=== PATIENT | female | born 1960 | race Caucasian/White ===

== ENCOUNTER 2024-03-20 11:41 | Inpatient (IN) | payer MEDICARE, SELFPAY ==
[2024-03-20] VITALS (14 sets, daily range): BP systolic 135–179; BP diastolic 44–106; PULSE 89–102; RESP 9–25; TEMP 36.2–36.8; O2SAT 98–100
--- NOTE | 2024-03-20 12:15 | DI.CT_ITS ---
Exam(s) CT HEAD WO EXAM: CT HEAD WO CLINICAL HISTORY: head injury on eliquis. TECHNIQUE: Imaging Protocol: Axial computed tomography images with coronal and sagittal reformatted images were created and reviewed COMPARISON: No exams were available for comparison FINDINGS: Ventricles and Extra axial spaces: Normal in size and morphology for the patient's age. Hemorrhage: None. Cerebral parenchyma: No evidence of acute infarct or mass. Midline shift: None. Brainstem/Cerebellum: Normal. Calvarium: Normal. Visualized Paranasal sinuses:Clear. Mastoids: Clear. Soft Tissues: Unremarkable. ORBITS: Unremarkable. PITUITARY: Not enlarged. IMPRESSION: No acute intracranial process. RADIATION DOSE DELIVERED: Total DLP DATA REPOSITORY: All CT scans at this facility are submitted to the National Radiology Data Registry (NRDR) Dose Index Registry (DIR) with the [employer] (ACR). RADIATION OPTIMIZATION: All CT scans at this facility use at least one of these dose optimization te chniques: automated exposure control; mA and/or kV adjustment per patient size (includes targeted exa ms where dose is matched to clinical indication); or iterative reconstruction.
--- NOTE | 2024-03-20 13:08 | ED.GENADUL_ITS ---
Discharge Plan Disposition Patient Disposition: Admit to [facility] Condition: Fair Discharge Details Chief Complaint: HeadInjury Clinical Impression: LOLITA (acute kidney injury), Breast cancer metastasized to multiple sites, Anticoagulated, Fall, Syncope Primary Care Provider: Unknown,Unknown ED Provider: Bambi Coy Home Meds and New Rx's Prescriptions: No Action Eliquis 2.5 mg tablet 2.5 mg PO BID spironolactone 100 mg tablet 400 mg PO DAILY furosemide [Lasix] 40 mg tablet 40 mg PO DAILY gabapentin 300 mg capsule 300 mg PO BID gabapentin 600 mg tablet 600 mg PO QHS venlafaxine [Effexor XR] 75 mg capsule,extended release 24hr 75 mg PO DAILY HPI General Date/Time Provider Initiated Documentation: 03/20/24 11:55 . Limitations to Documentation: no limitations . Information obtained by: patient, family and old records reviewed . HPI Narrat gladis: HPI: This is a 63-year-old female patient with a past medical history significant for stage IV breast cancer metastatic to bone, liver, lung, currently undergoing treatment/infusions at [facility]. She has a history of PJP pneumonia, as well as use of Eliquis for anticoagulation of pulmonary embolisms. The patient was on the toilet today, has been struggling with constipation for the last 5 days and is not improved with prune juice. She has been very unsteady since starting her treatment, and lost her balance, falling forward and striking her left forehead. She did not have loss of consciousness but has noted that she has been extremely fatigued since this event occurred, falling asleep and requiring her to carry her/lift her given her weakness. She did not injure any other part of her body. Has a area of ecchymosis over her left eyebrow with no associated lacerations. The patient is at baseline feeling very weak and tired, has tremors of her hands that have worsened today. She has been taking her prophylactic antibiosis as well as her daily medications without recent change. She reports that she has not had any significant chest or abdominal pain but her has noted that her abdomen seems distended and he can feel areas that he associates with stools. Prior to her fall they have been planning on trialing enemas as part of her bowel regimen. Exam: Gen: Awake and alert, falls asleep during interview, cachectic HEENT: Non-icteric sclera, pupils equal and reactive at 5 mm bilaterally. Ecchymosis to the lateral aspect of the left eyebrow with no skin breaks or lacerations. Neck: Supple no midline tenderness or step-offs, Lungs: No apparent respiratory distress, normal respiratory effort. Lung sounds clear bilaterally CV: Appears well perfused, heart with regular rate and rhythm, strong distal pulses Abdomen: Non-distended, soft, nontender to palpation without rigidity, rebound, or guarding MSK: Moves 4 extremities without apparent limitation in ROM. No peripheral edema noted Skin: Visualized skin without rashes, cyanosis. Neuro: Significant symmetrical weakness, no focal deficits appreciated, no sensory deficits Psych: Appropriate for situation. MDM: This is a 63-year-old female patient presenting for evaluation after a fall from the toilet with head strike on anticoagulation. My differential includes but is not limited to intracranial hemorrhage, skull fracture, certainly considered metabolic electrolyte derangement, vasovagal episode, orthostasis. Considered arrhythmia, ACS, kidney injury, liver disease, as well as infectious abnormalities including neutropenic fever, pneumonia, SBP, urinary tract infection, bacteremia. We will obtain broad laboratory workup including CBC, CMP, troponin, magnesium, urinalysis, and blood cultures. I will obtain an INR, and we will obtain CT imaging of the head, as well as the chest/abdomen/pelvis to evaluate for abnormalities which could explain the patient's symptoms. ED Course: Laboratory studies notable for a leukocytosis to 16.9, which is likely in the setting of demargination due to recent steroid use though infectious abnormalities cannot entirely be excluded. No anemia or thrombocytopenia noted. Chemistry panel is most notable for a new LOLITA with a BUN of 84 and a creatinine of 1.6, up from 24 and 0.7 once week ago. The patient has a mild hyperkalemia to 5.5, hyponatremia to 129, and evidence of an elevated bilirubin to 2.7, mild transaminitis, and elevated alkaline phosphatase. Lipase is below 3 times the upper limit of normal, urinalysis is noninfectious. I independently interpreted the patient CT imaging and discussed the findings with the radiologist, and note no intracranial hemorrhage, skull fracture. The patient's chest CT shows improvement in the groundglass opacities noted on [facility] records, unchanged pulmonary nodules. CT abdomen pelvis demonstrates multiple liver nodules, evidence of poor perfusion and spleen without obstructive findings, no evidence of ascites to suggest SBP. The patient had a large stool burden but no evidence of bowel obstruction, mass effect, or bowel wall thickening/enhancement. The patient was provided with a liter of fluid, she did have an additional syncopal episode while standing to use the bathroom that was associated with transient loss of consciousness, transient disordered regulation of breathing, and a return to baseline shortly after. She had improvement in her symptoms after IV fluids, and I did reach out to discuss the patient's case with [facility], we do not have any additional recommendations and are unfortunately unable to accept this patient to their care facility for admission given that the oncology service is capped and they do not have any specific oncology related needs. I for this reason admitted the patient to our hospitalist service for ongoing rehydration and monitoring of kidney function. The patient remained hemodynamically appropriate while under my care, admitted to the hospitalist service without incident. Bambi Coy MD Related Data Home Medications ?Medication ?Instructions ?Recorded ?Confirmed apixaban 2.5 mg tablet (Eliquis) 2.5 mg PO BID 03/20/24 03/20/24 furosemide 40 mg tablet (Lasix) 40 mg PO DAILY 03/20/24 03/20/24 gabapentin 300 mg capsule 300 mg PO BID 03/20/24 03/20/24 gabapentin 600 mg tablet 600 mg PO QHS 03/20/24 03/20/24 spironolactone 100 mg tablet 400 mg PO DAILY 03/20/24 03/20/24 venlafaxine 75 mg capsule,extended 75 mg PO DAILY 03/20/24 03/20/24 release 24 hr (Effexor XR) Allergies Allergy/AdvReac Type Severity Reaction Status Date / Time Sulfa (Sulfonamide AdvReac Intermediate Skin Rash Verified 03/20/24 11:51 Antibiotics) adhesive AdvReac Mild Topical Verified 03/20/24 11:51 Irritation General Stated Complaint: HeadInjury LORA: 4 Course Vital Signs Vital signs: Vital Signs Temperature 36.8 C 03/20/24 11:47 Pulse 95 H 03/20/24 11:47 Respiratory Rate 12 03/20/24 11:47 Blood Pressure 138/83 03/20/24 11:47 Pulse Oximetry 98 03/20/24 11:47 Temperature 36.8 C 03/20/24 11:47 Temperature Source Oral 03/20/24 11:47 Pulse 95 H 03/20/24 11:47 Respiratory Rate 12 03/20/24 11:47 Blood Pressure 138/83 03/20/24 11:47 Blood Pressure Position Sitting 03/20/24 11:47 Pulse Oximetry 98 03/20/24 11:47 Oxygen Delivery Method Room Air 03/20/24 11:47 Oxygen Flow Rate 0 03/20/24 11:47 Pain Level 0 03/20/24 11:47 Medical Decision Making Quality:SDOH Health Related Social Needs: No Data to Display PFSH All Active Problems (Updated 03/20/24 @ 16:23 by Bambi Coy MD) Syncope (Chronic) Fall (Acute) Anticoagulated (Acute) Breast cancer metastasized to multiple sites (Acute) LOLITA (acute kidney injury) (Acute) Social History Smoking risk assessment performed?: No Alcohol Intake: never Housing: house Do you feel safe at home: Yes Do you feel safe in your relationship?: Yes
[2024-03-20 13:10] LABS: Absolute Basophil Count 0.02 10^3/uL (0.0-0.2); Absolute Lymphocyte Count 0.69 10^3/uL (1.2-3.4); Absolute Monocyte Count 0.17 10^3/uL (0.1-0.8); Absolute Neutrophil Count 15.97 10^3/uL (1.2-6.7); Basophils % 0.1 %; HCT 41.2 % (36.0-46.0); HGB 14.4 g/dL (11.2-15.7); Immature Grans % 0.6 %; Lymphocytes % 4.1 %; MCH 34.5 pg (27.0-33.0); MCV 99 fL (80-95); MPV 10.2 fL (8.0-11.0); Neutrophils % 94.2 %; Platelet Count 280 10^3/uL (130-400); RBC 4.17 10^6/uL (3.93-5.22); RDW 14.7 % (11.7-14.6); WBC 16.95 10^3/uL (4.4-10.8)
--- NOTE | 2024-03-20 13:15 | RT.EKG_ITS ---
APPROVED REPORT Exam: Resting ECG Reason for Exam: syncopal episode Patient Location: E HR:83 bpm ECG Measurements Heart Rate 83 AXIS MN 153 P 71 QRSd 89 QRS 50 QT 359 T 73 QTc 422 Conclusion Sinus rhythm, rate 83 No interval abnormalities Mild peaked T-waves V3 No STEMI
[2024-03-20 13:27] LABS: ALT 70 U/L (14-59); AST 67 U/L (15-37); Albumin 2.9 g/dL (3.4-5.0); Alkaline Phosphatase 362 U/L (46-116); Anion Gap 8.3 mmol/L (3-11); Bilirubin, Total 2.73 mg/dL (0.2-1.0); CO2 26.7 mmol/L (21.0-32.0); CREATININE 1.6 mg/dL (0.55-1.02); Chloride 94 mmol/L (98-107); Estimated GFR 36.24 (mL/min/1.73m2); Glucose 176 mg/dL (74-106); Lipase 97 U/L (16-77); Potassium 5.5 mmol/L (3.5-5.1); Sodium 129 mmol/L (136-145); Total Protein 8.1 g/dL (6.4-8.2)
[2024-03-20 13:30] LABS: BUN 84 mg/dL (7-18)
[2024-03-20 13:34] LABS: INR 1.1 (0.9-1.1); Prothrombin Time 10.9 sec (9.1-11.1)
[2024-03-20 13:35] LABS: Calcium 10.8 mg/dL (8.5-10.1)
[2024-03-20] MEDS: Omnipaque 350 MG/ML 100 ML BTL IJ (14:00)
[2024-03-20] MEDS: Normal Saline - Diluent 50 ML VIAL IJ (14:02)
--- NOTE | 2024-03-20 14:18 | DI.CT_ITS ---
Exam(s) CT CHEST/ABD/PEL W EXAM: CT CHEST/ABD/PEL W CLINICAL HISTORY: chemo, breast Ca, hx PJP, constipation. TECHNIQUE: Imaging Protocol: Axial computed tomography images with coronal and sagittal reformatted images were created and reviewed CONTRAST MATERIAL: Intravenous: Omnipaque 350 Contrast volume:85 ml Oral: / no COMPARISON: No exams were available for comparison FINDINGS: CHEST: Tracheobronchial tree: Patent. Pulmonary parenchyma: No consolidation. 6 millimeter nodule left upper lobe. Pleura: No effusion or pneumothorax. Mediastinum: Within normal limits. Aorta: Thoracic portion non-dilated. Pulmonary arteries: No visible emboli. Heart: No pericardial effusion. Bones: Old bilateral rib fractures.. No compression fractures. Soft tissues: Port over right pectoral muscle. Bilateral breast implants. ABDOMEN and PELVIS: Liver: Liver has a lobulated contour. Multiple abnormal low-density lesions suspicious for metastase s. Gallbladder and biliary tract: Gallbladder mostly contracted. Layering stones noted. No biliary dil atation. Pancreas: Normal density, no abnormal calcifications or inflammatory process. Spleen: Abnormal perfusion. Splenic artery and vein appear attenuated near splenic hilum.. Kidneys: Normal size, contour and axis. No radiodense stones. No obstructive uropathy. No suspicious masses seen. Adrenal glands: No masses seen. Aorta: Abdominal portion non-dilated. Lymph nodes: Within normal limits. Soft tissues: Unremarkable. Bladder: Unremarkable. Bowel: No obstruction or bowel wall thickening. Large quantity of stool seen throughout the colon. Peritoneal cavity: No ascites. No focal collection. No mesenteric inflammatory response. No free ai r. Bones: Lytic lesion in right ilium. Hardware spanning L3 through S1. Severe degenerative disc manuel es at L1-2. Reproductive organs: Calcified uterine fibroid. IMPRESSION: 6 millimeter right upper lobe nodule may represent metastatic lesion. No acute abnormality in the ch est. Large quantity of stool seen throughout the colon consistent with constipation. No small bowel obstr uction. No inflammatory changes. Multiple liver lesions suspicious for metastases. Poor perfusion to the spleen. The splenic artery and vein appear attenuated near the splenic hilum. There is no visible obstructing mass. Lytic lesion in the right iliac crest consistent with metastasis. Findings called to Dr. Coy of the emergency department. RADIATION DOSE DELIVERED: Total DLP DATA REPOSITORY: All CT scans at this facility are submitted to the National Radiology Data Registry (NRDR) Dose Index Registry (DIR) with the [employer] (ACR). RADIATION OPTIMIZATION: All CT scans at this facility use at least one of these dose optimization te chniques: automated exposure control; mA and/or kV adjustment per patient size (includes targeted exa ms where dose is matched to clinical indication); or iterative reconstruction.
--- OUTSIDE RECORDS SUMMARY | 2024-03-20 14:28 | XMS_ITS | Continuity of Care Document ---
Author Organization [facility] Address Unknown Care Team Providers Care Waste Disposal Leakage Tester Name Role Phone RAMSES KATE Primary Care Physician [phone] Encounter Date(s): 07/04/23 - 07/04/23 [facility] [address] [place] [id number] Discharge Disposition: Home or Self Care Attending Physician: ALISSA PORTER MD Admitting Physician: ALISSA PORTER MD Allergies, Adverse Reactions, Alerts Substance Criticality Severity Reaction Reaction Severity Status amoxicillin Rash Active sulfa drugs Rash Active Bactrim Rash Active Assessment and Plan Future Appointments Appointment Date:08/09/2023 09:40:00 AM Scheduled Provider:ALISSA PORTER MD Location:[facility] - Appointment Type:[facility] Office Visit Post Op or Procedure Immunizations Given and Recorded Vaccine Date Status Refusal Reason Pfizer COVID-19 mRNA BNT-162b2 vacc 02/27/21 Recor ded Pfizer COVID-19 mRNA BNT-162b2 vacc 09/17/20 Recor ded Pfizer COVID-19 mRNA BNT-162b2 vacc 08/27/20 Recor ded Medications Ambien 5 mg, Oral, qHS, PRN PRN: as needed for insomnia, 0 Refill(s) Start Date: 01/21/17 Status: Ordered capecitabine 500 mg oral tablet 1,500 mg = 3 tab(s), Oral, BID, on 7 days, off 7 days, 0 Refill(s) Start Date: 06/22/23 Status: Ordered Centrum Silver Ultra Women's 1 tab(s), Oral, Daily, 0 Refill(s) Start Date: 12/06/11 Status: Ordered cetirizine 10 mg oral capsule = 1 cap(s), Oral, Daily, PRN PRN: for allergy symptoms, # 40 cap(s), 0 Refill(s) Start Date: 12/06/11 Status: Ordered Effexor XR 150 mg oral capsule, extended release 150 mg = 1 cap(s), Oral, Daily, 0 Refill(s) Start Date: 12/06/11 Status: Ordered gabapentin See Instructions, 300mg BID 600mg QHS, 0 Refill(s) Start Date: 10/15/16 Status: Ordered ibuprofen 400 mg, Oral, q6hr, PRN PRN: as needed for pain, 0 Refill(s) Start Date: 06/22/23 Status: Ordered omeprazole 20 mg oral delayed release capsule 20 mg = 1 cap(s), Oral, Daily, 0 Refill(s) Start Date: 12/06/11 Status: Ordered Red Yeast Rice 1,200 mg, Oral, Daily, 0 Refill(s) Start Date: 12/06/11 Status: Ordered Valtrex 500 mg, Oral, Daily, 0 Refill(s) Start Date: 01/21/17 Status: Ordered Vitamin D3 See Instructions, 1000iu 2 q am, 1 mid day, 2 at HS, 0 Refill(s) Start Date: 05/21/21 Status: Ordered Problem List Condition Confirmation Course Effective Dates Status Health Status Informant Adjustment disorder with anxious mood Confirmed Active Asthma without status asthmaticus Confirmed Active Genital herpes simplex Confirmed Active Lumbar spondylosis Confirmed Active Breast cancer Confirmed Active Pure hypercholesterolemia Confirmed Active Procedures Procedure Date Related Diagnosis Body Site Status left foot rocha fracture int ermedulary screw fixation 06/23/23 Completed right 1st MTP fusion & IM sc rew 5th metatarsal 05/27/21 Completed COLONOSCOPY 12/06/11 Completed lamine. carpel tunnel Comple joann Lipoma removal, back Comp leted Right breast reconstruction [facility] Completed rt mastectomy Completed Spinal decompression and fus ion L3-S1 [facility] Completed Social History Social History Type Response Smoking Status Never smoker Sex Female Implantable Device List Procedure Provider Procedure Date Device Type Site REDUCTION OF FX OPEN INTERNA L FIXATION - Unknown 06/23/23 Unknown Foot, Left Device Identifier Serial Number Lot or Batch Number Manufacturing Date Expiration Date Distinct Identification Code MRI Safety Implantable Status Assigning Authority Unknown Unknown Unknown Unknown Unknown Unknown Unknown Active Unk nown Procedure Provider Procedure Date Device Type Site FOOT BONE Unknown 05/27/21 Unknown Unknown Device Identifier Serial Number Lot or Batch Number Manufacturing Date Expiration Date Distinct Identification Code MRI Safety Implantable Status Assigning Authority Unknown Unknown Unknown Unknown Unknown Unknown Unknown Active Unk nown Unknown Unknown Unknown Unknown Unknown Unknown Unknown Active Unk nown Unknown Unknown Unknown Unknown Unknown Unknown Unknown Active Unk nown Patient Care team information Care Team Personnel Name: RAMSES KATE MD Position: Community Physician Member Role: Primary Care Physician Address: Address: [place] [address] [place] [address]- Care Team Related Persons Name: PANTERA KIRSTY Address: Home [address] [facility], [phone]
--- OUTSIDE RECORDS SUMMARY | 2024-03-20 14:28 | XMS_ITS | Continuity of Care Document ---
Author Organization [facility] Address [address] [place] [address] Care Team Providers Care Newcomer Hostess Name Role Phone RAMSES KATE Primary Care Physician [phone] Encounter Date(s): 04/02/21 - 04/02/21 [facility] [address] [place] [address]- Discharge Disposition: Home or Self Care Allergies, Adverse Reactions, Alerts Substance Reaction Severity Status amoxicillin Active sulfa drugs Active Bactrim Active Assessment and Plan Future Appointments Appointment Date:04/13/2021 09:30:00 AM Scheduled Provider:ALISSA PORTER MD Location:[facility] - [facility] Appointment Type:[facility] Office Visit Follow Up Appointment Date:05/25/2021 10:30:00 AM Scheduled Provider: Location:[facility] Appointment Type:Specimen Collection Preop Appointment Date:05/27/2021 07:30:00 AM Scheduled Provider: Location:OR Appointment Type:Surgery - OR Appointment Date:06/08/2021 02:40:00 PM Scheduled Provider:ALISSA PORTER MD Location:[facility] - [facility] Appointment Type:[facility] Office Visit Post Op or Procedure Medications Ambien 5 mg, Oral, qHS, PRN PRN: as needed for insomnia, 0 Refill(s) Start Date: 01/21/17 Status: Ordered Calcium 600+D 1 tab(s), Oral, TID, 0 Refill(s) Start Date: 12/06/11 Status: Ordered Centrum Silver Ultra Women's 1 tab(s), Oral, Daily, 0 Refill(s) Start Date: 12/06/11 Status: Ordered cetirizine 10 mg oral capsule = 1 cap(s), Oral, Daily, PRN: for allergy symptoms, # 40 cap(s), 0 Refill(s) Start Date: 12/06/11 Status: Ordered Effexor XR 150 mg oral capsule, extended release 150 mg = 1 cap(s), Oral, Daily, 0 Refill(s) Start Date: 12/06/11 Status: Ordered Faslodex 50 mg/mL intramuscular solution 50 mg = 1 mL, IM, qMonth, # 5 mL, 0 Refill(s) Start Date: 02/11/21 Status: Ordered gabapentin See Instructions, 300mg BID 600mg QHS, 0 Refill(s) Start Date: 10/15/16 Status: Ordered omeprazole 20 mg oral delayed release capsule 20 mg = 1 cap(s), Oral, Daily, 0 Refill(s) Start Date: 12/06/11 Status: Ordered Red Yeast Rice 1,200 mg, Oral, Daily, 0 Refill(s) Start Date: 12/06/11 Status: Ordered Unisom 25 mg, Oral, Daily, 0 Refill(s) Start Date: 01/21/17 Status: Ordered Valtrex 500 mg, Oral, Daily, 0 Refill(s) Start Date: 01/21/17 Status: Ordered Procedures Procedure Date Related Diagnosis Body Site Status COLONOSCOPY 12/06/11 Completed lamine. carpel tunnel Comple joann rt mastectomy Completed Social History Social History Type Response Smoking Status Never smoker Sex Female
--- OUTSIDE RECORDS SUMMARY | 2024-03-20 14:28 | XMS_ITS | Continuity of Care Document ---
Author Organization [facility] Address [address] [place] [address] Care Team Providers Care Oil Pipeline Operator Name Role Phone RAMSES KATE Primary Care Physician Encounter Date(s): 04/30/21 - 04/30/21 [facility] [address] [place] [id number]- [place] [phone] Discharge Disposition: Home or Self Care Attending Physician: ALISSA PORTER MD Admitting Physician: ALISSA PORTER MD Allergies, Adverse Reactions, Alerts Substance Reaction Severity Status amoxicillin Active sulfa drugs Active Bactrim Active Assessment and Plan Future Appointments Appointment Date:05/25/2021 10:30:00 AM Scheduled Provider: Location:[facility] [...]
--- OUTSIDE RECORDS SUMMARY | 2024-03-20 14:28 | XMS_ITS | Continuity of Care Document ---
Author Organization [facility] Address Unknown Care Team Providers Care Fireproof Door Assembler Name Role Phone RAMSES KATE Primary Care Physician Encounter Date(s): 10/09/21 - 10/09/[address] [address] Discharge Disposition: Home or Self Care Attending Physician: Nathaniel Graham PA-C Admitting Physician: Nathaniel Graham PA-C Allergies, Adverse Reactions, Alerts Substance Reaction Severity Status amoxicillin Rash Active sulfa drugs Rash Active Bactrim Rash Active Assessment and Plan Diagnostic Tests Pending * Urine Culture 10/09/21 Immunizations Given and Recorded Vaccine Date Status Refusal Reason Pfizer COVID-19 mRNA BNT-162b2 vacc 02/27/21 Recor ded Pfizer COVID-19 mRNA BNT-162b2 vacc 09/17/20 Recor ded Pfizer COVID-19 mRNA BNT-162b2 vacc 08/27/20 Recor ded Medications Ambien 5 mg, Oral, qHS, PRN PRN: as needed for insomnia, 0 Refill(s) Start Date: 01/21/17 Status: Ordered Centrum Silver Ultra Women's 1 [...] 0 Refill(s) Start Date: 10/15/16 Status: Ordered Ibrance 100 mg, Oral, Daily, Per pt's discussion w/ prescriber, stopped 05/03, will restart after surgery.,0 Refill(s) Start Date: 05/21/21 Status: Ordered omeprazole 20 mg oral delayed [...] Date: 05/21/21 Status: Ordered Problem List Condition Effective Dates Status Health Status Inform ant Adjustment disorder with anx ious mood(Confirmed) Active Asthma without status asthmaticus(Confirmed) Active COVID-19(Confirmed) 1 Active Genital herpes simplex(Confirmed) Active Lumbar spondylosis(Confirmed) Active Breast cancer(Confirmed) Active Pure hypercholesterolemia(Confirmed) Active 1Jan 2020 Procedures Procedure Date Related Diagnosis Body Site Status right 1st MTP fusion & IM sc [...] Unknown Unknown Unknown Unknown Active Unk nown Care Team Care Team Personnel Name: RAMSES KATE MD Position: Community Physician Med Service: [facility] Member Role: Primary Care Physician Address: [place] [address] [place] [address]- Care Team Related Persons Name: KIRSTY MOTT [address] [place], [phone]
--- OUTSIDE RECORDS SUMMARY | 2024-03-20 14:28 | XMS_ITS | Continuity of Care Document ---
Author Organization [facility] Address Unknown Care Team Providers Care Corporate Specialist Name Role Phone RAMSES KATE Primary Care Physician Encounter Date(s): 09/18/21 - 09/18/21 [facility] [address] [place] [id number] [phone] Discharge Disposition: Home or Self Care Attending Physician: ALISSA PORTER MD Admitting Physician: ALISSA PORTER MD Allergies, Adverse Reactions, Alerts Substance Reaction Severity Status amoxicillin Rash Active sulfa drugs Rash Active Bactrim Rash Active Immunizations Given and Recorded Vaccine Date Status [...] KATE MD Position: Community Physician Med Service: [facility] Role: Primary Care Physician Address: [address] Care Team Related Persons Name: KIRSTY MOTT [address], [id number]
--- OUTSIDE RECORDS SUMMARY | 2024-03-20 14:28 | XMS_ITS | Continuity of Care Document ---
Author Organization [facility] Address [address] [place] [address] Care Team Providers Care Car Hopper Name Role Phone RAMSES KATE Primary Care Physician [phone] Encounter Date(s): 07/14/21 - 07/14/21 [facility] [address] [place] [id number]- [place] [phone] Discharge Disposition: Home or Self Care Attending Physician: ALISSA PORTER MD Admitting Physician: ALISSA PORTER MD Allergies, Adverse Reactions, Alerts Substance Reaction Severity Status amoxicillin Rash Active sulfa drugs Rash Active Bactrim Rash Active Assessment and Plan Future Appointments Appointment Date:09/18/2021 09:30:00 AM Scheduled Provider:ALISSA PORTER MD Location:[facility] Appointment Type:RVOC Office Visit Follow Up Immunizations Given and Recorded Vaccine Date Status Refusal Reason Pfizer COVID-19 mRNA BNT-162b2 vacc 02/27/21 Recor ded Pfizer COVID-19 mRNA BNT-162b2 vacc 09/17/20 Recor ded Pfizer COVID-19 mRNA BNT-162b2 vacc 08/27/20 Recor ded Medications Ambien 5 mg, Oral, qHS, PRN PRN: as needed for insomnia, 0 Refill(s) Start Date: 01/21/17 Status: Ordered aspirin 81 mg oral enteric coated tablet 81 mg = 1 tab(s), Oral, BID, # 60 tab(s), 0 Refill(s) Start Date: 05/27/21 Status: Ordered Centrum Silver Ultra Women's 1 [...] 0 Refill(s) Start Date: 12/06/11 Status: Ordered Percocet 5/325 oral tablet 1 tab(s), Oral, q4hr, PRN PRN for pain, # 10 tab(s), 0 Refill(s) Start Date: 05/27/21 Status: Ordered Red Yeast Rice 1,200 mg, [...] Response Smoking Status Never smoker Sex Female Medical Equipment Implanted Date:05/27/21Target Site:Unknown Description Quantity MRI Company Model SCREW LORA [id number] PRT THRD 1 SYNTH ES [facility] Unknown URI:No Information Assigning Authority: FDA SCREW JORGE [id number] SLFTP W/ T8 STARDRIVE RECESS 1 SYNTHES [facility] Unknown URI:No Information Assigning Authority: FDA SCREW JORGE [id number] SLFTP W/ T8 STARDRIVE RECESS 1 SYNTHES [facility] Unknown URI:No Information Assigning Authority: FDA
--- OUTSIDE RECORDS SUMMARY | 2024-03-20 14:29 | XMS_ITS | Continuity of Care Document ---
Author Organization [facility] Address Unknown Care Team Providers Care Cereal Miller Name Role Phone RAMSES KATE Primary Care Physician [phone] Encounter Date(s): 08/09/23 - 08/09/23 [facility] [address] [place] [id number] Discharge Disposition: Home or Self Care Attending Physician: ALISSA PORTER MD Admitting Physician: ALISSA PORTER MD Allergies, Adverse Reactions, Alerts Substance Criticality Severity Reaction Reaction Severity Status amoxicillin Rash Active sulfa drugs Rash Active Bactrim Rash Active Assessment and Plan Future Appointments Appointment Date:10/03/2023 10:10:00 AM Scheduled Provider:ALISSA PORTER MD Location:OC - Appointment Type:RVOC Office Visit Follow Up Immunizations [...] Member Role: Primary Care Physician Address: Address: [address] [place] [address]- Care Team Related Persons Name: KIRSTY MOTT Address: Home [address] [facility], [id number]
--- OUTSIDE RECORDS SUMMARY | 2024-03-20 14:29 | XMS_ITS | Continuity of Care Document ---
Author Organization [facility] Address Unknown Care Team Providers Care Data Analytics Developer Name Role Phone RAMSES KATE Primary Care Physician [phone] Encounter Date(s): 04/24/21 - 04/24/21 [facility] [address] [place] [address]- Discharge Disposition: Home or Self Care Attending Physician: ALISSA PORTER MD Admitting Physician: ALISSA PORTER MD Allergies, Adverse Reactions, Alerts Substance Reaction Severity Status amoxicillin Active sulfa drugs Active Bactrim Active Assessment and Plan Future Appointments Appointment Date:04/30/2021 11:00:00 AM Scheduled Provider:ALISSA PORTER MD Location:RVOC - [...] carpel tunnel Comple joann rt mastectomy Completed Results Laboratory List Name Date Vitamin D Total (25 Hydroxy) 04/24/21 Most recent to oldest [Reference Range]: 1 Vitamin D Total (25 Hydroxy) [30.0-100.0 ng/mL] 42.2 ng/mL (04/24/21 9:10 AM) Social History Social History Type Response Smoking Status Never smoker Sex Female
--- OUTSIDE RECORDS SUMMARY | 2024-03-20 14:29 | XMS_ITS | Continuity of Care Document ---
Author Organization [facility] Address Unknown Care Team Providers Care Animal Therapist Name Role Phone RAMSES KATE Primary Care Physician [phone] Encounter Date(s): 06/23/23 - 06/23/[address] [address] Discharge Disposition: Home or Self Care Attending Physician: ALISSA GEE MD Admitting Physician: ALISSA GEE MD Allergies, Adverse Reactions, Alerts Substance Criticality Severity Reaction Reaction Severity Status amoxicillin Rash Active sulfa drugs Rash Active Bactrim Rash Active Assessment and Plan Future Appointments Appointment Date:07/06/2023 08:50:00 AM Scheduled Provider:ALISSA GEE MD Location:[facility] - Appointment Type:RVOC Office Visit Post Op or Procedure O Functional Status 06/22/23 ADLs Independent Immunizations Given and Recorded Vaccine Date Status [...] 0 Refill(s) Start Date: 05/21/21 Status: Ordered Mental Status 06/23/23 Level of Consciousness Alert Orientation Assessment Oriented x 4 Problem List Condition Confirmation Course Effective Dates [...] decompression and fus ion L3-S1 [facility] Completed Vital Signs Most recent to oldest [Reference Range]: 1 2 3 Temperature Temporal Artery [36.3-37.8 DegC] 37 DegC (06/23/23 4:19 PM) 36.8 DegC (06/23/23 3:45 PM) 36.4 DegC (06/23/23 2:48 PM) Peripheral Pulse Rate [60-100 bpm] 79 bpm (06/23/23 4:19 PM) 82 bpm (06/23/23 3:45 PM) 73 bpm (06/23/23 3:30 PM) Heart Rate Monitored [60-100 bpm] 82 bpm (06/23/23 3:45 PM) 72 bpm (06/23/23 3:30 PM) 82 bpm (06/23/23 3:16 PM) Respiratory Rate [14-20 br/min] 18 br/min (06/23/23 4:19 PM) 21 br/min *HI* (06/23/23 3:45 PM) 14 br/min (06/23/23 3:30 PM) Blood Pressure [90-140/60-90 mmHg] 116/70mmHg (06/23/23 4:19 PM) 120/83mmHg (06/23/23 3:45 PM) 134/77mmHg (06/23/23 3:30 PM) Mean Arterial Pressure, Cuff 78 mmHg (06/23/23 4:19 PM) 93 mmHg (06/23/23 3:45 PM) 91 mmHg (06/23/23 3:30 PM) Blood Pressure 133/73mmHg (06/23/23 12:25 PM) Mean Arterial Presure, Manual 93 mmHg (06/23/23 12:25 PM) Social History Social History Type Response Smoking [...] Unknown Unknown Unknown Unknown Active [facility] nown Hospital Discharge Instructions Patient Education 06/23/2023 15:26:38 Dr. Gee Orthopedic Post-Operative [facility] Home Care Instructions Dr. Gee Orthopedic Post-Operative Things to report to your doctor: ??? Change in color (paleness or blue/hanks), temperature (coolness) or sensation (numbness or tingling) in your operative extremity. ??? A decrease in your ability to move your operative extremity ??? Increased swelling and/or pain that does not go away after taking your pain medication, resting, elevating, and repositioning your operative leg. ??? Redness, warmth or increased drainage from your incision, (if incision is visible). ??? A temperature greater than 101 degrees F and/or chills. ??? Tenderness or pain in either calf. If you experience chest pain, shortness of breath, difficulty breathing, or if your bandage becomessoaked with blood, call 9-1-1 or go to the nearest Emergency Room. Diet: ??? Begin your usual diet. ??? Pain medications may cause constipation. Add more fiber to your diet to help your bowels stay regular. Foods high in fiber are grains, bran, beans, fresh fruits, and vegetables. ??? You may take an wjsu-sfs-odrqtma stool softener, if needed. ??? Drink 8 glasses of healthy liquids every day. Medication: ??? Aspirin 81mg Take one (1) tablet by mouth twice a day for one (1) month. Start tomorrow. Activity: ??? Weight bearing: non-weight bearing ??? You may resume driving when your doctor says it is safe to do so. splint will be on for 2 weeks , bring your boot to your office visit. Treatments: ??? Apply ice to your extremity for 30 minutes every hour while awake for the first 48 hours. This will lessen pain and swelling. You may continue to ice after the first 48 hours if it helps keep youcomfortable. ??? Use a thin towel between your skin and the ice to prevent frostbite or skin injury. ??? Rest and elevate your leg above the level of your heart, if able (1-2 pillows) for 2-3 days. Dressing Care: ??? Leave your dressing on until you see your doctor (a few drops of water will not hurt it.) ??? Keep it as clean as possible. ??? It is normal to see a small amount of blood on the outside of your dressing. Shower: ??? Protect dressing from getting wet. EMR 09/14/18 06/23/2023 15:22:11 General Anesthesia [facility] Home Care Instructions General Anesthesia General Anesthesia Things to report to your doctor: ??? Persistent vomiting. Diet: ??? Since nausea and vomiting can occur after anesthesia, it is best to: ??? Drink only small amounts at a time to see how you feel. ??? Begin with water, william sharifa, non ???acid juices, tea, soup, crackers and toast. ??? Avoid spicy, greasy, or highly seasoned foods for about 24 hours. ??? Begin your usual diet after 24 hours, unless otherwise instructed by your doctor. ??? Do not drink alcohol for the next 24 hours. ??? Use lozenges if you have a sore throat. Activity: ??? You might feel lightheaded or dizzy. Rest and begin your usual activity slowly. ??? Do not drive or run machinery for at least 24 hours, or while you are taking narcotic pain medication. ??? We strongly recommend that you not stay alone, and have a responsible person stay overnight with you. ??? You should not plan to make important decisions, related to your job, money, etc., or sign legal documents for the next 24 hours. Other: You may have a sore throat from the breathing tube that is sometimes used during anesthesia.You may feel achy. In a few days, you should feel better. Reviewed 11/18/2022 Patient Care team information Care Team Personnel Name: ARMSES KATE MD Position: Community Physician Member Role: Primary Care Physician Address: Address: [address] [place] [address] [place] Care Team Related Persons Name: KIRSTY MOTT Address: Home [address] [facility], [phone]
--- OUTSIDE RECORDS SUMMARY | 2024-03-20 14:29 | XMS_ITS | Continuity of Care Document ---
Author Organization [facility] Address Unknown Care Team Providers Care Filling Station Equipment Mechanic Name Role Phone RAMSES KATE Primary Care Physician Encounter Date(s): 10/14/23 - 10/14/[address] [address] Encounter Diagnosis Ascites(Discharge Diagnosis) - 10/14/23 Breast carcinoma metastatic to multiple sites(Discharge Diagnosis) - 10/14/23 Discharge Disposition: Home or Self Care Attending Physician: DEBBY CAIN PA-C Admitting Physician: DEBBY CAIN PA-C Allergies, Adverse Reactions, Alerts Substance Criticality Severity Reaction Reaction Severity Status amoxicillin Rash Active sulfa drugs Rash Active Bactrim Rash Active Assessment and Plan Future Appointments Appointment Date:12/23/2023 10:10:00 AM Scheduled Provider:ALISSA PORTER MD Location:[facility] Appointment Type:RVOC Office Visit Follow Up Diagnostic Tests Pending * Urinalysis Reflex Microscopic, Culture if 10/14/23 Immunizations Given and Recorded Vaccine Date Status Refusal Reason (Tdap) diphth/acel pertuss/tetanus adult 04/14/22 Given (Tdap) diphth/acel pertuss/tetanus adult 11/19/11 Given zoster vaccine, inactivated 07/15/21 Given zoster vaccine, inactivated 03/17/21 Given Pfizer COVID-19 mRNA BNT-162b2 vacc 02/27/21 Recor ded Pfizer COVID-19 mRNA BNT-162b2 vacc 09/17/20 Recor ded Pfizer COVID-19 mRNA BNT-162b2 vacc 08/27/20 Recor ded pneumococcal 23-valent vaccine 02/09/19 Given pneumococcal 23-valent vaccine 05/19/12 Given hepatitis A adult vaccine 04/13/07 Given Medications Ambien 5 mg, Oral, qHS, PRN [...] 0 Refill(s) Start Date: 06/22/23 Status: Ordered ibuprofen See Instructions, PRN Start Date: 10/14/23 Status: Ordered omeprazole 20 mg oral delayed [...] Start Date: 05/21/21 Status: Ordered Mental Status 10/14/23 Orientation Assessment Oriented x 4 Problem List Condition Confirmation Course Effective Dates Status Health Status Informant Adjustment disorder with anxious mood Confirmed Active Asthma without status asthmaticus Confirmed Active Genital herpes simplex Confirmed Active Lumbar spondylosis Confirmed Active Breast cancer Confirmed Active Pure hypercholesterolemia Confirmed Active Procedures Procedure Date Related Diagnosis Body Site Status NFCT DS Rna 4 Targets Upper Respiratory Specimen 08/12/23 Completed left foot rocha fracture int ermedulary screw fixation 06/23/23 Completed right 1st MTP fusion & IM sc rew 5th metatarsal 05/27/21 Completed COLONOSCOPY 12/06/11 Completed lamine. carpel tunnel Comple joann Lipoma removal, back Comp leted Right breast reconstruction [facility] Completed rt mastectomy Completed Spinal decompression and fus ion L3-S1 [facility] Completed Results Laboratory List Name Date .Estimated Glomerular Filtration Rate 10/14/23 Auto Differential 10/14/23 CBC Auto Diff reflex Manual Diff 10/14/23 Comprehensive Metabolic Panel 10/14/23 Lipase Level 10/14/23 Most recent to oldest [Reference Range]: 1 AGAP 9 *NA* (10/14/23 3:47 PM) A/G Ratio 0.7 *NA* (10/14/23 3:47 PM) BUN/Creat Ratio 16 *NA* (10/14/23 3:47 PM) RBC [4.00-5.20 x10(6)/mcL] 3.58 x10(6)/m cL *LOW* (10/14/23 3:47 PM) RDW [11.5-14.5 %] 15.9 % *HI* (10/14/23 3:47 PM) Sodium Level [136-145 mmol/L] 140 mmol/L (10/14/23 3:47 PM) Total Protein [6.4-8.2 gm/dL] 6.4 gm/dL (10/14/23 3:47 PM) AST [15-37 IU/L] 123 IU/L 1 *HI* (10/14/23 3:47 PM) Bili Total [0.20-1.00 mg/dL] 1.19 mg/dL *HI* (10/14/23 3:47 PM) CO2 [21-32 mmol/L] 24 mmol/L (10/14/23 3:47 PM) Albumin Level [3.4-5.0 gm/dL] 2.7 gm/dL *LOW* (10/14/23 3:47 PM) Alk Phos [48-129 unit/L] 398 unit/L *HI* (10/14/23 3:47 PM) ALT [13-61 IU/L] 78 IU/L 2 *HI* (10/14/23 3:47 PM) Hct [36.0-46.0 %] 36.3 % (10/14/23 3:47 PM) Hgb [12.0-15.0 gm/dL] 11.4 gm/dL *LOW* (10/14/23 3:47 PM) Lipase Lvl [13-75 IU/L] 32 IU/L (10/14/23 3:47 PM) MCH [26.0-34.0 pg] 31.8 pg (10/14/23 3:47 PM) MCHC [31.0-37.0 gm/dL] 31.4 gm/dL (10/14/23 3:47 PM) MCV [80-100 fL] 101 fL *HI* (10/14/23 3:47 PM) MPV [9.2-12.7 fL] 10.7 fL (10/14/23 3:47 PM) Glucose Level [74-106 mg/dL] 110 mg/dL 3 *HI* (10/14/23 3:47 PM) Platelet [150-350 x10(3)/mcL] 128 x10(3) /mcL *LOW* (10/14/23 3:47 PM) Potassium Level [3.5-5.1 mmol/L] 3.3 mmo l/L *LOW* (10/14/23 3:47 PM) WBC [4.5-11.0 x10(3)/mcL] 7.7 x10(3)/mcL (10/14/23 3:47 PM) BUN [7-18 mg/dL] 13 mg/dL (10/14/23 3:47 PM) Calcium Level [8.5-10.1 mg/dL] 8.9 mg/dL (10/14/23 3:47 PM) Chloride [98-107 mmol/L] 110 mmol/L *HI* (10/14/23 3:47 PM) eGFR AA >60 mL/min/1.73 m2 4 *NA* (10/14/23 3:47 PM) eGFR EASTON >60 mL/min/1.73 m2 5 *NA* (10/14/23 3:47 PM) Neutrophil Absolute [1.50-7.80 x10(3)/mc L] 5.70 x10(3)/mcL (10/14/23 3:47 PM) Lymphocyte Absolute [1.10-4.80 x10(3)/mc L] 0.99 x10(3)/mcL *LOW* (10/14/23 3:47 PM) Monocyte Absolute [0.00-0.80 x10(3)/mcL] 0.81 x10(3)/mcL *HI* (10/14/23 3:47 PM) Eosinophil Absolute [0.00-0.30 x10(3)/mc L] 0.11 x10(3)/mcL (10/14/23 3:47 PM) Basophil Absolute [0.00-0.10 x10(3)/mcL] 0.03 x10(3)/mcL (10/14/23 3:47 PM) Imm Gran Absolute 0.02 /mcL *NA* (10/14/23 3:47 PM) NRBC % [0.0-0.2 %] 0.0 % (10/14/23 3:47 PM) Osmol Calculated 280 mOsm/kg *NA* (10/14/23 3:47 PM) Eosinophil Auto [1.0-4.0 %] 1.4 % (10/14/23 3:47 PM) Immature Granulocyte Auto 0 % *NA* (10/14/23 3:47 PM) Lymphocyte Auto [24.0-44.0 %] 12.9 % *LOW* (10/14/23 3:47 PM) Monocyte Auto [2.0-11.0 %] 10.6 % (10/14/23 3:47 PM) Neutrophil Auto [31.0-76.0 %] 74.4 % (10/14/23 3:47 PM) Basophil Auto [0.0-2.0 %] 0.4 % (10/14/23 3:47 PM) Creatinine [0.6-1.3 mg/dL] 0.8 mg/dL (10/14/23 3:47 PM) 1Interpretive Data: Falsely decreased results of up to 19% may be seen in patients taking sulfasalazine or sulfapyridine. 2Interpretive Data: Falsely decreased results of up to 72% may be seen in patients taking sulfasalazine and falsely decreased results of up to 19% may be seen in patients taking sulfapyridine. 3Interpretive Data: Falsely decreased results of up to 21% may be seen in patients taking sulfasalazine. 4Interpretive Data: Estimated GFR values are reported for both (AA) and Non AfricanAmerican (EASTON) populations. The eGFR has been validated only in healthy adults 18 - 70 years of age. The calculation has not been validated for women, patients of extreme body mass, or for patients with unusual dietary intake. 5Interpretive Data: Estimated GFR values are reported for both (AA) and Non AfricanAmerican (EASTON) populations. The eGFR has been validated only in healthy adults 18 - 70 years of age. The calculation has not been validated for women, patients of extreme body mass, or for patients with unusual dietary intake. Vital Signs Most recent to oldest [Reference Range]: 1 2 Temperature Oral [35.8-37.3 DegC] 36.3 D egC (10/14/23 3:12 PM) Peripheral Pulse Rate [60-100 bpm] 87 bp m (10/14/23 7:16 PM) 94 bpm (10/14/23 3:12 PM) Respiratory Rate [14-20 br/min] 18 br/mi n (10/14/23 7:16 PM) 16 br/min (10/14/23 3:12 PM) Blood Pressure 135/63mmHg (10/14/23 7:16 PM) 126/66mmHg (10/14/23 3:12 PM) Social History Social History Type Response [...] [facility] nown Hospital Discharge Instructions Patient Education 10/14/2023 18:36:09 Ascites Ascites Ascites is a collection of too much fluid in the abdomen. Ascites can range from mild to severe. Ifascites is not treated, it can get worse. What are the causes? This condition may be caused by: ??? A liver condition called cirrhosis. This is the most common cause of ascites. ??? Long-term (chronic) or alcoholic hepatitis. ??? Infection or inflammation in the abdomen. ??? Cancer in the abdomen. ??? Heart failure. ??? Kidney disease. ??? Inflammation of the pancreas. ??? Clots in the veins of the liver. What are the signs or symptoms? Symptoms of this condition include: ??? A feeling of fullness in the abdomen. This is common. ??? An increase in the size of the abdomen or waist. ??? Swelling in the legs. ??? Swelling of the scrotum. ??? Difficulty breathing. ??? Pain in the abdomen. ??? Sudden weight gain. If the condition is mild, you may not have symptoms. How is this diagnosed? This condition is diagnosed based on your medical history and a physical exam. Your health care provider may order imaging tests, such as an ultrasound or CT scan of your abdomen. How is this treated? Treatment for this condition depends on the cause of the ascites. It may include: ??? Taking a pill to make you urinate. This is called a water pill (diuretic pill). ??? Strictly reducing your salt (sodium) intake. Salt can cause extra fluid to be kept (retained) in the body, and this makes ascites worse. ??? Having a procedure to remove fluid from your abdomen (paracentesis). ??? Having a procedure that connects two of the major veins within your liver and relieves pressureon your liver. This is called a TIPS procedure (transjugular intrahepatic portosystemic shunt procedure). ??? Placement of a drainage catheter (peritoneovenous shunt) to manage the extra fluid in the abdomen. Ascites may go away or improve when the condition that caused it is treated. Follow these instructions at home: Eating and drinking ??? Keep track of your weight. To do this, weigh yourself at the same time every day and write downyour weight. ??? Try not to eat salty (high-sodium) foods. ??? Follow any instructions that your health care provider gives you about how much to drink. ??? Keep track of how much you drink and any changes in how much or how often you urinate. General instructions ??? Report any changes in your health to your health care provider, especially if you develop new symptoms or your symptoms get worse. ??? Take icsy-fyr-lysngaw and prescription medicines only as told by your health care provider. ??? Keep all follow-up visits. This is important. Contact a health care provider if: ??? You gain more than 3 lb (1.36 kg) in 3 days. ??? Your waist size increases. ??? You have new swelling in your legs. ??? The swelling in your legs gets worse. Get help right away if: ??? You have a fever or chills. ??? You are confused. ??? You have new or worsening breathing trouble. ??? You have new or worsening pain in your abdomen. ??? You have new or worsening swelling in the scrotum. Summary ??? Ascites is a collection of too much fluid in the abdomen. ??? Ascites may be caused by various conditions, such as cirrhosis, hepatitis, cancer, or congestive heart failure. ??? Symptoms may include swelling of the abdomen and other areas due to extra fluid in the body. ??? Treatments may involve dietary changes, medicines, or procedures. This information is not intended to replace advice given to you by your health care provider. Make sure you discuss any questions you have with your health care provider. Document Revised: 02/10/2021 Document Reviewed: 02/10/2021 Elsevier Patient Education ?? 2022 [employer] Patient Care team information Care Team Personnel Name: RAMSES KATE MD Position: Community Physician Member Role: Primary Care Physician Address: Address: [address] [place] [address]- Care Team Related Persons Name: KIRSTY MOTT Address: [address] [facility], [phone]
--- OUTSIDE RECORDS SUMMARY | 2024-03-20 14:29 | XMS_ITS | Continuity of Care Document ---
Author Organization [facility] Address Unknown Care Team Providers Care Preflight Mechanic Name Role Phone RAMSES KATE Primary Care Physician Encounter Date(s): 03/29/22 - 03/29/[address] [address] Discharge Disposition: Home or Self Care Attending Physician: RAMSES KATE MD Admitting Physician: RAMSES KATE MD Allergies, Adverse Reactions, Alerts Substance Reaction Severity Status amoxicillin Rash Active Bactrim Rash Active sulfa drugs Rash Active Immunizations Given and Recorded Vaccine [...] List Name Date .Estimated Glomerular Filtration Rate .Manual Diff 03/29/22 .Morphology 03/29/22 CBC Auto Diff reflex Manual Diff (CBC W/ AUTO DIFF) 03/29/22 Comprehensive Metabolic Panel (COMPREHEN SIVE METABOLIC PANEL) 03/29/22 Lipid Panel (LIPID PROFILE) 03/29/22 Thyroid [place] (TSH CASCADE) 03/29/22 Most recent to oldest [Reference Range]: 1 RBC Morphology Abnormal *NA* (03/29/22 10:30 AM) Macrocyte 1+ *NA* (03/29/22 10:30 AM) Platelet Estimate Decreased *NA* (03/29/22 10:30 AM) AGAP 8 *NA* (03/29/22 10:30 AM) LDL 142 mg/dL *NA* (03/29/22 10:30 AM) Ldl/Hdl 2.2 mg/dL *NA* (03/29/22 10:30 AM) Chol/Trig 1.40 mg/dL *NA* (03/29/22 10:30 AM) VLDL 34 mg/dL *NA* (03/29/22 10:30 AM) A/G Ratio 1.0 *NA* (03/29/22 10:30 AM) BUN/Creat Ratio 27 *NA* (03/29/22 10:30 AM) RBC [4.00-5.20 x10(6)/mcL] 3.87 x10(6)/m cL *LOW* (03/29/22 10:30 AM) RDW [11.5-14.5 %] 13.9 % (03/29/22 10:30 AM) Neutrophil [31-76 %] 49 % (03/29/22 10:30 AM) Sodium Level [136-145 mmol/L] 142 mmol/L (03/29/22 10:30 AM) Total Protein [6.4-8.2 gm/dL] 6.7 gm/dL (03/29/22 10:30 AM) Trig 170 mg/dL *NA* (03/29/22 10:30 AM) TSH [0.360-3.740 mcIU/mL] 1.290 mcIU/mL (03/29/22 10:30 AM) AST [15-37 IU/L] 60 IU/L *HI* (03/29/22 10:30 AM) Basophil [0-2 %] 1 % (03/29/22 10:30 AM) Bili Total [0.20-1.00 mg/dL] 0.58 mg/dL (03/29/22 10:30 AM) Chol 240 mg/dL *NA* (03/29/22 10:30 AM) CO2 [21-32 mmol/L] 29 mmol/L (03/29/22 10:30 AM) Eosinophil [1-4 %] 2 % (03/29/22 10:30 AM) Atypical Lymph 21 % *NA* (03/29/22 10:30 AM) Albumin Level [3.4-5.0 gm/dL] 3.4 gm/dL (03/29/22 10:30 AM) Alk Phos [48-129 unit/L] 91 unit/L (03/29/22 10:30 AM) ALT [13-61 IU/L] 65 IU/L *HI* (03/29/22 10:30 AM) Hct [36.0-46.0 %] 43.3 % (03/29/22 10:30 AM) HDL 64 mg/dL *NA* (03/29/22 10:30 AM) Hgb [12.0-15.0 gm/dL] 14.5 gm/dL (03/29/22 10:30 AM) Lymphocyte [24-44 %] 22 % *LOW* (03/29/22 10:30 AM) MCH [26.0-34.0 pg] 37.5 pg *HI* (03/29/22 10:30 AM) MCHC [31.0-37.0 gm/dL] 33.5 gm/dL (03/29/22 10:30 AM) MCV [80-100 fL] 112 fL *HI* (03/29/22 10:30 AM) Monocyte [2-11 %] 5 % (03/29/22 10:30 AM) MPV [9.2-12.7 fL] 10.5 fL (03/29/22 10:30 AM) Glucose Level [74-106 mg/dL] 82 mg/dL (03/29/22 10:30 AM) Platelet [150-350 x10(3)/mcL] 203 x10(3) /mcL (03/29/22 10:30 AM) Potassium Level [3.5-5.1 mmol/L] 4.0 mmo l/L (03/29/22 10:30 AM) WBC [4.5-11.0 x10(3)/mcL] 4.8 x10(3)/mcL (03/29/22 10:30 AM) BUN [7-18 mg/dL] 19 mg/dL *HI* (03/29/22 10:30 AM) Calcium Level [8.5-10.1 mg/dL] 8.9 mg/dL (03/29/22 10:30 AM) Chloride [98-107 mmol/L] 109 mmol/L *HI* (03/29/22 10:30 AM) eGFR AA >60 mL/min/1.73 m2 *NA* (03/29/22 10:30 AM) eGFR EASTON >60 mL/min/1.73 m2 *NA* (03/29/22 10:30 AM) NRBC % [0.0-0.2 %] 0.0 % (03/29/22 10:30 AM) Osmol Calculated 285 mOsm/kg *NA* (03/29/22 10:30 AM) Creatinine [0.6-1.3 mg/dL] 0.7 mg/dL (03/29/22 10:30 AM) Abs Baso Man 0.0 x10(3)/mcL *NA* (03/29/22 10:30 AM) Abs Eos Man 0.1 x10(3)/mcL *NA* (03/29/22 10:30 AM) Abs Lymph Man [1.1-4.8 x10(3)/mcL] 2.1 x 10(3)/mcL (03/29/22 10:30 AM) Abs [place] Man 0.2 x10(3)/mcL *NA* (03/29/22 10:30 AM) Abs Seg Man [1.5-7.8 x10(3)/mcL] 2.4 x10 (3)/mcL (03/29/22 10:30 AM) Social History Social History Type Response [...] KATE MD Position: Community Physician Med Service: [facility] Member Role: Primary Care Physician Address: Address: [address] [place] [address]- Care Team Related Persons Name: KIRSTY MOTT Address: [address] [facility], [id number]
--- OUTSIDE RECORDS SUMMARY | 2024-03-20 14:29 | XMS_ITS | Continuity of Care Document ---
Author Organization [facility] Address Unknown Care Team Providers Care Audit Spec Name Role Phone RAMSES KATE Primary Care Physician Encounter Date(s): 04/22/22 - 04/22/[address] [address] Discharge Disposition: Home or Self Care Attending Physician: WENCESLAO POSADAS, Admitting Physician: WENCESLAO POSADAS, Allergies, Adverse Reactions, Alerts Substance Reaction Severity [...] List Name Date .Estimated Glomerular Filtration Rate Auto Differential 04/22/22 CBC Auto Diff reflex Manual Diff 2 Comprehensive Metabolic Panel 04/22/22 PT/INR 04/22/22 Most recent to oldest [Reference Range]: 1 AGAP 10 *NA* (04/22/22 1:20 PM) INR 1.0 *NA* (04/22/22 1:20 PM) A/G Ratio 1.0 *NA* (04/22/22 1:20 PM) BUN/Creat Ratio 24 *NA* (04/22/22 1:20 PM) PT [9.4-12.5 second(s)] 11.4 second(s) (04/22/22 1:20 PM) RBC [4.00-5.20 x10(6)/mcL] 3.99 x10(6)/m cL *LOW* (04/22/22 1:20 PM) RDW [11.5-14.5 %] 12.8 % (04/22/22 1: PM) Sodium Level [136-145 mmol/L] 140 mmol/L (04/22/22: PM) Total Protein [6.4-8.2 gm/dL] 7.2 gm/dL (04/22/22:20 PM) AST [15-37 IU/L] 43 IU/L *HI* (04/22/22 PM) Bili Total [0.20-1.00 mg/dL] 0.40 mg/dL (04/22/22: PM) CO2 [21-32 mmol/L] 25 mmol/L (04/22/22 PM) Albumin Level [3.4-5.0 gm/dL] 3.6 gm/dL (04/22/22: PM) Alk Phos [48-129 unit/L] 120 unit/L (04/22/22: PM) ALT [13-61 IU/L] 40 IU/L (04/22/22: PM) Hct [36.0-46.0 %] 43.3 % (04/22/22: PM) Hgb [12.0-15.0 gm/dL] 14.1 gm/dL (04/22/22: PM) MCH [26.0-34.0 pg] 35.3 pg *HI* (04/22/22: PM) MCHC [31.0-37.0 gm/dL] 32.6 gm/dL (04/22/22: PM) MCV [80-100 fL] 109 fL *HI* (04/22/22: PM) MPV [9.2-12.7 fL] 10.2 fL (04/22/22: PM) Glucose Level [74-106 mg/dL] 129 mg/dL *HI* (11/10/22 1:20 PM) Platelet [150-350 x10(3)/mcL] 275 x10(3) /mcL (04/22/22 1:20 PM) Potassium Level [3.5-5.1 mmol/L] 3.7 mmo l/L (04/22/22 1:20 PM) WBC [4.5-11.0 x10(3)/mcL] 5.6 x10(3)/mcL (04/22/22 1:20 PM) BUN [7-18 mg/dL] 19 mg/dL *HI* (04/22/22 1:20 PM) Calcium Level [8.5-10.1 mg/dL] 10.0 mg/d L (04/22/22 1:20 PM) Chloride [98-107 mmol/L] 109 mmol/L *HI* (04/22/22 1:20 PM) eGFR AA >60 mL/min/1.73 m2 *NA* (04/22/22 1:20 PM) eGFR EASTON >60 mL/min/1.73 m2 *NA* (04/22/22 1:20 PM) Neutrophil Absolute [1.50-7.80 x10(3)/mc L] 3.54 x10(3)/mcL (04/22/22 1:20 PM) Lymphocyte Absolute [1.10-4.80 x10(3)/mc L] 1.22 x10(3)/mcL (04/22/22 1:20 PM) Monocyte Absolute 0.60 x10(3)/mcL *NA* (04/22/22 1:20 PM) Eosinophil Absolute 0.16 x10(3)/mcL *NA* (04/22/22 1:20 PM) Basophil Absolute 0.04 x10(3)/mcL *NA* (04/22/22 1:20 PM) Imm Gran Absolute 0.01 /mcL *NA* (04/22/22 1:20 PM) NRBC % [0.0-0.2 %] 0.0 % (04/22/22 1:20 PM) Osmol Calculated 283 mOsm/kg *NA* (04/22/22 1:20 PM) Eosinophil Auto [1.0-4.0 %] 2.9 % (04/22/22 1:20 PM) Immature Granulocyte Auto 0 % *NA* (04/22/22 1:20 PM) Lymphocyte Auto [24.0-44.0 %] 21.9 % *LOW* (04/22/22 1:20 PM) Monocyte Auto [2.0-11.0 %] 10.8 % (04/22/22 1:20 PM) Neutrophil Auto [31.0-76.0 %] 63.5 % (04/22/22 1:20 PM) Basophil Auto [0.0-2.0 %] 0.7 % (04/22/22 1:20 PM) Creatinine [0.6-1.3 mg/dL] 0.8 mg/dL (04/22/22 1:20 PM) Social History Social History Type Response [...] Member Role: Primary Care Physician Address: Address: [address] [place] [address]- [place] Care Team Related Persons Name: KIRSTY MOTT Address: Home [address] [facility], [id number]
--- OUTSIDE RECORDS SUMMARY | 2024-03-20 14:29 | XMS_ITS | Continuity of Care Document ---
Author Organization [facility] Address Unknown Care Team Providers Care Dbas Name Role Phone RAMSES KATE Primary Care Physician Encounter Date(s): 05/03/23 - 05/03/[address] [address] Discharge Disposition: Home or Self Care [...] Active Asthma without status asthmaticus Confirmed Active COVID-19 1 Confirmed Active Genital herpes simplex Confirmed Active Lumbar spondylosis Confirmed Active Breast cancer Confirmed Active Pure hypercholesterolemia Confirmed Active 1Jan 2020 Procedures Procedure Date Related Diagnosis Body Site Status right 1st MTP fusion & IM sc rew 5th metatarsal 05/27/21 Completed COLONOSCOPY 12/06/11 Completed lamine. carpel tunnel Comple joann Lipoma removal, back Comp leted Right breast reconstruction [facility] Completed rt mastectomy Completed Spinal decompression and fus ion L3-S1 [facility] Completed Results Laboratory List Name Date Lipid Panel (LIPID PROFILE) 05/03/23 Thyroid [place] (TSH CASCADE) 05/03/23 Most recent to oldest [Reference Range]: 1 LDL 109 mg/dL 1 *NA* (05/03/23 11:32 AM) Ldl/Hdl 1.8 mg/dL *NA* (05/03/23 11:32 AM) Chol/Trig 1.70 mg/dL *NA* (05/03/23 11:32 AM) VLDL 23 mg/dL *NA* (05/03/23 11:32 AM) Trig 116 mg/dL 2 *NA* (05/03/23 11:32 AM) TSH [0.360-3.740 mcIU/mL] 0.715 mcIU/mL (05/03/23 11:32 AM) Chol 194 mg/dL *NA* (05/03/23 11:32 AM) HDL 62 mg/dL 3 *NA* (05/03/23 11:32 AM) 1Interpretive Data: The National Cholesterol Education Program Adult Treatment Panel III (NCEP-ATP III) provides the following classifications of LDL-D concentrations: Optimal <100 mg/dL Near Optimal 100 - 129 mg/dL Borderline High 130 - 159 mg/dL High 160 - 189 mg/dL Very High >/= 190 mg/dL 2Interpretive Data: The National Cholesterol Education Program Adult Treatment Panel III (NCEP-ATPIII) provides the following classifications of triglycerides concentrations: Normal <150 mg/dL Borderline High 150 - 199 mg/dL High 200 - 499 mg/dL Very High >/= 500 mg/dL If Triglycerides > 400, Calculated LDL cholesterol and LDL/HDL Ratio results are invalid. A measured LDL will be performed; results to follow. 3Interpretive Data: The National Cholesterol Education Program Adult Treat Panel III (NCEP-ATP III) provides the following classifications on HDL-C concentrations: HDL Cholesterol < 40 mg/dL Low HDL Cholesterol HDL Cholesterol >/= 60 mg/dL High HDL Cholesterol Social History Social History Type Response Smoking [...] Member Role: Primary Care Physician Address: Address: [address] [place] [address]- Care Team Related Persons Name: KIRSTY MOTT Address: Home [address] [facility], [id number]
--- OUTSIDE RECORDS SUMMARY | 2024-03-20 14:29 | XMS_ITS | Continuity of Care Document ---
Author Organization [facility] Address [address] [place] [id number] Care Team Providers Care Merchandising Professor Name Role Phone RAMSES KATE Primary Care Physician [phone] Encounter Date(s): 06/23/21 - 06/23/21 [facility] [address] [place] [address] [place] [phone] Discharge Disposition: Home or Self Care Attending Physician: ALISSA PORTER MD Admitting Physician: ALISSA PORTER MD Allergies, Adverse Reactions, Alerts Substance Reaction Severity Status amoxicillin Rash Active sulfa drugs Rash Active Bactrim Rash Active Assessment and Plan Future Appointments Appointment Date:07/14/2021 10:20:00 AM Scheduled Provider:ALISSA PORTER MD Location:[facility] - Appointment Type:[facility] Office Visit Post Op [...] Description Quantity MRI Company Model SCREW LORA [id number] PRT THRD 1 SYNTH ES [facility] Unknown URI:No Information Assigning Authority: FDA SCREW JORGE [id number] SLFTP W/ T8 STARDRIVE RECESS 1 SYNTHES [facility] Unknown URI:No Information Assigning Authority: FDA SCREW JORGE [id number] SLFTP W/ T8 STARDRIVE RECESS 1 SYNTHES [facility] Unknown URI:No Information Assigning Authority: FDA
--- OUTSIDE RECORDS SUMMARY | 2024-03-20 14:29 | XMS_ITS | Continuity of Care Document ---
Author Organization [facility] Address Unknown Care Team Providers Care Acoustic Sensor Operator Name Role Phone RAMSES KATE Primary Care Physician Encounter Date(s): 05/27/21 - 05/27/[address] [address] Encounter Diagnosis Chronic foot pain(Discharge Diagnosis) - 05/25/21 Discharge Disposition: Home or Self Care Attending Physician: ALISSA GEE MD Admitting Physician: ALISSA GEE MD Allergies, Adverse Reactions, Alerts Substance Reaction Severity Status amoxicillin Rash Active sulfa drugs Rash Active Bactrim Rash Active Assessment and Plan Future Appointments Appointment Date:06/08/2021 02:40:00 PM Scheduled Provider:ALISSA GEE MD Location:[facility] - Appointment Type:[facility] Office Visit Post Op or Procedure Functional Status 05/21/21 ADLs Independent Immunizations Given and Recorded Vaccine [...] Start Date: 05/21/21 Status: Ordered Mental Status 05/27/21 Level of Consciousness Lethargic 05/27/21 Orientation Assessment Oriented x 4 Problem List Condition Effective Dates Status Health [...] 2 3 Temperature Temporal Artery [36.3-37.8 DegC] 36.7 DegC (05/27/21 9:05 AM) 36.5 DegC (05/27/21 6:21 AM) Peripheral Pulse Rate [60-100 bpm] 76 bpm (05/27/21 10:00 AM) 78 bpm (05/27/21 9:45 AM) 78 bpm (05/27/21 9:30 AM) Heart Rate Monitored [60-100 bpm] 78 bpm (05/27/21 10:00 AM) 81 bpm (05/27/21 9:45 AM) 79 bpm (05/27/21 9:30 AM) Respiratory Rate [14-20 br/min] 11 br/min *LOW* (05/27/21 10:00 AM) 15 br/min (05/27/21 9:45 AM) 10 br/min *LOW* (05/27/21 9:30 AM) Blood Pressure [90-140/60-90 mmHg] 141/68mmHg *HI* (05/27/21 10:00 AM) 151/66mmHg *HI* (05/27/21 9:45 AM) 149/74mmHg *HI* (05/27/21 9:30 AM) Mean Arterial Pressure, Cuff 87 mmHg (05/27/21 10:00 AM) 84 mmHg (05/27/21 9:45 AM) 93 mmHg (05/27/21 9:30 AM) Blood Pressure 142/73mmHg (05/27/21 6:21 AM) Mean Arterial Presure, Manual 96 mmHg (05/27/21 6:21 AM) Social History Social History Type Response Smoking Status Never smoker Sex Female Medical Equipment Implanted Date:05/27/21Target Site:Unknown Description Quantity MRI Company Model SCREW LORA [id number] PRT THRD 1 SYNTH ES [place] Unknown URI:No Information Assigning Authority: FDA SCREW JORGE [id number] SLFTP W/ T8 STARDRIVE RECESS 1 SYNTHES [place] Unknown URI:No Information Assigning Authority: FDA SCREW JORGE [id number] SLFTP W/ T8 STARDRIVE RECESS 1 SYNTHES [place] Unknown URI:No Information Assigning Authority: [facility] Hospital Discharge Instructions Patient Education 05/27/2021 09:47:10 Dr. Gee Orthopedic Post-Operative [facility] ([facility] Home Care Instructions Dr. Gee Orthopedic Post-Operative Things to report to your doctor: ??? Change in color (paleness or blue/hanks), temperature (coolness) or sensation (numbness or tingling) in your operative extremity. ??? A decrease in your ability to move your operative extremity, that is not associated with nerve block. ??? Increased swelling and/or pain that does [...] if your bandage becomessoaked with blood, call [phone] or go to the nearest Emergency Room. Diet: ??? Begin your usual diet. ??? Pain medications may cause constipation. Add more fiber to your diet to help your bowels stay regular. Foods high in fiber are grains, bran, beans, fresh fruits, and vegetables. ??? You may take an [id number] stool softener, if needed. ??? Drink 8 glasses of healthy liquids every day. Medication: ??? Aspirin 81mg o Take one (1) tablet by mouth every day for one (1) month. o Start tomorrow. Activity: ??? Weight bearing: ??? You may resume driving when your doctor says it is safe to do so. Treatments: ??? Apply ice to your extremity [...] Protect dressing from getting wet. EMR 09/14/18 05/27/2021 09:47:10 General Anesthesia [facility] ([facility]) Home Care Instructions General Anesthesia Things to report to your doctor: ??? Persistent vomiting. Diet: Since nausea and vomiting can occur after [...] Do not drink alcohol for the next 48 hours. ??? Do not smoke for 24 hours. ??? Use lozenges if you have a sore throat. Activity: ??? You might feel lightheaded or dizzy. Rest and begin your usual activity slowly. ??? Do not drive or run machinery for at least 24 hours, or while you are taking narcotic pain medication. ??? Do not stay alone. A responsible person should stay overnight with you. ??? You should not plan to make important decisions, related to your job, money, etc., or sign legal documents for the next 24 hours. Other: You may have a sore throat from the breathing tube that is sometimes used during anesthesia.You may feel achy. In a few days, you should feel better.
--- OUTSIDE RECORDS SUMMARY | 2024-03-20 14:29 | XMS_ITS | Continuity of Care Document ---
Author Organization [facility] Address Unknown Care Team Providers Care Drying Oven Attendant Name Role Phone RAMSES KATE Primary Care Physician Encounter Date(s): 12/08/21 - 12/08/21 [facility] [address] [place], [place] [address] Discharge Disposition: Home or Self Care Allergies, [...] KATE MD Position: Community Physician Med Service: [facility] Role: Primary Care Physician Address: Address: [address] [place], [place] [address] [place] [address] Care Team Related Persons Name: KIRSTY MOTT Address: [address] [facility], [phone]
--- OUTSIDE RECORDS SUMMARY | 2024-03-20 14:29 | XMS_ITS | Continuity of Care Document ---
Author Organization [facility] Address Unknown Care Team Providers Care Sight Effects Specialist Name Role Phone RAMSES KATE Primary Care Physician [phone] Encounter Date(s): 12/23/23 - 12/23/23 [facility] [address] [place] [address] Discharge Disposition: Home or Self Care Attending Physician: LAISSA PORTER MD Admitting Physician: ALISSA PORTER MD [...] Member Role: Primary Care Physician Address: Address: [address] [place] [address]- Care Team Related Persons Name: KIRSTY MOTT Address: Home [address] [facility], [phone]
--- OUTSIDE RECORDS SUMMARY | 2024-03-20 14:29 | XMS_ITS | Continuity of Care Document ---
Author Organization [facility] Address [address] [place] [address] Care Team Providers Care Core Drilling Supervisor Name Role Phone RAMSES KATE Primary Care Physician [phone] Encounter Date(s): 02/11/21 - 02/11/21 [facility] [address] [place], [place] [phone] Discharge Disposition: Home or Self Care Attending Physician: ALISSA PORTER MD Admitting Physician: ALISSA PORTER MD Allergies, Adverse Reactions, Alerts Substance Reaction Severity Status amoxicillin Active sulfa drugs Active Bactrim Active Assessment and Plan Future Appointments Appointment Date:04/13/2021 09:30:00 AM Scheduled Provider:ALISSA PORTER MD Location:[facility] - Appointment Type:[facility] Office Visit Follow Up Medications Ambien 5 mg, Oral, qHS, PRN [...]
--- OUTSIDE RECORDS SUMMARY | 2024-03-20 14:29 | XMS_ITS | Continuity of Care Document ---
Author Organization [facility] Address Unknown Care Team Providers Care Bottle Sorter Name Role Phone RAMSES KATE Primary Care Physician Encounter Date(s): 06/01/23 - 06/01/23 [facility] [address] [place] [address] [phone] Discharge Disposition: Home or Self Care Attending Physician: ALISSA PORTER MD Admitting Physician: ALISSA PORTER MD Allergies, Adverse Reactions, Alerts Substance Criticality Severity Reaction Reaction Severity Status amoxicillin Rash Active sulfa drugs Rash Active Bactrim Rash Active Assessment and Plan Future Appointments Appointment Date:06/22/2023 01:30:00 PM Scheduled Provider:ALISSA PORTER MD Location:[facility] - Appointment Type:[facility] Office Visit Follow Up Offsite Immunizations Given and Recorded Vaccine Date Status [...] Refill(s) Start Date: 05/21/21 Status: Ordered omeprazole Oral, Daily, 0 Refill(s) Start Date: 06/01/23 Status: Ordered omeprazole 20 mg oral delayed [...] Member Role: Primary Care Physician Address: Address: [place] [place] [address]- Care Team Related Persons Name: KIRSTY MOTT Address: [address] [facility], [id number]
--- OUTSIDE RECORDS SUMMARY | 2024-03-20 14:29 | XMS_ITS | Continuity of Care Document ---
Author Organization [facility] Address Unknown Care Team Providers Care District Adviser Name Role Phone RAMSES KATE Primary Care Physician Encounter Date(s): 07/01/21 - 07/01/[address] [address] Discharge Disposition: Home or Self Care Attending Physician: DENNY BEAR, Admitting Physician: DENNY BEAR, Allergies, Adverse Reactions, Alerts Substance Reaction Severity Status amoxicillin Rash Active sulfa drugs Rash Active Bactrim Rash Active Assessment and Plan Future Appointments Appointment Date:07/14/2021 10:20:00 AM Scheduled Provider:ALISSA PORTER MD Location:[facility] - Appointment Type:[facility] Office Visit Post Op or Procedure Diagnostic Tests Pending * [address] 07/01/21 Immunizations Given and Recorded Vaccine Date Status [...] [facility] Completed Results Laboratory List Name Date .Morphology 07/01/21 Auto Differential 07/01/21 CBC Auto Diff reflex Manual Diff 07/01/21 Most recent to oldest [Reference Range]: 1 RBC Morphology Abnormal *NA* (07/01/21 2:20 PM) Anisocyte 1+ *NA* (07/01/21 2:20 PM) Macrocyte 1+ *NA* (07/01/21 2:20 PM) Platelet Estimate Adequate *NA* (07/01/21 2:20 PM) RBC [4.00-5.20 x10(6)/mcL] 3.88 x10(6)/m cL *LOW* (07/01/21 2:20 PM) RDW [11.5-14.5 %] 13.3 % (07/01/21 2:20 PM) Hct [36.0-46.0 %] 40.4 % (07/01/21 2:20 PM) Hgb [12.0-15.0 gm/dL] 13.2 gm/dL (07/01/21 2:20 PM) MCH [26.0-34.0 pg] 34.0 pg (07/01/21 2:20 PM) MCHC [31.0-37.0 gm/dL] 32.7 gm/dL (07/01/21 2:20 PM) MCV [80-100 fL] 104 fL *HI* (07/01/21 2:20 PM) MPV [9.2-12.7 fL] 9.9 fL (07/01/21 2:20 PM) Platelet [150-350 x10(3)/mcL] 157 x10(3) /mcL (07/01/21 2:20 PM) WBC [4.5-11.0 x10(3)/mcL] 4.1 x10(3)/mcL *LOW* (07/01/21 2:20 PM) Neutrophil Absolute [1.50-7.80 x10(3)/mc L] 1.48 x10(3)/mcL *LOW* (07/01/21 2:20 PM) Lymphocyte Absolute [1.10-4.80 x10(3)/mc L] 2.24 x10(3)/mcL (07/01/21 2:20 PM) Monocyte Absolute 0.29 x10(3)/mcL *NA* (07/01/21 2:20 PM) Eosinophil Absolute 0.07 x10(3)/mcL *NA* (07/01/21 2:20 PM) Basophil Absolute 0.02 x10(3)/mcL *NA* (07/01/21 2:20 PM) Imm Gran Absolute 0.01 /mcL *NA* (07/01/21 2:20 PM) NRBC % [0.0-0.2 %] 0.0 % (07/01/21 2:20 PM) Eosinophil Auto [1.0-4.0 %] 1.7 % (07/01/21 2:20 PM) Immature Granulocyte Auto 0 % *NA* (07/01/21 2:20 PM) Lymphocyte Auto [24.0-44.0 %] 54.5 % *HI* (07/01/21 2:20 PM) Monocyte Auto [2.0-11.0 %] 7.1 % (07/01/21 2:20 PM) Neutrophil Auto [31.0-76.0 %] 36.0 % (07/01/21 2:20 PM) Basophil Auto [0.0-2.0 %] 0.5 % (07/01/21 2:20 PM) Social History Social History Type Response Smoking Status Never smoker Sex Female Medical Equipment Implanted Date:05/27/21Target Site:Unknown Description Quantity MRI Company Model SCREW LORA [id number] PRT THRD 1 SYNTH ES [place] Unknown URI:No Information Assigning Authority: FDA SCREW JORGE [id number] SLFTP W/ T8 STARDRIVE RECESS 1 SYNTHES [place] Unknown URI:No Information Assigning Authority: FDA SCREW JORGE [id number] SLFTP W/ T8 STARDRIVE RECESS 1 [employer] [place] Unknown URI:No Information Assigning Authority: FDA
--- OUTSIDE RECORDS SUMMARY | 2024-03-20 14:29 | XMS_ITS | Continuity of Care Document ---
Author Organization [facility] Address Unknown Care Team Providers Care Central Office Operator Name Role Phone RAMSES KATE Primary Care Physician Encounter Date(s): 09/26/23 - 09/26/[address] [address] Discharge Disposition: Home or Self Care Attending Physician: DENNY BEAR, Admitting Physician: DENNY BEAR, Allergies, Adverse Reactions, Alerts Substance Criticality Severity Reaction Reaction Severity Status amoxicillin Rash Active sulfa drugs Rash Active Bactrim Rash Active Assessment and Plan Future Appointments Appointment Date:10/03/2023 10:10:00 AM Scheduled Provider:ALISSA PORTER MD Location:[facility] - Appointment Type:[facility] Office Visit Follow Up Diagnostic Tests Pending * [address] 09/26/23 Immunizations Given and Recorded Vaccine Date Status [...] Date .Estimated Glomerular Filtration Rate .Manual Diff 09/26/23 .Morphology 09/26/23 CBC Auto Diff reflex Manual Diff 09/26/23 Comprehensive Metabolic Panel 09/26/23 Most recent to oldest [Reference Range]: 1 RBC Morphology Abnormal *NA* (09/26/23 11:50 AM) Poikilocytosis 1+ *NA* (09/26/23 11:50 AM) Macrocyte 2+ *NA* (09/26/23 11:50 AM) Platelet Estimate Adequate *NA* (09/26/23 11:50 AM) AGAP 12 *NA* (09/26/23 11:50 AM) A/G Ratio 0.7 *NA* (09/26/23 11:50 AM) BUN/Creat Ratio 24 *NA* (09/26/23 11:50 AM) RBC [4.00-5.20 x10(6)/mcL] 3.44 x10(6)/m cL *LOW* (09/26/23 11:50 AM) RDW [11.5-14.5 %] 15.2 % *HI* (09/26/23 11:50 AM) Neutrophil [31-76 %] 92 % *HI* (09/26/23 11:50 AM) Sodium Level [136-145 mmol/L] 145 mmol/L (09/26/23 11:50 AM) Total Protein [6.4-8.2 gm/dL] 6.8 gm/dL (09/26/23 11:50 AM) AST [15-37 IU/L] 71 IU/L 1 *HI* (09/26/23 11:50 AM) Basophil [0-2 %] 1 % (09/26/23 11:50 AM) Bili Total [0.20-1.00 mg/dL] 0.84 mg/dL (09/26/23 11:50 AM) CO2 [21-32 mmol/L] 24 mmol/L (09/26/23 11:50 AM) Eosinophil [0.0-4.0] 0.0 (09/26/23 11:50 AM) Albumin Level [3.4-5.0 gm/dL] 2.9 gm/dL *LOW* (09/26/23 1150 AM) Alk Phos [48-129 unit/L] 331 unit/L *HI* (09/26/2350 AM) ALT [13-61 IU/L] 44 IU/L 2 (09/26/23 11:50 AM) Hct [36.0-46.0 %] 36.7 % (09/26/2350 AM) Hgb [12.0-15.0 gm/dL] 11.1 gm/dL *LOW* (09/26/23 1150 AM) Lymphocyte [24-44 %] 5 % *LOW* (09/26/2350 AM) MCH [26.0-34.0 pg] 32.3 pg (09/26/2350 AM) MCHC [31.0-37.0 gm/dL] 30.2 gm/dL *LOW* (09/26/23 11:50 AM) MCV [80-100 fL] 107 fL *HI* (09/26/23 1150 AM) Monocyte [2-11 %] 2 % (09/26/23 11:50 AM) MPV [9.2-12.7 fL] 11.0 fL (09/26/23 11:50 AM) Glucose Level [74-106 mg/dL] 122 mg/dL 3 *HI* (09/26/23 11:50 AM) Platelet [150-350 x10(3)/mcL] 209 x10(3) /mcL (09/26/23 11:50 AM) Potassium Level [3.5-5.1 mmol/L] 3.3 mmo l/L *LOW* (09/26/23 11:50 AM) WBC [4.5-11.0 x10(3)/mcL] 19.6 x10(3)/mc L *HI* (09/26/23 11:50 AM) BUN [7-18 mg/dL] 17 mg/dL (09/26/23 11:50 AM) Calcium Level [8.5-10.1 mg/dL] 9.0 mg/dL (09/26/23 11:50 AM) Chloride [98-107 mmol/L] 112 mmol/L *HI* (09/26/23 11:50 AM) eGFR AA >60 mL/min/1.73 m2 4 *NA* (09/26/23 11:50 AM) eGFR EASTON >60 mL/min/1.73 m2 5 *NA* (09/26/23 11:50 AM) NRBC % [0.0-0.2 %] 0.0 % (09/26/23 11:50 AM) Osmol Calculated 292 mOsm/kg *NA* (09/26/23 11:50 AM) Creatinine [0.6-1.3 mg/dL] 0.7 mg/dL (09/26/23 11:50 AM) Abs Baso Man [0.0-0.1 x10(3)/mcL] 0.2 x1 0(3)/mcL *HI* (09/26/23 11:50 AM) Abs Eos Man [0.0-0.3 x10(3)/mcL] 0.0 x10 (3)/mcL (09/26/23 11:50 AM) Abs Lymph Man [1.1-4.8 x10(3)/mcL] 1.0 x 10(3)/mcL *LOW* (09/26/23 11:50 AM) Abs Cheshire Man [0.0-0.8 x10(3)/mcL] 0.4 x1 0(3)/mcL (09/26/23 11:50 AM) Abs Seg Man [1.5-7.8 x10(3)/mcL] 18.0 x1 0(3)/mcL *HI* (09/26/23 11:50 AM) 1Interpretive Data: Falsely decreased results of up [...] or for patients with unusual dietary intake. Social History Social History Type Response Smoking [...] Member Role: Primary Care Physician Address: Address: [place] [place] [address]- Care Team Related Persons Name: PANTERA KIRSTY Address: Home [address] [facility], [phone]
--- OUTSIDE RECORDS SUMMARY | 2024-03-20 14:29 | XMS_ITS | Continuity of Care Document ---
Author Organization [facility] Address [address] [place] [address] Care Team Providers Care Diving Coach Name Role Phone RAMSES KATE Primary Care Physician [phone] Encounter Date(s): 06/08/21 - 06/08/[address] [facility] [address] [place] [address] [place] [phone] Discharge Disposition: Home or Self Care Attending Physician: ALISSA PORTER MD Admitting Physician: ALISSA PORTER MD Allergies, Adverse Reactions, Alerts Substance Reaction Severity Status amoxicillin Rash Active sulfa drugs Rash Active Bactrim Rash Active Assessment and Plan Future Appointments Appointment Date:06/23/2021 11:00:00 AM Scheduled Provider:ALISSA PORTER MD Location:[facility] - Appointment Type:[facility] Office Visit Post [...] Description Quantity MRI [employer] Model SCREW LORA [id number] PRT THRD 1 SYNTH ES [place] Unknown URI:No Information Assigning Authority: FDA SCREW JORGE [id number] SLFTP W/ T8 STARDRIVE RECESS 1 SYNTHES [facility] Unknown URI:No Information Assigning Authority: FDA SCREW JORGE [id number] SLFTP W/ T8 STARDRIVE RECESS 1 SYNTHES [facility] Unknown URI:No Information Assigning Authority: FDA
--- OUTSIDE RECORDS SUMMARY | 2024-03-20 14:29 | XMS_ITS | Continuity of Care Document ---
Author Organization [facility] Address Unknown Care Team Providers Care Correction Worker Name Role Phone RAMSES KATE Primary Care Physician Encounter Date(s): 02/20/21 - 02/20/21 [facility] [address] [place], [place] [address] Discharge Disposition: Home or Self Care [...] Scheduled Provider: Location:OR Appointment Type:Surgery - OR Medications Ambien 5 mg, Oral, qHS, PRN [...] mastectomy Completed Results Laboratory List Name Date .Estimated Glomerular Filtration Rate 04/02 Auto Differential 02/20/21 CBC Auto Diff reflex Manual Diff (CBC W/ AUTO DIFF) 02/20/21 Comprehensive Metabolic Panel (COMPREHEN SIVE METABOLIC PANEL) 02/20/21 Lipid Panel (LIPID PROFILE) 02/20/21 Thyroid Baca (TSH CASCADE) 02/20/21 Most recent to oldest [Reference Range]: 1 AGAP 5 *NA* (02/20/21 10:02 AM) LDL 162 mg/dL *NA* (02/20/21 10:02 AM) Ldl/Hdl 2.6 mg/dL *NA* (02/20/21 10:02 AM) Chol/Trig 1.50 mg/dL *NA* (02/20/21 10:02 AM) VLDL 35 mg/dL *NA* (02/20/21 10:02 AM) A/G Ratio 1.1 *NA* (02/20/21 10:02 AM) BUN/Creat Ratio 24 *NA* (02/20/21 10:02 AM) RBC [4.00-5.20 x10(6)/mcL] 4.30 x10(6)/m cL (02/20/21 10:02 AM) RDW [11.5-14.5 %] 12.3 % (02/20/21: AM) Sodium Level [136-145 mmol/L] 141 mmol/L (02/20/21 AM) Total Protein [6.4-8.2 gm/dL] 7.0 gm/dL (02/20/21 AM) Trig 173 mg/dL *NA* (02/20/21 AM) TSH [0.360-3.740 mcIU/mL] 1.360 mcIU/mL (02/20/21 AM) AST [15-37 IU/L] 20 IU/L (02/20/21 AM) Bili Total [0.20-1.00 mg/dL] 0.48 mg/dL (02/20/21 AM) Chol 259 mg/dL *NA* (02/20/21 AM) CO2 [21-32 mmol/L] 31 mmol/L (02/20/21 AM) Albumin Level [3.4-5.0 gm/dL] 3.7 gm/dL (02/20/21 AM) Alk Phos [48-129 unit/L] 82 unit/L (02/20/21 AM) ALT [13-61 IU/L] 26 IU/L (02/20/21 AM) Hct [36.0-46.0 %] 43.3 % (02/20/21 AM) HDL 62 mg/dL *NA* (02/20/21 AM) Hgb [12.0-15.0 gm/dL] 14.2 gm/dL (02/20/21 AM) MCH [26.0-34.0 pg] 33.0 pg (02/20/21 AM) MCHC [31.0-37.0 gm/dL] 32.8 gm/dL (02/20/21 AM) MCV [80-100 fL] 101 fL *HI* (02/20/21 AM) MPV [9.2-12.7 fL] 10.1 fL (02/20/21 AM) Glucose Level [74-106 mg/dL] 90 mg/dL (02/20/21 10:02 AM) Platelet [150-350 x10(3)/mcL] 239 x10(3) /mcL (02/20/21 10:02 AM) Potassium Level [3.5-5.1 mmol/L] 4.4 mmo l/L (02/20/21 10:02 AM) WBC [4.5-11.0 x10(3)/mcL] 7.0 x10(3)/mcL (02/20/21 10:02 AM) BUN [7-18 mg/dL] 17 mg/dL (02/20/21:02 AM) Calcium Level [8.5-10.1 mg/dL] 8.8 mg/dL (02/20/21 10: AM) Chloride [98-107 mmol/L] 109 mmol/L *HI* (02/20/21 10: AM) eGFR AA >60 mL/min/1.73 m2 *NA* (02/20/21 AM) eGFR EASTON >60 mL/min/1.73 m2 *NA* (02/20/21: AM) Neutrophil Absolute [1.50-7.80 x10(3)/mc L] 3.89 x10(3)/mcL (02/20/21 10:02 AM) Lymphocyte Absolute [1.10-4.80 x10(3)/mc L] 2.03 x10(3)/mcL (02/20/21 10:02 AM) Monocyte Absolute 0.57 x10(3)/mcL *NA* (02/20/21 10:02 AM) Eosinophil Absolute 0.46 x10(3)/mcL *NA* (02/20/21 10:02 AM) Basophil Absolute 0.07 x10(3)/mcL *NA* (02/20/21 10:02 AM) Imm Gran Absolute 0.02 /mcL *NA* (02/20/21 10: AM) NRBC % [0.0-0.2 %] 0.0 % (02/20/21 10:02 AM) Osmol Calculated 282 mOsm/kg *NA* (02/20/21: AM) Eosinophil Auto [1.0-4.0 %] 6.5 % *HI* (9/10/21 10:02 AM) Immature Granulocyte Auto 0 % *NA* (02/20/21 10:02 AM) Lymphocyte Auto [24.0-44.0 %] 28.8 % (02/20/21 10:02 AM) Monocyte Auto [2.0-11.0 %] 8.1 % (02/20/21 10:02 AM) Neutrophil Auto [31.0-76.0 %] 55.3 % (02/20/21 10:02 AM) Basophil Auto [0.0-2.0 %] 1.0 % (02/20/21 10:02 AM) Creatinine [0.6-1.3 mg/dL] 0.7 mg/dL (02/20/21 10:02 AM) Social History Social History Type Response Smoking Status Never smoker Sex Female
--- OUTSIDE RECORDS SUMMARY | 2024-03-20 14:29 | XMS_ITS | Continuity of Care Document ---
Author Organization [facility] Address Unknown Care Team Providers Care Upstream Biomanufacturing Technician Name Role Phone RAMSES KATE Primary Care Physician Encounter Date(s): 05/25/21 - 05/25/[address] [address] Encounter Diagnosis Encounter for screening for other viral diseases(Discharge Diagnosis) - 05/25/21 Discharge Disposition: Home or Self Care Attending Physician: ALISSA PORTER MD Admitting Physician: ALISSA PORTER MD Allergies, Adverse Reactions, Alerts Substance Reaction Severity Status amoxicillin Rash Active sulfa drugs Rash Active Bactrim Rash Active Assessment and Plan Future Appointments Appointment Date:05/27/2021 07:30:00 AM Scheduled Provider: Location:OR Appointment Type:Surgery - OR Appointment Date:06/08/2021 02:40:00 PM Scheduled Provider:ALISSA PORTER MD Location:[facility] - Appointment [...] [facility] Completed Results Laboratory List Name Date Coronavirus SARS-COV-2 05/25/21 Most recent to oldest [Reference Range]: 1 Coronavirus SARS-CoV-2 [Not Detected] No t Detected 1 *NA* (05/25/21 10:45 AM) 1Result Comment: Coronavirus SARS CoV-2 PCR test performed on [facility]. SARS CoV-2 Not Detected indicates that RNA was not present in the sample provided above the limit of detection. However, it does not rule out COVID-19 and should not be used as the sole basis for treatment or patient management decisions. The results of this test should be interpreted in combination with clinical observations, patient history, and epidemiological information. Social History Social History Type Response Smoking Status Never smoker Sex Female
--- OUTSIDE RECORDS SUMMARY | 2024-03-20 14:29 | XMS_ITS | Continuity of Care Document ---
Author Organization [facility] Address Unknown Care Team Providers Care Check Cashier Name Role Phone RAMSES KATE Primary Care Physician Encounter Date(s): 02/02/23 - 02/02/[address] [address] [facility] Encounter Diagnosis Screen for colon cancer(Discharge Diagnosis) - 12/23/22 FH: colon polyps(Discharge Diagnosis) - 12/23/22 Discharge Disposition: Home or Self Care Attending Physician: AMANDA CONNOLLY MD Admitting Physician: AMANDA CONNOLLY MD Referring Physician: AMANDA CONNOLLY MD Allergies, Adverse Reactions, Alerts Substance Reaction [...] Start Date: 05/21/21 Status: Ordered Mental Status 02/02/23 Level of Consciousness Alert Orientation Assessment Oriented [...] Temperature Temporal Artery [36.3-37.8 DegC] 36.7 DegC (02/02/23 7:41 AM) Peripheral Pulse Rate [60-100 bpm] 72 bpm (02/02/23 8:25 AM) 75 bpm (02/02/23 8:15 AM) 76 bpm (02/02/23 8:05 AM) Heart Rate Monitored [60-100 bpm] 73 bpm (02/02/23 8:25 AM) 75 bpm (02/02/23 8:15 AM) 76 bpm (02/02/23 8:05 AM) Respiratory Rate [14-20 br/min] 17 br/min (02/02/23 8:25 AM) 12 br/min *LOW* (02/02/23 8:15 AM) 13 br/min *LOW* (02/02/23 8:05 AM) Blood Pressure [90-140/60-90 mmHg] 88/63mmHg *LOW* (02/02/23 8:25 AM) 109/56mmHg (02/02/23 8:15 AM) 101/52mmHg (02/02/23 8:05 AM) Mean Arterial Pressure, Cuff 71 mmHg (02/02/23 8:25 AM) 72 mmHg (02/02/23 8:15 AM) 66 mmHg (02/02/23 8:05 AM) Social History Social History Type Response [...] [facility] nown Hospital Discharge Instructions Patient Education 02/01/2023 09:42:27 Recovering_from_your_colonoscopy (CUSTOM) Recovering from your colonoscopy What to expect during your recovery Pain control: Expect gas and bloating. This should get better today. If the gas causes pain, walk around or use warm packs on your belly. This should help the gas to pass faster. Nausea control: Sometimes patients feel sick to their stomach after their colonoscopy. We would like you to eat and drink after your test but know that fatty and spicy foods can make yousicker to your stomach. Eat light foods and make sure you drink enough that your pee (urine) is light yellow or clear. The nausea should pass by the day after your colonoscopy. Infection signs: Risk for infection after a colonoscopy is very small. Signs of infection could be pain or redness at the site where you had an I.V. (needle site) or fever over 101.5. If the needle site is red or tender, apply moist heat to the area for 15 minutes at a time. If it isn???t better in 24 hours, call your primary care doctor. If you have had sedation: You may feel relaxed, sleepy or dizzy. We also expect that you might be very forgetful. This is whywe have your ice delivery driver with you when the doctor speaks to you after your test. You should feel better in 24 hours. Take rest breaks and go slower than usual for the first 24 hours. If you are going to be alone, have a friend check on you every 4 hours for the next [address], OPERATE HEAVY MACHINERY, DRINK ALCOHOL, OR MAKE LEGAL DECISIONS FOR 24 HOURS! Call the emergency room right away if: [phone] You have belly pain that gets worse instead of better A fever over 101.5 Black or bloody poop (stool) You get more dizzy or weaker instead of feeling better as the day goes on Patient Signature: RN Signature: Date/Time: Patient Care team information Care Team Personnel Name: RAMSES KATE MD Position: Community Physician Member Role: Primary Care Physician Address: Address: [place] [place], [place] [address] Name: AMANDA CONNOLLY MD Position: Physician - General Surgeon Med Service: General Surgery Member Role: Admitting Physician Care Team Related Persons Name: KIRSTY MOTT Address: Home [address] [facility], [phone]
--- OUTSIDE RECORDS SUMMARY | 2024-03-20 14:29 | XMS_ITS | Continuity of Care Document ---
Author Organization [facility] Address Unknown Care Team Providers Care Retail Loan Officer Name Role Phone RAMSES KATE Primary Care Physician Encounter Date(s): 06/22/23 - 06/22/23 [facility] [address] [place] [address] [phone] Discharge Disposition: Home or Self Care Attending Physician: ALISSA PORTER MD Admitting Physician: ALISSA PORTER MD Allergies, Adverse Reactions, Alerts Substance Criticality Severity Reaction Reaction Severity Status amoxicillin Rash Active sulfa drugs Rash Active Bactrim Rash Active Assessment and Plan Future Appointments Appointment Date:06/23/2023 02:05:00 PM Scheduled Provider: Location:OR Appointment Type:Surgery - OR Appointment Date:07/06/2023 08:50:00 AM Scheduled Provider:ALISSA PORTER MD Location:[facility] - Appointment Type:[facility] Office Visit Post Op or Procedure O Immunizations Given and Recorded Vaccine Date Status [...] Member Role: Primary Care Physician Address: Address: [place] [address] [place] [address]- Care Team Related Persons Name: KIRSTY MOTT Address: Home [address] [facility], [id number]
--- OUTSIDE RECORDS SUMMARY | 2024-03-20 14:29 | XMS_ITS | Continuity of Care Document ---
Author Organization [facility] Address Unknown Care Team Providers Care Team Automobile Assembler Name Role Phone RAMSES KATE Primary Care Physician Encounter Date(s): 10/03/23 - 10/03/23 [facility] [address] [place] [address] Discharge Disposition: Home or Self Care Attending Physician: ALISSA PORTER MD Admitting Physician: ALISSA PORTER MD Allergies, Adverse Reactions, Alerts Substance Criticality Severity Reaction Reaction Severity Status amoxicillin Rash Active sulfa drugs Rash Active Bactrim Rash Active Assessment and Plan Future Appointments Appointment Date:12/23/2023 10:10:00 AM Scheduled Provider:ALISSA PORTER MD Location:[facility] - Appointment Type:[facility] Office Visit Follow Up [...] Member Role: Primary Care Physician Address: Address: [address] [place] [address]- Care Team Related Persons Name: KIRSTY MOTT Address: Home [address] [facility], [phone]
--- OUTSIDE RECORDS SUMMARY | 2024-03-20 14:29 | XMS_ITS | Continuity of Care Document ---
Author Organization [facility] Address Unknown Care Team Providers Care Product Marketing Analyst Name Role Phone RAMSES KATE Primary Care Physician Encounter Date(s): 02/24/23 - 02/24/[address] [address] Discharge Disposition: Home or Self Care [...] Date .Estimated Glomerular Filtration Rate .Manual Diff 02/24/23 .Morphology 02/24/23 CBC Auto Diff reflex Manual Diff 02/24/23 Comprehensive Metabolic Panel 02/24/23 Most recent to oldest [Reference Range]: 1 RBC Morphology Abnormal *NA* (02/24/23 9:42 AM) Anisocyte 1+ *NA* (02/24/23 9:42 AM) Microcyte 2+ *NA* (02/24/23 9:42 AM) Platelet Estimate Adequate *NA* (02/24/23 9:42 AM) AGAP 7 *NA* (02/24/23 9:42 AM) A/G Ratio 0.9 *NA* (02/24/23 9:42 AM) BUN/Creat Ratio 29 *NA* (02/24/23 9:42 AM) RBC [4.00-5.20 x10(6)/mcL] 3.31 x10(6)/m cL *LOW* (02/24/23 9:42 AM) RDW [11.5-14.5 %] 17.2 % *HI* (02/24/23 9:42 AM) Neutrophil [31-76 %] 49 % (02/24/23 9:42 AM) Sodium Level [136-145 mmol/L] 145 mmol/L (02/24/23 9:42 AM) Total Protein [6.4-8.2 gm/dL] 6.6 gm/dL (02/24/23 9:42 AM) AST [15-37 IU/L] 42 IU/L *HI* (02/24/23 9:42 AM) Basophil [0-2 %] 0 % (02/24/23 9:42 AM) Bili Total [0.20-1.00 mg/dL] 0.96 mg/dL (02/24/23 9:42 AM) CO2 [21-32 mmol/L] 28 mmol/L (02/24/23 9:42 AM) Eosinophil [1-4 %] 6 % *HI* (02/24/23 9:42 AM) Atypical Lymph 4 % *NA* (02/24/23 9:42 AM) Albumin Level [3.4-5.0 gm/dL] 3.2 gm/dL *LOW* (02/24/23 9:42 AM) Alk Phos [48-129 unit/L] 158 unit/L *HI* (02/24/23 9:42 AM) ALT [13-61 IU/L] 32 IU/L (02/24/23 9:42 AM) Hct [36.0-46.0 %] 37.5 % (02/24/23 9:42 AM) Hgb [12.0-15.0 gm/dL] 12.9 gm/dL (02/24/23 9:42 AM) Lymphocyte [24-44 %] 30 % (02/24/23 9:42 AM) MCH [26.0-34.0 pg] 39.0 pg *HI* (02/24/23 9:42 AM) MCHC [31.0-37.0 gm/dL] 34.4 gm/dL (02/24/23 9:42 AM) MCV [80-100 fL] 113 fL *HI* (02/24/23 9:42 AM) Monocyte [2-11 %] 11 % (02/24/23 9:42 AM) MPV [9.2-12.7 fL] 10.6 fL (02/24/23 9:42 AM) Glucose Level [74-106 mg/dL] 91 mg/dL (02/24/23 9:42 AM) Platelet [150-350 x10(3)/mcL] 134 x10(3) /mcL *LOW* (02/24/23 9:42 AM) Potassium Level [3.5-5.1 mmol/L] 4.0 mmo l/L (02/24/23 9:42 AM) WBC [4.5-11.0 x10(3)/mcL] 4.6 x10(3)/mcL (02/24/23 9:42 AM) BUN [7-18 mg/dL] 20 mg/dL *HI* (02/24/23 9:42 AM) Calcium Level [8.5-10.1 mg/dL] 8.9 mg/dL (02/24/23 9:42 AM) Chloride [98-107 mmol/L] 114 mmol/L *HI* (02/24/23 9:42 AM) eGFR AA >60 mL/min/1.73 m2 *NA* (02/24/23 9:42 AM) eGFR EASTON >60 mL/min/1.73 m2 *NA* (02/24/23 9:42 AM) NRBC % [0.0-0.2 %] 0.0 % (02/24/23 9:42 AM) Osmol Calculated 291 mOsm/kg *NA* (02/24/23 9:42 AM) Creatinine [0.6-1.3 mg/dL] 0.7 mg/dL (02/24/23 9:42 AM) Abs Baso Man 0.0 x10(3)/mcL *NA* (02/24/23 9:42 AM) Abs Eos Man 0.3 x10(3)/mcL *NA* (02/24/23 9:42 AM) Abs Lymph Man [1.1-4.8 x10(3)/mcL] 1.6 x 10(3)/mcL (02/24/23 9:42 AM) Abs Lyman Man 0.5 x10(3)/mcL *NA* (02/24/23 9:42 AM) Abs Seg Man [1.5-7.8 x10(3)/mcL] 2.3 x10 (3)/mcL (02/24/23 9:42 AM) Social History Social History Type Response [...] Member Role: Primary Care Physician Address: Address: [place] [place], [place] [address] Care Team Related Persons Name: KIRSTY MOTT Address: Home [address] [facility], [phone]
--- OUTSIDE RECORDS SUMMARY | 2024-03-20 14:30 | XMS_ITS | Clinical Summary ---
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 Active RED YEAST RICE EXTRACT ORAL Take 1,200 mg by mouth daily. 600mg 2x a day Active calcium-vitamin D (OS-CHAR D) 500 mg(1,250mg) -200 unit per tablet Take 1 Tablet by mouth 2 times daily with breakfast and dinner. Active valACYclovir (VALTREX) 500 mg tablet Take 1 Tab by mouth daily. 90 Tab 3 3 Active omeprazole (PRILOSEC) 40 mg capsuleIndication s:Gastroesophagea l reflux disease, unspecified whether esophagitis present Take 1 Capsule by mouth 2 times daily. 60 Capsule 11 4 Active cholecalciferol, Vitamin D3, 25 mcg (1,000 unit) tablet Take 1 Tablet by mouth daily. Active venlafaxine (EFFEXOR-XR) 75 mg XR capsuleIndication s:Primary malignant neoplasm of breast with metastasis (HCC-CMS) Take 1 Capsule by mouth daily for 360 days. 30 Capsule 11 4 01/01/20 25 Active ipratropium-albut Monserrat (DUONEB) 0.5 mg-3 mg(2.5 mg base)/3 mL nebulizer solutionIndicatio ns: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, 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HCC-CMS) Take 3 mL by nebulization every 6 hours as needed for up to 30 days for Wheezing. 90 Each 4 Active Additional Information Patient not taking.Reported on 01/31/2024 cyclobenzaprine (FLEXERIL) 10 mg tabletIndications :Malignant neoplasm of right female breast, unspecified estrogen receptor status, unspecified site of breast (HCC-CMS) Take 1 Tablet by mouth 2 times daily as needed for Muscle Spasms. 60 Tablet 1 4 Active naloxone (NARCAN) 4 mg/actuation nasal spray 0.1 mL by nasal route as needed for up to 2 doses for Opioid Reversal. 2 Each 4 Active Additional Information Patient not taking.Reported on 03/13/2024 furosemide (LASIX) 20 mg tablet Take 2 Tablets by mouth daily. 60 Tablet 1 4 Active atovaquone (MEPRON) 750 mg/5 mL suspension Take 10 mL by mouth every 24 hours. 840 mL 3 4 Active spironolactone (ALDACTONE) 100 mg tablet Take 2 Tablets by mouth daily. 60 Tablet 2 4 Active Additional Information Patient taking differently:200 mg oral DAILY,Takes 400mg per day, Reported on 03/13/2024 mirtazapine (REMERON) 7.5 mg tabletIndications :Malignant neoplasm of right female breast, unspecified estrogen receptor status, unspecified site of breast (HCC-CMS),Pneumon ia due to Pneumocystis jirovecii, unspecified laterality, 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HCC-CMS),Primary malignant neoplasm of breast with metastasis (HCC-CMS) Take 1 Tablet by mouth at bedtime. 30 Tablet 11 4 Active apixaban (ELIQUIS) 2.5 mg tabletIndications :Malignant neoplasm of right female breast, unspecified estrogen receptor status, unspecified site of breast (HCC-CMS),Pneumon ia due to Pneumocystis jirovecii, unspecified laterality, 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HCC-CMS),Primary malignant neoplasm of breast with metastasis (HCC-CMS),Acute hypoxic respiratory failure (HCC-CMS) Take 1 Tablet by mouth 2 times daily. 60 Tablet 11 4 Active apixaban (ELIQUIS) 5 mg tabletIndications :Primary malignant neoplasm of breast with metastasis (HCC-CMS) Take 1 Tablet by mouth 2 times daily. 60 Tablet 11 4 03/13/20 24 Discontinued spironolactone (ALDACTONE) 100 mg tablet Take 1 Tablet by mouth daily for 30 days. 30 Tablet 4 02/19/20 24 Active Problems Patient Care Coordination No te Formatting of this note migh t be different from the original. Patient has given permission for [facility] to verbally discuss the following information with Nitish Nesbitt who has the following relationship to the patient: Spouse/Partner: Scheduling/Appt/Billing/Payment Information (does not include clinical information unless specifically indicated with separate option) Medical Information including symptoms, diagnosis, medications, test results and treatment plan (does not include Mental Health unless specifically indicated with separate option) Mental Health (Behavioral,Psychiatric,Chemical Dependency) health information, including my symptoms, diagnosis, medications and treatment plan Permission remains in effect until the patient elects to revoke it. Pt plans to have medicare in June 2023. -Bebeto Franz 05/23/2023 12:35 Problem Noted Date Diagnosed Date Goals of care, counseling/discussion 01/17/2024 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 (HCC-CMS ) 01/16/2024 Leukocytosis 01/13/2024 Ground glass opacity present on imaging of lung 01/12/2024 Mild malnutrition (HCC) (HCC-CMS) 01/11/[address] of the chest 01/09/2024 Acute hypoxic respiratory failure (HCC-CMS) 12/12 Shortness of breath 01/08/2024 Anemia, unspecified type 01/08/2024 Encephalopathy acute 12/15/2023 Metastatic malignant neoplasm (HCC-CMS) 12/12/19 Other ascites 12/12/2023 Acute pulmonary embolism wit hout acute cor pulmonale (HCC-CMS) 11/23/2023 Chronic cough 11/23/2023 Gastroesophageal reflux disease 11/23/2023 Dry eye syndrome of both eyes 05/20/2023 Epiretinal membrane (ERM) of left eye 05/20/2023 Retinal tear of left eye 07/13/2022 PVD (posterior vitreous detachment), both eyes 0 07/13/2022 Bilateral retinal lattice degeneration 3 S/P breast reconstruction, right 06/19/2019 Overview: Added automatically from request for surgery [id number] Lipoma of back 06/19/2019 Overview: Added automatically from request for surgery [id number] Osteopenia 05/23/2019 Palliative care by specialist 10/03/2017 Malignant neoplasm of female breast ([facility]) Primary malignant neoplasm o f breast with metastasis ([facility]) 11/18/2016 Overview: IMO 09/11 Regulatory Update Breast lump 10/21/2016 Plantar fat pad atrophy 02/14/2014 Overview: Left heel Trigger thumb of left hand 05/21/2013 Plantar fasciitis of left foot 03/14/2013 Unstable right ankle 03/14/2013 Hallux rigidus of right foot 03/14/2013 Personal history of malignant neoplasm of breast 02/25/2012 Acquired absence of breast and nipple 09/16/2011 Lumbar radicular syndrome 01/18/2011 Acquired spondylolisthesis 01/18/2011 Lumbosacral spondylosis without myelopathy 01/18 Menopausal and postmenopausal disorder 0 Overview: ICD10 Update Auto Replacement Encounter for routine gynecological examination 09/26/2009 Overview: ICD10 Update Auto Replacement Premature ovarian failure 09/12/2009 Herpes simplex type 2 infection 09/12/2009 Papanicolaou smear of cervix with low grade squamous intraepithelial lesion (LGSIL) 03/11/2009 Encounters Date Type Department Care Team Description 4 Telephone [facility] Hematology & Oncology - [address] [address] Trinh Posey Social Work (Care coordination) 4 Orders Only [facility] Hematology & Oncology [address] [id number] Trinh Posey Malignant neoplasm of female breast, unspecified estrogen receptor status, unspecified laterality, unspecified site of breast (HCC-CMS) (Primary Dx) 4 14:00 EDT - 4 23:59 EDT Hospital Encounter [facility] Hematology Oncology [address] [phone] Malignant neoplasm of right female breast, unspecified estrogen receptor status, unspecified site of breast (HCC-CMS) (Primary Dx); Primary malignant neoplasm of breast with metastasis (HCC-CMS); Osteopenia of necks of both femurs Discharge Disposition: Home or Self Care 4 Telephone [facility] Hematology Oncology [address] [address] Trinh Posey Social Work (Check in) 4 Telephone [facility] Pulmonology & Critical Care [address] [phone] Julia Salazar, SHELLEY Follow-up 4 Documentation Visit [facility] Gastroenterology [address] [id number] Hugo Vergara MD PhD 4 Telephone [facility] Gastroenterology [address] [phone] Yovana Bowman, SHELLEY Results 4 14:53 EDT - 4 23:59 EDT Hospital Encounter [facility] Pulmonary Function Lab - [address] [phone] Pft Pedi, [facility] Pft Lab Acute hypoxic respiratory failure (HCC-CMS) Discharge Disposition: Home or Self Care 4 13:00 EDT Office Visit [facility] Hematology & Oncology [address] [phone] Alisson Carreon MD Malignant neoplasm of right female breast, unspecified estrogen receptor status, unspecified site of breast (HCC-CMS) (Primary Dx); 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, unspecified laterality, 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HCC-CMS); Primary malignant neoplasm of breast with metastasis (HCC-CMS); Acute hypoxic respiratory failure (HCC-CMS) 4 7:56 EDT - 4 14:52 EDT Hospital Encounter [facility] Radiology CT - [address] [address] Primary malignant neoplasm of breast with metastasis (HCC-CMS) Discharge Disposition: Home or Self Care 4 7:15 EDT - 4 7:55 EDT Hospital Encounter [facility] Hematology & Oncology - [address] [address] Primary malignant neoplasm of breast with metastasis (HCC-CMS); CAP (community acquired pneumonia) due to Pneumocystis jirovecii ([facility]-CMS); Other ascites Discharge Disposition: Home or Self Care 4 Orders Only [facility] Hematology & Oncology - [address] [address] Alisson Carreon MD 4 Orders Only [facility] Radiology - [address] [address] Allen Miller MD 4 Orders Only [facility] Interventional Radiology Unit [address] [place] [address] Moises Herrera MD 4 Telephone [facility] Pulmonology & Critical Care - [address] [phone] Jackie Leach, DO Patient Outreach 4 11:00 EDT - 4 23:59 EDT Hospital Encounter [facility] Pulmonary Function Lab - [address] [address] Pft Pedi, [facility] Pft Lab Diffuse alveolar damage (HCC-CMS) Discharge Disposition: Home or Self Care 4 9:30 EDT Office Visit [facility] Palliative Care Services [address] [place] [address] Chichi Woods MD Palliative care by specialist (Primary Dx); Malignant neoplasm of right female breast, unspecified estrogen receptor status, unspecified site of breast (HCC-CMS) 4 Telephone [facility] Hematology & Oncology [address] [phone] Alisson Carreon MD Appointment Related 4 Telephone [facility] Gastroenterology [address] [phone] Yovana Bowman, SHELLEY Results 4 15:42 EDT - 4 23:59 EDT Hospital Encounter [facility] Lab [address] [place], [place] [id number] Lab, [facility] Phlebotomy Other ascites Discharge Disposition: Home or Self Care 4 Telephone [facility] Hematology & Oncology [address] [phone] Trinh Posey Social Work (Check in) 4 14:00 EDT Telemedicine [facility] Interventional Radiology - [address] [phone] David Moya MD Metastases to the liver ([facility]-CMS) (Primary Dx) 4 Telephone [facility] Pulmonology & Critical Care - [address] [phone] Ana Quintanilla MD Appointment Related 4 Telephone [facility] Gastroenterology [address] [phone] Yovana Bowman, SHELLEY Results 4 13:48 EDT - 4 23:59 EDT Hospital Encounter [facility] Interventional Radiology Unit [address] [place] [address] [phone] Uche Wilson, Johnson Mcmillan MD Ascites; Other ascites Discharge Disposition: Home or Self Care 4 Telephone [facility] Hematology & Oncology [address] [phone] Trinh Posey Social Work (support) 4 9:30 EDT Telemedicine [facility] Hematology & Oncology [address] [phone] Alisson Carreon MD Malignant neoplasm of right female breast, unspecified estrogen receptor status, unspecified site of breast (HCC-CMS) (Primary Dx); 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, unspecified laterality, 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HCC-CMS); Primary malignant neoplasm of breast with metastasis (HCC-CMS); Acute hypoxic respiratory failure (HCC-CMS) 4 Telephone [facility] Hematology & Oncology [address] [phone] Trinh Posey Social Work (support) 4 Orders Only [facility] Oncology [address] [phone] Alisson Carreon MD 4 13:00 EDT Telemedicine [facility] Hematology & Oncology [address] [phone] Alisson Carreon MD Malignant neoplasm of right female breast, unspecified estrogen receptor status, unspecified site of breast (HCC-CMS) (Primary Dx); 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, unspecified laterality, 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HCC-CMS); Primary malignant neoplasm of breast with metastasis (HCC-CMS); Acute hypoxic respiratory failure (HCC-CMS) 4 Telephone [facility] Infectious Disease - [address] [phone] Errol Ferrell MD Medication Management 4 Orders Only [facility] Hematology & Oncology [address] [address] Alisson Carreon MD 4 Refill [facility] Infectious Disease - [address] [address] Sandhya Aguilar RN Follow-up 4 Orders Only [facility] Hematology & Oncology [address] [address] Alisson Carreon MD Malignant neoplasm of right female breast, unspecified estrogen receptor status, unspecified site of breast (HCC-CMS) (Primary Dx) 4 Telephone [facility] Hematology Oncology [address] [address] Alisson Carreon MD Follow-up 4 Telephone [facility] Hematology & Oncology [address] [address] Alisson Carreon MD Coordination Of Care 4 Telephone [facility] Hematology & Oncology [address] [address] Trinh Posey Social Work (support) 4 Telephone [facility] Hematology Oncology [address] [address] Alisson Carreon MD COVID-19 4 Telephone [facility] Gastroenterology [address] [address] Yovana Bowman, RN Results 4 Orders Only [facility] Hematology & Oncology [address] [address] Ana Laura Winn RN Primary malignant neoplasm of breast with metastasis (HCC-CMS) (Primary Dx) 4 Orders Only [facility] Hematology & Oncology [address] 38[address] Kendra Worthy RN 4 15:15 EDT - 4 23:59 EDT Hospital Encounter [facility] Hematology & Oncology [address] 109211 Malignant neoplasm of right female breast, unspecified estrogen receptor status, unspecified site of breast (HCC-CMS); Primary malignant neoplasm of breast with metastasis (HCC-CMS) Discharge Disposition: Home or Self Care 4 12:23 EDT - 4 15:14 EDT Hospital Encounter [facility] Interventional Radiology Unit [address] [place] [address] Samuel Noble PA-C Other ascites (Primary Dx); Ascites Discharge Disposition: Home or Self Care 4 10:00 EDT Office Visit [facility] Infectious Disease [address] [address] Errol Ferrell MD CAP (community acquired pneumonia) due to Pneumocystis jirovecii (HCC-CMS) (Primary Dx) 4 8:43 EDT - 4 12:22 EDT Hospital Encounter [address] [phone] Diffuse alveolar damage (HCC-CMS) Discharge Disposition: Home or Self Care 4 Orders Only [facility] Hematology & Oncology [address] [phone] Alisson Carreon MD Malignant neoplasm of right female breast, unspecified estrogen receptor status, unspecified site of breast (HCC-CMS) 4 Telephone [facility] Hematology & Oncology [address] [phone] Alisson Carreon MD Appointment Related 4 11:00 EDT Office Visit [facility] Hematology & Oncology [address] [phone] Nadeen Blood PA-C Primary malignant neoplasm of breast with metastasis (HCC-CMS) (Primary Dx); 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, unspecified laterality, 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HCC-CMS) 4 10:27 EDT - 4 23:59 EDT Hospital Encounter [facility] Hematology & Oncology [address] [address] Osteopenia of necks of both femurs (Primary Dx); Primary malignant neoplasm of breast with metastasis (HCC-CMS) Discharge Disposition: Home or Self Care 4 10:27 EDT - 4 23:59 EDT Hospital Encounter [facility] Hematology & Oncology [address] 106031 Malignant neoplasm of right female breast, unspecified estrogen receptor status, unspecified site of breast (HCC-CMS); Primary malignant neoplasm of breast with metastasis (HCC-CMS) Discharge Disposition: Home or Self Care 4 6:52 EDT - 4 10:26 EDT Hospital Encounter [facility] Non-Invasive Cardiology [address] [phone] Primary malignant neoplasm of breast with metastasis (HCC-CMS); Malignant neoplasm of right female breast, unspecified estrogen receptor status, unspecified site of breast (HCC-CMS); Abnormal electrocardiogram (ECG) (EKG) Discharge Disposition: Home or Self Care 4 6:51 EDT Hospital Encounter [facility] Interventional Radiology Unit [address] [place] [address] [phone] Uche Wilson PA-C Other ascites (Primary Dx); Ascites Discharge Disposition: Home or Self Care 4 Telephone [facility] Gastroenterology - [address] [phone] Yovana Bowman RN Results 4 Orders Only [facility] Hematology & Oncology - [address] [phone] Fennelly, Marian, RN Malignant neoplasm of right female breast, unspecified estrogen receptor status, unspecified site of breast (HCC-CMS) (Primary Dx) 4 Telephone [facility] Hematology & Oncology [address] [phone] Nadeen Blood PA-C Appointment Related 4 Telephone [facility] Infectious Disease - [address] [address] Errol Ferrell MD Other 4 Refill [facility] Gastroenterology [address] [address] Hugo Vergara MD PhD Medications Refill 4 15:30 EDT Office Visit [facility] Pulmonology & Critical Care [address] [address] Ana Quintanilla MD Diffuse alveolar damage (HCC-CMS) (Primary Dx) 4 10:14 EDT - 4 23:59 EDT Hospital Encounter [facility] Interventional Radiology Unit [address] [place] [address] Mustapha Nguyen MD Other ascites; Malignant neoplasm of female breast, unspecified estrogen receptor status, unspecified laterality, unspecified site of breast (HCC-CMS) [C50.919]; Metastatic malignant neoplasm, unspecified site (HCC-CMS) [C79.9] Discharge Disposition: Home or Self Care 4 Orders Only [facility] Hematology & Oncology [address] [address] Lois Bautista RN 4 Telephone [facility] Hematology & Oncology [address] 340591 Alisson Carreon MD Appointment Related 4 Orders Only [facility] Hematology & Oncology [address] [phone] Marian Rodarte, RN Malignant neoplasm of right female breast, unspecified estrogen receptor status, unspecified site of breast ([facility]) (Primary Dx); Abnormal electrocardiogram (ECG) (EKG) 4 Telephone [facility] Hematology & Oncology [address] [address] Alisson Carreon MD Appointment Related 4 Telephone [facility] Hematology & Oncology [address] [address] Alisson Carreon MD Follow-up 4 Telephone [facility] Infectious Disease [address] [address] Errol Ferrell MD Other 4 Telephone [facility] Hematology & Oncology [address] [address] Nadeen Blood PA-C Coordination Of Care 4 Telephone [facility] Hematology & Oncology [address] [address] Alisson Carreon MD Appointment Related 4 Telephone [facility] Gastroenterology [address] [address] Hugo Vergara MD PhD Other 4 12:45 EDT Ancillary Procedure [facility] Vascular Surgery - [address] [address] 4 Orders Only [facility] Hematology Oncology [address] [address] Alisson Carreon MD 4 Telephone [facility] Hematology & Oncology [address] [address] Pérez Stevens RN Follow-up (Called Blayne Poe bedside nurse to get update on patient status) 4 Telephone [facility] Palliative Care Services [address] [place] [address] Pippa White RN Appointment Related 4 15:02 EDT - 4 16:42 EDT Surgery [facility] OR [address] [place] [address] Chelsea Logan MD Flexible bronchoscopy with possible broncheoalveolar lavage, possible needle biopsies, forceps biopsies and possible brushings. [10088 (CPT??)] 4 Prep for Procedure [facility] Pulmonology & Critical Care - [address] [address] [address] of the chest (Primary Dx) 4 15:40 EDT - 4 16:19 EDT Hospital Encounter [facility] Hematology & Oncology Unit [address] [place] [address] Micky Sebastian MD Lambirth, Shea P, MD Farrell, [place], MD Stewart, Glenn, MD Shortness of breath (Primary Dx); Anemia, unspecified type; Other ascites; Acute hypoxic respiratory failure (HCC-CMS); Malignant neoplasm of female breast, unspecified estrogen receptor status, unspecified laterality, unspecified site of breast (HCC-CMS) [C50.919]; Metastatic malignant neoplasm, unspecified site (HCC-CMS) [C79.9]; Abnormal CT of the chest [R93.89]; Primary malignant neoplasm of breast with metastasis (HCC-CMS); Encounter for palliative care; Malignant ascites; Ground glass opacity present on imaging of lung; Leukocytosis, unspecified type; 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, unspecified laterality, 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HCC-CMS); Palliative care by specialist; Goals of care, counseling/discussion ; 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, 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HCC-CMS); Malignant neoplasm of right female breast, unspecified estrogen receptor status, unspecified site of breast (HCC-CMS) Discharge Disposition: Home or Self Care 4 Travel 4 16:45 EDT Telemedicine [facility] Hematology & Oncology [address] [address] Alisson Carreon MD Primary malignant neoplasm of breast with metastasis (HCC-CMS) (Primary Dx); Malignant neoplasm of right female breast, unspecified estrogen receptor status, unspecified site of breast (HCC-CMS) 4 Orders Only [facility] Hematology & Oncology [address] [address] Alisson Carreon MD 4 Telephone [facility] Gastroenterology - [address] [address] Hugo Vergara MD PhD Other 4 Telephone [facility] Pulmonology & Critical Care [address] [address] Jessica Sheridan RN New/Evolving Symptoms 4 Orders Only [facility] Hematology & Oncology [address] [address] Ana Laura Winn RN Primary malignant neoplasm of breast with metastasis (HCC-CMS) (Primary Dx) 4 Orders Only [facility] Hematology & Oncology [address] [address] Quita Álvarez RN Malignant neoplasm of right female breast, unspecified estrogen receptor status, unspecified site of breast (HCC-CMS) (Primary Dx) 4 Orders Only [facility] Hematology & Oncology [address] [address] Alisson Carreon MD Primary malignant neoplasm of breast with metastasis (HCC-CMS) (Primary Dx); Ground glass opacity present on imaging of lung 4 13:53 EDT - 4 23:59 EDT Hospital Encounter [facility] Lab [address], [place] [id number] Lab, [facility] Other ascites Discharge Disposition: Home or Self Care 4 13:51 EDT - 4 13:52 EDT Hospital Encounter [facility] CT Scan [address] [place] [id number] Primary malignant neoplasm of breast with metastasis (HCC-CMS) Discharge Disposition: Home or Self Care 4 Orders Only [facility] Hematology & Oncology [facility] [address] [place] [address] Alisson Carreon MD 4 8:14 EDT - 4 23:59 EDT Hospital Encounter [facility] Interventional Radiology Unit [address] [place] [address] Uche Wilson PA-C Behairy, Moataz, MD Other ascites Discharge Disposition: Home or Self Care 4 Orders Only [facility] XRAY [address], [place] [id number] Aracely Kebede 4 Orders Only [facility] XRAY [address] [place] [address] Aracely Kebede 4 Telephone [facility] Hematology & Oncology [address] [address] Alisson Carreon MD 4 Telephone [facility] G[facility]enterology - [address] [address] Greer Ruby, SHELLEY Appointment Related (Scheduling paracentesis) 4 Telephone [facility] H[facility]ology [facility] Oncology [address] [phone] Alisson Carreon MD Appointment Related 4 Telephone [facility]ology [facility] Oncology [address] [address] Zulma Acevedo RN Follow-up 4 16:30 EDT - 4 23:59 EDT Hospital Encounter [facility] [address] [place] [address] Lab, [facility] Phlebotomy Other ascites Discharge Disposition: Home or Self Care 4 Telephone [facility] G[facility]ology [address] [address] Greer Ruby, RN Results 4 Orders Only [facility]ology [facility] Oncology [address] [address] Marian oRdarte, SHELLEY Primary malignant neoplasm of breast with metastasis (HCC-CMS) (Primary Dx) 4 Telephone [facility] Hematology Oncology [address] [phone] Alisson Carreon MD New/Evolving Symptoms 4 Telephone [facility]ology [facility] Oncology [address] [phone] Alisson Carreon MD Returning Call; Appointment Related 4 Telephone [facility] Hematology Oncology [address] [phone] Alisson Carreon MD Appointment Related 4 13:30 EDT Office Visit [facility]ology [facility] Oncology [address] [phone] Alisson Carreon MD Malignant neoplasm of female breast, unspecified estrogen receptor status, unspecified laterality, unspecified site of breast (HCC-CMS) (Primary Dx); 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) [C79.9, C50.919]; Malignant neoplasm of right female breast, unspecified estrogen receptor status, unspecified site of breast (HCC-CMS); Primary malignant neoplasm of breast with metastasis (HCC-CMS) 4 11:49 EDT - 4 23:59 EDT Hospital Encounter [facility]ology [facility] Oncology [address] [address] Malignant neoplasm of right female breast, unspecified estrogen receptor status, unspecified site of breast (HCC-CMS) (Primary Dx); Primary malignant neoplasm of breast with metastasis (HCC-CMS); Osteopenia of necks of both femurs Discharge Disposition: Home or Self Care 4 11:49 EDT - 4 23:59 EDT Hospital Encounter [facility]ology [facility] Oncology [address] [address] Malignant neoplasm of right female breast, unspecified estrogen receptor status, unspecified site of breast (HCC-CMS) (Primary Dx); Primary malignant neoplasm of breast with metastasis (HCC-CMS); Other ascites Discharge Disposition: Home or Self Care 4 8:11 EDT - 4 11:48 EDT Hospital Encounter [facility] [address] [place] [phone] Uche Wilson, Johnson Mcmillan MD Other ascites; 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) [C79.9, C50.919] Discharge Disposition: Home or Self Care 4 Orders Only [facility] Hematology Oncology [address] [address] Daily, SHELLEY Du 4 Telephone [facility] G[facility]enterology [address] [address] Hugo Vergara MD PhD Other from Last 3 Months Surgical History Surgery Date Site/Laterality Comments CARPAL TUNNEL RELEASE 06/13/2007 - 06/12/2008 05/07/2019 beir block - no complications LIPOMA RESECTION 06/13/2000 - 06/12/2001 05/07/2019 GA no complications BREAST SURGERY 01/30/2004 Right mastectomy - [place] no complications BREAST RECONSTRUCTION 01/30/2004 subpectoral implant - [place] no complications BREAST SURGERY 08/11/2018 - 09/10/2018 color paste mixing supervisor placed right breast - [place] no complications BREAST RECONSTRUCTION 05/13/2018 - 06/12/2018 right - [place] no complications MA INSJ/RPLCMT BREAST IMPLANT FEB DAY MASTECTOMY 05/30/2019 Bilateral Exchange right tissue color paste mixing supervisor to silicone implant, exchange of left implant for matching performed by Tylor Boss MD at [facility] OR Medical devices from this surgery are in the Medical Devices section. BACK SURGERY 12/12/2011 - 01/11/2012 L3 - S1 spinal decompression and fusion - pt has hardware in place-[place] no complications FOOT SURGERY 05/13/2021 - 06/12/2021 right big toe fused, right little toe screw EYE SURGERY Partially detached retina FRACTURE SURGERY Morrell fractures in both feet,right big toe fusion Medical History Medical History Date Comments Breast cancer ([facility]) 11/2003 DCIS - r ight breast Allergy Wears glasses Numbness Environmental allergies 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 Lumbar radicular syndrome Acquired spondylolisthesis Breast cancer, right ([facility]) Exercise involving walking History of general anesthesia Nausea & vomiting Activity, other involving cardiorespiratory exercise snow shoeing GERD (gastroesophageal reflux disease) well controlled 08/25/20 Depression 08/25/20 well con trolled Arthritis right big toe Back pain spinal fussion n o issues currently 08/25/20 H/O spinal fusion L3-S1 spinal f usion Shortness of breath 04..24 Reactive airway disease 04.. Liver disease 10.12.23 Acsitiesm Pulmonary embolism ([facility]) 11.11.23 Immunosuppressed status ([facility]) 07 Breast cancer stage 4 Swelling 11.11.23 Right arm, below waist, both legs Family History Medical History Relation Comments Cancer Brother 1 esophageal Liver Disease Brother 2 Stroke Brother 2 Blot clot in his sleep Cancer Father Lung cancer Heart Disease Father Cancer Maternal Uncle bladder Mental Illness Mother Bipolar Stroke Mother Breast Cancer Paternal Aunt 1 Cancer Paternal Aunt 1 breast Cancer Paternal Aunt 2 Breast cancer *Other(comment) Sister SA valve failure Relation Status Comments Brother 1 Brother 2 Alive Brother 3 Alive Brother 4 Alive Brother 5 Alive Father Alive Maternal Uncle Mother Paternal Aunt 1 Paternal Aunt 2 Sister Social History Tobacco Use Types Packs/Day Years Used Date Smoking Tobacco: Never Passive Smoke Exposure: Never Smokeless Tobacco: Never Alcohol Use Standard Drinks/Week Comments Not Currently 1 (1 standard drink = 0.6 oz pur e alcohol) [facility] Utilities Answer Date Recorded In the past 12 months has th e electric, gas, oil, or water company threatened to shut off services in your home? No 01/08/2024 Hunger Vital Sign Answer Date Recorded Within the past 12 months, y ou worried that your food would run out before you got the money to buy more. Never true 01/08/20 24 Within the past 12 months, t he food you bought just didn't last and you didn't have money to get more. Never true 01/08/2024 PRAPARE - Transportation Answer Date Re corded In the past 12 months, has l ack of transportation kept you from medical appointments or from getting medications? No 12/13 In the past 12 months, has l ack of transportation kept you from meetings, work, or from getting things needed for daily living? No 01/10/2024 Housing Stability Vital Sign Answer Rubén e Recorded In the last 12 months, was t here a time when you were not able to pay the mortgage or rent on time? No 01/10/2024 In the past 12 months, how m any times have you moved where you were living? 0 01/10/2024 At any time in the past 12 m [facility], were you homeless or living in a longterm (including now)? No 01/10/2024 Interpersonal Safety Answer Date Record ed How often does anyone, inclu aga family, hit, punch or physically hurt you? 01/08/2024 How often does anyone, inclu aga family, insult, scream, curse or threaten to hurt you? 01/08/2024 Sex and Gender Information Value Date Recorded Sex Assigned at Female 05/17/2019 15:31 EST Gender Identity Female 04/26/2019 13:08 EST Sexual Orientation Bisexual 08/26/2022 10 :47 EDT Obstetrics History Para Term AB IAB SAB Ectopic Multiple Livin g Live Births 0 Last Filed Vital Signs Vital Sign Reading Time Taken Comments Blood Pressure 130/62 03/16/2024 1426 EDT Pulse 111 03/16/2024 1426 EDT Temperature 36.4 ??C (97.5 ??F) 03/16/2024 1426 EDT Respiratory Rate 16 03/16/2024 1426 EDT Oxygen Saturation 97% 03/16/2024 1426 EDT Inhaled Oxygen Concentration - - Weight 45.9 kg (101 lb 4.8 oz) 03/16/2024 1426 E DT Height 154.9 cm (5' 0.98) 01/31/2024 0943 EDT Body Mass Index 19.15 01/31/2024 0943 EDT Plan of Treatment Upcoming Encounters Date Type Department Care Team (Late st Contact Info) Description 04/02/2024 10:30 EDT Appointment [facility] [address] [place] [phone] 04/02/2024 15:15 EDT Office Visit [facility] Surgical Oncology - [address] [phone] Adolfo Carreno MD [address] [place] [address] [phone] 04/05/2024 9:30 EDT Telemedicine [facility] [address] [place] [address] [phone] Chichi Woods MD [address] [place] [address] [phone] 04/11/2024 15:00 EDT Telemedicine [facility] Hematology & Oncology [address] [phone] Alisson Carreon MD [address] [place] [address] [phone] 04/13/2024 13:30 EDT Appointment [facility] Oncology [address] [phone] 04/13/2024 14:00 EDT Appointment [facility] Oncology [address] [id number] 04/16/2024 10:00 EST Telemedicine [facility] - [facility] [address] [place] [address] [phone] Chichi Woods MD [address] [place] [address], [address] [phone] 04/24/2024 9:00 EST Appointment [facility] Radiology CT Outpatient - [address] [phone] 04/24/2024 11:00 EST Appointment [facility] Breast Imaging - [facility] [address] [place] [address] [place], [place] [phone] 04/27/2024 12:00 EST Appointment [facility] Hematology & Oncology - [address] [phone] 05/02/2024 15:00 EST Telemedicine [facility] Hematology [facility] Oncology - [address] [phone] Alisson Carreon MD [address] [place] [address], Level [address] [place] [phone] 05/04/2024 10:15 EST Ancillary Procedure [facility] Cardiology - [address] [place], [place] [phone] 05/04/2024 11:30 EST Appointment [facility] Hematology [facility] Oncology - [address] [phone] 05/04/2024 12:00 EST Appointment [facility]ology [facility] Oncology [address] [phone] 06/12/2024 13:00 EST Appointment [facility] Radiology CT - [address] [phone] Health Maintenance Due Date Last Done Comments RSV Immunization ( o r 60+ Years) (1 - 1-dose 60+ series) 2021 COVID-19 Vaccine ( - 2023-2 5 season) 2024 02/27/2021, 09/17/2020, 08/27/2020 Hepatitis C Screen Completed 09/12/2009, 0 07/15/2008, 04/18/2006, Additional history exists Medical Devices Implanted Type Area Resource Recovery Engineer Device Identifier Shelf Expiration Date Model / Serial / Lot Implant Breast Gel Smooth 355cc [id number] (Mr Escamilla) Implanted:Qty: 1 on 05/30/2019 by Tylor Boss MD FACS at [facility] Breast Implant [employer] 10/19/2023 [id number] / [id number] / Implant Breast Gel Smooth 650cc Memorygel [id number] (Mr Escamilla) Implanted:Qty: 1 on 05/30/2019 by Tylor Boss MD FACS at [facility] Breast Implant [employer] 01/22/2023 [id number] / [id number] / Port Implantable Titanium Power Port Isp 8fr With Groshong Tip - [id number] Implanted:Qty: 1 on 11/03/2023 by David Moya MD at [facility] CVAD Right: Chest [employer] [id number] 01/10/2025 [id number] / / [id number] Device Embolization Microsphere 20-60um Sir Spheres [id number] (Mr Escamilla) Implanted:Qty: 1 on 04/08/2022 by David Moya MD at [facility] Embolic N/A: Liver [employer] [id number] / / Description:Non metallic per [email or web address]; RD 08/06/22 Device Embolization Microsphere 20-60um Sir Spheres [id number] (Mr Escamilla) Implanted:Qty: 1 on 05/14/2022 at [facility] Embolic N/A: Liver [employer] [id number]-[id number] / / Description:Non metallic per [email or web address]; RD 08/06/22 Tissue 8cm 2 X 4cm Acellular Human Skin Freeze Dried Non Meshed [id number] (Breast-Mr Safe) Implanted:Qty: 1 on 09/08/2020 by Tylor Bsos MD FACS at [facility] Tissue Right: Nipple [employer] [id number] 09/10/2021 [id number] / . 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) COMPLETE BLOOD COUNT AND DIFFERENTIAL STAT 03/13/2024 7:41 EDT Primary malignant neoplasm of breast with metastasis (HCC-CMS) PHOSPHORUS STAT 03/13/2024 7:38 EDT Primary malignant neoplasm of breast with metastasis (HCC-CMS) CA 27.29 STAT 03/13/2024 7:38 EDT Primary malignant neoplasm of breast with metastasis (HCC-CMS) COMPREHENSIVE METABOLIC PANEL (ONCOLOGY USE ONLY-INC MG) STAT 03/13/2024 7:38 EDT Primary malignant neoplasm of breast with metastasis (HCC-CMS) COMPLETE BLOOD COUNT AND DIFFERENTIAL STAT 03/13/2024 7:38 EDT Primary malignant neoplasm of breast with metastasis (HCC-CMS) PULMONARY FUNCTION TESTING Routine 03/08/2024 11:14 EDT Diffuse alveolar damage (HCC-CMS) BASIC METABOLIC PANEL (BMP) Routine 03/01/2024 15:56 EDT Other ascites BASIC METABOLIC PANEL (BMP) Routine 02/22/2024 14:53 EDT Other ascites IR PARACENTESIS-RADIOL OGY Routine 02/22/2024 14:50 EDT Ascites MISCELLANEOUS TEST, NON SOLER Routine 02/07/2024 17:55 EDT Malignant neoplasm of right female breast, unspecified estrogen receptor status, unspecified site of breast (HCC-CMS) PHOSPHORUS STAT 02/07/2024 15:20 EDT Malignant neoplasm of right female breast, unspecified estrogen receptor status, unspecified site of breast (HCC-CMS) COMPREHENSIVE METABOLIC PANEL (ONCOLOGY USE ONLY-INC MG) STAT 02/07/2024 15:20 EDT Primary malignant neoplasm of breast with metastasis (HCC-CMS) COMPLETE BLOOD COUNT AND DIFFERENTIAL STAT 02/07/2024 15:20 EDT Primary malignant neoplasm of breast with metastasis (HCC-CMS) CA 27.29 STAT 02/07/2024 15:20 EDT Malignant neoplasm of right female breast, unspecified estrogen receptor status, unspecified site of breast (HCC-CMS) IR PARACENTESIS-RADIOL OGY Routine 02/07/2024 14:[address] CHEST WO CONTRAST Routine 02/07/2024 8:54 EDT Diffuse alveolar damage (HCC-CMS) ORDERS - SCANNED 02/01/2024 15:26 EDT PHOSPHORUS STAT 01/31/2024 10:28 EDT Malignant neoplasm of right female breast, unspecified estrogen receptor status, unspecified site of breast (HCC-CMS) COMPREHENSIVE METABOLIC PANEL (ONCOLOGY USE ONLY-INC MG) STAT 01/31/2024 10:28 EDT Primary malignant neoplasm of breast with metastasis (HCC-CMS) COMPLETE BLOOD COUNT AND DIFFERENTIAL STAT 01/31/2024 10:28 EDT Primary malignant neoplasm of breast with metastasis (HCC-CMS) CA 27.29 STAT 01/31/2024 10:28 EDT Malignant neoplasm of right female breast, unspecified estrogen receptor status, unspecified site of breast (HCC-CMS) TRANSTHORACIC ECHO (TTE) LIMITED Routine 01/31/2024 9:43 EDT Primary malignant neoplasm of breast with metastasis (HCC-CMS) Malignant neoplasm of right female breast, unspecified estrogen receptor status, unspecified site of breast (HCC-CMS) Abnormal electrocardiogram (ECG) (EKG) IR PARACENTESIS-RADIOL OGY Routine 01/31/2024 8:33 EDT Ascites IR PARACENTESIS-RADIOL OGY Routine 01/25/2024 12:00 EDT Other ascites Malignant neoplasm of female breast, unspecified estrogen receptor status, unspecified laterality, unspecified site of breast (HCC-CMS) [C50.919] Metastatic malignant neoplasm, unspecified site (HCC-CMS) [C79.9] BASIC METABOLIC PANEL (BMP) Routine 01/25/2024 11:11 EDT Other ascites NON SOUND EFFECTS PERSON/FNA CYTOLOGY Routine 01/25/2024 11:03 EDT Other ascites TOTAL PROTEIN, FLUID Routine 01/25/2024 11:02 EDT Other ascites CA 27.29 Routine 01/19/2024 6:08 EDT COMPLETE BLOOD COUNT Routine 01/19/2024 6:08 EDT BASIC METABOLIC PANEL (BMP) Routine 01/19/2024 6:08 EDT FLUID DIFFERENTIAL Today 01/18/2024 14:20 EDT FLUID CELL COUNT Routine 01/18/2024 14:20 EDT US LOWER VENOUS DUPLEX (DVT) RIGHT Routine 01/18/2024 13:37 EDT BASIC METABOLIC PANEL (BMP) Routine 01/18/2024 5:46 EDT EVAL FOR HOME OXYGEN USE Routine 01/17/2024 11:00 EDT COMPLETE BLOOD COUNT Routine 01/17/2024 4:16 EDT BASIC METABOLIC PANEL (BMP) Routine 01/17/2024 4:16 EDT SARS COV2, FLU A/B, RSV DETECT BY PCR Routine 01/16/2024 16:41 EDT DIFFERENTIAL, AUTOMATED MANUAL Today 01/16/2024 8:35 EDT COMPLETE BLOOD COUNT AND DIFFERENTIAL STAT 01/16/2024 8:35 EDT XR CHEST 2 VIEWS STAT 01/16/2024 7:12 EDT URINE CHEMICAL (DIP) & SEDIMENT (MICRO) WITH REFLEX TO CULTURE Routine 01/16/2024 6:39 EDT BACTERIAL CULTURE, URINE Today 01/16/2024 6:39 EDT BACTERIAL CULTURE, BLOOD STAT 01/16/2024 6:28 EDT BACTERIAL CULTURE, BLOOD STAT 01/16/2024 6:28 EDT BACTERIAL CULTURE, BLOOD STAT 01/16/2024 5:46 EDT BASIC METABOLIC PANEL (BMP) Routine 01/16/2024 5:19 EDT BASIC METABOLIC PANEL (BMP) Routine 01/15/2024 5:29 EDT PHOSPHORUS Routine 01/14/2024 5:31 EDT BASIC METABOLIC PANEL (BMP) Routine 01/14/2024 5:31 EDT MAGNESIUM Routine 01/14/2024 5:31 EDT COMPLETE BLOOD COUNT Routine 01/14/2024 5:31 EDT HISTOPLASMA AND BLASTOMYCES AG, EIA, URINE Routine 01/13/2024 1:15 EDT BACTERIAL CULTURE, BLOOD Routine 01/12/2024 20:17 EDT DIFFERENTIAL, AUTOMATED MANUAL Today 01/12/2024 19:44 EDT MISCELLANEOUS TEST, ODELL Today 01/12/2024 19:44 EDT ANAPLASMA AND BABESIA TESTING BY PCR Routine 01/12/2024 19:44 EDT MISCELLANEOUS TEST, ODELL Routine 01/12/2024 19:44 EDT MISCELLANEOUS TEST, ODELL Routine 01/12/2024 19:44 EDT PHOSPHORUS Routine 01/12/2024 19:44 EDT COMPLETE BLOOD COUNT Routine 01/12/2024 19:44 EDT MAGNESIUM Routine 01/12/2024 19:44 EDT BASIC METABOLIC PANEL (BMP) Routine 01/12/2024 19:44 EDT BACTERIAL CULTURE, BLOOD Routine 01/12/2024 19:44 EDT PARACENTESIS BEDSIDE Routine 01/12/2024 13:39 EDT Malignant ascites PARACENTESIS BEDSIDE Routine 01/12/2024 13:39 EDT Malignant ascites GLUCOSE 6-PHOSPHATE DEHYDROGENASE ENZYME ACTIVITY,BLD Routine 01/12/2024 12:45 EDT EVAL FOR HOME OXYGEN USE Routine 01/12/2024 5:50 EDT CALCIUM, IONIZED Routine 01/12/2024 5:33 EDT PHOSPHORUS Routine 01/12/2024 5:33 EDT BASIC METABOLIC PANEL (BMP) Routine 01/12/2024 5:33 EDT MAGNESIUM Routine 01/12/2024 5:33 EDT COMPLETE BLOOD COUNT Routine 01/12/2024 5:33 EDT ADULT BRONCHOSCOPY PROCEDURE Routine 01/11/2024 16:53 EDT NON SOUND EFFECTS PERSON/FNA CYTOLOGY Routine 01/11/2024 16:50 EDT DIFFERENTIAL, LAVAGE FLUID Routine 01/11/2024 16:50 EDT PNEUMOCYSTIS JIROVECI, MOLECULAR DETECTION, PCR Routine 01/11/2024 16:50 EDT NOCARDIA CULTURE AND SMEAR Routine 01/11/2024 16:50 EDT AFB CULTURE/SMEAR, OTHER Routine 01/11/2024 16:50 EDT BACTERIAL CULTURE/SMEAR, RESPIRATORY Routine 01/11/2024 16:50 EDT FUNGUS CULTURE/SMEAR Routine 01/11/2024 16:50 EDT BRONCHOSCOPY 01/11/2024 15:[address] of the chest Special Needs IV Sedation FOLATE Add-On 01/11/2024 8:00 EDT VITAMIN B12 Add-On 01/11/2024 8:00 EDT HEPATIC FUNCTION PANEL (ALB,ALK PHOS,ALT,AST,DBIL,T OT WILY,TOT PROT) Add-On 01/11/2024 8:00 EDT BASIC METABOLIC PANEL (BMP) Routine 01/11/2024 8:00 EDT MAGNESIUM Routine 01/11/2024 8:00 EDT COMPLETE BLOOD COUNT Routine 01/11/2024 6:14 EDT BASIC METABOLIC PANEL (BMP) Routine 01/10/2024 17:08 EDT MAGNESIUM Routine 01/10/2024 17:08 EDT FERRITIN Routine 01/10/2024 8:44 EDT TRANSFERRIN SATURATION Routine 01/10/2024 8:44 EDT PROFILE IRON STUDIES (INCLUDES IRON, IBC, AND FERRITIN) Routine 01/10/2024 8:44 EDT BASIC METABOLIC PANEL (BMP) Routine 01/10/2024 8:44 EDT MAGNESIUM Routine 01/10/2024 8:44 EDT FUNGITELL, SERUM Routine 01/10/2024 6:41 EDT COMPLETE BLOOD COUNT Routine 01/10/2024 6:41 EDT CRYPTOCOCCAL ANTIGEN, SERUM Routine 01/10/2024 6:41 EDT TRANSTHORACIC ECHO (TTE) COMPLETE Routine 01/09/2024 16:18 EDT Acute hypoxic respiratory failure (HCC-CMS) ECG REPORT - SCANNED 01/09/2024 13:06 EDT IR PARACENTESIS-RADIOL OGY Routine 01/09/2024 9:59 EDT Other ascites FLUID DIFFERENTIAL Today 01/09/2024 9: 42 EDT Other ascites FLUID CELL COUNT Routine 01/09/2024 9:42 EDT Other ascites FLUID CELL COUNT Routine 01/09/2024 9:42 EDT Other ascites STREPTOCOCCUS PNEUMONIAE ANTIGEN, URINE Routine 01/09/2024 6:20 EDT LEGIONELLA ANTIGEN DETECTION, URINE Routine 01/09/2024 6:20 EDT HN LAB CBC SMEAR REVIEW Today 01/09/2024 6:08 EDT COMPLETE BLOOD COUNT Routine 01/09/2024 6:08 EDT COMPREHENSIVE METABOLIC PANEL (CMP) STAT 01/08/2024 17:10 EDT COMPLETE BLOOD COUNT AND DIFFERENTIAL STAT 01/08/2024 17:10 EDT EXPANDED RESPIRATORY VIRAL PANEL, PCR (DOES NOT INCLUDE INFLUENZA OR RSV) Add-On 01/08/2024 17:10 EDT SARS COV2, FLU A/B, RSV DETECT BY PCR STAT 01/08/2024 17:10 EDT XR CHEST PORTABLE 1 VIEW STAT 01/08/2024 16:57 EDT EKG 12-LEAD STAT 01/08/2024 16:[address] CHEST W CONTRAST STAT 01/05/2024 14:26 EDT Primary malignant neoplasm of breast with metastasis (HCC-CMS) BASIC METABOLIC PANEL (BMP) Routine 01/05/2024 14:25 EDT Other ascites IR PARACENTESIS-RADIOL OGY Routine 01/03/2024 9:15 EDT Other ascites BASIC METABOLIC PANEL (BMP) Routine 12/27/2023 16:55 EDT Other ascites ECG REPORT - SCANNED 12/21/2023 11:19 EDT VITAMIN D (25,OH) Add-On 12/20/2023 11:51 EDT PHOSPHORUS STAT 12/20/2023 11:51 EDT Malignant neoplasm of right female breast, unspecified estrogen receptor status, unspecified site of breast (HCC-CMS) COMPREHENSIVE METABOLIC PANEL (ONCOLOGY USE ONLY-INC MG) STAT 12/20/2023 11:51 EDT Primary malignant neoplasm of breast with metastasis (HCC-CMS) COMPLETE BLOOD COUNT AND DIFFERENTIAL STAT 12/20/2023 11:51 EDT Primary malignant neoplasm of breast with metastasis (HCC-CMS) CA 27.29 STAT 12/20/2023 11:51 EDT Malignant neoplasm of right female breast, unspecified estrogen receptor status, unspecified site of breast (HCC-CMS) IR PARACENTESIS-RADIOL OGY Routine 12/20/2023 9:20 EDT Other ascites 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) [C79.9, C50.919] ANAEROBE CULTURE/SMEAR(INC. AEROBES), OTHER Routine 12/20/2023 8:56 EDT NON SOUND EFFECTS PERSON/FNA CYTOLOGY Routine 12/20/2023 8:55 EDT Other ascites FLUID DIFFERENTIAL Today 12/20/2023 8: 55 EDT FLUID CELL COUNT Routine 12/20/2023 8:55 EDT HEPATITIS C AB W REFLEX TO HCV RNA BY PCR Routine 09/12/2009 14:45 EDT Routine gynecological examination from Last 3 Months or Most Recently Relevant to Health Maintenance Results * CT CHEST W CONTRAST (03/13/2024 8:26 EDT) Anatomical Region Laterality Modality Chest Computed Tomogra phy 03/13/2024 11:2 0 EDT Impressions 03/13/2024 11:20 EDT . 1. ??Further improvement in multifocal groundglass opacities. Minimal residual faint groundglass opacities persist in the left lung. 2. ??Stable appearance of the biopsy-proven malignancy in the left lung and multiple bilateral pulmonary nodules, measuring less than 2 mm. I have personally reviewed the images and the above interpretation and agree with the findings. [id number] Narrative 03/13/2024 11:[address] CHEST W CONTRAST ??03/13/2024 8:08 AM Clinical History/Comments: metastatic BC. History of PJP pneumonia and pneumonitis. Technique: CT scan of the chest with intravenous contrast material was performed. This CT used either dose modulation and/or iterative reconstruction techniques to lower radiation dose. Comparison: Chest CT studies 01/05/2024 and 02/07/2024. Concurrent CT abdomen pelvis 03/13/2024. Findings: Lower neck: Right jugular approach chest port with catheter tip at the superior cavoatrial junction. Mediastinum and mariann (non-vascular): No enlarged mediastinal or hilar lymph nodes. ??The esophagus appears normal. Cardiovascular: Normal cardiac chamber great vessel caliber. No pericardial effusion. Lungs and airways: Patent central airways. Unchanged subpleural left apical 5 mm nodule, and additional sub-2 mm nodules scattered in both lungs. No new nodule identified. When compared to prior examination, there is further improvement in multifocal groundglass opacities, with very minimal residual groundglass opacity noted in the left lower and upper lobe. Resolution of peribronchovascular opacification involving the right middle lobe. Perifissural oval nodules are most consistent with nodes. Pleura: No abnormalities. Upper abdomen (limited to upper abdomen, not optimized for abdominal imaging): A separate CT of the abdomen or abdomen and pelvis was performed on the same date. ??Please see that report. Chest wall soft tissues: Bilateral breast prostheses. Paucity of subcutaneous fat involving the chest wall, otherwise no significant finding. Bones: Multilevel degenerative disc disease with Schmorl's nodes associated with multiple endplates. Old bilateral rib fractures. Resulting Agency Comment [id number] Procedure Note Mallorie Andrews MD - 03/13/2024 CT CHEST W CONTRAST 03/13/2024 8:08 AM Clinical History/Comments: metastatic BC. History of PJP pneumonia and pneumonitis. Technique: CT scan of the chest with intravenous contrast material was performed. This CT used either dose modulation and/or iterative reconstructiontechniques to lower radiation dose. Comparison: Chest CT studies 01/05/2024 and 02/07/2024. Concurrent CT abdomen [id number]/2024. Findings: Lower neck: Right jugular approach chest port with catheter tip at thesuperior cavoatrial junction. Mediastinum and mariann (non-vascular): No enlarged mediastinal or hilarlymph nodes. The esophagus appears normal. Cardiovascular: Normal cardiac chamber great vessel caliber. Nopericardial effusion. Lungs and airways: Patent central airways. Unchanged subpleural leftapical 5 mm nodule, and additional sub-2 mm nodules scattered in bothlungs. No new nodule identified. When compared to prior examination, thereis further improvement in multifocal groundglass opacities, with veryminimal residual groundglass opacity noted in the left lower and upperlobe. Resolution of peribronchovascular opacification involving the rightmiddle lobe. Perifissural oval nodules are most consistent with nodes. Pleura: No abnormalities. Upper abdomen (limited to upper abdomen, not optimized for abdominalimaging): A separate CT of the abdomen or abdomen and pelvis was performedon the same date. Please see that report. Chest wall soft tissues: Bilateral breast prostheses. Paucity ofsubcutaneous fat involving the chest wall, otherwise no significantfinding. Bones: Multilevel degenerative disc disease with Schmorl's nodesassociated with multiple endplates. Old bilateral rib fractures. IMPRESSION . 1. Further improvement in multifocal groundglass opacities. Minimalresidual faint groundglass opacities persist in the left lung. 2. Stable appearance of the biopsy-proven malignancy in the left lung andmultiple bilateral pulmonary nodules, measuring less than 2 mm. I have personally reviewed the images and the above interpretation andagree with the findings. [id number] Augustina Colin MD PhD IMG CT ORDERABLES * CT ABDOMEN PELVIS W CONTRAST (03/13/2024 8:26 EDT) Anatomical Region Laterality Modality Body, Abdomen, Pelvis, Abdomen and Pelvis Computed Tomography 03/13/2024 16:5 5 EDT Impressions 03/13/2024 16:55 EDT Stable to slight decrease in size and diminished enhancement of numerous hepatic metastases. 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 Interval decrease in volume of ascites. Interval decrease in conspicuity of mucosal hyperenhancement of the small bowel which could be explained by infectious enteritis or be medication related. Cholelithiasis without cholecystitis. 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 [id number] Narrative 03/13/2024 16:[address] ABDOMEN PELVIS W CONTRAST ??03/13/2024 8:08 AM Signs and Symptoms/Comments: metastatic BC Technique: CT of the abdomen and pelvis was performed following the administration of intravenous contrast. This CT used either dose modulation and/or iterative reconstruction techniques to lower radiation dose. Comparison: Most recent comparison to CT on pelvis on 12/12/2023 with additional priors for comparison as reported. Findings: Lower chest: Please see same-day chest CT for intrathoracic findings. Liver: Stable to slight decrease in size and diminished enhancement of numerous hepatic metastases. For example in segment 4/8 (501:27) metastasis now measures 1 x 1.2 cm, previously 1.3 x 1.3 cm and within the right hepatic lobe (5 1:67) lesion now measures 2.1 x 3.0 cm, previously 2.3 x 3.3 cm by my measurement. No concerning new liver lesions present. Unchanged nodular capsular contour of the liver. Gallbladder: Partially decompressed with intermediate high attenuation material layering within the gallbladder fundus compatible with small stones. Bile ducts: Nondilated. Spleen: Heterogeneous enhancement of the spleen limits evaluation for intrasplenic lesions. Pancreas: Normal contour and enhancement of the pancreas. The main pancreatic duct is not dilated. Adrenal glands: No adrenal lesion present. Kidneys, ureters, bladder: Symmetric enhancement of the kidneys. No hydronephrosis present. No renal or ureteral calculi present. Scattered intracortical low-attenuation foci are too small to characterize but similar in size and number compared to the prior exam. The bladder is partially distended with urine without focal wall thickening. Reproductive organs: The uterus is normal in size and morphology given patient's age. As on prior exam, there is a calcified fibroid measuring 2.6 cm in diameter. No adnexal mass present. Bowel: There is a moderate amount of stool throughout the colon. No dilated small or large bowel present. There is slight interval decrease in conspicuity of the mucosal hyperenhancement of the small bowel as reported on prior exam. Peritoneal cavity: No intraperitoneal free air. Small volume ascites present which is decreased in volume compared to the prior exam. Lymph nodes: No pathologically enlarged lymph nodes present. Vascular: The abdominal aorta is not aneurysmal. The IVC is patent. The portal vein and hepatic veins are patent. Likely small esophageal and gastric varices as well as recanalized umbilical vein. Abdominal wall: No bowel-containing ventral hernia. Musculoskeletal: Unchanged healed posterior left ninth rib fracture. Prior posterior decompression and fusion with by pedicular screws and rods from L3-S1 without complication. An osteolytic lesion within the right iliac crest measuring 3.5 cm in long axial dimension is unchanged. No new suspicious osseous lesions are present. Court Transcriber: No additional findings. Resulting Agency Comment [id number] Procedure Note Tylor Melendez MD - 03/13/2024 CT ABDOMEN PELVIS W CONTRAST 03/13/2024 8:08 AM Signs and Symptoms/Comments: metastatic BC Technique: CT of the abdomen and pelvis was performed following theadministration of intravenous contrast. This CT used either dose modulation and/or iterative reconstructiontechniques to lower radiation dose. Comparison: Most recent comparison to CT on pelvis on 12/12/2023 withadditional priors for comparison as reported. Findings: Lower chest: Please see same-day chest CT for intrathoracic findings. Liver: Stable to slight decrease in size and diminished enhancement ofnumerous hepatic metastases. For example in segment 4/8 (501:27)metastasis now measures 1 x 1.2 cm, previously 1.3 x 1.3 cm and within theright hepatic lobe (5 1:67) lesion now measures 2.1 x 3.0 cm, previously2.3 x 3.3 cm by my measurement. No concerning new liver lesions present.Unchanged nodular capsular contour of the liver. Gallbladder: Partially decompressed with intermediate high attenuationmaterial layering within the gallbladder fundus compatible with smallstones. Bile ducts: Nondilated. Spleen: Heterogeneous enhancement of the spleen limits evaluation forintrasplenic lesions. Pancreas: Normal contour and enhancement of the pancreas. The mainpancreatic duct is not dilated. Adrenal glands: No adrenal lesion present. Kidneys, ureters, bladder: Symmetric enhancement of the kidneys. Nohydronephrosis present. No renal or ureteral calculi present. Scatteredintracortical low- attenuation foci are too small to characterize butsimilar in size and number compared to the prior exam. The bladder ispartially distended with urine without focal wall thickening. Reproductive organs: The uterus is normal in size and morphology givenpatient's age. As on prior exam, there is a calcified fibroid measuring2.6 cm in diameter. No adnexal mass present. Bowel: There is a moderate amount of stool throughout the colon. Nodilated small or large bowel present. There is slight interval decrease inconspicuity of the mucosal hyperenhancement of the small bowel as reportedon prior exam. Peritoneal cavity: No intraperitoneal free air. Small volume ascitespresent which is decreased in volume compared to the prior exam. Lymph nodes: No pathologically enlarged lymph nodes present. Vascular: The abdominal aorta is not aneurysmal. The IVC is patent. Theportal vein and hepatic veins are patent. Likely small esophageal andgastric varices as well as recanalized umbilical vein. Abdominal wall: No bowel-containing ventral hernia. Musculoskeletal: Unchanged healed posterior left ninth rib fracture. Priorposterior decompression and fusion with by pedicular screws and rods fromL3-S1 without complication. An osteolytic lesion within the right iliaccrest measuring 3.5 cm in long axial dimension is unchanged. No newsuspicious osseous lesions are present. Court Transcriber: No additional findings. IMPRESSION Stable to slight decrease in size and diminished enhancement of numeroushepatic metastases. 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 Interval decrease in volume of ascites. Interval decrease in conspicuity of mucosal hyperenhancement of the smallbowel which could be explained by infectious enteritis or be medicationrelated. Cholelithiasis without cholecystitis. 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 [id number] Augustina Colin MD PhD IMG CT ORDERABLES * T CELL SUBSETS (03/13/2024 7:41 EDT) % CD3 79 56 - 84 % 03/13/2024 13:43 [facility] % CD4 63 31 - 64 % 03/13/2024 13:43 [facility] % CD8 16 9 - 39 % 03/13/2024 13:43 [facility] Absolute CD3 1,284 840 - 2,669 Cells/uL 03/13/2024 13:43 [facility] Absolute CD4 1,030 488 - 1,734 Cells/uL 03/13/2024 13:43 [facility] Absolute CD8 262 154 - 1,097 Cells/uL 03/13/2024 13:43 [facility] 8 Ratio 3.93 >=0.90 03/13/2024 13:43 [facility] Blood VENOUS BLOOD / Unknown Venipuncture / Unknown 03/13/2024 7:41 EDT 03/13/2024 8:01 EDT Errol Ferrell MD IMMUNOLOGY AND S EROLOGY ORDERABLES [facility] [address], [place] [id number] * (ABNORMAL) COMPLETE BLOOD COUNT AND DIFFERENTIAL (03/13/2024 7:41 EDT) Only the most recent of7 resultswithin the time period is included. Pathologist [facility] WBC 9.68 4.00 - 12.40 K/cmm 03/13/2024 8:06 [facility] RBC 3.72(L) 3.86 - 5.04 M/cmm 03/13/2024 8:06 [facility] Hemoglobin 13.0 11.6 - 15.2 g/dL 03/13/2024 8:06 [facility] HCT 38.3 34.9 - 44.4 % 03/13/2024 8:06 [facility] MCV 103(H) 81 - 98 fL 03/13/2024 8:06 [facility] MCH 34.9(H) 26.7 - 33.3 pg 03/13/2024 8:06 [facility] MCHC 33.9 32.1 - 35.9 g/dL 03/13/2024 8:06 [facility] RDW-CV 14.9(H) <14.7 % 03/13/2024 8:06 [facility] RDW-SD 56.4(H) <50.4 fl 03/13/2024 8:06 [facility] PLT 228 141 - 377 K/cmm 03/13/2024 8:06 [facility] MPV 10.3 9.5 - 12.7 fL 03/13/2024 8:06 [facility] % Neutrophils 69.6 Not Indicated % 03/13/2024 8:06 [facility] % Lymphocytes 14.2 Not Indicated % 03/13/2024 8:06 [facility] % Monocytes 13.7 Not Indicated % 03/13/2024 8:06 [facility] % Eosinophils 1.3 Not Indicated % 03/13/2024 8:06 [facility] % Basophils 0.5 Not Indicated % 03/13/2024 8:06 [facility] % Immature Grans 0.7 Not Indicated % 03/13/2024 8:06 [facility] Absolute Neutrophils 6.73 2.20 - 8.85 K/cmm 03/13/2024 8:06 [facility] Absolute Lymphocytes 1.37 1.09 - 3.30 K/cmm 03/13/2024 8:06 [facility] Absolute Monocytes 1.33(H) 0.10 - 0.80 K/cmm 03/13/2024 8:06 [facility] Absolute Eosinophils 0.13 0.03 - 0.61 K/cmm 03/13/2024 8:06 [facility] ABS Basophils 0.05 0.01 - 0.11 K/cmm 03/13/2024 8:06 [facility] Absolute Immature Grans 0.07(H) 0.00 - 0.06 K/cmm 03/13/2024 8:[address] [facility] Type of Differential: Auto 03/13/2024 8:06 [facility] Blood VENOUS BLOOD / Unknown Venipuncture / Unknown 03/13/2024 7:41 EDT 03/13/2024 7:52 EDT Augustina Colin MD PhD PACKAGES & DNA PROBE ORDERABLES [facility] [address] [place] [address] * (ABNORMAL) COMPREHENSIVE METABOLIC PANEL (ONCOLOGY USE ONLY-INC MG) (03/13/2024 7:38 EDT) Only the most recent of4 resultswithin the time period is included. Sodium 132(L) 136 - 145 mmol/L 03/13/2024 8:48 [facility] Potassium 4.3 3.5 - 5.0 mmol/L 03/13/2024 8:48 [facility] Chloride 94(L) 96 - 110 mmol/L 03/13/2024 8:48 [facility] CO2 Total 26 22 - 32 mmol/L 03/13/2024 8:48 [facility] Glucose 135(H) 70 - 99 mg/dl 03/13/2024 8:48 [facility] BUN 24 10 - 26 mg/dL 03/13/2024 8:48 [facility] Creatinine 0.70 0.52 - 1.04 mg/dL 03/13/2024 8:48 [facility] eGFR 98 >60 mL/min/1.7 3m2 03/13/2024 8:48 [facility] Total Protein 7.5 6.3 - 8.2 g/dL 03/13/2024 8:48 [facility] Albumin 3.6 3.4 - 4.9 g/dL 03/13/2024 8:[address] [facility] Alkaline Phosphatase 421(H) 38 - 126 U/L 03/13/2024 8:[address] [facility] AST 61(H) 15 - 46 U/L 03/13/2024 8:[address] [facility] ALT 36(H) <35 U/L 03/13/2024 8:[address] [facility] Bilirubin, Total 1.3 <1.4 mg/dL 03/13/20 8:[address] [facility] Calcium 10.1 8.5 - 10.5 mg/dL 03/13/2024 8:[address] [facility] Magnesium 2.1 1.7 - 2.8 mg/dL 03/13/2024 8:[address] [facility] Albumin/Globulin Ratio 0.9(L) 1.0 - 2.5 03/13/2024 8:[address] [facility] Anion Gap 12 5 - 14 mmol/L 03/13/2024 8:[address] [facility] Blood VENOUS BLOOD / Unknown Venipuncture / Unknown 03/13/2024 7:38 EDT 03/13/2024 7:52 EDT Augustina Colin MD PhD CHEMISTRY & BLOOD GA S ORDERABLES [facility] [address], [place] [id number] * (ABNORMAL) CA 27.29 (03/13/2024 7:38 EDT) Only the most recent of5 resultswithin the time period is included. CA 27.29 128.0(H) <38.0 U/mL 03/14/2024 11:[address] [facility] Comment: NOTE: Serum CA 27.29 concentration should not be interpreted as absolute evidence for the presence or absence of malignant disease. Assayed on Siemens ADVIA FREEjitaur XPT using chemiluminescent technology. ??Values obtained by using different assay methods cannot be used interchangeably. Blood VENOUS BLOOD / Unknown Venipuncture / Unknown 03/13/2024 7:38 EDT 03/13/2024 7:52 EDT Alisson Carreon MD CHEMISTRY & BLOOD G ORDERABLES Performing Organization Address [facility] Co de Phone Number [facility] [address], [place] [address] * PHOSPHORUS (03/13/2024 7:38 EDT) Only the most recent of7 resultswithin the time period is included. Phosphorus 4.1 2.5 - 4.5 mg/dL 03/16/2024 15:[address] [facility] Blood VENOUS BLOOD / Unknown Venipuncture / Unknown 03/13/2024 7:38 EDT 03/13/2024 7:52 EDT Alisson Carreon MD CHEMISTRY & BLOOD G ORDERABLES Performing Organization Address [facility] Co de Phone Number [facility] [address], [place] [phone] * (ABNORMAL) BASIC METABOLIC PANEL (BMP) (03/01/2024 15:56 EDT) Only the most recent of16 resultswithin the time period is included. Sodium 133(L) 136 - 145 mmol/L 03/01/2024 16:39 EDT [facility] Potassium 3.8 3.5 - 5.1 mmol/L 03/01/2024 16:39 T [facility] Chloride 96 96 - 107 mmol/L 03/01/2024 16:39 T [facility] CO2 Total 32 21 - 32 mmol/L 03/01/2024 16:39 [facility] Anion Gap 5 5 - 14 mmol/L 03/01/2024 16:39 T [facility] Glucose 142(H) 70 - 99 mg/dl 03/01/2024 16:39 T [facility] Calcium 9.6 8.5 - 10.1 mg/dL 03/01/2024 16:39 EDT [facility] BUN 19 7 - 25 mg/dL 03/01/2024 16:39 EDT [facility] Creatinine 0.94 0.55 - 1.02 mg/dL 03/01/2024 16:39 EDT [facility] eGFR 69 >60 mL/min/1.73 m2 03/01/2024 16:39 EDT [facility] Blood VENOUS BLOOD / Unknown Venipuncture / Unknown 03/01/2024 15:56 EDT 03/01/2024 16:03 EDT Hugo Vergara MD PhD CHEMISTRY & BLO OD GAS ORDERABLES [facility] [address] [place] [address] * IR PARACENTESIS-RADIOLOGY (02/22/2024 14:50 EDT) Anatomical Region Laterality Modality N/A X-Ray Angiograph y 02/22/2024 15:5 7 EDT Impressions 02/22/2024 15:57 EDT Successful, uncomplicated paracentesis using sonographic guidance yielding 1.2 L fluid. ?? LUNA Arguelles, PANitaC Interventional Radiology I have personally reviewed the images and the above interpretation and agree with the findings. [id number] Narrative 02/22/2024 15:57 EDT IR PARACENTESIS-RADIOLOGY ??02/22/2024 2:00 PM Clinical History/Comments: ascites; breast cancer Technique and Findings: After obtaining informed consent, sonographic guidance was used to gain percutaneous access to the abdominal ascites collection. All ultrasound images were recorded. A drainage catheter was advanced and a total of ??1.2 liters fluid was drained without complication. Finally, the catheter was removed and the puncture site was sterilely bandaged. The patient tolerated procedure well without complication. Resulting Agency Comment [id number] Procedure Note Johnson Kwon MD - 02/22/2024 IR PARACENTESIS-RADIOLOGY 02/22/2024 2:00 PM Clinical History/Comments: ascites; breast cancer Technique and Findings: After obtaining informed consent, sonographic guidance was used to gainpercutaneous access to the abdominal ascites collection. All ultrasoundimages were recorded. A drainage catheter was advanced and a total of 1.2liters fluid was drained without complication. Finally, the catheter wasremoved and the puncture site was sterilely bandaged. The patienttolerated procedure well without complication. IMPRESSION Successful, uncomplicated paracentesis using sonographic guidance yielding1.2 L fluid. LUNA Arguelles, PANitaC Interventional Radiology I have personally reviewed the images and the above interpretation andagree with the findings. [id number] Hugo Vergara MD PhD IMG IR ORDERABL ES * MISCELLANEOUS TEST, NON ODELL (02/07/2024 17:55 EDT) Test Name [place] [id number] CCx 02/20/2024 9:52 EDT [facility] Blood VENOUS BLOOD / Unknown Venipuncture / Unknown 02/07/2024 17:55 EDT 02/07/2024 17:55 EDT Narrative [facility] - 02/20/2024 9:52 EDT See scanned/supplementary report. Alisson Carreon MD CHEMISTRY & BLOOD G ORDERABLES [facility] [address] [place], [place] [id number] * IR PARACENTESIS-RADIOLOGY (02/07/2024 14:11 EDT) Anatomical Region Laterality Modality N/A X-Ray Angiograph y 02/07/2024 15:3 0 EDT Impressions 02/07/2024 15:30 EDT Successful, uncomplicated paracentesis using sonographic guidance yielding 1.25 L of turbid fluid. Samuel Noble PA-C The procedure was performed by TANK Garcia, in interventional radiology. Direct supervision was provided by the attending physician, Dr. Palumbo. I have personally reviewed the images and the above interpretation and agree with the findings. [id number] Narrative 02/07/2024 15:30 EDT IR PARACENTESIS-RADIOLOGY ??02/07/2024 1:00 PM Clinical History/Comments: ascites Technique and Findings: After obtaining informed consent, sonographic guidance was used to gain percutaneous access to the abdominal ascites collection. All ultrasound images were recorded. A drainage catheter was advanced and a total of 1.25 liters fluid was drained without complication. Finally, the catheter was removed and the puncture site was sterilely bandaged. The patient tolerated procedure well without complication. Valdo Morris, was supervised in the performance of this procedure. Resulting Agency Comment [id number] Procedure Note Guerrero Palumbo MD - 02/07/2024 IR PARACENTESIS-RADIOLOGY 02/07/2024 1:00 PM Clinical History/Comments: ascites Technique and Findings: After obtaining informed consent, sonographic guidance was used to gainpercutaneous access to the abdominal ascites collection. All ultrasoundimages were recorded. A drainage catheter was advanced and a total of 1.25liters fluid was drained without complication. Finally, the catheter wasremoved and the puncture site was sterilely bandaged. The patienttolerated procedure well without complication. Valdo Morris, was supervised in the performance of thisprocedure. IMPRESSION Successful, uncomplicated paracentesis using sonographic guidance yielding1.25 L of turbid fluid. Samuel Noble PA-C The procedure was performed by TANK Garcia, in interventionalradiology. Direct supervision was provided by the attending physician, . I have personally reviewed the images and the above interpretation andagree with the findings. [id number] Hugo Vergara MD PhD IMG IR ORDERABL ES * CT CHEST WO CONTRAST (02/07/2024 8:54 EDT) Anatomical Region Laterality Modality Chest Computed Tomogra phy 02/07/2024 10:4 8 EDT Impressions 02/07/2024 10:48 EDT Known metastatic breast cancer with involvement of the lung, liver and cervical nodes. Interval improvement of bilateral groundglass opacities with residual groundglass opacities in the left upper lobe, and bilateral lower lobes. The imaging findings may represent incomplete resolution of known pneumonia. However, underlying inflammatory pneumonitis may have a similar distribution and difficult to entirely exclude. [id number] Narrative 02/07/2024 10:[address] CHEST WO CONTRAST ??02/07/2024 8:47 AM Clinical History/Comments: Prior to resuming treatment, needs repeat CT chest to establish new baseline lung parenchyma; Breast cancer, invasive, stage IV, initial workup; Prior to resuming treatment, needs repeat CT chest to establish new baseline lung parenchyma.History of metastatic disease with involvement of the epidermis and dermis of the right upper chest, left cervical node and hepatic metastases. Treatment with Enhertu. ??History of PJP pneumonia in December 2023. Technique: CT scan of the chest was performed without contrast material. Thin section reconstructions were performed. This CT used either dose modulation and/or iterative reconstruction techniques to lower radiation dose. Comparison: January 05, 2024 and November 09, 2023 Findings: Lower neck: Normal. There is a tunneled catheter in the right chest wall with catheter tip terminating in the right atrium. Mediastinum and mariann (non-vascular): No enlarged mediastinal or hilar lymph nodes. ??The esophagus appears normal. Cardiovascular: Heart size is normal. There is no pericardial effusion.. Lungs and airways: Subpleural lung nodule in the left upper lobe is stable since the immediate prior study. Patient has biopsy-proven metastatic disease in the lung. When compared to the prior examination the groundglass opacities noted bilaterally, left greater than right have improved. There is now residual groundglass opacities in the left upper lobe and to lesser extent left and right lower lobes. There is peribronchovascular airspace opacification in the right middle lobe which is linear in configuration on the sagittal views, most consistent with atelectasis. Airways are patent. Pleura: There is no effusion.. Upper abdomen (limited to upper abdomen, not optimized for abdominal imaging): Patient has known metastatic disease to the live,. There is a low-attenuation mass in the right lobe. Liver is diffusely heterogeneous, with capsular retraction. Ascites is present. Overall there is no change in appearance of the liver, when accounting for noncontrast technique. Chest wall soft tissues: No abnormalities in the chest wall soft tissues. Bilateral breast implants are present. Subtle asymmetric fat stranding in the left axilla is stable. Bones: Healed fractures of the lateral left second and ninth ribs. There is a healed fracture of the posterior right sixth rib. Resulting Agency Comment [id number] Procedure Note Mallorie Andrews MD - 02/07/2024 CT CHEST WO CONTRAST 02/07/2024 8:47 AM Clinical History/Comments: Prior to resuming treatment, needs repeat CT chest to establish newbaseline lung parenchyma; Breast cancer, invasive, stage IV, initialworkup; Prior to resuming treatment, needs repeat CT chest to establishnew baseline lung parenchyma.History of metastatic disease withinvolvement of the epidermis and dermis of the right upper chest, leftcervical node and hepatic metastases. Treatment with Enhertu. History ofPJP pneumonia in December 2023. Technique: CT scan of the chest was performed without contrast material. Thin sectionreconstructions were performed. This CT used either dose modulation and/or iterative reconstructiontechniques to lower radiation dose. Comparison: January 05, 2024 and November 09, 2023 Findings: Lower neck: Normal. There is a tunneled catheter in the right chest wallwith catheter tip terminating in the right atrium. Mediastinum and mariann (non-vascular): No enlarged mediastinal or hilarlymph nodes. The esophagus appears normal. Cardiovascular: Heart size is normal. There is no pericardial effusion.. Lungs and airways: Subpleural lung nodule in the left upper lobe is stablesince the immediate prior study. Patient has biopsy-proven metastaticdisease in the lung. When compared to the prior examination the groundglass opacities notedbilaterally, left greater than right have improved. There is now residualgroundglass opacities in the left upper lobe and to lesser extent left andright lower lobes. There is peribronchovascular airspace opacification in the right middlelobe which is linear in configuration on the sagittal views, mostconsistent with atelectasis. Airways are patent. Pleura: There is no effusion.. Upper abdomen (limited to upper abdomen, not optimized for abdominalimaging): Patient has known metastatic disease to the live,. There is alow-attenuation mass in the right lobe. Liver is diffusely heterogeneous,with capsular retraction. Ascites is present. Overall there is no changein appearance of the liver, when accounting for noncontrast technique. Chest wall soft tissues: No abnormalities in the chest wall soft tissues.Bilateral breast implants are present. Subtle asymmetric fat stranding inthe left axilla is stable. Bones: Healed fractures of the lateral left second and ninth ribs. Thereis a healed fracture of the posterior right sixth rib. IMPRESSION Known metastatic breast cancer with involvement of the lung, liver andcervical nodes. Interval improvement of bilateral groundglass opacities with residualgroundglass opacities in the left upper lobe, and bilateral lower lobes.The imaging findings may represent incomplete resolution of knownpneumonia. However, underlying inflammatory pneumonitis may have a similardistribution and difficult to entirely exclude. [id number] Pavan Bianchi MD IMG CT ORDERABLES * ORDERS - SCANNED (02/01/2024 15:26 EDT) 02/01/2024 15:2 6 EDT Scan 2 [employer] Att[employer] ADMISSION ORDERABLE S * TRANSTHORACIC ECHO (TTE) LIMITED W/DOPPLER W/CF NO CONTRAST (01/31/2024 9:43 EDT) LV Diastolic Volume 58 mL MERGE [facility]IO LV Systolic Volume 27 mL [facility] LV ejection fraction, 1-p A4C 59 % MER[facility]IO LV ejection fraction, 1-p A2C 57 % MER[facility]IO EF 61 % [facility] LV ID, ES, PLAX 2.7 2.1 - 4.0 cm MERGE [facility]IO LV PW thickness, ED, PLAX 0.8 0.6 - 1.1 cm MER[facility]IO LV ID, ED, PLAX 3.7 3.5 - 6.0 cm MER[facility]IO LV end-diastolic volume, 1-p A4C 88 ml [facility] LV end diastolic volume 1-p A2C 52 ml [facility] IVS thickness, ED, PLAX 0.7 cm MERGE C[facility]IO Anatomical Region Laterality Modality Ultrasound Narrative 01/31/2024 10:03 EDT ?Left??Ventricle: The left ventricular cavity was normal in size. Left ventricular systolic function was normal with an ejection fraction of 55-60%. Left ventricular diastolic parameters were normal. Left ventricular wall thickness was normal. Left ventricular wall motion was normal; there were no regional wall motion abnormalities. Global longitudinal strain was normal. . ?Right??Ventricle: The right ventricular cavity was normal in size. Right ventricular systolic function was normal. ?Pulmonic??Artery: Pulmonary systolic pressure was estimated to be 20 mmHg + right atrial pressure. ?IVC/SVC: The inferior vena cava was normal in size. Left Ventricle The left ventricular cavity was normal in size. Left ventricular systolic function was normal with an ejection fraction of 55-60%. Left ventricular diastolic parameters were normal. Left ventricular wall thickness was normal. Left ventricular wall motion was normal; there were no regional wall motion abnormalities. Global longitudinal strain was normal. . Right Ventricle The right ventricular cavity was normal in size. Right ventricular systolic function was normal. Left Atrium The left atrium was normal in size. Right Atrium The right atrium was normal in size. IVC/SVC The inferior vena cava was normal in size. Mitral Valve Mitral valve structure was normal. There was trace mitral regurgitation. There was no significant mitral valve stenosis. Tricuspid Valve Tricuspid valve structure was normal. There was mild tricuspid valve regurgitation. There was no tricuspid valve stenosis. Pericardium A trivial pericardial effusion was identified circumferential to the heart. Pulmonic Artery Pulmonary systolic pressure was estimated to be 20 mmHg + right atrial pressure. Study Details Study status: Routine. Transthoracic echocardiography. M-Mode, complete 2D, complete spectral Doppler, and color Doppler.The study was interpreted by [facility]. Pertinent images and digital data are archived for permanent storage and are available for subsequent review. Scanning was performed from the apical, parasternal, subcostal and suprasternal acoustic windows. Overall the study quality was adequate. Images were obtained using cardiac ultrasound machine EPIQ #[id number]. Alisson Carreon MD CARDIAC ECHO ORDERA BLES * IR PARACENTESIS-RADIOLOGY (01/31/2024 8:33 EDT) Anatomical Region Laterality Modality N/A X-Ray Angiograph y 01/31/2024 11:4 4 EDT Impressions 01/31/2024 11:44 EDT Successful, uncomplicated paracentesis using sonographic guidance yielding 2 L fluid. ?? LUNA Arguelles PA-C Interventional Radiology The procedure was performed by TANK Arguelles, in interventional radiology. Direct supervision was provided by the attending physician, Dr. Palumbo. I have personally reviewed the images and the above interpretation and agree with the findings. [id number] Narrative 01/31/2024 11:44 EDT IR PARACENTESIS-RADIOLOGY ??01/31/2024 7:42 AM Clinical History/Comments: ascites Technique and Findings: After obtaining informed consent, sonographic guidance was used to gain percutaneous access to the abdominal ascites collection. All ultrasound images were recorded. A drainage catheter was advanced and a total of ??2 liters fluid was drained without complication. Finally, the catheter was removed and the puncture site was sterilely bandaged. The patient tolerated procedure well without complication. Resulting Agency Comment [id number] Procedure Note Guerrero Palumbo MD - 01/31/2024 IR PARACENTESIS-RADIOLOGY 01/31/2024 7:42 AM Clinical History/Comments: ascites Technique and Findings: After obtaining informed consent, sonographic guidance was used to gainpercutaneous access to the abdominal ascites collection. All ultrasoundimages were recorded. A drainage catheter was advanced and a total of 2liters fluid was drained without complication. Finally, the catheter wasremoved and the puncture site was sterilely bandaged. The patienttolerated procedure well without complication. IMPRESSION Successful, uncomplicated paracentesis using sonographic guidance yielding2 L fluid. LUNA Arguelles PA-C Interventional Radiology The procedure was performed by TANK Arguelles, in interventionalradiology. Direct supervision was provided by the attending physician, . I have personally reviewed the images and the above interpretation andagree with the findings. [id number] Quita Babb PA-C IMG IR ORDERAB LES * IR PARACENTESIS-RADIOLOGY (01/25/2024 12:00 EDT) Anatomical Region Laterality Modality N/A X-Ray Angiograph y 01/25/2024 15:3 8 EDT Impressions 01/25/2024 15:38 EDT Successful removal of 1.5 liters of ascitic fluid from the abdomen. [id number] Narrative 01/25/2024 15:38 EDT Ultrasound-guided paracentesis; 01/25/2024 at 1100 hours History: Malignant ascites. Please perform therapeutic paracentesis. Description: Written consent was obtained. The patient was prepped and draped in sterile fashion. A time-out was performed, confirming the correct patient, the correct procedure, and the correct site. ??1% lidocaine was used for local analgesia. Continuous monitoring of the patient's heart rate, blood pressure, respiratory rate, and oxygen saturation occurred. Utilizing sterile technique, local lidocaine anesthesia, and real-time ultrasound guidance, a 5 British sheath needle was advanced into the pocket of ascites within the right lower quadrant of the abdomen. Then, 1.5 liters of clear yellow ascites was aspirated from the abdomen. The needle was removed without difficulty. ??Ultrasound images were recorded. The fluid was sent to the laboratory for requested studies. The patient tolerated the procedure well. No complication occurred. The estimated blood loss during this procedure was 0. Resulting Agency Comment [id number] Procedure Note Mustapha Nguyen MD - 01/25/2024 Ultrasound-guided paracentesis; 01/25/2024 at 1100 hours History: Malignant ascites. Please perform therapeutic paracentesis. Description: Written consent was obtained. The patient was prepped anddraped in sterile fashion. A time-out was performed, confirming thecorrect patient, the correct procedure, and the correct site. 1%lidocaine was used for local analgesia. Continuous monitoring of thepatient's heart rate, blood pressure, respiratory rate, and oxygensaturation occurred. Utilizing sterile technique, local lidocaine anesthesia, and real-timeultrasound guidance, a 5 British sheath needle was advanced into the pocketof ascites within the right lower quadrant of the abdomen. Then, 1.5liters of clear yellow ascites was aspirated from the abdomen. The needlewas removed without difficulty. Ultrasound images were recorded. Thefluid was sent to the laboratory for requested studies. The patient tolerated the procedure well. No complication occurred. Theestimated blood loss during this procedure was 0. IMPRESSION Successful removal of 1.5 liters of ascitic fluid from the abdomen. [id number] Jackie Juan MD IMG IR ORDERABLES * NON SOUND EFFECTS PERSON/FNA CYTOLOGY (01/25/2024 11:03 EDT) Only the most recent of3 resultswithin the time period is included. Note to Patient The following pathology results have been interpreted by your pathologist and may be available to you before your health provider has had the opportunity to review them. Please allow time for your provider to receive these results and explore management options, if applicable. 01/26/2024 17:05 [facility] Final Diagnosis A. ASCITIC FLUID, CYTOLOGIC EVALUATION: - Negative for malignant cells. - Reactive mesothelial cells and histiocytes in a background of mixed inflammation. 01/26/2024 17:05 [facility] Diagnosis Comment Prior ascitic fluids ([id number] and [id number]) are reviewed and shows similar reactive mesothelial cells and histiocytes. Hearing Impaired Teacher slides of this case were reviewed at the intradepartmental consultation conference. 01/26/2024 17:05 [facility] Attestation There was significant resident/fellow involvement in the diagnostic evaluation of this case. By the signature below, the attending physician certifies that they have personally conducted a gross and/or microscopic examination of the described specimens and rendered or confirmed the above diagnosis. 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 50cc's of cloudy yellow fluid were received and processed by selective cellular enhancement technique. 01/26/2024 17:05 [facility] Resident/Fell ow: Kimberly Tong DO 01/26/2024 17:05 [facility] Performing Lab [facility] 01/26/2024 17:05 [facility] Scanned Images 01/26/2024 17:05 [facility] Fluid ASCITIC FLUID / Unknown 01/25/2024 11:03 EDT 01/25/2024 13:48 EDT Hugo Vergara MD PhD PATHOLOGY ORDER ANUSHA Performing Organization Address [facility] Co de Phone Number [facility] [address] [place] [address] * TOTAL PROTEIN, FLUID (01/25/2024 11:02 EDT) Total Protein, Fluid <2.0 See Note g/dL 01/25/2024 12:[address] [facility] Comment: Ascitic fluid Reference range unavailable. Clinical correlation required. This Fluid Total Protein assay was developed and its performance characteristics determined by [facility]. ??It has not been cleared or approved by the [place] Food and Drug Administration. Fluid ASCITIC FLUID / Unknown 01/25/2024 11:02 EDT 01/25/2024 12:08 EDT Hugo Vergara MD PhD GEN LAB UNIT CO LLECT ORDERABLES Performing Organization Address [facility] Co de Phone Number [facility] [address] [place] [address] * (ABNORMAL) COMPLETE BLOOD COUNT (01/19/2024 6:08 EDT) Only the most recent of8 resultswithin the time period is included. WBC 11.96 4.00 - 12.40 K/cmm 01/19/2024 6:[address] [facility] RBC 2.25(L) 3.86 - 5.04 M/cmm 01/19/2024 6:[address] [facility] Hemoglobin 8.3(L) 11.6 - 15.2 g/dL 01/19/2024 6:[address] [facility] HCT 25.8(L) 34.9 - 44.4 % 01/19/2024 6:[address] [facility] MCV 115(H) 81 - 98 fL 01/19/2024 6:[address] [facility] MCH 36.9(H) 26.7 - 33.3 pg 01/19/2024 6:[address] [facility] MCHC 32.2 32.1 - 35.9 g/dL 01/19/2024 6:[address] [facility] RDW-CV 24.4(H) <14.7 % 01/19/2024 6:[address] [facility] RDW-SD 101.2(H) <50.4 fl 01/19/2024 6:22 [facility] PLT 127(L) 141 - 377 K/cmm 01/19/2024 6:[address] [facility] MPV 10.5 9.5 - 12.7 fL 01/19/2024 6:[address] [facility] Blood VENOUS BLOOD / Unknown Venipuncture / Unknown 01/19/2024 6:08 EDT 01/19/2024 6:12 EDT Masha Russell MD HEMATOLOGY & PF4 ORD ERABLES [facility] [address] [place] [address] * FLUID CELL COUNT (01/18/2024 14:20 EDT) Only the most recent of3 resultswithin the time period is included. RBC, Fluid <10,000 /cmm 01/18/2024 15:[address] [facility] Nucleated Cells, fluid 207 /cmm 01/18/2024 15:[address] [facility] Comment, fluid Clear Yellow 01/18/2024 15:[address] [facility] Fluid ASCITIC FLUID / Unknown 01/18/2024 14:20 EDT 01/18/2024 14:51 EDT Dalila Painting MD HEMATOLOGY & PF4 ORD ERABLES [facility] [address] [place] [address] * FLUID DIFFERENTIAL (01/18/2024 14:20 EDT) Only the most recent of3 resultswithin the time period is included. Neutrophils Fluid Relative 31 % 01/18/2024 17:[address] [facility] Lymphocytes Fluid Relative 12 % 01/18/2024 17:[address] [facility] Coffee/Macrophage 53 % 17:[address] [facility] Mesothelial Cells Fluid Relative 4 % 01/18/2024 17:[address] [facility] Fluid ASCITIC FLUID / Unknown 01/18/2024 14:20 EDT 01/18/2024 14:51 EDT Dalila Painting MD GEN LAB UNIT COLLECT ORDERABLES Performing Organization Address [facility] Co de Phone Number [facility] [address] [place] [address] * US LOWER VENOUS DUPLEX (DVT) RIGHT (01/18/2024 13:37 EDT) Anatomical Region Laterality Modality Vascular Ultrasound Narrative 01/18/2024 21:24 EDT ?No evidence of deep or superficial venous thrombosis in the right lower extremity. Right Lower Venous Other The right external iliac, common femoral, proximal greater saphenous, proximal profunda femoris, femoral, popliteal, peroneal, and posterior tibial veins demonstrate normal Doppler flow/waveforms and compression. Venous HPI and Indications Lower extremity pain. Venous Past Medical History Anticoagulation therapy. Kaylah Vieira [place] [facility] [place]D ER[place] * SARS COV2, FLU A/B, RSV DETECT BY PCR (01/16/2024 16:41 EDT) Only the most recent of2 resultswithin the time period is included. FLU A RNA Result (FLARES) Negative Negative 01/16/2024 17:[address] [facility] FLU B RNA Result (FLBRES) Negative Negative 01/16/2024 17:[address] [facility] RSV RNA Result (RSVRES) Negative Negative 01/16/2024 17:[address] [facility] COVID-19 rt-PCR Result Negative Negative 01/16/2024 17:[address] [facility] Comment: Negative results do not preclude 2019-nCoV infection and should not be used as the sole basis for treatment or other patient management decisions. Negative results must be combined with clinical observations, patient history, and epidemiological information. Performed on the [employer] Swab NASOPHARYNGEAL STRUCTURE / Unknown Swab / Unknown 01/16/2024 16:41 EDT 01/16/2024 16:50 EDT Dalila Painting MD MICROBIOLOGY - GENER AL ORDERABLES [facility] [address] [place] [id number] * (ABNORMAL) DIFFERENTIAL, AUTOMATED MANUAL (01/16/2024 8:35 EDT) Only the most recent of2 resultswithin the time period is included. % Neutrophils 88.6 Not Indicated % 01/16/2024 9:23 [facility] % Lymphocytes 7.0 Not Indicated % 01/16/2024 9:23 [facility] % Monocytes 4.4 Not Indicated % 01/16/2024 9:23 [facility] Absolute Neutrophils 22.66(H) 2.20 - 8.85 K/cmm 01/16/2024 9:23 [facility] Absolute Lymphocytes 1.79 1.09 - 3.30 K/cmm 01/16/2024 9:23 [facility] Absolute Monocytes 1.13(H) 0.10 - 0.80 K/cmm 01/16/2024 9:23 [facility] Type of Differential: Manual 01/16/2024 9:23 [facility] Blood BLOOD SAMPLE TAKEN FROM CENTRAL LINE / Unknown Port / Unknown 01/16/2024 8:35 EDT 01/16/2024 8:43 EDT Kaylah Vieira MD HEMATOLOGY & PF4 OR DERABLES [facility] [address] [place] [address] * XR CHEST 2 VIEWS (01/16/2024 7:12 EDT) Anatomical Region Laterality Modality Computed Radiogr aphy 01/16/2024 8:50 EDT Impressions 01/16/2024 8:50 EDT 1. ??No acute abnormality. 2. ??Improving bilateral linear atelectasis. 3. ??Right chest port and catheter. I have personally reviewed the images and the above interpretation and agree with the findings. [id number] Narrative 01/16/2024 8:50 EDT XR CHEST 2 VIEWS ??01/16/2024 7:11 AM Clinical History/comments: fever, SOB Comparison: Chest radiographs most recently 01/08/2024. CT chest 01/05/2024.. Technique: Frontal and lateral views of the chest. Findings: Lungs: Low lung volumes. There is some linear atelectasis in the right lower lung.. Pleura/diaphragms: No visible pneumothorax or pleural fluid. Cardiac and mediastinal contours: Normal cardiomediastinal silhouette. Right chest port catheter terminates in the superior vena cava. Soft tissues and extrathoracic findings: Right breast surgical clips project over the lateral chest. Bones: The bones are demineralized. Remote healed bilateral rib fractures. There is spinal fusion hardware overlying the lumbar spine. Resulting Agency Comment [id number] Procedure Note Evan Garcia MD - 01/16/2024 XR CHEST 2 VIEWS 01/16/2024 7:11 AM Clinical History/comments: fever, SOB Comparison: Chest radiographs most recently 01/08/2024. CT chest01/05/2024.. Technique: Frontal and lateral views of the chest. Findings: Lungs: Low lung volumes. There is some linear atelectasis in the rightlower lung.. Pleura/diaphragms: No visible pneumothorax or pleural fluid. Cardiac and mediastinal contours: Normal cardiomediastinal silhouette.Right chest port catheter terminates in the superior vena cava. Soft tissues and extrathoracic findings: Right breast surgical clipsproject over the lateral chest. Bones: The bones are demineralized. Remote healed bilateral rib fractures.There is spinal fusion hardware overlying the lumbar spine. IMPRESSION 1. No acute abnormality. 2. Improving bilateral linear atelectasis. 3. Right chest port and catheter. I have personally reviewed the images and the above interpretation andagree with the findings. [id number] James Izaguirre MD IMG DIAGNOSTIC AMANDA GING ORDERABLES * (ABNORMAL) UA CHEMICAL & SEDIMENT + REFLEX TO CULTURE (01/16/2024 6:39 EDT) Color UA Yellow Colorless, Yellow 01/16/2024 6:54 [facility] Clarity UA Clear Clear 01/16/2024 6:54 [facility] Glucose UA Negative Negative mg/dL 01/16/2024 6:54 [facility] Bilirubin UA 1+(A) Negative 01/16/2024 6:54 [facility] Ketones UA Trace(A) Negative 01/16/2024 6:54 [facility] Specific [place], Urine 1.022 1.001 - 1.030 01/16/2024 6:54 [facility] Blood UA Negative Negative 01/16/2024 6:54 [facility] Urobilinogen UA 1.0 0.2-1.0 mg/dL mg/dL 01/16/2024 6:54 [facility] Nitrite UA Negative Negative 01/16/2024 6:54 [facility] Leukocyte Esterase UA 2+(A) Negative 01/16/2024 6:54 [facility] Protein UA Trace(A) Negative mg/dL 01/16/2024 6:54 [facility] pH, UA 6.0 <8.5 01/16/2024 6:54 [facility] Urine RBC Count, Auto 0 - 2 0 - 2 Cells/HPF 01/16/2024 6:[address] [facility] Urine WBC Count, Auto 10 - 50(A) 0 - 3 Cells/HPF 01/16/2024 6:[address] [facility] Urine Squamous Count, Auto None Seen None Seen Cells/HPF 01/16/2024 6:[address] [facility] Urine Hyaline Cast Count, Auto <=10 <=10 Casts/LPF 01/16/2024 6:[address] [facility] Urine Bacteria Count, Auto None Seen None Seen Bacteria/HP F 01/16/2024 6:[address] [facility] Urine URINE SPECIMEN OBTAINED BY CLEAN CATCH PROCEDURE / Unknown Urine Collect / Unknown 01/16/2024 6:39 EDT 01/16/2024 6:[address] [facility] - 01/16/2024 6:54 EDT A Urine Culture test has been reflexively ordered based on result criteria from the Urine Sediment Analysis. Urine Sediment Analysis results are unreliable on urines that are unrefrigerated for >2 hrs or refrigerated >8 hrs. James Izaguirre MD URINALYSIS ORDERAB LES Performing Organization Address City/State/[facility] Co de Phone Number [facility] [address] [place] [address] * (ABNORMAL) BACTERIAL CULTURE, URINE (01/16/2024 6:39 EDT) Organism ID 10, 000 to 100,000 CFU/ml Enterococcus faecalis(A) VITEK SUSCEPTIBILITY 01/19/2024 8:[address] [facility] Comment: Ampicillin or amoxicillin are the drugs of choice for treating uncomplicated cystitis caused by Enterococcus (including VRE). Organism ID 10, 000 to 100,000 CFU/ml Usual urogenital antonia 01/19/2024 8:[address] [facility] Urine URINE SPECIMEN OBTAINED BY CLEAN CATCH PROCEDURE / Unknown Urine Collect / Unknown 01/16/2024 6:39 EDT 01/16/2024 6:54 EDT Narrative Organism Antibiotic Method Susceptibility Enterococcus faecalis Nitrofurantoin VITEK SUSCEPTIBIL ITY <=16 ug/mL: Susceptible Enterococcus faecalis Vancomycin VITEK SUSCEPTIBILIT Y 1 ug/mL: Susceptible James Izaguirre MD MICROBIOLOGY - GEN ERAL ORDERABLES Performing Organization Address City/[facility]/ZIP Co de Phone Number [facility] [address] [place] [address] * BACTERIAL CULTURE, BLOOD (01/16/2024 6:28 EDT) Only the most recent of5 resultswithin the time period is included. Organism ID No Growth at 5 days 01/21/2024 6:[address] [facility] Blood VENOUS BLOOD / Unknown Venipuncture / Unknown 01/16/2024 6:28 EDT 01/16/2024 6:35 EDT James Izaguirre MD MICROBIOLOGY - GEN ERAL ORDERABLES Performing Organization Address [facility] Co de Phone Number [facility] [address] [place] [address] * MAGNESIUM (01/14/2024 5:31 EDT) Only the most recent of6 resultswithin the time period is included. Magnesium 2.2 1.7 - 2.8 mg/dL 01/14/2024 6:[address] [facility] Blood VENOUS BLOOD / Unknown Port / Unknown 01/14/2024 5:31 EDT 01/14/2024 5:38 EDT Kerry Jimenez MD CHEMISTRY & BLOOD GA S ORDERABLES Performing Organization Address [facility]/ZIP Co de Phone Number [facility] [address], [place] [id number] * HISTOPLASMA AND BLASTOMYCES AG, EIA, URINE (01/13/2024 1:15 EDT) Histoplasma/Blasto myces Ag Result Not Detected Not Detected 01/17/2024 14:[address] [facility] Comment: No antigen from Histoplasma or Blastomyces detected. ?? False negative results may occur depending on extent of disease, and/or site of infection. ?? Repeat testing on a new specimen if clinically indicated. ?? Histoplasma/Blasto myces Ag Value Not Detected ng/mL 01/17/2024 14:[address] [facility] Comment: ADDITIONAL INFORMATION This test was developed and its performance characteristics determined by [facility] in a manner consistent with CLIA requirements. This test has not been cleared or approved by the U.S. Food and Drug Administration. Test Performed by: [facility] [address] [place] [id number] Special Education Curriculum Specialist: Abby Rubi Ph.D.; CLIA# [id number] Urine URINE / Unknown Urine Collect / Unknown 01/13/2024 1:15 EDT 01/13/2024 1:21 EDT Renee Garcia MD URINALYSIS ORDERABLE S [facility] [address] [place] [address] * ANAPLASMA AND BABESIA TESTING BY PCR (01/12/2024 19:44 EDT) Anaplasma phagocytophilum Negative Negative 01/13/2024 10:[address] [facility] Babesia Species Negative Negative 10:[address] [facility] Blood VENOUS BLOOD / Unknown Venipuncture / Unknown 01/12/2024 19:44 EDT 01/12/2024 19:[address] [facility] - 01/13/2024 10:45 EDT This test was developed and its performance characteristics determined by [facility]. It has not been cleared or approved by the US Food and Drug Administration. FDA does not require this test to go through premarket FDA review. This test is used for clinical purposes. It should not be regarded as investigational or research. This laboratory is certified under the Clinical Laboratory Improvement Amendments (CLIA) as qualified to perform high complexity clinical laboratory testing. Renee Garcia MD CHEMISTRY & BLOOD GA S ORDERABLES [facility] [address] [place] [address] * MISCELLANEOUS TEST, ODELL (01/12/2024 19:44 EDT) Only the most recent of3 resultswithin the time period is included. [facility] Miscellaneous Test, [place] SEE NOTE 01/16/2024 15:[address] [facility] Comment: Test ? Result ? Flag ??Unit ??RefValue M pneumoniae PCR + Macrolide Reflex ??Specimen source ?bronchial lavage ?M. pneumoniae PCR ?Negative ? Negative ? ADDITIONAL INFORMATION ?This test was developed and its performance characteristics ?determined by [facility] in a manner consistent with CLIA ?requirements. This test has not been cleared or approved by ?the U.S. Food and Drug Administration. ?Test Performed by: ?[facility] ?[address] [place] [address] ?Special Education Curriculum Specialist: Abby Rubi Ph.D.; CLIA# [id number] Swab ORAL / Unknown 01/12/2024 19 :44 EDT 01/12/2024 22:24 EDT Renee Garcia MD CHEMISTRY & BLOOD GA S ORDERABLES Performing Organization Address [facility] Co de Phone Number [facility] [address] [place] [address] * MA ABDOM PARACENTESIS DX/THER W/O IMAGING GUIDANCE, HC - ABDOM PARACENTESIS DX/THER W/O IMAGING GUIDANCE (01/12/2024 13:39 EDT) Narrative [facility] - 01/12/2024 13:39 EDT Jackie Juan MD ? 01/12/2024 14:40 Paracentesis Bedside Date/Time: 01/12/2024 13:39 Performed by: Jackie Juan MD Authorized by: Jackie Juan MD ??Consent: Verbal consent obtained. Risks and benefits: risks, benefits and alternatives were discussed Consent given by: patient Patient understanding: patient states understanding of the procedure being performed Patient consent: the patient's understanding of the procedure matches consent given Site marked: the operative site was marked Patient identity confirmed: verbally with patient Time out: Immediately prior to procedure a time out was called to verify the correct patient, procedure, equipment, it support technician and site/side marked as required. Initial or subsequent exam: subsequent Procedure purpose: therapeutic Indications: abdominal discomfort secondary to ascites Anesthesia: Local Anesthetic: lidocaine 1% without epinephrine Preparation: Patient was prepped and draped in the usual sterile fashion. Puncture site: right lower quadrant Fluid removed: 1000(ml) Fluid appearance: serous Dressinx4 sterile gauze Patient tolerance: patient tolerated the procedure well with no immediate complications Jackie Juan MD PROCEDURE/MINOR AJ GICAL ORDERABLES Performing Organization Address [facility] Co de Phone Number [facility] * (ABNORMAL) GLUCOSE 6-PHOSPHATE DEHYDROGENASE ENZYME ACTIVITY,BLD (01/12/2024 12:45 EDT) G6PD ENZYME ACTIVITY, B 17.9(H) 8.0 - 11.9 U/g Hb 01/16/2024 12:57 EDT [facility] Comment: The G6PD activity level is expected to be decreased in the setting of G6PD deficiency. However, G6PD enzyme activity levels can be increased in the setting of reticulocytosis or markedly elevated WBCs. Clinical correlation is required to establish if there is a possibility of a masked G6PD deficiency, particularly in the setting of , chronic, or episodic jaundice/anemia. In addition, enzyme testing is not reliable in the setting of recent red cell transfusion. If desired, genotyping is available G6PDZ/ G6PD Full Gene Sequencing, V. ADDITIONAL INFORMATION This test was developed and its performance characteristics determined by [facility] in a manner consistent with CLIA requirements. This test has not been cleared or approved by the U.S. Food and Drug Administration. Test Performed by: [address] [address] Special Education Curriculum Specialist: Abby Rubi Ph.D.; CLIA# [id number] Blood VENOUS BLOOD / Unknown Venipuncture / Unknown 01/12/2024 12:45 EDT 01/12/2024 12:55 EDT Jackie Juan MD CHEMISTRY & BLOOD G ORDERABLES Performing Organization Address City/[facility]/ZIP Co de Phone Number [address] [address] * CALCIUM, IONIZED (01/12/2024 5:33 EDT) Pathologist [facility] Calcium, Ionized 1.20 1.14 - 1.35 mmol/L 01/12/2024 5:[address] [facility] Blood VENOUS BLOOD / Unknown Venipuncture / Unknown 01/12/2024 5:33 EDT 01/12/2024 5:40 EDT Kaylah Vieira MD CHEMISTRY & BLOOD G ORDERABLES [facility] [address] [place] [address] * ADULT BRONCHOSCOPY PROCEDURE (01/11/2024 16:53 EDT) Narrative [facility] - 01/11/2024 16:53 EDT Procedure Performed Bronchoscopy - Bronchoscopy, rigid or flexible, including fluoroscopic guidance, when performed; with bronchial alveolar lavage Indications for Exam BELKIS opacity in ummunosupressed patient on chemo Procedure Technique A physical exam was performed. Informed consent was obtained from the patient after explaining all the risks (pneumothorax, life threatening bleeding, infection and adverse effects due to medications), benefits and alternatives to the procedure which the patient appeared to understand and so stated. The patient was connected to the monitoring devices. Continuous oxygen was provided with a nasal cannula and facemask and IV medicine administered thru an indwelling port. Lidocaine 2%, viscous lidocaine, Versed 5 mg Fentanyl 100 mcg 5mL ??2% Viscous Lidocaine were used for local anesthesia and conscious sedation. The bronchoscope was inserted through the mouth and the airway examined. Bronchoalveolar Lavage was done using sequential aliquots of saline, with a total instilled of ( 120ml) and a return of (60ml).. The return was <cloudy > in appearance. Medications Versed 5 mg Fentanyl 100 mcg 5mL ??2% Viscous Lidocaine Estimated Blood Loss - 2 Findings Bronchoscopy All segment visualized to subsegmental level. The noropharynx appeared to have some white plaques. The larynx appears normal. The vocal cords are normal and move normally with phonation and breathing. The subglottic space was mildly inflamed and had a posterior stricture. The trachea is of normal caliber. The sina is sharp. The tracheobronchial tree of the right and left lung examined to at least the first subsegmental level. Bronchial mucosa and anatomy in the right and left lung are normal, there are no endobronchial lesions. Some whitish secretions seen bilaterally. Procedure Diagnosis pneumonitis chemo related vs infectious Recommendations Await lab results on specimens for micro, cytology and pathology. Specimen(s) removed - BELKIS BAL This electronic signature authenticates all electronic and/or handwritten documentation, including orders, generated by the signer during the episode of care contained in this record. 01/11/2024 04:53:35 PM By Chelsea Logan Chelsea Logan MD PFT ORDERABLES Performing Organization Address City/[facility]/ZIP Co de Phone Number [facility] * (ABNORMAL) PNEUMOCYSTIS JIROVECI, MOLECULAR DETECTION, PCR (01/11/2024 16:50 EDT) Specimen Source BAL 11:[address] [facility] Result Positive(A A) Not Applicable 01/15/2024 11:[address] [facility] Comment: Critical Result. ADDITIONAL INFORMATION This test was developed and its performance characteristics determined by [facility] in a manner consistent with CLIA requirements. This test has not been cleared or approved by the U.S. Food and Drug Administration. Test Performed by: [facility] - [address] [address] Special Education Curriculum Specialist: Abby Rubi Ph.D.; CLIA# [id number] Special Information Not Reported 01/15/2024 11:05 EDT [facility] Report Status Not Reported 01/15/2024 11:[address] [facility] BAL STRUCTURE OF UPPER LOBE OF LEFT LUNG / Unknown 01/11/2024 16:50 EDT 01/12/2024 7:41 EDT Chelsea Logan MD MICROBIOLOGY - GENE RAL ORDERABLES Performing Organization Address City/[facility] Co de Phone Number [address] [address] * NOCARDIA CULTURE AND SMEAR (01/11/2024 16:50 EDT) Organism ID No aerobic actinomycetes isolated 01/27/2024 10:[address] [facility] Fungal Smear No Modified acid fast bacilli seen 01/27/2024 10:[address] [facility] BAL STRUCTURE OF UPPER LOBE OF LEFT LUNG / Unknown 01/11/2024 16:50 EDT 01/12/2024 7:40 EDT Chelsea Logan MD MICROBIOLOGY - GENE RAL ORDERABLES Performing Organization Address City/[facility]/ZIP Co de Phone Number [facility] [address] [place] [address] * AFB CULTURE/SMEAR, OTHER (01/11/2024 16:50 EDT) Organism ID No acid-fast bacilli isolated VITEK SUSCEPTIBILITY 03/08/2024 7:[address] [facility] AFB Smear No Acid Fast Bacilli Seen 03/08/2024 7:[address] [facility] BAL STRUCTURE OF UPPER LOBE OF LEFT LUNG / Unknown 01/11/2024 16:50 EDT 01/12/2024 7:40 EDT Chelsea Logan MD MICROBIOLOGY - GENE RAL ORDERABLES Performing Organization Address [facility] Co de Phone Number [facility] [address] [place] [address] * DIFFERENTIAL, LAVAGE FLUID (01/11/2024 16:50 EDT) Neutrophils Fluid Relative 14 % 01/12/2024 9:[address] [facility] Lymphocytes Fluid Relative 19 % 01/12/2024 9:[address] [facility] Coffee/Macrophage 66 % 9:[address] [facility] Eosinophils Fluid Relative 1 % 01/12/2024 9:[address] [facility] Path Review Fluid, other 01/12/2024 9:[address] [facility] BAL STRUCTURE OF UPPER LOBE OF LEFT LUNG / Unknown 01/11/2024 16:50 EDT 01/12/2024 7:40 EDT Chelsea Logan MD GEN LAB UNIT COLLEC T ORDERABLES Performing Organization Address [facility] Co de Phone Number [facility] [address] [place] [address] * BACTERIAL CULTURE/SMEAR, RESPIRATORY (01/11/2024 16:50 EDT) Organism ID Less than 10,000 CFU/ml usual danny-pharyngeal antonia. No Staphylococcus aureus or Pseudomonas species isolated. 02/07/2024 13:[address] [facility] Smear Neutrophils Present 02/07/2024 13:[address] [facility] Smear No bacteria seen 02/07/20 13:[address] [facility] BAL STRUCTURE OF UPPER LOBE OF LEFT LUNG / Unknown 01/11/2024 16:50 EDT 01/12/2024 7:40 EDT Chelsea Logan MD MICROBIOLOGY - GENE RAL ORDERABLES Performing Organization Address [facility]/ZIP Co de Phone Number [facility] [address] [place] [address] * FUNGUS CULTURE/SMEAR (01/11/2024 16:50 EDT) Organism ID Yeast Not Cryptococcus or Dimorphic Fungi 02/09/2024 11:[address] [facility] Fungal Smear No Fungi Seen 11:[address] [facility] BAL STRUCTURE OF UPPER LOBE OF LEFT LUNG / Unknown 01/11/2024 16:50 EDT 01/12/2024 7:40 EDT Chelsea Logan MD MICROBIOLOGY - GENE RAL ORDERABLES Performing Organization Address City/[facility]/ZIP Co de Phone Number [facility] [address], [place] [id number] * FOLATE (01/11/2024 8:00 EDT) Folate >24.0 See Note ng/mL 01/11/2024 20:[address] [facility] Comment: Reference Ranges for Folate: Deficient: ?< 3.4 ng/mL Indeterminate: ??3.4 - 5.4 ng/mL Normal: ? > 5.4 ng/mL The results of this assay can be falsely elevated due to the consumption of Biotin. Blood BLOOD SAMPLE TAKEN FROM CENTRAL LINE / Unknown 01/11/2024 8:00 EDT 01/11/2024 8:[address] [facility] - 01/11/2024 20:13 EDT Slight hemolysis present Hemolysis may elevate Folate result Kaylah Vieira MD CHEMISTRY & BLOOD G ORDERABLES Performing Organization Address [facility] Co de Phone Number [facility] [address] [place] [address] * (ABNORMAL) VITAMIN B12 (01/11/2024 8:00 EDT) Vitamin B12 1,574(H) 211 - 911 pg/mL 01/11/2024 20:[address] [facility] Blood BLOOD SAMPLE TAKEN FROM CENTRAL LINE / Unknown 01/11/2024 8:00 EDT 01/11/2024 8:08 EDT Kaylah Vieira MD CHEMISTRY & BLOOD G ORDERABLES Performing Organization Address [facility] Co de Phone Number [facility] [address] [place] [address] * (ABNORMAL) HEPATIC FUNCTION PANEL (ALB,ALK PHOS,ALT,AST,DBIL,TOT WILY,TOT PROT) (01/11/2024 8:00 EDT) Total Protein 5.3(L) 6.3 - 8.2 g/dL 01/11/2024 15:[address] [facility] Comment:Slight hemolysis gonzalez ntified, interpret with caution as results may be affected due to hemolysis. Albumin 2.5(L) 3.4 - 4.9 g/dL 01/11/2024 15:[address] [facility] Comment:Slight hemolysis gonzalez ntified, interpret with caution as results may be affected due to hemolysis. Bilirubin, Total 1.2 <1.4 mg/dL 01/11/20 24 15:09 [facility] Conjugated Bilirubin 0.0 <=0.3 mg/dL 01/11/2024 15:09 [facility] Unconjugated Bilirubin 0.6 <=1.1 mg/dL 01/11/2024 15:09 [facility] Alkaline Phosphatase 312(H) 38 - 126 U/L 01/11/2024 15:09 [facility] Comment:Slight hemolysis gonzalez ntified, hemolysis will decrease ALKP result. Interpret with caution as results may be affected due to hemolysis. ALT 50(H) <35 U/L 01/11/2024 15:09 [facility] AST 69(H) 15 - 46 U/L 01/11/2024 15:09 [facility] Comment:Slight hemolysis gonzalez ntified, interpret with caution as results may be affected due to hemolysis. Calculated Total Bilirubin 0.6 <1.4 mg/dL 01/11/2024 15:09 [facility] Blood BLOOD SAMPLE TAKEN FROM CENTRAL LINE / Unknown 01/11/2024 8:00 EDT 01/11/2024 8:08 EDT Kaylah Vieira MD CHEMISTRY & BLOOD G ORDERABLES [facility] [address], [place] [id number] * (ABNORMAL) TRANSFERRIN SATURATION (01/10/2024 8:44 EDT) Iron 27(L) 37 - 170 ??g/dL 01/10/2024 9:[address] [facility] Iron Binding Capacity 250 240 - 450 ??g/dL 01/10/2024 9:47 [facility] Transferrin Saturation 11(L) 15 - 45 % 01/10/2024 9:[address] [facility] Blood BLOOD SAMPLE TAKEN FROM CENTRAL LINE / Unknown 01/10/2024 8:44 EDT 01/10/2024 9:05 EDT Kaylah Vieira MD CHEMISTRY & BLOOD G ORDERABLES Performing Organization Address City/[facility]/ZIP Co de Phone Number [facility] [address] [place] [address] * FERRITIN (01/10/2024 8:44 EDT) Pathologist [facility] Ferritin 46 10 - 291 ng/mL 01/10/2024 10:[address] [facility] Blood BLOOD SAMPLE TAKEN FROM CENTRAL LINE / Unknown 01/10/2024 8:44 EDT 01/10/2024 9:05 EDT Kaylah Vieira MD CHEMISTRY & BLOOD G ORDERABLES Performing Organization Address [facility] Co de Phone Number [facility] [address], [place] [address] * (ABNORMAL) FUNGITELL, SERUM (01/10/2024 6:41 EDT) Pathologist [facility] Fungitell Quantitative Value >500(A) <60 pg/mL pg/mL 01/12/2024 12:07 EDT [facility] Fungitell Qualitative Result Positive (A) Negative 01/12/2024 12:07 EDT [facility] Comment: (1, 3) Mxsh-F-Khtfxk detected. A single positive result should be interpreted with caution and correlated alongside consideration of patient risk for invasive fungal disease, results of routine laboratory tests (e.g., bacterial and fungal culture, histopathologic evaluation, etc.) and radiologic findings. Repeat testing on a new sample (collected in 3-4 days) is recommended as serially positive samples are associated with a higher diagnostic odds ratio for invasive fungal infection compared to a single positive result. False positive results may occur in patients who have recently undergone hemodialysis, treatment with certain fractionated blood products (e.g., serum albumin, immunoglobulins), and/or those who have had significant exposure to glucan-containing gauze during surgery. This assay does not detect certain fungi, including Cryptococcus species, which produce very low levels of (1, 3) Metx-Z-Cbhzmb (BDG) and the Mucorales (e.g., Lichthemia, Mucor and Rhizopus), which are not known to produce BDG. Additionally, the yeast phase of Blastomyces dermatitidis produces little BDG and may not be detected by this assay. Hemolyzed ADDITIONAL INFORMATION This assay was performed using the FDA-cleared Fungitell Assay ([facility], [place], [place], [place]), a kinetic MANDEEP based on modification of the Limulus Amebocyte Lysate pathway. Test Performed by: [facility] - [address] [address] Special Education Curriculum Specialist: Abby Rubi Ph.D.; CLIA# [id number] Blood BLOOD SAMPLE TAKEN FROM CENTRAL LINE / Unknown Port / Unknown 01/10/2024 6:41 EDT 01/10/2024 7:06 EDT Stepan Emery DO IMMUNOLOGY AND SEROL OGY ORDERABLES [address] [address] * CRYPTOCOCCAL ANTIGEN, SERUM (01/10/2024 6:41 EDT) [facility] Cryptococcal Ag Serum Negative Negative 01/10/2024 15:[address] [facility] Blood BLOOD SAMPLE TAKEN FROM CENTRAL LINE / Unknown Port / Unknown 01/10/2024 6:41 EDT 01/10/2024 7:21 EDT Stepan Emery DO MICROBIOLOGY - GENER AL ORDERABLES [facility] [address] [place] [address] * TRANSTHORACIC ECHO (TTE) COMPLETE W/DOPPLER W/CF NO CONTRAST (01/09/2024 16:18 EDT) Pathologist [facility] LV Diastolic Volume 83 mL [facility] LV Systolic Volume 35 mL [facility] Stroke volume (SV), LVOT DP 55 ml [facility] LVOT VTI, S 19.5 cm [facility] INT [facility] LVOT peak velocity, S 1.2 m/s [facility] LVOT area 2.8 cm2 [facility] POIN T [facility] LVOT ID, S 1.9 cm [facility] POI NT OF CARE AV LVOT peak gradient 6 mmHg [facility] LVOT mean gradient, S 3 mmHg [facility] LV ejection fraction, 1-p A4C 51 % [facility] LV ejection fraction, 1-p A2C 53 % [facility] Aortic root ID 2.2 cm [facility] Ascending aorta ID, a-p 2.5 cm [facility] LV ID, ES, PLAX 3.0 2.1 - 4.0 cm [facility] LV PW thickness, ED, PLAX 0.9 0.6 - 1.1 cm [facility] LV ID, ED, PLAX 4.3 3.5 - 6.0 cm [facility] LA volume, ES, BP 24.0 ml [facility] LA Atrial Length A2C 4.6 cm [facility] LA volumes, ES, A4C 23.0 ml [facility] Pulmonic valve mean velocity, S 1 cm/s [facility] LA ID/bsa, A-P 2.0 cm/m2 [facility] LA ID, A-P, ES 3.0 cm [facility] LV end-diastolic volume, 1-p A4C 66 ml [facility] LV end diastolic volume 1-p A2C 56 ml [facility] Stroke index (SV/bsa) LVOT DP 36.0 ml/m2 [facility] LA/aortic root ratio 1.36 [facility] LVOT mean velocity, S 0.8 m/s [facility] IVS thickness, ED, PLAX 0.7 cm [facility] Aortic valve VTI, S 25.0 cm [facility] Aortic valve area VTI 2.2 cm2 [facility] Anatomical Region Laterality Modality Ultrasound Narrative 01/09/2024 17:08 EDT ?IVC/SVC: The inferior vena cava was normal in size. ?Left??Ventricle: The left ventricular cavity was normal in size. Left ventricular systolic function was hyperdynamic with an ejection fraction =>65%. Left ventricular wall thickness was normal. Left ventricular wall motion was normal; there were no regional wall motion abnormalities. ?Right??Ventricle: The right ventricular cavity was normal in size. Right ventricular systolic function was hyperdynamic. Normal tricuspid annular plane systolic excursion (TAPSE) >1.7 cm. Normal RV S' >9.5cm/s. ?Mitral??Valve: There was mild mitral regurgitation. Left Ventricle The left ventricular cavity was normal in size. Left ventricular systolic function was hyperdynamic with an ejection fraction =>65%. Left ventricular diastolic parameters were normal. Left ventricular wall thickness was normal. Left ventricular wall motion was normal; there were no regional wall motion abnormalities. Global longitudinal strain was non-diagnostic due to poor regional tracking. . Right Ventricle The right ventricular cavity was normal in size. Right ventricular systolic function was hyperdynamic. Normal tricuspid annular plane systolic excursion (TAPSE) >1.7 cm. Normal RV S' >9.5cm/s. Right ventricular wall thickness was normal. Left Atrium The left atrium was normal in size. Right Atrium The right atrium was normal in size. IVC/SVC The inferior vena cava was normal in size. The inferior vena cava demonstrated a diameter of <=21 mm and collapses >50%; therefore, the right atrial pressure is estimated at 0-5 mmHg. Mitral Valve Mitral valve structure was normal. There was mild mitral regurgitation. There was no significant mitral valve stenosis. Tricuspid Valve Tricuspid valve structure was normal. There was trace tricuspid valve regurgitation. There was no tricuspid valve stenosis. Aortic Valve The aortic valve structure was trileaflet. The aortic leaflets were not thickened. There was no aortic valve stenosis. There was no aortic valve regurgitation. AV Area VTI: 2.2 cm2. Pulmonic Valve There was no significant pulmonic valve regurgitation. There was no pulmonic valve stenosis. Ascending Aorta The aortic root was normal in size. The ascending aorta was normal in size. Pericardium There was no significant pericardial effusion. Pulmonic Artery Pulmonary systolic pressure was within the normal range, in the range of 20 mmHg to 25 mmHg. Study Details Study status: Routine. Transthoracic echocardiography. M-Mode, complete 2D, complete spectral Doppler, and color Doppler.The study was interpreted by [facility]. Pertinent images and digital data are archived for permanent storage and are available for subsequent review. Scanning was performed from the apical, parasternal, subcostal and suprasternal acoustic windows. Overall the study quality was adequate. Images were obtained using cardiac ultrasound machine EPIQ #14. Kaylah Vieira MD CARDIAC ECHO ORDERA BLES * ECG REPORT - SCANNED (01/09/2024 13:06 EDT) 01/09/2024 13:0 6 EDT Scan 2 Sports Complex Attendant PROCEDURE/MINOR AJ GICAL ORDERABLES * IR PARACENTESIS-RADIOLOGY (01/09/2024 9:59 EDT) Anatomical Region Laterality Modality N/A X-Ray Angiograph y 01/10/2024 10:1 2 EDT Impressions 01/10/2024 10:12 EDT 1. Successful ultrasound guided paracentesis. [id number] Narrative 01/10/2024 10:12 EDT ULTRASOUND-GUIDED PARACENTESIS History: Ascites Technique: ?? Informed consent was obtained after the risks and benefits of the procedure were discussed with the patient. The specific risks of this procedure which were discussed include but were not limited to bleeding, infection, or bowel injury. A procedural time out was performed prior to the procedure, where the procedure, site, and patient identification was confirmed by all healthcare providers present in the room. ?? The patient was sterilely prepped and draped in the usual fashion. The patient's abdomen was scanned with a ultrasound probe and a deep pocket of fluid was located in the right mid abdomen. The skin was anesthetized with buffered 1% lidocaine and a small skin deion was created with a number 11 scalpel blade. Using ultrasound for guidance, a one-step catheter was advanced into the ascites. The needle was removed. The sheath and high-pressure tubing was connected to a Vacutainer. ?? A total of 2.2 L of clear, straw-colored fluid was removed. The sheath was removed. A sterile dressing was applied. The patient tolerated the procedure well. There were no immediate post procedure complications. Maximum sterile barrier technique according to current guidelines was used. Resulting Agency Comment [id number] Procedure Note Scriver, David Rowley MD - 01/10/2024 ULTRASOUND-GUIDED PARACENTESIS History: Ascites Technique: Informed consent was obtained after the risks and benefits of theprocedure were discussed with the patient. The specific risks of thisprocedure which were discussed include but were not limited to bleeding,infection, or bowel injury. A procedural time out was performed prior tothe procedure, where the procedure, site, and patient identification wasconfirmed by all healthcare providers present in the room. The patient was sterilely prepped and draped in the usual fashion. Thepatient's abdomen was scanned with a ultrasound probe and a deep pocket offluid was located in the right mid abdomen. The skin was anesthetized withbuffered 1% lidocaine and a small skin deion was created with a number 11scalpel blade. Using ultrasound for guidance, a one-step catheter wasadvanced into the ascites. The needle was removed. The sheath andhigh-pressure tubing was connected to a Vacutainer. A total of 2.2 L of clear, straw-colored fluid was removed. The sheath was removed. A sterile dressing was applied. The patienttolerated the procedure well. There were no immediate post procedurecomplications. Maximum sterile barrier technique according to currentguidelines was used. IMPRESSION 1. Successful ultrasound guided paracentesis. [id number] Hugo Vergara MD PhD IMG IR ORDERABL ES * STREPTOCOCCUS PNEUMONIAE ANTIGEN, URINE (01/09/2024 6:20 EDT) Strep Pneumo Ag Detection, Urine Negative Negative 01/09/2024 9:[address] [facility] Urine URINE / Unknown Urine Collect / Unknown 01/09/2024 6:20 EDT 01/09/2024 7:23 EDT Kerry Jimenez MD MICROBIOLOGY - GENER AL ORDERABLES Performing Organization Address [facility] Co de Phone Number [facility] [address] [place] [address] * LEGIONELLA ANTIGEN DETECTION, URINE (01/09/2024 6:20 EDT) Legionella Antigen Detection Negative Negative 01/09/2024 9:[address] [facility] Urine URINE / Unknown Urine Collect / Unknown 01/09/2024 6:20 EDT 01/09/2024 7:23 EDT Kerry Jimenez MD MICROBIOLOGY - GENER AL ORDERABLES Performing Organization Address [facility] Co de Phone Number [facility] [address] [place] [phone] * HN LAB CBC SMEAR REVIEW (01/09/2024 6:08 EDT) Pathologist [facility] Differential Comment Slide was examined by a technologist to verify the WBC and/or platelet count. 01/09/2024 7:[address] [facility] Blood VENOUS BLOOD / Unknown Venipuncture / Unknown 01/09/2024 6:08 EDT 01/09/2024 6:34 EDT Kerry Jimenez MD HEMATOLOGY & PF4 ORD ERABLES Performing Organization Address [facility] Co de Phone Number [facility] [address] [place] [phone] * EXPANDED RESPIRATORY VIRAL PANEL, PCR (DOES NOT INCLUDE INFLUENZA OR RSV) (01/08/2024 17:10 EDT) Paraflu Type 1 Rslt (PF1RES) Negative Negative 01/08/2024 23:[address] [facility] Paraflu Type 2 Rslt (PF2RES) Negative Negative 01/08/2024 23:[address] [facility] Paraflu Type 3 Rslt (PF3RES) Negative Negative 01/08/2024 23:[address] [facility] Paraflu Type 4 Rslt Negative Negative 01/07 23:[address] [facility] Rhinovirus RNA Rslt (RVRES) Negative Negative 01/08/2024 23:[address] [facility] Metapneumovirus RNA Rslt (HMVRES) Negative Negative 01/08/2024 23:[address] [facility] Adenovirus DNA Rslt (ADVRES) Negative Negative 01/08/2024 23:[address] [facility] Swab NASOPHARYNGEAL STRUCTURE / Unknown Swab / Unknown 01/08/2024 17:10 EDT 01/08/2024 17:12 EDT Bambi Porter MD MICROBIOLOGY - GENER AL ORDERABLES [facility] [address] [place] [address] * (ABNORMAL) COMPREHENSIVE METABOLIC PANEL (CMP) (01/08/2024 17:10 EDT) Sodium 128(L) 136 - 145 mmol/L 01/08/2024 17:28 [facility] Potassium 4.3 3.5 - 5.0 mmol/L 01/08/2024 17:28 [facility] Chloride 102 96 - 110 mmol/L 01/08/2024 17:28 [facility] CO2 Total 23 22 - 32 mmol/L 01/08/2024 17:28 [facility] Glucose 145(H) 70 - 99 mg/dl 01/08/2024 17:28 [facility] BUN 19 10 - 26 mg/dL 01/08/2024 17:28 [facility] Creatinine 0.68 0.52 - 1.04 mg/dL 01/08/2024 17:28 [facility] eGFR 98 >60 mL/min/1.7 3m2 01/08/2024 17:28 [facility] Total Protein 4.9(L) 6.3 - 8.2 g/dL 01/08/2024 17:[address] [facility] Albumin 2.4(L) 3.4 - 4.9 g/dL 01/08/2024 17:[address] [facility] Alkaline Phosphatase 368(H) 38 - 126 U/L 01/08/2024 17:[address] [facility] AST 41 15 - 46 U/L 01/08/2024 17:[address] [facility] ALT 39(H) <35 U/L 01/08/2024 17:[address] [facility] Bilirubin, Total 1.3 <1.4 mg/dL 01/08/20 17:[address] [facility] Calcium 7.9(L) 8.5 - 10.5 mg/dL 01/08/2024 17:[address] [facility] Albumin/Globulin Ratio 1.0 1.0 - 2.5 01/08/2024 17:[address] [facility] Anion Gap 3(L) 5 - 14 mmol/L 01/08/2024 17:[address] [facility] Blood VENOUS BLOOD / Unknown Venipuncture / Unknown 01/08/2024 17:10 EDT 01/08/2024 17:12 EDT Trinh Alcocer PA-C CHEMISTRY & BLOOD GA S ORDERABLES [facility] [address], [place] [id number] * XR CHEST PORTABLE 1 VIEW (01/08/2024 16:57 EDT) Anatomical Region Laterality Modality Computed Radiogr aphy 01/08/2024 17:0 5 EDT Impressions 01/08/2024 17:05 EDT Interposed areas of atelectasis and airspace disease similar as on the comparison CT 3 days prior concerning for bilateral pneumonia. Differential consideration would include drug reaction. [id number] Narrative 01/08/2024 17:05 EDT XR CHEST PORTABLE 1 VIEW ??01/08/2024 4:43 PM Clinical History/comments: SOB, metastatic breast CA; Comparison: CT chest January 05, 2024 Technique: Single portable AP view of the chest. Findings: Lines/tubes/devices: Right IJ port tip in the superior vena cava. Lungs: Unchanged bands of atelectasis in both lung bases interposed with areas of hazy groundglass opacities, similar in appearance as on the comparison CT 3 days prior.. Pleura: No visible pleural abnormalities. Cardiac and mediastinal contours: Normal. Soft tissues and extrathoracic findings: ??Normal. Bones: No concerning bone lesions. Resulting Agency Comment [id number] Procedure Note Sonny Georges MD - 01/08/2024 XR CHEST PORTABLE 1 VIEW 01/08/2024 4:43 PM Clinical History/comments: SOB, metastatic breast CA; Comparison: CT chest January 05, 2024 Technique: Single portable AP view of the chest. Findings: Lines/tubes/devices: Right IJ port tip in the superior vena cava. Lungs: Unchanged bands of atelectasis in both lung bases interposed withareas of hazy groundglass opacities, similar in appearance as on thecomparison CT 3 days prior.. Pleura: No visible pleural abnormalities. Cardiac and mediastinal contours: Normal. Soft tissues and extrathoracic findings: Normal. Bones: No concerning bone lesions. IMPRESSION Interposed areas of atelectasis and airspace disease similar as on thecomparison CT 3 days prior concerning for bilateral pneumonia.Differential consideration would include drug reaction. [id number] Trinh Alcocer PA-C IMG DIAGNOSTIC IMAGI NG ORDERABLES * EKG 12-LEAD (01/08/2024 16:54 EDT) 01/08/2024 16:[address] [facility] - 01/09/2024 12:51 EDT ?[facility] ? Test Date: ?2024-01-08 Pat Name: ? SUNSHINE LUISWEST ? Department: ?? ED ? Room: ? Gender: ? Female ? Steam Finisher: ?? : ?1960 ? Requested By: CASA Bueno Order Number: [id number] ? Reading MD: ?? EFRAIN HILL ? Measurements Intervals ?[place] ? Rate: ? 108 ?P: ?17 MA: ? 140 ?QRS: ?2 QRSD: ? 110 ?T: ?20 QT: ? 326 ? QTc: ?439 ? Interpretive Statements SINUS TACHYCARDIA NONSPECIFIC ST ELEVATION ABNORMAL RHYTHM ECG Automated Interpretation. ??Provider Interpretation to follow. No previous ECG available for comparison I reviewed the tracing and have either agreed or edited the findings in this report. Electronically Signed On 01-09-2024 12:51:39 EDT by EFRAIN HILL. Procedure Note Efrain Hill MD - 01/09/2024 [facility] Emergency Test Date: 2024-01-08 Pat Name: SUNSHINE SUBRAMANIAN Department: ED Room: Gender: Female Steam Finisher: : 1960 Requested By: CASA Bueno Order Number: [id number] Reading MD: EFRAIN HILL Measurements Intervals [place] Rate: 108 P: 17 MA: 140 QRS: 2 QRSD: 110 T: 20 QT: 326 QTc: 439 Interpretive Statements SINUS TACHYCARDIA NONSPECIFIC ST ELEVATION ABNORMAL RHYTHM ECG Automated Interpretation. Provider Interpretation to follow. No previous ECG available for comparison I reviewed the tracing and have either agreed or edited the findings inthis report. Electronically Signed On 01-09-2024 12:51:39 EDT by EFRAIN HILL. Micky Mcallister MD CARDIAC ECG ORDERAB LES [facility] EKG * CT CHEST W CONTRAST (01/05/2024 14:26 EDT) Anatomical Region Laterality Modality Chest Computed Tomogra phy 01/05/2024 15:3 2 EDT Impressions 01/05/2024 15:32 EDT 1. Diminished lung volumes with evidence of atelectasis and/or scarring in the lungs bilaterally. 2. Patchy areas of groundglass type opacity within the lungs bilaterally have developed since the prior exam. Though possibly related to volume loss the appearance is concerning for infection. 3. Metastatic disease to the liver and spleen with a large amount of ascites. [id number] Narrative 01/05/2024 15:[address] CHEST W CONTRAST ??01/05/2024 1:56 PM Clinical History/Comments: Respiratory illness, nondiagnostic xray; desaturation/ SOB;C50.919:Primary malignant neoplasm of breast with metastasis (HCC-CMS) TECHNIQUE: The exam is performed with intravenous contrast. In addition to mirror installer imaging, axial, sagittal and coronal reconstruction imaging are submitted. COMPARISON: Multiple earlier studies the most recent of which is an abdominal CT dated 12/12/2023. FINDINGS: ?Mediastinum/mariann: Long-term central venous catheter extends from the right with the distal tip near the cavoatrial junction. No suspicious mediastinal or hilar lymphadenopathy identified. ?Lungs/pleura: Lung volumes are diminished. Bandlike opacity both lungs has worsened since the prior study. Patchy areas of groundglass opacity are now demonstrated within the lungs bilaterally, most pronounced in the left upper lobe. Small peripheral pulmonary nodule left upper lobe is longstanding and without significant change. No new suspicious pulmonary nodule or mass within either lung is seen. No gross pleural effusion identified. ?Bones: Healing bilateral rib fractures. No aggressive osseous abnormality is noted. Hardware within the lumbar spine on the mirror installer image. ?Surrounding soft tissues: Bilateral breast prostheses are demonstrated. Left axillary adenopathy on earlier 11/09/2023 CT is nearly completely resolved with only minimal strand-like density currently in the region. ?Included abdomen: The liver is shrunken and contains multiple rounded low-attenuation foci consistent with metastatic disease. Ill-defined low- attenuation within the spleen is, in places, better defined. Large amount of intra-abdominal ascites. ?Other:The exam otherwise appears unremarkable. Resulting Agency Comment [id number] Procedure Note Yuval Kapadia MD - 01/05/2024 CT CHEST W CONTRAST 01/05/2024 1:56 PM Clinical History/Comments: Respiratory illness, nondiagnostic xray; desaturation/ SOB;C50.919:Primarymalignant neoplasm of breast with metastasis (HCC-CMS) TECHNIQUE: The exam is performed with intravenous contrast. In addition toscout imaging, axial, sagittal and coronal reconstruction imaging aresubmitted. COMPARISON: Multiple earlier studies the most recent of which is anabdominal CT dated 12/12/2023. FINDINGS: Mediastinum/mariann: Long-term central venous catheter extends from theright with the distal tip near the cavoatrial junction. No suspiciousmediastinal or hilar lymphadenopathy identified. Lungs/pleura: Lung volumes are diminished. Bandlike opacity both lungshas worsened since the prior study. Patchy areas of groundglass opacityare now demonstrated within the lungs bilaterally, most pronounced in theleft upper lobe. Small peripheral pulmonary nodule left upper lobe islongstanding and without significant change. No new suspicious pulmonarynodule or mass within either lung is seen. No gross pleural effusionidentified. Bones: Healing bilateral rib fractures. No aggressive osseousabnormality is noted. Hardware within the lumbar spine on the scoutimage. Surrounding soft tissues: Bilateral breast prostheses aredemonstrated. Left axillary adenopathy on earlier 11/09/2023 CT is nearlycompletely resolved with only minimal strand-like density currently in theregion. Included abdomen: The liver is shrunken and contains multiple roundedlow- attenuation foci consistent with metastatic disease. Sns-[id number] within the spleen is, in places, better defined. Largeamount of intra-abdominal ascites. Other:The exam otherwise appears unremarkable. IMPRESSION 1. Diminished lung volumes with evidence of atelectasis and/or scarring inthe lungs bilaterally. 2. Patchy areas of groundglass type opacity within the lungs bilaterallyhave developed since the prior exam. Though possibly related to volumeloss the appearance is concerning for infection. 3. Metastatic disease to the liver and spleen with a large amount ofascites. [id number] Alisson Carreon MD [facility] [place]LES * IR PARACENTESIS-RADIOLOGY (01/03/2024 9:15 EDT) Anatomical Region Laterality Modality N/A X-Ray Angiograph y 01/03/2024 15:3 8 EDT Impressions 01/03/2024 15:38 EDT Successful, uncomplicated paracentesis using sonographic guidance yielding ??3 L of fluid. ?? LUNA Arguelles, PA-C Interventional Radiology I have personally reviewed the images and the above interpretation and agree with the findings. [id number] Narrative 01/03/2024 15:38 EDT IR PARACENTESIS-RADIOLOGY ??01/03/2024 8:29 AM Clinical History/Comments: Ascites;R18.8:Other ascites Technique and Findings: After obtaining informed consent, sonographic guidance was used to gain percutaneous access to the abdominal ascites collection. All ultrasound images were recorded. A drainage catheter was advanced and a total of 3 liters of fluid was drained without complication. Finally, the catheter was removed and the puncture site was sterilely bandaged. The patient tolerated procedure well without complication. Resulting Agency Comment [id number] Procedure Note Lea Price MD - 01/03/2024 IR PARACENTESIS-RADIOLOGY 01/03/2024 8:29 AM Clinical History/Comments: Ascites;R18.8:Other ascites Technique and Findings: After obtaining informed consent, sonographic guidance was used to gainpercutaneous access to the abdominal ascites collection. All ultrasoundimages were recorded. A drainage catheter was advanced and a total of 3liters of fluid was drained without complication. Finally, the catheterwas removed and the puncture site was sterilely bandaged. The patienttolerated procedure well without complication. IMPRESSION Successful, uncomplicated paracentesis using sonographic guidance yielding3 L of fluid. LUNA Arguelles, PA-C Interventional Radiology I have personally reviewed the images and the above interpretation andagree with the findings. [id number] Hugo Vergara MD PhD IMG IR ORDERABL ES * ECG REPORT - SCANNED (12/21/2023 11:19 EDT) 12/21/2023 11:1 9 EDT Scan 2 Sports Complex Attendant PROCEDURE/MINOR AJ GICAL ORDERABLES * VITAMIN D (25,OH) (12/20/2023 11:51 EDT) 25OH Vitamin D Tot 97 30 - 100 ng/mL 12/21/2023 12:[address] [facility] Comment: Vitamin D 25,OH Interpretive Ranges: Deficiency: ??<10.0 ng/mL Insufficiency: ??10.0 - 30.0 ng/mL Sufficiency: ??30.0 - 100.0 ng/mL Toxicity: ??>100.0 ng/mL Blood VENOUS BLOOD / Unknown Venipuncture / Unknown 12/20/2023 11:51 EDT 12/20/2023 12:09 EDT Alisson Carreon MD CHEMISTRY & BLOOD G ORDERABLES [facility] [address] [place], [place] [id number] * IR PARACENTESIS-RADIOLOGY (12/20/2023 9:20 EDT) Anatomical Region Laterality Modality N/A X-Ray Angiograph y 12/20/2023 10:3 3 EDT Impressions 12/20/2023 10:33 EDT Successful, uncomplicated paracentesis using sonographic guidance yielding 1.8 L ??fluid. ?? LUNA Arguelles, PAiNtaC Interventional Radiology I have personally reviewed the images and the above interpretation and agree with the findings. [id number] Narrative 12/20/2023 10:33 EDT IR PARACENTESIS-RADIOLOGY ??12/20/2023 8:27 AM Clinical History/Comments: malignant ascites;R18.8:Other ascites;C79.9: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);C50.919: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) Technique and Findings: After obtaining informed consent, sonographic guidance was used to gain percutaneous access to the abdominal ascites collection. All ultrasound images were recorded. A drainage catheter was advanced and a total of 1.8 liters fluid was drained without complication. Finally, the catheter was removed and the puncture site was sterilely bandaged. The patient tolerated procedure well without complication. Resulting Agency Comment [id number] Procedure Note Johnson Kwon MD - 12/20/2023 IR PARACENTESIS-RADIOLOGY 12/20/2023 8:27 AM Clinical History/Comments: malignant ascites;R18.8:Other ascites;C79.9:Metastasis from breast cancer(HCC-CMS);C50.919: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) Technique and Findings: After obtaining informed consent, sonographic guidance was used to gainpercutaneous access to the abdominal ascites collection. All ultrasoundimages were recorded. A drainage catheter was advanced and a total of 1.8liters fluid was drained without complication. Finally, the catheter wasremoved and the puncture site was sterilely bandaged. The patienttolerated procedure well without complication. IMPRESSION Successful, uncomplicated paracentesis using sonographic guidance yielding1.8 L fluid. LUNA Arguelles, GRISEL Interventional Radiology I have personally reviewed the images and the above interpretation andagree with the findings. [id number] Jackie Juan MD IMG IR ORDERABLES * ANAEROBE CULTURE/SMEAR(INC. AEROBES), OTHER (12/20/2023 8:56 EDT) Organism ID No Growth 12/25/2023 11:[address] [facility] Smear No Neutrophils Seen 12/25/2023 11:[address] [facility] Smear No bacteria seen 12/25/2023 11:[address] [facility] Fluid ASCITIC FLUID / Unknown 12/20/2023 8:56 EDT 12/20/2023 9:40 EDT Halle Benito PA-C MICROBIOLOGY - GENER AL ORDERABLES [facility] [address] [place] [address] * HEPATITIS C ANTIBODY (09/12/2009 14:45 EDT) Hepatitis C Ab Negative Reference Range: ??Negative [facility] Blood specimen (specimen) 09/12/2009 14:45 EDT 09/12/2009 14:48 EDT Quita Babb PA-C CHEMISTRY & BL OOD GAS ORDERABLES [facility] [address] [place] [address] from Last 3 Months or Most Recently Relevant to Health Maintenance Advance Directives For more information, please contact: [phone] * Full Code (Latest Code Status on File) Date Activated Date Inactivated Comments 01/08/2024 20:11 01/19/2024 18:24 Question Answer Comments When the patient has NO PULSE: Full Code / CPR Who Made the Decision? Default/Not Discussed * Full Code Date Activated Date Inactivated Comments 12/12/2023 20:00 12/14/2023 19:15 Question Answer Comments When the patient has NO PULSE: Full Code / CPR Who Made the Decision? Default/Not Discussed * Full Code Date Activated Date Inactivated Comments 07/07/2017 14:10 07/08/2017 15:32 Question Answer Comments Reason for decision includes: Full code consistent with overall plan of care Who participated in the discussion? Not Discusse d * Full Code Date Activated Date Inactivated Comments 12/13/2011 17:52 12/17/2011 15:28 Care Teams Roll Grinder Operator Relationship Specialty Start Date End Date Linda Blancas MD [facility] [address] [place] [address] PCP - General 01/06/11 Adolfo Carreno MD [address] [place] [address] [address] [place] [phone] General Surgery 04/26/19
--- OUTSIDE RECORDS SUMMARY | 2024-03-20 14:31 | XMS_ITS | Encounter Summary ---
Author Organization [facility] Address [address] [place] [address] Care Team Providers Care Behavioral Sciences Department Chair Name Role Phone Linda Blancas MD Primary Care Provider Adolfo Carreno MD Unavailable [phone] Reason for Visit * Reason Onset Date Comments Social Work 03/19/2024 Care coordinatio n Encounter Details Date Type Department Care Team (Late st Contact Info) Description 03/19/2024 Telephone [facility] Hematology & Oncology - [facility] [address] [place], [place] [address] Trinh Posey Social Work (Care coordination) Social History Tobacco Use Types Packs/Day Years Used Date Smoking Tobacco: Never Passive Smoke Exposure: Never Smokeless Tobacco: Never Alcohol Use Standard Drinks/Week Comments Not Currently 1 (1 standard drink = 0.6 oz pur e alcohol) [facility] Utilities Answer Date Recorded In the past 12 months has [employer], gas, oil, or water [employer] threatened to shut off services in your [...] medical appointments or from getting medications? No 07/3 In the past 12 months, has l ack of transportation kept you from meetings, work, or from getting things needed for daily living? No 01/10/2024 Housing Stability Vital Sign Answer Rubné e Recorded In the last 12 months, was t here a time when you were not able to pay the mortgage or rent on time? No 01/10/2024 In the past 12 months, how m any times have you moved where you were living? 0 01/10/2024 At any time in the past 12 m [facility], were you homeless or living in a half-way (including now)? No 01/10/2024 Interpersonal Safety Answer Date Record ed How often does anyone, manuela yung family, hit, punch or physically hurt you? 01/08/2024 How often does anyone, manuela yung family, insult, scream, curse or threaten to hurt you? 01/08/2024 Sex and Gender Information Value Date Recorded Sex Assigned at Female 05/17/2019 15:31 EST Gender Identity Female 04/26/2019 13:08 EST Sexual Orientation Bisexual 08/26/2022 10 :47 EDT documented as of this encounter Functional Status Functional Status Response Date of Assess ment Are you deaf or do you have serious difficulty h earing? No 12/12/2023 Are you blind or do you have serious difficulty seeing, even when wearing glasses? No 01/08/2024 Do you have serious difficul ty walking or climbing stairs? (5 years old or older) No 12/12/2023 Do you have difficulty dress ing or bathing? (5 years old or older) No 12/12/2023 Because of a physical, menta l, or emotional condition, do you have difficulty doing errands alone such as visiting a doctor's office or shopping? (15 years old or older) No 12/12/2023 Cognitive Status Response Date of Assessm ent Because of a physical, menta l, or emotional condition, do you have serious difficulty concentrating, remembering, or making decisions? (5 years old or older) Yes-since this admission - new onset 12/12/2023 documented as of this encounter Miscellaneous Notes * Telephone Encounter - Trinh Posey - 03/19/2024 1317 EDT Pt let me know last week that she's off oxygen and feeling better. Able to resume treatment. However, she's been losing weight and is struggling to add weight. I suggested she speak with our manager filter (Karen Hobson RD). Pt reached out to me today in MyChart and is in agreement with connecting to RD. Pt is out of town this week but would like to connect with RD upon her return. Plan- Referral to RD documented in this encounter Plan of Treatment Upcoming Encounters Date Type Department Care Team (Late st Contact Info) Description 04/02/2024 10:30 EDT Appointment [facility] Interventional Radiology Unit [address] [place] [address] [phone] 04/02/2024 15:15 EDT Office Visit [facility] Surgical Oncology - [address] [phone] Adolfo Carreno MD [address] [place] [address] 2 [place] [phone] 04/05/2024 9:30 EDT Telemedicine [facility] Palliative Care Services [address] [place] [address] [phone] Chichi Woods MD [address] [place] [phone] 04/11/2024 15:00 EDT Telemedicine [facility] Hematology & Oncology [address] [phone] Alisson Carreon MD [address] [place] [address] 2 [place] [phone] 04/13/2024 13:30 EDT Appointment [facility] Hematology & Oncology - [address] [phone] 04/13/2024 14:00 EDT Appointment [facility] Hematology & Oncology - [address] [address] 04/16/2024 10:00 EST Telemedicine [facility] - [facility] Palliative Care Services [address] [place] [address] Chichi Woods MD [address] [place] [address], [address] [phone] 04/24/2024 9:00 EST Appointment [facility] Radiology CT Outpatient - [address] [phone] 04/24/2024 11:00 EST Appointment [facility] Breast Imaging - [facility] [address] [phone] 04/27/2024 12:00 EST Appointment [facility] Hematology & Oncology - [address] [phone] 05/02/2024 15:00 EST Telemedicine [facility] Hematology & Oncology - [address] [phone] Alisson Carreon MD [address] [place] [address], [facility] [address] [place] [phone] 05/04/2024 10:15 EST Ancillary Procedure [facility] Cardiology - [place] [place] [address] 05/04/2024 11:30 EST Appointment [facility] Hematology & Oncology - [address] [address] 05/04/2024 12:00 EST Appointment [facility] Hematology & Oncology - [address] [phone] 06/12/2024 13:00 EST [facility] - [address] [place] [address] documented as of this encounter Visit Diagnoses Not on filedocumented in this encounter Care Teams Behavioral Sciences Department Chair Relationship Specialty Start Date End Date Linda Blancas MD [facility] [address] [place] [address] PCP - General 01/06/11 Adolfo Carreno MD [address] [facility], [facility], [address] [place] [phone] General Surgery 04/26/19 documented as of this encounter
--- OUTSIDE RECORDS SUMMARY | 2024-03-20 14:31 | XMS_ITS | Encounter Summary ---
Author Organization [facility] Address [address] [place] [address] Care Team Providers Care Technical Applications Scientist Name Role Phone Linda Blancas MD Primary Care Provider [phone] Adolfo Carreno MD Unavailable [phone] Encounter Details Date Type Department Care Team (Late st Contact Info) Description 03/13/2024 Orders Only [facility] Hematology & Oncology - [address] [phone] Alisson Carreon MD [address] [facility], [address] [place] [phone] Social History Tobacco Use Types Packs/Day Years Used Date Smoking Tobacco: Never Passive Smoke Exposure: Never Smokeless Tobacco: Never Alcohol Use Standard Drinks/Week Comments Not Currently 1 (1 standard drink = 0.6 oz pur e alcohol) [facility] Utilities Answer Date Recorded In the past 12 months has [employer] electric, gas, oil, or water company threatened [...] any time in the past 12 m [facility], were you homeless or living in a fci (including now)? No 01/10/2024 Interpersonal Safety Answer Date Record ed How often does anyone, manuela yung family, hit, punch or physically hurt you? 01/08/2024 How often does anyone, joselynstefanie aga family, insult, scream, curse or threaten [...] onset 12/12/2023 documented as of this encounter Progress Notes * Alisson Carreon MD - 03/13/2024 1712 EDT Per pulm: The PFTs are much improved from November, and remain in the normal range. In particular her DLCO is quite normal (102% predicted), and this is a sensitive marker of any intraparenchymal lung disease. Her latest chest CT from Jan was improved, as you know. I would say go ahead and resume [facility] but she will need to be monitored very closely for pulmonary toxicity documented in this encounter Plan of Treatment Upcoming Encounters Date Type Department Care Team (Late st Contact Info) Description 04/02/2024 10:30 EDT Appointment [facility] Interventional Radiology Unit [address] [place] [address] [phone] 04/02/2024 15:15 EDT Office Visit [facility] Surgical Oncology - [address] [phone] Adolfo Carreno MD [address] [place] [address] 2 [place] [phone] 04/05/2024 9:30 EDT Telemedicine [facility] Palliative Care Services [address] [place] [address] [phone] Chichi Woods MD [address] [place] [phone] 04/11/2024 15:00 EDT Telemedicine [facility] Hematology & Oncology - [address] [phone] Alisson Carreon MD [address] [place] [address] 2 [place] [phone] 04/13/2024 13:30 EDT Appointment [facility] Hematology & Oncology - [address] [phone] 04/13/2024 14:00 EDT Appointment [facility] Hematology & Oncology [address] [phone] 04/16/2024 10:00 EST Telemedicine [facility] - [facility] Palliative Care Services [address] [place] [address] [phone] Chichi Woods MD [address] [place] [phone] 04/24/2024 9:00 EST Appointment [facility] Radiology CT Outpatient - [address] [phone] 04/24/2024 11:00 EST Appointment [facility] Breast Imaging - [facility] S [address] [phone] 04/27/2024 12:00 EST Appointment [facility] Hematology & Oncology - [address] [phone] 05/02/2024 15:00 EST Telemedicine [facility] Hematology & Oncology [address] [phone] Alisson Carreon MD [address] [place] [address], [facility], [address] [place] [phone] 05/04/2024 10:15 EST Ancillary Procedure [facility] Cardiology - [place] [address] 05/04/2024 11:30 EST Appointment [facility] Hematology & Oncology - [address] [phone] 05/04/2024 12:00 EST Appointment [facility] Hematology & Oncology - [address] [phone] 06/12/2024 13:00 [facility] Radiology CT - [facility] [address] [place], [place] [phone] documented as of this encounter Visit Diagnoses Not on filedocumented in this encounter Care Teams Technical Applications Scientist Relationship Specialty Start Date End Date Linda Blancas MD [facility] [address] [place], [place] [address] PCP - General 01/06/11 Adolfo Carreno MD 111 [facility], [facility], [address] [place] [phone] General Surgery 04/26/19 documented as of this encounter
--- OUTSIDE RECORDS SUMMARY | 2024-03-20 14:31 | XMS_ITS | Referral Summary ---
Author Organization [facility] Address [address] [place] [address] Care Team Providers Care Copy Clerk Name Role Phone Linda Blancas MD Primary Care Provider [phone] Adolfo Carreno MD Unavailable [phone] Encounters Date Type Department Care Team Description 4 Telephone [facility] Hematology Oncology [address] [id number] Trinh Posey Social Work (Care coordination) 4 Orders Only [address] [phone] Trinh Posey Malignant neoplasm of female breast, unspecified estrogen receptor status, unspecified laterality, unspecified site of breast (HCC-CMS) (Primary Dx) [address] [phone] Trinh Posey Social Work (Check in) 4 14:00 EDT - 4 23:59 EDT Hospital Encounter [address] [phone] Malignant neoplasm of right female breast, unspecified estrogen receptor status, unspecified site of breast (HCC-CMS) (Primary Dx); Primary malignant neoplasm of breast with metastasis (HCC-CMS); Osteopenia of necks of both femurs Discharge Disposition: Home or Self Care 4 Telephone [facility] Pulmonology & Critical Care - [address] [address] Julia Salazar, RN Follow-up 4 Documentation Visit [facility] Gastroenterology [address] [address] Hugo Vergara MD PhD 4 Telephone [facility] Gastroenter[facility] [address] [address] Yovana Bowman, SHELLEY Results 4 Orders Only [facility] Hematology & Oncology [address] [address] Alisson Carreon MD 4 Orders Only [facility] Radiology - [address] [address] Allen Miller MD 4 Orders Only [facility] Interventional Radiology Unit [address] [place] [address] Moises Herrera MD 4 14:53 EDT - 4 23:59 EDT Hospital Encounter [facility] Pulmonary Function Lab - [address] [address] Pft Pedi, [facility] Pft Lab Acute hypoxic respiratory failure ([facility]-CMS) Discharge Disposition: Home or Self Care 4 13:00 EDT Office Visit [facility] Hematology & Oncology [address] [phone] Alisson Carreon MD Malignant neoplasm of right female breast, unspecified estrogen receptor status, unspecified site of breast (HCC-CMS) (Primary Dx); 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, unspecified laterality, 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HCC-CMS); Primary malignant neoplasm of breast with metastasis (HCC-CMS); Acute hypoxic respiratory failure (HCC-CMS) 4 7:15 EDT - 4 7:55 EDT Hospital Encounter [facility] Hematology & Oncology [address] [address] Primary malignant neoplasm of breast with metastasis (HCC-CMS); CAP (community acquired pneumonia) due to Pneumocystis jirovecii (HCC-CMS); Other ascites Discharge Disposition: Home or Self Care 4 7:56 EDT - 4 14:[address] [facility] Radiology CT - [address] [address] Primary malignant neoplasm of breast with metastasis (HCC-CMS) Discharge Disposition: Home or Self Care 4 Telephone [facility] [address] [address] Jackie Leach, DO Patient Outreach 4 11:00 EDT - 4 23:59 EDT Hospital Encounter [facility] Pul[facility] Function [facility] - [address] [address] Pft Pedi, [facility] Pft Lab Diffuse alveolar damage ([facility]) Discharge Disposition: Home or Self Care 4 9:30 EDT Office Visit [facility] [address] [place] [address] Chichi Woods MD Palliative care by specialist (Primary Dx); Malignant neoplasm of right female breast, unspecified estrogen receptor status, unspecified site of breast (HCC-CMS) 4 Telephone [facility] Hematology & Oncology [address] [phone] Alisson Carreon MD Appointment Related 4 Telephone [facility] Gastroenterology - [address] [phone] Yovana Bowman RN Results 4 15:42 EDT - 4 23:59 EDT Hospital Encounter [facility] Lab [address] [place] [address] Lab, [facility] Phlebotomy Other ascites Discharge Disposition: Home or Self Care 4 Telephone [facility] Hematology & Oncology [address] [phone] Trinh Posey Social Work (Check in) 4 14:00 EDT Telemedicine [facility] Interventional Radiology - [address] [phone] David Moya MD Metastases to the liver (HCC-CMS) (Primary Dx) 4 Telephone [facility] [address] [phone] Ana Quintanilla MD Appointment Related 4 Telephone [facility] [address] [phone] Yovana Bowman RN Results 4 Telephone [facility] Hematology & Oncology [address] [phone] Trinh Posey Social Work (support) 4 13:48 EDT - 4 23:59 EDT Hospital Encounter [facility] Interventional Radiology Unit [address] [place] [address] [id number] Uche Wilson, Johnson Mcmillan MD Ascites; Other ascites Discharge Disposition: Home or Self Care 4 9:30 EDT Telemedicine [facility] Hematology & Oncology [address] [phone] Alisson Carreon MD Malignant neoplasm of right female breast, unspecified estrogen receptor status, unspecified site of breast (HCC-CMS) (Primary Dx); 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, unspecified laterality, 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HCC-CMS); Primary malignant neoplasm of breast with metastasis (HCC-CMS); Acute hypoxic respiratory failure (HCC-CMS) 4 Telephone [facility] Hematology & Oncology [address] [address] Trinh Posey Social Work (support) 4 Orders Only [address] [address] Alisson Carreon MD 4 13:00 EDT Telemedicine [address] [address] Alisson Carreon MD Malignant neoplasm of right female breast, unspecified estrogen receptor status, unspecified site of breast (HCC-CMS) (Primary Dx); 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, unspecified laterality, 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HCC-CMS); Primary malignant neoplasm of breast with metastasis (HCC-CMS); Acute hypoxic respiratory failure (HCC-CMS) 4 Telephone [facility] Infectious Disease [address] [phone] Errol Ferrell MD Medication Management 4 Orders Only [address] [address] Alisson Carreon MD 4 Refill [facility] Disease [address] [address] Sandhya Aguilar RN Follow-up 4 Orders Only [facility] Hematology [address] [phone] Alisson Carreon MD Malignant neoplasm of right female breast, unspecified estrogen receptor status, unspecified site of breast (HCC-CMS) (Primary Dx) [address] 285331 Alisson aCrreon MD Follow-up 4 Telephone [facility] Hematology Oncology - [address] [address] Alisson Crareon MD Coordination Of Care 4 Telephone [facility] Hematology & Oncology [address] [address] Trinh Posey Social Work (support) 4 Telephone [facility] Hematology Oncology [address] [address] Alisson Carreon MD COVID-19 4 Telephone [facility] [address] [address] Yovana Bowman, SHELLEY Results 4 Orders Only [facility] Hematology & Oncology [address] [address] Ana Laura Winn RN Primary malignant neoplasm of breast with metastasis (HCC-CMS) (Primary Dx) 4 Orders Only [facility] Hematology & Oncology [address] [address] Kendra Worthy RN 4 Orders Only [facility] Hematology & Oncology [address] [address] Alisson Carreon MD Malignant neoplasm of right female breast, unspecified estrogen receptor status, unspecified site of breast (HCC-CMS) 4 15:15 EDT - 4 23:59 EDT Hospital Encounter [facility] Hematology & Oncology [address] [address] Malignant neoplasm of right female breast, unspecified estrogen receptor status, unspecified site of breast (HCC-CMS); Primary malignant neoplasm of breast with metastasis (HCC-CMS) Discharge Disposition: Home or Self Care 4 12:23 EDT - 4 15:14 EDT Hospital Encounter [facility] Inter[facility] Radiology Unit [address] [place] [address] Samuel Noble PA-C Other ascites (Primary Dx); Ascites Discharge Disposition: Home or Self Care 4 8:43 EDT - 4 12:22 EDT Hospital Encounter Malorie Espinoza [place] [address] [place], [place] [phone] Diffuse alveolar damage (HCC-CMS) Discharge Disposition: Home or Self Care 4 10:00 EDT Office Visit [facility] Infectious Disease - [address] [phone] Errol Ferrell MD CAP (community acquired pneumonia) due to Pneumocystis jirovecii (HCC-CMS) (Primary Dx) 4 Telephone [facility] Hematology & Oncology [address] [address] Alisson Carreon MD Appointment Related 4 Telephone [facility]astroenter[facility] - [address] [phone] Yovana Bowman, RN Results 4 Orders Only [facility] Hematology & Oncology [address] [phone] Marian Rodarte, SHELLEY Malignant neoplasm of right female breast, unspecified estrogen receptor status, unspecified site of breast (HCC-CMS) (Primary Dx) 4 6:51 EDT Hospital Encounter [facility]iology Unit [address] [place] [address] [phone] Uche Wilson PA-C Other ascites (Primary Dx); Ascites Discharge Disposition: Home or Self Care 4 10:27 EDT - 4 23:59 EDT Hospital Encounter [facility] Hematology & Oncology [address] [phone] Osteopenia of necks of both femurs (Primary Dx); Primary malignant neoplasm of breast with metastasis (HCC-CMS) Discharge Disposition: Home or Self Care 4 10:27 EDT - 4 23:59 EDT Hospital Encounter [facility] Hematology & Oncology [address] [address] Malignant neoplasm of right female breast, unspecified estrogen receptor status, unspecified site of breast (HCC-CMS); Primary malignant neoplasm of breast with metastasis (HCC-CMS) Discharge Disposition: Home or Self Care 4 11:00 EDT Office Visit [facility] Hematology & Oncology [address] [address] Nadeen Blood PA-C Primary malignant neoplasm of breast with metastasis (HCC-CMS) (Primary Dx); 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, unspecified laterality, 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HCC-CMS) 4 6:52 EDT - 4 10:26 EDT Hospital Encounter [facility] Non-Invasive Cardiology - [address] [address] Primary malignant neoplasm of breast with metastasis (HCC-CMS); Malignant neoplasm of right female breast, unspecified estrogen receptor status, unspecified site of breast (HCC-CMS); Abnormal electrocardiogram (ECG) (EKG) Discharge Disposition: Home or Self Care 4 Telephone [facility] Hematology & Oncology [address] [address] Nadeen Blood PA-C Appointment Related 4 Telephone [facility] [address] [address] Errol Ferrell MD Other 4 Refill [facility] Gastroenterology - [address] [address] Hugo Vergara MD PhD Medications Refill 4 10:14 EDT - 4 23:59 EDT Hospital Encounter [facility] Inter[facility]iology Unit [address] [place] [address] Mustapha Nguyen MD Other ascites; Malignant neoplasm of female breast, unspecified estrogen receptor status, unspecified laterality, unspecified site of breast (HCC-CMS) [C50.919]; Metastatic malignant neoplasm, unspecified site (HCC-CMS) [C79.9] Discharge Disposition: Home or Self Care 4 15:30 EDT Office Visit [facility] [address] [address] Ana Quintanilla MD Diffuse alveolar damage (HCC-CMS) (Primary Dx) 4 Orders Only [facility] Hematology & Oncology [address] [address] Lois Bautista RN 4 Telephone [facility] Hematology & Oncology [address] [address] Alisson Carreon MD Appointment Related 4 Orders Only [facility] Hematology & Oncology [address] [address] Marian Rodarte RN Malignant neoplasm of right female breast, unspecified estrogen receptor status, unspecified site of breast (HCC-CMS) (Primary Dx); Abnormal electrocardiogram (ECG) (EKG) 4 Telephone [facility] Hematology & Oncology [address] [address] Alisson Carreon MD Appointment Related 4 Telephone [facility] Hematology & Oncology [address] [address] Alisson Carreon MD Follow-up 4 Telephone [facility] [address] [phone] Errol Ferrell MD Other 4 Telephone [facility] Hematology & Oncology [address] [address] Nadeen Blood PANitaC Coordination Of Care 4 Telephone [facility] Hematology & Oncology [address] [address] Alisson Carreon MD Appointment Related 4 Telephone [facility] [address] [address] Hugo Vergara MD PhD Other 4 15:40 EDT - 4 16:19 EDT Hospital Encounter [facility] Hematology & Oncology Unit [address] [place] [address] Micky Sebastian MD Lambirth, Shea P, MD [...] Home or Self Care 4 Orders Only [facility] Hematology & Oncology [address] [address] Alisson Carreon MD 4 12:45 EDT Ancillary Procedure [facility] V[facility] Surgery [address] [address] 4 Telephone [facility] Hematology & Oncology [address] [address] Pérez Stevens RN Follow-up (Called Blayne Poe bedside nurse to get update on patient status) 4 Telephone [facility] [address] [place] [address] Pippa White RN Appointment Related 4 15:02 EDT - 4 16:42 EDT Surgery [facility] OR [address] [place] [address] Chelsea Logan MD Flexible bronchoscopy with possible broncheoalveolar lavage, possible needle biopsies, forceps biopsies and possible brushings. [[id number] (CPT??)] 4 Prep for Procedure [facility] [place] [address] of the chest (Primary Dx) 4 Travel 4 Orders Only [facility] Hematology & Oncology [address] [address] Alisson Carreon MD 4 Telephone [facility] [address] [address] Hugo Vergara MD PhD Other 4 Telephone [facility] [address] [address] Jessica Sheridan RN New/Evolving Symptoms 4 Orders Only [facility] Hematology Oncology [address] [address] Ana Laura Winn RN Primary malignant neoplasm of breast with metastasis (HCC-CMS) (Primary Dx) 4 16:45 EDT Telemedicine [facility] Hematology Oncology [address] [address] Alisson Carreon MD Primary malignant neoplasm of breast with metastasis (HCC-CMS) (Primary Dx); Malignant neoplasm of right female breast, unspecified estrogen receptor status, unspecified site of breast (HCC-CMS) 4 Orders Only [facility] Hematology & Oncology [address] [address] Quita Álvarez RN Malignant neoplasm of right female breast, unspecified estrogen receptor status, unspecified site of breast (HCC-CMS) (Primary Dx) 4 Orders Only [facility] Hematology Oncology [address] [address] Alisson Carreon MD Primary malignant neoplasm of breast with metastasis (HCC-CMS) (Primary Dx); Ground glass opacity present on imaging of lung 4 Orders Only [address] [address] Alisson Carreon MD 4 13:53 EDT - 4 23:59 EDT Hospital Encounter [facility] Lab [address] [place] [address] Lab, [facility] Other ascites Discharge Disposition: Home or Self Care 4 13:51 EDT - 4 13:52 EDT Hospital Encounter [facility] CT Scan [address] [place] [address] Primary malignant neoplasm of breast with metastasis (HCC-CMS) Discharge Disposition: Home or Self Care 4 8:14 EDT - 4 23:59 EDT Hospital Encounter [facility]iology Unit [address] [place], [place] 2098[address] Uche Wilson PA-C Behairy, Moataz, MD Other ascites Discharge Disposition: Home or Self Care 4 Orders Only [facility] XRAY [address] [place] [address] Aracely Kebede 4 Orders Only [facility] XRAY [address] [place], [place] [id number] Aracely Kebede 4 Telephone [facility] Hematology & Oncology [address] [phone] Alisson Carreon MD 4 Telephone [facility] [phone] Greer Ruby, SHELLEY Appointment Related (Scheduling paracentesis) [address] 674651 Alisson Carreon MD Appointment Related [address] [phone] Zulma Acevedo RN Follow-up 4 16:30 EDT - 4 23:59 EDT Hospital Encounter [facility] Lab [address] [place], [place] [id number] Lab, [facility] Other ascites Discharge Disposition: Home or Self Care [address] [phone] Greer Ruby, SHELLEY Results 4 Orders Only [facility] Hematology Oncology [address] [phone] Marian Rodarte, SHELLEY Primary malignant neoplasm of breast with metastasis (HCC-CMS) (Primary Dx) [address] [phone] Alisson Carreon MD New/Evolving Symptoms 4 Telephone [facility] Oncology [address] [address] Alisson Carreon MD Returning Call; Appointment Related 4 Telephone [facility] Hematology & Oncology [address] [address] Alisson Carreon MD Appointment Related 4 Orders Only [facility] Oncology [address] [address] Daily, SHELLEY Du 4 8:11 EDT - 4 11:48 EDT Hospital Encounter [facility]iology Unit [address] [place] [address] Uche Wilson, Johnson Mcmillan MD Other ascites; 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) [C79.9, C50.919] Discharge Disposition: Home or Self Care 4 11:49 EDT - 4 23:59 EDT Hospital Encounter [facility] Hematology & Oncology [address] [address] Malignant neoplasm of right female breast, unspecified estrogen receptor status, unspecified site of breast (HCC-CMS) (Primary Dx); Primary malignant neoplasm of breast with metastasis (HCC-CMS); Other ascites Discharge Disposition: Home or Self Care 4 13:30 EDT Office Visit [facility] & Oncology [address] [address] Alisson Carreon MD Malignant neoplasm of female breast, unspecified estrogen receptor status, unspecified laterality, unspecified site of breast (HCC-CMS) (Primary Dx); 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) [C79.9, C50.919]; Malignant neoplasm of right female breast, unspecified estrogen receptor status, unspecified site of breast (HCC-CMS); Primary malignant neoplasm of breast with metastasis (HCC-CMS) 4 11:49 EDT - 4 23:59 EDT Hospital Encounter [facility] Hematology & Oncology - [address] [address] Malignant neoplasm of right female breast, unspecified estrogen receptor status, unspecified site of breast (HCC-CMS) (Primary Dx); Primary malignant neoplasm of breast with metastasis (HCC-CMS); Osteopenia of necks of both femurs Discharge Disposition: Home or Self Care 4 Telephone [facility] Gastroenterology - [address] [address] Hugo Vergara MD PhD Other from Last 3 Months Allergies Active Allergy Reactions Criticality Noted Date [...] original. Patient has given permission for [facility] to verbally discuss the following information [...] to have medicare in June 2023. -Bebeto Ogdenantis 05/23/2023 12:35 Problem Noted Date Diagnosed Date Goals of care, counseling/discussion 01/17/2024 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 ([facility] ) 01/16/2024 Leukocytosis 01/13/2024 Ground glass opacity present on imaging of lung 01/12/2024 Mild malnutrition (HCC) (HCC-CMS) 01/11/[address] of the chest 01/09/2024 Acute hypoxic respiratory failure (HCC-CMS) 12/12 Shortness of breath 01/08/2024 Anemia, unspecified type 01/08/2024 Encephalopathy acute 12/15/2023 Metastatic malignant neoplasm (HCC-CMS) 12/12/19 24 Other ascites 12/12/2023 Acute pulmonary embolism wit [...] Overview: Added automatically from request for surgery [id number] Lipoma of back 06/19/2019 Overview: Added automatically from request for surgery [id number] Osteopenia 05/23/2019 Palliative care by specialist 10/03/2017 Malignant neoplasm of female breast ([facility]) Primary malignant neoplasm o f breast with metastasis ([facility]) 11/18/2016 Overview: IMO 09/11 Regulatory Update [...] low grade squamous intraepithelial lesion (LGSIL) 03/11/2009 Social History Tobacco Use Types Packs/Day Years Used Date Smoking Tobacco: Never Passive Smoke Exposure: Never Smokeless Tobacco: Never Alcohol Use Standard Drinks/Week Comments Not Currently 1 (1 standard drink = 0.6 oz pur e alcohol) [facility] Utilities Answer Date Recorded In the past 12 months has e electric, gas, oil, or water company [...] any time in the past 12 m onths, were you homeless or living in a skilled nursing (including now)? No 01/10/2024 Interpersonal Safety Answer [...] Sexual Orientation Bisexual 08/26/2022 10 :47 EDT Last Filed Vital Signs Vital Sign Reading [...] Body Mass Index 19.15 01/31/2024 0943 EDT Functional Status Functional Status Response Date of [...] No 12/12/2023 Cognitive Status Response Date of Assess ent Because of a physical, menta l, or emotional condition, do you have serious difficulty concentrating, remembering, or making decisions? (5 years old or older) Yes-since this admission - new onset 12/12/2023 Plan of Treatment Upcoming Encounters Date Type Department Care Team (Late st Contact Info) Description 04/02/2024 10:30 EDT Appointment [facility] [address] [place] [address] [phone] 04/02/2024 15:15 EDT Office Visit [facility] Surgical Oncology - [address] [phone] Adolfo Carreno MD [address] [place] [address], [facility] [address] [place] [phone] 04/05/2024 9:30 EDT Telemedicine [facility] - [facility] [address] [place], [place] 244601 Chichi Woods MD [address] [place] [address], [address] [place] [phone] 04/11/2024 15:00 EDT Telemedicine [facility] Hematology & Oncology - [address] [phone] Alisson Carreon MD [address] [place] [address], Level [address] [place] [phone] 04/13/2024 13:30 EDT Appointment [facility] Hematology & Oncology - [address] [id number] 04/13/2024 14:00 EDT Appointment [facility] Hematology & Oncology - [address] [id number] 04/16/2024 10:00 EST Telemedicine [facility] - [facility] [address] [place] [address] [phone] Chichi Woods MD [address] [place] [address], [address] [phone] 04/24/2024 9:[address] [facility] Radiology CT Outpatient - [address] [address] 04/24/2024 11:00 EST Appointment [facility] - [facility] [address] [phone] 04/27/2024 12:00 EST Appointment [facility] Hematology & Oncology [address] 616361 05/02/2024 15:00 EST Telemedicine [facility] Hematology & Oncology - [address] [phone] Alisson Carreon MD [address] [place] [address], [address] [place] [phone] 05/04/2024 10:15 EST Ancillary Procedure [facility] - [address] [place] [address] 05/04/2024 11:30 EST Appointment [facility] Hematology & Oncology - [address] [address] 05/04/2024 12:00 EST Appointment [facility] Hematology & Oncology - [address] [address] 06/12/2024 13:00 EST Appointment [facility] Radiology CT - [address] [address] Medical Devices Implanted Type Area Occupational Health Nursing Director Device Identifier Shelf Expiration Date Model / Serial / Lot Implant Breast Gel Smooth 355cc [id number] (Mr Escamilla) Implanted:Qty: 1 on 05/30/2019 by Tylor Boss MD FACS at [facility] Breast Implant [employer] 10/19/2023 [id number] / [id number] / Implant Breast Gel Smooth 650cc Memorygel [id number] (Mr Escamilla) Implanted:Qty: 1 on 05/30/2019 by Tylor Boss MD FACS at [facility] Breast Implant [employer] 01/22/2023 [id number] / [id number] / Port Implantable [employer] Port Isp 8fr With Groshong Tip - [id number] Implanted:Qty: 1 on 11/03/2023 by David Moya MD at [facility] CVAD Right: Chest [employer] [employer] [id number] 01/10/2025 [id number] / / [id number] Device Embolization Microsphere 20-60um Sir Spheres [id number] (Mr Escamilla) Implanted:Qty: 1 on 04/08/2022 by David Moya MD at [facility] Embolic N/A: Liver [employer] [id number]-Y001 / / Description:Non metallic per [employer]; RD 08/06/22 Device Embolization Microsphere 20-60um Sir Spheres [id number] (Mr Escamilla) Implanted:Qty: 1 on 05/14/2022 at [facility] Embolic N/A: Liver [employer] SIR-Y001 / / Description:Non metallic per [employer]; RD 08/06/22 Tissue 8cm 2 X 4cm Acellular Human Skin Freeze Dried Non Meshed Alloderm-[id number] (Breast-Mr Safe) Implanted:Qty: 1 on 09/08/2020 by Tylor Boss MD FACS at [facility] Tissue Right: Nipple Shape [employer] [id number] 09/10/2021 [id number] / . / [id number] L5-S1 Fusion-Mr Safe Description:L5-S1 fusion, sa [...] Routine 01/25/2024 11:11 EDT Other ascites NON CELL FEED DEPARTMENT SUPERVISOR/FNA CYTOLOGY Routine 01/25/2024 11:03 EDT Other ascites [...] MANUAL Today 01/12/2024 19:44 EDT MISCELLANEOUS TEST, [place] Today 01/12/2024 19:44 EDT ANAPLASMA AND BABESIA TESTING BY PCR Routine 01/12/2024 19:44 EDT MISCELLANEOUS TEST, [place] Routine 01/12/2024 19:44 EDT MISCELLANEOUS TEST, [place] Routine 01/12/2024 19:44 EDT PHOSPHORUS Routine 01/12/2024 [...] BRONCHOSCOPY PROCEDURE Routine 01/11/2024 16:53 EDT NON CELL FEED DEPARTMENT SUPERVISOR/FNA CYTOLOGY Routine 01/11/2024 16:50 EDT DIFFERENTIAL, LAVAGE [...] AEROBES), OTHER Routine 12/20/2023 8:56 EDT NON CELL FEED DEPARTMENT SUPERVISOR/FNA CYTOLOGY Routine 12/20/2023 8:55 EDT Other ascites [...] above interpretation and agree with the findings. [id number] Narrative 03/13/2024 11:[address] CHEST W [...] Old bilateral rib fractures. Resulting Agency Comment [id number] Procedure Note Mallorie Andrews MD - 03/13/2024 CT CHEST W CONTRAST 03/13/2024 8:08 AM Clinical History/Comments: metastatic BC. History of PJP pneumonia and pneumonitis. Technique: CT scan of the chest with intravenous contrast material was performed. This CT used either dose modulation and/or iterative reconstructiontechniques to lower radiation dose. Comparison: Chest CT studies 01/05/2024 and 02/07/2024. Concurrent CT abdomen [id number]/13/2024. Findings: Lower neck: Right jugular approach chest [...] the above interpretation andagree with the findings. 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 [id number] Narrative 03/13/2024 16:[address] ABDOMEN PELVIS [...] No new suspicious osseous lesions are present. Mechatronics Technician: No additional findings. Resulting Agency Comment [id number] Procedure Note Tylor Melendez MD - 03/13/2024 [...] unchanged. No newsuspicious osseous lesions are present. Mechatronics Technician: No additional findings. IMPRESSION Stable to slight decrease in size and diminished enhancement of numeroushepatic metastases. 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 Interval decrease in volume of ascites. Interval decrease in conspicuity of mucosal hyperenhancement of the smallbowel which could be explained by infectious enteritis or be medicationrelated. Cholelithiasis without cholecystitis. 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 [id number] Augustina Colin MD PhD IMG CT ORDERABLES * T CELL SUBSETS (03/13/2024 7:41 EDT) % CD3 79 56 - 84 % 03/13/2024 13:43 [facility] % CD4 63 31 - 64 % 03/13/2024 13:43 [facility] % CD8 16 9 - 39 % 03/13/2024 13:43 [facility] Absolute CD3 1,284 840 - 2,669 Cells/uL 03/13/2024 13:43 [facility] Absolute CD4 1,030 488 - 1,734 Cells/uL 03/13/2024 13:43 [facility] Absolute CD8 262 154 - 1,097 Cells/uL 03/13/2024 13:43 [facility] 4/8 Ratio 3.93 >=0.90 03/13/2024 13:43 [facility] Blood VENOUS BLOOD / Unknown Venipuncture / Unknown 03/13/2024 7:41 EDT 03/13/2024 8:01 EDT Errol Ferrell MD IMMUNOLOGY AND S EROLOGY ORDERABLES Performing Organization Address City/State/[facility] Co de Phone Number [facility] [address] [place] [address] * (ABNORMAL) COMPLETE BLOOD COUNT AND DIFFERENTIAL (03/13/2024 7:41 EDT) Only the most recent of7 resultswithin the time period is included. Pathologist [facility] WBC 9.68 4.00 - 12.40 K/cmm 03/13/2024 8:06 [facility] RBC 3.72(L) 3.86 - 5.04 M/cmm 03/13/2024 8:06 [facility] Hemoglobin 13.0 11.6 - 15.2 g/dL 03/13/2024 8:06 [facility] HCT 38.3 34.9 - 44.4 % 03/13/2024 8:06 [facility] MCV 103(H) 81 - 98 fL 03/13/2024 8:06 [facility] MCH 34.9(H) 26.7 - 33.3 pg 03/13/2024 8:06 [facility] MCHC 33.9 32.1 - 35.9 g/dL 03/13/2024 8:06 [facility] RDW-CV 14.9(H) <14.7 % 03/13/2024 8:06 [facility] RDW-SD 56.4(H) <50.4 fl 03/13/2024 8:06 [facility] PLT 228 141 - 377 K/cmm 03/13/2024 8:06 [facility] MPV 10.3 9.5 - 12.7 fL 03/13/2024 8:06 [facility] % Neutrophils 69.6 Not Indicated % 03/13/2024 8:06 [facility] % Lymphocytes 14.2 Not Indicated % 03/13/2024 8:06 [facility] % Monocytes 13.7 Not Indicated % 03/13/2024 8:06 [facility] % Eosinophils 1.3 Not Indicated % 03/13/2024 8:06 [facility] % Basophils 0.5 Not Indicated % 03/13/2024 8:06 [facility] % Immature Grans 0.7 Not Indicated % 03/13/2024 8:06 [facility] Absolute Neutrophils 6.73 2.20 - 8.85 K/cmm 03/13/2024 8:06 [facility] Absolute Lymphocytes 1.37 1.09 - 3.30 K/cmm 03/13/2024 8:06 [facility] Absolute Monocytes 1.33(H) 0.10 - 0.80 K/cmm 03/13/2024 8:06 [facility] Absolute Eosinophils 0.13 0.03 - 0.61 K/cmm 03/13/2024 8:06 [facility] ABS Basophils 0.05 0.01 - 0.11 K/cmm 03/13/2024 8:06 [facility] Absolute Immature Grans 0.07(H) 0.00 - 0.06 K/cmm 03/13/2024 8:06 [facility] Type of Differential: Auto 03/13/2024 8:06 [facility] Blood VENOUS BLOOD / Unknown Venipuncture / Unknown 03/13/2024 7:41 EDT 03/13/2024 7:52 EDT uAgustina Colin MD PhD PACKAGES & DNA PROBE ORDERABLES [facility] [address] [place] [address] * (ABNORMAL) COMPREHENSIVE METABOLIC PANEL (ONCOLOGY USE ONLY-INC MG) (03/13/2024 7:38 EDT) Only the most recent of4 resultswithin the time period is included. Sodium 132(L) 136 - 145 mmol/L 03/13/2024 8:48 [facility] Potassium 4.3 3.5 - 5.0 mmol/L 03/13/2024 8:48 [facility] Chloride 94(L) 96 - 110 mmol/L 03/13/2024 8:48 [facility] CO2 Total 26 22 - 32 mmol/L 03/13/2024 8:48 [facility] Glucose 135(H) 70 - 99 mg/dl 03/13/2024 8:48 [facility] BUN 24 10 - 26 mg/dL 03/13/2024 8:48 [facility] Creatinine 0.70 0.52 - 1.04 mg/dL 03/13/2024 8:48 [facility] eGFR 98 >60 mL/min/1.7 3m2 03/13/2024 8:48 [facility] Total Protein 7.5 6.3 - 8.2 g/dL 03/13/2024 8:48 [facility] Albumin 3.6 3.4 - 4.9 g/dL 03/13/2024 8:[address] [facility] Alkaline Phosphatase 421(H) 38 - 126 U/L 03/13/2024 8:[address] [facility] AST 61(H) 15 - 46 U/L 03/13/2024 8:[address] [facility] ALT 36(H) <35 U/L 03/13/2024 8:[address] [facility] Bilirubin, Total 1.3 <1.4 mg/dL 03/13/20 8:[address] [facility] Calcium 10.1 8.5 - 10.5 mg/dL 03/13/2024 8:[address] [facility] Magnesium 2.1 1.7 - 2.8 mg/dL 03/13/2024 8:[address] [facility] Albumin/Globulin Ratio 0.9(L) 1.0 - 2.5 03/13/2024 8:[address] [facility] Anion Gap 12 5 - 14 mmol/L 03/13/2024 8:[address] [facility] Blood VENOUS BLOOD / Unknown Venipuncture / Unknown 03/13/2024 7:38 EDT 03/13/2024 7:52 EDT Augustina Colin MD PhD CHEMISTRY & BLOOD GA S ORDERABLES [facility] [address] [place] [address] * (ABNORMAL) CA 27.29 (03/13/2024 7:38 EDT) Only the most recent of5 resultswithin the time period is included. CA 27.29 128.0(H) <38.0 U/mL 03/14/2024 11:[address] [facility] Comment: NOTE: Serum CA 27.29 concentration should not be interpreted as absolute evidence for the presence or absence of malignant disease. Assayed on Siemens [employer] XPT using chemiluminescent technology. ??Values obtained by using different assay methods cannot be used interchangeably. Blood VENOUS BLOOD / Unknown Venipuncture / Unknown 03/13/2024 7:38 EDT 03/13/2024 7:52 EDT Alisson Carreon MD CHEMISTRY & BLOOD G ORDERABLES Performing Organization Address [facility] Co de Phone Number [facility] [address] [place] [address] * PHOSPHORUS (03/13/2024 7:38 EDT) Only the most recent of7 resultswithin the time period is included. Phosphorus 4.1 2.5 - 4.5 mg/dL 03/16/2024 15:[address] [facility] Blood VENOUS BLOOD / Unknown Venipuncture / Unknown 03/13/2024 7:38 EDT 03/13/2024 7:52 EDT Alisson Carreon MD CHEMISTRY & BLOOD G ORDERABLES Performing Organization Address [facility] Co de Phone Number [facility] [address], [place] [phone] * (ABNORMAL) BASIC METABOLIC PANEL (BMP) (03/01/2024 15:56 EDT) Only the most recent of16 resultswithin the time period is included. Sodium 133(L) 136 - 145 mmol/L 03/01/2024 16:[address] [facility] Potassium 3.8 3.5 - 5.1 mmol/L 03/01/2024 16:[address] [facility] Chloride 96 96 - 107 mmol/L 03/01/2024 16:[address] [facility] CO2 Total 32 21 - 32 mmol/L 03/01/2024 16:[address] [facility] Anion Gap 5 5 - 14 mmol/L 03/01/2024 16:[address] [facility] Glucose 142(H) 70 - 99 mg/dl 03/01/2024 16:[address] [facility] Calcium 9.6 8.5 - 10.1 mg/dL 03/01/2024 16:[address] [facility] BUN 19 7 - 25 mg/dL 03/01/2024 16:[address] [facility] Creatinine 0.94 0.55 - 1.02 mg/dL 03/01/2024 16:[address] [facility] eGFR 69 >60 mL/min/1.73 m2 03/01/2024 16:[address] [facility] Blood VENOUS BLOOD / Unknown Venipuncture / Unknown 03/01/2024 15:56 EDT 03/01/2024 16:03 EDT Hugo Vergara MD PhD CHEMISTRY & BLO OD GAS ORDERABLES [facility] [address] [place] [address] * IR PARACENTESIS-RADIOLOGY (02/22/2024 14:50 EDT) Anatomical Region Laterality Modality N/A X-Ray Angiograph y 02/22/2024 15:5 7 EDT Impressions 02/22/2024 15:57 EDT Successful, uncomplicated paracentesis using sonographic guidance yielding 1.2 L fluid. ?? LUNA Arguelles, PA-C Interventional Radiology I have personally reviewed the images and the above interpretation and agree with the findings. [id number] Narrative 02/22/2024 15:57 EDT IR PARACENTESIS-RADIOLOGY ??02/22/2024 [...] procedure well without complication. Resulting Agency Comment [id number] Procedure Note Johnson Kwon MD - 02/22/2024 [...] sonographic guidance yielding1.2 L fluid. LUNA Arguelles, GRISEL Interventional Radiology I have personally reviewed the images and the above interpretation andagree with the findings. [id number] Hugo Vergara MD PhD IMG IR ORDERABL ES * MISCELLANEOUS TEST, NON [place] (02/07/2024 17:55 EDT) Test Name [place] [id number] CCx 02/20/2024 9:52 EDT [facility] Blood VENOUS BLOOD / Unknown Venipuncture / Unknown 02/07/2024 17:55 EDT 02/07/2024 17:55 EDT Narrative [facility] - 02/20/2024 9:52 EDT See scanned/supplementary report. Alisson Carreon MD CHEMISTRY & BLOOD G ORDERABLES [facility] [address] [place] [address] * IR PARACENTESIS-RADIOLOGY (02/07/2024 14:11 EDT) Anatomical [...] above interpretation and agree with the findings. [id number] Narrative 02/07/2024 15:30 EDT IR PARACENTESIS-RADIOLOGY ??02/07/2024 [...] performance of this procedure. Resulting Agency Comment [id number] Procedure Note Guerrero Palumbo MD - 02/07/2024 [...] PA-C The procedure was performed by TANK Garcia in interventionalradiology. Direct supervision was provided by the attending physician, . I have personally reviewed the images and the above interpretation andagree with the findings. [id number] Hugo Vergara MD PhD IMG IR ORDERABL [...] similar distribution and difficult to entirely exclude. [id number] Narrative 02/07/2024 10:[address] CHEST WO [...] posterior right sixth rib. Resulting Agency Comment [id number] Procedure Note Mallorie Andrews MD - 02/07/2024 [...] a similardistribution and difficult to entirely exclude. [id number] Pavan Bianchi MD IMG CT ORDERABLES * ORDERS - SCANNED (02/01/2024 15:26 EDT) 02/01/2024 15:2 6 EDT Scan 2 Fabric Designer ADMISSION ORDERABLE S * TRANSTHORACIC ECHO (TTE) [...] color Doppler.The study was interpreted by [facility]. Pertinent images and digital [...] above interpretation and agree with the findings. [id number] Narrative 01/31/2024 11:44 EDT IR PARACENTESIS-RADIOLOGY ??01/31/2024 [...] procedure well without complication. Resulting Agency Comment [id number] Procedure Note Guerrero Palumbo MD - 01/31/2024 [...] the above interpretation andagree with the findings. [id number] Quita Babb PA-C IMG IR ORDERAB LES * IR PARACENTESIS-RADIOLOGY (01/25/2024 12:00 EDT) Anatomical Region Laterality Modality N/A X-Ray Angiograph y 01/25/2024 15:3 8 EDT Impressions 01/25/2024 15:38 EDT Successful removal of 1.5 liters of ascitic fluid from the abdomen. [id number] Narrative 01/25/2024 15:38 EDT Ultrasound-guided paracentesis; 01/25/2024 [...] anesthesia, and real-time ultrasound guidance, a 5 Czech sheath needle was advanced into the pocket [...] this procedure was 0. Resulting Agency Comment [id number] Procedure Note Mustapha Nguyen MD - 01/25/2024 [...] lidocaine anesthesia, and real-timeultrasound guidance, a 5 Czech sheath needle was advanced into the pocketof [...] liters of ascitic fluid from the abdomen. [id number] Jackie Juan MD [facility] IR ORDERABLES * NON CELL FEED DEPARTMENT SUPERVISOR/FNA CYTOLOGY (01/25/2024 11:03 EDT) Only the most recent of3 resultswithin the time period is included. Note to Patient The following pathology results have been interpreted by your pathologist and may be available to you before your health provider has had the opportunity to review them. Please allow time for your provider to receive these results and explore management options, if applicable. 01/26/2024 17:05 [facility] Final Diagnosis A. ASCITIC FLUID, CYTOLOGIC EVALUATION: - Negative for malignant cells. - Reactive mesothelial cells and histiocytes in a background of mixed inflammation. 01/26/2024 17:05 [facility] Diagnosis Comment Prior ascitic fluids ([id number] and [id number]) are reviewed and shows similar reactive mesothelial cells and histiocytes. Medical Staff Assistant slides of this case were reviewed at the intradepartmental consultation conference. 01/26/2024 17:05 [facility] Attestation There was significant resident/fellow involvement in the diagnostic evaluation of this case. By the signature below, the attending physician certifies that they have personally conducted a gross and/or microscopic examination of the described specimens and rendered or confirmed the above diagnosis. 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 50cc's of cloudy yellow fluid were received and processed by selective cellular enhancement technique. 01/26/2024 17:05 [facility] Resident/Fell ow: Kimberly Tong DO 01/26/2024 17:05 [facility] Performing Lab [facility] 01/26/2024 17:05 [facility] Scanned Images 01/26/2024 17:[address] [facility] Fluid ASCITIC FLUID / Unknown 01/25/2024 11:03 EDT 01/25/2024 13:48 EDT Hugo Vergara MD PhD PATHOLOGY ORDER ANUSHA Performing Organization Address City/[facility]/ZIP Co de Phone Number [facility] [address] [place] [address] * TOTAL PROTEIN, FLUID (01/25/2024 11:02 EDT) Total Protein, Fluid <2.0 See Note g/dL 01/25/2024 12:[address] [facility] Comment: Ascitic fluid Reference range unavailable. Clinical correlation required. This Fluid Total Protein assay was developed and its performance characteristics determined by [facility]. ??It has not been cleared or approved by the US Food and Drug Administration. Fluid ASCITIC FLUID / Unknown 01/25/2024 11:02 EDT 01/25/2024 12:08 EDT Hugo Vergara MD PhD GEN LAB UNIT CO LLECT ORDERABLES Performing Organization Address City/[facility]/ZIP Co de Phone Number [facility] [address], [place] [address] * (ABNORMAL) COMPLETE BLOOD COUNT (01/19/2024 6:08 EDT) Only the most recent of8 resultswithin the time period is included. WBC 11.96 4.00 - 12.40 K/cmm 01/19/2024 6:[address] [facility] RBC 2.25(L) 3.86 - 5.04 M/cmm 01/19/2024 6:[address] [facility] Hemoglobin 8.3(L) 11.6 - 15.2 g/dL 01/19/2024 6:[address] [facility] HCT 25.8(L) 34.9 - 44.4 % 01/19/2024 6:[address] [facility] MCV 115(H) 81 - 98 fL 01/19/2024 6:[address] [facility] MCH 36.9(H) 26.7 - 33.3 pg 01/19/2024 6:[address] [facility] MCHC 32.2 32.1 - 35.9 g/dL 01/19/2024 6:[address] [facility] RDW-CV 24.4(H) <14.7 % 01/19/2024 6:[address] [facility] RDW-SD 101.2(H) <50.4 fl 01/19/2024 6:[address] [facility] PLT 127(L) 141 - 377 K/cmm 01/19/2024 6:22 [facility] MPV 10.5 9.5 - 12.7 fL 01/19/2024 6:[address] [facility] Blood VENOUS BLOOD / Unknown Venipuncture / Unknown 01/19/2024 6:08 EDT 01/19/2024 6:12 EDT Masha Russell MD HEMATOLOGY & PF4 ORD ERABLES [facility] [address], [place] [id number] * FLUID CELL COUNT (01/18/2024 14:20 EDT) Only the most recent of3 resultswithin the time period is included. RBC, Fluid <10,000 /cmm 01/18/2024 15:[address] [facility] Nucleated Cells, fluid 207 /cmm 01/18/2024 15:[address] [facility] Comment, fluid Clear Yellow 01/18/2024 15:[address] [facility] Fluid ASCITIC FLUID / Unknown 01/18/2024 14:20 EDT 01/18/2024 14:51 EDT Dalila Painting MD HEMATOLOGY & PF4 ORD ERABLES Performing Organization Address [facility] Co de Phone Number [facility] [address] [place] [address] * FLUID DIFFERENTIAL (01/18/2024 14:20 EDT) Only the most recent of3 resultswithin the time period is included. Neutrophils Fluid Relative 31 % 01/18/2024 17:[address] [facility] Lymphocytes Fluid Relative 12 % 01/18/2024 17:[address] [facility] Barrow/Macrophage 53 % 17:[address] [facility] Mesothelial Cells Fluid Relative 4 % 01/18/2024 17:[address] [facility] Fluid ASCITIC FLUID / Unknown 01/18/2024 14:20 EDT 01/18/2024 14:51 EDT Dalila Painting MD GEN LAB UNIT COLLECT ORDERABLES Performing Organization Address [facility] Co de Phone Number [facility] [address] [place] [address] * US LOWER VENOUS DUPLEX (DVT) RIGHT [...] Medical History Anticoagulation therapy. Kaylah Vieira MD [facility] US VASCULAR ORD ERABLES * SARS COV2, FLU A/B, RSV DETECT BY PCR (01/16/2024 16:41 EDT) Only the most recent of2 resultswithin the time period is included. FLU A RNA Result (FLARES) Negative Negative 01/16/2024 17:[address] [facility] FLU B RNA Result (FLBRES) Negative Negative 01/16/2024 17:[address] [facility] RSV RNA Result (RSVRES) Negative Negative 01/16/2024 17:[address] [facility] COVID-19 rt-PCR Result Negative Negative 01/16/2024 17:[address] [facility] Comment: Negative results do not preclude 2019-nCoV infection and should not be used as the sole basis for treatment or other patient management decisions. Negative results must be combined with clinical observations, patient history, and epidemiological information. Performed on the [employer] GeneXPin or Peg Instrument Swab NASOPHARYNGEAL STRUCTURE / Unknown Swab / Unknown 01/16/2024 16:41 EDT 01/16/2024 16:50 EDT Dalila Painting MD MICROBIOLOGY - GENER AL ORDERABLES Performing Organization Address City/State/[facility] Co de Phone Number [facility] [address] [place] [phone] * (ABNORMAL) DIFFERENTIAL, AUTOMATED MANUAL (01/16/2024 8:35 EDT) Only the most recent of2 resultswithin the time period is included. % Neutrophils 88.6 Not Indicated % 01/16/2024 9:23 [facility] % Lymphocytes 7.0 Not Indicated % 01/16/2024 9:23 [facility] % Monocytes 4.4 Not Indicated % 01/16/2024 9:23 [facility] Absolute Neutrophils 22.66(H) 2.20 - 8.85 K/cmm 01/16/2024 9:23 [facility] Absolute Lymphocytes 1.79 1.09 - 3.30 K/cmm 01/16/2024 9:23 [facility] Absolute Monocytes 1.13(H) 0.10 - 0.80 K/cmm 01/16/2024 9:23 [facility] Type of Differential: Manual 01/16/2024 9:[address] [facility] Blood BLOOD SAMPLE TAKEN FROM CENTRAL LINE / Unknown Port / Unknown 01/16/2024 8:35 EDT 01/16/2024 8:43 EDT Kaylah Vieira MD HEMATOLOGY & PF4 OR DERABLES [facility] [address], [place] [phone] * XR CHEST 2 VIEWS (01/16/2024 7:12 EDT) Anatomical Region Laterality Modality Computed Radiogr aphy 01/16/2024 8:50 EDT Impressions 01/16/2024 8:50 EDT 1. ??No acute abnormality. 2. ??Improving bilateral linear atelectasis. 3. ??Right chest port and catheter. I have personally reviewed the images and the above interpretation and agree with the findings. [id number] Narrative 01/16/2024 8:50 EDT XR CHEST 2 [...] overlying the lumbar spine. Resulting Agency Comment [id number] Procedure Note Evan Garcia MD - 01/16/2024 [...] the above interpretation andagree with the findings. [id number] James Izaguirre MD IMG DIAGNOSTIC AMANDA GING ORDERABLES * (ABNORMAL) UA CHEMICAL & SEDIMENT + REFLEX TO CULTURE (01/16/2024 6:39 EDT) Color UA Yellow Colorless, Yellow 01/16/2024 6:54 [facility] Clarity UA Clear Clear 01/16/2024 6:54 [facility] Glucose UA Negative Negative mg/dL 01/16/2024 6:54 [facility] Bilirubin UA 1+(A) Negative 01/16/2024 6:54 [facility] Ketones UA Trace(A) Negative 01/16/2024 6:54 [facility] Specific [place], Urine 1.022 1.001 - 1.030 01/16/2024 6:54 [facility] Blood UA Negative Negative 01/16/2024 6:54 [facility] Urobilinogen UA 1.0 0.2-1.0 mg/dL mg/dL 01/16/2024 6:54 [facility] Nitrite UA Negative Negative 01/16/2024 6:54 [facility] Leukocyte Esterase UA 2+(A) Negative 01/16/2024 6:54 [facility] Protein UA Trace(A) Negative mg/dL 01/16/2024 6:54 [facility] pH, UA 6.0 <8.5 01/16/2024 6:[address] [facility] Urine RBC Count, Auto 0 - 2 0 - 2 Cells/HPF 01/16/2024 6:[address] [facility] Urine WBC Count, Auto 10 - 50(A) 0 - 3 Cells/HPF 01/16/2024 6:[address] [facility] Urine Squamous Count, Auto None Seen None Seen Cells/HPF 01/16/2024 6:[address] [facility] Urine Hyaline Cast Count, Auto <=10 <=10 Casts/LPF 01/16/2024 6:[address] [facility] Urine Bacteria Count, Auto None Seen None Seen Bacteria/HP F 01/16/2024 6:[address] [facility] Urine URINE SPECIMEN OBTAINED BY CLEAN CATCH PROCEDURE / Unknown Urine Collect / Unknown 01/16/2024 6:39 EDT 01/16/2024 6:[address] [facility] - 01/16/2024 6:54 EDT A Urine Culture test has been reflexively ordered based on result criteria from the Urine Sediment Analysis. Urine Sediment Analysis results are unreliable on urines that are unrefrigerated for >2 hrs or refrigerated >8 hrs. James Izaguirre MD URINALYSIS ORDERAB LES [facility] [address] [place] [address] * (ABNORMAL) BACTERIAL CULTURE, URINE (01/16/2024 6:39 EDT) Organism ID 10, 000 to 100,000 CFU/ml Enterococcus faecalis(A) VITEK SUSCEPTIBILITY 01/19/2024 8:[address] [facility] Comment: Ampicillin or amoxicillin are the drugs of choice for treating uncomplicated cystitis caused by Enterococcus (including VRE). Organism ID 10, 000 to 100,000 CFU/ml Usual urogenital antonia 01/19/2024 8:[address] [facility] Urine URINE SPECIMEN OBTAINED BY CLEAN CATCH PROCEDURE / Unknown Urine Collect / Unknown 01/16/2024 6:39 EDT 01/16/2024 6:54 EDT Narrative Organism Antibiotic Method Susceptibility Enterococcus faecalis Nitrofurantoin VITEK SUSCEPTIBIL ITY <=16 ug/mL: Susceptible Enterococcus faecalis Vancomycin VITEK SUSCEPTIBILIT Y 1 ug/mL: Susceptible James Izaguirre MD MICROBIOLOGY - GEN ERAL ORDERABLES Performing Organization Address City/[facility]/ZIP Co de Phone Number [facility] [address] [place] [address] * BACTERIAL CULTURE, BLOOD (01/16/2024 6:28 EDT) Only the most recent of5 resultswithin the time period is included. Organism ID No Growth at 5 days 01/21/2024 6:[address] [facility] Blood VENOUS BLOOD / Unknown Venipuncture / Unknown 01/16/2024 6:28 EDT 01/16/2024 6:35 EDT James Izaguirre MD MICROBIOLOGY - GEN ERAL ORDERABLES Performing Organization Address City/[facility] Co de Phone Number [facility] [address] [place] [phone] * MAGNESIUM (01/14/2024 5:31 EDT) Only the most recent of6 resultswithin the time period is included. Magnesium 2.2 1.7 - 2.8 mg/dL 01/14/2024 6:[address] [facility] Blood VENOUS BLOOD / Unknown Port / Unknown 01/14/2024 5:31 EDT 01/14/2024 5:38 EDT Kerry Jimenez MD CHEMISTRY & BLOOD GA S ORDERABLES Performing Organization Address City/[facility]/ZIP Co de Phone Number [facility] [address], [place] [phone] * HISTOPLASMA AND BLASTOMYCES AG, EIA, URINE (01/13/2024 1:15 EDT) Histoplasma/Blasto myces Ag Result Not Detected Not Detected 01/17/2024 14:02 EDT [facility] Comment: No antigen from Histoplasma or Blastomyces detected. ?? False negative results may occur depending on extent of disease, and/or site of infection. ?? Repeat testing on a new specimen if clinically indicated. ?? Histoplasma/Blasto myces Ag Value Not Detected ng/mL 01/17/2024 14:02 EDT [facility] Comment: ADDITIONAL INFORMATION This test was developed and its performance characteristics determined by [facility] in a manner consistent with CLIA requirements. This test has not been cleared or approved by the U.S. Food and Drug Administration. Test Performed by: [facility] [place] [address] Alum Plant Operator: Abby Rubi Ph.D.; CLIA# [id number] Urine URINE / Unknown Urine Collect / Unknown 01/13/2024 1:15 EDT 01/13/2024 1:21 EDT Renee Garcia MD URINALYSIS ORDERABLE S [facility] [address] [place] [address] * ANAPLASMA AND BABESIA TESTING BY PCR (01/12/2024 19:44 EDT) Pathologist [facility] Anaplasma phagocytophilum Negative Negative 01/13/2024 10:[address] [facility] Babesia Species Negative Negative 10:[address] [facility] Blood VENOUS BLOOD / Unknown Venipuncture / Unknown 01/12/2024 19:44 EDT 01/12/2024 19:[address] [facility] - 01/13/2024 10:45 EDT This test was developed and its performance characteristics determined by [facility]. It has not been cleared or [...] MD CHEMISTRY & BLOOD GA S ORDERABLES [facility] [address] [place] [address] * MISCELLANEOUS TEST, [place] (01/12/2024 19:44 EDT) Only the most recent of3 resultswithin the time period is included. [facility] Miscellaneous Test, [place] SEE NOTE 01/16/2024 15:56 EDT [facility] Comment: Test ? Result ? Flag ??Unit ??RefValue M pneumoniae PCR + Macrolide Reflex ??Specimen source ?bronchial lavage ?M. pneumoniae PCR ?Negative ? Negative ? ADDITIONAL INFORMATION ?This test was developed and its performance characteristics ?determined by [facility] in a manner consistent with CLIA ?requirements. This test has not been cleared or approved by ?the U.S. Food and Drug Administration. ?Test Performed by: ?[facility] ?[address] [place] [address] ?Alum Plant Operator: Abby Rubi Ph.D.; CLIA# [id number] Swab ORAL / Unknown 01/12/2024 19 :44 EDT 01/12/2024 22:24 EDT Renee Garcia MD CHEMISTRY & BLOOD GA S ORDERABLES Performing Organization Address [facility] Co de Phone Number [facility] [address] [place] [address] * [place] ABDOM PARACENTESIS DX/THER W/O IMAGING GUIDANCE, HC - ABDOM PARACENTESIS DX/THER W/O IMAGING GUIDANCE (01/12/2024 13:39 EDT) Narrative [facility] POINT OF CARE - 01/12/2024 13:39 EDT Jackie uJan MD ? 01/12/2024 14:40 Paracentesis Bedside Date/Time: [...] to verify the correct patient, procedure, equipment, ground crewman aircraft support and site/side marked as required. Initial or [...] PROCEDURE/MINOR AJ GICAL ORDERABLES Performing Organization Address [facility] Co de Phone Number [facility] POINT OF CARE * (ABNORMAL) GLUCOSE 6-PHOSPHATE DEHYDROGENASE ENZYME ACTIVITY,BLD (01/12/2024 12:45 EDT) G6PD ENZYME ACTIVITY, B 17.9(H) 8.0 - 11.9 U/g Hb 01/16/2024 12:57 EDT [facility] Comment: The G6PD activity level [...] developed and its performance characteristics determined by [facility] in a manner consistent with CLIA requirements. This test has not been cleared or approved by the U.S. Food and Drug Administration. Test Performed by: [address] [address] Alum Plant Operator: Abby Rubi Ph.D.; CLIA# [id number] Blood VENOUS BLOOD / Unknown Venipuncture / Unknown 01/12/2024 12:45 EDT 01/12/2024 12:55 EDT Jackie Juan MD CHEMISTRY & BLOOD G ORDERABLES [facility] [address] [place] [address] * CALCIUM, IONIZED (01/12/2024 5:33 EDT) Calcium, Ionized 1.20 1.14 - 1.35 mmol/L 01/12/2024 5:[address] [facility] Blood VENOUS BLOOD / Unknown Venipuncture / Unknown 01/12/2024 5:33 EDT 01/12/2024 5:40 EDT Kaylah Vieira MD CHEMISTRY & BLOOD G ORDERABLES [facility] [address] [place] [address] * ADULT BRONCHOSCOPY PROCEDURE (01/11/2024 16:53 EDT) Narrative [facility] - 01/11/2024 16:53 EDT Procedure [...] Chelsea Logan Chelsea Logan MD PFT ORDERABLES [facility] * (ABNORMAL) PNEUMOCYSTIS JIROVECI, MOLECULAR DETECTION, PCR (01/11/2024 16:50 EDT) Specimen Source BAL 11:05 EDT [facility] Result Positive(A A) Not Applicable 01/15/2024 11:05 EDT [facility] Comment: Critical Result. ADDITIONAL INFORMATION This test was developed and its performance characteristics determined by [facility] in a manner consistent with CLIA requirements. This test has not been cleared or approved by the U.S. Food and Drug Administration. Test Performed by: [address] [address] [employer] Operator: Abby Rubi Ph.D.; CLIA# [id number] Special Information Not Reported 01/15/2024 11:05 EDT [facility] Report Status Not Reported 01/15/2024 11:05 EDT [facility] BAL STRUCTURE OF UPPER LOBE OF LEFT LUNG / Unknown 01/11/2024 16:50 EDT 01/12/2024 7:41 EDT Chelsea Logan MD MICROBIOLOGY - GENE RAL ORDERABLES Performing Organization Address City/[facility]/ZIP Co de Phone Number [address] [address] * NOCARDIA CULTURE AND SMEAR (01/11/2024 16:50 EDT) Organism ID No aerobic actinomycetes isolated 01/27/2024 10:[address] [facility] Fungal Smear No Modified acid fast bacilli seen 01/27/2024 10:[address] [facility] BAL STRUCTURE OF UPPER LOBE OF LEFT LUNG / Unknown 01/11/2024 16:50 EDT 01/12/2024 7:40 EDT Chelsea Logan MD MICROBIOLOGY - GENE RAL ORDERABLES Performing Organization Address [facility] de Phone Number [facility] [address] [place] [address] * AFB CULTURE/SMEAR, OTHER (01/11/2024 16:50 EDT) Organism ID No acid-fast bacilli isolated VITEK SUSCEPTIBILITY 03/08/2024 7:[address] [facility] AFB Smear No Acid Fast Bacilli Seen 03/08/2024 7:[address] [facility] BAL STRUCTURE OF UPPER LOBE OF LEFT LUNG / Unknown 01/11/2024 16:50 EDT 01/12/2024 7:40 EDT Chelsea Logan MD MICROBIOLOGY - GENE RAL ORDERABLES Performing Organization Address [facility] de Phone Number [facility] [address] [place] [address] * DIFFERENTIAL, LAVAGE FLUID (01/11/2024 16:50 EDT) Neutrophils Fluid Relative 14 % 01/12/2024 9:[address] [facility] Lymphocytes Fluid Relative 19 % 01/12/2024 9:[address] [facility] [place]arrow/Macrophage 66 % 9:[address] [facility] Eosinophils Fluid Relative 1 % 01/12/2024 9:[address] [facility] Path Review Fluid, other 01/12/2024 9:[address] [facility] BAL STRUCTURE OF UPPER LOBE OF LEFT LUNG / Unknown 01/11/2024 16:50 EDT 01/12/2024 7:40 EDT Chelsea Logan MD GEN LAB UNIT COLLEC T ORDERABLES [facility] [address] [place] [address] * BACTERIAL CULTURE/SMEAR, RESPIRATORY (01/11/2024 16:50 EDT) Organism ID Less than 10,000 CFU/ml usual danny-pharyngeal antonia. No Staphylococcus aureus or Pseudomonas species isolated. 02/07/2024 13:[address] [facility] Smear Neutrophils Present 02/07/2024 13:[address] [facility] Smear No bacteria seen 02/07/20 13:[address] [facility] BAL STRUCTURE OF UPPER LOBE OF LEFT LUNG / Unknown 01/11/2024 16:50 EDT 01/12/2024 7:40 EDT Chelsea Logan MD MICROBIOLOGY - GENE RAL ORDERABLES Performing Organization Address [facility]/ZIP Co de Phone Number [facility] [address], [place] [address] * FUNGUS CULTURE/SMEAR (01/11/2024 16:50 EDT) Organism ID Yeast Not Cryptococcus or Dimorphic Fungi 02/09/2024 11:[address] [facility] Fungal Smear No Fungi Seen 11:[address] [facility] BAL STRUCTURE OF UPPER LOBE OF LEFT LUNG / Unknown 01/11/2024 16:50 EDT 01/12/2024 7:40 EDT Chelsea Logan MD MICROBIOLOGY - GENE RAL ORDERABLES Performing Organization Address City/[facility]/ZIP Co de Phone Number [facility] [address], [place] [phone] * FOLATE (01/11/2024 8:00 EDT) Folate >24.0 See Note ng/mL 01/11/2024 20:[address] [facility] Comment: Reference Ranges for Folate: Deficient: ?< 3.4 ng/mL Indeterminate: ??3.4 - 5.4 ng/mL Normal: ? > 5.4 ng/mL The results of this assay can be falsely elevated due to the consumption of Biotin. Blood BLOOD SAMPLE TAKEN FROM CENTRAL LINE / Unknown 01/11/2024 8:00 EDT 01/11/2024 8:[address] [facility] - 01/11/2024 20:13 EDT Slight hemolysis present Hemolysis may elevate Folate result Kaylah Vieira MD CHEMISTRY & BLOOD G ORDERABLES Performing Organization Address [facility] de Phone Number [facility] [address] [place] [address] * (ABNORMAL) VITAMIN B12 (01/11/2024 8:00 EDT) Vitamin B12 1,574(H) 211 - 911 pg/mL 01/11/2024 20:[address] [facility] Blood BLOOD SAMPLE TAKEN FROM CENTRAL LINE / Unknown 01/11/2024 8:00 EDT 01/11/2024 8:08 EDT Kaylah Vieira MD CHEMISTRY & BLOOD G ORDERABLES Performing Organization Address [facility] de Phone Number [facility] [address] [place] [address] * (ABNORMAL) HEPATIC FUNCTION PANEL (ALB,ALK PHOS,ALT,AST,DBIL,TOT WILY,TOT PROT) (01/11/2024 8:00 EDT) Total Protein 5.3(L) 6.3 - 8.2 g/dL 01/11/2024 15:[address] [facility] Comment:Slight hemolysis gonzalez ntified, interpret with caution as results may be affected due to hemolysis. Albumin 2.5(L) 3.4 - 4.9 g/dL 01/11/2024 15:[address] [facility] Comment:Slight hemolysis gonzalez ntified, interpret with caution as results may be affected due to hemolysis. Bilirubin, Total 1.2 <1.4 mg/dL 01/11/20 24 15:09 [facility] Conjugated Bilirubin 0.0 <=0.3 mg/dL 01/11/2024 15:09 [facility] Unconjugated Bilirubin 0.6 <=1.1 mg/dL 01/11/2024 15:09 [facility] Alkaline Phosphatase 312(H) 38 - 126 U/L 01/11/2024 15:09 [facility] Comment:Slight hemolysis gonzalez ntified, hemolysis will decrease ALKP result. Interpret with caution as results may be affected due to hemolysis. ALT 50(H) <35 U/L 01/11/2024 15:09 [facility] AST 69(H) 15 - 46 U/L 01/11/2024 15:09 [facility] Comment:Slight hemolysis gonzalez ntified, interpret with caution as results may be affected due to hemolysis. Calculated Total Bilirubin 0.6 <1.4 mg/dL 01/11/2024 15:09 [facility] Blood BLOOD SAMPLE TAKEN FROM CENTRAL LINE / Unknown 01/11/2024 8:00 EDT 01/11/2024 8:08 EDT Kaylah Vieira MD CHEMISTRY & BLOOD G ORDERABLES [facility] [address] [place] [address] * (ABNORMAL) TRANSFERRIN SATURATION (01/10/2024 8:44 EDT) Iron 27(L) 37 - 170 ??g/dL 01/10/2024 9:[address] [facility] Iron Binding Capacity 250 240 - 450 ??g/dL 01/10/2024 9:[address] [facility] Transferrin Saturation 11(L) 15 - 45 % 01/10/2024 9:[address] [facility] Blood BLOOD SAMPLE TAKEN FROM CENTRAL LINE / Unknown 01/10/2024 8:44 EDT 01/10/2024 9:05 EDT Kaylah Vieira MD CHEMISTRY & BLOOD G ORDERABLES Performing Organization Address City/[facility]/ZIP Co de Phone Number [facility] [address], [place] [phone] * FERRITIN (01/10/2024 8:44 EDT) Ferritin 46 10 - 291 ng/mL 01/10/2024 10:[address] [facility] Blood BLOOD SAMPLE TAKEN FROM CENTRAL LINE / Unknown 01/10/2024 8:44 EDT 01/10/2024 9:05 EDT Kaylah Vieira MD CHEMISTRY & BLOOD G ORDERABLES Performing Organization Address City/[facility] Co de Phone Number [facility] [address], [place] [phone] * (ABNORMAL) FUNGITELL, SERUM (01/10/2024 6:41 EDT) Fungitell Quantitative Value >500(A) <60 pg/mL pg/mL 01/12/2024 12:07 EDT [facility] Fungitell Qualitative Result Positive (A) Negative 01/12/2024 12:07 EDT [facility] Comment: (1, 3) Nnky-B-Zphblu detected. A single positive result should be [...] produce very low levels of (1, 3) Dfjp-X-Zhtbvr (BDG) and the Mucorales (e.g., Lichthemia, Mucor and Rhizopus), which are not known to produce BDG. Additionally, the yeast phase of Blastomyces dermatitidis produces little BDG and may not be detected by this assay. Hemolyzed ADDITIONAL INFORMATION This assay was performed using the FDA-cleared Fungitell Assay ([facility], [place], [place], [place]), a kinetic MANDEEP based on modification of the Limulus Amebocyte Lysate pathway. Test Performed by: [address] [address] Alum Plant Operator: Abby Rubi Ph.D.; CLIA# [id number] Blood BLOOD SAMPLE TAKEN FROM CENTRAL LINE / Unknown Port / Unknown 01/10/2024 6:41 EDT 01/10/2024 7:06 EDT Stepan Emery DO IMMUNOLOGY AND SEROL OGY ORDERABLES Performing Organization Address City/[facility]/ZIP Co de Phone Number [address] [address] * CRYPTOCOCCAL ANTIGEN, SERUM (01/10/2024 6:41 EDT) [facility] Cryptococcal Ag Serum Negative Negative 01/10/2024 15:[address] [facility] Blood BLOOD SAMPLE TAKEN FROM CENTRAL LINE / Unknown Port / Unknown 01/10/2024 6:41 EDT 01/10/2024 7:21 EDT Stepan Emery DO MICROBIOLOGY - GENER AL ORDERABLES Performing Organization Address City/[facility]/ZIP Co de Phone Number [facility] [address], [place] [phone] * TRANSTHORACIC ECHO (TTE) COMPLETE W/DOPPLER W/CF NO CONTRAST (01/09/2024 16:18 EDT) [facility] LV Diastolic Volume 83 mL [facility] POINT [...] color Doppler.The study was interpreted by [facility]. Pertinent images and digital [...] EDT) 01/09/2024 13:0 6 EDT Scan 2 Fabric Designer PROCEDURE/MINOR AJ GICAL ORDERABLES * IR PARACENTESIS-RADIOLOGY (01/09/2024 9:59 EDT) Anatomical Region Laterality Modality N/A X-Ray Angiograph y 01/10/2024 10:1 2 EDT Impressions 01/10/2024 10:12 EDT 1. Successful ultrasound guided paracentesis. [id number] Narrative 01/10/2024 10:12 EDT ULTRASOUND-GUIDED PARACENTESIS History: [...] current guidelines was used. Resulting Agency Comment [id number] Procedure Note Scriver, David Rowley MD - [...] used. IMPRESSION 1. Successful ultrasound guided paracentesis. [id number] Hugo Vergara MD PhD IMG IR ORDERABL ES * STREPTOCOCCUS PNEUMONIAE ANTIGEN, URINE (01/09/2024 6:20 EDT) Strep Pneumo Ag Detection, Urine Negative Negative 01/09/2024 9:[address] [facility] Urine URINE / Unknown Urine Collect / Unknown 01/09/2024 6:20 EDT 01/09/2024 7:23 EDT Kerry Jimenez MD MICROBIOLOGY - GENER AL ORDERABLES Performing Organization Address [facility] Co de Phone Number [facility] [address] [place] [address] * LEGIONELLA ANTIGEN DETECTION, URINE (01/09/2024 6:20 EDT) Pathologist [facility] Legionella Antigen Detection Negative Negative 01/09/2024 9:[address] [facility] Urine URINE / Unknown Urine Collect / Unknown 01/09/2024 6:20 EDT 01/09/2024 7:23 EDT Kerry Jimenez MD MICROBIOLOGY - GENER AL ORDERABLES Performing Organization Address [facility] de Phone Number [facility] [address] [place] [address] * HN LAB CBC SMEAR REVIEW (01/09/2024 6:08 EDT) Pathologist [facility] Differential Comment Slide was examined by a technologist to verify the WBC and/or platelet count. 01/09/2024 7:[address] [facility] Blood VENOUS BLOOD / Unknown Venipuncture / Unknown 01/09/2024 6:08 EDT 01/09/2024 6:34 EDT Kerry Jimenez MD HEMATOLOGY & PF4 ORD ERABLES Performing Organization Address [facility] Co de Phone Number [facility] [address] [place] [address] * EXPANDED RESPIRATORY VIRAL PANEL, PCR (DOES NOT INCLUDE INFLUENZA OR RSV) (01/08/2024 17:10 EDT) Pathologist [facility] Paraflu Type 1 Rslt (PF1RES) Negative Negative 01/08/2024 23:[address] [facility] Paraflu Type 2 Rslt (PF2RES) Negative Negative 01/08/2024 23:[address] [facility] Paraflu Type 3 Rslt (PF3RES) Negative Negative 01/08/2024 23:[address] [facility] Paraflu Type 4 Rslt Negative Negative 01/07 23:[address] [facility] Rhinovirus RNA Rslt (RVRES) Negative Negative 01/08/2024 23:[address] [facility] Metapneumovirus RNA Rslt (HMVRES) Negative Negative 01/08/2024 23:[address] [facility] Adenovirus DNA Rslt (ADVRES) Negative Negative 01/08/2024 23:[address] [facility] Swab NASOPHARYNGEAL STRUCTURE / Unknown Swab / Unknown 01/08/2024 17:10 EDT 01/08/2024 17:12 EDT Bambi Porter MD MICROBIOLOGY - GENER AL ORDERABLES Performing Organization Address City/State/[facility] Co de Phone Number [facility] [address] [place], [place] [phone] * (ABNORMAL) COMPREHENSIVE METABOLIC PANEL (CMP) (01/08/2024 17:10 EDT) Sodium 128(L) 136 - 145 mmol/L 01/08/2024 17:28 [facility] Potassium 4.3 3.5 - 5.0 mmol/L 01/08/2024 17:28 [facility] Chloride 102 96 - 110 mmol/L 01/08/2024 17:28 [facility] CO2 Total 23 22 - 32 mmol/L 01/08/2024 17:28 [facility] Glucose 145(H) 70 - 99 mg/dl 01/08/2024 17:28 [facility] BUN 19 10 - 26 mg/dL 01/08/2024 17:28 [facility] Creatinine 0.68 0.52 - 1.04 mg/dL 01/08/2024 17:28 [facility] eGFR 98 >60 mL/min/1.7 3m2 01/08/2024 17:28 [facility] Total Protein 4.9(L) 6.3 - 8.2 g/dL 01/08/2024 17:28 [facility] Albumin 2.4(L) 3.4 - 4.9 g/dL 01/08/2024 17:28 [facility] Alkaline Phosphatase 368(H) 38 - 126 U/L 01/08/2024 17:28 [facility] AST 41 15 - 46 U/L 01/08/2024 17:28 [facility] ALT 39(H) <35 U/L 01/08/2024 17:28 [facility] Bilirubin, Total 1.3 <1.4 mg/dL 01/08/20 17:28 [facility] Calcium 7.9(L) 8.5 - 10.5 mg/dL 01/08/2024 17:28 [facility] Albumin/Globulin Ratio 1.0 1.0 - 2.5 01/08/2024 17:28 [facility] Anion Gap 3(L) 5 - 14 mmol/L 01/08/2024 17:28 [facility] Blood VENOUS BLOOD / Unknown Venipuncture / Unknown 01/08/2024 17:10 EDT 01/08/2024 17:12 EDT Trinh Alcocer PA-C CHEMISTRY & BLOOD GA S ORDERABLES Performing Organization Address City/State/[facility] Co de Phone Number [facility] [address] [place] [address] * XR CHEST PORTABLE 1 VIEW (01/08/2024 16:57 EDT) Anatomical Region Laterality Modality Computed Radiogr aphy 01/08/2024 17:0 5 EDT Impressions 01/08/2024 17:05 EDT Interposed areas of atelectasis and airspace disease similar as on the comparison CT 3 days prior concerning for bilateral pneumonia. Differential consideration would include drug reaction. [id number] Narrative 01/08/2024 17:05 EDT XR CHEST PORTABLE [...] No concerning bone lesions. Resulting Agency Comment [id number] Procedure Note Sonny Georges MD - 01/08/2024 [...] bilateral pneumonia.Differential consideration would include drug reaction. [id number] Trinh Alcocer PA-C IMG DIAGNOSTIC IMAGI NG ORDERABLES * EKG 12-LEAD (01/08/2024 16:54 EDT) 01/08/2024 16:[address] [facility] EKG - 01/09/2024 12:51 EDT ?[facility] ? Test Date: ?2024-01-08 Pat Name: ? SUNSHINE ARTEAGAONNJERSEYWEST ? Department: ?? ED ? Room: ? Gender: ? Female ? Studio Operations Manager: ?? : ?1960 ? Requested By: CASA Bueno Order Number: [id number] ? Reading MD: ?? EFRAIN HILL ? Measurements Intervals ?[place] ? Rate: ? 108 ?P: ?17 [place]: ? 140 ?QRS: ?2 QRSD: ? 110 [...] Note Efrain Hill MD - 01/09/2024 [facility] Test Date: 2024-01-08 Pat Name: SUNSHINE SUBRAMANIAN Department: ED Room: Gender: Female Studio Operations Manager: : 1960 Requested By: CASA Bueno Order Number: [id number] Reading MD: EFRAIN HILL Measurements Intervals [place] Rate: 108 P: 17 [place]: 140 QRS: 2 QRSD: 110 T: 20 QT: 326 QTc: 439 Interpretive Statements SINUS TACHYCARDIA NONSPECIFIC ST ELEVATION ABNORMAL RHYTHM ECG Automated Interpretation. Provider Interpretation to follow. No previous ECG available for comparison I reviewed the tracing and have either agreed or edited the findings inthis report. Electronically Signed On 01-09-2024 12:51:39 EDT by EFRAIN HILL. Micky Mcallister MD CARDIAC ECG ORDERAB LES [facility] EKG * CT CHEST W CONTRAST [...] spleen with a large amount of ascites. [id number] Narrative 01/05/2024 15:[address] CHEST W CONTRAST ??01/05/2024 1:56 PM Clinical History/Comments: Respiratory illness, nondiagnostic xray; desaturation/ SOB;C50.919:Primary malignant neoplasm of breast with metastasis (HCC-CMS) TECHNIQUE: The exam is performed with intravenous contrast. In addition to geological scout imaging, axial, sagittal and coronal reconstruction imaging [...] Hardware within the lumbar spine on the geological scout image. ?Surrounding soft tissues: Bilateral breast prostheses [...] exam otherwise appears unremarkable. Resulting Agency Comment [id number] Procedure Note Yuval Kapadia MD - 01/05/2024 [...] roundedlow- attenuation foci consistent with metastatic disease. Qee-ufxbwfrded-impusniseod within the spleen is, in places, better [...] and spleen with a large amount ofascites. [id number] Alisson Carreon MD IM CT ORDERABLES * IR PARACENTESIS-RADIOLOGY (01/03/2024 9:15 EDT) Anatomical Region Laterality Modality N/A X-Ray Angiograph y 01/03/2024 15:3 8 EDT Impressions 01/03/2024 15:38 EDT Successful, uncomplicated paracentesis using sonographic guidance yielding ??3 L of fluid. ?? LUNA Arguelles, PA-C Interventional Radiology I have personally reviewed the images and the above interpretation and agree with the findings. [id number] Narrative 01/03/2024 15:38 EDT IR PARACENTESIS-RADIOLOGY ??01/03/2024 [...] procedure well without complication. Resulting Agency Comment [id number] Procedure Note Lea Price MD - 01/03/2024 [...] sonographic guidance yielding3 L of fluid. LUNA Arguelles PA-C Interventional Radiology I have personally reviewed the images and the above interpretation andagree with the findings. [id number] Hugo Vergara MD PhD IMG IR ORDERABL ES * ECG REPORT - SCANNED (12/21/2023 11:19 EDT) 12/21/2023 11:1 9 EDT Scan 2 Fabric Designer PROCEDURE/MINOR AJ GICAL ORDERABLES * VITAMIN D (25,OH) (12/20/2023 11:51 EDT) 25OH Vitamin D Tot 97 30 - 100 ng/mL 12/21/2023 12:[address] [facility] Comment: Vitamin D 25,OH Interpretive Ranges: Deficiency: ??<10.0 ng/mL Insufficiency: ??10.0 - 30.0 ng/mL Sufficiency: ??30.0 - 100.0 ng/mL Toxicity: ??>100.0 ng/mL Blood VENOUS BLOOD / Unknown Venipuncture / Unknown 12/20/2023 11:51 EDT 12/20/2023 12:09 EDT Alisson Carreon MD CHEMISTRY & BLOOD G ORDERABLES [facility] [address] [place] [address] * IR PARACENTESIS-RADIOLOGY (12/20/2023 9:20 EDT) Anatomical Region Laterality Modality N/A X-Ray Angiograph y 12/20/2023 10:3 3 EDT Impressions 12/20/2023 10:33 EDT Successful, uncomplicated paracentesis using sonographic guidance yielding 1.8 L ??fluid. ?? LUNA Arguelles, PANitaC Interventional Radiology I have personally reviewed the images and the above interpretation and agree with the findings. [id number] Narrative 12/20/2023 10:33 EDT IR PARACENTESIS-RADIOLOGY ??12/20/2023 [...] procedure well without complication. Resulting Agency Comment [id number] Procedure Note Johnson Kwon MD - 12/20/2023 [...] using sonographic guidance yielding1.8 L fluid. LUNA Arguelles PA-C Interventional Radiology I have personally reviewed the images and the above interpretation andagree with the findings. [id number] Jackie Juan MD IM IR ORDERABLES * ANAEROBE CULTURE/SMEAR(INC. AEROBES), OTHER (12/20/2023 8:56 EDT) Organism ID No Growth 12/25/2023 11:[address] [facility] Smear No Neutrophils Seen 12/25/2023 11:[address] [facility] Smear No bacteria seen 12/25/2023 11:[address] [facility] Fluid ASCITIC FLUID / Unknown 12/20/2023 8:56 EDT 12/20/2023 9:40 EDT Halle Benito PA-C MICROBIOLOGY - GENER AL ORDERABLES [facility] [address] [place] [address] * HEPATITIS C ANTIBODY (09/12/2009 14:45 EDT) Hepatitis C Ab Negative Reference Range: ??Negative [facility] Blood specimen (specimen) 09/12/2009 14:45 EDT 09/12/2009 14:48 EDT Quita Babb PA-C CHEMISTRY & BL OOD GAS ORDERABLES [facility] [address] [place] [address] from Last 3 Months or Most Recently Relevant to Health Maintenance Advance Directives For more information, please contact: [phone] * Full Code (Latest Code Status on [...] Comments 12/13/2011 17:52 12/17/2011 15:28 Care Teams Copy Clerk Relationship Specialty Start Date End Date Linda Blancas MD [facility] [address] [place] [address] PCP - General 01/06/11 Adolfo Carreno MD [address] [place] [address] [address] [place] [address] General Surgery 04/26/19
--- OUTSIDE RECORDS SUMMARY | 2024-03-20 14:31 | XMS_ITS ---
Author Organization [facility] Address [address] [place] [address] Care Team Providers Care Tiler Name Role Phone Linda Blancas MD Primary Care Provider [phone] Adolfo Carreno MD Unavailable [phone] Active Problems Patient Care Coordination No te Formatting of this note migh t be different from the original. 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) 12/12/19 24 Other ascites 12/12/2023 Acute pulmonary embolism wit hout acute cor pulmonale (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, right 06/19/2019 Overview: Added automatically from request for surgery [id number] Lipoma of back 06/19/2019 Overview: Added automatically from request for surgery [id number] Osteopenia 05/23/2019 Palliative care by specialist 10/03/2017 Malignant neoplasm of female breast ([facility]) Primary malignant neoplasm o f breast with metastasis ([facility]) 11/18/2016 Overview: IMO 09/11 Regulatory Update [...] low grade squamous intraepithelial lesion (LGSIL) 03/11/2009 Current Oncology Plans DENOSUMAB* Plan Start Date:12/20/2023 Plan Provider:Alisson Carreon MD Linked Problems Osteopenia of necks of both femursPrimary malignant neoplasm of breast with metastasis (HCC-CMS) Treatment Medications Current Day (Day 1 , Cycle 4 - Planned for 04/27/2024) Next Day (Day 1, Cycle 5 - Planned for 06/08/2024) denosumab (XGEVA) denosumab (XGEVA) in jection 120 mg denosumab (XGEVA) injection 120 mg FAM-TRASTUZUMAB DERUXTECAN (BREAST, LUNG)* Plan Start Date:10/16/2023 Plan Provider:Augustina Colin MD PhD Linked Problems Malignant neoplasm of right female breast, unspecified estrogen receptor status, unspecified site of breast (HCC-CMS) Treatment Medications Current Day (Day 1 , Cycle 6 - Planned for 04/13/2024) Next Day (Day 1, Cycle 7 - Planned for 05/04/2024) diphenhydrAMINE (BENADRYL) IVPBfam-trastuzumab deruxtecan-nxki IVPBfosaprepitant (EMEND) IVPB 150 mg diphenhydrAMINE (BENADRYL) 25 mg in sodium chloride (NS) 0.9 % 50 mL IVPBfam-trastuzumab deruxtecan-nxki (Enhertu) 247.8 mg in dextrose 5% (D5W) 100 mL IVPBfosaprepitant (EMEND) 150 mg in sodium chloride (NS) 0.9 % 150 mL infusion diphenhydrAMINE (BENADRYL) 25 mg in sodium chloride (NS) 0.9 % 50 mL IVPBfam-trastuzumab deruxtecan-nxki (Enhertu) 247.8 mg in dextrose 5% (D5W) 100 mL IVPBfosaprepitant (EMEND) 150 mg in sodium chloride (NS) 0.9 % 150 mL infusion HYDRATION THERAPY PLAN* Plan Start Date:12/26/2023 Plan Provider:Alisson Carreon MD Linked Problems Malignant neoplasm of right female breast, unspecified estrogen receptor status, unspecified site of breast (HCC-CMS)Metastatic malignant neoplasm (HCC-CMS) Treatment Medications No medications scheduled. Past Plans ONCOLOGY TREATMENT Plan Name Start Date Discontinue Date Treatment Medications Discontinue Reason Plan Provider Cycles FULVESTRANT (500 mg) 0 11/27/2021 fulvestrant (FASLODEX) Progression Augustina Colin MD PhD 22 of 25 cycles started Radiation Treatments * No radiation treatments are documented for this patient in [facility]. Treatments may have been administered in another system. Lifetime Dose Tracking * Chemical Lifetime Dose Automatic Entry Manual Entr y Dose Area Product 257,983.6 mGy-cm2 257,983.6 mGy-cm2 0 mGy-cm2
--- OUTSIDE RECORDS SUMMARY | 2024-03-20 14:31 | XMS_ITS | Encounter Summary ---
Author Organization [facility] Address [address] [place] [address] Care Team Providers Care Collection Team Lead Name Role Phone Linda Blancas MD Primary Care Provider [phone] Adolfo Carreno MD Unavailable [phone] Reason for Visit * Reason Onset Date Comments Follow-up 03/15/2024 Encounter Details Date Type Department Care Team (Late st Contact Info) Description 03/15/2024 Telephone [facility] Pulmonology & Critical Care - [facility] [address], [place] [id number] Julia Salazar, RN Follow-up Social History Tobacco Use Types Packs/Day Years Used Date Smoking Tobacco: Never Passive Smoke Exposure: Never Smokeless Tobacco: Never Alcohol Use Standard Drinks/Week Comments Not Currently 1 (1 standard drink = 0.6 oz pur e alcohol) [facility] Utilities Answer Date Recorded In the past 12 months has [employer], gas, oil, or water [employer] threatened to shut off services in your [...] any time in the past 12 m [facility], were you homeless or living in a mcc (including now)? No 01/10/2024 Interpersonal Safety Answer Date Record ed How often does anyone, manuela yung family, hit, punch or physically hurt you? 01/08/2024 How often does anyone, manueal yung family, insult, scream, curse or threaten [...] encounter Miscellaneous Notes * Telephone Encounter - Julia Salazar RN - 03/15/2024 1255 EDT MCM to pt with results of 6MWT and no longer requiring supplemental O2. documented in this encounter Plan of Treatment Upcoming Encounters Date Type Department Care Team (Late st Contact Info) Description 04/02/2024 10:30 EDT Appointment [facility] Interventional Radiology Unit [address] [place] [address] [phone] 04/02/2024 15:15 EDT Office Visit [facility] Surgical Oncology - [address] [phone] Adolfo Carreno MD [address] [place] [phone] 04/05/2024 9:[address] [facility] [address] [place] [address] [phone] Chichi Woods MD [address] [place] [address] [phone] 04/11/2024 15:00 EDT Telemedicine [facility] Hematology & Oncology [address] [phone] Alisson Carreon MD [address] [place] [address] [phone] 04/13/2024 13:30 EDT Appointment [facility] Hematology & Oncology [address] [phone] 04/13/2024 14:00 EDT Appointment [facility] Hematology & Oncology [address] [phone] 04/16/2024 10:[address] [facility] [address] [place] [address] [phone] Chichi Woods MD [address] [place] [address], [place] [address] [place] [phone] 04/24/2024 9:00 EST Appointment [facility] Radiology CT Outpatient - [address] [phone] 04/24/2024 11:00 EST Appointment [facility] Breast Imaging - [address] [phone] 04/27/2024 12:00 EST Appointment [facility] Hematology & Oncology [address] [phone] 05/02/2024 15:00 EST Telemedicine [facility] Hematology & Oncology [address] [phone] Alisson Carreon MD [address] [place] [address], [address] [place] [phone] 05/04/2024 10:15 EST Ancillary Procedure [facility] Cardiology - [address] [place], [place] [phone] 05/04/2024 11:30 EST Appointment [facility] Hematology & Oncology [address] [phone] 05/04/2024 12:00 EST Appointment [facility] Hematology & Oncology [address] [phone] 06/12/2024 13:00 EST Appointment [facility] Radiology CT - [address] [phone] documented as of this encounter Visit Diagnoses Not on filedocumented in this encounter Care Teams Collection Team Lead Relationship Specialty Start Date End Date Linda Blancas MD [facility] [address] [place] [address] PCP - General 01/06/11 Adolfo Carreno MD [address] [place] [address] [address] [place] [phone] General Surgery 04/26/19 documented as of this encounter
--- OUTSIDE RECORDS SUMMARY | 2024-03-20 14:31 | XMS_ITS | Encounter Summary ---
Author Organization [facility] Address [address] [place] [address] Care Team Providers Care Tunnel Elastic Operator Chainstitch Name Role Phone Linda Blancas MD Primary Care Provider [phone] Adolfo Carreno MD Unavailable [phone] Reason for Referral * Test (Routine/Next Available) - Authorization Not Required Specialty Diagnoses / Procedures Referred By Contac t Referred To Contact Diagnoses Acute hypoxic respiratory failure ([facility]) Procedures PULMONARY FUNCTION TESTING Pavan Bianchi MD [address] [place] [phone] Referral ID Status Reason Start Date Expiration Date Visits Requested Visits Authorized [id number] Authorization Not Required 03/13/2024 1 1 Reason for Visit * Test (Routine/Next Available) - Authorization Not Required Specialty Diagnoses / Procedures Referred By Contac t Referred To Contact Diagnoses Acute hypoxic respiratory failure ([facility]) Procedures PULMONARY FUNCTION TESTING Pavan Bianchi MD [address] [place] [phone] Referral ID Status Reason Start Date Expiration Date Visits Requested Visits Authorized [id number] Authorization Not Required 03/13/2024 1 1 Encounter Details Date Type Department Care Team (Latest Contact Info) Description 03/13/2024 14:53 EDT - 03/13/2024 23:59 EDT Hospital Encounter [facility] Pulmonary Function Lab - [address] [address] P[facility] Pedi, [facility] Pft Lab Acute hypoxic respiratory failure (HCC-CMS) Discharge Disposition: Home or Self Care Social History Tobacco Use Types Packs/Day Years Used Date Smoking Tobacco: Never Passive Smoke Exposure: Never Smokeless Tobacco: Never Alcohol Use Standard Drinks/Week Comments Not Currently 1 (1 standard drink = 0.6 oz pur e alcohol) [facility] Utilities Answer Date Recorded In [...] were you homeless or living in a usp (including now)? No 01/10/2024 Interpersonal Safety Answer [...] onset 12/12/2023 documented as of this encounter Medications at Time of Discharge Medication Sig Dispensed Refills Start Date End Date apixaban (ELIQUIS) 2.5 mg tabletIndications:Brianjeannette zinadhiraj neoplasm of right female breast, unspecified estrogen receptor status, unspecified site of breast (HCC-CMS),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, unspecified laterality, 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HCC-CMS),Primary malignant neoplasm of breast with metastasis (HCC-CMS),Acute hypoxic respiratory failure (HCC-CMS) Take 1 Tablet by mouth 2 times daily. 60 Tablet 11 03/13/2024 atovaquone (MEPRON) 750 mg/5 mL suspension Take 10 mL by mouth every 24 hours. 840 mL 3 02/16/2024 calcium-vitamin D (OS-CHAR D) 500 mg(1,250mg) -200 unit per tablet Take 1 Tablet by mouth 2 times daily with breakfast and dinner. cholecalciferol, Vitamin D3, 25 mcg (1,000 unit) tablet Take 1 Tablet by mouth daily. cyclobenzaprine (FLEXERIL) 10 mg tabletIndications:Alejandro piedad neoplasm of right female breast, unspecified estrogen receptor status, unspecified site of breast (HCC-CMS) Take 1 Tablet by mouth 2 times daily as needed for Muscle Spasms. 60 Tablet 1 01/19/2024 furosemide (LASIX) 20 mg tablet Take 2 Tablets by mouth daily. 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 30 Tablet 11 03/13/2024 MULTIVITS W-CA,FE,OTHER MIN (WOMEN'S DAILY FORMULA ORAL) Take by mouth daily. naloxone (NARCAN) 4 mg/actuation nasal spray 0.1 mL by nasal route as needed for up to 2 doses for Opioid Reversal. 2 Each 01/19/2024 omeprazole (PRILOSEC) 40 mg capsuleIndications:Justin roesophageal reflux disease, unspecified whether esophagitis present Take 1 Capsule by mouth 2 times daily. 60 Capsule 11 11/23/2023 RED YEAST RICE EXTRACT ORAL Take 1,200 mg by mouth daily. 600mg 2x a day spironolactone (ALDACTONE) 100 mg tablet Take 2 Tablets by mouth daily. 60 Tablet 2 02/21/2024 valACYclovir (VALTREX) 500 mg tablet Take 1 Tab by mouth daily. 90 Tab 3 08/16/2012 venlafaxine (EFFEXOR-XR) 75 mg XR capsuleIndications:Prim hugo malignant neoplasm of breast with metastasis (HCC-CMS) Take 1 Capsule by mouth daily for 360 days. 30 Capsule 11 01/06/2024 12/31/2024 documented as of this encounter Discharge Disposition Disposition Code Departure Means Destination Home or Self Care documented in this encounter Progress Notes * Dionicio Fitzgerald MD - 03/13/2024 8514 EDT Name: Sunshine Pleitez Date of : 1960 Date: 03/13/2024 Pulmonary Function Lab 6 MINUTE WALK TEST Indication/Diagnosis: acute hypoxic respiratory failure Pre/Resting B/P: 137/65 Pre/Resting HR: 94 Pre/Resting O2 Sat: 100 % Pre/Resting IVANA: 0 Oxygen Used?: No Oxygen liter/min: 0 Post/Recovery B/P: 132/58 Post/Recovery HR: 99 Post/Recovery O2 Sat: 99 % Post/Recovery: 0 Maximal IVANA: 2 Post Oxygen liter/min: 0 Walked without assistance. Reflectance probe w/headband used. TIME HR Sat 02 liter/min COMMENTS 30 sec 104 100 0 LPM 1 min 103 100 0LPM 1 min/30 sec 104 100 0LPM 2 min 105 100 0LPM 2 min/30 sec 106 100 0LPM 3 min 106 100 0LPM 3 min/30 sec 108 99 0LPM 4 min 108 100 0LPM 4 min/30 sec 105 99 0LPM 5 min 105 100 0LPM 5 min/30 sec 110 100 0LPM 6 min 105 100 0LPM Distance walked: 900 feet. Test performed by: RT KARY Date: 03/13/2024 Time: 15:56 Pager/Contact No.: [phone] Provider Interpretation: Normal oxygen saturation on room air at rest. No significant desaturation with exercise. Authenticating provider: Dionicio Fitzgerald MD Date: 03/13/2024 Time: 16:54 Pager: Phloronol Secure Chat documented in this encounter Plan of Treatment Upcoming Encounters Date Type Department Care Team (Late st Contact Info) Description 04/02/2024 10:30 EDT Appointment [facility] Interventional Radiology Unit [address] [place] [phone] 04/02/2024 15:15 EDT Office Visit [facility] Surgical Oncology - [facility] [address], [place] [phone] Adolfo Carreno MD 111 [facility], Level 2 [place] [phone] 04/05/2024 9:30 EDT Telemedicine [facility] - [facility] Palliative Care Services [address], [place] [phone] Chichi Woods MD [address] [place] [address] [address] [place] [phone] 04/11/2024 15:00 EDT Telemedicine [email or web address] Hematology & Oncology - [address] [phone] Alisson Carreon MD [address] [place] [address], Level 2 [place] [phone] 04/13/2024 13:30 EDT Appointment [email or web address]] Hematology & Oncology [address] [phone] 04/13/2024 14:00 EDT Appointment [email or web address]] Hematology & Oncology [address] [address] 04/16/2024 10:00 EST Telemedicine [facility] - [facility] Palliative Care Services [address] [place] [address] Chichi Woods MD [address] [place] [phone] 04/24/2024 9:00 EST Appointment [facility] Radiology CT Outpatient - [address] [id number] 04/24/2024 11:00 EST Appointment [facility] Breast Imaging - [address] [phone] 04/27/2024 12:00 EST Appointment [email or web address] Hematology & Oncology - [address] [phone] 05/02/2024 15:00 EST Telemedicine [facility] [[email or web address]] Hematology & Oncology - [address] [phone] Alisson Carreon MD [address] [place] [address], [facility] 2 [place] [phone] 05/04/2024 10:15 EST Ancillary Procedure [facility] Cardiology - [address] [place] [address] 05/04/2024 11:30 EST Appointment [email or web address] Hematology & Oncology - [address] [phone] 05/04/2024 12:00 EST Appointment [email or web address] Hematology & Oncology [address] [id number] 06/12/2024 13:00 EST Appointment [facility] Radiology CT - [address] 239461 Scheduled Orders Name Type Priority Associated Diagnoses Orde r Schedule PULMONARY FUNCTION TESTING PFT Routine Acute hypoxic respiratory failure (HCC-CMS) 1 Occurrences starting 03/13/2024 until 03/13/2024 documented as of this encounter Visit Diagnoses Diagnosis Acute hypoxic respiratory failure (HCC-CMS) documented in this encounter Care Teams Tunnel Elastic Operator Chainstitch Relationship Specialty Start Date End Date Linda Blancas MD [address] [place] [address] [address] [place] [address] PCP - General 01/06/11 Adolfo Carreno MD [address] [place] [address] 2 [place] [phone] General Surgery 04/26/19 documented as of this encounter
--- OUTSIDE RECORDS SUMMARY | 2024-03-20 14:31 | XMS_ITS | Encounter Summary ---
Author Organization [facility] Address [address] [place] [address] Care Team Providers Care Technical Adjuster Name Role Phone Linda Blancas MD Primary Care Provider [phone] Adolfo Carreno MD Unavailable [phone] Encounter Details Date Type Department Care Team (Late st Contact Info) Description 03/14/2024 Documentation Visit [facility] Gastroenterology - [facility] [address] [place], [place] 283[address] Hugo Vergara MD PhD 111 [facility], Level 5 [place] [address] Social History Tobacco Use Types Packs/Day Years Used Date Smoking Tobacco: Never Passive Smoke Exposure: Never Smokeless Tobacco: Never Alcohol Use Standard Drinks/Week Comments Not Currently 1 (1 standard drink = 0.6 oz pur e alcohol) [facility] Utilities Answer Date Recorded In the past 12 months has [employer] electric, gas, oil, or water [employer] threatened to shut off services in your [...] any time in the past [address] [facility], were you homeless or living in a [facility] (including now)? No 01/10/2024 Interpersonal Safety Answer Date Record ed How often does anyone, joselynstefanie aga family, hit, punch or physically hurt you? 01/08/2024 How often does anyone, manuela aga family, insult, scream, curse or threaten [...] as of this encounter Progress Notes * Hugo Vergara MD PhD - 03/14/2024 1239 EDT [facility] GASTROENTEROLOGY AND HEPATOLOGY OUTPATIENT LETTER - 03/14/2024 Linda Blancas MD [place] [address] [address] [place] [address] Patient: Sunshine Pleitez Date of : [address] Blancas: I am writing to provide you with updated information concerning Sunshine Pleitez. As you know, she is a 63-year-old woman with metastatic breast cancer (with hepatic involvement) and portal hypertensive ascites. With adjustment of the diuretic regimen, ascites has come under medical control, such that large-volume paracentesis has not been required in several weeks. Laboratory data obtained on 03/13/2024 show white blood cell count 9.68, hematocrit 38.3, platelets 228, bilirubin 1.3, alkaline phosphatase 421, ALT 36, AST 61, albumin 3.6, sodium 132, potassium 4.3, creatinine 0.70. The current diuretic regimen (furosemide 40 mg daily, spironolactone 200 mg daily) appears to be sufficient for ascites control. This should be continued indefinitely. The patient should continue to monitor her weight and status of abdominal distention. If clinical ascites recurs, please reach out to me directly for additional input. My only other recommendation is that as long as the diuretic dosages have not changed, that you monitor a basic (or comprehensive) metabolic panel at least every 3 months. I have not scheduled a routine follow-up appointment, but I would be prepared to be a resource to you and to medical oncologistDr Alisson Carreon for liver related issues in the future. Thank you once again for allowing me to participate in the care of this patient. Should you have any additional questions, please let me know. Sincerely, Hugo Vergara MD,PhD cc: MD Alisson Aguilera MD Geoffrey Scriver, MD documented in this encounter Plan of Treatment Upcoming Encounters Date Type Department Care Team (Late st Contact Info) Description 04/02/2024 10:30 EDT Appointment [facility] Interventional Radiology Unit [address] [place] [address] [phone] 04/02/2024 15:15 EDT Office Visit [facility] Surgical Oncology - [address] [phone] Adolfo Carreno MD [address] [place] [phone] 04/05/2024 9:30 EDT Telemedicine [facility] Palliative Care Services [address] [place] [address] [phone] Chichi Woods MD [address] [place] [phone] 04/11/2024 15:00 EDT Telemedicine [facility] Hematology & Oncology - [address] [phone] Alisson Carreon MD [address] [place] [phone] 04/13/2024 13:30 EDT Appointment [facility] Hematology & Oncology [address] [phone] 04/13/2024 14:00 EDT Appointment [facility] Hematology & Oncology [address] [phone] 04/16/2024 10:00 EST Telemedicine [facility] Palliative Care Services [address] [place] [address] [phone] Chichi Woods MD [address] [place] [phone] 04/24/2024 9:00 EST Appointment [facility] Radiology CT Outpatient - [address] [address] 04/24/2024 11:00 EST Appointment [facility] Breast Imaging - [facility] [address] [place] [address] 04/27/2024 12:00 EST Appointment [facility] Hematology & Oncology - [address] [address] 05/02/2024 15:00 EST Telemedicine [facility] Hematology & Oncology - [address] 288131 Alisson Carreon MD [address] [place] [phone] 05/04/2024 10:15 EST Ancillary Procedure [facility] Cardiology - [address] [place] [address] 05/04/2024 11:30 EST Appointment [facility] Hematology & Oncology - [address] 776131 05/04/2024 12:00 EST Appointment [facility] Hematology & Oncology - [address] 277181 06/12/2024 13:00 EST Appointment [facility] Radiology CT - [address] 457051 documented as of this encounter Visit Diagnoses Not on filedocumented in this encounter Care Teams Technical Adjuster Relationship Specialty Start Date End Date Linda Blancas MD [address] [place] [address] 30 [place], [place] 577402 PCP - General 01/06/11 Adolfo Carreno MD [address] [place] [phone] General Surgery 04/26/19 documented as of this encounter
--- OUTSIDE RECORDS SUMMARY | 2024-03-20 14:31 | XMS_ITS | Encounter Summary ---
Author Organization [facility] Address [address] [place] [address] Care Team Providers Care Info Print Press Operator Name Role Phone Linda Blancas MD Primary Care Provider [phone] Adolfo Carreno MD Unavailable [phone] Reason for Referral * Consult (Routine/Next Available) - Authorization Not Required Specialty Diagnoses / Procedures Referred By Doug hearn Referred To Contact Diagnoses Malignant neoplasm of female breast, unspecified estrogen receptor status, unspecified laterality, unspecified site of breast ([facility]) Alisson Carreon MD [address] [place] [address] [facility] Ep[facility] Hem/Onc [address] [place] [address] Referral ID Status Reason Start Date Expiration Date Visits Requested Visits Authorized [id number] Authorization Not Required Specialty Services Required 4 1 1 Question Answer Unitentional weight loss: <10% UBW - >10% UBW Yes - losing weight. Down to 99lbs Symptom management: Yes - weight loss Symptom management specify: steadily losing weight and needs recommendations for high calorie (healthy) options Comments Sendy Daly has had a very complicated couple of months with her disease and side effects from treatment. She's been losing weight and is concerned that she's now at 99lbs. Healthy eater at baseline and is struggling to gain weight. She's available today but then out of town until Tuesday. Encounter Details Date Type Department Care Team (Late st Contact Info) Description 03/19/2024 Orders Only [facility] Hematology & Oncology - Main [address] [address] Trinh Posey Malignant neoplasm of female breast, unspecified estrogen receptor status, unspecified laterality, unspecified site of breast (HCC-CMS) (Primary Dx) Social History Tobacco Use Types Packs/Day Years Used Date Smoking Tobacco: Never Passive Smoke Exposure: Never Smokeless Tobacco: Never Alcohol Use Standard Drinks/Week Comments Not Currently 1 (1 standard drink = 0.6 oz pur e alcohol) [facility] Utilities Answer Date Recorded In the past [...] were you homeless or living in a senior care (including now)? No 01/10/2024 Interpersonal Safety Answer Date Record ed How often does anyone, manuela yung family, hit, punch or physically hurt you? 01/08/2024 How often does anyone, inclu ding family, insult, scream, curse or threaten to [...] onset 12/12/2023 documented as of this encounter Plan of Treatment Upcoming Encounters Date Type Department Care Team (Late st Contact Info) Description 04/02/2024 10:30 EDT Appointment [facility] Interventional Radiology Unit [address] [place] [address] [phone] 04/02/2024 15:15 EDT Office Visit [facility] Surgical Oncology - [facility] [address] [place], [place] 202151 Adolfo Carreno MD [address] [place] [address], Level 2 [place] [phone] 04/05/2024 9:30 EDT Telemedicine [facility] - [facility] Palliative Care Services [address] [place] [address] [phone] Chichi Woods MD [address] [place] [address] 262 [place] [phone] 04/11/2024 15:00 EDT Telemedicine [facility] Hematology & Oncology - [address] [phone] Alisson Carreon MD [address] [place] [address] 2 [place] [phone] 04/13/2024 13:30 EDT Appointment [facility] Hematology & Oncology - [address] [phone] 04/13/2024 14:00 EDT Appointment [facility] Hematology & Oncology - [address] [phone] 04/16/2024 10:00 EST Telemedicine [facility] - [facility] Palliative Care Services [address] [place] [address] [phone] Chichi Woods MD [address] [place] [address] 262 [place] [phone] 04/24/2024 9:00 EST Appointment [facility] Radiology CT Outpatient - [address] [phone] 04/24/2024 11:00 EST Appointment [facility] Breast Imaging - [address] [id number] 04/27/2024 12:00 EST Appointment [facility] Hematology & Oncology - [address] [id number] 05/02/2024 15:00 EST Telemedicine [facility] Hematology & Oncology - [address] [phone] Alisson Carreon MD [address] [place] [address] 2 [place] [phone] 05/04/2024 10:15 EST Ancillary Procedure [facility] Cardiology - [address] [place] [address] 05/04/2024 11:30 EST Appointment [facility] Hematology & Oncology [address] [id number] 05/04/2024 12:00 EST Appointment [facility] Hematology & Oncology [address] [phone] 06/12/2024 13:00 EST Appointment [facility] Radiology CT - [address] 378151 Scheduled Referrals Name Type Priority Associated Diagnoses Order Schedule [facility] NUTRITION SERVICES Outpatient Referral Routine/Next Available Malignant neoplasm of female breast, unspecified estrogen receptor status, unspecified laterality, unspecified site of breast ([facility]) Expected: 03/26/2024 (Approximate), Expires: 03/19/2025 documented as of this encounter Visit Diagnoses Diagnosis Malignant neoplasm of female breast, unspecified estrogen receptor status, unspecified laterality, unspecified site of breast (HCC-CMS)- Primary documented in this encounter Care Teams Info Print Press Operator Relationship Specialty Start Date End Date Linda Blancas MD [address] [place] [address] 30 [place] [address] PCP - General 01/06/11 Adolfo Carreno MD [address] [place] [address] 2 [place] [phone] General Surgery 04/26/19 documented as of this encounter
--- OUTSIDE RECORDS SUMMARY | 2024-03-20 14:31 | XMS_ITS | Encounter Summary ---
Author Organization [facility] Address [address] [place] [address] Care Team Providers Care Vegetable Loader Name Role Phone Linda Blancas MD Primary Care Provider [phone] Adolfo Carreno MD Unavailable [phone] Encounter Details Date Type Department Care Team (Late st Contact Info) Description 03/13/2024 Orders Only [facility] Interventional Radiology Unit [address], [place] [id number] Moises Herrera MD [address] [place] [phone] Social History Tobacco Use Types Packs/Day Years Used Date Smoking Tobacco: Never Passive Smoke Exposure: Never Smokeless Tobacco: Never Alcohol Use Standard Drinks/Week Comments Not Currently 1 (1 standard drink = 0.6 oz pur e alcohol) [facility] Utilities Answer Date Recorded In the past 12 months has e [employer], gas, oil, or water [employer] threatened to shut off services in your [...] were you homeless or living in a penitentiary (including now)? No 01/10/2024 Interpersonal Safety Answer [...] Contact Info) Description 04/02/2024 10:30 EDT Appointment [facility] Interventional Radiology Unit [address] [place] [address] [phone] 04/02/2024 15:15 EDT Office Visit [facility] Surgical Oncology - [address] [address] Adolfo Carreno MD [address] [place] [address] [phone] 04/05/2024 9:30 EDT Telemedicine [facility] Palliative Care Services [address] [place] [address] [phone] Chichi Woods MD [address] [place] [address] [phone] 04/11/2024 15:00 EDT Telemedicine [facility] Hematology & Oncology [address] [phone] Alisson Carreon MD [address] [place] [address] [phone] 04/13/2024 13:30 EDT Appointment [facility] Hematology & Oncology [address] [address] 04/13/2024 14:00 EDT Appointment [facility] Hematology & Oncology [address] 912571 04/16/2024 10:00 EST Telemedicine [facility] Palliative Care Services [address] [place] [address] [phone] Chichi Woods MD [address] [place] [address] [phone] 04/24/2024 9:00 EST [facility] Radiology [facility] Outpatient - [address] [address] 04/24/2024 11:00 EST Appointment [facility] Breast Imaging - [facility] [address] [place] [address] 04/27/2024 12:00 EST Appointment [facility] Hematology & Oncology - [address] [address] 05/02/2024 15:00 EST Telemedicine [facility] Hematology & Oncology - [address] 828151 Alisson Carreon MD [address] [place] [address] 2 [place] [phone] 05/04/2024 10:15 EST Ancillary Procedure [facility] Cardiology [place] [address] [place] [address] 05/04/2024 11:30 EST Appointment [facility] Hematology & Oncology - [address] 111461 05/04/2024 12:00 EST Appointment [facility] Hematology & Oncology [address] 554651 06/12/2024 13:00 EST Appointment [facility] Radiology CT - [address] 015141 documented as of this encounter Visit Diagnoses Not on filedocumented in this encounter Care Teams Vegetable Loader Relationship Specialty Start Date End Date Linda Blancas MD [facility] [address] [place], [place] 907122 PCP - General 01/06/11 Adolfo Carreno MD [address] [place] [address] 2 [place] [phone] General Surgery 04/26/19 documented as of this encounter
--- OUTSIDE RECORDS SUMMARY | 2024-03-20 14:31 | XMS_ITS | Encounter Summary ---
Author Organization [facility] Address [address] [place] [address] Care Team Providers Care Weekend Caregiver Name Role Phone Linda Blancas MD Primary Care Provider [phone] Adolfo Carreno MD Unavailable Reason for Visit * Reason Onset Date Comments Results 03/14/2024 Encounter Details Date Type Department Care Team (Late st Contact Info) Description 03/14/2024 Telephone [facility] Gastroenterology - [facility] [address], [place] 275431 Yovana Bowman, SHELLEY Results Social History Tobacco Use Types Packs/Day Years Used Date Smoking Tobacco: Never Passive Smoke Exposure: Never Smokeless Tobacco: Never Alcohol Use Standard Drinks/Week Comments Not Currently 1 (1 standard drink = 0.6 oz pur e alcohol) [facility] Utilities Answer Date Recorded In the past 12 months has e [employer], gas, oil, or water [employer] threatened to shut off services in your [...] were you homeless or living in a care home (including now)? No 01/10/2024 Interpersonal Safety Answer [...] encounter Miscellaneous Notes * Telephone Encounter - Yovana Bowman RN - 03/14/2024 7374 EDT See [employer] message. * Telephone Encounter - Yovana Bowman RN - 03/14/2024 1023 EDT Date Weight (lb) Spironolactone Furosemide Na K Cr GFR 01/25/24 100 mg 20 mg 136 5.3 0.54 104 01/31/24 109 100 mg 40 mg 134 4.0 0.54 104 02/07/24 115 200 mg 40 mg 132 4.1 0.62 101 02/09/24 110 post para 200 mg 40 mg 02/11/24 111.6 200 mg 40 mg 02/22/24 102.2 200 mg 40 mg 136 3.7 0.65 99 02/27/24 101.8 200 mg 40 mg 03/01/24 103 200 mg 40 mg 133 3.8 0.94 69 03/04/24 104.6 200 mg 40 mg 03/13/24 200 mg 40 mg 132 4.3 0.70 98 My weight has been consistent (100-105lbs) since my last paracentesis on 02/21. - see [employer] message from the patient(03/05/24). documented in this encounter Plan of Treatment Upcoming Encounters Date Type Department Care Team (Late st Contact Info) Description 04/02/2024 10:30 EDT Appointment [facility] Interventional Radiology Unit [address] [place] [address] 04/02/2024 15:15 EDT Office Visit [facility] Surgical Oncology - [facility] [address] [place] [address] Adolfo Carreno MD 111 [facility], Level 2 [place] [phone] 04/05/2024 9:30 EDT Telemedicine [facility] Palliative Care Services [address] [place] [address] Chichi Woods MD [address] [phone] 04/11/2024 15:00 EDT Telemedicine [facility] Hematology & Oncology - [address] [phone] Alisson Carreon MD [address] [place] [address] 2 [place] [phone] 04/13/2024 13:30 EDT Appointment [facility] Hematology & Oncology - [address] [phone] 04/13/2024 14:00 EDT Appointment [facility] Hematology & Oncology [address] 789301 04/16/2024 10:00 EST Telemedicine [facility] Palliative Care Services [address] [place] [address] [phone] Chichi Woods MD [address] [place] [address], [place] [address] [place] [phone] 04/24/2024 9:[address] [facility] Radiology CT Outpatient - [address] [id number] 04/24/2024 11:00 EST Appointment [facility] Breast Imaging - [address] 247041 04/27/2024 12:00 EST Appointment [facility] Hematology & Oncology - [address] [phone] 05/02/2024 15:00 EST Telemedicine [facility] Hematology & Oncology - [address] [phone] Alisson Carreon MD [address] [place] [address] 2 [place] [phone] 05/04/2024 10:15 EST Ancillary Procedure [facility] Cardiology - [place] [address] 05/04/2024 11:30 EST Appointment [facility] Hematology & Oncology [address] [phone] 05/04/2024 12:00 EST Appointment [facility] Hematology & Oncology [address] 580771 06/12/2024 13:[address] [facility] Radiology CT - [address] [phone] documented as of this encounter Visit Diagnoses Not on filedocumented in this encounter Care Teams Weekend Caregiver Relationship Specialty Start Date End Date Linda Blancas MD [facility] [address] [place] [address] PCP - General 01/06/11 Adolfo Carreno MD [address] [place] [address], [address] [place] [phone] General Surgery 04/26/19 documented as of this encounter
--- OUTSIDE RECORDS SUMMARY | 2024-03-20 14:31 | XMS_ITS | Encounter Summary ---
Author Organization [facility] Address [address] [place] [address] Care Team Providers Care Supervisor In Charge Name Role Phone Linda Blancas MD Primary Care Provider [phone] Adolfo Carreno MD Unavailable [phone] Reason for Visit * Reason Onset Date Comments Social Work 03/16/2024 Check in Encounter Details Date Type Department Care Team (Late st Contact Info) Description 03/16/2024 Telephone [facility] Hematology & Oncology - [facility] [address] [place], [place] 0[address] Trinh Posey Social Work (Check in) Social History Tobacco Use Types Packs/Day Years Used Date Smoking Tobacco: Never Passive Smoke Exposure: Never Smokeless Tobacco: Never Alcohol Use Standard Drinks/Week Comments Not Currently 1 (1 standard drink = 0.6 oz pur e alcohol) [facility] Utilities Answer Date Recorded In the past 12 months has [employer], gas, oil, or water [employer] ? threatened to shut off services in your [...] any time in the past 12 m [facility], were you homeless or living in a fci (including now)? No 01/10/2024 Interpersonal Safety Answer Date Record ed How often does anyone, inclstefanie aga family, hit, punch or physically hurt you? 01/08/2024 How often does anyone, inclstefanie aga family, insult, scream, curse or threaten [...] * Telephone Encounter - Trinh Posey - 03/16/2024 0956 EDT Weekly check in message sent via [employer], I see that you're scheduled to resume your treatments as of today. Unfortunately, I'm remote on Tuesday's or I would stop by your chair to say hi. If there's anything I can assist with or support you with this coming week, do not hesitate to reach out to me. I will check in again next week as well. Narinder, Trinh Posey documented in this encounter Plan of Treatment Upcoming Encounters Date Type Department Care Team (Late st Contact Info) Description 04/02/2024 10:30 EDT Appointment [facility] Interventional Radiology Unit [address] [place] [address] [phone] 04/02/2024 15:15 EDT Office Visit [facility] Surgical Oncology - [address] [phone] Adolfo Carreno MD [address] [place] [address] 2 [place] [phone] 04/05/2024 9:[address] [facility] Palliative Care Services [address] [place] [address] [phone] Chichi Woods MD [address] [place] [address] [phone] 04/11/2024 15:00 EDT Telemedicine [facility] Hematology & Oncology [address] [phone] Alisson Carreon MD [address] [place] [address] [phone] 04/13/2024 13:30 EDT Appointment [facility] Hematology & Oncology [address] [phone] 04/13/2024 14:00 EDT Appointment [facility] Hematology & Oncology - [address] [address] 04/16/2024 10:[address] [facility] Palliative Care Services [address] [place], [place] 0[address] Chichi Woods MD 111 [facility], [address] [phone] 04/24/2024 9:00 EST Appointment [facility] Radiology CT Outpatient - [address] [address] 04/24/2024 11:00 EST Appointment [facility] Breast Imaging - [address] [address] 04/27/2024 12:00 EST Appointment [facility] Hematology & Oncology - [address] [phone] 05/02/2024 15:00 EST Telemedicine [facility] Hematology & Oncology - [address] [phone] Alisson Carreon MD [address] [place] [address], Level 2 [place] [phone] 05/04/2024 10:15 EST Ancillary Procedure [facility] Cardiology - [place] [address] 05/04/2024 11:30 EST Appointment [facility] Hematology & Oncology - [address] [address] 05/04/2024 12:00 EST Appointment [facility] Hematology & Oncology - [address] [address] 06/12/2024 13:00 EST Appointment [facility] Radiology CT - [address] [address] documented as of this encounter Visit Diagnoses Not on filedocumented in this encounter Care Teams Supervisor In Charge Relationship Specialty Start Date End Date Linda Blancas MD [facility] [address] [place] [address] PCP - General 01/06/11 Adolfo Carreno MD 111 [facility], Level [address] [place] [phone] General Surgery 04/26/19 documented as of this encounter
--- OUTSIDE RECORDS SUMMARY | 2024-03-20 14:31 | XMS_ITS | Encounter Summary ---
Author Organization [facility] Address [address] [place] [address] Care Team Providers Care Cnc Manufacturing Engineer Name Role Phone Linda Blancas MD Primary Care Provider [phone] Adolfo Carreno MD Unavailable [phone] Reason for Visit * Reason Comments Infusion * Episode Based Medications (Routine) - Authorization Not Required Specialty Diagnoses / Procedures [facility] Referred To Contact Diagnoses Malignant neoplasm of right female breast, unspecified estrogen receptor status, unspecified site of breast (HCC-CMS) Augustina Colin MD PhD [facility] Ep2 Infusion [address] [place] [address] Referral ID Status Reason Start Date Expiration Date Visits Requested Visits Authorized [id number] Authorization Not Required 10/12/2023 3 11 Encounter Details Date Type Department Care Team (Latest Contact Info) Description 03/16/2024 14:00 EDT - 03/16/2024 23:59 EDT Hospital Encounter [facility] Hematology & Oncology - [facility] [place] [address] [place] [address] Malignant neoplasm of right female breast, unspecified estrogen receptor status, unspecified site of breast (HCC-CMS) (Primary Dx); Primary malignant neoplasm of breast with metastasis (HCC-CMS); Osteopenia of necks of both femurs Discharge Disposition: Home or Self Care Social History Tobacco Use Types Packs/Day Years Used Date Smoking Tobacco: Never Passive Smoke Exposure: Never Smokeless Tobacco: Never Alcohol Use Standard Drinks/Week Comments Not Currently 1 (1 standard drink = 0.6 oz pur e alcohol) [facility] Utilities Answer Date Recorded In the [...] any time in the past 12 m [facility], were you homeless or living in a halfway (including now)? No 01/10/2024 Interpersonal Safety Answer [...] :47 EDT documented as of this encounter Last Filed Vital Signs Vital Sign Reading Time Taken Comments Blood Pressure 130/62 03/16/2024 1426 EDT Pulse 111 03/16/2024 1426 EDT Temperature 36.4 ??C (97.5 ??F) 03/16/2024 1426 EDT Respiratory Rate 16 03/16/2024 1426 EDT Oxygen Saturation 97% 03/16/2024 1426 EDT Inhaled Oxygen Concentration - - Weight 45.9 kg (101 lb 4.8 oz) 03/16/2024 1426 E DT Height - - Body Mass Index 19.15 01/31/2024 0943 EDT documented in this encounter Functional Status Functional Status Response [...] Date End Date apixaban (ELIQUIS) 2.5 mg tabletIndications:Alejandro herbert neoplasm of right female [...] mouth daily. cyclobenzaprine (FLEXERIL) 10 mg tabletIndications:Alejandro herbert neoplasm of right female [...] documented in this encounter Progress Notes * Kendra Worthy, RN - 03/16/2024 1400 EDT Out-patient Chemotherapy Note Patient presents to clinic today for cycle # 5 , day # 1 of Fam-Trastuzumab Deruxtecan treatment plan. Reviewed lab results with patient CBC: Lab Results Component Value Date WBC 9.68 03/13/2024 HGB 13.0 03/13/2024 HCT 38.3 03/13/2024 PLT 228 03/13/2024 NEUTROABS 6.73 03/13/2024 Chemistry: Lab Results Component Value Date NA 132 (L) 03/13/2024 K 4.3 03/13/2024 BUN 24 03/13/2024 CREATININE 0.70 03/13/2024 CALCIUM 10.1 03/13/2024 MG 2.1 03/13/2024 LFT: Lab Results Component Value Date TBIL 1.3 03/13/2024 ALKPHOS 421 (H) 03/13/2024 AST 61 (H) 03/13/2024 ALT 36 (H) 03/13/2024 LIPASE 116 12/12/2023 Parameters for today???s treatment met. Patient noted with single IVAD for access. IV flushed, site patent, unremarkable, and without redness and brisk blood return noted before and after all chemotherapy and/or immunotherapy infusions. Patient received pre-meds (Aloxi, Decadron and Emend) Enhertu filtered in D5W over 30 minutes (see MAR). Xgeva administered subcutaneous to RUE. Patient confirmed she is taking calcium and vitamin d supplementation, denied any dental pain or upcoming dental procedures. Patient tolerating chemotherapy treatment at this time with no signs of reaction or side effects. Patient education: Patient verbally educated on all medications administered today. Patient expressed understanding of education provided and no barriers identified. Patient' s single IVAD noted to have brisk blood return and device flushed per hospital policy. Access site noted to be patent, unremarkable, and without redness. IVAD de-accessed, dressing applied. Patient encouraged to call clinic with any issues. I was supervised by Dr. Lopez who was present and immediately available in the office suite. Kendra Worthy RN documented in this encounter Miscellaneous Notes * Addendum Note - Elena Oneill - 03/16/2024 1400 EDTEncounter addended by: Elena Oneill on: 03/19/2024 8:49 Actions taken: Charge Capture section accepted documented in this encounter Plan of Treatment Upcoming Encounters Date Type Department Care Team (Late st Contact Info) Description 04/02/2024 10:30 EDT Appointment [facility] Interventional Radiology Unit [address] [place] [address] [phone] 04/02/2024 15:15 EDT Office Visit [facility] Surgical Oncology - [address] [phone] Adolfo Carreno MD [address] [place] [address] [phone] 04/05/2024 9:30 EDT Telemedicine [facility] Palliative Care Services [address] [place] [address] [phone] Chichi Woods MD [address] [place] [address] [phone] 04/11/2024 15:00 EDT Telemedicine [facility] Hematology & Oncology [address] [phone] Alisson Carreon MD [address] [place] [address] [phone] 04/13/2024 13:30 EDT Appointment [facility] Hematology & Oncology [address] [phone] 04/13/2024 14:00 EDT Appointment [facility] Hematology & Oncology [address] 467001 04/16/2024 10:00 EST Telemedicine [facility] Palliative Care Services [address] [place] [address] 761951 Chichi Woods MD [address] [place] [address], [address] [phone] 04/24/2024 9:00 EST Appointment [facility] Radiology CT Outpatient - [address] [id number] 04/24/2024 11:00 EST Appointment [facility] Breast Imaging - [address] 301191 04/27/2024 12:00 EST Appointment [facility] Hematology & Oncology [address] 963191 05/02/2024 15:00 EST Telemedicine [facility] Hematology & Oncology [address] [address] Alisson Carreon MD [address] [place] [address], [facility], Level 2 [place] [phone] 05/04/2024 10:15 EST Ancillary Procedure [facility] Cardiology - [place] [place] [address] 05/04/2024 11:30 EST Appointment [facility] Hematology & Oncology [address] [phone] 05/04/2024 12:00 EST Appointment [facility] Hematology & Oncology - [address] [phone] 06/12/2024 13:00 EST Appointment [facility] Radiology CT - [address] [phone] Scheduled Orders Name Type Priority Associated Diagnoses Orde r Schedule PHOSPHORUS Lab STAT Primary malignant neoplasm of breast with metastasis (HCC-CMS) Ordered: 03/16/2024 documented as of this encounter Procedures Procedure Name Priority Date/Time Associated Diagnosis Comments PHOSPHORUS STAT 03/13/2024 7:38 EDT Primary malignant neoplasm of breast with metastasis (HCC-CMS) documented in this encounter Results * PHOSPHORUS (03/13/2024 7:38 EDT) Phosphorus 4.1 2.5 - 4.5 mg/dL 03/16/2024 15:41 EDT [facility]OR[facility]ORY SERVICES Blood VENOUS BLOOD / Unknown Venipuncture / Unknown 03/13/2024 7:38 EDT 03/13/2024 7:52 EDT Alisson Carreon MD CHEMISTRY & BLOOD G ORDERABLES [facility] [address] [place] [address] documented in this encounter Visit Diagnoses Diagnosis Malignant neoplasm of right female breast, unspecified estrogen receptor status, unspecified site of breast (HCC-CMS)- Primary Primary malignant neoplasm of breast with metastasis (HCC-CMS) Osteopenia of necks of both femurs documented in this encounter Administered Medications Inactive Administered Medications - up to 3 most recent administrations Medication Order MAR Action Action Date Dose Rate Site denosumab (XGEVA) injection 120 mg 120 mg, subcutaneous, NOW X1, 1 dose, On Tue03/16/24 at 1615, Routine Given 03/16/2024 16:31 EDT 120 mg Right Arm dexAMETHasone (DECADRON) tablet 8 mg 8 mg, oral, NOW X1, 1 dose, On Tue03/16/24 at 1500, Routine Given 03/16/2024 14:54 EDT 8 mg dextrose 5 % (D5W) infusion intravenous, PRN, Starting on Tue03/16/24 at 1434, Until 03/17/24 at 1433, Other Given 03/16/2024 14:54 EDT 250 mL fam-trastuzumab deruxtecan-nxki (Enhertu) 247.8 mg in dextrose 5% (D5W) 100 mL IVPB 247.8 mg (rounded from 247.86 mg = 5.4 mg/kg ? 45.9 kg Treatment plan Recorded weight), intravenous, Administer over 90 Minutes, NOW X1, 1 dose, On Tue03/16/24 at 1530 Given 03/16/2024 15:50 EDT 247.8 mg fosaprepitant (EMEND) 150 mg in sodium chloride (NS) 0.9 % 150 mL infusion 150 mg, intravenous, Administer over 30 Minutes, NOW X1, 1 dose, On Tue03/16/24 at 1500, Routine New Bag 03/16/2024 15:08 EDT 150 mg palonosetron (ALOXI) injection 0.25 mg 0.25 mg, intravenous, NOW X1, 1 dose, On Tue03/16/24 at 1500, Routine Given 03/16/2024 14:54 EDT 0.25 mg sodium chloride 0.9 % (flush) flush 20 mL 20 mL, intercatheter, PRN, Starting on Tue03/16/24 at 1500, Until Tue03/19/24 at 0159, PIV removal or central line de-access, Routine Given 03/16/2024 16:25 EDT 20 mL documented in this encounter Orders Medications Ordered That Vj ht Not Have Been Administered Count Last Ordered Date First Ordered Date diphenhydrAMINE (BENADRYL) injection 50 mg 1 03/16/2024 epinephrine anaphylaxis kit 1 03/16/2024 methylPREDNISolone sod suc(P F) (SOLU-MEDROL) injection 100 mg 1 03/16/2024 Nursing Count Last Ordered Date First Orde red Date INFORMED CONSENT 2 03/16/2024 NURSING COMMUNICATION 1 03/16/2024 Appointment Requests Count Last Ordered Date Fi rst Ordered Date ONCBCN INFUSION APPOINTMENT REQUEST - CALCULATED 1 03/16/2024 ONCBCN INJECTION APPOINTMENT REQUEST 1 09/2023 documented in this encounter Care Teams Cnc Manufacturing Engineer Relationship Specialty Start Date End Date Linda Blancas MD [facility] [address] [place] [address] PCP - General 01/06/11 Adolfo Carreno MD [address] [place] [address], [facility], Level 2 [place] [phone] General Surgery 04/26/19 documented as of this encounter
--- OUTSIDE RECORDS SUMMARY | 2024-03-20 14:31 | XMS_ITS | Encounter Summary ---
Author Organization [facility] Address [address] [place] [address] Care Team Providers Care Information Systems Administrator Name Role Phone Linda Blancas MD Primary Care Provider [phone] Adolfo Carreno MD Unavailable [phone] Encounter Details Date Type Department Care Team (Late st Contact Info) Description 03/13/2024 Orders Only [facility] Radiology - [facility] [address], [place] [id number] Allen Miller MD [address] [place] [phone] Social History Tobacco Use Types Packs/Day Years Used Date Smoking Tobacco: Never Passive Smoke Exposure: Never Smokeless Tobacco: Never Alcohol Use Standard Drinks/Week Comments Not Currently 1 (1 standard drink = 0.6 oz pur e alcohol) [facility] Utilities Answer Date Recorded In the past 12 months has e [employer], gas, oil, or water [employer] threatened to shut off services in your [...] were you homeless or living in a detention (including now)? No 01/10/2024 Interpersonal Safety Answer Date Record ed How often does anyone, manuela ynug family, hit, punch or physically hurt you? [...] Description 04/02/2024 10:30 EDT Appointment [facility] Interventional Radiology Unit [address] [place] [address] [phone] 04/02/2024 15:15 EDT Office Visit [facility] Surgical Oncology - [address] [address] Adolfo Carreno MD [address] [place] [address] [phone] 04/05/2024 9:30 EDT Telemedicine [facility] Palliative Care Services [address] [place] [address] [phone] Chichi Woods MD [address] [place] [phone] 04/11/2024 15:[address] [facility] Hematology & Oncology - [address] [phone] Alisson Carreon MD [address] [place] [address] [phone] 04/13/2024 13:[address] [facility] Hematology & Oncology [address] [id number] 04/13/2024 14:[address] [facility] Hematology & Oncology [address] [phone] 04/16/2024 10:00 EST Telemedicine [facility] Palliative Care Services [address] [place] [address] 301171 Chichi Woods MD [address] [place] [address] [phone] 04/24/2024 9:00 EST Appointment [facility] Radiology CT Outpatient - [address] [address] 04/24/2024 11:00 EST Appointment [facility] Breast Imaging - [facility] [place] [address] [place] [address] 04/27/2024 12:[address] [facility] Hematology & Oncology - [address] [address] 05/02/2024 15:[address] [facility] Hematology & Oncology - [address] [phone] Alisson Carreon MD [address] [place] [address] [address] [place] [phone] 05/04/2024 10:15 EST Ancillary Procedure [facility] Cardiology [place] [place] [address] 05/04/2024 11:[address] [facility] Hematology & Oncology - [address] [address] 05/04/2024 12:[address] [facility] Hematology & Oncology - [address] [phone] 06/12/2024 13:00 EST Appointment [facility] Radiology CT - [address] [phone] documented as of this encounter Visit Diagnoses Not on filedocumented in this encounter Care Teams Information Systems Administrator Relationship Specialty Start Date End Date Linda Blancas MD [address] [place] [address] [address] [place], [place] [id number] PCP - General 01/06/11 Adolfo Carreno MD [address] [place] [address] [address] [place] [phone] General Surgery 04/26/19 documented as of this encounter
--- OUTSIDE RECORDS SUMMARY | 2024-03-20 14:32 | XMS_ITS | Encounter Summary ---
Author Organization [facility] Address [address] [place] [address] Care Team Providers Care Gis Analyst Developer Name Role Phone Linda Blancas MD Primary Care Provider [phone] Adolfo Carreno MD Unavailable [phone] Reason for Visit * Reason Comments Follow-up Encounter Details Date Type Department Care Team (Late st Contact Info) Description 02/21/2024 9:30 EDT Telemedicine [facility] Hematology & Oncology - [address] [phone] Alisson Carreon MD [address] [place] [address], [address] [place] [phone] Malignant neoplasm of right female breast, unspecified estrogen receptor status, unspecified site of breast (HCC-CMS) (Primary Dx); 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, unspecified laterality, 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HCC-CMS); Primary malignant neoplasm of breast with metastasis (HCC-CMS); Acute hypoxic respiratory failure (HCC-CMS) Social History Tobacco Use Types Packs/Day Years Used Date Smoking Tobacco: Never Passive Smoke Exposure: Never Smokeless Tobacco: Never Alcohol Use Standard Drinks/Week Comments Not Currently 1 (1 standard drink = 0.6 oz pur e alcohol) [facility] Utilities Answer Date Recorded In the past 12 months has [employer], gas, oil, or water company threatened [...] any time in the past [facility], were you homeless or living in a residential (including now)? No 01/10/2024 Interpersonal Safety Answer Date Record ed How often does anyone, manuela aga family, hit, punch or physically hurt [...] Progress Notes * Alisson Carreon MD - 02/21/2024 0930 EDT Follow Up Breast Oncology Telemedicine Visit 02/21/24 Assessment & Plan 63 y.o. 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 She was ultimately discharged from the hospital on 01/19/24 with 8L oximyzer on atovaquone and prednisone for PJP treatment. New recurrent ascites since 11/08/23 first paracentesis (1800cc) in ER Per hepatology: Ascitic fluid analysis results indicate that ascites is from portal hypertension, and that the patient would benefit from diuretics. Starting furosemide 20 mg daily, spironolactone 50mg daily, track weight. She was also noted to have a UE thrombus and a PE->eliquis since 11/09/23 02/15/24 + COVID on lageverio for 5 days CA 27-29: 28 (05/17/2019)->377 (11/26/21)->69 (08/31/22 eugene from [place]!)->864 (10/11/23)->1184 (11/08/23) ->836 (11/29/23) -> 422 (12/20/23) ->120 (03/10/24) Summary of therapy: 10/2016- 03/2018 letrozole + palbociclib (poor tolerance, mouth sores) then single agent letrozole until 02/2020->new cervical LN mets and 02/2020 MRI liver with possible new small mets 04/2019 started zometa 02/2020 Fulvestrant + abemaciclib until 05/2020 stopped for diarrhea then single agent fulvestrant until 06/2021 then adds palbociclib 11/2021 liver MRI with new metastases and bone mets 11/2021 - 06/2023 capecitabine 03/2022 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 Lung biopsy 06/22/23 - adenocarcinoma consistent with metastatic breast cancer; ER+ >90%, DE < 5%; HER2 2+ equivocal; [place] FISH testing negative 11/29/23 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%) -> ND (01/2024) Genetics: NMN VUS per notes 11/09/23 CTA: acute PE's, interval enlarged LN's (IM, left axillary, subpec) 12/12/23 (c/w 11/09/23) CT AP: extensive unchanged liver mets, moderate to large ascites, Pe's, bone scan 11/25/23: new focus of left ninth rib Enhertu #3 prednisone 10mg ->no need for atovaqune pcp ppx per pulm will change zometa to denosumab on 12/20/23 because of potential new met/small rib fracture on bone scan 11/202312/20/23 Enheru #4 + denosumab #1, C - coming down nicely CT chest every 9-12 weeks (r/o pneumonitis side effect) Repeat CT 03/13 then proceed with enhertu if healed from PJP and Covid and if cleared by ID Continue diuretics with hepatology, ascitic fluid from portal HTN, consider aspira catheter, 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 Ultrasound performed in [place] identifying an irregular heterogeneous soft tissue mass measuring 1.2 x 1.2 x 1.5 cm. b. 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 HER-2 1+ by IHC. ANNE MARIE revealed a HER2 to chromosome 17 ratio of 1.3 and was nonamplified. c. Staging scans: MRI head negative; CT scan of the chest identified numerous scattered bilateral nodules throughout the lungs, the largest measuring 4 mm. The soft tissue mass was identified near the right breast implant; Enlarged mediastinal lymph nodes. A CT scan of the abdomen and nuclear bone scan were without evidence of malignancy. d. Biopsy of mediastinal lymph node consistent with adenocarcinoma, breast origin e. Letrozole initiated October 2016 and palbociclib initiated November 2016. Palbociclib with dose reduction due to mouth sores. Discontinued palbociclib Mar 2018 f. Excision of right breast tumor 07/07/17 and placement of tissue agent ticketing gate. 1.9 cm tumor at time ofsurgery, well differentiated, with LVI present, and negative margins. G. Biopsy left cervical LN 02/11/20 - consistent with metastatic adenocarcinoma consistent with breast primary H. Fulvestrant initiated 03/06/20; abemaciclib initiated 03/31/20 discontinued 06/01 due to diarrhea; palbociclib initiated March 2021 I. Capecitabine initiated December 2021 J. Y90 infusion to liver by Dr Moya 04/08/22 and again 05/14/22 K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 Lung biopsy 06/22/23 - adenocarcinoma consistent with metastatic breast cancer; ER+ >90%, DE < 5%; HER2 2+ equivocal; [place] FISH testing negative M. Elacestrant initiated early August 2023 Potential future treatment options: trodelvy, various chemo's (eribulin, gem/cis, taxane/abraxane, Navelbine, adriamycin/doxil) 11/29/23: Presents today with for transition of care 3rd Enhertu today Second paracentesis today, feels much better Also on prednisone 10mg with better energy 12/20/23: Recent admission for AMS thought to be med induced 12/13/23 brain MRI: DORETHA She had 1700cc removed today (portal hypertension) Started weaning off gabapentin and venlafaxine (from 150mg to 75mg) and muscle cramps significantlyworsened 01/06/24: Zoom f/u to answer questions Worsening in SOB and cough since Tuesday After came home from hospital December 13 and after last paracentesis Tuesday (3 liter removed) loose bowels for 3 days I have never been that cleaned) since then breathing more difficult, more labored, cannot walk, heart races every time climbs stairs and needs to sit down More coughing long discussion with pt about CT chest findings concerning [facility] that can belife threatening and since she has acute worsening of her SOB, cough and now desating to 6-80% she needs to go to ER urgently to start steroids, r/o infection, start O2, plan on admission. Though they were hesitant at first to go to ER they agree to now. She is depressed and tired of the situation,it is very difficult. Treatment lorenzo we discussed likely changing to weekly taxol or abraxane and this can be started after she stabilizes from respiratory standpoint I have answered all the questions to the best of my ability I think palliative care and SW consult would be a good idea. 02/16/24: Zoom f/u diagnosed with covid yesterday and started on lageverio Feels OK overall 76% better since discharge in Jan On 2L-3L 02 intermittent PFTs rescheduled to 03/08 Subjective Zoom f/u with pt and Feels OK, more Covid symptoms since yesterday (more nauseous and vomiting), took anti nausea pill and today better Postpone PFTs due to Covid symptoms, still sleeping a lot there is something still battling in my body, it may take Covid longer to shake Stopped prednisone last week and resumed atovaquone with ID Back on gabapentin and venlafaxine after trying to titrate off (decreased half of venlafaxine) and I talked Atovaquone expensive We reviewed Guardant results from 01/2024 non detected tumor fragments Objective There were no vitals filed for this visit. Wt Readings from Last 3 Encounters: 02/07/24 52.2 kg (115 lb) 01/31/24 49.4 kg (108 lb 14.4 oz) 01/31/24 54.4 kg (120 lb) Labs and Imaging IR PARACENTESIS-RADIOLOGY Result Date: 02/07/2024 Successful, uncomplicated paracentesis using sonographic guidance yielding 1.25 L of turbid fluid. Samuel Noble PA-C The procedure was performed by TANK Garcia, in interventional radiology. Direct supervision was provided by the attending physician, Dr. Palumbo. I have personally reviewedthe images and the above interpretation and agree with the findings. [id number] CT CHEST WO CONTRAST Result Date: 02/07/2024 Known metastatic breast cancer with involvement of the lung, liver and cervical nodes. Interval improvement of bilateral groundglass opacities with residual groundglass opacities in the left upper lobe, and bilateral lower lobes. The imaging findings may represent incomplete resolution of known pneumonia. However, underlying inflammatory pneumonitis may have a similar distribution and difficult to entirely exclude. [id number] IR PARACENTESIS-RADIOLOGY Result Date: 01/31/2024 Successful, uncomplicated paracentesis using sonographic guidance yielding 2 L fluid. LUNA Arguelles PA-C Interventional Radiology The procedure was performed by TANK Arguelles, in interventional radiology. Direct supervision was provided by the attending physician, Dr. Palumbo. I have personally reviewed the images and the above interpretation and agree with the findings. [id number] IR PARACENTESIS-RADIOLOGY Result Date: 01/25/2024 Successful removal of 1.5 liters of ascitic fluid from the abdomen. [id number] Data reviewed this visit include: problem list/past medical history, current medications, allergies, surgical history, family history, social history, last visit note, health maintenance items, recent labs, and recent imaging I spent a total of 45 minutes on the date of this encounter meeting with the patient and reviewing documentation/coordinating care as described in the above note. Unless otherwise noted, no procedures were performed at the time of the visit. TELEMEDICINE VIDEO VISIT Today's visit was provided through telemedicine video conferencing: I have reviewed the appropriateness of using video technology with the patient with regards to today's visit. The location of the patient : Home (where patient lives) The location of the provider: Office The following people and their roles were present for today's visit: Appointment Provider: Alisson Carreon MD The concept of ???Telemedicine?? has been described to the patient.? Patient has been informed of the anticipated benefits and possible risks.? Patient understands the information provided regardingtelemedicine, has had the opportunity to ask questions about this information, and all questions have been answered to patient???s satisfaction. Patient consents for the use of telemedicine in his/her medical care and authorizes the transmission of any relevant medical information to providers and their staff involved in patient???s medical or mental health care. Patient understands that they maybe responsible for copays, deductible or coinsurance for this service. Alisson Carreon MD documented in this encounter Plan of Treatment Upcoming Encounters Date Type Department Care Team (Late st Contact Info) Description 04/02/2024 10:30 EDT Appointment [facility] Interventional Radiology Unit [address] [place] [address] [phone] 04/02/2024 15:15 EDT Office Visit [facility] Surgical Oncology - [address] [phone] Adolfo Carreno MD [address] [place] [address], [address] [place] [phone] 04/05/2024 9:30 EDT Telemedicine [facility] Palliative Care Services [address] [place] [address] [phone] Chichi Woods MD [address] [place] [address], [address] [phone] 04/11/2024 15:00 EDT Telemedicine [facility] Hematology & Oncology - [address] [phone] Alisson Carreon MD [address] [place] [address] 2 [place] [phone] 04/13/2024 13:30 EDT Appointment [facility] Hematology & Oncology - [address] [phone] 04/13/2024 14:00 EDT Appointment [facility] Hematology & Oncology [address] [phone] 04/16/2024 10:[address] [facility] Palliative Care Services [address] [place] [address] Chichi Woods MD [address] [place] [phone] 04/24/2024 9:00 EST Appointment [facility] Radiology CT Outpatient - [address] [id number] 04/24/2024 11:00 EST Appointment [facility] Breast Imaging - [facility] [address] [phone] 04/27/2024 12:00 EST Appointment [facility] Hematology & Oncology - [address] [phone] 05/02/2024 15:00 EST Telemedicine [facility] Hematology & Oncology - [address] [phone] Alisson Carreon MD [address] [place] [address], [facility] [address] [place] [phone] 05/04/2024 10:15 EST Ancillary Procedure [facility] Cardiology - [address] [place] [address] 05/04/2024 11:30 EST Appointment [facility] Hematology & Oncology [address] [address] 05/04/2024 12:00 EST Appointment [facility] Hematology & Oncology [address] 940211 06/12/2024 13:00 EST Appointment [facility] Radiology CT - [address] [phone] documented as of this encounter Visit Diagnoses Diagnosis Malignant neoplasm of right female breast, unspecified estrogen receptor status, unspecified site of breast (HCC-CMS)- Primary 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, unspecified laterality, 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HCC-CMS) Primary malignant neoplasm of breast with metastasis (HCC-CMS) Acute hypoxic respiratory failure (HCC-CMS) documented in this encounter Orders Appointment Requests Count Last Ordered Date Fi rst Ordered Date [facility] CLINIC APPOINTMENT REQUEST 2 024 [facility] INFUSION APPOINTMENT REQUEST - CALCULATED 2 02/21/2024 documented in this encounter Care Teams Gis Analyst Developer Relationship Specialty Start Date End Date Lnida Blancas MD [address] [place] [address] 30 [place] [address] PCP - General 01/06/11 Adolfo Carreno MD [address] [place] [address], Level [address] [place] [phone] General Surgery 04/26/19 documented as of this encounter
--- OUTSIDE RECORDS SUMMARY | 2024-03-20 14:32 | XMS_ITS | Encounter Summary ---
Author Organization [facility] Address [address] [place] [address] Care Team Providers Care Manager Planning Name Role Phone Linda Blancas MD Primary Care Provider [phone] Adolfo Carreno MD Unavailable [phone] Reason for Visit * Reason Onset Date Comments Appointment Related 03/05/2024 Encounter Details Date Type Department Care Team (Late st Contact Info) Description 03/05/2024 Telephone [facility] Cancer Center Hematology & Oncology - [facility] [address] [place], [place] [phone] Alisson Carreon MD 111 [facility], Level 2 [place] [address] Appointment Related Social History Tobacco Use Types Packs/Day Years Used Date Smoking Tobacco: Never Passive Smoke Exposure: Never Smokeless Tobacco: Never Alcohol Use Standard Drinks/Week Comments Not Currently 1 (1 standard drink = 0.6 oz pur e alcohol) [facility] Utilities Answer Date Recorded In the past 12 months has [employer] electric, gas, oil, or water company threatened [...] encounter Miscellaneous Notes * Telephone Encounter - Hetal Avila - 03/05/2024 1201 EDT HemOnc Incoming Call Appointment Related Which type of appointment is this for? Infusion Visit Is this a return call from a imaging scheduler?No Change Date Date of appointment 03/16/2024 infusion to 03/13/2024 Please call to advise if this is possible and if all infusions will be on Fridays going forward. Hetal Avila 03/05/2024 12:02 documented in this encounter Plan of Treatment Upcoming Encounters Date Type Department Care Team (Late st Contact Info) Description 04/02/2024 10:30 EDT Appointment [facility] Interventional Radiology Unit [address] [place] [address] [phone] 04/02/2024 15:15 EDT Office Visit [facility] Surgical Oncology - [address] [phone] Adolfo Carreno MD [address] [place] [phone] 04/05/2024 9:30 EDT Telemedicine [facility] - [facility] Palliative Care Services [address] [place], [place] [phone] Chichi Woods MD [address] [place] [address], [address] [phone] 04/11/2024 15:00 EDT Telemedicine [facility] Hematology & Oncology - [address] [phone] Alisson Carreon MD [address] [place] [address] 2 [place] [phone] 04/13/2024 13:30 EDT Appointment [facility] Hematology & Oncology - [address] [phone] 04/13/2024 14:00 EDT Appointment [facility] Hematology & Oncology [address] [phone] 04/16/2024 10:00 EST Telemedicine [facility] - [facility] Palliative Care Services [address] [place] [address] [phone] Chichi Woods MD [address] [place] [address] [phone] 04/24/2024 9:00 EST Appointment [facility] Radiology CT Outpatient - [address] [id number] 04/24/2024 11:00 EST Appointment [facility] Breast Imaging - [facility] [address] [phone] 04/27/2024 12:00 EST Appointment [facility] Hematology & Oncology [address] [phone] 05/02/2024 15:00 EST Telemedicine [facility] Hematology & Oncology [address] 410691 Alisson Carreon MD [address] [place] [address], Level 2 [place] [phone] 05/04/2024 10:15 EST Ancillary Procedure [facility] Cardiology [place] [address] [place] [address] 05/04/2024 11:30 EST Appointment [facility] Hematology & Oncology - [address] [phone] 05/04/2024 12:00 EST Appointment [facility] Hematology & Oncology - [address] [address] 06/12/2024 13:00 Daniel [facility] Radiology CT - [facility] [address] [place], [place] 6035[address] documented as of this encounter Visit Diagnoses Not on filedocumented in this encounter Care Teams Manager Planning Relationship Specialty Start Date End Date Linda Blancas MD [facility] [address] [place] [address] PCP - General 01/06/11 Adolfo Carreno MD 111 [facility], [facility], Level 2 [place] [phone] General Surgery 04/26/19 documented as of this encounter
--- OUTSIDE RECORDS SUMMARY | 2024-03-20 14:32 | XMS_ITS | Encounter Summary ---
Author Organization [facility] Address [address] [place] [address] Care Team Providers Care Life Sciences Teacher Name Role Phone Linda Blancas MD Primary Care Provider [phone] Adolfo Carreno MD Unavailable [phone] Encounter Details Date Type Department Care Team (Late st Contact Info) Description 02/17/2024 Orders Only [facility] Cancer Center Hematology & Oncology - [address] [phone] Alisson Carreon MD 111 [facility], Level 2 [place] [address] Social History Tobacco Use Types Packs/Day Years Used Date Smoking Tobacco: Never Passive Smoke Exposure: Never Smokeless Tobacco: Never Alcohol Use Standard Drinks/Week Comments Not Currently 1 (1 standard drink = 0.6 oz pur e alcohol) [facility] Utilities Answer Date Recorded In the past 12 months has [employer] electric, gas, oil, or water company threatened [...] any time in the past 12 m [facility], were you homeless or living in a assisted (including now)? No 01/10/2024 Interpersonal Safety Answer [...] Progress Notes * Alisson Carreon MD - 02/17/2024 1048 EDT Per ID pt to remain on atovaquone secondary PJP ppx indefintaly documented in this encounter Plan of Treatment Upcoming Encounters Date Type Department Care Team (Late st Contact Info) Description 04/02/2024 10:30 EDT Appointment [facility] Interventional Radiology Unit [address] [place] [address] [phone] 04/02/2024 15:15 EDT Office Visit [facility] Surgical Oncology - [address] [phone] Adolfo Carreno MD [address] [place] [address] [phone] 04/05/2024 9:30 EDT Telemedicine [facility] Palliative Care Services [address] [place] [address] [phone] Chichi Woods MD [address] [place] [address] [phone] 04/11/2024 15:00 EDT Telemedicine [facility] Hematology & Oncology [address] [phone] Alisson Carreon MD [address] [place] [address] [phone] 04/13/2024 13:30 EDT Appointment [facility] Hematology & Oncology [address] [id number] 04/13/2024 14:00 EDT Appointment [facility] Hematology & Oncology [address] [id number] 04/16/2024 10:00 EST Telemedicine [facility] - [facility] Palliative Care Services [address] [place], [place] 140301 Chichi Woods MD [address] [place] [address], [address] [phone] 04/24/2024 9:00 EST Appointment [facility] Radiology CT Outpatient - [address] [id number] 04/24/2024 11:00 EST Appointment [facility] Breast Imaging - [facility] [place] [address] [place], [place] 546851 04/27/2024 12:00 EST Appointment [facility] Hematology & Oncology - [address] [phone] 05/02/2024 15:00 EST Telemedicine [facility] Hematology & Oncology - [address] [phone] Alisson Carreon MD [address] [place] [address], [facility], Level 2 [place] [phone] 05/04/2024 10:15 EST Ancillary Procedure [facility] Cardiology [place] [place] [address] 05/04/2024 11:30 EST Appointment [facility] Hematology & Oncology - [address] [phone] 05/04/2024 12:00 EST Appointment [facility] Hematology & Oncology [address] [phone] 06/12/2024 13:00 EST Appointment [facility] Radiology CT - [address] [phone] documented as of this encounter Visit Diagnoses Not on filedocumented in this encounter Care Teams Life Sciences Teacher Relationship Specialty Start Date End Date Linda Blancas MD [facility] [address] [place] [address] PCP - General 01/06/11 Adolfo Carreno MD [address] [place] [address], [facility] 2 [place] [phone] General Surgery 04/26/19 documented as of this encounter
--- OUTSIDE RECORDS SUMMARY | 2024-03-20 14:32 | XMS_ITS | Encounter Summary ---
Author Organization [facility] Address [address] [place] [address] Care Team Providers Care Bread Icer Name Role Phone Linda Blancas MD Primary Care Provider [phone] Adolfo Carreno MD Unavailable [phone] Reason for Referral * Test (Routine/Next Available) - Authorization Not Required Specialty Diagnoses / Procedures Referred By Contac t Referred To Contact Diagnoses Diffuse alveolar damage ([facility]-CMS) Procedures PULMONARY FUNCTION TESTING Pavan Bianchi MD [address] [place] [phone] Referral ID Status Reason Start Date Expiration Date Visits Requested Visits Authorized [id number] Authorization Not Required 01/25/2024 1 1 Reason for Visit * Test (Routine/Next Available) - Authorization Not Required Specialty Diagnoses / Procedures Referred By Contac t Referred To Contact Diagnoses Diffuse alveolar damage ([facility]) Procedures PULMONARY FUNCTION TESTING Pavan Bianchi MD [address] [place] [phone] Referral ID Status Reason Start Date Expiration Date Visits Requested Visits Authorized [id number] Authorization Not Required 01/25/2024 1 1 Encounter Details Date Type Department Care Team (Latest Contact Info) Description 03/08/2024 11:00 EDT - 03/08/2024 23:59 EDT Hospital Encounter [facility] Pulmonary Function Lab - [address] [address] [facility] Ped[facility], [facility] Pft Lab Diffuse alveolar damage (HCC-CMS) Discharge Disposition: Home or Self Care Social History Tobacco Use Types Packs/Day Years Used Date Smoking Tobacco: Never Passive Smoke Exposure: Never Smokeless Tobacco: Never Alcohol Use Standard Drinks/Week Comments Not Currently 1 (1 standard drink = 0.6 oz pur e alcohol) [facility] Utilities Answer Date Recorded In the [...] were you homeless or living in a retirement (including now)? No 01/10/2024 Interpersonal Safety Answer [...] Sig Dispensed Refills Start Date End Date atovaquone (MEPRON) 750 mg/5 mL suspension Take 10 mL by mouth every 24 hours. 840 mL 3 02/16/2024 calcium-vitamin D (OS-CHAR D) 500 mg(1,250mg) -200 unit per tablet Take 1 Tablet by mouth 2 times daily with breakfast and dinner. cholecalciferol, Vitamin D3, 25 mcg (1,000 unit) tablet Take 1 Tablet by mouth daily. cyclobenzaprine (FLEXERIL) 10 mg tabletIndications:Barbara gnant neoplasm of right female breast, unspecified estrogen receptor status, unspecified site of breast ([facility]-CMS) Take 1 Tablet by mouth 2 times daily as needed for Muscle Spasms. 60 Tablet 1 01/19/2024 furosemide (LASIX) 20 mg tablet Take 2 Tablets by mouth daily. 60 Tablet 1 01/26/2024 MULTIVITS W-CA,FE,OTHER MIN (WOMEN'S DAILY FORMULA ORAL) Take by mouth daily. naloxone (NARCAN) 4 mg/actuation nasal spray 0.1 mL by nasal route as needed for up to 2 doses for Opioid Reversal. 2 Each 01/19/2024 omeprazole (PRILOSEC) 40 mg capsuleIndications:Gas troesophageal reflux disease, unspecified whether esophagitis present Take [...] 3 08/16/2012 venlafaxine (EFFEXOR-XR) 75 mg XR capsuleIndications:Ani geoffrey malignant neoplasm of breast with metastasis (HCC-CMS) Take 1 Capsule by mouth daily for 360 days. 30 Capsule 11 01/06/2024 12/31/2024 apixaban (ELIQUIS) 5 mg tabletIndications:Prim hugo malignant neoplasm of breast with metastasis (HCC-CMS) Take 1 Tablet by mouth 2 times daily. 60 Tablet 11 12/07/2023 03/13/2024 documented as of this encounter Discharge Disposition Disposition Code Departure Means Destination Home or Self Care documented in this encounter Progress Notes * Nellie Todd PFT - 03/08/2024 1100 EDT Testing was performed and recorded in [employer]. See complete report in Procedures. documented in this encounter Plan of Treatment Upcoming Encounters Date Type Department Care Team (Late st Contact Info) Description 04/02/2024 10:30 EDT Appointment [facility] Interventional Radiology Unit [address] [place], [place] [phone] 04/02/2024 15:15 EDT Office Visit [facility] Surgical Oncology - [facility] [address] [place], [place] 417541 Adolfo Carreno MD 111 [facility], Level 2 [place] [phone] 04/05/2024 9:30 EDT Telemedicine [facility] - [facility] Palliative Care Services [address] [place] [address] [phone] Chichi Woods MD [address] [place] [address] [phone] 04/11/2024 15:00 EDT Telemedicine [facility] Hematology & Oncology [address] 076191 Alisson Carreon MD [address] [place] [address], Level [address] [place] [phone] 04/13/2024 13:30 EDT Appointment [facility] Hematology & Oncology [address] [phone] 04/13/2024 14:00 EDT Appointment [facility] Hematology & Oncology [address] [phone] 04/16/2024 10:00 EST Telemedicine [facility] - [facility] Palliative Care Services [address] [place] [address] [phone] Chichi Woods MD [address] [place] [address] [phone] 04/24/2024 9:00 EST Appointment [facility] Radiology CT Outpatient - [address] [id number] 04/24/2024 11:00 EST Appointment [facility] Breast Imaging - [address] 615991 04/27/2024 12:00 EST Appointment [facility] Hematology & Oncology - [address] 958161 05/02/2024 15:00 EST Telemedicine [facility] Hematology & Oncology - [address] 217721 Alisson Carreon MD [address] [place] [address], [facility] 2 [place] [phone] 05/04/2024 10:15 EST Ancillary Procedure [facility] Cardiology - [address] [place], [place] [phone] 05/04/2024 11:30 EST Appointment [facility] Hematology & Oncology - [address] 084091 05/04/2024 12:00 EST Appointment [facility] Hematology & Oncology [address] [phone] 06/12/2024 13:00 EST Appointment [facility] Radiology CT - [address] 945241 Pending Results Name Type Priority Associated Diagnoses Date /Time PULMONARY FUNCTION TESTING PFT Routine Diffuse alveolar damage (HCC-CMS) 03/08/2024 11:14 EDT documented as of this encounter Procedures Procedure Name Priority Date/Time Associated Diagnosis Comments PULMONARY FUNCTION TESTING Routine 03/08/2024 11:14 EDT Diffuse alveolar damage (HCC-CMS) documented in this encounter Visit Diagnoses Diagnosis Diffuse alveolar damage (HCC-CMS) Other diseases of lung, not elsewhere classified documented in this encounter Care Teams Bread Icer Relationship Specialty Start Date End Date Linda Blancas MD [facility] [address] [place] [address] PCP - General 01/06/11 Adolfo Carreno MD [address] [place] [address] 2 [place] [phone] General Surgery 04/26/19 documented as of this encounter
--- OUTSIDE RECORDS SUMMARY | 2024-03-20 14:32 | XMS_ITS | Encounter Summary ---
Author Organization [facility] Address [address] [place] [address] Care Team Providers Care Oven Attendant Name Role Phone Linda Blancas MD Primary Care Provider [phone] Adolfo Carreno MD Unavailable [phone] Reason for Visit * Reason Onset Date Comments Social Work 02/17/2024 support Encounter Details Date Type Department Care Team (Late st Contact Info) Description 02/17/2024 Telephone [facility] Cancer Center Hematology & Oncology - [facility] [address] [place], [place] [address] Trinh Posey Social Work (support) Social History Tobacco Use Types Packs/Day Years Used Date Smoking Tobacco: Never Passive Smoke Exposure: Never Smokeless Tobacco: Never Alcohol Use Standard Drinks/Week Comments Not Currently 1 (1 standard drink = 0.6 oz pur e alcohol) [facility] Utilities Answer Date Recorded In the past 12 months has [employer], gas, oil, or water [employer] threatened to shut off services in your [...] were you homeless or living in a snf (including now)? No 01/10/2024 Interpersonal Safety Answer [...] * Telephone Encounter - Trinh Posey - 02/17/2024 1253 EDT TC with pt and lengthy discussion about the complexity of her care over the past few months. Pt feels like things are back on track but for awhile was feeling overwhelmed with all of the specialists involved in her care. She feels that since her recent hospitalization all of my specialists came together and worked together. Unfortunately, she has covid and is feeling unwell but not as bad as the first time I got covid. Discussed my role as part of her oncology care team and focus around practical needs, emotional support and coordination of care. I offered to connect with her weekly either by TC or MyChart to check in and see how things are going. Pt appreciated this offer and feels it would be helpful to her and her . Made pt aware of our Online Content Coordinator Support Group and I offered to connect pt/ with a therapist. She asked me to mail her the SG list and she will share with her he's not a fan of [employer]. Pt did not express interest in counseling at this time. Provided supportive counseling and validated her concerns. She feels things are in a better place with regards to communication from her doctors. She will restart chemo once her lung stats has improved according to Dr. Yaya Tripp's note on 02/16/24. Plan- [facility]. Assist with care coordination and support Mailed pt list of support groups and my contact card documented in this encounter Plan of Treatment Upcoming Encounters Date Type Department Care Team (Late st Contact Info) Description 04/02/2024 10:30 EDT Appointment [facility] Interventional Radiology Unit [address] [place], [place] [phone] 04/02/2024 15:15 EDT Office Visit [facility] Surgical Oncology - [facility] [address] [place], [place] 045[address] Adolfo Carreno MD 111 [facility], Level 2 [place] [phone] 04/05/2024 9:30 EDT Telemedicine [facility] - [facility] Palliative Care Services [address] [place], [place] 694[address] Chichi Woods MD [address] [place] [address] 262 [place] [phone] 04/11/2024 15:00 EDT Telemedicine [facility] Hematology & Oncology - [address] [phone] Alisson Carreon MD [address] [place] [address], Level [address] [place] [phone] 04/13/2024 13:30 EDT Appointment [facility] Hematology & Oncology [address] [id number] 04/13/2024 14:00 EDT Appointment [facility] Hematology & Oncology [address] [phone] 04/16/2024 10:00 EST Telemedicine [facility] - [facility] Palliative Care Services [address] [place] [address] [phone] Chichi Woods MD [address] [place] [address] [phone] 04/24/2024 9:00 EST Appointment [facility] Radiology CT Outpatient - [address] 585291 04/24/2024 11:00 EST Appointment [facility] Breast Imaging - [address] 888171 04/27/2024 12:00 EST Appointment [facility] Hematology & Oncology - [address] 828651 05/02/2024 15:00 EST Telemedicine [facility] Hematology & Oncology - [address] 032521 Alisson Carreon MD [address] [place] [address], [facility] 2 [place] [phone] 05/04/2024 10:15 EST Ancillary Procedure [facility] Cardiology - [place] [address] [place] [address] 05/04/2024 11:30 EST Appointment [facility] Hematology & Oncology - [address] 830781 05/04/2024 12:00 EST Appointment [facility] Hematology & Oncology [address] [id number] 06/12/2024 13:00 EST Appointment [facility] Radiology CT - [address] [phone] documented as of this encounter Visit Diagnoses Not on filedocumented in this encounter Care Teams Oven Attendant Relationship Specialty Start Date End Date Linda Blancas MD [facility] [address] [place] [address] PCP - General 01/06/11 Adolfo Carreno MD [address] [place] [address], [facility] 2 [place] [phone] General Surgery 04/26/19 documented as of this encounter
--- OUTSIDE RECORDS SUMMARY | 2024-03-20 14:32 | XMS_ITS | Encounter Summary ---
Author Organization [facility] Address [address] [place] [address] Care Team Providers Care Chemical Analytical Sampler Name Role Phone Linda Blancas MD Primary Care Provider [phone] Adolfo Carreno MD Unavailable [phone] Reason for Referral * Radiology Services (Routine/Next Available) - Authorization Not Required Specialty Diagnoses / Procedures Referred By Contac t Referred To Contact Diagnoses Ascites Procedures IR PARACENTESIS-RADIOLOGY Hugo Vergara MD PhD [address] [place] [phone] [facility] Referral ID Status Reason Start Date Expiration Date Visits Requested Visits Authorized [id number] Authorization Not Required 02/07/2024 1 1 Reason for Visit * Radiology Services (Routine/Next Available) - Authorization Not Required Specialty Diagnoses / Procedures Referred By Contac t Referred To Contact Diagnoses Ascites Procedures IR PARACENTESIS-RADIOLOGY Hugo Vergara MD PhD [address] [place] [phone] [facility] Referral ID Status Reason Start Date Expiration Date Visits Requested Visits Authorized [id number] Authorization Not Required 02/07/2024 1 1 Encounter Details Date Type Department Care Team (Late st Contact Info) Description 02/22/2024 13:48 EDT - 02/22/2024 23:59 EDT Hospital Encounter [facility] Interventional Radiology Unit [address] [place], [place] [phone] Uche Wilson PA-C [address] [phone] Johnson Kwon MD [address] [phone] Ascites; Other ascites Discharge Disposition: Home or Self Care Social History Tobacco Use Types Packs/Day Years Used Date Smoking Tobacco: Never Passive Smoke Exposure: Never Smokeless Tobacco: Never Alcohol Use Standard Drinks/Week Comments Not Currently 1 (1 standard drink = 0.6 oz pur e alcohol) [facility] Utilities Answer Date Recorded In the past 12 months has th e [employer], gas, oil, or water [employer] threatened to shut off services in your [...] any time in the past 12 m [facility], were you homeless or living in a senior care (including now)? No 01/10/2024 Interpersonal Safety Answer Date Record ed How often does anyone, inclstefanie yung family, hit, punch or physically hurt you? 01/08/2024 How often does anyone, inclstefanie yung family, insult, scream, curse or threaten [...] onset 12/12/2023 documented as of this encounter Discharge Instructions * Discharge Instructions* Savanah Maya RN - 02/22/2024 14:24 EDT Interventional Radiology Discharge Instructions Date: 02/22/2024 Procedure: Paracentesis (removal of fluid from your abdomen) Provider: Neil Wilson PA-C Aftercare: Activity: Rest today. Do not lift anything over 10 lbs. You may resume your normal activity tomorrow. Be careful on your feet, especially if we have removed a large amount of fluid. Diet: You may resume your usual diet. Do not drink alcohol for 24 hours. Medications: You may resume all of your medications immediately. You may take Tylenol/acetaminophenfor pain unless you have previously been told to avoid this medication. If we have sent a fluid sample to the lab, the results will go to the provider who ordered your paracentesis. The results may take up to 7 days. Dressing/wound care Check the dressing throughout the day. After your procedure, you may have some clear fluid drainingfrom the site, especially if a large amount of fluid was taken out. The drainage will decrease in 1to 2 days. Change the dressing as needed to keep your skin dry. Keep the dressing dry. Remove the dressing tomorrow. You may shower after removing the dressing. Gently wash your wound site with soap and water. Place a new bandage if fluid is still draining, or you may leave the site open to air. Do not take a tub bath, swim, or go in a hot tub for 3 days after your procedure. When to contact the [facility] (call 911 if symptoms are severe): 1. If you have a fever higher than 101 degrees Fahrenheit (38.5C) or shaking chills 2. If you have severe belly pain 3. If you have blood in your stool or urine 4. Bleeding, swelling, or severe drainage from the site (if the drainage causes you to change the dressing more than 5 times in one day). Firmly hold pressure for 10 minutes before calling. 5. If you feel light headed, dizzy, weak, or if you experience blurry vision, confusion, or nausea If you have any questions or concerns, or if you have developed any of the symptoms above, please call: Tuesday-Tuesday 8-4:30: [phone] (option 2) This phone number will connect you to the nurse triage line. Please note, phone calls after 4 pm may not be returned until the next business day. After hours and weekends: For urgent issues, you may speak to a physician sanitation lead by dialing [phone] and ask to speak with the surgeon/president sanitation lead. documented in this encounter Medications at Time of Discharge [...] mouth daily. 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 Procedural consent was completed by TK. All question answered. Patient positioned semi fowlers. A pre ultrasound was completed. Sterile prep of patient's lower abdomen with duraprep disinfecting solution by ADN in the usual sterile fashion in accordance with manufacturers recommendations. Caba moment agreed upon by all staff. Ultrasound guidance used. Lidocaine used as a skin anesthetic. Catheter in place. Total fluid removed today is 1.2 Liters. Fluid is clear and yellow. Catheter removed and band aid applied to puncture site. Discharge instructions reviewed with patient, all questions answered. Brought to the waiting area in stable condition. documented in this encounter Procedure Notes * Uche Wilson PA-C - 02/22/2024 1400 EDT IR Procedure Note Procedure: U/S guided paracentesis Date Performed: 02/22/2024 Radiologist/Music Agent(s): MD Doyle/GRISEL Wilson Sedation/Anesthesia: Local Time Out: A time-out was completed prior to procedure verifying correct patient, procedure, site, positioning, and special equipment if applicable. Estimated Blood Loss: Unless otherwise noted, there was no blood loss, specimens removed, cultures obtained, or drains retained. Specimens: N/A Fluoroscopy Time: See dictated procedure note Contrast Volume: none Complications: none Condition: stable Post Procedure Diagnosis: Ascites Findings: 1.2 L yellow fluid Recommendations: F/U IR PRN Uche Wilson PA-C 02/22/2024 15:44 documented in this encounter Plan of Treatment Upcoming Encounters Date Type Department Care Team (Late st Contact Info) Description 04/02/2024 10:30 EDT Appointment [facility] Interventional Radiology Unit [address] [place] [phone] 04/02/2024 15:15 EDT Office Visit [facility] Surgical Oncology - [facility] [address] [place], [place] [phone] Adolfo Carreno MD [address] [facility], [address] [place] [phone] 04/05/2024 9:30 EDT Telemedicine [facility] [address] [place] [phone] Chichi Woods MD [address] [place] [phone] 04/11/2024 15:00 EDT Telemedicine [facility] Hematology & Oncology - [address] [phone] Alisson Carreon MD [address] [place] [address] [address] [place] [phone] 04/13/2024 13:30 EDT Appointment [facility] Hematology & Oncology - [address] [address] 04/13/2024 14:00 EDT Appointment [facility] Hematology & Oncology - [address] [phone] 04/16/2024 10:00 EST Telemedicine [facility] [address] [place] [address] [phone] Chichi Woods MD [address] [place] [phone] 04/24/2024 9:00 EST Appointment [facility] Radiology CT Outpatient - [address] [phone] 04/24/2024 11:00 EST Appointment [facility] Breast Imaging - [address] [address] 04/27/2024 12:00 EST Appointment [facility] Hematology & Oncology - [address] [phone] 05/02/2024 15:00 EST Telemedicine [facility] Hematology & Oncology - [address] [phone] Alisson Carreon MD [address] [place] [address], [facility], [address] [place] [phone] 05/04/2024 10:15 EST Ancillary Procedure [facility] Cardiology - [address] [place] [address] 05/04/2024 11:30 EST Appointment [facility] Hematology & Oncology [address] [address] 05/04/2024 12:00 EST Appointment [facility] Hematology & Oncology [address] [phone] 06/12/2024 13:00 EST Appointment [facility] Radiology CT - [address] [phone] documented as of this encounter Procedures Procedure Name Priority Date/Time Associated Diagnosis Comments BASIC METABOLIC PANEL (BMP) Routine 02/22/2024 14:53 EDT Other ascites IR PARACENTESIS-RADIOL OGY Routine 02/22/2024 14:50 EDT Ascites documented in this encounter Results * (ABNORMAL) BASIC METABOLIC PANEL (BMP) (02/22/2024 14:53 EDT) Sodium 136 136 - 145 mmol/L 02/22/2024 15:31 EDT [facility] Potassium 3.7 3.5 - 5.0 mmol/L 02/22/2024 15:31 EDT [facility] Chloride 99 96 - 110 mmol/L 02/22/2024 15:31 EDT [facility] CO2 Total 28 22 - 32 mmol/L 02/22/2024 15:31 EDT [facility] Anion Gap 9 5 - 14 mmol/L 02/22/2024 15:31 EDT [facility] Glucose 109(H) 70 - 99 mg/dl 02/22/2024 15:31 EDT [facility] Calcium 9.1 8.5 - 10.5 mg/dL 02/22/2024 15:31 EDT [facility] BUN 15 10 - 26 mg/dL 02/22/2024 15:31 T [facility] Creatinine 0.65 0.52 - 1.04 mg/dL 02/22/2024 15:31 EDT [facility] eGFR 99 >60 mL/min/1.73 m2 02/22/2024 15:31 T [facility] Blood VENOUS BLOOD / Unknown Venipuncture / Unknown 02/22/2024 14:53 EDT 02/22/2024 15:13 EDT Hugo Vergara MD PhD CHEMISTRY & BLO OD GAS ORDERABLES [facility] [address] [place] [address] * IR PARACENTESIS-RADIOLOGY (02/22/2024 14:50 EDT) Anatomical Region Laterality Modality N/A X-Ray Angiograph y 02/22/2024 15:5 7 EDT Impressions 02/22/2024 15:57 EDT Successful, uncomplicated paracentesis using sonographic guidance yielding 1.2 L fluid. ?? LUNA Arguelles, PANitaC Interventional Radiology I have personally reviewed the images and the above interpretation and agree with the findings. [id number] Narrative 02/22/2024 15:57 EDT IR PARACENTESIS-RADIOLOGY ??02/22/2024 [...] procedure well without complication. Resulting Agency Comment [id number] Procedure Note Johnson Kwon MD - 02/22/2024 [...] the above interpretation andagree with the findings. [id number] Hugo Vergara MD PhD IMG IR ORDERABL ES documented in this encounter Visit Diagnoses Diagnosis Other ascites documented in this encounter Care Teams Chemical Analytical Sampler Relationship Specialty Start Date End Date Linda Blancas MD [facility] [address] [place] [address] PCP - General 01/06/11 Adolfo Carreno MD [address] [place] [address], [address] [place] [phone] General Surgery 04/26/19 documented as of this encounter
--- OUTSIDE RECORDS SUMMARY | 2024-03-20 14:32 | XMS_ITS | Encounter Summary ---
Author Organization [facility] Address [address] [place] [address] Care Team Providers Care Physician Obstetrician Name Role Phone Linda Blancas MD Primary Care Provider [phone] Adolfo Carreno MD Unavailable [phone] Reason for Referral * Radiology Services (Routine/Next Available) - Authorization Not Required Specialty Diagnoses / Procedures Referred By Contdayanna t Referred To Contact Diagnoses Malignant neoplasm of right female breast, unspecified estrogen receptor status, unspecified site of breast (HCC-CMS) 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, unspecified laterality, 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HCC-CMS) Primary malignant neoplasm of breast with metastasis (HCC-CMS) Procedures CT ABDOMEN PELVIS W CONTRAST Alisson Carreon MD [address] [facility], [facility] [address] [place] [address] [facility] Referral ID Status Reason Start Date Expiration Date Visits Requested Visits Authorized [id number] Authorization Not Required 03/13/2024 1 1 * Radiology Services (Routine/Next Available) - Authorization Not Required Specialty Diagnoses / Procedures Referred By Doug hearn Referred To Contact Diagnoses Malignant neoplasm of right female breast, unspecified estrogen receptor status, unspecified site of breast (HCC-CMS) 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, unspecified laterality, 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HCC-CMS) Procedures CT CHEST W CONTRAST Alisson Carreon MD [address] [place] [phone] [facility] Referral ID Status Reason Start Date Expiration Date Visits Requested Visits Authorized [id number] Authorization Not Required 03/13/2024 1 1 * Radiology Services (Routine/Next Available) - Authorization Not Required Specialty Diagnoses / Procedures Referred By Contac t Referred To Contact Diagnoses Malignant neoplasm of right female breast, unspecified estrogen receptor status, unspecified site of breast (HCC-CMS) 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, unspecified laterality, 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HCC-CMS) Primary malignant neoplasm of breast with metastasis (HCC-CMS) Procedures CT CHEST WO CONTRAST Alisson Carreon MD [address] [place] [phone] [facility] Referral ID Status Reason Start Date Expiration Date Visits Requested Visits Authorized [id number] Authorization Not Required 03/13/2024 1 1 Reason for Visit * Reason Comments Follow-up Encounter Details Date Type Department Care Team (Late st Contact Info) Description 03/13/2024 13:00 EDT Office Visit [facility] Hematology [place] [address] Alisson Carreon MD [address] [place] [phone] Malignant neoplasm of right female breast, unspecified estrogen receptor status, unspecified site of breast (HCC-CMS) (Primary Dx); 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, unspecified laterality, 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HCC-CMS); Primary malignant neoplasm of breast with metastasis (HCC-CMS); Acute hypoxic respiratory failure ([facility]) Social History Tobacco Use Types Packs/Day Years Used Date Smoking Tobacco: Never Passive Smoke Exposure: Never Smokeless Tobacco: Never Alcohol Use Standard Drinks/Week Comments Not Currently 1 (1 standard drink = 0.6 oz pur e alcohol) [facility] Utilities Answer Date Recorded In the [...] were you homeless or living in a chcf (including now)? No 01/10/2024 Interpersonal Safety Answer [...] Sign Reading Time Taken Comments Blood Pressure 140/68 03/13/2024 1252 EDT Pulse 98 03/13/2024 1252 EDT Temperature 36.4 ??C (97.5 ??F) 03/13/2024 1252 EDT Respiratory Rate 16 03/13/2024 1252 EDT Oxygen Saturation 99% 03/13/2024 1252 EDT Inhaled Oxygen Concentration - - Weight 45.9 kg (101 lb 3.2 oz) 03/13/2024 1252 E DT pt aware Height - - Body Mass Index 19.13 01/31/2024 0943 EDT documented in this encounter [...] onset 12/12/2023 documented as of this encounter Ordered Prescriptions Prescription Sig Dispensed Refills Start Date End Da te apixaban (ELIQUIS) 2.5 mg tabletIndications:Malignan t neoplasm of right female breast, unspecified estrogen receptor status, unspecified site of breast (HCC-CMS),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, unspecified laterality, 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HCC-CMS),Primary malignant neoplasm of breast with metastasis (HCC-CMS),Acute hypoxic respiratory failure (HCC-CMS) Take 1 Tablet by mouth 2 times daily. 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 30 Tablet 11 03/13/2024 documented in this encounter Progress Notes * Alisson Carreon MD - 03/13/2024 1300 EDT Follow Up Breast Oncology Office Visit 03/13/24 Assessment & Plan 63 y.o. 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 Starting furosemide 20 mg daily, spironolactone 50mg->100mg daily, track weight. 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 Lung biopsy 06/22/23 - adenocarcinoma consistent with metastatic breast cancer; ER+ >90%, IN < 5%; HER2 2+ equivocal; [place] FISH testing negative 11/29/23 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%) -> ND (01/2024) Genetics: NMN VUS per notes 11/09/23 CTA: acute PE's, interval enlarged LN's (IM, left axillary, subpec) 12/12/23 (c/w 11/09/23) CT AP: extensive unchanged liver mets, moderate to large ascites, PE's, bone scan 11/25/23: new focus of left ninth rib Enhertu #3 prednisone 10mg ->no need for atovaqune pcp ppx per pulm will change zometa to denosumab on 12/20/23 because of potential new met/small rib fracture on bone scan 11/202312/20/23 Enheru #4 + denosumab #1, C -[address] chest every 9-12 weeks (r/o pneumonitis side effect) Repeat CT 03/13->ground glass improved, PFTs much improved, OK to resume enhertu per pulmonary with increased surveillance, will obtain CT chest every 6 weeks Continue diuretics with hepatology, ascitic fluid from portal HTN->today was first time did not require paracentesis after 3 weeks! 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 Ultrasound performed in [place] identifying an irregular heterogeneous soft tissue mass measuring 1.2 x 1.2 x 1.5 cm. b. 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 HER-2 1+ by IHC. ANNE MARIE revealed [...] breast tumor 07/07/17 and placement of tissue peritoneal dialysis registered nurse. 1.9 cm tumor at time ofsurgery, well [...] consistent with metastatic breast cancer; ER+ >90%, IN < 5%; HER2 2+ equivocal; [place] FISH testing negative M. Elacestrant initiated early [...] CT chest findings concerning for pneumonitis from Enhertu that can belife threatening and since she [...] On 2L-3L 02 intermittent PFTs rescheduled to 03/0802/21/24: Sunshine f/u with pt and Feels OK, more [...] results from 01/2024 non detected tumor fragments Subjective Looking very well today, PFTs much improved per pulmonary Cramps improved once per week on flexeril 3 times per week, she has 5 and 10mg tablets Anniversary and [place] trip for wedding planned My skin Is super sensitive, back and blue [place] on arms, skin on upper chest and neck very sensitive Objective Vitals: 03/13/24 1252 BP: 140/68 Pulse: 98 Resp: 16 Temp: 36.4 ??C (97.5 ??F) TempSrc: Skin SpO2: 99% Weight: 45.9 kg (101 lb 3.2 oz) Wt Readings from Last 3 Encounters: 03/13/24 45.9 kg (101 lb 3.2 oz) 02/07/24 52.2 kg (115 lb) 01/31/24 49.4 kg (108 lb 14.4 oz) Physical Exam: appears well, alert and oriented x 3, no cough, no respiratory distress, clear and fluent speech, no scleral icterus, no jaundice, no visible rashes, no abdominal tenderness, no edema. Labs and Imaging CT CHEST W CONTRAST Result Date: 03/13/2024 . 1. Further improvement in multifocal groundglass opacities. Minimal residual faint groundglass opacities persist in the left lung. 2. Stable appearance of the biopsy-proven malignancy in the left lung and multiple bilateral pulmonary nodules, measuring less than 2 mm. I have personally reviewed the images and the above interpretation and agree with the findings. [id number] IR PARACENTESIS-RADIOLOGY Result Date: 02/22/2024 Successful, uncomplicated paracentesis using sonographic guidance yielding 1.2 L fluid. LUNA Arguelles, PA-C Interventional Radiology I have personally reviewed the images and the above interpretation and agree with the findings. [id number] documented in this encounter Plan of Treatment Upcoming Encounters Date Type Department Care Team (Late st Contact Info) Description 04/02/2024 10:30 EDT Appointment [facility] Interventional Radiology Unit [address], [place] [phone] 04/02/2024 15:15 EDT Office Visit [facility] Surgical Oncology [address] [phone] Adolfo Carreno MD [address] [place] [address] [address] [place] [phone] 04/05/2024 9:30 EDT Telemedicine [facility] - [facility] Palliative Care Services [address], [place] [phone] Chichi Woods MD [address] [place] [address], [address] [phone] 04/11/2024 15:00 EDT Telemedicine [facility] Hematology & Oncology [address] [phone] Alisson Carreon MD [address] [place] [address] [address] [place] [phone] 04/13/2024 13:30 EDT Appointment [facility] Hematology & Oncology [address] [id number] 04/13/2024 14:00 EDT Appointment [facility] Hematology & Oncology - [address] [phone] 04/16/2024 10:00 EST Telemedicine [facility] - [facility] Palliative Care Services [address] [place] [address] [phone] Chichi Woods MD 111 [facility], [address] [phone] 04/24/2024 9:00 EST Appointment [facility] Radiology CT Outpatient - [address] [id number] 04/24/2024 11:00 EST Appointment [facility] Breast Imaging - [address] [id number] 04/27/2024 12:00 EST Appointment [facility] Hematology & Oncology - [address] [id number] 05/02/2024 15:00 EST Telemedicine [facility] Hematology & Oncology - [address] [phone] Alisson Carreon MD [address] [place] [address], [facility] [address] [place] [phone] 05/04/2024 10:15 EST Ancillary Procedure [facility] Cardiology [place] [address] [place] [address] 05/04/2024 11:30 EST Appointment [facility] Hematology & Oncology - [address] [id number] 05/04/2024 12:00 EST Appointment [facility] Hematology & Oncology - [address] [phone] 06/12/2024 13:00 EST Appointment [facility] Radiology CT - [address] [phone] Scheduled Orders Name Type Priority Associated Diagnoses Orde r Schedule CT CHEST WO CONTRAST Imaging Routine Malignant neoplasm of right female breast, unspecified estrogen receptor status, unspecified site of breast (HCC-CMS) 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, unspecified laterality, 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HCC-CMS) Primary malignant neoplasm of breast with metastasis (HCC-CMS) Expected: 04/24/2025, Expires: 09/11/2025 CT CHEST W CONTRAST Imaging Routine Malignant neoplasm of right female breast, unspecified estrogen receptor status, unspecified site of breast (HCC-CMS) 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, unspecified laterality, 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HCC-CMS) Expected: 06/18/2024 (Approximate), Expires: 03/13/2025 CT ABDOMEN PELVIS W CONTRAST Imaging Routine Malignant neoplasm of right female breast, unspecified estrogen receptor status, unspecified site of breast (HCC-CMS) 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, unspecified laterality, 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HCC-CMS) Primary malignant neoplasm of breast with metastasis (HCC-CMS) Expected: 06/18/2024 (Approximate), Expires: 03/13/2025 documented as of this encounter Visit Diagnoses Diagnosis Malignant neoplasm of right female breast, unspecified estrogen receptor status, unspecified site of breast (HCC-CMS)- Primary 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, unspecified laterality, 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HCC-CMS) Primary malignant neoplasm of breast with metastasis (HCC-CMS) Acute hypoxic respiratory failure (HCC-CMS) documented in this encounter Discontinued Medications Medication Sig Discontinue Reason Start Date End Da te apixaban (ELIQUIS) 5 mg tabletIndications:Primar y malignant neoplasm of breast with metastasis (HCC-CMS) Take 1 Tablet by mouth 2 times daily. 12/07/2023 03/13/2024 documented as of this encounter Care Teams Physician Obstetrician Relationship Specialty Start Date End Date Linda Blancas MD [address] [place] [address] [address] [place], [place] [address] PCP - General 01/06/11 Adolfo Carreno MD [address] [place] [address], [address] [place] [address] General Surgery 04/26/19 documented as of this encounter
--- OUTSIDE RECORDS SUMMARY | 2024-03-20 14:32 | XMS_ITS | Encounter Summary ---
Author Organization [facility] Address [address] [place] [address] Care Team Providers Care Home Visit Field Care Manager Name Role Phone Linda Blancas MD Primary Care Provider [phone] Adolfo Carreno MD Unavailable [phone] Reason for Visit * Reason Onset Date Comments Medication Management 02/16/2024 Encounter Details Date Type Department Care Team (Late st Contact Info) Description 02/16/2024 Telephone [facility] Infectious Disease - [address] [phone] Errol Ferrell MD [address] [place] [address], [address] [place] [phone] Medication Management Social History Tobacco Use Types Packs/Day Years Used Date Smoking Tobacco: Never Passive Smoke Exposure: Never Smokeless Tobacco: Never Alcohol Use Standard Drinks/Week Comments Not Currently 1 (1 standard drink = 0.6 oz pur e alcohol) [facility] Utilities Answer Date Recorded In the past 12 months has [employer], gas, oil, or water company threatened [...] any time in the past 12 [facility], were you homeless or living [...] Dispensed Refills Start Date End Da te atovaquone (MEPRON) 750 mg/5 mL suspension Take 10 mL by mouth every 24 hours. 840 mL 3 02/16/2024 documented in this encounter Miscellaneous Notes * Telephone Encounter - Alia Rios, RN - 02/16/2024 1414 EDT Rx for atovaquone sent electronically to [facility] pharmacy [place], [place] per patient request. Patient notified. ALIA RIOS RN * Telephone Encounter - Estephanie Kwan - 02/16/2024 130 EDT Patient states that the order for atovaquone went to the [facility] in [place]. She would like this to be switched to the [facility] in [place]. She would edison a call back to confirm at [phone]. documented in this encounter Plan of Treatment Upcoming Encounters Date Type Department Care Team (Late st Contact Info) Description 04/02/2024 10:30 EDT Appointment [facility] Interventional Radiology Unit [address] [place] [phone] 04/02/2024 15:15 EDT Office Visit [facility] Surgical Oncology - [address] [phone] Adolfo Carreno MD [facility], [address] [place] [phone] 04/05/2024 9:[address] [facility] - [facility] Palliative Care Services [address] [place] [address] [phone] Chichi Woods MD 111 [facility], [address] [phone] 04/11/2024 15:00 EDT Telemedicine [facility] Hematology & Oncology - [address] [phone] Alisson Carreon MD [address] [place] [address] [address] [place] [phone] 04/13/2024 13:30 EDT Appointment [facility] Hematology & Oncology - [address] [phone] 04/13/2024 14:00 EDT Appointment [facility] Hematology & Oncology [address] [id number] 04/16/2024 10:[address] [facility] - [facility] Palliative Care Services [address] [place] [address] [phone] Chichi Woods MD [address] [place] [phone] 04/24/2024 9:00 EST Appointment [facility] Radiology CT Outpatient - [address] [phone] 04/24/2024 11:00 EST Appointment [facility] Breast Imaging - [address] [phone] 04/27/2024 12:00 EST Appointment [facility] Hematology & Oncology - [address] [phone] 05/02/2024 15:00 EST Telemedicine [facility] Hematology & Oncology - [address] [phone] Alisson Carreon MD [address] [place] [address], [facility] [address] [place] [phone] 05/04/2024 10:15 EST Ancillary Procedure [facility] Cardiology - [address] [place] [address] 05/04/2024 11:30 EST Appointment [facility] Hematology & Oncology [address] [address] 05/04/2024 12:00 EST Appointment [facility] Hematology & Oncology [address] [address] 06/12/2024 13:00 EST Appointment [facility] Radiology CT - [address] [phone] documented as of this encounter Visit Diagnoses Not on filedocumented in this encounter Discontinued Medications Medication Sig Discontinue Reason Start Date End Da te atovaquone (MEPRON) 750 mg/5 mL suspension Take 10 mL by mouth every 24 hours. Reorder 02/15/2024 02/16/2024 documented as of this encounter Care Teams Home Visit Field Care Manager Relationship Specialty Start Date End Date Linda Blancas MD [facility] [address] [place] [address] PCP - General 01/06/11 Adolfo Carreno MD [address] [place] [address], [address] [place] [phone] General Surgery 04/26/19 documented as of this encounter
--- OUTSIDE RECORDS SUMMARY | 2024-03-20 14:32 | XMS_ITS | Encounter Summary ---
Author Organization [facility] Address [address] [place] [address] Care Team Providers Care Credit Portfolio Advisor Name Role Phone Linda Blancas MD Primary Care Provider [phone] Adolfo Carreno MD Unavailable [phone] Reason for Visit * Reason Onset Date Comments Results 03/02/2024 Encounter Details Date Type Department Care Team (Late st Contact Info) Description 03/02/2024 Telephone [facility] Gastroenterology - [facility] [address], [place] [address] Yovana Bowman, SHELLEY Results Social History Tobacco Use Types Packs/Day Years Used Date Smoking Tobacco: Never Passive Smoke Exposure: Never Smokeless Tobacco: Never Alcohol Use Standard Drinks/Week Comments Not Currently 1 (1 standard drink = 0.6 oz pur e alcohol) [facility] Utilities Answer Date Recorded In the past 12 months has e [employer], gas, oil, or water [employer] threatened to shut off services in your [...] any time in the past 12 m ont, were you homeless or living in a fdc (including now)? No 01/10/2024 Interpersonal Safety Answer Date Record ed How often does anyone, amnuela yung family, hit, punch or physically hurt [...] Telephone Encounter - Yovana Bowman RN - 03/02/2024 1356 EDT Date Weight (lb) Spironolactone Furosemide Na [...] 02/27/24 101.8 200 mg 40 mg 03/01/24 133 3.8 0.94 69 See [employer] message. documented in this encounter Plan of Treatment Upcoming Encounters Date Type Department Care Team (Late st Contact Info) Description 04/02/2024 10:30 EDT Appointment [facility] Interventional Radiology Unit [address] [place] [address] [phone] 04/02/2024 15:15 EDT Office Visit [facility] Surgical Oncology - [address] [phone] Adolfo Carreno MD [address] [place] [address], [facility] [address] [place] [phone] 04/05/2024 9:30 EDT Telemedicine [facility] - [facility] Palliative Care Services [address], [place] [phone] Chichi Woods MD [address] [place] [address], [address] [phone] 04/11/2024 15:00 EDT Telemedicine [facility] Hematology & Oncology - [address] [phone] Alisson Carreon MD [address] [place] [address], [facility] [address] [place] [phone] 04/13/2024 13:30 EDT Appointment [facility] Hematology & Oncology - [address] [phone] 04/13/2024 14:00 EDT Appointment [facility] Hematology & Oncology - [address] [address] 04/16/2024 10:00 EST Telemedicine [facility] - [facility] Palliative Care Services [address] [place] [address] [phone] Chichi Woods MD [address] [place] [phone] 04/24/2024 9:00 EST Appointment [facility] Radiology CT Outpatient - [address] [id number] 04/24/2024 11:00 EST Appointment [facility] Breast Imaging - [facility] [address] [phone] 04/27/2024 12:00 EST Appointment [facility] Hematology & Oncology - [address] [phone] 05/02/2024 15:00 EST Telemedicine [facility] Hematology & Oncology [address] [phone] Alisson Carreon MD [address] [place] [address], Level [address] [place] [phone] 05/04/2024 10:15 EST Ancillary Procedure [facility] Cardiology [place] [address] [place] [address] 05/04/2024 11:30 EST Appointment [facility] Hematology & Oncology [address] [phone] 05/04/2024 12:00 EST Appointment [facility] Hematology & Oncology - [address] [address] 06/12/2024 13:00 [facility] Radiology CT - [address] [address] documented as of this encounter Visit Diagnoses Not on filedocumented in this encounter Care Teams Credit Portfolio Advisor Relationship Specialty Start Date End Date Linda Blancas MD [facility] [address] [place] [address] PCP - General 01/06/11 Adolfo Carreno MD [address] [place] [address], [facility], Level [address] [place] [phone] General Surgery 04/26/19 documented as of this encounter
--- OUTSIDE RECORDS SUMMARY | 2024-03-20 14:32 | XMS_ITS | Encounter Summary ---
Author Organization [facility] Address [address] [place] [address] Care Team Providers Care Bottle And Glass Inspector Name Role Phone Linda Blancas MD Primary Care Provider [phone] Adolfo Carreno MD Unavailable [phone] Reason for Visit * Reason Comments Palliative Care Symptom Management * Consult (Routine/Next Available) - Receiving Office to Obtain Authorization Specialty Diagnoses / Procedures Referred By [facility] Referred To Contact Diagnoses Malignant neoplasm of female breast, unspecified estrogen receptor status, unspecified laterality, unspecified site of breast (HCC-CMS) Primary malignant neoplasm of breast with metastasis (HCC-CMS) Encounter for palliative care Jackie Juan MD [address] [place] [address] [facility] Palliative Care [address] [place] [address] Referral ID Status Reason Start Date Expiration Date Visits Requested Visits Authorized [id number] Receiving Office to Obtain Authorization Specialty Services Required 01/12/2024 1 1 Encounter Details Date Type Department Care Team (Late st Contact Info) Description 03/08/2024 9:30 EDT Office Visit [facility] Palliative Care Services [address] [place] [address] [phone] Chichi Woods MD 111 [facility], [address] [phone] Palliative care by specialist (Primary Dx); Malignant neoplasm of right female breast, unspecified estrogen receptor status, unspecified site of breast ([facility]) Social History Tobacco Use Types Packs/Day Years Used Date Smoking Tobacco: Never Passive Smoke Exposure: Never Smokeless Tobacco: Never Alcohol Use Standard Drinks/Week Comments Not Currently 1 (1 standard drink = 0.6 oz pur e alcohol) [facility] Utilities Answer Date Recorded In the [...] any time in the past 12 m [facility], were you homeless or living in a [...] as of this encounter Progress Notes * Chichi Woods MD - 03/08/2024 0930 EDT Please see full consult note by Dr.Kaarin Forbes, fellow in palliative care. Attending attestation: I was present for the majority of the visit and agree with Dr. Forbes's findings and plan of care as documented. Chichi Woods MD documented in this encounter Consult Notes * Cara Forbes MD - 03/08/2024 0930 EDT Palliative Care Consultation Referring Clinician/Oncologist: Dr. Carreon Type of Visit: New Patient Assessment Ms. Sendy Bernstein is a 63 yo F with a PMHx significant for breast cancer metastatic to the skin, lungs, and mediastinal lymph nodes (2016), progression to liver mets since 11/2021 on Enhertu s/p4 cycles, on hold since 01/03 2/2 PJP PNA (treated with atovaquone), c/b recurrent acites 2/2 portalhypertension managed with paracentesis (last 02/22/24), now on 20 mg furosemide and spironolactone, UE thrombus and PE on Eliquis, and Covid (02/15/24). Palliative Care is consulted for symptom management and goals of care discussions. Recommendations #Muscle Cramps: Per patient, occur in legs/arms bilaterally (legs/thighs worst and longest-lasting), 10/10 at worst, began earlier in the summer after the hospital admission for PJP PNA. Current OP regimen is flexeril 5-10 mg at bedtime PRN. -- Would recommend scheduling flexeril 5 mg PO TID -- Would also recommend potentially starting PO OTC magnesium supplementation to help with muscle cramping. #Weight Loss/Decreased Appetite: Per patient and , Senyd has always been a healthy eater (primarily salads, salmon, et al), but she has lost 28 lbs in the last year (130 lbs-->102). She reports chronic lack of appetite but will eat when presented with certain foods (smoothies, shakes), nonausea issues. Has tried ensure supplementation but does not like the taste; she is open to trying a new medication. -- Would recommend starting mirtazipine 7.5 mg PO at bedtime for appetite stimulation. -- Would continue to encourage patient's to continue making tempting foods with protein powder incorporated into them. #Falls in setting of possible frhp-ctqa-goabjmuovsd: Patient's reports that she fell 1 month ago, having slid down a flight of stairs, which led to multiple skin tears and bruising (both still healing) but no head strike. Both patient and are concerned that the Eliquis dosing may betoo high iso her recent weight loss, even as though they realize that she does need anticoagulationgiven her hypercoagulable state 2/2 cancer and hx of PE/UE DVT. -- Would strongly consider decreasing dose of Eliquis to 2.5 mg PO BID given patient's reduced weight. #Constipation: Patient reports that she does have BM regularly but occasionally goes a few days without one; both she and her are concerned about regularity given hx of a SBO. Has been using psyllium, which fills her up (thereby compounding the appetite/weight loss issue), also miralax and senna PRN. -- Would recommend scheduling Miralax 17 g PO every day and senna 8.6 mg (2 tabs) PO at bedtime #Tremors: Patient and report that Sendy has had a bilateral UE tremor that surfaced s/p thehospital admission in December. Continues all day, worst towards the evening (reportedly so bad that she can't write her name). No family hx of tremor, no evidence of cerebellar/spinal mets on CT. -- Would recommend watchful waiting to see if resolves with time. If no resolution, could consider starting low-dose propranolol. # Follow up: Please schedule a follow up visit for 4-6 weeks on a day when Dr. Forbes (M fellow) is in clinic. Patient will follow up with oncology for any urgent or new and evolving symptoms as well as necessary prescriptions. __ Present for Visit: Patient, Nitish Nesbitt, Dr. Woods (PC Attending), and Dr Forbes (PC Fellow) Brief Narrative of Visit: After introducing ourselves, the PC Team explained what PC actually entails, as Nitish had shared that he was chickenshit about PC because he felt it meant the end of life. Sendy explained that she was at peace with getting Palliative Care involved and has been happy to come to [facility] for all her health care issues. 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 [place] moved [place] 13 years ago when she Nitish, a truck packer, whom she initially met at a [employer] event. As Nitish put it, it was like 'Beauty and the Beast,' when they met, describing Sendy as a beautiful, bubbly, vivacious woman with whom he was smitten at first sight. They had an eventful courtship, culminating in an incredibly loving marriage, filled with la ughter and dancing. Together, they watch Dancing with the Stars, and enjoy critiquing the techniques they see, and Sendy also enjoys gardening. Symptom Assessment: Pain: Not currently an issue at this time. Nausea/Vomiting/Bowels: Nausea is well-controlled with ondansetron, only flares s/p chemo. Constipation is mild, recs noted above for improving BM frequency. Dyspnea: Resolving. Was dyspneic s/p PNA admission in 01/03, discharged on 10L NC. Now has weaned down to 3L NC only with exertion (eg gardening). Sleep: Patient reports no trouble at this time. Appetite: Decreased, with concomitant 28 lb weight loss in the last year. Mood/Cognition: No issues at this time. Energy: Decreased but still very engaged and lively. Serious Illness Conversation: Sendy does want to be kept informed about her illness and prefers to have information directly. She has a good understanding of her illness, and she appeared cheered to hear that patients receiving Palliative Care also frequently do so while receiving cancer-directed treatment, which she wishes to pursue. During this visit, she and Nitish both mentioned that they had been asked to complete an advanced directive, but we were not able to complete that, as other topicstook precedence (Sendy had to go to a Director Financial Planning appointment, and Nitish stayed behind with me). We will be completing the advance directive at the next appointment. After Sendy had left, I asked Nitish how he is coping, and he said terribly. He feels tremendous guilt about how much he worries about Sendy and how scared he is about losing her at one point, yet he also admitted that he feels selfish for having those feelings because I'm not the one who has cancer. I validated his feelings and explained that it is very normal and appropriate to feel worried w hen faced with the prospect of losing someone he clearly loves dearly, not selfish. He has a fellowmechanic friend with whom he can speak about these issues, but he would really like to speak to partners of other patients living with cancer, though he hasn't been able to locate a group that meets in person (he doesn't want to have to share his fears/worries with Sendy b/c he doesn't want to burden her, and zoom would not work in their house). He is deeply concerned that her spirit is being affected and my bubbly, vivacious girl is now focusing on things she can't do instead of the the things she still can; he related that he often wants to dance with her but refrains b/c he's afraid it wi ll remind her of what she used to be able to do and can't now. When I asked if he'd shared some of these concerns with Sendy, he replied that he hasn't, as he hasn't even been able to say the word cancer until recently, much less consider losing her (he was quite tearful at that point). I told Nitish that our visits should be considered a safe space, and if he would like, Palliative Care would be very happy to help facilitate a conversation with Sendy and him about the serious illness issues they are facing, so that instead of working/loving at cross purposes, they could jump into the issue together. He is willing to think about that. I Objective Gen: Engaging, cachectic woman sitting comfortably in chair, NAD. Neuro: PERRLA Pulm: RR appears at normal levels. Psych: Appears to be at baseline. Cara Forbes MD Palliative Care Fellow documented in this encounter Plan of Treatment Upcoming Encounters Date Type Department Care Team (Late st Contact Info) Description 04/02/2024 10:30 EDT Appointment [facility] Interventional Radiology Unit [address] [place] [address] [phone] 04/02/2024 15:15 EDT Office Visit [facility] Surgical Oncology - [facility] [address], [place] [address] Adolfo Carreno MD 111 [facility], [facility], Level [address] [place] [phone] 04/05/2024 9:[address] [facility] - [facility] Palliative Care Services [address] [place] [address] [phone] Chichi Woods MD [address] [place] [address] [address] [place] [phone] 04/11/2024 15:00 EDT Telemedicine [facility] Hematology & Oncology - [address] [phone] Alisson Carreon MD [address] [place] [address] 2 [place] [phone] 04/13/2024 13:30 EDT Appointment [facility] Hematology & Oncology [address] [phone] 04/13/2024 14:00 EDT Appointment [facility] Hematology & Oncology [address] [phone] 04/16/2024 10:[address] [facility] - [facility] Palliative Care Services [address] [place] [address] 579661 Chichi Woods MD [address] [place] [phone] 04/24/2024 9:00 EST Appointment [facility] Radiology CT Outpatient - [address] 512341 04/24/2024 11:00 EST Appointment [facility] Breast Imaging - [address] 216241 04/27/2024 12:00 EST Appointment [facility] Hematology & Oncology - [address] [phone] 05/02/2024 15:00 EST Telemedicine [facility] Hematology & Oncology - [address] [phone] Alisson Carreon MD [address] [place] [address] [facility] 2 [place] [phone] 05/04/2024 10:15 EST Ancillary Procedure [facility] Cardiology - [address] [place] [address] 05/04/2024 11:30 EST Appointment [facility] Hematology & Oncology - [address] [phone] 05/04/2024 12:00 EST Appointment [facility] Hematology & Oncology - [address] 743191 06/12/2024 13:00 EST Appointment [facility] Radiology CT - [address] [phone] documented as of this encounter Visit Diagnoses Diagnosis Palliative care by specialist- Primary Malignant neoplasm of right female breast, unspecified estrogen receptor status, unspecified site of breast ([facility]) documented in this encounter Care Teams Bottle And Glass Inspector Relationship Specialty Start Date End Date Linda Blancas MD [facility] [address] [place] [address] PCP - General 01/06/11 Adolfo Carreno MD [address] [place] [address], [facility] 2 [place] [phone] General Surgery 04/26/19 documented as of this encounter
--- OUTSIDE RECORDS SUMMARY | 2024-03-20 14:32 | XMS_ITS | Encounter Summary ---
Author Organization [facility] Address [address] [place] [address] Care Team Providers Care Gasoline Finisher Name Role Phone Linda Blancas MD Primary Care Provider [phone] Adolfo Carreno MD Unavailable [phone] Reason for Referral * Test (Routine/Next Available) - Authorization Not Required Specialty Diagnoses / Procedures Referred By Contdayanna t Referred To Contact Diagnoses Acute hypoxic respiratory failure ([facility]) Procedures PULMONARY FUNCTION TESTING Pavan Bianchi MD [address] [phone] Referral ID Status Reason Start Date Expiration Date Visits Requested Visits Authorized [id number] Authorization Not Required 03/13/2024 1 1 Reason for Visit * Reason Onset Date Comments Patient Outreach 03/12/2024 Encounter Details Date Type Department Care Team (Late st Contact Info) Description 03/12/2024 Telephone [facility] [place] Pulmonology & Critical Care - [address] [address] Jackie Leach DO [address] [phone] Patient Outreach Social History Tobacco Use Types Packs/Day Years Used Date Smoking Tobacco: Never Passive Smoke Exposure: Never Smokeless Tobacco: Never Alcohol Use Standard Drinks/Week Comments Not Currently 1 (1 standard drink = 0.6 oz pur e alcohol) [facility] Utilities Answer Date Recorded In the [...] any time in the past 12 m [facility], were you homeless or living in [...] Telephone Encounter - Julia Salazar RN - 03/13/2024 1207 EDT Six minute walk test ordered, sent to [facility] to schedule. * Telephone Encounter - Julia Salazar RN - 03/13/2024 0911 EDT Pt and her came into the office in between other appointments in the hospital. Pt was inquiring about her oxygen needs and last week's PFT test that has not been signed yet. She mentioned sheis trying to wean down on oxygen and thought the PFT would give information to allow that. I advised that PFT would not help us determine how much O2 she needs and that would be determined by a 6 minute walk test. They would like to have this so they can determine how much O2 she currently needs. Isent a message to Dr Bianchi and Dr Quintanilla for them about the 6mwt. Pt and her are flying out to [place] on 04/04 and they would like a POC. I advised that [employer] and [email or web address] determine when she qualifies for a POC but that I could try to send them an order for it. They would like us to do that so I sent an order to [facility] for a POC, but warned them they may or may not qualify. I also told them to call [employer] where they can rent a POC for their trip. They would like to start with trying to get one from [facility] if possible, but they havethe phone number for [employer] if they need it. * Telephone Encounter - KendanyelAzul nuñez - 03/12/2024 1509 EDT Patient calling to speak with the nurse regarding oxygen and traveling by air. States she will be taking a trip at the end of the month. Please call back to discuss. documented in this encounter Plan of Treatment Upcoming Encounters Date Type Department Care Team (Late st Contact Info) Description 04/02/2024 10:30 EDT Appointment [facility] [place] Interventional Radiology Unit [address] [place] [address] [phone] 04/02/2024 15:15 EDT Office Visit [facility] [place] Surgical Oncology - [address] [phone] Adolfo Carreno MD [address] [place] [address], [facility] 2 [place] [phone] 04/05/2024 9:30 EDT Telemedicine [facility] - [facility] [place] Palliative Care Services [address] [place], [place] [address] Chichi Woods MD [address] [place] [phone] 04/11/2024 15:00 EDT Telemedicine [facility] Hematology & Oncology - [address] [phone] Alisson Carreon MD [address] [place] [address], [facility] 2 [place] [phone] 04/13/2024 13:30 EDT Appointment [facility] Hematology & Oncology - [address] [phone] 04/13/2024 14:00 EDT Appointment [facility] Hematology & Oncology [address] [address] 04/16/2024 10:00 EST Telemedicine [facility] - [facility] [place] Palliative Care Services [address] [place] [address] [phone] Chichi Woods MD [address] [place] [address], [address] [phone] 04/24/2024 9:00 EST Appointment [facility] Radiology CT Outpatient - [address] [phone] 04/24/2024 11:00 EST Appointment [facility] [place] Breast Imaging - [facility] [address] [place] [address] [place], [place] 885521 04/27/2024 12:00 EST Appointment [facility] Hematology & Oncology [address] [phone] 05/02/2024 15:00 EST Telemedicine [facility] Hematology & Oncology [address] [phone] Alisson Carreon MD [address] [place] [address], Level [address] [place] [phone] 05/04/2024 10:15 EST Ancillary Procedure [facility] [place] Cardiology [place] [place] [address] 05/04/2024 11:30 EST Appointment [facility] Hematology & Oncology [address] [phone] 05/04/2024 12:00 EST Appointment [facility] Hematology & Oncology [address] [phone] 06/12/2024 13:[address] [facility] Rad[facility] CT - [facility] [address] [place], [place] 8[address] Scheduled Orders Name Type Priority Associated Diagnoses Orde r Schedule PULMONARY FUNCTION TESTING PFT Routine Acute hypoxic respiratory failure (HCC-CMS) 1 Occurrences starting 03/13/2024 until 09/11/2025 documented as of this encounter Visit Diagnoses Diagnosis Acute hypoxic respiratory failure (HCC-CMS)- Primary documented in this encounter Care Teams Gasoline Finisher Relationship Specialty Start Date End Date Linda Blancas MD [facility] [address] [place] [address] PCP - General 01/06/11 Adolfo Carreno MD 111 [facility], [facility], Level 2 [place] [phone] General Surgery 04/26/19 documented as of this encounter
--- OUTSIDE RECORDS SUMMARY | 2024-03-20 14:32 | XMS_ITS | Encounter Summary ---
Author Organization [facility] Address [address] [place] [address] Care Team Providers Care Marketing Instructor Name Role Phone Linda Blancas MD Primary Care Provider [phone] Adolfo Carreno MD Unavailable [phone] Encounter Details Date Type Department Care Team (Late st Contact Info) Description 02/16/2024 Orders Only [facility] Cancer [facility] Hematology & Oncology - [address] [phone] Alisson Carreon MD 111 [facility], Level 2 [place] [address] Social History Tobacco Use Types Packs/Day Years Used Date Smoking Tobacco: Never Passive Smoke Exposure: Never Smokeless Tobacco: Never Alcohol Use Standard Drinks/Week Comments Not Currently 1 (1 standard drink = 0.6 oz pur e alcohol) [facility] Utilities Answer Date Recorded In the past 12 months has [employer] electric, gas, oil, or water company threatened [...] any time in the past 12 m [facility], were you homeless or living in a group home (including now)? No 01/10/2024 Interpersonal Safety [...] Description 04/02/2024 10:30 EDT Appointment [facility] Interventional Radiology Unit [address] [place] [address] [phone] 04/02/2024 15:15 EDT Office Visit [facility] Surgical Oncology - [address] [phone] Adolfo Carreno MD [address] [place] [address] [phone] 04/05/2024 9:30 EDT Telemedicine [facility] Palliative Care Services [address] [place] [address] [phone] Chichi Woods MD [address] [place] [address] [phone] 04/11/2024 15:00 EDT Telemedicine [facility] Hematology & Oncology [address] 468231 Alisson Carreon MD [address] [place] [address] [phone] 04/13/2024 13:30 EDT Appointment [facility] Hematology & Oncology [address] [phone] 04/13/2024 14:00 EDT Appointment [facility] Hematology & Oncology [address] [phone] 04/16/2024 10:00 EST Telemedicine [facility] Palliative Care Services [address] [place] [address] [phone] Chichi Woods MD [address] [place] [address] [phone] 04/24/2024 9:00 EST Appointment [facility] Radiology CT Outpatient - [address] [address] 04/24/2024 11:00 EST Appointment [facility] Breast Imaging - [facility] [address] [place], [place] 525041 04/27/2024 12:00 EST Appointment [facility] Hematology & Oncology - [address] [address] 05/02/2024 15:00 EST Telemedicine [facility] Hematology & Oncology [address] 429101 Alisson Carreon MD [address] [place] [address] [phone] 05/04/2024 10:15 EST Ancillary Procedure [facility] [place]iology [place] [address] [place] [address] 05/04/2024 11:30 EST Appointment [facility] Hematology & Oncology - [address] [address] 05/04/2024 12:00 EST Appointment [facility] Hematology & Oncology [address] [phone] 06/12/2024 13:00 EST Appointment [facility] Radiology CT - [address] [phone] documented as of this encounter Visit Diagnoses Not on filedocumented in this encounter Care Teams Marketing Instructor Relationship Specialty Start Date End Date Linda Blancas MD [address] [place] [address] 30 [place] [address] PCP - General 01/06/11 Adolfo Carreno MD [address] [place] [address] 2 [place] [address] General Surgery 04/26/19 documented as of this encounter
--- OUTSIDE RECORDS SUMMARY | 2024-03-20 14:32 | XMS_ITS | Encounter Summary ---
Author Organization [facility] Address [address] [place] [address] Care Team Providers Care [employer] Commissioner Name Role Phone Linda Blancas MD Primary Care Provider Adolfo Carreno MD Unavailable [phone] Reason for Visit * Reason Comments Follow-up Encounter Details Date Type Department Care Team (Late st Contact Info) Description 02/16/2024 13:00 EDT Telemedicine [facility] Cancer Center Hematology & Oncology - [address] [phone] Alisson Carreon MD [address] [place] [address], Level 2 [place] [phone] Malignant neoplasm of right female breast, unspecified [...] 0.6 oz pur e alcohol) [facility] Utilities Answer Date Recorded In the past 12 months has [employer] electric, gas, oil, or water company threatened [...] were you homeless or living in a correction (including now)? No 01/10/2024 Interpersonal Safety Answer [...] Progress Notes * Alisson Carreon MD - 02/16/2024 1300 EDT Follow Up Breast Oncology Telemedicine Visit 02/16/24 Assessment & Plan 63 y.o. female with [...] 27-29 >800 10/18/23 C#1 T-dxd (Enhertu) Molecular: [facility] [employer] testing Apr 2022: ESR1 E380Q mutation (no PIK3CA mutation) L. Lung biopsy 06/22/23 - adenocarcinoma consistent with metastatic breast cancer; ER+ >90%, TN < 5%; HER2 2+ equivocal; Orange FISH testing negative 11/29/23 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%) Genetics: NMN VUS per notes 11/09/23 CTA: [...] weeks (r/o pneumonitis side effect) Repeat CT 02/20 then proceed with enhertu if healed from PJP and Covid and if cleared by ID, she understands if needs to be postponed Continue diuretics with hepatology, ascitic fluid from portal HTN, consider aspira catheter, she will d/w clinical administrator Palliative care consult pending Will ask pulmonary if should postpone PFTs (02/20) Will ask SW to join in next visit if possible, help facilitate communication and coordination of care, support who is very involved and sometimes overwhelmed Transaminits (grade 1) from liver mets: monitor ECHO every 3-6 months Zoom f/u next week Breast Oncology History PROBLEM LIST: 1. 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 Ultrasound performed in [place] identifying an irregular heterogeneous soft tissue mass measuring 1.2 x 1.2 x 1.5 cm. b. Two punch biopsies near the site of the skin changes the right breast perfomed by Dr Carreno 10/21/2016; Pathology identified an invasive ductal type carcinoma involving the epidermis and dermis ofthe skin, nuclear grade 2, which was ER+80%, TN+20%. HER-2 1+ by IHC. ANNE MARIE revealed [...] breast tumor 07/07/17 and placement of tissue service desk director. 1.9 cm tumor at time ofsurgery, well [...] consistent with metastatic breast cancer; ER+ >90%, TN < 5%; HER2 2+ equivocal; Orange FISH testing negative M. Elacestrant initiated early [...] SW consult would be a good idea. Subjective Zoom f/u diagnosed with covid yesterday and started on lageverio Feels OK overall 76% better since discharge in Jan On 2L 02 intermittent Because I did not have paracentesis today due to Covid I have some fluid build up.so I am coughingmore probably because of Covid and fluid build up, I know my wants me back on chemo but since tumor marker going down so we are OK waiting some more time PFT on Lolis prob should be postponed by a week Objective There were no vitals filed for [...] above interpretation and agree with the findings. [id number] CT CHEST WO CONTRAST Result Date: 02/07/2024 Known metastatic breast cancer with involvement of the lung, liver and cervical nodes. Interval improvement of bilateral groundglass opacities with residual groundglass opacities in the left upper lobe, and bilateral lower lobes. The imaging findings may represent incomplete resolution of known pneumonia. However, underlying inflammatory pneumonitis may have a similar distribution and difficult to entirely exclude. [id number] IR PARACENTESIS-RADIOLOGY Result Date: 01/31/2024 Successful, uncomplicated paracentesis using sonographic guidance yielding 2 L fluid. LUNA Arguelles PA-C Interventional Radiology The procedure was performed by TANK Arguelles, in interventional radiology. Direct supervision was provided by the attending physician, Dr. Palumbo. I have personally reviewed the images and the above interpretation and agree with the findings. [id number] IR PARACENTESIS-RADIOLOGY Result Date: 01/25/2024 Successful removal of 1.5 liters of ascitic fluid from the abdomen. [id number] Data reviewed this visit include: problem list/past [...] Description 04/02/2024 10:30 EDT Appointment [facility] Interventional Radiology Unit [address] [place] [address] [phone] 04/02/2024 15:15 EDT Office Visit [facility] Surgical Oncology - [address] [phone] Adolfo Carreno MD 111 [facility], Level 2 [place] [phone] 04/05/2024 9:30 EDT Telemedicine [facility] Palliative Care Services [address] [place], [place] 988141 Chichi Woods MD 111 [facility], [address] [phone] 04/11/2024 15:00 EDT Telemedicine [facility] Hematology & Oncology [facility] [address] [place], [place] 7787[address] Alisson Carreon MD [address] [place] [address], [facility] [address] [place] [phone] 04/13/2024 13:30 EDT Appointment [facility] Hematology & Oncology - [address] [phone] 04/13/2024 14:00 EDT Appointment [facility] Hematology & Oncology - [address] [phone] 04/16/2024 10:00 EST Telemedicine [facility] - [facility] Palliative Care Services [address] [place] [address] [phone] Chichi Woods MD [address] [place] [address], [address] [phone] 04/24/2024 9:00 EST Appointment [facility] Radiology CT Outpatient - [address] [phone] 04/24/2024 11:00 EST Appointment [facility] Breast Imaging - [facility] [address] 169581 04/27/2024 12:00 EST Appointment [facility] Hematology & Oncology - [address] [phone] 05/02/2024 15:00 EST Telemedicine [facility] Hematology & Oncology - [address] [phone] Alisson Carreon MD [address] [place] [address], [facility] [address] [place] [phone] 05/04/2024 10:15 EST Ancillary Procedure [facility] Cardiology - [address] [place], [place] [phone] 05/04/2024 11:30 EST Appointment [facility] Hematology & Oncology [address] [address] 05/04/2024 12:00 EST Appointment [facility] Hematology & Oncology - [address] [address] 06/12/2024 13:00 EST Appointment [facility] Radiology CT - [address] [address] documented as of this encounter Visit Diagnoses Diagnosis Malignant neoplasm of right female breast, unspecified estrogen receptor status, unspecified site of breast (HCC-CMS)- Primary 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 Commissioner Relationship Specialty Start Date End Date Linda Blancas MD [facility] [address] [place] [address] PCP - General 01/06/11 Adolfo Carreno MD [address] [place] [address], Level [address] [place] [phone] General Surgery 04/26/19 documented as of this encounter
--- OUTSIDE RECORDS SUMMARY | 2024-03-20 14:32 | XMS_ITS | Encounter Summary ---
Author Organization [facility] Address [address] [place] [address] Care Team Providers Care Interactive Media Director Name Role Phone Linda Blancas MD Primary Care Provider [phone] Adolfo Carreno MD Unavailable [phone] Reason for Visit * Reason Onset Date Comments Appointment Related 02/24/2024 Encounter Details Date Type Department Care Team (Late st Contact Info) Description 02/24/2024 Telephone [facility] Pulmonology & Critical Care - [facility] [address] [place], [place] 474981 Ana Quintanilla MD [address] [place], [place] 159751 Appointment Related Social History Tobacco Use Types Packs/Day Years Used Date Smoking Tobacco: Never Passive Smoke Exposure: Never Smokeless Tobacco: Never Alcohol Use Standard Drinks/Week Comments Not Currently 1 (1 standard drink = 0.6 oz pur e alcohol) [facility] Utilities Answer Date Recorded In the [...] were you homeless or living in a long term (including now)? No 01/10/2024 Interpersonal Safety Answer [...] encounter Miscellaneous Notes * Telephone Encounter - Christi Pugh - 02/24/2024 0902 EDT Left message for patient regarding cancelling provider visit on 03/07/24 (not needed until April 2024, per provider). Patient will still have PFT visit on 03/08/24. documented in this encounter Plan of Treatment Upcoming Encounters Date Type Department Care Team (Late st Contact Info) Description 04/02/2024 10:30 EDT Appointment [facility] Interventional Radiology Unit [address] [place] [address] [phone] 04/02/2024 15:15 EDT Office Visit [facility] Surgical Oncology - [address] [phone] Adolfo Carreno MD [address] [place] [address] 2 [place] [phone] 04/05/2024 9:30 EDT Telemedicine [facility] - [facility] Palliative Care Services [address] [place] [address] [phone] Chichi Woods MD [address] [place] [address], [address] [phone] 04/11/2024 15:00 EDT Telemedicine [facility] Hematology & Oncology [address] [phone] Alisson Carreon MD [address] [place] [address] 2 [place] [phone] 04/13/2024 13:30 EDT Appointment [facility] Hematology & Oncology [address] [phone] 04/13/2024 14:00 EDT Appointment [facility] Hematology & Oncology - [address] [phone] 04/16/2024 10:00 EST Telemedicine [facility] - [facility] Palliative Care Services [address] [place] [address] [phone] Chichi Woods MD 111 [facility], [address] [phone] 04/24/2024 9:00 EST Appointment [facility] Radiology CT Outpatient - [address] 015291 04/24/2024 11:00 EST Appointment [facility] Breast Imaging - [address] 186781 04/27/2024 12:00 EST Appointment [facility] Hematology & Oncology - [address] 768331 05/02/2024 15:00 EST Telemedicine [facility] Hematology & Oncology - [address] 072171 Alisson Carreon MD [address] [place] [address], Level [address] [place] [phone] 05/04/2024 10:15 EST Ancillary Procedure [facility] Cardiology [place] [place] [address] 05/04/2024 11:30 EST Appointment [facility] Hematology & Oncology - [address] [phone] 05/04/2024 12:00 EST Appointment [facility] Hematology & Oncology - [address] [phone] 06/12/2024 13:00 EST Appointment [facility] Radiology CT - [address] [phone] documented as of this encounter Visit Diagnoses Not on filedocumented in this encounter Care Teams Interactive Media Director Relationship Specialty Start Date End Date Linda Blancas MD [facility] [address] [place] [address] PCP - General 01/06/11 Adolfo Carreno MD [address] [place] [address], [facility] 2 [place] [phone] General Surgery 04/26/19 documented as of this encounter
--- OUTSIDE RECORDS SUMMARY | 2024-03-20 14:32 | XMS_ITS | Encounter Summary ---
Author Organization [facility] Address [address] [place] [address] Care Team Providers Care Oncology Patient Navigator Name Role Phone Linda Blancas MD Primary Care Provider [phone] Adolfo Carreno MD Unavailable [phone] Reason for Visit * Reason Comments IR Procedure Follow-up Encounter Details Date Type Department Care Team (Late st Contact Info) Description 02/29/2024 14:00 EDT Telemedicine [facility] Interventional Radiology - [address] [phone] David Moya MD [address] [place] [address] Level 1 [place] [phone] Metastases to the liver (HCC-CMS) (Primary Dx) Social History Tobacco Use Types Packs/Day Years Used Date Smoking Tobacco: Never Passive Smoke Exposure: Never Smokeless Tobacco: Never Alcohol Use Standard Drinks/Week Comments Not Currently 1 (1 standard drink = 0.6 oz pur e alcohol) [facility] Utilities Answer Date Recorded In the past 12 months has [employer], gas, oil, or water company threatened [...] any time in the past 12 m [facility], were you homeless or living in [...] as of this encounter Progress Notes * David Moya MD - 02/29/2024 1400 EDT Subjective: Patient ID: Sunshine Pleitez is an 63 y.o. female. Chief Complaint Patient presents with IR Procedure Follow-up Type of visit: Televideo Medical oncologist: Dr. Lauri MORAES 63-year-old female with metastatic breast cancer seen in follow-up after transarterial radioembolization of the liver. In order to control her liver specific disease progression, on 04/08/2022, she underwent conventional dose right lobar transarterial radioembolization of the liver. On 05/14/2022, she underwent conventional dose transarterial radioembolization to the left lobe of the liver. Both of these procedures were well-tolerated. Patient has a long send history of metastatic breast cancer,and has been on multiple lines of chemotherapy, and has extrahepatic metastases to her mediastinum,cervical lymph nodes, lungs, and bones. Patient has paused her systemic therapy while she recovers from recent pneumonia. Patient's biggest complaint most recently is abdominal distention and ascites requiring repeated paracenteses. Cytologic evaluation reveals this is most likely benign ascites related to portal hypertension. The patient feels significant relief when she undergoes paracentesis. 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 Menopausal and postmenopausal disorder Encounter for routine gynecological examination Lumbar radicular syndrome Acquired spondylolisthesis Lumbosacral spondylosis without myelopathy Acquired absence of breast and nipple Personal history of malignant neoplasm of breast Plantar fasciitis of left foot Unstable right ankle Hallux rigidus of right foot Trigger thumb of left hand Plantar fat pad atrophy Breast lump Primary malignant neoplasm of breast with metastasis (HCC-CMS) Malignant neoplasm of female breast (HCC-CMS) Palliative care by specialist Osteopenia S/P breast reconstruction, right Lipoma of back Retinal tear of left eye PVD (posterior vitreous detachment), both eyes Bilateral retinal lattice degeneration Dry eye syndrome of both eyes Epiretinal membrane (ERM) of left eye Acute pulmonary embolism without acute cor pulmonale (HCC-CMS) Chronic cough Gastroesophageal reflux disease Metastatic malignant neoplasm (HCC-CMS) Other ascites Encephalopathy acute Acute hypoxic respiratory failure ([facility]) Shortness of breath Anemia, unspecified type Abnormal CT of the chest Mild malnutrition ([facility]) ([facility]) Ground glass opacity present on imaging of lung Leukocytosis 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 ([facility]) Goals of care, counseling/discussion Past Medical History: Diagnosis Date Acquired spondylolisthesis Activity, other involving cardiorespiratory exercise snow shoeing Allergy Arthritis right big toe Back pain spinal fussion no issues currently 08/25/20 Breast cancer ([facility]) 11/2003 DCIS - right breast Breast cancer, right ([facility]) Depression 08/25/20 well controlled Environmental allergies Exercise involving walking GERD (gastroesophageal reflux disease) well controlled 08/25/20 H/O spinal fusion L3-S1 spinal fusion 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 History of general anesthesia Immunosuppressed status ([facility]) 12.11.21 Breast cancer stage 4 Liver disease 10.12.23 Acsitiesm Lumbar radicular syndrome Nausea & vomiting Numbness Pulmonary embolism ([facility]) 11.11.23 Reactive airway disease 09.12.23 Shortness of breath 09.12.23 Swelling 11.11.23 Right arm, below waist, both legs Wears glasses Past Surgical History: Procedure Laterality Date BACK SURGERY 12/2011 L3 - S1 spinal decompression and fusion - pt has hardware in place-[place] no complications BREAST RECONSTRUCTION 01/30/2004 subpectoral implant - [place] no complications BREAST RECONSTRUCTION 05/2018 right - [place] no complications BREAST SURGERY 01/30/2004 Right mastectomy - [place] no complications BREAST SURGERY 08/2018 furniture removalist's assistant placed right breast - [place] no complications CARPAL TUNNEL RELEASE 200705/07/2019 beir block - no complications EYE SURGERY Partially detached retina FOOT SURGERY 05/2021 right big toe fused, right little toe screw FRACTURE SURGERY Morrell fractures in both feet,right big toe fusion LIPOMA RESECTION 200005/07/2019 [place] no complications [place] INSJ/RPLCMT BREAST IMPLANT Feb MASTECTOMY Bilateral 05/30/2019 Exchange right tissue furniture removalist's assistant to silicone implant, exchange of left implant for matching performedby Tylor Boss MD at [facility] OR Family History Problem Relation Age of Onset Cancer Father Lung cancer Heart Disease Father Stroke Mother Mental Illness Mother Bipolar *Other(comment) Sister SA valve failure Cancer Brother 59 esophageal Stroke Brother Blot clot in his sleep Liver Disease Brother Cancer Maternal Uncle bladder Breast Cancer Paternal Aunt 35 Cancer Paternal Aunt 35 breast Cancer Paternal Aunt Breast cancer Social Social History Tobacco Use Smoking status: Never Passive exposure: Never Smokeless tobacco: Never Vaping Use Vaping status: Never Used Substance Use Topics Alcohol use: Not Currently Alcohol/week: 1.0 standard drink of alcohol Types: 1 Glasses of wine per week Drug use: No No outpatient medications have been marked as taking for the 02/29/24 encounter (Telemedicine) with David Moya MD. Allergies Allergen Reactions Adhesive Other (See Comments) Thin skin and sensitive Amoxicillin Other (See Comments) and Rash Red rash Sulfa (Sulfonamide Antibiotics) Hives Light lavender rash Sulfamethoxazole-Trimethoprim Rash ROS - See HPI Objective: There were no vitals taken for this visit. Physical Exam Not performed Assessment: 63-year-old female with metastatic breast cancer, now with benign ascites related to scarring from prior chemotherapy as well as radioembolization. There is no role for additional liver directed therapy to treat her cancer, secondary to this cirrhosis type picture. I discussed management of benign ascites with conservative measures coordinated with Dr. Vergara, as well as recurrent large- volume paracentesis. For benign ascites, there is a limited role for placement of a tunneled Aspira peritoneal catheter, as over the long-term this carries a significant infection risk. At some point however, placement of a drain may offer an advantage in terms of quality of life, however should be reserved for when she only has a life expectancy of 3 to 6 months. Plan: Sunshine was seen today for ir procedure follow-up. Diagnoses and all orders for this visit: Metastases to the liver (HCC-CMS) No further liver directed therapy No plans for Aspira tunneled peritoneal catheter at this time Follow up in 3 months I spent a total of 30 minutes in disease review, image review, counseling, treatment planning and coordination of care as described in the progress note. David Moya MD The concept of ???Telemedicine?? has been described to the patient. Patient has been informed of the anticipated benefits and possible risks. Patient understands the information provided regarding telemedicine, has had the opportunity to ask questions about this information, and all questions havebeen answered to patient???s satisfaction. Patient consents for the use of telemedicine in his/her medical care and authorizes the transmission of any relevant medical information to providers and their staff involved in patient???s medical or mental health care. TELEMEDICINE VIDEO VISIT Today's visit was provided through telemedicine video conferencing: I have reviewed the appropriateness of using video technology with the patient with regards to today's visit. The location of the patient : Home (where patient lives) The location of the provider: Office The following people and their roles were present for today's visit: Appointment Provider: David Moya MD Geoffrey Michael Scriver, MD documented in this encounter Plan of Treatment Upcoming Encounters Date Type Department Care Team (Late st Contact Info) Description 04/02/2024 10:30 EDT Appointment [facility] Interventional Radiology Unit [address] [place] [phone] 04/02/2024 15:15 EDT Office Visit [facility] Surgical Oncology - [address] [phone] Adolfo Carreno MD [address] [place] [address] 2 [place] [phone] 04/05/2024 9:30 EDT Telemedicine [facility] Palliative Care Services [address] [place] [address] [phone] Chichi Woods MD [address] [place] [phone] 04/11/2024 15:00 EDT Telemedicine [email or web address] Hematology & Oncology [address] [phone] Alisson Carreon MD [address] [place] [address] 2 [place] [phone] 04/13/2024 13:30 EDT Appointment [email or web address] Hematology & Oncology - [address] [address] 04/13/2024 14:00 EDT Appointment [facility] [[email or web address] Hematology & Oncology [address] [phone] 04/16/2024 10:[address] [facility] - [facility] Palliative Care Services [address] [place] [address] [phone] Chichi Woods MD [address] [place] [address], [address] [phone] 04/24/2024 9:00 EST Appointment [facility] Radiology CT Outpatient - [address] [id number] 04/24/2024 11:00 EST Appointment [facility] Breast Imaging - [facility] [address] [phone] 04/27/2024 12:00 EST Appointment [facility] [[email or web address] Hematology & Oncology - [address] [phone] 05/02/2024 15:00 EST Telemedicine [facility] [[email or web address]] Hematology & Oncology [address] [phone] Alisson Carreon MD [address] [place] [address], Level 2 [place] [phone] 05/04/2024 10:15 EST Ancillary Procedure [facility] Cardiology - [place] [place] [address] 05/04/2024 11:30 EST Appointment [email or web address] Hematology & Oncology [address] [id number] 05/04/2024 12:00 EST Appointment [email or web address] Hematology & Oncology [address] [phone] 06/12/2024 13:00 [facility] Radiology CT - [facility] [address] [place], [place] [phone] documented as of this encounter Visit Diagnoses Diagnosis Metastases to the liver (HCC-CMS)- Primary Secondary malignant neoplasm of liver documented in this encounter Care Teams Oncology Patient Navigator Relationship Specialty Start Date End Date Linda Blancas MD [facility] [address] [place] [address] PCP - General 01/06/11 Adolfo Carreno MD [address] [place] [address], [facility], Level [address] [place] [phone] General Surgery 04/26/19 documented as of this encounter
--- OUTSIDE RECORDS SUMMARY | 2024-03-20 14:32 | XMS_ITS | Encounter Summary ---
Author Organization [facility] Address [address] [place] [address] Care Team Providers Care Pier Hand Helper Name Role Phone Linda Blancas MD Primary Care Provider [phone] Adolfo Carreno MD Unavailable [phone] Reason for Visit * Reason Onset Date Comments Follow-up 02/15/2024 Encounter Details Date Type Department Care Team (Late st Contact Info) Description 02/15/2024 Refill [facility] Infectious Disease - [facility] [address] [place] [address] Sandhya Aguilar RN Follow-up Social History Tobacco Use Types Packs/Day Years Used Date Smoking Tobacco: Never Passive Smoke Exposure: Never Smokeless Tobacco: Never Alcohol Use Standard Drinks/Week Comments Not Currently 1 (1 standard drink = 0.6 oz pur e alcohol) [facility] Utilities Answer Date Recorded In the past 12 months has e [employer], gas, oil, or water [employer] threatened to shut off services in your [...] you? 01/08/2024 How often does anyone, joselynstefanie yung family, insult, scream, curse or threaten [...] mouth every 24 hours. 840 mL 3 02/15/2024 02/16/2024 atovaquone (MEPRON) 750 mg/5 mL suspension Take 10 mL by mouth every 24 hours. 840 mL 3 02/15/2024 02/15/2024 documented in this encounter Miscellaneous Notes * Telephone Encounter - Sandhya Aguilar RN - 02/15/2024 1643 EDT Patient and her called and stated she tested positive for Covid. Better phone number to reach them is his phone at [phone]. She began developing symptoms 2 days ago and is wondering if she could start on Molnupiravir. Patient's PCP has ordered the molnupiravir to the [facility]. Per Dr. Ferrell and [place] specialty pharmacy it is fine for patient to take the molnupiravir. Also Dr. Ferrell would like patient to continue taking the atovaquone. He is aware her last dose was on 02/11/2024. Sent in refills of atovaquone to [facility] in [place], [place]. Patient will start both medications. Also asked them per Dr. Ferrell to get labs drawn, T cell subset and CBC with diff. They prefer to get labs drawn at [facility]. They will call if any questions. SANDHYA AGUILAR RN documented in this encounter Plan of Treatment Upcoming Encounters Date Type Department Care Team (Late st Contact Info) Description 04/02/2024 10:30 EDT Appointment [facility] Interventional Radiology Unit [address] [place], [place] 819221 04/02/2024 15:15 EDT Office Visit [facility] Surgical Oncology - [facility] [address] [place], [place] [phone] Adolfo Carreno MD [address] [facility], [facility] [address] [place] [phone] 04/05/2024 9:30 EDT Telemedicine [facility] - [facility] Palliative Care Services [address] [place], [place] 255441 Chichi Woods MD [address] [place] [address] [address] [place] [phone] 04/11/2024 15:00 EDT Telemedicine [facility] Hematology & Oncology - [address] [phone] Alisson Carreon MD [address] [place] [address], Level [address] [place] [phone] 04/13/2024 13:30 EDT Appointment [facility] Hematology & Oncology [address] [phone] 04/13/2024 14:00 EDT Appointment [facility] Hematology & Oncology [address] 643001 04/16/2024 10:00 EST Telemedicine [facility] - [facility] Palliative Care Services [address] [place] [address] [phone] Chichi Woods MD [address] [place] [address] [phone] 04/24/2024 9:00 EST Appointment [facility] Radiology CT Outpatient - [address] [id number] 04/24/2024 11:00 EST Appointment [facility] Breast Imaging - [address] [phone] 04/27/2024 12:00 EST Appointment [facility] Hematology & Oncology - [address] [phone] 05/02/2024 15:00 EST Telemedicine [facility] Hematology & Oncology - [address] 355991 Alisson Carreon MD 111 [facility], [facility], Level [address] [place] [phone] 05/04/2024 10:15 EST Ancillary Procedure [facility] Cardiology - [address] [place], [place] [phone] 05/04/2024 11:30 EST Appointment [facility] Hematology & Oncology - [address] [phone] 05/04/2024 12:00 EST Appointment [facility] Hematology & Oncology [address] [phone] 06/12/2024 13:00 EST Appointment [facility] Radiology CT - [address] [address] documented as of this encounter Results * T CELL SUBSETS (03/13/2024 7:41 EDT) % CD3 79 56 - 84 % 03/13/2024 13:43 EDT [facility] % CD4 63 31 - 64 % 03/13/2024 13:43 EDT [facility] % CD8 16 9 - 39 % 03/13/2024 13:43 EDT [facility] Absolute CD3 1,284 840 - 2,669 Cells/uL 03/13/2024 13:43 T [facility] Absolute CD4 1,030 488 - 1,734 Cells/uL 03/13/2024 13:43 T [facility] Absolute CD8 262 154 - 1,097 Cells/uL 03/13/2024 13:43 EDT [facility] 4/8 Ratio 3.93 >=0.90 03/13/2024 13:43 [facility] Blood VENOUS BLOOD / Unknown Venipuncture / Unknown 03/13/2024 7:41 EDT 03/13/2024 8:01 EDT Errol Ferrell MD IMMUNOLOGY AND S EROLOGY ORDERABLES [facility] [address] [place], [place] [phone] documented in this encounter Visit Diagnoses Diagnosis Pneumocystosis ([facility])- Primary Pneumocystosis Community acquired pneumonia, unspecified laterality documented in this encounter Discontinued Medications Medication Sig Discontinue Reason Start Date End Da te atovaquone (MEPRON) 750 mg/5 mL suspension Take 10 mL by mouth every 24 hours for 30 days. Reorder 01/12/2024 02/15/2024 atovaquone (MEPRON) 750 mg/5 mL suspension Take 10 mL by mouth every 24 hours. Reorder 02/15/2024 02/15/2024 documented as of this encounter Orders Lab Orders Without Results Count Last Ordered D ate First Ordered Date COMPLETE BLOOD COUNT AND DIFFERENTIAL 1 09/2023 documented in this encounter Care Teams Pier Hand Helper Relationship Specialty Start Date End Date Linda Blancas MD [facility] [address] [place] [address] PCP - General 01/06/11 Adolfo Carreno MD 111 [facility], [facility] 2 [place] [phone] General Surgery 04/26/19 documented as of this encounter
--- OUTSIDE RECORDS SUMMARY | 2024-03-20 14:32 | XMS_ITS | Encounter Summary ---
Author Organization [facility] Address [address] [place] [address] Care Team Providers Care [employer] Crewmember Name Role Phone Linda Blancas MD Primary Care Provider [phone] Adolfo Carreno MD Unavailable [phone] Encounter Details Date Type Department Care Team (Latest Contact Info) Description 03/13/2024 7:15 EDT - 03/13/2024 7:55 EDT Hospital Encounter [facility] Hematology & Oncology - [facility] [address] [place], [place] [phone] Primary malignant neoplasm of breast with metastasis (HCC-CMS); 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, were you homeless or living in [...] documented in this encounter Progress Notes * Stacy Roper, RN - 03/13/2024 0745 EDT Sunshine Myles Pleitez presents to EP2 infusion for port access and flush. IVAD in right anterior chest accessed using sterile technique and size 19 3/4 POWER Kessler needle. Brisk blood return noted;flushed without difficulty. Labs sent as per order. Port for CT scan today. I was supervised by Dr. Pandey who was present and immediately available in the office suite. STACY ROPER RN 03/13/2024 documented in this encounter Plan of Treatment Upcoming Encounters Date Type Department Care Team (Late st Contact Info) Description 04/02/2024 10:30 EDT Appointment [facility] Interventional Radiology Unit [address] [place] [address] [phone] 04/02/2024 15:15 EDT Office Visit [facility] Surgical Oncology - [address] [phone] Adolfo Carreno MD [address] [place] [address] 2 [place] [phone] 04/05/2024 9:30 EDT Telemedicine [facility] - [facility] Palliative Care Services [address] [place] [address] [phone] Chichi Woods MD [address] [place] [address], [address] [phone] 04/11/2024 15:00 EDT Telemedicine [facility] Hematology & Oncology - [address] [phone] Alisson Carreon MD [address] [place] [address] 2 [place] [phone] 04/13/2024 13:30 EDT Appointment [facility] Hematology & Oncology - [address] [phone] 04/13/2024 14:00 EDT Appointment [facility] Hematology & Oncology - [address] [phone] 04/16/2024 10:00 EST Telemedicine [facility] - [facility] Palliative Care Services [address] [place], [place] [address] Chichi Woods MD 111 [facility], [address] [phone] 04/24/2024 9:00 EST Appointment [facility] Radiology CT Outpatient - [address] [id number] 04/24/2024 11:00 EST Appointment [facility] Breast Imaging - [address] [phone] 04/27/2024 12:00 EST Appointment [facility] Hematology & Oncology - [address] 240311 05/02/2024 15:00 EST Telemedicine [facility] Hematology & Oncology - [address] 182771 Alisson Carreon MD [address] [place] [address], Level [address] [place] [phone] 05/04/2024 10:15 EST Ancillary Procedure [facility] Cardiology [place] [address] [place] [address] 05/04/2024 11:30 EST Appointment [facility] Hematology & Oncology - [address] [phone] 05/04/2024 12:00 EST Appointment [facility] Hematology & Oncology - [address] [id number] 06/12/2024 13:00 EST Appointment [facility] Radiology CT - [address] [phone] documented as of this encounter Procedures Procedure Name Priority Date/Time Associated Diagnosis Comments T CELL SUBSETS Routine 03/13/2024 7:41 EDT [...] (HCC-CMS) documented in this encounter Results * T CELL SUBSETS (03/13/2024 7:41 EDT) % CD3 79 56 - 84 % 03/13/2024 13:43 [facility] % CD4 63 31 - 64 % 03/13/2024 13:43 [facility] % CD8 16 9 - 39 % 03/13/2024 13:43 [facility] Absolute CD3 1,284 840 - 2,669 Cells/uL 03/13/2024 13:43 [facility] Absolute CD4 1,030 488 - 1,734 Cells/uL 03/13/2024 13:43 [facility] Absolute CD8 262 154 - 1,097 Cells/uL 03/13/2024 13:43 [facility] 4/8 Ratio 3.93 >=0.90 03/13/2024 13:43 T [facility] Blood VENOUS BLOOD / Unknown Venipuncture / Unknown 03/13/2024 7:41 EDT 03/13/2024 8:01 EDT Errol Ferrell MD IMMUNOLOGY AND S EROLOGY ORDERABLES [facility] [address] [place], [place] [id number] * (ABNORMAL) COMPLETE BLOOD COUNT AND DIFFERENTIAL (03/13/2024 7:41 EDT) WBC 9.68 4.00 - 12.40 K/cmm 03/13/2024 8:06 [facility] RBC 3.72(L) 3.86 - 5.04 M/cmm 03/13/2024 8:06 [facility] Hemoglobin 13.0 11.6 - 15.2 g/dL 03/13/2024 8:06 [facility] HCT 38.3 34.9 - 44.4 % 03/13/2024 8:06 [facility] MCV 103(H) 81 - 98 fL 03/13/2024 8:06 [facility] MCH 34.9(H) 26.7 - 33.3 pg 03/13/2024 8:06 [facility] MCHC 33.9 32.1 - 35.9 g/dL 03/13/2024 8:06 [facility] RDW-CV 14.9(H) <14.7 % 03/13/2024 8:06 [facility] RDW-SD 56.4(H) <50.4 fl 03/13/2024 8:06 [facility] PLT 228 141 - 377 K/cmm 03/13/2024 8:06 [facility] MPV 10.3 9.5 - 12.7 fL 03/13/2024 8:06 [facility] % Neutrophils 69.6 Not Indicated % 03/13/2024 8:06 [facility] % Lymphocytes 14.2 Not Indicated % 03/13/2024 8:06 [facility] % Monocytes 13.7 Not Indicated % 03/13/2024 8:06 [facility] % Eosinophils 1.3 Not Indicated % 03/13/2024 8:06 [facility] % Basophils 0.5 Not Indicated % 03/13/2024 8:06 [facility] % Immature Grans 0.7 Not Indicated % 03/13/2024 8:06 [facility] Absolute Neutrophils 6.73 2.20 - 8.85 K/cmm 03/13/2024 8:06 [facility] Absolute Lymphocytes 1.37 1.09 - 3.30 K/cmm 03/13/2024 8:06 [facility] Absolute Monocytes 1.33(H) 0.10 - 0.80 K/cmm 03/13/2024 8:06 [facility] Absolute Eosinophils 0.13 0.03 - 0.61 K/cmm 03/13/2024 8:06 [facility] ABS Basophils 0.05 0.01 - 0.11 K/cmm 03/13/2024 8:06 [facility] Absolute Immature Grans 0.07(H) 0.00 - 0.06 K/cmm 03/13/2024 8:06 [facility] Type of Differential: Auto 03/13/2024 8:06 [facility] Blood VENOUS BLOOD / Unknown Venipuncture / Unknown 03/13/2024 7:41 EDT 03/13/2024 7:52 EDT Augustina Colin MD PhD PACKAGES & DNA PROBE ORDERABLES [facility] [address] [place] [address] * (ABNORMAL) CA 27.29 (03/13/2024 7:38 EDT) CA 27.29 128.0(H) <38.0 U/mL 03/14/2024 11:14 [facility] Comment: NOTE: Serum CA 27.29 concentration should not be interpreted as absolute evidence for the presence or absence of malignant disease. Assayed on Siemens ADVIA Centaur XPT using chemiluminescent technology. ??Values obtained by using different assay methods cannot be used interchangeably. Blood VENOUS BLOOD / Unknown Venipuncture / Unknown 03/13/2024 7:38 EDT 03/13/2024 7:52 EDT Alisson Carreon MD CHEMISTRY & BLOOD G ORDERABLES [facility] [address] [place] [address] * (ABNORMAL) COMPREHENSIVE METABOLIC PANEL (ONCOLOGY USE ONLY-INC MG) (03/13/2024 7:38 EDT) Sodium 132(L) 136 - 145 mmol/L 03/13/2024 8:48 [facility] Potassium 4.3 3.5 - 5.0 mmol/L 03/13/2024 8:48 [facility] Chloride 94(L) 96 - 110 mmol/L 03/13/2024 8:48 [facility] CO2 Total 26 22 - 32 mmol/L 03/13/2024 8:48 [facility] Glucose 135(H) 70 - 99 mg/dl 03/13/2024 8:48 [facility] BUN 24 10 - 26 mg/dL 03/13/2024 8:48 [facility] Creatinine 0.70 0.52 - 1.04 mg/dL 03/13/2024 8:48 [facility] eGFR 98 >60 mL/min/1.7 3m2 03/13/2024 8:48 [facility] Total Protein 7.5 6.3 - 8.2 g/dL 03/13/2024 8:48 [facility] Albumin 3.6 3.4 - 4.9 g/dL 03/13/2024 8:48 [facility] Alkaline Phosphatase 421(H) 38 - 126 U/L 03/13/2024 8:48 [facility] AST 61(H) 15 - 46 U/L 03/13/2024 8:48 EDT [facility] ALT 36(H) <35 U/L 03/13/2024 8:48 T [facility] Bilirubin, Total 1.3 <1.4 mg/dL 03/13/20 8:48 T [facility] Calcium 10.1 8.5 - 10.5 mg/dL 03/13/2024 8:48 EDT [facility] Magnesium 2.1 1.7 - 2.8 mg/dL 03/13/2024 8:48 T [facility] Albumin/Globulin Ratio 0.9(L) 1.0 - 2.5 03/13/2024 8:48 T [facility] Anion Gap 12 5 - 14 mmol/L 03/13/2024 8:48 T [facility] Blood VENOUS BLOOD / Unknown Venipuncture / Unknown 03/13/2024 7:38 EDT 03/13/2024 7:52 EDT Augustina Colin MD PhD CHEMISTRY & BLOOD GA S ORDERABLES Performing Organization Address City/State/[facility] Co de Phone Number [facility] [address] [place] [address] * (ABNORMAL) COMPLETE BLOOD COUNT AND DIFFERENTIAL (03/13/2024 7:38 EDT) WBC 9.78 4.00 - 12.40 K/cmm 03/13/2024 8:07 [facility] RBC 3.73(L) 3.86 - 5.04 M/cmm 03/13/2024 8:07 [facility] Hemoglobin 13.0 11.6 - 15.2 g/dL 03/13/2024 8:07 [facility] HCT 38.1 34.9 - 44.4 % 03/13/2024 8:07 [facility] MCV 102(H) 81 - 98 fL 03/13/2024 8:07 [facility] MCH 34.9(H) 26.7 - 33.3 pg 03/13/2024 8:07 [facility] MCHC 34.1 32.1 - 35.9 g/dL 03/13/2024 8:07 [facility] RDW-CV 14.8(H) <14.7 % 03/13/2024 8:07 [facility] RDW-SD 56.2(H) <50.4 fl 03/13/2024 8:07 [facility] PLT 230 141 - 377 K/cmm 03/13/2024 8:07 [facility] MPV 10.1 9.5 - 12.7 fL 03/13/2024 8:07 [facility] % Neutrophils 70.1 Not Indicated % 03/13/2024 8:07 [facility] % Lymphocytes 13.9 Not Indicated % 03/13/2024 8:07 [facility] % Monocytes 14.0 Not Indicated % 03/13/2024 8:07 [facility] % Eosinophils 0.9 Not Indicated % 03/13/2024 8:07 [facility] % Basophils 0.4 Not Indicated % 03/13/2024 8:07 [facility] % Immature Grans 0.7 Not Indicated % 03/13/2024 8:07 [facility] Absolute Neutrophils 6.85 2.20 - 8.85 K/cmm 03/13/2024 8:07 [facility] Absolute Lymphocytes 1.36 1.09 - 3.30 K/cmm 03/13/2024 8:07 [facility] Absolute Monocytes 1.37(H) 0.10 - 0.80 K/cmm 03/13/2024 8:07 [facility] Absolute Eosinophils 0.09 0.03 - 0.61 K/cmm 03/13/2024 8:07 [facility] ABS Basophils 0.04 0.01 - 0.11 K/cmm 03/13/2024 8:07 [facility] Absolute Immature Grans 0.07(H) 0.00 - 0.06 K/cmm 03/13/2024 8:07 EDT [facility] Type of Differential: Auto 03/13/2024 8:07 EDT [facility] Blood VENOUS BLOOD / Unknown Venipuncture / Unknown 03/13/2024 7:38 EDT 03/13/2024 7:52 EDT Augustina Colin MD PhD PACKAGES & DNA PROBE ORDERABLES [facility] [address] [place] [address] documented in this encounter Visit Diagnoses Diagnosis Primary malignant neoplasm of breast with metastasis (HCC-CMS) CAP (community acquired pneumonia) due to Pneumocystis jirovecii ([facility]) Other ascites documented in this encounter Orders Lab Orders Without Results Count Last Ordered D ate First Ordered Date BASIC METABOLIC PANEL (BMP) 1 03/13/2024 CA 27.29 1 03/13/2024 COMPLETE BLOOD COUNT AND DIFFERENTIAL 1 06/2023 COMPREHENSIVE METABOLIC PANE L (ONCOLOGY USE ONLY-INC MG) 1 03/13/2024 documented in this encounter Care Teams [employer] Crewmember Relationship Specialty Start Date End Date Linda Blancas MD [facility] [address] [place] [address] PCP - General 01/06/11 Adolfo Carreno MD 111 [facility] [address] [place] [address] General Surgery 04/26/19 documented as of this encounter
--- OUTSIDE RECORDS SUMMARY | 2024-03-20 14:32 | XMS_ITS | Encounter Summary ---
Author Organization [facility] Address [address] [place] [address] Care Team Providers Care Telephone Repairer Name Role Phone Linda Blancas MD Primary Care Provider [phone] Adolfo Carreno MD Unavailable [phone] Reason for Visit * Reason Onset Date Comments Social Work 03/01/2024 Check in Encounter Details Date Type Department Care Team (Late st Contact Info) Description 03/01/2024 Telephone [facility] Cancer Center Hematology & Oncology - [facility] [address], [place] [phone] Trinh Posey Social Work (Check in) Social History Tobacco Use Types Packs/Day Years Used Date Smoking Tobacco: Never Passive Smoke Exposure: Never Smokeless Tobacco: Never Alcohol Use Standard Drinks/Week Comments Not Currently 1 (1 standard drink = 0.6 oz pur e alcohol) [facility] Utilities Answer Date Recorded In the past 12 months has [employer], gas, oil, or water [employer] threatened to shut off services in your [...] time in the past 12 m [facility], were you homeless or living in a jail (including now)? No 01/10/2024 Interpersonal Safety Answer [...] * Telephone Encounter - Trinh Posey - 03/01/2024 7678 EDT I sent a weekly check in message to pt via [employer]. Available should she or her need anything documented in this encounter Plan of Treatment Upcoming Encounters Date Type Department Care Team (Late st Contact Info) Description 04/02/2024 10:30 EDT Appointment [facility] Interventional Radiology Unit [address] [place] [address] [phone] 04/02/2024 15:15 EDT Office Visit [facility] Surgical Oncology - [address] [phone] Adolfo Carreno MD [address] [place] [address] 2 [place] [phone] 04/05/2024 9:30 EDT Telemedicine [facility] Palliative Care Services [address] [place] [address] [phone] Chichi Woods MD [address] [place] [phone] 04/11/2024 15:00 EDT Telemedicine [facility] Hematology & Oncology [address] [phone] Alisson Carreon MD [address] [place] [address] 2 [place] [phone] 04/13/2024 13:30 EDT Appointment [facility] Hematology & Oncology [address] [phone] 04/13/2024 14:00 EDT Appointment [facility] Hematology & Oncology [address] [phone] 04/16/2024 10:00 EST Telemedicine [facility] Palliative Care Services [address] [place] [address] [phone] Chichi Woods MD [address] [place] [address], [address] [place] [phone] 04/24/2024 9:00 EST Appointment [facility] Radiology CT Outpatient - [address] [id number] 04/24/2024 11:00 EST Appointment [facility] Breast Imaging - [facility] [address] [id number] 04/27/2024 12:00 EST Appointment [facility] Hematology & Oncology [address] [phone] 05/02/2024 15:00 EST Telemedicine [facility] Hematology & Oncology [address] [phone] Alisson Carreon MD [address] [place] [address], Level [address] [place] [phone] 05/04/2024 10:15 EST Ancillary Procedure [facility] Cardiology - [address] [place] [address] 05/04/2024 11:30 EST Appointment [facility] Hematology & Oncology [address] [id number] 05/04/2024 12:00 EST Appointment [facility] Hematology & Oncology [address] [phone] 06/12/2024 13:00 EST Appointment [facility] Radiology CT - [address] [phone] documented as of this encounter Visit Diagnoses Not on filedocumented in this encounter Care Teams Telephone Repairer Relationship Specialty Start Date End Date Linda Blancas MD [facility] [address] [place], [place] [address] PCP - General 01/06/11 Adolfo Carreno MD [address] [place] [address] 2 [place] [phone] General Surgery 04/26/19 documented as of this encounter
--- OUTSIDE RECORDS SUMMARY | 2024-03-20 14:32 | XMS_ITS | Encounter Summary ---
Author Organization [facility] Address [address] [place] [address] Care Team Providers Care Seismometer Operator Name Role Phone Linda Blancas MD Primary Care Provider [phone] Adolfo Carreno MD Unavailable [phone] Reason for Visit * Reason Onset Date Comments Results 02/23/2024 Encounter Details Date Type Department Care Team (Late st Contact Info) Description 02/23/2024 Telephone [facility] Gastroenterology - [facility] [address] [place], [place] 546[address] Yovana Bowman, SHELLEY Results Social History Tobacco Use Types Packs/Day Years Used Date Smoking Tobacco: Never Passive Smoke Exposure: Never Smokeless Tobacco: Never Alcohol Use Standard Drinks/Week Comments Not Currently 1 (1 standard drink = 0.6 oz pur e alcohol) [facility] Utilities Answer Date Recorded In the past 12 months has e [employer], gas, oil, or water [employer] threatened to shut off services in your [...] Telephone Encounter - Yovana Bowman RN - 02/23/2024 1410 EDT Date Weight (lb) Spironolactone Furosemide Na K Cr GFR 01/25/24 100 mg 20 mg 136 5.3 0.54 104 01/31/24 109 100 mg 40 mg 134 4.0 0.54 104 02/07/24 115 200 mg 40 mg 132 4.1 0.62 101 02/09/24 110 post para 200 mg 40 mg 02/11/24 111.6 200 mg 40 mg 02/22/24 200 mg 40 mg 136 3.7 0.65 99 S/p paracentesis 02/22/24. documented in this encounter Plan of Treatment Upcoming Encounters Date Type Department Care Team (Late st Contact Info) Description 04/02/2024 10:30 EDT Appointment [facility] Interventional Radiology Unit [address] [place] [address] [phone] 04/02/2024 15:15 EDT Office Visit [facility] Surgical Oncology - [address] [phone] Adolfo Carreno MD [address] [place] [phone] 04/05/2024 9:30 EDT Telemedicine [facility] - [facility] Palliative Care Services [address] [place] [address] [phone] Chichi Woods MD [address] [place] [address] [phone] 04/11/2024 15:00 EDT Telemedicine [facility] Hematology & Oncology - [address] [phone] Alisson Carreon MD [address] [place] [phone] 04/13/2024 13:30 EDT Appointment [facility] Hematology & Oncology - [address] [address] 04/13/2024 14:00 EDT Appointment [facility] Hematology & Oncology [address] [phone] 04/16/2024 10:00 EST Telemedicine [facility] - [facility] Palliative Care Services [address] [place] [address] [phone] Chichi Woods MD [address] [place] [address], [address] [phone] 04/24/2024 9:00 EST Appointment [facility] Radiology CT Outpatient - [address] [id number] 04/24/2024 11:00 EST Appointment [facility] Breast Imaging - [facility] S [address] [phone] 04/27/2024 12:00 EST Appointment [facility] Hematology & Oncology - [address] [phone] 05/02/2024 15:00 EST Telemedicine [facility] Hematology & Oncology [address] [phone] Alisson Carreon MD [address] [place] [address], [place] [facility], Level [address] [place] [phone] 05/04/2024 10:15 EST Ancillary Procedure [facility] Cardiology - [place] [address] 05/04/2024 11:30 EST Appointment [facility] Hematology & Oncology [address] [phone] 05/04/2024 12:00 EST Appointment [facility] Hematology & Oncology - [address] [phone] 06/12/2024 13:00 [facility] Radiology CT - [facility] [address] [place] [address] documented as of this encounter Visit Diagnoses Not on filedocumented in this encounter Care Teams Seismometer Operator Relationship Specialty Start Date End Date Linda Blancas MD [facility] [address] [place] [address] PCP - General 01/06/11 Adolfo Carreno MD [address] [place], [place] [facility], Level [address] [place] [phone] General Surgery 04/26/19 documented as of this encounter
--- OUTSIDE RECORDS SUMMARY | 2024-03-20 14:32 | XMS_ITS | Encounter Summary ---
Author Organization [facility] Address [address] [place] [address] Care Team Providers Care Coal Trammer Name Role Phone Linda Blancas MD Primary Care Provider [phone] Adolfo Carreno MD Unavailable [phone] Encounter Details Date Type Department Care Team (Late st Contact Info) Description 03/01/2024 15:42 EDT - 03/01/2024 23:59 EDT Hospital Encounter [facility] [address] [place] [address] Lab, [facility] Phlebotomy Other ascites Discharge Disposition: Home or Self Care Social History Tobacco Use Types Packs/Day Years Used Date Smoking Tobacco: Never Passive Smoke Exposure: Never Smokeless Tobacco: Never Alcohol Use Standard Drinks/Week Comments Not Currently 1 (1 standard drink = 0.6 oz pur e alcohol) [facility] Utilities Answer Date Recorded In the past 12 months has [employer], gas, oil, or water [employer] threatened to shut off services in your [...] any time in the past 12 m [facility], were you homeless or living in a [...] or Self Care documented in this encounter Plan of Treatment Upcoming Encounters Date Type Department Care Team (Late st Contact Info) Description 04/02/2024 10:30 EDT Appointment [facility] Interventional Radiology Unit [address] [place] [address] 04/02/2024 15:15 EDT Office Visit [facility] Surgical Oncology - [address] [phone] Adolfo Carreno MD [address] [place] [address] [phone] 04/05/2024 9:30 EDT Telemedicine [facility] Palliative Care Services [address] [place] [address] 7[address] Chichi Woods MD [address] [place] [address] [phone] 04/11/2024 15:00 EDT Telemedicine [facility] Hematology & Oncology - [address] [phone] Alisson Carreon MD [address] [place] [address] [phone] 04/13/2024 13:30 EDT Appointment [facility] Hematology & Oncology - [address] [phone] 04/13/2024 14:00 EDT Appointment [facility] Hematology & Oncology - [address] [phone] 04/16/2024 10:00 EST Telemedicine [facility] Palliative Care Services [address] [place] [address] 345211 Chichi Woods MD [address] [place] [address] [phone] 04/24/2024 9:00 EST Appointment [facility] Radiology CT Outpatient - [address] [address] 04/24/2024 11:00 EST Appointment [facility] Breast Imaging - [facility] [place] [address] [place] [address] 04/27/2024 12:00 EST Appointment [facility] Hematology & Oncology - [address] [address] 05/02/2024 15:00 EST Telemedicine [facility] Hematology & Oncology - [address] [address] Alisson Carreon MD [address] [place] [address], Level 2 [place] [phone] 05/04/2024 10:15 EST Ancillary Procedure [facility] Cardiology - [place] [address] 05/04/2024 11:30 EST Appointment [facility] Hematology & Oncology [address] 745311 05/04/2024 12:00 EST Appointment [facility] Hematology & Oncology [address] 071071 06/12/2024 13:00 EST Appointment [facility] Radiology CT - [address] 616001 documented as of this encounter Procedures Procedure Name Priority Date/Time Associated Diagnosis Comments BASIC METABOLIC PANEL (BMP) Routine 03/01/2024 15:56 EDT Other ascites documented in this encounter Results * (ABNORMAL) BASIC METABOLIC PANEL (BMP) (03/01/2024 15:56 EDT) Sodium 133(L) 136 - 145 mmol/L 03/01/2024 16:39 EDT [facility] Potassium 3.8 3.5 - 5.1 mmol/L 03/01/2024 16:39 EDT [facility] Chloride 96 96 - 107 mmol/L 03/01/2024 16:39 EDT [facility] CO2 Total 32 21 - 32 mmol/L 03/01/2024 16:39 EDT [facility] Anion Gap 5 5 - 14 mmol/L 03/01/2024 16:39 EDT [facility] Glucose 142(H) 70 - 99 mg/dl 03/01/2024 16:39 EDT [facility] Calcium 9.6 8.5 - 10.1 mg/dL 03/01/2024 16:39 T [facility] BUN 19 7 - 25 mg/dL 03/01/2024 16:39 [facility] Creatinine 0.94 0.55 - 1.02 mg/dL 03/01/2024 16:39 [facility] eGFR 69 >60 mL/min/1.73 m2 03/01/2024 16:39 T [facility] Blood VENOUS BLOOD / Unknown Venipuncture / Unknown 03/01/2024 15:56 EDT 03/01/2024 16:03 EDT Hugo Vergara MD PhD CHEMISTRY & BLO OD GAS ORDERABLES Performing Organization Address City/State/[facility] Co de Phone Number [facility] [address] [place] [address] documented in this encounter Visit Diagnoses Diagnosis Other ascites documented in this encounter Care Teams Coal Trammer Relationship Specialty Start Date End Date Linda Blancas MD [facility] [address] [place] [address] PCP - General 01/06/11 Adolfo Carreno MD [address] [place] [address], [facility] 2 [place] [phone] General Surgery 04/26/19 documented as of this encounter
--- OUTSIDE RECORDS SUMMARY | 2024-03-20 14:32 | XMS_ITS | Encounter Summary ---
Author Organization [facility] Address [address] [place] [address] Care Team Providers Care Wholesale Manager Name Role Phone Linda Blancas MD Primary Care Provider Adolfo Carreno MD Unavailable [phone] Reason for Referral * Radiology Services (Routine/Next Available) - Authorization Not Required Specialty Diagnoses / Procedures Referred By Contac t Referred To Contact Diagnoses Primary malignant neoplasm of breast with metastasis (HCC-CMS) Procedures CT ABDOMEN PELVIS W CONTRAST Augustina Colin MD PhD [facility] Referral ID Status Reason Start Date Expiration Date Visits Requested Visits Authorized [id number] Authorization Not Required 11/09/2023 1 1 * Radiology Services (Routine/Next Available) - Authorization Not Required Specialty Diagnoses / Procedures Referred By Contac t Referred To Contact Diagnoses Primary malignant neoplasm of breast with metastasis (HCC-CMS) Procedures CT CHEST W CONTRAST Augustina Colin MD PhD [facility] Referral ID Status Reason Start Date Expiration Date Visits Requested Visits Authorized [id number] Authorization Not Required 11/09/2023 1 1 Reason for Visit * Radiology Services (Routine/Next Available) - Authorization Not Required Specialty Diagnoses / Procedures Referred By Contac t Referred To Contact Diagnoses Primary malignant neoplasm of breast with metastasis (HCC-CMS) Procedures CT ABDOMEN PELVIS W CONTRAST Augustina Colin MD PhD [facility] Referral ID Status Reason Start Date Expiration Date Visits Requested Visits Authorized [id number] Authorization Not Required 11/09/2023 1 1 Encounter Details Date Type Department Care Team (Latest Contact Info) Description 03/13/2024 7:56 EDT - 03/13/2024 14:52 EDT [facility] - [address] [address] Primary malignant neoplasm of breast with metastasis (HCC-CMS) Discharge Disposition: Home or Self Care Social History Tobacco Use Types Packs/Day Years Used Date Smoking Tobacco: Never Passive Smoke Exposure: Never Smokeless Tobacco: Never Alcohol Use Standard Drinks/Week Comments Not Currently 1 (1 standard drink = 0.6 oz pur e alcohol) [facility] Utilities Answer Date Recorded In the [...] any time in the past 12 m [facility], were you homeless or living [...] 1 01/26/2024 mirtazapine (REMERON) 7.5 mg tabletIndications:Alejandro nant neoplasm of right female breast, unspecified estrogen [...] Contact Info) Description 04/02/2024 10:30 EDT Appointment [facility] Interventional Radiology Unit [address] [place] [address] 04/02/2024 15:15 EDT Office Visit [facility] Surgical Oncology - [address] 022811 Adolfo Carreno MD [address] [place] [address] 2 [place] [phone] 04/05/2024 9:30 EDT Telemedicine [facility] Palliative Care Services [address] [place] [address] 348651 Chichi Woods MD [address] [place] [address] [phone] 04/11/2024 15:00 EDT Telemedicine [facility] Hematology & Oncology - [address] [address] Alisson Carreon MD [address] [place] [address] 2 [place] [phone] 04/13/2024 13:30 EDT Appointment [facility] Hematology & Oncology - [address] [phone] 04/13/2024 14:00 EDT Appointment [facility] Hematology & Oncology - [address] [address] 04/16/2024 10:00 EST Telemedicine [facility] Palliative Care Services [address] [place] [address] 928771 Chichi Woods MD [address] [place] [address] [phone] 04/24/2024 9:00 EST Appointment [facility] Radiology CT Outpatient - [address] 814341 04/24/2024 11:00 EST Appointment [facility] Breast Imaging - [facility] S [place] [address] [place] [address] 04/27/2024 12:00 EST Appointment [facility] Hematology & Oncology [address] [address] 05/02/2024 15:00 EST Telemedicine [facility] Hematology & Oncology [address] 247671 Alisson Carreon MD [address] [place] [address], Level 2 [place] [phone] 05/04/2024 10:15 EST Ancillary Procedure [facility] Cardiology - [place] [address] 05/04/2024 11:30 EST Appointment [facility] Hematology & Oncology - [address] [address] 05/04/2024 12:00 EST Appointment [facility] Hematology & Oncology [address] [phone] 06/12/2024 13:00 EST Appointment [facility] Radiology CT - [address] 019231 documented as of this encounter Procedures Procedure Name Priority Date/Time Associated Diagnosis Comments CT CHEST W CONTRAST Routine 03/13/2024 8:26 EDT Primary malignant neoplasm of breast with metastasis (HCC-CMS) CT ABDOMEN PELVIS W CONTRAST Routine 03/13/2024 8:26 EDT Primary malignant neoplasm of breast with metastasis (HCC-CMS) documented in this encounter Results * CT ABDOMEN PELVIS W CONTRAST (03/13/2024 [...] 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 [id number] Narrative 03/13/2024 16:[address] ABDOMEN PELVIS [...] No new suspicious osseous lesions are present. Hospitality Host: No additional findings. Resulting Agency Comment [id number] Procedure Note Tylor Melendez MD - 03/13/2024 [...] unchanged. No newsuspicious osseous lesions are present. Hospitality Host: No additional findings. IMPRESSION Stable to slight decrease in size and diminished enhancement of numeroushepatic metastases. 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 Interval decrease in volume of ascites. Interval decrease in conspicuity of mucosal hyperenhancement of the smallbowel which could be explained by infectious enteritis or be medicationrelated. Cholelithiasis without cholecystitis. 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 [id number] Augustina Colin MD PhD IMG CT ORDERABLES * CT CHEST W CONTRAST (03/13/2024 8:26 [...] above interpretation and agree with the findings. [id number] Narrative 03/13/2024 11:[address] CHEST W [...] Old bilateral rib fractures. Resulting Agency Comment [id number] Procedure Note Mallorie Andrews MD - 03/13/2024 CT CHEST W CONTRAST 03/13/2024 8:08 AM Clinical History/Comments: metastatic BC. History of PJP pneumonia and pneumonitis. Technique: CT scan of the chest with intravenous contrast material was performed. This CT used either dose modulation and/or iterative reconstructiontechniques to lower radiation dose. Comparison: Chest CT studies 01/05/2024 and 02/07/2024. Concurrent CT abdomen [id number]/13/2024. Findings: Lower neck: Right jugular approach chest [...] the above interpretation andagree with the findings. [id number] Augustina Colin MD PhD IMG CT ORDERABLES documented in this encounter Visit Diagnoses Diagnosis Primary malignant neoplasm of breast with metastasis (HCC-CMS) documented in this encounter Administered Medications Inactive Administered Medications - up to 3 most recent administrations Medication Order MAR Action Action Date Dose Rate Site iohexoL (OMNIPAQUE 350) solution 100 mL 100 mL, intravenous, Once in imaging, 1 dose, Starting on Tu03/13/24 at 0808, Until Tue03/13/24 at 0827, Routine, Imaging Protocol Orders Given 03/13/2024 8:27 EDT 94 mL documented in this encounter Orders Medications Ordered That Vj ht Not Have Been Administered Count Last Ordered Date First Ordered Date iohexoL (OMNIPAQUE 350) solution 100 mL 1 1 documented in this encounter Care Teams Wholesale Manager Relationship Specialty Start Date End Date Linda Blancas MD [address] [place] [address] PCP - General 01/06/11 Adolfo Carreno MD [address] [facility], Level 2 [place] [phone] General Surgery 04/26/19 documented as of this encounter
--- OUTSIDE RECORDS SUMMARY | 2024-03-20 14:32 | XMS_ITS | Encounter Summary ---
Author Organization [facility] Address [address] [place] [address] Care Team Providers Care Gas Plumber Name Role Phone Linda Blancas MD Primary Care Provider [phone] Adolfo Carreno MD Unavailable [phone] Reason for Visit * Reason Onset Date Comments Social Work 02/22/2024 support Encounter Details Date Type Department Care Team (Late st Contact Info) Description 02/22/2024 Telephone [facility] - [facility] [address] [place], [place] [address] Trinh Posey Social Work (support) Social History Tobacco Use Types Packs/Day Years Used Date Smoking Tobacco: Never Passive Smoke Exposure: Never Smokeless Tobacco: Never Alcohol Use Standard Drinks/Week Comments Not Currently 1 (1 standard drink = 0.6 oz pur e alcohol) [facility] Utilities Answer Date Recorded In the past 12 months has e [employer], gas, oil, or water [employer] threatened to shut off services in your [...] * Telephone Encounter - Trinh Posey - 02/22/2024 7738 EDT Last week, pt and I discussed a weekly check in and I would send her a weekly (check in) message inMyChart. Message sent via [employer]: Joe Kaba, Just checking in to see how you're doing and if I can help with anything. I see that you had a f/u telemedicine appointment with Dr. Carreon yesterday and the plan is to postpone PFT's and treatment until your lungs/covid symptoms improve. I did mail you and Nitish a list of our support groups (as discussed last week). You should receive this by end of the week. Trinh Barcenas documented in this encounter Plan of Treatment Upcoming Encounters Date Type Department Care Team (Late st Contact Info) Description 04/02/2024 10:30 EDT Appointment [facility] Interventional Radiology Unit [address] [place] [address] [phone] 04/02/2024 15:15 EDT Office Visit [facility] Surgical Oncology - [address] [phone] Adolfo Carreno MD [address] [place] [address] 2 [place] [phone] 04/05/2024 9:30 EDT Telemedicine [facility] Palliative Care Services [address] [place], [place] [phone] Chichi Woods MD [address] [place] [address] [phone] 04/11/2024 15:00 EDT Telemedicine [facility] Hematology & Oncology - [address] [phone] Alisson Carreon MD [address] [place] [address], [facility] 2 [place] [phone] 04/13/2024 13:30 EDT Appointment [facility] Hematology & Oncology - [address] [phone] 04/13/2024 14:00 EDT Appointment [facility] Hematology & Oncology [address] 124201 04/16/2024 10:00 EST Telemedicine [facility] - [facility] Palliative Care Services [address] [place] [address] [phone] Chichi Woods MD [address] [place] [address], [address] [phone] 04/24/2024 9:00 EST Appointment [facility] Radiology CT Outpatient - [address] [id number] 04/24/2024 11:00 EST Appointment [facility] Breast Imaging - [facility] [address] 639171 04/27/2024 12:00 EST Appointment [facility] Hematology & Oncology [address] 676191 05/02/2024 15:00 EST Telemedicine [facility] Hematology & Oncology [address] 488281 Alisson Carreon MD [address] [place] [address], Level [address] [place] [phone] 05/04/2024 10:15 EST Ancillary Procedure [facility] Cardiology [place] [address] 05/04/2024 11:30 EST Appointment [facility] Hematology & Oncology [address] [phone] 05/04/2024 12:00 EST Appointment [facility] Hematology & Oncology - [address] [address] 06/12/2024 13:00 [facility] Radiology CT - [facility] [address] [place], [place] 833491 documented as of this encounter Visit Diagnoses Not on filedocumented in this encounter Care Teams Gas Plumber Relationship Specialty Start Date End Date Linda Blancas MD [facility] [address] [place] [address] PCP - General 01/06/11 Adolfo Carreno MD [address] [facility], Level [address] [place] [phone] General Surgery 04/26/19 documented as of this encounter
--- OUTSIDE RECORDS SUMMARY | 2024-03-20 14:33 | XMS_ITS | Encounter Summary ---
Author Organization [facility] Address [address] [place] [address] Care Team Providers Care Flight Test Supervisor Name Role Phone Linda Blancas MD Primary Care Provider Adolfo Carreno MD Unavailable [phone] Encounter Details Date Type Department Care Team (Late st Contact Info) Description 02/15/2024 Orders Only [facility] Hematology & Oncology - [address] [phone] Alisson Carreon MD [address] [facility], Level [address] [place] [phone] Malignant neoplasm of right female breast, unspecified estrogen receptor status, unspecified site of breast (HCC-CMS) (Primary Dx) Social History Tobacco Use Types Packs/Day Years Used Date Smoking Tobacco: Never Passive Smoke Exposure: Never Smokeless Tobacco: Never Alcohol Use Standard Drinks/Week Comments Not Currently 1 (1 standard drink = 0.6 oz pur e alcohol) [facility] Utilities Answer Date Recorded In the [...] Appointment [facility] Interventional Radiology Unit [address] [place] [address] 837471 04/02/2024 15:15 EDT Office Visit [facility] Surgical Oncology - [address] 184861 Adolfo Carreno MD [address] [place] [address] [phone] 04/05/2024 9:30 EDT Telemedicine [facility] [address] [place] [address] [phone] Chichi Woods MD [address] [place] [address] [phone] 04/11/2024 15:00 EDT Telemedicine [facility] Hematology & Oncology [address] 399181 Alisson Carreon MD [address] [place] [address] [phone] 04/13/2024 13:30 EDT Appointment [facility] Hematology & Oncology [address] [phone] 04/13/2024 14:00 EDT Appointment [facility] Hematology & Oncology [address] [phone] 04/16/2024 10:00 EST Telemedicine [facility] [address] [place] [address] [phone] Chichi Woods MD [address] [place], [place] [address], [place] [phone] 04/24/2024 9:00 EST Appointment [facility] Radiology CT Outpatient - [address] [phone] 04/24/2024 11:00 EST Appointment [facility] Breast Imaging - [facility] S [place] 1 [place], [place] [address]751 04/27/2024 12:00 EST Appointment [facility] Hematology & Oncology [address] 511171 05/02/2024 15:00 EST Telemedicine [facility] Hematology & Oncology [address] 890261 Alisson Carreon MD [address] [place] [address], Level [address] [place] [phone] 05/04/2024 10:15 EST Ancillary Procedure [facility] Cardiology - [place] [address] 05/04/2024 11:30 EST Appointment [facility] Hematology & Oncology [address] 194581 05/04/2024 12:00 EST Appointment [facility] Hematology & Oncology - [address] 370781 06/12/2024 13:00 EST Appointment [facility] Radiology CT - [address] [phone] documented as of this encounter Visit Diagnoses Diagnosis Malignant neoplasm of right female breast, unspecified estrogen receptor status, unspecified site of breast (HCC-CMS)- Primary documented in this encounter Orders Appointment Requests Count Last Ordered Date Fi rst Ordered Date ONCBCN CLINIC APPOINTMENT REQUEST 4 024 ONCBCN INFUSION APPOINTMENT REQUEST - CALCULATED 02/15/2024 documented in this encounter Care Teams Flight Test Supervisor Relationship Specialty Start Date End Date Linda Blancas MD [facility] [address] [place] [address] PCP - General 01/06/11 Adolfo Carreno MD [address] [place] [address], [facility] 2 [place] [phone] General Surgery 04/26/19 documented as of this encounter
--- OUTSIDE RECORDS SUMMARY | 2024-03-20 14:33 | XMS_ITS | Encounter Summary ---
Author Organization [facility] Address [address] [place] [address] Care Team Providers Care Humanities Coordinator Name Role Phone Linda Blancas MD Primary Care Provider [phone] Adolfo Carreno MD Unavailable [phone] Reason for Visit * Reason Onset Date Comments Social Work 02/10/2024 support Encounter Details Date Type Department Care Team (Late st Contact Info) Description 02/10/2024 Telephone [facility] Cancer Center Hematology & Oncology - [facility] [address] [place], [place] [phone] Trinh Posey Social Work (support) Social History Tobacco Use Types Packs/Day Years Used Date Smoking Tobacco: Never Passive Smoke Exposure: Never Smokeless Tobacco: Never Alcohol Use Standard Drinks/Week Comments Not Currently 1 (1 standard drink = 0.6 oz pur e alcohol) [facility] Utilities Answer Date Recorded In the past 12 months has e [employer], gas, oil, or water [employer] threatened to shut off services in your [...] * Telephone Encounter - Trinh Posey - 02/10/2024 1202 EDT Trinh Calderon, Deputy Court here and I'm just checking in. I received a message from [facility] [employer] that Nitish had spoken with them about some issues you had with your recent hospital discharge. At that time, sounds like he asked if there was someone who could support the two of you around your treatment needs/concerns. I'm happy to help anyway that I can and just left you a voicemail with my call back #. If you or Nitish would like to call me back I'm in the office M-F 8am-4:30pm (clinic is closed this Tuesday for ). Hope to hear back from you. Trinh Barcenas [phone] documented in this encounter Plan of Treatment Upcoming Encounters Date Type Department Care Team (Late st Contact Info) Description 04/02/2024 10:30 EDT Appointment [facility] Interventional Radiology Unit [address] [place] [address] [phone] 04/02/2024 15:15 EDT Office Visit [facility] Surgical Oncology - [address] [phone] Adolfo Carreno MD [address] [place] [address] [phone] 04/05/2024 9:30 EDT Telemedicine [facility] - [facility] Palliative Care Services [address] [place] [address] [phone] Chichi Woods MD [address] [place] [address] [phone] 04/11/2024 15:00 EDT Telemedicine [facility] Hematology & Oncology [address] [phone] Alisson Carreon MD [address] [place] [address] [phone] 04/13/2024 13:30 EDT Appointment [facility] Hematology & Oncology - [address] [phone] 04/13/2024 14:00 EDT Appointment [facility] Hematology & Oncology - [address] [phone] 04/16/2024 10:00 EST Telemedicine [facility] - [facility] Palliative Care Services [address] [place] [address] [phone] Chichi Woods MD [address] [place] [address] [phone] 04/24/2024 9:00 EST Appointment [facility] Radiology CT Outpatient - [address] [address] 04/24/2024 11:00 EST Appointment [facility] Breast Imaging - [facility] [address] [place] [address] [place], [place] [phone] 04/27/2024 12:00 EST Appointment [facility] Hematology & Oncology - [address] [phone] 05/02/2024 15:00 EST Telemedicine [facility] Hematology & Oncology - [address] [address] Alisson Carreon MD [address] [place] [address], Level 2 [place] [phone] 05/04/2024 10:15 EST Ancillary Procedure [facility] Cardiology [place] [address] [place] [address] 05/04/2024 11:30 EST Appointment [facility] Hematology & Oncology - [address] [phone] 05/04/2024 12:00 EST Appointment [facility] Cancer Center Hematology & Oncology - [address] [phone] 06/12/2024 13:00 EST [facility]ment [facility] Radiology CT - [address] [address] documented as of this encounter Visit Diagnoses Not on filedocumented in this encounter Care Teams Humanities Coordinator Relationship Specialty Start Date End Date Linda Blancas MD [facility] [address] [place] [address] PCP - General 01/06/11 Adolfo Carreno MD [address] [place] [address], [facility], Level [address] [place] [phone] General Surgery 04/26/19 documented as of this encounter
--- OUTSIDE RECORDS SUMMARY | 2024-03-20 14:33 | XMS_ITS | Encounter Summary ---
Author Organization [facility] Address [address] [place] [address] Care Team Providers Care Tile Applicator Name Role Phone Linda Blancas MD Primary Care Provider [phone] Adolfo Carreno MD Unavailable [phone] Encounter Details Date Type Department Care Team (Late st Contact Info) Description 02/07/2024 Orders Only [facility] Cancer Center Hematology & Oncology - [address] [phone] Alisson Carreon MD [address] [facility], Level 2 [place] [phone] Malignant neoplasm of right female breast, unspecified estrogen receptor status, unspecified site of breast ([facility]) Social History Tobacco Use Types Packs/Day Years Used Date Smoking Tobacco: Never Passive Smoke Exposure: Never Smokeless Tobacco: Never Alcohol Use Standard Drinks/Week Comments Not Currently 1 (1 standard drink = 0.6 oz pur e alcohol) [facility] Utilities Answer Date Recorded In the past 12 months has [employer] electric, gas, oil, or water company threatened [...] any time in the past 12 m [facility], were you homeless or living [...] Contact Info) Description 04/02/2024 10:30 EDT Appointment [facility] Interventional Radiology Unit [address] [place] [address] [phone] 04/02/2024 15:15 EDT Office Visit [facility] Surgical Oncology - [address] [phone] Adolfo Carreno MD [address] [place] [address] [phone] 04/05/2024 9:30 EDT Telemedicine [facility] Palliative Care Services [address] [place] [address] [phone] Chichi Woods MD [address] [place] [address] [phone] 04/11/2024 15:00 EDT Telemedicine [facility] Hematology & Oncology - [address] [phone] Alisson Carreon MD [address] [place] [address] [phone] 04/13/2024 13:30 EDT Appointment [facility] Hematology & Oncology [address] [phone] 04/13/2024 14:00 EDT Appointment [facility] Hematology & Oncology [address] 224341 04/16/2024 10:00 EST Telemedicine [facility] Palliative Care Services [address] [place] [address] [phone] Chichi Woods MD [address] [place] [address] [phone] 04/24/2024 9:00 EST Appointment [facility] Radiology CT Outpatient - [address] [phone] 04/24/2024 11:00 EST Appointment [facility] Breast Imaging - [facility] S [place] [address] [place], [place] 240421 04/27/2024 12:00 EST Appointment [facility] Hematology & Oncology - [address] [phone] 05/02/2024 15:00 EST Telemedicine [facility] Hematology & Oncology [address] [phone] Alisson Carreon MD [address] [place] [address], [address] [place] [phone] 05/04/2024 10:15 EST Ancillary Procedure [facility] Cardiology - [place] [address] 05/04/2024 11:30 EST Appointment [facility] Hematology & Oncology [address] [phone] 05/04/2024 12:00 EST Appointment [facility] Hematology & Oncology [address] [phone] 06/12/2024 13:00 EST Appointment [facility] Radiology CT - [address] [phone] documented as of this encounter Procedures Procedure Name Priority Date/Time Associated Diagnosis Comments MISCELLANEOUS TEST, NON RYDER Routine 02/07/2024 17:55 EDT Malignant neoplasm of right female breast, unspecified estrogen receptor status, unspecified site of breast ([facility]) documented in this encounter Results * MISCELLANEOUS TEST, NON SOLER (02/07/2024 17:55 EDT) Test Name Michael 360 CCx 02/20/2024 9:52 EDT [facility] Blood VENOUS BLOOD / Unknown Venipuncture / Unknown 02/07/2024 17:55 EDT 02/07/2024 17:55 EDT Narrative [facility] - 02/20/2024 9:52 EDT See scanned/supplementary report. Alisson Carreon MD CHEMISTRY & BLOOD G ORDERABLES [facility] [address] [place], [place] [phone] documented in this encounter Visit Diagnoses Diagnosis Malignant neoplasm of right female breast, unspecified estrogen receptor status, unspecified site of breast ([facility]) documented in this encounter Care Teams Tile Applicator Relationship Specialty Start Date End Date Linda Blancas MD [facility] [address] [place] [address] PCP - General 01/06/11 Adolfo Carreno MD [address] [place] [address], [facility] [address] [place] [phone] General Surgery 04/26/19 documented as of this encounter
--- OUTSIDE RECORDS SUMMARY | 2024-03-20 14:33 | XMS_ITS | Encounter Summary ---
Author Organization [facility] Address [address] [place] [address] Care Team Providers Care Agricultural Research Technologist Name Role Phone Linda Blancas MD Primary Care Provider [phone] Adolfo Carreno MD Unavailable Encounter Details Date Type Department Care Team (Latest Contact Info) Description 02/07/2024 15:15 EDT - 02/07/2024 23:59 EDT Hospital Encounter [facility] Cancer Center Hematology & Oncology - [facility] [address] [place], [place] 986[address] Malignant neoplasm of right female breast, unspecified [...] drink = 0.6 oz pur e alcohol) [facility] Utilities Answer Date Recorded In the past 12 months has e electric, gas, oil, or water [employer] threatened to shut off services in your [...] any time in the past 12 m [facility], were you homeless or living in a [...] Sig Dispensed Refills Start Date End Date calcium-vitamin D (OS-CHAR D) 500 mg(1,250mg) -200 unit per tablet Take 1 Tablet by mouth 2 times daily with breakfast and dinner. cholecalciferol, Vitamin D3, 25 mcg (1,000 unit) tablet Take 1 Tablet by mouth daily. cyclobenzaprine (FLEXERIL) 10 mg tabletIndications:Mal ignant neoplasm of right female breast, unspecified estrogen receptor status, unspecified site of breast (HCC-CMS) Take 1 Tablet by mouth 2 times daily as needed for Muscle Spasms. 60 Tablet 1 01/19/2024 furosemide (LASIX) 20 mg tablet Take 2 Tablets by mouth daily. 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 90 Each 01/18/2024 MULTIVITS W-CA,FE,OTHER MIN (WOMEN'S DAILY FORMULA ORAL) Take by mouth daily. naloxone (NARCAN) 4 mg/actuation nasal spray 0.1 mL by nasal route as needed for up to 2 doses for Opioid Reversal. 2 Each 01/19/2024 omeprazole (PRILOSEC) 40 mg capsuleIndications:Ga stroesophageal reflux disease, unspecified whether esophagitis present Take 1 Capsule by mouth 2 times daily. 60 Capsule 11 11/23/2023 RED YEAST RICE EXTRACT ORAL Take 1,200 mg by mouth daily. 600mg 2x a day valACYclovir (VALTREX) 500 mg tablet Take 1 Tab by mouth daily. 90 Tab 3 08/16/2012 venlafaxine (EFFEXOR-XR) 75 mg XR capsuleIndications:Pr imary malignant neoplasm of breast with metastasis (HCC-CMS) Take 1 Capsule by mouth daily for 360 days. 30 Capsule 11 01/06/2024 12/31/2024 apixaban (ELIQUIS) 5 mg tabletIndications:Ani geoffrey malignant neoplasm of breast with metastasis (HCC-CMS) Take 1 Tablet by mouth 2 times daily. 60 Tablet 11 12/07/2023 03/13/2024 atovaquone (MEPRON) 750 mg/5 mL suspension Take 10 mL by mouth every 24 hours for 30 days. 300 mL 01/12/2024 02/15/2024 gabapentin (NEURONTIN) 100 mg capsule Take 2 Capsules by mouth 3 times daily for 30 days. 180 Capsule 01/18/2024 02/17/2024 HYDROmorphone (DILAUDID) 2 mg tablet Take 1 Tablet by mouth at bedtime as needed for up to 30 days for Pain (muscle cramps). Daily Max: 2 mg 30 Tablet 01/19/2024 02/18/2024 prochlorperazine (COMPAZINE) 10 mg tabletIndications:Ani geoffrey malignant neoplasm of breast with metastasis (HCC-CMS) Take 1 Tablet by mouth every 6 hours as needed for Nausea. 30 Tablet 5 10/17/2023 02/15/2024 spironolactone (ALDACTONE) 100 mg tablet Take 1 Tablet by mouth daily for 30 days. 30 Tablet 01/20/2024 02/19/2024 documented as of this encounter Discharge Disposition Disposition Code Departure Means Destination Home or Self Care documented in this encounter Plan of Treatment Upcoming Encounters Date Type Department Care Team (Late st Contact Info) Description 04/02/2024 10:30 EDT Appointment [facility] Interventional Radiology Unit [address] [place] [address] 04/02/2024 15:15 EDT Office Visit [facility] Surgical Oncology - [address] [phone] Adolfo Carreno MD 111 [facility], Level [address] [place] [phone] 04/05/2024 9:30 EDT Telemedicine [facility] - [facility] Palliative Care Services [address] [place], [place] [phone] Chichi Woods MD 111 [facility], [address] [phone] 04/11/2024 15:00 EDT Telemedicine [facility] Hematology & Oncology - [address] [phone] Alisson Carreon MD [address] [place] [address], [facility] 2 [place] [phone] 04/13/2024 13:30 EDT Appointment [facility] Hematology & Oncology - [address] [phone] 04/13/2024 14:00 EDT Appointment [facility] Hematology & Oncology [address] [phone] 04/16/2024 10:00 EST Telemedicine [facility] - [facility] Palliative Care Services [address] [place] [address] Chichi Woods MD [address] [place] [address], [address] [phone] 04/24/2024 9:00 EST Appointment [facility] Radiology CT Outpatient - [address] [phone] 04/24/2024 11:00 EST Appointment [facility] Breast Imaging - [address] 157191 04/27/2024 12:00 EST Appointment [facility] Hematology & Oncology - [address] [phone] 05/02/2024 15:00 EST Telemedicine [facility] Hematology & Oncology - [address] [phone] Alisson Carreon MD [address] [place] [address], [facility] [address] [place] [phone] 05/04/2024 10:15 EST Ancillary Procedure [facility] Cardiology - [place] [place] [address] 05/04/2024 11:30 EST Appointment [facility] Hematology & Oncology - [address] [address] 05/04/2024 12:00 EST Appointment [facility] Hematology & Oncology - [address] [phone] 06/12/2024 13:00 EST Appointment [facility] Radiology CT - [address] [phone] documented as of this encounter Procedures Procedure Name Priority Date/Time Associated Diagnosis Comments COMPREHENSIVE METABOLIC PANEL (ONCOLOGY USE ONLY-INC MG) STAT 02/07/2024 15:20 EDT Primary malignant neoplasm of breast with metastasis (HCC-CMS) CA 27.29 STAT 02/07/2024 15:20 EDT Malignant neoplasm of right female breast, unspecified estrogen receptor status, unspecified site of breast (HCC-CMS) COMPLETE BLOOD COUNT AND DIFFERENTIAL STAT 02/07/2024 15:20 EDT Primary malignant neoplasm of breast with metastasis (HCC-CMS) PHOSPHORUS STAT 02/07/2024 15:20 EDT Malignant neoplasm of right female breast, unspecified estrogen receptor status, unspecified site of breast (HCC-CMS) documented in this encounter Results * PHOSPHORUS (02/07/2024 15:20 EDT) Phosphorus 3.5 2.5 - 4.5 mg/dL 02/07/2024 15:55 EDT [facility] Blood BLOOD SAMPLE TAKEN FROM CENTRAL LINE / Unknown Port / Unknown 02/07/2024 15:20 EDT 02/07/2024 15:28 EDT Alisson Carreon MD CHEMISTRY & BLOOD G ORDERABLES [facility] [address] [place] [address] * (ABNORMAL) COMPREHENSIVE METABOLIC PANEL (ONCOLOGY USE ONLY-INC MG) (02/07/2024 15:20 EDT) Sodium 132(L) 136 - 145 mmol/L 02/07/2024 15:55 [facility] Potassium 4.1 3.5 - 5.0 mmol/L 02/07/2024 15:55 [facility] Chloride 96 96 - 110 mmol/L 02/07/2024 15:55 [facility] CO2 Total 27 22 - 32 mmol/L 02/07/2024 15:55 [facility] Glucose 93 70 - 99 mg/dl 02/07/2024 15:55 [facility] BUN 18 10 - 26 mg/dL 02/07/2024 15:55 [facility] Creatinine 0.62 0.52 - 1.04 mg/dL 02/07/2024 15:55 [facility] eGFR 101 >60 mL/min/1.7 3m2 02/07/2024 15:55 [facility] Total Protein 6.1(L) 6.3 - 8.2 g/dL 02/07/2024 15:55 [facility] Albumin 2.8(L) 3.4 - 4.9 g/dL 02/07/2024 15:55 [facility] Alkaline Phosphatase 458(H) 38 - 126 U/L 02/07/2024 15:55 [facility] AST 44 15 - 46 U/L 02/07/2024 15:55 [facility] ALT 40(H) <35 U/L 02/07/2024 15:55 [facility] Bilirubin, Total 1.9(H) <1.4 mg/dL 02/07/20 15:55 [facility] Calcium 8.5 8.5 - 10.5 mg/dL 02/07/2024 15:55 [facility] Magnesium 2.1 1.7 - 2.8 mg/dL 02/07/2024 15:55 [facility] Albumin/Globulin Ratio 0.8(L) 1.0 - 2.5 02/07/2024 15:55 [facility] Anion Gap 9 5 - 14 mmol/L 02/07/2024 15:55 [facility] Blood BLOOD SAMPLE TAKEN FROM CENTRAL LINE / Unknown Port / Unknown 02/07/2024 15:20 EDT 02/07/2024 15:28 EDT Augustina Colin MD PhD CHEMISTRY & BLOOD GA S ORDERABLES [facility] [address] [place] [address] * (ABNORMAL) COMPLETE BLOOD COUNT AND DIFFERENTIAL (02/07/2024 15:20 EDT) WBC 8.88 4.00 - 12.40 K/cmm 02/07/2024 15:45 [facility] RBC 2.83(L) 3.86 - 5.04 M/cmm 02/07/2024 15:45 [facility] Hemoglobin 10.4(L) 11.6 - 15.2 g/dL 02/07/2024 15:45 [facility] HCT 31.1(L) 34.9 - 44.4 % 02/07/2024 15:45 [facility] MCV 110(H) 81 - 98 fL 02/07/2024 15:45 [facility] MCH 36.7(H) 26.7 - 33.3 pg 02/07/2024 15:45 [facility] MCHC 33.4 32.1 - 35.9 g/dL 02/07/2024 15:45 [facility] RDW-CV 16.4(H) <14.7 % 02/07/2024 15:45 [facility] RDW-SD 67.4(H) <50.4 fl 02/07/2024 15:45 [facility] PLT 180 141 - 377 K/cmm 02/07/2024 15:45 [facility] MPV 10.5 9.5 - 12.7 fL 02/07/2024 15:45 [facility] % Neutrophils 70.0 % 02/07/2024 15:45 [facility] % Lymphocytes 13.4 % 02/07/2024 15:45 [facility] % Monocytes 13.4 % 02/07/2024 15:45 [facility] % Eosinophils 1.7 % 02/07/2024 15:45 [facility] % Basophils 0.5 % 02/07/2024 15:45 [facility] % Immature Grans 1.0 % 02/07/20 15:45 [facility] Absolute Neutrophils 6.22 2.20 - 8.85 K/cmm 02/07/2024 15:45 [facility] Absolute Lymphocytes 1.19 1.09 - 3.30 K/cmm 02/07/2024 15:45 [facility] Absolute Monocytes 1.19(H) 0.10 - 0.80 K/cmm 02/07/2024 15:45 [facility] Absolute Eosinophils 0.15 0.03 - 0.61 K/cmm 02/07/2024 15:45 [facility] ABS Basophils 0.04 0.01 - 0.11 K/cmm 02/07/2024 15:45 [facility] Absolute Immature Grans 0.09(H) 0.00 - 0.06 K/cmm 02/07/2024 15:45 [facility] Type of Differential: Auto 02/07/2024 15:45 [facility] Blood BLOOD SAMPLE TAKEN FROM CENTRAL LINE / Unknown Port / Unknown 02/07/2024 15:20 EDT 02/07/2024 15:28 EDT Augustina Colin MD PhD PACKAGES & DNA PROBE ORDERABLES Performing Organization Address [facility]/ZIP Co de Phone Number [facility] [address] [place], [place] [address] * (ABNORMAL) CA 27.29 (02/07/2024 15:20 EDT) CA 27.29 120.6(H) <38.0 U/mL 02/08/2024 11:03 EDT [facility] Comment: NOTE: Serum CA 27.29 concentration should not be interpreted as absolute evidence for the presence or absence of malignant disease. Assayed on Siemens [employer] Acacia Livingaur XPT using chemiluminescent technology. ??Values obtained by using different assay methods cannot be used interchangeably. Blood BLOOD SAMPLE TAKEN FROM CENTRAL LINE / Unknown Port / Unknown 02/07/2024 15:20 EDT 02/07/2024 15:28 EDT Augustina Colin MD PhD CHEMISTRY & BLOOD GA S ORDERABLES Performing Organization Address [facility] Co de Phone Number [facility] [address] [place], [place] [phone] documented in this encounter Visit Diagnoses Diagnosis Malignant neoplasm of right female breast, unspecified estrogen receptor status, unspecified site of breast (HCC-CMS) Primary malignant neoplasm of breast with metastasis (HCC-CMS) documented in this encounter Care Teams Agricultural Research Technologist Relationship Specialty Start Date End Date Linda Blancas MD [facility] [address] [place] [address] PCP - General 01/06/11 Adolfo Carreno MD [address] [place] [address], [facility], [address] [place] [phone] General Surgery 04/26/19 documented as of this encounter
--- OUTSIDE RECORDS SUMMARY | 2024-03-20 14:33 | XMS_ITS | Encounter Summary ---
Author Organization [facility] Address [address] [place] [address] Care Team Providers Care Jewel Bearing Maker Name Role Phone Linda Blancas MD Primary Care Provider [phone] Adolfo Carreno MD Unavailable [phone] Reason for Visit * Reason Comments Follow-up * Consult (Routine/Next Available) - Receiving Office to Obtain Authorization Specialty Diagnoses / Procedures Referred By Doug hearn Referred To Contact Infectious Disease Diagnoses 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, unspecified laterality, 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[facility]) [place] [address] [place] [id number] Tere Dc MD [address] [place] [phone] Referral ID Status Reason Start Date Expiration Date Visits Requested Visits Authorized [id number] Receiving Office to Obtain Authorization Specialty Services Required 01/19/2024 1 1 Encounter Details Date Type Department Care Team (Late st Contact Info) Description 02/07/2024 10:00 EDT Office Visit [facility] Infectious Disease - [address] [phone] Errol Ferrell MD [address] [place] [phone] CAP (community acquired pneumonia) due to Pneumocystis jirovecii ([facility]) (Primary Dx) Social History Tobacco Use Types Packs/Day Years Used Date Smoking Tobacco: Never Passive Smoke Exposure: Never Smokeless Tobacco: Never Alcohol Use Standard Drinks/Week Comments Not Currently 1 (1 standard drink = 0.6 oz pur e alcohol) [facility] Utilities Answer Date Recorded In [...] any time in the past 12 m [facility], were you homeless or living in [...] Sign Reading Time Taken Comments Blood Pressure 128/62 02/07/2024 0958 EDT Pulse 113 02/07/2024 0958 EDT Temperature - - Respiratory Rate - - Oxygen Saturation - - Inhaled Oxygen Concentration - - Weight 52.2 kg (115 lb) 02/07/2024 0958 EDT pt r eported Height - - Body Mass Index 21.74 01/31/2024 0943 EDT documented in this encounter [...] as of this encounter Progress Notes * Errol Ferrell MD - 02/07/2024 1000 EDT Infectious Disease Clinic Follow Up Note Date of Service: 02/07/2024 Followup For: (Modified from Dr. Quintanilla's note) is a 63 yr old woman with a PMH notable for metastatic ER+ breast cancer (mets to liver c/b portal HTN, lymphadenopathy, bony mets), PE on Eliquis, and recently admitted from 01/07 - 01/19/24 for a several month history of shortness of breath with acute worsening and hypoxia with cough and a chest CT notable for diffuse patchy ground glass opacities. Initially the differential included acute infection vs Trastuzumab pneumonitis. She was initially treated with high dose steroids and underwent bronchoscopy with BAL that showed PJP positive PCR; Prior to this result she had been started on empiric Atovaquone (due to her difficulties with sulfa antibiotics) and this was continued with the bronchoscopy confirmation. Her hospital course was complicated by recurrent ascites requiring 3 x paracentesis. She was ultimately discharged from the hospital on 01/19/24 with 8L oximyzer on atovaquone and prednisone for PJP treatment. She was evaluated in the Pulmonary clinic on 01/25/24 and at that time has noticed a very gradual, and still incomplete, improvement in her respiratory status. She continues to use between 2.5 and 5Lnasal cannula at home (only with ambulation/movement). She does mention that she has fallen 3 timessince her discharge in the setting of feeling suddenly light headed/dyspneic when leaning forward. She was seen in urgent care the other day for MSK injuries due to these falls. She denies hitting her head or having syncope, but says that it is more of a sensation of acute hypoxia that she is not quite used to. She has no other respiratory symptoms since being discharged. She is not taking any inhalers and is not using her oxygen during sleep or at rest. She is able to ambulate around stores on2.5 liters without getting shrot of breath. She endorses feeling generally very weak.Given that itwas unclear if the Trastuzumab was contributing in part to her respiratory compromise it was recommended that she complete her PJP therapy and on the completion of this therapy to obtain PFTs including DLCO with a chest CT without contrast to obtain a new baseline for re- instituting therapy. Since that visit - She continues to do well - less shortness of breath, less cough, no chest pain, now with abdominal distention but no N,V or diarrhea Anti-infectives & Other Pertinent Medications: Atovaquone 750 mg BID Vital Signs: BP 128/62 (BP Cuff Location: Left arm, BP Patient Position: Sitting, BP Cuff Sizes: Adult, small) Pulse (!) 113 Wt 52.2 kg (115 lb) Comment: pt reported BMI 21.74 kg/m?? Exam: Chest - clear anterior/posterior lung perez Cor - regular, tachycardic Data Review: Laboratory data reviewed. Pertinent positives include: Labs: 01/30 - WBC - 11.3 Hct 29.5 Plt - 160 Other: 02/06 - Chest CT - improved ground glass opacities with residual in BELKIS and bilateral lower lobes Assessment: PJP pneumonia vs pneumonitis from Enhertu. At this point, Ms. Pleitez is much improved symptomatically with decreased shortness of breath, decreased cough, improved exercise tolerance and feels markedly improved from her hospitalization. A repeat CT chest showed improvement but she continues tohave some residual ground glass opacities in the BELKIS and in bilateral lower lobes. She currently will drop to Prednisone 10 mg daily and apparently this was only started to improve her energy. At this point she will complete her therapy for PJP. Her Enhertu does not necessarily increase her risk ofPJP and she was not on a great deal of steroids but this may have contributed - particularly with the dexamethasone during her chemo. Consequently, she may require secondary prophylaxis. Recommendations: Consider discontinuing her Prednisone Finish therapy for PJP Secondary prophylaxis with Atovaquone 1500 mg once per day T cell subsets (from 02/06 blood draw) Discussed with primary care team Errol Ferrell MD 02/06/2024 9:34 documented in this encounter Plan of Treatment Upcoming Encounters Date Type Department Care Team (Late st Contact Info) Description 04/02/2024 10:30 EDT Appointment [facility] Interventional Radiology Unit [address] [place] [phone] 04/02/2024 15:15 EDT Office Visit [facility] Surgical Oncology - [address] [phone] Adolfo Carreno MD 111 [facility], [address] [place] [phone] 04/05/2024 9:30 EDT Telemedicine [facility] - [facility] Palliative Care Services [address], [place] [phone] Chichi Woods MD 111 [facility] [place] [address] [place] [phone] 04/11/2024 15:00 EDT Telemedicine [facility] Hematology & Oncology - [facility] [address], [place] [phone] Alisson Carreon MD [address] [place] [address], [facility] [address] [place] [phone] 04/13/2024 13:30 EDT Appointment [facility] Hematology & Oncology - [address] [phone] 04/13/2024 14:00 EDT Appointment [facility] Hematology & Oncology - [address] [id number] 04/16/2024 10:00 EST Telemedicine [facility] - [facility] Palliative Care Services [address] [place] [phone] Chichi Woods MD [address] [place] [address], [address] [phone] 04/24/2024 9:00 EST Appointment [facility] Radiology CT Outpatient - [address] [id number] 04/24/2024 11:00 EST Appointment [facility] Breast Imaging - [address] [id number] 04/27/2024 12:00 EST Appointment [facility] Hematology & Oncology - [address] [id number] 05/02/2024 15:00 EST Telemedicine [facility] Hematology & Oncology - [address] [phone] Alisson Carreon MD [address] [place] [address], [address] [place] [phone] 05/04/2024 10:15 EST Ancillary Procedure [facility] Cardiology - [address] [place], [place] [phone] 05/04/2024 11:30 EST Appointment [facility] Hematology & Oncology - [address] [address] 05/04/2024 12:00 EST Appointment [facility] Hematology & Oncology [address] [address] 06/12/2024 13:[address] [facility] Radiology CT - [address] [address] Scheduled Orders Name Type Priority Associated Diagnoses Orde r Schedule T CELL SUBSETS Lab Routine CAP (community acquired pneumonia) due to Pneumocystis jirovecii (HCC-CMS) Expected: 02/08/2024 (Approximate), Expires: 02/07/2025 documented as of this encounter Visit Diagnoses Diagnosis CAP (community acquired pneumonia) due to Pneumocystis jirovecii (HCC-CMS)- Primary documented in this encounter Care Teams Jewel Bearing Maker Relationship Specialty Start Date End Date Linda Blancas MD [facility] [address] [place] [address] PCP - General 01/06/11 Adolfo Carreno MD [address] [place] [address], [address] [place] [phone] General Surgery 04/26/19 documented as of this encounter
--- OUTSIDE RECORDS SUMMARY | 2024-03-20 14:33 | XMS_ITS | Encounter Summary ---
Author Organization [facility] Address [address] [place] [address] Care Team Providers Care Bumper Operator Name Role Phone Linda Blancas MD Primary Care Provider [phone] Adolfo Carreno MD Unavailable [phone] Reason for Referral * Radiology Services (Routine/Next Available) - Authorization Not Required Specialty Diagnoses / Procedures Referred By Contac t Referred To Contact Diagnoses Ascites Procedures IR PARACENTESIS-RADIOLOGY Hugo Vergara MD PhD [address] [place] [phone] [facility] Referral ID Status Reason Start Date Expiration Date Visits Requested Visits Authorized [id number] Authorization Not Required 02/03/2024 1 1 Reason for Visit * Radiology Services (Routine/Next Available) - Authorization Not Required Specialty Diagnoses / Procedures Referred By Contac t Referred To Contact Diagnoses Ascites Procedures IR PARACENTESIS-RADIOLOGY Hugo Vergara MD PhD [address] [place] [phone] [facility] Referral ID Status Reason Start Date Expiration Date Visits Requested Visits Authorized [id number] Authorization Not Required 02/03/2024 1 1 Encounter Details Date Type Department Care Team (Late st Contact Info) Description 02/07/2024 12:23 EDT - 02/07/2024 15:14 EDT Hospital Encounter [facility] Interventional Radiology Unit [address] [place] [address] Samuel Noble PA-C 111 [facility] [place], [address] [place] [phone] Other ascites (Primary Dx); Ascites Discharge Disposition: Home or Self Care Social History Tobacco Use Types Packs/Day Years Used Date Smoking Tobacco: Never Passive Smoke Exposure: Never Smokeless Tobacco: Never Alcohol Use Standard Drinks/Week Comments Not Currently 1 (1 standard drink = 0.6 oz pur e alcohol) [facility] Utilities Answer Date Recorded In the [...] Sign Reading Time Taken Comments Blood Pressure 126/73 02/07/2024 1351 EDT Pulse 100 02/07/2024 1351 EDT Temperature - - Respiratory Rate 18 02/07/2024 1351 EDT Oxygen Saturation 100% 02/07/2024 1351 EDT Inhaled Oxygen Concentration - - Weight - - Height - - Body Mass Index - - documented in this encounter Functional Status Functional [...] this encounter Discharge Instructions * Discharge Instructions* Marika Charles RN - 02/07/2024 13:32 EDT Interventional Radiology Discharge Instructions Date: 02/07/2024 Procedure: Paracentesis (removal of fluid from your abdomen) Provider: Samuel Noble PA-C Aftercare: Activity: Rest today. Do not [...] after your procedure. When to contact the [facility] (call 911 if symptoms are severe): 1. [...] the symptoms above, please call: Tuesday-Tuesday 8-4:30: [phone] (option 2) This phone number will connect you to the nurse triage line. Please note, phone calls after 4 pm may not be returned until the next business day. After hours and weekends: For urgent issues, you may speak to a physician mononitrotoluene operator by dialing [phone] and ask to speak with the vice president of marketing mononitrotoluene operator. documented in this encounter Medications at Time [...] Tablet 01/19/2024 02/18/2024 prochlorperazine (COMPAZINE) 10 mg tabletIndications:[facility] malignant neoplasm of breast with metastasis (HCC-CMS) [...] documented in this encounter Progress Notes * Marika Charles, RN - 02/07/2024 1300 EDT Procedure: Paracentesis Patient arrived from to at 1300. Patient name and verified using armband and verbally. Patient educated on procedure, patient verbalized understanding-Consent completed and verified. Patient is alert and oriented x 4, able to follow commands with all extremities, able to make needsknown. 0/10 complaints of pain. Patients allergies, medications and lab results reviewed. Patient placed in semi-fowlers position on stretcher. Vital signs assessed. A pre-procedure ultrasound was completed to assess fluid volume. Procedure necessity completed. Sterile prep of patient's abdomen with duraprep disinfecting solution by SUKHJINDER in the usual sterile fashion in accordance with manufacturers recommendations. Time out completed prior to start of procedure (ALO, SUKHJINDER, DOMINGA, and Dr. Hanson as supervising provider). Ultrasound guidance utilized to access fluid, catheter placed without incident. Total fluid volume removed: 1250 ml Fluid color: yellow Catheter removed and band aid applied to puncture site. Procedure completed by Steve RECINOS. Procedure well tolerated by patient. 0/10 complaints of pain. Vital signs stable. Discharge instructions reviewed with patient, no further questions at this time. Patient escorted to the waiting area in baseline condition. Discharged to home. documented in this encounter Procedure Notes * Samuel Noble PA-C - 02/07/2024 1300 EDT IR Procedure Note Procedure: U/S guided Paracentesis Date Performed: 02/07/2024 Radiologist/Time Clock Mechanic(s): Dr. Palumbo/ Ru RECINOS Sedation/Anesthesia: 1% (local) lidocaine Time Out: A time-out was completed prior to procedure verifying correct patient, procedure, site, positioning, and special equipment if applicable. Estimated Blood Loss: Unless otherwise noted, there was no blood loss, specimens removed, cultures obtained, or drains retained. Specimens: None Fluoroscopy Time: N/A Contrast Volume: N/A Complications: None Condition: Good Post Procedure Diagnosis: Ascites Findings: 1.25 L turbid fluid Recommendations: F/U PRN Samuel Noble PA-C 02/07/2024 14:34 documented in this encounter Plan of Treatment Upcoming Encounters Date Type Department Care Team (Late st Contact Info) Description 04/02/2024 10:30 EDT Appointment [facility] Interventional Radiology Unit [address] [place] [phone] 04/02/2024 15:15 EDT Office Visit [facility] Surgical Oncology - [facility] [address] [place], [place] [phone] Adolfo Carreno MD [address] [facility], [address] [place] [phone] 04/05/2024 9:30 EDT Telemedicine [facility] [place] [facility] - [facility] Palliative Care Services [address] [place], [place] [address] Chichi Woods MD [address] [place] [address] [address] [place] [phone] 04/11/2024 15:00 EDT Telemedicine [facility] Hematology & Oncology - [address] [phone] Alisson Carreon MD [address] [place] [address] [address] [place] [phone] 04/13/2024 13:30 EDT Appointment [facility] Hematology & Oncology - [address] [phone] 04/13/2024 14:00 EDT Appointment [facility] Hematology & Oncology - [address] [id number] 04/16/2024 10:00 EST Telemedicine [facility] [place] [facility] - [facility] Palliative Care Services [address] [place] [phone] Chichi Woods MD [address] [place] [phone] 04/24/2024 9:00 EST Appointment [facility] Radiology CT Outpatient - [address] [id number] 04/24/2024 11:00 EST Appointment [facility] Breast Imaging - [address] [phone] 04/27/2024 12:00 EST Appointment [facility] Hematology & Oncology - [address] [phone] 05/02/2024 15:00 EST Telemedicine [facility] Hematology & Oncology - [address] [phone] Alisson Carreon MD [address] [place] [address] [address] [place] [phone] 05/04/2024 10:15 EST Ancillary Procedure [facility] Cardiology - [address] [place] [address] 05/04/2024 11:30 EST Appointment [facility] Hematology & Oncology [address] [phone] 05/04/2024 12:00 EST Appointment [facility] Hematology & Oncology [address] [phone] 06/12/2024 13:00 EST Appointment [facility] Radiology CT - [address] [phone] documented as of this encounter Procedures Procedure Name Priority Date/Time Associated Diagnosis Comments IR PARACENTESIS-RADIOL OGY Routine 02/07/2024 14:11 EDT Ascites documented in this encounter Results * IR PARACENTESIS-RADIOLOGY (02/07/2024 14:11 EDT) Anatomical [...] above interpretation and agree with the findings. [id number] Narrative 02/07/2024 15:30 EDT IR PARACENTESIS-RADIOLOGY ??02/07/2024 [...] performance of this procedure. Resulting Agency Comment [id number] Procedure Note Guerrero Palumbo MD - 02/07/2024 [...] the above interpretation andagree with the findings. [id number] Hugo Vergara MD PhD IMG IR ORDERABL ES documented in this encounter Visit Diagnoses Diagnosis Other ascites- Primary documented in this encounter Care Teams Bumper Operator Relationship Specialty Start Date End Date Linda Blancas MD [facility] [address] [place] [address] PCP - General 01/06/11 Adolfo Carreno MD [address] [place] [address], [address] [place] [phone] General Surgery 04/26/19 documented as of this encounter
--- OUTSIDE RECORDS SUMMARY | 2024-03-20 14:33 | XMS_ITS | Encounter Summary ---
Author Organization [facility] Address [address] [place] [address] Care Team Providers Care Event Designer Name Role Phone Linda Blancas MD Primary Care Provider [phone] Adolfo Carreno MD Unavailable [phone] Reason for Visit * Reason Comments Injections * Episode Based Medications (Routine) - Authorization Not Required Specialty Diagnoses / Procedures [facility] Referred To Contact Diagnoses Osteopenia of necks of both femurs Primary malignant neoplasm of breast with metastasis (HCC-CMS) Alisson Carreon MD [address] [facility], [facility] 2 [place] [address] [facility] Ep2 Infusion [address] [place] [address] Referral ID Status Reason Start Date Expiration Date Visits Requested Visits Authorized [id number] Authorization Not Required 11/29/2023 1 8 Encounter Details Date Type Department Care Team (Latest Contact Info) Description 01/31/2024 10:27 EDT - 01/31/2024 23:59 EDT Hospital Encounter [facility] Cancer Center Hematology & Oncology - [address] [id number] Osteopenia of necks of both femurs (Primary Dx); Primary malignant neoplasm of breast with metastasis (HCC-CMS) Discharge Disposition: Home or Self Care Social History Tobacco Use Types Packs/Day Years Used Date Smoking Tobacco: Never Passive Smoke Exposure: Never Smokeless Tobacco: Never Alcohol Use Standard Drinks/Week Comments Not Currently 1 (1 standard drink = 0.6 oz pur e alcohol) [facility] Utilities Answer Date Recorded In [...] any time in the past 12 m [facility], were you homeless or living in [...] estrogen receptor status, unspecified site of breast ([facility]) Take 1 Tablet by mouth 2 times daily as needed for Muscle Spasms. 60 Tablet 1 01/19/2024 furosemide (LASIX) 20 mg tablet Take 2 Tablets by mouth daily. 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 14 Tablet 01/20/2024 02/01/2024 prochlorperazine (COMPAZINE) 10 mg tabletIndications:Ani hale malignant neoplasm of breast with metastasis (HCC-CMS) [...] documented in this encounter Progress Notes * Beck Ham, RN - 01/31/2024 1215 EDT Denosumab Injection Note Patient presents for C2D1 of q6 weeks Denosumab SQ. Seen by TANK Mosqueda today, infusion scheduled for 02/02 being moved to 02/20 (per pt report after PV today); will try to coordinate injections with infusions (every 6 weeks) for the same day as she has a 1.[address]. Reported tolerating first dose, no complications of note. No concerns or questions today. Reviewed lab results with patient Chemistry: Lab Results Component Value Date NA 134 (L) 01/31/2024 K 4.0 01/31/2024 BUN 18 01/31/2024 CREATININE 0.54 01/31/2024 CALCIUM 8.5 01/31/2024 MG 2.2 01/31/2024 PHOS 3.2 01/31/2024 CrCl 83.718, Char Ca 9.46. All parameters met. Reviewed dental history and verified that patient wastaking calcium and vitamin D. Denosumab (XGEVA) 120 mg given in RIGHT upper arm (see MAR). No complications. Gauze and blue tape applied. Educated patient on possibility of flu-like side effects. Patient verbalized understanding of side effects and knows to call with questions. I was supervised by Dr. Easley who was readily available in the office suite. BECK HAM RN 01/31/2024 12:18 documented in this encounter Miscellaneous Notes * Addendum Note - Emerita Ly - 01/31/2024 1215 EDTEncounter addended by: Emerita Ly on: 02/01/2024 10:33 Actions taken: Charge Capture section accepted documented in this encounter Plan of Treatment Upcoming Encounters Date Type Department Care Team (Late st Contact Info) Description 04/02/2024 10:30 EDT Appointment [facility] Interventional Radiology Unit [address] [place] [phone] 04/02/2024 15:15 EDT Office Visit [facility] Surgical Oncology - [address] [address] Adolfo [facility]reno MD [facility] 2 [place] [phone] 04/05/2024 9:30 EDT Telemedicine [facility] Palliative Care Services [address] [place] [phone] Chichi Woods MD [address] [place] [phone] 04/11/2024 15:00 EDT Telemedicine [facility] Hematology & Oncology - [address] 5[address] Alisson Carreon MD [address] [place] [address] 2 [place] [phone] 04/13/2024 13:30 EDT Appointment [facility] Hematology & Oncology - [address] [phone] 04/13/2024 14:00 EDT Appointment [facility] Hematology & Oncology - [address] [phone] 04/16/2024 10:00 EST Telemedicine [facility] - [facility] Palliative Care Services [address] [place] [address] Chichi Woods MD [address] [place] [phone] 04/24/2024 9:00 EST Appointment [facility] Radiology CT Outpatient - [address] [phone] 04/24/2024 11:00 EST Appointment [facility] Breast Imaging - [address] [phone] 04/27/2024 12:00 EST Appointment [facility] Hematology & Oncology [address] [address] 05/02/2024 15:00 EST Telemedicine [facility] Hematology & Oncology [address] [address] Alisson Carreon MD [address] [place] [address], [address] [place] [phone] 05/04/2024 10:15 EST Ancillary Procedure [facility] Cardiology - [place] [address] 05/04/2024 11:30 EST Appointment [facility] Hematology & Oncology [address] [address] 05/04/2024 12:00 EST Appointment [facility] Hematology & Oncology [address] [address] 06/12/2024 13:00 EST Appointment [facility] Radiology CT - [address] [phone] documented as of this encounter Visit Diagnoses Diagnosis Osteopenia of necks of both femurs- Primary Primary malignant neoplasm of breast with metastasis (HCC-CMS) documented in this encounter Administered Medications Inactive Administered Medications - up to 3 most recent administrations Medication Order MAR Action Action Date Dose Rate Site denosumab (XGEVA) injection 120 mg 120 mg, subcutaneous, NOW X1, 1 dose, On Tue01/31/24 at 1215, Routine Given 01/31/2024 12:09 EDT 120 mg Right A rm documented in this encounter Orders Medications Ordered That Vj ht Not Have Been Administered Count Last Ordered Date First Ordered Date denosumab (XGEVA) injection 120 mg 1 2023 Nursing Count Last Ordered Date First Orde red Date INFORMED CONSENT 1 01/31/2024 NURSING COMMUNICATION 1 01/31/2024 Appointment Requests Count Last Ordered Date Fi rst Ordered Date ONCBCN INJECTION APPOINTMENT REQUEST 01/12 documented in this encounter Care Teams Event Designer Relationship Specialty Start Date End Date Linda Blancas MD [facility] [address] [place] [address] PCP - General 01/06/11 Adolfo Carreno MD [address] [place] [address], [facility] [address] [place] [phone] General Surgery 04/26/19 documented as of this encounter
--- OUTSIDE RECORDS SUMMARY | 2024-03-20 14:33 | XMS_ITS | Encounter Summary ---
Author Organization [facility] Address [address] [place] [address] Care Team Providers Care Tobacco Sizer Name Role Phone Linda Blancas MD Primary Care Provider [phone] Adolfo Carreno MD Unavailable [phone] Reason for Visit * Reason Comments Follow-up Injections Encounter Details Date Type Department Care Team (Late st Contact Info) Description 01/31/2024 11:00 EDT Office Visit [facility] Cancer Center Hematology & Oncology - [facility] [address] [place] [address] Nadeen Blood, PA-C [address] [facility], [address] [place] [phone] Primary malignant neoplasm of breast with metastasis (HCC-CMS) (Primary Dx); 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, unspecified laterality, 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HCC-CMS) Social History Tobacco Use Types Packs/Day Years Used Date Smoking Tobacco: Never Passive Smoke Exposure: Never Smokeless Tobacco: Never Alcohol Use Standard Drinks/Week Comments Not Currently 1 (1 standard drink = 0.6 oz pur e alcohol) [facility] Utilities Answer Date Recorded In the past [...] time in the past 12 [facility], were you homeless or living in [...] Sign Reading Time Taken Comments Blood Pressure 125/59 01/31/2024 1039 EDT Pulse 103 01/31/2024 1039 EDT Temperature 36.7 ??C (98 ??F) 01/31/2024 1039 EDT Respiratory Rate 16 01/31/2024 1039 EDT Oxygen Saturation 100% 01/31/2024 1039 EDT Inhaled Oxygen Concentration - - Weight 49.4 kg (108 lb 14.4 oz) 01/31/2024 1039 EDT Height - - Body Mass Index 20.59 01/31/2024 0943 EDT documented in this encounter [...] as of this encounter Progress Notes * Nadeen Blood PA-C - 01/31/2024 1100 EDT Sunshine Pleitez is a 63 y.o.yo female presenting in clinic today for post-hospitalization follow up, in the setting of consideration of ongoing therapy for metastatic breast cancer. She is also due for denosumab injection today. Chief Complaint Patient presents with Follow-up Injections Breast Oncology History PROBLEM LIST: 1. 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 Ultrasound performed in [place] identifying an irregular heterogeneous soft tissue mass measuring 1.2 x 1.2 x 1.5 cm. b. Two punch biopsies near the site of the skin changes the right breast perfomed by Dr Carreno 10/21/2016; Pathology identified an invasive ductal type carcinoma involving the epidermis and dermis ofthe skin, nuclear grade 2, which was ER+80%, WA+20%. HER-2 1+ by IHC. ANNE MARIE revealed [...] breast tumor 07/07/17 and placement of tissue customer quality specialist. 1.9 cm tumor at time ofsurgery, well differentiated, with LVI present, and negative margins. G. Biopsy left cervical LN 02/11/20 - consistent with metastatic adenocarcinoma consistent with breast primary H. Fulvestrant initiated 03/06/20; abemaciclib initiated 03/31/20 discontinued 06/01 due to diarrhea; palbociclib initiated March 2021 I. Capecitabine initiated December 2021 J. Y90 infusion to liver by Dr Moya 04/08/22 and again 05/14/22 K. 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 Lung biopsy 06/22/23 - adenocarcinoma consistent with metastatic breast cancer; ER+ >90%, WA < 5%; HER2 2+ equivocal; [place] FISH testing negative M. Elacestrant initiated early August 2023 Potential future treatment options: trodelvy, various chemo's (eribulin, gem/cis, taxane/abraxane, Navelbine, adriamycin/doxil) N: 09/2023 elecestrant: Her scans were relatively stable disease however LFTs, persistent cough suggest progression. CA 27-29 >800 10/18/23 C#1 T-dxd (Enhertu) Continued Enhertu thru late December 2023 at which point presented with significant cough and dyspnea, admitted with concern for possible Enhertu-related pneumonitis, and with ultimately a diagnosis of PJP pneumonia. Pulmonology and ID involved,as well as GI/hepatolgy, around ongoing need for paracenteses. 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 Lung biopsy 06/22/23 - adenocarcinoma consistent with metastatic breast cancer; ER+ >90%, WA < 5%; HER2 2+ equivocal; [place] FISH testing negative 11/29/23 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%) Genetics: NMN VUS per notes SUBJECTIVE: Sendy presents for labs and to resume denosumab. She had a gibran few weeks, inpatient from late December through January 18. She was sent to the ED with significant dyspnea, and ultimately her diagnosis was PJP pneumonia, versus Enhertu until follow-up chest CT (not yet scheduled), and completion of antibiotic. Earlier today she had paracentesis, with 2 L removed which did relieve some pressure and discomfort. She remains on diuretic, managed by hepatology. She reports voice hoarseness as well as a sore throat, particularly in the evening. She has not tried any rinses and I suggested starting with salt water gargles, and will ask nursing staff to send along Magic mouthwash instructions. She is thankfully moving her bowels regularly, after significant issues with constipation. She denies pain currently, taking Dilaudid usually in the evening only, sometimes in the afternoon. She is also on gabapentin twice daily, and 600 mg at bedtime. She feels quite deconditioned and did have a fall unfortunately, just over a week ago, down her basement steps. No major injuries and she is being very careful to avoid another fall. REVIEW OF SYMPTOMS: I went through a verbal review of symptoms with the patient. Symptoms as noted above. System review is otherwise without acute complaints. Past medical, surgical, family and social history reviewed and updated. , here with spouse Nitish. Lives in [facility] Objective: BP 125/59 Pulse 103 Temp 36.7 ??C (98 ??F) (Skin) Resp 16 Wt 49.4 kg (108 lb 14.4 oz) SpO2 100% BMI 20.59 kg/m?? General appearance: alert, no distress Head: Normocephalic, without obvious abnormality, atraumatic Neck: supple, symmetrical, trachea midline and no adenopathy Lymph nodes: Cervical, supraclavicular nodes normal. Lungs: clear to auscultation bilaterally Heart: regular rate and rhythm, No significant murmur non-tender Neurologic: Grossly normal Mental Status: mood and affect appropriate, speech and thought process intact Extremities: extremities warm, atraumatic, no cyanosis or edema Skin: Skin color, temperature, turgor normal. No rashes or lesions LABORATORY: Today CMP significant for slightly low sodium of 134. Protein/albumin both a bit low. AST/ALT at 63/52. Bilirubin elevated at 2.4. Alkaline phosphatase 391. Hemogram shows high normal white count, ANC 9.29. Hemoglobin 9.9. Platelets 160. ASSESSMENT: Metastatic breast cancer, with diagnosis and therapy as documented above. Sendy previously saw Dr. Augustina Colin, and now has established with Dr.Shlomit Carreon. Sendy has been on Enhertu since early October of this year, with generally reasonable tolerance and diminishment of tumor marker. However, at her last visit in late December, Sendy was noted to be progressively more dyspneic and was sent to the ED, with concern for possible Enhertu induced pneumonitis. She ultimately was found to have PJP pneumonia, and continues therapy for this diagnosis. Her breathing is markedly improved, although she is deconditioned and has had several falls. She additionally has recurrent ascites since late October of this year, requiring regular paracenteses.Per hepatology, ascitic fluid analysis indicates portal hypertension, and she continues on furosemide and spironolactone. There has been a lot of discussion and messaging across various disciplines about timing of resumption of Enhertu. In the 01/24 note pulmonary recommends that you complete your entire treatment course for PJP treatment prior to restarting Trastuzumab given that it either may have contributed to this initial insult, or could have the potential to induce lung injury down the road Today we discussed that Sendy and her would check in with pulmonology regarding getting chest CT scheduled, as we would also like to see this result. Additionally they will clarify when her atovaquone course should be completed. In the meantime she is fit to go ahead with denosumab injection as planned today. PLAN: Resumption of Enhertu timing is still not determined; Sendy will find out when she is done atovaquone, and we will also await scheduling of repeat chest CT. Follow-up with hepatology, pulmonology, and ID as scheduled going forward. Denosumab injection today as planned. Encourage participation with physical therapy to help with balance and strength (referred by pulmonology). Diuresis and paracentesis as directed by hepatology; currently on furosemide and spironolactone. Salt water rinses and Magic mouthwash to address sore throat. Sendy is currently scheduled for a visit with Dr. Carreon (telemedicine) on 02/28/2024. We will adjust her follow-up and treatment plan once we have more information about her antibiotic course and chest CT. Follow up sooner than scheduled visit with any acute concerns or questions. I spent a total of 40 minutes on the date of this encounter meeting with the patient and reviewing documentation/coordinating care as described in the above note. No procedures were performed at the time of the visit. Nadeen Blood PA-C 01/31/2024 10:58 documented in this encounter Plan of Treatment Upcoming Encounters Date Type Department Care Team (Late st Contact Info) Description 04/02/2024 10:30 EDT Appointment [facility] Interventional Radiology Unit [address] [place] [phone] 04/02/2024 15:15 EDT Office Visit [facility] Surgical Oncology - [address] [phone] Adolfo Carreno MD [address] [place] [phone] 04/05/2024 9:30 EDT Telemedicine [facility] Palliative Care Services [address] [place] [address] [phone] Chichi Woods MD [address] [place] [phone] 04/11/2024 15:00 EDT Telemedicine [facility] Hematology & Oncology [address] [phone] Alisson Carreon MD [address] [place] [phone] 04/13/2024 13:30 EDT Appointment [facility] Hematology & Oncology [address] [phone] 04/13/2024 14:00 EDT Appointment [facility] Hematology & Oncology - [address] [address] 04/16/2024 10:00 EST Telemedicine [facility] - [facility] Palliative Care Services [address] [place] [address] Chichi Woods MD [address] [place] [address], [address] [phone] 04/24/2024 9:00 EST Appointment [facility] Radiology CT Outpatient - [address] [address] 04/24/2024 11:00 EST Appointment [facility] Breast Imaging - [facility] 1 [place], [place] [address] 04/27/2024 12:00 EST Appointment [facility] Hematology & Oncology - [address] [phone] 05/02/2024 15:00 EST Telemedicine [facility] Hematology & Oncology [address] [phone] Alisson Carreon MD [address] [place] [address], [facility], Level [address] [place] [phone] 05/04/2024 10:15 EST Ancillary Procedure [facility] Cardiology - [place] [address] 05/04/2024 11:30 EST Appointment [facility] Hematology & Oncology - [address] [address] 05/04/2024 12:00 EST Appointment [facility] Hematology & Oncology - [address] [phone] 06/12/2024 13:00 EST Appointment [facility] Rad[facility] - [facility] [address] [place] [address] documented as of this encounter Visit Diagnoses Diagnosis Primary malignant neoplasm of breast with metastasis (HCC-CMS)- Primary 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 Take on days 2 and 3 after chemotherapy. 12/26/2023 01/31/2024 senna (SENOKOT) 8.6 mg tablet Take 2 Tablets by mouth daily for 30 days. 01/19/2024 01/31/2024 documented as of this encounter Care Teams Tobacco Sizer Relationship Specialty Start Date End Date Linda Blancas MD [facility] [address] [place] [address] PCP - General 01/06/11 Adolfo Carreno MD [address] [facility], [facility], Level [address] [place] [phone] General Surgery 04/26/19 documented as of this encounter
--- OUTSIDE RECORDS SUMMARY | 2024-03-20 14:33 | XMS_ITS | Encounter Summary ---
Author Organization [facility] Address [address] [place] [address] Care Team Providers Care Wheel Filler Name Role Phone Linda Blancas MD Primary Care Provider [phone] Adolfo Carreno MD Unavailable [phone] Encounter Details Date Type Department Care Team (Latest Contact Info) Description 01/31/2024 10:27 EDT - 01/31/2024 23:59 EDT Hospital Encounter [facility] Cancer Center Hematology & Oncology - [facility] [address], [place] [id number] Malignant neoplasm of right female breast, unspecified [...] drink = 0.6 oz pur e alcohol) [facility] Utilities Answer Date Recorded In the past 12 months has e electric, gas, oil, or water [employer] threatened to shut off services in your [...] any time in the past 12 m [facility], were you homeless or [...] Tablet 01/20/2024 02/01/2024 prochlorperazine (COMPAZINE) 10 mg tabletIndications:[facility] malignant neoplasm of breast with metastasis [...] in this encounter Progress Notes * Stacy Roper RN - 01/31/2024 1030 EDT Sunshine Pleitez presents to EP2 infusion for port access and flush. IVAD in right anterior chest accessed using sterile technique and size 20 3/4 Kessler needle. Brisk blood return noted; flushed without difficulty. Labs sent as per order. Port de-accessed without difficulty. Gauze applied. I was supervised by Dr. Easley who was present and immediately available in the office suite. STACY ROPER RN 01/31/2024 documented in this encounter Plan of Treatment Upcoming Encounters Date Type Department Care Team (Late st Contact Info) Description 04/02/2024 10:30 EDT Appointment [facility] Interventional Radiology Unit [address] [place] [address] 04/02/2024 15:15 EDT Office Visit [facility] Surgical Oncology - [address] [phone] Adolfo Carreno MD [address] [place] [address] [phone] 04/05/2024 9:30 EDT Telemedicine [facility] Palliative Care Services [address] [place] [address] [phone] Chichi Woods MD [address] [place] [address] [phone] 04/11/2024 15:[address] [facility] Hematology & Oncology - [address] [address] lAisson Carreon MD [address] [place] [address] [phone] 04/13/2024 13:[address] [facility] Hematology & Oncology [address] 082291 04/13/2024 14:[address] [facility] Hematology & Oncology - [address] [address] 04/16/2024 10:00 EST Telemedicine [facility] Palliative Care Services [address] [place] [address] [phone] Chichi Woods MD [address] [place] [address] [phone] 04/24/2024 9:00 EST Appointment [facility] Radiology CT Outpatient - [address] [address] 04/24/2024 11:00 EST Appointment [facility] Breast Imaging - [facility] [place] [address] [place], [place] 104[address] 04/27/2024 12:[address] [facility] Hematology & Oncology - [address] [phone] 05/02/2024 15:[address] [facility] Hematology & Oncology [address] 639121 Alisson Carreon MD [address] [place] [address], [facility], Level 2 [place] [phone] 05/04/2024 10:15 EST Ancillary Procedure [facility] Cardiology - [place] [address] 05/04/2024 11:[address] [facility] Hematology & Oncology - [address] [phone] 05/04/2024 12:[address] [facility] Hematology & Oncology [address] 585751 06/12/2024 13:00 EST Appointment [facility] Radiology CT - [address] [phone] documented as of this encounter Procedures Procedure [...] of breast with metastasis (HCC-CMS) PHOSPHORUS STAT 01/31/2024 10:28 EDT Malignant neoplasm of right female breast, unspecified estrogen receptor status, unspecified site of breast ([facility]) documented in this encounter Results * PHOSPHORUS (01/31/2024 10:28 EDT) Phosphorus 3.2 2.5 - 4.5 mg/dL 01/31/2024 11:43 EDT [facility] Blood VENOUS BLOOD / Unknown Venipuncture / Unknown 01/31/2024 10:28 EDT 01/31/2024 10:39 EDT Alisson Carreon MD CHEMISTRY & BLOOD G ORDERABLES [facility] [address] [place] [address] * (ABNORMAL) COMPREHENSIVE METABOLIC PANEL (ONCOLOGY USE ONLY-INC MG) (01/31/2024 10:28 EDT) Sodium 134(L) 136 - 145 mmol/L 01/31/2024 11:43 [facility] Potassium 4.0 3.5 - 5.0 mmol/L 01/31/2024 11:43 [facility] Chloride 98 96 - 110 mmol/L 01/31/2024 11:43 [facility] CO2 Total 30 22 - 32 mmol/L 01/31/2024 11:43 [facility] Glucose 140(H) 70 - 99 mg/dl 01/31/2024 11:43 [facility] BUN 18 10 - 26 mg/dL 01/31/2024 11:43 [facility] Creatinine 0.54 0.52 - 1.04 mg/dL 01/31/2024 11:43 [facility] eGFR 104 >60 mL/min/1.7 3m2 01/31/2024 11:43 [facility] Total Protein 6.0(L) 6.3 - 8.2 g/dL 01/31/2024 11:43 [facility] Albumin 2.8(L) 3.4 - 4.9 g/dL 01/31/2024 11:43 [facility] Alkaline Phosphatase 391(H) 38 - 126 U/L 01/31/2024 11:43 [facility] AST 63(H) 15 - 46 U/L 01/31/2024 11:43 [facility] ALT 52(H) <35 U/L 01/31/2024 11:43 [facility] Bilirubin, Total 2.4(H) <1.4 mg/dL 01/31/20 11:43 [facility] Calcium 8.5 8.5 - 10.5 mg/dL 01/31/2024 11:43 [facility] Magnesium 2.2 1.7 - 2.8 mg/dL 01/31/2024 11:43 [facility] Albumin/Globulin Ratio 0.9(L) 1.0 - 2.5 01/31/2024 11:43 [facility] Anion Gap 6 5 - 14 mmol/L 01/31/2024 11:43 [facility] Blood VENOUS BLOOD / Unknown Venipuncture / Unknown 01/31/2024 10:28 EDT 01/31/2024 10:39 EDT Augustina Colin MD PhD CHEMISTRY & BLOOD GA S ORDERABLES [facility] [address] [place] [address] * (ABNORMAL) COMPLETE BLOOD COUNT AND DIFFERENTIAL (01/31/2024 10:28 EDT) WBC 11.26 4.00 - 12.40 K/cmm 01/31/2024 10:53 T [facility] RBC 2.61(L) 3.86 - 5.04 M/cmm 01/31/2024 10:53 [facility] Hemoglobin 9.9(L) 11.6 - 15.2 g/dL 01/31/2024 10:53 [facility] HCT 29.5(L) 34.9 - 44.4 % 01/31/2024 10:53 [facility] MCV 113(H) 81 - 98 fL 01/31/2024 10:53 [facility] MCH 37.9(H) 26.7 - 33.3 pg 01/31/2024 10:53 [facility] MCHC 33.6 32.1 - 35.9 g/dL 01/31/2024 10:53 [facility] RDW-CV 18.3(H) <14.7 % 01/31/2024 10:53 [facility] RDW-SD 77.3(H) <50.4 fl 01/31/2024 10:53 [facility] PLT 160 141 - 377 K/cmm 01/31/2024 10:53 [facility] MPV 10.6 9.5 - 12.7 fL 01/31/2024 10:53 [facility] % Neutrophils 82.4 % 01/31/2024 10:53 [facility] % Lymphocytes 8.9 % 01/31/2024 10:53 [facility] % Monocytes 7.5 % 01/31/2024 10:53 [facility] % Eosinophils 0.3 % 01/31/2024 10:53 [facility] % Basophils 0.2 % 01/31/2024 10:53 [facility] % Immature Grans 0.7 % 01/31/20 10:53 [facility] Absolute Neutrophils 9.29(H) 2.20 - 8.85 K/cmm 01/31/2024 10:53 [facility] Absolute Lymphocytes 1.00(L) 1.09 - 3.30 K/cmm 01/31/2024 10:53 [facility] Absolute Monocytes 0.84(H) 0.10 - 0.80 K/cmm 01/31/2024 10:53 EDT [facility] Absolute Eosinophils 0.03 0.03 - 0.61 K/cmm 01/31/2024 10:53 EDT [facility] ABS Basophils 0.02 0.01 - 0.11 K/cmm 01/31/2024 10:53 EDT [facility] Absolute Immature Grans 0.08(H) 0.00 - 0.06 K/cmm 01/31/2024 10:53 EDT [facility] Type of Differential: Auto 01/31/2024 10:53 EDT [facility] Blood VENOUS BLOOD / Unknown Venipuncture / Unknown 01/31/2024 10:28 EDT 01/31/2024 10:39 EDT Augustina Colin MD PhD PACKAGES & DNA PROBE ORDERABLES Performing Organization Address [facility] Co de Phone Number [facility] [address] [place] [address] * (ABNORMAL) CA 27.29 (01/31/2024 10:28 EDT) CA 27.29 147.8(H) <38.0 U/mL 02/01/2024 9:16 EDT [facility] Comment: NOTE: Serum CA 27.29 concentration should not be interpreted as absolute evidence for the presence or absence of malignant disease. Assayed on Siemens ADVIA Centaur XPT using chemiluminescent technology. ??Values obtained by using different assay methods cannot be used interchangeably. Blood VENOUS BLOOD / Unknown Venipuncture / Unknown 01/31/2024 10:28 EDT 01/31/2024 10:39 EDT Augustina Colin MD PhD CHEMISTRY & BLOOD GA S ORDERABLES Performing Organization Address [facility]/ZIP Co de Phone Number [facility] [address] [place] [address] documented in this encounter Visit Diagnoses Diagnosis Malignant neoplasm of right female breast, unspecified estrogen receptor status, unspecified site of breast (HCC-CMS) Primary malignant neoplasm of breast with metastasis (HCC-CMS) documented in this encounter Care Teams Wheel Filler Relationship Specialty Start Date End Date Linda Blancas MD [address] [place] [address] 30 [place] [address] PCP - General 01/06/11 Adolfo Carreno MD [address] [place] [address] 2 [place] [phone] General Surgery 04/26/19 documented as of this encounter
--- OUTSIDE RECORDS SUMMARY | 2024-03-20 14:33 | XMS_ITS | Encounter Summary ---
Author Organization [facility] Address [address] [place] [address] Care Team Providers Care Stamp Clerk Name Role Phone Linda Blancas MD Primary Care Provider [phone] Adolfo Carreno MD Unavailable [phone] Encounter Details Date Type Department Care Team (Late st Contact Info) Description 01/31/2024 Orders Only [facility] Cancer Center Hematology & Oncology - [facility] [address] [place] [address] Marian Rodarte, RN [address] [place] [address] Malignant neoplasm of right female breast, unspecified estrogen receptor status, unspecified site of breast (HCC-CMS) (Primary Dx) Social History Tobacco Use Types Packs/Day Years Used Date Smoking Tobacco: Never Passive Smoke Exposure: Never Smokeless Tobacco: Never Alcohol Use Standard Drinks/Week Comments Not Currently 1 (1 standard drink = 0.6 oz pur e alcohol) [facility] Utilities Answer Date Recorded In the past 12 months has e [employer], gas, oil, or water [employer] threatened to shut off services in your [...] as of this encounter Progress Notes * Marian Rodarte RN - 01/31/2024 1255 EDT [facility] orders per [facility] [place] order placed Send out lab request faxed Request blood doc appt for mar 13 documented in this encounter Plan of Treatment Upcoming Encounters Date Type Department Care Team (Late st Contact Info) Description 04/02/2024 10:30 EDT Appointment [facility] Interventional Radiology Unit [address] [place] [address] [phone] 04/02/2024 15:15 EDT Office Visit [facility] Surgical Oncology - [address] [phone] Adolfo Carreno MD [address] [place] [address] [phone] 04/05/2024 9:30 EDT Telemedicine [facility] Palliative Care Services [address] [place] [address] [phone] Chichi Woods MD [address] [place] [address] [phone] 04/11/2024 15:00 EDT Telemedicine [facility] Hematology & Oncology [address] [phone] Alisson Carreon MD [address] [place] [address] [phone] 04/13/2024 13:30 EDT Appointment [facility] Hematology & Oncology [address] [phone] 04/13/2024 14:00 EDT Appointment [facility] Hematology & Oncology [address] [phone] 04/16/2024 10:00 EST Telemedicine [facility] Palliative Care Services [address] [place] [address] [phone] Chichi Woods MD [address] [place] [address], [address] [place] [phone] 04/24/2024 9:00 EST Appointment [facility] Radiology CT Outpatient - [address] [id number] 04/24/2024 11:00 EST Appointment [facility] Breast Imaging - [facility] [address] [place], [place] [address] 04/27/2024 12:00 EST Appointment [facility] Hematology & Oncology - [address] [phone] 05/02/2024 15:00 EST Telemedicine [facility] Hematology & Oncology - [address] [address] Alisson Carreon MD [address] [place] [address], [facility] Level 2 [place] [phone] 05/04/2024 10:15 EST Ancillary Procedure [facility] Cardiology [place] [address] 05/04/2024 11:30 EST Appointment [facility] Hematology & Oncology - [address] [phone] 05/04/2024 12:00 EST Appointment [facility] Hematology & Oncology [address] [phone] 06/12/2024 13:00 EST Appointment [facility] Radiology CT - [address] [phone] documented as of this encounter Results * MISCELLANEOUS TEST, NON SOLER (02/07/2024 17:55 EDT) Test Name Michael Garcia CCx 02/20/2024 9:52 EDT [facility] Blood VENOUS BLOOD / Unknown Venipuncture / Unknown 02/07/2024 17:55 EDT 02/07/2024 17:55 EDT Narrative [facility] - 02/20/2024 9:52 EDT See scanned/supplementary report. Alisson Carreon MD CHEMISTRY & BLOOD G ORDERABLES [facility] [address] [place] [address] documented in this encounter Visit Diagnoses Diagnosis Malignant neoplasm of right female breast, unspecified estrogen receptor status, unspecified site of breast ([facility])- Primary documented in this encounter Care Teams Stamp Clerk Relationship Specialty Start Date End Date Linda Blancas MD [facility] [address] [place] [address] PCP - General 01/06/11 Adolfo Carreno MD [address] [place] [address], [facility] [address] [place] [phone] General Surgery 04/26/19 documented as of this encounter
--- OUTSIDE RECORDS SUMMARY | 2024-03-20 14:33 | XMS_ITS | Encounter Summary ---
Author Organization [facility] Address [address] [place] [address] Care Team Providers Care Ocular Care Technician Name Role Phone Linda Blancas MD Primary Care Provider [phone] Adolfo Carreno MD Unavailable [phone] Reason for Visit * Reason Onset Date Comments Results 02/08/2024 Encounter Details Date Type Department Care Team (Late st Contact Info) Description 02/08/2024 Telephone [facility] Gastroenterology - [facility] [address] [place], [place] [address] Yovana Bowman, SHELLEY Results Social History Tobacco Use Types Packs/Day Years Used Date Smoking Tobacco: Never Passive Smoke Exposure: Never Smokeless Tobacco: Never Alcohol Use Standard Drinks/Week Comments Not Currently 1 (1 standard drink = 0.6 oz pur e alcohol) [facility] Utilities Answer Date Recorded In the past 12 months has e [employer], gas, oil, or water [employer] threatened to shut off services in your [...] Telephone Encounter - Yovana Bowman RN - 02/08/2024 1243 EDT Date Weight (lb) Spironolactone Furosemide Na K Cr GFR 01/25/24 100 mg 20 mg 136 5.3 0.54 104 01/31/24 109 100 mg 40 mg 134 4.0 0.54 104 02/07/24 115 100 mg 40 mg 132 4.1 0.62 101 documented in this encounter Plan of Treatment Upcoming Encounters Date Type Department Care Team (Late st Contact Info) Description 04/02/2024 10:30 EDT Appointment [facility] Interventional Radiology Unit [address] [place] [address] [phone] 04/02/2024 15:15 EDT Office Visit [facility] Surgical Oncology - [address] [phone] Adolfo Carreno MD [address] [place] [address] 2 [place] [phone] 04/05/2024 9:30 EDT Telemedicine [facility] Palliative Care Services [address] [place] [address] [phone] hCichi Woods MD [address] [place] [address] [phone] 04/11/2024 15:00 EDT Telemedicine [facility] Hematology & Oncology [address] [phone] Alisson Carreon MD [address] [place] [address] [phone] 04/13/2024 13:30 EDT Appointment [facility] Hematology & Oncology [address] [phone] 04/13/2024 14:00 EDT Appointment [facility] Hematology & Oncology [address] [phone] 04/16/2024 10:00 EST Telemedicine [facility] Palliative Care Services [address] [place] [address] [phone] Chichi Woods MD [address] [place] [address], [address] [phone] 04/24/2024 9:00 EST Appointment [facility] Radiology CT Outpatient - [address] [phone] 04/24/2024 11:00 EST Appointment [facility] Breast Imaging - [facility] 1 [place], [place] 9338[address] 04/27/2024 12:00 EST Appointment [facility] Hematology & Oncology - [address] [phone] 05/02/2024 15:00 EST Telemedicine [facility] Hematology & Oncology - [address] [phone] Alisson Carreon MD [address] [place] [address], Level [address] [place] [phone] 05/04/2024 10:15 EST Ancillary Procedure [facility] Cardiology [place] [address] 05/04/2024 11:30 EST Appointment [facility] Hematology & Oncology - [address] [phone] 05/04/2024 12:00 EST Appointment [facility] Hematology & Oncology [address] [phone] 06/12/2024 13:00 EST Appointment [facility] Radiology CT - [address] [phone] documented as of this encounter Visit Diagnoses Not on filedocumented in this encounter Care Teams Ocular Care Technician Relationship Specialty Start Date End Date Linda Blancas MD [facility] [address] [place] [address] PCP - General 01/06/11 Adolfo Carreno MD [address] [place] [address], [facility], Level [address] [place] [phone] General Surgery 04/26/19 documented as of this encounter
--- OUTSIDE RECORDS SUMMARY | 2024-03-20 14:33 | XMS_ITS | Encounter Summary ---
Author Organization [facility] Address [address] [place] [address] Care Team Providers Care Document Analyst Name Role Phone Linda Blancas MD Primary Care Provider [phone] Adolfo Carreno MD Unavailable [phone] Reason for Visit * Radiology Services (Routine/Next Available) - Authorization Not Required Specialty Diagnoses / Procedures Referred By Doug t Referred To Contact Diagnoses Ascites Procedures IR PARACENTESIS-RADIOLOGY IR LIMITED U/S ABDOMEN IR PARACENTESIS-RADIOLOGY Quita Babb PA-C 111 [facility] 2 [place] [address] [facility] Referral ID Status Reason Start Date Expiration Date Visits Requested Visits Authorized [id number] Authorization Not Required 01/30/2024 1 1 Encounter Details Date Type Department Care Team (Late st Contact Info) Description 01/31/2024 6:51 EDT Hospital Encounter [facility] Interventional Radiology Unit [address] [place], [place] [id number] Uche Wilson PA-C 111 [facility] 1 [place] [address] Other ascites (Primary Dx); Ascites Discharge Disposition: Home or Self Care Social History Tobacco Use Types Packs/Day Years Used Date Smoking Tobacco: Never Passive Smoke Exposure: Never Smokeless Tobacco: Never Alcohol Use Standard Drinks/Week Comments Not Currently 1 (1 standard drink = 0.6 oz pur e alcohol) [facility] Utilities Answer Date Recorded In the [...] time in the past 12 m [facility], were you homeless or living in a senior living (including now)? No 01/10/2024 Interpersonal Safety Answer [...] this encounter Discharge Instructions * Discharge Instructions* Quita Garcia RN - 01/31/2024 7:57 EDT Interventional Radiology Discharge Instructions Date: 01/31/2024 Procedure: Paracentesis (removal of fluid from your abdomen) Provider: Neil Wilson PA-C and Guerrero Palumbo MD FSIR Total fluid volume removed today: 2.0 L Aftercare: Activity: Rest today. Do not lift [...] previously been told to avoid this medication. Dressing/wound care Your provider used Dermabond, a skin glue, to hold the wound edges together. It looks like a secondskin or film on the skin. The glue usually remains in place for 5-10 days before it falls off. Do not pick at the glue. It will fall off as your skin is renewed. Keep the dressing dry. Remove the dressing [...] after your procedure. When to contact the [facility] (call 911 if symptoms are severe): [...] the symptoms above, please call: Tuesday-Tuesday 8-4:30: [phone] (option 2) This phone number will connect you to the nurse triage line. Please note, phone calls after 4 pm may not be returned until the next business day. After hours and weekends: For urgent issues, you may speak to a physician environmental field services technician by dialing [phone] and ask to speak with the president trust company environmental field services technician. documented in this encounter Medications at Time [...] receptor status, unspecified site of breast ([facility]) Take 1 Tablet by mouth 2 times daily as needed for Muscle Spasms. 60 Tablet 1 01/19/2024 furosemide (LASIX) 20 mg tablet Take 2 Tablets by mouth daily. 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 Patient name and verified using armbandand verbally. Consent completed and verified. Patient is alert and oriented x 4, able to follow commands with all extremities, able to make needs known. Patients allergies, medications and lab results reviewed. Patient educated on procedure, patient verbalized understanding. Patient placed in supine position on stretcher. Vital signs assessed. A pre-procedure ultrasound was completed to assess fluid volume, limited volume demonstrated with no window for safe access. Procedure not completed. A pre-procedure ultrasound was completed to assess fluid volume. Procedure necessity completed. Sterile prep of patient's right abdomen with duraprep disinfecting solution by [facility] in the usual sterile fashion in accordance with manufacturers recommendations. Ultrasound guidance utilized to access fluid, catheter placed without incident. Total fluid volume removed: 2000 mLs Fluid color: yellow Catheter removed and dermabond applied puncture site. Procedure completed by Uche Wilson PA-C with Dr. Palumbo as supervising provider. Procedure well tolerated by patient. Vital signs stable. Discharge instructions reviewed with patient, no further questions at this time. Patient escorted to the waiting area in stable condition. Discharged to home. documented in this encounter Procedure Notes * Uche Wilson PA-C - 01/31/2024 0730 EDT IR Procedure Note Procedure: U/S guided paracentesis Date Performed: 01/31/2024 Radiologist/Erp Technical Lead(s): MD Linwood/GRISEL Wilson Sedation/Anesthesia: Local Time Out: A time-out was completed prior to procedure verifying correct patient, procedure, site, positioning, and special equipment if applicable. Estimated Blood Loss: Unless otherwise noted, there was no blood loss, specimens removed, cultures obtained, or drains retained. Specimens: N/A Fluoroscopy Time: See dictated procedure note Contrast Volume: none Complications: none Condition: stable Post Procedure Diagnosis: AScites Findings: 2 L turbid fluid Recommendations: F/U IR PRN Uche Wilson PA-C 01/31/2024 8:54 documented in this encounter Plan of Treatment Upcoming Encounters Date Type Department Care Team (Late st Contact Info) Description 04/02/2024 10:30 EDT Appointment [facility] Interventional Radiology Unit [address] [place] [address] [phone] 04/02/2024 15:15 EDT Office Visit [facility] Surgical Oncology [address] [phone] Adolfo Carreno MD [address] [place] [address] 2 [place] [phone] 04/05/2024 9:30 EDT Telemedicine [facility] - [facility] Palliative Care Services [address] [place] [address] [phone] Chichi Woods MD [address] [place] [address], [address] [phone] 04/11/2024 15:00 EDT Telemedicine [facility] Hematology & Oncology [address] 197101 Alisson Carreon MD [address] [place] [address] 2 [place] [phone] 04/13/2024 13:30 EDT Appointment [facility] Hematology & Oncology [address] [phone] 04/13/2024 14:00 EDT Appointment [facility] Hematology & Oncology - [address] [phone] 04/16/2024 10:00 EST Telemedicine [facility] - [facility] Palliative Care Services [address] [place] [address] [phone] Chichi Woods MD 111 [facility], [address] [phone] 04/24/2024 9:00 EST Appointment [facility] Radiology CT Outpatient - [address] [id number] 04/24/2024 11:00 EST Appointment [facility] Breast Imaging - [facility] S [address] [phone] 04/27/2024 12:00 EST Appointment [facility] Hematology & Oncology - [address] [phone] 05/02/2024 15:00 EST Telemedicine [facility] Hematology & Oncology - [address] 460321 Alisson Carreon MD [address] [place] [address], Level 2 [place] [phone] 05/04/2024 10:15 EST Ancillary Procedure [facility] Cardiology [place] [address] [place] [address] 05/04/2024 11:30 EST Appointment [facility] Hematology & Oncology - [address] 197981 05/04/2024 12:00 EST Appointment [facility] Hematology & Oncology [address] 395231 06/12/2024 13:00 EST Appointment [facility] Radiology CT - [address] [phone] documented as of this encounter Procedures Procedure Name Priority Date/Time Associated Diagnosis Comments IR PARACENTESIS-RADIOL OGY Routine 01/31/2024 8:33 EDT Ascites documented in this encounter Results * IR PARACENTESIS-RADIOLOGY (01/31/2024 8:33 EDT) Anatomical [...] above interpretation and agree with the findings. [id number] Narrative 01/31/2024 11:44 EDT IR PARACENTESIS-RADIOLOGY ??01/31/2024 [...] procedure well without complication. Resulting Agency Comment [id number] Procedure Note Guerrero Palumbo MD - 01/31/2024 [...] the above interpretation andagree with the findings. [id number] Quita Babb PA-C IMG IR ORDERAB LES documented in this encounter Visit Diagnoses Diagnosis Other ascites- Primary documented in this encounter Care Teams Document Analyst Relationship Specialty Start Date End Date Linda Blancas MD [facility] [address] [place], [place] [address] PCP - General 01/06/11 Adolfo Carreno MD [address] [place] [address], [address] 2 [place] [address] General Surgery 04/26/19 documented as of this encounter
--- OUTSIDE RECORDS SUMMARY | 2024-03-20 14:33 | XMS_ITS | Encounter Summary ---
Author Organization [facility] Address [address] [place] [address] Care Team Providers Care Pelota Maker Name Role Phone Linda Blancas MD Primary Care Provider Adolfo Carreno MD Unavailable [phone] Reason for Visit * Reason Onset Date Comments COVID-19 02/10/2024 Encounter Details Date Type Department Care Team (Late st Contact Info) Description 02/10/2024 Telephone [facility] Hematology & Oncology - [address] [phone] Alisson Carreon MD 111 [facility], Level 2 [place] [address] COVID-19 Social History Tobacco Use Types Packs/Day Years Used Date Smoking Tobacco: Never Passive Smoke Exposure: Never Smokeless Tobacco: Never Alcohol Use Standard Drinks/Week Comments Not Currently 1 (1 standard drink = 0.6 oz pur e alcohol) [facility] Utilities Answer Date Recorded In the past 12 months has [employer] electric, gas, oil, or water company threatened [...] time in the past 12 m [facility], were you homeless or living [...] encounter Miscellaneous Notes * Telephone Encounter - Ana Laura Winn RN - 02/10/2024 1351 EDT Called pt and spoke with , Nitish. Nitish tested positive for covid today, they were looking for recommendations on precautions. Encouraged them to sleep separately if possible, keeping their distance, masking if possible, good hand hygiene, and disinfecting daily if able. Let them know that her counts are good since we have been holding treatment, so if able to follow the above recs, that will be helpful. Nitish did ask about prophylactic medication, urged him to contact her PCP, since [place] is [place] [facility] [place] and there might be an interaction. Nitish appreciated the call and will let us know how things go next week. * Telephone Encounter - Tomeka Love - 02/10/2024 1152 EDT [facility] Call Active Symptoms/Disease Management Call Reason: Patient's tested positive for Covid this morning (day 3 of symptoms). She is currently testing negative. She would like to know what precautions she should take moving forward. Next Appointment: 02/21/2024 Last Office Visit: 01/31/2024 Nadeen Blood PA-C Last Telehealth Encounter: 01/06/2024 Alisson Carreon MD Send ROUTINE Priority to Hem/Onc Nurse Rodger Love 02/10/2024 11:52 documented in this encounter Plan of Treatment Upcoming Encounters Date Type Department Care Team (Late st Contact Info) Description 04/02/2024 10:30 EDT Appointment [facility] Interventional Radiology Unit [address] [place] [address] 04/02/2024 15:15 EDT Office Visit [facility] Surgical Oncology - [facility] [address] [place] [phone] Adolfo Carreno MD 111 [facility], Level [address] [place] [phone] 04/05/2024 9:30 EDT Telemedicine [facility] Palliative Care Services [address] [place] [address] [phone] Chichi Woods MD [address] [place] [phone] 04/11/2024 15:00 EDT Telemedicine [facility] Hematology & Oncology - [address] [phone] Alisson Carreon MD [address] [place] [address] 2 [place] [phone] 04/13/2024 13:30 EDT Appointment [facility] Hematology & Oncology - [address] [phone] 04/13/2024 14:00 EDT Appointment [facility] Hematology & Oncology [address] [phone] 04/16/2024 10:00 EST Telemedicine [facility] Palliative Care Services [address] [place] [address] Chichi Woods MD [address] [place] [address] [phone] 04/24/2024 9:00 EST Appointment [facility] Radiology CT Outpatient - [address] [phone] 04/24/2024 11:00 EST Appointment [facility] Breast Imaging - [address] 197321 04/27/2024 12:00 EST Appointment [facility] Hematology & Oncology [address] [address] 05/02/2024 15:00 EST Telemedicine [facility] Hematology & Oncology [address] [address] Alisson Carreon MD [address] [place] [address] 2 [place] [phone] 05/04/2024 10:15 EST Ancillary Procedure [facility] Cardiology - [address] [place] [address] 05/04/2024 11:30 EST Appointment [facility] Hematology & Oncology [address] [address] 05/04/2024 12:00 EST Appointment [facility] Hematology & Oncology [address] 350651 06/12/2024 13:00 EST Appointment [facility] Radiology CT - [address] 151331 documented as of this encounter Visit Diagnoses Not on filedocumented in this encounter Care Teams Pelota Maker Relationship Specialty Start Date End Date Linda Blancas MD [facility] [address] [place] [address] PCP - General 01/06/11 Adolfo Carreno MD [address] [place] [address] 2 [place] [phone] General Surgery 04/26/19 documented as of this encounter
--- OUTSIDE RECORDS SUMMARY | 2024-03-20 14:33 | XMS_ITS | Encounter Summary ---
Author Organization [facility] Address [address] [place] [address] Care Team Providers Care Tripe Washer Name Role Phone Linda Blancas MD Primary Care Provider [phone] Adolfo Carreno MD Unavailable [phone] Encounter Details Date Type Department Care Team (Late st Contact Info) Description 02/08/2024 Orders Only [facility] Cancer Center Hematology & Oncology - [address] [phone] Kendra Worthy, [place] Social History Tobacco Use Types Packs/Day Years Used Date Smoking Tobacco: Never Passive Smoke Exposure: Never Smokeless Tobacco: Never Alcohol Use Standard Drinks/Week Comments Not Currently 1 (1 standard drink = 0.6 oz pur e alcohol) [facility] Utilities Answer Date Recorded In the [...] as of this encounter Progress Notes * Kendra Worthy RN - 02/08/2024 0913 EDT Treatment date changed to 03/20 per scheduling request. documented in this encounter Plan of Treatment Upcoming Encounters Date Type Department Care Team (Late st Contact Info) Description 04/02/2024 10:30 EDT Appointment [facility] Interventional Radiology Unit [address] [place] [phone] 04/02/2024 15:15 EDT Office Visit [facility] Surgical Oncology - [address] [phone] Adolfo Carreno MD [address] [place] [address] [phone] 04/05/2024 9:30 EDT Telemedicine [facility] Palliative Care Services [address] [place] [address] [phone] Chichi Woods MD [address] [place] [phone] 04/11/2024 15:00 EDT Telemedicine [facility] Hematology & Oncology [address] 020111 Alisson Carreon MD [address] [place] [address] [phone] 04/13/2024 13:30 EDT Appointment [facility] Hematology & Oncology [address] [phone] 04/13/2024 14:00 EDT Appointment [facility] Hematology & Oncology [address] 483501 04/16/2024 10:00 EST Telemedicine [facility] Palliative Care Services [address] [place] [address] [phone] Chichi Woods MD [address] [place] [phone] 04/24/2024 9:00 EST Appointment [facility] Radiology CT Outpatient - [address] 040101 04/24/2024 11:00 EST Appointment [facility] Breast Imaging - [facility] S [place] [address] [place], [place] [address] 04/27/2024 12:00 EST Appointment [facility] Hematology & Oncology [address] [phone] 05/02/2024 15:00 EST Telemedicine [facility] Hematology & Oncology [address] [phone] Alisson Carreon MD [address] [place] [address], Level 2 [place] [phone] 05/04/2024 10:15 EST Ancillary Procedure [facility] Cardiology - [address] [place], [place] [phone] 05/04/2024 11:30 EST Appointment [facility] Hematology & Oncology [address] 174111 05/04/2024 12:00 EST Appointment [facility] Hematology & Oncology [address] 679461 06/12/2024 13:00 EST Appointment [facility] Radiology CT - [address] [phone] documented as of this encounter Visit Diagnoses Not on filedocumented in this encounter Care Teams Tripe Washer Relationship Specialty Start Date End Date Linda Blancas MD [address] [place] [address] 30 [place] [address] PCP - General 01/06/11 Adolfo Carreno MD 111 [facility], Level 2 [place] [phone] General Surgery 04/26/19 documented as of this encounter
--- OUTSIDE RECORDS SUMMARY | 2024-03-20 14:33 | XMS_ITS | Encounter Summary ---
Author Organization [facility] Address [address] [place] [address] Care Team Providers Care Layer Off Name Role Phone Linda Blancas MD Primary Care Provider [phone] Adolfo Carreno MD Unavailable [phone] Reason for Referral * Radiology Services (Routine/Next Available) - Authorization Not Required Specialty Diagnoses / Procedures Referred By Contac t Referred To Contact Diagnoses Diffuse alveolar damage (HCC-CMS) Procedures CT CHEST WO CONTRAST Pavan Bianchi MD [address] [phone] [facility] Referral ID Status Reason Start Date Expiration Date Visits Requested Visits Authorized [id number] Authorization Not Required 01/25/2024 1 1 Reason for Visit * Radiology Services (Routine/Next Available) - Authorization Not Required Specialty Diagnoses / Procedures Referred By Contac t Referred To Contact Diagnoses Diffuse alveolar damage (HCC-CMS) Procedures CT CHEST WO CONTRAST Pavan Bianchi MD [address] [address] [facility] Referral ID Status Reason Start Date Expiration Date Visits Requested Visits Authorized [id number] Authorization Not Required 01/25/2024 1 1 Encounter Details Date Type Department Care Team (Latest Contact Info) Description 02/07/2024 8:43 EDT - 02/07/2024 12:22 EDT Hospital Encounter Malorie Mcknight [place] [address] [place] [address] Diffuse alveolar damage (HCC-CMS) Discharge Disposition: Home or Self Care Social History Tobacco Use Types Packs/Day Years Used Date Smoking Tobacco: Never Passive Smoke Exposure: Never Smokeless Tobacco: Never Alcohol Use Standard Drinks/Week Comments Not Currently 1 (1 standard drink = 0.6 oz pur e alcohol) [facility] Utilities Answer Date Recorded In [...] any time in the past 12 m [facility], were you homeless or living in a [...] receptor status, unspecified site of breast ([facility]) Take 1 Tablet by mouth 2 times daily as needed for Muscle Spasms. 60 Tablet 1 01/19/2024 furosemide (LASIX) 20 mg tablet Take 2 Tablets by mouth daily. 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, 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[facility]) Take 3 mL by nebulization every 6 [...] 01/19/2024 02/18/2024 prochlorperazine (COMPAZINE) 10 mg tabletIndications:Ani hale malignant [...] Contact Info) Description 04/02/2024 10:30 EDT Appointment [facility] Interventional Radiology Unit [address] [place] [address] [phone] 04/02/2024 15:15 EDT Office Visit [facility] Surgical Oncology - [address] [phone] Adolfo Carreno MD [address] [place] [phone] 04/05/2024 9:30 EDT Telemedicine [facility] Palliative Care Services [address] [place] [address] [phone] Chichi Woods MD [address] [place] [phone] 04/11/2024 15:00 EDT Telemedicine [facility] Hematology & Oncology - [address] 914951 Alisson Carreon MD [address] [place] [phone] 04/13/2024 13:30 EDT Appointment [facility] Hematology & Oncology - [address] 143941 04/13/2024 14:00 EDT Appointment [facility] Hematology & Oncology [address] [phone] 04/16/2024 10:00 EST Telemedicine [facility] Palliative Care Services [address] [place] [address] 203001 Chichi Woods MD [address] [place] [phone] 04/24/2024 9:00 EST Appointment [facility] Radiology CT Outpatient - [address] [id number] 04/24/2024 11:00 EST Appointment [facility] Breast Imaging - [facility] S [place] 1 [place] [address] 04/27/2024 12:00 EST Appointment [facility] Hematology & Oncology - [address] [phone] 05/02/2024 15:00 EST Telemedicine [facility] Hematology & Oncology - [address] [phone] Alisson Carreon MD [address] [place] [address], Level 2 [place] [phone] 05/04/2024 10:15 EST Ancillary Procedure [facility] Cardiology [place] [place] [address] 05/04/2024 11:30 EST Appointment [facility] Hematology & Oncology - [address] 515231 05/04/2024 12:00 EST Appointment [facility] Hematology & Oncology - [address] 690241 06/12/2024 13:00 EST Appointment [facility] Radiology CT - [address] 919441 documented as of this encounter Procedures Procedure Name Priority Date/Time Associated Diagnosis Comments CT CHEST WO CONTRAST Routine 02/07/2024 8:54 EDT Diffuse alveolar damage (HCC-CMS) documented in this encounter Results * CT CHEST WO CONTRAST (02/07/2024 8:54 [...] similar distribution and difficult to entirely exclude. [id number] Narrative 02/07/2024 10:[address] CHEST WO [...] posterior right sixth rib. Resulting Agency Comment [id number] Procedure Note Mallorie Andrews MD - 02/07/2024 [...] a similardistribution and difficult to entirely exclude. [id number] Pavan Bianchi MD IMG CT ORDERABLES documented in this encounter Visit Diagnoses Diagnosis Diffuse alveolar damage (HCC-CMS) Other diseases of lung, not elsewhere classified documented in this encounter Care Teams Layer Off Relationship Specialty Start Date End Date Linda Blancas MD [facility] [address] [place] [address] PCP - General 01/06/11 Adolfo Carreno MD [address] [place] [address], Level 2 [place] [phone] General Surgery 04/26/19 documented as of this encounter
--- OUTSIDE RECORDS SUMMARY | 2024-03-20 14:33 | XMS_ITS | Encounter Summary ---
Author Organization [facility] Address [address] [place] [address] Care Team Providers Care Human Resources Training Manager Name Role Phone Linda Blancas MD Primary Care Provider [phone] Adolfo Carreno MD Unavailable [phone] Reason for Visit * Reason Onset Date Comments Results 01/31/2024 Encounter Details Date Type Department Care Team (Late st Contact Info) Description 01/31/2024 Telephone [facility] Gastroenterology - [facility] [address] [place], [place] [address] Yovana Bowman, SHELLEY Results Social History Tobacco Use Types Packs/Day Years Used Date Smoking Tobacco: Never Passive Smoke Exposure: Never Smokeless Tobacco: Never Alcohol Use Standard Drinks/Week Comments Not Currently 1 (1 standard drink = 0.6 oz pur e alcohol) [facility] Utilities Answer Date Recorded In the past 12 months has e [employer], gas, oil, or water [employer] threatened to shut off services in your [...] Telephone Encounter - Yovana Bowman RN - 01/31/2024 1313 EDT Date Weight (lb) Spironolactone Furosemide Na K Cr GFR 01/25/24 100 mg 20 mg 136 5.3 0.54 104 01/31/24 109 100 mg 40 mg 134 4.0 0.54 104 The patient had a paracentesis today ( 2 liters of fluid removed-per ). Her girth is 33 inches which is about the same as it has been. She was not quite as uncomfortable ( in her abdomen) since increasing the furosemide to 40 mg per day. documented in this encounter Plan of Treatment Upcoming Encounters Date Type Department Care Team (Late st Contact Info) Description 04/02/2024 10:30 EDT Appointment [facility] Interventional Radiology Unit [address] [place] [address] [phone] 04/02/2024 15:15 EDT Office Visit [facility] Surgical Oncology - [address] [phone] Adolfo Carreno MD [address] [place] [address] 2 [place] [phone] 04/05/2024 9:30 EDT Telemedicine [facility] - [facility] Palliative Care Services [address] [place] [address] [phone] Chichi Woods MD [address] [place] [address] [phone] 04/11/2024 15:00 EDT Telemedicine [facility] Hematology & Oncology [address] [phone] Alisson Carreon MD [address] [place] [address] 2 [place] [phone] 04/13/2024 13:30 EDT Appointment [facility] Hematology & Oncology [address] 082771 04/13/2024 14:00 EDT Appointment [facility] Hematology & Oncology - [address] [address] 04/16/2024 10:00 EST Telemedicine [facility] - [facility] Palliative Care Services [address] [place] [address] Chichi Woods MD [address] [place] [address], [address] [phone] 04/24/2024 9:00 EST Appointment [facility] Radiology CT Outpatient - [address] [address] 04/24/2024 11:00 EST Appointment [facility] Breast Imaging - [facility] [place] [address] [place], [place] 121481 04/27/2024 12:00 EST Appointment [facility] Hematology & Oncology - [address] [phone] 05/02/2024 15:00 EST Telemedicine [facility] Hematology & Oncology - [address] [address] Alisson Carreon MD [address] [place] [address], Level 2 [place] [phone] 05/04/2024 10:15 EST Ancillary Procedure [facility] Cardiology [place] [address] 05/04/2024 11:30 EST Appointment [facility] Hematology & Oncology - [address] [address] 05/04/2024 12:00 EST Appointment [facility] Hematology & Oncology - [address] 801551 06/12/2024 13:00 EST [facility] [place] [address] [place] [address] documented as of this encounter Visit Diagnoses Not on filedocumented in this encounter Care Teams Human Resources Training Manager Relationship Specialty Start Date End Date Linda Blancas MD [facility] [address] [place] [address] PCP - General 01/06/11 Adolfo Carreno MD 111 [facility], [facility], Level [address] [place] [phone] General Surgery 04/26/19 documented as of this encounter
--- OUTSIDE RECORDS SUMMARY | 2024-03-20 14:33 | XMS_ITS | Encounter Summary ---
Author Organization [facility] Address [address] [place] [address] Care Team Providers Care Camp Recreation Specialist Name Role Phone Linda Blancas MD Primary Care Provider [phone] Adolfo Carreno MD Unavailable [phone] Reason for Visit * Reason Onset Date Comments Follow-up 02/15/2024 Encounter Details Date Type Department Care Team (Late st Contact Info) Description 02/15/2024 Telephone [facility] Center Hematology & Oncology - [facility] [address] [place], [place] [phone] Alisson Carreon MD 111 [facility], [address] [place] [address] Follow-up Social History Tobacco Use Types Packs/Day Years Used Date Smoking Tobacco: Never Passive Smoke Exposure: Never Smokeless Tobacco: Never Alcohol Use Standard Drinks/Week Comments Not Currently 1 (1 standard drink = 0.6 oz pur e alcohol) [facility] Utilities Answer Date Recorded In the past 12 months has [employer] electric, gas, oil, or water company [...] any time in the past 12 m [facility], were you homeless or living in a alf (including now)? No 01/10/2024 Interpersonal Safety Answer [...] Dispensed Refills Start Date End Da te prochlorperazine (COMPAZINE) 10 mg tablet Take 1 Tablet by mouth every 6 hours as needed for Nausea. 30 Tablet 3 02/15/2024 02/15/2024 documented in this encounter Miscellaneous Notes * Telephone Encounter - Yunior Thurman RN - 02/16/2024 1053 EDT Geological Engineer called back patient and to discuss our conversation yesterday. As of today patient and have no concerns regarding communication from our office. We discussed that Sendy started her Lagevrio last night and is feeling better this morning. She contacted Infectious Disease (Dr. Ferrell) who recommended she start Atovaquone with recently testing positive for COVID. Geological Engineer will update Dr. Carreon and Nadeen Blood about everything and the plan moving forward given patients upcoming appointments with Dr. Carreon on 02/20. Patient knows to call if symptoms worsen. * Telephone Encounter - Yunior Thurman RN - 02/15/2024 1648 EDT Geological Engineer called back patient and who were upset at our requests to follow- up with her PCP. Geological Engineer explained, that wasn't the communication we had earlier and that I had communicated with Nadeen Blood and our pharmacist about patients current symptoms and her PCP's recommendations of starting Lagevrio. I let them know I received communication back from both Alina Blood and our pharmacist who confirmed there were no concerns or interactions with other meds and patient should start taking. Before being disconnected with patient, patients symptoms continue as (productive cough with phlegm, and moments of fatigue). Patient has not had a fever. Geological Engineer will confer with Dr. Carreon and Nadeen Blood on patient and husbands complaints and further communication. * Telephone Encounter - Mony Rawls - 02/15/2024 1554 EDT Ptshilo's called very upset about the information he received from nursing earlier today. Hewants to speak with the provider that is covering for Dr. Carreon, he does not want to speak with another nurse at this point. Caller wants the team to be aware of what is going on, not just one person. * Telephone Encounter - Yunior Thurman RN - 02/15/2024 1424 EDT Geological Engineer called patient back. Patient tested positive for COVID yesterday 02/13. She mentions she started having symptoms (cough w/ phlegm, headache, and fatigue) on Tuesday. Since, her cough and fatigue is about the same, but headache has subsided. Patient mentions she just finished up Atovaquone on 02/10 as well as her prednisone taper that pulmonary was managing. She reached out to her PCP about her COVID positive test and symptoms and they prescribed her with Lagevrio as patient is on eliquis. Patient wants to make sure there are no interactions with this medication and that this is safe to take. * Telephone Encounter - Rashawn Drew - 02/15/2024 1306 EDT Patient calling to advise she was just discharged from 12 days stay at hospital recently, patient just tested positive for COVID on yesterday 02/13, asking given her back ground should she be doing something other than recovering at home? Patient just finished taking atovaquone on 02/10 Also, PCP wrote script for 5 day drug, Lagevrio due to being on Eliquis, and asking for some guidance from Hem/Onc on if she should take Lagevrio or if she should do something different? Asking for return call to discuss further documented in this encounter Plan of Treatment Upcoming Encounters Date Type Department Care Team (Late st Contact Info) Description 04/02/2024 10:30 EDT Appointment [facility] Interventional Radiology Unit [address] [place] [address] [phone] 04/02/2024 15:15 EDT Office Visit [facility] Surgical Oncology - [address] [address] Adolfo Carreno MD [address] [place] [address] [phone] 04/05/2024 9:30 EDT Telemedicine [facility] Palliative Care Services [address] [place] [address] 235471 Chichi Woods MD [address] [place] [phone] 04/11/2024 15:00 EDT Telemedicine [facility] Hematology & Oncology - [address] [phone] Alisson Carreon MD [address] [place] [address] [phone] 04/13/2024 13:30 EDT Appointment [facility] Hematology & Oncology [address] [phone] 04/13/2024 14:00 EDT Appointment [facility] Hematology & Oncology - [address] 701931 04/16/2024 10:00 EST Telemedicine [facility] Palliative Care Services [address] [place] [address] [phone] Chichi Woods MD [address] [place] [address] [phone] 04/24/2024 9:00 EST Appointment [facility] Radiology CT Outpatient - [address] [address] 04/24/2024 11:00 EST Appointment [facility] Breast Imaging - [facility] [address] [address] 04/27/2024 12:00 EST Appointment [facility] Hematology & Oncology - [address] [address] 05/02/2024 15:00 EST Telemedicine [facility] Hematology & Oncology - [address] [address] Alisson Carreon MD [address] [place] [address], Level [address] [place] [phone] 05/04/2024 10:15 EST Ancillary Procedure [facility] Cardiology - [place] [address] 05/04/2024 11:30 EST Appointment [facility] Hematology & Oncology [address] [phone] 05/04/2024 12:00 EST Appointment [facility] Hematology & Oncology [address] [address] 06/12/2024 13:00 EST Appointment [facility] Radiology CT - [address] 601951 documented as of this encounter Visit Diagnoses Not on filedocumented in this encounter Discontinued Medications Medication Sig Discontinue Reason Start Date End Da te prochlorperazine (COMPAZINE) 10 mg tabletIndications:Primar y malignant neoplasm of breast with metastasis (HCC-CMS) Take 1 Tablet by mouth every 6 hours as needed for Nausea. 10/17/2023 02/15/2024 prochlorperazine (COMPAZINE) 10 mg tablet Take 1 Tablet by mouth every 6 hours as needed for Nausea. Error 02/15/2024 02/15/2024 documented as of this encounter Care Teams Camp Recreation Specialist Relationship Specialty Start Date End Date Linda Blancas MD [facility] [address] [place] [address] PCP - General 01/06/11 Adolfo Carreno MD [address] [place] [address], [facility] 2 [place] [phone] General Surgery 04/26/19 documented as of this encounter
--- OUTSIDE RECORDS SUMMARY | 2024-03-20 14:33 | XMS_ITS | Encounter Summary ---
Author Organization [facility] Address [address] [place] [address] Care Team Providers Care Wire Cutter Name Role Phone Linda Blancas MD Primary Care Provider [phone] Adolfo Carreno MD Unavailable [phone] Reason for Visit * Reason Onset Date Comments Coordination Of Care 02/15/2024 Encounter Details Date Type Department Care Team (Late st Contact Info) Description 02/15/2024 Telephone [facility] Cancer Center Hematology & Oncology - [facility] [address] [place], [place] [phone] Alisson Carreon MD 111 [facility], Level 2 [place] [address] Coordination Of Care Social History Tobacco Use Types Packs/Day Years Used Date Smoking Tobacco: Never Passive Smoke Exposure: Never Smokeless Tobacco: Never Alcohol Use Standard Drinks/Week Comments Not Currently 1 (1 standard drink = 0.6 oz pur e alcohol) [facility] Utilities Answer Date Recorded In the past 12 months has [employer] electric, gas, oil, or water company threatened [...] any time in the past 12 m [facility], were you homeless or living [...] Encounter - Yunior Thurman RN - 02/15/2024 1438 EDT Bowling Ball Marker called back [facility] who wanted to update our office that Sendy's sample was collected and received on 02/08. Her report should finalize around 02/19. * Telephone Encounter - Lulu Mcgovern - 02/15/2024 1055 EDT HemOnc Incoming Call Home Health/Outside Hospital/Provider Facility Name or Home Health Agency: Other [facility] Name and title of caller: Bambi Phone number(and extension, if applicable): [phone] option 1 Reason for call: Other CDX is delayed so report will be delayed until 02.20.2024. Lulu Mcgovern 02/15/2024 10:57 documented in this encounter Plan of Treatment Upcoming Encounters Date Type Department Care Team (Late st Contact Info) Description 04/02/2024 10:30 EDT Appointment [facility] Interventional Radiology Unit [address] [place] [address] 04/02/2024 15:15 EDT Office Visit [facility] Surgical Oncology - [address] [phone] Adolfo Carreno MD 111 [facility], Level [address] [place] [phone] 04/05/2024 9:30 EDT Telemedicine [facility] Palliative Care Services [address] [place], [place] 8[address] Chichi Woods MD 111 [facility], [address] [place] [phone] 04/11/2024 15:00 EDT Telemedicine [facility] Hematology & Oncology - [address] 080291 Alisson Carreon MD [address] [place] [address], [facility] 2 [place] [phone] 04/13/2024 13:30 EDT Appointment [facility] Hematology & Oncology - [address] [phone] 04/13/2024 14:00 EDT Appointment [facility] Hematology & Oncology [address] [phone] 04/16/2024 10:00 EST Telemedicine [facility] - [facility] Palliative Care Services [address] [place] [address] Chichi Woods MD [address] [place] [phone] 04/24/2024 9:00 EST Appointment [facility] Radiology CT Outpatient - [address] [id number] 04/24/2024 11:00 EST Appointment [facility] Breast Imaging - [facility] S [address] 412861 04/27/2024 12:00 EST Appointment [facility] Hematology & Oncology - [address] 088291 05/02/2024 15:00 EST Telemedicine [facility] Hematology & Oncology - [address] 540991 Alisson Carreon MD [address] [place] [address], [facility] 2 [place] [phone] 05/04/2024 10:15 EST Ancillary Procedure [facility] Cardiology [place] [place] [address] 05/04/2024 11:30 EST Appointment [facility] Hematology & Oncology [address] [address] 05/04/2024 12:00 EST Appointment [facility] Hematology & Oncology [address] 846101 06/12/2024 13:00 EST Appointment [facility] Radiology CT - [address] 334731 documented as of this encounter Visit Diagnoses Not on filedocumented in this encounter Care Teams Wire Cutter Relationship Specialty Start Date End Date Linda Blancas MD [facility] [address] [place] [address] PCP - General 01/06/11 Adolfo Carreno MD [address] [place] [address], Level 2 [place] [phone] General Surgery 04/26/19 documented as of this encounter
--- OUTSIDE RECORDS SUMMARY | 2024-03-20 14:33 | XMS_ITS | Encounter Summary ---
Author Organization [facility] Address [address] [place] [address] Care Team Providers Care Coil Inspector Name Role Phone Linda Blancas MD Primary Care Provider [phone] Adolfo Carreno MD Unavailable [phone] Encounter Details Date Type Department Care Team (Late st Contact Info) Description 02/08/2024 Orders Only [facility] Cancer Center Hematology & Oncology - [address] [phone] Daily, Ana Laura RN Primary malignant neoplasm of breast with metastasis (HCC-CMS) (Primary Dx) Social History Tobacco Use Types Packs/Day Years Used Date Smoking Tobacco: Never Passive Smoke Exposure: Never Smokeless Tobacco: Never Alcohol Use Standard Drinks/Week Comments Not Currently 1 (1 standard drink = 0.6 oz pur e alcohol) [facility] Utilities Answer Date Recorded In the past 12 months has e Interventional Imaging, gas, oil, or water [employer] threatened to shut off services in your [...] Date Record ed How often does anyone, joselynstefaine aga family, hit, punch or physically hurt [...] as of this encounter Progress Notes * Tatum, SHELLEY Du - 02/08/2024 1219 EDT Made new standing lab order for ca 27.29, monthly draw. documented in this encounter Plan of Treatment Upcoming Encounters Date Type Department Care Team (Late st Contact Info) Description 04/02/2024 10:30 EDT Appointment [facility] Interventional Radiology Unit [address] [place] [address] [phone] 04/02/2024 15:15 EDT Office Visit [facility] Surgical Oncology - [address] 259161 Adolfo Carreno MD [address] [place] [phone] 04/05/2024 9:30 EDT Telemedicine [facility] Palliative Care Services [address] [place] [address] 811491 Chichi Woods MD [address] [place] [address] [phone] 04/11/2024 15:00 EDT Telemedicine [facility] Hematology & Oncology [address] [phone] Alisson Carreon MD [address] [place] [address] [phone] 04/13/2024 13:30 EDT Appointment [facility] Hematology & Oncology [address] [phone] 04/13/2024 14:00 EDT Appointment [facility] Hematology & Oncology [address] 444171 04/16/2024 10:00 EST Telemedicine [facility] Palliative Care Services [address] [place] [address] [phone] Chichi Woods MD [address] [place] [address], [place] [address] [place] [phone] 04/24/2024 9:00 EST Appointment [facility] Radiology CT Outpatient - [address] [phone] 04/24/2024 11:00 EST Appointment [facility] Breast Imaging - [address] 514461 04/27/2024 12:00 EST Appointment [facility] Hematology & Oncology - [address] [phone] 05/02/2024 15:00 EST Telemedicine [facility] Hematology & Oncology [address] [phone] Alisson Carreon MD [address] [place] [address], Level [address] [place] [phone] 05/04/2024 10:15 EST Ancillary Procedure [facility] Cardiology - [address] [place], [place] [phone] 05/04/2024 11:30 EST Appointment [facility] Hematology & Oncology [address] 780561 05/04/2024 12:00 EST Appointment [facility] Hematology & Oncology - [address] [phone] 06/12/2024 13:00 EST Appointment [facility] Radiology CT - [address] [phone] Scheduled Orders Name Type Priority Associated Diagnoses Orde r Schedule CA 27.29 Lab STAT Primary malignant neoplasm of breast with metastasis (HCC-CMS) Monthly for 15 Occurrences starting 02/08/2024 until 02/07/2025, 1 completed documented as of this encounter Results * (ABNORMAL) CA 27.29 (03/13/2024 7:38 EDT) CA 27.29 128.0(H) <38.0 U/mL 03/14/2024 11:14 EDT [facility] Comment: NOTE: Serum CA 27.29 concentration should not be interpreted as absolute evidence for the presence or absence of malignant disease. Assayed on Siemens ADVIA Lettuceaur XPT using chemiluminescent technology. ??Values obtained by using different assay methods cannot be used interchangeably. Blood VENOUS BLOOD / Unknown Venipuncture / Unknown 03/13/2024 7:38 EDT 03/13/2024 7:52 EDT Alisson Carreon MD CHEMISTRY & BLOOD G ORDERABLES [facility] [address] [place], [place] [address] documented in this encounter Visit Diagnoses Diagnosis Primary malignant neoplasm of breast with metastasis (HCC-CMS)- Primary documented in this encounter Care Teams Coil Inspector Relationship Specialty Start Date End Date Linda Blancas MD [facility] [address] [place] [address] PCP - General 01/06/11 Adolfo Carreno MD 111 [facility], [address] [place] [phone] General Surgery 04/26/19 documented as of this encounter
--- OUTSIDE RECORDS SUMMARY | 2024-03-20 14:33 | XMS_ITS | Encounter Summary ---
Author Organization [facility] Address [address] [place] [address] Care Team Providers Care Nurse Clinician Name Role Phone Linda Blancas MD Primary Care Provider [phone] Adolfo Carreno MD Unavailable Reason for Visit * Reason Onset Date Comments Appointment Related 02/02/2024 Encounter Details Date Type Department Care Team (Late st Contact Info) Description 02/02/2024 Telephone [facility] Hematology & Oncology - [facility] [address], [place] [phone] Alisson Carreon MD 111 [facility], Level 2 [place] [address] Appointment Related Social History Tobacco Use Types Packs/Day Years Used Date Smoking Tobacco: Never Passive Smoke Exposure: Never Smokeless Tobacco: Never Alcohol Use Standard Drinks/Week Comments Not Currently 1 (1 standard drink = 0.6 oz pur e alcohol) [facility] Utilities Answer Date Recorded In the past 12 months has [employer] electric, gas, oil, or water company threatened [...] time in the past 12 m [facility], were you homeless or living in a fpc (including now)? No 01/10/2024 Interpersonal Safety Answer [...] encounter Miscellaneous Notes * Telephone Encounter - Mary JaneBella mccloud - 02/02/2024 0838 EDT Spoke to pt to notify of 02/02 infusion being cx'd. Pt aware from appt with Alina Blood. Pt said they should be returning for tx on 02/20. Scheduling said they would check in with care team for new dates and call pt once the schedule had been worked out. documented in this encounter Plan of Treatment Upcoming Encounters Date Type Department Care Team (Late st Contact Info) Description 04/02/2024 10:30 EDT Appointment [facility] Interventional Radiology Unit [address] [place] [address] [phone] 04/02/2024 15:15 EDT Office Visit [facility] Surgical Oncology - [address] [phone] Adolfo Carreno MD [address] [place] [address] [phone] 04/05/2024 9:30 EDT Telemedicine [facility] - [facility] Palliative Care Services [address] [place] [address] [phone] Chichi Woods MD [address] [place] [address] [phone] 04/11/2024 15:00 EDT Telemedicine [facility] Hematology & Oncology - [address] [phone] Alisson Carreon MD [address] [place] [address] [phone] 04/13/2024 13:30 EDT Appointment [facility] Hematology & Oncology - [address] [address] 04/13/2024 14:00 EDT Appointment [facility] Hematology & Oncology [address] 100501 04/16/2024 10:00 EST Telemedicine [facility] - [facility] Palliative Care Services [address] [place] [address] [phone] Chichi Woods MD [address] [place] [address], [address] [phone] 04/24/2024 9:00 EST Appointment [facility] Radiology CT Outpatient - [address] [id number] 04/24/2024 11:00 EST Appointment [facility] Breast Imaging - [facility] S [address] 289291 04/27/2024 12:00 EST Appointment [facility] Hematology & Oncology - [address] 616101 05/02/2024 15:00 EST Telemedicine [facility] Hematology & Oncology [address] [phone] Alisson Carreon MD [address] [place] [address], [facility], Level 2 [place] [phone] 05/04/2024 10:15 EST Ancillary Procedure [facility] Cardiology [place] [address] [place] [address] 05/04/2024 11:30 EST Appointment [facility] Hematology & Oncology [address] 847361 05/04/2024 12:00 EST Appointment [facility] Hematology & Oncology - [address] 101141 06/12/2024 13:00 [facility] Radiology CT - [facility] [address] [place] [address] documented as of this encounter Visit Diagnoses Not on filedocumented in this encounter Care Teams Nurse Clinician Relationship Specialty Start Date End Date Linda Blancas MD [facility] [address] [place] [address] PCP - General 01/06/11 Adolfo Carreno MD 111 [facility], [facility], Level 2 [place] [phone] General Surgery 04/26/19 documented as of this encounter
--- OUTSIDE RECORDS SUMMARY | 2024-03-20 14:34 | XMS_ITS | Encounter Summary ---
Author Organization [facility] Address [address] [place] [address] Care Team Providers Care Garage Helper Name Role Phone Lidna Blancas MD Primary Care Provider [phone] Adolfo Carreno MD Unavailable [phone] Reason for Visit * Reason Onset Date Comments Appointment Related 01/27/2024 Encounter Details Date Type Department Care Team (Late st Contact Info) Description 01/27/2024 Telephone [facility] Hematology & Oncology - [facility] [address] [place] [address] Nadeen Blood, PA-C 111 [facility], [address] [place] [address] Appointment Related Social History Tobacco Use Types Packs/Day Years Used Date Smoking Tobacco: Never Passive Smoke Exposure: Never Smokeless Tobacco: Never Alcohol Use Standard Drinks/Week Comments Not Currently 1 (1 standard drink = 0.6 oz pur e alcohol) [facility] Utilities Answer Date Recorded In the past 12 months has [employer] electric, gas, oil, or water company threatened [...] any time in the past 12 m [facility], were you homeless or living in [...] encounter Miscellaneous Notes * Telephone Encounter - Bella Hinton - 01/27/2024 1347 EDT Spoke to pt about 02/02 infusion stating it was not cx'd on our end and should be left as is. Pt said pulmonary/infectious disease advised pt finish medication they are currently on and defer infusionuntil 02/27. Scheduling let pt know they would inform primary nurse and would call with any other questions. * Telephone Encounter - Fady Nobles - 01/27/2024 1142 EDT HemOnc Incoming Call Appointment Related Which type of appointment is this for? Infusion Visit Is this a return call from a record center specialist?No Cancel Appointment Appointment Date02/03/24 (if within 1 week, [employer]. If no answer, put high priority call encounter and route to hem/onc scheduling pool) Patient states infusion on 02/02 should be cancelled; states it was rescheduled to 02/28/24. Patient would also like port access/flush scheduled on 02/28/24 Fady Nobles 01/27/2024 11:42 documented in this encounter Plan of Treatment Upcoming Encounters Date Type Department Care Team (Late st Contact Info) Description 04/02/2024 10:30 EDT Appointment [facility] Interventional Radiology Unit [address] [place], [place] 850451 04/02/2024 15:15 EDT Office Visit [facility] Surgical Oncology - [facility] [address] [place], [place] [phone] Adolfo Carreno MD 111 [facility], [address] [place] [phone] 04/05/2024 9:30 EDT Telemedicine [facility] - [facility] Palliative Care Services [address] [place], [place] 110891 Chichi Woods MD [address] [place] [address] [address] [place] [phone] 04/11/2024 15:00 EDT Telemedicine [facility] Hematology & Oncology [address] 264001 Alisson Carreon MD [address] [place] [address], [address] [place] [phone] 04/13/2024 13:30 EDT Appointment [facility] Hematology & Oncology [address] 015141 04/13/2024 14:00 EDT Appointment [facility] Hematology & Oncology [address] [phone] 04/16/2024 10:00 EST Telemedicine [facility] - [facility] Palliative Care Services [address] [place] [address] [phone] Chichi Woods MD [address] [place] [address] [phone] 04/24/2024 9:00 EST Appointment [facility] Radiology CT Outpatient - [address] [id number] 04/24/2024 11:00 EST Appointment [facility] Breast Imaging - [facility] S [address] 678331 04/27/2024 12:00 EST Appointment [facility] Hematology & Oncology - [address] 645431 05/02/2024 15:00 EST Telemedicine [facility] Hematology & Oncology - [address] 884261 Alisson Carreon MD 111 [facility] 2 [place] [phone] 05/04/2024 10:15 EST Ancillary Procedure [facility] Cardiology - [address] [place] [address] 05/04/2024 11:30 EST Appointment [facility] Hematology & Oncology - [address] 822741 05/04/2024 12:00 EST Appointment [facility] Hematology & Oncology [address] [phone] 06/12/2024 13:00 EST Appointment [facility] Radiology CT - [address] 013591 documented as of this encounter Visit Diagnoses Not on filedocumented in this encounter Care Teams Garage Helper Relationship Specialty Start Date End Date Linda Blancas MD [facility] [address] [place] [address] PCP - General 01/06/11 Adolfo Carreno MD [address] [place] [address], [facility] 2 [place] [phone] General Surgery 04/26/19 documented as of this encounter
--- OUTSIDE RECORDS SUMMARY | 2024-03-20 14:34 | XMS_ITS | Encounter Summary ---
Author Organization [facility] Address [address] [place] [address] Care Team Providers Care Casino Cage Cashier Name Role Phone Linda Blancas MD Primary Care Provider [phone] Adolfo Carreno MD Unavailable [phone] Reason for Visit * Reason Onset Date Comments Other 01/20/2024 Encounter Details Date Type Department Care Team (Late st Contact Info) Description 01/20/[address] [facility] Gastroenterology - [facility] [address] [place] [address] Hugo Vergara MD PhD [address] [place] [address], [address] 5 [place] [address] Other Social History Tobacco Use Types Packs/Day Years Used Date Smoking Tobacco: Never Passive Smoke Exposure: Never Smokeless Tobacco: Never Alcohol Use Standard Drinks/Week Comments Not Currently 1 (1 standard drink = 0.6 oz pur e alcohol) [facility] Utilities Answer Date Recorded In the past 12 months has [employer], gas, oil, or water company threatened [...] any time in the past 12 m [facility], were you homeless or living in a nursing home (including now)? No 01/10/2024 Interpersonal Safety [...] Miscellaneous Notes * Telephone Encounter - Yovana Bowman, RN - 01/23/2024 1535 EDT Attempted to obtain an update from the patient but unfortunately the patient's cell phone was dropping the line. Tried several times. Explained to the patient's that it may be easier if I send a mychart message since we are having trouble with the phone lines. * Telephone Encounter - Melany Mahmood - 01/20/2024 1624 EDT Patient calling with questions about paracentesis frequency, pros and cons. She and her would like to meet with Dr. Irizarry. documented in this encounter Plan of Treatment Upcoming Encounters Date Type Department Care Team (Late st Contact Info) Description 04/02/2024 10:[address] [facility] Interventional Radiology Unit [address] [place] [address] [phone] 04/02/2024 15:[address] [facility] Surgical Oncology - [address] [phone] Adolfo Carreno MD 111 [place], [facility] 2 [place] [phone] 04/05/2024 9:30 EDT [facility] [address] [place], [place] 678431 Chichi Woods MD [address] [place] [address], [address] [phone] 04/11/2024 15:00 EDT Telemedicine [facility] Hematology & Oncology - [address] [phone] Alisson Carreon MD [address] [place] [address], Level 2 [place] [phone] 04/13/2024 13:30 EDT Appointment [facility] Hematology & Oncology - [address] [phone] 04/13/2024 14:00 EDT Appointment [facility] Hematology & Oncology - [address] 861951 04/16/2024 10:00 EST Telemedicine [facility] - [facility] Palliative Care Services [address] [place] [address] [phone] Chichi Woods MD [address] [place] [address], [address] [phone] 04/24/2024 9:00 EST Appointment [facility] Radiology CT Outpatient - [address] 417301 04/24/2024 11:[address] [facility] Breast Imaging - [facility] S [address] 216751 04/27/2024 12:00 EST Appointment [facility] Hematology & Oncology - [address] [phone] 05/02/2024 15:00 EST Telemedicine [facility] Hematology & Oncology - [address] 077331 Alisson Carreon MD [address] [place] [address], Level [address] [place] [phone] 05/04/2024 10:[address] [facility] Cardiology - [address] [place], [place] [phone] 05/04/2024 11:30 EST Appointment [facility] Hematology & Oncology - [address] [address] 05/04/2024 12:00 EST Appointment [facility] Hematology & Oncology [address] [address] 06/12/2024 13:00 EST Appointment [facility] Radiology CT - [address] [address] documented as of this encounter Visit Diagnoses Not on filedocumented in this encounter Care Teams Casino Cage Cashier Relationship Specialty Start Date End Date Linda Blancas MD [facility] [address] [place] [address] PCP - General 01/06/11 Adolfo Carreno MD [address] [place] [address], [facility], Level 2 [place] [address] General Surgery 04/26/19 documented as of this encounter
--- OUTSIDE RECORDS SUMMARY | 2024-03-20 14:34 | XMS_ITS | Encounter Summary ---
Author Organization [facility] Address [address] [place] [address] Care Team Providers Care Horse Groomer Name Role Phone Linda Blancas MD Primary Care Provider [phone] Adolfo Carreno MD Unavailable Reason for Visit * Reason Onset Date Comments Appointment Related 01/20/2024 Encounter Details Date Type Department Care Team (Late st Contact Info) Description 01/20/2024 Telephone [facility] Center Hematology & Oncology - [facility] [address] [place], [place] [phone] Alisson Carreon MD [address] [facility], Level 2 [place] [address] Appointment Related Social History Tobacco Use Types Packs/Day Years Used Date Smoking Tobacco: Never Passive Smoke Exposure: Never Smokeless Tobacco: Never Alcohol Use Standard Drinks/Week Comments Not Currently 1 (1 standard drink = 0.6 oz pur e alcohol) [facility] Utilities Answer Date Recorded In the past 12 months has [employer] electric, gas, oil, or water company threatened [...] any time in the past 12 m [facility], were you homeless or living in [...] encounter Miscellaneous Notes * Telephone Encounter - Pippa Black - 01/23/2024 1617 EDT Patient calling again about upcoming appointments. Please see below. * Telephone Encounter - Kemal Misa - 01/20/2024 1637 EDT Reason for Call: Appointment Related Summary/Symptoms: patient would like to know why she is scheduled for her infusion 3 days after [place] flush Please call back to discuss the appointments on 01/30 and 02/02 Misa Sommer 01/20/2024 16:37 documented in this encounter Plan of Treatment Upcoming Encounters Date Type Department Care Team (Late st Contact Info) Description 04/02/2024 10:30 EDT Appointment [facility] Interventional Radiology Unit [address] [place] [address] [phone] 04/02/2024 15:15 EDT Office Visit [facility] Surgical Oncology - [address] [phone] Adolfo Carreno MD [address] [place] [phone] 04/05/2024 9:30 EDT Telemedicine [facility] - [facility] Palliative Care Services [address] [place] [address] 681611 Chichi Woods MD [address] [place] [address], [address] [phone] 04/11/2024 15:00 EDT Telemedicine [facility] Hematology & Oncology - [address] 071431 Alisson Carreon MD [address] [place] [phone] 04/13/2024 13:30 EDT Appointment [facility] Hematology & Oncology [address] 707841 04/13/2024 14:00 EDT Appointment [facility] Hematology & Oncology [address] 257371 04/16/2024 10:00 EST Telemedicine [facility] - [facility] Palliative Care Services [address] [place] [address] 713121 Chichi Woods MD [address] [place] [address], [address] [phone] 04/24/2024 9:00 EST Appointment [facility] Radiology CT Outpatient - [address] 467461 04/24/2024 11:00 EST Appointment [facility] Breast Imaging - [facility] S [address] [place], [place] 674121 04/27/2024 12:00 EST Appointment [facility] Hematology & Oncology [address] [id number] 05/02/2024 15:00 EST Telemedicine [facility] Hematology & Oncology - [address] 671771 Alisson Carreon MD [address] [place] [address], Level 2 [place] [phone] 05/04/2024 10:15 EST Ancillary Procedure [facility] Cardiology [place] [address] 05/04/2024 11:30 EST Appointment [facility] Hematology & Oncology [address] 118372 [phone] 05/04/2024 12:00 EST Appointment [facility] Center Hematology & Oncology - [facility] [address] [place] [address] 06/12/2024 13:00 EST [facility]ment [facility] Rad[facility] - [facility] [address] [place] [address] documented as of this encounter Visit Diagnoses Not on filedocumented in this encounter Care Teams Horse Groomer Relationship Specialty Start Date End Date Linda Blancas MD [facility] [address] [place] [address] PCP - General 01/06/11 Adolfo Carreno MD [address] [place] [address], [facility], Level [address] [place] [address] General Surgery 04/26/19 documented as of this encounter
--- OUTSIDE RECORDS SUMMARY | 2024-03-20 14:34 | XMS_ITS | Encounter Summary ---
Author Organization [facility] Address [address] [place] [address] Care Team Providers Care Associate Quality Engineer Name Role Phone Linda Blancas MD Primary Care Provider [phone] Adolfo Carreno MD Unavailable Reason for Visit * Reason Comments Medications Refill Encounter Details Date Type Department Care Team (Late st Contact Info) Description 01/26/2024 Refill [facility] Gastroenterology - [address] [address] Hugo Vergara MD PhD [address] [place] [address], [address] [place] [address] Medications Refill Social History Tobacco Use Types Packs/Day Years Used Date Smoking Tobacco: Never Passive Smoke Exposure: Never Smokeless Tobacco: Never Alcohol Use Standard Drinks/Week Comments Not Currently 1 (1 standard drink = 0.6 oz pur e alcohol) [facility] Utilities Answer Date Recorded In the past 12 months has [employer], gas, oil, or water company threatened [...] any time in the past 12 m [facility], were you homeless or living [...] Dispensed Refills Start Date End Da te furosemide (LASIX) 20 mg tablet Take 2 Tablets by mouth daily. 60 Tablet 1 01/26/2024 documented in this encounter Miscellaneous Notes * Telephone Encounter - Yovana Bowman RN - 01/26/[address] Vergara, furosemide recently increased to 40 mg per day ( see mychart 01/25/24). Refill wassent to preferred pharmacy. documented in this encounter Plan of Treatment Upcoming Encounters Date Type Department Care Team (Late st Contact Info) Description 04/02/2024 10:30 EDT Appointment [facility] Interventional Radiology Unit [address] [place] [address] [phone] 04/02/2024 15:15 EDT Office Visit [facility] Surgical Oncology - [address] [phone] Adolfo Carreno MD [address] [place] [address] 2 [place] [phone] 04/05/2024 9:30 EDT Telemedicine [facility] - [facility] Palliative Care Services [address] [place], [place] [phone] Chichi Woods MD [address] [place] [phone] 04/11/2024 15:00 EDT Telemedicine [facility] Hematology & Oncology - [address] [phone] Alisson Carreon MD [address] [place] [address] 2 [place] [phone] 04/13/2024 13:30 EDT Appointment [facility] Hematology & Oncology - [address] [id number] 04/13/2024 14:00 EDT Appointment [facility] Hematology & Oncology [address] 905291 04/16/2024 10:00 EST Telemedicine [facility] - [facility] Palliative Care Services [address] [place] [address] 013781 Chichi Woods MD [address] [place] [address], [address] [phone] 04/24/2024 9:00 EST Appointment [facility] Radiology CT Outpatient - [address] 787401 04/24/2024 11:00 EST Appointment [facility] Breast Imaging - [facility] S [place] 1 [place], [place] [phone] 04/27/2024 12:00 EST Appointment [facility] Hematology & Oncology - [address] 199771 05/02/2024 15:00 EST Telemedicine [facility] Hematology & Oncology [address] 089861 Alisson Carreon MD [address] [place] [address], [facility], Level [address] [place] [phone] 05/04/2024 10:15 EST Ancillary Procedure [facility] Cardiology [place] [address] 05/04/2024 11:30 EST Appointment [facility] Hematology & Oncology [address] 459261 05/04/2024 12:00 EST Appointment [facility] Hematology & Oncology - [address] 277141 06/12/2024 13:00 [facility] Radiology CT - [facility] [address] [place], [place] 089741 documented as of this encounter Visit Diagnoses Not on filedocumented in this encounter Discontinued Medications Medication Sig Discontinue Reason Start Date End Da te furosemide (LASIX) 20 mg tablet Take 1 Tablet by mouth daily. 11/30/2023 01/26/2024 documented as of this encounter Care Teams Associate Quality Engineer Relationship Specialty Start Date End Date Linda Blancas MD [facility] [address] [place] [address] PCP - General 01/06/11 Adolfo Carreno MD 111 [facility], [facility], [address] [place] [address] General Surgery 04/26/19 documented as of this encounter
--- OUTSIDE RECORDS SUMMARY | 2024-03-20 14:34 | XMS_ITS | Encounter Summary ---
Author Organization [facility] Address [address] [place] [address] Care Team Providers Care Answering Service Agent Name Role Phone Linda Blancas MD Primary Care Provider [phone] Adolfo Carreno MD Unavailable Reason for Referral * Radiology Services (Routine/Next Available) - Authorization Not Required Specialty Diagnoses / Procedures Referred By Contac t Referred To Contact Diagnoses Diffuse alveolar damage (HCC-CMS) Procedures CT CHEST WO CONTRAST Pavan Bianchi MD [address] [phone] [facility] Referral ID Status Reason Start Date Expiration Date Visits Requested Visits Authorized [id number] Authorization Not Required 01/31/2024 1 1 * Test (Routine/Next Available) - Authorization Not Required Specialty Diagnoses / Procedures Referred By Contac t Referred To Contact Diagnoses Diffuse alveolar damage (HCC-CMS) Procedures PULMONARY FUNCTION TESTING Pavan Bianchi MD [address] [phone] Referral ID Status Reason Start Date Expiration Date Visits Requested Visits Authorized [id number] Authorization Not Required 01/25/2024 1 1 * Radiology Services (Routine/Next Available) - Authorization Not Required Specialty Diagnoses / Procedures Referred By Doug hearn Referred To Contact Diagnoses Diffuse alveolar damage (HCC-CMS) Procedures CT CHEST WO CONTRAST Pavan Bianchi MD [address] [place] [phone] [facility] Referral ID Status Reason Start Date Expiration Date Visits Requested Visits Authorized [id number] Authorization Not Required 01/25/2024 1 1 * PT/OT/ST (Routine/Next Available) - New Request Specialty Diagnoses / Procedures Referred By Doug hearn Referred To Contact Diagnoses Diffuse alveolar damage (HCC-CMS) Pavan Bianchi MD [address] [place] [phone] Referral ID Status Reason Start Date Expiration Date Visits Requested Visits Authorized [id number] New Request Specialty Services Required 01/25/2024 1 1 Question Answer Scheduling Comments (optional ? describe specific scheduling needs if applicable): Pt requests [facility] PT for deconditioning Reason for Request: Deconditioning following acute illness Reason for Visit * Reason Comments Follow-up Encounter Details Date Type Department Care Team (Late st Contact Info) Description 01/25/2024 15:30 EDT Office Visit [facility] [place] [address] Ana Quintanilla MD [address] [place] [address] Diffuse alveolar damage (HCC-CMS) (Primary Dx) Social History Tobacco Use Types Packs/Day Years Used Date Smoking Tobacco: Never Passive Smoke Exposure: Never Smokeless Tobacco: Never Alcohol Use Standard Drinks/Week Comments Not Currently 1 (1 standard drink = 0.6 oz pur e alcohol) [facility] Utilities Answer Date Recorded In the past 12 months has e [employer], gas, oil, or water [employer] threatened to shut off services in your [...] Sign Reading Time Taken Comments Blood Pressure 132/68 01/25/2024 1519 EDT Pulse 106 01/25/2024 1519 EDT Temperature 37.3 ??C (99.1 ??F) 01/25/2024 1519 EDT Respiratory Rate 16 01/25/2024 1519 EDT Oxygen Saturation 100% 01/25/2024 1519 EDT Inhaled Oxygen Concentration - - Weight 54.4 kg (120 lb) 01/25/2024 1519 EDT Height 154.9 cm (5' 0.98) 01/25/2024 1519 EDT Body Mass Index 22.69 01/25/2024 1519 EDT documented in this encounter Functional Status [...] onset 12/12/2023 documented as of this encounter Patient Instructions * Patient Instructions* Ana Quintanilla MD - 01/25/2024 15:30 EDT Recommend holding off on resuming chemotherapy until done with treatment for PJP. We will inform your ID and oncology teams regarding this recommendation. Please schedule your CT chest and PFT's to be done upon completion of your PJP treatment, but before resuming chemotherapy. PT referral provided for deconditioning. documented in this encounter Progress Notes * Ana Quintanilla MD - 01/25/2024 1530 EDT Department of Pulmonary & Critical Care Medicine Pulmonary Clinic Follow Up Visit PCP: Linda Blancas Requesting Provider: No ref. provider found. Date of Visit: 01/25/24 Chief Complaint: Clearance to start chemotherapy Sunshine Pleitez is a 63 y.o. female with a PMHx significant for metastatic ER+ breast cancer(mets to liver c/b portal HTN, lymphadenopathy, bony mets), PE on Eliquis, and recent admission (01/08/24 - 01/19/24) for acute hypoxemic respiratory failure secondary to PJP vs. Trastuzumab pneumonitis. Ms. Pleitez had a recent admission to [facility] 01/08/24 for worsening hypoxic respiratory failure. She was initially thought to have trastuzumab induced pneumonitis. She was started on prednisone. She underwent Bronchoscopy with BAL showing insignificant bx results but PJP on culture. All other BALtesting was negative. After the diagnosis of PJP was confirmed, she was started on atovaquone. Hospital course was complicated by recurrent ascites requiring 3 x paracentesis. She was ultimately discharged from the hospital on 01/19/24 with 8L oximyzer on atovaquone and prednisone for PJP treatment. Since being discharged from the hospital, Mrs. Pleitez has noticed a very gradual, and still incomplete, improvement in her respiratory status. She continues to use between 2.5 and 5L nasal cannula at home (only with ambulation/movement). She does mention that she has fallen 3 times since her di scharge in the setting of feeling suddenly light headed/dyspneic when leaning forward. She was seenin urgent care the other day for MSK [...] She is able to ambulate around stores on 2.5 liters without getting shrot of breath. She endorses feeling generally very weak and hopes to regain her strength as she recovers from this infection. History of Present Illness: Sunshine Pleitez is a 63 y.o. female with a PMHx significant for metastatic ER+ breast cancer(mets to liver c/b portal HTN, lymphadenopathy, bony mets), PE on Eliquis, and recent admission (01/08/24 - 01/19/24) for acute hypoxemic respiratory failure secondary to PJP vs. Trastuzumab pneumonitis. She presents today as a follow up visit with a request for pulmonary clearance to resume her Trastuzumab after having PJP. She says that her oncologist hopes to resume it once receiving ID and pulmonary approval. ROS: A complete 14 point ROS was conducted with pertinent findings including: Pulmonary History Vaccination History There is no immunization history for the selected administration types on file for this patient. There is no immunization history for the selected administration types on file for this patient. Immunization History Administered Date(s) Administered Covid-19 mRNA Vaccine (Loom Decor COVID-19) PF 0.3 ml IM (12 yrs+) 08/27/2020, 09/17/2020, 02/27/2021 General History PMH PSH has a past medical history of Acquired spondylolisthesis, Activity, other involving cardiorespiratory exercise, Allergy, Arthritis, Back pain, Breast cancer ([facility]) (11/2003), Breast cancer, right ([facility]), Depression, Environmental allergies, Exercise involving walking, GERD (gastroesophageal re flux disease), H/O spinal fusion, Herpes simplex virus (HSV) infection, History of general anesthesia, Immunosuppressed status ([facility]) (12.11.21), Liver disease (10.12.23), Lumbar radicular syndrome, Nausea & vomiting, Numbness, Pulmonary embolism ([facility]) (11.11.23), Reactive airway disease(09.12.23), Shortness of breath (09.12.23), Swelling (11.11.23), and Wears glasses. Past Surgical History: Procedure Laterality Date BACK SURGERY 12/2011 L3 - S1 spinal decompression and fusion - pt has hardware in place-[place] no complications BREAST RECONSTRUCTION 01/30/2004 subpectoral implant - [place] no complications BREAST RECONSTRUCTION 05/2018 right - [place] no complications BREAST SURGERY 01/30/2004 Right mastectomy - [place] no complications BREAST SURGERY 08/2018 die try out worker stamping placed right breast - [place] no complications CARPAL TUNNEL RELEASE 200705/07/2019 beir block - no complications EYE SURGERY Partially detached retina FOOT SURGERY 05/2021 right big toe fused, right little toe screw FRACTURE SURGERY Morrell fractures in both feet,right big toe fusion LIPOMA RESECTION 200005/07/2019 [place] no complications CA INSJ/RPLCMT BREAST IMPLANT FEB DAY MASTECTOMY Bilateral 05/30/2019 Exchange right tissue die try out worker stamping to silicone implant, exchange of left implant for matching performedby Tylor Boss MD at [facility] [place] has a past surgical history that includes Carpal tunnel release (2007); lipoma resection (2000); Breast surgery (01/30/2004); Breast reconstruction (01/30/2004); Breast surgery (08/2018); Breast reconstruction (05/2018); pr insj/rplcmt breast implant feb day mastectomy (Bilateral, 05/30/2019); back surgery (12/2011); Foot surgery (05/2021); eye surgery (); and fracture surgery. Social History Family history Social History Socioeconomic History Marital status: Spouse name: Not on file Number of children: Not on file Years of education: Not on file Highest education level: Not on file Occupational History Not on file Tobacco Use Smoking status: Never Passive exposure: Never Smokeless tobacco: Never Vaping Use Vaping status: Never Used Substance and Sexual Activity Alcohol use: Not Currently Alcohol/week: 1.0 standard drink of alcohol Types: 1 Glasses of wine per week Drug use: No Sexual activity: Not Currently Partners: Male Other Topics Concern Not on file Social History Narrative Not on file Social Determinants of Health Financial Strain: Not on file Food Insecurity: No Food Insecurity (01/08/2024) Hunger Vital Sign Worried About Running Out of Food in the Last Year: Never true Ran Out of Food in the Last Year: Never true Transportation Needs: No Transportation Needs (01/10/2024) PRAPARE - Transportation Lack of Transportation (Medical): No Lack of Transportation (Non-Medical): No Physical Activity: Not on file Housing Stability: Low Risk (01/10/2024) Housing Stability Vital Sign Unable to Pay for Housing in the Last Year: No Number of Times Moved in the Last Year: 0 Homeless in the Last Year: No Lives: at home with Family History Problem Relation Age of Onset Cancer Father Lung cancer Heart Disease Father Stroke Mother Mental Illness Mother Bipolar *Other(comment) Sister SA valve failure Cancer Brother 59 esophageal Stroke Brother Blot clot in his sleep Liver Disease Brother Cancer Maternal Uncle bladder Breast Cancer Paternal Aunt 35 Cancer Paternal Aunt 35 breast Cancer Paternal Aunt Breast cancer Medications Current Outpatient Medications Medication Instructions apixaban (ELIQUIS) 5 mg, oral, 2 TIMES DAILY atovaquone (MEPRON) 1,500 mg, oral, EVERY 24 HOURS calcium-vitamin D (OS-CHAR D) 500 mg(1,250mg) -200 unit per tablet 1 Tablet, oral, 2 TIMES DAILY WITH BREAKFAST & DINNER, cholecalciferol (Vitamin D3) 1,000 Units, oral, DAILY cyclobenzaprine (FLEXERIL) 10 mg, oral, 2 TIMES DAILY PRN dexAMETHasone (DECADRON) 8 mg, oral, DAILY, Take on days 2 and 3 after chemotherapy. furosemide (LASIX) 20 mg, oral, DAILY gabapentin (NEURONTIN) 200 mg, oral, 3 TIMES DAILY HYDROmorphone (DILAUDID) 2 mg, oral, AT BEDTIME PRN ipratropium-albuteroL (DUONEB) 0.5 mg-3 mg(2.5 mg base)/3 mL nebulizer solution 3 mL, nebulization,EVERY 6 HOURS PRN MULTIVITS W-CA,FE,OTHER MIN (WOMEN'S DAILY FORMULA ORAL) oral, DAILY naloxone (NARCAN) 4 mg/actuation nasal spray 1 [place], nasal, PRN omeprazole (PRILOSEC) 40 mg, oral, 2 TIMES DAILY predniSONE (DELTASONE) 20 mg tablet Take 2 Tablets by mouth daily for 2 days, THEN 1 Tablet daily for 10 days. prochlorperazine (COMPAZINE) 10 mg, oral, EVERY 6 HOURS PRN RED YEAST RICE EXTRACT ORAL 1,200 mg, oral, DAILY, 600mg 2x a day senna (SENOKOT) 8.6 mg tablet 2 Tablets, oral, DAILY spironolactone (ALDACTONE) 100 mg, oral, DAILY valACYclovir (VALTREX) 500 mg, oral, DAILY venlafaxine (EFFEXOR-XR) 75 mg, oral, DAILY Allergies Allergies Allergen Reactions Amoxicillin Other (See Comments) and Rash Red rash Sulfa (Sulfonamide Antibiotics) Hives Light lavender rash Sulfamethoxazole-Trimethoprim Rash Objective There were no vitals taken for this visit. There is no height or weight on file to calculate BMI. Physical Exam: Gen: Chronically ill woman in no acute distress. HENT: Sclerae anicteric, no oral exudates; no nasal lesions noted Lymph: No submandibular, cervical, or supraclavicular lymphadenopathy CV: RRR, S1/S2, no murmurs Lungs: Symmetric chest expansion. Clear to auscultation bilaterally. No rales, rhonchi, or wheezing Abd: Soft, non-distended, bowel sounds present Ext: No pedal edema; no noted clubbing or cyanosis. Skin: Warm and dry; Scattered ecchymoses Neuro: A & O x 3, ambulates independently Psych: appropriate, cooperative and pleasant Imaging: XR CHEST 2 VIEWS Result Date: 01/16/2024 1. No acute abnormality. 2. Improving bilateral linear atelectasis. 3. Right chest port and catheter. I have personally reviewed the images and the above interpretation and agree with the findings. [id number] IR PARACENTESIS-RADIOLOGY Result Date: 01/10/2024 1. Successful ultrasound guided paracentesis. [id number] XR CHEST PORTABLE 1 VIEW Result Date: 01/08/2024 Interposed areas of atelectasis and airspace disease similar as on the comparison CT 3 days prior concerning for bilateral pneumonia. Differential consideration would include drug reaction. [id number] CT CHEST W CONTRAST Result Date: 01/05/2024 1. Diminished lung volumes with evidence of atelectasis and/or scarring in the lungs bilaterally. 2. Patchy areas of groundglass type opacity within the lungs bilaterally have developed since the prior exam. Though possibly related to volume loss the appearance is concerning for infection. 3. Metastatic disease to the liver and spleen with a large amount of ascites. [id number] IR PARACENTESIS-RADIOLOGY Result Date: 01/03/2024 Successful, uncomplicated paracentesis using sonographic guidance yielding 3 L of fluid. LUNA Arguelles, PANitaC Interventional Radiology I have personally reviewed the images and the above interpretation and agree with the findings. [id number] Cardiac Imaging: Echocardiogram: Transthoracic Echocardiogram: Results have been documented within the past 5 years for the following orders TRANSTHORACIC ECHO (TTE) COMPLETE Interpretation Summary IVC/SVC: The inferior vena cava was normal in size. Left Ventricle: The left ventricular cavity was normal in size. Left ventricular systolic function was hyperdynamic with an ejection fraction =>65%. Left ventricular wall thickness was normal. Left ventricular wall motion was normal; there were no regional wall motion abnormalities. Right Ventricle: The right ventricular cavity was normal in size. Right ventricular systolic function was hyperdynamic. Normal tricuspid annular plane systolic excursion (TAPSE) >1.7 cm. Normal RVS' >9.5cm/s. Mitral Valve: There was mild mitral regurgitation. . Pertinent labs: ( Lab Results Component Value Date TRIGLYEXT 164 01/24/2017 CHOLEXT 208 01/24/2017 HDLEXT 54 01/24/2017 LDLEXT 121 01/24/2017 CLEXT 112 (A) 09/26/2023 CO2EXT 24 09/26/2023 KEXT 3.3 (A) 09/26/2023 SODIUMEXT 145 09/26/2023 BUNEXT 17 09/26/2023 CREATININEEX 0.7 09/26/2023 CALCGFREXT >60 09/26/2023 ASTEXT 71 (A) 09/26/2023 ALTEXT 44 09/26/2023 CALCIUMEXT 9 09/26/2023 ALBUMINEXT 2.9 (A) 09/26/2023 INR 1.2 (H) 12/12/2023 TSHEXT 2.390 01/24/2017 Pertinent Micro: 01/11/24 PJP PCR (BELKIS BAL): Positive Lab Results Component Value Date COVID-19 rt-PCR Result Negative 01/16/2024 Pulmonary Function Testing: Pulmonary Function Testing Results: Item: Date: 11/23/23 FEV1/FVC 78.58 67.97 -0.26 FVC (L) 2.35 1.86 -0.52 FEV1 (L) 1.84 1.47 -0.63 DLCO N/A N/A N/A SPIROMETRY: Normal airflow and vital capacity. No significant improvement in airflow following bronchodilator. Assessment and Plan Sunshine Pleitez is a 63 y.o. female with a PMHx significant for metastatic ER+ breast cancer(mets to liver c/b portal HTN, lymphadenopathy, bony mets), PE on Eliquis, and recent admission (01/08/24 - 01/19/24) for acute hypoxemic respiratory failure secondary to PJP vs. Trastuzumab pneumonitis. She presents today as a follow up visit with a request for pulmonary clearance to resume her Trastuzumab after having PJP. She says that her oncologist hopes to resume it once receiving ID and pulmonary approval. Labs and imaging were personally reviewed. Impression: Acute hypoxic respiratory failure PJP pneumonia, confirmed by BAL PCR Cannot rule out a component of Trastuzumab-related pneumonitis Recommendations: - Overall respiratory status is slowly improving compared to how significantly she was impaired during her recent hospitalization. Mrs. Pleitez remains on both prednisone and Atovaquone for her PJP pneumonia, which was confirmed by BAL PCR. She has come to the pulmonary office requesting clearance to resume Trastuzumab, which was initially thought to be the etiology of her acute lung injury until her PJP test returned positive. She should have about a week and a half left of her treatment course. - Given that we cannot say with complete certainty that Trastuzumab did not contribute to her acutelung injury, the risks and benefits of resuming it should be considered. We would recommend that she complete her entire treatment course for PJP treatment prior to restarting Trastuzumab given that it either may have contributed to this initial insult, or could have the potential to induce lung injury down the road. - Upon completion of her treatment course, we will obtain PFT's (including DLCO) and a CT chest WO to obtain new baselines prior to reinitiating treatment. - Respiratory status should be monitored closely upon restarting any chemotherapy agents. Discussedwith both And Mrs. Pleitez during today's visit. - In addition, she would benefit from strength training for her overall deconditioning, for which aPT referral has been provided today. Note to be forwarded to other specialties taking part in Mrs. Pleitez's treatment team. Please reach out with any questions. Patient was seen and examined with attending: Dr. Bianchi. Ana Quintanilla MD PGY-4 Pulmonary & Critical Care Fellow Attestation statement: I performed or was present during the knight or critical portions of the visit and participated in the management of the patient. I agree with the findings and plan of care documented in the resident's/fellow's note. Pavan Bianchi MD * Ana Quintanilla MD - 01/25/2024 1530 EDT Pulmonary Clinic Follow Up Visit PCP: Linda Blancas Requesting Provider: No ref. provider found. Date of Visit: 01/25/24 Chief Complaint: Clearance to start chemotherapy Sunshine Pleitez is a 63 y.o. female with a PMHx significant for metastatic ER+ breast cancer(mets to liver c/b portal HTN, lymphadenopathy, bony mets), PE on Eliquis, and recent admission (01/08/24 - 01/19/24) for acute hypoxemic respiratory failure secondary to PJP vs. Trastuzumab pneumonitis. Ms. Pleitez had a recent admission to [facility] 01/08/24 for worsening hypoxic respiratory failure. She was initially thought to have trastuzumab induced pneumonitis. She was started on prednisone. She underwent Bronchoscopy with BAL showing insignificant bx results but PJP on culture. All other BALtesting was negative. After the diagnosis of PJP was confirmed, she was started on atovaquone. Hospital course was complicated by recurrent ascites requiring 3 x paracentesis. She was ultimately discharged from the hospital on 01/19/24 with 8L oximyzer on atovaquone and prednisone for PJP treatment. Since being discharged from the hospital, Mrs. Pleitez has noticed a very gradual, and still incomplete, improvement in her respiratory status. She continues to use between 2.5 and 5L nasal cannula at home (only with ambulation/movement). She does mention that she has fallen 3 times since her di scharge in the setting of feeling suddenly light headed/dyspneic when leaning forward. She was seenin urgent care the other day for MSK [...] She is able to ambulate around stores on 2.5 liters without getting shrot of breath. She endorses feeling generally very weak and hopes to regain her strength as she recovers from this infection. History of Present Illness: Sunshine Pleitez is a 63 y.o. female with a PMHx significant for metastatic ER+ breast cancer(mets to liver c/b portal HTN, lymphadenopathy, bony mets), PE on Eliquis, and recent admission (01/08/24 - 01/19/24) for acute hypoxemic respiratory failure secondary to PJP vs. Trastuzumab pneumonitis. She presents today as a follow up visit with a request for pulmonary clearance to resume her Trastuzumab after having PJP. She says that her oncologist hopes to resume it once receiving ID and pulmonary approval. ROS: A complete 14 point ROS was conducted with pertinent findings including: Pulmonary History Vaccination History There is no immunization history for the selected administration types on file for this patient. There is no immunization history for the selected administration types on file for this patient. Immunization History Administered Date(s) Administered Covid-19 mRNA Vaccine (Loom Decor COVID-19) PF 0.3 ml IM (12 yrs+) 08/27/2020, 09/17/2020, 02/27/2021 General History PMH PSH has a past medical history of Acquired spondylolisthesis, Activity, other involving cardiorespiratory exercise, Allergy, Arthritis, Back pain, Breast cancer ([facility]) (11/2003), Breast cancer, right ([facility]), Depression, Environmental allergies, Exercise involving walking, GERD (gastroesophageal re flux disease), H/O spinal fusion, Herpes simplex virus (HSV) infection, History of general anesthesia, Immunosuppressed status ([facility]) (12.11.21), Liver disease (10.12.23), Lumbar radicular syndrome, Nausea & vomiting, Numbness, Pulmonary embolism ([facility]) (11.11.23), Reactive airway disease(09.12.23), Shortness of breath (09.12.23), Swelling (11.11.23), and Wears glasses. Past Surgical History: Procedure Laterality Date BACK SURGERY 12/2011 L3 - S1 spinal decompression and fusion - pt has hardware in place-[place] no complications BREAST RECONSTRUCTION 01/30/2004 subpectoral implant - [place] no complications BREAST RECONSTRUCTION 05/2018 right - [place] no complications BREAST SURGERY 01/30/2004 Right mastectomy - [place] no complications BREAST SURGERY 08/2018 die try out worker stamping placed right breast - [place] no complications CARPAL TUNNEL RELEASE 200705/07/2019 beir block - no complications EYE SURGERY Partially detached retina FOOT SURGERY 05/2021 right big toe fused, right little toe screw FRACTURE SURGERY Morrell fractures in both feet,right big toe fusion LIPOMA RESECTION 200005/07/2019 [place] no complications CA INSJ/RPLCMT BREAST IMPLANT Feb MASTECTOMY Bilateral 05/30/2019 Exchange right tissue die try out worker stamping to silicone implant, exchange of left implant for matching performedby Tylor Boss MD at [facility] [place] has a past surgical history that includes Carpal tunnel release (2007); lipoma resection (2000); Breast surgery (01/30/2004); Breast reconstruction (01/30/2004); Breast surgery (08/2018); Breast reconstruction (05/2018); pr insj/rplcmt breast implant feb mastectomy (Bilateral, 05/30/2019); back surgery (12/2011); Foot surgery (05/2021); eye surgery (); and fracture surgery. Social History Family history Social History Socioeconomic History Marital status: Spouse name: Not on file Number of children: Not on file Years of education: Not on file Highest education level: Not on file Occupational History Not on file Tobacco Use Smoking status: Never Passive exposure: Never Smokeless tobacco: Never Vaping Use Vaping status: Never Used Substance and Sexual Activity Alcohol use: Not Currently Alcohol/week: 1.0 standard drink of alcohol Types: 1 Glasses of wine per week Drug use: No Sexual activity: Not Currently Partners: Male Other Topics Concern Not on file Social History Narrative Not on file Social Determinants of Health Financial Strain: Not on file Food Insecurity: No Food Insecurity (01/08/2024) Hunger Vital Sign Worried About Running Out of Food in the Last Year: Never true Ran Out of Food in the Last Year: Never true Transportation Needs: No Transportation Needs (01/10/2024) PRAPARE - Transportation Lack of Transportation (Medical): No Lack of Transportation (Non-Medical): No Physical Activity: Not on file Housing Stability: Low Risk (01/10/2024) Housing Stability Vital Sign Unable to Pay for Housing in the Last Year: No Number of Times Moved in the Last Year: 0 Homeless in the Last Year: No Lives: at home with Family History Problem Relation Age of Onset Cancer Father Lung cancer Heart Disease Father Stroke Mother Mental Illness Mother Bipolar *Other(comment) Sister SA valve failure Cancer Brother 59 esophageal Stroke Brother Blot clot in his sleep Liver Disease Brother Cancer Maternal Uncle bladder Breast Cancer Paternal Aunt 35 Cancer Paternal Aunt 35 breast Cancer Paternal Aunt Breast cancer Medications Current Outpatient Medications Medication Instructions apixaban (ELIQUIS) 5 mg, oral, 2 TIMES DAILY atovaquone (MEPRON) 1,500 mg, oral, EVERY 24 HOURS calcium-vitamin D (OS-CHAR D) 500 mg(1,250mg) -200 unit per tablet 1 Tablet, oral, 2 TIMES DAILY WITH BREAKFAST & DINNER, cholecalciferol (Vitamin D3) 1,000 Units, oral, DAILY cyclobenzaprine (FLEXERIL) 10 mg, oral, 2 TIMES DAILY PRN dexAMETHasone (DECADRON) 8 mg, oral, DAILY, Take on days 2 and 3 after chemotherapy. furosemide (LASIX) 20 mg, oral, DAILY gabapentin (NEURONTIN) 200 mg, oral, 3 TIMES DAILY HYDROmorphone (DILAUDID) 2 mg, oral, AT BEDTIME PRN ipratropium-albuteroL (DUONEB) 0.5 mg-3 mg(2.5 mg base)/3 mL nebulizer solution 3 mL, nebulization,EVERY 6 HOURS PRN MULTIVITS W-CA,FE,OTHER MIN (WOMEN'S DAILY FORMULA ORAL) oral, DAILY naloxone (NARCAN) 4 mg/actuation nasal spray 1 [place], nasal, PRN omeprazole (PRILOSEC) 40 mg, oral, 2 TIMES DAILY predniSONE (DELTASONE) 20 mg tablet Take 2 Tablets by mouth daily for 2 days, THEN 1 Tablet daily for 10 days. prochlorperazine (COMPAZINE) 10 mg, oral, EVERY 6 HOURS PRN RED YEAST RICE EXTRACT ORAL 1,200 mg, oral, DAILY, 600mg 2x a day senna (SENOKOT) 8.6 mg tablet 2 Tablets, oral, DAILY spironolactone (ALDACTONE) 100 mg, oral, DAILY valACYclovir (VALTREX) 500 mg, oral, DAILY venlafaxine (EFFEXOR-XR) 75 mg, oral, DAILY Allergies Allergies Allergen Reactions Amoxicillin Other (See Comments) and Rash Red rash Sulfa (Sulfonamide Antibiotics) Hives Light lavender rash Sulfamethoxazole-Trimethoprim Rash Objective There were no vitals taken for this visit. There is no height or weight on file to calculate BMI. Physical Exam: Gen: Chronically ill woman in no acute distress. HENT: Sclerae anicteric, no oral exudates; no nasal lesions noted Lymph: No submandibular, cervical, or supraclavicular lymphadenopathy CV: RRR, S1/S2, no murmurs Lungs: Symmetric chest expansion. Clear to auscultation bilaterally. No rales, rhonchi, or wheezing Abd: Soft, non-distended, bowel sounds present Ext: No pedal edema; no noted clubbing or cyanosis. Skin: Warm and dry; Scattered ecchymoses Neuro: A & O x 3, ambulates independently Psych: appropriate, cooperative and pleasant Imaging: XR CHEST 2 VIEWS Result Date: 01/16/2024 1. No acute abnormality. 2. Improving bilateral linear atelectasis. 3. Right chest port and catheter. I have personally reviewed the images and the above interpretation and agree with the findings. [id number] IR PARACENTESIS-RADIOLOGY Result Date: 01/10/2024 1. Successful ultrasound guided paracentesis. [id number] XR CHEST PORTABLE 1 VIEW Result Date: 01/08/2024 Interposed areas of atelectasis and airspace disease similar as on the comparison CT 3 days prior concerning for bilateral pneumonia. Differential consideration would include drug reaction. [id number] CT CHEST W CONTRAST Result Date: 01/05/2024 1. Diminished lung volumes with evidence of atelectasis and/or scarring in the lungs bilaterally. 2. Patchy areas of groundglass type opacity within the lungs bilaterally have developed since the prior exam. Though possibly related to volume loss the appearance is concerning for infection. 3. Metastatic disease to the liver and spleen with a large amount of ascites. [id number] IR PARACENTESIS-RADIOLOGY Result Date: 01/03/2024 Successful, uncomplicated paracentesis using sonographic guidance yielding 3 L of fluid. LUNA Arguelles, PANitaC Interventional Radiology I have personally reviewed the images and the above interpretation and agree with the findings. [id number] Cardiac Imaging: Echocardiogram: Transthoracic Echocardiogram: Results have been documented within the past 5 years for the following orders TRANSTHORACIC ECHO (TTE) COMPLETE Interpretation Summary IVC/SVC: The inferior vena cava was normal in size. Left Ventricle: The left ventricular cavity was normal in size. Left ventricular systolic function was hyperdynamic with an ejection fraction =>65%. Left ventricular wall thickness was normal. Left ventricular wall motion was normal; there were no regional wall motion abnormalities. Right Ventricle: The right ventricular cavity was normal in size. Right ventricular systolic function was hyperdynamic. Normal tricuspid annular plane systolic excursion (TAPSE) >1.7 cm. Normal RVS' >9.5cm/s. Mitral Valve: There was mild mitral regurgitation. . Pertinent labs: ( Lab Results Component Value Date TRIGLYEXT 164 01/24/2017 CHOLEXT 208 01/24/2017 HDLEXT 54 01/24/2017 LDLEXT 121 01/24/2017 CLEXT 112 (A) 09/26/2023 CO2EXT 24 09/26/2023 KEXT 3.3 (A) 09/26/2023 SODIUMEXT 145 09/26/2023 BUNEXT 17 09/26/2023 CREATININEEX 0.7 09/26/2023 CALCGFREXT >60 09/26/2023 ASTEXT 71 (A) 09/26/2023 ALTEXT 44 09/26/2023 CALCIUMEXT 9 09/26/2023 ALBUMINEXT 2.9 (A) 09/26/2023 INR 1.2 (H) 12/12/2023 TSHEXT 2.390 01/24/2017 Pertinent Micro: 01/11/24 PJP PCR (BELKIS BAL): Positive Lab Results Component Value Date COVID-19 rt-PCR Result Negative 01/16/2024 Pulmonary Function Testing: Pulmonary Function Testing Results: Item: Date: 11/23/23 FEV1/FVC 78.58 67.97 -0.26 FVC (L) 2.35 1.86 -0.52 FEV1 (L) 1.84 1.47 -0.63 DLCO N/A N/A N/A SPIROMETRY: Normal airflow and vital capacity. No significant improvement in airflow following bronchodilator. Assessment and Plan Sunshine Pleitez is a 63 y.o. female with a PMHx significant for metastatic ER+ breast cancer(mets to liver c/b portal HTN, lymphadenopathy, bony mets), PE on Eliquis, and recent admission (01/08/24 - 01/19/24) for acute hypoxemic respiratory failure secondary to PJP vs. Trastuzumab pneumonitis. She presents today as a follow up visit with a request for pulmonary clearance to resume her Trastuzumab after having PJP. She says that her oncologist hopes to resume it once receiving ID and pulmonary approval. Labs and imaging were personally reviewed. Impression: Acute hypoxic respiratory failure PJP pneumonia, confirmed by BAL PCR Cannot rule out a component of Trastuzumab-related pneumonitis Recommendations: - Overall respiratory status is slowly improving compared to how significantly she was impaired during her recent hospitalization. Mrs. Pleitez remains on both prednisone and Atovaquone for her PJP pneumonia, which was confirmed by BAL PCR. She has come to the pulmonary office requesting clearance to resume Trastuzumab, which was initially thought to be the etiology of her acute lung injury until her PJP test returned positive. She should have about a week and a half left of her treatment course. - Given that we cannot say with complete certainty that Trastuzumab did not contribute to her acutelung injury, the risks and benefits of resuming it should be considered. We would recommend that she complete her entire treatment course for PJP treatment prior to restarting Trastuzumab given that it either may have contributed to this initial insult, or could have the potential to induce lung injury down the road. - Upon completion of her treatment course, we will obtain PFT's (including DLCO) and a CT chest WO to obtain new baselines prior to reinitiating treatment. - Respiratory status should be monitored closely upon restarting any chemotherapy agents. Discussedwith both And Mrs. Pleitez during today's visit. - In addition, she would benefit from strength training for her overall deconditioning, for which aPT referral has been provided today. Note to be forwarded to other specialties taking part in Mrs. Pleitez's treatment team. Please reach out with any questions. Patient was seen and examined with attending: Dr. Bianchi. Ana Quintanilla MD PGY-4 Pulmonary & Critical Care Fellow Attestation statement: I performed or was present during the knight or critical portions of the visit and participated in the management of the patient. I agree with the findings and plan of care documented in the resident's/fellow's note. Pavan Bianchi MD * Ana Quintanilla MD - 01/25/2024 1530 EDT Pulmonary Clinic Follow Up Visit PCP: Linda Blancas Requesting Provider: No ref. provider found. Date of Visit: 01/25/24 Chief Complaint: Clearance to start chemotherapy Sunshine Pleitez is a 63 y.o. female with a PMHx significant for metastatic ER+ breast cancer(mets to liver c/b portal HTN, lymphadenopathy, bony mets), PE on Eliquis, and recent admission (01/08/24 - 01/19/24) for acute hypoxemic respiratory failure secondary to PJP vs. Trastuzumab pneumonitis. Ms. Pleitez had a recent admission to [facility] 01/08/24 for worsening hypoxic respiratory failure. She was initially thought to have trastuzumab induced pneumonitis. She was started on prednisone. She underwent Bronchoscopy with BAL showing insignificant bx results but PJP on culture. All other BALtesting was negative. After the diagnosis of PJP was confirmed, she was started on atovaquone. Hospital course was complicated by recurrent ascites requiring 3 x paracentesis. She was ultimately discharged from the hospital on 01/19/24 with 8L oximyzer on atovaquone and prednisone for PJP treatment. Since being discharged from the hospital, Mrs. Pleitez has noticed a very gradual, and still incomplete, improvement in her respiratory status. She continues to use between 2.5 and 5L nasal cannula at home (only with ambulation/movement). She does mention that she has fallen 3 times since her di scharge in the setting of feeling suddenly light headed/dyspneic when leaning forward. She was seenin urgent care the other day for MSK [...] She is able to ambulate around stores on 2.5 liters without getting shrot of breath. She endorses feeling generally very weak and hopes to regain her strength as she recovers from this infection. History of Present Illness: Sunshine Pleitez is a 63 y.o. female with a PMHx significant for metastatic ER+ breast cancer(mets to liver c/b portal HTN, lymphadenopathy, bony mets), PE on Eliquis, and recent admission (01/08/24 - 01/19/24) for acute hypoxemic respiratory failure secondary to PJP vs. Trastuzumab pneumonitis. She presents today as a follow up visit with a request for pulmonary clearance to resume her Trastuzumab after having PJP. She says that her oncologist hopes to resume it once receiving ID and pulmonary approval. ROS: A complete 14 point ROS was conducted with pertinent findings including: Pulmonary History Vaccination History There is no immunization history for the selected administration types on file for this patient. There is no immunization history for the selected administration types on file for this patient. Immunization History Administered Date(s) Administered Covid-19 mRNA Vaccine (Loom Decor COVID-19) PF 0.3 ml IM (12 yrs+) 08/27/2020, 09/17/2020, 02/27/2021 General History PMH PSH has a past medical history of Acquired spondylolisthesis, Activity, other involving cardiorespiratory exercise, Allergy, Arthritis, Back pain, Breast cancer ([facility]) (11/2003), Breast cancer, right ([facility]), Depression, Environmental allergies, Exercise involving walking, GERD (gastroesophageal re flux disease), H/O spinal fusion, Herpes simplex virus (HSV) infection, History of general anesthesia, Immunosuppressed status ([facility]) (12.11.21), Liver disease (10.12.23), Lumbar radicular syndrome, Nausea & vomiting, Numbness, Pulmonary embolism ([facility]) (11.11.23), Reactive airway disease(09.12.23), Shortness of breath (09.12.23), Swelling (11.11.23), and Wears glasses. Past Surgical History: Procedure Laterality Date BACK SURGERY 12/2011 L3 - S1 spinal decompression and fusion - pt has hardware in place-[place] no complications BREAST RECONSTRUCTION 01/30/2004 subpectoral implant - [place] no complications BREAST RECONSTRUCTION 05/2018 right - [place] no complications BREAST SURGERY 01/30/2004 Right mastectomy - [place] no complications BREAST SURGERY 08/2018 die try out worker stamping placed right breast - [place] no complications CARPAL TUNNEL RELEASE 200705/07/2019 beir block - no complications EYE SURGERY Partially detached retina FOOT SURGERY 05/2021 right big toe fused, right little toe screw FRACTURE SURGERY Morrell fractures in both feet,right big toe fusion LIPOMA RESECTION 200005/07/2019 [place] no complications CA INSJ/RPLCMT BREAST IMPLANT Feb MASTECTOMY Bilateral 05/30/2019 Exchange right tissue die try out worker stamping to silicone implant, exchange of left implant for matching performedby Tylor Boss MD at [facility] [place] has a past surgical history that includes Carpal tunnel release (2007); lipoma resection (2000); Breast surgery (01/30/2004); Breast reconstruction (01/30/2004); Breast surgery (08/2018); Breast reconstruction (05/2018); pr insj/rplcmt breast implant feb day mastectomy (Bilateral, 05/30/2019); back surgery (12/2011); Foot surgery (05/2021); eye surgery (); and fracture surgery. Social History Family history Social History Socioeconomic History Marital status: Spouse name: Not on file Number of children: Not on file Years of education: Not on file Highest education level: Not on file Occupational History Not on file Tobacco Use Smoking status: Never Passive exposure: Never Smokeless tobacco: Never Vaping Use Vaping status: Never Used Substance and Sexual Activity Alcohol use: Not Currently Alcohol/week: 1.0 standard drink of alcohol Types: 1 Glasses of wine per week Drug use: No Sexual activity: Not Currently Partners: Male Other Topics Concern Not on file Social History Narrative Not on file Social Determinants of Health Financial Strain: Not on file Food Insecurity: No Food Insecurity (01/08/2024) Hunger Vital Sign Worried About Running Out of Food in the Last Year: Never true Ran Out of Food in the Last Year: Never true Transportation Needs: No Transportation Needs (01/10/2024) PRAPARE - Transportation Lack of Transportation (Medical): No Lack of Transportation (Non-Medical): No Physical Activity: Not on file Housing Stability: Low Risk (01/10/2024) Housing Stability Vital Sign Unable to Pay for Housing in the Last Year: No Number of Times Moved in the Last Year: 0 Homeless in the Last Year: No Lives: at home with Family History Problem Relation Age of Onset Cancer Father Lung cancer Heart Disease Father Stroke Mother Mental Illness Mother Bipolar *Other(comment) Sister SA valve failure Cancer Brother 59 esophageal Stroke Brother Blot clot in his sleep Liver Disease Brother Cancer Maternal Uncle bladder Breast Cancer Paternal Aunt 35 Cancer Paternal Aunt 35 breast Cancer Paternal Aunt Breast cancer Medications Current Outpatient Medications Medication Instructions apixaban (ELIQUIS) 5 mg, oral, 2 TIMES DAILY atovaquone (MEPRON) 1,500 mg, oral, EVERY 24 HOURS calcium-vitamin D (OS-CHAR D) 500 mg(1,250mg) -200 unit per tablet 1 Tablet, oral, 2 TIMES DAILY WITH BREAKFAST & DINNER, cholecalciferol (Vitamin D3) 1,000 Units, oral, DAILY cyclobenzaprine (FLEXERIL) 10 mg, oral, 2 TIMES DAILY PRN dexAMETHasone (DECADRON) 8 mg, oral, DAILY, Take on days 2 and 3 after chemotherapy. furosemide (LASIX) 20 mg, oral, DAILY gabapentin (NEURONTIN) 200 mg, oral, 3 TIMES DAILY HYDROmorphone (DILAUDID) 2 mg, oral, AT BEDTIME PRN ipratropium-albuteroL (DUONEB) 0.5 mg-3 mg(2.5 mg base)/3 mL nebulizer solution 3 mL, nebulization,EVERY 6 HOURS PRN MULTIVITS W-CA,FE,OTHER MIN (WOMEN'S DAILY FORMULA ORAL) oral, DAILY naloxone (NARCAN) 4 mg/actuation nasal spray 1 [place], nasal, PRN omeprazole (PRILOSEC) 40 mg, oral, 2 TIMES DAILY predniSONE (DELTASONE) 20 mg tablet Take 2 Tablets by mouth daily for 2 days, THEN 1 Tablet daily for 10 days. prochlorperazine (COMPAZINE) 10 mg, oral, EVERY 6 HOURS PRN RED YEAST RICE EXTRACT ORAL 1,200 mg, oral, DAILY, 600mg 2x a day senna (SENOKOT) 8.6 mg tablet 2 Tablets, oral, DAILY spironolactone (ALDACTONE) 100 mg, oral, DAILY valACYclovir (VALTREX) 500 mg, oral, DAILY venlafaxine (EFFEXOR-XR) 75 mg, oral, DAILY Allergies Allergies Allergen Reactions Amoxicillin Other (See Comments) and Rash Red rash Sulfa (Sulfonamide Antibiotics) Hives Light lavender rash Sulfamethoxazole-Trimethoprim Rash Objective There were no vitals taken for this visit. There is no height or weight on file to calculate BMI. Physical Exam: Gen: Chronically ill woman in no acute distress. HENT: Sclerae anicteric, no oral exudates; no nasal lesions noted Lymph: No submandibular, cervical, or supraclavicular lymphadenopathy CV: RRR, S1/S2, no murmurs Lungs: Symmetric chest expansion. Clear to auscultation bilaterally. No rales, rhonchi, or wheezing Abd: Soft, non-distended, bowel sounds present Ext: No pedal edema; no noted clubbing or cyanosis. Skin: Warm and dry; Scattered ecchymoses Neuro: A & O x 3, ambulates independently Psych: appropriate, cooperative and pleasant Imaging: XR CHEST 2 VIEWS Result Date: 01/16/2024 1. No acute abnormality. 2. Improving bilateral linear atelectasis. 3. Right chest port and catheter. I have personally reviewed the images and the above interpretation and agree with the findings. [id number] IR PARACENTESIS-RADIOLOGY Result Date: 01/10/2024 1. Successful ultrasound guided paracentesis. [id number] XR CHEST PORTABLE 1 VIEW Result Date: 01/08/2024 Interposed areas of atelectasis and airspace disease similar as on the comparison CT 3 days prior concerning for bilateral pneumonia. Differential consideration would include drug reaction. [id number] CT CHEST W CONTRAST Result Date: 01/05/2024 1. Diminished lung volumes with evidence of atelectasis and/or scarring in the lungs bilaterally. 2. Patchy areas of groundglass type opacity within the lungs bilaterally have developed since the prior exam. Though possibly related to volume loss the appearance is concerning for infection. 3. Metastatic disease to the liver and spleen with a large amount of ascites. [id number] IR PARACENTESIS-RADIOLOGY Result Date: 01/03/2024 Successful, uncomplicated paracentesis using sonographic guidance yielding 3 L of fluid. LUNA Arguelles, GRISEL Interventional Radiology I have personally reviewed the images and the above interpretation and agree with the findings. [id number] Cardiac Imaging: Echocardiogram: Transthoracic Echocardiogram: Results have been documented within the past 5 years for the following orders TRANSTHORACIC ECHO (TTE) COMPLETE Interpretation Summary IVC/SVC: The inferior vena cava was normal in size. Left Ventricle: The left ventricular cavity was normal in size. Left ventricular systolic function was hyperdynamic with an ejection fraction =>65%. Left ventricular wall thickness was normal. Left ventricular wall motion was normal; there were no regional wall motion abnormalities. Right Ventricle: The right ventricular cavity was normal in size. Right ventricular systolic function was hyperdynamic. Normal tricuspid annular plane systolic excursion (TAPSE) >1.7 cm. Normal RVS' >9.5cm/s. Mitral Valve: There was mild mitral regurgitation. . Pertinent labs: ( Lab Results Component Value Date TRIGLYEXT 164 01/24/2017 CHOLEXT 208 01/24/2017 HDLEXT 54 01/24/2017 LDLEXT 121 01/24/2017 CLEXT 112 (A) 09/26/2023 CO2EXT 24 09/26/2023 KEXT 3.3 (A) 09/26/2023 SODIUMEXT 145 09/26/2023 BUNEXT 17 09/26/2023 CREATININEEX 0.7 09/26/2023 CALCGFREXT >60 09/26/2023 ASTEXT 71 (A) 09/26/2023 ALTEXT 44 09/26/2023 CALCIUMEXT 9 09/26/2023 ALBUMINEXT 2.9 (A) 09/26/2023 INR 1.2 (H) 12/12/2023 TSHEXT 2.390 01/24/2017 Pertinent Micro: 01/11/24 PJP PCR (BELKIS BAL): Positive Lab Results Component Value Date COVID-19 rt-PCR Result Negative 01/16/2024 Pulmonary Function Testing: Pulmonary Function Testing Results: Item: Date: 11/23/23 FEV1/FVC 78.58 67.97 -0.26 FVC (L) 2.35 1.86 -0.52 FEV1 (L) 1.84 1.47 -0.63 DLCO N/A N/A N/A SPIROMETRY: Normal airflow and vital capacity. No significant improvement in airflow following bronchodilator. Assessment and Plan Sunshine Pleitez is a 63 y.o. female with a PMHx significant for metastatic ER+ breast cancer(mets to liver c/b portal HTN, lymphadenopathy, bony mets), PE on Eliquis, and recent admission (01/08/24 - 01/19/24) for acute hypoxemic respiratory failure secondary to PJP vs. Trastuzumab pneumonitis. She presents today as a follow up visit with a request for pulmonary clearance to resume her Trastuzumab after having PJP. She says that her oncologist hopes to resume it once receiving ID and pulmonary approval. Labs and imaging were personally reviewed. Impression: Acute hypoxic respiratory failure PJP pneumonia, confirmed by BAL PCR Cannot rule out a component of Trastuzumab-related pneumonitis Recommendations: - Overall respiratory status is slowly improving compared to how significantly she was impaired during her recent hospitalization. Mrs. Pleitez remains on both prednisone and Atovaquone for her PJP pneumonia, which was confirmed by BAL PCR. She has come to the pulmonary office requesting clearance to resume Trastuzumab, which was initially thought to be the etiology of her acute lung injury until her PJP test returned positive. She should have about a week and a half left of her treatment course. - Given that we cannot say with complete certainty that Trastuzumab did not contribute to her acutelung injury, the risks and benefits of resuming it should be considered. We would recommend that she complete her entire treatment course for PJP treatment prior to restarting Trastuzumab given that it either may have contributed to this initial insult, or could have the potential to induce lung injury down the road. - Upon completion of her treatment course, we will obtain PFT's (including DLCO) and a CT chest WO to obtain new baselines prior to reinitiating treatment. - Respiratory status should be monitored closely upon restarting any chemotherapy agents. Discussedwith both And Mrs. Pleitez during today's visit. - In addition, she would benefit from strength training for her overall deconditioning, for which aPT referral has been provided today. Note to be forwarded to other specialties taking part in Mrs. Pleitez's treatment team. Please reach out with any questions. Patient was seen and examined with attending: Dr. Bianchi. Ana Quintanilla MD PGY-4 Pulmonary & Critical Care Fellow Attestation statement: I performed or was present during the knight or critical portions of the visit and participated in the management of the patient. I agree with the findings and plan of care documented in the resident's/fellow's note. Pavan Bianchi MD documented in this encounter Miscellaneous Notes * Addendum Note - Ana Quintanilla MD - 01/25/2024 1530 EDTAddended by: ANA QUINTANILLA on: 01/31/2024 19:49 Modules accepted: Orders documented in this encounter Plan of Treatment Upcoming Encounters Date Type Department Care Team (Late st Contact Info) Description 04/02/2024 10:30 EDT Appointment [facility] Interventional Radiology Unit [address] [place] [id number] 04/02/2024 15:15 EDT Office Visit [facility] Surgical Oncology - [address] [id number] Adolfo Carreno MD [address] [place] [address] [phone] 04/05/2024 9:30 EDT Telemedicine [facility] Palliative Care Services [address] [place] [address] [phone] Chichi Woods MD [address] [place] [address] [phone] 04/11/2024 15:00 EDT Telemedicine [facility] [place] Hematology & Oncology - [address] [phone] Alisson Carreon MD [address] [place] [address] [phone] 04/13/2024 13:30 EDT Appointment [facility] [place] Hematology & Oncology - [address] [phone] 04/13/2024 14:00 EDT Appointment [facility] [place] Hematology & Oncology - [address] [address] 04/16/2024 10:00 EST Telemedicine [facility] Palliative Care Services [address] [place] [address] [phone] Chichi Woods MD [address] [place] [address] [phone] 04/24/2024 9:00 EST Appointment [facility] Radiology CT Outpatient - [address] [address] 04/24/2024 11:00 EST Appointment [facility] Breast Imaging - [facility] [address] [place] [address] [place] [address] 04/27/2024 12:00 EST Appointment [facility] [place] Hematology & Oncology [address] [address] 05/02/2024 15:00 EST Telemedicine [facility] [place] Hematology & Oncology [address] [address] Alisson Carreon MD [address] [place] [address], Level 2 [place] [phone] 05/04/2024 10:15 EST Ancillary Procedure [facility] Cardiology - [place] [address] 05/04/2024 11:30 EST Appointment [facility] [place] Hematology & Oncology [address] [phone] 05/04/2024 12:00 EST Appointment [facility] [place] Hematology & Oncology [address] 118121 06/12/2024 13:00 EST Appointment [facility] Radiology CT - [address] [phone] Pending Results Name Type Priority Associated Diagnoses Date /Time PULMONARY FUNCTION TESTING PFT Routine Diffuse alveolar damage ([facility]) 03/08/2024 11:14 EDT Scheduled Orders Name Type Priority Associated Diagnoses Orde r Schedule CT CHEST WO CONTRAST Imaging Routine Diffuse alveolar damage ([facility]) Expected: 02/02/2024 (Approximate), Expires: 08/02/2025 Scheduled Referrals Name Type Priority Associated Diagnoses Order Schedule AMB CONS/FOLLOW UP PHYSICAL THERAPY - OUTSIDE OF NETWORK Outpatient Referral Routine/Next Available Diffuse alveolar damage ([facility]) Expected: 04/26/2024 (Approximate), Expires: 01/24/2025 documented as of this encounter Results * CT CHEST WO [...] similar distribution and difficult to entirely exclude. [id number] Narrative 02/07/2024 10:[address] CHEST WO [...] posterior right sixth rib. Resulting Agency Comment [id number] Procedure Note Mallorie Andrews MD - 02/07/2024 [...] a similardistribution and difficult to entirely exclude. [id number] Pavan Bianchi MD IMG CT ORDERABLES documented in this encounter Visit Diagnoses Diagnosis Diffuse alveolar damage (HCC-CMS)- Primary Other diseases of lung, not elsewhere classified Diffuse alveolar damage (HCC-CMS) Other diseases of lung, not elsewhere classified documented in this encounter Care Teams Answering Service Agent Relationship Specialty Start Date End Date Linda Blancas MD [address] [place] [address] 30 [place] [address] PCP - General 01/06/11 Adolfo Carreno MD [address] [place] [address], [facility], Level 2 [place] [phone] General Surgery 04/26/19 documented as of this encounter
--- OUTSIDE RECORDS SUMMARY | 2024-03-20 14:34 | XMS_ITS | Encounter Summary ---
Author Organization [facility] Address [address] [place] [address] Care Team Providers Care Office Executive Name Role Phone Linda Blancas MD Primary Care Provider Adolfo Carreno MD Unavailable [phone] Reason for Referral * Cardiology (Routine/Next Available) - Authorization Not Required Specialty Diagnoses / Procedures Referred By Contac t Referred To Contact Diagnoses Primary malignant neoplasm of breast with metastasis (HCC-CMS) Malignant neoplasm of right female breast, unspecified estrogen receptor status, unspecified site of breast (HCC-CMS) Abnormal electrocardiogram (ECG) (EKG) Procedures TRANSTHORACIC ECHO (TTE) LIMITED [place] ECHO TRANSTHORC R-T 2D W/WO M-MODE REC F-UP/LMTD Alisson Carreon MD [address] [facility] 2 [place] [address] [facility] Referral ID Status Reason Start Date Expiration Date Visits Requested Visits Authorized [id number] Authorization Not Required 11/29/2023 1 1 Reason for Visit * Cardiology (Routine/Next Available) - Authorization Not Required Specialty Diagnoses / Procedures Referred By Contac t Referred To Contact Diagnoses Primary malignant neoplasm of breast with metastasis (HCC-CMS) Malignant neoplasm of right female breast, unspecified estrogen receptor status, unspecified site of breast (HCC-CMS) Abnormal electrocardiogram (ECG) (EKG) Procedures TRANSTHORACIC ECHO (TTE) LIMITED [place] ECHO TRANSTHORC R-T 2D W/WO M-MODE REC F-UP/LMTD Alisson Carreon MD 111 [facility], Level [address] [place] [address] [facility] Referral ID Status Reason Start Date Expiration Date Visits Requested Visits Authorized [id number] Authorization Not Required 11/29/2023 1 1 Encounter Details Date Type Department Care Team (Latest Contact Info) Description 01/31/2024 6:52 EDT - 01/31/2024 10:26 EDT Hospital Encounter [facility] Non-Invasive Cardiology - [address] [address] Primary malignant neoplasm of breast with metastasis (HCC-CMS); Malignant neoplasm of right female breast, unspecified estrogen receptor status, unspecified site of breast (HCC-CMS); Abnormal electrocardiogram (ECG) (EKG) Discharge Disposition: Home or Self Care Social History Tobacco Use Types Packs/Day Years Used Date Smoking Tobacco: Never Passive Smoke Exposure: Never Smokeless Tobacco: Never Alcohol Use Standard Drinks/Week Comments Not Currently 1 (1 standard drink = 0.6 oz pur e alcohol) [facility] Utilities Answer Date Recorded In the past 12 months has th e [employer], gas, oil, or water [employer] threatened to shut off services in your [...] any time in the past 12 m [facility], were you homeless or living [...] Sign Reading Time Taken Comments Blood Pressure 123/60 01/31/2024 0943 EDT Pulse - - Temperature - - Respiratory Rate - - Oxygen Saturation - - Inhaled Oxygen Concentration - - Weight 54.4 kg (120 lb) 01/31/2024 0943 EDT Height 154.9 cm (5' 0.98) 01/31/2024 0943 EDT Body Mass Index 22.69 01/31/2024 0943 EDT documented in this encounter [...] to Pneumocystis jirovecii, 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[facility]) Take 3 mL by nebulization every 6 [...] Tablet 01/20/2024 02/01/2024 prochlorperazine (COMPAZINE) 10 mg tabletIndications:[facility]offrey malignant neoplasm of breast with metastasis [...] Contact Info) Description 04/02/2024 10:30 EDT Appointment [facility] Interventional Radiology Unit [address] [place] [address] [phone] 04/02/2024 15:15 EDT Office Visit [facility] Surgical Oncology - [facility] [address] [place], [place] 984141 Adolfo Carreno MD 111 [facility], Level [address] [place] [phone] 04/05/2024 9:30 EDT Telemedicine [facility] Palliative Care Services [address] [place], [place] 726671 Chichi Woods MD [address] [place] [address] [address] [place] [phone] 04/11/2024 15:00 EDT Telemedicine [facility] Hematology & Oncology [address] 133191 Alisson Carreon MD [address] [place] [address], [address] [place] [phone] 04/13/2024 13:30 EDT Appointment [facility] Hematology & Oncology [address] [phone] 04/13/2024 14:00 EDT Appointment [facility] Hematology & Oncology [address] [address] 04/16/2024 10:00 EST Telemedicine [facility] Palliative Care Services [address] [place] [address] [phone] Chichi Woods MD [address] [place] [address] [phone] 04/24/2024 9:00 EST Appointment [facility] Radiology CT Outpatient - [address] [phone] 04/24/2024 11:00 EST Appointment [facility] Breast Imaging - [address] 171471 04/27/2024 12:00 EST Appointment [facility] Hematology & Oncology - [address] [phone] 05/02/2024 15:00 EST Telemedicine [facility] Hematology & Oncology - [address] [phone] Alisson Carreon MD 111 [facility], [address] [place] [phone] 05/04/2024 10:15 EST Ancillary Procedure [facility] - [address] [place] [address] 05/04/2024 11:30 EST Appointment [facility] Hematology & Oncology - [address] [phone] 05/04/2024 12:00 EST Appointment [facility] Hematology & Oncology [address] [phone] 06/12/2024 13:00 EST Appointment [facility] Radiology CT - [facility] [address] [place], [place] 357641 documented as of this encounter Procedures Procedure Name Priority Date/Time Associated Diagnosis Comments TRANSTHORACIC ECHO (TTE) LIMITED Routine 01/31/2024 9:43 EDT Primary malignant neoplasm of breast with metastasis (HCC-CMS) Malignant neoplasm of right female breast, unspecified estrogen receptor status, unspecified site of breast (HCC-CMS) Abnormal electrocardiogram (ECG) (EKG) documented in this encounter Results * TRANSTHORACIC ECHO (TTE) LIMITED W/DOPPLER W/CF [...] color Doppler.The study was interpreted by [facility] Cardiology. Pertinent images and digital data are archived for permanent storage and are available for subsequent review. Scanning was performed from the apical, parasternal, subcostal and suprasternal acoustic windows. Overall the study quality was adequate. Images were obtained using cardiac ultrasound machine EPIQ #[id number]. Alisson Carreon MD CARDIAC ECHO ORDERA BLES documented in this encounter Visit Diagnoses Diagnosis Primary malignant neoplasm of breast with metastasis (HCC-CMS) Malignant neoplasm of right female breast, unspecified estrogen receptor status, unspecified site of breast (HCC-CMS) Abnormal electrocardiogram (ECG) (EKG) documented in this encounter Care Teams Office Executive Relationship Specialty Start Date End Date Linda Blancas MD [facility] [address] [place] [address] PCP - General 01/06/11 Adolfo Carreno MD [address] [place] [address] 2 [place] [phone] General Surgery 04/26/19 documented as of this encounter
--- OUTSIDE RECORDS SUMMARY | 2024-03-20 14:34 | XMS_ITS | Encounter Summary ---
Author Organization [facility] Address [address] [place] [address] Care Team Providers Care Staff Command And Control Officer Name Role Phone Linda Blancas MD Primary Care Provider Adolfo Carreno MD Unavailable [phone] Reason for Visit * Reason Onset Date Comments Other 01/27/2024 Encounter Details Date Type Department Care Team (Late st Contact Info) Description 01/27/2024 Telephone [facility] Infectious Disease - [address] [phone] Errol Ferrell MD [address] [place] [address], [address] [place] [phone] Other Social History Tobacco Use Types Packs/Day Years Used Date Smoking Tobacco: Never Passive Smoke Exposure: Never Smokeless Tobacco: Never Alcohol Use Standard Drinks/Week Comments Not Currently 1 (1 standard drink = 0.6 oz pur e alcohol) [facility] Utilities Answer Date Recorded In the past 12 months has [employer], gas, oil, or water company threatened [...] any time in the past 12 m [facility], were you homeless or living in [...] encounter Miscellaneous Notes * Telephone Encounter - Charlette Gutierrez - 01/27/2024 1044 EDT Pt spoke with Sandhya Curry, she wanted to apologies for not getting back to her yesterday but to let her know that she is On Board with the plan. Tel [phone] documented in this encounter Plan of Treatment Upcoming Encounters Date Type Department Care Team (Late st Contact Info) Description 04/02/2024 10:30 EDT Appointment [facility] Interventional Radiology Unit [address] [place] [phone] 04/02/2024 15:15 EDT Office Visit [facility] Surgical Oncology - [address] 774661 Adolfo Carreno MD [address] [place] [address] 2 [place] [phone] 04/05/2024 9:30 EDT Telemedicine [facility] - [facility] Palliative Care Services [address] [place] [address] [phone] Chichi Woods MD [address] [place] [address], [address] [phone] 04/11/2024 15:00 EDT Telemedicine [facility] Hematology & Oncology - [address] [phone] Alisson Carreon MD [address] [place] [address] 2 [place] [phone] 04/13/2024 13:30 EDT Appointment [facility] Hematology & Oncology [address] [phone] 04/13/2024 14:00 EDT Appointment [facility] Hematology & Oncology - [address] 668201 04/16/2024 10:00 EST Telemedicine [facility] - [facility] Palliative Care Services [address] [place] [address] Chichi Woods MD 111 [facility], [address] [phone] 04/24/2024 9:00 EST Appointment [facility] Radiology CT Outpatient - [address] [phone] 04/24/2024 11:00 EST Appointment [facility] Breast Imaging - [facility] [address] [place] [address] [place], [place] [phone] 04/27/2024 12:00 EST Appointment [facility] Hematology & Oncology - [address] [phone] 05/02/2024 15:00 EST Telemedicine [facility] Hematology & Oncology - [address] [phone] Alisson Carreon MD [address] [place] [address], [address] [place] [phone] 05/04/2024 10:15 EST Ancillary Procedure [facility] Cardiology - [address] [place] [address] 05/04/2024 11:30 EST Appointment [facility] Hematology & Oncology - [address] [phone] 05/04/2024 12:00 EST Appointment [facility] Hematology & Oncology - [address] [address] 06/12/2024 13:00 EST [facility]ointment [facility] Radiology [facility] - [address] [phone] documented as of this encounter Visit Diagnoses Not on filedocumented in this encounter Care Teams Staff Command And Control Officer Relationship Specialty Start Date End Date Linda Blancas MD [address] [place] [address] 30 [place] [address] PCP - General 01/06/11 Adolfo Carreno MD [address] [place] [address] [address] [place] [phone] General Surgery 04/26/19 documented as of this encounter
--- OUTSIDE RECORDS SUMMARY | 2024-03-20 14:34 | XMS_ITS | Encounter Summary ---
Author Organization [facility] Address [address] [place] [address] Care Team Providers Care Helminthologist Name Role Phone Linda Blancas MD Primary Care Provider [phone] Adolfo Carreno MD Unavailable [phone] Reason for Referral * Radiology Services (Routine/Next Available) - Authorization Not Required Specialty Diagnoses / Procedures Referred By Contac t Referred To Contact Diagnoses Other ascites Malignant neoplasm of female breast, unspecified estrogen receptor status, unspecified laterality, unspecified site of breast (HCC-CMS) Metastatic malignant neoplasm, unspecified site (HCC-CMS) Procedures IR PARACENTESIS-RADIOLOGY Jackie Juan MD [address] [place] [id number] [facility] Referral ID Status Reason Start Date Expiration Date Visits Requested Visits Authorized [id number] Authorization Not Required 01/12/2024 2 2 Reason for Visit * Radiology Services (Routine/Next Available) - Authorization Not Required Specialty Diagnoses / Procedures Referred By Contac t Referred To Contact Diagnoses Other ascites Malignant neoplasm of female breast, unspecified estrogen receptor status, unspecified laterality, unspecified site of breast (HCC-CMS) Metastatic malignant neoplasm, unspecified site (HCC-CMS) Procedures IR PARACENTESIS-RADIOLOGY Jackie Juan MD [address] [place] [id number] [facility] Referral ID Status Reason Start Date Expiration Date Visits Requested Visits Authorized [id number] Authorization Not Required 01/12/2024 2 2 Encounter Details Date Type Department Care Team (Late st Contact Info) Description 01/25/2024 10:14 EDT - 01/25/2024 23:[address] [facility] Interventional Radiology Unit [address] [place], [place] [address] Mustapha Nguyen MD [address] [facility] Level 1 [place] [address] Other ascites; Malignant neoplasm of female breast, unspecified estrogen receptor status, unspecified laterality, unspecified site of breast (HCC-CMS) [C50.919]; Metastatic malignant neoplasm, unspecified site ([facility]-CMS) [C79.9] Discharge Disposition: Home or Self Care Social History Tobacco Use Types Packs/Day Years Used Date Smoking Tobacco: Never Passive Smoke Exposure: Never Smokeless Tobacco: Never Alcohol Use Standard Drinks/Week Comments Not Currently 1 (1 standard drink = 0.6 oz pur e alcohol) [facility] Utilities Answer Date Recorded In the [...] Sign Reading Time Taken Comments Blood Pressure 131/71 01/25/2024 1147 EDT Pulse - - Temperature - - Respiratory Rate 17 01/25/2024 1147 EDT Oxygen Saturation 99% 01/25/2024 1147 EDT Inhaled Oxygen Concentration - - Weight [...] this encounter Discharge Instructions * Discharge Instructions* Clemencia Troy RN - 01/25/2024 11:18 EDT Interventional Radiology Discharge Instructions Date: 01/25/2024 Procedure: Paracentesis (removal of fluid from your abdomen) Provider: Mustapha Nguyen MD Aftercare: Activity: Rest today. Do not lift [...] previously been told to avoid this medication. We have sent a fluid sample to the lab, and the results will go to the provider [...] after your procedure. When to contact the [facility] (call 911 if symptoms are severe): [...] the symptoms above, please call: Tuesday-Tuesday 8-4:30: [phone] (option 2) This phone number will connect you to the nurse triage line. Please note, phone calls after 4 pm may not be returned until the next business day. After hours and weekends: For urgent issues, you may speak to a physician aoc director combat operations officer by dialing [phone] and ask to speak with the vice president of advertising aoc director combat operations officer. documented in this encounter Medications at Time [...] estrogen receptor status, unspecified site of breast ([facility]) Take 1 Tablet by mouth 2 times daily as needed for Muscle Spasms. 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 30 Capsule 11 01/06/2024 12/31/2024 apixaban (ELIQUIS) 5 mg tabletIndications:Ani hale malignant neoplasm of breast with metastasis (HCC-CMS) Take 1 Tablet by mouth 2 times daily. 60 Tablet 11 12/07/2023 03/13/2024 atovaquone (MEPRON) 750 mg/5 mL suspension Take 10 mL by mouth every 24 hours for 30 days. 300 mL 01/12/2024 02/15/2024 dexAMETHasone (DECADRON) 4 mg tabletIndications:Ani hale malignant neoplasm of breast with metastasis (HCC-CMS) Take 2 Tablets by mouth daily. Take on days 2 and 3 after chemotherapy. 12 Tablet 5 12/26/2023 01/31/2024 furosemide (LASIX) 20 mg tablet Take 1 Tablet by mouth daily. 30 Tablet 1 11/30/2023 01/26/2024 gabapentin (NEURONTIN) 100 mg capsule Take 2 [...] for Nausea. 30 Tablet 5 10/17/2023 02/15/2024 senna (SENOKOT) 8.6 mg tablet Take 2 Tablets by mouth daily for 30 days. 60 Tablet 01/19/2024 01/31/2024 spironolactone (ALDACTONE) 100 mg tablet Take 1 Tablet by mouth daily for 30 days. 30 Tablet 01/20/2024 02/19/2024 documented as of this encounter Discharge Disposition Disposition Code Departure Means Destination Home or Self Care documented in this encounter Progress Notes * Clemencia Troy RN - 01/25/2024 1030 EDT Pt brought to IR 27 at 10:45 after correctly identifying. Pt in agreement with plan for paracentesis. Pt's allergies, med list, labs, and H&P assessed. Pt verbalizes understanding of procedure - all questions answered. Pt arrives alert and oriented x4 on home 2.5L NC w/o c/o pain or distress. Pt positioned in semi cheng's position on stretcher. VS assessed. Pt prepped with CHG by [facility] according to manufacturing standard/recommendations. 11:00 - Time out and procedure started. 11:45 - Procedure ended. A total of 1500 mL of yellow ascitic fluid removed. See provider note for procedure outcome. Pt tolerated procedure well. Samples of ascitic fluid sent to lab for ordered total fluid protein and cytology. Blood sample taken for ordered BMP and sent to lab. At d/c from room patient alert and oriented x4 without c/o pain, VSS on home 2L NC, and drsg at site c/d/i. Patient given printed discharge instructions and she stated understanding. Pt d/c'd from hospital via wheelchair with her . documented in this encounter Procedure Notes * Mustapha Nguyen MD - 01/25/2024 1030 EDT IR Procedure Note Procedure: Ultrasound guided paracentesis Date Performed: 01/25/2024 Radiologist/Cloak Room Attendant(s): Patrick Sedation/Anesthesia: local lidocaine Time Out: A time-out was completed prior to procedure verifying correct patient, procedure, site, positioning, and special equipment if applicable. Estimated Blood Loss: Unless otherwise noted, there was no blood loss, specimens removed, cultures obtained, or drains retained. Specimens: 1.5 liters of clear yellow fluid Fluoroscopy Time: none Contrast Volume: none Complications: none Condition: stable Post Procedure Diagnosis: same Findings: Successful paracentesis Recommendations: per clinical team Mustapha Nguyen MD 01/25/2024 11:49 documented in this encounter Plan of Treatment Upcoming Encounters Date Type Department Care Team (Late st Contact Info) Description 04/02/2024 10:[address] [facility] Interventional Radiology Unit [address] [place] [address] 04/02/2024 15:[address] [facility] Surgical Oncology - [address] [phone] Adolfo Carreno MD [address] [place] [address] [phone] 04/05/2024 9:30 EDT Telemedicine [facility] Palliative Care Services [address] [place] [phone] Chichi Woods MD [address] [place] [address] [phone] 04/11/2024 15:00 EDT Telemedicine [facility] Hematology & Oncology - [address] [phone] Alisson Carreon MD [address] [place] [address] [phone] 04/13/2024 13:30 EDT Appointment [facility] Hematology & Oncology - [address] [phone] 04/13/2024 14:00 EDT Appointment [facility] Hematology & Oncology - [address] [phone] 04/16/2024 10:00 EST Telemedicine [facility] Palliative Care Services [address] [place] [address] [phone] Chichi Woods MD [address] [place] [address] [phone] 04/24/2024 9:00 EST Appointment [facility] Radiology CT Outpatient - [address] [address] 04/24/2024 11:[address] [facility] Breast Imaging - [address] [place] [address] 04/27/2024 12:00 EST Appointment [facility] Hematology & Oncology - [address] [phone] 05/02/2024 15:00 EST Telemedicine [facility] Hematology & Oncology [address] [phone] Alisson Carreon MD [address] [place] [address], Level [address] [place] [phone] 05/04/2024 10:[address] [facility] Cardiology - [place] [address] 05/04/2024 11:30 EST Appointment [facility] Hematology & Oncology - [address] [phone] 05/04/2024 12:00 EST Appointment [facility] Hematology & Oncology [address] 480031 06/12/2024 13:00 EST Appointment [facility] Radiology CT - [address] [phone] documented as of this encounter Procedures Procedure Name Priority Date/Time Associated Diagnosis Comments IR PARACENTESIS-RADIOL OGY Routine 01/25/2024 12:00 EDT Other ascites Malignant neoplasm of female breast, unspecified estrogen receptor status, unspecified laterality, unspecified site of breast (HCC-CMS) [C50.919] Metastatic malignant neoplasm, unspecified site (HCC-CMS) [C79.9] BASIC METABOLIC PANEL (BMP) Routine 01/25/2024 11:11 EDT Other ascites TOTAL PROTEIN, FLUID Routine 01/25/2024 11:02 EDT Other ascites documented in this encounter Results * IR PARACENTESIS-RADIOLOGY (01/25/2024 12:00 EDT) Anatomical Region Laterality Modality N/A X-Ray Angiograph y 01/25/2024 15:3 8 EDT Impressions 01/25/2024 15:38 EDT Successful removal of 1.5 liters of ascitic fluid from the abdomen. [id number] Narrative 01/25/2024 15:38 EDT Ultrasound-guided paracentesis; 01/25/2024 [...] anesthesia, and real-time ultrasound guidance, a 5 Algerian sheath needle was advanced into the pocket [...] this procedure was 0. Resulting Agency Comment [id number] Procedure Note Mustapha Nguyen MD - 01/25/2024 [...] lidocaine anesthesia, and real-timeultrasound guidance, a 5 Algerian sheath needle was advanced into the pocketof [...] liters of ascitic fluid from the abdomen. [id number] Jackie Juan MD [facility] IR ORDERABLES * (ABNORMAL) BASIC METABOLIC PANEL (BMP) (01/25/2024 11:11 EDT) Sodium 136 136 - 145 mmol/L 01/25/2024 12:30 [facility] Potassium 5.3(H) 3.5 - 5.0 mmol/L 01/25/2024 12:30 [facility] Comment:Slight hemolysis gonzalez ntified, interpret with caution as hemolysis will elevate potassium result. Chloride 97 96 - 110 mmol/L 01/25/2024 12:30 [facility] CO2 Total 30 22 - 32 mmol/L 01/25/2024 12:30 [facility] Anion Gap 9 5 - 14 mmol/L 01/25/2024 12:30 [facility] Glucose 111(H) 70 - 99 mg/dl 01/25/2024 12:30 [facility] Calcium 8.9 8.5 - 10.5 mg/dL 01/25/2024 12:30 [facility] BUN 15 10 - 26 mg/dL 01/25/2024 12:30 [facility] Comment: Slight hemolysis identified, interpret with caution as results may be affected due to hemolysis. Creatinine 0.54 0.52 - 1.04 mg/dL 01/25/2024 12:30 [facility] eGFR 104 >60 mL/min/1.7 3m2 01/25/2024 12:30 [facility] Blood VENOUS BLOOD / Unknown Venipuncture / Unknown 01/25/2024 11:11 EDT 01/25/2024 11:21 EDT Hugo Vergara MD PhD CHEMISTRY & BLO OD GAS ORDERABLES Performing Organization Address City/[facility]/ZIP Co de Phone Number [facility] [address] [place], [place] [id number] * TOTAL PROTEIN, FLUID (01/25/2024 11:02 EDT) Total Protein, Fluid <2.0 See Note g/dL 01/25/2024 12:31 EDT [facility] Comment: Ascitic fluid Reference range unavailable. Clinical correlation required. This Fluid Total Protein assay was developed and its performance characteristics determined by [facility]. ??It has not been cleared or approved by the [place] Food and Drug Administration. Fluid ASCITIC FLUID / Unknown 01/25/2024 11:02 EDT 01/25/2024 12:08 EDT Hugo Vergara MD PhD GEN LAB UNIT CO LLECT ORDERABLES Performing Organization Address City/[facility]/ZIP Co de Phone Number [facility] [address] [place] [address] documented in this encounter Visit Diagnoses Diagnosis Other ascites Malignant neoplasm of female breast, unspecified estrogen receptor status, unspecified laterality, unspecified site of breast (HCC-CMS) [C50.919] Metastatic malignant neoplasm, unspecified site (HCC-CMS) [C79.9] documented in this encounter Care Teams Helminthologist Relationship Specialty Start Date End Date Linda Blancas MD [address] [place] [address] 30 [place] [address] PCP - General 01/06/11 Adolfo Carreno MD [address] [place] [address], [facility] [address] [place] [phone] General Surgery 04/26/19 documented as of this encounter
--- OUTSIDE RECORDS SUMMARY | 2024-03-20 14:34 | XMS_ITS | Encounter Summary ---
Author Organization [facility] Address [address] [place] [address] Care Team Providers Care Lace Weaver Name Role Phone Linda Blancas MD Primary Care Provider [phone] Adolfo Carreno MD Unavailable [phone] Reason for Visit * Reason Onset Date Comments Appointment Related 01/23/2024 Encounter Details Date Type Department Care Team (Late st Contact Info) Description 01/23/2024 Telephone [facility] Center Hematology & Oncology - [facility] [address] [place], [place] [phone] Alisson Carreon MD 111 [facility], [address] [place] [address] Appointment Related Social History Tobacco Use Types Packs/Day Years Used Date Smoking Tobacco: Never Passive Smoke Exposure: Never Smokeless Tobacco: Never Alcohol Use Standard Drinks/Week Comments Not Currently 1 (1 standard drink = 0.6 oz pur e alcohol) [facility] Utilities Answer Date Recorded In the past 12 months has [employer] electric, gas, oil, or water company [...] any time in the past 12 [facility] were you homeless or living in a long-term (including now)? No 01/10/2024 Interpersonal Safety Answer [...] Notes * Telephone Encounter - Mary JaneBella - 01/23/2024 1635 EDT Pt woul dliek infusion appts on one day, explained to pt it was not possible for this cycle, pt is scheduled for pv on Tuesday as it was only avaialble slot nd infusion was ordered for Tuesday and could not be moved tat many days. Pt stated she was restarting tx after being off it. Pt requested Tuesdays for infusions. Creping Machine Operator Helper let pt kow they would ry to move it but there was a good chance they would still end up with 2 days for this cycles of appts but would try to get them on one day forward. documented in this encounter Plan of Treatment Upcoming Encounters Date Type Department Care Team (Late st Contact Info) Description 04/02/2024 10:30 EDT Appointment [facility] Interventional Radiology Unit [address] [place] [address] [phone] 04/02/2024 15:15 EDT Office Visit [facility] Surgical Oncology - [address] [phone] Adolfo Carreno MD [address] [place] [address] 2 [place] [phone] 04/05/2024 9:30 EDT Telemedicine [facility] Palliative Care Services [address] [place] [address] [phone] Chichi Woods MD [address] [place] [address], [address] [phone] 04/11/2024 15:00 EDT Telemedicine [facility] Hematology & Oncology - [address] [phone] Alisson Carreon MD [address] [place] [address] 2 [place] [phone] 04/13/2024 13:30 EDT Appointment [facility] Hematology & Oncology - [address] [phone] 04/13/2024 14:00 EDT Appointment [facility] Hematology & Oncology - [address] [phone] 04/16/2024 10:00 EST Telemedicine [facility] Palliative Care Services [address] [place] [address] [phone] Chichi Woods MD [address] [place] [address], [address] [phone] 04/24/2024 9:00 EST Appointment [facility] Radiology CT Outpatient - [address] [id number] 04/24/2024 11:00 EST Appointment [facility] Breast Imaging - [facility] S [address] 779791 04/27/2024 12:00 EST Appointment [facility] Hematology & Oncology - [address] [phone] 05/02/2024 15:00 EST Telemedicine [facility] Hematology & Oncology - [address] [phone] Alisson Carreon MD [address] [place] [address], [address] [place] [phone] 05/04/2024 10:15 EST Ancillary Procedure [facility] Cardiology - [address] [place], [place] [phone] 05/04/2024 11:30 EST Appointment [facility] Hematology & Oncology - [address] [address] 05/04/2024 12:00 EST Appointment [facility] Cancer Center Hematology & Oncology - [address] [address] 06/12/2024 13:00 EST [facility]ointment [facility] Radiology [facility] - [facility] [address] [place] [address] documented as of this encounter Visit Diagnoses Not on filedocumented in this encounter Care Teams Lace Weaver Relationship Specialty Start Date End Date Linda Blancas MD [facility] [address] [place] [address] PCP - General 01/06/11 Adolfo Carreno MD [address] [place] [address], [facility], [address] [place] [phone] General Surgery 04/26/19 documented as of this encounter
--- OUTSIDE RECORDS SUMMARY | 2024-03-20 14:34 | XMS_ITS | Encounter Summary ---
Author Organization [facility] Address [address] [place] [address] Care Team Providers Care Nuclear Weapons Specialist Name Role Phone Linda Blancas MD Primary Care Provider [phone] Adolfo Carreno MD Unavailable [phone] Reason for Visit * Reason Onset Date Comments Follow-up 01/23/2024 Encounter Details Date Type Department Care Team (Late st Contact Info) Description 01/23/2024 Telephone [facility] Cancer Center Hematology & Oncology - [facility] [address] [place], [place] [phone] Alisson Carreon MD 111 [facility], Level [address] [place] [address] Follow-up Social History Tobacco Use Types Packs/Day Years Used Date Smoking Tobacco: Never Passive Smoke Exposure: Never Smokeless Tobacco: Never Alcohol Use Standard Drinks/Week Comments Not Currently 1 (1 standard drink = 0.6 oz pur e alcohol) [facility] Utilities Answer Date Recorded In the past 12 months has [employer] electric, gas, oil, or water company threatened [...] Telephone Encounter - Yunior Thurman RN - 01/23/2024 1648 EDT Spoke with Sendy, who went to urgent care after falling down the stairs today. She mentions she gotbanged up pretty good and has a lot of abrasions that were bandaged up. She denies hitting her head. Patient not experiencing dizziness, headaches or change in eyesight. Patient knows to go to the EDif those symptoms occur. Patient has been utilizing oxygen w/ activity at home and seeing pulmonology and is overall doing okay since recent discharge. Patient still wondering what the plan is once she is signed-off from ID and Pulmonology. Patient has appointments with them on 01/24 and 02/06. Fiberglass Boat Parts Finisher will confer with Alina Blood on next steps. * Telephone Encounter - Pippa Black - 01/23/2024 1623 EDT Patient calling. Took a fall, down the stairs - seen in ER @ [facility]; phone # [phone] Recommending chest x-ray - needs order. Patient just started on oxygen. Seems to be overwhelmed with new diagnosis. Please call to discuss. documented in this encounter Plan of Treatment Upcoming Encounters Date Type Department Care Team (Late st Contact Info) Description 04/02/2024 10:30 EDT Appointment [facility] Interventional Radiology Unit [address] [place], [place] [phone] 04/02/2024 15:15 EDT Office Visit [facility] Surgical Oncology - [facility] [address] [place], [place] [phone] Adolfo Carreno MD 111 [facility], Level 2 [place] [phone] 04/05/2024 9:30 EDT Telemedicine [facility] Palliative Care Services [address] [place] [address] [phone] Chichi Woods MD [address] [place] [phone] 04/11/2024 15:00 EDT Telemedicine [facility] Hematology & Oncology - [address] [phone] Alisson Carreon MD [address] [place] [address], [address] [place] [phone] 04/13/2024 13:30 EDT Appointment [facility] Hematology & Oncology [address] [phone] 04/13/2024 14:00 EDT Appointment [facility] Hematology & Oncology [address] [phone] 04/16/2024 10:00 EST Telemedicine [facility] Palliative Care Services [address] [place] [address] [phone] Chichi Woods MD [address] [place] [phone] 04/24/2024 9:00 EST Appointment [facility] Radiology CT Outpatient - [address] [address] 04/24/2024 11:00 EST Appointment [facility] Breast Imaging - [address] [phone] 04/27/2024 12:00 EST Appointment [facility] Hematology & Oncology - [address] [phone] 05/02/2024 15:00 EST Telemedicine [facility] Hematology & Oncology - [address] [phone] Alisson Carreon MD [address] [place] [address] 2 [place] [phone] 05/04/2024 10:15 EST Ancillary Procedure [facility] Cardiology - [address] [place], [place] [phone] 05/04/2024 11:30 EST Appointment [facility] Hematology & Oncology - [address] [phone] 05/04/2024 12:00 EST Appointment [facility] Hematology & Oncology [address] 740211 06/12/2024 13:00 EST Appointment [facility] Radiology CT - [address] [phone] documented as of this encounter Visit Diagnoses Not on filedocumented in this encounter Care Teams Nuclear Weapons Specialist Relationship Specialty Start Date End Date Linda Blancas MD [facility] [address] [place] [address] PCP - General 01/06/11 Adolfo Carreno MD [address] [place] [address] 2 [place] [phone] General Surgery 04/26/19 documented as of this encounter
--- OUTSIDE RECORDS SUMMARY | 2024-03-20 14:34 | XMS_ITS | Encounter Summary ---
Author Organization [facility] Address [address] [place] [address] Care Team Providers Care Sponge Clipper Name Role Phone Linda Blancas MD Primary Care Provider [phone] Adolfo Carreno MD Unavailable [phone] Reason for Visit * Reason Onset Date Comments Coordination Of Care 01/23/2024 Encounter Details Date Type Department Care Team (Late st Contact Info) Description 01/23/2024 Telephone [facility] Cancer Center Hematology & Oncology - [facility] [address] [place] [address] Nadeen Blood, PANitaC 111 [facility], Level 2 [place] [address] Coordination Of Care Social History Tobacco Use Types Packs/Day Years Used Date Smoking Tobacco: Never Passive Smoke Exposure: Never Smokeless Tobacco: Never Alcohol Use Standard Drinks/Week Comments Not Currently 1 (1 standard drink = 0.6 oz pur e alcohol) [facility] Utilities Answer Date Recorded In the past 12 months has [employer] electric, gas, oil, or water company threatened [...] any time in the past 12 m [facility], were you homeless or living [...] Encounter - Yunior Thurman RN - 01/23/2024 5115 EDT LVM for patient about communication between ID and Pulm and her treatment plan moving forward. Shift Production Supervisor is unaware if the current plan has changed as patient was hospitalized from 01/07-01/18, but has Nura Blood know of patients questions/concerns and patient is scheduled for a FU with her on 01/30. * Telephone Encounter - Bambi Montgomery - 01/23/2024 1114 EDT Patient stated the infectious disease and pulmonary department need approval that patient can continue treatment after her hospital stay. Patient is asking for a call back to discuss further. Thank You documented in this encounter Plan of Treatment Upcoming Encounters Date Type Department Care Team (Late st Contact Info) Description 04/02/2024 10:30 EDT Appointment [facility] Interventional Radiology Unit [address] [place] [address] 025051 04/02/2024 15:15 EDT Office Visit [facility] Surgical Oncology - [address] 622361 Adolfo Carreno MD 111 [facility], Level 2 [place] [phone] 04/05/2024 9:30 EDT Telemedicine [facility] - [facility] Palliative Care Services [address], [place] [phone] Chichi Woods MD 111 [facility], [address] [phone] 04/11/2024 15:00 EDT Telemedicine [facility] Hematology & Oncology - Main [address] 596361 Alisson Carreon MD [address] [place] [address] 2 [place] [phone] 04/13/2024 13:30 EDT Appointment [facility] Hematology & Oncology - [address] [phone] 04/13/2024 14:00 EDT Appointment [facility] Hematology & Oncology - [address] 885481 04/16/2024 10:00 EST Telemedicine [facility] - [facility] Palliative Care Services [address] [place] [address] 308451 Chichi Woods MD [address] [place] [phone] 04/24/2024 9:00 EST Appointment [facility] Radiology CT Outpatient - [address] [id number] 04/24/2024 11:00 EST Appointment [facility] Breast Imaging - [facility] S [address] [phone] 04/27/2024 12:00 EST Appointment [facility] Hematology & Oncology - [address] 838091 05/02/2024 15:00 EST Telemedicine [facility] Hematology & Oncology - [address] 902441 Alissno Carreon MD [address] [place] [address], [facility] 2 [place] [phone] 05/04/2024 10:15 EST Ancillary Procedure [facility] Cardiology - [address] [place], [place] [phone] 05/04/2024 11:30 EST Appointment [facility] [place] Hematology & Oncology [address] [address] 05/04/2024 12:00 EST Appointment [facility] Hematology & Oncology [address] [address] 06/12/2024 13:00 EST Appointment [facility] Radiology CT - [address] [address] documented as of this encounter Visit Diagnoses Not on filedocumented in this encounter Care Teams Sponge Clipper Relationship Specialty Start Date End Date Linda Blancas MD [facility] [address] [place] [address] PCP - General 01/06/11 Adolfo Carreno MD [address] [place] [address], Level 2 [place] [address] General Surgery 04/26/19 documented as of this encounter
--- OUTSIDE RECORDS SUMMARY | 2024-03-20 14:34 | XMS_ITS | Encounter Summary ---
Author Organization [facility] Address [address] [place] [address] Care Team Providers Care Ceo & Board Director Name Role Phone Linda Blancas MD Primary Care Provider [phone] Adolfo Carreno MD Unavailable [phone] Encounter Details Date Type Department Care Team (Late st Contact Info) Description 01/24/2024 Orders Only [facility] Cancer Center Hematology & Oncology - [address] 154451 Lois Bautista RN Social History Tobacco Use Types Packs/Day Years Used Date Smoking Tobacco: Never Passive Smoke Exposure: Never Smokeless Tobacco: Never Alcohol Use Standard Drinks/Week Comments Not Currently 1 (1 standard drink = 0.6 oz pur e alcohol) [facility] Utilities Answer Date Recorded In [...] as of this encounter Progress Notes * Lois Bautista RN - 01/24/2024 2089 EDT C6D1 plan date changed to 02/27. documented in this encounter Plan of Treatment Upcoming Encounters Date Type Department Care Team (Late st Contact Info) Description 04/02/2024 10:30 EDT Appointment [facility] Interventional Radiology Unit [address] [place] [address] [phone] 04/02/2024 15:15 EDT Office Visit [facility] Surgical Oncology - [address] 967031 Adolfo Carreno MD [address] [place] [address] [phone] 04/05/2024 9:30 EDT Telemedicine [facility] Palliative Care Services [address] [place] [address] [phone] Chichi Woods MD [address] [place] [address] [phone] 04/11/2024 15:[address] [facility] Hematology & Oncology - [address] 035841 Alisson Carreon MD [address] [place] [phone] 04/13/2024 13:[address] [facility] Hematology & Oncology [address] 177771 04/13/2024 14:[address] [facility] Hematology & Oncology [address] 965961 04/16/2024 10:00 EST Telemedicine [facility] Palliative Care Services [address] [place] [address] 780851 Chichi Woods MD [address] [place] [address] [phone] 04/24/2024 9:00 EST Appointment [facility] Radiology CT Outpatient - [address] [id number] 04/24/2024 11:00 EST Appointment [facility] Breast Imaging - [facility] [place] 1 [place], [place] 511761 04/27/2024 12:[address] [facility] Hematology & Oncology - [address] 373001 05/02/2024 15:[address] [facility] Hematology & Oncology [address] 363461 Alisson Carreon MD [address] [place] [address], Level 2 [place] [phone] 05/04/2024 10:15 EST Ancillary Procedure [facility] Cardiology - [place] [place] [address] 05/04/2024 11:[address] [facility] Hematology & Oncology [address] 928531 05/04/2024 12:[address] [facility] Hematology & Oncology [address] 887741 06/12/2024 13:00 EST Appointment [facility] Radiology CT - [address] [phone] documented as of this encounter Visit Diagnoses Not on filedocumented in this encounter Care Teams Ceo & Board Director Relationship Specialty Start Date End Date Linda Blancas MD [facility] [address] [place] [address] PCP - General 01/06/11 Adolfo Carreno MD 111 [facility], Level 2 [place] [phone] General Surgery 04/26/19 documented as of this encounter
--- OUTSIDE RECORDS SUMMARY | 2024-03-20 14:34 | XMS_ITS | Encounter Summary ---
Author Organization [facility] Address [address] [place] [address] Care Team Providers Care Core Inspector Name Role Phone Linda Blancas MD Primary Care Provider [phone] Adolfo Carreno MD Unavailable [phone] Reason for Visit * Reason Onset Date Comments Other 01/23/2024 Encounter Details Date Type Department Care Team (Late st Contact Info) Description 01/23/2024 Telephone [facility] Infectious Disease - [address] [phone] Errol Ferrell MD [address] [place] [address], Level [address] [place] [address] Other Social History Tobacco Use Types Packs/Day Years Used Date Smoking Tobacco: Never Passive Smoke Exposure: Never Smokeless Tobacco: Never Alcohol Use Standard Drinks/Week Comments Not Currently 1 (1 standard drink = 0.6 oz pur e alcohol) [facility] Utilities Answer Date Recorded In the past 12 months has [employer] electric, gas, oil, or water company threatened [...] time in the past 12 m [facility], were you homeless or living in a [...] encounter Miscellaneous Notes * Telephone Encounter - Ray, Jazmyne, RN - 01/24/[address] Ferrell, originally he thought since she will have been on therapy for about 3 weeks which is generally the course of Rx - if she's doing OK from a respiratory standpoint - may be OK to forge ahead with chemo. However after reviewing pulmonary's follow up note, Dr. Ferrell explained: please see pulmonary followup note from 01/24 - I agree with their assessment - initial concern was with the potential for chemotherapy induced pneumoni LM for the patient with this information and sent her a [employer] message. Also encouraged her to keep her 02/07/[address] Ferrell. Forward message to Nadeen EATON, and Dr. Carreon. SANDHYA AGUILAR RN * Telephone Encounter - Estephanie Kwan - 01/23/2024 1127 EDT Patient states that she needs ID clearance to begin treatment for cancer on 01/31/24. Would like a call back at [phone]. documented in this encounter Plan of Treatment Upcoming Encounters Date Type Department Care Team (Late st Contact Info) Description 04/02/2024 10:30 EDT Appointment [facility] Interventional Radiology Unit [address] [place] [address] 04/02/2024 15:15 EDT Office Visit [facility] Surgical Oncology - [facility] [address] [place], [place] 507101 Adolfo Carreno MD 111 [facility], [facility], Level [address] [place] [phone] 04/05/2024 9:30 EDT Telemedicine [facility] - [facility] Palliative Care Services [address] [place] [address] [phone] Chichi Woods MD [address] [place] [address] [address] [place] [phone] 04/11/2024 15:00 EDT Telemedicine [facility] Hematology & Oncology - [address] 034661 Alisson Carreon MD [address] [place] [address] 2 [place] [phone] 04/13/2024 13:30 EDT Appointment [facility] Hematology & Oncology [address] [phone] 04/13/2024 14:00 EDT Appointment [facility] Hematology & Oncology [address] 750021 04/16/2024 10:00 EST Telemedicine [facility] - [facility] Palliative Care Services [address] [place] [address] 048721 Chichi Woods MD [address] [place] [phone] 04/24/2024 9:00 EST Appointment [facility] Radiology CT Outpatient - [address] [id number] 04/24/2024 11:00 EST Appointment [facility] Breast Imaging - [address] 562911 04/27/2024 12:00 EST Appointment [facility] Hematology & Oncology - [address] 724411 05/02/2024 15:00 EST Telemedicine [facility] Hematology & Oncology - [address] 100551 Alisson Carreon MD 111 [facility] 2 [place] [phone] 05/04/2024 10:15 EST Ancillary Procedure [facility] Cardiology - [address] [place] [address] 05/04/2024 11:30 EST Appointment [facility] Hematology & Oncology - [address] 567941 05/04/2024 12:00 EST Appointment [facility] Hematology & Oncology [address] 172831 06/12/2024 13:00 EST Appointment [facility] Radiology CT - [address] 598161 documented as of this encounter Visit Diagnoses Not on filedocumented in this encounter Care Teams Core Inspector Relationship Specialty Start Date End Date Linda Blancas MD [facility] [address] [place] [address] PCP - General 01/06/11 Adolfo Carreno MD [address] [place] [address] 2 [place] [phone] General Surgery 04/26/19 documented as of this encounter
--- OUTSIDE RECORDS SUMMARY | 2024-03-20 14:34 | XMS_ITS | Encounter Summary ---
Author Organization [facility] Address [address] [place] [address] Care Team Providers Care Shift Supervisor Film Processing Name Role Phone Linda Blancas MD Primary Care Provider [phone] Adolfo Carreno MD Unavailable [phone] Reason for Visit * Reason Onset Date Comments Appointment Related 01/24/2024 Encounter Details Date Type Department Care Team (Late st Contact Info) Description 01/24/2024 Telephone [facility] Cancer Center Hematology & Oncology - [facility] [address] [place], [place] [phone] Alisson Carreon MD 111 [facility], Level [address] [place] [address] Appointment Related Social History Tobacco Use Types Packs/Day Years Used Date Smoking Tobacco: Never Passive Smoke Exposure: Never Smokeless Tobacco: Never Alcohol Use Standard Drinks/Week Comments Not Currently 1 (1 standard drink = 0.6 oz pur e alcohol) [facility] Utilities Answer Date Recorded In the past 12 months has [employer] electric, gas, oil, or water company threatened [...] * Telephone Encounter - Bella Hinton - 01/24/2024 1224 EDT Spoke to pt to inform of tx moving to Tuesdays not being possible for the upcoming cycle but it hasbeen made to work for the next cycle. Apologized to pt for very early start on d1c6 explained that pv was the only opening in the schedule but following cycle had better start time and file had been noted for midmorning starts whenever possible. documented in this encounter Plan of Treatment Upcoming Encounters Date Type Department Care Team (Late st Contact Info) Description 04/02/2024 10:30 EDT Appointment [facility] Interventional Radiology Unit [address] [place] [address] 136551 04/02/2024 15:15 EDT Office Visit [facility] Surgical Oncology - [address] [phone] Adolfo Carreno MD [address] [place] [address], [facility] 2 [place] [phone] 04/05/2024 9:30 EDT Telemedicine [facility] - [facility] Palliative Care Services [address] [place], [place] 116131 Chichi Woods MD [address] [place] [phone] 04/11/2024 15:00 EDT Telemedicine [facility] Hematology & Oncology - [address] [phone] Alisson Carreon MD [address] [place] [address], [facility] 2 [place] [phone] 04/13/2024 13:30 EDT Appointment [facility] Hematology & Oncology - [address] 920901 04/13/2024 14:00 EDT Appointment [facility] Hematology & Oncology [address] [address] 04/16/2024 10:00 EST Telemedicine [facility] - [facility] Palliative Care Services [address] [place] [address] 835661 Chichi Woods MD [address] [place] [address], [address] [phone] 04/24/2024 9:00 EST Appointment [facility] Radiology CT Outpatient - [address] [id number] 04/24/2024 11:00 EST Appointment [facility] Breast Imaging - [facility] S [place] 1 [place], [place] 306451 04/27/2024 12:00 EST Appointment [facility] Hematology & Oncology [address] 688591 05/02/2024 15:00 EST Telemedicine [facility] Hematology & Oncology [address] 235091 Alisson Carreon MD [address] [place] [address], Level [address] [place] [phone] 05/04/2024 10:15 EST Ancillary Procedure [facility] Cardiology [place] [address] 05/04/2024 11:30 EST Appointment [facility] Hematology & Oncology [address] 149891 05/04/2024 12:00 EST Appointment [facility] Hematology & Oncology [address] [address] 06/12/2024 13:00 [facility] Radiology CT - [facility] [address] [place], [place] 806191 documented as of this encounter Visit Diagnoses Not on filedocumented in this encounter Care Teams Shift Supervisor Film Processing Relationship Specialty Start Date End Date Linda Blancas MD [facility] [address] [place] [address] PCP - General 01/06/11 Adolfo Carreno MD 111 [facility], [facility], Level [address] [place] [address] General Surgery 04/26/19 documented as of this encounter
--- OUTSIDE RECORDS SUMMARY | 2024-03-20 14:34 | XMS_ITS | Encounter Summary ---
Author Organization [facility] Address [address] [place] [address] Care Team Providers Care Lime Supervisor Name Role Phone Linda Blancas MD Primary Care Provider [phone] Adolfo Carreno MD Unavailable [phone] Reason for Referral * Cardiology (Routine/Next Available) - Receiving Office to Obtain Authorization Specialty Diagnoses / Procedures [facility] Referred To Contact Diagnoses Malignant neoplasm of right female breast, unspecified estrogen receptor status, unspecified site of breast (HCC-CMS) Abnormal electrocardiogram (ECG) (EKG) Procedures TRANSTHORACIC ECHO (TTE) LIMITED Alisson Carreon MD 111 [facility] 2 [place] [address] [facility] Referral ID Status Reason Start Date Expiration Date Visits Requested Visits Authorized [id number] Receiving Office to Obtain Authorization 01/24/2024 1 1 Encounter Details Date Type Department Care Team (Late st Contact Info) Description 01/24/[address] [facility] Cancer Center Hematology & Oncology - [facility] [address] [place], [place] [phone] Marian Rodarte, SHELLEY [address] [place] [address] Malignant neoplasm of right female breast, unspecified estrogen receptor status, unspecified site of breast (HCC-CMS) (Primary Dx); Abnormal electrocardiogram (ECG) (EKG) Social History Tobacco Use Types Packs/Day Years Used Date Smoking Tobacco: Never Passive Smoke Exposure: Never Smokeless Tobacco: Never Alcohol Use Standard Drinks/Week Comments Not Currently 1 (1 standard drink = 0.6 oz pur e alcohol) [facility] Utilities Answer Date Recorded In the past [...] were you homeless or living in a [place] facility (including now)? No 01/10/2024 Interpersonal Safety Answer [...] of this encounter Progress Notes * Marian Rodarte, RN - 01/24/2024 1158 EDT ECHO order placed. Pt getting q3 month echo during treatment. documented in this encounter Plan of Treatment Upcoming Encounters Date Type Department Care Team (Late st Contact Info) Description 04/02/2024 10:30 EDT Appointment [facility] Interventional Radiology Unit [address] [place] [address] 237671 04/02/2024 15:15 EDT Office Visit [facility] Surgical Oncology - [facility] [address] [place], [place] [phone] Adolfo Carreno MD 111 [facility], Level 2 [place] [phone] 04/05/2024 9:30 EDT Telemedicine [facility] - [facility] Palliative Care Services [address] [place], [place] [phone] Chichi Woods MD 111 [facility], [address] [phone] 04/11/2024 15:00 EDT Telemedicine [facility] Hematology & Oncology - [address] 876721 Alisson Carreon MD [address] [place] [address], [facility] 2 [place] [phone] 04/13/2024 13:30 EDT Appointment [facility] Hematology & Oncology - [address] 233861 04/13/2024 14:00 EDT Appointment [facility] Hematology & Oncology - [address] 207341 04/16/2024 10:00 EST Telemedicine [facility] - [facility] Palliative Care Services [address] [place] [address] [phone] Chichi Woods MD [address] [place] [address], [address] [phone] 04/24/2024 9:00 EST Appointment [facility] Radiology CT Outpatient - [address] 479061 04/24/2024 11:00 EST Appointment [facility] Breast Imaging - [facility] [address] 961211 04/27/2024 12:00 EST Appointment [facility] Hematology & Oncology - [address] 870021 05/02/2024 15:00 EST Telemedicine [facility] Hematology & Oncology - [address] 382251 Alisson Carreon MD [address] [place] [address], [facility] 2 [place] [phone] 05/04/2024 10:15 EST Ancillary Procedure [facility] Cardiology - [place] [address] 05/04/2024 11:30 EST Appointment [facility] Hematology & Oncology [address] [address] 05/04/2024 12:00 EST Appointment [facility] Hematology & Oncology [address] [address] 06/12/2024 13:00 EST Appointment [facility] Radiology CT - [address] [address] Scheduled Orders Name Type Priority Associated Diagnoses Orde r Schedule TRANSTHORACIC ECHO (TTE) LIMITED Echocardiography Routine Malignant neoplasm of right female breast, unspecified estrogen receptor status, unspecified site of breast (HCC-CMS) Abnormal electrocardiogram (ECG) (EKG) Expected: 01/24/2024, Expires: 01/23/2026 documented as of this encounter Visit Diagnoses Diagnosis Malignant neoplasm of right female breast, unspecified estrogen receptor status, unspecified site of breast (HCC-CMS)- Primary Abnormal electrocardiogram (ECG) (EKG) documented in this encounter Care Teams Lime Supervisor Relationship Specialty Start Date End Date Linda Blancas MD [address] [place] [address] 30 [place] [address] PCP - General 01/06/11 Adolfo Carreno MD [address] [place] [address], Level 2 [place] [address] General Surgery 04/26/19 documented as of this encounter
--- OUTSIDE RECORDS SUMMARY | 2024-03-20 14:35 | XMS_ITS | Encounter Summary ---
Author Organization [facility] Address [address] [place] [address] Care Team Providers Care Nanoscience Technician Name Role Phone Linda Blancas MD Primary Care Provider [phone] Adolfo Carreno MD Unavailable [phone] Reason for Visit * Auth/Cert (Routine) Specialty Diagnoses / Procedures Referred By Contdayanna t Referred To Contact Diagnoses Shortness of breath Anemia, unspecified type Acute hypoxic respiratory failure ([facility]) Referral ID Status Reason Start Date Expiration Date Visits Re quested Visits Authorized [id number] 1 1 Encounter Details Date Type Department Care Team (Late st Contact Info) Description 01/18/2024 12:45 EDT Ancillary Procedure [facility] Vascular Surgery - Main [place] [address] [place], [place] [id number] Social History Tobacco Use Types Packs/Day Years Used Date Smoking Tobacco: Never Passive Smoke Exposure: Never Smokeless Tobacco: Never Alcohol Use Standard Drinks/Week Comments Not Currently 1 (1 standard drink = 0.6 oz pur e alcohol) [facility] Utilities Answer Date Recorded In the past 12 months has [employer], gas, oil, or water company threatened [...] Description 04/02/2024 10:30 EDT Appointment [facility] Interventional Radiology Unit [address] [place] [address] [phone] 04/02/2024 15:15 EDT Office Visit [facility] Surgical Oncology - [address] [phone] Adolfo Carreno MD [address] [place] [address] [phone] 04/05/2024 9:30 EDT Telemedicine [facility] Palliative Care Services [address] [place] [address] [phone] Chichi Woods MD [address] [place] [address] [phone] 04/11/2024 15:00 EDT Telemedicine [facility] Hematology & Oncology - [address] [phone] Alisson Carreon MD [address] [place] [address] [phone] 04/13/2024 13:30 EDT Appointment [facility] Hematology & Oncology [address] [phone] 04/13/2024 14:00 EDT Appointment [facility] Hematology & Oncology [address] [phone] 04/16/2024 10:00 EST Telemedicine [facility] Palliative Care Services [address] [place] [address] [phone] Chichi Woods MD [address] [place] [address] [phone] 04/24/2024 9:00 EST Appointment [facility] Radiology CT Outpatient - [address] [address] 04/24/2024 11:00 EST Appointment [facility] Breast Imaging - [facility] [address] [place] [address] [place] [address] 04/27/2024 12:00 EST Appointment [facility] Hematology & Oncology - [address] [address] 05/02/2024 15:00 EST Telemedicine [facility] Hematology & Oncology [address] 668101 Alisson Carreon MD [address] [place] [address], Level 2 [place] [phone] 05/04/2024 10:15 EST Ancillary Procedure [facility] Cardiology - [address] [place] [address] 05/04/2024 11:30 EST Appointment [facility] Hematology & Oncology [address] [address] 05/04/2024 12:00 EST Appointment [facility] Hematology & Oncology [address] [address] 06/12/2024 13:00 EST Appointment [facility] Radiology CT - [address] [phone] documented as of this encounter Procedures Procedure Name Priority Date/Time Associated Diagnosis Comments US LOWER VENOUS DUPLEX (DVT) RIGHT Routine 01/18/2024 13:37 EDT documented in this encounter Results * US LOWER VENOUS DUPLEX (DVT) RIGHT [...] Medical History Anticoagulation therapy. Kaylah Vieira MD [facility] VASCULAR ORD ERABLES documented in this encounter Visit Diagnoses Not on filedocumented in this encounter Care Teams Nanoscience Technician Relationship Specialty Start Date End Date Linda Blancas MD [facility] [address] [place] [address] PCP - General 01/06/11 Adolfo Carreno MD [address] [place] [address], Level 2 [place] [phone] General Surgery 04/26/19 documented as of this encounter
--- OUTSIDE RECORDS SUMMARY | 2024-03-20 14:35 | XMS_ITS | Encounter Summary ---
Author Organization [facility] Address [address] [place] [address] Care Team Providers Care Internet Security Specialist Name Role Phone Linda Blancas MD Primary Care Provider [phone] Adolfo Carreno MD Unavailable [phone] Reason for Visit * Reason Onset Date Comments Appointment Related 01/16/2024 Encounter Details Date Type Department Care Team (Late st Contact Info) Description 01/16/2024 Telephone [facility] Palliative Care Services [address] [place], [place] [address] Pippa White RN Appointment Related Social History Tobacco Use Types Packs/Day Years Used Date Smoking Tobacco: Never Passive Smoke Exposure: Never Smokeless Tobacco: Never Alcohol Use Standard Drinks/Week Comments Not Currently 1 (1 standard drink = 0.6 oz pur e alcohol) [facility] Utilities Answer Date Recorded In the past 12 months has e [employer], gas, oil, or water [employer] threatened to shut off services in your [...] were you homeless or living in a intermediate (including now)? No 01/10/2024 Interpersonal Safety Answer [...] Miscellaneous Notes * Telephone Encounter - Pippa White RN - 01/16/2024 0904 EDT Second referral from inpatient [facility] : Auth Provider: JENIFER AGUILAR Provider: Diagnosis: Malignant neoplasm of female breast, unspecified estrogen receptor status, unspecified laterality, unspecified site of breast (HCC-CMS) Primary malignant neoplasm of breast with metastasis (HCC-CMS) Encounter for palliative care Department: Order Expected Completion Date: 02/12/2024 Sched Instruct: Comment: Further [facility] discussions Initial referral from Dr. Augustina Colin, see my 11/21/23 chart note, patient did not call back to schedule at that time. 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 -Call to Nitish Nesbitt to discuss palliative care (PC) in [place] patient is inpatient now with clustered care to allow for rest on [facility]. Snap shot relays that we have permission to talk to Nitish-no ACP docs in [facility]. -Nitish relays concern that palliative may be needed when Sendy is nearing the end of her life and he reports they have not been told that is the case although he sees declines. He wants to support Sendy how ever she chooses. . -Discussed that no other care would stop since the palliative provider visits are consultative and alongside their current care. -Discussed that palliative care is specialty care for people living with a serious illness. -Discussed that it is personalized care that focuses on managing symptoms and aligning healthcare with an individual's values all in an effort to help patient's live well. -Palliative care can help: -patients with symptoms related to their serious illness -patients and families navigating decisions about treatment options -patients planning for the future of their health (Advance Care Planning) We did not discuss the differences or similarities in palliative and hospice care. Nitish said he would like more information on how to support Sendy and he had not heard about the palliative referral, and just wants to get her home. They live ~1[place]5 hrs away from [place] and have internet at home but not versed at telehealth visits. Wish for in-person visit although we discussed the option for a conversation with the Help Desk to do a test run/option for telehealth since that could be more convenient. -Discussed that the schedulers will know with accuracy, but that for in-person visits Dr. Woods isbooking as far out as March, but Nona Desouza NP has telehealth visits sooner at the end of January or first week in February. -Nitish plans to call the [facility] nurses station and ask for inpatient palliative care team now, but asked that the outpatient palliative schedulers not call to schedule until the week of 01/23/24 since they aren't sure of the big picture right now. -Palliative care office contact details shared including: Office phone Schedulers -Clarified that for urgent symptoms or needs, a patient should continue to call either their PCP (or oncology office, if applicable). -Discussed that we communicate closely with their other medical offices to coordinate their care chris consultative model, not as part of a program of home care giving although we may make suggestionsand connect them with potential resources. -Discussed that the frequency of palliative visits can be discussed at their new patient visit based on their needs and schedules. -All questions answered. -For schedulers: Onc clinic in-person visit to start with Dr. Chuck White, [place] [facility] Palliative Care Services The [address] [phone] [email or web address] Office days: Mondays, Tuesdays, and documented in this encounter Plan of Treatment Upcoming Encounters Date Type Department Care Team (Late st Contact Info) Description 04/02/2024 10:30 EDT Appointment [facility] Interventional Radiology Unit [address] [place] [address] 04/02/2024 15:15 EDT Office Visit [facility] Surgical Oncology - [address] [address] Adolfo Carreno MD [address] [facility] Level 2 [place] [phone] 04/05/2024 9:30 EDT Telemedicine [facility] Palliative Care Services [address] [place] [address] [phone] Chichi Woods MD [address] [place] [address] [phone] 04/11/2024 15:00 EDT Telemedicine [facility] Hematology & Oncology - [address] 411151 Alisson Carreon MD [address] [place] [address] 2 [place] [phone] 04/13/2024 13:30 EDT Appointment [facility] Hematology & Oncology - [address] [address] 04/13/2024 14:00 EDT Appointment [facility] Hematology & Oncology - [address] [address] 04/16/2024 10:00 EST Telemedicine [facility] Palliative Care Services [address] [place] [address] [phone] Chichi Woods MD [address] [place] [address] [phone] 04/24/2024 9:00 EST Appointment [facility] Radiology CT Outpatient - [address] 032951 04/24/2024 11:00 EST Appointment [facility] Breast Imaging - [address] [address] 04/27/2024 12:00 EST Appointment [facility] Hematology & Oncology - [address] [phone] 05/02/2024 15:00 EST Telemedicine [facility] Hematology & Oncology [address] [phone] Alisson Carreon MD [address] [place] [address] 2 [place] [phone] 05/04/2024 10:15 EST Ancillary Procedure [facility] Cardiology - [place] [address] [place] [address] 05/04/2024 11:30 EST Appointment [facility] Hematology & Oncology [address] [phone] 05/04/2024 12:00 EST Appointment [facility] Hematology & Oncology [address] [phone] 06/12/2024 13:00 EST Appointment [facility] Radiology CT - [address] 118471 documented as of this encounter Visit Diagnoses Not on filedocumented in this encounter Additional Health Concerns Infection Onset Date Last Indicated Resolved Time R/O COVID-19 01/16/2024 01/16/2024 01/16/2024 17:5 0 EDT documented as of this encounter Care Teams Internet Security Specialist Relationship Specialty Start Date End Date Linda Blancas MD [facility] [address] [place] [address] PCP - General 01/06/11 Adolfo Carreno MD [address] [place] [address] [phone] General Surgery 04/26/19 documented as of this encounter
--- OUTSIDE RECORDS SUMMARY | 2024-03-20 14:35 | XMS_ITS | Encounter Summary ---
Author Organization [facility] Address [address] [place] [address] Care Team Providers Care Boiler Coverer Name Role Phone Linda Blancas MD Primary Care Provider [phone] Adolfo Carreno MD Unavailable [phone] Reason for Visit * Reason Onset Date Comments Follow-up 01/17/2024 Called Blayne Poe bedside nurse to get update on patient status Encounter Details Date Type Department Care Team (Late st Contact Info) Description 01/17/2024 Telephone [facility] Cancer Center Hematology & Oncology - [facility] [address] [place] [address] Pérez Stevens RN Follow-up (Called Blayne Poe bedside nurse to get update on patient status) Social History Tobacco Use Types Packs/Day Years Used Date Smoking Tobacco: Never Passive Smoke Exposure: Never Smokeless Tobacco: Never Alcohol Use Standard Drinks/Week Comments Not Currently 1 (1 standard drink = 0.6 oz pur e alcohol) [facility] Utilities Answer Date Recorded In the past 12 months has e [employer], gas, oil, or water [employer] threatened to shut off services in your [...] encounter Miscellaneous Notes * Telephone Encounter - Pérez Stevens RN - 01/17/2024 1653 EDT I spoke with baltazar nurse and she relayed that overall patient is doing well-she has a positive attitude and is engaged in her care and treatment. Noted that her para site was leaking a lot yesterdayand today belly is distended; plan for paracentesis tomorrow prior to discharge. Also met with palliative care today to discuss palliative vs hospice. If all goes well, pt expected to d/c to home dann rrow. * Telephone Encounter - Pérez Stevens RN - 01/17/20241651 EDT ----- Message from Alisson Carreon MD sent at 01/17/2024 15:25 EDT ----- Can you check up on her How is she doing? ----- Message ----- From: Mirian Segura Sent: 01/10/2024 8:34 EDT To: Alisson Carreon MD; Ana Laura Winn RN Good morning, I'm happy to. She is still inpatient. I wonder if a Palliative Care consult while inpatient would be a good idea or med psych visit? ----- Message ----- From: Alisson Carreon MD Sent: 01/06/2024 17:40 EDT To: Mirian Segura; Ana Laura Winn, [place], she has many complications from cancer and cancer treatments, just sent her to ER. Very depressed and tired of all this She transferred to me from [place], can you assess with her (after d/c if she will be admitted) if she would like your support? Palliative care? Maybe home care? documented in this encounter Plan of Treatment Upcoming Encounters Date Type Department Care Team (Late st Contact Info) Description 04/02/2024 10:30 EDT Appointment [facility] Interventional Radiology Unit [address] [place] [address] 04/02/2024 15:15 EDT Office Visit [facility] Surgical Oncology - [address] [phone] Adolfo Carreno MD [address] [place] [address] 2 [place] [phone] 04/05/2024 9:30 EDT Telemedicine [facility] Palliative Care Services [address] [place] [address] [phone] Chichi Woods MD [address] [place] [address] [phone] 04/11/2024 15:00 EDT Telemedicine [facility] Hematology & Oncology - [address] [address] Alisson Carreon MD [address] [place] [address] [phone] 04/13/2024 13:30 EDT Appointment [facility] Hematology & Oncology - [address] [phone] 04/13/2024 14:00 EDT Appointment [facility] Hematology & Oncology - [address] [address] 04/16/2024 10:00 EST Telemedicine [facility] Palliative Care Services [address] [place] [address] [phone] Chichi Woods MD [address] [place] [address] [phone] 04/24/2024 9:00 EST Appointment [facility] Radiology CT Outpatient - [address] [phone] 04/24/2024 11:00 EST Appointment [facility] Breast Imaging - [facility] [address] [place] [address] [place] [address] 04/27/2024 12:00 EST Appointment [facility] Hematology & Oncology - [address] [address] 05/02/2024 15:00 EST Telemedicine [facility] Hematology & Oncology - [address] [address] Alisson Carreon MD [address] [place] [address] [phone] 05/04/2024 10:15 EST Ancillary Procedure [facility] Cardiology - [address] [place] [address] 05/04/2024 11:30 EST Appointment [facility] Hematology & Oncology - [address] [address] 05/04/2024 12:00 EST Appointment [facility] Hematology & Oncology - [address] [address] 06/12/2024 13:00 EST Appointment [facility] Radiology CT - [address] [address] documented as of this encounter Visit Diagnoses Not on filedocumented in this encounter Care Teams Boiler Coverer Relationship Specialty Start Date End Date Linda Blancas MD [address] [place] [address] 30 [place] [address] PCP - General 01/06/11 Adolfo Carreno MD [address] [place] [address] [phone] General Surgery 04/26/19 documented as of this encounter
--- OUTSIDE RECORDS SUMMARY | 2024-03-20 14:35 | XMS_ITS | Encounter Summary ---
Author Organization [facility] Address [address] [place] [address] Care Team Providers Care Geology Scientist Name Role Phone Linda Blancas MD Primary Care Provider [phone] Adolfo Carreno MD Unavailable [phone] Encounter Details Date Type Department Care Team (Late st Contact Info) Description 01/18/2024 Orders Only [facility] Cancer Center Hematology & Oncology - [address] [phone] Alisson Carreon MD [address] [facility], Level 2 [place] [phone] Social History Tobacco Use Types Packs/Day Years Used Date Smoking Tobacco: Never Passive Smoke Exposure: Never Smokeless Tobacco: Never Alcohol Use Standard Drinks/Week Comments Not Currently 1 (1 standard drink = 0.6 oz pur e alcohol) [facility] Utilities Answer Date Recorded In the past 12 months has [employer], gas, oil, or water company threatened [...] any time in the past 12 m [facility], were you homeless or living in a [...] Appointment [facility] Interventional Radiology Unit [address] [place] [address] [phone] 04/02/2024 15:15 EDT Office Visit [facility] Surgical Oncology - [address] [phone] Adolfo Carreno MD [address] [place] [address] [phone] 04/05/2024 9:30 EDT Telemedicine [facility] Palliative Care Services [address] [place] [address] [phone] Chichi Woods MD [address] [place] [address] [phone] 04/11/2024 15:00 EDT Telemedicine [facility] Hematology & Oncology [address] 424011 Alisson Carreon MD [address] [place] [address] [phone] 04/13/2024 13:30 EDT Appointment [facility] Hematology & Oncology [address] [phone] 04/13/2024 14:00 EDT Appointment [facility] Hematology & Oncology [address] 115641 04/16/2024 10:00 EST Telemedicine [facility] Palliative Care Services [address] [place] [address] [phone] Chichi Woods MD [address] [place] [address] [phone] 04/24/2024 9:00 EST Appointment [facility] Radiology CT Outpatient - [address] [address] 04/24/2024 11:00 EST Appointment [facility] Breast Imaging - [facility] [address] [place] [address] [place], [place] 357381 04/27/2024 12:00 EST Appointment [facility] Hematology & Oncology - [address] [address] 05/02/2024 15:00 EST Telemedicine [facility] Hematology & Oncology [address] [phone] Alisson Carreon MD [address] [place] [address] [phone] 05/04/2024 10:15 EST Ancillary Procedure [facility] Cardiology - [place] [address] 05/04/2024 11:30 EST Appointment [facility] Hematology & Oncology - [address] [address] 05/04/2024 12:00 EST Appointment [facility] Hematology & Oncology [address] 316451 06/12/2024 13:00 EST Appointment [facility] Radiology CT - [address] [phone] documented as of this encounter Visit Diagnoses Not on filedocumented in this encounter Care Teams Geology Scientist Relationship Specialty Start Date End Date Linda Blancas MD [address] [place] [address] 30 [place] [address] PCP - General 01/06/11 Adolfo Carreno MD [address] [place] [address] 2 [place] [phone] General Surgery 04/26/19 documented as of this encounter
--- OUTSIDE RECORDS SUMMARY | 2024-03-20 14:35 | XMS_ITS | Encounter Summary ---
Author Organization [facility] Address [address] [place] [address] Care Team Providers Care Health And Safety Instructor Name Role Phone Linda Blancas MD Primary Care Provider [phone] Adolfo Carreno MD Unavailable [phone] Reason for Referral * Consult (Routine/Next Available) - Closed Specialty Diagnoses / Procedures Referred By Doug hearn Referred To Contact Palliative Care Diagnoses Malignant neoplasm of female breast, unspecified estrogen receptor status, unspecified laterality, unspecified site of breast ([facility]) [facility] [address] [place] [phone] [facility] Palliative Care [address] [place] [phone] Referral ID Status Reason Start Date Expiration Date V isits Requested Visits Authorized [id number] Closed Specialty Services Required 01/19/2024 1 1 Question Answer Advanced care planning: Yes Goals of Care: Yes End of Life: No Comments Patient interested in starting conversations about what her priorities are and making sure things are in place such as advanced directive. 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, unspecified laterality, 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[facility]) [facility] [address] [place] [phone] Linda Blancas MD [address] [place] [address] Referral ID Status Reason Start Date Expiration Date Visits Requested Visits Authorized [id number] New Request Continuity of Care 01/19/2024 1 1 Question Answer Reason for Request: Recent hospitalization for PJP pneumonia * Consult (Routine/Next Available) - Closed Specialty Diagnoses / Procedures Referred By Contac t Referred To Contact Breast Clinic / Breast Center Diagnoses Malignant neoplasm of female breast, unspecified estrogen receptor status, unspecified laterality, unspecified site of breast ([facility]) Metastatic malignant neoplasm, unspecified site ([facility]) [place] [address] [place] [address] Alisson Carreon MD [address] [place] [address] 2 [place] [address] Referral ID Status Reason Start Date Expiration Date V isits Requested Visits Authorized [id number] Closed Specialty Services Required 01/19/2024 1 1 Question Answer Please choose one of the following condition categories: Other Clinical Question Reason for Request: Follow-up recent hospitalization for PJP pneumonia. 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 describe specific scheduling needs if applicable): Before 02/02 before next chemo. Reason for Request: Follow-up for hospitalization for PJP pneumonia Expected Discharge Date (Inpatient Only): 01/19/2024 * Consult (Routine/Next Available) - Closed Specialty Diagnoses / Procedures Referred By Contact Referred To Contact Gastroenterology and Hepatology Diagnoses Other ascites [place] [address] [place] [address] Hugo Vergara MD PhD [address] [place] [phone] Referral ID Status Reason Start Date Expiration Date V isits Requested Visits Authorized [id number] Closed Specialty Services Required 01/19/2024 1 1 Question Answer Reason for Request: Follow-up for hospitalization and paracentesis needs * Consult (Routine/Next Available) - Receiving Office to Obtain Authorization Specialty Diagnoses / Procedures Referred By Contdayanna t Referred To Contact Pulmonary Disease Diagnoses 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 describe specific scheduling needs if applicable): PJP pneumonia Reason for Request: Follow-up from hospitalization for PJP pneumonia * Consult (Routine/Next Available) - Receiving Office to Obtain Authorization Specialty Diagnoses / Procedures Referred By Contac t Referred To Contact Diagnoses Malignant neoplasm of female breast, unspecified estrogen receptor status, unspecified laterality, unspecified site of breast (HCC-CMS) Primary malignant neoplasm of breast with metastasis (HCC-CMS) Encounter for palliative care Jackie Juan MD [address] [place] [phone] [facility] Palliative Care [address] [place] [address] Referral ID Status Reason Start Date Expiration Date Visits Requested Visits Authorized [id number] Receiving Office to Obtain Authorization Specialty Services Required 01/12/2024 1 1 Comments Further C discussions * Radiology Services (Routine/Next Available) - Authorization Not Required Specialty Diagnoses / Procedures Referred By Contac t Referred To Contact Diagnoses Other ascites Malignant neoplasm of female breast, unspecified estrogen receptor status, unspecified laterality, unspecified site of breast (HCC-CMS) Metastatic malignant neoplasm, unspecified site (HCC-CMS) Procedures IR PARACENTESIS-RADIOLOGY Jackie Juan MD [address] [place] [address] [facility] Referral ID Status Reason Start Date Expiration Date Visits Requested Visits Authorized [id number] Authorization Not Required 01/12/2024 2 2 * Radiology Services (Routine/Next Available) - Authorization Not Required Specialty Diagnoses / Procedures Referred By Contac t Referred To Contact Diagnoses Other ascites Procedures IR PARACENTESIS-RADIOLOGY Hugo Vergara MD PhD [address] [facility] Level [address] [place] [address] [facility] Referral ID Status Reason Start Date Expiration Date Visits Requested Visits Authorized [id number] Authorization Not Required 01/06/2024 1 1 Reason for Visit * Reason Comments Shortness of Breath Pt arrives with comp laint of worsening exertional shortness of breath for 1 month. Has been seen multiple times for similar. Has hx breast cancer with mets, including lungs. Currently on chemo therapy, last chemo 12/20/2023. * Auth/Cert (Routine) Specialty Diagnoses / Procedures Referred By Contac t Referred To Contact Diagnoses Shortness of breath Anemia, unspecified type Acute hypoxic respiratory failure (HCC-CMS) Referral ID Status Reason Start Date Expiration Date Visits Re quested Visits Authorized [id number] 1 1 Encounter Details Date Type Department Care Team (Late st Contact Info) Description 01/08/2024 15:40 EDT - 01/19/2024 16:19 EDT Hospital Encounter [facility] Hematology & Oncology Unit [address] [place] [phone] Micky Sebastian MD 111 [facility], Level [address] [place] [phone] Bambi Porter MD [address] [phone] Masha Russell MD [address] [phone] Silverio Porter MD [address] [phone] Shortness of breath (Primary Dx); Anemia, unspecified type; Other ascites; Acute hypoxic respiratory failure (HCC-CMS); Malignant neoplasm of female breast, unspecified estrogen receptor status, unspecified laterality, unspecified site of breast (HCC-CMS) [C50.919]; Metastatic malignant neoplasm, unspecified site (HCC-CMS) [C79.9]; Abnormal CT of the chest [R93.89]; Primary malignant neoplasm of breast with metastasis ([facility]); Encounter for palliative care; Malignant ascites; Ground glass opacity present on imaging of lung; Leukocytosis, unspecified type; 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, unspecified laterality, 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[facility]); Palliative care by specialist; Goals of care, counseling/discussio n; 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, 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[facility]); Malignant neoplasm of right female breast, unspecified estrogen receptor status, unspecified site of breast ([facility]) Discharge Disposition: Home or Self Care Social History Tobacco Use Types Packs/Day Years Used Date Smoking Tobacco: Never Passive Smoke Exposure: Never Smokeless Tobacco: Never Alcohol Use Standard Drinks/Week Comments Not Currently 1 (1 standard drink = 0.6 oz pur e alcohol) [facility] Utilities Answer Date Recorded In the past 12 months has th e [employer], gas, oil, or water [employer] threatened to shut off services in your [...] Record ed How often does anyone, inclu ding family, hit, punch or physically hurt you? [...] Sign Reading Time Taken Comments Blood Pressure 124/107 01/19/2024 0803 EDT Pulse 96 01/19/2024 0537 EDT Temperature 36.8 ??C (98.2 ??F) 01/19/2024 0803 EDT Respiratory Rate 16 01/19/2024 0803 EDT Oxygen Saturation 94% 01/19/2024 0803 EDT Inhaled Oxygen Concentration - - Weight 54.4 kg (120 lb) 01/09/2024 1618 EDT Height 154.9 cm (5' 1) 01/09/2024 1618 EDT Body Mass Index 22.67 01/09/2024 1618 EDT documented in this encounter Functional Status [...] 12/12/2023 documented as of this encounter Discharge Summaries * Kaylah Najera MD - 01/19/2024 0707 EDT MEDICAL ONCOLOGY DISCHARGE SUMMARY Primary Care Provider: Linda Blancas Attending Physician: No att. 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 ([facility]) 01/16/2024 Leukocytosis 01/13/2024 Ground glass opacity present on imaging of lung 01/12/2024 Mild malnutrition (HCC) ([facility]) 01/11/2024 Class: Present on Admission Acute hypoxic respiratory failure ([facility]) 01/08/2024 Anemia, unspecified type 01/08/2024 Metastatic malignant neoplasm ([facility]) 12/12/2023 Palliative care by specialist 10/03/[address] of the chest 01/09/2024 Resolved Hospital Problems No resolved problems to display. Transition of care: [facility] Transition of Care report automatically routed to PCP office on discharge.Additional handoff communication performed via: None, primary care provider not in system. Clinical Issues Needing Follow-up 1. Pertinent medication changes: -Started Atovaquone - Started prednisone taper - Started Dilaudid for pain 2. Recommended follow-up tests/procedures needed: - NEEDED PARACENTESIS 3. Anticoagulation on discharge: Yes - continuation of prior to admission therapy WITHOUT changes Indication(s): VTE prophylaxis Medication: DOAC apixaban 4. Changes to goals of care at time of discharge (if applicable): NONE Hospital Course: HD1: Sunshine Subramanian is a 63 y.o. female with a PMHx significant for metastatic ER+ breast cancer(mets to liver c/b portal HTN, lymphadenopathy, bony mets), UE thrombus and PE on apixaban who presented with dyspnea/hypoxia on 01/07 This was initially thought to be 2/2 trastuzumab induced pneumonitis. She underwent Bronchoscopy with BAL showing insignificant bx results but PJP on culture. All other BAL testing was negative. During her hospitalization prior to PJP Culture results her SOB was thought to be secondary to Enhertu Pneumonitis. Because of this she received prednisone daily followed by a taper to be continued in theoutpatient setting. Once the diagnosis was clearly PJP pneumonia, she was quickly started on atovaquone & ID was consulted and continued to follow for recommendations. While hospitalized she developed Thrush and was treated with nystatin swish and spit w/ resolution. Completion of course will be outpatient and meds sent. Pt required 3x paracentesis while hospitalized and had significant leakage after her latter two. Leakage was well controlled on discharge with Dermabond. Fluid tested negative for SBP. Lasix were increased to achieve a 5:2 ratio in efforts to reduce ascitic accumulation. Result was minimal and she developed a contraction alkalosis that resolved with diuretic holiday so lasix were reduced to her GROWTH HACKER dose prior to discharge. During her stay she had acute worsening of her baseline nightly muscle cramps. Electrolyte testing wnl. Didn't improve with iron infusion and only minimal improvement with diuretic holiday. We trailed dilaudid for pain and sleep with good effect so medication added to current regimen and zolpidem discontinued given pt expressed delirium. A few days prior to discharge she had a fever and significant elevation in her WBC overnight. Workup was initiated and 5 days of cefepime was given. All results were negative except for UTI but patient remained asx. Her fever never returned and hr WBC normalized prior to discharge. She also received a home oxygen evaluation while in the hospital which recommended 10 L Home O2 w/ Oxymizer on movement w/o O2 needed at rest. She was deemed medically stable for discharge on 01/18 with follow-up with PCP hepatology, oncology, infectious disease, pulmonology and Palliative Care. Prior to discharge her oncologist and campaign coordinator teams were contacted and transfer of care was received. Relevant Imaging/Procedures Performed: CT chest Bronchoscopy with BAL Paracentesis x 3 RLE duplex ultrasound CXR Results Pending at Discharge: Test results still pending from this admission Procedure Component Value Units Date/Time AFB Culture/Smear, Other [[id number]] Collected: 01/11/24 165 Lab Status: Preliminary result Specimen: BAL from Lung, left upper lobe Updated: 01/19/24 1323 Organism ID No acid-fast bacilli isolated AFB Smear No Acid Fast Bacilli Seen Nocardia Culture and Smear [[id number]] Collected: 01/11/24 165 Lab Status: Preliminary result Specimen: BAL from Lung, left upper lobe Updated: 01/19/24 0808 Organism ID No aerobic actinomycetes isolated Fungal Smear No Modified acid fast bacilli seen Fungus Culture/Smear ([facility], [facility], [facility]) [[id number]] Collected: 01/11/24 1650 Lab Status: Preliminary result Specimen: BAL from Lung, left upper lobe Updated: 01/19/24 0808 Organism ID Yeast Not Cryptococcus or Dimorphic Fungi Fungal Smear No Fungi Seen CA 27.29 [[id number]] Collected: 01/19/24 0608 Lab Status: In process Specimen: Blood, Venous Updated: 01/19/24 0612 Bacterial Culture, Blood [[id number]] Collected: 01/16/24627 Lab Status: In process Specimen: Blood, Venous Updated: 01/16/2435 Bacterial Culture, Blood [[id number]] Collected: 01/16/24627 Lab Status: In process Specimen: Blood, Venous Updated: 01/16/2435 Bacterial Culture, Blood [[id number]] Collected: 01/16/24 0546 Lab Status: In process Specimen: Blood, Central Line Updated: 01/16/24 0553 Upcoming Appointments Jan 31, 2024 9:15 (Arrive by 9:00) TRANSTHORACIC ECHO (TTE) LIMITED with [id number] - ECHO F [facility] Non-Invasive Cardiology - [facility] (--) [address] [facility] [address] Jan 31, 2024 10:30 (Arrive by 10:15) PORT ACCESS/FLUSH with SHORT STAY CHAIR 3, HEM/ONC INF [facility] Hematology & Oncology [facility] ([facility] [place]) [address] [place] [address] Jan 31, 2024 11:00 (Arrive by 10:45) Follow Up Visit with Nadeen Blood PA-C [facility] Hematology & Oncology [facility] ([facility] [place]) [address] [place] [address] Jan 31, 2024 12:30 (Arrive by 12:15) Injection with SHORT STAY CHAIR 1, HEM/ONC INF [facility] Hematology & Oncology [facility] ([facility] [place]) [address] [facility] [address] Jan 31, 2024 12:30 (Arrive by 12:00) IR PARACENTESIS-RADIOLOGY with [facility] IR [facility] RM 27 [facility] Interventional Radiology Unit ([facility] Radiology [place]) 111 [facility] [id number] Feb 03, 2024 13:30 (Arrive by 13:15) Infusion with CHAIR 5 [facility] Hematology & Oncology - [facility] ([facility]) 111 [facility] [id number] Feb 07, 2024 10:00 MyChart Televideo Short with Errol Ferrell MD [facility] Infectious Disease [facility] (--) [address] [facility] [address] To get ready for your MyChart Video Visit: If you encounter any issues or you would like to speak to someone in advance of the appointment to verify your device is configured, please feel free to call our Patient Access and Service Center at [phone]. Launch your MyChart video appointment by clicking on the Begin Video Visit button located in the Visit Details section for your Upcoming Visits. Before you can start the MyChart Video Visit, you willneed to complete the eCheck-In process, which can take a few minutes. If using a mobile device or a tablet, you will need the [employer] One Platform to Connect ja. Go to [email or web address] for Zoom setup instructions. Please join 15 minutes before your appointment time. Your visit will start when your provider is available. Visit [email or web address] for information on how to get ready. Feb 24, 2024 13:30 (Arrive by 13:15) Infusion with CHAIR 10 [facility] Hematology & Oncology - [facility] ([facility]) [address] [facility] [id number] Feb 29, 2024 14:00 MyChart Televideo Short with David Moya MD [facility] Interventional Radiology [facility] (--) [address] [facility] [address] To get ready for your MyChart Video Visit: If you encounter any issues or you would like to speak to someone in advance of the appointment to verify your device is configured, please feel free to call our Patient Access and Service Center at [phone]. Launch your MyChart video appointment by clicking on the Begin Video Visit button located in the Visit Details section for your Upcoming Visits. Before you can start the MyChart Video Visit, you willneed to complete the eCheck-In process, which can take a few minutes. If using a mobile device or a tablet, you will need the [employer] Platform to Connect ja. Go to [email or web address] for Zoom setup instructions. Please join 15 minutes before your appointment time. Your visit will start when your provider is available. Visit [facility]/[email or web address] for information on how to get ready. Mar 13, 2024 7:45 (Arrive by 7:30) PORT ACCESS/FLUSH with SHORT STAY CHAIR 2, HEM/ONC INF [facility] Hematology & Oncology - [facility] ([facility] [place]) [address] [place] [address] Mar 13, 2024 8:30 (Arrive by 8:15) CT Chest Abdomen Pelvis with [facility] CT 1 [facility] Radiology CT - [facility] ([facility] Radiology [place]) [address] [place] [phone] Please arrive to your appointment well hydrated. Mar 13, 2024 13:00 (Arrive by 12:45) Follow Up Visit with Alisson Carreon MD [facility] Hematology & Oncology - [facility] ([facility]) [address] [place], [place] [id number] Mar 16, 2024 12:00 (Arrive by 11:45) Infusion with CHAIR 11 [facility] Hematology & Oncology [facility] ([facility]) [address] [place] [address] Apr 02, 2024 15:15 (Arrive by 15:00) Follow Up Visit with Adolfo Carreno MD [facility] Surgical Oncology - [facility] ([facility]) [address] [place], [place] [id number] Follow-up appointments and procedures Amb Consult/Follow Up Adult Infectious Disease Scheduling Comments (optional - describe specific scheduling needs if applicable): Before 02/02 before next chemo. Reason for Request: Follow-up for hospitalization for PJP pneumonia Expected Discharge Date (Inpatient Only): 01/19/2024 Authorizing Provider: Kaylah Young MD Amb Consult/Follow Up Hepatology Reason for Request: Follow-up for hospitalization and paracentesis needs Authorizing Provider: Kaylah Young MD Amb Consult/Follow Up Primary Care Physician Outside of Network Reason for Request: Recent hospitalization for PJP pneumonia Authorizing Provider: Kaylah Young MD Amb Consult/Follow Up [facility] Please choose one of the following condition categories: Other Clinical Question Reason for Request: Follow-up recent hospitalization for PJP pneumonia. Expected Discharge Date (Inpatient Only): 01/19/2024 Authorizing Provider: Kaylah Young MD Amb Consult/Follow Up Pulmonary Please choose one of the following condition categories: Other Clinical Question Scheduling Comments (optional - describe specific scheduling needs if applicable): PJP pneumonia Reason for Request: Follow-up from hospitalization for PJP pneumonia Authorizing Provider: Kaylah Young MD Amb Cons/Follow Up Palliative Care Services Further GOC discussions Authorizing Provider: Jackie Juan MD Amb Cons/Follow Up Palliative Care Services Patient interested in starting conversations about what her priorities are and making sure things are in place such as advanced directive. Advanced care planning: Yes Goals of Care: Yes End of Life: No Authorizing Provider: Kaylah Young MD Follow-up labs and tests IR PARACENTESIS-RADIOLOGY Complete by: Jan 19, 2024 (Approximate) patient to contact IR to schedule Process Instructions: Patients that require a CBC and PT/INR have the inclusion disease diagnosis: Deep Needle Biopsy, Deep Need Placement or Drainage Procedure, on Anti-Coagulation Therapy, Coagulopathy, Cancer Diagnosis, End Stage Renal Disease, Chronic Renal Failure, Acute Renal Failure or Chemotherapy. Patients that require a BUN and Creatinine have the inclusion disease diagnosis: Greater than age 60, CAD, CHF, Renal Insufficiency and Diabetes. Dialysis Patients require a Potassium level prior to the procedure. Authorizing Provider: Jackie Juan MD I personally spent > 30 minutes reviewing the chart, evaluating and examining the patient, counseling and preparing the patient for discharge, and coordinating follow up. KAYLAH YOUNG MD 01/19/2024 20:29 PGY-1 Resident Internal Medicine Associated attestation - Silverio Porter MD - 01/20/2024 0755 EDT Attestation statement: I discussed the patient with the resident/fellow at the time of the visit. Iagree with the findings and the plan of care documented in the resident's/fellow's note. Patient is medically stable for discharge. Will continue atovaquone and steroid taper. We will arrange for follow-up with infectious disease and pulmonary medicine as well as PCP and outpatient pantograph i engraver who will continue to manage diuretics for ascites management. In the interim, we will continue outpatient paracenteses with IR. I spent a total of >30 minutes on the date of this encounter meeting with the patient and reviewing documentation/coordinating care as described in the above note. documented in this encounter Discharge Instructions * Discharge Instructions* Chen Montoya RN - 01/09/2024 9:14 EDT Interventional Radiology Discharge Instructions Date: 01/09/2024 Procedure: Paracentesis (removal of fluid from your abdomen) Provider: David Moya MD Aftercare: Activity: Rest today. Do not lift anything over 10 lbs. You may resume your normal activity tomorrow. Be careful on your feet, especially if we have removed a large amount of fluid. Diet: You may resume your usual diet. Do not drink alcohol for 24 hours. Medications: You may resume your usual medications. You may take Tylenol (acetaminophen) for any discomfort you may have. If we have sent a fluid sample [...] after your procedure. When to contact the [facility] (call 911 if symptoms are severe): [...] you experience blurry vision, confusion, or nausea IF YOU HAVE ANY QUESTIONS OR CONCERNS OR IF YOU HAVE DEVELOPED ANY OF THE SYMPTOMS ABOVE, PLEASE CALL THE INTERVENTIONAL RADIOLOGY CLINIC AT , OPTION 2 TO REACH THE NURSE TRIAGE LINE. THERE WILL BE ASSISTANCE AVAILABLE 24 HOURS A DAY. IF YOU CALL AFTER HOURS YOU WILL BE CONNECTED WITHAN ON-CALL PHYSICIAN BY PRESSING 1. * Discharge Instr - AVS First Page* Kaylah Najera MD - 01/19/2024 12:49 EDT You were seen at the [facility] for shortness of breath found to be secondary to PJP pneumonia. Over your time here you continue to improve to the point of being ready for discharge. You received 3's paracentesis procedures here and 1 bronchoscopy. Follow up: Please see your recommended follow-up below. - Oncology - Hepatology - Primary care - Infectious disease - Pulmonary medicine Major Medication Changes: Please review the complete list of your medications below. Some of the most important new medication changes you will have going forward include: START taking: Atovaquone (5 mL) 2 times a day until 02/02 Prednisone 40 mg daily until 01/20, then take prednisone 20 mg daily for 10 days Dilaudid 2 mg as needed nightly for pain DuoNebs every 4 hours as needed for shortness of breath STOP taking: Prednisone 10 mg because you are on a taper started at the hospital. Please speak to your primary care physician about any questions you have regarding your medications. Thank you for choosing [facility] for your care! documented in this encounter Medications at Time [...] estrogen receptor status, unspecified site of breast ([facility]) Take 1 Tablet by mouth 2 times daily as needed for Muscle Spasms. 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 30 Capsule 11 01/06/2024 12/31/2024 apixaban (ELIQUIS) 5 mg tabletIndications:Joaquin geoffrey malignant neoplasm of breast with metastasis ([facility]) Take 1 Tablet by mouth 2 times daily. 60 Tablet 11 12/07/2023 03/13/2024 atovaquone (MEPRON) 750 mg/5 mL suspension Take 10 mL by mouth every 24 hours for 30 days. 300 mL 01/12/2024 02/15/2024 dexAMETHasone (DECADRON) 4 mg tabletIndications:Joaquin hale malignant neoplasm of breast with metastasis [...] Max: 2 mg 30 Tablet 01/19/2024 02/18/2024 nystatin (MYCOSTATIN) 100,000 unit/mL suspension Take 5 mL by mouth 4 times daily for 3 days. 60 mL 01/18/2024 01/21/2024 predniSONE (DELTASONE) 20 mg tablet Take 2 Tablets by mouth daily for 2 days, THEN 1 Tablet daily for 10 days. 14 Tablet 01/20/2024 02/01/2024 prochlorperazine (COMPAZINE) 10 mg tabletIndications:Joaquin hale malignant neoplasm of breast with metastasis [...] 01/20/2024 02/19/2024 documented as of this encounter Ordered Prescriptions Prescription Sig Dispensed Refills Start Date End Da te naloxone (NARCAN) 4 mg/actuation nasal spray 0.1 mL by nasal route as needed for up to 2 doses for Opioid Reversal. 2 Each 01/19/2024 cyclobenzaprine (FLEXERIL) 10 mg tabletIndications:Mal ignant neoplasm of right female breast, unspecified estrogen receptor status, unspecified site of breast ([facility]) Take 1 Tablet by mouth 2 times daily as needed for Muscle Spasms. 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 90 Each 01/18/2024 HYDROmorphone (DILAUDID) 2 mg tablet Take 1 Tablet by mouth at bedtime as needed for up to 30 days for Pain (muscle cramps). Daily Max: 2 mg 30 Tablet 01/19/2024 02/18/2024 senna (SENOKOT) 8.6 mg tablet Take 2 Tablets by mouth daily for 30 days. 60 Tablet 01/19/2024 01/31/2024 spironolactone (ALDACTONE) 100 mg tablet Take 1 Tablet by mouth daily for 30 days. 30 Tablet 01/20/2024 02/19/2024 predniSONE (DELTASONE) 20 mg tablet Take 2 Tablets by mouth daily for 2 days, THEN 1 Tablet daily for 10 days. 14 Tablet 01/20/2024 02/01/2024 gabapentin (NEURONTIN) 100 mg capsule Take 2 Capsules by mouth 3 times daily for 30 days. 180 Capsule 01/18/2024 02/17/2024 nystatin (MYCOSTATIN) 100,000 unit/mL suspension Take 5 mL by mouth 4 times daily for 3 days. 60 mL 01/18/2024 01/21/2024 dapsone 100 mg tablet Take 1 Tablet by mouth daily for 30 days. 30 Tablet 01/12/2024 01/19/2024 atovaquone (MEPRON) 750 mg/5 mL suspension Take 10 mL by mouth every 24 hours for 30 days. 300 mL 01/12/2024 02/15/2024 documented in this encounter Discharge Disposition Disposition Code Departure Means Destination Comment s Home or Self Penitentiary documented in this encounter Progress Notes * Tiara [place] - 01/19/2024 1619 EDT Spouse called pulmonary clinic stating he had an issue with [employer] oxygen delivery and is very upset and wishes to switch to [facility]. Cm called spouse (Nitish) who is upset CM is just finding out about this. CM called rep from [employer] who states they tried to deliver but were unsuccessful due to these reasons stated below: Here is the first note yesterday at 5:37-Tried calling the customer and talk to him and tell him that we have no more e-tanks. He got very angry with me tried calling numerous people and leaving numerous messages. Nobody called me back. 2nd note at 9:16bthis morning: Called no answer left message on answering service return phone number 3rd note at 11:55 today: Rejected order very upset with the day before tech said he's gonna go to [facility]. He's not using us. The should have at least let us go there with a 10 liter concentrator, so she wouldn't be with out O2- We have had an issue this week a shortage of E-tanks which she would only need if she was going outside of the home. CM faxed 'scipts and supporting documentation to [facility] in [place] . CM called them and spoke to their wheelchair van operator first responder answering service who state they will pass msg along to the techs. CM requested a call back to verify this was received. CM called spouse Nitish to relay this info along. CM spoke to [facility] in [place] and confirmed they go the paperwork and 'scripts. ABEL Mims HemOc Assessment Clinician [phone] or avail by [employer] chat * Silverio Porter MD - 01/19/2024 1618 EDT Request for Documentation Clarification [facility] Sunshine Subramanian ; VISIT [id number]; ACCT [id number] Query Response Sent: 02/07/24 11:26 EDT From: SILVERIO PORTER MD Query question: Based on the clinical information below, please select the most appropriate diagnosis Provider response: Severe protein calorie malnutrition Original Query Sent: 02/01/24 14:47 EDT From: Jessica Velasquez, HIM Electric Motor Analyst, COMPUTATIONAL SCIENCES PROFESSOR To: SILVERIO PORTER MD Based on the clinical information below, please select the most appropriate diagnosis * Mild protein calorie malnutrition * Moderate protein calorie malnutrition * Severe protein calorie malnutrition * Unspecified protein calorie malnutrition * Not clinically significant * Other explanation of clinical findings Clinical Information * Patient Summary: RD consult 01/10: Patient presents on admission with severe malnutrition in the context of chronic illness related to decreased PO intake 2/2 poor appetite and taste changes as evidenced by meeting <75% of energy requirements for >1 month, severe muscle and fat wasting. * Assessment * Weight: 01/08: 54.4kg (120lb) * BMI: 22.67 * Muscle mass wasting: RD consult 01/10: severe * Subcutaneous fat loss: RD consult 01/10: severe * Related Comorbid Conditions: * Acute illness: PJP * Poor oral intake: yes * Consults * Processing Associate/interactive producer: 01/10, * Treatments/Procedures/Interventions: * Diet supplementation: yes - high calorie/protein oral supplements * Vitamins: yes Referenced Documents * Progress Notes - 01/11/24 12:58 * Progress Notes - 01/16/24 13:50 * Kareem Coloradocarlos - 01/19/2024 1608 EDT CM Discharge Note CASE MANAGEMENT DISCHARGE NOTE DISCHARGE DATE/TIME: 01/19/24 DESTINATION: home with spouse (If discharging to [facility]) COVID swab ordered and completed: TRANSPORTATION: spouse's car ACCEPTING MD AND NUMBER: PCP and Oncologist RN REPORT/UNIT: N FURNITURE UPHOLSTERER/CHARGE/MD NOTIFIED (Y/N): Y FORMS: (Acute to acute, COLST, MOLST, JOAQUIN, Screen, PASRR, Ambulance): NA IM SIGNED (Y/NA): NA HOME HEALTH: NA DME: Oxygen thru [employer] [facility]- pt will be sent home with 2 tanks PHARMACY/PRESCRIPTIONS: MEDS TO BEDS UTILIZED : YES Patient and/or family who participated in discharge plan: Destination Confirmation: Pt is cognitively intact and will get ride home with Spouse. CM confirmed oxygen will be delivered today. ABEL Mims HemOc Assessment Clinician [phone] or avail by [employer] * Radha Sexton RN - 01/19/2024 0328 EDT Data: taken over care at 1900h. Admitted for SOB. Ox3. On room air. Independent to the bathroom. Nocomplaints of pain. Action: clustered nursing care. Due meds given as per AUG. Stomach is bulging and firm again. Requested and given painkillers per request. Response: slept well. Possible discharge today. BP 107/84 (BP Cuff Location: Left arm, BP Patient Position: Semi fowlers) Pulse 96 Temp 36.9 ??C (98.4 ??F) (Oral) Resp 16 Ht 154.9 cm (61) Wt 54.4 kg (120 lb) SpO2 92% BMI 22.67 kg/m?? RADHA SEXTON RN 01/19/2024 3:28 * Kendra Worthy RN - 01/18/2024 1812 EDT Treatment date changed to 02/[address] Daphne Tripp. * Tiara [place] - 01/18/2024 1538 EDT [facility] Department of Case Management and Social Work Case Management Progress Note Patient Name Level of Care and Accommodation Code: Patient Class: Medically Ready: Y/N Sunshine Subramanian Acute General Inpatient n Primary Dx: Decisional Capacity: Y/N Primary Support/ CareGiver: Advance Directive Shortness of breath y y Advance Directives (For Healthcare) Healthcare Directive: No, patient does not have advance directive for healthcare treatment Information Provided on Healthcare Directives: (sent) Information on Healthcare Directives Requested: Yes Patient Requests Assistance: No Disposition Information Appropriate to transfer back: Y/N Length of Stay (in days): Estimated Date of D/C: LTC Medicaid Status: na 01/18 n Primary Care Provider: AR/[facility]BERT/SNF referred: Y/N Bed Offers: Y/N Escalated to Leadership: Y/N Linda Blancas n n n Mobility Level: Recommended D/C Location Payor: Bedside Mobility Assessment Tool (BMAT) Bedrest or non-weight bearing orders?: No Assessment Level 1-Sit & Shake: Pass Assessment Level 2-Stretch & Point: Pass Assessment Level 3-Stand: Pass Assessment Level 4-Step: Pass Mobility level determined: Mobility Level 4 use gait belt, walker, crutches, cane, prosthetic(s) Number of caregivers reccommended: 0 Number of caregivers used: 0 Payor: MEDICARE / Plan: MEDICARE A/B / Product Type: Medicare GL / Barriers to Discharge Pt had a para today to remove fluid. Plan to discharge tmw on oral antibiotics. Plan CM faxed 'script and supportive documentation to [employer] [facility] for home oxygen and asked for pediatric cannula and oximyzer. E-Signature ABEL Mims HemOc Assessment Clinician [phone] or avail by [employer] chat 01/18/24 15:39 * Tere Dc MD - 01/18/2024 8785 EDT INFECTIOUS DISEASES CONSULT SERVICE PROGRESS NOTE CHIEF COMPLAINT/ID: 63 yo with metastatic breast cancer and PJP Subjective: feels markedly improved since I saw her on Tuesday! Has many questions about what may have caused the fever setback a couple of days ago. REVIEW OF SYSTEMS: 10-point review of systems is negative except as mentioned above Please refer to the initial ID Consult Note obtained on 01/12/24 for Medical/Family/Social History. Xin reviewed this information and there is no significant change from prior. Antibiotics: Atovaquone 01/12 - ongoing Cefepime 01/15 - ongoing Prophylaxis: valacyclovir PHYSICAL EXAM: VS: BP 116/68 (BP Cuff Location: Left arm, BP Patient Position: Supine) Pulse 96 Temp 36.8 ??C (98.2 ??F) (Oral) Resp 16 Ht 154.9 cm (61) Wt 54.4 kg (120 lb) SpO2 92% BMI 22.67 kg/m?? GENL: upbeat EENT: moist mucous membranes NECK: supple CHEST: port in place ABD: distended NEURO: awake LABORATORY: Reviewed in detail in PRISM. WBC/RBC/HGB/HCT/PLT/ANC13.71/2.05/7.6/23.4/131/-- (01/16 0416) Cr 0.62 MICROBIOLOGY DATA: Reviewed in detail in PRISM. Pertinent for: 01/15 BCx: pending 01/15 urine cx: pending 01/11 BCx: NGTD 01/11 anaplasma/babesia: neg 01/10 BAL: PJP PCR 01/10 BAL cxs: PENDING 01/09 Fungitell: positive 01/08 Strep pna/legionella: neg 01/07 FULL respir panel: neg IMAGING DATA: I have independently reviewed the available imaging. ASSESSMENT/RECOMMENDATIONS: 63 yo with ER+ metastatic breast cancer and Pneumocystic jirovecii pneumonia. Profile complicated by sulfa intolerance (hives/rash). Has actually done well from a respiratory standpoint on atovaquone with improvement in dyspnea. Isolated fever on 01/15 may also have been part of her PJP. Unclear that she needed the launch of cefepime and it seems perfectly reasonable to discontinue it. -continue atovaquone to complete a full 21 days I have been in touch with the primary team about my recommendations. Either I will see patient (or Dr. Ferrell) in follow up in the next 2-3 weeks. I spent a total of 60 minutes on the date of this encounter meeting with the patient and reviewing documentation/coordinating care as described in the above note. Tere Dc MD, MPH Infectious Disease * Lois Venegas, RT - 01/18/2024 0915 EDT Home Oxygen Evaluation Name: Sunshine Subramanian Date of : 1960 PCP: Linda Blancas Expiration Date: 01/20/24 Inpatient Evaluation (results were reported within the two days before discharge). Oxygen improves the hypoxemia that was demonstrated during exercise while on room air. Date: 01/18/24 Time: 0800 EXERCISE EVALUATION: O2 Sat on room air at rest: 93% O2 Sat during exercise on room air: 78% O2 Sat during exercise with oxygen: Sat 94% @ 10 lpm Oximyzer If prescribed liter flow rate will be greater than or equal to 4lpm, O2 Sat must be documented on 4lpm before proceeding to higher FIO2 @ 4lpm O2 Sat = 83% Recommendations: Patient qualifies for 10L oxymizer with exertion. AT REST EVALUATION: O2 sat on room air taken at rest (awake). Recommendations: Patient doesn't qualify for Home O2 at rest RT LUCIE 01/18/2024 * Kaylah Najera MD - 01/18/2024 0707 EDT Medical Oncology Progress Note Service Date: 01/18/24 Admit Date: 01/08/2024 Reason for Admission: 63 y.o. female admitted with hx of metastatic breast cancer with resultant portal hypertension from liver metastases who presented with a chief complaint of Acute on subacute dyspnea and now with a principal diagnosis of drug-induced pneumonitis versus PJP pneumonia. 24 Hour Events: NAEON Subjective/Objective Subjective Today patient sitting with feeling well. Remains without abdominal pain or fever sx. Crampspresent last night but not as severe. Responding well to dilaudid and would like rx for d/c. Pt ready for para. Preference for IR performed procedure but understands hospital work flow limiting options. Ok for paracentesis at bedside this afternoon. Review of Systems A ten point review of systems was performed and was negative except for pertinentpositives noted above. Objective Vital Signs Temp: [36.7 ??C (98.1 ??F)-36.8 ??C (98.2 ??F)] , BP: (111-131)/(64-71) , Heart Rate: --, SpO2: [92%-97 %] , Resp: [14-16] Physical Exam GEN: alert, awake, in NAD HEENT: EOMi, no slurring of speech, no facial asymmetries ABD: distended w/ fluid. 3 para access sites on R abdomen. 2 still oozing. 1 ascitic fluid, 1 scantblood. Mild bruising. Dermabond placed over all three puncture sites with resolution of leakage. EXT: Extremities warm well-perfused. RLE w/ 2+ edema to foot. No edema to calf but pain on squeeze test. DP pulse 1+, PT pulse not palpable under edema. RLE WNL. LE symmetric in color and temp. Cap refill delayed on plantar surface of R foot @ 6sec. Normal otherwise. NEURO: AOx3, no focal deficit PSYCH: appropriate affect for current situation Is PICC or central line present? Yes, it is still present. The line is still required. Port present Medications Reviewed Labs Reviewed Results for orders placed or performed during the hospital encounter of 01/08/24 (from the past 24 hour(s)) BASIC METABOLIC PANEL (BMP) Result Value Ref Range Sodium 134 (L) 136 - 145 mmol/L Potassium 4.4 3.5 - 5.0 mmol/L Chloride 100 96 - 110 mmol/L CO2 Total 30 22 - 32 mmol/L Anion Gap 4 (L) 5 - 14 mmol/L Glucose 98 70 - 99 mg/dl Calcium 8.7 8.5 - 10.5 mg/dL BUN 23 10 - 26 mg/dL Creatinine 0.62 0.52 - 1.04 mg/dL eGFR 101 >60 mL/min/1.73m2 *Note: Due to a large number of results and/or encounters for the requested time period, some results have not been displayed. A complete set of results can be found in Results Review. Micro Reviewed Imaging Reviewed Assessment/Plan Assessment Sunshine Subramanian is a 63 y.o. female with a PMHx significant for metastatic ER+ breast cancer(mets to liver c/b portal HTN, lymphadenopathy, bony mets), UE thrombus and PE on Eliquis who presented with dyspnea/hypoxia on 01/07 initially thought to be 2/2 Enhertu-mediated pneumonitis but now s/p bronchoscopy on 01/10 now with 8/4 bronc culture positive for PJP pneumonia (ID & Pulm managing). Patient continues to improve. Cause of / fever and leukocytosis remains unknown but patient isimproving on current therapies. Cefepime course will be complete after AM dose 01/17. VSS and clinical picture improved. Planning for discharge tomorrow AM pending no changes. Paracentesis completed 01/17 with residual drainage again. Pt concerned regarding the drainage. It was discussed that with increasing milena the leakage is common and not unexpected. As a trial of foam tape was unsuccessful, we derma bonded the access sites with leakage control achieved. Pts oncologist contacted regarding para orders outpatient and she recommended hepatology control para orders. Plan to [facility] hepatology 01/17. Plan Acute hypoxic respiratory failure PJP pneumonia P/w progressive SOB for several months and worsening over the month of December, started Enhertu 12/[address]GO on CT. Bronchoscopy 01/10 w/ positive Fungitell & BAL positive for PJP. All other infectious wkup negative. Atovaquone therapy in place. Pulmonary following with recs. ID following with recs. Respiratory status improved w/o resting O2 requirement. Activity O2 requirement remains. -Prednisone taper per pulmonology (will be completed on d/c) - Continue GROWTH HACKER valtrex 500mg daily ppx - Home oxygen evaluation completed- need oxymizer & Peds NC. - Duo-Nebs PRN on discharge--> pt needs duo-neb machine. - Pulm consulted, appreciate recs - follow up in 6 weeks with Pulm (no CT or PFTs for now) -Prednisone taper 01/21 20mg x10 days then d/c - Referral to palliative as outpatient for continuation of discussions - Consult ID, appreciate recs as below: -21 days atovaquone therapy then follow up with ID to be approved prior to Enhertu treatment. - Home O2 coordination w/ case management--appreciate team efforts Thrush, resolved Present on exam initially and BAL/bronc. Significantly improved to borderline resolved 01/14. Will finish out treatment. PT reported missed doses. Unlikely to effect overall course but will add one dayfor re-assurance. - nystatin swish and spit, continue x 7 days minimum - Pooja on BAL likely contaminant from this, not consistent with Candidal infection on review with ID Metastatic breast cancer Portal hypertension with ascites 2/2 liver mets Acute on Chronic malignant ascites. Continues to require paracentesis for comfort. Needed 3 this admission. Increasing leakage with increasing milena. Per Oncology pts para orders will be via hepatology outpt. Cell count w/o c/f SBP on 01/17 para fluid. - 01/16 held furosemide w/ resolved laboratory alkalosis. - 01/17 decreased lasix 10mg from GROWTH HACKER 20mg - Referral to f/u w/ hepatology on d/c for diuretic plans/recs. - GROWTH HACKER Spironolactone restarted 01/17 - IR para order outpatient x2 placed, Sendy and her have been thinking about potential peritoneal drains - will need to loop in campaign coordinator to further conversation outpatient - Ca 27-29 ordered 8 AM labs per pt request Chronic pain, Cancer Related Chronic muscle spasms Acute on chronic muscle cramps. No electrolyte abnormalities, may be related to fluid shifts with diuresis, ?restless legs and iron deficiency component. Not improved with iron infusion. Mild improvement with diuretic holiday, cramps still persisted with required dilaudid 0.5mg IV. Trial PO dilaudid 01/17 evening. If 1mg not therapeutic, will send pt home on 2 mg tab. - continue GROWTH HACKER gabapentin 300mg in the morning and afternoon, 600mg at bedtime. - continue flexeril 5-10mg BID prn - Dilaudid 1mg PO tab at bedtime prn for sleep/cramps discontinued zolpidem 07/15 poor response from patient - Okay for spot doses of IV Dilaudid for severe pain - [facility] PCP for pain mediations continuation outpatient Mood disorder - continue GROWTH HACKER venlafaxine 75mg daily RUE DVT and PE Dx 11/09/23. Unilateral swelling on exam 01/17 w/ limited ability to assess pulses. - Duplex US 01/17 w/o any evidence of DVT - Resumed GROWTH HACKER Eliquis 01/11 CHECKLIST: L/D/A: Chest port, nasal cannula Diet: Regular Diet Code: Full Code VTE Prophylaxis apixaban Discharge Plan tomorrow assuming no change in sx. Consults Pulmonology, respiratory therapy and infectious disease appreciate recs KAYLAH YOUNG MD 01/18/2024 7:07 Internal Medicine Associated attestation - Silverio Porter MD - 01/19/2024 0756 EDT Attestation statement: I discussed the patient with the resident/fellow at the time of the visit. Ericee with the findings and the plan of care documented in the resident's/fellow's note. Plan for paracentesis today with resumption of diuretics. She qualified for oxygen with ambulation and will coordinate this with CM. One more day of cefepime and then it can be discontinued. Plan fordischarge tomorrow. Will coordinate follow up with pulm, ID, Onc, and PCP. I spent a total of 35 minutes on the date of this encounter meeting with the patient and reviewing documentation/coordinating care as described in the above note. * Pretty Spears - 01/17/2024 1344 EDT [facility] Spiritual Care Note Re: Sunshine Subramanian : 1960, AGE: 63 y.o. ROOM: [place] [address] Spirituality: Buddhism BACKGROUND Coding Specialist met with patient who is being seen by palliative care. Patient was in good spirits and appreciated sharing her positivity and hopefulness. ASSESSMENT Beliefs & Values She grew up Buddhist and then became Buddhism. Her sienna grounds her and helps her serve and help others and embrace the times and life that she has. Connections She shared 4 stories abut people who had , clearly she connected in meaningful ways with peopleas they helped them navigate their end of life journeys. Coping Overall she is coping well, she believes she has more time to live and that God has more for her todo to serve others. Meaning Making She finds meaning in helping others and bringing positivity and hopefulness INTERVENTIONS Grief care, active listening, prayer CARE PLAN Will follow up tomorrow RECOMMENDATIONS TIME STAMP: 30 minutes PRETTY SPEARS, [facility] Coding Specialist Oral 131 Thank you for the opportunity to provide for this patient's/family's spiritual needs. * Kaylah Najera MD - 01/17/2024 0855 EDT Medical Oncology Progress Note Service Date: 01/17/24 Admit Date: 01/08/2024 Reason for Admission: 63 y.o. female admitted with hx of metastatic breast cancer with resultant portal hypertension from liver metastases who presented with a chief complaint of Acute on subacute dyspnea and now with a principal diagnosis of drug-induced pneumonitis versus PJP pneumonia. 24 Hour Events: pain needed dilaudid x1 afebrile Subjective/Objective Subjective Feels well & slept well. BP low this AM. No new sx. Took dilaudid 1x PRN overnight for cramps. Resolution of paracentesis site ooze. No fevers, body aches, chills, diarrhea, urinary sx or abdominal pain. RVP negative. Review of Systems A ten point review of systems was performed and was negative except for pertinentpositives noted above. Objective Vital Signs Temp: [36.5 ??C (97.7 ??F)-36.9 ??C (98.4 ??F)] , BP: (96-131)/(57-62) , Heart Rate: [99 BPM-108 BPM] , SpO2: [92 %-99 %] , Resp: [18-20] Physical Exam GEN: sleeping when I walked in, awake and present after, pleasant, in NAD, HEENT: EOMi, nasal cannula in place, anicteric sclera, oral mucosa moist without erythema. No thrush appreciated to bilateral buccal mucosa some lingually on tongue or posterior oropharynx. No ulcerations appreciated in the oral cavity. CV: RRR PULM: Clear bilaterally ABD: Non distended. Soft. Tender to epigastric palpation. Nontender to other quadrants palpation. No drainage from placement of foam tape yesterday. EXT: Extremities warm well-perfused. NEURO: AOx3, no focal deficit PSYCH: appropriate affect for current situation Is PICC or central line present? Yes, it is still present. The line is still required. Port present Medications Reviewed Labs Reviewed Results for orders placed or performed during the hospital encounter of 01/08/24 (from the past 24 hour(s)) SARS COV2, FLU A/B, RSV DETECT BY PCR Specimen: Nasopharynx; Swab Result Value Ref Range FLU A RNA Result (FLARES) Negative Negative FLU B RNA Result (FLBRES) Negative Negative RSV RNA Result (RSVRES) Negative Negative COVID-19 rt-PCR Result Negative Negative BASIC METABOLIC PANEL (BMP) Result Value Ref Range Sodium 135 (L) 136 - 145 mmol/L Potassium 3.8 3.5 - 5.0 mmol/L Chloride 97 96 - 110 mmol/L CO2 Total 36 (H) 22 - 32 mmol/L Anion Gap 2 (L) 5 - 14 mmol/L Glucose 111 (H) 70 - 99 mg/dl Calcium 8.4 (L) 8.5 - 10.5 mg/dL BUN 22 10 - 26 mg/dL Creatinine 0.56 0.52 - 1.04 mg/dL eGFR 103 >60 mL/min/1.73m2 COMPLETE BLOOD COUNT Result Value Ref Range WBC 13.71 (H) 4.00 - 12.40 K/cmm RBC 2.05 (L) 3.86 - 5.04 M/cmm Hemoglobin 7.6 (L) 11.6 - 15.2 g/dL HCT 23.4 (L) 34.9 - 44.4 % MCV 114 (H) 81 - 98 fL MCH 37.1 (H) 26.7 - 33.3 pg MCHC 32.5 32.1 - 35.9 g/dL RDW-CV 24.9 (H) <14.7 % RDW-SD 104.2 (H) <50.4 fl PLT 131 (L) 141 - 377 K/cmm MPV 11.0 9.5 - 12.7 fL *Note: Due to a large number of results and/or encounters for the requested time period, some results have not been displayed. A complete set of results can be found in Results Review. Micro Reviewed Imaging Reviewed Assessment/Plan Assessment Sunshine Subramanian is a 63 y.o. female with a PMHx significant for metastatic ER+ breast cancer(mets to liver c/b portal HTN, lymphadenopathy, bony mets), UE thrombus and PE on Eliquis who presented with dyspnea/hypoxia on 01/07 initially thought to be 2/2 Enhertu-mediated pneumonitis but now s/p bronchoscopy on 01/10 now with positive fungitell. Infectious disease consulted and concern for PJP pneumonia. 01/14 bronc culture positive for PJP pneumonia. Patient was continuing to improve until spiked fever 8/5 AM. Unknown cause of fever. receiving cefepime with broad coverage w/o clear infectious insult to account for yesterdays leukocytosis and new fever. VS improved, WBC resolved, and remains asx. Will tbw Consulting teams regarding plan for current cares and discharge planning. Possibledischarge tomorrow. Plan Acute hypoxic respiratory failure PJP pneumonia P/w progressive SOB for several months and worsening over the month of December, started Enhertu 12/[address] on [address]. Bronchoscopy 01/10 w/ positive Fungitell with further labs and Micro pending. BAL positive for PJP. Patient already on treatment. Respiratory status stable still requiring supplemental support. Respiratory needs fluctuate but overall stable -improving on current therapies. -Prednisone decreased to 40 mg 01/14, taper continues - Continue GROWTH HACKER valtrex 500mg daily ppx (initially prescribed iso home prednisone) - Home oxygen evaluation will need to be repeated 01/16- may need oxymizer. Needs pediatric nasal cannula on discharge - Pulm consulted, appreciate recs - follow up in 6 weeks with pulm (no CT or PFTs for now) -Prednisone taper 01/21 20mg x10 days then d/c - Carmen - Referral to palliative as outpatient - Consult ID, appreciate recs as below: -Respiratory virus panel neg - If abdominal pain returns or fevers again would get CT abdomen and pelvis looking for source -Follow-up atovaquone duration - F/u Cefepime duration for prior fever/leukocytosis that has since resolved Thrush, resolved Present on exam initially and BAL/bronc. Significantly improved to borderline resolved 01/14. Will finish out treatment. - nystatin swish and spit, continue x 7 days minimum - Pooja on BAL likely contaminant from this, not consistent with Candidal infection on review with ID Metastatic breast cancer Portal hypertension with ascites 2/2 liver mets Acute on Chronic malignant ascites. Continues to require paracentesis for comfort. Most recent 01/11.Prior drainage of para site has improved without leaks. - 01/16 held furosemide - F/u 01/17 K+ - 01/17 hold spirolactone for assessment of response of alkalosis - IR para order outpatient placed, Sendy and her have been thinking about potential peritoneal drains - will need to loop in oncologist to further conversation outpatient Chronic pain, Cancer Related Chronic muscle spasms Mood disorder Acute on chronic muscle cramps. No electrolyte abnormalities, may be related to fluid shifts with diuresis, ?restless legs and iron deficiency component. Not improved with iron infusion.no improvement with 1/2 dose reduction of furosemide. Planning for full diuretic holiday to see if sx improve along with alkalosis. - continue GROWTH HACKER gabapentin 300mg in the morning and afternoon, 600mg at bedtime. - continue flexeril 5-10mg BID prn - continue GROWTH HACKER venlafaxine 75mg daily - GROWTH HACKER Zolpidem reordered for difficulty sleeping secondary to cramps - Okay for spot doses of IV Dilaudid for severe pain RUE DVT and PE Dx 11/09/23 - Resumed GROWTH HACKER Eliquis 01/11 CHECKLIST: L/D/A: Chest port, nasal cannula Diet: Regular Diet Code: Full Code VTE Prophylaxis apixaban Discharge Plan possibly tomorrow pending ID discussion regarding infectious wkup and abx duration. Consults Pulmonology, respiratory therapy and infectious disease appreciate recs KAYLAH YOUNG MD 01/17/2024 8:55 Internal Medicine Associated attestation - Silverio Porter MD - 01/17/2024 1531 EDT Attestation statement: I discussed the patient with the resident/fellow at the time of the visit. Iagree with the findings and the plan of care documented in the resident's/fellow's note. We finalized a steroid taper plan with pulmonology. She has not had recurrent fever. She remains onatovaquone for management of PJP pneumonia. Of note, she was started on cefepime several days ago for her fever but it is unclear if this fever was related to PJP pneumonia or an alternative infection covered by cefepime. Overall, she is improving and approaching medically stable for discharge. Tariq will require supplemental oxygen when she discharges. She will also require ongoing serial paracenteses for management of her ascites. She is developing a contraction alkalosis and we may needto dial back or briefly pause diuretics. I spent a total of 35 minutes on the date of this encounter meeting with the patient and reviewing documentation/coordinating care as described in the above note. * Tiara [place] - 01/16/2024 1607 EDT Pt remains IP due to a fever ; it is hopeful she will go home tmw. ABEL Mims HemOc Assessment Clinician [phone] or avail by [employer] chat * Kaylah Najera MD - 01/16/2024 1542 EDT Medical Oncology Progress Note Service Date: 01/16/24 Admit Date: 01/08/2024 Reason for Admission: 63 y.o. female admitted with hx of metastatic breast cancer with resultant portal hypertension from liver metastases who presented with a chief complaint of Acute on subacute dyspnea and now with a principal diagnosis of drug-induced pneumonitis versus PJP pneumonia. 24 Hour Events: Fever. Obtained UA, blood cultures, chest x-ray and started cefepime. Subjective/Objective Subjective Cramps persist. Shortness of breath worse this morning but improved this afternoon. Requiring additional oxygen this morning but improved this afternoon. Awoke at 5 AM with fever and abdominal pain to generalized epigastric area. Denies chest pain nausea vomiting denies diarrhea. No pain with bowelmovements or urination. No skin lesions. Decreased voice from yesterday resolved. No oral or throatpain. Still having bowel movements but is constipated. Reports ascites fluid collection reaccumulating slower than prior. Interested in increasing dose of Flexeril and holding Abilify given last night symptoms secondary to Abilify were way too sleepy. Uses 5 to 10 mg at home of Flexeril and only getting 5 here. Patient amendable to staying in hospital for further workup. Review of Systems A ten point review of systems was performed and was negative except for pertinentpositives noted above. Objective Vital Signs Temp: [36.8 ??C (98.2 ??F)-38.5 ??C (101.3 ??F)] , BP: (114-131)/(55-71) , Heart Rate: [104 BPM-120BPM] , SpO2: [93 %-100 %] , Resp: [18-22] Physical Exam GEN: alert, pleasant, in NAD, HEENT: EOMi, nasal cannula in place, anicteric sclera, oral mucosa moist without erythema. No thrush appreciated to bilateral buccal mucosa some lingually on tongue or posterior oropharynx. No ulcerations appreciated in the oral cavity. ABD: Non distended. Soft. Tender to epigastric palpation. Nontender to other quadrants palpation. Minor fluid shift. Bandage covering prior paracentesis access site secondary to persistent drainage EXT: Extremities warm well-perfused. No pitting edema present but mildly edematous. Pulses palpablein bilateral lower extremities 2+. NEURO: AOx3, no focal deficit PSYCH: appropriate affect for current situation Is PICC or central line present? Yes, it is still present. The line is still required. Port present Medications Reviewed Labs Reviewed Results for orders placed or performed during the hospital encounter of 01/08/24 (from the past 24 hour(s)) BASIC METABOLIC PANEL (BMP) Result Value Ref Range Sodium 132 (L) 136 - 145 mmol/L Potassium 3.9 3.5 - 5.0 mmol/L Chloride 92 (L) 96 - 110 mmol/L CO2 Total 35 (H) 22 - 32 mmol/L Anion Gap 5 5 - 14 mmol/L Glucose 81 70 - 99 mg/dl Calcium 8.7 8.5 - 10.5 mg/dL BUN 22 10 - 26 mg/dL Creatinine 0.71 0.52 - 1.04 mg/dL eGFR 96 >60 mL/min/1.73m2 UA CHEMICAL & SEDIMENT + REFLEX TO CULTURE Result Value Ref Range Color UA Yellow Colorless, Yellow Clarity UA Clear Clear Glucose UA Negative Negative mg/dL Bilirubin UA 1+ (A) Negative Ketones UA Trace (A) Negative Specific [place], Urine 1.022 1.001 - 1.030 Blood UA Negative Negative Urobilinogen UA 1.0 0.2-1.0 mg/dL mg/dL Nitrite UA Negative Negative Leukocyte Esterase UA 2+ (A) Negative Protein UA Trace (A) Negative mg/dL pH, UA 6.0 <8.5 Urine RBC Count, Auto 0 - 2 0 - 2 Cells/HPF Urine WBC Count, Auto 10 - 50 (A) 0 - 3 Cells/HPF Urine Squamous Count, Auto None Seen None Seen Cells/HPF Urine Hyaline Cast Count, Auto <=10 <=10 Casts/LPF Urine Bacteria Count, Auto None Seen None Seen Bacteria/HPF COMPLETE BLOOD COUNT AND DIFFERENTIAL Result Value Ref Range WBC 25.58 (H) 4.00 - 12.40 K/cmm RBC 2.27 (L) 3.86 - 5.04 M/cmm Hemoglobin 8.4 (L) 11.6 - 15.2 g/dL HCT 25.1 (L) 34.9 - 44.4 % MCV 111 (H) 81 - 98 fL MCH 37.0 (H) 26.7 - 33.3 pg MCHC 33.5 32.1 - 35.9 g/dL RDW-CV 25.0 (H) <14.7 % RDW-SD 99.6 (H) <50.4 fl PLT 198 141 - 377 K/cmm MPV 10.8 9.5 - 12.7 fL Nucleated Red Blood Cells 1 (H) <=0 /100WBC'S DIFFERENTIAL, AUTOMATED MANUAL Result Value Ref Range % Neutrophils 88.6 Not Indicated % % Lymphocytes 7.0 Not Indicated % % Monocytes 4.4 Not Indicated % Absolute Neutrophils 22.66 (H) 2.20 - 8.85 K/cmm Absolute Lymphocytes 1.79 1.09 - 3.30 K/cmm Absolute Monocytes 1.13 (H) 0.10 - 0.80 K/cmm Type of Differential: Manual *Note: Due to a large number of results and/or encounters for the requested time period, some results have not been displayed. A complete set of results can be found in Results Review. Micro Reviewed Imaging Reviewed Assessment/Plan Assessment Sunshine Subramanian is a 63 y.o. female with a PMHx significant for metastatic ER+ breast cancer(mets to liver c/b portal HTN, lymphadenopathy, bony mets), UE thrombus and PE on Eliquis who presented with dyspnea/hypoxia on 01/07 initially thought to be 2/2 Enhertu-mediated pneumonitis but now s/p bronchoscopy on 01/10 now with positive fungitell. Infectious disease consulted and concern for PJP pneumonia. 01/[facility] culture positive for PJP pneumonia. Patient was continuing to improve until spiked fever 8/5 AM. Unknown cause of fever. Received cefepime with broad coverage. UA obtained overnight +/- UTI but asymptomatic. Blood cultures without growth, chest x-ray overall improved from prior hospitalization. Continue to monitor symptoms. Plan Acute hypoxic respiratory failure PJP pneumonia P/w progressive SOB for several months and worsening over the month of December, started Enhertu 12/[address]GO on CT. Bronchoscopy 01/10 w/ positive Fungitell with further labs and Micro pending. BAL positive for PJP. Patient already on treatment. Respiratory status stable still requiring supplemental support. CXR 01/15 improved from prior chest x-ray this admission. -Prednisone decreased to 40 mg 01/14, taper continues - Continue GROWTH HACKER valtrex 500mg daily ppx (initially prescribed iso home prednisone) - f/u G6PD ordered-> needs followed up - Cryptococcal antigen negative - Home oxygen evaluation will need to be repeated 01/16- may need oxymizer. Needs pediatric nasal cannula on discharge - Pulm consulted, appreciate recs - follow up in 6 weeks with PFTs and CT chest (week of 02/11) -Prednisone taper - Referral to palliative as outpatient - Consult ID, appreciate recs as below: -Respiratory virus panel repeated - If abdominal pain returns or fevers again would get CT abdomen and pelvis looking for source -Follow-up atovaquone duration -Touch base regarding duration of time needed to monitor patient in hospital for infection and treatment Thrush, resolved Present on exam initially and BAL/bronc. Significantly improved to borderline resolved 01/14. Will finish out treatment. - nystatin swish and spit, continue x 7 days minimum - Pooja on BAL likely contaminant from this, not consistent with Candidal infection on review with ID Metastatic breast cancer Portal hypertension with ascites 2/2 liver mets Acute on Chronic malignant ascites. Continues to require paracentesis for comfort. Most recent 01/11.Most recent paracentesis site with persistent drainage--CTM - Lasix 20 mg daily starting 01/15 (monitor potential contraction alkalosis on BMP) - Home spironolactone 100mg daily - IR para order outpatient placed, Sendy and her have been thinking about potential peritoneal drains - will need to loop in oncologist to further conversation outpatient - Patient will notify team few days prior to thinking she needs paracentesis in case additional para needed prior to discharge Chronic pain, Cancer Related Chronic muscle spasms Mood disorder Acute on chronic muscle cramps. No electrolyte abnormalities, may be related to fluid shifts with diuresis, ?restless legs and iron deficiency component. Not improved with iron infusion. - continue GROWTH HACKER gabapentin 300mg in the morning and afternoon, 600mg at bedtime. - continue flexeril 5mg BID prn - continue GROWTH HACKER venlafaxine 75mg daily - GROWTH HACKER Zolpidem reordered for difficulty sleeping secondary to cramps - Okay for spot doses of IV Dilaudid for severe pain - Follow-up leg cramps after night of 01/15 status post decreased Lasix dose RUE DVT and PE Dx 11/09/23 - Resumed GROWTH HACKER Eliquis 01/11 CHECKLIST: L/D/A: Chest port, nasal cannula Diet: Regular Diet Code: Full Code VTE Prophylaxis apixaban Discharge Plan Will need to loop back with ID Tuesday, but anticipate likely DC Tuesday if remains stable and will need home O2 Consults Pulmonology, respiratory therapy and infectious disease appreciate recs KAYLAH YOUNG MD 01/16/2024 15:42 Internal Medicine Associated attestation - Silverio Porter MD - 01/17/2024 0736 EDT Attestation statement: I discussed the patient with the resident/fellow at the time of the visit. Iagree with the findings and the plan of care documented in the resident's/fellow's note. Patient developed a fever early this morning. We are discussing case with infectious disease and pulmonary medicine. Continuing atovaquone and repeating viral respiratory studies. We are also continuing a steroid taper as outlined in today's note from pulmonary medicine. Of note, she does have somenew abdominal pain today which we will have to be mindful of in the setting of her fever. This may warrant abdominal CT imaging. I spent a total of 35 minutes on the date of this encounter meeting with the patient and reviewing documentation/coordinating care as described in the above note. * Ben Bentley, NISHANT - 01/16/2024 1339 EDT Nutrition Assessment Note: Reassessment BACKGROUND DATA Subjective: Pt says she's doing a lot better w/ a good appetite, has been enjoying all the food options, says things taste good but are still healthy. Doesn't really like the Boost, but liked the idea of the Mighty Shake and is willing to give it a try. Encouraged pt not to limit herself to healthy foods andto choose whatever she may be craving. No nausea at this time. Current Nutrition Orders: Diet Order: Regular Nutrition Focused Physical Exam Subcutaneous Fat Assessment Orbital Region: Severe loss (01/11/24 1149) Cheek Region: Severe loss (01/11/24 1149) Upper Arm Region: Not assessed (01/11/24 1149) Midaxillary Line: Not assessed (01/11/24 114) Muscle Mass Assessment [place] Region: Severe loss (01/11/24 1149) Clavicle Region: Severe loss (01/11/24 1149) Shoulder/Acromion/Clavicle Region: Not assessed (01/11/24 1149) Scapula Region: Not assessed (01/11/24 1149) Hand Region: Severe loss (01/11/24 1149) Thigh/Patellar Region: Not assessed (01/11/24 1149) Calf Region: Not assessed (01/11/24 114) NFPE Assessment Summary of Fat Wasting: Severe fat wasting (01/11/24 1149) Summary of Muscle Wasting: Severe muscle wasting (01/11/24 114) Physical Findings: Digestive Systems: Last BM (01/14/24) Dentition: Teeth: Missing teeth per flowsheets Edema: none noted Skin: WDL Allergies on file: Amoxicillin, Sulfa (sulfonamide antibiotics), and Sulfamethoxazole-trimethoprim Anthropometrics: Height: 154.9 cm (61) Wt Readings from Last 6 Encounters: 01/09/24 54.4 kg (120 lb) 12/20/23 55.6 kg (122 lb 9.6 oz) 12/12/23 53.5 kg (118 lb) 12/09/23 55 kg (121 lb 4.1 oz) 11/29/23 59.9 kg (132 lb 1.6 oz) 11/23/23 62.6 kg (138 lb 0.1 oz) Weights Filed This Admission 01/08/24 1539 01/09/24 1618 Weight: 54.4 kg (120 lb) 54.4 kg (120 lb) Pertinent Medications: Current Facility-Administered Medications Medication Route Frequency alteplase (CATHFLO ACTIVASE) injection 2 mg intercatheter PRN apixaban (ELIQUIS) tablet 5 mg oral BID atovaquone (MEPRON) 750 mg/5 mL suspension 750 mg oral BID benzonatate (TESSALON) capsule 100 mg oral TID PRN blood thinner patient education booklet 1 Each other Once (Without Time Specified) cefepime (MAXIPIME) 2,000 mg in sodium chloride (NS MBP) 50 mL IVPB intravenous Q8H cyclobenzaprine (FLEXERIL) tablet 5 mg oral BID PRN dextromethorphan-guaiFENesin (ROBITUSSIN DM) 10-100 mg/5 mL syrup 10 mL oral Q4H PRN furosemide (LASIX) tablet 20 mg oral DAILY gabapentin (NEURONTIN) capsule 300 mg oral BID (0800 & 1400) gabapentin (NEURONTIN) capsule 600 mg oral QHS ipratropium-albuteroL (DUONEB) 0.5 mg-3 mg(2.5 mg base)/3 mL nebulizer solution 3 mL nebulization QID lidocaine (PF) 10 mg/mL (1 %) injection 2 mg intradermal PRN multivitamin (NEPHROVITE) 0.8 mg tablet 1 Tablet oral QHS nystatin (MYCOSTATIN) suspension 500,000 Units oral QID pantoprazole (PROTONIX) tablet 40 mg oral DAILY predniSONE (DELTASONE) tablet 40 mg oral DAILY Followed by [START ON 01/22/2024] predniSONE (DELTASONE) tablet 30 mg oral DAILY Followed by [START ON 01/29/2024] predniSONE (DELTASONE) tablet 20 mg oral DAILY Followed by [START ON 02/05/2024] predniSONE (DELTASONE) tablet 10 mg oral DAILY spironolactone (ALDACTONE) tablet 100 mg oral DAILY valACYclovir (VALTREX) tablet 500 mg oral DAILY venlafaxine (EFFEXOR-XR) XR capsule 75 mg oral DAILY zolpidem (AMBIEN) tablet 5 mg oral AT BEDTIME PRN Relevant Labs: Lab Results Component Value Date WBC 25.58 (H) 01/16/2024 RBC 2.27 (L) 01/16/2024 HGB 8.4 (L) 01/16/2024 HCT 25.1 (L) 01/16/2024 MCV 111 (H) 01/16/2024 MCH 37.0 (H) 01/16/2024 PLT 198 01/16/2024 NA 132 (L) 01/16/2024 K 3.9 01/16/2024 CL 92 (L) 01/16/2024 CO2 35 (H) 01/16/2024 BUN 22 01/16/2024 CREATININE 0.71 01/16/2024 GLUCOSEFINGE 96 12/13/2011 CALCIUM 8.7 01/16/2024 MG 2.2 01/14/2024 PHOS 3.8 01/14/2024 VITD 97 12/20/2023 Estimated Nutrition Needs: BEE: 1046kcal @ 54.4kg (MSJ) Kcal: 0193-7425 @ 25-30kcal/kg/bw Protein: 1.5-1.6L Fluid: 71-82g @ 1.3-1.5g/kg/bw Estimated Nutrition Intake: Not yet documented ASSESSMENT: RD Malnutrition Assessment Patient presents on admission with severe malnutrition in the context of chronic illness related todecreased PO intake 2/2 poor appetite and taste changes as evidenced by meeting <75% of energy requirements for >1 month, severe muscle and fat wasting. Pt w/ greatly improved appetite and PO intake, continue regular diet as ordered. Pt interested in alternative high calore supplement to Boost shakes, will try one of the Mighty Shakes. Again reviewedimportance of protein intake and not restricting herself too much in terms of her food/beverages choices, High risk for micronutrient/mineral deficiency, continue vitamins as ordered. Sodium level remains slightly low at this time, monitor lytes daily and replete as needed. Monitor PO intake and Bms. Strict I/Os and continue to trend wieght. Nutrition Risk Level: Moderate (2) MEDICAL NUTRITION THERAPY - UPDATED PLAN Diet as ordered - encourage PO intake and small frequent meals - ok for all high calorie/protein oral supplements 2. Vitamins as ordered 3. Daily lytes, replete as needed 4. Monitor PO intake and Bms 5. Strict I/Os 6. Trend weight BEN BENTLEY RD, CD (Call PAS or use [employer] ([employer]) to page RD covering this unit) * Tere Dc MD - 01/16/2024 1111 EDT INFECTIOUS DISEASES CONSULT SERVICE PROGRESS NOTE CHIEF COMPLAINT/ID: 63 yo with metastatic breast cancer and PJP Having a fever this AM. Subjective: feels like she was sucker-punched. Coughing now. Dyspnea is stable. +some abdominal pain REVIEW OF SYSTEMS: 10-point review of systems is negative except as mentioned above Please refer to the initial ID Consult Note obtained on 01/12/24 for Medical/Family/Social History. Ihjustin reviewed this information and there is no significant change from prior. Antibiotics: Atovaquone 01/12 - ongoing Prophylaxis: valacyclovir PHYSICAL EXAM: VS: BP 123/71 (BP Cuff Location: Left arm, BP Patient Position: Semi fowlers) Pulse (!) 120 Temp (!) 38.5 ??C (101.3 ??F) (Oral) Resp 20 Ht 154.9 cm (61) Wt 54.4 kg (120 lb) SpO2 94% BMI 22.67 kg/m?? GENL: NAD; thin/frail appearing EENT: semi-dry mucous membranes NECK: supple CHEST: port in place, site is nontender CV: tachy ABDM: soft, distended non-tender NEURO: awake PSYCH: non-anxious; tearful at times LABORATORY: Reviewed in detail in PRISM. WBC/RBC/HGB/HCT/PLT/ANC25.58/2.27/8.4/25.1/198/22.66 (01/15 0835) Cr 0.71 MICROBIOLOGY DATA: Reviewed in detail in PRISM. Pertinent for: 01/15 BCx: pending 01/15 urine cx: pending 01/11 BCx: NGTD 01/11 anaplasma/babesia: neg 01/10 BAL: PJP PCR 01/08 Strep pna/legionella: neg 01/07 FULL respir panel: neg IMAGING DATA: I have independently reviewed the available imaging. CXR: no obvious pneumonia ASSESSMENT/RECOMMENDATIONS: 63 yo with ER+ metastatic breast cancer and Pneumocystic jirovecii pneumonia. Profile complicated by sulfa intolerance (hives/rash). Would benefit from more conversations about code status and goals of care. -continue atovaquone (third line treatment for PJP but it is what is available to use right now in the context of sulfa challenge. Thank you for sending G6PD) -check another CLINICAL LABORATORY TECHNOLOGIST swab for Covid-19, flu, RSV given new fevers -agree with BCxs -low threshold to pursue CT abd/pelvis if her abdominal pain persists I have been in touch with the primary team about my recommendations. Please reach out by [employer] secure chat if additional questions arise. I spent a total of 60 minutes on the date of this encounter meeting with the patient and reviewing documentation/coordinating care as described in the above note. Tere Dc MD, MPH Infectious Disease * Pavan Bianchi MD - 01/16/2024 0751 EDT Pulmonary Progress Note Service Date: 01/16/2024 Admit Date: 01/08/2024 15:40 Reason for Consult: Hypoxemia Requesting Provider: Silverio Porter MD 24 Hour Events: Pt with fever overnight. Subjective/Objective Subjective Pt seen and examined. Pt with fever overnight and BAL positive for PJP yesterday. She does complainof some abdominal pain and leaking at the site of paracentesis. Her breathing has improved and with less O2 requirement still. Review of Systems A ten point review of systems was performed. Pertinent positives are listed above, all others are negative. Objective Vital Signs Temp: [36.8 ??C (98.2 ??F)-38.5 ??C (101.3 ??F)] , Heart Rate: [98 BPM-111 BPM] , Resp: [16-22] , BP: (96-123)/(55-71) , SpO2: [93 %-100 %] Physical Exam Gen: NAD appearing stated age, NAD, sitting in chair HENT: Normocephalic, atraumatic. Pupils round, equal and reactive. Lymph: No submandibular or supraclavicular lymphadenopathy CV: Regular, S1, S2, no murmurs Lungs: Symmetric chest expansion. Clear to auscultation bilaterally. No rales, rhonchi, or wheezing Abd: A little tending at the site of paracentesis Ext: No edema, clubbing or cyanosis Skin: Warm and dry; no rashes or lesions MSK: No joint deformity or warmth Neuro: AAOx3, non-focal Psych: appropriate, cooperative, pleasant Medications Reviewed Labs Reviewed: CBC: Recent Labs 01/14/24530 WBC 16.80* HGB 7.3* MCV 107* PLT 169 Electrolytes: Recent Labs 01/14/24 0531 01/15/24 0501/16/24 05 NA 131* 132* 132* K 3.9 3.7 3.9 CL 94* 93* 92* CO2 34* 36* 35* BUN 20 23 22 CREATININE 0.68 0.61 0.71 CALCGFR 98 101 96 MG 2.2 -- -- PHOS 3.8 -- -- CALCIUM 8.5 8.5 8.7 Coags: No results for input(s): INR, PROTIME, PTT in the last 72 hours. Hepatic function/Nutrition: No results for input(s): AST, ALT, ALKPHOS, TBIL, CONJBILI, UNCONJBILI, TP, LABALBU, LIPASE in the last 72 hours. Recent Labs 01/14/24 0531 WBC 16.80* RBC 2.01* HGB 7.3* HCT 21.5* MCV 107* MCH 36.3* MCHC 34.0 PLT 169 Recent Labs 01/14/24 0531 01/15/24 0529 01/16/24 0519 NA 131* 132* 132* K 3.9 3.7 3.9 CL 94* 93* 92* CO2 34* 36* 35* BUN 20 23 22 CREATININE 0.68 0.61 0.71 CALCIUM 8.5 8.5 8.7 MG 2.2 -- -- PHOS 3.8 -- -- No results for input(s): PROTIME, INR, PTT in the last 72 hours. No results for input(s): TBIL, ALKPHOS, AST, ALT, LIPASE, AMYLASE in the last 72 hours. No results for input(s): PHISTAT, PCOISTAT, POISTAT, POCTCO2, M2YIFMOE, POCFIO2 in the last 72 hours. No results for input(s): CK, MB, CKMBINDEX, TROPONINI in the last 72 hours. No results for input(s): HGBA1C in the last 72 hours. No results for input(s): TSH, FREET4 in the last 72 hours. No results for input(s): PREALBUMIN in the last 72 hours. No results for input(s): SEDRATE, CRP in the last 72 hours. No results for input(s): [id number], FOLATE in the last 72 hours. No results for input(s): RF, JODY, ANCA in the last 72 hours. No results for input(s): IGG, IGA, IGM, IGE in the last 72 hours. Micro: No results found for this or any previous visit (from the past 24 hour(s)). Imaging Reviewed: I have independently visualized images XR CHEST 2 VIEWS Result Date: 01/16/2024 1. No acute abnormality. 2. Improving bilateral linear atelectasis. 3. Right chest port and catheter. I have personally reviewed the images and the above interpretation and agree with the findings. [id number] . 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 CT with new grand glass opacities. Differential includes trastuzumab- induced interstitial pneumonitis vs. infection. Bronchoscopy indicated for further diagnostic clarification. Patient underwent bronchoscopy 01/11/2024 and after the procedure there is concern for possible infectious etiology. BAL so far has been negative for any acute infection however itis still early and her fluid and neutrophil lymphocyte positive. Patient was found to have an elevated Fungitell greater than 500 and she is not currently on medications that would lead to a false positive. With her underlying disease process there is obviously concern of fungal infection leading to her presentation and for this reason we have asked her primary team to discuss with infectious disease if there are any further studies that we can send out or should we obtain Aspergillus IgE. Karen bazan is immunosuppressed and has been on prednisone 50 mg so if this was the raised fungal infection she would worsen but right now is stable. Due to there being less concern of pneumonitis we will do a quicker taper of the prednisone and have repeat imaging performed. Pt with elevated fungitell and ID has been consulted who have added additional testing. Pt positivefor PJP on BAL PCR. Pt with fever overnight and some tachycardia but her O2 requirement and breathing have improved. Pt with some pain at the site of abdominal paracentesis. Recommendations - Atovaquone 750mg BID and if issues with this regimen could consider primaquine/clindamycin -Adjunctive corticosteroids in malignancy there are varying results and scarce RCT to show benefit and most studies show shorter ICU stays/vents but no statiscally sig survival benefit however she has improved slightly and due to this will continue patient on prednisone but will complete 21 days total instead of the 6 wk taper we had described prior. ( Luis and Cecily 30 and Mady et al and meta-analysis) 1. Continue with prednisone 40mg po tab day for 5 more days and then drop down to 20mg po tab qday for 10 days then stop as she was 50mg po tab qday for at 5-7 days prior. - FU with pulmonary clinic in 6-8 wk to make sure improvement of SOB and cough. Will hold off on CTscan and PFTs at this time until we see her in clinic - Cont with nebulizer therapy - Monitor fever curve and would benefit from further w/u of other etiologies of infection ( Bcx, UA, viral and patient is having ab pain ) Patient seen and discussed with Dr. Bianchi. Leopoldo Saldana MD Pulmonary Critical Care Medicine, PGY-4 Available on [facility] 01/16/2024 7:51 Attestation statement: I performed or was present during the knight or critical portions of the visit and participated in the management of the patient. I agree with the findings and plan of care documented in the resident's/fellow's note. PJP noted. Would treat as currently doing and we will see patient in follow up in pulmonary clinic. Pavan Bianchi MD * Deja Mccloud, RT - 01/16/2024 0715 EDT Respiratory Consult/Progress Note Indications for Respiratory therapy: SOB, Hypoxia Data Vitals: Heart Rate: (!) 110 BPM, Resp: 22, SpO2: 93 % FIO2/O2 Device: O2 Flow Rate (L/min): 2 l/min, , O2 Device: Nasal cannula, FIO2 %: 32 % RT Orders: Duoneb- QID Protocol Scoring: Bronchodilator/Inhalation Therapy Frequency Bronchodilator - Clinical Indications: LIP order Breath Sounds: Clear Response: No change / no treatment Pulse: >100 Resp Rate: 18-25 SOB: With exertion Total Score: 3 Comment:: QID Per patient request Frequency Based On Total Score: 0-4 = PRN 5-7 = QID 8-10 = Q4H 11-12 = Q2H Airway Clearance Therapy Frequency Airway Clearance - Clinical Indications: No clinical indications Breath Sounds: Clear / diminished Sputum: Small (tsp) / None Consistency: None Cough Effort: Strong/ non-productive Color: Clear / white Total Score: 0 Comment: PRN Frequency Based On Total Score: 0-3 = PRN 4-6 = QID and PRN 7-9 = Q4H and PRN 10-11 = Q2H and PRN Hyperinflation Therapy Frequency Hyperinflation - Clinical Indications: Prevent atelectasis Breath Sounds: Diminished / crackles Surgery: No X-Ray / Atelectasis: No O2 Requirements: 0-2 L above baseline Mobility Status: Mobile / at baseline Total: 3 Comment: PRN Frequency Based On Total Score: 0-3 = PRN 4-6 = QID and PRN 7-9 = Q4H and PRN 10-12 = Q2H and PRN Action/Events Respiratory events; 0817- Patient was very tired and had trouble with staying awake to complete treatment. Patient completed Duoneb treatment. Patient was to tired to do IS. Patient is on 2LNC. 1151- Patient was much more alert and oriented. Patient completed duoneb treatment and 8 breaths onIS getting up to 1300 mL with very good effort. Patient on 2LNC. Response/Results Weaning and Toleration of treatments; 0817- Patient tolerated treatment well with no weaning. 1151- Patient tolerated treatment well with no weaning. RT ZARA 01/16/24 * Brenda Ceja RN - 01/15/2024 1832 EDT D: Sunshine is a 63 y.o. woman being treated for PJP in the setting of metastatic breast cancer. A: Weaned oxygen down as tolerated. R: On room air at rest. Sendy was able to ambulate 500 feet and maintain SaO2 above 90% on O2 2L/min. * Natividad Guerrero RT - 01/15/2024 1057 EDT Respiratory Consult/Progress Note Indications for Respiratory therapy: Hypoxia Data Vitals: Heart Rate: 98 BPM, Resp: 18, SpO2: 100 % FIO2/O2 Device: O2 Flow Rate (L/min): 1 l/min, O2 Device: Nasal cannula RT Orders: QID Duoneb Protocol Scoring: Bronchodilator/Inhalation Therapy Frequency Bronchodilator - Clinical Indications: LIP order Breath Sounds: Clear Response: No change / no treatment Pulse: >100 Resp Rate: 18-25 SOB: With exertion Total Score: 3 Comment:: QID Per patient request Frequency Based On Total Score: 0-4 = PRN 5-7 = QID 8-10 = Q4H 11-12 = Q2H Airway Clearance Therapy Frequency Airway Clearance - Clinical Indications: No clinical indications Breath Sounds: Clear / diminished Sputum: Small (tsp) / None Consistency: None Cough Effort: Strong/ non-productive Color: None Total Score: 0 Comment: PRN Frequency Based On Total Score: 0-3 = PRN 4-6 = QID and PRN 7-9 = Q4H and PRN 10-11 = Q2H and PRN Hyperinflation Therapy Frequency Hyperinflation - Clinical Indications: Prevent atelectasis Breath Sounds: Diminished / crackles Surgery: No X-Ray / Atelectasis: No O2 Requirements: 0-2 L above baseline Mobility Status: Mobile / at baseline Total: 3 Comment: PRN Frequency Based On Total Score: 0-3 = PRN 4-6 = QID and PRN 7-9 = Q4H and PRN 10-12 = Q2H and PRN Action/Events Respiratory events; 0825- Patient on 1 L NC, easily aroused when I went in to give tx. Breath sounds were clear with good aeration bilaterally. Tx given with no adverse reactions. RT SHONDA 01/15/24 * Kaylah Najera MD - 01/15/2024 0741 EDT Medical Oncology Progress Note Service Date: 01/15/24 Admit Date: 01/08/2024 Reason for Admission: 63 y.o. female admitted with hx of metastatic breast cancer with resultant portal hypertension from liver metastases who presented with a chief complaint of Acute on subacute dyspnea and now with a principal diagnosis of drug-induced pneumonitis versus PJP pneumonia. 24 Hour Events: ELLE Subjective/Objective Subjective Doing well except lost her voice overnight after having multiple visitors yesterday. Slept well andtook zolpidem last night. Used zolpidem to sleep through severe cramps. Breathing stable. Independently ambulating in room and able to shower independently. Bicarb up trending and patient amendable to decreasing Lasix dose. Feels thrush is improving. Patient remains positive despite trials. Best friend visiting today who is experienced with oxygen tanks. Review of Systems A ten point review of systems was performed and was negative except for pertinentpositives noted above. Objective Vital Signs Temp: [36.6 ??C (97.9 ??F)-36.9 ??C (98.4 ??F)] , BP: (83-128)/(59-71) , Heart Rate: [96 BPM-111 BPM] , SpO2: [94 %-100 %] , Resp: [18] Physical Exam GEN: alert, pleasant, in NAD, HEENT: EOMi, nasal cannula in place on 3 L, anicteric sclera, voice hoarse with decreased volume, oral mucosa moist without erythema. No thrush appreciated to bilateral buccal mucosa some lingually on tongue or posterior oropharynx. No ulcerations appreciated in the oral cavity. ABD: Non distended. Nontender. No fluid shift EXT: ROM intact, patient walking around room. Extremities warm well-perfused. Edema to right foot. Calves Nontender to squeeze bilaterally. No pitting edema present. Pulses palpable in bilateral lower extremities 2+. NEURO: AOx3, no focal deficit PSYCH: appropriate affect for current situation Is PICC or central line present? Yes, it is still present. The line is still required. Port present Medications Reviewed Labs Reviewed Results for orders placed or performed during the hospital encounter of 01/08/24 (from the past 24 hour(s)) BASIC METABOLIC PANEL (BMP) Result Value Ref Range Sodium 132 (L) 136 - 145 mmol/L Potassium 3.7 3.5 - 5.0 mmol/L Chloride 93 (L) 96 - 110 mmol/L CO2 Total 36 (H) 22 - 32 mmol/L Anion Gap 3 (L) 5 - 14 mmol/L Glucose 93 70 - 99 mg/dl Calcium 8.5 8.5 - 10.5 mg/dL BUN 23 10 - 26 mg/dL Creatinine 0.61 0.52 - 1.04 mg/dL eGFR 101 >60 mL/min/1.73m2 *Note: Due to a large number of results and/or encounters for the requested time period, some results have not been displayed. A complete set of results can be found in Results Review. Micro Reviewed Imaging Reviewed Assessment/Plan Assessment Sunshine Subramanian is a 63 y.o. female with a PMHx significant for metastatic ER+ breast cancer(mets to liver c/b portal HTN, lymphadenopathy, bony mets), UE thrombus and PE on Eliquis who presented with dyspnea/hypoxia on 01/07 initially thought to be 2/2 Enhertu-mediated pneumonitis but now s/p bronchoscopy on 01/10 now with positive fungitell. Infectious disease consulted and concern for PJP pneumonia. 01/14 bronc culture positive for PJP pneumonia. Patient remains stable 01/14 with improved to borderline resolved thrush, persistent shortness of breath but able to independently care for self within room and no new symptoms or signs of fever. Laboratory studies stable except for trending up bicarb concerning for volume contraction alkalosis. Plan to decrease Lasix to GROWTH HACKER dose to combat this along with hoping decreased fluid shifts may improve extremity cramping. HD 7: -Fluconazole x 7 days - Continue atovaquone - Decrease Lasix to 20 mg from 40 mg daily - Touch base with infectious disease 01/15 regarding duration of time needed to monitor patient in the hospital for infection - Will need 6-minute oxygen walk test 01/15 - Confirm with pulmonary medicine no additional treatment needed now that PJP confirmatory positive - Prednisone taper starts 01/14 with 40 mg - Follow-up with ID regarding antibiotic duration - Patient unlikely to need paracentesis earlier this week but possibly will if discharge is later Monitoring while on atovaquone. Plan Acute hypoxic respiratory failure PJP pneumonia P/w progressive SOB for several months and worsening over the month of December, started Enhertu 12/[address]GO on CT. Bronchoscopy 01/10 w/ positive Fungitell with further labs and Micro pending. BAL positive for PJP. Patient already on treatment. Respiratory status stable still requiring supplemental support. - Prednisone to drop to 40mg 01/14, then taper by 10mg every 7 days to off - Continue GROWTH HACKER valtrex 500mg daily ppx (initially prescribed iso home prednisone) - f/u G6PD ordered - Cryptococcal antigen pending - Home oxygen evaluation will need to be repeated 01/14- may need oxymizer. Needs pediatric nasal cannula on discharge - Pulm consulted, appreciate recs - follow up in 6 weeks with PFTs and CT chest (week of 02/11) -Prednisone taper - Referral to palliative as outpatient - Consult ID, appreciate recs as below: [ x] Urine histo, Serum histo, Aspergillus, BC X 2, Anaplasma/Ehrlichia PCR , CLINICAL LABORATORY TECHNOLOGIST swab Mycoplasma pneumonia Atovaquone PO 750 mg BID (01/12- ) -Follow-up atovaquone duration -Touch base regarding duration of time needed to monitor patient in hospital for infection and treatment Thrush Present on exam initially and BAL/bronc. Significantly improved to borderline resolved 01/14. Will finish out treatment. - nystatin swish and spit, continue x 7 days minimum - Pooja on BAL likely contaminant from this, not consistent with Candidal infection on review with ID Metastatic breast cancer Portal hypertension with ascites 2/2 liver mets Acute on Chronic malignant ascites. Continues to require paracentesis for comfort. Most recent 01/11. - Lasix 20 mg daily starting 01/15 (monitor potential contraction alkalosis on BMP) - Home spironolactone 100mg daily - IR para order outpatient placed, Sendy and her have been thinking about potential peritoneal drains - will need to loop in oncologist to further conversation outpatient - Patient will notify team few days prior to thinking she needs paracentesis in case additional para needed prior to discharge Chronic pain, Cancer Related Chronic muscle spasms Mood disorder Acute on chronic muscle cramps. No electrolyte abnormalities, may be related to fluid shifts with diuresis, ?restless legs and iron deficiency component - continue GROWTH HACKER gabapentin 300mg in the morning and afternoon, 600mg at bedtime. - continue flexeril 5mg BID prn - continue GROWTH HACKER venlafaxine 75mg daily - GROWTH HACKER Zolpidem reordered for difficulty sleeping secondary to cramps - Okay for spot doses of IV Dilaudid for severe pain - Follow-up leg cramps status post decreased Lasix dose RUE DVT and PE Dx 11/09/23 - Resumed GROWTH HACKER Eliquis 01/11 CHECKLIST: L/D/A: Chest port, nasal cannula Diet: Regular Diet Code: Full Code VTE Prophylaxis apixaban Discharge Plan Will need to loop back with ID Tuesday, but anticipate likely DC Tuesday if remains stable and will need home O2 Consults Pulmonology, respiratory therapy and infectious disease appreciate recs KAYLAH YOUNG MD 01/15/2024 7:41 Internal Medicine Associated attestation - Masha Russell MD - 01/16/2024 0943 EDT Attending Attestation I interviewed and examined the patient. I have personally reviewed interval events, laboratory data, and imaging. I discussed the case with the inpatient resident team. I agree with findings and planof care as documented by the resident (or have edited in blue). Some hoarse voice today. Breathing about the same. Doesn't feel like much ascites has regained yet.Still ongoing cramping. More alkalotic on labs, likely reflective of overdiuresis, will decrease furosemide back to GROWTH HACKER 20mg for tomorrow - though do then lose 5:2 ratio. Otherwise need to close loopwith ID in AM about length of monitoring on treatment. BAL resulted positive for PJP today. Anticipate repeat home O2 eval tomorrow and coordination of oxygen needs with dispo tomorrow vs 01/16 pendingID input and coordination of oxygen. Rest of detailed plan and assessment as per below. Documentation and notation for evaluation of patient on 01/15/24. Masha Russell MD Hospitalist Physician 01/16/24 at 9:42 * Pavan Bianchi MD - 01/14/2024 1202 EDT Pulmonary Progress Note Service Date: 01/14/2024 Admit Date: 01/08/2024 15:40 Reason for Consult: Hypoxemia Requesting Provider: Masha Russell MD 24 Hour Events: No events overnight Subjective/Objective Subjective Pt is requiring 2L at rest and 6L with exertion. Doing well with her friends visiting. Review of Systems A ten point review of systems was performed. Pertinent positives are listed above, all others are negative. Objective Vital Signs Temp: [36.7 ??C (98 ??F)-37 ??C (98.6 ??F)] , Heart Rate: [62 BPM-112 BPM] , Resp: [16-18] , BP: (119-148)/(71-76) , SpO2: [94 %-100 %] Physical Exam Gen: NAD appearing stated age, NAD, sitting in chair HENT: Normocephalic, atraumatic. Pupils round, equal and reactive. Lymph: No submandibular or supraclavicular lymphadenopathy CV: Regular, S1, S2, no murmurs Lungs: Symmetric chest expansion. Clear to auscultation bilaterally. No rales, rhonchi, or wheezing Abd: Soft, non-distended, normoactive bowel sounds, non-tender Ext: No edema, clubbing or cyanosis Skin: Warm and dry; no rashes or lesions MSK: No joint deformity or warmth Neuro: AAOx3, non-focal Psych: appropriate, cooperative, pleasant Medications Reviewed Labs Reviewed: CBC: Recent Labs 01/12/2453201/12/24194301/14/24 0531 WBC 13.29* 17.78* 16.80* NEUTROABS -- 15.47* -- HGB 7.4* 8.1* 7.3* MCV 107* 106* 107* PLT 163 193 169 Electrolytes: Recent Labs 01/12/2453201/12/24194301/14/24 0531 NA 134* 134* 131* K 4.1 3.6 3.9 CL 102 99 94* CO2 27 25 34* BUN 23 17 20 CREATININE 0.54 0.59 0.68 CALCGFR 104 102 98 MG 2.5 2.1 2.2 PHOS 3.5 3.6 3.8 CALCIUM 8.9 8.1* 8.5 CAION 1.20 -- -- Coags: No results for input(s): INR, PROTIME, PTT in the last 72 hours. Hepatic function/Nutrition: No results for input(s): AST, ALT, ALKPHOS, TBIL, CONJBILI, UNCONJBILI, TP, LABALBU, LIPASE in the last 72 hours. Recent Labs 01/12/2453201/12/24194301/14/24 0531 WBC 13.29* 17.78* 16.80* RBC 2.07* 2.29* 2.01* HGB 7.4* 8.1* 7.3* HCT 22.2* 24.3* 21.5* MCV 107* 106* 107* MCH 35.7* 35.4* 36.3* MCHC 33.3 33.3 34.0 PLT 163 193 169 NEUTROABS -- 15.47* -- Recent Labs 01/12/24 0533 01/12/24 1944 01/14/24 0531 NA 134* 134* 131* K 4.1 3.6 3.9 CL 102 99 94* CO2 27 25 34* BUN 23 17 20 CREATININE 0.54 0.59 0.68 CALCIUM 8.9 8.1* 8.5 CAION 1.20 -- -- MG 2.5 2.1 2.2 PHOS 3.5 3.6 3.8 No results for input(s): PROTIME, INR, PTT in the last 72 hours. No results for input(s): TBIL, ALKPHOS, AST, ALT, LIPASE, AMYLASE in the last 72 hours. No results for input(s): PHISTAT, PCOISTAT, POISTAT, POCTCO2, [id number], POCFIO2 in the last 72 hours. No results for input(s): CK, MB, CKMBINDEX, TROPONINI in the last 72 hours. No results for input(s): HGBA1C in the last 72 hours. No results for input(s): TSH, FREET4 in the last 72 hours. No results for input(s): PREALBUMIN in the last 72 hours. No results for input(s): SEDRATE, CRP in the last 72 hours. No results for input(s): [id number], FOLATE in the last 72 hours. No results for input(s): RF, JODY, ANCA in the last 72 hours. No results for input(s): IGG, IGA, IGM, IGE in the last 72 hours. Micro: No results found for this or any previous visit (from the past 24 hour(s)). Imaging Reviewed: I have independently visualized images No results found.. 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 CT with new grand glass opacities. Differential includes trastuzumab- induced interstitial pneumonitis vs. infection. Bronchoscopy indicated for further diagnostic clarification. Patient underwent bronchoscopy 01/11/2024 and after the procedure there is concern for possible infectious etiology. BAL so far has been negative for any acute infection however itis still early and her fluid and neutrophil lymphocyte positive. Patient was found to have an elevated Fungitell greater than 500 and she is not currently on medications that would lead to a false positive. With her underlying disease process there is obviously concern of fungal infection leading to her presentation and for this reason we have asked her primary team to discuss with infectious disease if there are any further studies that we can send out or should we obtain Aspergillus IgE. Karen bazan is immunosuppressed and has been on prednisone 50 mg so if this was the raised fungal infection she would worsen but right now is stable. Due to there being less concern of pneumonitis we will do a quicker taper of the prednisone and have repeat imaging performed. Pt with elevated fungitell and ID has been consulted who have added additional testing. Pt is stable from a pulmonary stand point and would continue the taper as prescribed below. Recommendations - ID for further management of elevated fungitell and started on atovaquone empirically - Steroid taper plan 1. Prednisone 50mg for 1 wk and after this for the next 5 wks please continue to drop down by 10mg every week. You can drop her down to 40mg starting today and continue with above taper. 2. Huron taper due to less concern for pneumonitis 3. At the 6 wk irish would obtain a CT scan of the chest to see if any resolution of GGO 4. Pulmonary clinic f/u in 6-8wks with a planned repeat CT scan and 6 minute walk test - Will f/u Pneumocytisis in BAL and other studies. ( Fungal) - Would repeat 6MWT on NC as now she is requiring less O2 - Cont with nebulizer therapy - Will f/u with BAL cultures and send out tests Patient seen and plan discussed with Dr. Tash Saldana MD Pulmonary Critical Care Medicine, PGY-4 Available on [facility] 01/14/2024 12:03 Attestation statement: I performed or was present during the knight or critical portions of the visit and participated in the management of the patient. I agree with the findings and plan of care documented in the resident's/fellow's note. Feeling better. Monitoring BAL results. Pavan Bianchi MD * Natividad Guerrero, RT - 01/14/2024 0951 EDT Respiratory Consult/Progress Note Indications for Respiratory therapy: Exertional Dyspnea Data Vitals: Heart Rate: 105 BPM, Resp: 18, SpO2: 100 % FIO2/O2 Device: O2 Flow Rate (L/min): 2 l/min, , O2 Device: Nasal cannula RT Orders: QID Duoneb Protocol Scoring: Bronchodilator/Inhalation Therapy Frequency Bronchodilator - Clinical Indications: LIP order Breath Sounds: Clear Response: No change / no treatment Pulse: >100 Resp Rate: 18-25 SOB: With exertion Total Score: 3 Comment:: QID Per patient request Frequency Based On Total Score: 0-4 = PRN 5-7 = QID 8-10 = Q4H 11-12 = Q2H Airway Clearance Therapy Frequency Airway Clearance - Clinical Indications: No clinical indications Breath Sounds: Clear / diminished Sputum: Small (tsp) / None Consistency: None Cough Effort: Strong/ non-productive Color: None Total Score: 0 Comment: PRN Frequency Based On Total Score: 0-3 = PRN 4-6 = QID and PRN 7-9 = Q4H and PRN 10-11 = Q2H and PRN Hyperinflation Therapy Frequency Hyperinflation - Clinical Indications: Prevent atelectasis Breath Sounds: Clear Surgery: No X-Ray / Atelectasis: No O2 Requirements: 2-4 L above baseline Mobility Status: Mobile / at baseline Total: 2 Comment: PRN Frequency Based On Total Score: 0-3 = PRN 4-6 = QID and PRN 7-9 = Q4H and PRN 10-12 = Q2H and PRN Action/Events Respiratory events; Patient resting in bed after just walking around room/showing. Breath sounds were clear with good aeration bilaterally. Tx given with no adverse reactions. NATIVIDAD GUERRERO, RT 01/14/24 * Michelle Emery DO - 01/14/2024 0725 EDT Medical Oncology Progress Note Service Date: 01/14/24 Admit Date: 01/08/2024 Reason for Admission: 63 y.o. female admitted with hx of metastatic breast cancer with resultant portal hypertension from liver metastases who presented with a chief complaint of Acute on subacute dyspnea and now with a principal diagnosis of drug-induced pneumonitis versus PJP pneumonia. 24 Hour Events: NAEON Subjective/Objective Subjective Doing well this morning. Interested in staying her friends and family come by this afternoon. No acute questions or concerns. Review of Systems A ten point review of systems was performed and was negative except for pertinentpositives noted above. Objective Vital Signs Temp: [36.7 ??C (98 ??F)-37 ??C (98.6 ??F)] , BP: (119-148)/(71-76) , Heart Rate: [62 BPM-112 BPM] , SpO2: [94 %-100 %] , Resp: [16-18] Physical Exam GEN: alert, pleasant, in NAD, lack of white plaques on oropharynx HEENT: EOMi, nasal cannula in place on 3 L, anicteric sclera ABD: Non distended EXT: ROM intact, patient walking around room. NEURO: AOx3, no focal deficit PSYCH: appropriate affect for current situation Is PICC or central line present? Yes, it is still present. The line is still required. Port present Medications Reviewed Labs Reviewed Results for orders placed or performed during the hospital encounter of 01/08/24 (from the past 24 hour(s)) COMPLETE BLOOD COUNT Result Value Ref Range WBC 16.80 (H) 4.00 - 12.40 K/cmm RBC 2.01 (L) 3.86 - 5.04 M/cmm Hemoglobin 7.3 (L) 11.6 - 15.2 g/dL HCT 21.5 (L) 34.9 - 44.4 % MCV 107 (H) 81 - 98 fL MCH 36.3 (H) 26.7 - 33.3 pg MCHC 34.0 32.1 - 35.9 g/dL RDW-CV 22.7 (H) <14.7 % RDW-SD 87.8 (H) <50.4 fl PLT 169 141 - 377 K/cmm MPV 10.5 9.5 - 12.7 fL Nucleated Red Blood Cells 1 (H) <=0 /100WBC'S MAGNESIUM Result Value Ref Range Magnesium 2.2 1.7 - 2.8 mg/dL BASIC METABOLIC PANEL (BMP) Result Value Ref Range Sodium 131 (L) 136 - 145 mmol/L Potassium 3.9 3.5 - 5.0 mmol/L Chloride 94 (L) 96 - 110 mmol/L CO2 Total 34 (H) 22 - 32 mmol/L Anion Gap 3 (L) 5 - 14 mmol/L Glucose 107 (H) 70 - 99 mg/dl Calcium 8.5 8.5 - 10.5 mg/dL BUN 20 10 - 26 mg/dL Creatinine 0.68 0.52 - 1.04 mg/dL eGFR 98 >60 mL/min/1.73m2 PHOSPHORUS Result Value Ref Range Phosphorus 3.8 2.5 - 4.5 mg/dL *Note: Due to a large number of results and/or encounters for the requested time period, some results have not been displayed. A complete set of results can be found in Results Review. Micro Reviewed Imaging Reviewed Assessment/Plan Assessment Sunshine Subramanian is a 63 y.o. female with a PMHx significant for metastatic ER+ breast cancer(mets to liver c/b portal HTN, lymphadenopathy, bony mets), UE thrombus and PE on Eliquis who presented with dyspnea/hypoxia on 01/07 initially thought to be 2/2 Enhertu-mediated pneumonitis but now s/p bronchoscopy on 01/10 now with positive fungitell. Infectious disease consulted and concern for PJP pneumonia. Suspect presentation and prodrome more consistnet with PJP pneumonia and less likely Trastuzumab pneumonitis. Monitoring while on atovaquone. Plan Acute hypoxic respiratory failure Enhertu-mediated pneumonitis vs infectious (Fungitell+) P/w progressive SOB for several months and worsening over the month of december, started Erhertu 12/[address]. Bronchoscopy 01/10 w/ positive Fungitell with further labs and Micro pending. Concern at this time for PJP pneumonia. - Prednisone to drop to 40mg tomorrow, then taper by 10mg every 7 days to off - Continue GROWTH HACKER valtrex 500mg daily ppx (initially prescribed iso home prednisone) - f/u G6PD ordered - Cryptococcal antigen pending - Home oxygen evaluation will need to be repeated on discharge day - may need oxymizer. She is currently using a pediatric nasal canula and will need a pediatric nasal canula on discharge. - Pulm consulted, appreciate recs - follow up in 6 weeks with PFTs and CT chest (week of 02/11) - Referral to palliative as outpatient - Consult ID, appreciate recs as below: [ x] Urine histo, Serum histo, Aspergillus, BC X 2, Anaplasma/Ehrlichia PCR , CLINICAL LABORATORY TECHNOLOGIST swab Mycoplasma pneumonia Atovaquone PO 750 mg BID (01/12- ) Thrush - nystatin swish and spit - Pooja on BAL likely contaminant from this, not consistent with Candidal infection on review with ID Metastatic breast cancer Portal hypertension with ascites 2/ liver mets Acute on Chronic malignant ascites. Continues to require paracentesis for comfort. Most recent 01/11. - Lasix 40mg daily (monitor potential contraction alkalosis on BMP) - Home spironolactone 100mg daily - IR para order outpatient placed, Sendy and her have been thinking about potential peritoneal drains - will need to loop in oncologist to further conversation outpatient Chronic pain, Cancer Related Chronic muscle spasms Mood disorder Acute on chronic muscle cramps. No electrolyte abnormalities, may be related to fluid shifts with diuresis, ?restless legs and iron deficiency component - continue GROWTH HACKER gabapentin 300mg in the morning and afternoon, 600mg at bedtime. - continue flexeril 5mg BID prn - continue GROWTH HACKER venlafaxine 75mg daily - GROWTH HACKER Zolpidem reordered for difficulty sleeping secondary to cramps - Okay for spot doses of IV Dilaudid for severe pain RUE DVT and PE Dx 11/09/23 - Resumed GROWTH HACKER Eliquis 01/11 CHECKLIST: L/D/A: Chest port, nasal cannula Diet: Regular Diet Code: Full Code VTE Prophylaxis apixaban Discharge Plan Will need to loop back with ID Tuesday, but anticipate likely DC Tuesday if remains stable and will need home O2 Consults Pulmonology, Appreciate recs MICHELLE EMERY DO 01/14/2024 7:25 Internal Medicine Associated attestation - Masha Russell MD - 01/14/2024 3806 EDT Attending Attestation I interviewed and examined the patient. I have personally reviewed interval events, laboratory data, and imaging. I discussed the case with the inpatient resident team. I agree with findings and planof care as documented by the resident (or have edited in blue). Masha Russell MD Hospitalist Physician 01/14/24 at 17:08 * Leopoldo Saldana - 01/13/2024 1723 EDT Pulmonary Progress Note Service Date: 01/13/2024 Admit Date: 01/08/2024 15:40 Reason for Consult: Hypoxemia Requesting Provider: Masha Russell MD 24 Hour Events: No new events Subjective/Objective Subjective Pt seen and examined. On 4L in no distress Review of Systems A ten point review of systems was performed. Pertinent positives are listed above, all others are negative. Objective Vital Signs Temp: [36.6 ??C (97.9 ??F)-36.9 ??C (98.4 ??F)] , Heart Rate: [103 BPM-112 BPM] , Resp: [16-22] , BP: (96-148)/(52-102) , SpO2: [90 %-100 %] Physical Exam Gen: NAD appearing stated age, NAD, sitting in chair HENT: Normocephalic, atraumatic. Pupils round, equal and reactive. Lymph: No submandibular or supraclavicular lymphadenopathy CV: Regular, S1, S2, no murmurs Lungs: Symmetric chest expansion. Clear to auscultation bilaterally. No rales, rhonchi, or wheezing Abd: Soft, non-distended, normoactive bowel sounds, non-tender Ext: No edema, clubbing or cyanosis Skin: Warm and dry; no rashes or lesions MSK: No joint deformity or warmth Neuro: AAOx3, non-focal Psych: appropriate, cooperative, pleasant Medications Reviewed Labs Reviewed: CBC: Recent Labs 01/11/24 0614 01/12/24 0533 01/12/24 194 WBC 15.81* 13.29* 17.78* NEUTROABS -- -- 15.47* HGB 7.6* 7.4* 8.1* MCV 106* 107* 106* PLT 232 163 193 Electrolytes: Recent Labs 01/12/24 0533 01/12/241943 NA 134* 134* K 4.1 3.6 CL 102 99 CO2 27 25 BUN 23 17 CREATININE 0.54 0.59 CALCGFR 104 102 MG 2.5 2.1 PHOS 3.5 3.6 CALCIUM 8.9 8.1* CAION 1.20 -- Coags: No results for input(s): INR, PROTIME, PTT in the last 72 hours. Hepatic function/Nutrition: Recent Labs 01/11/24 0800 AST 69* ALT 50* ALKPHOS 312* TBIL 1.2 CONJBILI 0.0 UNCONJBILI 0.6 TP 5.3* LABALBU 2.5* Recent Labs 01/11/24 0614 01/12/2453201/12/241943 WBC 15.81* 13.29* 17.78* RBC 2.17* 2.07* 2.29* HGB 7.6* 7.4* 8.1* HCT 22.9* 22.2* 24.3* MCV 106* 107* 106* MCH 35.0* 35.7* 35.4* MCHC 33.2 33.3 33.3 PLT 232 163 193 NEUTROABS -- -- 15.47* Recent Labs 01/11/24 0801/12/2453201/12/241943 NA 133* 134* 134* K 4.6 4.1 3.6 CL 98 102 99 CO2 26 27 25 BUN 21 23 17 CREATININE 0.59 0.54 0.59 CALCIUM 8.7 8.9 8.1* CAION -- 1.20 -- MG 2.3 2.5 2.1 PHOS -- 3.5 3.6 LABALBU 2.5* -- -- No results for input(s): PROTIME, INR, PTT in the last 72 hours. Recent Labs 01/11/24 0800 TBIL 1.2 ALKPHOS 312* AST 69* ALT 50* No results for input(s): PHISTAT, PCOISTAT, POISTAT, POCTCO2, U0ESLWVI, POCFIO2 in the last 72 hours. No results for input(s): CK, MB, CKMBINDEX, TROPONINI in the last 72 hours. No results for input(s): HGBA1C in the last 72 hours. No results for input(s): TSH, FREET4 in the last 72 hours. No results for input(s): PREALBUMIN in the last 72 hours. No results for input(s): SEDRATE, CRP in the last 72 hours. Recent Labs 01/11/24 0800 [id number] 1,574* FOLATE >24.0 No results for input(s): RF, JODY, ANCA in the last 72 hours. No results for input(s): IGG, IGA, IGM, IGE in the last 72 hours. Micro: No results found for this or any previous visit (from the past 24 hour(s)). Imaging Reviewed: I have independently visualized images No results found.. 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 CT with new grand glass opacities. Differential includes trastuzumab- induced interstitial pneumonitis vs. infection. Bronchoscopy indicated for further diagnostic clarification. Patient underwent bronchoscopy 01/11/2024 and after the procedure there is concern for possible infectious etiology. BAL so far has been negative for any acute infection however itis still early and her fluid and neutrophil lymphocyte positive. Patient was found to have an elevated Fungitell greater than 500 and she is not currently on medications that would lead to a false positive. With her underlying disease process there is obviously concern of fungal infection leading to her presentation and for this reason we have asked her primary team to discuss with infectious disease if there are any further studies that we can send out or should we obtain Aspergillus IgE. Karen bazan is immunosuppressed and has been on prednisone 50 mg so if this was the raised fungal infection she would worsen but right now is stable. Due to there being less concern of pneumonitis we will do a quicker taper of the prednisone and have repeat imaging performed. Pt with elevated fungitell and ID has been consulted who have added additional testing. Pt is stable from a pulmonary stand point and would continue the taper as prescribed below. Recommendations - ID for further management of elevated fungitell and started on atovaquone empirically - Steroid taper plan 1. Prednisone 50mg for 1 wk and after this for the next 5 wks please continue to drop down by 10mg every week. You can drop her down to 40mg starting today and continue with above taper. 2. Huron taper due to less concern for pneumonitis 3. At the 6 wk irish would obtain a CT scan of the chest to see if any resolution of GGO 4. Pulmonary clinic f/u in 6-8wks with a planned repeat CT scan and 6 minute walk test - Will f/u Pneumocytisis in BAL and other studies. ( Fungal) - Would repeat 6MWT on NC and see how much she needs so we can properly figure out concentrator max. - Cont with nebulizer therapy - Will f/u with BAL cultures and send out tests Patient seen and plan discussed with Dr. Logan. Leopoldo Saldana MD Pulmonary Critical Care Medicine, PGY-4 Available on [facility] 01/13/2024 17:23 Associated attestation - Chelsea Logan MD - 01/17/2024 1031 EDT Attestation: I performed or was present during the knight or critical portions of the visit and participated in the management of the patient on 01/13/24. I agree with the findings and plan of care as documented in the resident's/fellow's note. Chelsea Logan MD 01/17/2024 10:31 * Natividad Guerrero, RT - 01/13/2024 1421 EDT Respiratory Consult/Progress Note Indications for Respiratory therapy: Exertional Dyspnea Data Vitals: Heart Rate: (!) 112 BPM, Resp: 16, SpO2: 96 % FIO2/O2 Device: O2 Flow Rate (L/min): 3 l/min, , O2 Device: Nasal cannula RT Orders: QID Duoneb Protocol Scoring: Bronchodilator/Inhalation Therapy Frequency Bronchodilator - Clinical Indications: LIP order Breath Sounds: Any abnormal BS decreased Response: Mild response, increase subjective per ELECTRICAL ASSEMBLER Pulse: >100 Resp Rate: 18-25 SOB: With exertion Total Score: 5 Comment:: QID Frequency Based On Total Score: 0-4 = PRN 5-7 = QID 8-10 = Q4H 11-12 = Q2H Airway Clearance Therapy Frequency Airway Clearance - Clinical Indications: No clinical indications Breath Sounds: Clear / diminished Sputum: Small (tsp) / None Consistency: None Cough Effort: Strong/ non-productive Color: None Total Score: 0 Comment: Not indicated Frequency Based On Total Score: 0-3 = PRN 4-6 = QID and PRN 7-9 = Q4H and PRN 10-11 = Q2H and PRN Hyperinflation Therapy Frequency Hyperinflation - Clinical Indications: Atelectasis on CXR Breath Sounds: Clear Surgery: No X-Ray / Atelectasis: Yes O2 Requirements: 0-2 L above baseline Mobility Status: Mobile / at baseline Total: 3 Comment: PRN Frequency Based On Total Score: 0-3 = PRN 4-6 = QID and PRN 7-9 = Q4H and PRN 10-12 = Q2H and PRN Action/Events Respiratory events; Patient resting in bed, very cheerful. Breath sounds were clear bilaterally. Tx given with no adverse reactions. NATIVIDAD GUERRERO, 01/13/24 * Errol Ferrell MD - 01/13/2024 1341 EDT Infectious Disease Consultation Follow Up Note Admit Date: 01/08/2024 Hospital Day: LOS: 5 days Date of Service: 01/13/2024 Followup For: shortness of breath, cough, hypoxemia, diffuse ground glass opacities, increased fungitell, 24 Hour Events: Subjective: Feels somewhat better, no fevers, chills or sweats, no chest pain, continues to have shortness of breath and cough, no abdominal pain, N,V or diarrhea Anti-infectives & Other Pertinent Medications: Azithromycin X - 01/07 Ceftriaxone X - 01/07 Valacyclovir 01/08 - Atovaquone - 01/12 - Vital Signs: BP (!) 148/74 (BP Cuff Location: Left arm, BP Patient Position: Semi fowlers) Pulse (!) 115 Temp 36.8 ??C (98.3 ??F) (Oral) Resp 16 Ht 154.9 cm (61) Wt 54.4 kg (120 lb) [id number]% BMI 22.67 kg/m?? Exam: Sitting up in bed in NAD, awake, alert appropriate, responisve Chest - basilar crackles Cor - regular Data Review: Laboratory data reviewed. Pertinent positives include: Labs: WBC/RBC/HGB/HCT/PLT/ANC17.78/2.29/8.1/24.3/193/15.47 (01/12 1944) Microbiology: 11/08 - peritoneum fluid - neg 12/11 - BC X 2 - neg 12/11 - CLINICAL LABORATORY TECHNOLOGIST - SARS, Flu, RSV - neg 12/11 - Ascitic fluid - AFB - neg 12/11 - Ascitic fluid - neg 12/19 - Ascitic fluid - neg 01/07 - CLINICAL LABORATORY TECHNOLOGIST - SARS, Flu, RSV - neg 01/07 - CLINICAL LABORATORY TECHNOLOGIST - expanded respiratory panel - neg 01/08 - Urine Strep pneumo, Legionella Ag - neg 01/09 - crypto Ag - neg 01/10 - BAL - BELKIS - polys no bacteria AFB - neg, no fungi seen, PCP, Nocardia - pending 01/11 - BC X 2 - neg to date Other:01/09 - Fungitell - > 500 01/10 - Differential lavage fluid - 66% monos 01/10 - BELKIS BAL - cytology - no malignancy, alveolar macrophages, GMS shows organisms suggestive of Pooja 01/11 -Anaplasma - negative 01/11 - Histoplasma serum Ag - pending Histoplasma urine Ag - pending Aspergillus Galatomannan serum - pending CLINICAL LABORATORY TECHNOLOGIST swab - Mycoplasma pneumoniae PCR - pending Assessment: #) shortness of breath, cough, hypoxemia, diffuse ground glass opacities, increased fungitell - large differential including secondary to Enhertu - currently stable on steroids - Empiric Atovaquone started - additional studies pendin. Organisms on cytology consistent with Pooja are likely colonization as a true Candidal pneumonia would be unusual and there is no need to treat this finding. #) - metastatic breast Ca - #) - leukocytosis - presumed secondary to infection and increased steroids Recommendations: Continue with Atovaquone for now pending BAL results Discussed with primary care team Errol Ferrell MD 01/13/2024 13:42 * Lois Venegas RT - 01/13/2024 0852 EDT Home Oxygen Evaluation Name: Sunshine Subramanian Date of : 1960 PCP: Linda Blancas Expiration Date: 01/15/24 Inpatient Evaluation (results were reported within the two days before discharge). Oxygen improves the hypoxemia that was demonstrated during exercise while on room air. Date: 01/13/24 Time: 0900 EXERCISE EVALUATION: O2 Sat on room air at rest: 88% O2 Sat during exercise on room air: not performed O2 Sat during exercise with oxygen: Sat 88% @ 6 lpm Nasal Cannula If prescribed liter flow rate will be greater than or equal to 4lpm, O2 Sat must be documented on 4lpm before proceeding to higher FIO2 @ 4lpm O2 Sat = 85% Recommendations: Patient requires more than 6L NC with exertion, consider repeating walk test with oxymizer AT REST EVALUATION: O2 sat on room air taken at rest (awake). Recommendations: Patient qualifies for 3L NC at rest RT LUCIE 01/13/2024 * Kaylah Najera MD - 01/13/2024 0629 EDT Medical Oncology Progress Note Service Date: 01/13/24 Admit Date: 01/08/2024 Reason for Admission: 63 y.o. female admitted with hx of metastatic breast cancer with resultant portal hypertension from liver metastases who presented with a chief complaint of Acute on subacute dyspnea and now with a principal diagnosis of drug-induced pneumonitis versus PJP pneumonia. 24 Hour Events: NAEON Subjective/Objective Subjective Patient feels Better today. Amendable to not discharging today given new fungal infection in lungs.Patient performed walk test today is requiring more oxygen during walks and at rest. Patient okay with starting atovaquone. Patient understands we will follow-up about steroids. Her is comingto visit today. Muscle cramps are occurring earlier in the day progressively, patient has a tremor at baseline that is new as of December. Tremor worse in hospital. Interferes with eating. Patient wonders who will be managing her oxygen when she goes home. Review of Systems A ten point review of systems was performed and was negative except for pertinentpositives noted above. Objective Vital Signs Temp: [36.6 ??C (97.9 ??F)-37.1 ??C (98.8 ??F)] , BP: (96-142)/(52-102) , Heart Rate: [99 BPM-111 BPM] , SpO2: [90 %-100 %] , Resp: [18-22] Physical Exam GEN: alert, pleasant, in NAD HEENT: EOMi, nasal cannula in place on 3 L, anicteric sclera ABD: Non distended EXT: ROM intact, patient walking around room. NEURO: AOx3, no focal deficit PSYCH: appropriate affect for current situation Is PICC or central line present? Yes, it is still present. The line is still required. Port present Medications Reviewed Labs Reviewed Results for orders placed or performed during the hospital encounter of 01/08/24 (from the past 24 hour(s)) BASIC METABOLIC PANEL (BMP) Result Value Ref Range Sodium 134 (L) 136 - 145 mmol/L Potassium 3.6 3.5 - 5.0 mmol/L Chloride 99 96 - 110 mmol/L CO2 Total 25 22 - 32 mmol/L Anion Gap 10 5 - 14 mmol/L Glucose 137 (H) 70 - 99 mg/dl Calcium 8.1 (L) 8.5 - 10.5 mg/dL BUN 17 10 - 26 mg/dL Creatinine 0.59 0.52 - 1.04 mg/dL eGFR 102 >60 mL/min/1.73m2 MAGNESIUM Result Value Ref Range Magnesium 2.1 1.7 - 2.8 mg/dL COMPLETE BLOOD COUNT Result Value Ref Range WBC 17.78 (H) 4.00 - 12.40 K/cmm RBC 2.29 (L) 3.86 - 5.04 M/cmm Hemoglobin 8.1 (L) 11.6 - 15.2 g/dL HCT 24.3 (L) 34.9 - 44.4 % MCV 106 (H) 81 - 98 fL MCH 35.4 (H) 26.7 - 33.3 pg MCHC 33.3 32.1 - 35.9 g/dL RDW-CV 22.5 (H) <14.7 % RDW-SD 86.6 (H) <50.4 fl PLT 193 141 - 377 K/cmm MPV 10.7 9.5 - 12.7 fL PHOSPHORUS Result Value Ref Range Phosphorus 3.6 2.5 - 4.5 mg/dL *Note: Due to a large number of results and/or encounters for the requested time period, some results have not been displayed. A complete set of results can be found in Results Review. Micro Reviewed Imaging Reviewed Assessment/Plan Assessment Sunshine Subramanian is a 63 y.o. female with a PMHx significant for metastatic ER+ breast cancer(mets to liver c/b portal HTN, lymphadenopathy, bony mets), UE thrombus and PE on Eliquis who presented with dyspnea/hypoxia on 01/07 initially thought to be 2/2 Enhertu-mediated pneumonitis but now s/p bronchoscopy on 01/10 now with positive fungitell. Infectious disease consulted and concern for PJP pneumonia. Unknown at this time if shortness of breath is chemotherapy pneumonitis or fungal pneumonia. HD 5: - Start Atovaquone - f/u send out labs - Outpatient Palliative care referral on d/ - tbw pulmonology regarding outpatient oxygen management plan - tbw pulmonary medicine and infectious disease regarding steroid medication plan -Repeat walk oxygen test will need to be completed within 48 hours of discharge. Plan Acute hypoxic respiratory failure Enhertu-mediated pneumonitis vs infectious (Fungitell+) P/w progressive SOB for several months and worsening over the month of december, started Erhertu 12/[address] GGO on [address]. Bronchoscopy 01/10 w/ positive Fungitell with further labs and Micro pending. Concern at this time for PJP pneumonia. Further discussion regarding steroid plan needed. - Continue prednisone 50mg daily for one month followed by taper (decreased dose by 10mg per week over 5wks starting 01/14 or on discharge) - Continue GROWTH HACKER valtrex 500mg daily ppx (initially prescribed iso home prednisone) - f/u G6PD ordered - Cryptococcal antigen pending - Home oxygen evaluation 01/12. Needs special nasal cannula - Pulm consulted, appreciate recs - follow up in 6 weeks with PFTs and CT chest (week of 02/11) - DuoNeb q6hr, Robitussin and Tessalon Perles as needed - Referral to palliative as outpatient - Consult ID, appreciate recs as below: [ x] Urine histo, Serum histo, Aspergillus, BC X 2, Anaplasma/Ehrlichia PCR , CLINICAL LABORATORY TECHNOLOGIST swab Mycoplasma pneumonia [X] started Atovaquone PO 750 mg BID (01/12- ) Metastatic breast cancer Portal hypertension with ascites 2/2 liver mets Acute on Chronic malignant ascites. Continues to require paracentesis for comfort. Most recent 01/11. - Lasix 40mg daily - Home spironolactone 100mg daily - Will likely need another paracentesis prior to discharge. - IR para order outpatient placed Chronic pain, Cancer Related Chronic muscle spasms Mood disorder Acute on chronic muscle cramps. Unclear cause. Electrolytes normal. Status post iron infusion without resolution. - continue GROWTH HACKER gabapentin 300mg in the morning and afternoon, 600mg at bedtime. - continue flexeril 5mg BID prn - continue GROWTH HACKER venlafaxine 75mg daily - GROWTH HACKER Zolpidem reordered for difficulty sleeping secondary to cramps - Okay for spot doses of IV Dilaudid for severe pain RUE DVT and PE Dx 11/09/23 - Resumed GROWTH HACKER Eliquis 01/11 CHECKLIST: L/D/A: Chest port, nasal cannula 3 L Diet: Regular Diet Code: Full Code VTE Prophylaxis Eliquis Discharge Plan Pending Clinical Course , likely next week pending clinical course Consults Pulmonology, Appreciate recs KAYLAH YOUNG MD 01/13/2024 13:41 PGY-1 Resident Internal Medicine Associated attestation - Masha Russell MD - 01/13/2024 1350 EDT Attending Attestation I interviewed and examined the patient. I have personally reviewed interval events, laboratory data, and imaging. I discussed the case with the inpatient resident team. I agree with findings and planof care as documented by the resident (or have edited in blue). Appreciate ID consultation, constellation seems most consistent with PJP at this time and starting Atovaquone. Notably cytology today with pooja species - will review with ID. Do wonder if progressive prolonged constellation of shortness of breath, even prior to Trastuzumab and GGO on CT imaging if PJP is her truly underlying diagnosis and what leftover degree of this is truly Trastuzumab pneumonitis. Will review with Pulm. In light of this, warrants further monitoring inpatient. Pending input from consultants, ideally aim for a DC early next week with home O2. Will need to repeat O2 eval, and maybe need for oxymizer will improve with time on atovaquone Rest of detailed plan and assessment as per below. Masha Russell MD Hospitalist Physician 01/13/24 at 13:50 * Yunior Hendricks, RT - 01/12/20242028 EDT Respiratory Consult/Progress Note Indications for Respiratory therapy: Exertional Dyspnea Data Vitals: Heart Rate: 103 BPM, Resp: 20, SpO2: 100 % FIO2/O2 Device: O2 Flow Rate (L/min): 3 l/min, , O2 Device: Nasal cannula, FIO2 %: 32 % RT Orders: QID Duoneb Protocol Scoring: Bronchodilator/Inhalation Therapy Frequency Bronchodilator - Clinical Indications: LIP order Breath Sounds: Clear Response: No change / no treatment Pulse: >100 Resp Rate: 18-25 SOB: With exertion Total Score: 3 Comment:: Scores PRN Frequency Based On Total Score: 0-4 = PRN 5-7 = QID 8-10 = Q4H 11-12 = Q2H Airway Clearance Therapy Frequency Airway Clearance - Clinical Indications: No clinical indications Breath Sounds: Clear / diminished Sputum: Small (tsp) / None Consistency: None Cough Effort: Strong/ non-productive Color: None Total Score: 0 Comment: NA Frequency Based On Total Score: 0-3 = PRN 4-6 = QID and PRN 7-9 = Q4H and PRN 10-11 = Q2H and PRN Hyperinflation Therapy Frequency Hyperinflation - Clinical Indications: No clinical indications Breath Sounds: Clear Surgery: No X-Ray / Atelectasis: Yes O2 Requirements: 2-4 L above baseline Mobility Status: Mobile / at baseline Total: 4 Comment: prn Frequency Based On Total Score: 0-3 = PRN 4-6 = QID and PRN 7-9 = Q4H and PRN 10-12 = Q2H and PRN Action/Events Respiratory events; Following this patient for QID Duoneb. Patient was on 3L NC sitting up in bed watching TV at the time of treatment around 2024. Clear breath sounds appreciated on chest auscultation, exertional dyspnea endorsed by patient. Breathing appeared regular and unlabored at rest. Intermittent cough noted to be strong and dry. Patient tolerated medication administration well. Response/Results Weaning and Toleration of treatments; Continue to monitor, and Support; Deliver treatments as ordered. Wean oxygen as tolerated, has a home oxygen evaluation scheduled for tomorrow. RT JUS 01/12/24 * Leopoldo Saldana - 01/12/2024 1603 EDT Pulmonary & Critical Care Medicine Pulmonary Consult Progress Note Service Date: 01/12/2024. Admit Date: 01/08/2024 15:40. Requesting Provider: Masha Russell MD. Reason for Consult: Hypoxemia Subjective/Objective Subjective Pt seen and examined. Pt overall is doing well and is eating. No complications or issues after bronchoscopy. Spoke about positive fungitell. Review of Systems: Pertinent positives: weakness and some sob A ten point review of systems was performed with positives as above, all others are negative. Objective Vital Signs Temp: [36.2 ??C (97.2 ??F)-37.1 ??C (98.8 ??F)] , Heart Rate: [93 BPM-102 BPM] , Resp: [12-22] , BP: (95-142)/(44-108) , SpO2: [92 %-100 %] Physical Exam Gen: nad, lying in bed, alert and in no apparent distress HENT: oropharynx clear CV: RRR, S1/S2, no murmurs Lungs: Symmetric chest expansion. Clear to auscultation bilaterally. No rales, rhonchi, or wheezing Abd: Soft,+ ab distention Ext: no edema; no clubbing or cyanosis Skin: Warm and dry; no rashes or lesions visualized on exposed areas of skin. Neuro: alert and oriented, moving all extremities Psych: appropriate, cooperative, pleasant Medications: Reviewed. See MAR. Pertinent Labs: Reviewed independently and on Pulmonary Rounds. Lab Results Component Value Date/Time WBC 13.29 (H) 01/12/2024 05:33 HGB 7.4 (L) 01/12/2024 05:33 HCT 22.2 (L) 01/12/2024 05:33 PLT 163 01/12/2024 05:33 NA 134 (L) 01/12/2024 05:33 K 4.1 01/12/2024 05:33 CL 102 01/12/2024 05:33 CO2 27 01/12/2024 05:33 BUN 23 01/12/2024 05:33 CREATININE 0.54 01/12/2024 05:33 INR 1.2 (H) 12/12/2023 18:23 Micro: Micro: Negative COVID, flu, RSV, expanded viral 01/08/24. Negative Legionella/Strep 01/09/24. No micro history. Lab Results Component Value Date COVID-19 rt-PCR Result Negative 01/08/2024 Imaging: Reviewed independently and on Pulmonary Consult rounds. CT chest (01/05/24) Diminished lung volumes with evidence of atelectasis and/or scarring bilaterally, patchy ground glass opacity (new compared to most recent study October 2023), large amount of ascites. 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 CT with new grand glass opacities. Differential includes trastuzumab- induced interstitial pneumonitis vs. infection. Bronchoscopy indicated for further diagnostic clarification. Patient underwent bronchoscopy 01/11/2024 and after the procedure there is concern for possible infectious etiology. BAL so far has been negative for any acute infection however itis still early and her fluid and neutrophil lymphocyte positive. Patient was found to have an elevated Fungitell greater than 500 and she is not currently on medications that would lead to a false positive. With her underlying disease process there is obviously concern of fungal infection leading to her presentation and for this reason we have asked her primary team to discuss with infectious disease if there are any further studies that we can send out or should we obtain Aspergillus IgE. Karen bazan is immunosuppressed and has been on prednisone 50 mg so if this was the raised fungal infection she would worsen but right now is stable. Due to there being less concern of pneumonitis though) cannot rule in we will do a quicker taper of the prednisone and have repeat imaging performed. Recommendations: - ID for further management of elevated fungitell - Steroid taper plan 1. Prednisone 50mg for 1 wk and after this for the next 5 wks please continue to drop down by 10mg every week. 2. [place] taper due to less concern for pneumonitis 3. At the 6 wk irish would obtain a CT scan of the chest to see if any resolution of GGO 4. Pulmonary clinic f/u in 6-8wks - Will f/u Pneumocytisis in BAL and other studies. ( Fungal) - Pt may need home O2 and would further evaluate. - Cont with nebulizer therapy Patient seen and plan discussed with Dr. Logan. Leopoldo Saldana MD PGY-4, Pager: [phone] Pulmonary & Critical Care Medicine Fellow 01/12/2024,16:04 Associated attestation - Chelsea Logan MD - 01/12/2024 1616 EDT Attestation: I performed or was present during the knight or critical portions of the visit and participated in the management of the patient on 01/12/2024. I agree with the findings and plan of care documented in the resident's/fellow's note. Chelsea Logan MD 01/12/2024 16:16 * Jackie Juan MD - 01/12/2024 0754 EDT Medical Oncology Progress Note Service Date: 01/12/24 Admit Date: 01/08/2024 Reason for Admission: 63 y.o. female admitted with a chief complaint of Acute on subacute dyspnea and now with a principal diagnosis of metastatic breast cancer with resultant portal hypertension from liver metastases. 24 Hour Events: NAEON Subjective/Objective Subjective Patient feels well this morning. Still experiencing some dyspnea especially with exertion but overall feeling improved. Review of Systems A ten point review of systems was performed and was negative except for pertinentpositives noted above. Objective Vital Signs Temp: [36.2 ??C (97.2 ??F)-36.8 ??C (98.3 ??F)] , BP: (95-138)/(44-108) , Heart Rate: [93 BPM-102 BPM] , SpO2: [92 %-100 %] , Resp: [12-22] Physical Exam GEN: alert, pleasant, in NAD HEENT: EOMi, nasal cannula in place on 2 L, anicteric sclera PULM: Fine crackles diffuse, mild increased WOB ABD: Non distended EXT: WWP, no p edema NEURO: AOx3, no focal deficit PSYCH: appropriate affect for current situation Is PICC or central line present? Yes, it is still present. The line is still required. Port present Medications Reviewed Labs Reviewed Results for orders placed or performed during the hospital encounter of 01/08/24 (from the past 24 hour(s)) MAGNESIUM Result Value Ref Range Magnesium 2.3 1.7 - 2.8 mg/dL BASIC METABOLIC PANEL (BMP) Result Value Ref Range Sodium 133 (L) 136 - 145 mmol/L Potassium 4.6 3.5 - 5.0 mmol/L Chloride 98 96 - 110 mmol/L CO2 Total 26 22 - 32 mmol/L Anion Gap 9 5 - 14 mmol/L Glucose 95 70 - 99 mg/dl Calcium 8.7 8.5 - 10.5 mg/dL BUN 21 10 - 26 mg/dL Creatinine 0.59 0.52 - 1.04 mg/dL eGFR 102 >60 mL/min/1.73m2 HEPATIC FUNCTION PANEL (ALB,ALK PHOS,ALT,AST,DBIL,TOT WILY,TOT PROT) Result Value Ref Range Total Protein 5.3 (L) 6.3 - 8.2 g/dL Albumin 2.5 (L) 3.4 - 4.9 g/dL Bilirubin, Total 1.2 <1.4 mg/dL Conjugated Bilirubin 0.0 <=0.3 mg/dL Unconjugated Bilirubin 0.6 <=1.1 mg/dL Alkaline Phosphatase 312 (H) 38 - 126 U/L ALT 50 (H) <35 U/L AST 69 (H) 15 - 46 U/L Calculated Total Bilirubin 0.6 <1.4 mg/dL VITAMIN B12 Result Value Ref Range Vitamin B12 1,574 (H) 211 - 911 pg/mL FOLATE Result Value Ref Range Folate >24.0 See Note ng/mL COMPLETE BLOOD COUNT Result Value Ref Range WBC 13.29 (H) 4.00 - 12.40 K/cmm RBC 2.07 (L) 3.86 - 5.04 M/cmm Hemoglobin 7.4 (L) 11.6 - 15.2 g/dL HCT 22.2 (L) 34.9 - 44.4 % MCV 107 (H) 81 - 98 fL MCH 35.7 (H) 26.7 - 33.3 pg MCHC 33.3 32.1 - 35.9 g/dL RDW-CV 22.5 (H) <14.7 % RDW-SD 88.0 (H) <50.4 fl PLT 163 141 - 377 K/cmm MPV 10.9 9.5 - 12.7 fL MAGNESIUM Result Value Ref Range Magnesium 2.5 1.7 - 2.8 mg/dL BASIC METABOLIC PANEL (BMP) Result Value Ref Range Sodium 134 (L) 136 - 145 mmol/L Potassium 4.1 3.5 - 5.0 mmol/L Chloride 102 96 - 110 mmol/L CO2 Total 27 22 - 32 mmol/L Anion Gap 5 5 - 14 mmol/L Glucose 105 (H) 70 - 99 mg/dl Calcium 8.9 8.5 - 10.5 mg/dL BUN 23 10 - 26 mg/dL Creatinine 0.54 0.52 - 1.04 mg/dL eGFR 104 >60 mL/min/1.73m2 PHOSPHORUS Result Value Ref Range Phosphorus 3.5 2.5 - 4.5 mg/dL CALCIUM, IONIZED Result Value Ref Range Calcium, Ionized 1.20 1.14 - 1.35 mmol/L *Note: Due to a large number of results and/or encounters for the requested time period, some results have not been displayed. A complete set of results can be found in Results Review. Micro Reviewed Imaging Reviewed Assessment/Plan Assessment Sunshine Subramanian is a 63 y.o. female with a PMHx significant for metastatic ER+ breast cancer(mets to liver c/b portal HTN, lymphadenopathy, bony mets), UE thrombus and PE on Eliquis who presented with dyspnea/hypoxia on 01/07 likely secondary to Enhertu-mediated pneumonitis. Now s/p bronchoscopy on 01/10 now with positive fungitell. Plan for home oxygen eval today and likely discharge tomorrow. Plan Acute hypoxic respiratory failure Likely Enhertu-mediated pneumonitis vs infectious (Fungitell+) Metastatic breast cancer P/w progressive SOB for several months and worsening over the last month, started Erhertu 12/19 now with new GGO on CT. Bronchoscopy 01/10 to rule out infection prior to prolonged course of high dose steroids . Micro pending - Continue prednisone 50mg daily for one month followed by taper - Continue GROWTH HACKER valtrex 500mg daily ppx (initially prescribed iso home prednisone) - PJP PPx on discharge - allergy to Bactrim, wheeler check for atovaquone and dapsone sent, G6PD ordered - Cryptococcal antigen pending - DuoNeb q6hr, Robitussin and Tessalon Perles as needed - Home oxygen evaluation today. Needs pediatric nasal cannula - Pulm follow up in 6 weeks with PFTs and CT chest - Referral to palliative as outpatient - Consult ID iso positive fungitell Portal hypertension with ascites 2/2 liver mets Acute on Chronic malignant ascites. - Resume Lasix 40mg daily - Resume Home spironolactone 100mg daily - Plan for paracentesis today - IR para order outpatient placed Chronic pain Chronic muscle spasms Mood disorder - continue GROWTH HACKER gabapentin 300mg in the morning and afternoon, 600mg at bedtime. - continue flexeril 5mg BID prn - continue GROWTH HACKER venlafaxine 75mg daily - GROWTH HACKER Zolpidem reordered for difficulty sleeping secondary to cramps - Okay for spot doses of IV Dilaudid for severe pain RUE DVT and PE Dx 11/09/23 - Resume GROWTH HACKER Eliquis CHECKLIST: L/D/A: Chest port, nasal cannula 2 L Diet: Regular Diet Code: Full Code VTE Prophylaxis Eliquis Discharge Plan Pending Clinical Course , likely Tuesday pending bronchoscopy workup Home oxygen assessment and clinical course. Consults Pulmonology, Appreciate recs JACKIE JUAN MD 01/12/2024 7:54 Franca Juan MD PGY-5 [facility] Internal Medicine Available on [employer]. Pager #[phone] Associated attestation - Masha Russell MD - 01/12/2024 1440 EDT Attending Attestation I interviewed and examined the patient. I have personally reviewed interval events, laboratory data, and imaging. I discussed the case with the inpatient resident team. I agree with findings and planof care as documented by the resident (or have edited in blue). Overall continues to be symptomatically improved with oxygen in place. S/P bronch yesterday. Fungitell returned positive today. Indolent fungal infection could explain her more progressive shortness of breath and GGOs. She does not have clear false positive predispositions. Have updated pulm and asked ID for consultation. Prior to this result had been hopeful for DC home tomorrow, but pending ID consultation, this may need adjusted. I spent a total of 50 minutes on the date of this encounter meeting with the patient and reviewing documentation/coordinating care as described in the above note. Rest of detailed plan and assessment as per below. Masha Russell MD Hospitalist Physician 01/12/24 at 14:38 * Jennifer Govea RT - 01/11/2024 2017 EDT RESP NOTE: patient does not want to be woken up for nebs; scheduled QID * Zuhair Thomas, - 01/11/2024 1511 EDT Respiratory Consult/Progress Note Indications for Respiratory therapy: SOB Data Vitals: Heart Rate: 100 BPM, Resp: 18, SpO2: 95 % FIO2/O2 Device: O2 Flow Rate (L/min): 3 l/min, , O2 Device: Nasal cannula, FIO2 %: 32 % RT Orders: Duoneb Q6 Protocol Scoring: Bronchodilator/Inhalation Therapy Frequency Bronchodilator - Clinical Indications: LIP order Breath Sounds: Any abnormal BS decreased Response: No change / no treatment Pulse: >100 Resp Rate: 18-25 SOB: With exertion Total Score: 4 Comment:: Q6 Per MD Frequency Based On Total Score: 0-4 = PRN 5-7 = QID 8-10 = Q4H 11-12 = Q2H Airway Clearance Therapy Frequency Airway Clearance - Clinical Indications: No clinical indications Breath Sounds: Clear / diminished Sputum: Small (tsp) / None Consistency: None Cough Effort: Strong/ non-productive Color: None Total Score: 0 Comment: NA Frequency Based On Total Score: 0-3 = PRN 4-6 = QID and PRN 7-9 = Q4H and PRN 10-11 = Q2H and PRN Hyperinflation Therapy Frequency Hyperinflation - Clinical Indications: Decreased breath sounds with increased FiO2 Breath Sounds: Diminished / crackles Surgery: No X-Ray / Atelectasis: Yes O2 Requirements: 2-4 L above baseline Mobility Status: Mobile / at baseline Total: 6 Comment: Q6 Frequency Based On Total Score: 0-3 = PRN 4-6 = QID and PRN 7-9 = Q4H and PRN 10-12 = Q2H and PRN Action/Events Respiratory events; Following this patient for Q6 Duoneb, tolerated treatments well, BBS Diminished/Fine Crackles, Sats>95% on 3LNC, no significant RDS noted at this time, VSS. Order placed per Pulmonary MD Response/Results Weaning and Toleration of treatments; Continue to monitor, and Support; Deliver treatments as ordered. RT FLORI 01/11/24 * Ben Bentley, RD - 01/11/2024 0944 EDT Nutrition Assessment Note: Initial Visit Reason for Visit: Identified at risk due to diagnosis BACKGROUND DATA Subjective: Pt says she had been not having much of an appetite, at home her was being great and makingher all sorts of protein smoothies and different kinds of snacks. Had fluid removed and had very much improved appetite and had a very large plate of foods and ordered everything that looked good. Says she can already feel fluid coming back but looking forward to her next meal. Not having any nausea. We discussed ways to additional calories to foods and different kinds of high protein/calorie dense snacks, provided her w/ education materials. Says her weight has been going up and down by quite a bit each time they have to remove fluid. Current Nutrition Orders: Diet Order: NPO Physical Findings: Digestive Systems: Last BM (unknown) Dentition: Teeth: Missing teeth per flowsheets Edema: none noted Skin: WDL Allergies on file: Amoxicillin, Sulfa (sulfonamide antibiotics), and Sulfamethoxazole-trimethoprim Nutrition Focused Physical Exam Subcutaneous Fat Assessment Orbital Region: Severe loss (01/11/24 1149) Cheek Region: Severe loss (01/11/24 1149) Upper Arm Region: Not assessed (01/11/24 114) Midaxillary Line: Not assessed (01/11/24 114) Muscle Mass Assessment [place] Region: Severe loss (01/11/24 114) Clavicle Region: Severe loss (01/11/24 114) Shoulder/Acromion/Clavicle Region: Not assessed (01/11/24 114) Scapula Region: Not assessed (01/11/24 114) Hand Region: Severe loss (01/11/24 114) Thigh/Patellar Region: Not assessed (01/11/24 114) Calf Region: Not assessed (01/11/24 114) NFPE Assessment Summary of Fat Wasting: Severe fat wasting (01/11/24 114) Summary of Muscle Wasting: Severe muscle wasting (01/11/24 114) Anthropometrics: Height: 154.9 cm (61) Wt Readings from Last 6 Encounters: 01/09/24 54.4 kg (120 lb) 12/20/23 55.6 kg (122 lb 9.6 oz) 12/12/23 53.5 kg (118 lb) 12/09/23 55 kg (121 lb 4.1 oz) 11/29/23 59.9 kg (132 lb 1.6 oz) 11/23/23 62.6 kg (138 lb 0.1 oz) BMI: Body mass index is 22.67 kg/m??. Weights Filed This Admission 01/08/24 1539 01/09/24 1618 Weight: 54.4 kg (120 lb) 54.4 kg (120 lb) Pertinent Medications: Current Facility-Administered Medications Medication Route Frequency benzonatate (TESSALON) capsule 100 mg oral TID PRN blood thinner patient education booklet 1 Each other Once (Without Time Specified) cyclobenzaprine (FLEXERIL) tablet 5 mg oral BID PRN dextromethorphan-guaiFENesin (ROBITUSSIN DM) 10-100 mg/5 mL syrup 10 mL oral Q4H PRN gabapentin (NEURONTIN) capsule 300 mg oral BID (0800 & 1400) gabapentin (NEURONTIN) capsule 600 mg oral QHS HYDROmorphone (PF) (DILAUDID) 0.5 mg/0.5 mL syringe 0.5 mg intravenous Q4H PRN ipratropium-albuteroL (DUONEB) 0.5 mg-3 mg(2.5 mg base)/3 mL nebulizer solution 3 mL nebulization Q6H iron dextran (INFED) 1,300 mg in sodium chloride (NS) 0.9 % 250 mL IVPB intravenous Now lidocaine (PF) 10 mg/mL (1 %) injection 2 mg intradermal PRN pantoprazole (PROTONIX) tablet 40 mg oral DAILY predniSONE (DELTASONE) tablet 50 mg oral DAILY valACYclovir (VALTREX) tablet 500 mg oral DAILY venlafaxine (EFFEXOR-XR) XR capsule 75 mg oral DAILY Relevant Labs: Lab Results Component Value Date WBC 15.81 (H) 01/11/2024 RBC 2.17 (L) 01/11/2024 HGB 7.6 (L) 01/11/2024 HCT 22.9 (L) 01/11/2024 MCV 106 (H) 01/11/2024 MCH 35.0 (H) 01/11/2024 PLT 232 01/11/2024 NA 133 (L) 01/11/2024 K 4.6 01/11/2024 CL 98 01/11/2024 CO2 26 01/11/2024 BUN 21 01/11/2024 CREATININE 0.59 01/11/2024 GLUCOSEFINGE 96 12/13/2011 CALCIUM 8.7 01/11/2024 MG 2.3 01/11/2024 PHOS 3.5 12/20/2023 VITD 97 12/20/2023 Estimated Nutrition Needs: BEE: 1046kcal @ 54.4kg (MSJ) Kcal: 5324-6625 @ 25-30kcal/kg/bw Protein: 1.5-1.6L Fluid: 71-82g @ 1.3-1.5g/kg/bw Estimated Nutrition Intake: Not yet documented ASSESSMENT: RD Malnutrition Assessment Patient presents on admission with severe malnutrition in the context of chronic illness related todecreased PO intake 2/2 poor appetite and taste changes as evidenced by meeting <75% of energy requirements for >1 month, severe muscle and fat wasting. Pt Npo at this time for pending bronch, advance diet once clinically appropriate. Pt w/ greatly improved appetite s/p removal of fluid, encourage PO intake. Discussed importance of protein intake andprovided pt w/ education materials on adding additional calorie/protein to foods. High risk for micr onutrient/mineral deficiency 2/2 decreased intake and chronic illness, recommend adding Nephrovite daily and check B12 level. Sodium slightly low at this time, monitor lytes daily and replete as needed, recommend checking phos level. Monitor PO intake and Bms. Strict I/Os and continue to trend wieght. Nutrition Risk Level: High (1) MEDICAL NUTRITION THERAPY PLAN: Advance diet once clinically appropriate - if not having procedure today, advance diet earliest possible - encourage PO intake and small frequent meals - ok for all high calorie/protein oral supplements 2. Add Nephrovite daily 3. Check B12 level 4. Check Phos 5. Daily lytes, replete as needed 6. Monitor PO intake and Bms 7. Strict I/Os 8. Trend weight [address], CD (Call PAS or use [email or web address] ([employer]) to page RD covering this unit) * Kaylah Najera MD - 01/11/2024 0653 EDT Medical Oncology Progress Note Service Date: 01/11/24 Admit Date: 01/08/2024 Reason for Admission: 63 y.o. female admitted with a chief complaint of Acute on subacute dyspnea and now with a principal diagnosis of metastatic breast cancer with resultant portal hypertension from liver metastases. 24 Hour Events: NAEON Subjective/Objective Subjective Breathing improved, still shortness of breath with exertion -Patient wonders if diuretics could be worsening ascites - Patient would like workup for cause of nightly cramps/contractures. Worries about treating with medications that just caused her to sleep through it without knowing the cause. Denies numbness tingling to extremities. Denies fever body aches chills -Abdominal fluid re accumulating -Symmetric bilateral leg cramps overnight, involving bilateral upper extremities as well Review of Systems A ten point review of systems was performed and was negative except for pertinentpositives noted above. Objective Vital Signs Temp: [36.5 ??C (97.7 ??F)-37 ??C (98.6 ??F)] , BP: (120-130)/(65-84) , Heart Rate: [100 BPM-105 BPM] , SpO2: [93 %-99 %] , Resp: [15-16] Physical Exam GEN: alert, pleasant, in NAD, very dyspneic HEENT: EOMi, nasal cannula in place on 2 L, anicteric sclera PULM: Increased work of breathing with supraclavicular retractions, crackles diffusely to air perez but improved from prior ABD: Non distended EXT: WWP, no p edema NEURO: AOx3, no focal deficit PSYCH: appropriate affect for current situation Is PICC or central line present? Yes, it is still present. The line is still required. Port present Medications Reviewed Labs Reviewed Results for orders placed or performed during the hospital encounter of 01/08/24 (from the past 24 hour(s)) MAGNESIUM Result Value Ref Range Magnesium 2.1 1.7 - 2.8 mg/dL BASIC METABOLIC PANEL (BMP) Result Value Ref Range Sodium 132 (L) 136 - 145 mmol/L Potassium 3.9 3.5 - 5.0 mmol/L Chloride 98 96 - 110 mmol/L CO2 Total 26 22 - 32 mmol/L Anion Gap 8 5 - 14 mmol/L Glucose 100 (H) 70 - 99 mg/dl Calcium 8.3 (L) 8.5 - 10.5 mg/dL BUN 16 10 - 26 mg/dL Creatinine 0.56 0.52 - 1.04 mg/dL eGFR 103 >60 mL/min/1.73m2 TRANSFERRIN SATURATION Result Value Ref Range Iron 27 (L) 37 - 170 ??g/dL Iron Binding Capacity 250 240 - 450 ??g/dL Transferrin Saturation 11 (L) 15 - 45 % FERRITIN Result Value Ref Range Ferritin 46 10 - 291 ng/mL MAGNESIUM Result Value Ref Range Magnesium 2.0 1.7 - 2.8 mg/dL BASIC METABOLIC PANEL (BMP) Result Value Ref Range Sodium 131 (L) 136 - 145 mmol/L Potassium 4.6 3.5 - 5.0 mmol/L Chloride 96 96 - 110 mmol/L CO2 Total 24 22 - 32 mmol/L Anion Gap 11 5 - 14 mmol/L Glucose 133 (H) 70 - 99 mg/dl Calcium 8.3 (L) 8.5 - 10.5 mg/dL BUN 17 10 - 26 mg/dL Creatinine 0.59 0.52 - 1.04 mg/dL eGFR 102 >60 mL/min/1.73m2 *Note: Due to a large number of results and/or encounters for the requested time period, some results have not been displayed. A complete set of results can be found in Results Review. Micro Reviewed Imaging Reviewed Assessment/Plan Assessment Sunshine Subramanian is a 63 y.o. female with a PMHx significant for metastatic ER+ breast cancer(mets to liver c/b portal HTN, lymphadenopathy, bony mets), UE thrombus and PE on Eliquis sine 11/09/23, HSV 2, GERD, and depression who is currently admitted for dyspnea/hypoxia with unconfirmed etiology but likely Enhertu-mediated pneumonitis. Pulmonology is following and plan is for bronchoscopy tomorrow. Unlikely to be infectious given the long course progressive nature, no fevers or systemic sx, no productive cough or URI sx and negative infectious work up. Hospital Day #3 -Bronchoscopy 01/10 -Hold Lasix in the setting of n.p.o. x 2 days now - Iron infusion today - Follow-up Sputum cultures - B12, B9 tests ordered -TTE completed prior, within normal limits Plan Acute hypoxic respiratory failure Ground glass opacities on CT chest Last bronch 12/08, but prior to acute worsening of dyspnea (12/11), infectious workup negative. Completed bronchoscopy with pulmonary January 11, 2024. BAL performed. Results pending -Adult regular diet - Prednisone (50mg) daily (01/08 - )--PJP PPx on discharge - Serum fungitell and cryptococcal antigen pending - f/u sputum culture (NGTD ) - DuoNeb every 6 hours with additional as needed antitussives available for patient -Will likely need supplemental oxygen therapy on discharge -Start home oxygen assessment 01/11 Metastatic breast cancer with mets to bone and liver. Has outpatient oncologist - continue valtrex 500mg daily ptx (initially prescribed iso home prednisone) -No cancer related pain Portal hypertension with ascites 2/2 liver mets Acute on Chronic malignant ascites. Platysma concerning for possible hepatopulmonary syndrome although unlikely given liver function is not end stage and would be premature. -Hepatic function tests 01/10 - TTE ordered 01/08-> within normal limits - Lasix 40mg daily-held 01/10 for n.p.o. - Continue Home spironolactone 100mg daily-held 01/10 for n.p.o. -Will discharge patient with as needed paracentesis order to be continued by primary oncology outpatient team Iron deficiency anemia Macrocytic anemia Given known poor nutritional status and decreased oral intake likely low iron intake as opposed to iron losses. No other acute findings consistent with bleed. -1300 mg IV iron given 01/10 - Follow-up B12 and B9 - AM CBC Chronic pain Chronic muscle spasms Mood disorderChronic pain Chronic muscle spasms Mood disorder - continue GROWTH HACKER gabapentin 300mg in the morning and afternoon, 600mg at bedtime. Watch for encephalopathy - continue flexeril 5mg BID prn - continue GROWTH HACKER venlafaxine 75mg daily Patient reports months of nightly cramps in hands bilateral forearms feet and calves. Intermittently will be acutely worse and involve her thighs. Never involves the trunk. Reports symptoms as debilitating and interfering with quality of life. - AM ionized calcium (corrected calcium 9.) - Electrolytes normal - Follow-up symptoms after iron infusion 01/10 - GROWTH HACKER Zolpidem reordered for difficulty sleeping secondary to cramps - Okay for spot doses of IV Dilaudid for severe pain - continue GROWTH HACKER gabapentin 300mg in the morning and afternoon, 600mg at bedtime. Watch for encephalopathy - continue flexeril 5mg BID prn - continue GROWTH HACKER venlafaxine 75mg daily Hyponatremia Improved since 01/04, but hyponatremic at baseline per patient. Unclear etiology, possibly SIADH isoPNA or poor PO intake or volume overload . Less likely to contribute to patient's complaint of muscle cramps. Other electrolytes normalized as well. - F/u AM BMP -Continue to encourage p.o. intake when not n.p.o. RUE DVT and PE Dx 11/09/23 -Eliquis held starting a.m.01/08 for bronc starting 01/09 - Touch base with pulmonary 01/11 regarding when to restart Eliquis CHECKLIST: L/D/A: Chest port, nasal cannula 2 L Diet: Regular Diet Pain: No acute pain, APAP(hepatically dosed) vs consider IV Dilaudid if developed overnight VTE Prophylaxis: GROWTH HACKER Eliquis 5mg bid Held (01/08 AM dose = first held dose) Code: Full Code VTE Prophylaxis Held for Bronchoscopy starting 01/09 TBW PULM TO RESTART 01/11 Discharge Plan Pending Clinical Course , likely Tuesday pending bronchoscopy workup Home oxygen assessment and clinical course. Consults Pulmonology, Appreciate recs KAYLAH YOUNG MD 01/11/2024 6:53 PGY-1 Resident Internal Medicine Associated attestation - Masha Russell MD - 01/12/2024 0726 EDT Attending Attestation I interviewed and examined the patient. I have personally reviewed interval events, laboratory data, and imaging. I discussed the case with the inpatient resident team. I agree with findings and planof care as documented by the resident (or have edited in blue). Undergoing bronch today. Will await results. Anticipate if stable post tomorrow, will work on oxygen qualification for hopeful DC Tuesday. Will need PJP ppx on DC. Will need IR prn standing para orderon DC. Diuretics held today due to prolonged NPO time x2 days, but will resume tomorrow. Giving IV iron today - suspect some degree of her leg symptoms at night are related to restless legs and iron deficiency. Updated Nitish for a while at bedside today and answered all questions. I spent a total of 50 minutes on the date of this encounter meeting with the patient and reviewing documentation/coordinating care as described in the above note. Rest of detailed plan and assessment as per below. Documentation and notation for evaluation of patient on 01/11/24. Masha Russell MD Hospitalist Physician 01/12/24 at 7:26 * Anel Schulz, RT - 01/11/2024 0542 EDT Respiratory Progress Note Indications for Respiratory therapy: SOB Data Vitals: Heart Rate: 105 BPM, Resp: 15, SpO2: 96 % FIO2/O2 Device: O2 Flow Rate (L/min): 0 l/min, , O2 Device: None, FIO2 %: 32 % RT Orders: Q6 DuoNeb (as per MD) Action/Events Respiratory events; Currently alert, able to communicate and on resting comfortably on 2LNC. Breath sounds are diminished bilaterally. Pt stated she does not want to be woken up for tx in the middle of the night. Recommend QID and prn as needed. Vitals remain stable. Plan of care on going. RT EDY 01/11/24 * Angelo Alexandra, RT - 01/10/2024 1616 EDT Respiratory Consult/Progress Note Indications for Respiratory therapy: SOB Data Vitals: Heart Rate: 105 BPM, Resp: 16, SpO2: 98 % FIO2/O2 Device: O2 Flow Rate (L/min): 2 l/min, , O2 Device: Nasal cannula, FIO2 %: 32 % RT Orders: Q6 DuoNeb (as per MD)`[id number] 3. Protocol Scoring: Bronchodilator/Inhalation Therapy Frequency Bronchodilator - Clinical Indications: LIP order Breath Sounds: Any abnormal BS decreased Response: No change / no treatment Pulse: <100 Resp Rate: 18-25 SOB: With exertion Total Score: 3 Comment:: Q6 as per MD Frequency Based On Total Score: 0-4 = PRN 5-7 = QID 8-10 = Q4H 11-12 = Q2H Airway Clearance Therapy Frequency Airway Clearance - Clinical Indications: No clinical indications Breath Sounds: Clear / diminished Sputum: Small (tsp) / None Consistency: None Cough Effort: Strong/ non-productive Color: None Total Score: 0 Comment: NA Frequency Based On Total Score: 0-3 = PRN 4-6 = QID and PRN 7-9 = Q4H and PRN 10-11 = Q2H and PRN Hyperinflation Therapy Frequency Hyperinflation - Clinical Indications: Decreased breath sounds with increased FiO2 Breath Sounds: Diminished / crackles Surgery: No X-Ray / Atelectasis: Yes O2 Requirements: 0-2 L above baseline Mobility Status: Mobile / at baseline Total: 5 Comment: Q6 Frequency Based On Total Score: 0-3 = PRN 4-6 = QID and PRN 7-9 = Q4H and PRN 10-12 = Q2H and PRN Action/Events Respiratory events; Pt seen to deliver Q6 DuoNeb. Currently alert, able to communicate and on resting comfortably on 2LNC. Breath sounds are diminished yet clear bilaterally. Administered Rx with no adverse reactions tonote. Vitals remain stable. Plan of care ongoing. RT NAVJOT 01/10/24 * Kaylah Najera MD - 01/10/2024 0518 EDT Medical Oncology Progress Note Service Date: 01/10/24 Admit Date: 01/08/2024 Reason for Admission: 63 y.o. female admitted with a chief complaint of Acute on subacute dyspnea and now with a principal diagnosis of metastatic breast cancer with resultant portal hypertension from liver metastases. 24 Hour Events: NAEON Subjective/Objective Subjective Breathing improved, still shortness of breath with exertion No pain -200 cc net out after increased Lasix - Sputum cultures still pending -Iron studies show iron deficiency anemia -Echo ordered TBD completion -Abdominal fluid re accumulating -Symmetric bilateral leg cramps overnight Review of Systems A ten point review of systems was performed and was negative except for pertinentpositives noted above. Objective Vital Signs Temp: [36.6 ??C (97.8 ??F)-37.7 ??C (99.8 ??F)] , BP: (108-142)/(59-73) , Heart Rate: [103 BPM-115 BPM] , SpO2: [92 %-99 %] , Resp: [16-20] Physical Exam GEN: alert, pleasant, in NAD, very dyspneic HEENT: EOMi, nasal cannula in place on 2 L, anicteric sclera CV: RRR, no murmurs PULM: Increased work of breathing with supraclavicular retractions, crackles diffusely to left air perez, crackles in the right upper air perez, decreased breath sounds to left lower air perez. ABD: Non distended, no guarding, no masses palpated no fluid shift EXT: WWP, no p edema NEURO: AOx3, no focal deficit PSYCH: appropriate affect for current situation Is PICC or central line present? Yes, it is still present. The line is still required. Port present Medications Reviewed Labs Reviewed Results for orders placed or performed during the hospital encounter of 01/08/24 (from the past 24 hour(s)) COMPLETE BLOOD COUNT Result Value Ref Range WBC 8.60 4.00 - 12.40 K/cmm RBC 2.08 (L) 3.86 - 5.04 M/cmm Hemoglobin 7.4 (L) 11.6 - 15.2 g/dL HCT 22.2 (L) 34.9 - 44.4 % MCV 107 (H) 81 - 98 fL MCH 35.6 (H) 26.7 - 33.3 pg MCHC 33.3 32.1 - 35.9 g/dL RDW-CV 24.5 (H) <14.7 % RDW-SD 91.6 (H) <50.4 fl PLT 124 (L) 141 - 377 K/cmm MPV 11.9 9.5 - 12.7 fL HN LAB CBC SMEAR REVIEW Result Value Ref Range Differential Comment Slide was examined by a technologist to verify the WBC and/or platelet count. LEGIONELLA ANTIGEN DETECTION, URINE Specimen: Urine, Random Urine Result Value Ref Range Legionella Antigen Detection Negative Negative STREPTOCOCCUS PNEUMONIAE ANTIGEN, URINE Specimen: Urine, Random Urine Result Value Ref Range Strep Pneumo Ag Detection, Urine Negative Negative FLUID CELL COUNT Result Value Ref Range RBC, Fluid <10,000 /cmm Nucleated Cells, fluid 101 /cmm Comment, fluid Yellow Slightly cloudy FLUID DIFFERENTIAL Result Value Ref Range Neutrophils Fluid Relative 18 % Lymphocytes Fluid Relative 22 % [place]/Macrophage 46 % Mesothelial Cells Fluid Relative 14 % TRANSTHORACIC ECHO (TTE) COMPLETE Result Value Ref Range LV Diastolic Volume 83 mL LV Systolic Volume 35 mL Stroke volume (SV), LVOT DP 55 ml LVOT VTI, S 19.5 cm LVOT peak velocity, S 1.2 m/s LVOT area 2.8 cm2 LVOT ID, S 1.9 cm AV LVOT peak gradient 6 mmHg LVOT mean gradient, S 3 mmHg LV ejection fraction, 1-p A4C 51 % LV ejection fraction, 1-p A2C 53 % Aortic root ID 2.2 cm Ascending aorta ID, a-p 2.5 cm LV ID, ES, PLAX 3.0 2.1 - 4.0 cm LV PW thickness, ED, PLAX 0.9 0.6 - 1.1 cm LV ID, ED, PLAX 4.3 3.5 - 6.0 cm LA volume, ES, BP 24.0 ml LA Atrial Length A2C 4.6 cm LA volumes, ES, A4C 23.0 ml Pulmonic valve mean velocity, S 1 cm/s LA ID/bsa, A-P 2.0 cm/m2 LA ID, A-P, ES 3.0 cm LV end-diastolic volume, 1-p A4C 66 ml LV end diastolic volume 1-p A2C 56 ml Stroke index (SV/bsa) LVOT DP 36.0 ml/m2 LA/aortic root ratio 1.36 LVOT mean velocity, S 0.8 m/s IVS thickness, ED, PLAX 0.7 cm Aortic valve VTI, S 25.0 cm Aortic valve area VTI 2.2 cm2 *Note: Due to a large number of results and/or encounters for the requested time period, some results have not been displayed. A complete set of results can be found in Results Review. Micro Reviewed Imaging Reviewed Assessment/Plan Assessment Sunshine Subramanian is a 63 y.o. female with a PMHx significant for metastatic ER+ breast cancer(mets to liver c/b portal HTN, lymphadenopathy, bony mets), UE thrombus and PE on Eliquis sine 11/09/23, HSV 2, GERD, and depression who is currently admitted for dyspnea/hypoxia with unconfirmed etiology but likely Enhertu-mediated pneumonitis. Pulmonology is following and plan is for bronchoscopy tomorrow. Unlikely to be infectious given the long course progressive nature, no fevers or systemic sx, no productive cough or URI sx and negative infectious work up. Hospital Day #2 -Bronchoscopy 01/09 afternoon was canceled and rescheduled for 01/10 -Still needs echo - no change to Lasix order for now - Sputum cultures still pending -Iron studies show DENISE, plan for repletion 01/10 -Echo ordered TBD completion Plan Acute hypoxic respiratory failure Ground glass opacities on CT chest Last bronch 12/08, but prior to acute worsening of dyspnea (12/11), infectious workup negative. Plan for bronchoscopy with pulmonary January 11, 2024. - N.p.o. at midnight - Prednisone (50mg) daily (01/08 - ) - Serum fungitell and cryptococcal antigen pending - f/u sputum culture (NGTD &/20) - DuoNeb every 6 hours with additional as needed antitussives available for patient -Will likely need supplemental oxygen therapy on discharge Metastatic breast cancer with mets to bone and liver. Has outpatient oncologist - continue valtrex 500mg daily ptx (initially prescribed iso home prednisone) -No pain currently inpatient.-> Follow-up if patient is still using GROWTH HACKER morphine Portal hypertension with ascites 2/2 liver mets Acute on Chronic malignant ascites. Platysma concerning for possible hepatopulmonary syndrome although unlikely given liver function is not end stage and would be premature. Will get TTE to assess for shunting pathology as possible cause. - TTE ordered 01/08-> f/u when to be completed - Lasix 40mg daily - Continue Home spironolactone 100mg daily -Deferred to patient's primary oncology team regarding her request for as needed paracentesis standing order Anemia Given known poor nutritional status and decreased oral intake likely low iron intake as opposed to iron losses. No other acute findings consistent with bleed. - calculate total iron body deficit -Plan to replete with IV iron 01/10 - AM CBC Hyponatremia Improved since 01/04 Unclear etiology, possibly SIADH iso PNA or poor PO intake or volume overload . Less likely to contribute to patient's complaint of muscle cramps. Other electrolytes normalized as well. - F/u AM BMP, -Continue to encourage p.o. intake when not n.p.o. RUE DVT and PE Dx 11/09/23 -Eliquis held starting a.m.01/08 for [facility] 01/09 Chronic pain Chronic muscle spasms Mood disorder - continue GROWTH HACKER gabapentin 300mg in the morning and afternoon, 600mg at bedtime. Watch for encephalopathy - continue flexeril 5mg BID prn - continue GROWTH HACKER venlafaxine 75mg daily CHECKLIST: L/D/A: Chest port, nasal cannula 2 L Diet: Regular Diet Pain: No acute pain, APAP(hepatically dosed) vs consider IV Dilaudid if developed overnight VTE Prophylaxis: GROWTH HACKER Eliquis 5mg bid Held (01/08 AM dose = first held dose) Code: Full Code VTE Prophylaxis Held for Bronchoscopy 01/09 Discharge Plan Pending Clinical Course Consults Pulmonology, Appreciate recs KAYLAH YOUNG MD 01/10/2024 5:18 PGY-1 Resident Internal Medicine Associated attestation - Masha Russell MD - 01/11/2024 0707 EDT Attending Attestation I interviewed and examined the patient. I have personally reviewed interval events, laboratory data, and imaging. I discussed the case with the inpatient resident team. I agree with findings and planof care as documented by the resident (or have edited in blue). Feeling somewhat better today. Abdomen much improved without significant recurrence of ascites yet.Plan to undergo bronch with pulm today. Stable persistent anemia with iron studies consistent with deficiency - will give IV iron inpatient Rest of detailed plan and assessment as per below. Documentation and notation for evaluation of patient on 01/10/24. Masha Russell MD Hospitalist Physician 01/11/24 at 7:07 * Tomeka Peck - 01/09/2024 1520 EDT Patient is at ECHO. CM will follow up with patient for assessment tomorrow. ABEL Sarah, M. Ed. [employer] Social Work and Case Management * Chen Montoya RN - 01/09/2024 0853 EDT Procedure: Paracentesis Patient arrived from holding to IR 26 at 0851. Patient name and verified using armband and verbally. Consent completed and verified. Patient is alert and oriented x 4, able to follow commands with all extremities, able to make needs known. No complains of pain. Patients allergies, medications and lab results reviewed. Patient educated on procedure, patient verbalized understanding. Patient placed in supine position on stretcher. Vital signs assessed. A pre-procedure ultrasound was completed to assess fluid volume. Procedure necessity completed. Sterile prep of patient's right abdomen with duraprep disinfecting solution by [facility] in the usual sterile fashion in accordance with manufacturers recommendations. Ultrasound guidance utilized to access fluid, catheter placed without incident. Total fluid volume removed: 2200 mLs Fluid color: yellow, clear Specimens sent to the lab for all ordered testing. Catheter removed and band aid applied to puncture site. Procedure completed by GMS. Procedure well tolerated by patient. No complaints of pain. Vital signsstable. Patient transported back to in stable condition. Discharge instructions placed in [facility] to be reviewed with patient. * Kaylah Najera MD - 01/09/2024 0706 EDT Medical Oncology Progress Note Service Date: 01/09/24 Admit Date: 01/08/2024 Reason for Admission: 63 y.o. female admitted with a chief complaint of Acute on subacute dyspnea and now with a principal diagnosis of metastatic breast cancer with resultant portal hypertension from liver metastases. 24 Hour Events: Admission, paracentesis with IR 01/08 morning Subjective/Objective Subjective Patient still feeling short of breath. Patient and report feeling a lack of explanation fortreatment recommendations in past and request better clarification this admission. Denies: Bright red blood per rectum, bloody sputum, blood in urine, abdominal pain, dizziness, excessive fatigue Endorses: Platysma, history of blood-tinged sputum on pillow at home (Not since admission). Bowel movements 1-3 times per day since paracentesis 2 weeks ago. No diarrhea. Regular urine production. Nobloody nose. Review of Systems A ten point review of systems was performed and was negative except for pertinentpositives noted above. Objective Vital Signs Temp: [36.4 ??C (97.5 ??F)-37.3 ??C (99.1 ??F)] , BP: (102-126)/(51-71) , Heart Rate: [87 BPM-89 BPM] , SpO2: [82 %-100 %] , Resp: [16-24] Physical Exam GEN: alert, pleasant, in NAD, very dyspneic HEENT: EOMi, nasal cannula in place on 2 L, anicteric sclera CV: RRR, no murmurs PULM: Increased work of breathing with supraclavicular retractions, crackles diffusely to left air perez, crackles in the right upper air perez, decreased breath sounds to left lower air perez. ABD: Non distended, no guarding EXT: WWP, no p edema NEURO: AOx3, no focal deficit PSYCH: appropriate affect for current situation Is PICC or central line present? Yes, it is still present. The line is still required. Port present Medications Reviewed Labs Reviewed Results for orders placed or performed during the hospital encounter of 01/08/24 (from the past 24 hour(s)) COMPLETE BLOOD COUNT AND DIFFERENTIAL Result Value Ref Range WBC 7.78 4.00 - 12.40 K/cmm RBC 2.23 (L) 3.86 - 5.04 M/cmm Hemoglobin 7.9 (L) 11.6 - 15.2 g/dL HCT 23.6 (L) 34.9 - 44.4 % MCV 106 (H) 81 - 98 fL MCH 35.4 (H) 26.7 - 33.3 pg MCHC 33.5 32.1 - 35.9 g/dL RDW-CV 24.2 (H) <14.7 % RDW-SD 93.9 (H) <50.4 fl PLT 269 141 - 377 K/cmm MPV 11.0 9.5 - 12.7 fL % Neutrophils 79.2 % % Lymphocytes 7.3 % % Monocytes 11.2 % % Eosinophils 0.5 % % Basophils 0.3 % % Immature Grans 1.5 % Absolute Neutrophils 6.16 2.20 - 8.85 K/cmm Absolute Lymphocytes 0.57 (L) 1.09 - 3.30 K/cmm Absolute Monocytes 0.87 (H) 0.10 - 0.80 K/cmm Absolute Eosinophils 0.04 0.03 - 0.61 K/cmm ABS Basophils 0.02 0.01 - 0.11 K/cmm Absolute Immature Grans 0.12 (H) 0.00 - 0.06 K/cmm Type of Differential: Auto COMPREHENSIVE METABOLIC PANEL (CMP) Result Value Ref Range Sodium 128 (L) 136 - 145 mmol/L Potassium 4.3 3.5 - 5.0 mmol/L Chloride 102 96 - 110 mmol/L CO2 Total 23 22 - 32 mmol/L Glucose 145 (H) 70 - 99 mg/dl BUN 19 10 - 26 mg/dL Creatinine 0.68 0.52 - 1.04 mg/dL eGFR 98 >60 mL/min/1.73m2 Total Protein 4.9 (L) 6.3 - 8.2 g/dL Albumin 2.4 (L) 3.4 - 4.9 g/dL Alkaline Phosphatase 368 (H) 38 - 126 U/L AST 41 15 - 46 U/L ALT 39 (H) <35 U/L Bilirubin, Total 1.3 <1.4 mg/dL Calcium 7.9 (L) 8.5 - 10.5 mg/dL Albumin/Globulin Ratio 1.0 1.0 - 2.5 Anion Gap 3 (L) 5 - 14 mmol/L SARS COV2, FLU A/B, RSV DETECT BY PCR Specimen: Nasopharynx; Swab Result Value Ref Range FLU A RNA Result (FLARES) Negative Negative FLU B RNA Result (FLBRES) Negative Negative RSV RNA Result (RSVRES) Negative Negative COVID-19 rt-PCR Result Negative Negative EXPANDED RESPIRATORY VIRAL PANEL, PCR (DOES NOT INCLUDE INFLUENZA OR RSV) Specimen: Nasopharynx; Swab Result Value Ref Range Paraflu Type 1 Rslt (PF1RES) Negative Negative Paraflu Type 2 Rslt (PF2RES) Negative Negative Paraflu Type 3 Rslt (PF3RES) Negative Negative Paraflu Type 4 Rslt Negative Negative Rhinovirus RNA Rslt (RVRES) Negative Negative Metapneumovirus RNA Rslt (HMVRES) Negative Negative Adenovirus DNA Rslt (ADVRES) Negative Negative COMPLETE BLOOD COUNT Result Value Ref Range WBC 8.60 4.00 - 12.40 K/cmm RBC 2.08 (L) 3.86 - 5.04 M/cmm Hemoglobin 7.4 (L) 11.6 - 15.2 g/dL HCT 22.2 (L) 34.9 - 44.4 % MCV 107 (H) 81 - 98 fL MCH 35.6 (H) 26.7 - 33.3 pg MCHC 33.3 32.1 - 35.9 g/dL RDW-CV 24.5 (H) <14.7 % RDW-SD 91.6 (H) <50.4 fl PLT 124 (L) 141 - 377 K/cmm MPV 11.9 9.5 - 12.7 fL HN LAB CBC SMEAR REVIEW Result Value Ref Range Differential Comment Slide was examined by a technologist to verify the WBC and/or platelet count. LEGIONELLA ANTIGEN DETECTION, URINE Specimen: Urine, Random Urine Result Value Ref Range Legionella Antigen Detection Negative Negative STREPTOCOCCUS PNEUMONIAE ANTIGEN, URINE Specimen: Urine, Random Urine Result Value Ref Range Strep Pneumo Ag Detection, Urine Negative Negative *Note: Due to a large number of results and/or encounters for the requested time period, some results have not been displayed. A complete set of results can be found in Results Review. Micro Reviewed Imaging CXR:Impression: Interposed areas of atelectasis and airspace disease similar as on the comparison CT 3 days prior concerning for bilateral pneumonia. Differential consideration would include drug reaction Assessment/Plan Assessment Sunshine Subramanian is a 63 y.o. female with a PMHx significant for metastatic ER+ breast cancer(mets to liver c/b portal HTN, lymphadenopathy, bony mets), UE thrombus and PE on Eliquis sine 11/09/23, HSV 2, GERD, and depression who is currently admitted for dyspnea/hypoxia with unconfirmed etiology but likely Enhertu-mediated pneumonitis. Pulmonology is following and plan is for bronchoscopy tomorrow. Unlikely to be infectious given the long course progressive nature, no fevers or systemic sx, no productive cough or URI sx and negative infectious work up. Hospital Day #1 Consulted pulmonology - q6h Duo Nebs - Bronch Tomorrow (NPO @12 AM & Eliquis held) - Legionella, strep pneumo neg - D/C'd Abx - increased Lasix to 40mg from 20mg Plan Acute hypoxic respiratory failure Ground glass opacities on CT chest Last bronch 12/08, but prior to acute worsening of dyspnea (12/11), infectious workup negative. Plan for bronchoscopy with pulmonary January 10, 2024. - NPO @12AM 01/09 - Prednisone (50mg) daily (01/08 - ) - Serum fungitell and cryptococcal antigen pending - f/u sputum culture - d/c'd ABX - DuoNeb every 6 hours with additional as needed antitussives available for patient Metastatic breast cancer with mets to bone and liver. Has outpatient oncologist - continue valtrex 500mg daily ptx (initially prescribed iso home prednisone) Portal hypertension with ascites 2/2 liver mets Acute on Chronic malignant ascites. Platysma concerning for possible hepatopulmonary syndrome although unlikely given liver function is not end stage and would be premature. Will get TTE to assess for shunting pathology as possible cause. - TTE ordered 01/08 - Para w/ IR 01/08 completed - Increased Lasix 40mg daily (01/08) - Continue Home spironolactone 100mg daily Anemia Likely anemia of chronic disease in the setting of known malignancy but due to multiple recent hospitalizations could be phlebotomized . - Iron studies pending a.m.01/09 - AM CBC, reassess daily for need Hyponatremia Improved since 01/04 Unclear etiology, possibly SIADH iso PNA or poor PO intake or volume overload - F/u AM BMP -Reassess daily labs for necessity RUE DVT and PE Dx 11/09/23 -Eliquis held starting a.m.01/08 for [facility] 01/09 Chronic pain Chronic muscle spasms Mood disorder - continue GROWTH HACKER gabapentin 300mg in the morning and afternoon, 600mg at bedtime. Watch for encephalopathy - continue flexeril 5mg BID prn - continue GROWTH HACKER venlafaxine 75mg daily CHECKLIST: L/D/A: Chest port, nasal cannula 2 L Diet: N.p.o. at midnight for bronchoscopy Pain: No acute pain today, consider IV Dilaudid if developed overnight VTE Prophylaxis: GROWTH HACKER Eliquis 5mg bid Held (01/08 AM dose = first held dose) Code: Full Code VTE Prophylaxis Held for Bronchoscopy 01/09 Discharge Plan Pending Clinical Course Consults Pulmonology, Appreciate recs KAYLAH YOUNG MD 01/09/2024 19:05 PGY-1 Resident Internal Medicine Associated attestation - Masha Russell MD - 01/09/2024 1930 EDT Attending Attestation I interviewed and examined the patient. I have personally reviewed interval events, laboratory data, and imaging. I discussed the case with the inpatient resident team. I agree with findings and planof care as documented by the resident (or have edited in blue). In brief, this is a 63 year old female with comorbidities as below, most notable for metastatic breast caner (skin, lung, mediastinal nodes, liver with assoc portal HTN ascites, on Enhertu since 10/18/23) who presented for ongoing progressive shortness of breath. Etiology to her shortness of breath is likely multifactorial with diaphragm compression from her recurrent ascites, progressive anemia (no significant bleed history), and recent GGO on CT chest - concerning for Trastuzumab pneumonitis atplay. Her SOB did NOT improve post para today. Interestingly her shortness of breath described is consistent with platypnea which would additionally raise the question of hepatopulm syndrome (seems less likely), PFO/ASD, or progressive pericardial effusion (prior trivial in October). Will repeat TTE with bubble, consulted pulm to assess if need for repeat bronchoscopy/other infectious work up and assistance with steroids. Will attempt to uptitrate diuretics as able to work on better control of ascites - though no significant effect on accumulation from current dose (on 100 emy/20 furosemide since 12/11). May just need weekly IR milena outpatient to assist with symptom control. I spent a total of 50 minutes on the date of this encounter meeting with the patient and reviewing documentation/coordinating care as described in the above note. Rest of detailed plan and assessment as per below. Masha Russell MD Hospitalist Physician 01/09/24 at 19:30 * Mariaa Funes RN - 01/09/2024 0352 EDT FOUR EYES SKIN ASSESSMENT Four Eyes skin assessment was performed on admission to the unit by Mariaa Funes RN and Indu Pond RN. Patient has the following devices at the time of this assessment: Chest port . Device related pressure injury present? No All skin intact verified by: Mariaa Funes RN and Indu Pond RN. Last Nikolai Score: 19 01/09/2024 3:52 documented in this encounter H&P Notes * Chelsea Logan MD - 01/11/2024 1521 EDT The preoperative history and physical which was performed within 30 days of this procedure has been reviewed and the clinically appropriate elements of the physical examination have been repeated. There are no changes to the documented history and physical or if so such changes are documented below Chelsea Logan MD 01/11/2024 15:21 Source Note - James Ledesma MD - 01/09/2024 10:47 EDT Images from the original note were not included. Inpatient Pulmonary Consult Admit Date: 01/08/2024 Date of Service: 01/09/2024 Requesting Physician: Dr. Masha Russell Reason for Consult: repeat bronchoscopy and/or steroid recommendations for pneumonitis HPI: 63 y/o female with history of metastatic ER+ breast cancer (mets to liver c/b portal hypertension with ascites), GERD, and DVT/PE diagnosed diagnosed October (apixaban since) who was admitted to medical oncology service yesterday for shortness of breath and hypoxia. Follows with Dr. Carreon for breast cancer. Diagnosed 2016. Switched from Orserdu to Enhertu (10/18/23) due to issues with constipation. Recently started cycle 4 day 1 of Enhertu (fam-trastuzumab deruxtecn-nxki) on 12/20/23. She has been having shortness of breath since , progressively worsening over the past month. CT chest 10/03/23 showed slight decrease in size of enlarged right internal thoracic lymph node,otherwise no parenchymal changes. On 11/15, started on prednisone 10 mg by oncologist for appetite/energy. Seen by Dr. Leach outpatient on 11/23/23 for chronic cough and shortness of breath. Underwent bronchoscopy on 12/09/23. Mucoid secretions noted in trachea and airways, otherwise no endobronchial lesions or bleeding. No fluid studies at that time. 3 admitted for AMS thought to be medication-induced 2/2 gabapentin, not hepatic encephalopathy. Gabapentin decreased to 200mg TID. 12/19 C4D1 Enhertu. 12/26: diuretics increased to spironolactong 100mg, lasix 20mg daily. 01/02 last paracentesis. 01/04 CT chest with patchy GG opacities concerning for infection vs pneumonitis vs volume loss. Call with pulm: recommended ER, suggested 1mg/kg prednisone but pt has not actually started increase steroids to 1mg/kg but not done yet Summary of cancer therapy: 10/2016- 03/2018 letrozole + palbociclib (poor tolerance, mouth sores) then single agent letrozole until 02/2020 Fulvestrant + abemaciclib until 05/2020 stopped for diarrhea then single agent fulvestrant until 06/2021 then adds palbociclib 11/2021 - 06/2023 capecitabine 3- 09/2023 Orserdu (elecestrant): Her scans were relatively stable disease however LFTs, persistentcough suggest progression. CA 27-29 >800 10/18/23 C#1 T-dxd (Enhertu) Medications Inhalers: none Apixaban Prednisone Lasix 20 mg Spironolactone 100 mg Omeprazole 40 mg Gabapentin Morphine Flexerril Social Smoking: never Alcohol: 1 glass wine/week Illicit substances: denies ever No known hazardous exposures Housing: no known mold Pets: none Family Father had lung cancer. Otherwise, no known rheumatologic or congenital conditions. Allergies Allergies Allergen Reactions Amoxicillin Other (See Comments) and Rash Red rash Sulfa (Sulfonamide Antibiotics) Hives Light lavender rash Sulfamethoxazole-Trimethoprim Rash Review of Systems: A 12 point review of systems was performed and is negative aside from what is mentioned above, within the HPI. Subjective/Objective Objective/Physical Exam: VS: Patient Vitals for the past 8 hrs: BP Resp Temp SpO2 O2 Flow Rate (L/min) O2 Device 01/09/24 0957 129/67 -- -- 99 % 2 l/min Nasal cannula 01/09/24 0910 113/63 -- -- 94 % -- -- 01/09/24 0908 (!) 142/60 16 -- 92 % 2 l/min Nasal cannula 01/09/24 0719 -- -- -- -- 2 l/min Nasal cannula 01/09/24 0606 119/59 -- 36.9 ??C (98.5 ??F) 93 % 2 l/min Nasal cannula Physical Exam: Gen: Alert and cooperative. HEENT: Oropharynx is without erythema or exudate. Lungs: Breath sounds are clear bilaterally without rales, rhonchi or wheezing. Mild crackles. Heart: Regular rate/rhythm, no extra heart sounds appreciated. with no appreciable gallops, rubs, murmurs or extra heart sounds. Extremities: Warm without clubbing, edema or cyanosis. Data Review: Labs: reviewed. Positive JODY (1:640) in 2008. Micro: Negative COVID, flu, RSV, expanded viral 01/08/24. Negative Legionella/Strep 01/09/24. No micro history. Radiology: Most recent echocardiogram: 10/17/23 Left ventricular EF 55-60% No significant valvular pathology CT chest (01/05/24) Diminished lung volumes with evidence of atelectasis and/or scarring bilaterally, patchy ground glass opacity (new compared to most recent study October 2023), large amount of ascites. 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 CT with new grand glass opacities. Differential includes trastuzumab- induced interstitial pneumonitis vs. infection. Bronchoscopy indicated for further diagnostic clarification. Recommendations Serum fungitell and cryptococcal antigen Continue prednisone 50 mg daily Scheduled DuoNeb q6h NPO and hold apixaban for tentative bronchoscopy tomorrow (would be afternoon at earliest) Anticipate discharge on home oxygen Patient seen and plan discussed with Dr. Logan. James Ledesma MD Internal Medicine PGY-3 * Bambi Porter MD - 01/08/20241909 EDT Medical Oncology Admission History & Physical Service Date: 01/08/2024 Admit Date: 01/08/2024 15:40 Primary Care Provider: Linda Blancas Chief Complaint: dyspnea HPI Sunshine Subramanian is a 63 y.o. female with a PMHx of metastatic ER+ breast cancer (mets to liver c/b portal HTN, lymphadenopathy, bony mets), UE thrombus and PE on eliquis sine 11/09/23, HSV 2, GERD, and depression who presents today for dyspnea/hypoxia. Reports dyspnea since but acutely worse since her admission 12/11. Usually would get better with para but not recently. Reports a cough with any movement or deep breaths, sometimes so so hard she throws up. Sputum production minimal, / mornings has a nickel sized phlegm but otherwise does not cough anything up, even if her cough sounds wet. Denies fever/chills. Has baseline abdominal pain 2/2 ascites. Notes a recent change in bowel movements; is typically very constipated even with miralax, but since her paracentesis on Tuesday, has had loose Bms four days in a row without miralax. Has been in contact extensively with her campaign coordinator, marketing database coordinator, and oncologist about recent symptoms: - 11/15 started on prednisone 10mg daily for appetite/energy by onc - 12/08 bronch, reportedly unremarkable - 12/11-3 admitted for AMS thought to be medication-induced 2/2 gabapentin, not hepatic encephalopathy. Gabapentin decreased to 200mg TID - 12/19 C4D1 Enhertu - 12/26: diuretics increased to spironolactong 100mg, lasix 20mg daily - 01/02 last para - 01/04 CT chest with patchy GG opacities concerning for infection vs pneumonitis vs volume loss - 01/05: telehealth with onc: recommended ER - 01/05: call with pulm: recommended ER, suggested 1mg/kg prednisone but pt has not actually startedincrease steroids to 1mg/kg but not done yet In the ED, satting well on 2L NC, afebrile, tachy to 110s, normotensive. Labs Na 128, AG 3, ALT 39,Alk Phos 368, Hgb 7.9, WBC/plt wnl, COVID/flu/RSV neg, CXR with Interposed areas of atelectasis andairspace disease similar as on the comparison CT 3 days prior concerning for bilateral pneumonia ordrug reaction. Feeling much better with supplement oxygen. Oncologic History per Telemedicine with Alisson Carreon MD (01/06/2024) 1. 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 Ultrasound performed in [place] identifying an irregular heterogeneous soft tissue mass measuring 1.2 x 1.2 x 1.5 cm. b. Two punch biopsies near the site of the skin changes the right breast perfomed by Dr Carreno 10/21/2016; Pathology identified an invasive ductal type carcinoma involving the epidermis and dermis ofthe skin, nuclear grade 2, which was ER+80%, AZ+20%. HER-2 1+ by IHC. ANNE MARIE revealed [...] breast tumor 07/07/17 and placement of tissue environmental auditor. 1.9 cm tumor at time ofsurgery, well differentiated, with LVI present, and negative margins. G. Biopsy left cervical LN 02/11/20 - consistent with metastatic adenocarcinoma consistent with breast primary H. Fulvestrant initiated 03/06/20; abemaciclib initiated 03/31/20 discontinued 06/01 due to diarrhea; palbociclib initiated March 2021 I. Capecitabine initiated December 2021 J. Y90 infusion to liver by Dr Moya 04/08/22 and again 05/14/22 K. [facility] testing Apr 2022: ESR1 E380Q mutation (no PIK3CA mutation) L. Lung biopsy 06/22/23 - adenocarcinoma consistent with metastatic breast cancer; ER+ >90%, AZ < 5%; HER2 2+ equivocal; [place] FISH testing negative M. Elacestrant initiated early August 2023 Potential future treatment options: trodelvy, various chemo's (eribulin, gem/cis, taxane/abraxane, Navelbine, adriamycin/doxil) Summary of therapy: 10/2016- 03/2018 letrozole + [...] CA 27-29 >800 10/18/23 C#1 T-dxd (Enhertu) Review of Systems A complete 10 point ROS was performed and pertinent positive and negative findings listed in HPI, otherwise negative. Past Medical History: Diagnosis Date Acquired spondylolisthesis Activity, other involving cardiorespiratory exercise snow shoeing Allergy Arthritis right big toe Back pain spinal fussion no issues currently 08/25/20 Breast cancer ([facility]) 11/2003 DCIS - right breast Breast cancer, right ([facility]) Depression 08/25/20 well controlled Environmental allergies Exercise involving walking GERD (gastroesophageal reflux disease) well controlled 08/25/20 H/O spinal fusion L3-S1 spinal fusion 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 History of general anesthesia Immunosuppressed status ([facility]) 12.11.21 Breast cancer stage 4 Liver disease 10.12.23 Acsitiesm Lumbar radicular syndrome Nausea & vomiting Numbness Pulmonary embolism ([facility]) 11.11.23 Reactive airway disease 09.12.23 Shortness [...] - [place] no complications BREAST SURGERY 08/2018 environmental auditor placed right breast - [place] no complications CARPAL TUNNEL RELEASE 200705/07/2019 beir block - no complications EYE SURGERY Partially detached retina FOOT SURGERY 05/2021 right big toe fused, right little toe screw FRACTURE SURGERY [place]rell fractures in both feet,right big toe fusion LIPOMA RESECTION 200005/07/2019 [place] no complications [place] INSJ/RPLCMT BREAST IMPLANT Feb MASTECTOMY Bilateral 05/30/2019 Exchange right tissue environmental auditor to silicone implant, exchange of left implant for matching performedby Tylor Boss MD at [facility] Social History Tobacco Use Smoking status: Never Passive exposure: Never Smokeless tobacco: Never Substance Use Topics Alcohol use: Not Currently Alcohol/week: 1.0 standard drink of alcohol Types: 1 Glasses of wine per week Family History Problem Relation Age of Onset Cancer Father Lung cancer Heart Disease Father Stroke Mother Mental Illness Mother Bipolar *Other(comment) Sister SA valve failure Cancer Brother 59 esophageal Stroke Brother Blot clot in his sleep Liver Disease Brother Cancer Maternal Uncle bladder Breast Cancer Paternal Aunt 35 Cancer Paternal Aunt 35 breast Cancer Paternal Aunt Breast cancer Medications Prior to Admission Medication Sig apixaban (ELIQUIS) 5 mg tablet Take 1 Tablet by mouth 2 times daily. calcium-vitamin D (OS-CHAR D) 500 mg(1,250mg) -200 unit per tablet Take 1 Tablet by mouth 2 times daily with breakfast and dinner. cholecalciferol, Vitamin D3, 25 mcg (1,000 unit) tablet Take 1 Tablet by mouth daily. cyclobenzaprine (FLEXERIL) 5 mg tablet Take 1 Tablet by mouth 2 times daily as needed. dexAMETHasone (DECADRON) 4 mg tablet Take 2 Tablets by mouth daily. Take on days 2 and 3 after chemotherapy. (Patient not taking: Reported on 01/08/2024) furosemide (LASIX) 20 mg tablet Take 1 Tablet by mouth daily. gabapentin (NEURONTIN) 100 mg capsule Take 2 Capsules by mouth 3 times daily for 30 days. morphine (MS IR) 15 mg tablet Take 0.5 Tablets by mouth every 4 hours as needed for Pain. Daily Max: 45 mg MULTIVITS W-CA,FE,OTHER MIN (WOMEN'S DAILY FORMULA ORAL) Take by mouth daily. omeprazole (PRILOSEC) 40 mg capsule Take 1 Capsule by mouth 2 times daily. polyethylene glycol 3350 (MIRALAX) 17 gram packet Take 17 g by mouth daily as needed for up to 30 days for Constipation. predniSONE (DELTASONE) 10 mg tablet Take 1 Tablet by mouth daily with breakfast. prochlorperazine (COMPAZINE) 10 mg tablet Take 1 Tablet by mouth every 6 hours as needed for Nausea. RED YEAST RICE EXTRACT ORAL Take 1,200 mg by mouth daily. 600mg 2x a day senna (SENOKOT) 8.6 mg tablet Take 2 Tablets by mouth daily for 30 days. spironolactone (ALDACTONE) 50 mg tablet Take 1 Tablet by mouth daily. (Patient taking differently: Take 2 Tablets by mouth daily.) valACYclovir (VALTREX) 500 mg tablet Take 1 Tab by mouth daily. venlafaxine (EFFEXOR-XR) 75 mg XR capsule Take 1 Capsule by mouth daily for 360 days. Last reviewed on 01/06/2024 17:39 by Alisson Carreon MD Allergies Allergen Reactions Amoxicillin Other (See Comments) and Rash Red rash Sulfa (Sulfonamide Antibiotics) Hives Light lavender rash Sulfamethoxazole-Trimethoprim Rash Objective Vitals Temp: [36.4 ??C (97.5 ??F)-37.3 ??C (99.1 ??F)] , Heart Rate: [89 BPM] , Pulse: [117] , Resp: [16-24] , BP: (113-126)/(51-71) , SpO2: [82 %-100 %] , O2 Flow Rate (L/min): 2 l/min Numeric Pain Level (Scale 1-10): 9 Weight: Weight : 54.4 kg (120 lb) Body mass index is 22.67 kg/m??. Physical Exam General: NAD, reclined in bed, pleasantly conversant, responding appropriately HEENT: NC/AT, no scleral icterus CV: RRR, no MGR Resp: CTAB Abd: soft, NTTP, bowel sounds present, distended, fluid wave present Ext: 1+ pitting edema to proximal young noted bilaterally Neuro: moving all 4 extremities spontaneously Port in right upper chest with c/d/I dressing Labs I have personally reviewed Recent Labs 01/08/24 1710 WBC 7.78 RBC 2.23* HGB 7.9* HCT 23.6* MCV 106* MCH 35.4* MCHC 33.5 PLT 269 NEUTROABS 6.16 Recent Labs 01/08/24 1710 NA 128* K 4.3 CL 102 CO2 23 BUN 19 CREATININE 0.68 CALCIUM 7.9* LABALBU 2.4* Recent Labs 01/08/24 1710 TBIL 1.3 ALKPHOS 368* AST 41 ALT 39* Imaging XR CHEST PORTABLE 1 VIEW Result Date: 01/08/2024 Interposed areas of atelectasis and airspace disease similar as on the comparison CT 3 days prior concerning for bilateral pneumonia. Differential consideration would include drug reaction. [id number] CT CHEST W CONTRAST Result Date: 01/05/2024 [...] spleen with a large amount of ascites. [id number] IR PARACENTESIS-RADIOLOGY Result Date: 01/03/2024 Successful, uncomplicated paracentesis using sonographic guidance yielding 3 L of fluid. LUNA Arguelles, PANitaC Interventional Radiology I have personally reviewed the images and the above interpretation and agree with the findings. [id number] Assessment Sunshine Subramanian is a 63 y.o. female with a PMHx significant for metastatic ER+ breast cancer(mets to liver c/b portal HTN, lymphadenopathy, bony mets), UE thrombus and PE on eliquis sine 11/09/23, HSV 2, GERD, and depression who presents today for dyspnea/hypoxia. Etiology unclear, possibly Enhertu- mediated pneumonitis or PNA. Will treat empirically for both bacterial PNA and drug-induced pneumonitis and plan to call pulmonology for possible bronch in the AM. Plan Acute hypoxic respiratory failure Ground glass opacities on CT chest Last bronch 12/08, but prior to acute worsening of dyspnea (12/11), and even more acute worsening of sx within the past few days - NPO in case of bronch tomorrow AM - 1mg/kg prednisone (50mg) daily starting tomorrow AM. Deferring tonight as she appears comfortable/stable on 2L NC and has had recent issues with encephalopathy - legionella, strep pneumo pending - COVID/flu/RSV/EVRP negative - sputum culture pending, requested nurse attempt to collect expectorated phlegm in the morning - CAP coverage for now: 5d CTX and 3d azt - tessalon and guaifenesin prn for cough Expanded viral panel pending Metastatic breast cancer with mets to bone and liver - hold GROWTH HACKER prednisone 10mg daily (rx'ed 11/15 for energy/appetite) - continue valtrex 500mg daily Portal hypertension with ascites 2/2 liver mets Last para 01/02, feels like her ascites has reaccumulated - consider para in AM - continue GROWTH HACKER lasix 20mg daily, spironolactone 100mg daily Hyponatremia Improved since 01/04 Unclear etiology, possibly SIADH iso PNA or poor PO intake or volume overload - as is improving, CTM RUE DVT and PE Dx 11/09/23 - given recency of diagnosis, will continue GROWTH HACKER eliquis 5mg BID. May need to be held in the future for bronch/para/etc but will continue for now given uncertainty of plan. Chronic pain Chronic muscle spasms Mood disorder - continue GROWTH HACKER gabapentin 300mg in the morning and afternoon, 600mg at bedtime. Watch for encephalopathy as this was the dosage she was on when she was admitted 12/11-3 - continue flexeril 5mg BID prn - continue GROWTH HACKER venlafaxine 75mg daily VTE Prophylaxis Pharmacologic Prophylaxis: GROWTH HACKER eliquis 5mg bid Code: Full Code Discharge Plan Home or self care Consults Consider pulm Admission status Inpatient admission due to anticipated duration of hospitalization is two midnights or greater due to acute hypoxic respiratory failure. JAISON CEVALLOS MD 01/09/2024 1:12 Internal Medicine, PGY-2 ATTENDING ATTESTATION Date of service: 01/08/2024 I have interviewed and examined the patient. I personally reviewed laboratories studies, radiographic study reports, and prior records. I discussed the case with Dr. Russell (ED provider) and Dr. Cevallos (medicine resident). I agree with the findings and plan of care as documented in the note above except as noted with changes in blue. Anticipate require inpatient length of stay greater than two midnights. Favor repeat paracentesis before pursuing bronch (if pursued) Next dose of anticoagulation ordered for 0900 Bambi Porter MD Hospitalist 01/09/2024 4:42 documented in this encounter Procedure Notes * Torito Gamboa - 01/18/2024 1317 EDT Bedside Procedure Note Paracentesis Bedside Date/Time:01/18/2024 Performed by: Torito Gamboa MD Authorized by: Seven Mcghee MD Consent: Verbal consent obtained. Risks and benefits: risks, benefits and alternatives were discussed Consent given by: Patient Patient understanding: Patient states understanding of the procedure being performed Patient consent: The patient's understanding of the procedure matches consent given Procedure consent: Procedure consent matches procedure scheduled Relevant documents: Relevant documents present and verified Test results: Test results available and properly labeled Site marked: The operative site was marked x2 Patient identity confirmed: Verbally with patient Anesthesia: Local infiltration Anesthesia: Local Anesthetic: Lidocaine 1% without epinephrine Sedation: Patient sedated: No Preparation: Patient was prepped and draped in the usual sterile fashion. A first attempt was made but unable to obtain any ascitic fluid, a new site was then cleaned and prepped after identifying a pocket with successful retrieval of asitic fluid Needle gauge: 18 Fluid removed: 1400 (ml) Fluid appearance: cloudy yellow Dressing: Adhesive Dressing Patient tolerance: Patient tolerated the procedure well with no immediate complications Comments: Did you inoculate at least 10mL of ascitic fluid into aerobic and anaerobic blood culturebottles at the bedside? Yes Torito Gamboa MD * Jackie Juan MD - 01/12/2024 1438 EDTAssociated Order(s): Paracentesis Bedside Post-Procedure Diagnose(s): Malignant ascites Bedside Procedure Note Paracentesis Bedside Date/Time: 01/12/2024 13:39 Performed by: Jackie Juan MD Authorized by: Jackie Juan MD Consent: Verbal consent obtained. Risks and benefits: risks, [...] to verify the correct patient, procedure, equipment, marketing support specialist and site/side marked as required. Initial or subsequent exam: subsequent Procedure purpose: therapeutic Indications: abdominal discomfort secondary to ascites Anesthesia: Local Anesthetic: lidocaine 1% without epinephrine Preparation: Patient was prepped and draped in the usual sterile fashion. Puncture site: right lower quadrant Fluid removed: 1000(ml) Fluid appearance: serous Dressinx4 sterile gauze Patient tolerance: patient tolerated the procedure well with no immediate complications JACKIE JUAN MD 01/12/2024 14:38 Associated attestation - Toño Ibarra MD - 01/21/2024 1142 EDT Attending Attestation I was present for the entire procedure and examined the patient on 01/12/24. I personally reviewed laboratories studies, radiographic studies, and prior records. I agree with the findings and plan of care as documented in the note above. Toño Ibarra MD 01/21/2024 11:40 * Chelsea Logan MD - 01/11/2024 1091 EDT Procedure Performed Bronchoscopy - Bronchoscopy, rigid [...] Versed 5 mg Fentanyl 100 mcg 5mL 2% Viscous Lidocaine were used for local anesthesia and conscious sedation. The bronchoscope was inserted through the mouth and the airway examined. Bronchoalveolar Lavage was done using sequential aliquots of saline, with a total instilled of ( 120ml) and a return of (60ml).. The return was <cloudy > in appearance. Medications Versed 5 mg Fentanyl 100 mcg 5mL 2% Viscous Lidocaine Estimated Blood Loss - 2 [...] and pathology. Specimen(s) removed - BELKIS BAL Chelsea Logan MD [facility] Pulmonary/Critical Care Attending pager: [phone] * David Moya MD - 01/09/2024 0959 EDT INTERVENTIONAL RADIOLOGY BRIEF PROCEDURE NOTE Radiologist: Griffin Procedure(s) Performed: Paracentesis Indication/Pre-procedure diagnosis: Ascites Post-procedure diagnosis: Same Condition: Stable Anesthesia: Local without Sedation Approach: Right abd Medications: local lidocaine 1% Contrast: 0 cc Fluoro time: 0 min EBL: None Specimens: Fluid Findings: 2.2 L of clear, straw colored fluid A time-out was completed prior to procedure verifying correct patient, procedure, site, positioning, and special equipment if applicable. Complications: None Recommendations: Per orders. Please refer to final dictated report (Chart Review, Imaging tab in PRISM) for complete findings and recommendations. 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 Admitted 01/07 with shortness of breath and hypoxia found to be in acute respiratory failure has required 3 paracentesis for reaccumulating ascites, had a bronchoscopy 01/09 and ultimately found to have fungal pneumonia. Recommendations Goals of care - see serious illness documentation below as well -Sendy has a very good understanding and recall of her medical conditions as well as prognostic awareness although we did not speak about any specifics except that she would be hospice eligible if she decided not to treat her cancer. -She has restorative goals and is intending on treating her pneumonia and speaking to her oncologist about next cancer treatments. -She is open to having an aspira drain placed for the ascites but she also wants to continue swimming in the [place] and doing the hot tub. -Sendy is a very open to discussing end-of-life planning knowing she is facing her own mortality, is not afraid of dying because of her belief in the afterlife and welcomes serious illness conversations. -Her main goals and hopes at this time are getting her affairs in order, spending as much time withher family as possible being at home on [address] and swimming with her dog. At the same time she is hoping for the miracle drug that we will give her many years. -Most worried about her family and completing her advance directive. -Sendy would like assistance in completing her advance directive, has a copy at her bedside. And facilitating a conversation with Nitish if she still is in the hospital -Full code -did not discuss -Would benefit from an outpatient palliative care appointment please order upon discharge Thank you for involving our team in the care of Sunshine Subramanian. The palliative care team will continue to follow daily. Subjective HPI: Per med oncology note today - Sunshine Subramanian is a 63 y.o. female with a PMHx significant for metastatic ER+ breast cancer (mets to liver c/b portal HTN, lymphadenopathy, bony mets), UE thrombus and PE on Eliquis who presented with dyspnea/hypoxia on 01/07 initially thought to be 2/2 Enhertu-mediated pneumonitis but now s/p bronchoscopy on 01/10 now with positive fungitell. Infectious disease consulted and concern for PJP pneumonia. 01/14 [facility] culture positive for PJP pneumonia. Patient wascontinuing to improve until spiked fever 8/5 AM. Unknown cause of fever. receiving cefepime with broad coverage w/o clear infectious insult to account for yesterdays leukocytosis and new fever. VS improved, WBC resolved, and remains asx. Will tbw Consulting teams regarding plan for current cares and discharge planning. Possible discharge tomorrow. Narrative: Present for visit: Sendy and palliative care (Mandeep Mayfield CLINICAL LABORATORY TECHNOLOGIST and myself) They have been trying to organize a outpatient appointment with palliative care. Her friends have been encouraging her to seek palliative care and she has a good understanding of what it is and the differences between hospice. She cared for both of her parents at the end of their life on hospice. She has also settled for different family members' estates and what is involved. Most worried about her and the need to cohabitate with her and her illness. She knows that there is no winning with this cancer only trying to stay in the game. Social History: Living situation: Lives with her Nitish of 12 years. This is a second marriage for both of them. She has no children but Nitish has 4 sons. 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 Spends free time: Being at home, swimming with her dog Coping: Is very upbeat and positive, proactive real caregiver Spiritual/Nondenominational/Existential Needs: Sienna/Beliefs: Very spiritual Importance of spirituality: Very important Community (sienna or otherwise): Not sure Action (how to integrate into health care): Appreciates meeting with our gauger chief delivery Symptom Inventory: Comments Lack of Energy Present, Moderate Especially with pneumonia and in the hospital Lack of Appetite Present, Moderate Forces herself to eat but does taste food and this encourages her to eat Pain Present, Moderate In her abdomen when the ascites builds up but nothing currently Dry Mouth Absent Weight Loss Present, Mild Has lost about 10 to 15 pounds Feeling Drowsy Present, Moderate Related to not sleeping in the hospital Shortness of Breath Present, Moderate Only when the ascites builds up Constipation Present, Mild Had a BM last night only a problem when the ascites builds up Difficulty Sleeping Present, Moderate Being in the hospital Poor Concentration Absent Nausea Present, Mild Only when the ascites builds up Worrying Present, Severe Shared her worries see above Feeling Sad Present, Mild Occasionally tearful talking about her limited life expectancy Feeling Nervous Deferred Other Muscle cramps severe Keeps her up at night related to the diuretics Objective Palliative Performance Scale Unable to work; able to live at home and care for most personal needs; varying amount of assistanceneeded 60 = Requires occasional assistance, but is able to care for most of his personal needs Vitals BP 96/57 (BP Cuff Location: Left arm, BP Patient Position: Semi fowlers) Pulse 88 Temp 36.5 ??C(97.7 ??F) (Oral) Resp 18 Ht 154.9 cm (61) Wt 54.4 kg (120 lb) SpO2 99% BMI 22.67 kg/m?? Physical Exam In bed, makes needs known, smiles easily, easy conversation able to have a fully engage meaningful conversation Significant Labs/Imaging: GFR 103 sodium 135 hemoglobin 7.6 platelets 131 Relevant Medication Use: She has a high pain threshold has some morphine tablets at home which she rarely uses. Takes gabapentin 300 mg twice daily and 600 mg at bedtime, Effexor XR 75 mg daily, Protonix 40 mg daily Signatures & Attestations This patient was discussed at our interdisplinary meeting. I also spoke with the primary team including the providers, nurses, and wrapper caser in discussion of the care plan. Information for Patients & Caregivers: This is a shared note. We support your right to access your health information in an open, easy manner. We are partners together to improve your health. If you are a patient or caregiver with concerns about this note, please contact us by one of the following ways: Have nursing or your primary team page palliative care while you are hospitalized or visiting during the day Leave a message for us during business hours at [phone] I spent 80 minutes in [id number] with 80minutes in discussion, counseling, and explanation of advance directives and (if done) filling out forms pertaining to the advance directives, excluding timespent in the evaluation and management service. Antoinette Estes NP Palliative Care * Mariaelena, Errol Willis MD - 01/12/2024 5633 EDT Infectious Disease Consult Note Admit Date: 01/08/2024 Date of Service: 01/12/2024 Requesting Physician: Dr. Masha Russell Reason for Consult: + Fungitell HPI: (include onset, location, quality, severity, duration, timing, associating symptoms) (Modified from Dr. Cevallos's note) Ms. Subramanian is a 63 yr old woman with a PMH notable for metastatic ER+ breast cancer - 2017 (mets to liver c/b portal HTN, lymphadenopathy, bony mets), UE thrombus and PE on eliquis sine 11/09/23,HSV 2, GERD, who had a recent hospitalization from 12/11-12/14/23 for abdominal pain and confusion withan essentially negative workup and an unclear etiology. Recently started Enhertu 12/19. Approximately 2-3 months prior to admission she began to have shortness of breath. She also reportscough with movement and deep breaths that on some occasions leads to vomiting. She had been seen marc couple of occasions several months ago at an urgent care center near home with Cxrays that apparently were normal. Recent medical interventions have been noted as follows: - 11/15 started on prednisone 10mg daily for appetite/energy by onc - 12/08 bronch, reportedly unremarkable - 12/11-3 admitted for AMS thought to be medication-induced 2/ gabapentin, not hepatic encephalopathy. Gabapentin decreased to 200mg TID - 12/19 C4D1 Enhertu - 12/26: diuretics increased to spironolactone 100mg, lasix 20mg daily - 01/02 last para - 01/04 CT chest with patchy GG opacities concerning for infection vs pneumonitis vs volume loss - question secondary to Enhertu - (follow chest CT q 9-12 weeks) - hold Enhertu for 6-9 weeks - 01/05: telehealth with onc: significant shortness of breath with minimal activity, constant cough,mostly dry - sats 80% at rest, recommended ER - 01/05: call with pulm: recommended ER, - 01/07 - ED for increasing shortness of breath Her hospital course to date has been characterized by the followin/29 - paracentesis - 200 cc removed yellow clear 01/08 - Pulmonary eval - Trastuzumab interstitial pneumonitis vs infection 01/09 - Bronch with BAL - Prednisone 50 mg daily - relatively normal airways with some whitish secretions seen bilaterally She appears to be symptomatically improved with O2, though has had a fairly rapid increase in her symptoms over the past couple of weeks, infectious workup has been negative to date - fungitell now positive and we are asked to evaluate for additional diagnostic and therapeutic recommendations. Review of Systems: A ten point review of systems was performed and negative except for the following: Past Medical History: has a past medical history of Acquired spondylolisthesis, Activity, other involving cardiorespiratory exercise, Allergy, Arthritis, Back pain, Breast cancer ([facility]) (11/2003),Breast cancer, right ([facility]), Depression, Environmental allergies, Exercise involving walking, GERD (gastroesophageal reflux disease), H/O spinal fusion, Herpes simplex virus (HSV) infection, History of general anesthesia, Immunosuppressed status ([facility]) (12.11.21), Liver disease (10.12.23), Lumbar radicular syndrome, Nausea & vomiting, Numbness, Pulmonary embolism ([facility]) (11.11.23), Reactive airway disease (09.12.23), Shortness of breath (09.12.23), Swelling (11.11.23), and Wears glasses. From Dr. Vinson note - 01/06/24 - Oncologic History Metastatic breast cancer presenting as a right breast recurrence with skin changes at lateral aspect of her left implant spring 2016 after treatment of ER+ DCIS (declined radiation and shah) a. Ultrasound performed in [place] identifying an irregular heterogeneous soft tissue mass measuring 1.2 x 1.2 x 1.5 cm. b. Two punch biopsies near the site of the skin changes the right breast perfomed by Dr Carreno 10/21/2016; Pathology identified an invasive ductal type carcinoma involving the epidermis and dermis ofthe skin, nuclear grade 2, which was ER+80%, AZ+20%. HER-2 1+ by IHC. ANNE MARIE revealed [...] breast tumor 07/07/17 and placement of tissue environmental auditor. 1.9 cm tumor at time ofsurgery, well differentiated, with LVI present, and negative margins. G. Biopsy left cervical LN 02/11/20 - consistent with metastatic adenocarcinoma consistent with breast primary H. Fulvestrant initiated 03/06/20; abemaciclib initiated 03/31/20 discontinued 06/01 due to diarrhea; palbociclib initiated March 2021 I. Capecitabine initiated December 2021 J. Y90 infusion to liver by Dr Moya 04/08/22 and again 05/14/22 . [facility] [place] ONE testing Apr 2022: ESR1 E380Q mutation (no PIK3CA mutation) L. Lung biopsy 06/22/23 - adenocarcinoma consistent with metastatic breast cancer; ER+ >90%, AZ < 5%; HER2 2+ equivocal; [place] FISH testing negative M. Elacestrant initiated early August 2023 Potential future treatment options: trodelvy, various chemo's (eribulin, gem/cis, taxane/abraxane, Navelbine, adriamycin/doxil) Summary of therapy: 10/2016- 03/2018 letrozole + [...] CA 27-29 >800 10/18/23 C#1 T-dxd (Enhertu) Past Surgical History: has a past surgical history that includes Carpal tunnel release (2007); lipoma resection (2000); Breast surgery (01/30/2004); Breast reconstruction (01/30/2004); Breast surgery(08/2018); Breast reconstruction (05/2018); pr insj/rplcmt breast implant feb mastectomy (Bilateral, 05/30/2019); back surgery (12/2011); Foot surgery (05/2021); eye surgery (); and fracture surgery. Medications: MAR reviewed. 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 Exam: Sitting up in chair in NAD< awake, alert appropriate, responsive,friend present, on phone Head/Neck: no oral lesions, no jaundice Heart: Regular without ES appreciated Lungs: crackles posterior bases Abdomen: soft, distended, nontender : no CVAT Lymph Nodes: no submandibular, cervical, supraclavicular or axillary LN Skin: tanned- no skin rashes Musculoskeletal: no joint swelling or erythema Extremities: no cyanosis, clubbing, some mild edema LLE>RLE Neuro: grossly intact Catheters: R sided port - clean dry and intact without erythema Data Review: Laboratory data reviewed. Pertinent positives include: Labs: WBC/RBC/HGB/HCT/PLT/ANC13.29/2.07/7.4/22.2/163/-- (01/11 533) Microbiology: 11/08 - peritoneum fluid - neg 12/11 - BC X 2 - neg 12/11 - CLINICAL LABORATORY TECHNOLOGIST - SARS, Flu, RSV - neg 12/11 - Ascitic fluid - AFB - neg 12/11 - Ascitic fluid - neg 12/19 - Ascitic fluid - neg 01/07 - CLINICAL LABORATORY TECHNOLOGIST - SARS, Flu, RSV - neg 01/07 - CLINICAL LABORATORY TECHNOLOGIST - expanded respiratory panel - neg 01/08 - Urine Strep pneumo, Legionella Ag - neg 01/09 - crypto Ag - neg 01/10 - BAL - BELKIS - polys no bacteria AFB - neg PCP, Nocardia - pending Other: 01/09 - Fungitell - > 500 01/10 - Differential lavage fluid - 66% monos Radiological Studies: I have independently visualized the Chest CT that shows diffuse ground glass opacities Assessment: 63 yr old woman with a PMH notable for metastatic ER+ breast cancer - 2016 (mets to liver c/b portal HTN, lymphadenopathy, bony mets), UE thrombus and PE on eliquis HSV 2, GERD, on Enhertu since October and Prednisone since November who undergoes repeated paracenteses for ascites that have increased in frequency recently admitted with several months of non productive cough, shortness of breath that have accelerated in the last couple of weeks now with diffuse ground glass opacities on chest CT, and an elevated fungitell. She does not have risk factors for a false positive fungitell. The differential diagnosis for her chest imaging as well as her fungitell include strep pneumoniae though her CT would be a bit unusual and she has not been on therapy for 4 days and I suspect that this would be much worse particularly given her high dose steroids. Histoplasma is a possibility though we do not see this as often in [place] and Blastomyces does not cause elevated beta D glucan levels. Cryptococcus and Zygomycetes also would not be considerations given her elevated fungitell. She does garden and Fusarium would also be consideration but more likely causes nodules, consolidations or cavitary lesions. Aspergillus is also a possibility - but she's not been on therapy and with high dose steroids I suspect she would be worsening. Anaplasma can cause GGO but would not cause elevated fungitell. Of concernwould also be PJP given the length of time she's been symptomatic, the acute worsening, and is not progressively worsening from a respiratory standpoint off antibiotics and on high dose steroids. Recommendations: Urine histo antigen Serum histo antigen ([place] - HIBAG) Serum Aspergillus galactomannan ([place] ASPAG) BC X 2 Anaplasma/Ehrlichia PCR CLINICAL LABORATORY TECHNOLOGIST swab for Mycoplasma pneumonia PCR ([place] MPRP) Would consider Atovaquone PO 750 mg BID pending results from the BAL Discussed with primary care team Errol Ferrell MD 01/12/2024 14:53 * James Ledesma MD - 01/09/2024 1047 EDT Images from the original note were not included. Inpatient Pulmonary Consult Admit Date: 01/08/2024 Date of Service: 01/09/2024 Requesting Physician: Dr. Masha Russell Reason for Consult: repeat bronchoscopy and/or steroid recommendations for pneumonitis HPI: 63 y/o female with history of metastatic ER+ breast cancer (mets to liver c/b portal hypertension with ascites), GERD, and DVT/PE diagnosed diagnosed October (apixaban since) who was admitted to medical oncology service yesterday for shortness of breath and hypoxia. Follows with Dr. Carreon for breast cancer. Diagnosed 2016. Switched from Orserdu to Enhertu (10/18/23) due to issues with constipation. Recently started cycle 4 day 1 of Enhertu (fam-trastuzumab deruxtecn-nxki) on 12/20/23. She has been having shortness of breath since , progressively worsening over the past month. CT chest 10/03/23 showed slight decrease in size of enlarged right internal thoracic lymph node,otherwise no parenchymal changes. On 11/15, started on prednisone 10 mg by oncologist for appetite/energy. Seen by Dr. Leach outpatient on 11/23/23 for chronic cough and shortness of breath. Underwent bronchoscopy on 12/09/23. Mucoid secretions noted in trachea and airways, otherwise no endobronchial lesions or bleeding. No fluid studies at that time. admitted for AMS thought to be medication-induced 2/2 gabapentin, not hepatic encephalopathy. Gabapentin decreased to 200mg TID. 12/19 C4D1 Enhertu. 12/26: diuretics increased to spironolactong 100mg, lasix 20mg daily. 01/02 last paracentesis. 01/04 CT chest with patchy GG opacities concerning for infection vs pneumonitis vs volume loss. Call with pulm: recommended ER, suggested 1mg/kg prednisone but pt has not actually started increase steroids to 1mg/kg but not done yet Summary of cancer therapy: 10/2016- 03/2018 letrozole + palbociclib (poor tolerance, mouth sores) then single agent letrozole until 02/2020 Fulvestrant + abemaciclib until 05/2020 stopped for diarrhea then single agent fulvestrant until 06/2021 then adds palbociclib 11/2021 - 06/2023 capecitabine 3- 09/2023 Orserdu (elecestrant): Her scans were relatively stable disease however LFTs, persistentcough suggest progression. CA 27-29 >800 10/18/23 C#1 T-dxd (Enhertu) Medications Inhalers: none Apixaban Prednisone Lasix 20 mg Spironolactone 100 mg Omeprazole 40 mg Gabapentin Morphine Flexerril Social Smoking: never Alcohol: 1 glass wine/week Illicit substances: denies ever No known hazardous exposures Housing: no known mold Pets: none Family Father had lung cancer. Otherwise, no known rheumatologic or congenital conditions. Allergies Allergies Allergen Reactions Amoxicillin Other (See Comments) and Rash Red rash Sulfa (Sulfonamide Antibiotics) Hives Light lavender rash Sulfamethoxazole-Trimethoprim Rash Review of Systems: A 12 point review of systems was performed and is negative aside from what is mentioned above, within the HPI. Subjective/Objective Objective/Physical Exam: VS: Patient Vitals for the past 8 hrs: BP Resp Temp SpO2 O2 Flow Rate (L/min) O2 Device 01/09/24 0957 129/67 -- -- 99 % 2 l/min Nasal cannula 01/09/24 0910 113/63 -- -- 94 % -- -- 01/09/24 0908 (!) 142/60 16 -- 92 % 2 l/min Nasal cannula 01/09/24 0719 -- -- -- -- 2 l/min Nasal cannula 01/09/24 0606 119/59 -- 36.9 ??C (98.5 ??F) 93 % 2 l/min Nasal cannula Physical Exam: Gen: Alert and cooperative. HEENT: Oropharynx is without erythema or exudate. Lungs: Breath sounds are clear bilaterally without rales, rhonchi or wheezing. Mild crackles. Heart: Regular rate/rhythm, no extra heart sounds appreciated. with no appreciable gallops, rubs, murmurs or extra heart sounds. Extremities: Warm without clubbing, edema or cyanosis. Data Review: Labs: reviewed. Positive JODY (1:640) in 2008. Micro: Negative COVID, flu, RSV, expanded viral 01/08/24. Negative Legionella/Strep 01/09/24. No micro history. Radiology: Most recent echocardiogram: 10/17/23 Left ventricular EF 55-60% No significant valvular pathology CT chest (01/05/24) Diminished lung volumes with evidence of atelectasis and/or scarring bilaterally, patchy ground glass opacity (new compared to most recent study October 2023), large amount of ascites. 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 CT with new grand glass opacities. Differential includes trastuzumab- induced interstitial pneumonitis vs. infection. Bronchoscopy indicated for further diagnostic clarification. Recommendations Serum fungitell and cryptococcal antigen Continue prednisone 50 mg daily Scheduled DuoNeb q6h NPO and hold apixaban for tentative bronchoscopy tomorrow (would be afternoon at earliest) Anticipate discharge on home oxygen Patient seen and plan discussed with Dr. Logan. James Ledesma MD Internal Medicine PGY-3 Associated attestation - Chelsea Logan MD - 01/09/2024 5978 EDT Concern for Enhertu pneumonitis vs Infectious etiology (bacterial/fungal/viral) Has air trapping on CT as well. Will plan for bronch tomorrow (urgent add on so not guaranteed) - NPO after MN and hold anticoagulation Try scheduled nebs given aitrapping on CT Prednisone 50 x 1 month then decrease by 10 mg every 2 weeks Will need f/u with pulmonary in 6 weeks with PFTs and CT chest Attestation: I performed or was present during the knight or critical portions of the visit and participated in the management of the patient on 01/09/24. I agree with the findings and plan of care as documented in the resident's/fellow's note. Chelsea Logan MD 01/09/2024 15:24 documented in this encounter ED Notes * Aneudy Nails RN - 01/08/2024 1700 EDT 12 Lead EKG Performed by ANEUDY NAILS RN and shown to Dr Whyte. * Nathaniel Power RN - 01/08/2024 1557 EDT Pt ambulated at request of family who stated she had a difficult time ambulating. Pt became extremely short of breath, RR ~45, coughing, o2 sat 82% following walk. Primary RN aware. * Nathaniel Power RN - 01/08/2024 1539 EDT Chief Complaint Patient presents with Shortness of Breath Pt arrives with complaint of worsening exertional shortness of breath for 1 month. Has been seen multiple times for similar. Has hx breast cancer with mets, including lungs. Currently on chemo therapy, last chemo 12/20/2023. * Trinh Alcocer PA-C - 01/08/2024 1528 EDT Images from the original note were not included. [facility] Emergency Department Note Emergency Department Visit Medical Decision Making This is a 63 y.o. female with PMHx of metastatic breast CA, UE DVT and PE on eliquis who is presenting to the Emergency Department with shortness of breath. Vital signs tachycardic to 117 otherwise stable. Physical examination as below noteable for clear lungs, abd is distended. Differential diagnosis includes: Pneumonitis in the setting of her chemotherapy, pneumonia, viral syndrome, pneumothorax although she has bilateral breath sounds, metabolic derangement, dehydration. Will obtain labs including: CBC, BMP, COVID and flu swabs, chest x- ray. Will provide IV access, observe and reassess. She will require hospitalization given her desaturation and new oxygen requirement. Patient seen and evaluated with Dr. Sebastian who agrees with the workup and the plan Medical Decision Making Problems Addressed: Anemia, unspecified type: complicated acute illness or injury Shortness of breath: complicated acute illness or injury Amount and/or Complexity of Data Reviewed Labs: Decision-making details documented in ED Course. Radiology: ordered. Decision-making details documented in ED Course. ECG/medicine tests: Decision-making details documented in ED Course. Risk Prescription drug management. Decision regarding hospitalization. Imaging XR CHEST PORTABLE 1 VIEW Final Result Interposed areas of atelectasis and airspace disease similar as on the comparison CT 3 days prior concerning for bilateral pneumonia. Differential consideration would include drug reaction. [id number] ED Course Relevant Data as of 01/08/24 1837 Sun Jan 08, 2024 170 EKG 12 lead The EKG was independently reviewed and interpreted by me. Sinus tachycardia 108 bpm. [DW] 1717 I, Micky Sebastian MD, reviewed this case with the Advanced Practice Provider. I personally made/approved the management plan for this patient and take responsibility for that plan, with its inherent risk of complications and/or morbidity or mortality of patient management. I evaluated this patient [id number] and provided a substantive portion of the patient's care. My personal evaluation included a history and physical exam, review of nursing notes, vital signs, relevant records and diagnostic data. Based on all of these elements I formulated, and/or participated substantively in the medical decision making, including assessing the level of risk of the patient's complaints and condition, establishing a diagnosis and/or selecting management options. [DW] 1734 Sodium(!): 128 [AC] 1734 Total Alkaline Phosphatase(!): 368 [AC] 1734 ALT(!): 39 [AC] 1734 Anion Gap(!): 3 [AC] 1734 XR CHEST PORTABLE 1 VIEW [AC] 1823 WBC: 7.78 [AC] 1823 Hemoglobin(!): 7.9 [AC] 1826 Flu A RNA Result: Negative [AC] 1826 Flu B RNA Result: Negative [AC] 1826 RSV RNA Result: Negative [AC] 1826 COVID-19 rt-PCR Result: Negative Paged admitting hospitalist. [AC] 1833 Spoke with the hospitalist who agrees with plan for admission. [AC] Relevant Data User Index [AC] Trinh Alcocer, GRISEL [DW] Micky Sebastian MD The following problems were addressed: Final diagnoses: Shortness of breath Anemia, unspecified type Chief complaint: Shortness of breath HPI Sunshine Subramanian is a 63 y.o. female who presents to the Emergency Department for shortness of breath. Patient reports that for the last month has had worsening, declining shortness of breath. Has had an O2 sat at home in the low 80s and even 75% after minimal exertion. She met with her oncologist 2 days ago, who recommended that she come to the emergency department, start steroids, pulmonary workup, consider bronchoscopy and admission. She states her cough is mostly dry but sometimes productive. No hemoptysis. No leg swelling. She is been compliant with her Eliquis. She does report worsening abdominal distention. Last had paracentesis on January 02 where they took over 3 L of fluid off.She does report some improvement in bowel movements after the paracentesis. No urinary symptoms. Nofevers or chills. Her oncologist felt that she has possible pneumonitis in the setting of her chemowhich is being held. Last chemotherapy was on December 19 History was provided by: Patient, patient's Patient's pertinent PMH, FH, SH were reviewed and edited as necessary. Reviewed oncology note from Dr. Carreon on 01/06/[address] - diminished lung volumes, patchy areas of GGO within the lungs have developed since prior exam. Reviewed pulmonology note from Dr. Leach from November 23, 2023 Physical Exam Patient Vitals for the past 24 hrs: BP Temp Pulse Resp SpO2 Height Weight 01/08/24 1700 -- -- -- -- 100 % -- -- 01/08/24 1600 -- -- -- -- 99 % -- -- 01/08/24 1555 -- -- -- -- 100 % -- -- 01/08/24 1550 -- -- -- -- (!) 82 % -- -- 01/08/24 1539 118/51 37.3 ??C (99.1 ??F) (!) 117 24 97 % 154.9 cm (61) 54.4 kg (120 lb) A medical screening exam was performed. Physical Exam General: Awake, frail appearing, in no acute distress. After ambulating from the restroom into the stretcher, 83% on room air. Tachypneic HEENT: Normocephalic, atruamatic. EOMI. Nares patent. Neck: Supple, full ROM. Pulmonary: Lungs clear to auscultation bilaterally. No wheezes, rales, or rhonchi. Chest wall non-tender to palpation. Cardiovascular: Regular rhythm and rate. No murmur, rub, or gallop. GI: Abdomen softly distended MSK: Normal ROM of upper and lower extremities. No lower extremity edema. No deformities. Neuro: Sensation to light touch intact. 5/5 motor strength throughout. Psych: Normal mood and affect. Disposition: Admitted to oncology documented in this encounter Miscellaneous Notes * Plan of Care - Tawana Berry RN - 01/19/2024 2578 EDT Nursing Discharge Note D: Patient noted with discharge orders to: home. A: Prescriptions faxed to pharmacy. Reviewed discharge instructions and prescriptions with Patient with previous RN Belongings collected and sent home with patient. R: Patient verbalized understanding of discharge instructions and denied further questions. Left via wheelchair with with home oxygen tanks. TAWANA BERRY RN 01/19/2024 15:59 * Plan of Care - Aruna Law RN - 01/18/2024 8809 EDT Problem: Daily Care Plan Goals Goal: Care Plan Documentation Flowsheets (Taken 01/18/2024 0700) Area of Focus: Circulatory Status Goal This Shift: VSS this shift Data: assumed care of pt a 0700. Pt aox3, independent in room. Pt reporting pain as tolerable this morning. This evening pt having increased muscle cramps. 2+ pitting edema in R foot, pt expressing concern (provider aware). Pt emotional at times today, coming to terms with new normal. Action: meds administered per aug. Paracentesis done by provider at bedside. Hourly checks for safety. Emotional support provided. Response: pt resting in bed at this time. Reporting feeling tired from the day. Pt with call pak in reach, will call if needs arise. ARUNA LAW RN 01/18/2024 18:30 * Plan of Care - Criselda Cisneros RN - 01/17/2024 193 EDT Problem: Daily Care Plan Goals Goal: Care Plan Documentation Outcome: Met This Shift Flowsheets (Taken 01/17/2024 0700) Area of Focus: Respiratory Goal This Shift: Pt O2 needs will decrease this shift Assumed care @ 0700. Pt remains bubbly, pleasant, and positive. Pt was able to be weaned down to RAthis shift, but still needs 2-4 L NC when ambulating. Stretchy, foam tape is still working to keep para site from leaking but of course this means that her belly blew up in size this shift and is becoming uncomfortable. Pt met with spiritual care and palliative today. Pt took a shower, cleaned up her room, and is ready for discharge tomorrow. Plan is to have home O2 eval done and paracentesis before discharge. Pt remained axox3 and free from falls. Pt safety maintained. * Plan of Care - Sandra Rodriguez RN - 01/17/2024 0543 EDT Data: Assumed care of pt at 1900. A/O x3, on 2L O2 overnight, independent OOB. Pt here for PJPneumonia. Afebrile throughout shift. Action: Medications administered per AUG. X1 dose of dilaudid given for pain d/t cramps. Clustered care to promote rest. Hourly checks complete. Response: Pt reports improved pain level after administration of dilaudid. No additional needs expressed at this time. Call pak within reach. SANDRA RODRIGUEZ RN 01/17/2024 5:43 * Plan of Care - Criselda Cisneros RN - 01/16/20242011 EDT Problem: Daily Care Plan Goals Goal: Care Plan Documentation Outcome: Met This Shift Flowsheets (Taken 01/16/2024 0700) Goal This Shift: Pt will remain afebrile Assumed care @ 0700. Auscultated a murmur and bilat crackles, MD notified and aware. Pt remained atthe 2L NC this shift and with movement, needed 4-5L NC. MD notified and pt tested for resp/covid. Results came back neg. Pt was a little light headed this morning so we made her a contact guard but she was back to baseline ambulation the second half of day. Para site was leaking through an abd pad every couple hours, MD notified. Stretchy foam tape obtained from different unit and MD placed over site. Pt remained axox3 and free from falls. Pt remained afebrile this shift. Pt safety maintained. * Plan of Care - Sandra Rodriguez RN - 01/16/2024 0749 EDT Data: Assumed care of pt at 1900. A/O x3, on 2L O2 via NC, independent OOB. Pt here for PJP pneumonia. Pt on RA throughout night, noted to have increasing O2 requirement around 0500. Pt noted to havetemp of 38.5 @ around 0515 - MD notified and w/u ordered. Action: Medications administered per AUG. Central line blood cultures drawn, urine culture sent, switched to phleb draw for peripheral cultures, CXR complete. Clustered care to promote rest. Hourly checks complete. Response: Plan to await w/u results and start cefepime. No additional needs expressed at this time.Call pak within reach. SANDRA RODRIGUEZ RN 01/16/2024 7:49 * Plan of Care - Sandra Rodriguez RN - 01/15/2024 0637 EDT Data: Assumed care of pt at 1900. A/O x3, on 2L O2 via NC, independent OOB. No pain or nausea reported. Action: Medications administered per AUG. Monitored O2 needs throughout night. Clustered care to promote rest. Hourly checks complete. Response: Pt able to remain stable on 2L O2 throughout night. Remains without pain or nausea. No additional needs expressed at this time. Call pak within reach. SANDRA RODRIGUEZ RN 01/15/2024 6:37 * Plan of Care - Amy Pereira RN - 01/14/2024 1442 EDT No acute changes this shift. Patient is having a nice Tuesday, visiting with friends and awaiting 's arrival. Fluid intake is great and she has enjoyed tomato soup for bfast and penne for lunch. O2 sats within appropriate range 3-6L@ depending on rest or activity. Denies Pain but endorses calf and leg cramping for which flexeril was provided. [facility] AMY PEREIRA RN * Plan of Care - Osiel Gurrola RN - 01/14/2024 0316 EDT Data: pt admitted with acute hypoxic respiratory failure. Hx of breast cancer with mets to liver. Alert and oriented x3. Vital signs stable on 3L O2 at rest and 6L with activity. Endorses muscle cramping in legs. Action: scheduled and PRN meds given per AUG. PRN flexeril given for muscle cramping. IVAD clotted-IV team consulted and administered alteplase with no success. Thrush in mouth noted-pictures uploaded to chart, nystatin mouth wash given as ordered. Response: Port now flushing with brisk blood return after deaccessing/accessing. Continues to desatinto the low 80s with activity but recovers quickly when at rest. BP 136/71 Pulse (!) 115 Temp 36.7 ??C (98 ??F) (Oral) Resp 16 Ht 154.9 cm (61) Wt 54.4 kg (120 lb) SpO2 99% BMI 22.67 kg/m?? OSIEL KASPER RN 01/14/2024 3:16 * Plan of Care - Marc Jarquin RN - 01/13/2024 1418 EDT Data: Aox3, Independent in room. Home o2 eval complete. Recommending 3L at rest and 6L with exertion. Pt eating full meals and reports feeling positive. VSS, HR elevated to 115 at rest. MD aware. Action: Medicated per eMAR and with Flexeril. Response: Pt resting in bed with call pak within reach. MARC JARQUIN RN 01/13/2024 14:19 * Plan of Care - Jessica Liu RN - 01/13/2024 0307 EDT Data: 63y/o female admitted 01/07 for SOB, anemia, Ac hypoxic resp failure. 01/10 pt had a bronch with brochial alveolar washout, 01/11 paracentesis with 1 liter removed. Pt AAOX4, up ad yair. Pt needs RT to eval pt for home O2 Action: meds given per AUG, UA sent, pain managed per PRN AUG Response: pt rested throughout the night, pt denies complaint or need at this time, call light in reach JESSICA LIU RN 01/13/2024 6:38 Problem: SAFETY Goal: Free From Accidental Physical Injury Outcome: Ongoing Problem: Daily Care Plan Goals Goal: Care Plan Documentation Outcome: Ongoing Flowsheets Taken 01/13/2024 0307 Area of Focus: Pain/ Comfort Taken 01/13/2024 0100 Goal This Shift: pain mngmt * Plan of Care - Paty Ireland RN - 01/12/2024 1639 EDT Problem: Daily Care Plan Goals Goal: Care Plan Documentation Outcome: Ongoing Flowsheets (Taken 01/12/2024 0720) Area of Focus: Respiratory Goal This Shift: O2 sat>92% Data: Patient admitted with acute hypoxic respiratory failure. Hx of breast cancer with mets to theliver. Action: Patient requires O2 supplied via NC at 3 lpm continuously. Tomorrow will have RT evaluationfor need of oxygen at home. Response: Patient had a paracentesis at bedside this afternoon, tolerated well. PATY IRELAND RN 01/12/2024 17:23 * Plan of Care - Bambi Blum RN - 01/11/2024 1710 EDT Images from the original note were not included. Data: Pt was admitted on 01/07 with a chief complaint of Acute on subacute dyspnea and now with a principal diagnosis of metastatic breast cancer with resultant portal hypertension from liver metastases. Pt is AOX3, VSS on 2L via NC. Lung sounds dim with some crackles. Strong non productive cough, pt reports HAN. ABD hard and mildly distended. Continent of bowel and bladder. NPO for bronch today. Independent in room. Action: Administered meds per AUG. Q4 Vs and hourly rounding for patient safety. Encouraged IS use.Clustered care to promote rest. Pt went for bronch this shift. Response: Pt resting comfortably. Will continue to monitor and intervene as needed. BAMBI BLUM RN 01/11/2024 17:11 * Plan of Care - Myron Vences RN - 01/11/2024 0709 EDT Problem: Daily Care Plan Goals Goal: Care Plan Documentation Flowsheets (Taken 01/10/2024 2300) Area of Focus: Respiratory Goal This Shift: SpO2 >92%. Data: Assumed care of pt at 1900. Pt admitted with CC of dyspnea found to potentially have Enherta-mediated pneumonitis (negative infectious work-up thus far). PMH of metastatic breast cancer with mets to liver and bone as well as RUE DVT and PE (on Eliquis). Pt A+O x 3, on 2L NC (4L when ambulating), no tele, and independent. No complaints of pain or nausea. Pt with distended belly from ascites.Last paracentesis 12/30 with 2.2L fluid removed. NPO at 0000 for bronchoscopy 01/10. Eliquis held for procedure. Goal of shift is for pts SpO2 >92%. Action: Scheduled meds administered including PRN flexeril and x1 dose of IV dilaudid for pain r/t muscle spasms. Dilaudid now ordered Q4 PRN if needed. Respiratory performing scheduled duonebs. Pt declined 0000 douneb. Care clustered to promote rest. Call light and personal items in close reach. Hourly checks and Q4 VS performed to monitor pt and needs. Response: SpO2 >92% with above interventions. MYRON VENCES RN 01/11/2024 7:30 * Plan of Care - Tiara [place] - 01/10/2024 1424 EDT Initial Case Management/Social Work Assessment and Discharge Plan/Readmission Risk Assessment REASON FOR ADMISSION: Shortness of breath Patient understands reason for admission: (P) Yes PATIENT INFO VERIFIED: (P) PCP, Contact Info, Address Type of housing (single family, condo, apartment, prison, single room occupancy, [facility] funded hotel room, group long term) - [facility] Who does the patient live with? spouse Does the patient have access to their own bedroom/bathroom/kitchen - or is it shared with others? own Name of housing complex (ex [place], [facility], etc)- Housing Authority/Managing Organization - Community Care Providers (medical case worker, [facility] nurse, etc) name and contact information- LIVING ARRANGEMENTS AND ACCESSIBILITY ISSUES: Living Arrangements: (P) Private residence, Spouse / significant other Levels: (P) 1 Stairs to enter: (P) 2 Handicap access: (P) None Bathroom located on bedroom level?: (P) Yes What in home social supports are available to the patient? (P) Spouse / significant other Is 03/01 care available? (P) Yes ADVANCED DIRECTIVES, POA &/or COLST IN PLACE: Healthcare Directive: No, patient does not have advance directive for healthcare treatment Information Provided on Healthcare Directives: (sent) Information on Healthcare Directives Requested: Yes Patient Requests Assistance: No DIRECTIVES FOR FINANCES: TRANSPORTATION: Does the patient need discharge transport arranged?: (P) No Expected Discharge on IV Antibiotics: (P) No CULTURAL, MU-ISM and/or LANGUAGE factors affecting health care/discharge planning: Spiritual/Cultural Requests: None Insurance Information:medicare Nutrition: DISCHARGE RISK ASSESSMENT: (P) Requires assistance with ADLs/IADLs Total # selected above: Tentative plan to address the risk of re-hospitalization for those at HIGH MODERATE RISK: RAPT TOOL: Age: (P) 50-65 Gender: (P) Female Gait device: (P) None Community Services: (P) Home health, MOW, SASH-none of one time a week Will you live with someone who will care for you?: (P) Yes RAPT Tool Score: (P) 9 Expected Discharge Disposition: (P) Home or Self Care SBIRT: FUNCTIONAL STATUS: Activities patient requires assistance: (P) Age appropriate Assistive Devices: (P) Oxygen COMMUNITY RESOURCES/SUPPORTS: Primary Care Provider: Linda Blancas PCP Verified: Specialists: (P) Oncology Type of Home Health Services: (P) None DME Provider: Pharmacy: [facility] #[id number] - [place], [place] - [address] [facility] [address] [facility] [id number] [place], [place] - [address] [facility] [address] [facility] ([facility]) - [place], [place] - [address] [facility] [address] [facility]/pharmacy #[id number] - [place], [place] - [address] 160 [facility] [address] [facility] TANK Spears - [facility] AT Portal to Registered Caretynan Sites [facility] [place] [address] [facility] ([facility]) - [place], [place] - [address] [facility] [address] [employer] [id number] - [place], [place] - [address] [place] [address] [address] [facility] [address] [facility] - [place] - [address], [address] [address] [address], [address] 200 [facility] [address] Home Health: NA Other: POST HOSPITAL TRANSITION PLAN: CM met with pt and spouse. {T loves gardening and being in the sun. She is grieving that she will need to be using oxygen. She does not have a preference for a vendor. She is aware she will likely discharge at the end of the week. She does not require HH services. Sheis independent for her ADLs and requires some assistance with IADLs. CM will set her up with home oxygen. ABEL Mims HemOc Assessment Clinician [phone] or avail by [employer] darryl [place] 01/10/2024 14:25 * Plan of Care - Bambi Blum RN - 01/10/2024 1108 EDT Data: Pt was admitted on 01/07 with a chief complaint of Acute on subacute dyspnea and now with a principal diagnosis of metastatic breast cancer with resultant portal hypertension from liver metastases. Pt is AOX3, VSS on 2L via NC. Lung sounds dim with some crackles. Strong non productive cough, pt reports HAN. ABD hard and mildly distended. Continent of bowel and bladder. NPO for bronch today. Independent in room. Action: Administered meds per AUG. Q4 Vs and hourly rounding for patient safety. Encouraged IS use.Clustered care to promote rest. Response: Pt resting comfortably. Will continue to monitor and intervene as needed. BAMBI BLUM RN 01/10/2024 11:08 * Plan of Care - Myron Vences RN - 01/10/2024 0136 EDT Problem: Daily Care Plan Goals Goal: Care Plan Documentation Flowsheets (Taken 01/09/2024 2300) Area of Focus: Respiratory Goal This Shift: SpO2 >92%. Data: Assumed care of pt at 1900. Pt admitted with CC of dyspnea found to potentially have Enherta-mediated pneumonitis (negative infectious work-up thus far). PMH of metastatic breast cancer with mets to liver and bone as well as RUE DVT and PE (on Eliquis). Pt A+O x 3, on 2L NC (4L when ambulating), no tele, and independent. No complaints of pain or nausea. Pt with distended belly from ascites.Last paracentesis 12/30 with 2.2L fluid removed. NPO at 0000 for bronchoscopy 01/09. Eliquis held for procedure. Goal of shift is for pts SpO2 >92%. Action: Scheduled meds administered including PRN flexeril for muscle spasms. Respiratory performing scheduled duonebs. Care clustered to promote rest. Call light and personal items in close reach. Hourly checks and Q4 VS performed to monitor pt and needs. Response: SpO2 >92% with above interventions. MYRON VENCES RN 01/10/2024 06:45 * Plan of Care - Esha Lee RN - 01/09/20241999 EDT Problem: Daily Care Plan Goals Goal: Care Plan Documentation Area of Focus: Respiratory Goal This Shift: pt will maintain 02 Sats >92% with interventions Data: Pt aaox3 on 2L NC requiring upto 4L NC with mobility. Mood pleasant. Eating 50% of dinner independently. No reports of Pain, no complaints of respiratory distress. Report called to [address] Action: Pt declining full body assessment prior to transport. Vitals obtained prior, wnl. Pt on 2L NC 02 sats> 92%. Repositioning encouraged. Items packed for transport. Response: Pt accepting of care. Items packed for transport. 02 tank obtained obtained and set. Pt transported to [place] [address] via patient support, RR even and unlabored at time of transport from [facility] at 1999. ESHA LEE RN 01/09/2024 20:08 * Plan of Care - Esha Lee RN - 01/09/2024 1826 EDT Problem: Daily Care Plan Goals Goal: Care Plan Documentation Flowsheets (Taken 01/09/2024 1710) Area of Focus: Respiratory Goal This Shift: pt will maintain 02 Sats >92% with interventions Data: Assumed care for pt at 1500. Pt off unit at the start of shift for Echo. Vitals wnl. Pt denies pain, chest pain. Some dizziness and sob reported with far distances. Pt on 2 L NC requiring 4 L when up to the BR/ mobility. Voiding appropriately. No acute changes. Pt to be transferred to [place] [address]. Action: Assessed pt, and monitored respiratory status, and I/O's. Care clustered for comfort, repositioning encouraged. RT to bedside administering neb treatment. Call pak at bedside. Hourly safety checks provided. Response: Pt accepting of care. No acute changes. RR even and unlabored at rest. ESHA LEE RN 01/09/2024 18:26 * Plan of Care - Danita Monroe RN - 01/09/2024 1005 EDT Problem: Daily Care Plan Goals Goal: Care Plan Documentation Outcome: Met This Shift Flowsheets (Taken 01/09/2024 0719) Area of Focus: Respiratory Goal This Shift: pt will remain above 92% and remain free of resp distress Data: Assumed care at 07. Pt is very pleasant, A&Ox3. On 2L nasal cannula for ongoing hypoxia, up to 4L needed with exertion. Strong, dry cough. Minimal complaints of pain, 2/10 generalized discomfort. Abd distended, firm. NPO for potential bronch today. Action: Rounded hourly. Went for paracentesis in IR at 0800, 2200mL removed. Pt independent with transfers. Reg diet ordered, bronch rescheduled for tomorrow 01/09. Response: Pt to go for echo at 1500. On 2L, spO2 greater than 92%. Rings appropriately. DANITA MONROE RN 01/09/2024 10:05 * Hospital Course - Kaylah Najera MD - 01/09/2024 0746 EDT HD1: * Plan of Care - Mariaa Funes RN - 01/09/2024 0403 EDT Problem: SAFETY Goal: Free From Accidental Physical Injury Outcome: Ongoing Problem: High Fall Risk: Goal: Patient will Remain Free of Falls due to Dizziness/Vertigo Outcome: Ongoing Data: ED admit, came in for SOB, aox3. HX of metastatic breast cancer, HTN, PE on eliquis. Desats while ambulating to BR. Continent of bowel & bladder, 2L NC in place, PRN robitussin given with good effect. Pending urine and sputum culture. Safety and droplet precaution maintained. Action: Hourly rounding done. Meds given as prescribed. Currently NPO for possible bronch. Response: Pt remain free from fall and injuries throughout the shift, able to call and make needs known. Will continue to monitor. MARIAA FUNES RN 01/09/2024 4:08 documented in this encounter Plan of Treatment Upcoming Encounters Date Type Department Care Team (Late st Contact Info) Description 04/02/2024 10:30 EDT Appointment [facility] Interventional Radiology Unit [address] [place] [address] [id number] 04/02/2024 15:15 EDT Office Visit [facility] Surgical Oncology - [facility] [address] [place], [place] [phone] Adolfo Carreno MD [address] [facility] Level 2 [place] [phone] 04/05/2024 9:30 EDT Telemedicine [facility] - [facility] Palliative Care Services [address] [place], [place] [phone] Chichi Woods MD [address] [place] [address], [place] [address] [place] [phone] 04/11/2024 15:00 EDT Telemedicine [facility] Hematology & Oncology - [address] [phone] Alisson Carreon MD [address] [place] [address], [facility] 2 [place] [phone] 04/13/2024 13:30 EDT Appointment [facility] Hematology & Oncology - [address] [phone] 04/13/2024 14:00 EDT Appointment [facility] Hematology & Oncology [address] [id number] 04/16/2024 10:00 EST Telemedicine [facility] - [facility] Palliative Care Services [address] [place] [id number] Chichi Woods MD [address] [place] [phone] 04/24/2024 9:00 EST Appointment [facility] Radiology CT Outpatient - [address] [phone] 04/24/2024 11:00 EST Appointment [facility] Breast Imaging - [facility] [address] [phone] 04/27/2024 12:00 EST Appointment [facility] Hematology & Oncology - [address] [phone] 05/02/2024 15:00 EST Telemedicine [facility] Hematology & Oncology [address] [phone] Alisson Carreon MD [address] [place] [address], [facility] 2 [place] [phone] 05/04/2024 10:15 EST Ancillary Procedure [facility] Cardiology - [place] [address] [place] [address] 05/04/2024 11:30 EST Appointment [facility] Hematology & Oncology [address] [address] 05/04/2024 12:00 EST Appointment [facility] Hematology & Oncology [address] [phone] 06/12/2024 13:00 EST Appointment [facility] Radiology CT [address] [phone] Scheduled Referrals Name Type Priority Associated Diagnoses Order Schedule AMB CONS/FOLLOW UP PALLIATIVE CARE SERVICES Outpatient Referral Routine/Next Available Malignant neoplasm of female breast, unspecified estrogen receptor status, unspecified laterality, unspecified site of breast ([facility]) [C50.919] Primary malignant neoplasm of breast with metastasis ([facility]) Encounter for palliative care Expected: 02/12/2024 (Approximate), Expires: 01/11/2025 AMB CONS/FOLLOW UP PULMONARY Outpatient Referral Routine/Next Available 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, unspecified laterality, 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[facility]) Expected: 02/09/2024 (Approximate), Expires: 01/18/2025 AMB CONS/FOLLOW UP HEPATOLOGY Outpatient Referral Routine/Next Available Other ascites Expected: 01/26/2024 (Approximate), Expires: 01/18/2025 AMB CONS/FOLLOW UP ADULT INFECTIOUS DISEASE Outpatient Referral Routine/Next Available 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, unspecified laterality, 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[facility]CC-CMS) Expected: 01/26/2024 (Approximate), Expires: 01/18/2025 AMB CONS/FOLLOW UP BREAST CARE CENTER Outpatient Referral Routine/Next Available Malignant neoplasm of female breast, unspecified estrogen receptor status, unspecified laterality, unspecified site of breast ([facility]) [C50.919] Metastatic malignant neoplasm, unspecified site ([facility]CC-CMS) [C79.9] Expected: 02/03/2024 (Approximate), Expires: 01/18/2025 AMB CONS/FOLLOW UP PRIMARY CARE PHYSICIAN - EXTERNAL Outpatient Referral Routine/Next Available Malignant neoplasm of female breast, unspecified estrogen receptor status, unspecified laterality, unspecified site of breast ([facility]) [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, unspecified laterality, 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[facility]) Expected: 01/26/2024 (Approximate), Expires: 01/18/2025 AMB CONS/FOLLOW UP PALLIATIVE CARE SERVICES Outpatient Referral Routine/Next Available Malignant neoplasm of female breast, unspecified estrogen receptor status, unspecified laterality, unspecified site of breast ([facility]) [C50.919] Expected: 02/19/2024 (Approximate), Expires: 01/18/2025 documented as of this encounter Procedures Procedure Name Priority Date/Time Associated Diagnosis Comments CA 27.29 Routine 01/19/2024 6:08 EDT COMPLETE BLOOD COUNT Routine 01/19/2024 6:08 EDT BASIC METABOLIC PANEL (BMP) Routine 01/19/2024 6:08 EDT FLUID CELL COUNT Routine 01/18/2024 14:2 0 EDT FLUID DIFFERENTIAL Today 01/18/2024 14 :20 EDT US LOWER VENOUS DUPLEX (DVT) RIGHT [...] METABOLIC PANEL (BMP) Routine 01/15/2024 5:29 EDT COMPLETE BLOOD COUNT Routine 01/14/2024 5:31 EDT PHOSPHORUS Routine 01/14/2024 5:31 EDT MAGNESIUM Routine 01/14/2024 5:31 EDT BASIC METABOLIC PANEL (BMP) Routine 01/14/2024 5:31 EDT HISTOPLASMA AND BLASTOMYCES AG, EIA, URINE Routine 01/13/2024 1:15 EDT BACTERIAL CULTURE, BLOOD Routine 01/12/2024 20:17 EDT DIFFERENTIAL, AUTOMATED MANUAL Today 01/12/2024 19:44 EDT ANAPLASMA AND BABESIA TESTING BY PCR Routine 01/12/2024 19:44 EDT BACTERIAL CULTURE, BLOOD Routine 01/12/2024 19:44 EDT MISCELLANEOUS TEST, FRESNO Today 01/12/2024 19:44 EDT MISCELLANEOUS TEST, FRESNO Routine 01/12/2024 19:44 EDT MISCELLANEOUS TEST, FRESNO Routine 01/12/2024 19:44 EDT COMPLETE BLOOD COUNT Routine 01/12/2024 19:44 EDT PHOSPHORUS Routine 01/12/2024 19:44 EDT MAGNESIUM Routine 01/12/2024 19:44 EDT BASIC METABOLIC PANEL (BMP) Routine 01/12/2024 19:44 EDT PARACENTESIS BEDSIDE Routine 01/12/2024 13:39 EDT Malignant ascites PARACENTESIS BEDSIDE Routine 01/12/2024 13:39 EDT Malignant ascites GLUCOSE 6-PHOSPHATE DEHYDROGENASE ENZYME ACTIVITY,BLD Routine 01/12/2024 12:45 EDT EVAL FOR HOME OXYGEN USE Routine 01/12/2024 5:50 EDT CALCIUM, IONIZED Routine 01/12/2024 5:33 EDT COMPLETE BLOOD COUNT Routine 01/12/2024 5:33 EDT PHOSPHORUS Routine 01/12/2024 5:33 EDT MAGNESIUM Routine 01/12/2024 5:33 EDT BASIC METABOLIC PANEL (BMP) Routine 01/12/2024 5:33 EDT ADULT BRONCHOSCOPY PROCEDURE Routine 01/11/2024 16:53 EDT NON MEAT GRADER/FNA CYTOLOGY Routine 01/11/2024 16:50 EDT PNEUMOCYSTIS JIROVECI, MOLECULAR DETECTION, PCR Routine 01/11/2024 16:50 EDT NOCARDIA CULTURE AND SMEAR Routine 01/11/2024 16:50 EDT AFB CULTURE/SMEAR, OTHER Routine 01/11/2024 16:50 EDT DIFFERENTIAL, LAVAGE FLUID Routine 01/11/2024 16:50 EDT BACTERIAL CULTURE/SMEAR, RESPIRATORY Routine 01/11/2024 16:50 EDT FUNGUS CULTURE/SMEAR Routine 01/11/2024 16:50 EDT BRONCHOSCOPY 01/11/2024 15:[address] of the chest Special Needs IV Sedation MAGNESIUM Routine 01/11/2024 8:00 EDT FOLATE Add-On 01/11/2024 8:00 EDT VITAMIN B12 Add-On 01/11/2024 8:00 EDT HEPATIC FUNCTION PANEL (ALB,ALK PHOS,ALT,AST,DBIL,TO T WILY,TOT PROT) Add-On 01/11/2024 8:00 EDT BASIC METABOLIC PANEL (BMP) Routine 01/11/2024 8:00 EDT COMPLETE BLOOD COUNT Routine 01/11/2024 6:14 EDT MAGNESIUM Routine 01/10/2024 17:08 EDT BASIC METABOLIC PANEL (BMP) Routine 01/10/2024 17:08 EDT TRANSFERRIN SATURATION Routine 01/10/2024 8:44 EDT PROFILE IRON STUDIES (INCLUDES IRON, IBC, AND FERRITIN) Routine 01/10/2024 8:44 EDT MAGNESIUM Routine 01/10/2024 8:44 EDT FERRITIN Routine 01/10/2024 8:44 EDT BASIC METABOLIC PANEL (BMP) Routine 01/10/2024 8:44 EDT FUNGITELL, SERUM Routine 01/10/2024 6:41 EDT CRYPTOCOCCAL ANTIGEN, SERUM Routine 01/10/2024 6:41 EDT COMPLETE BLOOD COUNT Routine 01/10/2024 6:41 EDT TRANSTHORACIC ECHO (TTE) COMPLETE Routine 01/09/2024 16:18 EDT Acute hypoxic respiratory failure (HCC-CMS) ECG REPORT - SCANNED 01/09/2024 13:06 EDT IR PARACENTESIS-RADIOLO GY Routine 01/09/2024 9:59 EDT Other ascites FLUID CELL COUNT Routine 01/09/2024 9:42 EDT Other ascites FLUID DIFFERENTIAL Today 01/09/2024 9: 42 EDT Other ascites FLUID CELL COUNT Routine 01/09/2024 9:42 EDT Other ascites STREPTOCOCCUS PNEUMONIAE ANTIGEN, URINE Routine 01/09/2024 6:20 EDT LEGIONELLA ANTIGEN DETECTION, URINE Routine 01/09/2024 6:20 EDT HN LAB CBC SMEAR REVIEW Today 01/09/2024 6:08 EDT COMPLETE BLOOD COUNT Routine 01/09/2024 6:08 EDT SARS COV2, FLU A/B, RSV DETECT BY PCR STAT 01/08/2024 17:10 EDT EXPANDED RESPIRATORY VIRAL PANEL, PCR (DOES NOT INCLUDE INFLUENZA OR RSV) Add-On 01/08/2024 17:10 EDT COMPLETE BLOOD COUNT AND DIFFERENTIAL STAT 01/08/2024 17:10 EDT COMPREHENSIVE METABOLIC PANEL (CMP) STAT 01/08/2024 17:10 EDT XR CHEST PORTABLE 1 VIEW STAT 01/08/2024 16:57 EDT EKG 12-LEAD STAT 01/08/2024 16:54 EDT documented in this encounter Results * IR PARACENTESIS-RADIOLOGY (01/25/2024 12:00 EDT) Anatomical Region Laterality Modality N/A X-Ray Angiograph y 01/25/2024 15:3 8 EDT Impressions 01/25/2024 15:38 EDT Successful removal of 1.5 liters of ascitic fluid from the abdomen. [id number] Narrative 01/25/2024 15:38 EDT Ultrasound-guided paracentesis; 01/25/2024 [...] anesthesia, and real-time ultrasound guidance, a 5 Paraguayan sheath needle was advanced into the pocket [...] this procedure was 0. Resulting Agency Comment [id number] Procedure Note Mustapha Nguyen MD - 01/25/2024 [...] lidocaine anesthesia, and real-timeultrasound guidance, a 5 Paraguayan sheath needle was advanced into the pocketof [...] liters of ascitic fluid from the abdomen. [id number] Jackie Juan MD IMG IR ORDERABLES * (ABNORMAL) COMPLETE BLOOD COUNT (01/19/2024 6:08 EDT) WBC 11.96 4.00 - 12.40 K/cmm 01/19/2024 6:22 [facility] RBC 2.25(L) 3.86 - 5.04 M/cmm 01/19/2024 6:22 [facility] Hemoglobin 8.3(L) 11.6 - 15.2 g/dL 01/19/2024 6:22 [facility] HCT 25.8(L) 34.9 - 44.4 % 01/19/2024 6:22 [facility] MCV 115(H) 81 - 98 fL 01/19/2024 6:22 [facility] MCH 36.9(H) 26.7 - 33.3 pg 01/19/2024 6:22 EDT [facility] MCHC 32.2 32.1 - 35.9 g/dL 01/19/2024 6:22 [facility] RDW-CV 24.4(H) <14.7 % 01/19/2024 6:22 [facility] RDW-SD 101.2(H) <50.4 fl 01/19/2024 6:22 [facility] PLT 127(L) 141 - 377 K/cmm 01/19/2024 6:22 [facility] MPV 10.5 9.5 - 12.7 fL 01/19/2024 6:22 [facility] Blood VENOUS BLOOD / Unknown Venipuncture / Unknown 01/19/2024 6:08 EDT 01/19/2024 6:12 EDT Masha Russell MD HEMATOLOGY & PF4 ORD ERABLES [facility] [address] [place] [address] * (ABNORMAL) BASIC METABOLIC PANEL (BMP) (01/19/2024 6:08 EDT) Sodium 134(L) 136 - 145 mmol/L 01/19/2024 7:03 [facility] Potassium 4.4 3.5 - 5.0 mmol/L 01/19/2024 7:03 [facility] Chloride 103 96 - 110 mmol/L 01/19/2024 7:03 [facility] CO2 Total 29 22 - 32 mmol/L 01/19/2024 7:03 [facility] Anion Gap 2(L) 5 - 14 mmol/L 01/19/2024 7:03 [facility] Glucose 69(L) 70 - 99 mg/dl 01/19/2024 7:03 [facility] Calcium 8.8 8.5 - 10.5 mg/dL 01/19/2024 7:03 [facility] BUN 21 10 - 26 mg/dL 01/19/2024 7:03 EDT [facility] Creatinine 0.57 0.52 - 1.04 mg/dL 01/19/2024 7:03 EDT [facility] eGFR 103 >60 mL/min/1.73 m2 01/19/2024 7:03 EDT [facility] Blood VENOUS BLOOD / Unknown Venipuncture / Unknown 01/19/2024 6:08 EDT 01/19/2024 6:12 EDT Jaison Cevallos MD CHEMISTRY & BLOOD GA S ORDERABLES Performing Organization Address [facility] de Phone Number [facility] [address] [place] [address] * (ABNORMAL) CA 27.29 (01/19/2024 6:08 EDT) CA 27.29 179.6(H) <38.0 U/mL 01/20/2024 8:50 EDT [facility] Comment: NOTE: Serum CA 27.29 concentration should not be interpreted as absolute evidence for the presence or absence of malignant disease. Assayed on Siemens ADVIA Centaur XPT using chemiluminescent technology. ??Values obtained by using different assay methods cannot be used interchangeably. Blood VENOUS BLOOD / Unknown Venipuncture / Unknown 01/19/2024 6:08 EDT 01/19/2024 6:12 EDT Dalila Painting MD CHEMISTRY & BLOOD GA S ORDERABLES Performing Organization Address City/[facility]/ZIP Co de Phone Number [facility] [address] [place] [address] * FLUID DIFFERENTIAL (01/18/2024 14:20 EDT) Neutrophils Fluid Relative 31 % 01/18/2024 17:19 EDT [facility] Lymphocytes Fluid Relative 12 % 01/18/2024 17:19 EDT [facility] [place]/Macrophage 53 % 17:19 EDT [facility] Mesothelial Cells Fluid Relative 4 % 01/18/2024 17:19 EDT [facility] Fluid ASCITIC FLUID / Unknown 01/18/2024 14:20 EDT 01/18/2024 14:51 EDT Dalila Painting MD GEN LAB UNIT COLLECT ORDERABLES Performing Organization Address [facility] Co de Phone Number [facility] [address] [place] [address] * FLUID CELL COUNT (01/18/2024 14:20 EDT) RBC, Fluid <10,000 /cmm 01/18/2024 15:00 EDT [facility] Nucleated Cells, fluid 207 /cmm 01/18/2024 15:00 EDT [facility] Comment, fluid Clear Yellow 01/18/2024 15:00 EDT [facility] Fluid ASCITIC FLUID / Unknown 01/18/2024 14:20 EDT 01/18/2024 14:51 EDT Dalila Painting MD HEMATOLOGY & PF4 ORD ERABLES Performing Organization Address [facility] Co de Phone Number [facility] [address] [place] [address] * US LOWER VENOUS DUPLEX (DVT) RIGHT [...] Medical History Anticoagulation therapy. Kaylah Vieira MD IM US VASCULAR ORD ERABLES * (ABNORMAL) BASIC METABOLIC PANEL (BMP) (01/18/2024 5:46 EDT) Sodium 134(L) 136 - 145 mmol/L 01/18/2024 6:51 EDT [facility] Potassium 4.4 3.5 - 5.0 mmol/L 01/18/2024 6:[facility] Chloride 100 96 - 110 mmol/L 01/18/2024 6:51 [facility] CO2 Total 30 22 - 32 mmol/L 01/18/2024 6:51 [facility] Anion Gap 4(L) 5 - 14 mmol/L 01/18/2024 6:51 [facility] Glucose 98 70 - 99 mg/dl 01/18/2024 6:51 [facility] Calcium 8.7 8.5 - 10.5 mg/dL 01/18/2024 6:51 [facility] BUN 23 10 - 26 mg/dL 01/18/2024 6:51 [facility] Creatinine 0.62 0.52 - 1.04 mg/dL 01/18/2024 6:51 [facility] eGFR 101 >60 mL/min/1.73 m2 01/18/2024 6:51 [facility] Blood BLOOD SAMPLE TAKEN FROM CENTRAL LINE / Unknown Port / Unknown 01/18/2024 5:46 EDT 01/18/2024 5:54 EDT Jaison Cevallos MD CHEMISTRY & BLOOD GA S ORDERABLES [facility] [address] [place] [address] * (ABNORMAL) COMPLETE BLOOD COUNT (01/17/2024 4:16 EDT) WBC 13.71(H) 4.00 - 12.40 K/cmm 01/17/2024 4:31 EDT [facility] RBC 2.05(L) 3.86 - 5.04 M/cmm 01/17/2024 4:31 [facility] Hemoglobin 7.6(L) 11.6 - 15.2 g/dL 01/17/2024 4:31 [facility] HCT 23.4(L) 34.9 - 44.4 % 01/17/2024 4:31 [facility] MCV 114(H) 81 - 98 fL 01/17/2024 4:31 [facility] MCH 37.1(H) 26.7 - 33.3 pg 01/17/2024 4:31 [facility] MCHC 32.5 32.1 - 35.9 g/dL 01/17/2024 4:31 [facility] LABORATORY SERVICES RDW-CV 24.9(H) <14.7 % 01/17/2024 4:31 [facility]ORY [facility] RDW-SD 104.2(H) <50.4 fl 01/17/2024 4:31 [facility] LABORATORY SERVICES PLT 131(L) 141 - 377 K/cmm 01/17/2024 4:31 [facility] MPV 11.0 9.5 - 12.7 fL 01/17/2024 4:31 [facility] Blood BLOOD SAMPLE TAKEN FROM CENTRAL LINE / Unknown Port / Unknown 01/17/2024 4:16 EDT 01/17/2024 4:25 EDT Masha Russell MD HEMATOLOGY & PF4 ORD ERABLES [facility] [address] [place] [address] * (ABNORMAL) BASIC METABOLIC PANEL (BMP) (01/17/2024 4:16 EDT) Sodium 135(L) 136 - 145 mmol/L 01/17/2024 4:56 EDT [facility] Potassium 3.8 3.5 - 5.0 mmol/L 01/17/2024 4:56 [facility] Chloride 97 96 - 110 mmol/L 01/17/2024 4:56 EDT [facility] CO2 Total 36(H) 22 - 32 mmol/L 01/17/2024 4:56 EDT [facility] Anion Gap 2(L) 5 - 14 mmol/L 01/17/2024 4:56 EDT [facility] Glucose 111(H) 70 - 99 mg/dl 01/17/2024 4:56 EDT [facility] Calcium 8.4(L) 8.5 - 10.5 mg/dL 01/17/2024 4:56 EDT [facility] BUN 22 10 - 26 mg/dL 01/17/2024 4:56 T [facility] Creatinine 0.56 0.52 - 1.04 mg/dL 01/17/2024 4:56 EDT [facility] eGFR 103 >60 mL/min/1.73 m2 01/17/2024 4:56 T [facility] Blood BLOOD SAMPLE TAKEN FROM CENTRAL LINE / Unknown Port / Unknown 01/17/2024 4:16 EDT 01/17/2024 4:29 EDT Jaison Cevallos MD CHEMISTRY & BLOOD GA S ORDERABLES [facility] [address] [place] [id number] * SARS COV2, FLU A/B, RSV DETECT BY PCR (01/16/2024 16:41 EDT) FLU A RNA Result (FLARES) Negative Negative 01/16/2024 17:50 EDT [facility] FLU B RNA Result (FLBRES) Negative Negative 01/16/2024 17:50 EDT [facility] RSV RNA Result (RSVRES) Negative Negative 01/16/2024 17:50 EDT [facility] COVID-19 rt-PCR Result Negative Negative 01/16/2024 17:50 EDT [facility] Comment: Negative results do not preclude 2019-nCoV infection and should not be used as the sole basis for treatment or other patient management decisions. Negative results must be combined with clinical observations, patient history, and epidemiological information. Performed on the [employer] Gene[employer]pert Instrument Swab NASOPHARYNGEAL STRUCTURE / Unknown Swab / Unknown 01/16/2024 16:41 EDT 01/16/2024 16:50 EDT Dalila Painting MD MICROBIOLOGY - GENER AL ORDERABLES Performing Organization Address [facility] Co de Phone Number [facility] [address] [place] [address] * (ABNORMAL) DIFFERENTIAL, AUTOMATED MANUAL (01/16/2024 8:35 EDT) % Neutrophils 88.6 Not Indicated % 01/16/2024 9:23 EDT [facility] % Lymphocytes 7.0 Not Indicated % 01/16/2024 9:23 T [facility] % Monocytes 4.4 Not Indicated % 01/16/2024 9:23 [facility] Absolute Neutrophils 22.66(H) 2.20 - 8.85 K/cmm 01/16/2024 9:23 T [facility] Absolute Lymphocytes 1.79 1.09 - 3.30 K/cmm 01/16/2024 9:23 T [facility] Absolute Monocytes 1.13(H) 0.10 - 0.80 K/cmm 01/16/2024 9:23 [facility] Type of Differential: Manual 01/16/2024 9:23 EDT [facility] Blood BLOOD SAMPLE TAKEN FROM CENTRAL LINE / Unknown Port / Unknown 01/16/2024 8:35 EDT 01/16/2024 8:43 EDT Kaylah Vieira MD HEMATOLOGY & PF4 OR DERABLES Performing Organization Address City/[facility]/ZIP Co de Phone Number [facility] [address] [place] [address] * (ABNORMAL) COMPLETE BLOOD COUNT AND DIFFERENTIAL (01/16/2024 8:35 EDT) WBC 25.58(H) 4.00 - 12.40 K/cmm 01/16/2024 8:58 [facility] RBC 2.27(L) 3.86 - 5.04 M/cmm 01/16/2024 8:58 [facility] Hemoglobin 8.4(L) 11.6 - 15.2 g/dL 01/16/2024 8:58 [facility] HCT 25.1(L) 34.9 - 44.4 % 01/16/2024 8:58 [facility] MCV 111(H) 81 - 98 fL 01/16/2024 8:58 [facility] MCH 37.0(H) 26.7 - 33.3 pg 01/16/2024 8:58 [facility] MCHC 33.5 32.1 - 35.9 g/dL 01/16/2024 8:58 [facility] RDW-CV 25.0(H) <14.7 % 01/16/2024 8:58 [facility] RDW-SD 99.6(H) <50.4 fl 01/16/2024 8:58 [facility] PLT 198 141 - 377 K/cmm 01/16/2024 8:58 [facility] MPV 10.8 9.5 - 12.7 fL 01/16/2024 8:58 [facility] Nucleated Red Blood Cells 1(H) <=0 /100WBC'S 01/16/2024 8:58 [facility] Blood BLOOD SAMPLE TAKEN FROM CENTRAL LINE / Unknown Port / Unknown 01/16/2024 8:35 EDT 01/16/2024 8:43 EDT Kaylah Vieira MD PACKAGES & DNA PROB E ORDERABLES [facility] [address] [place] [address] * XR CHEST 2 VIEWS (01/16/2024 7:12 EDT) Anatomical Region Laterality Modality Computed Radiogr aphy 01/16/2024 8:50 EDT Impressions 01/16/2024 8:50 EDT 1. ??No acute abnormality. 2. ??Improving bilateral linear atelectasis. 3. ??Right chest port and catheter. I have personally reviewed the images and the above interpretation and agree with the findings. [id number] Narrative 01/16/2024 8:50 EDT XR CHEST 2 [...] overlying the lumbar spine. Resulting Agency Comment [id number] Procedure Note Evan Garcia MD - 01/16/2024 [...] the above interpretation andagree with the findings. [id number] James Izaguirre MD IMG DIAGNOSTIC AMANDA GING ORDERABLES * (ABNORMAL) BACTERIAL CULTURE, URINE (01/16/2024 6:39 EDT) Organism ID 10, 000 to 100,000 CFU/ml Enterococcus faecalis(A) VITEK SUSCEPTIBILITY 01/19/2024 8:06 EDT [facility] Comment: Ampicillin or amoxicillin are the drugs of choice for treating uncomplicated cystitis caused by Enterococcus (including VRE). Organism ID 10, 000 to 100,000 CFU/ml Usual urogenital antonia 01/19/2024 8:06 EDT [facility] Urine URINE SPECIMEN OBTAINED BY CLEAN CATCH PROCEDURE / Unknown Urine Collect / Unknown 01/16/2024 6:39 EDT 01/16/2024 6:54 EDT Narrative Organism Antibiotic Method Susceptibility Enterococcus faecalis Nitrofurantoin VITEK SUSCEPTIBIL ITY <=16 ug/mL: Susceptible Enterococcus faecalis Vancomycin VITEK SUSCEPTIBILIT Y 1 ug/mL: Susceptible James Izaguirre MD MICROBIOLOGY - GEN ERAL ORDERABLES [facility] [address] [place] [address] * (ABNORMAL) UA CHEMICAL & SEDIMENT + REFLEX TO CULTURE (01/16/2024 6:39 EDT) Color UA Yellow Colorless, Yellow 01/16/2024 6:54 EDT [facility] Clarity UA Clear Clear 01/16/2024 6:54 EDT [facility] Glucose UA Negative Negative mg/dL 01/16/2024 6:54 EDT [facility] Bilirubin UA 1+(A) Negative 01/16/2024 6:54 EDT [facility] Ketones UA Trace(A) Negative 01/16/2024 6:54 EDT [facility] Specific [place], Urine 1.022 1.001 - 1.030 01/16/2024 6[facility] Blood UA Negative Negative 01/16/2024 6:54 [facility] Urobilinogen UA 1.0 0.2-1.0 mg/dL mg/dL 01/16/2024 6:54 [facility] Nitrite UA Negative Negative 01/16/2024 6:54 [facility] Leukocyte Esterase UA 2+(A) Negative 01/16/2024 6:54 [facility] Protein UA Trace(A) Negative mg/dL 01/16/2024 6:54 [facility] pH, UA 6.0 <8.5 01/16/2024 6:54 [facility] Urine RBC Count, Auto 0 - 2 0 - 2 Cells/HPF 01/16/2024 6:54 [facility] Urine WBC Count, Auto 10 - 50(A) 0 - 3 Cells/HPF 01/16/2024 6:54 [facility] Urine Squamous Count, Auto None Seen None Seen Cells/HPF 01/16/2024 6:54 [facility] Urine Hyaline Cast Count, Auto <=10 <=10 Casts/LPF 01/16/2024 6:54 [facility] Urine Bacteria Count, Auto None Seen None Seen Bacteria/HP F 01/16/2024 6:54 [facility] Urine URINE SPECIMEN OBTAINED BY CLEAN CATCH PROCEDURE / Unknown Urine Collect / Unknown 01/16/2024 6:39 EDT 01/16/2024 6:44 EDT Narrative [facility] - 01/16/2024 6:54 EDT A Urine Culture test has been reflexively ordered based on result criteria from the Urine Sediment Analysis. Urine Sediment Analysis results are unreliable on urines that are unrefrigerated for >2 hrs or refrigerated >8 hrs. James Izaguirre MD URINALYSIS ORDERAB LES [facility] [address] [place] [address] * BACTERIAL CULTURE, BLOOD (01/16/2024 6:28 EDT) Organism ID No Growth at 5 days 01/21/2024 6:45 EDT [facility] Blood VENOUS BLOOD / Unknown Venipuncture / Unknown 01/16/2024 6:28 EDT 01/16/2024 6:35 EDT James Izaguirre MD MICROBIOLOGY - GEN ERAL ORDERABLES [facility] [address] [place] [address] * BACTERIAL CULTURE, BLOOD (01/16/2024 6:28 EDT) Organism ID No Growth at 5 days 01/21/2024 6:45 EDT [facility] Blood VENOUS BLOOD / Unknown Venipuncture / Unknown 01/16/2024 6:28 EDT 01/16/2024 6:35 EDT James Izaguirre MD MICROBIOLOGY - GEN ERAL ORDERABLES Performing Organization Address City/[facility]/ZIP Co de Phone Number [facility] [address] [place] [address] * BACTERIAL CULTURE, BLOOD (01/16/2024 5:46 EDT) Organism ID No Growth at 5 days 01/21/2024 6:01 EDT [facility] Blood BLOOD SAMPLE TAKEN FROM CENTRAL LINE / Unknown Port / Unknown 01/16/2024 5:46 EDT 01/16/2024 5:53 EDT James Izaguirre MD MICROBIOLOGY - GEN ERAL ORDERABLES [facility] [address] [place] [address] * (ABNORMAL) BASIC METABOLIC PANEL (BMP) (01/16/2024 5:19 EDT) Sodium 132(L) 136 - 145 mmol/L 01/16/2024 5:59 EDT [facility] Potassium 3.9 3.5 - 5.0 mmol/L 01/16/2024 5:59 EDT [facility] Chloride 92(L) 96 - 110 mmol/L 01/16/2024 5:59 EDT [facility] CO2 Total 35(H) 22 - 32 mmol/L 01/16/2024 5:59 EDT [facility] Anion Gap 5 5 - 14 mmol/L 01/16/2024 5:59 EDT [facility] Glucose 81 70 - 99 mg/dl 01/16/2024 5:59 EDT [facility] Calcium 8.7 8.5 - 10.5 mg/dL 01/16/2024 5:59 EDT [facility] BUN 22 10 - 26 mg/dL 01/16/2024 5:59 EDT [facility] Creatinine 0.71 0.52 - 1.04 mg/dL 01/16/2024 5:59 EDT [facility] eGFR 96 >60 mL/min/1.73 m2 01/16/2024 5:59 T [facility] Blood BLOOD SAMPLE TAKEN FROM CENTRAL LINE / Unknown Port / Unknown 01/16/2024 5:19 EDT 01/16/2024 5:25 EDT Jaison Cevallos MD CHEMISTRY & BLOOD GA S ORDERABLES [facility] [address] [place] [address] * (ABNORMAL) BASIC METABOLIC PANEL (BMP) (01/15/2024 5:29 EDT) Sodium 132(L) 136 - 145 mmol/L 01/15/2024 6:17 EDT [facility] Potassium 3.7 3.5 - 5.0 mmol/L 01/15/2024 6:17 EDT [facility] Chloride 93(L) 96 - 110 mmol/L 01/15/2024 6:17 [facility] CO2 Total 36(H) 22 - 32 mmol/L 01/15/2024 6:17 [facility] Anion Gap 3(L) 5 - 14 mmol/L 01/15/2024 6:17 [facility] Glucose 93 70 - 99 mg/dl 01/15/2024 6:17 [facility] Calcium 8.5 8.5 - 10.5 mg/dL 01/15/2024 6:17 [facility] BUN 23 10 - 26 mg/dL 01/15/2024 6:17 [facility] Creatinine 0.61 0.52 - 1.04 mg/dL 01/15/2024 6:17 [facility] eGFR 101 >60 mL/min/1.73 m2 01/15/2024 6:17 [facility] Blood BLOOD SAMPLE TAKEN FROM CENTRAL LINE / Unknown Port / Unknown 01/15/2024 5:29 EDT 01/15/2024 5:33 EDT Jaison Cevallos MD CHEMISTRY & BLOOD GA S ORDERABLES [facility] [address] [place] [address] * PHOSPHORUS (01/14/2024 5:31 EDT) Phosphorus 3.8 2.5 - 4.5 mg/dL 01/14/2024 6:08 EDT [facility] Blood VENOUS BLOOD / Unknown Port / Unknown 01/14/2024 5:31 EDT 01/14/2024 5:38 EDT Michelle Emery DO CHEMISTRY & BLOOD GA S ORDERABLES [facility] [address] [place] [address] * (ABNORMAL) BASIC METABOLIC PANEL (BMP) (01/14/2024 5:31 EDT) Sodium 131(L) 136 - 145 mmol/L 01/14/2024 6:08 [facility] Potassium 3.9 3.5 - 5.0 mmol/L 01/14/2024 6:08 [facility] Chloride 94(L) 96 - 110 mmol/L 01/14/2024 6:08 [facility] CO2 Total 34(H) 22 - 32 mmol/L 01/14/2024 6:08 [facility] Anion Gap 3(L) 5 - 14 mmol/L 01/14/2024 6:08 [facility] Glucose 107(H) 70 - 99 mg/dl 01/14/2024 6:08 [facility] Calcium 8.5 8.5 - 10.5 mg/dL 01/14/2024 6:08 [facility] BUN 20 10 - 26 mg/dL 01/14/2024 6:08 [facility] Creatinine 0.68 0.52 - 1.04 mg/dL 01/14/2024 6:08 [facility] eGFR 98 >60 mL/min/1.73 m2 01/14/2024 6:08 [facility] Blood VENOUS BLOOD / Unknown Port / Unknown 01/14/2024 5:31 EDT 01/14/2024 5:38 EDT Jaison Cevallos MD CHEMISTRY & BLOOD GA S ORDERABLES [facility] [address] [place] [id number] * MAGNESIUM (01/14/2024 5:31 EDT) Magnesium 2.2 1.7 - 2.8 mg/dL 01/14/2024 6:08 [facility] Blood VENOUS BLOOD / Unknown Port / Unknown 01/14/2024 5:31 EDT 01/14/2024 5:38 EDT Jaison Cevallos MD CHEMISTRY & BLOOD GA S ORDERABLES [facility] [address], [place] [id number] * (ABNORMAL) COMPLETE BLOOD COUNT (01/14/2024 5:31 EDT) WBC 16.80(H) 4.00 - 12.40 K/cmm 01/14/2024 5:46 T [facility] RBC 2.01(L) 3.86 - 5.04 M/cmm 01/14/2024 5:46 [facility] Hemoglobin 7.3(L) 11.6 - 15.2 g/dL 01/14/2024 5:46 [facility] HCT 21.5(L) 34.9 - 44.4 % 01/14/2024 5:46 [facility] MCV 107(H) 81 - 98 fL 01/14/2024 5:46 [facility] MCH 36.3(H) 26.7 - 33.3 pg 01/14/2024 5:46 [facility] MCHC 34.0 32.1 - 35.9 g/dL 01/14/2024 5:46 [facility] RDW-CV 22.7(H) <14.7 % 01/14/2024 5:46 [facility] RDW-SD 87.8(H) <50.4 fl 01/14/2024 5:46 [facility] PLT 169 141 - 377 K/cmm 01/14/2024 5:46 [facility] MPV 10.5 9.5 - 12.7 fL 01/14/2024 5:46 [facility] Nucleated Red Blood Cells 1(H) <=0 /100WBC'S 01/14/2024 5:46 [facility] Blood VENOUS BLOOD / Unknown Port / Unknown 01/14/2024 5:31 EDT 01/14/2024 5:38 EDT Jaison Cevallos MD HEMATOLOGY & PF4 ORD ERABLES [facility] [address] [place] [address] * HISTOPLASMA AND BLASTOMYCES AG, EIA, URINE (01/13/2024 1:15 EDT) Histoplasma/Blasto myces Ag Result Not Detected Not Detected 01/17/2024 14:02 EDT [facility] [employer] Comment: No antigen from Histoplasma or Blastomyces detected. ?? False negative results may occur depending on extent of disease, and/or site of infection. ?? Repeat testing on a new specimen if clinically indicated. ?? Histoplasma/Blasto myces Ag Value Not Detected ng/mL 01/17/2024 14:02 EDT [facility] [employer] [facility] Comment: ADDITIONAL INFORMATION This test was developed and its performance characteristics determined by [facility] in a manner consistent with CLIA requirements. This test has not been cleared or approved by the U.S. Food and Drug Administration. Test Performed by: [facility] - [address] [address] [employer]: Abby Rubi Ph.D.; CLIA# [id number] Urine URINE / Unknown Urine Collect / Unknown 01/13/2024 1:15 EDT 01/13/2024 1:21 EDT Renee Garcia MD URINALYSIS ORDERABLE S [facility] [address] [place] [address] * BACTERIAL CULTURE, BLOOD (01/12/2024 20:17 EDT) Organism ID No Growth at 5 days 01/17/2024 21:31 EDT [facility] Blood VENOUS BLOOD / Unknown Venipuncture / Unknown 01/12/2024 20:17 EDT 01/12/2024 21:16 EDT Renee Garcia MD MICROBIOLOGY - GENER AL ORDERABLES Performing Organization Address [facility] Co de Phone Number [facility] [address] [place] [address] * (ABNORMAL) DIFFERENTIAL, AUTOMATED MANUAL (01/12/2024 19:44 EDT) % Neutrophils 87.0 Not Indicated % 01/13/2024 11:12 EDT [facility] % Lymphocytes 4.3 Not Indicated % 01/13/2024 11:12 EDT [facility] % Monocytes 8.7 Not Indicated % 01/13/2024 11:12 EDT [facility] Absolute Neutrophils 15.47(H) 2.20 - 8.85 K/cmm 01/13/2024 11:12 EDT [facility] Absolute Lymphocytes 0.76(L) 1.09 - 3.30 K/cmm 01/13/2024 11:12 EDT [facility] Absolute Monocytes 1.55(H) 0.10 - 0.80 K/cmm 01/13/2024 11:12 EDT [facility] Type of Differential: Manual 01/13/2024 11:12 EDT [facility] Blood VENOUS BLOOD / Unknown Venipuncture / Unknown 01/12/2024 19:44 EDT 01/12/2024 19:52 EDT Michelle Emery DO HEMATOLOGY & PF4 ORD ERABLES Performing Organization Address [facility] Co de Phone Number [facility] [address] [place] [address] * MISCELLANEOUS TEST, FRESNO (01/12/2024 19:44 EDT) Pathologist [facility] Miscellaneous Test, [place] SEE NOTE 01/16/2024 15:56 EDT [facility] Comment: Test ? Result ? Flag ??Unit ??RefValue M pneumoniae PCR + Macrolide Reflex ??Specimen source ?bronchial lavage ?M. pneumoniae PCR ?Negative ? Negative ? ADDITIONAL INFORMATION ?This test was developed and its performance characteristics ?determined by [facility] in a manner consistent with CLIA ?requirements. This test has not been cleared or approved by ?the U.S. Food and Drug Administration. ?Test Performed by: ?[facility] ?[address] [place] [id number] ?[employer]: Abby Rubi Ph.D.; CLIA# [id number] Swab ORAL / Unknown 01/12/2024 19 :44 EDT 01/12/2024 22:24 EDT Renee Garcia MD CHEMISTRY & BLOOD GA S ORDERABLES [facility] [address] [place] [id number] * ANAPLASMA AND BABESIA TESTING BY PCR (01/12/2024 19:44 EDT) Anaplasma phagocytophilum Negative Negative 01/13/2024 10:45 EDT [facility] Babesia Species Negative Negative 10:45 EDT [facility] Blood VENOUS BLOOD / Unknown Venipuncture / Unknown 01/12/2024 19:44 EDT 01/12/2024 19:53 EDT Narrative [facility] - 01/13/2024 10:45 EDT This test was developed and its performance characteristics determined by [facility]. It has not been cleared or [...] BLOOD GA S ORDERABLES Performing Organization Address [facility] de Phone Number [facility] [address] [place] [address] * BACTERIAL CULTURE, BLOOD (01/12/2024 19:44 EDT) Organism ID No Growth at 5 days 01/17/2024 20:46 EDT [facility] Blood VENOUS BLOOD / Unknown Venipuncture / Unknown 01/12/2024 19:44 EDT 01/12/2024 20:45 EDT Renee Garcia MD MICROBIOLOGY - GENER AL ORDERABLES Performing Organization Address [facility] de Phone Number [facility] [address] [place] [address] * MISCELLANEOUS TEST, [place] (01/12/2024 19:44 EDT) Miscellaneous Test, [place] SEE NOTE 01/16/2024 13:33 EDT [facility] Comment: Test ? Result ?Flag ??Unit ?? RefValue Aspergillus Ag, S ?<0.500 ?index ??<0.5 ? ADDITIONAL INFORMATION ?This is a qualitative test and the resulted index value is ?not indicative of disease severity. ??Serial testing is ?recommended for patients at high risk for invasive ?aspergillosis. ?This assay was performed using the FDA-cleared [employer] ?Platelia Aspergillus Galactomannan EIA. ?Test Performed by: ?[facility] ?[address] [place] [address] ?[employer]: Abby Rubi Ph.D.; CLIA# [id number] Blood VENOUS BLOOD / Unknown Venipuncture / Unknown 01/12/2024 19:44 EDT 01/12/2024 19:53 EDT Renee Garcia MD CHEMISTRY & BLOOD GA S ORDERABLES Performing Organization Address [facility]/State/ZIP Co de Phone Number [facility] [address] [place] [address] * MISCELLANEOUS TEST, FRESNO (01/12/2024 19:44 EDT) Miscellaneous Test, [place] SEE NOTE 01/16/2024 10:47 EDT [facility] [employer] Comment: Test ?Result ? Flag ??Unit ?? RefValue Histoplasma/Blastomyces Ag, EIA, S ??Histoplasma/Blastomyces Ag ?Not Detected ?Not Detected ?Result ?No antigen from Histoplasma or Blastomyces detected. ??False ?negative results may occur depending on extent of disease, ?and/or site of infection. ??Repeat testing on a new specimen ?if clinically indicated. ??Histoplasma/Blastomyces Ag ?Not Detected ? ng/mL ?Value ? ADDITIONAL INFORMATION ?This test was developed and its performance characteristics ?determined by [facility] in a manner consistent with CLIA ?requirements. This test has not been cleared or approved by ?the U.S. Food and Drug Administration. ?Test Performed by: ?[facility] ?[address] [place] [address] ?Installers Mechanical: Abby Rubi Ph.D.; CLIA# [id number] Blood VENOUS BLOOD / Unknown Venipuncture / Unknown 01/12/2024 19:44 EDT 01/12/2024 19:51 EDT Renee Garcia MD CHEMISTRY & BLOOD GA S ORDERABLES [facility] [address] [place] [address] * PHOSPHORUS (01/12/2024 19:44 EDT) Phosphorus 3.6 2.5 - 4.5 mg/dL 01/12/2024 20:08 [facility] Blood VENOUS BLOOD / Unknown Venipuncture / Unknown 01/12/2024 19:44 EDT 01/12/2024 19:52 EDT Michelle Emery DO CHEMISTRY & BLOOD GA S ORDERABLES [facility] [address] [place] [address] * (ABNORMAL) COMPLETE BLOOD COUNT (01/12/2024 19:44 EDT) WBC 17.78(H) 4.00 - 12.40 K/cmm 01/12/2024 20:08 [facility] RBC 2.29(L) 3.86 - 5.04 M/cmm 01/12/2024 20:08 [facility] Hemoglobin 8.1(L) 11.6 - 15.2 g/dL 01/12/2024 20:08 [facility] HCT 24.3(L) 34.9 - 44.4 % 01/12/2024 20:08 [facility] MCV 106(H) 81 - 98 fL 01/12/2024 20:08 [facility] MCH 35.4(H) 26.7 - 33.3 pg 01/12/2024 20:08 [facility] MCHC 33.3 32.1 - 35.9 g/dL 01/12/2024 20:08 [facility] RDW-CV 22.5(H) <14.7 % 01/12/2024 20:08 [facility] RDW-SD 86.6(H) <50.4 fl 01/12/2024 20:08 [facility] PLT 193 141 - 377 K/cmm 01/12/2024 20:08 [facility] MPV 10.7 9.5 - 12.7 fL 01/12/2024 20:08 [facility] Blood VENOUS BLOOD / Unknown Venipuncture / Unknown 01/12/2024 19:44 EDT 01/12/2024 19:52 EDT Jaison Cevallos MD HEMATOLOGY & PF4 ORD ERABLES [facility] [address] [place] [address] * MAGNESIUM (01/12/2024 19:44 EDT) Pathologist [facility] Magnesium 2.1 1.7 - 2.8 mg/dL 01/12/2024 20:08 EDT [facility] Blood VENOUS BLOOD / Unknown Venipuncture / Unknown 01/12/2024 19:44 EDT 01/12/2024 19:52 EDT Jaison Cevallos MD CHEMISTRY & BLOOD GA S ORDERABLES Performing Organization Address City/[facility]/ZIP Co de Phone Number [facility] [address] [place] [address] * (ABNORMAL) BASIC METABOLIC PANEL (BMP) (01/12/2024 19:44 EDT) Pathologist [facility] Sodium 134(L) 136 - 145 mmol/L 01/12/2024 20:08 [facility] Potassium 3.6 3.5 - 5.0 mmol/L 01/12/2024 20:08 [facility] Chloride 99 96 - 110 mmol/L 01/12/2024 20:08 [facility] CO2 Total 25 22 - 32 mmol/L 01/12/2024 20:08 [facility] Anion Gap 10 5 - 14 mmol/L 01/12/2024 20:08 [facility] Glucose 137(H) 70 - 99 mg/dl 01/12/2024 20:08 [facility] Calcium 8.1(L) 8.5 - 10.5 mg/dL 01/12/2024 20:08 [facility] BUN 17 10 - 26 mg/dL 01/12/2024 20:08 EDT [facility] Creatinine 0.59 0.52 - 1.04 mg/dL 01/12/2024 20:08 EDT [facility] eGFR 102 >60 mL/min/1.73 m2 01/12/2024 20:08 EDT [facility] Blood VENOUS BLOOD / Unknown Venipuncture / Unknown 01/12/2024 19:44 EDT 01/12/2024 19:52 EDT Jaison Cevallos MD CHEMISTRY & BLOOD GA S ORDERABLES Performing Organization Address City/[facility]/ZIP Co de Phone Number [facility] [address] [phone] * [place] ABDOM PARACENTESIS DX/THER W/O IMAGING GUIDANCE, HC - ABDOM PARACENTESIS DX/THER W/O IMAGING GUIDANCE (01/12/2024 13:39 EDT) Narrative [facility] POINT OF CARE - 01/12/2024 13:39 EDT [...] to verify the correct patient, procedure, equipment, marketing support specialist and site/side marked as required. Initial or [...] Jackie Juan MD PROCEDURE/MINOR AJ GICAL ORDERABLES [facility] POINT OF CARE * (ABNORMAL) GLUCOSE 6-PHOSPHATE [...] developed and its performance characteristics determined by [facility] in a manner consistent with CLIA requirements. This test has not been cleared or approved by the U.S. Food and Drug Administration. Test Performed by: [address] [address] [employer]: Abby Rubi Ph.D.; CLIA# [id number] Blood VENOUS BLOOD / Unknown Venipuncture / Unknown 01/12/2024 12:45 EDT 01/12/2024 12:55 EDT Jackie Juan MD CHEMISTRY & BLOOD G ORDERABLES [address] [address] * PHOSPHORUS (01/12/2024 5:33 EDT) Phosphorus 3.5 2.5 - 4.5 mg/dL 01/12/2024 6:10 EDT [facility] Blood VENOUS BLOOD / Unknown Venipuncture / Unknown 01/12/2024 5:33 EDT 01/12/2024 5:41 EDT Michelle Emery DO CHEMISTRY & BLOOD GA S ORDERABLES Performing Organization Address City/[facility]/ZIP Co de Phone Number [facility] [address] [place] [address] * (ABNORMAL) BASIC METABOLIC PANEL (BMP) (01/12/2024 5:33 EDT) Sodium 134(L) 136 - 145 mmol/L 01/12/2024 6:10 T [facility] Potassium 4.1 3.5 - 5.0 mmol/L 01/12/2024 6:10 [facility] Chloride 102 96 - 110 mmol/L 01/12/2024 6:10 [facility] CO2 Total 27 22 - 32 mmol/L 01/12/2024 6:10 [facility] Anion Gap 5 5 - 14 mmol/L 01/12/2024 6:10 [facility] Glucose 105(H) 70 - 99 mg/dl 01/12/2024 6:10 [facility] Calcium 8.9 8.5 - 10.5 mg/dL 01/12/2024 6:10 [facility] BUN 23 10 - 26 mg/dL 01/12/2024 6:10 [facility] Creatinine 0.54 0.52 - 1.04 mg/dL 01/12/2024 6:10 [facility] eGFR 104 >60 mL/min/1.73 m2 01/12/2024 6:10 [facility] Blood VENOUS BLOOD / Unknown Venipuncture / Unknown 01/12/2024 5:33 EDT 01/12/2024 5:41 EDT Jaison Cevallos MD CHEMISTRY & BLOOD GA S ORDERABLES [facility] [address] [place] [address] * MAGNESIUM (01/12/2024 5:33 EDT) [facility] Magnesium 2.5 1.7 - 2.8 mg/dL 01/12/2024 6:10 [facility] Blood VENOUS BLOOD / Unknown Venipuncture / Unknown 01/12/2024 5:33 EDT 01/12/2024 5:41 EDT Jaison Cevallos MD CHEMISTRY & BLOOD GA S ORDERABLES [facility] [address] [place] [address] * (ABNORMAL) COMPLETE BLOOD COUNT (01/12/2024 5:33 EDT) [facility] WBC 13.29(H) 4.00 - 12.40 K/cmm 01/12/2024 5:47 [facility] RBC 2.07(L) 3.86 - 5.04 M/cmm 01/12/2024 5:47 [facility] Hemoglobin 7.4(L) 11.6 - 15.2 g/dL 01/12/2024 5:47 [facility] HCT 22.2(L) 34.9 - 44.4 % 01/12/2024 5:47 [facility] MCV 107(H) 81 - 98 fL 01/12/2024 5:47 [facility] MCH 35.7(H) 26.7 - 33.3 pg 01/12/2024 5:47 [facility] MCHC 33.3 32.1 - 35.9 g/dL 01/12/2024 5:47 [facility] RDW-CV 22.5(H) <14.7 % 01/12/2024 5:47 [facility] RDW-SD 88.0(H) <50.4 fl 01/12/2024 5:47 [facility] PLT 163 141 - 377 K/cmm 01/12/2024 5:47 [facility] MPV 10.9 9.5 - 12.7 fL 01/12/2024 5:47 EDT [facility] Blood VENOUS BLOOD / Unknown Venipuncture / Unknown 01/12/2024 5:33 EDT 01/12/2024 5:41 EDT Jaison Cevallos MD HEMATOLOGY & PF4 ORD ERABLES Performing Organization Address City/[facility] Co de Phone Number [facility] [address] [place] [address] * CALCIUM, IONIZED (01/12/2024 5:33 EDT) Calcium, Ionized 1.20 1.14 - 1.35 mmol/L 01/12/2024 5:57 EDT [facility] Blood VENOUS BLOOD / Unknown Venipuncture / Unknown 01/12/2024 5:33 EDT 01/12/2024 5:40 EDT Kaylah Vieira MD CHEMISTRY & BLOOD G ORDERABLES Performing Organization Address [facility] Co de Phone Number [facility] [address] [place] [address] * ADULT BRONCHOSCOPY PROCEDURE (01/11/2024 16:53 EDT) Narrative [facility] - 01/11/2024 16:53 EDT Procedure [...] Chelsea Logan Chelsea Logan MD PFT ORDERABLES [facility] * NON MEAT GRADER/FNA CYTOLOGY (01/11/2024 16:50 EDT) Note to Patient The following pathology results have been interpreted by your pathologist and may be available to you before your health provider has had the opportunity to review them. Please allow time for your provider to receive these results and explore management options, if applicable. 01/13/2024 8:09 EDT [facility] Final Diagnosis LUNG, LEFT UPPER LOBE, BRONCHIOALVEOLAR LAVAGE, CYTOLOGIC EVALUATION: - Negative for malignancy. - Alveolar macrophages, reactive pneumocytes and benign bronchial cells. - Special stain for fungal organism (GMS) shows few fungal organism morphologically consistent with pooja species. See comment. 01/13/2024 8:09 EDT [facility] Diagnosis Comment The pooja organism present in this specimen may represent oral contamination. See also results of microbiology specimens for further information. Clinical correlation is recommended. Positive and negative GMS controls stained appropriately. 01/13/2024 8:09 EDT [facility] Attestation There was significant resident/fellow involvement in the diagnostic evaluation of this case. By the signature below, the attending physician certifies that they have personally conducted a gross and/or microscopic examination of the described specimens and rendered or confirmed the above diagnosis. 01/13/2024 8:09 EDT [facility] at [address] of the chest 01/13/2024 8:09 EDT [facility] Gross Description A. 40cc's of cloudy white fluid were received and processed by selective cellular enhancement technique. 01/13/2024 8:09 EDT [facility] Resident/Junior w: Keith Maya DO 01/13/2024 8:09 EDT [facility] Performing Lab [facility] 8:09 EDT [facility] Scanned Images 01/13/2024 8:09 T [facility] BAL STRUCTURE OF UPPER LOBE OF LEFT LUNG / Unknown 01/11/2024 16:50 EDT 01/12/2024 6:22 EDT Chelsea Logan MD PATHOLOGY ORDERABLE S [facility] [address] [place] [address] * (ABNORMAL) PNEUMOCYSTIS JIROVECI, MOLECULAR DETECTION, PCR (01/11/2024 16:50 EDT) Specimen Source BAL 11:05 EDT [facility] Future Fleet Result Positive(A A) Not Applicable 01/15/2024 11:05 EDT [facility] Comment: Critical Result. ADDITIONAL INFORMATION This test was developed and its performance characteristics determined by [facility] in a manner consistent with CLIA requirements. This test has not been cleared or approved by the U.S. Food and Drug Administration. Test Performed by: [facility] - [address] [address] [employer] Mechanical: Abby Rubi Ph.D.; CLIA# [id number] Special Information Not Reported 01/15/2024 11:05 EDT [facility] Report Status Not Reported 01/15/2024 11:05 EDT [facility] BAL STRUCTURE OF UPPER LOBE OF LEFT LUNG / Unknown 01/11/2024 16:50 EDT 01/12/2024 7:41 EDT Chelsea Logan MD MICROBIOLOGY - GENE RAL ORDERABLES Performing Organization Address City/[facility]/ZIP Co de Phone Number [address] [address] * NOCARDIA CULTURE AND SMEAR (01/11/2024 16:50 EDT) Organism ID No aerobic actinomycetes isolated 01/27/2024 10:50 EDT [facility] Fungal Smear No Modified acid fast bacilli seen 01/27/2024 10:50 EDT [facility] BAL STRUCTURE OF UPPER LOBE OF LEFT LUNG / Unknown 01/11/2024 16:50 EDT 01/12/2024 7:40 EDT Chelsea Logan MD MICROBIOLOGY - GENE RAL ORDERABLES [facility] [address] [place] [address] * AFB CULTURE/SMEAR, OTHER (01/11/2024 16:50 EDT) Organism ID No acid-fast bacilli isolated [facility] SUSCEPTIBILITY 03/08/2024 7:51 EDT [facility] AFB Smear No Acid Fast Bacilli Seen 03/08/2024 7:51 EDT [facility] BAL STRUCTURE OF UPPER LOBE OF LEFT LUNG / Unknown 01/11/2024 16:50 EDT 01/12/2024 7:40 EDT Chelsea Logan MD MICROBIOLOGY - GENE RAL ORDERABLES Performing Organization Address [facility] Co de Phone Number [facility] [address], [place] [id number] * DIFFERENTIAL, LAVAGE FLUID (01/11/2024 16:50 EDT) Neutrophils Fluid Relative 14 % 01/12/2024 9:08 EDT [facility] Lymphocytes Fluid Relative 19 % 01/12/2024 9:08 EDT [facility] [place]/Macrophage 66 % 9:08 EDT [facility] Eosinophils Fluid Relative 1 % 01/12/2024 9:08 EDT [facility] Path Review Fluid, other 01/12/2024 9:08 EDT [facility] BAL STRUCTURE OF UPPER LOBE OF LEFT LUNG / Unknown 01/11/2024 16:50 EDT 01/12/2024 7:40 EDT Chelsea Logan MD GEN LAB UNIT COLLE T ORDERABLES Performing Organization Address [facility] Co de Phone Number [facility] [address], [place] [id number] * BACTERIAL CULTURE/SMEAR, RESPIRATORY (01/11/2024 16:50 EDT) Organism ID Less than 10,000 CFU/ml usual danny-pharyngeal antonia. No Staphylococcus aureus or Pseudomonas species isolated. 02/07/2024 13:50 EDT [facility] Smear Neutrophils Present 02/07/2024 13:50 EDT [facility] Smear No bacteria seen 02/07/20 13:50 EDT [facility] BAL STRUCTURE OF UPPER LOBE OF LEFT LUNG / Unknown 01/11/2024 16:50 EDT 01/12/2024 7:40 EDT Chelsea Logan MD MICROBIOLOGY - [facility] ORDERABLES Performing Organization Address [facility] Co de Phone Number [facility] [address] [place] [address] * FUNGUS CULTURE/SMEAR (01/11/2024 16:50 EDT) Organism ID Yeast Not Cryptococcus or Dimorphic Fungi 02/09/2024 11:05 EDT [facility] Fungal Smear No Fungi Seen 11:05 EDT [facility] BAL STRUCTURE OF UPPER LOBE OF LEFT LUNG / Unknown 01/11/2024 16:50 EDT 01/12/2024 7:40 EDT Chelsea Logan MD MICROBIOLOGY - [facility] ORDERABLES Performing Organization Address [facility] de Phone Number [facility] [address] [place] [address] * FOLATE (01/11/2024 8:00 EDT) Folate >24.0 See Note ng/mL 01/11/2024 20:13 EDT [facility] Comment: Reference Ranges for Folate: Deficient: ?< 3.4 ng/mL Indeterminate: ??3.4 - 5.4 ng/mL Normal: ? > 5.4 ng/mL The results of this assay can be falsely elevated due to the consumption of Biotin. Blood BLOOD SAMPLE TAKEN FROM CENTRAL LINE / Unknown 01/11/2024 8:00 EDT 01/11/2024 8:08 EDT Narrative [facility] - 01/11/2024 20:13 EDT Slight hemolysis present Hemolysis may elevate Folate result Kaylah Vieira MD CHEMISTRY & BLOOD G ORDERABLES Performing Organization Address [facility] Co de Phone Number [facility] [address] [place] [address] * (ABNORMAL) VITAMIN B12 (01/11/2024 8:00 EDT) Pathologist [facility] Vitamin B12 1,574(H) 211 - 911 pg/mL 01/11/2024 20:15 EDT [facility] Blood BLOOD SAMPLE TAKEN FROM CENTRAL LINE / Unknown 01/11/2024 8:00 EDT 01/11/2024 8:08 EDT Kaylah Vieira MD CHEMISTRY & BLOOD G ORDERABLES [facility] [address] [place] [address] * (ABNORMAL) HEPATIC FUNCTION PANEL (ALB,ALK PHOS,ALT,AST,DBIL,TOT WILY,TOT PROT) (01/11/2024 8:00 EDT) Pathologist [facility] Total Protein 5.3(L) 6.3 - 8.2 g/dL 01/11/2024 15:09 [facility] Comment:Slight hemolysis gonzalez ntified, interpret with caution as results may be affected due to hemolysis. Albumin 2.5(L) 3.4 - 4.9 g/dL 01/11/2024 15:09 [facility] Comment:Slight hemolysis gonzalez ntified, interpret with caution as results may be affected due to hemolysis. Bilirubin, Total 1.2 <1.4 mg/dL 01/11/20 15:09 [facility] Conjugated Bilirubin 0.0 <=0.3 mg/dL 01/11/2024 15:09 [facility] Unconjugated Bilirubin 0.6 <=1.1 mg/dL 01/11/2024 15:09 [facility] Alkaline Phosphatase 312(H) 38 - 126 U/L 01/11/2024 15:09 [facility] Comment:Slight hemolysis gonzalez ntified, hemolysis will decrease ALKP result. Interpret with caution as results may be affected due to hemolysis. ALT 50(H) <35 U/L 01/11/2024 15:09 [facility] AST 69(H) 15 - 46 U/L 01/11/2024 15:09 [facility] Comment:Slight hemolysis gonzalez ntified, interpret with caution as results may be affected due to hemolysis. Calculated Total Bilirubin 0.6 <1.4 mg/dL 01/11/2024 15:09 [facility] Blood BLOOD SAMPLE TAKEN FROM CENTRAL LINE / Unknown 01/11/2024 8:00 EDT 01/11/2024 8:08 EDT Kaylah Vieira MD CHEMISTRY & BLOOD G ORDERABLES [facility] [address] [place] [address] * (ABNORMAL) BASIC METABOLIC PANEL (BMP) (01/11/2024 8:00 EDT) Sodium 133(L) 136 - 145 mmol/L 01/11/2024 8:59 [facility] Potassium 4.6 3.5 - 5.0 mmol/L 01/11/2024 8:59 [facility] Comment:Slight hemolysis gonzalez ntified, interpret with caution as hemolysis will elevate potassium result. Chloride 98 96 - 110 mmol/L 01/11/2024 8:59 [facility] CO2 Total 26 22 - 32 mmol/L 01/11/2024 8:59 [facility] Anion Gap 9 5 - 14 mmol/L 01/11/2024 8:59 [facility] Glucose 95 70 - 99 mg/dl 01/11/2024 8:59 [facility] Calcium 8.7 8.5 - 10.5 mg/dL 01/11/2024 8:59 [facility] BUN 21 10 - 26 mg/dL 01/11/2024 8:59 [facility] Comment: Slight hemolysis identified, interpret with caution as results may be affected due to hemolysis. Creatinine 0.59 0.52 - 1.04 mg/dL 01/11/2024 8:59 EDT [facility] eGFR 102 >60 mL/min/1.7 3m2 01/11/2024 8:59 EDT [facility] Blood BLOOD SAMPLE TAKEN FROM CENTRAL LINE / Unknown 01/11/2024 8:00 EDT 01/11/2024 8:08 EDT Jaison Cevallos MD CHEMISTRY & BLOOD GA S ORDERABLES Performing Organization Address City/[facility]/ZIP Co de Phone Number [facility] [address] [place] [address] * MAGNESIUM (01/11/2024 8:00 EDT) Pathologist [facility] Magnesium 2.3 1.7 - 2.8 mg/dL 01/11/2024 8:59 EDT [facility] Comment:Slight hemolysis gonzalez ntified, interpret with caution as results may be affected due to hemolysis. Blood BLOOD SAMPLE TAKEN FROM CENTRAL LINE / Unknown 01/11/2024 8:00 EDT 01/11/2024 8:08 EDT Jaison Cevallos MD CHEMISTRY & BLOOD GA S ORDERABLES Performing Organization Address [facility] Co de Phone Number [facility] [address] [place] [id number] * (ABNORMAL) COMPLETE BLOOD COUNT (01/11/2024 6:14 EDT) WBC 15.81(H) 4.00 - 12.40 K/cmm 01/11/2024 6:56 EDT [facility] RBC 2.17(L) 3.86 - 5.04 M/cmm 01/11/2024 6:56 EDT [facility] Hemoglobin 7.6(L) 11.6 - 15.2 g/dL 01/11/2024 6:56 EDT [facility] HCT 22.9(L) 34.9 - 44.4 % 01/11/2024 6:56 EDT [facility] MCV 106(H) 81 - 98 fL 01/11/2024 6:56 EDT [facility] MCH 35.0(H) 26.7 - 33.3 pg 01/11/2024 6:56 EDT [facility] MCHC 33.2 32.1 - 35.9 g/dL 01/11/2024 6:56 T [facility] RDW-CV 23.2(H) <14.7 % 01/11/2024 6:56 T [facility] RDW-SD 89.1(H) <50.4 fl 01/11/2024 6:56 T [facility] PLT 232 141 - 377 K/cmm 01/11/2024 6:56 T [facility] MPV 11.5 9.5 - 12.7 fL 01/11/2024 6:56 T [facility] Blood BLOOD SAMPLE TAKEN FROM CENTRAL LINE / Unknown Port / Unknown 01/11/2024 6:14 EDT 01/11/2024 6:29 EDT Jaison Cevallos MD HEMATOLOGY & PF4 ORD ERABLES [facility] [address] [place] [address] * (ABNORMAL) BASIC METABOLIC PANEL (BMP) (01/10/2024 17:08 EDT) Sodium 131(L) 136 - 145 mmol/L 01/10/2024 17:54 EDT [facility] Potassium 4.6 3.5 - 5.0 mmol/L 01/10/2024 17:54 [facility] Comment:Slight hemolysis gonzalez ntified, interpret with caution as hemolysis will elevate potassium result. Chloride 96 96 - 110 mmol/L 01/10/2024 17:54 T [facility] CO2 Total 24 22 - 32 mmol/L 01/10/2024 17:54 T [facility] Anion Gap 11 5 - 14 mmol/L 01/10/2024 17:54 [facility] Glucose 133(H) 70 - 99 mg/dl 01/10/2024 17:54 EDT [facility] Calcium 8.3(L) 8.5 - 10.5 mg/dL 01/10/2024 17:54 EDT [facility] BUN 17 10 - 26 mg/dL 01/10/2024 17:54 EDT [facility] Comment: Slight hemolysis identified, interpret with caution as results may be affected due to hemolysis. Creatinine 0.59 0.52 - 1.04 mg/dL 01/10/2024 17:54 EDT [facility] eGFR 102 >60 mL/min/1.7 3m2 01/10/2024 17:54 EDT [facility] Blood VENOUS BLOOD / Unknown Venipuncture / Unknown 01/10/2024 17:08 EDT 01/10/2024 17:17 EDT Jaison Cevallos MD CHEMISTRY & BLOOD GA S ORDERABLES Performing Organization Address City/[facility] Co de Phone Number [facility] [address] [place] [address] * MAGNESIUM (01/10/2024 17:08 EDT) Magnesium 2.0 1.7 - 2.8 mg/dL 01/10/2024 17:54 EDT [facility] Comment:Slight hemolysis gonzalez ntified, interpret with caution as results may be affected due to hemolysis. Blood VENOUS BLOOD / Unknown Venipuncture / Unknown 01/10/2024 17:08 EDT 01/10/2024 17:17 EDT Jaison Cevallos MD CHEMISTRY & BLOOD GA S ORDERABLES Performing Organization Address City/[facility]/ZIP Co de Phone Number [facility] [address] [place] [address] * FERRITIN (01/10/2024 8:44 EDT) Ferritin 46 10 - 291 ng/mL 01/10/2024 10:21 EDT [facility] Blood BLOOD SAMPLE TAKEN FROM CENTRAL LINE / Unknown 01/10/2024 8:44 EDT 01/10/2024 9:05 EDT Kaylah Vieira MD CHEMISTRY & BLOOD G ORDERABLES Performing Organization Address [facility] de Phone Number [facility] [address], [place] [id number] * (ABNORMAL) TRANSFERRIN SATURATION (01/10/2024 8:44 EDT) Iron 27(L) 37 - 170 ??g/dL 01/10/2024 9:47 EDT [facility] Iron Binding Capacity 250 240 - 450 ??g/dL 01/10/2024 9:47 EDT [facility] Transferrin Saturation 11(L) 15 - 45 % 01/10/2024 9:47 EDT [facility] Blood BLOOD SAMPLE TAKEN FROM CENTRAL LINE / Unknown 01/10/2024 8:44 EDT 01/10/2024 9:05 EDT Kaylah Vieira MD CHEMISTRY & BLOOD G ORDERABLES Performing Organization Address [facility] de Phone Number [facility] [address] [place] [address] * (ABNORMAL) BASIC METABOLIC PANEL (BMP) (01/10/2024 8:44 EDT) Sodium 132(L) 136 - 145 mmol/L 01/10/2024 9:38 EDT [facility] Potassium 3.9 3.5 - 5.0 mmol/L 01/10/2024 9:38 EDT [facility] Chloride 98 96 - 110 mmol/L 01/10/2024 9:38 EDT [facility] CO2 Total 26 22 - 32 mmol/L 01/10/2024 9:38 EDT [facility] Anion Gap 8 5 - 14 mmol/L 01/10/2024 9:38 EDT [facility] Glucose 100(H) 70 - 99 mg/dl 01/10/2024 9:38 EDT [facility] Calcium 8.3(L) 8.5 - 10.5 mg/dL 01/10/2024 9:38 EDT [facility] BUN 16 10 - 26 mg/dL 01/10/2024 9:38 EDT [facility] Creatinine 0.56 0.52 - 1.04 mg/dL 01/10/2024 9:38 EDT [facility] eGFR 103 >60 mL/min/1.73 m2 01/10/2024 9:38 EDT [facility] Blood BLOOD SAMPLE TAKEN FROM CENTRAL LINE / Unknown 01/10/2024 8:44 EDT 01/10/2024 9:05 EDT Jaison Cevallos MD CHEMISTRY & BLOOD GA S ORDERABLES Performing Organization Address City/[facility]/ZIP Co de Phone Number [facility] [address] [place] [address] * MAGNESIUM (01/10/2024 8:44 EDT) Magnesium 2.1 1.7 - 2.8 mg/dL 01/10/2024 9:38 EDT [facility] Blood BLOOD SAMPLE TAKEN FROM CENTRAL LINE / Unknown 01/10/2024 8:44 EDT 01/10/2024 9:05 EDT Jaison Cevallos MD CHEMISTRY & BLOOD GA S ORDERABLES [facility] [address] [place] [address] * (ABNORMAL) COMPLETE BLOOD COUNT (01/10/2024 6:41 EDT) WBC 12.01 4.00 - 12.40 K/cmm 01/10/2024 7:43 EDT [facility] RBC 2.11(L) 3.86 - 5.04 M/cmm 01/10/2024 7:43 [facility] Hemoglobin 7.6(L) 11.6 - 15.2 g/dL 01/10/2024 7:43 [facility] HCT 22.0(L) 34.9 - 44.4 % 01/10/2024 7:43 [facility] MCV 104(H) 81 - 98 fL 01/10/2024 7:43 [facility] MCH 36.0(H) 26.7 - 33.3 pg 01/10/2024 7:43 [facility] MCHC 34.5 32.1 - 35.9 g/dL 01/10/2024 7:43 [facility] RDW-CV 23.8(H) <14.7 % 01/10/2024 7:43 [facility] RDW-SD 88.4(H) <50.4 fl 01/10/2024 7:43 [facility] PLT 195 141 - 377 K/cmm 01/10/2024 7:43 [facility] MPV 11.7 9.5 - 12.7 fL 01/10/2024 7:43 [facility] Blood BLOOD SAMPLE TAKEN FROM CENTRAL LINE / Unknown Port / Unknown 01/10/2024 6:41 EDT 01/10/2024 7:08 EDT Jaison Cevallos MD HEMATOLOGY & PF4 ORD ERABLES [facility] [address] [place] [id number] * CRYPTOCOCCAL ANTIGEN, SERUM (01/10/2024 6:41 EDT) Cryptococcal Ag Serum Negative Negative 01/10/2024 15:14 T [facility] Blood BLOOD SAMPLE TAKEN FROM CENTRAL LINE / Unknown Port / Unknown 01/10/2024 6:41 EDT 01/10/2024 7:21 EDT Michelle Emery DO MICROBIOLOGY - GENER AL ORDERABLES [facility] [address] [place] [address] * (ABNORMAL) ANHTELL, SERUM (01/10/2024 6:41 EDT) Fungitell Quantitative Value >500(A) <60 pg/mL pg/mL 01/12/2024 12:07 EDT [facility] Fungitell Qualitative Result Positive (A) Negative 01/12/2024 12:07 EDT [facility] Comment: (1, 3) Ohay-B-Fapjzj detected. A single positive result should be [...] produce very low levels of (1, 3) Ljcd-A-Ddwhga (BDG) and the Mucorales (e.g., Lichthemia, Mucor and Rhizopus), which are not known to produce BDG. Additionally, the yeast phase of Blastomyces dermatitidis produces little BDG and may not be detected by this assay. Hemolyzed ADDITIONAL INFORMATION This assay was performed using the FDA-cleared Fungitell Assay ([facility], [place], [place], [place]), a kinetic MANDEEP based on modification of the Limulus Amebocyte Lysate pathway. Test Performed by: [address] [address] [employer] Mechanical: Abby Rubi Ph.D.; CLIA# [id number] Blood BLOOD SAMPLE TAKEN FROM CENTRAL LINE / Unknown Port / Unknown 01/10/2024 6:41 EDT 01/10/2024 7:06 EDT Michelle Rupert DO IMMUNOLOGY AND MERRYEZEQUIEL ENG ORDERABLES [facility] [address] [place] [address] * TRANSTHORACIC ECHO (TTE) COMPLETE W/DOPPLER W/CF NO CONTRAST (01/09/2024 16:18 EDT) LV Diastolic Volume 83 mL [id number] [...] color Doppler.The study was interpreted by [facility]. Pertinent images and [...] EDT) 01/09/2024 13:0 6 EDT Scan 2 Sole Polisher PROCEDURE/MINOR AJ GICAL ORDERABLES * IR PARACENTESIS-RADIOLOGY (01/09/2024 9:59 EDT) Anatomical Region Laterality Modality N/A X-Ray Angiograph y 01/10/2024 10:1 2 EDT Impressions 01/10/2024 10:12 EDT 1. Successful ultrasound guided paracentesis. [id number] Narrative 01/10/2024 10:12 EDT ULTRASOUND-GUIDED PARACENTESIS History: [...] current guidelines was used. Resulting Agency Comment [id number] Procedure Note Scriver, David Rowley MD - [...] used. IMPRESSION 1. Successful ultrasound guided paracentesis. [id number] Hugo Vergara MD PhD IMG IR ORDERABL ES * FLUID DIFFERENTIAL (01/09/2024 9:42 EDT) Neutrophils Fluid Relative 18 % 01/09/2024 13:54 EDT [facility] Lymphocytes Fluid Relative 22 % 01/09/2024 13:54 EDT [facility] [place]/Macrophage 46 % 13:54 EDT [facility] Mesothelial Cells Fluid Relative 14 % 01/09/2024 13:54 EDT [facility] Fluid ASCITIC FLUID / Unknown 01/09/2024 9:42 EDT 01/09/2024 12:35 EDT Hugo Vergara MD PhD GEN LAB UNIT CO LLECT ORDERABLES Performing Organization Address City/[facility] Co de Phone Number [facility] [address] [place] [address] * FLUID CELL COUNT (01/09/2024 9:42 EDT) RBC, Fluid <10,000 /cmm 01/09/2024 12:54 EDT [facility] Nucleated Cells, fluid 101 /cmm 01/09/2024 12:54 EDT [facility] Comment, fluid Yellow Slightly cloudy 01/09/2024 12:54 EDT [facility] Fluid ASCITIC FLUID / Unknown 01/09/2024 9:42 EDT 01/09/2024 12:35 EDT Hugo Vergara MD PhD HEMATOLOGY & PF 4 ORDERABLES Performing Organization Address [facility]/ZIP Co de Phone Number [facility] [address] [place] [address] * STREPTOCOCCUS PNEUMONIAE ANTIGEN, URINE (01/09/2024 6:20 EDT) Pathologist [facility] Strep Pneumo Ag Detection, Urine Negative Negative 01/09/2024 9:46 EDT [facility] Urine URINE / Unknown Urine Collect / Unknown 01/09/2024 6:20 EDT 01/09/2024 7:23 EDT Jaison Cevallos MD MICROBIOLOGY - GENER AL ORDERABLES Performing Organization Address [facility]/ZIP Co de Phone Number [facility] [address] [place] [address] * LEGIONELLA ANTIGEN DETECTION, URINE (01/09/2024 6:20 EDT) Pathologist [facility] Legionella Antigen Detection Negative Negative 01/09/2024 9:46 EDT [facility] Urine URINE / Unknown Urine Collect / Unknown 01/09/2024 6:20 EDT 01/09/2024 7:23 EDT Jaison Cevallos MD MICROBIOLOGY - GENER AL ORDERABLES Performing Organization Address [facility] de Phone Number [facility] [address] [place] [id number] * HN LAB CBC SMEAR REVIEW (01/09/2024 6:08 EDT) [facility] Differential Comment Slide was examined by a technologist to verify the WBC and/or platelet count. 01/09/2024 7:11 EDT [facility] Blood VENOUS BLOOD / Unknown Venipuncture / Unknown 01/09/2024 6:08 EDT 01/09/2024 6:34 EDT Jaison Cevallos MD HEMATOLOGY & PF4 ORD ERABLES Performing Organization Address [facility] Co de Phone Number [facility] [address] [place] [address] * (ABNORMAL) COMPLETE BLOOD COUNT (01/09/2024 6:08 EDT) WBC 8.60 4.00 - 12.40 K/cmm 01/09/2024 7:11 [facility] RBC 2.08(L) 3.86 - 5.04 M/cmm 01/09/2024 7:11 [facility] Hemoglobin 7.4(L) 11.6 - 15.2 g/dL 01/09/2024 7:11 [facility] HCT 22.2(L) 34.9 - 44.4 % 01/09/2024 7:11 [facility] MCV 107(H) 81 - 98 fL 01/09/2024 7:11 [facility] MCH 35.6(H) 26.7 - 33.3 pg 01/09/2024 7:11 [facility] MCHC 33.3 32.1 - 35.9 g/dL 01/09/2024 7:11 [facility] RDW-CV 24.5(H) <14.7 % 01/09/2024 7:11 [facility] RDW-SD 91.6(H) <50.4 fl 01/09/2024 7:11 [facility] PLT 124(L) 141 - 377 K/cmm 01/09/2024 7:11 [facility] MPV 11.9 9.5 - 12.7 fL 01/09/2024 7:11 [facility] Blood VENOUS BLOOD / Unknown Venipuncture / Unknown 01/09/2024 6:08 EDT 01/09/2024 6:34 EDT Jaison Cevallos MD HEMATOLOGY & PF4 ORD ERABLES [facility] [address] [place] [address] * EXPANDED RESPIRATORY VIRAL PANEL, PCR (DOES NOT INCLUDE INFLUENZA OR RSV) (01/08/2024 17:10 EDT) Paraflu Type 1 Rslt (PF1RES) Negative Negative 01/08/2024 23:21 EDT [facility] Paraflu Type 2 Rslt (PF2RES) Negative Negative 01/08/2024 23:21 EDT [facility] Paraflu Type 3 Rslt (PF3RES) Negative Negative 01/08/2024 23:21 EDT [facility] Paraflu Type 4 Rslt Negative Negative 01/07 23:21 EDT [facility] Rhinovirus RNA Rslt (RVRES) Negative Negative 01/08/2024 23:21 EDT [facility] Metapneumovirus RNA Rslt (HMVRES) Negative Negative 01/08/2024 23:21 EDT [facility] Adenovirus DNA Rslt (ADVRES) Negative Negative 01/08/2024 23:21 EDT [facility] Swab NASOPHARYNGEAL STRUCTURE / Unknown Swab / Unknown 01/08/2024 17:10 EDT 01/08/2024 17:12 EDT Bambi Porter MD MICROBIOLOGY - GENER AL ORDERABLES [facility] [address] [place] [address] * SARS COV2, FLU A/B, RSV DETECT BY PCR (01/08/2024 17:10 EDT) FLU A RNA Result (FLARES) Negative Negative 01/08/2024 18:26 EDT [facility] FLU B RNA Result (FLBRES) Negative Negative 01/08/2024 18:26 EDT [facility] RSV RNA Result (RSVRES) Negative Negative 01/08/2024 18:26 EDT [facility] COVID-19 rt-PCR Result Negative Negative 01/08/2024 18:26 T [facility] Comment: Negative results do not preclude 2019-nCoV infection and should not be used as the sole basis for treatment or other patient management decisions. Negative results must be combined with clinical observations, patient history, and epidemiological information. Performed on the [employer] Boat Instrument Swab NASOPHARYNGEAL STRUCTURE / Unknown Swab / Unknown 01/08/2024 17:10 EDT 01/08/2024 17:12 EDT Trinh Alcocer PA-C MICROBIOLOGY - GENER AL ORDERABLES [facility] [address] [phone] * (ABNORMAL) COMPREHENSIVE METABOLIC PANEL (CMP) (01/08/2024 17:10 EDT) Sodium 128(L) 136 - 145 mmol/L 01/08/2024 17:28 EDT [facility] Potassium 4.3 3.5 - 5.0 mmol/L 01/08/2024 17:28 [facility] Chloride 102 96 - 110 mmol/L 01/08/2024 17:28 [facility] CO2 Total 23 22 - 32 mmol/L 01/08/2024 17:28 [facility] Glucose 145(H) 70 - 99 mg/dl 01/08/2024 17:28 [facility] BUN 19 10 - 26 mg/dL 01/08/2024 17:28 [facility] Creatinine 0.68 0.52 - 1.04 mg/dL 01/08/2024 17:28 [facility] eGFR 98 >60 mL/min/1.7 3m2 01/08/2024 17:28 [facility] Total Protein 4.9(L) 6.3 - 8.2 g/dL 01/08/2024 17:28 [facility] Albumin 2.4(L) 3.4 - 4.9 g/dL 01/08/2024 17:28 [facility] Alkaline Phosphatase 368(H) 38 - 126 U/L 01/08/2024 17:28 [facility] AST 41 15 - 46 U/L 01/08/2024 17:28 [facility] ALT 39(H) <35 U/L 01/08/2024 17:28 [facility] Bilirubin, Total 1.3 <1.4 mg/dL 01/08/20 17:28 EDT [facility] Calcium 7.9(L) 8.5 - 10.5 mg/dL 01/08/2024 17:28 [facility] Albumin/Globulin Ratio 1.0 1.0 - 2.5 01/08/2024 17:28 T [facility] Anion Gap 3(L) 5 - 14 mmol/L 01/08/2024 17:28 T [facility] Blood VENOUS BLOOD / Unknown Venipuncture / Unknown 01/08/2024 17:10 EDT 01/08/2024 17:12 EDT Trinh Alcocer PA-C CHEMISTRY & BLOOD GA S ORDERABLES Performing Organization Address City/State/[facility] Co de Phone Number [facility] [address], [place] [phone] * (ABNORMAL) COMPLETE BLOOD COUNT AND DIFFERENTIAL (01/08/2024 17:10 EDT) WBC 7.78 4.00 - 12.40 K/cmm 01/08/2024 17:36 [facility] RBC 2.23(L) 3.86 - 5.04 M/cmm 01/08/2024 17:36 [facility] Hemoglobin 7.9(L) 11.6 - 15.2 g/dL 01/08/2024 17:36 [facility] HCT 23.6(L) 34.9 - 44.4 % 01/08/2024 17:36 [facility] MCV 106(H) 81 - 98 fL 01/08/2024 17:36 [facility] MCH 35.4(H) 26.7 - 33.3 pg 01/08/2024 17:36 [facility] MCHC 33.5 32.1 - 35.9 g/dL 01/08/2024 17:36 [facility] RDW-CV 24.2(H) <14.7 % 01/08/2024 17:36 [facility] RDW-SD 93.9(H) <50.4 fl 01/08/2024 17:36 [facility] PLT 269 141 - 377 K/cmm 01/08/2024 17:36 [facility] MPV 11.0 9.5 - 12.7 fL 01/08/2024 17:36 [facility] % Neutrophils 79.2 % 01/08/2024 17:36 [facility] % Lymphocytes 7.3 % 01/08/2024 17:36 [facility] % Monocytes 11.2 % 01/08/2024 17:36 [facility] % Eosinophils 0.5 % 01/08/2024 17:36 [facility] % Basophils 0.3 % 01/08/2024 17:36 [facility] % Immature Grans 1.5 % 01/08/20 17:36 [facility] Absolute Neutrophils 6.16 2.20 - 8.85 K/cmm 01/08/2024 17:36 [facility] Absolute Lymphocytes 0.57(L) 1.09 - 3.30 K/cmm 01/08/2024 17:36 [facility] Absolute Monocytes 0.87(H) 0.10 - 0.80 K/cmm 01/08/2024 17:36 [facility] Absolute Eosinophils 0.04 0.03 - 0.61 K/cmm 01/08/2024 17:36 [facility] ABS Basophils 0.02 0.01 - 0.11 K/cmm 01/08/2024 17:36 [facility] Absolute Immature Grans 0.12(H) 0.00 - 0.06 K/cmm 01/08/2024 17:36 [facility] Type of Differential: Auto 01/08/2024 17:36 [facility] Blood VENOUS BLOOD / Unknown Venipuncture / Unknown 01/08/2024 17:10 EDT 01/08/2024 17:12 EDT Trinh Alcocer PA-C PACKAGES & DNA PROBE ORDERABLES [facility] [address] [place] [address] * XR CHEST PORTABLE 1 VIEW (01/08/2024 16:57 EDT) Anatomical Region Laterality Modality Computed Radiogr aphy 01/08/2024 17:0 5 EDT Impressions 01/08/2024 17:05 EDT Interposed areas of atelectasis and airspace disease similar as on the comparison CT 3 days prior concerning for bilateral pneumonia. Differential consideration would include drug reaction. [id number] Narrative 01/08/2024 17:05 EDT XR CHEST PORTABLE [...] No concerning bone lesions. Resulting Agency Comment [id number] Procedure Note Sonny Georges MD - 01/08/2024 [...] bilateral pneumonia.Differential consideration would include drug reaction. [id number] Trinh Alcocer PA-C IMG DIAGNOSTIC IMAGI NG ORDERABLES * EKG 12-LEAD (01/08/2024 16:54 EDT) 01/08/2024 16:5 4 EDT Narrative [facility] EKG - 01/09/2024 12:51 EDT ?[facility] Emergency ? Test Date: ?2024-01-08 Pat Name: ? SUNSHINE LUISWEST ? Department: ?? ED ? Room: ? Gender: ? Female ? Skilled Helper: ?? : ?1960 ? Requested By: CASA Bueno Order Number: [id number] ? Reading : ?? [facility] [place] ? Measurements Intervals ?Marshall ? Rate: ? 108 ?P: ?17 [place]: ? 140 ?QRS: ?2 QRSD: ? 110 [...] Note Efrain Hill MD - 01/09/2024 [facility] Emergency Test Date: 2024-01-08 Pat Name: SUNSHINE SUBRAMANIAN Department: ED Room: Gender: Female Skilled Helper: : 1960 Requested By: CASA Bueno Order Number: [id number] Larisa MD: [facility] Measurements Intervals Marshall Rate: 108 P: 17 [place]: 140 QRS: 2 QRSD: 110 T: 20 QT: 326 QTc: 439 Interpretive Statements SINUS TACHYCARDIA NONSPECIFIC ST ELEVATION ABNORMAL RHYTHM ECG Automated Interpretation. Provider Interpretation to follow. No previous ECG available for comparison I reviewed the tracing and have either agreed or edited the findings inthis report. Electronically Signed On 01-09-2024 12:51:39 EDT by [facility] [place]. Micky Mcallister MD CARDIAC ECG [facility] EKG documented in this encounter Visit Diagnoses Diagnosis Shortness of breath- Primary Shortness of breath Anemia, unspecified type Other ascites Acute hypoxic respiratory failure (HCC-CMS) Malignant neoplasm of female breast, unspecified estrogen receptor status, unspecified laterality, unspecified site of breast (HCC-CMS) [C50.919] Metastatic malignant neoplasm, unspecified site (HCC-CMS) [C79.9] Abnormal CT of the chest [R93.89] Nonspecific (abnormal) findings on radiological and other examination of other intrathoracic organs Primary malignant neoplasm of breast with metastasis (HCC-CMS) Encounter for palliative care Malignant ascites Ground glass opacity present on imaging of lung Leukocytosis, unspecified type 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, unspecified laterality, 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HCC-CMS) Palliative care by specialist Goals of care, counseling/discussion Other specified counseling 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, 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HCC-CMS) Malignant neoplasm of right female breast, unspecified estrogen receptor status, unspecified site of breast (HCC-CMS) Acute hypoxic respiratory failure (HCC-CMS) Anemia, unspecified type Abnormal CT of the chest Nonspecific (abnormal) findings on radiological and other examination of other intrathoracic organs Metastatic malignant neoplasm (HCC-CMS) Mild malnutrition (HCC) (HCC-CMS) Malnutrition of mild degree Ground glass opacity present on imaging of lung Leukocytosis Leukocytosis, unspecified 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 (HCC-CMS) Palliative care by specialist Goals of care, counseling/discussion Other specified counseling Other ascites Malignant neoplasm of female breast, unspecified estrogen receptor status, unspecified laterality, unspecified site of breast (HCC-CMS) [C50.919] Metastatic malignant neoplasm, unspecified site (HCC-CMS) [C79.9] documented in this encounter Admitting Diagnoses Diagnosis Acute hypoxic respiratory failure (HCC-CMS) Abnormal CT of the chest Nonspecific (abnormal) findings on radiological and other examination of other intrathoracic organs documented in this encounter Administered Medications Inactive Administered Medications - up to 3 most recent administrations Medication Order MAR Action Action Date Dose Rate Site acetaminophen (TYLENOL) tablet 500 mg 500 mg, oral, EVERY 6 HOURS PRN, Starting on Tue01/19/24 at 0834, Until Tue01/19/24 at 1819, Pain, Routine Given 01/19/2024 10:15 EDT 500 mg alteplase (CATHFLO ACTIVASE) injection 2 mg 2 mg, intercatheter, PRN, Starting on Tue01/13/24 at 2205, Until Tue01/19/24 at 1819, Line Care, Routine Given 01/13/2024 22:26 EDT 2 mg apixaban (ELIQUIS) tablet 5 mg 5 mg, oral, 2 TIMES DAILY, First dose on Tue01/08/24 at 2245, Until Discontinued, Routine Given 01/08/2024 22:46 EDT 5 mg apixaban (ELIQUIS) tablet 5 mg 5 mg, oral, 2 TIMES DAILY, First dose (after last modification) on Tue01/12/24 at 1115, Until Discontinued, Routine Given 01/19/2024 8:29 EDT 5 mg Given 01/18/2024 20:18 EDT 5 mg Given 01/18/2024 8:39 EDT 5 mg atovaquone (MEPRON) 750 mg/5 mL suspension 750 mg 750 mg, oral, 2 TIMES DAILY, 21 doses, First dose (after last modification) on Tue01/13/24 at 1200, Last dose on Tue01/23/24 at 0900, Routine Given 01/19/2024 8 :29 EDT 750 mg Given 01/18/2024 20:16 EDT 750 mg Given 01/18/2024 8:39 EDT 750 mg azithromycin (ZITHROMAX) tablet 500 mg 500 mg, oral, EVERY 24 HOURS, 3 doses, First dose (after last modification) on Tue01/08/24 at 2100, Last dose on Tue01/10/24 at 2100, Routine Given 01/08/2024 22:21 EDT 500 mg benzonatate (TESSALON) capsule 100 mg 100 mg, oral, 3 TIMES DAILY PRN, Starting on Tue01/09/24 at 0031, Until Tue01/19/24 at 1819, Cough, Routine Given 01/11/2024 20:32 EDT 100 mg Given 01/10/2024 20:36 EDT 100 mg Given 01/10/2024 8:54 EDT 100 mg blood thinner patient education booklet 1 Each 1 Each, other, Once (Without Time Specified), 1 dose, Starting on Tue01/08/24 at 2241, Until Tue01/19/24 at 1819, Routine cefepime (MAXIPIME) 2,000 mg in sodium chloride (NS MBP) 50 mL IVPB 2,000 mg, intravenous, Administer over 30 Minutes, EVERY 8 HOURS, 6 doses, First dose on Tue01/16/24 at 0545, Last dose on Tue01/18/24 at 0200, Type of Therapy: Empiric, Suspected Indication (Select all that apply): Other, Other Indication: immunosuppressed, fever, Controlled Antibiotic Has ID Approved? No, Please select the appropriate choice: After 5 pm, Before 8 am, call for approval at 8 am, Routine Given 01/17/2024 10:00 EDT 2,000 mg Given 01/17/2024 2:59 EDT 2,000 mg Given 01/16/2024 19:12 EDT 2,000 mg cefepime (MAXIPIME) 2,000 mg in sodium chloride (NS MBP) 50 mL IVPB 2,000 mg, intravenous, Administer over 30 Minutes, EVERY 12 HOURS, 2 doses, First dose (after last modification) on Tue01/17/24 at 2100, Last dose on Tue01/18/24 at 0900, Type of Therapy: Empiric, Suspected Indication (Select all that apply): Other, Other Indication: immunosuppressed, fever, Controlled Antibiotic Has ID Approved? No, Please select the appropriate choice: After 5 pm, Before 8 am, call for approval at 8 am, Routine Given 01/18/2024 8:39 EDT 2,000 mg Given 01/17/2024 20:16 EDT 2,000 mg cefTRIAXone (ROCEPHIN) 1,000 mg in sodium chloride (NS MBP) 50 mL IVPB 1,000 mg, intravenous, Administer over 30 Minutes, EVERY 24 HOURS, 5 doses, First dose on Tue01/08/24 at 2100, Last dose on Tue01/12/24 at 2100, Type of Therapy: Empiric, Suspected Indication (Select all that apply): Community acquired pneumonia, ID Consult: No, Routine Given 01/08/2024 22:21 EDT 1,000 mg cyclobenzaprine (FLEXERIL) tablet 10 mg 10 mg, oral, 2 TIMES DAILY PRN, Starting on Tue01/16/24 at 1623, Until Tue01/19/24 at 1819, Muscle Spasms, Routine Given 01/18/2024 17:08 EDT 10 mg Given 01/16/2024 19:26 EDT 10 mg cyclobenzaprine (FLEXERIL) tablet 5 mg 5 mg, oral, 2 TIMES DAILY PRN, Starting on Tue01/08/24 at 2006, Until Tue01/16/24 at 1436, Muscle Spasms, Routine Given 01/15/2024 21:39 EDT 5 mg Given 01/14/2024 21:12 EDT 5 mg Given 01/14/2024 14:00 EDT 5 mg dextromethorphan-guaiFENesin (ROBITUSSIN DM) 10-100 mg/5 mL syrup 10 mL 10 mL, oral, EVERY 4 HOURS PRN, Starting on Tue01/09/24 at 0032, Until Tue01/19/24 at 1819, Cough, Routine Given 01/10/2024 8:54 EDT 10 mL Given 01/09/2024 10:48 EDT 10 mL Given 01/09/2024 6:23 EDT 10 mL furosemide (LASIX) tablet 10 mg 10 mg, oral, DAILY, First dose on Tue01/19/24 at 0900, Until Discontinued, Routine Given 01/19/2024 8:29 EDT 10 mg furosemide (LASIX) tablet 20 mg 20 mg, oral, DAILY, First dose on Tue01/09/24 at 0900, Until Discontinued, Routine Given 01/09/2024 10:46 EDT 20 mg furosemide (LASIX) tablet 20 mg 20 mg, oral, DAILY, First dose (after last modification) on Tue01/16/24 at 0900, Until Discontinued, Routine Given 01/16/2024 8:47 EDT 20 mg furosemide (LASIX) tablet 40 mg 40 mg, oral, DAILY, First dose (after last modification) on Tue01/10/24 at 0900, Until Discontinued, Routine Given 01/10/2024 8:35 EDT 40 mg furosemide (LASIX) tablet 40 mg 40 mg, oral, DAILY, First dose on Tue01/12/24 at 1115, Until Discontinued, Routine Given 01/15/2024 9:46 EDT 40 mg Given 01/14/2024 8:32 EDT 40 mg Given 01/13/2024 8:17 EDT 40 mg gabapentin (NEURONTIN) capsule 300 mg 300 mg, oral, 2 TIMES DAILY (0800 & 1400), First dose on Tue01/09/24 at 0800, Until Discontinued, Routine Given 01/19/2024 13:11 EDT 300 mg Given 01/19/2024 8:29 EDT 300 mg Given 01/18/2024 13:48 EDT 300 mg gabapentin (NEURONTIN) capsule 600 mg 600 mg, oral, AT BEDTIME, First dose on Tue01/08/24 at 2245, Until Discontinued, Routine Given 01/18/2024 20:16 EDT 6 00 mg Given 01/17/2024 20:12 EDT 600 mg Given 01/16/2024 20:35 EDT 600 mg HYDROmorphone (DILAUDID) tablet 1 mg 1 mg, oral, AT BEDTIME PRN, Starting on Tue01/18/24 at 1104, Until Tue01/19/24 at 0919, Pain, muscle cramps, Routine Given 01/18/2024 20:16 EDT 1 mg HYDROmorphone (DILAUDID) tablet 2 mg 2 mg, oral, AT BEDTIME PRN, Starting on Tue01/19/24 at 0919, Until Tue01/19/24 at 1819, Pain, muscle cramps, Routine HYDROmorphone (PF) (DILAUDID) 0.5 mg/0.5 mL syringe 0.5 mg 0.5 mg, intravenous, EVERY 4 HOURS PRN, 3 doses, Starting on Tue01/10/24 at 2158, Until Tue01/13/24 at 2051, Pain, Routine Given 01/13/2024 20:51 EDT 0.5 mg Given 01/13/2024 1:11 EDT 0.5 mg Given 01/10/2024 22:24 EDT 0.5 mg HYDROmorphone (PF) (DILAUDID) 0.5 mg/0.5 mL syringe 0.5 mg 0.5 mg, intravenous, NOW X1, 1 dose, On Tue01/16/24 at 2130, Routine Given 01/16/2024 21:24 EDT 0.5 mg HYDROmorphone (PF) (DILAUDID) 0.5 mg/0.5 mL syringe 0.5 mg 0.5 mg, intravenous, AT BEDTIME PRN, Starting on Tue01/17/24 at 0853, Until Tue01/18/24 at 1105, Severe Pain 7-10, Routine Given 01/17/2024 21:43 EDT 0.5 mg ipratropium-albuteroL (DUONEB) 0.5 mg-3 mg(2.5 mg base)/3 mL nebulizer solution 3 mL 3 mL, nebulization, 4 TIMES DAILY, First dose (after last modification) on Tue01/09/24 at 1700, Until Discontinued, Routine Given 01/09/2024 22:00 EDT 3 mL Given 01/09/2024 16:52 EDT 3 mL ipratropium-albuteroL (DUONEB) 0.5 mg-3 mg(2.5 mg base)/3 mL nebulizer solution 3 mL 3 mL, nebulization, EVERY 6 HOURS, First dose (after last modification) on Tue01/10/24 at 1015, Until Discontinued, Routine Given 01/11/2024 18:12 EDT 3 mL Given 01/11/2024 11:59 EDT 3 mL Given 01/10/2024 16:13 EDT 3 mL ipratropium-albuteroL (DUONEB) 0.5 mg-3 mg(2.5 mg base)/3 mL nebulizer solution 3 mL 3 mL, nebulization, 4 TIMES DAILY, First dose (after last modification) on Tue01/12/24 at 0800, Until Discontinued, Routine Given 01/16/2024 20:20 EDT 3 mL Given 01/16/2024 16:12 EDT 3 mL Given 01/16/2024 11:50 EDT 3 mL ipratropium-albuteroL (DUONEB) 0.5 mg-3 mg(2.5 mg base)/3 mL nebulizer solution 3 mL 3 mL, nebulization, EVERY 4 HOURS PRN, Starting on Tue01/16/24 at 2100, Until Tue01/19/24 at 1819, Wheezing, Routine ipratropium-albuteroL (DUONEB) 0.5 mg-3 mg(2.5 mg base)/3 mL nebulizer solution 1 dose, Starting on Tue01/12/24 at 0901, Until Tue01/12/24 at 202 iron dextran (INFED) 1,300 mg in sodium chloride (NS) 0.9 % 250 mL IVPB 1,300 mg, intravenous, Administer over 180 Minutes, NOW X1, 1 dose, On Tue01/11/24 at 1130, Routine New Bag 01/11/2024 11:48 EDT 1,300 mg iron dextran (INFED) 25 mg in sodium chloride (NS) 0.9 % 50 mL IVPB 25 mg, intravenous, Administer over 15 Minutes, NOW X1, 1 dose, On Tue01/11/24 at 0745, Routine New Bag 01/11/2024 10:17 EDT 25 mg multivitamin (NEPHROVITE) 0.8 mg tablet 1 Tablet 1 Tablet, oral, AT BEDTIME, First dose on Tue01/11/24 at 2100, Until Discontinued, Routine Given 01/18/2024 20:16 EDT 1 Tablet Given 01/17/2024 20:12 EDT 1 Tablet Given 01/16/2024 20:35 EDT 1 Tablet naloxone (NARCAN) injection 0.1 mg 0.1 mg, intravenous, PRN, Starting on Tue01/16/24 at 2101, Until Tue01/19/24 at 1819, Opioid Reversal, Routine nystatin (MYCOSTATIN) suspension 500,000 Units 500,000 Units, oral, 4 TIMES DAILY, 28 doses, First dose on Tue01/13/24 at 2100, Last dose on Tue01/20/24 at 1700, Routine Given 01/19/2024 10:15 ED T 500,000 Units Given 01/18/2024 20:16 EDT 500,000 Units Given 01/18/2024 17:57 EDT 500,000 Units pantoprazole (PROTONIX) tablet 40 mg 40 mg, oral, DAILY, First dose on Tue01/09/24 at 0900, Until Discontinued Given 01/19/2024 8:30 EDT 40 mg Given 01/18/2024 8:39 EDT 40 mg Given 01/17/2024 10:00 EDT 40 mg predniSONE (DELTASONE) tablet 20 mg 20 mg, oral, DAILY, 10 doses, First dose (after last modification) on Tue01/22/24 at 0900, Last dose on Tue01/31/24 at 0900, Routine predniSONE (DELTASONE) tablet 40 mg 40 mg, oral, DAILY, 7 doses, First dose on Tue01/15/24 at 0900, Last dose on Tue01/21/24 at 0900, Routine Given 01/17/2024 10:00 EDT 40 mg Given 01/16/2024 8:47 EDT 40 mg Given 01/15/2024 9:44 EDT 40 mg predniSONE (DELTASONE) tablet 40 mg 40 mg, oral, DAILY, 4 doses, First dose (after last modification) on Tue01/18/24 at 0900, Last dose on Tue01/21/24 at 0900, Routine Given 01/19/2024 8:29 EDT 40 mg Given 01/18/2024 8:38 EDT 40 mg predniSONE (DELTASONE) tablet 50 mg 50 mg, oral, DAILY, First dose on Tue01/09/24 at 0900, Until Discontinued, Routine Given 01/13/2024 8:18 EDT 50 mg Given 01/12/2024 8:43 EDT 50 mg Given 01/11/2024 8:23 EDT 50 mg predniSONE (DELTASONE) tablet 50 mg 50 mg, oral, DAILY, 2 doses, First dose (after last modification) on Tue01/14/24 at 0900, Last dose on Tue01/15/24 at 0900, Routine Given 01/14/2024 8:32 EDT 50 mg spironolactone (ALDACTONE) tablet 100 mg 100 mg, oral, DAILY, First dose on Tue01/09/24 at 0900, Until Discontinued, Routine Given 01/10/2024 8:36 EDT 100 mg Given 01/09/2024 10:48 EDT 100 mg spironolactone (ALDACTONE) tablet 100 mg 100 mg, oral, DAILY, First dose (after last modification) on Michelle 01/12/24 at 1115, Until Discontinued, Routine Given 01/17/2024 10:00 EDT 100 mg Given 01/16/2024 8:47 EDT 100 mg Given 01/15/2024 9:44 EDT 100 mg spironolactone (ALDACTONE) tablet 100 mg 100 mg, oral, DAILY, First dose on Tue01/19/24 at 0900, Until Discontinued, Routine Given 01/19/2024 8:29 EDT 100 mg valACYclovir (VALTREX) tablet 500 mg 500 mg, oral, DAILY, 13 doses, First dose on Tue01/09/24 at 0900, Last dose on Tue01/21/24 at 0900, Routine Given 01/19/2024 8:30 EDT 500 mg Given 01/18/2024 8:39 EDT 500 mg Given 01/17/2024 10:00 EDT 500 mg venlafaxine (EFFEXOR-XR) XR capsule 75 mg 75 mg, oral, DAILY, First dose on Tue01/09/24 at 0900, Until Discontinued, Routine Given 01/19/2024 8:29 EDT 75 mg Given 01/18/2024 8:39 EDT 75 mg Given 01/17/2024 10:00 EDT 75 mg zolpidem (AMBIEN) tablet 5 mg 5 mg, oral, AT BEDTIME PRN, Starting on Tue01/11/24 at 1821, Until Tue01/19/24 at 1105, Sleep, Routine Given 01/15/2024 21:39 EDT 5 mg Given 01/14/2024 21:12 EDT 5 mg documented in this encounter Discontinued Medications Medication Sig Discontinue Reason Start Date End Da te gabapentin (NEURONTIN) 100 mg capsule Take 2 Capsules by mouth 3 times daily for 30 days. 12/14/2023 01/18/2024 dapsone 100 mg tablet Take 1 Tablet by mouth daily for 30 days. 01/12/2024 01/19/2024 senna (SENOKOT) 8.6 mg tablet Take 2 Tablets by mouth daily for 30 days. 12/14/2023 01/19/2024 spironolactone (ALDACTONE) 50 mg tablet Take 1 Tablet by mouth daily. 11/30/2023 01/19/2024 morphine (MS IR) 15 mg tablet Take 0.5 Tablets by mouth every 4 hours as needed for Pain. Daily Max: 45 mg 12/14/2023 01/19/2024 predniSONE (DELTASONE) 10 mg tabletIndications:Prima ry malignant neoplasm of breast with metastasis (HCC-CMS) Take 1 Tablet by mouth daily with breakfast. 12/20/2023 01/19/2024 cyclobenzaprine (FLEXERIL) 5 mg tablet Take 1 Tablet by mouth 2 times daily as needed. 12/20/2023 01/19/2024 documented as of this encounter Active and Recently Administered Medications Times are shown in EDT. Scheduled Medication Order 01/17/2024 01/18/2024 01/19/2024 apixaban (ELIQUIS) tablet 5 mg 5 mg, oral, 2 TIMES DAILY, First dose (after last modification) on Tue01/12/24 at 1115, Until Discontinued, Routine 1000 (Given - Provider: Criselda Cisneros, SHELLEY)2011 (Given - Provider: Radha Sexton RN) 0839 (Given - Provider: Aruna Law, SHELLEY)2017 (Given - Provider: Radha Sexton, SHELLEY) 08 (Given - Provider: Jaren Soto, SHELLEY) atovaquone (MEPRON) 750 mg/5 mL suspension 750 mg 750 mg, oral, 2 TIMES DAILY, 21 doses, First dose (after last modification) on Tue01/13/24 at 1200, Last dose on Tue01/23/24 at 0900, Routine 1000 (Given - Provider: Criselda Cisneros RN)2011 (Given - Provider: Radha Sexton, SHELLEY) 0839 (Given - Provider: Aruna Law, SHELLEY)2015 (Given - Provider: Radha Sexton RN) 08 (Given - Provider: Jaren Soto, SHELLEY) blood thinner patient education booklet 1 Each 1 Each, other, Once (Without Time Specified), 1 dose, Starting on 01/08/24 at 2241, Until Michelle 01/19/24 at 1819, Routine cefepime (MAXIPIME) 2,000 mg in sodium chloride (NS MBP) 50 mL IVPB (CANCELED) 2,000 mg, intravenous, Administer over 30 Minutes, EVERY 8 HOURS, 6 doses, First dose on Tue01/16/24 at 0545, Last dose on Tue01/18/24 at 0200, Type of Therapy: Empiric, Suspected Indication (Select all that apply): Other, Other Indication: immunosuppressed, fever, Controlled Antibiotic Has ID Approved? No, Please select the appropriate choice: After 5 pm, Before 8 am, call for approval at 8 am, Routine 0259 (Given - Provider: Sandra Rodriguez RN)1000 (Given - Provider: Criselda Cisneros RN) cefepime (MAXIPIME) 2,000 mg in sodium chloride (NS MBP) 50 mL IVPB (COMPLETED) 2,000 mg, intravenous, Administer over 30 Minutes, EVERY 12 HOURS, 2 doses, First dose (after last modification) on Tue01/17/24 at 2100, Last dose on Tue01/18/24 at 0900, Type of Therapy: Empiric, Suspected Indication (Select all that apply): Other, Other Indication: immunosuppressed, fever, Controlled Antibiotic Has ID Approved? No, Please select the appropriate choice: After 5 pm, Before 8 am, call for approval at 8 am, Routine 2015 (Given - Provider: Radha Sexton RN) 0839 (Given - Provider: Aruna Law RN) furosemide (LASIX) tablet 10 mg 10 mg, oral, DAILY, First dose on Tue01/19/24 at 0900, Until Discontinued, Routine 0829 (Given - Provider: Jaren Soto, SHELLEY) gabapentin (NEURONTIN) capsule 300 mg 300 mg, oral, 2 TIMES DAILY (0800 & 1400), First dose on Tue01/09/24 at 0800, Until Discontinued, Routine 0900 (Given - Provider: Criselda Cisneros RN)1346 (Given - Provider: Criselda Cisneros RN) 0839 (Given - Provider: Aruna Law RN)1348 (Given - Provider: Edwina Kimball RN) 0829 (Given - Provider: Jaren Soto, SHELLEY)1311 (Given - Provider: Jaren Soto, RN) gabapentin (NEURONTIN) capsule 600 mg 600 mg, oral, AT BEDTIME, First dose on Tue01/08/24 at 2245, Until Discontinued, Routine 2011 (Given - Provider: Radha Sexton, SHELLEY) 2015 (Given - Provider: Radha Sexton RN) multivitamin (NEPHROVITE) 0.8 mg tablet 1 Tablet 1 Tablet, oral, AT BEDTIME, First dose on 7/31/24 at 2100, Until Discontinued, Routine 2011 (Given - Provider: Radha Sexton, SHELLEY) 2015 (Given - Provider: Radha Sexton RN) nystatin (MYCOSTATIN) suspension 500,000 Units 500,000 Units, oral, 4 TIMES DAILY, 28 doses, First dose on Tue01/13/24 at 2100, Last dose on Tue01/20/24 at 1700, Routine 0900 (Given - Provider: Criselda Cisneros RN)1300 (Given - Provider: Criselda Cisneros RN)1841 (Given - Provider: Richard Forde RN)2011 (Given - Provider: Radha Sexton RN) 0844 (Given - Provider: Aruna Law, SHELLEY)1348 (Given - Provider: Edwina Kimball RN)1757 (Given - Provider: Aruna Law RN)2015 (Given - Provider: Radha Sexton RN) 1015 (Given - Provider: Jaren Soto RN)1200 (Canceled Entry - Provider: Batch Job User Admin - Comment: Automatically canceled at discontinue of medication order)1700 (Canceled Entry - Provider: Batch Job User Admin - Comment: Automatically canceled at discontinue of medication order) pantoprazole (PROTONIX) tablet 40 mg 40 mg, oral, DAILY, First dose on Tue01/09/24 at 0900, Until Discontinued 1000 (Given - Provider: Criselda Cisneros RN) 0839 (Given - Provider: Aruna Law RN) 0830 (Given - Provider: Jaren Soto RN) predniSONE (DELTASONE) tablet 20 mg(Linked Group 1) 20 mg, oral, DAILY, 10 doses, First dose (after last modification) on 01/22/24 at 0900, Last dose on Tue01/31/24 at 0900, Routine predniSONE (DELTASONE) tablet 40 mg (CANCELED) 40 mg, oral, DAILY, 7 doses, First dose on 01/15/24 at 0900, Last dose on 01/21/24 at 0900, Routine 1000 (Given - Provider: Criselda Cisneros RN) predniSONE (DELTASONE) tablet 40 mg(Linked Group 1) 40 mg, oral, DAILY, 4 doses, First dose (after last modification) on Tue01/18/24 at 0900, Last dose on Tue01/21/24 at 0900, Routine 0838 (Given - Provider: Aruna Law RN) 0829 (Given - Provider: Jaren Soto, SHELLEY) spironolactone (ALDACTONE) tablet 100 mg (CANCELED) 100 mg, oral, DAILY, First dose (after last modification) on Tue01/12/24 at 1115, Until Discontinued, Routine 1000 (Given - Provider: Criselda Cisneros RN) spironolactone (ALDACTONE) tablet 100 mg 100 mg, oral, DAILY, First dose on Tue01/19/24 at 0900, Until Discontinued, Routine 0829 (Given - Provider: Jaren Soto, SHELLEY) valACYclovir (VALTREX) tablet 500 mg 500 mg, oral, DAILY, 13 doses, First dose on Tue01/09/24 at 0900, Last dose on Tue01/21/24 at 0900, Routine 1000 (Given - Provider: Criselda Cisneros RN) 0839 (Given - Provider: Aruna Law RN) 0830 (Given - Provider: Jaren Soto RN) venlafaxine (EFFEXOR-XR) XR capsule 75 mg 75 mg, oral, DAILY, First dose on Tue01/09/24 at 0900, Until Discontinued, Routine 1000 (Given - Provider: Criselda Cisneros RN) 0839 (Given - Provider: Aruna Law RN) 0829 (Given - Provider: Jaren Soto RN) PRN Medication Order 01/17/2024 01/18/2024 01/19/2024 acetaminophen (TYLENOL) tablet 500 mg 500 mg, oral, EVERY 6 HOURS PRN, Starting on Tue01/19/24 at 0834, Until Tue01/19/24 at 1819, Pain, Routine 1015 (Given - Provider: Jaren Soto, SHELLEY) alteplase (CATHFLO ACTIVASE) injection 2 mg 2 mg, intercatheter, PRN, Starting on Tue01/13/24 at 2205, Until Tue01/19/24 at 1819, Line Care, Routine benzonatate (TESSALON) capsule 100 mg 100 mg, oral, 3 TIMES DAILY PRN, Starting on Tue01/09/24 at 0031, Until Tue01/19/24 at 1819, Cough, Routine cyclobenzaprine (FLEXERIL) tablet 10 mg 10 mg, oral, 2 TIMES DAILY PRN, Starting on Tue01/16/24 at 1623, Until Tue01/19/24 at 181, Muscle Spasms, Routine 1708 (Given - Provider: Mira Abdi RN) dextromethorphan-guaiF ENesin (ROBITUSSIN DM) 10-100 mg/5 mL syrup 10 mL 10 mL, oral, EVERY 4 HOURS PRN, Starting on Tue01/09/24 at 0032, Until Tue01/19/24 at 181, Cough, Routine HYDROmorphone (DILAUDID) tablet 1 mg (CANCELED) 1 mg, oral, AT BEDTIME PRN, Starting on Tue01/18/24 at 1104, Until Tue01/19/24 at 0919, Pain, muscle cramps, Routine 2015 (Given - Provider: Radha Sexton RN) HYDROmorphone (DILAUDID) tablet 2 mg 2 mg, oral, AT BEDTIME PRN, Starting on Tue01/19/24 at 0919, Until Tue01/19/24 at 181, Pain, muscle cramps, Routine HYDROmorphone (PF) (DILAUDID) 0.5 mg/0.5 mL syringe 0.5 mg (CANCELED) 0.5 mg, intravenous, AT BEDTIME PRN, Starting on Tue01/17/24 at 0853, Until Tue01/18/24 at 1105, Severe Pain 7-10, Routine 2143 (Given - Provider: Donya Mahmood RN) ipratropium-albuteroL (DUONEB) 0.5 mg-3 mg(2.5 mg base)/3 mL nebulizer solution 3 mL 3 mL, nebulization, EVERY 4 HOURS PRN, Starting on Tue01/16/24 at 2100, Until Tue01/19/24 at 181, Wheezing, Routine lidocaine (PF) 10 mg/mL (1 %) injection 2 mg 2 mg, intradermal, PRN, 4 doses, Starting on Tue01/08/24 at 2007, Until Tue01/19/24 at 181, peripheral intravenous catheter placement, Routine naloxone (NARCAN) injection 0.1 mg 0.1 mg, intravenous, PRN, Starting on 01/16/24 at 2101, Until Michelle 01/19/24 at 1819, Opioid Reversal, Routine Linked Groups Order Group 1: predniSONE (DELTASONE) tablet 40 mgJump to med 40 mg, oral, DAILY, 4 doses, First dose (after last modification) on Tue01/18/24 at 0900, Last dose on Tue01/21/24 at 0900, Routine Followed by predniSONE (DELTASONE) tablet 20 mgJump to med 20 mg, oral, DAILY, 10 doses, First dose (after last modification) on Tue01/22/24 at 0900, Last dose on Tue01/31/24 at 0900, Routine documented in this encounter Orders Medications Ordered That Vj ht Not Have Been Administered Count Last Ordered Date First Ordered Date HYDROmorphone (DILAUDID) tablet 2 mg 1 01/2024 amoxicillin (AMOXIL) capsule 500 mg 1 01/17 predniSONE (DELTASONE) tablet 20 mg 3 01/1601/13/2024 cyclobenzaprine (FLEXERIL) tablet 5-10 mg 1 01/16/2024 ipratropium-albuteroL (DUONE B) 0.5 mg-3 mg(2.5 mg base)/3 mL nebulizer solution 3 mL 3 01/16/2024 01/09/2024 naloxone (NARCAN) injection 0.1 mg 1 2023 predniSONE (DELTASONE) tablet 10 mg 2 01/1301/13/2024 predniSONE (DELTASONE) tablet 30 mg 2 01/1301/13/2024 atovaquone (MEPRON) 750 mg/5 mL suspension 1,500 mg 1 01/13/2024 predniSONE (DELTASONE) tablet 40 mg 1 01/12 apixaban (ELIQUIS) tablet 5 mg 1 01/12/2024 spironolactone (ALDACTONE) tablet 100 mg 1 01/12/2024 fentaNYL citrate (PF) injection 1 iron dextran (INFED) 1,300 m g in sodium chloride (NS) 0.9 % 250 mL IVPB 1 01/11/2024 midazolam (PF) (VERSED) injection 1 024 azithromycin (ZITHROMAX) tablet 250 mg 1 blood thinner patient educat ion booklet 1 Each 1 01/08/2024 lidocaine (PF) 10 mg/mL (1 % ) injection 2 mg 1 01/08/2024 Diet Count Last Ordered Date First Orde red Date DISCHARGE DIET 1 01/19/2024 Nursing Count Last Ordered Date First Orde red Date ACTIVITY INSTRUCTIONS 1 01/19/2024 BATHING INSTRUCTIONS 1 01/19/2024 DRIVING INSTRUCTIONS 1 01/19/2024 WOUND CARE INSTRUCTIONS 1 01/19/2024 VTE PHARMACOLOGIC PROPHYLAXI S CURRENTLY ORDERED OR ON ALTERNATIVE THER 1 01/08/2024 Consult Count Last Ordered Date First Orde red Date CONSULT PALLIATIVE CARE 1 01/17/2024 Respiratory Care Count Last Ordered Date First Ordered Date EVAL FOR HOME OXYGEN USE 2 01/17/202406/2023 IV Count Last Ordered Date First Orde red Date IV REQUEST 1 01/13/2024 Admission Count Last Ordered Date First Orde red Date ADMIT TO INPATIENT 1 01/08/2024 Transfer Count Last Ordered Date First Orde red Date ED BED REQUEST 1 01/08/2024 Discharge Count Last Ordered Date First Orde red Date DISCHARGE PATIENT 1 01/19/2024 Legal Count Last Ordered Date First Orde red Date MISCELLANEOUS DISCHARGE INSTRUCTIONS 1 01/2024 Equipment Count Last Ordered Date First Orde red Date GENERIC DME ORDER 1 01/19/2024 HOME OXYGEN 1 01/18/2024 documented in this encounter Additional Health Concerns Infection Onset Date Last Indicated Resolved Time R/O COVID-19 01/08/2024 01/08/2024 01/08/2024 18:2 6 EDT R/O COVID-19 01/16/2024 01/16/2024 01/16/2024 17:5 0 EDT documented as of this encounter Care Teams Health And Safety Instructor Relationship Specialty Start Date End Date Linda Blancas MD [facility] [address] [place] [address] PCP - General 01/06/11 Adolfo Carreno MD [address] [place] [address], Level 2 [place] [address] General Surgery 04/26/19 documented as of this encounter
--- OUTSIDE RECORDS SUMMARY | 2024-03-20 14:36 | XMS_ITS | Encounter Summary ---
Author Organization [facility] Address [address] [place] [address] Care Team Providers Care Discotheque Dancer Name Role Phone Linda Blancas MD Primary Care Provider [phone] Adolfo Carreno MD Unavailable [phone] Encounter Details Date Type Department Care Team (Late st Contact Info) Description 01/09/2024 Prep for Procedure [facility] Pulmonology & Critical Care - [facility] [address] [place], [place] [address]381 [place] [address] of the chest (Primary Dx) Social History Tobacco Use Types Packs/Day Years Used Date Smoking Tobacco: Never Passive Smoke Exposure: Never Smokeless Tobacco: Never Alcohol Use Standard Drinks/Week Comments Not Currently 1 (1 standard drink = 0.6 oz pur e alcohol) [facility] Utilities Answer Date Recorded In the past 12 months has e electric, gas, oil, or water [employer] threatened to shut off services in your [...] any time in the past 12 m [facility], were you homeless or living in a fci (including now)? No 01/10/2024 Interpersonal Safety Answer Date Record ed How often does anyone, joselyntsefanie aga family, hit, punch or physically hurt [...] Contact Info) Description 04/02/2024 10:30 EDT Appointment [facility] Interventional Radiology Unit [address] [place] [address] [phone] 04/02/2024 15:15 EDT Office Visit [facility] Surgical Oncology - [address] 178151 Adolfo Carreno MD [address] [place] [address] [phone] 04/05/2024 9:30 EDT Telemedicine [facility] Palliative [facility] Services [address] [place] [address] [phone] Chichi Woods MD [address] [place] [address] [phone] 04/11/2024 15:00 EDT Telemedicine [facility] Hematology & Oncology - [address] [phone] Alisson Carreon MD [address] [place] [address] [phone] 04/13/2024 13:30 EDT Appointment [facility] Hematology & Oncology - [address] [phone] 04/13/2024 14:00 EDT Appointment [facility] Hematology & Oncology [address] [phone] 04/16/2024 10:00 EST Telemedicine [facility] Palliative Care Services [address] [place] [address] [phone] Chichi Woods MD [address] [place] [address] [phone] 04/24/2024 9:00 EST Appointment [facility] Radiology CT Outpatient - [address] [id number] 04/24/2024 11:00 EST Appointment [facility] Breast Imaging - [facility] [address] [place] [address] 04/27/2024 12:00 EST Appointment [facility] Hematology & Oncology - [address] [phone] 05/02/2024 15:00 EST Telemedicine [facility] Hematology & Oncology [address] [phone] Alisson Carreon MD [address] [place] [address], Level [address] [place] [phone] 05/04/2024 10:15 EST Ancillary Procedure [facility] Cardiology - [place] [address] 05/04/2024 11:30 EST Appointment [facility] Hematology & Oncology - [address] [phone] 05/04/2024 12:00 EST Appointment [facility] Hematology & Oncology [address] [phone] 06/12/2024 13:00 EST Appointment [facility] Radiology CT - [address] [phone] documented as of this encounter Visit Diagnoses Diagnosis Abnormal CT of the chest- Primary Nonspecific (abnormal) findings on radiological and other examination of other intrathoracic organs documented in this encounter Orders Case Request Count Last Ordered Date First Orde red Date CASE REQUEST OPERATING ROOM 1 01/09/2024 documented in this encounter Care Teams Discotheque Dancer Relationship Specialty Start Date End Date Linda Blancas MD [facility] [address] [place] [address] PCP - General 01/06/11 Adolfo Carreno MD [address] [place] [address] 2 [place] [address] General Surgery 04/26/19 documented as of this encounter
--- OUTSIDE RECORDS SUMMARY | 2024-03-20 14:36 | XMS_ITS | Encounter Summary ---
Author Organization [facility] Address [address] [place] [address] Care Team Providers Care Armature Winder Repair Name Role Phone Linda Blancas MD Primary Care Provider [phone] Adolfo Carreno MD Unavailable [phone] Encounter Details Date Type Department Care Team (Late st Contact Info) Description 01/05/2024 13:53 EDT - 01/05/2024 23:59 EDT Hospital Encounter [facility] [address] [place] [address] Lab, [facility] Phlebotomy Other ascites Discharge Disposition: Home or Self Care Social History Tobacco Use Types Packs/Day Years Used Date Smoking Tobacco: Never Passive Smoke Exposure: Never Smokeless Tobacco: Never Alcohol Use Standard Drinks/Week Comments Not Currently 1 (1 standard drink = 0.6 oz pur e alcohol) [facility] Utilities Answer Date Recorded In the past 12 months has [employer], gas, oil, or water [employer] threatened to shut off services in your home? No 12/12/2023 Hunger Vital Sign Answer Date Recorded Within the past 12 months, y ou worried that your food would run out before you got the money to buy more. Never true 12/12/19 24 Within the past 12 months, t he food you bought just didn't last and you didn't have money to get more. Never true 12/12/2023 PRAPARE - Transportation Answer Date Re corded In the past 12 months, has l ack of transportation kept you from medical appointments or from getting medications? No 07/2023 In the past 12 months, has l ack of transportation kept you from meetings, work, or from getting things needed for daily living? No 12/13/2023 Housing Stability Vital Sign Answer Rubén e Recorded In the last 12 months, was t here a time when you were not able to pay the mortgage or rent on time? No 12/13/2023 In the past 12 months, how m any times have you moved where you were living? 0 12/13/2023 At any time in the past 12 m [facility], were you homeless or living in a residential (including now)? No 12/13/2023 Interpersonal Safety Answer Date Record ed How often does anyone, joselynstefanie aga family, hit, punch or physically hurt you? 12/12/2023 How often does anyone, manuela aga family, insult, scream, curse or threaten to hurt you? 12/12/2023 Sex and Gender Information Value Date Recorded [...] difficulty seeing, even when wearing glasses? No 12/12/2023 Do you have serious difficul ty walking [...] tablet Take 1 Tablet by mouth daily. MULTIVITS W-CA,FE,OTHER MIN (WOMEN'S DAILY FORMULA ORAL) Take by mouth daily. omeprazole (PRILOSEC) 40 mg capsuleIndications:Gas troesophageal reflux disease, unspecified whether esophagitis present Take 1 Capsule by mouth 2 times daily. 60 Capsule 11 11/23/2023 RED YEAST RICE EXTRACT ORAL Take 1,200 mg by mouth daily. 600mg 2x a day valACYclovir (VALTREX) 500 mg tablet Take 1 Tab by mouth daily. 90 Tab 3 08/16/2012 apixaban (ELIQUIS) 5 mg tabletIndications:Prim hugo malignant neoplasm of breast with metastasis (HCC-CMS) Take 1 Tablet by mouth 2 times daily. 60 Tablet 11 12/07/2023 03/13/2024 cyclobenzaprine (FLEXERIL) 5 mg tablet Take 1 Tablet by mouth 2 times daily as needed. 12/20/2023 01/19/2024 dexAMETHasone (DECADRON) 4 mg tabletIndications:Prim hugo malignant neoplasm of breast with metastasis (HCC-CMS) Take 2 Tablets by mouth daily. Take on days 2 and 3 after chemotherapy. 12 Tablet 5 12/26/2023 01/31/2024 furosemide (LASIX) 20 mg tablet Take 1 Tablet by mouth daily. 30 Tablet 1 11/30/2023 01/26/2024 gabapentin (NEURONTIN) 100 mg capsule Take 2 Capsules by mouth 3 times daily for 30 days. 180 Capsule 12/14/2023 01/18/2024 morphine (MS IR) 15 mg tablet Take 0.5 Tablets by mouth every 4 hours as needed for Pain. Daily Max: 45 mg 30 Tablet 12/14/2023 01/19/2024 polyethylene glycol 3350 (MIRALAX) 17 gram packet Take 17 g by mouth daily as needed for up to 30 days for Constipation. 30 Each 12/14/2023 01/13/2024 predniSONE (DELTASONE) 10 mg tabletIndications:Prim hugo malignant neoplasm of breast with metastasis (HCC-CMS) Take 1 Tablet by mouth daily with breakfast. 30 Tablet 11 12/20/2023 01/19/2024 prochlorperazine (COMPAZINE) 10 mg tabletIndications:Prim hugo malignant neoplasm of breast with metastasis (HCC-CMS) Take 1 Tablet by mouth every 6 hours as needed for Nausea. 30 Tablet 5 10/17/2023 02/15/2024 senna (SENOKOT) 8.6 mg tablet Take 2 Tablets by mouth daily for 30 days. 60 Tablet 12/14/2023 01/19/2024 spironolactone (ALDACTONE) 50 mg tablet Take 1 Tablet by mouth daily. 30 Tablet 1 11/30/2023 01/19/2024 venlafaxine (EFFEXOR-XR) 75 mg XR capsule Take 1 Capsule by mouth daily for 30 days. 30 Capsule 12/15/2023 01/06/2024 documented as of this encounter Discharge Disposition Disposition Code Departure Means Destination Home or Self Care documented in this encounter Plan of Treatment Upcoming Encounters Date Type Department Care Team (Late st Contact Info) Description 04/02/2024 10:30 EDT Appointment [facility] Interventional Radiology Unit [address] [place] [address] [phone] 04/02/2024 15:15 EDT Office Visit [facility] Surgical Oncology - [address] [phone] Adolfo Carreno MD [address] [place] [address] [phone] 04/05/2024 9:30 EDT Telemedicine [facility] - [facility] Palliative Care Services [address] [place] [address] [phone] Chichi Woods MD [address] [place] [address] [phone] 04/11/2024 15:00 EDT Telemedicine [facility] Hematology & Oncology - [address] [phone] Alisson Carreon MD [address] [place] [address] [phone] 04/13/2024 13:30 EDT Appointment [facility] Hematology & Oncology - [address] [phone] 04/13/2024 14:00 EDT Appointment [facility] Hematology & Oncology - [address] [address] 04/16/2024 10:00 EST Telemedicine [facility] - [facility] Palliative Care Services [address] [place] [address] [phone] Chichi Woods MD [address] [place] [address] [phone] 04/24/2024 9:00 EST Appointment [facility] Radiology CT Outpatient - [address] [address] 04/24/2024 11:00 EST Appointment [facility] Breast Imaging - [facility] [address] [phone] 04/27/2024 12:00 EST Appointment [facility] Hematology & Oncology [address] [address] 05/02/2024 15:00 EST Telemedicine [facility] Hematology & Oncology - [address] [address] Alisson Carreon MD [address] [place], [place] [address], Level 2 [place] [phone] 05/04/2024 10:15 EST Ancillary Procedure [facility] Cardiology [place] [place] [address] 05/04/2024 11:30 EST Appointment [facility] Hematology & Oncology - [address] [phone] 05/04/2024 12:00 EST Appointment [facility] Hematology & Oncology - [address] [phone] 06/12/2024 13:00 EST Appointment [facility] Radiology CT - [facility] [address] [place], [place] [phone] documented as of this encounter Procedures Procedure Name Priority Date/Time Associated Diagnosis Comments BASIC METABOLIC PANEL (BMP) Routine 01/05/2024 14:25 EDT Other ascites documented in this encounter Results * (ABNORMAL) BASIC METABOLIC PANEL (BMP) (01/05/2024 14:25 EDT) Sodium 126(L) 136 - 145 mmol/L 01/05/2024 15:06 [facility] Potassium 3.7 3.5 - 5.1 mmol/L 01/05/2024 15:06 [facility] Chloride 95(L) 96 - 107 mmol/L 01/05/2024 15:06 [facility] CO2 Total 26 21 - 32 mmol/L 01/05/2024 15:06 [facility] Anion Gap 5 5 - 14 mmol/L 01/05/2024 15:06 [facility] Glucose 127(H) 70 - 99 mg/dl 01/05/2024 15:06 [facility] Calcium 6.9(L) 8.5 - 10.1 mg/dL 01/05/2024 15:06 [facility] BUN 15 7 - 25 mg/dL 01/05/2024 15:06 [facility] Creatinine 0.82 0.55 - 1.02 mg/dL 01/05/2024 15:06 [facility] eGFR 81 >60 mL/min/1.73 m2 01/05/2024 15:06 [facility] Blood VENOUS BLOOD / Unknown Venipuncture / Unknown 01/05/2024 14:25 EDT 01/05/2024 14:26 EDT Hugo Vergara MD PhD CHEMISTRY & BLO OD GAS ORDERABLES [facility] [address] [place] [address] documented in this encounter Visit Diagnoses Diagnosis Other ascites documented in this encounter Care Teams Armature Winder Repair Relationship Specialty Start Date End Date Linda Blancas MD [address] [place], [place] 999[address] PCP - General 01/06/11 Adolfo Carreno MD [address] [facility], [address] 2 [place] [address] General Surgery 04/26/19 documented as of this encounter
--- OUTSIDE RECORDS SUMMARY | 2024-03-20 14:36 | XMS_ITS | Encounter Summary ---
Author Organization [facility] Address [address] [place] [address] Care Team Providers Care Flight Service Agent Name Role Phone Linda Blancas MD Primary Care Provider [phone] Adolfo Carreno MD Unavailable Reason for Visit * Reason Comments Follow-up Encounter Details Date Type Department Care Team (Late st Contact Info) Description 01/06/2024 16:45 EDT Telemedicine [facility] Hematology & Oncology - [address] [phone] Alisson Carreon MD [address] [place] [address], [address] [place] [address] Primary malignant neoplasm of breast with metastasis (HCC-CMS) (Primary Dx); Malignant neoplasm of right female breast, unspecified estrogen receptor status, unspecified site of breast (HCC-CMS) Social History Tobacco Use Types Packs/Day [...] in the past [address] [facility], were you homeless or living in a care home (including now)? No 12/13/2023 Interpersonal Safety Answer Date Record ed How often does anyone, manuela yung family, hit, punch or physically hurt you? 12/12/2023 How often does anyone, manuela yung family, [...] Progress Notes * Alisson Carreon MD - 01/06/2024 1645 EDT Follow Up Breast Oncology Telemedicine Visit 01/06/24 Assessment & Plan 63 y.o. 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, lungs, mediastinal nodes 2016, liver mets since 11/2021 Current line of therapy: Enhertu (every 21 days since 10/18/23), 4th cycles on 12/20/23 01/06/24: CT scan with possible pneumonitis from Enhertu, since has worsening SOB, dyspnea, desat needs to go to ER, start steroids, pulmonary w/u, r/o infectious etiology, consider bronch New recurrent ascites since 11/08/23 first paracentesis (1800cc) in ER 11/29/23: 1700cc removed, 01/03/24: 3 liters removed Per hepatology: Ascitic fluid analysis results indicate that ascites is from portal hypertension, and that the patient would benefit from diuretics. Starting furosemide 20 mg daily, spironolactone 50mg daily, track weight. 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 Lung biopsy 06/22/23 - adenocarcinoma consistent with metastatic breast cancer; ER+ >90%, NC < 5%; HER2 2+ equivocal; [facility] FISH testing negative 11/29/23 Guardant with ESR1 [...] every 9-12 weeks (r/o pneumonitis side effect) Transaminits (grade 1) from liver mets: monitor ECHO every 3 months, next due January [address] C/A/P end of December 2023 ->since she just had CT during admission then I recommend to push this out to 03/2024 LE edema- see PT, compression stockings Continue diuretics with hepatology, ascitic fluid from portal HTN, consider aspira catheter, she will d/w slicer machine operator 01/06/24: long discussion with pt about CT chest findings concerning for pneumonitis from Enhertu that can be life threatening and since she has acute worsening of her SOB, cough and now desating to 6-80% she needs to go to ER urgently to start steroids, r/o infection, start O2, plan on admission. Though they were hesitant at first to go to ER they agree to now. She is depressed and tired of the situation, it is very difficult. Treatment lorezno we discussed likely changing to weekly taxol or abraxane and this can be started after she stabilizes from respiratory standpoint I have answered all the questions to the best of my ability I think palliative care and SW consult would be a good idea. Breast Oncology History PROBLEM LIST: 1. 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 Ultrasound performed in [place] identifying an irregular heterogeneous soft tissue mass measuring 1.2 x 1.2 x 1.5 cm. b. 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 HER-2 1+ by IHC. ANNE MARIE revealed [...] breast tumor 07/07/17 and placement of tissue desktop engineer. 1.9 cm tumor at time ofsurgery, well [...] consistent with metastatic breast cancer; ER+ >90%, NC < 5%; HER2 2+ equivocal; [facility] FISH testing negative M. Elacestrant initiated early [...] 150mg to 75mg) and muscle cramps significantlyworsened Waller- 1 liter NS next week to prevent dehydration (she thinks recent confusion leading to admission was from vomiting and dehydration) Worsening muscular cramps- go back to gabapentin prior dose and try magnesium Subjective Zoom f/u to answer questions Worsening in SOB and cough since Tuesday After came home from hospital December 13 and after last paracentesis Tuesday (3 liter removed) loose bowels for 3 days I have never been that cleaned) since then breathing more difficult, more labored, cannot walk, heart races every time climbs stairs and needs to sit down More coughing Objective There were no vitals filed for this visit. Wt Readings from Last 3 Encounters: 12/20/23 55.6 kg (122 lb 9.6 oz) 12/12/23 53.5 kg (118 lb) 12/09/23 55 kg (121 lb 4.1 oz) Labs and Imaging CT CHEST W CONTRAST Result Date: 01/05/2024 [...] spleen with a large amount of ascites. [id number] IR PARACENTESIS-RADIOLOGY Result Date: 01/03/2024 Successful, uncomplicated paracentesis using sonographic guidance yielding 3 L of fluid. LUNA Arguelles PA-C Interventional Radiology I have personally reviewed the images and the above interpretation and agree with the findings. [id number] IR PARACENTESIS-RADIOLOGY Result Date: 12/20/2023 Successful, uncomplicated paracentesis using sonographic guidance yielding 1.8 L fluid. LUNA Arguelles PA-C Interventional Radiology I have personally reviewed the images and the above interpretation and agree with the findings. [id number] MR HEAD W WO CONTRAST Result Date: 12/13/2023 No evidence of intracranial metastatic disease [id number] CT HEAD WO CONTRAST Result Date: 12/12/2023 No evidence of recent intracranial hemorrhage, acute infarction, or mass. I have personally reviewed the images and the above interpretation and agree with the findings. [id number] CT ABDOMEN PELVIS W CONTRAST Result Date: 12/12/2023 1. Hyperenhancement of the mucosa involving the ileum suspicious for enteritis. 2. Unchanged hepatic metastatic disease compared to exam from 11/09/2023. 3. Incidentally noted bilateral pulmonary emboli, unchanged from exams on 11/09/2023. 4. Sequela of portal hypertension, including moderate to large volume ascites. 5. Lytic right iliac bone lesion, unchanged. 6. Cholelithiasis. I have personally reviewed the images and the above interpretation and agree with the findings. [id number] Data reviewed this visit include: problem list/past [...] Appointment [facility] Interventional Radiology Unit [address] [place] [address] [phone] 04/02/2024 15:15 EDT Office Visit [facility] Surgical Oncology - [address] [phone] Adolfo Carreno MD [address] [place] [address] [phone] 04/05/2024 9:30 EDT Telemedicine [facility] - [facility] Palliative Care Services [address] [place] [address] [phone] Chichi Woods MD [address] [place] [address] [phone] 04/11/2024 15:00 EDT Telemedicine [facility] Hematology & Oncology [address] [phone] Alisson Carreon MD [address] [place] [address] [phone] 04/13/2024 13:30 EDT Appointment [facility] Hematology & Oncology - [address] [phone] 04/13/2024 14:00 EDT Appointment [facility] Hematology & Oncology - [address] [phone] 04/16/2024 10:00 EST Telemedicine [facility] - [facility] Palliative Care Services [address] [place] [address] [phone] Chichi Woods MD [address] [place] [address], [address] [phone] 04/24/2024 9:00 EST Appointment [facility] Radiology CT Outpatient - [address] [id number] 04/24/2024 11:00 EST Appointment [facility] Breast Imaging - [address] [phone] 04/27/2024 12:00 EST Appointment [facility] Hematology & Oncology [address] [phone] 05/02/2024 15:00 EST Telemedicine [facility] Hematology & Oncology [address] 100461 Alisson Carreon MD [address] [place] [address], [facility], Level [address] [place] [phone] 05/04/2024 10:15 EST Ancillary Procedure [facility] Cardiology - [place] [address] 05/04/2024 11:30 EST Appointment [facility] Hematology & Oncology [address] [phone] 05/04/2024 12:00 EST Appointment [facility] Hematology & Oncology - [address] [phone] 06/12/2024 13:00 [facility] Radiology CT - [facility] [address] [place] [address] documented as of this encounter Visit Diagnoses Diagnosis Primary malignant neoplasm of breast with metastasis (HCC-CMS)- Primary Malignant neoplasm of right female breast, unspecified estrogen receptor status, unspecified site of breast (HCC-CMS) documented in this encounter Care Teams Flight Service Agent Relationship Specialty Start Date End Date Linda Blancas MD [facility] [address] [place] [address] PCP - General 01/06/11 Adolfo Carreno MD [address] [place] [address], [facility], [address] [place] [phone] General Surgery 04/26/19 documented as of this encounter
--- OUTSIDE RECORDS SUMMARY | 2024-03-20 14:36 | XMS_ITS | Encounter Summary ---
Author Organization [facility] Address [address] [place] [address] Care Team Providers Care Outside B2B Sales Name Role Phone Linda Blancas MD Primary Care Provider [phone] Adolfo Carreno MD Unavailable [phone] Reason for Visit * Reason Onset Date Comments New/Evolving Symptoms 01/06/2024 Encounter Details Date Type Department Care Team (Late st Contact Info) Description 01/06/2024 Telephone [facility] Pulmonology & Critical Care - [facility] [address], [place] [phone] Jessica Sheridan RN New/Evolving Symptoms Social History Tobacco Use Types Packs/Day Years Used Date Smoking Tobacco: Never Passive Smoke Exposure: Never Smokeless Tobacco: Never Alcohol Use Standard Drinks/Week Comments Not Currently 1 (1 standard drink = 0.6 oz pur e alcohol) [facility] Utilities Answer Date Recorded In the past 12 months has [employer], gas, oil, or water [employer] threatened to shut off services in your [...] medical appointments or from getting medications? No 07/0 07/2023 In the past 12 months, has [...] time in the past 12 m [facility], were you homeless or living in a penitentiary (including now)? No 12/13/2023 Interpersonal Safety Answer [...] encounter Miscellaneous Notes * Telephone Encounter - Nash Beard MD - 01/06/2024 6751 EDT Attmempted to call Send[facility] but only got voicemail. I would advise nearest ED for hypoxia as recommended by nurse Arvin. Nash Beard MD * Telephone Encounter - Jessica Sheridan, RN - 01/06/2024 1350 EDT Received message from oncology re: recent chest CT while monitoring enhurtu. Chest CT with GG opacities bilaterally, and atelectasis. Per oncology plan to hold enhurtu for 6-8 weeks with a repeat [address].Requesting pulm insight. Called Sendy and spoke to her and her . Over the last cough weeks patient has had increased cough, and shortness of breath. These symptoms have acutely worsened in the last 2-3 days. Sendy reports significant shortness of breath with minimal activity. She is only able to walk about 30 ft without stopping and can only climb one to three steps at a time. She even feels shortness of breath with talking for long intervals. Her reports Spo2 of 60% with activity and 80% at rest. She iscoughing constantly which is mostly dry expect for the morning when she produces a quarter size of yellow sputum. She is trying hydrating and OTC remedies to expectorate- she feels congested. Denies fevers or chills. Has some nocturnal symptoms- but not as significant as during the day. Her fatigueseems baseline. Per he is concerned about depression. Patient is hydrating well, and is working on eating better. She states between shortness of breath and ascites/feeling full eating is difficult. Both patient and express frustration with decline in functional and health status. They state since admission earlier this month December has been a medical nightmare. Emotional support provided. She continues on 10 mg of prednisone daily. Informed Send[facility] and significant concerns of low oxygen saturations and shortness of breath. Informed her that if she is not maintaining 90% or higher at rest recommendation for evaluation at ED. Pateint and would like to avoid ED at all cost. They report her hands are cold and pulse ox is generic kind from drug store so they are unsure if they trust it. They also state they live [place]hour away from a hospital and if it is ok to wait for the drive to the ED they are unsure if they would want to go in the first place. Informed them for spo2 I the 60% recommendation would be for an ambulance to get supplemental oxygen and medical help urgently. If sating in he 80% would recommended still going to ED with someone driving her. They declined at this time- asked if oxygen can be urgently set up. Informed them unfortunately oxygen is difficult to set up/get approved through insurance on acute basis and reiterated safety concerns. Typically requires medical testing to prove need for O2, an office visit, and for patient to be in a stable and chronic state for insurance coverage. continues to express wishes for urgency in addressing shortness of breath, but continues to decline ED care. Informed them symptom update will be provided to Dr. Leach and request for her to review images. Dr. Leach is OOO- will send to consult provider Dr. Beard. documented in this encounter Plan of Treatment Upcoming Encounters Date Type Department Care Team (Late st Contact Info) Description 04/02/2024 10:30 EDT Appointment [facility] Interventional Radiology Unit [address] [place] [address] [phone] 04/02/2024 15:15 EDT Office Visit [facility] Surgical Oncology - [address] 277221 Adolfo Carreno MD 111 [facility], Level [address] [place] [phone] 04/05/2024 9:30 EDT Telemedicine [facility] - [facility] Palliative Care Services [address], [place] [phone] Chichi Woods MD 111 [facility], [address] [place] [phone] 04/11/2024 15:00 EDT Telemedicine [facility] Hematology & Oncology - Main [address] 033111 Alisson Carreon MD [address] [place] [address] 2 [place] [phone] 04/13/2024 13:30 EDT Appointment [facility] Hematology & Oncology - [address] [phone] 04/13/2024 14:00 EDT Appointment [facility] Hematology & Oncology - [address] [phone] 04/16/2024 10:00 EST Telemedicine [facility] - [facility] Palliative Care Services [address] [place] [address] [phone] Chichi Woods MD [address] [place] [address] [phone] 04/24/2024 9:00 EST Appointment [facility] Radiology CT Outpatient - [address] [phone] 04/24/2024 11:00 EST Appointment [facility] Breast Imaging - [facility] S [address] [phone] 04/27/2024 12:00 EST Appointment [facility] Hematology & Oncology - [address] 179031 05/02/2024 15:00 EST Telemedicine [facility] Hematology & Oncology - [address] 515771 Alisson Carreon MD [address] [place] [address], [facility] 2 [place] [phone] 05/04/2024 10:15 EST Ancillary Procedure [facility] Cardiology - [address] [place], [place] [phone] 05/04/2024 11:30 EST Appointment [facility] Hematology & Oncology [address] [address] 05/04/2024 12:00 EST Appointment [facility] Hematology & Oncology [address] [address] 06/12/2024 13:00 EST Appointment [facility] Radiology CT - [address] [address] documented as of this encounter Visit Diagnoses Not on filedocumented in this encounter Care Teams Outside B2B Sales Relationship Specialty Start Date End Date Linda Blancas MD [facility] [address] [place] [address] PCP - General 01/06/11 Adolfo Carreno MD [address] [place] [address], [address] [place] [address] General Surgery 04/26/19 documented as of this encounter
--- OUTSIDE RECORDS SUMMARY | 2024-03-20 14:36 | XMS_ITS | Encounter Summary ---
Author Organization [facility] Address [address] [place] [address] Care Team Providers Care Workers Compensation Examiner Name Role Phone Linda Blancas MD Primary Care Provider [phone] Adolfo Carreno MD Unavailable [phone] Encounter Details Date Type Department Care Team (Late st Contact Info) Description 01/06/2024 Orders Only [facility] Cancer Center Hematology & Oncology - [address] [phone] Alisson Carreon MD 111 [facility], Level 2 [place] [address] Social History Tobacco Use Types Packs/Day Years Used Date Smoking Tobacco: Never Passive Smoke Exposure: Never Smokeless Tobacco: Never Alcohol Use Standard Drinks/Week Comments Not Currently 1 (1 standard drink = 0.6 oz pur e alcohol) [facility] Utilities Answer Date Recorded In the past 12 months has [employer], gas, oil, or water [employer] threatened to shut off services in your [...] any time in the past 12 m [facility], were you homeless or living in a alf (including now)? No 12/13/2023 Interpersonal Safety Answer Date Record ed How often does anyone, manuela yung family, hit, punch or physically hurt you? 12/12/2023 How often does anyone, joselynstefanie aga family, [...] Notes * Alisson Carreon MD - 01/06/2024 9515 EDT From: Nash Beard MD Sent: 01/06/2024 15:46 EDT To: Jessica Sheridan RN; Alisson Carreon MD; * Patient should go to nearest ED. We could increase steroids to around 1 mg/kg but this will not resolve hypoxia quickly enough and we can't get her supplemental O2 today. I tried to call but got VM. 01/05/25: Dr. Valladares: discussed these recs with pt today and she agrees to go to ER documented in this encounter Plan of Treatment Upcoming Encounters Date Type Department Care Team (Late st Contact Info) Description 04/02/2024 10:30 EDT Appointment [facility] Interventional Radiology Unit [address] [place] [address] [phone] 04/02/2024 15:15 EDT Office Visit [facility] Surgical Oncology - [address] [phone] Adolfo Carreno MD [address] [place] [phone] 04/05/2024 9:30 EDT Telemedicine [facility] - [facility] Palliative Care Services [address] [place] [address] [phone] Chichi Woods MD [address] [place] [phone] 04/11/2024 15:00 EDT Telemedicine [facility] Hematology & Oncology - [address] [phone] Alisson Carreon MD [address] [place] [address] 2 [place] [phone] 04/13/2024 13:30 EDT Appointment [facility] Hematology & Oncology - [address] [phone] 04/13/2024 14:00 EDT Appointment [facility] Hematology & Oncology - [address] [address] 04/16/2024 10:00 EST Telemedicine [facility] - [facility] Palliative Care Services [address] [place] [address] [phone] Chichi Woods MD [address] [place] [address] [phone] 04/24/2024 9:00 EST Appointment [facility] Radiology CT Outpatient - [address] [address] 04/24/2024 11:00 EST Appointment [facility] Breast Imaging - [facility] S [place] [address] [place], [place] 6544[address] 04/27/2024 12:00 EST Appointment [facility] Hematology & Oncology - [address] [phone] 05/02/2024 15:00 EST Telemedicine [facility] Hematology & Oncology - [address] [address] Alisson Carreon MD [address] [place] [address], [address] [place] [phone] 05/04/2024 10:15 EST Ancillary Procedure [facility] [place]iology [place] [place] [address] 05/04/2024 11:30 EST Appointment [facility] Hematology & Oncology - [address] [phone] 05/04/2024 12:00 EST Appointment [facility] Cancer Center Hematology & Oncology - [address] [phone] 06/12/2024 13:00 EST [facility]ointment [facility] Radiology CT - [address] [address] documented as of this encounter Visit Diagnoses Not on filedocumented in this encounter Care Teams Workers Compensation Examiner Relationship Specialty Start Date End Date Linda Blancas MD [facility] [address] [place] [address] PCP - General 01/06/11 Adolfo Carreno MD [address] [place] [address], [facility], Level [address] [place] [address] General Surgery 04/26/19 documented as of this encounter
--- OUTSIDE RECORDS SUMMARY | 2024-03-20 14:36 | XMS_ITS | Encounter Summary ---
Author Organization [facility] Address [address] [place] [address] Care Team Providers Care Research Intern Name Role Phone Linda Blancas MD Primary Care Provider [phone] Adolfo Carreno MD Unavailable [phone] Reason for Referral * Radiology Services (Routine/Next Available) - Authorization Not Required Specialty Diagnoses / Procedures [facility] Referred To Contact Diagnoses Primary malignant neoplasm of breast with metastasis (HCC-CMS) Ground glass opacity present on imaging of lung Procedures CT CHEST WO CONTRAST Alisson Carreon MD [address] [place] [phone] [facility] Referral ID Status Reason Start Date Expiration Date Visits Requested Visits Authorized [id number] Authorization Not Required 01/06/2024 1 1 Encounter Details Date Type Department Care Team (Late st Contact Info) Description 01/06/2024 Orders Only [facility] Cancer Center Hematology & Oncology - [address] [phone] Alisson Carreon MD [address] [place] [phone] Primary malignant neoplasm of breast with metastasis (HCC-CMS) (Primary Dx); Ground glass opacity present on imaging of lung Social History Tobacco Use Types Packs/Day Years Used Date Smoking Tobacco: Never Passive Smoke Exposure: Never Smokeless Tobacco: Never Alcohol Use Standard Drinks/Week Comments Not Currently 1 (1 standard drink = 0.6 oz pur e alcohol) [facility] Utilities Answer Date Recorded In the [...] hurt you? 12/12/2023 How often does anyone, inclu aga family, [...] Contact Info) Description 04/02/2024 10:30 EDT Appointment [facility] Interventional Radiology Unit [address] [place] [address] 04/02/2024 15:15 EDT Office Visit [facility] Surgical Oncology - [address] [phone] Adolfo Carreno MD [address] [place], [place] [phone] 04/05/2024 9:30 EDT Telemedicine [facility] - [facility] Pall[facility] [address] [place] [address] [phone] Chichi Woods MD [address] [place] [phone] 04/11/2024 15:00 EDT Telemedicine [facility] Hematology & Oncology [address] [phone] Alisson Carreon MD [address] [place] [phone] 04/13/2024 13:30 EDT Appointment [facility] Hematology & Oncology [address] [phone] 04/13/2024 14:00 EDT Appointment [facility] Hematology & Oncology [address] [phone] 04/16/2024 10:00 EST Telemedicine [facility] - [facility] Pall[facility] [address] [place] [address] [phone] Chichi Woods MD [address] [place] [address] [phone] 04/24/2024 9:00 EST Appointment [facility] Radiology CT Outpatient - [address] [id number] 04/24/2024 11:00 EST Appointment [facility] Breast Imaging - [facility] S [place] [address] [place], [place] 165[address] 04/27/2024 12:00 EST Appointment [facility] Hematology & Oncology [address] [phone] 05/02/2024 15:00 EST Telemedicine [facility] Hematology & Oncology - [address] 876131 Alisson Carreon MD [address] [place] [address], Level 2 [place] [phone] 05/04/2024 10:15 EST Ancillary Procedure [facility] Cardiology - [place] [address] 05/04/2024 11:30 EST Appointment [facility] Hematology & Oncology - [address] [phone] 05/04/2024 12:00 EST Appointment [facility] Cancer Center Hematology & Oncology - [address] [address] 06/12/2024 13:00 EST Appointment [facility] Radiology CT - [address] [address] Scheduled Orders Name Type Priority Associated Diagnoses Orde r Schedule CT CHEST WO CONTRAST Imaging Routine Primary malignant neoplasm of breast with metastasis (HCC-CMS) Ground glass opacity present on imaging of lung Expected: 02/13/2024, Expires: 07/08/2025 documented as of this encounter Visit Diagnoses Diagnosis Primary malignant neoplasm of breast with metastasis (HCC-CMS)- Primary Ground glass opacity present on imaging of lung documented in this encounter Care Teams Research Intern Relationship Specialty Start Date End Date Linda Blancas MD [facility] [address] [place] [address] PCP - General 01/06/11 Adolfo Carreno MD [address] [place] [address], [facility], [address] [place] [address] General Surgery 04/26/19 documented as of this encounter
--- OUTSIDE RECORDS SUMMARY | 2024-03-20 14:36 | XMS_ITS | Encounter Summary ---
Author Organization [facility] Address [address] [place] [address] Care Team Providers Care Application Security Developer Name Role Phone Linda Blancas MD Primary Care Provider [phone] Adolfo Carreno MD Unavailable [phone] Encounter Details Date Type Department Care Team (Late st Contact Info) Description 01/06/2024 Orders Only [facility] Cancer Center Hematology & Oncology - [address] [phone] Daily, Ana Laura RN Primary malignant neoplasm of breast with metastasis (HCC-CMS) (Primary Dx) Social History Tobacco Use Types Packs/Day Years Used Date Smoking Tobacco: Never Passive Smoke Exposure: Never Smokeless Tobacco: Never Alcohol Use Standard Drinks/Week Comments Not Currently 1 (1 standard drink = 0.6 oz pur e alcohol) [facility] Utilities Answer Date Recorded In the past 12 months has [employer], gas, oil, or water [employer] threatened to shut off services in your [...] [place] [facility] (including [facility])? No 12/13/2023 Interpersonal Safety Answer [...] Dispensed Refills Start Date End Da te venlafaxine (EFFEXOR-XR) 75 mg XR capsuleIndications:Prima ry malignant neoplasm of breast with metastasis (HCC-CMS) Take 1 Capsule by mouth daily for 360 days. 30 Capsule 11 01/06/2024 12/31/2024 documented in this encounter Progress Notes * Daily, SHELLEY Du - 01/06/2024 1342 EDT Pt requesting refill for venlafaxine [address]. [address] Carreon's note from 12/19: Started weaning off gabapentin and venlafaxine (from 150mg to 75mg)and muscle cramps significantly worsened Will pend to Dr Carreon to verify dose of venlafaxine. documented in this encounter Plan of Treatment Upcoming Encounters Date Type Department Care Team (Late st Contact Info) Description 04/02/2024 10:30 EDT Appointment [facility] Interventional Radiology Unit [address] [place] [address] [phone] 04/02/2024 15:15 EDT Office Visit [facility] Surgical Oncology - [address] [phone] Adolfo Carreno MD [address] [place] [phone] 04/05/2024 9:30 EDT Telemedicine [facility] - [facility] Palliative Care Services [address] [place] [address] [phone] Chichi Woods MD [address] [place] [address], [address] [phone] 04/11/2024 15:00 EDT Telemedicine [facility] Hematology & Oncology - [address] [phone] Alisson Carreon MD [address] [place] [address] 2 [place] [phone] 04/13/2024 13:30 EDT Appointment [facility] Hematology & Oncology - [address] [phone] 04/13/2024 14:00 EDT Appointment [facility] Hematology & Oncology - [address] [phone] 04/16/2024 10:00 EST Telemedicine [facility] - [facility] Palliative Care Services [address] [place] [address] [phone] Chichi Woods MD [address] [place] [address] [phone] 04/24/2024 9:00 EST Appointment [facility] Radiology CT Outpatient - [address] [phone] 04/24/2024 11:00 EST Appointment [facility] Breast Imaging - [facility] S [address] 736681 04/27/2024 12:00 EST Appointment [facility] Hematology & Oncology - [address] [phone] 05/02/2024 15:00 EST Telemedicine [facility] Hematology & Oncology [address] [phone] Alisson Carreon MD [address] [place] [address], [facility] 2 [place] [phone] 05/04/2024 10:15 EST Ancillary Procedure [facility] Cardiology [place] [address] 05/04/2024 11:30 EST Appointment [facility] Hematology & Oncology [address] [phone] 05/04/2024 12:00 EST Appointment [facility] Hematology & Oncology [address] [address] 06/12/2024 13:00 [facility] Radiology CT - [facility] [address] [place] [address] documented as of this encounter Visit Diagnoses Diagnosis Primary malignant neoplasm of breast with metastasis (HCC-CMS)- Primary documented in this encounter Discontinued Medications Medication Sig Discontinue Reason Start Date End Da te venlafaxine (EFFEXOR-XR) 75 mg XR capsule Take 1 Capsule by mouth daily for 30 days. Reorder 12/15/2023 01/06/2024 documented as of this encounter Care Teams Application Security Developer Relationship Specialty Start Date End Date Linda Blancas MD [address] [place] [address] PCP - General 01/06/11 Adolfo Carreno MD 111 [facility], [facility], Level [address] [place] [address] General Surgery 04/26/19 documented as of this encounter
--- OUTSIDE RECORDS SUMMARY | 2024-03-20 14:36 | XMS_ITS | Encounter Summary ---
Author Organization [facility] Address [address] [place] [address] Care Team Providers Care Hydraulics Engineer Name Role Phone Linda Blancas MD Primary Care Provider [phone] Adolfo Carreno MD Unavailable [phone] Encounter Details Date Type Department Care Team (Late st Contact Info) Description 01/06/2024 Orders Only [facility] Hematology & Oncology - [address] [id number] Quita Álvarez, SHELLEY Malignant neoplasm of right female breast, unspecified estrogen receptor status, unspecified site of breast ([facility]) (Primary Dx) Social History Tobacco Use Types Packs/Day Years Used Date Smoking Tobacco: Never Passive Smoke Exposure: Never Smokeless Tobacco: Never Alcohol Use Standard Drinks/Week Comments Not Currently 1 (1 standard drink = 0.6 oz pur e alcohol) [facility] Utilities Answer Date Recorded In the past 12 months has [employer], gas, oil, or water [employer] threatened to shut off services in your [...] in the past 12 m [facility], were you homeless or living in [...] as of this encounter Progress Notes * Quita Álvarez RN - 01/06/2024 1023 EDT Deferred tx until after 02/06 ct scan to r/o Enhertu pneumonitis. 02/20 requested to allow for PV as well and per pt note. QUITA ÁLVAREZ RN documented in this encounter Plan of Treatment Upcoming Encounters Date Type Department Care Team (Late st Contact Info) Description 04/02/2024 10:30 EDT Appointment [facility] Interventional Radiology Unit [address] [place] [address] [phone] 04/02/2024 15:15 EDT Office Visit [facility] Surgical Oncology - [address] [phone] Adolfo Carreno MD [address] [place] [address] [phone] 04/05/2024 9:30 EDT Telemedicine [facility] - [facility] Palliative Care Services [address] [place] [address] [phone] Chichi Woods MD [address] [place] [address] [phone] 04/11/2024 15:00 EDT Telemedicine [facility] Hematology & Oncology [address] [phone] Alisson Carreon MD [address] [place] [address] [phone] 04/13/2024 13:30 EDT Appointment [facility] Hematology & Oncology [address] [phone] 04/13/2024 14:00 EDT Appointment [facility] Hematology & Oncology [address] [phone] 04/16/2024 10:00 EST Telemedicine [facility] - [facility] Palliative Care Services [address] [place] [address] [id number] Chichi Woods MD [address] [place] [address], [address] [phone] 04/24/2024 9:00 EST Appointment [facility] Radiology CT Outpatient - [address] [id number] 04/24/2024 11:00 EST Appointment [facility] Breast Imaging - [facility] [address] [place], [place] 190421 04/27/2024 12:00 EST Appointment [facility] Hematology & Oncology - [address] [id number] 05/02/2024 15:00 EST Telemedicine [facility] Hematology & Oncology - [address] [id number] Alisson Carreon MD [address] [place] [address], [facility], Level [address] [place] [phone] 05/04/2024 10:15 EST Ancillary Procedure [facility] Cardiology - [address] [place], [place] [phone] 05/04/2024 11:30 EST Appointment [facility] Hematology & Oncology - [address] [id number] 05/04/2024 12:00 EST Appointment [facility] Hematology & Oncology - [address] [phone] 06/12/2024 13:00 EST Appointment [facility] Radiology CT - [address] [id number] documented as of this encounter Visit Diagnoses Diagnosis Malignant neoplasm of right female breast, unspecified estrogen receptor status, unspecified site of breast (HCC-CMS)- Primary documented in this encounter Orders Appointment Requests Count Last Ordered Date Fi rst Ordered Date [facility] INFUSION APPOINTMENT REQUEST - CALCULATED 3 03/16/2024 02/02/2024 [facility] CLINIC APPOINTMENT REQUEST 2 024 documented in this encounter Additional Health Concerns Infection Onset Date Last Indicated Resolved Time R/O COVID-19 01/08/2024 01/08/2024 01/08/2024 18:2 6 EDT R/O COVID-19 01/16/2024 01/16/2024 01/16/2024 17:5 0 EDT documented as of this encounter Care Teams Hydraulics Engineer Relationship Specialty Start Date End Date Linda Blancas MD [address] [place] [address] PCP - General 01/06/11 Adolfo Carreno MD [address] [place] [address] [address] [place] [phone] General Surgery 04/26/19 documented as of this encounter
--- OUTSIDE RECORDS SUMMARY | 2024-03-20 14:36 | XMS_ITS | Encounter Summary ---
Author Organization [facility] Address [address] [place] [address] Care Team Providers Care Sheriffs Detective Name Role Phone Linda Blancas MD Primary Care Provider [phone] Adolfo Carreno MD Unavailable [phone] Reason for Visit * Reason Comments Shortness of Breath Pt arrives with comp laint of worsening exertional shortness of breath for 1 month. Has been seen multiple times for similar. Has hx breast cancer with mets, including lungs. Currently on chemo therapy, last chemo 12/20/2023. * Auth/Cert (Routine) Specialty Diagnoses / Procedures [facility] Referred To Contact Diagnoses Shortness of breath Anemia, unspecified type Acute hypoxic respiratory failure (HCC-CMS) Referral ID Status Reason Start Date Expiration Date Visits Re quested Visits Authorized [id number] 1 1 Encounter Details Date Type Department Care Team (Late st Contact Info) Description 01/11/2024 15:02 EDT - 01/11/2024 16:42 EDT Surgery [facility] [place] [address] [place], [place] [id number] Chelsea Logan MD [address] [place] [address], [address] [place] [address] Flexible bronchoscopy with possible broncheoalveolar lavage, possible needle biopsies, forceps biopsies and possible brushings. [88981 (CPT??)] Surgery Details Date/Time Status Location OR Service Patient Class Case Class Case Type Trauma Case? 01/11/24 1502 Posted [facility] OR MPU 05 Pulmonary Inpatient E - Le ss than 12 hours Panel 1 Procedure LRB Anes Op Region Wound Class Comments Flexible bronchoscopy with possible broncheoalveolar lavage, possible needle biopsies, forceps biopsies and possible brushings. N/A Nurse Moderate Sedation Chest Class II/ Clean Contaminated Surgeon Surgeon Role Service Panel Chelsea Logan MD Primary Pulmonary 1 Special Needs IV Sedation documented in this encounter Social History Tobacco Use Types Packs/Day Years Used Date Smoking Tobacco: Never Passive Smoke Exposure: Never Smokeless Tobacco: Never Alcohol Use Standard Drinks/Week Comments Not Currently 1 (1 standard drink = 0.6 oz pur e alcohol) [facility] Utilities Answer Date Recorded In [...] any time in the past 12 m [facility], were you homeless or living [...] Sign Reading Time Taken Comments Blood Pressure 119/75 01/11/2024 1638 EDT Pulse 105 01/11/2024 1300 EDT Temperature 36.8 ??C (98.3 ??F) 01/11/2024 1300 EDT Respiratory Rate 15 01/11/2024 1641 EDT Oxygen Saturation 100% 01/11/2024 1641 EDT Inhaled Oxygen Concentration - - Weight [...] 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 Leukocytosis 01/13/2024 Ground glass opacity present on imaging of lung 01/12/2024 Mild malnutrition (HCC) ([facility]) 01/11/2024 Class: Present on Admission Acute hypoxic respiratory failure ([facility]) 01/08/2024 Anemia, unspecified type 01/08/2024 Metastatic malignant neoplasm ([facility]) 12/12/2023 Palliative care by specialist 10/03/[address] of the chest 01/09/2024 Resolved Hospital Problems No resolved problems to display. Transition of care: [facility] Transition of Care report automatically routed [...] holiday so lasix were reduced to her MANAGER [employer] MARKET[employer] dose prior to discharge. During her stay [...] Care. Prior to discharge her oncologist and grease rack worker teams were contacted and transfer of care was received. Relevant Imaging/Procedures Performed: CT chest Bronchoscopy with BAL Paracentesis x 3 RLE duplex ultrasound CXR Results Pending at Discharge: Test results still pending from this admission Procedure Component Value Units Date/Time AFB Culture/Smear, Other [[id number]] Collected: 01/11/241649 Lab Status: Preliminary result Specimen: BAL from Lung, left upper lobe Updated: 01/19/24 1323 Organism ID No acid-fast bacilli isolated AFB Smear No Acid Fast Bacilli Seen Nocardia Culture and Smear [[id number]] Collected: 01/11/241649 Lab Status: Preliminary result Specimen: BAL from Lung, left upper lobe Updated: 01/19/24 0808 Organism ID No aerobic actinomycetes isolated Fungal Smear No Modified acid fast bacilli seen Fungus Culture/Smear ([facility], [facility], [facility]) [[id number]] Collected: 01/11/241649 Lab Status: Preliminary result Specimen: BAL from Lung, left upper lobe Updated: 01/19/24807 Organism ID Yeast Not Cryptococcus or Dimorphic Fungi Fungal Smear No Fungi Seen CA 27.29 [[id number]] Collected: 01/19/24 0608 Lab Status: In process Specimen: Blood, Venous Updated: 01/19/2412 Bacterial Culture, Blood [[id number]] Collected: 01/16/24627 Lab Status: In process Specimen: Blood, Venous Updated: 01/16/24634 Bacterial Culture, Blood [[id number]] Collected: 01/16/24627 Lab Status: In process Specimen: Blood, Venous Updated: 01/16/24634 Bacterial Culture, Blood [[id number]] Collected: 01/16/2446 Lab Status: In process Specimen: Blood, Central Line Updated: 01/16/2453 Upcoming Appointments Jan 31, 2024 9:15 (Arrive by 9:00) TRANSTHORACIC ECHO (TTE) LIMITED with [id number] - ECHO F [facility] Non-Invasive Cardiology [facility] (--) [address] [place] [address] [id number] Jan 31, 2024 10:30 (Arrive by 10:15) PORT ACCESS/FLUSH with SHORT STAY CHAIR 3, HEM/ONC INF [facility] On[facility] ([facility] [place]) [address] [place] [address] [id number] Jan 31, 2024 11:00 (Arrive by 10:45) Follow Up Visit with Nadeen Blood PA-C [facility] ([facility] [place]) [address] [place] [address] [id number] Jan 31, 2024 12:30 (Arrive by 12:15) Injection with SHORT STAY CHAIR 1, HEM/ONC INF [facility] H[facility]ology [facility] Oncology [facility] ([facility] [place]) [address] [place] [address] [id number] Jan 31, 2024 12:30 (Arrive by 12:00) IR PARACENTESIS-RADIOLOGY with [facility] IR MCHV RM 27 [facility] Interventional Radiology Unit ([facility] Radiology [place]) [address] [facility] [id number] Feb 03, 2024 13:30 (Arrive by 13:15) Infusion with CHAIR 5 [facility] On[facility] ([facility] [place]) [address] [place] [address] Feb 07, 2024 10:00 MyChart Televideo Short with Errol Ferrell MD [facility] Infectious Disease - [facility] (--) [address] [facility] [address] To get ready for your MyChart Video Visit: If you encounter any issues or you would like to speak to someone in advance of the appointment to verify your device is configured, please feel free to call our Patient Access and Service Center at [phone]. Launch your MyChart video appointment by clicking on the Begin Video Visit button located in the Visit Details section for your Upcoming Visits. Before you can start the MyChart Video Visit, you willneed to complete the eCheck-In process, which can take a few minutes. If using a mobile device or a tablet, you will need the Walle[employer] Platform to Connect ja. Go to [email or web address] for Zoom setup instructions. Please join 15 minutes before your appointment time. Your visit will start when your provider is available. Visit [email or web address] for information on how to get ready. Feb 24, 2024 13:30 (Arrive by 13:15) Infusion with CHAIR 10 [facility] On[facility] ([facility] [place]) [address] [place] [id number] Feb 29, 2024 14:00 MyChart Televideo Short with David Moya MD [facility] Interventional Radiology [facility] (--) [address] [facility] [id number] To get ready for your MyChart Video Visit: If you encounter any issues or you would like to speak to someone in advance of the appointment to verify your device is configured, please feel free to call our Patient Access and Service Center at [phone]. Launch your MyChart video appointment by clicking on the Begin Video Visit button located in the Visit Details section for your Upcoming Visits. Before you can start the MyChart Video Visit, you willneed to complete the eCheck-In process, which can take a few minutes. If using a mobile device or a tablet, you will need the Wallept Platform to Connect ja. Go to [email or web address] [email or web address] for Zoom setup instructions. Please join 15 minutes before your appointment time. Your visit will start when your provider is available. Visit [email or web address] for information on how to get ready. Mar 13, 2024 7:45 (Arrive by 7:30) PORT ACCESS/FLUSH with SHORT STAY CHAIR 2, HEM/ONC INF [facility] Hematology & Oncology - [facility] ([facility]) [address] [place] [address] Mar 13, 2024 8:30 (Arrive by 8:15) CT Chest Abdomen Pelvis with [facility] [address] [facility] [address] - [facility] ([facility] Radiology [place]) [address] [place] [id number] Please arrive to your appointment well hydrated. Mar 13, 2024 13:00 (Arrive by 12:45) Follow Up Visit with Alisson Carreon MD [facility] On[facility] ([facility]) [address] [place], [place] [id number] Mar 16, 2024 12:00 (Arrive by 11:45) Infusion with CHAIR 11 [facility] H[facility]ology [facility] On[facility] ([facility]) [address] [place] [address] Apr 02, 2024 15:15 (Arrive by 15:00) Follow Up Visit with Adolfo Carreno MD [facility] Surgical Oncology - [facility] ([facility] [place]) [address] [place] [id number] Follow-up appointments and procedures Amb Consult/Follow Up [...] PGY-1 Resident Internal Medicine Associated attestation - Silevrio Porter MD - 01/20/2024 0755 EDT Attestation [...] medicine as well as PCP and outpatient phd intern who will continue to manage diuretics for [...] after your procedure. When to contact the [facility] (call 911 if symptoms are severe): [...] 12:49 EDT You were seen at the [facility] for shortness of breath found to [...] regarding your medications. Thank you for choosing [facility] for your care! documented in this encounter [...] jirovecii, 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[facility]) Take 3 mL by nebulization [...] Means Destination Comment s Home or Self Senior Living documented in this encounter Progress Notes * Zachariah [place] - 01/19/2024 1619 EDT Spouse called pulmonary clinic stating he had an issue with [facility]'s health oxygen delivery and is very upset and wishes to switch to [facility]. Cm called spouse (Nitish) who is upset [...] before tech said he's gonna go to [facility]. He's not using us. The should have at least let us go there with a 10 liter concentrator, so she wouldn't be with out O2- We have had an issue this week a shortage of E-tanks which she would only need if she was going outside of the home. CM faxed 'scipts and supporting documentation to [facility] in [place] . CM called them and spoke to their database consultant answering service who state they will pass msg along to the techs. CM requested a call back to verify this was received. CM called spouse Nitish to relay this info along. CM spoke to [facility] in [place] and confirmed they go the paperwork and 'scripts. ABEL Mims [employer] Artists' Model [id number] or avail by [facility] chat * Silverio Porter MD - 01/19/2024 1619 EDT Request for Documentation Clarification [facility] Sunshine Subramanian ; VISIT [id number]; ACCT [id number] Query Response Sent: 02/07/24 11:26 EDT From: SILVERIO PORTER MD Query question: Based on the clinical information below, please select the most appropriate diagnosis Provider response: Severe protein calorie malnutrition Original Query Sent: 02/01/24 14:47 EDT From: Jessica Velasquez, AUBREY Foreign Exchange Position Clerk, LIQUEFIED NATURAL GAS OPERATOR To: SILVERIO PORTER MD Based on the [...] Poor oral intake: yes * Consults * Clinical Education Manager/bobbin winder tender: 01/10, * Treatments/Procedures/Interventions: * Diet supplementation: yes - high calorie/protein oral supplements * Vitamins: yes Referenced Documents * Progress Notes - 01/11/24 12:58 * Progress Notes - 01/16/24 13:50 * Zachariah [place] - 01/19/2024 1608 EDT CM Discharge Note CASE MANAGEMENT DISCHARGE NOTE DISCHARGE DATE/TIME: 01/19/24 DESTINATION: home with spouse (If discharging to [facility]) COVID swab ordered and completed: TRANSPORTATION: spouse's car ACCEPTING MD AND NUMBER: PCP and Oncologist RN REPORT/UNIT: N CALL OUT CLERK/CHARGE/MD NOTIFIED (Y/N): Y FORMS: (Acute to acute, [...] will be delivered today. ABEL Mims [employer] Model [id number] or avail by [employer] * Radha Sexton RN - 01/19/2024 0328 [...] per discussion with Dr. Daphne Tripp. * Zachariah [place] - 01/18/2024 1538 EDT [facility] Department of Case Management and Social [...] Date of D/C: LTC Medicaid Status: na 10 01/18 n Primary Care Provider: [place]/[facility]/SNF referred: Y/N Bed Offers: Y/N Escalated to Leadership: Y/N Linda mccormack n Mobility Level: Recommended D/C Location Payor: [...] cannula and oximyzer. E-Signature ABEL Mims [employer] Model [id number] or avail by [employer] 01/18/24 15:39 * Tere Dc MD - 01/18/2024 1225 EDT INFECTIOUS DISEASES CONSULT SERVICE PROGRESS NOTE [...] now s/p bronchoscopy on 01/10 now with / bronc culture positive for PJP pneumonia (ID & Pulm managing). Patient continues to improve. Cause of 01/15 fever and leukocytosis remains unknown but patient [...] (will be completed on d/c) - Continue [employer] valtrex 500mg daily ppx - Home oxygen [...] alkalosis. - 01/17 decreased lasix 10mg from [employer] 20mg - Referral to f/u w/ hepatology on d/c for diuretic plans/recs. - [employer] Spironolactone restarted 01/17 - IR para order outpatient x2 placed, Sendy and her have been thinking about potential peritoneal drains - will need to loop in grease rack worker to further conversation outpatient - Ca 27-29 ordered 8/8 AM labs per pt request Chronic pain, [...] home on 2 mg tab. - continue [employer] gabapentin 300mg in the morning and afternoon, 600mg at bedtime. - continue flexeril 5-10mg BID prn - Dilaudid 1mg PO tab at bedtime prn for sleep/cramps discontinued zolpidem / poor response from patient - Okay for spot doses of IV Dilaudid for severe pain - TBW PCP for pain mediations continuation outpatient Mood disorder - continue [employer] venlafaxine 75mg daily RUE DVT and PE Dx 11/09/23. Unilateral swelling on exam 01/17 w/ limited ability to assess pulses. - Duplex US 01/17 w/o any evidence of DVT - Resumed [employer] Eliquis 01/11 CHECKLIST: L/D/A: Chest port, nasal [...] Pretty Spears - 01/17/2024 1344 EDT [facility] Spiritual Care Note Re: Sunshine Subramanian : 1960, AGE: 63 y.o. ROOM: [facility]/[id number] Spirituality: Hindu BACKGROUND Marbleizing Machine Tender met with patient who is being seen by palliative care. Patient was in good spirits and appreciated sharing her positivity and hopefulness. ASSESSMENT Beliefs & Values She grew up Lutheran and then became Hindu. Her sienna grounds her and helps her [...] tomorrow RECOMMENDATIONS TIME STAMP: 30 minutes PRETTY SPEARS [facility] Marbleizing Machine Tender Oral 131 Thank you for the opportunity to provide for this patient's/family's spiritual needs. * Kaylah Najera MD - 01/17/2024 0889 EDT Medical Oncology Progress Note Service Date: [...] 40 mg 01/14, taper continues - Continue [employer] valtrex 500mg daily ppx (initially prescribed iso [...] sx improve along with alkalosis. - continue [employer] gabapentin 300mg in the morning and afternoon, 600mg at bedtime. - continue flexeril 5-10mg BID prn - continue [employer] venlafaxine 75mg daily - [employer] Zolpidem reordered for difficulty sleeping secondary to cramps - Okay for spot doses of IV Dilaudid for severe pain RUE DVT and PE Dx 11/09/23 - Resumed [employer] Eliquis 01/11 CHECKLIST: L/D/A: Chest port, nasal [...] improving and approaching medically stable for discharge. Rheaikely will require supplemental oxygen when she discharges. She will also require ongoing serial paracenteses for management of her ascites. She is developing a contraction alkalosis and we may needto dial back or briefly pause diuretics. I spent a total of 35 minutes on the date of this encounter meeting with the patient and reviewing documentation/coordinating care as described in the above note. * Zachariah [place] - 01/16/2024 1607 EDT Pt remains IP due to a fever ; it is hopeful she will go home tmw. ABEL Mims [employer] Model [id number] or avail by [facility] chat * Kaylah Najera MD - 01/16/2024 [...] Negative Ketones UA Trace (A) Negative Specific Marshall, Urine 1.022 1.001 - 1.030 Blood UA [...] consulted and concern for PJP pneumonia. 01/14 [facility] culture positive for PJP pneumonia. Patient was [...] 40 mg 01/14, taper continues - Continue [employer] valtrex 500mg daily ppx (initially prescribed iso [...] Not improved with iron infusion. - continue [employer] gabapentin 300mg in the morning and afternoon, 600mg at bedtime. - continue flexeril 5mg BID prn - continue [employer] venlafaxine 75mg daily - [employer] Zolpidem reordered for difficulty sleeping secondary to cramps - Okay for spot doses of IV Dilaudid for severe pain - Follow-up leg cramps after night of 01/15 status post decreased Lasix dose RUE DVT and PE Dx 11/09/23 - Resumed [employer] Eliquis 01/11 CHECKLIST: L/D/A: Chest port, nasal cannula Diet: Regular Diet Code: Full Code VTE Prophylaxis apixaban Discharge Plan Will need to loop back with ID Tuesday, but anticipate likely DC Tuesday if remains stable and will need home O2 Consults Pulmonology, respiratory therapy and infectious disease appreciate recpola YOUNG MD 01/16/2024 15:42 Internal Medicine Associated [...] as described in the above note. * Mc Ben, RD - 01/16/2024 9569 EDT Nutrition Assessment Note: Reassessment BACKGROUND DATA [...] (01/11/24 1149) Midaxillary Line: Not assessed (01/11/24 1149) Muscle Mass Assessment [place]: Severe loss (01/11/24 1149) Clavicle Region: Severe loss (01/11/24 1149) Shoulder/Acromion/Clavicle Region: Not assessed (01/11/24 1149) Scapula Region: Not assessed (01/11/24 1149) Hand Region: Severe loss (01/11/24 1149) Thigh/Patellar Region: Not assessed (01/11/24 1149) Calf Region: Not assessed (01/11/24 1149) NFPE Assessment Summary of Fat Wasting: Severe [...] Estimated Nutrition Needs: BEE: 1046kcal @ 54.4kg (MS) Kcal: 6406-1019 @ 25-30kcal/kg/bw Protein: 1.5-1.6L Fluid: 71-82g @ [...] [address] RD, CD (Call PAS or use [employer] Web (Trendr) to page RD covering this unit) * [...] Note obtained on 01/12/24 for Medical/Family/Social History. Ihave reviewed this information and there is no [...] Reviewed in detail in PRISM. WBC/RBC/HGB/HCT/PLT/ANC25.58/2.27/8.4/25.1/198/22.66 (01/15 08) Cr 0.71 MICROBIOLOGY DATA: Reviewed in detail [...] Thank you for sending G6PD) -check another BRICK CLEANER swab for Covid-19, flu, RSV given new fevers -agree with BCxs -low threshold to pursue CT abd/pelvis if her abdominal pain persists I have been in touch with the primary team about my recommendations. Please reach out by [employer] secure chat if additional questions arise. I [...] Medications Reviewed Labs Reviewed: CBC: Recent Labs 01/14/24 05 WBC 16.80* HGB 7.3* MCV 107* PLT [...] results for input(s): PHISTAT, PCOISTAT, POISTAT, POCTCO2, N5DKZSOI, POCFIO2 in the last 72 hours. No [...] last 72 hours. No results for input(s): CYUESEDP68, FOLATE in the last 72 hours. No [...] above interpretation and agree with the findings. [id number] . Assessment/Plan Assessment 63 y/o female with [...] out or should we obtain Aspergillus IgE. Patirosie nt is immunosuppressed and has been on prednisone [...] Pulmonary Critical Care Medicine, PGY-4 Available on Epic 01/16/2024 7:51 Attestation statement: I performed or was present during the knight or critical portions of the visit and participated in the management of the patient. I agree with the findings and plan of care documented in the resident's/fellow's note. PJP noted. Would treat as currently doing and we will see patient in follow up in pulmonary clinic. Pavan Bianchi MD * Stacy Ferreira, RT - 01/16/2024 0715 EDT Respiratory Consult/Progress [...] Patient tolerated treatment well with no weaning. STACY FERREIRA, RT 01/16/24 * Brenda Ceja RN - 01/15/2024 [...] with no adverse reactions. NATIVIDAD GUERRERO, RT 01/15/24 * Kaylah Najera MD - 01/15/2024 [...] Hour Events: NAEON Subjective/Objective Subjective Doing well except lost her [...] consulted and concern for PJP pneumonia. 01/14 bron culture positive for PJP pneumonia. Patient remains stable 01/14 with improved to borderline resolved thrush, persistent shortness of breath but able to independently care for self within room and no new symptoms or signs of fever. Laboratory studies stable except for trending up bicarb concerning for volume contraction alkalosis. Plan to decrease Lasix to [employer]GER [employer] MARK[employer]ING dose to combat this along with hoping [...] every 7 days to off - Continue MA[employer] valtrex 500mg daily ppx (initially prescribed iso [...] Aspergillus, BC X 2, Anaplasma/Ehrlichia PCR , BRICK CLEANER swab Mycoplasma pneumonia Atovaquone PO 750 mg [...] Metastatic breast cancer Portal hypertension with ascites / liver mets Acute on Chronic malignant ascites. [...] legs and iron deficiency component - continue MA[employer]GER [employer] MARK[employer]ING gabapentin 300mg in the morning and afternoon, 600mg at bedtime. - continue flexeril 5mg BID prn - continue MANAGER [employer] MARKETING venlafaxine 75mg daily - MANAGER PRODUCT MARKETING Zolpidem reordered for difficulty sleeping secondary to cramps - Okay for spot doses of IV Dilaudid for severe pain - Follow-up leg cramps status post decreased Lasix dose RUE DVT and PE Dx 11/09/23 - Resumed MANAGER [employer]ODUCT MARKETING Eliquis 01/11 CHECKLIST: L/D/A: Chest port, nasal [...] of overdiuresis, will decrease furosemide back to MANAGER [employer]ODUCT MARKETING 20mg for tomorrow - though do then [...] results for input(s): PHISTAT, PCOISTAT, POISTAT, POCTCO2, O7UGPELL, POCFIO2 in the last 72 hours. No [...] last 72 hours. No results for input(s): OUNPAAJV97, FOLATE in the last 72 hours. No [...] today and continue with above taper. 2. Levels taper due to less concern for pneumonitis [...] Pulmonary Critical Care Medicine, PGY-4 Available on [facility] 01/14/2024 12:03 Attestation statement: I performed or was present during the knight or critical portions of the visit and participated in the management of the patient. I agree with the findings and plan of care documented in the resident's/fellow's note. Feeling better. Monitoring BAL results. Pavan Bianchi MD * Cesar, Natividad, RT - 01/14/2024 0954 EDT Respiratory Consult/Progress Note Indications for Respiratory [...] 01/14/24 * Michelle Emery DO - 01/14/2024 2323 EDT Medical Oncology Progress Note Service Date: 01/14/24 Admit Date: 01/08/2024 Reason for Admission: 63 y.o. female admitted with hx of metastatic breast cancer with resultant portal hypertension from liver metastases who presented with a chief complaint of Acute on subacute dyspnea and now with a principal diagnosis of drug-induced pneumonitis versus PJP pneumonia. 24 Hour Events: ELLE Subjective/Objective Subjective Doing well this morning. 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 - continue flexeril 5mg BID prn - continue MANAGER PRODUCT MARKETING venlafaxine 75mg daily - MANAGER PRODUCT MARKETING Zolpidem reordered for difficulty sleeping secondary to cramps - Okay for spot doses of IV Dilaudid for severe pain RUE DVT and PE Dx 11/09/23 - Resumed MANAGER PRODUCT MARKETING Eliquis 01/11 CHECKLIST: L/D/A: Chest port, nasal cannula Diet: Regular Diet Code: Full Code VTE Prophylaxis apixaban Discharge Plan Will need to loop back with ID Tuesday, but anticipate likely DC Tuesday if remains stable and will need home O2 Consults Pulmonology, Appreciate recs MICHELLE EMERY DO 01/14/2024 7:25 Internal Medicine Associated attestation - Masha Russell MD - 01/14/2024 6113 EDT Attending Attestation I interviewed and examined [...] CBC: Recent Labs 01/11/24 0614 01/12/24 0533 01/12/241943 WBC 15.81* 13.29* 17.78* NEUTROABS -- -- [...] 5.3* LABALBU 2.5* Recent Labs 01/11/24 0614 01/12/24 0533 01/12/24 1944 WBC 15.81* 13.29* 17.78* RBC 2.17* 2.07* 2.29* HGB 7.6* 7.4* 8.1* HCT 22.9* 22.2* 24.3* MCV 106* 107* 106* MCH 35.0* 35.7* 35.4* MCHC 33.2 33.3 33.3 PLT 232 163 193 NEUTROABS -- -- 15.47* Recent Labs 01/11/24 0800 01/12/24 0533 01/12/24 194 NA 133* 134* 134* K 4.6 4.1 [...] results for input(s): PHISTAT, PCOISTAT, POISTAT, POCTCO2, L6ONTGXL, POCFIO2 in the last 72 hours. No [...] last 72 hours. Recent Labs 01/11/24 0800 [id number] 1,574* FOLATE >24.0 No results for input(s): [...] today and continue with above taper. 2. Levels taper due to less concern for pneumonitis [...] Pulmonary Critical Care Medicine, PGY-4 Available on Epic 01/13/2024 17:23 Associated attestation - Chelsea Logan MD - 01/17/2024 1031 EDT Attestation: I performed or was present during the knight or critical portions of the visit and participated in the management of the patient on 01/13/24. I agree with the findings and plan of care as documented in the resident's/fellow's note. Cehlsea Logan MD 01/17/2024 10:31 * Natividad Guerrero, [...] decreased Response: Mild response, increase subjective per INTERNATIONAL PROJECT MANAGER Pulse: >100 Resp Rate: 18-25 SOB: With [...] no adverse reactions. NATIVIDAD GUERRERO, 01/13/24 * Mariaelena, Errol Willis MD - 01/13/2024 1341 EDT Infectious Disease [...] cm (61) Wt 54.4 kg (120 lb) UpY585% BMI 22.67 kg/m?? Exam: Sitting up in bed in NAD, awake, alert appropriate, responisve Chest - basilar crackles Cor - regular Data Review: Laboratory data reviewed. Pertinent positives include: Labs: WBC/RBC/HGB/HCT/PLT/ANC17.78/2.29/8.1/24.3/193/15.47 (01/12 1944) Microbiology: 11/08 - peritoneum fluid - neg 12/11 - BC X 2 - neg 12/11 - BRICK CLEANER - SARS, Flu, RSV - neg 12/11 - Ascitic fluid - AFB - neg 12/11 - Ascitic fluid - neg 12/19 - Ascitic fluid - neg 01/07 - BRICK CLEANER - SARS, Flu, RSV - neg 01/07 - BRICK CLEANER - expanded respiratory panel - neg 01/08 [...] alveolar macrophages, GMS shows organisms suggestive of Pojoa 01/11 -Anaplasma - negative 01/11 - Histoplasma serum Ag - pending Histoplasma urine Ag - pending Aspergillus Galatomannan serum - pending BRICK CLEANER swab - Mycoplasma pneumoniae PCR - pending [...] Errol Ferrell MD 01/13/2024 13:42 * Lois Venegas, RT - 01/13/2024 0834 EDT Home Oxygen Evaluation Name: Sunshine Subramanian [...] labs - Outpatient Palliative care referral on d/c - tbw pulmonology regarding outpatient oxygen management [...] starting 01/14 or on discharge) - Continue MANAGER PRODUCT MARKETING valtrex 500mg daily ppx (initially prescribed iso [...] Aspergillus, BC X 2, Anaplasma/Ehrlichia PCR , BRICK CLEANER swab Mycoplasma pneumonia [X] started Atovaquone PO [...] post iron infusion without resolution. - continue MANAGER PRODUCT MARKETING gabapentin 300mg in the morning and afternoon, 600mg at bedtime. - continue flexeril 5mg BID prn - continue MANAGER PRODUCT MARKETING venlafaxine 75mg daily - MANAGER PRODUCT MARKETING Zolpidem reordered for difficulty sleeping secondary to cramps - Okay for spot doses of IV Dilaudid for severe pain RUE DVT and PE Dx 11/09/23 - Resumed MANAGER PRODUCT MARKETING Eliquis 01/11 CHECKLIST: L/D/A: Chest port, nasal [...] or should we obtain Aspergillus IgE. Karen nt is immunosuppressed and has been on prednisone [...] drop down by 10mg every week. 2. Levels taper due to less concern for pneumonitis [...] Dr. Logan. Leopoldo Saldana MD PGY-4, Pager: [phone] Pulmonary & Critical Care Medicine Fellow 01/12/2024,16:04 [...] Micro Reviewed Imaging Reviewed Assessment/Plan Assessment Sunshine Padillabertha is a 63 y.o. female with a [...] one month followed by taper - Continue MANAGER PRODUCT MARKETING valtrex 500mg daily ppx (initially prescribed iso [...] Chronic muscle spasms Mood disorder - continue MANAGER PRODUCT MARKETING gabapentin 300mg in the morning and afternoon, 600mg at bedtime. - continue flexeril 5mg BID prn - continue MANAGER PRODUCT MARKETING venlafaxine 75mg daily - MANAGER PRODUCT MARKETING Zolpidem reordered for difficulty sleeping secondary to cramps - Okay for spot doses of IV Dilaudid for severe pain RUE DVT and PE Dx 11/09/23 - Resume MANAGER PRODUCT MARKETING Eliquis CHECKLIST: L/D/A: Chest port, nasal cannula 2 L Diet: Regular Diet Code: Full Code VTE Prophylaxis Eliquis Discharge Plan Pending Clinical Course , likely Tuesday pending bronchoscopy workup Home oxygen assessment and clinical course. Consults Pulmonology, Appreciate recs JACKIE JUAN MD 01/12/2024 7:54 Franca Juan MD PGY-5 [facility] Internal Medicine Available on [employer]. Pager #[phone] Associated attestation - Masha Russell MD - [...] Hospitalist Physician 01/12/24 at 14:38 * Jennifer Govea, RT - 01/11/2024 2017 EDT RESP NOTE: [...] (01/11/24 1149) Midaxillary Line: Not assessed (01/11/24 1149) Muscle Mass Assessment [place]: Severe loss (01/11/24 1149) Clavicle Region: Severe loss (01/11/24 114) Shoulder/Acromion/Clavicle Region: Not assessed (01/11/24 1149) Scapula Region: Not assessed (01/11/24 1149) Hand Region: Severe loss (01/11/24 114) Thigh/Patellar Region: Not assessed (01/11/24 1149) Calf [...] Needs: BEE: 1046kcal @ 54.4kg (MSJ) Kcal: 1921-2304 @ 25-30kcal/kg/bw Protein: 1.5-1.6L Fluid: 71-82g @ [...] [address], CD (Call PAS or use [employer] ([employer]) to page RD covering this unit) * [...] Chronic muscle spasms Mood disorder - continue MANAGER PRODUCT MARKETING gabapentin 300mg in the morning and afternoon, 600mg at bedtime. Watch for encephalopathy - continue flexeril 5mg BID prn - continue MANAGER PRODUCT MARKETING venlafaxine 75mg daily Patient reports months of nightly cramps in hands bilateral forearms feet and calves. Intermittently will be acutely worse and involve her thighs. Never involves the trunk. Reports symptoms as debilitating and interfering with quality of life. - AM ionized calcium (corrected calcium 9.) - Electrolytes normal - Follow-up symptoms after iron infusion 01/10 - MANAGER PRODUCT MARKETING Zolpidem reordered for difficulty sleeping secondary to cramps - Okay for spot doses of IV Dilaudid for severe pain - continue MANAGER PRODUCT MARKETING gabapentin 300mg in the morning and afternoon, 600mg at bedtime. Watch for encephalopathy - continue flexeril 5mg BID prn - continue MANAGER PRODUCT MARKETING venlafaxine 75mg daily Hyponatremia Improved since 01/04, [...] IV Dilaudid if developed overnight VTE Prophylaxis: MANAGER PRODUCT MARKETING Eliquis 5mg bid Held (01/08 AM dose = first held dose) Code: Full Code VTE Prophylaxis Held for Bronchoscopy starting 01/09 TBW PULM TO RESTART 01/11 Discharge Plan Pending Clinical Course , likely Tuesday pending bronchoscopy workup Home oxygen assessment and clinical course. Consults Pulmonology, Appreciate recs KAYLAH YOUNG, MD 01/11/2024 6:53 PGY-1 Resident Internal Medicine [...] Hospitalist Physician 01/12/24 at 7:26 * Anel Schulz RT - 01/11/2024 0542 EDT Respiratory Progress [...] 18 % Lymphocytes Fluid Relative 22 % [place]/Macrophage 46 % Mesothelial Cells Fluid Relative 14 [...] inpatient.-> Follow-up if patient is still using MANAGER PRODUCT MARKETING morphine Portal hypertension with ascites 2/2 liver [...] Dx 11/09/23 -Eliquis held starting a.m.01/08 for [facility] 01/09 Chronic pain Chronic muscle spasms Mood disorder - continue MANAGER PRODUCT MARKETING gabapentin 300mg in the morning and afternoon, 600mg at bedtime. Watch for encephalopathy - continue flexeril 5mg BID prn - continue MANAGER PRODUCT MARKETING venlafaxine 75mg daily CHECKLIST: L/D/A: Chest port, nasal cannula 2 L Diet: Regular Diet Pain: No acute pain, APAP(hepatically dosed) vs consider IV Dilaudid if developed overnight VTE Prophylaxis: MANAGER PRODUCT MARKETING Eliquis 5mg bid Held (01/08 AM dose [...] for assessment tomorrow. ABEL Sarah, M. Ed. [employer] Social Work and Case Management * Chen Montoya RN - 01/09/2024 0853 EDT Procedure: Paracentesis Patient arrived from [facility] to IR 26 at 0851. Patient name [...] right abdomen with duraprep disinfecting solution by [facility] in the usual sterile fashion in [...] in stable condition. Discharge instructions placed in [facility] to be reviewed with patient. * Kaylah [...] Dx 11/09/23 -Eliquis held starting a.m.01/08 for [facility] 01/09 Chronic pain Chronic muscle spasms Mood disorder - continue MANAGER PRODUCT MARKETING gabapentin 300mg in the morning and afternoon, 600mg at bedtime. Watch for encephalopathy - continue flexeril 5mg BID prn - continue MANAGER PRODUCT MARKETING venlafaxine 75mg daily CHECKLIST: L/D/A: Chest port, nasal cannula 2 L Diet: N.p.o. at midnight for bronchoscopy Pain: No acute pain today, consider IV Dilaudid if developed overnight VTE Prophylaxis: MANAGER [employer]ODUCT MARKETING Eliquis 5mg bid Held (01/08 AM dose [...] hard she throws up. Sputum production minimal, 09/17 mornings has a nickel sized phlegm but [...] Has been in contact extensively with her grease rack worker, hydrotherapist, and oncologist about recent symptoms: - 11/15 [...] radiation and shah) a. Ultrasound performed in [place] identifying an irregular heterogeneous soft tissue mass measuring 1.2 x 1.2 x 1.5 cm. b. 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 HER-2 1+ by IHC. ANNE MARIE revealed [...] breast tumor 07/07/17 and placement of tissue optical model maker and tester. 1.9 cm tumor at time ofsurgery, well differentiated, with LVI present, and negative margins. G. Biopsy left cervical LN 02/11/20 - consistent with metastatic adenocarcinoma consistent with breast primary H. Fulvestrant initiated 03/06/20; abemaciclib initiated 03/31/20 discontinued 06/01 due to diarrhea; palbociclib initiated March 2021 I. Capecitabine initiated December 2021 J. Y90 infusion to liver by Dr Moya 04/08/22 and again 05/14/22 K. 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 Lung biopsy 06/22/23 - adenocarcinoma consistent with metastatic breast cancer; ER+ >90%, MD < 5%; HER2 2+ equivocal; [place] FISH testing negative M. Elacestrant initiated early [...] fussion no issues currently 08/25/20 Breast cancer ([facility]) 11/2003 DCIS - right breast Breast cancer, right ([facility]) Depression 08/25/20 well controlled Environmental allergies Exercise involving walking GERD (gastroesophageal reflux disease) well controlled 08/25/20 H/O spinal fusion L3-S1 spinal fusion 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 History of general anesthesia Immunosuppressed status ([facility]) 12.11.21 Breast cancer stage 4 Liver disease 10.12.23 Acsitiesm Lumbar radicular syndrome Nausea & vomiting Numbness Pulmonary embolism ([facility]) 11.11.23 Reactive airway disease 09.12.23 Shortness of [...] - [place] no complications BREAST SURGERY 08/2018 optical model maker and tester placed right breast - [place] no complications CARPAL TUNNEL RELEASE 200705/07/2019 beir block - no complications EYE SURGERY Partially detached retina FOOT SURGERY 05/2021 right big toe fused, right little toe screw FRACTURE SURGERY Morrell fractures in both feet,right big toe fusion LIPOMA RESECTION 200005/07/2019 [place] no complications MD INSJ/RPLCMT BREAST IMPLANT Feb MASTECTOMY Bilateral 05/30/2019 Exchange right tissue optical model maker and tester to silicone implant, exchange of left implant for matching performedby Tylor Boss MD at [facility] OR Social History Tobacco Use Smoking status: [...] pneumonia. Differential consideration would include drug reaction. [id number] CT CHEST W CONTRAST Result Date: 01/05/2024 [...] spleen with a large amount of ascites. [id number] IR PARACENTESIS-RADIOLOGY Result Date: 01/03/2024 Successful, uncomplicated paracentesis using sonographic guidance yielding 3 L of fluid. LUNA Arguelles, PA-C Interventional Radiology I have personally reviewed the images and the above interpretation and agree with the findings. [id number] Assessment Sunshine Subramanian is a 63 y.o. [...] mets to bone and liver - hold MANAGER PRODUCT MARKETING prednisone 10mg daily (rx'ed 11/15 for energy/appetite) - continue valtrex 500mg daily Portal hypertension with ascites 2/2 liver mets Last para 01/02, feels like her ascites has reaccumulated - consider para in AM - continue MANAGER PRODUCT MARKETING lasix 20mg daily, spironolactone 100mg daily Hyponatremia Improved since 01/04 Unclear etiology, possibly SIADH iso PNA or poor PO intake or volume overload - as is improving, CTM RUE DVT and PE Dx 11/09/23 - given recency of diagnosis, will continue MANAGER PRODUCT MARKETING eliquis 5mg BID. May need to be held in the future for bronch/para/etc but will continue for now given uncertainty of plan. Chronic pain Chronic muscle spasms Mood disorder - continue MANAGER PRODUCT MARKETING gabapentin 300mg in the morning and afternoon, 600mg at bedtime. Watch for encephalopathy as this was the dosage she was on when she was admitted 12/11-3 - continue flexeril 5mg BID prn - continue MANAGER PRODUCT MARKETING venlafaxine 75mg daily VTE Prophylaxis Pharmacologic Prophylaxis: MANAGER PRODUCT MARKETING eliquis 5mg bid Code: Full Code Discharge [...] to verify the correct patient, procedure, equipment, product support specialist and site/side marked as required. [...] 11:40 * Chelsea Logan MD - 01/11/2024 9700 EDT Procedure Performed Bronchoscopy - Bronchoscopy, rigid [...] removed - BELKIS BAL Chelsea Logan MD [facility] Pulmonary/Critical Care Attending pager: [phone] * Griffin, David Rowley MD - 01/09/2024 0442 EDT INTERVENTIONAL RADIOLOGY BRIEF PROCEDURE NOTE Radiologist: [...] recommendations. Roosevelt Moya MD Interventional Radiologist Pager #[phone] documented in this encounter Consult Notes * [...] family as possible being at home on [employer] and swimming with her dog. At the [...] consulted and concern for PJP pneumonia. 01/14 [facility] culture positive for PJP pneumonia. Patient wascontinuing [...] visit: Sendy and palliative care (Mandeep Mayfield NP and myself) They have been trying to [...] very upbeat and positive, proactive real caregiver Spiritual/Rastafari/Existential Needs: [place]/Beliefs: Very spiritual Importance of spirituality: Very important Community (sienna or otherwise): Not sure Action (how to integrate into health care): Appreciates meeting with our manager presentation Symptom Inventory: Comments Lack of Energy Present, [...] primary team including the providers, nurses, and mental health case manager in discussion of the care plan. Information [...] message for us during business hours at [phone] I spent 80 minutes in [id number] with 80minutes in discussion, counseling, and explanation of advance directives and (if done) filling out forms pertaining to the advance directives, excluding timespent in the evaluation and management service. Antoinette Estes NP Palliative Care * Errol Ferrell MD - 01/12/2024 1453 EDT Infectious Disease Consult Note Admit Date: [...] exercise, Allergy, Arthritis, Back pain, Breast cancer ([facility]) (11/2003),Breast cancer, right ([facility]), Depression, Environmental allergies, Exercise involving walking, GERD (gastroesophageal reflux disease), H/O spinal fusion, Herpes simplex virus (HSV) infection, History of general anesthesia, Immunosuppressed status ([facility]) (12.11.21), Liver disease (10.12.23), Lumbar radicular syndrome, Nausea & vomiting, Numbness, Pulmonary embolism (HCC-CMS) (11.11.23), Reactive airway disease (09.12.23), Shortness of breath (09.12.23), Swelling (11.11.23), and Wears glasses. From Dr. Vinson note - 01/06/24 - Oncologic History Metastatic breast cancer presenting as a right breast recurrence with skin changes at lateral aspect of her left implant spring 2016 after treatment of ER+ DCIS (declined radiation and shah) a. Ultrasound performed in [place] identifying an irregular heterogeneous soft tissue mass measuring 1.2 x 1.2 x 1.5 cm. b. 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 HER-2 1+ by IHC. ANNE MARIE revealed [...] breast tumor 07/07/17 and placement of tissue optical model maker and tester. 1.9 cm tumor at time ofsurgery, well [...] consistent with metastatic breast cancer; ER+ >90%, MD < 5%; HER2 2+ equivocal; [place] FISH testing negative M. Elacestrant initiated early [...] surgery. Medications: MAR reviewed. 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 Exam: Sitting up in [...] reviewed. Pertinent positives include: Labs: WBC/RBC/HGB/HCT/PLT/ANC13.29/2.07/7.4/22.2/163/-- (01/11 05) Microbiology: 11/08 - peritoneum fluid - neg 12/11 - BC X 2 - neg 12/11 - BRICK CLEANER - SARS, Flu, RSV - neg 12/11 - Ascitic fluid - AFB - neg 12/11 - Ascitic fluid - neg 12/19 - Ascitic fluid - neg 01/07 - BRICK CLEANER - SARS, Flu, RSV - neg 01/07 - BRICK CLEANER - expanded respiratory panel - neg 01/08 [...] Recommendations: Urine histo antigen Serum histo antigen ([place] - HIBAG) Serum Aspergillus galactomannan ([place] ASPAG) BC X 2 Anaplasma/Ehrlichia PCR BRICK CLEANER swab for Mycoplasma pneumonia PCR ([place] MPRP) Would consider Atovaquone PO 750 mg [...] attestation - Chelsea Logan MD - 01/09/2024 1528 EDT Concern for Enhertu pneumonitis vs Infectious [...] from the original note were not included. [facility] Emergency Department Note Emergency Department Visit [...] pneumonia. Differential consideration would include drug reaction. [id number] ED Course Relevant Data as of 01/08/24 1837 Sun Jan 08, 2024 1701 EKG 12 lead The EKG was independently reviewed and interpreted by me. Sinus tachycardia 108 bpm. [DW] 1717 I, Micky Sebastian MD, reviewed this case with the Advanced Practice Provider. I personally made/approved the management plan for this patient and take responsibility for that plan, with its inherent risk of complications and/or morbidity or mortality of patient management. I evaluated this patient [id number] and provided a substantive portion of the [...] [AC] Relevant Data User Index [AC] Trinh Alcocer PA-C [DW] Micky Sebastian MD The following problems were addressed: Final diagnoses: Shortness of breath Anemia, unspecified type Chief complaint: Shortness of breath ALEISHA Subramanian is a 63 y.o. female who [...] Care - Tawana Berry RN - 01/19/2024 1558 EDT Nursing Discharge Note D: Patient noted [...] Care - Aruna Law RN - 01/18/2024 1829 EDT Problem: Daily Care Plan Goals Goal: [...] Care - Criselda Cisneros RN - 01/17/2024 1935 EDT Problem: Daily Care Plan Goals Goal: [...] shift and with movement, needed 4-5L NC. notified and pt tested for resp/covid. Results came back neg. Pt was a little light headed this morning so we made her a contact guard but she was back to baseline ambulation the second half of day. Para site was leaking through an abd pad every couple hours, notified. Stretchy foam tape obtained from different [...] or nausea reported. Action: Medications administered per MAR. Monitored O2 needs throughout night. Clustered care [...] leg cramping for which flexeril was provided. [facility] AMY PEREIRA RN * Plan of Care [...] continue to monitor and intervene as needed. BABMI BLUM RN 01/11/2024 17:11 * Plan of [...] 01/11/2024 7:30 * Plan of Care - Zachariah [place] - 01/10/2024 1424 EDT Initial Case Management/Social Work Assessment and Discharge Plan/Readmission Risk Assessment REASON FOR ADMISSION: Shortness of breath Patient understands reason for admission: (P) Yes PATIENT INFO VERIFIED: (P) PCP, Contact Info, Address Type of housing (single family, condo, apartment, halfway, single room occupancy, [facility] funded hotel room, group group home) - [facility] Who does the patient live with? spouse Does the patient have access to their own bedroom/bathroom/kitchen - or is it shared with others? own Name of housing complex (ex [employer] [facility], [facility], etc)- Housing Authority/Managing Organization - Community Care Providers (case folder, [facility] nurse, etc) name and contact information- LIVING [...] Discharge on IV Antibiotics: (P) No CULTURAL, PRESYBETERIAN and/or LANGUAGE factors affecting health care/discharge planning: [...] Services: (P) None DME Provider: Pharmacy: [id number] - [place], [place] - [address] [facility] [id number] [place] - [address] [place] [address] [facility] - [place], [place] - [address] [address] [facility]/pharmacy #[id number] - [place] [address] [facility] [address] [facility] - [facility] AT Portal to Registered [facility] [address] [facility] [address] [id number] [facility] ([facility]) - [place], [place] - [address] [facility] [address] [id number] - [place], [place] - [address] [facility] [address] [facility] [place], [place] - [address] [id number] [address] [facility] [address] Home Health: NA Other: POST HOSP[facility] TRANSITION [...] up with home oxygen. ABEL Mims [employer] [id number] or avail by [employer] Zachariah [place] 01/10/2024 14:25 * Plan of Care - Bambi Blum RN - 01/10/2024 1106 EDT Data: Pt was admitted on 01/07 [...] complaints of respiratory distress. Report called to [address] Action: Pt declining full body assessment prior to transport. Vitals obtained prior, wnl. Pt on 2L NC 02 sats> 92%. Repositioning encouraged. Items packed for transport. Response: Pt accepting of care. Items packed for transport. 02 tank obtained obtained and set. Pt transported to [place] [address] via patient support, RR even and unlabored at time of transport from [facility] at 1999. ESHA LEE RN 01/09/2024 20:08 * Plan of Care - Esha Lee RN - 01/09/2024 7286 EDT Problem: Daily Care Plan Goals Goal: [...] acute changes. Pt to be transferred to [place] [address]. Action: Assessed pt, and monitored respiratory status, [...] Care - Mariaa Funes RN - 01/09/2024 5102 EDT Problem: SAFETY Goal: Free From Accidental [...] Appointment [facility] Interventional Radiology Unit [address] [place], [place] [phone] 04/02/2024 15:[address] [facility] Surgical Oncology - [address] [phone] Adolfo Carreno MD 111 [facility], Level 2 [place] [phone] 04/05/2024 9:30 EDT Telemedicine [facility] - [facility] Palliative Care Services [address] [place], [place] [address] Chichi Woods MD 111 [facility] [place] [address] [place] [phone] 04/11/2024 15:00 EDT Telemedicine [facility] - [facility] [address] [place], [place] [phone] Alisson Carreon MD [address] [place] [address], [facility] 2 [place] [phone] 04/13/2024 13:30 EDT Appointment [facility] - [address] [phone] 04/13/2024 14:00 EDT Appointment [facility] - [address] [phone] 04/16/2024 10:00 EST Telemedicine [facility] - [facility] Palliative Care Services [address] [place] [phone] Chichi Woods MD [address] [place] [address], [address] [phone] 04/24/2024 9:00 EST Appointment [facility] Radiology CT Outpatient - [address] [phone] 04/24/2024 11:[address] [facility] Breast Imaging - [address] [phone] 04/27/2024 12:00 EST Appointment [facility] - [address] [phone] 05/02/2024 15:00 EST Telemedicine [facility] - [address] [phone] Alisson Carreon MD [address] [place] [address], Level 2 [place] [phone] 05/04/2024 10:[address] [facility] Cardiology - [address] [place], [place] [phone] 05/04/2024 11:30 EST Appointment [facility] [address] [address] 05/04/2024 12:00 EST Appointment [facility] [address] [address] 06/12/2024 13:00 EST Appointment [facility] Center Radiology CT - [address] [address] Scheduled Referrals Name Type Priority Associated Diagnoses Order Schedule AMB CONS/FOLLOW UP PALLIATIVE CARE SERVICES Outpatient Referral Routine/Next Available Malignant neoplasm of female breast, unspecified estrogen receptor status, unspecified laterality, unspecified site of breast ([facility]) [C50.919] Primary malignant neoplasm of breast with metastasis ([facility]) Encounter for palliative care Expected: 02/12/2024 (Approximate), [...] laterality, unspecified site of breast ([facility]) [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, unspecified laterality, 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[facility]) Expected: 01/26/2024 (Approximate), Expires: 01/18/2025 AMB CONS/FOLLOW UP PALLIATIVE CARE SERVICES Outpatient Referral Routine/Next Available Malignant neoplasm of female breast, unspecified estrogen receptor status, unspecified laterality, unspecified site of breast ([facility]) [C50.919] Expected: 02/19/2024 (Approximate), Expires: 01/18/2025 documented [...] BLOOD Routine 01/12/2024 19:44 EDT MISCELLANEOUS TEST, [place] Today 01/12/2024 19:44 EDT MISCELLANEOUS TEST, [place] Routine 01/12/2024 19:44 EDT MISCELLANEOUS TEST, [place] Routine 01/12/2024 19:44 EDT COMPLETE BLOOD COUNT [...] BRONCHOSCOPY PROCEDURE Routine 01/11/2024 16:53 EDT NON UTILITY PORTER/FNA CYTOLOGY Routine 01/11/2024 16:50 EDT PNEUMOCYSTIS JIROVECI, [...] liters of ascitic fluid from the abdomen. [id number] Narrative 01/25/2024 15:38 EDT Ultrasound-guided paracentesis; 01/25/2024 [...] anesthesia, and real-time ultrasound guidance, a 5 Arabic sheath needle was advanced into the pocket [...] this procedure was 0. Resulting Agency Comment [id number] Procedure Note Mustapha Nguyen MD - 01/25/2024 [...] lidocaine anesthesia, and real-timeultrasound guidance, a 5 Arabic sheath needle was advanced into the pocketof [...] liters of ascitic fluid from the abdomen. [id number] Jackie Juan MD [facility] IR ORDERABLES * (ABNORMAL) COMPLETE BLOOD COUNT (01/19/2024 6:08 EDT) WBC 11.96 4.00 - 12.40 K/cmm 01/19/2024 6:22 [facility] RBC 2.25(L) 3.86 - 5.04 M/cmm 01/19/2024 6:22 [facility] Hemoglobin 8.3(L) 11.6 - 15.2 g/dL 01/19/2024 6:22 [facility] HCT 25.8(L) 34.9 - 44.4 % 01/19/2024 6:22 [facility] MCV 115(H) 81 - 98 fL 01/19/2024 6:22 [facility] MCH 36.9(H) 26.7 - 33.3 pg 01/19/2024 6:22 [facility] MCHC 32.2 32.1 - 35.9 g/dL 01/19/2024 6:22 [facility] RDW-CV 24.4(H) <14.7 % 01/19/2024 6:22 [facility] RDW-SD 101.2(H) <50.4 fl 01/19/2024 6:22 [facility] PLT 127(L) 141 - 377 K/cmm 01/19/2024 6:22 T [facility] MPV 10.5 9.5 - 12.7 fL 01/19/2024 6:22 T [facility] Blood VENOUS BLOOD / Unknown Venipuncture / Unknown 01/19/2024 6:08 EDT 01/19/2024 6:12 EDT Masha Russell MD HEMATOLOGY & PF4 ORD ERABLES [facility] [address] [place] [address] * (ABNORMAL) BASIC METABOLIC PANEL (BMP) (01/19/2024 6:08 EDT) Sodium 134(L) 136 - 145 mmol/L 01/19/2024 7:03 [facility] Potassium 4.4 3.5 - 5.0 mmol/L 01/19/2024 7:03 [facility] Chloride 103 96 - 110 mmol/L 01/19/2024 7:03 [facility] CO2 Total 29 22 - 32 mmol/L 01/19/2024 7:03 [facility] Anion Gap 2(L) 5 - 14 mmol/L 01/19/2024 7:03 [facility] Glucose 69(L) 70 - 99 mg/dl 01/19/2024 7:03 [facility] Calcium 8.8 8.5 - 10.5 mg/dL 01/19/2024 7:03 [facility] BUN 21 10 - 26 mg/dL 01/19/2024 7:03 [facility] Creatinine 0.57 0.52 - 1.04 mg/dL 01/19/2024 7:03 [facility] eGFR 103 >60 mL/min/1.73 m2 01/19/2024 7:03 EDT [facility] Blood VENOUS BLOOD / Unknown Venipuncture / Unknown 01/19/2024 6:08 EDT 01/19/2024 6:12 EDT Jaison Cevallos MD CHEMISTRY & BLOOD GA S ORDERABLES Performing Organization Address City/[facility] Co de Phone Number [facility] [address] [place] [address] * (ABNORMAL) CA 27.29 (01/19/2024 6:08 EDT) CA 27.29 179.6(H) <38.0 U/mL 01/20/2024 8:50 EDT [facility] Comment: NOTE: Serum CA 27.29 concentration should not be interpreted as absolute evidence for the presence or absence of malignant disease. Assayed on Siemens Cashuallyaur XPT using chemiluminescent technology. ??Values obtained by using different assay methods cannot be used interchangeably. Blood VENOUS BLOOD / Unknown Venipuncture / Unknown 01/19/2024 6:08 EDT 01/19/2024 6:12 EDT Dalila Painting MD CHEMISTRY & BLOOD GA S ORDERABLES Performing Organization Address City/[facility] Co de Phone Number [facility] [address] [place] [address] * FLUID DIFFERENTIAL (01/18/2024 14:20 EDT) Neutrophils Fluid Relative 31 % 01/18/2024 17:19 EDT [facility] Lymphocytes Fluid Relative 12 % 01/18/2024 17:19 EDT [facility] [place]/Macrophage 53 % 17:19 EDT [facility] Mesothelial Cells Fluid Relative 4 % 01/18/2024 17:19 EDT [facility] Fluid ASCITIC FLUID / Unknown 01/18/2024 14:20 EDT 01/18/2024 14:51 EDT Dalila Painting MD GEN LAB UNIT COLLECT ORDERABLES Performing Organization Address [facility] Co de Phone Number [facility] [address] [place] [address] * FLUID CELL COUNT (01/18/2024 14:20 EDT) RBC, Fluid <10,000 /cmm 01/18/2024 15:00 EDT [facility] Nucleated Cells, fluid 207 /cmm 01/18/2024 15:00 EDT [facility] Comment, fluid Clear Yellow 01/18/2024 15:00 EDT [facility] Fluid ASCITIC FLUID / Unknown 01/18/2024 14:20 EDT 01/18/2024 14:51 EDT Dalila Painting MD HEMATOLOGY & PF4 ORD ERABLES Performing Organization Address [facility] de Phone Number [facility] [address] [place] [address] * US LOWER VENOUS DUPLEX (DVT) RIGHT [...] Medical History Anticoagulation therapy. Kaylah Vieira MD [facility] US VASCULAR ORD ERABLES * (ABNORMAL) BASIC METABOLIC PANEL (BMP) (01/18/2024 5:46 EDT) Sodium 134(L) 136 - 145 mmol/L 01/18/2024 6:51 [facility] Potassium 4.4 3.5 - 5.0 mmol/L 01/18/2024 6:51 [facility] Chloride 100 96 - 110 mmol/L 01/18/2024 6:51 [facility] CO2 Total 30 22 - 32 mmol/L 01/18/2024 6:51 [facility] Anion Gap 4(L) 5 - 14 mmol/L 01/18/2024 6:51 [facility] Glucose 98 70 - 99 mg/dl 01/18/2024 6:51 [facility] Calcium 8.7 8.5 - 10.5 mg/dL 01/18/2024 6:51 [facility] BUN 23 10 - 26 mg/dL 01/18/2024 6:51 [facility] Creatinine 0.62 0.52 - 1.04 mg/dL 01/18/2024 6:51 [facility] eGFR 101 >60 mL/min/1.73 m2 01/18/2024 6:51 [facility] Blood BLOOD SAMPLE TAKEN FROM CENTRAL LINE / Unknown Port / Unknown 01/18/2024 5:46 EDT 01/18/2024 5:54 EDT Jaison Cevallos MD CHEMISTRY & BLOOD GA S ORDERABLES [facility] [address] [place] [phone] * (ABNORMAL) COMPLETE BLOOD COUNT (01/17/2024 4:16 EDT) WBC 13.71(H) 4.00 - 12.40 K/cmm 01/17/2024 4:31 [facility] RBC 2.05(L) 3.86 - 5.04 M/cmm 01/17/2024 4:31 [facility] Hemoglobin 7.6(L) 11.6 - 15.2 g/dL 01/17/2024 4:31 [facility] HCT 23.4(L) 34.9 - 44.4 % 01/17/2024 4:31 [facility] MCV 114(H) 81 - 98 fL 01/17/2024 4:31 [facility] MCH 37.1(H) 26.7 - 33.3 pg 01/17/2024 4:31 [facility] MCHC 32.5 32.1 - 35.9 g/dL 01/17/2024 4:31 [facility] RDW-CV 24.9(H) <14.7 % 01/17/2024 4:31 [facility] RDW-SD 104.2(H) <50.4 fl 01/17/2024 4:31 [facility] PLT 131(L) 141 - 377 K/cmm 01/17/2024 4:31 [facility] MPV 11.0 9.5 - 12.7 fL 01/17/2024 4:31 [facility] Blood BLOOD SAMPLE TAKEN FROM CENTRAL LINE / Unknown Port / Unknown 01/17/2024 4:16 EDT 01/17/2024 4:25 EDT Masha Russell MD HEMATOLOGY & PF4 ORD ERABLES [facility] [address] [place] [address] * (ABNORMAL) BASIC METABOLIC PANEL (BMP) (01/17/2024 4:16 EDT) Sodium 135(L) 136 - 145 mmol/L 01/17/2024 4:56 [facility] Potassium 3.8 3.5 - 5.0 mmol/L 01/17/2024 4:56 [facility] Chloride 97 96 - 110 mmol/L 01/17/2024 4:56 [facility] CO2 Total 36(H) 22 - 32 mmol/L 01/17/2024 4:56 [facility] Anion Gap 2(L) 5 - 14 mmol/L 01/17/2024 4:56 EDT [facility] Glucose 111(H) 70 - 99 mg/dl 01/17/2024 4:56 EDT [facility] Calcium 8.4(L) 8.5 - 10.5 mg/dL 01/17/2024 4:56 EDT [facility] BUN 22 10 - 26 mg/dL 01/17/2024 4:56 EDT [facility] Creatinine 0.56 0.52 - 1.04 mg/dL 01/17/2024 4:56 EDT [facility] eGFR 103 >60 mL/min/1.73 m2 01/17/2024 4:56 T [facility] Blood BLOOD SAMPLE TAKEN FROM CENTRAL LINE / Unknown Port / Unknown 01/17/2024 4:16 EDT 01/17/2024 4:29 EDT Jaison Cevallos MD CHEMISTRY & BLOOD GA S ORDERABLES [facility] [address] [place] [address] * SARS COV2, FLU A/B, RSV DETECT BY PCR (01/16/2024 16:41 EDT) FLU A RNA Result (FLARES) Negative Negative 01/16/2024 17:50 EDT [facility] FLU B RNA Result (FLBRES) Negative Negative 01/16/2024 17:50 EDT [facility] RSV RNA Result (RSVRES) Negative Negative 01/16/2024 17:50 EDT [facility] COVID-19 rt-PCR Result Negative Negative 01/16/2024 17:50 EDT [facility] Comment: Negative results do not preclude 2019-nCoV infection and should not be used as the sole basis for treatment or other patient management decisions. Negative results must be combined with clinical observations, patient history, and epidemiological information. Performed on the [employer] GeneXpert Instrument Swab NASOPHARYNGEAL STRUCTURE / Unknown Swab / Unknown 01/16/2024 16:41 EDT 01/16/2024 16:50 EDT Dalila Painting MD MICROBIOLOGY - GENER AL ORDERABLES Performing Organization Address [facility] Co de Phone Number [facility] [address] [place] [address] * (ABNORMAL) DIFFERENTIAL, AUTOMATED MANUAL (01/16/2024 8:35 EDT) % Neutrophils 88.6 Not Indicated % 01/16/2024 9:23 EDT [facility] % Lymphocytes 7.0 Not Indicated % 01/16/2024 9:23 EDT [facility] % Monocytes 4.4 Not Indicated % 01/16/2024 9:23 T [facility] Absolute Neutrophils 22.66(H) 2.20 - 8.85 K/cmm 01/16/2024 9:23 EDT [facility] Absolute Lymphocytes 1.79 1.09 - 3.30 K/cmm 01/16/2024 9:23 EDT [facility] Absolute Monocytes 1.13(H) 0.10 - 0.80 K/cmm 01/16/2024 9:23 T [facility] Type of Differential: Manual 01/16/2024 9:23 T [facility] Blood BLOOD SAMPLE TAKEN FROM CENTRAL LINE / Unknown Port / Unknown 01/16/2024 8:35 EDT 01/16/2024 8:43 EDT Kaylah Vieira MD HEMATOLOGY & PF4 OR DERABLES Performing Organization Address City/[facility]/ZIP Co de Phone Number [facility] [address] [place] [address] * (ABNORMAL) COMPLETE BLOOD COUNT AND DIFFERENTIAL (01/16/2024 8:35 EDT) WBC 25.58(H) 4.00 - 12.40 K/cmm 01/16/2024 8:58 EDT [facility] RBC 2.27(L) 3.86 - 5.04 M/cmm 01/16/2024 8:58 [facility] Hemoglobin 8.4(L) 11.6 - 15.2 g/dL 01/16/2024 8:58 T [facility] HCT 25.1(L) 34.9 - 44.4 % 01/16/2024 8:58 [facility] MCV 111(H) 81 - 98 fL 01/16/2024 8:58 [facility] MCH 37.0(H) 26.7 - 33.3 pg 01/16/2024 8:58 [facility] MCHC 33.5 32.1 - 35.9 g/dL 01/16/2024 8:58 [facility] RDW-CV 25.0(H) <14.7 % 01/16/2024 8:58 [facility] RDW-SD 99.6(H) <50.4 fl 01/16/2024 8:58 [facility] PLT 198 141 - 377 K/cmm 01/16/2024 8:58 [facility] MPV 10.8 9.5 - 12.7 fL 01/16/2024 8:58 [facility] Nucleated Red Blood Cells 1(H) <=0 /100WBC'S 01/16/2024 8:58 [facility] Blood BLOOD SAMPLE TAKEN FROM CENTRAL LINE / Unknown Port / Unknown 01/16/2024 8:35 EDT 01/16/2024 8:43 EDT Kaylah Vieira MD PACKAGES & DNA PROB E ORDERABLES [facility] [address] [place] [address] * XR CHEST 2 VIEWS (01/16/2024 7:12 EDT) Anatomical Region Laterality Modality Computed Radiogr aphy 01/16/2024 8:50 EDT Impressions 01/16/2024 8:50 EDT 1. ??No acute abnormality. 2. ??Improving bilateral linear atelectasis. 3. ??Right chest port and catheter. I have personally reviewed the images and the above interpretation and agree with the findings. [id number] Narrative 01/16/2024 8:50 EDT XR CHEST 2 [...] overlying the lumbar spine. Resulting Agency Comment [id number] Procedure Note Evan Garcia MD - 01/16/2024 [...] the above interpretation andagree with the findings. [id number] James Izaguirre MD IMG DIAGNOSTIC AMANDA GING ORDERABLES * (ABNORMAL) BACTERIAL CULTURE, URINE (01/16/2024 6:39 EDT) Organism ID 10, 000 to 100,000 CFU/ml Enterococcus faecalis(A) VITEK SUSCEPTIBILITY 01/19/2024 8:06 EDT [facility] Comment: Ampicillin or amoxicillin are the drugs of choice for treating uncomplicated cystitis caused by Enterococcus (including VRE). Organism ID 10, 000 to 100,000 CFU/ml Usual urogenital antonia 01/19/2024 8:06 EDT [facility] Urine URINE SPECIMEN OBTAINED BY CLEAN CATCH PROCEDURE / Unknown Urine Collect / Unknown 01/16/2024 6:39 EDT 01/16/2024 6:54 EDT Narrative Organism Antibiotic Method Susceptibility Enterococcus faecalis Nitrofurantoin VITEK SUSCEPTIBIL ITY <=16 ug/mL: Susceptible Enterococcus faecalis Vancomycin VITEK SUSCEPTIBILIT Y 1 ug/mL: Susceptible James Izaguirre MD MICROBIOLOGY - GEN ERAL ORDERABLES Performing Organization Address City/State/[facility] Co de Phone Number [facility] [address] [place] [address] * (ABNORMAL) UA CHEMICAL & SEDIMENT + REFLEX TO CULTURE (01/16/2024 6:39 EDT) Color UA Yellow Colorless, Yellow 01/16/2024 6:54 EDT [facility] Clarity UA Clear Clear 01/16/2024 6:54 EDT [facility] Glucose UA Negative Negative mg/dL 01/16/2024 6:54 T [facility] Bilirubin UA 1+(A) Negative 01/16/2024 6:54 T [facility] Ketones UA Trace(A) Negative 01/16/2024 6:54 T [facility] Specific [place], Urine 1.022 1.001 - 1.030 01/16/2024 6:54 T [facility] Blood UA Negative Negative 01/16/2024 6:54 EDT [facility] Urobilinogen UA 1.0 0.2-1.0 mg/dL mg/dL 01/16/2024 6:54 EDT [facility] Nitrite UA Negative Negative 01/16/2024 6:54 EDT [facility] Leukocyte Esterase UA 2+(A) Negative 01/16/2024 6:54 T [facility] Protein UA Trace(A) Negative mg/dL 01/16/2024 6:54 EDT [facility] pH, UA 6.0 <8.5 01/16/2024 6:54 T [facility] Urine RBC Count, Auto 0 - 2 0 - 2 Cells/HPF 01/16/2024 6:54 T [facility] Urine WBC Count, Auto 10 - 50(A) 0 - 3 Cells/HPF 01/16/2024 6:54 T [facility] Urine Squamous Count, Auto None Seen None Seen Cells/HPF 01/16/2024 6:54 [facility] Urine Hyaline Cast Count, Auto <=10 <=10 Casts/LPF 01/16/2024 6:54 [facility] Urine Bacteria Count, Auto None Seen None Seen Bacteria/HP F 01/16/2024 6:54 [facility] Urine URINE SPECIMEN OBTAINED BY CLEAN CATCH PROCEDURE / Unknown Urine Collect / Unknown 01/16/2024 6:39 EDT 01/16/2024 6:44 EDT Narrative [facility] - 01/16/2024 6:54 EDT A Urine Culture test has been reflexively ordered based on result criteria from the Urine Sediment Analysis. Urine Sediment Analysis results are unreliable on urines that are unrefrigerated for >2 hrs or refrigerated >8 hrs. James Izaguirre MD URINALYSIS ORDERAB LES [facility] [address] [place] [address] * BACTERIAL CULTURE, BLOOD (01/16/2024 6:28 EDT) Organism ID No Growth at 5 days 01/21/2024 6:45 EDT [facility] Blood VENOUS BLOOD / Unknown Venipuncture / Unknown 01/16/2024 6:28 EDT 01/16/2024 6:35 EDT James Izaguirre MD MICROBIOLOGY - GEN ERAL ORDERABLES Performing Organization Address City/[facility]/ZIP Co de Phone Number [facility] [address] [place], [place] [phone] * BACTERIAL CULTURE, BLOOD (01/16/2024 6:28 EDT) Organism ID No Growth at 5 days 01/21/2024 6:45 EDT [facility] Blood VENOUS BLOOD / Unknown Venipuncture / Unknown 01/16/2024 6:28 EDT 01/16/2024 6:35 EDT James Izaguirre MD MICROBIOLOGY - GEN ERAL ORDERABLES Performing Organization Address [facility]/ZIP Co de Phone Number [facility] [address] [place], [place] [phone] * BACTERIAL CULTURE, BLOOD (01/16/2024 5:46 EDT) Organism ID No Growth at 5 days 01/21/2024 6:01 EDT [facility] Blood BLOOD SAMPLE TAKEN FROM CENTRAL LINE / Unknown Port / Unknown 01/16/2024 5:46 EDT 01/16/2024 5:53 EDT James Izaguirre MD MICROBIOLOGY - GEN ERAL ORDERABLES Performing Organization Address City/[facility]/ZIP Co de Phone Number [facility] [address] [place] [address] * (ABNORMAL) BASIC METABOLIC PANEL (BMP) (01/16/2024 5:19 EDT) Sodium 132(L) 136 - 145 mmol/L 01/16/2024 5:59 EDT [facility] Potassium 3.9 3.5 - 5.0 mmol/L 01/16/2024 5:59 EDT [facility] Chloride 92(L) 96 - 110 mmol/L 01/16/2024 5:59 EDT [facility] CO2 Total 35(H) 22 - 32 mmol/L 01/16/2024 5:59 EDT [facility] Anion Gap 5 5 - 14 mmol/L 01/16/2024 5:59 EDT [facility] Glucose 81 70 - 99 mg/dl [facility]/16[facility]2024 5[facility] Calcium 8.7 8.5 - 10.5 mg/dL 01/16/2024 5:59 [facility] BUN 22 10 - 26 mg/dL 01/16/2024 5:59 [facility] Creatinine 0.71 0.52 - 1.04 mg/dL 01/16/2024 5:59 [facility] eGFR 96 >60 mL/min/1.73 m2 01/16/2024 5:59 EDT [facility] Blood BLOOD SAMPLE TAKEN FROM CENTRAL LINE / Unknown Port / Unknown 01/16/2024 5:19 EDT 01/16/2024 5:25 EDT Jaison Cevallos MD CHEMISTRY & BLOOD GA S ORDERABLES [facility] [address] [place] [address] * (ABNORMAL) BASIC METABOLIC PANEL (BMP) (01/15/2024 5:29 EDT) Sodium 132(L) 136 - 145 mmol/L 01/15/2024 6:17 EDT [facility] Potassium 3.7 3.5 - 5.0 mmol/L 01/15/2024 6:17 [facility] Chloride 93(L) 96 - 110 mmol/L 01/15/2024 6:17 EDT [facility] CO2 Total 36(H) 22 - 32 mmol/L 01/15/2024 6:17 T [facility] Anion Gap 3(L) 5 - 14 mmol/L 01/15/2024 6:17 EDT [facility] Glucose 93 70 - 99 mg/dl 01/15/2024 6:17 T [facility] Calcium 8.5 8.5 - 10.5 mg/dL 01/15/2024 6:17 T [facility] BUN 23 10 - 26 mg/dL 01/15/2024 6:17 [facility] SERVICES Creatinine 0.61 0.52 - 1.04 mg/dL 01/15/2024 6:17 T [facility] eGFR 101 >60 mL/min/1.73 m2 01/15/2024 6:17 [facility] Blood BLOOD SAMPLE TAKEN FROM CENTRAL LINE / Unknown Port / Unknown 01/15/2024 5:29 EDT 01/15/2024 5:33 EDT Jaison Cevallos MD CHEMISTRY & BLOOD GA S ORDERABLES [facility] [address], [place] [id number] * PHOSPHORUS (01/14/2024 5:31 EDT) Phosphorus 3.8 2.5 - 4.5 mg/dL 01/14/2024 6:08 EDT [facility] Blood VENOUS BLOOD / Unknown Port / Unknown 01/14/2024 5:31 EDT 01/14/2024 5:38 EDT Michelle Emery DO CHEMISTRY & BLOOD GA S ORDERABLES [facility] [address] [place] [address] * (ABNORMAL) BASIC METABOLIC PANEL (BMP) (01/14/2024 5:31 EDT) Sodium 131(L) 136 - 145 mmol/L 01/14/2024 6:08 EDT [facility] Potassium 3.9 3.5 - 5.0 mmol/L 01/14/2024 6:08 [facility] Chloride 94(L) 96 - 110 mmol/L 01/14/2024 6:08 [facility] CO2 Total 34(H) 22 - 32 mmol/L 01/14/2024 6:08 [facility] Anion Gap 3(L) 5 - 14 mmol/L 01/14/2024 6:08 [facility] Glucose 107(H) 70 - 99 mg/dl 01/14/2024 6:08 [facility] Calcium 8.5 8.5 - 10.5 mg/dL 01/14/2024 6:08 [facility] BUN 20 10 - 26 mg/dL 01/14/2024 6:08 [facility] Creatinine 0.68 0.52 - 1.04 mg/dL 01/14/2024 6:08 [facility] eGFR 98 >60 mL/min/1.73 m2 01/14/2024 6:08 [facility] Blood VENOUS BLOOD / Unknown Port / Unknown 01/14/2024 5:31 EDT 01/14/2024 5:38 EDT aJison Cevallos MD CHEMISTRY & BLOOD GA S ORDERABLES [facility] [address] [place] [address] * MAGNESIUM (01/14/2024 5:31 EDT) Magnesium 2.2 1.7 - 2.8 mg/dL 01/14/2024 6:08 EDT [facility] Blood VENOUS BLOOD / Unknown Port / Unknown 01/14/2024 5:31 EDT 01/14/2024 5:38 EDT Jaison Cevallos MD CHEMISTRY & BLOOD GA S ORDERABLES [facility] [address] [place] [address] * (ABNORMAL) COMPLETE BLOOD COUNT (01/14/2024 5:31 EDT) WBC 16.80(H) 4.00 - 12.40 K/cmm 01/14/2024 5:46 EDT [facility] RBC 2.01(L) 3.86 - 5.04 M/cmm 01/14/2024 5:46 [facility] Hemoglobin 7.3(L) 11.6 - 15.2 g/dL 01/14/2024 5:46 [facility] HCT 21.5(L) 34.9 - 44.4 % 01/14/2024 5:46 [facility] MCV 107(H) 81 - 98 fL 01/14/2024 5:46 [facility] MCH 36.3(H) 26.7 - 33.3 pg 01/14/2024 5:46 [facility] MCHC 34.0 32.1 - 35.9 g/dL 01/14/2024 5:46 [facility] RDW-CV 22.7(H) <14.7 % 01/14/2024 5:46 [facility] RDW-SD 87.8(H) <50.4 fl 01/14/2024 5:46 [facility] PLT 169 141 - 377 K/cmm 01/14/2024 5:46 [facility] MPV 10.5 9.5 - 12.7 fL 01/14/2024 5:46 [facility] Nucleated Red Blood Cells 1(H) <=0 /100WBC'S 01/14/2024 5:46 [facility] Blood VENOUS BLOOD / Unknown Port / Unknown 01/14/2024 5:31 EDT 01/14/2024 5:38 EDT Jaison Cevallos MD HEMATOLOGY & PF4 ORD ERABLES [facility] [address] [place] [address] * HISTOPLASMA AND BLASTOMYCES AG, EIA, URINE (01/13/2024 1:15 EDT) Histoplasma/Blasto myces Ag Result Not Detected Not Detected 01/17/2024 14:02 EDT [facility] Comment: No antigen from Histoplasma or Blastomyces detected. ?? False negative results may occur depending on extent of disease, and/or site of infection. ?? Repeat testing on a new specimen if clinically indicated. ?? Histoplasma/Blasto myces Ag Value Not Detected ng/mL 01/17/2024 14:02 EDT [facility] Comment: ADDITIONAL INFORMATION This test was developed and its performance characteristics determined by [facility] in a manner consistent with CLIA requirements. This test has not been cleared or approved by the U.S. Food and Drug Administration. Test Performed by: [facility] [place] [address] Fitness Worker: Abby Rubi Ph.D.; CLIA# [id number] Urine URINE / Unknown Urine Collect / Unknown 01/13/2024 1:15 EDT 01/13/2024 1:21 EDT Renee Garcia MD URINALYSIS ORDERABLE S Performing Organization Address [facility] Co de Phone Number [facility] [address] [place] [address] * BACTERIAL CULTURE, BLOOD (01/12/2024 20:17 EDT) Organism ID No Growth at 5 days 01/17/2024 21:31 EDT [facility] Blood VENOUS BLOOD / Unknown Venipuncture / Unknown 01/12/2024 20:17 EDT 01/12/2024 21:16 EDT Renee Garcia MD MICROBIOLOGY - GENER AL ORDERABLES Performing Organization Address City/[facility] Co de Phone Number [facility] [address], [place] [id number] * (ABNORMAL) DIFFERENTIAL, AUTOMATED MANUAL (01/12/2024 19:44 EDT) % Neutrophils 87.0 Not Indicated % 01/13/2024 11:12 EDT [facility] % Lymphocytes 4.3 Not Indicated % 01/13/2024 11:12 EDT [facility] % Monocytes 8.7 Not Indicated % 01/13/2024 11:12 EDT [facility] Absolute Neutrophils 15.47(H) 2.20 - 8.85 K/cmm 01/13/2024 11:12 EDT [facility] Absolute Lymphocytes 0.76(L) 1.09 - 3.30 K/cmm 01/13/2024 11:12 EDT [facility] Absolute Monocytes 1.55(H) 0.10 - 0.80 K/cmm 01/13/2024 11:12 EDT [facility] Type of Differential: Manual 01/13/2024 11:12 EDT [facility] Blood VENOUS BLOOD / Unknown Venipuncture / Unknown 01/12/2024 19:44 EDT 01/12/2024 19:52 EDT Michelle Emery DO HEMATOLOGY & PF4 ORD ERABLES Performing Organization Address [facility] Co de Phone Number [facility] [address] [place] [address] * MISCELLANEOUS TEST, [place] (01/12/2024 19:44 EDT) Pathologist [facility] Miscellaneous Test, [place] SEE NOTE 01/16/2024 15:56 EDT [facility] Comment: Test ? Result ? Flag ??Unit ??RefValue M pneumoniae PCR + Macrolide Reflex ??Specimen source ?bronchial lavage ?M. pneumoniae PCR ?Negative ? Negative ? ADDITIONAL INFORMATION ?This test was developed and its performance characteristics ?determined by [facility] in a manner consistent with CLIA ?requirements. This test has not been cleared or approved by ?the U.S. Food and Drug Administration. ?Test Performed by: ?[facility] ?[address] [place] [address] ?Fitness Worker: Abby Rubi Ph.D.; CLIA# [id number] Swab ORAL / Unknown 01/12/2024 19 :44 EDT 01/12/2024 22:24 EDT Renee Garcia MD CHEMISTRY & BLOOD GA S ORDERABLES Performing Organization Address [facility]/State/ZIP Co de Phone Number [facility] [address] [place] [address] * ANAPLASMA AND BABESIA TESTING BY PCR (01/12/2024 19:44 EDT) Anaplasma phagocytophilum Negative Negative 01/13/2024 10:45 EDT [facility] Babesia Species Negative Negative 10:45 EDT [facility] Blood VENOUS BLOOD / Unknown Venipuncture / Unknown 01/12/2024 19:44 EDT 01/12/2024 19:53 EDT Narrative [facility] - 01/13/2024 10:45 EDT This test was developed and its performance characteristics determined by [facility]. It has not been cleared or [...] BLOOD GA S ORDERABLES Performing Organization Address [facility]/ZIP Co de Phone Number [facility] [address] [place] [address] * BACTERIAL CULTURE, BLOOD (01/12/2024 19:44 EDT) Organism ID No Growth at 5 days 01/17/2024 20:46 EDT [facility] Blood VENOUS BLOOD / Unknown Venipuncture / Unknown 01/12/2024 19:44 EDT 01/12/2024 20:45 EDT Renee Garcia MD MICROBIOLOGY - GENER AL ORDERABLES Performing Organization Address [facility] Co de Phone Number [facility] [address] [place] [address] * MISCELLANEOUS TEST, [place] (01/12/2024 19:44 EDT) Miscellaneous Test, [place] SEE NOTE 01/16/2024 13:33 EDT [facility] Comment: Test ? Result ?Flag ??Unit ?? RefValue Aspergillus Ag, S ?<0.500 ?index ??<0.5 ? ADDITIONAL INFORMATION ?This is a qualitative test and the resulted index value is ?not indicative of disease severity. ??Serial testing is ?recommended for patients at high risk for invasive ?aspergillosis. ?This assay was performed using the FDA-cleared Vertishear ?Platelia Aspergillus Galactomannan EIA. ?Test Performed by: ?[facility] ?[address] [id number] ?Fitness Worker: Abby Rubi Ph.D.; CLIA# [id number] Blood VENOUS BLOOD / Unknown Venipuncture / Unknown 01/12/2024 19:44 EDT 01/12/2024 19:53 EDT Renee Garcia MD CHEMISTRY & BLOOD GA S ORDERABLES Performing Organization Address [facility]/State/[facility] Co de Phone Number [facility] [address] [place] [address] * MISCELLANEOUS TEST, [place] (01/12/2024 19:44 EDT) Pathologist [facility] Miscellaneous Test, [place] SEE NOTE 01/16/2024 10:47 EDT [facility] Comment: Test ?Result ? Flag ??Unit ?? [...] developed and its performance characteristics ?determined by [facility] in a manner consistent with CLIA ?requirements. This test has not been cleared or approved by ?the U.S. Food and Drug Administration. ?Test Performed by: ?[facility] ?[address] [place] [address] ?Fitness Worker: Abby Rubi Ph.D.; CLIA# [id number] Blood VENOUS BLOOD / Unknown Venipuncture / Unknown 01/12/2024 19:44 EDT 01/12/2024 19:51 EDT Renee Garcia MD CHEMISTRY & BLOOD GA S ORDERABLES [facility] [address] [place] [address] * PHOSPHORUS (01/12/2024 19:44 EDT) Phosphorus 3.6 2.5 - 4.5 mg/dL 01/12/2024 20:08 EDT [facility] Blood VENOUS BLOOD / Unknown Venipuncture / Unknown 01/12/2024 19:44 EDT 01/12/2024 19:52 EDT Michelle Emery DO CHEMISTRY & BLOOD GA S ORDERABLES [facility] [address], [place] [id number] * (ABNORMAL) COMPLETE BLOOD COUNT (01/12/2024 19:44 EDT) WBC 17.78(H) 4.00 - 12.40 K/cmm 01/12/2024 20:08 [facility] RBC 2.29(L) 3.86 - 5.04 M/cmm 01/12/2024 20:08 [facility] Hemoglobin 8.1(L) 11.6 - 15.2 g/dL 01/12/2024 20:08 [facility] HCT 24.3(L) 34.9 - 44.4 % 01/12/2024 20:08 [facility] MCV 106(H) 81 - 98 fL 01/12/2024 20:08 [facility] MCH 35.4(H) 26.7 - 33.3 pg 01/12/2024 20:08 [facility] MCHC 33.3 32.1 - 35.9 g/dL 01/12/2024 20:08 [facility] RDW-CV 22.5(H) <14.7 % 01/12/2024 20:08 [facility] RDW-SD 86.6(H) <50.4 fl 01/12/2024 20:08 [facility] PLT 193 141 - 377 K/cmm 01/12/2024 20:08 [facility] MPV 10.7 9.5 - 12.7 fL 01/12/2024 20:08 [facility] Blood VENOUS BLOOD / Unknown Venipuncture / Unknown 01/12/2024 19:44 EDT 01/12/2024 19:52 EDT Jaison Cevallos MD HEMATOLOGY & PF4 ORD ERABLES Performing Organization Address City/[facility]/ZIP Co de Phone Number [facility] [address] [place] [address] * MAGNESIUM (01/12/2024 19:44 EDT) Pathologist [facility] Magnesium 2.1 1.7 - 2.8 mg/dL 01/12/2024 20:08 [facility] Blood VENOUS BLOOD / Unknown Venipuncture / Unknown 01/12/2024 19:44 EDT 01/12/2024 19:52 EDT Jaison Cevallos MD CHEMISTRY & BLOOD GA S ORDERABLES Performing Organization Address [facility] Co de Phone Number [facility] [address] [place] [address] * (ABNORMAL) BASIC METABOLIC PANEL (BMP) (01/12/2024 19:44 EDT) Pathologist [facility] Sodium 134(L) 136 - 145 mmol/L 01/12/2024 20:08 [facility] Potassium 3.6 3.5 - 5.0 mmol/L 01/12/2024 20:08 [facility] Chloride 99 96 - 110 mmol/L 01/12/2024 20:08 [facility] CO2 Total 25 22 - 32 mmol/L 01/12/2024 20:08 [facility] Anion Gap 10 5 - 14 mmol/L 01/12/2024 20:08 [facility] Glucose 137(H) 70 - 99 mg/dl 01/12/2024 20:08 [facility] Calcium 8.1(L) 8.5 - 10.5 mg/dL 01/12/2024 20:08 [facility] BUN 17 10 - 26 mg/dL 01/12/2024 20:08 [facility] Creatinine 0.59 0.52 - 1.04 mg/dL 01/12/2024 20:08 [facility] eGFR 102 >60 mL/min/1.73 m2 01/12/2024 20:08 EDT [facility] Blood VENOUS BLOOD / Unknown Venipuncture / Unknown 01/12/2024 19:44 EDT 01/12/2024 19:52 EDT Jaison Cevallos MD CHEMISTRY & BLOOD GA S ORDERABLES Performing Organization Address [facility] Co de Phone Number [facility] [address] [place] [address] * MD ABDOM PARACENTESIS DX/THER W/O IMAGING GUIDANCE, HC - ABDOM PARACENTESIS DX/THER W/O IMAGING GUIDANCE (01/12/2024 13:39 EDT) Narrative [facility] POINT OF CARE - 01/12/2024 13:39 [...] to verify the correct patient, procedure, equipment, product support specialist and site/side marked as required. [...] PROCEDURE/MINOR AJ GICAL ORDERABLES Performing Organization Address [facility] Co de Phone Number [facility] POINT OF CARE * (ABNORMAL) GLUCOSE 6-PHOSPHATE DEHYDROGENASE ENZYME ACTIVITY,BLD (01/12/2024 12:45 EDT) G6PD ENZYME ACTIVITY, B 17.9(H) 8.0 - 11.9 U/g Hb 01/16/2024 12:57 EDT [facility] Comment: The G6PD activity level is [...] developed and its performance characteristics determined by [facility] in a manner consistent with CLIA requirements. This test has not been cleared or approved by the U.S. Food and Drug Administration. Test Performed by: [address] [address] Fitness Worker: Abby Rubi Ph.D.; CLIA# [id number] Blood VENOUS BLOOD / Unknown Venipuncture / Unknown 01/12/2024 12:45 EDT 01/12/2024 12:55 EDT Jackie Juan MD CHEMISTRY & BLOOD G ORDERABLES Performing Organization Address City/[facility]/ZIP Co de Phone Number [address] [address] * PHOSPHORUS (01/12/2024 5:33 EDT) Pathologist [facility] Phosphorus 3.5 2.5 - 4.5 mg/dL 01/12/2024 6:10 EDT [facility] Blood VENOUS BLOOD / Unknown Venipuncture / Unknown 01/12/2024 5:33 EDT 01/12/2024 5:41 EDT Michelle Emery DO CHEMISTRY & BLOOD GA S ORDERABLES [facility] [address] [place] [address] * (ABNORMAL) BASIC METABOLIC PANEL (BMP) (01/12/2024 5:33 EDT) Sodium 134(L) 136 - 145 mmol/L 01/12/2024 6:10 T [facility] Potassium 4.1 3.5 - 5.0 mmol/L 01/12/2024 6:10 [facility] Chloride 102 96 - 110 mmol/L 01/12/2024 6:10 [facility] CO2 Total 27 22 - 32 mmol/L 01/12/2024 6:10 [facility] Anion Gap 5 5 - 14 mmol/L 01/12/2024 6:10 [facility] Glucose 105(H) 70 - 99 mg/dl 01/12/2024 6:10 [facility] Calcium 8.9 8.5 - 10.5 mg/dL 01/12/2024 6:10 [facility] BUN 23 10 - 26 mg/dL 01/12/2024 6:10 [facility] Creatinine 0.54 0.52 - 1.04 mg/dL 01/12/2024 6:10 [facility] eGFR 104 >60 mL/min/1.73 m2 01/12/2024 6:10 [facility] Blood VENOUS BLOOD / Unknown Venipuncture / Unknown 01/12/2024 5:33 EDT 01/12/2024 5:41 EDT Jaison Cevallos MD CHEMISTRY & BLOOD GA S ORDERABLES [facility] [address] [place] [address] * MAGNESIUM (01/12/2024 5:33 EDT) Magnesium 2.5 1.7 - 2.8 mg/dL 01/12/2024 6:10 EDT [facility] Blood VENOUS BLOOD / Unknown Venipuncture / Unknown 01/12/2024 5:33 EDT 01/12/2024 5:41 EDT Jaison Cevallos MD CHEMISTRY & BLOOD GA S ORDERABLES [facility] [address] [place] [address] * (ABNORMAL) COMPLETE BLOOD COUNT (01/12/2024 5:33 EDT) WBC 13.29(H) 4.00 - 12.40 K/cmm 01/12/2024 5:47 [facility] RBC 2.07(L) 3.86 - 5.04 M/cmm 01/12/2024 5:47 [facility] Hemoglobin 7.4(L) 11.6 - 15.2 g/dL 01/12/2024 5:47 [facility] HCT 22.2(L) 34.9 - 44.4 % 01/12/2024 5:47 [facility] MCV 107(H) 81 - 98 fL 01/12/2024 5:47 [facility] MCH 35.7(H) 26.7 - 33.3 pg 01/12/2024 5:47 [facility] MCHC 33.3 32.1 - 35.9 g/dL 01/12/2024 5:47 [facility] RDW-CV 22.5(H) <14.7 % 01/12/2024 5:47 [facility] RDW-SD 88.0(H) <50.4 fl 01/12/2024 5:47 [facility] PLT 163 141 - 377 K/cmm 01/12/2024 5:47 [facility] MPV 10.9 9.5 - 12.7 fL 01/12/2024 5:47 [facility] Blood VENOUS BLOOD / Unknown Venipuncture / Unknown 01/12/2024 5:33 EDT 01/12/2024 5:41 EDT Jaison Cevallos MD HEMATOLOGY & PF4 ORD ERABLES Performing Organization Address City/[facility]/ZIP Co de Phone Number [facility] [address] [place] [address] * CALCIUM, IONIZED (01/12/2024 5:33 EDT) Calcium, Ionized 1.20 1.14 - 1.35 mmol/L 01/12/2024 5:57 EDT [facility] Blood VENOUS BLOOD / Unknown Venipuncture / Unknown 01/12/2024 5:33 EDT 01/12/2024 5:40 EDT Kaylah Vieira MD CHEMISTRY & BLOOD G ORDERABLES Performing Organization Address [facility] Co de Phone Number [facility] [address] [place] [address] * ADULT BRONCHOSCOPY PROCEDURE (01/11/2024 16:53 EDT) Narrative [facility] - 01/11/2024 16:53 EDT Procedure Performed [...] Chelsea Logan Chelsea Logan MD PFT ORDERABLES [facility] * NON UTILITY PORTER/FNA CYTOLOGY (01/11/2024 16:50 EDT) Note to Patient The following pathology results have been interpreted by your pathologist and may be available to you before your health provider has had the opportunity to review them. Please allow time for your provider to receive these results and explore management options, if applicable. 01/13/2024 8:09 EDT [facility] Final Diagnosis LUNG, LEFT UPPER LOBE, BRONCHIOALVEOLAR LAVAGE, CYTOLOGIC EVALUATION: - Negative for malignancy. - Alveolar macrophages, reactive pneumocytes and benign bronchial cells. - Special stain for fungal organism (GMS) shows few fungal organism morphologically consistent with pooja species. See comment. 01/13/2024 8:09 [facility] Diagnosis Comment The pooja organism present in this specimen may represent oral contamination. See also results of microbiology specimens for further information. Clinical correlation is recommended. Positive and negative GMS controls stained appropriately. 01/13/2024 8:09 [facility] Attestation There was significant resident/fellow involvement in the diagnostic evaluation of this case. By the signature below, the attending physician certifies that they have personally conducted a gross and/or microscopic examination of the described specimens and rendered or confirmed the above diagnosis. 01/13/2024 8:09 EDT [facility] at [address] of the chest 01/13/2024 8:09 EDT [facility] Gross Description A. 40cc's of cloudy white fluid were received and processed by selective cellular enhancement technique. 01/13/2024 8:09 EDT [facility] Resident/Junior w: Keith Maya DO 01/13/2024 8:09 EDT [facility] Performing Lab [facility] 8:09 EDT [facility] Scanned Images 01/13/2024 8:09 EDT [facility] BAL STRUCTURE OF UPPER LOBE OF LEFT LUNG / Unknown 01/11/2024 16:50 EDT 01/12/2024 6:22 EDT Chelsea Logan MD PATHOLOGY ORDERABLE S [facility] [address] [place] [address] * (ABNORMAL) PNEUMOCYSTIS JIROVECI, MOLECULAR DETECTION, PCR (01/11/2024 16:50 EDT) Specimen Source BAL 11:05 EDT [facility] Result Positive(A A) Not Applicable 01/15/2024 11:05 EDT [facility] Comment: Critical Result. ADDITIONAL INFORMATION This test was developed and its performance characteristics determined by [facility] in a manner consistent with CLIA requirements. This test has not been cleared or approved by the U.S. Food and Drug Administration. Test Performed by: [address] [address] Fitness Worker: Abby Rubi Ph.D.; CLIA# [id number] Special Information Not Reported 01/15/2024 11:05 EDT [facility] Report Status Not Reported 01/15/2024 11:05 EDT [facility] BAL STRUCTURE OF UPPER LOBE OF LEFT LUNG / Unknown 01/11/2024 16:50 EDT 01/12/2024 7:41 EDT Chelsea Logan MD MICROBIOLOGY - GENE RAL ORDERABLES Performing Organization Address City/[facility]/ZIP Co de Phone Number [address] [address] * NOCARDIA CULTURE AND SMEAR (01/11/2024 16:50 EDT) Organism ID No aerobic actinomycetes isolated 01/27/2024 10:50 EDT [facility] Fungal Smear No Modified acid fast bacilli seen 01/27/2024 10:50 EDT [facility] BAL STRUCTURE OF UPPER LOBE OF LEFT LUNG / Unknown 01/11/2024 16:50 EDT 01/12/2024 7:40 EDT Chelsea Logan MD MICROBIOLOGY - GENE RAL ORDERABLES [facility] [address] [place] [address] * AFB CULTURE/SMEAR, OTHER (01/11/2024 16:50 EDT) Organism ID No acid-fast bacilli isolated VITEK SUSCEPTIBILITY 03/08/2024 7:51 EDT [facility] AFB Smear No Acid Fast Bacilli Seen 03/08/2024 7:51 EDT [facility] BAL STRUCTURE OF UPPER LOBE OF LEFT LUNG / Unknown 01/11/2024 16:50 EDT 01/12/2024 7:40 EDT Chelsea Logan MD MICROBIOLOGY - GENE RAL ORDERABLES Performing Organization Address City/[facility]/ZIP Co de Phone Number [facility] [address] [place] [address] * DIFFERENTIAL, LAVAGE FLUID (01/11/2024 16:50 EDT) Neutrophils Fluid Relative 14 % 01/12/2024 9:08 EDT [facility] Lymphocytes Fluid Relative 19 % 01/12/2024 9:08 EDT [facility] [place]/Macrophage 66 % 9:08 EDT [facility] Eosinophils Fluid Relative 1 % 01/12/2024 9:08 EDT [facility] Path Review Fluid, other 01/12/2024 9:08 EDT [facility] SERVICES BAL STRUCTURE OF UPPER LOBE OF LEFT LUNG / Unknown 01/11/2024 16:50 EDT 01/12/2024 7:40 EDT Chelsea Logan MD GEN LAB UNIT COLLEC T ORDERABLES Performing Organization Address [facility]/ZIP Co de Phone Number [facility] [address] [place] [phone] * BACTERIAL CULTURE/SMEAR, RESPIRATORY (01/11/2024 16:50 EDT) Organism ID Less than 10,000 CFU/ml usual danny-pharyngeal antonia. No Staphylococcus aureus or Pseudomonas species isolated. 02/07/2024 13:50 EDT [facility] Smear Neutrophils Present 02/07/2024 13:50 EDT [facility] Smear No bacteria seen 02/07/20 13:50 EDT [facility] BAL STRUCTURE OF UPPER LOBE OF LEFT LUNG / Unknown 01/11/2024 16:50 EDT 01/12/2024 7:40 EDT Chelsea Logan MD MICROBIOLOGY - GENE RAL ORDERABLES [facility] [address], [place] [id number] * FUNGUS CULTURE/SMEAR (01/11/2024 16:50 EDT) Pathologist [facility] Organism ID Yeast Not Cryptococcus or Dimorphic Fungi 02/09/2024 11:05 EDT [facility] Fungal Smear No Fungi Seen 11:05 EDT [facility] BAL STRUCTURE OF UPPER LOBE OF LEFT LUNG / Unknown 01/11/2024 16:50 EDT 01/12/2024 7:40 EDT Chelsea Logan MD MICROBIOLOGY - GENE RAL ORDERABLES Performing Organization Address [facility] Co de Phone Number [facility] [address], [place] [phone] * FOLATE (01/11/2024 8:00 EDT) [facility] Folate >24.0 See Note ng/mL 01/11/2024 20:13 EDT [facility] Comment: Reference Ranges for Folate: Deficient: ?< 3.4 ng/mL Indeterminate: ??3.4 - 5.4 ng/mL Normal: ? > 5.4 ng/mL The results of this assay can be falsely elevated due to the consumption of Biotin. Blood BLOOD SAMPLE TAKEN FROM CENTRAL LINE / Unknown 01/11/2024 8:00 EDT 01/11/2024 8:08 EDT Narrative [facility] - 01/11/2024 20:13 EDT Slight hemolysis present Hemolysis may elevate Folate result Kaylah Vieira MD CHEMISTRY & BLOOD G ORDERABLES Performing Organization Address [facility] Co de Phone Number [facility] [address], [place] [phone] * (ABNORMAL) VITAMIN B12 (01/11/2024 8:00 EDT) Vitamin B12 1,574(H) 211 - 911 pg/mL 01/11/2024 20:15 [facility] Blood BLOOD SAMPLE TAKEN FROM CENTRAL LINE / Unknown 01/11/2024 8:00 EDT 01/11/2024 8:08 EDT Kaylah Vieira MD CHEMISTRY & BLOOD G ORDERABLES [facility] [address] [place] [phone] * (ABNORMAL) HEPATIC FUNCTION PANEL (ALB,ALK PHOS,ALT,AST,DBIL,TOT WILY,TOT PROT) (01/11/2024 8:00 EDT) Total Protein 5.3(L) 6.3 - 8.2 g/dL 01/11/2024 15:09 [facility] Comment:Slight hemolysis gonzalez ntified, interpret with caution as results may be affected due to hemolysis. Albumin 2.5(L) 3.4 - 4.9 g/dL 01/11/2024 15:09 [facility] Comment:Slight hemolysis gonzalez ntified, interpret with caution as results may be affected due to hemolysis. Bilirubin, Total 1.2 <1.4 mg/dL 01/11/20 15:09 [facility] Conjugated Bilirubin 0.0 <=0.3 mg/dL 01/11/2024 15:09 [facility] Unconjugated Bilirubin 0.6 <=1.1 mg/dL 01/11/2024 15:09 [facility] Alkaline Phosphatase 312(H) 38 - 126 U/L 01/11/2024 15:09 [facility] Comment:Slight hemolysis gonzalez ntified, hemolysis will decrease ALKP result. Interpret with caution as results may be affected due to hemolysis. ALT 50(H) <35 U/L 01/11/2024 15:09 [facility] AST 69(H) 15 - 46 U/L 01/11/2024 15:09 [facility] Comment:Slight hemolysis gonzalez ntified, interpret with caution as results may be affected due to hemolysis. Calculated Total Bilirubin 0.6 <1.4 mg/dL 01/11/2024 15:09 [facility] Blood BLOOD SAMPLE TAKEN FROM CENTRAL LINE / Unknown 01/11/2024 8:00 EDT 01/11/2024 8:08 EDT Kaylah Vieira MD CHEMISTRY & BLOOD G ORDERABLES [facility] [address] [place] [address] * (ABNORMAL) BASIC METABOLIC PANEL (BMP) (01/11/2024 8:00 EDT) Sodium 133(L) 136 - 145 mmol/L 01/11/2024 8:59 [facility] Potassium 4.6 3.5 - 5.0 mmol/L 01/11/2024 8:59 [facility] Comment:Slight hemolysis gonzalez ntified, interpret with caution as hemolysis will elevate potassium result. Chloride 98 96 - 110 mmol/L 01/11/2024 8:59 [facility] CO2 Total 26 22 - 32 mmol/L 01/11/2024 8:59 [facility] Anion Gap 9 5 - 14 mmol/L 01/11/2024 8:59 [facility] Glucose 95 70 - 99 mg/dl 01/11/2024 8:59 [facility] Calcium 8.7 8.5 - 10.5 mg/dL 01/11/2024 8:59 [facility] BUN 21 10 - 26 mg/dL 01/11/2024 8:59 [facility] Comment: Slight hemolysis identified, interpret with caution as results may be affected due to hemolysis. Creatinine 0.59 0.52 - 1.04 mg/dL 01/11/2024 8:59 [facility] eGFR 102 >60 mL/min/1.7 3m2 01/11/2024 8:59 [facility] Blood BLOOD SAMPLE TAKEN FROM CENTRAL LINE / Unknown 01/11/2024 8:00 EDT 01/11/2024 8:08 EDT Jaison Cevallos MD CHEMISTRY & BLOOD GA S ORDERABLES Performing Organization Address [facility]/ZIP Co de Phone Number [facility] [address], [place] [phone] * MAGNESIUM (01/11/2024 8:00 EDT) Pathologist [facility] Magnesium 2.3 1.7 - 2.8 mg/dL 01/11/2024 8:59 EDT [facility] Comment:Slight hemolysis gonzalez ntified, interpret with caution as results may be affected due to hemolysis. Blood BLOOD SAMPLE TAKEN FROM CENTRAL LINE / Unknown 01/11/2024 8:00 EDT 01/11/2024 8:08 EDT Jaison Cevallos MD CHEMISTRY & BLOOD GA S ORDERABLES Performing Organization Address [facility]/ZIP Co de Phone Number [facility] [address], [place] [phone] * (ABNORMAL) COMPLETE BLOOD COUNT (01/11/2024 6:14 EDT) WBC 15.81(H) 4.00 - 12.40 K/cmm 01/11/2024 6:56 EDT [facility] RBC 2.17(L) 3.86 - 5.04 M/cmm 01/11/2024 6:56 EDT [facility] Hemoglobin 7.6(L) 11.6 - 15.2 g/dL 01/11/2024 6:56 EDT [facility] HCT 22.9(L) 34.9 - 44.4 % 01/11/2024 6:56 EDT [facility] MCV 106(H) 81 - 98 fL 01/11/2024 6:56 EDT [facility] MCH 35.0(H) 26.7 - 33.3 pg 01/11/2024 6:56 EDT [facility] MCHC 33.2 32.1 - 35.9 g/dL 01/11/2024 6:56 T [facility] RDW-CV 23.2(H) <14.7 % 01/11/2024 6:56 T [facility] RDW-SD 89.1(H) <50.4 fl 01/11/2024 6:56 T [facility] PLT 232 141 - 377 K/cmm 01/11/2024 6:56 T [facility] MPV 11.5 9.5 - 12.7 fL 01/11/2024 6:56 T [facility] Blood BLOOD SAMPLE TAKEN FROM CENTRAL LINE / Unknown Port / Unknown 01/11/2024 6:14 EDT 01/11/2024 6:29 EDT Jaison Cevallos MD HEMATOLOGY & PF4 ORD ERABLES [facility] [address] [place] [address] * (ABNORMAL) BASIC METABOLIC PANEL (BMP) (01/10/2024 17:08 EDT) Sodium 131(L) 136 - 145 mmol/L 01/10/2024 17:54 [facility] Potassium 4.6 3.5 - 5.0 mmol/L 01/10/2024 17:54 [facility] Comment:Slight hemolysis gonzalez ntified, interpret with caution as hemolysis will elevate potassium result. Chloride 96 96 - 110 mmol/L 01/10/2024 17:54 [facility] CO2 Total 24 22 - 32 mmol/L 01/10/2024 17:54 [facility] Anion Gap 11 5 - 14 mmol/L 01/10/2024 17:54 [facility] Glucose 133(H) 70 - 99 mg/dl 01/10/2024 17:54 [facility] Calcium 8.3(L) 8.5 - 10.5 mg/dL 01/10/2024 17:54 EDT [facility] BUN 17 10 - 26 mg/dL 01/10/2024 17:54 EDT [facility] Comment: Slight hemolysis identified, interpret with caution as results may be affected due to hemolysis. Creatinine 0.59 0.52 - 1.04 mg/dL 01/10/2024 17:54 EDT [facility] eGFR 102 >60 mL/min/1.7 3m2 01/10/2024 17:54 EDT [facility] Blood VENOUS BLOOD / Unknown Venipuncture / Unknown 01/10/2024 17:08 EDT 01/10/2024 17:17 EDT Jaison Cevallos MD CHEMISTRY & BLOOD GA S ORDERABLES Performing Organization Address City/[facility]/ZIP Co de Phone Number [facility] [address] [place] [address] * MAGNESIUM (01/10/2024 17:08 EDT) Magnesium 2.0 1.7 - 2.8 mg/dL 01/10/2024 17:54 EDT [facility] Comment:Slight hemolysis gonzalez ntified, interpret with caution as results may be affected due to hemolysis. Blood VENOUS BLOOD / Unknown Venipuncture / Unknown 01/10/2024 17:08 EDT 01/10/2024 17:17 EDT Jaison Cevallos MD CHEMISTRY & BLOOD GA S ORDERABLES [facility] [address] [place] [address] * FERRITIN (01/10/2024 8:44 EDT) Ferritin 46 10 - 291 ng/mL 01/10/2024 10:21 EDT [facility] Blood BLOOD SAMPLE TAKEN FROM CENTRAL LINE / Unknown 01/10/2024 8:44 EDT 01/10/2024 9:05 EDT Kaylah Vieira MD CHEMISTRY & BLOOD G ORDERABLES Performing Organization Address [facility] Co de Phone Number [facility] [address] [place] [address] * (ABNORMAL) TRANSFERRIN SATURATION (01/10/2024 8:44 EDT) Iron 27(L) 37 - 170 ??g/dL 01/10/2024 9:47 EDT [facility] Iron Binding Capacity 250 240 - 450 ??g/dL 01/10/2024 9:47 EDT [facility] Transferrin Saturation 11(L) 15 - 45 % 01/10/2024 9:47 EDT [facility] Blood BLOOD SAMPLE TAKEN FROM CENTRAL LINE / Unknown 01/10/2024 8:44 EDT 01/10/2024 9:05 EDT Kaylah Vieira MD CHEMISTRY & BLOOD G ORDERABLES Performing Organization Address [facility] Co de Phone Number [facility] [address] [place] [address] * (ABNORMAL) BASIC METABOLIC PANEL (BMP) (01/10/2024 8:44 EDT) Sodium 132(L) 136 - 145 mmol/L 01/10/2024 9:38 T [facility] Potassium 3.9 3.5 - 5.0 mmol/L 01/10/2024 9:38 [facility] Chloride 98 96 - 110 mmol/L 01/10/2024 9:38 T [facility] CO2 Total 26 22 - 32 mmol/L 01/10/2024 9:38 [facility] Anion Gap 8 5 - 14 mmol/L 01/10/2024 9:38 [facility] Glucose 100(H) 70 - 99 mg/dl 01/10/2024 9:38 [facility] Calcium 8.3(L) 8.5 - 10.5 mg/dL 01/10/2024 9:38 EDT [facility] BUN 16 10 - 26 mg/dL 01/10/2024 9:38 EDT [facility] Creatinine 0.56 0.52 - 1.04 mg/dL 01/10/2024 9:38 EDT [facility] eGFR 103 >60 mL/min/1.73 m2 01/10/2024 9:38 EDT [facility] Blood BLOOD SAMPLE TAKEN FROM CENTRAL LINE / Unknown 01/10/2024 8:44 EDT 01/10/2024 9:05 EDT Jaison Cevallos MD CHEMISTRY & BLOOD GA S ORDERABLES Performing Organization Address City/[facility]/ZIP Co de Phone Number [facility] [address] [place] [address] * MAGNESIUM (01/10/2024 8:44 EDT) Magnesium 2.1 1.7 - 2.8 mg/dL 01/10/2024 9:38 EDT [facility] Blood BLOOD SAMPLE TAKEN FROM CENTRAL LINE / Unknown 01/10/2024 8:44 EDT 01/10/2024 9:05 EDT Jaison Cevallos MD CHEMISTRY & BLOOD GA S ORDERABLES Performing Organization Address City/[facility]/ZIP Co de Phone Number [facility] [address] [place] [id number] * (ABNORMAL) COMPLETE BLOOD COUNT (01/10/2024 6:41 EDT) WBC 12.01 4.00 - 12.40 K/cmm 01/10/2024 7:43 EDT [facility] RBC 2.11(L) 3.86 - 5.04 M/cmm 01/10/2024 7:43 EDT [facility] Hemoglobin 7.6(L) 11.6 - 15.2 g/dL 01/10/2024 7:43 EDT [facility] HCT 22.0(L) 34.9 - 44.4 % 01/10/2024 7:43 EDT [facility] MCV 104(H) 81 - 98 fL 01/10/2024 7:43 EDT [facility] MCH 36.0(H) 26.7 - 33.3 pg 01/10/2024 7:43 EDT [facility] MCHC 34.5 32.1 - 35.9 g/dL 01/10/2024 7:43 EDT [facility] RDW-CV 23.8(H) <14.7 % 01/10/2024 7:43 EDT [facility] RDW-SD 88.4(H) <50.4 fl 01/10/2024 7:43 EDT [facility] PLT 195 141 - 377 K/cmm 01/10/2024 7:43 EDT [facility] MPV 11.7 9.5 - 12.7 fL 01/10/2024 7:43 EDT [facility] Blood BLOOD SAMPLE TAKEN FROM CENTRAL LINE / Unknown Port / Unknown 01/10/2024 6:41 EDT 01/10/2024 7:08 EDT Jaison Cevallos MD HEMATOLOGY & PF4 ORD ERABLES [facility] [address] [place] [address] * CRYPTOCOCCAL ANTIGEN, SERUM (01/10/2024 6:41 EDT) Cryptococcal Ag Serum Negative Negative 01/10/2024 15:14 EDT [facility] Blood BLOOD SAMPLE TAKEN FROM CENTRAL LINE / Unknown Port / Unknown 01/10/2024 6:41 EDT 01/10/2024 7:21 EDT Michelle Emery DO MICROBIOLOGY - GENER AL ORDERABLES Performing Organization Address City/[facility]/ZIP Co de Phone Number [facility] [address] [place] [address] * (ABNORMAL) FUNGITELL, SERUM (01/10/2024 6:41 EDT) Fungitell Quantitative Value >500(A) <60 pg/mL pg/mL 01/12/2024 12:07 EDT [facility] Fungitell Qualitative Result Positive (A) Negative 01/12/2024 12:07 EDT [facility] Comment: (1, 3) Ruoy-I-Xhiklp detected. A single positive result should be [...] produce very low levels of (1, 3) Ohoq-W-Indtvu (BDG) and the Mucorales (e.g., Lichthemia, Mucor and Rhizopus), which are not known to produce BDG. Additionally, the yeast phase of Blastomyces dermatitidis produces little BDG and may not be detected by this assay. Hemolyzed ADDITIONAL INFORMATION This assay was performed using the FDA-cleared Fungitell Assay ([facility], [place], [place], [place]), a kinetic MANDEEP based on modification of the Limulus Amebocyte Lysate pathway. Test Performed by: [facility] - [address] [address] Fitness Worker: Abby Rubi Ph.D.; CLIA# [id number] Blood BLOOD SAMPLE TAKEN FROM CENTRAL LINE / Unknown Port / Unknown 01/10/2024 6:41 EDT 01/10/2024 7:06 EDT Michelle Rayll DO IMMUNOLOGY AND EFRA OGY ORDERABLES [facility] [address] [place] [address] * TRANSTHORACIC ECHO (TTE) COMPLETE W/DOPPLER W/CF [...] CARE LVOT mean velocity, S 0.8 m/s UVN POINT OF CARE IVS thickness, ED, PLAX [...] color Doppler.The study was interpreted by [facility]. Pertinent images and [...] EDT) 01/09/2024 13:0 6 EDT Scan 2 Gis Instructor PROCEDURE/MINOR AJ GICAL ORDERABLES * IR PARACENTESIS-RADIOLOGY (01/09/2024 9:59 EDT) Anatomical Region Laterality Modality N/A X-Ray Angiograph y 01/10/2024 10:1 2 EDT Impressions 01/10/2024 10:12 EDT 1. Successful ultrasound guided paracentesis. [id number] Narrative 01/10/2024 10:12 EDT ULTRASOUND-GUIDED PARACENTESIS History: [...] current guidelines was used. Resulting Agency Comment [id number] Procedure Note Scriver, David Rowley MD - [...] used. IMPRESSION 1. Successful ultrasound guided paracentesis. [id number] Hugo Vergara MD PhD IMG IR ORDERABL ES * FLUID DIFFERENTIAL (01/09/2024 9:42 EDT) Neutrophils Fluid Relative 18 % 01/09/2024 13:54 EDT [facility] Lymphocytes Fluid Relative 22 % 01/09/2024 13:54 EDT [facility] [place]/Macrophage 46 % 13:54 EDT [facility] Mesothelial Cells Fluid Relative 14 % 01/09/2024 13:54 EDT [facility] Fluid ASCITIC FLUID / Unknown 01/09/2024 9:42 EDT 01/09/2024 12:35 EDT Hugo Vergara MD PhD GEN LAB UNIT CO LLECT ORDERABLES Performing Organization Address [facility] Co de Phone Number [facility] [address] [place] [address] * FLUID CELL COUNT (01/09/2024 9:42 EDT) Pathologist [facility] RBC, Fluid <10,000 /cmm 01/09/2024 12:54 EDT [facility] Nucleated Cells, fluid 101 /cmm 01/09/2024 12:54 EDT [facility] Comment, fluid Yellow Slightly cloudy 01/09/2024 12:54 EDT [facility] Fluid ASCITIC FLUID / Unknown 01/09/2024 9:42 EDT 01/09/2024 12:35 EDT Hugo Vergara MD PhD HEMATOLOGY & PF 4 ORDERABLES Performing Organization Address [facility] Co de Phone Number [facility] [address] [place] [address] * STREPTOCOCCUS PNEUMONIAE ANTIGEN, URINE (01/09/2024 6:20 EDT) Strep Pneumo Ag Detection, Urine Negative Negative 01/09/2024 9:46 EDT [facility] Urine URINE / Unknown Urine Collect / Unknown 01/09/2024 6:20 EDT 01/09/2024 7:23 EDT Jaison Cevallos MD MICROBIOLOGY - GENER AL ORDERABLES Performing Organization Address [facility] Co de Phone Number [facility] [address] [place] [address] * LEGIONELLA ANTIGEN DETECTION, URINE (01/09/2024 6:20 EDT) Legionella Antigen Detection Negative Negative 01/09/2024 9:46 EDT [facility] Urine URINE / Unknown Urine Collect / Unknown 01/09/2024 6:20 EDT 01/09/2024 7:23 EDT Jaison Cevallos MD MICROBIOLOGY - GENER AL ORDERABLES Performing Organization Address [facility] Co de Phone Number [facility] [address] [place] [address] * HN LAB CBC SMEAR REVIEW (01/09/2024 6:08 EDT) Differential Comment Slide was examined by a technologist to verify the WBC and/or platelet count. 01/09/2024 7:11 EDT [facility] Blood VENOUS BLOOD / Unknown Venipuncture / Unknown 01/09/2024 6:08 EDT 01/09/2024 6:34 EDT Jaison Cevallos MD HEMATOLOGY & PF4 ORD ERABLES Performing Organization Address [facility] Co de Phone Number [facility] [address] [place] [address] * (ABNORMAL) COMPLETE BLOOD COUNT (01/09/2024 6:08 EDT) WBC 8.60 4.00 - 12.40 K/cmm 01/09/2024 7:11 EDT [facility] RBC 2.08(L) 3.86 - 5.04 M/cmm 01/09/2024 7:11 T [facility] Hemoglobin 7.4(L) 11.6 - 15.2 g/dL 01/09/2024 7:11 [facility] HCT 22.2(L) 34.9 - 44.4 % 01/09/2024 7:11 [facility] MCV 107(H) 81 - 98 fL 01/09/2024 7:11 [facility] MCH 35.6(H) 26.7 - 33.3 pg 01/09/2024 7:11 [facility] MCHC 33.3 32.1 - 35.9 g/dL 01/09/2024 7:11 [facility] RDW-CV 24.5(H) <14.7 % 01/09/2024 7:11 [facility] RDW-SD 91.6(H) <50.4 fl 01/09/2024 7:11 [facility] PLT 124(L) 141 - 377 K/cmm 01/09/2024 7:11 [facility] MPV 11.9 9.5 - 12.7 fL 01/09/2024 7:11 [facility] Blood VENOUS BLOOD / Unknown Venipuncture / Unknown 01/09/2024 6:08 EDT 01/09/2024 6:34 EDT Jaison Cevallos MD HEMATOLOGY & PF4 ORD ERABLES [facility] [address], [place] [id number] * EXPANDED RESPIRATORY VIRAL PANEL, PCR (DOES NOT INCLUDE INFLUENZA OR RSV) (01/08/2024 17:10 EDT) Paraflu Type 1 Rslt (PF1RES) Negative Negative 01/08/2024 23:21 EDT [facility] Paraflu Type 2 Rslt (PF2RES) Negative Negative 01/08/2024 23:21 EDT [facility] Paraflu Type 3 Rslt (PF3RES) Negative Negative 01/08/2024 23:21 EDT [facility] Paraflu Type 4 Rslt Negative Negative 01/07 23:21 EDT [facility] Rhinovirus RNA Rslt (RVRES) Negative Negative 01/08/2024 23:21 EDT [facility] Metapneumovirus RNA Rslt (HMVRES) Negative Negative 01/08/2024 23:21 EDT [facility] Adenovirus DNA Rslt (ADVRES) Negative Negative 01/08/2024 23:21 EDT [facility] Swab NASOPHARYNGEAL STRUCTURE / Unknown Swab / Unknown 01/08/2024 17:10 EDT 01/08/2024 17:12 EDT Bambi Porter MD MICROBIOLOGY - GENER AL ORDERABLES [facility] [address] [place] [address] * SARS COV2, FLU A/B, RSV DETECT BY PCR (01/08/2024 17:10 EDT) FLU A RNA Result (FLARES) Negative Negative 01/08/2024 18:26 EDT [facility] FLU B RNA Result (FLBRES) Negative Negative 01/08/2024 18:26 EDT [facility] RSV RNA Result (RSVRES) Negative Negative 01/08/2024 18:26 EDT [facility] COVID-19 rt-PCR Result Negative Negative 01/08/2024 18:26 EDT [facility] Comment: Negative results do not preclude 2019-nCoV infection and should not be used as the sole basis for treatment or other patient management decisions. Negative results must be combined with clinical observations, patient history, and epidemiological information. Performed on the [employer] GeneXpert Instrument Swab NASOPHARYNGEAL STRUCTURE / Unknown Swab / Unknown 01/08/2024 17:10 EDT 01/08/2024 17:12 EDT Trinh Alcocer PA-C MICROBIOLOGY - GENER AL ORDERABLES [facility] [address] [place] [address] * (ABNORMAL) COMPREHENSIVE METABOLIC PANEL (CMP) (01/08/2024 17:10 EDT) Sodium 128(L) 136 - 145 mmol/L 01/08/2024 17:28 T [facility] Potassium 4.3 3.5 - 5.0 mmol/L 01/08/2024 17:28 [facility] Chloride 102 96 - 110 mmol/L 01/08/2024 17:28 [facility] CO2 Total 23 22 - 32 mmol/L 01/08/2024 17:28 [facility] Glucose 145(H) 70 - 99 mg/dl 01/08/2024 17:28 [facility] BUN 19 10 - 26 mg/dL 01/08/2024 17:28 [facility] Creatinine 0.68 0.52 - 1.04 mg/dL 01/08/2024 17:28 [facility] eGFR 98 >60 mL/min/1.7 3m2 01/08/2024 17:28 [facility] Total Protein 4.9(L) 6.3 - 8.2 g/dL 01/08/2024 17:28 [facility] Albumin 2.4(L) 3.4 - 4.9 g/dL 01/08/2024 17:28 [facility] Alkaline Phosphatase 368(H) 38 - 126 U/L 01/08/2024 17:28 [facility] AST 41 15 - 46 U/L 01/08/2024 17:28 [facility] ALT 39(H) <35 U/L 01/08/2024 17:28 [facility] Bilirubin, Total 1.3 <1.4 mg/dL 01/08/20 17:28 [facility] Calcium 7.9(L) 8.5 - 10.5 mg/dL 01/08/2024 17:28 T [facility] Albumin/Globulin Ratio 1.0 1.0 - 2.5 01/08/2024 17:28 T [facility] Anion Gap 3(L) 5 - 14 mmol/L 01/08/2024 17:28 T [facility] Blood VENOUS BLOOD / Unknown Venipuncture / Unknown 01/08/2024 17:10 EDT 01/08/2024 17:12 EDT Trinh Alcocer PA-C CHEMISTRY & BLOOD GA S ORDERABLES [facility] [address] [place] [address] * (ABNORMAL) COMPLETE BLOOD COUNT AND DIFFERENTIAL (01/08/2024 17:10 EDT) WBC 7.78 4.00 - 12.40 K/cmm 01/08/2024 17:36 [facility] RBC 2.23(L) 3.86 - 5.04 M/cmm 01/08/2024 17:36 [facility] Hemoglobin 7.9(L) 11.6 - 15.2 g/dL 01/08/2024 17:36 [facility] HCT 23.6(L) 34.9 - 44.4 % 01/08/2024 17:36 [facility] MCV 106(H) 81 - 98 fL 01/08/2024 17:36 [facility] MCH 35.4(H) 26.7 - 33.3 pg 01/08/2024 17:36 [facility] MCHC 33.5 32.1 - 35.9 g/dL 01/08/2024 17:36 [facility] RDW-CV 24.2(H) <14.7 % 01/08/2024 17:36 [facility] RDW-SD 93.9(H) <50.4 fl 01/08/2024 17:36 [facility] PLT 269 141 - 377 K/cmm 01/08/2024 17:36 [facility] MPV 11.0 9.5 - 12.7 fL 01/08/2024 17:36 [facility] % Neutrophils 79.2 % 01/08/2024 17:36 [facility] % Lymphocytes 7.3 % 01/08/2024 17:36 [facility] % Monocytes 11.2 % 01/08/2024 17:36 [facility] % Eosinophils 0.5 % 01/08/2024 17:36 [facility] % Basophils 0.3 % 01/08/2024 17:36 [facility] % Immature Grans 1.5 % 01/08/20 17:36 [facility] Absolute Neutrophils 6.16 2.20 - 8.85 K/cmm 01/08/2024 17:36 [facility] Absolute Lymphocytes 0.57(L) 1.09 - 3.30 K/cmm 01/08/2024 17:36 [facility] Absolute Monocytes 0.87(H) 0.10 - 0.80 K/cmm 01/08/2024 17:36 [facility] Absolute Eosinophils 0.04 0.03 - 0.61 K/cmm 01/08/2024 17:36 [facility] ABS Basophils 0.02 0.01 - 0.11 K/cmm 01/08/2024 17:36 [facility] Absolute Immature Grans 0.12(H) 0.00 - 0.06 K/cmm 01/08/2024 17:36 [facility] Type of Differential: Auto 01/08/2024 17:36 [facility] Blood VENOUS BLOOD / Unknown Venipuncture / Unknown 01/08/2024 17:10 EDT 01/08/2024 17:12 EDT Trinh Alcocer PA-C PACKAGES & DNA PROBE ORDERABLES [facility] [address] [place] [address] * XR CHEST PORTABLE 1 VIEW (01/08/2024 16:57 EDT) Anatomical Region Laterality Modality Computed Radiogr aphy 01/08/2024 17:0 5 EDT Impressions 01/08/2024 17:05 EDT Interposed areas of atelectasis and airspace disease similar as on the comparison CT 3 days prior concerning for bilateral pneumonia. Differential consideration would include drug reaction. [id number] Narrative 01/08/2024 17:05 EDT XR CHEST PORTABLE [...] No concerning bone lesions. Resulting Agency Comment [id number] Procedure Note Sonny Georges MD - 01/08/2024 [...] bilateral pneumonia.Differential consideration would include drug reaction. [id number] Trinh Alcocer PA-C IMG DIAGNOSTIC IMAGI NG ORDERABLES * EKG 12-LEAD (01/08/2024 16:54 EDT) 01/08/2024 16:5 4 EDT Narrative [facility] EKG - 01/09/2024 12:51 EDT ?[facility] Emergency ? Test Date: ?2024-01-08 Pat Name: ? SUNSHINE SUBRAMANIAN ? Department: ?? ED ? Room: ? Gender: ? Female ? Wood Handler: ?? : ?1960 ? Requested By: CASA Bueno Order Number: [id number] ? Reading MD: ?? EFRAIN HILL ? Measurements Intervals ?[place] ? Rate: ? 108 ?P: ?17 MD: ? 140 ?QRS: ?2 QRSD: ? 110 [...] Note Efrain Hill MD - 01/09/2024 [facility] Emergency Test Date: 2024-01-08 Pat Name: SUNSHINE SUBRAMANIAN Department: ED Room: Gender: Female Wood Handler: : 1960 Requested By: CASA Bueno Order Number: [id number] Larisa MD: EFRAIN HILL Measurements Intervals [place] Rate: 108 P: 17 MD: 140 QRS: 2 QRSD: 110 T: 20 QT: 326 QTc: 439 Interpretive Statements SINUS TACHYCARDIA NONSPECIFIC ST ELEVATION ABNORMAL RHYTHM ECG Automated Interpretation. Provider Interpretation to follow. No previous ECG available for comparison I reviewed the tracing and have either agreed or edited the findings inthis report. Electronically Signed On 01-09-2024 12:51:39 EDT by EFRAIN HILL. Micky Mcallistre MD CARDIAC ECG ORDERAB LES Performing Organization Address City/State/[facility] Co de Phone Number [facility] EKG documented in this encounter Visit Diagnoses [...] malnutrition (HCC) (HCC-CMS) Malnutrition of mild degree Abnormal CT of the chest Nonspecific (abnormal) findings on radiological and other examination of other intrathoracic organs Other ascites Malignant neoplasm of female breast, [...] oral, EVERY 6 HOURS PRN, Starting on Michelle 01/19/24 at 0834, Until Michelle 01/19/24 at 1819, Pain, Routine Given 01/19/2024 10:15 [...] mg Given 01/18/2024 8:39 EDT 750 mg benzonatate (TESSALON) capsule 100 mg 100 [...] at 2241, Until Tue01/19/24 at 1819, Routine cyclobenzaprine (FLEXERIL) tablet 10 mg 10 mg, oral, 2 TIMES DAILY PRN, Starting on Tue01/16/24 at 1623, Until Tue01/19/24 at 1819, Muscle Spasms, Routine Given 01/18/2024 17:08 EDT 10 mg Given 01/16/2024 19:26 EDT 10 mg dextromethorphan-guaiFENesin (ROBITUSSIN DM) 10-100 mg/5 mL syrup 10 mL 10 mL, oral, EVERY 4 HOURS PRN, Starting on Tue01/09/24 at 0032, Until Tue01/19/24 at 1819, Cough, Routine Given 01/10/2024 8:54 EDT 10 mL Given 01/09/2024 10:48 EDT 10 mL Given 01/09/2024 6:23 EDT 10 mL fentaNYL citrate (PF) injection intravenous, PRN, Starting on Tue01/11/24 at 1622, Until Tue01/11/24 at 1655, Routine, Intraprocedure Given 01/11/2024 16:30 EDT 50 mcg Port Given 01/11/2024 16:26 EDT 25 mcg Port Given 01/11/2024 16:22 EDT 25 mcg Port furosemide (LASIX) tablet 10 mg 10 mg, oral, DAILY, First dose on Tue01/19/24 at 0900, Until Discontinued, Routine Given 01/19/2024 8:29 EDT 10 mg gabapentin (NEURONTIN) capsule 300 mg 300 [...] 20:35 EDT 600 mg HYDROmorphone (DILAUDID) tablet 2 mg 2 mg, oral, AT BEDTIME PRN, Starting on Tue01/19/24 at 0919, Until Tue01/19/24 at 1819, Pain, muscle cramps, Routine ipratropium-albuteroL (DUONEB) 0.5 mg-3 mg(2.5 mg base)/3 mL nebulizer solution 3 mL 3 mL, nebulization, EVERY 4 HOURS PRN, Starting on Tue01/16/24 at 2100, Until Tue01/19/24 at 1819, Wheezing, Routine midazolam (PF) (VERSED) injection intravenous, PRN, Starting on Tue01/11/24 at 1622, Until Tue01/11/24 at 1655, Routine, Intraprocedure Given 01/11/2024 16:36 EDT 1 mg Port Given 01/11/2024 16:26 EDT 2 mg Port Given 01/11/2024 16:22 EDT 2 mg Port multivitamin (NEPHROVITE) 0.8 mg tablet 1 Tablet 1 Tablet, oral, AT BEDTIME, First dose on Tue01/11/24 at 2100, Until Discontinued, Routine Given 01/18/2024 20:1 6 EDT 1 Tablet Given 01/17/2024 20:12 EDT [...] mg Given 01/18/2024 8:38 EDT 40 mg spironolactone (ALDACTONE) tablet 100 mg 100 mg, oral, DAILY, First dose on Michelle 01/19/24 at 0900, Until Discontinued, Routine Given 01/19/2024 8:29 EDT 100 mg valACYclovir (VALTREX) tablet 500 mg 500 mg, oral, DAILY, 13 doses, First dose on 01/09/24 at 0900, Last dose on 01/21/24 at 0900, Routine Given 01/19/2024 8:30 EDT 500 mg Given 01/18/2024 8:39 EDT 500 mg Given 01/17/2024 10:00 EDT 500 mg venlafaxine (EFFEXOR-XR) XR capsule 75 mg 75 mg, oral, DAILY, First dose on Tue01/09/24 at 0900, Until Discontinued, Routine Given 01/19/2024 8:29 EDT 75 mg Given 01/18/2024 8:39 EDT 75 mg Given 01/17/2024 10:00 EDT 75 mg documented in this encounter Discontinued Medications [...] Michelle 01/12/24 at 1115, Until Discontinued, Routine 1000 (Given - Provider: Criselda Cisneros RN)2011 (Given - Provider: Radha Sexton RN) 0839 (Given - Provider: Aruna Law RN)2017 (Given - Provider: Radha Sexton RN) 08 (Given - Provider: Jaren Soto, SHELLEY) atovaquone (MEPRON) 750 mg/5 mL suspension 750 mg 750 mg, oral, 2 TIMES DAILY, 21 doses, First dose (after last modification) on Tue01/13/24 at 1200, Last dose on Tue01/23/24 at 0900, Routine 1000 (Given - Provider: Criselda Cisneros RN)2011 (Given - Provider: Radha Sexton RN) 0839 (Given - Provider: Aruna Law, SHELLEY)2015 (Given - Provider: Radha Sexton, SHELLEY) 08 [...] 2015 (Given - Provider: Radha Sexton RN) 08 (Given - Provider: Aruna Law, SHELLEY) furosemide (LASIX) tablet 10 mg 10 mg, oral, DAILY, First dose on Tue01/19/24 at 0900, Until Discontinued, Routine 08 (Given - Provider: Jaren Soto, SHELLEY) gabapentin (NEURONTIN) capsule 300 mg 300 mg, oral, 2 TIMES DAILY (0800 & 1400), First dose on Tue01/09/24 at 0800, Until Discontinued, Routine 0900 (Given - Provider: Criselda Cisneros RN)1346 (Given - Provider: Criselda Cisneros RN) 0839 (Given - Provider: Aruna Law, SHELLEY)1348 (Given - Provider: Edwina Kimball RN) 0829 (Given - Provider: Jaren Soto RN)1311 (Given - Provider: Jaren Soto, RN) gabapentin (NEURONTIN) capsule 600 mg 600 mg, oral, AT BEDTIME, First dose on Tue01/08/24 at 2245, Until Discontinued, Routine 2011 (Given - Provider: Radha Sexton RN) 2015 (Given - Provider: Radha Sexton, RN) multivitamin (NEPHROVITE) 0.8 mg tablet 1 Tablet 1 Tablet, oral, AT BEDTIME, First dose on Tue01/11/24 at 2100, Until Discontinued, Routine 2011 (Given - Provider: Radha Sexton RN) 2015 (Given - Provider: Radha Sexton, RN) nystatin (MYCOSTATIN) suspension 500,000 Units 500,000 Units, oral, 4 TIMES DAILY, 28 doses, First dose on Tue01/13/24 at 2100, Last dose on Tue01/20/24 at 1700, Routine 0900 (Given - Provider: Criselda Cisneros, RN)1300 (Given - Provider: Criselda Cisneros RN)1841 (Given - Provider: Richard Forde RN)2011 (Given - Provider: Radha Sexton, SHELLEY) 0844 (Given - Provider: Aruna Law RN)1348 (Given - Provider: Edwina Kimball RN)1757 (Given - Provider: Aruna Law RN)2016 (Given - Provider: Radha Sexton RN) 1015 [...] Until Discontinued 1000 (Given - Provider: Criselda iCsneros RN) 0839 (Given - Provider: Aruna Law RN) 0830 (Given - Provider: Jaren Soto, SHELLEY) predniSONE (DELTASONE) tablet 20 mg(Linked Group 1) [...] First dose (after last modification) on Michelle 8/1/24 at 1115, Until Discontinued, Routine 1000 (Given - Provider: Criselda Cisneros RN) spironolactone (ALDACTONE) tablet 100 mg 100 mg, oral, DAILY, First dose on Tue01/19/24 at 0900, Until Discontinued, Routine 0829 (Given - Provider: Jaren Soto RN) valACYclovir (VALTREX) tablet 500 mg 500 mg, [...] Pain, Routine 1015 (Given - Provider: Jaren Soto RN) alteplase (CATHFLO ACTIVASE) injection 2 mg 2 [...] Until Tue01/19/24 at 1819, Muscle Spasms, Routine 1708 (Given - Provider: Mira Abdi RN) dextromethorphan-guaiF ENesin (ROBITUSSIN DM) 10-100 mg/5 mL syrup 10 mL 10 mL, oral, EVERY 4 HOURS PRN, Starting on Tue01/09/24 at 0032, Until Tue01/19/24 at 1819, Cough, Routine HYDROmorphone (DILAUDID) tablet 1 mg (CANCELED) 1 mg, oral, AT BEDTIME PRN, Starting on Tue01/18/24 at 1104, Until Tue01/19/24 at 0919, Pain, muscle cramps, Routine 2015 (Given - Provider: Radha Sexton, SHELLEY) HYDROmorphone (DILAUDID) tablet 2 mg 2 mg, oral, AT BEDTIME PRN, Starting on Tue01/19/24 at 0919, Until Tue01/19/24 at 181, Pain, muscle cramps, Routine HYDROmorphone (PF) (DILAUDID) 0.5 mg/0.5 mL syringe 0.5 mg (CANCELED) 0.5 mg, intravenous, AT BEDTIME PRN, Starting on Tue01/17/24 at 0853, Until Tue01/18/24 at 1105, Severe Pain 7-10, Routine 2142 (Given - Provider: Donya Mahmood RN) ipratropium-albuteroL [...] on Tue01/16/24 at 2101, Until Tue01/19/24 at 181, Opioid Reversal, Routine Linked Groups Order Group [...] Count Last Ordered Date First Ordered Date acetaminophen (TYLENOL) tablet 500 mg 1 01/2024 HYDROmorphone (DILAUDID) tablet 2 mg 1 01/2024 amoxicillin (AMOXIL) capsule 500 mg 1 01/17 furosemide (LASIX) tablet 10 mg 1 HYDROmorphone (DILAUDID) tablet 1 mg 1 12/2023 spironolactone (ALDACTONE) tablet 100 mg 4 01/18/2024 01/08/2024 cefepime (MAXIPIME) 2,000 mg in sodium chloride (NS MBP) 50 mL IVPB 2 01/17/2024 01/16/2024 HYDROmorphone (PF) (DILAUDID ) 0.5 mg/0.5 mL syringe 0.5 mg 3 01/17/2024 01/10/2024 predniSONE (DELTASONE) tablet 20 mg 3 01/1601/13/2024 predniSONE (DELTASONE) tablet 40 mg 3 01/1601/13/2024 cyclobenzaprine (FLEXERIL) tablet 10 mg 1 0 01/16/2024 cyclobenzaprine (FLEXERIL) tablet 5-10 mg 1 01/16/2024 ipratropium-albuteroL (DUONE B) 0.5 mg-3 mg(2.5 mg base)/3 mL nebulizer solution 3 mL 6 01/16/2024 01/09/2024 naloxone (NARCAN) injection 0.1 mg 1 2023 furosemide (LASIX) tablet 20 mg 2 4 01/08/2024 predniSONE (DELTASONE) tablet 10 mg 2 01/1301/13/2024 predniSONE (DELTASONE) tablet 30 mg 2 01/1301/13/2024 alteplase (CATHFLO ACTIVASE) injection 2 mg 1 01/13/2024 atovaquone (MEPRON) 750 mg/5 mL suspension 1,500 mg 1 01/13/2024 atovaquone (MEPRON) 750 mg/5 mL suspension 750 mg 1 01/13/2024 nystatin (MYCOSTATIN) suspen addie 500,000 Units 1 01/13/2024 predniSONE (DELTASONE) tablet 50 mg 2 01/1201/08/2024 apixaban (ELIQUIS) tablet 5 mg 3 01/12/2024 01/08/2024 furosemide (LASIX) tablet 40 mg 2 4 01/09/2024 iron dextran (INFED) 1,300 m g in sodium chloride (NS) 0.9 % 250 mL IVPB 2 01/11/2024 iron dextran (INFED) 25 mg i n sodium chloride (NS) 0.9 % 50 mL IVPB 1 01/11/2024 multivitamin (NEPHROVITE) 0. 8 mg tablet 1 Tablet 1 01/11/2024 zolpidem (AMBIEN) tablet 5 mg 1 01/11/2024 benzonatate (TESSALON) capsule 100 mg 1 dextromethorphan-guaiFENesin (ROBITUSSIN DM) 10-100 mg/5 mL syrup 10 mL 1 01/09/2024 azithromycin (ZITHROMAX) tablet 250 mg 1 azithromycin (ZITHROMAX) tablet 500 mg 1 blood thinner patient educat ion booklet 1 Each 1 01/08/2024 cefTRIAXone (ROCEPHIN) 1,000 mg in sodium chloride (NS MBP) 50 mL IVPB 1 01/08/2024 cyclobenzaprine (FLEXERIL) tablet 5 mg 1 gabapentin (NEURONTIN) capsule 300 mg gabapentin (NEURONTIN) capsule 600 mg 1 lidocaine (PF) 10 mg/mL (1 % ) injection 2 mg 1 01/08/2024 pantoprazole (PROTONIX) tablet 40 mg 1 12/12 valACYclovir (VALTREX) tablet 500 mg 12/124 venlafaxine (EFFEXOR-XR) XR capsule 75 mg 1 01/08/2024 Diet Count Last Ordered [...] documented as of this encounter Care Teams Sheriffs Detective Relationship Specialty Start Date End Date Linda Blancas MD [address] [place] [address] PCP - General 01/06/11 Adolfo Carreno MD [address] [place] [address], [facility], [address] [place] [phone] General Surgery 04/26/19 documented as of this encounter
--- OUTSIDE RECORDS SUMMARY | 2024-03-20 14:36 | XMS_ITS | Encounter Summary ---
Author Organization [facility] Address [address] [place] [address] Care Team Providers Care Solvent Recoverer Name Role Phone Linda Blancas MD Primary Care Provider [phone] Adolfo Carreno MD Unavailable [phone] Reason for Referral * Radiology Services (STAT) - Authorization Not Required Specialty Diagnoses / Procedures Referred By Contac t Referred To Contact Diagnoses Primary malignant neoplasm of breast with metastasis (HCC-CMS) Procedures CT CHEST W CONTRAST CT CHEST WO CONTRAST Alisson Carreon MD [address] [place] [phone] [place] Referral ID Status Reason Start Date Expiration Date Visits Requested Visits Authorized [id number] Authorization Not Required 12/29/2023 1 1 Reason for Visit * Radiology Services (STAT) - Authorization Not Required Specialty Diagnoses / Procedures Referred By Doug hearn Referred To Contact Diagnoses Primary malignant neoplasm of breast with metastasis (HCC-CMS) Procedures CT CHEST W CONTRAST CT CHEST WO CONTRAST Alisson Carreon MD [address] [place] [phone] [place] Referral ID Status Reason Start Date Expiration Date Visits Requested Visits Authorized [id number] Authorization Not Required 12/29/2023 1 1 Encounter Details Date Type Department Care Team (Latest Contact Info) Description 01/05/2024 13:51 EDT - 01/05/2024 13:52 EDT Hospital Encounter [facility] CT Scan [address] [place] [address] Primary malignant neoplasm of breast with metastasis (HCC-CMS) Discharge Disposition: Home or Self Care Social History Tobacco Use Types Packs/Day Years Used Date Smoking Tobacco: Never Passive Smoke Exposure: Never Smokeless Tobacco: Never Alcohol Use Standard Drinks/Week Comments Not Currently 1 (1 standard drink = 0.6 oz pur e alcohol) [facility] Utilities Answer Date Recorded In [...] 04/02/2024 10:30 EDT Appointment [facility] Interventional Radiology Unit [address] [place] [address] [phone] 04/02/2024 15:15 EDT Office Visit [facility] Surgical Oncology - [address] [id number] Adolfo Carreno MD [address] [place] [phone] 04/05/2024 9:30 EDT Telemedicine [facility] [address] [place] [address] [phone] Chichi Woods MD [address] [place] [phone] 04/11/2024 15:00 EDT Telemedicine [facility] Hematology & Oncology - [address] [phone] Alisson Carreon MD [address] [place] [phone] 04/13/2024 13:30 EDT Appointment [facility] Hematology & Oncology [address] [phone] 04/13/2024 14:00 EDT Appointment [facility] Hematology & Oncology [address] [phone] 04/16/2024 10:00 EST Telemedicine [facility] [address] [place] [address] [phone] Chichi Woods MD [address] [place] [phone] 04/24/2024 9:00 EST Appointment [facility] Radiology CT Outpatient - [address] [id number] 04/24/2024 11:00 EST Appointment [facility] Breast Imaging - [facility] [address] [place] [address] 04/27/2024 12:00 EST Appointment [facility] Hematology & Oncology - [address] [address] 05/02/2024 15:00 EST Telemedicine [facility] Hematology & Oncology [address] [phone] Alisson Carreon MD [address] [place] [address], Level 2 [place] [phone] 05/04/2024 10:15 EST Ancillary Procedure [facility] Cardiology - [place] [address] 05/04/2024 11:30 EST Appointment [facility] Hematology & Oncology [address] [address] 05/04/2024 12:00 EST Appointment [facility] Hematology & Oncology [address] [phone] 06/12/2024 13:00 EST Appointment [facility] Radiology CT - [address] [phone] documented as of this encounter Procedures Procedure Name Priority Date/Time Associated Diagnosis Comments CT CHEST W CONTRAST STAT 01/05/2024 1 4:26 EDT Primary malignant neoplasm of breast with metastasis (HCC-CMS) documented in this encounter Results * CT CHEST W CONTRAST (01/05/2024 14:26 [...] spleen with a large amount of ascites. [id number] Narrative 01/05/2024 15:[address] CHEST W CONTRAST ??01/05/2024 1:56 PM Clinical History/Comments: Respiratory illness, nondiagnostic xray; desaturation/ SOB;C50.919:Primary malignant neoplasm of breast with metastasis (HCC-CMS) TECHNIQUE: The exam is performed with intravenous contrast. In addition to joint sealer imaging, axial, sagittal and coronal reconstruction imaging [...] Hardware within the lumbar spine on the joint sealer image. ?Surrounding soft tissues: Bilateral breast prostheses [...] exam otherwise appears unremarkable. Resulting Agency Comment [id number] Procedure Note Yuval Kapadia MD - 01/05/2024 [...] roundedlow- attenuation foci consistent with metastatic disease. Dgb-[id number] within the spleen is, in places, better [...] and spleen with a large amount ofascites. [id number] Alisson Carreon MD IMG CT ORDERABLES documented in this encounter Visit Diagnoses Diagnosis Primary malignant neoplasm of breast with metastasis (HCC-CMS) documented in this encounter Administered Medications Inactive Administered Medications - up to 3 most recent administrations Medication Order MAR Action Action Date Dose Rate Site iopamidoL (ISOVUE-370) injection 100 mL 100 mL, intravenous, Once in imaging, 1 dose, Starting on Michelle 01/05/24 at 1352, Until Michelle 01/05/24 at 1416, Routine, Imaging Protocol Orders Given 01/05/2024 14:16 EDT 88 mL documented in this encounter Orders Medications Ordered That Vj ht Not Have Been Administered Count Last Ordered Date First Ordered Date iopamidoL (ISOVUE-370) injection 100 mL 1 0 01/05/2024 documented in this encounter Care Teams Solvent Recoverer Relationship Specialty Start Date End Date Linda Blancas MD [address] [place] [address] PCP - General 01/06/11 Adolfo Carreno MD [address] [facility], [facility], [address] [place] [phone] General Surgery 04/26/19 documented as of this encounter
--- OUTSIDE RECORDS SUMMARY | 2024-03-20 14:36 | XMS_ITS | Encounter Summary ---
Author Organization [facility] Address [address] [place] [address] Care Team Providers Care Maternity Nurse Name Role Phone Linda Blancas MD Primary Care Provider [phone] Adolfo Carreno MD Unavailable [phone] Encounter Details Date Type Department Care Team (Late st Contact Info) Description 01/05/2024 Orders Only [facility] Hematology & Oncology - [address] [phone] Alisson Carreon MD [address] [facility], Level 2 [place] [address] Social History Tobacco Use Types Packs/Day Years Used Date Smoking Tobacco: Never Passive Smoke Exposure: Never Smokeless Tobacco: Never Alcohol Use Standard Drinks/Week Comments Not Currently 1 (1 standard drink = 0.6 oz pur e alcohol) [facility] Utilities Answer Date Recorded In the past 12 months has [employer] electric, gas, oil, or water [employer] threatened to shut off services in your [...] any time in the past 12 m [facility], were you homeless or living in a nursing home (including now)? No 12/13/2023 Interpersonal Safety [...] Progress Notes * Alisson Carreon MD - 01/05/[address] chest results with Patchy areas of groundglass type opacity within the lungs Sine this could be from Enhertu (that is why we follow CT every 9-12 weeks) so we need to hold Enhertu for 6-9 weeks, repeat CT chest (Nilson, kindly help schedule this) then resume Enhertu when improved/resolved Ana Laura- can you please let pt know and also pls send results to pulmonary RN to make sure they don't want to perform any other tests and see if they want to increase steroid dose documented in this encounter Plan of Treatment Upcoming Encounters Date Type Department Care Team (Late st Contact Info) Description 04/02/2024 10:30 EDT Appointment [facility] Interventional Radiology Unit [address] [place] [address] 04/02/2024 15:15 EDT Office Visit [facility] Surgical Oncology - [address] [phone] Adolfo Carreno MD [address] [place] [phone] 04/05/2024 9:30 EDT Telemedicine [facility] Palliative Care Services [address] [place] [address] [phone] Chichi Woods MD [address] [place] [address], [address] [phone] 04/11/2024 15:00 EDT Telemedicine [facility] Hematology & Oncology - [address] 213811 Alisson Carreon MD [address] [place] [address] 2 [place] [phone] 04/13/2024 13:30 EDT Appointment [facility] Hematology & Oncology - [address] [phone] 04/13/2024 14:00 EDT Appointment [facility] Hematology & Oncology - [address] [address] 04/16/2024 10:00 EST Telemedicine [facility] Palliative Care Services [address] [place] [address] [phone] Chichi Woods MD [address] [place] [phone] 04/24/2024 9:00 EST Appointment [facility] Radiology CT Outpatient - [address] [address] 04/24/2024 11:00 EST Appointment [facility] Breast Imaging - [facility] S [address] 159061 04/27/2024 12:00 EST Appointment [facility] Hematology & Oncology - [address] 627351 05/02/2024 15:00 EST Telemedicine [facility] Hematology & Oncology - [address] 886291 Alisson Carreon MD [address] [place] [address], Level 2 [place] [phone] 05/04/2024 10:15 EST Ancillary Procedure [facility] Cardiology - [address] [place], [place] [phone] 05/04/2024 11:30 EST Appointment [facility] Hematology & Oncology - [address] 204131 05/04/2024 12:00 EST Appointment [facility] Hematology & Oncology - [address] 165521 06/12/2024 13:00 EST [facility]ment [facility] Rad[facility] - [address] [address] documented as of this encounter Visit Diagnoses Not on filedocumented in this encounter Care Teams Maternity Nurse Relationship Specialty Start Date End Date Linda Blancas MD [facility] [address] [place] [address] PCP - General 01/06/11 Adolfo Carreno MD [address] [place] [address], [facility], Level 2 [place] [address] General Surgery 04/26/19 documented as of this encounter
--- OUTSIDE RECORDS SUMMARY | 2024-03-20 14:36 | XMS_ITS | Encounter Summary ---
Author Organization [facility] Address [address] [place] [address] Care Team Providers Care [employer] Supervisor Name Role Phone Linda Blancas MD Primary Care Provider [phone] Adolfo Carreno MD Unavailable [phone] Encounter Details Date Type Department Care Team (Latest Contact Info) Description 01/08/2024 Travel Social History Tobacco Use Types Packs/Day Years Used Date Smoking Tobacco: Never Passive Smoke Exposure: Never Smokeless Tobacco: Never Alcohol Use Standard Drinks/Week Comments Not Currently 1 (1 standard drink = 0.6 oz pur e alcohol) [facility] Utilities Answer Date Recorded In the [...] medical appointments or from getting medications? No 12/12 In the past 12 months, has l ack of transportation kept you from meetings, work, or from getting things needed for daily living? No 01/08/2024 Housing Stability Vital Sign Answer Rubén e Recorded In the last 12 months, was t here a time when you were not able to pay the mortgage or rent on time? No 01/08/2024 In the past 12 months, how m any times have you moved where you were living? 0 01/08/2024 At any time in the past 12 m [facility], were you homeless or living in a snf (including now)? No 01/08/2024 Interpersonal Safety Answer Date Record ed How [...] Info) Description 04/02/2024 10:[address] [facility] Interventional Radiology Unit [address] [place] [address] [phone] 04/02/2024 15:[address] [facility] Surgical Oncology - [place] [address] [place] [address] Adolfo Carreno MD [address] [place] [address] 2 [place] [phone] 04/05/2024 9:30 EDT Telemedicine [facility] Palliative Care Services [address] [place] [address] [phone] Chichi Woods MD [address] [place] [phone] 04/11/2024 15:00 EDT Telemedicine [facility] Hematology & Oncology - [address] 860861 Alisson Carreon MD [address] [place] [address] 2 [place] [phone] 04/13/2024 13:30 EDT Appointment [facility] Hematology & Oncology - [address] [phone] 04/13/2024 14:00 EDT Appointment [facility] Hematology & Oncology - [address] 396141 04/16/2024 10:00 EST Telemedicine [facility] Palliative Care Services [address] [place] [address] [phone] Chichi Woods MD [address] [place] [phone] 04/24/2024 9:00 EST Appointment [facility] Radiology CT Outpatient - [address] 421011 04/24/2024 11:[address] [facility] Breast Imaging - [address] 697441 04/27/2024 12:00 EST Appointment [facility] Hematology & Oncology [address] [address] 05/02/2024 15:00 EST Telemedicine [facility] Hematology & Oncology [address] [address] Alisson Carreon MD [address] [place] [address] 2 [place] [phone] 05/04/2024 10:[address] [facility] Cardiology [place] [address] [place] [address] 05/04/2024 11:30 EST Appointment [facility] Hematology & Oncology [address] [address] 05/04/2024 12:00 EST Appointment [facility] Hematology & Oncology [address] [address] 06/12/2024 13:00 EST Appointment [facility] Radiology CT - [address] 127641 documented as of this encounter Visit Diagnoses Not on filedocumented in this encounter Additional Health Concerns Infection Onset Date Last Indicated Resolved Time R/O COVID-19 01/08/2024 01/08/2024 01/08/2024 18:2 6 EDT documented as of this encounter Care Teams [employer] Supervisor Relationship Specialty Start Date End Date Linda Blancas MD [facility] [address] [place] [address] PCP - General 01/06/11 Adolfo Carreno MD [address] [place] [phone] General Surgery 04/26/19 documented as of this encounter
--- OUTSIDE RECORDS SUMMARY | 2024-03-20 14:36 | XMS_ITS | Encounter Summary ---
Author Organization [facility] Address [address] [place] [address] Care Team Providers Care Hedge Fund Accountant Name Role Phone Linda Blancas MD Primary Care Provider [phone] Adolfo Carreno MD Unavailable [phone] Reason for Referral * Radiology Services (Routine/Next Available) - Authorization Not Required Specialty Diagnoses / Procedures [facility] Referred To Contact Diagnoses Other ascites Procedures IR PARACENTESIS-RADIOLOGY Hugo Vergara MD PhD [address] [place] [phone] [facility] Referral ID Status Reason Start Date Expiration Date Visits Requested Visits Authorized [id number] Authorization Not Required 01/06/2024 1 1 Reason for Visit * Reason Onset Date Comments Other 01/06/2024 Encounter Details Date Type Department Care Team (Late st Contact Info) Description 01/06/2024 Telephone [facility] [facility] Gastroenterology - [address] [address] Hugo Vergara MD PhD [address] [place], [place] [phone] Other Social History Tobacco Use Types Packs/Day Years Used Date Smoking Tobacco: Never Passive Smoke Exposure: Never Smokeless Tobacco: Never Alcohol Use Standard Drinks/Week Comments Not Currently 1 (1 standard drink = 0.6 oz pur e alcohol) [facility] Utilities Answer Date Recorded In [...] time in the past 12 m [facility], were you homeless or living in [...] encounter Miscellaneous Notes * Telephone Encounter - Greer Ruby RN - 01/06/2024 1551 EDT Patient is about a 2/10 - more difficulty breathing than anything but is following closely with pulmonology. They saw the results from the recent CT scan ordered by Dr Carreon and are concerned because it notes large amount of ascites and that the liver is shrunken. They would like to discuss this and wonder if there is a large amount of ascites what is the criteria for having another paracentesis? She is quite bloated and in pain, uncomfortable from ascites, having trouble urinating. Attribute sob to pulm issues but know that ascites is a factor as well. They are upset because they feel they are not getting enough answers. They would like the following to happen: Paracentesis scheduled to help with current volume Standing orders placed for paracentesis Televideo appointment to discuss state of liver * Telephone Encounter - Jaren Stallings - 01/06/2024 1424 EDT Patient & returning call to Elisabeth, would like a call back Today. They have several question and would like to discuss before the weekend. Please call documented in this encounter Plan of Treatment Upcoming Encounters Date Type Department Care Team (Late st Contact Info) Description 04/02/2024 10:30 EDT Appointment [facility] Interventional Radiology Unit [address] [place] [address] [phone] 04/02/2024 15:15 EDT Office Visit [facility] [facility] Surgical Oncology - [address] [address] Adolfo Carreno MD [address] [place] [phone] 04/05/2024 9:30 EDT Telemedicine [facility] Palliative Care Services [address] [place] [address] [phone] Chichi Woods MD [address] [place] [phone] 04/11/2024 15:00 EDT Telemedicine [facility] Hematology & Oncology - [address] [phone] Alisson Carreon MD [address] [place] [phone] 04/13/2024 13:30 EDT Appointment [facility] Hematology & Oncology - [address] [address] 04/13/2024 14:00 EDT Appointment [facility] Hematology & Oncology [address] 101641 04/16/2024 10:00 EST Telemedicine [facility] Palliative Care Services [address] [place] [address] [phone] Chichi Woods MD [address] [place] [phone] 04/24/2024 9:00 EST Appointment [facility] Radiology CT Outpatient - [address] [address] 04/24/2024 11:00 EST Appointment [facility] Breast Imaging - [facility] S [place] [address] [place] [address] 04/27/2024 12:00 EST Appointment [facility] Hematology & Oncology - [address] [address] 05/02/2024 15:00 EST Telemedicine [facility] Hematology & Oncology - [address] 190721 Alisson Carreon MD [address] [place] [address], [address] [place] [phone] 05/04/2024 10:15 EST Ancillary Procedure [facility] [place] [facility] Cardiology - [address] [place] [address] 05/04/2024 11:30 EST Appointment [facility] Hematology & Oncology - [address] [address] 05/04/2024 12:00 EST Appointment [facility] Hematology & Oncology - [address] 388231 06/12/2024 13:00 EST Appointment [facility] Radiology CT - [address] 039001 documented as of this encounter Results * IR PARACENTESIS-RADIOLOGY (01/09/2024 9:59 EDT) Anatomical Region Laterality Modality N/A X-Ray Angiograph y 01/10/2024 10:1 2 EDT Impressions 01/10/2024 10:12 EDT 1. Successful ultrasound guided paracentesis. [id number] Narrative 01/10/2024 10:12 EDT ULTRASOUND-GUIDED PARACENTESIS History: [...] current guidelines was used. Resulting Agency Comment [id number] Procedure Note Scriver, David Rowley MD - [...] used. IMPRESSION 1. Successful ultrasound guided paracentesis. [id number] Hugo Vergara MD PhD IMG IR ORDERABL ES documented in this encounter Visit Diagnoses Diagnosis Other ascites- Primary documented in this encounter Additional Health Concerns Infection Onset Date Last Indicated Resolved Time R/O COVID-19 01/08/2024 01/08/2024 01/08/2024 18:2 6 EDT documented as of this encounter Care Teams Hedge Fund Accountant Relationship Specialty Start Date End Date Linda Blancas MD [address] [place] [address] PCP - General 01/06/11 Adolfo Carreno MD [address] [place] [address], [facility], Level [address] [place] [address] General Surgery 04/26/19 documented as of this encounter
--- OUTSIDE RECORDS SUMMARY | 2024-03-20 14:37 | XMS_ITS | Encounter Summary ---
Author Organization [facility] Address [address] [place] [address] Care Team Providers Care Ccna Name Role Phone Linda Blancas MD Primary Care Provider [phone] Adolfo Carreno MD Unavailable [phone] Reason for Referral * Radiology Services (STAT) - Authorization Not Required Specialty Diagnoses / Procedures Referred By Contac t Referred To Contact Diagnoses Primary malignant neoplasm of breast with metastasis (HCC-CMS) Procedures CT CHEST W CONTRAST CT CHEST WO CONTRAST Alisson Carreon MD [address] [place], [address] [place] [address] [facility] Referral ID Status Reason Start Date Expiration Date Visits Requested Visits Authorized [id number] Authorization Not Required 12/29/2023 1 1 Reason for Visit * Reason Onset Date Comments Follow-up 12/29/2023 Encounter Details Date Type Department Care Team (Late st Contact Info) Description 12/29/2023 Telephone [facility] Hematology & Oncology - [address] [address] Zulma Acevedo RN Follow-up Social History Tobacco Use Types Packs/Day Years Used Date Smoking Tobacco: Never Passive Smoke Exposure: Never Smokeless Tobacco: Never Alcohol Use Standard Drinks/Week Comments Not Currently 1 (1 standard drink = 0.6 oz pur e alcohol) [facility] Utilities Answer Date Recorded In [...] in a long term (including now)? No 12/13/2023 Interpersonal Safety Answer [...] Miscellaneous Notes * Telephone Encounter - Sandhya Estrada - 12/30/2023 1509 EDT Patient called regarding 01/01 cancelled scan @ [facility]. Explained that before scan could be scheduled @ [facility] as requested, it needed to be cancelled @ [facility]. Patient confirmed and will follow up with [facility] for scheduling. * Telephone Encounter - Zulma Acevedo RN - 12/29/2023 1050 EDT Per provider, stat chest CT w/o contrast pended to provider. Will reach out to pt once scheduled. documented in this encounter Plan of Treatment Upcoming Encounters Date Type Department Care Team (Late st Contact Info) Description 04/02/2024 10:30 EDT Appointment [facility] Interventional Radiology Unit [address] [place], [place] 250851 04/02/2024 15:15 EDT Office Visit [facility] Surgical Oncology - [facility] [address] [place], [place] 473151 Adolfo Carreno MD [address] [place], [address] [place] [phone] 04/05/2024 9:30 EDT Telemedicine [facility] - [facility] Palliative Care Services [address] [place], [place] [phone] Chichi Woods MD [address] [place] [address] 262 [place] [phone] 04/11/2024 15:00 EDT Telemedicine [facility] Hematology & Oncology - [address] 190551 Alisson Carreon MD [address] [place] [address], [address] [place] [phone] 04/13/2024 13:30 EDT Appointment [facility] Hematology & Oncology [address] 448761 04/13/2024 14:00 EDT Appointment [facility] Hematology & Oncology [address] [address] 04/16/2024 10:00 EST Telemedicine [facility] - [facility] Palliative Care Services [address] [place] [address] Chichi Woods MD [address] [place] [phone] 04/24/2024 9:00 EST Appointment [facility] Radiology CT Outpatient - [address] 247371 04/24/2024 11:00 EST Appointment [facility] Breast Imaging - [address] [phone] 04/27/2024 12:00 EST Appointment [facility] Hematology & Oncology - [address] [phone] 05/02/2024 15:00 EST Telemedicine [facility] Hematology & Oncology - [address] [phone] Alisson Carreon MD [address] [facility], [facility], Level [address] [place] [phone] 05/04/2024 10:15 EST Ancillary Procedure [facility] Cardiology - [address] [place] [address] 05/04/2024 11:30 EST Appointment [facility] Hematology & Oncology - [address] 317481 05/04/2024 12:00 EST Appointment [facility] Hematology & Oncology - [address] [phone] 06/12/2024 13:00 EST Appointment [facility] Radiology CT - [address] 865531 documented as of this encounter Results * CT CHEST W [...] spleen with a large amount of ascites. [id number] Narrative 01/05/2024 15:[address] CHEST W CONTRAST ??01/05/2024 1:56 PM Clinical History/Comments: Respiratory illness, nondiagnostic xray; desaturation/ SOB;C50.919:Primary malignant neoplasm of breast with metastasis (HCC-CMS) TECHNIQUE: The exam is performed with intravenous contrast. In addition to oil transport driver imaging, axial, sagittal and coronal reconstruction imaging [...] Hardware within the lumbar spine on the oil transport driver image. ?Surrounding soft tissues: Bilateral breast prostheses [...] exam otherwise appears unremarkable. Resulting Agency Comment [id number] Procedure Note Yuval Kapadia MD - 01/05/2024 [...] roundedlow- attenuation foci consistent with metastatic disease. Kma-fzplvhbdia-[id number] within the spleen is, in places, better [...] and spleen with a large amount ofascites. [id number] Alisson Carreon MD IMG CT ORDERABLES documented in this encounter Visit Diagnoses Diagnosis Primary malignant neoplasm of breast with metastasis (HCC-CMS)- Primary Oxygen desaturation Hypoxemia Primary malignant neoplasm of breast with metastasis (HCC-CMS) documented in this encounter Care Teams Ccna Relationship Specialty Start Date End Date Linda Blancas MD [address] [place] [address] 30 [place] [address] PCP - General 01/06/11 Adolfo Carreno MD [address] [place] [address] 2 [place] [phone] General Surgery 04/26/19 documented as of this encounter
--- OUTSIDE RECORDS SUMMARY | 2024-03-20 14:37 | XMS_ITS | Encounter Summary ---
Author Organization [facility] Address [address] [place] [address] Care Team Providers Care Speech Coach Name Role Phone Linda Blancas MD Primary Care Provider [phone] Adolfo Carreno MD Unavailable [phone] Augustina Colin MD PhD Unavailable Unavailable Encounter Details Date Type Department Care Team (Late st Contact Info) Description 12/20/[address] [facility] Cancer Center Hematology & Oncology - [facility] [address] [place], [place] 2142[address] Daily, SHELLEY Du Social History Tobacco Use Types Packs/Day Years Used Date Smoking Tobacco: Never Passive Smoke Exposure: Never Smokeless Tobacco: Never Alcohol Use Standard Drinks/Week Comments Not Currently 1 (1 standard drink = 0.6 oz pur e alcohol) [facility] Utilities Answer Date Recorded In the past 12 months has e [employer], gas, oil, or water [employer] threatened to shut off services in your [...] as of this encounter Progress Notes * Daily, SHELLEY Du - 12/20/2023 3528 EDT Hydration therapy plan added for PMC for next week, in case pt has N/V per Dr Carreon's request. documented in this encounter Plan of Treatment Upcoming Encounters Date Type Department Care Team (Late st Contact Info) Description 04/02/2024 10:[address] [facility] Interventional Radiology Unit [address] [place] [address] [phone] 04/02/2024 15:[address] [facility] Surgical Oncology - [address] 054121 Adolfo Carreno MD [address] [place] [address] [phone] 04/05/2024 9:30 EDT Telemedicine [facility] Palliative Care Services [address] [place] [address] [phone] Chichi Woods MD [address] [place] [address] [phone] 04/11/2024 15:00 EDT Telemedicine [facility] Hematology & Oncology [address] 545171 Alisson Carreon MD [address] [place] [address] [phone] 04/13/2024 13:30 EDT Appointment [facility] Hematology & Oncology [address] [phone] 04/13/2024 14:00 EDT Appointment [facility] Hematology & Oncology [address] [id number] 04/16/2024 10:00 EST Telemedicine [facility] Palliative Care Services [address] [place] [address] [phone] Chichi Woods MD [address] [place] [address], [place] [address] [place] [phone] 04/24/2024 9:00 EST Appointment [facility] Radiology CT Outpatient - [address] [id number] 04/24/2024 11:[address] [facility] Breast Imaging - [facility] S [address] [id number] 04/27/2024 12:00 EST Appointment [facility] Hematology & Oncology [address] [id number] 05/02/2024 15:00 EST Telemedicine [facility] Hematology & Oncology [address] [phone] Alisson Carreon MD [address] [place] [address], Level 2 [place] [phone] 05/04/2024 10:[address] [facility] Cardiology [place] [place] [address] 05/04/2024 11:30 EST Appointment [facility] Hematology & Oncology [address] [id number] 05/04/2024 12:00 EST Appointment [facility] Hematology & Oncology [address] [id number] 06/12/2024 13:00 EST Appointment [facility] Radiology CT - [address] [phone] documented as of this encounter Visit Diagnoses Not on filedocumented in this encounter Care Teams Speech Coach Relationship Specialty Start Date End Date Linda Blancas MD [facility] [address] [place] [address] PCP - General 01/06/11 Adolfo Carreno MD [address] [place] [phone] General Surgery 04/26/19 Augustina Colin MD PhD [address] [place] [phone] Medical Oncology 04/26/19 documented as of this encounter
--- OUTSIDE RECORDS SUMMARY | 2024-03-20 14:37 | XMS_ITS | Encounter Summary ---
Author Organization [facility] Address [address] [place] [address] Care Team Providers Care Enrolled Nurse Name Role Phone Linda Blancas MD Primary Care Provider [phone] Adolfo Carreno MD Unavailable Reason for Visit * Reason Onset Date Comments Appointment Related 12/29/2023 Encounter Details Date Type Department Care Team (Late st Contact Info) Description 12/29/2023 Telephone [facility] Cancer [facility] [address] [place], [place] [phone] Alisson Carreon MD 111 [facility], Level 2 [place] [phone] Appointment Related Social History Tobacco Use Types Packs/Day Years Used Date Smoking Tobacco: Never Passive Smoke Exposure: Never Smokeless Tobacco: Never Alcohol Use Standard Drinks/Week Comments Not Currently 1 (1 standard drink = 0.6 oz pur e alcohol) [facility] Utilities Answer Date Recorded In the past 12 months has [employer], gas, oil, or water company threatened [...] in the past 12 m [facility], were you homeless or living in a longterm (including now)? No 12/13/2023 Interpersonal Safety Answer [...] * Telephone Encounter - Sandhya Estrada - 12/29/2023 1221 EDT Received secure chat that STAT CT scan was ordered. Called radiology - CT scan scheduled on Tuesday, 01/01 @ 1000 - arrival time @ 0945. LMOM. Left PAC# documented in this encounter Plan of Treatment Upcoming Encounters Date Type Department Care Team (Late st Contact Info) Description 04/02/2024 10:30 EDT Appointment [facility] Interventional Radiology Unit [address] [place] [address] [phone] 04/02/2024 15:15 EDT Office Visit [facility] Surgical Oncology - [address] [phone] Aodlfo Carreno MD [address] [place] [address] 2 [place] [phone] 04/05/2024 9:30 EDT Telemedicine [facility] - [facility] Palliative Care Services [address] [place] [address] [phone] Chichi Woods MD [address] [place] [address], [address] [phone] 04/11/2024 15:00 EDT Telemedicine [facility] Hematology & Oncology [address] [phone] Alisson Carreon MD [address] [place] [address] 2 [place] [phone] 04/13/2024 13:30 EDT Appointment [facility] Hematology & Oncology [address] [phone] 04/13/2024 14:00 EDT Appointment [facility] Hematology & Oncology - [address] [id number] 04/16/2024 10:00 EST Telemedicine [facility] - [facility] Palliative Care Services [address] [place] [address] 17553 Chichi Woods MD 111 [facility], [address] [phone] 04/24/2024 9:00 EST Appointment [facility] Radiology CT Outpatient - [address] [id number] 04/24/2024 11:00 EST Appointment [facility] Breast Imaging - [facility] S [place] [address] [place], [place] 750201 04/27/2024 12:00 EST Appointment [facility] Hematology & Oncology - [address] [id number] 05/02/2024 15:00 EST Telemedicine [facility] Hematology & Oncology - [address] 460321 Alisson Carreon MD [address] [place] [address], [facility], Level [address] [place] [phone] 05/04/2024 10:15 EST Ancillary Procedure [facility] Cardiology [place] [place] [address] 05/04/2024 11:30 EST Appointment [facility] Hematology & Oncology - [address] [phone] 05/04/2024 12:00 EST Appointment [facility] Hematology & Oncology - [address] [address] 06/12/2024 13:00 [facility] Rad[facility] - [address] [id number] documented as of this encounter Visit Diagnoses Not on filedocumented in this encounter Care Teams Enrolled Nurse Relationship Specialty Start Date End Date Linda Blancas MD [address] [place] [address] 30 [place] [address] PCP - General 01/06/11 Adolfo Carreno MD [address] [place] [address] 2 [place] [phone] General Surgery 04/26/19 documented as of this encounter
--- OUTSIDE RECORDS SUMMARY | 2024-03-20 14:37 | XMS_ITS | Encounter Summary ---
Author Organization [facility] Address [address] [place] [address] Care Team Providers Care Wastewater Technician Name Role Phone Linda Blancas MD Primary Care Provider [phone] Adolfo Carreno MD Unavailable [phone] Augustina Colin MD PhD Unavailable Unavailable Encounter Details Date Type Department Care Team (Late st Contact Info) Description 12/16/2023 Orders Only [facility] Cancer Center Hematology & Oncology - [address] [phone] Alisson Carreon MD 111 [facility], Level [address] [place] [address] Social History Tobacco Use Types Packs/Day Years Used Date Smoking Tobacco: Never Passive Smoke Exposure: Never Smokeless Tobacco: Never Alcohol Use Standard Drinks/Week Comments Not Currently 1 (1 standard drink = 0.6 oz pur e alcohol) [facility] Utilities Answer Date Recorded In the past 12 months has [employer], gas, oil, or water company threatened [...] living in a intermediate (including now)? No 12/13/2023 Interpersonal Safety Answer [...] Contact Info) Description 04/02/2024 10:30 EDT Appointment [facility] Interventional Radiology Unit [address] [place] [address] [phone] 04/02/2024 15:15 EDT Office Visit [facility] Surgical Oncology - [address] 075131 Adolfo Carreno MD [address] [place] [address] [phone] 04/05/2024 9:30 EDT Telemedicine [facility] Palliative Care Services [address] [place] [address] [phone] Chichi Woods MD [address] [place] [address] [phone] 04/11/2024 15:00 EDT Telemedicine [facility] Hematology & Oncology - [address] [phone] Alisson Carreon MD [address] [place] [address] [phone] 04/13/2024 13:30 EDT Appointment [facility] Hematology & Oncology [address] [phone] 04/13/2024 14:00 EDT Appointment [facility] Hematology & Oncology [address] [phone] 04/16/2024 10:00 EST Telemedicine [facility] Palliative Care Services [address] [place] [address] [phone] Chichi Woods MD [address] [place] [address] [phone] 04/24/2024 9:00 EST Appointment [facility] Radiology CT Outpatient - [address] [id number] 04/24/2024 11:00 EST Appointment [facility] Breast Imaging - [facility] S [place] [address] [place], [place] [phone] 04/27/2024 12:00 EST Appointment [facility] Hematology & Oncology - [address] [address] 05/02/2024 15:00 EST Telemedicine [facility] Hematology & Oncology - [address] 616791 Alisson Carreon MD [address] [place] [address], [facility] 2 [place] [phone] 05/04/2024 10:15 EST Ancillary Procedure [facility] Cardiology - [address] [place] [address] 05/04/2024 11:30 EST Appointment [facility] Hematology & Oncology - [address] [address] 05/04/2024 12:00 EST Appointment [facility] Hematology & Oncology - [address] [phone] 06/12/2024 13:00 EST Appointment [facility] Radiology CT - [address] [phone] documented as of this encounter Visit Diagnoses Not on filedocumented in this encounter Care Teams Wastewater Technician Relationship Specialty Start Date End Date Linda Blancas MD [address] [place] [address] 30 [place] [address] PCP - General 01/06/11 Adolfo Carreno MD 111 [facility] 2 [place] [phone] General Surgery 04/26/19 Augustina Colin MD PhD 111 [facility] 2 [place] [phone] Medical Oncology 04/26/19 documented as of this encounter
--- OUTSIDE RECORDS SUMMARY | 2024-03-20 14:37 | XMS_ITS | Encounter Summary ---
Author Organization [facility] Address [address] [place] [address] Care Team Providers Care Slurry Tank Tender Name Role Phone Linda Blancas MD Primary Care Provider [phone] Adolfo Carreno MD Unavailable [phone] Augustina Colin MD PhD Unavailable Unavailable Encounter Details Date Type Department Care Team (Late st Contact Info) Description 12/26/[address] [facility] Cancer Center Hematology & Oncology - [facility] [address] [place] [address] Marian Rodarte, RN [address] [place] [address] Primary malignant neoplasm of breast with metastasis (HCC-CMS) (Primary Dx) Social History Tobacco Use Types Packs/Day Years Used Date Smoking Tobacco: Never Passive Smoke Exposure: Never Smokeless Tobacco: Never Alcohol Use Standard Drinks/Week Comments Not Currently 1 (1 standard drink = 0.6 oz pur e alcohol) [facility] Utilities Answer Date Recorded In the past 12 months has e [employer], gas, oil, or water [email or web address] threatened to shut off services in your [...] living in a jail (including now)? No 12/13/2023 Interpersonal Safety Answer Date Record ed How often does anyone, manuela yung family, hit, punch or physically hurt you? 12/12/2023 How often does anyone, joselynsetfanie aga family, insult, scream, curse or threaten [...] Dispensed Refills Start Date End Da te dexAMETHasone (DECADRON) 4 mg tabletIndications:Primar y malignant neoplasm of breast with metastasis (HCC-CMS) Take 2 Tablets by mouth daily. Take on days 2 and 3 after chemotherapy. 12 Tablet 5 12/26/2023 01/31/2024 documented in this encounter Plan of Treatment Upcoming Encounters Date Type Department Care Team (Late st Contact Info) Description 04/02/2024 10:30 EDT [facility] [address] [place] [address] [phone] 04/02/2024 15:15 EDT [facility] Surgical Oncology - [address] [phone] Adolfo Carreno MD [address] [place] [address] [phone] 04/05/2024 9:30 EDT Telemedicine [facility] Palliative Care Services [address] [place] [address] [phone] Chichi Woods MD [address] [place] [address] [phone] 04/11/2024 15:00 EDT Telemedicine [facility] Hematology & Oncology [address] 424111 Alisson Carreon MD [address] [place] [address] 2 [place] [phone] 04/13/2024 13:30 EDT Appointment [facility] Hematology & Oncology [address] [phone] 04/13/2024 14:00 EDT Appointment [facility] Hematology & Oncology [address] [phone] 04/16/2024 10:00 EST Telemedicine [facility] Palliative Care Services [address] [place] [address] 245201 Chichi Woods MD [address] [place] [address], [address] [phone] 04/24/2024 9:00 EST Appointment [facility] Radiology CT Outpatient - [address] [id number] 04/24/2024 11:00 EST Appointment [facility] Breast Imaging - [address] 038271 04/27/2024 12:00 EST Appointment [facility] Hematology & Oncology [address] [phone] 05/02/2024 15:00 EST Telemedicine [facility] Hematology & Oncology [address] 409381 Alisson Carreon MD [address] [place] [address], Level [address] [place] [phone] 05/04/2024 10:15 EST Ancillary Procedure [facility] Cardiology [place] [address] 05/04/2024 11:30 EST Appointment [facility] Hematology & Oncology [address] [phone] 05/04/2024 12:00 EST Appointment [facility] Hematology & Oncology [address] [phone] 06/12/2024 13:00 EST Appointment [facility] Radiology CT - [address] [phone] documented as of this encounter Visit Diagnoses Diagnosis Primary malignant neoplasm of breast with metastasis (HCC-CMS)- Primary documented in this encounter Discontinued Medications Medication Sig Discontinue Reason Start Date End Da te dexAMETHasone (DECADRON) 4 mg tabletIndications:Primar y malignant neoplasm of breast with metastasis (HCC-CMS) Take 2 Tablets by mouth daily. Take on days 2 and 3 after chemotherapy. Reorder 12/23/2023 12/26/2023 documented as of this encounter Care Teams Slurry Tank Tender Relationship Specialty Start Date End Date Linda Blancas MD [facility] [address] [place] [address] PCP - General 01/06/11 Adolfo Carreno MD [address] [place] [address] 2 [place] [phone] General Surgery 04/26/19 Augustina Colin MD PhD [address] [place] [address], [facility] 2 [place] [phone] Medical Oncology 04/26/19 documented as of this encounter
--- OUTSIDE RECORDS SUMMARY | 2024-03-20 14:37 | XMS_ITS | Encounter Summary ---
Author Organization [facility] Address [address] [place] [address] Care Team Providers Care Corporate Legal Intern Name Role Phone Linda Blancas MD Primary Care Provider Adolfo Carreno MD Unavailable [phone] Augustina Colin MD PhD Unavailable Unavailable Reason for Visit * Reason Onset Date Comments Results 12/27/2023 Encounter Details Date Type Department Care Team (Late st Contact Info) Description 12/27/2023 Telephone [facility] Gastroenterology - Main [place] [address] [place] [address] Greer Ruby RN [address] [place] [address] Results Social History Tobacco Use Types Packs/Day Years Used Date Smoking Tobacco: Never Passive Smoke Exposure: Never Smokeless Tobacco: Never Alcohol Use Standard Drinks/Week Comments Not Currently 1 (1 standard drink = 0.6 oz pur e alcohol) [facility] Utilities Answer Date Recorded In the past 12 months has th e [employer], gas, oil, or water [employer] threatened to shut off services in your [...] in a senior living (including now)? No 12/13/2023 Interpersonal Safety Answer Date Record ed How often does anyone, inclstefanie yung family, hit, punch or physically hurt you? 12/12/2023 How often does anyone, jsoelynstefanie aga family, insult, scream, curse or threaten [...] Telephone Encounter - Greer Ruby RN - 12/27/2023 1234 EDT Date Weight (lb) Spironolactone Furosemide Na K Cr GFR 11/29/23 138 3.4 0.54 104 12/09/23 119.6 25 mg 10 mg 133 3.7 0.61 101 12/20/23 122 50 mg 20 mg 135 3.8 0.52 105 12/27/23 123.6 50 mg 20 mg 134 4.2 0.86 76 Since her last paracentesis on 12/19, weight has been 122-125. Is retaining fluid in her abdomen: usually in the first days post-paracentesis she will retain 5% abdominal fluid and then the last 4 days, her abdomen pops out like she's . Today she is 1 week post-paracentesis and estimates she is 40% abdominal fluid retention and retaining fluid in her ankles documented in this encounter Plan of Treatment Upcoming Encounters Date Type Department Care Team (Late st Contact Info) Description 04/02/2024 10:30 EDT Appointment [facility] Interventional Radiology Unit [address] [place] [address] [phone] 04/02/2024 15:15 EDT Office Visit [facility] Surgical Oncology - [address] [phone] Adolfo Carreno MD 111 [facility], Level 2 [place] [phone] 04/05/2024 9:30 EDT Telemedicine [facility] - [facility] Palliative Care Services [address] [place], [place] [phone] Chichi Woods MD [address] [place] [address] [phone] 04/11/2024 15:00 EDT Telemedicine [facility] Hematology & Oncology - [place] [address] [place], [place] 216671 Alisson Carreon MD 111 [facility], [facility] 2 [place] [phone] 04/13/2024 13:30 EDT Appointment [facility] Hematology & Oncology - [address] [phone] 04/13/2024 14:00 EDT Appointment [facility] Hematology & Oncology - [address] [phone] 04/16/2024 10:00 EST Telemedicine [facility] - [facility] Palliative Care Services [address] [place] [address] [phone] Chichi Woods MD [address] [place] [address], [address] [phone] 04/24/2024 9:00 EST Appointment [facility] Radiology CT Outpatient - [address] [id number] 04/24/2024 11:00 EST Appointment [facility] Breast Imaging - [facility] S [address] [phone] 04/27/2024 12:00 EST Appointment [facility] Hematology & Oncology - [address] [phone] 05/02/2024 15:00 EST Telemedicine [facility] Hematology & Oncology - [address] [phone] Alisson Carreon MD [address] [place] [address], Level 2 [place] [phone] 05/04/2024 10:15 EST Ancillary Procedure [facility] Cardiology - [address] [place], [place] [phone] 05/04/2024 11:30 EST Appointment [facility] Hematology & Oncology - [address] [address] 05/04/2024 12:00 EST Appointment [facility] Hematology & Oncology - [address] [address] 06/12/2024 13:00 EST Appointment [facility] Radiology CT - [address] [phone] documented as of this encounter Visit Diagnoses Diagnosis Other ascites- Primary documented in this encounter Care Teams Corporate Legal Intern Relationship Specialty Start Date End Date Linda Blancas MD [facility] [address] [place] [address] PCP - General 01/06/11 Adolfo Carreno MD [address] [place] [address], [facility] 2 [place] [phone] General Surgery 04/26/19 Augustina Colin MD PhD [address] [place] [address] 2 [place] [phone] Medical Oncology 04/26/19 documented as of this encounter
--- OUTSIDE RECORDS SUMMARY | 2024-03-20 14:37 | XMS_ITS | Encounter Summary ---
Author Organization [facility] Address [address] [place] [address] Care Team Providers Care Storage And Backup Administrator Name Role Phone Linda Blancas MD Primary Care Provider [phone] Adolfo Carreno MD Unavailable [phone] Augustina Colin MD PhD Unavailable Unavailable Reason for Referral * Radiology Services (Routine/Next Available) - Authorization Not Required Specialty Diagnoses / Procedures Referred By Contac t Referred To Contact Diagnoses Other ascites 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) Procedures IR PARACENTESIS-RADIOLOGY Jackie Juan MD [address] [place] [id number] [facility] Referral ID Status Reason Start Date Expiration Date Visits Requested Visits Authorized [id number] Authorization Not Required 12/14/2023 1 1 Reason for Visit * Radiology Services (Routine/Next Available) - Authorization Not Required Specialty Diagnoses / Procedures Referred By Contac t Referred To Contact Diagnoses Other ascites 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) Procedures IR PARACENTESIS-RADIOLOGY Jackie Juan MD [address] [place] [id number] [facility] Referral ID Status Reason Start Date Expiration Date Visits Requested Visits Authorized [id number] Authorization Not Required 12/14/2023 1 1 Encounter Details Date Type Department Care Team (Late st Contact Info) Description 12/20/2023 8:11 EDT - 12/20/2023 11:48 EDT Hospital Encounter [facility] Interventional Radiology Unit [address], [place] [phone] Uche Wilson PA-C 111 [facility] 1 [place] [phone] Johnson Kwon MD 111 [facility] 1 [place] [address] Other ascites; Metastasis from breast cancer ([facility]) [C79.9, C50.919] Discharge Disposition: Home or Self Care Social History Tobacco Use Types Packs/Day Years Used Date Smoking Tobacco: Never Passive Smoke Exposure: Never Smokeless Tobacco: Never Alcohol Use Standard Drinks/Week Comments Not Currently 1 (1 standard drink = 0.6 oz pur e alcohol) [facility] Utilities Answer Date Recorded In the past 12 months has th e [employer], gas, oil, or water [employer] threatened to shut off services in your [...] any time in the past 12 m [facility], were you homeless or living in a skilled nursing (including now)? No 12/13/2023 Interpersonal Safety Answer [...] Sign Reading Time Taken Comments Blood Pressure 135/94 12/20/2023 0909 EDT Pulse - - Temperature - - Respiratory Rate 20 12/20/2023 0900 EDT Oxygen Saturation 100% 12/20/2023 0909 EDT Inhaled Oxygen Concentration - - Weight [...] this encounter Discharge Instructions * Discharge Instructions* Aisha Goodson RN - 12/20/2023 8:50 EDT Interventional Radiology Discharge Instructions Date: 12/20/2023 Procedure: Paracentesis (removal of fluid from your abdomen) Provider: Johnson Kwon MD and Neil Wilson PA-C 1.8 liters of fluid removed Aftercare: Activity: Rest today. Do not lift [...] after your procedure. When to contact the [facility] (call [phone] if symptoms are severe): 1. If you [...] PLEASE CALL THE INTERVENTIONAL RADIOLOGY CLINIC AT [phone], OPTION 2 TO REACH THE NURSE TRIAGE LINE. THERE WILL BE ASSISTANCE AVAILABLE 24 HOURS A DAY. IF YOU CALL AFTER HOURS YOU WILL BE CONNECTED WITHAN ON-CALL PHYSICIAN BY PRESSING 1. documented in this encounter Medications at Time [...] 2 times daily as needed. 12/20/2023 01/19/2024 furosemide (LASIX) 20 mg tablet Take 1 [...] days for Constipation. 30 Each 12/14/2023 01/13/2024 prochlorperazine (COMPAZINE) 10 mg tabletIndications:Prim hugo malignant [...] documented in this encounter Progress Notes * Aisha Goodson, RN - 12/20/2023829 EDT Labs, Medication, allergies, Pt history reviewed. Pt greeted in IRWR ID'd by name, and viewed name Bracelet. Pt in room time - 826 As the nurse in the room I reviewed the procedure with Sendy Pt acknowledges her questions have been answered and verbalizes understanding of procedure, . Consent for the procedure obtained Pt positioned supine on a stretcher in angio 27 VS assessed. Pre-procedure ultrasound of abdomen by TK Caba moment at start of procedure paracentesis At 0832 between TK, AND PERKINS . Sterile prep of right anterior lateral abdomen with chloraprep by ADN in the usual sterile fashion and in compliance with strap buckler recommendation. . Ultrasound guided placement of paracentesis catheter, 1.8 L of clear yellow fluid removed using Bridg paracentesis management system, paracentesis catheter removed and dressing placed on site Fluid sample obtained and delivered to radiology transport area by perkins Defer to Physicians note for procedure outcomes Pt tolerated procedure well. Discharge instructions reviewed with Sendy, copy given to Sendy and entered in [employer]. Sendy discharged ambulatory from angio 27 documented in this encounter Procedure Notes * Uche Wilson PA-C - 12/20/2023829 EDT IR Procedure Note Procedure: U/S guided paracentesis Date Performed: 12/20/2023 Radiologist/[employer] Repairer(s): MD Doyle/GRISEL Wilson Sedation/Anesthesia: Local Time Out: A time-out was completed prior to procedure verifying correct patient, procedure, site, positioning, and special equipment if applicable. Estimated Blood Loss: Unless otherwise noted, there was no blood loss, specimens removed, cultures obtained, or drains retained. Specimens: N/A Fluoroscopy Time: See dictated procedure note Contrast Volume: none Complications: none Condition: stable Post Procedure Diagnosis: Ascites Findings: 1.8 L yellow fluid Recommendations: F/U IR PRN Uche Wilson PA-C 12/20/2023 9:53 documented in this encounter Plan of Treatment Upcoming Encounters Date Type Department Care Team (Late st Contact Info) Description 04/02/2024 10:30 EDT Appointment [facility] Interventional Radiology Unit [address] [place] [phone] 04/02/2024 15:15 EDT Office Visit [facility] Surgical Oncology - [address] [phone] Adolfo Carreno MD [address] [place] [phone] 04/05/2024 9:30 EDT Telemedicine [facility] - [facility] Palliative Care Services [address] [place] [address] [phone] Chichi Woods MD [address] [place] [phone] 04/11/2024 15:00 EDT Telemedicine [facility] Hematology & Oncology [address] [phone] Alisson Carreon MD [address] [place] [phone] 04/13/2024 13:30 EDT Appointment [facility] Hematology & Oncology - [address] [phone] 04/13/2024 14:00 EDT Appointment [facility] Hematology & Oncology [address] [phone] 04/16/2024 10:00 EST Telemedicine [facility] - [facility] Palliative Care Services [address] [place] [address] [phone] Chichi Woods MD [address] [place] [phone] 04/24/2024 9:00 EST Appointment [facility] Radiology CT Outpatient - [address] [id number] 04/24/2024 11:00 EST Appointment [facility] Breast Imaging - [facility] [address] [phone] 04/27/2024 12:00 EST Appointment [facility] Hematology & Oncology [address] [id number] 05/02/2024 15:00 EST Telemedicine [facility] Hematology & Oncology [address] [phone] Alisson Carreon MD [address] [place] [address], [facility], Level 2 [place] [phone] 05/04/2024 10:15 EST Ancillary Procedure [facility] Cardiology [place] [place] [address] 05/04/2024 11:30 EST Appointment [facility] Hematology & Oncology [address] 434131 05/04/2024 12:00 EST Appointment [facility] Hematology & Oncology [address] [id number] 06/12/2024 13:00 [facility] Radiology CT - Main [address] [address] documented as of this encounter Procedures Procedure Name Priority Date/Time Associated Diagnosis Comments IR PARACENTESIS-RADIOLOG Y Routine 12/20/2023 9:20 EDT Other ascites 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) [C79.9, C50.919] ANAEROBE CULTURE/SMEAR(INC. AEROBES), OTHER Routine 12/20/2023 8:56 EDT NON POULTRY INSEMINATOR/FNA CYTOLOGY Routine 12/20/2023 8:55 EDT Other ascites FLUID CELL COUNT Routine 12/20/2023 8:55 EDT FLUID DIFFERENTIAL Today 12/20/2023 8: 55 EDT documented in this encounter Results * IR PARACENTESIS-RADIOLOGY (12/20/2023 9:20 EDT) Anatomical Region Laterality Modality N/A X-Ray Angiograph y 12/20/2023 10:3 3 EDT Impressions 12/20/2023 10:33 EDT Successful, uncomplicated paracentesis using sonographic guidance yielding 1.8 L ??fluid. ?? LUNA Arguelles, PA-C Interventional Radiology I have personally reviewed the images and the above interpretation and agree with the findings. [id number] Narrative 12/20/2023 10:33 EDT IR PARACENTESIS-RADIOLOGY ??12/20/2023 [...] procedure well without complication. Resulting Agency Comment [id number] Procedure Note Johnson Kwon MD - 12/20/2023 [...] the above interpretation andagree with the findings. [id number] Jackie Juan MD IM IR ORDERABLES * ANAEROBE CULTURE/SMEAR(INC. AEROBES), OTHER (12/20/2023 8:56 EDT) Organism ID No Growth 12/25/2023 11:01 EDT [facility] Smear No Neutrophils Seen 12/25/2023 11:01 EDT [facility] Smear No bacteria seen 12/25/2023 11:01 EDT [facility] Fluid ASCITIC FLUID / Unknown 12/20/2023 8:56 EDT 12/20/2023 9:40 EDT Halle Benito PA-C MICROBIOLOGY - GENER AL ORDERABLES [facility] [address] [place] [address] * FLUID DIFFERENTIAL (12/20/2023 8:55 EDT) Neutrophils Fluid Relative 24 % 12/20/2023 10:56 EDT [facility] Lymphocytes Fluid Relative 21 % 12/20/2023 10:56 EDT [facility] [place]/Macrophage 51 % 10:56 EDT [facility] Mesothelial Cells Fluid Relative 4 % 12/20/2023 10:56 EDT [facility] Fluid ASCITIC FLUID / Unknown 12/20/2023 8:55 EDT 12/20/2023 9:40 EDT Halle Benito PA-C GEN LAB UNIT COLLECT ORDERABLES Performing Organization Address City/[facility]/ZIP Co de Phone Number [facility] [address] [place] [address] * FLUID CELL COUNT (12/20/2023 8:55 EDT) RBC, Fluid <10,000 /cmm 12/20/2023 10:18 EDT [facility] Nucleated Cells, fluid 167 /cmm 12/20/2023 10:18 EDT [facility] Comment, fluid Clear Yellow 12/20/2023 10:18 EDT [facility] Fluid ASCITIC FLUID / Unknown 12/20/2023 8:55 EDT 12/20/2023 9:40 EDT Halle Benito PA-C HEMATOLOGY & PF4 ORD ERABLES Performing Organization Address City/[facility]/ZIP Co de Phone Number [facility] [address] [place] [address] * NON POULTRY INSEMINATOR/FNA CYTOLOGY (12/20/2023 8:55 EDT) Note to Patient The following pathology results have been interpreted by your pathologist and may be available to you before your health provider has had the opportunity to review them. Please allow time for your provider to receive these results and explore management options, if applicable. 12/21/2023 12:04 EDT [facility] Final Diagnosis A. ASCITIC FLUID, CYTOLOGIC EVALUATION: - Negative for malignant cells. - Reactive mesothelial cells present. See comment. 12/21/2023 12:04 T [facility] Diagnosis Comment A cell block obtained on this case is negative for malignancy. 12/21/2023 12:04 [facility] Attestation By the signature below, the attending physician certifies that they have personally conducted a gross and/or microscopic examination of the described specimens and rendered or confirmed the above diagnosis. 12/21/2023 12:04 [facility] at 1204 Clinical History Ascites 12/21/2023 12:04 [facility] Gross Description A. 1500 cc's of cloudy yellow fluid were received and processed by selective cellular enhancement technique. 12/21/2023 12:04 T [facility] Performing Lab [facility] 12/21/2023 12:04 [facility] Scanned Images 12/21/2023 12:04 [facility] Fine Needle Aspirate ASCITIC FLUID / Unknown 12/20/2023 8:55 EDT 12/20/2023 10:23 EDT Halle Benito PA-C PATHOLOGY ORDERABLES [facility] [address], [place] [phone] documented in this encounter Visit Diagnoses Diagnosis Other ascites 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) [C79.9, C50.919] documented in this encounter Care Teams Storage And Backup Administrator Relationship Specialty Start Date End Date Linda Blancas MD [facility] [address] [place], [place] [phone] PCP - General 01/06/11 Adolfo Carreno MD 111 [facility], [facility], Level 2 [place] [phone] General Surgery 04/26/19 Augustina Colin MD PhD [address] [place] [address] 2 [place] [phone] Medical Oncology 04/26/19 documented as of this encounter
--- OUTSIDE RECORDS SUMMARY | 2024-03-20 14:37 | XMS_ITS | Encounter Summary ---
Author Organization [facility] Address [address] [place] [address] Care Team Providers Care Ice Puller Name Role Phone Linda Blancas MD Primary Care Provider Adolfo Carreno MD Unavailable [phone] Augustina Colin MD PhD Unavailable Unavailable Reason for Visit * Reason Onset Date Comments New/Evolving Symptoms 12/22/2023 Encounter Details Date Type Department Care Team (Late st Contact Info) Description 12/22/2023 Telephone [facility] Hematology & Oncology - [address] [phone] Alisson Chanel MD 111 [facility], Level [address] [place] [phone] New/Evolving Symptoms Social History Tobacco Use Types Packs/Day Years Used Date Smoking Tobacco: Never Passive Smoke Exposure: Never Smokeless Tobacco: Never Alcohol Use Standard Drinks/Week Comments Not Currently 1 (1 standard drink = 0.6 oz pur e alcohol) [facility] Utilities Answer Date Recorded In the [...] any time in the past 12 m [facility], were you homeless or living in [...] Telephone Encounter - Pérez Stevens RN - 12/22/2023 1615 EDT Returned call to pt. She has c/o of worsening fluid retention in LE's since paracentesis on Tuesday; Daily weights, only 0.2lb gain since para and cont on lasix 20mg po and spironolactone 50mg. Voiding regularly.recommended elevating LE's t/o the day. States she is call liver doc tomorrow. She c/o increased cramping at legs and arms. States the area of cramping has expanded to in area and is extremely painful, 10/10 during episodes, and is worse when she is at rest. Describes that she gets shaky, crampy, and has spasms. She went to urgent care night before last because it was intenseand they gave her flexeril which has been helpful, but she is almost out. This nurse recommended she contact her PCP about possibly extending that treatment and/or labs or other. She agree she would call them. Her primary concern for this office is regarding the 2 days of dexamethasone she normally receives post-chemo. It was not given to her this time as they are trying a different approach. Also she is on daily prednisone 10mg at this time as well. She is requesting to have those 2 doses after chemo back as she states those are usually my best 2 days of the month. I will forward to dr Chanel for review. * Telephone Encounter - AbelRandal parksa - 12/22/2023 1546 EDT [facility] Active Symptoms/Disease Management Reported active symptoms: Fluid retention and cramping When did you start experiencing these symptoms? Since May Are they constant or intermittent? Constant Have you ever experienced these symptoms before? Yes Any additional patient reported details: Patient is experiencing fluid issues after chemo. Patient states 1800 liters of fluid was taken off from her stomach on Tuesday. Patient recently had medication changes. Patient states she has a lot going on at the moment. Please call back to discuss Sloane Hayes 12/22/2023 15:49 documented in this encounter Plan of Treatment Upcoming Encounters Date Type Department Care Team (Late st Contact Info) Description 04/02/2024 10:30 EDT Appointment [facility] Interventional Radiology Unit [address] [place] [address] [phone] 04/02/2024 15:15 EDT Office Visit [facility] Surgical Oncology - [address] [phone] Adolfo Carreno MD [address] [place] [address] 2 [place] [phone] 04/05/2024 9:30 EDT Telemedicine [facility] Palliative Care Services [address] [place] [address] [phone] Chichi Woods MD [address] [place] [phone] 04/11/2024 15:00 EDT Telemedicine [facility] Hematology & Oncology [address] [phone] Alisson Chanel MD [address] [place] [address] 2 [place] [phone] 04/13/2024 13:30 EDT Appointment [facility] Hematology & Oncology [address] [phone] 04/13/2024 14:00 EDT Appointment [facility] Hematology & Oncology [address] [phone] 04/16/2024 10:00 EST Telemedicine [facility] Palliative Care Services [address] [place] [address] [phone] Chichi Woods MD [address] [place] [address], [place] [address] [place] [phone] 04/24/2024 9:00 EST Appointment [facility] Radiology CT Outpatient - [address] [id number] 04/24/2024 11:00 EST Appointment [facility] Breast Imaging - [address] [id number] 04/27/2024 12:00 EST Appointment [facility] Hematology & Oncology [address] [phone] 05/02/2024 15:00 EST Telemedicine [facility] Hematology & Oncology [address] [phone] Alisson Chanel MD [address] [place] [address], [facility], Level [address] [place] [phone] 05/04/2024 10:15 EST Ancillary Procedure [facility] Cardiology - [address] [place] [address] 05/04/2024 11:30 EST Appointment [facility] Hematology & Oncology [address] [phone] 05/04/2024 12:00 EST Appointment [facility] Hematology & Oncology [address] [phone] 06/12/2024 13:00 EST Appointment [facility] Radiology CT - [address] [phone] documented as of this encounter Visit Diagnoses Not on filedocumented in this encounter Additional Health Concerns Infection Onset Date Last Indicated Resolved Time R/O COVID-19 01/08/2024 01/08/2024 01/08/2024 18:2 6 EDT documented as of this encounter Care Teams Ice Puller Relationship Specialty Start Date End Date Linda Blancas MD [facility] [address] [place] [address] PCP - General 01/06/11 Adolfo Carreno MD [address] [place] [address] 2 [place] [phone] General Surgery 04/26/19 Augustina Colin MD PhD [address] [place] [phone] Medical Oncology 04/26/19 documented as of this encounter
--- OUTSIDE RECORDS SUMMARY | 2024-03-20 14:37 | XMS_ITS | Encounter Summary ---
Author Organization [facility] Address [address] [place] [address] Care Team Providers Care District Adviser Name Role Phone Linda Blancas MD Primary Care Provider [phone] Adolfo Carreno MD Unavailable [phone] Augustina Colin MD PhD Unavailable Unavailable Encounter Details Date Type Department Care Team (Latest Contact Info) Description 12/20/2023 11:49 EDT - 12/20/2023 23:59 EDT Hospital Encounter [facility] Cancer [facility] Hematology & Oncology - [place] [address], [place] [phone] Malignant neoplasm of right female breast, unspecified [...] Recorded In the past 12 months has [employer] electric, gas, oil, or water company threatened [...] living in a snf (including now)? No 12/13/2023 Interpersonal Safety Answer [...] Progress Notes * Stacy Roper RN - 12/20/2023 1200 EDT Sunshine Pleitez presents to EP2 infusion for port access and flush. IVAD in right anterior chest accessed using sterile technique and size 20 3/4 Kessler needle. Brisk blood return noted; flushed without difficulty. Labs sent as per order. Port remained accessed for infusion scheduled for today I was supervised by Dr. Tong who was present and immediately available in the office suite. STACY ROPER RN 12/20/2023 documented in this encounter Plan of Treatment Upcoming Encounters Date Type Department Care Team (Late st Contact Info) Description 04/02/2024 10:30 EDT Appointment [facility] Interventional Radiology Unit [address] [place] [address] [phone] 04/02/2024 15:15 EDT Office Visit [facility] Surgical Oncology - [facility] [address], [place] [phone] Adolfo Carreno MD [address] [facility], Level 2 [place] [phone] 04/05/2024 9:30 EDT Telemedicine [facility] Palliative Care Services [address] [place] [address] [phone] Chichi Woods MD [address] [place] [phone] 04/11/2024 15:00 EDT Telemedicine [facility] Hematology & Oncology [address] [phone] Alisson Carreon MD [address] [place] [address], Level 2 [place] [phone] 04/13/2024 13:30 EDT Appointment [facility] Hematology & Oncology [address] [phone] 04/13/2024 14:00 EDT Appointment [facility] Hematology & Oncology [address] [address] 04/16/2024 10:00 EST Telemedicine [facility] - [facility] Palliative Care Services [address] [place] [address] [phone] Chichi Woods MD [address] [place] [phone] 04/24/2024 9:00 EST Appointment [facility] Radiology CT Outpatient - [address] [address] 04/24/2024 11:00 EST Appointment [facility] Breast Imaging - [address] 196761 04/27/2024 12:00 EST Appointment [facility] Hematology & Oncology - [address] [phone] 05/02/2024 15:00 EST Telemedicine [facility] Hematology & Oncology - [address] 217101 Alisson Carreon MD 111 [facility], [facility], Level 2 [place] [phone] 05/04/2024 10:15 EST Ancillary Procedure [facility] Cardiology - [address] [place] [address] 05/04/2024 11:30 EST Appointment [facility] Hematology & Oncology - [address] [phone] 05/04/2024 12:00 EST Appointment [facility] Hematology & Oncology [address] 108751 06/12/2024 13:00 EST Appointment [facility] Radiology CT - [address] [phone] Scheduled Orders Name Type Priority Associated Diagnoses Orde r Schedule PHOSPHORUS Lab STAT Malignant neoplasm of right female breast, unspecified estrogen receptor status, unspecified site of breast ([facility]) 5 Occurrences starting 12/19/2023 until 12/18/2024, 3 completed VITAMIN D (25,[place]) Lab Routine Malignant neoplasm of right female breast, unspecified estrogen receptor status, unspecified site of breast ([facility]) Ordered: 12/19/2023 documented as of this encounter Procedures Procedure Name Priority Date/Time Associated Diagnosis Comments COMPREHENSIVE METABOLIC PANEL (ONCOLOGY USE ONLY-INC MG) STAT 12/20/2023 11:51 EDT Primary malignant neoplasm of breast with metastasis ([facility]) CA 27.29 STAT 12/20/2023 11:51 EDT Malignant neoplasm of right female breast, unspecified estrogen receptor status, unspecified site of breast ([facility]) COMPLETE BLOOD COUNT AND DIFFERENTIAL STAT 12/20/2023 11:51 EDT Primary malignant neoplasm of breast with metastasis ([facility]) PHOSPHORUS STAT 12/20/2023 11:51 EDT Malignant neoplasm of right female breast, unspecified estrogen receptor status, unspecified site of breast ([facility]) documented in this encounter Results * PHOSPHORUS (02/07/2024 15:20 EDT) Phosphorus 3.5 2.5 - 4.5 mg/dL 02/07/2024 15:55 EDT [facility] Blood BLOOD SAMPLE TAKEN FROM CENTRAL LINE / Unknown Port / Unknown 02/07/2024 15:20 EDT 02/07/2024 15:28 EDT Alisson Carreon MD CHEMISTRY & BLOOD G ORDERABLES Performing Organization Address City/[facility]/ZIP Co de Phone Number [facility] [address] [place] [address] * PHOSPHORUS (01/31/2024 10:28 EDT) Pathologist [facility] Phosphorus 3.2 2.5 - 4.5 mg/dL 01/31/2024 11:43 EDT [facility] Blood VENOUS BLOOD / Unknown Venipuncture / Unknown 01/31/2024 10:28 EDT 01/31/2024 10:39 EDT Alisson Carreon MD CHEMISTRY & BLOOD G ORDERABLES Performing Organization Address City/[facility]/ZIP Co de Phone Number [facility] [address] [place] [phone] * (ABNORMAL) COMPREHENSIVE METABOLIC PANEL (ONCOLOGY USE ONLY-INC MG) (12/20/2023 11:51 EDT) Sodium 135(L) 136 - 145 mmol/L 12/20/2023 12:30 EDT [facility] Potassium 3.8 3.5 - 5.0 mmol/L 12/20/2023 12:30 EDT [facility] Chloride 106 96 - 110 mmol/L 12/20/2023 12:30 EDT [facility] CO2 Total 23 22 - 32 mmol/L 12/20/2023 12:30 [facility] Glucose 115(H) 70 - 99 mg/dl 12/20/2023 12:30 [facility] BUN 19 10 - 26 mg/dL 12/20/2023 12:30 [facility] Creatinine 0.52 0.52 - 1.04 mg/dL 12/20/2023 12:30 [facility] eGFR 105 >60 mL/min/1.7 3m2 12/20/2023 12:30 [facility] Total Protein 4.9(L) 6.3 - 8.2 g/dL 12/20/2023 12:30 [facility] Albumin 2.5(L) 3.4 - 4.9 g/dL 12/20/2023 12:30 [facility] Alkaline Phosphatase 321(H) 38 - 126 U/L 12/20/2023 12:30 [facility] AST 53(H) 15 - 46 U/L 12/20/2023 12:30 [facility] ALT 41(H) <35 U/L 12/20/2023 12:30 [facility] Bilirubin, Total 1.5(H) <1.4 mg/dL 12/20/19 12:30 [facility] Calcium 8.1(L) 8.5 - 10.5 mg/dL 12/20/2023 12:30 [facility] Magnesium 1.9 1.7 - 2.8 mg/dL 12/20/2023 12:30 [facility] Albumin/Globulin Ratio 1.0 1.0 - 2.5 12/20/2023 12:30 [facility] Anion Gap 6 5 - 14 mmol/L 12/20/2023 12:30 [facility] Blood VENOUS BLOOD / Unknown Venipuncture / Unknown 12/20/2023 11:51 EDT 12/20/2023 12:09 EDT Augustina Colin MD PhD CHEMISTRY & BLOOD GA S ORDERABLES [facility] [address] [place], [place] [phone] * (ABNORMAL) COMPLETE BLOOD COUNT AND DIFFERENTIAL (12/20/2023 11:51 EDT) WBC 7.66 4.00 - 12.40 K/cmm 12/20/2023 12:18 [facility] RBC 2.46(L) 3.86 - 5.04 M/cmm 12/20/2023 12:18 [facility] Hemoglobin 8.4(L) 11.6 - 15.2 g/dL 12/20/2023 12:18 [facility] HCT 25.5(L) 34.9 - 44.4 % 12/20/2023 12:18 [facility] MCV 104(H) 81 - 98 fL 12/20/2023 12:18 [facility] MCH 34.1(H) 26.7 - 33.3 pg 12/20/2023 12:18 [facility] MCHC 32.9 32.1 - 35.9 g/dL 12/20/2023 12:18 [facility] RDW-CV 23.8(H) <14.7 % 12/20/2023 12:18 [facility] RDW-SD 88.5(H) <50.4 fl 12/20/2023 12:18 [facility] PLT 209 141 - 377 K/cmm 12/20/2023 12:18 [facility] MPV 10.1 9.5 - 12.7 fL 12/20/2023 12:18 [facility] % Neutrophils 82.4 % 12/20/2023 12:18 [facility] % Lymphocytes 7.2 % 12/20/2023 12:18 [facility] % Monocytes 8.9 % 12/20/2023 12:18 [facility] % Eosinophils 0.4 % 12/20/2023 12:18 [facility] % Basophils 0.3 % 12/20/2023 12:18 [facility] % Immature Grans 0.8 % 12/20/19 24 12:18 [facility] Absolute Neutrophils 6.32 2.20 - 8.85 K/cmm 12/20/2023 12:18 [facility] Absolute Lymphocytes 0.55(L) 1.09 - 3.30 K/cmm 12/20/2023 12:18 [facility] Absolute Monocytes 0.68 0.10 - 0.80 K/cmm 12/20/2023 12:18 [facility] Absolute Eosinophils 0.03 0.03 - 0.61 K/cmm 12/20/2023 12:18 [facility] ABS Basophils 0.02 0.01 - 0.11 K/cmm 12/20/2023 12:18 [facility] Absolute Immature Grans 0.06 0.00 - 0.06 K/cmm 12/20/2023 12:18 [facility] Type of Differential: Auto 12/20/2023 12:18 [facility] Blood VENOUS BLOOD / Unknown Venipuncture / Unknown 12/20/2023 11:51 EDT 12/20/2023 12:09 EDT Augustina Colin MD PhD PACKAGES & DNA PROBE ORDERABLES [facility] [address] [place] [address] [phone] * (ABNORMAL) CA 27.29 (12/20/2023 11:51 EDT) CA 27.29 422.2(H) <38.0 U/mL 12/21/2023 8:34 [facility] Comment: NOTE: Serum CA 27.29 concentration should not be interpreted as absolute evidence for the presence or absence of malignant disease. Assayed on Siemens ADVIA Baccarataur XPT using chemiluminescent technology. ??Values obtained by using different assay methods cannot be used interchangeably. Blood VENOUS BLOOD / Unknown Venipuncture / Unknown 12/20/2023 11:51 EDT 12/20/2023 12:09 EDT Augustina Colin MD PhD CHEMISTRY & BLOOD GA S ORDERABLES Performing Organization Address City/[facility]/ZIP Co de Phone Number [facility] [address] [place], [place] [phone] * PHOSPHORUS (12/20/2023 11:51 EDT) Phosphorus 3.5 2.5 - 4.5 mg/dL 12/20/2023 12:30 EDT [facility] Blood VENOUS BLOOD / Unknown Venipuncture / Unknown 12/20/2023 11:51 EDT 12/20/2023 12:09 EDT Alisson Carreon MD CHEMISTRY & BLOOD G ORDERABLES Performing Organization Address City/[facility]/ZIP Co de Phone Number [facility] [address] [place] [address] documented in this encounter Visit Diagnoses Diagnosis Malignant neoplasm of right female breast, unspecified estrogen receptor status, unspecified site of breast (HCC-CMS)- Primary Primary malignant neoplasm of breast with metastasis (HCC-CMS) Other ascites documented in this encounter Orders Lab Orders Without Results Count Last Ordered D ate First Ordered Date BASIC METABOLIC PANEL (BMP) 1 12/20/2023 documented in this encounter Care Teams District Adviser Relationship Specialty Start Date End Date Linda Blancas MD [facility] [address] [place] [address] PCP - General 01/06/11 Adolfo Carreno MD [facility], [facility] 2 [place] [phone] General Surgery 04/26/19 Augustina Colin MD PhD [facility], [address] [place] [address] Medical Oncology 04/26/19 documented as of this encounter
--- OUTSIDE RECORDS SUMMARY | 2024-03-20 14:37 | XMS_ITS | Encounter Summary ---
Author Organization [facility] Address [address] [place] [address] Care Team Providers Care Pool Table Mechanic Name Role Phone Linda Blancas MD Primary Care Provider [phone] Adolfo Carreno MD Unavailable [phone] Augustina Colin MD PhD Unavailable Unavailable Reason for Visit * Reason Onset Date Comments Returning Call 12/22/2023 Appointment Related 12/22/2023 Encounter Details Date Type Department Care Team (Late st Contact Info) Description 12/22/[address] [facility] Cancer Center Hematology & Oncology - [address] [phone] Alisson Carreon MD 111 [facility], Level 2 [place] [phone] Returning Call; Appointment Related Social History Tobacco Use Types [...] time in the past 12 m [facility], were you homeless or living in a [...] * Telephone Encounter - Sandhya Estrada - 12/22/2023 1615 EDT Patient returned call. Discussed port access for 03/13 CT scan & tx - port access before vs after scan. Patient wanted to schedule port access/labs prior to CT scan. Appt scheduled @ 0745. Patient confirmed. * Telephone Encounter - Tomeka Love - 12/22/2023 1544 EDT Patient returning call to scheduling in reference to signed 12/21 TE. documented in this encounter Plan of Treatment Upcoming Encounters Date Type Department Care Team (Late st Contact Info) Description 04/02/2024 10:30 EDT Appointment [facility] Interventional Radiology Unit [address] [place] [address] [phone] 04/02/2024 15:15 EDT Office Visit [facility] Surgical Oncology - [address] [phone] Adolfo Carreno MD [address] [place] [address], Level [address] [place] [phone] 04/05/2024 9:30 EDT Telemedicine [facility] - [facility] Palliative Care Services [address] [place] [address] 130691 Chichi Woods MD [address] [place] [phone] 04/11/2024 15:00 EDT Telemedicine [facility] Hematology & Oncology - [address] [phone] Alisson Carreon MD [address] [place] [address], Level [address] [place] [phone] 04/13/2024 13:30 EDT Appointment [facility] Hematology & Oncology [address] [phone] 04/13/2024 14:00 EDT Appointment [facility] Hematology & Oncology - [address] [phone] 04/16/2024 10:00 EST Telemedicine [facility] - [facility] Palliative Care Services [address] [place] [address] [phone] Chichi Woods MD [address] [place] [address], [address] [phone] 04/24/2024 9:00 EST Appointment [facility] Radiology CT Outpatient - [address] [id number] 04/24/2024 11:00 EST Appointment [facility] Breast Imaging - [facility] [address] [phone] 04/27/2024 12:00 EST Appointment [facility] Hematology & Oncology [address] [phone] 05/02/2024 15:00 EST Telemedicine [facility] Hematology & Oncology - [address] [phone] Alisson Carreon MD [address] [place] [address], Level [address] [place] [phone] 05/04/2024 10:15 EST Ancillary Procedure [facility] Cardiology - [address] [place], [place] [phone] 05/04/2024 11:30 EST Appointment [facility] Hematology & Oncology - [address] [address] 05/04/2024 12:[address] [facility] Cancer Center Hematology & Oncology - [address] [address] 06/12/2024 13:00 EST [facility] Radiology CT - [address] [address] documented as of this encounter Visit Diagnoses Not on filedocumented in this encounter Care Teams Pool Table Mechanic Relationship Specialty Start Date End Date Linda Blancas MD [facility] [address] [place] [address] PCP - General 01/06/11 Adolfo Carreno MD [address] [place] [address], [facility] 2 [place] [phone] General Surgery 04/26/19 Augustina Colin MD PhD [address] [place] [address], [facility] 2 [place] [phone] Medical Oncology 04/26/19 documented as of this encounter
--- OUTSIDE RECORDS SUMMARY | 2024-03-20 14:37 | XMS_ITS | Encounter Summary ---
Author Organization [facility] Address [address] [place] [address] Care Team Providers Care Glass Tinter Name Role Phone Linda Blancas MD Primary Care Provider [phone] Adolfo Carreno MD Unavailable [phone] Augustina Colin MD PhD Unavailable Unavailable Reason for Visit * Reason Onset Date Comments Other 12/19/2023 Encounter Details Date Type Department Care Team (Late st Contact Info) Description 12/19/2023 Telephone [facility] Gastroenterology - [facility] [address] [place] [address] Hugo Vergara MD PhD [address] [place] [address], [address] [place] [phone] Other Social History Tobacco Use Types Packs/Day Years Used Date Smoking Tobacco: Never Passive Smoke Exposure: Never Smokeless Tobacco: Never Alcohol Use Standard Drinks/Week Comments Not Currently 1 (1 standard drink = 0.6 oz pur e alcohol) [facility] Utilities Answer Date Recorded In the past 12 months has [employer] electric, gas, oil, or water company threatened [...] any time in the past 12 m [facility], were you homeless or living in [...] Telephone Encounter - Yovana Bowman RN - 12/20/2023 1002 EDT See mychart message * Telephone Encounter - Yovana Bowman RN - 12/19/2023 1451 EDT Left a detailed message for the patient that Dr. Vergara is out of the office today, but we will get back to her as soon as possible. * Telephone Encounter - Megan Galdamez - 12/19/2023 1009 EDT Patient calling requesting paracentesis tomorrow. Patient states she has gained 6lbs in the last three days and her stomach is bulging. Patient has infusion tomorrow afternoon and doesn't want to have to go to the ED after that. Please callback [phone] and send [employer] message. documented in this encounter Plan of Treatment Upcoming Encounters Date Type Department Care Team (Late st Contact Info) Description 04/02/2024 10:30 EDT Appointment [facility] Interventional Radiology Unit [address] [place] [address] [phone] 04/02/2024 15:15 EDT Office Visit [facility] Surgical Oncology - [facility] [address] [place], [place] [address] Adolfo Carreno MD 111 [facility], Level 2 [place] [phone] 04/05/2024 9:30 EDT Telemedicine [facility] - [facility] Palliative Care Services [address] [place] [address] [phone] Chichi Woods MD [address] [place] [address] 262 [place] [phone] 04/11/2024 15:00 EDT Telemedicine [facility] Hematology & Oncology - [address] [phone] Alisson Carreon MD [address] [place] [address] 2 [place] [phone] 04/13/2024 13:30 EDT Appointment [facility] Hematology & Oncology - [address] [phone] 04/13/2024 14:00 EDT Appointment [facility] Hematology & Oncology - [address] [phone] 04/16/2024 10:00 EST Telemedicine [facility] - [facility] Palliative Care Services [address] [place] [address] [phone] Chichi Woods MD [address] [place] [phone] 04/24/2024 9:00 EST Appointment [facility] Radiology CT Outpatient - [address] [id number] 04/24/2024 11:00 EST Appointment [facility] Breast Imaging - [address] [phone] 04/27/2024 12:00 EST Appointment [facility] Hematology & Oncology - [address] [phone] 05/02/2024 15:00 EST Telemedicine [facility] Hematology & Oncology - [address] [phone] Alisson Carreon MD [address] [place] [address] 2 [place] [phone] 05/04/2024 10:15 EST Ancillary Procedure [facility] Cardiology - [address] [place] [address] 05/04/2024 11:30 EST Appointment [facility] Hematology & Oncology [address] [phone] 05/04/2024 12:00 EST Appointment [facility] Hematology & Oncology [address] [phone] 06/12/2024 13:00 EST Appointment [facility] Radiology CT - [address] [phone] documented as of this encounter Visit Diagnoses Diagnosis Other ascites- Primary documented in this encounter Orders Lab Orders Without Results Count Last Ordered D ate First Ordered Date BASIC METABOLIC PANEL (BMP) 1 12/20/2023 documented in this encounter Additional Health Concerns Infection Onset Date Last Indicated Resolved Time R/O COVID-19 01/08/2024 01/08/2024 01/08/2024 18:2 6 EDT documented as of this encounter Care Teams Glass Tinter Relationship Specialty Start Date End Date Linda Blancas MD [address] [place] [address] 30 [place] [address] PCP - General 01/06/11 Adolfo Carreno MD [address] [place] [phone] General Surgery 04/26/19 Augustina Colin MD PhD [address] [place] [phone] Medical Oncology 04/26/19 documented as of this encounter
--- OUTSIDE RECORDS SUMMARY | 2024-03-20 14:37 | XMS_ITS | Encounter Summary ---
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 (HCC-[facility]) Jackie Juan MD [address] [place] [phone] Immanuel Carreon MD [address] [place] [phone] Referral ID Status Reason Start Date Expiration Date Visits Requested Visits Authorized [id number] Receiving Office to Obtain Authorization Specialty Services Required 12/14/2023 1 1 Encounter Details Date Type Department Care Team (Late st Contact Info) Description 12/20/2023 13:30 EDT Office Visit [facility] Cancer Center Hematology & Oncology - [address] [address] Immanuel Carreon MD [address] [place] [phone] Malignant neoplasm of female breast, unspecified estrogen receptor status, unspecified laterality, unspecified site of breast (HCC-CMS) (Primary Dx); 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 Utilities Answer Date Recorded In the past 12 months has th e electric, gas, oil, or water [email or web address] threatened to shut off services in your [...] time in the past 12 m [facility], were you homeless or living in a usp (including now)? No 12/13/2023 Interpersonal Safety Answer [...] Sign Reading Time Taken Comments Blood Pressure 139/63 12/20/2023 1330 EDT Pulse 95 12/20/2023 1330 EDT Temperature 36.7 ??C (98 ??F) 12/20/2023 1330 EDT Respiratory Rate 16 12/20/2023 1330 EDT Oxygen Saturation 100% 12/20/2023 1330 EDT Inhaled Oxygen Concentration - - Weight 55.6 kg (122 lb 9.6 oz) 12/20/2023 1330 E DT Height - - Body Mass Index 23.94 12/12/2023 1159 EDT documented in this encounter Functional Status [...] Dispensed Refills Start Date End Da te predniSONE (DELTASONE) 10 mg tabletIndications:Primary malignant neoplasm of breast with metastasis (HCC-CMS) Take 1 Tablet by mouth daily with breakfast. 30 Tablet 11 12/20/2023 01/19/2024 documented in this encounter Progress Notes * Immanuel Carreon MD - 12/20/2023 1330 EDT Follow Up Breast Oncology Office Visit 12/20/23 Assessment & Plan 63 y.o. 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 Starting furosemide 20 mg daily, spironolactone 50mg daily, track weight. She was also noted to have a UE thrombus and a PE->eliquis since 11/09/23 CA 27-29: 28 (05/17/2019)->377 (11/26/21)->69 (08/31/22 eugene from [place])->864 (10/11/23)->1184 (11/08/23) ->836 (11/29/23) Summary of therapy: 10/2016- 03/2018 letrozole + [...] and numerous new liver mets - 09/2023 elecestrant: Her scans were relatively stable disease however LFTs, persistent cough suggest progression. 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 Lung biopsy 06/22/23 - adenocarcinoma consistent with metastatic breast cancer; ER+ >90%, [place] < 5%; HER2 2+ equivocal; [facility] FISH testing negative 11/29/23 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%) Genetics: NMN VUS per notes Last scans: 11/09/23 CT AP: extensive liver mets, moderate ascites, 11/09/23 CTA: acute PE's, interval enlarged LN's (IM, left axillary, subpec) bone scan 11/25/23: new focus of left ninth rib Enhertu #3 prednisone 10mg ->no need for atovaqune pcp ppx per pulm will change zometa to denosumab on 12/20/23 because of potential new met/small rib fracture on bone scan 11/202312/20/23 Enheru #4 today + denosumab #1, C - coming down nicely CT chest every 9-12 weeks (r/o pneumonitis side effect) Transaminits (grade 1) from liver mets: monitor ECHO every 3 months, next due January [address] C/A/P end of December 2023 ->since she jsut had CT during admission then I recommend to push this out to 03/2024 LE edema- see PT, compression stockings Continue diuretics with hepatology, ascitic fluid from portal HTN, consider aspira catheter, she will d/w mowing machine operator Waller- 1 liter NS next week to prevent dehydration (she thinks recent confusion leading to admission was from vomiting and dehydration) Worsening muscular cramps- go back to gabapentin prior dose and try magnesium Breast Oncology History PROBLEM LIST: 1. 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 Ultrasound performed in [place] identifying an irregular heterogeneous soft tissue mass measuring 1.2 x 1.2 x 1.5 cm. b. 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 HER-2 1+ by IHC. ANNE MARIE revealed [...] breast tumor 07/07/17 and placement of tissue marketing developer. 1.9 cm tumor at time ofsurgery, well differentiated, with LVI present, and negative margins. G. Biopsy left cervical LN 02/11/20 - consistent with metastatic adenocarcinoma consistent with breast primary H. Fulvestrant initiated 03/06/20; abemaciclib initiated 03/31/20 discontinued 06/01 due to diarrhea; palbociclib initiated March 2021 I. Capecitabine initiated December 2021 J. Y90 infusion to liver by Dr Moya 04/08/22 and again 05/14/22 K. 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 Lung biopsy 06/22/23 - adenocarcinoma consistent with metastatic breast cancer; ER+ >90%, [place] < 5%; HER2 2+ equivocal; [facility] FISH testing negative M. Elacestrant initiated early August 2023 Potential future treatment options: trodelvy, various chemo's (eribulin, gem/cis, taxane/abraxane, Navelbine, adriamycin/doxil) 11/29/23: Presents today with for transition of care 3rd Enhertu today Second paracentesis today, feels much better Also on prednisone 10mg with better energy Subjective Recent admission for AMS thought to be med induced 12/13/23 brain MRI: DORETHA She had 1700cc removed today (portal hypertension) Started weaning off gabapentin and venlafaxine (from 150mg to 75mg) and muscle cramps significantlyworsened Objective Vitals: 12/20/23 1330 BP: 139/63 Pulse: 95 Resp: 16 Temp: 36.7 ??C (98 ??F) TempSrc: Skin SpO2: 100% Weight: 55.6 kg (122 lb 9.6 oz) Wt Readings from Last 3 Encounters: 12/20/23 55.6 kg (122 lb 9.6 oz) 12/12/23 53.5 kg (118 lb) 12/09/23 55 kg (121 lb 4.1 oz) Physical Exam: appears well, alert and oriented x 3, no cough, no respiratory distress, clear and fluent speech, no scleral icterus, no jaundice, no visible rashes, no abdominal tenderness, no edema. Labs and Imaging IR PARACENTESIS-RADIOLOGY Result Date: 12/20/2023 Successful, uncomplicated paracentesis using sonographic guidance yielding 1.8 L fluid. LUNA Arguelles PA-C Interventional Radiology I have personally reviewed the images and the above interpretation and agree with the findings. [id number] MR HEAD W WO CONTRAST Result Date: 12/13/2023 No evidence of intracranial metastatic disease [id number] CT HEAD WO CONTRAST Result Date: 12/12/2023 No evidence of recent intracranial hemorrhage, acute infarction, or mass. I have personally reviewed the images and the above interpretation and agree with the findings. [id number] CT ABDOMEN PELVIS W CONTRAST Result Date: [...] above interpretation and agree with the findings. [id number] IR PARACENTESIS-RADIOLOGY Result Date: 11/29/2023 Successful, uncomplicated paracentesis using sonographic guidance yielding 1.7 L fluid. LUNA Arguelles PA-C Interventional Radiology I have personally reviewed the images and the above interpretation and agree with the findings. [id number] NM BONE WHOLE BODY Result Date: 11/25/2023 1. New focus of uptake involving the left posterolateral ninth rib when compared to prior bone scanon 06/21/2023 is concerning for new osseous metastasis, although an interval fracture could have a similar appearance. No identifiable correlate on most recent chest CT on 11/09/2023. Correlate with history. 2. Osseous metastatic disease is otherwise similar to prior. 3. Faint diffuse uptake overlyingthe abdominal cavity, likely corresponding to ascites. Uptake raises the possibility of malignant ascites although it is noted that patient underwent peritoneal fluid sampling on 11/09/2023 which yielded no malignant cells. I have personally reviewed the images and the above interpretation and agreewith the findings. [id number] documented in this encounter Miscellaneous Notes * Addendum Note - Immanuel Carreon MD - 12/20/2023 1330 EDTAddended by: IMMANUEL ALVES on: 12/20/2023 16:59 Modules accepted: Orders documented in this encounter Plan of Treatment Upcoming Encounters Date Type Department Care Team (Late st Contact Info) Description 04/02/2024 10:30 EDT Appointment [facility] Interventional Radiology Unit [address] [place] [address] 04/02/2024 15:15 EDT Office Visit [facility] Surgical Oncology - [address] [phone] Adolfo Carreno MD [address] [place], [place] [phone] 04/05/2024 9:[address] [facility] - [facility]iative [facility] Services [address] [place] [address] [phone] Chichi Woods MD [address] [place] [phone] 04/11/2024 15:00 EDT Telemedicine [facility] Hematology & Oncology - [address] [phone] Immanuel Carreon MD [address] [place] [phone] 04/13/2024 13:30 EDT Appointment [facility] Hematology & Oncology - [address] [phone] 04/13/2024 14:00 EDT Appointment [facility] Hematology & Oncology - [address] [id number] 04/16/2024 10:[address] [facility] - [facility] [address] [place] [address] [phone] Chichi Woods MD [address] [place] [phone] 04/24/2024 9:00 EST Appointment [facility] Radiology CT Outpatient - [address] [address] 04/24/2024 11:00 EST Appointment [facility] Breast Imaging - [facility] [address] [phone] 04/27/2024 12:00 EST Appointment [facility] Hematology & Oncology [address] [phone] 05/02/2024 15:00 EST Telemedicine [facility] Hematology & Oncology - [address] [address] Immanuel Carreon MD [address] [place] [address], Level 2 [place] [phone] 05/04/2024 10:15 EST Ancillary Procedure [facility] Cardiology - [place] [address] 05/04/2024 11:30 EST Appointment [facility] Hematology & Oncology - [address] [phone] 05/04/2024 12:00 EST Appointment [facility] Cancer Center Hematology & Oncology - [facility] [address], [place] [address] 06/12/2024 13:00 EST Appointment [facility] Center Radiology CT - [facility] [address] [place] [address] documented as of this encounter Visit Diagnoses Diagnosis Malignant neoplasm of female breast, unspecified estrogen receptor status, unspecified laterality, unspecified site of breast (HCC-CMS)- Primary 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 Take on days 2 and 3 after chemotherapy. Patient Discharge 10/17/2023 12/20/2023 predniSONE (DELTASONE) 10 mg tabletIndications:Primar y malignant neoplasm of breast with metastasis (HCC-CMS) Take 1 Tablet by mouth daily with breakfast. Reorder 11/16/2023 12/20/2023 documented as of this encounter Care Teams Cd Storage And Materials Make Up Helper Relationship Specialty Start Date End Date Linda Blancas MD [facility] [address] [place] [address] PCP - General 01/06/11 Adolfo Carreno MD [address] [place] [phone] General Surgery 04/26/19 Augustina Colin MD PhD [address] [place] [address] 2 [place] [phone] Medical Oncology 04/26/19 documented as of this encounter
--- OUTSIDE RECORDS SUMMARY | 2024-03-20 14:37 | XMS_ITS | Encounter Summary ---
Author Organization [facility] Address [address] [place] [address] Care Team Providers Care Editor Index Name Role Phone Linda Blancas MD Primary Care Provider [phone] Adolfo Carreno MD Unavailable [phone] Reason for Visit * Reason Onset Date Comments Appointment Related 12/30/2023 Scheduling p aracentesis Encounter Details Date Type Department Care Team (Late st Contact Info) Description 12/30/2023 Telephone [facility] Gastroenterology - [facility] [address] [place] [address] Greer Ruby, RN [address] [place] [address] Appointment Related (Scheduling paracentesis) Social History Tobacco Use Types Packs/Day Years Used Date Smoking Tobacco: Never Passive Smoke Exposure: Never Smokeless Tobacco: Never Alcohol Use Standard Drinks/Week Comments Not Currently 1 (1 standard drink = 0.6 oz pur e alcohol) [facility] Utilities Answer Date Recorded In the past 12 months has e [employer], gas, oil, or water [employer] threatened to shut off services in your [...] living in a fpc (including now)? No 12/13/2023 Interpersonal Safety Answer [...] Telephone Encounter - Greer Ruby RN - 12/30/2023 1331 EDT No Radiologists at [facility], they do not have IR at [facility] and they do not do Paracentesis. Suggested General Surgery. Gen Surg at [facility] does not do paracentesis either. documented in this encounter Plan of Treatment Upcoming Encounters Date Type Department Care Team (Late st Contact Info) Description 04/02/2024 10:30 EDT Appointment [facility] Interventional Radiology Unit [address] [place] [address] [phone] 04/02/2024 15:15 EDT Office Visit [facility] Surgical Oncology - [address] [phone] Adolfo Carreno MD [address] [place] [address] [address] [place] [phone] 04/05/2024 9:30 EDT Telemedicine [facility] Palliative Care Services [address] [place] [address] [phone] Chichi Woods MD [address] [place] [phone] 04/11/2024 15:00 EDT Telemedicine [facility] Hematology & Oncology - [address] [phone] Alisson Carreon MD [address] [place] [address] [phone] 04/13/2024 13:30 EDT Appointment [facility] Hematology & Oncology [address] [phone] 04/13/2024 14:00 EDT Appointment [facility] Hematology & Oncology [address] [phone] 04/16/2024 10:00 EST Telemedicine [facility] - [facility] Palliative Care Services [address] [place] [address] [phone] Chichi Woods MD [address] [place] [address], [address] [phone] 04/24/2024 9:00 EST Appointment [facility] Radiology CT Outpatient - [address] [phone] 04/24/2024 11:00 EST Appointment [facility] Breast Imaging - [facility] [address] [place], [place] 917051 04/27/2024 12:00 EST Appointment [facility] Hematology & Oncology - [address] [phone] 05/02/2024 15:00 EST Telemedicine [facility] Hematology & Oncology - [address] [phone] Alisson Carreon MD [address] [place] [address], Level [address] [place] [phone] 05/04/2024 10:15 EST Ancillary Procedure [facility] Cardiology [place] [place] [address] 05/04/2024 11:30 EST Appointment [facility] Hematology & Oncology - [address] [phone] 05/04/2024 12:00 EST Appointment [facility] Hematology & Oncology [address] [phone] 06/12/2024 13:00 EST Appointment [facility] Center Radiology CT - [address] [phone] documented as of this encounter Visit Diagnoses Not on filedocumented in this encounter Care Teams Editor Index Relationship Specialty Start Date End Date Linda Blancas MD [facility] [address] [place] [address] PCP - General 01/06/11 Adolfo Carreno MD [address] [place] [address], [facility], [address] [place] [phone] General Surgery 04/26/19 documented as of this encounter
--- OUTSIDE RECORDS SUMMARY | 2024-03-20 14:37 | XMS_ITS | Encounter Summary ---
Author Organization [facility] Address [address] [place] [address] Care Team Providers Care Sew On Operator Name Role Phone Linda Blancas MD Primary Care Provider [phone] Adolfo Carreno MD Unavailable [phone] Encounter Details Date Type Department Care Team (Late st Contact Info) Description 01/02/2024 Orders Only [facility] [place] XRAY [address] [place] [address] Aracely Kebede Social History Tobacco Use Types Packs/Day Years [...] were you homeless or living in a custodial (including now)? No 12/13/2023 Interpersonal Safety Answer [...] EDT Appointment [facility] Interventional Radiology Unit [address] [place] [address] 04/02/2024 15:15 EDT Office Visit [facility] Surgical Oncology - [address] [phone] Adolfo Carreno MD [address] [place] [address] [phone] 04/05/2024 9:30 EDT Telemedicine [facility] Palliative Care Services [address] [place] [address] [phone] Chichi Woods MD [address] [place] [phone] 04/11/2024 15:00 EDT Telemedicine [facility] Hematology & Oncology - [address] [phone] Alisson Carreon MD [address] [place] [address] [phone] 04/13/2024 13:30 EDT Appointment [facility] Hematology & Oncology - [address] [phone] 04/13/2024 14:00 EDT Appointment [facility] Hematology & Oncology - [address] [address] 04/16/2024 10:00 EST Telemedicine [facility] Palliative Care Services [address] [place] [address] [phone] Chichi Woods MD [address] [place] [address] [phone] 04/24/2024 9:00 EST Appointment [facility] Radiology CT Outpatient - [address] [phone] 04/24/2024 11:00 EST Appointment [facility] Breast Imaging - [facility] [place] [address] [place] [address] 04/27/2024 12:00 EST Appointment [facility] Hematology & Oncology - [address] [address] 05/02/2024 15:00 EST Telemedicine [facility] Hematology & Oncology - [address] [address] Alisson Carreon MD [address] [place] [address] [phone] 05/04/2024 10:15 EST Ancillary Procedure [facility] Cardiology - [place] [address] [place] [address] 05/04/2024 11:30 EST Appointment [facility] Hematology & Oncology - [address] [address] 05/04/2024 12:00 EST Appointment [facility] Hematology & Oncology - [address] [address] 06/12/2024 13:00 EST Appointment [facility] Radiology CT - [address] [address] documented as of this encounter Visit Diagnoses Not on filedocumented in this encounter Care Teams Sew On Operator Relationship Specialty Start Date End Date Linda Blancas MD [address] [place] [address] 30 [place] [address] PCP - General 01/06/11 Adolfo Carreno MD [address] [place] [phone] General Surgery 04/26/19 documented as of this encounter
--- OUTSIDE RECORDS SUMMARY | 2024-03-20 14:37 | XMS_ITS | Encounter Summary ---
Author Organization [facility] Address [address] [place] [address] Care Team Providers Care Gun Synchronizer Name Role Phone Linda Blancas MD Primary Care Provider [phone] Adolfo Carreno MD Unavailable [phone] Reason for Referral * Radiology Services (Routine/Next Available) - Authorization Not Required Specialty Diagnoses / Procedures Referred By Contac t Referred To Contact Diagnoses Other ascites Procedures IR PARACENTESIS-RADIOLOGY Hugo Vergara MD PhD [address] [place] [phone] [facility] Referral ID Status Reason Start Date Expiration Date Visits Requested Visits Authorized [id number] Authorization Not Required 12/29/2023 1 1 Reason for Visit * Radiology Services (Routine/Next Available) - Authorization Not Required Specialty Diagnoses / Procedures Referred By Contac t Referred To Contact Diagnoses Other ascites Procedures IR PARACENTESIS-RADIOLOGY Hugo Vergara MD PhD [address] [place] [phone] [facility] Referral ID Status Reason Start Date Expiration Date Visits Requested Visits Authorized [id number] Authorization Not Required 12/29/2023 1 1 Encounter Details Date Type Department Care Team (Late st Contact Info) Description 01/03/2024 8:14 EDT - 01/03/2024 23:59 EDT Hospital Encounter [facility] Interventional Radiology Unit [address], [place] [phone] Uche Wilson PA-C 111 [facility] 1 [place] [phone] Lea Price MD [address] [phone] Other ascites Discharge Disposition: Home or Self Care Social History Tobacco Use Types Packs/Day Years Used Date Smoking Tobacco: Never Passive Smoke Exposure: Never Smokeless Tobacco: Never Alcohol Use Standard Drinks/Week Comments Not Currently 1 (1 standard drink = 0.6 oz pur e alcohol) [facility] Utilities Answer Date Recorded In the past 12 months has th e [employer], gas, oil, or water [email or web address] threatened to shut off services in your [...] were you homeless or living in a mcfp (including now)? No 12/13/2023 Interpersonal Safety Answer [...] this encounter Discharge Instructions * Discharge Instructions* Kolton Cruz RN - 01/03/2024 8:55 EDT Interventional Radiology Discharge Instructions Date: 01/03/2024 Procedure: Paracentesis (removal of fluid from your [...] after your procedure. When to contact the [facility] (call 911 if symptoms are [...] PLEASE CALL THE INTERVENTIONAL RADIOLOGY CLINIC AT [phone], OPTION 2 TO REACH THE NURSE TRIAGE [...] documented in this encounter Progress Notes * Kolton rCuz RN - 01/03/2024 0830 EDT Paracentesis Patient arrived from the waiting room to IR suite at 0829. Patient name and verified. Consent completed and verified. No complaints of pain. Patients allergies, medications and lab results reviewed. Patient educated on procedure, patient verbalized understanding. A pre-procedure ultrasound was completed to assess fluid volume and procedure necessity. Sterile prep of patient's R abd with Duraprep disinfecting solution by [facility] in the usual sterile fashion in accordance with manufacturers recommendations. Ultrasound guidance utilized to access fluid, catheter placed without incident. Total fluid volume removed: 3000 mL Fluid color: yellow Catheter removed and band aid applied to puncture site. Procedure completed by TK with [facility] as supervising provider. Procedure well tolerated by patient. Nocomplaints of procedural pain. Vital signs stable. Discharge instructions reviewed with patient, no further questions at this time. Patient escorted to the waiting area in stable condition. Discharged to home. documented in this encounter Procedure Notes * Uche Wilson PA-C - 01/03/2024 0830 EDT IR Procedure Note Procedure: U/S guided paracentesis Date Performed: 01/03/2024 Radiologist/Tread Tuber Machine Operator(s): MD Albert/GRISEL Wilson Sedation/Anesthesia: Local Time Out: A time-out was completed prior to procedure verifying correct patient, procedure, site, positioning, and special equipment if applicable. Estimated Blood Loss: Unless otherwise noted, there was no blood loss, specimens removed, cultures obtained, or drains retained. Specimens: N/A Fluoroscopy Time: See dictated procedure note Contrast Volume: none Complications: none Condition: stable Post Procedure Diagnosis: Ascites Findings: 3 L fluid Recommendations: F/U IR PRN Uche Wilson PA-C 01/03/2024 9:19 documented in this encounter Plan of Treatment Upcoming Encounters Date Type Department Care Team (Late st Contact Info) Description 04/02/2024 10:30 EDT Appointment [facility] Interventional Radiology Unit [address] [place] [address] [phone] 04/02/2024 15:15 EDT Office Visit [facility] Surgical Oncology - [address] [phone] Adolfo Carreno MD [address] [place] [address] [address] [place] [phone] 04/05/2024 9:30 EDT Telemedicine [facility] - [facility] Palliative Care Services [address] [place] [address] [phone] Chichi Woods MD [address] [place] [phone] 04/11/2024 15:00 EDT Telemedicine [facility] Hematology & Oncology [address] [phone] Alisson Carreon MD [address] [place] [phone] 04/13/2024 13:30 EDT Appointment [facility] Hematology & Oncology [address] [phone] 04/13/2024 14:00 EDT Appointment [facility] Hematology & Oncology - [address] [phone] 04/16/2024 10:00 EST Telemedicine [facility] - [facility] Palliative Care Services [address] [place] [address] [phone] Chichi Woods MD [address] [place] [address], [address] [phone] 04/24/2024 9:00 EST Appointment [facility] Radiology CT Outpatient - [address] [id number] 04/24/2024 11:00 EST Appointment [facility] Breast Imaging - [address] [phone] 04/27/2024 12:00 EST Appointment [facility] Hematology & Oncology - [address] [phone] 05/02/2024 15:00 EST Telemedicine [facility] Hematology & Oncology - [address] [phone] Alisson Carreon MD [address] [place] [address], Level [address] [place] [phone] 05/04/2024 10:15 EST Ancillary Procedure [facility] Cardiology - [place] [address] 05/04/2024 11:30 EST Appointment [facility] Hematology & Oncology - [address] [phone] 05/04/2024 12:00 EST Appointment [facility] Hematology & Oncology [address] [phone] 06/12/2024 13:00 EST Appointment [facility] Radiology CT - [address] [phone] documented as of this encounter Procedures Procedure Name Priority Date/Time Associated Diagnosis Comments IR PARACENTESIS-RADIOL OGY Routine 01/03/2024 9:15 EDT Other ascites documented in this encounter Results * IR PARACENTESIS-RADIOLOGY (01/03/2024 9:15 EDT) Anatomical Region Laterality Modality N/A X-Ray Angiograph y 01/03/2024 15:3 8 EDT Impressions 01/03/2024 15:38 EDT Successful, uncomplicated paracentesis using sonographic guidance yielding ??3 L of fluid. ?? LUNA Arguelles PA-C Interventional Radiology I have personally reviewed the images and the above interpretation and agree with the findings. [id number] Narrative 01/03/2024 15:38 EDT IR PARACENTESIS-RADIOLOGY ??01/03/2024 [...] procedure well without complication. Resulting Agency Comment [id number] Procedure Note Lea Price MD - 01/03/2024 [...] the above interpretation andagree with the findings. [id number] Hugo Vergara MD PhD IMG IR ORDERABL ES documented in this encounter Visit Diagnoses Diagnosis Other ascites documented in this encounter Care Teams Gun Synchronizer Relationship Specialty Start Date End Date Linda Blancas MD [facility] [place] [address] [place] [address] PCP - General 01/06/11 dAolfo Carreno MD [address] [place] [address], [address] [place] [phone] General Surgery 04/26/19 documented as of this encounter
--- OUTSIDE RECORDS SUMMARY | 2024-03-20 14:37 | XMS_ITS | Encounter Summary ---
Author Organization [facility] Address [address] [place] [address] Care Team Providers Care Block Placer Name Role Phone Linda Blancas MD Primary Care Provider [phone] Adolfo Carreno MD Unavailable [phone] Augustina Colin MD PhD Unavailable Unavailable Encounter Details Date Type Department Care Team (Late st Contact Info) Description 12/27/2023 16:30 EDT - 12/27/2023 23:59 EDT Hospital Encounter [facility] [address] [place] [address] Lab, [facility] Other ascites Discharge Disposition: Home or Self Care Social History Tobacco Use Types Packs/Day Years Used Date Smoking Tobacco: Never Passive Smoke Exposure: Never Smokeless Tobacco: Never Alcohol Use Standard Drinks/Week Comments Not Currently 1 (1 standard drink = 0.6 oz pur e alcohol) [facility] Utilities Answer Date Recorded In the past 12 months has [employer], gas, oil, or water [employer] threatened to shut off services in your [...] time in the past 12 [place], were you homeless or living in a assisted (including now)? No 12/13/2023 Interpersonal Safety Answer [...] Description 04/02/2024 10:30 EDT Appointment [facility] Interventional Radiology Unit [address] [place], [place] 1243[address] 04/02/2024 15:15 EDT Office Visit [facility] Surgical Oncology - [address] [phone] Adolfo Carreno MD [address] [place] [phone] 04/05/2024 9:30 EDT Telemedicine [facility] Palliative Care Services [address] [place] [address] [phone] Chichi Woods MD [address] [place] [address] [phone] 04/11/2024 15:00 EDT Telemedicine [facility] Hematology & Oncology [address] [phone] Alisson Carreon MD [address] [place] [phone] 04/13/2024 13:30 EDT Appointment [facility] Hematology & Oncology [address] [phone] 04/13/2024 14:00 EDT Appointment [facility] Hematology & Oncology [address] [phone] 04/16/2024 10:[address] [facility] - [facility] Palliative Care Services [address] [place] [address] [phone] Chichi Woods MD [address] [place] [phone] 04/24/2024 9:00 EST Appointment [facility] Radiology CT Outpatient - [address] [phone] 04/24/2024 11:00 EST Appointment [facility] Breast Imaging - [facility] [address] [place], [place] [phone] 04/27/2024 12:00 EST Appointment [facility] Hematology & Oncology [address] [phone] 05/02/2024 15:00 EST Telemedicine [facility] Hematology & Oncology - [address] [phone] Alisson Carreon MD [address] [place] [address], Level [address] [place] [phone] 05/04/2024 10:15 EST Ancillary Procedure [facility] Cardiology - [place] [address] 05/04/2024 11:30 EST Appointment [facility] Hematology & Oncology - [address] [phone] 05/04/2024 12:00 EST Appointment [facility] Hematology & Oncology - [facility] [address] [place] [address] 06/12/2024 13:00 EST Appointment [facility] Radiology CT - [facility] [address] [place] [address] documented as of this encounter Procedures Procedure Name Priority Date/Time Associated Diagnosis Comments BASIC METABOLIC PANEL (BMP) Routine 12/27/2023 16:55 EDT Other ascites documented in this encounter Results * (ABNORMAL) BASIC METABOLIC PANEL (BMP) (12/27/2023 16:55 EDT) Sodium 134(L) 136 - 145 mmol/L 12/27/2023 18:08 [facility] Potassium 4.2 3.5 - 5.1 mmol/L 12/27/2023 18:08 [facility] Chloride 100 96 - 107 mmol/L 12/27/2023 18:08 [facility] CO2 Total 30 21 - 32 mmol/L 12/27/2023 18:08 [facility] Anion Gap 4(L) 5 - 14 mmol/L 12/27/2023 18:08 [facility] Glucose 100(H) 70 - 99 mg/dl 12/27/2023 18:08 [facility] Calcium 7.7(L) 8.5 - 10.1 mg/dL 12/27/2023 18:08 [facility] BUN 22 7 - 25 mg/dL 12/27/2023 18:08 [facility] Creatinine 0.86 0.55 - 1.02 mg/dL 12/27/2023 18:08 [facility] eGFR 76 >60 mL/min/1.73 m2 12/27/2023 18:08 [facility] Blood VENOUS BLOOD / Unknown Venipuncture / Unknown 12/27/2023 16:55 EDT 12/27/2023 16:56 EDT Hugo Vergara MD PhD CHEMISTRY & BLO OD GAS ORDERABLES [facility] [address] [place] [address] documented in this encounter Visit Diagnoses Diagnosis Other ascites documented in this encounter Care Teams Block Placer Relationship Specialty Start Date End Date Linda Blancas MD [facility] [address] [place], [place] 686672 PCP - General 01/06/11 Adolfo Carreno MD [address] [place] [phone] General Surgery 04/26/19 Augustina Colin MD PhD [address] [place] [phone] Medical Oncology 04/26/19 documented as of this encounter
--- OUTSIDE RECORDS SUMMARY | 2024-03-20 14:37 | XMS_ITS | Encounter Summary ---
Author Organization [facility] Address [address] [place] [address] Care Team Providers Care [employer] Labourer Name Role Phone Linda Blancas MD Primary Care Provider [phone] Adolfo Carreno MD Unavailable [phone] Encounter Details Date Type Department Care Team (Late st Contact Info) Description 12/30/2023 Telephone [facility] Cancer Center Hematology & Oncology - [facility] [address] [place], [place] 815791 Alisson Carreon MD 111 [facility], [address] [place] [phone] Social History Tobacco Use Types Packs/Day Years Used Date Smoking Tobacco: Never Passive Smoke Exposure: Never Smokeless Tobacco: Never Alcohol Use Standard Drinks/Week Comments Not Currently 1 (1 standard drink = 0.6 oz pur e alcohol) [facility] Utilities Answer Date Recorded In the past 12 months has [employer], gas, oil, or water [employer] threatened to shut off services in your [...] Contact Info) Description 04/02/2024 10:30 EDT Appointment [facility] Interventional Radiology Unit [address] [place] [address] [phone] 04/02/2024 15:15 EDT Office Visit [facility] Surgical Oncology - [address] [phone] Adolfo Carreno MD [address] [place] [phone] 04/05/2024 9:30 EDT Telemedicine [facility] Palliative Care Services [address] [place] [address] [phone] Chichi Woods MD [address] [place] [phone] 04/11/2024 15:00 EDT Telemedicine [facility] Hematology & Oncology - [address] [phone] Alisson Carreon MD [address] [place] [phone] 04/13/2024 13:30 EDT Appointment [facility] Hematology & Oncology [address] [phone] 04/13/2024 14:00 EDT Appointment [facility] Hematology & Oncology [address] [phone] 04/16/2024 10:00 EST Telemedicine [facility] Palliative Care Services [address] [place] [address] [phone] Chichi Woods MD [address] [place] [phone] 04/24/2024 9:00 EST Appointment [facility] Radiology CT Outpatient - [address] [phone] 04/24/2024 11:00 EST Appointment [facility] Breast Imaging - [facility] [place] [address] [place] [address] 04/27/2024 12:00 EST Appointment [facility] Hematology & Oncology - [address] [phone] 05/02/2024 15:00 EST Telemedicine [facility] Hematology & Oncology [address] [phone] Alisson Carreon MD [address] [place] [address], Level [address] [place] [phone] 05/04/2024 10:15 EST Ancillary Procedure [facility] Cardiology [place] [address] 05/04/2024 11:30 EST Appointment [facility] Hematology & Oncology [address] [address] 05/04/2024 12:00 EST Appointment [facility] Hematology & Oncology [address] [phone] 06/12/2024 13:00 EST Appointment [facility] Radiology CT - [address] [phone] documented as of this encounter Visit Diagnoses Not on filedocumented in this encounter Additional Health Concerns Infection Onset Date Last Indicated Resolved Time R/O COVID-19 01/08/2024 01/08/2024 01/08/2024 18:2 6 EDT R/O COVID-19 01/16/2024 01/16/2024 01/16/2024 17:5 0 EDT documented as of this encounter Care Teams [employer] Labourer Relationship Specialty Start Date End Date Linda Blancas MD [address] [place] [address] PCP - General 01/06/11 Adolfo Carreno MD [address] [place] [address], [facility] 2 [place] [phone] General Surgery 04/26/19 documented as of this encounter
--- OUTSIDE RECORDS SUMMARY | 2024-03-20 14:37 | XMS_ITS | Encounter Summary ---
Author Organization [facility] Address [address] [place] [address] Care Team Providers Care Sales Manager Name Role Phone Linda Blancas MD Primary Care Provider [phone] Adolfo Carreno MD Unavailable [phone] Augustina Colin MD PhD Unavailable Unavailable Reason for Visit * Episode Based Medications (Routine) - Authorization Not Required Specialty Diagnoses / Procedures Referred By [facility] Referred To Contact Diagnoses Malignant neoplasm of right female breast, unspecified estrogen receptor status, unspecified site of breast (HCC-CMS) Augustina Colin MD PhD [facility] Ep2 Infusion [address] [place] [address] Referral ID Status Reason Start Date Expiration Date Visits Requested Visits Authorized [id number] Authorization Not Required 10/12/2023 3 11 Encounter Details Date Type Department Care Team (Latest Contact Info) Description 12/20/2023 11:49 EDT - 12/20/2023 23:59 EDT Hospital Encounter [facility] Hematology & Oncology - [facility] [address] [place], [place] [address] Malignant neoplasm of right female breast, unspecified [...] = 0.6 oz pur e alcohol) [facility] Utilities Answer Date Recorded In the [...] documented in this encounter Progress Notes * Herminio Castro, RN - 12/20/2023 1415 EDT Out-patient Chemotherapy Note Patient presents to clinic today for cycle #4 , day #1 of Fam-Trastuzumab Deruxtecan (Breast, Lung)treatment plan. Sendy reports feeling much better after having a paracentesis today. She had an appointment with Dr. Carreon prior to infusion and Emend was added to her treatment plan due to nausea after treatment. Reviewed lab results with patient. CBC: Lab Results Component Value Date WBC 7.66 12/20/2023 HGB 8.4 (L) 12/20/2023 HCT 25.5 (L) 12/20/2023 PLT 209 12/20/2023 NEUTROABS 6.32 12/20/2023 Chemistry: Lab Results Component Value Date NA 135 (L) 12/20/2023 K 3.8 12/20/2023 BUN 19 12/20/2023 CREATININE 0.52 12/20/2023 CALCIUM 8.1 (L) 12/20/2023 MG 1.9 12/20/2023 LFT: Lab Results Component Value Date TBIL 1.5 (H) 12/20/2023 ALKPHOS 321 (H) 12/20/2023 AST 53 (H) 12/20/2023 ALT 41 (H) 12/20/2023 LIPASE 116 12/12/2023 Parameters for today???s treatment met. CrCl 97.9 ml/min. Calcium 8.1, Calculated Calcium 9.3, within parameters. Patient noted with single IVAD for access. IV flushed, site patent, unremarkable, and without redness and blood return noted before and after all chemotherapy and/or biotherapy infusions. Patient received pre-meds, Aloxi 0.25mg IVP, Dexamethasone 8mg PO, Emend 150mg IVPB (see MAR). Enhertu 289mg administered over 30 minutes via in-line filter. Denosumab 120mg administered subcutaneously to LUE, dressing applied. Patient reports taking Vitamin D and Calcium supplements. She had a dental filling on 10/26, per patient is okay to receive injection today. Patient tolerating chemotherapy treatment at this time with no signs of reaction or side effects. Patient verbally educated on all medications administered today. Patient expressed understanding ofeducation provided and no barriers identified. Patient' s single IVAD noted to have brisk blood return and device flushed per hospital policy. Access site noted to be patent, unremarkable, and without redness. single IVAD de-accessed, dressing applied. Patient and family encouraged to call clinic with any issues. I was supervised by Dr. Easley who was present and immediately available in the office suite. HERMINIO CASRTO RN 12/20/2023 documented in this encounter Miscellaneous Notes * Addendum Note - Rosa Maria Merritt - 12/20/2023 6975 EDTEncounter addended by: Rosa Maria Merritt on: 12/21/2023 9:39 Actions taken: Charge Capture section accepted * Addendum Note - Radha Schmitz - 12/20/2023 1415 EDTEncounter addended by: Radha Schmitz on: 12/22/2023 11:05 Actions taken: Charge Capture section accepted documented in this encounter Plan of Treatment Upcoming Encounters Date Type Department Care Team (Late st Contact Info) Description 04/02/2024 10:30 EDT Appointment [facility] Interventional Radiology Unit [address] [place] [address] [phone] 04/02/2024 15:15 EDT Office Visit [facility] Surgical Oncology - [address] [phone] Adolfo Carreno MD [address] [place] [address] 2 [place] [phone] 04/05/2024 9:30 EDT Telemedicine [facility] - [facility] Palliative Care Services [address] [place] [address] [phone] Chichi Woods MD [address] [place] [address] [phone] 04/11/2024 15:00 EDT Telemedicine [facility] Hematology & Oncology [address] 161471 Alisson Carreon MD [address] [place] [address] [phone] 04/13/2024 13:30 EDT Appointment [facility] Hematology & Oncology [address] [phone] 04/13/2024 14:00 EDT Appointment [facility] Hematology & Oncology - [address] [phone] 04/16/2024 10:00 EST Telemedicine [facility] - [facility] Palliative Care Services [address] [place] [address] [phone] Chichi Woods MD [address] [place] [address], [address] [phone] 04/24/2024 9:00 EST Appointment [facility] Radiology CT Outpatient - [address] [id number] 04/24/2024 11:00 EST Appointment [facility] Breast Imaging - [address] [phone] 04/27/2024 12:00 EST Appointment [facility] Hematology & Oncology - [address] [phone] 05/02/2024 15:00 EST Telemedicine [facility] Hematology & Oncology - [address] [phone] Alisson Carreon MD [address] [place] [address], Level 2 [place] [phone] 05/04/2024 10:15 EST Ancillary Procedure [facility] Cardiology - [place] [address] 05/04/2024 11:30 EST Appointment [facility] Hematology & Oncology - [address] [phone] 05/04/2024 12:00 EST Appointment [facility] Hematology & Oncology [address] [phone] 06/12/2024 13:00 EST Appointment [facility] Radiology CT - [address] [phone] documented as of this encounter Procedures Procedure Name Priority Date/Time Associated Diagnosis Comments VITAMIN D (25,OH) Add-On 12/20/2023 11: 51 EDT documented in this encounter Results * VITAMIN D (25,OH) (12/20/2023 11:51 EDT) 25OH Vitamin D Tot 97 30 - 100 ng/mL 12/21/2023 12:30 EDT [facility] Comment: Vitamin D 25,OH Interpretive Ranges: Deficiency: ??<10.0 ng/mL Insufficiency: ??10.0 - 30.0 ng/mL Sufficiency: ??30.0 - 100.0 ng/mL Toxicity: ??>100.0 ng/mL Blood VENOUS BLOOD / Unknown Venipuncture / Unknown 12/20/2023 11:51 EDT 12/20/2023 12:09 EDT Alisson Carreon MD CHEMISTRY & BLOOD G ORDERABLES [facility] [address] [place] [address] documented in this encounter Visit [...] mg, subcutaneous, NOW X1, 1 dose, On Tue12/20/23 at 1545, Routine Given 12/20/2023 16:55 EDT 120 mg Left Ar m dexAMETHasone (DECADRON) tablet 8 mg 8 mg, oral, NOW X1, 1 dose, On Tue12/20/23 at 1515, Routine Given 12/20/2023 15:18 EDT 8 mg dextrose 5 % (D5W) infusion intravenous, PRN, Starting on Tue12/20/23 at 1456, Until Tue12/21/23 at 1455, Other Given 12/20/2023 15:10 EDT fam-trastuzumab deruxtecan-nxki (Enhertu) 289 mg in dextrose 5% (D5W) 100 mL IVPB 289 mg (rounded from 288.9 mg = 5.4 mg/kg ? 53.5 kg Treatment plan Recorded weight), intravenous, Administer over 90 Minutes, NOW X1, 1 dose, On Tue12/20/23 at 1545 Given 12/20/2023 16:05 EDT 289 mg fosaprepitant (EMEND) 150 mg in sodium chloride (NS) 0.9 % 150 mL infusion 150 mg, intravenous, Administer over 30 Minutes, NOW X1, 1 dose, On Tue12/20/23 at 1515, Routine New Bag 12/20/2023 15:22 EDT 150 mg palonosetron (ALOXI) injection 0.25 mg 0.25 mg, intravenous, NOW X1, 1 dose, On Tue12/20/23 at 1515, Routine Given 12/20/2023 15:14 EDT 0.25 mg documented in this encounter Orders Medications Ordered That Vj ht Not Have Been Administered Count Last Ordered Date First Ordered Date diphenhydrAMINE (BENADRYL) injection 50 mg 1 12/20/2023 epinephrine anaphylaxis kit 1 12/20/2023 methylPREDNISolone sod suc(P F) (SOLU-MEDROL) injection 100 mg 1 12/20/2023 Nursing Count Last Ordered Date First Orde red Date INFORMED CONSENT 2 12/20/2023 NURSING COMMUNICATION 1 12/20/2023 Appointment Requests Count Last Ordered Date Fi rst Ordered Date ONCBCN INFUSION APPOINTMENT REQUEST - CALCULATED 12/20/2023 ONCBCN INJECTION APPOINTMENT REQUEST 02/2024 documented in this encounter Care Teams Sales Manager Relationship Specialty Start Date End Date Linda Blancas MD [facility] [address] [place] [address] PCP - General 01/06/11 Adolfo Carreno MD [address] [place] [address], Level 2 [place] [phone] General Surgery 04/26/19 Augustina Colin MD PhD [address] [place] [address] 2 [place] [phone] Medical Oncology 04/26/19 documented as of this encounter
--- OUTSIDE RECORDS SUMMARY | 2024-03-20 14:37 | XMS_ITS | Encounter Summary ---
Author Organization [facility] Address [address] [place] [address] Care Team Providers Care Experimental Rocketsled Mechanic Name Role Phone Linda Blancas MD Primary Care Provider [phone] Adolfo Carreno MD Unavailable [phone] Encounter Details Date Type Department Care Team (Late st Contact Info) Description 01/02/2024 Orders Only [facility] XRAY [address] [place] [address] Aracely Kebede Social History Tobacco Use Types Packs/Day Years Used Date Smoking Tobacco: Never Passive Smoke Exposure: Never Smokeless Tobacco: Never Alcohol Use Standard Drinks/Week Comments Not Currently 1 (1 standard drink = 0.6 oz pur e alcohol) [facility] Utilities Answer Date Recorded In [...] in a group home (including now)? No 12/13/2023 Interpersonal Safety Answer Date Record ed How often does anyone, manuela yung family, hit, punch or physically hurt you? 12/12/2023 How often does anyone, manuela ynug family, insult, scream, curse or threaten to [...] Contact Info) Description 04/02/2024 10:30 EDT Appointment [facility] Interventional Radiology Unit [address] [place] [phone] 04/02/2024 15:15 EDT Office Visit [facility] Surgical Oncology - [address] 333461 Adolfo Carreno MD [address] [place] [address] [phone] 04/05/2024 9:30 EDT Telemedicine [facility] Palliative Care Services [address] [place] [address] [phone] Chichi Woods MD [address] [place] [address] [phone] 04/11/2024 15:00 EDT Telemedicine [facility] Hematology & Oncology - [address] 528571 Alisson Carreon MD [address] [place] [address] [phone] 04/13/2024 13:30 EDT Appointment [facility] Hematology & Oncology - [address] [phone] 04/13/2024 14:00 EDT Appointment [facility] Hematology & Oncology - [address] [address] 04/16/2024 10:00 EST Telemedicine [facility] Palliative Care Services [address] [place] [address] [phone] Chichi Woods MD [address] [place] [address] [phone] 04/24/2024 9:00 EST Appointment [facility] Radiology CT Outpatient - [address] [id number] 04/24/2024 11:00 EST Appointment [facility] Breast Imaging - [facility] [place] [address] [place] [address] 04/27/2024 12:00 EST Appointment [facility] Hematology & Oncology - [address] [address] 05/02/2024 15:00 EST Telemedicine [facility] Hematology & Oncology - [address] [address] Alisson Carreon MD [address] [place] [address] [phone] 05/04/2024 10:15 EST Ancillary Procedure [facility] Cardiology - [place] [address] [place] [address] 05/04/2024 11:30 EST Appointment [facility] Hematology & Oncology - [address] [address] 05/04/2024 12:00 EST Appointment [facility] Hematology & Oncology - [address] [address] 06/12/2024 13:00 EST Appointment [facility] Radiology CT - [address] [address] documented as of this encounter Visit Diagnoses Not on filedocumented in this encounter Care Teams Experimental Rocketsled Mechanic Relationship Specialty Start Date End Date Linda Blancas MD [address] [place] [address] 30 [place] [address] PCP - General 01/06/11 Adolfo Carreno MD [address] [place] [address] [phone] General Surgery 04/26/19 documented as of this encounter
--- OUTSIDE RECORDS SUMMARY | 2024-03-20 14:37 | XMS_ITS | Encounter Summary ---
Author Organization [facility] Address [address] [place] [address] Care Team Providers Care Health Aide Name Role Phone Linda Blancas MD Primary Care Provider [phone] Adolfo Carreno MD Unavailable [phone] Augustina Colin MD PhD Unavailable Unavailable Reason for Visit * Reason Onset Date Comments Appointment Related 12/22/2023 Encounter Details Date Type Department Care Team (Late st Contact Info) Description 12/22/2023 Telephone [facility] Hematology & Oncology - [facility] [address] [place] [address] Alisson Carreon MD [address] [facility], Level 2 [place] [phone] Appointment Related Social History Tobacco [...] in a senior care (including now)? No 12/13/2023 Interpersonal Safety Answer [...] Telephone Encounter - Sandhya Estrada - 12/22/2023 1116 EDT Received message from . Patient had gotten CT scan on 12/11 when admitted. Scan scheduled on 01/09 needed to be moved to March. Called radiology, Scan rescheduled on 03/13 @ 0830 - arrival time @ 0815. Called patient with update. LMOM with appt information. Also left message to call back regarding the timing of the lab draw for same-day infusion. Left PAC# documented in this encounter Plan of Treatment Upcoming Encounters Date Type Department Care Team (Late st Contact Info) Description 04/02/2024 10:30 EDT Appointment [facility] Interventional Radiology Unit [address] [place] [address] 04/02/2024 15:15 EDT Office Visit [facility] Surgical Oncology - [address] 228351 Adolfo Carreno MD [address] [place] [address] 2 [place] [phone] 04/05/2024 9:30 EDT Telemedicine [facility] Palliative Care Services [address] [place] [address] [phone] Chichi Woods MD [address] [place] [address], [address] [phone] 04/11/2024 15:00 EDT Telemedicine [facility] Hematology & Oncology - [address] [phone] Alisson Carreon MD [address] [place] [address] 2 [place] [phone] 04/13/2024 13:30 EDT Appointment [facility] Hematology & Oncology - [address] [phone] 04/13/2024 14:00 EDT Appointment [facility] Hematology & Oncology [address] [address] 04/16/2024 10:00 EST Telemedicine [facility] - [facility] Palliative Care Services [address] [place] [address] [phone] hCichi Woods MD [address] [place] [address] [phone] 04/24/2024 9:00 EST Appointment [facility] Radiology CT Outpatient - [address] [id number] 04/24/2024 11:00 EST Appointment [facility] Breast Imaging - [facility] [address] [phone] 04/27/2024 12:00 EST Appointment [facility] Hematology & Oncology - [address] [phone] 05/02/2024 15:00 EST Telemedicine [facility] Hematology & Oncology [address] 366231 Alisson Carreon MD [address] [place] [address], Level [address] [place] [phone] 05/04/2024 10:15 EST Ancillary Procedure [facility] Cardiology - [address] [address] 05/04/2024 11:30 EST Appointment [facility] Hematology & Oncology - [address] [phone] 05/04/2024 12:00 EST Appointment [facility] Hematology & Oncology - [address] [address] 06/12/2024 13:00 [facility] Rad[facility] - [address] [phone] documented as of this encounter Visit Diagnoses Not on filedocumented in this encounter Care Teams Health Aide Relationship Specialty Start Date End Date Linda Blancas MD [facility] [address] [place], [place] [address] PCP - General 01/06/11 Adolfo Carreno MD [address] [place] [address] 2 [place] [phone] General Surgery 04/26/19 Augustina Colin MD PhD [address] [place] [address] 2 [place] [phone] Medical Oncology 04/26/19 documented as of this encounter
--- OUTSIDE RECORDS SUMMARY | 2024-03-20 14:38 | XMS_ITS | Encounter Summary ---
Author Organization [facility] Address [address] [place] [address] Care Team Providers Care [facility] Lab Technician Name Role Phone Linda Blancas MD Primary Care Provider [phone] Adolfo Carreno MD Unavailable [phone] Augustina Colin MD PhD Unavailable Unavailable Reason for Visit * Reason Onset Date Comments Other 12/07/2023 Encounter Details Date Type Department Care Team (Late st Contact Info) Description 12/07/2023 Telephone [facility] Gastroenterology - [facility] [address] [place] [address] Hugo Vergara MD PhD [address] [place] [address], Level [address] [place] [phone] Other Social History Tobacco Use Types Packs/Day Years Used Date Smoking Tobacco: Never Passive Smoke Exposure: Never Smokeless Tobacco: Never Alcohol Use Standard Drinks/Week Comments Not Currently 1 (1 standard drink = 0.6 oz pur e alcohol) Interpersonal Safety Answer Date Record ed Physically Hurt Never 01/13/2020 Verbally Threaten Not on file 01/13/2020 Sex and Gender Information Value Date Recorded Sex Assigned at Female 05/17/2019 15:31 EST Gender Identity Female 04/26/2019 13:08 EST Sexual Orientation Bisexual 08/26/2022 10 :47 EDT documented as of this encounter Functional Status Functional Status Response Date of Assess ment Are you deaf or do you have serious difficulty h earing? No 11/08/2023 Do you have serious difficul ty walking or climbing stairs? (5 years old or older) No 07/07/2017 Do you have difficulty dress ing or bathing? (5 years old or older) No 07/07/2017 Because of a physical, menta l, or emotional condition, does this person have difficulty doing errands alone such as visiting a doctor's office or shopping? No 03/24/2018 Cognitive Status Response Date of Assessm ent Because of a physical, menta l, or emotional condition, does this person have serious difficulty concentrating, remembering, or making decisions? No 03/24/2018 documented as of this encounter Miscellaneous Notes * Telephone Encounter - Yovana Bowman RN - 12/07/2023 1411 EDT The patient was informed of Dr. Vergara's plan (OK to decrease furosemide to 10 mg daily and spironolactone to 25 mg, get labs at [facility]). She verbalized understanding. * Telephone Encounter - Yovana Bowman RN - 12/07/2023 1328 EDT The patient started furosemide and spironolactone last Tuesday. She has lost 10 lbs. Current weight is 119.6 lbs. She states that her abdomen is 95% flat now. She feels like herself again. She is calling because she is experiencing leg cramping. She will have the leg cramping when swimming , randomly in the evening, or during the night ( which wakes her up). She did not take the diuretics yesterday, or today. She is due for labs at [facility] on Tuesday. She is asking if she should restart the diuretics at this time. * Telephone Encounter - Megan Galdamez - 12/07/2023 1132 EDT Patient calling says she is experiencing symptoms from taking dieretics which is causing lots of cramping in her legs. Please call back to discuss. documented in this encounter Plan of Treatment Upcoming Encounters Date Type Department Care Team (Late st Contact Info) Description 04/02/2024 10:30 EDT Appointment [facility] Interventional Radiology Unit [address] [place] [address] [phone] 04/02/2024 15:15 EDT Office Visit [facility] Surgical Oncology - [address] 732301 Adolfo Carreno MD [address] [place] [address] 2 [place] [phone] 04/05/2024 9:30 EDT Telemedicine [facility] Palliative Care Services [address] [place] [address] [phone] Chichi Woods MD [address] [place] [address] [phone] 04/11/2024 15:00 EDT Telemedicine [facility] Hematology & Oncology [address] 451191 Alisson Carreon MD [address] [place] [address] [phone] 04/13/2024 13:30 EDT Appointment [facility] Hematology & Oncology [address] [phone] 04/13/2024 14:00 EDT Appointment [facility] Hematology & Oncology [address] [phone] 04/16/2024 10:00 EST Telemedicine [facility] Palliative Care Services [address] [place] [address] [phone] Chichi Woods MD [address] [place] [address], [address] [place] [phone] 04/24/2024 9:00 EST Appointment [facility] Radiology CT Outpatient - [address] [id number] 04/24/2024 11:00 EST Appointment [facility] Breast Imaging - [facility] [address] [place] [address] [place], [place] 778261 04/27/2024 12:00 EST Appointment [facility] Hematology & Oncology [address] 260601 05/02/2024 15:00 EST Telemedicine [facility] Hematology & Oncology [address] 295291 Alisson Carreon MD [address] [place] [address], Level [address] [place] [phone] 05/04/2024 10:15 EST Ancillary Procedure [facility] Cardiology - [address] [place], [place] [phone] 05/04/2024 11:30 EST Appointment [facility] Hematology & Oncology [address] [id number] 05/04/2024 12:00 EST Appointment [facility] Hematology & Oncology [address] [phone] 06/12/2024 13:00 EST Appointment [facility] Radiology CT - [address] [phone] documented as of this encounter Visit Diagnoses Not on filedocumented in this encounter Care Teams [facility] Lab Technician Relationship Specialty Start Date End Date Linda Blancas MD [facility] [address] [place] [address] PCP - General 01/06/11 Adolfo Carreno MD [address] [place] [address], [facility] 2 [place] [phone] General Surgery 04/26/19 Augustina Colin MD PhD [address] [place] [address] 2 [place] [phone] Medical Oncology 04/26/19 documented as of this encounter
--- OUTSIDE RECORDS SUMMARY | 2024-03-20 14:38 | XMS_ITS | Encounter Summary ---
Author Organization [facility] Address [address] [place] [address] Care Team Providers Care Roll Form Operator Name Role Phone Linda Blancas MD Primary Care Provider [phone] Adolfo Carreno MD Unavailable [phone] Augustina Colin MD PhD Unavailable Unavailable Reason for Visit * Reason Onset Date Comments Coordination Of Care 12/12/2023 Encounter Details Date Type Department Care Team (Late st Contact Info) Description 12/12/2023 Telephone [facility] Hematology & Oncology - [address] [address] Alisson Carreon MD [address] [facility], Level [address] [place] [address] Coordination Of Care Social History Tobacco Use Types Packs/Day Years Used Date Smoking Tobacco: Never Passive Smoke Exposure: Never Smokeless Tobacco: Never Alcohol Use Standard Drinks/Week Comments Not Currently 1 (1 standard drink = 0.6 oz pur e alcohol) [facility] Utilities Answer Date Recorded In [...] any time in the past 12 m [facility], were you homeless or living in a fdc (including now)? No 12/13/2023 Interpersonal Safety Answer [...] encounter Miscellaneous Notes * Telephone Encounter - Daily, SHELLEY Du - 12/12/2023 1132 EDT called to let us know they are in [place], almost to the hospital. Says that on further examination of pt that abdomen is distending and likely needing a para today. Let pt and know that I did inform the ER of the situation and that a para might be warranted. Both pt and appreciated the heads up given to ER. * Telephone Encounter - Bambi Montgomery - 12/12/2023 1130 EDT Nitish called asking to speak with Stefani regarding patient. Refused any other information. Stated Stefani would know why he is calling. Thank You documented in this encounter Plan of Treatment Upcoming Encounters Date Type Department Care Team (Late st Contact Info) Description 04/02/2024 10:30 EDT Appointment [facility] Interventional Radiology Unit [address] [place] [address] [phone] 04/02/2024 15:15 EDT Office Visit [facility] Surgical Oncology - [address] [id number] Adolfo Carreno MD [address] [place] [phone] 04/05/2024 9:30 EDT Telemedicine [facility] - [facility] [address] [place] [address] [phone] Chichi Woods MD [address] [place] [address], [address] [phone] 04/11/2024 15:00 EDT Telemedicine [facility] Hematology & Oncology - [address] [phone] Alisson Carreon MD [address] [place] [address] 2 [place] [phone] 04/13/2024 13:30 EDT Appointment [facility] Hematology & Oncology [address] [phone] 04/13/2024 14:00 EDT Appointment [facility] Hematology & Oncology [address] [address] 04/16/2024 10:00 EST Telemedicine [facility] - [facility] [address] [place] [address] [phone] Chichi Woods MD [address] [place] [address], [address] [phone] 04/24/2024 9:00 EST Appointment [facility] Radiology CT Outpatient - [address] [phone] 04/24/2024 11:00 EST Appointment [facility] Breast Imaging - [facility] [address] [id number] 04/27/2024 12:00 EST Appointment [facility] Hematology & Oncology [address] [id number] 05/02/2024 15:00 EST Telemedicine [facility] Hematology & Oncology - [address] [address] Alisson Carreon MD [address] [place] [address], [facility] [address] [place] [phone] 05/04/2024 10:15 EST Ancillary Procedure [facility] Cardiology - [place] [address] 05/04/2024 11:30 EST Appointment [facility] Hematology & Oncology [address] [phone] 05/04/2024 12:00 EST Appointment [facility] Hematology & Oncology - [address] [address] 06/12/2024 13:00 EST [facility]ointment [facility] Radiology [facility] - [address] [address] documented as of this encounter Visit Diagnoses Not on filedocumented in this encounter Care Teams Roll Form Operator Relationship Specialty Start Date End Date Linda Blancas MD [facility] [address] [place] [address] PCP - General 01/06/11 Adolfo Carreno MD [address] [place] [address], [facility] [address] [place] [phone] General Surgery 04/26/19 Augustina Colin MD PhD [address] [place] [address] 2 [place] [phone] Medical Oncology 04/26/19 documented as of this encounter
--- OUTSIDE RECORDS SUMMARY | 2024-03-20 14:38 | XMS_ITS | Encounter Summary ---
Author Organization [facility] Address [address] [place] [address] Care Team Providers Care Auto Damage Estimator Name Role Phone Linda Blancas MD Primary Care Provider [phone] Adolfo Carreno MD Unavailable [phone] Augustina Colin MD PhD Unavailable Unavailable Encounter Details Date Type Department Care Team (Late st Contact Info) Description 12/09/2023 8:45 EDT - 12/09/2023 10:05 EDT Surgery [facility] OR [address] [place] [address] [phone] Nash Beard MD [address] [place] [address], [address] [place] [phone] Flexible bronchoscopy [17221 (CPT??)] Surgery Details Date/Time Status Location OR Service Patient Class Case Cl ass Case Type Trauma Case? 12/09/23 0845 Posted [facility] OR [facility] Outpatient Surgery H - Elective Panel 1 Procedure LRB Anes Op Region Wound Class Comments Flexible bronchoscopy N/A Nurse Mode rate Sedation Chest Class II/ Clean Contaminated Surgeon Surgeon Role Service Panel Ori Hanna MBBS Fellow Pulmonary 1 Nash Beard MD Primary Pulmonary 1 Special Needs IV [...] Sign Reading Time Taken Comments Blood Pressure 138/56 12/09/2023 0721 EDT Pulse - - Temperature 36.7 ??C (98.1 ??F) 12/09/2023 0721 EDT Respiratory Rate - - Oxygen Saturation 99% 12/09/2023 0721 EDT Inhaled Oxygen Concentration - - Weight 55 kg (121 lb 4.1 oz) 12/09/2023 0751 EDT Height 154.9 cm (5' 1) 12/09/2023 0751 EDT Body Mass Index 22.91 12/09/2023 0751 EDT documented in this encounter Functional Status [...] No 03/24/2018 documented as of this encounter Discharge Instructions * Discharge Instructions* Ori Hanna MBBS - 12/09/2023 10:28 EDT Bronchoscopy Post-Operative Patient Instructions Diet: Before you leave the hospital, the nurse will make certain that the numbing medication applied to your throat has worn off and that your swallowing is back to normal. Once you go home, you can eat your standard diet with no restrictions unless advised by your physician. Discomfort: You may have a slight sore throat and some hoarseness and soreness in your nose that may last a dayor two. If washing of your lung(s) was performed, you may have a sensation of fullness in your chest. Cough: It is not unusual for you to have a cough after the procedure. If biopsies or other samples were obtained from your lung(s), you may cough up some phlegm with streaks of blood in it. This is not unusual. Fever: If washing of your lung(s) was performed, you may have a fever that night after the procedure. You can take Tylenol for this. Contact your physician if this persists or is associated with other symptoms. Nausea: There may be some nausea due to the medication given before the procedure. Activity: Have someone else drive you home. Do not operate a vehicle until tomorrow. FOR QUESTIONS OR PROBLEMS, if one of the following problems develops: Fever higher than 100.6?? F Increasing shortness of breath Coughing up more than a teaspoon of blood at a time Significant chest pain or discomfort documented in this encounter Medications at Time of Discharge Medication Sig Dispensed Refills Start Date End Date calcium-vitamin D (OS-CHRA D) 500 mg(1,250mg) -200 unit per tablet [...] times daily. 60 Tablet 11 12/07/2023 03/13/2024 dexAMETHasone (DECADRON) 4 mg tabletIndications:Prim hugo malignant neoplasm of breast with metastasis (HCC-CMS) Take 2 Tablets by mouth daily. Take on days 2 and 3 after chemotherapy. 12 Tablet 5 10/17/2023 12/20/2023 furosemide (LASIX) 20 mg tablet Take 1 Tablet by mouth daily. 30 Tablet 1 11/30/2023 01/26/2024 gabapentin (NEURONTIN) 100 mg capsule Take 2 Caps by mouth 2 times daily. 360 Cap 3 08/16/2012 12/14/2023 gabapentin (NEURONTIN) 600 mg tablet Take 1 Tablet by mouth every evening. 12/14/2023 mv-mn/C/glutamin/lysin /[id number] (AIRBORNE, ASCORBATE SODIUM, ORAL) Take by mouth as needed. 12/14/2023 prasterone, dhea, (INTRAROSA) 6.[address] 6.5 mg vaginally daily. 28 Each 4 07/30/2022 12/14/2023 predniSONE (DELTASONE) 10 mg tabletIndications:Prim hugo malignant neoplasm of breast with metastasis (HCC-CMS) Take 1 Tablet by mouth daily with breakfast. 30 Tablet 11/16/2023 12/20/2023 prochlorperazine (COMPAZINE) 10 mg tabletIndications:Prim hugo malignant neoplasm of breast with metastasis (HCC-CMS) Take 1 Tablet by mouth every 6 hours as needed for Nausea. 30 Tablet 5 10/17/2023 02/15/2024 spironolactone (ALDACTONE) 50 mg tablet Take 1 Tablet by mouth daily. 30 Tablet 1 11/30/2023 01/19/2024 venlafaxine (EFFEXOR-XR) 150 mg XR capsule Take 1 Cap by mouth daily. 90 Cap 3 08/16/2012 12/14/2023 documented as of this encounter Discharge Disposition Disposition Code Departure Means Destination Comment s Home or Self Care Wheelchair Home documented in this encounter H&P Notes * Nash Beard MD - 12/09/2023 0842 EDT The preoperative history and physical which was performed within 30 days of this procedure has been reviewed and the clinically appropriate elements of the physical examination have been repeated. There are no changes to the documented history and physical or if so such changes are documented below KACY WILLINGHAM 12/09/2023 8:42 General appearance: alert, cooperative, cachectic Head: Normocephalic, without obvious abnormality, atraumatic Lungs: clear to auscultation bilaterally Heart: regular rate and rhythm, S1, S2 normal, no murmur, click, rub or gallop Abdomen: normal findings: bowel sounds normal, soft, non-tender Mental Status: awake and alert; oriented to person, place, and time Attestation statement: I saw and examined the patient with the resident/fellow. I agree with the findings and plan of care documented in the resident's/fellow's note. Nash Beard MD Division of Pulmonary and Critical Care Medicine [facility] Nash Beard MD 12/09/2023 9:31 Source Note - Jackie Leach DO - 11/23/2023 9:00 EDT PULMONARY CLINIC NEW PATIENT VISIT 11/23/2023 REASON FOR CONSULT: Pt w/ persistant cough and subsequent difficulty breathing REQUESTING PROVIDER: Augustina Colin MD PhD PCP: Linda Blancas SUBJECTIVE: Sunshine Pleitez is a 63 y.o. female with a past medical history of metastatic breast cancer with hepatic lesions and ascites, GERD, premature ovarian failure who presents for evaluation of chronic cough. In August of this year patient started developing a chronic cough in conjunction with abdominal distention, early satiety, and significant heartburn. She has also had fatigue and dyspnea on exertion. She was diagnosed with presumed metastatic disease of the liver with ascites and underwent a paracentesis with 1800 mL of fluid removed, however albumin was not sent so etiology was unclear, although cytopathology was negative for malignancy. She notes that the procedure alleviated some of her shortness of breath but worsened again as her abdomen became more distended. Patient reports that her cough is never ending and occurs all day, night, and especially with changing body positions. She has difficulty talking without coughing. She has some associated fatigue and her new oncologist has placed her on prednisone 10 mg daily earlier this week with improvement inher energy but not any significant relief with her cough. In regards to her GERD, she reports that she occasionally regurgitates liquids or pills at least once a week. This is new since August. She saw gastroenterology here and her omeprazole was increased from 20 to 40 mg daily with some improvement in her heartburn. She had also been dealing with some constipation and skin changes related to Orserdu and her CA 27-29 level increased so she was switched to Enhertu with relief of constipation. Notably during the ED visit with paracentesis on 11/09/2023 she was diagnosed with segmental PEs andleft upper extremity thrombosis and started on apixaban. After her ascites was drained she noticed increasing edema in her feet and labia. She also had 1 episode of an irregular heartbeat that lasts about 5 seconds, notably with exertion and after the diagnosis of PE. Her notes concern that she had severe COVID in 2019 and was admitted for 10 days at [facility], although patient reports that she felt full recovery after this episode. Patient reports that she was diagnosed with asthma in 2016 after an episode of bronchitis but was not on any inhalers and had no testing. She has allergies to pollen and cats. PMHx: has Papanicolaou smear of cervix with low grade squamous intraepithelial lesion (LGSIL); Premature ovarian failure; Herpes simplex type 2 infection; Menopausal and postmenopausal disorder; Encounter for routine gynecological examination; Lumbar radicular syndrome; Acquired spondylolisthesis; Lumbosacral spondylosis without myelopathy; Acquired absence of breast and nipple; Personal history of malignant neoplasm of breast; Plantar fasciitis of left foot; Unstable right ankle; Hallux rigidus of right foot; Trigger thumb of left hand; Plantar fat pad atrophy; Breast lump; Primary malignantneoplasm of breast with metastasis (HCC-CMS); Malignant neoplasm of female breast (HCC-CMS); Encounter for palliative care; Osteopenia; S/P breast reconstruction, right; Lipoma of back; Retinal tear of left eye; PVD (posterior vitreous detachment), both eyes; Bilateral retinal lattice degeneration;Dry eye syndrome of both eyes; Epiretinal membrane (ERM) of left eye; and Acute pulmonary embolism without acute cor pulmonale (HCC-CMS) on their problem list. PSHx: has a past surgical history that includes Carpal tunnel release (2007); lipoma resection (2000); Breast surgery (01/30/2004); Breast reconstruction (01/30/2004); Breast surgery (08/2018); Breast reconstruction (05/2018); pr insj/rplcmt breast implant feb day mastectomy (Bilateral, 05/30/2019); M astectomy (Right); back surgery (December 2011); and Foot surgery (05/2021). MEDICATIONS: Current Outpatient Medications: apixaban (ELIQUIS) 5 mg tablet, Take 2 Tablets by mouth 2 times daily for 7 days, THEN 1 Tablet 2 times daily for 23 days., Disp: 74 Tablet, Rfl: 0 calcium-vitamin D (OS-CHAR D) 500 mg(1,250mg) -200 unit per tablet, Take 1 Tablet by mouth 2 times daily with breakfast and dinner., Disp: , Rfl: dexAMETHasone (DECADRON) 4 mg tablet, Take 2 Tablets by mouth daily. Take on days 2 and 3 after chemotherapy., Disp: 12 Tablet, Rfl: 5 gabapentin (NEURONTIN) 100 mg capsule, Take 2 Caps by mouth 2 times daily. (Patient taking differently: Take 3 Capsules by mouth 2 times daily. And 600 mg at night), Disp: 360 Cap, Rfl: 3 gabapentin (NEURONTIN) 600 mg tablet, Take 1 Tablet by mouth every evening., Disp: , Rfl: ibuprofen (MOTRIN) 200 mg tablet, Take 2 Tablets by mouth as needed., Disp: , Rfl: MULTIVITS W-CA,FE,OTHER MIN (WOMEN'S DAILY FORMULA ORAL), Take by mouth daily., Disp: , Rfl: mv-mn/C/glutamin/lysin/[id number] (AIRBORNE, ASCORBATE SODIUM, ORAL), Take by mouth as needed. (Patient not taking: Reported on 11/03/2023), Disp: , Rfl: OMEPRAZOLE ORAL, Take 40 mg by mouth 2 times daily., Disp: , Rfl: prasterone, dhea, (INTRAROSA) 6.5 mg insert, Place 6.5 mg vaginally daily. (Patient not taking: Reported on 06/16/2023), Disp: 28 Each, Rfl: 4 predniSONE (DELTASONE) 10 mg tablet, Take 1 Tablet by mouth daily with breakfast., Disp: 30 Tablet,Rfl: 0 prochlorperazine (COMPAZINE) 10 mg tablet, Take 1 Tablet by mouth every 6 hours as needed for Nausea., Disp: 30 Tablet, Rfl: 5 RED YEAST RICE EXTRACT ORAL, Take 1,200 mg by mouth daily. 600mg 2x a day, Disp: , Rfl: valACYclovir (VALTREX) 500 mg tablet, Take 1 Tab by mouth daily., Disp: 90 Tab, Rfl: 3 venlafaxine (EFFEXOR-XR) 150 mg XR capsule, Take 1 Cap by mouth daily., Disp: 90 Cap, Rfl: 3 ALLERGIES: Allergies Allergen Reactions Amoxicillin Other (See Comments) and Rash Red rash Sulfa (Sulfonamide Antibiotics) Hives Light lavender rash Sulfamethoxazole-Trimethoprim Rash FAMILY Hx: family history includes Breast Cancer (age of onset: 35) in her paternal aunt; Cancer inher father and maternal uncle; Cancer (age of onset: 35) in her paternal aunt; Cancer (age of onset: 59) in her brother; Liver Disease in her brother; Stroke in her brother and mother. SOCIAL Hx: Living: [place] in single family home built in 1960s Mold/mildew: None Heat: Forced hot air and heat pump, wood stove - does not bother Pets: 1 dog - 3 years old Occupation: [employer] stopped working 6 years ago - was exposed to mold in basement Hobbies: Enjoys gardening Tobacco: reports that she has never smoked. She has never used smokeless tobacco. EtOH: reports current alcohol use of about 2.0 standard drinks of alcohol per week. Illicit Drug Use: reports no history of drug use. EXAM: BP 140/63 (BP Cuff Location: Left arm, BP Patient Position: Sitting, BP Cuff Sizes: Adult, regular) Pulse 85 Temp 36.6 ??C (97.9 ??F) (Tympanic) Resp 16 Ht 154.8 cm (60.95) Wt 62.6 kg (138 lb 0.1 oz) SpO2 98% BMI 26.12 kg/m?? Gen: Middle-aged female appearing stated age, NAD, sitting in chair Head: Normocephalic, atraumatic Eyes: Conjunctivae clear Throat: Oropharynx with cobblestoning without erythema or exudates Neck: Supple, trachea midline Lymph: No submandibular or supraclavicular lymphadenopathy CV: Regular, S1, S2, no murmurs Lungs: Symmetric chest expansion. Clear to auscultation bilaterally. No rales, rhonchi, or wheezing Abd: Soft, distended, normoactive bowel sounds, non-tender, fluid wave present Ext: 2+ pitting edema with compression stockings; no clubbing or cyanosis Skin: Warm and dry Psych: Normal mood and affect IMAGING: Personally reviewed by me with patient at this visit. CT Angio Chest PE Protocol 11/09/2023 IMPRESSION 1. Acute pulmonary emboli involving bilateral subsegmental branches as above. No evidence of right heart strain. 2. Interval enlargement of a left internal mammary lymph node and multiple left axillary and subpectoral lymph nodes, which could be reactive though which may also represent recurrent malignancy. Attention on follow-up is advised. CT CHEST W CONTRAST 10/03/2023 IMPRESSION 1. Slight decrease in size of an enlarged right internal thoracic lymph node, a few nodules in the right upper lobe and stable size of a dominant nodule within the left upper lobe. 2. Multiple known bilateral rib fractures in different stages of healing, some of which are known to be pathologic. Spirometry: Date FEV1/FVC LLN FEV1 (L) % LLN (L) FVC (L) % LLN (L) Comments 11/23/2023 80 68 1.91 92 1.47 2.35 92 1.86 No sig BD change ASSESSMENT: Sunshine Pleitez is a 63 y.o. female with a past medical history of metastatic breast cancer with hepatic lesions and ascites, GERD who is being evaluated for chronic cough. Given the absence of abnormality on CT outside of stable lung nodules that are presumed to be metastatic disease, and normal spirometry today, and by evaluation of history obtained from the patient today I think it is most likely that her chronic cough is from GERD and increased intra- abdominal pressure from ascites. I would like to obtain a bronchoscopy and airway exam given her malignancy however she was just diagnosed with a pulmonary embolism on 11/09/2023 so we will wait about a month out from this. We will not hold her apixaban but we will plan to perform the bronchoscopy through her mouth. Should there be any endobronchial lesions she will need biopsies with interventional pulmonology. In the meantime I would like her to increase her omeprazole to 40 mg twice daily. I have also instructed her to eat smaller, more frequent meals, avoid trigger foods, go to bed on an empty stomach, and consider elevation of the head of the bed. If there is no improvement with these maneuvers after 2 weeks then we will consider addition of famotidine. She is currently on prednisone for fatigue and if this does not significantly help with her cough then I do not think that adding an inhaler would be beneficial. PLAN: 1. Chronic cough - Likely from GERD - Bronchoscopy for airway exam - No BAL or biopsies - Remain on apixiban with oral approach 2. Gastroesophageal reflux disease, unspecified whether esophagitis present - omeprazole (PRILOSEC) 40 mg capsule; Take 1 Capsule by mouth 2 times daily. Dispense: 60 Capsule;Refill: 11 - Lifestyle modifications - Can add famotidine if no improvement Follow-up TBD. I spent a total of 80 minutes on the date of this encounter meeting with the patient and reviewing documentation/coordinating care as described in the above note. This was separate from any procedures performed at the time of the visit. Jackie Leach DO Pulmonary and Critical Care Medicine Attending documented in this encounter Plan of Treatment Upcoming Encounters Date Type Department Care Team (Late st Contact Info) Description 04/02/2024 10:30 EDT Appointment [facility] Interventional Radiology Unit [address] [place] [address] [phone] 04/02/2024 15:15 EDT Office Visit [facility] Surgical Oncology - [address] [phone] Adolfo Carreno MD [address] [facility], [address] [place] [phone] 04/05/2024 9:30 EDT Telemedicine [facility] - [facility] Palliative Care Services [address] [place] [address] [phone] Chichi Woods MD [address] [place] [address] [address] [place] [phone] 04/11/2024 15:00 EDT Telemedicine [facility] Hematology & Oncology - [address] [phone] Alisson Carreon MD [address] [place] [address], [address] [place] [phone] 04/13/2024 13:30 EDT Appointment [facility] Hematology & Oncology [address] [id number] 04/13/2024 14:00 EDT Appointment [facility] Hematology & Oncology [address] [id number] 04/16/2024 10:00 EST Telemedicine [facility] Pall[facility] Services [address] [place] [address] [id number] Chichi Woods MD [address] [place] [phone] 04/24/2024 9:00 EST Appointment [facility] Radiology CT Outpatient - [address] [id number] 04/24/2024 11:00 EST Appointment [facility] Breast Imaging - [address] [phone] 04/27/2024 12:00 EST Appointment [facility] Hematology & Oncology - [address] [id number] 05/02/2024 15:00 EST Telemedicine [facility] Hematology & Oncology - [address] [phone] Alisson Carreon MD [address] [facility], [address] [place] [phone] 05/04/2024 10:15 EST Ancillary Procedure [facility] Cardiology - [address] [place] [address] 05/04/2024 11:30 EST Appointment [facility] Hematology & Oncology - [address] [phone] 05/04/2024 12:00 EST Appointment [facility] Hematology & Oncology - [address] [id number] 06/12/2024 13:00 EST Appointment [facility] Radiology CT - [address] [id number] documented as of this encounter Procedures Procedure Name Priority Date/Time Associated Diagnosis Comments ADULT BRONCHOSCOPY PROCEDURE Routine 12/12/2023 21:31 EDT COMPREHENSIVE METABOLIC PANEL (CMP) Routine 12/09/2023 9:55 EDT Other ascites BRONCHOSCOPY 12/09/2023 9:47 EDT Chronic cough Gastroesophageal reflux disease, unspecified whether esophagitis present Special Needs IV Sedation documented in this encounter Results * ADULT BRONCHOSCOPY PROCEDURE (12/12/2023 21:31 EDT) Narrative [facility] - 12/12/2023 21:31 EDT Procedure Performed Flexible bronchoscopy Indications for Exam Chronic cough Procedure Technique A physical exam was performed. Informed consent was obtained from the patient after explaining all the risks (including pneumothorax, bleeding, infection, adverse effects due to medications, respiratory failure), benefits and alternatives to the procedure which the patient appeared to understand and so stated. The patient was connected to the monitoring devices. ??On arrival at the procedure room, a standard 2-part timeout was performed. ??After administration of anesthesia, a LMA was placed by anesthesiology. ??The small adult flexible bronchoscope was advanced through the LMA and into the airway. Arytenoids and aryepligottic folds appeared normal. Some mucus present around the vocal cords. Vocal cords appeared normal. Trachea with slightly erythematous mucosa. Some mucoid secretions present in the airways that were easily suctioned. All airways on the right side appeared patent and open. There appeared to be some narrowing of the BELKIS, however no endobronchial lesions noted. The remaining airways and segments on the left side appeared open and patent. Residual mucus was easily suctioned. The bronchoscope was removed and case terminated. Patient was extubated and transferred to PACU. Medications see Anesthesia MAR Estimated Blood Loss - None Findings -Mucoid secretions in the trachea and airways -No endobronchial lesions -No bleeding Procedure Diagnosis see indications Recommendations Follow up with Dr Leach Specimen(s) removed - None This electronic signature authenticates all electronic and/or handwritten documentation, including orders, generated by the signer during the episode of care contained in this record. 12/12/2023 09:31:38 PM By Nash Beard Nash Beard MD PFT ORDERABLES [facility] * (ABNORMAL) COMPREHENSIVE METABOLIC PANEL (CMP) (12/09/2023 9:55 EDT) Sodium 133(L) 136 - 145 mmol/L 12/09/2023 10:44 [facility] Potassium 3.7 3.5 - 5.0 mmol/L 12/09/2023 10:44 [facility] Chloride 104 96 - 110 mmol/L 12/09/2023 10:44 [facility] CO2 Total 24 22 - 32 mmol/L 12/09/2023 10:44 [facility] Glucose 112(H) 70 - 99 mg/dl 12/09/2023 10:44 [facility] BUN 24 10 - 26 mg/dL 12/09/2023 10:44 [facility] Creatinine 0.61 0.52 - 1.04 mg/dL 12/09/2023 10:44 [facility] eGFR 101 >60 mL/min/1.7 3m2 12/09/2023 10:44 [facility] Total Protein 5.2(L) 6.3 - 8.2 g/dL 12/09/2023 10:44 T [facility] Albumin 2.7(L) 3.4 - 4.9 g/dL 12/09/2023 10:44 [facility] Alkaline Phosphatase 308(H) 38 - 126 U/L 12/09/2023 10:44 [facility] AST 46 15 - 46 U/L 12/09/2023 10:44 T [facility] ALT 37(H) <35 U/L 12/09/2023 10:44 T [facility] Bilirubin, Total 1.9(H) <1.4 mg/dL 12/09/19 10:44 T [facility] Calcium 8.0(L) 8.5 - 10.5 mg/dL 12/09/2023 10:44 [facility] Albumin/Globulin Ratio 1.1 1.0 - 2.5 12/09/2023 10:44 [facility] Anion Gap 5 5 - 14 mmol/L 12/09/2023 10:44 [facility] Blood VENOUS BLOOD / Unknown Venipuncture / Unknown 12/09/2023 9:55 EDT 12/09/2023 10:13 EDT Hugo Vergara MD PhD CHEMISTRY & BLO OD GAS ORDERABLES [facility] [address] [place] [address] documented in this encounter Visit Diagnoses Diagnosis Other ascites Chronic cough Cough Gastroesophageal reflux disease Esophageal reflux Chronic cough Cough Gastroesophageal reflux disease, unspecified whether esophagitis present documented in this encounter Admitting Diagnoses Diagnosis Chronic cough Cough Gastroesophageal reflux disease Esophageal reflux documented in this encounter Administered Medications Inactive Administered Medications - up to 3 most recent administrations Medication Order MAR Action Action Date Dose Rate Site sodium chloride 0.9 % (NS) infusion 25 mL/hr, intravenous, CONTINUOUS, Starting on Tue12/09/23 at 0815, Until Tue12/09/23 at 1338, Routine, Preprocedure Restarted 12/09/2023 10:30 EDT Continued by Anesthesia 12/09/2023 9:57 EDT 25 mL/hr New Bag 12/09/2023 9:56 EDT 25 mL/hr 25 mL/hr documented in this encounter Historical Medications * This list may reflect changes made after this encounter. Medication Sig Dispensed Refills Start Date End Date cholecalciferol, Vitamin D3, 25 mcg (1,000 unit) tablet Take 1 Tablet by mouth daily. added in this encounter Active and Recently Administered Medications Times are shown in EDT. Continuous Medication Order 12/07/2023 12/08/2023 12/09/2023 sodium chloride 0.9 % (NS) infusion 25 mL/hr, intravenous, CONTINUOUS, Starting on Tue12/09/23 at 0815, Until Tue12/09/23 at 1338, Routine, Preprocedure 0956 (New Bag - Prov ider: Sandhya Sal RN)0957 (Continued by Anesthesia - Provider: Kaylah Wise)1029 (Paused - Provider: Kaylah Wise - Comment: Switch to gravity)1030 (Restarted - Provider: Kaylah Wise) documented in this encounter Orders Medications Ordered That Vj ht Not Have Been Administered Count Last Ordered Date First Ordered Date lidocaine (PF) 10 mg/mL (1 % ) injection 2 mg 1 12/09/2023 Discharge Count Last Ordered Date First Orde red Date DISCHARGE PATIENT 1 12/09/2023 documented in this encounter Care Teams Auto Damage Estimator Relationship Specialty Start Date End Date Linda Blancas MD [address] [place] [address] PCP - General 01/06/11 Adolfo Carreno MD [address] [place] [address] [phone] General Surgery 04/26/19 Augustina Colin MD PhD [address] [place] [phone] Medical Oncology 04/26/19 documented as of this encounter
--- OUTSIDE RECORDS SUMMARY | 2024-03-20 14:38 | XMS_ITS | Encounter Summary ---
Author Organization [facility] Address [address] [place] [address] Care Team Providers Care Control Panel Assembler Name Role Phone Linda Blancas MD Primary Care Provider [phone] Adolfo Carreno MD Unavailable [phone] Augustina Colin MD PhD Unavailable Unavailable Reason for Visit * Reason Onset Date Comments Labs Only 11/29/2023 Encounter Details Date Type Department Care Team (Late st Contact Info) Description 11/29/2023 Telephone [facility] Hematology & Oncology - [address] [phone] Alisson Carreon MD 111 [facility], Level 2 [place] [phone] Labs Only Social History Tobacco Use Types Packs/Day Years [...] Encounter - Ana Laura Winn RN - 11/29/2023 1001 EDT Returned Bambi in labs call regarding labs. Pt went to IR and had fluid sent for testing, and appears that albumin blood draw got added on by mistake. Wanted to clarify that pt was getting labs drawn and that the error would not effect her draw today. * Telephone Encounter - Kaylah Nesbitt - 11/29/2023 0953 EDT [facility] Incoming Call Labs Request/Results Reason for call: Bambi from [facility] Lab is calling to report that fluid was collected in IR and set to the lab with an albumin label for blood draw, which was likely received by accident. She is concerned that it looks as though the draw is in process because she has the label, but she does not havethe blood draw. She needs to know if Hem/Onc is intending to draw for the patient today or if she will be sent to phlebotomy, in which case they will need a new order. Please call back as soon as possible. Next Appointment: 12/20/2023 Last Office Visit: 11/29/2023 Alisson Carreon MD Last Telehealth Encounter: 09/22/2023 Nadeen Blood PA-C Sarah West 11/29/2023 9:53 documented in this encounter Plan of Treatment Upcoming Encounters Date Type Department Care Team (Late st Contact Info) Description 04/02/2024 10:[address] [facility] Interventional Radiology Unit [address] [place] [address] [phone] 04/02/2024 15:[address] [facility] Surgical Oncology - [address] [phone] Adolfo Carreno MD [address] [place] [address] [phone] 04/05/2024 9:30 EDT Telemedicine [facility] Palliative Care Services [address] [place] [address] [phone] Chichi Woods MD [address] [place] [address] [phone] 04/11/2024 15:00 EDT Telemedicine [facility] Hematology & Oncology - [address] [phone] Alisson Carreon MD [address] [place] [address] [phone] 04/13/2024 13:30 EDT Appointment [facility] Hematology & Oncology [address] [phone] 04/13/2024 14:00 EDT Appointment [facility] Hematology & Oncology [address] [phone] 04/16/2024 10:00 EST Telemedicine [facility] Palliative Care Services [address] [place] [address] [phone] Chichi Woods MD [address] [place] [address] [phone] 04/24/2024 9:00 EST Appointment [facility] Radiology CT Outpatient - [address] [phone] 04/24/2024 11:[address] [facility] Breast Imaging - [facility] [address] [place], [place] 222511 04/27/2024 12:00 EST Appointment [facility] Hematology & Oncology - [address] [address] 05/02/2024 15:00 EST Telemedicine [facility] Hematology & Oncology - [address] 335191 Alisson Carreon MD [address] [place] [address], Level 2 [place] [phone] 05/04/2024 10:[address] [facility] Cardiology - [address] [place] [address] 05/04/2024 11:30 EST Appointment [facility] Hematology & Oncology - [address] [address] 05/04/2024 12:00 EST Appointment [facility] Hematology & Oncology - [address] 026781 06/12/2024 13:00 EST Appointment [facility] Radiology CT - [address] [phone] documented as of this encounter Visit Diagnoses Not on filedocumented in this encounter Care Teams Control Panel Assembler Relationship Specialty Start Date End Date Linda Blancas MD [address] [place] [address] PCP - General 01/06/11 Adolfo Carreno MD 111 [facility] 2 [place] [phone] General Surgery 04/26/19 Augustina Colin MD PhD [address] [phone] Medical Oncology 04/26/19 documented as of this encounter
--- OUTSIDE RECORDS SUMMARY | 2024-03-20 14:38 | XMS_ITS | Encounter Summary ---
Author Organization [facility] Address [address] [place] [address] Care Team Providers Care Car Installations Supervisor Name Role Phone Linda Blancas MD Primary Care Provider [phone] Adolfo Carreno MD Unavailable [phone] Augustina Colin MD PhD Unavailable Unavailable Encounter Details Date Type Department Care Team (Latest Contact Info) Description 12/12/2023 Travel Social History Tobacco Use Types Packs/Day Years Used Date Smoking Tobacco: Never Passive Smoke Exposure: Never Smokeless Tobacco: Never Alcohol Use Standard Drinks/Week Comments Not Currently 1 (1 standard drink = 0.6 oz pur e alcohol) [facility] Utilities Answer Date Recorded In [...] No 03/24/2018 documented as of this encounter Plan of Treatment Upcoming Encounters Date Type Department Care Team (Late st Contact Info) Description 04/02/2024 10:30 EDT Appointment [facility] Interventional Radiology Unit [address] [place] [phone] 04/02/2024 15:15 EDT Office Visit [facility] Surgical Oncology - [facility] [address] [place], [place] [phone] Adolfo Carreno MD 111 [facility], Level 2 [place] [phone] 04/05/2024 9:30 EDT Telemedicine [facility] Palliative Care Services [address] [place] [address] [phone] Chichi Woods MD [address] [place] [address] [phone] 04/11/2024 15:00 EDT Telemedicine [facility] Hematology & Oncology - [address] 675361 Alisson Carreon MD [address] [place] [address] 2 [place] [phone] 04/13/2024 13:30 EDT Appointment [facility] Hematology & Oncology - [address] [phone] 04/13/2024 14:00 EDT Appointment [facility] Hematology & Oncology [address] [phone] 04/16/2024 10:00 EST Telemedicine [facility] Palliative Care Services [address] [place] [address] [phone] Chichi Woods MD [address] [place] [address] [phone] 04/24/2024 9:00 EST Appointment [facility] Radiology CT Outpatient - [address] [id number] 04/24/2024 11:00 EST Appointment [facility] Breast Imaging - [address] 654201 04/27/2024 12:00 EST Appointment [facility] Hematology & Oncology - [address] [phone] 05/02/2024 15:00 EST Telemedicine [facility] Hematology & Oncology [address] [address] Alisson Carreon MD [address] [place] [address] [phone] 05/04/2024 10:15 EST Ancillary Procedure [facility] Cardiology - [address] [place] [address] 05/04/2024 11:30 EST Appointment [facility] Hematology & Oncology [address] [id number] 05/04/2024 12:00 EST Appointment [facility] Hematology & Oncology [address] [address] 06/12/2024 13:00 EST Appointment [facility] Radiology CT - [address] [phone] documented as of this encounter Visit Diagnoses Not on filedocumented in this encounter Additional Health Concerns Infection Onset Date Last Indicated Resolved Time R/O COVID-19 12/12/2023 12/12/2023 12/12/2023 15:3 5 EDT documented as of this encounter Care Teams Car Installations Supervisor Relationship Specialty Start Date End Date Linda Blancas MD [facility] [address] [place], [place] 8[address] PCP - General 01/06/11 Adolfo Carreno MD [address] [place] [phone] General Surgery 04/26/19 Augustina Colin MD PhD [address] [place] [phone] Medical Oncology 04/26/19 documented as of this encounter
--- OUTSIDE RECORDS SUMMARY | 2024-03-20 14:38 | XMS_ITS | Encounter Summary ---
Author Organization [facility] Address [address] [place] [address] Care Team Providers Care Commercial Internship Name Role Phone Linda Blancas MD Primary Care Provider [phone] Adolfo Carreno MD Unavailable Augustina Colin MD PhD Unavailable Unavailable Encounter Details Date Type Department Care Team (Late st Contact Info) Description 12/06/2023 Orders Only [facility] Hematology & Oncology - [address] 699491 Alisson Carreon MD [address] [place] [address], Level 2 [place] [phone] Social History Tobacco Use Types [...] No 03/24/2018 documented as of this encounter Progress Notes * Alisson Carreon MD - 12/06/2023 1649 EDT 11/29/23 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%) documented in this encounter Plan of Treatment Upcoming Encounters Date Type Department Care Team (Late st Contact Info) Description 04/02/2024 10:30 EDT Appointment [facility] Interventional Radiology Unit [address] [place] [address] [phone] 04/02/2024 15:15 EDT Office Visit [facility] Surgical Oncology - [address] [phone] Adolfo Carreno MD 111 [facility], [facility] 2 [place] [phone] 04/05/2024 9:30 EDT Telemedicine [facility] - [facility] Palliative Care Services [address] [place], [place] [phone] Chichi Woods MD 111 [facility], [address] [phone] 04/11/2024 15:00 EDT Telemedicine [facility] Hematology & Oncology - [facility] [address] [place], [place] [phone] Alisson Carreon MD [address] [place] [address], [facility] 2 [place] [phone] 04/13/2024 13:30 EDT Appointment [facility] Hematology & Oncology - [address] [phone] 04/13/2024 14:00 EDT Appointment [facility] Hematology & Oncology - [address] [phone] 04/16/2024 10:00 EST Telemedicine [facility] - [facility] Palliative Care Services [address] [place] [address] [phone] Chichi Woods MD [address] [place] [address] [phone] 04/24/2024 9:00 EST Appointment [facility] Radiology CT Outpatient - [address] 074801 04/24/2024 11:00 EST Appointment [facility] Breast Imaging - [facility] S [address] 134491 04/27/2024 12:00 EST Appointment [facility] Hematology & Oncology - [address] [phone] 05/02/2024 15:00 EST Telemedicine [facility] Hematology & Oncology - [address] [phone] Alisson Carreon MD [address] [place] [address], [facility] 2 [place] [phone] 05/04/2024 10:15 EST Ancillary Procedure [facility] Cardiology - [address] [place], [place] [phone] 05/04/2024 11:30 EST Appointment [facility] Hematology & Oncology - [address] [address] 05/04/2024 12:00 EST Appointment [facility] Hematology & Oncology - [address] [address] 06/12/2024 13:00 EST Appointment [facility] Radiology CT - [address] 475211 documented as of this encounter Visit Diagnoses Not on filedocumented in this encounter Care Teams Commercial Internship Relationship Specialty Start Date End Date Linda Blancas MD [facility] [address] [place] [address] PCP - General 01/06/11 Adolfo Carreno MD [address] [place] [address] [phone] General Surgery 04/26/19 Augustina Colin MD PhD [address] [place] [phone] Medical Oncology 04/26/19 documented as of this encounter
--- OUTSIDE RECORDS SUMMARY | 2024-03-20 14:38 | XMS_ITS | Encounter Summary ---
Author Organization [facility] Address [address] [place] [address] Care Team Providers Care Collection Clerk Name Role Phone Linda Blancas MD Primary Care Provider [phone] Adolfo Carreno MD Unavailable [phone] Augustina Colin MD PhD Unavailable Unavailable Encounter Details Date Type Department Care Team (Late st Contact Info) Description 12/12/2023 Orders Only [facility] Hematology & Oncology - [facility] [address] [place], [place] 752[address] Lois Bautista RN Malignant neoplasm of right female breast, unspecified estrogen receptor status, unspecified site of breast (HCC-CMS) (Primary Dx) Social History Tobacco Use Types Packs/Day Years Used Date Smoking Tobacco: Never Passive Smoke Exposure: Never Smokeless Tobacco: Never Alcohol Use Standard Drinks/Week Comments Not Currently 1 (1 standard drink = 0.6 oz pur e alcohol) [facility] Utilities Answer Date Recorded In the past 12 months has e [employer], gas, oil, or water [employer] threatened to shut off services in your [...] living in a fci (including now)? No 12/13/2023 Interpersonal Safety Answer [...] Progress Notes * Lois Bautista RN - 12/12/2023 0919 EDT Future orders released for scheduling. documented in this encounter Plan of Treatment Upcoming Encounters Date Type Department Care Team (Late st Contact Info) Description 04/02/2024 10:30 EDT Appointment [facility] Interventional Radiology Unit [address] [place] [address] [phone] 04/02/2024 15:15 EDT Office Visit [facility] Surgical Oncology - [address] [phone] Adolfo Carreno MD [address] [place] [address] [phone] 04/05/2024 9:30 EDT Telemedicine [facility] Palliative Care Services [address] [place] [address] [phone] Chichi Woods MD [address] [place] [address] [phone] 04/11/2024 15:00 EDT Telemedicine [facility] Hematology & Oncology - [address] [phone] Alisson Carreon MD [address] [place] [address] [phone] 04/13/2024 13:30 EDT Appointment [facility] Hematology & Oncology [address] [phone] 04/13/2024 14:00 EDT Appointment [facility] Hematology & Oncology [address] [phone] 04/16/2024 10:00 EST Telemedicine [facility] Palliative Care Services [address] [place] [address] [phone] Chichi Woods MD [address] [place] [address] [phone] 04/24/2024 9:00 EST Appointment [facility] Radiology CT Outpatient - [address] 172591 04/24/2024 11:00 EST Appointment [facility] Breast Imaging - [facility] [address] [place], [place] 636651 04/27/2024 12:00 EST Appointment [facility] Hematology & Oncology - [address] [address] 05/02/2024 15:00 EST Telemedicine [facility] Hematology & Oncology [address] 002631 Alisson Carreon MD [address] [place] [address], Level 2 [place] [phone] 05/04/2024 10:15 EST Ancillary Procedure [facility] Cardiology - [address] [place] [address] 05/04/2024 11:30 EST Appointment [facility] Hematology & Oncology - [address] [address] 05/04/2024 12:00 EST Appointment [facility] Hematology & Oncology - [address] [phone] 06/12/2024 13:00 EST Appointment [facility] Radiology CT - [address] 674341 documented as of this encounter Visit Diagnoses Diagnosis Malignant neoplasm of right female breast, unspecified estrogen receptor status, unspecified site of breast ([facility])- Primary documented in this encounter Care Teams Collection Clerk Relationship Specialty Start Date End Date Linda Blancas MD [facility] [address] [place] [address] PCP - General 01/06/11 Adolfo Carreno MD [address] [place] [address], [facility] 2 [place] [phone] General Surgery 04/26/19 Augustina Colin MD PhD [address] [place] [address] 2 [place] [phone] Medical Oncology 04/26/19 documented as of this encounter
--- OUTSIDE RECORDS SUMMARY | 2024-03-20 14:38 | XMS_ITS | Encounter Summary ---
Author Organization [facility] Address [address] [place] [address] Care Team Providers Care Construction Craft Laborer Name Role Phone Linda Blancas MD Primary Care Provider [phone] Adolfo Carreno MD Unavailable [phone] Augustina Colin MD PhD Unavailable Unavailable Reason for Visit * Reason Onset Date Comments Appointment Related 12/05/2023 Encounter Details Date Type Department Care Team (Late st Contact Info) Description 12/05/2023 Telephone [facility] Center Hematology & Oncology - [address] [phone] Alisson Carreon MD 111 [facility], Level 2 [place] [phone] Appointment Related Social History Tobacco [...] * Telephone Encounter - Sandhya Estrada - 12/05/2023 1531 EDT Returned patient's call. Scheduled labs & PV on 01/30 - between ECHO & infusion. Labs @ 1030 & PV @ 1100 LMOM. Left PAC# * Telephone Encounter - Fady Nobles - 12/05/2023 1325 EDT HemOnc Incoming Call Appointment Related Which type of appointment is this for? Infusion Visit Is this a return call from a loom starter?No Other Route Routine Telephone encounter to Hem_Onc Scheduling Pool Calling to speak with scheduling about port flush/access apptment getting schedule 01/31/24 Echocardiogram 9:15am 01/31/24 Fady Nobles 12/05/2023 13:25 documented in this encounter Plan of Treatment Upcoming Encounters Date Type Department Care Team (Late st Contact Info) Description 04/02/2024 10:30 EDT Appointment [facility] Interventional Radiology Unit [address] [place] [address] 04/02/2024 15:15 EDT Office Visit [facility] [place] [address] Adolfo Carreno MD 111 [facility], Level 2 [place] [phone] 04/05/2024 9:30 EDT Telemedicine [facility] Palliative Care Services [address] [place] [address] [phone] Chichi Woods MD [address] [place] [address] [phone] 04/11/2024 15:00 EDT Telemedicine [facility] Hematology & Oncology - [address] 170631 Alisson Carreon MD [address] [place] [address] 2 [place] [phone] 04/13/2024 13:30 EDT Appointment [facility] Hematology & Oncology - [address] [phone] 04/13/2024 14:00 EDT Appointment [facility] Hematology & Oncology [address] 718271 04/16/2024 10:00 EST Telemedicine [facility] Palliative Care Services [address] [place] [address] [phone] Chichi Woods MD [address] [place] [address] [phone] 04/24/2024 9:00 EST Appointment [facility] Radiology CT Outpatient - [address] [phone] 04/24/2024 11:00 EST Appointment [facility] Breast Imaging - [address] [phone] 04/27/2024 12:00 EST Appointment [facility] Hematology & Oncology - [address] [address] 05/02/2024 15:00 EST Telemedicine [facility] Hematology & Oncology - [address] [address] Alisson Carreon MD [address] [place] [address] [phone] 05/04/2024 10:15 EST Ancillary Procedure [facility] Cardiology - [address] [place] [address] 05/04/2024 11:30 EST Appointment [facility] Hematology & Oncology [address] [address] 05/04/2024 12:00 EST Appointment [facility] Hematology & Oncology [address] [phone] 06/12/2024 13:00 EST Appointment [facility] Radiology CT - [address] 142771 documented as of this encounter Visit Diagnoses Not on filedocumented in this encounter Care Teams Construction Craft Laborer Relationship Specialty Start Date End Date Linda Blancas MD [address] [place] [address] 30 [place] [address] PCP - General 01/06/11 Adolfo Carreno MD [address] [place] [address] [phone] General Surgery 04/26/19 Augustina Colin MD PhD [address] [place] [phone] Medical Oncology 04/26/19 documented as of this encounter
--- OUTSIDE RECORDS SUMMARY | 2024-03-20 14:38 | XMS_ITS | Encounter Summary ---
Author Organization [facility] Address [address] [place] [address] Care Team Providers Care Seam Stayer Name Role Phone Linda Blancas MD Primary Care Provider [phone] Adolfo Carreno MD Unavailable [phone] Augustina Colin MD PhD Unavailable Unavailable Reason for Visit * Reason Onset Date Comments Coordination Of Care 11/30/2023 Encounter Details Date Type Department Care Team (Late st Contact Info) Description 11/30/2023 Telephone [facility] Gastroenterology - [facility] [address], [place] [phone] Yovana Bowman, RN Coordination Of Care Social History Tobacco Use [...] No 03/24/2018 Cognitive Status Response Date of Assess ent Because of a physical, menta l, or emotional condition, does this person have serious difficulty concentrating, remembering, or making decisions? No 03/24/2018 documented as of this encounter Miscellaneous Notes * Telephone Encounter - Yovana Bowman RN - 11/30/2023 1134 EDT From: Alisson Carreon MD Sent: 11/29/2023 18:46 EDT To: Hugo Vergara MD PhD; Yovana Bowman RN; * Excellent, thank you so much! * Telephone Encounter - Yovana Bowman RN - 11/30/2023 1134 EDT From: Hugo Vergara MD PhD Sent: 11/29/2023 12:23 EDT To: Yovana Bowman RN; MD Yovana Guaman: Ascitic fluid analysis results indicate that ascites is from portal hypertension, and that the patient would benefit from diuretics. Unless medical oncologist Dr Carreon (copied) has concerns, it would be reasonable to have ascites managed by us (in the short term). Please add the patient to the ascites list, offer starting furosemide 20 mg daily, spironolactone 50 mg daily, track weight. If thatis acceptable, please get BMP in 1 week. Thanks! Evangelist documented in this encounter Plan of Treatment Upcoming Encounters Date Type Department Care Team (Late st Contact Info) Description 04/02/2024 10:30 EDT Appointment [facility] Interventional Radiology Unit [address] [place] [phone] 04/02/2024 15:15 EDT Office Visit [facility] Surgical Oncology - [place] [address], [place] 559[address] Adolfo Carreno MD [address] [place] [address], [facility] [address] [place] [phone] 04/05/2024 9:30 EDT Telemedicine [facility] Palliative Care Services [address] [place] [address] [phone] Chichi Woods MD [address] [place] [address] [phone] 04/11/2024 15:00 EDT Telemedicine [facility] Hematology & Oncology - [address] [phone] Alisson Carreon MD [address] [place] [address] [address] [place] [phone] 04/13/2024 13:30 EDT Appointment [facility] Hematology & Oncology - [address] [phone] 04/13/2024 14:00 EDT Appointment [facility] Hematology & Oncology - [address] [phone] 04/16/2024 10:00 EST Telemedicine [facility] Palliative Care Services [address] [place] [address] 335001 Chichi Woods MD [address] [place] [address] [phone] 04/24/2024 9:00 EST Appointment [facility] Radiology CT Outpatient - [address] [id number] 04/24/2024 11:00 EST Appointment [facility] Breast Imaging - [address] [address] 04/27/2024 12:00 EST Appointment [facility] Hematology & Oncology [address] [phone] 05/02/2024 15:00 EST Telemedicine [facility] Hematology & Oncology [address] [phone] Alisson Carreon MD [address] [place] [address] [phone] 05/04/2024 10:15 EST Ancillary Procedure [facility] Cardiology - [address] [place], [place] [phone] 05/04/2024 11:30 EST Appointment [facility] Hematology & Oncology [address] [phone] 05/04/2024 12:00 EST Appointment [facility] Hematology & Oncology [address] 194941 06/12/2024 13:00 EST Appointment [facility] Radiology CT - [address] [phone] documented as of this encounter Visit Diagnoses Not on filedocumented in this encounter Care Teams Seam Stayer Relationship Specialty Start Date End Date Linda Blancas MD [address] [place] [phone] PCP - General 01/06/11 Adolfo Carreno MD [address] [place] [phone] General Surgery 04/26/19 Augustina Colin MD PhD [address] [place] [phone] Medical Oncology 04/26/19 documented as of this encounter
--- OUTSIDE RECORDS SUMMARY | 2024-03-20 14:38 | XMS_ITS | Encounter Summary ---
Author Organization [facility] Address [address] [place] [address] Care Team Providers Care Phy Therapist Name Role Phone Linda Blancas MD Primary Care Provider [phone] Adolfo Carreno MD Unavailable [phone] Augustina Colin MD PhD Unavailable Unavailable Encounter Details Date Type Department Care Team (Late st Contact Info) Description 12/09/2023 6:51 EDT - 12/09/2023 11:37 EDT Hospital Encounter [facility] OR [address] [place] [address] [phone] Nash Beard MD [address] [place] [address], [address] [place] [phone] Other ascites Discharge Disposition: Home or [...] Sign Reading Time Taken Comments Blood Pressure 109/90 12/09/2023 1115 EDT Pulse - - Temperature 36.2 ??C (97.2 ??F) 12/09/2023 1115 EDT Respiratory Rate 20 12/09/2023 1115 EDT Oxygen Saturation 94% 12/09/2023 1115 EDT Inhaled Oxygen Concentration - - Weight [...] Tablet by mouth every evening. 12/14/2023 mv-mn/C/glutamin/lysin /hwmb093 (AIRBORNE, ASCORBATE SODIUM, ORAL) Take by mouth [...] Division of Pulmonary and Critical Care Medicine [facility] Nash Beard MD 12/09/2023 9:31 Source Note - Jackie LeachDO - 11/23/2023 9:00 EDT PULMONARY CLINIC NEW [...] and was admitted for 10 days at [facility], although patient reports that she felt full recovery after this episode. Patient reports that she was diagnosed with asthma in 2017 after an episode of bronchitis but was [...] insj/rplcmt breast implant feb mastectomy (Bilateral, 05/30/2019); M astectomy (Right); back [...] Take by mouth daily., Disp: , Rfl: mv-mn/C/glutamin/lysin/tapt488 (AIRBORNE, ASCORBATE SODIUM, ORAL), Take by mouth [...] 1 dog - 3 years old Occupation: [address] stopped working 6 years ago - was [...] Contact Info) Description 04/02/2024 10:30 EDT Appointment [facility] Interventional Radiology Unit [address] [place] [address] [phone] 04/02/2024 15:15 EDT Office Visit [facility] Surgical Oncology - [address] [phone] Adolfo Carreno MD [address] [place] [address], [address] [place] [phone] 04/05/2024 9:30 EDT Telemedicine [facility] - [facility] Palliative Care Services [address] [place] [address] [phone] Chichi Woods MD [address] [place] [address], [address] [phone] 04/11/2024 15:00 EDT Telemedicine [facility] Hematology & Oncology - [address] [phone] Alisson Carreon MD [address] [place] [address], [address] [place] [phone] 04/13/2024 13:30 EDT Appointment [facility] Hematology & Oncology [address] [phone] 04/13/2024 14:00 EDT Appointment [facility] Hematology & Oncology - [address] [phone] 04/16/2024 10:00 EST Telemedicine [facility] - [facility] Palliative Care Services [address] [place] [address] [phone] Chichi Woods MD [address] [place] [address], [address] [phone] 04/24/2024 9:00 EST Appointment [facility] Radiology CT Outpatient - [address] [phone] 04/24/2024 11:00 EST Appointment [facility] Breast Imaging - [facility] [address] [phone] 04/27/2024 12:00 EST Appointment [facility] Hematology & Oncology [address] [phone] 05/02/2024 15:00 EST Telemedicine [facility] Hematology & Oncology - [address] [phone] Alisson Carreon MD [address] [place] [address], [address] [place] [phone] 05/04/2024 10:15 EST Ancillary Procedure [facility] Cardiology - [address] [place], [place] [phone] 05/04/2024 11:30 EST Appointment [facility] Hematology & Oncology - [address] [phone] 05/04/2024 12:00 EST Appointment [facility] H[facility] & Oncology - [address] [address] 06/12/2024 13:00 EST [facility] - [address] [phone] documented as of this encounter Procedures Procedure Name Priority Date/Time Associated Diagnosis Comments ADULT BRONCHOSCOPY PROCEDURE Routine 12/12/2023 21:31 EDT COMPREHENSIVE METABOLIC PANEL (CMP) Routine 12/09/2023 9:55 EDT Other ascites BRONCHOSCOPY 12/09/2023 9:47 EDT Chronic cough Gastroesophageal reflux disease, unspecified whether esophagitis present Special Needs IV Sedation documented in this encounter Results * ADULT BRONCHOSCOPY PROCEDURE (12/12/2023 21:31 EDT) Narrative [facility] - 12/12/2023 21:31 EDT [...] Nash Beard Nash Beard MD PFT ORDERABLES [facility] * (ABNORMAL) COMPREHENSIVE METABOLIC PANEL (CMP) (12/09/2023 9:55 EDT) Sodium 133(L) 136 - 145 mmol/L 12/09/2023 10:44 [facility] Potassium 3.7 3.5 - 5.0 mmol/L 12/09/2023 10:44 [facility] Chloride 104 96 - 110 mmol/L 12/09/2023 10:44 [facility] CO2 Total 24 22 - 32 mmol/L 12/09/2023 10:44 [facility] Glucose 112(H) 70 - 99 mg/dl 12/09/2023 10:44 [facility] BUN 24 10 - 26 mg/dL 12/09/2023 10:44 [facility] Creatinine 0.61 0.52 - 1.04 mg/dL 12/09/2023 10:44 [facility] eGFR 101 >60 mL/min/1.7 3m2 12/09/2023 10:44 [facility] Total Protein 5.2(L) 6.3 - 8.2 g/dL 12/09/2023 10:44 [facility] Albumin 2.7(L) 3.4 - 4.9 g/dL 12/09/2023 10:44 [facility] Alkaline Phosphatase 308(H) 38 - 126 U/L 12/09/2023 10:44 [facility] AST 46 15 - 46 U/L 12/09/2023 10:44 EDT [facility] ALT 37(H) <35 U/L 12/09/2023 10:44 EDT [facility] Bilirubin, Total 1.9(H) <1.4 mg/dL 12/09/19 10:44 EDT [facility] Calcium 8.0(L) 8.5 - 10.5 mg/dL 12/09/2023 10:44 EDT [facility] Albumin/Globulin Ratio 1.1 1.0 - 2.5 12/09/2023 10:44 EDT [facility] Anion Gap 5 5 - 14 mmol/L 12/09/2023 10:44 T [facility] Blood VENOUS BLOOD / Unknown Venipuncture / Unknown 12/09/2023 9:55 EDT 12/09/2023 10:13 EDT Hugo Vergara MD PhD CHEMISTRY & BLO OD GAS ORDERABLES Performing Organization Address City/State/[facility] Co de Phone Number [facility] [address] [place] [address] documented in this encounter Visit Diagnoses Diagnosis Other ascites Chronic cough Cough Gastroesophageal reflux disease Esophageal reflux documented in this encounter Admitting Diagnoses Diagnosis [...] 12/09/2023 documented in this encounter Care Teams Phy Therapist Relationship Specialty Start Date End Date Linda Blancas MD [facility] [address] [place] [address] PCP - General 01/06/11 Adolfo Carreno MD [address] [place] [phone] General Surgery 04/26/19 Augustina Colin MD PhD [address] [place] [phone] Medical Oncology 04/26/19 documented as of this encounter
--- OUTSIDE RECORDS SUMMARY | 2024-03-20 14:38 | XMS_ITS | Encounter Summary ---
Author Organization [facility] Address [address] [place] [address] Care Team Providers Care Molder Labels Name Role Phone Linda Blancas MD Primary Care Provider [phone] Adolfo Carreno MD Unavailable [phone] Augustina Colin MD PhD Unavailable Unavailable Reason for Referral * Radiology Services (Routine/Next Available) - Authorization Not Required Specialty Diagnoses / Procedures Referred By Contac t Referred To Contact Diagnoses Other ascites Metastasis from breast cancer ([facility]) Procedures IR PARACENTESIS-RADIOLOGY Jackie Juan MD [address] [place] [address] [facility] Referral ID Status Reason Start Date Expiration Date Visits Requested Visits Authorized [id number] Authorization Not Required 12/14/2023 1 1 * Consult (Routine/Next Available) - Receiving Office to Obtain Authorization Specialty Diagnoses / Procedures Referred By Contac t Referred To Contact Oncology Diagnoses Other ascites 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 unknown etiology. no mets on MRI Reason for Visit * Reason Comments Altered Mental Status Per patien dhiraj has been more confused/disoriented over the weekend. Patient report increased abdominal pain across her upper abdomen. Significant Cancer Hx. Last Chemo 2 weeks with last paracentesis on 11/28. 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, 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) [C79.9, C50.664]; Encephalopathy acute Discharge Disposition: Home or Self Care Social History Tobacco Use Types Packs/Day Years Used Date Smoking Tobacco: Never Passive Smoke Exposure: Never Smokeless Tobacco: Never Alcohol Use Standard Drinks/Week Comments Not Currently 1 (1 standard drink = 0.6 oz pur e alcohol) [facility] Utilities Answer Date Recorded In [...] Sign Reading Time Taken Comments Blood Pressure 134/86 12/14/2023 1334 EDT Pulse 97 12/13/2023 1720 EDT Temperature 36.7 ??C (98.1 ??F) 12/14/2023 1334 EDT Respiratory Rate 15 12/14/2023 1334 EDT Oxygen Saturation 98% 12/14/2023 1334 EDT Inhaled Oxygen Concentration - - Weight 53.5 kg (118 lb) 12/12/2023 1159 EDT Height 152.4 cm (5') 12/12/2023 1159 EDT Body Mass Index 23.05 12/12/2023 1159 EDT documented in this encounter [...] as of this encounter Discharge Summaries * Pavan Myles DO - 12/14/2023 1500 EDT Discharge Summary Primary Care Oncologist: Dr. Carreon Attending Physician: Dr. 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 Allergies, Medications, and Immunizations Allergies Allergen Reactions Amoxicillin Other (See Comments) and Rash Red rash Sulfa (Sulfonamide Antibiotics) Hives Light lavender rash Sulfamethoxazole-Trimethoprim Rash Hospital Course Sunshine Pleitez is a 63 y.o. female with PMH of metastatic breast cancer (to skin, lungs, liver, mediastinal nodes 2016), PE (apixaban), GERD who presented to [facility] ED on 12/12/23 with complaintof abdominal pain and confusion. Patient noted to have stable vital signs and labs notable for lactic acidosis, mild hypokalemia andmild elevation in LFTs. Diagnostic paracentesis performed in the ED and patient was admitted to medical oncology for further workup. Fluid studies were negative for SBP and patient had no other signsor symptoms of infection and remained afebrile. Her abdominal pain improved after the paracentesis and with the addition of morphine. Her mental status also gradually improved and MRI did not reveal any obvious cause of altered mental status including brain metastasis. Etiology of altered mental status unknown. The patient had been taking gabapentin which could have caused an altered level of consciousness but she has been on it since menopause and she and her are certain that she did not take too much. Presentation not consistent with hepatic encephalopathy as she had no asterixis and her sx resolved spontaneously. On 12-14-2023 patient was felt to be stable for discharge home with follow-up with her primary oncologist. She noted that she had been on effexor and Gabapentin since menopause to treat her hot flashesand wanted to come off of them. We decreased her effexor from 150 to 75, and gabapentin decreased to 200 TID. Her PCP can continue to taper. She was prescribed Morphine 7.5 mg (1/2 of 15 mg tablet) for abdominal pain as well as daily miralax. Transition of Care Plans Condition at Discharge Good Assessment at Discharge Vital signs: No data found. Results Pending at Discharge Test results still pending from this admission Procedure Component Value Units Date/Time ANAEROBE CULTURE/SMEAR(INC. AEROBES), OTHER [[id number]] Collected: 07/01/24 1934 Lab Status: Preliminary result Specimen: Fluid, Ascitic Fluid (Cytology: Best Practice is to [id number] - 1000ml) Updated: 12/14/23 1011 Organism ID No Growth Smear No Neutrophils Seen No bacteria seen AFB Culture/Smear, Other [[id number]] Collected: 12/12/23 1934 Lab Status: Preliminary result Specimen: Fluid, Ascitic Fluid (Cytology: Best Practice is to [id number] - 1000ml) Updated: 12/13/23 1450 AFB Smear No Acid Fast Bacilli Seen Bacterial Culture, Blood [[id number]] Collected: 12/12/23 1433 Lab Status: In process Specimen: Blood, Venous Updated: 12/12/23 1453 Bacterial Culture, Blood [[id number]] Collected: 12/12/23 1326 Lab Status: In process Specimen: Blood, Venous Updated: 12/12/23 1339 Relevant Studies at Discharge none Last Lab Results at Discharge Creatinine: Lab Results Component Value Date CREATININE 0.54 12/14/2023 Electrolytes: Lab Results Component Value Date NA 135 (L) 12/14/2023 K 4.6 12/14/2023 CL 107 12/14/2023 CO2 25 12/14/2023 Discharge Follow Up Appointments Scheduled with [facility] in the next 14 days These [facility] appointments have already been scheduled Dec 20, 2023 12:00 (Arrive by 11:45) PORT ACCESS/FLUSH with SHORT STAY CHAIR 2, HEM/ONC INF [facility] Hematology & Oncology [place] ([facility]) [address] [place] [phone] Dec 20, 2023 13:30 (Arrive by 13:15) Follow Up Visit with Alisson Carreon MD [facility]ology [facility] On[facility] [place] ([facility]) [address] [place] [id number] Dec 20, 2023 14:15 (Arrive by 14:00) Infusion with CHAIR 4 [facility] Hematology & Oncology [facility] ([facility]) [address] [place] [id number] Pavan Myles DO 12/15/2023 15:46 .ATTENDING ATTESTATION: On the day of discharge, I interviewed and examined the patient, reviewed pertinent labs, events, and notes as well as answered questions related to discharge. I agree with the findings and plan of care as documented above or have made edits to that effect. I personally spent > 30 minutes counseling and preparing the patient for discharge and coordinating outpatient follow-up. Pavan Myles DO,[facility] Internal Medicine Hospitalist 12/15/2023 15:46 documented in this encounter Medications at Time [...] 12/07/2023 03/13/2024 dexAMETHasone (DECADRON) 4 mg tabletIndications:Prim huog malignant neoplasm of breast with metastasis (HCC-CMS) [...] 12/15/2023 01/06/2024 documented as of this encounter Ordered Prescriptions Prescription Sig Dispensed Refills Start Date End Da te senna (SENOKOT) 8.6 mg tablet Take 2 Tablets by mouth daily for 30 days. 60 Tablet 12/14/2023 01/19/2024 polyethylene glycol 3350 (MIRALAX) 17 gram packet Take 17 g by mouth daily as needed for up to 30 days for Constipation. 30 Each 12/14/2023 01/13/2024 morphine (MS IR) 15 mg tablet Take 0.5 Tablets by mouth every 4 hours as needed for Pain. Daily Max: 45 mg 30 Tablet 12/14/2023 01/19/2024 venlafaxine (EFFEXOR-XR) 75 mg XR capsule Take 1 Capsule by mouth daily for 30 days. 30 Capsule 12/15/2023 01/06/2024 gabapentin (NEURONTIN) 100 mg capsule Take 2 Capsules by mouth 3 times daily for 30 days. 180 Capsule 12/14/2023 01/18/2024 documented in this encounter Discharge Disposition Disposition Code Departure Means Destination Comment s Home or Self Long-Term documented in this encounter Progress Notes * Pavan Myles DO - 12/14/2023 1704 EDT Medicine Progress Note Service Date: 12/14/2023 Admit Date: 12/12/2023 13:03 CC: Severe abdominal pain and altered mental status 24 Hour Events: - PRN morphine 3mg IV for pain Subjective/Objective Subjective Sunshine Pleitez reports sleeping well overnight. She had increased abdominal pain following her meal last night, requiring her PRN morphine for pain control. Vannessa shared that her abdominal pain is worsened by eating, and her appetite is worse when her ascites increases. Her AMS has improved, and she is grateful for more mental clarity. She also shared that her last bowel movement was yesterday and watery; she is usually constipated. Vannessa has no chest pain, palpitations, or nausea/vomiting. She still has her typical SoB from her chronic GERD. She has no other complaints. Review of Systems: As above Objective Vital Signs: BP Min: 118/72 Max: 134/86 BP MAP Min: 87 mm Hg Max: 96 mm Hg Pulse From Oximetry Min: 92 BPM Max: 97 BPM Resp Min: 15 Max: 18 Temp Min: 36.5 ??C (97.7 ??F) Max: 36.7 ??C (98.1 ??F) SpO2 Min: 93 % Max: 98 % O2 Device: None O2 Flow Rate (L/min) Min: 0 l/min Max: 0 l/min Weight : 53.5 kg (118 lb) Weight Min: 53.5 kg (118 lb) Min taken time: 12/12/23 1159 Max: 64.4 kg (141 lb 14.4 oz) Max taken time: 11/08/23 1409 I&O: Intake/Output Summary (Last 24 hours) at 12/14/2023 1726 Last data filed at 12/14/2023 1530 Gross per 24 hour Intake 700 ml Output -- Net 700 ml Physical Exam: General: Alert & awake, NAD. Mentation improved compared to yesterday Resp: Normal WOB, CTAB CV: RRR, no extra heart sounds. Abdominal: Mildly distended abdomen, tympanic to percussion. Non tender to palpation Extr: No peripheral edema noted. Skin warm to touch Neuro: Cranial nerves grossly intact. 4/5 strength bilaterally in lower extremities; strength normal elsewhere. No asterixis noted on exam. Alert and oriented to person, place, and time. Is PICC or central line present? Yes, it is still present. The line is still required. Medications: Scheduled Continuous PRN apixaban, 5 mg, BID gabapentin, 200 mg, TID pantoprazole, 40 mg, BEFORE BREAKFAST & DINNER predniSONE, 10 mg, DAILY [START ON 12/15/2023] venlafaxine, 75 mg, DAILY acetaminophen, 650 mg, Q6H PRN lidocaine, 2 mg, PRN lidocaine, 2 mg, PRN morphine, 7.5 mg, Q4H PRN ondansetron, 4 mg, Q6H PRN Or ondansetron (PF), 4 mg, Q6H PRN polyethylene glycol 3350, 17 g, Daily PRN ramelteon, 8 mg, AT BEDTIME PRN senna, 2 Tablet, AT BEDTIME PRN Labs: CBC: Recent Labs 12/12/23 1326 12/13/23 0543 12/14/23 0514 WBC 4.23 4.50 4.94 NEUTROABS 2.14* 2.31 2.03* HGB 10.7* 9.2* 8.8* MCV 100* 99* 99* PLT 261 222 261 Anemia studies: Lab Results Component Value Date FERRITIN 06/30/2005 Electrolytes: Recent Labs 12/13/23 0543 12/14/23 0514 NA 136 135* K 4.6 4.6 CL 109 107 CO2 25 25 BUN 24 20 CREATININE 0.57 0.54 CALCGFR 103 104 MG 2.2 2.3 Coags: Recent Labs 12/12/23 1823 PROTIME 13.0* INR 1.2* Hepatic function/Nutrition: Recent Labs 12/12/23 1326 12/13/23 0543 12/14/23 0514 AST 66* 46 45 ALT 44* 36* 35* ALKPHOS 331* 278* 287* TBIL 2.2* 1.8* 1.6* TP 5.7* 4.7* 4.7* LABALBU 3.0* 2.3* 2.4* LIPASE 116 -- -- Calcium: Recent Labs 12/13/23 0543 12/14/23 0514 CALCIUM 7.7* 7.6* Lactic Acid: Recent Labs 12/12/23 1326 12/12/23 1740 LACTICACID 2.9* 1.3 Thyroid Function: Lab Results Component Value Date TSH 1.10 12/12/2008 TSH 0.99 04/18/2006 Imaging: - MR HEAD W WO CONTRAST Result Date: 12/13/2023 No evidence of intracranial metastatic disease [id number] CT HEAD WO CONTRAST Result Date: 12/12/2023 No evidence of recent intracranial hemorrhage, acute infarction, or mass. I have personally reviewed the images and the above interpretation and agree with the findings. [id number] CT ABDOMEN PELVIS W CONTRAST Result Date: [...] above interpretation and agree with the findings. [id number] IR PARACENTESIS-RADIOLOGY Result Date: 11/29/2023 Successful, uncomplicated paracentesis using sonographic guidance yielding 1.7 L fluid. LUNA Arguelles, PA-C Interventional Radiology I have personally reviewed the images and the above interpretation and agree with the findings. [id number] NM BONE WHOLE BODY Result Date: 11/25/2023 [...] the above interpretation and agreewith the findings. [id number] Micro: 12/12/23 ascitic fluid -anaerobe culture/smear: negative -AFB culture/smear: negative -bacterial culture/smear: standing 12/12/23 Bcx x2: NGTD ANAEROBE CULTURE/SMEAR(INC. AEROBES), OTHER Collection Time: 12/12/23 19:34 Specimen: Fluid, Ascitic Fluid (Cytology: Best Practice is to submit 100 - 1000ml) Result Value Ref Range Smear No Neutrophils Seen Smear No bacteria seen Pathology: -12/12/23 paracentesis - cell count 74 Assessment/Plan Assessment Vannessa Pleitez is a 63 y.o. female with PMHx of metastatic ER/HER2+ Breast cancer (dx 2016) to skin, lungs, mediastinal LN, and liver (since 12/02) on trastuzumab/deruxtecan Q21 days 10/17--11/28 and s/p liver Y90 ablation &06/03; recurrent ascites requiring paracentesis and lasix and spironolactone since 11/03 (last para 11/28, started on lasix 20 emy 51); UE DVT and bilateral stable PE on 11/03 on apixaban, rib fractures treated with denosumab, chronic cough w/ bronch on 10 prednisone (&atovaquone?), GERD, Ovarian failure, and severe COVID in 2019. Vannessa arrived to the ED w/ severe abdominal pain, AMS, and a 20lb weight loss and was admitted to the medical oncology service for workup. Her mental status has improved since yesterday, and head imaging showed no signs of hemorrhage, infarct, or metastasis. LFTs, including ALP and GTT remain elevated, suggestive of intrahepatic biliarydisease, likely from her metastasis. As her abdominal pain and AMS is improving, her disposition has improved and can likely be discharged if clinical course contends to improve. Plan #Abdominal Pain #Recurrent ascites 12/[address] scan showing signs of enteritis. S/p paracentesis on 12/11 with a nucleated cell count of 74. Differential for her pain includes recurrent high volume ascites, infection to the ileum, and malignant/metastatic infiltration of the livers and intestines. Elevated ALP and GTT makes metastatic disease of the liver the most likely. - Daily CMP to trend LFTs - Switch PRN IV morphine 3mg to 7.5 PRN PO morphine IR in anticipation of discharge -Increase to 4.5mg for moderate pain -Increase to 6mg for severe pain #AMS, improving Patient oriented to person, place, and time today. She still has occasional word finding difficulties, but far better than yesterday. Iatrogenic causes are the most likely at this time, given 12/11 CT head negative for intracranial hemorrhage and 12/12 MRI negative for metastatic disease or other lesions or edema. History of portal HTN and ascites raises suspicion for hepatic encephalopathy, yet jesus l 12/12 ammonia and lack of asterixis on exam makes this unlikely. 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 Code Status Information Code Status Comments Full Code (none) Modified Resuscitation Specifics: When the patient has NO PULSE:: Full Code / CPR Who Made the Decision?: Default/Not Discussed Diet: DIET REGULAR Regular diet VTE Prophylaxis: Consults: Discharge Plan: end of week pending continued improvement Oskar Ferrell (Jackson), MS4 Pager [phone] 12/14/23 17:26 Attending Attestation I was present with the medical student for the history, exam, medical decision making documented byhim/her. I have personally performed my own physical exam and medical decision making. All the above occurred on the same date that the note was written. I have verified and agree with (or, as indicated, have edited) the medical student???s documentation. Pavan Myles DO Internal Medicine Hospitalist * Caroline Devine RN - 12/14/2023 6306 EDT Data: Pt admitted for encephalopathy, AMS, abdominal pain and aphasia, VSS on RA, A/Ox3 now. Voiding adequate amounts of CYU, +flatus and +BM. Pt reports no pain all day. Discharge order in place. Action: Reviewed discharge teaching and AVS with patient, answered patient questions. Removed IV. Response: Pt verbalizes understanding of teaching, IV removed without complication. Pt left via wheelchair with [facility] to [facility], providing private transportation home. * Enma Sorensen - 12/14/2023 1530 EDT [facility] Spiritual Care Note Re: Sunshine Pleitez : 1960, AGE: 63 y.o. ROOM: [id number] Spirituality: Sikhism BACKGROUND Patient welcomed spiritual care. She was in high spirits about to be discharged. Her was present and spoke with director of premium seat sales about his own network of care. ASSESSMENT Beliefs & Values Patient is Sikhism and appreciates prayer. Connections Patient and exhibited a caring raines, handholding, etc. Patient expressed that her family, and neighbors and friends are supporters. Coping Patient expressed fear at the confusion earlier this week, and relief that it was not cancer in thebrain. Patient's partner was also visibly shaken by the scare. Meaning Making Patient stated she and love gardening together. Patient stated she and loved dancing together in the past. INTERVENTIONS Active and empathic listening, family support, explored new coping mechanisms, ways to access community care, and new prayers. CARE PLAN Patient is being discharged today. Electric Sign Assembler support as needed. RECOMMENDATIONS None at this time. TIME STAMP: 45 minutes Thank you for the opportunity to provide for this patient's/family's spiritual needs. Enma Sorensen, [facility] Electric Sign Assembler Music Industry Intern Oral 131 Spiritual Care Department Electric Sign Assembler Note Re: Sunshine Pleitez : 1960 Room: [facility]/[id number] Service: Adult Hospital Medicine Shinto: Sikhism Sunshine has received a visit from the Spiritual Care Department on 12/14/2023. Assessment/Comments: DEMOGRAPHICS Spiritual Care Welcomed End of Life Patient Is Spiritual Importance Moderately Important Current Support System Family/Friends Level of Support Strong Support ENCOUNTER DATA Date of Encounter 12/14/23 Time of Encounter 1530 Reason for Encounter Initial Visit Referred by Care Level 4 - Significant Patient Concerns Reason not visited ENCOUNTER Needs Addressed Family Support, Grief/Loss, Fear/Anxiety, Prayer Support, Social Support Interventions Advocate for Patient/Family, Assessed and Affirmed Strengths, Assessed Cultural Needs, Assessed Spiritual/Taoist Needs, Build Relationship, Explored Spiritual/Relgious/Social Supports, Family Support, Prayer, Support Sacraments Provided Date of Anointing Communion Date of Communion Date of Christianity OUTCOME Outcome Stress Level Reduced Stress Outcome of Encounter Patient Satisfied CARE PLAN Plan Patient/Family will Call if Needed Consult With Additional Support Was Clergy Needed? , TIME STAMP: Total time spent 45 minutes in direct floor time; >50% of time was spent in spiritual care. Enma Sorensen 12/14/2023 16:37 * Kareem Coloradocarlos - 12/13/2023 1311 EDT Initial Case Management/Social Work Assessment and Discharge Plan/Readmission Risk Assessment REASON FOR ADMISSION: Other ascites Patient understands reason for admission: Yes PATIENT INFO VERIFIED: PCP, Contact Info, Address Type of housing (single family, condo, apartment, snf, single room occupancy, [facility] funded hotel room, group custodial) - [facility] Who does the patient live with? SO Does the patient have access to their own bedroom/bathroom/kitchen - or is it shared with others? Own Name of housing complex (ex [employer], [facility], etc)- Housing Authority/Managing Organization - Community Care Providers (home health care case manager, [facility] nurse, etc) name and contact information- Discharge Delay Risk Assessment 1. Disease/Medical Condition: Terminal stage malignant disease, Diseases or conditions that result in ADL decline or continuous medical treatment Major Barrier day total 1-6: 2 Minor or major discharge risk delay(s) present?: No discharge barriers identified Does the patient meet criteria to be escalated?: No LIVING ARRANGEMENTS AND ACCESSIBILITY ISSUES: Living Arrangements: Spouse / significant other, Private residence Levels: 1 Stairs to enter: 2 Bathroom located on bedroom level?: Yes What in home social supports are available to the patient? Spouse / significant other, Friends / neighbors Is 03/01 care available? Yes ADVANCED DIRECTIVES, POA &/or COLST IN PLACE: no DIRECTIVES FOR FINANCES:no TRANSPORTATION: Transportation: Family Does the patient need discharge transport arranged?: No Expected Discharge on IV Antibiotics: No CULTURAL, ANGLICAN and/or LANGUAGE factors affecting health care/discharge planning: Spiritual/Cultural Requests: None Insurance Information: Medicare & AARP Nutrition: DISCHARGE RISK ASSESSMENT: Requires assistance with ADLs/IADLs Total # selected above: Tentative plan to address the risk of re-hospitalization for those at HIGH MODERATE RISK: RAPT TOOL: Age: 50-65 Gender: Female Ambulation distance: 1-2 blocks Gait device: None Will you live with someone who will care for you?: Yes RAPT Tool Score: 9 SBIRT: FUNCTIONAL STATUS: Activities patient requires assistance: Age appropriate, Taking Medications Assistive Devices: None COMMUNITY RESOURCES/SUPPORTS: Primary Care Provider: Linda Blancas PCP Verified: Specialists: Oncology Type of Home Health Services: None DME Provider: Pharmacy: [id number] - [place], [place] - [address] [facility] [address] [facility] [address] [place], [place] - [address] [facility] [id number] [facility] ([facility]) - [place], [place] - [address] [address] [facility]/pharmacy #[id number] - [place] - [address] [facility] [address] [facility] - [place] - [facility] AT Portal to Registered [facility] [place] [address] [facility] ([facility]) - [place], [place] - [address] [facility] [address] [id number] - [place], [place] - [address] [facility] [address] [id number] - [place] - [address] [facility] [address] [facility] [address] [facility] [place] [address] [id number] [address] [place] [facility] [address] Home Health: NA Other: POST HOSPITAL TRANSITION PLAN: CM met with pt in her room. Pt claims she has been independent with ADLs prior to this admission. Pt has some word finding difficulties and confusion. Pt is well supported by spouse who provides rides. Pt states she has not needed HH or DME. Pt does not have an advance directive. Pt is getting a MRI today and will most likley be here for a few days. CM will continueto monitor the clinical notes, meet with the treatment team, and regularly check in with the patient throughout their hospital stay to facilitate a safe discharge. ABEL Mims [employer] Entry Level Project Coordinator [phone] or avail by [employer] Zachariah [place] 12/13/2023 13:12 * Pavan Myles, - 12/13/2023 0555 EDT Medicine Progress Note Service Date: 12/13/2023 Admit Date: 12/12/2023 13:03 CC: Severe abdominal pain and altered mental status 24 Hour Events: - Admitted Subjective/Objective Subjective Sunshine Pleitez was admitted this morning for AMS and significant abdominal pain. Collateralinformation was collected by her , Nitish. Per Nitish, Vannessa had significant abdominal pain and altered mental status with worsening ascites for 2-3 days, starting on Tuesday, 12/08. Nitish shares that over the weekend, Gwen was vomiting up any food or fluids provided to her, and she spent most ofthe weekend curled up on the couch asleep. This level of disorientation is uncommon to Vannessa. She describes her pain as Knife blade pain over her abdomen, and Nitish reports that the last time she felt this pain was 8-9 years ago following a spinal fusion procedure. In addition to the acute pain, Nitish also shares the despite the worsening ascites, Vannessa has lost 20lbs over the last 3 weeks. Shealsmanas was having word-finding difficulties; these are normal at her baseline, but over the last few months he has noticed it being worse. Her primary oncologist is Dr. Carreon, she sees Dr. Vergara for her recurrent ascites, and Dr. Leach for her chronic cough. When Vannessa was interviewed this morning, was oriented to person and place only. She was quite cheery. She describes discomfort in her throat and abdomen, with the abdomen being worse. In the morning,she was not in pain, but during the afternoon her pain was up to a 8.5/10. She denies chest pain, but endorses SoB from chronic GERD. Franca shared that she was recently started on diuretics that have helped her ascites and pedal edema, however, she noted that her diuretics were not effective in treating the worsening ascites that preceded her hospitalization. She denies other symptoms at this time, and would like to understand better what is causing her significant discomfort. Otherwise, denies any chest pain, SOB, palpitations, dizziness/lightheadedness, abdominal pain, N/V, diarrhea, constipation, or headache. Review of Systems: As above Objective Vital Signs: BP Min: 131/80 Max: 148/83 BP MAP Min: 79 mm Hg Max: 101 mm Hg Pulse From Oximetry Min: 93 BPM Max: 103 BPM Resp Min: 15 Max: 18 Temp Min: 36.6 ??C (97.9 ??F) Max: 36.9 ??C (98.4 ??F) SpO2 Min: 95 % Max: 98 % O2 Device: None No data recorded Weight : 53.5 kg (118 lb) Weight Min: 53.5 kg (118 lb) Min taken time: 12/12/23 1159 Max: 64.4 kg (141 lb 14.4 oz) Max taken time: 11/08/23 1409 I&O: Intake/Output Summary (Last 24 hours) at 12/13/2023 1902 Last data filed at 12/13/2023 1200 Gross per 24 hour Intake 400 ml Output -- Net 400 ml Physical Exam: General: Alert & awake, NAD Resp: Normal WOB, CTAB CV: RRR, no extra heart sounds. Abdominal: Mildly distended abdomen, tympanic to percussion. Non tender to palpation Extr: No peripheral edema noted. Skin warm to touch Neuro: Cranial nerves grossly intact. 4/5 strength bilaterally in lower extremities; strength normal elsewhere. No asterixis noted on exam. Is PICC or central line present? Yes, it is still present. The line is still required. Medications: Scheduled Continuous PRN apixaban, 5 mg, BID pantoprazole, 40 mg, BID predniSONE, 10 mg, DAILY acetaminophen, 650 mg, Q6H PRN lidocaine, 2 mg, PRN lidocaine, 2 mg, PRN morphine, 3 mg, Q4H PRN ondansetron, 4 mg, Q6H PRN Or ondansetron (PF), 4 mg, Q6H PRN polyethylene glycol 3350, 17 g, Daily PRN ramelteon, 8 mg, AT BEDTIME PRN senna, 2 Tablet, AT BEDTIME PRN Labs: CBC: Recent Labs 12/12/23 1326 12/13/23 0543 WBC 4.23 4.50 NEUTROABS 2.14* 2.31 HGB 10.7* 9.2* MCV 100* 99* PLT 261 222 Anemia studies: Lab Results Component Value Date FERRITIN 06/30/2005 Electrolytes: Recent Labs 12/12/23 1326 12/13/23 0543 NA 137 136 K 3.3* 4.6 CL 104 109 CO2 26 25 BUN 30* 24 CREATININE 0.64 0.57 CALCGFR 100 103 MG -- 2.2 Coags: Recent Labs 12/12/23 1823 PROTIME 13.0* INR 1.2* Hepatic function/Nutrition: Recent Labs 12/12/23 1326 12/13/23 0543 AST 66* 46 ALT 44* 36* ALKPHOS 331* 278* TBIL 2.2* 1.8* TP 5.7* 4.7* LABALBU 3.0* 2.3* LIPASE 116 -- Calcium: Recent Labs 12/12/23 1326 12/13/23 0543 CALCIUM 8.1* 7.7* Lactic Acid: Recent Labs 12/12/23 1326 12/12/23 1740 LACTICACID 2.9* 1.3 Thyroid Function: Lab Results Component Value Date TSH 1.10 12/12/2008 TSH 0.99 04/18/2006 Imaging: - MR HEAD W WO CONTRAST Result Date: 12/13/2023 No evidence of intracranial metastatic disease [id number] CT HEAD WO CONTRAST Result Date: 12/12/2023 No evidence of recent intracranial hemorrhage, acute infarction, or mass. I have personally reviewed the images and the above interpretation and agree with the findings. [id number] CT ABDOMEN PELVIS W CONTRAST Result Date: [...] above interpretation and agree with the findings. [id number] IR PARACENTESIS-RADIOLOGY Result Date: 11/29/2023 Successful, uncomplicated paracentesis using sonographic guidance yielding 1.7 L fluid. LUNA Arguelles PA-C Interventional Radiology I have personally reviewed the images and the above interpretation and agree with the findings. [id number] NM BONE WHOLE BODY Result Date: 11/25/2023 [...] the above interpretation and agreewith the findings. [id number] IR LIMITED U/S ABDOMEN Result Date: 11/14/2023 Limited ultrasound abdomen. LUNA Arguelles PA-C Interventional Radiology I have personally reviewed the images and the above interpretation and agree with the findings. [id number] Micro: 12/12/23 ascitic fluid -anaerobe culture/smear: NGTD -AFB culture/smear: NGTD -bacterial culture/smear: NGTD 12/12/23 Bcx x2: NGTD - COVID: Lab Results Component Value Date COVIDUV Negative 12/12/2023 - Recent Results (from the past 24 hour(s)) SARS COV2, FLU A/B, RSV DETECT BY PCR Collection Time: 12/12/23 14:44 Specimen: Nasopharynx; Swab Result Value Ref Range FLU A RNA Result (FLARES) Negative Negative FLU B RNA Result (FLBRES) Negative Negative RSV RNA Result (RSVRES) Negative Negative COVID-19 rt-PCR Result Negative Negative ANAEROBE CULTURE/SMEAR(INC. AEROBES), OTHER Collection Time: 12/12/23 19:34 Specimen: Fluid, Ascitic Fluid (Cytology: Best Practice is to submit 100 - 1000ml) Result Value Ref Range Smear No Neutrophils Seen Smear No bacteria seen Pathology: -12/12/23 paracentesis - cell count 74 Assessment/Plan Assessment Vannessa Pleitez is a 63 y.o. female with PMHx of metastatic ER/HER2+ Breast cancer (dx 2016) to skin, lungs, mediastinal LN, and liver (since 12/02) on trastuzumab/deruxtecan Q21 days 10/17--11/28 and s/p liver Y90 ablation &06/03; recurrent ascites requiring paracentesis and lasix and spironolactone since 11/03 (last para 11/28, started on lasix 20 emy 50); UE DVT and bilateral stable PE on 11/03 on apixaban, rib fractures treated with denosumab, chronic cough w/ bronch on 10 prednisone (&atovaquone?), GERD, Ovarian failure, and severe COVID in 2019. Vannessa arrived to the ED w/ severe abdominal pain, AMS, and a 20lb weight loss and was admitted to the medical oncology service for workup. CT head in the ER was negative for intracranial bleeding and the fluid from paracentesis showedno signs of intraabdominal infection. CT AP was noteworthy for signs of enteritis and cholelithiasis; no change was noticed to her hepatic metastatic disease. Oncology has been consulted and is following the case. Workup to elucidate the cause of her AMS and abdominal pain is ongoing. Plan #Abdominal Pain #Recurrent ascites 12/[address] scan showing signs of enteritis. S/p paracentesis on 12/11 with a nucleated cell count of 74. Differential for her pain includes recurrent high volume ascites, infection to the ileum, and malignant/metastatic infiltration of the intestines - CTM 12/11 bcx x2 and ascitic fluid cultures - Treat pain with PRN IV morphine 3mg. -Increase to 4.5mg for moderate pain -Increase to 6mg for severe pain #AMS Patient oriented to person only. CT head negative for intracranial hemorrhage. History of portal HTN and ascites raises suspicion for hepatic encephalopathy. Metastasis to the brain cannot be ruled out at this time. 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 Code Status Information Code Status Comments Full Code (none) Modified Resuscitation Specifics: When the patient has NO PULSE:: Full Code / CPR Who Made the Decision?: Default/Not Discussed Diet: DIET REGULAR VTE Prophylaxis: Consults: Discharge Plan: unclear at this time, pending clincal course Oskar Ferrell (Jackson), MS4 Pager [phone] 12/13/23 19:02 Attending Attestation I was present with the medical student for the history, exam, medical decision making documented byhim/her. I have personally performed my own physical exam and medical decision making. All the above occurred on the same date that the note was written. I have verified and agree with (or, as indicated, have edited) the medical student???s documentation. Pavan Myles DO Internal Medicine Hospitalist documented in this encounter H&P Notes * Bambi Porter MD - 12/12/2023 193 EDT Medical Oncology Admission Note Admission Date: 12/12/2023 PCP: Linda Blancas Date of Service: 12/13/2023 Hospital Day: LOS: 1 day Room: [id number] Time of Evaluation:7:00 Chief Complaint: Altered Mental Status (Per patient has been more confused/disoriented overthe weekend. Patient report increased abdominal pain across her upper abdomen. Significant Cancer Hx. Last Chemo 2 weeks with last paracentesis on 11/28. ) HPI: Sunshine Pleitez is a 63 y.o. female with PMH of metastatic breast cancer (to skin, lungs, liver, mediastinal nodes 2016), PE (apixaban), GERD who presented with complaint of abdominal pain andconfusion. Upon my interview, patient unable to provide a coherent history and her spouse could not be contacted overnight. Reporting abd pain, pain in her mouth. Per chart review of ED triage note, it appears she has had terrible pain per for 2-2.5 days. Thinks she probably needs paracentesis. Decreased PO with vomiting yesterday. Also is disoriented. Weight has dropped from 135 to 118 in a few weeks despite fluid going up. Diuretics no longer as effective. In the Emergency Department: VSS. Labs notable for CBC with hemoglobin 10.7, ANC 2.14. CMP with potassium 3.3, glucose 138, elevated LFTs with alk phos 331, AST 66, ALT 44, T. bili 2.2. Lipase 116. VBG with pH 7.39, pCO2 45. Initial lactate 2.9 which then normalized to 1.3. INR 1.2. RVP negative. CT head without acute abnormalities, CT abdomen pelvis concerning for hyperenhancement of the mucosa involving the ileum suspicious for enteritis, unchanged hepatic metastatic disease and bilateral pulmonary emboli as well as moderate to large volume ascites. Received morphine 4 mg x 1, cefepime 2 g x 1, vancomycin 1 g x 1, 500 cc LR bolus as well as potassium repletion and IV Zofran. 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 History of general anesthesia Immunosuppressed status ([facility]) 12.11.21 Breast cancer stage 4 Liver disease 10.12.23 Acsitiesm Lumbar radicular syndrome Nausea & vomiting Numbness Pulmonary embolism ([facility]) 11.11.23 Reactive airway disease 09.12.23 Shortness of [...] - [place] no complications BREAST SURGERY 08/2018 financial risk manager placed right breast - [place] no complications CARPAL TUNNEL RELEASE 200705/07/2019 beir block - no complications EYE SURGERY Partially detached retina FOOT SURGERY 05/2021 right big toe fused, right little toe screw FRACTURE SURGERY Morrell fractures in both feet,right big toe fusion LIPOMA RESECTION 200005/07/2019 [place] no complications [place] INSJ/RPLCMT BREAST IMPLANT Feb MASTECTOMY Bilateral 05/30/2019 Exchange right tissue financial risk manager to silicone implant, exchange of left implant for matching performedby Tylor Boss MD at [facility] Social History Family History Social History Tobacco Use Smoking status: Never [...] 36 breast Cancer Paternal Aunt Breast cancer Home Medications Medications Prior to Admission Medication Sig Dispense Refill Last Dose apixaban (ELIQUIS) 5 mg tablet Take 1 Tablet by mouth 2 times daily. 60 Tablet 11 calcium-vitamin D (OS-CHAR D) 500 mg(1,250mg) -200 unit per tablet Take 1 Tablet by mouth 2 times daily with breakfast and dinner. cholecalciferol, Vitamin D3, 25 mcg (1,000 unit) tablet Take 1 Tablet by mouth daily. dexAMETHasone (DECADRON) 4 mg tablet Take 2 Tablets by mouth daily. Take on days 2 and 3 after chemotherapy. 12 Tablet 5 furosemide (LASIX) 20 mg tablet Take 1 Tablet by mouth daily. 30 Tablet 1 gabapentin (NEURONTIN) 100 mg capsule Take 2 Caps by mouth 2 times daily. (Patient taking differently: Take 3 Capsules by mouth 2 times daily. And 600 mg at night) 360 Cap 3 gabapentin (NEURONTIN) 600 mg tablet Take 1 Tablet by mouth every evening. MULTIVITS W-CA,FE,OTHER MIN (WOMEN'S DAILY FORMULA ORAL) Take by mouth daily. mv-mn/C/glutamin/lysin/[id number] ([place], ASCORBATE SODIUM, ORAL) Take by mouth as needed. (Patientnot taking: Reported on 11/03/2023) omeprazole (PRILOSEC) 40 mg capsule Take 1 Capsule by mouth 2 times daily. 60 Capsule 11 prasterone, dhea, (INTRAROSA) 6.[address] 6.5 mg vaginally daily. (Patient not taking: Reported on 06/16/2023) 28 Each 4 predniSONE (DELTASONE) 10 mg tablet Take 1 Tablet by mouth daily with breakfast. 30 Tablet 0 prochlorperazine (COMPAZINE) 10 mg tablet Take 1 Tablet by mouth every 6 hours as needed for Nausea. 30 Tablet 5 RED YEAST RICE EXTRACT ORAL Take 1,200 mg by mouth daily. 600mg 2x a day spironolactone (ALDACTONE) 50 mg tablet Take 1 Tablet by mouth daily. 30 Tablet 1 valACYclovir (VALTREX) 500 mg tablet Take 1 Tab by mouth daily. 90 Tab 3 venlafaxine (EFFEXOR-XR) 150 mg XR capsule Take 1 Cap by mouth daily. 90 Cap 3 Allergies Allergies Allergen Reactions Amoxicillin Other (See Comments) and Rash Red rash Sulfa (Sulfonamide Antibiotics) Hives Light lavender rash Sulfamethoxazole-Trimethoprim Rash Objective VITALS: Temp: [36.5 ??C (97.7 ??F)-36.9 ??C (98.4 ??F)] , Heart Rate: [99 BPM-100 BPM] , Resp: [16-18] , BP: (133-148)/(63-91) , SpO2: [95 %-100 %] I&O: Intake/Output Summary (Last 24 hours) at 12/13/2023 0700 Last data filed at 12/12/2023 1643 Gross per 24 hour Intake 500 ml Output -- Net 500 ml EXAM: General: in NAD, AxOx2 (name, place hospital, but not year) HEENT: no evidence of thrush numerous posterior OP ulcerated lesions Heart: Regular rate and rhythm. No murmurs appreciated. No peripheral edema or JVD. Lungs: Breathing comfortably on RA, speaking in full sentences. Clear to auscultation bilaterally. Abdomen: Soft, non-tender, mildly distended. : No dunn present. Extremities: Warm and well-perfused. Skin: Warm, dry, no diaphoresis Lab Data CBC: Recent Labs 12/12/23 1326 12/13/23 0543 WBC 4.23 4.50 HGB 10.7* 9.2* HCT 32.5* 27.0* MCV 100* 99* PLT 261 222 BMP: Recent Labs 12/12/23 1326 12/13/23 0543 NA 137 136 K 3.3* 4.6 CL 104 109 CO2 26 25 BUN 30* 24 CREATININE 0.64 0.57 MG -- 2.2 CALCIUM 8.1* 7.7* SERGLU 138* 87 Coags: Recent Labs 12/12/23 1823 PROTIME 13.0* INR 1.2* LFTs: Recent Labs 12/12/23 1326 12/13/23 0543 ALT 44* 36* AST 66* 46 ALKPHOS 331* 278* TBIL 2.2* 1.8* TP 5.7* 4.7* LABALBU 3.0* 2.3* ABGs: Recent Labs 12/12/23 1326 BEART 1.30 VBGs: Recent Labs 12/12/23 1326 PHVENOUS 7.39 [id number] 27* Incorrect component name entered: [id number] Lactic Acid: Recent Labs 12/12/23 1326 12/12/23 1740 LACTICACID 2.9* 1.3 Incorrect component name entered: [id number] Imaging: CT HEAD WO CONTRAST Result Date: 12/12/2023 EXAM: CT HEAD WO CONTRAST HISTORY: Increased confusion over the past few days actively treated for breast cancer with chemotherapy; Increased confusion over the past few days actively treated for breast cancer with chemotherapy; TECHNIQUE: CT head without contrast. Structured report code: NR.CT01 This CT used either dose modulation and/or iterative reconstruction techniques to lower radiation dose. COMPARISON: MR head 12/30/2016. FINDINGS: PARENCHYMA: No evidence of acute infarction. No acute parenchymal hemorrhage. No mass or shift of structures across the midline. EXTRA-AXIAL SPACES: No extra-axial collection. No extra-axial mass. No acute extra-axial hemorrhage. VENTRICULAR SYSTEM: No acute intraventricular hemorrhage. No obstructive hydrocephalus. VESSELS: Limited evaluation without IVcontrast. Normal density in the dural venous sinuses. Trace calcifications are present within the carotid siphons. BONES: No concerning lesions. No evidence of fracture. ORBITS: No significant abnormality. PARANASAL SINUSES/MASTOID AIR CELLS: Predominantly clear. EXTRACRANIAL SOFT TISSUES: Unremarkable. No evidence of recent intracranial hemorrhage, acute infarction, or mass. I have personally reviewed the images and the above interpretation and agree with the findings. [id number] CT ABDOMEN PELVIS W CONTRAST Result Date: 12/12/2023 CT ABDOMEN PELVIS W CONTRAST 12/12/2023 3:38 PM Signs and Symptoms/Comments: Upper abdominal pain with nausea but no vomiting over the past few days, actively being treated for metastatic breast cancer; Upper abdominal pain with nausea but no vomiting over the past few days, actively being treated for metastatic breast cancer; Technique: CT of the abdomen and pelvis was performed following the administration of intravenous contrast. This CT used either dose modulation and/or iterative reconstruction techniques to lower radiation dose. Comparison: CT abdomen pelvis 11/09/2023, 10/14/2023. Findings:Lower chest: Incidentally noted bilateral pulmonary emboli (series 201 image 13, 15), which is present and unchanged compared to prior exam on 11/09/2023. Liver: Diffuse hepatic metastases, not significantly changed compared to prior exam on 11/09/2023. Specifically, the 3 metastases mentioned on prior exam are unchanged in size. Gallbladder: Calcified cholelithiasis. Bile ducts: Nondilated. Spleen: More conspicuous heterogeneity of the hepatic parenchymal enhancement. Splenomegaly. Pancreas: No focal pancreatic lesion or pancreatic ductal dilatation. Adrenal glands: No adrenal mass. Kidneys, ureters, bladder: Symmetric nephrograms. Bilateral subcentimeter hypodensities, too small to accurately characterize on CT. No nephrolithiasis or hydroureteronephrosis. Unremarkable urinary bladder. Reproductive organs: Uterine fibroids are unchanged. No adnexal mass. Bowel: Bowel wall thickening andincreased mucosal enhancement in the ascending colon, cecum,, and stomach consistent with portal hypertensive colopathy and gastropathy. There is mucosal hyperenhancement involving the ileum in the right lower quadrant. Peritoneal cavity: Moderate to large volume hypodense free fluid throughout theperitoneum. Lymph nodes: Increased number of visible mesenteric lymph nodes, not significantly changed compared to prior exam. No pathologically enlarged lymph nodes Vascular: Atherosclerotic calcifications of the nonaneurysmal abdominal aorta. Portal system is patent. Abdominal wall: No bowel-containing hernia. Musculoskeletal: Posterior fusion hardware of L3-S1. Multilevel degenerative changes.Unchanged right iliac wing lytic lesion. 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 1. Hyperenhancement of the mucosa involving the [...] above interpretation and agree with the findings. [id number] IR PARACENTESIS-RADIOLOGY Result Date: 11/29/2023 IR PARACENTESIS-RADIOLOGY 11/29/2023 7:52 AM Clinical History/Comments: ascites;R18.8:Other ascites Technique and Findings: After obtaining informed consent, sonographic guidance was used to gain percutaneous access to the abdominal ascites collection. All ultrasound images were recorded. A drainage catheter was advanced and a total of 1.7 liters fluid was drained without complication. Finally, the catheter was removed and the puncture site was sterilely bandaged. The patient tolerated procedurewell without complication. Successful, uncomplicated paracentesis using sonographic guidance yielding 1.7 L fluid. LUNA Arguelles, GRISEL Interventional Radiology I have personally reviewed the images and the above interpretation and agree with the findings. [id number] NM BONE WHOLE BODY Result Date: 11/25/2023 NM BONE WHOLE BODY 11/25/2023 11:00 AM Signs and Symptoms: pt w/ metastatic breast cancer; Breast cancer, invasive, stage IV, pre-therapy or re-staging; pt w/ metastatic breast cancer;C50.919:Primary malignant neoplasm of breast with metastasis (HCC-CMS) Comparison: CT abdomen/pelvis in 11/09/2023. Technique: Approximately two hours after the IV injection of 18.1 mCi Tc-99m MDP, anterior and posterior whole body bone images were obtained. Findings: Redemonstrated foci of increased radiotracer uptake within the mid and lower cervical spine, similar to prior. Foci of increased uptake within the left second rib and posterior right sixth rib are similar to prior, the latter of which corresponds to a pathologic fracture. There is a new focus of uptake within the left posterolateral ninth rib, adjacent to another pre-existing lesion medially. Redemonstrated focus of uptake involving the left T11 transverse process, similar to prior. Uptake at the L1-L2 disc space corresponding to discogenic en dplate changes is also similar to prior. Right iliac and proximal left humeral head lesions appear similar to prior. Periarticular uptake again seen within both feet, similar to prior. Faint diffuse uptake overlying the abdomen. 1. New focus of uptake involving the [...] the above interpretation and agreewith the findings. [id number] IR LIMITED U/S ABDOMEN Result Date: 11/14/2023 Limited ultrasound abdomen 11/14/23 Ascites Limited ultrasound of abdomen shows small amount of ascites. Paracentesis not performed. Limited ultrasound abdomen. LUNA Arguelles, GRISEL Interventional Radiology I have personally reviewed the images and the above interpretation and agree with the findings. [id number] Assessment Sunshine Padillawest 63 y.o. female with a PMH significant for metastatic breast cancer (to skin,lungs, liver, mediastinal nodes 2016), PE (apixaban), GERD who presented with complaint of abdominal pain and confusion, admitted to the medical oncology service for further work-up and management. Plan #Acute encephalopathy #Abdominal pain Etiology unclear, differential includes metabolic versus medication induced. 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 I personally reviewed laboratories studies, radiographic study reports, and prior records. I discussed the case with Halle Benito PA-C ED provider and Dr. Garcia (medicine resident). I agree with the findings and plan of care as documented in the note above except as noted with changes in blue. Anticipate require inpatient length of stay greater than two midnights. Laughing frequently during encounter and noting she feels confused Struggles to provide any coherent history beyond feeling poorly and but notes her has helped with medications and she took apixaban morning of presentation Bronchoscopy earlier this week without mention of oral lesions, agrees with sore throat when asked Recommend MR head to r/o metastatic disease Ascitic fluid not consistent with SBP and no other clear source of infection Possible this is delirium exacerbated by poor PO intake/dehydration, poor pain control/pain medications, and recent anesthesia Bambi Porter MD Hospitalist 12/16/2023 5:09 documented in this encounter Consult Notes * Daylin Lim, RD - 12/14/2023 0800 EDTAssociated Order(s): CONSULT NUTRITION Nutrition Assessment Note: Initial Visit Reason for Visit: Consult for poor po with ascites and cancer BACKGROUND DATA Sunshine Pleitez is a 63 y.o. female with PMH of metastatic breast cancer (to skin, lungs, liver, mediastinal nodes 2016), PE (apixaban), GERD who presented with complaint of abdominal pain andconfusion. (Per Renee Garcia MD) Subjective: Spoke with pt and . Vannessa reports that they eat a health, varied diet and nutrition has never been a problem with her until recently. Now she is experience lack of appetite, early satiety, andtaste changes. She is very motivated to make changes to improve her nutritional status. She has themost difficulty with eating in the 1-2 weeks leading up to the paracentesis procedures. She endorses significant weight loss in the month. Current Nutrition Orders: Regular Diet Boost/Ensure TID Physical Findings: Digestive Systems: Last BM None since admission Edema: WDL Skin: WDL, BSS 20 Allergies on file: Amoxicillin, Sulfa (sulfonamide antibiotics), and Sulfamethoxazole-trimethoprim Anthropometrics: Height: 152.4 cm (60) Wt Readings from Last 6 Encounters: 12/12/23 53.5 kg (118 lb) 12/09/23 55 kg (121 lb 4.1 oz) 11/29/23 59.9 kg (132 lb 1.6 oz) 11/23/23 62.6 kg (138 lb 0.1 oz) 11/08/23 63 kg (139 lb) 11/08/23 64.4 kg (141 lb 14.4 oz) BMI: Body mass index is 23.05 kg/m??. Weight Change: Difficult to assess d/t ascites, ~15-20 lb weight loss x 2 months Pertinent Medications: Current Facility-Administered Medications Medication Route Frequency acetaminophen (TYLENOL) tablet 650 mg oral Q6H PRN apixaban (ELIQUIS) tablet 5 mg oral BID lidocaine (PF) 10 mg/mL (1 %) injection 2 mg intradermal PRN lidocaine (PF) 10 mg/mL (1 %) injection 2 mg intradermal PRN morphine IV solution 3 mg intravenous Q4H PRN ondansetron (ZOFRAN-ODT) disintegrating tablet 4 mg oral Q6H PRN Or ondansetron (PF) (ZOFRAN) injection 4 mg intravenous Q6H PRN pantoprazole (PROTONIX) tablet 40 mg oral BEFORE BREAKFAST & DINNER polyethylene glycol 3350 (MIRALAX) packet 17 g oral Daily PRN predniSONE (DELTASONE) tablet 10 mg oral DAILY ramelteon (ROZEREM) tablet 8 mg oral AT BEDTIME PRN senna (SENOKOT) tablet 2 Tablet oral AT BEDTIME PRN venlafaxine (EFFEXOR-XR) XR capsule 150 mg oral DAILY Pertinent Labs: Lab Results Component Value Date/Time NA 135 (L) 12/14/2023 05:14 K 4.6 12/14/2023 05:14 CO2 25 12/14/2023 05:14 CL 107 12/14/2023 05:14 BUN 20 12/14/2023 05:14 CREATININE 0.54 12/14/2023 05:14 GLUCOSEPOC 96 05/30/2019 13:04 CALCIUM 7.6 (L) 12/14/2023 05:14 MG 2.3 12/14/2023 05:14 Lab Results Component Value Date/Time ALT 35 (H) 12/14/2023 05:14 AST 45 12/14/2023 05:14 ALKPHOS 287 (H) 12/14/2023 05:14 TBIL 1.6 (H) 12/14/2023 05:14 TRIG 149 10/11/2023 10:17 Estimated Nutrition Needs: 25-30 (using 53.5 kg) = 4404-7641 kcals/day 1.3-1.5 g/kg protein (using 53.5 kg) = 70-80 g protein/day 25-30 mL/kg fluid (using 53.5 kg) = 3287-2664 mL fluid/day Estimated Nutrition Intake: Establishing ASSESSMENT: Pt currently with Inadequate oral intake related to diagnosis as evidenced by ~10% weight loss x 2 months. Pt to d/c home later, so education was provided to pt and on ways to increase calories and protein in the diet to better meet nutritional needs in light of poor appetite and early satiety. Using whole dairy products, adding avocados to meals, adding cheese, salad dressings, sauces, whey andpeanut butter protein powders to puddings and drinks were all discussed. Provided pt with a High Calorie/Higher Fats Food List handout. Pt and very eager to learn and verbalized understanding. Nutrition Risk Level: High (1) MEDICAL NUTRITION THERAPY PLAN: - Continue Regular Diet - Encourage higher calorie foods to help maintain/improve nutrition status - Monitor PO intake DAYLIN LIM RD, CD (Call [facility] or use [employer] ([employer]) to page RD covering this unit) * Baron Aguirre MD - 12/13/2023 1430 EDT Oncology Consult (Initial) ASSESSMENT AND PLAN Assessment: Metastatic breast cancer - currently on enhertu and follows with Dr. Carreon who presented with acute encephalopathy. She was unable to provide a history and is now back to or close to her baseline. She was having mild word finding difficulty this morning and feels that has also improved. No changes to her care were made and her labs were largely unchanged from her baseline. Her imaging showed stable metastatic disease and a CT head showed no abnormalities, a brain MRI has not yet been obtained. Plan: -follow up with head MR -agree with [facility] Patient seen and discussed with Dr. Carla BLUM MD 12/13/2023 14:39 Oncology Attending Addendum Patient seen and examined today, and I have reviewed the case in detail with the fellow above. I have reviewed and corroborated the patients history, seen and examined the patient, and personally reviewed relevant laboratory data and radiographic films. My H+P concurs with that noted above. Past medical history, social history, and family history are as noted above. As planned, agree with proceeding with brain MRI as well. I participated in the medical decision making, and agree with the assessment and plans as outlined above. SUBJECTIVE Admit Date: 12/12/2023 Date of Service: 12/13/2023 PCP: Linda Blancas Reason for Consultation: Encephalopathy Consulting Provider: Dr. Myles HPI: Vannessa says she is feeling much better today and that yesterday was very scary. She has never felt that confused and off before. She remembers everything that happened and was distressed with how confusing things were. This morning she was having some difficulty with word finding, but feels that hasimproved just by being around her phenomenal nurse. We talked about the past 4 months and how things have been difficult. She has been struggling with intense fatigue and abdominal pain since August. She says she gets relief from each paracentesis and that the chemo has decreased her tumor markers, but says overall she has not had large improvements since starting enhertu. I brought up the possibility of having an aspira drain so she would be able to manage her ascites independently. She was interested in this, but her does not want to pursue this. He says he was told that drain is only used palliatively and she still has years left to live. She understands the need to pursue an MRI and that we can discuss next steps depending on what the MRI shows. 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 History of general anesthesia Immunosuppressed status ([facility]) 12.11.21 Breast cancer stage 4 Liver disease 10.12.23 Acsitiesm Lumbar radicular syndrome Nausea & vomiting Numbness Pulmonary embolism ([facility]) 11.11.23 Reactive airway disease 09.12.23 Shortness of [...] - [place] no complications BREAST SURGERY 08/2018 financial risk manager placed right breast - [place] no complications CARPAL TUNNEL RELEASE 200705/07/2019 beir block - no complications EYE SURGERY Partially detached retina FOOT SURGERY 05/2021 right big toe fused, right little toe screw FRACTURE SURGERY Morrell fractures in both feet,right big toe fusion LIPOMA RESECTION 2001 05/07/2019 [place] no complications [place] INSJ/RPLCMT BREAST IMPLANT FEB DAY MASTECTOMY Bilateral 05/30/2019 Exchange right tissue financial risk manager to silicone implant, exchange of left implant for matching performedby Tylor Boss MD at [facility] Social History Family History Social History Tobacco Use Smoking status: Never [...] 36 breast Cancer Paternal Aunt Breast cancer Problem List Patient Active Problem List Diagnosis Date Noted Metastasis from breast cancer ([facility]) 12/12/2023 Other ascites 12/12/2023 Acute pulmonary embolism without acute cor pulmonale ([facility]) 11/23/2023 Dry eye syndrome of both eyes 05/20/2023 Epiretinal membrane (ERM) of left eye 05/20/2023 Retinal tear of left eye 07/13/2022 PVD (posterior vitreous detachment), both eyes 07/13/2022 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 Osteopenia 05/23/2019 Encounter for palliative care 10/03/2017 Malignant neoplasm of female breast ([facility]) 07/07/2017 Primary malignant neoplasm of breast with metastasis ([facility]) 11/18/2016 IMO 4/1 Regulatory Update Breast lump 10/21/2016 Trigger thumb of left hand 05/21/2013 Personal history of malignant neoplasm of breast 02/25/2012 Chronic cough 11/23/2023 Gastroesophageal reflux disease 11/23/2023 S/P breast reconstruction, right 06/19/2019 Added automatically from request for surgery [id number] Lipoma of back 06/19/2019 Added automatically from request for surgery [id number] Plantar fat pad atrophy 02/14/2014 Left heel Plantar fasciitis of left foot 03/14/2013 Unstable right ankle 03/14/2013 Hallux rigidus of right foot 03/14/2013 Acquired absence of breast and nipple 09/16/2011 Lumbar radicular syndrome 01/18/2011 Acquired spondylolisthesis 01/18/2011 Lumbosacral spondylosis without myelopathy 01/18/2011 Menopausal and postmenopausal disorder 09/26/2009 ICD10 Update Auto Replacement Encounter for routine gynecological examination 09/26/2009 ICD10 Update Auto Replacement Premature ovarian failure 09/12/2009 Herpes simplex type 2 infection 09/12/2009 Papanicolaou smear of cervix with low grade squamous intraepithelial lesion (LGSIL) 03/11/2009 Admission Medications Medications Prior to Admission Medication Sig Dispense Refill Last Dose apixaban (ELIQUIS) 5 mg tablet Take 1 Tablet by mouth 2 times daily. 60 Tablet 11 12/13/2023 calcium-vitamin D (OS-CHAR D) 500 mg(1,250mg) -200 unit per tablet Take 1 Tablet by mouth 2 times daily with breakfast and dinner. cholecalciferol, Vitamin D3, 25 mcg (1,000 unit) tablet Take 1 Tablet by mouth daily. dexAMETHasone (DECADRON) 4 mg tablet Take 2 Tablets by mouth daily. Take on days 2 and 3 after chemotherapy. 12 Tablet 5 furosemide (LASIX) 20 mg tablet Take 1 Tablet by mouth daily. 30 Tablet 1 gabapentin (NEURONTIN) 100 mg capsule Take 2 Caps by mouth 2 times daily. (Patient taking differently: Take 3 Capsules by mouth 2 times daily. And 600 mg at night) 360 Cap 3 gabapentin (NEURONTIN) 600 mg tablet Take 1 Tablet by mouth every evening. MULTIVITS W-CA,FE,OTHER MIN (WOMEN'S DAILY FORMULA ORAL) Take by mouth daily. mv-mn/C/glutamin/lysin/dkrc686 ([place], ASCORBATE SODIUM, ORAL) Take by mouth as needed. (Patientnot taking: Reported on 11/03/2023) omeprazole (PRILOSEC) 40 mg capsule Take 1 Capsule by mouth 2 times daily. 60 Capsule 11 prasterone, dhea, (INTRAROSA) 6.[address] 6.5 mg vaginally daily. (Patient not taking: Reported on 06/16/2023) 28 Each 4 predniSONE (DELTASONE) 10 mg tablet Take 1 Tablet by mouth daily with breakfast. 30 Tablet 0 prochlorperazine (COMPAZINE) 10 mg tablet Take 1 Tablet by mouth every 6 hours as needed for Nausea. 30 Tablet 5 RED YEAST RICE EXTRACT ORAL Take 1,200 mg by mouth daily. 600mg 2x a day spironolactone (ALDACTONE) 50 mg tablet Take 1 Tablet by mouth daily. 30 Tablet 1 valACYclovir (VALTREX) 500 mg tablet Take 1 Tab by mouth daily. 90 Tab 3 venlafaxine (EFFEXOR-XR) 150 mg XR capsule Take 1 Cap by mouth daily. 90 Cap 3 Current Medications Current Facility-Administered Medications: acetaminophen (TYLENOL) tablet 650 mg, 650 mg, oral, Q6H PRN, Renee Garcia MD apixaban (ELIQUIS) tablet 5 mg, 5 mg, oral, BID, Renee Garcia MD, 5 mg at 12/13/23916 lidocaine (PF) 10 mg/mL (1 %) injection 2 mg, 2 mg, intradermal, PRN, Renee Garcia MD lidocaine (PF) 10 mg/mL (1 %) injection 2 mg, 2 mg, intradermal, PRN, Renee Garcia MD ondansetron (ZOFRAN-ODT) disintegrating tablet 4 mg, 4 mg, oral, Q6H PRN OR ondansetron (PF) (ZOFRAN) injection 4 mg, 4 mg, intravenous, Q6H PRN, Renee Garcia MD pantoprazole (PROTONIX) tablet 40 mg, 40 mg, oral, BID, Renee Garcia MD, 40 mg at 12/13/23916 polyethylene glycol 3350 (MIRALAX) packet 17 g, 17 g, oral, Daily PRN, Renee Garcia MD ramelteon (ROZEREM) tablet 8 mg, 8 mg, oral, AT BEDTIME PRN, Renee Garcia MD senna (SENOKOT) tablet 2 Tablet, 2 Tablet, oral, AT BEDTIME PRN, Renee Garcia MD Allergies Allergies Allergen Reactions Amoxicillin Other (See Comments) and Rash Red rash Sulfa (Sulfonamide Antibiotics) Hives Light lavender rash Sulfamethoxazole-Trimethoprim Rash OBJECTIVE Objective/Physical Exam: VS: Patient Vitals for the past 8 hrs: BP Pulse Heart Rate Resp Temp SpO2 O2 Device 12/13/23 1307 131/80 97 96 BPM 15 36.8 ??C (98.2 ??F) 97 % -- 12/13/23 0907 141/78 -- 99 BPM 18 36.7 ??C (98.1 ??F) 98 % -- 12/13/23 0700 -- -- -- -- -- -- None Pain: No data found. Weight: Weight : 53.5 kg (118 lb) Body mass index is 23.05 kg/m??. Exam: General: Alert and oriented, in no acute distress HEENT: no scleral icterus, EOMI Neck: Supple CVS: warm and well perfused Resp: breathing comfortably on room air Extremities: No cyanosis or edema Neuro: No focal sensory or motor neurological deficits appreciated Skin: No rashes, lesions, petechiae on visible skin Labs: reviewed AURELIANO BLUM MD 12/13/2023 14:30 documented in this encounter ED Notes * Tavon Lynch - 12/12/2023 1356 EDT I, TAVON LYNCH, notified Dr. BAER of LACTIC ACID OF 2.9 on 12/12/2023 at 13:56. * Linda Garza MD - 12/12/2023 1255 EDT ED Triage Note- Virtual Physician in Triage A medical screening exam was performed. Chief complaint: confusion History: Stage 4 breast cancer. Terrible pain per for 2-2.5 days. Thinks she probably needs paracentesis. Decreased PO withvomiting yesterday. Also is disoriented. Weight has dropped from 135 to 118 in a few weeks despite fluid going up. Diuretics no longer as effective. No fevers. No diarrhea. Last para was about 2 weeks ago. See. Note from Dr. Isidro in chart. Limited Exam via Telehealth: Cachectic, jaundiced. Awake, alert, no distress. Differential Diagnosis: Obstructive juandice, intrinsic liver disease, dehydration, ascites, SBP. Plan: Interventions: labs, pain meds Hold fluids until eval in person. Face to face evaluation of patient with ED team. Patient informed of next steps and anticipated wait to be seen by team on site. The concept of ???Telemedicine?? has been described to the patient. Patient has been informed of the anticipated benefits and possible risks. Patient understands the information provided regarding telemedicine, has had the opportunity to ask questions about this information, and all questions havebeen answered to patient's satisfaction. Patient consents for the use of telemedicine in his/her/their medical care and authorizes the transmission of any relevant medical information to providers and their staff involved in patient's medical or mental health care. Additionally, this patient and/or surrogate provided verbal consent to be evaluated by a virtual [id number]. Today's visit was provided through telemedicine video conferencing. The patient was located at the [facility] and the provider was located in their home office in [place]. * Micky Murdock - 12/12/2023 1155 EDT TCALL: LUIS MOTT. VANNESSA, 62 REFERRED BY [facility], HX METASTATIC BREAST CANCER, LIVER/LUNG METS, TWO DAYS OF N/V ABD PN, LAST TREATMENT WAS 11/28 ASCITES, WITH FLUID PULLED TWO WEEKS,(EF) * Halle Benito PA-C - 12/12/2023 1154 EDTAssociated Order(s): Paracentesis Emergency Department Visit Medical Decision Making Vannessa Bueno Ginjonnabertha is a 63 y.o. female with a history of metastatic breast cancer s/p reconstruction on chemotherapy, s/p recent port placement (11/03/23), and recent [facility] presentation(10/14/23) for bowel obstruction r/o, found to have ascites who presents to the ED for increased confusion and abdominal pain over the past few days without any infectious symptoms. She last took her dose of chemotherapy for her metastatic breast cancer last week. Has had nausea but no vomiting. On exam her vital signs are stable, she appears chronically ill but nontoxic. Her abdomen is soft with tenderness on the epigastric region has some mild distention. Her neurologic exam is nonfocal. Differentials include SBP, ascites, pancreatitis, biliary etiology, other intra- abdominal infection, electrolyte abnormality, progression of metastatic disease, other. Will obtain labs and a CT scan of the head and abdomen for more information. Elevated lactic acid at 2.9, mild hypokalemia but stable BUN and creatinine. Bilirubin is slightly elevated from prior. Mild transaminitis also noted but roughly stable since November 28. CBC does not demonstrate any leukocytosis, and has stable hemoglobin and hematocrit. Viral panel is negative. No acute findings noted on the abdominal and head CT scan aside from known ascites. Diagnostic paracentesis is performed to rule out SBP, which she has tolerated well. Patient is provided with ceftriaxone and vancomycin for her elevated lactic acid which does downtrend with repeat testing. Patient is ultimately admitted for observation of her symptoms in light of her active chemotherapy treatment for metastatic breast cancer. Patient understands and agrees these plans. Medical Decision Making Problems Addressed: Other ascites: complicated acute illness or injury Amount and/or Complexity of Data Reviewed Labs: ordered. Radiology: ordered. Risk Prescription drug management. Decision regarding hospitalization. Final diagnoses: Other ascites Disposition: Admitted Chief complaint: Confusion, abdominal pain HPI Vannessa Pleitez is a 63 y.o. female with a history of metastatic breast cancer s/p reconstruction on chemotherapy, s/p recent port placement (11/03/23), and recent [facility] presentation(10/14/23) for bowel obstruction r/o, found to have ascites who presents to the ED for increased confusion and abdominal pain over the past few days. Patient reports upper abdominal pain with nausea and no vomiting for the past few days, roughly around the same time that her confusion started. Her notes that the confusion has never happened before; patient describes this as brain fog and word finding difficulty. No recent head injuries. No fevers, chills or sweats. No urinary symptoms or bowel movement changes. She feels like her abdomen is slightly more distended over the past few days, and has required paracenteses in the past. She last received chemotherapy last week. She has been taking her diuretics as prescribed. No cardiopulmonary symptoms or other infectious symptoms. History was provided by: Patient, Records reviewed include: Oncology note from November 19, 2023 for metastatic breast cancer to skin, lungs, liver and mediastinal nodes with start of Enhertu and further lab and procedure workup. Patient's pertinent PMH, FH, SH were reviewed and edited as necessary. Nursing notes reviewed. A medical screening exam was performed. Physical Exam BP 134/86 (BP Cuff Location: Left arm, BP Patient Position: Sitting) Pulse 97 Temp 36.7 ??C (98.1 ??F) (Oral) Resp 15 Ht 152.4 cm (60) Wt 53.5 kg (118 lb) SpO2 98% BMI 23.05 kg/m?? Physical Exam Constitutional: Comments: Appears chronically ill, cachectic, nontoxic Eyes: General: No scleral icterus. Extraocular Movements: Extraocular movements intact. Pupils: Pupils are equal, round, and reactive to light. Cardiovascular: Rate and Rhythm: Normal rate and regular rhythm. Pulmonary: Effort: Pulmonary effort is normal. Breath sounds: Normal breath sounds. Abdominal: Comments: Mild distention, tender palpation along the epigastric region but no rebound tenderness, guarding or rigidity. Musculoskeletal: Comments: Trace pitting edema in the lower extremities bilaterally. No calf pain or asymmetric swelling Neurological: Mental Status: She is alert and oriented to person, place, and time. Cranial Nerves: No cranial nerve deficit. Comments: Moving all extremities appropriately, right is equal intact in the upper and lower extremities Psychiatric: Mood and Affect: Mood normal. Behavior: Behavior normal. Procedures Paracentesis Performed by: Halle Benito PA-C Authorized by: Halle Benito PA-C Consent: Consent obtained: Verbal Risks discussed: Bleeding, bowel perforation, infection and pain [place] protocol: Procedure explained and questions answered to patient or proxy's satisfaction: yes Imaging studies available: yes Site/side marked: yes Patient identity confirmed: Verbally with patient Pre-procedure details: Procedure purpose: Diagnostic Anesthesia: Anesthesia method: Local infiltration Local anesthetic: Lidocaine 1% w/o epi Procedure details: Needle gauge: 18 Ultrasound guidance: yes Puncture site: Right suprapubic. Fluid appearance: Yellow Post-procedure details: Procedure completion: Tolerated well, no immediate complications Associated attestation - Jackie Kapadia MD - 12/17/2023 1621 EDT I reviewed this case with the Advanced Practice Provider. I personally made/approved the managementplan for this patient and take responsibility for the patient management. I evaluated this patient [id number] and provided a substantive portion of the patient's care. My personal evaluation included a face to face history and physical exam, review of nursing notes, review of vital signs, review of relevant records, and review of diagnostic data. Based on all of these elements I formulated, and/or participated substantively in the medical decision making, including assessing the level of risk of the patient's complaints and condition, establishing a diagnosis and/or selecting management options. Final diagnoses: Other ascites documented in this encounter Miscellaneous Notes * Plan of Care - Caroline Devine RN - 12/14/2023 1006 EDT Data: pt admitted w/ metastatic breast CA and encephalopathy. Pt A/Ox3 at start of shift, denies having any pain this morning, still endorsing intermittent nausea. Action: medicated pt per eMAR--meds given w/ meal per pt request. Assisted pt OOB to BR PRN and clustered care to promote rest. Continued to monitor telemetry. Response: pt still denying pain, A/Ox3. Pt was able to shower this morning, reported feeling a little nauseous while showering and after breakfast, but nausea resolved on it's own. Pt only able to eat 25% breakfast (1 yogurt). Pt now resting in bed, looking forward to friend visiting in late morning. VSS on RA, Call pak in reach, [facility]. CAROLINE DEVINE RN 12/14/2023 10:06 * Plan of Care - Sandra Cisneros RN - 12/13/2023 0323 EDT FOUR EYES SKIN ASSESSMENT Four Eyes skin assessment was performed on admission to the unit by Sandra Cisneros RN and Donya Mahmood RN. Patient has the following devices at the time of this assessment: Peripheral IV and O2 sat probe. Device related pressure injury present? No All skin intact verified by: Sandra Cisneros, RN. Last Nikolai Score: 19 Pt is A/Ox2 with some difficulty with word finding. IVAD accessed. Bed alarm on. Labs drawn. Pt is resting in bed will call pak within reach. Will continue to monitor. BP 135/80 (BP Cuff Location: Right arm, BP Patient Position: Supine) Pulse 100 Temp 36.6 ??C (97.9 ??F) (Oral) Resp 16 Ht 152.4 cm (60) Wt 53.5 kg (118 lb) SpO2 96% BMI 23.05 kg/m?? 12/13/2023 6:03 documented in this encounter Plan of Treatment Upcoming Encounters Date Type Department Care Team (Late st Contact Info) Description 04/02/2024 10:30 EDT Appointment [facility] Interventional Radiology Unit [address] [place] [address] 04/02/2024 15:15 EDT Office Visit [facility] Surgical Oncology - [address] [phone] Adolfo Carreno MD [address] [place] [address] [phone] 04/05/2024 9:30 EDT Telemedicine [facility] - [facility] Palliative Care Services [address] [place] [address] [phone] Chichi Woods MD [address] [place] [address] [phone] 04/11/2024 15:00 EDT Telemedicine [facility] Hematology & Oncology [address] [phone] Alisson Carreon MD [address] [place] [address] [phone] 04/13/2024 13:30 EDT Appointment [facility] Hematology & Oncology [address] [phone] 04/13/2024 14:00 EDT Appointment [facility] Hematology & Oncology [address] [address] 04/16/2024 10:00 EST Telemedicine [facility] - [facility] Palliative Care Services [address] [place] [address] [phone] Chichi Woods MD [address] [place] [address] [phone] 04/24/2024 9:00 EST Appointment [facility] Radiology CT Outpatient - [address] [phone] 04/24/2024 11:00 EST Appointment [facility] Breast Imaging - [facility] [address] [place] [address] [place], [place] [phone] 04/27/2024 12:00 EST Appointment [facility] Hematology & Oncology [address] [phone] 05/02/2024 15:00 EST Telemedicine [facility] Hematology & Oncology - [address] [phone] Alisson Carreon MD [address] [place] [address], Level [address] [place] [phone] 05/04/2024 10:15 EST Ancillary Procedure [facility] Cardiology - [place] [address] 05/04/2024 11:30 EST Appointment [facility] Hematology & Oncology - [address] [phone] 05/04/2024 12:00 EST Appointment [facility] Hematology & Oncology - [address] [address] 06/12/2024 13:00 EST Appointment [facility] Radiology CT - [facility] [address] [place] [address] Scheduled Referrals Name Type Priority Associated Diagnoses Order Schedule AMB CONS/FOLLOW UP PRIMARY CARE PHYSICIAN - EXTERNAL Outpatient Referral Routine/Next Available Other ascites 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) [C79.9, C50.919] Expected: 01/14/2024 (Approximate), Expires: 12/13/2024 AMB CONS/FOLLOW UP ONCOLOGY Outpatient Referral Routine/Next Available Other ascites 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) [C79.9, C50.919] Expected: 01/14/2024 (Approximate), Expires: 12/13/2024 documented as of this encounter Procedures Procedure Name Priority Date/Time Associated Diagnosis Comments ECG REPORT - SCANNED 12/21/2023 11:19 EDT COMPLETE BLOOD COUNT AND DIFFERENTIAL Routine 12/14/2023 5:14 EDT MAGNESIUM Routine 12/14/2023 5:14 EDT GGT Add-On 12/14/2023 5:14 EDT COMPREHENSIVE METABOLIC PANEL (CMP) Routine 12/14/2023 5:14 EDT MR HEAD W WO CONTRAST Routine 12/13/2023 16:59 EDT AMMONIA Routine 12/13/2023 10:33 EDT DIFFERENTIAL, AUTOMATED MANUAL Today 12/13/2023 5:43 EDT COMPLETE BLOOD COUNT AND DIFFERENTIAL Routine 12/13/2023 5:43 EDT MAGNESIUM Routine 12/13/2023 5:43 EDT COMPREHENSIVE METABOLIC PANEL (CMP) Routine 12/13/2023 5:43 EDT FLUID CELL COUNT Routine 12/12/2023 19:3 5 EDT FLUID DIFFERENTIAL Today 12/12/2023 19 :35 EDT FLUID CELL COUNT Routine 12/12/2023 19:3 5 EDT AFB CULTURE/SMEAR, OTHER Routine 12/12/2023 19:34 EDT ANAEROBE CULTURE/SMEAR(INC. AEROBES), OTHER Routine 12/12/2023 19:34 EDT PROTIME STAT 12/12/2023 18:23 EDT LACTIC ACID STAT 12/12/2023 17:[address] HEAD WO CONTRAST STAT 12/12/2023 1 5:[address] ABDOMEN PELVIS W CONTRAST STAT 12/12/2023 15:53 EDT SARS COV2, FLU A/B, RSV DETECT BY PCR STAT 12/12/2023 14:44 EDT BACTERIAL CULTURE, BLOOD STAT 12/12/2023 14:33 EDT LACTIC ACID WITH REFLEX - USE FOR INITIAL SEPSIS EVALUATION STAT 12/12/2023 13:26 EDT BACTERIAL CULTURE, BLOOD STAT 12/12/2023 13:26 EDT BLOOD GASES, VENOUS STAT 12/12/2023 1 3:26 EDT COMPLETE BLOOD COUNT AND DIFFERENTIAL STAT 12/12/2023 13:26 EDT LIPASE STAT 12/12/2023 13:26 EDT COMPREHENSIVE METABOLIC PANEL (CMP) STAT 12/12/2023 13:26 EDT ED PARACENTESIS Routine 12/12/2023 11:54 EDT ED PARACENTESIS Routine 12/12/2023 11:54 EDT documented in this encounter Results * ECG REPORT - SCANNED (12/21/2023 11:19 EDT) 12/21/2023 11:1 9 EDT 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 ?? LUNA Arguelles, PANitaC Interventional Radiology I have personally reviewed the images and the above interpretation and agree with the findings. [id number] Narrative 12/20/2023 10:33 EDT IR PARACENTESIS-RADIOLOGY ??12/20/2023 [...] procedure well without complication. Resulting Agency Comment [id number] Procedure Note Johnson Kwon MD - 12/20/2023 [...] the above interpretation andagree with the findings. [id number] Jackie Juan MD IMG IR ORDERABLES * (ABNORMAL) GGT (12/14/2023 5:14 EDT) GGT 418(H) <44 U/L 12/14/2023 13:18 EDT [facility] Blood BLOOD SAMPLE TAKEN FROM CENTRAL LINE / Unknown Port / Unknown 12/14/2023 5:14 EDT 12/14/2023 5:28 EDT Jackie Juan MD CHEMISTRY & BLOOD G ORDERABLES [facility] [address] [place] [phone] * (ABNORMAL) COMPREHENSIVE METABOLIC PANEL (CMP) (12/14/2023 5:14 EDT) Sodium 135(L) 136 - 145 mmol/L 12/14/2023 6:00 EDT [facility] Potassium 4.6 3.5 - 5.0 mmol/L 12/14/2023 6:00 EDT [facility] Chloride 107 96 - 110 mmol/L 12/14/2023 6:00 EDT [facility] CO2 Total 25 22 - 32 mmol/L 12/14/2023 6:00 EDT [facility] Glucose 103(H) 70 - 99 mg/dl 12/14/2023 6:00 T [facility] BUN 20 10 - 26 mg/dL 12/14/2023 6:00 [facility] Creatinine 0.54 0.52 - 1.04 mg/dL 12/14/2023 6:00 [facility] eGFR 104 >60 mL/min/1.7 3m2 12/14/2023 6:00 [facility] Total Protein 4.7(L) 6.3 - 8.2 g/dL 12/14/2023 6:00 T [facility] Albumin 2.4(L) 3.4 - 4.9 g/dL 12/14/2023 6:00 [facility] Alkaline Phosphatase 287(H) 38 - 126 U/L 12/14/2023 6:00 [facility] AST 45 15 - 46 U/L 12/14/2023 6:00 [facility] ALT 35(H) <35 U/L 12/14/2023 6:00 [facility] Bilirubin, Total 1.6(H) <1.4 mg/dL 12/14/19 6:00 [facility] Calcium 7.6(L) 8.5 - 10.5 mg/dL 12/14/2023 6:00 [facility] Albumin/Globulin Ratio 1.0 1.0 - 2.5 12/14/2023 6:00 [facility] Anion Gap 3(L) 5 - 14 mmol/L 12/14/2023 6:00 [facility] Blood BLOOD SAMPLE TAKEN FROM CENTRAL LINE / Unknown Port / Unknown 12/14/2023 5:14 EDT 12/14/2023 5:28 EDT Renee Garcia MD CHEMISTRY & BLOOD GA S ORDERABLES [facility] [address] [place] [address] * (ABNORMAL) COMPLETE BLOOD COUNT AND DIFFERENTIAL (12/14/2023 5:14 EDT) WBC 4.94 4.00 - 12.40 K/cmm 12/14/2023 5:40 [facility] RBC 2.61(L) 3.86 - 5.04 M/cmm 12/14/2023 5:40 [facility] Hemoglobin 8.8(L) 11.6 - 15.2 g/dL 12/14/2023 5:40 [facility] HCT 25.9(L) 34.9 - 44.4 % 12/14/2023 5:40 [facility] MCV 99(H) 81 - 98 fL 12/14/2023 5:40 [facility] MCH 33.7(H) 26.7 - 33.3 pg 12/14/2023 5:40 [facility] MCHC 34.0 32.1 - 35.9 g/dL 12/14/2023 5:40 [facility] RDW-CV 22.5(H) <14.7 % 12/14/2023 5:40 [facility] RDW-SD 77.8(H) <50.4 fl 12/14/2023 5:40 [facility] PLT 261 141 - 377 K/cmm 12/14/2023 5:40 [facility] MPV 10.9 9.5 - 12.7 fL 12/14/2023 5:40 [facility] % Neutrophils 41.2 % 12/14/2023 5:40 [facility] % Lymphocytes 28.7 % 12/14/2023 5:40 [facility] % Monocytes 26.7 % 12/14/2023 5:40 [facility] % Eosinophils 1.6 % 12/14/2023 5:40 [facility] % Basophils 0.2 % 12/14/2023 5:40 [facility] % Immature Grans 1.6 % 12/14/19 5:40 [facility] Absolute Neutrophils 2.03(L) 2.20 - 8.85 K/cmm 12/14/2023 5:40 EDT [facility] Absolute Lymphocytes 1.42 1.09 - 3.30 K/cmm 12/14/2023 5:40 EDT [facility] Absolute Monocytes 1.32(H) 0.10 - 0.80 K/cmm 12/14/2023 5:40 EDT [facility] Absolute Eosinophils 0.08 0.03 - 0.61 K/cmm 12/14/2023 5:40 EDT [facility] ABS Basophils 0.01 0.01 - 0.11 K/cmm 12/14/2023 5:40 EDT [facility] Absolute Immature Grans 0.08(H) 0.00 - 0.06 K/cmm 12/14/2023 5:40 EDT [facility] Type of Differential: Auto 12/14/2023 5:40 EDT [facility] Blood BLOOD SAMPLE TAKEN FROM CENTRAL LINE / Unknown Port / Unknown 12/14/2023 5:14 EDT 12/14/2023 5:28 EDT Renee Garcia MD PACKAGES & DNA PROBE ORDERABLES Performing Organization Address [facility] Co de Phone Number [facility] [address] [place] [address] * MAGNESIUM (12/14/2023 5:14 EDT) Magnesium 2.3 1.7 - 2.8 mg/dL 12/14/2023 6:00 EDT [facility] Blood BLOOD SAMPLE TAKEN FROM CENTRAL LINE / Unknown Port / Unknown 12/14/2023 5:14 EDT 12/14/2023 5:28 EDT Renee Garcia MD CHEMISTRY & BLOOD GA S ORDERABLES Performing Organization Address [facility] Co de Phone Number [facility] [address] [place] [address] * MR HEAD W WO CONTRAST (12/13/2023 16:59 EDT) Anatomical Region Laterality Modality Head Magnetic Resonan ce 12/13/2023 17:3 5 EDT Impressions 12/13/2023 17:35 EDT No evidence of intracranial metastatic disease [id number] Narrative 12/13/2023 17:35 EDT EXAM: MRI HEAD WO/W CONTRAST HISTORY: AMS in a patient with metastatic breast cancer ?? TECHNIQUE: MRI head without and with intravenous gadolinium contrast. Structured report code: [id number] COMPARISON: CT 12/12/2023,: MRI 12/30/2016 FINDINGS: PARENCHYMA: No evidence of infarction. No parenchymal hemorrhage. No mass or shift of structures across the midline. ??No abnormal enhancement. EXTRA-AXIAL SPACES: No extra-axial collection. No extra-axial mass. VENTRICLES: No hydrocephalus. VESSELS: The flow voids and intravascular enhancement are present. BONES: Diffuse T2/FLAIR hyperintensity in the bone marrow may represent mild parotic marrow in the setting of anemia. No discrete concerning lesion. Degenerative changes of the temporomandibular joints. ORBITS: No significant abnormality. PARANASAL SINUSES/MASTOID AIR CELLS: Predominantly clear. EXTRACRANIAL SOFT TISSUES: Unremarkable. Resulting Agency Comment [id number] Procedure Note Eugene Painting MD - 12/13/2023 EXAM: MRI HEAD WO/W CONTRAST HISTORY: AMS in a patient with metastatic breast cancer TECHNIQUE: MRI head without and with intravenous gadolinium contrast.Structured report code: [id number] COMPARISON: CT 12/12/2023,: MRI 12/30/2016 FINDINGS: PARENCHYMA: No evidence of infarction. No parenchymal hemorrhage. No mass or shift ofstructures across the midline. No abnormal enhancement. EXTRA-AXIAL SPACES: No extra-axial collection. No extra-axial mass. VENTRICLES: No hydrocephalus. VESSELS: The flow voids and intravascular enhancement are present. BONES: Diffuse T2/FLAIR hyperintensity in the bone marrow may represent mildparotic marrow in the setting of anemia. No discrete concerning lesion.Degenerative changes of the temporomandibular joints. ORBITS: No significant abnormality. PARANASAL SINUSES/MASTOID AIR CELLS: Predominantly clear. EXTRACRANIAL SOFT TISSUES: Unremarkable. IMPRESSION No evidence of intracranial metastatic disease [id number] Hugo Tran DO IMG MRI ORDERABLES * AMMONIA (12/13/2023 10:33 EDT) Ammonia 21 <34 umol/L 12/13/2023 10:52 EDT [facility] Blood BLOOD SAMPLE TAKEN FROM CENTRAL LINE / Unknown Port / Unknown 12/13/2023 10:33 EDT 12/13/2023 10:39 EDT Hugo Tran DO CHEMISTRY & BLOOD GA S ORDERABLES [facility] [address] [place] [address] * (ABNORMAL) DIFFERENTIAL, AUTOMATED MANUAL (12/13/2023 5:43 EDT) % Neutrophils 51.3 Not Indicated % 12/13/2023 6:31 [facility] % Lymphocytes 29.2 Not Indicated % 12/13/2023 6:31 [facility] % Monocytes 13.3 Not Indicated % 12/13/2023 6:31 [facility] % Eosinophils 3.5 Not Indicated % 12/13/2023 6:31 [facility] % Basophils 1.8 Not Indicated % 12/13/2023 6:31 [facility] % Myelocytes 0.9 Not Indicated % 12/13/2023 6:31 [facility] Absolute Neutrophils 2.31 2.20 - 8.85 K/cmm 12/13/2023 6:31 [facility] Absolute Lymphocytes 1.31 1.09 - 3.30 K/cmm 12/13/2023 6:31 [facility] Absolute Monocytes 0.60 0.10 - 0.80 K/cmm 12/13/2023 6:31 [facility] Absolute Eosinophils 0.16 0.03 - 0.61 K/cmm 12/13/2023 6:31 [facility] ABS Basophils 0.08 0.01 - 0.11 K/cmm 12/13/2023 6:31 [facility] Absolute Myelocytes 0.04(H) <=0.00 K/cmm 12/13/2023 6:31 [facility] Type of Differential: Manual 12/13/2023 6:31 [facility] Blood BLOOD SAMPLE TAKEN FROM CENTRAL LINE / Unknown Port / Unknown 12/13/2023 5:43 EDT 12/13/2023 5:51 EDT Renee Garcia MD HEMATOLOGY & PF4 ORD ERABLES [facility] [address] [place] [address] * (ABNORMAL) COMPREHENSIVE METABOLIC PANEL (CMP) (12/13/2023 5:43 EDT) Sodium 136 136 - 145 mmol/L 12/13/2023 6:27 [facility] Potassium 4.6 3.5 - 5.0 mmol/L 12/13/2023 6:27 [facility] Chloride 109 96 - 110 mmol/L 12/13/2023 6:27 [facility] CO2 Total 25 22 - 32 mmol/L 12/13/2023 6:27 [facility] Glucose 87 70 - 99 mg/dl 12/13/2023 6:27 [facility] BUN 24 10 - 26 mg/dL 12/13/2023 6:27 [facility] Creatinine 0.57 0.52 - 1.04 mg/dL 12/13/2023 6:27 [facility] eGFR 103 >60 mL/min/1.7 3m2 12/13/2023 6:27 [facility] Total Protein 4.7(L) 6.3 - 8.2 g/dL 12/13/2023 6:27 [facility] Albumin 2.3(L) 3.4 - 4.9 g/dL 12/13/2023 6:27 [facility] Alkaline Phosphatase 278(H) 38 - 126 U/L 12/13/2023 6:27 [facility] AST 46 15 - 46 U/L 12/13/2023 6:27 [facility] ALT 36(H) <35 U/L 12/13/2023 6:27 [facility] Bilirubin, Total 1.8(H) <1.4 mg/dL 12/13/19 6:27 [facility] Calcium 7.7(L) 8.5 - 10.5 mg/dL 12/13/2023 6:27 [facility] Albumin/Globulin Ratio 1.0 1.0 - 2.5 12/13/2023 6:27 [facility] Anion Gap 2(L) 5 - 14 mmol/L 12/13/2023 6:27 [facility] Blood BLOOD SAMPLE TAKEN FROM CENTRAL LINE / Unknown Port / Unknown 12/13/2023 5:43 EDT 12/13/2023 5:50 EDT Renee Garcia MD CHEMISTRY & BLOOD GA S ORDERABLES Performing Organization Address City/State/[facility] Co de Phone Number [facility] [address] [place] [address] * (ABNORMAL) COMPLETE BLOOD COUNT AND DIFFERENTIAL (12/13/2023 5:43 EDT) WBC 4.50 4.00 - 12.40 K/cmm 12/13/2023 6:00 [facility] RBC 2.74(L) 3.86 - 5.04 M/cmm 12/13/2023 6:00 [facility] Hemoglobin 9.2(L) 11.6 - 15.2 g/dL 12/13/2023 6:00 [facility] HCT 27.0(L) 34.9 - 44.4 % 12/13/2023 6:00 [facility] MCV 99(H) 81 - 98 fL 12/13/2023 6:00 EDT [facility] MCH 33.6(H) 26.7 - 33.3 pg 12/13/2023 6:00 EDT [facility] MCHC 34.1 32.1 - 35.9 g/dL 12/13/2023 6:00 EDT [facility] RDW-CV 22.4(H) <14.7 % 12/13/2023 6:00 EDT [facility] RDW-SD 78.5(H) <50.4 fl 12/13/2023 6:00 EDT [facility] PLT 222 141 - 377 K/cmm 12/13/2023 6:00 EDT [facility] MPV 10.8 9.5 - 12.7 fL 12/13/2023 6:00 EDT [facility] Nucleated Red Blood Cells 1(H) <=0 /100WBC'S 12/13/2023 6:00 EDT [facility] Blood BLOOD SAMPLE TAKEN FROM CENTRAL LINE / Unknown Port / Unknown 12/13/2023 5:43 EDT 12/13/2023 5:51 EDT Renee Garcia MD PACKAGES & DNA PROBE ORDERABLES Performing Organization Address City/[facility]/ZIP Co de Phone Number [facility] [address] [place] [phone] * MAGNESIUM (12/13/2023 5:43 EDT) Magnesium 2.2 1.7 - 2.8 mg/dL 12/13/2023 6:27 EDT [facility] Blood BLOOD SAMPLE TAKEN FROM CENTRAL LINE / Unknown Port / Unknown 12/13/2023 5:43 EDT 12/13/2023 5:50 EDT Renee Garcia MD CHEMISTRY & BLOOD GA S ORDERABLES Performing Organization Address City/[facility]/ZIP Co de Phone Number [facility] [address] [place] [address] * FLUID DIFFERENTIAL (12/12/2023 19:35 EDT) Neutrophils Fluid Relative 6 % 12/12/2023 21:41 EDT [facility] Lymphocytes Fluid Relative 35 % 12/12/2023 21:41 EDT [facility] [place]/Macrophage 53 % 21:41 EDT [facility] Mesothelial Cells Fluid Relative 6 % 12/12/2023 21:41 EDT [facility] Fluid ASCITIC FLUID / Unknown 12/12/2023 19:35 EDT 12/12/2023 19:47 EDT Halle Benito PA-C GEN LAB UNIT COLLECT ORDERABLES [facility] [address] [place] [address] * FLUID CELL COUNT (12/12/2023 19:35 EDT) RBC, Fluid <10,000 /cmm 12/12/2023 20:23 EDT [facility] Nucleated Cells, fluid 74 /cmm 12/12/2023 20:23 EDT [facility] Comment, fluid Clear Yellow 12/12/2023 20:23 EDT [facility] Comment:Straw colored. Fluid ASCITIC FLUID / Unknown 12/12/2023 19:35 EDT 12/12/2023 19:47 EDT Halle Benito PA-C HEMATOLOGY & PF4 ORD ERABLES [facility] [address] [place] [address] * ANAEROBE CULTURE/SMEAR(INC. AEROBES), OTHER (12/12/2023 19:34 EDT) Organism ID No Growth 12/17/2023 11:16 EDT [facility] Smear No Neutrophils Seen 12/17/2023 11:16 EDT [facility] Smear No bacteria seen 12/17/2023 11:16 EDT [facility] Fluid ASCITIC FLUID / Unknown 12/12/2023 19:34 EDT 12/12/2023 19:47 EDT Halle Benito PA-C MICROBIOLOGY - GENER AL ORDERABLES Performing Organization Address [facility] Co de Phone Number [facility] [address] [place] [address] * AFB CULTURE/SMEAR, OTHER (12/12/2023 19:34 EDT) Organism ID No acid-fast bacilli isolated VITEK SUSCEPTIBILITY 02/07/2024 11:27 EDT [facility] AFB Smear No Acid Fast Bacilli Seen 02/07/2024 11:27 EDT [facility] Fluid ASCITIC FLUID / Unknown 12/12/2023 19:34 EDT 12/12/2023 19:47 EDT Halle Benito PA-C MICROBIOLOGY - GENER AL ORDERABLES Performing Organization Address [facility] de Phone Number [facility] [address] [place] [phone] * (ABNORMAL) PROTIME (12/12/2023 18:23 EDT) I.N.R. 1.2(H) 0.9 - 1.1 Ratio 12/12/2023 18:51 EDT [facility] Pro Time 13.0(H) 9.7 - 12.8 secs 12/12/2023 18:51 EDT [facility] Blood VENOUS BLOOD / Unknown Venipuncture / Unknown 12/12/2023 18:23 EDT 12/12/2023 18:26 EDT Narrative [facility] - 12/12/2023 18:51 EDT Moderate Intensity Coumadin INR = 2.0-3.0 Adjustments in anticoagulant therapy dose should be based on the INR and NOT on the Protime. Halle Benito PA-C HEMATOLOGY & PF4 ORD ERABLES Performing Organization Address City/[facility]/ZIP Co de Phone Number [facility] [address], [place] [id number] * LACTIC ACID (12/12/2023 17:40 EDT) Lactic Acid 1.3 <=2.0 mmol/L 12/12/2023 18:01 EDT [facility] Blood VENOUS BLOOD / Unknown Venipuncture / Unknown 12/12/2023 17:40 EDT 12/12/2023 17:46 EDT Linda Garza MD CHEMISTRY & BLOOD GA S ORDERABLES Performing Organization Address [facility] Co de Phone Number [facility] [address] [place] [address] * CT ABDOMEN PELVIS W CONTRAST (12/12/2023 15:53 EDT) Anatomical Region Laterality Modality Body, Abdomen, Pelvis, Abdomen and Pelvis Computed Tomography 12/12/2023 16:3 5 EDT Impressions 12/12/2023 16:35 EDT 1. ??Hyperenhancement of the mucosa involving the ileum suspicious for enteritis. 2. ??Unchanged hepatic metastatic disease compared to exam from 11/09/2023. 3. ??Incidentally noted bilateral pulmonary emboli, unchanged from exams on 11/09/2023. 4. ??Sequela of portal hypertension, including moderate to large volume ascites. 5. ??Lytic right iliac bone lesion, unchanged. 6. ??Cholelithiasis. I have personally reviewed the images and the above interpretation and agree with the findings. [id number] Narrative 12/12/2023 16:[address] ABDOMEN PELVIS W CONTRAST ??12/12/2023 3:38 PM Signs and Symptoms/Comments: Upper abdominal pain with nausea but no vomiting over the past few days, actively being treated for metastatic breast cancer; Upper abdominal pain with nausea but no vomiting over the past few days, actively being treated for metastatic breast cancer; Technique: CT of the abdomen and pelvis was performed following the administration of intravenous contrast. This CT used either dose modulation and/or iterative reconstruction techniques to lower radiation dose. Comparison: CT abdomen pelvis 11/09/2023, 10/14/2023. Findings: Lower chest: Incidentally noted bilateral pulmonary emboli (series 201 image 13, 15), which is present and unchanged compared to prior exam on 11/09/2023. Liver: Diffuse hepatic metastases, not significantly changed compared to prior exam on 11/09/2023. Specifically, the 3 metastases mentioned on prior exam are unchanged in size. Gallbladder: Calcified cholelithiasis. Bile ducts: Nondilated. Spleen: More conspicuous heterogeneity of the hepatic parenchymal enhancement. Splenomegaly. Pancreas: No focal pancreatic lesion or pancreatic ductal dilatation. Adrenal glands: No adrenal mass. Kidneys, ureters, bladder: Symmetric nephrograms. Bilateral subcentimeter hypodensities, too small to accurately characterize on CT. No nephrolithiasis or hydroureteronephrosis. Unremarkable urinary bladder. Reproductive organs: Uterine fibroids are unchanged. No adnexal mass. Bowel: Bowel wall thickening and increased mucosal enhancement in the ascending colon, cecum,, and stomach consistent with portal hypertensive colopathy and gastropathy. There is mucosal hyperenhancement involving the ileum in the right lower quadrant. Peritoneal cavity: Moderate to large volume hypodense free fluid throughout the peritoneum. Lymph nodes: Increased number of visible mesenteric lymph nodes, not significantly changed compared to prior exam. No pathologically enlarged lymph nodes Vascular: Atherosclerotic calcifications of the nonaneurysmal abdominal aorta. Portal system is patent. Abdominal wall: No bowel-containing hernia. Musculoskeletal: Posterior fusion hardware of L3-S1. Multilevel degenerative changes. Unchanged right iliac wing lytic lesion. 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 Resulting Agency Comment [id number] Procedure Note Richard Antonio MD - 12/12/2023 CT ABDOMEN PELVIS W CONTRAST 12/12/2023 3:38 PM Signs and Symptoms/Comments: Upper abdominal pain with nausea but novomiting over the past few days, actively being treated for metastaticbreast cancer; Upper abdominal pain with nausea but no vomiting over thepast few days, actively being treated for metastatic breast cancer; Technique: CT of the abdomen and pelvis was performed following theadministration of intravenous contrast. This CT used either dose modulation and/or iterative reconstructiontechniques to lower radiation dose. Comparison: CT abdomen pelvis 11/09/2023, 10/14/2023. Findings: Lower chest: Incidentally noted bilateral pulmonary emboli (series 201image 13, 15), which is present and unchanged compared to prior exam on11/09/2023. Liver: Diffuse hepatic metastases, not significantly changed compared toprior exam on 11/09/2023. Specifically, the 3 metastases mentioned on priorexam are unchanged in size. Gallbladder: Calcified cholelithiasis. Bile ducts: Nondilated. Spleen: More conspicuous heterogeneity of the hepatic parenchymalenhancement. Splenomegaly. Pancreas: No focal pancreatic lesion or pancreatic ductal dilatation. Adrenal glands: No adrenal mass. Kidneys, ureters, bladder: Symmetric nephrograms. Bilateral subcentimeterhypodensities, too small to accurately characterize on CT. Nonephrolithiasis or hydroureteronephrosis. Unremarkable urinary bladder. Reproductive organs: Uterine fibroids are unchanged. No adnexal mass. Bowel: Bowel wall thickening and increased mucosal enhancement in theascending colon, cecum,, and stomach consistent with portal hypertensivecolopathy and gastropathy. There is mucosal hyperenhancement involving theileum in the right lower quadrant. Peritoneal cavity: Moderate to large volume hypodense free fluidthroughout the peritoneum. Lymph nodes: Increased number of visible mesenteric lymph nodes, notsignificantly changed compared to prior exam. No pathologically enlargedlymph nodes Vascular: Atherosclerotic calcifications of the nonaneurysmal abdominalaorta. Portal system is patent. Abdominal wall: No bowel-containing hernia. Musculoskeletal: Posterior fusion hardware of L3-S1. Multileveldegenerative changes. Unchanged right iliac wing lytic lesion. 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 IMPRESSION 1. Hyperenhancement of the mucosa involving the ileum suspicious forenteritis. 2. Unchanged hepatic metastatic disease compared to exam from11/09/2023. 3. Incidentally noted bilateral pulmonary emboli, unchanged from exams on11/09/2023. 4. Sequela of portal hypertension, including moderate to large volumeascites. 5. Lytic right iliac bone lesion, unchanged. 6. Cholelithiasis. I have personally reviewed the images and the above interpretation andagree with the findings. [id number] Halle Julianeselam RECINOS IMG CT ORDERABLES * CT HEAD WO CONTRAST (12/12/2023 15:53 EDT) Anatomical Region Laterality Modality Head Computed Tomogra phy 12/12/2023 17:0 1 EDT Impressions 12/12/2023 17:01 EDT No evidence of recent intracranial hemorrhage, acute infarction, or mass. I have personally reviewed the images and the above interpretation and agree with the findings. [id number] Narrative 12/12/2023 17:01 EDT EXAM: CT HEAD WO CONTRAST HISTORY: Increased confusion over the past few days actively treated for breast cancer with chemotherapy; Increased confusion over the past few days actively treated for breast cancer with chemotherapy; ?? TECHNIQUE: CT head without contrast. Structured report code: [email or web address] This CT used either dose modulation and/or iterative reconstruction techniques to lower radiation dose. COMPARISON: MR head 12/30/2016. FINDINGS: PARENCHYMA: No evidence of acute infarction. No acute parenchymal hemorrhage. No mass or shift of structures across the midline. EXTRA-AXIAL SPACES: No extra-axial collection. No extra-axial mass. No acute extra-axial hemorrhage. VENTRICULAR SYSTEM: No acute intraventricular hemorrhage. No obstructive hydrocephalus. VESSELS: Limited evaluation without IV contrast. Normal density in the dural venous sinuses. Trace calcifications are present within the carotid siphons. BONES: No concerning lesions. No evidence of fracture. ORBITS: No significant abnormality. PARANASAL SINUSES/MASTOID AIR CELLS: Predominantly clear. EXTRACRANIAL SOFT TISSUES: Unremarkable. Resulting Agency Comment [id number] Procedure Note Eugene Painting MD - 12/12/2023 EXAM: CT HEAD WO CONTRAST HISTORY: Increased confusion over the past few days actively treated forbreast cancer with chemotherapy; Increased confusion over the past fewdays actively treated for breast cancer with chemotherapy; TECHNIQUE: CT head without contrast. Structured report code: [email or web address] This CT used either dose modulation and/or iterative reconstructiontechniques to lower radiation dose. COMPARISON: MR head 12/30/2016. FINDINGS: PARENCHYMA: No evidence of acute infarction. No acute parenchymal hemorrhage. No massor shift of structures across the midline. EXTRA-AXIAL SPACES: No extra-axial collection. No extra-axial mass. No acute extra-axialhemorrhage. VENTRICULAR SYSTEM: No acute intraventricular hemorrhage. No obstructive hydrocephalus. VESSELS: Limited evaluation without IV contrast. Normal density in the dural venoussinuses. Trace calcifications are present within the carotid siphons. BONES: No concerning lesions. No evidence of fracture. ORBITS: No significant abnormality. PARANASAL SINUSES/MASTOID AIR CELLS: Predominantly clear. EXTRACRANIAL SOFT TISSUES: Unremarkable. IMPRESSION No evidence of recent intracranial hemorrhage, acute infarction, ormass. I have personally reviewed the images and the above interpretation andagree with the findings. [id number] Halle Benito PA-C IMG CT ORDERABLES * SARS COV2, FLU A/B, RSV DETECT BY PCR (12/12/2023 14:44 EDT) FLU A RNA Result (FLARES) Negative Negative 12/12/2023 15:35 EDT [facility] FLU B RNA Result (FLBRES) Negative Negative 12/12/2023 15:35 EDT [facility] RSV RNA Result (RSVRES) Negative Negative 12/12/2023 15:35 EDT [facility] COVID-19 rt-PCR Result Negative Negative 12/12/2023 15:35 EDT [facility] Comment: Negative results do not preclude 2019-nCoV infection and should not be used as the sole basis for treatment or other patient management decisions. Negative results must be combined with clinical observations, patient history, and epidemiological information. Performed on the [employer] Instrument Swab NASOPHARYNGEAL STRUCTURE / Unknown Swab / Unknown 12/12/2023 14:44 EDT 12/12/2023 14:49 EDT Halle Benito PA-C MICROBIOLOGY - GENER AL ORDERABLES [facility] [address] [place] [phone] * BACTERIAL CULTURE, BLOOD (12/12/2023 14:33 EDT) Organism ID No Growth at 5 days 12/17/2023 15:01 EDT [facility] Blood VENOUS BLOOD / Unknown Venipuncture / Unknown 12/12/2023 14:33 EDT 12/12/2023 14:53 EDT Linda Garza MD MICROBIOLOGY - GENER AL ORDERABLES Performing Organization Address [facility]/ZIP Co de Phone Number [facility] [address], [place] [phone] * (ABNORMAL) BLOOD GASES, VENOUS (12/12/2023 13:26 EDT) pH, Venous 7.39 7.31 - 7.41 12/12/2023 13:45 EDT [facility] pCO2, Venous 45 41 - 51 mmHg 12/12/2023 13:45 EDT [facility] pO2, Venous 20(L) 30 - 50 mmHg 12/12/2023 13:45 EDT [facility] tCO2, Venous 28 22 - 28 mmol/L 12/12/2023 13:45 EDT [facility] Temperature 37.0 C 12/12/2023 13:45 EDT [facility] Comment:Body Temp not noted. 37 degrees assumed. O2 Saturation, Venous 27(L) 60 - 85 % 12/12/2023 13:45 EDT [facility] Oxygen Therapy (FIO2) 12/12/2023 13:45 EDT [facility] Comment:Oxygen therapy not n oted in system. Base Level 1.30 -2.00 - 3.00 mmol/L 12/12/2023 13:45 EDT [facility] Blood VENOUS BLOOD / Unknown Venipuncture / Unknown 12/12/2023 13:26 EDT 12/12/2023 13:30 EDT Linda Garza MD CHEMISTRY & BLOOD GA S ORDERABLES [facility] [address], [place] [phone] * (ABNORMAL) LACTIC ACID WITH REFLEX - USE FOR INITIAL SEPSIS EVALUATION (12/12/2023 13:26 EDT) Lactic Acid 2.9(HH) <=2.0 mmol/L 12/12/2023 13:48 EDT [facility] Blood VENOUS BLOOD / Unknown Venipuncture / Unknown 12/12/2023 13:26 EDT 12/12/2023 13:30 EDT Linda Garza MD CHEMISTRY & BLOOD GA S ORDERABLES Performing Organization Address [facility]/ZIP Co de Phone Number [facility] [address] [place] [address] * LIPASE (12/12/2023 13:26 EDT) Lipase 116 <251 U/L 12/12/2023 13:47 EDT [facility] Blood VENOUS BLOOD / Unknown Venipuncture / Unknown 12/12/2023 13:26 EDT 12/12/2023 13:30 EDT Linda Garza MD CHEMISTRY & BLOOD GA S ORDERABLES Performing Organization Address [facility] Co de Phone Number [facility] [address] [place] [address] * (ABNORMAL) COMPREHENSIVE METABOLIC PANEL (CMP) (12/12/2023 13:26 EDT) Sodium 137 136 - 145 mmol/L 12/12/2023 13:47 EDT [facility] Potassium 3.3(L) 3.5 - 5.0 mmol/L 12/12/2023 13:47 T [facility] Chloride 104 96 - 110 mmol/L 12/12/2023 13:47 T [facility] CO2 Total 26 22 - 32 mmol/L 12/12/2023 13:47 T [facility] Glucose 138(H) 70 - 99 mg/dl 12/12/2023 13:47 T [facility] BUN 30(H) 10 - 26 mg/dL 12/12/2023 13:47 [facility] Creatinine 0.64 0.52 - 1.04 mg/dL 12/12/2023 13:47 [facility] eGFR 100 >60 mL/min/1.7 3m2 12/12/2023 13:47 [facility] Total Protein 5.7(L) 6.3 - 8.2 g/dL 12/12/2023 13:47 [facility] Albumin 3.0(L) 3.4 - 4.9 g/dL 12/12/2023 13:47 [facility] Alkaline Phosphatase 331(H) 38 - 126 U/L 12/12/2023 13:47 [facility] AST 66(H) 15 - 46 U/L 12/12/2023 13:47 [facility] ALT 44(H) <35 U/L 12/12/2023 13:47 [facility] Bilirubin, Total 2.2(H) <1.4 mg/dL 12/12/19 13:47 [facility] Calcium 8.1(L) 8.5 - 10.5 mg/dL 12/12/2023 13:47 [facility] Albumin/Globulin Ratio 1.1 1.0 - 2.5 12/12/2023 13:47 [facility] Anion Gap 7 5 - 14 mmol/L 12/12/2023 13:47 [facility] Blood VENOUS BLOOD / Unknown Venipuncture / Unknown 12/12/2023 13:26 EDT 12/12/2023 13:30 EDT Linda Garza MD CHEMISTRY & BLOOD GA S ORDERABLES [facility] [address] [place] [address] * (ABNORMAL) COMPLETE BLOOD COUNT AND DIFFERENTIAL (12/12/2023 13:26 EDT) WBC 4.23 4.00 - 12.40 K/cmm 12/12/2023 13:45 [facility] RBC 3.25(L) 3.86 - 5.04 M/cmm 12/12/2023 13:45 [facility] Hemoglobin 10.7(L) 11.6 - 15.2 g/dL 12/12/2023 13:45 [facility] HCT 32.5(L) 34.9 - 44.4 % 12/12/2023 13:45 [facility] MCV 100(H) 81 - 98 fL 12/12/2023 13:45 [facility] MCH 32.9 26.7 - 33.3 pg 12/12/2023 13:45 [facility] MCHC 32.9 32.1 - 35.9 g/dL 12/12/2023 13:45 [facility] RDW-CV 22.0(H) <14.7 % 12/12/2023 13:45 [facility] RDW-SD 79.5(H) <50.4 fl 12/12/2023 13:45 [facility] PLT 261 141 - 377 K/cmm 12/12/2023 13:45 [facility] MPV 11.4 9.5 - 12.7 fL 12/12/2023 13:45 [facility] Nucleated Red Blood Cells 2(H) <=0 /100WBC'S 12/12/2023 13:45 [facility] % Neutrophils 50.5 % 12/12/2023 13:45 [facility] % Lymphocytes 25.1 % 12/12/2023 13:45 [facility] % Monocytes 20.3 % 12/12/2023 13:45 [facility] % Eosinophils 1.7 % 12/12/2023 13:45 [facility] % Basophils 0.5 % 12/12/2023 13:45 [facility] % Immature Grans 1.9 % 12/12/19 13:45 EDT [facility] Absolute Neutrophils 2.14(L) 2.20 - 8.85 K/cmm 12/12/2023 13:45 T [facility] Absolute Lymphocytes 1.06(L) 1.09 - 3.30 K/cmm 12/12/2023 13:45 EDT [facility] Absolute Monocytes 0.86(H) 0.10 - 0.80 K/cm 12/12/2023 13:45 EDT [facility] Absolute Eosinophils 0.07 0.03 - 0.61 K/cm 12/12/2023 13:45 T [facility] ABS Basophils 0.02 0.01 - 0.11 K/cm 12/12/2023 13:45 [facility] Absolute Immature Grans 0.08(H) 0.00 - 0.06 K/cm 12/12/2023 13:45 EDT [facility] Type of Differential: Auto 12/12/2023 13:45 EDT [facility] Blood VENOUS BLOOD / Unknown Venipuncture / Unknown 12/12/2023 13:26 EDT 12/12/2023 13:33 EDT Linda Garza MD PACKAGES & DNA PROBE ORDERABLES [facility] [address] [place] [phone] * BACTERIAL CULTURE, BLOOD (12/12/2023 13:26 EDT) Organism ID No Growth at 5 days 12/17/2023 13:46 EDT [facility] Blood VENOUS BLOOD / Unknown Venipuncture / Unknown 12/12/2023 13:26 EDT 12/12/2023 13:39 EDT Linda Garza MD MICROBIOLOGY - GENER AL ORDERABLES [facility] [address] [place] [address] * [place] ABDOM PARACENTESIS DX/THER W/IMAGING GUIDANCE, HC - ABDOM PARACENTESIS DX/THER W/IMAGING GUIDANCE (12/12/2023 11:54 EDT) Narrative [facility] - 12/12/2023 11:54 EDT Halle Benito PA-C ? 12/15/2023 11:31 Paracentesis Performed by: Halle Benito PA-C Authorized by: Halle Benito PA-C ?? Consent: ??Consent obtained: ??Verbal ??Risks discussed: ??Bleeding, bowel perforation, infection and pain [place] protocol: ??Procedure explained and questions answered to patient or proxy's satisfaction: yes ?Imaging studies available: yes ?Site/side marked: yes ?Patient identity confirmed: ??Verbally with patient Pre-procedure details: ??Procedure purpose: ??Diagnostic Anesthesia: ??Anesthesia method: ??Local infiltration ??Local anesthetic: ??Lidocaine 1% w/o epi Procedure details: ??Needle gauge: ??18 ??Ultrasound guidance: yes ?Puncture site: Right suprapubic. 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] documented in this encounter Admitting Diagnoses Diagnosis 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) documented in this encounter Administered Medications Inactive Administered Medications - up to 3 most recent administrations Medication Order MAR Action Action Date Dose Rate Site apixaban (ELIQUIS) tablet 5 mg 5 mg, oral, 2 TIMES DAILY, First dose on Tue12/13/23 at 0900, Until Discontinued, Routine Given 12/14/2023 8:40 EDT 5 mg Given 12/13/2023 20:37 EDT 5 mg Given 12/13/2023 9:17 EDT 5 mg cefepime (MAXIPIME) 2,000 mg in sodium chloride (NS MBP) 50 mL IVPB 2,000 mg, intravenous, Administer over 30 Minutes, NOW X1, 1 dose, On Tue12/12/23 at 1415, Controlled antibiotic: has ID approved? No: ED Patient. If admitted, further doses required ID approval, Type of Therapy: Empiric, Suspected Indication (Select all that apply): Sepsis or septic shock of unknown source, Controlled Antibiotic Has ID Approved? No, Please select the appropriate choice: One time dose in ED, subsequent doses required ID approval, ID Consult: No, STAT Given 12/12/2023 15:11 EDT 2,000 mg gabapentin (NEURONTIN) capsule 200 mg 200 mg, oral, 3 TIMES DAILY, First dose on Tue12/14/23 at 1400, Until Discontinued, Routine Given 12/14/2023 13:39 EDT 200 mg gadoterate meglumine solution 1-30 mL 1-30 mL, intravenous, Once in imaging, 1 dose, Starting on Tue12/13/23 at 1628, Until Tue12/13/23 at 1644, Routine, Imaging Protocol Orders Given 12/13/2023 16:44 EDT 10 mL iohexoL (OMNIPAQUE 350) solution 100 mL 100 mL, intravenous, Once in imaging, 1 dose, Starting on Tue12/12/23 at 1553, Until Tue12/12/23 at 1553, Routine, Imaging Protocol Orders Given 12/12/2023 15:53 EDT 98 mL lactated ringers BOLUS 500 mL 500 mL, intravenous, NOW X1, 1 dose, On Tue12/12/23 at 1415, STAT New Bag 12/12/2023 14:41 EDT 500 mL lidocaine (PF) 10 mg/mL (1 %) injection 2 mg 2 mg, intradermal, PRN, 2 doses, Starting on Tue12/12/23 at 2319, Until Tue12/14/23 at 1915, line access, Routine morphine (MS IR) tablet 7.5 mg 7.5 mg, oral, EVERY 4 HOURS PRN, Starting on Tue12/14/23 at 1310, Until Tue12/14/23 at 1915, Pain, Routine morphine injection 4 mg 4 mg, intravenous, NOW X1, 1 dose, On Tue12/12/23 at 1315, STAT Given 12/12/2023 13:33 EDT 4 mg morphine IV solution 3 mg 3 mg, intravenous, EVERY 4 HOURS PRN, Starting on Tue12/13/23 at 1801, Until Tue12/14/23 at 1310, Severe Pain 7-10, Routine Given 12/14/2023 1:08 EDT 3 mg Given 12/13/2023 19:51 EDT 3 mg morphine IV solution 5 mg 5 mg, intravenous, EVERY 4 HOURS PRN, Starting on Tue12/13/23 at 1555, Until Tue12/13/23 at 1801, Severe Pain 7-10, Routine Given 12/13/2023 16:05 EDT 5 mg ondansetron (PF) (ZOFRAN) 4 mg/2 mL injection 1 dose, Starting on Tue12/12/23 at 1345, Until Tue12/12/23 at 1348 ondansetron (PF) (ZOFRAN) injection 4 mg 4 mg, intravenous, NOW X1, 1 dose, On Tue12/12/23 at 1400, STAT Given 12/12/2023 13:48 EDT 4 mg ondansetron (PF) (ZOFRAN) injection 4 mg 4 mg, intravenous, EVERY 6 HOURS PRN, Starting on Tue12/12/23 at 2018, Until Tue12/14/23 at 1915, Nausea, Vomiting, Routine ondansetron (ZOFRAN-ODT) disintegrating tablet 4 mg 4 mg, oral, EVERY 6 HOURS PRN, Starting on Tue12/12/23 at 2018, Until Tue12/14/23 at 1915, Nausea, Routine pantoprazole (PROTONIX) tablet 40 mg 40 mg, oral, 2 TIMES DAILY, First dose on Tue12/13/23 at 0900, Until Discontinued, Routine Given 12/13/2023 20:37 EDT 40 mg Given 12/13/2023 9:17 EDT 40 mg pantoprazole (PROTONIX) tablet 40 mg 40 mg, oral, 2 TIMES DAILY BEFORE BREAKFAST & DINNER, First dose on Tue12/14/23 at 0715, Until Discontinued Given 12/14/2023 8:00 EDT 40 mg potassium chloride SA (KLOR-CON M20) tablet 40 mEq 40 mEq, oral, NOW X1, 1 dose, On Tue12/12/23 at 1930, STAT Given 12/12/2023 19:35 EDT 40 mEq predniSONE (DELTASONE) tablet 10 mg 10 mg, oral, DAILY, First dose on Tue12/13/23 at 1530, Until Discontinued, Routine Given 12/14/2023 8:40 EDT 10 mg Given 12/13/2023 16:05 EDT 10 mg vancomycin (VANCOCIN) IVPB 1,000 mg 1,000 mg (rounded from 1,070 mg = 20 mg/kg ? 53.5 kg), intravenous, Administer over 60 Minutes, NOW X1, 1 dose, On Tue12/12/23 at 1415, Type of Therapy: Empiric, Suspected Indication (Select all that apply): Other, Other Indication: Fever on chemo, ID Consult: No, STAT Given 12/12/2023 16:22 EDT 1,000 mg venlafaxine (EFFEXOR-XR) XR capsule 150 mg 150 mg, oral, DAILY, First dose on Tue12/14/23 at 0900, Until Discontinued, Routine Given 12/14/2023 8:40 EDT 150 mg venlafaxine (EFFEXOR-XR) XR capsule 75 mg 75 mg, oral, DAILY, First dose (after last modification) on Tue12/15/23 at 0900, Until Discontinued, Routine documented in this encounter Discontinued Medications Medication Sig Discontinue Reason Start Date End Da te venlafaxine (EFFEXOR-XR) 150 mg XR capsule Take 1 Cap by mouth daily. 08/16/2012 12/14/2023 gabapentin (NEURONTIN) 100 mg capsule Take 2 Caps by mouth 2 times daily. 08/16/2012 12/14/2023 mv-mn/C/glutamin/lysin/ [id number] ([place], ASCORBATE SODIUM, ORAL) Take by mouth as needed. 12/14/2023 prasterone, dhea, (INTRAROSA) 6.[address] 6.5 mg vaginally daily. 07/30/2022 12/14/2023 gabapentin (NEURONTIN) 600 mg tablet Take 1 Tablet by mouth every evening. 12/14/2023 documented as of this encounter Active and Recently Administered Medications Times are shown in EDT. Scheduled Medication Order 12/12/2023 12/13/2023 12/14/2023 apixaban (ELIQUIS) tablet 5 mg 5 mg, oral, 2 TIMES DAILY, First dose on Tue12/13/23 at 0900, Until Discontinued, Routine 09 (Given - Provider: Criselda Cisneros, RN)2036 (Given - Provider: Garima Otero, SHELLEY) 0840 (Given - Provider: Caroline Devine RN) cefepime (MAXIPIME) 2,000 mg in sodium chloride (NS MBP) 50 mL IVPB (COMPLETED) 2,000 mg, intravenous, Administer over 30 Minutes, NOW X1, 1 dose, On Tue12/12/23 at 1415, Controlled antibiotic: has ID approved? No: ED Patient. If admitted, further doses required ID approval, Type of Therapy: Empiric, Suspected Indication (Select all that apply): Sepsis or septic shock of unknown source, Controlled Antibiotic Has ID Approved? No, Please select the appropriate choice: One time dose in ED, subsequent doses required ID approval, ID Consult: No, STAT 1511 (Given - Provider: Kaylah Randle RN)1623 (Completed - Provider: Kalani Caba RN) gabapentin (NEURONTIN) capsule 200 mg 200 mg, oral, 3 TIMES DAILY, First dose on Tue12/14/23 at 1400, Until Discontinued, Routine 1339 (Given - Provid er: Caroline Devine RN) gadoterate meglumine solution 1-30 mL (COMPLETED) 1-30 mL, intravenous, Once in imaging, 1 dose, Starting on Tue12/13/23 at 1628, Until Tue12/13/23 at 1644, Routine, Imaging Protocol Orders 1644 (Given - Provider: Elpidio Doherty) iohexoL (OMNIPAQUE 350) solution 100 mL (COMPLETED) 100 mL, intravenous, Once in imaging, 1 dose, Starting on Tue12/12/23 at 1553, Until Tue12/12/23 at 1553, Routine, Imaging Protocol Orders 1553 (Given - Provider: Aster Fuchs) lactated ringers BOLUS 500 mL (COMPLETED) 500 mL, intravenous, NOW X1, 1 dose, On Tue12/12/23 at 1415, STAT 1441 (New Bag - Provider: Kaylah Randle RN)1643 (IV Stopped - Provider: Kalani Caba RN) morphine injection 4 mg (COMPLETED) 4 mg, intravenous, NOW X1, 1 dose, On Tue12/12/23 at 1315, STAT 1333 (Given - Provider: Kaylah Randle RN) ondansetron (PF) (ZOFRAN) injection 4 mg (COMPLETED) 4 mg, intravenous, NOW X1, 1 dose, On Tue12/12/23 at 1400, STAT 1348 (Given - Provider: Kaylah Randle RN) pantoprazole (PROTONIX) tablet 40 mg (CANCELED) 40 mg, oral, 2 TIMES DAILY, First dose on Tue12/13/23 at 0900, Until Discontinued, Routine 0917 (Given - Provider: Criselda Cisneros RN)2036 (Given - Provider: Garima Otero RN) pantoprazole (PROTONIX) tablet 40 mg 40 mg, oral, 2 TIMES DAILY BEFORE BREAKFAST & DINNER, First dose on Tue12/14/23 at 0715, Until Discontinued 0800 (Given - Provid er: Caroline Devine RN)1600 (Canceled Entry - Provider: Batch Job User Admin - Comment: Automatically canceled at discontinue of medication order) potassium chloride SA (KLOR-CON M20) tablet 40 mEq (COMPLETED) 40 mEq, oral, NOW X1, 1 dose, On Tue12/12/23 at 1930, STAT 1935 (Given - Provider: Kalani Caba RN) predniSONE (DELTASONE) tablet 10 mg 10 mg, oral, DAILY, First dose on Tue12/13/23 at 1530, Until Discontinued, Routine 1605 (Given - Provider: Criselda Cisneros RN) 0840 (Given - Provider: Caroline Devine RN) vancomycin (VANCOCIN) IVPB 1,000 mg (COMPLETED) 1,000 mg (rounded from 1,070 mg = 20 mg/kg ? 53.5 kg), intravenous, Administer over 60 Minutes, NOW X1, 1 dose, On Tue12/12/23 at 1415, Type of Therapy: Empiric, Suspected Indication (Select all that apply): Other, Other Indication: Fever on chemo, ID Consult: No, STAT 1622 (Given - Provider: Kalani Caba RN)1741 (Completed - Provider: Kalani Caba RN) venlafaxine (EFFEXOR-XR) XR capsule 150 mg (CANCELED) 150 mg, oral, DAILY, First dose on Tue12/14/23 at 0900, Until Discontinued, Routine 0840 (Given - Provid er: Caroline Devine RN) venlafaxine (EFFEXOR-XR) XR capsule 75 mg 75 mg, oral, DAILY, First dose (after last modification) on Michelle 12/15/23 at 0900, Until Discontinued, Routine PRN Medication Order 12/12/2023 12/13/2023 12/14/2023 acetaminophen (TYLENOL) tablet 650 mg 650 mg, oral, EVERY 6 HOURS PRN, Starting on Tue12/12/23 at 2007, Until Tue12/14/23 at 191, Pain, Fever, Routine lidocaine (PF) 10 mg/mL (1 %) injection 2 mg 2 mg, intradermal, PRN, 4 doses, Starting on Tue12/12/23 at 2007, Until Tue12/14/23 at 191, peripheral intravenous catheter placement, Routine lidocaine (PF) 10 mg/mL (1 %) injection 2 mg 2 mg, intradermal, PRN, 2 doses, Starting on Tue12/12/23 at 2319, Until Tue12/14/23 at 191, line access, Routine morphine (MS IR) tablet 7.5 mg 7.5 mg, oral, EVERY 4 HOURS PRN, Starting on Tue12/14/23 at 1310, Until Tue12/14/23 at 1915, Pain, Routine morphine IV solution 3 mg (CANCELED) 3 mg, intravenous, EVERY 4 HOURS PRN, Starting on Tue12/13/23 at 1801, Until Tue12/14/23 at 1310, Severe Pain 7-10, Routine 1951 (Given - Provider: Criselda Cisneros, SHELLEY) 0108 (Given - Provider: Nathaniel Blank RN) morphine IV solution 5 mg (CANCELED) 5 mg, intravenous, EVERY 4 HOURS PRN, Starting on Tue12/13/23 at 1555, Until Tue12/13/23 at 1801, Severe Pain 7-10, Routine 1605 (Given - Provider: Criselda Cisneros RN) ondansetron (PF) (ZOFRAN) injection 4 mg(Linked Group 1) 4 mg, intravenous, EVERY 6 HOURS PRN, Starting on Tue12/12/23 at 2017, Until Tue12/14/23 at 191, Nausea, Vomiting, Routine ondansetron (ZOFRAN-ODT) disintegrating tablet 4 mg(Linked Group 1) 4 mg, oral, EVERY 6 HOURS PRN, Starting on Tue12/12/23 at 2017, Until Tue12/14/23 at 191, Nausea, Routine polyethylene glycol 3350 (MIRALAX) packet 17 g 17 g, oral, DAILY PRN, Starting on Tue12/12/23 at 2006, Until Tue12/14/23 at 191, Constipation, Routine ramelteon (ROZEREM) tablet 8 mg 8 mg, oral, AT BEDTIME PRN, Starting on Tue12/12/23 at 2006, Until Tue12/14/23 at 1914, Sleep, Routine senna (SENOKOT) tablet 2 Tablet 2 Tablet, oral, AT BEDTIME PRN, Starting on Tue12/12/23 at 2006, Until Tue12/14/23 at 191, Constipation, Routine Linked Groups Order Group 1: ondansetron (ZOFRAN-ODT) disintegrating tablet 4 mgJump to med 4 mg, oral, EVERY 6 HOURS PRN, Starting on Tue12/12/23 at 2017, Until Tue12/14/23 at 191, Nausea, Routine Or ondansetron (PF) (ZOFRAN) injection 4 mgJump to med 4 mg, intravenous, EVERY 6 HOURS PRN, Starting on Tue12/12/23 at 2017, Until Tue12/14/23 at 191, Nausea, Vomiting, Routine documented in this encounter Orders Medications Ordered That Vj ht Not Have Been Administered Count Last Ordered Date First Ordered Date morphine (MS IR) tablet 7.5 mg 1 12/14/2023 venlafaxine (EFFEXOR-XR) XR capsule 75 mg 1 12/14/2023 acetaminophen (TYLENOL) tablet 650 mg 1 06/2023 lidocaine (PF) 10 mg/mL (1 % ) injection 2 mg 2 12/12/2023 ondansetron (PF) (ZOFRAN) injection 4 mg 1 12/12/2023 ondansetron (ZOFRAN-ODT) dis integrating tablet 4 mg 1 12/12/2023 polyethylene glycol 3350 (DC RALAX) packet 17 g 1 12/12/2023 ramelteon (ROZEREM) tablet 8 mg 1 4 senna (SENOKOT) tablet 2 Tablet 1 4 Diet Count Last Ordered Date First Orde red Date DISCHARGE DIET 1 12/14/2023 Nursing Count Last Ordered Date First Orde red Date ACTIVITY INSTRUCTIONS 1 12/14/2023 BATHING INSTRUCTIONS 1 12/14/2023 DRIVING INSTRUCTIONS 1 12/14/2023 VITAL SIGNS 1 12/12/2023 Consult Count Last Ordered Date First Orde red Date CONSULT NUTRITION 1 12/13/2023 Admission Count Last Ordered Date First Orde red Date ADMIT TO INPATIENT 1 12/12/2023 Transfer Count Last Ordered Date First Orde red Date ED BED REQUEST 1 12/12/2023 Discharge Count Last Ordered Date First Orde red Date DISCHARGE PATIENT 1 12/14/2023 documented in this encounter Additional Health Concerns Infection Onset Date Last Indicated Resolved Time R/O COVID-19 12/12/2023 12/12/2023 12/12/2023 15:3 5 EDT documented as of this encounter Care Teams Molder Labels Relationship Specialty Start Date End Date Linda Blancas MD [facility] [address] [place] [address] PCP - General 01/06/11 Adolfo Carreno MD [address] [place] [phone] General Surgery 04/26/19 Augustina Colin MD PhD [address] [place] [phone] Medical Oncology 04/26/19 documented as of this encounter
--- OUTSIDE RECORDS SUMMARY | 2024-03-20 14:38 | XMS_ITS | Encounter Summary ---
Author Organization [facility] Address [address] [place] [address] Care Team Providers Care Procedures Nurse Name Role Phone Linda Blancas MD Primary Care Provider [phone] Adolfo Carreno MD Unavailable [phone] Augustina Colin MD PhD Unavailable Unavailable Encounter Details Date Type Department Care Team (Late st Contact Info) Description 11/29/2023 Orders Only [facility] Cancer Center Hematology & Oncology - [address] [phone] Alisson Carreon MD 111 [facility], Level 2 [place] [phone] Primary malignant neoplasm of breast [...] Description 04/02/2024 10:30 EDT Appointment [facility] Interventional Radiology Unit [address] [place] [address] [phone] 04/02/2024 15:15 EDT Office Visit [facility] Surgical Oncology - [address] [phone] Adolfo Carreno MD 111 [facility] 2 [place] [phone] 04/05/2024 9:30 EDT Telemedicine [facility] - [facility] Palliative Care Services [address] [place], [place] [phone] Chichi Woods MD [address] [place] [address], [address] [phone] 04/11/2024 15:00 EDT Telemedicine [facility] Hematology & Oncology [address] [phone] Alisson Carreon MD [address] [place] [address] 2 [place] [phone] 04/13/2024 13:30 EDT Appointment [facility] Hematology & Oncology - [address] [address] 04/13/2024 14:00 EDT Appointment [facility] Hematology & Oncology [address] [phone] 04/16/2024 10:00 EST Telemedicine [facility] - [facility] Palliative Care Services [address] [place] [address] [phone] Chichi Woods MD [address] [place] [address], [address] [phone] 04/24/2024 9:00 EST Appointment [facility] Radiology CT Outpatient - [address] [id number] 04/24/2024 11:00 EST Appointment [facility] Breast Imaging - [facility] [address] [id number] 04/27/2024 12:00 EST Appointment [facility] Hematology & Oncology - [address] [phone] 05/02/2024 15:00 EST Telemedicine [facility] Hematology & Oncology [address] [phone] Alisson Carreon MD [address] [place] [address], Level [address] [place] [phone] 05/04/2024 10:15 EST Ancillary Procedure [facility] Cardiology - [place] [address] 05/04/2024 11:30 EST Appointment [facility] Hematology & Oncology [address] [phone] 05/04/2024 12:00 EST Appointment [facility] Hematology & Oncology [address] [id number] 06/12/2024 13:00 [facility] Radiology CT - [facility] [address] [place], [place] 738121 documented as of this encounter Procedures Procedure Name Priority Date/Time Associated Diagnosis Comments MISCELLANEOUS TEST, NON SOLER Routine 11/29/2023 11:00 EDT Primary malignant neoplasm of breast with metastasis (HCC-CMS) documented in this encounter Results * MISCELLANEOUS TEST, NON SOLER (11/29/2023 11:00 EDT) Test Name Guardant 360 12/14/2023 16:02 EDT EXTERNAL LAB Ref Lab Guardant 12/14/2023 16:02 EDT EXTERNAL LAB Blood VENOUS BLOOD / Unknown Venipuncture / Unknown 11/29/2023 11:00 EDT 11/29/2023 11:22 EDT Narrative EXTERNAL LAB - 12/14/2023 16:02 EDT See Scanned Results in Patient's Chart. Alisson Carreon MD CHEMISTRY & BLOOD G ORDERABLES EXTERNAL LAB documented in this encounter Visit Diagnoses Diagnosis Primary malignant neoplasm of breast with metastasis (HCC-CMS) documented in this encounter Additional Health Concerns Infection Onset Date Last Indicated Resolved Time R/O COVID-19 12/12/2023 12/12/2023 12/12/2023 15:3 5 EDT R/O COVID-19 01/08/2024 01/08/2024 01/08/2024 18:2 6 EDT R/O COVID-19 01/16/2024 01/16/2024 01/16/2024 17:5 0 EDT documented as of this encounter Care Teams Procedures Nurse Relationship Specialty Start Date End Date Linda Blancas MD [facility] [address] [place] [address] PCP - General 01/06/11 Adolfo Carreno MD [address] [facility] 2 [place] [address] General Surgery 04/26/19 Augustina Colin MD PhD [address] [place] [phone] Medical Oncology 04/26/19 documented as of this encounter
--- OUTSIDE RECORDS SUMMARY | 2024-03-20 14:38 | XMS_ITS | Encounter Summary ---
Author Organization [facility] Address [address] [place] [address] Care Team Providers Care Plug Stitcher Name Role Phone Linda Blancas MD Primary Care Provider [phone] Adolfo Carreno MD Unavailable [phone] Augustina Colin MD PhD Unavailable Unavailable Encounter Details Date Type Department Care Team (Late st Contact Info) Description 12/09/2023 Telephone [facility] Gastroenterology - [facility] [address] [place], [place] [phone] Yovana Bowman RN Social History Tobacco Use Types Packs/Day Years Used Date Smoking Tobacco: Never Passive Smoke Exposure: Never Smokeless Tobacco: Never Alcohol Use Standard Drinks/Week Comments Not Currently 1 (1 standard drink = 0.6 oz pur e alcohol) [facility] Utilities Answer Date Recorded In the past 12 months has e [employer], gas, oil, or water [email or web address] threatened to shut off services in your [...] any time in the past 12 m [facility], were you homeless or living in a mcc (including now)? No 12/13/2023 Interpersonal Safety Answer [...] Telephone Encounter - Yovana Bowman RN - 12/09/2023 1222 EDT Hugo Vergara MD PhD Yovana Bowman, RN Please update ascites flowsheet and repeat BMP in around a week so. Date Weight (lb) Spironolactone Furosemide Na K Cr GFR 11/29/23 138 3.4 0.54 104 6/28/24 119.6 25 mg 10 mg 133 3.7 0.61 101 documented in this encounter Plan of Treatment Upcoming Encounters Date Type Department Care Team (Late st Contact Info) Description 04/02/2024 10:30 EDT Appointment [facility] Interventional Radiology Unit [address] [place] [address] [phone] 04/02/2024 15:15 EDT Office Visit [facility] Surgical Oncology - [address] [phone] Adolfo Carreno MD [address] [place] [phone] 04/05/2024 9:30 EDT Telemedicine [facility] Palliative Care Services [address] [place] [address] [phone] Chichi Woods MD [address] [place] [phone] 04/11/2024 15:00 EDT Telemedicine [facility] Hematology & Oncology [address] 000511 Alisson Carreon MD [address] [place] [address] [phone] 04/13/2024 13:30 EDT Appointment [facility] Hematology & Oncology [address] [phone] 04/13/2024 14:00 EDT Appointment [facility] Hematology & Oncology [address] [phone] 04/16/2024 10:00 EST Telemedicine [facility] Palliative Care Services [address] [place] [address] [phone] Chichi Woods MD [address] [place] [address], [place] [address] [place] [phone] 04/24/2024 9:00 EST Appointment [facility] Radiology CT Outpatient - [address] [id number] 04/24/2024 11:00 EST Appointment [facility] Breast Imaging - [facility] [place] [address] [place], [place] [address] 04/27/2024 12:00 EST Appointment [facility] Hematology & Oncology [address] [phone] 05/02/2024 15:00 EST Telemedicine [facility] Hematology & Oncology [address] 140491 Alisson Carreon MD [address] [place] [address], [facility], Level 2 [place] [phone] 05/04/2024 10:15 EST Ancillary Procedure [facility] Cardiology - [address] [place] [address] 05/04/2024 11:30 EST Appointment [facility] Hematology & Oncology - [address] [phone] 05/04/2024 12:00 EST Appointment [facility] Hematology & Oncology - [address] [phone] 06/12/2024 13:00 EST Appointment [facility] Radiology CT - [address] [phone] documented as of this encounter Visit Diagnoses Not on filedocumented in this encounter Additional Health Concerns Infection Onset Date Last Indicated Resolved Time R/O COVID-19 12/12/2023 12/12/2023 12/12/2023 15:3 5 EDT R/O COVID-19 01/08/2024 01/08/2024 01/08/2024 18:2 6 EDT R/O COVID-19 01/16/2024 01/16/2024 01/16/2024 17:5 0 EDT documented as of this encounter Care Teams Plug Stitcher Relationship Specialty Start Date End Date Linda Blancas MD [facility] [address] [place] [address] PCP - General 01/06/11 Adolfo Carreno MD [address] [place] [address] 2 [place] [phone] General Surgery 04/26/19 Augustina Colin MD PhD [address] [place] [address], [facility] 2 [place] [phone] Medical Oncology 04/26/19 documented as of this encounter
--- OUTSIDE RECORDS SUMMARY | 2024-03-20 14:38 | XMS_ITS | Encounter Summary ---
Author Organization [facility] Address [address] [place] [address] Care Team Providers Care Fire Captain Name Role Phone Linda Blancas MD Primary Care Provider [phone] Adolfo Carreno MD Unavailable [phone] Augustina Colin MD PhD Unavailable Unavailable Reason for Visit * Reason Comments Medications Refill Encounter Details Date Type Department Care Team (Late st Contact Info) Description 12/07/2023 Refill [facility] Cancer Center Hematology & Oncology - [facility] [address] [place] [address] Pavan Garber MD Medications Refill Social History Tobacco Use Types [...] No 03/24/2018 documented as of this encounter Ordered Prescriptions Prescription Sig Dispensed Refills Start Date End Da te apixaban (ELIQUIS) 5 mg tabletIndications:Primary malignant neoplasm of breast with metastasis (HCC-CMS) Take 1 Tablet by mouth 2 times daily. 60 Tablet 11 12/07/2023 03/13/2024 documented in this encounter Miscellaneous Notes * Telephone Encounter - Zulma Acevedo RN - 12/07/2023 1120 EDT Pt requesting refill for: Eliquis Pt last provider visit: 11/29/23 Pt next provider visit: 12/20/23 Last prescription was ordered or refilled on: 11/09/23 Order pended to provider for review, any necessary dose adjustments and signature. Provider reviewed and signed order. documented in this encounter Plan of Treatment Upcoming Encounters Date Type Department Care Team (Late st Contact Info) Description 04/02/2024 10:30 EDT Appointment [facility] Interventional Radiology Unit [address] [place] [phone] 04/02/2024 15:15 EDT Office Visit [facility] Surgical Oncology - [facility] [address] [place] [phone] Adolfo Carreno MD 111 [facility], Level 2 [place] [phone] 04/05/2024 9:30 EDT Telemedicine [facility] - [facility] Palliative Care Services [address] [place] [address] Chichi Woods MD 111 [facility], [address] [phone] 04/11/2024 15:00 EDT Telemedicine [facility] Hematology & Oncology - [address] [phone] Alisson Carreon MD [address] [place] [address], [facility] 2 [place] [phone] 04/13/2024 13:30 EDT Appointment [facility] Hematology & Oncology [address] [phone] 04/13/2024 14:00 EDT Appointment [facility] Hematology & Oncology [address] [phone] 04/16/2024 10:00 EST Telemedicine [facility] - [facility] Palliative Care Services [address] [place] [address] [phone] Chichi Woods MD [address] [place] [address], [address] [phone] 04/24/2024 9:00 EST Appointment [facility] Radiology CT Outpatient - [address] [id number] 04/24/2024 11:00 EST Appointment [facility] Breast Imaging - [address] [id number] 04/27/2024 12:00 EST Appointment [facility] Hematology & Oncology - [address] [phone] 05/02/2024 15:00 EST Telemedicine [facility] Hematology & Oncology - [address] [phone] Alisson Carreon MD [address] [place] [address], [facility] 2 [place] [phone] 05/04/2024 10:15 EST Ancillary Procedure [facility] Cardiology - [address] [place] [address] 05/04/2024 11:30 EST Appointment [facility] Hematology & Oncology [address] [phone] 05/04/2024 12:00 EST Appointment [facility] Hematology & Oncology [address] [phone] 06/12/2024 13:00 EST Appointment [facility] Radiology CT - [address] [phone] documented as of this encounter Visit Diagnoses Diagnosis Primary malignant neoplasm of breast with metastasis (HCC-CMS)- Primary documented in this encounter Discontinued Medications Medication Sig Discontinue Reason Start Date End Da te ibuprofen (MOTRIN) 200 mg tablet Take 2 Tablets by mouth as needed. Patient Discharge 12/07/2023 apixaban (ELIQUIS) 5 mg tabletIndications:Primar y malignant neoplasm of breast with metastasis (HCC-CMS) Take 2 Tablets by mouth 2 times daily for 7 days, THEN 1 Tablet 2 times daily for 23 days. 11/09/2023 12/07/2023 documented as of this encounter Care Teams Fire Captain Relationship Specialty Start Date End Date Linda Blancas MD [facility] [address] [place] [address] PCP - General 01/06/11 Adolfo Carreno MD [address] [place] [phone] General Surgery 04/26/19 Augustina Colin MD PhD [address] [place] [phone] Medical Oncology 04/26/19 documented as of this encounter
--- OUTSIDE RECORDS SUMMARY | 2024-03-20 14:38 | XMS_ITS | Encounter Summary ---
Author Organization [facility] Address [address] [place] [address] Care Team Providers Care Drone Pilot Name Role Phone Linda Blancas MD Primary Care Provider [phone] Adolfo Carreno MD Unavailable [phone] Augustina Colin MD PhD Unavailable Unavailable Encounter Details Date Type Department Care Team (Late st Contact Info) Description 12/09/2023 9:57 EDT Anesthesia Event [facility] OR [address] [place], [place] [address] Evan Knight MD [address] [place] [address], [address] [place] [address] Anesthesia Record Procedure Summary Procedure Name Responsible Anesthesiologist Anesthesia Start Time Anesthesia Stop Time Flexible bronchoscopy (Chest) Evan Knight MD 12/09/23 0957 12/09/23 1044 Events Date Time Event Comment 12/09/2023 0957 An Start The patient was re-evaluated immediately before moderate or deep sedation use, before anesthesia induction, or before the anesthesia procedure. 0957 An Start Data 1003 An Induction The patient was reevaluated immediately before moderate or deep sedation use and before anesthesia induction. 1009 An Intubation 1009 Anesthesia Ready 1039 An Extubation 1040 an stop data 1044 Handoff to RN I completed my handoff to the receiving nurse during which we: 1. Identified the patient 2. Identified the responsible provider 3. Reviewed the pertinent medical history 4. Discussed the surgical course 5. Reviewed intra-op anesthesia management and issues during anesthesia 6. Set expectations for post-procedure period 7. Allowed opportunity for questions and acknowledgement of understanding. 1044 An Stop Meds Name Total fentanyl citrate (PF) injection 100 mcg lidocaine 2% (PF) injection glass vial 6 0 mg propOFol (DIPRIVAN) injection 303,125 mc g dexmedetomidine injection - vial 4 mcg dexAMETHasone (PF) 4 mg/mL pre-filled sy ringe 8 mg naloxone 0.4 mg/mL injection 0.04 mg sodium chloride 0.9 % (NS) infusion 350 mL * Agents Name O2 N2O Air * Blood No blood administrations on file. Lines, Drains, and Airways Type Details Placement Removal IVAD Single Port 11/03/23; 1528; Bard ; Right Chest, Internal Jugular; At bedside by Provider, Ultrasound Guided, IR/Fluoro Guided, Documenting on behalf of someone else (enter name) (Dr. Moya); 8; 2% Lido; (duraprep); Power Inject; Right Atrium; [id number]; [id number]; (Accidentally removed by previous user) 11/03/23 1528 by Marika Charles, SHELLEY Peripheral IV 12/09/23; 0955; 20; Anterior, Right; Forearm; Inserted by RN; 1; None; Chlorhexidine; 12/09/23; 1130; Discharged; No complications, Catheter intact, Dressing applied 12/09/23 0955 by Sandhya Rahman, SHELLEY 12/09/23 1130 by Donald Eldridge, SHELLEY Non-Surgical Airway 12/09/23; 1026 (shaylee david via procedure documentation); 12/09/23; 1039 12/09/23 1026 by Kaylah Wise 12/09/23 1039 by Kaylah Wise documented in this encounter Social History Tobacco [...] No 03/24/2018 documented as of this encounter OR Notes * Anesthesia Postprocedure Evaluation - Kaylah Wise - 12/09/2023 1044 EDT Patient: Sendy Pleitez Vital signs were reviewed with the recovery nurse. Complete vitals history is available in the Epicflowsheets. Vitals Value Taken Time BP 111/67 12/09/23 1044 Temp 36.2 12/09/23 1044 Resp 17 12/09/23 1044 Pulse From Oximetry 95 12/09/23 1044 SpO2 100 12/09/23 1044 Heart Rate 95 12/09/23 1044 Last Pain Score - Numeric Pain Level (Scale 1-10): 7 Type of Anesthesia - general Anesthesia Post Evaluation Post-procedure vitals reviewed and are stable. Level of consciousness: awake and alert and oriented Temperature status: normothermia and patient returned to pre-procedure baseline Respiratory status: airway patent and stable Cardiovascular status: stable and acceptable Hydration status: adequate Nausea/Vomiting: none Pain management: adequate Post-Op Assessment: patient tolerated procedure well with no complications and patient satisfied with anesthesia care Patient participation: able to participate Disposition: outpatient/home Anesthesia Complications: No apparent anesthesia complications * Anesthesia Procedure Notes - Kaylah Wise - 12/09/2023 1025 EDTAssociated Order(s): Airway Airway Date/Time: 12/09/2023 10:09 Urgency: elective Airway not difficult General Information and Staff Patient location during procedure: OR Anesthesiologist: Evan Knight MD Resident/FINANCIAL SALES CONSULTANT: Kaylah Wise Performed: resident/FINANCIAL SALES CONSULTANT/AA and anesthesiologist Performed by: Kaylah Wise Authorized by: Evan Knight MD Indications and Patient Condition Indications for airway management: anesthesia Sedation level: GA Preoxygenated: yes Patient position: sniffing Ventilation assessment: 0 - not attempted Final Airway Details Final airway type: supraglottic airway Successful airway: LMA (iGel) Size 3 Number of attempts at approach: 1 Additional Comments Atraumatic iGel size 3 placement, needed to reposition for adequate seal, functioned well * Anesthesia Preprocedure Evaluation - Evan Knight MD - 12/09/2023 1013 EDT Anesthesia Preprocedure Evaluation Patient Medical History, including Anesthesia History reviewed. Chart and Nursing Notes reviewed, including NPO status and Medication History. Additional ROS/History Findings: Allergies Allergen Reactions Amoxicillin Other (See Comments) and Rash Red rash Sulfa (Sulfonamide Antibiotics) Hives Light lavender rash Sulfamethoxazole-Trimethoprim Rash Review of Systems Constitutional: Negative. HENT: Negative. Eyes: Negative. Respiratory: Positive for cough and shortness of breath. Cardiovascular: Negative. Gastrointestinal: Negative. Genitourinary: Negative. Musculoskeletal: Negative. Skin: Negative. Neurological: Negative. Endo/Heme/Allergies: Negative. Psychiatric/Behavioral: Negative. 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 Acsitiesm Lumbar radicular syndrome Nausea & vomiting Numbness Pulmonary embolism ([facility]) 11.11.23 Reactive airway disease 09.12.23 Shortness of breath 09.12.23 Swelling 11.11.23 Right arm, below waist, both legs Wears glasses Relevant Problems No relevant active problems Physical Exam Airway Mallampati: II Cardiovascular Rhythm: regular Rate: normal Dental - normal exam Pulmonary (+) decreased breath sounds Abdominal Other findings: Mild to moderate ascites Anesthesia Plan ASA 3 Anesthesia Type - general Anesthesia plan and risks discussed. Informed consent obtained from patient. Patient inteerviewed and examined. Chart reviewed. Plan general anesthesia PAT Note Notes from 11/09/23 through 12/09/23 No notes of this type exist for this encounter. documented in this encounter Plan of Treatment Upcoming Encounters Date Type Department Care Team (Late st Contact Info) Description 04/02/2024 10:30 EDT Appointment [facility] Interventional Radiology Unit [address] [place] [address] [phone] 04/02/2024 15:15 EDT Office Visit [facility] Surgical Oncology - [address] [phone] Adolfo Carreno MD [address] [place] [address] [phone] 04/05/2024 9:30 EDT Telemedicine [facility] - [facility] Palliative Care Services [address] [place] [address] [phone] Chichi Woods MD [address] [place] [address] [phone] 04/11/2024 15:00 EDT Telemedicine [facility] Hematology & Oncology - [address] [phone] Alisson Carreon MD [address] [place] [address] [phone] 04/13/2024 13:30 EDT Appointment [facility] Hematology & Oncology - [address] [phone] 04/13/2024 14:00 EDT Appointment [facility] Hematology & Oncology - [address] [phone] 04/16/2024 10:00 EST Telemedicine [facility] - [facility] Palliative Care Services [address] [place] [address] [phone] Chichi Woods MD [address] [place] [address] [phone] 04/24/2024 9:00 EST Appointment [facility] Radiology CT Outpatient - [address] [address] 04/24/2024 11:00 EST Appointment [facility] Breast Imaging - [facility] [address] [phone] 04/27/2024 12:00 EST Appointment [facility] Hematology & Oncology [address] [address] 05/02/2024 15:00 EST Telemedicine [facility] Hematology & Oncology - [address] [address] Alisson Carreon MD [address] [place], [place] [address], [address] [place] [phone] 05/04/2024 10:15 EST Ancillary Procedure [facility] Cardiology [place] [address] [place] [address] 05/04/2024 11:30 EST Appointment [facility] Hematology & Oncology - [address] [phone] 05/04/2024 12:00 EST Appointment [facility] Hematology & Oncology - [address] [address] 06/12/2024 13:00 EST Appointment [facility] Radiology CT - [facility] [address] [place] [address] documented as of this encounter Procedures Procedure Name Priority Date/Time Associated Diagnosis Comments ANESTHESIA INTUBATION Routine 12/09/2023 10:09 EDT documented in this encounter Results * DC AN ELECTIVE SUPRAGLOTTIC AIRWAY (12/09/2023 10:09 EDT) Narrative Kaylah Wise - 12/09/2023 10:09 EDT Kaylah Wise ? 12/09/2023 10:26 Airway Date/Time: 12/09/2023 10:09 Urgency: elective Airway not difficult General Information and Staff Patient location during procedure: OR Anesthesiologist: Evan Knight MD Resident/FINANCIAL SALES CONSULTANT: Kaylah Wise Performed: resident/FINANCIAL SALES CONSULTANT/AA and anesthesiologist Performed by: Kaylah Wise Authorized by: Evan Knight MD ?? Indications and Patient Condition Indications for airway management: anesthesia Sedation level: GA Preoxygenated: yes Patient position: sniffing Ventilation assessment: 0 - not attempted Final Airway Details Final airway type: supraglottic airway Successful airway: LMA (iGel) Size 3 Number of attempts at approach: 1 Additional Comments Atraumatic iGel size 3 placement, needed to reposition for adequate seal, functioned well Evan Knight MD ANESTHESIA ORDERABLE S documented in this encounter Visit Diagnoses Not on filedocumented in this encounter Administered Medications Inactive Administered Medications - up to 3 most recent administrations Medication Order MAR Action Action Date Dose Rate Site dexAMETHasone Sodium Phosphate injection syringe intravenous, PRN, Starting on Tue12/09/23 at 1019, Until Tue12/09/23 at 1044, Routine, Anesthesia Intraprocedure Given 12/09/2023 10:19 EDT 8 mg dexmedeTOMIDine (PRECEDEX) injection intravenous, PRN, Starting on Tue12/09/23 at 1002, Until Tue12/09/23 at 1044, Routine, Anesthesia Intraprocedure Given 12/09/2023 10:02 EDT 4 mcg fentaNYL citrate (PF) injection intravenous, PRN, Starting on Tue12/09/23 at 1004, Until Tue12/09/23 at 1044, Routine, Anesthesia Intraprocedure Given 12/09/2023 10:14 EDT 25 mcg Given 12/09/2023 10:12 EDT 25 mcg Given 12/09/2023 10:04 EDT 50 mcg lidocaine (PF) 20 mg/mL (2 %) injection intravenous, PRN, Starting on Tue12/09/23 at 1004, Until Tue12/09/23 at 1044, Routine, Anesthesia Intraprocedure Given 12/09/2023 10:04 EDT 60 mg naloxone (NARCAN) injection intravenous, PRN, Starting on Tue12/09/23 at 1037, Until Tue12/09/23 at 1044, Routine, Anesthesia Intraprocedure Given 12/09/2023 10:37 EDT 0.04 mg propOFol (DIPRIVAN) injection intravenous, FA IP EQF CONTINUOUS PRN FOR ONE STEP MEDS, Starting on Tue12/09/23 at 1004, Until Tue12/09/23 at 1044, Routine, Anesthesia Intraprocedure Given 12/09/2023 10:17 EDT 20 mg Given 12/09/2023 10:14 EDT 30 mg Rate Change 12/09/2023 10:13 EDT 150 mcg/kg/min 49.5 mL/hr sodium chloride 0.9 % (NS) infusion 25 mL/hr, intravenous, CONTINUOUS, Starting on Tue12/09/23 at 0815, Until Tue12/09/23 at 1338, Routine, Preprocedure Restarted 12/09/2023 10:30 EDT Continued by Anesthesia 12/09/2023 9:57 EDT 25 mL/hr New Bag 12/09/2023 9:56 EDT 25 mL/hr 25 mL/hr documented in this encounter Care Teams Drone Pilot Relationship Specialty Start Date End Date Linda Blancas MD [address] [place] [address] PCP - General 01/06/11 Adolfo Carreno MD [address] [place] [address] [address] [place] [phone] General Surgery 04/26/19 Augustina Colin MD PhD [address] [place] [address] [address] [place] [phone] Medical Oncology 04/26/19 documented as of this encounter
--- OUTSIDE RECORDS SUMMARY | 2024-03-20 14:38 | XMS_ITS | Encounter Summary ---
Author Organization [facility] Address [address] [place] [address] Care Team Providers Care Bindery Helper Name Role Phone Linda Blancas MD Primary Care Provider [phone] Adolfo Carreno MD Unavailable [phone] Augustina Colin MD PhD Unavailable Unavailable Reason for Visit * Reason Onset Date Comments Appointment Related 12/08/2023 Encounter Details Date Type Department Care Team (Late st Contact Info) Description 12/08/2023 Telephone [facility] Pulmonology & Critical Care - [facility] [address] [place], [place] [phone] Nash Beard MD [address] [place] [address], [address] [place] [address] Appointment Related Social History Tobacco Use Types Packs/Day Years Used Date Smoking Tobacco: Never Passive Smoke Exposure: Never Smokeless Tobacco: Never Alcohol Use Standard Drinks/Week Comments Not Currently 1 (1 standard drink = 0.6 oz pur e alcohol) [facility] Utilities Answer Date Recorded In [...] medical appointments or from getting medications? No 06/2023 In the past 12 months, has l ack of transportation kept you from meetings, work, or from getting things needed for daily living? No 12/12/2023 Housing Stability Vital Sign Answer Rubén e Recorded In the last 12 months, was t here a time when you were not able to pay the mortgage or rent on time? No 12/12/2023 In the past 12 months, how m any times have you moved where you were living? 0 12/12/2023 At any time in the past 12 m [facility], were you homeless or living in a fci (including now)? No 12/12/2023 Interpersonal Safety Answer Date Record ed How [...] encounter Miscellaneous Notes * Telephone Encounter - Carly Cortes - 12/08/2023 1332 EDT The cases for Tuesday12/09/23 all moved up. Called patient with updated times for procedure, and to verify they received the instructions left earlier. Arrival time: 6:45 Start time: 8:45 Patient verified they received the instructions left in the voicemail. I verbally repeated them to the patient to ensure understanding. Patient expressed understanding. Patient stated they will be at the hospital at 6:45AM. * Telephone Encounter - Carly Cortes - 12/08/2023 1042 EDT Called patient and left a voicemail with the below instructions. Requested patient call [phone] if they have any questions. Informed the patient that if the times change, they will receive a call with the new times. IMPORTANT BRONCHOSCOPY PATIENT INSTRUCTIONS Your procedure is on 12/09/23 with a scheduled start time of 1020 and an arrival time of 0820. It is important that you have NOTHING TO EAT AFTER MIDNIGHT the night before your procedure. On theday of your procedure you can have clear liquids up until four hours before your scheduled start time. Clear liquids include: Water - Pedialyte - Clear Apple Juice - Clear White Grape Juice. You should take your usual medicines by mouth with a small amount of water. It should be just enough to get your medicines down. You will NEED TO BRING A GROUT MACHINE OPERATOR. You'll be unable to safely drive for 24 hours after your procedureso please make sure you have someone accompany you who'll be able to drive you home. If you are taking any BLOOD THINNERS (Plavix, Coumadin, Warfarin, etc.) please speak with your spring machine operator. If you are taking Asprin there is no need to stop taking it prior to the procedure. If you're taking any GLPI AGONISTS (such as Wegovy, Ozempic, or Semaglutide) please speak with yourpulmonologist NOÉ. On the day of your procedure please check in with Registration on the 3rd floor of the [facility]. From there you'll proceed to the Surgery and Procedures waiting area by following the third floor [facility]. Registration can provide instructions. If you have any questions, concerns, or need clarification about any of the above please call us [phone] or the PFT Lab at . documented in this encounter Plan of Treatment Upcoming Encounters Date Type Department Care Team (Late st Contact Info) Description 04/02/2024 10:30 EDT Appointment [facility] Interventional Radiology Unit [address] [place] [address] [phone] 04/02/2024 15:15 EDT Office Visit [facility] Surgical Oncology [address] [phone] Adolfo Carreno MD [address] [place] [phone] 04/05/2024 9:30 EDT Telemedicine [facility] Palliative Care Services [address] [place] [address] [phone] Chichi Woods MD [address] [place] [address] [phone] 04/11/2024 15:00 EDT Telemedicine [facility] Hematology & Oncology [address] [phone] Alisson Carreon MD [address] [place] [address] [phone] 04/13/2024 13:30 EDT Appointment [facility] Hematology & Oncology [address] [phone] 04/13/2024 14:00 EDT Appointment [facility] Hematology & Oncology [address] [phone] 04/16/2024 10:00 EST Telemedicine [facility] Palliative Care Services [address] [place], [place] 161661 Chichi Woods MD [address] [place] [address], [address] [phone] 04/24/2024 9:00 EST Appointment [facility] Radiology CT Outpatient - [address] [phone] 04/24/2024 11:00 EST Appointment [facility] Breast Imaging - [facility] [address] [place], [place] [phone] 04/27/2024 12:00 EST Appointment [facility] Hematology & Oncology - [address] [phone] 05/02/2024 15:00 EST Telemedicine [facility] Hematology & Oncology - [address] 180071 Alisson Carreon MD [address] [place] [address], [address] [place] [phone] 05/04/2024 10:15 EST Ancillary Procedure [facility] Cardiology - [address] [place] [address] 05/04/2024 11:30 EST Appointment [facility] Hematology & Oncology - [address] [phone] 05/04/2024 12:00 EST Appointment [facility] Hematology & Oncology [address] [phone] 06/12/2024 13:00 EST Appointment [facility] Radiology CT - [address] [phone] documented as of this encounter Visit Diagnoses Not on filedocumented in this encounter Additional Health Concerns Infection Onset Date Last Indicated Resolved Time R/O COVID-19 12/12/2023 12/12/2023 12/12/2023 15:3 5 EDT R/O COVID-19 01/08/2024 01/08/2024 01/08/2024 18:2 6 EDT R/O COVID-19 01/16/2024 01/16/2024 01/16/2024 17:5 0 EDT documented as of this encounter Care Teams Bindery Helper Relationship Specialty Start Date End Date Linda Blancas MD [address] [place] [address] [address] [place] [address] PCP - General 01/06/11 Adolfo Carreno MD [address] [place] [phone] General Surgery 04/26/19 Augustina Colin MD PhD [address] [place] [phone] Medical Oncology 04/26/19 documented as of this encounter
--- OUTSIDE RECORDS SUMMARY | 2024-03-20 14:38 | XMS_ITS | Encounter Summary ---
Author Organization [facility] Address [address] [place] [address] Care Team Providers Care Processing Technician Name Role Phone Linda Blancas MD Primary Care Provider [phone] Adolfo Carreno MD Unavailable [phone] Augustina Colin MD PhD Unavailable Unavailable Reason for Visit * Reason Onset Date Comments Follow-up 12/12/2023 New/Evolving Symptoms 12/12/2023 Encounter Details Date Type Department Care Team (Late st Contact Info) Description 12/12/2023 Telephone [facility] Hematology & Oncology - [facility] [address] [place] [address] Daily, SHELLEY Du Follow-up; New/Evolving Symptoms Social History Tobacco Use Types Packs/Day Years Used Date Smoking Tobacco: Never Passive Smoke Exposure: Never Smokeless Tobacco: Never Alcohol Use Standard Drinks/Week Comments Not Currently 1 (1 standard drink = 0.6 oz pur e alcohol) [facility] Utilities Answer Date Recorded In the past 12 months has th e CV [employer], gas, oil, or water [employer] threatened to shut off services in your [...] living in a long-term (including now)? No 12/13/2023 Interpersonal Safety Answer [...] Encounter - Daily, SHELLEY Du - 12/12/2023 0992 EDT Scheduling spoke with pt's this morning who is concerned about pt, wondering if he should take pt to ER. Called and spoke with Nitish. No desire to eat, pain, and nauseous for the last two days. Oxy at 0300 to help her sleep. 124 pounds, has lost a lot of weight Incoherent from being so tired. Denies bloating. Has not had any meds in 2 days, had nausea medicine two days ago. Couldn't keep down water yesterday. Is moving her bowels. Discussed [place] or [facility] ER with Dr Carreon, let pt know that he should bring pt to [facility] ER to be evaluated/fluids/anti-nausea medication. Will call ER triage to give report. documented in this encounter Plan of Treatment Upcoming Encounters Date Type Department Care Team (Late st Contact Info) Description 04/02/2024 10:30 EDT Appointment [facility] Interventional Radiology Unit [address] [place] [address] 04/02/2024 15:15 EDT Office Visit [facility] Surgical Oncology - [address] [phone] Adolfo Carreno MD [address] [place] [address] 2 [place] [phone] 04/05/2024 9:30 EDT Telemedicine [facility] Palliative Care Services [address] [place] [address] Chichi Woods MD [address] [place] [address], [address] [phone] 04/11/2024 15:00 EDT Telemedicine [facility] Hematology & Oncology - [address] [phone] Alisson Carreon MD [address] [place] [address], [facility] 2 [place] [phone] 04/13/2024 13:30 EDT Appointment [facility] Hematology & Oncology - [address] [phone] 04/13/2024 14:00 EDT Appointment [facility] Hematology & Oncology [address] [address] 04/16/2024 10:00 EST Telemedicine [facility] - [facility] Palliative Care Services [address] [place] [address] [phone] Chichi Woods MD [address] [place] [address], [address] [phone] 04/24/2024 9:00 EST Appointment [facility] Radiology CT Outpatient - [address] 167331 04/24/2024 11:00 EST Appointment [facility] Breast Imaging - [facility] S [address] [phone] 04/27/2024 12:00 EST Appointment [facility] Hematology & Oncology - [address] [phone] 05/02/2024 15:00 EST Telemedicine [facility] Hematology & Oncology [address] 056341 Alisson Carreon MD [address] [place] [address], Level [address] [place] [phone] 05/04/2024 10:15 EST Ancillary Procedure [facility] Cardiology - [place] [address] 05/04/2024 11:30 EST Appointment [facility] Hematology & Oncology - [address] [phone] 05/04/2024 12:00 EST Appointment [facility] Hematology & Oncology - [address] [phone] 06/12/2024 13:00 EST Appointment [facility] Radiology CT - [address] 648141 documented as of this encounter Visit Diagnoses Not on filedocumented in this encounter Care Teams Processing Technician Relationship Specialty Start Date End Date Linda Blancas MD [facility] [address] [place], [place] [address] PCP - General 01/06/11 Adolfo Carreno MD [address] [place] [phone] General Surgery 04/26/19 Augustina Colin MD PhD [address] [place] [address] 2 [place] [phone] Medical Oncology 04/26/19 documented as of this encounter
--- OUTSIDE RECORDS SUMMARY | 2024-03-20 14:38 | XMS_ITS | Encounter Summary ---
Author Organization [facility] Address [address] [place] [address] Care Team Providers Care Retail And Promotions Coordinator Name Role Phone Linda Blancas MD Primary Care Provider [phone] Adolfo Carreno MD Unavailable [phone] Augustina Colin MD PhD Unavailable Unavailable Reason for Referral * Radiology Services (Routine/Next Available) - Authorization Not Required Specialty Diagnoses / Procedures Referred By Contac t Referred To Contact Diagnoses Other ascites Procedures IR PARACENTESIS-RADIOLOGY Hugo Vergara MD PhD [address] [place] [phone] [facility] Referral ID Status Reason Start Date Expiration Date Visits Requested Visits Authorized [id number] Authorization Not Required 11/25/2023 1 1 Reason for Visit * Radiology Services (Routine/Next Available) - Authorization Not Required Specialty Diagnoses / Procedures Referred By Contac t Referred To Contact Diagnoses Other ascites Procedures IR PARACENTESIS-RADIOLOGY Hugo Vergara MD PhD [address] [place] [phone] [facility] Referral ID Status Reason Start Date Expiration Date Visits Requested Visits Authorized [id number] Authorization Not Required 11/25/2023 1 1 Encounter Details Date Type Department Care Team (Late st Contact Info) Description 11/29/2023 7:02 EDT - 11/29/2023 8:48 EDT Hospital Encounter [facility] Interventional Radiology Unit [address] [place], [place] [phone] Uche Wilson PA-C [address] [phone] Danny Hayden MD [address] [phone] Other ascites Discharge Disposition: Home [...] Sign Reading Time Taken Comments Blood Pressure 129/78 11/29/2023 0820 EDT Pulse - - Temperature - - Respiratory Rate 20 11/29/2023 0820 EDT Oxygen Saturation 98% 11/29/2023 0820 EDT Inhaled Oxygen Concentration - - Weight [...] this encounter Discharge Instructions * Discharge Instructions* Garima Parrish RN - 11/29/2023 8:05 EDT Interventional Radiology Discharge Instructions Date: 11/29/2023 Procedure: Paracentesis (removal of fluid from your [...] after your procedure. When to contact the [facility] (call 911 if symptoms are [...] Tablet 2 times daily for 23 days. 74 Tablet 11/09/2023 12/07/2023 dexAMETHasone (DECADRON) 4 mg tabletIndications:Prim hugo malignant neoplasm of breast with metastasis (HCC-CMS) Take 2 Tablets by mouth daily. Take on days 2 and 3 after chemotherapy. 12 Tablet 5 10/17/2023 12/20/2023 gabapentin (NEURONTIN) 100 mg capsule Take 2 Caps by mouth 2 times daily. 360 Cap 3 08/16/2012 12/14/2023 gabapentin (NEURONTIN) 600 mg tablet Take 1 Tablet by mouth every evening. 12/14/2023 ibuprofen (MOTRIN) 200 mg tablet Take 2 Tablets by mouth as needed. 12/07/2023 mv-mn/C/glutamin/lysin /nihd800 (AIRBORNE, ASCORBATE SODIUM, ORAL) Take by mouth [...] for Nausea. 30 Tablet 5 10/17/2023 02/15/2024 venlafaxine (EFFEXOR-XR) 150 mg XR capsule Take 1 Cap by mouth daily. 90 Cap 3 08/16/2012 12/14/2023 documented as of this encounter Discharge Disposition Disposition Code Departure Means Destination Home or Self Care documented in this encounter Progress Notes * Garima Parrish RN - 11/29/2023 0730 EDT Procedure: paracentesis (diagnostic) Pt comes to IR 27 from WR at 0752. Name, , allergies, meds, labs, consent reviewed. Pt A+Ox3. Denies pain/general illness. Pt ambulatory. Reports that the last couple times she came she did not have enough fluid for a para. Pt with her who comes for education. Pt positioned in semi fowlers on stretcher. VS assessed and WNL. Pre US completed with education for by Neil FU. Time out agreed upon by all parties present. Abd prepped with duraprep in the usual fashion by SASHA. Paracentesis completed by Neil Wilson PA-C (Dr. Hayden as attending) w/o incident. Closed with a band aid. CDI. 1700 ml of clear yellow fluid removed. Sent to lab. VS reassessed and stable. Pt d/c from room. Verbalized understanding. [facility]. documented in this encounter Procedure Notes * Uche Wilson PA-C - 11/29/2023 0730 EDT IR Procedure Note Procedure: U/S guided paracentesis Date Performed: 11/29/2023 Radiologist/Collector(s): MD Jackelyn/GRISEL Wilson Sedation/Anesthesia: Local Time Out: A time-out was completed prior to procedure verifying correct patient, procedure, site, positioning, and special equipment if applicable. Estimated Blood Loss: Unless otherwise noted, there was no blood loss, specimens removed, cultures obtained, or drains retained. Specimens: Fluid Fluoroscopy Time: See dictated procedure note Contrast Volume: none Complications: none Condition: stable Post Procedure Diagnosis: Ascites Findings: 1.7 L fluid Recommendations: F/u fluid labs Uche Wilson PA-C 11/29/2023 10:09 documented in this encounter Plan of Treatment Upcoming Encounters Date Type Department Care Team (Late st Contact Info) Description 04/02/2024 10:30 EDT Appointment [facility] Interventional Radiology Unit [address] [place] [address] [phone] 04/02/2024 15:15 EDT Office Visit [facility] Surgical Oncology - [address] [phone] Adolfo Carreno MD 111 [facility], [facility] 2 [place] [phone] 04/05/2024 9:30 EDT Telemedicine [facility] - [facility] Palliative Care Services [address] [place], [place] [address] Chichi Woods MD 111 [facility], [address] [phone] 04/11/2024 15:00 EDT Telemedicine [facility] Hematology & Oncology - [address] [phone] Alisson Carreon MD [address] [place] [address], [facility] 2 [place] [phone] 04/13/2024 13:30 EDT Appointment [facility] Hematology & Oncology - [address] [phone] 04/13/2024 14:00 EDT Appointment [facility] Hematology & Oncology - [address] [phone] 04/16/2024 10:00 EST Telemedicine [facility] - [facility] Palliative Care Services [address] [place] [address] [phone] Chichi Woods MD [address] [place] [address], [address] [phone] 04/24/2024 9:00 EST Appointment [facility] Radiology CT Outpatient - [address] [id number] 04/24/2024 11:00 EST Appointment [facility] Breast Imaging - [address] [phone] 04/27/2024 12:00 EST Appointment [facility] Hematology & Oncology - [address] [phone] 05/02/2024 15:00 EST Telemedicine [facility] Hematology & Oncology - [address] [phone] Alisson Carreon MD [address] [place] [address], [facility] 2 [place] [phone] 05/04/2024 10:15 EST Ancillary Procedure [facility] Cardiology - [address] [place], [place] [phone] 05/04/2024 11:30 EST Appointment [facility] Hematology & Oncology [address] [phone] 05/04/2024 12:00 EST Appointment [facility] Hematology & Oncology [address] 797011 06/12/2024 13:00 EST Appointment [facility] Radiology CT - [address] [phone] documented as of this encounter Procedures Procedure Name Priority Date/Time Associated Diagnosis Comments ALBUMIN Routine 11/29/2023 10:43 EDT Other ascites IR PARACENTESIS-RADIOL OGY Routine 11/29/2023 8:33 EDT Other ascites documented in this encounter Results * (ABNORMAL) ALBUMIN (11/29/2023 10:43 EDT) Albumin 2.8(L) 3.4 - 4.9 g/dL 11/29/2023 11:33 EDT [facility] Blood VENOUS BLOOD / Unknown Port / Unknown 11/29/2023 10:43 EDT 11/29/2023 11:07 EDT Hugo Vergara MD PhD CHEMISTRY & BLO OD GAS ORDERABLES [facility] [address] [place], [place] [phone] * IR PARACENTESIS-RADIOLOGY (11/29/2023 8:33 EDT) Anatomical Region Laterality Modality N/A X-Ray Angiograph y 11/29/2023 10:3 5 EDT Impressions 11/29/2023 10:35 EDT Successful, uncomplicated paracentesis using sonographic guidance yielding ??1.7 L ??fluid. ?? LUNA Arguelles, PA-C Interventional Radiology I have personally reviewed the images and the above interpretation and agree with the findings. [id number] Narrative 11/29/2023 10:35 EDT IR PARACENTESIS-RADIOLOGY ??11/29/2023 7:52 AM Clinical History/Comments: ascites;R18.8:Other ascites Technique and Findings: After obtaining informed consent, sonographic guidance was used to gain percutaneous access to the abdominal ascites collection. All ultrasound images were recorded. A drainage catheter was advanced and a total of ??1.7 ??liters fluid was drained without complication. Finally, the catheter was removed and the puncture site was sterilely bandaged. The patient tolerated procedure well without complication. Resulting Agency Comment [id number] Procedure Note Danny Hayden MD - 11/29/2023 IR PARACENTESIS-RADIOLOGY 11/29/2023 7:52 AM Clinical History/Comments: ascites;R18.8:Other ascites Technique and Findings: After obtaining informed consent, sonographic guidance was used to gainpercutaneous access to the abdominal ascites collection. All ultrasoundimages were recorded. A drainage catheter was advanced and a total of 1.7liters fluid was drained without complication. Finally, the catheter wasremoved and the puncture site was sterilely bandaged. The patienttolerated procedure well without complication. IMPRESSION Successful, uncomplicated paracentesis using sonographic guidance yielding1.7 L fluid. LUNA Arguelles, PA-C Interventional Radiology I have personally reviewed the images and the above interpretation andagree with the findings. [id number] Hugo Vergara MD PhD IMG IR ORDERABL ES documented in this encounter Visit Diagnoses Diagnosis Other ascites documented in this encounter Care Teams Retail And Promotions Coordinator Relationship Specialty Start Date End Date Linda Blancas MD [facility] [address] [place] [address] PCP - General 01/06/11 Adolfo Carreno MD [address] [place] [address], [facility] 2 [place] [phone] General Surgery 04/26/19 Augustina Colin MD PhD 111 [facility], [facility] 2 [place] [address] Medical Oncology 04/26/19 documented as of this encounter
--- OUTSIDE RECORDS SUMMARY | 2024-03-20 14:38 | XMS_ITS | Encounter Summary ---
Author Organization [facility] Address [address] [place] [address] Care Team Providers Care Hall Coordinator Name Role Phone Linda Blancas MD Primary Care Provider [phone] Adolfo Carreno MD Unavailable [phone] Augustina Colin MD PhD Unavailable Unavailable Encounter Details Date Type Department Care Team (Late st Contact Info) Description 11/30/2023 Documentation Visit [facility] Gastroenterology - [address] [address] Hugo Vergara MD PhD [address] [place] [address], [facility] [address] [place] [address] Social History Tobacco Use Types [...] Notes * Hugo Vergara MD PhD - 11/30/2023 1125 EDT [facility] GASTRO[facility]OLOGY AND HEPATOLOGY OUTPATIENT LETTER - 11/30/2023 Alisson Carreon MD [facility] - Hematology-Oncology [address] [place] [address] Patient: Sunshine Pleitez Date of : [address] Carreon: I am writing to provide you with updated information concerning Sunshine Pleitez. As you know, she is a 63-year-old woman with metastatic breast cancer (with hepatic involvement) and recent onsetascites. A paracentesis was performed on 11/29/2023, and 1.7 L of fluid was removed. Analysis of peritoneal fluid demonstrated protein less than 1, albumin less than 1, and normal triglycerides. Additional laboratory data showed white blood cell bilirubin 1.4, alkaline phosphatase count 5.19, hematocrit 27.9, platelets 191, 361, ALT 36, AST 69, albumin 2.8, sodium 138, potassium 3.4, creatinine 0.54. The serum ascites albumin gradient was greater than 1.8. Taken together, these findings are indicative of portal hypertension being the etiology of ascites.The cause of portal hypertension is uncertain, with a differential diagnosis that includes post radioembolization hepatic fibrosis and malignant hepatic infiltration. Heart failure is less likely given the low peritoneal fluid protein concentration. The mainstay of treatment for portal hypertensiveascites is dietary salt restriction, avoidance of nonsteroidal anti- inflammatory drugs, and diuretic therapy. My nursing team will be contacting the patient to initiate a regimen of furosemide 20 mg daily and spironolactone 50 mg daily. We will arrange for weekly laboratory monitoring to ensure the absence of electrolyte imbalance or kidney injury and adjust diuretics accordingly, dependent upon the extentof fluid retention. I anticipate that a steady state of ascites control will be reached within the next month or two. I plan to update you with the status of this at that time. Thank you once again for allowing me to participate in the care of this patient. Should you have any additional questions, please let me know. Sincerely, Hugo [place] MD,PhD cc: MD Linda Dove MD Geoffrey Scriver, MD Maia Stamieszkin, MD documented in this encounter Plan of Treatment Upcoming Encounters Date Type Department Care Team (Late st Contact Info) Description 04/02/2024 10:30 EDT Appointment [facility] Interventional Radiology Unit [address] [place] [phone] 04/02/2024 15:15 EDT Office Visit [facility] Surgical Oncology - [address] [phone] Adolfo Carreno MD [address] [place] [phone] 04/05/2024 9:30 EDT Telemedicine [facility] - [facility] Palliative Care Services [address] [place] [address] [phone] Chichi Woods MD [address] [place] [phone] 04/11/2024 15:00 EDT Telemedicine [facility] Hematology & Oncology [address] [phone] Alisson Carreon MD [address] [place] [phone] 04/13/2024 13:30 EDT Appointment [facility] Hematology & Oncology - [address] [phone] 04/13/2024 14:00 EDT Appointment [facility] Hematology & Oncology - [address] [address] 04/16/2024 10:00 EST Telemedicine [facility] - [facility] Palliative Care Services [address] [place] [address] [phone] Chichi Woods MD [address] [place] [phone] 04/24/2024 9:00 EST Appointment [facility] Radiology CT Outpatient - [address] [address] 04/24/2024 11:00 EST Appointment [facility] Breast Imaging - [facility] S [address] [phone] 04/27/2024 12:00 EST Appointment [facility] Hematology & Oncology [address] [phone] 05/02/2024 15:00 EST Telemedicine [facility] Hematology & Oncology - [address] [address] Alisson Carreon MD [address] [place] [address], Level [address] [place] [phone] 05/04/2024 10:15 EST Ancillary Procedure [facility] Cardiology [place] [place] [address] 05/04/2024 11:30 EST Appointment [facility] Hematology & Oncology - [address] [phone] 05/04/2024 12:00 EST Appointment [facility] Hematology & Oncology - [address] [address] 06/12/2024 13:00 EST Appointment [facility] Radiology CT - [address] [address] documented as of this encounter Visit Diagnoses Not on filedocumented in this encounter Care Teams Hall Coordinator Relationship Specialty Start Date End Date Linda Blancas MD [facility] [address] [place] [address] PCP - General 01/06/11 Adolfo Carreno MD [address] [place] [address] 2 [place] [phone] General Surgery 04/26/19 Augustina Colin MD PhD [address] [place] [address] 2 [place] [phone] Medical Oncology 04/26/19 documented as of this encounter
--- OUTSIDE RECORDS SUMMARY | 2024-03-20 14:38 | XMS_ITS | Encounter Summary ---
Author Organization [facility] Address [address] [place] [address] Care Team Providers Care Housing Grant Analyst Name Role Phone Linda Blancas MD Primary Care Provider [phone] Adolfo Carreno MD Unavailable [phone] Augustina Colin MD PhD Unavailable Unavailable Reason for Visit * Reason Onset Date Comments Coordination Of Care 12/13/2023 Encounter Details Date Type Department Care Team (Late st Contact Info) Description 12/13/2023 Telephone [facility] Hematology & Oncology - [address] [address] Alisson Carreon MD [address] [facility], Level 2 [place] [address] Coordination Of Care Social History Tobacco Use Types Packs/Day Years Used Date Smoking Tobacco: Never Passive Smoke Exposure: Never Smokeless Tobacco: Never Alcohol Use Standard Drinks/Week Comments Not Currently 1 (1 standard drink = 0.6 oz pur e alcohol) [facility] Utilities Answer Date Recorded In the past [...] any time in the past 12 m [facility], were you homeless or living in a halfway (including now)? No 12/13/2023 Interpersonal Safety Answer [...] Encounter - Ana Laura Winn RN - 12/13/2023 1405 EDT Sent secure chat to Hugo Tran DO regarding pt's calling and trying to connect with care team. His number was provided and team calling him back now. * Telephone Encounter - Michelle Christopher - 12/13/2023 1350 EDT Patient's spouse, Nitish, calling frustrated about getting connected to patient's care team. This policy writer tried to connect Nitish to [place] [facility] team, however, Nitish hung up before getting connected. Nitish's call back number is [phone]. This policy writer spoke with Bess on [place] [facility] who advised routing message to Hugo Tran and Criselda Cisneros. This policy writer was able to route to Hugo Tran, however, Criselda Cisneros does not come up as an option for routing. * Telephone Encounter - Mony Rawls - 12/13/2023 1342 EDT Patient's called returning a call from someone with the name Caleb he believes. Patientis on [facility] [employer] currently. Tiller Man tried to get him to the switchboard so he can be transferred to them, he did not want that, states he wants to talk to the care team who is working today. He also said he did not want to speak with nursing, policy writer unsure of how to help him at this point. Caller is frustrated that he can not get back to who called him. Please call back to discuss. documented in this encounter Plan of Treatment Upcoming Encounters Date Type Department Care Team (Late st Contact Info) Description 04/02/2024 10:30 EDT Appointment [facility] Interventional Radiology Unit [address] [place] [address] 04/02/2024 15:15 EDT Office Visit [facility] Surgical Oncology - [address] [phone] Adolfo Carreno MD [address] [place] [address] [phone] 04/05/2024 9:30 EDT Telemedicine [facility] Palliative Care Services [address] [place] [address] [phone] Chichi Woods MD [address] [place] [address] [phone] 04/11/2024 15:00 EDT Telemedicine [facility] Hematology & Oncology - [address] [address] Alisson Carreon MD [address] [place] [address] [phone] 04/13/2024 13:30 EDT Appointment [facility] Hematology & Oncology [address] [phone] 04/13/2024 14:00 EDT Appointment [facility] Hematology & Oncology - [address] [address] 04/16/2024 10:00 EST Telemedicine [facility] Palliative Care Services [address] [place] [address] 310201 Chichi Woods MD [address] [place] [address] [phone] 04/24/2024 9:00 EST Appointment [facility] Radiology CT Outpatient - [address] 508191 04/24/2024 11:00 EST Appointment [facility] Breast Imaging - [facility] 1 [place], [place] 310461 04/27/2024 12:00 EST Appointment [facility] Hematology & Oncology [address] [address] 05/02/2024 15:00 EST Telemedicine [facility] Hematology & Oncology [address] 640491 Alisson Carreon MD [address] [place] [address] 2 [place] [phone] 05/04/2024 10:15 EST Ancillary Procedure [facility] Cardiology - [address] [place], [place] [phone] 05/04/2024 11:30 EST Appointment [facility] Hematology & Oncology [address] [id number] 05/04/2024 12:00 EST Appointment [facility] Hematology & Oncology [address] 530771 06/12/2024 13:00 EST Appointment [facility] Radiology CT - [address] 267941 documented as of this encounter Visit Diagnoses Not on filedocumented in this encounter Care Teams Housing Grant Analyst Relationship Specialty Start Date End Date Linda Blancas MD [facility] [address] [place] [address] PCP - General 01/06/11 Adolfo Carreno MD [address] [place] [address], [facility] 2 [place] [phone] General Surgery 04/26/19 Augustina Colin MD PhD [address] [place] [address], [facility] 2 [place] [phone] Medical Oncology 04/26/19 documented as of this encounter
--- OUTSIDE RECORDS SUMMARY | 2024-03-20 14:39 | XMS_ITS | Encounter Summary ---
Author Organization [facility] Address [address] [place] [address] Care Team Providers Care Business Sales Consultant Name Role Phone Linda Blancas MD Primary Care Provider [phone] Adolfo Carreno MD Unavailable [phone] Augustina Colin MD PhD Unavailable Unavailable Reason for Referral * Test (Routine/Next Available) - Authorization Not Required Specialty Diagnoses / Procedures Referred By Contac t Referred To Contact Diagnoses SOB (shortness of breath) Procedures PULMONARY FUNCTION TESTING Chelsea Logan MD [address] [place] [phone] Referral ID Status Reason Start Date Expiration Date Visits Requested Visits Authorized [id number] Authorization Not Required 10/12/2023 1 1 Reason for Visit * Test (Routine/Next Available) - Authorization Not Required Specialty Diagnoses / Procedures Referred By Contdayanna t Referred To Contact Diagnoses SOB (shortness of breath) Procedures PULMONARY FUNCTION TESTING Chelsea Logan MD [address] [address] Referral ID Status Reason Start Date Expiration Date Visits Requested Visits Authorized [id number] Authorization Not Required 10/12/2023 1 1 Encounter Details Date Type Department Care Team (Latest Contact Info) Description 11/23/2023 7:27 EDT - 11/23/2023 23:59 EDT Hospital Encounter [facility] Pulmonary Function Lab - [address] [address] SOB (shortness of breath) Discharge Disposition: Home or Self Care Social [...] No 03/24/2018 documented as of this encounter Medications at [...] Tablets by mouth as needed. 12/07/2023 mv-mn/C/glutamin/lysin /[id number] (A[place]NE, ASCORBATE SODIUM, ORAL) Take by mouth [...] documented in this encounter Progress Notes * Jo AnnTejal ponce RT - 11/23/2023 0800 EDT Testing was performed and recorded in [facility]. See complete report in Procedures. documented in this encounter Plan of Treatment Upcoming Encounters Date Type Department Care Team (Late st Contact Info) Description 04/02/2024 10:30 EDT Appointment [facility] Interventional Radiology Unit [address] [place] [address] [phone] 04/02/2024 15:15 EDT Office Visit [facility] Surgical Oncology - [address] [phone] Adolfo Carreno MD [address] [place] [phone] 04/05/2024 9:30 EDT Telemedicine [facility] - [facility] Palliative Care Services [address] [place] [address] [phone] Chichi Woods MD [address] [place] [phone] 04/11/2024 15:00 EDT Telemedicine [facility] Hematology & Oncology [address] [phone] Alisson Carreon MD [address] [place] [phone] 04/13/2024 13:30 EDT Appointment [facility] Hematology & Oncology [address] 532861 04/13/2024 14:00 EDT Appointment [facility] Hematology & Oncology [address] [phone] 04/16/2024 10:00 EST Telemedicine [facility] - [facility] Palliative Care Services [address] [place] [address] [phone] Chichi Woods MD [address] [place] [address], [address] [place] [phone] 04/24/2024 9:00 EST Appointment [facility] Radiology CT Outpatient - [address] [id number] 04/24/2024 11:00 EST Appointment [facility] Breast Imaging - [facility] 1 [place], [place] 506111 04/27/2024 12:00 EST Appointment [facility] Hematology & Oncology - [address] [phone] 05/02/2024 15:00 EST Telemedicine [facility] Hematology & Oncology - [address] [address] Alisson Carreon MD [address] [place] [address], [facility], Level 2 [place] [phone] 05/04/2024 10:15 EST Ancillary Procedure [facility] Cardiology [place] [place] [address] 05/04/2024 11:30 EST Appointment [facility] Hematology & Oncology - [address] 722131 05/04/2024 12:00 EST Appointment [facility] Hematology & Oncology [address] [phone] 06/12/2024 13:00 EST Appointment [facility] Radiology CT - [address] [phone] documented as of this encounter Procedures Procedure Name Priority Date/Time Associated Diagnosis Comments PULMONARY FUNCTION TESTING Routine 11/23/2023 7:50 EDT SOB (shortness of breath) documented in this encounter Results * PULMONARY FUNCTION TESTING (11/23/2023 7:50 EDT) 11/23/2023 7:50 EDT Chelsea Logan MD PFT ORDERABLES [facility] PFT documented in this encounter Visit Diagnoses Diagnosis SOB (shortness of breath) Shortness of breath documented in this encounter Administered Medications Inactive Administered Medications - up to 3 most recent administrations Medication Order MAR Action Action Date Dose Rate Site albuterol 90 mcg/actuation inhaler 4 Puff 4 Puff, inhalation, NOW X1, 1 dose, On Tue11/23/23 at 0845, Routine Given 11/23/2023 8:04 EDT 4 Puffs documented in this encounter Orders Medications Ordered That Vj ht Not Have Been Administered Count Last Ordered Date First Ordered Date albuterol 90 mcg/actuation inhaler 4 Puff 1 11/23/2023 documented in this encounter Care Teams Business Sales Consultant Relationship Specialty Start Date End Date Linda Blancas MD [address] [place] [address] PCP - General 01/06/11 Adolfo Carreno MD [address] [place] [phone] General Surgery 04/26/19 Augustina Colin MD PhD [address] [place] [phone] Medical Oncology 04/26/19 documented as of this encounter
--- OUTSIDE RECORDS SUMMARY | 2024-03-20 14:39 | XMS_ITS | Encounter Summary ---
Author Organization [facility] Address [address] [place] [address] Care Team Providers Care Commercial Trailer Truck Driver Name Role Phone Linda Blancas MD Primary Care Provider [phone] Adolfo Carreno MD Unavailable [phone] Augustina Colin MD PhD Unavailable Unavailable Encounter Details Date Type Department Care Team (Late st Contact Info) Description 11/28/2023 Documentation Visit [facility] Center Hematology & Oncology - [facility] [address] [place] [address] Zulma Acevedo RN Social History Tobacco Use Types Packs/Day [...] as of this encounter Progress Notes * Zulma Acevedo RN - 11/28/2023 1346 EDT Alt lab request form faxed to lab for [facility] lab draw on 11/28. Lab kit given to infusion staff for kit lab collection. documented in this encounter Plan of Treatment Upcoming Encounters Date Type Department Care Team (Late st Contact Info) Description 04/02/2024 10:30 EDT Appointment [facility] Interventional Radiology Unit [address] [place] [address] [phone] 04/02/2024 15:15 EDT Office Visit [facility] Surgical Oncology - [address] 029021 Adolfo Carreno MD [address] [place] [address] 2 [place] [phone] 04/05/2024 9:30 EDT Telemedicine [facility] - [facility] Palliative Care Services [address] [place] [address] [phone] Chichi Woods MD [address] [place] [phone] 04/11/2024 15:00 EDT Telemedicine [facility] Hematology & Oncology [address] 587141 Alisson Carreon MD [address] [place] [address] 2 [place] [phone] 04/13/2024 13:30 EDT Appointment [facility] Hematology & Oncology - [address] 059691 04/13/2024 14:00 EDT Appointment [facility] Hematology & Oncology - [address] [address] 04/16/2024 10:00 EST Telemedicine [facility] - [facility] Palliative Care Services [address] [place] [address] [phone] Chichi Woods MD [address] [place] [address], [address] [phone] 04/24/2024 9:[address] [facility] Radiology CT Outpatient - [address] 400131 04/24/2024 11:00 EST Appointment [facility] Breast Imaging - [facility] [address] [phone] 04/27/2024 12:00 EST Appointment [facility] Hematology & Oncology - [address] 130061 05/02/2024 15:00 EST Telemedicine [facility] Hematology & Oncology - [address] 570691 Alisson Carreon MD [address] [place] [address], [facility], Level 2 [place] [phone] 05/04/2024 10:15 EST Ancillary Procedure [facility] Cardiology - [address] [place], [place] [phone] 05/04/2024 11:30 EST Appointment [facility] Hematology & Oncology - [address] 130871 05/04/2024 12:00 EST Appointment [facility] Hematology & Oncology - [address] 408951 06/12/2024 13:00 EST [facility] Rad[facility] - [address] [phone] documented as of this encounter Visit Diagnoses Not on filedocumented in this encounter Care Teams Commercial Trailer Truck Driver Relationship Specialty Start Date End Date Linda Blancas MD [facility] [address] [place] [address] PCP - General 01/06/11 Adolfo Carreno MD [address] [place] [phone] General Surgery 04/26/19 Augustina Colin MD PhD [address] [place] [phone] Medical Oncology 04/26/19 documented as of this encounter
--- OUTSIDE RECORDS SUMMARY | 2024-03-20 14:39 | XMS_ITS | Encounter Summary ---
Author Organization [facility] Address [address] [place] [address] Care Team Providers Care Hob Mill Operator Name Role Phone Linda Blancas MD Primary Care Provider [phone] Adolfo Carreno MD Unavailable [phone] Augustina Colin MD PhD Unavailable Unavailable Encounter Details Date Type Department Care Team (Late st Contact Info) Description 11/14/2023 Documentation Visit [facility] Gastroenterology - [address] [address] Hugo Vergara MD PhD [address] [place] [address], [facility] 5 [place] [phone] Social History Tobacco Use Types Packs/Day Years Used Date Smoking Tobacco: Never Smokeless Tobacco: Never Alcohol Use Standard Drinks/Week Comments Yes 2 (1 standard drink = 0.6 oz pur [...] Notes * Hugo Vergara MD PhD - 11/14/2023 1600 EDT [facility] GASTROENTEROLOGY AND HEPATOLOGY OUTPATIENT LETTER - 11/14/2023 Augustina Colin MD [facility] - Hematology-Oncology [address] [place] [address] Patient: Sunshine Pleitez Date of : [address] Colin: I am writing to provide you with updated information concerning Sunshine Pleitez. As you know, she is a 63-year-old woman with metastatic breast cancer (with hepatic involvement) and recent onsetascites. Cytological analysis of peritoneal fluid obtained on 11/09/2023 showed no evidence of malignancy. My plan had been to arrange for a large-volume paracentesis with peritoneal fluid analysis for total protein, albumin (with simultaneous serum albumin measurement) and lipase. However, on ultrasound today, there was minimal peritoneal fluid present. I do not have a good explanation for apparent spontaneous improvement in ascites, but the overall picture would not be suggestive of peritoneal carcinomatosis. It is conceivable that the patient has other causes of global fluid retention, such as heart disease or nephrotic syndrome. If fluid retention remains ongoing without abdominal distention, evaluation for such causes merits consideration. By contrast, if abdominal distention recurs, repeat ultrasound to confirm the presence of peritoneal fluid should be performed, and the studies I had ordered previously should be performed as well. If,under these conditions, the serum ascites albumin gradient is at least 1.1, please reach out to me silviano paredes for additional input for management of presumed portal hypertensive ascites. Thank you once again for allowing me to participate in the care of this patient. Should you have any additional questions, please let me know. Sincerely, Hugo Vergara MD,PhD cc: MD Alisson Joy MD Julie Foster, MD Geoffrey Scriver, MD Maia Stamieszkin, MD documented in this encounter Plan of Treatment Upcoming Encounters Date Type Department Care Team (Late st Contact Info) Description 04/02/2024 10:30 EDT Appointment [facility] Interventional Radiology Unit [address] [place] [address] [phone] 04/02/2024 15:15 EDT Office Visit [facility] Surgical Oncology - [address] [phone] Adolfo Carreno MD [address] [place] [address] 2 [place] [phone] 04/05/2024 9:30 EDT Telemedicine [facility] - [facility] Palliative Care Services [address] [place] [address] [phone] Chichi Woods MD [address] [place] [phone] 04/11/2024 15:00 EDT Telemedicine [facility] Hematology & Oncology - [address] [phone] Alisson Carreon MD [address] [place] [address] 2 [place] [phone] 04/13/2024 13:30 EDT Appointment [facility] Hematology & Oncology - [address] [phone] 04/13/2024 14:00 EDT Appointment [facility] Hematology & Oncology - [address] 237321 04/16/2024 10:00 EST Telemedicine [facility] - [facility] Palliative Care Services [address] [place], [place] 929071 Chichi Woods MD 111 [facility], [address] [phone] 04/24/2024 9:00 EST Appointment [facility] Radiology CT Outpatient - [address] 645011 04/24/2024 11:00 EST Appointment [facility] Breast Imaging - [address] [phone] 04/27/2024 12:00 EST Appointment [facility] Hematology & Oncology - [address] [phone] 05/02/2024 15:00 EST Telemedicine [facility] Hematology & Oncology - [address] 014921 Alisson Carreon MD [address] [place] [address], Level 2 [place] [phone] 05/04/2024 10:15 EST Ancillary Procedure [facility] Cardiology [place] [address] 05/04/2024 11:30 EST Appointment [facility] Hematology & Oncology - [address] [phone] 05/04/2024 12:00 EST Appointment [facility] Hematology & Oncology - [address] [phone] 06/12/2024 13:00 EST Appointment [facility] Radiology CT - [address] 162951 documented as of this encounter Visit Diagnoses Not on filedocumented in this encounter Care Teams Hob Mill Operator Relationship Specialty Start Date End Date Linda Blancas MD [address] [place] [address] 30 [place] [address] PCP - General 01/06/11 Adolfo Carreno MD [address] [place] [phone] General Surgery 04/26/19 Augustina Colin MD PhD [address] [place] [phone] Medical Oncology 04/26/19 documented as of this encounter
--- OUTSIDE RECORDS SUMMARY | 2024-03-20 14:39 | XMS_ITS | Encounter Summary ---
Author Organization [facility] Address [address] [place] [address] Care Team Providers Care Matting Press Tender Name Role Phone Linda Blancas MD Primary Care Provider [phone] Adolfo Carreno MD Unavailable [phone] Augustina Colin MD PhD Unavailable Unavailable Reason for Visit * Radiology Services (Routine/Next Available) - Authorization Not Required Specialty Diagnoses / Procedures Referred By Contac t Referred To Contact Diagnoses Other ascites Procedures IR LIMITED U/S ABDOMEN IR PARACENTESIS-RADIOLOGY Hugo Vergara MD PhD 111 [facility] 5 [place] [address] [facility] Referral ID Status Reason Start Date Expiration Date Visits Requested Visits Authorized [id number] Authorization Not Required 11/11/2023 1 1 Encounter Details Date Type Department Care Team (Late st Contact Info) Description 11/14/2023 12:36 EDT - 11/14/2023 23:59 EDT Hospital Encounter [facility] Interventional Radiology Unit [address], [place] [address] Shahzad Babb MD [address] [place], [place] [phone] Uche Wilson PA-C 111 [facility] 1 [place] [address] Other ascites Discharge Disposition: Home [...] 2 times daily with breakfast and dinner. MULTIVITS W-CA,FE,OTHER MIN (WOMEN'S DAILY FORMULA ORAL) Take by mouth daily. RED YEAST RICE EXTRACT ORAL Take 1,200 [...] after chemotherapy. 12 Tablet 5 10/17/2023 12/20/2023 elacestrant 345 mg tabletIndications:Prim hugo malignant neoplasm of breast with metastasis (HCC-CMS) Take 345 mg by mouth daily. 30 Tablet 2 08/04/2023 11/23/2023 gabapentin (NEURONTIN) 100 mg capsule Take 2 Caps by mouth 2 times daily. 360 Cap 3 08/16/2012 12/14/2023 gabapentin (NEURONTIN) 600 mg tablet Take 1 Tablet by mouth every evening. 12/14/2023 ibuprofen (MOTRIN) 200 mg tablet Take 2 Tablets by mouth as needed. 12/07/2023 mv-mn/C/glutamin/lysin /ejyn644 (AIRBORNE, ASCORBATE SODIUM, ORAL) Take by mouth as needed. 12/14/2023 OMEPRAZOLE ORAL Take 40 mg by mouth 2 times daily. 11/23/2023 prasterone, dhea, (INTRAROSA) 6.[address] 6.5 mg vaginally daily. 28 Each 4 07/30/2022 12/14/2023 prochlorperazine (COMPAZINE) 10 mg tabletIndications:Prim hugo malignant [...] documented in this encounter Progress Notes * Olga Iniguez RN - 11/14/2023 1300 EDT Patient arrived from home to [address]. Patient is here today for a paracentesis. Procedural consent was completed by TK. All question answered. Patient positioned supine. A pre ultrasound was completed. Not enough fluid to safely drain. Procedure canceled. Discharge instructions reviewed with patient, all questions answered. Brought to the waiting area in stable condition. documented in this encounter Procedure Notes * Uche Wilson PA-C - 11/14/2023 1300 EDT IR Procedure Note Procedure: U/S guided paracentesis Date Performed: 11/14/2023 Radiologist/Geospatial Intelligence Analyst(s): MD Griffin/GRISEL Wilson Sedation/Anesthesia: N/A Time Out: A time-out was completed prior to procedure verifying correct patient, procedure, site, positioning, and special equipment if applicable. Estimated Blood Loss: Unless otherwise noted, there was no blood loss, specimens removed, cultures obtained, or drains retained. Specimens: N/A Fluoroscopy Time: See dictated procedure note Contrast Volume: none Complications: none Condition: stable Post Procedure Diagnosis: Ascites Findings: Ultrasound exam of the abdomen shows small amount of ascites. Paracentesis not performed. Recommendations: F/U IR PRN Uche Wilson PA-C 11/14/2023 13:05 documented in this encounter Plan of Treatment Upcoming Encounters Date Type Department Care Team (Late st Contact Info) Description 04/02/2024 10:30 EDT Appointment [facility] Interventional Radiology Unit [address] [place] [address] [id number] 04/02/2024 15:15 EDT Office Visit [facility] Surgical Oncology - [address] [phone] Adolfo Carreno MD 111 [facility], Level 2 [place] [phone] 04/05/2024 9:30 EDT Telemedicine [facility] Palliative Care Services [address] [place] [address] [phone] Chichi Woods MD 111 [facility], [address] [phone] 04/11/2024 15:00 EDT Telemedicine [facility] Hematology & Oncology - [address] [phone] Alisson Carreon MD [address] [place] [address] 2 [place] [phone] 04/13/2024 13:30 EDT Appointment [facility] Hematology & Oncology - [address] [id number] 04/13/2024 14:00 EDT Appointment [facility] Hematology & Oncology [address] [id number] 04/16/2024 10:00 EST Telemedicine [facility] - [facility] Palliative Care Services [address] [place] [address] 359131 Chichi Woods MD [address] [place] [phone] 04/24/2024 9:[address] [facility] Radiology CT Outpatient - [address] [id number] 04/24/2024 11:00 EST Appointment [facility] Breast Imaging - [address] [phone] 04/27/2024 12:00 EST Appointment [facility] Hematology & Oncology - [address] 748271 05/02/2024 15:00 EST Telemedicine [facility] Hematology & Oncology - [address] 016331 Alisson Carreon MD [address] [place] [address], [facility] 2 [place] [phone] 05/04/2024 10:15 EST Ancillary Procedure [facility] Cardiology - [address] [place] [address] 05/04/2024 11:30 EST Appointment [facility] Hematology & Oncology [address] [address] 05/04/2024 12:00 EST Appointment [facility] Hematology & Oncology [address] [phone] 06/12/2024 13:[address] [facility] Radiology CT - [facility] [address] [place], [place] [phone] documented as of this encounter Procedures Procedure Name Priority Date/Time Associated Diagnosis Comments TRIGLYCERIDES, FLUID Routine 11/29/2023 8:14 EDT Other ascites ALBUMIN, FLUID Routine 11/29/2023 8:14 EDT Other ascites TOTAL PROTEIN, FLUID Routine 11/29/2023 8:14 EDT Other ascites IR LIMITED U/S ABDOMEN Routine 11/14/2023 13:05 EDT Other ascites documented in this encounter Results * TOTAL PROTEIN, FLUID (11/29/2023 8:14 EDT) Total Protein, Fluid <2.0 See Note g/dL 11/29/2023 9:14 EDT [facility] Comment: Ascitic Fluid Reference range unavailable. Clinical correlation required. This Fluid Total Protein assay was developed and its performance characteristics determined by [facility]. ??It has not been cleared or approved by the [place] Food and Drug Administration. Fluid ASCITIC FLUID / Unknown 11/29/2023 8:14 EDT 11/29/2023 8:47 EDT Hugo Vergara MD PhD GEN LAB UNIT CO LLECT ORDERABLES [facility] [address] [place], [place] [phone] * ALBUMIN, FLUID (11/29/2023 8:14 EDT) Albumin, Fluid <1.0 See Note g/dL 11/29/2023 9:14 EDT [facility] Comment: Ascitic Fluid Reference range unavailable. Clinical correlation required. This Fluid Albumin assay was developed and its performance characteristics determined by [facility]. ??It has not been cleared or approved by the Food and Drug Administration. Fluid ASCITIC FLUID / Unknown 11/29/2023 8:14 EDT 11/29/2023 8:47 EDT Hugo Vergara MD PhD GEN LAB UNIT CO LLECT ORDERABLES Performing Organization Address [facility]/State/ZIP Co de Phone Number [facility] [address] [place] [address] * TRIGLYCERIDES, FLUID (11/29/2023 8:14 EDT) Triglycerides, Fluid 24 See Note mg/dL 11/29/2023 9:14 EDT [facility] Comment: Ascitic Fluid Reference range unavailable. Clinical correlation required. This Fluid Triglyceride assay was developed and its performance characteristics determined by [facility]. ??It has not been cleared or approved by the Food and Drug Administration. Fluid ASCITIC FLUID / Unknown 11/29/2023 8:14 EDT 11/29/2023 8:47 EDT Hugo Vergara MD PhD GEN LAB UNIT CO LLECT ORDERABLES [facility] [address] [place] [address] * IR LIMITED U/S ABDOMEN (11/14/2023 13:05 EDT) Anatomical Region Laterality Modality N/A X-Ray Angiograph y 11/14/2023 14:5 4 EDT Impressions 11/14/2023 14:54 EDT Limited ultrasound abdomen. LUNA Arguelles PA-C Interventional Radiology I have personally reviewed the images and the above interpretation and agree with the findings. [id number] Narrative 11/14/2023 14:54 EDT Limited ultrasound abdomen 11/14/23 Ascites Limited ultrasound of abdomen shows small amount of ascites. ??Paracentesis not performed. Resulting Agency Comment [id number] Procedure Note Scriver, David Rowley MD - 11/14/2023 Limited ultrasound abdomen 11/14/23 Ascites Limited ultrasound of abdomen shows small amount of ascites. Paracentesisnot performed. IMPRESSION Limited ultrasound abdomen. LUNA Arguelles PA-C Interventional Radiology I have personally reviewed the images and the above interpretation andagree with the findings. [id number] Hugo Vergara MD PhD IMG IR ORDERABL ES documented in this encounter Visit Diagnoses Diagnosis Other ascites documented in this encounter Care Teams Matting Press Tender Relationship Specialty Start Date End Date Linda Blancas MD [facility] [address] [place] [address] PCP - General 01/06/11 Adolfo Carreno MD [address] [place] [address], [facility] 2 [place] [phone] General Surgery 04/26/19 Augustina Colin MD PhD [address] [place] [address] 2 [place] [phone] Medical Oncology 04/26/19 documented as of this encounter
--- OUTSIDE RECORDS SUMMARY | 2024-03-20 14:39 | XMS_ITS | Encounter Summary ---
Author Organization [facility] Address [address] [place] [address] Care Team Providers Care Natural Resource Specialist Name Role Phone Linda Blancas MD Primary Care Provider [phone] Adolfo Carreno MD Unavailable Augustina Colin MD PhD Unavailable Unavailable Encounter Details Date Type Department Care Team (Late st Contact Info) Description 11/09/2023 Orders Only [facility] Radiology - Main [place] [address] [place] [address] Deric Diallo MD [address] [place], [place] [phone] Social History Tobacco Use Types Packs/Day Years [...] EDT Appointment [facility] Interventional Radiology Unit [address] [place] [address] [phone] 04/02/2024 15:15 EDT Office Visit [facility] Surgical Oncology - [address] 138701 Adolfo Carreno MD [address] [place] [address] 2 [place] [phone] 04/05/2024 9:30 EDT Telemedicine [facility] - [facility] Palliative Care Services [address], [place] [phone] Chichi Woods MD [address] [place] [address], [address] [phone] 04/11/2024 15:00 EDT Telemedicine [facility] Hematology & Oncology - [address] 305141 Alisson Carreon MD [address] [place] [address] 2 [place] [phone] 04/13/2024 13:30 EDT Appointment [facility] Hematology & Oncology - [address] [id number] 04/13/2024 14:00 EDT Appointment [facility] Hematology & Oncology - [address] [id number] 04/16/2024 10:00 EST Telemedicine [facility] - [facility] Palliative Care Services [address] [place] [address] Chichi Woods MD 111 [facility], [address] [phone] 04/24/2024 9:00 EST [facility]ointment [facility] Rad[facility] CT Outpatient - [address] 565011 04/24/2024 11:00 EST Appointment [facility] Breast Imaging - [address] 093171 04/27/2024 12:00 EST Appointment [facility] Hematology & Oncology - [address] [phone] 05/02/2024 15:00 EST Telemedicine [facility] Hematology & Oncology - [address] 737211 Alisson Carreon MD [address] [place] [address], [facility], Level [address] [place] [phone] 05/04/2024 10:15 EST Ancillary Procedure [facility] Cardiology - [place] [address] 05/04/2024 11:30 EST Appointment [facility] Hematology & Oncology - [address] [id number] 05/04/2024 12:00 EST Appointment [facility] Hematology & Oncology - [address] [id number] 06/12/2024 13:00 EST Appointment [facility] Radiology CT - [address] [phone] documented as of this encounter Visit Diagnoses Not on filedocumented in this encounter Care Teams Natural Resource Specialist Relationship Specialty Start Date End Date Linda Blancas MD [address] [place] [address] 30 [place] [address] PCP - General 01/06/11 Adolfo Carreno MD [address] [place] [phone] General Surgery 04/26/19 Augustina Colin MD PhD [address] [place] [phone] Medical Oncology 04/26/19 documented as of this encounter
--- OUTSIDE RECORDS SUMMARY | 2024-03-20 14:39 | XMS_ITS | Encounter Summary ---
Author Organization [facility] Address [address] [place] [address] Care Team Providers Care Drywall Finisher Name Role Phone Linda Blancas MD Primary Care Provider [phone] Adolfo Carreno MD Unavailable [phone] Augustina Colin MD PhD Unavailable Unavailable Reason for Visit * Reason Comments New Patient Visit Cough * Consult (Routine/Next Available) - Receiving Office to Obtain Authorization Specialty Diagnoses / Procedures Referred By [facility] Referred To Contact Pulmonary Disease Diagnoses Malignant neoplasm of right female breast, unspecified estrogen receptor status, unspecified site of breast ([facility]) Augustina Colin MD PhD [facility] Pulmonology [address] [place] [address] Referral ID Status Reason Start Date Expiration Date Visits Requested Visits Authorized [id number] Receiving Office to Obtain Authorization Specialty Services Required 4 1 1 Encounter Details Date Type Department Care Team (Late st Contact Info) Description 11/23/2023 9:00 EDT Office Visit [facility] Pulmonology & Critical Care - [address] [address] Jackie Leach DO 111 [facility], [facility] 5 [place] [phone] Chronic cough (Primary Dx); Gastroesophageal reflux disease, unspecified whether esophagitis present; Malignant neoplasm of right female breast, unspecified estrogen receptor status, unspecified site of breast ([facility]) Social History Tobacco Use Types Packs/Day Years [...] Sign Reading Time Taken Comments Blood Pressure 140/63 11/23/2023 08 EDT Pulse 85 11/23/2023 08 EDT Temperature 36.6 ??C (97.9 ??F) 11/23/2023 08 EDT Respiratory Rate 16 11/23/2023 0826 EDT Oxygen Saturation 98% 11/23/2023 08 EDT Inhaled Oxygen Concentration - - Weight 62.6 kg (138 lb 0.1 oz) 11/23/2023 0826 E DT Height 154.8 cm (5' 0.95) 11/23/2023 0826 EDT Body Mass Index 26.12 11/23/2023 0826 EDT documented in this encounter Functional Status [...] No 03/24/2018 documented as of this encounter Patient Instructions * Patient Instructions* Jackie Leach, - 11/23/2023 9:00 EDT 1. Your pulmonary function testing and CT scans do not appear to show any specific problems in yourlungs that would contribute to cough, such as asthma. Your recent CT scan showed atelectasis, whichis a normal finding when people are exhaling. 2. I do think we should obtain a bronchoscopy to make sure that there is nothing within your airways. I am going to work on the timing on this and be in touch about when we will schedule this. 3. I think the primary roll off driver of your cough is from GERD from the increased intra-abdominal pressure. Please increase your omeprazole to 40 mg twice daily and take on an empty stomach. 4. Keep an eye on whether the prednisone improves your cough as we could consider an inhaler if this is the case. 5. Please review the lifestyle interventions I have attached including going to bed on an empty stomach, raising the head of the bed, and avoiding trigger foods with smaller meals. 6. If this still does not help your cough, we can check in about adding a second medication called famotidine or Pepcid. * Attachments The following attachments cannot be sent through Care Everywhere. * GERD (Monegasque) * Acid-Reducing Medicines: General Info (Monegasque) documented in this encounter Ordered Prescriptions Prescription Sig Dispensed Refills Start Date End Da te omeprazole (PRILOSEC) 40 mg capsuleIndications:Gastro esophageal reflux disease, unspecified whether esophagitis present Take 1 Capsule by mouth 2 times daily. 60 Capsule 11 11/23/2023 documented in this encounter Progress Notes * Jackie Leach DO - 11/23/2023 0900 EDT PULMONARY CLINIC NEW PATIENT VISIT 11/23/2023 [...] and was admitted for 10 days at [facility], although patient reports that she felt full [...] Take by mouth daily., Disp: , Rfl: mv-mn/C/glutamin/lysin/emaa836 (AIRBORNE, ASCORBATE SODIUM, ORAL), Take by mouth [...] [place] in single family home built in Mold/mildew: None Heat: Forced hot air and heat pump, wood stove - does not bother Pets: 1 dog - 3 years old Occupation: [employer] stopped working 6 years ago - was [...] 92 1.86 No sig BD change ASSESSMENT: Sunshineenma Pleitez is a 63 y.o. female with [...] Contact Info) Description 04/02/2024 10:30 EDT Appointment [facility] Interventional Radiology Unit [address] [place] [address] 04/02/2024 15:15 EDT Office Visit [facility] Surgical Oncology - [address] [phone] Adolfo Carreno MD [address] [place] [phone] 04/05/2024 9:30 EDT Telemedicine [facility] Palliative Care Services [address] [place] [address] [phone] Chichi Woods MD [address] [place] [phone] 04/11/2024 15:00 EDT Telemedicine [facility] Hematology & Oncology - [address] [phone] Alisson Carreon MD [address] [place] [address] [phone] 04/13/2024 13:30 EDT Appointment [facility] Hematology & Oncology - [address] [phone] 04/13/2024 14:00 EDT Appointment [facility] Hematology & Oncology - [address] [address] 04/16/2024 10:00 EST Telemedicine [facility] Palliative Care Services [address] [place] [address] 709751 Chichi Woods MD [address] [place] [address] [phone] 04/24/2024 9:[address] [facility] Radiology CT Outpatient - [address] [address] 04/24/2024 11:00 EST Appointment [facility] Breast Imaging - [facility] [address] [place] [address] 04/27/2024 12:00 EST Appointment [facility] Hematology & Oncology [address] [address] 05/02/2024 15:00 EST Telemedicine [facility] Hematology & Oncology [address] [address] Alisson Carreon MD [address] [place] [address], Level [address] [place] [phone] 05/04/2024 10:15 EST Ancillary Procedure [facility] Cardiology - [address] [place] [address] 05/04/2024 11:30 EST Appointment [facility] Hematology & Oncology [address] [address] 05/04/2024 12:00 EST Appointment [facility] Hematology & Oncology [address] [phone] 06/12/2024 13:[address] [facility] Radiology CT - [address] [phone] documented as of this encounter Visit Diagnoses Diagnosis Chronic cough- Primary Cough Gastroesophageal reflux disease, unspecified whether esophagitis present Malignant neoplasm of right female breast, unspecified estrogen receptor status, unspecified site of breast (HCC-CMS) documented in this encounter Discontinued Medications Medication Sig Discontinue Reason Start Date End Da te elacestrant 345 mg tabletIndications:Primary malignant neoplasm of breast with metastasis (HCC-CMS) Take 345 mg by mouth daily. Side effects 08/04/2023 11/23/2023 OMEPRAZOLE ORAL Take 40 mg by mouth 2 times daily. Reorder 11/23/2023 documented as of this encounter Orders Case Request Count Last Ordered Date First Orde red Date CASE REQUEST OPERATING ROOM 1 11/23/2023 documented in this encounter Care Teams Drywall Finisher Relationship Specialty Start Date End Date Linda Blancas MD [facility] [address] [place] [address] PCP - General 01/06/11 Adolfo Carreno MD [address] [place] [address] 2 [place] [phone] General Surgery 04/26/19 Augustina Colin MD PhD [address] [place] [phone] Medical Oncology 04/26/19 documented as of this encounter
--- OUTSIDE RECORDS SUMMARY | 2024-03-20 14:39 | XMS_ITS | Encounter Summary ---
Author Organization [facility] Address [address] [place] [address] Care Team Providers Care Sock Drier Name Role Phone Linda Blancas MD Primary Care Provider [phone] Adolfo Carreno MD Unavailable [phone] Augustina Colin MD PhD Unavailable Unavailable Reason for Visit * Reason Onset Date Comments Follow-up 11/23/2023 Encounter Details Date Type Department Care Team (Late st Contact Info) Description 11/23/2023 Telephone [facility] Cancer Center Hematology & Oncology - Main Central [address], [place] [phone] Zulma Acevedo RN Follow-up Social History Tobacco [...] Telephone Encounter - Zulma Acevedo RN - 11/23/2023 1618 EDT Call placed to patient to check in on how she was doing in terms of her energy levels and appetite since starting the daily prednisone. Pt reports, everything is going really well. She feels the Prednisone is giving her a decent amount of energy, her appetite is stable, weight is stable, and she is moving her bowels. She is still a little distended, but will monitor her distention and weight and reach out if she notices an increase. She reports her lower body swelling is better but still present, worse when spends a lot of the day up and active. Improves when she rests and elevates. She continues to take her Eliquis, but does not the occasional pain in her L forearm. Pt encouraged to reach out if the pain worsens or does not go away, pt reports no further swelling in the L arm. She had her pulmonary appointment today which she said went well, passed her PFTs but they are going to order a bronchoscopy. She says they are also attributing her cough to her Gerd and they have increased her omeprazole. Pt feels that she needs someone to help her with scheduling all her appointments. Pt offered to be connected to social work, however, does not want to be connected at this time. Pt to reach out with any additional questions or concerns. * Telephone Encounter - Zulma Acevedo RN - 11/23/2023 1329 EDT Call placed to patient to check in to see how her appetite and energy were doing after started on Prednisone 10mg daily. Pt did not answer, left VM with call back number. documented in this encounter Plan of Treatment Upcoming Encounters Date Type Department Care Team (Late st Contact Info) Description 04/02/2024 10:30 EDT Appointment [facility] Interventional Radiology Unit [address] [place] [address] [phone] 04/02/2024 15:15 EDT Office Visit [facility] Surgical Oncology - [address] [phone] Adolfo Carreno MD [address] [place] [address] 2 [place] [phone] 04/05/2024 9:30 EDT Telemedicine [facility] Palliative Care Services [address] [place] [address] [phone] Chichi Woods MD [address] [place] [address] [phone] 04/11/2024 15:00 EDT Telemedicine [facility] Hematology & Oncology [address] [phone] Alisson Carreon MD [address] [place] [address] [phone] 04/13/2024 13:30 EDT Appointment [facility] Hematology & Oncology [address] [phone] 04/13/2024 14:00 EDT Appointment [facility] Hematology & Oncology [address] [phone] 04/16/2024 10:00 EST Telemedicine [facility] Palliative Care Services [address] [place] [address] [phone] Chichi Woods MD [address] [place] [address], [address] [phone] 04/24/2024 9:00 EST Appointment [facility] Radiology CT Outpatient - [address] [id number] 04/24/2024 11:00 EST Appointment [facility] Breast Imaging - [facility] [address] [place] [address] [place], [place] 058551 04/27/2024 12:00 EST Appointment [facility] Hematology & Oncology [address] [id number] 05/02/2024 15:00 EST Telemedicine [facility] Hematology & Oncology [address] [phone] Alisson Carreon MD [address] [place] [address], Level [address] [place] [phone] 05/04/2024 10:15 EST Ancillary Procedure [facility] Cardiology - [address] [place], [place] [phone] 05/04/2024 11:30 EST Appointment [facility] Hematology & Oncology [address] [id number] 05/04/2024 12:00 EST Appointment [facility] Hematology & Oncology [address] 844371 06/12/2024 13:00 EST Appointment [facility] Radiology CT - [address] [phone] documented as of this encounter Visit Diagnoses Not on filedocumented in this encounter Care Teams Sock Drier Relationship Specialty Start Date End Date Linda Blancas MD [facility] [address] [place] [address] PCP - General 01/06/11 Adolfo Carreno MD [address] [place] [address] 2 [place] [phone] General Surgery 04/26/19 Augustina Colin MD PhD [address] [place] [address] 2 [place] [phone] Medical Oncology 04/26/19 documented as of this encounter
--- OUTSIDE RECORDS SUMMARY | 2024-03-20 14:39 | XMS_ITS | Encounter Summary ---
Author Organization [facility] Address [address] [place] [address] Care Team Providers Care Motel Front Desk Attendant Name Role Phone Linda Blancas MD Primary Care Provider Adolfo Carreno MD Unavailable [phone] Augustina Colin MD PhD Unavailable Unavailable Reason for Visit * Reason Comments New Patient Visit EST/LID/PER NETTIE Encounter Details Date Type Department Care Team (Late st Contact Info) Description 11/11/2023 10:20 EDT Telemedicine [facility] Gastroenterology - [address] [phone] Hugo Vergara MD PhD [address] [place] [address], [address] [place] [phone] Other ascites (Primary Dx) Social History Tobacco Use Types [...] as of this encounter Progress Notes * Lonnie Madrid MA - 11/11/2023 1020 EDT The concept of ???Telemedicine?? has been described [...] for copays, deductible or coinsurance for this service.TELEMEDICINE VIDEO VISIT Today's visit was provided through telemedicine video conferencing: I have reviewed the appropriateness of using video technology with the patient with regards to today's visit. The location of the patient : Home (where patient lives) Patient location state: Visit Location State: [place] The location of the provider: Office Provider location state: Visit Location State: [place] The following people and their roles were present for today's visit: Appointment Provider: Hugo Vergara MD PhD LONNIE MADRID MA documented in this encounter Consult Notes * Hugo Vergara MD PhD - 11/11/2023 1020 EDT [facility] GASTROENTEROLOGY AND HEPATOLOGY CONSULTATION - 11/11/2023 Augustina Colin MD [facility] - Hematology-Oncology [address] [place] [address] Colin: This is to let you know that I have seen Sunshine Pleitez at the request of my colleague Nettie Sánchez APRN. I saw the patient via a video link. As you know, Ms Pleitez is a 63-year-old woman with recent onset ascites. She has a history of metastatic breast cancer with hepatic involvement and underwent radioembolization in the fall 2021. Because of continued metastatic spread involvinglung, the patient was started on elacestran in August 2023. This was followed by rapid fluid retention and constipation. Elacestran was changed to tastuzumab-deruxtecan infusion earlier this week. Thepatient experienced rapid fluid retention with ascites, labial swelling, and leg edema. She was seen in the emergency department on 11/09/2023. A chest CT demonstrated evidence of subsegmental pulmonary emboli. A CT scan of the abdomen demonstrated stable intrahepatic metastases, ascites, and splenomegaly. A paracentesis did not show evidence of spontaneous bacterial peritonitis. Peritoneal fluid analysis was not performed for total protein or albumin, and peritoneal fluid cytology is currently pending. Apixaban was initiated. There is no known history of chronic liver disease, and prior serological testing has demonstrated a negative hepatitis B core antibody, negative hepatitis B surface antigen, and negative hepatitis C antibody. Past health is otherwise significant for gastroesophageal reflux. Family history is notable for a brother who underwent liver transplantation for hepatitis C. The patient is and lives with her . She consumes no more than 1 alcoholic beverage per week. Current medications include apixaban, dexamethasone, Effexor, gabapentin, and omeprazole. Laboratory data obtained on 11/08/2023 show white blood cell count 6.30, hematocrit 33.4, platelets 288, INR 1.1, bilirubin 1.5, alkaline phosphatase 422, ALT 59, AST 116, albumin 2.7, sodium 137, creatinine 0.58. In summary, Ms Pleitez has recent onset of ascites in a background of metastatic cancer. The major differential diagnosis is peritoneal carcinomatosis versus portal hypertension (potentially due to malignant hepatic infiltration, hepatic fibrosis from prior radioembolization, or conceivably cardiac disease). To distinguish between these possibilities as well as to provide symptomatic relief, I will arrange for a large-volume paracentesis with peritoneal fluid analysis. Of note, there are nocontraindications to this procedure despite the use of apixaban. I will be in touch with you and the patient when the results are available, and additional recommendations will follow. Thank you once again for allowing me to see this patient in consultation with you. Should you have any further questions regarding this evaluation, please feel free to contact me at any time. Sincerely, Hugo Vergara MD,PhD cc: MD Alisson Joy MD Julie Foster, MD Geoffrey Scriver, MD Maia Stamieszkin, MD ---- TELEMEDICINE VIDEO VISIT Today's visit was provided through telemedicine video conferencing: I have reviewed the appropriateness of using video technology with the patient with regards to today's visit. The location of the patient: Home The location of the provider: Remote Office The following people and their roles were present for today's visit: Hugo Vergara MD PhD The concept of ???Telemedicine?? has been described [...] in patient???s medical or mental health care. I spent a total of 40 minutes on the date of this encounter meeting with the patient and reviewing documentation/coordinating care as described in the above note. documented in this encounter Plan of Treatment Upcoming Encounters Date Type Department Care Team (Late st Contact Info) Description 04/02/2024 10:30 EDT Appointment [facility] Interventional Radiology Unit [address] [place] [address] 04/02/2024 15:15 EDT Office Visit [facility] Surgical Oncology - [address] [address] Adolfo Carreno MD [address] [place] [address] 2 [place] [phone] 04/05/2024 9:30 EDT Telemedicine [facility] Palliative Care Services [address] [place] [address] 190921 Chichi Woods MD [address] [place] [address] [phone] 04/11/2024 15:00 EDT Telemedicine [facility] Hematology & Oncology - [address] [phone] Alisson Carreon MD [address] [place] [address] 2 [place] [phone] 04/13/2024 13:30 EDT Appointment [facility] Hematology & Oncology - [address] [id number] 04/13/2024 14:00 EDT Appointment [facility] Hematology & Oncology - [address] [phone] 04/16/2024 10:[address] [facility] - [facility] Palliative Care Services [address] [place] [address] [phone] Chichi Woods MD [address] [place] [address] [phone] 04/24/2024 9:00 EST Appointment [facility] Radiology CT Outpatient - [address] [id number] 04/24/2024 11:00 EST Appointment [facility] Breast Imaging - [address] [id number] 04/27/2024 12:00 EST Appointment [facility] Hematology & Oncology - [address] [id number] 05/02/2024 15:00 EST Telemedicine [facility] Hematology & Oncology [address] [address] Alisson Carreon MD [address] [place] [address] 2 [place] [phone] 05/04/2024 10:15 EST Ancillary Procedure [facility] Cardiology - [address] [place], [place] [phone] 05/04/2024 11:30 EST Appointment [facility] Hematology & Oncology [address] [address] 05/04/2024 12:00 EST Appointment [facility] Hematology & Oncology [address] [id number] 06/12/2024 13:00 EST Appointment [facility] Radiology CT - [address] [phone] documented as of this encounter Visit Diagnoses Diagnosis Other ascites- Primary documented in this encounter Care Teams Motel Front Desk Attendant Relationship Specialty Start Date End Date Linda Blancas MD [address] [place] [address] 30 [place] [address] PCP - General 01/06/11 Adolfo Carreno MD [address] [place] [address] [phone] General Surgery 04/26/19 Augustina Colin MD PhD [address] [place] [address] 2 [place] [phone] Medical Oncology 04/26/19 documented as of this encounter
--- OUTSIDE RECORDS SUMMARY | 2024-03-20 14:39 | XMS_ITS | Encounter Summary ---
Author Organization [facility] Address [address] [place] [address] Care Team Providers Care Board Lining Machine Operator Name Role Phone Linda Blancas MD Primary Care Provider [phone] Adolfo Carreno MD Unavailable Augustina Colin MD PhD Unavailable Unavailable Encounter Details Date Type Department Care Team (Late st Contact Info) Description 11/23/2023 Orders Only [facility] Cancer Center Hematology & Oncology - [facility] [address] [place] [address] Augutsina Colin, PhD Social History Tobacco Use Types Packs/Day Years [...] Description 04/02/2024 10:30 EDT Appointment [facility] Interventional Radiology Unit [address] [place] [address] [phone] 04/02/2024 15:15 EDT Office Visit [facility] Surgical Oncology - [address] [phone] Adolfo Carreno MD [address] [place] [address] 2 [place] [phone] 04/05/2024 9:30 EDT Telemedicine [facility] - [facility] Palliative Care Services [address] [place] [address] [phone] Chichi Woods MD [address] [place] [address] [phone] 04/11/2024 15:00 EDT Telemedicine [facility] Hematology & Oncology [address] [phone] Alisson Carreon MD [address] [place] [address] [phone] 04/13/2024 13:30 EDT Appointment [facility] Hematology & Oncology [address] [id number] 04/13/2024 14:00 EDT Appointment [facility] Hematology & Oncology [address] [id number] 04/16/2024 10:00 EST Telemedicine [facility] - [facility] Palliative Care Services [address] [place] [address] [phone] Chichi Woods MD [address] [place] [address], [address] [phone] 04/24/2024 9:00 EST Appointment [facility] Radiology CT Outpatient - [address] [phone] 04/24/2024 11:00 EST Appointment [facility] Breast Imaging - [facility] [address] [place] 1 [place], [place] 124201 04/27/2024 12:00 EST Appointment [facility] Hematology & Oncology - [address] [phone] 05/02/2024 15:00 EST Telemedicine [facility] Hematology & Oncology - [address] 960001 Alisson Carreon MD [address] [place] [address], [address] [place] [phone] 05/04/2024 10:15 EST Ancillary Procedure [facility] Cardiology - [place] [address] 05/04/2024 11:30 EST Appointment [facility] Hematology & Oncology - [address] 911031 05/04/2024 12:00 EST Appointment [facility] Hematology & Oncology - [address] [phone] 06/12/2024 13:00 EST Appointment [facility] Radiology CT - [address] [phone] documented as of this encounter Visit Diagnoses Not on filedocumented in this encounter Additional Health Concerns Infection Onset Date Last Indicated Resolved Time R/O COVID-19 12/12/2023 12/12/2023 12/12/2023 15:3 5 EDT R/O COVID-19 01/08/2024 01/08/2024 01/08/2024 18:2 6 EDT R/O COVID-19 01/16/2024 01/16/2024 01/16/2024 17:5 0 EDT documented as of this encounter Care Teams Board Lining Machine Operator Relationship Specialty Start Date End Date Linda Blancas MD [facility] [address] [place] [address] PCP - General 01/06/11 Adolfo Carreno MD [address] [place] [address] 2 [place] [phone] General Surgery 04/26/19 Augustina Colin MD PhD [address] [place] [address] 2 [place] [phone] Medical Oncology 04/26/19 documented as of this encounter
--- OUTSIDE RECORDS SUMMARY | 2024-03-20 14:39 | XMS_ITS | Encounter Summary ---
Author Organization [facility] Address [address] [place] [address] Care Team Providers Care Stuntman Name Role Phone Linda Blancas MD Primary Care Provider [phone] Adolfo Carreno MD Unavailable [phone] Augustina Colin MD PhD Unavailable Unavailable Reason for Referral * Radiology Services (Routine/Next Available) - Authorization Not Required Specialty Diagnoses / Procedures Referred By [facility] t Referred To Contact Diagnoses Other ascites Procedures IR PARACENTESIS-RADIOLOGY Hugo Vergara MD PhD [address] [phone] [facility] Referral ID Status Reason Start Date Expiration Date Visits Requested Visits Authorized [id number] Authorization Not Required 11/25/2023 1 1 Reason for Visit * Reason Onset Date Comments Other 11/25/2023 Encounter Details Date Type Department Care Team (Late st Contact Info) Description 11/25/2023 Telephone [facility] Gastroenterology - [address] [phone] Hugo Vergara MD PhD [address] [place] [address] [phone] Other Social History Tobacco Use Types Packs/Day [...] Telephone Encounter - Yovana Bowman RN - 11/25/2023 1618 EDT IR paracentesis ordered with fluid analysis and serum (see lab orders)- per Dr. Vergara. * Telephone Encounter - Yovana Bowman RN - 11/25/2023 1545 EDT Patient ( and ) are very confident that she has fluid in her abdomen. She is comparing her abdomen to what is was like a few weeks ago when she saw IR ( 11/14/23). She feels that the amount of fluid in her abdomen is at least 3 times greater. She is coughing a lot more which is an indication for her that she has fluid on board. Current weight is 137 pounds. Suggested that she be evaluated at her appointment next week, but she states that this is an infusion appointment. She would like to set up the paracentesis. documented in this encounter Plan of Treatment Upcoming Encounters Date Type Department Care Team (Late st Contact Info) Description 04/02/2024 10:30 EDT Appointment [facility] Interventional Radiology Unit [address] [place] [address] [phone] 04/02/2024 15:15 EDT Office Visit [facility] Surgical Oncology - [address] [phone] Adolfo Carreno MD [address] [place] [address] [phone] 04/05/2024 9:30 EDT Telemedicine [facility] Palliative Care Services [address] [place] [address] [phone] Chichi Woods MD [address] [place] [address] [phone] 04/11/2024 15:00 EDT Telemedicine [facility] Hematology & Oncology [address] [phone] Alisson Carreon MD [address] [place] [address] [phone] 04/13/2024 13:30 EDT Appointment [facility] Hematology & Oncology [address] [phone] 04/13/2024 14:00 EDT Appointment [facility] Hematology & Oncology [address] 745121 04/16/2024 10:00 EST Telemedicine [facility] Palliative Care Services [address] [place], [place] 134911 Chichi Woods MD 111 [facility] [place] [address] [place] [phone] 04/24/2024 9:00 EST Appointment [facility] Radiology CT Outpatient - [address] [phone] 04/24/2024 11:00 EST Appointment [facility] Breast Imaging - [facility] 1 [place], [place] 372321 04/27/2024 12:00 EST Appointment [facility] Hematology & Oncology - [address] 133591 05/02/2024 15:00 EST Telemedicine [facility] Hematology & Oncology - [address] [phone] Alisson Carreon MD [address] [place] [address], [facility], Level [address] [place] [phone] 05/04/2024 10:15 EST Ancillary Procedure [facility] Cardiology - [address] [place], [place] [phone] 05/04/2024 11:30 EST Appointment [facility] Hematology & Oncology - [address] [phone] 05/04/2024 12:00 EST Appointment [facility] Hematology & Oncology [address] [phone] 06/12/2024 13:00 EST Appointment [facility] Radiology CT - [address] [phone] documented as of this encounter Results * (ABNORMAL) ALBUMIN (11/29/2023 10:43 EDT) Albumin 2.8(L) 3.4 - 4.9 g/dL 11/29/2023 11:33 EDT [facility] Blood VENOUS BLOOD / Unknown Port / Unknown 11/29/2023 10:43 EDT 11/29/2023 11:07 EDT Hugo Vergara MD PhD CHEMISTRY & BLO OD GAS ORDERABLES [facility] [address] [place], [place] [phone] * IR PARACENTESIS-RADIOLOGY (11/29/2023 8:33 EDT) Anatomical Region Laterality Modality N/A X-Ray Angiograph y 11/29/2023 10:3 5 EDT Impressions 11/29/2023 10:35 EDT Successful, uncomplicated paracentesis using sonographic guidance yielding ??1.7 L ??fluid. ?? LUNA Arguelles, PA-C Interventional Radiology I have personally reviewed the images and the above interpretation and agree with the findings. [id number] Narrative 11/29/2023 10:35 EDT IR PARACENTESIS-RADIOLOGY ??11/29/2023 [...] procedure well without complication. Resulting Agency Comment [id number] Procedure Note Danny Hayden MD - 11/29/2023 [...] the above interpretation andagree with the findings. [id number] Hugo Vergara MD PhD IMG IR ORDERABL ES documented in this encounter Visit Diagnoses Diagnosis Other ascites- Primary Other ascites documented in this encounter Care Teams Stuntman Relationship Specialty Start Date End Date Linda Blancas MD [facility] [address] [place] [address] PCP - General 01/06/11 Adolfo Carreno MD [address] [place] [address], [facility] 2 [place] [phone] General Surgery 04/26/19 Augustina Colin MD PhD [address] [place] [address], [facility] 2 [place] [phone] Medical Oncology 04/26/19 documented as of this encounter
--- OUTSIDE RECORDS SUMMARY | 2024-03-20 14:39 | XMS_ITS | Encounter Summary ---
Author Organization [facility] Address [address] [place] [address] Care Team Providers Care Chemical Laboratory Scientist Name Role Phone Linda Blancas MD Primary Care Provider [phone] Adolfo Carreno MD Unavailable [phone] Augustina Colin MD PhD Unavailable Unavailable Reason for Visit * Reason Onset Date Comments Medications Refill 11/11/2023 Encounter Details Date Type Department Care Team (Late st Contact Info) Description 11/11/2023 Telephone [facility] Hematology & Oncology - [facility] [place] [address], [place] [phone] Augustina Colin, PhD Medications Refill Social History Tobacco Use Types [...] Telephone Encounter - Zulma Acevedo RN - 11/11/2023 1605 EDT Call placed to [facility] to let know that patient would not need a refill as she is no longer taking the Elacestrant. [facility] appreciative of call. No further questions. * Telephone Encounter - Fady Nobles - 11/11/[address] [facility] Incoming Call Medication Issue/PA Request Medication [facility] [place] [place] [facility] [address] [place], [place] [address], [place] [address] Fax- [phone] Will the patient be out of medication in the next 3 days? Ricky Nobles 11/11/2023 11:12 documented in this encounter Plan of Treatment Upcoming Encounters Date Type Department Care Team (Late st Contact Info) Description 04/02/2024 10:[address] [facility] Interventional Radiology Unit [address] [place] [address] [phone] 04/02/2024 15:[address] [facility] Surgical Oncology - [facility] [address], [place] [phone] Adolfo Carreno MD 111 [facility], Level [address] [place] [phone] 04/05/2024 9:30 EDT Telemedicine [facility] - [facility] Palliative Care Services [address] [place] [address] [phone] Chichi Woods MD [address] [place] [address] [phone] 04/11/2024 15:00 EDT Telemedicine [facility] Hematology & Oncology [address] 143261 Alisson Carreon MD [address] [place] [address], Level [address] [place] [phone] 04/13/2024 13:30 EDT Appointment [facility] Hematology & Oncology [address] [phone] 04/13/2024 14:00 EDT Appointment [facility] Hematology & Oncology [address] [phone] 04/16/2024 10:00 EST Telemedicine [facility] - [facility] Palliative Care Services [address] [place] [address] [phone] Chichi Woods MD [address] [place] [address] [phone] 04/24/2024 9:00 EST Appointment [facility] Radiology CT Outpatient - [address] [id number] 04/24/2024 11:[address] [facility] Breast Imaging - [address] 933781 04/27/2024 12:00 EST Appointment [facility] Hematology & Oncology - [address] 735191 05/02/2024 15:00 EST Telemedicine [facility] Hematology & Oncology - [address] 513111 Alisson Carreon MD [address] [place] [address] 2 [place] [phone] 05/04/2024 10:[address] [facility] Cardiology - [place] [address] [place] [address] 05/04/2024 11:30 EST Appointment [facility] Hematology & Oncology - [address] [phone] 05/04/2024 12:00 EST Appointment [facility] Hematology & Oncology [address] [phone] 06/12/2024 13:00 EST Appointment [facility] Radiology CT - [address] [phone] documented as of this encounter Visit Diagnoses Not on filedocumented in this encounter Care Teams Chemical Laboratory Scientist Relationship Specialty Start Date End Date Linda Blancas MD [facility] [address] [place] [address] PCP - General 01/06/11 Adolfo Carreno MD [address] [place] [address] [phone] General Surgery 04/26/19 Augustina Colin MD PhD [address] [place] [phone] Medical Oncology 04/26/19 documented as of this encounter
--- OUTSIDE RECORDS SUMMARY | 2024-03-20 14:39 | XMS_ITS | Encounter Summary ---
Author Organization [facility] Address [address] [place] [address] Care Team Providers Care Purchasing Manager/Sales Name Role Phone Linda Blancas MD Primary Care Provider [phone] Adolfo Carreno MD Unavailable [phone] Augustina Colin MD PhD Unavailable Unavailable Reason for Visit * Reason Onset Date Comments Appointment Related 11/28/2023 Encounter Details Date Type Department Care Team (Late st Contact Info) Description 11/28/2023 Telephone [facility] Cancer Center Hematology & Oncology - [address] [phone] Alisson Carreon MD 111 [facility], Level 2 [place] [phone] Appointment Related Social History Tobacco Use Types [...] * Telephone Encounter - Sandhya Estrada - 11/28/2023 1129 EDT Patient called regarding 11/28 appts. Patient was able to move IR paracentesis from Tuesday to Tuesday - same day as treatment. Patient called to coordinate clinic appts. Patient drives from long distance and was trying to coordinate appts to have them on the same day. Spoke with survey director - TM to advise. TM added time to chair for labs so [facility] appt could becancelled. All other appts will stay as scheduled. Patient updated and she confirmed 11/28 appt schedule documented in this encounter Plan of Treatment Upcoming Encounters Date Type Department Care Team (Late st Contact Info) Description 04/02/2024 10:30 EDT Appointment [facility] Interventional Radiology Unit [address] [place] [address] [phone] 04/02/2024 15:15 EDT Office Visit [facility] Surgical Oncology - [facility] [address] [place], [place] [phone] Adolfo Carreno MD 111 [facility], Level 2 [place] [phone] 04/05/2024 9:30 EDT Telemedicine [facility] - [facility] Palliative Care Services [address] [place], [place] [phone] Chichi Woods MD [address] [place] [address] 262 [place] [phone] 04/11/2024 15:00 EDT Telemedicine [facility] Hematology & Oncology - [address] [phone] Alisson Carreon MD [address] [place] [address], Level [address] [place] [phone] 04/13/2024 13:30 EDT Appointment [facility] Hematology & Oncology [address] [phone] 04/13/2024 14:00 EDT Appointment [facility] Hematology & Oncology [address] [phone] 04/16/2024 10:00 EST Telemedicine [facility] - [facility] Palliative Care Services [address] [place] [address] [phone] Chichi Woods MD [address] [place] [address] [phone] 04/24/2024 9:00 EST Appointment [facility] Radiology CT Outpatient - [address] 230021 04/24/2024 11:00 EST Appointment [facility] Breast Imaging - [facility] [address] 267651 04/27/2024 12:00 EST Appointment [facility] Hematology & Oncology [address] 127271 05/02/2024 15:00 EST Telemedicine [facility] Hematology & Oncology - [address] 928111 Alisson Carreon MD [address] [place] [address] [phone] 05/04/2024 10:15 EST Ancillary Procedure [facility] Cardiology - [address] [place] [address] 05/04/2024 11:30 EST Appointment [facility] Hematology & Oncology [address] [phone] 05/04/2024 12:00 EST Appointment [facility] Hematology & Oncology [address] [phone] 06/12/2024 13:00 EST Appointment [facility] Radiology CT - [address] 886201 documented as of this encounter Visit Diagnoses Not on filedocumented in this encounter Care Teams Purchasing Manager/Sales Relationship Specialty Start Date End Date Linda Blancas MD [facility] [address] [place] [address] PCP - General 01/06/11 Adolfo Carreno MD [address] [place] [address] [phone] General Surgery 04/26/19 Augustina Colin MD PhD [address] [place] [phone] Medical Oncology 04/26/19 documented as of this encounter
--- OUTSIDE RECORDS SUMMARY | 2024-03-20 14:39 | XMS_ITS | Encounter Summary ---
Author Organization [facility] Address [address] [place] [address] Care Team Providers Care Survey Chief Name Role Phone Linda Blancas MD Primary Care Provider [phone] Adolfo Carreno MD Unavailable [phone] Augustina Colin MD PhD Unavailable Unavailable Reason for Referral * Radiology Services (Routine/Next Available) - Authorization Not Required Specialty Diagnoses / Procedures Referred By Contac t Referred To Contact Nuclear Medicine Diagnoses Primary malignant neoplasm of breast with metastasis (HCC-CMS) Procedures NM BONE WHOLE BODY Augustina Colin MD PhD [facility] Referral ID Status Reason Start Date Expiration Date Visits Requested Visits Authorized [id number] Authorization Not Required 10/21/2023 1 1 Reason for Visit * Radiology Services (Routine/Next Available) - Authorization Not Required Specialty Diagnoses / Procedures Referred By Contac t Referred To Contact Nuclear Medicine Diagnoses Primary malignant neoplasm of breast with metastasis (HCC-CMS) Procedures NM BONE WHOLE BODY Augustina Colin MD PhD [facility] Referral ID Status Reason Start Date Expiration Date Visits Requested Visits Authorized [id number] Authorization Not Required 10/21/2023 1 1 Encounter Details Date Type Department Care Team (Latest Contact Info) Description 11/25/2023 10:50 EDT - 11/25/2023 23:59 EDT Hospital Encounter [facility] Radiology Nuclear Medicine and PET - [facility] [address] [place], [place] 0[address] Primary malignant neoplasm of breast with metastasis [...] Tablets by mouth as needed. 12/07/2023 mv-mn/C/glutamin/lysin /[id number] (AIRBORNE, ASCORBATE SODIUM, ORAL) Take by mouth [...] 10:30 EDT Appointment [facility] Interventional Radiology Unit [address] [place] [address] 04/02/2024 15:15 EDT Office Visit [facility] Surgical Oncology - [address] [phone] Adolfo Carreno MD [address] [place] [address] [phone] 04/05/2024 9:30 EDT Telemedicine [facility] Palliative Care Services [address] [place] [address] [phone] Chichi Woods MD [address] [place] [address] [phone] 04/11/2024 15:00 EDT Telemedicine [facility] Hematology & Oncology - [address] [phone] Alisson Carreon MD [address] [place] [address] [phone] 04/13/2024 13:30 EDT Appointment [facility] Hematology & Oncology - [address] [phone] 04/13/2024 14:00 EDT Appointment [facility] Hematology & Oncology - [address] 535261 04/16/2024 10:00 EST Telemedicine [facility] Palliative Care Services [address] [place] [address] [phone] Chichi Woods MD [address] [place] [address] [phone] 04/24/2024 9:00 EST Appointment [facility] Radiology CT Outpatient - [address] [phone] 04/24/2024 11:00 EST Appointment [facility] Breast Imaging - [facility] [address] [place] [address] 04/27/2024 12:00 EST Appointment [facility] Hematology & Oncology [address] [address] 05/02/2024 15:00 EST Telemedicine [facility] Hematology & Oncology [address] [phone] Alisson Carreon MD [address] [place] [address], Level 2 [place] [phone] 05/04/2024 10:15 EST Ancillary Procedure [facility] Cardiology - [address] [place] [address] 05/04/2024 11:30 EST Appointment [facility] Hematology & Oncology - [address] [phone] 05/04/2024 12:00 EST Appointment [facility] Hematology & Oncology [address] 955461 06/12/2024 13:00 EST Appointment [facility] Radiology CT - [address] [phone] documented as of this encounter Procedures Procedure Name Priority Date/Time Associated Diagnosis Comments DE BONE WHOLE BODY Routine 11/25/2023 14 :13 EDT Primary malignant neoplasm of breast with metastasis (HCC-CMS) documented in this encounter Results * NM BONE WHOLE BODY (11/25/2023 14:13 EDT) Anatomical Region Laterality Modality Nuclear Medicine 11/25/2023 14:4 9 EDT Impressions 11/25/2023 14:49 EDT 1. ??New focus of uptake involving the left posterolateral ninth rib when compared to prior bone scan on 06/21/2023 is concerning for new osseous metastasis, although an interval fracture could have a similar appearance. No identifiable correlate on most recent chest CT on 11/09/2023. Correlate with history. 2. ??Osseous metastatic disease is otherwise similar to prior. 3. ??Faint diffuse uptake overlying the abdominal cavity, likely corresponding to ascites. Uptake raises the possibility of malignant ascites although it is noted that patient underwent peritoneal fluid sampling on 11/09/2023 which yielded no malignant cells. I have personally reviewed the images and the above interpretation and agree with the findings. [id number] Narrative 11/25/2023 14:49 EDT NM BONE WHOLE BODY ??11/25/2023 11:00 AM Signs and Symptoms: ??pt w/ metastatic breast cancer; Breast cancer, invasive, [...] the L1-L2 disc space corresponding to discogenic endplate changes is also similar to prior. Right iliac and proximal left humeral head lesions appear similar to prior. Periarticular uptake again seen within both feet, similar to prior. Faint diffuse uptake overlying the abdomen. Resulting Agency Comment [id number] Procedure Note Merry Dooley MD - 11/25/2023 NM BONE WHOLE BODY 11/25/2023 11:00 AM Signs and Symptoms: pt w/ metastatic breast cancer; Breast cancer,invasive, stage IV, pre-therapy or re-staging; pt w/ metastatic breastcancer;C50.919:Primary malignant neoplasm of breast with metastasis(HCC-CMS) Comparison: CT abdomen/pelvis in 11/09/2023. Technique: Approximately two hours after the IV injection of 18.1 mCi Tc-99m MDP,anterior and posterior whole body bone images were obtained. Findings: Redemonstrated foci of increased radiotracer uptake within the mid andlower cervical spine, similar to prior. Foci of increased uptake within the left second rib and posterior rightsixth rib are similar to prior, the latter of which corresponds to apathologic fracture. There is a new focus of uptake within the left posterolateral ninth rib,adjacent to another pre-existing lesion medially. Redemonstrated focus of uptake involving the left T11 transverse process,similar to prior. Uptake at the L1-L2 disc space corresponding todiscogenic endplate changes is also similar to prior. Right iliac and proximal left humeral head lesions appear similar toprior. Periarticular uptake again seen within both feet, similar to prior. Faint diffuse uptake overlying the abdomen. IMPRESSION 1. New focus of uptake involving the left posterolateral ninth rib whencompared to prior bone scan on 06/21/2023 is concerning for new osseousmetastasis, although an interval fracture could have a similar appearance.No identifiable correlate on most recent chest CT on 11/09/2023. Correlatewith history. 2. Osseous metastatic disease is otherwise similar to prior. 3. Faint diffuse uptake overlying the abdominal cavity, likelycorresponding to ascites. Uptake raises the possibility of malignantascites although it is noted that patient underwent peritoneal fluidsampling on 11/09/2023 which yielded no malignant cells. I have personally reviewed the images and the above interpretation andagree with the findings. [id number] Augustina Colin MD PhD IMG NM ORDERABLES documented in this encounter Visit Diagnoses Diagnosis Primary malignant neoplasm of breast with metastasis (HCC-CMS) documented in this encounter Administered Medications Inactive Administered Medications - up to 3 most recent administrations Medication Order MAR Action Action Date Dose Rate Site technetium (Tc-99m) methylene diphosphonate (MDP) injection 18 millicurie 18 millicurie, radiopharm IV, NOW X1, 1 dose, On Tue11/25/23 at 1130, Routine, Imaging Protocol Orders Given 11/25/2023 11:00 EDT 18.1 millicuries Right ACF documented in this encounter Orders Medications Ordered That Vj ht Not Have Been Administered Count Last Ordered Date First Ordered Date technetium (Tc-99m) methylen e diphosphonate (MDP) injection 18 millicurie 1 11/25/2023 documented in this encounter Care Teams Survey Chief Relationship Specialty Start Date End Date Linda Blancas MD [facility] [address] [place] [address] PCP - General 01/06/11 Adolfo Carreno MD [address] [place] [phone] General Surgery 04/26/19 Augustina Colin MD PhD [address] [place] [phone] Medical Oncology 04/26/19 documented as of this encounter
--- OUTSIDE RECORDS SUMMARY | 2024-03-20 14:39 | XMS_ITS | Encounter Summary ---
Author Organization [facility] Address [address] [place] [address] Care Team Providers Care Purchasing Supervisor Name Role Phone Linda Blancas MD Primary Care Provider [phone] Adolfo Carreno MD Unavailable [phone] Augustina Colin MD PhD Unavailable Unavailable Reason for Visit * Reason Comments IR Procedure Follow-up Encounter Details Date Type Department Care Team (Late st Contact Info) Description 11/16/2023 8:30 EDT Telemedicine [facility] Interventional Radiology - [address] [phone] David Moya MD 111 [facility], Level 1 [place] [phone] Metastases to the liver (HCC-CMS) (Primary Dx) [...] Progress Notes * David Moya MD - 11/16/2023 0830 EDT Subjective: Patient ID: Sunshine Pleitez is an 63 y.o. female. Chief Complaint Patient presents with IR Procedure Follow-up Type of visit: Televideo Oncologist: Dr. Carreon HPI 63 y.o. female seen in followup after transarterial radioembolization of the liver. Patient with a history of metastatic breast cancer with extrahepatic metastases to her mediastinum, cervical lymph nodes, lungs, and bones, who was found to have liver specific disease progression. On 04/08/2022, she underwent right lobar conventional dose transarterial radioembolization of the liver. This was followed by a left lobar conventional dose transarterial radioembolization on 05/14/2022. Patient tolerated these procedures well. In the interim, patient has developed disease progression in both her liver and extrahepatic sites, and therefore her systemic therapy has been modified. More recently, patient has been found to have ascites which appears benign on cytologic evaluation, and is thought to be related to portal hypertension. Patient has been seeing Dr. Vergara. CT 11/09/2023 reveals stable multifocal metastases throughout both lobes of her liver. Labs 11/08/2023 significant for creatinine 0.6, albumin 2.7, total bilirubin 1.5, platelets 288, CA 27-29 1185 (was 1196), INR 1.1. Patient Active Problem List Diagnosis Papanicolaou smear [...] with metastasis ([facility]) Malignant neoplasm of female breast ([facility]) Encounter for palliative care Osteopenia S/P breast reconstruction, right Lipoma of back Retinal tear of left eye PVD (posterior vitreous detachment), both eyes Bilateral retinal lattice degeneration Dry eye syndrome of both eyes Epiretinal membrane (ERM) of left eye Past Medical History: Diagnosis Date Acquired spondylolisthesis Activity, other involving cardiorespiratory exercise snow shoeing Allergy Arthritis right big toe Back pain spinal fussion no issues currently 08/25/20 Breast cancer ([facility]) 11/2003 DCIS - right breast Breast cancer, right ([facility]) Depression 08/25/20 well controlled Environmental allergies Exercise involving walking GERD (gastroesophageal reflux disease) well controlled 08/25/20 H/O spinal fusion L3-S1 spinal fusion 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 History of general anesthesia Lumbar radicular syndrome Nausea & vomiting Numbness Wears glasses Past Surgical History: Procedure Laterality Date BACK SURGERY December 2011 L3 - S1 spinal decompression and fusion - pt has hardware in place-[place] no complications BREAST RECONSTRUCTION 01/30/2004 subpectoral implant - [place] no complications BREAST RECONSTRUCTION 05/2018 right - [place] no complications BREAST SURGERY 01/30/2004 Right mastectomy - [place] no complications BREAST SURGERY 08/2018 electronic specialist placed right breast - [place] no complications CARPAL TUNNEL RELEASE 200705/07/2019 beir block - no complications FOOT SURGERY 05/2021 right big toe fused, right little toe screw LIPOMA RESECTION 200005/07/2019 [place] no complications MASTECTOMY Right AL INSJ/RPLCMT BREAST IMPLANT Feb MASTECTOMY Bilateral 05/30/2019 Exchange right tissue electronic specialist to silicone implant, exchange of left implant for matching performedby Tylor Boss MD at [facility] OR Family History Problem Relation Age of Onset Cancer Father bladder Stroke Mother Cancer Brother 59 esophageal Stroke Brother Liver Disease Brother Cancer Maternal Uncle bladder Breast Cancer Paternal Aunt 35 Cancer Paternal Aunt 35 breast Social Social History Tobacco Use Smoking status: Never Smokeless tobacco: Never Vaping Use Vaping status: Never Used Substance Use Topics Alcohol use: Yes Alcohol/week: 2.0 standard drinks of alcohol Types: 2 Glasses of wine per week Drug use: No No outpatient medications have been marked as taking for the 11/16/23 encounter (Telemedicine) with David Moya MD. Allergies Allergen Reactions Amoxicillin Other (See Comments) and Rash Red rash Sulfa (Sulfonamide Antibiotics) Hives Light lavender rash Sulfamethoxazole-Trimethoprim Rash ROS - See HPI Objective: There were no vitals taken for this visit. Physical Exam Not performed Assessment: 63-year-old female with multifocal breast cancer liver metastases, currently doing well. Her canceroverall appears to be stable, however ongoing imaging surveillance is warranted. Hepatology is helping to manage her ascites, and is still evaluating this to determine the etiology. While she does have significant liver metastases, in the setting of new portal hypertension which may be related to scarring from prior radioembolization, there is no indication for repeat liver directed therapy at this time. In the setting of liver specific disease progression, with stable extrahepatic disease, then consideration could be made for repeat radioembolization of the liver. Plan: Sunshine was seen today for ir procedure follow-up. Diagnoses and all orders for this visit: Metastases to the liver (HCC-CMS) Follow-up office visit in 3 months time. I spent 30 minutes in disease review, image review, counseling, treatment planning and coordinationof care as described in the progress note. [...] Info) Description 04/02/2024 10:30 EDT Appointment [facility] Inter[facility] Radiology Unit [address] [place] [address] [phone] 04/02/2024 15:15 EDT Office Visit [facility] Surgical Oncology - [address] [phone] Adolfo Carreno MD [address] [place] [address] [phone] 04/05/2024 9:30 EDT Telemedicine [facility] Palliative Care Services [address] [place] [address] [phone] Chichi Woods MD [address] [place] [address] [phone] 04/11/2024 15:00 EDT Telemedicine [facility] Hematology & Oncology [address] 208721 Alisson Carreon MD [address] [place] [address] [phone] 04/13/2024 13:30 EDT Appointment [facility] Hematology & Oncology [address] [id number] 04/13/2024 14:00 EDT Appointment [facility] Hematology & Oncology [address] [phone] 04/16/2024 10:00 EST Telemedicine [facility] Palliative Care Services [address] [place] [address] [phone] Chichi Woods MD [address] [place] [address], [address] [place] [phone] 04/24/2024 9:00 EST Appointment [facility] Radiology CT Outpatient - [address] [id number] 04/24/2024 11:00 EST Appointment [facility] - [facility] [address] [place], [place] 562881 04/27/2024 12:00 EST Appointment [facility] Hematology & Oncology [address] [phone] 05/02/2024 15:00 EST Telemedicine [facility] Hematology & Oncology [address] [phone] Alisson Carreon MD [address] [place] [address], Level 2 [place] [phone] 05/04/2024 10:15 EST Ancillary Procedure [facility] Cardiology - [address] [place] [address] 05/04/2024 11:30 EST Appointment [facility] Hematology & Oncology - [address] [phone] 05/04/2024 12:00 EST Appointment [facility] Hematology & Oncology - [address] [phone] 06/12/2024 13:00 EST Appointment [facility] Radiology CT - [address] [phone] documented as of this encounter Visit Diagnoses Diagnosis Metastases to the liver (HCC-CMS)- Primary Secondary malignant neoplasm of liver documented in this encounter Care Teams Purchasing Supervisor Relationship Specialty Start Date End Date Linda Blancas MD [facility] [address] [place] [address] PCP - General 01/06/11 Adolfo Carreno MD [address] [place] [address] [phone] General Surgery 04/26/19 Augustina Colin MD PhD [address] [place] [phone] Medical Oncology 04/26/19 documented as of this encounter
--- OUTSIDE RECORDS SUMMARY | 2024-03-20 14:39 | XMS_ITS | Encounter Summary ---
Author Organization [facility] Address [address] [place] [address] Care Team Providers Care Molded Candles Wicker Name Role Phone Linda Blancas MD Primary Care Provider [phone] Adolfo Carreno MD Unavailable Augustina Colin MD PhD Unavailable Unavailable Reason for Referral * Consult (Routine/Next Available) - Closed Specialty Diagnoses / Procedures Referred By [facility] Referred To Contact Diagnoses Primary malignant neoplasm of breast with metastasis (HCC-CMS) Augustina Colin MD PhD [facility] Palliative Care [address] [place] [address] Referral ID Status Reason Start Date Expiration Date V isits Requested Visits Authorized [id number] Closed Specialty Services Required 11/16/2023 1 1 Question Answer Symptom Management: Yes - poor apetite/ low energy/ edema Reason for Visit * Reason Onset Date Comments Follow-up 11/15/2023 Encounter Details Date Type Department Care Team (Late st Contact Info) Description 11/15/2023 Telephone [facility] Hematology & Oncology - [place] [address] [place], [place] 192901 Zulma Acevedo, RN Follow-up Social History Tobacco Use Types [...] daily with breakfast. 30 Tablet 11/16/2023 12/20/2023 documented in this encounter Miscellaneous Notes * Telephone Encounter - Zulma Acevedo RN - 11/16/2023 0946 EDT Called patient to follow up supervisor stone with patient and on 11/14. Pt was hoping for some solutions to her low energy and appetite. Discussed with providers who suggested the addition of [id number] daily as well as adding in a palliative consult. Pt made aware of suggestions and orders beingplaced. [address] message sent with pt education on Prednisone. Patient feels that both additions will be good for her. Also discussed pt status today, reports she feels like she is less swollen, she is monitoring her weights, and having regular bowel movements now. She does report some swelling in her abdomen but is aware to call if her weight increases or the swelling worsens. Pt reports her breathing and couching are slightly worse than they had been but has f/u with pulmonary next week and knows to go to ED with anything acute. Palliative consult signed and prednisone prescription pended odell for review and signature. * Telephone Encounter - Zulma Acevedo RN - 11/15/2023 0059 EDT Call placed to patient to check in to see how she was feelings. Pt had recent appointment with GI where a paracentesis was not indicated as there was not a great enough accumulation of fluids to tap.Pt confirms she is doing well, reports her abdominal distention is being monitored along with her weights. She feels that her distention is improved. She is having Bms every 2 days at this time, taking Miralax as directed. She reports her appetite is down but is trying to taking in 3 small meals per day, hydrating well, voiding clear yellow urine. She reports her L arm swelling is minimal in comparison to prior, slight swelling in her L palm. Reports legs/ ankles swelling is improved. 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 Pt aware to report any new or worsening swelling or additional symptoms. Pt would also like to have provider input on if she could potentially take the decadron more frequently as it makes her energy + appetite better than they have been in a while. Pt made aware that it is not recommended that pts be on steroids for long periods of time or unnecessarily. However, this RN did report that she would consult provider andlook at potential alternatives to improve her energy and appetite. Pt in agreement with this plan. Pt aware to reach out for any questions or concerns. Guardant orders for 11/28 set up at this time. Pt has lab appointment. Guardant kit set up for patient lab draw + Non bruner order placed. Will provide kit to lab staff on 11/28 and have patient sign consent. documented in this encounter Plan of Treatment Upcoming Encounters Date Type Department Care Team (Late st Contact Info) Description 04/02/2024 10:30 EDT Appointment [facility] Interventional Radiology Unit [address] [place] [id number] 04/02/2024 15:15 EDT Office Visit [facility] Surgical Oncology - [address] [phone] Adolfo Carreno MD [address] [place] [address] [phone] 04/05/2024 9:30 EDT Telemedicine [facility] Palliative Care Services [address] [place] [address] [phone] Chichi Woods MD [address] [place] [address] [phone] 04/11/2024 15:00 EDT Telemedicine [facility] Hematology & Oncology - [address] [phone] Alisson Carreon MD [address] [place] [address] [phone] 04/13/2024 13:30 EDT Appointment [facility] Hematology & Oncology - [address] [phone] 04/13/2024 14:00 EDT Appointment [facility] Hematology & Oncology - [address] [address] 04/16/2024 10:00 EST Telemedicine [facility] Palliative Care Services [address] [place] [address] [phone] Chichi Woods MD [address] [place] [address] [phone] 04/24/2024 9:00 EST Appointment [facility] Radiology CT Outpatient - [address] [address] 04/24/2024 11:00 EST Appointment [facility] Breast Imaging - [facility] [address] [place] [address] [place], [place] [address]201 04/27/2024 12:00 EST Appointment [facility] Hematology & Oncology [address] [phone] 05/02/2024 15:00 EST Telemedicine [facility] Hematology & Oncology [address] [phone] Alisson Carreon MD [address] [place] [address], Level [address] [place] [phone] 05/04/2024 10:15 EST Ancillary Procedure [facility] Cardiology [place] [address] 05/04/2024 11:30 EST Appointment [facility] Hematology & Oncology [address] [phone] 05/04/2024 12:00 EST Appointment [facility] Hematology & Oncology [address] [phone] 06/12/2024 13:00 EST Appointment [facility] Radiology CT - [address] [phone] Scheduled Referrals Name Type Priority Associated Diagnoses Order Schedule AMB CONS/FOLLOW UP PALLIATIVE CARE SERVICES Outpatient Referral Routine/Next Available Primary malignant neoplasm of breast with metastasis (HCC-CMS) Expected: 12/16/2023 (Approximate), Expires: 11/15/2024 documented as of this encounter Results * MISCELLANEOUS TEST, NON BRUNER (11/29/2023 11:00 EDT) Test Name Guardant 360 [...] Primary documented in this encounter Care Teams Molded Candles Wicker Relationship Specialty Start Date End Date Linda Blancas MD [facility] [address] [place] [address] PCP - General 01/06/11 Adolfo Carreno MD [address] [place] [address] 2 [place] [phone] General Surgery 04/26/19 Augustina Colin MD PhD [address] [place] [address], [facility] 2 [place] [phone] Medical Oncology 04/26/19 documented as of this encounter
--- OUTSIDE RECORDS SUMMARY | 2024-03-20 14:39 | XMS_ITS | Encounter Summary ---
Author Organization [facility] Address [address] [place] [address] Care Team Providers Care Automotive Parts Person Name Role Phone Linda Blancas MD Primary Care Provider [phone] Adolfo Carreno MD Unavailable [phone] Augustina Colin MD PhD Unavailable Unavailable Reason for Visit * Reason Onset Date Comments Appointment Related 11/14/2023 Encounter Details Date Type Department Care Team (Late st Contact Info) Description 11/14/2023 Telephone [facility] Rehabilitation Therapy - [address] [address] Therapy, Outpatient, Appointment Related Social History Tobacco Use Types [...] encounter Miscellaneous Notes * Telephone Encounter - Megha Peck MA - 11/14/2023 1303 EDT Pt called to do intake and scheduling to be seen by the lymphedema clinic. A VM was left asking herto call back to do the intake and scheduling (about 15 mins.). megha PECK MA 11/14/2023 13:06 documented in this encounter Plan of Treatment Upcoming Encounters Date Type Department Care Team (Late st Contact Info) Description 04/02/2024 10:30 EDT Appointment [facility] Interventional Radiology Unit [address] [place] [address] [phone] 04/02/2024 15:15 EDT Office Visit [facility] Surgical Oncology - [address] [phone] Adolfo Carreno MD 111 [facility], [facility] 2 [place] [phone] 04/05/2024 9:30 EDT Telemedicine [facility] - [facility] Palliative Care Services [address] [place], [place] 0[address]71 Chichi Woods MD [address] [phone] 04/11/2024 15:00 EDT Telemedicine [facility] Hematology & Oncology - [facility] [address] [place], [place] [phone] Alisson Carreon MD 111 [facility], [facility] 2 [place] [phone] 04/13/2024 13:30 EDT Appointment [facility] Hematology & Oncology - [address] [phone] 04/13/2024 14:00 EDT Appointment [facility] Hematology & Oncology - [address] [phone] 04/16/2024 10:00 EST Telemedicine [facility] - [facility] Palliative Care Services [address] [place] [address] [phone] Chichi Woods MD [address] [place] [address], [address] [phone] 04/24/2024 9:00 EST Appointment [facility] Radiology CT Outpatient - [address] [id number] 04/24/2024 11:00 EST Appointment [facility] Breast Imaging - [facility] S [address] [phone] 04/27/2024 12:00 EST Appointment [facility] Hematology & Oncology - [address] [phone] 05/02/2024 15:00 EST Telemedicine [facility] Hematology & Oncology - [address] [phone] Alisson Carreon MD [address] [place] [address], Level [address] [place] [phone] 05/04/2024 10:15 EST Ancillary Procedure [facility] Cardiology - [address] [place], [place] [phone] 05/04/2024 11:30 EST Appointment [facility] Hematology & Oncology - [address] [address] 05/04/2024 12:00 EST Appointment [facility] Hematology & Oncology - [address] [address] 06/12/2024 13:00 EST Appointment [facility] Radiology CT - [address] [id number] documented as of this encounter Visit Diagnoses Not on filedocumented in this encounter Care Teams Automotive Parts Person Relationship Specialty Start Date End Date Linda Blancas MD [facility] [address] [place] [address] PCP - General 01/06/11 Adolfo Carreno MD [address] [place] [address] 2 [place] [phone] General Surgery 04/26/19 Augustina Colin MD PhD [address] [place] [address] 2 [place] [phone] Medical Oncology 04/26/19 documented as of this encounter
--- OUTSIDE RECORDS SUMMARY | 2024-03-20 14:39 | XMS_ITS | Encounter Summary ---
Author Organization [facility] Address [address] [place] [address] Care Team Providers Care Capability Lead Name Role Phone Linda Blancas MD Primary Care Provider [phone] Adolfo Carreno MD Unavailable [phone] Augustina Colin MD PhD Unavailable Unavailable Reason for Referral * Cardiology (Routine/Next Available) - Authorization Not Required Specialty Diagnoses / Procedures Referred By [facility] t Referred To Contact Diagnoses Primary malignant neoplasm of breast with metastasis (HCC-CMS) Malignant neoplasm of right female breast, unspecified estrogen receptor status, unspecified site of breast (HCC-CMS) Abnormal electrocardiogram (ECG) (EKG) Procedures TRANSTHORACIC ECHO (TTE) LIMITED IL ECHO TRANSTHORC R-T 2D W/WO M-MODE REC F-UP/LMTD Alisson Carreon MD [address] [place] [address], [address] [place] [address] [facility] Referral ID Status Reason Start Date Expiration Date Visits Requested Visits Authorized [id number] Authorization Not Required 11/29/2023 1 1 Reason for Visit * Reason Comments Chemotherapy And Provider Visit Encounter Details Date Type Department Care Team (Late st Contact Info) Description 11/29/2023 9:00 EDT Office Visit [facility] Hematology & Oncology - [address] [address] Alisson Carreon MD [address] [facility], [facility], [address] [place] [address] Primary malignant neoplasm of breast with metastasis (HCC-CMS) (Primary Dx); Malignant neoplasm of right female breast, unspecified estrogen receptor status, unspecified site of breast (HCC-CMS); Osteopenia of necks of both femurs; Abnormal electrocardiogram (ECG) (EKG) Social History Tobacco [...] Sign Reading Time Taken Comments Blood Pressure 136/62 11/29/2023 0855 EDT Pulse 84 11/29/2023 0855 EDT Temperature 36.9 ??C (98.4 ??F) 11/29/2023 0855 EDT Respiratory Rate 16 11/29/2023 0855 EDT Oxygen Saturation 100% 11/29/2023 0855 EDT Inhaled Oxygen Concentration - - Weight 59.9 kg (132 lb 1.6 oz) 11/29/2023 0855 E DT Height - - Body Mass Index 25.01 11/23/2023 0826 EDT documented in this encounter [...] Progress Notes * Alisson Carreon MD - 11/29/2023 0900 EDT Follow Up Breast Oncology Office Visit 11/29/23 Assessment & Plan 63 y.o. 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 Lung biopsy 06/22/23 - adenocarcinoma consistent with metastatic breast cancer; ER+ >90%, IL < 5%; HER2 2+ equivocal; Dennis FISH testing negative 11/29/23 Guardant: Genetics: NMN VUS per notes Last scans: 11/09/23 CT AP: extensive liver mets, moderate ascites, 11/09/23 CTA: acute PE's, interval enlarged LN's (IM, left axillary, subpec) bone scan 11/25/23: new focus of left ninth rib PLAN: Enhertu today and every 3 weeks, we reviewed side effect of pneumonitis and rec for CT chest every 9-12 weeks CA 27-29: informative, monitor Transaminits (grade 1) from liver mets: monitor Liquid biopsy (Guardant or Caris) every 6 weeks, drawn today ECHO every 3 months, next due January [address] C/A/P end of December 2023 LE edema- see PT, compression stockings 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 Leach if pt is to remain on prednisone 10mg should we offer atovaqune pcp ppx will change zometa to denosumab on 12/20/23 because of potential new met/small rib fracture on bone scan 11/2023 Non invasive bronchoscopy Tuesday Continue diuretics with hepatology, ascitic fluid from portal HTN Close monitoring Breast Oncology History PROBLEM LIST: 1. 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 Ultrasound performed in [place] identifying an irregular heterogeneous soft tissue mass measuring 1.2 x 1.2 x 1.5 cm. b. 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 HER-2 1+ by IHC. ANNE MARIE revealed [...] breast tumor 07/07/17 and placement of tissue bread supervisor. 1.9 cm tumor at time ofsurgery, well differentiated, with LVI present, and negative margins. G. Biopsy left cervical LN 02/11/20 - consistent with metastatic adenocarcinoma consistent with breast primary H. Fulvestrant initiated 03/06/20; abemaciclib initiated 03/31/20 discontinued 06/01 due to diarrhea; palbociclib initiated March 2021 I. Capecitabine initiated December 2021 J. Y90 infusion to liver by Dr Moya 04/08/22 and again 05/14/22 K. 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 Lung biopsy 06/22/23 - adenocarcinoma consistent with metastatic breast cancer; ER+ >90%, IL < 5%; HER2 2+ equivocal; Dennis FISH testing negative M. Elacestrant initiated early August 2023 Potential future treatment options: trodelvy, various chemo's (eribulin, gem/cis, taxane/abraxane, Navelbine, adriamycin/doxil) Subjective Presents today with for transition of care 3rd Enhertu today Second paracentesis today, feels much better Also on prednisone 10mg with better energy Objective Vitals: 11/29/23 0855 BP: 136/62 Pulse: 84 Resp: 16 Temp: 36.9 ??C (98.4 ??F) TempSrc: Skin SpO2: 100% Weight: 59.9 kg (132 lb 1.6 oz) Wt Readings from Last 3 Encounters: 11/29/23 59.9 kg (132 lb 1.6 oz) 11/23/23 62.6 kg (138 lb 0.1 oz) 11/08/23 63 kg (139 lb) Physical Exam: appears well, alert and oriented x 3, no cough, no respiratory distress, clear and fluent speech, no scleral icterus, no jaundice, no visible rashes, no abdominal tenderness, no edema. Labs and Imaging NM BONE WHOLE BODY Result Date: 11/25/2023 [...] the above interpretation and agreewith the findings. [id number] IR LIMITED U/S ABDOMEN Result Date: 11/14/2023 Limited ultrasound abdomen. LUNA Arguelles, PA-C Interventional Radiology I have personally reviewed the images and the above interpretation and agree with the findings. [id number] CT ABDOMEN PELVIS W CONTRAST Result Date: 11/09/2023 1. No acute inflammatory changes in the abdomen or pelvis. 2. Extensive hepatic metastatic disease is not significantly changed when accounting for differences in technique. There are stigmata of portal hypertension, including moderate volume ascites. 3. Unchanged right iliac lytic lesion. 4. Cholelithiasis. I have personally reviewed the images and the above interpretation and agree with the findings. [id number] US LOWER VENOUS DUPLEX Result Date: 11/09/2023 No sonographic evidence of deep venous thrombosis in the left lower extremity. I have personally reviewed the images and the above interpretation and agree with the findings. [id number] US UPPER VENOUS DUPLEX Result Date: 11/09/2023 Occlusive deep venous thrombosis in the left internal jugular, brachiocephalic, and subclavian veins. Nonocclusive deep venous thrombosis is present in the left axillary vein. I have personally reviewed the images and the above interpretation and agree with the findings. [id number] CT ANGIO CHEST PE PROTOCOL Result Date: 11/09/2023 1. Acute pulmonary emboli involving bilateral subsegmental branches as above. No evidence of right heart strain. 2. Interval enlargement of a left internal mammary lymph node and multiple left axillary and subpectoral lymph nodes, which could be reactive though which may also represent recurrent malignancy. Attention on follow-up is advised. The critical result of acute pulmonary embolism was communicated to the ED on 11/09/2023 3:33 AM and findings were repeated back to signify understanding according to our critical results reporting policy. * I have personally reviewed the images and the above interpretation and agree with the findings. [id number] IR CHEST PORT 5 YRS OR OLDER Result Date: 11/04/2023 Right single lumen chest port placement using ultrasound and fluoroscopic guidance. [id number] documented in this encounter Plan of Treatment Upcoming Encounters Date Type Department Care Team (Late st Contact Info) Description 04/02/2024 10:30 EDT Appointment [facility] Interventional Radiology Unit [address] [place] [phone] 04/02/2024 15:15 EDT Office Visit [facility] Surgical Oncology - [address] [phone] Adolfo Carreno MD [address] [place] [address] 2 [place] [phone] 04/05/2024 9:30 EDT Telemedicine [facility] Palliative Care Services [address] [place] [address] [phone] Chichi Woods MD [address] [place] [address], [address] [phone] 04/11/2024 15:00 EDT Telemedicine [facility] Hematology & Oncology - [address] [phone] Alisson Carreon MD [address] [place] [address], [facility] [address] [place] [phone] 04/13/2024 13:30 EDT Appointment [facility] Hematology & Oncology [address] [phone] 04/13/2024 14:00 EDT Appointment [facility] Hematology & Oncology [address] [address] 04/16/2024 10:00 EST Telemedicine [facility] - [facility] Palliative Care Services [address] [place] [address] [phone] Chichi Woods MD [address] [place] [phone] 04/24/2024 9:00 EST Appointment [facility] Radiology CT Outpatient - [address] [phone] 04/24/2024 11:00 EST Appointment [facility] Breast Imaging - [facility] [address] [id number] 04/27/2024 12:00 EST Appointment [facility] Hematology & Oncology [address] [phone] 05/02/2024 15:00 EST Telemedicine [facility] Hematology & Oncology [address] [phone] Alisson Carreon MD [address] [place] [address], [address] [place] [phone] 05/04/2024 10:15 EST Ancillary Procedure [facility] Cardiology - [place] [address] 05/04/2024 11:30 EST Appointment [facility] Hematology & Oncology [address] [phone] 05/04/2024 12:00 EST Appointment [facility] Hematology & Oncology - [address] [id number] [phone] 06/12/2024 13:00 [facility] Radiology CT - Main [place] [address] [place] [address] documented as of this encounter Results * TRANSTHORACIC ECHO (TTE) [...] color Doppler.The study was interpreted by [facility] Cardiology. Pertinent images and [...] receptor status, unspecified site of breast (HCC-CMS) Osteopenia of necks of both femurs Abnormal electrocardiogram (ECG) (EKG) Primary malignant neoplasm of breast with metastasis (HCC-CMS) Malignant neoplasm of right female breast, unspecified estrogen receptor status, unspecified site of breast (HCC-CMS) Abnormal electrocardiogram (ECG) (EKG) documented in this encounter Orders General Supply Count Last Ordered Date First Or dered Date COMPRESSION GARMENT 1 11/29/2023 Appointment Requests Count Last Ordered Date Fi rst Ordered Date ONCBCN INJECTION APPOINTMENT REQUEST 11 09/202311/29/2023 documented in this encounter Care Teams Capability Lead Relationship Specialty Start Date End Date Linda Blancas MD [address] [place] [address] 30 [place], [place] [phone] PCP - General 01/06/11 Adolfo Carreno MD [address] [place] [address], [facility] 2 [place] [phone] General Surgery 04/26/19 Augustina Colin MD PhD [address] [place] [address] 2 [place] [phone] Medical Oncology 04/26/19 documented as of this encounter
--- OUTSIDE RECORDS SUMMARY | 2024-03-20 14:39 | XMS_ITS | Encounter Summary ---
Author Organization [facility] Address [address] [place] [address] Care Team Providers Care Chief Green Officer Name Role Phone Linda Blancas MD Primary Care Provider Adolfo Carreno MD Unavailable [phone] Augustina Colin MD PhD Unavailable Unavailable Reason for Visit * Episode Based Medications (Routine) - Authorization Not Required Specialty Diagnoses / Procedures Referred By [facility] Referred To Contact Diagnoses Malignant neoplasm of right female breast, unspecified estrogen receptor status, unspecified site of breast (HCC-CMS) Augustina Colin MD PhD [facility] Ep2 Infusion [address] [place] [address] Referral ID Status Reason Start Date Expiration Date Visits Requested Visits Authorized [id number] Authorization Not Required 10/12/2023 3 11 Encounter Details Date Type Department Care Team (Latest Contact Info) Description 11/29/2023 8:49 EDT - 11/29/2023 23:59 EDT Hospital Encounter [facility] Hematology & Oncology - Main [place] [address] [place], [place] [address] Malignant neoplasm of right female breast, unspecified [...] Tablets by mouth as needed. 12/07/2023 mv-mn/C/glutamin/lysin /ucdo790 (AIRBORNE, ASCORBATE SODIUM, ORAL) Take by mouth [...] in this encounter Progress Notes * Herminio Pandya RN - 11/29/2023 1015 EDT Out-patient Chemotherapy Note Patient presents to clinic today for cycle 3, day 1 of FAM-TRASTUZUMAB DERUXTECAN (BREAST, LUNG) treatment plan. Reviewed lab results with patient CBC: Lab Results Component Value Date WBC 5.19 11/29/2023 HGB 9.4 (L) 11/29/2023 HCT 27.9 (L) 11/29/2023 PLT 191 11/29/2023 NEUTROABS 2.52 11/29/2023 Chemistry: Lab Results Component Value Date NA 138 11/29/2023 K 3.4 (L) 11/29/2023 BUN 17 11/29/2023 CREATININE 0.54 11/29/2023 CALCIUM 8.5 11/29/2023 MG 2.0 11/29/2023 LFT: Lab Results Component Value Date TBIL 1.4 (H) 11/29/2023 ALKPHOS 361 (H) 11/29/2023 AST 69 (H) 11/29/2023 ALT 36 (H) 11/29/2023 Parameters for today???s treatment met. Plan to replete potassium level of 3.4 mmol/L with 40 mEq PO. Patient noted with single IVAD for access. IVAD flushed, site patent and without redness. Brisk blood return noted before and after each infusion. She was pre-medicated with dexamethasone 8 mg and aloxi 0.25 mg. Fam-trastuzumab deruxtecan-nxki 331.6 mg infused via filter over 30 minutes. Patient tolerating treatment at this time. No sign of reaction or side effects to note. Patient education: Patient is well versed in her treatment plan and does not have any questions or concerns at this time. Patient' s single IVAD noted to have brisk blood return and device flushed per hospital policy. Access site noted to be patent and without redness. IVAD de- accessed, dressing applied. Patient and family encouraged to call clinic with any issues. I was supervised by Dr. Tong who was present and immediately available in the office suite. HERMINIO PANDYA RN documented in this encounter Miscellaneous Notes * Addendum Note - Winsome Mireles - 11/29/2023 1015 EDTEncounter addended by: Winosme Mireles on: 11/30/2023 9:33 Actions taken: Charge Capture section accepted documented in this encounter Plan of Treatment Upcoming Encounters Date Type Department Care Team (Late st Contact Info) Description 04/02/2024 10:30 EDT Appointment [facility] Interventional Radiology Unit [address] [place], [place] [phone] 04/02/2024 15:15 EDT Office Visit [facility] Surgical Oncology - [address] [phone] Adolfo Carreno MD [address] [place] [address] [phone] 04/05/2024 9:30 EDT Telemedicine [facility] Palliative [facility] Services [address] [place] [phone] Chichi Woods MD [address] [place] [address] [phone] 04/11/2024 15:00 EDT Telemedicine [facility] Hematology & Oncology - [address] [phone] Alisson Carreon MD [address] [place] [address] [phone] 04/13/2024 13:30 EDT Appointment [facility] Hematology & Oncology - [address] [phone] 04/13/2024 14:00 EDT Appointment [facility] Hematology & Oncology - [address] [phone] 04/16/2024 10:00 EST Telemedicine [facility] Palliative Care Services [address] [place] [address] [phone] Chichi Woods MD [address] [place] [address] [phone] 04/24/2024 9:00 EST Appointment [facility] Radiology CT Outpatient - [address] [address] 04/24/2024 11:00 EST Appointment [facility] Breast Imaging - [facility] [address] [place] [address] 04/27/2024 12:00 EST Appointment [facility] Hematology & Oncology - [address] [address] 05/02/2024 15:00 EST Telemedicine [facility] Hematology & Oncology - [address] [address] Alisson Carreon MD [address] [place] [address], Level 2 [place] [phone] 05/04/2024 10:15 EST Ancillary Procedure [facility] Cardiology [place] [address] [place] [address] 05/04/2024 11:30 EST Appointment [facility] Hematology & Oncology - [address] [phone] 05/04/2024 12:00 EST Appointment [facility] Hematology & Oncology - [address] [address] 06/12/2024 13:00 EST Appointment [facility] Radiology CT - [address] [phone] documented as of this encounter Procedures Procedure Name Priority Date/Time Associated Diagnosis Comments COMPREHENSIVE METABOLIC PANEL (ONCOLOGY USE ONLY-INC MG) STAT 11/29/2023 10:43 EDT Primary malignant neoplasm of breast with metastasis (HCC-CMS) CA 27.29 STAT 11/29/2023 10:43 EDT Malignant neoplasm of right female breast, unspecified estrogen receptor status, unspecified site of breast (HCC-CMS) COMPLETE BLOOD COUNT AND DIFFERENTIAL STAT 11/29/2023 10:43 EDT Primary malignant neoplasm of breast with metastasis (HCC-CMS) documented in this encounter Results * (ABNORMAL) COMPREHENSIVE METABOLIC PANEL (ONCOLOGY USE ONLY-INC MG) (11/29/2023 10:43 EDT) Sodium 138 136 - 145 mmol/L 11/29/2023 11:33 [facility] Potassium 3.4(L) 3.5 - 5.0 mmol/L 11/29/2023 11:33 [facility] Chloride 108 96 - 110 mmol/L 11/29/2023 11:33 [facility] CO2 Total 25 22 - 32 mmol/L 11/29/2023 11:33 [facility] Glucose 81 70 - 99 mg/dl 11/29/2023 11:33 [facility] BUN 17 10 - 26 mg/dL 11/29/2023 11:33 [facility] Creatinine 0.54 0.52 - 1.04 mg/dL 11/29/2023 11:33 [facility] eGFR 104 >60 mL/min/1.7 3m2 11/29/2023 11:33 [facility] Total Protein 5.6(L) 6.3 - 8.2 g/dL 11/29/2023 11:33 [facility] Albumin 2.8(L) 3.4 - 4.9 g/dL 11/29/2023 11:33 [facility] Alkaline Phosphatase 361(H) 38 - 126 U/L 11/29/2023 11:33 [facility] AST 69(H) 15 - 46 U/L 11/29/2023 11:33 [facility] ALT 36(H) <35 U/L 11/29/2023 11:33 [facility] Bilirubin, Total 1.4(H) <1.4 mg/dL 11/29/19 11:33 [facility] Calcium 8.5 8.5 - 10.5 mg/dL 11/29/2023 11:33 [facility] Magnesium 2.0 1.7 - 2.8 mg/dL 11/29/2023 11:33 [facility] Albumin/Globulin Ratio 1.0 1.0 - 2.5 11/29/2023 11:33 [facility] Anion Gap 5 5 - 14 mmol/L 11/29/2023 11:33 [facility] Blood VENOUS BLOOD / Unknown Port / Unknown 11/29/2023 10:43 EDT 11/29/2023 11:07 EDT Augustina Colin MD PhD CHEMISTRY & BLOOD GA S ORDERABLES [facility] [address] [place] [address] * (ABNORMAL) COMPLETE BLOOD COUNT AND DIFFERENTIAL (11/29/2023 10:43 EDT) WBC 5.19 4.00 - 12.40 K/cmm 11/29/2023 11:19 [facility] RBC 2.77(L) 3.86 - 5.04 M/cmm 11/29/2023 11:19 [facility] Hemoglobin 9.4(L) 11.6 - 15.2 g/dL 11/29/2023 11:19 [facility] HCT 27.9(L) 34.9 - 44.4 % 11/29/2023 11:19 [facility] MCV 101(H) 81 - 98 fL 11/29/2023 11:19 [facility] MCH 33.9(H) 26.7 - 33.3 pg 11/29/2023 11:19 [facility] MCHC 33.7 32.1 - 35.9 g/dL 11/29/2023 11:19 [facility] RDW-CV 23.7(H) <14.7 % 11/29/2023 11:19 [facility] RDW-SD 85.0(H) <50.4 fl 11/29/2023 11:19 [facility] PLT 191 141 - 377 K/cmm 11/29/2023 11:19 [facility] MPV 9.6 9.5 - 12.7 fL 11/29/2023 11:19 [facility] % Neutrophils 48.5 % 11/29/2023 11:19 [facility] % Lymphocytes 21.6 % 11/29/2023 11:19 [facility] % Monocytes 25.4 % 11/29/2023 11:19 [facility] % Eosinophils 3.3 % 11/29/2023 11:19 [facility] % Basophils 0.8 % 11/29/2023 11:19 [facility] % Immature Grans 0.4 % 11/29/19 11:19 [facility] Absolute Neutrophils 2.52 2.20 - 8.85 K/cmm 11/29/2023 11:19 [facility] Absolute Lymphocytes 1.12 1.09 - 3.30 K/cmm 11/29/2023 11:19 [facility] Absolute Monocytes 1.32(H) 0.10 - 0.80 K/cmm 11/29/2023 11:19 [facility] Absolute Eosinophils 0.17 0.03 - 0.61 K/cmm 11/29/2023 11:19 [facility] ABS Basophils 0.04 0.01 - 0.11 K/cmm 11/29/2023 11:19 [facility] Absolute Immature Grans 0.02 0.00 - 0.06 K/cmm 11/29/2023 11:19 [facility] Type of Differential: Auto 11/29/2023 11:19 [facility] Blood VENOUS BLOOD / Unknown Port / Unknown 11/29/2023 10:43 EDT 11/29/2023 11:07 EDT Augustina Colin MD PhD PACKAGES & DNA PROBE ORDERABLES [facility] [address] [place] [address] * (ABNORMAL) CA 27.29 (11/29/2023 10:43 EDT) CA 27.29 836.1(H) <38.0 U/mL 11/30/2023 11:20 EDT [facility] Comment: NOTE: Serum CA 27.29 concentration should not be interpreted as absolute evidence for the presence or absence of malignant disease. Assayed on [employer] XPT using chemiluminescent technology. ??Values obtained by using different assay methods cannot be used interchangeably. Blood VENOUS BLOOD / Unknown Port / Unknown 11/29/2023 10:43 EDT 11/29/2023 11:07 EDT Augustina Colin MD PhD CHEMISTRY & BLOOD GA S ORDERABLES Performing Organization Address [facility] [[email or web address]] Co de Phone Number [facility] [address] [place] [address] documented in this encounter Visit Diagnoses Diagnosis Malignant neoplasm of right female breast, unspecified estrogen receptor status, unspecified site of breast (HCC-CMS)- Primary Primary malignant neoplasm of breast with metastasis (HCC-CMS) documented in this encounter Administered Medications Inactive Administered Medications - up to 3 most recent administrations Medication Order MAR Action Action Date Dose Rate Site dexAMETHasone (DECADRON) tablet 8 mg 8 mg, oral, NOW X1, 1 dose, On Tue11/29/23 at 1230, Routine Given 11/29/2023 12:08 EDT 8 mg dextrose 5 % (D5W) infusion intravenous, PRN, Starting on Tue11/29/23 at 1202, Until Tue11/30/23 at 1201, Other Given 11/29/2023 12:00 EDT 250 mL fam-trastuzumab deruxtecan-nxki (Enhertu) 331.6 mg in dextrose 5% (D5W) 100 mL IVPB 331.6 mg (rounded from 331.56 mg = 5.4 mg/kg ? 61.4 kg Treatment plan Recorded weight), intravenous, Administer over 90 Minutes, NOW X1, 1 dose, On Tue11/29/23 at 1300 Given 11/29/2023 12:35 EDT 331.6 mg palonosetron (ALOXI) injection 0.25 mg 0.25 mg, intravenous, NOW X1, 1 dose, On Tue11/29/23 at 1230, Routine Given 11/29/2023 12:08 EDT 0.25 mg potassium chloride SA (KLOR-CON M20) tablet 40 mEq 40 mEq, oral, NOW X1, 1 dose, On Tue11/29/23 at 1330, Routine Given 11/29/2023 13:13 EDT 40 mEq documented in this encounter Orders Medications Ordered That Vj ht Not Have Been Administered Count Last Ordered Date First Ordered Date diphenhydrAMINE (BENADRYL) injection 50 mg 1 11/29/2023 epinephrine anaphylaxis kit 1 11/29/2023 methylPREDNISolone sod suc(P F) (SOLU-MEDROL) injection 100 mg 1 11/29/2023 sodium chloride 0.9 % (flush) flush 10 mL 2 11/29/2023 sodium chloride 0.9 % (flush) flush 20 mL 1 11/29/2023 Nursing Count Last Ordered Date First Orde red Date INFORMED CONSENT 1 11/29/2023 Appointment Requests Count Last Ordered Date Fi rst Ordered Date ONCBCN INFUSION APPOINTMENT REQUEST - CALCULATED 1 11/29/2023 documented in this encounter Care Teams Chief Green Officer Relationship Specialty Start Date End Date Linda Blancas MD [facility] [address] [place] [address] PCP - General 01/06/11 Adolfo Carreno MD [address] [place] [phone] General Surgery 04/26/19 Augustina Colin MD PhD [address] [place] [address] 2 [place] [phone] Medical Oncology 04/26/19 documented as of this encounter
--- OUTSIDE RECORDS SUMMARY | 2024-03-20 14:39 | XMS_ITS | Encounter Summary ---
Author Organization [facility] Address [address] [place] [address] Care Team Providers Care Anger Control Counselor Name Role Phone Linda Blancas MD Primary Care Provider [phone] Adolfo Carreno MD Unavailable [phone] Augustina Colin MD PhD Unavailable Unavailable Reason for Visit * Reason Onset Date Comments Follow-up 11/09/2023 Encounter Details Date Type Department Care Team (Late st Contact Info) Description 11/09/2023 Telephone [facility] Cancer Center Hematology & Oncology - Main [place] [address] [place], [place] [phone] Zulma Acevedo RN Follow-up Social History Tobacco [...] for 23 days. 74 Tablet 11/09/2023 12/07/2023 documented in this encounter Miscellaneous Notes * Telephone Encounter - Zulma Acevedo RN - 11/09/2023 1618 EDT Call placed to patient to check in on how she was feeling following ED discharge in the php mysql web developer of 11/08. Pt reports she was discharged on Eliquis, however they sent the prescription to the wrong pharmacy. This RN adjusted pharmacy and pended same prescription to Dr. Garber for review and signature. Pt reports she is due for her second dose tonight. Reviewed Eliquis precautions with pt. Pt re ports her weight is down 3lbs since her abdominal draining, although her breathing is still a little difficult d/t recent PE diagnosis. Pt also reports her L arm is still taught but swelling has decreased slightly. She is able to eat and drink and will continue her bowel regimen tomorrow. Will confirm pt receives Eliquis prescription tonight and touch base with patient on 11/10. Weight down 3lbs, 135.8 was 139.6 Also received notification from social work that pt has not refilled her Elascestrant, however thismedication was discontinued and pt is on new regimen. Emma with [facility] contact attempted, however unable to reach or leave message. documented in this encounter Plan of Treatment Upcoming Encounters Date Type Department Care Team (Late st Contact Info) Description 04/02/2024 10:30 EDT Appointment [facility] Interventional Radiology Unit [address] [place] [address] [phone] 04/02/2024 15:15 EDT Office Visit [facility] Surgical Oncology - [address] [phone] Adolfo Carreno MD [address] [place] [address] 2 [place] [phone] 04/05/2024 9:[address] [facility] Palliative Care Services [address] [place] [address] [phone] Chichi Woods MD [address] [place] [phone] 04/11/2024 15:00 EDT Telemedicine [facility] [place] Hematology & Oncology - [address] 03[address] Alisson Carreon MD [address] [place] [address] [phone] 04/13/2024 13:30 EDT Appointment [facility] [place] Hematology & Oncology - [address] [phone] 04/13/2024 14:00 EDT Appointment [facility] [place] Hematology & Oncology - [address] [phone] 04/16/2024 10:[address] [facility] Palliative Care Services [address] [place] [address] [phone] Chichi Woods MD [address] [place] [phone] 04/24/2024 9:00 EST Appointment [facility] Radiology CT Outpatient - [address] [address] 04/24/2024 11:00 EST Appointment [facility] Breast Imaging - [facility] [address] [place] [address] [place] [address] 04/27/2024 12:00 EST Appointment [facility] [place] Hematology & Oncology - [address] [address] 05/02/2024 15:00 EST Telemedicine [facility] [place] Hematology & Oncology - [address] [address] Alisson Carreon MD [address] [place] [address], Level 2 [place] [phone] 05/04/2024 10:15 EST Ancillary Procedure [facility] Cardiology [place] [place] [address] 05/04/2024 11:30 EST Appointment [facility] [place] Hematology & Oncology - [address] [phone] 05/04/2024 12:00 EST Appointment [facility] [place] Hematology & Oncology - [address] [phone] 06/12/2024 13:00 EST Appointment [facility] Radiology CT - [address] [phone] documented as of this encounter Visit Diagnoses Diagnosis Primary malignant neoplasm of breast with metastasis (HCC-CMS)- Primary documented in this encounter Discontinued Medications Medication Sig Discontinue Reason Start Date End Da te apixaban (ELIQUIS) 5 mg tablet Take 2 Tablets by mouth 2 times daily for 7 days, THEN 1 Tablet 2 times daily for 23 days. 11/09/2023 11/09/2023 documented as of this encounter Care Teams Anger Control Counselor Relationship Specialty Start Date End Date Linda Blancas MD [facility] [address] [place] [address] PCP - General 01/06/11 Adolfo Carreno MD [address] [place] [phone] General Surgery 04/26/19 Augustina Colin MD PhD [address] [place] [phone] Medical Oncology 04/26/19 documented as of this encounter
--- OUTSIDE RECORDS SUMMARY | 2024-03-20 14:39 | XMS_ITS | Encounter Summary ---
Author Organization [facility] Address [address] [place] [address] Care Team Providers Care Popcorn Machine Operator Name Role Phone Linda Blancas MD Primary Care Provider [phone] Adolfo Carreno MD Unavailable [phone] Augustina Colin MD PhD Unavailable Unavailable Reason for Visit * Reason Onset Date Comments Social Work 11/09/2023 fiberglass bonding machine tender Encounter Details Date Type Department Care Team (Late st Contact Info) Description 11/09/2023 Telephone [facility] Cancer Center Hematology & Oncology - Main [place] [address] [place], [place] [phone] Trinh Posey Social Work (fiberglass bonding machine tender) Social History Tobacco Use Types Packs/Day Years [...] * Telephone Encounter - Trinh Posey - 11/09/2023 1519 EDT VM from Emma @ [facility] for a refill for pt's Orserdu. I notified Zulma Acevedo RN and provided her with Emma's contact information documented in this encounter Plan of Treatment Upcoming Encounters Date Type Department Care Team (Late st Contact Info) Description 04/02/2024 10:[address] [facility] Interventional Radiology Unit [address] [place] [address] [phone] 04/02/2024 15:[address] [facility] Surgical Oncology - [address] [phone] Adolfo Carreno MD [address] [place] [phone] 04/05/2024 9:30 EDT Telemedicine [facility] - [facility] Palliative Care Services [address] [place] [address] [phone] Cihchi Woods MD [address] [place] [phone] 04/11/2024 15:00 EDT Telemedicine [facility] Hematology & Oncology - [address] [phone] Alisson Carreon MD [address] [place] [address] 2 [place] [phone] 04/13/2024 13:30 EDT Appointment [facility] Hematology & Oncology - [address] [phone] 04/13/2024 14:00 EDT Appointment [facility] Hematology & Oncology - [address] [phone] 04/16/2024 10:00 EST Telemedicine [facility] - [facility] Palliative Care Services [address] [place] [address] [phone] Chichi Woods MD [address] [place] [address], [address] [phone] 04/24/2024 9:00 EST Appointment [facility] Radiology CT Outpatient - [address] [phone] 04/24/2024 11:[address] [facility] Breast Imaging - [facility] [address] 659411 04/27/2024 12:00 EST Appointment [facility] Hematology & Oncology [address] [phone] 05/02/2024 15:00 EST Telemedicine [facility] Hematology & Oncology - [address] [address] Alisson Carreon MD [address] [place] [address], Level 2 [place] [phone] 05/04/2024 10:[address] [facility] Cardiology - [place] [address] 05/04/2024 11:30 EST Appointment [facility] Hematology & Oncology - [address] [address] 05/04/2024 12:00 EST Appointment [facility] Cancer Center Hematology & Oncology - [address] [address] 06/12/2024 13:00 EST Appointment [facility] Radiology CT - [address] [address] documented as of this encounter Visit Diagnoses Not on filedocumented in this encounter Care Teams Popcorn Machine Operator Relationship Specialty Start Date End Date Linda Blancas MD [facility] [address] [place] [address] PCP - General 01/06/11 Adolfo Carreno MD [address] [place] [address], [facility] 2 [place] [phone] General Surgery 04/26/19 Augustina Colin MD PhD [address] [place] [address], [facility] 2 [place] [phone] Medical Oncology 04/26/19 documented as of this encounter
--- OUTSIDE RECORDS SUMMARY | 2024-03-20 14:39 | XMS_ITS | Encounter Summary ---
Author Organization [facility] Address [address] [place] [address] Care Team Providers Care Waterproofer Helper Name Role Phone Linda Blancas MD Primary Care Provider [phone] Adolfo Carreno MD Unavailable [phone] Augustina Colin MD PhD Unavailable Unavailable Encounter Details Date Type Department Care Team (Late st Contact Info) Description 11/09/2023 Orders Only [facility] Radiology - Main [place] [address] [place] [address] Deric Diallo MD [address] [place], [place] 203321 Social History Tobacco Use Types Packs/Day Years [...] Contact Info) Description 04/02/2024 10:30 EDT Appointment [facility] Interventional Radiology Unit [address] [place] [address] 130061 04/02/2024 15:15 EDT Office Visit [facility] Surgical Oncology - [address] [phone] Adolfo Carreno MD [address] [place] [address] 2 [place] [phone] 04/05/2024 9:30 EDT Telemedicine [facility] - [facility] Palliative Care Services [address] [place], [place] [phone] Chichi Woods MD [address] [place] [address], [address] [phone] 04/11/2024 15:00 EDT Telemedicine [facility] Hematology & Oncology - [address] 285491 Alisson Carreon MD [address] [place] [address] 2 [place] [phone] 04/13/2024 13:30 EDT Appointment [facility] Hematology & Oncology - [address] [phone] 04/13/2024 14:00 EDT Appointment [facility] Hematology & Oncology - [address] [id number] 04/16/2024 10:00 EST Telemedicine [facility] - [facility] Palliative Care Services [address] [place] [address] Chichi Woods MD 111 [facility], [address] [phone] 04/24/2024 9:00 EST Appointment [facility] Radiology CT Outpatient - [address] [id number] 04/24/2024 11:00 EST Appointment [facility] Breast Imaging - [address] 711121 04/27/2024 12:00 EST Appointment [facility] Hematology & Oncology - [address] 043861 05/02/2024 15:00 EST Telemedicine [facility] Hematology & Oncology - [address] 817061 Alisson Carreon MD [address] [place] [address], [facility], Level [address] [place] [phone] 05/04/2024 10:15 EST Ancillary Procedure [facility] Cardiology [place] [address] 05/04/2024 11:30 EST Appointment [facility] Hematology & Oncology - [address] [phone] 05/04/2024 12:00 EST Appointment [facility] Hematology & Oncology - [address] [id number] 06/12/2024 13:00 EST Appointment [facility] Radiology CT - [address] [phone] documented as of this encounter Visit Diagnoses Not on filedocumented in this encounter Care Teams Waterproofer Helper Relationship Specialty Start Date End Date Linda Blancas MD [address] [place] [address] 30 [place] [address] PCP - General 01/06/11 Adolfo Carreno MD [address] [place] [phone] General Surgery 04/26/19 Augustina Colin MD PhD [address] [place] [phone] Medical Oncology 04/26/19 documented as of this encounter
--- OUTSIDE RECORDS SUMMARY | 2024-03-20 14:39 | XMS_ITS | Encounter Summary ---
Author Organization [facility] Address [address] [place] [address] Care Team Providers Care Insurance Representative Name Role Phone Linda Blancas MD Primary Care Provider [phone] Adolfo Carreno MD Unavailable [phone] Augustina Colin MD PhD Unavailable Unavailable Encounter Details Date Type Department Care Team (Latest Contact Info) Description 11/11/2023 Orders Only [facility] Gastroenterology - Main [place] [address] [place], [place] 564441 Yovana Bowman RN Other ascites (Primary Dx) Social History Tobacco [...] as of this encounter Progress Notes * Yovana Bowman RN - 11/11/2023 1117 EDT From: Hugo Vergara MD PhD Sent: 11/11/2023 11:11 EDT To: Yovana Bowman RN Please see whether this patient can be scheduled for IR paracentesis with IV albumin and peritonealfluid analysis (protein, albumin, triglycerides), along with CMP - ideally early next week. She is on Eliquis, which does not need to be stopped for the procedure. Paracentesis ordered pendedfor signature. Patient is aware. documented in this encounter Plan of Treatment Upcoming Encounters Date Type Department Care Team (Late st Contact Info) Description 04/02/2024 10:30 EDT Appointment [facility] Interventional Radiology Unit [address] [place] [address] [id number] 04/02/2024 15:15 EDT Office Visit [facility] Surgical Oncology - [address] [phone] Adolfo Carreno MD 111 [facility], Level 2 [place] [phone] 04/05/2024 9:30 EDT Telemedicine [facility] - [facility] Palliative Care Services [address] [place], [place] [phone] Chichi Woods MD 111 [facility], [address] [phone] 04/11/2024 15:00 EDT Telemedicine [facility] Hematology & Oncology - [address] 988451 Alisson Carreon MD [address] [place] [address] 2 [place] [phone] 04/13/2024 13:30 EDT Appointment [facility] Hematology & Oncology - [address] [phone] 04/13/2024 14:00 EDT Appointment [facility] Hematology & Oncology - [address] [id number] 04/16/2024 10:00 EST Telemedicine [facility] - [facility] Palliative Care Services [address] [place] [address] [phone] Chichi Woods MD [address] [place] [address], [address] [phone] 04/24/2024 9:00 EST Appointment [facility] Radiology CT Outpatient - [address] [id number] 04/24/2024 11:00 EST Appointment [facility] Breast Imaging - [address] [id number] 04/27/2024 12:00 EST Appointment [facility] Hematology & Oncology - [address] [id number] 05/02/2024 15:00 EST Telemedicine [facility] Hematology & Oncology - [address] [phone] Alisson Carreon MD [address] [place] [address], [facility] 2 [place] [phone] 05/04/2024 10:15 EST Ancillary Procedure [facility] Cardiology - [place] [place] [address] 05/04/2024 11:30 EST Appointment [facility] Hematology & Oncology [address] [phone] 05/04/2024 12:00 EST Appointment [facility] Hematology & Oncology [address] 377681 06/12/2024 13:00 EST Appointment [facility] Radiology CT [address] [id number] documented as of this encounter Results * (ABNORMAL) COMPREHENSIVE METABOLIC PANEL (CMP) (12/09/2023 9:55 EDT) Sodium 133(L) 136 - 145 mmol/L 12/09/2023 10:44 [facility] Potassium 3.7 3.5 - 5.0 mmol/L 12/09/2023 10:44 [facility] Chloride 104 96 - 110 mmol/L 12/09/2023 10:44 [facility] CO2 Total 24 22 - 32 mmol/L 12/09/2023 10:44 [facility] Glucose 112(H) 70 - 99 mg/dl 12/09/2023 10:44 [facility] BUN 24 10 - 26 mg/dL 12/09/2023 10:44 [facility] Creatinine 0.61 0.52 - 1.04 mg/dL 12/09/2023 10:44 [facility] eGFR 101 >60 mL/min/1.7 3m2 12/09/2023 10:44 [facility] Total Protein 5.2(L) 6.3 - 8.2 g/dL 12/09/2023 10:44 [facility] Albumin 2.7(L) 3.4 - 4.9 g/dL 12/09/2023 10:44 [facility] Alkaline Phosphatase 308(H) 38 - 126 U/L 12/09/2023 10:44 [facility] AST 46 15 - 46 U/L 12/09/2023 10:44 EDT [facility] ALT 37(H) <35 U/L 12/09/2023 10:44 T [facility] Bilirubin, Total 1.9(H) <1.4 mg/dL 12/09/19 10:44 EDT [facility] Calcium 8.0(L) 8.5 - 10.5 mg/dL 12/09/2023 10:44 EDT [facility] Albumin/Globulin Ratio 1.1 1.0 - 2.5 12/09/2023 10:44 EDT [facility] Anion Gap 5 5 - 14 mmol/L 12/09/2023 10:44 T [facility] Blood VENOUS BLOOD / Unknown Venipuncture / Unknown 12/09/2023 9:55 EDT 12/09/2023 10:13 EDT Hugo Vergara MD PhD CHEMISTRY & BLO OD GAS ORDERABLES Performing Organization Address [facility]/ZIP Co de Phone Number [facility] [address] [place] [address] * TRIGLYCERIDES, FLUID (11/29/2023 8:14 EDT) Triglycerides, Fluid 24 See Note mg/dL 11/29/2023 9:14 EDT [facility] Comment: Ascitic Fluid Reference range unavailable. Clinical correlation required. This Fluid Triglyceride assay was developed and its performance characteristics determined by [facility]. ??It has not been cleared or approved by the [place] Food and Drug Administration. Fluid ASCITIC FLUID / Unknown 11/29/2023 8:14 EDT 11/29/2023 8:47 EDT Hugo Vergara MD PhD GEN LAB UNIT CO LLECT ORDERABLES Performing Organization Address [facility]/ZIP Co de Phone Number [facility] [address] [place], [place] [phone] * ALBUMIN, FLUID (11/29/2023 8:14 EDT) Albumin, Fluid <1.0 See Note g/dL 11/29/2023 9:14 EDT [facility] Comment: Ascitic Fluid Reference range unavailable. Clinical correlation required. This Fluid Albumin assay was developed and its performance characteristics determined by [facility]. ??It has not been cleared or approved by the Food and Drug Administration. Fluid ASCITIC FLUID / Unknown 11/29/2023 8:14 EDT 11/29/2023 8:47 EDT Hugo Vergara MD PhD GEN LAB UNIT CO LLECT ORDERABLES Performing Organization Address [facility] Co de Phone Number [facility] [address] [place] [address] * TOTAL PROTEIN, FLUID (11/29/2023 8:14 EDT) Total Protein, Fluid <2.0 See Note g/dL 11/29/2023 9:14 EDT [facility] Comment: Ascitic Fluid Reference range unavailable. Clinical correlation required. This Fluid Total Protein assay was developed and its performance characteristics determined by [facility]. ??It has not been cleared or approved by the Food and Drug Administration. Fluid ASCITIC FLUID / Unknown 11/29/2023 8:14 EDT 11/29/2023 8:47 EDT Hugo Vergara MD PhD GEN LAB UNIT CO LLECT ORDERABLES Performing Organization Address [facility]/ZIP Co de Phone Number [facility] [address] [place] [address] documented in this encounter Visit Diagnoses Diagnosis Other ascites- Primary documented in this encounter Care Teams Insurance Representative Relationship Specialty Start Date End Date Linda Blancas MD [facility] [address] [place] [address] PCP - General 01/06/11 Adolfo Carreno MD [address] [place] [address], [facility] 2 [place] [address] General Surgery 04/26/19 Augustina Colin MD PhD [address] [place] [address] 2 [place] [phone] Medical Oncology 04/26/19 documented as of this encounter
--- OUTSIDE RECORDS SUMMARY | 2024-03-20 14:39 | XMS_ITS | Encounter Summary ---
Author Organization [facility] Address [address] [place] [address] Care Team Providers Care Top Steep Tender Name Role Phone Linda Blancas MD Primary Care Provider [phone] Adolfo Carreno MD Unavailable [phone] Augustina Colin MD PhD Unavailable Unavailable Reason for Visit * Radiology Services (Routine/Next Available) - Authorization Not Required Specialty Diagnoses / Procedures Referred By Contac t Referred To Contact Nuclear Medicine Diagnoses Primary malignant neoplasm of breast with metastasis (HCC-CMS) Procedures NM BONE WHOLE BODY Augustina Colin MD PhD [facility] Referral ID Status Reason Start Date Expiration Date Visits Requested Visits Authorized [id number] Authorization Not Required 10/21/2023 1 1 Encounter Details Date Type Department Care Team (Latest Contact Info) Description 11/25/2023 10:50 EDT - 11/25/2023 23:59 EDT Hospital Encounter [facility] Radiology Nuclear Medicine and PET - [address] [address] Discharge Disposition: Home or Self Care Social [...] Tablets by mouth as needed. 12/07/2023 mv-mn/C/glutamin/lysin /[id number] (AIRBORNE, ASCORBATE SODIUM, ORAL) Take by mouth [...] Contact Info) Description 04/02/2024 10:30 EDT Appointment [facility] Interventional Radiology Unit [address] [place] [address] 04/02/2024 15:15 EDT Office Visit [facility] Surgical Oncology - [facility] [address] [place], [place] 327001 Adolfo Carreno MD 111 [facility], [facility], Level 2 [place] [phone] 04/05/2024 9:[address] [facility] Palliative Care Services [address] [place], [place] 516[address] Chichi Woods MD [address] [place] [address] 262 [place] [phone] 04/11/2024 15:00 EDT Telemedicine [facility] Hematology & Oncology - [address] 828841 Alisson Carreon MD [address] [place] [address] 2 [place] [phone] 04/13/2024 13:30 EDT Appointment [facility] Hematology & Oncology [address] [id number] 04/13/2024 14:00 EDT Appointment [facility] Hematology & Oncology [address] [id number] 04/16/2024 10:00 EST Telemedicine [facility] - [facility] Palliative Care Services [address] [place] [address] [phone] Chichi Woods MD [address] [place] [phone] 04/24/2024 9:00 EST Appointment [facility] Radiology CT Outpatient - [address] 103561 04/24/2024 11:00 EST Appointment [facility] Breast Imaging - [address] [id number] 04/27/2024 12:00 EST Appointment [facility] Hematology & Oncology - [address] 089031 05/02/2024 15:00 EST Telemedicine [facility] Hematology & Oncology - [address] [phone] Alisson Carreon MD [address] [place] [address] Level 2 [place] [phone] 05/04/2024 10:15 EST Ancillary Procedure [facility] Cardiology - [address] [place] [address] 05/04/2024 11:30 EST Appointment [facility] Hematology & Oncology - [address] [id number] 05/04/2024 12:00 EST Appointment [facility] Hematology & Oncology - [address] 826131 06/12/2024 13:00 EST Appointment [facility] Radiology CT - [address] [id number] documented as of this encounter Procedures Procedure Name Priority Date/Time Associated Diagnosis Comments CO BONE WHOLE BODY Routine 11/25/2023 14 :13 EDT Primary malignant neoplasm of breast with metastasis (HCC-CMS) documented in this encounter Results * CO BONE WHOLE BODY (11/25/2023 14:13 EDT) Anatomical [...] above interpretation and agree with the findings. [id number] Narrative 11/25/2023 14:49 EDT NM BONE WHOLE [...] uptake overlying the abdomen. Resulting Agency Comment [id number] Procedure Note Merry Dooley MD - 11/25/2023 [...] the above interpretation andagree with the findings. [id number] Augustina Colin MD PhD IMG NM ORDERABLES documented in this encounter Visit Diagnoses Not on filedocumented in this encounter Care Teams Top Steep Tender Relationship Specialty Start Date End Date Linda Blancas MD [facility] [address] [place] [address] PCP - General 01/06/11 Adolfo Carreno MD [address] [place] [phone] General Surgery 04/26/19 Augustina Colin MD PhD [address] [place] [phone] Medical Oncology 04/26/19 documented as of this encounter
--- OUTSIDE RECORDS SUMMARY | 2024-03-20 14:39 | XMS_ITS | Encounter Summary ---
Author Organization [facility] Address [address] [place] [address] Care Team Providers Care Senior Management Consultant Name Role Phone Linda Blancas MD Primary Care Provider [phone] Adolfo Carreno MD Unavailable [phone] Augustina Colin MD PhD Unavailable Unavailable Reason for Visit * Reason Onset Date Comments New/Evolving Symptoms 11/10/2023 Encounter Details Date Type Department Care Team (Late st Contact Info) Description 11/10/2023 Telephone [facility] Hematology & Oncology - [address] [phone] Alisson Carreon MD 111 [facility], Level 2 [place] [address] New/Evolving Symptoms Social History Tobacco [...] Telephone Encounter - Zulma Acevedo RN - 11/10/2023 1123 EDT Pt called in to report increased swelling in BL legs, continued swelling in L arm, and new edema inher vaginal area, specifically her labia. Pt reports she noticed this after having a normal BM and voiding. She states its started on the evening of 11/08, overnight both her vaginal swelling and BL legs improved, however when she woke and got moving this AM, her swelling returned and feels like there is a pouch that may be fluid filled in her vaginal area. She reports the swelling in her labia isabout 3x its normal size. Pt reports she is taking Eliquis as prescribed but was unable to fill herprescription last night and took her doses from her friend's supply of Eliquis. Pt to shredder picker her prescription this afternoon. She does feel her arm swelling is improving. Her last Echo was 10/16, showing an EF of 55-60%. Provider updated, awaiting any suggested interventions. 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 Pt would like to see PCP for referral, which Dr. Colin is ok with. Dr. Colin would also like this patient to continue to monitor her weights, pt made aware to monitor and report any weight gain of 4lbs or greater. If pt gains 4+lbs we will look into another draining of her abdomen. Pt updated with this information via [employer]. Aware to call withany additional questions or concerns. * Telephone Encounter - Sloane Hayes - 11/10/2023 1043 EDT HemOnc Incoming Call Active Symptoms/Disease Management Call Reason: Patient would like to speak to nurse about unexpected swelling. Started last night. Feels it is urgent Please call back Next Appointment: 11/29/2023 Last Office Visit: 11/08/2023 Augustina Colin MD PhD Last Telehealth Encounter: 09/22/2023 Nadeen Blood PA-C Send ROUTINE Priority to Hem/Onc Nurse Pool Sloane Hayes 11/10/2023 10:43 documented in this encounter Plan of Treatment Upcoming Encounters Date Type Department Care Team (Late st Contact Info) Description 04/02/2024 10:30 EDT Appointment [facility] Interventional Radiology Unit [address] [place] [address] 04/02/2024 15:15 EDT Office Visit [facility] Surgical Oncology - [address] 479291 Adolfo Carreno MD [address] [place] [address] 2 [place] [phone] 04/05/2024 9:30 EDT Telemedicine [facility] - [facility] Palliative Care Services [address] [place] [address] [phone] Chichi Woods MD [address] [place] [address], [address] [phone] 04/11/2024 15:00 EDT Telemedicine [facility] Hematology & Oncology - [address] [phone] Alisson Carreon MD [address] [place] [address] 2 [place] [phone] 04/13/2024 13:30 EDT Appointment [facility] Hematology & Oncology - [address] [id number] 04/13/2024 14:00 EDT Appointment [facility] Hematology & Oncology - [address] [address] 04/16/2024 10:00 EST Telemedicine [facility] - [facility] Palliative Care Services [address] [place] [address] 011901 Chichi Woods MD [address] [place] [phone] 04/24/2024 9:00 EST Appointment [facility] Radiology CT Outpatient - [address] [address] 04/24/2024 11:00 EST Appointment [facility] Breast Imaging - [facility] [address] 589691 04/27/2024 12:00 EST Appointment [facility] Hematology & Oncology - [address] 315351 05/02/2024 15:00 EST Telemedicine [facility] Hematology & Oncology - [address] 553411 Alisson Carreon MD [address] [place] [address], [facility], Level [address] [place] [phone] 05/04/2024 10:15 EST Ancillary Procedure [facility] Cardiology - [address] [place], [place] [phone] 05/04/2024 11:30 EST Appointment [facility] Hematology & Oncology - [address] [phone] 05/04/2024 12:00 EST Appointment [facility] Hematology & Oncology - [address] 044351 06/12/2024 13:00 EST Appointment [facility] Radiology CT - [address] [phone] documented as of this encounter Visit Diagnoses Not on filedocumented in this encounter Care Teams Senior Management Consultant Relationship Specialty Start Date End Date Linda Blancas MD [facility] [address] [place] [address] PCP - General 01/06/11 Adolfo Carreno MD [address] [place] [address] 2 [place] [phone] General Surgery 04/26/19 Augustina Colin MD PhD [address] [place] [address] 2 [place] [phone] Medical Oncology 04/26/19 documented as of this encounter
--- OUTSIDE RECORDS SUMMARY | 2024-03-20 14:39 | XMS_ITS | Encounter Summary ---
Author Organization [facility] Address [address] [place] [address] Care Team Providers Care Health Diagnostics Teacher Name Role Phone Linda Blancas MD Primary Care Provider [phone] Adolfo Carreno MD Unavailable [phone] Augustina Colin MD PhD Unavailable Unavailable Encounter Details Date Type Department Care Team (Latest Contact Info) Description 11/09/2023 Documentation Visit [facility] Hematology & Oncology - Main [place] [address] [place], [place] 15[address] Zulma Acevedo RN Primary malignant neoplasm of breast with [...] Progress Notes * Zulma Acevedo RN - 11/09/2023 0911 EDT [facility] Anatomic Pathology Add-on Testing Request form sent to pathology @ [phone] via fax. Callplaced to pathology/cytology to discuss testing, new order for NON-FORMING TUBE SELECTOR/FNA CYTOLOGY placed for testing of specimen, lab confirmed specimen in clinic, will add on cytology to abdominal sample collected in ER on 11/07. Lab aware to call with any questions or concerns, should have results by end of day. Provider updated. documented in this encounter Plan of Treatment Upcoming Encounters Date Type Department Care Team (Late st Contact Info) Description 04/02/2024 10:30 EDT Appointment [facility] Interventional Radiology Unit [address] [place] [address] [phone] 04/02/2024 15:15 EDT Office Visit [facility] Surgical Oncology - [facility] [address] [place], [place] [phone] Adolfo Carreno MD 111 [facility], Level 2 [place] [phone] 04/05/2024 9:[address] [facility] - [facility] Palliative Care Services [address] [place], [place] [phone] Chichi Woods MD 111 [facility], [address] [place] [phone] 04/11/2024 15:00 EDT Telemedicine [facility] Hematology & Oncology - [address] 715191 Alisson Carreon MD [address] [place] [address] 2 [place] [phone] 04/13/2024 13:30 EDT Appointment [facility] Hematology & Oncology - [address] [id number] 04/13/2024 14:00 EDT Appointment [facility] Hematology & Oncology - [address] 196301 04/16/2024 10:[address] [facility] - [facility] Palliative Care Services [address] [place] [address] [phone] Chichi Woods MD [address] [place], [place] [phone] 04/24/2024 9:00 EST Appointment [facility] Radiology CT Outpatient - [address] [id number] 04/24/2024 11:00 EST Appointment [facility] Breast Imaging - [address] [phone] 04/27/2024 12:00 EST Appointment [facility] Hematology & Oncology - [address] 813621 05/02/2024 15:00 EST Telemedicine [facility] Hematology & Oncology - [address] [phone] Alisson Carreon MD [address] [place] [address], [facility] 2 [place] [phone] 05/04/2024 10:15 EST Ancillary Procedure [facility] Cardiology - [place] [address] 05/04/2024 11:30 EST Appointment [facility] Hematology & Oncology - [address] [address] 05/04/2024 12:00 EST Appointment [facility] Hematology & Oncology - [address] [address] 06/12/2024 13:00 EST Appointment [facility] Radiology CT - [address] [address] documented as of this encounter Procedures Procedure Name Priority Date/Time Associated Diagnosis Comments NON FORMING TUBE SELECTOR/FNA CYTOLOGY STAT 11/09/2023 2:17 EDT Primary malignant neoplasm of breast with metastasis (HCC-CMS) documented in this encounter Results * NON FORMING TUBE SELECTOR/FNA CYTOLOGY (11/09/2023 2:17 EDT) Note to Patient The following pathology results have been interpreted by your pathologist and may be available to you before your health provider has had the opportunity to review them. Please allow time for your provider to receive these results and explore management options, if applicable. 13:[address] [facility] Final Diagnosis A. PERITONEAL FLUID, CYTOLOGIC EVALUATION: - Negative for malignant cells. See comment. - Scattered mesothelial cells and numerous histiocytes in a background of mixed inflammation. 13:50 [facility] Diagnosis Comment A cell block was prepared and examined to increase diagnostic sensitivity and shows clusters and single lying cells. Immunohistochemistry was performed and demonstrates clusters composed of histiocytes with scattered mesothelial cells. Claudin 4 and GATA3 are negative. This case was reviewed in conjunction with the prior lung biopsy ([id number]) and liver FNA ([id number]). Paste Mixer slides of this case were reviewed at the intradepartmental consultation conference. Immunoperoxidase stains were performed on this case to further characterize the lesion. ANTIBODY(CLONE)(BLOCK) :RESULT Claudin 4 (3E2C1, [employer]) (cell block): Negative GATA3 ([id number], [place]) (cell block): Highlights background lymphocytes Calretinin (CAL6, Leica) (cell block): Highlights scattered mesothelial cells D2-40 (Podoplanin)(D2-40, Leica) (cell block): Highlights scattered mesothelial cells CD68 (514H12, Leica) (cell block): Positive in numerous groups and single lying histiocytes NOTE: One or more of the reagents used in immunoperoxidase testing in this case may not have been cleared or approved by the U.S. Food and Drug Administration (FDA). The FDA has determined that such clearance or approval is not necessary. These tests are used for clinical purposes. They should not be regarded as investigational or for research. These reagents' performance characteristics have been determined by [facility] and/or by the referring laboratory. The positive and negative controls worked appropriately. If immunoperoxidase staining has been performed on alcohol fixed cytology specimens, which has not been fully validated, the assays should be interpreted with caution and correlated with clinical data. This laboratory is certified under the Clinical Laboratory Improvement Amendments of 1988 (CLIA-88) as qualified to perform high complexity clinical laboratory testing. 4 13:50 [facility] Attestation By the signature below, the attending physician certifies that they have personally conducted a gross and/or microscopic examination of the described specimens and rendered or confirmed the above diagnosis. 4 13:50 [facility] at 1350 Clinical History Breast Cancer, new ascites 4 13:50 [facility] Gross Description A. 700 cc's of cloudy yellow fluid were received and processed by selective cellular enhancement technique. 4 13:50 [facility] Performing Lab [facility] HOSP[facility] LAB 4 13:50 [facility] Scanned Images 4 13:50 [facility] Fluid PERITONEAL FLUID / Unknown 11/09/2023 2:17 EDT 11/09/2023 9:31 EDT Augustina Colin MD PhD PATHOLOGY ORDERABLES [facility] [address] [place], [place] [address] documented in this encounter Visit Diagnoses Diagnosis Primary malignant neoplasm of breast with metastasis (HCC-CMS)- Primary documented in this encounter Care Teams Health Diagnostics Teacher Relationship Specialty Start Date End Date Linda Blancas MD [facility] [address] [place] [address] PCP - General 01/06/11 Adolfo Carreno MD [address] [address] General Surgery 04/26/19 Augustina Colin MD PhD [address] [phone] Medical Oncology 04/26/19 documented as of this encounter
--- OUTSIDE RECORDS SUMMARY | 2024-03-20 14:39 | XMS_ITS | Encounter Summary ---
Author Organization [facility] Address [address] [place] [address] Care Team Providers Care Grappler Name Role Phone Linda Blancas MD Primary Care Provider [phone] Adolfo Carreno MD Unavailable [phone] Augustina Colin MD PhD Unavailable Unavailable Reason for Visit * Reason Onset Date Comments Appointment Related 11/21/2023 Encounter Details Date Type Department Care Team (Late st Contact Info) Description 11/21/2023 Telephone [facility] Palliative Care Services [address] [place] [address] Pippa White RN Appointment Related Social History [...] Telephone Encounter - Pippa White RN - 11/21/2023 0984 EDT Referral from med/onc: Auth Provider: AUGUSTINA COLIN Enc Provider: Zulma Acevedo RN Diagnosis: Primary malignant neoplasm of breast with metastasis Per IR 11/16/[address] Moya 63-year-old female with multifocal breast cancer liver [...] made for repeat radioembolization of the liver. -hepatology, Dr. Vergara 11/14/23 note re: mgmt of ascites-portal HTN, 11/09/23 fluid negative formalignancy thought not to be peritoneal carcinomatosis, spontaneous improvement with planned US andfluid testing suggested if ascites recurs --Call to patient/family to discuss palliative care referral that our office received. -Left a message that I was calling to see if they wished to proceed with scheduling a consultation with one of the [facility] Outpatient Palliative Care providers which would be in addition to their currenthealthcare team. I said that no other care would stop if they also seeing one of the palliative care providers since it is in addition to their current care. -Left scheduling number ([phone]) on voicemail. -I said I am happy to speak with them if they call back to schedule and have any questions about palliative care. -Sendy would be onc palliative visit and per chart has done telehealth, so scheduling could be Carlos Desouza NP or Dr. Woods. Pippa White, pipe welder Services [address] [phone] [email or web address] Office days: Mondays, Tuesdays, and documented in this encounter Plan of Treatment Upcoming Encounters Date Type Department Care Team (Late st Contact Info) Description 04/02/2024 10:30 EDT Appointment [facility] Interventional Radiology Unit [address] [place] [phone] 04/02/2024 15:15 EDT Office Visit [facility] Surgical Oncology - [address] [phone] Adolfo Carreno MD [address] [place] [phone] 04/05/2024 9:30 EDT Telemedicine [facility] Palliative Care Services [address] [place] [address] [phone] Chichi Woods MD [address] [place] [phone] 04/11/2024 15:00 EDT Telemedicine [facility] Hematology & Oncology [address] 220751 Alisson Carreon MD [address] [place] [phone] 04/13/2024 13:30 EDT Appointment [facility] Hematology & Oncology [address] [phone] 04/13/2024 14:00 EDT Appointment [facility] Hematology & Oncology - [address] [address] 04/16/2024 10:00 EST Telemedicine [facility] - [facility] Palliative Care Services [address] [place] [address] [phone] Chichi Woods MD 111 [facility], [address] [phone] 04/24/2024 9:00 EST Appointment [facility] Radiology CT Outpatient - [address] [address] 04/24/2024 11:00 EST Appointment [facility] Breast Imaging - [facility] S [address] [phone] 04/27/2024 12:00 EST Appointment [facility] Hematology & Oncology - [address] 883281 05/02/2024 15:00 EST Telemedicine [facility] Hematology & Oncology [address] [phone] Alisson Carreon MD [address] [place] [address], Level 2 [place] [phone] 05/04/2024 10:15 EST Ancillary Procedure [facility] Cardiology [place] [place] [address] 05/04/2024 11:30 EST Appointment [facility] Hematology & Oncology [address] [address] 05/04/2024 12:00 EST Appointment [facility] Hematology & Oncology - [address] 341291 06/12/2024 13:00 EST [facility] Rad[facility] - [address] [address] documented as of this encounter Visit Diagnoses Not on filedocumented in this encounter Care Teams Grappler Relationship Specialty Start Date End Date Linda Blancas MD [facility] [address] [place] [address] PCP - General 01/06/11 Adolfo Carreno MD [address] [place] [address], [facility] 2 [place] [phone] General Surgery 04/26/19 Augustina Colin MD PhD [address] [place] [address], [facility] 2 [place] [address] Medical Oncology 04/26/19 documented as of this encounter
--- OUTSIDE RECORDS SUMMARY | 2024-03-20 14:40 | XMS_ITS | Encounter Summary ---
Author Organization [facility] Address [address] [place] [address] Care Team Providers Care Continuous Process Machine Operator Name Role Phone Linda Blancas MD Primary Care Provider [phone] Adolfo Carreno MD Unavailable [phone] Augustina Colin MD PhD Unavailable Unavailable Reason for Visit * Vascular Lab (Routine) - Authorization Not Required Specialty Diagnoses / Procedures Referred By Contdayanna t Referred To Contact Diagnoses Edema of left upper arm Malignant neoplasm of breast, stage 4, unspecified laterality (HCC-CMS) Procedures US UPPER VENOUS DUPLEX Nadeen Blood, RADHAC 111 [facility], [facility] 2 [place] [address] [facility] Vascular Lab Referral ID Status Reason Start Date Expiration Date Visits Requested Visits Authorized [id number] Authorization Not Required 11/03/2023 1 1 Encounter Details Date Type Department Care Team (Latest Contact Info) Description 11/03/2023 14:00 EDT Ancillary Procedure [facility] Vascular Surgery - [facility] [address] [place], [place] [phone] Edema of left upper arm; Malignant neoplasm of breast, stage 4, unspecified laterality (HCC-CMS) Social History Tobacco Use Types Packs/Day [...] you have serious difficulty h earing? No 07/07/2017 Do you have serious difficul ty walking [...] Info) Description 04/02/2024 10:30 EDT Appointment [facility] Interventional Radiology Unit [address] [place] [address] 110691 04/02/2024 15:15 EDT Office Visit [facility] Surgical Oncology - [address] 354761 Adolfo Carreno MD 111 [facility], Level 2 [place] [phone] 04/05/2024 9:30 EDT Telemedicine [facility] - [facility] Palliative Care Services [address] [place], [place] 6748[address] Chichi Woods MD 111 [facility], [address] [phone] 04/11/2024 15:00 EDT Telemedicine [facility] Hematology & Oncology - Main [address] [phone] Alisson Carreon MD [address] [place] [address] 2 [place] [phone] 04/13/2024 13:30 EDT Appointment [facility] Hematology & Oncology - [address] [phone] 04/13/2024 14:00 EDT Appointment [facility] Hematology & Oncology - [address] 191491 04/16/2024 10:00 EST Telemedicine [facility] - [facility] Palliative Care Services [address] [place] [address] [phone] Chichi Woods MD [address] [place] [phone] 04/24/2024 9:00 EST Appointment [facility] Radiology CT Outpatient - [address] 111251 04/24/2024 11:00 EST Appointment [facility] Breast Imaging - [facility] S [address] 625831 04/27/2024 12:00 EST Appointment [facility] Hematology & Oncology - [address] 707011 05/02/2024 15:00 EST Telemedicine [facility] Hematology & Oncology - [address] 155251 Alisson Carreon MD [address] [place] [address], [facility] 2 [place] [phone] 05/04/2024 10:15 EST Ancillary Procedure [facility] Cardiology - [address] [place], [place] [phone] 05/04/2024 11:30 EST Appointment [facility] Hematology & Oncology [address] [address] 05/04/2024 12:00 EST Appointment [facility] Hematology & Oncology [address] [address] 06/12/2024 13:00 EST Appointment [facility] Radiology CT - [address] [address] documented as of this encounter Procedures Procedure Name Priority Date/Time Associated Diagnosis Comments US UPPER VENOUS DUPLEX (DVT) LEFT Routine 11/03/2023 14:16 EDT Edema of left upper arm Malignant neoplasm of breast, stage 4, unspecified laterality (HCC-CMS) documented in this encounter Results * US UPPER VENOUS DUPLEX (DVT) LEFT (11/03/2023 14:16 EDT) Anatomical Region Laterality Modality Vascular Ultrasound Narrative 11/07/2023 10:06 EDT ?No evidence of deep venous thrombosis in the left upper extremity. Venous HPI and Indications Upper extremity swelling. Venous Past Medical History Cancer. Left Upper Venous Other The left internal jugular, brachiocephalic, subclavian, cephalic, axillary, basilic, and brachial veins demonstrate normal Doppler flow/waveforms and no sonographic evidence of thrombus. Nadeen Blood PA-C IMG US VASCULAR O RDERABLES documented in this encounter Visit Diagnoses Diagnosis Edema of left upper arm Malignant neoplasm of breast, stage 4, unspecified laterality (HCC-CMS) documented in this encounter Care Teams Continuous Process Machine Operator Relationship Specialty Start Date End Date Linda Blancas MD [facility] [address] [place] [address] PCP - General 01/06/11 Adolfo Carreno MD [address] [place] [address], [facility], Level 2 [place] [phone] General Surgery 04/26/19 Augustina Colin MD PhD [address] [place] [address], [facility] 2 [place] [address] Medical Oncology 04/26/19 documented as of this encounter
--- OUTSIDE RECORDS SUMMARY | 2024-03-20 14:40 | XMS_ITS | Encounter Summary ---
Author Organization [facility] Address [address] [place] [address] Care Team Providers Care Vp Business Development Name Role Phone Linda Blancas MD Primary Care Provider [phone] Adolfo Carreno MD Unavailable [phone] Augustina Colin MD PhD Unavailable Unavailable Encounter Details Date Type Department Care Team (Late st Contact Info) Description 10/28/2023 Orders Only [facility] Gastroenterology - [facility] [address] [place], [place] 338[address] Nettie Sánchez, CARGO AGENT 111 [facility], [facility] 5 [place] [phone] Elevated LFTs (Primary Dx) Social History Tobacco Use Types [...] as of this encounter Progress Notes * Nettie Sánchez NP - 10/28/2023 1054 EDT INR ordered documented in this encounter Plan of Treatment Upcoming Encounters Date Type Department Care Team (Late st Contact Info) Description 04/02/2024 10:30 EDT Appointment [facility] Interventional Radiology Unit [address] [place] [address] [phone] 04/02/2024 15:15 EDT Office Visit [facility] Surgical Oncology - [address] [phone] Adolfo Carreno MD [address] [place] [address], [facility] 2 [place] [phone] 04/05/2024 9:30 EDT Telemedicine [facility] - [facility] Palliative Care Services [address] [place] [address] [phone] Chichi Woods MD [address] [place] [address], [address] [place] [phone] 04/11/2024 15:00 EDT Telemedicine [facility] Hematology & Oncology - [address] 954341 Alisson Carreon MD [address] [place] [address], Level [address] [place] [phone] 04/13/2024 13:30 EDT Appointment [facility] Hematology & Oncology - [address] [phone] 04/13/2024 14:00 EDT Appointment [facility] Hematology & Oncology - [address] [phone] 04/16/2024 10:00 EST Telemedicine [facility] - [facility] Palliative Care Services [address] [place] [address] [phone] Chichi Woods MD [address] [place] [address], [address] [phone] 04/24/2024 9:00 EST Appointment [facility] Radiology CT Outpatient - [address] [address] 04/24/2024 11:00 EST Appointment [facility] Breast Imaging - [facility] S [address] 936131 04/27/2024 12:00 EST Appointment [facility] Hematology & Oncology [address] [phone] 05/02/2024 15:00 EST Telemedicine [facility] Hematology & Oncology - [address] [phone] Alisson Carreon MD [address] [place] [address], Level [address] [place] [phone] 05/04/2024 10:15 EST Ancillary Procedure [facility] Cardiology - [address] [place] [address] 05/04/2024 11:30 EST Appointment [facility] Hematology & Oncology - [address] 796011 05/04/2024 12:00 EST Appointment [facility] Center Hematology & Oncology - [address] [phone] 06/12/2024 13:00 EST [facility]ointment [facility] Radiology CT - [address] [phone] documented as of this encounter Procedures Procedure Name Priority Date/Time Associated Diagnosis Comments PROTIME Routine 11/03/2023 16:33 EDT Elevated LFTs documented in this encounter Results * PROTIME (11/03/2023 16:33 EDT) I.N.R. 1.1 0.9 - 1.1 Ratio 11/03/2023 17:00 EDT [facility] Pro Time 12.7 9.7 - 12.8 secs 11/03/2023 17:00 EDT [facility] Blood VENOUS BLOOD / Unknown Venipuncture / Unknown 11/03/2023 16:33 EDT 11/03/2023 16:40 EDT Narrative [facility] - 11/03/2023 17:00 EDT Moderate Intensity Coumadin INR = 2.0-3.0 Adjustments in anticoagulant therapy dose should be based on the INR and NOT on the Protime. Nettie Sánchez CARGO AGENT HEMATOLOGY & PF4 O RDERABLES [facility] [address] [place], [place] [phone] documented in this encounter Visit Diagnoses Diagnosis Elevated LFTs- Primary Other abnormal blood chemistry documented in this encounter Care Teams Vp Business Development Relationship Specialty Start Date End Date Linda Blancas MD [address] [place] [address] 30 [place] [address] PCP - General 01/06/11 Adolfo Carreno MD 111 [facility] 2 [place] [phone] General Surgery 04/26/19 Augustina Colin MD PhD [address] [phone] Medical Oncology 04/26/19 documented as of this encounter
--- OUTSIDE RECORDS SUMMARY | 2024-03-20 14:40 | XMS_ITS | Encounter Summary ---
Author Organization [facility] Address [address] [place] [address] Care Team Providers Care Basket Weaver Name Role Phone Linda Blancas MD Primary Care Provider [phone] Adolfo Carreno MD Unavailable [phone] Augustina Colin MD PhD Unavailable Unavailable Encounter Details Date Type Department Care Team (Late st Contact Info) Description 10/28/2023 Orders Only [facility] Gastroenterology - [facility] [address] [place], [place] [phone] Nettie Sánchez, SHEET MILL SUPERVISOR 111 [facility], [facility] [address] [place] [address] Social History Tobacco Use Types [...] Appointment [facility] Interventional Radiology Unit [address] [place] [address] [phone] 04/02/2024 15:15 EDT Office Visit [facility] Surgical Oncology - [address] [phone] Adolfo Carreno MD [address] [place] [address] 2 [place] [phone] 04/05/2024 9:[address] [facility] - [facility] Palliative Care Services [address] [place] [address] [phone] Chichi Woods MD [address] [place] [phone] 04/11/2024 15:00 EDT Telemedicine [facility] Hematology & Oncology [address] [phone] Alisson Carreon MD [address] [place] [phone] 04/13/2024 13:30 EDT Appointment [facility] Hematology & Oncology [address] [phone] 04/13/2024 14:00 EDT Appointment [facility] Hematology & Oncology - [address] [address] 04/16/2024 10:[address] [facility] - [facility] Palliative Care Services [address] [place] [address] Chichi Woods MD [address] [place] [address], [address] [phone] 04/24/2024 9:00 EST Appointment [facility] Radiology CT Outpatient - [address] [phone] 04/24/2024 11:00 EST Appointment [facility] Breast Imaging - [address] [address] 04/27/2024 12:00 EST Appointment [facility] Hematology & Oncology - [address] [address] 05/02/2024 15:00 EST Telemedicine [facility] Hematology & Oncology - [address] [phone] Alisson Carreon MD [address] [place] [address], [facility], Level [address] [place] [phone] 05/04/2024 10:15 EST Ancillary Procedure [facility] Cardiology [place] [place] [address] 05/04/2024 11:30 EST Appointment [facility] Hematology & Oncology - [address] [address] 05/04/2024 12:00 EST Appointment [facility] Hematology & Oncology - [address] [address] 06/12/2024 13:00 [facility] - [address] [address] documented as of this encounter Visit Diagnoses Not on filedocumented in this encounter Care Teams Basket Weaver Relationship Specialty Start Date End Date Linda Blancas MD [facility] [address] [place] [address] PCP - General 01/06/11 Adolfo Carreno MD [address] [place] [address] [phone] General Surgery 04/26/19 Augustina Colin MD PhD [address] [place] [phone] Medical Oncology 04/26/19 documented as of this encounter
--- OUTSIDE RECORDS SUMMARY | 2024-03-20 14:40 | XMS_ITS | Encounter Summary ---
Author Organization [facility] Address [address] [place] [address] Care Team Providers Care Drum Builder Name Role Phone Linda Blancas MD Primary Care Provider [phone] Adolfo Carreno MD Unavailable [phone] Augustina Colin MD PhD Unavailable Unavailable Encounter Details Date Type Department Care Team (Late st Contact Info) Description 11/08/2023 Documentation Visit [facility] Hematology & Oncology - [facility] [address] [place] [address] Zulma Acevedo RN Social History Tobacco Use [...] of this encounter Progress Notes * Zulma Acevedo, RN - 11/08/2023 1452 EDT Provider requesting Stat abd US to w/u for ascites, pt had increase of 10lbs over weekend. Per radiology, pt must be NPO for 6 hours prior to US. Provider decided ED would be best place for patient. Pt to head down to ED after PV+ infusion treatment. ED triage called to give report, aware to expectpt after infusion. documented in this encounter Plan of Treatment Upcoming Encounters Date Type Department Care Team (Late st Contact Info) Description 04/02/2024 10:30 EDT Appointment [facility] Interventional Radiology Unit [address] [place] [address] [phone] 04/02/2024 15:15 EDT Office Visit [facility] Surgical Oncology - [address] [phone] Adolfo Carreno MD 111 [facility], Level [address] [place] [phone] 04/05/2024 9:30 EDT Telemedicine [place] [place] [facility] - [facility] Palliative Care Services [address] [place], [place] 4480[address] Chichi Woods MD [address] [place] [address], [place] [address] [place] [phone] 04/11/2024 15:00 EDT Telemedicine [facility] Hematology & Oncology - [facility] [address] [place], [place] 048[address] Alisson Carreon MD 111 [facility], Level [address] [place] [phone] 04/13/2024 13:30 EDT Appointment [facility] Hematology & Oncology [address] [phone] 04/13/2024 14:00 EDT Appointment [facility] Hematology & Oncology [address] 379101 04/16/2024 10:00 EST Telemedicine [facility] - [facility] Palliative Care Services [address] [place] [address] [phone] Chichi Woods MD [address] [place] [address], [place] [address] [place] [phone] 04/24/2024 9:00 EST Appointment [facility] Radiology CT Outpatient - [address] [phone] 04/24/2024 11:00 EST Appointment [facility] Breast Imaging - [facility] [address] [phone] 04/27/2024 12:00 EST Appointment [facility] Hematology & Oncology [address] [phone] 05/02/2024 15:00 EST Telemedicine [facility] Hematology & Oncology - [address] [phone] Alisson Carreon MD [address] [place] [address], [address] [place] [phone] 05/04/2024 10:15 EST Ancillary Procedure [facility] Cardiology - [address] [place], [place] [phone] 05/04/2024 11:30 EST Appointment [facility] Hematology & Oncology - [address] [address] 05/04/2024 12:00 EST Appointment [facility] Hematology & Oncology [address] [address] 06/12/2024 13:00 EST Appointment [facility] Radiology CT - [address] [address] documented as of this encounter Visit Diagnoses Not on filedocumented in this encounter Care Teams Drum Builder Relationship Specialty Start Date End Date Linda Blancas MD [address] [place] [address] 30 [place] [address] PCP - General 01/06/11 Adolfo Carreno MD [address] [place] [address] 2 [place] [phone] General Surgery 04/26/19 Augustina Colin MD PhD [address] [place] [address] 2 [place] [phone] Medical Oncology 04/26/19 documented as of this encounter
--- OUTSIDE RECORDS SUMMARY | 2024-03-20 14:40 | XMS_ITS | Encounter Summary ---
Author Organization [facility] Address [address] [place] [address] Care Team Providers Care Wheelchair Van Driver Name Role Phone Linda Blancas MD Primary Care Provider [phone] Adolfo Carreno MD Unavailable [phone] Augustina Colin MD PhD Unavailable Unavailable Reason for Visit * Reason Onset Date Comments Follow-up 11/04/2023 Encounter Details Date Type Department Care Team (Late st Contact Info) Description 11/04/2023 Telephone [facility] Cancer Center Hematology & Oncology - [place] [address] [place], [place] [phone] Zulma Acevedo RN Follow-up Social History Tobacco [...] Telephone Encounter - Zulma Acevedo RN - 11/04/2023 0932 EDT Call placed to patient to check in following port placement and to check in on bowel habits. No answer, left VM. Will try back later today. documented in this encounter Plan of Treatment Upcoming Encounters Date Type Department Care Team (Late st Contact Info) Description 04/02/2024 10:30 EDT Appointment [facility] Interventional Radiology Unit [address] [place], [place] [phone] 04/02/2024 15:15 EDT Office Visit [facility] Surgical Oncology - [address] [phone] Adolfo Carreno MD [address] [place], [place] [phone] 04/05/2024 9:30 EDT Telemedicine [facility] - [facility] Palliative Care Services [address] [place] [address] [phone] Chichi Woods MD [address] [place] [address], [address] [phone] 04/11/2024 15:00 EDT Telemedicine [facility] Hematology & Oncology [address] [phone] Alisson Carreon MD [address] [place] [address] [phone] 04/13/2024 13:30 EDT Appointment [facility] Hematology & Oncology [address] 708101 04/13/2024 14:00 EDT Appointment [facility] Hematology & Oncology [address] [phone] 04/16/2024 10:00 EST Telemedicine [facility] - [facility] Palliative Care Services [address] [place] [address] [phone] Chichi Woods MD [address] [place] [address] [phone] 04/24/2024 9:00 EST Appointment [facility] Radiology CT Outpatient - [address] [phone] 04/24/2024 11:00 EST Appointment [facility] Breast Imaging - [facility] [address] [place] [address] [place], [place] 2585[address] 04/27/2024 12:00 EST Appointment [facility] Hematology & Oncology [address] [phone] 05/02/2024 15:00 EST Telemedicine [facility] Hematology & Oncology - [address] [phone] Alisson Carreon MD [address] [place] [address], [address] [place] [phone] 05/04/2024 10:15 EST Ancillary Procedure [facility] Cardiology - [place] [address] 05/04/2024 11:30 EST Appointment [facility] Hematology & Oncology - [address] [phone] 05/04/2024 12:00 EST Appointment [facility] Cancer Center Hematology & Oncology - [address] [address] 06/12/2024 13:00 EST Appointment [facility] Center Radiology CT - [address] [address] documented as of this encounter Visit Diagnoses Not on filedocumented in this encounter Care Teams Wheelchair Van Driver Relationship Specialty Start Date End Date Linda Blancas MD [facility] [address] [place] [address] PCP - General 01/06/11 Adolfo Carreno MD [address] [place] [address], [facility] 2 [place] [phone] General Surgery 04/26/19 Augustina Colin MD PhD [address] [place] [address] 2 [place] [phone] Medical Oncology 04/26/19 documented as of this encounter
--- OUTSIDE RECORDS SUMMARY | 2024-03-20 14:40 | XMS_ITS | Encounter Summary ---
Author Organization [facility] Address [address] [place] [address] Care Team Providers Care Explosive Ordnance Disposal Technician Name Role Phone Linda Blancas MD Primary Care Provider [phone] Adolfo Carreno MD Unavailable [phone] Augustina Colin MD PhD Unavailable Unavailable Reason for Referral * Radiology Services (Routine/Next Available) - Authorization Not Required Specialty Diagnoses / Procedures Referred By Contac t Referred To Contact Diagnoses Primary malignant neoplasm of breast with metastasis (HCC-CMS) Procedures CT ABDOMEN PELVIS W CONTRAST Augustina Colin MD PhD [facility] Referral ID Status Reason Start Date Expiration Date Visits Requested Visits Authorized [id number] Authorization Not Required 11/09/2023 1 1 * Radiology Services (Routine/Next Available) - Authorization Not Required Specialty Diagnoses / Procedures Referred By Contac t Referred To Contact Diagnoses Primary malignant neoplasm of breast with metastasis (HCC-CMS) Procedures CT CHEST W CONTRAST Augustina Colin MD PhD [facility] Referral ID Status Reason Start Date Expiration Date Visits Requested Visits Authorized [id number] Authorization Not Required 11/09/2023 1 1 Reason for Visit * Reason Comments Follow-up Encounter Details Date Type Department Care Team (Late st Contact Info) Description 11/08/2023 14:00 EDT Office Visit [facility] Hematology & Oncology - [facility] [address] [place] [address] Augustina Colin MD PhD Primary malignant neoplasm of breast with metastasis [...] Sign Reading Time Taken Comments Blood Pressure 158/67 11/08/2023 1409 EDT Pulse 104 11/08/2023 1409 EDT Temperature 37.1 ??C (98.7 ??F) 11/08/2023 1409 EDT Respiratory Rate 16 11/08/2023 1409 EDT Oxygen Saturation 97% 11/08/2023 1409 EDT Inhaled Oxygen Concentration - - Weight 64.4 kg (141 lb 14.4 oz) 11/08/2023 1409 EDT Height - - Body Mass Index 26.81 11/03/2023 1313 EDT documented in this encounter Functional Status [...] as of this encounter Progress Notes * Augustina Colin MD PhD - 11/08/2023 1400 EDT REASON FOR OFFICE VISIT: Discussion of side effects related to Enhertu PROBLEM LIST: 1. 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 a. Ultrasound performed in [place] identifying an irregular heterogeneous soft tissue mass measuring 1.2 x 1.2 x 1.5 cm. b. Two punch biopsies near the site of the skin changes the right breast perfomed by Dr Carreno 10/21/2016; Pathology identified an invasive ductal type carcinoma involving the epidermis and dermis ofthe skin, nuclear grade 2, which was ER+80%, NH+20%. HER-2 1+ by IHC. 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 1.9 cm tumor at time ofsurgery, well [...] consistent with metastatic breast cancer; ER+ >90%, NH < 5%; HER2 2+ equivocal; Peel FISH testing negative M. Elacestrant initiated early August 2023 2. Restaging scans: - MRI Abdomen 08/31/23 Interval worsening of hepatic metastatic disease with enlarging and numerous new metastases. Increasing small volume peritoneal free fluid and stable splenomegaly, concerning for portal hypertension. Known right iliac metastasis only seen on the localizer sequences and not well assessed. - CT Chest 10/03/23 Slight decrease in size of an enlarged right internal thoracic lymph node, a fewnodules in the right upper lobe and stable size of a dominant nodule within the left upper lobe. Multiple known bilateral rib fractures in different stages of healing, some of which are known to be pa thologic. -CT A/P 10/03/23 Multiple hepatic lesions with largest lesions appearing grossly similar to visualized on the most recent MRI abdomen. Interval increased abdominal and pelvic ascites. Borderline enlarged mesenteric lymph node can suggest disease spread. - Nuclear Bone scan 06/21/23 Interval increase in uptake within multiple regions of radiotracer uptake are consistent with slight worsening metastatic disease. No suspicious new focus of metastatic disease in the bones. 3. 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 Right total mastectomy and implant reconstruction. She had augmentation done with the left breast. A positive margin was present. No additional surgery could be offered because of the location of the margin b. Declined radiation and tamoxifen. 4. 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 5. Gynecologic history: postmenopausal, having had premature ovarian failure at age 38. She is . She has a paternal aunt who had breast cancer in her 30s. Hormone replacement therapy for about 5 years after the premature ovarian failure and discontinued it at the time of DCIS diagnosis. 6. Bone Density - 03/03/21 normal bone density of spine and near osteopenia hips A. Zoledronic acid initiated May 2019; Provided every 6mo as she does not have clear evidence of bone metastasis 7. Other chronic health issues: gastroesophageal reflux disease, COVID positive with hospitalization June 2020 SUBJECTIVE: Ms Morales presents to clinic to discuss side effects related to Enhertu. She had her first dose about 3 weeks ago. She developed swelling in her arm last week. A US was done and there was no thrombosis. It continues to be swollen. And now her left leg is also swollen. She has gained 10 lbs in 10 days. Her abdominal swelling has made it difficult to eat. She has been having incons istent bowel movements. She is more short of breath. ROS: A 10 point review of systems was obtained. Other than described in the subjective she has no concerns or issues. Medications Prior to Today's Visit Medication Sig calcium-vitamin D (OS-CHAR D) 500 mg(1,250mg) -200 unit per tablet Take 1 Tablet by mouth 2 times daily with breakfast and dinner. dexAMETHasone (DECADRON) 4 mg tablet Take 2 Tablets by mouth daily. Take on days 2 and 3 after chemotherapy. elacestrant 345 mg tablet Take 345 mg by mouth daily. (Patient not taking: Reported on 11/03/2023) gabapentin (NEURONTIN) 100 mg capsule Take 2 Caps by mouth 2 times daily. (Patient taking differently: Take 3 Capsules by mouth 2 times daily.) gabapentin (NEURONTIN) 600 mg tablet Take 1 Tablet by mouth every evening. ibuprofen (MOTRIN) 200 mg tablet Take 2 Tablets by mouth as needed. MULTIVITS W-CA,FE,OTHER MIN (WOMEN'S DAILY FORMULA ORAL) Take by mouth daily. mv-mn/C/glutamin/lysin/mkmz198 (A[place]NE, ASCORBATE SODIUM, ORAL) Take by mouth as needed. (Patientnot taking: Reported on 11/03/2023) OMEPRAZOLE ORAL Take 40 mg by mouth 2 times daily. prasterone, dhea, (INTRAROSA) 6.[address] 6.5 mg vaginally daily. (Patient not taking: Reported on 06/16/2023) prochlorperazine (COMPAZINE) 10 mg tablet Take 1 Tablet by mouth every 6 hours as needed for Nausea. RED YEAST RICE EXTRACT ORAL Take 1,200 mg by mouth daily. 600mg 2x a day valACYclovir (VALTREX) 500 mg tablet Take 1 Tab by mouth daily. venlafaxine (EFFEXOR-XR) 150 mg XR capsule Take 1 Cap by mouth daily. No facility-administered medications prior to visit. Social History Tobacco Use Smoking status: Never Smokeless tobacco: Never Substance Use Topics Alcohol use: Yes Alcohol/week: 2.0 standard drinks of alcohol Types: 2 Glasses of wine per week Objective: There were no vitals taken for this visit. Estimated body mass index is 25.13 kg/m?? as calculated from the following: Height as of 11/03/23: 154.9 cm (61). Weight as of 11/03/23: 60.3 kg (133 lb). ECOG Performance Status: 0 General: Comfortable, cooperative and in no apparent distress NEURO: Alert and oriented x 3; Grossly neurologically intact DIAGNOSTIC DATA Hospital Outpatient Visit on 11/08/2023 Component Date Value Ref Range Status WBC 11/08/2023 6.30 4.00 - 12.40 K/cmm Final RBC 11/08/2023 3.46 (L) 3.86 - 5.04 M/cmm Final Hemoglobin 11/08/2023 10.9 (L) 11.6 - 15.2 g/dL Final HCT 11/08/2023 33.4 (L) 34.9 - 44.4 % Final MCV 11/08/2023 97 81 - 98 fL Final MCH 11/08/2023 31.5 26.7 - 33.3 pg Final MCHC 11/08/2023 32.6 32.1 - 35.9 g/dL Final RDW-CV 11/08/2023 19.9 (H) <14.7 % Final RDW-SD 11/08/2023 68.3 (H) <50.4 fl Final PLT 11/08/2023 288 141 - 377 K/cmm Final MPV 11/08/2023 10.0 9.5 - 12.7 fL Final % Neutrophils 11/08/2023 62.3 % Final % Lymphocytes 11/08/2023 11.7 % Final % Monocytes 11/08/2023 23.2 % Final % Eosinophils 11/08/2023 1.0 % Final % Basophils 11/08/2023 1.0 % Final % Immature Grans 11/08/2023 0.8 % Final Absolute Neutrophils 11/08/2023 3.93 2.20 - 8.85 K/cmm Final Absolute Lymphocytes 11/08/2023 0.74 (L) 1.09 - 3.30 K/cmm Final Absolute Monocytes 11/08/2023 1.46 (H) 0.10 - 0.80 K/cmm Final Absolute Eosinophils 11/08/2023 0.06 0.03 - 0.61 K/cmm Final ABS Basophils 11/08/2023 0.06 0.01 - 0.11 K/cmm Final Absolute Immature Grans 11/08/2023 0.05 0.00 - 0.06 K/cmm Final Type of Differential: 11/08/2023 Auto Final ASSESSMENT: Ms O'José-West is a 63-year-old female with metastatic breast cancer. She had been onelacestrant about 2 months. Her scans were relatively stable disease however LFTs, persistent coughsuggest progression. Her Ca 27.29 increased significantly. We switched to Enhertu. She presents forcycle 2. She has several issues that are concerning for ascites and thrombosis. We will provide enehrtu today and ask her to present to the ED after the infusion. Continue Zolendronic acid every 3 mos for now. She takes a vitamin D supplement. PLAN: 1. Enhertu today and every 3 weeks 2. Zoledronic acid today q 3mos; Next due October 2023; Continued Vit D supplementation 3. Patient will present to ED for concern regarding ascites and thrombosis after enhertu. 5. Next ECHO due January 2024 6. Nuclear bone scan in November. Repeat CT C/A/P end of December 2023 (ordered end of October 2023) 7. FUR 3 weeks for enhertu ADDENDUM: She had 1800ml of ascites drained in the ED. Will send for cytology. She was also noted to have a UE thrombus and a PE. The CT abdomen documented in this encounter Plan of Treatment Upcoming Encounters Date Type Department Care Team (Late st Contact Info) Description 04/02/2024 10:30 EDT Appointment [facility] Interventional Radiology Unit [address] [place], [place] [id number] 04/02/2024 15:15 EDT Office Visit [facility] Surgical Oncology - [facility] [address] [place], [place] [address] Adolfo Carreno MD [address] [facility], [facility], [address] [place] [phone] 04/05/2024 9:[address] [facility] - [facility] [address] [place], [place] [phone] Chichi Woods MD [address] [facility], [address] [place] [phone] 04/11/2024 15:00 EDT Telemedicine [facility] Hematology & Oncology - [address] [phone] Alisson Carreon MD [address] [place] [address] 2 [place] [phone] 04/13/2024 13:30 EDT Appointment [facility] Hematology & Oncology [address] [id number] 04/13/2024 14:00 EDT Appointment [facility] Hematology & Oncology [address] [phone] 04/16/2024 10:[address] [facility] - [facility] [address] [place] [id number] Chichi Woods MD [address] [place] [address] [address] [place] [phone] 04/24/2024 9:00 EST Appointment [facility] Radiology CT Outpatient - [address] [id number] 04/24/2024 11:00 EST Appointment [facility] Breast Imaging - [address] [id number] 04/27/2024 12:00 EST Appointment [facility] Hematology & Oncology - [address] [id number] 05/02/2024 15:00 EST Telemedicine [facility] Hematology & Oncology - [address] [phone] Alisson Carroen MD [address] [place] [address] 2 [place] [phone] 05/04/2024 10:15 EST Ancillary Procedure [facility] Cardiology - [address] [place] [address] 05/04/2024 11:30 EST Appointment [facility] Hematology & Oncology [address] [id number] 05/04/2024 12:00 EST Appointment [facility] Hematology & Oncology [address] [id number] 06/12/2024 13:00 EST Appointment [facility] Radiology CT [address] [id number] documented as of this encounter Results * CT ABDOMEN PELVIS [...] Signs of cirrhosis with ascites and varices. [id number] Narrative 03/13/2024 16:[address] ABDOMEN PELVIS [...] No new suspicious osseous lesions are present. Multineedle Shirrer: No additional findings. Resulting Agency Comment [id number] Procedure Note Tylor Melendez MD - 03/13/2024 [...] unchanged. No newsuspicious osseous lesions are present. Multineedle Shirrer: No additional findings. IMPRESSION Stable to slight decrease in size and diminished enhancement of numeroushepatic metastases. 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 Interval decrease in volume of ascites. Interval decrease in conspicuity of mucosal hyperenhancement of the smallbowel which could be explained by infectious enteritis or be medicationrelated. Cholelithiasis without cholecystitis. 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 [id number] Augustina Colin MD PhD IMG CT ORDERABLES [...] above interpretation and agree with the findings. [id number] Narrative 03/13/2024 11:[address] CHEST W [...] Old bilateral rib fractures. Resulting Agency Comment [id number] Procedure Note Mallorie Andrews MD - 03/13/2024 CT CHEST W CONTRAST 03/13/2024 8:08 AM Clinical History/Comments: metastatic BC. History of PJP pneumonia and pneumonitis. Technique: CT scan of the chest with intravenous contrast material was performed. This CT used either dose modulation and/or iterative reconstructiontechniques to lower radiation dose. Comparison: Chest CT studies 01/05/2024 and 02/07/2024. Concurrent CT abdomen [id number]. Findings: Lower neck: Right jugular approach chest [...] the above interpretation andagree with the findings. [id number] Augustina Colin MD PhD IMG CT ORDERABLES documented in this encounter Visit Diagnoses Diagnosis Primary malignant neoplasm of breast with metastasis (HCC-CMS)- Primary Primary malignant neoplasm of breast with metastasis (HCC-CMS) documented in this encounter Care Teams Explosive Ordnance Disposal Technician Relationship Specialty Start Date End Date Linda Blancas MD [address] [place] [address] [address] [place] [address] PCP - General 01/06/11 Adolfo Carreno MD [address] [place] [phone] General Surgery 04/26/19 Augustina Colin MD PhD [address] [place] [phone] Medical Oncology 04/26/19 documented as of this encounter
--- OUTSIDE RECORDS SUMMARY | 2024-03-20 14:40 | XMS_ITS | Encounter Summary ---
Author Organization [facility] Address [address] [place] [address] Care Team Providers Care Core Maker Name Role Phone Linda Blancas MD Primary Care Provider [phone] Adolfo Carreno MD Unavailable [phone] Augustina Colin MD PhD Unavailable Unavailable Reason for Visit * Reason Comments New Patient Visit Constipation / Notes in Epic // Joy confirmed 10/26/23 5:45pm * Consult (Urgent) - Receiving Office to Obtain Authorization Specialty Diagnoses / Procedures Referred By Contact Referred To Contact Gastroenterology and Hepatology Diagnoses Primary malignant neoplasm of breast with metastasis (HCC-CMS) Augustina Colin MD PhD [facility] [facility] [address] [place] [address] Referral ID Status Reason Start Date Expiration Date Visits Requested Visits Authorized [id number] Receiving Office to Obtain Authorization Specialty Services Required 10/18/2023 1 1 Encounter Details Date Type Department Care Team (Late st Contact Info) Description 10/27/2023 14:30 EDT Office Visit [facility] Gastroenterology - [facility] [address] [place] [address] Nettie Sánchez, VP [employer] [address] [facility], [address] [place] [address] Drug-induced constipation (Primary Dx); Generalized abdominal pain; Early satiety; Black stools; Hematochezia; Dysphagia, unspecified type; Other ascites; Portal hypertension ([facility]) Social History Tobacco Use Types Packs/Day [...] Sign Reading Time Taken Comments Blood Pressure 128/72 10/27/2023 1420 EDT Pulse 96 10/27/2023 1420 EDT Temperature - - Respiratory Rate - - Oxygen Saturation 98% 10/27/2023 1420 EDT Inhaled Oxygen Concentration - - Weight 60 kg (132 lb 3.2 oz) 10/27/2023 1420 EDT Height 155 cm (5' 1.02) 10/27/2023 1420 EDT Body Mass Index 24.96 10/27/2023 1420 EDT documented in this encounter Functional Status [...] this encounter Patient Instructions * Patient Instructions* Nettie Sánchez NP - 10/27/2023 14:30 EDT Miralax cleanout: --Take 16 capfuls Miralax powder in 64 oz of fluid. --Drink 4-8oz every 30 minutes. Should take 4-6 hours to complete medicine. --After finishing medication, drink more water and/or juice --If it upsets your stomach, slow down or stop documented in this encounter Progress Notes * Nettie Sánchez NP - 10/27/2023 1430 EDT Gastroenterology & Hepatology Initial Visit Reason for Referral: Constipation PCP: Linda Blancas Impression: Constipation, bloating, early satiety may be related to constipation from medication side effect. Abdominal distension also likely r/t ascites seen on recent imaging. Will facilitate referral to hepatology as requested by ED healthcare practitioner. Had normal colonoscopy per patient reports at [facility] January 2024. Discussed bowel regimen. If persistent symptoms despite improved bowel habits, will plan for endoscopy, particularly new new onset dysphagia and possible hematochezia and melena. We also briefly discussed the role her cancer diagnosis may be playing in her symptoms. Plan: 1. Constipation, bloating, abdominal pain: --Complete Miralax cleanout --Continue daily Miralax; reviewed how to titrate 2. Early satiety: --Encouraged smaller more frequent meals --Start protein shakes, soups, smoothies 3. GERD: --Increased omeprazole to 40mg po daily 4. Portal HTN: --Referred to hepatology --Follow-up 2-3 months HPI: Sunshine Pleitez is a 63 y.o. female with a past medical history of breast cancer, LGSIL, HSV here today for consultation regarding constipation. Here today with her , Nitish, who contributes to the HPI. About 13-14 years ago, L3-S1 spinal fusion. Reports after that time, knife like pain in abdomen after eating. Did not depend on what she ate and could occur independent of eating as well. Lasted for about 2-3 years, but then started occurring less frequently. Started capecitabine and started having small hard stools 2-3x/week with straining and pain. Started having generalized severe abdominal cramping before BMs, after eating and occasionally with bending over. Symptoms were accompanied by generalized abdominal bloating and decreased appetite. Started having abdominal pain and fullness, nausea within several bites of food. No vomiting. Symptoms worsened on Orserdu. Noted more straining, difficulty passing stool and increased gas/flatulence. Subsequently told to take 3 tabs senna, 3 caps colace, 1 capful of miralax. Resulted in diarrhea. Bloating did not improve. Diarrhea resolved and constipation returned. Seen in the ED ([facility]) 10/13 and had imaging that r/o bowel obstruction. Was noted to havesplenomegaly and worsening abdominopelvic ascites. Visualized multiple known hepatic lesions. Imaging concerning for portal hypertension. Incidentally found to have cholelithiasis, but without cholecy stitis. Told to follow up with oncology and hepatology and discharged to home. Reports has been on omeprazole 20mg po daily for about 20/25 years. Has recently had worsening heartburn along with the early satiety. Had severe burning in chest and throat 3-4 times recently. Last occurs about 2 weeks ago. Has had regurgitation and in fact patient had effortless regurgitation while speaking with me at today's appointment. No dysphagia to food, but pills have been more difficulty to sallow and patient reports one pill effortlessly came back up immediately after swallowing. Other symptoms include fatigue, difficulty sleeping (using zolpidem to sleep), cramping in hands and legs, lower back pain. Continues to have abdominal bloating, cramping, decreased appetite, early satiety and infrequent small, hard stools. Has notice some red and black stools. Last red blood seen mixed into the stool about 7 weeks ago. Reports last black stool occurred about 4 weeks ago (had lasted 3 days in a row). Initially lost about 3.5 lbs, but reports weight is now stable. Will see pulmonology next month for chronic cough. Therapy tried: Miralax Senna Colace Psyllium Magnesium Medications with significant side effect of constipation: Compazine Enhertu Gabapentin Venlafaxine Elacestrant Pertinent labs, imaging, procedures: CT AP 10/03/2023: 1. Multiple hepatic lesions with largest lesions appearing grossly similar to visualized on the most recent MRI abdomen. 2. Interval increased abdominal and pelvic ascites. 3. Borderline enlarged mesenteric lymph node can suggest disease spread. 4. Mild interval increased lytic right iliac bone lesion compared with 2021 with difficult comparison with most recent studies as it wasn't included in the femuo-bt-bcdx. Limited evaluation of lumbarspine due to streak artifact caused by hardware. 5. Splenomegaly. 6. Cholelithiasis. MR Abdomen 08/31/2023: 1. Interval worsening of hepatic metastatic disease with enlarging and numerous new metastases. 2. Increasing small volume peritoneal free fluid and stable splenomegaly, concerning for portal hypertension. 3. Known right iliac metastasis only seen on the localizer sequences and not well assessed. Lab Results Component Value Date WBC 4.96 10/27/2023 HGB 10.5 (L) 10/27/2023 HCT 31.7 (L) 10/27/2023 MCV 95 10/27/2023 PLT 116 (L) 10/27/2023 Lab Results Component Value Date Albumin 2.9 (L) 10/27/2023 ALT 60 (H) 10/27/2023 AST 97 (H) 10/27/2023 Alkaline Phosphatase 416 (H) 10/27/2023 Total Protein 5.8 (L) 10/27/2023 Bilirubin, Total 1.5 (H) 10/27/2023 Conjugated Bilirubin 0.0 07/13/2006 Unconjugated Bilirubin 0.8 07/13/2006 PMH: As stated in HPI. ROS: A 10-point ROS was performed and is negative other than stated in HPI. Current Outpatient Medications: calcium-vitamin D (OS-CHAR D) 500 mg(1,250mg) -200 unit per tablet, Take 1 Tablet by mouth 2 times daily with breakfast and dinner., Disp: , Rfl: dexAMETHasone (DECADRON) 4 mg tablet, Take 2 Tablets by mouth daily. Take on days 2 and 3 after chemotherapy., Disp: 12 Tablet, Rfl: 5 elacestrant 345 mg tablet, Take 345 mg by mouth daily., Disp: 30 Tablet, Rfl: 2 gabapentin (NEURONTIN) 100 mg capsule, Take 2 Caps by mouth 2 times daily. (Patient taking differently: Take 3 Capsules by mouth 2 times daily.), Disp: 360 Cap, Rfl: 3 gabapentin (NEURONTIN) 600 mg tablet, Take 1 Tablet by mouth every evening., Disp: , Rfl: ibuprofen (MOTRIN) 200 mg tablet, Take 2 Tablets by mouth as needed., Disp: , Rfl: MULTIVITS W-CA,FE,OTHER MIN (WOMEN'S DAILY FORMULA ORAL), Take by mouth daily., Disp: , Rfl: mv-mn/C/glutamin/lysin/gvfm001 ([place], ASCORBATE SODIUM, ORAL), Take by mouth as needed., Disp: , Rfl: OMEPRAZOLE ORAL, Take 20 mg by mouth 2 times daily., Disp: , Rfl: prasterone, dhea, (INTRAROSA) 6.5 mg insert, Place 6.5 mg vaginally daily. (Patient not taking: Reported on 06/16/2023), Disp: 28 Each, Rfl: 4 prochlorperazine (COMPAZINE) 10 mg tablet, Take 1 [...] mouth daily., Disp: 90 Cap, Rfl: 3 Allergies Allergen Reactions Amoxicillin Other (See Comments) and Rash Red rash Sulfa (Sulfonamide Antibiotics) Hives Light lavender rash Sulfamethoxazole-Trimethoprim Rash Objective: Last Vitals: BP 128/72 Pulse 96 Ht 155 cm (61.02) Wt 60 kg (132 lb 3.2 oz) SpO2 98% BMI 24.96 kg/m?? General: Well appearing and in NAD. Speech is fluent and clear. Skin: Color pink. Warm and dry. Nails without clubbing or cyanosis. HEENT: Conjunctiva pink, sclera white. Resp: No accessory muscle use. Abd: Soft, distended, generalized abdominal discomfort and RUQ/RLQ tenderness to palpation. Positive bowel sounds. No guarding or rebound tenderness. Nettie Sánchez NP Gastroenterology & Hepatology I spent a total of 75 minutes on the date of this encounter meeting with the patient and reviewing documentation/coordinating care as described in the above note. documented in this encounter Plan of Treatment Upcoming Encounters Date Type Department Care Team (Late st Contact Info) Description 04/02/2024 10:30 EDT Appointment [facility] Interventional Radiology Unit [address] [place], [place] [id number] 04/02/2024 15:15 EDT Office Visit [facility] Surgical Oncology - [address] [id number] Adolfo Carreno MD [address] [place] [address] [phone] 04/05/2024 9:30 EDT Telemedicine [facility] Palliative Care Services [address] [place] [phone] Chichi Woods MD [address] [place] [address] [phone] 04/11/2024 15:00 EDT Telemedicine [facility] Hematology & Oncology - [address] [phone] Alisson Carreon MD [address] [place] [address] [phone] 04/13/2024 13:30 EDT Appointment [facility] Hematology & Oncology - [address] [phone] 04/13/2024 14:00 EDT Appointment [facility] Hematology & Oncology - [address] [id number] 04/16/2024 10:00 EST Telemedicine [facility] Palliative Care Services [address] [place] [place] [address] [phone] Chichi Woods MD [address] [place] [address] [phone] 04/24/2024 9:00 EST Appointment [facility] Radiology CT Outpatient - [address] [address] 04/24/2024 11:00 EST Appointment [facility] Breast Imaging - [facility] [address] [place] [address] [place] [address] 04/27/2024 12:00 EST Appointment [facility] Hematology & Oncology [address] [address] 05/02/2024 15:00 EST Telemedicine [facility] Hematology & Oncology [address] [phone] Alisson Carreon MD [address] [place] [address], [address] [place] [phone] 05/04/2024 10:15 EST Ancillary Procedure [facility] Cardiology - [address] [place] [address] 05/04/2024 11:30 EST Appointment [facility] Hematology & Oncology - [address] [id number] 05/04/2024 12:00 EST Appointment [facility] Hematology & Oncology [address] [phone] 06/12/2024 13:00 EST Appointment [facility] Radiology CT - [address] [id number] documented as of this encounter Visit Diagnoses Diagnosis Drug-induced constipation- Primary Other constipation Generalized abdominal pain Abdominal pain, generalized Early satiety Black stools Nonspecific abnormal finding in stool contents Hematochezia Blood in stool Dysphagia, unspecified type Other ascites Portal hypertension (HCC-CMS) Portal hypertension documented in this encounter Care Teams Core Maker Relationship Specialty Start Date End Date Linda Blancas MD [address] [place] [address] 30 [place] [address] PCP - General 01/06/11 Adolfo Carreno MD [address] [place] [address] [address] [place] [phone] General Surgery 04/26/19 Augustina Colin MD PhD [address] [place] [phone] Medical Oncology 04/26/19 documented as of this encounter
--- OUTSIDE RECORDS SUMMARY | 2024-03-20 14:40 | XMS_ITS | Encounter Summary ---
Author Organization [facility] Address [address] [place] [address] Care Team Providers Care Coin Box Inspector Name Role Phone Linda Blancas MD Primary Care Provider [phone] Adolfo Carreno MD Unavailable [phone] Augustina Colin MD PhD Unavailable Unavailable Encounter Details Date Type Department Care Team (Late st Contact Info) Description 11/07/2023 Orders Only [facility] Hematology & Oncology - [facility] [address] [place], [place] [address] Augustina Colin, PhD Social History Tobacco Use Types [...] Contact Info) Description 04/02/2024 10:30 EDT Appointment [facility] Interventional Radiology Unit [address] [place] [address] [id number] 04/02/2024 15:15 EDT Office Visit [facility] Surgical Oncology - [address] [phone] Adolfo Carreno MD [address] [place] [address] [phone] 04/05/2024 9:30 EDT Telemedicine [facility] - [facility] Palliative Care Services [address] [place] [address] [phone] Chichi Woods MD [address] [place] [address] [phone] 04/11/2024 15:00 EDT Telemedicine [facility] Hematology & Oncology [address] [phone] Alisson Carreon MD [address] [place] [address] [phone] 04/13/2024 13:30 EDT Appointment [facility] Hematology & Oncology [address] [phone] 04/13/2024 14:00 EDT Appointment [facility] Hematology & Oncology [address] [phone] 04/16/2024 10:00 EST Telemedicine [facility] - [facility] Palliative Care Services [address] [place] [address] [phone] Chichi Woods MD [address] [place] [address], [address] [phone] 04/24/2024 9:00 EST Appointment [facility] Radiology CT Outpatient - [address] [phone] 04/24/2024 11:00 EST Appointment [facility] Breast Imaging - [facility] [address] [place] [address] [place], [place] [address] 04/27/2024 12:00 EST Appointment [facility] Hematology & Oncology - [address] [phone] 05/02/2024 15:00 EST Telemedicine [facility] Hematology & Oncology - [address] [address] Alisson Carreon MD [address] [place] [address], [facility], [address] [place] [phone] 05/04/2024 10:15 EST Ancillary Procedure [facility] Cardiology - [address] [place], [place] [phone] 05/04/2024 11:30 EST Appointment [facility] Hematology & Oncology - [address] [phone] 05/04/2024 12:00 EST Appointment [facility] Hematology & Oncology [address] [phone] 06/12/2024 13:00 EST Appointment [facility] Radiology CT - [address] [phone] documented as of this encounter Visit Diagnoses Not on filedocumented in this encounter Care Teams Coin Box Inspector Relationship Specialty Start Date End Date Linda Blancas MD [facility] [address] [place] [address] PCP - General 01/06/11 Adolfo Carreno MD [address] [place] [address], [facility] 2 [place] [phone] General Surgery 04/26/19 Augustina Colin MD PhD [address] [place] [address], [facility] 2 [place] [phone] Medical Oncology 04/26/19 documented as of this encounter
--- OUTSIDE RECORDS SUMMARY | 2024-03-20 14:40 | XMS_ITS | Encounter Summary ---
Author Organization [facility] Address [address] [place] [address] Care Team Providers Care Spinning Machine Tender Name Role Phone Linda Blancas MD Primary Care Provider [phone] Adolfo Carreno MD Unavailable [phone] Augustina Colin MD PhD Unavailable Unavailable Encounter Details Date Type Department Care Team (Late st Contact Info) Description 10/27/2023 9:15 EDT Phlebotomy Only [facility] ED Center 2 Phlebotomy [address] [place], [place] [address] Trench Pipe Layer, Acc Phlebotomy Malignant neoplasm of right female breast, unspecified [...] Description 04/02/2024 10:30 EDT Appointment [facility] Interventional Radiology Unit [address] [place] [address] [phone] 04/02/2024 15:15 EDT Office Visit [facility] Surgical Oncology - [address] [phone] Adolfo Carreno MD [address] [place] [address] 2 [place] [phone] 04/05/2024 9:30 EDT Telemedicine [facility] - [facility] Palliative Care Services [address] [place] [address] [phone] Chichi Woods MD [address] [place] [phone] 04/11/2024 15:00 EDT Telemedicine [facility] Hematology & Oncology - [address] [phone] Alisson Carreon MD [address] [place] [address] 2 [place] [phone] 04/13/2024 13:30 EDT Appointment [facility] Hematology & Oncology [address] [phone] 04/13/2024 14:00 EDT Appointment [facility] Hematology & Oncology - [address] [phone] 04/16/2024 10:00 EST Telemedicine [facility] - [facility] Palliative Care Services [address] [place] [address] [phone] Chichi Woods MD 111 [facility], [address] [phone] 04/24/2024 9:00 EST Appointment [facility] Radiology CT Outpatient - [address] [phone] 04/24/2024 11:00 EST Appointment [facility] Breast Imaging - [address] [phone] 04/27/2024 12:00 EST Appointment [facility] Hematology & Oncology - [address] [phone] 05/02/2024 15:00 EST Telemedicine [facility] Hematology & Oncology - [address] [phone] Alisson Carreon MD [address] [place] [address], Level [address] [place] [phone] 05/04/2024 10:15 EST Ancillary Procedure [facility] Cardiology [place] [address] [place] [address] 05/04/2024 11:30 EST Appointment [facility] Hematology & Oncology - [address] [address] 05/04/2024 12:00 EST Appointment [facility] Hematology & Oncology - [address] [address] 06/12/2024 13:00 EST Appointment [facility] Radiology CT - [address] [address] documented as of this encounter Procedures Procedure Name Priority Date/Time Associated Diagnosis Comments COMPREHENSIVE METABOLIC PANEL (ONCOLOGY USE ONLY-INC MG) STAT 10/27/2023 9:48 EDT Primary malignant neoplasm of breast with metastasis (HCC-CMS) CA 27.29 STAT 10/27/2023 9:48 EDT Malignant neoplasm of right female breast, unspecified estrogen receptor status, unspecified site of breast (HCC-CMS) COMPLETE BLOOD COUNT AND DIFFERENTIAL STAT 10/27/2023 9:48 EDT Primary malignant neoplasm of breast with metastasis (HCC-CMS) documented in this encounter Results * (ABNORMAL) COMPREHENSIVE METABOLIC PANEL (ONCOLOGY USE ONLY-INC MG) (10/27/2023 9:48 EDT) Sodium 137 136 - 145 mmol/L 10/27/2023 10:16 [facility] Potassium 3.7 3.5 - 5.0 mmol/L 10/27/2023 10:16 [facility] Chloride 109 96 - 110 mmol/L 10/27/2023 10:16 [facility] CO2 Total 23 22 - 32 mmol/L 10/27/2023 10:16 [facility] Glucose 92 70 - 99 mg/dl 10/27/2023 10:16 [facility] BUN 15 10 - 26 mg/dL 10/27/2023 10:16 [facility] Creatinine 0.62 0.52 - 1.04 mg/dL 10/27/2023 10:16 [facility] eGFR 101 >60 mL/min/1.7 3m2 10/27/2023 10:16 [facility] Total Protein 5.8(L) 6.3 - 8.2 g/dL 10/27/2023 10:16 [facility] Albumin 2.9(L) 3.4 - 4.9 g/dL 10/27/2023 10:16 [facility] Alkaline Phosphatase 416(H) 38 - 126 U/L 10/27/2023 10:16 [facility] AST 97(H) 15 - 46 U/L 10/27/2023 10:16 [facility] ALT 60(H) <35 U/L 10/27/2023 10:16 [facility] Bilirubin, Total 1.5(H) <1.4 mg/dL 10/27/19 10:16 [facility] Calcium 8.3(L) 8.5 - 10.5 mg/dL 10/27/2023 10:16 [facility] Magnesium 1.9 1.7 - 2.8 mg/dL 10/27/2023 10:16 [facility] Albumin/Globulin Ratio 1.0 1.0 - 2.5 10/27/2023 10:16 [facility] Anion Gap 5 5 - 14 mmol/L 10/27/2023 10:16 [facility] Blood VENOUS BLOOD / Unknown Venipuncture / Unknown 10/27/2023 9:48 EDT 10/27/2023 9:55 EDT Augustina Colin MD PhD CHEMISTRY & BLOOD GA S ORDERABLES Performing Organization Address City/State/[facility] Co de Phone Number [facility] [address] [place] [address] * (ABNORMAL) COMPLETE BLOOD COUNT AND DIFFERENTIAL (10/27/2023 9:48 EDT) WBC 4.96 4.00 - 12.40 K/cmm 10/27/2023 10:04 [facility] RBC 3.34(L) 3.86 - 5.04 M/cmm 10/27/2023 10:04 [facility] Hemoglobin 10.5(L) 11.6 - 15.2 g/dL 10/27/2023 10:04 [facility] HCT 31.7(L) 34.9 - 44.4 % 10/27/2023 10:04 [facility] MCV 95 81 - 98 fL 10/27/2023 10:04 [facility] MCH 31.4 26.7 - 33.3 pg 10/27/2023 10:04 [facility] MCHC 33.1 32.1 - 35.9 g/dL 10/27/2023 10:04 [facility] RDW-CV 15.8(H) <14.7 % 10/27/2023 10:04 [facility] RDW-SD 54.7(H) <50.4 fl 10/27/2023 10:04 [facility] PLT 116(L) 141 - 377 K/cmm 10/27/2023 10:04 [facility] MPV 10.6 9.5 - 12.7 fL 10/27/2023 10:04 [facility] % Neutrophils 76.0 % 10/27/2023 10:04 [facility] % Lymphocytes 12.7 % 10/27/2023 10:04 [facility] % Monocytes 7.5 % 10/27/2023 10:04 [facility] % Eosinophils 2.6 % 10/27/2023 10:04 [facility] % Basophils 0.8 % 10/27/2023 10:04 [facility] % Immature Grans 0.4 % 10/27/19 10:04 [facility] Absolute Neutrophils 3.77 2.20 - 8.85 K/cmm 10/27/2023 10:04 [facility] Absolute Lymphocytes 0.63(L) 1.09 - 3.30 K/cmm 10/27/2023 10:04 [facility] Absolute Monocytes 0.37 0.10 - 0.80 K/cmm 10/27/2023 10:04 [facility] Absolute Eosinophils 0.13 0.03 - 0.61 K/cmm 10/27/2023 10:04 [facility] ABS Basophils 0.04 0.01 - 0.11 K/cmm 10/27/2023 10:04 EDT [facility] Absolute Immature Grans 0.02 0.00 - 0.06 K/cmm 10/27/2023 10:04 EDT [facility] Type of Differential: Auto 10/27/2023 10:04 EDT [facility] Blood VENOUS BLOOD / Unknown Venipuncture / Unknown 10/27/2023 9:48 EDT 10/27/2023 9:55 EDT Augustina Colin MD PhD PACKAGES & DNA PROBE ORDERABLES Performing Organization Address [facility] Co de Phone Number [facility] [address] [place] [address] * (ABNORMAL) CA 27.29 (10/27/2023 9:48 EDT) CA 27.29 1,195.8(H ) <38.0 U/mL 10/28/2023 8:44 EDT [facility] Comment: NOTE: Serum CA 27.29 concentration should not be interpreted as absolute evidence for the presence or absence of malignant disease. Assayed on Siemens ADVIA Centaur XPT using chemiluminescent technology. ??Values obtained by using different assay methods cannot be used interchangeably. Blood VENOUS BLOOD / Unknown Venipuncture / Unknown 10/27/2023 9:48 EDT 10/27/2023 9:55 EDT Augustina Colin MD PhD CHEMISTRY & BLOOD GA S ORDERABLES [facility] [address] [place] [address] documented in this encounter Visit Diagnoses Diagnosis Malignant neoplasm of right female breast, unspecified estrogen receptor status, unspecified site of breast (HCC-CMS) Primary malignant neoplasm of breast with metastasis (HCC-CMS) documented in this encounter Care Teams Spinning Machine Tender Relationship Specialty Start Date End Date Linda Blancas MD [facility] [address] [place] [address] PCP - General 01/06/11 Adolfo Carreno MD [address] [place] [phone] General Surgery 04/26/19 Augustina Colin MD PhD [address] [place] [phone] Medical Oncology 04/26/19 documented as of this encounter
--- OUTSIDE RECORDS SUMMARY | 2024-03-20 14:40 | XMS_ITS | Encounter Summary ---
Author Organization [facility] Address [address] [place] [address] Care Team Providers Care Customer Logistics Manager Name Role Phone Linda Blancas MD Primary Care Provider [phone] Adolfo Carreno MD Unavailable [phone] Augustina Colin MD PhD Unavailable Unavailable Reason for Visit * Reason Onset Date Comments Follow-up 11/04/2023 Encounter Details Date Type Department Care Team (Late st Contact Info) Description 11/04/2023 Telephone [facility] Hematology & Oncology - [address] [place] [address] [place], [place] [phone] Zulma Acevedo RN Follow-up Social History Tobacco [...] Encounter - Zulma Acevedo RN - 11/04/2023 1130 EDT Call attempted to both Sendy and spouse Nitish. No answer, left Vms. Per provider, request to check up on patient as her most recent labs from 11/02 show an increased bilirubin. VerbalizeItt message sent with information on what to look out for and to go to the ER if she notices any yellowing of the skin or eyes. Pt also updated on the plan r/t her recent L arm swelling. PT referral placed on 11/02 to lymphedema clinic, scheduling made aware of referral placement. Pt also updated to continue with bowelregimen and provided with additional suggestions to try if needed. Pt aware to reach out with any additional questions or concerns. documented in this encounter Plan of Treatment Upcoming Encounters Date Type Department Care Team (Late st Contact Info) Description 04/02/2024 10:30 EDT Appointment [facility] Interventional Radiology Unit [address] [place], [place] [id number] 04/02/2024 15:15 EDT Office Visit [facility] Surgical Oncology - [facility] [address] [place], [place] 8[address] Adolfo Carreno MD 111 [facility], Level [address] [place] [phone] 04/05/2024 9:30 EDT Telemedicine [facility] - [facility] Palliative Care Services [address] [place], [place] [address] Chichi Woods MD 111 [facility], [address] [place] [phone] 04/11/2024 15:00 EDT Telemedicine [facility] Hematology & Oncology - [address] [phone] Alisson Carreon MD [address] [place] [address] 2 [place] [phone] 04/13/2024 13:30 EDT Appointment [facility] Hematology & Oncology [address] [phone] 04/13/2024 14:00 EDT Appointment [facility] Hematology & Oncology [address] [phone] 04/16/2024 10:00 EST Telemedicine [facility] - [facility] Palliative Care Services [address] [place] [address] [phone] Chichi Woods MD [address] [place] [address] [address] [place] [phone] 04/24/2024 9:00 EST Appointment [facility] Radiology CT Outpatient - [address] [phone] 04/24/2024 11:00 EST Appointment [facility] Breast Imaging - [address] [phone] 04/27/2024 12:00 EST Appointment [facility] Hematology & Oncology - [address] [phone] 05/02/2024 15:00 EST Telemedicine [facility] Hematology & Oncology - [address] [phone] Alisson Carreon MD [address] [place] [address] 2 [place] [phone] 05/04/2024 10:15 EST Ancillary Procedure [facility] Cardiology - [address] [place] [address] 05/04/2024 11:30 EST Appointment [facility] Hematology & Oncology [address] [phone] 05/04/2024 12:00 EST Appointment [facility] Hematology & Oncology [address] [phone] 06/12/2024 13:00 EST Appointment [facility] Radiology CT [address] [phone] documented as of this encounter Visit Diagnoses Not on filedocumented in this encounter Care Teams Customer Logistics Manager Relationship Specialty Start Date End Date Linda Blancas MD [facility] [address] [place] [address] PCP - General 01/06/11 Adolfo Carreno MD [address] [place] [phone] General Surgery 04/26/19 Augustina Colin MD PhD [address] [place] [phone] Medical Oncology 04/26/19 documented as of this encounter
--- OUTSIDE RECORDS SUMMARY | 2024-03-20 14:40 | XMS_ITS | Encounter Summary ---
Author Organization [facility] Address [address] [place] [address] Care Team Providers Care Systems Auditor Name Role Phone Linda Blancas MD Primary Care Provider [phone] Adolfo Carreno MD Unavailable [phone] Augustina Colin MD PhD Unavailable Unavailable Reason for Visit * Reason Comments Abdominal Pain Reports abd pain and swelling starting 10 days ago; reports 10 lb wt gain. Also reports left sided arm/pain and left leg swelling. + SOB, worse with exertion. No fever. Has right sided chest port. Hx of stage 4 right sided breast CA. Encounter Details Date Type Department Care Team (Late st Contact Info) Description 11/08/2023 20:12 EDT - 11/09/2023 4:22 EDT Emergency [facility] Emergency Department - [address] [id number] Arturo Matute MD [address] [place] [phone] Jack Redmond MD [address] [place] [phone] Malignant ascites (Primary Dx); Acute deep vein thrombosis (DVT) of left upper extremity, unspecified vein (HCC-CMS) Discharge Disposition: Home or Self Care [...] Sign Reading Time Taken Comments Blood Pressure 122/69 11/09/2023 0421 EDT Pulse 94 11/08/2023 174 EDT Temperature 36.7 ??C (98.1 ??F) 11/09/2023 042 EDT Respiratory Rate 17 11/09/2023 042 EDT Oxygen Saturation 99% 11/09/2023 042 EDT Inhaled Oxygen Concentration - - Weight 63 kg (139 lb) 11/08/2023 174 EDT Height 154.9 cm (5' 1) 11/08/2023 174 EDT Body Mass Index 26.26 11/08/2023 1744 EDT documented in this encounter Functional Status [...] this encounter Discharge Instructions * Discharge Instructions* Jack Redmond MD - 11/09/2023 2:11 EDT Your symptoms of abdominal bloating and discomfort were clearly related to your ascites which has never been sampled or drained. As such we decided to do that tonight independent of other testing. This went reasonably well, but we were only able to obtain 1800 cc. This was sent for analysis, but given this has been present for some time I do not think that you have an acute infection or any reason to stay in the hospital for this. Dr. Colin may choose to add cytology tomorrow, but for tonight we only checked your cell counts and sent a culture. Based on worsening swelling in the left arm (even with a negative ultrasound on ) we performed an ultrasound of this left upper extremity-you actually do have clot now which is a bit of a surprising development. This means you need to be on a blood thinner (apixaban). We gave you 10 mg tonight at approximately 2 AM. Your next dose can be tomorrow in the afternoon (this is twice a day) Obviously being on a blood thinner means that you are more likely to bleed, but based on the need to treat this clot in your arm and in your lungs, we needed to start something tonight. Please see the return precautions and symptoms to watch for below. Also it is important to no longer take Advil, ibuprofen, Tylenol, aspirin, Motrin, Aleve or any other nonsteroidal anti-inflammatory while you are on this medication. In general, it is safe to start patients with metastatic cancer on this medication, but if Dr. Colin would like to switch medications she will let you know tomorrow or the next day. Nolan is going to follow-up this study, and decide on disposition--- Apixaban (Eliquis) dosing: First Week: 10 mg twice a day Maintenance: 5 mg twice daily until completion of therapy. Any missed dose of Apixaban will increase the risk of progression/worsening of your blood clot. Before you start any new medication, the prescriber needs to check for interactions with the Apixaban. Avoid naproxen (Alleve), ibuprofen (Advil, Motrin), aspirin based products while on apixaban (Unless explicitly instructed to take them by a [employer] Porcelain Enameler.). Bleeding Risk: We have discussed that Apixaban is necessary for treatment of your clot, but is also associated with a small increase in risk of bleeding, including dangerous or life-threatening bleeding. Any hard hit to the head requires evaluation in the ER. Return to the ER for other, obvious bleeding (vomiting blood, visible blood in stool, cuts that won't stop bleeding, even with pressure.) Any surgical procedure, or invasive procedure, requires extreme caution when undertaken while on Apixaban. All Health Care Providers need to be made aware that you are on Apixaban. Subtle signs and symptoms bleeding (which is more likely when on a blood thinner): Unexplained lightheadness, passing out. Unexplained fatigue. Unexplained or intense upper abdominal pain, even similar to acid reflux. Shortness of breath (beyond baseline, and/or with exertion). Headache, especially severe or increasing in intensity (or associated with trauma.) Black or otherwise abnormal stool. Nontraumatic pain over the flanks. Discoloration/darkening of urine. Unusually heavy or severe menstrual bleeding. documented in this encounter Medications at Time [...] by mouth daily. 90 Tab 3 08/16/2012 dexAMETHasone (DECADRON) 4 mg tabletIndications:Prim hugo malignant [...] Tablets by mouth as needed. 12/07/2023 mv-mn/C/glutamin/lysin /[id number] ([place], ASCORBATE SODIUM, ORAL) Take by mouth [...] 08/16/2012 12/14/2023 documented as of this encounter Ordered Prescriptions Prescription Sig Dispensed Refills Start Date End Da te apixaban (ELIQUIS) 5 mg tablet Take 2 Tablets by mouth 2 times daily for 7 days, THEN 1 Tablet 2 times daily for 23 days. 74 Tablet 11/09/2023 11/09/2023 documented in this encounter Discharge Disposition Disposition Code Departure Means Destination Comment s Home or Self Prison documented in this encounter ED Notes * Joy Krishnan RN - 11/09/2023 7042 EDT Pt acknowledged discharge instructions. A/Ox3 unlaboured breathing. VSS. Ambulated off unit with . * Arturo Matute MD - 11/08/2023 9333 EDTAssociated Order(s): Paracentesis Emergency Department Visit This documentation is recorded by Heather Schaffer acting as Scribe under the direction and presence of Arturo Matute MD. Arturo Matute MD: I personally performed the services recorded by the scribe in my presence. I confirm the scribe's documentation has been reviewed by me to accurately and completely record my work, treatment, procedures, and medical decision making. Medical Decision Making This patient presents with well-established widely metastatic breast cancer, with evidence on previous imaging of ascites (but no history of paracentesis for reasons that are unclear, but presumably would include the high likelihood that this is malignant) but with increasing abdominal girth that is quite bothersome and is impacting her breathing. There is also concern (of hers and her primary care providers and oncologist) of increased left legswelling, increased left upper extremity swelling-she interestingly had a negative left upper extremity ultrasound last . We have talked a bit about how to strategize this: I have definitely offered to perform paracentesis, will send for cell count culture, and will ask her to talk to her primary care provider about cytology. I believe this is probably indicated, but based on her widely metastatic disease, this may benecessary. We have started with ultrasound of the left upper and left lower extremity, and if these demonstrate clot then we will perform CT chest pulmonary angiogram, CT abdomen pelvis. Based on the duration of time it took to obtain an ultrasound read, I did perform paracentesis, which unfortunately left some residual ascites-I only was able to obtain about 1800 cc, but she feels quite a bit better. I did speak to her about the positive upper extremity DVT, and based on this that we would pursue aCT chest for pulmonary embolism. At the time that the CT was being performed, I did signout to Dr. Redmond. The plan at this time is that she clearly requires anticoagulation (established upper extremity DVT, and high risk for propagation, even if the CT is negative). Regardless, given she has no hypoxia, and given she has good support, if she has a low clot burden in the lungs or no clot was, she would be able to go home. I wonder follow-up closely with her primary care provider and oncologist, and we did discuss explicit return precautions. Relevant Data as of 11/11/23 1756 Tue November 08, 2023 2208 CTPE, CTAP, starting her on eliquis [Abdominal and left arm swelling..new clot in LUE metastatic breast cancer s/p reconstruction, stage 4, new port, new infusion chemo 6 ago] - sent in by oncology for swelling. No clot on ultrasound on but has clot new. Abdominal fullness. - tapped her, took off 1800 cc. - if the CT shows PE consider admission, if a few subsegmentals consider sending her home. [WF] TueNovember 09, 2023 0355 Bilateral subsegmental PEs, discussed options with family elected for discharge. Will discharge on Eliquis, will also provide oxycodone starter pack as patient was instructed to no longer take NSAIDs and will provide trial of Reglan if patient has recurrent headaches. [WF] Relevant Data User Index [WF] Jack Redmond MD Medical Decision Making Problems Addressed: Acute deep vein thrombosis (DVT) of left upper extremity, unspecified vein (HCC- CMS): complicated acute illness or injury Malignant ascites: complicated acute illness or injury Amount and/or Complexity of Data Reviewed Labs: ordered. Radiology: ordered. Risk Prescription drug management. Final diagnoses: Malignant ascites Acute deep vein thrombosis (DVT) of left upper extremity, unspecified vein (HCC-CMS) Disposition: Discharged Chief complaint: Abdominal pain HPI Sendy Pleitez is a 63 y.o. female with a history of metastatic breast cancer s/p reconstruction, s/p recent port placement (11/03/23), and recent [facility] presentation (10/14/23) for bowel obstruction r/o, found to have ascites who presents to the ED from chemo transfusion for imaging. Patient reports she has gained 10lbs of weight in 10 days. She says her left arm is swollen but she had a negative extremity US. Patient endorses shortness of breath in the setting of abdominal distension. She says she is on new chemotherapy and was supposed to get their 3rd dose today. History was provided by: Patient Records reviewed include:Heme onc progress note from today- Provider requesting Stat abd US to w/u for ascites, pt had increase of 10lbs over weekend. Per radiology, pt must be NPO for 6 hours prior to US. Provider decided ED would be best place for patient. Pt to head down to ED after PV+ infusiontreatment. ED triage called to give report, aware to expect pt after infusion. Patient's pertinent PMH, FH, SH were reviewed and edited as necessary. Nursing notes reviewed. A medical screening exam was performed. Physical Exam BP (!) 142/74 (BP Cuff Location: Left arm, BP Patient Position: Sitting) Pulse 94 Temp 36.5 ??C(97.7 ??F) (Temporal) Resp 18 Ht 154.9 cm (61) Wt 63 kg (139 lb) SpO2 100% BMI 26.26 kg/m?? Physical Exam Very bright affect, very energetic Borderline tachycardia, afebrile No hypoxia Neck veins are flat No increased work of breathing or cough Left upper extremity is asymmetric with the right, larger. 2+ radial pulse present bilaterally. Strong and symmetric. No palpable cords. Left leg trace pitting edema--this is also asymmetric. Abdomen is firm, mildly distended-patient is typically very slender, and strongly suspect ascites. Not focally tender. Procedures Paracentesis Performed by: Arturo Matute MD Authorized by: Arturo Matute MD Consent: Consent obtained: Verbal Consent given by: Patient Risks discussed: Bleeding, bowel perforation, infection and pain Alternatives discussed: No treatment [place] protocol: Procedure explained and questions answered to patient or proxy's satisfaction: yes Patient identity confirmed: Verbally with patient Pre-procedure details: Procedure purpose: Therapeutic Anesthesia: Anesthesia method: Topical application Procedure details: Needle gauge: 8 fr. Puncture site: R lower quadrant Fluid removed amount: 1800 Fluid appearance: Clear and yellow Dressing: Adhesive bandage Post-procedure details: Procedure completion: Tolerated Comments: This was performed with landmark and site guidance with ultrasound, confirmed in position of head of bed elevated. Somewhat positional catheter and drainage, but with repositioning, I was able to getout almost 2000 cc (approximately 1800 cc), and her abdomen is considerably improved. No leakage at the site. * Jack Redmond MD - 11/08/2023 1738 EDT Relevant Data as of 11/09/23 0759 TueNovember 08, 20238 CTPE, CTAP, starting her on eliquis [Abdominal and left arm swelling..new clot in LUE metastatic breast cancer s/p reconstruction, stage 4, new port, new infusion chemo 6 ago] - sent in by oncology for swelling. No clot on ultrasound on but has clot new. Abdominal fullness. - tapped her, took off 1800 cc. - if the CT shows PE consider admission, if a few subsegmentals consider sending her home. [WF] TueNovember 09, 2023 0355 Bilateral subsegmental PEs, discussed options with family elected for discharge. Will discharge on Eliquis, will also provide oxycodone starter pack as patient was instructed to no longer take NSAIDs and will provide trial of Reglan if patient has recurrent headaches. [WF] Relevant Data User Index [WF] Jack Redmond MD documented in this encounter Plan of Treatment Upcoming Encounters Date Type Department Care Team (Late st Contact Info) Description 04/02/2024 10:30 EDT Appointment [facility] Interventional Radiology Unit [address], [place] [phone] 04/02/2024 15:15 EDT Office Visit [facility] Surgical Oncology - [address] [phone] Adolfo Carreno MD 111 [facility], [address] [place] [phone] 04/05/2024 9:30 EDT Telemedicine [facility] - [facility] Palliative Care Services [address], [place] [phone] Chichi Woods MD 111 [facility], [address] [phone] 04/11/2024 15:00 EDT Telemedicine [email or web address]] Hematology & Oncology - [facility] [address], [place] [address] Alisson Carreon MD [address] [place] [address], [facility] [address] [place] [phone] 04/13/2024 13:30 EDT Appointment [email or web address]] Hematology & Oncology - [address] [phone] 04/13/2024 14:00 EDT Appointment [facility] [email or web address]] Hematology & Oncology - [address] [id number] 04/16/2024 10:00 EST Telemedicine [facility] - [facility] Palliative Care Services [address] [place] [phone] Chichi Woods MD [address] [place] [phone] 04/24/2024 9:00 EST Appointment [facility] Radiology CT Outpatient - [address] [id number] 04/24/2024 11:00 EST Appointment [facility] Breast Imaging - [facility] [address] [phone] 04/27/2024 12:00 EST Appointment [facility] [[email or web address]] Hematology & Oncology - [address] [phone] 05/02/2024 15:00 EST Telemedicine [facility] [[email or web address]] Hematology & Oncology - [address] [phone] Alisson Carreon MD [address] [place] [address], [facility] [address] [place] [phone] 05/04/2024 10:15 EST Ancillary Procedure [facility] Cardiology - [address] [place], [place] [phone] 05/04/2024 11:30 EST Appointment [email or web address]] Hematology & Oncology [address] [id number] 05/04/2024 12:00 EST Appointment [email or web address]] Hematology & Oncology [address] [phone] 06/12/2024 13:00 EST Appointment [facility] Radiology CT - [address] [phone] documented as of this encounter Procedures Procedure Name Priority Date/Time Associated Diagnosis Comments ORDERS - SCANNED 02/01/2024 15:2 6 EDT FLUID CELL COUNT Routine 11/09/2023 2:59 EDT BACTERIAL CULTURE/SMEAR STAT 11/09/2023 2:59 EDT FLUID DIFFERENTIAL Today 11/09/2023 2: 59 EDT FLUID CELL COUNT Routine 11/09/2023 2:[address] ANGIO CHEST PE PROTOCOL STAT 11/09/2023 2:[address] ABDOMEN PELVIS W CONTRAST STAT 11/09/2023 2:50 EDT US LOWER VENOUS DUPLEX (DVT) LEFT STAT 11/09/2023 0:04 EDT US UPPER VENOUS DUPLEX (DVT) LEFT STAT 11/09/2023 0:04 EDT ED PARACENTESIS Routine 11/08/2023 17:38 EDT ED PARACENTESIS Routine 11/08/2023 17:38 EDT documented in this encounter Results * ORDERS - SCANNED (02/01/2024 15:26 EDT) 02/01/2024 15:2 6 EDT Scan 2 [employer] ADMISSION ORDERABLE S * FLUID DIFFERENTIAL (11/09/2023 2:59 EDT) Neutrophils Fluid Relative 8 % 11/09/2023 4:22 EDT [facility] Lymphocytes Fluid Relative 30 % 11/09/2023 4:22 EDT [facility] [place]/Macrophage 53 % 4:22 EDT [facility] Mesothelial Cells Fluid Relative 9 % 11/09/2023 4:22 EDT [facility] Fluid PERITONEAL FLUID / Unknown 11/09/2023 2:59 EDT 11/09/2023 3:05 EDT Arturo Matute MD [facility] [place] ECT ORDERABLES Performing Organization Address [facility] Co de Phone Number [facility] [address] [place] [address] * FLUID CELL COUNT (11/09/2023 2:59 EDT) RBC, Fluid <10,000 /cmm 11/09/2023 3:35 EDT [facility] Nucleated Cells, fluid 186 /cmm 11/09/2023 3:35 EDT [facility] Comment, fluid Yellow Slightly cloudy 11/09/2023 3:35 EDT [facility] Fluid PERITONEAL FLUID / Unknown 11/09/2023 2:59 EDT 11/09/2023 3:05 EDT Arturo Matute MD HEMATOLOGY & PF4 ORDERABLES Performing Organization Address [facility]/ZIP Co de Phone Number [facility] [address] [place] [address] * (ABNORMAL) BACTERIAL CULTURE/SMEAR (11/09/2023 2:59 EDT) Organism ID No Growth 11/14/2023 7:25 EDT [facility] Smear Neutrophils Present(A) 11/14/2023 7:25 EDT [facility] Smear No bacteria seen(A) 11/14/2023 7:25 EDT [facility] Fluid SPECIMEN FROM PERITONEUM / Unknown 11/09/2023 2:59 EDT 11/09/2023 3:05 EDT Arturo Matute MD MICROBIOLOGY - [employer] ORDERABLES [facility] [address] [place] [address] * CT ABDOMEN PELVIS W CONTRAST (11/09/2023 2:50 EDT) Anatomical Region Laterality Modality Body, Abdomen, Pelvis, Abdomen and Pelvis Computed Tomography 11/09/2023 10:5 3 EDT Impressions 11/09/2023 10:53 EDT 1. ??No acute inflammatory changes in the abdomen or pelvis. 2. ??Extensive hepatic metastatic disease is not significantly changed when accounting for differences in technique. There are stigmata of portal hypertension, including moderate volume ascites. 3. ??Unchanged right iliac lytic lesion. 4. ??Cholelithiasis. I have personally reviewed the images and the above interpretation and agree with the findings. [id number] Narrative 11/09/2023 10:[address] ABDOMEN PELVIS W CONTRAST ??11/09/2023 2:39 AM Signs and Symptoms/Comments: Abdominal distention, metastatic cancer; Technique: CT of the abdomen and pelvis was performed following the administration of intravenous contrast. This CT used either dose modulation and/or iterative reconstruction techniques to lower radiation dose. Comparison: CT abdomen pelvis most recently 10/14/2023 Findings: Lower chest: Dictated separately. There are PEs as detailed on separate dictation. Liver: Hepatic metastatic disease redemonstrated. For example: Right lobe lesion on axial 89 measuring 4.2 cm long axis, previously 4.6 cm. Left lobe lesion on axial 81 measuring 2.5 cm long axis, previously 2.4 cm. Right lobe lesion on axial 61 measuring 2.8 cm long axis, previously 2.6 cm. Gallbladder: Cholelithiasis. Bile ducts: No ductal dilation. Spleen: Heterogeneous attenuation related to perfusion. Spleen is enlarged. No suspicious lesion. Pancreas: No suspicious lesion or ductal dilation. Adrenal glands: No suspicious lesion. Kidneys, ureters, bladder: Symmetric enhancement. No suspicious renal lesion. Small right renal cyst. No hydronephrosis or hydroureter. Contrast in the urinary bladder. Reproductive organs: Calcified fibroid. No adnexal mass. Bowel: No obstruction or acute formation. Portal colopathy involving the cecum. Portal gastropathy and enteropathy. Peritoneal cavity: Moderate volume of simple attenuation free fluid in the abdomen. No organized collection or free air. Lymph nodes: Multiple prominent mesenteric lymph nodes, similar to prior. Vascular: Calcifications of the nonaneurysmal abdominal aorta. Portal system is patent. Abdominal wall: Mild body wall edema. No bowel-containing hernia. Musculoskeletal: Posterior L3-S1 fusion hardware. Multilevel degenerative disc disease. Lytic lesion in the right iliac bone is unchanged. Degenerative changes in the spine. 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 Resulting Agency Comment [id number] Procedure Note Richard Antonio MD - 11/09/2023 CT ABDOMEN PELVIS W CONTRAST 11/09/2023 2:39 AM Signs and Symptoms/Comments: Abdominal distention, metastatic cancer; Technique: CT of the abdomen and pelvis was performed following theadministration of intravenous contrast. This CT used either dose modulation and/or iterative reconstructiontechniques to lower radiation dose. Comparison: CT abdomen pelvis most recently 10/14/2023 Findings: Lower chest: Dictated separately. There are PEs as detailed on separatedictation. Liver: Hepatic metastatic disease redemonstrated. For example: Right lobe lesion on axial 89 measuring 4.2 cm long axis, previously 4.6cm. Left lobe lesion on axial 81 measuring 2.5 cm long axis, previously 2.4cm. Right lobe lesion on axial 61 measuring 2.8 cm long axis, previously 2.6cm. Gallbladder: Cholelithiasis. Bile ducts: No ductal dilation. Spleen: Heterogeneous attenuation related to perfusion. Spleen isenlarged. No suspicious lesion. Pancreas: No suspicious lesion or ductal dilation. Adrenal glands: No suspicious lesion. Kidneys, ureters, bladder: Symmetric enhancement. No suspicious renallesion. Small right renal cyst. No hydronephrosis or hydroureter. Contrastin the urinary bladder. Reproductive organs: Calcified fibroid. No adnexal mass. Bowel: No obstruction or acute formation. Portal colopathy involving thececum. Portal gastropathy and enteropathy. Peritoneal cavity: Moderate volume of simple attenuation free fluid in theabdomen. No organized collection or free air. Lymph nodes: Multiple prominent mesenteric lymph nodes, similar toprior. Vascular: Calcifications of the nonaneurysmal abdominal aorta. Portalsystem is patent. Abdominal wall: Mild body wall edema. No bowel-containing hernia. Musculoskeletal: Posterior L3-S1 fusion hardware. Multilevel degenerativedisc disease. Lytic lesion in the right iliac bone is unchanged.Degenerative changes in the spine. 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 IMPRESSION 1. No acute inflammatory changes in the abdomen or pelvis. 2. Extensive hepatic metastatic disease is not significantly changed whenaccounting for differences in technique. There are stigmata of portalhypertension, including moderate volume ascites. 3. Unchanged right iliac lytic lesion. 4. Cholelithiasis. I have personally reviewed the images and the above interpretation andagree with the findings. [id number] Arturo Matute MD IMG CT ORDERABLES * CT ANGIO CHEST PE PROTOCOL (11/09/2023 2:50 EDT) Anatomical Region Laterality Modality Chest Computed Tomogra phy 11/09/2023 9:22 EDT Impressions 11/09/2023 9:22 EDT 1. ??Acute pulmonary emboli involving bilateral subsegmental branches as above. No evidence of right heart strain. 2. ??Interval enlargement of a left internal mammary lymph node and multiple left axillary and subpectoral lymph nodes, which could be reactive though which may also represent recurrent malignancy. Attention on follow-up is advised. The critical result of acute pulmonary embolism ??was communicated to the ED on 11/09/2023 3:33 AM and findings were repeated back to signify understanding according to our critical results reporting policy. * I have personally reviewed the images and the above interpretation and agree with the findings. [id number] Narrative 11/09/2023 9:[address] ANGIO CHEST PE PROTOCOL ??11/09/2023 2:39 AM Clinical History/Comments: Pulmonary embolism (PE) suspected, high prob; -- new clot in the left upper extremity, evaluate for PE, also possible mediastinal mass in the setting of metastatic cancer; Technique: CT angiogram of the chest was performed with the IV administration of contrast material during the pulmonary arterial phase of enhancement. 3D advanced post-processing was performed utilizing a combination of MIP and MPR techniques with physician participation and supervision. This CT used either dose modulation and/ or iterative reconstruction techniques to lower radiation dose. Comparison: CT chest 10/03/2023 Findings: Opacification of the pulmonary vasculature is good. There are bilateral pulmonary emboli, including in right lower lobe subsegmental branches and left lower lobe and lingular subsegmental branches. No evidence of right heart strain. Lower neck: No significant abnormalities. Mediastinum and mariann (non-vascular): No enlarged mediastinal or hilar lymph nodes. ??The esophagus appears normal. Cardiovascular: Right chest port catheter tip in the superior cavoatrial junction. The cardiac chambers and great vessels are normal in size. No pericardial abnormality. Lungs and airways: Stable left upper lobe juxtapleural nodule. No new or enlarging nodules. Multifocal areas of atelectasis/scarring. No concerning focal consolidation. Pleura: No effusion or pneumothorax. Upper abdomen (limited to upper abdomen, not optimized for abdominal imaging): Please refer to the separately dictated report of the concurrently obtained CT scan of the abdomen and pelvis for details of abdominopelvic findings. Chest wall soft tissues: Multiple left subpectoral and axillary lymph nodes have enlarged compared to prior. Enlarging left internal mammary node (401 image 182). Right chest port with internal jugular approach central venous catheter as above. Bones: Healing bilateral rib fractures. No gross evidence of acute fracture or aggressive osseous lesion. Resulting Agency Comment [id number] Procedure Note Lea Price MD - 11/09/2023 CT ANGIO CHEST PE PROTOCOL 11/09/2023 2:39 AM Clinical History/Comments: Pulmonary embolism (PE) suspected, high prob; -- new clot in the leftupper extremity, evaluate for PE, also possible mediastinal mass in thesetting of metastatic cancer; Technique: CT angiogram of the chest was performed with the IV administration ofcontrast material during the pulmonary arterial phase of enhancement. 3Dadvanced post-processing was performed utilizing a combination of MIP andMPR techniques with physician participation and supervision. This CT used either dose modulation and/ or iterative reconstructiontechniques to lower radiation dose. Comparison: CT chest 10/03/2023 Findings: Opacification of the pulmonary vasculature is good. There are bilateralpulmonary emboli, including in right lower lobe subsegmental branches andleft lower lobe and lingular subsegmental branches. No evidence of rightheart strain. Lower neck: No significant abnormalities. Mediastinum and mariann (non-vascular): No enlarged mediastinal or hilarlymph nodes. The esophagus appears normal. Cardiovascular: Right chest port catheter tip in the superior cavoatrialjunction. The cardiac chambers and great vessels are normal in size. Nopericardial abnormality. Lungs and airways: Stable left upper lobe juxtapleural nodule. No new orenlarging nodules. Multifocal areas of atelectasis/scarring. No concerningfocal consolidation. Pleura: No effusion or pneumothorax. Upper abdomen (limited to upper abdomen, not optimized for abdominalimaging): Please refer to the separately dictated report of theconcurrently obtained CT scan of the abdomen and pelvis for details ofabdominopelvic findings. Chest wall soft tissues: Multiple left subpectoral and axillary lymphnodes have enlarged compared to prior. Enlarging left internal mammarynode (401 image 182). Right chest port with internal jugular approachcentral venous catheter as above. Bones: Healing bilateral rib fractures. No gross evidence of acutefracture or aggressive osseous lesion. IMPRESSION 1. Acute pulmonary emboli involving bilateral subsegmental branches asabove. No evidence of right heart strain. 2. Interval enlargement of a left internal mammary lymph node andmultiple left axillary and subpectoral lymph nodes, which could bereactive though which may also represent recurrent malignancy. Attentionon follow-up is advised. The critical result of acute pulmonary embolism was communicated to theED on 11/09/2023 3:33 AM and findings were repeated back to signifyunderstanding according to our critical results reporting policy. * I have personally reviewed the images and the above interpretation andagree with the findings. [id number] Arturo Matute MD IMG CT ORDERABLES * US LOWER VENOUS DUPLEX (DVT) LEFT (11/09/2023 0:04 EDT) Anatomical Region Laterality Modality Vascular Ultrasound 11/09/2023 9:56 EDT Impressions 11/09/2023 9:56 EDT No sonographic evidence of deep venous thrombosis in the left lower extremity. I have personally reviewed the images and the above interpretation and agree with the findings. [id number] Narrative 11/09/2023 9:56 EDT US LOWER VENOUS DUPLEX (DVT) LEFT ??11/08/2023 10:19 PM SIGNS AND SYMPTOMS/COMMENTS: Left calf edema. COMPARISON: CT abdomen/pelvis from 10/14/23 TECHNIQUE: Grayscale, cine, color Doppler, and spectral tracing images were obtained of the deep venous system of the left lower extremity. FINDINGS: Deep veins above the knee: ? External Iliac Vein: Normal compression. Normal color Doppler flow. ? Common Femoral Vein: Normal compression. Normal color Doppler flow. ? Deep Femoral Vein: Normal compression. Normal color Doppler flow. ? Proximal Femoral Vein: Normal compression. Normal color Doppler flow. ? Mid Femoral Vein: Normal compression. Normal color Doppler flow. ? Distal Femoral Vein: Normal compression. Normal color Doppler flow. ? Popliteal Vein: Normal compression. Normal color Doppler flow. ?? Deep veins below the knee: ? Imaged Posterior Tibial Vein(s): Normal compression. Normal color Doppler flow. ? Imaged Peroneal Vein(s): Normal compression. Normal color Doppler flow. ?? Superficial veins: ? Imaged Great Saphenous Vein: Normal compression. Normal color Doppler flow. Spectral Doppler: Normal respiratory phasicity and augmentation. Other: Mild subcutaneous edema is present in the left calf. Resulting Agency Comment [id number] Procedure Note Cassia Madrigal MD - 11/09/2023 US LOWER VENOUS DUPLEX (DVT) LEFT 11/08/2023 10:19 PM SIGNS AND SYMPTOMS/COMMENTS: Left calf edema. COMPARISON: CT abdomen/pelvis from 10/14/23 TECHNIQUE: Grayscale, cine, color Doppler, and spectral tracing imageswere obtained of the deep venous system of the left lower extremity. FINDINGS: Deep veins above the knee: External Iliac Vein: Normal compression. Normal color Doppler flow. Common Femoral Vein: Normal compression. Normal color Doppler flow. Deep Femoral Vein: Normal compression. Normal color Doppler flow. Proximal Femoral Vein: Normal compression. Normal color Doppler flow. Mid Femoral Vein: Normal compression. Normal color Doppler flow. Distal Femoral Vein: Normal compression. Normal color Doppler flow. Popliteal Vein: Normal compression. Normal color Doppler flow. Deep veins below the knee: Imaged Posterior Tibial Vein(s): Normal compression. Normal colorDoppler flow. Imaged Peroneal Vein(s): Normal compression. Normal color Dopplerflow. Superficial veins: Imaged Great Saphenous Vein: Normal compression. Normal color Dopplerflow. Spectral Doppler: Normal respiratory phasicity and augmentation. Other: Mild subcutaneous edema is present in the left calf. IMPRESSION No sonographic evidence of deep venous thrombosis in the left lowerextremity. I have personally reviewed the images and the above interpretation andagree with the findings. [id number] Arturo Mattue MD IMG US VASCULAR O RDERABLES * US UPPER VENOUS DUPLEX (DVT) LEFT (11/09/2023 0:04 EDT) Anatomical Region Laterality Modality Vascular Ultrasound 11/09/2023 9:54 EDT Impressions 11/09/2023 9:54 EDT Occlusive deep venous thrombosis in the left internal jugular, brachiocephalic, and subclavian veins. Nonocclusive deep venous thrombosis is present in the left axillary vein. I have personally reviewed the images and the above interpretation and agree with the findings. [id number] Narrative 11/09/2023 9:54 EDT US UPPER VENOUS DUPLEX (DVT) LEFT ??11/08/2023 10:19 PM SIGNS AND SYMPTOMS/COMMENTS: ??Left lower extremity ultrasound, stage IV cancer, question DVT SWELLING; COMPARISON: CT chest from 05/27/2023. TECHNIQUE: Grayscale, cine, color Doppler, and spectral tracing images were obtained of the deep venous system of the left upper arm. FINDINGS: Deep veins: ? Imaged Internal Jugular Vein: Incompletely compressible. Absent color Doppler flow. ? Brachiocephalic Vein: Absent color Doppler flow. ? Subclavian Vein: Absent color Doppler flow. ? Axillary Vein: Incompletely compressible with absent color Doppler flow. ? Brachial Vein(s): Normal compression. Normal color Doppler flow. ?? Superficial veins: ? Imaged Basilic Vein: Normal compression. Normal color Doppler flow.. ? Imaged Cephalic Vein: Normal compression. Normal color Doppler flow. Spectral Doppler: Normal respiratory phasicity and augmentation. Other: There is subcutaneous edema. Resulting Agency Comment [id number] Procedure Note Cassia Madrigal MD - 11/09/2023 US UPPER VENOUS DUPLEX (DVT) LEFT 11/08/2023 10:19 PM SIGNS AND SYMPTOMS/COMMENTS: Left lower extremity ultrasound, stage IVcancer, question DVT SWELLING; COMPARISON: CT chest from 05/27/2023. TECHNIQUE: Grayscale, cine, color Doppler, and spectral tracing imageswere obtained of the deep venous system of the left upper arm. FINDINGS: Deep veins: Imaged Internal Jugular Vein: Incompletely compressible. Absent colorDoppler flow. Brachiocephalic Vein: Absent color Doppler flow. Subclavian Vein: Absent color Doppler flow. Axillary Vein: Incompletely compressible with absent color Dopplerflow. Brachial Vein(s): Normal compression. Normal color Doppler flow. Superficial veins: Imaged Basilic Vein: Normal compression. Normal color Dopplerflow.. Imaged Cephalic Vein: Normal compression. Normal color Dopplerflow. Spectral Doppler: Normal respiratory phasicity and augmentation. Other: There is subcutaneous edema. IMPRESSION Occlusive deep venous thrombosis in the left internal jugular,brachiocephalic, and subclavian veins. Nonocclusive deep venous thrombosisis present in the left axillary vein. I have personally reviewed the images and the above interpretation andagree with the findings. [id number] Arturo Matute MD IMG US VASCULAR O RDERABLES * ME ABDOM PARACENTESIS DX/THER W/O IMAGING GUIDANCE, HC - ABDOM PARACENTESIS DX/THER W/O IMAGING GUIDANCE (11/08/2023 17:38 EDT) Narrative [facility] EKG - 11/08/2023 17:38 EDT Arturo Matute MD ? 11/11/2023 18:07 Paracentesis Performed by: Arturo Matute MD Authorized by: Arturo Matute MD ?? Consent: ??Consent obtained: ??Verbal ??Consent given by: ??Patient ??Risks discussed: ??Bleeding, bowel perforation, infection and pain ??Alternatives discussed: ??No treatment [place] protocol: ??Procedure explained and questions answered to patient or proxy's satisfaction: yes ?Patient identity confirmed: ??Verbally with patient Pre-procedure details: ??Procedure purpose: ??Therapeutic Anesthesia: ??Anesthesia method: ??Topical application Procedure details: ??Needle gauge: 8 fr. ??Puncture site: ??R lower quadrant ??Fluid removed amount: ??1800 ??Fluid appearance: ??Clear and yellow ??Dressing: ??Adhesive bandage Post-procedure details: ??Procedure completion: ??Tolerated Comments: ?? This was performed with landmark and site guidance with ultrasound, confirmed in position of head of bed elevated. ??Somewhat positional catheter and drainage, but with repositioning, I was able to get out almost 2000 cc (approximately 1800 cc), and her abdomen is considerably improved. No leakage at the site. Arturo Matute MD PROCEDURE/MINOR S URGICAL ORDERABLES [facility] EKG documented in this encounter Visit Diagnoses Diagnosis Malignant ascites- Primary Acute deep vein thrombosis (DVT) of left upper extremity, unspecified vein (HCC-CMS) documented in this encounter Administered Medications Inactive Administered Medications - up to 3 most recent administrations Medication Order MAR Action Action Date Dose Rate Site apixaban (ELIQUIS) tablet 10 mg 10 mg, oral, NOW X1, 1 dose, On Tue11/09/23 at 0215, STAT Given 11/09/2023 2:58 EDT 10 mg iohexoL (OMNIPAQUE 350) solution 100 mL 100 mL, intravenous, Once in imaging, 1 dose, Starting on Tue11/09/23 at 0239, Until Tue11/09/23 at 0622, Routine, Imaging Protocol Orders iohexoL (OMNIPAQUE 350) solution 100 mL 100 mL, intravenous, Once in imaging, 1 dose, Starting on Tue11/09/23 at 0239, Until Tue11/09/23 at 0302, Routine, Imaging Protocol Orders Given 11/09/2023 3:02 EDT 97 mL metoclopramide 10mg starter pack 1 Package, oral, Once (Without Time Specified), 1 dose, Starting on Tue11/09/23 at 0357, Until Tue11/09/23 at 0420, STAT Given 11/09/2023 4:20 EDT 1 Package oxyCODONE 5 mg Tab STARTER PACK 1 Package, oral, NOW X1, 1 dose, On Tue11/09/23 at 0400, STAT Given 11/09/2023 4:20 EDT 1 Package documented in this encounter Active and Recently Administered Medications Times are shown in EDT. Scheduled Medication Order 11/07/2023 11/08/2023 11/09/2023 apixaban (ELIQUIS) tablet 10 mg (COMPLETED) 10 mg, oral, NOW X1, 1 dose, On Tue11/09/23 at 0215, STAT 0258 (Given - Provid er: Landry Ireland RN) iohexoL (OMNIPAQUE 350) solution 100 mL 100 mL, intravenous, Once in imaging, 1 dose, Starting on Tue11/09/23 at 0239, Until Tue11/09/23 at 0622, Routine, Imaging Protocol Orders iohexoL (OMNIPAQUE 350) solution 100 mL (COMPLETED) 100 mL, intravenous, Once in imaging, 1 dose, Starting on Tue11/09/23 at 0239, Until Tue11/09/23 at 0302, Routine, Imaging Protocol Orders 0302 (Given - Provid er: Kate Frias) metoclopramide 10mg starter pack (COMPLETED) 1 Package, oral, Once (Without Time Specified), 1 dose, Starting on Tue11/09/23 at 0357, Until Tue11/09/23 at 0420, STAT 0420 (Given - Provid er: Joy Krishnan RN) oxyCODONE 5 mg Tab STARTER PACK (COMPLETED) 1 Package, oral, NOW X1, 1 dose, On Tue11/09/23 at 0400, STAT 0420 (Given - Provid er: Joy Krishnan RN) documented in this encounter Orders Medications Ordered That Vj ht Not Have Been Administered Count Last Ordered Date First Ordered Date ibuprofen (MOTRIN) tablet 600 mg 1 11/09/19 24 iohexoL (OMNIPAQUE 350) solution 100 mL 1 0 11/09/2023 documented in this encounter Care Teams Systems Auditor Relationship Specialty Start Date End Date Linda Blancas MD [facility] [address] [place] [address] PCP - General 01/06/11 Adolfo Carreno MD [address] [place] [phone] General Surgery 04/26/19 Augustina Colin MD PhD [address] [place] [phone] Medical Oncology 04/26/19 documented as of this encounter
--- OUTSIDE RECORDS SUMMARY | 2024-03-20 14:40 | XMS_ITS | Encounter Summary ---
Author Organization [facility] Address [address] [place] [address] Care Team Providers Care Colored Leather Setter Name Role Phone Linda Blancas MD Primary Care Provider [phone] Adolfo Carreno MD Unavailable [phone] Augustina Colin MD PhD Unavailable Unavailable Reason for Visit * Reason Onset Date Comments Appointment Related 10/26/2023 Encounter Details Date Type Department Care Team (Late st Contact Info) Description 10/26/2023 Telephone [facility] Cancer [facility] Hematology & Oncology - Main [place] [address] [place], [place] [phone] Augustina Colin, PhD Appointment Related Social History Tobacco Use Types [...] * Telephone Encounter - Sandhya Estrada - 10/26/2023 1432 EDT Called patient regarding upcoming appts. NM bone scan scheduled on 11/24 - arrival time @ 1030. Adjusted 11/28 infusion time to accommodate labs & PV w/SE-G. New arrival time @ 0800. Patient confirmed documented in this encounter Plan of Treatment Upcoming Encounters Date Type Department Care Team (Late st Contact Info) Description 04/02/2024 10:30 EDT Appointment [facility] Interventional Radiology Unit [address] [place] [phone] 04/02/2024 15:15 EDT Office Visit [facility] Surgical Oncology - [address] [phone] Adolfo Carreno MD [address] [place] [address], [facility] [address] [place] [phone] 04/05/2024 9:30 EDT Telemedicine [facility] - [facility] Palliative Care Services [address] [place], [place] [phone] Chichi Woods MD [address] [place] [address], [address] [place] [phone] 04/11/2024 15:00 EDT Telemedicine [facility] Hematology & Oncology - [address] [phone] Alisson Carreon MD [address] [place] [address], [address] [place] [phone] 04/13/2024 13:30 EDT Appointment [facility] Hematology & Oncology - [address] [phone] 04/13/2024 14:00 EDT Appointment [facility] Hematology & Oncology - [address] [phone] 04/16/2024 10:00 EST Telemedicine [facility] - [facility] Palliative Care Services [address] [place] [address] [phone] Chichi Woods MD [address] [place] [address], [address] [phone] 04/24/2024 9:00 EST Appointment [facility] Radiology CT Outpatient - [address] [id number] 04/24/2024 11:00 EST Appointment [facility] Breast Imaging - [facility] [address] [phone] 04/27/2024 12:00 EST Appointment [facility] Hematology & Oncology [address] [phone] 05/02/2024 15:00 EST Telemedicine [facility] Hematology & Oncology - [address] [phone] Alisson Carreon MD [address] [place] [address], [address] [place] [phone] 05/04/2024 10:15 EST Ancillary Procedure [facility] Cardiology - [address] [place] [address] 05/04/2024 11:30 EST Appointment [facility] Hematology & Oncology - [address] [phone] 05/04/2024 12:00 EST Appointment [facility] Cancer Center Hematology & Oncology - [address] [phone] 06/12/2024 13:00 EST [facility]ointment [facility] Radiology CT - [address] [phone] documented as of this encounter Visit Diagnoses Not on filedocumented in this encounter Care Teams Colored Leather Setter Relationship Specialty Start Date End Date Linda Blancas MD [facility] [address] [place] [address] PCP - General 01/06/11 Adolfo Carreno MD [address] [place] [address] [address] [place] [phone] General Surgery 04/26/19 Augustina Colin MD PhD [address] [place] [address] [address] [place] [phone] Medical Oncology 04/26/19 documented as of this encounter
--- OUTSIDE RECORDS SUMMARY | 2024-03-20 14:40 | XMS_ITS | Encounter Summary ---
Author Organization [facility] Address [address] [place] [address] Care Team Providers Care Title Curator Name Role Phone Linad Blancas MD Primary Care Provider [phone] Adolfo Carreno MD Unavailable [phone] Augustina Colin MD PhD Unavailable Unavailable Reason for Visit * Reason Onset Date Comments Results 10/28/2023 Encounter Details Date Type Department Care Team (Late st Contact Info) Description 10/28/2023 Telephone [facility] Cancer Center Hematology & Oncology - Main [place] [address] [place], [place] [phone] Augustina Colin, MD PhD Results Social History Tobacco Use Types Packs/Day [...] Telephone Encounter - Zulma Acevedo RN - 10/28/2023 1706 EDT Returned pt call requesting a call back, r/t tumor marker results + GI appointment review. This RN reviewed that the rise in tumor marker is not to be unexpected with the introduction of a new medication, leaving more circulating in the system. I also let her know that her providers were aware thatsamire had her GI appointment and that the notes would be reviewed. Pt reports that she is doing a Miralx regimen cleanse as recommended by GI provider at this time. Pt also reports having her filling fixed on 10/26. Pt feels reassured by this phone call. Providers aware of pt concerns and sent staff message to follow up with patient. Pt aware to look for f/u by provider sometime next week and to reach out to risk control specialist provider or go to ER with any immediate concerns over the weekend. * Telephone Encounter - Hetal Avila - 10/28/2023 1622 [facility]T [facility] Request/Results If known, which test are you inquiring about? CA 27.29 Where was your test performed (which lab)? [facility] Lab What date was the test performed? 10/27/23 Patient is concerned that lab CA 27.29 went from 865 to 1295 and wants to make sure that Dr. Velasco RN have reviewed. Patient also would like to discuss the results of her appointment with the GI provider. Please callback to discuss. Next Appointment: 11/08/2023 Last Office Visit: 10/11/2023 Augustina Colin MD PhD Last Telehealth Encounter: 09/22/2023 Nadeen Blood PA-C Send as Routine Priority to Hem/Onc Nurse Rodger Avila 10/28/2023 16:23 documented in this encounter Plan of Treatment Upcoming Encounters Date Type Department Care Team (Late st Contact Info) Description 04/02/2024 10:30 EDT Appointment [facility] Interventional Radiology Unit [address] [place] [address] 010161 04/02/2024 15:15 EDT Office Visit [facility] Surgical Oncology - [address] [phone] Adolfo Carreno MD [address] [place] [address] 2 [place] [phone] 04/05/2024 9:30 EDT Telemedicine [facility] Palliative Care Services [address] [place] [address] [phone] Chichi Woods MD [address] [place] [address] [phone] 04/11/2024 15:00 EDT Telemedicine [facility] Hematology & Oncology [address] [phone] Alisson Carreon MD [address] [place] [address] 2 [place] [phone] 04/13/2024 13:30 EDT Appointment [facility] Hematology & Oncology [address] [phone] 04/13/2024 14:00 EDT Appointment [facility] Hematology & Oncology [address] [phone] 04/16/2024 10:00 EST Telemedicine [facility] Palliative Care Services [address] [place], [place] 934761 Chichi Woods MD [address] [place] [address], [address] [phone] 04/24/2024 9:00 EST Appointment [facility] Radiology CT Outpatient - [address] [id number] 04/24/2024 11:00 EST Appointment [facility] Breast Imaging - [address] [phone] 04/27/2024 12:00 EST Appointment [facility] Hematology & Oncology - [address] [id number] 05/02/2024 15:00 EST Telemedicine [facility] Hematology & Oncology [address] [phone] Alisson Carreon MD [address] [place] [address], Level [address] [place] [phone] 05/04/2024 10:15 EST Ancillary Procedure [facility] Cardiology - [address] [place], [place] [phone] 05/04/2024 11:30 EST Appointment [facility] Hematology & Oncology - [address] [id number] 05/04/2024 12:00 EST Appointment [facility] Hematology & Oncology - [address] [phone] 06/12/2024 13:00 EST Appointment [facility] Radiology CT - [address] [phone] documented as of this encounter Visit Diagnoses Not on filedocumented in this encounter Care Teams Title Curator Relationship Specialty Start Date End Date Linda Blancas MD [facility] [address] [place], [place] [phone] PCP - General 01/06/11 Adolfo Carreno MD [address] [place] [phone] General Surgery 04/26/19 Augustina Colin MD PhD [address] [place] [phone] Medical Oncology 04/26/19 documented as of this encounter
--- OUTSIDE RECORDS SUMMARY | 2024-03-20 14:40 | XMS_ITS | Encounter Summary ---
Author Organization [facility] Address [address] [place] [address] Care Team Providers Care Statistical Technician Name Role Phone Linda Blancas MD Primary Care Provider [phone] Adolfo Carreno MD Unavailable [phone] Augustina Colin MD PhD Unavailable Unavailable Encounter Details Date Type Department Care Team (Latest Contact Info) Description 11/08/2023 13:09 EDT - 11/08/2023 20:11 EDT Hospital Encounter [facility] Cancer Center Hematology & Oncology - Main [place] [address] [place], [place] [phone] Primary malignant neoplasm of breast with metastasis [...] Tab 3 08/16/2012 apixaban (ELIQUIS) 5 mg tablet Take 2 Tablets by mouth 2 times daily for 7 days, THEN 1 Tablet 2 times daily for 23 days. 74 Tablet 11/09/2023 11/09/2023 dexAMETHasone (DECADRON) 4 mg tabletIndications:Prim hugo malignant [...] Tablets by mouth as needed. 12/07/2023 mv-mn/C/glutamin/lysin /mdnw795 (AIRBORNE, ASCORBATE SODIUM, ORAL) Take by mouth [...] Progress Notes * Stacy Roper RN - 11/08/2023 1330 EDT Sunshine Pleitez presents to EP2 infusion for port access and flush. IVAD in right anterior chest accessed using sterile technique and size 20 3/4 Kessler needle. Brisk blood return noted; flushed without difficulty. NO STERI-STRIPS present upon assessment. Incision appears c/d/I, no opening present. Labs sent as per order. Port remained accessed for infusion scheduled for today . Declined EMLA order at this time. Swelling visible in LUE, mild BLE and abdomen firm and extended. SOB reported by Sendy. Dr Colin notified. I was supervised by Dr. Easley who was present and immediately available in the office suite. STACY ROPER RN 11/08/2023 documented in this encounter Miscellaneous Notes * Addendum Note - Stacy Roper RN - 11/08/2023 1330 EDTEncounter addended by: Stacy Roper RN on: 11/08/2023 13:51 Actions taken: Order list changed, Diagnosis association updated documented in this encounter Plan of Treatment Upcoming Encounters Date Type Department Care Team (Late st Contact Info) Description 04/02/2024 10:30 EDT Appointment [facility] Interventional Radiology Unit [address] [place] [address] 04/02/2024 15:15 EDT Office Visit [facility] Surgical Oncology - [address] [phone] Adolfo Carreno MD [address] [place] [address] [phone] 04/05/2024 9:30 EDT Telemedicine [facility] Palliative Care Services [address] [place] [address] [phone] Chichi Woods MD [address] [place] [address] [phone] 04/11/2024 15:00 EDT Telemedicine [facility] Hematology & Oncology - [address] [phone] Alisson Carreon MD [address] [place] [address] [phone] 04/13/2024 13:30 EDT Appointment [facility] Hematology & Oncology - [address] [phone] 04/13/2024 14:00 EDT Appointment [facility] Hematology & Oncology - [address] [address] 04/16/2024 10:00 EST Telemedicine [facility] Palliative Care Services [address] [place] [address] [phone] Chichi Woods MD [address] [place] [address] [phone] 04/24/2024 9:00 EST Appointment [facility] Radiology CT Outpatient - [address] [address] 04/24/2024 11:00 EST Appointment [facility] Breast Imaging - [address] [place] [address] 04/27/2024 12:00 EST Appointment [facility] Hematology & Oncology - [address] [phone] 05/02/2024 15:00 EST Telemedicine [facility] Hematology & Oncology - [address] 829211 Alisson Carreon MD [address] [place] [address], Level 2 [place] [phone] 05/04/2024 10:15 EST Ancillary Procedure [facility] Cardiology [place] [place] [address] 05/04/2024 11:30 EST Appointment [facility] Hematology & Oncology - [address] [phone] 05/04/2024 12:00 EST Appointment [facility] Hematology & Oncology [address] [id number] 06/12/2024 13:00 EST Appointment [facility] Radiology CT - [address] [phone] documented as of this encounter Procedures Procedure Name Priority Date/Time Associated Diagnosis Comments COMPREHENSIVE METABOLIC PANEL (ONCOLOGY USE ONLY-INC MG) STAT 11/08/2023 13:13 EDT Primary malignant neoplasm of breast with metastasis (HCC-CMS) CA 27.29 Add-On 11/08/2023 13:13 EDT Primary malignant neoplasm of breast with metastasis (HCC-CMS) COMPLETE BLOOD COUNT AND DIFFERENTIAL STAT 11/08/2023 13:13 EDT Primary malignant neoplasm of breast with metastasis (HCC-CMS) documented in this encounter Results * (ABNORMAL) CA 27.29 (11/08/2023 13:13 EDT) CA 27.29 1,184.9(H ) <38.0 U/mL 11/09/2023 12:19 EDT [facility] Comment: NOTE: Serum CA 27.29 concentration should not be interpreted as absolute evidence for the presence or absence of malignant disease. Assayed on Siemens ADVIA Bettymovilaur XPT using chemiluminescent technology. ??Values obtained by using different assay methods cannot be used interchangeably. Blood BLOOD SAMPLE TAKEN FROM CENTRAL LINE / Unknown Port / Unknown 11/08/2023 13:13 EDT 11/08/2023 13:37 EDT Augustina Colin MD PhD CHEMISTRY & BLOOD GA S ORDERABLES [facility] [address] [place] [address] * (ABNORMAL) COMPREHENSIVE METABOLIC PANEL (ONCOLOGY USE ONLY-INC MG) (11/08/2023 13:13 EDT) Sodium 137 136 - 145 mmol/L 11/08/2023 13:58 [facility] Potassium 4.4 3.5 - 5.0 mmol/L 11/08/2023 13:58 [facility] Chloride 107 96 - 110 mmol/L 11/08/2023 13:58 [facility] CO2 Total 21(L) 22 - 32 mmol/L 11/08/2023 13:58 [facility] Glucose 145(H) 70 - 99 mg/dl 11/08/2023 13:58 [facility] BUN 17 10 - 26 mg/dL 11/08/2023 13:58 [facility] Creatinine 0.58 0.52 - 1.04 mg/dL 11/08/2023 13:58 [facility] eGFR 102 >60 mL/min/1.7 3m2 11/08/2023 13:58 [facility] Total Protein 5.9(L) 6.3 - 8.2 g/dL 11/08/2023 13:58 [facility] Albumin 2.7(L) 3.4 - 4.9 g/dL 11/08/2023 13:58 [facility] Alkaline Phosphatase 437(H) 38 - 126 U/L 11/08/2023 13:58 [facility] AST 79(H) 15 - 46 U/L 11/08/2023 13:58 [facility] ALT 39(H) <35 U/L 11/08/2023 13:58 [facility] Bilirubin, Total 1.5(H) <1.4 mg/dL 11/08/19 13:58 [facility] Calcium 8.4(L) 8.5 - 10.5 mg/dL 11/08/2023 13:58 [facility] Magnesium 2.1 1.7 - 2.8 mg/dL 11/08/2023 13:58 [facility] Albumin/Globulin Ratio 0.8(L) 1.0 - 2.5 11/08/2023 13:58 [facility] Anion Gap 9 5 - 14 mmol/L 11/08/2023 13:58 [facility] Blood BLOOD SAMPLE TAKEN FROM CENTRAL LINE / Unknown Port / Unknown 11/08/2023 13:13 EDT 11/08/2023 13:37 EDT Augustina Colin MD PhD CHEMISTRY & BLOOD GA S ORDERABLES [facility] [address] [place] [address] * (ABNORMAL) COMPLETE BLOOD COUNT AND DIFFERENTIAL (11/08/2023 13:13 EDT) WBC 6.30 4.00 - 12.40 K/cmm 11/08/2023 13:48 T [facility] RBC 3.46(L) 3.86 - 5.04 M/cmm 11/08/2023 13:48 [facility] Hemoglobin 10.9(L) 11.6 - 15.2 g/dL 11/08/2023 13:48 [facility] HCT 33.4(L) 34.9 - 44.4 % 11/08/2023 13:48 [facility] MCV 97 81 - 98 fL 11/08/2023 13:48 [facility] MCH 31.5 26.7 - 33.3 pg 11/08/2023 13:48 [facility] MCHC 32.6 32.1 - 35.9 g/dL 11/08/2023 13:48 [facility] RDW-CV 19.9(H) <14.7 % 11/08/2023 13:48 [facility] RDW-SD 68.3(H) <50.4 fl 11/08/2023 13:48 [facility] PLT 288 141 - 377 K/[facility] 11/08/2023 13:48 [facility] MPV 10.0 9.5 - 12.7 fL 11/08/2023 13:48 [facility] % Neutrophils 62.3 % 11/08/2023 13:48 [facility] % Lymphocytes 11.7 % 11/08/2023 13:48 [facility] % Monocytes 23.2 % 11/08/2023 13:48 [facility] % Eosinophils 1.0 % 11/08/2023 13:48 [facility] % Basophils 1.0 % 11/08/2023 13:48 [facility] % Immature Grans 0.8 % 11/08/19 13:48 [facility] Absolute Neutrophils 3.93 2.20 - 8.85 K/cmm 11/08/2023 13:48 [facility] Absolute Lymphocytes 0.74(L) 1.09 - 3.30 K/cmm 11/08/2023 13:48 [facility] Absolute Monocytes 1.46(H) 0.10 - 0.80 K/cm 11/08/2023 13:48 EDT [facility] Absolute Eosinophils 0.06 0.03 - 0.61 K/cm 11/08/2023 13:48 EDT [facility] ABS Basophils 0.06 0.01 - 0.11 K[facility] 11/08/2023 13:48 EDT [facility] Absolute Immature Grans 0.05 0.00 - 0.06 K[facility] 11/08/2023 13:48 EDT [facility] Type of Differential: Auto 11/08/2023 13:48 EDT [facility] Blood BLOOD SAMPLE TAKEN FROM CENTRAL LINE / Unknown Port / Unknown 11/08/2023 13:13 EDT 11/08/2023 13:37 EDT Augustina Colin MD PhD PACKAGES & DNA PROBE ORDERABLES Performing Organization Address City/State/[facility] Co de Phone Number [facility] [address] [place] [phone] documented in this encounter Visit Diagnoses Diagnosis Primary malignant neoplasm of breast with metastasis (HCC-CMS) documented in this encounter Care Teams Statistical Technician Relationship Specialty Start Date End Date Linda Blancas MD [address] [place] [address] 30 [place] [address] PCP - General 01/06/11 Adolfo Carreno MD [address] [place] [phone] General Surgery 04/26/19 Augustina Colin MD PhD [address] [place] [phone] Medical Oncology 04/26/19 documented as of this encounter
--- OUTSIDE RECORDS SUMMARY | 2024-03-20 14:40 | XMS_ITS | Encounter Summary ---
Author Organization [facility] Address [address] [place] [address] Care Team Providers Care Bus Analyst Name Role Phone Linda Blancas MD Primary Care Provider [phone] Adolfo Carreno MD Unavailable [phone] Augustina Colin MD PhD Unavailable Unavailable Reason for Visit * Reason Onset Date Comments Follow-up 10/25/2023 Encounter Details Date Type Department Care Team (Late st Contact Info) Description 10/25/2023 Telephone [facility] Cancer Center Hematology & Oncology - Main [place] [address] [place], [place] [phone] Zulma Acevedo RN Follow-up Social History Tobacco [...] Telephone Encounter - Zulma Acevedo RN - 10/27/2023 1349 EDT Pt labs drawn and resulted today, results to be reviewed by Alina Blood PA-C. * Telephone Encounter - Zulma Acevedo RN - 10/26/2023 0906 EDT Call placed to patient to see if she would be open to get labs today. Standing orders in place. Patient did not answer, left VM. Will follow up with patient. Patient returned call. Patient reports feeling slightly better today. 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 She is having small incomplete BMs with gas, feels 90% distended in her abdomen, weight today was 133.5lb, up slightly from 14. Pt is taking Miralax today, no BM yet. Provider aware of symptoms and requesting labs. Pt is scheduled for a GI appointment on 10/26, pt will get labs just prior to this appointment. Will update providers, standing orders in place. Pt aware to call with any questions or concerns in meantime. * Telephone Encounter - Zulma Acevedo RN - 10/25/2023 1544 EDT Called to check in on patient. Pt has been struggling with fatigue, diarrhea and constipation following first Enhertu infusion. Constipation had been a previous issue and pt has been trailing bowel medications. Pt reports to having incomplete Bms, gluey in consistency, denies mucous. At this time, she is not regularly taking medications to help with her bowels. She does report being able to tolerate more PO intake, eating clam chowder with crackers, romanian muffins, fruit and pasta without issue, does not feel like it is sitting in her abdomen but moving through slowly. She reports still feeling distended. Had visit with PCP on 10/23, who in pts words, reported she had never seen the patient in such bad shape. Pt is also struggling with fatigue, napping during the day after sleeping 11hours at night. Prescribed cough medicine with codeine by PCP which is helping with her cough and sleep. Will update provider. Pt also wondering if she is ok to have a filling fixed while on treatment. Recommended that patient discuss with dentist but that she should ideally time it as close to just prior to her next treatment as possible. Pt will update RN with dental appointment timing once sheestablishes care with a provider. Pt also curious about GI referral and NM scan scheduling. Will discuss with scheduling and update pt when scheduled. documented in this encounter Plan of Treatment Upcoming Encounters Date Type Department Care Team (Late st Contact Info) Description 04/02/2024 10:30 EDT Appointment [facility] Interventional Radiology Unit [address] [place] [address] [phone] 04/02/2024 15:15 EDT Office Visit [facility] Surgical Oncology - [address] [phone] Adolfo Carreno MD 111 [facility], Level 2 [place] [phone] 04/05/2024 9:30 EDT Telemedicine [facility] Palliative Care Services [address] [place], [place] [phone] Chichi Woods MD 111 [facility], [address] [phone] 04/11/2024 15:00 EDT Telemedicine [facility] Hematology & Oncology - [address] [phone] Alisson Carreon MD [address] [place] [address] 2 [place] [phone] 04/13/2024 13:30 EDT Appointment [facility] Hematology & Oncology - [address] [phone] 04/13/2024 14:00 EDT Appointment [facility] Hematology & Oncology [address] [phone] 04/16/2024 10:00 EST Telemedicine [facility] Palliative Care Services [address] [place] [address] [phone] Chichi Woods MD [address] [place] [address] [phone] 04/24/2024 9:00 EST Appointment [facility] Radiology CT Outpatient - [address] [phone] 04/24/2024 11:00 EST Appointment [facility] Breast Imaging - [address] [phone] 04/27/2024 12:00 EST Appointment [facility] Hematology & Oncology - [address] [phone] 05/02/2024 15:00 EST Telemedicine [facility] Hematology & Oncology - [address] [phone] Alisson Carreon MD [address] [place] [address], [facility] 2 [place] [phone] 05/04/2024 10:15 EST Ancillary Procedure [facility] Cardiology - [address] [place] [address] 05/04/2024 11:30 EST Appointment [facility] Hematology & Oncology - [address] [address] 05/04/2024 12:00 EST Appointment [facility] Hematology & Oncology [address] 226111 06/12/2024 13:00 EST Appointment [facility] Radiology CT - [address] 962201 documented as of this encounter Visit Diagnoses Not on filedocumented in this encounter Care Teams Bus Analyst Relationship Specialty Start Date End Date Linda Blancas MD [facility] [address] [place] [address] PCP - General 01/06/11 Adolfo Carreno MD [address] [place] [address] [phone] General Surgery 04/26/19 Augustina Colin MD PhD [address] [place] [address] 2 [place] [phone] Medical Oncology 04/26/19 documented as of this encounter
--- OUTSIDE RECORDS SUMMARY | 2024-03-20 14:40 | XMS_ITS | Encounter Summary ---
Author Organization [facility] Address [address] [place] [address] Care Team Providers Care Instructor Nurse Name Role Phone Linda Blancas MD Primary Care Provider Adolfo Carreno MD Unavailable [phone] Augustina Colin MD PhD Unavailable Unavailable Encounter Details Date Type Department Care Team (Latest Contact Info) Description 11/08/2023 Travel Social History Tobacco Use Types Packs/Day [...] Contact Info) Description 04/02/2024 10:30 EDT Appointment [facility] Interventional Radiology Unit [address] [place] [address] [phone] 04/02/2024 15:15 EDT Office Visit [facility] Surgical Oncology - [address] [phone] Adolfo Carreno MD [address] [place] [address] 2 [place] [phone] 04/05/2024 9:30 EDT Telemedicine [facility] Palliative Care Services [address] [place] [address] [phone] Chichi Woods MD [address] [place] [address] [phone] 04/11/2024 15:00 EDT Telemedicine [facility] Hematology & Oncology [address] [phone] Alisson Carreon MD [address] [place] [address] [phone] 04/13/2024 13:30 EDT Appointment [facility] Hematology & Oncology [address] [phone] 04/13/2024 14:00 EDT Appointment [facility] Hematology & Oncology [address] [id number] 04/16/2024 10:00 EST Telemedicine [facility] Palliative Care Services [address] [place] [address] [phone] Chichi Woods MD [address] [place] [address], [address] [phone] 04/24/2024 9:00 EST Appointment [facility] Radiology CT Outpatient - [address] [id number] 04/24/2024 11:00 EST Appointment [facility] Breast Imaging - [facility] [address] [phone] 04/27/2024 12:00 EST Appointment [facility] Hematology & Oncology [address] [phone] 05/02/2024 15:00 EST Telemedicine [facility] Hematology & Oncology [address] [phone] Alisson Carreon MD [address] [place] [address], Level [address] [place] [phone] 05/04/2024 10:15 EST Ancillary Procedure [facility] Cardiology - [address] [place], [place] [phone] 05/04/2024 11:30 EST Appointment [facility] Hematology & Oncology [address] [phone] 05/04/2024 12:00 EST Appointment [facility] Hematology & Oncology [address] [phone] 06/12/2024 13:00 EST Appointment [facility] Radiology CT - [address] [phone] documented as of this encounter Visit Diagnoses Not on filedocumented in this encounter Care Teams Instructor Nurse Relationship Specialty Start Date End Date Linda Blancas MD [facility] [address] [place] [address] PCP - General 01/06/11 Adolfo Carreno MD [address] [place] [phone] General Surgery 04/26/19 Augustina Colin MD PhD [address] [place] [phone] Medical Oncology 04/26/19 documented as of this encounter
--- OUTSIDE RECORDS SUMMARY | 2024-03-20 14:40 | XMS_ITS | Encounter Summary ---
Author Organization [facility] Address [address] [place] [address] Care Team Providers Care Cyanide Pot Hardener Name Role Phone Linda Blancas MD Primary Care Provider [phone] Adolfo Carreno MD Unavailable [phone] Augustina Colin MD PhD Unavailable Unavailable Reason for Referral * PT/OT/ST (Urgent) - Closed Specialty Diagnoses / Procedures Referred By [facility] Referred To Contact Rehab Therapies Diagnoses Primary malignant neoplasm of breast with metastasis (HCC-CMS) Augustina Colin MD PhD [facility] [address] [place] [address] Referral ID Status Reason Start Date Expiration Date V isits Requested Visits Authorized [id number] Closed Specialty Services Required 11/03/2023 1 1 Question Answer Reason for Request: breast cancer, lyphadema, L arm Comments This referral may serve as a referral to occupational therapy if appropriate. Reason for Visit * Reason Onset Date Comments New/Evolving Symptoms 11/03/2023 Returning Call 11/03/2023 Encounter Details Date Type Department Care Team (Late st Contact Info) Description 11/03/2023 Telephone [facility] Hematology & Oncology - [place] [address] [place], [place] [id number] Augustina Colin MD PhD New/Evolving Symptoms; Returning Call Social History Tobacco Use Types Packs/Day Years [...] Encounter - Zulma Acevedo RN - 11/04/2023 1825 EDT Pt returned call placed to pt to discuss how her port placement went, her lymphedema referral to PT, her high bilirubin levels and what to look out for, and her constipation. This RN reviewed the material above (also discussed in [employer] message) and answered all questions. Pt aware to go to ER or call information assurance analyst provider with any yellowing of skin or eyes or any new or worsening symptoms. Pt aware of labs/PV/ treatment on 11/07. Pt to reach out with any questions or concerns. * Telephone Encounter - Rashawn Drew - 11/03/2023 8236 EDT Patient calling asking to speak with nurse * Telephone Encounter - Zulma Acevedo RN - 11/03/2023 1140 EDT Pt called in reporting possible lymphedema in her left arm. Per pt report she stated that she woke up with her left arm swollen, unable to see veins and bones. Pt reports over phone that yes it is warm and painful. This RN reached out to providers, stat US order placed. Pt on site to have port placed. Pt scheduled for stat US to L arm. IR updated that port placement will be delayed. Pt made aware of US being scheduled. Pt sent up to US, pt to call nursing when study complete. Per preliminary report and patient verbalization, L arm negative for DVT, provider notified of preliminary result. Pt to having port placed. This RN visualized pt L arm to assess for cellulitis, minimal redness noted, edema present. Provided assessment to Dr. Colin who suggested PT referral for pos sible lymphedema, referral placed. Call placed to pt Nitish for update per pt request. Nitishwas happy to hear there was no clot and that pt was having port placed. Nitish verbalized frustration with the GI team in that they did not want the pt to have any invasive procedures despite Sendy still having some issues with her bowels. Nitish reports that Sendy did complete the colonoscopy prep and was cleaned out and had about 3 good days where she was not uncomfortable from any constipationbut that she is now back to having pellet stool and is getting more uncomfortable. Nitish reports Sendy is taking the Miralax as advised. Her good days included being outside, gardening and having good energy in comparison to being on the couch in pain. Will update provider and discuss next steps in r/t her bowel regimen and status. Will also call patient on 11/03 to check in. * Telephone Encounter - Lulu Mcgovern - 11/03/2023 1009 EDT [facility] Incoming Call Active Symptoms/Disease Management Reported active symptoms: Lymphedema When did you start experiencing these symptoms? Today Are they constant or intermittent? Constant Have you ever experienced these symptoms before? No What have you tried to alleviate the symptoms?N/A Any additional patient reported details: Headed toward [facility] so cell service is taryn Mcgovern 11/03/2023 10:12 documented in this encounter Plan of Treatment Upcoming Encounters Date Type Department Care Team (Late st Contact Info) Description 04/02/2024 10:30 EDT Appointment [facility] Interventional Radiology Unit [address] [place] [address] [phone] 04/02/2024 15:15 EDT Office Visit [facility] Surgical Oncology - [address] [phone] Adolfo Carreno MD [address] [place] [address] [phone] 04/05/2024 9:30 EDT Telemedicine [facility] - [facility] Palliative Care Services [address] [place] [address] [phone] Chichi Woods MD [address] [place] [address] [phone] 04/11/2024 15:00 EDT Telemedicine [facility] Hematology & Oncology [address] [phone] Alisson Carreon MD [address] [place] [address] [phone] 04/13/2024 13:30 EDT Appointment [facility] Hematology & Oncology [address] [phone] 04/13/2024 14:00 EDT Appointment [facility] Hematology & Oncology [address] [phone] 04/16/2024 10:00 EST Telemedicine [facility] - [facility] Palliative Care Services [address] [place] [address] [phone] Chichi Woods MD [address] [place] [address], [address] [place] [phone] 04/24/2024 9:00 EST Appointment [facility] Radiology CT Outpatient - [address] [id number] 04/24/2024 11:00 EST Appointment [facility] Breast Imaging - [facility] [address] [place], [place] [address] 04/27/2024 12:00 EST Appointment [facility] Hematology & Oncology - [address] [phone] 05/02/2024 15:00 EST Telemedicine [facility] Hematology & Oncology - [address] [phone] Alisson Carreon MD [address] [place] [address], [facility], Level [address] [place] [phone] 05/04/2024 10:15 EST Ancillary Procedure [facility] Cardiology [place] [address] [place] [address] 05/04/2024 11:30 EST Appointment [facility] Hematology & Oncology - [address] [id number] 05/04/2024 12:00 EST Appointment [facility] Hematology & Oncology [address] [phone] 06/12/2024 13:00 EST Appointment [facility] Radiology CT - [address] [phone] Scheduled Referrals Name Type Priority Associated Diagnoses Orde r Schedule AMB CONS/FOLLOW UP PHYSICAL THERAPY Outpatient Referral Urgent Primary malignant neoplasm of breast with metastasis (HCC-CMS) Expected: 11/05/2023 (Approximate), Expires: 11/02/2024 documented as of this encounter Visit Diagnoses Diagnosis Primary malignant neoplasm of breast with metastasis (HCC-CMS)- Primary documented in this encounter Care Teams Cyanide Pot Hardener Relationship Specialty Start Date End Date Linda Blancas MD [facility] [address] [place] [address] PCP - General 01/06/11 Adolfo Carreno MD [address] [place] [address], [facility] [address] [place] [phone] General Surgery 04/26/19 Augustina Colin MD PhD [address] [place] [address], [facility] [address] [place] [phone] Medical Oncology 04/26/19 documented as of this encounter
--- OUTSIDE RECORDS SUMMARY | 2024-03-20 14:40 | XMS_ITS | Encounter Summary ---
Author Organization [facility] Address [address] [place] [address] Care Team Providers Care Plant Protection Supervisor Name Role Phone Linda Blancas MD Primary Care Provider [phone] Adolfo Carreno MD Unavailable [phone] Augustina Colin MD PhD Unavailable Unavailable Reason for Referral * Radiology Services (Routine/Next Available) - Authorization Not Required Specialty Diagnoses / Procedures Referred By Contac t Referred To Contact Diagnoses Malignant neoplasm of right female breast, unspecified estrogen receptor status, unspecified site of breast ([facility]) Procedures IR CHEST PORT 5 YRS OR OLDER Augustina Colin MD PhD [facility] Referral ID Status Reason Start Date Expiration Date Visits Requested Visits Authorized [id number] Authorization Not Required 10/13/2023 1 1 Reason for Visit * Radiology Services (Routine/Next Available) - Authorization Not Required Specialty Diagnoses / Procedures Referred By Contac t Referred To Contact Diagnoses Malignant neoplasm of right female breast, unspecified estrogen receptor status, unspecified site of breast ([facility]) Procedures IR CHEST PORT 5 YRS OR OLDER Augustina Colin MD PhD [facility] Referral ID Status Reason Start Date Expiration Date Visits Requested Visits Authorized [id number] Authorization Not Required 10/13/2023 1 1 Encounter Details Date Type Department Care Team (Late st Contact Info) Description 11/03/2023 11:44 EDT - 11/03/2023 23:59 EDT Hospital Encounter [facility] Interventional Radiology Unit [address] [place] [address] David Moya MD [address] [place] [address], [place], [address] [place] [phone] Malignant neoplasm of right female breast, unspecified [...] Sign Reading Time Taken Comments Blood Pressure 133/76 11/03/2023 1655 EDT Pulse - - Temperature 36.4 ??C (97.5 ??F) 11/03/2023 1655 EDT Respiratory Rate 16 11/03/2023 1630 EDT Oxygen Saturation 95% 11/03/2023 1655 EDT Inhaled Oxygen Concentration - - Weight 60.3 kg (133 lb) 11/03/2023 1313 EDT Height 154.9 cm (5' 1) 11/03/2023 1313 EDT Body Mass Index 25.13 11/03/2023 1313 EDT documented in this encounter [...] * Discharge Instructions* Marika Charles RN - 11/03/2023 15:24 EDT RADIOLOGY PATIENT EDUCATION INSTRUCTIONS FOLLOWING YOUR CHEST PORT PLACEMENT Procedure Site - Chest, Right Provider - David Moya MD Date: 11/03/2023 A port consists of a metal or plastic disc that is implanted under your skin. It is connected to a tube, which is in a vein close to your heart. The type of port placed depends on your infusion needsand the wishes of you and your doctor. You have received a POWER PORT, which provides access for infusions and blood draws. This type of port not only provides access for infusions and blood draws, but it can also be used for power injections of contrast (intravenous dye) when getting a CT scan. Patients who do not have this special type of port need to have an IV started if they need dye injected for their CT scan. When getting a CT scan, a special Kessler needle is used so it is important for you to know what type of port you have. You will be provided with an ID card stating the yield analyst and type of port you have. PLEASE KEEPTHIS CARD WITH YOU. Today: DO NOT drive or make legal decisions today. DO NOT lie flat for a minimum of 4 hours from the end time of your procedure to reduce your risk ofbleeding. You may resume your normal diet after the procedure. Avoid alcoholic beverages for 24 hours to reduce your risk of bleeding. You may take Tylenol (acetaminophen) for any discomfort you have. Blood thinning medicine:NO Do not hold any medication Please continue all medication as prescribed. Activity Guidelines: Rest today. You may resume normal activities tomorrow, but do not lift anything heavier than 15 pounds for one week (a gallon of milk is 8 pounds). Do not play contact sports while you have a port. If you have a large chest, we encourage you to wear a supportive bra for 7 days continuously to limit pulling of the wound site. General Port Care: Your port was not accessed with a needle during placement in Radiology. You must not shower while your port is accessed. Your port must be flushed with saline or heparin, even if it???s not being used to keep the end valves open. This is arranged by the provider who requested the port (usually oncea month for regular or once every 3 months for power ports). Was your port accessed? No Showering and wound care (Please note: If your port is accessed, you must not shower or change the dressing. It must only be changed by trained staff under sterile technique): Leave your dressing(s) intact for 24 hours. You may shower 24 hours after your port is placed, but you must not submerge in water for at least 10 days after the port is placed (no tub, hot tub, or swimming). To shower: shower with a dressing in place while facing away from the shower stream. After your shower, peel the dressing off. Gently pat your skin dry if it is damp. Replace the bandage. You should be discharged with dressing supplies. Soap and water should not come in contact with your port site for 7 days, but the neck wound may get wet with soap and water after 24 hours. Whether you shower or not, replace the bandage daily for 7 days with the dressing supplies given allison (the neck wound may be covered with a bandaid or left open to air). Place a gauze over the entire wound, including the paper strips and glue if they are used, prior to placing the sticky portion of the dressing. Always avoid topical medication. Do not apply liquid or ointment medications, lotions, creams, oilsor any other product to your wound. EMLA: (a numbing cream may be applied to your port site after it is healed. Your oncology provider will order this medication for you at your request). Protect the wound from prolonged sunlight exposure. Do not use a tanning lamp. If your provider used steri-strips (thin tape strips), please leave them intact for 14 days. If they are still intact after 2 weeks, you may remove them by gently peeling them away after wetting them. Your provider used Dermabond, a skin glue, to hold the wound edges together. It looks like a secondskin or film on the skin. The glue usually remains in place for 5-10 days before it falls off. Do not pick at the glue. It will fall off as your skin is renewed. Things to Report (our phone number is below. Someone can take your call 24 hours/day including weekends and holidays): If your dressing becomes saturated with blood: hold pressure on your wound site for 10 minutes. If the bleeding does not stop, call our department. A small spot of blood is common. Signs or symptoms of infection: redness, swelling, drainage, fever greater than 100 degrees Fahrenheit or 38 degrees Celsius, pain at the port site that is not relieved by Tylenol. A growing/firm bruise. A small/soft bruise is common. Swelling, pain, or redness of the arm or neck on the side the port was placed Shortness of breath or abnormal heart beats Any other concerns you may have regarding your port Port Removal: When your doctor determines that you no longer need your port they will refer you to the Interventional Radiology department to have your port removed. Usually the ports are removed using a local anesthetic (numbing medicine). IF YOU HAVE ANY QUESTIONS OR CONCERNS [...] Tablets by mouth as needed. 12/07/2023 mv-mn/C/glutamin/lysin /[id number] (AIRBORNE, ASCORBATE SODIUM, ORAL) Take by mouth [...] Progress Notes * Marika Charles, RN - 11/03/2023 1200 EDT Procedure: Port placement Patient received from CVU to at 1458. Patient name and verified using armband and verbally. Consent completed and verified. Patient is alert and oriented x 4, able to follow commands with all extremities, able to make needs known. No complaints of pain. Patient's allergies, medications, lab results, and eligibility for IV moderate sedation reviewed. The patient is eligible for IV moderate sedation, IV site checked for patency. Patient educated on procedure and sedation side effects explained, patient verbalized understanding. Patient in supine position on table, safety straps in place. VS assessed. Conscious sedation started. Sterile prep of right neck/chest with duraprep by FANTASMAG in the usual sterile fashion in compliance with manufacturers recommendation. Time out completed with all staff in room prior to start of procedure (KERRIEN, SUKHJINDER, FANTASMAG, and Dr. Moya as supervising provider). Access: Ultrasound guidance utilized to access the right IJ, access confirmed under fluoro, fluoro continued. 8 Fr single lumen power port placed without incident. Port incision site closed with sutures, dermabond, and steri-strips. Port is not accessed. Port site is clean/dry/intact. Procedure completed by Dr. Moya who was present from start of sedation until end of procedure. 30 min of sedation time Medication administration IV Versed 3.5 mg IV Fentanyl 175 mcg Follow up: Patient to not lay flat for the next 4 hours. Discharge instructions placed in the patient's chart. Report given to CVU RN. Patient transferred in stable condition. documented in this encounter H&P Notes * Scotty Noble PA-C - 11/03/2023 1200 EDT The preoperative history and physical which was performed within 30 days of this procedure has been reviewed and the clinically appropriate elements of the physical examination have been repeated. There are no changes to the documented history and physical or if so such changes are documented below SCOTTY NOBLE PA-C 11/03/2023 13:32 Source Note - Nettie Sánchez NP - 10/27/2023 14:30 EDT Gastroenterology & Hepatology Initial Visit Reason for Referral: Constipation PCP: Linda Blancas Impression: Constipation, bloating, early satiety may be related to constipation from medication side effect. Abdominal distension also likely r/t ascites seen on recent imaging. Will facilitate referral to hepatology as requested by ED healthcare practitioner. Had normal colonoscopy per patient reports at [facility] January 2024. Discussed bowel regimen. If persistent [...] and constipation returned. Seen in the ED ([facility]) 10/13 and had imaging that r/o bowel [...] studies as it wasn't included in the mjens-el-syai. Limited evaluation of lumbarspine due to streak [...] Take by mouth daily., Disp: , Rfl: mv-mn/C/glutamin/lysin/[id number] (AIRBORNE, ASCORBATE SODIUM, ORAL), Take by mouth [...] the above note. documented in this encounter Procedure Notes * David Moya MD - 11/03/2023 1200 EDT Central Catheter Insertion First Catheter This Session assistant media planner: Patient Location: Room/bed info not found Preliminary Data: Insertion Date: 11/03/23 Insertion Time: 1525 First Pen Rider: Dr. Moya RN/MA Documenting Procedure: NBN Pre-procedure: Time Out / Final Moment Performed: Yes Hand Hygiene Immediately Prior To Procedure: Yes Site Disinfected-2% Chlorhex/70% Alcohol: Yes (duraprep) Procedure Site Completely Dry: Yes Entire Patient Draped in Sterile Fashion: Yes Intra-procedure: Sterile Gloves Used: Yes Cap, Mask, and Sterile Gown - Operators: Yes Sterile Field Maintained: Yes Cap and Mask Worn - All Personnel: Yes Post-procedure: Sterile Dressing Applied - Sterile Technique: Yes Dressing Dated And Timed: Yes Needle Passes: Physician Documentation Pre-Procedure: Procedure To Be Performed: New central line placement Indication: New indication Line Priority: Routine Tip Confirmation: Placed under fluoro Consent Obtained: Yes The patient and/or family have been provided education/training to minimize the risk of central line-associated bloodstream infections. Central Line Type: Central Catheter Type: Implanted Port Implanted Port: Implanted port Central Line Details: Line Location: Right;Internal Jugular Final Tip Location: Superior Vena Cava Line Lumens (#): Single Responsible Service / IR Details: Responsible Service: IR Fluoroscopy Time (min): 0.7 Patient Condition At Completion Of Case: Stable Central Line Materials and Methods: Number of Attempts: 1 Number of Sites Attempted: 1 Central Line Operators: Number Of Operators: 1 First Pen Rider's Title: Attending Unless otherwise noted, there were no complications, no blood loss and no cultures obtained. David Moya MD 11/03/2023 15:51 documented in this encounter Plan of Treatment Upcoming Encounters Date Type Department Care Team (Late st Contact Info) Description 04/02/2024 10:30 EDT Appointment [facility] Interventional Radiology Unit [address] [place] [phone] 04/02/2024 15:15 EDT Office Visit [facility] Surgical Oncology - [address] [phone] Adolfo Carreno MD [address] [place] [address] [address] [place] [phone] 04/05/2024 9:30 EDT Telemedicine [facility] - [facility] Palliative Care Services [address] [place] [address] [phone] Chichi Woods MD [address] [place] [phone] 04/11/2024 15:00 EDT Telemedicine [facility] Hematology & Oncology [address] [phone] Alisson Carreon MD [address] [place] [address] [address] [place] [phone] 04/13/2024 13:30 EDT Appointment [facility] Hematology & Oncology [address] [phone] 04/13/2024 14:00 EDT Appointment [facility] Hematology & Oncology - [address] [address] 04/16/2024 10:00 EST Telemedicine [facility] - [facility] Palliative Care Services [address], [place] [phone] Chichi Woods MD [address] [facility], [address] [phone] 04/24/2024 9:00 EST Appointment [facility] Radiology CT Outpatient - [address] [phone] 04/24/2024 11:00 EST Appointment [facility] Breast Imaging - [address] [address] 04/27/2024 12:00 EST Appointment [facility] Hematology & Oncology - [address] [phone] 05/02/2024 15:00 EST Telemedicine [facility] Hematology & Oncology - [address] [phone] Alisson Carreon MD [address] [place] [address], [address] [place] [phone] 05/04/2024 10:15 EST Ancillary Procedure [facility] Cardiology - [place] [address] 05/04/2024 11:30 EST Appointment [facility] Hematology & Oncology - [address] [address] 05/04/2024 12:00 EST Appointment [facility] Hematology & Oncology - [address] [phone] 06/12/2024 13:00 EST Appointment [facility] Radiology CT - [address] [phone] documented as of this encounter Procedures Procedure Name Priority Date/Time Associated Diagnosis Comments COMPREHENSIVE METABOLIC PANEL (ONCOLOGY USE ONLY-INC MG) STAT 11/03/2023 16:33 EDT Primary malignant neoplasm of breast with metastasis (HCC-CMS) COMPLETE BLOOD COUNT AND DIFFERENTIAL STAT 11/03/2023 16:33 EDT Primary malignant neoplasm of breast with metastasis (HCC-CMS) IR CHEST PORT 5 YRS OR OLDER STAT 11/03/2023 15:51 EDT Malignant neoplasm of right female breast, unspecified estrogen receptor status, unspecified site of breast (HCC-CMS) documented in this encounter Results * (ABNORMAL) COMPLETE BLOOD COUNT AND DIFFERENTIAL (11/03/2023 16:33 EDT) WBC 4.02 4.00 - 12.40 K/cmm 11/03/2023 16:53 [facility] RBC 3.20(L) 3.86 - 5.04 M/cmm 11/03/2023 16:53 [facility] Hemoglobin 10.0(L) 11.6 - 15.2 g/dL 11/03/2023 16:53 [facility] HCT 30.4(L) 34.9 - 44.4 % 11/03/2023 16:53 [facility] MCV 95 81 - 98 fL 11/03/2023 16:53 [facility] MCH 31.3 26.7 - 33.3 pg 11/03/2023 16:53 [facility] MCHC 32.9 32.1 - 35.9 g/dL 11/03/2023 16:53 [facility] RDW-CV 18.1(H) <14.7 % 11/03/2023 16:53 [facility] RDW-SD 57.6(H) <50.4 fl 11/03/2023 16:53 [facility] PLT 264 141 - 377 K/cmm 11/03/2023 16:53 [facility] MPV 10.0 9.5 - 12.7 fL 11/03/2023 16:53 [facility] % Neutrophils 48.0 % 11/03/2023 16:53 [facility] % Lymphocytes 21.9 % 11/03/2023 16:53 [facility] % Monocytes 25.4 % 11/03/2023 16:53 [facility] % Eosinophils 2.7 % 11/03/2023 16:53 [facility] % Basophils 1.5 % 11/03/2023 16:53 [facility] % Immature Grans 0.5 % 11/03/19 16:53 [facility] Absolute Neutrophils 1.93(L) 2.20 - 8.85 K/cm 11/03/2023 16:53 [facility] Absolute Lymphocytes 0.88(L) 1.09 - 3.30 K/cm 11/03/2023 16:53 [facility] Absolute Monocytes 1.02(H) 0.10 - 0.80 K/cmm 11/03/2023 16:53 [facility] Absolute Eosinophils 0.11 0.03 - 0.61 K/cmm 11/03/2023 16:53 [facility] ABS Basophils 0.06 0.01 - 0.11 K/cmm 11/03/2023 16:53 [facility] Absolute Immature Grans 0.02 0.00 - 0.06 K/cm 11/03/2023 16:53 [facility] Type of Differential: Auto 11/03/2023 16:53 [facility] Blood VENOUS BLOOD / Unknown Venipuncture / Unknown 11/03/2023 16:33 EDT 11/03/2023 16:37 EDT Augustina Colin MD PhD PACKAGES & DNA PROBE ORDERABLES [facility] [address] [place] [address] * (ABNORMAL) COMPREHENSIVE METABOLIC PANEL (ONCOLOGY USE ONLY-INC MG) (11/03/2023 16:33 EDT) Sodium 138 136 - 145 mmol/L 11/03/2023 16:55 [facility] Potassium 4.2 3.5 - 5.0 mmol/L 11/03/2023 16:55 [facility] Chloride 109 96 - 110 mmol/L 11/03/2023 16:55 [facility] CO2 Total 24 22 - 32 mmol/L 11/03/2023 16:55 [facility] Glucose 99 70 - 99 mg/dl 11/03/2023 16:55 [facility] BUN 13 10 - 26 mg/dL 11/03/2023 16:55 [facility] Creatinine 0.56 0.52 - 1.04 mg/dL 11/03/2023 16:55 [facility] eGFR 103 >60 mL/min/1.7 3m2 11/03/2023 16:55 [facility] Total Protein 5.6(L) 6.3 - 8.2 g/dL 11/03/2023 16:55 [facility] Albumin 2.7(L) 3.4 - 4.9 g/dL 11/03/2023 16:55 [facility] Alkaline Phosphatase 422(H) 38 - 126 U/L 11/03/2023 16:55 [facility] AST 116(H) 15 - 46 U/L 11/03/2023 16:55 [facility] ALT 59(H) <35 U/L 11/03/2023 16:55 [facility] Bilirubin, Total 1.9(H) <1.4 mg/dL 11/03/19 16:55 [facility] Calcium 8.1(L) 8.5 - 10.5 mg/dL 11/03/2023 16:55 [facility] Magnesium 2.0 1.7 - 2.8 mg/dL 11/03/2023 16:55 EDT [facility] Albumin/Globulin Ratio 0.9(L) 1.0 - 2.5 11/03/2023 16:55 EDT [facility] Anion Gap 5 5 - 14 mmol/L 11/03/2023 16:55 EDT [facility] Blood VENOUS BLOOD / Unknown Venipuncture / Unknown 11/03/2023 16:33 EDT 11/03/2023 16:37 EDT Augustina Colin MD PhD CHEMISTRY & BLOOD GA S ORDERABLES [facility] [address] [place] [address] * IR CHEST PORT 5 YRS OR OLDER (11/03/2023 15:51 EDT) Anatomical Region Laterality Modality Chest N/A X-Ray Angiograph y 11/04/2023 18:0 8 EDT Impressions 11/04/2023 18:08 EDT Right single lumen chest port placement using ultrasound and fluoroscopic guidance. [id number] Narrative 11/04/2023 18:08 EDT CHEST PORT HISTORY: Breast cancer. TECHNIQUE: Informed consent was obtained after the risks and benefits of the procedure were discussed with the patient. The specific risks of this procedure which were discussed include but were not limited to bleeding, infection, and vascular injury. Moderate sedation was provided with intravenous Versed and fentanyl while continuously monitoring the patient's blood pressure, heart rate, respiratory rate and pulse oxygenation. A procedural time out was performed prior to the procedure, where the procedure, site, and patient identification was confirmed by all healthcare providers present in the room. The patient's right neck and chest were sterilely prepped and draped. By ultrasound examination, the right internal jugular vein was patent and fully compressible, with no visualized thrombus. Using real-time ultrasound guidance and lidocaine local anesthesia, the right internal jugular vein was accessed with a micropuncture needle. A permanent recording of the ultrasound was placed in the patient's record. The access needle was exchanged over a guidewire for a micropuncture sheath. The right anterior chest was anesthetized with lidocaine local anesthesia. A transverse upper chest incision was made and the chest port pocket created using both blunt and sharp dissection. The chest port catheter was then tunneled subcutaneously from the chest port pocket to the right internal jugular venotomy site. ??The micropuncture sheath was then exchanged over a guidewire for a peel-away sheath. The chest port catheter was then placed through the peel-away sheath and its tip positioned in the superior vena cava using fluoroscopic guidance. The peel-away sheath was then removed, and the catheter was then cut to length and connected to the reservoir. The chest port was then flushed and placed within the pocket, and the pocket closed with resorbable sutures. Dermabond was then applied. Maximum sterile barrier technique according to current guidelines was used. This includes cap, mask, sterile gown, sterile gloves, and a large sterile sheet. Hand hygiene was used. Chlorhexidine 2% was utilized for cutaneous antisepsis. Resulting Agency Comment [id number] Procedure Note Scriver, David Rowley MD - 11/04/2023 CHEST PORT HISTORY: Breast cancer. TECHNIQUE: Informed consent was obtained after the risks and benefits of theprocedure were discussed with the patient. The specific risks of thisprocedure which were discussed include but were not limited to bleeding,infection, and vascular injury. Moderate sedation was provided withintravenous Versed and fentanyl while continuously monitoring thepatient's blood pressure, heart rate, respiratory rate and pulseoxygenation. A procedural time out was performed prior to the procedure,where the procedure, site, and patient identification was confirmed by allhealthcare providers present in the room. The patient's right neck and chest were sterilely prepped and draped. Byultrasound examination, the right internal jugular vein was patent andfully compressible, with no visualized thrombus. Using real-timeultrasound guidance and lidocaine local anesthesia, the right internaljugular vein was accessed with a micropuncture needle. A permanentrecording of the ultrasound was placed in the patient's record. The accessneedle was exchanged over a guidewire for a micropuncture sheath. Theright anterior chest was anesthetized with lidocaine local anesthesia. Atransverse upper chest incision was made and the chest port pocket createdusing both blunt and sharp dissection. The chest port catheter was thentunneled subcutaneously from the chest port pocket to the right internaljugular venotomy site. The micropuncture sheath was then exchanged over aguidewire for a peel-away sheath. The chest port catheter was then placedthrough the peel-away sheath and its tip positioned in the superior vena cava using fluoroscopic guidance. The peel-away sheath wasthen removed, and the catheter was then cut to length and connected to thereservoir. The chest port was then flushed and placed within the pocket,and the pocket closed with resorbable sutures. Dermabond was thenapplied. Maximum sterile barrier technique according to current guidelines wasused. This includes cap, mask, sterile gown, sterile gloves, and a largesterile sheet. Hand hygiene was used. Chlorhexidine 2% was utilized forcutaneous antisepsis. IMPRESSION Right single lumen chest port placement using ultrasound and fluoroscopicguidance. [id number] Augustina Colin MD PhD IMG IR ORDERABLES documented in this encounter Visit Diagnoses Diagnosis Malignant neoplasm of right female breast, unspecified estrogen receptor status, unspecified site of breast (HCC-CMS) Primary malignant neoplasm of breast with metastasis (HCC-CMS) documented in this encounter Administered Medications Inactive Administered Medications - up to 3 most recent administrations Medication Order MAR Action Action Date Dose Rate Site chlorhexidine gluconate 2 % cloth 1 Each 1 Each, topical, DAILY, First dose on Tue11/04/23 at 0900, Until Discontinued, Routine, Preprocedure Given 11/03/2023 14:17 EDT 1 Each fentaNYL citrate (PF) injection 25-250 mcg 25-250 mcg, intravenous, EVERY 2 MINUTES PRN, Starting on Michelle 11/03/23 at 1521, Until Michelle 11/03/23 at 1552, Other, Per Admin Instructions ONLY, Routine, Intraprocedure Given 11/03/2023 15:25 EDT 25 mcg Given 11/03/2023 15:15 EDT 50 mcg Given 11/03/2023 15:10 EDT 50 mcg midazolam (VERSED) injection 0.5-10 mg 0.5-10 mg, intravenous, EVERY 2 MINUTES PRN, Starting on Michelle 11/03/23 at 1521, Until Michelle 11/03/23 at 1552, Other, Per Admin Instructions ONLY, Routine, Intraprocedure Given 11/03/2023 15:25 EDT 0.5 mg Given 11/03/2023 15:15 EDT 1 mg Given 11/03/2023 15:10 EDT 1 mg povidone-iodine solution 5% (Skin and Nasal Antiseptic) 1 Kit 1 Kit, nasal, Once (Without Time Specified), 1 dose, Starting on Michelle 11/03/23 at 1301, Until Michelle 11/03/23 at 1417, Routine, Preprocedure Given 11/03/2023 14:17 EDT 1 Kit sodium chloride 0.9 % (NS) infusion 50 mL/hr, intravenous, CONTINUOUS, Starting on Michelle 11/03/23 at 1330, Until 11/05/23 at 0203, Routine, Preprocedure Rate Documented 11/03/2023 15:52 EDT 50 mL/hr 50 mL/hr New Bag 11/03/2023 14:18 EDT 50 mL/hr 50 mL/hr documented in this encounter Orders Medications Ordered That Vj ht Not Have Been Administered Count Last Ordered Date First Ordered Date acetaminophen (TYLENOL) suppository 650 mg 1 11/03/2023 acetaminophen (TYLENOL) tablet 650 mg 1 flumazenil (ROMAZICON) injection 0.2 mg 1 0 11/03/2023 lidocaine (PF) 10 mg/mL (1 % ) injection 2 mg 1 11/03/2023 naloxone (NARCAN) injection 0.4 mg 1 2023 Discharge Count Last Ordered Date First Orde red Date DISCHARGE PATIENT 1 11/03/2023 documented in this encounter Care Teams Plant Protection Supervisor Relationship Specialty Start Date End Date Linda Blancas MD [address] [place] [address] PCP - General 01/06/11 Adolfo Carreno MD [address] [place] [address], [facility], [facility] [address] [place] [phone] General Surgery 04/26/19 Augustina Colin MD PhD 111 [facility], [facility] 2 [place] [address] Medical Oncology 04/26/19 documented as of this encounter
--- OUTSIDE RECORDS SUMMARY | 2024-03-20 14:40 | XMS_ITS | Encounter Summary ---
Author Organization [facility] Address [address] [place] [address] Care Team Providers Care Bioinformatics Engineer Name Role Phone Linda Blancas MD Primary Care Provider [phone] Adolfo Carreno MD Unavailable [phone] Augustina Colin MD PhD Unavailable Unavailable Reason for Visit * Reason Comments Chemotherapy And Provider Visit * Episode Based Medications (Routine) - Authorization Not Required Specialty Diagnoses / Procedures Referred By [facility] Referred To Contact Diagnoses Malignant neoplasm of right female breast, unspecified estrogen receptor status, unspecified site of breast (HCC-CMS) Augustina Colin MD PhD [facility] Ep2 Infusion [address] [place] [address] Referral ID Status Reason Start Date Expiration Date Visits Requested Visits Authorized [id number] Authorization Not Required 10/12/2023 3 11 Encounter Details Date Type Department Care Team (Latest Contact Info) Description 11/08/2023 13:08 EDT Hospital Encounter [facility] Hematology & Oncology - Main [place] [address] [place], [place] [phone] Malignant neoplasm of right female breast, unspecified estrogen receptor status, unspecified site of breast (HCC-CMS) (Primary Dx); Osteopenia of necks of both femurs; Primary malignant neoplasm of breast with metastasis [...] Tablets by mouth as needed. 12/07/2023 mv-mn/C/glutamin/lysin /[id number] (A[place]ORNE, ASCORBATE SODIUM, ORAL) Take by mouth [...] documented in this encounter Progress Notes * Trinh Johnson, RN - 11/08/2023 1515 EDT Out-patient Chemotherapy Note Patient presents to clinic today for cycle # 2 , day # 1 of fam-trastuzumab deruxtecan (breast, lung) and cycle #14, day #1 of zoledronic acid q6 months treatment plans. Patient saw Dr. Dixie ARMSTRONG, and will receive treatment today, however pt will be reporting to the ED after infusion for acute, symptomatic abdominal ascites. Reviewed lab results CBC: Lab Results Component Value Date WBC 6.30 11/08/2023 HGB 10.9 (L) 11/08/2023 HCT 33.4 (L) 11/08/2023 PLT 288 11/08/2023 NEUTROABS 3.93 11/08/2023 Chemistry: Lab Results Component Value Date NA 137 11/08/2023 K 4.4 11/08/2023 BUN 17 11/08/2023 CREATININE 0.58 11/08/2023 CALCIUM 8.4 (L) 11/08/2023 MG 2.1 11/08/2023 LFT: Lab Results Component Value Date TBIL 1.5 (H) 11/08/2023 ALKPHOS 437 (H) 11/08/2023 AST 79 (H) 11/08/2023 ALT 39 (H) 11/08/2023 Parameters for today???s treatment met. Last ECHO 10/17/2023, EF 55-60%. Patient noted with single IVAD for access. IV flushed, site patent, unremarkable, and without redness and brisk blood return noted before and after chemotherapy infusion. Patient received pre-meds, 8mg PO dexamethasone, Aloxi (see MAR). Patient received fam-trastuzumab deruxtecan over 30 minutes. Patient received zoledronic acid over 20 minutes. Transfer of care to Parmjit Lozano RN @9580. Patient education: Patient verbally educated on medications administered today. Patient expressed understanding of education provided and no barriers identified Patient and , Nitish, encouraged to call clinic with any issues. Patient's next infusion appointment is 11/29/2023, reviewed with patient and . I was supervised by Dr. Easley who was present and immediately available in the office suite. documented in this encounter Miscellaneous Notes * Addendum Note - Oral Miller - 11/08/2023 1515 EDTEncounter addended by: Oral Miller on: 11/09/2023 11:16 Actions taken: Charge Capture section accepted documented in this encounter Plan of Treatment Upcoming Encounters Date Type Department Care Team (Late st Contact Info) Description 04/02/2024 10:30 EDT Appointment [facility] Interventional Radiology Unit [address] [place] [address] [phone] 04/02/2024 15:15 EDT Office Visit [facility] Surgical Oncology - Main [place] [address] [place], [place] [phone] Adolfo Carreno MD [address] [place] [address] 2 [place] [phone] 04/05/2024 9:30 EDT Telemedicine [facility] Palliative Care Services [address] [place] [address] [phone] Chichi Woods MD [address] [place] [phone] 04/11/2024 15:00 EDT Telemedicine [facility] Hematology & Oncology - [address] [phone] Alisson Carreon MD [address] [place] [address] 2 [place] [phone] 04/13/2024 13:30 EDT Appointment [facility] Hematology & Oncology - [address] [phone] 04/13/2024 14:00 EDT Appointment [facility] Hematology & Oncology - [address] [phone] 04/16/2024 10:00 EST Telemedicine [facility] - [facility] Palliative Care Services [address] [place] [address] [phone] Chichi Woods MD [address] [place] [phone] 04/24/2024 9:00 EST Appointment [facility] Radiology CT Outpatient - [address] [phone] 04/24/2024 11:00 EST Appointment [facility] Breast Imaging - [address] [address] 04/27/2024 12:00 EST Appointment [facility] Hematology & Oncology [address] [address] 05/02/2024 15:00 EST Telemedicine [facility] Hematology & Oncology [address] [phone] Alisson Carreon MD [address] [place] [address], Level 2 [place] [phone] 05/04/2024 10:15 EST Ancillary Procedure [facility] Cardiology - [place] [address] 05/04/2024 11:30 EST Appointment [facility] Hematology & Oncology [address] [address] 05/04/2024 12:00 EST Appointment [facility] Hematology & Oncology [address] [phone] 06/12/2024 13:00 EST Appointment [facility] Radiology CT [address] [phone] documented as of this encounter Procedures Procedure Name Priority Date/Time Associated Diagnosis Comments PROTIME Routine 11/08/2023 16:01 EDT documented in this encounter Results * (ABNORMAL) PROTIME (11/08/2023 16:01 EDT) I.N.R. 1.1 0.9 - 1.1 Ratio 11/08/2023 16:36 EDT [facility] Pro Time 12.9(H) 9.7 - 12.8 secs 11/08/2023 16:36 EDT [facility] Blood VENOUS BLOOD / Unknown Venipuncture / Unknown 11/08/2023 16:01 EDT 11/08/2023 16:09 EDT Narrative [facility] - 11/08/2023 16:36 EDT Moderate Intensity Coumadin INR = 2.0-3.0 Adjustments in anticoagulant therapy dose should be based on the INR and NOT on the Protime. Augustina Colin MD PhD HEMATOLOGY & PF4 ORD ERABLES [facility] [address] [place] [address] documented in this encounter Visit Diagnoses Diagnosis Malignant neoplasm of right female breast, unspecified estrogen receptor status, unspecified site of breast (HCC-CMS)- Primary Osteopenia of necks of both femurs Primary malignant neoplasm of breast with metastasis (HCC-CMS) documented in this encounter Administered Medications Inactive Administered Medications - up to 3 most recent administrations Medication Order MAR Action Action Date Dose Rate Site dexAMETHasone (DECADRON) tablet 8 mg 8 mg, oral, NOW X1, 1 dose, On Tue11/08/23 at 1545, Routine Given 11/08/2023 15:35 EDT 8 mg dextrose 5 % (D5W) infusion intravenous, PRN, Starting on Tue11/08/23 at 1523, Until Tue11/09/23 at 1522, Other Given 11/08/2023 15:32 EDT fam-trastuzumab deruxtecan-nxki (Enhertu) 331.6 mg in dextrose 5% (D5W) 100 mL IVPB 331.6 mg (rounded from 331.56 mg = 5.4 mg/kg ? 61.4 kg Treatment plan Recorded weight), intravenous, Administer over 90 Minutes, NOW X1, 1 dose, On Tue11/08/23 at 1615 Given 11/08/2023 16:10 EDT 331.6 mg palonosetron (ALOXI) injection 0.25 mg 0.25 mg, intravenous, NOW X1, 1 dose, On Tue11/08/23 at 1545, Routine Given 11/08/2023 15:36 EDT 0.25 mg zoledronic acid (ZOMETA) 4 mg/100 mL IVPB 4 mg 4 mg, intravenous, Administer over 20 Minutes, NOW X1, 1 dose, On Tue11/08/23 at 1630, Routine New Bag 11/08/2023 16:55 EDT 4 mg documented in this encounter Orders Medications Ordered That Vj ht Not Have Been Administered Count Last Ordered Date First Ordered Date sodium chloride 0.9 % (flush) flush 20 mL 2 11/08/2023 sodium chloride 0.9 % (NS) infusion 1 11/07 Lab Orders Without Results Count Last Ordered D ate First Ordered Date COMPREHENSIVE METABOLIC PANE L (ONCOLOGY USE ONLY-INC MG) 1 11/08/2023 Appointment Requests Count Last Ordered Date Fi rst Ordered Date ONCBCN INFUSION APPOINTMENT REQUEST 1 11/07 ONCBCN INFUSION APPOINTMENT REQUEST - CALCULATED 1 11/08/2023 documented in this encounter Care Teams Bioinformatics Engineer Relationship Specialty Start Date End Date Linda Blancas MD [facility] [address] [place] [address] PCP - General 01/06/11 Adolfo Carreno MD [address] [place] [phone] General Surgery 04/26/19 Augustina Colin MD PhD [address] [phone] Medical Oncology 04/26/19 documented as of this encounter
--- OUTSIDE RECORDS SUMMARY | 2024-03-20 14:40 | XMS_ITS | Encounter Summary ---
Author Organization [facility] Address [address] [place] [address] Care Team Providers Care Director Of Personnel Name Role Phone Linda Blancas MD Primary Care Provider [phone] Adolfo Carreno MD Unavailable [phone] Augustina Colin MD PhD Unavailable Unavailable Reason for Referral * Vascular Lab (Routine) - Authorization Not Required Specialty Diagnoses / Procedures [facility] Referred To Contact Diagnoses Edema of left upper arm Malignant neoplasm of breast, stage 4, unspecified laterality (HCC-CMS) Procedures US UPPER VENOUS DUPLEX Nadeen Blood PA-C [address] [place] [phone] [facility] Vascular Lab Referral ID Status Reason Start Date Expiration Date Visits Requested Visits Authorized [id number] Authorization Not Required 11/03/2023 1 1 Encounter Details Date Type Department Care Team (Late st Contact Info) Description 11/03/2023 Orders Only [facility] Hematology & Oncology - [address] [phone] Nadeen Blood PA-C [address] [place] [phone] Edema of left upper arm (Primary Dx); Malignant neoplasm of breast, stage 4, unspecified [...] Contact Info) Description 04/02/2024 10:30 EDT Appointment [facility] Interventional Radiology Unit [address] [place], [place] [phone] 04/02/2024 15:15 EDT Office Visit [facility] Surgical Oncology - [facility] [address] [place], [place] [phone] Adolfo Carreno MD 111 [facility], Level 2 [place] [phone] 04/05/2024 9:30 EDT Telemedicine [facility] - [facility] Palliative Care Services [address] [place], [place] [address] Chichi Woods MD [address] [place] [phone] 04/11/2024 15:00 EDT Telemedicine [facility] Hematology & Oncology - [address] [phone] Alisson Carreon MD [address] [place] [address], Level [address] [place] [phone] 04/13/2024 13:30 EDT Appointment [facility] Hematology & Oncology [address] [phone] 04/13/2024 14:00 EDT Appointment [facility] Hematology & Oncology [address] [phone] 04/16/2024 10:00 EST Telemedicine [facility] - [facility] Palliative Care Services [address] [place] [address] [phone] Chichi Woods MD [address] [place] [phone] 04/24/2024 9:00 EST Appointment [facility] Radiology CT Outpatient - [address] [phone] 04/24/2024 11:00 EST Appointment [facility] Breast Imaging - [address] [phone] 04/27/2024 12:00 EST Appointment [facility] Hematology & Oncology - [address] [phone] 05/02/2024 15:00 EST Telemedicine [facility] Hematology & Oncology - [address] [phone] Alisson Carreon MD 111 [facility], [facility], Level 2 [place] [phone] 05/04/2024 10:15 EST Ancillary Procedure [facility] Cardiology - [address] [place], [place] [phone] 05/04/2024 11:30 EST Appointment [facility] Hematology & Oncology - [facility] [address] [place], [place] [address] 05/04/2024 12:00 EST Appointment [facility] Hematology & Oncology [address] 140381 06/12/2024 13:00 EST Appointment [facility] Radiology CT - [facility] [address] [place], [place] [phone] documented as of this encounter Results * US UPPER VENOUS [...] Visit Diagnoses Diagnosis Edema of left upper arm- Primary Malignant neoplasm of breast, stage 4, unspecified laterality (HCC-CMS) Edema of left upper arm Malignant neoplasm of breast, stage 4, unspecified laterality (HCC-CMS) documented in this encounter Care Teams Director Of Personnel Relationship Specialty Start Date End Date Linda Blancas MD [facility] [address] [place] [address] PCP - General 01/06/11 Adolfo Carreno MD [address] [place] [address], [facility] 2 [place] [phone] General Surgery 04/26/19 Augustina Colin MD PhD [address] [place] [address] 2 [place] [phone] Medical Oncology 04/26/19 documented as of this encounter
--- OUTSIDE RECORDS SUMMARY | 2024-03-20 14:40 | XMS_ITS | Encounter Summary ---
Author Organization [facility] Address [address] [place] [address] Care Team Providers Care Manager Presentation Name Role Phone Linda Blancas MD Primary Care Provider [phone] Adolfo Carreno MD Unavailable [phone] Augustina Colin MD PhD Unavailable Unavailable Encounter Details Date Type Department Care Team (Late st Contact Info) Description 11/04/2023 Orders Only [facility] Cancer Center Hematology & Oncology - [facility] [address] [place], [place] [phone] Augustina Colin, PhD Social History Tobacco Use [...] Description 04/02/2024 10:30 EDT Appointment [facility] Interventional Radiology Unit [address] [place] [address] [phone] 04/02/2024 15:15 EDT Office Visit [facility] Surgical Oncology - [address] [phone] Adolfo Carreno MD [address] [place] [phone] 04/05/2024 9:[address] [facility] - [facility] Palliative Care Services [address] [place] [address] [phone] Chichi Woods MD [address] [place] [phone] 04/11/2024 15:00 EDT Telemedicine [facility] Hematology & Oncology [address] [phone] Alisson Carreon MD [address] [place] [address] [phone] 04/13/2024 13:30 EDT Appointment [facility] Hematology & Oncology [address] [phone] 04/13/2024 14:00 EDT Appointment [facility] Hematology & Oncology [address] [phone] 04/16/2024 10:[address] [facility] - [facility] Palliative Care Services [address] [place] [address] [phone] Chichi Woods MD [address] [place] [address], [address] [phone] 04/24/2024 9:00 EST Appointment [facility] Radiology CT Outpatient - [address] [phone] 04/24/2024 11:00 EST Appointment [facility] Breast Imaging - [facility] [address] [place], [place] [address] 04/27/2024 12:00 EST Appointment [facility] Hematology & Oncology - [address] [phone] 05/02/2024 15:00 EST Telemedicine [facility] Hematology & Oncology - [address] [address] Alisson Carreon MD [address] [place] [address], [facility], Level 2 [place] [phone] 05/04/2024 10:15 EST Ancillary Procedure [facility] Cardiology - [address] [place], [place] [phone] 05/04/2024 11:30 EST Appointment [facility] Hematology & Oncology - [address] [phone] 05/04/2024 12:00 EST Appointment [facility] Hematology & Oncology [address] [phone] 06/12/2024 13:00 EST Appointment [facility] Radiology CT - [address] [phone] documented as of this encounter Visit Diagnoses Not on filedocumented in this encounter Additional Health Concerns Infection Onset Date Last Indicated Resolved Time R/O COVID-19 12/12/2023 12/12/2023 12/12/2023 15:3 5 EDT R/O COVID-19 01/08/2024 01/08/2024 01/08/2024 18:2 6 EDT R/O COVID-19 01/16/2024 01/16/2024 01/16/2024 17:5 0 EDT documented as of this encounter Care Teams Manager Presentation Relationship Specialty Start Date End Date Linda Blancas MD [facility] [address] [place] [address] PCP - General 01/06/11 Adolfo Carreno MD [address] [place] [address] 2 [place] [phone] General Surgery 04/26/19 Augustina Colin MD PhD [address] [place] [address], [facility] 2 [place] [phone] Medical Oncology 04/26/19 documented as of this encounter
--- OUTSIDE RECORDS SUMMARY | 2024-03-20 14:41 | XMS_ITS | Encounter Summary ---
Author Organization [facility] Address [address] [place] [address] Care Team Providers Care Fountain Roller Assembler Name Role Phone Linda Blancas MD Primary Care Provider [phone] Adolfo Carreno MD Unavailable [phone] Augustina Colin MD PhD Unavailable Unavailable Reason for Visit * Reason Onset Date Comments Follow-up 10/07/2023 Encounter Details Date Type Department Care Team (Late st Contact Info) Description 10/07/2023 Telephone [facility] Cancer Center Hematology & Oncology - Main [place] [address], [place] [phone] Zulma Acevedo RN Follow-up Social History Tobacco [...] Telephone Encounter - Zulma Acevedo RN - 10/07/2023 1018 EDT Called patient to check in on bowel symptoms (constipation, bloating, discomfort). Also calling to update patient on plan for labs on 10/10. No answer, left VM. Will try again later today. Patient also sent [employer] message to remind patient to have labs drawn prior to 10/10 appointment. documented in this encounter Plan of Treatment Upcoming Encounters Date Type Department Care Team (Late st Contact Info) Description 04/02/2024 10:30 EDT Appointment [facility] Interventional Radiology Unit [address], [place] [phone] 04/02/2024 15:15 EDT Office Visit [facility] Surgical Oncology - [address] 053411 Adolfo Carreno MD 111 [facility], [facility] [address] [place] [phone] 04/05/2024 9:30 EDT Telemedicine [facility] - [facility] [address], [place] 934681 Chichi Woods MD [address] [phone] 04/11/2024 15:00 EDT Telemedicine [facility] Hematology & Oncology - [facility] [address], [place] [phone] Alisson Carreon MD [address] [place] [address], [facility] [address] [place] [phone] 04/13/2024 13:30 EDT Appointment [facility] Hematology & Oncology - [address] 147591 04/13/2024 14:00 EDT Appointment [facility] Hematology & Oncology - [address] 348941 04/16/2024 10:00 EST Telemedicine [facility] - [facility] [address] [place] [address] [phone] Chichi Woods MD [address] [place] [address], [address] [phone] 04/24/2024 9:00 EST Appointment [facility] Radiology CT Outpatient - [address] [id number] 04/24/2024 11:00 EST Appointment [facility] Breast Imaging - [facility] [address] 950101 04/27/2024 12:00 EST Appointment [facility] Hematology & Oncology - [address] 746621 05/02/2024 15:00 EST Telemedicine [facility] Hematology & Oncology - [address] 305651 Alisson Carreon MD [address] [place] [address], [facility] [address] [place] [phone] 05/04/2024 10:15 EST Ancillary Procedure [facility] Cardiology - [address] [place], [place] [phone] 05/04/2024 11:30 EST Appointment [facility] Cancer Center Hematology & Oncology - [address] [address] 05/04/2024 12:00 EST Appointment [facility] Hematology & Oncology - [address] [address] 06/12/2024 13:00 EST Appointment [facility] Center Radiology CT - [address] [address] documented as of this encounter Visit Diagnoses Not on filedocumented in this encounter Care Teams Fountain Roller Assembler Relationship Specialty Start Date End Date Linda Blancas MD [facility] [address] [place] [address] PCP - General 01/06/11 Adolfo Carreno MD [address] [place] [phone] General Surgery 04/26/19 Augustina Colin MD PhD [address] [place] [phone] Medical Oncology 04/26/19 documented as of this encounter
--- OUTSIDE RECORDS SUMMARY | 2024-03-20 14:41 | XMS_ITS | Encounter Summary ---
Author Organization [facility] Address [address] [place] [address] Care Team Providers Care Ac/Dc Rewinder Name Role Phone Linda Blancas MD Primary Care Provider [phone] Adolfo Carreno MD Unavailable [phone] Augustina Colin MD PhD Unavailable Unavailable Reason for Visit * Reason Onset Date Comments Labs Only 10/13/2023 Encounter Details Date Type Department Care Team (Late st Contact Info) Description 10/13/2023 Orders Only [facility] Cancer Center Hematology & Oncology - Main [place] [address], [place] [phone] Zulma Acevedo RN Malignant neoplasm of right female breast, unspecified estrogen receptor status, unspecified site of breast (HCC-CMS) (Primary Dx); Encounter for long-term current use of medication Social History Tobacco Use Types Packs/Day Years [...] Progress Notes * Zulma Acevedo, RN - 10/13/2023 1005 EDT Hep B orders placed to add on for existing specimen for upcoming treatment. documented in this encounter Plan of Treatment Upcoming Encounters Date Type Department Care Team (Late st Contact Info) Description 04/02/2024 10:30 EDT Appointment [facility] Interventional Radiology Unit [address] [place] [address] [phone] 04/02/2024 15:15 EDT Office Visit [facility] Surgical Oncology - [address] [phone] Adolfo Carreno MD [address] [place] [address], [facility] [address] [place] [phone] 04/05/2024 9:30 EDT Telemedicine [facility] - [facility] Palliative Care Services [address] [place], [place] 563371 Chichi Woods MD [address] [place] [address], [address] [place] [phone] 04/11/2024 15:00 EDT Telemedicine [facility] Hematology & Oncology - [address] 092341 Alisson Carreon MD [address] [place], [place] [address]on, [address] [place] [phone] 04/13/2024 13:30 EDT Appointment [facility] Hematology & Oncology [address] 094481 04/13/2024 14:00 EDT Appointment [facility] Hematology & Oncology - [address] 802161 04/16/2024 10:00 EST Telemedicine [facility] - [facility] Palliative Care Services [address] [place] [address] [phone] Chichi Woods MD [address] [place] [address], [address] [phone] 04/24/2024 9:00 EST Appointment [facility] Radiology CT Outpatient - [address] 398411 04/24/2024 11:00 EST Appointment [facility] Breast Imaging - [facility] S [address] 322371 04/27/2024 12:00 EST Appointment [facility] Hematology & Oncology [address] 825361 05/02/2024 15:00 EST Telemedicine [facility] Hematology & Oncology - [address] 226291 Alisson Carreon MD [address] [place] [address], Level [address] [place] [phone] 05/04/2024 10:15 EST Ancillary Procedure [facility] Cardiology - [address] [place], [place] [phone] 05/04/2024 11:30 EST Appointment [facility] Hematology & Oncology - [address] [address] 05/04/2024 12:00 EST Appointment [facility] Cancer Center Hematology & Oncology - [address] [address] 06/12/2024 13:00 EST Appointment [facility] Radiology CT - [address] [phone] documented as of this encounter Results * HEPATITIS B PROFILE (10/11/2023 10:17 EDT) Hep B Surface Ag Negative Negative 10/13/19 11:29 EDT [facility] Hep B Surface Ab, Quantitative <3.1 See Note mIU/mL 10/13/2023 11:29 EDT [facility] Comment: Reference Range for Hep B Surface Ab, Quant: Positive: >= 10.0 mIU/mL Negative: ??< 10.0 mIU/mL Patient is presumed to not be immune to infection with Hepatitis B Virus. Hep B Surface Ab, Qualitative Negative See Note 10/13/2023 11:29 EDT [facility] Comment: Reference Range for Hep B Surface Ab, Qual: Unvaccinated: ??Negative Vaccinated: ??Positive Hepatitis B Core Ab, Total Negative Negative 10/13/2023 11:29 EDT [facility] Blood VENOUS BLOOD / Unknown Venipuncture / Unknown 10/11/2023 10:17 EDT 10/11/2023 10:23 EDT Augustina Colin MD PhD CHEMISTRY & BLOOD GA S ORDERABLES [facility] [address] [place], [place] 519[address] documented in this encounter Visit Diagnoses Diagnosis Malignant neoplasm of right female breast, unspecified estrogen receptor status, unspecified site of breast (HCC-CMS)- Primary Encounter for long-term current use of medication documented in this encounter Care Teams Ac/Dc Rewinder Relationship Specialty Start Date End Date Linda Blancas MD [facility] [address] [place] [address] PCP - General 01/06/11 Adolfo Carreno MD [address] [place] [phone] General Surgery 04/26/19 Augustina Colin MD PhD [address] [place] [phone] Medical Oncology 04/26/19 documented as of this encounter
--- OUTSIDE RECORDS SUMMARY | 2024-03-20 14:41 | XMS_ITS | Encounter Summary ---
Author Organization [facility] Address [address] [place] [address] Care Team Providers Care Purchasing Contracting Clerk Name Role Phone Linda Blancas MD Primary Care Provider [phone] Adolfo Carreno MD Unavailable [phone] Augustina Colin MD PhD Unavailable Unavailable Reason for Referral * Radiology Services (Routine/Next Available) - Authorization Not Required Specialty Diagnoses / Procedures Referred By [facility] t Referred To Contact Diagnoses Malignant neoplasm of right female breast, unspecified estrogen receptor status, unspecified site of breast (HCC-CMS) Procedures IR CHEST PORT 5 YRS OR OLDER Augustina Colin MD PhD [facility] Referral ID Status Reason Start Date Expiration Date Visits Requested Visits Authorized [id number] Authorization Not Required 10/13/2023 1 1 Encounter Details Date Type Department Care Team (Late st Contact Info) Description 10/13/2023 Orders Only [facility] Cancer Center Hematology & Oncology - Main [place] [address] [place], [place] 377291 Zulma Acevedo, [place] Malignant neoplasm of right female breast, [...] Progress Notes * Zulma Acevedo RN - 10/13/2023 124 EDT Order placed for Port placement per Dr. Colin. documented in this encounter Plan of Treatment Upcoming Encounters Date Type Department Care Team (Late st Contact Info) Description 04/02/2024 10:30 EDT Appointment [facility] Interventional Radiology Unit [address] [place] [address] [phone] 04/02/2024 15:15 EDT Office Visit [facility] Surgical Oncology - [facility] [address] [place], [place] 013181 Adolfo Carreno MD 111 [facility], [facility], [address] [place] [phone] 04/05/2024 9:30 EDT Telemedicine [facility] - [facility] Palliative Care Services [address] [place], [place] 774851 Chichi Woods MD 111 [facility], [address] [place] [phone] 04/11/2024 15:00 EDT Telemedicine [facility] Hematology & Oncology - [address] [phone] Alisson Carreon MD [address] [place] [address] 2 [place] [phone] 04/13/2024 13:30 EDT Appointment [facility] Hematology & Oncology [address] 137061 04/13/2024 14:00 EDT Appointment [facility] Hematology & Oncology [address] 292841 04/16/2024 10:00 EST Telemedicine [facility] - [facility] Palliative Care Services [address] [place] [address] 932701 Chichi Woods MD [address] [place] [address] 262 [place] [phone] 04/24/2024 9:00 EST Appointment [facility] Radiology CT Outpatient - [address] 131231 04/24/2024 11:00 EST Appointment [facility] Breast Imaging - [address] 359171 04/27/2024 12:00 EST Appointment [facility] Hematology & Oncology - [address] 467251 05/02/2024 15:00 EST Telemedicine [facility] Hematology & Oncology - [address] 138001 Alisson Carreon MD [address] [place] [address] 2 [place] [phone] 05/04/2024 10:15 EST Ancillary Procedure [facility] Cardiology - [address] [place] [address] 05/04/2024 11:30 EST Appointment [facility] Hematology & Oncology [address] [id number] 05/04/2024 12:00 EST Appointment [facility] Hematology & Oncology [address] 071631 06/12/2024 13:00 EST Appointment [facility] Radiology CT [address] 311061 documented as of this encounter Results * IR CHEST PORT 5 YRS OR OLDER (11/03/2023 15:51 EDT) Anatomical Region Laterality Modality Chest N/A X-Ray Angiograph y 11/04/2023 18:0 8 EDT Impressions 11/04/2023 18:08 EDT Right single lumen chest port placement using ultrasound and fluoroscopic guidance. [id number] Narrative 11/04/2023 18:08 EDT CHEST PORT HISTORY: [...] utilized for cutaneous antisepsis. Resulting Agency Comment [id number] Procedure Note Scriver, David Rowley MD - [...] chest port placement using ultrasound and fluoroscopicguidance. [id number] Augustina Colin MD PhD IMG IR ORDERABLES documented in this encounter Visit Diagnoses Diagnosis Malignant neoplasm of right female breast, unspecified estrogen receptor status, unspecified site of breast (HCC-CMS)- Primary Malignant neoplasm of right female breast, unspecified estrogen receptor status, unspecified site of breast (HCC-CMS) Primary malignant neoplasm of breast with metastasis (HCC-CMS) documented in this encounter Care Teams Purchasing Contracting Clerk Relationship Specialty Start Date End Date Linda Blancas MD [address] [place] [address] 30 [place] [address] PCP - General 01/06/11 Adolfo Carreno MD [address] [place] [phone] General Surgery 04/26/19 Augustina Colin MD PhD [address] [place] [phone] Medical Oncology 04/26/19 documented as of this encounter
--- OUTSIDE RECORDS SUMMARY | 2024-03-20 14:41 | XMS_ITS | Encounter Summary ---
Author Organization [facility] Address [address] [place] [address] Care Team Providers Care Trash Collector Name Role Phone Linda Blancas MD Primary Care Provider [phone] Adolfo Carreno MD Unavailable [phone] Augustina Colin MD PhD Unavailable Unavailable Reason for Visit * Reason Onset Date Comments Appointment Related 10/24/2023 Encounter Details Date Type Department Care Team (Late st Contact Info) Description 10/24/2023 Telephone [facility] Cancer Center Hematology & Oncology - Main [place] [address] [place], [place] [phone] Augustina Colin, PhD Appointment Related Social History [...] * Telephone Encounter - Sandhya Estrada - 10/24/2023 1617 EDT Called patient regarding upcoming appt changes. Cancelled next 2 Zometa infusions on Shep 4. Patient will be getting tx in the Cancer Center within1-2 days of those appts. Linked 11/09 Zometa to 11/07 infusion. Updated message on 01/29 Zometa to give with 01/30 infusion in clinic. LMOM. Left PAC# documented in this encounter Plan of Treatment Upcoming Encounters Date Type Department Care Team (Late st Contact Info) Description 04/02/2024 10:30 EDT Appointment [facility] Interventional Radiology Unit [address] [place], [place] 1265[address] 04/02/2024 15:15 EDT Office Visit [facility] Surgical Oncology - [address] 401461 Adolfo Carreno MD 111 [facility], Level 2 [place] [phone] 04/05/2024 9:30 EDT Telemedicine [facility] - [facility] Palliative Care Services [address] [place], [place] [phone] Chichi Woods MD 111 [facility], [address] [phone] 04/11/2024 15:00 EDT Telemedicine [facility] Hematology & Oncology - [facility] [address] [place], [place] 218201 Alisson Carreon MD [address] [place] [address], [facility] 2 [place] [phone] 04/13/2024 13:30 EDT Appointment [facility] Hematology & Oncology - [address] [phone] 04/13/2024 14:00 EDT Appointment [facility] Hematology & Oncology - [address] 530551 04/16/2024 10:00 EST Telemedicine [facility] - [facility] Palliative Care Services [address] [place] [address] [phone] Chichi Woods MD [address] [place] [address], [address] [phone] 04/24/2024 9:00 EST Appointment [facility] Radiology CT Outpatient - [address] 460741 04/24/2024 11:00 EST Appointment [facility] Breast Imaging - [facility] S [address] 141581 04/27/2024 12:00 EST Appointment [facility] Hematology & Oncology - [address] 416701 05/02/2024 15:00 EST Telemedicine [facility] Hematology & Oncology - [address] 753421 Alisson Carreon MD [address] [place] [address], [facility] 2 [place] [phone] 05/04/2024 10:15 EST Ancillary Procedure [facility] Cardiology - [address] [place], [place] [phone] 05/04/2024 11:30 EST Appointment [facility] [place] Hematology & Oncology [address] [address] 05/04/2024 12:00 EST Appointment [facility] Hematology & Oncology [address] [address] 06/12/2024 13:00 EST Appointment [facility] Radiology CT - [address] [address] documented as of this encounter Visit Diagnoses Not on filedocumented in this encounter Care Teams Trash Collector Relationship Specialty Start Date End Date Linda Blancas MD [facility] [address] [place] [address] PCP - General 01/06/11 Adolfo Carreno MD [address] [place] [phone] General Surgery 04/26/19 Augustina Colin MD PhD [address] [place] [phone] Medical Oncology 04/26/19 documented as of this encounter
--- OUTSIDE RECORDS SUMMARY | 2024-03-20 14:41 | XMS_ITS | Encounter Summary ---
Author Organization [facility] Address [address] [place] [address] Care Team Providers Care Crap Game Box Person Name Role Phone Linda Blancas MD Primary Care Provider Adolfo Carreno MD Unavailable [phone] Augustina Colin MD PhD Unavailable Unavailable Reason for Referral * Consult (Urgent) - Receiving Office to Obtain Authorization Specialty Diagnoses / Procedures Referred By Contact Referred To Contact Gastroenterology and Hepatology Diagnoses Primary malignant neoplasm of breast with metastasis (HCC-CMS) Augustina Colin MD PhD [facility] [address] [place] [address] Referral ID Status Reason Start Date Expiration Date Visits Requested Visits Authorized [id number] Receiving Office to Obtain Authorization Specialty Services Required 10/18/2023 1 1 Question Answer Reason for Request: Cancer, Gastric Dysmotility To the best of your knowledge, does this patient have known or suspected inflammatory bowel disease (Crohn's disease, ulerative colitis, indeterminate colitis)? No To the best of your knowledge, does this patient have any of the following symptoms or other clinical findings? (check all that apply) Bloody diarrhea or GI bleeding Comments Pt is having black stools, constipation, ascites Reason for Visit * Reason Onset Date Comments Referral Request 10/18/2023 Encounter Details Date Type Department Care Team (Late st Contact Info) Description 10/18/2023 Orders Only [facility] Hematology & Oncology - [facility] [address] [place] [address] Zulma Acevedo RN Primary malignant neoplasm of [...] Progress Notes * Zulma Acevedo RN - 10/18/2023 1640 EDT GI Consult submitted, reason being gastric dysmotility, per Dr. Colin request. documented in this encounter Plan of Treatment Upcoming Encounters Date Type Department Care Team (Late st Contact Info) Description 04/02/2024 10:30 EDT Appointment [facility] Interventional Radiology Unit [address] [place] [address] 04/02/2024 15:15 EDT Office Visit [facility] Surgical Oncology - [facility] [address] [place], [place] 106141 Adolfo Carreno MD [address] [place] [address] [address] [place] [phone] 04/05/2024 9:30 EDT Telemedicine [facility] Palliative Care Services [address] [place] [address] Chichi Woods MD [address] [place] [phone] 04/11/2024 15:00 EDT Telemedicine [facility] Hematology & Oncology - [address] 133061 Alisson Carreon MD [address] [place] [address] 2 [place] [phone] 04/13/2024 13:30 EDT Appointment [facility] Hematology & Oncology - [address] 947211 04/13/2024 14:00 EDT Appointment [facility] Hematology & Oncology - [address] 368251 04/16/2024 10:00 EST Telemedicine [facility] Palliative Care Services [address] [place] [address] 428151 Chichi Woods MD [address] [place] [address] [phone] 04/24/2024 9:00 EST [facility]ointment [facility] Radiology CT Outpatient - [address] [id number] 04/24/2024 11:00 EST Appointment [facility] Breast Imaging - [address] [place] [address] 04/27/2024 12:00 EST Appointment [facility] Hematology & Oncology - [address] [address] 05/02/2024 15:00 EST Telemedicine [facility] Hematology & Oncology [address] 089921 Alisson Carreon MD [address] [place] [address] [phone] 05/04/2024 10:15 EST Ancillary Procedure [facility] Cardiology - [address] [place] [address] 05/04/2024 11:30 EST Appointment [facility] Hematology & Oncology - [address] 234851 05/04/2024 12:00 EST Appointment [facility] Hematology & Oncology [address] 519701 06/12/2024 13:00 EST Appointment [facility] Radiology CT - [address] 052681 Scheduled Referrals Name Type Priority Associated Diagnoses Order Schedule AMB CONS/FOLLOW UP GASTROENTEROLOGY Outpatient Referral Urgent Primary malignant neoplasm of breast with metastasis (HCC-CMS) Expected: 10/20/2023 (Approximate), Expires: 10/17/2024 documented as of this encounter Visit Diagnoses Diagnosis Primary malignant neoplasm of breast with metastasis (HCC-CMS)- Primary documented in this encounter Care Teams Crap Game Box Person Relationship Specialty Start Date End Date Linda Blancas MD [address] [place] [address] 30 [place], [place] 111102 PCP - General 01/06/11 Adolfo Carreno MD [address] [place] [address] [phone] General Surgery 04/26/19 Augustina Colin MD PhD [address] [place] [address], [facility] 2 [place] [phone] Medical Oncology 04/26/19 documented as of this encounter
--- OUTSIDE RECORDS SUMMARY | 2024-03-20 14:41 | XMS_ITS | Encounter Summary ---
Author Organization [facility] Address [address] [place] [address] Care Team Providers Care Janitorial Cleaner Name Role Phone Linda Blancas MD Primary Care Provider [phone] Adolfo Carreno MD Unavailable [phone] Augustina Colin MD PhD Unavailable Unavailable Reason for Visit * Reason Onset Date Comments Appointment Related 10/13/2023 Encounter Details Date Type Department Care Team (Late st Contact Info) Description 10/13/2023 Telephone [facility] Pulmonology & Critical Care - [address] [phone] Jackie Leach DO 111 [facility] [address] [place] [phone] Appointment Related Social History Tobacco Use Types [...] encounter Miscellaneous Notes * Telephone Encounter - Pavan Eddy - 10/13/2023 1053 EDT Phoned Pt Sunshine Pleitez and left voice message that we've scheduled a PFT ([facility]) and Urgent New Patient visit with Dr Leach on 11/23/2023 at 0800 and 0900 respectively. Asked Pt to return call to confirm this date and time were acceptable. documented in this encounter Plan of Treatment Upcoming Encounters Date Type Department Care Team (Late st Contact Info) Description 04/02/2024 10:30 EDT Appointment [facility] Interventional Radiology Unit [address] [place] [address] [phone] 04/02/2024 15:15 EDT Office Visit [facility] Surgical Oncology - [facility] [address] [place], [place] 836[address] Adolfo Carreno MD 111 [facility], Level [address] [place] [phone] 04/05/2024 9:30 EDT Telemedicine [facility] Palliative Care Services [address] [place], [place] [phone] Chichi Woods MD 111 [facility], [address] [phone] 04/11/2024 15:00 EDT Telemedicine [facility] Hematology & Oncology - [address] [phone] Alisson Carreon MD [address] [place] [address], [facility] [address] [place] [phone] 04/13/2024 13:30 EDT Appointment [facility] Hematology & Oncology - [address] [phone] 04/13/2024 14:00 EDT Appointment [facility] Hematology & Oncology [address] 130691 04/16/2024 10:00 EST Telemedicine [facility] - [facility] Palliative Care Services [address] [place] [address] Chichi Woods MD [address] [place] [address] [phone] 04/24/2024 9:00 EST Appointment [facility] Radiology CT Outpatient - [address] [id number] 04/24/2024 11:00 EST Appointment [facility] Breast Imaging - [facility] [address] 581941 04/27/2024 12:00 EST Appointment [facility] Hematology & Oncology - [address] [phone] 05/02/2024 15:00 EST Telemedicine [facility] Hematology & Oncology - [address] [phone] Alisson Carreon MD [address] [place] [address], [facility] [address] [place] [phone] 05/04/2024 10:15 EST Ancillary Procedure [facility] Cardiology - [place] [address] [place] [address] 05/04/2024 11:30 EST Appointment [facility] Hematology & Oncology [address] [address] 05/04/2024 12:00 EST Appointment [facility] Hematology & Oncology [address] 195971 06/12/2024 13:00 EST Appointment [facility] Radiology CT - [address] [phone] documented as of this encounter Visit Diagnoses Not on filedocumented in this encounter Care Teams Janitorial Cleaner Relationship Specialty Start Date End Date Linda Blancas MD [facility] [address] [place] [address] PCP - General 01/06/11 Adolfo Carreno MD [address] [place] [address], [facility] [address] [place] [phone] General Surgery 04/26/19 Augustina Colin MD PhD [address] [place] [address] [address] [place] [phone] Medical Oncology 04/26/19 documented as of this encounter
--- OUTSIDE RECORDS SUMMARY | 2024-03-20 14:41 | XMS_ITS | Encounter Summary ---
Author Organization Health system Address [address] [place] [address] Care Team Providers Care Special Events Director Name Role Phone Linda Blancas MD Primary Care Provider Adolfo Carreno MD Unavailable [phone] Augustina Colin MD PhD Unavailable Unavailable Reason for Visit * Reason Onset Date Comments Follow-up 10/13/2023 Encounter Details Date Type Department Care Team (Late st Contact Info) Description 10/13/2023 Telephone [facility] Hematology & Oncology - [facility] [place] [address] [place], [place] [phone] Zulma Acevedo RN Follow-up Social History Tobacco [...] Telephone Encounter - Zulma Acevedo RN - 10/13/2023 1040 EDT 1039am: Called pt to discuss how her bowels were doing and to answer any questions she had about Enhertu start. No answer, left VM. 1113am: Pt returned calls. PFT test + trimmer hand on 11/22, booked with Dr. Leach, also on cancellation list. Pt has nonstop cough, provider aware. Pt aware if needs additional help prior to apt toreach out to us or go to ER for immediate concerns. Pt was curious if her port placement was scheduled. This RN does not see orders/apt for port placement. Will make provider aware of pt request for port. Discussed treatment duration at pt request. Pt made aware that further discussion and teach will bediscussed when appointments are scheduled. Discussed patient's bowels at this time as well. Pt reports she is moving her bowels regularly, taking daily, 3 colace, 1 senna, and 1 dose miralax. Pt reports some stomach pains, prior to BM. She isable to eat + drink well, but is still feeling some distention in her abdomen. She feels between the coughing and bowel issues to have caused some abdominal muscles to be strained and pulled. She feels that her stomach is more firm at the top and soft at the bottom, denies any signs of blatant herniation, but states she is normally very flat or concave and soft. Provider updated. documented in this encounter Plan of Treatment Upcoming Encounters Date Type Department Care Team (Late st Contact Info) Description 04/02/2024 10:30 EDT Appointment [facility] Interventional Radiology Unit [address] [place] [address] [phone] 04/02/2024 15:15 EDT Office Visit [facility] Surgical Oncology - [address] [phone] Adolfo Carreno MD [address] [place] [address] [phone] 04/05/2024 9:30 EDT Telemedicine [facility] Palliative Care Services [address] [place] [address] [phone] Chichi Woods MD [address] [place] [phone] 04/11/2024 15:00 EDT Telemedicine [facility] Hematology & Oncology - [address] [address] Alisson Carreon MD [address] [place] [address] [phone] 04/13/2024 13:30 EDT Appointment [facility] Hematology & Oncology [address] [phone] 04/13/2024 14:00 EDT Appointment [facility] Hematology & Oncology - [address] [address] 04/16/2024 10:00 EST Telemedicine [facility] Palliative Care Services [address] [place] [address] [phone] Chichi Woods MD [address] [place] [address] [phone] 04/24/2024 9:00 EST Appointment [facility] Radiology CT Outpatient - [address] [address] 04/24/2024 11:00 EST Appointment [facility] Breast Imaging - [facility] [address] [place], [place] 982471 04/27/2024 12:00 EST Appointment [facility] Hematology & Oncology [address] [address] 05/02/2024 15:00 EST Telemedicine [facility] Hematology & Oncology [address] [phone] Alisson Carreon MD [address] [place] [address], [facility] 2 [place] [phone] 05/04/2024 10:15 EST Ancillary Procedure [facility] Cardiology - [place] [address] [place] [address] 05/04/2024 11:30 EST Appointment [facility] Hematology & Oncology - [address] 179291 05/04/2024 12:00 EST Appointment [facility] Hematology & Oncology [address] [phone] 06/12/2024 13:00 EST Appointment [facility] Radiology CT - [address] 207921 documented as of this encounter Visit Diagnoses Not on filedocumented in this encounter Care Teams Special Events Director Relationship Specialty Start Date End Date Linda Blancas MD [facility] [address] [place] [address] PCP - General 01/06/11 Adolfo Carreno MD [address] [place] [address], [facility] [address] [place] [phone] General Surgery 04/26/19 Augustina Colin MD PhD [address] [place] [address], [facility] [address] [place] [phone] Medical Oncology 04/26/19 documented as of this encounter
--- OUTSIDE RECORDS SUMMARY | 2024-03-20 14:41 | XMS_ITS | Encounter Summary ---
Author Organization [facility] Address [address] [place] [address] Care Team Providers Care Lgsw Name Role Phone Linda Blancas MD Primary Care Provider [phone] Adolfo Carreno MD Unavailable [phone] Augustina Colin MD PhD Unavailable Unavailable Reason for Referral * Radiology Services (Routine/Next Available) - Authorization Not Required Specialty Diagnoses / Procedures [facility] Referred To Contact Nuclear Medicine Diagnoses Primary malignant neoplasm of breast with metastasis (HCC-CMS) Procedures NM BONE WHOLE BODY Augustina Colin MD PhD [facility] Referral ID Status Reason Start Date Expiration Date Visits Requested Visits Authorized [id number] Authorization Not Required 10/21/2023 1 1 Reason for Visit * Reason Onset Date Comments Follow-up 10/21/2023 C1D1 72hr check in Encounter Details Date Type Department Care Team (Late st Contact Info) Description 10/21/2023 Telephone [facility] Cancer Center Hematology & Oncology - Main [place] [address] [place], [place] [address] Zulma Acevedo, SHELLEY Follow-up (C1D1 72hr check in) Social History Tobacco Use Types Packs/Day [...] Telephone Encounter - Zulma Acevedo RN - 10/21/2023 1341 EDT Called patient to check in 72 hours following her 1st Enhertu infusion on 10/17. Pt states she is feeling more like herself than she has in the last 2 months! Pt reports taking one compazine proactively on 10/19 but has not experienced any nausea or needing anything additional. Pt reports minor fatigue, but was busy doing errands all day on 10/19. Pt does report that she has not had a BM for 3 days. States she did not take any bowel meds the past 2 days as she was busy and didn't want to have any issues. Stressed the importance of having regular bowel movements so that she doesn't cause any additional problems. Pt states she took colace and miralax today, and will take some senna tonight. Pt states she will be sabianism with the miralax and colace moving forward and will reach out if she does not have a BM this weekend. Pt reports good PO intake, weight stable, sleeping well. She does notfeel like her abdominal distention is better or worse, will update provider to see if she wants to get any more imaging or tapping. Pt also mentions needing a PV with next infusion, scheduling and pro vider made aware. Pt also wondering about when her next NM bone scan is due. Per provider, order placed for NM Bone Scan to align with patient's November 2023 scans/appointments. documented in this encounter Plan of Treatment Upcoming Encounters Date Type Department Care Team (Late st Contact Info) Description 04/02/2024 10:30 EDT Appointment [facility] Interventional Radiology Unit [address] [place] [address] [phone] 04/02/2024 15:15 EDT Office Visit [facility] Surgical Oncology - [address] [phone] Adolfo Carreno MD [address] [place] [address] [phone] 04/05/2024 9:30 EDT Telemedicine [facility] - [facility] Palliative Care Services [address] [place] [address] [phone] Chichi Woods MD [address] [place] [address] [phone] 04/11/2024 15:00 EDT Telemedicine [facility] Hematology & Oncology [address] [phone] Alisson Carreon MD [address] [place] [address] [phone] 04/13/2024 13:30 EDT Appointment [facility] Hematology & Oncology [address] [phone] 04/13/2024 14:00 EDT Appointment [facility] Hematology & Oncology [address] [phone] 04/16/2024 10:00 EST Telemedicine [facility] - [facility] Palliative Care Services [address] [place] [address] [phone] Chichi Woods MD [address] [place] [address], [place] [address] [place] [phone] 04/24/2024 9:00 EST Appointment [facility] Radiology CT Outpatient - [address] [id number] 04/24/2024 11:00 EST Appointment [facility] Breast Imaging - [facility] [address] [place], [place] [address]471 04/27/2024 12:00 EST Appointment [facility] Hematology & Oncology - [address] 160681 05/02/2024 15:00 EST Telemedicine [facility] Hematology & Oncology - [address] 367281 Alisson Carreon MD [address] [place] [address], [facility], Level [address] [place] [phone] 05/04/2024 10:15 EST Ancillary Procedure [facility] Cardiology - [place] [address] [place], [place] [phone] 05/04/2024 11:30 EST Appointment [facility] Hematology & Oncology - [address] [phone] 05/04/2024 12:00 EST Appointment [facility] Hematology & Oncology [address] [phone] 06/12/2024 13:00 EST Appointment [facility] Radiology CT - [address] [phone] documented as of this encounter Results * NM BONE WHOLE [...] above interpretation and agree with the findings. [id number] Narrative 11/25/2023 14:49 EDT NM BONE WHOLE [...] uptake overlying the abdomen. Resulting Agency Comment [id number] Procedure Note Merry Dooley MD - 11/25/2023 [...] the above interpretation andagree with the findings. [id number] Augustina Colin MD PhD G NM ORDERABLES documented in this encounter Visit Diagnoses Diagnosis Primary malignant neoplasm of breast with metastasis (HCC-CMS)- Primary Primary malignant neoplasm of breast with metastasis (HCC-CMS) documented in this encounter Care Teams Lgsw Relationship Specialty Start Date End Date Linda Blancas MD [address] [place] [address] PCP - General 01/06/11 Adolfo Carreno MD [address] [place] [phone] General Surgery 04/26/19 Augustina Colin MD PhD [address] [place] [phone] Medical Oncology 04/26/19 documented as of this encounter
--- OUTSIDE RECORDS SUMMARY | 2024-03-20 14:41 | XMS_ITS | Encounter Summary ---
Author Organization [facility] Address [address] [place] [address] Care Team Providers Care Helper Driver Name Role Phone Linda Blancas MD Primary Care Provider [phone] Adolfo Carreno MD Unavailable Augustina Colin MD PhD Unavailable Unavailable Reason for Visit * Cardiology (Routine/Next Available) - Authorization Not Required Specialty Diagnoses / Procedures Referred By [facility] Referred To Contact Diagnoses Malignant neoplasm of right female breast, unspecified estrogen receptor status, unspecified site of breast ([facility]) Procedures TRANSTHORACIC ECHO (TTE) COMPLETE IN ECHO TTHRC R-T 2D W/WOM-MODE COMPL SPEC&COLR D Augustina Colin MD PhD [facility] Referral ID Status Reason Start Date Expiration Date Visits Requested Visits Authorized [id number] Authorization Not Required 10/14/2023 1 1 Encounter Details Date Type Department Care Team (Latest Contact Info) Description 10/17/2023 14:00 EDT Ancillary Procedure [facility] Cardiology - [address] [place] [address] Malignant neoplasm of right female breast, unspecified estrogen receptor status, unspecified site of breast ([facility]) Social History Tobacco Use Types Packs/Day Years [...] Sign Reading Time Taken Comments Blood Pressure 136/75 10/17/2023 1448 EDT Pulse - - Temperature - - Respiratory Rate - - Oxygen Saturation - - Inhaled Oxygen Concentration - - Weight 61.2 kg (135 lb) 10/17/2023 1448 EDT Height 154.9 cm (5' 1) 10/17/2023 1448 EDT Body Mass Index 25.51 10/17/2023 1448 EDT documented in this encounter Functional Status [...] Description 04/02/2024 10:30 EDT Appointment [facility] Interventional Radiology Unit [address] [place], [place] [address] 04/02/2024 15:15 EDT Office Visit [facility] Surgical Oncology - [facility] [address] [place] [address] Adolfo Carreno MD 111 [facility], Level 2 [place] [phone] 04/05/2024 9:30 EDT Telemedicine [facility] - [facility] Palliative Care Services [address] [place], [place] [address] Chichi Woods MD [address] [place] [address] [address] [place] [phone] 04/11/2024 15:00 EDT Telemedicine [facility] Hematology & Oncology - [address] [phone] Alisson Carreon MD [address] [place] [address], Level 2 [place] [phone] 04/13/2024 13:30 EDT Appointment [facility] Hematology & Oncology [address] [phone] 04/13/2024 14:00 EDT Appointment [facility] Hematology & Oncology [address] [phone] 04/16/2024 10:00 EST Telemedicine [facility] - [facility] Palliative Care Services [address] [place] [address] [phone] Chichi Woods MD [address] [place] [phone] 04/24/2024 9:00 EST Appointment [facility] Radiology CT Outpatient - [address] [phone] 04/24/2024 11:00 EST Appointment [facility] Breast Imaging - [facility] [address] [phone] 04/27/2024 12:00 EST Appointment [facility] Hematology & Oncology [address] [phone] 05/02/2024 15:00 EST Telemedicine [facility] Hematology & Oncology - [address] [address]1471 Alisson Carreon MD 111 [facility] [place] [facility], Level 2 [place] [phone] 05/04/2024 10:15 EST Ancillary Procedure [facility] Cardiology - [address] [place] [address] 05/04/2024 11:30 EST Appointment [facility] Hematology & Oncology - [address] [phone] 05/04/2024 12:00 EST Appointment [facility] Hematology & Oncology [address] [phone] 06/12/2024 13:00 EST Appointment [facility] Radiology CT - [facility] [address] [place], [place] [phone] documented as of this encounter Procedures Procedure Name Priority Date/Time Associated Diagnosis Comments TRANSTHORACIC ECHO (TTE) COMPLETE Routine 10/17/2023 14:41 EDT Malignant neoplasm of right female breast, unspecified estrogen receptor status, unspecified site of breast (HCC-CMS) documented in this encounter Results * TRANSTHORACIC ECHO (TTE) COMPLETE W/DOPPLER W/CF NO CONTRAST (10/17/2023 14:41 EDT) Mitral deceleration time 144 ms [facility] AVAI Pk Camilo 1.6 cm2/m2 [facility] AV DOI 0.86 [facility] LV Diastolic Volume 62 mL [facility] LV Systolic Volume 30 mL [facility] Mitral A-wave peak velocity 0.8 m/s [facility] Mitral E-wave peak velocity 0.7 m/s [facility] Aortic peak gradient, S 9 mmHg [facility] Stroke volume (SV), LVOT DP 71 ml [facility] Aortic valve VTI, S 26.1 cm [facility] Aortic valve peak velocity, S 1.4 m/s [facility] LVOT VTI, S 22.7 cm [facility] LVOT peak velocity, S 1.2 m/s [facility] LVOT area 3.1 cm2 [facility] LVOT ID, S 2.0 cm [facility] LV IVRT, DP 85 msec [facility] AV LVOT peak gradient 6 mmHg [facility] Velocity ratio, mean, LVOT/AV 0.80 [facility] Aortic mean gradient, S 5 mmHg [facility] Aortic valve area, peak velocity 2.6 cm2 [facility] Aortic valve area VTI 2.7 cm2 [facility] LVOT mean gradient, S 3 mmHg [facility] LV ejection fraction, 1-p A4C 50 % [facility] LV ejection fraction, 1-p A2C 54 % [facility] AV dimensionless index (DI) 1.7 [facility] Aortic valve mean velocity, S 1.0 m/s [facility] Aortic valve area 2.5 cm2 [facility] Aortic root ID 2.7 cm [facility] Ascending aorta ID, a-p 2.7 cm [facility] LV ID, ES, PLAX 2.8 2.1 - 4.0 cm [facility] LV PW thickness, ED, PLAX 1.0 0.6 - 1.1 cm [facility] LV ID, ED, PLAX 3.8 3.5 - 6.0 cm [facility] LVIDD BY MMODE 3.8 cm [facility] LA volume/bsa, ES, BP 24.0 ml/m2 [facility] LA volume, ES, BP 38.0 ml [facility] LA volume/bsa, ES, A4C 26.0 ml/m2 [facility] LA Atrial Area A2C 16.2 cm2 [facility] LA Atrial Length A2C 5.6 cm [facility]I O LA volumes, ES, A4C 42.0 ml [facility] LA Atrial Area A4C 16.2 cm2 [facility] LA Atrial Length A4C 5.1 cm [facility] O Pulmonic valve mean velocity, S 1 cm/s [facility] LA ID, A-P, ES 2.8 cm [facility] LV end-diastolic volume, 1-p A4C 49 ml [facility] LV end diastolic volume 1-p A2C 31 ml [facility] Stroke index (SV/bsa) LVOT DP 44.0 ml/m2 [facility] LA/aortic root ratio 1.04 [facility]I O LV E/e', medial 5.4 [facility] LV e', lateral 11.30 m/s [facility] LV e', medial 5.40 m/s [facility] LVOT mean velocity, S 0.8 m/s [facility] Interventricular Septum to Posterior Wall Thickness Ratio 0.9 [facility] Anatomical Region Laterality Modality Ultrasound Narrative 10/17/2023 15:12 EDT ?Left??Ventricle: Left ventricular systolic function was normal with an ejection fraction of 55-60% by visual estimation. Left ventricular wall motion was normal; there were no regional wall motion abnormalities. ?Right??Ventricle: Right ventricular systolic function was normal. ?Pericardium: There appears to be a trivial pericardial effusion. ?S/p breast implants per biodiesel processing technician notes. This slighty interfered with image quality but preserved biventricular function without significant valve disease. Left Ventricle The left ventricular cavity was normal in size. Left ventricular systolic function was normal with an ejection fraction of 55-60% by visual estimation. Left ventricular diastolic parameters were normal. Left ventricular wall thickness was normal. Left ventricular wall motion was normal; there were no regional wall motion abnormalities. Global longitudinal strain was non-diagnostic due to poor regional tracking. . Right Ventricle The right ventricular cavity was normal in size. Right ventricular systolic function was normal. Right ventricular wall thickness was normal. Left Atrium The left atrium was normal in size. Right Atrium The right atrium was normal in size. IVC/SVC The inferior vena cava was normal in size. Mitral Valve The mitral leaflets was mildly thickened. There was no significant mitral valve stenosis or regurgitation. Tricuspid Valve Tricuspid valve structure was normal. There was no significant tricuspid valve regurgitation. There was no tricuspid valve stenosis. Aortic Valve The aortic valve structure was trileaflet. The aortic leaflets were not thickened. There was no aortic valve stenosis. There was no aortic valve regurgitation. AV Peak Velocity: 1.4 m/s. AV Mean Gradient: 5 mmHg. AV Area VTI: 2.7 cm2. Pulmonic Valve There was no significant pulmonic valve regurgitation. There was no pulmonic valve stenosis. Ascending Aorta The aortic root was normal in size. The ascending aorta was normal in size. Pericardium There appears to be a trivial pericardial effusion. Pulmonic Artery Unable to assess PA pressure, due to suboptimal tricuspid regurgitation envelope. Study Details Study status: Routine. Transthoracic echocardiography. M-Mode, complete 2D, complete spectral Doppler, and color Doppler.The study was interpreted by [facility]. Pertinent images and digital data are archived for permanent storage and are available for subsequent review. Scanning was performed from the apical, parasternal, subcostal and suprasternal acoustic windows. Overall the study quality was adequate. The study was difficult due to patient clinical status and body habitus. Images were obtained using cardiac ultrasound machine EPIQ #15. Augustina Colin MD PhD CARDIAC ECHO ORDERAB LES documented in this encounter Visit Diagnoses Diagnosis Malignant neoplasm of right female breast, unspecified estrogen receptor status, unspecified site of breast (HCC-CMS) documented in this encounter Care Teams Helper Driver Relationship Specialty Start Date End Date Linda Blancas MD [address] [place] [address] [address] [place] [address] PCP - General 01/06/11 Adolfo Carreno MD [address] [place] [phone] General Surgery 04/26/19 Augustina Colin MD PhD [address] [place] [phone] Medical Oncology 04/26/19 documented as of this encounter
--- OUTSIDE RECORDS SUMMARY | 2024-03-20 14:41 | XMS_ITS | Encounter Summary ---
Author Organization [facility] Address [address] [place] [address] Care Team Providers Care Strategic Intelligence Officer Name Role Phone Linda Blancas MD Primary Care Provider [phone] Adolfo Carreno MD Unavailable [phone] Augustina Colin MD PhD Unavailable Unavailable Encounter Details Date Type Department Care Team (Late st Contact Info) Description 10/11/2023 10:00 EDT Phlebotomy Only [facility] ED Center 2 Phlebotomy [address] [place], [place] [address] Check Totaler, Acc Phlebotomy Malignant neoplasm of right female breast, unspecified estrogen receptor status, unspecified site of breast (HCC-CMS); Primary malignant neoplasm of breast with metastasis (HCC-CMS); Encounter for long-term current use of medication [...] Appointment [facility] Interventional Radiology Unit [address] [place] [phone] 04/02/2024 15:15 EDT Office Visit [facility] Surgical Oncology - [address] [phone] Adolfo Carreno MD [address] [place] [address] 2 [place] [phone] 04/05/2024 9:[address] [facility] - [facility] Palliative Care Services [address] [place] [address] [phone] Chichi Woods MD [address] [place] [phone] 04/11/2024 15:00 EDT Telemedicine [facility] Hematology & Oncology [address] [phone] Alisson Carreon MD [address] [place] [phone] 04/13/2024 13:30 EDT Appointment [facility] Hematology & Oncology [address] [phone] 04/13/2024 14:00 EDT Appointment [facility] Hematology & Oncology - [address] [address] 04/16/2024 10:[address] [facility] - [facility] Palliative Care Services [address] [place], [place] 136[address] Chichi Woods MD 111 [facility], [address] [phone] 04/24/2024 9:00 EST Appointment [facility] Radiology CT Outpatient - [address] [address] 04/24/2024 11:00 EST Appointment [facility] Breast Imaging - [address] [id number] 04/27/2024 12:00 EST Appointment [facility] Hematology & Oncology - [address] [phone] 05/02/2024 15:00 EST Telemedicine [facility] Hematology & Oncology - [address] 128351 Alisson Carreon MD [address] [place] [address], [address] [place] [phone] 05/04/2024 10:15 EST Ancillary Procedure [facility] Cardiology [place] [place] [address] 05/04/2024 11:30 EST Appointment [facility] Hematology & Oncology - [address] [address] 05/04/2024 12:00 EST Appointment [facility] Hematology & Oncology - [address] [phone] 06/12/2024 13:00 EST Appointment [facility] Radiology CT - [address] [address] documented as of this encounter Procedures Procedure Name Priority Date/Time Associated Diagnosis Comments COMPREHENSIVE METABOLIC PANEL (ONCOLOGY USE ONLY-INC MG) STAT 10/11/2023 10:17 EDT Primary malignant neoplasm of breast with metastasis (HCC-CMS) CA 27.29 STAT 10/11/2023 10:17 EDT Malignant neoplasm of right female breast, unspecified estrogen receptor status, unspecified site of breast (HCC-CMS) HEPATITIS B PROFILE Add-On 10/11/2023 1 0:17 EDT Malignant neoplasm of right female breast, unspecified estrogen receptor status, unspecified site of breast (HCC-CMS) Encounter for long-term current use of medication COMPLETE BLOOD COUNT AND DIFFERENTIAL STAT 10/11/2023 10:17 EDT Primary malignant neoplasm of breast with metastasis (HCC-CMS) LIPID PROFILE (INCLUDES CHOLESTEROL, TRIGLYCERIDES, HDL, LDL) STAT 10/11/2023 10:17 EDT Malignant neoplasm of right female breast, unspecified estrogen receptor status, unspecified site of breast (HCC-CMS) Encounter for long-term current use of medication documented in this encounter Results * HEPATITIS B PROFILE (10/11/2023 10:17 EDT) Hep B Surface Ag Negative Negative 10/13/19 11:29 EDT [facility] Hep B Surface Ab, Quantitative <3.1 See Note mIU/mL 10/13/2023 11:29 [facility] Comment: Reference Range for Hep B Surface Ab, Quant: Positive: >= 10.0 mIU/mL Negative: ??< 10.0 mIU/mL Patient is presumed to not be immune to infection with Hepatitis B Virus. Hep B Surface Ab, Qualitative Negative See Note 10/13/2023 11:29 EDT [facility] Comment: Reference Range for Hep B Surface Ab, Qual: Unvaccinated: ??Negative Vaccinated: ??Positive Hepatitis B Core Ab, Total Negative Negative 10/13/2023 11:29 EDT [facility] Blood VENOUS BLOOD / Unknown Venipuncture / Unknown 10/11/2023 10:17 EDT 10/11/2023 10:23 EDT Augustina Colin MD PhD CHEMISTRY & BLOOD GA S ORDERABLES [facility] [address] [place] [address] * (ABNORMAL) LIPID PROFILE (INCLUDES CHOLESTEROL, TRIGLYCERIDES, HDL, LDL) (10/11/2023 10:17 EDT) Cholesterol 234(H) <200 mg/dL 10/11/2023 10:55 T [facility] Comment:Note that therapeuti c goals will differ between patients based on cardiac risk factors and current medical therapy. HDL 69 >=50 mg/dl 10/11/2023 10:55 [facility] Comment:Note that therapeuti c goals will differ between patients based on cardiac risk factors and current medical therapy. LDL, Calculated 135 <160 mg/dL 10:55 [facility] Comment:Note that therapeuti c goals will differ between patients based on cardiac risk factors and current medical therapy. Triglyceride 149 <=150 mg/dL 10/11/2023 10:55 [facility] Comment:Note that therapeuti c goals will differ between patients based on cardiac risk factors and current medical therapy. Chol/HDL Ratio 3.4 See Note 10/11/2023 10:55 [facility] Comment:No reference range h as been established for CHOL/HDL ratio. Non HDL Cholesterol 165(H) <160 mg/dL 10/11/2023 10:55 [facility] Comment:Note that therapeuti c goals will differ between patients based on cardiac risk factors and current medical therapy. Blood VENOUS BLOOD / Unknown Venipuncture / Unknown 10/11/2023 10:17 EDT 10/11/2023 10:23 EDT Augustina Colin MD PhD CHEMISTRY & BLOOD GA S ORDERABLES [facility] [address] [place], [place] [phone] * (ABNORMAL) COMPREHENSIVE METABOLIC PANEL (ONCOLOGY USE ONLY-INC MG) (10/11/2023 10:17 EDT) Sodium 141 136 - 145 mmol/L 10/11/2023 10:55 [facility] Potassium 3.8 3.5 - 5.0 mmol/L 10/11/2023 10:55 [facility] Chloride 109 96 - 110 mmol/L 10/11/2023 10:55 [facility] CO2 Total 25 22 - 32 mmol/L 10/11/2023 10:55 [facility] Glucose 113(H) 70 - 99 mg/dl 10/11/2023 10:55 [facility] BUN 24 10 - 26 mg/dL 10/11/2023 10:55 [facility] Creatinine 0.71 0.52 - 1.04 mg/dL 10/11/2023 10:55 [facility] eGFR 96 >60 mL/min/1.7 3m2 10/11/2023 10:55 [facility] Total Protein 5.8(L) 6.3 - 8.2 g/dL 10/11/2023 10:55 [facility] Albumin 3.0(L) 3.4 - 4.9 g/dL 10/11/2023 10:55 [facility] Alkaline Phosphatase 351(H) 38 - 126 U/L 10/11/2023 10:55 [facility] AST 89(H) 15 - 46 U/L 10/11/2023 10:55 [facility] ALT 61(H) <35 U/L 10/11/2023 10:55 [facility] Bilirubin, Total 1.2 <1.4 mg/dL 10/11/19 10:55 [facility] Calcium 8.6 8.5 - 10.5 mg/dL 10/11/2023 10:55 T [facility] Magnesium 2.1 1.7 - 2.8 mg/dL 10/11/2023 10:55 [facility] Albumin/Globulin Ratio 1.1 1.0 - 2.5 10/11/2023 10:55 T [facility] Anion Gap 7 5 - 14 mmol/L 10/11/2023 10:55 T [facility] Blood VENOUS BLOOD / Unknown Venipuncture / Unknown 10/11/2023 10:17 EDT 10/11/2023 10:23 EDT Augustina Colin MD PhD CHEMISTRY & BLOOD GA S ORDERABLES [facility] [address] [place] [phone] * (ABNORMAL) COMPLETE BLOOD COUNT AND DIFFERENTIAL (10/11/2023 10:17 EDT) WBC 8.63 4.00 - 12.40 K/cmm 10/11/2023 10:38 [facility] RBC 3.55(L) 3.86 - 5.04 M/cmm 10/11/2023 10:38 [facility] Hemoglobin 11.3(L) 11.6 - 15.2 g/dL 10/11/2023 10:38 [facility] HCT 35.1 34.9 - 44.4 % 10/11/2023 10:38 [facility] MCV 99(H) 81 - 98 fL 10/11/2023 10:38 [facility] MCH 31.8 26.7 - 33.3 pg 10/11/2023 10:38 [facility] MCHC 32.2 32.1 - 35.9 g/dL 10/11/2023 10:38 [facility] RDW-CV 15.6(H) <14.7 % 10/11/2023 10:38 [facility] RDW-SD 56.6(H) <50.4 fl 10/11/2023 10:38 [facility] PLT 133(L) 141 - 377 K/cmm 10/11/2023 10:38 [facility] MPV 10.6 9.5 - 12.7 fL 10/11/2023 10:38 [facility] % Neutrophils 71.4 % 10/11/2023 10:38 [facility] % Lymphocytes 14.9 % 10/11/2023 10:38 [facility] % Monocytes 11.0 % 10/11/2023 10:38 [facility] % Eosinophils 2.0 % 10/11/2023 10:38 [facility] % Basophils 0.2 % 10/11/2023 10:38 [facility] % Immature Grans 0.5 % 10/11/19 10:38 [facility] Absolute Neutrophils 6.16 2.20 - 8.85 K/cmm 10/11/2023 10:38 [facility] Absolute Lymphocytes 1.29 1.09 - 3.30 K/cmm 10/11/2023 10:38 [facility] Absolute Monocytes 0.95(H) 0.10 - 0.80 K/cmm 10/11/2023 10:38 [facility] Absolute Eosinophils 0.17 0.03 - 0.61 K/cmm 10/11/2023 10:38 [facility] ABS Basophils 0.02 0.01 - 0.11 K/cmm 10/11/2023 10:38 [facility] Absolute Immature Grans 0.04 0.00 - 0.06 K/cmm 10/11/2023 10:38 [facility] Type of Differential: Auto 10/11/2023 10:38 [facility] Blood VENOUS BLOOD / Unknown Venipuncture / Unknown 10/11/2023 10:17 EDT 10/11/2023 10:23 EDT Augustina Colin MD PhD PACKAGES & DNA PROBE ORDERABLES [facility] [address] [place], [place] [phone] * (ABNORMAL) CA 27.29 (10/11/2023 10:17 EDT) CA 27.29 864.2(H) <38.0 U/mL 10/12/2023 9:54 EDT [facility] Comment: NOTE: Serum CA 27.29 concentration should not be interpreted as absolute evidence for the presence or absence of malignant disease. Assayed on [employer] Cortexicaaur XPT using chemiluminescent technology. ??Values obtained by using different assay methods cannot be used interchangeably. Blood VENOUS BLOOD / Unknown Venipuncture / Unknown 10/11/2023 10:17 EDT 10/11/2023 10:23 EDT Augustina Colin MD PhD CHEMISTRY & BLOOD GA S ORDERABLES Performing Organization Address City/[facility]/ZIP Co de Phone Number [facility] [address] [place], [place] [phone] documented in this encounter Visit Diagnoses Diagnosis Malignant neoplasm of right female breast, unspecified estrogen receptor status, unspecified site of breast (HCC-CMS) Primary malignant neoplasm of breast with metastasis (HCC-CMS) Encounter for long-term current use of medication documented in this encounter Care Teams Strategic Intelligence Officer Relationship Specialty Start Date End Date Linda Blancas MD [address] [place] [address] [address] [place] [address] PCP - General 01/06/11 Adolfo Carreno MD [address] [place] [address], [facility] [address] [place] [phone] General Surgery 04/26/19 Augustina Colin MD PhD [address] [place] [address], Level [address] [place] [phone] Medical Oncology 04/26/19 documented as of this encounter
--- OUTSIDE RECORDS SUMMARY | 2024-03-20 14:41 | XMS_ITS | Encounter Summary ---
Author Organization [facility] Address [address] [place] [address] Care Team Providers Care Obstetric Assistant Name Role Phone Linda Blancas MD Primary Care Provider [phone] Adolfo Carreno MD Unavailable [phone] Augustina Colin MD PhD Unavailable Unavailable Reason for Visit * Reason Onset Date Comments Appointment Related 10/13/2023 Encounter Details Date Type Department Care Team (Late st Contact Info) Description 10/13/2023 Telephone [facility] Hematology & Oncology - Main [place] [address] [place], [place] [phone] Augustina Colin, PhD Appointment Related Social History [...] * Telephone Encounter - Sandhya Estrada - 10/13/2023 1551 EDT You are scheduled for your port placement on 11/03/2023 @ 1200. Please check in at registration at 1130. Prep for port placements are nothing to eat or drink 6 hours prior, you will need a log driver. You will be sedated but will be able to return home, it normally takes about 4 hours start to finish.This is because they need to make sure your safe and stable enough to go home. documented in this encounter Plan of Treatment Upcoming Encounters Date Type Department Care Team (Late st Contact Info) Description 04/02/2024 10:30 EDT Appointment [facility] Interventional Radiology Unit [address] [place] [address] [phone] 04/02/2024 15:15 EDT Office Visit [facility] Surgical Oncology - [address] [phone] Adolfo Carreno MD 111 [facility], Level 2 [place] [phone] 04/05/2024 9:30 EDT Telemedicine [facility] - [facility] Palliative Care Services [address], [place] [phone] Chichi Woods MD 111 [facility], [address] [phone] 04/11/2024 15:00 EDT Telemedicine [facility] Hematology & Oncology - [address] [phone] Alisson Carreon MD [address] [place] [address] 2 [place] [phone] 04/13/2024 13:30 EDT Appointment [facility] - [address] [phone] 04/13/2024 14:00 EDT Appointment [facility] - [address] 454221 04/16/2024 10:00 EST Telemedicine [facility] - [facility] [place] Palliative Care Services [address] [place] [address] [phone] Chichi Woods MD [address] [place] [address], [address] [phone] 04/24/2024 9:00 EST Appointment [facility] Radiology CT Outpatient - [address] [id number] 04/24/2024 11:00 EST Appointment [facility] [place] Breast Imaging - [address] 549351 04/27/2024 12:00 EST Appointment [facility]emat[facility] Oncology - [address] [phone] 05/02/2024 15:00 EST Telemedicine [facility]ology [facility] Oncology - [address] [phone] Alisson Carreon MD [address] [place] [address], [facility] 2 [place] [phone] 05/04/2024 10:15 EST Ancillary Procedure [facility] Cardiology [place] [address] 05/04/2024 11:30 EST Appointment [facility] Hematology & Oncology - [address] [address] 05/04/2024 12:00 EST Appointment [facility] [address] [address] 06/12/2024 13:00 EST Appointment [facility] Center Radiology CT - [address] [phone] documented as of this encounter Visit Diagnoses Not on filedocumented in this encounter Care Teams Obstetric Assistant Relationship Specialty Start Date End Date Linda Blancas MD [facility] [address] [place] [address] PCP - General 01/06/11 Adolfo Carreno MD [address] [place] [phone] General Surgery 04/26/19 Augustina Colin MD PhD [address] [place] [phone] Medical Oncology 04/26/19 documented as of this encounter
--- OUTSIDE RECORDS SUMMARY | 2024-03-20 14:41 | XMS_ITS | Encounter Summary ---
Author Organization [facility] Address [address] [place] [address] Care Team Providers Care Keg Header Name Role Phone Linda Blancas MD Primary Care Provider [phone] Adolfo Carreno MD Unavailable [phone] Augustina Colin MD PhD Unavailable Unavailable Reason for Visit * Reason Onset Date Comments Pharmacy 10/17/2023 Encounter Details Date Type Department Care Team (Late st Contact Info) Description 10/17/2023 Orders Only [facility] Cancer Center Hematology & Oncology - Main [place] [address] [place], [place] [phone] Daily, Ana Laura RN Primary malignant neoplasm [...] after chemotherapy. 12 Tablet 5 10/17/2023 12/20/2023 prochlorperazine (COMPAZINE) 10 mg tabletIndications:Primar y malignant neoplasm of breast with metastasis (HCC-CMS) Take 1 Tablet by mouth every 6 hours as needed for Nausea. 30 Tablet 5 10/17/2023 02/15/2024 documented in this encounter Progress Notes * Ana Laura Winn RN - 10/17/2023 1621 EDT Take home meds for treatment sent to pt's local [facility]. documented in this encounter Plan of Treatment Upcoming Encounters Date Type Department Care Team (Late st Contact Info) Description 04/02/2024 10:30 EDT Appointment [facility] Interventional Radiology Unit [address] [place], [place] [phone] 04/02/2024 15:15 EDT Office Visit [facility] Surgical Oncology - [facility] [address] [place], [place] [phone] Adolfo Carreno MD 111 [facility], Level 2 [place] [phone] 04/05/2024 9:30 EDT Telemedicine [facility] - [facility] Palliative Care Services [address] [place], [place] [phone] Chichi Woods MD [address] [place] [address] 262 [place] [phone] 04/11/2024 15:00 EDT Telemedicine [facility] Hematology & Oncology - [address] [phone] Alisson Carreon MD [address] [place] [address], Level [address] [place] [phone] 04/13/2024 13:30 EDT Appointment [facility] Hematology & Oncology [address] 167511 04/13/2024 14:00 EDT Appointment [facility] Hematology & Oncology [address] [address] 04/16/2024 10:00 EST Telemedicine [facility] - [facility] Palliative Care Services [address] [place] [address] Chichi Woods MD [address] [place] [phone] 04/24/2024 9:00 EST Appointment [facility] Radiology CT Outpatient - [address] [id number] 04/24/2024 11:00 EST Appointment [facility] Breast Imaging - [address] 059491 04/27/2024 12:00 EST Appointment [facility] Hematology & Oncology - [address] [phone] 05/02/2024 15:00 EST Telemedicine [facility] Hematology & Oncology - [address] [phone] Alisson Carreon MD [address] [place] [address] [phone] 05/04/2024 10:15 EST Ancillary Procedure [facility] Cardiology - [address] [place] [address] 05/04/2024 11:30 EST Appointment [facility] Hematology & Oncology - [address] 391991 05/04/2024 12:00 EST Appointment [facility] Hematology & Oncology [address] 180851 06/12/2024 13:00 EST Appointment [facility] Radiology CT - [address] [phone] documented as of this encounter Visit Diagnoses Diagnosis Primary malignant neoplasm of breast with metastasis (HCC-CMS)- Primary documented in this encounter Care Teams Keg Header Relationship Specialty Start Date End Date Linda Blancas MD [facility] [address] [place] [address] PCP - General 01/06/11 Adolfo Carreno MD [address] [place] [address] [phone] General Surgery 04/26/19 Augustina Colin MD PhD [address] [place] [phone] Medical Oncology 04/26/19 documented as of this encounter
--- OUTSIDE RECORDS SUMMARY | 2024-03-20 14:41 | XMS_ITS | Encounter Summary ---
Author Organization [facility] Address [address] [place] [address] Care Team Providers Care Electromechanical Technician Name Role Phone Linda Blancas MD Primary Care Provider [phone] Adolfo Carreno MD Unavailable [phone] Augustina Colin MD PhD Unavailable Unavailable Reason for Referral * (Routine/Next Available) - Receiving Office to Obtain Authorization Specialty Diagnoses / Procedures Referred By Contac t Referred To Contact Procedures CT OUTSIDE IMAGES ABDOMEN PELVIS Imaging, External Referral ID Status Reason Start Date Expiration Date Visits Requested Visits Authorized [id number] Receiving Office to Obtain Authorization 10/14/2023 1 1 Reason for Visit * (Routine/Next Available) - Receiving Office to Obtain Authorization Specialty Diagnoses / Procedures Referred By Contac t Referred To Contact Procedures CT OUTSIDE IMAGES ABDOMEN PELVIS Imaging, External Referral ID Status Reason Start Date Expiration Date Visits Requested Visits Authorized [id number] Receiving Office to Obtain Authorization 10/14/2023 1 1 Encounter Details Date Type Department Care Team (Latest Contact Info) Description 10/14/2023 17:53 EDT - 10/14/2023 23:59 EDT Hospital Encounter [facility] Center Secondary Reads [place] Discharge Disposition: Home or Self Care Social [...] by mouth daily. 90 Tab 3 08/16/2012 elacestrant 345 mg tabletIndications:Prim hugo malignant neoplasm [...] Tablets by mouth as needed. 12/07/2023 mv-mn/C/glutamin/lysin /pbfo448 (AIRBORNE, ASCORBATE SODIUM, ORAL) Take by mouth as needed. 12/14/2023 OMEPRAZOLE ORAL Take 40 mg by mouth 2 times daily. 11/23/2023 prasterone, dhea, (INTRAROSA) 6.[address] 6.5 mg vaginally daily. 28 Each 4 07/30/2022 12/14/2023 venlafaxine (EFFEXOR-XR) 150 mg XR capsule Take 1 Cap by mouth daily. 90 Cap 3 08/16/2012 12/14/2023 documented as of this encounter Discharge Disposition Disposition Code Departure Means Destination Home or Self Care documented in this encounter Plan of Treatment Upcoming Encounters Date Type Department Care Team (Late st Contact Info) Description 04/02/2024 10:30 EDT Appointment [facility] Interventional Radiology Unit [address] [place] [place] [address] [phone] 04/02/2024 15:15 EDT Office Visit [facility] Surgical Oncology - [address] [phone] Adolfo Carreno MD [address] [place] [address] 2 [place] [phone] 04/05/2024 9:30 EDT Telemedicine [facility] - [facility] Palliative Care Services [address] [place] [place] [address] [phone] Chichi Woods MD [address] [place] [address], [address] [phone] 04/11/2024 15:00 EDT Telemedicine [facility] Hematology & Oncology - [address] 476241 Alisson Carreon MD [address] [place] [address] 2 [place] [phone] 04/13/2024 13:30 EDT Appointment [facility] Hematology & Oncology - [address] [phone] 04/13/2024 14:00 EDT Appointment [facility] Hematology & Oncology - [address] [phone] 04/16/2024 10:00 EST Telemedicine [facility] - [facility] Palliative Care Services [address] [place] [address] Chichi Woods MD 111 [facility], [address] [phone] 04/24/2024 9:00 EST Appointment [facility] Radiology CT Outpatient - [address] 197091 04/24/2024 11:00 EST Appointment [facility] Breast Imaging - [facility] [place] [address] [place], [place] 731361 04/27/2024 12:00 EST Appointment [facility] Hematology & Oncology - [address] 923331 05/02/2024 15:00 EST Telemedicine [facility] Hematology & Oncology - [address] 491021 Alisson Carreon MD [address] [place] [address], [facility], Level 2 [place] [phone] 05/04/2024 10:15 EST Ancillary Procedure [facility] Cardiology [place] [address] [place] [address] 05/04/2024 11:30 EST Appointment [facility] Hematology & Oncology - [address] [phone] 05/04/2024 12:00 EST Appointment [facility] Hematology & Oncology - [address] [phone] 06/12/2024 13:00 EST Appointment [facility] Rad[facility] - [address] [phone] documented as of this encounter Procedures Procedure Name Priority Date/Time Associated Diagnosis Comments CT OUTSIDE IMAGES ABDOMEN PELVIS Routine 10/14/2023 17:54 EDT documented in this encounter Results * CT OUTSIDE IMAGES ABDOMEN PELVIS (10/14/2023 17:54 EDT) Narrative 10/14/2023 17:54 EDT This is a non-reportable exam. External Imaging IMG OTHER IMAGING OR DERABLES documented in this encounter Visit Diagnoses Not on filedocumented in this encounter Care Teams Electromechanical Technician Relationship Specialty Start Date End Date Linda Blancas MD [facility] [address] [place] [address] PCP - General 01/06/11 Adolfo Carreno MD [address] [place] [phone] General Surgery 04/26/19 Augustina Colin MD PhD [address] [place] [address] 2 [place] [phone] Medical Oncology 04/26/19 documented as of this encounter
--- OUTSIDE RECORDS SUMMARY | 2024-03-20 14:41 | XMS_ITS | Encounter Summary ---
Author Organization [facility] Address [address] [place] [address] Care Team Providers Care [place] Leverman Name Role Phone Linda Blancas MD Primary Care Provider [phone] Adolfo Carreno MD Unavailable [phone] Augustina Colin MD PhD Unavailable Unavailable Encounter Details Date Type Department Care Team (Late st Contact Info) Description 10/17/2023 Orders Only [facility] Cancer Center Hematology & Oncology - [facility] [address] [place], [place] [phone] Augustina Colin, PhD Social History Tobacco Use [...] Info) Description 04/02/2024 10:30 EDT Appointment [facility] Interventional Radiology Unit [address] [place] [address] [phone] 04/02/2024 15:15 EDT Office Visit [facility] Surgical Oncology - [address] [phone] Adolfo Carreno MD [address] [place] [phone] 04/05/2024 9:[address] [facility] - [facility] Palliative Care Services [address] [place] [address] 745871 Chichi Woods MD [address] [place] [phone] 04/11/2024 15:00 EDT Telemedicine [facility] Hematology & Oncology [address] 061781 Alisson Carreon MD [address] [place] [address] [phone] 04/13/2024 13:30 EDT Appointment [facility] Hematology & Oncology [address] 449371 04/13/2024 14:00 EDT Appointment [facility] Hematology & Oncology [address] 431121 04/16/2024 10:[address] [facility] - [facility] Palliative Care Services [address] [place] [address] [phone] Chichi Woods MD [address] [place] [address], [address] [phone] 04/24/2024 9:00 EST Appointment [facility] Radiology CT Outpatient - [address] [id number] 04/24/2024 11:00 EST Appointment [facility] Breast Imaging - [facility] [address] [place], [place] 722831 04/27/2024 12:00 EST Appointment [facility] Hematology & Oncology - [address] 823101 05/02/2024 15:00 EST Telemedicine [facility] Hematology & Oncology - [address] [address] Alisson Carreon MD [address] [place] [address], [facility], Level 2 [place] [phone] 05/04/2024 10:15 EST Ancillary Procedure [facility] Cardiology - [address] [place], [place] [phone] 05/04/2024 11:30 EST Appointment [facility] Hematology & Oncology - [address] 829681 05/04/2024 12:00 EST Appointment [facility] Hematology & Oncology [address] [phone] 06/12/2024 13:00 EST Appointment [facility] Radiology CT - [address] [phone] documented as of this encounter Visit Diagnoses Not on filedocumented in this encounter Care Teams [place] Relationship Specialty Start Date End Date Linda Blancas MD [facility] [address] [place] [address] PCP - General 01/06/11 Adolfo Carreno MD [address] [place] [address], [facility] 2 [place] [phone] General Surgery 04/26/19 Augustina Colin MD PhD [address] [place] [address], [facility] 2 [place] [phone] Medical Oncology 04/26/19 documented as of this encounter
--- OUTSIDE RECORDS SUMMARY | 2024-03-20 14:41 | XMS_ITS | Encounter Summary ---
Author Organization [facility] Address [address] [place] [address] Care Team Providers Care Guest Room Inspector Name Role Phone Linda Blancas MD Primary Care Provider [phone] Adolfo Carreno MD Unavailable [phone] Augustina Colin MD PhD Unavailable Unavailable Reason for Visit * Reason Comments Infusion * Episode Based Medications (Routine) - Authorization Not Required Specialty Diagnoses / Procedures [facility] Referred To Contact Diagnoses Malignant neoplasm of right female breast, unspecified estrogen receptor status, unspecified site of breast (HCC-CMS) Augustina Colin MD PhD [facility] Ep2 Infusion [address] [place] [address] Referral ID Status Reason Start Date Expiration Date Visits Requested Visits Authorized [id number] Authorization Not Required 10/12/2023 3 11 Encounter Details Date Type Department Care Team (Latest Contact Info) Description 10/18/2023 10:56 EDT - 10/18/2023 23:59 EDT Hospital Encounter [facility] Hematology & Oncology - Main [place] [address], [place] [phone] Malignant neoplasm of right female breast, unspecified estrogen receptor status, unspecified site of breast (HCC-CMS) (Primary Dx) Discharge Disposition: Home or Self Care Social History Tobacco Use Types Packs/Day Years Used Date Smoking Tobacco: Never Smokeless Tobacco: Never Tobacco Cessation:Counseling Given: Not Answered Alcohol Use Standard Drinks/Week Comments Yes 2 [...] Sign Reading Time Taken Comments Blood Pressure 125/71 10/18/2023 1204 EDT Pulse 95 10/18/2023 1204 EDT Temperature 36.5 ??C (97.7 ??F) 10/18/2023 1204 EDT Respiratory Rate 16 10/18/2023 1204 EDT Oxygen Saturation 97% 10/18/2023 1204 EDT Inhaled Oxygen Concentration - - Weight 60.8 kg (134 lb 1.6 oz) 10/18/2023 1204 E DT Height 155 cm (5' 1.02) 10/18/2023 1204 EDT Body Mass Index 25.32 10/18/2023 1204 EDT documented in this encounter Functional Status [...] Tablets by mouth as needed. 12/07/2023 mv-mn/C/glutamin/lysin /ustk013 (AIRBORNE, ASCORBATE SODIUM, ORAL) Take by mouth [...] documented in this encounter Progress Notes * Mira Arellano RN - 10/18/2023 1200 EDT Out-patient Chemotherapy Note Patient presents to clinic today for cycle # 1 , day # 1 of Fam Trastuzumab Deruxtecan (breast,lung) treatment plan. Patient having ongoing GI issues- discussed in more detail w/ Dr. Colin at chairside. See MD note. Reviewed lab results with patient. CBC: Lab Results Component Value Date WBC 7.40 10/18/2023 HGB 11.1 (L) 10/18/2023 HCT 34.4 (L) 10/18/2023 PLT 163 10/18/2023 NEUTROABS 5.15 10/18/2023 Chemistry: Lab Results Component Value Date NA 141 10/18/2023 K 3.7 10/18/2023 BUN 14 10/18/2023 CREATININE 0.58 10/18/2023 CALCIUM 9.1 10/18/2023 MG 2.0 10/18/2023 LFT: Lab Results Component Value Date TBIL 1.5 (H) 10/18/2023 ALKPHOS 380 (H) 10/18/2023 AST 139 (H) 10/18/2023 ALT 79 (H) 10/18/2023 Parameters for today???s treatment met. Patient noted with Peripheral IV Right forearm for access. IV flushed, site patent and blood returnnoted before and after all chemotherapy and/or biotherapy infusions. Patient received pre-meds- 8mg po dexamethasone, 0.25mg IV aloxi (see MAR). Patient received Fam Trastuzumab Deruxtecan over 90 min as it is 1st infusion. Infused through in line filter. Patient tolerating chemotherapy treatment at this time with no signs of reaction or side effects. Patient verbally educated on all medications administered today. Patient expressed understanding ofeducation provided and no barriers identified Patient' s Peripheral IV Right forearm noted to have brisk blood return and device flushed per hospital policy. Access site noted to be patent. Peripheral IV Right forearm removed, dressing applied. Patient and family encouraged to call clinic with any issues. I was supervised by Dr. Tong & Dr Easley who was present and immediately available in the office suite. MIRA ARELLANO RN 10/18/2023 documented in this encounter Miscellaneous Notes * Addendum Note - Emerita Ly - 10/18/2023 1200 EDTEncounter addended by: Emerita Ly on: 10/19/2023 9:12 Actions taken: Charge Capture section accepted documented in this encounter Plan of Treatment Upcoming Encounters Date Type Department Care Team (Late st Contact Info) Description 04/02/2024 10:30 EDT Appointment [facility] Interventional Radiology Unit [address] [place] [address] [phone] 04/02/2024 15:15 EDT Office Visit [facility] Surgical Oncology - [address] [phone] Adolfo Carreno MD [address] [place] [address] [phone] 04/05/2024 9:30 EDT Telemedicine [facility] Palliative Care Services [address] [place] [address] [phone] Chichi Woods MD [address] [place] [address] [phone] 04/11/2024 15:00 EDT Telemedicine [facility] Hematology & Oncology - [address] 430641 Alisson Carreon MD [address] [place] [address] [phone] 04/13/2024 13:30 EDT Appointment [facility] Hematology & Oncology [address] [phone] 04/13/2024 14:00 EDT Appointment [facility] Hematology & Oncology [address] 019391 04/16/2024 10:00 EST Telemedicine [facility] Palliative Care Services [address] [place] [address] 168411 Chichi Woods MD [address] [place] [address] [phone] 04/24/2024 9:00 EST Appointment [facility] Radiology CT Outpatient - [address] [phone] 04/24/2024 11:00 EST Appointment [facility] Breast Imaging - [facility] [place] [address] [place], [place] 126601 04/27/2024 12:00 EST Appointment [facility] Hematology & Oncology - [address] 967011 05/02/2024 15:00 EST Telemedicine [facility] Hematology & Oncology [address] 494761 Alisson Carreon MD [address] [place] [address], Level 2 [place] [phone] 05/04/2024 10:15 EST Ancillary Procedure [facility] Cardiology - [address] [place] [address] 05/04/2024 11:30 EST Appointment [facility] Hematology & Oncology [address] [id number] 05/04/2024 12:00 EST Appointment [facility] Hematology & Oncology [address] 118291 06/12/2024 13:00 EST Appointment [facility] Radiology CT - [address] [phone] documented as of this encounter Visit Diagnoses Diagnosis Malignant neoplasm of right female breast, unspecified estrogen receptor status, unspecified site of breast (HCC-CMS)- Primary documented in this encounter Administered Medications Inactive Administered Medications - up to 3 most recent administrations Medication Order MAR Action Action Date Dose Rate Site dexAMETHasone (DECADRON) tablet 8 mg 8 mg, oral, NOW X1, 1 dose, On 5/7/24 at 1230, Routine Given 10/18/2023 12:33 EDT 8 mg fam-trastuzumab deruxtecan-nxki (Enhertu) 331.6 mg in dextrose 5% (D5W) 100 mL IVPB 331.6 mg (rounded from 331.56 mg = 5.4 mg/kg ? 61.4 kg Treatment plan Recorded weight), intravenous, Administer over 90 Minutes, NOW X1, 1 dose, On Tue10/18/23 at 1300 Given 10/18/2023 13:16 EDT 331.6 mg palonosetron (ALOXI) injection 0.25 mg 0.25 mg, intravenous, NOW X1, 1 dose, On Tue10/18/23 at 1230, Routine Given 10/18/2023 12:33 EDT 0.25 mg documented in this encounter Orders Medications Ordered That Vj ht Not Have Been Administered Count Last Ordered Date First Ordered Date alteplase (CATHFLO ACTIVASE) injection 2 mg 1 10/18/2023 dextrose 5 % (D5W) infusion 1 10/18/2023 diphenhydrAMINE (BENADRYL) injection 50 mg 1 10/18/2023 epinephrine anaphylaxis kit 1 10/18/2023 heparin (PF) flush 30 Units 1 10/18/2023 heparin (PF) lock flush 500 Units 1 024 lidocaine (PF) 10 mg/mL (1 % ) injection 2 mL 1 10/18/2023 methylPREDNISolone sod suc(P F) (SOLU-MEDROL) injection 100 mg 1 10/18/2023 sodium chloride 0.9 % (flush) flush 10 mL 2 10/18/2023 sodium chloride 0.9 % (flush) flush 20 mL 1 10/18/2023 Nursing Count Last Ordered Date First Orde red Date INFORMED CONSENT 1 10/18/2023 Appointment Requests Count Last Ordered Date Fi rst Ordered Date ONCBCN INFUSION APPOINTMENT REQUEST - CALCULATED 1 10/18/2023 documented in this encounter Care Teams Guest Room Inspector Relationship Specialty Start Date End Date Linda Blancas MD [address] [place] [address] PCP - General 01/06/11 Adolfo Carreno MD [address] [place] [address], [facility] 2 [place] [address] General Surgery 04/26/19 Augustina Colin MD PhD [address] [place] [address] 2 [place] [phone] Medical Oncology 04/26/19 documented as of this encounter
--- OUTSIDE RECORDS SUMMARY | 2024-03-20 14:41 | XMS_ITS | Encounter Summary ---
Author Organization [facility] Address [address] [place] [address] Care Team Providers Care Theatrical Agent Name Role Phone Linda Blancas MD Primary Care Provider [phone] Adolfo Carreno MD Unavailable [phone] Augustina Colin MD PhD Unavailable Unavailable Reason for Referral * Test (Routine/Next Available) - Authorization Not Required Specialty Diagnoses / Procedures [facility] Referred To Contact Diagnoses SOB (shortness of breath) Procedures PULMONARY FUNCTION TESTING Chelsea Logan MD [address] [facility], Level [address] [place] [address] Referral ID Status Reason Start Date Expiration Date Visits Requested Visits Authorized [id number] Authorization Not Required 10/12/2023 1 1 Encounter Details Date Type Department Care Team (Late st Contact Info) Description 10/12/[address] [facility] Pulmonology & Critical Care - [facility] [address] [place], [place] 8[address] Linda Blancas MD [facility] [address] [place], [place] 6560[address] SOB (shortness of breath) (Primary Dx) Social History Tobacco Use Types [...] [facility] Inter[facility] [address] [place] [address] [phone] 04/02/2024 15:[address] [facility] Surgical Oncology - [facility] [address] [place], [place] 2833[address] Adolfo Carreno MD [address] [facility], Level [address] [place] [phone] 04/05/2024 9:30 EDT Telemedicine [facility] Palliative Care Services [address] [place], [place] [phone] Chichi Woods MD 111 [facility], [address] [phone] 04/11/2024 15:00 EDT Telemedicine [facility] Hematology & Oncology - [address] [phone] Alisson Carreon MD [address] [place] [address], [facility] 2 [place] [phone] 04/13/2024 13:30 EDT Appointment [facility] Hematology & Oncology - [address] [phone] 04/13/2024 14:00 EDT Appointment [facility] Hematology & Oncology [address] [phone] 04/16/2024 10:00 EST Telemedicine [facility] - [facility] Palliative Care Services [address] [place] [address] Chichi Woods MD [address] [place] [address] [phone] 04/24/2024 9:00 EST Appointment [facility] Radiology CT Outpatient - [address] [id number] 04/24/2024 11:[address] [facility] Breast Imaging - [facility] [address] 241771 04/27/2024 12:00 EST Appointment [facility] Hematology & Oncology - [address] [phone] 05/02/2024 15:00 EST Telemedicine [facility] Hematology & Oncology [address] [phone] Alisson Carreon MD [address] [place] [address], [facility] 2 [place] [phone] 05/04/2024 10:[address] [facility] Cardiology - [address] [place] [address] 05/04/2024 11:30 EST Appointment [facility] Hematology & Oncology [address] [address] 05/04/2024 12:00 EST Appointment [facility] Hematology & Oncology [address] [phone] 06/12/2024 13:00 EST Appointment [facility] Radiology CT - [address] [phone] documented as of this encounter Results * PULMONARY FUNCTION TESTING (11/23/2023 7:50 EDT) 11/23/2023 7:50 EDT Chelsea Logan MD PFT ORDERABLES Performing Organization Address [facility] Co de Phone Number [facility] PFT documented in this encounter Visit Diagnoses Diagnosis SOB (shortness of breath)- Primary Shortness of breath documented in this encounter Care Teams Theatrical Agent Relationship Specialty Start Date End Date Linda Blancas MD [address] [place] [address] 30 [place] [address] PCP - General 01/06/11 Adolfo Carreno MD [address] [place] [address] [phone] General Surgery 04/26/19 Augustina Colin MD PhD [address] [place] [phone] Medical Oncology 04/26/19 documented as of this encounter
--- OUTSIDE RECORDS SUMMARY | 2024-03-20 14:41 | XMS_ITS | Encounter Summary ---
Author Organization [facility] Address [address] [place] [address] Care Team Providers Care Professor Criminal Justice Name Role Phone Linda Blancas MD Primary Care Provider [phone] Adolfo Carreno MD Unavailable [phone] Augustina Colin MD PhD Unavailable Unavailable Reason for Visit * Reason Onset Date Comments Patient Outreach 10/17/2023 Encounter Details Date Type Department Care Team (Late st Contact Info) Description 10/17/2023 Telephone [facility] Cancer Center Hematology & Oncology - [facility] [address] [place], [place] [phone] Augustina Colin MD PhD Patient Outreach Social History Tobacco Use Types [...] Encounter - Ana Laura Winn RN - 10/17/2023 1612 EDT Spoke with pt. Let her know that her GI issues are valid and we do want to figure out what is going on. But with her increasing tumor marker, we cannot hold off on treatment until we resolve the GI issues, treatment is the priority. Pt understands the urgency in starting treatment, agreeable to tomorrow. Discussed take home medications, the infusion area and what to expect. Pt appreciated the phone call and will come prepared tomorrow. * Telephone Encounter - Mony Rawls - 10/17/2023 1503 EDT HemOnc Incoming Call Active Symptoms/Disease Management Call Reason: Patient called to speak with nurse regarding some questions. Patient does not have a port but she was scheduled for a port flush tomorrow. She will not be getting her port until later or not this month. Patient thought when she spoke with nurse Adrian that the priority was to deal with constipation anddistended stomach and bronchial cough. She was sent to the ED Tuesday to get tested for the GI stuff. Patient states she also sent an e-mail to Dr. Colin about EVERYTHING from the ED, which they also should have sent her copies also. Patient is confused as to what is going on. Next Appointment: Visit date not found Last Office Visit: 10/11/2023 Augustina Colin MD PhD Last Telehealth Encounter: 09/22/2023 Nadeen Blood PA-C Send ROUTINE Priority to Hem/Onc Nurse Rodger Rawls 10/17/2023 15:03 documented in this encounter Plan of Treatment Upcoming Encounters Date Type Department Care Team (Late st Contact Info) Description 04/02/2024 10:30 EDT Appointment [facility] Interventional Radiology Unit [address] [place] [address] [phone] 04/02/2024 15:15 EDT Office Visit [facility] Surgical Oncology - [address] [phone] Adolfo Carreno MD [address] [place] [address] [phone] 04/05/2024 9:30 EDT Telemedicine [facility] Palliative Care Services [address] [place] [address] [phone] Chichi Woods MD [address] [place] [address] [phone] 04/11/2024 15:00 EDT Telemedicine [facility] Hematology & Oncology - [address] [phone] Alisson Carreon MD [address] [place] [address] [phone] 04/13/2024 13:30 EDT Appointment [facility] Hematology & Oncology [address] [phone] 04/13/2024 14:00 EDT Appointment [facility] Hematology & Oncology [address] 574321 04/16/2024 10:00 EST Telemedicine [facility] Palliative Care Services [address] [place] [address] [phone] Chichi Woods MD [address] [place] [address] [place] [phone] 04/24/2024 9:00 EST Appointment [facility] Radiology CT Outpatient - [address] [id number] 04/24/2024 11:00 EST Appointment [facility] Breast Imaging - [facility] 1 [place], [place] 228711 04/27/2024 12:00 EST Appointment [facility] Hematology & Oncology [address] [phone] 05/02/2024 15:00 EST Telemedicine [facility] Hematology & Oncology [address] 986371 Alisson Carreon MD [address] [place] [address], Level [address] [place] [phone] 05/04/2024 10:15 EST Ancillary Procedure [facility] Cardiology - [address] [place], [place] [phone] 05/04/2024 11:30 EST Appointment [facility] Hematology & Oncology [address] [id number] 05/04/2024 12:00 EST Appointment [facility] Hematology & Oncology [address] [id number] 06/12/2024 13:00 EST Appointment [facility] Radiology CT - [address] [phone] documented as of this encounter Visit Diagnoses Not on filedocumented in this encounter Care Teams Professor Criminal Justice Relationship Specialty Start Date End Date Linda Blancas MD [facility] [address] [place] [address] PCP - General 01/06/11 Adolfo Carreno MD [address] [place] [address] 2 [place] [phone] General Surgery 04/26/19 Augustina Colin MD PhD [address] [place] [address] 2 [place] [phone] Medical Oncology 04/26/19 documented as of this encounter
--- OUTSIDE RECORDS SUMMARY | 2024-03-20 14:41 | XMS_ITS | Encounter Summary ---
Author Organization [facility] Address [address] [place] [address] Care Team Providers Care Lease Picker Name Role Phone Linda Blancas MD Primary Care Provider [phone] Adolfo Carreno MD Unavailable [phone] Augustina Colin MD PhD Unavailable Unavailable Reason for Visit * Reason Onset Date Comments Pain 10/14/2023 Encounter Details Date Type Department Care Team (Late st Contact Info) Description 10/14/2023 Telephone [facility] Cancer Center Hematology & Oncology - Main [place] [address] [place], [place] [phone] Augustina Colin, PhD Pain Social History Tobacco Use Types Packs/Day Years [...] encounter Miscellaneous Notes * Telephone Encounter - Kaylah Stevens RN - 10/14/2023 1206 EDT Returned call to pt. Pt has been experiencing chronic constipation, has been trying senna & colace with miralax daily with minimal effect. She reports that after taking the senna/colace she will be in excruciating abdominal pain for 3- 4hrs, doubled over on the couch. Pt also describes feeling this pain after eating. Pt has been barely able to eat, trying to eat bland and small meals. She has only been having about 1 bowel movement a day, with sometimes a second smaller bowel movement. Bowelmovements have still not been fully solid and come with some watery consistency. No bleeding with bowel movements noted. Discomfort in the abdomen to the touch, with noted bloating still, even after a BM. After consulting with Dr. Colin, it was recommended to the pt to go to the ER for evaluation.Pt agrees with this plan and confirms she will got to [facility] today. Discussed with pt that if [facility] needs anything, we have a provider on-call 03/01. Pt is grateful for the return call and the recommendation. Will reach out to pt on Tuesday for follow up, pt agrees with this plan. Provider has been updated that pt is going to the ER. * Telephone Encounter - Mony Rawls - 10/14/2023 1129 EDT [facility] Incoming Call Active Symptoms/Disease Management Reported active symptoms: Pain Rate pain 0-10 Severe (Please send high priority message and epic chat to RN with pain rating) When did you start experiencing these symptoms? Today Are they constant or intermittent? Constant Any additional patient reported details: Patient and her called to discuss the severe pain she is experiencing. Nursing unavailable. Mony Rawls 10/14/2023 11:29 documented in this encounter Plan of Treatment Upcoming Encounters Date Type Department Care Team (Late st Contact Info) Description 04/02/2024 10:30 EDT Appointment [facility] Interventional Radiology Unit [address] [place] [address] [phone] 04/02/2024 15:15 EDT Office Visit [facility] Surgical Oncology - [address] 987851 Adolfo Carreno MD [address] [place] [address] 2 [place] [phone] 04/05/2024 9:30 EDT Telemedicine [facility] Palliative Care Services [address] [place] [address] [phone] Chichi Woods MD [address] [place] [address] [phone] 04/11/2024 15:00 EDT Telemedicine [facility] Hematology & Oncology [address] [phone] Alisson Carreon MD [address] [place] [address] 2 [place] [phone] 04/13/2024 13:30 EDT Appointment [facility] Hematology & Oncology [address] [phone] 04/13/2024 14:00 EDT Appointment [facility] Hematology & Oncology [address] [id number] 04/16/2024 10:00 EST Telemedicine [facility] Palliative Care Services [address] [place], [place] 923581 Chichi Woods MD [address] [place] [address], [address] [phone] 04/24/2024 9:00 EST Appointment [facility] Radiology CT Outpatient - [address] [id number] 04/24/2024 11:00 EST Appointment [facility] Breast Imaging - [address] [id number] 04/27/2024 12:00 EST Appointment [facility] Hematology & Oncology - [address] [id number] 05/02/2024 15:00 EST Telemedicine [facility] Hematology & Oncology [address] 163061 Alisson Carreon MD [address] [place] [address], Level [address] [place] [phone] 05/04/2024 10:15 EST Ancillary Procedure [facility] Cardiology - [address] [place], [place] [phone] 05/04/2024 11:30 EST Appointment [facility] Hematology & Oncology - [address] [id number] 05/04/2024 12:00 EST Appointment [facility] Hematology & Oncology - [address] [phone] 06/12/2024 13:00 EST Appointment [facility] Radiology CT - [address] [phone] documented as of this encounter Visit Diagnoses Not on filedocumented in this encounter Care Teams Lease Picker Relationship Specialty Start Date End Date Linda Blancas MD [facility] [address] [place], [place] [phone] PCP - General 01/06/11 Adolfo Carreno MD [address] [place] [address] [phone] General Surgery 04/26/19 Augustina Colin MD PhD [address] [place] [phone] Medical Oncology 04/26/19 documented as of this encounter
--- OUTSIDE RECORDS SUMMARY | 2024-03-20 14:41 | XMS_ITS | Encounter Summary ---
Author Organization [facility] Address [address] [place] [address] Care Team Providers Care Assistant Casino Shift Manager Name Role Phone Linda Blancas MD Primary Care Provider [phone] Adolfo Carreno MD Unavailable [phone] Augustina Colin MD PhD Unavailable Unavailable Reason for Visit * Reason Onset Date Comments Follow-up 10/20/2023 Encounter Details Date Type Department Care Team (Late st Contact Info) Description 10/20/2023 Telephone [facility] Cancer Center Hematology & Oncology - Main [place] [address], [place] [phone] Zulma Acevedo RN Follow-up Social History Tobacco [...] Telephone Encounter - Zulma Acevedo RN - 10/20/2023 1356 EDT Completed VTE flowsheet. Patient scoring low risk. No further intervention needed. Message sent to scheduling to follow up on GI consult placed on 10/17. documented in this encounter Plan of Treatment Upcoming Encounters Date Type Department Care Team (Late st Contact Info) Description 04/02/2024 10:30 EDT Appointment [facility] Interventional Radiology Unit [address] [place], [place] [phone] 04/02/2024 15:15 EDT Office Visit [facility] Surgical Oncology - [address] 197321 Adolfo Carreno MD [address] [place] [address] [phone] 04/05/2024 9:30 EDT Telemedicine [facility] Palliative Care Services [address] [place] [address] [phone] Chichi Woods MD [address] [place] [address], [address] [phone] 04/11/2024 15:00 EDT Telemedicine [facility] Hematology & Oncology [address] 347351 Alisson Carreon MD [address] [place] [address] [phone] 04/13/2024 13:30 EDT Appointment [facility] Hematology & Oncology [address] [phone] 04/13/2024 14:00 EDT Appointment [facility] Hematology & Oncology [address] 355471 04/16/2024 10:00 EST Telemedicine [facility] Palliative Care Services [address] [place] [address] [phone] Chichi Woods MD [address] [place] [address] [phone] 04/24/2024 9:00 EST Appointment [facility] Radiology CT Outpatient - [address] 200431 04/24/2024 11:00 EST Appointment [facility] Breast Imaging - [facility] [address] [place], [place] 788881 04/27/2024 12:00 EST Appointment [facility] Hematology & Oncology [address] 192991 05/02/2024 15:00 EST Telemedicine [facility] Hematology & Oncology - [address] [phone] Alisson Carreon MD [address] [place] [address], Level 2 [place] [phone] 05/04/2024 10:15 EST Ancillary Procedure [facility] Cardiology [place] [address] [place] [address] 05/04/2024 11:30 EST Appointment [facility] Hematology & Oncology - [address] [phone] 05/04/2024 12:00 EST Appointment [facility] Cancer Center Hematology & Oncology - [address] [address] 06/12/2024 13:00 EST Appointment [facility] Center Radiology CT - [address] [address] documented as of this encounter Visit Diagnoses Not on filedocumented in this encounter Care Teams Assistant Casino Shift Manager Relationship Specialty Start Date End Date Linda Blancas MD [facility] [address] [place] [address] PCP - General 01/06/11 Adolfo Carreno MD [address] [place] [address], [facility] [address] [place] [phone] General Surgery 04/26/19 Augustina Colin MD PhD [address] [place] [address] 2 [place] [phone] Medical Oncology 04/26/19 documented as of this encounter
--- OUTSIDE RECORDS SUMMARY | 2024-03-20 14:41 | XMS_ITS | Encounter Summary ---
Author Organization [facility] Address [address] [place] [address] Care Team Providers Care Head Gauge Unit Operator Name Role Phone Linda Blancas MD Primary Care Provider [phone] Adolfo Carreno MD Unavailable [phone] Augustina Colin MD PhD Unavailable Unavailable Reason for Visit * Reason Onset Date Comments Follow-up 10/06/2023 Encounter Details Date Type Department Care Team (Late st Contact Info) Description 10/06/2023 Telephone [facility] Cancer Center Hematology & Oncology - Main [place] [address], [place] [phone] Kaylah Stevens, SHELLEY Follow-up Social History Tobacco Use Types Packs/Day [...] Telephone Encounter - Kaylah Stevens RN - 10/06/2023 1119 EDT Called pt, per Dr. Colin, pt should start on senna, docusate sodium and miralax for bowel medications for her continued constipation. Discussed with the pt the need to be consistent with these medications over the next few days, and then we will reassess at her next appt on Tuesday 10/10. Pt confirms and reports she will go out and get these medications right away. Also discussed taking mucinex for the pt's cough per Dr. Colin. Pt agrees with this plan. This nurse detailed, that if pt experiences any more bleeding or intense abdominal pain she can call the clinic any time for an on-call provider. Pt agrees and confirms this plan. documented in this encounter Plan of Treatment Upcoming Encounters Date Type Department Care Team (Late st Contact Info) Description 04/02/2024 10:30 EDT Appointment [facility] Interventional Radiology Unit [address] [place] [address] [phone] 04/02/2024 15:15 EDT Office Visit [facility] Surgical Oncology - [facility] [address], [place] 320051 Adolfo Carreno MD 111 [facility], Level 2 [place] [phone] 04/05/2024 9:30 EDT Telemedicine [facility] Palliative Care Services [address], [place] 695991 Chichi Woods MD [address] [place] [address] [address] [place] [phone] 04/11/2024 15:00 EDT Telemedicine [facility] Hematology & Oncology - [address] 549781 Alisson Carreon MD [address] [place] [address], Level [address] [place] [phone] 04/13/2024 13:30 EDT Appointment [facility] Hematology & Oncology [address] [phone] 04/13/2024 14:00 EDT Appointment [facility] Hematology & Oncology [address] 877781 04/16/2024 10:00 EST Telemedicine [facility] - [facility] Palliative Care Services [address] [place] [address] [phone] Chichi Woods MD [address] [place] [address] [phone] 04/24/2024 9:00 EST Appointment [facility] Radiology CT Outpatient - [address] [phone] 04/24/2024 11:00 EST Appointment [facility] Breast Imaging - [address] [phone] 04/27/2024 12:00 EST Appointment [facility] Hematology & Oncology - [address] [phone] 05/02/2024 15:00 EST Telemedicine [facility] Hematology & Oncology - [address] [phone] Alisson Carreon MD [address] [place] [address] [phone] 05/04/2024 10:15 EST Ancillary Procedure [facility] Cardiology - [place] [address] [place] [address] 05/04/2024 11:30 EST Appointment [facility] Hematology & Oncology - [address] [phone] 05/04/2024 12:00 EST Appointment [facility] Hematology & Oncology [address] [phone] 06/12/2024 13:00 EST Appointment [facility] Radiology CT - [address] 815161 documented as of this encounter Visit Diagnoses Not on filedocumented in this encounter Care Teams Head Gauge Unit Operator Relationship Specialty Start Date End Date Linda Blancas MD [facility] [address] [place] [address] PCP - General 01/06/11 Adolfo Carreno MD [address] [place] [address] [phone] General Surgery 04/26/19 Augustina Colin MD PhD [address] [place] [phone] Medical Oncology 04/26/19 documented as of this encounter
--- OUTSIDE RECORDS SUMMARY | 2024-03-20 14:41 | XMS_ITS | Encounter Summary ---
Author Organization [facility] Address [address] [place] [address] Care Team Providers Care Senior Linux Administrator Name Role Phone Linda Blancas MD Primary Care Provider [phone] Adolfo Carreno MD Unavailable [phone] Augustina Colin MD PhD Unavailable Unavailable Reason for Referral * Cardiology (Routine/Next Available) - Authorization Not Required Specialty Diagnoses / Procedures Referred By Contac t Referred To Contact Cardiology Diagnoses Malignant neoplasm of right female breast, unspecified estrogen receptor status, unspecified site of breast (HCC-CMS) Procedures TRANSTHORACIC ECHO (TTE) COMPLETE [place] ECHO TTHRC R-T 2D W/WOM-MODE COMPL SPEC&COLR D Augustina Colin MD PhD [facility] Cardiology Services [address] [place] [address] Referral ID Status Reason Start Date Expiration Date Visits Requested Visits Authorized [id number] Authorization Not Required 10/11/2023 1 1 * Consult (Routine/Next Available) - Receiving Office to Obtain Authorization Specialty Diagnoses / Procedures Referred By Contac t Referred To Contact Pulmonary Disease Diagnoses Malignant neoplasm of right female breast, unspecified estrogen receptor status, unspecified site of breast (HCC-CMS) Augustina Colin MD PhD [facility] Ep5 Pulmonology [address] [place] [address] Referral ID Status Reason Start Date Expiration Date Visits Requested Visits Authorized [id number] Receiving Office to Obtain Authorization Specialty Services Required 4 1 1 Question Answer Reason for Request: Pt w/ persistant cough and subsequent difficulty breathing Reason for Visit * Reason Comments Follow-up Encounter Details Date Type Department Care Team (Late st Contact Info) Description 10/11/2023 11:30 EDT Office Visit [facility] Cancer Center Hematology [place] [address] Augustina Colin, PhD Malignant neoplasm of right female breast, unspecified [...] Sign Reading Time Taken Comments Blood Pressure 143/67 10/11/2023 1125 EDT Pulse 82 10/11/2023 1125 EDT Temperature 36.9 ??C (98.4 ??F) 10/11/2023 1125 EDT Respiratory Rate - - Oxygen Saturation 99% 10/11/2023 1125 EDT Inhaled Oxygen Concentration - - Weight 61.4 kg (135 lb 4.8 oz) 10/11/2023 1125 E DT Height 155 cm (5' 1.02) 10/11/2023 1125 EDT Body Mass Index 25.54 10/11/2023 1125 EDT documented in this encounter Functional Status [...] Notes * Augustina Colin MD PhD - 10/11/2023 1130 EDT REASON FOR OFFICE VISIT: Discussion of side effects PROBLEM LIST: 1. 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 a. Ultrasound performed in [place] identifying an irregular heterogeneous soft tissue mass [...] breast tumor 07/07/17 and placement of tissue line director. 1.9 cm tumor at time ofsurgery, [...] >90%, [place] < 5%; HER2 2+ equivocal; [facility] FISH testing negative M. Elacestrant initiated early [...] disease in the bones. 3. DCIS in 2004 at the age of 38. This DCIS [...] clinic to discuss side effects related to Elacestrant. She has been on it for about 3 mos. She has severe constipation. She increased the laxatives and it improved. She continued miralax and has not had a BM. She has had a persistent cough. It got a little better with the steroids but remains persistent. ROS: A 10 point review of systems was obtained. Other than described in the subjective she has no concerns or issues. Medications Prior to Today's Visit Medication Sig calcium-vitamin D (OS-CHAR D) 500 mg(1,250mg) -200 unit per tablet Take 1 Tablet by mouth 2 times daily with breakfast and dinner. elacestrant 345 mg tablet Take 345 mg by mouth daily. gabapentin (NEURONTIN) 100 mg capsule Take 2 Caps by mouth 2 times daily. (Patient taking differently: Take 3 Capsules by mouth 2 times daily.) gabapentin (NEURONTIN) 600 mg tablet Take 1 Tablet by mouth every evening. ibuprofen (MOTRIN) 200 mg tablet Take 2 Tablets by mouth as needed. MULTIVITS W-CA,FE,OTHER MIN (WOMEN'S DAILY FORMULA ORAL) Take by mouth daily. mv-mn/C/glutamin/lysin/zeyq743 (AIRBORNE, ASCORBATE SODIUM, ORAL) Take by mouth as needed. OMEPRAZOLE ORAL Take 20 mg by mouth 2 times daily. prasterone, dhea, (INTRAROSA) 6.[address] 6.5 mg vaginally daily. (Patient not taking: Reported on 06/16/2023) RED YEAST RICE EXTRACT ORAL Take 1,200 [...] 2 Glasses of wine per week Objective: BP (!) 143/67 Pulse 82 Temp 36.9 ??C (98.4 ??F) (Skin) Ht 155 cm (61.02) Wt 61.4 kg (135 lb 4.8 oz) SpO2 99% BMI 25.54 kg/m?? Estimated body mass index is 25.54 kg/m?? as calculated from the following: Height as of this encounter: 155 cm (61.02). Weight as of this encounter: 61.4 kg (135 lb 4.8 oz). ECOG Performance Status: 0 General: Comfortable, cooperative and in no apparent distress NEURO: Alert and oriented x 3; Grossly neurologically intact DIAGNOSTIC DATA Phlebotomy Only on 10/11/2023 Component Date Value Ref Range Status WBC 10/11/2023 8.63 4.00 - 12.40 K/cmm Final RBC 10/11/2023 3.55 (L) 3.86 - 5.04 M/cmm Final Hemoglobin 10/11/2023 11.3 (L) 11.6 - 15.2 g/dL Final HCT 10/11/2023 35.1 34.9 - 44.4 % Final MCV 10/11/2023 99 (H) 81 - 98 fL Final MCH 10/11/2023 31.8 26.7 - 33.3 pg Final MCHC 10/11/2023 32.2 32.1 - 35.9 g/dL Final RDW-CV 10/11/2023 15.6 (H) <14.7 % Final RDW-SD 10/11/2023 56.6 (H) <50.4 fl Final PLT 10/11/2023 133 (L) 141 - 377 K/cmm Final MPV 10/11/2023 10.6 9.5 - 12.7 fL Final % Neutrophils 10/11/2023 71.4 % Final % Lymphocytes 10/11/2023 14.9 % Final % Monocytes 10/11/2023 11.0 % Final % Eosinophils 10/11/2023 2.0 % Final % Basophils 10/11/2023 0.2 % Final % Immature Grans 10/11/2023 0.5 % Final Absolute Neutrophils 10/11/2023 6.16 2.20 - 8.85 K/cmm Final Absolute Lymphocytes 10/11/2023 1.29 1.09 - 3.30 K/cmm Final Absolute Monocytes 10/11/2023 0.95 (H) 0.10 - 0.80 K/cmm Final Absolute Eosinophils 10/11/2023 0.17 0.03 - 0.61 K/cmm Final ABS Basophils 10/11/2023 0.02 0.01 - 0.11 K/cmm Final Absolute Immature Grans 10/11/2023 0.04 0.00 - 0.06 K/cmm Final Type of Differential: 10/11/2023 Auto Final Sodium 10/11/2023 141 136 - 145 mmol/L Final Potassium 10/11/2023 3.8 3.5 - 5.0 mmol/L Final Chloride 10/11/2023 109 96 - 110 mmol/L Final CO2 Total 10/11/2023 25 22 - 32 mmol/L Final Glucose 10/11/2023 113 (H) 70 - 99 mg/dl Final BUN 10/11/2023 24 10 - 26 mg/dL Final Creatinine 10/11/2023 0.71 0.52 - 1.04 mg/dL Final eGFR 10/11/2023 96 >60 mL/min/1.73m2 Final Total Protein 10/11/2023 5.8 (L) 6.3 - 8.2 g/dL Final Albumin 10/11/2023 3.0 (L) 3.4 - 4.9 g/dL Final Alkaline Phosphatase 10/11/2023 351 (H) 38 - 126 U/L Final AST 10/11/2023 89 (H) 15 - 46 U/L Final ALT 10/11/2023 61 (H) <35 U/L Final Bilirubin, Total 10/11/2023 1.2 <1.4 mg/dL Final Calcium 10/11/2023 8.6 8.5 - 10.5 mg/dL Final Magnesium 10/11/2023 2.1 1.7 - 2.8 mg/dL Final Albumin/Globulin Ratio 10/11/2023 1.1 1.0 - 2.5 Final Anion Gap 10/11/2023 7 5 - 14 mmol/L Final Cholesterol 10/11/2023 234 (H) <200 mg/dL Final Note that therapeutic goals will differ between patients based on cardiac risk factors and current medical therapy. HDL 10/11/2023 69 >=50 mg/dl Final Note that therapeutic goals will differ between patients based on cardiac risk factors and current medical therapy. LDL, Calculated 10/11/2023 135 <160 mg/dL Final Note that therapeutic goals will differ between patients based on cardiac risk factors and current medical therapy. Triglyceride 10/11/2023 149 <=150 mg/dL Final Note that therapeutic goals will differ between patients based on cardiac risk factors and current medical therapy. Chol/HDL Ratio 10/11/2023 3.4 See Note Final No reference range has been established for CHOL/HDL ratio. Non HDL Cholesterol 10/11/2023 165 (H) <160 mg/dL Final Note that therapeutic goals will differ between patients based on cardiac risk factors and current medical therapy. ASSESSMENT: Ms Bernstein is a 63-year-old female with metastatic breast cancer. She had been receiving capecitabine but was found to have progression. The lung biopsy was ER+ and HER2 negative based on FISH testing at [facility]. She has been on elacestrant about 2 months. She has constipation that is minimally improved. Her scans indicate stable disease however LFTs, persistent cough suggest progression. If her Ca 27.29 is 600 or greater we will plan to switch to Enhertu. We will get a baseline Echo. Continue Zolendronic acid every 3 mos for now. She takes a vitamin D supplement. PLAN: 1. Elacestrant 345 mg daily - Switch to enhertu based on repeat tumor marker 2. Zoledronic acid today q 3mos; Next due October 2023; Continued Vit D supplementation 3. Continued follow-up with Dr. Moya 4. Referral to pulmonology for unexplained cough 5. Obtain baseline ECHO 6. Repeat CT C/A/P December 2023 7. FUR End of October when she has zometa. Possibly sooner if we switch therapy ADDENDUM: Tumor marker from 10/10 over 800. We will switch to Enhertu. documented in this encounter Plan of Treatment Upcoming Encounters Date Type Department Care Team (Late st Contact Info) Description 04/02/2024 10:30 EDT Appointment [facility] Interventional Radiology Unit [address] [place] [address] [phone] 04/02/2024 15:15 EDT Office Visit [facility] Surgical Oncology - Main [address] [phone] Adolfo Carreno MD [address] [place] [address] 2 [place] [phone] 04/05/2024 9:30 EDT Telemedicine [facility] Palliative Care Services [address] [place] [address] [phone] Chichi Woods MD [address] [place] [address] [phone] 04/11/2024 15:00 EDT Telemedicine [facility] Hematology & Oncology - [address] [phone] Alisson Carreon MD [address] [place] [address] 2 [place] [phone] 04/13/2024 13:30 EDT Appointment [facility] Hematology & Oncology - [address] [phone] 04/13/2024 14:00 EDT Appointment [facility] Hematology & Oncology - [address] [phone] 04/16/2024 10:00 EST Telemedicine [facility] Palliative Care Services [address] [place] [address] [phone] Chichi Woods MD [address] [place] [address] [phone] 04/24/2024 9:00 EST Appointment [facility] Radiology CT Outpatient - [address] 384191 04/24/2024 11:00 EST Appointment [facility] Breast Imaging - [address] [address] 04/27/2024 12:00 EST Appointment [facility] Hematology & Oncology [address] [address] 05/02/2024 15:00 EST Telemedicine [facility] Hematology & Oncology [address] 513691 Alisson Carreon MD [address] [place] [address], Level [address] [place] [phone] 05/04/2024 10:15 EST Ancillary Procedure [facility] Cardiology - [address] [place] [address] 05/04/2024 11:30 EST Appointment [facility] Hematology & Oncology [address] [address] 05/04/2024 12:00 EST Appointment [facility] Hematology & Oncology [address] [address] 06/12/2024 13:00 EST Appointment [facility] Radiology CT [address] [address] Scheduled Orders Name Type Priority Associated Diagnoses Orde r Schedule TRANSTHORACIC ECHO (TTE) COMPLETE Echocardiography Routine Malignant neoplasm of right female breast, unspecified estrogen receptor status, unspecified site of breast ([facility]) Expected: 10/11/2023, Expires: 10/10/2025 Scheduled Referrals Name Type Priority Associated Diagnoses Order Schedule AMB CONS/FOLLOW UP PULMONARY Outpatient Referral Routine/Next Available Malignant neoplasm of right female breast, unspecified estrogen receptor status, unspecified site of breast ([facility]) Expected: 11/10/2023 (Approximate), Expires: 10/10/2024 documented as of this encounter Visit Diagnoses Diagnosis Malignant neoplasm of right female breast, unspecified estrogen receptor status, unspecified site of breast ([facility])- Primary documented in this encounter Orders Appointment Requests Count Last Ordered Date Fi rst Ordered Date [facility] INFUSION APPOINTMENT REQUEST - CALCULATED 4 12/20/2023 10/18/2023 [facility] CLINIC APPOINTMENT REQUEST 1 024 documented in this encounter Care Teams Senior Linux Administrator Relationship Specialty Start Date End Date Linda Blancas MD [address] [place] [address] 30 [place] [address] PCP - General 01/06/11 Adolfo Carreno MD [address] [place] [address] [phone] General Surgery 04/26/19 Augustina Colin MD PhD [address] [place] [phone] Medical Oncology 04/26/19 documented as of this encounter
--- OUTSIDE RECORDS SUMMARY | 2024-03-20 14:41 | XMS_ITS | Encounter Summary ---
Author Organization [facility] Address [address] [place] [address] Care Team Providers Care Television And Radio Repairer Name Role Phone Linda Blancas MD Primary Care Provider [phone] Adolfo Carreno MD Unavailable [phone] Augustina Colin MD PhD Unavailable Unavailable Reason for Visit * Reason Onset Date Comments Follow-up 10/24/2023 Encounter Details Date Type Department Care Team (Late st Contact Info) Description 10/24/2023 Telephone [facility] Cancer Center Hematology & Oncology - Main [place] [address], [place] [phone] Zulma Acevedo RN Follow-up Social History Tobacco [...] Telephone Encounter - Zulma Acevedo RN - 10/24/2023 7625 EDT Call placed to patient to check in on how she was feeling after the weekend. Pt had previously reported some constipation. No answer, left VM and sent MyChart for patient to follow up. documented in this encounter Plan of Treatment Upcoming Encounters Date Type Department Care Team (Late st Contact Info) Description 04/02/2024 10:30 EDT Appointment [facility] Interventional Radiology Unit [address] [place] [address] [phone] 04/02/2024 15:15 EDT Office Visit [facility] Surgical Oncology - [address] [phone] Adolfo Carreno MD [address] [place] [address] [phone] 04/05/2024 9:30 EDT Telemedicine [facility] - [facility] Palliative Care Services [address] [place] [address] [phone] Chichi Woods MD [address] [place] [address] [phone] 04/11/2024 15:00 EDT Telemedicine [facility] Hematology & Oncology - [address] 103951 Alisson Carreon MD [address] [place] [address] 2 [place] [phone] 04/13/2024 13:30 EDT Appointment [facility] Hematology & Oncology - [address] [phone] 04/13/2024 14:00 EDT Appointment [facility] Hematology & Oncology - [address] [phone] 04/16/2024 10:00 EST Telemedicine [facility] - [facility] Palliative Care Services [address] [place] [address] [phone] Chichi Woods MD [address] [place] [address] [phone] 04/24/2024 9:00 EST Appointment [facility] Radiology CT Outpatient - [address] [id number] 04/24/2024 11:00 EST Appointment [facility] Breast Imaging - [facility] [address] 045751 04/27/2024 12:00 EST Appointment [facility] Hematology & Oncology [address] 730301 05/02/2024 15:00 EST Telemedicine [facility] Hematology & Oncology - [address] [address] Alisson Carreon MD [address] [place] [address], Level [address] [place] [phone] 05/04/2024 10:15 EST Ancillary Procedure [facility] Cardiology - [address] [place], [place] [phone] 05/04/2024 11:30 EST Appointment [facility] Hematology & Oncology - [address] [address] 05/04/2024 12:00 EST Appointment [facility] Cancer Center Hematology & Oncology - [address] [address] 06/12/2024 13:00 EST Appointment [facility] Radiology CT - [address] [address] documented as of this encounter Visit Diagnoses Not on filedocumented in this encounter Care Teams Television And Radio Repairer Relationship Specialty Start Date End Date Linda Blancas MD [facility] [address] [place] [address] PCP - General 01/06/11 Adolfo Carreno MD [address] [place] [address], [facility] [address] [place] [phone] General Surgery 04/26/19 Augustina Colin MD PhD [address] [place] [address], [facility] [address] [place] [phone] Medical Oncology 04/26/19 documented as of this encounter
--- OUTSIDE RECORDS SUMMARY | 2024-03-20 14:41 | XMS_ITS | Encounter Summary ---
Author Organization [facility] Address [address] [place] [address] Care Team Providers Care Drill Presser Name Role Phone Linda Blancas MD Primary Care Provider [phone] Adolfo Carreno MD Unavailable [phone] Augustina Colin MD PhD Unavailable Unavailable Encounter Details Date Type Department Care Team (Late st Contact Info) Description 10/24/2023 Orders Only [facility] Radiology - Main [place] [address] [place] [address] Santo Arellano MD [address] [place] [phone] Social History Tobacco Use Types Packs/Day Years [...] [facility] Interventional Radiology Unit [address] [place] [address] [phone] 04/02/2024 15:15 EDT Office Visit [facility] Surgical Oncology - [address] [phone] Adolfo Carreno MD [address] [place] [address] 2 [place] [phone] 04/05/2024 9:30 EDT Telemedicine [facility] - [facility] Palliative Care Services [address] [place] [address] [phone] Chichi Woods MD [address] [place] [address], [address] [phone] 04/11/2024 15:00 EDT Telemedicine [facility] Hematology & Oncology [address] [phone] Alisson Carreon MD [address] [place] [address] 2 [place] [phone] 04/13/2024 13:30 EDT Appointment [facility] Hematology & Oncology [address] [phone] 04/13/2024 14:00 EDT Appointment [facility] Hematology & Oncology - [address] [phone] 04/16/2024 10:00 EST Telemedicine [facility] - [facility] Palliative Care Services [address] [place] [address] Chichi Woods MD 111 [facility], [address] [phone] 04/24/2024 9:00 EST Appointment [facility] Radiology CT Outpatient - [address] [phone] 04/24/2024 11:00 EST Appointment [facility] Breast Imaging - [facility] [place] [address] [place], [place] 336911 04/27/2024 12:00 EST Appointment [facility] Hematology & Oncology - [address] [phone] 05/02/2024 15:00 EST Telemedicine [facility] Hematology & Oncology - [address] [phone] Alisson Carreon MD [address] [place] [address], [facility], Level [address] [place] [phone] 05/04/2024 10:15 EST Ancillary Procedure [facility] Cardiology - [place] [address] 05/04/2024 11:30 EST Appointment [facility] Hematology & Oncology - [address] [phone] 05/04/2024 12:00 EST Appointment [facility] Hematology & Oncology - [address] [address] 06/12/2024 13:00 EST [facility] Rad[facility] - [address] [phone] documented as of this encounter Visit Diagnoses Not on filedocumented in this encounter Care Teams Drill Presser Relationship Specialty Start Date End Date Linda Blancas MD [address] [place] [address] 30 [place] [address] PCP - General 01/06/11 Adolfo Carreno MD [address] [place] [phone] General Surgery 04/26/19 Augustina Colin MD PhD [address] [place] [phone] Medical Oncology 04/26/19 documented as of this encounter
--- OUTSIDE RECORDS SUMMARY | 2024-03-20 14:41 | XMS_ITS | Encounter Summary ---
Author Organization [facility] Address [address] [place] [address] Care Team Providers Care Die Welder Name Role Phone Linda Blancas MD Primary Care Provider [phone] Adolfo Carreno MD Unavailable [phone] Augustina Colin MD PhD Unavailable Unavailable Reason for Visit * Reason Onset Date Comments Appointment Related 10/17/2023 Encounter Details Date Type Department Care Team (Late st Contact Info) Description 10/17/2023 Telephone [facility] Center Hematology & Oncology - Main [place] [address] [place], [place] [phone] Augustina Colin, PhD Appointment Related Social History [...] encounter Miscellaneous Notes * Telephone Encounter - Tram Muñoz - 10/17/2023 1625 EDT Called pt & informed of 11 am labs/infusion tomorrow, 10/17. Pt confirmed this time and date worked for her. documented in this encounter Plan of Treatment Upcoming Encounters Date Type Department Care Team (Late st Contact Info) Description 04/02/2024 10:30 EDT Appointment [facility] Interventional Radiology Unit [address] [place] [address] [phone] 04/02/2024 15:15 EDT Office Visit [facility] Surgical Oncology - [address] [phone] Adolfo Carreno MD [address] [place] [address] [phone] 04/05/2024 9:30 EDT Telemedicine [facility] - [facility] Palliative Care Services [address] [place] [address] [phone] Chichi Woods MD [address] [place] [address] [phone] 04/11/2024 15:00 EDT Telemedicine [facility] Hematology & Oncology - [address] [phone] Alisson Carreon MD [address] [place] [address] [phone] 04/13/2024 13:30 EDT Appointment [facility] Hematology & Oncology - [address] [phone] 04/13/2024 14:00 EDT Appointment [facility] Hematology & Oncology - [address] [phone] 04/16/2024 10:00 EST Telemedicine [facility] - [facility] Palliative Care Services [address] [place] [address] [phone] Chichi Woods MD [address] [place] [address] [phone] 04/24/2024 9:00 EST Appointment [facility] Radiology CT Outpatient - [address] [address] 04/24/2024 11:00 EST Appointment [facility] Breast Imaging - [facility] S [address] 990651 04/27/2024 12:00 EST Appointment [facility] Hematology & Oncology [address] [phone] 05/02/2024 15:00 EST Telemedicine [facility] Hematology & Oncology - [address] [address] Alisson Carreon MD [address] [place] [address], Level [address] [place] [phone] 05/04/2024 10:15 EST Ancillary Procedure [facility] Cardiology - [place] [address] 05/04/2024 11:30 EST Appointment [facility] Hematology & Oncology - [address] [phone] 05/04/2024 12:00 EST Appointment [facility] Cancer Center Hematology & Oncology - [address] 578491 06/12/2024 13:00 EST Appointment [facility] Radiology CT - [address] [address] documented as of this encounter Visit Diagnoses Not on filedocumented in this encounter Care Teams Die Welder Relationship Specialty Start Date End Date Linda Blancas MD [facility] [address] [place] [address] PCP - General 01/06/11 Adolfo Carreno MD [address] [place] [address] 2 [place] [phone] General Surgery 04/26/19 Augustina Colin MD PhD [address] [place] [address] 2 [place] [phone] Medical Oncology 04/26/19 documented as of this encounter
--- OUTSIDE RECORDS SUMMARY | 2024-03-20 14:41 | XMS_ITS | Encounter Summary ---
Author Organization [facility] Address [address] [place] [address] Care Team Providers Care Teacher Of Gifted Students Name Role Phone Linda Blancas MD Primary Care Provider [phone] Adolfo Carreno MD Unavailable [phone] Augustina Colin MD PhD Unavailable Unavailable Reason for Visit * Reason Comments Chemotherapy Education Encounter Details Date Type Department Care Team (Late st Contact Info) Description 10/18/2023 13:00 EDT Education [facility] Cancer Center Hematology & Oncology - Main [place] [address] [place], [place] [phone] Aly Zapien [address] [place] [address] Primary malignant neoplasm of breast with metastasis [...] as of this encounter Progress Notes * Aly Zapien RPH - 10/18/2023 1300 EDT Patient Education Topic: Enhertu Method: Handout and Verbal Taught to: Family and Patient Barriers: None Outcomes: independent and verbalized understanding Introductory chemotherapy education has been discussed with Sendy who presented to the clinic with her . Topics included the role of the primary nurse, contact information, the logistics of receiving chemotherapy, specific drug information including commonly reported side effects, self-care measures and signs/symptoms to report immediately. A thermometer and supplemental written information were given to the patient; the latter includes the chemo ed binder, Chemotherapy and You, and Eating Hints. Sendy has demonstrated a readiness to learn asking appropriate questions. No barriers to understanding were identified, except for an expected level of anxiety associated with a large amount of new information. ALY ZAPIEN RPH 10/19/2023 12:33 documented in this encounter Plan of Treatment Upcoming Encounters Date Type Department Care Team (Late st Contact Info) Description 04/02/2024 10:30 EDT Appointment [facility] Interventional Radiology Unit [address] [place], [place] 374461 04/02/2024 15:15 EDT Office Visit [facility] Surgical Oncology - [facility] [address] [place], [place] 166411 Adolfo Carreno MD 111 [facility], Level 2 [place] [phone] 04/05/2024 9:30 EDT Telemedicine [facility] Palliative Care Services [address] [place] [address] [phone] Chichi Woods MD [address] [place] [address] [phone] 04/11/2024 15:00 EDT Telemedicine [facility] Hematology & Oncology - [address] [phone] Alisson Carreon MD [address] [place] [address], Level [address] [place] [phone] 04/13/2024 13:30 EDT Appointment [facility] Hematology & Oncology [address] [phone] 04/13/2024 14:00 EDT Appointment [facility] Hematology & Oncology [address] [phone] 04/16/2024 10:00 EST Telemedicine [facility] Palliative Care Services [address] [place] [address] [phone] Chichi Woods MD [address] [place] [address] [phone] 04/24/2024 9:00 EST Appointment [facility] Radiology CT Outpatient - [address] 575221 04/24/2024 11:00 EST Appointment [facility] Breast Imaging - [address] 490201 04/27/2024 12:00 EST Appointment [facility] Hematology & Oncology - [address] [phone] 05/02/2024 15:00 EST Telemedicine [facility] Hematology & Oncology - [address] [phone] Alisson Carreon MD [address] [place] [address] [phone] 05/04/2024 10:15 EST Ancillary Procedure [facility] Cardiology - [address] [place] [address] 05/04/2024 11:30 EST Appointment [facility] Hematology & Oncology - [address] [phone] 05/04/2024 12:00 EST Appointment [facility] Hematology & Oncology - [address] [phone] 06/12/2024 13:00 EST Appointment [facility] Radiology CT - [address] [phone] documented as of this encounter Visit Diagnoses Diagnosis Primary malignant neoplasm of breast with metastasis (HCC-CMS)- Primary documented in this encounter Care Teams Teacher Of Gifted Students Relationship Specialty Start Date End Date Linda Blancas MD [address] [place] [address] 30 [place], [place] [phone] PCP - General 01/06/11 Adolfo Carreno MD [address] [place] [address] [phone] General Surgery 04/26/19 Augustina Colin MD PhD [address] [place] [phone] Medical Oncology 04/26/19 documented as of this encounter
--- OUTSIDE RECORDS SUMMARY | 2024-03-20 14:41 | XMS_ITS | Encounter Summary ---
Author Organization [facility] Address [address] [place] [address] Care Team Providers Care Education Counselor Name Role Phone Linda Blancas MD Primary Care Provider Adolfo Carreno MD Unavailable [phone] Augustina Colin MD PhD Unavailable Unavailable Encounter Details Date Type Department Care Team (Latest Contact Info) Description 10/18/2023 10:55 EDT Hospital Encounter [facility] Hematology & Oncology - Main [place] [address] [place], [place] 7579[address] Primary malignant neoplasm of breast with metastasis [...] Tablets by mouth as needed. 12/07/2023 mv-mn/C/glutamin/lysin /rvri067 (AIRBORNE, ASCORBATE SODIUM, ORAL) Take by mouth [...] Progress Notes * Stacy Roper RN - 10/18/2023 1100 EDT 24G PIV placed to Right forearm after X1 attempt. Placement was done using aseptic technique. Labs were drawn per standing order. Transparent dressing applied. PIV remains in place for infusion scheduled today. Pt tolerated well and sent to waiting room. I was supervised by Dr. Tong who was present and immediately available in the office suite. STACY ROPER RN 10/18/2023 documented in this encounter Plan of Treatment Upcoming Encounters Date Type Department Care Team (Late st Contact Info) Description 04/02/2024 10:30 EDT Appointment [facility] Interventional Radiology Unit [address] [place], [place] [phone] 04/02/2024 15:15 EDT Office Visit [facility] Surgical Oncology - [address] 742841 Adolfo Carreno MD 111 [facility], Level 2 [place] [phone] 04/05/2024 9:30 EDT Telemedicine [facility] Palliative Care Services [address] [place], [place] [phone] Chichi Woods MD 111 [facility] [address] [place] [phone] 04/11/2024 15:00 EDT Telemedicine [facility] Hematology & Oncology [facility] [address] [place], [place] 374621 Alisson Carreon MD [address] [place] [address], [facility] 2 [place] [phone] 04/13/2024 13:30 EDT Appointment [facility] Hematology & Oncology - [address] 103311 04/13/2024 14:00 EDT Appointment [facility] Hematology & Oncology - [address] [phone] 04/16/2024 10:00 EST Telemedicine [facility] [address] [place] [address] [phone] Chichi Woods MD [address] [place] [address], [address] [phone] 04/24/2024 9:00 EST Appointment [facility] Radiology CT Outpatient - [address] [id number] 04/24/2024 11:00 EST Appointment [facility] Breast Imaging - [facility] [address] 934651 04/27/2024 12:00 EST Appointment [facility] Hematology & Oncology - [address] 549201 05/02/2024 15:00 EST Telemedicine [facility] Hematology & Oncology - [address] 777371 Alisson Carreon MD [address] [place] [address], [facility] 2 [place] [phone] 05/04/2024 10:15 EST Ancillary Procedure [facility] Cardiology - [address] [place], [place] [phone] 05/04/2024 11:30 EST Appointment [facility] Hematology & Oncology - [address] [address] 05/04/2024 12:00 EST Appointment [facility] Hematology & Oncology - [address] [address] 06/12/2024 13:00 EST Appointment [facility] Radiology CT - [address] [address] documented as of this encounter Procedures Procedure Name Priority Date/Time Associated Diagnosis Comments COMPREHENSIVE METABOLIC PANEL (ONCOLOGY USE ONLY-INC MG) STAT 10/18/2023 11:01 EDT Primary malignant neoplasm of breast with metastasis (HCC-CMS) COMPLETE BLOOD COUNT AND DIFFERENTIAL STAT 10/18/2023 11:01 EDT Primary malignant neoplasm of breast with metastasis (HCC-CMS) documented in this encounter Results * (ABNORMAL) COMPREHENSIVE METABOLIC PANEL (ONCOLOGY USE ONLY-INC MG) (10/18/2023 11:01 EDT) Sodium 141 136 - 145 mmol/L 10/18/2023 11:45 [facility] Potassium 3.7 3.5 - 5.0 mmol/L 10/18/2023 11:45 [facility] Chloride 111(H) 96 - 110 mmol/L 10/18/2023 11:45 [facility] CO2 Total 21(L) 22 - 32 mmol/L 10/18/2023 11:45 [facility] Glucose 95 70 - 99 mg/dl 10/18/2023 11:45 [facility] BUN 14 10 - 26 mg/dL 10/18/2023 11:45 [facility] Creatinine 0.58 0.52 - 1.04 mg/dL 10/18/2023 11:45 [facility] eGFR 102 >60 mL/min/1.7 3m2 10/18/2023 11:45 [facility] Total Protein 6.4 6.3 - 8.2 g/dL 10/18/2023 11:45 [facility] Albumin 3.2(L) 3.4 - 4.9 g/dL 10/18/2023 11:45 [facility] Alkaline Phosphatase 380(H) 38 - 126 U/L 10/18/2023 11:45 [facility] AST 139(H) 15 - 46 U/L 10/18/2023 11:45 [facility] ALT 79(H) <35 U/L 10/18/2023 11:45 [facility] Bilirubin, Total 1.5(H) <1.4 mg/dL 10/18/19 11:45 [facility] Calcium 9.1 8.5 - 10.5 mg/dL 10/18/2023 11:45 [facility] Magnesium 2.0 1.7 - 2.8 mg/dL 10/18/2023 11:45 [facility] Albumin/Globulin Ratio 1.0 1.0 - 2.5 10/18/2023 11:45 [facility] Anion Gap 9 5 - 14 mmol/L 10/18/2023 11:45 [facility] Blood BLOOD SAMPLE TAKEN FROM CENTRAL LINE / Unknown Port / Unknown 10/18/2023 11:01 EDT 10/18/2023 11:15 EDT Augustina Colin MD PhD CHEMISTRY & BLOOD GA S ORDERABLES [facility] [address] [place] [address] * (ABNORMAL) COMPLETE BLOOD COUNT AND DIFFERENTIAL (10/18/2023 11:01 EDT) WBC 7.40 4.00 - 12.40 K/cmm 10/18/2023 11:31 [facility] RBC 3.59(L) 3.86 - 5.04 M/cmm 10/18/2023 11:31 [facility] Hemoglobin 11.1(L) 11.6 - 15.2 g/dL 10/18/2023 11:31 [facility] HCT 34.4(L) 34.9 - 44.4 % 10/18/2023 11:31 [facility] MCV 96 81 - 98 fL 10/18/2023 11:31 [facility] MCH 30.9 26.7 - 33.3 pg 10/18/2023 11:31 [facility] MCHC 32.3 32.1 - 35.9 g/dL 10/18/2023 11:31 [facility] RDW-CV 16.0(H) <14.7 % 10/18/2023 11:31 [facility] RDW-SD 56.1(H) <50.4 fl 10/18/2023 11:31 [facility] PLT 163 141 - 377 K/cmm 10/18/2023 11:31 [facility] MPV 10.8 9.5 - 12.7 fL 10/18/2023 11:31 [facility] % Neutrophils 69.5 % 10/18/2023 11:31 [facility] % Lymphocytes 15.0 % 10/18/2023 11:31 [facility] % Monocytes 12.2 % 10/18/2023 11:31 [facility] % Eosinophils 2.3 % 10/18/2023 11:31 [facility] % Basophils 0.7 % 10/18/2023 11:31 [facility] % Immature Grans 0.3 % 10/18/19 11:31 [facility] Absolute Neutrophils 5.15 2.20 - 8.85 K/cmm 10/18/2023 11:31 [facility] Absolute Lymphocytes 1.11 1.09 - 3.30 K/cmm 10/18/2023 11:31 [facility] Absolute Monocytes 0.90(H) 0.10 - 0.80 K/cmm 10/18/2023 11:31 EDT [facility] Absolute Eosinophils 0.17 0.03 - 0.61 K/cmm 10/18/2023 11:31 EDT [facility] ABS Basophils 0.05 0.01 - 0.11 K/cm 10/18/2023 11:31 EDT [facility] Absolute Immature Grans 0.02 0.00 - 0.06 K/[facility] 10/18/2023 11:31 EDT [facility] Type of Differential: Auto 10/18/2023 11:31 EDT [facility] Blood BLOOD SAMPLE TAKEN FROM CENTRAL LINE / Unknown Port / Unknown 10/18/2023 11:01 EDT 10/18/2023 11:15 EDT Augustina Colin MD PhD PACKAGES & DNA PROBE ORDERABLES [facility] [address] [place] [address] documented in this encounter Visit Diagnoses Diagnosis Primary malignant neoplasm of breast with metastasis (HCC-CMS) documented in this encounter Care Teams Education Counselor Relationship Specialty Start Date End Date Linda Blancas MD [address] [place] [address] 30 [place] [address] PCP - General 01/06/11 Adolfo Carreno MD [address] [place] [phone] General Surgery 04/26/19 Augustina Colin MD PhD [address] [place] [phone] Medical Oncology 04/26/19 documented as of this encounter
--- OUTSIDE RECORDS SUMMARY | 2024-03-20 14:42 | XMS_ITS | Encounter Summary ---
Author Organization [facility] Address [address] [place] [address] Care Team Providers Care Customer Marketing Intern Name Role Phone Linda Blancas MD Primary Care Provider [phone] Adolfo Carreno MD Unavailable [phone] Augustina Colin MD PhD Unavailable Unavailable Reason for Visit * Reason Onset Date Comments Appointment Related 09/30/2023 Encounter Details Date Type Department Care Team (Late st Contact Info) Description 09/30/2023 Telephone [facility] Center Hematology & Oncology - Main [place] [address] [place], [place] [phone] Augustina Colin, PhD Appointment Related Social History [...] encounter Miscellaneous Notes * Telephone Encounter - Nilson Arciniega - 09/30/2023 1429 EDT Spoke with pt she is aware 10/[address] scans left PAC# documented in this encounter Plan of Treatment Upcoming Encounters Date Type Department Care Team (Late st Contact Info) Description 04/02/2024 10:30 EDT Appointment [facility] Interventional Radiology Unit [address] [place] [address] 04/02/2024 15:15 EDT Office Visit [facility] Surgical Oncology - [facility] [address] [place], [place] [phone] Adolfo Carreno MD [address] [place] [address] 2 [place] [phone] 04/05/2024 9:30 EDT Telemedicine [facility] - [facility] Palliative Care Services [address] [place] [address] Chichi Woods MD [address] [place] [address], [address] [phone] 04/11/2024 15:00 EDT Telemedicine [facility] Hematology & Oncology [address] [phone] Alisson Carreon MD [address] [place] [address] 2 [place] [phone] 04/13/2024 13:30 EDT Appointment [facility] Hematology & Oncology - [address] [address] 04/13/2024 14:00 EDT Appointment [facility] Hematology & Oncology [address] [address] 04/16/2024 10:00 EST Telemedicine [facility] - [facility] Palliative Care Services [address] [place] [address] [phone] Chichi Woods MD [address] [place] [address], [address] [phone] 04/24/2024 9:00 EST Appointment [facility] Radiology CT Outpatient - [address] 106821 04/24/2024 11:00 EST Appointment [facility] Breast Imaging - [facility] [place] 1 [place], [place] [address]2941 04/27/2024 12:00 EST Appointment [facility] Hematology & Oncology - [address] 827251 05/02/2024 15:00 EST Telemedicine [facility] Hematology & Oncology [address] [phone] Alisson Carreon MD [address] [place] [address], [facility], Level [address] [place] [phone] 05/04/2024 10:15 EST Ancillary Procedure [facility] Cardiology - [place] [address] 05/04/2024 11:30 EST Appointment [facility] Hematology & Oncology - [address] [phone] 05/04/2024 12:00 EST Appointment [facility] Hematology & Oncology - [address] [address]1971 06/12/2024 13:00 EST Appointment [facility] Radiology CT - [address] 753641 documented as of this encounter Visit Diagnoses Not on filedocumented in this encounter Care Teams Customer Marketing Intern Relationship Specialty Start Date End Date Linda Blancas MD [facility] [address] [place], [place] 0050[address] PCP - General 01/06/11 Adolfo Carreno MD [address] [place] [phone] General Surgery 04/26/19 Augustina Colin MD PhD [address] [place] [address] 2 [place] [phone] Medical Oncology 04/26/19 documented as of this encounter
--- OUTSIDE RECORDS SUMMARY | 2024-03-20 14:42 | XMS_ITS | Encounter Summary ---
Author Organization [facility] Address [address] [place] [address] Care Team Providers Care Music Adapter Name Role Phone Linda Blancas MD Primary Care Provider [phone] Adolfo Carreno MD Unavailable [phone] Augustina Colin MD PhD Unavailable Unavailable Encounter Details Date Type Department Care Team (Late st Contact Info) Description 08/15/2023 Orders Only [facility] Radiology - Main [place] [address] [place] [address] Keith Chauhan MD [address] [place] [phone] Social History Tobacco Use Types [...] [facility] [address] [place] [address]451 04/02/2024 15:15 EDT Office Visit [facility] Surgical Oncology - [address] 967451 Adolfo Carreno MD [address] [place] [address] 2 [place] [phone] 04/05/2024 9:30 EDT Telemedicine [facility] Palliative Care Services [address] [place] [address] [phone] Chichi Woods MD [address] [place] [address], [address] [phone] 04/11/2024 15:00 EDT Telemedicine [facility] Hematology & Oncology [address] 938361 Alisson Carreon MD [address] [place] [address] 2 [place] [phone] 04/13/2024 13:30 EDT Appointment [facility] Hematology & Oncology [address] [phone] 04/13/2024 14:00 EDT Appointment [facility] Hematology & Oncology - [address] [phone] 04/16/2024 10:00 EST Telemedicine [facility] Palliative Care Services [address] [place], [place] 2460[address] Chichi Woods MD 111 [facility], [address] [phone] 04/24/2024 9:00 EST Appointment [facility] Radiology CT Outpatient - [address] 853191 04/24/2024 11:00 EST Appointment [facility] Breast Imaging - [facility] S [address] 684691 04/27/2024 12:00 EST Appointment [facility] Hematology & Oncology - [address] 168281 05/02/2024 15:00 EST Telemedicine [facility] Hematology & Oncology - [address] 509041 Alisson Carreon MD [address] [place] [address], Level 2 [place] [phone] 05/04/2024 10:15 EST Ancillary Procedure [facility] Cardiology - [place] [place] [address] 05/04/2024 11:30 EST Appointment [facility] Hematology & Oncology - [address] [phone] 05/04/2024 12:00 EST Appointment [facility] Hematology & Oncology - [address] [address] 06/12/2024 13:00 EST Appointment [facility] Radiology CT - [address] 655301 documented as of this encounter Visit Diagnoses Not on filedocumented in this encounter Care Teams Music Adapter Relationship Specialty Start Date End Date Linda Blancas MD [address] [place] [address] 30 [place] [address] PCP - General 01/06/11 Adolfo Carreno MD [address] [place] [phone] General Surgery 04/26/19 Augustina Colin MD PhD [address] [place] [phone] Medical Oncology 04/26/19 documented as of this encounter
--- OUTSIDE RECORDS SUMMARY | 2024-03-20 14:42 | XMS_ITS | Encounter Summary ---
Author Organization [facility] Address [address] [place] [address] Care Team Providers Care Granite Polisher Machine Name Role Phone Linda Blancas MD Primary Care Provider [phone] Adolfo Carreno MD Unavailable [phone] Augustina Colin MD PhD Unavailable Unavailable Reason for Visit * Reason Onset Date Comments Medication Management 09/29/2023 Encounter Details Date Type Department Care Team (Late st Contact Info) Description 09/29/2023 Telephone [facility] Cancer Center Hematology & Oncology - Main [place] [address] [place], [place] [address] Augustina Colin, PhD Medication Management Social History Tobacco Use Types [...] Telephone Encounter - Kaylah Stevens RN - 09/29/2023 1633 EDT See other encounter from today for further information. * Telephone Encounter - Kamlesh Connor - 09/29/2023 1600 EDT The patient's doctor is having her taper prednisone for 9 days because of a cough. She would like to know if she should be stopping her cancer medication. Please call to discuss documented in this encounter Plan of Treatment Upcoming Encounters Date Type Department Care Team (Late st Contact Info) Description 04/02/2024 10:30 EDT Appointment [facility] Interventional Radiology Unit [address] [place] [phone] 04/02/2024 15:15 EDT Office Visit [facility] Surgical Oncology - [address] [phone] Adolfo Carreno MD 111 [facility], Level 2 [place] [phone] 04/05/2024 9:[address] [facility] Palliative Care Services [address] [place], [place] [phone] Chichi Woods MD [address] [facility], [address] [phone] 04/11/2024 15:[address] [facility] Hematology & Oncology - [address] 718361 Alisson Carreon MD [address] [place] [address] 2 [place] [phone] 04/13/2024 13:[address] [facility] Hematology & Oncology - [address] 564671 04/13/2024 14:[address] [facility] Hematology & Oncology [address] [phone] 04/16/2024 10:00 EST Telemedicine [facility] - [facility] Palliative Care Services [address] [place] [address]391 Chichi Woods MD [address] [place] [phone] 04/24/2024 9:00 EST Appointment [facility] Radiology CT Outpatient - [address] [id number] 04/24/2024 11:00 EST Appointment [facility] Breast Imaging - [address] [id number] 04/27/2024 12:[address] [facility] Hematology & Oncology - [address] 425361 05/02/2024 15:[address] [facility] Hematology & Oncology - [address] 442141 Alisson Carreon MD [address] [place] [address], [facility] 2 [place] [phone] 05/04/2024 10:15 EST Ancillary Procedure [facility] Cardiology - [address] [place] [address] 05/04/2024 11:[address] [facility] Hematology & Oncology - [address] [address] 05/04/2024 12:[address] [facility] Hematology & Oncology [address] [address] 06/12/2024 13:00 EST Appointment [facility] Radiology CT - [address] 866171 documented as of this encounter Visit Diagnoses Not on filedocumented in this encounter Care Teams Granite Polisher Machine Relationship Specialty Start Date End Date Linda Blancas MD [facility] [address] [place] [address] PCP - General 01/06/11 Adolfo Carreno MD [address] [place] [phone] General Surgery 04/26/19 Augustina Colin MD PhD [address] [place] [phone] Medical Oncology 04/26/19 documented as of this encounter
--- OUTSIDE RECORDS SUMMARY | 2024-03-20 14:42 | XMS_ITS | Encounter Summary ---
Author Organization [facility] Address [address] [place] [address] Care Team Providers Care Lapel Padder Name Role Phone Linda Blancas MD Primary Care Provider [phone] Adolfo Carreno MD Unavailable [phone] Augustina Colin MD PhD Unavailable Unavailable Encounter Details Date Type Department Care Team (Late st Contact Info) Description 08/15/2023 10:15 EST Phlebotomy Only [facility] ED Center 2 Phlebotomy [address] [place], [place] [address] Bag Grader, Acc Phlebotomy Malignant neoplasm of right female [...] Appointment [facility] Interventional Radiology Unit [address] [place] [address] [phone] 04/02/2024 15:15 EDT Office Visit [facility] Surgical Oncology - [address] [phone] Adolfo Carreno MD [address] [place] [address] 2 [place] [phone] 04/05/2024 9:30 EDT Telemedicine [facility] - [facility] Palliative Care Services [address] [place] [address] [phone] Chichi Woods MD [address] [place] [phone] 04/11/2024 15:00 EDT Telemedicine [facility] Hematology & Oncology [address] [phone] Alisson Carreon MD [address] [place] [address] 2 [place] [phone] 04/13/2024 13:30 EDT Appointment [facility] Hematology & Oncology [address] [phone] 04/13/2024 14:00 EDT Appointment [facility] Hematology & Oncology - [address] [address] 04/16/2024 10:00 EST Telemedicine [facility] - [facility] Palliative Care Services [address] [place], [place] 579731 Chichi Woods MD 111 [facility], [address] [phone] 04/24/2024 9:00 EST Appointment [facility] Radiology CT Outpatient - [address] [address] 04/24/2024 11:00 EST Appointment [facility] Breast Imaging - [address] 635241 04/27/2024 12:00 EST Appointment [facility] Hematology & Oncology - [address] 908311 05/02/2024 15:00 EST Telemedicine [facility] Hematology & Oncology - [address] [phone] Alisson Carreon MD [address] [place] [address], Level 2 [place] [phone] 05/04/2024 10:15 EST Ancillary Procedure [facility] Cardiology [place] [address] [place] [address] 05/04/2024 11:30 EST Appointment [facility] Hematology & Oncology - [address] [address] 05/04/2024 12:00 EST Appointment [facility] Hematology & Oncology - [address] [address] 06/12/2024 13:00 EST Appointment [facility] Radiology CT - Main [address] [address] documented as of this encounter Procedures Procedure Name Priority Date/Time Associated Diagnosis Comments COMPREHENSIVE METABOLIC PANEL (ONCOLOGY USE ONLY-INC MG) STAT 08/15/2023 10:26 EST Primary malignant neoplasm of breast with metastasis (HCC-CMS) CA 27.29 STAT 08/15/2023 10:26 EST Malignant neoplasm of right female breast, unspecified estrogen receptor status, unspecified site of breast (HCC-CMS) COMPLETE BLOOD COUNT AND DIFFERENTIAL STAT 08/15/2023 10:26 EST Primary malignant neoplasm of breast with metastasis (HCC-CMS) LIPID PROFILE (INCLUDES CHOLESTEROL, TRIGLYCERIDES, HDL, LDL) STAT 08/15/2023 10:26 EST Encounter for long-term current use of medication documented in this encounter Results * LIPID PROFILE (INCLUDES CHOLESTEROL, TRIGLYCERIDES, HDL, LDL) (08/15/2023 10:26 EST) Cholesterol 191 <200 mg/dL 08/15/2023 10:52 [facility] Comment:Note that therapeuti c goals will differ between patients based on cardiac risk factors and current medical therapy. HDL 52 >=50 mg/dl 08/15/2023 10:52 [facility] Comment:Note that therapeuti c goals will differ between patients based on cardiac risk factors and current medical therapy. LDL, Calculated 119 <160 mg/dL 10:52 [facility] Comment:Note that therapeuti c goals will differ between patients based on cardiac risk factors and current medical therapy. Triglyceride 100 <=150 mg/dL 08/15/2023 10:52 [facility] Comment:Note that therapeuti c goals will differ between patients based on cardiac risk factors and current medical therapy. Chol/HDL Ratio 3.7 See Note 08/15/2023 10:52 [facility] Comment:No reference range h as been established for CHOL/HDL ratio. Non HDL Cholesterol 139 <160 mg/dL 08/15/2023 10:52 [facility] Comment:Note that therapeuti c goals will differ between patients based on cardiac risk factors and current medical therapy. Blood VENOUS BLOOD / Unknown Venipuncture / Unknown 08/15/2023 10:26 EST 08/15/2023 10:34 EST Augustina Colin MD PhD CHEMISTRY & BLOOD GA S ORDERABLES [facility] [address] [place] [address] * (ABNORMAL) COMPREHENSIVE METABOLIC PANEL (ONCOLOGY USE ONLY-INC MG) (08/15/2023 10:26 EST) Sodium 141 136 - 145 mmol/L 08/15/2023 10:52 [facility] Potassium 4.0 3.5 - 5.0 mmol/L 08/15/2023 10:52 [facility] Chloride 109 96 - 110 mmol/L 08/15/2023 10:52 [facility] CO2 Total 29 22 - 32 mmol/L 08/15/2023 10:52 [facility] Glucose 86 70 - 99 mg/dl 08/15/2023 10:52 [facility] BUN 20 10 - 26 mg/dL 08/15/2023 10:52 [facility] Creatinine 0.61 0.52 - 1.04 mg/dL 08/15/2023 10:52 [facility] eGFR 101 >60 mL/min/1.7 3m2 08/15/2023 10:52 [facility] Total Protein 6.1(L) 6.3 - 8.2 g/dL 08/15/2023 10:52 [facility] Albumin 3.2(L) 3.4 - 4.9 g/dL 08/15/2023 10:52 [facility] Alkaline Phosphatase 179(H) 38 - 126 U/L 08/15/2023 10:52 [facility] AST 62(H) 15 - 46 U/L 08/15/2023 10:52 [facility] ALT 24 <35 U/L 08/15/2023 10:52 [facility] Bilirubin, Total 1.3 <1.4 mg/dL 08/15/19 24 10:52 [facility] Calcium 8.6 8.5 - 10.5 mg/dL 08/15/2023 10:52 [facility] Magnesium 2.0 1.7 - 2.8 mg/dL 08/15/2023 10:52 [facility] Albumin/Globulin Ratio 1.1 1.0 - 2.5 08/15/2023 10:52 [facility] Anion Gap 3(L) 5 - 14 mmol/L 08/15/2023 10:52 [facility] Blood VENOUS BLOOD / Unknown Venipuncture / Unknown 08/15/2023 10:26 EST 08/15/2023 10:34 EST Augustina Colin MD PhD CHEMISTRY & BLOOD GA S ORDERABLES Performing Organization Address City/State/[facility] Co de Phone Number [facility] [address] [place] [address] * (ABNORMAL) COMPLETE BLOOD COUNT AND DIFFERENTIAL (08/15/2023 10:26 EST) WBC 5.64 4.00 - 12.40 K/cmm 08/15/2023 10:53 [facility] RBC 3.03(L) 3.86 - 5.04 M/cmm 08/15/2023 10:53 [facility] Hemoglobin 11.1(L) 11.6 - 15.2 g/dL 08/15/2023 10:53 [facility] HCT 32.6(L) 34.9 - 44.4 % 08/15/2023 10:53 [facility] MCV 108(H) 81 - 98 fL 08/15/2023 10:53 [facility] MCH 36.6(H) 26.7 - 33.3 pg 08/15/2023 10:53 [facility] MCHC 34.0 32.1 - 35.9 g/dL 08/15/2023 10:53 [facility] RDW-CV 17.4(H) <14.7 % 08/15/2023 10:53 [facility] RDW-SD 69.2(H) <50.4 fl 08/15/2023 10:53 [facility] PLT 127(L) 141 - 377 K/cmm 08/15/2023 10:53 [facility] MPV 10.1 9.5 - 12.7 fL 08/15/2023 10:53 [facility] % Neutrophils 64.3 % 08/15/2023 10:53 [facility] % Lymphocytes 17.6 % 08/15/2023 10:53 [facility] % Monocytes 15.1 % 08/15/2023 10:53 [facility] % Eosinophils 2.1 % 08/15/2023 10:53 [facility] % Basophils 0.7 % 08/15/2023 10:53 [facility] % Immature Grans 0.2 % 08/15/19 24 10:53 [facility] Absolute Neutrophils 3.63 2.20 - 8.85 K/cmm 08/15/2023 10:53 [facility] Absolute Lymphocytes 0.99(L) 1.09 - 3.30 K/cmm 08/15/2023 10:53 [facility] Absolute Monocytes 0.85(H) 0.10 - 0.80 K/cmm 08/15/2023 10:53 [facility] Absolute Eosinophils 0.12 0.03 - 0.61 K/cmm 08/15/2023 10:53 [facility] ABS Basophils 0.04 0.01 - 0.11 K/cmm 08/15/2023 10:53 [facility] Absolute Immature Grans 0.01 0.00 - 0.06 K/cmm 08/15/2023 10:53 [facility] Type of Differential: Auto 08/15/2023 10:53 [facility] Blood VENOUS BLOOD / Unknown Venipuncture / Unknown 08/15/2023 10:26 EST 08/15/2023 10:34 EST Augustina Colin MD PhD PACKAGES & DNA PROBE ORDERABLES Performing Organization Address City/[facility]/ZIP Co de Phone Number [facility] [address] [place] [address] * (ABNORMAL) CA 27.29 (08/15/2023 10:26 EST) CA 27.29 299.2(H) <38.0 U/mL 08/15/2023 11:58 EST [facility] Comment: NOTE: Serum CA 27.29 concentration should not be interpreted as absolute evidence for the presence or absence of malignant disease. Assayed on [email or web address] XPT using chemiluminescent technology. ??Values obtained by using different assay methods cannot be used interchangeably. Blood VENOUS BLOOD / Unknown Venipuncture / Unknown 08/15/2023 10:26 EST 08/15/2023 10:34 EST Augustina Colin MD PhD CHEMISTRY & BLOOD GA S ORDERABLES Performing Organization Address City/[facility]/ZIP Co de Phone Number [facility] [address] [place] [address] documented in this encounter Visit Diagnoses Diagnosis Malignant neoplasm of right female breast, unspecified estrogen receptor status, unspecified site of breast (HCC-CMS) Primary malignant neoplasm of breast with metastasis (HCC-CMS) Encounter for long-term current use of medication documented in this encounter Care Teams Lapel Padder Relationship Specialty Start Date End Date Linda Blancas MD [facility] [address] [place] [address] PCP - General 01/06/11 Adolfo Carreno MD 111 [facility], [facility], Level 2 [place] [phone] General Surgery 04/26/19 Augustina Colin MD PhD 111 [facility], [facility] 2 [place] [address] Medical Oncology 04/26/19 documented as of this encounter
--- OUTSIDE RECORDS SUMMARY | 2024-03-20 14:42 | XMS_ITS | Encounter Summary ---
Author Organization [facility] Address [address] [place] [address] Care Team Providers Care Soaking Pit Operator Name Role Phone Linda Blancas MD Primary Care Provider [phone] Adolfo Carreno MD Unavailable [phone] Augustina Colin MD PhD Unavailable Unavailable Encounter Details Date Type Department Care Team (Late st Contact Info) Description 08/15/2023 Orders Only [facility] Radiology - Main [place] [address] [place] [address] Keith Chauhan MD [address] [place] [phone] Social History Tobacco Use Types [...] Info) Description 04/02/2024 10:30 EDT Appointment [facility] Interventional Radiology Unit [address] [place] [address] [phone] 04/02/2024 15:15 EDT Office Visit [facility] Surgical Oncology - [address] [address] Adolfo Carreno MD [address] [place] [address] 2 [place] [phone] 04/05/2024 9:30 EDT Telemedicine [facility] - [facility] Palliative Care Services [address] [place] [address] [phone] Chichi Woods MD [address] [place] [address], [address] [phone] 04/11/2024 15:00 EDT Telemedicine [facility] Hematology & Oncology [address] 233011 Alisson Carreon MD [address] [place] [address] 2 [place] [phone] 04/13/2024 13:30 EDT Appointment [facility] Hematology & Oncology [address] 552161 04/13/2024 14:00 EDT Appointment [facility] Hematology & Oncology - [address] [phone] 04/16/2024 10:00 EST Telemedicine [facility] - [facility] Palliative Care Services [address] [place], [place] 033[address] Chichi Woods MD 111 [facility], [address] [phone] 04/24/2024 9:00 EST Appointment [facility] Radiology CT Outpatient - [address] [id number] 04/24/2024 11:00 EST Appointment [facility] Breast Imaging - [facility] [address] 609791 04/27/2024 12:00 EST Appointment [facility] Hematology & Oncology - [address] 656241 05/02/2024 15:00 EST Telemedicine [facility] Hematology & Oncology - [address] [phone] Alisson Carreon MD [address] [place] [address], Level 2 [place] [phone] 05/04/2024 10:15 EST Ancillary Procedure [facility] Cardiology - [place] [address] 05/04/2024 11:30 EST Appointment [facility] Hematology & Oncology - [address] [phone] 05/04/2024 12:00 EST Appointment [facility] Hematology & Oncology - [address] [address] 06/12/2024 13:00 EST Appointment [facility] Radiology CT - [address] 590391 documented as of this encounter Visit Diagnoses Not on filedocumented in this encounter Care Teams Soaking Pit Operator Relationship Specialty Start Date End Date Linda Blancas MD [address] [place] [address] 30 [place] [address] PCP - General 01/06/11 Adolfo Carreno MD [address] [place] [phone] General Surgery 04/26/19 Augustina Colin MD PhD [address] [place] [phone] Medical Oncology 04/26/19 documented as of this encounter
--- OUTSIDE RECORDS SUMMARY | 2024-03-20 14:42 | XMS_ITS | Encounter Summary ---
Author Organization [facility] Address [address] [place] [address] Care Team Providers Care Social Media Editor Name Role Phone Linda Blancas MD Primary Care Provider [phone] Adolfo Carreno MD Unavailable [phone] Augustina Colin MD PhD Unavailable Unavailable Reason for Visit * Reason Onset Date Comments Follow-up 09/29/2023 Encounter Details Date Type Department Care Team (Late st Contact Info) Description 09/29/2023 Telephone [facility] Hematology & Oncology - Main [place] [address] [place], [place] [phone] Kaylah Stevens, SHELLEY Follow-up Social History Tobacco [...] Encounter - Kaylah Stevens RN - 09/29/2023 7063 EDT Returned call to pt. Pt reports she is starting a prednisone taper and wanted to confirm she can continue elacestrant. Per Dr. Colin pt can continue, pt agrees. Discussed bloating/wt gain. Pt reports this goes up and down with her constipation. She lost 2.5lbs when she had a BM after 1 week of constipation. However, it has been a few days with no BM again, and now she is up 2lbs. She started metamucil today. Pt plans to follow her weight, f/u with PCP about constipation and will reach out if drastic fluctuations in her weight occur. Also discussed with pt, recent tumor marker labs. There wasa jump in the marker and Dr. Colin would like to move up her CT scans. Pt is aware, scheduling will reach out once scans have been rescheduled. Will update provider on pt condition as well. documented in this encounter Plan of Treatment Upcoming Encounters Date Type Department Care Team (Late st Contact Info) Description 04/02/2024 10:30 EDT Appointment [facility] Interventional Radiology Unit [address] [place], [place] [phone] 04/02/2024 15:15 EDT Office Visit [facility] Surgical Oncology - [facility] [address] [place], [place] [phone] Adolfo Carreno MD 111 [facility], Level 2 [place] [phone] 04/05/2024 9:30 EDT Telemedicine [facility] Palliative Care Services [address] [place] [address] [phone] Chichi Woods MD [address] [place] [phone] 04/11/2024 15:00 EDT Telemedicine [facility] Hematology & Oncology - [address] [phone] Alisson Carreon MD [address] [place] [address], Level [address] [place] [phone] 04/13/2024 13:30 EDT Appointment [facility] Hematology & Oncology [address] [address] 04/13/2024 14:00 EDT Appointment [facility] Hematology & Oncology [address] [phone] 04/16/2024 10:00 EST Telemedicine [facility] Palliative Care Services [address] [place] [address] 165931 Chichi Woods MD [address] [place] [phone] 04/24/2024 9:[address] [facility] Radiology CT Outpatient - [address] [id number] 04/24/2024 11:00 EST Appointment [facility] Breast Imaging - [address] [id number] 04/27/2024 12:00 EST Appointment [facility] Hematology & Oncology [address] [id number] 05/02/2024 15:00 EST Telemedicine [facility] Hematology & Oncology [address] [address] Alisson Carreon MD [address] [place] [phone] 05/04/2024 10:15 EST Ancillary Procedure [facility] Cardiology - [address] [place] [address] 05/04/2024 11:30 EST Appointment [facility] Hematology & Oncology [address] [id number] 05/04/2024 12:00 EST Appointment [facility] Hematology & Oncology [address] 738341 06/12/2024 13:[address] [facility] Radiology CT - [address] [phone] documented as of this encounter Visit Diagnoses Not on filedocumented in this encounter Care Teams Social Media Editor Relationship Specialty Start Date End Date Linda Blancas MD [address] [place] [address] 30 [place], [place] 906912 PCP - General 01/06/11 Adolfo Carreno MD [address] [place] [phone] General Surgery 04/26/19 Augustina Colin MD PhD [address] [place] [phone] Medical Oncology 04/26/19 documented as of this encounter
--- OUTSIDE RECORDS SUMMARY | 2024-03-20 14:42 | XMS_ITS | Encounter Summary ---
Author Organization [facility] Address [address] [place] [address] Care Team Providers Care Decoration Checker Name Role Phone Linda Blancas MD Primary Care Provider [phone] Adolfo Carreno MD Unavailable [phone] Augustina Colin MD PhD Unavailable Unavailable Encounter Details Date Type Department Care Team (Late st Contact Info) Description 10/05/2023 Orders Only [facility] Cancer Center Hematology & Oncology - [facility] [address] [place] [address] Kaylah Stevens, SHELLEY Malignant neoplasm of right female breast, [...] as of this encounter Progress Notes * Kaylah Stevens, RN - 10/05/2023 1038 EDT Paracentesis order pended to provider for review and signature. documented in this encounter Plan of Treatment Upcoming Encounters Date Type Department Care Team (Late st Contact Info) Description 04/02/2024 10:30 EDT Appointment [facility] Interventional Radiology Unit [address] [place], [place] [address] 04/02/2024 15:15 EDT Office Visit [facility] Surgical Oncology - [address] 168981 Adolfo Carreno MD [address] [place], [place] [phone] 04/05/2024 9:30 EDT Telemedicine [facility] - [facility] Palliative Care Services [address] [place] [address] [phone] Chichi Woods MD [address] [place] [address], [address] [phone] 04/11/2024 15:00 EDT Telemedicine [facility] Hematology & Oncology - [address] [phone] Alisson Carreon MD [address] [place] [phone] 04/13/2024 13:30 EDT Appointment [facility] Hematology & Oncology [address] [phone] 04/13/2024 14:00 EDT Appointment [facility] Hematology & Oncology [address] [phone] 04/16/2024 10:00 EST Telemedicine [facility] - [facility] Palliative Care Services [address] [place] [address] [phone] Chichi Woods MD [address] [place] [phone] 04/24/2024 9:00 EST Appointment [facility] Radiology CT Outpatient - [address] [phone] 04/24/2024 11:00 EST Appointment [facility] Breast Imaging - [facility] [place] 1 [place], [place] 198141 04/27/2024 12:00 EST Appointment [facility] Hematology & Oncology [address] [phone] 05/02/2024 15:00 EST Telemedicine [facility] Hematology & Oncology - [address] [phone] Alisson Carreon MD [address] [place] [address], Level 2 [place] [phone] 05/04/2024 10:15 EST Ancillary Procedure [facility] Cardiology - [place] [address] 05/04/2024 11:30 EST Appointment [facility] Hematology & Oncology - [address] [phone] 05/04/2024 12:00 EST Appointment [facility] Cancer Center Hematology & Oncology - [address] [address] 06/12/2024 13:00 EST Appointment [facility] Radiology CT - [address] [address] documented as of this encounter Visit Diagnoses Diagnosis Malignant neoplasm of right female breast, unspecified estrogen receptor status, unspecified site of breast (HCC-CMS)- Primary Primary malignant neoplasm of breast with metastasis (HCC-CMS) documented in this encounter Care Teams Decoration Checker Relationship Specialty Start Date End Date Linda Blancas MD [facility] [address] [place] [address] PCP - General 01/06/11 Adolfo Carreno MD [address] [place] [address] 2 [place] [phone] General Surgery 04/26/19 Augustina Colin MD PhD [address] [place] [phone] Medical Oncology 04/26/19 documented as of this encounter
--- OUTSIDE RECORDS SUMMARY | 2024-03-20 14:42 | XMS_ITS | Encounter Summary ---
Author Organization [facility] Address [address] [place] [address] Care Team Providers Care Director Of Infection Prevention Name Role Phone Linda Blancas MD Primary Care Provider [phone] Adolfo Carreno MD Unavailable [phone] Augustina Colin MD PhD Unavailable Unavailable Reason for Visit * Reason Onset Date Comments Follow-up 09/21/2023 Encounter Details Date Type Department Care Team (Late st Contact Info) Description 09/21/2023 Orders Only [facility] Cancer Center Hematology & Oncology - Main [place] [address] [place], [place] [id number] Kaylah Stevens, SHELLEY Malignant neoplasm of right female breast, unspecified estrogen receptor status, unspecified site of breast ([facility]) (Primary Dx); Encounter for long-term current use [...] Progress Notes * Kaylah Stevens, RN - 09/21/2023 1139 EDT Lipid profile orders placed, Pt due for labs in November per Dr. Colin. documented in this encounter Plan of Treatment Upcoming Encounters Date Type Department Care Team (Late st Contact Info) Description 04/02/2024 10:30 EDT Appointment [facility] Interventional Radiology Unit [address] [place] [address] [phone] 04/02/2024 15:15 EDT Office Visit [facility] Surgical Oncology - [address] [phone] Adolfo Carreno MD [address] [place] [address], [facility] 2 [place] [phone] 04/05/2024 9:30 EDT Telemedicine [facility] - [facility] Palliative Care Services [address] [place], [place] 462151 Chichi Woods MD [address] [place] [address], [place] [address] [place] [phone] 04/11/2024 15:00 EDT Telemedicine [facility] Hematology & Oncology - [address] [phone] Alisson Carreon MD 111 [facility], Level [address] [place] [phone] 04/13/2024 13:30 EDT Appointment [facility] Hematology & Oncology [address] [phone] 04/13/2024 14:00 EDT Appointment [facility] Hematology & Oncology [address] [phone] 04/16/2024 10:00 EST Telemedicine [facility] - [facility] Palliative Care Services [address] [place] [address] [phone] Chichi Woods MD [address] [place] [address], [place] [address] [place] [phone] 04/24/2024 9:00 EST Appointment [facility] Radiology CT Outpatient - [address] [id number] 04/24/2024 11:00 EST Appointment [facility] Breast Imaging - [facility] S [address] [phone] 04/27/2024 12:00 EST Appointment [facility] Hematology & Oncology [address] 293851 05/02/2024 15:00 EST Telemedicine [facility] Hematology & Oncology - [address] 649691 Alisson Carreon MD [address] [place] [address], Level [address] [place] [phone] 05/04/2024 10:15 EST Ancillary Procedure [facility] Cardiology - [place] [address] [place], [place] [phone] 05/04/2024 11:30 EST Appointment [facility] Hematology & Oncology - [address] [address] 05/04/2024 12:00 EST Appointment [facility] Hematology & Oncology [address] [address] 06/12/2024 13:00 EST Appointment [facility] Radiology CT [address] [address] documented as of this encounter Results * (ABNORMAL) LIPID PROFILE (INCLUDES CHOLESTEROL, TRIGLYCERIDES, HDL, LDL) (10/11/2023 10:17 EDT) Cholesterol 234(H) <200 mg/dL 10/11/2023 10:55 EDT [facility] Comment:Note that therapeuti c goals will differ between patients based on cardiac risk factors and current medical therapy. HDL 69 >=50 mg/dl 10/11/2023 10:55 EDT [facility] Comment:Note that therapeuti c goals will differ between patients based on cardiac risk factors and current medical therapy. LDL, Calculated 135 <160 mg/dL 10:55 EDT [facility] Comment:Note that therapeuti c goals will differ between patients based on cardiac risk factors and current medical therapy. Triglyceride 149 <=150 mg/dL 10/11/2023 10:55 EDT [facility] Comment:Note that therapeuti c goals will differ between patients based on cardiac risk factors and current medical therapy. Chol/HDL Ratio 3.4 See Note 10/11/2023 10:55 T [facility] Comment:No reference range h as been established for CHOL/HDL ratio. Non HDL Cholesterol 165(H) <160 mg/dL 10/11/2023 10:55 T [facility] Comment:Note that therapeuti c goals will differ between patients based on cardiac risk factors and current medical therapy. Blood VENOUS BLOOD / Unknown Venipuncture / Unknown 10/11/2023 10:17 EDT 10/11/2023 10:23 EDT Augustina Colin MD PhD CHEMISTRY & BLOOD GA S ORDERABLES [facility] [address] [place] [address] documented in this encounter Visit Diagnoses Diagnosis Malignant neoplasm of right female breast, unspecified estrogen receptor status, unspecified site of breast ([facility])- Primary Encounter for long-term current use of medication documented in this encounter Care Teams Director Of Infection Prevention Relationship Specialty Start Date End Date Linda Blancas MD [facility] [address] [place] [address] PCP - General 01/06/11 Adolfo Carreno MD [address] [place] [phone] General Surgery 04/26/19 Augustina Colin MD PhD [address] [place] [phone] Medical Oncology 04/26/19 documented as of this encounter
--- OUTSIDE RECORDS SUMMARY | 2024-03-20 14:42 | XMS_ITS | Encounter Summary ---
Author Organization [facility] Address [address] [place] [address] Care Team Providers Care [employer] Dean Name Role Phone Linda Blancas MD Primary Care Provider [phone] Adolfo Carreno MD Unavailable Augustina Colin MD PhD Unavailable Unavailable Reason for Visit * Reason Onset Date Comments Appointment Related 10/04/2023 Encounter Details Date Type Department Care Team (Late st Contact Info) Description 10/04/2023 Telephone [facility] Cancer Center Hematology & Oncology - Main [place] [address] [place], [place] [address] Augustina Colin, PhD Appointment Related Social History [...] * Telephone Encounter - Sandhya Estrada - 10/04/2023 1336 EDT Per KD request, moved 11/09 appt to next week. With shuffle, moved patient's 11/09 appt to 10/10 @ 1130. Patient notified and confirmed 10/05/2023: confirmed w/KD - patient does not need to come in early for labs on 10/10. LMOM. Left PAC# documented in this encounter Plan of Treatment Upcoming Encounters Date Type Department Care Team (Late st Contact Info) Description 04/02/2024 10:30 EDT Appointment [facility] Interventional Radiology Unit [address] [place], [place] 534471 04/02/2024 15:15 EDT Office Visit [facility] Surgical Oncology - [address] 048571 Adolfo Carreno MD 111 [facility], [facility] 2 [place] [phone] 04/05/2024 9:30 EDT Telemedicine [facility] - [facility] Palliative Care Services [address] [place], [place] 9[address] Chichi Woods MD 111 [facility], [employer] [address] [place] [phone] 04/11/2024 15:00 EDT Telemedicine [facility] Hematology & Oncology - [facility] [address] [place], [place] [phone] Alisson Carreon MD [address] [place] [address], [facility] 2 [place] [phone] 04/13/2024 13:30 EDT Appointment [facility] Hematology & Oncology - [address] [phone] 04/13/2024 14:00 EDT Appointment [facility] Hematology & Oncology - [address] [phone] 04/16/2024 10:00 EST Telemedicine [facility] - [facility] Palliative Care Services [address] [place] [address] [phone] Chichi Woods MD [address] [place] [address], [address] [phone] 04/24/2024 9:00 EST Appointment [facility] Radiology CT Outpatient - [address] [id number] 04/24/2024 11:00 EST Appointment [facility] Breast Imaging - [address] 291721 04/27/2024 12:00 EST Appointment [facility] Hematology & Oncology - [address] 789021 05/02/2024 15:00 EST Telemedicine [facility] Hematology & Oncology - [address] 018251 Alisson Carreon MD [address] [place] [address], Level [address] [place] [phone] 05/04/2024 10:15 EST Ancillary Procedure [facility] Cardiology - [address] [place], [place] [phone] 05/04/2024 11:30 EST Appointment [facility] Hematology & Oncology - [address] [address] 05/04/2024 12:00 EST Appointment [facility] Hematology & Oncology - [address] [address] 06/12/2024 13:00 EST Appointment [facility] Center Radiology CT - [address] [address] documented as of this encounter Visit Diagnoses Not on filedocumented in this encounter Care Teams Graduate School Dean Relationship Specialty Start Date End Date Linda Blancas MD [facility] [address] [place] [address] PCP - General 01/06/11 Adolfo Carreno MD [address] [place] [address] 2 [place] [phone] General Surgery 04/26/19 Augustina Colin MD PhD [address] [place] [phone] Medical Oncology 04/26/19 documented as of this encounter
--- OUTSIDE RECORDS SUMMARY | 2024-03-20 14:42 | XMS_ITS | Encounter Summary ---
Author Organization [facility] Address [address] [place] [address] Care Team Providers Care Oral Pathologist Name Role Phone Linda Blancas MD Primary Care Provider [phone] Adolfo Carreno MD Unavailable [phone] Augustina Colin MD PhD Unavailable Unavailable Reason for Visit * Reason Onset Date Comments Appointment Related 10/05/2023 Encounter Details Date Type Department Care Team (Late st Contact Info) Description 10/05/2023 Telephone [facility] Cancer Center Hematology & Oncology - Main [place] [address] [place], [place] [address] Augustina Colin, PhD Appointment Related Social History [...] encounter Miscellaneous Notes * Telephone Encounter - EstradaSandhya vuong - 10/05/2023 1134 EDT Received Secure Chat that patient needed paracentesis this week. Called IR and scheduled procedure tomorrow, 10/05 @ 0830 - 0800 arrival time. Called patient with information. Patient confirmed. documented in this encounter Plan of Treatment Upcoming Encounters Date Type Department Care Team (Late st Contact Info) Description 04/02/2024 10:30 EDT Appointment [facility] Interventional Radiology Unit [address] [place] [address] [phone] 04/02/2024 15:15 EDT Office Visit [facility] Surgical Oncology - [address] [phone] Adolfo Carreno MD [address] [place] [phone] 04/05/2024 9:30 EDT Telemedicine [facility] - [facility] Palliative Care Services [address] [place] [address] 323991 Chichi Woods MD [address] [place] [address], [address] [phone] 04/11/2024 15:00 EDT Telemedicine [facility] Hematology & Oncology - [address] [phone] Alisson Carreon MD [address] [place] [address] 2 [place] [phone] 04/13/2024 13:30 EDT Appointment [facility] Hematology & Oncology [address] 244131 04/13/2024 14:00 EDT Appointment [facility] Hematology & Oncology [address] 038861 04/16/2024 10:00 EST Telemedicine [facility] - [facility] Palliative Care Services [address] [place] [address] 892121 Chichi Woods MD [address] [place] [address], [address] [phone] 04/24/2024 9:00 EST Appointment [facility] Radiology CT Outpatient - [address] [id number] 04/24/2024 11:00 EST Appointment [facility] Breast Imaging - [facility] [place] 1 [place], [place] [phone] 04/27/2024 12:00 EST Appointment [facility] Hematology & Oncology [address] 764261 05/02/2024 15:00 EST Telemedicine [facility] Hematology & Oncology - [address] 151251 Alisson Carreon MD [address] [place] [address], Level [address] [place] [phone] 05/04/2024 10:15 EST Ancillary Procedure [facility] Cardiology - [place] [address] 05/04/2024 11:30 EST Appointment [facility] Hematology & Oncology [address] 154200 [phone] 05/04/2024 12:00 EST Appointment [facility] Cancer Center Hematology & Oncology - [address] [address] 06/12/2024 13:00 EST Appointment [facility] Radiology CT - [address] [address] documented as of this encounter Visit Diagnoses Not on filedocumented in this encounter Care Teams Oral Pathologist Relationship Specialty Start Date End Date Linda Blancas MD [facility] [address] [place] [address] PCP - General 01/06/11 Adolfo Carreno MD [address] [place] [address] 2 [place] [phone] General Surgery 04/26/19 Augustina Colin MD PhD [address] [place] [address] 2 [place] [phone] Medical Oncology 04/26/19 documented as of this encounter
--- OUTSIDE RECORDS SUMMARY | 2024-03-20 14:42 | XMS_ITS | Encounter Summary ---
Author Organization [facility] Address [address] [place] [address] Care Team Providers Care Electrologist Name Role Phone Linda Blancas MD Primary Care Provider [phone] Adolfo Carreno MD Unavailable [phone] Augustina Colin MD PhD Unavailable Unavailable Encounter Details Date Type Department Care Team (Late st Contact Info) Description 10/06/2023 Documentation Visit [facility] Cancer Center Hematology & Oncology - Main [place] [address] [place] [address] Kaylah Stevens RN Social History Tobacco Use Types Packs/Day [...] of this encounter Progress Notes * Kaylah Stevens RN - 10/06/2023 0943 EDT Pt in waiting room with . Pt was scheduled for paracentesis this morning, per IR, not enoughascitic fluid in the abdomen to perform procedure at this time. Pt came to clinic reporting abdominal pain and bloating. Per Pt, she reports only have 1 BM per week for close to 2mo. When she does go, it is small pellets. The last 2 days she has had more normal BM's but still feels very bloated anduncomfortable. Pt is having a hard time keeping food down, she feels too full to eat and becomes very nauseated with eating. She has also noticed blood with BM's x3 this week, none previously noted until this week. Bleeding came in strings/fibers and was present when the pt wiped and in the toilet bowl. Pt has been trying not to strain, has no noticed no hemorrhoids. Currently pt is only takingmetamucil. Will update provider for further input on bowel regimen. Pt also reporting that she has had a persistent cough, that has lasted x3 weeks. Pt has been unableto get into PCP so has been using urgent care. Pt has been on prednisone which finishes Tuesday, but she is still having a persistent cough. Pt reports difficulty taking in a full breath, and using more shallow breathing to avoid a coughing fit. Pt has an appt with PCP in early October but would apprec karis Colin' input as well. Will update provider and call pt with proposed treatment plan, pt is aware. documented in this encounter Plan of Treatment Upcoming Encounters Date Type Department Care Team (Late st Contact Info) Description 04/02/2024 10:30 EDT Appointment [facility] Interventional Radiology Unit [address] [place] [address] 04/02/2024 15:15 EDT Office Visit [facility] Surgical Oncology - [address] 109091 Adolfo Carreno MD [address] [place] [address] [phone] 04/05/2024 9:30 EDT Telemedicine [facility] Palliative Care Services [address] [place] [address] Chichi Woods MD [address] [place] [phone] 04/11/2024 15:00 EDT Telemedicine [email or web address] Hematology & Oncology - [address] [address] Alisson Carreon MD [address] [place] [address] [phone] 04/13/2024 13:30 EDT Appointment [email or web address] Hematology & Oncology [address] 936781 04/13/2024 14:00 EDT Appointment [email or web address] Hematology & Oncology - [address] [address] 04/16/2024 10:00 EST Telemedicine [facility] Palliative Care Services [address] [place] [address] [phone] Chichi Woods MD [address] [place] [address] [phone] 04/24/2024 9:00 EST Appointment [facility] Radiology CT Outpatient - [address] [address] 04/24/2024 11:00 EST Appointment [facility] Breast Imaging - [facility] [place] 1 [place], [place] 772871 04/27/2024 12:00 EST Appointment [email or web address] Hematology & Oncology [address] [address] 05/02/2024 15:00 EST Telemedicine [email or web address] Hematology & Oncology [address] [phone] Alisson Carreon MD [address] [place] [address] 2 [place] [phone] 05/04/2024 10:15 EST Ancillary Procedure [facility] Cardiology - [address] [place], [place] [phone] 05/04/2024 11:30 EST Appointment [email or web address] Hematology & Oncology [address] 116531 05/04/2024 12:00 EST Appointment [email or web address] Hematology & Oncology [address] 699771 06/12/2024 13:00 EST Appointment [facility] Radiology CT - [address] [phone] documented as of this encounter Visit Diagnoses Not on filedocumented in this encounter Care Teams Electrologist Relationship Specialty Start Date End Date Linda Blancas MD [facility] [address] [place] [address] PCP - General 01/06/11 Adolfo Carreno MD [address] [place] [address], [facility] 2 [place] [phone] General Surgery 04/26/19 Augustina Colin MD PhD [address] [place] [address], [facility] 2 [place] [phone] Medical Oncology 04/26/19 documented as of this encounter
--- OUTSIDE RECORDS SUMMARY | 2024-03-20 14:42 | XMS_ITS | Encounter Summary ---
Author Organization [facility] Address [address] [place] [id number] Care Team Providers Care Glaucoma Specialist Name Role Phone Linda Blancas MD Primary Care Provider [phone] Adolfo Carreno MD Unavailable [phone] Augustina Colin MD PhD Unavailable Unavailable Reason for Referral * Radiology Services (Routine/Next Available) - Authorization Not Required Specialty Diagnoses / Procedures Referred By Contac t Referred To Contact Diagnoses Malignant neoplasm of right female breast, unspecified estrogen receptor status, unspecified site of breast ([facility]) Procedures CT ABDOMEN PELVIS W CONTRAST Augustina Colin MD PhD [facility] Referral ID Status Reason Start Date Expiration Date Visits Requested Visits Authorized [id number] Authorization Not Required 08/15/2023 1 1 * Radiology Services (Routine/Next Available) - Authorization Not Required Specialty Diagnoses / Procedures Referred By Contac t Referred To Contact Diagnoses Malignant neoplasm of right female breast, unspecified estrogen receptor status, unspecified site of breast ([facility]) Procedures CT CHEST W CONTRAST Augustina Colin MD PhD [facility] Referral ID Status Reason Start Date Expiration Date Visits Requested Visits Authorized [id number] Authorization Not Required 08/15/2023 1 1 Reason for Visit * Reason Comments Follow-up Encounter Details Date Type Department Care Team (Late st Contact Info) Description 08/15/2023 13:00 EST Office Visit [facility] Hematology & Oncology [address] [address] Augustina Colin MD PhD Malignant neoplasm of right female breast, [...] Sign Reading Time Taken Comments Blood Pressure 124/58 08/15/2023 1252 EST Pulse 95 08/15/2023 1252 EST Temperature 36.6 ??C (97.8 ??F) 08/15/2023 1252 EST Respiratory Rate 16 08/15/2023 1252 EST Oxygen Saturation 100% 08/15/2023 1252 EST Inhaled Oxygen Concentration - - Weight 63.8 kg (140 lb 9.6 oz) 08/15/[address] Height 155 cm (5' 1.02) 08/15/2023 1252 EST Body Mass Index 26.55 08/15/2023 1252 EST documented in this encounter Functional Status Functional [...] Notes * Augustina Colin MD PhD - 08/15/2023 1300 EST REASON FOR OFFICE VISIT: Discussion of side effects PROBLEM LIST: 1. 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 a. Ultrasound performed in [place] identifying an irregular heterogeneous soft tissue mass measuring 1.2 x 1.2 x 1.5 cm. b. Two punch biopsies near the site of the skin changes the right breast perfomed by Dr Carreno 10/21/2016; Pathology identified an invasive ductal type carcinoma involving the epidermis and dermis ofthe skin, nuclear grade 2, which was ER+80%, ID+20%. HER-2 1+ by IHC. ANNE MARIE revealed [...] breast tumor 07/07/17 and placement of tissue aerodynamics engineer. 1.9 cm tumor at time ofsurgery, [...] consistent with metastatic breast cancer; ER+ >90%, ID < 5%; HER2 2+ equivocal; [place] FISH testing negative M. Elacestrant initiated early August 2023 2. Restaging scans: - MRI Abdomen 05/20/23 -. New and enlarged hepatic metastases. Redemonstrated right iliac bone lesion. - CT Chest 05/27/23 Slightly increased size of mildly enlarged lymph nodes in the cardiophrenic angle, right internal mammary chain, and right lung apex concerning for progression of metastatic disease. Stable to minimally increased size of a 9 x 5 mm spiculated left apical nodule, compatible with indolent metastasis or primary lung carcinoma. Healed bilateral rib fractures, including healed fracture of the left posterior ninth rib where, in retrospect, there may have been a very subtle lytic metastasis. - Nuclear Bone scan 06/21/23 Interval increase [...] to discuss side effects related to Elacestrant. However it was just recently approved. Her hands are taking a long time to heal up. ROS: A 10 point review of systems was obtained. Other than described in the subjective she has no concerns or issues. Medications Prior to Today's Visit Medication Sig calcium-vitamin D (OS-CHAR D) 500 mg(1,250mg) -200 unit per tablet Take 1 Tablet by mouth 2 times daily with breakfast and dinner. capecitabine (XELODA) 500 mg tablet Take 3 Tablets by mouth every 12 hours. one week on, one week off elacestrant 345 mg tablet Take 345 mg [...] DAILY FORMULA ORAL) Take by mouth daily. mv-mn/C/glutamin/lysin/sihb774 (AIRBORNE, ASCORBATE SODIUM, ORAL) Take by mouth as needed. (Patientnot taking: Reported on 06/16/2023) ondansetron (ZOFRAN-ODT) 8 mg disintegrating tablet Take 1 Tablet by mouth every 8 hours as needed for Nausea. prasterone, dhea, (INTRAROSA) 6.[address] [...] calculated from the following: Height as of 06/16/23: 154.9 cm (61). Weight as of 06/16/23: 60.3 kg (133 lb). ECOG Performance Status: 0 General: Comfortable, cooperative and in no apparent distress NEURO: Alert and oriented x 3; Grossly neurologically intact DIAGNOSTIC DATA No visits with results within 1 Day(s) from this visit. Latest known visit with results is: Lab Requisition on 06/16/2023 Component Date Value Ref Range Status Miscellaneous Test, [place] 06/16/2023 HER2, Breast Tumor, FISH, Tissue Final [place] Test ID 06/16/2023 H2BR Final Ref Lab 06/16/2023 [facility] Final ASSESSMENT: Ms Bernstein is a 63-year-old female with metastatic breast cancer. She had been receiving capecitabine but was found to have progression. The lung biopsy was ER+ and HER2 negative based on FISH testing at [place]. She has an ESR1 mutation. She had faslodex in 2019. We will proceed with a trial of Elacestrant 345mg daily . Elacestrant is associated with GI issues, hotflashes, hyponatremia, anemia, increased LFTs, fatigue. Continue Zolendronic acid every 3 mos for now. She takes a vitamin D supplement. In the future Enhertu would be a treatment option. PLAN: 1. Elacestrant 345 mg daily if HER2 negative 2. Zoledronic acid today and q 3mos; Continued Vit D supplementation 3. Continued follow-up with Dr. Moya 4. Consider repeat CT C/A/P October 2023 5. FUR 4-6 weeks to discuss side effects documented in this encounter Plan of Treatment Upcoming Encounters Date Type Department Care Team (Late st Contact Info) Description 04/02/2024 10:30 EDT Appointment [facility] Interventional Radiology Unit [address] [place] [phone] 04/02/2024 15:15 EDT Office Visit [facility] Surgical Oncology - [facility] [address] [place], [place] [phone] Adolfo Carreno MD 111 [facility], Level 2 [place] [phone] 04/05/2024 9:30 EDT Telemedicine [facility] - [facility] Palliative Care Services [address] [place], [place] [phone] Chichi Woods MD 111 [facility], [address] [phone] 04/11/2024 15:00 EDT Telemedicine [facility] Hematology & Oncology - [address] [phone] Alisson Carreon MD [address] [place] [address] 2 [place] [phone] 04/13/2024 13:30 EDT Appointment [facility] Hematology & Oncology - [address] [phone] 04/13/2024 14:00 EDT Appointment [facility] Hematology & Oncology - [address] [phone] 04/16/2024 10:00 EST Telemedicine [facility] - [facility] Palliative Care Services [address] [place] [address] [phone] Chichi Woods MD [address] [place] [phone] 04/24/2024 9:00 EST Appointment [facility] Radiology CT Outpatient - [address] [id number] 04/24/2024 11:00 EST Appointment [facility] Breast Imaging - [address] [id number] 04/27/2024 12:00 EST Appointment [facility] Hematology & Oncology - [address] [id number] 05/02/2024 15:00 EST Telemedicine [facility] Hematology & Oncology - [address] [phone] Alisson Carreon MD [address] [place] [address], [facility] [address] [place] [phone] 05/04/2024 10:15 EST Ancillary Procedure [facility] Cardiology [place] [address] [place] [address] 05/04/2024 11:30 EST Appointment [facility] Hematology & Oncology - [address] [address] 05/04/2024 12:00 EST Appointment [facility] Hematology & Oncology [address] [address] 06/12/2024 13:00 EST Appointment [facility] Radiology CT - [address] [address] documented as of this encounter Results * CT ABDOMEN PELVIS W CONTRAST (10/03/2023 16:49 EDT) Anatomical Region Laterality Modality Body, Abdomen, Pelvis, Abdomen and Pelvis Computed Tomography 10/03/2023 17:3 7 EDT Impressions 10/03/2023 17:37 EDT 1. ??Multiple hepatic lesions with largest ??lesions appearing grossly similar to visualized on the most recent MRI abdomen. 2. ??Interval increased abdominal and pelvic ascites. 3. ??Borderline enlarged mesenteric lymph node can suggest disease spread. 4. ??Mild interval increased lytic right iliac bone lesion compared with 202 with difficult comparison with most recent studies as it wasn't included in the rdkfh-ob-tiqv. Limited evaluation of lumbar spine due to streak artifact caused by hardware. 5. ??Splenomegaly. 6. ??Cholelithiasis. [id number] Narrative 10/03/2023 17:[address] ABDOMEN PELVIS W CONTRAST ??10/03/2023 4:34 PM Signs and Symptoms/Comments: pt w/ metastatic BC;C50.911:Malignant neoplasm of right female breast, unspecified estrogen receptor status, unspecified site of breast (HCC-CMS) Technique: CT of the abdomen and pelvis was performed following the administration of intravenous contrast. This CT used either dose modulation and/or iterative reconstruction techniques to lower radiation dose. Comparison: MR abdomen from 08/31/2023. Findings: Lower chest: Please refer to dedicated CT chest. Liver: Innumerable hepatic lesions, with largest lesions appear grossly similar in size to prior MRI. Gallbladder: Cholelithiasis. Bile ducts: CBD measures 7 mm. Spleen: Enlarged, measuring 14.7 cm Pancreas: No significant finding. Adrenal glands: No significant finding. Kidneys, ureters, bladder: Symmetric enhancement. No hydronephrosis. Small bilateral renal cysts. Reproductive organs: Calcified uterine fibroid. Bowel: No significant finding. Peritoneal cavity: Interval increased abdominal ascites. Pelvic ascites. Mesenteric fat stranding and free fluid. Lymph nodes: Borderline enlarged mesenteric lymph node measuring 1.0 cm on short axis. Vascular: No significant finding. Abdominal wall: No significant finding. Musculoskeletal: Posterior fusion hardware. Right iliac bone lytic lesion appears increased in size compared with prior CT dated March,. Difficult to compare with the most recent MRI as it wasn't included in the fompx-xl-xdrn. Severe endplate degenerative change of L1-L2 [place]: No additional finding. Procedure Note Merry Dooley MD - 10/03/2023 CT ABDOMEN PELVIS W CONTRAST 10/03/2023 4:34 PM Signs and Symptoms/Comments: pt w/ metastatic BC;C50.911:Malignantneoplasm of right female breast, unspecified estrogen receptor status,unspecified site of breast (HCC-CMS) Technique: CT of the abdomen and pelvis was performed following theadministration of intravenous contrast. This CT used either dose modulation and/or iterative reconstructiontechniques to lower radiation dose. Comparison: MR abdomen from 08/31/2023. Findings: Lower chest: Please refer to dedicated CT chest. Liver: Innumerable hepatic lesions, with largest lesions appear grosslysimilar in size to prior MRI. Gallbladder: Cholelithiasis. Bile ducts: CBD measures 7 mm. Spleen: Enlarged, measuring 14.7 cm Pancreas: No significant finding. Adrenal glands: No significant finding. Kidneys, ureters, bladder: Symmetric enhancement. No hydronephrosis. Smallbilateral renal cysts. Reproductive organs: Calcified uterine fibroid. Bowel: No significant finding. Peritoneal cavity: Interval increased abdominal ascites. Pelvic ascites.Mesenteric fat stranding and free fluid. Lymph nodes: Borderline enlarged mesenteric lymph node measuring 1.0 cm onshort axis. Vascular: No significant finding. Abdominal wall: No significant finding. Musculoskeletal: Posterior fusion hardware. Right iliac bone lytic lesionappears increased in size compared with prior CT dated March,.Difficult to compare with the most recent MRI as it wasn't included in jnugebda-ok-yvpg. Severe endplate degenerative change of L1-L2 [place]: No additional finding. IMPRESSION 1. Multiple hepatic lesions with largest lesions appearing grosslysimilar to visualized on the most recent MRI abdomen. 2. Interval increased abdominal and pelvic ascites. 3. Borderline enlarged mesenteric lymph node can suggest diseasespread. 4. Mild interval increased lytic right iliac bone lesion compared [id number] with difficult comparison with most recent studies as it wasn'tincluded in the jtvlv-ij-oywk. Limited evaluation of lumbar spine due tostreak artifact caused by hardware. 5. Splenomegaly. 6. Cholelithiasis. [id number] Augustina Colin MD PhD IMG CT ORDERABLES * CT CHEST W CONTRAST (10/03/2023 16:49 EDT) Anatomical Region Laterality Modality Chest Computed Tomogra phy 10/03/2023 17:1 4 EDT Impressions 10/03/2023 17:14 EDT 1. ??Slight decrease in size of an enlarged right internal thoracic lymph node, a few nodules in the right upper lobe and stable size of a dominant nodule within the left upper lobe. 2. ??Multiple known bilateral rib fractures in different stages of healing, some of which are known to be pathologic. [id number] Narrative 10/03/2023 17:[address] CHEST W CONTRAST ??10/03/2023 4:34 PM Clinical History/Comments: pt w/ metastatic BC;C50.911:Malignant neoplasm of right female breast, unspecified estrogen receptor status, unspecified site of breast (HCC-CMS) Technique: CT scan of the chest with intravenous contrast material was performed. This CT used either dose modulation and/or iterative reconstruction techniques to lower radiation dose. Comparison: CT chest 05/27/2023. Findings: Lower neck: Normal. Mediastinum and mariann (non-vascular): No enlarged mediastinal or hilar lymph nodes. Stable nonenlarged but notable right anterior juxtaphrenic lymph node (axial #125). The esophagus appears normal. Cardiovascular: ??No abnormalities. Lungs and airways: No significant change in size of a nodule within the periphery of the left upper lobe (axial #122). There are a few additional stable nodules within the right upper lobe. There as been decrease in size of a now 1 mm nodule within the right apex posteriorly (axial #112). An nodule along the bronchovascular bundle within the right upper lobe is less conspicuous (axial #165). No new or enlarging pulmonary nodules. Pleura: Normal. Upper abdomen (limited to upper abdomen, not optimized for abdominal imaging): A separate CT of the abdomen or abdomen and pelvis was performed on the same date. ??Please see that report. Chest wall soft tissues: Slight decrease in size of right internal thoracic lymph node now measuring 6 mm in greatest diameter previously 8. Little change in left subpectoral lymph node (axial #153). Status post right mastectomy and bilateral retropectoral saline breast implants. Bones: Healing subacute fracture within the left second rib. Additional old posterior lateral right sixth rib and posterior left ninth rib. Mild sclerosis involving the anterior right third through fifth ribs anteriorly likely reflect sequela of old fractures. No new osseous lesions or pathologic fractures. Mild generative changes within the shoulders and cervical thoracic spine. Procedure Note Don Prakash MD - 10/03/2023 CT CHEST W CONTRAST 10/03/2023 4:34 PM Clinical History/Comments: pt w/ metastatic BC;C50.911:Malignant neoplasm of right female breast,unspecified estrogen receptor status, unspecified site of breast(HCC-CMS) Technique: CT scan of the chest with intravenous contrast material was performed. This CT used either dose modulation and/or iterative reconstructiontechniques to lower radiation dose. Comparison: CT chest 05/27/2023. Findings: Lower neck: Normal. Mediastinum and mariann (non-vascular): No enlarged mediastinal or hilarlymph nodes. Stable nonenlarged but notable right anterior juxtaphreniclymph node (axial #125). The esophagus appears normal. Cardiovascular: No abnormalities. Lungs and airways: No significant change in size of a nodule within theperiphery of the left upper lobe (axial #122). There are a few additionalstable nodules within the right upper lobe. There as been decrease in sizeof a now 1 mm nodule within the right apex posteriorly (axial #112). Annodule along the bronchovascular bundle within the right upper lobe isless conspicuous (axial #165). No new or enlarging pulmonary nodules. Pleura: Normal. Upper abdomen (limited to upper abdomen, not optimized for abdominalimaging): A separate CT of the abdomen or abdomen and pelvis was performedon the same date. Please see that report. Chest wall soft tissues: Slight decrease in size of right internalthoracic lymph node now measuring 6 mm in greatest diameter previously 8.Little change in left subpectoral lymph node (axial #153). Status postright mastectomy and bilateral retropectoral saline breast implants. Bones: Healing subacute fracture within the left second rib. Additionalold posterior lateral right sixth rib and posterior left ninth rib. Mildsclerosis involving the anterior right third through fifth ribs anteriorlylikely reflect sequela of old fractures. No new osseous lesions orpathologic fractures. Mild generative changes within the shoulders andcervical thoracic spine. IMPRESSION 1. Slight decrease in size of an enlarged right internal thoracic lymphnode, a few nodules in the right upper lobe and stable size of a dominantnodule within the left upper lobe. 2. Multiple known bilateral rib fractures in different stages of healing,some of which are known to be pathologic. [id number] Augustina Colin MD PhD IMG CT ORDERABLES documented in this encounter Visit Diagnoses Diagnosis Malignant neoplasm of right female breast, unspecified estrogen receptor status, unspecified site of breast (HCC-CMS)- Primary Malignant neoplasm of right female breast, unspecified estrogen receptor status, unspecified site of breast (HCC-CMS) documented in this encounter Historical Medications * This list may reflect changes made after this encounter. Medication Sig Dispensed Refills Start Date End Date OMEPRAZOLE ORAL Take 40 mg by mouth 2 times daily. 11/23/2023 added in this encounter Care Teams Glaucoma Specialist Relationship Specialty Start Date End Date Linda Blancas MD [address] [place] [address] 30 [place] [address] PCP - General 01/06/11 Adolfo Carreno MD [address] [place] [address] 2 [place] [phone] General Surgery 04/26/19 Augustina Colin MD PhD [address] [place] [address], Level [address] [place] [phone] Medical Oncology 04/26/19 documented as of this encounter
--- OUTSIDE RECORDS SUMMARY | 2024-03-20 14:42 | XMS_ITS | Encounter Summary ---
Author Organization [facility] Address [address] [place] [address] Care Team Providers Care Brick Handler Name Role Phone Linda Blancas MD Primary Care Provider [phone] Adolfo Carreno MD Unavailable [phone] Augustina Colin MD PhD Unavailable Unavailable Reason for Visit * Reason Onset Date Comments Appointment Related 08/19/2023 Encounter Details Date Type Department Care Team (Late st Contact Info) Description 08/19/2023 Telephone [facility] Hematology & Oncology - [address] [place] [address] [place], [place] [address] Augustina Colin, PhD Appointment Related Social History [...] * Telephone Encounter - Sandhya Estrada - 08/19/2023 1513 EST Called patient regarding upcoming appts. Scheduled 4wk FUR w/PG @ 1620. Asked patient if she would prefer same-day scans, infusion & PV w/KD. Patient approved moving 11/07 Zometa infusion to 11/09 to [address] work[address] CT scans scheduled on 11/09 @ 1030, labs & IV accessed scheduled @ 1130, Zometa infusion scheduled @ 1415 & PV scheduled @ 1530 with STAT read requested on scans. Patient confirmed appt schedule documented in this encounter Plan of Treatment Upcoming Encounters Date Type Department Care Team (Late st Contact Info) Description 04/02/2024 10:30 EDT Appointment [facility] Interventional Radiology Unit [address] [place], [place] [phone] 04/02/2024 15:15 EDT Office Visit [facility] Surgical Oncology - [facility] [address] [place], [place] [phone] Adolfo Carreno MD [address] [facility], Level [address] [place] [phone] 04/05/2024 9:30 EDT Telemedicine [facility] - [facility] Palliative Care Services [address] [place], [place] [phone] Chichi Woods MD 111 [facility], [address] [phone] 04/11/2024 15:00 EDT Telemedicine [facility] Hematology & Oncology - [address] [phone] Alisson Carreon MD [address] [place] [address], [facility] [address] [place] [phone] 04/13/2024 13:30 EDT Appointment [facility] Hematology & Oncology - [address] [phone] 04/13/2024 14:00 EDT Appointment [facility] Hematology & Oncology - [address] [phone] 04/16/2024 10:00 EST Telemedicine [facility] - [facility] Palliative Care Services [address] [place] [address] [phone] Chichi Woods MD [address] [place] [address], [address] [phone] 04/24/2024 9:00 EST Appointment [facility] Radiology CT Outpatient - [address] [id number] 04/24/2024 11:00 EST Appointment [facility] Breast Imaging - [facility] [address] [phone] 04/27/2024 12:00 EST Appointment [facility] Hematology & Oncology - [address] [phone] 05/02/2024 15:00 EST Telemedicine [facility] Hematology & Oncology - [address] [address]47[address] Alisson Carreon MD [address] [place] [address], [facility] [address] [place] [phone] 05/04/2024 10:15 EST Ancillary Procedure [facility] Cardiology - [address] [place] [address] 05/04/2024 11:30 EST Appointment [facility] Hematology & Oncology [address] [address] 05/04/2024 12:00 EST Appointment [facility] Hematology & Oncology [address] [phone] 06/12/2024 13:00 EST Appointment [facility] Radiology CT - [address] [phone] documented as of this encounter Visit Diagnoses Not on filedocumented in this encounter Care Teams Brick Handler Relationship Specialty Start Date End Date Linda Blancas MD [facility] [address] [place] [address] PCP - General 01/06/11 Adolfo Carreno MD [address] [place] [phone] General Surgery 04/26/19 Augustina Colin MD PhD [address] [place] [phone] Medical Oncology 04/26/19 documented as of this encounter
--- OUTSIDE RECORDS SUMMARY | 2024-03-20 14:42 | XMS_ITS | Encounter Summary ---
Author Organization [facility] Address [address] [place] [address] Care Team Providers Care Gun Number Name Role Phone Linda Blancas MD Primary Care Provider [phone] Adolfo Carreno MD Unavailable [phone] Augustina Colin MD PhD Unavailable Unavailable Reason for Visit * Reason Onset Date Comments Results 09/27/2023 LAB RESULTS FROM [facility] Encounter Details Date Type Department Care Team (Late st Contact Info) Description 09/27/2023 Telephone [facility] Hematology & Oncology - Main [place] [address], [place] [id number] Augustina Colin, PhD Results (LAB RESULTS FROM [facility]) Social History Tobacco Use Types Packs/Day Years [...] encounter Miscellaneous Notes * Telephone Encounter - Pardeep Palma MA - 09/27/2023 1524 EDT LAB RESULTS FROM [facility] PARDEEP PALMA MA 09/27/2023 15:24 documented in this encounter Plan of Treatment Upcoming Encounters Date Type Department Care Team (Late st Contact Info) Description 04/02/2024 10:30 EDT Appointment [facility] Interventional Radiology Unit [address] [place] [address] 04/02/2024 15:15 EDT Office Visit [facility] Surgical Oncology - [address] [phone] Adolfo Carreno MD [address] [place], [place] [phone] 04/05/2024 9:30 EDT Telemedicine [facility] - [facility] Palliative Care Services [address] [place] [address] [phone] Chichi Woods MD [address] [place] [address] [phone] 04/11/2024 15:00 EDT Telemedicine [facility] Hematology & Oncology [address] [phone] Alisson Carreon MD [address] [place] [address] [phone] 04/13/2024 13:30 EDT Appointment [facility] Hematology & Oncology [address] [phone] 04/13/2024 14:00 EDT Appointment [facility] Hematology & Oncology [address] [phone] 04/16/2024 10:00 EST Telemedicine [facility] - [facility] Palliative Care Services [address] [place] [address] [phone] Chichi Woods MD [address] [place] [address] [phone] 04/24/2024 9:00 EST Appointment [facility] Radiology CT Outpatient - [address] [phone] 04/24/2024 11:00 EST Appointment [facility] Breast Imaging - [facility] [address] [place], [place] [address] 04/27/2024 12:00 EST Appointment [facility] Hematology & Oncology [address] [phone] 05/02/2024 15:00 EST Telemedicine [facility] Hematology & Oncology - [address] [phone] Alisson Carreon MD [address] [place] [address], Level 2 [place] [phone] 05/04/2024 10:15 EST Ancillary Procedure [facility] Cardiology - [place] [address] 05/04/2024 11:30 EST Appointment [facility] Hematology & Oncology - [address] [phone] 05/04/2024 12:00 EST Appointment [facility] Hematology & Oncology - [facility] [address] [place] [address] 06/12/2024 13:00 EST Appointment [facility] Radiology CT - [facility] [address] [place] [address] documented as of this encounter Procedures Procedure Name Priority Date/Time Associated Diagnosis Comments COMPREHENSIVE METABOLIC PANEL (ONCOLOGY USE ONLY-INC MG) Routine 09/26/2023 COMPLETE BLOOD COUNT AND DIFFERENTIAL Routine 09/26/2023 documented in this encounter Results * (ABNORMAL) COMPLETE BLOOD COUNT AND DIFFERENTIAL (09/26/2023) WBC, External 19.6(A) 4.5 - 11 [facility] RBC, External 3.44(A) 4 - 5.2 [facility] Hemoglobin, External 11.1(A) 12 - 15 % [facility] HCT, External 36.7 [facility] MCV, External 107(A) 80 - 100 [facility] MCH, External 32.3 g/dL [facility] MCHC, External 30.2(A) 31 - 37 g/dL [facility] PLT, External 209 [facility] RDW-CV, External 15.2(A) 11.5 - 14.5 [facility] Neutrophils, External 92(A) 31 - 76 [facility] Lymphocytes, External 5(A) 24 - 44 [facility] Monocytes, External 2 [facility] Eosinophils, External 0 [facility] Basophils, External 1 [facility] ABS Neutrophils, External 18(A) 1.5 - 7.8 [facility] ABS Lymphs, External 1(A) 1.1 - 4.8 [facility] ABS Monocytes, External 0.4 [facility] ABS Eosinophils, External 0 [facility] ABS Basophils, External 0.2(A) 0 - 0.1 [facility] Blood VENOUS BLOOD / Unknown 09/26/2023 Historical Provider PACKAGES & DNA KS OBE ORDERABLES [facility] * (ABNORMAL) COMPREHENSIVE METABOLIC PANEL (ONCOLOGY USE ONLY-INC MG) (09/26/2023) Calcium, External 9 mg/dL [facility] CO2, External 24 mmol/L [facility] AST, External 71(A) 15 - 37 U/L [facility] ALT, External 44 [facility] Bilirubin, Total, External 0.84 [facility] Creatinine, External 0.7 mg/dL [facility] Calculated Calcium, External [facility] Anion Gap, External [facility] Total Protein, External 6.8 [facility] Potassium, External 3.3(A) 3.5 - 5.1 mmol/L [facility] Total Alkaline Phosphatase, External 331(A) 48 - 129 [facility] Albumin, External 2.9(A) 3.4 - 5 g/dL [facility] BUN, External 17 mg/dL [facility] GFR, Calculated, External >60 [facility] Fasting?, External [facility] Chloride, External 112(A) 98 - 107 mmol/L [facility] Glucose, Serum, External 122(A) 74 - 106 mg/dL [facility] Sodium, External 145 mmol/L [facility] Magnesium, External [facility] Blood VENOUS BLOOD / Unknown 09/26/2023 Historical Provider CHEMISTRY & BLOOD GAS ORDERABLES [facility] documented in this encounter Visit Diagnoses Not on filedocumented in this encounter Care Teams Gun Number Relationship Specialty Start Date End Date Linda Blancas MD [address] [place] [address] [address] [place] [address] PCP - General 01/06/11 Adolfo Carreno MD [address] [facility] 2 [place] [phone] General Surgery 04/26/19 Augustina Colin MD PhD [address] [facility] 2 [place] [phone] Medical Oncology 04/26/19 documented as of this encounter
--- OUTSIDE RECORDS SUMMARY | 2024-03-20 14:42 | XMS_ITS | Encounter Summary ---
Author Organization [facility] Address [address] [place] [address] Care Team Providers Care Research Tech Name Role Phone Linda Blancas MD Primary Care Provider [phone] Adolfo Carreno MD Unavailable [phone] Augustina Colin MD PhD Unavailable Unavailable Reason for Visit * Prior Authorization (Urgent) - Authorization Not Required Specialty Diagnoses / Procedures Referred By Contac t Referred To Contact Infusion Therapy Diagnoses Malignant neoplasm of female breast, unspecified estrogen receptor status, unspecified laterality, unspecified site of breast ([facility]) Augustina Colin MD PhD [facility] [address] [place] [address] Referral ID Status Reason Start Date Expiration Date Visits Requested Visits Authorized [id number] Authorization Not Required Specialty Services Required 3 3 6 Encounter Details Date Type Department Care Team (Latest Contact Info) Description 08/15/2023 10:22 EST - 08/15/2023 23:59 EST Hospital Encounter [facility] [address], [place] [phone] Osteopenia of necks of both femurs (Primary Dx) Discharge Disposition: Home or Self [...] Sign Reading Time Taken Comments Blood Pressure 131/58 08/15/2023 1412 EST Pulse - - Temperature 36.8 ??C (98.2 ??F) 08/15/2023 1412 EST Respiratory Rate 16 08/15/2023 1412 EST Oxygen Saturation 100% 08/15/2023 1412 EST Inhaled Oxygen Concentration - - Weight - [...] by mouth daily. 90 Tab 3 08/16/2012 capecitabine (XELODA) 500 mg tabletIndications:Malign ant neoplasm of right female breast, unspecified estrogen receptor status, unspecified site of breast (HCC-CMS) Take 3 Tablets by mouth every 12 hours. one week on, one week off 84 Tablet 3 03/28/2023 09/22/2023 elacestrant 345 mg tabletIndications:Primar y malignant neoplasm of breast [...] 2 Tablets by mouth as needed. 12/07/2023 mv-mn/C/glutamin/lysin/h [id number] (AIRBORNE, ASCORBATE SODIUM, ORAL) Take by mouth as needed. 12/14/2023 OMEPRAZOLE ORAL Take 40 mg by mouth 2 times daily. 11/23/2023 ondansetron (ZOFRAN-ODT) 8 mg disintegrating tablet Take 1 Tablet by mouth every 8 hours as needed for Nausea. 30 Tablet 05/14/2022 09/22/2023 prasterone, dhea, (INTRAROSA) 6.[address] 6.5 mg vaginally daily. 28 Each 4 07/30/2022 12/14/2023 venlafaxine (EFFEXOR-XR) 150 mg XR capsule Take 1 Cap by mouth daily. 90 Cap 3 08/16/2012 12/14/2023 documented as of this encounter Discharge Disposition Disposition Code Departure Means Destination Home or Self Care documented in this encounter Progress Notes * Ulysses Hart, [place] - 08/15/2023 4697 EST Sunshine Pleitez arrived to [address] for Zometa related to diagnosis code of C50.919. Identification verified verbally and on patient wristband. Patient Education Topic: hydration Method: Verbal Taught to: Patient Barriers: None Outcomes: verbalized understanding Signature:ULYSSES HART RN Patient educated to call if complications or any concerns any time. Reminded of over the counter medications (ie benadryl and tylenol) to use at home for side effects of sensitivity/ allergic reaction and to call clinic and/or 911 for difficulty breathing and/or chest pain. Patient discharged home. documented in this encounter Plan of Treatment Upcoming Encounters Date Type Department Care Team (Late st Contact Info) Description 04/02/2024 10:30 EDT Appointment [facility] [address] [place] [address] [phone] 04/02/2024 15:15 EDT Office Visit [facility] Surgical Oncology - [address] [phone] Adolfo Carreno MD [address] [place] [address] [phone] 04/05/2024 9:30 EDT Telemedicine [facility] Palliative Care Services [address] [place] [address] [phone] Chichi Woods MD [address] [place] [address] [phone] 04/11/2024 15:00 EDT Telemedicine [facility] Hematology & Oncology [address] [phone] Alisson Carreon MD [address] [place] [address] [phone] 04/13/2024 13:30 EDT Appointment [facility] Hematology & Oncology [address] [phone] 04/13/2024 14:00 EDT Appointment [facility] Hematology & Oncology [address] [phone] 04/16/2024 10:00 EST Telemedicine [facility] Palliative Care Services [address] [place] [address] [phone] Chichi Woods MD [address] [place] [address] [place] [phone] 04/24/2024 9:00 EST Appointment [facility] Radiology CT Outpatient - [address] [phone] 04/24/2024 11:00 EST Appointment [facility] Breast Imaging - [facility] 1 [place], [place] [phone] 04/27/2024 12:00 EST Appointment [facility] Hematology & Oncology [address] [phone] 05/02/2024 15:00 EST Telemedicine [facility] Hematology & Oncology [address] [phone] Alisson Carreon MD [address] [place] [address], Level [address] [place] [phone] 05/04/2024 10:15 EST Ancillary Procedure [facility] [place] [place] [address] 05/04/2024 11:30 EST Appointment [facility] Hematology & Oncology [address] [phone] 05/04/2024 12:00 EST Appointment [facility] Hematology & Oncology [address] [phone] 06/12/2024 13:00 EST Appointment [facility] Radiology CT - [address] [phone] documented as of this encounter Visit Diagnoses Diagnosis Osteopenia of necks of both femurs- Primary documented in this encounter Administered Medications Inactive Administered Medications - up to 3 most recent administrations Medication Order MAR Action Action Date Dose Rate Site sodium chloride 0.9 % (NS) infusion at 100 mL/hr, 250 mL, intravenous, CONTINUOUS, Starting on Tue08/15/23 at 1430, Until Tue08/16/23 at 1427, Routine New Bag 08/15/2023 14:28 EST 250 mL 100 mL/hr zoledronic acid (ZOMETA) 4 mg/100 mL IVPB 4 mg 4 mg, intravenous, Administer over 20 Minutes, NOW X1, 1 dose, On 08/15/23 at 1430, Routine New Bag 08/15/2023 14:26 EST 4 mg documented in this encounter Orders Appointment Requests Count Last Ordered Date Fi rst Ordered Date ONCBCN INFUSION APPOINTMENT REQUEST 1 08/14 documented in this encounter Care Teams Research Tech Relationship Specialty Start Date End Date Linda Blancas MD [address] [place] [address] PCP - General 01/06/11 Adolfo Carreno MD [address] [place] [address] 2 [place] [phone] General Surgery 04/26/19 Augustina Colin MD PhD [address] [place] [address] 2 [place] [phone] Medical Oncology 04/26/19 documented as of this encounter
--- OUTSIDE RECORDS SUMMARY | 2024-03-20 14:42 | XMS_ITS | Encounter Summary ---
Author Organization [facility] Address [address] [place] [address] Care Team Providers Care Switchboard Mechanic Name Role Phone Linda Blancas MD Primary Care Provider [phone] Adolfo Carreno MD Unavailable [phone] Augustina Colin MD PhD Unavailable Unavailable Reason for Referral * Radiology Services (Routine/Next Available) - Authorization Not Required Specialty Diagnoses / Procedures Referred By Contac t Referred To Contact Radiology Diagnoses Metastases to the liver (HCC-CMS) Procedures MR ABDOMEN W JIMMIE CONTRAST David Moya MD [address] [address] [facility] Referral ID Status Reason Start Date Expiration Date Visits Requested Visits Authorized [id number] Authorization Not Required 3 1 1 Reason for Visit * Radiology Services (Routine/Next Available) - Authorization Not Required Specialty Diagnoses / Procedures Referred By Contac t Referred To Contact Radiology Diagnoses Metastases to the liver (HCC-CMS) Procedures MR ABDOMEN W JIMMIE CONTRAST David Moya MD [address] [address] [facility] Referral ID Status Reason Start Date Expiration Date Visits Requested Visits Authorized [id number] Authorization Not Required 3 1 1 Encounter Details Date Type Department Care Team (Latest Contact Info) Description 08/31/2023 10:29 EDT - 08/31/2023 23:59 EDT Hospital Encounter [facility] [address] [place] [address] Metastases to the liver (HCC-CMS) Discharge Disposition: Home or Self Care [...] Tablets by mouth as needed. 12/07/2023 mv-mn/C/glutamin/lysin/h [id number] (AIRBORNE, ASCORBATE SODIUM, ORAL) Take by mouth [...] Contact Info) Description 04/02/2024 10:30 EDT Appointment [facility] Interventional Radiology Unit [address] [place] [address] [phone] 04/02/2024 15:15 EDT Office Visit [facility] [address] [place], [place] [phone] Adolfo Carreno MD 111 [facility] 2 [place] [phone] 04/05/2024 9:30 EDT Telemedicine [facility] Palliative Care Services [address] [place] [phone] Cihchi Woods MD [address] [place] [phone] 04/11/2024 15:00 EDT Telemedicine [facility] Hematology & Oncology - [address] [address] Alisson Carreon MD [address] [place] [address] Level 2 [place] [phone] 04/13/2024 13:30 EDT Appointment [facility] Hematology & Oncology - [address] [address] 04/13/2024 14:00 EDT Appointment [facility] Hematology & Oncology [address] [address] 04/16/2024 10:00 EST Telemedicine [facility] Palliative Care Services [address] [place] [address] [phone] Chichi Woods MD [address] [place] [phone] 04/24/2024 9:00 EST Appointment [facility] Radiology CT Outpatient - [address] [id number] 04/24/2024 11:00 EST Appointment [facility] Breast Imaging - [address] [phone] 04/27/2024 12:00 EST Appointment [facility] Hematology & Oncology - [address] [address] 05/02/2024 15:00 EST Telemedicine [facility] Hematology & Oncology [address] 191261 Alisson Carreon MD [address] [place] [address], Level 2 [place] [phone] 05/04/2024 10:15 EST Ancillary Procedure [facility] Cardiology - [address] [place] [address] 05/04/2024 11:30 EST Appointment [facility] Hematology & Oncology [address] [phone] 05/04/2024 12:00 EST Appointment [facility] Hematology & Oncology [address] [phone] 06/12/2024 13:00 EST Appointment [facility] Radiology CT - [address] [phone] documented as of this encounter Procedures Procedure Name Priority Date/Time Associated Diagnosis Comments MR ABDOMEN W WO CONTRAST Routine 08/31/2023 11:19 EDT Metastases to the liver (HCC-CMS) documented in this encounter Results * MR ABDOMEN W WO CONTRAST (08/31/2023 11:19 EDT) Anatomical Region Laterality Modality Body, Abdomen Magnetic Resonan ce 08/31/2023 13:5 0 EDT Impressions 08/31/2023 13:50 EDT 1. Interval worsening of hepatic metastatic disease with enlarging and numerous new metastases. 2. Increasing small volume peritoneal free fluid and stable splenomegaly, concerning for portal hypertension. 3. Known right iliac metastasis only seen on the localizer sequences and not well assessed. [id number] Narrative 08/31/2023 13:50 EDT MR ABDOMEN W WO CONTRAST ??08/31/2023 10:46 AM Signs and Symptoms/Comments: Liver metastases; Liver metastases;C78.7:Metastases to the liver (HCC-CMS) Technique: MR sequences of the abdomen were performed with and without IV contrast. . Comparison: Abdominal MRI 05/20/2023 Findings: Lower chest: No pleural fluid or dense consolidations. Liver: Enlarging and new hepatic metastases, index lesions as below: * ??Lesion in the dome of the liver on series 901 image 77, now 1.7 cm, previously 0.9 cm. * ??Central right liver lesion on series 901 image 152, now 2.8 cm, previously 2.3 cm. * ??Lesions in the posterior hepatic dome on series 901 image 97 measuring 1.7, 1.0, and 0.9 cm respectively, all new * ??Lesion in segment 4A on series 901, image 122, now 1.8 cm, previously 1.6 cm. New metastasis immediately lateral on the same image. * ??Dominant lesion in the lateral right liver on series 701, image 21, now 4.2 cm, previously 2.8 cm. * ??Innumerable additional lesions and foci of diffusion restriction, clearly new and enlarged. Periportal edema. Gallbladder: Decompressed gallbladder with cholelithiasis. Bile ducts: No intra or extrahepatic biliary ductal dilatation.. Spleen: Stable splenomegaly, spleen measures 13 cm craniocaudal. Pancreas: No focal pancreatic abnormality or ductal dilatation. Adrenal glands: No adrenal mass. Kidneys, ureters: Tiny bilateral renal cysts. No concerning renal abnormality. No hydroureteronephrosis. Bowel: No bowel obstruction. Peritoneal cavity: Interval increase in small volume perihepatic fluid, with mesenteric edema and fluid interdigitating between loops of bowel throughout the abdomen. Lymph nodes: No pathologically enlarged lymph nodes. Vascular: Nonaneurysmal abdominal aorta. Visceral arteries are patent where included. No portal venous thrombus. Abdominal wall: Bilateral breast implants. Musculoskeletal: Known right iliac bone metastasis is only included on the large gvvwq-cs-ayvz localizer sequences and is not well evaluated but appears grossly unchanged. Unchanged vague area of T2 hyperintensity involving the left transverse process of T12. Fracture deformity of the left posterior ninth rib. These correspond to healing fracture on prior imaging. Localizer: No additional finding. Procedure Note Chilango Fam MD - 08/31/2023 MR ABDOMEN W WO CONTRAST 08/31/2023 10:46 AM Signs and Symptoms/Comments: Liver metastases; Livermetastases;C78.7:Metastases to the liver (HCC-CMS) Technique: MR sequences of the abdomen were performed with and without IVcontrast. . Comparison: Abdominal MRI 05/20/2023 Findings: Lower chest: No pleural fluid or dense consolidations. Liver: Enlarging and new hepatic metastases, index lesions as below: * Lesion in the dome of the liver on series 901 image 77, now 1.7 cm,previously 0.9 cm. * Central right liver lesion on series 901 image 152, now 2.8 cm,previously 2.3 cm. * Lesions in the posterior hepatic dome on series 901 image 97 measuring1.7, 1.0, and 0.9 cm respectively, all new * Lesion in segment 4A on series 901, image 122, now 1.8 cm, previously1.6 cm. New metastasis immediately lateral on the same image. * Dominant lesion in the lateral right liver on series 701, image 21, now4.2 cm, previously 2.8 cm. * Innumerable additional lesions and foci of diffusion restriction,clearly new and enlarged. Periportal edema. Gallbladder: Decompressed gallbladder with cholelithiasis. Bile ducts: No intra or extrahepatic biliary ductal dilatation.. Spleen: Stable splenomegaly, spleen measures 13 cm craniocaudal. Pancreas: No focal pancreatic abnormality or ductal dilatation. Adrenal glands: No adrenal mass. Kidneys, ureters: Tiny bilateral renal cysts. No concerning renalabnormality. No hydroureteronephrosis. Bowel: No bowel obstruction. Peritoneal cavity: Interval increase in small volume perihepatic fluid,with mesenteric edema and fluid interdigitating between loops of bowelthroughout the abdomen. Lymph nodes: No pathologically enlarged lymph nodes. Vascular: Nonaneurysmal abdominal aorta. Visceral arteries are patentwhere included. No portal venous thrombus. Abdominal wall: Bilateral breast implants. Musculoskeletal: Known right iliac bone metastasis is only included on thelarge jxfql-os-arry localizer sequences and is not well evaluated butappears grossly unchanged. Unchanged vague area of T2 hyperintensityinvolving the left transverse process of T12. Fracture deformity of theleft posterior ninth rib. These correspond to healing fracture on priorimaging. Localizer: No additional finding. IMPRESSION 1. Interval worsening of hepatic metastatic disease with enlarging andnumerous new metastases. 2. Increasing small volume peritoneal free fluid and stable splenomegaly,concerning for portal hypertension. 3. Known right iliac metastasis only seen on the localizer sequences andnot well assessed. [id number] David Moya MD IMG MRI [facility] documented in this encounter Visit Diagnoses Diagnosis Metastases to the liver (HCC-CMS) Secondary malignant neoplasm of liver documented in this encounter Administered Medications Inactive Administered Medications - up to 3 most recent administrations Medication Order MAR Action Action Date Dose Rate Site gadoterate meglumine solution 1-30 mL 1-30 mL, intravenous, Once in imaging, 1 dose, Starting on Tue08/31/23 at 1047, Until Tue08/31/23 at 1110, Routine, Imaging Protocol Orders Given 08/31/2023 11:10 EDT 12 mL documented in this encounter Orders Medications Ordered That Vj ht Not Have Been Administered Count Last Ordered Date First Ordered Date gadoterate meglumine solution 1-30 mL 1 documented in this encounter Care Teams Switchboard Mechanic Relationship Specialty Start Date End Date Linda Blancas MD [facility] [address] [place] [address] PCP - General 01/06/11 Adolfo Carreno MD [address] [place] [phone] General Surgery 04/26/19 Augustina Colin MD PhD [address] [place] [phone] Medical Oncology 04/26/19 documented as of this encounter
--- OUTSIDE RECORDS SUMMARY | 2024-03-20 14:42 | XMS_ITS | Encounter Summary ---
Author Organization [facility] Address [address] [place] [address] Care Team Providers Care Microarray Specialist Name Role Phone Linda Blancas MD Primary Care Provider [phone] Adolfo Carreno MD Unavailable [phone] Augustina Colin MD PhD Unavailable Unavailable Reason for Referral * Radiology Services (Routine/Next Available) - Authorization Not Required Specialty Diagnoses / Procedures Referred By Contac t Referred To Contact Diagnoses Malignant neoplasm of right female breast, unspecified estrogen receptor status, unspecified site of breast ([facility]) Procedures CT ABDOMEN PELVIS W CONTRAST Augustina Colin MD PhD [facility] Referral ID Status Reason Start Date Expiration Date Visits Requested Visits Authorized [id number] Authorization Not Required 08/15/2023 1 1 * Radiology Services (Routine/Next Available) - Authorization Not Required Specialty Diagnoses / Procedures Referred By Contac t Referred To Contact Diagnoses Malignant neoplasm of right female breast, unspecified estrogen receptor status, unspecified site of breast ([facility]) Procedures CT CHEST W CONTRAST Augustina Colin MD PhD [facility] Referral ID Status Reason Start Date Expiration Date Visits Requested Visits Authorized [id number] Authorization Not Required 08/15/2023 1 1 Reason for Visit * Radiology Services (Routine/Next Available) - Authorization Not Required Specialty Diagnoses / Procedures Referred By Contac t Referred To Contact Diagnoses Malignant neoplasm of right female breast, unspecified estrogen receptor status, unspecified site of breast ([facility]) Procedures CT ABDOMEN PELVIS W CONTRAST Augustina Colin MD PhD [facility] Referral ID Status Reason Start Date Expiration Date Visits Requested Visits Authorized [id number] Authorization Not Required 08/15/2023 1 1 Encounter Details Date Type Department Care Team (Latest Contact Info) Description 10/03/2023 16:13 EDT - 10/03/2023 23:59 EDT Hospital Encounter [facility] [place] [address] Malignant neoplasm of right female breast, unspecified estrogen receptor status, unspecified site of breast ([facility]) Discharge Disposition: Home or Self Care Social [...] Tablets by mouth as needed. 12/07/2023 mv-mn/C/glutamin/lysin /[id number] (AIRBORNE, ASCORBATE SODIUM, ORAL) Take by mouth [facility] [address] [place] [phone] 04/02/2024 15:15 EDT Office Visit [facility] Surgical Oncology - [address] [address] Adolfo Carreno MD 111 [facility], Level 2 [place] [phone] 04/05/2024 9:30 EDT Telemedicine [facility] Palliative Care Services [address] [place] [address] [phone] Chichi Woods MD [address] [place] [phone] 04/11/2024 15:00 EDT Telemedicine [facility] Hematology & Oncology [address] [phone] Alisson Carreon MD [address] [place] [address], Level 2 [place] [phone] 04/13/2024 13:30 EDT Appointment [facility] Hematology & Oncology [address] [phone] 04/13/2024 14:00 EDT Appointment [facility] Hematology & Oncology [address] [id number] 04/16/2024 10:00 EST Telemedicine [facility] - [facility] Palliative Care Services [address] [place] [address] [phone] Chichi Woods MD [address] [place] [phone] 04/24/2024 9:00 EST Appointment [facility] Radiology CT Outpatient - [address] [id number] 04/24/2024 11:00 EST Appointment [facility] Breast Imaging - [address] [phone] 04/27/2024 12:00 EST Appointment [facility] Hematology & Oncology - [address] [phone] 05/02/2024 15:00 EST Telemedicine [facility] Hematology & Oncology - [address] [address] Alisson Carreon MD 111 [facility], Level 2 [place] [phone] 05/04/2024 10:15 EST Ancillary Procedure [facility] Cardiology - [address] [place] [address] 05/04/2024 11:30 EST Appointment [facility] Hematology & Oncology - [address] [id number] 05/04/2024 12:00 EST Appointment [facility] Hematology & Oncology [address] [id number] 06/12/2024 13:00 EST Appointment [facility] Radiology CT - [facility] [address] [place], [place] [phone] documented as of this encounter Procedures Procedure Name Priority Date/Time Associated Diagnosis Comments CT CHEST W CONTRAST Routine 10/03/2023 1 6:49 EDT Malignant neoplasm of right female breast, unspecified estrogen receptor status, unspecified site of breast (HCC-CMS) CT ABDOMEN PELVIS W CONTRAST Routine 10/03/2023 16:49 EDT Malignant neoplasm of right female breast, [...] studies as it wasn't included in the ppxjg-yo-bbst. Limited evaluation of lumbar spine due to streak artifact caused by hardware. 5. ??Splenomegaly. 6. ??Cholelithiasis. [id number] Narrative 10/03/2023 17:[address] ABDOMEN PELVIS [...] MRI as it wasn't included in the rxexz-qd-vyai. Severe endplate degenerative change of L1-L2 Klystrom Tube Tester: No additional finding. Procedure Note Merry Dooley [...] recent MRI as it wasn't included in oelyvgan-sf-lnkx. Severe endplate degenerative change of L1-L2 Klystrom Tube Tester: No additional finding. IMPRESSION 1. Multiple hepatic lesions with largest lesions appearing grosslysimilar to visualized on the most recent MRI abdomen. 2. Interval increased abdominal and pelvic ascites. 3. Borderline enlarged mesenteric lymph node can suggest diseasespread. 4. Mild interval increased lytic right iliac bone lesion compared [id number] with difficult comparison with most recent studies as it wasn'tincluded in the xnphw-pn-berr. Limited evaluation of lumbar spine due tostreak artifact caused by hardware. 5. Splenomegaly. 6. Cholelithiasis. [id number] Augustina Colin MD PhD IMG CT ORDERABLES [...] of which are known to be pathologic. [id number] Narrative 10/03/2023 17:[address] CHEST W CONTRAST ??10/03/2023 4:34 PM Clinical History/Comments: pt w/ metastatic BC;C50.911:Malignant neoplasm of right female breast, unspecified estrogen receptor status, unspecified site of breast ([facility]) Technique: CT scan of the chest with [...] of which are known to be pathologic. [id number] Augustina Colin MD PhD IMG CT ORDERABLES documented in this encounter Visit Diagnoses Diagnosis Malignant neoplasm of right female breast, unspecified estrogen receptor status, unspecified site of breast (HCC-CMS) documented in this encounter Administered Medications Inactive Administered Medications - up to 3 most recent administrations Medication Order MAR Action Action Date Dose Rate Site iohexoL (OMNIPAQUE 350) solution 100 mL 100 mL, intravenous, Once in imaging, 1 dose, Starting on Tue10/03/23 at 1634, Until Tue10/03/23 at 1649, Routine, Imaging Protocol Orders Given 10/03/2023 16:49 EDT 94 mL documented in this encounter Orders Medications Ordered That Vj ht Not Have Been Administered Count Last Ordered Date First Ordered Date iohexoL (OMNIPAQUE 350) solution 100 mL 1 0 10/03/2023 documented in this encounter Care Teams Microarray Specialist Relationship Specialty Start Date End Date Linda Blancas MD [address] [place] [address] PCP - General 01/06/11 Adolfo Carreno MD [address] [phone] General Surgery 04/26/19 Augustina Colin MD PhD [address] [phone] Medical Oncology 04/26/19 documented as of this encounter
--- OUTSIDE RECORDS SUMMARY | 2024-03-20 14:42 | XMS_ITS | Encounter Summary ---
Author Organization [facility] Address [address] [place] [address] Care Team Providers Care Screening Specialist Name Role Phone Linda Blancas MD Primary Care Provider [phone] Adolfo Carreno MD Unavailable [phone] Augustina Colin MD PhD Unavailable Unavailable Encounter Details Date Type Department Care Team (Late st Contact Info) Description 08/15/2023 Orders Only [facility] Radiology - Main [place] [address] [place] [address] Santi Saldivar MD [address] [place], [place] [address] Social History Tobacco Use Types Packs/Day Years [...] [facility] Interventional Radiology Unit [address] [place], [place] 577881 04/02/2024 15:15 EDT Office Visit [facility] Surgical Oncology - [address] [phone] Adolfo Carreno MD [address] [place] [address] 2 [place] [phone] 04/05/2024 9:30 EDT Telemedicine [facility] - [facility] Palliative Care Services [address] [place], [place] [phone] Chichi Woods MD [address] [place] [address], [address] [phone] 04/11/2024 15:00 EDT Telemedicine [facility] Hematology & Oncology - [address] [phone] Alisson Carreon MD [address] [place] [address] 2 [place] [phone] 04/13/2024 13:30 EDT Appointment [facility] Hematology & Oncology [address] [phone] 04/13/2024 14:00 EDT Appointment [facility] Hematology & Oncology - [address] [id number] 04/16/2024 10:00 EST Telemedicine [facility] - [facility] Palliative Care Services [address] [place], [place] 389271 Chichi Woods MD 111 [facility], [address] [phone] 04/24/2024 9:00 EST Appointment [facility] Radiology CT Outpatient - [address] [id number] 04/24/2024 11:00 EST Appointment [facility] Breast Imaging - [address] [id number] 04/27/2024 12:00 EST Appointment [facility] Hematology & Oncology - [address] [phone] 05/02/2024 15:00 EST Telemedicine [facility] Hematology & Oncology - [address] [phone] Alisson Carreon MD [address] [place] [address], Level 2 [place] [phone] 05/04/2024 10:15 EST Ancillary Procedure [facility] Cardiology - [place] [address] 05/04/2024 11:30 EST Appointment [facility] Hematology & Oncology - [address] [phone] 05/04/2024 12:00 EST Appointment [facility] Hematology & Oncology - [address] [phone] 06/12/2024 13:00 EST Appointment [facility] Radiology CT - [address] [phone] documented as of this encounter Visit Diagnoses Not on filedocumented in this encounter Care Teams Screening Specialist Relationship Specialty Start Date End Date Linda Blancas MD [address] [place] [address] 30 [place] [address] PCP - General 01/06/11 Adolfo Carreno MD [address] [place] [phone] General Surgery 04/26/19 Augustina Colin MD PhD [address] [place] [phone] Medical Oncology 04/26/19 documented as of this encounter
--- OUTSIDE RECORDS SUMMARY | 2024-03-20 14:42 | XMS_ITS | Encounter Summary ---
Author Organization [facility] Address [address] [place] [address] Care Team Providers Care Human Resources Operations Manager Name Role Phone Linda Blancas MD Primary Care Provider Adolfo Carreno MD Unavailable [phone] Augustina Colin MD PhD Unavailable Unavailable Reason for Visit * Reason Onset Date Comments Appointment Related 08/15/2023 Encounter Details Date Type Department Care Team (Late st Contact Info) Description 08/15/2023 Telephone [facility] Amb[facility] Infusion [facility] [address], [place] [id number] Augustina Colin, PhD Appointment Related Social History [...] encounter Miscellaneous Notes * Telephone Encounter - Abraham Mendez - 08/15/2023 1024 EST Screening Questions prior to Med Release 1. Do you have a fever or have had a fever of 100.4 degrees F. in the last 24 hours? no Are you taking any medication for a recent infection? no Have you had a recent illness, or changes in your health since your last infusion? If so, is your ordering provider aware? no (for Remicade, Entyvio, Inflectra, Renflexis, Rituximab, Ocrevus, pts, 'mab' patients) Have you had any recent surgeries in the last month or have any planned in the near future? no documented in this encounter Plan of Treatment Upcoming Encounters Date Type Department Care Team (Late st Contact Info) Description 04/02/2024 10:30 EDT Appointment [facility] Interventional Radiology Unit [address] [place] [address] 058261 04/02/2024 15:15 EDT Office Visit [facility] Surgical Oncology - [address] [phone] Adolfo Carreno MD 111 [facility], Level 2 [place] [phone] 04/05/2024 9:30 EDT Telemedicine [facility] Palliative Care Services [address], [place] 412071 Chichi Woods MD 111 [facility], [address] [phone] 04/11/2024 15:00 EDT Telemedicine [facility] Hematology & Oncology - [address] [phone] Alisson Carreon MD [address] [place] [address], [facility] 2 [place] [phone] 04/13/2024 13:30 EDT Appointment [facility] Hematology & Oncology - [address] [phone] 04/13/2024 14:00 EDT Appointment [facility] Hematology & Oncology [address] [phone] 04/16/2024 10:00 EST Telemedicine [facility] - [facility] Palliative Care Services [address] [place] [address] Chichi Woods MD [address] [place] [address], [address] [phone] 04/24/2024 9:00 EST Appointment [facility] Radiology CT Outpatient - [address] 913221 04/24/2024 11:00 EST Appointment [facility] Breast Imaging - [address] 8[address] 04/27/2024 12:00 EST Appointment [facility] Hematology & Oncology - [address] [phone] 05/02/2024 15:00 EST Telemedicine [facility] Hematology & Oncology - [address] 375951 Alisson Carreon MD [address] [place] [address], [facility] 2 [place] [phone] 05/04/2024 10:15 EST Ancillary Procedure [facility] Cardiology - [address] [place] [address] 05/04/2024 11:30 EST Appointment [facility] Hematology & Oncology [address] [address] 05/04/2024 12:00 EST Appointment [facility] Hematology & Oncology [address] 240061 06/12/2024 13:00 EST Appointment [facility] Radiology CT - [address] [phone] documented as of this encounter Visit Diagnoses Not on filedocumented in this encounter Care Teams Human Resources Operations Manager Relationship Specialty Start Date End Date Linda Blancas MD [facility] [address] [place] [address] PCP - General 01/06/11 Adolfo Carreno MD [address] [place] [address], [facility] 2 [place] [phone] General Surgery 04/26/19 Augustina Colin MD PhD [address] [place] [address] 2 [place] [address] Medical Oncology 04/26/19 documented as of this encounter
--- OUTSIDE RECORDS SUMMARY | 2024-03-20 14:42 | XMS_ITS | Encounter Summary ---
Author Organization [facility] Address [address] [place] [address] Care Team Providers Care Switch Inspector Name Role Phone Linda Blancas MD Primary Care Provider [phone] Adolfo Carreno MD Unavailable [phone] Augustina Colin MD PhD Unavailable Unavailable Reason for Visit * Reason Comments Follow-up Encounter Details Date Type Department Care Team (Late st Contact Info) Description 09/22/2023 16:20 EDT Telemedicine [facility] Hematology & Oncology - [address] [phone] Nadeen Blood PA-C [address] [place] [address], Level 2 [place] [phone] Primary malignant neoplasm of breast [...] Progress Notes * Nadeen Blood PA-C - 09/22/2023 1620 EDT The concept of ???Telemedicine?? has been [...] copays, deductible or coinsurance for this service. TELEMEDICINE VIDEO VISIT Today's visit was provided through telemedicine video conferencing: I have reviewed the appropriateness of using video technology with the patient with regards to today's visit. The location of the patient : Home (where patient lives) The location of the provider: Office The following people and their roles were present for today's visit: Appointment Provider: Nadeen Blood PA-C Sunshine Pleitez is a 63 y.o.yo female whom I reach at home for assessment newly on elacestrant therapy, given for metastatic breast cancer Chief Complaint Patient presents with Follow-up PROBLEM LIST: 1. 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 a. Ultrasound performed in [place] identifying an irregular heterogeneous soft tissue mass measuring 1.2 x 1.2 x 1.5 cm. b. Two punch biopsies near the site of the skin changes the right breast perfomed by Dr Carreno 10/21/2016; Pathology identified an invasive ductal type carcinoma involving the epidermis and dermis ofthe skin, nuclear grade 2, which was ER+80%, SC+20%. HER-2 1+ by IHC. ANNE MARIE revealed [...] breast tumor 07/07/17 and placement of tissue ios developer. 1.9 cm tumor at time ofsurgery, [...] Moya 04/08/22 and again 05/14/22 K. 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 Lung biopsy 06/22/23 - adenocarcinoma consistent with metastatic breast cancer; ER+ >90%, SC < 5%; HER2 2+ equivocal; [place] FISH testing negative M. Elacestrant initiated early [...] COVID positive with hospitalization June 2020 SUBJECTIVE: I reach Sendy at home. She has now been on elacestrant for about six weeks. Right aftershe started she states she developed a bad URI, which she feels made it more difficult to tease outwhat was new drug side effect, vs a symptom related to her bad cold. She had one day with severe heartburn (9/10) but this did not recur and she thinks that was a one off. She takes omeprazole but needs to space that out from elacestrant. She has a persistent cough and went to Urgent Care just yesterday, had a CXR and was given Tessalon Perles. XR apparently showed a rib fracture, but she states she's had these before, and denies rib pain. Most bothersome to her right now is constipation, which has been an issue for a few weeks. Last normal BM was about 4 days ago, although she had some hard dry chela today. She tried Dulcolax without much effect, and also is taking psyllium and Mg.She has gained several pounds, and remarks that her abdomen is a bit distended. She is fatigued, and sleeping well as a result. Eating and drinking normally. No nausea. Dry eyes which are not responding much to drops recommended by her eye MD. REVIEW OF SYMPTOMS: I went through a verbal review of symptoms with the patient. Symptoms as noted above. System review is otherwise without acute complaints. Past medical, surgical, family and social history reviewed and updated. , lives in [place] . Objective: There were no vitals taken for this visit. General appearance: alert, no distress Head: Normocephalic, without obvious abnormality, atraumatic Neurologic: Grossly normal Mental Status: mood and affect appropriate, speech and thought process intact IMAGING: Reviewed recent abdominal MRI from 08/31/23, showing worsening hepatic metastases, small volume peritoneal free fluid, and iliac metastasis. LABS: Due in a couple of days. ASSESSMENT: Metastatic breast cancer, with diagnosis and therapy as documented above. Sendy was on capecitabine for over a year, but recent restaging imaging showed progression. Therapy has been changed to elacestrant 345 mg daily. Today Sendy reports constipation as well as some belly distention, otherwise feels she is tolerating elacestrant without major side effects. She has a persistent cough since URI in early to mid August, but denies fever or significant dyspnea. PLAN: Continue daily elacestrant as prescribed. I will report Sendy's symptoms to Dr. Colin for review. She will get a set of labs closer to home in the next few days; per nursing notes labs are due on 09/25/2023. Trial MiraLAX to address constipation, continue other measures including magnesium and stool softener. Zometa appears to next be due in October; Sendy is receiving this every 3 months. Currently Sendy is scheduled for reimaging with CT of chest, abdomen and pelvis in late October, with avisit with Dr. Colin shortly thereafter to review results. I will check in with Dr. Colin whetherSendy should have another provider visit prior to late October. Follow up sooner than scheduled visit with any acute concerns or questions. I spent a total of 45 minutes on the date of this encounter meeting with the patient and reviewing documentation/coordinating care as described in the above note. No procedures were performed at the time of the visit. Nadeen Blood PA-C 09/22/2023 15:38 documented in this encounter Plan of Treatment Upcoming Encounters Date Type Department Care Team (Late st Contact Info) Description 04/02/2024 10:30 EDT Appointment [facility] Interventional Radiology Unit [address] [place] [address] [phone] 04/02/2024 15:15 EDT Office Visit [facility] Surgical Oncology - [address] 714151 Adolfo Carreno MD [address] [place] [address] 2 [place] [phone] 04/05/2024 9:30 EDT Telemedicine [facility] Palliative Care Services [address] [place] [address] [phone] Chichi Woods MD [address] [place] [phone] 04/11/2024 15:00 EDT Telemedicine [facility] Hematology & Oncology [address] 495691 Alisson Carreon MD [address] [place] [phone] 04/13/2024 13:30 EDT Appointment [facility] Hematology & Oncology [address] 074161 04/13/2024 14:00 EDT Appointment [facility] Hematology & Oncology [address] 936801 04/16/2024 10:00 EST Telemedicine [facility] Palliative Care Services [address] [place], [place] 944681 Chichi Woods MD 111 [facility], [address] [phone] 04/24/2024 9:00 EST Appointment [facility] Radiology CT Outpatient - [address] [id number] 04/24/2024 11:00 EST Appointment [facility] Breast Imaging - [facility] 1 [place], [place] 755281 04/27/2024 12:00 EST Appointment [facility] Hematology & Oncology - [address] [phone] 05/02/2024 15:00 EST Telemedicine [facility] Hematology & Oncology - [address] [phone] Alisson Carreon MD [address] [place] [address], Level 2 [place] [phone] 05/04/2024 10:15 EST Ancillary Procedure [facility] Cardiology - [address] [place] [address] 05/04/2024 11:30 EST Appointment [facility] Hematology & Oncology - [address] [phone] 05/04/2024 12:00 EST Appointment [facility] Hematology & Oncology - [address] [phone] 06/12/2024 13:00 EST Appointment [facility] Radiology CT - [address] 056061 documented as of this encounter Visit Diagnoses Diagnosis Primary malignant neoplasm of breast with metastasis (HCC-CMS)- Primary documented in this encounter Discontinued Medications Medication Sig Discontinue Reason Start Date End Da te capecitabine (XELODA) 500 mg tabletIndications:Malignan t neoplasm of right female breast, unspecified estrogen receptor status, unspecified site of breast (HCC-CMS) Take 3 Tablets by mouth every 12 hours. one week on, one week off 03/28/2023 09/22/2023 ondansetron (ZOFRAN-ODT) 8 mg disintegrating tablet Take 1 Tablet by mouth every 8 hours as needed for Nausea. 05/14/2022 09/22/2023 documented as of this encounter Care Teams Switch Inspector Relationship Specialty Start Date End Date Linda Blancas MD [facility] [address] [place] [address] PCP - General 01/06/11 Adolfo Carreno MD [address] [place] [address], [facility] 2 [place] [phone] General Surgery 04/26/19 Augustina Colin MD PhD [address] [place] [address], [facility] 2 [place] [address] Medical Oncology 04/26/19 documented as of this encounter
--- OUTSIDE RECORDS SUMMARY | 2024-03-20 14:42 | XMS_ITS | Encounter Summary ---
Author Organization [facility] Address [address] [place] [address] Care Team Providers Care Stacker And Sorter Operator Name Role Phone Linda Blancas MD Primary Care Provider [phone] Adolfo Carreno MD Unavailable [phone] Augustina Colin MD PhD Unavailable Unavailable Encounter Details Date Type Department Care Team (Late st Contact Info) Description 10/05/2023 Orders Only [facility] Hematology & Oncology - [facility] [address] [place] [address] Kaylah Stevens, [place] Malignant neoplasm of right [...] Notes * Kaylah Stevens, RN - 10/05/2023 1121 EDT Cytology and receptors order placed per request of Dr. Colin. documented in this encounter Plan of Treatment Upcoming Encounters Date Type Department Care Team (Late st Contact Info) Description 04/02/2024 10:[address] [facility] Interventional Radiology Unit [address] [place] [address] [phone] 04/02/2024 15:[address] [facility] Surgical Oncology - [address] [phone] Adolfo Carreno MD [address] [place] [phone] 04/05/2024 9:30 EDT Telemedicine [facility] - [facility] Palliative Care Services [address] [place] [address] [phone] Chichi Woods MD [address] [place] [address] [phone] 04/11/2024 15:00 EDT Telemedicine [facility] Hematology & Oncology - [address] [phone] Alisson Carreon MD [address] [place] [address] 2 [place] [phone] 04/13/2024 13:30 EDT Appointment [facility] Hematology & Oncology - [address] [address] 04/13/2024 14:00 EDT Appointment [facility] Hematology & Oncology - [address] [address] 04/16/2024 10:00 EST Telemedicine [facility] - [facility] Palliative Care Services [address] [place] [address] 114311 Chichi Woods MD [address] [place] [address] [phone] 04/24/2024 9:00 EST Appointment [facility] Radiology CT Outpatient - [address] [address] 04/24/2024 11:[address] [facility] Breast Imaging - [facility] [place] [address] [place], [place] 9[address]681 04/27/2024 12:00 EST Appointment [facility] Hematology & Oncology [address] 670481 05/02/2024 15:00 EST Telemedicine [facility] Hematology & Oncology - [address] [address] Alisson Carreon MD [address] [place], [place] [address]ili, Level [address] [place] [phone] 05/04/2024 10:[address] [facility] Cardiology [place] [place] [address] 05/04/2024 11:30 EST Appointment [facility] Hematology & Oncology - [address] [phone] 05/04/2024 12:00 EST Appointment [facility] Hematology & Oncology - [address] 910111 06/12/2024 13:00 EST Appointment [facility] Radiology CT - [address] 667831 documented as of this encounter Visit Diagnoses Diagnosis Malignant neoplasm of right female breast, unspecified estrogen receptor status, unspecified site of breast ([facility])- Primary documented in this encounter Care Teams Stacker And Sorter Operator Relationship Specialty Start Date End Date Linda Blancas MD [facility] [address] [place] [address] PCP - General 01/06/11 Adolfo Carreno MD [address] [place] [address], [facility] 2 [place] [phone] General Surgery 04/26/19 Augustina Colin MD PhD [address] [place] [address] 2 [place] [phone] Medical Oncology 04/26/19 documented as of this encounter
--- OUTSIDE RECORDS SUMMARY | 2024-03-20 14:42 | XMS_ITS | Encounter Summary ---
Author Organization [facility] Address [address] [place] [address] Care Team Providers Care Wire Turning Machine Operator Name Role Phone Linda Blancas MD Primary Care Provider [phone] Adolfo Carreno MD Unavailable [phone] Augustina Colin MD PhD Unavailable Unavailable Encounter Details Date Type Department Care Team (Late st Contact Info) Description 08/25/2023 Orders Only [facility] Cancer Center Hematology & Oncology - [facility] [address] [place] [address] Kaylah Stevens, [place] Malignant neoplasm of right [...] Progress Notes * Kaylah Stevens, RN - 08/25/2023 1533 EDT Lab orders placed per Dr. Colin to be drawn at [facility] in [place] per pt's request. Orders faxed to lab at [phone]. Pt updated. documented in this encounter Plan of Treatment Upcoming Encounters Date Type Department Care Team (Late st Contact Info) Description 04/02/2024 10:30 EDT Appointment [facility] Interventional Radiology Unit [address] [place] [address] [phone] 04/02/2024 15:15 EDT Office Visit [facility] Surgical Oncology - [address] [phone] Adolfo Carreno MD [address] [place] [address], [facility] 2 [place] [phone] 04/05/2024 9:30 EDT Telemedicine [facility] - [facility] Palliative Care Services [address] [place], [place] 584501 Chichi Woods MD [address] [place] [address], [place] [address] [place] [phone] 04/11/2024 15:00 EDT Telemedicine [facility] Hematology & Oncology - [address] [phone] Alisson Carreon MD [address] [place] [address], Level [address] [place] [phone] 04/13/2024 13:30 EDT Appointment [facility] Hematology & Oncology [address] 533561 04/13/2024 14:00 EDT Appointment [facility] Hematology & Oncology - [address] 920481 04/16/2024 10:00 EST Telemedicine [facility] - [facility] Palliative Care Services [address] [place] [address] [phone] Chichi Woods MD [address] [place] [address], [place] [address] [place] [phone] 04/24/2024 9:00 EST Appointment [facility] Radiology CT Outpatient - [address] [phone] 04/24/2024 11:00 EST Appointment [facility] Breast Imaging - [facility] [address] [phone] 04/27/2024 12:00 EST Appointment [facility] Hematology & Oncology - [address] 243021 05/02/2024 15:00 EST Telemedicine [facility] Hematology & Oncology - [address] 050961 Alisson Carreon MD [address] [place] [address], Level [address] [place] [phone] 05/04/2024 10:15 EST Ancillary Procedure [facility] Cardiology - [address] [place], [place] [phone] 05/04/2024 11:30 EST Appointment [facility] Hematology & Oncology - [address] [address] 05/04/2024 12:00 EST Appointment [facility] Hematology & Oncology [address] [address] 06/12/2024 13:00 EST Appointment [facility] Radiology CT - [address] [address] documented as of this encounter Visit Diagnoses Diagnosis Malignant neoplasm of right female breast, unspecified estrogen receptor status, unspecified site of breast ([facility])- Primary documented in this encounter Orders Lab Orders Without Results Count Last Ordered D ate First Ordered Date CA 27.29 1 08/25/2023 COMPLETE BLOOD COUNT AND DIFFERENTIAL 1 COMPREHENSIVE METABOLIC PANE L (ONCOLOGY USE ONLY-INC MG) 1 08/25/2023 documented in this encounter Care Teams Wire Turning Machine Operator Relationship Specialty Start Date End Date Linda Blancas MD [facility] [address] [place] [address] PCP - General 01/06/11 Adolfo Carreno MD [address] [place] [phone] General Surgery 04/26/19 Augustina Colin MD PhD [address] [place] [phone] Medical Oncology 04/26/19 documented as of this encounter
--- OUTSIDE RECORDS SUMMARY | 2024-03-20 14:42 | XMS_ITS | Encounter Summary ---
Author Organization [facility] Address [address] [place] [address] Care Team Providers Care Recovery Assistant Name Role Phone Linda Blancas MD Primary Care Provider [phone] Adolfo Carreno MD Unavailable [phone] Augustina Colin MD PhD Unavailable Unavailable Reason for Visit * Reason Comments IR Procedure Follow-up Encounter Details Date Type Department Care Team (Late st Contact Info) Description 09/14/2023 14:00 EDT Telemedicine [facility] Interventional Radiology - [address] [address] David Moya MD 111 [facility], Level 1 [place] [phone] Metastases to the liver (HCC-CMS) (Primary Dx) [...] Progress Notes * David Moya MD - 09/14/2023 1400 EDT Subjective: Patient ID: Sunshine Pleitez is an 63 y.o. female. Chief Complaint Patient presents with IR Procedure Follow-up Type of visit: Televideo Medical oncologist: Augustina Colin HPI 63-year-old female seen in follow-up after liver directed therapy for liver metastases from breast cancer. Patient with a long cancer history, with extrahepatic metastases to her mediastinum, cervical lymph nodes, lungs, and bones who developed liver specific disease progression. Patient was also having significant side effects from chemotherapy. On 04/08/2022, she underwent right lobar conventional dose transarterial radioembolization of the liver. On 05/14/2022, she underwent conventional doseradioembolization to the left lobe of her liver. Patient feels well. Patient just switched to a newsystemic therapy at the beginning of August, and her hands and feet are improving dramatically. Patie nt continues to deal with constipation. ECOG performance status of 1. MRI of the liver 08/31/2023 reveals progressive disease in the liver, with growth of existing liver metastases, and multiple new liver metastases. Bone scan 06/21/2023 shows progressive disease in multiple skeletal metastatic lesions. Labs 08/15/2023 significant for creatinine of 0.6, albumin 3.2, total bilirubin 1.3, platelets 127. Patient Active Problem List Diagnosis Papanicolaou smear [...] Primary malignant neoplasm of breast with metastasis ([facility]) Malignant neoplasm of female breast ([facility]) Encounter for palliative care Osteopenia S/P breast [...] fussion no issues currently 08/25/20 Breast cancer ([facility]) November 2003 DCIS - right breast Breast cancer, right ([facility]) Depression 08/25/20 well controlled Environmental allergies Exercise involving walking GERD (gastroesophageal reflux disease) well controlled 08/25/20 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 [...] - [place] no complications BREAST SURGERY 08/2018 life underwriter placed right breast - [place] no complications CARPAL TUNNEL RELEASE 200705/07/2019 beir block - no complications FOOT SURGERY 05/2021 right big toe fused, right little toe screw LIPOMA RESECTION 200005/07/2019 [place] no complications MASTECTOMY Right CO INSJ/RPLCMT BREAST IMPLANT Feb MASTECTOMY Bilateral 05/30/2019 Exchange right tissue life underwriter to silicone implant, exchange of left implant for matching performedby Tylor Boss MD at [facility] OR Family History Problem Relation Age of Onset Cancer Father bladder Stroke Mother Cancer Brother 59 esophageal Stroke Brother Liver Disease Brother Cancer Maternal Uncle bladder Breast Cancer Paternal Aunt 35 Cancer Paternal Aunt 35 breast Social Social History Tobacco Use Smoking status: Never Smokeless tobacco: Never Vaping Use Vaping Use: Never used Substance Use Topics Alcohol use: Yes Alcohol/week: 2.0 standard drinks of alcohol Types: 2 Glasses of wine per week Drug use: No No outpatient medications have been marked as taking for the 09/14/23 encounter (Telemedicine) with David Moya MD. Allergies Allergen Reactions Amoxicillin Other (See Comments) and Rash Red rash Sulfa (Sulfonamide Antibiotics) Hives Light lavender rash Sulfamethoxazole-Trimethoprim Rash ROS - See HPI Objective: There were no vitals taken for this visit. Physical Exam Not performed Assessment: 63-year-old female with liver metastases from breast cancer status post transarterial radioembolization of the liver. Patient has progressive disease in her liver, however also has progressive disease in her extrahepatic sites as well, and has recently changed her systemic therapy. With the extrahepatic disease progression, there is no indication for further liver directed therapy at this time. The patient is expecting a change in her medical oncologist in November, and is scheduled for restaging CT chest, abdomen, and pelvis at the end of October. As there is no plan for further liver directed therapy at this point, would hold on further MRIs of the liver and focus on the total disease burden. Plan: Sunshine was seen today for ir procedure follow-up. Diagnoses and all orders for this visit: Metastases to the liver (HCC-CMS) Office visit in early November after her CT chest, abdomen, and pelvis. I spent a total of 30 minutes in disease review, image review, counseling, treatment planning and coordination of care as described in the progress note. David Moya MD TELEMEDICINE VIDEO VISIT Today's visit was provided [...] Contact Info) Description 04/02/2024 10:30 EDT Appointment [facility] Interventional Radiology Unit [address] [place] [address] 04/02/2024 15:15 EDT Office Visit [facility] Surgical Oncology - [address] [phone] Adolfo Carreno MD [address] [place] [address] [phone] 04/05/2024 9:30 EDT Telemedicine [facility] Palliative Care Services [address] [place] [address] [phone] Chichi Woods MD [address] [place] [address] [phone] 04/11/2024 15:00 EDT Telemedicine [facility] Hematology & Oncology - [address] [phone] Alisson Carreon MD [address] [place] [address] [phone] 04/13/2024 13:30 EDT Appointment [facility] Hematology & Oncology [address] [phone] 04/13/2024 14:00 EDT Appointment [facility] Hematology & Oncology [address] [address] 04/16/2024 10:00 EST Telemedicine [facility] Palliative Care Services [address] [place] [address] [phone] Chichi Woods MD [address] [place] [address] [phone] 04/24/2024 9:00 EST Appointment [facility] Radiology CT Outpatient - [address] [id number] 04/24/2024 11:00 EST Appointment [facility] Breast Imaging - [facility] [address] [place], [place] 023231 04/27/2024 12:00 EST Appointment [facility] Hematology & Oncology - [address] [address] 05/02/2024 15:00 EST Telemedicine [facility] Hematology & Oncology [address] 338661 Alisson Carreon MD [address] [place] [address] [phone] 05/04/2024 10:15 EST Ancillary Procedure [facility] Cardiology - [address] [place] [address] 05/04/2024 11:30 EST Appointment [facility] Hematology & Oncology - [address] [address] 05/04/2024 12:00 EST Appointment [facility] Hematology & Oncology - [address] [phone] 06/12/2024 13:00 EST Appointment [facility] Radiology CT - [address] [phone] documented as of this encounter Visit Diagnoses Diagnosis Metastases to the liver (HCC-CMS)- Primary Secondary malignant neoplasm of liver documented in this encounter Care Teams Recovery Assistant Relationship Specialty Start Date End Date Linda Blancas MD [facility] [address] [place] [address] PCP - General 01/06/11 Adolfo Carreno MD [address] [place] [address] [phone] General Surgery 04/26/19 Augustina Colin MD PhD [address] [place] [address], [facility] 2 [place] [phone] Medical Oncology 04/26/19 documented as of this encounter
--- OUTSIDE RECORDS SUMMARY | 2024-03-20 14:42 | XMS_ITS | Encounter Summary ---
Author Organization [facility] Address [address] [place] [address] Care Team Providers Care Sports Fitness And Wellness Director Name Role Phone Linda Blancas MD Primary Care Provider [phone] Adolfo Carreno MD Unavailable [phone] Augustina Colin MD PhD Unavailable Unavailable Reason for Visit * Radiology Services (STAT) - Authorization Not Required Specialty Diagnoses / Procedures [facility]erred To Contact Diagnoses Malignant neoplasm of right female breast, unspecified estrogen receptor status, unspecified site of breast (HCC-CMS) Primary malignant neoplasm of breast with metastasis (HCC-CMS) Procedures IR LIMITED U/S ABDOMEN IR PARACENTESIS-RADIOLOGY Augustina Colin MD PhD [facility] Referral ID Status Reason Start Date Expiration Date Visits Requested Visits Authorized [id number] Authorization Not Required 10/05/2023 1 1 Encounter Details Date Type Department Care Team (Late st Contact Info) Description 10/06/2023 7:48 EDT - 10/06/2023 23:59 EDT Hospital Encounter [facility] Interventional Radiology Unit [address] [place] [address] [phone] Uche Wilson PA-C [address] [phone] Guerrero Palumbo MD [address] [phone] Other ascites (Primary Dx); Malignant neoplasm of right female [...] this encounter Discharge Instructions * Discharge Instructions* Holly Pacheco RN - 10/06/2023 8:27 EDT Interventional Radiology Discharge Instructions Date: 10/06/2023 Procedure: Paracentesis (removal of fluid from your [...] after your procedure. When to contact the [facility] (call 911 if symptoms are [...] Tablets by mouth as needed. 12/07/2023 mv-mn/C/glutamin/lysin /vird980 (A[place], ASCORBATE SODIUM, ORAL) Take by mouth [...] documented in this encounter Progress Notes * Holly Pacheco RN - 10/06/2023 0830 EDT Procedure: Therapeutic Paracentesis Patient arrived from to IR 26 at 0842. Patient name and verified using armband and verbally.Consent completed and verified. Patient is alert and oriented x 4, able to follow commands with allextremities, able to make needs known. Patients allergies, medications and lab results reviewed. Patient educated on procedure, patient verbalized understanding. Patient placed in supine position on stretcher. Vital signs assessed. A pre-procedure ultrasound was completed to assess fluid volume. Volume not present to drain or obtain labs. Pt recommended to stop by Dr. Colin' office for further questions. documented in this encounter Procedure Notes * Uche Wilson PA-C - 10/06/2023 0830 EDT IR Procedure Note Procedure: Limited U/S abdomen Date Performed: 10/06/2023 Radiologist/Senior Network Systems Engineer(s): MD Lin[place]/GRISEL Wilson Sedation/Anesthesia: None Time Out: A time-out was completed prior to procedure verifying correct patient, procedure, site, positioning, and special equipment if applicable. Estimated Blood Loss: Unless otherwise noted, there was no blood loss, specimens removed, cultures obtained, or drains retained. Specimens: N/A Fluoroscopy Time: See dictated procedure note Contrast Volume: none Complications: none Condition: stable Post Procedure Diagnosis: Ascites Findings: Limited ultrasound of abdomen shows tiny amount of ascitic fluid. Paracentesis not performed. Recommendations: F/U IR PRN Uche Wilson PA-C 10/06/2023 9:02 documented in this encounter Plan of Treatment Upcoming Encounters Date Type Department Care Team (Late st Contact Info) Description 04/02/2024 10:30 EDT Appointment [facility] Interventional Radiology Unit [address] [place] [address] [phone] 04/02/2024 15:15 EDT Office Visit [facility] Surgical Oncology - [address] 359401 Adolfo Carreno MD 111 [facility], Level 2 [place] [phone] 04/05/2024 9:30 EDT Telemedicine [facility] - [facility] Palliative Care Services [address] [place], [place] [phone] Chichi Woods MD 111 [facility], [address] [phone] 04/11/2024 15:00 EDT Telemedicine [facility] Hematology & Oncology - Main [address] [phone] Alisson Carreon MD [address] [place] [address] 2 [place] [phone] 04/13/2024 13:30 EDT Appointment [facility] Hematology & Oncology - [address] [phone] 04/13/2024 14:00 EDT Appointment [facility] Hematology & Oncology - [address] [phone] 04/16/2024 10:00 EST Telemedicine [facility] - [facility] Palliative Care Services [address] [place] [address] [phone] Chichi Woods MD [address] [place] [phone] 04/24/2024 9:00 EST Appointment [facility] Radiology CT Outpatient - [address] [id number] 04/24/2024 11:00 EST Appointment [facility] Breast Imaging - [facility] [address] [phone] 04/27/2024 12:00 EST Appointment [facility] Hematology & Oncology - [address] [phone] 05/02/2024 15:00 EST Telemedicine [facility] Hematology & Oncology - [address] [phone] Alisson Carreon MD [address] [place] [address], [facility] 2 [place] [phone] 05/04/2024 10:15 EST Ancillary Procedure [facility] Cardiology - [address] [place], [place] [phone] 05/04/2024 11:30 EST Appointment [facility] Hematology & Oncology [address] [address] 05/04/2024 12:00 EST Appointment [facility] Hematology & Oncology [address] [address] 06/12/2024 13:00 EST Appointment [facility] Radiology CT - [address] [address] documented as of this encounter Procedures Procedure Name Priority Date/Time Associated Diagnosis Comments IR LIMITED U/S ABDOMEN STAT 10/06/2023 8:59 EDT Malignant neoplasm of right female breast, unspecified estrogen receptor status, unspecified site of breast (HCC-CMS) Primary malignant neoplasm of breast with metastasis (HCC-CMS) documented in this encounter Results * IR LIMITED U/S ABDOMEN (10/06/2023 8:59 EDT) Anatomical Region Laterality Modality N/A X-Ray Angiograph y 10/06/2023 17:2 1 EDT Impressions 10/06/2023 17:21 EDT Limited ultrasound abdomen. LUNA Arguelles, PA-C Interventional Radiology The procedure was performed by TANK Arguelles, in interventional radiology. Direct supervision was provided by the attending physician, Dr. Palumbo. [id number] Narrative 10/06/2023 17:21 EDT IR LIMITED U/S ABDOMEN 10/06/2023 8:40 AM Patient: SUNSHINE SUBRAMANIAN Indication: ??Ascites Limited ultrasound of abdomen shows tiny amount of ??fluid. Paracentesis not performed. Procedure Note Guerrero Palumbo MD - 10/06/2023 IR LIMITED U/S ABDOMEN 10/06/2023 8:40 AM Patient: SUNSHINE SUBRAMANIAN Indication: Ascites Limited ultrasound of abdomen shows tiny amount of fluid. Paracentesis not performed. IMPRESSION Limited ultrasound abdomen. LUNA Arguelles, PA-C Interventional Radiology The procedure was performed by TANK Arguelles, in interventionalradiology. Direct supervision was provided by the attending physician, . [id number] Augustina Colin MD PhD IMG IR ORDERABLES documented in this encounter Visit Diagnoses Diagnosis Other ascites- Primary Malignant neoplasm of right female breast, unspecified estrogen receptor status, unspecified site of breast (HCC-CMS) Primary malignant neoplasm of breast with metastasis (HCC-CMS) documented in this encounter Care Teams Sports Fitness And Wellness Director Relationship Specialty Start Date End Date Linda Blancas MD [facility] [address] [place] [address] PCP - General 01/06/11 Adolfo Carreno MD [address] [place] [address], [facility] 2 [place] [phone] General Surgery 04/26/19 Augustina Colin MD PhD [address] [place] [address], [facility] 2 [place] [phone] Medical Oncology 04/26/19 documented as of this encounter
--- OUTSIDE RECORDS SUMMARY | 2024-03-20 14:43 | XMS_ITS | Encounter Summary ---
Author Organization [facility] Address [address] [place] [address] Care Team Providers Care Coordinator Of Genetic Services Name Role Phone Linda Blancas MD Primary Care Provider [phone] Adolfo Carreno MD Unavailable Augustina Colin MD PhD Unavailable Unavailable Reason for Visit * Reason Onset Date Comments Appointment Related 07/28/2023 Called pt to schedule next Zometa infusion Encounter Details Date Type Department Care Team (Late st Contact Info) Description 07/28/2023 Telephone [facility] [address] [place], [place] 280611 Sendy Arias Appointment Related (Called pt to schedule next Zometa infusion ) Social History Tobacco Use Types Packs/Day Years [...] encounter Miscellaneous Notes * Telephone Encounter - Sendy Arias - 07/28/2023 1348 EST Called to schedule infusion documented in this encounter Plan of Treatment Upcoming Encounters Date Type Department Care Team (Late st Contact Info) Description 04/02/2024 10:30 EDT Appointment [facility] Interventional Radiology Unit [address] [place] [address] 04/02/2024 15:15 EDT Office Visit [facility] Surgical Oncology - [facility] [address] [place], [place] 262901 Adolfo Carreno MD [address] [place] [address] 2 [place] [phone] 04/05/2024 9:30 EDT Telemedicine [facility] - [facility] Palliative Care Services [address] [place] [address] Chichi Woods MD [address] [place] [address], [address] [phone] 04/11/2024 15:00 EDT Telemedicine [facility] Hematology & Oncology [address] [phone] Alisson Carreon MD [address] [place] [address] 2 [place] [phone] 04/13/2024 13:30 EDT Appointment [facility] Hematology & Oncology - [address] [address] 04/13/2024 14:00 EDT Appointment [facility] Hematology & Oncology [address] [address] 04/16/2024 10:00 EST Telemedicine [facility] - [facility] Palliative Care Services [address] [place] [address] 450261 Chichi Woods MD [address] [place] [address], [address] [phone] 04/24/2024 9:00 EST Appointment [facility] Radiology CT Outpatient - [address] [id number] 04/24/2024 11:00 EST Appointment [facility] Breast Imaging - [facility] [address] [place], [place] 831731 04/27/2024 12:00 EST Appointment [facility] Hematology & Oncology [address] [id number] 05/02/2024 15:00 EST Telemedicine [facility] Hematology & Oncology [address] [phone] Alisson Carreon MD [address] [place] [address], [address] [place] [phone] 05/04/2024 10:15 EST Ancillary Procedure [facility] Cardiology [place] [place] [address] 05/04/2024 11:30 EST Appointment [facility] Hematology & Oncology [address] [phone] 05/04/2024 12:00 EST Appointment [facility] Hematology & Oncology - [address] [phone] 06/12/2024 13:00 EST Appointment [facility] Radiology CT - [address] 390961 documented as of this encounter Visit Diagnoses Not on filedocumented in this encounter Care Teams Coordinator Of Genetic Services Relationship Specialty Start Date End Date Linda Blancas MD [facility] [address] [place] [address] PCP - General 01/06/11 Adolfo Carreno MD [address] [place] [phone] General Surgery 04/26/19 Augustina Colin MD PhD [address] [place] [phone] Medical Oncology 04/26/19 documented as of this encounter
--- OUTSIDE RECORDS SUMMARY | 2024-03-20 14:43 | XMS_ITS | Encounter Summary ---
Author Organization [facility] Address [address] [place] [address] Care Team Providers Care Mobile Sales Expert Name Role Phone Linda Blancas MD Primary Care Provider Adolfo Carreno MD Unavailable [phone] Augustina Colin MD PhD Unavailable Unavailable Encounter Details Date Type Department Care Team (Late st Contact Info) Description 07/14/2023 Orders Only [facility] Hematology & Oncology - [facility] [address] [place] [address] Lois Bautista RN Social History Tobacco Use [...] [facility] Inter[facility] Unit [address] [place] [address] [phone] 04/02/2024 15:15 EDT Office Visit [facility] Surgical Oncology - [address] [phone] Adolfo Carreno MD [address] [place] [address] [phone] 04/05/2024 9:30 EDT Telemedicine [facility] - [facility] Palliative Care Services [address] [place] [address] 408491 Chichi Woods MD [address] [place] [address] [phone] 04/11/2024 15:00 EDT Telemedicine [facility] Hematology & Oncology [address] [phone] Alisson Carreon MD [address] [place] [address] [phone] 04/13/2024 13:30 EDT Appointment [facility] Hematology & Oncology [address] [phone] 04/13/2024 14:00 EDT Appointment [facility] Hematology & Oncology [address] [phone] 04/16/2024 10:00 EST Telemedicine [facility] - [facility] Palliative Care Services [address] [place] [address] [phone] Chichi Woods MD [address] [place] [address], [address] [place] [phone] 04/24/2024 9:00 EST Appointment [facility] Radiology CT Outpatient - [address] [id number] 04/24/2024 11:00 EST Appointment [facility] Breast Imaging - [facility] 1 [place], [place] 379531 04/27/2024 12:00 EST Appointment [facility] Hematology & Oncology - [address] 011221 05/02/2024 15:00 EST Telemedicine [facility] Hematology & Oncology - [address] [phone] Alisson Carreon MD [address] [place] [address], [facility], Level [address] [place] [phone] 05/04/2024 10:15 EST Ancillary Procedure [facility] Cardiology - [address] [place], [place] [phone] 05/04/2024 11:30 EST Appointment [facility] Hematology & Oncology - [address] [phone] 05/04/2024 12:00 EST Appointment [facility] Hematology & Oncology [address] [phone] 06/12/2024 13:00 EST Appointment [facility] Radiology CT - [address] [phone] documented as of this encounter Visit Diagnoses Not on filedocumented in this encounter Care Teams Mobile Sales Expert Relationship Specialty Start Date End Date Linda Blancas MD [facility] [address] [place] [address] PCP - General 01/06/11 Adolfo Carreno MD [address] [place] [address], [facility] 2 [place] [phone] General Surgery 04/26/19 Augustina Colin MD PhD [address] [place] [address], [facility] 2 [place] [phone] Medical Oncology 04/26/19 documented as of this encounter
--- OUTSIDE RECORDS SUMMARY | 2024-03-20 14:43 | XMS_ITS | Encounter Summary ---
Author Organization [facility] Address [address] [place] [address] Care Team Providers Care Manager Search Engine Name Role Phone Linda Blancas MD Primary Care Provider [phone] Adolfo Carreno MD Unavailable [phone] Augustina Colin MD PhD Unavailable Unavailable Reason for Visit * Reason Onset Date Comments Results 08/02/2023 Medication Management 08/02/2023 Encounter Details Date Type Department Care Team (Late st Contact Info) Description 08/02/2023 Telephone [facility] Hematology & Oncology - Main [place] [address] [place] [address] Augustina Colin, PhD Results; Medication Management Social History Tobacco Use Types [...] Telephone Encounter - Kaylah Stevens RN - 08/12/2023 1559 EST Pt should be starting elacestrant over the weekend. Pt will have fasting lipid labs on 08/14 with PV. * Telephone Encounter - Kaylah Stevens RN - 08/02/2023 1441 EST Returned call to pt about HER2 results and elacestrant start. No answer, left VM, awaiting pt response. * Telephone Encounter - Pippa Black - 08/02/2023 1415 EST Patient calling. Asking if [facility] has sent biopsy result from breast tissue samples for HER2 classification. Also looking for information for health assistance program for [employer]. documented in this encounter Plan of Treatment Upcoming Encounters Date Type Department Care Team (Late st Contact Info) Description 04/02/2024 10:30 EDT Appointment [facility] Interventional Radiology Unit [address] [place] [address] [phone] 04/02/2024 15:15 EDT Office Visit [facility] Surgical Oncology - [address] [phone] Adolfo Carreno MD 111 [facility], Level 2 [place] [phone] 04/05/2024 9:30 EDT Telemedicine [facility] Palliative Care Services [address] [place] [address] 727671 Chichi Woods MD [address] [place] [address] [phone] 04/11/2024 15:00 EDT Telemedicine [facility] Hematology & Oncology - [address] [phone] Alisson Carreon MD [address] [place] [address], Level 2 [place] [phone] 04/13/2024 13:30 EDT Appointment [facility] Hematology & Oncology - [address] 886011 04/13/2024 14:00 EDT Appointment [facility] Hematology & Oncology [address] [id number] 04/16/2024 10:00 EST Telemedicine [facility] Palliative Care Services [address] [place] [address] 675321 Chichi Woods MD [address] [place] [address] [phone] 04/24/2024 9:00 EST Appointment [facility] Radiology CT Outpatient - [address] 943151 04/24/2024 11:00 EST Appointment [facility] Breast Imaging - [address] [phone] 04/27/2024 12:00 EST Appointment [facility] Hematology & Oncology - [address] 249351 05/02/2024 15:00 EST Telemedicine [facility] Hematology & Oncology [address] 517911 Alisson Carreon MD [address] [place] [address] [phone] 05/04/2024 10:15 EST Ancillary Procedure [facility] Cardiology - [place] [place] [address] 05/04/2024 11:30 EST Appointment [facility] Hematology & Oncology [address] [phone] 05/04/2024 12:00 EST Appointment [facility] Hematology & Oncology [address] [phone] 06/12/2024 13:00 EST Appointment [facility] Radiology CT - [address] 285101 documented as of this encounter Visit Diagnoses Not on filedocumented in this encounter Care Teams Manager Search Engine Relationship Specialty Start Date End Date Linda Blancas MD [address] [place] [address] PCP - General 01/06/11 Adolfo Carreno MD [address] [place] [address] [phone] General Surgery 04/26/19 Augustina Colin MD PhD [address] [place] [phone] Medical Oncology 04/26/19 documented as of this encounter
--- OUTSIDE RECORDS SUMMARY | 2024-03-20 14:43 | XMS_ITS | Encounter Summary ---
Author Organization [facility] Address [address] [place] [address] Care Team Providers Care Time Lock Expert Name Role Phone Linda Blancas MD Primary Care Provider [phone] Adolfo Carreno MD Unavailable [phone] Augustina Colin MD PhD Unavailable Unavailable Reason for Visit * Reason Onset Date Comments Social Work 08/05/2023 Co-pay assistanc e Encounter Details Date Type Department Care Team (Late st Contact Info) Description 08/05/2023 Telephone [facility] Cancer Center Hematology & Oncology - Main [place] [address] [place], [place] [phone] Trinh Posey Social Work (Co-pay assistance) Social History Tobacco Use Types Packs/Day Years [...] * Telephone Encounter - Trinh Posey - 08/05/2023 1006 EST Received a fax and VM from [employer] [facility] stating information was missing from the application. I spoke with a entry level sales representative and she said a date was missing on Section 5 of HCP form. I let rep know I will fax this on Tuesday when I'm back in office. Addendum 08/08/23- [facility] requested that I re-fax a page of the application. Completed Addendum- Dr. Colin forwarded an email she received from [employer] [facility] [employer] [facility] stating: Just a quick update on your patient initials KO and her Orserdu. Her plan returned a high co-pay and the patient declined to be enrolled in our funding program; instead, our notes show the patient isopting to try and find funding through [facility]. If you'd like, please ask your nurse to reach out to meand I can give them an overview of how our funding program works Plan- I called [facility] and spoke with a Rep who said pt's application was still being processed. Shedidn't find any notes on pt's account stating anyone had spoken with pt. Per Rep, pt's application is still being processed and they will reach out when complete. I sent a reply to Filiberto Lyons and asked for clarification. documented in this encounter Plan of Treatment Upcoming Encounters Date Type Department Care Team (Late st Contact Info) Description 04/02/2024 10:30 EDT Appointment [facility] Interventional Radiology Unit [address] [place] [address] 04/02/2024 15:15 EDT Office Visit [facility] Surgical Oncology - [address] [phone] Adolfo Carreno MD [address] [place] [address] 2 [place] [phone] 04/05/2024 9:30 EDT Telemedicine [facility] Palliative Care Services [address] [place] [address] [phone] Chichi Woods MD [address] [place] [address] [phone] 04/11/2024 15:00 EDT Telemedicine [facility] Hematology & Oncology - [address] [address] Alisson Carreon MD [address] [place] [address] 2 [place] [phone] 04/13/2024 13:30 EDT Appointment [facility] Hematology & Oncology - [address] [phone] 04/13/2024 14:00 EDT Appointment [facility] Hematology & Oncology - [address] [phone] 04/16/2024 10:00 EST Telemedicine [facility] Palliative Care Services [address] [place] [address] [phone] Chichi Woods MD [address] [place] [address] [phone] 04/24/2024 9:00 EST Appointment [facility] Radiology CT Outpatient - [address] [id number] 04/24/2024 11:00 EST Appointment [facility] Breast Imaging - [facility] [address] [place] [address] [place], [place] 499311 04/27/2024 12:00 EST Appointment [facility] Hematology & Oncology [address] [address] 05/02/2024 15:00 EST Telemedicine [facility] Hematology & Oncology [address] 880441 Alisson Carreon MD [address] [place] [address] [phone] 05/04/2024 10:15 EST Ancillary Procedure [facility] Cardiology - [address] [place] [address] 05/04/2024 11:30 EST Appointment [facility] Hematology & Oncology [address] [phone] 05/04/2024 12:00 EST Appointment [facility] Hematology & Oncology [address] [phone] 06/12/2024 13:00 EST Appointment [facility] Radiology CT - [address] [phone] documented as of this encounter Visit Diagnoses Not on filedocumented in this encounter Care Teams Time Lock Expert Relationship Specialty Start Date End Date Linda Blancas MD [address] [place] [address] 30 [place] [address] PCP - General 01/06/11 Adolfo Carreno MD [address] [place] [address] [phone] General Surgery 04/26/19 Augustina Colin MD PhD [address] [facility], Level 2 [place] [address] Medical Oncology 04/26/19 documented as of this encounter
--- OUTSIDE RECORDS SUMMARY | 2024-03-20 14:43 | XMS_ITS | Encounter Summary ---
Author Organization [facility] Address [address] [place] [address] Care Team Providers Care Inseminator Name Role Phone Linda Blancas MD Primary Care Provider [phone] Adolfo Carreno MD Unavailable [phone] Augustina Colin MD PhD Unavailable Unavailable Encounter Details Date Type Department Care Team (Late st Contact Info) Description 07/13/2023 Orders Only [facility] Cancer Center Hematology & Oncology - [facility] [address] [place] [address] Lety Hadley, RN Osteopenia of necks of both femurs (Primary Dx) Social History Tobacco Use Types [...] as of this encounter Progress Notes * Lety Hadley, RN - 07/13/2023 1712 EST New scheduling orders added for Wes HADLEY RN documented in this encounter Plan of Treatment Upcoming Encounters Date Type Department Care Team (Late st Contact Info) Description 04/02/2024 10:30 EDT Appointment [facility] Interventional Radiology Unit [address] [place] [address] [phone] 04/02/2024 15:15 EDT Office Visit [facility] Surgical Oncology - [address] [phone] Adolfo Carreno MD [address] [place] [address] [phone] 04/05/2024 9:30 EDT Telemedicine [facility] - [facility] Palliative Care Services [address] [place] [address] [phone] Chichi Woods MD [address] [place] [address], [address] [phone] 04/11/2024 15:[address] [facility] Hematology & Oncology - [address] [phone] Alisson Carreon MD [address] [place] [address] 2 [place] [phone] 04/13/2024 13:[address] [facility] Hematology & Oncology - [address] [phone] 04/13/2024 14:[address] [facility] Hematology & Oncology [address] 609731 04/16/2024 10:00 EST Telemedicine [facility] - [facility] Palliative Care Services [address] [place] [address] [phone] Chichi Woods MD [address] [place] [address], [address] [phone] 04/24/2024 9:00 EST Appointment [facility] Radiology CT Outpatient - [address] [id number] 04/24/2024 11:00 EST Appointment [facility] Breast Imaging - [facility] [place] 1 [place], [place] 206611 04/27/2024 12:[address] [facility] Hematology & Oncology [address] 231411 05/02/2024 15:[address] [facility] Hematology & Oncology [address] [phone] Alisson Carreon MD [address] [place] [address], Level 2 [place] [phone] 05/04/2024 10:15 EST Ancillary Procedure [facility] Cardiology - [place] [address] 05/04/2024 11:[address] [facility] Hematology & Oncology [address] 243101 05/04/2024 12:[address] [facility] Hematology & Oncology - [address] [phone] 25 06/12/2024 13:00 [facility] Radiology CT - [address] 098191 documented as of this encounter Visit Diagnoses Diagnosis Osteopenia of necks of both femurs- Primary documented in this encounter Care Teams Inseminator Relationship Specialty Start Date End Date Linda Blancas MD [facility] [address] [place] [address] PCP - General 01/06/11 Adolfo Carreno MD [address] [place] [address] [phone] General Surgery 04/26/19 Augustina Colin MD PhD [address] [place] [address] 2 [place] [phone] Medical Oncology 04/26/19 documented as of this encounter
--- OUTSIDE RECORDS SUMMARY | 2024-03-20 14:43 | XMS_ITS | Encounter Summary ---
Author Organization [facility] Address [address] [place] [address] Care Team Providers Care Any Commodity Buyer Name Role Phone Linda Blancas MD Primary Care Provider [phone] Adolfo Carreno MD Unavailable [phone] Augustina Colin MD PhD Unavailable Unavailable Reason for Visit * Reason Onset Date Comments Social Work 08/10/2023 Copay assistance Encounter Details Date Type Department Care Team (Late st Contact Info) Description 08/10/2023 Telephone [facility] Cancer Center Hematology & Oncology - [facility] [address] [place], [place] [phone] Trinh Posey Social Work (Copay assistance) Social History Tobacco Use Types Packs/Day [...] * Telephone Encounter - Trinh Posey - 08/10/2023 1514 EST Called [employer] [facility] to check on status of pt's application for free drug (Orserdu). I was told that her application has been processed but they need proof of income. They did a creditcheck and it came back different than what pt indicated on application. Rep asked that pt send them a copy of her 1040 for 2021. Called pt and she said a Rep from [facility] had left her a VM yesterday with this request. She will fax/email them POI. Pt will email me with any updates documented in this encounter Plan of Treatment Upcoming Encounters Date Type Department Care Team (Late st Contact Info) Description 04/02/2024 10:30 EDT Appointment [facility] Interventional Radiology Unit [address] [place] [address] [phone] 04/02/2024 15:15 EDT Office Visit [facility] Surgical Oncology - [facility] [address] [place] 018961 Adolfo Carreno MD 111 [facility], Level 2 [place] [phone] 04/05/2024 9:30 EDT Telemedicine [facility] Palliative Care Services [address] [place], [place] 749711 Chichi Woods MD 111 [facility], [address] [phone] 04/11/2024 15:00 EDT Telemedicine [facility] Hematology & Oncology - [address] [phone] Alisson Carreon MD [address] [place] [address] 2 [place] [phone] 04/13/2024 13:30 EDT Appointment [facility] Hematology & Oncology - [address] [phone] 04/13/2024 14:00 EDT Appointment [facility] Hematology & Oncology [address] [id number] 04/16/2024 10:00 EST Telemedicine [facility] - [facility] Palliative Care Services [address] [place] [address] Chichi Woods MD [address] [place] [address] [phone] 04/24/2024 9:00 EST Appointment [facility] Radiology CT Outpatient - [address] [id number] 04/24/2024 11:00 EST Appointment [facility] Breast Imaging - [address] 478811 04/27/2024 12:00 EST Appointment [facility] Hematology & Oncology - [address] 054021 05/02/2024 15:00 EST Telemedicine [facility] Hematology & Oncology [address] 559261 Alisson Carreon MD [address] [place] [address], [facility] 2 [place] [phone] 05/04/2024 10:15 EST Ancillary Procedure [facility] Cardiology - [address] [place] [address] 05/04/2024 11:30 EST Appointment [facility] Hematology & Oncology - [address] [address] 05/04/2024 12:00 EST Appointment [facility] Hematology & Oncology [address] 545561 06/12/2024 13:00 EST Appointment [facility] Radiology CT - [address] 716711 documented as of this encounter Visit Diagnoses Not on filedocumented in this encounter Care Teams Any Commodity Buyer Relationship Specialty Start Date End Date Linda Blancas MD [facility] [address] [place] [address] PCP - General 01/06/11 Adolfo Carreno MD [address] [place] [address] 2 [place] [phone] General Surgery 04/26/19 Augustina Colin MD PhD [address] [place] [address] 2 [place] [phone] Medical Oncology 04/26/19 documented as of this encounter
--- OUTSIDE RECORDS SUMMARY | 2024-03-20 14:43 | XMS_ITS | Encounter Summary ---
Author Organization [facility] Address [address] [place] [address] Care Team Providers Care Screen Roller Name Role Phone Linda Blancas MD Primary Care Provider [phone] Adolfo Carreno MD Unavailable [phone] Augustina Colin MD PhD Unavailable Unavailable Reason for Visit * Reason Onset Date Comments Social Work 08/04/2023 Copay assistance Encounter Details Date Type Department Care Team (Late st Contact Info) Description 08/04/2023 Telephone [facility] Cancer Center Hematology & Oncology - [facility] [address] [place], [place] [phone] Trinh Posey Social Work (Copay assistance) Social [...] * Telephone Encounter - Trinh Posey - 08/04/2023 1235 EST Pt sent me a copy of her insurance cards for the [employer] application. Maria Fernanda Stevens RN has the provider section of the application and will have Dr. Colin sign. When ready, I will fax application. Called [employer] to clarify a question on the application. They no longer offer rapid start so we should indicate General Prescription I updated Kaylah Addendum- Application completed and faxed to [employer]ue #[phone] documented in this encounter Plan of Treatment Upcoming Encounters Date Type Department Care Team (Late st Contact Info) Description 04/02/2024 10:30 EDT Appointment [facility] Interventional Radiology Unit [address] [place] [address] [phone] 04/02/2024 15:15 EDT Office Visit [facility] Surgical Oncology - [address] [phone] Adolfo Carreno MD 111 [facility], Level 2 [place] [phone] 04/05/2024 9:30 EDT Telemedicine [facility] - [facility] Palliative Care Services [address] [place], [place] [phone] Chichi Woods MD 111 [facility], [address] [phone] 04/11/2024 15:00 EDT Telemedicine [facility] Hematology & Oncology - [address] [phone] Alisson Carreon MD [address] [place] [address], [facility] 2 [place] [phone] 04/13/2024 13:30 EDT Appointment [facility] Hematology & Oncology - [address] 038321 04/13/2024 14:00 EDT Appointment [facility] Hematology & Oncology - [address] 067541 04/16/2024 10:00 EST Telemedicine [facility] - [facility] Palliative Care Services [address] [place] [address] Chichi Woods MD [address] [place] [address] [phone] 04/24/2024 9:00 EST Appointment [facility] Radiology CT Outpatient - [address] 377511 04/24/2024 11:00 EST Appointment [facility] Breast Imaging - [facility] [address] 068771 04/27/2024 12:00 EST Appointment [facility] Hematology & Oncology - [address] 196851 05/02/2024 15:00 EST Telemedicine [facility] Hematology & Oncology - [address] 684661 Alisson Carreon MD [address] [place] [address], [facility] 2 [place] [phone] 05/04/2024 10:15 EST Ancillary Procedure [facility] Cardiology - [address] [place] [address] 05/04/2024 11:30 EST Appointment [facility] Hematology & Oncology [address] [address] 05/04/2024 12:00 EST Appointment [facility] Hematology & Oncology [address] 754031 06/12/2024 13:00 EST Appointment [facility] Radiology CT - [address] 389831 documented as of this encounter Visit Diagnoses Not on filedocumented in this encounter Care Teams Screen Roller Relationship Specialty Start Date End Date Linda Blancas MD [facility] [address] [place] [address] PCP - General 01/06/11 Adolfo Carreno MD [address] [place] [address] [phone] General Surgery 04/26/19 Augustina Colin MD PhD [address] [place] [phone] Medical Oncology 04/26/19 documented as of this encounter
--- OUTSIDE RECORDS SUMMARY | 2024-03-20 14:43 | XMS_ITS | Encounter Summary ---
Author Organization [facility] Address [address] [place] [address] Care Team Providers Care Barley Steeper Name Role Phone Linda Blancas MD Primary Care Provider [phone] Adolfo Carreno MD Unavailable [phone] Augustina Colin MD PhD Unavailable Unavailable Encounter Details Date Type Department Care Team (Late st Contact Info) Description 08/08/2023 Orders Only [facility] Center Hematology & Oncology - [facility] [address] [place] [address] Augustina Colin, PhD Social History Tobacco Use [...] 04/02/2024 10:30 EDT Appointment [facility] Interventional Radiology Unit [address] [place] [address] [id number] 04/02/2024 15:15 EDT Office Visit [facility] Surgical Oncology - [address] 320151 Adolfo Carreno MD [address] [place] [address] [phone] 04/05/2024 9:30 EDT Telemedicine [facility] - [facility] Palliative Care Services [address] [place] [address] [phone] Chichi Woods MD [address] [place] [address] [phone] 04/11/2024 15:00 EDT Telemedicine [facility] Hematology & Oncology [address] 172971 Alisson Carreon MD [address] [place] [address] [phone] 04/13/2024 13:30 EDT Appointment [facility] Hematology & Oncology [address] [id number] 04/13/2024 14:00 EDT Appointment [facility] Hematology & Oncology [address] 273321 04/16/2024 10:00 EST Telemedicine [facility] - [facility] Palliative Care Services [address] [place] [address] 105531 Chichi Woods MD [address] [place] [address], [address] [phone] 04/24/2024 9:00 EST Appointment [facility] Radiology CT Outpatient - [address] 072361 04/24/2024 11:00 EST Appointment [facility] Breast Imaging - [facility] S [place] [address] [place], [place] 604751 04/27/2024 12:00 EST Appointment [facility] Hematology & Oncology - [address] 987671 05/02/2024 15:00 EST Telemedicine [facility] Hematology & Oncology - [address] [address] Alisson Carreon MD [address] [place] [address], [facility], Level 2 [place] [phone] 05/04/2024 10:15 EST Ancillary Procedure [facility] Cardiology - [address] [place], [place] [phone] 05/04/2024 11:30 EST Appointment [facility] Hematology & Oncology - [address] 257921 05/04/2024 12:00 EST Appointment [facility] Hematology & Oncology [address] [phone] 06/12/2024 13:00 EST Appointment [facility] Center Radiology CT - [address] [phone] documented as of this encounter Visit Diagnoses Not on filedocumented in this encounter Additional Health Concerns Infection Onset Date Last Indicated Resolved Time R/O COVID-19 12/12/2023 12/12/2023 12/12/2023 15:3 5 EDT R/O COVID-19 01/08/2024 01/08/2024 01/08/2024 18:2 6 EDT R/O COVID-19 01/16/2024 01/16/2024 01/16/2024 17:5 0 EDT documented as of this encounter Care Teams Barley Steeper Relationship Specialty Start Date End Date Linda Blancas MD [facility] [address] [place] [address] PCP - General 01/06/11 Adolfo Carreno MD [address] [place] [address] 2 [place] [phone] General Surgery 04/26/19 Augustina Colin MD PhD [address] [place] [address], [facility] 2 [place] [phone] Medical Oncology 04/26/19 documented as of this encounter
--- OUTSIDE RECORDS SUMMARY | 2024-03-20 14:43 | XMS_ITS | Encounter Summary ---
Author Organization [facility] Address [address] [place] [address] Care Team Providers Care Mixed Crop Farmer Name Role Phone Linda Blancas MD Primary Care Provider [phone] Adolfo Carreno MD Unavailable [phone] Augustina Colin MD PhD Unavailable Unavailable Reason for Visit * Reason Onset Date Comments Social Work 08/11/2023 Copay assistance Encounter Details Date Type Department Care Team (Late st Contact Info) Description 08/11/2023 Telephone [facility] Cancer Center Hematology & Oncology - [facility] [address] [place], [place] [phone] Trinh Posey Social Work (Copay assistance) Social [...] * Telephone Encounter - Trinh Posey - 08/11/2023 0839 EST Mague Keane sent a fax stating she has been approved for free drug ([employer]ser[facility]) and they have notified the pt and will coordinate shipping of this medication to her. I have updated Dr. Colin and RN documented in this encounter Plan of Treatment Upcoming Encounters Date Type Department Care Team (Late st Contact Info) Description 04/02/2024 10:30 EDT Appointment [facility] Interventional Radiology Unit [address] [place] [address] [phone] 04/02/2024 15:15 EDT Office Visit [facility] Surgical Oncology - [address] [phone] Adolfo Carreno MD [address] [place] [address], [facility] 2 [place] [phone] 04/05/2024 9:30 EDT Telemedicine [facility] - [facility] Palliative Care Services [address] [place] [address] 018941 Chichi Woods MD [address] [place] [address] [phone] 04/11/2024 15:00 EDT Telemedicine [facility] Hematology & Oncology - [address] [phone] Alisson Carreon MD [address] [place] [address], Level [address] [place] [phone] 04/13/2024 13:30 EDT Appointment [facility] Hematology & Oncology [address] 020431 04/13/2024 14:00 EDT Appointment [facility] Hematology & Oncology - [address] [phone] 04/16/2024 10:00 EST Telemedicine [facility] - [facility] Palliative Care Services [address] [place] [address] [phone] Chichi Woods MD [address] [place] [address], [address] [phone] 04/24/2024 9:00 EST Appointment [facility] Radiology CT Outpatient - [address] 247771 04/24/2024 11:00 EST Appointment [facility] Breast Imaging - [facility] S [address] [phone] 04/27/2024 12:00 EST Appointment [facility] Hematology & Oncology [address] 535361 05/02/2024 15:00 EST Telemedicine [facility] Hematology & Oncology - [address] 830611 Alisson Carreon MD [address] [place] [address], Level [address] [place] [phone] 05/04/2024 10:15 EST Ancillary Procedure [facility] Cardiology - [place] [place], [place] [phone] 05/04/2024 11:30 EST Appointment [facility] Hematology & Oncology - [address] [address] 05/04/2024 12:00 EST Appointment [facility] Cancer Center Hematology & Oncology - [address] [address] 06/12/2024 13:00 EST [facility]ointment [facility] Radiology CT - [address] [address] documented as of this encounter Visit Diagnoses Not on filedocumented in this encounter Care Teams Mixed Crop Farmer Relationship Specialty Start Date End Date Linda Blancas MD [facility] [address] [place] [address] PCP - General 01/06/11 Adolfo Carreno MD [address] [place] [address], [facility] 2 [place] [phone] General Surgery 04/26/19 Augustina Colin MD PhD [address] [place] [address], [facility] 2 [place] [phone] Medical Oncology 04/26/19 documented as of this encounter
--- OUTSIDE RECORDS SUMMARY | 2024-03-20 14:43 | XMS_ITS | Encounter Summary ---
Author Organization [facility] Address [address] [place] [address] Care Team Providers Care Finishing Tunnel Operator Name Role Phone Linda Blancas MD Primary Care Provider [phone] Adolfo Carreno MD Unavailable [phone] Augustina Colin MD PhD Unavailable Unavailable Encounter Details Date Type Department Care Team (Late st Contact Info) Description 07/19/2023 Orders Only [facility] Cancer Center Hematology & Oncology - [facility] [address] [place] [address] Lety Ferrara, RN Osteopenia of necks of both femurs [...] of this encounter Progress Notes * Lety Ferrara, RN - 07/19/2023 3455 EST New scheduling request added documented in this encounter Plan of Treatment Upcoming Encounters Date Type Department Care Team (Late st Contact Info) Description 04/02/2024 10:30 EDT Appointment [facility] Interventional Radiology Unit [address] [place] [address] [phone] 04/02/2024 15:15 EDT Office Visit [facility] Surgical Oncology - [address] [phone] Adolfo Carreno MD [address] [place] [address] 2 [place] [phone] 04/05/2024 9:30 EDT Telemedicine [facility] - [facility] Palliative Care Services [address] [place], [place] [phone] Chichi Woods MD [address] [place] [address] [phone] 04/11/2024 15:00 EDT Telemedicine [facility] Hematology & Oncology - [address] [phone] Alisson Carreon MD [address] [place] [address] 2 [place] [phone] 04/13/2024 13:30 EDT Appointment [facility] Hematology & Oncology - [address] 159951 04/13/2024 14:00 EDT Appointment [facility] Hematology & Oncology [address] 168731 04/16/2024 10:00 EST Telemedicine [facility] - [facility] Palliative Care Services [address] [place] [address] 649351 Chichi Woods MD [address] [place] [address], [address] [phone] 04/24/2024 9:00 EST Appointment [facility] Radiology CT Outpatient - [address] 752111 04/24/2024 11:00 EST Appointment [facility] Breast Imaging - [facility] S [place] 1 [place], [place] 191871 04/27/2024 12:00 EST Appointment [facility] Hematology & Oncology - [address] 807251 05/02/2024 15:00 EST Telemedicine [facility] Hematology & Oncology [address] 815391 Alisson Carreon MD [address] [place] [address], [facility], Level [address] [place] [phone] 05/04/2024 10:15 EST Ancillary Procedure [facility] Cardiology - [place] [address] 05/04/2024 11:30 EST Appointment [facility] Hematology & Oncology [address] 240131 05/04/2024 12:00 EST Appointment [facility] Hematology & Oncology - [address] 304861 06/12/2024 13:00 EST Appointment [facility] Radiology CT - [facility] [address] [place], [place] 791251 documented as of this encounter Visit Diagnoses Diagnosis Osteopenia of necks of both femurs- Primary documented in this encounter Orders Appointment Requests Count Last Ordered Date Fi rst Ordered Date ONCBCN INFUSION APPOINTMENT REQUEST 2 11/0708/15/2023 documented in this encounter Care Teams Finishing Tunnel Operator Relationship Specialty Start Date End Date Linda Blancas MD [facility] [address] [place] [address] PCP - General 01/06/11 Adolfo Carreno MD [address] [place] [address], [facility] 2 [place] [phone] General Surgery 04/26/19 Augustina Colin MD PhD [address] [place] [address] 2 [place] [phone] Medical Oncology 04/26/19 documented as of this encounter
--- OUTSIDE RECORDS SUMMARY | 2024-03-20 14:43 | XMS_ITS | Encounter Summary ---
Author Organization [facility] Address [address] [place] [address] Care Team Providers Care Felled Seam Operator Name Role Phone Linda Blancas MD Primary Care Provider [phone] Adolfo Carreno MD Unavailable [phone] Augustina Colin MD PhD Unavailable Unavailable Encounter Details Date Type Department Care Team (Late st Contact Info) Description 07/05/2023 Documentation Visit [facility] Cancer Center Hematology & Oncology - [place] [address] [place] [address] Kaylah Stevens RN Social History Tobacco Use [...] Progress Notes * Kaylah Stevens, RN - 07/05/2023 1718 EST HER2 order request faxed to surg path. documented in this encounter Plan of Treatment Upcoming Encounters Date Type Department Care Team (Late st Contact Info) Description 04/02/2024 10:30 EDT Appointment [facility] Interventional Radiology Unit [address] [place] [address] [phone] 04/02/2024 15:15 EDT Office Visit [facility] Surgical Oncology - [address] [phone] Adolfo Carreno MD [address] [place] [address], [facility] 2 [place] [phone] 04/05/2024 9:30 EDT Telemedicine [facility] - [facility] Palliative Care Services [address] [place], [place] [phone] Chichi Woods MD [address] [place] [address] [phone] 04/11/2024 15:00 EDT Telemedicine [facility] Hematology & Oncology - [address] [phone] Alisson Carreon MD [address] [place] [address], [facility] 2 [place] [phone] 04/13/2024 13:30 EDT Appointment [facility] Hematology & Oncology - [address] 179021 04/13/2024 14:00 EDT Appointment [facility] Hematology & Oncology [address] 196541 04/16/2024 10:00 EST Telemedicine [facility] - [facility] Palliative Care Services [address] [place] [address] 813501 Chichi Woods MD [address] [place] [address], [address] [phone] 04/24/2024 9:00 EST Appointment [facility] Radiology CT Outpatient - [address] [phone] 04/24/2024 11:00 EST Appointment [facility] Breast Imaging - [facility] S [place] 1 [place], [place] 876851 04/27/2024 12:00 EST Appointment [facility] Hematology & Oncology - [address] [id number] 05/02/2024 15:00 EST Telemedicine [facility] Hematology & Oncology [address] 259921 Alisson Carreon MD [address] [place] [address], [facility], Level [address] [place] [phone] 05/04/2024 10:15 EST Ancillary Procedure [facility] Cardiology [place] [address] 05/04/2024 11:30 EST Appointment [facility] Hematology & Oncology [address] 128441 05/04/2024 12:00 EST Appointment [facility] Hematology & Oncology - [address] 108641 06/12/2024 13:00 [facility] Radiology CT - [facility] [address] [place], [place] 526901 documented as of this encounter Visit Diagnoses Not on filedocumented in this encounter Care Teams Felled Seam Operator Relationship Specialty Start Date End Date Linda Blancas MD [facility] [address] [place] [address] PCP - General 01/06/11 Adolfo Carreno MD [address] [place] [address], [facility] 2 [place] [phone] General Surgery 04/26/19 Augustina Colin MD PhD [address] [place] [address], [facility] 2 [place] [phone] Medical Oncology 04/26/19 documented as of this encounter
--- OUTSIDE RECORDS SUMMARY | 2024-03-20 14:43 | XMS_ITS | Encounter Summary ---
Author Organization [facility] Address [address] [place] [address] Care Team Providers Care Phlebotomist Supervisor/Instructor Name Role Phone Linda Blancas MD Primary Care Provider [phone] Adolfo Carreno MD Unavailable [phone] Augustina Colin MD PhD Unavailable Unavailable Reason for Visit * Reason Onset Date Comments Appointment Related 07/07/2023 Encounter Details Date Type Department Care Team (Late st Contact Info) Description 07/07/2023 Telephone [facility] Cancer Center Hematology & Oncology - [facility] [address] [place], [place] 768491 Augustina Colin, PhD Appointment Related Social History [...] encounter Miscellaneous Notes * Telephone Encounter - aSndhya Estrada - 07/07/2023 1517 EST Called patient regarding lab appt request. Scheduled lab draw @ 1665, prior to FUR w/KD. LMOM. Left PAC# * Telephone Encounter - Mony Rawls - 07/07/2023 1416 EST Patient called to schedule labs before her appointment on 07/12. Please call back to discuss. documented in this encounter Plan of Treatment Upcoming Encounters Date Type Department Care Team (Late st Contact Info) Description 04/02/2024 10:30 EDT Appointment [facility] Interventional Radiology Unit [address] [place], [place] 490681 04/02/2024 15:15 EDT Office Visit [facility] Surgical Oncology - [facility] [address] [place], [place] [phone] Adolfo Carreno MD 111 [facility], Level 2 [place] [phone] 04/05/2024 9:[address] [facility] - [facility] Palliative Care Services [address] [place], [place] [phone] Chichi Woods MD 111 [facility], [address] [phone] 04/11/2024 15:00 EDT Telemedicine [facility] Hematology & Oncology - [address] 133131 Alisson Carreon MD [address] [place] [address], [facility] 2 [place] [phone] 04/13/2024 13:30 EDT Appointment [facility] Hematology & Oncology - [address] 346881 04/13/2024 14:00 EDT Appointment [facility] Hematology & Oncology - [address] 798871 04/16/2024 10:[address] [facility] - [facility] Palliative Care Services [address] [place] [address] 054701 Chichi Woods MD [address] [place] [address], [address] [phone] 04/24/2024 9:00 EST Appointment [facility] Radiology CT Outpatient - [address] 622291 04/24/2024 11:00 EST Appointment [facility] Breast Imaging - [facility] S [address] 671221 04/27/2024 12:00 EST Appointment [facility] Hematology & Oncology - [address] 623941 05/02/2024 15:00 EST Telemedicine [facility] Hematology & Oncology - [address] 548311 Alisson Carreon MD [address] [place] [address], [facility] [place] 2 [place] [phone] 05/04/2024 10:15 EST Ancillary Procedure [facility] Cardiology - [address] [place] [address] 05/04/2024 11:30 EST Appointment [facility] Hematology & Oncology [address] [address] 05/04/2024 12:00 EST Appointment [facility] Hematology & Oncology [address] 973841 06/12/2024 13:00 EST Appointment [facility] Radiology CT - [address] 792531 documented as of this encounter Visit Diagnoses Not on filedocumented in this encounter Care Teams Phlebotomist Supervisor/Instructor Relationship Specialty Start Date End Date Linda Blancas MD [facility] [address] [place] [address] PCP - General 01/06/11 Adolfo Carreno MD [address] [place] [address] [phone] General Surgery 04/26/19 Augustina Colin MD PhD [address] [place] [phone] Medical Oncology 04/26/19 documented as of this encounter
--- OUTSIDE RECORDS SUMMARY | 2024-03-20 14:43 | XMS_ITS | Encounter Summary ---
Author Organization [facility] Address [address] [place] [address] Care Team Providers Care Web Production Designer Name Role Phone Linda Blancas MD Primary Care Provider [phone] Adolfo Carreno MD Unavailable [phone] Augustina Colin MD PhD Unavailable Unavailable Reason for Visit * Reason Onset Date Comments Appointment Related 08/05/2023 Encounter Details Date Type Department Care Team (Late st Contact Info) Description 08/05/[address] [facility] Cancer Center Hematology & Oncology - Main [place] [address] [place], [place] 994861 Augustina Colin, PhD Appointment Related Social History [...] * Telephone Encounter - Sandhya Estrada - 08/05/2023 1146 EST Called patient regarding 4wk FUR w/Zometa infusion. Infusion was already scheduled on 08/14. Scheduled PV w/KD @ 1300. Called Shep 4 to move 1230 infusion to after PV. Infusion moved to 1345. Patient confirmed 08/14 appt schedule documented in this encounter Plan of Treatment Upcoming Encounters Date Type Department Care Team (Late st Contact Info) Description 04/02/2024 10:30 EDT Appointment [facility] Interventional Radiology Unit [address] [place] [address] [phone] 04/02/2024 15:15 EDT Office Visit [facility] Surgical Oncology - [address] [phone] Adolfo Carreno MD [address] [place] [address], [facility] 2 [place] [phone] 04/05/2024 9:30 EDT Telemedicine [facility] - [facility] Palliative Care Services [address] [place], [place] 881761 Chichi Woods MD [address] [place] [address], [place] [address] [place] [phone] 04/11/2024 15:00 EDT Telemedicine [facility] Hematology & Oncology - [address] [phone] Alisson Carreon MD [address] [place] [address], Level [address] [place] [phone] 04/13/2024 13:30 EDT Appointment [facility] Hematology & Oncology [address] 686851 04/13/2024 14:00 EDT Appointment [facility] Hematology & Oncology - [address] [phone] 04/16/2024 10:00 EST Telemedicine [facility] Palliative Care Services [address] [place] [address] [phone] Chichi Woods MD [address] [place] [address], [place] [address] [place] [address] [phone] 04/24/2024 9:00 EST Appointment [facility] Radiology CT Outpatient - [address] [id number] 04/24/2024 11:00 EST Appointment [facility] Breast Imaging - [facility] S [address] 111381 04/27/2024 12:00 EST Appointment [facility] Hematology & Oncology - [address] 031731 05/02/2024 15:00 EST Telemedicine [facility] Hematology & Oncology - [address] [phone] Alisson Carreon MD [address] [place] [address], [address] [place] [phone] 05/04/2024 10:15 EST Ancillary Procedure [facility] Cardiology - [address] [place], [place] [phone] 05/04/2024 11:30 EST Appointment [facility] Hematology & Oncology - [address] [address] 05/04/2024 12:[address] [facility] Cancer [place] Hematology & Oncology [address] [address] 06/12/2024 13:00 EST Appointment [facility] Radiology CT - [address] [address] documented as of this encounter Visit Diagnoses Not on filedocumented in this encounter Care Teams Web Production Designer Relationship Specialty Start Date End Date Linda Blancas MD [facility] [address] [place] [address] PCP - General 01/06/11 Adolfo Carreno MD [address] [place] [address] 2 [place] [phone] General Surgery 04/26/19 Augustina Colin MD PhD [address] [place] [address] 2 [place] [address] Medical Oncology 04/26/19 documented as of this encounter
--- OUTSIDE RECORDS SUMMARY | 2024-03-20 14:43 | XMS_ITS | Encounter Summary ---
Author Organization [facility] Address [address] [place] [address] Care Team Providers Care In Store Marketer Name Role Phone Linda Blancas MD Primary Care Provider [phone] Adolfo Carreno MD Unavailable [phone] Augustina Colin MD PhD Unavailable Unavailable Encounter Details Date Type Department Care Team (Late st Contact Info) Description 07/18/2023 Orders Only [facility] Cancer Center Hematology & Oncology - [facility] [address] [place] [address] Lety Ferrara, RN Social History Tobacco Use Types Packs/Day [...] Contact Info) Description 04/02/2024 10:30 EDT Appointment [facility] Interventional Radiology Unit [address] [place] [address] [id number] 04/02/2024 15:15 EDT Office Visit [facility] Surgical Oncology - [address] [phone] Adolfo Carreno MD [address] [place] [address] [phone] 04/05/2024 9:30 EDT Telemedicine [facility] - [facility] Palliative Care Services [address] [place] [address] [phone] Chichi Woods MD [address] [place] [address] [phone] 04/11/2024 15:00 EDT Telemedicine [facility] Hematology & Oncology [address] [phone] Alisson Carreon MD [address] [place] [address] [phone] 04/13/2024 13:30 EDT Appointment [facility] Hematology & Oncology [address] [phone] 04/13/2024 14:00 EDT Appointment [facility] Hematology & Oncology [address] [phone] 04/16/2024 10:00 EST Telemedicine [facility] - [facility] Palliative Care Services [address] [place] [address] [phone] Chichi Woods MD [address] [place] [address], [address] [phone] 04/24/2024 9:00 EST Appointment [facility] Radiology CT Outpatient - [address] [phone] 04/24/2024 11:00 EST Appointment [facility] Breast Imaging - [facility] [address] [place], [place] [address] 04/27/2024 12:00 EST Appointment [facility] Hematology & Oncology - [address] [phone] 05/02/2024 15:00 EST Telemedicine [facility] Hematology & Oncology - [address] [phone] Alisson Carreon MD [address] [place] [address], Level [address] [place] [phone] 05/04/2024 10:15 EST Ancillary Procedure [facility] Cardiology - [address] [place], [place] [phone] 05/04/2024 11:30 EST Appointment [facility] Hematology & Oncology - [address] [phone] 05/04/2024 12:00 EST Appointment [facility] Hematology & Oncology - [address] [phone] 06/12/2024 13:00 EST Appointment [facility] Radiology CT - [address] [phone] documented as of this encounter Visit Diagnoses Not on filedocumented in this encounter Additional Health Concerns Infection Onset Date Last Indicated Resolved Time R/O COVID-19 12/12/2023 12/12/2023 12/12/2023 15:3 5 EDT R/O COVID-19 01/08/2024 01/08/2024 01/08/2024 18:2 6 EDT R/O COVID-19 01/16/2024 01/16/2024 01/16/2024 17:5 0 EDT documented as of this encounter Care Teams In Store Marketer Relationship Specialty Start Date End Date Linda Blancas MD [facility] [address] [place] [address] PCP - General 01/06/11 Adolfo Carreno MD [address] [place] [address] 2 [place] [phone] General Surgery 04/26/19 Augustina Colin MD PhD [address] [place] [address] 2 [place] [phone] Medical Oncology 04/26/19 documented as of this encounter
--- OUTSIDE RECORDS SUMMARY | 2024-03-20 14:43 | XMS_ITS | Encounter Summary ---
Author Organization [facility] Address [address] [place] [address] Care Team Providers Care Civil Division Deputy Sheriff Name Role Phone Linda Blancas MD Primary Care Provider [phone] Adolfo Carreno MD Unavailable [phone] Augustina Colin MD PhD Unavailable Unavailable Encounter Details Date Type Department Care Team (Latest Contact Info) Description 07/12/2023 12:45 EST Phlebotomy Only [facility] Cancer Center Hematology & Oncology - [facility] [address] [place] [address] Blood Doctor, [facility] Hem Onc Primary malignant neoplasm of breast with metastasis [...] as of this encounter Progress Notes * Winsome Hansen MA - 07/12/2023 1245 EST Venipuncture performed for Dittus Per orders of Dittus Number of attempts 1 L AC I was supervised by Kaushal who was present and immediately available in the office suite. WINSOME HANSEN MA 07/12/2023 12:46 documented in this encounter Plan of Treatment Upcoming Encounters Date Type Department Care Team (Late st Contact Info) Description 04/02/2024 10:30 EDT Appointment [facility] Interventional Radiology Unit [address] [place] [address] [phone] 04/02/2024 15:15 EDT Office Visit [facility] Surgical Oncology - [address] [phone] Adolfo Carreno MD 111 [facility], Level [address] [place] [phone] 04/05/2024 9:30 EDT Telemedicine [facility] - [facility] Palliative Care Services [address], [place] [phone] Chichi Woods MD 111 [facility], [address] [phone] 04/11/2024 15:00 EDT Telemedicine [facility] Hematology & Oncology - [facility] [address], [place] [address] Alisson Carreon MD [address] [place] [address], [facility] [address] [place] [phone] 04/13/2024 13:30 EDT Appointment [facility] Hematology & Oncology - [address] [phone] 04/13/2024 14:00 EDT Appointment [facility] Hematology & Oncology - [address] [phone] 04/16/2024 10:00 EST Telemedicine [facility] - [facility] Palliative Care Services [address] [place] [address] [phone] Chichi Woods MD [address] [place] [address], [address] [phone] 04/24/2024 9:00 EST Appointment [facility] Radiology CT Outpatient - [address] [id number] 04/24/2024 11:00 EST Appointment [facility] Breast Imaging - [facility] [address] [id number] 04/27/2024 12:00 EST Appointment [facility] Hematology & Oncology - [address] [phone] 05/02/2024 15:00 EST Telemedicine [facility] Hematology & Oncology - [address] [phone] Alisson Carreon MD [address] [place] [address], [facility] [address] [place] [phone] 05/04/2024 10:15 EST Ancillary Procedure [facility] Cardiology - [address] [place], [place] [phone] 05/04/2024 11:30 EST Appointment [facility] Hematology & Oncology - [facility] [address] [place] [address] 05/04/2024 12:00 EST Appointment [facility] Hematology & Oncology - [facility] [address] [place] [address] 06/12/2024 13:00 EST Appointment [facility] Radiology CT - [address] [address] documented as of this encounter Procedures Procedure Name Priority Date/Time Associated Diagnosis Comments CA 27.29 STAT 07/12/2023 12:52 EST Malignant neoplasm of right female breast, unspecified estrogen receptor status, unspecified site of breast (HCC-CMS) COMPLETE BLOOD COUNT AND DIFFERENTIAL STAT 07/12/2023 12:52 EST Primary malignant neoplasm of breast with metastasis (HCC-CMS) COMPREHENSIVE METABOLIC PANEL (CMP) STAT 07/12/2023 12:52 EST Primary malignant neoplasm of breast with metastasis (HCC-CMS) documented in this encounter Results * (ABNORMAL) CA 27.29 (07/12/2023 12:52 EST) CA 27.29 267.0(H) <38.0 U/mL 07/13/2023 8:50 EST [facility] Comment: NOTE: Serum CA 27.29 concentration should not be interpreted as absolute evidence for the presence or absence of malignant disease. Assayed on Siemens ADVIA Centaur XPT using chemiluminescent technology. ??Values obtained by using different assay methods cannot be used interchangeably. Blood VENOUS BLOOD / Unknown Venipuncture / Unknown 07/12/2023 12:52 EST 07/12/2023 12:57 EST Augustina Colin MD PhD CHEMISTRY & BLOOD GA S ORDERABLES [facility] [address] [place] [address] * (ABNORMAL) COMPREHENSIVE METABOLIC PANEL (CMP) (07/12/2023 12:52 [facility]) Sodium 143 136 - 145 mmol/L 07/12/2023 13:15 [facility] Potassium 4.6 3.5 - 5.0 mmol/L 07/12/2023 13:15 [facility] Chloride 111(H) 96 - 110 mmol/L 07/12/2023 13:15 [facility] CO2 Total 28 22 - 32 mmol/L 07/12/2023 13:15 [facility] Glucose 77 70 - 99 mg/dl 07/12/2023 13:15 [facility] BUN 21 10 - 26 mg/dL 07/12/2023 13:15 [facility] Creatinine 0.60 0.52 - 1.04 mg/dL 07/12/2023 13:15 [facility] eGFR 102 >60 mL/min/1.7 3m2 07/12/2023 13:15 [facility] Total Protein 6.4 6.3 - 8.2 g/dL 07/12/2023 13:15 [facility] Albumin 3.6 3.4 - 4.9 g/dL 07/12/2023 13:15 [facility] Alkaline Phosphatase 165(H) 38 - 126 U/L 07/12/2023 13:15 [facility] AST 66(H) 15 - 46 U/L 07/12/2023 13:15 [facility] ALT 29 <35 U/L 07/12/2023 13:15 [facility] Bilirubin, Total 1.3 <1.4 mg/dL 07/12/19 13:15 [facility] Calcium 9.0 8.5 - 10.5 mg/dL 07/12/2023 13:15 [facility] Albumin/Globulin Ratio 1.3 1.0 - 2.5 07/12/2023 13:15 [facility] Anion Gap 4(L) 5 - 14 mmol/L 07/12/2023 13:15 [facility] Blood VENOUS BLOOD / Unknown Venipuncture / Unknown 07/12/2023 12:52 EST 07/12/2023 12:57 EST Augustina Colin MD PhD CHEMISTRY & BLOOD GA S ORDERABLES [facility] [address] [place] [address] * (ABNORMAL) COMPLETE BLOOD COUNT AND DIFFERENTIAL (07/12/2023 12:52 EST) WBC 5.44 4.00 - 12.40 K/cmm 07/12/2023 13:09 [facility] RBC 3.08(L) 3.86 - 5.04 M/cmm 07/12/2023 13:09 [facility] Hemoglobin 11.6 11.6 - 15.2 g/dL 07/12/2023 13:09 [facility] HCT 32.8(L) 34.9 - 44.4 % 07/12/2023 13:09 [facility] MCV 107(H) 81 - 98 fL 07/12/2023 13:09 [facility] MCH 37.7(H) 26.7 - 33.3 pg 07/12/2023 13:09 [facility] MCHC 35.4 32.1 - 35.9 g/dL 07/12/2023 13:09 [facility] RDW-CV 17.3(H) <14.7 % 07/12/2023 13:09 [facility] RDW-SD 66.1(H) <50.4 fl 07/12/2023 13:09 [facility] PLT 126(L) 141 - 377 K/cmm 07/12/2023 13:09 [facility] MPV 10.4 9.5 - 12.7 fL 07/12/2023 13:09 [facility] % Neutrophils 58.7 % 07/12/2023 13:09 [facility] % Lymphocytes 23.3 % 07/12/2023 13:09 [facility] % Monocytes 14.3 % 07/12/2023 13:09 [facility] % Eosinophils 2.6 % 07/12/2023 13:09 [facility] % Basophils 0.7 % 07/12/2023 13:09 [facility] % Immature Grans 0.4 % 07/12/19 13:09 [facility] Absolute Neutrophils 3.19 2.20 - 8.85 K/cmm 07/12/2023 13:09 [facility] Absolute Lymphocytes 1.27 1.09 - 3.30 K/cmm 07/12/2023 13:09 [facility] Absolute Monocytes 0.78 0.10 - 0.80 K/cmm 07/12/2023 13:09 [facility] Absolute Eosinophils 0.14 0.03 - 0.61 K/cmm 07/12/2023 13:09 [facility] ABS Basophils 0.04 0.01 - 0.11 K/cmm 07/12/2023 13:09 [facility] Absolute Immature Grans 0.02 0.00 - 0.06 K/cmm 07/12/2023 13:09 [facility] Type of Differential: Auto 07/12/2023 13:09 [facility] Blood VENOUS BLOOD / Unknown Venipuncture / Unknown 07/12/2023 12:52 EST 07/12/2023 12:57 EST Augustina Colin MD PhD PACKAGES & DNA PROBE ORDERABLES [facility] [address] [place] [address] documented in this encounter Visit Diagnoses Diagnosis Primary malignant neoplasm of breast with metastasis (HCC-CMS) Malignant neoplasm of right female breast, unspecified estrogen receptor status, unspecified site of breast (HCC-CMS) documented in this encounter Care Teams Civil Division Deputy Sheriff Relationship Specialty Start Date End Date Linda Blancas MD [facility] [address] [place] [address] PCP - General 01/06/11 Adolfo Carreno MD [address] [place] [address], [facility] [address] [place] [address] General Surgery 04/26/19 Augustina Colin MD PhD [address] [place] [address] [address] [place] [address] Medical Oncology 04/26/19 documented as of this encounter
--- OUTSIDE RECORDS SUMMARY | 2024-03-20 14:43 | XMS_ITS | Encounter Summary ---
Author Organization [facility] Address [address] [place] [id number] Care Team Providers Care Refinery Operator Hel[employer] Name Role Phone Linda Blancas MD Primary Care Provider [phone] Adolfo Carreno MD Unavailable [phone] Augustina Colin MD PhD Unavailable Unavailable Reason for Visit * Radiology Services (Routine/Next Available) - Authorization Not Required Specialty Diagnoses / Procedures Referred By Contac t Referred To Contact Nuclear Medicine Diagnoses Malignant neoplasm of right female breast, unspecified estrogen receptor status, unspecified site of breast ([facility]) Procedures NM BONE WHOLE BODY Augustina Colin MD PhD [facility] Referral ID Status Reason Start Date Expiration Date Visits Requested Visits Authorized [id number] Authorization Not Required 03/01/2023 1 2 Encounter Details Date Type Department Care Team (Latest Contact Info) Description 06/21/2023 12:03 EST - 06/21/2023 23:59 EST Hospital Encounter [facility] Radiology Nuclear Medicine and PET - [address] [address] Discharge Disposition: Home or Self Care Social [...] estrogen receptor status, unspecified site of breast ([facility]) Take 3 Tablets by mouth every 12 hours. one week on, one week off 84 Tablet 3 03/28/2023 09/22/2023 gabapentin (NEURONTIN) 100 mg capsule Take 2 Caps by mouth 2 times daily. 360 Cap 3 08/16/2012 12/14/2023 gabapentin (NEURONTIN) 600 mg tablet Take 1 Tablet by mouth every evening. 12/14/2023 ibuprofen (MOTRIN) 200 mg tablet Take 2 Tablets by mouth as needed. 12/07/2023 mv-mn/C/glutamin/lysin/h [id number] (A[place], ASCORBATE SODIUM, ORAL) Take by mouth as needed. 12/14/2023 ondansetron (ZOFRAN-ODT) 8 mg disintegrating tablet Take [...] Contact Info) Description 04/02/2024 10:30 EDT Appointment [facility] Interventional Radiology Unit [address] [place] [address] [phone] 04/02/2024 15:15 EDT Office Visit [facility] Surgical Oncology - [address] [address] Adolfo Carreno MD [address] [place] [address] [address] [phone] 04/05/2024 9:30 EDT Telemedicine [facility] - [facility] Palliative Care Services [address] [place] [address] [phone] Chichi Woods MD [address] [place] [phone] 04/11/2024 15:00 EDT Telemedicine [facility] Hematology & Oncology [address] [phone] Alisson Carreon MD [address] [place] [phone] 04/13/2024 13:30 EDT Appointment [facility] Hematology & Oncology [address] [phone] 04/13/2024 14:00 EDT Appointment [facility] Hematology & Oncology - [address] [id number] 04/16/2024 10:00 EST Telemedicine [facility] - [facility] Palliative Care Services [address] [place], [place] 269151 Chichi Woods MD [address] [facility], [address] [phone] 04/24/2024 9:00 EST Appointment [facility] Radiology CT Outpatient - [address] [address] 04/24/2024 11:00 EST Appointment [facility] Breast Imaging - [address] [id number] 04/27/2024 12:00 EST Appointment [facility] Hematology & Oncology - [address] [id number] 05/02/2024 15:00 EST Telemedicine [facility] Hematology & Oncology - [address] [phone] Alisson Carreon MD [address] [place] [address], Level [address] [place] [phone] 05/04/2024 10:15 EST Ancillary Procedure [facility] Cardiology - [address] [place] [address] 05/04/2024 11:30 EST Appointment [facility] Hematology & Oncology - [address] [id number] 05/04/2024 12:00 EST Appointment [facility] Hematology & Oncology - [address] [phone] 06/12/2024 13:00 EST Appointment [facility] Radiology CT - [address] [id number] documented as of this encounter Procedures Procedure Name Priority Date/Time Associated Diagnosis Comments NM BONE WHOLE BODY Routine 06/21/2023 16 :41 EST Malignant neoplasm of right female breast, unspecified estrogen receptor status, unspecified site of breast (HCC-CMS) documented in this encounter Results * NM BONE WHOLE BODY (06/21/2023 16:41 EST) Anatomical Region Laterality Modality Nuclear Medicine 06/21/2023 16:5 3 EST Impressions 06/21/2023 16:53 EST Interval increase in uptake within multiple regions of radiotracer uptake are consistent with slight worsening metastatic disease. No suspicious new focus of metastatic disease in the bones. I have personally reviewed the images and the above interpretation and agree with the findings. [id number] Narrative 06/21/2023 16:53 EST NM BONE WHOLE BODY ??06/21/2023 3:00 PM Signs and Symptoms: ??pt w/ metastatic breast cancer; Breast cancer, invasive, stage IV, pre-therapy or re-staging; pt w/ metastatic breast cancer;C50.911:Malignant neoplasm of right female breast, unspecified estrogen receptor status, unspecified site of breast (HCC-CMS) Comparison: X-ray chest 06/16/2023, CT chest with contrast 05/27/2023, bone scan 11/25/2022 Technique: Approximately two hours after the IV injection of 18 mCi Tc-99m MDP, anterior and posterior whole body bone images were obtained. Findings: Foci of increased radiotracer uptake within the upper and mid lower cervical spine are increased relative to prior imaging. Increased radiotracer uptake within the left second rib is unchanged from prior. Increased radiotracer uptake in the posterior right sixth rib corresponding to pathologic fracture on prior CT is unchanged from prior. Increased radiotracer uptake in the posterior left ninth rib and transverse process of T12 on the left corresponding to healing rib fracture and transverse process fracture are unchanged from prior. There is unchanged increased radiotracer uptake at the junctional zone L1-L2 corresponding to severe discogenic endplate disease. Focus of increased radiotracer uptake in the right ilium is larger relative to prior exam. Focus of increased tracer uptake in left ischium is increased compared to prior exam. There is increased radiotracer uptake within the left humeral head focus. Periarticular uptake in both feet, continues to be most pronounced at the first MTP on the right but now overall more pronounced. Interval increase in uptake in both knees, hands, elbows and AC joints related to arthrosis. Procedure Note Samuel Bowen MD - 06/21/2023 NM BONE WHOLE BODY 06/21/2023 3:00 PM Signs and Symptoms: pt w/ metastatic breast cancer; Breast cancer,invasive, stage IV, pre-therapy or re-staging; pt w/ metastatic breastcancer;C50.911:Malignant neoplasm of right female breast, unspecifiedestrogen receptor status, unspecified site of breast ([facility]) Comparison: X-ray chest 06/16/2023, CT chest with contrast 05/27/2023, bonescan 11/25/2022 Technique: Approximately two hours after the IV injection of 18 mCi Tc-99m MDP,anterior and posterior whole body bone images were obtained. Findings: Foci of increased radiotracer uptake within the upper and mid lowercervical spine are increased relative to prior imaging. Increased radiotracer uptake within the left second rib is unchanged fromprior. Increased radiotracer uptake in the posterior right sixth ribcorresponding to pathologic fracture on prior CT is unchanged fromprior. Increased radiotracer uptake in the posterior left ninth rib andtransverse process of T12 on the left corresponding to healing ribfracture and transverse process fracture are unchanged from prior. Thereis unchanged increased radiotracer uptake at the junctional zone L1-H2nyjdsfvxyzzan to severe discogenic endplate disease. Focus of increased radiotracer uptake in the right ilium is largerrelative to prior exam. Focus of increased tracer uptake in left ischiumis increased compared to prior exam. There is increased radiotracer uptake within the left humeral headfocus. Periarticular uptake in both feet, continues to be most pronounced at thefirst MTP on the right but now overall more pronounced. Interval increasein uptake in both knees, hands, elbows and AC joints related toarthrosis. IMPRESSION Interval increase in uptake within multiple regions of radiotracer uptakeare consistent with slight worsening metastatic disease. No suspicious newfocus of metastatic disease in the bones. I have personally reviewed the images and the above interpretation andagree with the findings. [id number] Augustina Colin MD PhD IMG NM ORDERABLES documented in this encounter Visit Diagnoses Not on filedocumented in this encounter Care Teams Refinery Operator Hel[employer] Relationship Specialty Start Date End Date Linda Blancas MD [address] [place] [address] [address] [place] [address] PCP - General 01/06/11 Adolfo Carreno MD [address] [place] [phone] General Surgery 04/26/19 Augustina Colin MD PhD [address] [place] [phone] Medical Oncology 04/26/19 documented as of this encounter
--- OUTSIDE RECORDS SUMMARY | 2024-03-20 14:43 | XMS_ITS | Encounter Summary ---
Author Organization [facility] Address [address] [place] [address] Care Team Providers Care Document Analyst Name Role Phone Linda Blancas MD Primary Care Provider [phone] Adolfo Carreno MD Unavailable [phone] Augustina Colin MD PhD Unavailable Unavailable Encounter Details Date Type Department Care Team (Late st Contact Info) Description 08/11/2023 Orders Only [facility] Hematology & Oncology - [facility] [address] [place] [address] Kaylah Stevens RN Primary malignant neoplasm of breast with metastasis (HCC-CMS) (Primary Dx); Encounter for long-term current [...] Progress Notes * Kaylah Stevens, RN - 08/11/2023 1308 EST Standing lab orders placed for per protocol per Dr. Colin. documented in this encounter Plan of Treatment Upcoming Encounters Date Type Department Care Team (Late st Contact Info) Description 04/02/2024 10:30 EDT Appointment [facility] Interventional Radiology Unit [address] [place] [address] [phone] 04/02/2024 15:15 EDT Office Visit [facility] Surgical Oncology - [address] [phone] Adolfo Carreno MD [address] [place] [address] [phone] 04/05/2024 9:30 EDT Telemedicine [facility] - [facility] Palliative Care Services [address] [place] [address] [phone] Chichi Woods MD [address] [place] [address], [address] [phone] 04/11/2024 15:00 EDT Telemedicine [facility] Hematology & Oncology - [address] [phone] Alisson Carreon MD [address] [place] [address] 2 [place] [phone] 04/13/2024 13:30 EDT Appointment [facility] Hematology & Oncology - [address] [phone] 04/13/2024 14:00 EDT Appointment [facility] Hematology & Oncology - [address] [phone] 04/16/2024 10:00 EST Telemedicine [facility] - [facility] Palliative Care Services [address] [place] [address] [phone] Chichi Woods MD [address] [place] [address] [phone] 04/24/2024 9:00 EST Appointment [facility] Rad[facility] Outpatient - [address] [id number] 04/24/2024 11:00 EST Appointment [facility] Breast Imaging - [facility] [address] [phone] 04/27/2024 12:00 EST Appointment [facility] Hematology & Oncology - [address] [phone] 05/02/2024 15:00 EST Telemedicine [facility] Hematology & Oncology - [address] [phone] Alisson Carreon MD [address] [place] [address], Level [address] [place] [phone] 05/04/2024 10:15 EST Ancillary Procedure [facility] Cardiology [place] [place] [address] 05/04/2024 11:30 EST Appointment [facility] Hematology & Oncology - [address] [phone] 05/04/2024 12:00 EST Appointment [facility] [place] Hematology & Oncology - [address] [phone] 06/12/2024 13:00 EST Appointment [facility] Radiology CT - [address] [id number] Scheduled Orders Name Type Priority Associated Diagnoses Orde r Schedule COMPLETE BLOOD COUNT AND DIFFERENTIAL Lab STAT Primary malignant neoplasm of breast with metastasis (HCC-CMS) 30 Occurrences starting 08/11/2023 until 08/10/2024, 12 completed COMPREHENSIVE METABOLIC PANEL (ONCOLOGY USE ONLY-INC MG) Lab STAT Primary malignant neoplasm of breast with metastasis (HCC-CMS) 30 Occurrences starting 08/11/2023 until 08/10/2024, 11 completed documented as of this encounter Results * (ABNORMAL) COMPLETE BLOOD COUNT AND DIFFERENTIAL (03/13/2024 7:41 EDT) WBC 9.68 4.00 - 12.40 K/cmm 03/13/2024 8:06 [facility] RBC 3.72(L) 3.86 - 5.04 M/cmm 03/13/2024 8:06 [facility] Hemoglobin 13.0 11.6 - 15.2 g/dL 03/13/2024 8:06 [facility] HCT 38.3 34.9 - 44.4 % 03/13/2024 8:06 [facility] MCV 103(H) 81 - 98 fL 03/13/2024 8:06 [facility] MCH 34.9(H) 26.7 - 33.3 pg 03/13/2024 8:06 [facility] MCHC 33.9 32.1 - 35.9 g/dL 03/13/2024 8:06 [facility] RDW-CV 14.9(H) <14.7 % 03/13/2024 8:06 [facility] RDW-SD 56.4(H) <50.4 fl 03/13/2024 8:06 [facility] PLT 228 141 - 377 K/cmm 03/13/2024 8:06 [facility] MPV 10.3 9.5 - 12.7 fL 03/13/2024 8:06 [facility] % Neutrophils 69.6 Not Indicated % 03/13/2024 8:06 [facility] % Lymphocytes 14.2 Not Indicated % 03/13/2024 8:06 [facility] % Monocytes 13.7 Not Indicated % 03/13/2024 8:06 [facility] % Eosinophils 1.3 Not Indicated % 03/13/2024 8:06 [facility] % Basophils 0.5 Not Indicated % 03/13/2024 8:06 [facility] % Immature Grans 0.7 Not Indicated % 03/13/2024 8:06 [facility] Absolute Neutrophils 6.73 2.20 - 8.85 K/cmm 03/13/2024 8:06 [facility] Absolute Lymphocytes 1.37 1.09 - 3.30 K/cmm 03/13/2024 8:06 [facility] Absolute Monocytes 1.33(H) 0.10 - 0.80 K/cmm 03/13/2024 8:06 [facility] Absolute Eosinophils 0.13 0.03 - 0.61 K/cmm 03/13/2024 8:06 [facility] ABS Basophils 0.05 0.01 - 0.11 K/cmm 03/13/2024 8:06 [facility] Absolute Immature Grans 0.07(H) 0.00 - 0.06 K/cmm 03/13/2024 8:06 [facility] Type of Differential: Auto 03/13/2024 8:06 [facility] Blood VENOUS BLOOD / Unknown Venipuncture / Unknown 03/13/2024 7:41 EDT 03/13/2024 7:52 EDT Augustina Colin MD PhD PACKAGES & DNA PROBE ORDERABLES [facility] [address] [place] [address] * (ABNORMAL) COMPREHENSIVE METABOLIC PANEL (ONCOLOGY USE ONLY-INC MG) (03/13/2024 7:38 EDT) Sodium 132(L) 136 - 145 mmol/L 03/13/2024 8:48 T [facility] Potassium 4.3 3.5 - 5.0 mmol/L 03/13/2024 8:48 [facility] Chloride 94(L) 96 - 110 mmol/L 03/13/2024 8:48 [facility] CO2 Total 26 22 - 32 mmol/L 03/13/2024 8:48 [facility] Glucose 135(H) 70 - 99 mg/dl 03/13/2024 8:48 [facility] BUN 24 10 - 26 mg/dL 03/13/2024 8:48 [facility] Creatinine 0.70 0.52 - 1.04 mg/dL 03/13/2024 8:48 [facility] eGFR 98 >60 mL/min/1.7 3m2 03/13/2024 8:48 [facility] Total Protein 7.5 6.3 - 8.2 g/dL 03/13/2024 8:48 [facility] Albumin 3.6 3.4 - 4.9 g/dL 03/13/2024 8:48 [facility] Alkaline Phosphatase 421(H) 38 - 126 U/L 03/13/2024 8:48 [facility] AST 61(H) 15 - 46 U/L 03/13/2024 8:48 [facility] ALT 36(H) <35 U/L 03/13/2024 8:48 [facility] Bilirubin, Total 1.3 <1.4 mg/dL 03/13/20 8:48 [facility] Calcium 10.1 8.5 - 10.5 mg/dL 03/13/2024 8:48 [facility] Magnesium 2.1 1.7 - 2.8 mg/dL 03/13/2024 8:48 [facility] Albumin/Globulin Ratio 0.9(L) 1.0 - 2.5 03/13/2024 8:48 [facility] Anion Gap 12 5 - 14 mmol/L 03/13/2024 8:48 [facility] Blood VENOUS BLOOD / Unknown Venipuncture / Unknown 03/13/2024 7:38 EDT 03/13/2024 7:52 EDT Augustina Colin MD PhD CHEMISTRY & BLOOD GA S ORDERABLES [facility] [address] [place] [address] * (ABNORMAL) COMPLETE BLOOD COUNT AND DIFFERENTIAL (03/13/2024 7:38 EDT) WBC 9.78 4.00 - 12.40 K/cmm 03/13/2024 8:07 [facility] RBC 3.73(L) 3.86 - 5.04 M/cmm 03/13/2024 8:07 [facility] Hemoglobin 13.0 11.6 - 15.2 g/dL 03/13/2024 8:07 [facility] HCT 38.1 34.9 - 44.4 % 03/13/2024 8:07 [facility] MCV 102(H) 81 - 98 fL 03/13/2024 8:07 [facility] MCH 34.9(H) 26.7 - 33.3 pg 03/13/2024 8:07 [facility] MCHC 34.1 32.1 - 35.9 g/dL 03/13/2024 8:07 [facility] RDW-CV 14.8(H) <14.7 % 03/13/2024 8:07 [facility] RDW-SD 56.2(H) <50.4 fl 03/13/2024 8:07 [facility] PLT 230 141 - 377 K/cmm 03/13/2024 8:07 [facility] MPV 10.1 9.5 - 12.7 fL 03/13/2024 8:07 [facility] % Neutrophils 70.1 Not Indicated % 03/13/2024 8:07 [facility] % Lymphocytes 13.9 Not Indicated % 03/13/2024 8:07 [facility] % Monocytes 14.0 Not Indicated % 03/13/2024 8:07 [facility] % Eosinophils 0.9 Not Indicated % 03/13/2024 8:07 [facility] % Basophils 0.4 Not Indicated % 03/13/2024 8:07 [facility] % Immature Grans 0.7 Not Indicated % 03/13/2024 8:07 [facility] Absolute Neutrophils 6.85 2.20 - 8.85 K/cmm 03/13/2024 8:07 [facility] Absolute Lymphocytes 1.36 1.09 - 3.30 K/cmm 03/13/2024 8:07 [facility] Absolute Monocytes 1.37(H) 0.10 - 0.80 K/cmm 03/13/2024 8:07 [facility] Absolute Eosinophils 0.09 0.03 - 0.61 K/cmm 03/13/2024 8:07 [facility] ABS Basophils 0.04 0.01 - 0.11 K/cmm 03/13/2024 8:07 [facility] Absolute Immature Grans 0.07(H) 0.00 - 0.06 K/cmm 03/13/2024 8:07 [facility] Type of Differential: Auto 03/13/2024 8:07 [facility] Blood VENOUS BLOOD / Unknown Venipuncture / Unknown 03/13/2024 7:38 EDT 03/13/2024 7:52 EDT Augustina Colin MD PhD PACKAGES & DNA PROBE ORDERABLES [facility] [address] [place] [address] * (ABNORMAL) COMPREHENSIVE METABOLIC PANEL (ONCOLOGY USE ONLY-INC MG) (02/07/2024 15:20 EDT) Sodium 132(L) 136 - 145 mmol/L 02/07/2024 15:55 [facility] Potassium 4.1 3.5 - 5.0 mmol/L 02/07/2024 15:55 [facility] Chloride 96 96 - 110 mmol/L 02/07/2024 15:55 [facility] CO2 Total 27 22 - 32 mmol/L 02/07/2024 15:55 [facility] Glucose 93 70 - 99 mg/dl 02/07/2024 15:55 [facility] BUN 18 10 - 26 mg/dL 02/07/2024 15:55 [facility] Creatinine 0.62 0.52 - 1.04 mg/dL 02/07/2024 15:55 [facility] eGFR 101 >60 mL/min/1.7 3m2 02/07/2024 15:55 [facility] Total Protein 6.1(L) 6.3 - 8.2 g/dL 02/07/2024 15:55 [facility] Albumin 2.8(L) 3.4 - 4.9 g/dL 02/07/2024 15:55 [facility] Alkaline Phosphatase 458(H) 38 - 126 U/L 02/07/2024 15:55 [facility] AST 44 15 - 46 U/L 02/07/2024 15:55 [facility] ALT 40(H) <35 U/L 02/07/2024 15:55 [facility] Bilirubin, Total 1.9(H) <1.4 mg/dL 02/07/20 24 15:55 [facility] Calcium 8.5 8.5 - 10.5 mg/dL 02/07/2024 15:55 EDT [facility] Magnesium 2.1 1.7 - 2.8 mg/dL 02/07/2024 15:55 [facility] Albumin/Globulin Ratio 0.8(L) 1.0 - 2.5 02/07/2024 15:55 EDT [facility] Anion Gap 9 5 - 14 mmol/L 02/07/2024 15:55 T [facility] Blood BLOOD SAMPLE TAKEN FROM CENTRAL LINE / Unknown Port / Unknown 02/07/2024 15:20 EDT 02/07/2024 15:28 EDT Augustina Colin MD PhD CHEMISTRY & BLOOD GA S ORDERABLES [facility] [address] [place] [id number] * (ABNORMAL) COMPLETE BLOOD COUNT AND DIFFERENTIAL (02/07/2024 15:20 EDT) WBC 8.88 4.00 - 12.40 K/cmm 02/07/2024 15:45 [facility] RBC 2.83(L) 3.86 - 5.04 M/cmm 02/07/2024 15:45 [facility] Hemoglobin 10.4(L) 11.6 - 15.2 g/dL 02/07/2024 15:45 [facility] HCT 31.1(L) 34.9 - 44.4 % 02/07/2024 15:45 [facility] MCV 110(H) 81 - 98 fL 02/07/2024 15:45 [facility] MCH 36.7(H) 26.7 - 33.3 pg 02/07/2024 15:45 [facility] MCHC 33.4 32.1 - 35.9 g/dL 02/07/2024 15:45 [facility] RDW-CV 16.4(H) <14.7 % 02/07/2024 15:45 [facility] RDW-SD 67.4(H) <50.4 fl 02/07/2024 15:45 [facility] PLT 180 141 - 377 K/cmm 02/07/2024 15:45 [facility] MPV 10.5 9.5 - 12.7 fL 02/07/2024 15:45 [facility] % Neutrophils 70.0 % 02/07/2024 15:45 [facility] % Lymphocytes 13.4 % 02/07/2024 15:45 [facility] % Monocytes 13.4 % 02/07/2024 15:45 [facility] % Eosinophils 1.7 % 02/07/2024 15:45 [facility] % Basophils 0.5 % 02/07/2024 15:45 [facility] % Immature Grans 1.0 % 02/07/20 15:45 [facility] Absolute Neutrophils 6.22 2.20 - 8.85 K/cmm 02/07/2024 15:45 [facility] Absolute Lymphocytes 1.19 1.09 - 3.30 K/cmm 02/07/2024 15:45 [facility] Absolute Monocytes 1.19(H) 0.10 - 0.80 K/cmm 02/07/2024 15:45 [facility] Absolute Eosinophils 0.15 0.03 - 0.61 K/cmm 02/07/2024 15:45 [facility] ABS Basophils 0.04 0.01 - 0.11 K/cmm 02/07/2024 15:45 [facility] Absolute Immature Grans 0.09(H) 0.00 - 0.06 K/cmm 02/07/2024 15:45 [facility] Type of Differential: Auto 02/07/2024 15:45 [facility] Blood BLOOD SAMPLE TAKEN FROM CENTRAL LINE / Unknown Port / Unknown 02/07/2024 15:20 EDT 02/07/2024 15:28 EDT Augustina Colin MD PhD PACKAGES & DNA PROBE ORDERABLES [facility] [address] [place], [place] [phone] * (ABNORMAL) COMPREHENSIVE METABOLIC PANEL (ONCOLOGY USE ONLY-INC MG) (01/31/2024 10:28 EDT) Sodium 134(L) 136 - 145 mmol/L 01/31/2024 11:43 [facility] Potassium 4.0 3.5 - 5.0 mmol/L 01/31/2024 11:43 [facility] Chloride 98 96 - 110 mmol/L 01/31/2024 11:43 [facility] CO2 Total 30 22 - 32 mmol/L 01/31/2024 11:43 [facility] Glucose 140(H) 70 - 99 mg/dl 01/31/2024 11:43 [facility] BUN 18 10 - 26 mg/dL 01/31/2024 11:43 [facility] Creatinine 0.54 0.52 - 1.04 mg/dL 01/31/2024 11:43 [facility] eGFR 104 >60 mL/min/1.7 3m2 01/31/2024 11:43 [facility] Total Protein 6.0(L) 6.3 - 8.2 g/dL 01/31/2024 11:43 [facility] Albumin 2.8(L) 3.4 - 4.9 g/dL 01/31/2024 11:43 [facility] Alkaline Phosphatase 391(H) 38 - 126 U/L 01/31/2024 11:43 [facility] AST 63(H) 15 - 46 U/L 01/31/2024 11:43 [facility] ALT 52(H) <35 U/L 01/31/2024 11:43 [facility] Bilirubin, Total 2.4(H) <1.4 mg/dL 01/31/20 11:43 [facility] Calcium 8.5 8.5 - 10.5 mg/dL 01/31/2024 11:43 [facility] Magnesium 2.2 1.7 - 2.8 mg/dL 01/31/2024 11:43 [facility] Albumin/Globulin Ratio 0.9(L) 1.0 - 2.5 01/31/2024 11:43 [facility] Anion Gap 6 5 - 14 mmol/L 01/31/2024 11:43 [facility] Blood VENOUS BLOOD / Unknown Venipuncture / Unknown 01/31/2024 10:28 EDT 01/31/2024 10:39 EDT Augustina Colin MD PhD CHEMISTRY & BLOOD GA S ORDERABLES [facility] [address] [place], [place] [id number] * (ABNORMAL) COMPLETE BLOOD COUNT AND DIFFERENTIAL (01/31/2024 10:28 EDT) WBC 11.26 4.00 - 12.40 K/cmm 01/31/2024 10:53 [facility] RBC 2.61(L) 3.86 - 5.04 M/cmm 01/31/2024 10:53 [facility] Hemoglobin 9.9(L) 11.6 - 15.2 g/dL 01/31/2024 10:53 [facility] HCT 29.5(L) 34.9 - 44.4 % 01/31/2024 10:53 [facility] MCV 113(H) 81 - 98 fL 01/31/2024 10:53 [facility] MCH 37.9(H) 26.7 - 33.3 pg 01/31/2024 10:53 [facility] MCHC 33.6 32.1 - 35.9 g/dL 01/31/2024 10:53 [facility] RDW-CV 18.3(H) <14.7 % 01/31/2024 10:53 [facility] RDW-SD 77.3(H) <50.4 fl 01/31/2024 10:53 [facility] PLT 160 141 - 377 K/cmm 01/31/2024 10:53 [facility] MPV 10.6 9.5 - 12.7 fL 01/31/2024 10:53 [facility] % Neutrophils 82.4 % 01/31/2024 10:53 [facility] % Lymphocytes 8.9 % 01/31/2024 10:53 [facility] % Monocytes 7.5 % 01/31/2024 10:53 [facility] % Eosinophils 0.3 % 01/31/2024 10:53 [facility] % Basophils 0.2 % 01/31/2024 10:53 [facility] % Immature Grans 0.7 % 01/31/20 10:53 [facility] Absolute Neutrophils 9.29(H) 2.20 - 8.85 K/cmm 01/31/2024 10:53 [facility] Absolute Lymphocytes 1.00(L) 1.09 - 3.30 K/cmm 01/31/2024 10:53 [facility] Absolute Monocytes 0.84(H) 0.10 - 0.80 K/cmm 01/31/2024 10:53 [facility] Absolute Eosinophils 0.03 0.03 - 0.61 K/cmm 01/31/2024 10:53 [facility] ABS Basophils 0.02 0.01 - 0.11 K/cmm 01/31/2024 10:53 [facility] Absolute Immature Grans 0.08(H) 0.00 - 0.06 K/cmm 01/31/2024 10:53 [facility] Type of Differential: Auto 01/31/2024 10:53 [facility] Blood VENOUS BLOOD / Unknown Venipuncture / Unknown 01/31/2024 10:28 EDT 01/31/2024 10:39 EDT Augustina Colin MD PhD PACKAGES & DNA PROBE ORDERABLES [facility] [address] [place] [address] * (ABNORMAL) COMPREHENSIVE METABOLIC PANEL (ONCOLOGY USE ONLY-INC MG) (12/20/2023 11:51 EDT) Sodium 135(L) 136 - 145 mmol/L 12/20/2023 12:30 EDT [facility] Potassium 3.8 3.5 - 5.0 mmol/L 12/20/2023 12:30 [facility] Chloride 106 96 - 110 mmol/L 12/20/2023 12:30 [facility] CO2 Total 23 22 - 32 mmol/L 12/20/2023 12:30 [facility] Glucose 115(H) 70 - 99 mg/dl 12/20/2023 12:30 [facility] BUN 19 10 - 26 mg/dL 12/20/2023 12:30 [facility] Creatinine 0.52 0.52 - 1.04 mg/dL 12/20/2023 12:30 [facility] eGFR 105 >60 mL/min/1.7 3m2 12/20/2023 12:30 [facility] Total Protein 4.9(L) 6.3 - 8.2 g/dL 12/20/2023 12:30 [facility] Albumin 2.5(L) 3.4 - 4.9 g/dL 12/20/2023 12:30 [facility] Alkaline Phosphatase 321(H) 38 - 126 U/L 12/20/2023 12:30 [facility] AST 53(H) 15 - 46 U/L 12/20/2023 12:30 [facility] ALT 41(H) <35 U/L 12/20/2023 12:30 [facility] Bilirubin, Total 1.5(H) <1.4 mg/dL 12/20/19 12:30 [facility] Calcium 8.1(L) 8.5 - 10.5 mg/dL 12/20/2023 12:30 [facility] Magnesium 1.9 1.7 - 2.8 mg/dL 12/20/2023 12:30 [facility] Albumin/Globulin Ratio 1.0 1.0 - 2.5 12/20/2023 12:30 [facility] Anion Gap 6 5 - 14 mmol/L 12/20/2023 12:30 [facility] Blood VENOUS BLOOD / Unknown Venipuncture / Unknown 12/20/2023 11:51 EDT 12/20/2023 12:09 EDT Augustina Colin MD PhD CHEMISTRY & BLOOD GA S ORDERABLES Performing Organization Address [facility]/State/ZIP Co de Phone Number [facility] [address] [place] [address] * (ABNORMAL) COMPLETE BLOOD COUNT AND DIFFERENTIAL (12/20/2023 11:51 EDT) WBC 7.66 4.00 - 12.40 K/cmm 12/20/2023 12:18 [facility] RBC 2.46(L) 3.86 - 5.04 M/cmm 12/20/2023 12:18 [facility] Hemoglobin 8.4(L) 11.6 - 15.2 g/dL 12/20/2023 12:18 [facility] HCT 25.5(L) 34.9 - 44.4 % 12/20/2023 12:18 [facility] MCV 104(H) 81 - 98 fL 12/20/2023 12:18 [facility] MCH 34.1(H) 26.7 - 33.3 pg 12/20/2023 12:18 [facility] MCHC 32.9 32.1 - 35.9 g/dL 12/20/2023 12:18 [facility] RDW-CV 23.8(H) <14.7 % 12/20/2023 12:18 [facility] RDW-SD 88.5(H) <50.4 fl 12/20/2023 12:18 [facility] PLT 209 141 - 377 K/cmm 12/20/2023 12:18 [facility] MPV 10.1 9.5 - 12.7 fL 12/20/2023 12:18 [facility] % Neutrophils 82.4 % 12/20/2023 12:18 [facility] % Lymphocytes 7.2 % 12/20/2023 12:18 [facility] % Monocytes 8.9 % 12/20/2023 12:18 [facility] % Eosinophils 0.4 % 12/20/2023 12:18 [facility] % Basophils 0.3 % 12/20/2023 12:18 [facility] % Immature Grans 0.8 % 12/20/19 12:18 [facility] Absolute Neutrophils 6.32 2.20 - 8.85 K/cmm 12/20/2023 12:18 [facility] Absolute Lymphocytes 0.55(L) 1.09 - 3.30 K/cmm 12/20/2023 12:18 [facility] Absolute Monocytes 0.68 0.10 - 0.80 K/cmm 12/20/2023 12:18 [facility] Absolute Eosinophils 0.03 0.03 - 0.61 K/cmm 12/20/2023 12:18 [facility] ABS Basophils 0.02 0.01 - 0.11 K/cmm 12/20/2023 12:18 [facility] Absolute Immature Grans 0.06 0.00 - 0.06 K/cmm 12/20/2023 12:18 [facility] Type of Differential: Auto 12/20/2023 12:18 [facility] Blood VENOUS BLOOD / Unknown Venipuncture / Unknown 12/20/2023 11:51 EDT 12/20/2023 12:09 EDT Augustina Colin MD PhD PACKAGES & DNA PROBE ORDERABLES [facility] [address] [place] [address] * (ABNORMAL) COMPREHENSIVE METABOLIC PANEL (ONCOLOGY USE ONLY-INC MG) (11/29/2023 10:43 EDT) Sodium 138 136 - 145 mmol/L 11/29/2023 11:33 [facility] Potassium 3.4(L) 3.5 - 5.0 mmol/L 11/29/2023 11:33 [facility] Chloride 108 96 - 110 mmol/L 11/29/2023 11:33 [facility] CO2 Total 25 22 - 32 mmol/L 11/29/2023 11:33 [facility] Glucose 81 70 - 99 mg/dl 11/29/2023 11:33 [facility] BUN 17 10 - 26 mg/dL 11/29/2023 11:33 [facility] Creatinine 0.54 0.52 - 1.04 mg/dL 11/29/2023 11:33 [facility] eGFR 104 >60 mL/min/1.7 3m2 11/29/2023 11:33 [facility] Total Protein 5.6(L) 6.3 - 8.2 g/dL 11/29/2023 11:33 [facility] Albumin 2.8(L) 3.4 - 4.9 g/dL 11/29/2023 11:33 [facility] Alkaline Phosphatase 361(H) 38 - 126 U/L 11/29/2023 11:33 [facility] AST 69(H) 15 - 46 U/L 11/29/2023 11:33 [facility] ALT 36(H) <35 U/L 11/29/2023 11:33 [facility] Bilirubin, Total 1.4(H) <1.4 mg/dL 11/29/19 11:33 [facility] Calcium 8.5 8.5 - 10.5 mg/dL 11/29/2023 11:33 [facility] Magnesium 2.0 1.7 - 2.8 mg/dL 11/29/2023 11:33 [facility] Albumin/Globulin Ratio 1.0 1.0 - 2.5 11/29/2023 11:33 [facility] Anion Gap 5 5 - 14 mmol/L 11/29/2023 11:33 [facility] Blood VENOUS BLOOD / Unknown Port / Unknown 11/29/2023 10:43 EDT 11/29/2023 11:07 EDT Augustina Colin MD PhD CHEMISTRY & BLOOD GA S ORDERABLES [facility] [address] [place] [address] * (ABNORMAL) COMPLETE BLOOD COUNT AND DIFFERENTIAL (11/29/2023 10:43 EDT) WBC 5.19 4.00 - 12.40 K/cmm 11/29/2023 11:19 [facility] RBC 2.77(L) 3.86 - 5.04 M/cmm 11/29/2023 11:19 [facility] Hemoglobin 9.4(L) 11.6 - 15.2 g/dL 11/29/2023 11:19 [facility] HCT 27.9(L) 34.9 - 44.4 % 11/29/2023 11:19 [facility] MCV 101(H) 81 - 98 fL 11/29/2023 11:19 [facility] MCH 33.9(H) 26.7 - 33.3 pg 11/29/2023 11:19 [facility] MCHC 33.7 32.1 - 35.9 g/dL 11/29/2023 11:19 [facility] RDW-CV 23.7(H) <14.7 % 11/29/2023 11:19 [facility] RDW-SD 85.0(H) <50.4 fl 11/29/2023 11:19 [facility] PLT 191 141 - 377 K/cmm 11/29/2023 11:19 [facility] MPV 9.6 9.5 - 12.7 fL 11/29/2023 11:19 [facility] % Neutrophils 48.5 % 11/29/2023 11:19 [facility] % Lymphocytes 21.6 % 11/29/2023 11:19 [facility] % Monocytes 25.4 % 11/29/2023 11:19 [facility] % Eosinophils 3.3 % 11/29/2023 11:19 [facility] % Basophils 0.8 % 11/29/2023 11:19 [facility] % Immature Grans 0.4 % 11/29/19 11:19 [facility] Absolute Neutrophils 2.52 2.20 - 8.85 K/cmm 11/29/2023 11:19 [facility] Absolute Lymphocytes 1.12 1.09 - 3.30 K/cmm 11/29/2023 11:19 [facility] Absolute Monocytes 1.32(H) 0.10 - 0.80 K/cmm 11/29/2023 11:19 [facility] Absolute Eosinophils 0.17 0.03 - 0.61 K/cmm 11/29/2023 11:19 [facility] ABS Basophils 0.04 0.01 - 0.11 K/cmm 11/29/2023 11:19 [facility] Absolute Immature Grans 0.02 0.00 - 0.06 K/cmm 11/29/2023 11:19 T [facility] Type of Differential: Auto 11/29/2023 11:19 [facility] Blood VENOUS BLOOD / Unknown Port / Unknown 11/29/2023 10:43 EDT 11/29/2023 11:07 EDT Augustina Colin MD PhD PACKAGES & DNA PROBE ORDERABLES [facility] [address] [place] [address] * (ABNORMAL) COMPREHENSIVE METABOLIC PANEL (ONCOLOGY USE ONLY-INC MG) (11/08/2023 13:13 EDT) Sodium 137 136 - 145 mmol/L 11/08/2023 13:58 [facility] Potassium 4.4 3.5 - 5.0 mmol/L 11/08/2023 13:58 [facility] Chloride 107 96 - 110 mmol/L 11/08/2023 13:58 [facility] CO2 Total 21(L) 22 - 32 mmol/L 11/08/2023 13:58 [facility] Glucose 145(H) 70 - 99 mg/dl 11/08/2023 13:58 [facility] BUN 17 10 - 26 mg/dL 11/08/2023 13:58 [facility] Creatinine 0.58 0.52 - 1.04 mg/dL 11/08/2023 13:58 [facility] eGFR 102 >60 mL/min/1.7 3m2 11/08/2023 13:58 [facility] Total Protein 5.9(L) 6.3 - 8.2 g/dL 11/08/2023 13:58 [facility] Albumin 2.7(L) 3.4 - 4.9 g/dL 11/08/2023 13:58 [facility] Alkaline Phosphatase 437(H) 38 - 126 U/L 11/08/2023 13:58 [facility] AST 79(H) 15 - 46 U/L 11/08/2023 13:58 [facility] ALT 39(H) <35 U/L 11/08/2023 13:58 [facility] Bilirubin, Total 1.5(H) <1.4 mg/dL 11/08/19 13:58 [facility] Calcium 8.4(L) 8.5 - 10.5 mg/dL 11/08/2023 13:58 [facility] Magnesium 2.1 1.7 - 2.8 mg/dL 11/08/2023 13:58 [facility] Albumin/Globulin Ratio 0.8(L) 1.0 - 2.5 11/08/2023 13:58 [facility] Anion Gap 9 5 - 14 mmol/L 11/08/2023 13:58 [facility] Blood BLOOD SAMPLE TAKEN FROM CENTRAL LINE / Unknown Port / Unknown 11/08/2023 13:13 EDT 11/08/2023 13:37 EDT Augustina Colin MD PhD CHEMISTRY & BLOOD GA S ORDERABLES Performing Organization Address City/State/[facility] Co de Phone Number [facility] [address] [place] [address] * (ABNORMAL) COMPLETE BLOOD COUNT AND DIFFERENTIAL (11/08/2023 13:13 EDT) WBC 6.30 4.00 - 12.40 K/cmm 11/08/2023 13:48 [facility] RBC 3.46(L) 3.86 - 5.04 M/cmm 11/08/2023 13:48 [facility] Hemoglobin 10.9(L) 11.6 - 15.2 g/dL 11/08/2023 13:48 [facility] HCT 33.4(L) 34.9 - 44.4 % 11/08/2023 13:48 [facility] MCV 97 81 - 98 fL 11/08/2023 13:48 [facility] MCH 31.5 26.7 - 33.3 pg 11/08/2023 13:48 [facility] MCHC 32.6 32.1 - 35.9 g/dL 11/08/2023 13:48 [facility] RDW-CV 19.9(H) <14.7 % 11/08/2023 13:48 [facility] RDW-SD 68.3(H) <50.4 fl 11/08/2023 13:48 [facility] PLT 288 141 - 377 K/cmm 11/08/2023 13:48 [facility] MPV 10.0 9.5 - 12.7 fL 11/08/2023 13:48 [facility] % Neutrophils 62.3 % 11/08/2023 13:48 [facility] % Lymphocytes 11.7 % 11/08/2023 13:48 [facility] % Monocytes 23.2 % 11/08/2023 13:48 [facility] % Eosinophils 1.0 % 11/08/2023 13:48 [facility] % Basophils 1.0 % 11/08/2023 13:48 [facility] % Immature Grans 0.8 % 11/08/19 13:48 [facility] Absolute Neutrophils 3.93 2.20 - 8.85 K/cmm 11/08/2023 13:48 [facility] Absolute Lymphocytes 0.74(L) 1.09 - 3.30 K/cmm 11/08/2023 13:48 [facility] Absolute Monocytes 1.46(H) 0.10 - 0.80 K/cmm 11/08/2023 13:48 [facility] Absolute Eosinophils 0.06 0.03 - 0.61 K/cmm 11/08/2023 13:48 [facility] ABS Basophils 0.06 0.01 - 0.11 K/cmm 11/08/2023 13:48 [facility] Absolute Immature Grans 0.05 0.00 - 0.06 K/cmm 11/08/2023 13:48 [facility] Type of Differential: Auto 11/08/2023 13:48 [facility] Blood BLOOD SAMPLE TAKEN FROM CENTRAL LINE / Unknown Port / Unknown 11/08/2023 13:13 EDT 11/08/2023 13:37 EDT Augustina Colin MD PhD PACKAGES & DNA PROBE ORDERABLES [facility] [address] [place] [address] * (ABNORMAL) COMPREHENSIVE METABOLIC PANEL (ONCOLOGY USE ONLY-INC MG) (11/03/2023 16:33 EDT) Sodium 138 136 - 145 mmol/L 11/03/2023 16:55 [facility] Potassium 4.2 3.5 - 5.0 mmol/L 11/03/2023 16:55 [facility] Chloride 109 96 - 110 mmol/L 11/03/2023 16:55 [facility] CO2 Total 24 22 - 32 mmol/L 11/03/2023 16:55 [facility] Glucose 99 70 - 99 mg/dl 11/03/2023 16:55 [facility] BUN 13 10 - 26 mg/dL 11/03/2023 16:55 [facility] Creatinine 0.56 0.52 - 1.04 mg/dL 11/03/2023 16:55 [facility] eGFR 103 >60 mL/min/1.7 3m2 11/03/2023 16:55 [facility] Total Protein 5.6(L) 6.3 - 8.2 g/dL 11/03/2023 16:55 [facility] Albumin 2.7(L) 3.4 - 4.9 g/dL 11/03/2023 16:55 [facility] Alkaline Phosphatase 422(H) 38 - 126 U/L 11/03/2023 16:55 [facility] AST 116(H) 15 - 46 U/L 11/03/2023 16:55 [facility] ALT 59(H) <35 U/L 11/03/2023 16:55 [facility] Bilirubin, Total 1.9(H) <1.4 mg/dL 11/03/19 16:55 [facility] Calcium 8.1(L) 8.5 - 10.5 mg/dL 11/03/2023 16:55 [facility] Magnesium 2.0 1.7 - 2.8 mg/dL 11/03/2023 16:55 [facility] Albumin/Globulin Ratio 0.9(L) 1.0 - 2.5 11/03/2023 16:55 [facility] Anion Gap 5 5 - 14 mmol/L 11/03/2023 16:55 [facility] Blood VENOUS BLOOD / Unknown Venipuncture / Unknown 11/03/2023 16:33 EDT 11/03/2023 16:37 EDT Augustina Colin MD PhD CHEMISTRY & BLOOD GA S ORDERABLES Performing Organization Address [facility]/State/ZIP Co de Phone Number [facility] [address] [place] [address] * (ABNORMAL) COMPLETE BLOOD COUNT AND DIFFERENTIAL (11/03/2023 16:33 EDT) WBC 4.02 4.00 - 12.40 K/cmm 11/03/2023 16:53 [facility] RBC 3.20(L) 3.86 - 5.04 M/cmm 11/03/2023 16:53 [facility] Hemoglobin 10.0(L) 11.6 - 15.2 g/dL 11/03/2023 16:53 [facility] HCT 30.4(L) 34.9 - 44.4 % 11/03/2023 16:53 [facility] MCV 95 81 - 98 fL 11/03/2023 16:53 [facility] MCH 31.3 26.7 - 33.3 pg 11/03/2023 16:53 [facility] MCHC 32.9 32.1 - 35.9 g/dL 11/03/2023 16:53 [facility] RDW-CV 18.1(H) <14.7 % 11/03/2023 16:53 [facility] RDW-SD 57.6(H) <50.4 fl 11/03/2023 16:53 [facility] PLT 264 141 - 377 K/cm 11/03/2023 16:53 [facility] MPV 10.0 9.5 - 12.7 fL 11/03/2023 16:53 [facility] % Neutrophils 48.0 % 11/03/2023 16:53 [facility] % Lymphocytes 21.9 % 11/03/2023 16:53 [facility] % Monocytes 25.4 % 11/03/2023 16:53 [facility] % Eosinophils 2.7 % 11/03/2023 16:53 [facility] % Basophils 1.5 % 11/03/2023 16:53 [facility] % Immature Grans 0.5 % 11/03/19 16:53 [facility] Absolute Neutrophils 1.93(L) 2.20 - 8.85 K/cmm 11/03/2023 16:53 [facility] Absolute Lymphocytes 0.88(L) 1.09 - 3.30 K/cmm 11/03/2023 16:53 [facility] Absolute Monocytes 1.02(H) 0.10 - 0.80 K/cmm 11/03/2023 16:53 [facility] Absolute Eosinophils 0.11 0.03 - 0.61 K/cmm 11/03/2023 16:53 [facility] ABS Basophils 0.06 0.01 - 0.11 K/cmm 11/03/2023 16:53 [facility] Absolute Immature Grans 0.02 0.00 - 0.06 K/cmm 11/03/2023 16:53 [facility] Type of Differential: Auto 11/03/2023 16:53 [facility] Blood VENOUS BLOOD / Unknown Venipuncture / Unknown 11/03/2023 16:33 EDT 11/03/2023 16:37 EDT Augustina Colin MD PhD PACKAGES & DNA PROBE ORDERABLES [facility] [address] [place] [address] * (ABNORMAL) COMPREHENSIVE METABOLIC PANEL (ONCOLOGY USE ONLY-INC MG) (10/27/2023 9:48 EDT) Sodium 137 136 - 145 mmol/L 10/27/2023 10:16 [facility] Potassium 3.7 3.5 - 5.0 mmol/L 10/27/2023 10:16 [facility] Chloride 109 96 - 110 mmol/L 10/27/2023 10:16 [facility] CO2 Total 23 22 - 32 mmol/L 10/27/2023 10:16 [facility] Glucose 92 70 - 99 mg/dl 10/27/2023 10:16 [facility] BUN 15 10 - 26 mg/dL 10/27/2023 10:16 [facility] Creatinine 0.62 0.52 - 1.04 mg/dL 10/27/2023 10:16 [facility] eGFR 101 >60 mL/min/1.7 3m2 10/27/2023 10:16 [facility] Total Protein 5.8(L) 6.3 - 8.2 g/dL 10/27/2023 10:16 [facility] Albumin 2.9(L) 3.4 - 4.9 g/dL 10/27/2023 10:16 [facility] Alkaline Phosphatase 416(H) 38 - 126 U/L 10/27/2023 10:16 [facility] AST 97(H) 15 - 46 U/L 10/27/2023 10:16 [facility] ALT 60(H) <35 U/L 10/27/2023 10:16 [facility] Bilirubin, Total 1.5(H) <1.4 mg/dL 10/27/19 24 10:16 [facility] Calcium 8.3(L) 8.5 - 10.5 mg/dL 10/27/2023 10:16 [facility] Magnesium 1.9 1.7 - 2.8 mg/dL 10/27/2023 10:16 [facility] Albumin/Globulin Ratio 1.0 1.0 - 2.5 10/27/2023 10:16 [facility] Anion Gap 5 5 - 14 mmol/L 10/27/2023 10:16 [facility] Blood VENOUS BLOOD / Unknown Venipuncture / Unknown 10/27/2023 9:48 EDT 10/27/2023 9:55 EDT Augustina Colin MD PhD CHEMISTRY & BLOOD GA S ORDERABLES Performing Organization Address City/State/[facility] Co de Phone Number [facility] [address] [place] [address] * (ABNORMAL) COMPLETE BLOOD COUNT AND DIFFERENTIAL (10/27/2023 9:48 EDT) WBC 4.96 4.00 - 12.40 K/cmm 10/27/2023 10:04 [facility] RBC 3.34(L) 3.86 - 5.04 M/cmm 10/27/2023 10:04 [facility] Hemoglobin 10.5(L) 11.6 - 15.2 g/dL 10/27/2023 10:04 [facility] HCT 31.7(L) 34.9 - 44.4 % 10/27/2023 10:04 [facility] MCV 95 81 - 98 fL 10/27/2023 10:04 [facility] MCH 31.4 26.7 - 33.3 pg 10/27/2023 10:04 [facility] MCHC 33.1 32.1 - 35.9 g/dL 10/27/2023 10:04 [facility] RDW-CV 15.8(H) <14.7 % 10/27/2023 10:04 [facility] RDW-SD 54.7(H) <50.4 fl 10/27/2023 10:04 [facility] PLT 116(L) 141 - 377 K/cmm 10/27/2023 10:04 [facility] MPV 10.6 9.5 - 12.7 fL 10/27/2023 10:04 [facility] % Neutrophils 76.0 % 10/27/2023 10:04 [facility] % Lymphocytes 12.7 % 10/27/2023 10:04 [facility] % Monocytes 7.5 % 10/27/2023 10:04 [facility] % Eosinophils 2.6 % 10/27/2023 10:04 [facility] % Basophils 0.8 % 10/27/2023 10:04 [facility] % Immature Grans 0.4 % 10/27/19 24 10:04 [facility] Absolute Neutrophils 3.77 2.20 - 8.85 K/cmm 10/27/2023 10:04 [facility] Absolute Lymphocytes 0.63(L) 1.09 - 3.30 K/cmm 10/27/2023 10:04 [facility] Absolute Monocytes 0.37 0.10 - 0.80 K/cmm 10/27/2023 10:04 [facility] Absolute Eosinophils 0.13 0.03 - 0.61 K/cmm 10/27/2023 10:04 EDT [facility] ABS Basophils 0.04 0.01 - 0.11 K/formerly [facility] 10/27/2023 10:04 [facility] Absolute Immature Grans 0.02 0.00 - 0.06 /formerly [facility] 10/27/2023 10:04 [facility] Type of Differential: Auto 10/27/2023 10:04 [facility] Blood VENOUS BLOOD / Unknown Venipuncture / Unknown 10/27/2023 9:48 EDT 10/27/2023 9:55 EDT Augustina Colin MD PhD PACKAGES & DNA PROBE ORDERABLES [facility] [address] [place] [address] * (ABNORMAL) COMPREHENSIVE METABOLIC PANEL (ONCOLOGY USE ONLY-INC MG) (10/18/2023 11:01 EDT) Sodium 141 136 - 145 mmol/L 10/18/2023 11:45 [facility] Potassium 3.7 3.5 - 5.0 mmol/L 10/18/2023 11:45 [facility] Chloride 111(H) 96 - 110 mmol/L 10/18/2023 11:45 [facility] CO2 Total 21(L) 22 - 32 mmol/L 10/18/2023 11:45 [facility] Glucose 95 70 - 99 mg/dl 10/18/2023 11:45 [facility] BUN 14 10 - 26 mg/dL 10/18/2023 11:45 [facility] Creatinine 0.58 0.52 - 1.04 mg/dL 10/18/2023 11:45 [facility] eGFR 102 >60 mL/min/1.7 3m2 10/18/2023 11:45 [facility] Total Protein 6.4 6.3 - 8.2 g/dL 10/18/2023 11:45 [facility] Albumin 3.2(L) 3.4 - 4.9 g/dL 10/18/2023 11:45 [facility] Alkaline Phosphatase 380(H) 38 - 126 U/L 10/18/2023 11:45 [facility] AST 139(H) 15 - 46 U/L 10/18/2023 11:45 [facility] ALT 79(H) <35 U/L 10/18/2023 11:45 [facility] Bilirubin, Total 1.5(H) <1.4 mg/dL 10/18/19 11:45 [facility] Calcium 9.1 8.5 - 10.5 mg/dL 10/18/2023 11:45 [facility] Magnesium 2.0 1.7 - 2.8 mg/dL 10/18/2023 11:45 [facility] Albumin/Globulin Ratio 1.0 1.0 - 2.5 10/18/2023 11:45 [facility] Anion Gap 9 5 - 14 mmol/L 10/18/2023 11:45 [facility] Blood BLOOD SAMPLE TAKEN FROM CENTRAL LINE / Unknown Port / Unknown 10/18/2023 11:01 EDT 10/18/2023 11:15 EDT Augustina Colin MD PhD CHEMISTRY & BLOOD GA S ORDERABLES [facility] [address] [place] [address] * (ABNORMAL) COMPLETE BLOOD COUNT AND DIFFERENTIAL (10/18/2023 11:01 EDT) WBC 7.40 4.00 - 12.40 K/cmm 10/18/2023 11:31 [facility] RBC 3.59(L) 3.86 - 5.04 M/cmm 10/18/2023 11:31 [facility] Hemoglobin 11.1(L) 11.6 - 15.2 g/dL 10/18/2023 11:31 [facility] HCT 34.4(L) 34.9 - 44.4 % 10/18/2023 11:31 [facility] MCV 96 81 - 98 fL 10/18/2023 11:31 [facility] MCH 30.9 26.7 - 33.3 pg 10/18/2023 11:31 [facility] MCHC 32.3 32.1 - 35.9 g/dL 10/18/2023 11:31 [facility] RDW-CV 16.0(H) <14.7 % 10/18/2023 11:31 [facility] RDW-SD 56.1(H) <50.4 fl 10/18/2023 11:31 [facility] PLT 163 141 - 377 K/cmm 10/18/2023 11:31 [facility] MPV 10.8 9.5 - 12.7 fL 10/18/2023 11:31 [facility] % Neutrophils 69.5 % 10/18/2023 11:31 [facility] % Lymphocytes 15.0 % 10/18/2023 11:31 [facility] % Monocytes 12.2 % 10/18/2023 11:31 [facility] % Eosinophils 2.3 % 10/18/2023 11:31 [facility] % Basophils 0.7 % 10/18/2023 11:31 [facility] % Immature Grans 0.3 % 10/18/19 11:31 [facility] Absolute Neutrophils 5.15 2.20 - 8.85 K/cmm 10/18/2023 11:31 [facility] Absolute Lymphocytes 1.11 1.09 - 3.30 K/cmm 10/18/2023 11:31 [facility] Absolute Monocytes 0.90(H) 0.10 - 0.80 K/cmm 10/18/2023 11:31 [facility] Absolute Eosinophils 0.17 0.03 - 0.61 K/cmm 10/18/2023 11:31 EDT [facility] ABS Basophils 0.05 0.01 - 0.11 /formerly [facility] 10/18/2023 11:31 T [facility] Absolute Immature Grans 0.02 0.00 - 0.06 /formerly [facility] 10/18/2023 11:31 T [facility] Type of Differential: Auto 10/18/2023 11:31 T [facility] Blood BLOOD SAMPLE TAKEN FROM CENTRAL LINE / Unknown Port / Unknown 10/18/2023 11:01 EDT 10/18/2023 11:15 EDT Augustina Colin MD PhD PACKAGES & DNA PROBE ORDERABLES [facility] [address] [place] [address] * (ABNORMAL) COMPREHENSIVE METABOLIC PANEL (ONCOLOGY USE ONLY-INC MG) (10/11/2023 10:17 EDT) Sodium 141 136 - 145 mmol/L 10/11/2023 10:55 [facility] Potassium 3.8 3.5 - 5.0 mmol/L 10/11/2023 10:55 [facility] Chloride 109 96 - 110 mmol/L 10/11/2023 10:55 [facility] CO2 Total 25 22 - 32 mmol/L 10/11/2023 10:55 [facility] Glucose 113(H) 70 - 99 mg/dl 10/11/2023 10:55 [facility] BUN 24 10 - 26 mg/dL 10/11/2023 10:55 [facility] Creatinine 0.71 0.52 - 1.04 mg/dL 10/11/2023 10:55 [facility] eGFR 96 >60 mL/min/1.7 3m2 10/11/2023 10:55 [facility] Total Protein 5.8(L) 6.3 - 8.2 g/dL 10/11/2023 10:55 [facility] Albumin 3.0(L) 3.4 - 4.9 g/dL 10/11/2023 10:55 [facility] Alkaline Phosphatase 351(H) 38 - 126 U/L 10/11/2023 10:55 [facility] AST 89(H) 15 - 46 U/L 10/11/2023 10:55 [facility] ALT 61(H) <35 U/L 10/11/2023 10:55 [facility] Bilirubin, Total 1.2 <1.4 mg/dL 10/11/19 10:55 [facility] Calcium 8.6 8.5 - 10.5 mg/dL 10/11/2023 10:55 [facility] Magnesium 2.1 1.7 - 2.8 mg/dL 10/11/2023 10:55 [facility] Albumin/Globulin Ratio 1.1 1.0 - 2.5 10/11/2023 10:55 [facility] Anion Gap 7 5 - 14 mmol/L 10/11/2023 10:55 [facility] Blood VENOUS BLOOD / Unknown Venipuncture / Unknown 10/11/2023 10:17 EDT 10/11/2023 10:23 EDT Augustina Colin MD PhD CHEMISTRY & BLOOD GA S ORDERABLES Performing Organization Address City/State/[facility] Co de Phone Number [facility] [address] [place] [phone] * (ABNORMAL) COMPLETE BLOOD COUNT AND DIFFERENTIAL (10/11/2023 10:17 EDT) WBC 8.63 4.00 - 12.40 K/cmm 10/11/2023 10:38 [facility] RBC 3.55(L) 3.86 - 5.04 M/cmm 10/11/2023 10:38 [facility] Hemoglobin 11.3(L) 11.6 - 15.2 g/dL 10/11/2023 10:38 [facility] HCT 35.1 34.9 - 44.4 % 10/11/2023 10:38 [facility] MCV 99(H) 81 - 98 fL 10/11/2023 10:38 [facility] MCH 31.8 26.7 - 33.3 pg 10/11/2023 10:38 [facility] MCHC 32.2 32.1 - 35.9 g/dL 10/11/2023 10:38 [facility] RDW-CV 15.6(H) <14.7 % 10/11/2023 10:38 [facility] RDW-SD 56.6(H) <50.4 fl 10/11/2023 10:38 [facility] PLT 133(L) 141 - 377 K/cmm 10/11/2023 10:38 [facility] MPV 10.6 9.5 - 12.7 fL 10/11/2023 10:38 [facility] % Neutrophils 71.4 % 10/11/2023 10:38 [facility] % Lymphocytes 14.9 % 10/11/2023 10:38 [facility] % Monocytes 11.0 % 10/11/2023 10:38 [facility] % Eosinophils 2.0 % 10/11/2023 10:38 [facility] % Basophils 0.2 % 10/11/2023 10:38 [facility] % Immature Grans 0.5 % 10/11/19 10:38 [facility] Absolute Neutrophils 6.16 2.20 - 8.85 K/cmm 10/11/2023 10:38 [facility] Absolute Lymphocytes 1.29 1.09 - 3.30 K/cmm 10/11/2023 10:38 [facility] Absolute Monocytes 0.95(H) 0.10 - 0.80 K/cmm 10/11/2023 10:38 [facility] Absolute Eosinophils 0.17 0.03 - 0.61 K/cmm 10/11/2023 10:38 EDT [facility] ABS Basophils 0.02 0.01 - 0.11 K/cmm 10/11/2023 10:38 EDT [facility] Absolute Immature Grans 0.04 0.00 - 0.06 K/cmm 10/11/2023 10:38 EDT [facility] Type of Differential: Auto 10/11/2023 10:38 EDT [facility] Blood VENOUS BLOOD / Unknown Venipuncture / Unknown 10/11/2023 10:17 EDT 10/11/2023 10:23 EDT Augustina Colin MD PhD PACKAGES & DNA PROBE ORDERABLES [facility] [address] [place] [address] * LIPID PROFILE (INCLUDES CHOLESTEROL, TRIGLYCERIDES, HDL, LDL) (08/15/2023 10:26 EST) Cholesterol 191 <200 mg/dL 08/15/2023 10:52 [facility] Comment:Note that therapeuti c goals will differ between patients based on cardiac risk factors and current medical therapy. HDL 52 >=50 mg/dl 08/15/2023 10:52 [facility] Comment:Note that therapeuti c goals will differ between patients based on cardiac risk factors and current medical therapy. LDL, Calculated 119 <160 mg/dL 10:52 [facility] Comment:Note that therapeuti c goals will differ between patients based on cardiac risk factors and current medical therapy. Triglyceride 100 <=150 mg/dL 08/15/2023 10:52 [facility] Comment:Note that therapeuti c goals will differ between patients based on cardiac risk factors and current medical therapy. Chol/HDL Ratio 3.7 See Note 08/15/2023 10:52 [facility] Comment:No reference range h as been established for CHOL/HDL ratio. Non HDL Cholesterol 139 <160 mg/dL 08/15/2023 10:52 [facility] Comment:Note that therapeuti c goals will differ between patients based on cardiac risk factors and current medical therapy. Blood VENOUS BLOOD / Unknown Venipuncture / Unknown 08/15/2023 10:26 EST 08/15/2023 10:34 EST Augustina Colin MD PhD CHEMISTRY & BLOOD GA S ORDERABLES [facility] [address] [place] [address] * (ABNORMAL) COMPREHENSIVE METABOLIC PANEL (ONCOLOGY USE ONLY-INC MG) (08/15/2023 10:26 EST) Sodium 141 136 - 145 mmol/L 08/15/2023 10:52 [facility] Potassium 4.0 3.5 - 5.0 mmol/L 08/15/2023 10:52 [facility] Chloride 109 96 - 110 mmol/L 08/15/2023 10:52 [facility] CO2 Total 29 22 - 32 mmol/L 08/15/2023 10:52 [facility] Glucose 86 70 - 99 mg/dl 08/15/2023 10:52 [facility] BUN 20 10 - 26 mg/dL 08/15/2023 10:52 [facility] Creatinine 0.61 0.52 - 1.04 mg/dL 08/15/2023 10:52 [facility] eGFR 101 >60 mL/min/1.7 3m2 08/15/2023 10:52 [facility] Total Protein 6.1(L) 6.3 - 8.2 g/dL 08/15/2023 10:52 [facility] Albumin 3.2(L) 3.4 - 4.9 g/dL 08/15/2023 10:52 [facility] Alkaline Phosphatase 179(H) 38 - 126 U/L 08/15/2023 10:52 [facility] AST 62(H) 15 - 46 U/L 08/15/2023 10:52 [facility] ALT 24 <35 U/L 08/15/2023 10:52 [facility] Bilirubin, Total 1.3 <1.4 mg/dL 08/15/19 10:52 [facility] Calcium 8.6 8.5 - 10.5 mg/dL 08/15/2023 10:52 [facility] Magnesium 2.0 1.7 - 2.8 mg/dL 08/15/2023 10:52 [facility] Albumin/Globulin Ratio 1.1 1.0 - 2.5 08/15/2023 10:52 [facility] Anion Gap 3(L) 5 - 14 mmol/L 08/15/2023 10:52 [facility] Blood VENOUS BLOOD / Unknown Venipuncture / Unknown 08/15/2023 10:26 EST 08/15/2023 10:34 EST Augustina Colin MD PhD CHEMISTRY & BLOOD GA S ORDERABLES Performing Organization Address [facility]/State/ZIP Co de Phone Number [facility] [address] [place] [address] * (ABNORMAL) COMPLETE BLOOD COUNT AND DIFFERENTIAL (08/15/2023 10:26 EST) WBC 5.64 4.00 - 12.40 K/cmm 08/15/2023 10:53 [facility] RBC 3.03(L) 3.86 - 5.04 M/cmm 08/15/2023 10:53 [facility] Hemoglobin 11.1(L) 11.6 - 15.2 g/dL 08/15/2023 10:53 [facility] HCT 32.6(L) 34.9 - 44.4 % 08/15/2023 10:53 [facility] MCV 108(H) 81 - 98 fL 08/15/2023 10:53 [facility] MCH 36.6(H) 26.7 - 33.3 pg 08/15/2023 10:53 [facility] MCHC 34.0 32.1 - 35.9 g/dL 08/15/2023 10:53 [facility] RDW-CV 17.4(H) <14.7 % 08/15/2023 10:53 [facility] RDW-SD 69.2(H) <50.4 fl 08/15/2023 10:53 [facility] PLT 127(L) 141 - 377 K/cmm 08/15/2023 10:53 [facility] MPV 10.1 9.5 - 12.7 fL 08/15/2023 10:53 [facility] % Neutrophils 64.3 % 08/15/2023 10:53 [facility] % Lymphocytes 17.6 % 08/15/2023 10:53 [facility] % Monocytes 15.1 % 08/15/2023 10:53 [facility] % Eosinophils 2.1 % 08/15/2023 10:53 [facility] % Basophils 0.7 % 08/15/2023 10:53 [facility] % Immature Grans 0.2 % 08/15/19 24 10:53 [facility] Absolute Neutrophils 3.63 2.20 - 8.85 K/cmm 08/15/2023 10:53 [facility] Absolute Lymphocytes 0.99(L) 1.09 - 3.30 K/cmm 08/15/2023 10:53 [facility] Absolute Monocytes 0.85(H) 0.10 - 0.80 K/cmm 08/15/2023 10:53 [facility] Absolute Eosinophils 0.12 0.03 - 0.61 K/cmm 08/15/2023 10:53 [facility] ABS Basophils 0.04 0.01 - 0.11 K/cmm 08/15/2023 10:53 [facility] Absolute Immature Grans 0.01 0.00 - 0.06 K/cmm 08/15/2023 10:53 [facility] Type of Differential: Auto 08/15/2023 10:53 [facility] Blood VENOUS BLOOD / Unknown Venipuncture / Unknown 08/15/2023 10:26 EST 08/15/2023 10:34 EST Augustina Colin MD PhD PACKAGES & DNA PROBE ORDERABLES [facility] [address] [place] [address] documented in this encounter Visit Diagnoses Diagnosis Primary malignant neoplasm of breast with metastasis (HCC-CMS)- Primary Encounter for long-term current use of medication documented in this encounter Care Teams Document Analyst Relationship Specialty Start Date End Date Linda Blancas MD [address] [place] [address] [address] [place] [address] PCP - General 01/06/11 Adolfo Carreno MD [address] [place] [phone] General Surgery 04/26/19 Augustina Colin MD PhD [address] [place] [phone] Medical Oncology 04/26/19 documented as of this encounter
--- OUTSIDE RECORDS SUMMARY | 2024-03-20 14:43 | XMS_ITS | Encounter Summary ---
Author Organization [facility] Address [address] [place] [address] Care Team Providers Care Vice President Marketing & Development Name Role Phone Linda Blancas MD Primary Care Provider [phone] Adolfo Carreno MD Unavailable [phone] Augustina Colin MD PhD Unavailable Unavailable Encounter Details Date Type Department Care Team (Late st Contact Info) Description 08/04/2023 Orders Only [facility] Hematology & Oncology - Main [place] [address] [place] [address] Kaylah Stevens RN Primary malignant neoplasm of [...] Dispensed Refills Start Date End Da te elacestrant 345 mg tabletIndications:Primary malignant neoplasm of breast with metastasis (HCC-CMS) Take 345 mg by mouth daily. 30 Tablet 2 08/04/2023 11/23/2023 documented in this encounter Plan of Treatment Upcoming Encounters Date Type Department Care Team (Late st Contact Info) Description 04/02/2024 10:30 EDT Appointment [facility] Interventional Radiology Unit [address] [place] [address] [phone] 04/02/2024 15:15 EDT Office Visit [facility] Surgical Oncology - [address] [phone] Adolfo Carreno MD [address] [place] [address] 2 [place] [phone] 04/05/2024 9:30 EDT Telemedicine [facility] [address] [place] [address] [phone] Chichi Woods MD [address] [place] [address], [address] [phone] 04/11/2024 15:00 EDT Telemedicine [facility] Hematology & Oncology - [address] [phone] Alisson Carreon MD [address] [place] [address] 2 [place] [phone] 04/13/2024 13:30 EDT Appointment [facility] Hematology & Oncology [address] [phone] 04/13/2024 14:00 EDT Appointment [facility] Hematology & Oncology [address] [address] 04/16/2024 10:[address] [facility] - [facility] [address] [place] [address] [phone] Chichi Woods MD [address] [place] [phone] 04/24/2024 9:00 EST Appointment [facility] Radiology CT Outpatient - [address] [id number] 04/24/2024 11:00 EST Appointment [facility] Breast Imaging - [facility] [address] [phone] 04/27/2024 12:00 EST Appointment [facility] Hematology & Oncology [address] [phone] 05/02/2024 15:00 EST Telemedicine [facility] Hematology & Oncology [address] [phone] Alisson Carreon MD [address] [place] [address], Level [address] [place] [phone] 05/04/2024 10:15 EST Ancillary Procedure [facility] Cardiology - [place] [address] 05/04/2024 11:30 EST Appointment [facility] Hematology & Oncology [address] [phone] 05/04/2024 12:00 EST Appointment [facility] Hematology & Oncology - [address] [phone] 06/12/2024 13:00 [facility] Radiology CT - [address] [address] documented as of this encounter Visit Diagnoses Diagnosis Primary malignant neoplasm of breast with metastasis (HCC-CMS)- Primary documented in this encounter Discontinued Medications Medication Sig Discontinue Reason Start Date End Da te elacestrant 345 mg tablet Take 345 mg by mouth daily. 08/01/2023 08/04/2023 documented as of this encounter Care Teams Vice President Marketing & Development Relationship Specialty Start Date End Date Linda Blancas MD [address] [place] [address] PCP - General 01/06/11 Adolfo Carreno MD [address] [place] [address], [facility] [address] [place] [phone] General Surgery 04/26/19 Augustina Colin MD PhD [address] [place] [address] 2 [place] [phone] Medical Oncology 04/26/19 documented as of this encounter
--- OUTSIDE RECORDS SUMMARY | 2024-03-20 14:43 | XMS_ITS | Encounter Summary ---
Author Organization [facility] Address [address] [place] [address] Care Team Providers Care Transport Specialist Name Role Phone Linda Blancas MD Primary Care Provider [phone] Adolfo Carreno MD Unavailable [phone] Augustina Colin MD PhD Unavailable Unavailable Reason for Referral * Consult (STAT) - Authorized Specialty Diagnoses / Procedures Referred By [facility] Referred To Contact Pharmacy Diagnoses Primary malignant neoplasm of breast with metastasis (HCC-CMS) Augustina Colin MD PhD [facility] [address] [place] [address] Referral ID Status Reason Start Date Expiration Date Visits Requested Visits Authorized [id number] Authorized Specialty Services Required 07/28/2023 1 1 Question Answer PA Type: New Medication to be Prior Authorized: Elacestrant 345 mg daily Comments The purpose of this request is to inform precertification staff that the requested service needs to be reviewed for prior-authorization. Reason for Visit * Reason Onset Date Comments Medication Management 07/28/2023 Encounter Details Date Type Department Care Team ([facility] Contact Info) Description 07/28/2023 Orders Only [facility] Hematology & Oncology - Main [place] [address] [place] [address] Kaylah Stevens RN Primary malignant neoplasm of [...] Progress Notes * Kaylah Stevens RN - 07/28/2023 1138 EST TANK chinchilla placed per Dr. Colin. documented in this encounter Plan of Treatment Upcoming Encounters Date Type Department Care Team (Late st Contact Info) Description 04/02/2024 10:30 EDT Appointment [facility] Interventional Radiology Unit [address] [place] [address] [phone] 04/02/2024 15:15 EDT Office Visit [facility] Surgical Oncology - [address] [phone] Adolfo Carreno MD 111 [facility], Level [address] [place] [phone] 04/05/2024 9:30 EDT Telemedicine [facility] Services [address] [place] [address] [phone] Chichi Woods MD [address] [place] [address] [phone] 04/11/2024 15:00 EDT Telemedicine [facility] Hematology & Oncology - [address] [phone] Alisson Carreon MD [address] [place] [address] 2 [place] [phone] 04/13/2024 13:30 EDT Appointment [facility] Hematology & Oncology - [address] [phone] 04/13/2024 14:00 EDT Appointment [facility] Hematology & Oncology [address] [phone] 04/16/2024 10:00 EST Telemedicine [facility] [address] [place] [address] [phone] Chichi Woods MD [address] [place] [address] [phone] 04/24/2024 9:00 EST Appointment [facility] Radiology CT Outpatient - [address] [id number] 04/24/2024 11:00 EST Appointment [facility] Breast Imaging - [address] 296991 04/27/2024 12:00 EST Appointment [facility] Hematology & Oncology - [address] 337171 05/02/2024 15:00 EST Telemedicine [facility] Hematology & Oncology [address] 264451 Alisson Carreon MD [address] [place] [address] [phone] 05/04/2024 10:15 EST Ancillary Procedure [facility] Cardiology - [address] [place] [address] 05/04/2024 11:30 EST Appointment [facility] Hematology & Oncology [address] [address] 05/04/2024 12:00 EST Appointment [facility] Hematology & Oncology [address] 079311 06/12/2024 13:00 EST Appointment [facility] Radiology CT - [address] 332161 Scheduled Referrals Name Type Priority Associated Diagnoses Order Schedule AMB CONS/FOLLOW UP SPECIALTY PHARMACY Outpatient Referral Routine/Next Available Primary malignant neoplasm of breast with metastasis (HCC-CMS) Expected: 07/28/2023 (Approximate), Expires: 07/28/2024 documented as of this encounter Visit Diagnoses Diagnosis Primary malignant neoplasm of breast with metastasis (HCC-CMS)- Primary documented in this encounter Care Teams Transport Specialist Relationship Specialty Start Date End Date Linda Blancas MD [facility] [address] [place] [address] PCP - General 01/06/11 Adolfo Carreno MD [address] [place] [phone] General Surgery 04/26/19 Augustina Colin MD PhD [address] [place] [phone] Medical Oncology 04/26/19 documented as of this encounter
--- OUTSIDE RECORDS SUMMARY | 2024-03-20 14:43 | XMS_ITS | Encounter Summary ---
Author Organization [facility] Address [address] [place] [address] Care Team Providers Care Aoc Director Intelligence Officer Name Role Phone Linda Blancas MD Primary Care Provider [phone] Adolfo Carreno MD Unavailable [phone] Augustina Colin MD PhD Unavailable Unavailable Encounter Details Date Type Department Care Team (Late st Contact Info) Description 07/11/2023 Specialty Pharmacy [facility] [address] [place], [place] [id number] Allen Day, [facility] Social History Tobacco Use Types Packs/Day Years [...] of this encounter Progress Notes * Kaylah Moffett - 07/11/2023 1019 EST Specialty Pharmacy Documentation Medication: Capecitabine Clinic: Onc Reason for Encounter: outreach Notes: possible drug therapy switch, appt 07/12 at 1330. She might be switching to Orserdu (elacestrant)- which we can't fill, its restricted to [employer] by Chrystal and [id number]- Per Deana Odell Follow up date: 07/12 pm Follow up reason: outreach * Ingrid Quintana - 07/11/2023 1019 EST Per notes below, pending results of path report, PT will be switching to Orserdu. No referral yet, check on Tuesday 07/18. We will do the PA for the drug, but we do not have access to the medication so we would not dispense. Please verify PT is all set with that before we discharge from services. documented in this encounter Plan of Treatment Upcoming Encounters Date Type Department Care Team (Late st Contact Info) Description 04/02/2024 10:30 EDT Appointment [facility] Interventional Radiology Unit [address] [place] [address] [phone] 04/02/2024 15:15 EDT Office Visit [facility] Surgical Oncology - [address] [phone] Adolfo Carreno MD [address] [facility], Level [address] [place] [phone] 04/05/2024 9:30 EDT Telemedicine [facility] [address] [place] [address] [phone] Chichi Woods MD [address] [place] [phone] 04/11/2024 15:00 EDT Telemedicine [facility] Hematology & Oncology [address] [phone] Alisson Carreon MD [address] [place] [address], Level [address] [place] [phone] 04/13/2024 13:30 EDT Appointment [facility] Hematology & Oncology [address] [phone] 04/13/2024 14:00 EDT Appointment [facility] Hematology & Oncology [address] [phone] 04/16/2024 10:00 EST Telemedicine [facility] [address] [place] [address] [phone] Chichi Woods MD [address] [place] [phone] 04/24/2024 9:00 EST Appointment [facility] Radiology CT Outpatient - [address] 193461 04/24/2024 11:00 EST Appointment [facility] Breast Imaging - [address] 216841 04/27/2024 12:00 EST Appointment [facility] Hematology & Oncology - [address] 944231 05/02/2024 15:00 EST Telemedicine [facility] Hematology & Oncology - [address] [phone] Alisson Carreon MD [address] [place] [address] 2 [place] [phone] 05/04/2024 10:15 EST Ancillary Procedure [facility] Cardiology - [address] [place] [address] 05/04/2024 11:30 EST Appointment [facility] Hematology & Oncology - [address] [phone] 05/04/2024 12:00 EST Appointment [facility] Hematology & Oncology [address] 630461 06/12/2024 13:00 EST Appointment [facility] Radiology CT - [address] [id number] documented as of this encounter Visit Diagnoses Not on filedocumented in this encounter Care Teams Aoc Director Intelligence Officer Relationship Specialty Start Date End Date Linda Blancas MD [facility] [address] [place] [address] PCP - General 01/06/11 Adolfo Carreno MD [address] [place] [address] [phone] General Surgery 04/26/19 Augustina Colin MD PhD [address] [place] [phone] Medical Oncology 04/26/19 documented as of this encounter
--- OUTSIDE RECORDS SUMMARY | 2024-03-20 14:43 | XMS_ITS | Encounter Summary ---
Author Organization [facility] Address [address] [place] [address] Care Team Providers Care Solutions Sales Consultant Name Role Phone Linda Blancas MD Primary Care Provider [phone] Adolfo Carreno MD Unavailable [phone] Auugstina Colin MD PhD Unavailable Unavailable Reason for Visit * Reason Onset Date Comments Returning Call 08/02/2023 Encounter Details Date Type Department Care Team (Late st Contact Info) Description 08/02/2023 Telephone [facility] Cancer Center Hematology & Oncology - [facility] [address], [place] 2[address] Augustina Colin, PhD Returning Call Social History Tobacco Use Types [...] Encounter - Kaylah Stevens RN - 08/02/2023 1631 EST See other encounter. * Telephone Encounter - Paola Olsen - 08/02/2023 1445 EST Patient returning call to the nurse documented in this encounter Plan of Treatment Upcoming Encounters Date Type Department Care Team (Late st Contact Info) Description 04/02/2024 10:30 EDT Appointment [facility] Interventional Radiology Unit [address] [place] [address] [phone] 04/02/2024 15:15 EDT Office Visit [facility] Surgical Oncology - [address] [phone] Adolfo Carreno MD 111 [facility], [facility] [address] [place] [phone] 04/05/2024 9:30 EDT Telemedicine [facility] - [facility] Palliative Care Services [address], [place] 459[address] Chichi Woods MD [address] [phone] 04/11/2024 15:00 EDT Telemedicine [facility] Hematology & Oncology - [facility] [address], [place] [phone] Alisson Carreon MD [address] [place] [address], [facility] [address] [place] [phone] 04/13/2024 13:30 EDT Appointment [facility] Hematology & Oncology - [address] [phone] 04/13/2024 14:00 EDT Appointment [facility] Hematology & Oncology - [address] 975691 04/16/2024 10:00 EST Telemedicine [facility] - [facility] Palliative Care Services [address] [place] [address] [phone] Chichi Woods MD [address] [place] [address], [address] [phone] 04/24/2024 9:[address] [facility] Radiology CT Outpatient - [address] [phone] 04/24/2024 11:00 EST Appointment [facility] Breast Imaging - [facility] S [address] 840781 04/27/2024 12:00 EST Appointment [facility] Hematology & Oncology - [address] [phone] 05/02/2024 15:00 EST Telemedicine [facility] Hematology & Oncology - [address] 305391 Alisson Carreon MD [address] [place] [address], [facility] [address] [place] [phone] 05/04/2024 10:15 EST Ancillary Procedure [facility] Cardiology - [address] [place], [place] [phone] 05/04/2024 11:30 EST Appointment [facility] Cancer Center Hematology & Oncology - [address] [address] 05/04/2024 12:00 EST Appointment [facility] Hematology & Oncology - [address] [address] 06/12/2024 13:00 EST Appointment [facility] Radiology CT - [address] [address] documented as of this encounter Visit Diagnoses Not on filedocumented in this encounter Care Teams Solutions Sales Consultant Relationship Specialty Start Date End Date Linda Blancas MD [facility] [address] [place] [address] PCP - General 01/06/11 Adolfo Carreno MD [address] [place] [phone] General Surgery 04/26/19 Augustina Colin MD PhD [address] [place] [phone] Medical Oncology 04/26/19 documented as of this encounter
--- OUTSIDE RECORDS SUMMARY | 2024-03-20 14:43 | XMS_ITS | Encounter Summary ---
Author Organization [facility] Address [address] [place] [address] Care Team Providers Care Disc Recordist Name Role Phone Linda Blancas MD Primary Care Provider [phone] Adolfo Carreno MD Unavailable [phone] Augustina Colin MD PhD Unavailable Unavailable Reason for Visit * Reason Comments Follow-up Encounter Details Date Type Department Care Team (Late st Contact Info) Description 07/12/2023 13:30 EST Office Visit [facility] Cancer Center Hematology & Oncology - Main [place] [address] [place], [place] [phone] Augustina Colin, MD PhD Malignant neoplasm of right female [...] Reading Time Taken Comments Blood Pressure 140/63 07/12/2023 1254 EST Pulse 84 07/12/2023 1254 EST manaul, regular Temperature 36.4 ??C (97.5 ??F) 07/12/2023 1254 EST Respiratory Rate 16 07/12/2023 1254 EST Oxygen Saturation 100% 07/12/2023 1254 EST Inhaled Oxygen Concentration - - Weight [...] Notes * Augustina Colin MD PhD - 07/12/2023 1330 EST REASON FOR OFFICE VISIT: Discussion of side effects and biopsy results PROBLEM LIST: 1. 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 a. Ultrasound performed in [place] identifying an irregular heterogeneous soft tissue mass measuring 1.2 x 1.2 x 1.5 cm. b. 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 HER-2 1+ by IHC. ANNE MARIE revealed [...] breast tumor 07/07/17 and placement of tissue custodian supervisor. 1.9 cm tumor at time ofsurgery, [...] consistent with metastatic breast cancer; ER+ >90%, MT < 5% 2. Restaging scans: - MRI Abdomen 05/20/23 [...] Ms Morales presents to clinic to discuss biopsy results. She had biopsy early Jun that was consistent with breast cancer. She also had a nuclear bone scan which indicated progression. She has continued on capecitbine. She has some hand/foot redness minimal cracking. She uses urea cream and will start diclofenac. No diarrhea. She has also been experiencing constipation. ROS: A 10 point review of systems [...] hours. one week on, one week off gabapentin (NEURONTIN) 100 mg capsule Take 2 Caps by mouth 2 times daily. (Patient taking differently: Take 3 Capsules by mouth 2 times daily.) gabapentin (NEURONTIN) 600 mg tablet Take 1 Tablet by mouth every evening. ibuprofen (MOTRIN) 200 mg tablet Take 2 Tablets by mouth as needed. MULTIVITS W-CA,FE,OTHER MIN (WOMEN'S DAILY FORMULA ORAL) Take by mouth daily. mv-mn/C/glutamin/lysin/higg145 (AIRBORNE, ASCORBATE SODIUM, ORAL) Take by mouth [...] visit. Latest known visit with results is: Hospital Outpatient Visit on 06/16/2023 Component Date Value Ref Range Status Note to Patient 06/16/2023 Final Value:This result contains rich text formatting which cannot be displayed here. Final Diagnosis 06/16/2023 Final Value:This result contains rich text formatting which cannot be displayed here. Diagnosis Comment 06/16/2023 Final Value:This result contains rich text formatting which cannot be displayed here. Attestation 06/16/2023 Final Value:This result contains rich text formatting which cannot be displayed here. Clinical History 06/16/2023 Final Value:This result contains rich text formatting which cannot be displayed here. Gross Description 06/16/2023 Final Value:This result contains rich text formatting which cannot be displayed here. Performing Lab 06/16/2023 Final Value:This result contains rich text formatting which cannot be displayed here. ASSESSMENT: Ms Bernstein is a 62-year-old female with metastatic breast cancer. She has been receiving capecitabine. She has some progression with an increase in size of a lung nodule that is biopsy positive for BC, in the liver and in previously identified bone mets. The lung biopsy was equivocal for HER2. She has been HER 2 negative in the past. We are waiting on results from [place] She has an ESR1 mutation. She has had faslodex in 2019. At this point if she is HER2 negative. we would proceed with a trial of Elacestrant 345 mg daily . Elacestrant is associated with GI issues, hotflashes, hyponatremia, anemia, increased LFTs, fatigue. Continue Zolendronic acid every 3 mos for now. She takes a vitamin D supplement. PLAN: 1. Initiate Elacestrant 345 mg daily if HER2 negative 2. Zoledronic acid q 3mo, next due Jul 2023; Continued Vit D supplementation 3. Continued follow-up with Dr. Moya 4. Consider repeat CT C/A/P end of September 2023 5. FUR 4-6 weeks to discuss side effects documented in this encounter Plan of Treatment Upcoming Encounters Date Type Department Care Team (Late st Contact Info) Description 04/02/2024 10:30 EDT Appointment [facility] Interventional Radiology Unit [address] [place] [address] [phone] 04/02/2024 15:15 EDT Office Visit [facility] Surgical Oncology - [address] [phone] Adolfo Carreno MD [address] [place] [address], [facility] [address] [place] [phone] 04/05/2024 9:30 EDT Telemedicine [facility] - [facility] Palliative Care Services [address] [place] [address] [phone] Chichi Woods MD [address] [place] [address], [address] [phone] 04/11/2024 15:00 EDT Telemedicine [facility] Hematology & Oncology - [address] [phone] Alisson Carreon MD [address] [place] [address], [facility] [address] [place] [phone] 04/13/2024 13:30 EDT Appointment [facility] Hematology & Oncology - [address] [address] 04/13/2024 14:00 EDT Appointment [facility] Hematology & Oncology [address] 837171 04/16/2024 10:00 EST Telemedicine [facility] - [facility] Palliative Care Services [address] [place] [address] [phone] Chichi Woods MD [address] [place] [address], [address] [phone] 04/24/2024 9:00 EST Appointment [facility] Radiology CT Outpatient - [address] 840741 04/24/2024 11:00 EST Appointment [facility] Breast Imaging - [facility] [place] [address] [place], [place] [phone] 04/27/2024 12:00 EST Appointment [facility] Hematology & Oncology [address] 808161 05/02/2024 15:00 EST Telemedicine [facility] Hematology & Oncology [address] [phone] Alisson Carreon MD [address] [place] [address], [facility], Level [address] [place] [phone] 05/04/2024 10:15 EST Ancillary Procedure [facility] Cardiology - [place] [address] 05/04/2024 11:30 EST Appointment [facility] Hematology & Oncology [address] [phone] 05/04/2024 12:00 EST Appointment [facility] Hematology & Oncology - [address] [phone] 06/12/2024 13:00 [facility] Radiology CT - [address] 575491 documented as of this encounter Visit Diagnoses Diagnosis Malignant neoplasm of right female breast, unspecified estrogen receptor status, unspecified site of breast ([facility])- Primary documented in this encounter Care Teams Disc Recordist Relationship Specialty Start Date End Date Linda Blancas MD [facility] [address] [place], [place] [address] PCP - General 01/06/11 Adolfo Carreno MD [address] [place] [address] 2 [place] [phone] General Surgery 04/26/19 Augustina Colin MD PhD [address] [place] [address] 2 [place] [phone] Medical Oncology 04/26/19 documented as of this encounter
--- OUTSIDE RECORDS SUMMARY | 2024-03-20 14:43 | XMS_ITS | Encounter Summary ---
Author Organization [facility] Address [address] [place] [address] Care Team Providers Care Anode Rebuilder Name Role Phone Linda Blancas MD Primary Care Provider [phone] Adolfo Carreno MD Unavailable [phone] Augustina Colin MD PhD Unavailable Unavailable Reason for Visit * Reason Onset Date Comments Social Work 08/03/2023 Encounter Details Date Type Department Care Team (Late st Contact Info) Description 08/03/2023 Telephone [facility] Hematology & Oncology - Main [place] [address] [place], [place] [phone] Trinh Posey Social Work Social History Tobacco Use Types Packs/Day Years [...] * Telephone Encounter - Trinh Posey - 08/03/2023 1524 EST Referral from Kaylah Stevens RN- Looking for your assistance, this pt just called me. We wanted her to start on elacestrant but the pharmacy contacted her and her copay would be over $3,000. Definitely not feasible for her. She wants help with assistance programs, she has Medicare Part D coverage. Can you help? Connected with pt and introduced my role and services and reason for calling: free drug. I made her aware of manager qa free drug option based on financial eligibility. [employer] offers assistance and I found an application online. Pt has already filled out her portion and will email it to me. I will work with RN and Dr. Colin to fill out the HCP pages and will fax to [employer] Plan- Pt emailed her portion Requested a hard copy script for Elacestrant from RN Asked pt to send me a copy of her supplemental insurance and Well care cards documented in this encounter Plan of Treatment Upcoming Encounters Date Type Department Care Team (Late st Contact Info) Description 04/02/2024 10:30 EDT Appointment [facility] Interventional Radiology Unit [address] [place], [place] 580711 04/02/2024 15:15 EDT Office Visit [facility] Surgical Oncology - [address] 648401 Adolfo Carreno MD 111 [facility], Level 2 [place] [phone] 04/05/2024 9:30 EDT Telemedicine [facility] Palliative Care Services [address] [place] [address] [phone] Chichi Woods MD [address] [place] [address] [phone] 04/11/2024 15:00 EDT Telemedicine [facility] Hematology & Oncology - [address] 364241 Alisson Carreon MD [address] [place] [address], Level [address] [place] [phone] 04/13/2024 13:30 EDT Appointment [facility] Hematology & Oncology [address] [phone] 04/13/2024 14:00 EDT Appointment [facility] Hematology & Oncology [address] 601661 04/16/2024 10:00 EST Telemedicine [facility] Palliative Care Services [address] [place] [address] [phone] Chichi Woods MD [address] [place] [address] [phone] 04/24/2024 9:00 EST Appointment [facility] Radiology CT Outpatient - [address] [address] 04/24/2024 11:00 EST Appointment [facility] Breast Imaging - [address] [phone] 04/27/2024 12:00 EST Appointment [facility] Hematology & Oncology - [address] 120751 05/02/2024 15:00 EST Telemedicine [facility] Hematology & Oncology - [address] [phone] Alisson Carreon MD [address] [place] [address] [phone] 05/04/2024 10:15 EST Ancillary Procedure [facility] Cardiology - [address] [place], [place] [phone] 05/04/2024 11:30 EST Appointment [facility] Hematology & Oncology [address] 319101 05/04/2024 12:00 EST Appointment [facility] Hematology & Oncology [address] 193821 06/12/2024 13:00 EST Appointment [facility] Radiology CT - [address] [phone] documented as of this encounter Visit Diagnoses Not on filedocumented in this encounter Care Teams Anode Rebuilder Relationship Specialty Start Date End Date Linda Blancas MD [facility] [address] [place] [address] PCP - General 01/06/11 Adolfo Carreno MD [address] [place] [phone] General Surgery 04/26/19 Augustina Colin MD PhD [address] [place] [phone] Medical Oncology 04/26/19 documented as of this encounter
--- OUTSIDE RECORDS SUMMARY | 2024-03-20 14:43 | XMS_ITS | Encounter Summary ---
Author Organization [facility] Address [address] [place] [address] Care Team Providers Care Tobacco Cloth Reclaimer Name Role Phone Linda Blancas MD Primary Care Provider [phone] Adolfo Carreno MD Unavailable [phone] Augustina Colin MD PhD Unavailable Unavailable Reason for Visit * Reason Onset Date Comments Prior Auth, Medication 07/28/2023 Orserdu Encounter Details Date Type Department Care Team (Late st Contact Info) Description 07/28/2023 Telephone [facility] Cancer Center Hematology & Oncology - Main [place] [address] [place], [place] 224[address] Augustina Colin, PhD Prior Auth, Medication (Orserdu) Social History Tobacco Use Types Packs/Day Years [...] tablet Take 345 mg by mouth daily. 30 Tablet 2 08/01/2023 08/04/2023 documented in this encounter Miscellaneous Notes * Telephone Encounter - Marian Rodarte RN - 08/01/2023 1136 EST Script pended to DR. Colin * Telephone Encounter - Kaylah Costello - 08/01/2023 0940 EST Prior Authorization Approval Medication: Orserdu 345mg qd Insurance Name:[employer] Insurance Type: Medicare Part D Approval Dates: 07/28/2023 until further notice Authorization Number: [id number] Required Pharmacy: No requirement [facility] able to fill?: NO limited distribution Additional Info/Other Notes: * Telephone Encounter - Anamika Beltran - 07/28/2023 1215 EST Prior Authorization Submission Process - Urgent New Medication: Orserdu 345mg qd (Name, Strength, Frequency) Insurance: Express [employer] Insurance Type: Medicare Part D Date [place] Request Received: 07/28/2023 [place] Submission Date: 07/28/2023 Derick: [id number] Notes: Submitted by: LT Phone: [phone] documented in this encounter Plan of Treatment Upcoming Encounters Date Type Department Care Team (Late st Contact Info) Description 04/02/2024 10:30 EDT Appointment [facility] Interventional Radiology Unit [address] [place] [address] 04/02/2024 15:15 EDT Office Visit [facility] Surgical Oncology - [address] 249301 Adolfo Carreno MD [address] [place] [address] [phone] 04/05/2024 9:30 EDT Telemedicine [facility] Palliative Care Services [address] [place] [address] 133561 Chichi Woods MD [address] [place] [address] [phone] 04/11/2024 15:00 EDT Telemedicine [facility] Hematology & Oncology - [address] 142281 Alisson Carreon MD [address] [place] [address] [phone] 04/13/2024 13:30 EDT Appointment [facility] Hematology & Oncology - [address] 067421 04/13/2024 14:00 EDT Appointment [facility] Hematology & Oncology - [address] [address] 04/16/2024 10:00 EST Telemedicine [facility] Palliative Care Services [address] [place] [address] [phone] Chichi Woods MD [address] [place] [address] [phone] 04/24/2024 9:00 EST Appointment [facility] Radiology CT Outpatient - [address] [address] 04/24/2024 11:00 EST Appointment [facility] Breast Imaging - [facility] [address] [place] [address] [place] [address] 04/27/2024 12:00 EST Appointment [facility] Hematology & Oncology - [address] [address] 05/02/2024 15:00 EST Telemedicine [facility] Hematology & Oncology - [address] [address] Alisson Carreon MD [address] [place] [address], Level [address] [place] [phone] 05/04/2024 10:15 EST Ancillary Procedure [facility] Cardiology - [address] [place] [address] 05/04/2024 11:30 EST Appointment [facility] Hematology & Oncology - [address] [phone] 05/04/2024 12:00 EST Appointment [facility] Hematology & Oncology [address] [address] 06/12/2024 13:00 EST Appointment [facility] Radiology CT - [address] [phone] documented as of this encounter Visit Diagnoses Not on filedocumented in this encounter Additional Health Concerns Infection Onset Date Last Indicated Resolved Time R/O COVID-19 12/12/2023 12/12/2023 12/12/2023 15:3 5 EDT R/O COVID-19 01/08/2024 01/08/2024 01/08/2024 18:2 6 EDT R/O COVID-19 01/16/2024 01/16/2024 01/16/2024 17:5 0 EDT documented as of this encounter Care Teams Tobacco Cloth Reclaimer Relationship Specialty Start Date End Date Linda Blancas MD [facility] [address] [place] [address] PCP - General 01/06/11 Adolfo Carreno MD [address] [place] [address], [facility] 2 [place] [phone] General Surgery 04/26/19 Augustina Colin MD PhD [address] [place] [address], [facility] 2 [place] [phone] Medical Oncology 04/26/19 documented as of this encounter
--- OUTSIDE RECORDS SUMMARY | 2024-03-20 14:44 | XMS_ITS | Encounter Summary ---
Author Organization [facility] Address [address] [place] [address] Care Team Providers Care Time Motion Analyst Name Role Phone Linda Blancas MD Primary Care Provider [phone] Adolfo Carreno MD Unavailable [phone] Augustina Colin MD PhD Unavailable Unavailable Reason for Visit * Episode Based Medications (Routine) - Closed Specialty Diagnoses / Procedures Referred By Doug hearn Referred To Contact Diagnoses Osteopenia of necks of both femurs Augustina Colin MD PhD [facility] Ep2 Infusion [address] [place] [address] Referral ID Status Reason Start Date Expiration Date Visits Re quested Visits Authorized [id number] Closed 03/15/2022 7 17 Encounter Details Date Type Department Care Team (Latest Contact Info) Description 05/27/2023 9:06 EST - 05/27/2023 12:08 EST Hospital Encounter [facility] [address] [place] [address] Osteopenia of necks of both femurs (Primary [...] this encounter Discharge Instructions * Discharge Instructions* Tracey Ballard RN - 05/27/2023 14:34 EST Zoledronate (Zoledronic Acid) Reclast 5 mg/Zometa 4 mg Zoledronate Discharge Instructions: You received a Zoledronic Acid infusion today 05/27/23 Signs and symptoms of an allergic reaction include: - Difficulty breathing, wheezing - Swelling of face, lips, tongue, or throat. - Chest tightness - Fever - Rash, Itching - Severe nausea or vomiting - Chest pain or pressure Please notify your health care provider or seek medical attention if you have any signs of an allergic reaction. Also report any new adverse symptoms to your physician immediately: - Occasionally patients experience a flu-like syndrome consisting of fever, chills, bone pain and muscle aches. This may last up to 72 hours. - GI reactions such as nausea and vomiting have been reported. - Local reactions at the infusion site, such as redness or swelling are observed infrequently. Apply a warm moist compress intermittently if this occurs. - Continue your supplemental Calcium and Vitamin D unless your Provider advises otherwise. - Stay well hydrated with water. Increase hydration over the next 2-3 days after the infusion. - Notify your Provider prior to any dental surgery. - Regular dental exams are recommended. - Notify your Provider of any jaw or thigh pain. documented in this encounter Medications at Time [...] times daily. 360 Cap 3 08/16/2012 12/14/2023 ibuprofen (MOTRIN) 200 mg tablet Take 2 Tablets by mouth as needed. 12/07/2023 mv-mn/C/glutamin/lysin/h [id number] ([place], ASCORBATE SODIUM, ORAL) Take by mouth [...] documented in this encounter Progress Notes * Tracey Ballard, SHELLEY - 05/27/2023 1524 EST Sunshine Bueno Ginjonnabertha arrived to [facility] for zometa infusion related to ICD 10 c50.919. Identification verified verbally and on patient wristband. Signs and symptoms of adverse infusion reaction reviewed with patient. Call light within reach. PIV was placed by RN per protocol. Patient tolerated well. Left in place for CT scan with contrast today 1445. Main Medication and dose: Zometa 4 mg IV 1415 Infusion started. 1435 Infusion completed. Patient tolerated without s/s of adverse reaction. Patient Education Topic: Zometa Method: Handout Taught to: Patient Barriers: None Outcomes: verbalized understanding Patient educated to call if complications or any concerns any time. Reminded of over the counter medications (ie benadryl and tylenol) to use at home for side effects or sensitivity/ allergic reaction and to call clinic and/or 911 for difficulty breathing and/or chest pain. Discharged home in stable condition. documented in this encounter Plan of Treatment Upcoming Encounters Date Type Department Care Team (Late st Contact Info) Description 04/02/2024 10:30 EDT Appointment [facility] Interventional Radiology Unit [address] [place] [address] [phone] 04/02/2024 15:15 EDT Office Visit [facility] Surgical Oncology - [address] [phone] Adolfo Carreno MD [address] [place] [address], Level [address] [place] [phone] 04/05/2024 9:30 EDT Telemedicine [facility] - [facility] Palliative Care Services [address] [place] [address] [phone] Chichi Woods MD [address] [place] [address], [place] [address] [place] [phone] 04/11/2024 15:[address] [facility] Hematology & Oncology - [address] [phone] Alisson Carreon MD [address] [place] [address], [address] [place] [phone] 04/13/2024 13:[address] [facility] Hematology & Oncology [address] [id number] 04/13/2024 14:[address] Hematology & Oncology - [address] [phone] 04/16/2024 10:00 EST Telemedicine [facility] - [facility] [address] [place] [address] [phone] Chichi Woods MD [address] [place] [address], [place] [address] [place] [phone] 04/24/2024 9:00 EST Appointment [facility] Radiology CT Outpatient - [address] [id number] 04/24/2024 11:00 EST Appointment [facility] Breast Imaging - [facility] S [address] [phone] 04/27/2024 12:[address] [facility] Hematology & Oncology - [address] [id number] 05/02/2024 15:[address] [facility] Hematology & Oncology - [address] [phone] Alisson Carreon MD [address] [place] [address], [address] [place] [phone] 05/04/2024 10:15 EST Ancillary Procedure [facility] Cardiology - [address] [place], [place] [phone] 05/04/2024 11:30 EST Appointment [facility] Hematology & Oncology - [address] [address] 05/04/2024 12:[address] Hematology & Oncology [address] [address] 06/12/2024 13:00 EST Appointment [facility] Radiology CT - [address] [address] documented as of this encounter Visit Diagnoses Diagnosis Osteopenia of necks of both femurs- Primary documented in this encounter Administered Medications Inactive Administered Medications - up to 3 most recent administrations Medication Order MAR Action Action Date Dose Rate Site sodium chloride 0.9 % (NS) infusion at 100 mL/hr, 250 mL, intravenous, CONTINUOUS, Starting on Tue05/27/23 at 1000, Until 05/28/23 at 1414, Routine New Bag 05/27/2023 14:15 EST 250 mL 100 mL/hr zoledronic acid (ZOMETA) 4 mg/100 mL IVPB 4 mg 4 mg, intravenous, Administer over 20 Minutes, NOW X1, 1 dose, On Tue05/27/23 at 1000, Routine New Bag 05/27/2023 14:15 EST 4 mg documented in this encounter Orders Medications Ordered That Vj ht Not Have Been Administered Count Last Ordered Date First Ordered Date diphenhydrAMINE (BENADRYL) injection 50 mg 1 05/27/2023 EPINEPHrine (ADRENALIN) injection 0.3 mg 1 05/27/2023 methylPREDNISolone sod suc(P F) (SOLU-MEDROL) injection 40 mg 1 05/27/2023 sodium chloride 0.9 % (flush) flush 20 mL 1 05/27/2023 Nursing Count Last Ordered Date First Orde red Date INFORMED CONSENT 1 05/27/2023 documented in this encounter Care Teams Time Motion Analyst Relationship Specialty Start Date End Date Linda Blancas MD [facility] [address] [place], [place] 127[address] PCP - General 01/06/11 Adolfo Carreno MD [address] [place] [address], [facility], [address] [place] [phone] General Surgery 04/26/19 Augustina Colin MD PhD [address] [place] [address], [facility] [address] [place] [phone] Medical Oncology 04/26/19 documented as of this encounter
--- OUTSIDE RECORDS SUMMARY | 2024-03-20 14:44 | XMS_ITS | Encounter Summary ---
Author Organization [facility] Address [address] [place] [address] Care Team Providers Care Senior Insight Manager Name Role Phone Linda Blancas MD Primary Care Provider Adolfo Carreno MD Unavailable [phone] Augustina Colin MD PhD Unavailable Unavailable Encounter Details Date Type Department Care Team (Late st Contact Info) Description 05/27/2023 13:00 EST Phlebotomy Only [facility] ED Center 2 Phlebotomy [address] [place], [place] 484[address] Chiropractic Doctor, Acc Phlebotomy Primary malignant neoplasm of breast with metastasis [...] Contact Info) Description 04/02/2024 10:30 EDT Appointment [facility] Interventional Radiology Unit [address] [place] [address] [phone] 04/02/2024 15:15 EDT Office Visit [facility] Surgical Oncology - [address] [phone] Adolfo Carreno MD [address] [place] [address] 2 [place] [phone] 04/05/2024 9:30 EDT Telemedicine [facility] - [facility] Palliative Care Services [address] [place] [address] [phone] Chichi Woods MD [address] [place] [phone] 04/11/2024 15:00 EDT Telemedicine [facility] Hematology & Oncology - [address] [phone] Alisson Carreon MD [address] [place] [address] 2 [place] [phone] 04/13/2024 13:30 EDT Appointment [facility] Hematology & Oncology [address] [phone] 04/13/2024 14:00 EDT Appointment [facility] Hematology & Oncology - [address] [phone] 04/16/2024 10:00 EST Telemedicine [facility] - [facility] Palliative Care Services [address] [place] [address] [phone] Chichi Woods MD [address] [place] [address], [address] [phone] 04/24/2024 9:00 EST Appointment [facility] Radiology CT Outpatient - [address] [id number] 04/24/2024 11:00 EST Appointment [facility] Breast Imaging - [facility] S [address] [phone] 04/27/2024 12:00 EST Appointment [facility] Hematology & Oncology - [address] [phone] 05/02/2024 15:00 EST Telemedicine [facility] Hematology & Oncology - [address] [phone] Alisson Carreon MD [address] [place] [address], [address] [place] [phone] 05/04/2024 10:15 EST Ancillary Procedure [facility] Cardiology [place] [place] [address] 05/04/2024 11:30 EST Appointment [facility] Hematology & Oncology - [address] [phone] 05/04/2024 12:00 EST Appointment [facility] Hematology & Oncology - [address] [address] 06/12/2024 13:00 EST Appointment [facility] Radiology CT - [address] [phone] documented as of this encounter Procedures Procedure Name Priority Date/Time Associated Diagnosis Comments CA 27.29 STAT 05/27/2023 13:07 EST Malignant neoplasm of right female breast, unspecified estrogen receptor status, unspecified site of breast (HCC-CMS) COMPLETE BLOOD COUNT AND DIFFERENTIAL STAT 05/27/2023 13:07 EST Primary malignant neoplasm of breast with metastasis (HCC-CMS) COMPREHENSIVE METABOLIC PANEL (CMP) STAT 05/27/2023 13:07 EST Primary malignant neoplasm of breast with metastasis (HCC-CMS) documented in this encounter Results * (ABNORMAL) CA 27.29 (05/27/2023 13:07 EST) CA 27.29 199.5(H) <38.0 U/mL 05/27/2023 14:34 EST [facility] Comment: NOTE: Serum CA 27.29 concentration should not be interpreted as absolute evidence for the presence or absence of malignant disease. Assayed on Siemens ADVIA Centaur XPT using chemiluminescent technology. ??Values obtained by using different assay methods cannot be used interchangeably. Blood VENOUS BLOOD / Unknown Venipuncture / Unknown 05/27/2023 13:07 EST 05/27/2023 13:14 EST Augustina Colin MD PhD CHEMISTRY & BLOOD GA S ORDERABLES [facility] [address] [place] [address] * (ABNORMAL) COMPREHENSIVE METABOLIC PANEL (CMP) (05/27/2023 13:07 EST) Sodium 143 136 - 145 mmol/L 05/27/2023 13:32 EST [facility] Potassium 5.0 3.5 - 5.0 mmol/L 05/27/2023 13:32 EST [facility] Chloride 110 96 - 110 mmol/L 05/27/2023 13:32 EST [facility] CO2 Total 28 22 - 32 mmol/L 05/27/2023 13:32 [facility] Glucose 80 70 - 99 mg/dl 05/27/2023 13:32 [facility] BUN 16 10 - 26 mg/dL 05/27/2023 13:32 [facility] Creatinine 0.64 0.52 - 1.04 mg/dL 05/27/2023 13:32 [facility] eGFR 100 >60 mL/min/1.7 3m2 05/27/2023 13:32 [facility] Total Protein 6.7 6.3 - 8.2 g/dL 05/27/2023 13:32 [facility] Albumin 3.6 3.4 - 4.9 g/dL 05/27/2023 13:32 [facility] Alkaline Phosphatase 163(H) 38 - 126 U/L 05/27/2023 13:32 [facility] AST 65(H) 15 - 46 U/L 05/27/2023 13:32 [facility] ALT 29 <35 U/L 05/27/2023 13:32 [facility] Bilirubin, Total 1.2 <1.4 mg/dL 05/27/20 13:32 [facility] Calcium 9.1 8.5 - 10.5 mg/dL 05/27/2023 13:32 [facility] Albumin/Globulin Ratio 1.2 1.0 - 2.5 g/dL 05/27/2023 13:32 [facility] Anion Gap 5 5 - 14 mmol/L 05/27/2023 13:32 [facility] Blood VENOUS BLOOD / Unknown Venipuncture / Unknown 05/27/2023 13:07 EST 05/27/2023 13:14 EST Augustina Colin MD PhD CHEMISTRY & BLOOD GA S ORDERABLES [facility] [address] [place] [address] * (ABNORMAL) COMPLETE BLOOD COUNT AND DIFFERENTIAL (05/27/2023 13:07 EST) WBC 5.84 4.00 - 12.40 K/cmm 05/27/2023 13:31 [facility] RBC 3.48(L) 3.86 - 5.04 M/cmm 05/27/2023 13:31 [facility] Hemoglobin 12.8 11.6 - 15.2 g/dL 05/27/2023 13:31 [facility] HCT 38.3 34.9 - 44.4 % 05/27/2023 13:31 [facility] MCV 110(H) 81 - 98 fL 05/27/2023 13:31 [facility] MCH 36.8(H) 26.7 - 33.3 pg 05/27/2023 13:31 [facility] MCHC 33.4 32.1 - 35.9 g/dL 05/27/2023 13:31 [facility] RDW-CV 16.7(H) <14.7 % 05/27/2023 13:31 [facility] RDW-SD 66.7(H) <50.4 fl 05/27/2023 13:31 [facility] PLT 132(L) 141 - 377 K/cmm 05/27/2023 13:31 [facility] MPV 10.4 9.5 - 12.7 fL 05/27/2023 13:31 [facility] % Neutrophils 61.4 % 05/27/2023 13:31 [facility] % Lymphocytes 24.1 % 05/27/2023 13:31 [facility] % Monocytes 11.8 % 05/27/2023 13:31 [facility] % Eosinophils 1.7 % 05/27/2023 13:31 [facility] % Basophils 0.7 % 05/27/2023 13:31 [facility] % Immature Grans 0.3 % 05/27/20 13:31 [facility] Absolute Neutrophils 3.58 2.20 - 8.85 K/cmm 05/27/2023 13:31 [facility] Absolute Lymphocytes 1.41 1.09 - 3.30 K/cmm 05/27/2023 13:31 [facility] Absolute Monocytes 0.69 0.10 - 0.80 K/cmm 05/27/2023 13:31 [facility] Absolute Eosinophils 0.10 0.03 - 0.61 K/cmm 05/27/2023 13:31 [facility] ABS Basophils 0.04 0.01 - 0.11 K/cmm 05/27/2023 13:31 [facility] Absolute Immature Grans 0.02 0.00 - 0.06 K/cmm 05/27/2023 13:31 [facility] Type of Differential: Auto 05/27/2023 13:31 [facility] Blood VENOUS BLOOD / Unknown Venipuncture / Unknown 05/27/2023 13:07 EST 05/27/2023 13:13 EST Augustina Colin MD PhD PACKAGES & DNA PROBE ORDERABLES Performing Organization Address City/State/[facility] Co de Phone Number [facility] [address] [place] [address] documented in this encounter Visit Diagnoses Diagnosis Primary malignant neoplasm of breast with metastasis (HCC-CMS) Malignant neoplasm of right female breast, unspecified estrogen receptor status, unspecified site of breast (HCC-CMS) documented in this encounter Care Teams Senior Insight Manager Relationship Specialty Start Date End Date Linda Blancas MD [facility] [address] [place] [address] PCP - General 01/06/11 Adolfo Carreno MD [address] [place] [phone] General Surgery 04/26/19 Augustina Colin MD PhD [address] [place] [phone] Medical Oncology 04/26/19 documented as of this encounter
--- OUTSIDE RECORDS SUMMARY | 2024-03-20 14:44 | XMS_ITS | Encounter Summary ---
Author Organization [facility] Address [address] [place] [address] Care Team Providers Care Lead Software Architect Name Role Phone Linda Blancas MD Primary Care Provider [phone] Adolfo Carreno MD Unavailable [phone] Augustina Colin MD PhD Unavailable Unavailable Reason for Referral * Radiology Services (Routine/Next Available) - Authorized Specialty Diagnoses / Procedures Referred By Contac t Referred To Contact Radiology Diagnoses Metastases to the liver (HCC-CMS) Procedures MR ABDOMEN W David Joseph MD [address] [place] [phone] [facility] Referral ID Status Reason Start Date Expiration Date V isits Requested Visits Authorized [id number] Authorized 05/13/2023 11/09/2023 1 1 Reason for Visit * Radiology Services (Routine/Next Available) - Authorized Specialty Diagnoses / Procedures Referred By Contdayanna t Referred To Contact Radiology Diagnoses Metastases to the liver (HCC-CMS) Procedures MR ABDOMEN W David Joseph MD [address] [place] [phone] [facility] Referral ID Status Reason Start Date Expiration Date V isits Requested Visits Authorized [id number] Authorized 05/13/2023 11/09/2023 1 1 Encounter Details Date Type Department Care Team (Latest Contact Info) Description 05/20/2023 15:59 EST - 05/20/2023 23:59 EST Hospital Encounter Malorie Mcknight [facility] [address] [place] [address] Metastases to the liver (HCC-CMS) Discharge Disposition: [...] Tablets by mouth as needed. 12/07/2023 mv-mn/C/glutamin/lysin/h [id number] (AIRBORNE, ASCORBATE SODIUM, ORAL) Take by mouth [...] [facility] Interventional Radiology Unit [address] [place] [address] 04/02/2024 15:15 EDT Office Visit [facility] Surgical Oncology - [facility] [address] [phone] Adolfo Carreno MD [address] [facility], Level 2 [place] [address] 04/05/2024 9:30 EDT Telemedicine [facility] Palliative Care Services [address] [place] [address] Chichi Woods MD 111 [facility], [address] [phone] 04/11/2024 15:00 EDT Telemedicine [facility] Hematology & Oncology - [address] [phone] Alisson Carreon MD [address] [place] [address] 2 [place] [phone] 04/13/2024 13:30 EDT Appointment [facility] Hematology & Oncology - [address] [phone] 04/13/2024 14:00 EDT Appointment [facility] Hematology & Oncology [address] [phone] 04/16/2024 10:00 EST Telemedicine [facility] - [facility] Palliative Care Services [address] [place] [phone] Chichi Woods MD [address] [place] [address], [place] [address] [place] [phone] 04/24/2024 9:00 EST Appointment [facility] Radiology CT Outpatient - [address] [phone] 04/24/2024 11:00 EST Appointment [facility] Breast Imaging - [address] 100851 04/27/2024 12:00 EST Appointment [facility] Hematology & Oncology - [address] [phone] 05/02/2024 15:00 EST Telemedicine [facility] Hematology & Oncology - [address] [phone] Alisson Carreon MD [address] [place] [address], [facility] 2 [place] [phone] 05/04/2024 10:15 EST Ancillary Procedure [facility] Cardiology - [address] [place] [address] 05/04/2024 11:30 EST Appointment [facility] Hematology & Oncology [address] 010201 05/04/2024 12:00 EST Appointment [facility] Hematology & Oncology [address] 917241 06/12/2024 13:00 EST Appointment [facility] Radiology CT [address] [phone] documented as of this encounter Procedures Procedure Name Priority Date/Time Associated Diagnosis Comments MR ABDOMEN W WO CONTRAST Routine 05/20/2023 16:34 EST Metastases to the liver (HCC-CMS) documented in this encounter Results * MR ABDOMEN W WO CONTRAST (05/20/2023 16:34 EST) Anatomical Region Laterality Modality Body, Abdomen Magnetic Resonan ce 05/20/2023 17:2 6 EST Impressions 05/20/2023 17:26 EST 1. New and enlarged hepatic metastases. 2. Redemonstrated right iliac bone lesion. 3. Cholelithiasis. 4. Borderline enlarged spleen. [id number] Narrative 05/20/2023 17:26 EST MR ABDOMEN W WO CONTRAST ??05/20/2023 4:00 PM Signs and Symptoms/Comments: Liver metastases; Liver metastases;C78.7:Metastases to the liver (HCC-CMS) Technique: MR sequences of the abdomen were performed with and without IV contrast. Comparison: MRI abdomen 02/28/2023, bone scan 11/25/2022, MRI abdomen 11/13/2022 Findings: Lower chest: No pleural effusion. Breast prostheses. Liver: Interval increase in size of hepatic metastases, example central lesion on series 901 image 132 measuring 2.3 cm, previously 1.8 cm, remeasured in a similar manner. The other dominant lesion in segment 6 on series 901 image 212 measures 2.8 cm, previously 1.8 cm. The additional lesions are also increased in size. A lesion near the dome on series 901 image 52 appears new measuring 9 mm. There are more numerous foci of restricted diffusion throughout the liver as well. Gallbladder: Cholelithiasis Bile ducts: No biliary dilation Spleen: Borderline enlarged Pancreas: Normal Adrenal glands: Normal Kidneys, ureters: Tiny right renal cyst Bowel: No bowel obstruction Peritoneal cavity: Trace perihepatic free fluid Lymph nodes: No lymphadenopathy Vascular: Major vascular structures are patent. Normal caliber abdominal aorta. Abdominal wall: No bowel-containing hernia. Musculoskeletal: Posterior spinal fusion hardware at the lumbar spine. Right iliac bone lesion correlates with lesion seen on prior bone scan, not in the [id number] on the most recent MRI abdomen. No definite change compared with 11/13/2022, but not well compared as these are only visible on the coronal plane. Localizer: No additional finding Procedure Note Kaylyn Nix MD - 05/20/2023 MR ABDOMEN W WO CONTRAST 05/20/2023 4:00 PM Signs and Symptoms/Comments: Liver metastases; Livermetastases;C78.7:Metastases to the liver (HCC-CMS) Technique: MR sequences of the abdomen were performed with and without IVcontrast. Comparison: MRI abdomen 02/28/2023, bone scan 11/25/2022, MRI abdomen11/13/2022 Findings: Lower chest: No pleural effusion. Breast prostheses. Liver: Interval increase in size of hepatic metastases, example centrallesion on series 901 image 132 measuring 2.3 cm, previously 1.8 cm,remeasured in a similar manner. The other dominant lesion in segment 6 onseries 901 image 212 measures 2.8 cm, previously 1.8 cm. The additionallesions are also increased in size. A lesion near the dome on series 901image 52 appears new measuring 9 mm. There are more numerous foci ofrestricted diffusion throughout the liver as well. Gallbladder: Cholelithiasis Bile ducts: No biliary dilation Spleen: Borderline enlarged Pancreas: Normal Adrenal glands: Normal Kidneys, ureters: Tiny right renal cyst Bowel: No bowel obstruction Peritoneal cavity: Trace perihepatic free fluid Lymph nodes: No lymphadenopathy Vascular: Major vascular structures are patent. Normal caliber abdominalaorta. Abdominal wall: No bowel-containing hernia. Musculoskeletal: Posterior spinal fusion hardware at the lumbar spine.Right iliac bone lesion correlates with lesion seen on prior bone scan,not in the [id number] on the most recent MRI abdomen. No definitechange compared with 11/13/2022, but not well compared as these are onlyvisible on the coronal plane. Localizer: No additional finding IMPRESSION 1. New and enlarged hepatic metastases. 2. Redemonstrated right iliac bone lesion. 3. Cholelithiasis. 4. Borderline enlarged spleen. [id number] David Moya MD IMG MRI JAIMEE ACOSTA [...] Once in imaging, 1 dose, Starting on Tue05/20/23 at 1631, Until Tue05/20/23 at 1631, Routine, Imaging Protocol Orders Given 05/20/2023 16:31 EST 12 mL documented in this encounter Orders Medications Ordered That Vj ht Not Have Been Administered Count Last Ordered Date First Ordered Date gadoterate meglumine solution 1-30 mL 1 01/2023 documented in this encounter Care Teams Lead Software Architect Relationship Specialty Start Date End Date Linda Blancas MD [facility] [address] [place] [address] PCP - General 01/06/11 Adolfo Carreno MD [address] [place] [address], [address] [phone] General Surgery 04/26/19 Augustina Colin MD PhD [address] [place] [address] 2 [place] [address] Medical Oncology 04/26/19 documented as of this encounter
--- OUTSIDE RECORDS SUMMARY | 2024-03-20 14:44 | XMS_ITS | Encounter Summary ---
Author Organization [facility] Address [address] [place] [address] Care Team Providers Care Transportation Solutions Manager Name Role Phone Linda Blancas MD Primary Care Provider [phone] Adolfo Carreno MD Unavailable [phone] Augustina Colin MD PhD Unavailable Unavailable Encounter Details Date Type Department Care Team (Latest Contact Info) Description 06/16/2023 13:54 EST - 06/16/2023 23:59 EST Hospital Encounter [facility] Center Radiology [facility] [address] [place], [place] 24[address] Discharge Disposition: Home or Self Care Social [...] status, unspecified site of breast ([facility]-CMS) Take 3 Tablets by mouth every 12 [...] Tablets by mouth as needed. 12/07/2023 mv-mn/C/glutamin/lysin/h [id number] (AIRBORNE, ASCORBATE SODIUM, ORAL) Take by mouth [...] EDT Appointment [facility] Interventional Radiology Unit [address] [place] [phone] 04/02/2024 15:15 EDT Office Visit [facility] Surgical Oncology - [address] 850201 Adolfo Carreno MD [address] [place] [phone] 04/05/2024 9:30 EDT Telemedicine [facility] Palliative Care Services [address] [place] [address] [phone] Chichi Woods MD [address] [place] [phone] 04/11/2024 15:00 EDT Telemedicine [facility] Hematology & Oncology [address] [phone] Alisson Carreon MD [address] [place] [address] [phone] 04/13/2024 13:30 EDT Appointment [facility] Hematology & Oncology [address] 984101 04/13/2024 14:00 EDT Appointment [facility] Hematology & Oncology [address] [phone] 04/16/2024 10:00 EST Telemedicine [facility] Palliative Care Services [address] [place] [address] [phone] Chichi Woods MD [address] [place] [address] [place] [phone] 04/24/2024 9:00 EST Appointment [facility] Radiology CT Outpatient - [address] [id number] 04/24/2024 11:00 EST Appointment [facility] Breast Imaging - [facility] [address] [place] [address] [place], [place] [phone] 04/27/2024 12:00 EST Appointment [facility] Hematology & Oncology [address] 8101[address] 05/02/2024 15:00 EST Telemedicine [facility] Hematology & Oncology [address] [phone] Alisson Carreon MD [address] [place] [address], Level [address] [place] [phone] 05/04/2024 10:15 EST Ancillary Procedure [facility] Cardiology - [address] [place], [place] [phone] 05/04/2024 11:30 EST Appointment [facility] Hematology & Oncology [address] [phone] 05/04/2024 12:00 EST Appointment [facility] Hematology & Oncology [address] [id number] 06/12/2024 13:00 EST Appointment [facility] Radiology CT - [address] [phone] documented as of this encounter Procedures Procedure Name Priority Date/Time Associated Diagnosis Comments XR CHEST 1 VIEW Routine 06/16/2023 14:02 EST documented in this encounter Results * XR CHEST 1 VIEW (06/16/2023 14:02 EST) Anatomical Region Laterality Modality Computed Radiogr aphy 06/16/2023 14:0 9 EST Impressions 06/16/2023 14:09 EST No acute abnormality. [id number] Narrative 06/16/2023 14:09 EST XR CHEST 1 VIEW ??06/16/2023 1:55 PM Clinical History/comments: Left lung tumor biopsy at 1150 AM; Comparison: Chest radiograph July 27, 2005. Chest CT May 27, 2023 Technique: Single frontal view of the chest. Findings: Lungs: Opacity in the lateral left apex corresponding to site of biopsy. Pleura/diaphragms: No pneumothorax. Cardiac and mediastinal contours: Normal. Soft tissues and extrathoracic findings: Right breast surgical clips projecting over the chest. There are bilateral silicone breast prosthesis. Bones: Bilateral old rib fractures. Procedure Note Earl Chase MD - 06/16/2023 XR CHEST 1 VIEW 06/16/2023 1:55 PM Clinical History/comments: Left lung tumor biopsy at 1150 AM; Comparison: Chest radiograph July 27, 2005. Chest CT May Technique: Single frontal view of the chest. Findings: Lungs: Opacity in the lateral left apex corresponding to site of biopsy. Pleura/diaphragms: No pneumothorax. Cardiac and mediastinal contours: Normal. Soft tissues and extrathoracic findings: Right breast surgical clipsprojecting over the chest. There are bilateral silicone breastprosthesis. Bones: Bilateral old rib fractures. IMPRESSION No acute abnormality. [id number] Mustapha Nguyen MD [facility] DIAGNOST IC IMAGING ORDERABLES documented in this encounter Visit Diagnoses Not on filedocumented in this encounter Care Teams Transportation Solutions Manager Relationship Specialty Start Date End Date Linda Blancas MD [facility] [address] [place] [address] PCP - General 01/06/11 Adolfo Carreno MD [address] [place] [address], [facility] 2 [place] [address] General Surgery 04/26/19 Augustina Coiln MD PhD 111 [facility], [facility] 2 [place] [address] Medical Oncology 04/26/19 documented as of this encounter
--- OUTSIDE RECORDS SUMMARY | 2024-03-20 14:44 | XMS_ITS | Encounter Summary ---
Author Organization [facility] Address [address] [place] [address] Care Team Providers Care Auto Appraiser Name Role Phone Linda Blancas MD Primary Care Provider [phone] Adolfo Carreno MD Unavailable [phone] Augustina Colin MD PhD Unavailable Unavailable Encounter Details Date Type Department Care Team (Late st Contact Info) Description 05/20/2023 17:00 EST Phlebotomy Only [facility] ED Center 2 Phlebotomy [address], [place] [id number] [employer], Acc Phlebotomy Metastases to the liver (HCC-CMS) Social History Tobacco Use Types Packs/Day [...] Contact Info) Description 04/02/2024 10:30 EDT Appointment [facility] Interventional Radiology Unit [address] [place] [address] [phone] 04/02/2024 15:15 EDT Office Visit [facility] Surgical Oncology - [address] [phone] Adolfo Carreno MD [address] [place] [phone] 04/05/2024 9:30 EDT Telemedicine [facility] - [facility] Palliative Care Services [address] [place] [address] [phone] Chichi Woods MD [address] [place] [phone] 04/11/2024 15:00 EDT Telemedicine [facility] Hematology & Oncology [address] [phone] Alisson Carreon MD [address] [place] [phone] 04/13/2024 13:30 EDT Appointment [facility] Hematology & Oncology [address] [phone] 04/13/2024 14:00 EDT Appointment [facility] Hematology & Oncology [address] [phone] 04/16/2024 10:00 EST Telemedicine [facility] - [facility] Palliative Care Services [address] [place] [address] [phone] Chichi Woods MD [address] [place] [address], [address] [phone] 04/24/2024 9:00 EST Appointment [facility] Radiology CT Outpatient - [address] [phone] 04/24/2024 11:00 EST Appointment [facility] Breast Imaging - [facility] [address] [place], [place] [address]251 04/27/2024 12:00 EST Appointment [facility] Hematology & Oncology - [address] [phone] 05/02/2024 15:00 EST Telemedicine [facility] Hematology & Oncology - [address] [phone] Alisson Carreon MD [address] [place] [address], Level [address] [place] [phone] 05/04/2024 10:15 EST Ancillary Procedure [facility] Cardiology [place] [place] [address] 05/04/2024 11:30 EST Appointment [facility] Hematology & Oncology - [address] [phone] 05/04/2024 12:00 EST Appointment [facility] Hematology & Oncology [address] [phone] 06/12/2024 13:00 EST Appointment [facility] Radiology CT - [address] [phone] documented as of this encounter Procedures Procedure Name Priority Date/Time Associated Diagnosis Comments PROTIME Routine 05/20/2023 15:32 EST Metastases to the liver (HCC-CMS) COMPLETE BLOOD COUNT Routine 05/20/2023 15:32 EST Metastases to the liver (HCC-CMS) COMPREHENSIVE METABOLIC PANEL (CMP) Routine 05/20/2023 15:32 EST Metastases to the liver (HCC-CMS) documented in this encounter Results * PROTIME (05/20/2023 15:32 EST) Pathologist [facility] I.N.R. 1.1 0.9 - 1.1 Ratio 05/20/2023 15:59 [facility] Pro Time 11.9 9.7 - 12.8 secs 05/20/2023 15:59 [facility] Blood VENOUS BLOOD / Unknown Venipuncture / Unknown 05/20/2023 15:32 EST 05/20/2023 15:39 EST Narrative [facility] - 05/20/2023 15:59 EST Moderate Intensity Coumadin INR = 2.0-3.0 Adjustments in anticoagulant therapy dose should be based on the INR and NOT on the Protime. David Moya MD HEMATOLOGY & PF4 ORDERABLES Performing Organization Address City/State/[facility] Co de Phone Number [facility] [address] [place] [address] * (ABNORMAL) COMPREHENSIVE METABOLIC PANEL (CMP) (05/20/2023 15:32 EST) Pathologist [facility] Sodium 141 136 - 145 mmol/L 05/20/2023 16:21 [facility] Potassium 4.0 3.5 - 5.0 mmol/L 05/20/2023 16:21 [facility] Chloride 108 96 - 110 mmol/L 05/20/2023 16:21 [facility] CO2 Total 27 22 - 32 mmol/L 05/20/2023 16:21 [facility] Glucose 76 70 - 99 mg/dl 05/20/2023 16:21 [facility] BUN 16 10 - 26 mg/dL 05/20/2023 16:21 [facility] Creatinine 0.60 0.52 - 1.04 mg/dL 05/20/2023 16:21 [facility] eGFR 102 >60 mL/min/1.7 3m2 05/20/2023 16:21 [facility] Total Protein 6.7 6.3 - 8.2 g/dL 05/20/2023 16:21 [facility] Albumin 3.7 3.4 - 4.9 g/dL 05/20/2023 16:21 [facility] Alkaline Phosphatase 167(H) 38 - 126 U/L 05/20/2023 16:21 [facility] AST 58(H) 15 - 46 U/L 05/20/2023 16:21 [facility] ALT 30 <35 U/L 05/20/2023 16:21 [facility] Bilirubin, Total 1.2 <1.4 mg/dL 05/20/20 16:21 [facility] Calcium 9.2 8.5 - 10.5 mg/dL 05/20/2023 16:21 [facility] Albumin/Globulin Ratio 1.2 1.0 - 2.5 g/dL 05/20/2023 16:21 [facility] Anion Gap 6 5 - 14 mmol/L 05/20/2023 16:21 [facility] Blood VENOUS BLOOD / Unknown Venipuncture / Unknown 05/20/2023 15:32 EST 05/20/2023 15:42 EST David Moya MD CHEMISTRY & BLOOD GAS ORDERABLES [facility] [address] [place] [address] * (ABNORMAL) COMPLETE BLOOD COUNT (05/20/2023 15:32 EST) WBC 5.38 4.00 - 12.40 K/cmm 05/20/2023 15:56 [facility] RBC 3.40(L) 3.86 - 5.04 M/cmm 05/20/2023 15:56 [facility] Hemoglobin 12.8 11.6 - 15.2 g/dL 05/20/2023 15:56 [facility] HCT 36.5 34.9 - 44.4 % 05/20/2023 15:56 [facility] MCV 107(H) 81 - 98 fL 05/20/2023 15:56 [facility] MCH 37.6(H) 26.7 - 33.3 pg 05/20/2023 15:56 [facility] MCHC 35.1 32.1 - 35.9 g/dL 05/20/2023 15:56 [facility] RDW-CV 17.2(H) <14.7 % 05/20/2023 15:56 [facility] RDW-SD 68.1(H) <50.4 fl 05/20/2023 15:56 [facility] PLT 122(L) 141 - 377 K/cmm 05/20/2023 15:56 [facility] MPV 10.0 9.5 - 12.7 fL 05/20/2023 15:56 [facility] Blood VENOUS BLOOD / Unknown Venipuncture / Unknown 05/20/2023 15:32 EST 05/20/2023 15:42 EST David Moya MD HEMATOLOGY & PF4 ORDERABLES Performing Organization Address City/State/[facility] Co de Phone Number [facility] [address] [place] [address] documented in this encounter Visit Diagnoses Diagnosis Metastases to the liver (HCC-CMS) Secondary malignant neoplasm of liver documented in this encounter Care Teams Auto Appraiser Relationship Specialty Start Date End Date Linda Blancas MD [facility] [address] [place] [address] PCP - General 01/06/11 Adolfo Carreno MD [address] [place] [address], Level [address] [place] [phone] General Surgery 04/26/19 Augustina Colin MD PhD [address] [place] [address], [facility] 2 [place] [address] Medical Oncology 04/26/19 documented as of this encounter
--- OUTSIDE RECORDS SUMMARY | 2024-03-20 14:44 | XMS_ITS | Encounter Summary ---
Author Organization [facility] Address [address] [place] [address] Care Team Providers Care Process Safety Engineer Name Role Phone Linda Blancas MD Primary Care Provider [phone] Adolfo Carreno MD Unavailable [phone] Augustina Colin MD PhD Unavailable Unavailable Reason for Visit * Reason Onset Date Comments Appointment Related 05/31/2023 Encounter Details Date Type Department Care Team (Late st Contact Info) Description 05/31/2023 Telephone [facility] Interventional Radiology - [address] [phone] Uche Wilson PA-C 111 [facility], Level 1 [place] [address] Appointment Related Social History Tobacco [...] encounter Miscellaneous Notes * Telephone Encounter - Linda Deluca - 05/31/2023 4025 EST Spoke with Sendy in regards to scheduling their outpatient CT BELKIS BX with interventional radiology at [facility]. Patient will be coming in on , 06/16 at 9:00 AM The following details were reviewed with patient to ensure procedure completed on scheduled date: -Patient understands that they will need a refuse driver for this procedure. -Patient understands that they should plan to be here for 5 hours that day in total for prep, procedure and recovery. Pre procedure instructions: Covid 19 Policy: As of December 15 2021, Pre- procedure Covid -19 testing is no longer required. Please call our officeif you become sick or experience any Covid-19 symptoms prior to this appointment. Symptoms include fever, cough, sore throat, loss of taste or smell or difficulty breathing. You will also be screenedfor symptoms on the day of the procedure upon arrival to the hospital. Medication instruction: - RN to contact with detailed pre procedure medication instructions - They will take their morning medications with a small sip of water. - Per Triaged RN letter patient confirmed that they are not taking blood thinning medications at this time -Patient verbalized understanding of OTC pain medication policy DAY OF PROCEDURE PREP: Patient confirmed understanding of the following instructions: -No solid food or liquids containing fats, including milk after midnight before the procedure. -On the day of procedure, only water, apple juice or sports drinks (gatorade or powerade) until 2 hours before the check in time (starting at 7:00 AM) After 7:00 AM, nothing by mouth. Please be sure to take a shower either the evening before or the morning of your procedure. You may take your medications as directed at any time with small sips of water. Do not bring any valuables with you to the hospital. If you use a BiPAP or CPAP machine to help you breathe, please bring it with you on the day of the procedure. Please bring a list of your allergies and current medications. Please notify our office if there is any change in your health such as a cold or a fever. Patient aware IR RN will contact prior to procedure to go over prep in detail and answer any questions. I have sent patient confirmation via [employer]. I have notified referring provider of this patients scheduled date and time. Any further questions can be addressed to Interventional Radiology Department [phone] Ext. 1 Patient verbalized understanding and agrees with Plan of Care. No cognitive barriers were identified during this conversation & they have our contact number to call with questions. Linda Deluca documented in this encounter Plan of Treatment Upcoming Encounters Date Type Department Care Team (Late st Contact Info) Description 04/02/2024 10:30 EDT Appointment [facility] Interventional Radiology Unit [address] [place] [address] [phone] 04/02/2024 15:15 EDT Office Visit [facility] Surgical Oncology - [address] [phone] Adolfo Carreno MD 111 [facility], [facility] 2 [place] [phone] 04/05/2024 9:30 EDT Telemedicine [facility] Palliative Care Services [address] [place], [place] [phone] Chichi Woods MD 111 [facility], [address] [phone] 04/11/2024 15:00 EDT Telemedicine [facility] Hematology & Oncology - [facility] [address] [place], [place] [phone] Alisson Carreon MD [address] [place] [address], [facility] 2 [place] [phone] 04/13/2024 13:30 EDT Appointment [facility] Hematology & Oncology - [address] [phone] 04/13/2024 14:00 EDT Appointment [facility] Hematology & Oncology - [address] [phone] 04/16/2024 10:00 EST Telemedicine [facility] - [facility] Services [address] [place] [address] [phone] Chichi Woods MD [address] [place] [phone] 04/24/2024 9:00 EST Appointment [facility] Radiology CT Outpatient - [address] [id number] 04/24/2024 11:00 EST Appointment [facility] Breast Imaging - [address] [id number] 04/27/2024 12:00 EST Appointment [facility] Hematology & Oncology - [address] 979231 05/02/2024 15:00 EST Telemedicine [facility] Hematology & Oncology - [address] 369551 Alisson Carreon MD [address] [place] [address], [facility] 2 [place] [phone] 05/04/2024 10:15 EST Ancillary Procedure [facility] Cardiology - [address] [place], [place] [phone] 05/04/2024 11:30 EST Appointment [facility] Hematology & Oncology - [address] [address] 05/04/2024 12:00 EST Appointment [facility] Hematology & Oncology - [address] [address] 06/12/2024 13:00 EST Appointment [facility] Radiology CT - [address] [address] documented as of this encounter Visit Diagnoses Not on filedocumented in this encounter Care Teams Process Safety Engineer Relationship Specialty Start Date End Date Linda Blancas MD [facility] [address] [place] [address] PCP - General 01/06/11 Adolfo Carreno MD [address] [place] [phone] General Surgery 04/26/19 Augustina Colin MD PhD [address] [place] [phone] Medical Oncology 04/26/19 documented as of this encounter
--- OUTSIDE RECORDS SUMMARY | 2024-03-20 14:44 | XMS_ITS | Encounter Summary ---
Author Organization [facility] Address [address] [place] [address] Care Team Providers Care Network Firewall Engineer Name Role Phone Linda Blancas MD Primary Care Provider [phone] Adolfo Carreno MD Unavailable [phone] Augustina Colin MD PhD Unavailable Unavailable Reason for Visit * Reason Onset Date Comments Appointment Related 05/19/2023 Encounter Details Date Type Department Care Team (Late st Contact Info) Description 05/19/2023 Telephone [facility] Interventional Radiology - [address] [address] David Moya MD [address] [facility], Level 1 [place] [address] Appointment Related Social History Tobacco [...] * Telephone Encounter - Abraham Mendez - 05/27/2023 0908 EST Screening Questions prior to Med Release [...] any planned in the near future? no * Telephone Encounter - Linda Deluca - 05/19/2023 1506 EST Sendy called to confirm telemedicine visit with [facility] on 05/25 at 3:30 PM. She also said she would get her lab work done after her scan on 05/20. documented in this encounter Plan of Treatment Upcoming Encounters Date Type Department Care Team (Late st Contact Info) Description 04/02/2024 10:30 EDT Appointment [facility] Interventional Radiology Unit [address] [place] [address] [phone] 04/02/2024 15:15 EDT Office Visit [facility] Surgical Oncology - Main [place] [address] [place] [address] Adolfo Carreno MD [address] [place] [address] 2 [place] [phone] 04/05/2024 9:30 EDT Telemedicine [facility] Palliative Care Services [address] [place] [address] [phone] Chichi Woods MD [address] [place] [phone] 04/11/2024 15:00 EDT Telemedicine [facility] Hematology & Oncology - [address] [phone] Alisson Carreon MD [address] [place] [address] 2 [place] [phone] 04/13/2024 13:30 EDT Appointment [facility] Hematology & Oncology - [address] [phone] 04/13/2024 14:00 EDT Appointment [facility] Hematology & Oncology - [address] [phone] 04/16/2024 10:00 EST Telemedicine [facility] Palliative [facility] Services [address] [place] [address] 785011 Chichi Woods MD [address] [place] [phone] 04/24/2024 9:00 EST Appointment [facility] Radiology CT Outpatient - [address] [id number] 04/24/2024 11:00 EST Appointment [facility] Breast Imaging - [address] 101391 04/27/2024 12:00 EST Appointment [facility] Hematology & Oncology [address] [phone] 05/02/2024 15:00 EST Telemedicine [facility] Hematology & Oncology [address] 830281 Alisson Carreon MD [address] [place] [phone] 05/04/2024 10:15 EST Ancillary Procedure [facility] Cardiology - [address] [place], [place] [phone] 05/04/2024 11:30 EST Appointment [facility] Hematology & Oncology [address] 135151 05/04/2024 12:00 EST Appointment [facility] Hematology & Oncology [address] [id number] 06/12/2024 13:00 EST Appointment [facility] Radiology CT - [address] [phone] documented as of this encounter Visit Diagnoses Not on filedocumented in this encounter Care Teams Network Firewall Engineer Relationship Specialty Start Date End Date Linda Blancas MD [facility] [address] [place] [address] PCP - General 01/06/11 Adolfo Carreno MD [address] [place] [phone] General Surgery 04/26/19 Augustina Colin MD PhD [address] [place] [phone] Medical Oncology 04/26/19 documented as of this encounter
--- OUTSIDE RECORDS SUMMARY | 2024-03-20 14:44 | XMS_ITS | Encounter Summary ---
Author Organization [facility] Address [address] [place] [address] Care Team Providers Care Pattern Developer Name Role Phone Linda Blancas MD Primary Care Provider [phone] Adolfo Carreno MD Unavailable [phone] Augustina Colin MD PhD Unavailable Unavailable Encounter Details Date Type Department Care Team (Late st Contact Info) Description 07/12/2023 Lab Requisition [facility] Pathology & Laboratory Medicine - [address] [address] Mustapha Nguyen MD [address] [place] [address] Level 1 [place] [address] Social History Tobacco Use Types [...] Appointment [facility] Interventional Radiology Unit [address] [place] [address] [phone] 04/02/2024 15:15 EDT Office Visit [facility] Surgical Oncology - [address] [phone] Adolfo Carreno MD [address] [place] [address] 2 [place] [phone] 04/05/2024 9:30 EDT Telemedicine [facility] - [facility] Palliative Care Services [address] [place] [address] [phone] Chichi Woods MD [address] [place] [phone] 04/11/2024 15:00 EDT Telemedicine [facility] Hematology & Oncology [address] [phone] Alisson Carreon MD [address] [place] [address] 2 [place] [phone] 04/13/2024 13:30 EDT Appointment [facility] Hematology & Oncology [address] [phone] 04/13/2024 14:00 EDT Appointment [facility] Hematology & Oncology - [address] [address] 04/16/2024 10:00 EST Telemedicine [facility] - [facility] Palliative Care Services [address] [place], [place] [phone] Chichi Woods MD 111 [facility], [address] [phone] 04/24/2024 9:00 EST Appointment [facility] Radiology CT Outpatient - [address] [address] 04/24/2024 11:00 EST Appointment [facility] Breast Imaging - [address] [id number] 04/27/2024 12:00 EST Appointment [facility] Hematology & Oncology - [address] [phone] 05/02/2024 15:00 EST Telemedicine [facility] Hematology & Oncology - [address] 173411 Alisson Carreon MD [address] [place] [address], Level 2 [place] [phone] 05/04/2024 10:15 EST Ancillary Procedure [facility] Cardiology - [place] [address] 05/04/2024 11:30 EST Appointment [facility] Hematology & Oncology - [address] [address] 05/04/2024 12:00 EST Appointment [facility] Hematology & Oncology - [address] [address] 06/12/2024 13:00 EST Appointment [facility] Center Radiology CT - Main [address] [address] documented as of this encounter Procedures Procedure Name Priority Date/Time Associated Diagnosis Comments MISCELLANEOUS TEST, TODD Today 06/16/2023 12:00 EST documented in this encounter Results * MISCELLANEOUS TEST, TODD (06/16/2023 12:00 EST) Miscellaneous Test, Todd HER2, Breast Tumor, FISH, Tissue 07/27/2023 17:13 EST [facility] [place] Test ID [id number] 07/27/2023 17:13 EST [facility] Ref Lab [facility] 07/27/2023 17:13 EST [facility] Blood VENOUS BLOOD / Unknown Non-Lab Collect / Unknown 06/16/2023 12:00 EST 07/12/2023 14:39 EST Narrative [facility] - 07/27/2023 17:13 EST See scanned/supplementary report. Mustapha Nguyen MD CHEMISTRY & BLOOD GAS ORDERABLES [facility] [address] [place] [address] documented in this encounter Visit Diagnoses Not on filedocumented in this encounter Additional Health Concerns Infection Onset Date Last Indicated Resolved Time R/O COVID-19 12/12/2023 12/12/2023 12/12/2023 15:3 5 EDT R/O COVID-19 01/08/2024 01/08/2024 01/08/2024 18:2 6 EDT R/O COVID-19 01/16/2024 01/16/2024 01/16/2024 17:5 0 EDT documented as of this encounter Care Teams Pattern Developer Relationship Specialty Start Date End Date Linda Blancas MD [facility] [address] [place] [address] PCP - General 01/06/11 Adolfo Carreno MD [address] [place] [address], [facility], [facility] [place] [facility] 2 [place] [address] General Surgery 04/26/19 Augustina Colin MD PhD [address] [place] [address], [facility] [place] [facility] 2 [place] [address] Medical Oncology 04/26/19 documented as of this encounter
--- OUTSIDE RECORDS SUMMARY | 2024-03-20 14:44 | XMS_ITS | Encounter Summary ---
Author Organization [facility] Address [address] [place] [address] Care Team Providers Care Armored Car Messenger Name Role Phone Linda Blancas MD Primary Care Provider [phone] Adolfo Carreno MD Unavailable [phone] Augustina Colin MD PhD Unavailable Unavailable Reason for Visit * Reason Onset Date Comments Orders (Non Pre-visit) 05/19/2023 Encounter Details Date Type Department Care Team (Late st Contact Info) Description 05/19/2023 Telephone [facility] Interventional Radiology - Main [place] [address] [place], [place] [phone] Ivy Marquis RN Orders (Non Pre-visit) Social History Tobacco Use Types Packs/Day Years [...] encounter Miscellaneous Notes * Telephone Encounter - Ivy Marquis, RN - 05/19/2023 1346 EST Lab ordered. Called patient to notify of appointments and lab work. No answer LVM with IRC callback. documented in this encounter Plan of Treatment Upcoming Encounters Date Type Department Care Team (Late st Contact Info) Description 04/02/2024 10:30 EDT Appointment [facility] Interventional Radiology Unit [address] [place] [address] [phone] 04/02/2024 15:15 EDT Office Visit [facility] Surgical Oncology - [address] 317241 Adolfo Carreno MD [address] [place] [phone] 04/05/2024 9:30 EDT Telemedicine [facility] - [facility] Palliative Care Services [address] [place] [address] [phone] Chichi Woods MD [address] [place] [address], [address] [phone] 04/11/2024 15:00 EDT Telemedicine [facility] Hematology & Oncology - [address] 166331 Alisson Carreon MD [address] [place] [phone] 04/13/2024 13:30 EDT Appointment [facility] Hematology & Oncology - [address] 118381 04/13/2024 14:00 EDT Appointment [facility] Hematology & Oncology [address] [phone] 04/16/2024 10:00 EST Telemedicine [facility] - [facility] Palliative Care Services [address] [place] [address] [phone] Chichi Woods MD [address] [place] [address], [address] [phone] 04/24/2024 9:00 EST Appointment [facility] Radiology CT Outpatient - [address] [phone] 04/24/2024 11:00 EST Appointment [facility] Breast Imaging - [facility] [place] 1 [place], [place] 099351 04/27/2024 12:00 EST Appointment [facility] Hematology & Oncology [address] [phone] 05/02/2024 15:00 EST Telemedicine [facility] Hematology & Oncology - [address] [phone] Alisson Carreon MD [address] [place] [address], Level 2 [place] [phone] 05/04/2024 10:15 EST Ancillary Procedure [facility] Cardiology - [place] [address] 05/04/2024 11:30 EST Appointment [facility] Hematology & Oncology [address] [phone] 05/04/2024 12:00 EST Appointment [facility] Hematology & Oncology - [facility] [address] [place], [place] 613111 06/12/2024 13:00 EST Appointment [facility] Radiology CT - [facility] [address] [place] [address] documented as of this encounter Results * PROTIME (05/20/2023 15:32 EST) [facility] I.N.R. 1.1 0.9 - 1.1 Ratio 05/20/2023 15:59 [facility] Pro Time 11.9 9.7 - 12.8 secs 05/20/2023 15:59 [facility] Blood VENOUS BLOOD / Unknown Venipuncture / Unknown 05/20/2023 15:32 EST 05/20/2023 15:39 EST Narrative [facility] - 05/20/2023 15:59 EST Moderate Intensity Coumadin INR = 2.0-3.0 Adjustments in anticoagulant therapy dose should be based on the INR and NOT on the Protime. David Moya MD HEMATOLOGY & PF4 ORDERABLES Performing Organization Address City/State/[facility] Co de Phone Number [facility] [address] [place] [address] * (ABNORMAL) COMPREHENSIVE METABOLIC PANEL (CMP) (05/20/2023 15:32 EST) [facility] Sodium 141 136 - 145 mmol/L 05/20/2023 16:21 [facility] Potassium 4.0 3.5 - 5.0 mmol/L 05/20/2023 16:21 [facility] Chloride 108 96 - 110 mmol/L 05/20/2023 16:21 [facility] CO2 Total 27 22 - 32 mmol/L 05/20/2023 16:21 [facility] Glucose 76 70 - 99 mg/dl 05/20/2023 16:21 [facility] BUN 16 10 - 26 mg/dL 05/20/2023 16:21 [facility] Creatinine 0.60 0.52 - 1.04 mg/dL 05/20/2023 16:21 [facility] eGFR 102 >60 mL/min/1.7 3m2 05/20/2023 16:21 [facility] Total Protein 6.7 6.3 - 8.2 g/dL 05/20/2023 16:21 [facility] Albumin 3.7 3.4 - 4.9 g/dL 05/20/2023 16:21 [facility] Alkaline Phosphatase 167(H) 38 - 126 U/L 05/20/2023 16:21 [facility] AST 58(H) 15 - 46 U/L 05/20/2023 16:21 [facility] ALT 30 <35 U/L 05/20/2023 16:21 [facility] Bilirubin, Total 1.2 <1.4 mg/dL 05/20/20 16:21 [facility] Calcium 9.2 8.5 - 10.5 mg/dL 05/20/2023 16:21 [facility] Albumin/Globulin Ratio 1.2 1.0 - 2.5 g/dL 05/20/2023 16:21 [facility] Anion Gap 6 5 - 14 mmol/L 05/20/2023 16:21 [facility] Blood VENOUS BLOOD / Unknown Venipuncture / Unknown 05/20/2023 15:32 EST 05/20/2023 15:42 EST David Moya MD CHEMISTRY & BLOOD GAS ORDERABLES [facility] [address] [place] [address] * (ABNORMAL) COMPLETE BLOOD COUNT (05/20/2023 15:32 EST) WBC 5.38 4.00 - 12.40 K/cmm 05/20/2023 15:56 [facility] RBC 3.40(L) 3.86 - 5.04 M/cmm 05/20/2023 15:56 [facility] Hemoglobin 12.8 11.6 - 15.2 g/dL 05/20/2023 15:56 [facility] HCT 36.5 34.9 - 44.4 % 05/20/2023 15:56 [facility] MCV 107(H) 81 - 98 fL 05/20/2023 15:56 [facility] MCH 37.6(H) 26.7 - 33.3 pg 05/20/2023 15:56 [facility] MCHC 35.1 32.1 - 35.9 g/dL 05/20/2023 15:56 [facility] RDW-CV 17.2(H) <14.7 % 05/20/2023 15:56 [facility] RDW-SD 68.1(H) <50.4 fl 05/20/2023 15:56 [facility] PLT 122(L) 141 - 377 K/cmm 05/20/2023 15:56 [facility] MPV 10.0 9.5 - 12.7 fL 05/20/2023 15:56 [facility] Blood VENOUS BLOOD / Unknown Venipuncture / Unknown 05/20/2023 15:32 EST 05/20/2023 15:42 EST David Moya MD HEMATOLOGY & PF4 ORDERABLES Performing Organization Address City/State/[facility] Co de Phone Number [facility] [address] [place] [address] documented in this encounter Visit Diagnoses Diagnosis Metastases to the liver (HCC-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
--- OUTSIDE RECORDS SUMMARY | 2024-03-20 14:44 | XMS_ITS | Encounter Summary ---
Author Organization [facility] Address [address] [place] [address] Care Team Providers Care Police Worker Name Role Phone Linda Blancas MD Primary Care Provider [phone] Adolfo Carreno MD Unavailable [phone] Augustina Colin MD PhD Unavailable Unavailable Reason for Referral * Radiology Services (Routine/Next Available) - Authorized Specialty Diagnoses / Procedures Referred By Contac t Referred To Contact Diagnoses Malignant neoplasm of right female breast, unspecified estrogen receptor status, unspecified site of breast ([facility]) Procedures CT CHEST W CONTRAST Augustina Colin MD PhD [facility] Referral ID Status Reason Start Date Expiration Date V isits Requested Visits Authorized [id number] Authorized 05/11/2023 11/07/2023 1 1 Reason for Visit * Radiology Services (Routine/Next Available) - Authorized Specialty Diagnoses / Procedures Referred By Contac t Referred To Contact Diagnoses Malignant neoplasm of right female breast, unspecified estrogen receptor status, unspecified site of breast ([facility]) Procedures CT CHEST W CONTRAST Augustina Colin MD PhD [facility] Referral ID Status Reason Start Date Expiration Date V isits Requested Visits Authorized [id number] Authorized 05/11/2023 11/07/2023 1 1 Encounter Details Date Type Department Care Team (Latest Contact Info) Description 05/27/2023 12:09 EST - 05/27/2023 23:59 EST Hospital [facility] Radiology CT - Main [place] [address] [place], [place] [id number] Malignant neoplasm of right female breast, unspecified estrogen receptor status, unspecified site of breast ([facility]) Discharge Disposition: Home or Self Care Social [...] estrogen receptor status, unspecified site of breast ([facility]) Take 3 Tablets by mouth every 12 hours. one week on, one week off 84 Tablet 3 03/28/2023 09/22/2023 gabapentin (NEURONTIN) 100 mg capsule Take 2 Caps by mouth 2 times daily. 360 Cap 3 08/16/2012 12/14/2023 ibuprofen (MOTRIN) 200 mg tablet Take 2 Tablets by mouth as needed. 12/07/2023 mv-mn/C/glutamin/lysin/h [id number] (AIRBORNE, ASCORBATE SODIUM, ORAL) Take by mouth [...] [facility] Interventional Radiology Unit [address] [place] [address] [phone] 04/02/2024 15:15 EDT Office Visit [facility] Surgical Oncology - [address] [phone] Adolfo Carreno MD 111 [facility], Level 2 [place] [phone] 04/05/2024 9:30 EDT Telemedicine [facility] - [facility] Palliative Care Services [address] [place] [address] [phone] Chichi Woods MD 111 [facility], [address] [phone] 04/11/2024 15:00 EDT Telemedicine [facility] Hematology & Oncology - [address] [phone] Alisson Carreon MD [address] [place] [address] 2 [place] [phone] 04/13/2024 13:30 EDT Appointment [facility] Hematology & Oncology - [address] [phone] 04/13/2024 14:00 EDT Appointment [facility] Hematology & Oncology - [address] [phone] 04/16/2024 10:00 EST Telemedicine [facility] - [facility] Palliative Care Services [address] [place] [address] [phone] Chichi Woods MD [address] [place] [phone] 04/24/2024 9:00 EST Appointment [facility] Radiology CT Outpatient - [address] 186301 04/24/2024 11:00 EST Appointment [facility] Breast Imaging - [facility] S [address] [phone] 04/27/2024 12:00 EST Appointment [facility] Hematology & Oncology - [address] [phone] 05/02/2024 15:00 EST Telemedicine [facility] Hematology & Oncology - [address] [phone] Alisson Carreon MD [address] [place] [address], [facility] [address] [place] [phone] 05/04/2024 10:15 EST Ancillary Procedure [facility] Cardiology - [place] [address] 05/04/2024 11:30 EST Appointment [facility] Hematology & Oncology [address] [address] 05/04/2024 12:00 EST Appointment [facility] Hematology & Oncology [address] [address] 06/12/2024 13:[address] [facility] Radiology CT - [address] [address] documented as of this encounter Procedures Procedure Name Priority Date/Time Associated Diagnosis Comments CT CHEST W CONTRAST Routine 05/27/2023 1 6:45 EST Malignant neoplasm of right female breast, unspecified estrogen receptor status, unspecified site of breast (HCC-CMS) documented in this encounter Results * CT CHEST W CONTRAST (05/27/2023 16:45 EST) Anatomical Region Laterality Modality Chest Computed Tomogra phy 05/27/2023 17:1 6 EST Impressions 05/27/2023 17:16 EST 1. Slightly increased size of mildly enlarged lymph nodes in the cardiophrenic angle, right internal mammary chain, and right lung apex concerning for progression of metastatic disease. 2. Stable to minimally increased size of a 9 x 5 mm spiculated left apical nodule, compatible with indolent metastasis or primary lung carcinoma. 3. Healed bilateral rib fractures, including healed fracture of the left posterior ninth rib where, in retrospect, there may have been a very subtle lytic metastasis. Clinical correlation for any history of trauma to this region is recommended. 4. Multiple abnormal findings in the abdomen, better evaluated on the 05/20/2023 abdominal MRI and unchanged since then. [id number] Narrative 05/27/2023 17:[address] CHEST W CONTRAST ??05/27/2023 4:30 PM Clinical History/Comments: metastatic breast cancer; Breast cancer, invasive, stage IV, pre-therapy or re-staging; metastatic breast cancer;C50.911:Malignant neoplasm of right female breast, unspecified estrogen receptor status, unspecified site of breast (HCC- CMS) Technique: CT scan of the chest with intravenous contrast material was performed. This CT used either dose modulation and/or iterative reconstruction techniques to lower radiation dose. Comparison: 11/26/2021 CT scan. Findings: Lower neck: Normal. Mediastinum and mariann (non-vascular): Lymph node in the cardiophrenic angle measuring 5 mm in short axis, increased from 3 mm. Unremarkable thoracic esophagus. Cardiovascular: Mild atherosclerotic soft plaque in the descending aorta and proximal left subclavian artery. Trace calcium at the ostium of the left common carotid artery. Otherwise normal in appearance. Lungs and airways: 9 x 5 mm spiculated peripheral left apical nodule (image 142 series 402), stable to minimally increased since previous study, though the orientation of the nodule is slightly different, likely related to slight difference in patient positioning and/or degree of inspiration. Stable 2 mm right apical nodule (image 141). Minimally increased size of a triangular nodule in the medial right lung apex (image 204), likely an intrapulmonary lymph node. Clear central airways. Pleura: Normal. Upper abdomen (limited to upper abdomen, not optimized for abdominal imaging): Please refer to the report for the abdominal MRI dated 05/20/2023. Multiple hepatic metastases, trace perihepatic ascites, borderline splenomegaly, and cholelithiasis again noted. Chest wall soft tissues: Bilateral breast prostheses, right larger than the left. Increased size of right internal mammary chain lymph node, now measuring 8 mm in short axis (image 63 series 401), previously 6 mm. Unchanged top normal size left retropectoral node measuring 6 mm (image 43). Bones: Healed fracture of the sixth posterior right rib. New healed fracture of the second lateral left rib. New healed fracture of the left posterior ninth rib where, in retrospect, previously there was a very subtle lytic focus. Procedure Note Ewa Lockwood MD - 05/27/2023 CT CHEST W CONTRAST 05/27/2023 4:30 PM Clinical History/Comments: metastatic breast cancer; Breast cancer, invasive, stage IV, pre-therapyor re-staging; metastatic breast cancer;C50.911:Malignant neoplasm ofright female breast, unspecified estrogen receptor status, unspecifiedsite of breast (HCC- CMS) Technique: CT scan of the chest with intravenous contrast material was performed. This CT used either dose modulation and/or iterative reconstructiontechniques to lower radiation dose. Comparison: 11/26/2021 CT scan. Findings: Lower neck: Normal. Mediastinum and mariann (non-vascular): Lymph node in the cardiophrenic anglemeasuring 5 mm in short axis, increased from 3 mm. Unremarkable thoracicesophagus. Cardiovascular: Mild atherosclerotic soft plaque in the descending aortaand proximal left subclavian artery. Trace calcium at the ostium of theleft common carotid artery. Otherwise normal in appearance. Lungs and airways: 9 x 5 mm spiculated peripheral left apical nodule(image 142 series 402), stable to minimally increased since previousstudy, though the orientation of the nodule is slightly different, likelyrelated to slight difference in patient positioning and/or degree ofinspiration. Stable 2 mm right apical nodule (image 141). Minimallyincreased size of a triangular nodule in the medial right lung apex ([id number]), likely an intrapulmonary lymph node. Clear central airways. Pleura: Normal. Upper abdomen (limited to upper abdomen, not optimized for abdominalimaging): Please refer to the report for the abdominal MRI dated107/21/2022. Multiple hepatic metastases, trace perihepatic ascites,borderline splenomegaly, and cholelithiasis again noted. Chest wall soft tissues: Bilateral breast prostheses, right larger thanthe left. Increased size of right internal mammary chain lymph node, nowmeasuring 8 mm in short axis (image 63 series 401), previously 6 mm.Unchanged top normal size left retropectoral node measuring 6 mm (image43). Bones: Healed fracture of the sixth posterior right rib. New healedfracture of the second lateral left rib. New healed fracture of the leftposterior ninth rib where, in retrospect, previously there was a verysubtle lytic focus. IMPRESSION 1. Slightly increased size of mildly enlarged lymph nodes in thecardiophrenic angle, right internal mammary chain, and right lung apexconcerning for progression of metastatic disease. 2. Stable to minimally increased size of a 9 x 5 mm spiculated left apicalnodule, compatible with indolent metastasis or primary lung carcinoma. 3. Healed bilateral rib fractures, including healed fracture of the leftposterior ninth rib where, in retrospect, there may have been a verysubtle lytic metastasis. Clinical correlation for any history of trauma tothis region is recommended. 4. Multiple abnormal findings in the abdomen, better evaluated on the05/20/2023 abdominal MRI and unchanged since then. [id number] Augustina Colin MD PhD IMG CT ORDERABLES [...] Once in imaging, 1 dose, Starting on Tue05/27/23 at 1645, Until Tue05/27/23 at 1645, Routine, Imaging Protocol Orders Given 05/27/2023 16:45 EST 40 mL documented in this encounter Orders Medications Ordered That Vj ht Not Have Been Administered Count Last Ordered Date First Ordered Date iohexoL (OMNIPAQUE 350) solution 100 mL 1 1 07/28/2022 documented in this encounter Care Teams Police Worker Relationship Specialty Start Date End Date Linda Blancas MD [facility] [address] [place] [address] PCP - General 01/06/11 Adolfo Carreno MD [address] [place] [phone] General Surgery 04/26/19 Augustina Colin MD PhD [address] [place] [phone] Medical Oncology 04/26/19 documented as of this encounter
--- OUTSIDE RECORDS SUMMARY | 2024-03-20 14:44 | XMS_ITS | Encounter Summary ---
Author Organization [facility] Address [address] [place] [address] Care Team Providers Care Law Office Assistant Name Role Phone Linda Blancas MD Primary Care Provider [phone] Adolfo Carreno MD Unavailable [phone] Augustina Colin MD PhD Unavailable Unavailable Encounter Details Date Type Department Care Team (Late st Contact Info) Description 06/02/2023 Orders Only [facility] Radiology - Main [place] [address] [place] [address] Pretty Thornton MD [address] [place] [phone] Social History Tobacco Use Types [...] EDT Appointment [facility] Interventional Radiology Unit [address] [place] [address] [phone] 04/02/2024 15:15 EDT Office Visit [facility] Surgical Oncology - [address] [phone] Adolfo Carreno MD [address] [place] [address] 2 [place] [phone] 04/05/2024 9:30 EDT Telemedicine [facility] - [facility] Palliative Care Services [address] [place] [address] [phone] Chichi Woods MD [address] [place] [address], [address] [phone] 04/11/2024 15:00 EDT Telemedicine [facility] Hematology & Oncology [address] 221961 Alisson Carreon MD [address] [place] [address] 2 [place] [phone] 04/13/2024 13:30 EDT Appointment [facility] Hematology & Oncology [address] [phone] 04/13/2024 14:00 EDT Appointment [facility] Hematology & Oncology - [address] [phone] 04/16/2024 10:00 EST Telemedicine [facility] - [facility] Palliative Care Services [address] [place], [place] 026821 Chichi Woods MD 111 [facility], [address] [phone] 04/24/2024 9:00 EST Appointment [facility] Radiology CT Outpatient - [address] [id number] 04/24/2024 11:00 EST Appointment [facility] Breast Imaging - [facility] S [address] 935241 04/27/2024 12:00 EST Appointment [facility] Hematology & Oncology - [address] [phone] 05/02/2024 15:00 EST Telemedicine [facility] Hematology & Oncology - [address] 116411 Alisson Carreon MD [address] [place] [address], Level [address] [place] [phone] 05/04/2024 10:15 EST Ancillary Procedure [facility] Cardiology - [place] [address] 05/04/2024 11:30 EST Appointment [facility] Hematology & Oncology - [address] 679201 05/04/2024 12:00 EST Appointment [facility] Hematology & Oncology - [address] [address] 06/12/2024 13:00 EST Appointment [facility] Radiology CT - [address] [phone] documented as of this encounter Visit Diagnoses Not on filedocumented in this encounter Care Teams Law Office Assistant Relationship Specialty Start Date End Date Linda Blancas MD [address] [place] [address] 30 [place] [address] PCP - General 01/06/11 Adolfo Carreno MD [address] [place] [phone] General Surgery 04/26/19 Augustina Colin MD PhD [address] [place] [phone] Medical Oncology 04/26/19 documented as of this encounter
--- OUTSIDE RECORDS SUMMARY | 2024-03-20 14:44 | XMS_ITS | Encounter Summary ---
Author Organization [facility] Address [address] [place] [address] Care Team Providers Care Community Outreach Worker Name Role Phone Linda Blancas MD Primary Care Provider [phone] Adolfo Carreno MD Unavailable [phone] Augustina Colin MD PhD Unavailable Unavailable Reason for Referral * Radiology Services (Routine/Next Available) - Authorization Not Required Specialty Diagnoses / Procedures Referred By Contac t Referred To Contact Nuclear Medicine Diagnoses Malignant neoplasm of right female breast, unspecified estrogen receptor status, unspecified site of breast ([facility]) Procedures NM BONE WHOLE BODY Augustina Colin MD PhD [facility] Referral ID Status Reason Start Date Expiration Date Visits Requested Visits Authorized [id number] Authorization Not Required 03/01/2023 1 2 Reason for Visit * Radiology Services (Routine/Next Available) - Authorization Not Required Specialty Diagnoses / Procedures Referred By Contac t Referred To Contact Nuclear Medicine Diagnoses Malignant neoplasm of right female breast, unspecified estrogen receptor status, unspecified site of breast ([facility]) Procedures NM BONE WHOLE BODY Augustina Colin MD PhD [facility] Referral ID Status Reason Start Date Expiration Date Visits Requested Visits Authorized [id number] Authorization Not Required 03/01/2023 1 2 Encounter Details Date Type Department Care Team (Latest Contact Info) Description 06/21/2023 12:00 EST - 06/21/2023 12:02 EST [facility] Nuclear Medicine and PET - [facility] [address] [place] [address] Malignant neoplasm of right female breast, unspecified estrogen receptor status, unspecified site of breast ([facility]) Discharge Disposition: Home or Self [...] estrogen receptor status, unspecified site of breast ([facility]) Take 3 Tablets by mouth every 12 [...] Tablets by mouth as needed. 12/07/2023 mv-mn/C/glutamin/lysin/h [id number] (AIRBORNE, ASCORBATE SODIUM, ORAL) Take by mouth [...] Appointment [facility] Interventional Radiology Unit [address] [place] [address] [phone] 04/02/2024 15:15 EDT Office Visit [facility] Surgical Oncology - [facility] [address] [place], [place] [phone] Adolfo Carreno MD 111 [facility], Level 2 [place] [phone] 04/05/2024 9:30 EDT Telemedicine [facility] Palliative Care Services [address] [place], [place] [phone] Chichi Woods MD 111 [facility] [place] [address] [place] [phone] 04/11/2024 15:00 EDT Telemedicine [facility] Hematology & Oncology - [address] [phone] Alisson Carreon MD [address] [place] [address] 2 [place] [phone] 04/13/2024 13:30 EDT Appointment [facility] Hematology & Oncology - [address] [phone] 04/13/2024 14:00 EDT Appointment [facility] Hematology & Oncology [address] [id number] 04/16/2024 10:00 EST Telemedicine [facility] - [facility] Palliative Care Services [address] [place] [address] Chichi Woods MD [address] [place] [phone] 04/24/2024 9:00 EST Appointment [facility] Radiology CT Outpatient - [address] [phone] 04/24/2024 11:00 EST Appointment [facility] Breast Imaging - [address] 850301 04/27/2024 12:00 EST Appointment [facility] Hematology & Oncology - [address] [phone] 05/02/2024 15:00 EST Telemedicine [facility] Hematology & Oncology [address] [phone] Alisson Carreon MD [address] [place] [address], [facility] 2 [place] [phone] 05/04/2024 10:15 EST Ancillary Procedure [facility] Cardiology - [address] [place] [address] 05/04/2024 11:30 EST Appointment [facility] Hematology & Oncology [address] [phone] 05/04/2024 12:00 EST Appointment [facility] Hematology & Oncology [address] [phone] 06/12/2024 13:00 EST Appointment [facility] Radiology CT - [address] [phone] documented as of this encounter Procedures Procedure [...] above interpretation and agree with the findings. [id number] Narrative 06/21/2023 16:53 EST NM BONE WHOLE [...] unspecifiedestrogen receptor status, unspecified site of breast ([facility]) Comparison: X-ray chest 06/16/2023, CT chest with [...] increased radiotracer uptake at the junctional zone L1-[id number] to severe discogenic endplate disease. Focus of [...] the above interpretation andagree with the findings. [id number] Augustina Colin MD PhD IM NM ORDERABLES documented in this encounter Visit [...] radiopharm IV, NOW X1, 1 dose, On Tue06/21/23 at 1300, Routine, Imaging Protocol Orders Given 06/21/2023 12:20 EST 18.27 millicuries documented in this encounter Orders Medications Ordered That Vj ht Not Have Been Administered Count Last Ordered Date First Ordered Date technetium (Tc-99m) methylen e diphosphonate (MDP) injection 18 millicurie 1 06/21/2023 documented in this encounter Care Teams Community Outreach Worker Relationship Specialty Start Date End Date Linda Blancas MD [facility] [address] [place] [address] PCP - General 01/06/11 Adolfo Carreno MD [address] [place] [address] 2 [place] [phone] General Surgery 04/26/19 Augustina Colin MD PhD [facility], [address] [place] [phone] Medical Oncology 04/26/19 documented as of this encounter
--- OUTSIDE RECORDS SUMMARY | 2024-03-20 14:44 | XMS_ITS | Encounter Summary ---
Author Organization [facility] Address [address] [place] [address] Care Team Providers Care Furnace Clerk Name Role Phone Linda Blancas MD Primary Care Provider [phone] Adolfo Carreno MD Unavailable [phone] Augustina Colin MD PhD Unavailable Unavailable Reason for Visit * Reason Comments Eye Problem Patient notes double vision after about 20 minutes of reading. Mid distance and up close. Double vision goes away when covering one eye or the other Encounter Details Date Type Department Care Team (Late st Contact Info) Description 05/20/2023 13:15 EST Office Visit [facility] Ophthalmology - [facility] [address], [place] [id number] Tylor Bonilla MD [address] [facility], Level 5 [place] [address] Social History Tobacco Use Types [...] as of this encounter Progress Notes * Tylor Bonilla MD - 05/20/2023 1315 EST Chief Complaint Patient presents with ??? Eye Problem Patient notes double vision after about 20 minutes of reading. Mid distance and up close. Double vision goes away when covering one eye or the other HPI Eye Problem Comments: Patient notes double vision after about 20 minutes of reading. Mid distance and up close.Double vision goes away when covering one eye or the other Base Eye Exam Visual Acuity (Snellen - Linear) Right Left Dist cc 20/20 20/70 Near sc J3 Tonometry (Applanation, 13:17) Right Left Pressure 10 10 Pupils Pupils APD Right PERRL None Left PERRL None Neuro/Psych Oriented x3: Yes Mood/Affect: Normal Dilation Both eyes: Phenylephrine 2.5%, Tropicamide 1% @ 13:17 Slit Lamp and Fundus Exam Slit Lamp Exam Right Left Lids/Lashes Normal Normal Conjunctiva/Sclera White and quiet White and quiet Cornea Lasik flaps, 2+ Punctate epithelial erosions Lasik flaps, 2+ Punctate epithelial erosions Anterior Chamber Deep and quiet Deep and quiet Iris Dilated Dilated Lens Clear Clear Anterior Vitreous Posterior vitreous detachment Posterior vitreous detachment Fundus Exam Right Left Disc Tilted disc Tilted disc C/D Ratio 0.3 0.3 Macula Healthy Cellophane reflex Vessels Healthy Healthy Periphery Retina attached., Inferior-temporal Lattice degeneration Retina attached. Retinal tear at11 and 1:30, well surrounded by laser scars; Inferior Lattice degeneration OCT, Retina - OU - Both Eyes Right Eye Quality was good. Progression has no prior data. Findings include normal observations. Left Eye Quality was good. Progression has no prior data. Findings include epiretinal membrane. Notes No irf OCT-a no capillary loss DIAGNOSES: 1. Retinal tear of left eye OCT, RETINA - OU - BOTH EYES 2. PVD (posterior vitreous detachment), both eyes 3. Bilateral retinal lattice degeneration OCT, RETINA - OU - BOTH EYES 4. Epiretinal membrane (ERM) of left eye 5. Dry eye syndrome of both eyes Assessment Retinal tear(s) left eye Two??retinal??tear??(11 and 1:30) without detachment surrounded by laser??retinopexy scars No new tears. ?? Posterior vitreous detachment both eyes Longstanding right eye. June 2022 left eye, with vitreal heme which has cleared since then. Retina attached both eyes ?? Lattice degeneration both eyes No tears or traction right eye associated to lattice. Monitor Epiretinal membrane left eye Not visually significant Non-surgical Monitor Dry Eye Syndrome both eyes Secondary monocular diplopia With significant PEEs Defer to for further management Retinal detachment warnings discussed Return in 1 year (on 05/20/2024), or if symptoms worsen or fail to improve, for dilated exam, OCT. I am scribing for Dr. Tylor Bonilla MD while he is personally performing the service. JOSH Omer (Scribe) documented in this encounter Plan of Treatment Upcoming Encounters Date Type Department Care Team (Late st Contact Info) Description 04/02/2024 10:30 EDT Appointment [facility] Interventional Radiology Unit [address], [place] [phone] 04/02/2024 15:15 EDT Office Visit [facility] Surgical Oncology - [facility] [address], [place] [address] Adolfo Carreno MD 111 [facility], Level 2 [place] [phone] 04/05/2024 9:30 EDT Telemedicine [facility] - [facility] Palliative Care Services [address] [place], [place] [phone] Chichi Woods MD [address] [place] [address] [address] [place] [phone] 04/11/2024 15:00 EDT Telemedicine [facility] Hematology & Oncology - [address] 495341 Alisson Carreon MD [address] [place] [address], [address] [place] [phone] 04/13/2024 13:30 EDT Appointment [facility] Hematology & Oncology [address] [phone] 04/13/2024 14:00 EDT Appointment [facility] Hematology & Oncology [address] [id number] 04/16/2024 10:00 EST Telemedicine [facility] - [facility] Palliative Care Services [address] [place] [address] Chichi Woods MD [address] [place] [phone] 04/24/2024 9:00 EST Appointment [facility] Radiology CT Outpatient - [address] [id number] 04/24/2024 11:00 EST Appointment [facility] Breast Imaging - [address] [id number] 04/27/2024 12:00 EST Appointment [facility] Hematology & Oncology - [address] [phone] 05/02/2024 15:00 EST Telemedicine [facility] Hematology & Oncology - [address] [phone] Alisson Carreon MD 111 [facility], [address] [place] [phone] 05/04/2024 10:15 EST Ancillary Procedure [facility] Cardiology - [address] [place] [address] 05/04/2024 11:30 EST Appointment [facility] Hematology & Oncology - [address] [phone] 05/04/2024 12:00 EST Appointment [facility] Hematology & Oncology - [address] [phone] 06/12/2024 13:00 EST Appointment [facility] Radiology CT - [address] [phone] documented as of this encounter Procedures Procedure Name Priority Date/Time Associated Diagnosis Comments OCT, RETINA - OU - BOTH EYES Routine 05/20/2023 14:52 EST Retinal tear of left eye Bilateral retinal lattice degeneration documented in this encounter Results * OCT, RETINA - OU - BOTH EYES (05/20/2023 14:52 EST) Narrative [facility] OPHTHALMOLOGY - 05/20/2023 18:39 EST Right Eye Quality was good. Progression has no prior data. Findings include normal observations. Left Eye Quality was good. Progression has no prior data. Findings include epiretinal membrane. 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 Epiretinal membrane (ERM) of left eye Dry eye syndrome of both eyes documented in this encounter Eye Exam Visual Acuity (Snellen - Linear) Right eye Left eye Dist cc 20/20 20/70 Near la J3 Tonometry (Applanation, 13:17) Right eye Left eye Pressure 10 10 Pupils Pupils APD Right eye PERRL None Left eye PERRL None Neuro/Psych Oriented x3: Yes Mood/Affect: Normal Dilation Both eyes: Phenylephrine 2.5 %, Tropicamide 1% @ 13:17 Slit Lamp Exam Right eye Left eye Lids/Lashes Normal Normal Conjunctiva/Sclera White and quiet White and marisabel et Cornea Lasik flaps, 2+ Punc chowdhury epithelial erosions Lasik flaps, 2+ Punctate epithelial erosions Anterior Chamber Deep and quiet Deep and quiet Iris Dilated Dilated Lens Clear Clear Anterior Vitreous Posterior vitreous detachment Posterior vitreous detachment Fundus Exam Right eye Left eye Disc Tilted disc Tilted disc C/D Ratio 0.3 0.3 Macula Healthy Cellophane refle x Vessels Healthy Healthy Periphery Retina attached., In ferior-temporal Lattice degeneration Retina attached. Retinal tear at 11 and 1:30, well surrounded by laser scars; Inferior Lattice degeneration Care Teams Furnace Clerk Relationship Specialty Start Date End Date Linda Blancas MD [facility] [address] [place] [address] PCP - General 01/06/11 Adolfo Carreno MD [address] [place] [phone] General Surgery 04/26/19 Augustina Colin MD PhD [address] [place] [phone] Medical Oncology 04/26/19 documented as of this encounter
--- OUTSIDE RECORDS SUMMARY | 2024-03-20 14:44 | XMS_ITS | Encounter Summary ---
Author Organization [facility] Address [address] [place] [address] Care Team Providers Care Environmental Services Director Name Role Phone Linda Blancas MD Primary Care Provider [phone] Adolfo Carreno MD Unavailable [phone] Augustina Colin MD PhD Unavailable Unavailable Encounter Details Date Type Department Care Team (Late st Contact Info) Description 05/20/2023 Orders Only [facility] Hematology & Oncology - [facility] [address] [place] [address] Augustina Colin, PhD Social History Tobacco Use [...] Appointment [facility] Interventional Radiology Unit [address] [place] [phone] 04/02/2024 15:15 EDT Office Visit [facility] Surgical Oncology - [address] [phone] Adolfo Carreno MD [address] [place] [phone] 04/05/2024 9:30 EDT Telemedicine [facility] - [facility] Palliative Care Services [address] [place] [address] [phone] Chichi Woods MD [address] [place] [phone] 04/11/2024 15:00 EDT Telemedicine [facility] Hematology & Oncology [address] 000081 Alisson Carreon MD [address] [place] [phone] 04/13/2024 13:30 EDT Appointment [facility] Hematology & Oncology [address] [phone] 04/13/2024 14:00 EDT Appointment [facility] Hematology & Oncology [address] [phone] 04/16/2024 10:00 EST Telemedicine [facility] - [facility] Palliative Care Services [address] [place] [address] [phone] Chichi Woods MD [address] [place] [address], [address] [phone] 04/24/2024 9:00 EST Appointment [facility] Radiology CT Outpatient - [address] [id number] 04/24/2024 11:00 EST Appointment [facility] Breast Imaging - [facility] [address] [place] [address] [place], [place] [address] 04/27/2024 12:00 EST Appointment [facility] Hematology & Oncology - [address] [phone] 05/02/2024 15:00 EST Telemedicine [facility] Hematology & Oncology - [address] [address] Alisson Carreon MD [address] [place] [address], [facility], Level 2 [place] [phone] 05/04/2024 10:15 EST Ancillary Procedure [facility] Cardiology - [address] [place], [place] [phone] 05/04/2024 11:30 EST Appointment [facility] Hematology & Oncology - [address] [phone] 05/04/2024 12:00 EST Appointment [facility] Hematology & Oncology [address] [phone] 06/12/2024 13:00 EST Appointment [facility] Radiology CT - [address] [phone] documented as of this encounter Visit Diagnoses Not on filedocumented in this encounter Care Teams Environmental Services Director Relationship Specialty Start Date End Date Linda Blancas MD [facility] [address] [place] [address] PCP - General 01/06/11 Adolfo Carreno MD [address] [place] [address], [facility] 2 [place] [phone] General Surgery 04/26/19 Augustina Colin MD PhD [address] [place] [address], [facility] 2 [place] [phone] Medical Oncology 04/26/19 documented as of this encounter
--- OUTSIDE RECORDS SUMMARY | 2024-03-20 14:44 | XMS_ITS | Encounter Summary ---
Author Organization [facility] Address [address] [place] [address] Care Team Providers Care Sand Polisher Name Role Phone Linda Blancas MD Primary Care Provider [phone] Adolfo Carreno MD Unavailable [phone] Augustina Colin MD PhD Unavailable Unavailable Reason for Visit * Reason Comments IR Procedure Follow-up Encounter Details Date Type Department Care Team (Late st Contact Info) Description 05/25/2023 15:30 EST Telemedicine [facility] Interventional Radiology - [address] [phone] David Moya MD 111 [facility], Level 1 [place] [phone] Metastases to the liver (HCC-CMS) (Primary Dx) [...] Progress Notes * David Moya MD - 05/25/2023 1530 EST Subjective: Patient ID: Sunshine Pleitez is an 62 y.o. female. Chief Complaint Patient presents with IR Procedure Follow-up Type of visit: Televideo Medical oncologist: Augustina Gauthier HPI 62-year-old female with metastatic breast cancer being seen in follow-up following liver directed therapy. Patient with metastases to her mediastinum, cervical lymph nodes, lungs, liver, and bones, who developed liver specific disease progression in 2021. Patient was additionally experiencing significant side effects related to her chemotherapy dose. Because of the liver specific disease progression, desire to decrease her chemotherapy dose, the decision was made to proceed with liver directed therapy. On 04/08/2022, she underwent right lobar conventional dose transarterial radioembolization of the liver. This was followed 05/14/2022 with conventional dose transarterial radioembolization to the left lobe. Patient is overall feeling well. MRI of the liver performed 05/20/2023 reveals progressive disease throughout both lobes of the liver. Bone scan and chest CT are pending 05/27/2023. Labs from 05/20/2023 are significant for creatinine of 0.6, albumin 3.7, total bilirubin 1.2, platelets 122, INR 1.1. Patient Active Problem List Diagnosis [...] Primary malignant neoplasm of breast with metastasis ([facility]) Malignant neoplasm of female breast ([facility]) Encounter for palliative care Osteopenia S/P [...] fussion no issues currently 08/25/20 Breast cancer ([facility]) November 2003 DCIS - right breast Breast cancer, right ([facility]) Depression 08/25/20 well controlled Environmental allergies [...] - [place] no complications BREAST SURGERY 08/2018 review rn placed right breast - [place] no complications CARPAL TUNNEL RELEASE 200705/07/2019 beir block - no complications FOOT SURGERY 05/2021 right big toe fused, right little toe screw LIPOMA RESECTION 200005/07/2019 [place] no complications MASTECTOMY Right NC INSJ/RPLCMT BREAST IMPLANT Feb MASTECTOMY Bilateral 05/30/2019 Exchange right tissue review rn to silicone implant, exchange of left implant for matching performedby Tylor Boss MD at [facility] Family History Problem Relation Age [...] have been marked as taking for the 05/25/23 encounter (Telemedicine) withDavid Moya MD. Allergies Allergen Reactions Amoxicillin Other (See Comments) and Rash Red rash Sulfa (Sulfonamide Antibiotics) Hives Light lavender rash ROS - See HPI Objective: There were no vitals taken for this visit. Physical Exam Not performed Assessment: 62-year-old female with previous excellent response to transarterial radioembolization to the liver, now with progressive liver metastases. At this point, we still do not know if this is liver specific disease progression, or whether there has been disease progression at multiple metastatic sites. F ollowing restaging scans on 05/27/2023, anticipate further discussion with Dr. Colin regarding treatment options. If this is liver only disease progression, repeat radioembolization to the liver is possible, however carries a higher risk of radiation-induced liver disease (which can be fatal) fortunately, with dose adjustments, this is uncommon. The patient understands and is interested in pursuing additional liver directed therapy pending further discussion after her repeat scans later this week. Plan: Sunshine was seen today for ir procedure follow-up. Diagnoses and all orders for this visit: Metastases to the liver (HCC-CMS) Await follow-up scans later this week. David Moya MD ???I spent a total of 30 minutes on the date of this encounter meeting with the patient and reviewing documentation/coordinating care as described in the above note.?? TELEMEDICINE VIDEO VISIT Today's visit was provided through telemedicine video conferencing: I have reviewed the appropriateness of using video technology with the patient with regards to today's visit. The location of the patient : Home Patient location state: Visit Location State: [place] The location of the provider: Office Provider location state: Visit Location State: [place] The following people and their roles were present for today's visit: Appointment Provider: David Moya MD Geoffrey Michael Scriver, MD documented in this encounter Plan of Treatment Upcoming Encounters Date Type Department Care Team (Late st Contact Info) Description 04/02/2024 10:30 EDT Appointment [facility] Interventional Radiology Unit [address] [place] [address] 04/02/2024 15:15 EDT Office Visit [facility] Surgical Oncology - [address] [phone] Adolfo Carreno MD [address] [place] [address] [phone] 04/05/2024 9:30 EDT Telemedicine [facility] Palliative Care Services [address] [place] [address] [phone] Chichi Woods MD [address] [place] [phone] 04/11/2024 15:00 EDT Telemedicine [facility] Hematology & Oncology - [address] [address] Alisson Carreon MD [address] [place] [address] [phone] 04/13/2024 13:30 EDT Appointment [facility] Hematology & Oncology - [address] [phone] 04/13/2024 14:00 EDT Appointment [facility] Hematology & Oncology - [address] [address] 04/16/2024 10:00 EST Telemedicine [facility] Palliative Care Services [address] [place] [address] [phone] Chichi Woods MD [address] [place] [address] [phone] 04/24/2024 9:00 EST Appointment [facility] Radiology CT Outpatient - [address] [phone] 04/24/2024 11:00 EST Appointment [facility] Breast Imaging - [facility] [address] [place], [place] [address] 04/27/2024 12:00 EST Appointment [facility] Hematology & Oncology - [address] [address] 05/02/2024 15:00 EST Telemedicine [facility] Hematology & Oncology [address] [phone] Alisson Carreon MD [address] [place] [address] [phone] 05/04/2024 10:15 EST Ancillary Procedure [facility] Cardiology - [address] [place] [address] 05/04/2024 11:30 EST Appointment [facility] Hematology & Oncology - [address] [phone] 05/04/2024 12:00 EST Appointment [facility] Hematology & Oncology [address] [phone] 06/12/2024 13:00 EST Appointment [facility] Radiology CT - [address] [phone] documented as of this encounter Visit Diagnoses Diagnosis Metastases to the liver (HCC-CMS)- Primary Secondary malignant neoplasm of liver documented in this encounter Care Teams Sand Polisher Relationship Specialty Start Date End Date Linda Blancas MD [facility] [address] [place] [address] PCP - General 01/06/11 Adolfo Carreno MD [address] [place] [address] 2 [place] [phone] General Surgery 04/26/19 Augustina Colin MD PhD [address] [place] [address], [facility] 2 [place] [phone] Medical Oncology 04/26/19 documented as of this encounter
--- OUTSIDE RECORDS SUMMARY | 2024-03-20 14:44 | XMS_ITS | Encounter Summary ---
Author Organization [facility] Address [address] [place] [address] Care Team Providers Care Mine Analyst Name Role Phone Linda Blancas MD Primary Care Provider [phone] Adolfo Carreno MD Unavailable [phone] Augustina Colin MD PhD Unavailable Unavailable Reason for Referral * Radiology Services (Routine/Next Available) - Authorization Not Required Specialty Diagnoses / Procedures [facility] Referred To Contact Diagnoses Primary malignant neoplasm of breast with metastasis (HCC-CMS) Procedures IR BIOPSY Augustina Colin MD PhD [facility] Referral ID Status Reason Start Date Expiration Date Visits Requested Visits Authorized [id number] Authorization Not Required 3 1 1 Reason for Visit * Reason Comments Follow-up Encounter Details Date Type Department Care Team (Late st Contact Info) Description 05/31/2023 11:30 EST Telemedicine [facility] Hematology & Oncology - [address] [address] Augustina Colin, PhD Primary malignant neoplasm of breast with [...] Notes * Augustina Colin MD PhD - 05/31/2023 1130 EST REASON FOR OFFICE VISIT: Discussion of side effects related to anti estrogen therapy and scan results The concept of ???Telemedicine?? has been described [...] in patient???s medical or mental health care. PROBLEM LIST: 1. 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 a. Ultrasound performed in [place] identifying an irregular heterogeneous soft tissue mass measuring 1.2 x 1.2 x 1.5 cm. b. Two punch biopsies near the site of the skin changes the right breast perfomed by Dr Carreno 10/21/2016; Pathology identified an invasive ductal type carcinoma involving the epidermis and dermis ofthe skin, nuclear grade 2, which was ER+80%, HI+20%. HER-2 1+ by IHC. ANNE MARIE revealed [...] breast tumor 07/07/17 and placement of tissue plaster pattern caster. 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 Restaging scans: - MRI Abdomen 05/20/23 [...] have been a very subtle lytic metastasis. 11/26/21 - Stable to minimally decreased size of a solitary left upper lobe nodule since the most recent comparison study, etiology uncertain. This finding has been present since at least 10/30/2018; Stable mildly enlarged right internal mammary lymph node. - Nuclear Bone scan 11/24/22: New focus of radiotracer uptake in the left humeral head, may represent new metastatic disease or focus related to new rotator cuff disease or trauma. Slight increase in size of the right iliac lesion. 3. DCIS in 2003 at the age [...] Ms Morales presents to clinic to discuss effects related to capecitabine and scan results. She appears to have progression of liver mets on MR abdomen and likely CT chest as LN are noted to be increased in size. She met with Dr Moya last week. She has been on capecitabine for over a year. Currently it is Capecitabine 1500mg am 1500mg pm one week on one week off. She has some hand/foot redness minimal cracking. No diarrhea ROS: A 10 point review of systems [...] Caps by mouth 2 times daily. (Patient not taking: Reported on 05/20/2023) ibuprofen (MOTRIN) 200 mg tablet Take 2 Tablets by mouth as needed. MULTIVITS W-CA,FE,OTHER MIN (WOMEN'S DAILY FORMULA ORAL) Take by mouth daily. mv-mn/C/glutamin/lysin/fwuq300 (AIRBORNE, ASCORBATE SODIUM, ORAL) Take by mouth as needed. ondansetron (ZOFRAN-ODT) 8 mg disintegrating tablet Take 1 Tablet by mouth every 8 hours as needed for Nausea. prasterone, dhea, (INTRAROSA) 6.[address] 6.5 mg vaginally daily. RED YEAST RICE EXTRACT ORAL Take [...] this visit. Estimated body mass index is 24.53 kg/m?? as calculated from the following: Height as of 11/25/22: 155.4 cm (61.18). Weight as of 11/25/22: 59.2 kg (130 lb 9.6 oz). ECOG Performance Status: 0 General: Comfortable, cooperative and in no apparent distress NEURO: Alert and oriented x 3; Grossly neurologically intact DIAGNOSTIC DATA No visits with results within 1 Day(s) from this visit. Latest known visit with results is: Phlebotomy Only on 05/27/2023 Component Date Value Ref Range Status WBC 05/27/2023 5.84 4.00 - 12.40 K/cmm Final RBC 05/27/2023 3.48 (L) 3.86 - 5.04 M/cmm Final Hemoglobin 05/27/2023 12.8 11.6 - 15.2 g/dL Final HCT 05/27/2023 38.3 34.9 - 44.4 % Final MCV 05/27/2023 110 (H) 81 - 98 fL Final MCH 05/27/2023 36.8 (H) 26.7 - 33.3 pg Final MCHC 05/27/2023 33.4 32.1 - 35.9 g/dL Final RDW-CV 05/27/2023 16.7 (H) <14.7 % Final RDW-SD 05/27/2023 66.7 (H) <50.4 fl Final PLT 05/27/2023 132 (L) 141 - 377 K/cmm Final MPV 05/27/2023 10.4 9.5 - 12.7 fL Final % Neutrophils 05/27/2023 61.4 % Final % Lymphocytes 05/27/2023 24.1 % Final % Monocytes 05/27/2023 11.8 % Final % Eosinophils 05/27/2023 1.7 % Final % Basophils 05/27/2023 0.7 % Final % Immature Grans 05/27/2023 0.3 % Final Absolute Neutrophils 05/27/2023 3.58 2.20 - 8.85 K/cmm Final Absolute Lymphocytes 05/27/2023 1.41 1.09 - 3.30 K/cmm Final Absolute Monocytes 05/27/2023 0.69 0.10 - 0.80 K/cmm Final Absolute Eosinophils 05/27/2023 0.10 0.03 - 0.61 K/cmm Final ABS Basophils 05/27/2023 0.04 0.01 - 0.11 K/cmm Final Absolute Immature Grans 05/27/2023 0.02 0.00 - 0.06 K/cmm Final Type of Differential: 05/27/2023 Auto Final Sodium 05/27/2023 143 136 - 145 mmol/L Final Potassium 05/27/2023 5.0 3.5 - 5.0 mmol/L Final Chloride 05/27/2023 110 96 - 110 mmol/L Final CO2 Total 05/27/2023 28 22 - 32 mmol/L Final Glucose 05/27/2023 80 70 - 99 mg/dl Final BUN 05/27/2023 16 10 - 26 mg/dL Final Creatinine 05/27/2023 0.64 0.52 - 1.04 mg/dL Final eGFR 05/27/2023 100 >60 mL/min/1.73m2 Final Total Protein 05/27/2023 6.7 6.3 - 8.2 g/dL Final Albumin 05/27/2023 3.6 3.4 - 4.9 g/dL Final Alkaline Phosphatase 05/27/2023 163 (H) 38 - 126 U/L Final AST 05/27/2023 65 (H) 15 - 46 U/L Final ALT 05/27/2023 29 <35 U/L Final Bilirubin, Total 05/27/2023 1.2 <1.4 mg/dL Final Calcium 05/27/2023 9.1 8.5 - 10.5 mg/dL Final Albumin/Globulin Ratio 05/27/2023 1.2 1.0 - 2.5 g/dL Final Anion Gap 05/27/2023 5 5 - 14 mmol/L Final CA 27.29 05/27/2023 199.5 (H) <38.0 U/mL Final NOTE: Serum CA 27.29 concentration should not be interpreted as absolute evidence for the presence or absence of malignant disease. Assayed on Siemens ADVIA Centaur XPT using chemiluminescent technology. Values obtained by using different assay methods cannot be used interchangeably. ASSESSMENT: Ms Bernstein is a 62-year-old female with metastatic breast cancer. She is receiving capecitabine 1500mg am and 1500mg pm 1 week on 1 week off. She tolerates this dose. We recommendedcontinuing urea cream and adding diclofenac. Scan results suggest progression in liver and lymph nodes in chest. We will plan to biopsy lung. Elacestrant 345 mg daily . Elacestrant is associated withGI issues, hotflashes, hyponatremia, anemia, increased LFTs, fatigue. Zolendronic acid to every 3 mos for now. She takes a vitamin D supplement. PLAN: 1. Arrange for lung biopsy 2. Zoledronic acid q 3mo, next due Jul 2023; Continued Vit D supplementation 3. Nuclear bone scan Jun 2023. 4. Continued follow-up with Dr. Moya 6. FUR 4 weeks after biopsy. Continue capecitatibne for now TELEMEDICINE VIDEO VISIT Today's visit was provided through telemedicine video conferencing: I have reviewed the appropriateness of using video technology with the patient with regards to today's visit. The location of the patient : Home Patient location state: Visit Location State: [place] The location of the provider: Office Provider location state: Visit Location State: [place] The following people and their roles were present for today's visit: Appointment Provider: Augustina Colin MD PhD Augustina Colin MD PhD documented in this encounter Plan of Treatment Upcoming Encounters Date Type Department Care Team (Late st Contact Info) Description 04/02/2024 10:30 EDT Appointment [facility] Interventional Radiology Unit [address] [place] [address] [phone] 04/02/2024 15:15 EDT Office Visit [facility] Surgical Oncology - [address] [phone] Adolfo Carreno MD [address] [place] [address] [phone] 04/05/2024 9:30 EDT Telemedicine [facility] [address] [place] [address] [phone] Chichi Woods MD [address] [place] [address] [phone] 04/11/2024 15:00 EDT Telemedicine [facility] Hematology & Oncology - [address] [phone] Alisson Carreon MD [address] [place] [address] [phone] 04/13/2024 13:30 EDT Appointment [facility] Hematology & Oncology [address] [phone] 04/13/2024 14:00 EDT Appointment [facility] Hematology & Oncology [address] [phone] 04/16/2024 10:00 EST Telemedicine [facility] [address] [place] [address] [phone] Chichi Woods MD [address] [place] [address] [phone] 04/24/2024 9:00 EST Appointment [facility] Radiology CT Outpatient - [address] [address] 04/24/2024 11:00 EST Appointment [facility] Breast Imaging - [facility] [address] [address] 04/27/2024 12:00 EST Appointment [facility] Hematology & Oncology [address] [address] 05/02/2024 15:00 EST Telemedicine [facility] Hematology & Oncology [address] [phone] Alisson Carreon MD [address] [place] [address], Level [address] [place] [phone] 05/04/2024 10:15 EST Ancillary Procedure [facility] Cardiology [place] [address] 05/04/2024 11:30 EST Appointment [facility] Hematology & Oncology [address] [phone] 05/04/2024 12:00 EST Appointment [facility] Hematology & Oncology [address] [id number] 06/12/2024 13:00 EST Appointment [facility] Radiology CT - [address] [id number] documented as of this encounter Results * IR BIOPSY (06/16/2023 11:54 EST) Anatomical Region Laterality Modality Computed Tomogra phy 06/16/2023 14:5 8 EST Impressions 06/16/2023 14:[address]-guided 20-gauge core needle biopsy of a 6 mm nodule within the upper lobe of the left lung. [id number] Narrative 06/16/2023 14:[address]-guided left upper lung tumor 20-gauge core needle biopsy 06/16/2023 at 1115 hours HISTORY: 6 mm nodule within the peripheral axillary region of the upper lobe of the left lung. History of breast carcinoma. Please biopsy left lung tumor. Description: A time out was performed, with documentation of two patient identifiers, the correct procedure, and the correct site. Written consent was obtained. The patient was prepped and draped in sterile fashion. A time-out was performed, confirming the correct patient, the correct procedure, and the correct site. ??1% lidocaine was used for local analgesia. Conscious sedation was administered with the monitoring of the patient's heart rate, blood pressure, respiratory rate, and oxygen saturation. With the patient in the supine position, and utilizing sterile technique, local lidocaine anesthesia, and CT guidance, a 19-gauge guide needle was advanced into the peripheral margin of the 6 mm tumor within the upper lobe of the left lung. Multiple 20-gauge core needle biopsy samples were obtained and submitted to the pathology department in formalin. The needle was removed without difficulty. Post biopsy CT imaging demonstrated a stable surrounding focus of hemorrhage, but no pneumothorax or any other significant complication. The patient tolerated the procedure well. ??No complication occurred. ??The estimated blood loss during the procedure was zero. The DLP was 773. Procedure Note Mustapha Nguyen MD - 06/16/2023 CT-guided left upper lung tumor 20-gauge core needle biopsy 06/16/2023 [id number] hours HISTORY: 6 mm nodule within the peripheral axillary region of the upperlobe of the left lung. History of breast carcinoma. Please biopsy leftlung tumor. Description: A time out was performed, with documentation of two patientidentifiers, the correct procedure, and the correct site. Written consentwas obtained. The patient was prepped and draped in sterile fashion. Atime-out was performed, confirming the correct patient, the correctprocedure, and the correct site. 1% lidocaine was used for localanalgesia. Conscious sedation was administered with the monitoring of thepatient's heart rate, blood pressure, respiratory rate, and oxygensaturation. With the patient in the supine position, and utilizing sterile technique,local lidocaine anesthesia, and CT guidance, a 19-gauge guide needle wasadvanced into the peripheral margin of the 6 mm tumor within the upperlobe of the left lung. Multiple 20-gauge core needle biopsy samples wereobtained and submitted to the pathology department in formalin. The needlewas removed without difficulty. Post biopsy CT imaging demonstrated astable surrounding focus of hemorrhage, but no pneumothorax or any othersignificant complication. The patient tolerated the procedure well. No complication occurred. Theestimated blood loss during the procedure was zero. The DLP was 773. IMPRESSION Successful CT-guided 20-gauge core needle biopsy of a 6 mm nodule withinthe upper lobe of the left lung. [id number] Augustina Colin MD PhD IMG IR ORDERABLES documented in this encounter Visit Diagnoses Diagnosis Primary malignant neoplasm of breast with metastasis (HCC-CMS)- Primary Solitary lung nodule [R91.1]- Primary Solitary pulmonary nodule Primary malignant neoplasm of breast with metastasis (HCC-CMS) documented in this encounter Care Teams Mine Analyst Relationship Specialty Start Date End Date Linda Blancas MD [facility] [address] [place] [address] PCP - General 01/06/11 Adolfo Carreno MD [address] [place] [address] 2 [place] [phone] General Surgery 04/26/19 Augustina Colin MD PhD [address] [place] [address] 2 [place] [phone] Medical Oncology 04/26/19 documented as of this encounter
--- OUTSIDE RECORDS SUMMARY | 2024-03-20 14:44 | XMS_ITS | Encounter Summary ---
Author Organization [facility] Address [address] [place] [address] Care Team Providers Care Clasp Machine Operator Name Role Phone Linda Blancas MD Primary Care Provider [phone] Adolfo Carreno MD Unavailable [phone] Augustina Colin MD PhD Unavailable Unavailable Reason for Visit * Reason Onset Date Comments Appointment Related 05/27/2023 Encounter Details Date Type Department Care Team (Late st Contact Info) Description 05/27/2023 Telephone [facility] Cancer Center Hematology & Oncology - [place] [address] [place], [place] [address] Augustina Colin, PhD Appointment Related Social History [...] encounter Miscellaneous Notes * Telephone Encounter - [place] - 05/27/2023 9726 EST Pt confirmed rescheduling today's NM scan to 1/9 inj at 11:30/12 and scan at 2:30/3 (on wait list).Pt aware of msg to KD about f/u for NM (add her on vs phone call vs pt gets in sooner and can zoom 4). documented in this encounter Plan of Treatment Upcoming Encounters Date Type Department Care Team (Late st Contact Info) Description 04/02/2024 10:30 EDT Appointment [facility] Interventional Radiology Unit [address] [place] [address] [phone] 04/02/2024 15:15 EDT Office Visit [facility] Surgical Oncology - [address] [phone] Adolfo Carreno MD [address] [facility], Level [address] [place] [phone] 04/05/2024 9:30 EDT Telemedicine [facility] - [facility] [address] [place], [place] 049691 Chichi Woods MD 111 [facility], [address] [phone] 04/11/2024 15:00 EDT Telemedicine [facility] Hematology & Oncology - [facility] [address] [place], [place] 355141 Alisson Carreon MD [address] [place] [address], [facility] [address] [place] [phone] 04/13/2024 13:30 EDT Appointment [facility] Hematology & Oncology [address] [phone] 04/13/2024 14:00 EDT Appointment [facility] Hematology & Oncology - [address] [phone] 04/16/2024 10:00 EST Telemedicine [facility] - [facility] [address] [place] [address] [phone] Chichi Woods MD [address] [place] [address] [phone] 04/24/2024 9:00 EST Appointment [facility] Radiology CT Outpatient - [address] [id number] 04/24/2024 11:00 EST Appointment [facility] Breast Imaging - [address] [phone] 04/27/2024 12:00 EST Appointment [facility] Hematology & Oncology - [address] [phone] 05/02/2024 15:00 EST Telemedicine [facility] Hematology & Oncology - [address] [phone] Alisson Carreon MD [address] [place] [address], [facility] [address] [place] [phone] 05/04/2024 10:15 EST Ancillary Procedure [facility] Cardiology - [address] [place], [place] [phone] 05/04/2024 11:30 EST Appointment [facility] Hematology & Oncology - [address] [address] 05/04/2024 12:00 EST Appointment [facility] Hematology & Oncology - [address] [address] 06/12/2024 13:00 EST Appointment [facility] Radiology CT - [address] [address] documented as of this encounter Visit Diagnoses Not on filedocumented in this encounter Care Teams Clasp Machine Operator Relationship Specialty Start Date End Date Linda Blancas MD [facility] [address] [place] [address] PCP - General 01/06/11 Adolfo Carreno MD [address] [place] [address] 2 [place] [phone] General Surgery 04/26/19 Augustina Colin MD PhD [address] [place] [phone] Medical Oncology 04/26/19 documented as of this encounter
--- OUTSIDE RECORDS SUMMARY | 2024-03-20 14:44 | XMS_ITS | Encounter Summary ---
Author Organization [facility] Address [address] [place] [address] Care Team Providers Care Manager Protein Name Role Phone Linda Blancas MD Primary Care Provider [phone] Adolfo Carreno MD Unavailable [phone] Augustina Colin MD PhD Unavailable Unavailable Reason for Visit * Reason Onset Date Comments Coordination Of Care 04/15/2023 Encounter Details Date Type Department Care Team (Late st Contact Info) Description 04/15/2023 Telephone [facility] Cancer Center Hematology & Oncology - [facility] [address] [place], [place] [phone] Kaylah Stevens, RN Coordination Of Care Social History Tobacco [...] Telephone Encounter - Kaylah Stevens RN - 04/15/2023 1132 EDT Standing lab orders placed per Dr. Colin for pt's tumor marker to be checked every other month. documented in this encounter Plan of Treatment Upcoming Encounters Date Type Department Care Team (Late st Contact Info) Description 04/02/2024 10:30 EDT Appointment [facility] Interventional Radiology Unit [address] [place] [address] [phone] 04/02/2024 15:15 EDT Office Visit [facility] Surgical Oncology - [address] [phone] Adolfo Carreno MD [address] [place] [address] [phone] 04/05/2024 9:30 EDT Telemedicine [facility] - [facility] Palliative Care Services [address] [place] [address] [phone] Chichi Woods MD [address] [place] [address], [address] [phone] 04/11/2024 15:00 EDT Telemedicine [facility] Hematology & Oncology - [address] [phone] Alisson Carreon MD [address] [place] [phone] 04/13/2024 13:30 EDT Appointment [facility] Hematology & Oncology - [address] [phone] 04/13/2024 14:00 EDT Appointment [facility] Hematology & Oncology [address] [phone] 04/16/2024 10:00 EST Telemedicine [facility] - [facility] Palliative Care Services [address] [place] [address] [phone] Chichi Woods MD [address] [place] [address] [phone] 04/24/2024 9:00 EST Appointment [facility] Radiology CT Outpatient - [address] [phone] 04/24/2024 11:00 EST Appointment [facility] Breast Imaging - [facility] [place] [address] [place], [place] 471551 04/27/2024 12:00 EST Appointment [facility] Hematology & Oncology [address] [phone] 05/02/2024 15:00 EST Telemedicine [facility] Hematology & Oncology - [address] [phone] Alisson Carreon MD [address] [place] [address], Level [address] [place] [phone] 05/04/2024 10:15 EST Ancillary Procedure [facility] Cardiology - [address] [address] 05/04/2024 11:30 EST Appointment [facility] Hematology & Oncology [address] 134801 05/04/2024 12:00 EST Appointment [facility] Cancer Center Hematology & Oncology - [address] [address] 06/12/2024 13:00 EST Appointment [facility] Radiology CT - [address] [address] documented as of this encounter Visit Diagnoses Diagnosis Malignant neoplasm of right female breast, unspecified estrogen receptor status, unspecified site of breast ([facility])- Primary documented in this encounter Care Teams Manager Protein Relationship Specialty Start Date End Date Linda Blancas MD [facility] [address] [place] [address] PCP - General 01/06/11 Adolfo Carreno MD [address] [place] [address], [facility] 2 [place] [phone] General Surgery 04/26/19 Augustina Colin MD PhD [address] [place] [address] 2 [place] [phone] Medical Oncology 04/26/19 documented as of this encounter
--- OUTSIDE RECORDS SUMMARY | 2024-03-20 14:44 | XMS_ITS | Encounter Summary ---
Author Organization [facility] Address [address] [place] [address] Care Team Providers Care Assistant Superintendent Name Role Phone Linda Blancas MD Primary Care Provider [phone] Adolfo Carreno MD Unavailable [phone] Augustina Colin MD PhD Unavailable Unavailable Encounter Details Date Type Department Care Team (Late st Contact Info) Description 04/04/2023 16:30 EDT Phlebotomy Only [facility] 2 Phlebotomy [address] [place], [place] 8[address] Immigration Guard, Acc Phlebotomy Malignant neoplasm of right female breast, unspecified estrogen receptor status, unspecified site of breast (HCC-CMS); Metastasis to bone (HCC-CMS) Social History Tobacco Use Types Packs/Day [...] Appointment [facility] Interventional Radiology Unit [address] [place] [address] [id number] 04/02/2024 15:15 EDT Office Visit [facility] Surgical Oncology - [address] [phone] Adolfo Carreno MD [address] [place] [address] 2 [place] [phone] 04/05/2024 9:30 EDT Telemedicine [facility] - [facility] Palliative Care Services [address] [place] [address] [phone] Chichi Woods MD [address] [place] [address], [address] [phone] 04/11/2024 15:00 EDT Telemedicine [facility] Hematology & Oncology [address] 837861 Alisson Carreon MD [address] [place] [address] 2 [place] [phone] 04/13/2024 13:30 EDT Appointment [facility] Hematology & Oncology [address] [phone] 04/13/2024 14:00 EDT Appointment [facility] Hematology & Oncology - [address] [phone] 04/16/2024 10:00 EST Telemedicine [facility] - [facility] Palliative Care Services [address] [place] [address] Chichi Woods MD 111 [facility], [address] [phone] 04/24/2024 9:00 EST Appointment [facility] Radiology CT Outpatient - [address] [id number] 04/24/2024 11:00 EST Appointment [facility] Breast Imaging - [facility] [place] 1 [place], [place] [phone] 04/27/2024 12:00 EST Appointment [facility] Hematology & Oncology - [address] [id number] 05/02/2024 15:00 EST Telemedicine [facility] Hematology & Oncology - [address] [phone] Alisson Carreon MD [address] [place] [address], [facility], Level 2 [place] [phone] 05/04/2024 10:15 EST Ancillary Procedure [facility] Cardiology [place] [place] [address] 05/04/2024 11:30 EST Appointment [facility] Hematology & Oncology - [address] [phone] 05/04/2024 12:00 EST Appointment [facility] Hematology & Oncology - [address] [address] 06/12/2024 13:00 [facility] Rad[facility] - [address] [id number] documented as of this encounter Procedures Procedure Name Priority Date/Time Associated Diagnosis Comments COMPREHENSIVE METABOLIC PANEL (ONCOLOGY USE ONLY-INC MG) STAT 04/04/2023 16:53 EDT Malignant neoplasm of right female breast, unspecified estrogen receptor status, unspecified site of breast (HCC-CMS) CA 27.29 STAT 04/04/2023 16:53 EDT Malignant neoplasm of right female breast, unspecified estrogen receptor status, unspecified site of breast (HCC-CMS) Metastasis to bone (HCC-CMS) COMPLETE BLOOD COUNT AND DIFFERENTIAL STAT 04/04/2023 16:53 EDT Malignant neoplasm of right female breast, unspecified estrogen receptor status, unspecified site of breast (HCC-CMS) documented in this encounter Results * (ABNORMAL) CA 27.29 (04/04/2023 16:53 EDT) CA 27.29 120.1(H) <38.0 U/mL 04/06/2023 9:28 EDT [facility] Comment: NOTE: Serum CA 27.29 concentration should not be interpreted as absolute evidence for the presence or absence of malignant disease. Assayed on Siemens ADVIA Centaur XPT using chemiluminescent technology. ??Values obtained by using different assay methods cannot be used interchangeably. Blood VENOUS BLOOD / Unknown Venipuncture / Unknown 04/04/2023 16:53 EDT 04/04/2023 16:58 EDT Augustina Colin MD PhD CHEMISTRY & BLOOD GA S ORDERABLES [facility] [address] [place] [address] * (ABNORMAL) COMPREHENSIVE METABOLIC PANEL (ONCOLOGY USE ONLY-INC MG) (04/04/2023 16:53 EDT) Sodium 141 136 - 145 mmol/L 04/04/2023 17:24 EDT [facility] Potassium 4.0 3.5 - 5.0 mmol/L 04/04/2023 17:24 [facility] Chloride 110 96 - 110 mmol/L 04/04/2023 17:24 [facility] CO2 Total 22 22 - 32 mmol/L 04/04/2023 17:24 [facility] Glucose 108(H) 70 - 99 mg/dl 04/04/2023 17:24 [facility] BUN 18 10 - 26 mg/dL 04/04/2023 17:24 [facility] Creatinine 0.74 0.52 - 1.04 mg/dL 04/04/2023 17:24 [facility] eGFR 92 >60 mL/min/1.7 3m2 04/04/2023 17:24 [facility] Total Protein 6.4 6.3 - 8.2 g/dL 04/04/2023 17:24 [facility] Albumin 3.6 3.4 - 4.9 g/dL 04/04/2023 17:24 [facility] Alkaline Phosphatase 149(H) 38 - 126 U/L 04/04/2023 17:24 [facility] AST 57(H) 15 - 46 U/L 04/04/2023 17:24 [facility] ALT 34 <35 U/L 04/04/2023 17:24 [facility] Bilirubin, Total 0.9 <1.4 mg/dL 04/04/20 17:24 [facility] Calcium 8.8 8.5 - 10.5 mg/dL 04/04/2023 17:24 [facility] Magnesium 2.0 1.7 - 2.8 mg/dL 04/04/2023 17:24 [facility] Albumin/Globulin Ratio 1.3 1.0 - 2.5 g/dL 04/04/2023 17:24 [facility] Anion Gap 9 5 - 14 mmol/L 04/04/2023 17:24 [facility] Blood VENOUS BLOOD / Unknown Venipuncture / Unknown 04/04/2023 16:53 EDT 04/04/2023 16:58 EDT Augustina Colin MD PhD CHEMISTRY & BLOOD GA S ORDERABLES [facility] [address] [place] [address] * (ABNORMAL) COMPLETE BLOOD COUNT AND DIFFERENTIAL (04/04/2023 16:53 EDT) WBC 5.56 4.00 - 12.40 K/cmm 04/04/2023 17:21 [facility] RBC 3.11(L) 3.86 - 5.04 M/cmm 04/04/2023 17:21 [facility] Hemoglobin 11.9 11.6 - 15.2 g/dL 04/04/2023 17:21 [facility] HCT 33.5(L) 34.9 - 44.4 % 04/04/2023 17:21 [facility] MCV 108(H) 81 - 98 fL 04/04/2023 17:21 [facility] MCH 38.3(H) 26.7 - 33.3 pg 04/04/2023 17:21 [facility] MCHC 35.5 32.1 - 35.9 g/dL 04/04/2023 17:21 [facility] RDW-CV 16.2(H) <14.7 % 04/04/2023 17:21 [facility] RDW-SD 63.5(H) <50.4 fl 04/04/2023 17:21 [facility] PLT 114(L) 141 - 377 K/cmm 04/04/2023 17:21 [facility] MPV 10.7 9.5 - 12.7 fL 04/04/2023 17:21 [facility] % Neutrophils 71.9 % 04/04/2023 17:21 [facility] % Lymphocytes 14.2 % 04/04/2023 17:21 [facility] % Monocytes 11.9 % 04/04/2023 17:21 [facility] % Eosinophils 1.1 % 04/04/2023 17:21 [facility] % Basophils 0.4 % 04/04/2023 17:21 [facility] % Immature Grans 0.5 % 04/04/20 17:21 [facility] Absolute Neutrophils 4.00 2.20 - 8.85 K/cmm 04/04/2023 17:21 [facility] Absolute Lymphocytes 0.79(L) 1.09 - 3.30 K/cmm 04/04/2023 17:21 [facility] Absolute Monocytes 0.66 0.10 - 0.80 K/cmm 04/04/2023 17:21 [facility] Absolute Eosinophils 0.06 0.03 - 0.61 K/cmm 04/04/2023 17:21 [facility] ABS Basophils 0.02 0.01 - 0.11 K/cmm 04/04/2023 17:21 [facility] Absolute Immature Grans 0.03 0.00 - 0.06 K/cmm 04/04/2023 17:21 [facility] Type of Differential: Auto 04/04/2023 17:21 [facility] Blood VENOUS BLOOD / Unknown Venipuncture / Unknown 04/04/2023 16:53 EDT 04/04/2023 17:00 EDT Augustina Colin MD PhD PACKAGES & DNA PROBE ORDERABLES [facility] [address] [place] [address] documented in this encounter Visit Diagnoses Diagnosis Malignant neoplasm of right female breast, unspecified estrogen receptor status, unspecified site of breast (HCC-CMS) Metastasis to bone (HCC-CMS) Secondary malignant neoplasm of bone and bone marrow documented in this encounter Care Teams Assistant Superintendent Relationship Specialty Start Date End Date Linda Blancas MD [facility] [address] [place] [address] PCP - General 01/06/11 Adolfo Carreno MD [address] [place] [phone] General Surgery 04/26/19 Augustina Colin MD PhD [address] [place] [phone] Medical Oncology 04/26/19 documented as of this encounter
--- OUTSIDE RECORDS SUMMARY | 2024-03-20 14:44 | XMS_ITS | Encounter Summary ---
Author Organization [facility] Address [address] [place] [address] Care Team Providers Care Bore Mill Operator For Plastic Name Role Phone Linda Blancas MD Primary Care Provider Adolfo Carreno MD Unavailable [phone] Augustina Colin MD PhD Unavailable Unavailable Encounter Details Date Type Department Care Team (Late st Contact Info) Description 04/04/2023 Orders Only [facility] Hematology & Oncology - [facility] [address] [place] [address] Augustina Colin, PhD Malignant neoplasm of right female breast, unspecified estrogen receptor status, unspecified site of breast (HCC-CMS) (Primary Dx); Metastasis to bone (HCC-CMS) Social History Tobacco [...] as of this encounter Progress Notes * Bladimir Lamas RN - 04/04/2023 1618 EDT Order in for CA 27-29 due to previous order not active per our lab. Order in at this time.---SHELLEY Quick 04/04/2023 at 16:20. documented in this encounter Plan of Treatment Upcoming Encounters Date Type Department Care Team (Late st Contact Info) Description 04/02/2024 10:30 EDT Appointment [facility] Interventional Radiology Unit [address] [place] [address] [phone] 04/02/2024 15:15 EDT Office Visit [facility] Surgical Oncology - [address] [phone] Adolfo Carreno MD 111 [facility], [facility] 2 [place] [phone] 04/05/2024 9:30 EDT Telemedicine [facility] - [facility] Palliative Care Services [address] [place], [place] 891651 Chichi Woods MD [address] [place] [phone] 04/11/2024 15:00 EDT Telemedicine [facility] Hematology & Oncology - [address] [phone] Alisson Carreon MD 111 [facility], [facility] 2 [place] [phone] 04/13/2024 13:30 EDT Appointment [facility] Hematology & Oncology - [address] [phone] 04/13/2024 14:00 EDT Appointment [facility] Hematology & Oncology - [address] [phone] 04/16/2024 10:00 EST Telemedicine [facility] - [facility] Palliative Care Services [address] [place] [address] [phone] Chichi Woods MD [address] [place] [address], [address] [phone] 04/24/2024 9:00 EST Appointment [facility] Radiology CT Outpatient - [address] [id number] 04/24/2024 11:00 EST Appointment [facility] Breast Imaging - [facility] S [address] [id number] 04/27/2024 12:00 EST Appointment [facility] Hematology & Oncology - [address] [phone] 05/02/2024 15:00 EST Telemedicine [facility] Hematology & Oncology - [address] 339131 Alisson Carreon MD [address] [place] [address], Level [address] [place] [phone] 05/04/2024 10:15 EST Ancillary Procedure [facility] Cardiology - [address] [place], [place] [phone] 05/04/2024 11:30 EST Appointment [facility] Hematology & Oncology - [facility] [address] [place], [place] [address] 05/04/2024 12:00 EST Appointment [facility] Hematology & Oncology [facility] [address] [place], [place] 124041 06/12/2024 13:00 EST Appointment [facility] Radiology CT - [address] [phone] documented as of this encounter Results * (ABNORMAL) CA 27.29 (04/04/2023 16:53 EDT) CA 27.29 120.1(H) <38.0 U/mL 04/06/2023 9:28 EDT [facility] Comment: NOTE: Serum CA 27.29 concentration should not be interpreted as absolute evidence for the presence or absence of malignant disease. Assayed on Siemens ADVIA [employer]Parade Picturesaur XPT using chemiluminescent technology. ??Values obtained by using different assay methods cannot be used interchangeably. Blood VENOUS BLOOD / Unknown Venipuncture / Unknown 04/04/2023 16:53 EDT 04/04/2023 16:58 EDT Augustina Colin MD PhD CHEMISTRY & BLOOD GA S ORDERABLES [facility] [address] [place] [address] documented in this encounter Visit Diagnoses Diagnosis Malignant neoplasm of right female breast, unspecified estrogen receptor status, unspecified site of breast (HCC-CMS)- Primary Metastasis to bone (HCC-CMS) Secondary malignant neoplasm of bone and bone marrow documented in this encounter Care Teams Bore Mill Operator For Plastic Relationship Specialty Start Date End Date Linda Blancas MD [facility] [address] [place] [address] PCP - General 01/06/11 Adolfo Carreno MD [address] [place] [address], [facility], Level [address] [place] [phone] General Surgery 04/26/19 Augustina Colin MD PhD [address] [place] [address] 2 [place] [phone] Medical Oncology 04/26/19 documented as of this encounter
--- OUTSIDE RECORDS SUMMARY | 2024-03-20 14:44 | XMS_ITS | Encounter Summary ---
Author Organization [facility] Address [address] [place] [address] Care Team Providers Care Traffic Analyst Name Role Phone Linda Blancas MD Primary Care Provider [phone] Adolfo Carreno MD Unavailable [phone] Augustina Colin MD PhD Unavailable Unavailable Reason for Referral * Radiology Services (Routine/Next Available) - Authorization Not Required Specialty Diagnoses / Procedures Referred By [facility] t Referred To Contact Radiology Diagnoses Metastases to the liver (HCC-CMS) Procedures MR ABDOMEN W WO CONTRAST David Moya MD [address] [place] [phone] [facility] Referral ID Status Reason Start Date Expiration Date Visits Requested Visits Authorized [id number] Authorization Not Required 3 1 1 Encounter Details Date Type Department Care Team (Late st Contact Info) Description 06/01/2023 Orders Only [facility] [place] [address] David Moya MD [address] [place], [place] [phone] Metastases to the liver (HCC-CMS) (Primary Dx) [...] [facility] Interventional Radiology Unit [address] [place] [address] 04/02/2024 15:15 EDT Office Visit [facility] Surgical Oncology - [facility] [address] [phone] Adolfo Carreno MD 111 [facility], Level 2 [place] [phone] 04/05/2024 9:30 EDT Telemedicine [facility] Palliative Care Services [address] [place] [address] Chichi Woods MD [address] [phone] 04/11/2024 15:00 EDT Telemedicine [facility] Hematology & Oncology - [address] [phone] Alisson Carreon MD [address] [place] [address], [facility] 2 [place] [phone] 04/13/2024 13:30 EDT Appointment [facility] Hematology & Oncology - [address] [phone] 04/13/2024 14:00 EDT Appointment [facility] Hematology & Oncology [address] [id number] 04/16/2024 10:00 EST Telemedicine [facility] - [facility] Palliative Care Services [address] [place] [address] [phone] Chichi Woods MD [address] [place] [address], [address] [phone] 04/24/2024 9:00 EST Appointment [facility] Radiology CT Outpatient - [address] [id number] 04/24/2024 11:00 EST Appointment [facility] Breast Imaging - [address] [phone] 04/27/2024 12:00 EST Appointment [facility] Hematology & Oncology - [address] [id number] 05/02/2024 15:00 EST Telemedicine [facility] Hematology & Oncology - [address] [phone] Alisson Carreon MD [address] [place] [address], [facility] 2 [place] [phone] 05/04/2024 10:15 EST Ancillary Procedure [facility] Cardiology - [address] [place] [address] 05/04/2024 11:30 EST Appointment [facility] Hematology & Oncology [address] [id number] 05/04/2024 12:00 EST Appointment [facility] Hematology & Oncology [address] [id number] 06/12/2024 13:00 EST Appointment [facility] Radiology CT - [address] [phone] documented as of this encounter Results * MR ABDOMEN W [...] the localizer sequences and not well assessed. [id number] Narrative 08/31/2023 13:50 EDT MR ABDOMEN W [...] metastasis is only included on the large [id number] localizer sequences and is not well evaluated [...] bone metastasis is only included on thelarge [id number] localizer sequences and is not well evaluated [...] on the localizer sequences andnot well assessed. [id number] David Moya MD [facility] MRI JAIMEE ACOSTA documented in this encounter Visit Diagnoses Diagnosis Metastases to the liver (HCC-CMS)- Primary Secondary malignant neoplasm of liver Metastases to the liver (HCC-CMS) Secondary malignant neoplasm of liver documented in this encounter Care Teams Traffic Analyst Relationship Specialty Start Date End Date Linda Blancas MD [address] [place] [address] PCP - General 01/06/11 Adolfo Carreno MD [address] [place] [address] 2 [place] [phone] General Surgery 04/26/19 Augustina Colin MD PhD [address] [place] [phone] Medical Oncology 04/26/19 documented as of this encounter
--- OUTSIDE RECORDS SUMMARY | 2024-03-20 14:44 | XMS_ITS | Encounter Summary ---
Author Organization [facility] Address [address] [place] [address] Care Team Providers Care [employer] Assistant Name Role Phone Linda Blancas MD Primary Care Provider [phone] Adolfo Carreno MD Unavailable [phone] Augustina Colin MD PhD Unavailable Unavailable Reason for Referral * Radiology Services (Routine/Next Available) - Authorization Not Required Specialty Diagnoses / Procedures [facility] Referred To Contact Diagnoses Primary malignant neoplasm of breast with metastasis (HCC-CMS) Procedures IR BIOPSY Augustina Colin MD PhD [facility] Referral ID Status Reason Start Date Expiration Date Visits Requested Visits Authorized [id number] Authorization Not Required 3 1 1 Reason for Visit * Radiology Services (Routine/Next Available) - Authorization Not Required Specialty Diagnoses / Procedures [facility] Referred To Contact Diagnoses Primary malignant neoplasm of breast with metastasis (HCC-CMS) Procedures IR BIOPSY Augustina Colin MD PhD [facility] Referral ID Status Reason Start Date Expiration Date Visits Requested Visits Authorized [id number] Authorization Not Required 3 1 1 Encounter Details Date Type Department Care Team (Late st Contact Info) Description 06/16/2023 8:51 EST - 06/16/2023 13:53 EST Hospital Encounter [facility] Interventional Radiology Unit [address] [place] [address] Mustapha Nguyen MD 111 [facility] [address] [place] [phone] Tal Kay MD [address] [place], [place] [id number] Solitary lung nodule [R91.1] (Primary Dx); Primary malignant neoplasm of breast [...] Sign Reading Time Taken Comments Blood Pressure 123/66 06/16/2023 1330 EST Pulse - - Temperature 36.2 ??C (97.1 ??F) 06/16/2023 1206 EST Respiratory Rate 14 06/16/2023 1230 EST Oxygen Saturation 98% 06/16/2023 1330 EST Inhaled Oxygen Concentration - - Weight 60.3 kg (133 lb) 06/16/2023 0915 EST Height 154.9 cm (5' 1) 06/16/2023 0915 EST Body Mass Index 25.13 06/16/2023 0915 EST documented in this encounter Functional Status [...] this encounter Discharge Instructions * Discharge Instructions* Leticia Soliz RN - 06/16/2023 11:36 EST Interventional Radiology Discharge Instructions Following Your Lung Biopsy Date: 06/16/2023 Procedure Site - Left chest Provider - Mustapha Nguyen MD The results of your procedure will go to the provider who ordered the procedure. It may take 5-7 days for procedure results to come back. Aftercare: Today: If you have received sedation for your procedure, do not drive or make any legal decisions for 24 hours after your procedure. Activity: Leave the hospital In a wheelchair even if you feel well. Have someone drive you home. Rest today - you may resume normal activity tomorrow. Do not lift anything over 10 lbs for 24 Hours. Diet: You may resume your usual diet. Do not drink alcohol for 24 hours. Medications: YES hold medication Do not take full strength Asprin (325 mg) or any NSAID medications for 24 hours (ibuprofen/Advil or Motrin, Aleve/naproxen) after your procedure. Bandage Check the dressing or Band-Aid throughout the day for any increase in drainage. Keep the Band-Aid or dressing dry for 24 hours, and replace it if necessary. If you notice any bleeding, apply pressurefor 10 minutes and slowly release the pressure to see if the bleeding has stopped. Showering Do not take a shower until 24 hours after your procedure. After this time you may shower after removing the dressing. Gently wash your wound site with soap and water. You may keep the wound site opento air, or use a bandaid to cover the site if there is any drainage. Do not take a tub bath, swim, or soak in a hot tub for 5 days. When to Contact the [facility] (call 911 for severe symptoms): 1. Increased shortness of breath 2. Chest, upper back, or shoulder pain (take tylenol for mild pain) 3. If you cough up more than 2 tablespoons of blood 4. Dizziness 5. Heavy bleeding at wound site 6. Symptoms of infection: pain, redness, drainage or swelling at the puncture site or if you develop a fever greater than 101F (38.5C) and/or shaking chills. IF YOU HAVE ANY QUESTIONS OR CONCERNS [...] site of breast ([facility]-CMS) Take 3 Tablets by mouth every 12 [...] Tablets by mouth as needed. 12/07/2023 mv-mn/C/glutamin/lysin/h qop562 (AIRBORNE, ASCORBATE SODIUM, ORAL) Take by mouth [...] documented in this encounter Progress Notes * Anusha Victor RN - 06/16/2023 0900 EST Phone call to pt to direct her to Mychart prep instructions. VM received. I've left a message for pt to check mychart and email with any questions. * Edith Bojorquez RN - 06/16/2023 0900 EST Sunshine Pleitez arrived to the Cardiovascular Unit via ambulation. Patient alert and oriented x3. Transfers to stretcher independently. Patient stretcher in low position with side rails up & call pak within patient reach. Patient's discharge plan is home with , Nitish. Have you had any recent changes to your health, colds, fevers or flu-like symptoms in the past few weeks? YES/NO: No * Leticia Soliz RN - 06/16/2023 0900 EST Procedure: BELKIS Lung Bx Pt received from CVU to 25 at 1103. Name and verified using armband and verbally. Patient is alert and oriented x 4, able to follow commands with all extremities, able to make needs known. Patient educated on procedure and sedation side effects explained, patient verbalized understanding. Consent completed and verified. No complaints of pain. Allergies, medications, and lab results reviewed-IV site checked for patency. Pt in supine position on table, safety straps in place. VS assessed. Conscious sedation started. Patient monitored through out procedure. Sterile prep of L upper chest with duraprep by CSM in the usual sterile fashion in compliance with manufacturers recommendation. Time out done with all staff in room prior to start of procedure (MILAGRO, JON, and Dr. Nguyen as supervising provider). CT guidance utilized to access BELKIS of the lung. Samples collected and sent to the lab. Puncture site dressed with a [id number] Dr. Nguyen was present from start of sedation 28 min of sedation time Medication administration IV Versed 1.5 mg IV Fentanyl 75 mcg Follow up: Please check and release sign & held post procedure orders. Patient should remain NPO and on 2L NC until post procedure chest x-ray is read by radiology and cleared. Discharge instructions placed in the pt's chart. Report given to CVU RN. Patient transferred in baseline/stable condition. documented in this encounter H&P Notes * Tal Kay MD - 06/16/2023 0900 EST Sedation for Procedure History & Physical Date: 06/16/2023 Time: 11:05 Location: Planned Procedure: CT BELKIS Nodule Biopsy Chief Complaint/Indications for Procedure: Enlarging BELKIS Nodule History: 62 y/o F with a PMH of metastatic breast cancer, with recent MRI of the abdomen showing concern for progressive metastatic disease, and a recent CT chest showing enlargement of a BELKIS nodule. Previous Complication with Sedation and/or Anesthesia? No Allergies: Allergies Allergen Reactions Amoxicillin Other (See Comments) and Rash Red rash Sulfa (Sulfonamide Antibiotics) Hives Light lavender rash Sulfamethoxazole-Trimethoprim Rash Current Medications: (Not in a hospital admission) Past Medical History: Past Medical History: Diagnosis Date Acquired spondylolisthesis Activity, other involving cardiorespiratory exercise snow shoeing Allergy Arthritis right big toe Back pain spinal fussion no issues currently 08/25/20 Breast cancer ([facility]) November 2003 DCIS - right breast Breast cancer, right ([facility]) Depression 08/25/20 well controlled Environmental allergies Exercise involving walking GERD (gastroesophageal reflux disease) well controlled 08/25/20 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 History of general anesthesia Lumbar radicular syndrome Nausea & vomiting Numbness Wears glasses Social History: Past Surgical History: Procedure Laterality Date BACK SURGERY December 2011 L3 - S1 spinal decompression and fusion - pt has hardware in place-[place] no complications BREAST RECONSTRUCTION 01/30/2004 subpectoral implant - [place] no complications BREAST RECONSTRUCTION 05/2018 right - [place] no complications BREAST SURGERY 01/30/2004 Right mastectomy - [place] no complications BREAST SURGERY 08/2018 expert medical writer placed right breast - [place] no complications CARPAL TUNNEL RELEASE 200705/07/2019 beir block - no complications FOOT SURGERY 05/2021 right big toe fused, right little toe screw LIPOMA RESECTION 200005/07/2019 [place] no complications MASTECTOMY Right IL INSJ/RPLCMT BREAST IMPLANT Feb MASTECTOMY Bilateral 05/30/2019 Exchange right tissue expert medical writer to silicone implant, exchange of left implant for matching performedby Tylor Boss MD at [facility] OR Social History Tobacco Use Smoking status: Never Smokeless tobacco: Never Substance Use Topics Alcohol use: Yes Alcohol/week: 2.0 standard drinks of alcohol Types: 2 Glasses of wine per week Family History: Family History Problem Relation Age of Onset Cancer Father bladder Stroke Mother Cancer Brother 59 esophageal Stroke Brother Liver Disease Brother Cancer Maternal Uncle bladder Breast Cancer Paternal Aunt 35 Cancer Paternal Aunt 35 breast Review of Systems as pertinent: Physical: Vital Signs: BP 138/74 (BP Cuff Location: Right arm, BP Patient Position: Semi fowlers) Temp 35.8??C (96.4 ??F) (Temporal) Resp 16 Ht 154.9 cm (61) Wt 60.3 kg (133 lb) SpO2 97% BMI 25.13 kg/m?? Heart Examination: Cardiac Regularity: Regular Respiratory Examination: Respiratory Pattern: Regular Breath Sounds Right: Clear Breath Sounds Left: Clear Additional physical exam related to the proposed procedure, patient activity, disease state and treatment as pertinent: Assessment: Previous complications with sedation or anesthesia?: No Anesthesia Classification: ASA 2 Plan: Proceed with IR CT Guided BELKIS nodule Biopsy Fasting Time: Time of last liquid intake: 644 Date of Last Liquid Intake: 06/16/23 Time of last solid intake: 1999 Date of last solid intake: 06/15/23 Patient Appropriate Candidate for Planned Sedation?: Yes TAL KAY MD 06/16/2023 11:05 documented in this encounter Procedure Notes * Mustapha Nguyen MD - 06/16/2023 0900 EST IR Procedure Note Procedure: CT guided left lung tumor biopsy Date Performed: 06/16/2023 Radiologist/Master At Arms(s): Patrick Sedation/Anesthesia: moderate sedation and local lidocaine Time Out: A time-out was completed prior to procedure verifying correct patient, procedure, site, positioning, and special equipment if applicable. Estimated Blood Loss: Unless otherwise noted, there was no blood loss, specimens removed, cultures obtained, or drains retained. Specimens: multiple 20 gauge core needle biopsies of left lung tumor Fluoroscopy Time: none Contrast Volume: none Complications: none Condition: stable Post Procedure Diagnosis: same Findings: Successful biopsy Recommendations: per clinical team Mustapha Nguyen MD 06/16/2023 12:04 documented in this encounter Plan of Treatment Upcoming Encounters Date Type Department Care Team (Late st Contact Info) Description 04/02/2024 10:30 EDT Appointment [facility] Interventional Radiology Unit [address] [place] [phone] 04/02/2024 15:15 EDT Office Visit [facility] Surgical Oncology - [address] [phone] Adolfo Carreno MD [address] [place] [phone] 04/05/2024 9:30 EDT Telemedicine [facility] - [facility] Palliative Care Services [address] [place] [address] [phone] Chichi Woods MD [address] [place] [phone] 04/11/2024 15:00 EDT Telemedicine [facility] Hematology & Oncology [address] [phone] Alisson Carreon MD [address] [place] [phone] 04/13/2024 13:30 EDT Appointment [facility] Hematology & Oncology [address] [phone] 04/13/2024 14:00 EDT Appointment [facility] Hematology & Oncology - [address] [address] 04/16/2024 10:00 EST Telemedicine [facility] - [facility] Palliative Care Services [address] [place] [address] [phone] Chichi Woods MD [address] [place] [address], [address] [phone] 04/24/2024 9:00 EST Appointment [facility] Radiology CT Outpatient - [address] [id number] 04/24/2024 11:00 EST Appointment [facility] Breast Imaging - [address] [id number] 04/27/2024 12:00 EST Appointment [facility] Hematology & Oncology - [address] [phone] 05/02/2024 15:00 EST Telemedicine [facility] Hematology & Oncology [address] [phone] Alisson Carreon MD [address] [place] [address], Level [address] [place] [phone] 05/04/2024 10:15 EST Ancillary Procedure [facility] Cardiology - [address] [place] [address] 05/04/2024 11:30 EST Appointment [facility] Hematology & Oncology [address] [id number] 05/04/2024 12:00 EST Appointment [facility] Hematology & Oncology - [address] [id number] 06/12/2024 13:00 EST [facility] Radiology CT - Main [address] [address] documented as of this encounter Procedures Procedure Name Priority Date/Time Associated Diagnosis Comments XR CHEST 1 VIEW Routine 06/16/2023 14:02 EST SURGICAL PATHOLOGY Routine 06/16/2023 12 :01 EST Primary malignant neoplasm of breast with metastasis (HCC-CMS) IR BIOPSY Routine 06/16/2023 11:54 EST Primary malignant neoplasm of breast with metastasis (HCC-CMS) documented in this encounter Results * XR CHEST 1 VIEW (06/16/2023 14:02 EST) Anatomical Region Laterality Modality Computed Radiogr aphy 06/16/2023 14:0 9 EST Impressions 06/16/2023 14:09 EST No acute abnormality. [id number] Narrative 06/16/2023 14:09 EST XR CHEST 1 [...] old rib fractures. IMPRESSION No acute abnormality. [id number] Mustapha Nguyen MD IM DIAGNOST IC IMAGING ORDERABLES * SURGICAL PATHOLOGY (06/16/2023 12:01 EST) Ancillary Studies Addendum Due to the equivocal Her2 IHC result, and difficulty with in-house ANNE MARIE, this case was sent to [facility] for FISH testing. Results from [facility] indicate a negative result with reflex testing (FISH negative, group 4). Please see scanned results in [facility] for HER2 FISH results and interpretation. 07/28/2023 14:08 EST [facility] Addendum electronically signed by Kari Chacon MD on 07/28/2023 at 1408 Ancillary Studies Addendum HER2/MACK RESULTS: Tissue submitted: Paraffin embedded tissue block labelled [id number] A2 From [facility] Fixative: Formalin This immunohistochemical assay is intended to paraffin-embedded tissue fixed in 10% neutral buffered formalin for 6-72 hours; 18-24 hour fixation with maximum tissue thickness of 3-4 millimeters is recommended for best assay performance. Time from biopsy to placement in formalin (cold ischemic time) should be minimized to less than one hour. Her2 should not be performed on alcohol fixed tissues. The assay was performed under appropriate conditions according to the toe laster's instructions with appropriate assay and tissue controls using an Anti-Her2 (4B5) Rabbit Monoclonal Antibody (Valera). Her2 Scoring Guidelines (invasive tumor component only) 0 negative No staining or membrane staining in less than 10% of cells 1+ negative Faint partial membrane staining in more than 10% of cells 2+ weakly positive Moderate complete membrane staining in more than 10% of cells 3+ positive Strong complete membrane staining in more than 10% of cells Reference: ASCO-CAP Recommendations for Her2 Testing. 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 See comment. Comment: Due to the equivocal (borderline positive) 2+ IHC result, an alternative test for Her2/mack gene amplification by in situ hybridization (ANNE MARIE) was attempted at [facility]. Due to the difficulty in counting Her2 and Chromosome 17 signals in this sample, the tissue has been sent out to [facility] for Fluorescent in situ hybridization testing (FISH). The Her2 IHC and ANNE MARIE slides from this case were reviewed at breast intradepartmental consultation conference. 07/28/2023 14:08 [facility] Addendum electronically signed by Kair Chacon MD on 07/11/2023 at 1513 Note to Patient The following pathology results have been interpreted by your pathologist and may be available to you before your health provider has had the opportunity to review them. Please allow time for your provider to receive these results and explore management options, if applicable. 07/28/2023 14:08 [facility] Final Diagnosis A. LUNG, LEFT, TRANSTHORACIC CT-GUIDED NEEDLE CORE BIOPSY: - Adenocarcinoma consistent with metastasis of breast origin. See comment. 07/28/2023 14:08 [facility] Diagnosis Comment The immunoprofile is supportive of the diagnosis. Oil Deliverer sections of the prior liver biopsy ([id number]) and right breast excision ([id number]) have been reviewed and show morphologic overlap with the current case. ANTIBODY(CLONE)(BLOCK ):RESULT TTF-1 (8G7G3/1, Valera) (A2): Negative p40 (BC28, [employer]oc[employer]) (A2): Negative GATA3 (L50-823, Valera) (A2): Positive Estrogen receptor (SP1, Thermo Scientific) (A2): Positive (greater than 90%) Progesterone receptor (16, Leica) (A2): Rare positive cells (less than 5%) NOTE: One or more of the reagents [...] performance characteristics have been determined by [facility] and/or by the referring laboratory. The [...] to perform high complexity clinical laboratory testing. 07/28/2023 14:08 [facility] Attestation By the signature below, the attending physician certifies that they have 1) personally conducted a gross and/or microscopic examination of the described specimen(s), and/or personally interpreted the results of laboratory testing of the described specimen(s), and 2) personally rendered or confirmed the above diagnosis. 07/28/2023 14:08 [facility] at [facility] Clinical History Breast Ca; clinical diagnosis code: C50.919 07/28/2023 14:08 [facility] Gross Description A. Received in formalin labelled with proper patient identification (initials O, K) and lung, left are three moura cylindrical tissue fragments ranging from 1.0 by less than 0.1 cm to 1.6 by less than 0.1 cm. Entirely submitted in A1-A2. TANK JARA(ASCP) 06/16/2023 15:02 07/28/2023 14:08 [facility] Performing Lab [facility] 07/28/2023 14:08 [facility] Scanned Images 07/28/2023 14:08 [facility] Tissue STRUCTURE OF UPPER LOBE OF LEFT LUNG / Unknown Collection, Other / Unknown 06/16/2023 12:01 EST 06/16/2023 13:58 EST Mustapha Nguyen MD PATHOLOGY OR DERABLES [facility] [address] [place] [address] * IR BIOPSY (06/16/2023 11:54 EST) Anatomical Region Laterality Modality Computed Tomogra phy 06/16/2023 14:5 8 EST Impressions 06/16/2023 14:[address]-guided 20-gauge core needle biopsy of a 6 mm nodule within the upper lobe of the left lung. [id number] Narrative 06/16/2023 14:[address]-guided left upper [...] lung tumor 20-gauge core needle biopsy 06/16/2023 [id number] hours HISTORY: 6 mm nodule within the [...] withinthe upper lobe of the left lung. [id number] Augustina Colin MD PhD IMG IR ORDERABLES documented in this encounter Visit Diagnoses Diagnosis Solitary lung nodule [R91.1]- Primary Solitary pulmonary nodule Primary malignant neoplasm of breast with metastasis (HCC-CMS) documented in this encounter Administered Medications Inactive Administered Medications - up to 3 most recent administrations Medication Order MAR Action Action Date Dose Rate Site fentaNYL citrate (PF) injection 25-250 mcg 25-250 mcg, intravenous, ONCE PRN, 1 dose, Starting on Michelle 06/16/23 at 1116, Until Michelle 06/16/23 at 1157, Other, Per Admin Instructions ONLY, Routine, Intraprocedure Given 06/16/2023 11:57 EST 75 mcg midazolam (VERSED) injection 0.5-10 mg 0.5-10 mg, intravenous, ONCE PRN, 1 dose, Starting on Michelle 06/16/23 at 1116, Until Michelle 06/16/23 at 1157, Other, Per Admin Instructions ONLY, Routine, Intraprocedure Given 06/16/2023 11:57 EST 1.5 mg sodium chloride 0.9 % (NS) infusion 50 mL/hr, intravenous, CONTINUOUS, Starting on Michelle 06/16/23 at 0930, Until 06/18/23 at 0208, Routine, Preprocedure Rate Documented 06/16/2023 12:06 EST 50 mL/hr 50 mL/hr New Bag 06/16/2023 9:30 EST 50 mL/hr 50 mL/hr documented in this encounter Historical Medications * This list may reflect changes made after this encounter. Medication Sig Dispensed Refills Start Date End Date gabapentin (NEURONTIN) 600 mg tablet Take 1 Tablet by mouth every evening. 12/14/2023 added in this encounter Orders Medications Ordered That Vj ht Not Have Been Administered Count Last Ordered Date First Ordered Date flumazenil (ROMAZICON) injection 0.2 mg 1 0 06/16/2023 lidocaine (PF) 10 mg/mL (1 % ) injection 2 mg 1 06/16/2023 naloxone (NARCAN) injection 0.4 mg 1 2023 documented in this encounter Care Teams [employer] Assistant Relationship Specialty Start Date End Date Linda Blancas MD [facility] [address] [place] [address] PCP - General 01/06/11 Adolfo Carreno MD [address] [facility] [address] [place] [phone] General Surgery 04/26/19 Augustina Colin MD PhD [address] [facility] [address] [place] [phone] Medical Oncology 04/26/19 documented as of this encounter
--- OUTSIDE RECORDS SUMMARY | 2024-03-20 14:44 | XMS_ITS | Encounter Summary ---
Author Organization [place] [facility] Address [address] [place] [address] Care Team Providers Care Rotor Pilot Name Role Phone Linda Blancas MD Primary Care Provider [phone] Adolfo Carreno MD Unavailable [phone] Augustina Colin MD PhD Unavailable Unavailable Encounter Details Date Type Department Care Team (Late st Contact Info) Description 05/02/2023 Specialty Pharmacy [facility] [address] [place], [place] 0[address] Allen Day [address] [place] [address] Refill Coordination Outreach (1 time occurrence) for Oncology Social History Tobacco Use Types Packs/Day Years [...] Appointment [facility] Interventional Radiology Unit [address] [place] [address] [phone] 04/02/2024 15:15 EDT Office Visit [facility] Surgical Oncology - [address] 688121 Adolfo Carreno MD [address] [place] [address] [phone] 04/05/2024 9:30 EDT Telemedicine [facility] Palliative Care Services [address] [place] [address] [id number] Chichi Woods MD [address] [place] [address] [phone] 04/11/2024 15:00 EDT Telemedicine [facility] Hematology & Oncology [address] [phone] Alisson Carreon MD [address] [place] [address] [phone] 04/13/2024 13:30 EDT Appointment [facility] Hematology & Oncology [address] [phone] 04/13/2024 14:00 EDT Appointment [facility] Hematology & Oncology [address] [phone] 04/16/2024 10:00 EST Telemedicine [facility] - [facility] Palliative Care Services [address] [place] [address] [phone] Chichi Woods MD [address] [place] [address], [address] [phone] 04/24/2024 9:00 EST Appointment [facility] Radiology CT Outpatient - [address] [id number] 04/24/2024 11:00 EST Appointment [facility] Breast Imaging - [facility] S [address] 812951 04/27/2024 12:00 EST Appointment [facility] Hematology & Oncology - [address] [phone] 05/02/2024 15:00 EST Telemedicine [facility] Hematology & Oncology - [address] 196341 Alisson Carreon MD [address] [place] [address], Level 2 [place] [phone] 05/04/2024 10:15 EST Ancillary Procedure [facility] Cardiology [place] [address] [place] [address] 05/04/2024 11:30 EST Appointment [facility] Hematology & Oncology - [address] [id number] 05/04/2024 12:00 EST Appointment [facility] Hematology & Oncology [address] [phone] 06/12/2024 13:00 EST Appointment [facility] Radiology CT - [address] [phone] documented as of this encounter Visit Diagnoses Not on filedocumented in this encounter Care Teams Rotor Pilot Relationship Specialty Start Date End Date Linda Blancas MD [facility] [address] [place] [address] PCP - General 01/06/11 Adolfo Carreno MD [address] [place] [address] 2 [place] [phone] General Surgery 04/26/19 Augustina Colin MD PhD [address] [place] [address] 2 [place] [phone] Medical Oncology 04/26/19 documented as of this encounter
--- OUTSIDE RECORDS SUMMARY | 2024-03-20 14:44 | XMS_ITS | Encounter Summary ---
Author Organization [facility] Address [address] [place] [address] Care Team Providers Care Body Stylist Name Role Phone Linda Blancas MD Primary Care Provider [phone] Adolfo Carreno MD Unavailable [phone] Augustina Colin MD PhD Unavailable Unavailable Encounter Details Date Type Department Care Team (Latest Contact Info) Description 05/25/2023 Specialty Pharmacy [facility] Specialty [facility] 1 [place] [address] Allen Day Rita Refill Coordination Outreach for Oncology Social History Tobacco Use Types [...] [facility] Interventional Radiology Unit [address] [place] [address] [phone] 04/02/2024 15:15 EDT Office Visit [facility] Surgical Oncology - [address] [phone] Adolfo Carreno MD [address] [place] [address] [phone] 04/05/2024 9:30 EDT Telemedicine [facility] - [facility] Palliative Care Services [address] [place] [address] [phone] Chichi Woods MD [address] [place] [address] [phone] 04/11/2024 15:00 EDT Telemedicine [facility] Hematology & Oncology [address] 557331 Alisson Carreon MD [address] [place] [address] [phone] 04/13/2024 13:30 EDT Appointment [facility] Hematology & Oncology [address] 160601 04/13/2024 14:00 EDT Appointment [facility] Hematology & Oncology [address] 655301 04/16/2024 10:00 EST Telemedicine [facility] - [facility] Palliative Care Services [address] [place], [place] 022[address] Chichi Woods MD [address] [place] [address], [address] [place] [phone] 04/24/2024 9:00 EST Appointment [facility] Radiology CT Outpatient - [address] [phone] 04/24/2024 11:00 EST Appointment [facility] Breast Imaging - [facility] [place] [address] [place], [place] 708011 04/27/2024 12:00 EST Appointment [facility] Hematology & Oncology - [address] [phone] 05/02/2024 15:00 EST Telemedicine [facility] Hematology & Oncology - [address] 910831 Alisson Carreon MD [address] [place] [address], Level [address] [place] [phone] 05/04/2024 10:15 EST Ancillary Procedure [facility] Cardiology - [address] [place], [place] [phone] 05/04/2024 11:30 EST Appointment [facility] Hematology & Oncology - [address] [phone] 05/04/2024 12:00 EST Appointment [facility] Hematology & Oncology - [address] [phone] 06/12/2024 13:00 EST Appointment [facility] Radiology CT - [address] [phone] documented as of this encounter Visit Diagnoses Not on filedocumented in this encounter Care Teams Body Stylist Relationship Specialty Start Date End Date Lnida Blancas MD [facility] [address] [place] [address] PCP - General 01/06/11 Adolfo Carreno MD [address] [place] [address], [facility] 2 [place] [phone] General Surgery 04/26/19 Augustina Colin MD PhD [address] [place] [address], [address] [phone] Medical Oncology 04/26/19 documented as of this encounter
--- OUTSIDE RECORDS SUMMARY | 2024-03-20 14:44 | XMS_ITS | Encounter Summary ---
Author Organization [facility] Address [address] [place] [address] Care Team Providers Care Spanish Interpreter/Translator Name Role Phone Linda Blancas MD Primary Care Provider [phone] Adolfo Carreno MD Unavailable [phone] Augustina Colin MD PhD Unavailable Unavailable Reason for Visit * Reason Onset Date Comments Eye Problem 05/11/2023 Encounter Details Date Type Department Care Team (Late st Contact Info) Description 05/11/2023 Telephone [facility] Ophthalmology - [facility] [address] [place], [place] [phone] Tylor Bonilla MD [address] [facility], Level [address] [place] [address] Eye Problem Social History Tobacco Use Types Packs/Day Years [...] encounter Miscellaneous Notes * Telephone Encounter - Lorin Xie - 05/12/2023 1149 EST Pt scheduled 05/20 with RR * Telephone Encounter - Ab Joyce RN - 05/12/2023 1051 EST Per RR. Pt should see [facility] or RR within 1-2 weeks. Please schedule patient. Cass Joyce RN 05/12/2023 10:52 * Telephone Encounter - Ab Joyce RN - 05/11/2023 1440 EST Per [facility]HM, have RR review. Placed on RR desk. Cass Joyce RN 05/11/2023 14:40 * Telephone Encounter - Helen Griffin - 05/11/2023 1402 EST 62 y.o. As of 05/11/2023 14:02: Nature of problem? Left eye vision change. Difficulty reading after 15 mins or so. Vision goes out of focus. Has to squint and get really close. Pt is very anxious about this. It started 2-3 weeks ago. She thought she needed new glasses, but now she's worried it's more than that. Once the blurriness starts, it won't go away until she rests. It will pretty much last the rest of the day. She's worried this is related to her retinal tear Do you have establish eye care? yes With who? [facility] Did you call them? (If not, please call them first.) just called us If yes, do you have appointment with them? When? Due next October Are the notes being faxed over? n/a Onset and Duration of problem? 2-3 weeks Is this an injury or trauma? no Pain? Describe the type of pain you are having (sharp, dull, etc) none Have you recently had eye surgery? no Are you having new or changed flashes/and or floaters? no Any increased sensitivity to light? no Any loss of vision/curtain/darkness/veil? no Any change in vision/double vision/blurred? blurry Any redness and/or drainage (color)? no Please list any over the counter or prescription eye drops that patient is using? no If yes, how often? n/a Are you Diabetic? no If yes, how have blood sugars been? n/a Last known A1C? n/a Do you wear contact lenses? No Any other pertinent information? no Would you be able to come in today if the provider needed to see you? Not today but would like to be seen before the end of the year for insurance reasons How long would it take you to get to our office? A few hours What is the best phone number for us to speak to you? [phone] (VERIFY THE PHONE NUMBERS REGARDLESS OF WHAT IS IN THE SYSTEM.) Please list the next appointment or due date. Due in October documented in this encounter Plan of Treatment Upcoming Encounters Date Type Department Care Team (Late st Contact Info) Description 04/02/2024 10:30 EDT Appointment [facility] Interventional Radiology Unit [address] [place] [address] 10797 04/02/2024 15:15 EDT Office Visit [facility] [place] [address] Adolfo Carreno MD 111 [facility] 2 [place] [phone] 04/05/2024 9:30 EDT Telemedicine [facility] Palliative Care Services [address] [place] [address] [phone] Chichi Woods MD [address] [place] [address] [phone] 04/11/2024 15:00 EDT Telemedicine [facility] Hematology & Oncology - [address] 758381 Alisson Carreon MD [address] [place] [address] 2 [place] [phone] 04/13/2024 13:30 EDT Appointment [facility] Hematology & Oncology - [address] [phone] 04/13/2024 14:00 EDT Appointment [facility] Hematology & Oncology [address] [phone] 04/16/2024 10:00 EST Telemedicine [facility] Palliative Care Services [address] [place] [address] [phone] Chichi Woods MD [address] [place] [address] [phone] 04/24/2024 9:00 EST Appointment [facility] Radiology CT Outpatient - [address] [phone] 04/24/2024 11:00 EST Appointment [facility] Breast Imaging - [address] [phone] 04/27/2024 12:00 EST Appointment [facility] Hematology & Oncology - [address] [address] 05/02/2024 15:00 EST Telemedicine [facility] Hematology & Oncology [address] [address] Alisson Carreon MD [address] [place] [address] [phone] 05/04/2024 10:15 EST Ancillary Procedure [facility] Cardiology - [address] [place], [place] [phone] 05/04/2024 11:30 EST Appointment [facility] Hematology & Oncology [address] [address] 05/04/2024 12:00 EST Appointment [facility] Hematology & Oncology [address] [address] 06/12/2024 13:00 EST Appointment [facility] Radiology CT - [address] [phone] documented as of this encounter Visit Diagnoses Not on filedocumented in this encounter Additional Health Concerns Infection Onset Date Last Indicated Resolved Time R/O COVID-19 12/12/2023 12/12/2023 12/12/2023 15:3 5 EDT R/O COVID-19 01/08/2024 01/08/2024 01/08/2024 18:2 6 EDT R/O COVID-19 01/16/2024 01/16/2024 01/16/2024 17:5 0 EDT documented as of this encounter Care Teams Spanish Interpreter/Translator Relationship Specialty Start Date End Date Linda Blancas MD [facility] [address] [place] [address] PCP - General 01/06/11 Adolfo Carreno MD [address] [place] [address] 2 [place] [address] General Surgery 04/26/19 Augustina Colin MD PhD [address] [place] [address] 2 [place] [phone] Medical Oncology 04/26/19 documented as of this encounter
--- OUTSIDE RECORDS SUMMARY | 2024-03-20 14:45 | XMS_ITS | Encounter Summary ---
Author Organization [facility] Address [address] [place] [address] Care Team Providers Care Cloth Edge Singer Name Role Phone Linda Blancas MD Primary Care Provider [phone] Adolfo Carreno MD Unavailable [phone] Augustina Colin MD PhD Unavailable Unavailable Reason for Visit * Reason Onset Date Comments Appointment Related 12/02/2022 Encounter Details Date Type Department Care Team (Late st Contact Info) Description 12/02/2022 Telephone [facility] Hematology & Oncology - [place] [address] [place], [place] 1248[address] Augustina Colin, PhD Appointment Related Social History [...] * Telephone Encounter - Sandhya Estrada - 12/02/2022 4025 EDT Called patient to update on upcoming appts. MR location changed to [facility] so CT scan can also be done.FUR scheduled with KD on 03/01 @ 1000. E-mail sent for ZOOM visit. Patient confirmed changes and receipt of e-mail. documented in this encounter Plan of Treatment Upcoming Encounters Date Type Department Care Team (Late st Contact Info) Description 04/02/2024 10:30 EDT Appointment [facility] Interventional Radiology Unit [address] [place] [address] [phone] 04/02/2024 15:15 EDT Office Visit [facility] Surgical Oncology - [address] [phone] Adolfo Carreno MD 111 [facility], Level [address] [place] [phone] 04/05/2024 9:30 EDT Telemedicine [facility] - [facility] Palliative Care Services [address] [place], [place] 559001 Chichi Woods MD [address] [place] [address] [phone] 04/11/2024 15:00 EDT Telemedicine [facility] Hematology & Oncology - [facility] [address] [place], [place] [phone] Alisson Carreon MD [address] [place] [address], [address] [place] [phone] 04/13/2024 13:30 EDT Appointment [facility] Hematology & Oncology [address] [phone] 04/13/2024 14:00 EDT Appointment [facility] Hematology & Oncology - [address] [phone] 04/16/2024 10:00 EST Telemedicine [facility] - [facility] Palliative Care Services [address] [place] [address] [phone] Chichi Woods MD [address] [place] [address], [address] [phone] 04/24/2024 9:00 EST Appointment [facility] Radiology CT Outpatient - [address] [id number] 04/24/2024 11:00 EST Appointment [facility] Breast Imaging - [facility] S [address] [phone] 04/27/2024 12:00 EST Appointment [facility] Hematology & Oncology [address] [phone] 05/02/2024 15:00 EST Telemedicine [facility] Hematology & Oncology - [address] [phone] Alisson Carreon MD [address] [place] [address], Level [address] [place] [phone] 05/04/2024 10:15 EST Ancillary Procedure [facility] Cardiology - [address] [place], [place] [phone] 05/04/2024 11:30 EST Appointment [facility] Hematology & Oncology - [address] [address] 05/04/2024 12:00 EST Appointment [facility] Cancer Center Hematology & Oncology - [address] [address] 06/12/2024 13:00 EST [facility]ment [facility] Rad[facility] CT - [address] [address] documented as of this encounter Visit Diagnoses Not on filedocumented in this encounter Care Teams Cloth Edge Singer Relationship Specialty Start Date End Date Linda Blancas MD [facility] [address] [place] [address] PCP - General 01/06/11 Adolfo Carreno MD [address] [place] [address], [facility] [address] [place] [phone] General Surgery 04/26/19 Augustina Colin MD PhD [address] [place] [address], [facility] 2 [place] [address] Medical Oncology 04/26/19 documented as of this encounter
--- OUTSIDE RECORDS SUMMARY | 2024-03-20 14:45 | XMS_ITS | Encounter Summary ---
Author Organization [facility] Address [address] [place] [address] Care Team Providers Care Life Enrichment Director Name Role Phone Linda Blancas MD Primary Care Provider [phone] Adolfo Carreno MD Unavailable [phone] Augustina Colin MD PhD Unavailable Unavailable Reason for Referral * Radiology Services (Routine/Next Available) - Authorization Not Required Specialty Diagnoses / Procedures Referred By Contac t Referred To Contact Nuclear Medicine Diagnoses Metastatic breast cancer Metastasis to bone (HCC-CMS) Procedures NM BONE WHOLE BODY Nadeen Blood PA-C [address] [place] [phone] [facility] Referral ID Status Reason Start Date Expiration Date Visits Requested Visits Authorized [id number] Authorization Not Required 09/08/2022 1 1 Reason for Visit * Radiology Services (Routine/Next Available) - Authorization Not Required Specialty Diagnoses / Procedures Referred By Contac t Referred To Contact Nuclear Medicine Diagnoses Metastatic breast cancer Metastasis to bone (HCC-CMS) Procedures NM BONE WHOLE BODY Nadeen Blood PA-C [address] [place] [phone] [facility] Referral ID Status Reason Start Date Expiration Date Visits Requested Visits Authorized [id number] Authorization Not Required 09/08/2022 1 1 Encounter Details Date Type Department Care Team (Latest Contact Info) Description 11/25/2022 10:41 EDT - 11/25/2022 14:14 EDT Hospital Encounter [facility] Radiology Nuclear Medicine and PET - [address] [address] Primary malignant neoplasm of breast with metastasis (HCC-CMS); Metastasis to bone (HCC-CMS) Discharge Disposition: Home or Self Care [...] Tab 3 08/16/2012 capecitabine (XELODA) 500 mg tablet Take 3 Tablets by mouth every 12 hours. one week on, one week off 84 Tablet 3 11/12/2022 03/22/2023 gabapentin (NEURONTIN) 100 mg capsule Take 2 Caps by mouth 2 times daily. 360 Cap 3 08/16/2012 12/14/2023 ibuprofen (MOTRIN) 200 mg tablet Take 2 Tablets by mouth as needed. 12/07/2023 mv-mn/C/glutamin/lysin/h loi630 (AIRBORNE, ASCORBATE SODIUM, ORAL) Take by mouth as needed. 12/14/2023 omeprazole (PRILOSEC) 20 mg capsule Take 1 Capsule by mouth daily. 03/28/2023 ondansetron (ZOFRAN-ODT) 8 mg disintegrating tablet Take [...] Appointment [facility] Interventional Radiology Unit [address] [place] [address] [id number] 04/02/2024 15:15 EDT Office Visit [facility] Surgical Oncology - [address] [address] Adolfo Carreno MD 111 [facility], Level [address] [place] [phone] 04/05/2024 9:30 EDT Telemedicine [facility] Palliative Care Services [address], [place] [address] Chichi Woods MD [address] [place] [address] [address] [place] [phone] 04/11/2024 15:00 EDT Telemedicine [facility] Hematology & Oncology - [address] [phone] Alisson Carreon MD [address] [place] [address], [address] [place] [phone] 04/13/2024 13:30 EDT Appointment [facility] Hematology & Oncology [address] [id number] 04/13/2024 14:00 EDT Appointment [facility] Hematology & Oncology [address] [id number] 04/16/2024 10:00 EST Telemedicine [facility] - [facility] Palliative Care Services [address] [place] [address] 368201 Chichi Woods MD [address] [place] [phone] 04/24/2024 9:00 EST Appointment [facility] Radiology CT Outpatient - [address] [id number] 04/24/2024 11:00 EST Appointment [facility] Breast Imaging - [facility] [address] [id number] 04/27/2024 12:00 EST Appointment [facility] Hematology & Oncology [address] [id number] 05/02/2024 15:00 EST Telemedicine [facility] Hematology & Oncology - [address] [phone] Alisson Carreon MD 111 [facility], [address] [place] [phone] 05/04/2024 10:15 EST Ancillary Procedure [facility] Cardiology - [address] [place] [address] 05/04/2024 11:30 EST Appointment [facility] Hematology & Oncology - [address] [phone] 05/04/2024 12:00 EST Appointment [facility] Hematology & Oncology [address] [phone] 06/12/2024 13:00 EST Appointment [facility] Radiology CT - [address] [phone] documented as of this encounter Procedures Procedure Name Priority Date/Time Associated Diagnosis Comments DC BONE WHOLE BODY Routine 11/25/2022 14 :51 EDT Primary malignant neoplasm of breast with metastasis (HCC-CMS) Metastasis to bone (HCC-CMS) documented in this encounter Results * NM BONE WHOLE BODY (11/25/2022 14:51 EDT) Anatomical Region Laterality Modality Nuclear Medicine 11/25/2022 16:3 4 EDT Impressions 11/25/2022 16:34 EDT New focus of radiotracer uptake in the left humeral head, may represent new metastatic disease or focus related to new rotator cuff disease or trauma. No other new foci of radiotracer uptake are identified otherwise. Slight increase in size of the right iliac lesion. Otherwise stable bone scan as described. Narrative 11/25/2022 16:34 EDT NM BONE WHOLE BODY ??11/25/2022 2:15 PM Signs and Symptoms: ??metastatic breast CA, eval disease status; metastatic breast CA, eval disease status Comparison: July 20, 2022 Technique: Approximately two hours after the IV injection of 19.4 mCi Tc-99m MDP, anterior and posterior whole body bone images were obtained. Findings: Foci of increased radiotracer uptake in the mid and lower cervical spine are unchanged from prior. No comparison radiographic studies of the cervical spine are available. Increased radiotracer uptake in the left 2nd rib is unchanged from prior. Increased radiotracer uptake in the posterior right 6th rib corresponding to a pathologic fracture on comparison CT is unchanged from prior. Increased radiotracer uptake in the posterior left 9th rib and transverse process of T12 on the left corresponding to healing rib fracture and transverse process fracture are unchanged from prior. Patient is status post posterior lumbosacral fusion. There is intense radiotracer uptake on the junctional zone at the L1-L2 corresponding to severe discogenic endplate disease. Focus of increased radiotracer uptake in the right ilium is slightly larger than on prior exam. Focus of increased radiotracer uptake in the left ischium is unchanged from prior. There is a new focus of radiotracer uptake in the left humeral head. Periarticular uptake in both feet most pronounced in the 1st MTP on the right, both knees most pronounced in the patellofemoral joints, both hands, both elbows, and acromioclavicular joints related to arthrosis are unchanged from the comparison. Procedure Note Sonny Georges MD - 11/25/2022 NM BONE WHOLE BODY 11/25/2022 2:15 PM Signs and Symptoms: metastatic breast CA, eval disease status; metastaticbreast CA, eval disease status Comparison: July 20, 2022 Technique: Approximately two hours after the IV injection of 19.4 mCi Tc-99m MDP,anterior and posterior whole body bone images were obtained. Findings: Foci of increased radiotracer uptake in the mid and lower cervical spineare unchanged from prior. No comparison radiographic studies of thecervical spine are available. Increased radiotracer uptake in the left 2nd rib is unchanged fromprior. Increased radiotracer uptake in the posterior right 6th rib correspondingto a pathologic fracture on comparison CT is unchanged from prior. Increased radiotracer uptake in the posterior left 9th rib and transverseprocess of T12 on the left corresponding to healing rib fracture andtransverse process fracture are unchanged from prior. Patient is statuspost posterior lumbosacral fusion. There is intense radiotracer uptake onthe junctional zone at the L1-L2 corresponding to severe discogenicendplate disease. Focus of increased radiotracer uptake in the right ilium is slightlylarger than on prior exam. Focus of increased radiotracer uptake in theleft ischium is unchanged from prior. There is a new focus of radiotracer uptake in the left humeral head. Periarticular uptake in both feet most pronounced in the 1st MTP on theright, both knees most pronounced in the patellofemoral joints, bothhands, both elbows, and acromioclavicular joints related to arthrosis areunchanged from the comparison. IMPRESSION New focus of radiotracer uptake in the left humeral head, may representnew metastatic disease or focus related to new rotator cuff disease ortrauma. No other new foci of radiotracer uptake are identified otherwise. Slight increase in size of the right iliac lesion. Otherwise stable bone scan as described. Nadeen Blood PA-C IMG NM ORDERABLES documented in this encounter Visit Diagnoses Diagnosis Primary malignant neoplasm of breast with metastasis (HCC-CMS) Metastasis to bone (HCC-CMS) Secondary malignant neoplasm of bone and bone marrow documented in this encounter Administered Medications Inactive Administered Medications - up to 3 most recent administrations Medication Order MAR Action Action Date Dose Rate Site technetium (Tc-99m) methylene diphosphonate (MDP) injection 18 millicurie 18 millicurie, radiopharm IV, NOW X1, 1 dose, On Michelle 11/25/22 at 1130, Routine, Imaging Protocol Orders Given 11/25/2022 11:10 EDT 19.4 millicuries documented in this encounter Orders Medications Ordered That Vj ht Not Have Been Administered Count Last Ordered Date First Ordered Date technetium (Tc-99m) methylen e diphosphonate (MDP) injection 18 millicurie 1 11/25/2022 documented in this encounter Care Teams Life Enrichment Director Relationship Specialty Start Date End Date Linda Blancas MD [facility] [address] [place] [address] PCP - General 01/06/11 Adolfo Carreno MD [address] [place] [address], [address] [place] [phone] General Surgery 04/26/19 Augustina Colin MD PhD [address] [place] [address], [address] [place] [address] Medical Oncology 04/26/19 documented as of this encounter
--- OUTSIDE RECORDS SUMMARY | 2024-03-20 14:45 | XMS_ITS | Encounter Summary ---
Author Organization [facility] Address [address] [place] [address] Care Team Providers Care Administrative Assistant Office Manager Name Role Phone Linda Blancas MD Primary Care Provider [phone] Adolfo Carreno MD Unavailable [phone] Augustina Colin MD PhD Unavailable Unavailable Reason for Visit * Reason Onset Date Comments Appointment Related 12/10/2022 Encounter Details Date Type Department Care Team (Late st Contact Info) Description 12/10/2022 Telephone [facility] Hematology & Oncology - [address] [place] [address] [place], [place] 20216[address] uAgustina Colin, PhD Appointment Related Social History Tobacco [...] * Telephone Encounter - Sandhya Estrada - 12/10/[address] scan rescheduled from 3 mo to 6 mo per KD. Patient notified and confirmed. documented in this encounter Plan of Treatment Upcoming Encounters Date Type Department Care Team (Late st Contact Info) Description 04/02/2024 10:30 EDT Appointment [facility] Interventional Radiology Unit [address] [place], [place] [phone] 04/02/2024 15:15 EDT Office Visit [facility] Surgical Oncology - [address] [phone] Adolfo Carreno MD [address] [place] [address] 2 [place] [phone] 04/05/2024 9:30 EDT Telemedicine [facility] Palliative Care Services [address] [place], [place] 483851 Chichi Woods MD [address] [place] [address], [address] [phone] 04/11/2024 15:00 EDT Telemedicine [facility] Hematology & Oncology - [address] 396001 Alisson Carreon MD [address] [place] [address] 2 [place] [phone] 04/13/2024 13:30 EDT Appointment [facility] Hematology & Oncology - [address] [id number] 04/13/2024 14:00 EDT Appointment [facility] Hematology & Oncology - [address] [address] 04/16/2024 10:00 EST Telemedicine [facility] - [facility] [address] [place] [address] [phone] Chichi Woods MD [address] [place] [phone] 04/24/2024 9:00 EST Appointment [facility] Radiology CT Outpatient - [address] [address] 04/24/2024 11:00 EST Appointment [facility] Breast Imaging - [facility] [address] 333151 04/27/2024 12:00 EST Appointment [facility] Hematology & Oncology - [address] [phone] 05/02/2024 15:00 EST Telemedicine [facility] Hematology & Oncology - [address] 283111 Alisson Carreon MD [address] [place] [address], [facility], Level [address] [place] [phone] 05/04/2024 10:15 EST Ancillary Procedure [facility] Cardiology [place] [address] [place] [address] 05/04/2024 11:30 EST Appointment [facility] Hematology & Oncology - [address] [phone] 05/04/2024 12:00 EST Appointment [facility] Hematology & Oncology - [address] [phone] 06/12/2024 13:[address] [facility] Radiology CT - [address] [phone] documented as of this encounter Visit Diagnoses Not on filedocumented in this encounter Care Teams Administrative Assistant Office Manager Relationship Specialty Start Date End Date Linda Blancas MD [facility] [address] [place] [address] PCP - General 01/06/11 Adolfo Carreno MD [address] [place] [phone] General Surgery 04/26/19 Augustina Colin MD PhD [address] [place] [address] 2 [place] [phone] Medical Oncology 04/26/19 documented as of this encounter
--- OUTSIDE RECORDS SUMMARY | 2024-03-20 14:45 | XMS_ITS | Encounter Summary ---
Author Organization [facility] Address [address] [place] [address] Care Team Providers Care Forest Nursery Worker Name Role Phone Linda Blancas MD Primary Care Provider [phone] Adolfo Carreno MD Unavailable [phone] Augustina Colin MD PhD Unavailable Unavailable Reason for Visit * Reason Onset Date Comments Results 03/10/2023 Encounter Details Date Type Department Care Team (Late st Contact Info) Description 03/10/2023 Telephone [facility] Cancer [facility] Hematology & Oncology - Main [place] [address] [place], [place] [phone] Augustina Colin, MD PhD Results Social History [...] * Telephone Encounter - Nilson Arciniega - 03/10/2023 1114 EDT Lab results entered by [facility] documented in this encounter Plan of Treatment Upcoming Encounters Date Type Department Care Team (Late st Contact Info) Description 04/02/2024 10:30 EDT Appointment [facility] Interventional Radiology Unit [address] [place] [address] [phone] 04/02/2024 15:15 EDT Office Visit [facility] Surgical Oncology - [address] [phone] Adolfo Carreno MD [address] [place] [phone] 04/05/2024 9:30 EDT Telemedicine [facility] - [facility] Palliative Care Services [address] [place], [place] [phone] Chichi Woods MD [address] [place] [phone] 04/11/2024 15:00 EDT Telemedicine [facility] Hematology & Oncology - [address] [phone] Alisson Carreon MD [address] [place] [address] 2 [place] [phone] 04/13/2024 13:30 EDT Appointment [facility] Hematology & Oncology - [address] [phone] 04/13/2024 14:00 EDT Appointment [facility] Hematology & Oncology [address] 584131 04/16/2024 10:00 EST Telemedicine [facility] - [facility] Palliative Care Services [address] [place] [address]241 Chichi Woods MD [address] [place] [phone] 04/24/2024 9:00 EST Appointment [facility] Radiology CT Outpatient - [address] [phone] 04/24/2024 11:00 EST Appointment [facility] Breast Imaging - [facility] S [address] [phone] 04/27/2024 12:00 EST Appointment [facility] Hematology & Oncology [address] [phone] 05/02/2024 15:00 EST Telemedicine [facility] Hematology & Oncology [address] [phone] Alisson Carreon MD [address] [place] [address], [address] [place] [phone] 05/04/2024 10:15 EST Ancillary Procedure [facility] Cardiology [place] [place] [address] 05/04/2024 11:30 EST Appointment [facility] Hematology & Oncology - [address] [phone] 05/04/2024 12:00 EST Appointment [facility] Hematology & Oncology - [address] [address] 06/12/2024 13:00 [facility] Radiology CT - [facility] [address] [place] [address] documented as of this encounter Procedures Procedure Name Priority Date/Time Associated Diagnosis Comments COMPLETE BLOOD COUNT AND DIFFERENTIAL Routine 02/24/2023 COMPREHENSIVE METABOLIC PANEL (CMP) Routine 02/24/2023 documented in this encounter Results * (ABNORMAL) COMPREHENSIVE METABOLIC PANEL (CMP) (02/24/2023) GFR, Calculated, External 60 [facility] Glucose, Serum, External 91 mg/dL [facility] Albumin, External 3.2(A) 3.4 - 5.0 g/dL [facility] Total Alkaline Phosphatase, External 158(A) 48 - 129 [facility] ALT, External 32 [facility] AST, External 42(A) 15 - 37 U/L [facility] BUN, External 20(A) 7 - 18 mg/dL [facility] Calculated Calcium, External [facility] Calcium, External 8.9 mg/dL [facility] Chloride, External 114(A) 98 - 107 mmol/L [facility] CO2, External 28 mmol/L [facility] Creatinine, External 0.7 mg/dL [facility] Fasting?, External [facility] Potassium, External 4.0 mmol/L [facility] Sodium, External 145 mmol/L [facility] Total Protein, External 6.6 [facility] Bilirubin, Total, External 0.96 [facility] Blood VENOUS BLOOD / Unknown 02/24/2023 Historical Provider CHEMISTRY & BLOOD GAS ORDERABLES [facility] * (ABNORMAL) COMPLETE BLOOD COUNT AND DIFFERENTIAL (02/24/2023) WBC, External 4.6 [facility] RBC, External 3.31(A) 4.00 - 5.20 [facility] Hemoglobin, External 12.9 % [facility] HCT, External 37.5 [facility] MCV, External 113(A) 80 - 100 [facility] MCH, External 39.0(A) 26.0 - 34.0 g/dL [facility] MCHC, External 34.4 g/dL [facility] PLT, External 134(A) 150 - 350 [facility] RDW-CV, External 17.2(A) 11.5 - 14.5 [facility] Neutrophils, External 49 [facility] Lymphocytes, External 30 [facility] Monocytes, External 11 [facility] Eosinophils, External 6(A) 1 - 4 [facility] Basophils, External 0 [facility] ABS Neutrophils, External [facility] ABS Lymphs, External 1.6 [facility] ABS Monocytes, External 0.5 [facility] ABS Eosinophils, External 0.3 [facility] ABS Basophils, External 0.0 [facility] Blood VENOUS BLOOD / Unknown 02/24/2023 Historical Provider PACKAGES & DNA IL OBE ORDERABLES [facility] documented in this encounter Visit Diagnoses Not on filedocumented in this encounter Care Teams Forest Nursery Worker Relationship Specialty Start Date End Date Linda Blancas MD [address] [place] [address] 30 [place] [address] PCP - General 01/06/11 Adolfo Carreno MD [address] [place] [phone] General Surgery 04/26/19 Augustina Colin MD PhD [address] [place] [phone] Medical Oncology 04/26/19 documented as of this encounter
--- OUTSIDE RECORDS SUMMARY | 2024-03-20 14:45 | XMS_ITS | Encounter Summary ---
Author Organization [facility] Address [address] [place] [address] Care Team Providers Care Portable Machine Sander Name Role Phone Linda Blancas MD Primary Care Provider [phone] Adolfo Carreno MD Unavailable [phone] Augustina Colin MD PhD Unavailable Unavailable Reason for Visit * Reason Onset Date Comments Results 03/10/2023 Encounter Details Date Type Department Care Team (Late st Contact Info) Description 03/10/2023 Telephone [facility] Hematology & Oncology - Main [place] [address], [place] [phone] Augustina Colin, MD PhD Results Social History [...] Telephone Encounter - Nilson Arciniega - 03/10/2023 1358 EDT Lab Results [facility] documented in this encounter Plan of Treatment Upcoming Encounters Date Type Department Care Team (Late st Contact Info) Description 04/02/2024 10:30 EDT Appointment [facility] Interventional Radiology Unit [address] [place] [address] [phone] 04/02/2024 15:15 EDT Office Visit [facility] Surgical Oncology - [address] [phone] Adolfo Carreno MD 111 [facility] 2 [place] [phone] 04/05/2024 9:[address] [facility] - [facility] Palliative Care Services [address], [place] [phone] Chichi Woods MD [address] [place] [address] [phone] 04/11/2024 15:00 EDT Telemedicine [facility] Hematology & Oncology - [address] [phone] Alisson Carreon MD [address] [place] [address], [facility] 2 [place] [phone] 04/13/2024 13:30 EDT Appointment [facility] Hematology & Oncology - [address] 127841 04/13/2024 14:00 EDT Appointment [facility] Hematology & Oncology [address] [phone] 04/16/2024 10:[address] [facility] - [facility] Palliative Care Services [address] [place] [address] [phone] Chichi Woods MD [address] [place] [address], [address] [phone] 04/24/2024 9:00 EST Appointment [facility] Radiology CT Outpatient - [address] 304991 04/24/2024 11:00 EST Appointment [facility] Breast Imaging - [facility] S [address] [phone] 04/27/2024 12:00 EST Appointment [facility] Hematology & Oncology [address] 070571 05/02/2024 15:00 EST Telemedicine [facility] Hematology & Oncology [address] 754451 Alisson Carreon MD [address] [place] [address], Level 2 [place] [phone] 05/04/2024 10:15 EST Ancillary Procedure [facility] Cardiology [place] [address] [place] [address] 05/04/2024 11:30 EST Appointment [facility] Hematology & Oncology [address] [phone] 05/04/2024 12:00 EST Appointment [facility] Hematology & Oncology - [address] [address] 06/12/2024 13:00 [facility] Radiology CT - Main [place] [address] [place] [address] documented as of this encounter Procedures Procedure Name Priority Date/Time Associated Diagnosis Comments COMPLETE BLOOD COUNT AND DIFFERENTIAL Routine 02/24/2023 COMPREHENSIVE METABOLIC PANEL (CMP) Routine 02/24/2023 documented in this encounter Results * (ABNORMAL) COMPLETE BLOOD COUNT AND DIFFERENTIAL (02/24/2023) [facility] WBC, External 4.6 [facility] RBC, External 3.31(A) 4.00 - 5.20 [facility] Hemoglobin, External 12.9 % [facility] HCT, External 37.5 [facility] MCV, External 113(A) 80 - 100 [facility] MCH, External 39.0(A) 26.0 - 34.0 g/dL [facility] MCHC, External 34.4 g/dL [facility] PLT, External 134(A) 150 - 350 [facility] RDW-CV, External 17.2(A) 11.5 - 14.5 [facility] Neutrophils, External 49 [facility] Lymphocytes, External 30 [facility] Monocytes, External 11 [facility] Eosinophils, External 6(A) 1 - 4 [facility] Basophils, External 0 [facility] ABS Neutrophils, External [facility] ABS Lymphs, External 1.6 [facility] ABS Monocytes, External 0.5 [facility] ABS Eosinophils, External 0.3 [facility] ABS Basophils, External 0.0 [facility] Blood VENOUS BLOOD / Unknown 02/24/2023 Historical Provider PACKAGES & DNA IN OBE ORDERABLES [facility] * (ABNORMAL) COMPREHENSIVE METABOLIC PANEL (CMP) (02/24/2023) Pathologist [facility] GFR, Calculated, External [facility] Glucose, Serum, External 91 mg/dL [facility] Albumin, External 3.2(A) 3.4 - 5.0 g/dL [facility] Total Alkaline Phosphatase, External 158(A) 48 - 129 [facility] ALT, External 32 [facility] AST, External 42(A) 15 - 37 U/L [facility] BUN, External 20(A) 7 - 18 mg/dL [facility] Calculated Calcium, External [facility] Calcium, External 8.9 mg/dL [facility] Chloride, External 114(A) 98 - 107 mmol/L [facility] CO2, External 28 mmol/L [facility] Creatinine, External 0.7 mg/dL [facility] Fasting?, External [facility] Potassium, External 4.0 mmol/L [facility] Sodium, External 145 mmol/L [facility] Total Protein, External 6.6 [facility] Bilirubin, Total, External 0.96 [facility] Blood VENOUS BLOOD / Unknown 02/24/2023 Historical Provider CHEMISTRY & BLOOD GAS ORDERABLES [facility] documented in this encounter Visit Diagnoses Not on filedocumented in this encounter Care Teams Portable Machine Sander Relationship Specialty Start Date End Date Linda Blancas MD [facility] [address] [place] [address] PCP - General 01/06/11 Adolfo Carreno MD [address] [place] [phone] General Surgery 04/26/19 Augustina Colin MD PhD [address] [place] [phone] Medical Oncology 04/26/19 documented as of this encounter
--- OUTSIDE RECORDS SUMMARY | 2024-03-20 14:45 | XMS_ITS | Encounter Summary ---
Author Organization [facility] Address [address] [place] [address] Care Team Providers Care Coordinator Of Rehabilitation Services Name Role Phone Linda Blancas MD Primary Care Provider [phone] Adolfo Carreno MD Unavailable [phone] Augustina Colin MD PhD Unavailable Unavailable Reason for Visit * Reason Onset Date Comments Appointment Related 03/03/2023 Encounter Details Date Type Department Care Team (Late st Contact Info) Description 03/03/2023 Telephone [facility] Hematology & Oncology - Main [place] [address] [place], [place] [address] Augustina Colin, PhD Appointment Related Social History [...] * Telephone Encounter - Sandhya Estrada - 03/03/2023 1606 EDT Called patient regarding upcoming appts. Per KD, Zometa infusion moved to 05/27. Also requested bone scan for same day as CT chest scan. Notified patient the radiology will call to schedule bone scan and the Zometa infusion has been rescheduled. Patient confirmed information. She also asked about her labs that were drawn on Shep 4 on 02/28. No results are in. Sent message to primary RN and Shep 4 Charge regarding situation. documented in this encounter Plan of Treatment Upcoming Encounters Date Type Department Care Team (Late st Contact Info) Description 04/02/2024 10:30 EDT Appointment [facility] Interventional Radiology Unit [address] [place] [address] 04/02/2024 15:15 EDT Office Visit [facility] Surgical Oncology - [address] [phone] Adolfo Carreno MD 111 [facility], Level 2 [place] [phone] 04/05/2024 9:30 EDT Telemedicine [facility] - [facility] Palliative Care Services [address] [place], [place] [phone] Chichi Woods MD 111 [facility], [address] [phone] 04/11/2024 15:00 EDT Telemedicine [facility] Hematology & Oncology - [address] [phone] Alisson Carreon MD [address] [place] [address], [facility] 2 [place] [phone] 04/13/2024 13:30 EDT Appointment [facility] Hematology & Oncology - [address] 116271 04/13/2024 14:00 EDT Appointment [facility] Hematology & Oncology [address] [phone] 04/16/2024 10:00 EST Telemedicine [facility] - [facility] Palliative Care Services [address] [place] [address] Chichi Woods MD [address] [place] [phone] 04/24/2024 9:00 EST Appointment [facility] Radiology CT Outpatient - [address] 919491 04/24/2024 11:00 EST Appointment [facility] Breast Imaging - [address] 749281 04/27/2024 12:00 EST Appointment [facility] Hematology & Oncology - [address] 261021 05/02/2024 15:00 EST Telemedicine [facility] Hematology & Oncology - [address] 028001 Alisson Carreon MD [address] [place] [address], [facility] 2 [place] [phone] 05/04/2024 10:15 EST Ancillary Procedure [facility] Cardiology - [address] [place] [address] 05/04/2024 11:30 EST Appointment [facility] Hematology & Oncology [address] [address] 05/04/2024 12:00 EST Appointment [facility] Hematology & Oncology [address] [address] 06/12/2024 13:00 EST Appointment [facility] Radiology CT - [address] [address] documented as of this encounter Visit Diagnoses Not on filedocumented in this encounter Care Teams Coordinator Of Rehabilitation Services Relationship Specialty Start Date End Date Linda Blancas MD [address] [place] [address] 30 [place] [address] PCP - General 01/06/11 Adolfo Carreno MD [address] [place] [address] [phone] General Surgery 04/26/19 Augustina Colin MD PhD [address] [place] [phone] Medical Oncology 04/26/19 documented as of this encounter
--- OUTSIDE RECORDS SUMMARY | 2024-03-20 14:45 | XMS_ITS | Encounter Summary ---
Author Organization [facility] Address [address] [place] [address] Care Team Providers Care Phlebotomist Medical Lab Assistant Name Role Phone Linda Blancas MD Primary Care Provider [phone] Adolfo Carreno MD Unavailable [phone] Augustina Colin MD PhD Unavailable Unavailable Reason for Visit * Reason Comments Follow-up Encounter Details Date Type Department Care Team (Late st Contact Info) Description 04/04/2023 16:15 EDT Office Visit [facility] Surgical Oncology - [address] [address] Adolfo Carreno MD [address] [place] [address], Level 2 [place] [phone] Routine cancer follow-up visit (Primary Dx); Personal history of breast cancer Social History Tobacco Use Types Packs/Day Years [...] as of this encounter Progress Notes * Adolfo Carreno MD - 04/04/2023 1615 EDT Sendy Costa is a 62-year-old woman seen in follow-up. 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 Unfortunately she developed a recurrence in the mastectomy site and was not found to have distant metastatic disease at that same time. Patient subsequently had a resection of that recurrent disease in the mastectomy site with new implant. It has been on it, combination of different treatments for the systemic disease since that time. She is recently had some progression of disease. She has had liver lesions which have been ablated in the past and those have recurred. She also has some bone metastases. She is now on Xeloda, so far she is tolerating that reasonably well. Patient did have a choking episode recently and wanted to check theneck area to be showed no abnormalities were noted. On exam today the patient is in no acute distress, there is no scleral icterus. There is no palpable neck masses. No palpable cervical or supraclavicular lymph nodes are noted. There is no nodules inthe thyroid area, no carotid bruits or JVD were noted. Lungs are clear to auscultation, heart is a regular rate and rhythm without S3-S4 murmurs. Breast exam reveals a mastectomy on the right with implant reconstruction no suspicious skin changes are noted. There is no palpable abnormalities in themastectomy site on the right. The ampulla was a good position. There is no palpable abnormalities in the right axilla. The left breast has an implant as well no palpable abnormalities of felt in the breast tissue. There is no discharge, there is no palpable lymph nodes in the left axilla. There is no palpable abdominal masses, no hepatosplenomegaly was noted. Enhanced evaluation of the soft tissue of the mastectomy site on the right shows no evidence of recurrent disease. The implant was in good position without abnormalities. No abnormal appearing lymph nodes are seen in the internal mammary or in the axillary region. On the left side there is no abnormality seen within the breast glandular tissue. The implant was a good position was no abnormalitiesin the axilla or internal mammary area. The neck was examined in both the right and left sides and no suspicious lymph nodes were noted in either side. No other abnormalities were identified. Impression: Patient with recurrent breast cancer undergoing systemic therapies. We will continue tofollow patient on a once year basis. documented in this encounter Plan of Treatment Upcoming Encounters Date Type Department Care Team (Late st Contact Info) Description 04/02/2024 10:30 EDT Appointment [facility] Interventional Radiology Unit [address] [place] [address] [phone] 04/02/2024 15:15 EDT Office Visit [facility] Surgical Oncology - [address] [phone] Adolfo Carreno MD [address] [place] [address], Level [address] [place] [phone] 04/05/2024 9:[address] [facility] - [facility] Palliative Care Services [address] [place] [address] [phone] Chichi Woods MD [address] [place] [address], [address] [phone] 04/11/2024 15:00 EDT Telemedicine [facility] Hematology & Oncology - [address] [phone] Alisson Carreon MD [address] [place] [address], [facility] 2 [place] [phone] 04/13/2024 13:30 EDT Appointment [facility] Hematology & Oncology [address] [phone] 04/13/2024 14:00 EDT Appointment [facility] Hematology & Oncology - [address] [phone] 04/16/2024 10:[address] [facility] - [facility] Palliative Care Services [address] [place] [address] [phone] Chichi Woods MD [address] [place] [address], [address] [phone] 04/24/2024 9:[address] [facility] Radiology CT Outpatient - [address] [phone] 04/24/2024 11:00 EST Appointment [facility] Breast Imaging - [facility] S [address] 262531 04/27/2024 12:00 EST Appointment [facility] Hematology & Oncology [address] [phone] 05/02/2024 15:00 EST Telemedicine [facility] Hematology & Oncology - [address] [phone] Alisson Carreon MD [address] [place] [address], [facility] 2 [place] [phone] 05/04/2024 10:15 EST Ancillary Procedure [facility] Cardiology - [address] [place], [place] [phone] 05/04/2024 11:30 EST Appointment [facility] [place] Hematology & Oncology - [address] [address] 05/04/2024 12:00 EST Appointment [facility] Hematology & Oncology - [address] [address] 06/12/2024 13:00 EST [facility]ointment [facility] Radiology [facility] - [address] [address] documented as of this encounter Procedures Procedure Name Priority Date/Time Associated Diagnosis Comments ORDERS - SCANNED 04/05/2023 11:13 EDT documented in this encounter Results * ORDERS - SCANNED (04/05/2023 11:13 EDT) 04/05/2023 11:1 3 EDT Scan 2 Social Insurance Adviser ADMISSION ORDERABLE S documented in this encounter Visit Diagnoses Diagnosis Routine cancer follow-up visit- Primary Other follow-up examination Personal history of breast cancer Personal history of malignant neoplasm of breast documented in this encounter Care Teams Phlebotomist Medical Lab Assistant Relationship Specialty Start Date End Date Linda lBancas MD [facility] [address] [place] [address] PCP - General 01/06/11 Adolfo Carreno MD [address] [place] [phone] General Surgery 04/26/19 Augustina Colin MD PhD [address] [place] [phone] Medical Oncology 04/26/19 documented as of this encounter
--- OUTSIDE RECORDS SUMMARY | 2024-03-20 14:45 | XMS_ITS | Encounter Summary ---
Author Organization [facility] Address [address] [place] [address] Care Team Providers Care Manager Service Desk Name Role Phone Linda Blancas MD Primary Care Provider [phone] Adolfo Carreno MD Unavailable [phone] Augustina Colin MD PhD Unavailable Unavailable Reason for Visit * Reason Onset Date Comments Appointment Related 11/25/2022 Encounter Details Date Type Department Care Team (Late st Contact Info) Description 11/25/2022 Telephone [facility] Ambulatory Infusion Center [address], [place] [phone] Augustina Colin, PhD Appointment Related Social History [...] encounter Miscellaneous Notes * Telephone Encounter - Troy Mendezy - 11/25/2022 0813 EDT Screening Questions prior to Med Release 1. Do you have a fever or have had a fever of 100.4 degrees F. in the last 24 hours? no 2. Are you taking any medication for a recent infection? no 3. Have you had a recent illness, or changes in your health since your last infusion? If so, is your ordering provider aware? no 4. (for Remicade, Entyvio, Inflectra, Renflexis, Rituximab, Ocrevus, pts, 'mab' patients) Have you had any recent surgeries in the last month or have any planned in the near future? no documented in this encounter Plan of Treatment Upcoming Encounters Date Type Department Care Team (Late st Contact Info) Description 04/02/2024 10:30 EDT Appointment [facility] Interventional Radiology Unit [address] [place] [address] [phone] 04/02/2024 15:15 EDT Office Visit [facility] Surgical Oncology - [facility] [address], [place] [phone] Adolfo Carreno MD 111 [facility], Level 2 [place] [phone] 04/05/2024 9:30 EDT Telemedicine [facility] - [facility] Palliative Care Services [address], [place] [phone] Chichi Woods MD [address] [phone] 04/11/2024 15:00 EDT Telemedicine [facility] Hematology & Oncology - [address] [phone] Alisson Carreon MD [address] [place] [address], [facility] 2 [place] [phone] 04/13/2024 13:30 EDT Appointment [facility] Hematology & Oncology - [address] [phone] 04/13/2024 14:00 EDT Appointment [facility] Hematology & Oncology [address] 142001 04/16/2024 10:00 EST Telemedicine [facility] - [facility] Palliative Care Services [address] [place] [address] [phone] Chichi Woods MD [address] [place] [address] [phone] 04/24/2024 9:00 EST Appointment [facility] Radiology CT Outpatient - [address] 130651 04/24/2024 11:00 EST Appointment [facility] Breast Imaging - [facility] S [address] [phone] 04/27/2024 12:00 EST Appointment [facility] Hematology & Oncology - [address] [phone] 05/02/2024 15:00 EST Telemedicine [facility] Hematology & Oncology - [address] [phone] Alisson Carreon MD [address] [place] [address], [facility] 2 [place] [phone] 05/04/2024 10:15 EST Ancillary Procedure [facility] Cardiology - [address] [place] [address] 05/04/2024 11:30 EST Appointment [facility] Hematology & Oncology [address] [address] 05/04/2024 12:00 EST Appointment [facility] Hematology & Oncology [address] [address] 06/12/2024 13:00 EST Appointment [facility] Radiology CT - [address] 306271 documented as of this encounter Visit Diagnoses Not on filedocumented in this encounter Care Teams Manager Service Desk Relationship Specialty Start Date End Date Linda Blancas MD [facility] [address] [place] [address] PCP - General 01/06/11 Adolfo Carreno MD [address] [place] [phone] General Surgery 04/26/19 Augustina Colin MD PhD [address] [place] [address] 2 [place] [phone] Medical Oncology 04/26/19 documented as of this encounter
--- OUTSIDE RECORDS SUMMARY | 2024-03-20 14:45 | XMS_ITS | Encounter Summary ---
Author Organization [facility] Address [address] [place] [address] Care Team Providers Care Bag Press Operator Name Role Phone Linda Blancas MD Primary Care Provider [phone] Adolfo Carreno MD Unavailable [phone] Augustina Colin MD PhD Unavailable Unavailable Reason for Visit * Reason Onset Date Comments Medications Refill 03/22/2023 Encounter Details Date Type Department Care Team (Late st Contact Info) Description 03/22/2023 Telephone [facility] Hematology & Oncology - [facility] [address], [place] [phone] Mira Acuña NP 111 [facility], Level [address] [place] [address] Medications Refill Social History Tobacco [...] Dispensed Refills Start Date End Da te capecitabine (XELODA) 500 mg tabletIndications:Malign ant neoplasm of right female breast, unspecified estrogen receptor status, unspecified site of breast (HCC-CMS) Take 3 Tablets by mouth every 12 hours. one week on, one week off 84 Tablet 3 03/28/2023 09/22/2023 documented in this encounter Miscellaneous Notes * Telephone Encounter - Bladimir Lamas RN - 03/28/2023 1640 EDT Per chart, capecitabine 500 mg PO 3 tabs BID was sent to patient's local pharmacy on 03/22/2023: [facility] - [place], [place] - [address] Called and spoke with [facility] that capecitabine prescription was sent to wrong pharmacy - patient receives the medication with [facility]. Claire stated that per their system, the Rx was sent to [facility] speciality pharmacy so Claier will call their speciality pharmacy to cancel the order and call our office back to update. ePrescribed same prescription to our speciality pharmacy at this time. Transferred call received from Misa [facility], and spoke with [facility] pharmacy and stated their speciality pharmacy cancelled the prescription for capecitabine at this time.---SHELLEY Quick 03/28/2023 at 16:49. * Telephone Encounter - Viridiana Kruse - 03/22/2023 1130 EDT Medication Refill Request Medication: capecitabine Patient needs medication by: 04/01 Scheduled outreach date: 03/23 Pharmacy: [facility] ([facility]) [address] Next appt: 04/25/2023 documented in this encounter Plan of Treatment Upcoming Encounters Date Type Department Care Team (Late st Contact Info) Description 04/02/2024 10:30 EDT Appointment [facility] Interventional Radiology Unit [address] [place] [address] [phone] 04/02/2024 15:15 EDT Office Visit [facility] Surgical Oncology [address] [phone] Adolfo Carreno MD [address] [place] [address] 2 [place] [phone] 04/05/2024 9:30 EDT Telemedicine [facility] - [facility] Palliative Care Services [address] [place] [address] [phone] Chichi Woods MD [address] [place] [address], [address] [phone] 04/11/2024 15:00 EDT Telemedicine [facility] Hematology & Oncology [address] [phone] Alisson Carreon MD [address] [place] [address] 2 [place] [phone] 04/13/2024 13:30 EDT Appointment [facility] Hematology & Oncology [address] [phone] 04/13/2024 14:00 EDT Appointment [facility] Hematology & Oncology - [address] [phone] 04/16/2024 10:00 EST Telemedicine [facility] - [facility] Palliative Care Services [address] [place] [address] [phone] Chichi Woods MD 111 [facility], [address] [phone] 04/24/2024 9:00 EST Appointment [facility] Radiology CT Outpatient - [address] [phone] 04/24/2024 11:00 EST Appointment [facility] Breast Imaging - [address] [phone] 04/27/2024 12:00 EST Appointment [facility] Hematology & Oncology - [address] [phone] 05/02/2024 15:00 EST Telemedicine [facility] Hematology & Oncology - [address] [phone] Alisson Carreon MD [address] [place] [address], [facility], [address] [place] [phone] 05/04/2024 10:15 EST Ancillary Procedure [facility] Cardiology - [place] [address] 05/04/2024 11:30 EST Appointment [facility] Hematology & Oncology - [address] [phone] 05/04/2024 12:00 EST Appointment [facility] Hematology & Oncology - [address] [phone] 06/12/2024 13:00 EST Appointment [facility] Radiology CT - [facility] [address] [place], [place] [phone] documented as of this encounter Visit Diagnoses Diagnosis Malignant neoplasm of right female breast, unspecified estrogen receptor status, unspecified site of breast (HCC-CMS)- Primary documented in this encounter Discontinued Medications Medication Sig Discontinue Reason Start Date End Da te omeprazole (PRILOSEC) 20 mg capsule Take 1 Capsule by mouth daily. Drug interaction 03/28/2023 capecitabine (XELODA) 500 mg tabletIndications:Malign ant neoplasm of right female breast, unspecified estrogen receptor status, unspecified site of breast (HCC-CMS) Take 3 Tablets by mouth every 12 hours. one week on, one week off Reorder 03/22/2023 03/28/2023 documented as of this encounter Care Teams Bag Press Operator Relationship Specialty Start Date End Date Linda Blancas MD [address] [place] [address] 30 [place] [address] PCP - General 01/06/11 Adolfo Carreno MD [address] [place] [phone] General Surgery 04/26/19 Augustina Colin MD PhD [address] [place] [phone] Medical Oncology 04/26/19 documented as of this encounter
--- OUTSIDE RECORDS SUMMARY | 2024-03-20 14:45 | XMS_ITS | Encounter Summary ---
Author Organization [facility] Address [address] [place] [address] Care Team Providers Care Irrigation Foreman Name Role Phone Linda Blancas MD Primary Care Provider Adolfo Carreno MD Unavailable [phone] Augustina Colin MD PhD Unavailable Unavailable Reason for Referral * Radiology Services (Routine/Next Available) - Authorized Specialty Diagnoses / Procedures [facility] Referred To Contact Radiology Diagnoses Metastases to the liver (HCC-CMS) Procedures MR ABDOMEN W WO FILIBERTO Moya, David Rowley MD [address] [place] [phone] [facility] Referral ID Status Reason Start Date Expiration Date V isits Requested Visits Authorized [id number] Authorized 05/13/2023 11/09/2023 1 1 Reason for Visit * Reason Comments IR Procedure Follow-up Encounter Details Date Type Department Care Team (Late st Contact Info) Description 03/02/2023 15:00 EDT Telemedicine [facility] Interventional Radiology - [address] [phone] David Moya MD [address] [place], [place] [phone] Metastases to the liver (HCC-CMS) (Primary Dx) [...] Progress Notes * David Moya MD - 03/02/2023 1500 EDT Subjective: Patient ID: Sunshine Pleitez is an 62 y.o. female. Chief Complaint Patient presents with ??? IR Procedure Follow-up Type of visit: Televideo Oncologist: Augustina Colin [facility] 62-year-old female seen in follow-up after liver directed therapy for breast cancer liver metastases. Patient with a history of metastases to her mediastinum, cervical lymph nodes, lungs, liver, and bones, who developed progressive disease in her liver last fall. Additionally, the patient was having significant uqly-zxw-scga symptoms related to side effects from chemotherapy and desired to reduceher dose. Patient underwent conventional dose transarterial radioembolization to the right lobe of her liver on 04/08/2022, followed by the left lobe of the liver on 05/14/2022. She tolerated these treatments well. Patient with unchanged energy level, feeling well. No recent labs. MRI 02/28/2023 reveals progressive disease in both lobes of her liver. Patient Active Problem List Diagnosis ??? Papanicolaou smear of cervix with low grade squamous intraepithelial lesion (LGSIL) ??? Premature ovarian failure ??? Herpes simplex type 2 infection ??? Menopausal and postmenopausal disorder ??? Encounter for routine gynecological examination ??? Lumbar radicular syndrome ??? Acquired spondylolisthesis ??? Lumbosacral spondylosis without myelopathy ??? Acquired absence of breast and nipple ??? Personal history of malignant neoplasm of breast ??? Plantar fasciitis of left foot ??? Unstable right ankle ??? Hallux rigidus of right foot ??? Trigger thumb of left hand ??? Plantar fat pad atrophy ??? Breast lump ??? Primary malignant neoplasm of breast with metastasis (HCC-CMS) ??? Malignant neoplasm of female breast (HCC-CMS) ??? Encounter for palliative care ??? Osteopenia ??? S/P breast reconstruction, right ??? Lipoma of back ??? Retinal tear of left eye ??? PVD (posterior vitreous detachment), both eyes ??? Bilateral retinal lattice degeneration Past Medical History: Diagnosis Date ??? Acquired spondylolisthesis ??? Activity, other involving cardiorespiratory exercise snow shoeing ??? Allergy ??? Arthritis right big toe ??? Back pain spinal fussion no issues currently 08/25/20 ??? Breast cancer ([facility]-CMS) November 2003 DCIS - right breast ??? Breast cancer, right (HCC-CMS) ??? Depression 08/25/20 well controlled ??? Environmental allergies ??? Exercise involving walking ??? GERD (gastroesophageal reflux disease) well controlled 08/25/20 ??? 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 ??? History of general anesthesia ??? Lumbar radicular syndrome ? ? Nausea & vomiting ??? Numbness ??? Wears glasses Past Surgical History: Procedure Laterality Date ??? BACK SURGERY December 2011 L3 - S1 spinal decompression and fusion - pt has hardware in place-[place] no complications ??? BREAST RECONSTRUCTION 01/30/2004 subpectoral implant - [place] no complications ??? BREAST RECONSTRUCTION 05/2018 right - [place] no complications ??? BREAST SURGERY 01/30/2004 Right mastectomy - [place] no complications ??? BREAST SURGERY 08/2018 trim stencil maker placed right breast - [place] no complications ??? CARPAL TUNNEL RELEASE 200705/07/2019 beir block - no complications ??? FOOT SURGERY 05/2021 right big toe fused, right little toe screw ??? LIPOMA RESECTION 2001 05/07/2019 [place] no complications ??? MASTECTOMY Right ??? PA INSJ/RPLCMT BREAST IMPLANT Feb MASTECTOMY Bilateral 05/30/2019 Exchange right tissue trim stencil maker to silicone implant, exchange of left implant for matching performedby Tylor Boss MD at [facility] OR Family History Problem Relation Age of Onset ??? Cancer Father bladder ??? Stroke Mother ??? Cancer Brother 59 esophageal ??? Stroke Brother ??? Liver Disease Brother ??? Cancer Maternal Uncle bladder ??? Breast Cancer Paternal Aunt 35 ??? Cancer Paternal Aunt 35 breast Social Social History Tobacco Use ??? Smoking status: Never ??? Smokeless tobacco: Never Vaping Use ??? Vaping Use: Never used Substance Use Topics ??? Alcohol use: Yes Alcohol/week: 2.0 standard drinks of alcohol Types: 2 Glasses of wine per week ??? Drug use: No No outpatient medications have been marked as taking for the 03/02/23 encounter (Telemedicine) with David Moya MD. Allergies Allergen Reactions ??? Amoxicillin Other (See Comments) and Rash Red rash ??? Sulfa (Sulfonamide Antibiotics) Hives Light lavender rash ROS - See HPI Objective: There were no vitals taken for this visit. Physical Exam Not performed Assessment: 62-year-old female with progressive metastases in her liver from breast cancer. At this point, I would hold on further liver directed therapy until restaging scans are complete. Additionally, a change to her systemic therapy may be warranted, per Dr. Colin. If the patient is found to have liver specific disease progression, then I would consider repeat radioembolization to her liver in the future. Plan: Sunshine was seen today for ir procedure follow-up. Diagnoses and all orders for this visit: Metastases to the liver (HCC-CMS) - MR ABDOMEN W WO CONTRAST; Future MRI and office visit in 3 months time No current plans for repeat liver directed therapy Restaging scans per Dr. Colin, with possible change to her systemic therapy ???I spent a total of 30 minutes on the date of this encounter meeting with the patient and reviewing documentation/coordinating care as described in the above note.?? David Moya MD TELEMEDICINE VIDEO VISIT Today's visit was provided through telemedicine video conferencing: I have reviewed the appropriateness of using video technology with the patient with regards to today's visit. The location of the patient : Home Patient location state: Visit Location State: [place] The location of the provider: Office Provider location state: Visit Location State: [place] The following people and their roles were present for today's visit: Appointment Provider: David Moya MD Geoffrey Michael Scriver, MD documented in this encounter Plan of Treatment Upcoming Encounters Date Type Department Care Team (Late st Contact Info) Description 04/02/2024 10:30 EDT Appointment [facility] Interventional Radiology Unit [address] [place] [address] [phone] 04/02/2024 15:15 EDT Office Visit [facility] Surgical Oncology - [address] [phone] Adolfo Carreno MD [address] [place] [phone] 04/05/2024 9:30 EDT Telemedicine [facility] Palliative Care Services [address] [place] [address] [phone] Chichi Woods MD [address] [place] [phone] 04/11/2024 15:00 EDT Telemedicine [facility] Hematology & Oncology [address] [phone] Alisson Carreon MD [address] [place] [phone] 04/13/2024 13:30 EDT Appointment [facility] Hematology & Oncology - [address] [phone] 04/13/2024 14:00 EDT Appointment [facility] Hematology & Oncology [address] [phone] 04/16/2024 10:00 EST Telemedicine [facility] - [facility] Palliative Care Services [address] [place] [address] [phone] Chichi Woods MD [address] [place] [address], [address] [phone] 04/24/2024 9:00 EST Appointment [facility] Radiology CT Outpatient - [address] [phone] 04/24/2024 11:00 EST Appointment [facility] Breast Imaging - [facility] [place] 1 [place], [place] 473191 04/27/2024 12:00 EST Appointment [facility] Hematology & Oncology [address] [phone] 05/02/2024 15:00 EST Telemedicine [facility] Hematology & Oncology - [address] [phone] Alisson Carreon MD [address] [place] [address], [facility] 2 [place] [phone] 05/04/2024 10:15 EST Ancillary Procedure [facility] Cardiology - [place] [address] 05/04/2024 11:30 EST Appointment [facility] Hematology & Oncology [address] [phone] 05/04/2024 12:00 EST Appointment [facility] Hematology & Oncology - [facility] [address] [place] [address] 06/12/2024 13:00 EST Appointment [facility] Radiology CT - [facility] [address] [place] [address] documented as of this encounter Results * MR ABDOMEN W WO CONTRAST (05/20/2023 16:34 EST) Anatomical Region Laterality Modality Body, Abdomen Magnetic Resonan ce 05/20/2023 17:2 6 EST Impressions 05/20/2023 17:26 EST 1. New and enlarged hepatic metastases. 2. Redemonstrated right iliac bone lesion. 3. Cholelithiasis. 4. Borderline enlarged spleen. [id number] Narrative 05/20/2023 17:26 EST MR ABDOMEN W [...] on prior bone scan, not in the medku-ck-hgjf on the most recent MRI abdomen. No [...] seen on prior bone scan,not in the jwzpm-sj-uguo on the most recent MRI abdomen. No definitechange compared with 11/13/2022, but not well compared as these are onlyvisible on the coronal plane. Localizer: No additional finding IMPRESSION 1. New and enlarged hepatic metastases. 2. Redemonstrated right iliac bone lesion. 3. Cholelithiasis. 4. Borderline enlarged spleen. [id number] David Moya MD [facility] MRI ORDE RABLES documented in this encounter Visit Diagnoses Diagnosis Metastases to the liver (HCC-CMS)- Primary Secondary malignant neoplasm of liver Metastases to the liver (HCC-CMS) Secondary malignant neoplasm of liver documented in this encounter Care Teams Irrigation Foreman Relationship Specialty Start Date End Date Linda Blancas MD [address] [place] [address] 30 [place] [address] PCP - General 01/06/11 Adolfo Carreno MD [address] [place] [phone] General Surgery 04/26/19 Augustina Colin MD PhD [address] [place] [phone] Medical Oncology 04/26/19 documented as of this encounter
--- OUTSIDE RECORDS SUMMARY | 2024-03-20 14:45 | XMS_ITS | Encounter Summary ---
Author Organization [facility] Address [address] [place] [address] Care Team Providers Care Market Garden Worker Name Role Phone Linda Blancas MD Primary Care Provider Adolfo Carreno MD Unavailable [phone] Augustina Colin MD PhD Unavailable Unavailable Reason for Visit * Radiology Services (Routine/Next Available) - Authorization Not Required Specialty Diagnoses / Procedures Referred By Contac t Referred To Contact Nuclear Medicine Diagnoses Metastatic breast cancer Metastasis to bone (HCC-CMS) Procedures NM BONE WHOLE BODY Nadeen Blood PA-C 111 [facility] 2 [place] [address] [facility] Referral ID Status Reason Start Date Expiration Date Visits Requested Visits Authorized [id number] Authorization Not Required 09/08/2022 1 1 Encounter Details Date Type Department Care Team (Latest Contact Info) Description 11/25/2022 14:15 EDT - 11/25/2022 23:59 EDT Hospital [facility] Radiology Nuclear Medicine and PET - [address] [address] Discharge Disposition: Home or Self Care Social [...] Tablets by mouth as needed. 12/07/2023 mv-mn/C/glutamin/lysin/h [id number] (AIRBORNE, ASCORBATE SODIUM, ORAL) Take by mouth [...] [facility] [address] [place] [address] [phone] 04/02/2024 15:15 EDT Office Visit [facility] Surgical Oncology - [address] [phone] Adolfo Carreno MD [address] [place] [address] [phone] 04/05/2024 9:30 EDT Telemedicine [facility] Palliative Care Services [address] [place] [address] [phone] Chichi Woods MD [address] [place] [phone] 04/11/2024 15:00 EDT Telemedicine [facility] Hematology & Oncology - [address] [phone] Alisson Carreon MD [address] [place] [address] [phone] 04/13/2024 13:30 EDT Appointment [facility] Hematology & Oncology - [address] [phone] 04/13/2024 14:00 EDT Appointment [facility] Hematology & Oncology - [address] [phone] 04/16/2024 10:00 EST Telemedicine [facility] - [facility] Palliative Care Services [address] [place] [address] [phone] Chichi Woods MD [address] [place] [address], [address] [phone] 04/24/2024 9:00 EST Appointment [facility] Radiology CT Outpatient - [address] [phone] 04/24/2024 11:00 EST Appointment [facility] Breast Imaging - [address] [phone] 04/27/2024 12:00 EST Appointment [facility] Hematology & Oncology - [address] [phone] 05/02/2024 15:00 EST Telemedicine [facility] Hematology & Oncology [address] [phone] Alisson Carreon MD [address] [place] [address], Level [address] [place] [phone] 05/04/2024 10:15 EST Ancillary Procedure [facility] Cardiology - [place] [address] 05/04/2024 11:30 EST Appointment [facility] Hematology & Oncology [address] [address] 05/04/2024 12:00 EST Appointment [facility] Hematology & Oncology - [address] [phone] 06/12/2024 13:00 [facility] Radiology CT - Main [address] [address] documented as of this encounter Procedures Procedure Name Priority Date/Time Associated Diagnosis Comments NM BONE WHOLE BODY Routine 11/25/2022 14 :51 [...] Otherwise stable bone scan as described. Nadeen RENEE NM ORDERABLES documented in this encounter Visit Diagnoses Not on filedocumented in this encounter Care Teams Market Garden Worker Relationship Specialty Start Date End Date Linda Blancas MD [facility] [address] [place] [address] PCP - General 01/06/11 Adolfo Carreno MD [address] [place] [address] 2 [place] [phone] General Surgery 04/26/19 Augustina Colin MD PhD [address] [place] [phone] Medical Oncology 04/26/19 documented as of this encounter
--- OUTSIDE RECORDS SUMMARY | 2024-03-20 14:45 | XMS_ITS | Encounter Summary ---
Author Organization [facility] Address [address] [place] [address] Care Team Providers Care Industrial Technology Teacher Name Role Phone Linda Blancas MD Primary Care Provider [phone] Adolfo Carreno MD Unavailable [phone] Augustina Colin MD PhD Unavailable Unavailable Encounter Details Date Type Department Care Team (Late st Contact Info) Description 12/10/2022 Specialty Pharmacy [facility] [address] [place], [place] [id number] Allen Day, [facility] Social History Tobacco Use Types Packs/Day Years [...] Appointment [facility] Interventional Radiology Unit [address] [place] [address] [phone] 04/02/2024 15:15 EDT Office Visit [facility] Surgical Oncology - [address] [phone] Adolfo Carreno MD [address] [place] [address] [phone] 04/05/2024 9:30 EDT Telemedicine [facility] - [facility] [address] [place] [address] 067491 Chichi Woods MD [address] [place] [address] [phone] 04/11/2024 15:00 EDT Telemedicine [facility] Hematology & Oncology [address] 369271 Alisson Carreon MD [address] [place] [address] [phone] 04/13/2024 13:30 EDT Appointment [facility] Hematology & Oncology [address] [id number] 04/13/2024 14:00 EDT Appointment [facility] Hematology & Oncology [address] [id number] 04/16/2024 10:00 EST Telemedicine [facility] - [facility] [address] [place] [address] [phone] Chichi Woods MD [address] [place] [address], [address] [place] [phone] 04/24/2024 9:[address] [facility] Radiology CT Outpatient - [address] [id number] 04/24/2024 11:00 EST Appointment [facility] Breast Imaging - [facility] S [place] 1 [place], [place] 207881 04/27/2024 12:00 EST Appointment [facility] Hematology & Oncology - [address] [id number] 05/02/2024 15:00 EST Telemedicine [facility] Hematology & Oncology - [address] 058141 Alisson Carreon MD [address] [place] [address], Level 2 [place] [phone] 05/04/2024 10:15 EST Ancillary Procedure [facility] Cardiology - [address] [place], [place] [phone] 05/04/2024 11:30 EST Appointment [facility] Hematology & Oncology - [address] [id number] 05/04/2024 12:00 EST Appointment [facility] Hematology & Oncology [address] [phone] 06/12/2024 13:[address] [facility] Radiology CT - [address] [phone] documented as of this encounter Visit Diagnoses Not on filedocumented in this encounter Care Teams Industrial Technology Teacher Relationship Specialty Start Date End Date Linda Blancas MD [facility] [address] [place] [address] PCP - General 01/06/11 Adolfo Carreno MD [address] [place] [address], [facility] 2 [place] [phone] General Surgery 04/26/19 Augustina Cloin MD PhD [address] [place] [address], [address] [phone] Medical Oncology 04/26/19 documented as of this encounter
--- OUTSIDE RECORDS SUMMARY | 2024-03-20 14:45 | XMS_ITS | Encounter Summary ---
Author Organization [facility] Address [address] [place] [address] Care Team Providers Care Subgrade Roller Operator Name Role Phone Linda Blancas MD Primary Care Provider [phone] Adolfo Carreno MD Unavailable [phone] Augustina Colin MD PhD Unavailable Unavailable Encounter Details Date Type Department Care Team (Late st Contact Info) Description 01/12/2023 Orders Only [facility] Interventional Radiology - Main [place] [address] [place] [address] Marisol Cunha RN Malignant neoplasm metastatic to liver (HCC-CMS) (Primary Dx) Social History Tobacco [...] Appointment [facility] Interventional Radiology Unit [address] [place] [address] [phone] 04/02/2024 15:15 EDT Office Visit [facility] Surgical Oncology - [address] [phone] Adolfo Carreno MD [address] [place] [address] [phone] 04/05/2024 9:30 EDT Telemedicine [facility] Palliative Care Services [address] [place] [address] [phone] Chichi Woods MD [address] [place] [address] [phone] 04/11/2024 15:00 EDT Telemedicine [facility] Hematology & Oncology [address] 675861 Alisson Carreon MD [address] [place] [address] [phone] 04/13/2024 13:30 EDT Appointment [facility] Hematology & Oncology [address] 000191 04/13/2024 14:00 EDT Appointment [facility] Hematology & Oncology [address] 744451 04/16/2024 10:00 EST Telemedicine [facility] - [facility] Palliative Care Services [address] [place] [address] [phone] Chichi Woods MD [address] [place] [address], [address] [phone] 04/24/2024 9:00 EST Appointment [facility] Radiology CT Outpatient - [address] [id number] 04/24/2024 11:00 EST Appointment [facility] Breast Imaging - [facility] S [place] 1 [place], [place] 746741 04/27/2024 12:00 EST Appointment [facility] Hematology & Oncology - [address] [phone] 05/02/2024 15:00 EST Telemedicine [facility] Hematology & Oncology - [address] [phone] Alisson Carreon MD [address] [place] [address], Level 2 [place] [phone] 05/04/2024 10:15 EST Ancillary Procedure [facility] Cardiology - [place] [address] 05/04/2024 11:30 EST Appointment [facility] Hematology & Oncology - [address] 163521 05/04/2024 12:00 EST Appointment [facility] Hematology & Oncology - [address] [id number] 06/12/2024 13:00 EST Appointment [facility] Radiology CT - [address] [id number] documented as of this encounter Visit Diagnoses Diagnosis Malignant neoplasm metastatic to liver (HCC-CMS)- Primary Secondary malignant neoplasm of liver documented in this encounter Orders Lab Orders Without Results Count Last Ordered D ate First Ordered Date COMPLETE BLOOD COUNT AND DIFFERENTIAL 1 07/2022 COMPREHENSIVE METABOLIC PANEL (CMP) 1 01/12 documented in this encounter Care Teams Subgrade Roller Operator Relationship Specialty Start Date End Date Linda Blancas MD [facility] [address] [place] [address] PCP - General 01/06/11 Adolfo Carreno MD [address] [place] [address] 2 [place] [phone] General Surgery 04/26/19 Augustina Colin MD PhD [address] [place] [address] 2 [place] [phone] Medical Oncology 04/26/19 documented as of this encounter
--- OUTSIDE RECORDS SUMMARY | 2024-03-20 14:45 | XMS_ITS | Encounter Summary ---
Author Organization [facility] Address [address] [place] [address] Care Team Providers Care Director Of Teacher Education Name Role Phone Linda Blancas MD Primary Care Provider [phone] Adolfo Carreno MD Unavailable [phone] Augustina Colin MD PhD Unavailable Unavailable Encounter Details Date Type Department Care Team (Late st Contact Info) Description 11/25/2022 Orders Only [facility] Radiology - Main [place] [address] [place], [place] [phone] Lewis Cooley MD 111 [facility], Level 1 [place] [phone] Social History Tobacco Use Types [...] [facility] Interventional Radiology Unit [address] [place] [address] [phone] 04/02/2024 15:15 EDT Office Visit [facility] Surgical Oncology - [address] 740361 Adolfo Carreno MD [address] [place] [address] 2 [place] [phone] 04/05/2024 9:30 EDT Telemedicine [facility] - [facility] Palliative Care Services [address] [place] [address] [phone] Chichi Woods MD [address] [place] [address] [phone] 04/11/2024 15:00 EDT Telemedicine [facility] Hematology & Oncology - [address] [phone] Alisson Carreon MD [address] [place] [address] 2 [place] [phone] 04/13/2024 13:30 EDT Appointment [facility] Hematology & Oncology [address] [phone] 04/13/2024 14:00 EDT Appointment [facility] Hematology & Oncology - [address] [phone] 04/16/2024 10:00 EST Telemedicine [facility] - [facility] Palliative Care Services [address] [place], [place] 719041 Chichi Woods MD 111 [facility], [address] [phone] 04/24/2024 9:00 EST Appointment [facility] Radiology CT Outpatient - [address] [id number] 04/24/2024 11:00 EST Appointment [facility] Breast Imaging - [address] [id number] 04/27/2024 12:00 EST Appointment [facility] Hematology & Oncology - [address] [phone] 05/02/2024 15:00 EST Telemedicine [facility] Hematology & Oncology - [address] 308551 Alisson Carreon MD [address] [place] [address], [facility] 2 [place] [phone] 05/04/2024 10:15 EST Ancillary Procedure [facility] Cardiology - [place] [address] 05/04/2024 11:30 EST Appointment [facility] Hematology & Oncology - [address] [id number] 05/04/2024 12:00 EST Appointment [facility] Hematology & Oncology - [address] [address] 06/12/2024 13:00 EST Appointment [facility] Center Radiology CT - [address] [address] documented as of this encounter Visit Diagnoses Not on filedocumented in this encounter Care Teams Director Of Teacher Education Relationship Specialty Start Date End Date Linda Blancas MD [facility] [address] [place] [address] PCP - General 01/06/11 Adolfo Carreno MD [address] [place] [address] [phone] General Surgery 04/26/19 Augustina Colin MD PhD [address] [place] [phone] Medical Oncology 04/26/19 documented as of this encounter
--- OUTSIDE RECORDS SUMMARY | 2024-03-20 14:45 | XMS_ITS | Encounter Summary ---
Author Organization [facility] Address [address] [place] [address] Care Team Providers Care Property Assessment Monitor Name Role Phone Linda Blancas MD Primary Care Provider [phone] Adolfo Carreno MD Unavailable [phone] Augustina Colin MD PhD Unavailable Unavailable Encounter Details Date Type Department Care Team (Late st Contact Info) Description 02/21/2023 Specialty Pharmacy [facility] Ambulatory Pharm[facility] - [facility] [address] [place] [address] Allen Day, [facility] Social History Tobacco Use Types Packs/Day Years [...] [facility] Interventional Radiology Unit [address] [place] [address] [phone] 04/02/2024 15:15 EDT Office Visit [facility] Surgical Oncology - [address] [phone] Adolfo Carreno MD [address] [place] [address] [phone] 04/05/2024 9:30 EDT Telemedicine [facility] - [facility] Palliative Care Services [address] [place] [address] [phone] Chichi Woods MD [address] [place] [address] [phone] 04/11/2024 15:00 EDT Telemedicine [facility] Hematology & Oncology [address] 588551 Alisson Carreon MD [address] [place] [address] [phone] 04/13/2024 13:30 EDT Appointment [facility] Hematology & Oncology [address] [id number] 04/13/2024 14:00 EDT Appointment [facility] Hematology & Oncology [address] 081741 04/16/2024 10:00 EST Telemedicine [facility] - [facility] Palliative Care Services [address] [place] [address] 005721 Chichi Woods MD [address] [place] [address], [address] [place] [phone] 04/24/2024 9:00 EST Appointment [facility] Radiology CT Outpatient - [address] [id number] 04/24/2024 11:00 EST Appointment [facility] Breast Imaging - [facility] S [place] 1 [place], [place] 668221 04/27/2024 12:00 EST Appointment [facility] Hematology & Oncology - [address] [phone] 05/02/2024 15:00 EST Telemedicine [facility] Hematology & Oncology - [address] [phone] Alisson Carreon MD [address] [place] [address], Level 2 [place] [phone] 05/04/2024 10:15 EST Ancillary Procedure [facility] Cardiology - [address] [place], [place] [phone] 05/04/2024 11:30 EST Appointment [facility] Hematology & Oncology - [address] [phone] 05/04/2024 12:00 EST Appointment [facility] Hematology & Oncology [address] [phone] 06/12/2024 13:00 EST Appointment [facility] Radiology CT - [address] [phone] documented as of this encounter Visit Diagnoses Not on filedocumented in this encounter Care Teams Property Assessment Monitor Relationship Specialty Start Date End Date Linda Blancas MD [facility] [address] [place] [address] PCP - General 01/06/11 Adolfo Carreno MD [address] [place] [address], [facility] 2 [place] [phone] General Surgery 04/26/19 Augustina Colin MD PhD [address] [place] [address], [address] [phone] Medical Oncology 04/26/19 documented as of this encounter
--- OUTSIDE RECORDS SUMMARY | 2024-03-20 14:45 | XMS_ITS | Encounter Summary ---
Author Organization [facility] Address [address] [place] [address] Care Team Providers Care Glue Jointer Feeder Name Role Phone Linda Blancas MD Primary Care Provider [phone] Adolfo Carreno MD Unavailable Augustina Colin MD PhD Unavailable Unavailable Encounter Details Date Type Department Care Team (Late st Contact Info) Description 02/10/2023 Orders Only [facility] Hematology & Oncology - [facility] [address] [place] [address] Augustina Colin, PhD Social History Tobacco Use [...] Appointment [facility] Interventional Radiology Unit [address] [place] [address] [phone] 04/02/2024 15:15 EDT Office Visit [facility] Surgical Oncology - [address] 252831 Adolfo Carreno MD [address] [place] [address] [phone] 04/05/2024 9:30 EDT Telemedicine [facility] - [facility] Palliative Care Services [address] [place] [address] 074031 Chichi Woods MD [address] [place] [address] [phone] 04/11/2024 15:00 EDT Telemedicine [facility] Hematology & Oncology [address] 097751 Alisson Carreon MD [address] [place] [address] [phone] 04/13/2024 13:30 EDT Appointment [facility] Hematology & Oncology [address] [id number] 04/13/2024 14:00 EDT Appointment [facility] Hematology & Oncology [address] [id number] 04/16/2024 10:00 EST Telemedicine [facility] - [facility] Palliative Care Services [address] [place] [address] [phone] Chichi Woods MD [address] [place] [address], [address] [phone] 04/24/2024 9:00 EST Appointment [facility] Radiology CT Outpatient - [address] 615461 04/24/2024 11:00 EST Appointment [facility] Breast Imaging - [facility] S [place] 1 [place], [place] 614041 04/27/2024 12:00 EST Appointment [facility] Hematology & Oncology - [address] [id number] 05/02/2024 15:00 EST Telemedicine [facility] Hematology & Oncology - [address] [address] Alisson Carreon MD [address] [place] [address], [facility], Level 2 [place] [phone] 05/04/2024 10:15 EST Ancillary Procedure [facility] Cardiology - [address] [place], [place] [phone] 05/04/2024 11:30 EST Appointment [facility] Hematology & Oncology - [address] 552871 05/04/2024 12:00 EST Appointment [facility] Hematology & Oncology [address] [phone] 06/12/2024 13:00 EST Appointment [facility] Center Radiology CT - [address] [phone] documented as of this encounter Visit Diagnoses Not on filedocumented in this encounter Additional Health Concerns Infection Onset Date Last Indicated Resolved Time R/O COVID-19 12/12/2023 12/12/2023 12/12/2023 15:3 5 EDT R/O COVID-19 01/08/2024 01/08/2024 01/08/2024 18:2 6 EDT R/O COVID-19 01/16/2024 01/16/2024 01/16/2024 17:5 0 EDT documented as of this encounter Care Teams Glue Jointer Feeder Relationship Specialty Start Date End Date Linda Blancas MD [facility] [address] [place] [address] PCP - General 01/06/11 Adolfo Carreno MD [address] [place] [address] 2 [place] [phone] General Surgery 04/26/19 Augustina Colin MD PhD [address] [place] [address], [facility] 2 [place] [phone] Medical Oncology 04/26/19 documented as of this encounter
--- OUTSIDE RECORDS SUMMARY | 2024-03-20 14:45 | XMS_ITS | Encounter Summary ---
Author Organization [facility] Address [address] [place] [address] Care Team Providers Care Team Facilitator Name Role Phone Linda Blancas MD Primary Care Provider [phone] dAolfo Carreno MD Unavailable Augustina Colin MD PhD Unavailable Unavailable Encounter Details Date Type Department Care Team (Late st Contact Info) Description 03/02/2023 Orders Only [facility] Radiology - Main [place] [address] [place] [address] Pretty Thornton MD [address] [place] [phone] Social History Tobacco Use Types [...] [facility] Inter[facility] Radiology Unit [address] [place] [address] [phone] 04/02/2024 15:15 EDT Office Visit [facility] Surgical Oncology - [address] 410271 Adolfo Carreno MD [address] [place] [address] 2 [place] [phone] 04/05/2024 9:30 EDT Telemedicine [facility] - [facility] Palliative Care Services [address] [place] [address] [phone] Chichi Woods MD [address] [place] [address], [address] [phone] 04/11/2024 15:00 EDT Telemedicine [facility] Hematology & Oncology [address] 302951 Alisson Carreon MD [address] [place] [address] 2 [place] [phone] 04/13/2024 13:30 EDT Appointment [facility] Hematology & Oncology [address] [id number] 04/13/2024 14:00 EDT Appointment [facility] Hematology & Oncology - [address] [phone] 04/16/2024 10:00 EST Telemedicine [facility] - [facility] Palliative Care Services [address] [place], [place] 724601 Chichi Woods MD 111 [facility], [address] [phone] 04/24/2024 9:00 EST Appointment [facility] Radiology CT Outpatient - [address] [id number] 04/24/2024 11:00 EST Appointment [facility] Breast Imaging - [facility] S [address] 737191 04/27/2024 12:00 EST Appointment [facility] Hematology & Oncology - [address] [phone] 05/02/2024 15:00 EST Telemedicine [facility] Hematology & Oncology - [address] 176331 Alisson Carreon MD [address] [place] [address], Level 2 [place] [phone] 05/04/2024 10:15 EST Ancillary Procedure [facility] Cardiology - [place] [address] 05/04/2024 11:30 EST Appointment [facility] Hematology & Oncology - [address] [id number] 05/04/2024 12:00 EST Appointment [facility] Hematology & Oncology - [address] [address] 06/12/2024 13:00 EST Appointment [facility] Radiology CT - [address] 613721 documented as of this encounter Visit Diagnoses Not on filedocumented in this encounter Care Teams Team Facilitator Relationship Specialty Start Date End Date Linda Blancas MD [address] [place] [address] 30 [place] [address] PCP - General 01/06/11 Adolfo Carreno MD [address] [place] [phone] General Surgery 04/26/19 Augustina Colin MD PhD [address] [place] [phone] Medical Oncology 04/26/19 documented as of this encounter
--- OUTSIDE RECORDS SUMMARY | 2024-03-20 14:45 | XMS_ITS | Encounter Summary ---
Author Organization [facility] Address [address] [place] [address] Care Team Providers Care Guidance Counselor Name Role Phone Linda Blancas MD Primary Care Provider [phone] Adolfo Carreno MD Unavailable [phone] Augustina Colin MD PhD Unavailable Unavailable Reason for Visit * Prior Authorization (Urgent) - Authorization Not Required Specialty Diagnoses / Procedures Referred By Contac t Referred To Contact Infusion Therapy Diagnoses Malignant neoplasm of female breast, unspecified estrogen receptor status, unspecified laterality, unspecified site of breast ([facility]) Augustina Colin MD PhD [facility] [address] [place] [address] Referral ID Status Reason Start Date Expiration Date Visits Requested Visits Authorized [id number] Authorization Not Required Specialty Services Required 3 3 6 Encounter Details Date Type Department Care Team (Latest Contact Info) Description 02/28/2023 14:10 EDT - 02/28/2023 15:38 EDT Hospital Encounter [facility] Ambulatory Infusion [facility] [address], [place] [id number] Osteopenia of necks of both femurs (Primary [...] Sign Reading Time Taken Comments Blood Pressure 133/60 02/28/2023 1414 EDT Pulse - - Temperature 36.7 ??C (98.1 ??F) 02/28/2023 1414 EDT Respiratory Rate 16 02/28/2023 1414 EDT Oxygen Saturation 100% 02/28/2023 1414 EDT Inhaled Oxygen Concentration - - Weight [...] Tablets by mouth as needed. 12/07/2023 mv-mn/C/glutamin/lysin/h [id number] (AIRBORNE, ASCORBATE SODIUM, ORAL) Take by mouth [...] [facility] Interventional Radiology Unit [address] [place] [address] 04/02/2024 15:15 EDT Office Visit [facility] Surgical Oncology - [address] [phone] Adolfo Carreno MD 111 [facility], Level 2 [place] [phone] 04/05/2024 9:30 EDT Telemedicine [facility] - [facility] Palliative Care Services [address], [place] [phone] Chichi Woods MD 111 [facility], [address] [phone] 04/11/2024 15:00 EDT Telemedicine [facility] Hematology & Oncology - [address] [phone] Alisson Carreon MD [address] [place] [address], [facility] 2 [place] [phone] 04/13/2024 13:30 EDT Appointment [facility] Hematology & Oncology - [address] [id number] 04/13/2024 14:00 EDT Appointment [facility] Hematology & Oncology [address] 118221 04/16/2024 10:00 EST Telemedicine [facility] - [facility] Palliative Care Services [address] [place] [address] 269[address] Chichi Woods MD [address] [place] [address] [phone] 04/24/2024 9:00 EST Appointment [facility] Radiology CT Outpatient - [address] [id number] 04/24/2024 11:00 EST Appointment [facility] Breast Imaging - [address] [phone] 04/27/2024 12:00 EST Appointment [facility] Hematology & Oncology - [address] [phone] 05/02/2024 15:00 EST Telemedicine [facility] Hematology & Oncology - [address] [phone] Alisson Carreon MD [address] [place] [address], [facility] 2 [place] [phone] 05/04/2024 10:15 EST Ancillary Procedure [facility] Cardiology - [address] [place] [address] 05/04/2024 11:30 EST Appointment [facility] Hematology & Oncology [address] [id number] 05/04/2024 12:00 EST Appointment [facility] Hematology & Oncology [address] [address] 06/12/2024 13:00 EST Appointment [facility] Radiology CT - [address] [phone] documented as of this encounter Visit Diagnoses Diagnosis Osteopenia of necks of both femurs- Primary documented in this encounter Orders Medications Ordered That Vj ht Not Have Been Administered Count Last Ordered Date First Ordered Date diphenhydrAMINE (BENADRYL) injection 50 mg 1 02/28/2023 EPINEPHrine (ADRENALIN) injection 0.3 mg 1 02/28/2023 methylPREDNISolone sod suc(P F) (SOLU-MEDROL) injection 40 mg 1 02/28/2023 sodium chloride 0.9 % (flush) flush 20 mL 1 02/28/2023 sodium chloride 0.9 % (NS) infusion 1 02/28 zoledronic acid (ZOMETA) 4 m g/100 mL IVPB 4 mg 1 02/28/2023 Nursing Count Last Ordered Date First Orde red Date INFORMED CONSENT 1 02/28/2023 documented in this encounter Care Teams Guidance Counselor Relationship Specialty Start Date End Date Linda Blancas MD [facility] [address] [place] [address] PCP - General 01/06/11 Adolfo Carreno MD [address] [place] [address] [phone] General Surgery 04/26/19 Augustina Colin MD PhD [address] [place] [phone] Medical Oncology 04/26/19 documented as of this encounter
--- OUTSIDE RECORDS SUMMARY | 2024-03-20 14:45 | XMS_ITS | Encounter Summary ---
Author Organization [facility] Address [address] [place] [address] Care Team Providers Care Payroll Auditor Name Role Phone Linda Blancas MD Primary Care Provider [phone] Adolfo Carreno MD Unavailable [phone] Augustina Colin MD PhD Unavailable Unavailable Encounter Details Date Type Department Care Team (Late st Contact Info) Description 01/26/2023 Specialty Pharmacy [facility] - [facility] [address] [place] [address] Allen Day, [facility] Social History Tobacco Use Types Packs/Day Years [...] Appointment [facility] Interventional Radiology Unit [address] [place] [address] [phone] 04/02/2024 15:15 EDT Office Visit [facility] Surgical Oncology - [address] 780321 Adolfo Carreno MD [address] [place] [address] [phone] 04/05/2024 9:30 EDT Telemedicine [facility] - [facility] Palliative Care Services [address] [place] [address] [phone] Chichi Woods MD [address] [place] [address] [phone] 04/11/2024 15:00 EDT Telemedicine [facility] Hematology & Oncology [address] [phone] Alisson Carreon MD [address] [place] [address] [phone] 04/13/2024 13:30 EDT Appointment [facility] Hematology & Oncology [address] [id number] 04/13/2024 14:00 EDT Appointment [facility] Hematology & Oncology [address] [phone] 04/16/2024 10:00 EST Telemedicine [facility] - [facility] Palliative Care Services [address] [place] [address] [phone] Chichi Woods MD [address] [place] [address], [address] [place] [phone] 04/24/2024 9:00 EST Appointment [facility] Radiology CT Outpatient - [address] [id number] 04/24/2024 11:00 EST Appointment [facility] Breast Imaging - [facility] [address] [place] [address] [place], [place] 365801 04/27/2024 12:00 EST Appointment [facility] Hematology & Oncology - [address] [id number] 05/02/2024 15:00 EST Telemedicine [facility] Hematology & Oncology - [address] [phone] Alisson Carreon MD [address] [place] [address], Level [address] [place] [phone] 05/04/2024 10:15 EST Ancillary Procedure [facility] Cardiology - [address] [place], [place] [phone] 05/04/2024 11:30 EST Appointment [facility] Hematology & Oncology - [address] [id number] 05/04/2024 12:00 EST Appointment [facility] Hematology & Oncology [address] [phone] 06/12/2024 13:00 EST Appointment [facility] Radiology CT - [address] [phone] documented as of this encounter Visit Diagnoses Not on filedocumented in this encounter Care Teams Payroll Auditor Relationship Specialty Start Date End Date Linda Blancas MD [facility] [address] [place] [address] PCP - General 01/06/11 Adolfo Carreno MD [address] [place] [address], [facility] [address] [place] [phone] General Surgery 04/26/19 Augustina Colin MD PhD [address] [place] [address], [address] [phone] Medical Oncology 04/26/19 documented as of this encounter
--- OUTSIDE RECORDS SUMMARY | 2024-03-20 14:45 | XMS_ITS | Encounter Summary ---
Author Organization [facility] Address [address] [place] [address] Care Team Providers Care Bug Trimmer Name Role Phone Linda Blancas MD Primary Care Provider [phone] Adolfo Carreno MD Unavailable [phone] Augustina Colin MD PhD Unavailable Unavailable Reason for Referral * Consult (Routine/Next Available) - Closed Specialty Diagnoses / Procedures Referred By Contac t Referred To Contact Hematology and Oncology Diagnoses Malignant neoplasm of right female breast, unspecified estrogen receptor status, unspecified site of breast ([facility]) Augustina Colin MD PhD [facility] Ep2 Hem/Onc [address] [place] [address] Referral ID Status Reason Start Date Expiration Date V isits Requested Visits Authorized [id number] Closed Specialty Services Required 03/01/2023 1 1 Comments Patient with metastatic breast cancer. Also dealing with her husbands distress * Radiology Services (Routine/Next Available) - Authorization Not Required Specialty Diagnoses / Procedures Referred By Contac t Referred To Contact Nuclear Medicine Diagnoses Malignant neoplasm of right female breast, unspecified estrogen receptor status, unspecified site of breast ([facility]) Procedures NM BONE WHOLE BODY Augustina Colin MD PhD [facility] Referral ID Status Reason Start Date Expiration Date Visits Requested Visits Authorized [id number] Authorization Not Required 03/01/2023 1 2 Reason for Visit * Reason Comments Follow-up Encounter Details Date Type Department Care Team (Late st Contact Info) Description 03/01/2023 10:00 EDT Telemedicine [facility] Hematology & Oncology - [address] [address] Augustina Colin MD PhD Malignant neoplasm of [...] Notes * Augustina Colin MD PhD - 03/01/2023 1000 EDT REASON FOR OFFICE VISIT: ??Discussion of side effects related to anti estrogen therapy and scan results ?? The concept of ???Telemedicine?? has been described [...] or mental health care. PROBLEM LIST: 1. 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 a. ??[place] in [place]??identifying an irregular heterogeneous soft tissue mass measuring 1.2 x 1.2 x 1.5 cm. ?? 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 ??HER-2 1+ by IHC. ??ANNE MARIE revealed a HER2 to chromosome 17 ratio of 1.3 and was nonamplified. ?? c. ??Staging scans: ??MRI head negative; CT scan of the chest identified numerous scattered bilateral nodules throughout the lungs, the largest measuring 4 mm. ??The soft tissue mass was identified near the right breast implant; Enlarged mediastinal lymph nodes. ??A CT scan of the abdomen and nuclear bone scan were without evidence of malignancy. d. ??Biopsy of mediastinal lymph node consistent with adenocarcinoma,??breast origin e. ??Letrozole initiated October 2016 and palbociclib initiated November 2016. ??Palbociclib with dose reduction due to mouth sores. ??Discontinued palbociclib Mar 2018 ??f. Excision of right breast tumor 07/07/17 and placement of tissue television tube inspector. ??1.9 cm tumor at time of surgery, well differentiated, with LVI present, and negative [...] ESR1 E380Q mutation (no PIK3CA mutation) 2. ??Restaging scans: ?? - MRI Abdomen 02/28/23 - results pending at time of appointment. - CT Chest 11/26/21 - Stable to minimally decreased size [...] in size of the right iliac lesion. ?? 3. 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 ??This DCIS was nuclear grade 2, per report 2.7 cm in greatest dimension a. ??Right total mastectomy and implant reconstruction. ??She had augmentation done with the left breast. ??A positive margin was present. ??No additional surgery could be offered because of the location of the margin b. Declined radiation and??tamoxifen. 4. 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 ?? 5. ??Gynecologic history: postmenopausal, having had premature ovarian failure at age 38. ??She is . ??She has a paternal aunt who had breast cancer in her 30s. ??Hormone replacement therapy for about 5 years after the premature ovarian failure and discontinued it at the time of DCIS??diagnosis. 6. ??Bone Density - 03/03/21 normal bone density of spine and near osteopenia hips A.?Zoledronic acid initiated May 2019; Provided every 6mo as she does not have clear evidence of bone metastasis 7. ??Other chronic health issues: ??gastroesophageal reflux disease, COVID positive with hospitalization June 2020 ?? SUBJECTIVE: ??Ms Morales presents to clinic to discuss effects related to capecitabine and scan results. The MR abdomen from yesterday results are not yet available. She meets with Dr Moya tomorrow. She has been on capecitabine for over a year. Currently it is Capecitabine 1500mg am 1500mg pm one week on one week off. She has some hand/foot redness minimal cracking. No diarrhea ROS: A 10 point review of systems was obtained. Other than described in the subjective she has no concerns or issues. Medications Prior to Today's Visit Medication Sig ??? calcium-vitamin D (OS-CHAR D) 500 mg(1,250mg) -200 unit per tablet Take 1 Tablet by mouth 2 times daily with breakfast and dinner. ??? capecitabine (XELODA) 500 mg tablet Take 3 Tablets by mouth every 12 hours. one week on, one week off ??? gabapentin (NEURONTIN) 100 mg capsule Take 2 Caps by mouth 2 times daily. (Patient taking differently: Take 6 Capsules by mouth 2 times daily.) ??? ibuprofen (MOTRIN) 200 mg tablet Take 2 Tablets by mouth as needed. ??? MULTIVITS W-CA,FE,OTHER MIN (WOMEN'S DAILY FORMULA ORAL) Take by mouth daily. ??? mv-mn/C/glutamin/lysin/odkf483 (AIRBORNE, ASCORBATE SODIUM, ORAL) Take by mouth as needed. ??? omeprazole (PRILOSEC) 20 mg capsule Take 1 Capsule by mouth daily. ??? ondansetron (ZOFRAN-ODT) 8 mg disintegrating tablet Take 1 Tablet by mouth every 8 hours as needed for Nausea. ??? prasterone, dhea, (INTRAROSA) 6.[address] 6.5 mg vaginally daily. (Patient not taking: Reported on 11/25/2022) ??? RED YEAST RICE EXTRACT ORAL Take 1,200 mg by mouth daily. 600mg 2x a day ??? valACYclovir (VALTREX) 500 mg tablet Take 1 Tab by mouth daily. ??? venlafaxine (EFFEXOR-XR) 150 mg XR capsule Take 1 Cap by mouth daily. Facility-Administered Medications Prior to Visit Medication ??? sodium chloride 0.9 % (flush) flush 20 mL Social History Tobacco Use ??? Smoking status: Never ??? Smokeless tobacco: Never Substance Use Topics ??? Alcohol use: Yes [...] with results is: Hospital Outpatient Visit on 11/25/2022 Component Date Value Ref Range Status ? ? CA 27.29 11/25/2022 94.7 (H) <38.0 U/mL Final NOTE: Serum CA 27.29 concentration should not be interpreted as absolute evidence for the presence or absence of malignant disease. Assayed on [employer] XPT using chemiluminescent technology. ??Values obtained by using different assay methods cannot be used interchangeably. ??? 25OH Vitamin D Tot 11/25/2022 104 (H) 30 - 100 ng/mL Final Vitamin D 25,OH Interpretive Ranges: Deficiency: <10.0 ng/mL Insufficiency: 10.0 - 30.0 ng/mL Sufficiency: 30.0 - 100.0 ng/mL Toxicity: >100.0 ng/mL ??? WBC 11/25/2022 5.06 4.00 - 12.40 K/cmm Final ??? RBC 11/25/2022 3.68 (L) 3.86 - 5.04 M/cmm Final ??? Hemoglobin 11/25/2022 13.6 11.6 - 15.2 g/dL Final ??? HCT 11/25/2022 39.0 34.9 - 44.4 % Final ??? MCV 11/25/2022 106 (H) 81 - 98 fL Final ??? MCH 11/25/2022 37.0 (H) 26.7 - 33.3 pg Final ??? MCHC 11/25/2022 34.9 32.1 - 35.9 g/dL Final ? ? RDW-CV 11/25/2022 16.8 (H) <14.7 % Final ? ? RDW-SD 11/25/2022 66.3 (H) <50.4 fl Final ??? PLT 11/25/2022 153 141 - 377 K/cmm Final ??? MPV 11/25/2022 10.3 9.5 - 12.7 fL Final ??? % Neutrophils 11/25/2022 61.4 % Final ??? % Lymphocytes 11/25/2022 25.7 % Final ??? % Monocytes 11/25/2022 9.7 % Final ??? % Eosinophils 11/25/2022 2.2 % Final ??? % Basophils 11/25/2022 0.8 % Final ??? % Immature Grans 11/25/2022 0.2 % Final ??? Absolute Neutrophils 11/25/2022 3.11 2.20 - 8.85 K/cmm Final ??? Absolute Lymphocytes 11/25/2022 1.30 1.09 - 3.30 K/cmm Final ??? Absolute Monocytes 11/25/2022 0.49 0.10 - 0.80 K/cmm Final ??? Absolute Eosinophils 11/25/2022 0.11 0.03 - 0.61 K/cmm Final ??? ABS Basophils 11/25/2022 0.04 0.01 - 0.11 K/cmm Final ??? Absolute Immature Grans 11/25/2022 0.01 0.00 - 0.06 K/cmm Final ??? Type of Differential: 11/25/2022 Auto Final ??? Sodium 11/25/2022 142 136 - 145 mmol/L Final ??? Potassium 11/25/2022 3.9 3.5 - 5.0 mmol/L Final ??? Chloride 11/25/2022 108 96 - 110 mmol/L Final ??? CO2 Total 11/25/2022 19 (L) 22 - 32 mmol/L Final ??? Glucose 11/25/2022 126 (H) 70 - 100 mg/dl Final ??? BUN 11/25/2022 20 10 - 26 mg/dL Final ??? Creatinine 11/25/2022 0.69 0.52 - 1.04 mg/dL Final ? ? eGFR 11/25/2022 99 >60 mL/min/1.73m2 Final ??? Total Protein 11/25/2022 6.9 6.3 - 8.2 g/dL Final ??? Albumin 11/25/2022 3.8 3.4 - 4.9 g/dL Final ??? Alkaline Phosphatase 11/25/2022 190 (H) 38 - 126 U/L Final ??? AST 11/25/2022 60 (H) 15 - 46 U/L Final ? ? ALT 11/25/2022 33 <35 U/L Final ? ? Bilirubin, Total 11/25/2022 1.1 <1.4 mg/dL Final ??? Calcium 11/25/2022 9.2 8.5 - 10.5 mg/dL Final ??? Albumin/Globulin Ratio 11/25/2022 1.2 1.0 - 2.5 Final ??? Anion Gap 11/25/2022 15 (H) 5 - 14 mmol/L Final ASSESSMENT: ??Ms Bernstein is a 62-year-old female with metastatic breast cancer.?? She is receiving capecitabine 1500mg am and 1500mg pm 1 week on 1 week off. She tolerates this dose. We recommended continuing urea cream and adding diclofenac Results are still pending from the MR abdomen from yesterday. She will meet with Dr Moya tomorrow. Zolendronic acid to every 3 mos for now. She takes a vitamin D supplement. PLAN: 1. Capecitabine 1500mg am and 1500mg pm and then increase to 1500mg BID December 20. One week on and one week off 2. Zoledronic acid q 3mo, next due May 2023; Continued Vit D supplementation 3. Next MR abdomen per Dr Moya's recommendations. Nuclear bone scan and CT chest May 27. Will move it up is progression is noted in the liver 4. Continued follow-up with Dr. Moya who she will see tomorrow. 5. Referral to counseling 6. FUR 3mos after scans TELEMEDICINE VIDEO VISIT Today's visit was provided through telemedicine video conferencing: I have reviewed the appropriateness of using video technology with the patient with regards to today's visit. The location of the patient : Home Patient location state: Visit Location State: [place] The location of the provider: Office Provider location state: Visit Location State: [place] The following people and their roles were present for today's visit: Appointment Provider: Augustina Colin MD PhD Augustina Colin MD PhD documented in this encounter Plan of Treatment Upcoming Encounters Date Type Department Care Team (Late st Contact Info) Description 04/02/2024 10:30 EDT Appointment [facility] Interventional Radiology Unit [address] [place] [address] [phone] 04/02/2024 15:15 EDT Office Visit [facility] Surgical Oncology - [address] [phone] Adolfo Carreno MD [address] [place] [address] [phone] 04/05/2024 9:30 EDT Telemedicine [facility] Palliative Care Services [address] [place] [address] [phone] Chichi Woods MD [address] [place] [address] [phone] 04/11/2024 15:00 EDT Telemedicine [facility] Hematology & Oncology - [address] [phone] Alisson Carreon MD [address] [place] [address] [phone] 04/13/2024 13:30 EDT Appointment [facility] Hematology & Oncology [address] [phone] 04/13/2024 14:00 EDT Appointment [facility] Hematology & Oncology [address] [phone] 04/16/2024 10:00 EST Telemedicine [facility] Palliative Care Services [address] [place] [address] [phone] Chichi Woods MD [address] [place] [address] [phone] 04/24/2024 9:00 EST Appointment [facility] Radiology CT Outpatient - [address] [id number] 04/24/2024 11:00 EST Appointment [facility] Breast Imaging - [facility] [address] [address] 04/27/2024 12:00 EST Appointment [facility] Hematology & Oncology - [address] [phone] 05/02/2024 15:00 EST Telemedicine [facility] Hematology & Oncology [address] [phone] Alisson Carreon MD [address] [place] [address], Level 2 [place] [phone] 05/04/2024 10:15 EST Ancillary Procedure [facility] Cardiology - [address] [place] [address] 05/04/2024 11:30 EST Appointment [facility] Hematology & Oncology [address] [phone] 05/04/2024 12:00 EST Appointment [facility] Hematology & Oncology [address] [phone] 06/12/2024 13:00 EST Appointment [facility] Radiology CT - [address] [phone] Scheduled Referrals Name Type Priority Associated Diagnoses Order Schedule AMB COUNSELING SERVICES Outpatient Referral Routine/Next Available Malignant neoplasm of right female breast, unspecified estrogen receptor status, unspecified site of breast ([facility]) Expected: 03/08/2023 (Approximate), Expires: 03/01/2024 documented as of this encounter Results * [...] above interpretation and agree with the findings. [id number] Narrative 06/21/2023 16:53 EST NM BONE WHOLE BODY ??06/21/2023 3:00 PM Signs and Symptoms: ??pt w/ metastatic breast cancer; Breast cancer, invasive, stage IV, pre-therapy or re-staging; pt w/ metastatic breast cancer;C50.911:Malignant neoplasm of right female breast, unspecified estrogen receptor status, unspecified site of breast ([facility]) Comparison: X-ray chest 06/16/2023, CT chest [...] unspecifiedestrogen receptor status, unspecified site of breast (HCC-CMS) [...] increased radiotracer uptake at the junctional zone L1-[id number] to severe discogenic endplate disease. Focus of [...] the above interpretation andagree with the findings. [id number] Augustina Colin MD PhD IMG NM ORDERABLES documented in this encounter Visit Diagnoses Diagnosis Malignant neoplasm of right female breast, unspecified estrogen receptor status, unspecified site of breast (HCC-CMS)- Primary Malignant neoplasm of right female breast, unspecified estrogen receptor status, unspecified site of breast (HCC-CMS) documented in this encounter Care Teams Bug Trimmer Relationship Specialty Start Date End Date Linda Blancas MD [facility] [address] [place] [address] PCP - General 01/06/11 Adolfo Carreno MD [address] [place] [address] [phone] General Surgery 04/26/19 Augustina Colin MD PhD [address] [place] [phone] Medical Oncology 04/26/19 documented as of this encounter
--- OUTSIDE RECORDS SUMMARY | 2024-03-20 14:45 | XMS_ITS | Encounter Summary ---
Author Organization [facility] Address [address] [place] [address] Care Team Providers Care Compressed Gas Plant Worker Name Role Phone Linda Blancas MD Primary Care Provider [phone] Adolfo Carreno MD Unavailable [phone] Augustina Colin MD PhD Unavailable Unavailable Reason for Visit * Reason Onset Date Comments Appointment Related 01/04/2023 Encounter Details Date Type Department Care Team (Late st Contact Info) Description 01/04/2023 Telephone [facility] Cancer Center Hematology & Oncology - Main [place] [address], [place] [id number] Augustina Colin, PhD Appointment Related Social History [...] * Telephone Encounter - Sandhya Estrada - 01/04/2023 1138 EDT Called patient regardin 03/01 appt w/KD. Offered to make it an in-person appt if patient preferred. Otherwise KD will see patient via ZOOM. LMOM.Left PAC# documented in this encounter Plan of Treatment Upcoming Encounters Date Type Department Care Team (Late st Contact Info) Description 04/02/2024 10:30 EDT Appointment [facility] Interventional Radiology Unit [address] [place] [address] [phone] 04/02/2024 15:15 EDT Office Visit [facility] Surgical Oncology - [address] [phone] Adolfo Carreno MD [address] [place] [address] [phone] 04/05/2024 9:30 EDT Telemedicine [facility] - [facility] Palliative Care Services [address] [place] [address] [phone] Chichi Woods MD [address] [place] [address], [address] [phone] 04/11/2024 15:00 EDT Telemedicine [facility] Hematology & Oncology - [address] 057751 Alisson Carreon MD [address] [place] [address] 2 [place] [phone] 04/13/2024 13:30 EDT Appointment [facility] Hematology & Oncology [address] [phone] 04/13/2024 14:00 EDT Appointment [facility] Hematology & Oncology [address] [address] 04/16/2024 10:00 EST Telemedicine [facility] - [facility] Palliative Care Services [address] [place] [address] [phone] Chichi Woods MD [address] [place] [address], [address] [phone] 04/24/2024 9:00 EST Appointment [facility] Radiology CT Outpatient - [address] 055331 04/24/2024 11:00 EST Appointment [facility] Breast Imaging - [facility] [address] 6[address] 04/27/2024 12:00 EST Appointment [facility] Hematology & Oncology [address] [phone] 05/02/2024 15:00 EST Telemedicine [facility] Hematology & Oncology - [address] [address] Alisson Carreon MD [address] [place] [address], [facility] 2 [place] [phone] 05/04/2024 10:15 EST Ancillary Procedure [facility] Cardiology [place] [address] 05/04/2024 11:30 EST Appointment [facility] Hematology & Oncology [address] 925901 [phone] 05/04/2024 12:00 EST Appointment [facility] Cancer Center Hematology & Oncology - [address] [address] 06/12/2024 13:00 EST [facility]ointment [facility] Radiology CT - [address] [address] documented as of this encounter Visit Diagnoses Not on filedocumented in this encounter Care Teams Compressed Gas Plant Worker Relationship Specialty Start Date End Date Linda Blancas MD [facility] [address] [place] [address] PCP - General 01/06/11 Adolfo Carreno MD [address] [place] [address], [facility] 2 [place] [phone] General Surgery 04/26/19 Augustina Colin MD PhD [address] [place] [address] 2 [place] [phone] Medical Oncology 04/26/19 documented as of this encounter
--- OUTSIDE RECORDS SUMMARY | 2024-03-20 14:45 | XMS_ITS | Encounter Summary ---
Author Organization [facility] Address [address] [place] [address] Care Team Providers Care Campaign Fundraiser Name Role Phone Linda Blancas MD Primary Care Provider [phone] Adolfo Carreno MD Unavailable [phone] Augustina Colin MD PhD Unavailable Unavailable Reason for Visit * Reason Onset Date Comments Coordination Of Care 03/03/2023 Encounter Details Date Type Department Care Team (Late st Contact Info) Description 03/03/2023 Telephone [facility] [address], [place] [phone] Augustina Colin, PhD Coordination Of Care Social History Tobacco Use [...] Telephone Encounter - Bladimir Lamas RN - 03/10/2023 0934 EDT Requested most recent lab results from 02/24/[address] Colin notified and already aware ofthe result from televideo visit with patient on 03/01/2023. No further orders received at this time.Sent to medical records to be scanned into the patient's chart at this time.---SHELLEY Quick 03/10/2023 at 09:33. * Telephone Encounter - Bladimir Lamas RN - 03/07/2023 1529 EDT No records received for most recent labs at this time. Called and Radha, [facility] Medical Records (ph: [phone] ext [phone]) requesting most recent lab results. Verbalized understanding and stated patient had labs done on 02/24/2023 and will fax ATTN: Dr. Colin, fax: [phone]. Awaitingfax from [facility] Medical Records at this time.---SHELLEY Quick 03/07/2023 at 15:30. * Telephone Encounter - Lulu Mcgovern - 03/03/2023 1136 EDT Radha is calling to see if everything has been sent over for patient. Please follow up if needed. documented in this encounter Plan of Treatment Upcoming Encounters Date Type Department Care Team (Late st Contact Info) Description 04/02/2024 10:30 EDT Appointment [facility] Interventional Radiology Unit [address] [place] [address] [phone] 04/02/2024 15:15 EDT Office Visit [facility] Surgical Oncology - [address] 985221 Adolfo Carreno MD [address] [place] [address] [phone] 04/05/2024 9:30 EDT Telemedicine [facility] [address] [place] [address] [phone] Chichi Woods MD [address] [place] [address] [phone] 04/11/2024 15:00 EDT Telemedicine [facility] Hematology & Oncology [address] [phone] Alisson Carreon MD [address] [place] [address] [phone] 04/13/2024 13:30 EDT Appointment [facility] Hematology & Oncology [address] 818131 04/13/2024 14:00 EDT Appointment [facility] Hematology & Oncology [address] [phone] 04/16/2024 10:00 EST Telemedicine [facility] [address] [place] [address] [phone] Chichi Woods MD [address] [place] [address] [phone] 04/24/2024 9:00 EST Appointment [facility] Radiology CT Outpatient - [address] [address] 04/24/2024 11:00 EST Appointment [facility] Breast Imaging - [facility] [address] [place] [address] [place] [address] 04/27/2024 12:00 EST Appointment [facility] Hematology & Oncology - [address] [address] 05/02/2024 15:00 EST Telemedicine [facility] Hematology & Oncology - [address] [phone] Alisson Carreon MD [address] [place] [address] 2 [place] [phone] 05/04/2024 10:15 EST Ancillary Procedure [facility] Cardiology - [address] [place] [address] 05/04/2024 11:30 EST Appointment [facility] Hematology & Oncology - [address] [address] 05/04/2024 12:00 EST Appointment [facility] Hematology & Oncology - [address] 827181 06/12/2024 13:00 EST Appointment [facility] Radiology CT - [address] 085381 documented as of this encounter Visit Diagnoses Not on filedocumented in this encounter Care Teams Campaign Fundraiser Relationship Specialty Start Date End Date Linda Blancas MD [facility] [address] [place] [address] PCP - General 01/06/11 Adolfo Carreno MD [address] [place] [address] 2 [place] [phone] General Surgery 04/26/19 Augustina Colin MD PhD [address] [place] [phone] Medical Oncology 04/26/19 documented as of this encounter
--- OUTSIDE RECORDS SUMMARY | 2024-03-20 14:45 | XMS_ITS | Encounter Summary ---
Author Organization [facility] Address [address] [place] [address] Care Team Providers Care Design Engineering Specialist Name Role Phone Linda Blancas MD Primary Care Provider [phone] Adolfo Carreno MD Unavailable [phone] Augustina Colin MD PhD Unavailable Unavailable Reason for Referral * Radiology Services (Routine/Next Available) - Authorized Specialty Diagnoses / Procedures Referred By Contac t Referred To Contact Radiology Diagnoses Metastases to the liver (HCC-CMS) Procedures MR ABDOMEN W David Joseph MD [address] [place] [phone] [facility] Referral ID Status Reason Start Date Expiration Date V isits Requested Visits Authorized [id number] Authorized 02/23/2023 08/22/2023 1 1 Reason for Visit * Radiology Services (Routine/Next Available) - Authorized Specialty Diagnoses / Procedures Referred By Contdayanna t Referred To Contact Radiology Diagnoses Metastases to the liver (HCC-CMS) Procedures MR ABDOMEN W David Joseph MD [address] [place] [phone] [facility] Referral ID Status Reason Start Date Expiration Date V isits Requested Visits Authorized [id number] Authorized 02/23/2023 08/22/2023 1 1 Encounter Details Date Type Department Care Team (Latest Contact Info) Description 02/28/2023 15:39 EDT - 02/28/2023 23:59 EDT Hospital Encounter Malorie Mcknight [facility] [address] [place] [address] Metastases to the liver (HCC-CMS) Discharge Disposition: [...] Tablets by mouth as needed. 12/07/2023 mv-mn/C/glutamin/lysin/h fol100 (AIRBORNE, ASCORBATE SODIUM, ORAL) Take by mouth [...] [facility] [address] [place] [address] 04/02/2024 15:15 EDT Office Visit [facility] Surgical Oncology - [facility] [address] [place] [address] Adolfo Carreno MD 111 [facility] [place], Level [address] [place] [phone] 04/05/2024 9:30 EDT Telemedicine [facility] Palliative Care Services [address] [place] [address] Chichi Woods MD 111 [facility], [address] [phone] 04/11/2024 15:00 EDT Telemedicine [facility] Hematology & Oncology - [address] [phone] Alisson Carreon MD [address] [place] [address] 2 [place] [phone] 04/13/2024 13:30 EDT Appointment [facility] Hematology & Oncology - [address] [phone] 04/13/2024 14:00 EDT Appointment [facility] Hematology & Oncology [address] [phone] 04/16/2024 10:00 EST Telemedicine [facility] - [facility] Palliative Care Services [address] [place] [address] [phone] Chichi Woods MD [address] [place] [address], [place] [address] [place] [phone] 04/24/2024 9:00 EST Appointment [facility] Radiology CT Outpatient - [address] [phone] 04/24/2024 11:00 EST Appointment [facility] Breast Imaging - [address] 899461 04/27/2024 12:00 EST Appointment [facility] Hematology & Oncology - [address] [phone] 05/02/2024 15:00 EST Telemedicine [facility] Hematology & Oncology - [address] [phone] Alisson Carreon MD [address] [place] [address], [facility] 2 [place] [phone] 05/04/2024 10:15 EST Ancillary Procedure [facility] Cardiology - [address] [place] [address] 05/04/2024 11:30 EST Appointment [facility] Hematology & Oncology [address] 564781 05/04/2024 12:00 EST Appointment [facility] Hematology & Oncology [address] [phone] 06/12/2024 13:00 EST Appointment [facility] Radiology CT [address] [phone] documented as of this encounter Procedures Procedure Name Priority Date/Time Associated Diagnosis Comments MR ABDOMEN W WO CONTRAST Routine 02/28/2023 16:23 EDT Metastases to the liver (HCC-CMS) documented in this encounter Results * MR ABDOMEN W WO CONTRAST (02/28/2023 16:23 EDT) Anatomical Region Laterality Modality Body, Abdomen Magnetic Resonan ce 03/01/2023 16:5 3 EDT Impressions 03/01/2023 16:53 EDT 1. ??Progression of hepatic metastases with interval increase in size of the previously described right lobe lesion and at least 3 new lesions, both hepatic lobes ??. 2. ??Cholelithiasis. I have personally reviewed the images and the above interpretation and agree with the findings. [id number] Narrative 03/01/2023 16:53 EDT MR ABDOMEN W WO CONTRAST ??02/28/2023 4:15 PM Signs and Symptoms/Comments: Breast cancer liver mets s/p Y90; Breast cancer liver mets s/p Y90;C78.7:Metastases to the liver (HCC-CMS) Technique: MR sequences of the abdomen were performed with and without IV contrast. . Comparison: Multiple MRs abdomen, most recently 11/16/2022; nuclear liver SPECT CTs 05/13/2022 and 05/14/2022 Findings: Lower chest: No significant finding. Bilateral breast implants partially included Liver: Heterogeneous geographic areas of T2 hyperintensity and postcontrast enhancement related to treatment changes/scarring. Increased size of a targetoid lesion periphery right lobe which now measures 1.5 cm, previously 0.7 cm. The lesion demonstrates peripheral restricted diffusion, hypoenhancing (portal venous #203, B800 #168). There are at least 3 new enhancing hepatic parenchyma lesions: --Central right lobe lesion measuring 1.6 cm, peripherally enhances, hepatic arterial #132, B800 #108. Also visible on axial T2 fat-sat #11. --Anterior left lobe, 0.7 cm B800 #72, faint ring enhancement portal venous #98, axial T2 fat-sat #8 - Lateral peripherally left lobe lesion measuring 0.5 cm (axial dynamic postcontrast image #171, B800 #144) Gallbladder: There is layering cholelithiasis. No pericholecystic fluid. Bile ducts: No biliary ductal dilatation. Spleen: No focal splenic lesion. Upper limits normal in size. Pancreas: No peripancreatic fat stranding or pancreatic ductal dilatation. Adrenal glands: No adrenal nodule. Kidneys, ureters: Kidneys enhance symmetrically. No concerning renal lesion. No hydronephrosis. The imaged portions of the ureters are normal caliber and course. Bowel: No acute inflammatory changes or bowel obstruction. Peritoneal cavity: Trace perihepatic ascites. Lymph nodes: No pathologically enlarged lymph nodes. Vascular: The abdominal aorta is normal caliber. Abdominal wall: No bowel-containing hernia. Musculoskeletal: Partially imaged lumbar spinal fusion. Discogenic changes at L1-2. Localizer: No additional findings. Procedure Note Pavan Ceron MD - 03/01/2023 MR ABDOMEN W WO CONTRAST 02/28/2023 4:15 PM Signs and Symptoms/Comments: Breast cancer liver mets s/p Y90; Breastcancer liver mets s/p Y90;C78.7:Metastases to the liver (HCC-CMS) Technique: MR sequences of the abdomen were performed with and without IVcontrast. . Comparison: Multiple MRs abdomen, most recently 11/16/2022; nuclear liverSPECT CTs 05/13/2022 and 05/14/2022 Findings: Lower chest: No significant finding. Bilateral breast implants partiallyincluded Liver: Heterogeneous geographic areas of T2 hyperintensity andpostcontrast enhancement related to treatment changes/scarring. Increased size of a targetoid lesion periphery right lobe which nowmeasures 1.5 cm, previously 0.7 cm. The lesion demonstrates peripheralrestricted diffusion, hypoenhancing (portal venous #203, B800 #168). There are at least 3 new enhancing hepatic parenchyma lesions: --Central right lobe lesion measuring 1.6 cm, peripherally enhances,hepatic arterial #132, B800 #108. Also visible on axial T2 fat-sat #11. --Anterior left lobe, 0.7 cm B800 #72, faint ring enhancement portalvenous #98, axial T2 fat-sat #8 - Lateral peripherally left lobe lesion measuring 0.5 cm (axial dynamicpostcontrast image #171, B800 #144) Gallbladder: There is layering cholelithiasis. No pericholecystic fluid. Bile ducts: No biliary ductal dilatation. Spleen: No focal splenic lesion. Upper limits normal in size. Pancreas: No peripancreatic fat stranding or pancreatic ductaldilatation. Adrenal glands: No adrenal nodule. Kidneys, ureters: Kidneys enhance symmetrically. No concerning renallesion. No hydronephrosis. The imaged portions of the ureters are normalcaliber and course. Bowel: No acute inflammatory changes or bowel obstruction. Peritoneal cavity: Trace perihepatic ascites. Lymph nodes: No pathologically enlarged lymph nodes. Vascular: The abdominal aorta is normal caliber. Abdominal wall: No bowel-containing hernia. Musculoskeletal: Partially imaged lumbar spinal fusion. Discogenic changesat L1- 2. Localizer: No additional findings. IMPRESSION 1. Progression of hepatic metastases with interval increase in size ofthe previously described right lobe lesion and at least 3 new lesions,both hepatic lobes . 2. Cholelithiasis. I have personally reviewed the images and the above interpretation andagree with the findings. [id number] David Moya MD IMG MRI JAIMEE KARLA documented in this encounter Visit Diagnoses Diagnosis Metastases to the liver (HCC-CMS) Secondary malignant neoplasm of liver documented in this encounter Administered Medications Inactive Administered Medications - up to 3 most recent administrations Medication Order MAR Action Action Date Dose Rate Site gadoterate meglumine solution 1-30 mL 1-30 mL, intravenous, Once in imaging, 1 dose, Starting on Tue02/28/23 at 1623, Until 02/28/23 at 1623, Routine, Imaging Protocol Orders Given 02/28/2023 16:23 EDT 12 mL documented in this encounter Orders Medications Ordered That Vj ht Not Have Been Administered Count Last Ordered Date First Ordered Date gadoterate meglumine solution 1-30 mL 1 documented in this encounter Care Teams Design Engineering Specialist Relationship Specialty Start Date End Date Linda Blancas MD [facility] [address] [place] [address] PCP - General 01/06/11 Adolfo Carreno MD [address] [place] [phone] General Surgery 04/26/19 Augustina Colin MD PhD [address] [place] [phone] Medical Oncology 04/26/19 documented as of this encounter
--- OUTSIDE RECORDS SUMMARY | 2024-03-20 14:45 | XMS_ITS | Encounter Summary ---
Author Organization [facility] Address [address] [place] [address] Care Team Providers Care Vocational Rehabilitation Counselor Name Role Phone Linda Blancas MD Primary Care Provider [phone] Adolfo Carreno MD Unavailable [phone] Augustina Colin MD PhD Unavailable Unavailable Reason for Referral * Consult (Routine/Next Available) - Authorization Not Required Specialty Diagnoses / Procedures Referred By [facility] t Referred To Contact Pharmacy Diagnoses Malignant neoplasm of right female breast, unspecified estrogen receptor status, unspecified site of breast (HCC-CMS) Metastasis to bone ([facility]) Augustina Colin MD PhD [facility] [address] [place] [id number] Referral ID Status Reason Start Date Expiration Date Visits Requested Visits Authorized [id number] Authorization Not Required Specialty Services Required 12/15/2022 1 1 Question Answer PA Type: New Medication to be Prior Authorized: DOSE INCREASE: Capecitabine 1500 mg bid. Comments The purpose of this request is to inform precertification staff that the requested service needs to be reviewed for prior-authorization. Encounter Details Date Type Department Care Team (Late st Contact Info) Description 12/15/2022 Orders Only [facility] Cancer Center Hematology & Oncology - Main [address] [address] Garima Boyce, RN Malignant neoplasm of right female breast, unspecified estrogen receptor status, unspecified site of breast ([facility]) (Primary Dx); Metastasis to bone ([facility]) Social History Tobacco Use Types Packs/Day [...] Info) Description 04/02/2024 10:30 EDT Appointment [facility] Interventional Radiology Unit [address] [place], [place] [phone] 04/02/2024 15:15 EDT Office Visit [facility] Surgical Oncology - [facility] [address] [place], [place] 107991 Adolfo Carreno MD 111 [facility] 2 [place] [phone] 04/05/2024 9:30 EDT Telemedicine [facility] - [facility] Palliative Care Services [address] [place], [place] 225461 Chichi Woods MD [address] [place] [address] [address] [place] [phone] 04/11/2024 15:00 EDT Telemedicine [facility] Hematology & Oncology - [address] 747101 Alisson Carreon MD [address] [place] [address], Level [address] [place] [phone] 04/13/2024 13:30 EDT Appointment [facility] Hematology & Oncology [address] 962161 04/13/2024 14:00 EDT Appointment [facility] Hematology & Oncology [address] [phone] 04/16/2024 10:00 EST Telemedicine [facility] - [facility] Palliative Care Services [address] [place] [address] 852241 Chichi Woods MD [address] [place] [address] [phone] 04/24/2024 9:00 EST Appointment [facility] Radiology CT Outpatient - [address] [id number] 04/24/2024 11:00 EST Appointment [facility] Breast Imaging - [address] [phone] 04/27/2024 12:00 EST Appointment [facility] Hematology & Oncology - [address] 472931 05/02/2024 15:00 EST Telemedicine [facility] Hematology & Oncology - [address] 431461 Alisson Carreon MD [address] [place] [phone] 05/04/2024 10:15 EST Ancillary Procedure [facility] Cardiology - [address] [place], [place] [phone] 05/04/2024 11:30 EST Appointment [facility] Hematology & Oncology [address] [phone] 05/04/2024 12:00 EST Appointment [facility] Hematology & Oncology [address] [phone] 06/12/2024 13:00 EST Appointment [facility] Radiology CT - [address] [phone] Scheduled Referrals Name Type Priority Associated Diagnoses Order Schedule AMB CONS/FOLLOW UP SPECIALTY PHARMACY MEDICATION PRIOR AUTHORIZATION REQUEST Outpatient Referral Routine/Next Available Malignant neoplasm of right female breast, unspecified estrogen receptor status, unspecified site of breast (HCC-CMS) Metastasis to bone (HCC-CMS) Expected: 12/22/2022 (Approximate), Expires: 12/16/2023 documented as of this encounter Visit Diagnoses Diagnosis Malignant neoplasm of right female breast, unspecified estrogen receptor status, unspecified site of breast (HCC-CMS)- Primary Metastasis to bone (HCC-CMS) Secondary malignant neoplasm of bone and bone marrow documented in this encounter Care Teams Vocational Rehabilitation Counselor Relationship Specialty Start Date End Date Linda Blancas MD [address] [place] [address] PCP - General 01/06/11 Adolfo Carreno MD [address] [place] [phone] General Surgery 04/26/19 Augustina Colin MD PhD 111 [facility], [address] [place] [phone] Medical Oncology 04/26/19 documented as of this encounter
--- OUTSIDE RECORDS SUMMARY | 2024-03-20 14:45 | XMS_ITS | Encounter Summary ---
Author Organization [facility] Address [address] [place] [address] Care Team Providers Care Hotel Housekeeper Name Role Phone Linda Blancas MD Primary Care Provider [phone] Adolfo Carreno MD Unavailable [phone] Augustina Colin MD PhD Unavailable Unavailable Encounter Details Date Type Department Care Team (Late st Contact Info) Description 03/22/2023 Orders Only [facility] Hematology & Oncology - [facility] [address] [place] [address] Kaylah Stevens, SHEL[place] Malignant neoplasm of right [...] on, one week off 84 Tablet 3 03/22/2023 03/28/2023 documented in this encounter Progress Notes * Kaylah Stevens, RN - 03/22/2023 8186 EDT Xeloda refill pended to Dr. Colin per request from speciality pharmacy. Per Dr. Colin last note: Capecitabine 1500mg am and 1500mg pm and then increase to 1500mg BID December 20. One week on and one week off. documented in this encounter Plan of Treatment Upcoming Encounters Date Type Department Care Team (Late st Contact Info) Description 04/02/2024 10:30 EDT Appointment [facility] Interventional Radiology Unit [address] [place], [place] [phone] 04/02/2024 15:15 EDT Office Visit [facility] Surgical Oncology - [facility] [address] [place], [place] 172221 Adolfo Carreno MD 111 [facility], Level 2 [place] [phone] 04/05/2024 9:30 EDT Telemedicine [facility] - [facility] Palliative [facility] Services [address] [place], [place] [phone] Chichi Woods MD [address] [place] [address] 262 [place] [phone] 04/11/2024 15:00 EDT Telemedicine [facility] Hematology & Oncology - [address] [phone] Alisson Carreon MD [address] [place] [address] 2 [place] [phone] 04/13/2024 13:30 EDT Appointment [facility] Hematology & Oncology - [address] 196261 04/13/2024 14:00 EDT Appointment [facility] Hematology & Oncology [address] [phone] 04/16/2024 10:00 EST Telemedicine [facility] - [facility] [address] [place] [address] 037381 Chichi Woods MD [address] [place] [phone] 04/24/2024 9:[address] [facility] Radiology CT Outpatient - [address] 645551 04/24/2024 11:00 EST Appointment [facility] Breast Imaging - [address] 246131 04/27/2024 12:00 EST Appointment [facility] Hematology & Oncology - [address] 085681 05/02/2024 15:00 EST Telemedicine [facility] Hematology & Oncology - [address] 323461 Alisson Carreon MD [address] [place] [address] 2 [place] [phone] 05/04/2024 10:15 EST Ancillary Procedure [facility] Cardiology - [place] [address] [place] [address] 05/04/2024 11:30 EST Appointment [facility] Hematology & Oncology - [address] [phone] 05/04/2024 12:00 EST Appointment [facility] Hematology & Oncology - [address] 015631 06/12/2024 13:[address] [facility] Radiology CT - [address] [id number] documented as of this encounter Visit Diagnoses Diagnosis Malignant neoplasm of right female breast, unspecified estrogen receptor status, unspecified site of breast ([facility])- Primary documented in this encounter Discontinued Medications Medication Sig Discontinue Reason Start Date End Da te capecitabine (XELODA) 500 mg tablet Take 3 Tablets by mouth every 12 hours. one week on, one week off Reorder 11/12/2022 03/22/2023 documented as of this encounter Care Teams Hotel Housekeeper Relationship Specialty Start Date End Date Linda Blancas MD [address] [place] [address] 30 [place] [address] PCP - General 01/06/11 Adolfo Carreno MD [address] [place] [address] [phone] General Surgery 04/26/19 Augustina Colin MD PhD [address] [place] [phone] Medical Oncology 04/26/19 documented as of this encounter
--- OUTSIDE RECORDS SUMMARY | 2024-03-20 14:45 | XMS_ITS | Encounter Summary ---
Author Organization [facility] Address [address] [place] [address] Care Team Providers Care Flight Control Manager Name Role Phone Linda Blancas MD Primary Care Provider [phone] Adolfo Carreno MD Unavailable [phone] Augustina Colin MD PhD Unavailable Unavailable Encounter Details Date Type Department Care Team (Late st Contact Info) Description 03/22/2023 Specialty Pharmacy [facility] Ambulatory Pharm[facility] - [facility] [address] [place] [address] Allen Day, [facility] Social History Tobacco Use Types Packs/Day [...] as of this encounter Progress Notes * Viridiana Kruse - 03/22/2023 1129 EDT Specialty Pharmacy Documentation Medication: capecitabine Clinic: [facility] Reason for Encounter: outreach Notes: req new rx Follow up date: 03/23 Follow up reason: refill documented in this encounter Plan of Treatment Upcoming Encounters Date Type Department Care Team (Late st Contact Info) Description 04/02/2024 10:30 EDT Appointment [facility] Interventional Radiology Unit [address] [place] [address] 230281 04/02/2024 15:15 EDT Office Visit [facility] Surgical Oncology - [address] 728131 Adolfo Carreno MD [address] [place] [address] 2 [place] [phone] 04/05/2024 9:30 EDT Telemedicine [facility] Palliative Care Services [address] [place], [place] 764691 Chichi Woods MD [address] [place] [address], [address] [phone] 04/11/2024 15:00 EDT Telemedicine [facility] Hematology & Oncology - [address] [phone] Alisson Carreon MD [address] [place] [address] 2 [place] [phone] 04/13/2024 13:30 EDT Appointment [facility] Hematology & Oncology - [address] [phone] 04/13/2024 14:00 EDT Appointment [facility] Oncology [address] [address] 04/16/2024 10:00 EST Telemedicine [facility] - [facility] Palliative Care Services [address] [place] [address] [phone] Chichi Woods MD [address] [place] [phone] 04/24/2024 9:00 EST Appointment [facility] Radiology CT Outpatient - [address] [id number] 04/24/2024 11:00 EST Appointment [facility] Breast Imaging - [facility] [address] 194511 04/27/2024 12:00 EST Appointment [facility] Hematology & Oncology - [address] 548161 05/02/2024 15:00 EST Telemedicine [facility] Hematology [facility] Oncology [address] 099941 Alisson Carreon MD [address] [place] [address], [facility], Level 2 [place] [phone] 05/04/2024 10:15 EST Ancillary Procedure [facility] Cardiology - [place] [place] [address] 05/04/2024 11:30 EST Appointment [facility] Hematology & Oncology - [address] [phone] 05/04/2024 12:00 EST Appointment [facility] Hematology & Oncology - [address] [address] 06/12/2024 13:00 [facility] Radiology CT - [address] 255571 documented as of this encounter Visit Diagnoses Not on filedocumented in this encounter Care Teams Flight Control Manager Relationship Specialty Start Date End Date Linda Blancas MD [facility] [address] [place], [place] 8[address]862 PCP - General 01/06/11 Adolfo Carreno MD [address] [place] [address] 2 [place] [phone] General Surgery 04/26/19 Augustina Colin MD PhD [address] [place] [address] 2 [place] [phone] Medical Oncology 04/26/19 documented as of this encounter
--- OUTSIDE RECORDS SUMMARY | 2024-03-20 14:45 | XMS_ITS | Encounter Summary ---
Author Organization [facility] Address [address] [place] [address] Care Team Providers Care Dye House Helper Name Role Phone Linda Blancas MD Primary Care Provider [phone] Adolfo Carreno MD Unavailable Augustina Colin MD PhD Unavailable Unavailable Encounter Details Date Type Department Care Team (Late st Contact Info) Description 03/01/2023 Orders Only [facility] Radiology - [place] [address] [place] [address] Pretty Thornton MD [address] [place] [address] Social History Tobacco Use Types [...] [facility] [address] [place] [address] [phone] 04/02/2024 15:15 EDT Office Visit [facility] Surgical Oncology - [address] [phone] Adolfo Carreno MD [address] [place] [address] 2 [place] [phone] 04/05/2024 9:30 EDT Telemedicine [facility] - [facility] Palliative Care Services [address] [place] [address] [phone] Chichi Woods MD [address] [place] [address], [address] [phone] 04/11/2024 15:00 EDT Telemedicine [facility] Hematology & Oncology [address] 493511 Alisson Carreon MD [address] [place] [address] 2 [place] [phone] 04/13/2024 13:30 EDT Appointment [facility] Hematology & Oncology [address] [id number] 04/13/2024 14:00 EDT Appointment [facility] Hematology & Oncology - [address] [phone] 04/16/2024 10:00 EST Telemedicine [facility] - [facility] Palliative Care Services [address] [place], [place] 721281 Chichi Woods MD 111 [facility], [address] [phone] 04/24/2024 9:00 EST Appointment [facility] Radiology CT Outpatient - [address] 157661 04/24/2024 11:00 EST Appointment [facility] Breast Imaging - [facility] [address] 309411 04/27/2024 12:00 EST Appointment [facility] Hematology & Oncology - [address] [phone] 05/02/2024 15:00 EST Telemedicine [facility] Hematology & Oncology - [address] 156211 Alisson Carreon MD [address] [place] [address], Level 2 [place] [phone] 05/04/2024 10:15 EST Ancillary Procedure [facility] Cardiology [place] [address] 05/04/2024 11:30 EST Appointment [facility] Hematology & Oncology - [address] 102971 05/04/2024 12:00 EST Appointment [facility] Hematology & Oncology - [address] [address] 06/12/2024 13:00 EST Appointment [facility] Radiology CT - [address] 059001 documented as of this encounter Visit Diagnoses Not on filedocumented in this encounter Care Teams Dye House Helper Relationship Specialty Start Date End Date Linda Blancas MD [address] [place] [address] 30 [place] [address] PCP - General 01/06/11 Adolfo Carreno MD [address] [place] [phone] General Surgery 04/26/19 Augustina Colin MD PhD [address] [place] [phone] Medical Oncology 04/26/19 documented as of this encounter
--- OUTSIDE RECORDS SUMMARY | 2024-03-20 14:45 | XMS_ITS | Encounter Summary ---
Author Organization [facility] Address [address] [place] [address] Care Team Providers Care Regional Intermodal Truck Driver Name Role Phone Linda Blancas MD Primary Care Provider [phone] Adolfo Carreno MD Unavailable [phone] Augustina Colin MD PhD Unavailable Unavailable Reason for Visit * Reason Onset Date Comments Coordination Of Care 02/16/2023 Labs needed before infusion tomorrow Encounter Details Date Type Department Care Team (Late st Contact Info) Description 02/16/2023 Telephone [facility] Hematology & Oncology - [facility] [address] [place] [address] Laine Hall, RN Coordination Of Care (Labs needed before infusion tomorrow) Social History Tobacco Use Types Packs/Day Years [...] encounter Miscellaneous Notes * Telephone Encounter - Laine Hall RN - 02/16/2023 1106 EDT Moving Zometa infusion to 02/28 to accomodate getting labs prior to infusion and patient will already be in the area for her MRI later that day. Patient will get labs at [facility] the week prior. CBC and CMP ordered and faxed to [facility] at [phone] Ca27.29 ordered to be drawn on Shep4 tomorrow LAINE HALL RN documented in this encounter Plan of Treatment Upcoming Encounters Date Type Department Care Team (Late st Contact Info) Description 04/02/2024 10:30 EDT Appointment [facility] Interventional Radiology Unit [address] [place] [address] 102041 04/02/2024 15:15 EDT Office Visit [facility] Surgical Oncology - [facility] [address] [place], [place] 621141 Adolfo Carrneo MD 111 [facility] Level 2 [place] [phone] 04/05/2024 9:30 EDT Telemedicine [facility] Palliative Care Services [address] [place], [place] 597521 Chichi Woods MD 111 [facility] [address] [place] [phone] 04/11/2024 15:00 EDT Telemedicine [facility] Hematology & Oncology - [address] [phone] Alisson Carreon MD [address] [place] [address], [facility] 2 [place] [phone] 04/13/2024 13:30 EDT Appointment [facility] Hematology & Oncology - [address] [id number] 04/13/2024 14:00 EDT Appointment [facility] Hematology & Oncology [address] 114771 04/16/2024 10:00 EST Telemedicine [facility] - [facility] Palliative Care Services [address] [place] [address] Chichi Woods MD [address] [place] [phone] 04/24/2024 9:00 EST Appointment [facility] Radiology CT Outpatient - [address] 797651 04/24/2024 11:00 EST Appointment [facility] Breast Imaging - [facility] S [address] 495081 04/27/2024 12:00 EST Appointment [facility] Hematology & Oncology - [address] 355851 05/02/2024 15:00 EST Telemedicine [facility] Hematology & Oncology - [address] 013511 Alisson Carreon MD [address] [place] [address], [facility] 2 [place] [phone] 05/04/2024 10:15 EST Ancillary Procedure [facility] Cardiology - [address] [place], [place] [phone] 05/04/2024 11:30 EST Appointment [facility] Hematology & Oncology - [address] [phone] 05/04/2024 12:00 EST Appointment [facility] Hematology & Oncology [address] [phone] 06/12/2024 13:00 EST Appointment [facility] Radiology CT - [address] [address] documented as of this encounter Results * (ABNORMAL) COMPREHENSIVE METABOLIC PANEL (ONCOLOGY USE ONLY-INC MG) (04/04/2023 16:53 EDT) Sodium 141 136 - 145 mmol/L 04/04/2023 17:24 EDT [facility] Potassium 4.0 3.5 - 5.0 mmol/L 04/04/2023 17:24 [facility] Chloride 110 96 - 110 mmol/L 04/04/2023 17:24 [facility] CO2 Total 22 22 - 32 mmol/L 04/04/2023 17:24 [facility] Glucose 108(H) 70 - 99 mg/dl 04/04/2023 17:24 [facility] BUN 18 10 - 26 mg/dL 04/04/2023 17:24 [facility] Creatinine 0.74 0.52 - 1.04 mg/dL 04/04/2023 17:24 [facility] eGFR 92 >60 mL/min/1.7 3m2 04/04/2023 17:24 [facility] Total Protein 6.4 6.3 - 8.2 g/dL 04/04/2023 17:24 [facility] Albumin 3.6 3.4 - 4.9 g/dL 04/04/2023 17:24 [facility] Alkaline Phosphatase 149(H) 38 - 126 U/L 04/04/2023 17:24 [facility] AST 57(H) 15 - 46 U/L 04/04/2023 17:24 T [facility] ALT 34 <35 U/L 04/04/2023 17:24 [facility] Bilirubin, Total 0.9 <1.4 mg/dL 04/04/20 17:24 [facility] Calcium 8.8 8.5 - 10.5 mg/dL 04/04/2023 17:24 T [facility] Magnesium 2.0 1.7 - 2.8 mg/dL 04/04/2023 17:24 [facility] Albumin/Globulin Ratio 1.3 1.0 - 2.5 g/dL 04/04/2023 17:24 [facility] Anion Gap 9 5 - 14 mmol/L 04/04/2023 17:24 [facility] Blood VENOUS BLOOD / Unknown Venipuncture / Unknown 04/04/2023 16:53 EDT 04/04/2023 16:58 EDT Augustina Colin MD PhD CHEMISTRY & BLOOD GA S ORDERABLES Performing Organization Address City/State/[facility] Co de Phone Number [facility] [address] [place] [address] * (ABNORMAL) COMPLETE BLOOD COUNT AND DIFFERENTIAL (04/04/2023 16:53 EDT) WBC 5.56 4.00 - 12.40 K/cmm 04/04/2023 17:21 [facility] RBC 3.11(L) 3.86 - 5.04 M/cmm 04/04/2023 17:21 [facility] Hemoglobin 11.9 11.6 - 15.2 g/dL 04/04/2023 17:21 [facility] HCT 33.5(L) 34.9 - 44.4 % 04/04/2023 17:21 [facility] MCV 108(H) 81 - 98 fL 04/04/2023 17:21 [facility] MCH 38.3(H) 26.7 - 33.3 pg 04/04/2023 17:21 [facility] MCHC 35.5 32.1 - 35.9 g/dL 04/04/2023 17:21 [facility] RDW-CV 16.2(H) <14.7 % 04/04/2023 17:21 [facility] RDW-SD 63.5(H) <50.4 fl 04/04/2023 17:21 [facility] PLT 114(L) 141 - 377 K/cmm 04/04/2023 17:21 [facility] MPV 10.7 9.5 - 12.7 fL 04/04/2023 17:21 [facility] % Neutrophils 71.9 % 04/04/2023 17:21 [facility] % Lymphocytes 14.2 % 04/04/2023 17:21 [facility] % Monocytes 11.9 % 04/04/2023 17:21 [facility] % Eosinophils 1.1 % 04/04/2023 17:21 [facility] % Basophils 0.4 % 04/04/2023 17:21 [facility] % Immature Grans 0.5 % 04/04/20 17:21 [facility] Absolute Neutrophils 4.00 2.20 - 8.85 K/cmm 04/04/2023 17:21 [facility] Absolute Lymphocytes 0.79(L) 1.09 - 3.30 K/cmm 04/04/2023 17:21 [facility] Absolute Monocytes 0.66 0.10 - 0.80 K/cmm 04/04/2023 17:21 [facility] Absolute Eosinophils 0.06 0.03 - 0.61 K/cmm 04/04/2023 17:21 [facility] ABS Basophils 0.02 0.01 - 0.11 K/cmm 04/04/2023 17:21 [facility] Absolute Immature Grans 0.03 0.00 - 0.06 K/cmm 04/04/2023 17:21 EDT [facility] Type of Differential: Auto 04/04/2023 17:21 EDT [facility] Blood VENOUS BLOOD / Unknown Venipuncture / Unknown 04/04/2023 16:53 EDT 04/04/2023 17:00 EDT Augustina Colin MD PhD PACKAGES & DNA PROBE ORDERABLES [facility] [address] [place] [address] documented in this encounter Visit Diagnoses Diagnosis Malignant neoplasm of right female breast, unspecified estrogen receptor status, unspecified site of breast ([facility])- Primary documented in this encounter Orders Lab Orders Without Results Count Last Ordered D ate First Ordered Date CA 27.29 1 02/16/2023 documented in this encounter Care Teams Regional Intermodal Truck Driver Relationship Specialty Start Date End Date Linda Blancas MD [facility] [address] [place] [address] PCP - General 01/06/11 Adolfo Carreno MD [address] [place] [phone] General Surgery 04/26/19 Augustina Colin MD PhD [address] [place] [phone] Medical Oncology 04/26/19 documented as of this encounter
--- OUTSIDE RECORDS SUMMARY | 2024-03-20 14:46 | XMS_ITS | Encounter Summary ---
Author Organization [facility] Address [address] [place] [address] Care Team Providers Care Electronic Warfare Specialist Name Role Phone Linda Blancas MD Primary Care Provider [phone] Adolfo Carreno MD Unavailable [phone] Augustina Colin MD PhD Unavailable Unavailable Reason for Referral * Radiology Services (Routine/Next Available) - Authorization Not Required Specialty Diagnoses / Procedures Referred By Contac t Referred To Contact Diagnoses Encounter for screening mammogram for malignant neoplasm of breast Procedures MA BREAST SCREENING Linda Robertson MD [address] [place] [address] [facility] Referral ID Status Reason Start Date Expiration Date Visits Requested Visits Authorized [id number] Authorization Not Required 01/23/2022 1 1 Reason for Visit * Radiology Services (Routine/Next Available) - Authorization Not Required Specialty Diagnoses / Procedures Referred By Doug hearn Referred To Contact Diagnoses Encounter for screening mammogram for malignant neoplasm of breast Procedures MA BREAST SCREENING Linda Robertson MD [address] [place] [address] [facility] Referral ID Status Reason Start Date Expiration Date Visits Requested Visits Authorized [id number] Authorization Not Required 01/23/2022 1 1 Encounter Details Date Type Department Care Team (Latest Contact Info) Description 08/31/2022 11:00 EDT - 08/31/2022 23:59 EDT Hospital Encounter [facility] Breast Imaging - [facility] [address] [place] [address] Encounter for screening mammogram for malignant neoplasm of breast Discharge Disposition: Home or Self Care Social [...] 3 Tablets by mouth every 12 hours. Take 3 tablets every 12 hours for seven days. Then hold for seven days. Repeat pattern. 84 Tablet 3 07/23/2022 11/12/2022 gabapentin (NEURONTIN) 100 mg capsule Take 2 Caps by mouth 2 times daily. 360 Cap 3 08/16/2012 12/14/2023 ibuprofen (MOTRIN) 200 mg tablet Take 2 Tablets by mouth as needed. 12/07/2023 mv-mn/C/glutamin/lysin/h [id number] (AIRBORNE, ASCORBATE SODIUM, ORAL) Take by mouth [...] Contact Info) Description 04/02/2024 10:30 EDT Appointment [facility] Interventional Radiology Unit [address] [place] [phone] 04/02/2024 15:15 EDT Office Visit [facility] Surgical Oncology - [facility] [address], [place] [phone] Adolfo Carreno MD 111 [facility], Level [address] [place] [phone] 04/05/2024 9:[address] [facility] - [facility] Palliative Care Services [address], [place] [phone] Chichi Woods MD 111 [facility], [address] [phone] 04/11/2024 15:00 EDT Telemedicine [facility] Hematology & Oncology - [address] [phone] Alisson Carreon MD [address] [place] [address], [facility] [address] [place] [phone] 04/13/2024 13:30 EDT Appointment [facility] Hematology & Oncology - [address] [phone] 04/13/2024 14:00 EDT Appointment [facility] Hematology & Oncology [address] [phone] 04/16/2024 10:[address] [facility] - [facility] Palliative Care Services [address] [place] [address] Chichi Woods MD [address] [place] [phone] 04/24/2024 9:00 EST Appointment [facility] Radiology CT Outpatient - [address] [id number] 04/24/2024 11:00 EST Appointment [facility] Breast Imaging - [facility] [address] [id number] 04/27/2024 12:00 EST Appointment [facility] Hematology & Oncology - [address] [phone] 05/02/2024 15:00 EST Telemedicine [facility] Hematology & Oncology [address] [phone] Alisson Carreon MD [address] [place] [address], [facility] [address] [place] [phone] 05/04/2024 10:15 EST Ancillary Procedure [facility] Cardiology - [address] [place], [place] [phone] 05/04/2024 11:30 EST Appointment [facility] Hematology & Oncology [address] [id number] 05/04/2024 12:00 EST Appointment [facility] Hematology & Oncology [address] [phone] 06/12/2024 13:00 EST Appointment [facility] Radiology CT - [address] [phone] documented as of this encounter Procedures Procedure Name Priority Date/Time Associated Diagnosis Comments MA BREAST SCREENING ESTEVAN LEFT Routine 08/31/2022 11:26 EDT Encounter for screening mammogram for malignant neoplasm of breast documented in this encounter Results * MA BREAST SCREENING ESTEVAN LEFT (08/31/2022 11:26 EDT) Anatomical Region Laterality Modality Breast Left Mammography 08/31/2022 14:3 3 EDT Impressions 08/31/2022 14:33 EDT Negative, no evidence of malignancy. RECOMMENDATION: Routine screening mammography is recommended. OVERALL ASSESSMENT: BI-RADS 1: Negative These results will be communicated to your patient via a lay letter from Radiology. If any additional imaging is needed we will contact your patient directly. Narrative 08/31/2022 14:33 EDT MA BREAST SCREENING ESTEVAN LEFT ??08/31/2022 11:00 AM History: Routine Comparison: ??Comparison has been made to previous images. Technique: Routine 3D tomosynthesis with synthesized 2D views with CAD Breast Composition: There are scattered areas of fibroglandular density. Left Breast Findings: No significant masses, calcifications or other abnormalities are seen. Procedure Note Roula Dickerson MD - 08/31/2022 MA BREAST SCREENING ESTEVAN LEFT 08/31/2022 11:00 AM History: Routine Comparison: Comparison has been made to previous images. Technique: Routine 3D tomosynthesis with synthesized 2D views with CAD Breast Composition: There are scattered areas of fibroglandular density. Left Breast Findings: No significant masses, calcifications or otherabnormalities are seen. IMPRESSION Negative, no evidence of malignancy. RECOMMENDATION: Routine screening mammography is recommended. OVERALL ASSESSMENT: BI-RADS 1: Negative These results will be communicated to your patient via a lay letter fromRadiology. If any additional imaging is needed we will contact yourpatient directly. Linda Blancas MD IMG MAMMOGRAPHY ORDJacquelyn ACOSTA documented in this encounter Visit Diagnoses Diagnosis Encounter for screening mammogram for malignant neoplasm of breast Other screening mammogram documented in this encounter Care Teams Electronic Warfare Specialist Relationship Specialty Start Date End Date Linda Blancas MD [address] [place] [address] [address] [place] [address] PCP - General 01/06/11 Adolfo Carreno MD [address] [place] [phone] General Surgery 04/26/19 Augustina Colin MD PhD [address] [place] [address] [address] [place] [phone] Medical Oncology 04/26/19 documented as of this encounter
--- OUTSIDE RECORDS SUMMARY | 2024-03-20 14:46 | XMS_ITS | Encounter Summary ---
Author Organization [facility] Address [address] [place] [address] Care Team Providers Care Superintendent Measurement Name Role Phone Linda Blancas MD Primary Care Provider [phone] Adolfo Carreno MD Unavailable [phone] Augustina Colin MD PhD Unavailable Unavailable Encounter Details Date Type Department Care Team (Late st Contact Info) Description 11/18/2022 Orders Only [facility] Hematology & Oncology - [facility] [address] [place] [address] Augustina Colin, PhD Social History Tobacco Use [...] Contact Info) Description 04/02/2024 10:30 EDT Appointment [facility] Interventional Radiology Unit [address] [place] [address] [phone] 04/02/2024 15:15 EDT Office Visit [facility] Surgical Oncology - [address] [phone] Adolfo Carreno MD [address] [place] [phone] 04/05/2024 9:30 EDT Telemedicine [facility] - [facility] Palliative Care Services [address] [place] [address] [phone] Chichi Woods MD [address] [place] [phone] 04/11/2024 15:00 EDT Telemedicine [facility] Hematology & Oncology [address] [phone] Alisson Carreon MD [address] [place] [address] [phone] 04/13/2024 13:30 EDT Appointment [facility] Hematology & Oncology [address] [phone] 04/13/2024 14:00 EDT Appointment [facility] Hematology & Oncology [address] [id number] 04/16/2024 10:00 EST Telemedicine [facility] - [facility] Palliative Care Services [address] [place] [address] [phone] Chichi Woods MD [address] [place] [address], [address] [phone] 04/24/2024 9:00 EST Appointment [facility] Radiology CT Outpatient - [address] [id number] 04/24/2024 11:00 EST Appointment [facility] Breast Imaging - [facility] S [place] [address] [place], [place] [phone] 04/27/2024 12:00 EST Appointment [facility] Hematology & Oncology - [address] [phone] 05/02/2024 15:00 EST Telemedicine [facility] Hematology & Oncology - [address] [address] Alisson Carreon MD [address] [place] [address], [facility], Level [address] [place] [phone] 05/04/2024 10:15 EST Ancillary Procedure [facility] Cardiology - [address] [place], [place] [phone] 05/04/2024 11:30 EST Appointment [facility] Hematology & Oncology - [address] [phone] 05/04/2024 12:00 EST Appointment [facility] Hematology & Oncology [address] [phone] 06/12/2024 13:00 EST Appointment [facility] Radiology CT - [address] [phone] documented as of this encounter Visit Diagnoses Not on filedocumented in this encounter Additional Health Concerns Infection Onset Date Last Indicated Resolved Time R/O COVID-19 12/12/2023 12/12/2023 12/12/2023 15:3 5 EDT R/O COVID-19 01/08/2024 01/08/2024 01/08/2024 18:2 6 EDT R/O COVID-19 01/16/2024 01/16/2024 01/16/2024 17:5 0 EDT documented as of this encounter Care Teams Superintendent Measurement Relationship Specialty Start Date End Date Linda Blancas MD [facility] [address] [place] [address] PCP - General 01/06/11 Adolfo Carreno MD [address] [place] [address] [address] [place] [phone] General Surgery 04/26/19 Augustina Colin MD PhD [address] [place] [address], [facility] 2 [place] [phone] Medical Oncology 04/26/19 documented as of this encounter
--- OUTSIDE RECORDS SUMMARY | 2024-03-20 14:46 | XMS_ITS | Encounter Summary ---
Author Organization [facility] Address [address] [place] [address] Care Team Providers Care Instructional Systems Specialist Name Role Phone Linda Blancas MD Primary Care Provider [phone] Adolfo Carreno MD Unavailable [phone] Augustina Colin MD PhD Unavailable Unavailable Reason for Referral * Radiology Services (Routine/Next Available) - Authorized Specialty Diagnoses / Procedures Referred By Contac t Referred To Contact Radiology Diagnoses Liver metastases Procedures MR ABDOMEN W JIMMIE CONTRAST David Moya MD [address] [place] [phone] [facility] Referral ID Status Reason Start Date Expiration Date V isits Requested Visits Authorized [id number] Authorized 11/04/2022 05/03/2023 1 1 Reason for Visit * Radiology Services (Routine/Next Available) - Authorized Specialty Diagnoses / Procedures Referred By Contdayanna t Referred To Contact Radiology Diagnoses Liver metastases Procedures MR ABDOMEN W JIMMIE CONTRAST David Moya MD [address] [place] [phone] [facility] Referral ID Status Reason Start Date Expiration Date V isits Requested Visits Authorized [id number] Authorized 11/04/2022 05/03/2023 1 1 Encounter Details Date Type Department Care Team (Latest Contact Info) Description 11/16/2022 12:06 EDT - 11/16/2022 23:59 EDT Hospital Encounter [facility] [address] [place] [address] Malignant neoplasm metastatic to liver (HCC-CMS) Discharge Disposition: Home or Self [...] Tablets by mouth as needed. 12/07/2023 mv-mn/C/glutamin/lysin/h [id number] (AIRBORNE, ASCORBATE SODIUM, ORAL) Take by mouth [...] Contact Info) Description 04/02/2024 10:30 EDT Appointment [facility] Interventional Radiology Unit [address] [place] [phone] 04/02/2024 15:15 EDT Office Visit [facility] Surgical Oncology - [facility] [address] [place], [place] [phone] Adolfo Carreno MD 111 [facility], Level [address] [place] [phone] 04/05/2024 9:30 EDT Telemedicine [facility] Palliative Care Services [address] [place], [place] [phone] Chichi Woods MD [address] [phone] 04/11/2024 15:[address] [facility] Hematology & Oncology - [address] [phone] Alisson Carreon MD [address] [place] [address], [facility] 2 [place] [phone] 04/13/2024 13:[address] [facility] Hematology & Oncology - [address] [phone] 04/13/2024 14:[address] [facility] Hematology & Oncology - [address] [phone] 04/16/2024 10:00 EST Telemedicine [facility] - [facility] Palliative Care Services [address] [place] [address] [phone] Chichi Woods MD [address] [place] [phone] 04/24/2024 9:00 EST Appointment [facility] Radiology CT Outpatient - [address] [id number] 04/24/2024 11:00 EST Appointment [facility] Breast Imaging - [facility] S [address] [id number] 04/27/2024 12:[address] [facility] Hematology & Oncology - [address] [phone] 05/02/2024 15:[address] [facility] Hematology & Oncology - [address] [phone] Alisson Carreon MD [address] [place] [address], [facility] [address] [place] [phone] 05/04/2024 10:15 EST Ancillary Procedure [facility] Cardiology - [address] [place] [address] 05/04/2024 11:[address] [facility] Hematology & Oncology [address] [phone] 05/04/2024 12:[address] [facility] Hematology & Oncology [address] [id number] 06/12/2024 13:00 EST Appointment [facility] Radiology CT - [address] [phone] documented as of this encounter Procedures Procedure Name Priority Date/Time Associated Diagnosis Comments MR ABDOMEN W WO CONTRAST Routine 11/16/2022 13:05 EDT Malignant neoplasm metastatic to liver (HCC-CMS) documented in this encounter Results * MR ABDOMEN W WO CONTRAST (11/16/2022 13:05 EDT) Anatomical Region Laterality Modality Body, Abdomen Magnetic Resonan ce 11/16/2022 17:1 5 EDT Impressions 11/16/2022 17:15 EDT 1. New subcentimeter indeterminate focus of DWI and T2 hyperintensity, without associated abnormality on postcontrast imaging. Attention at follow-up recommended. 2. Treated lesions throughout the liver, status post right and left lobe radio embolization. 3. Incompletely imaged right iliac wing lesion. 4. Cholelithiasis. Narrative 11/16/2022 17:15 EDT MR ABDOMEN W WO CONTRAST ??11/16/2022 12:30 PM Signs and Symptoms/Comments: ?? Liver metastases s/p Y90. Technique: MR sequences of the abdomen was performed with and without IV contrast. Comparison: August 13, 2022 Findings: Lower chest: Bilateral breast prostheses. Hepatobiliary: Heterogeneous geographic areas of T2 hyperintensity and postcontrast enhancement related to treated disease/fibrosis/scarring. There is a 0.7 cm focus of hyperintensity on B800 series 304 image 132, new from prior with slight T2 hyperintensity at the site (series 601 image 11). No abnormality is seen at this site on postcontrast sequences. There are no suspicious lesion on postcontrast imaging. Small foci of hypoenhancement scattered throughout the liver at sites of treated disease. Gallbladder sludge and cholelithiasis. Normal caliber biliary tree. Spleen, pancreas, adrenal glands: No suspicious lesion. Kidneys, proximal ureters: No suspicious renal lesion. No hydroureteronephrosis. Bowel: No obstruction or acute inflammation. Peritoneal cavity: Trace perihepatic fluid. Lymphovascular: No pathologically enlarged lymph nodes. Aorta is normal in caliber. Portal and hepatic veins are patent. Abdominal wall: No bowel containing hernia. Musculoskeletal: Posterior lumbar fusion. Minimal residual enhancement involving the left posterior rib (series 901 image 128), at the site of healing ninth rib fracture prior CT. Right iliac crest lesion is incompletely imaged. Localizer: No additional findings. Procedure Note Richard Antonio MD - 11/16/2022 MR ABDOMEN W WO CONTRAST 11/16/2022 12:30 PM Signs and Symptoms/Comments: Liver metastases s/p Y90. Technique: MR sequences of the abdomen was performed with and without IV contrast. Comparison: August 13, 2022 Findings: Lower chest: Bilateral breast prostheses. Hepatobiliary: Heterogeneous geographic areas of T2 hyperintensity andpostcontrast enhancement related to treated disease/fibrosis/scarring.There is a 0.7 cm focus of hyperintensity on B800 series 304 image 132,new from prior with slight T2 hyperintensity at the site (series 601 image11). No abnormality is seen at this site on postcontrast sequences. Thereare no suspicious lesion on postcontrast imaging. Small foci ofhypoenhancement scattered throughout the liver at sites of treateddisease. Gallbladder sludge and cholelithiasis. Normal caliber biliarytree. Spleen, pancreas, adrenal glands: No suspicious lesion. Kidneys, proximal ureters: No suspicious renal lesion. Nohydroureteronephrosis. Bowel: No obstruction or acute inflammation. Peritoneal cavity: Trace perihepatic fluid. Lymphovascular: No pathologically enlarged lymph nodes. Aorta is normal incaliber. Portal and hepatic veins are patent. Abdominal wall: No bowel containing hernia. Musculoskeletal: Posterior lumbar fusion. Minimal residual enhancementinvolving the left posterior rib (series 901 image 128), at the site ofhealing ninth rib fracture prior CT. Right iliac crest lesion isincompletely imaged. Localizer: No additional findings. IMPRESSION 1. New subcentimeter indeterminate focus of DWI and T2 hyperintensity,without associated abnormality on postcontrast imaging. Attention atfollow-up recommended. 2. Treated lesions throughout the liver, status post right and left loberadio embolization. 3. Incompletely imaged right iliac wing lesion. 4. Cholelithiasis. David Moya MD IMG MRI JAIMEE ACOSTA documented in this encounter Visit Diagnoses Diagnosis Malignant neoplasm metastatic to liver (HCC-CMS) Secondary malignant neoplasm of liver documented in this encounter Administered Medications Inactive Administered Medications - up to 3 most recent administrations Medication Order MAR Action Action Date Dose Rate Site gadoterate meglumine solution 1-30 mL 1-30 mL, intravenous, Once in imaging, 1 dose, Starting on 11/16/22 at 1225, Until 11/16/22 at 1240, Routine, Imaging Protocol Orders Given 11/16/2022 12:40 EDT 11 mL documented in this encounter Orders Medications Ordered That Vj ht Not Have Been Administered Count Last Ordered Date First Ordered Date gadoterate meglumine solution 1-30 mL 1 11/2022 documented in this encounter Care Teams Instructional Systems Specialist Relationship Specialty Start Date End Date Linda Blancas MD [facility] [address] [place] [address] PCP - General 01/06/11 Adolfo Carreno MD [address] [place] [phone] General Surgery 04/26/19 Augustina Colin MD PhD [address] [place] [phone] Medical Oncology 04/26/19 documented as of this encounter
--- OUTSIDE RECORDS SUMMARY | 2024-03-20 14:46 | XMS_ITS | Encounter Summary ---
Author Organization [facility] Address [address] [place] [address] Care Team Providers Care Brand Designer Name Role Phone Linda Blancas MD Primary Care Provider [phone] Adolfo Carreno MD Unavailable [phone] Augustina Colin MD PhD Unavailable Unavailable Reason for Referral * Radiology Services (Routine/Next Available) - Authorized Specialty Diagnoses / Procedures [facility] Referred To Contact Radiology Diagnoses Liver metastases Procedures MR ABDOMEN W WO CONTRAST David Moya MD [address] [place] [phone] [facility] Referral ID Status Reason Start Date Expiration Date V isits Requested Visits Authorized [id number] Authorized 11/04/2022 05/03/2023 1 1 Reason for Visit * Reason Comments IR Procedure Follow-up Encounter Details Date Type Department Care Team (Late st Contact Info) Description 08/18/2022 14:00 EST Telemedicine [facility] Interventional Radiology - [address] [address] David Moya MD [address] [place], [place] [phone] Liver metastases (HCC-CMS) (HCC) (HCC-CMS) (Primary Dx) Social History Tobacco Use [...] Progress Notes * David Moya MD - 08/18/2022 1400 EST Subjective: Patient ID: Sunshine Pleitez is an 62 y.o. female. Chief Complaint Patient presents with ??? IR Procedure Follow-up Type of visit: Televideo Medical oncologist: Augustina Colin [facility] 62-year-old female seen in follow-up after liver directed therapy for breast cancer liver metastases. Patient with a long history of breast cancer including metastases to the mediastinum, cervical lymph nodes, lungs, liver, and bones, who developed liver specific disease progression. Patient had been on systemic capecitabine and had significant [id number] symptoms related to this and desire todecrease the dose of capecitabine. Therefore, conventional dose lobar transarterial radioembolization was given to the right lobe of the liver on 04/08/2022, followed by the left lobe of the liver on05/14/2022. The patient tolerated the left lobe embolization easily, however had significant postembo lization syndrome following right lobe treatment. Today, the patient is asymptomatic from her liver. The patient feels well, and states that her side effects from the capecitabine are much improved after reducing the dose. MRI 08/13/2022 reveals no areas of restricted diffusion in her liver, consistent with favorable treatment response, no viable tumor. No new lesions. Labs 08/13/2022 significant for creatinine 0.7, albumin 3.9, total bilirubin 0.9, and platelets 126. Patient Active Problem List Diagnosis ??? Papanicolaou [...] fat pad atrophy ??? Breast lump ??? Metastatic breast cancer (HCC-CMS) (HCC) ??? Malignant neoplasm of female breast (HCC-CMS) (HCC) ??? Encounter for palliative care ??? Osteopenia [...] no issues currently 08/25/20 ??? 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 Breast cancer, right (HCC-CMS) (HCC) ??? Depression 08/25/20 well controlled ??? Environmental [...] GA no complications ??? BREAST SURGERY 08/2018 fur dresser placed right breast - GA no complications ??? CARPAL TUNNEL RELEASE 200705/07/2019 beir block - no complications ??? FOOT SURGERY 05/2021 right big toe fused, right little toe screw ??? LIPOMA RESECTION 200005/07/2019 [place] no complications ??? MASTECTOMY Right ??? [place] INSJ/RPLCMT BREAST IMPLANT Feb MASTECTOMY Bilateral 05/30/2019 Exchange right tissue fur dresser to silicone implant, exchange of left implant for matching performedby Tylor Boss MD at [facility] OR Family History Problem Relation Age [...] Alcohol use: Yes Alcohol/week: 2.0 standard drinks Types: 2 Glasses of wine per week ??? Drug use: No No outpatient medications have been marked as taking for the 08/18/22 encounter (Telemedicine) with David Moya MD. Allergies Allergen Reactions ??? Amoxicillin Other (See Comments) and Rash Red rash ??? Sulfa (Sulfonamide Antibiotics) Hives Light lavender rash ROS - See HPI Objective: There were no vitals taken for this visit. Physical Exam Not performed Assessment: 62-year-old female doing well after transarterial radioembolization to breast cancer liver metastases. On imaging, the patient has a complete response, without residual viable tumor. I will continue to follow her liver with serial imaging to ensure adequate response, without tumor recurrence. Plan: Sunshine was seen today for ir procedure follow-up. Diagnoses and all orders for this visit: Liver metastases (HCC-CMS) (HCC) - MR ABDOMEN W WO CONTRAST; Future 3-month office visit with MRI at that time I spent a total of 10 minutes in face to face time with this patient and 10 minutes of that time was spent in disease review, image review, counseling, treatment planning and coordination of care as described in the progress note. David Moya MD TELEMEDICINE VIDEO VISIT Today's visit was provided through telemedicine video conferencing: I have reviewed the appropriateness of using video technology with the patient with regards to today's visit. The location of the patient : Home Patient location state: Visit Location State: [place] The location of the provider: Office Provider location state: Visit Location State: [place] The following people and their roles were present for today's visit: Appointment Provider: David Moya MD Geoffrey Michael Scriver, MD documented in this encounter Plan of Treatment Upcoming Encounters Date Type Department Care Team (Late st Contact Info) Description 04/02/2024 10:30 EDT Appointment [facility] Interventional Radiology Unit [address] [place] [address] 04/02/2024 15:15 EDT Office Visit [facility] Surgical Oncology - [facility] [address] [place], [place] [phone] Adolfo Carreno MD 111 [facility], Level 2 [place] [phone] 04/05/2024 9:30 EDT Telemedicine [facility] Palliative Care Services [address] [place], [place] [phone] Chichi Woods MD 111 [facility] [place] [address] [place] [phone] 04/11/2024 15:00 EDT Telemedicine [facility] Hematology & Oncology - [address] [phone] Alisson Carreon MD [address] [place] [address] 2 [place] [phone] 04/13/2024 13:30 EDT Appointment [facility] Hematology & Oncology - [address] [address]120[address] 04/13/2024 14:00 EDT Appointment [facility] Hematology & Oncology - [address] [phone] 04/16/2024 10:00 EST Telemedicine [facility] - [facility] Palliative Care Services [address] [place] [phone] Chichi Woods MD [address] [place] [phone] 04/24/2024 9:00 EST [facility] Rad[facility] CT Outpatient - [address] [phone] 04/24/2024 11:00 EST Appointment [facility] Breast Imaging - [address] [phone] 04/27/2024 12:00 EST Appointment [facility] Hematology & Oncology - [address] [phone] 05/02/2024 15:00 EST Telemedicine [facility] Hematology & Oncology - [address] [phone] Alisson Carreon MD [address] [place] [address], [facility] 2 [place] [phone] 05/04/2024 10:15 EST Ancillary Procedure [facility] Cardiology [place] [address] 05/04/2024 11:30 EST Appointment [facility] Hematology & Oncology [address] [address] 05/04/2024 12:00 EST Appointment [facility] Hematology & Oncology [address] [address] 06/12/2024 13:00 EST Appointment [facility] Radiology CT - [address] [address] documented as of this encounter Results * [...] documented in this encounter Visit Diagnoses Diagnosis Liver metastases- Primary Secondary malignant neoplasm of liver Malignant neoplasm metastatic to liver (HCC-CMS) Secondary malignant neoplasm of liver documented in this encounter Care Teams Brand Designer Relationship Specialty Start Date End Date Linda Blancas MD [address] [place] [address] 30 [place] [address] PCP - General 01/06/11 Adolfo Carreno MD [address] [place] [phone] General Surgery 04/26/19 Augustina Colin MD PhD [address] [place] [phone] Medical Oncology 04/26/19 documented as of this encounter
--- OUTSIDE RECORDS SUMMARY | 2024-03-20 14:46 | XMS_ITS | Encounter Summary ---
Author Organization [facility] Address [address] [place] [address] Care Team Providers Care Senior Physical Therapist Name Role Phone Linda Blancas MD Primary Care Provider [phone] Adolfo Carreno MD Unavailable [phone] Augustina Colin MD PhD Unavailable Unavailable Encounter Details Date Type Department Care Team (Late st Contact Info) Description 08/31/2022 11:45 EDT Phlebotomy Only [facility] Laboratory Services - [address] [address] [place] Hearing Officer, [facility] Lab Metastatic breast cancer (HCC-CMS) (HCC) (HCC-CMS); Osteopenia of necks of both femurs Social History Tobacco Use Types Packs/Day Years [...] Appointment [facility] Interventional Radiology Unit [address] [place], [place] [address] 04/02/2024 15:15 EDT Office Visit [facility] Surgical Oncology [address] [phone] Adolfo Carreno MD [address] [place] [address] 2 [place] [phone] 04/05/2024 9:30 EDT Telemedicine [facility] - [facility] Palliative Care Services [address] [place], [place] [phone] Chichi Woods MD [address] [place] [address], [address] [phone] 04/11/2024 15:00 EDT Telemedicine [facility] Hematology & Oncology [address] [phone] Alisson Carreon MD [address] [place] [address] 2 [place] [phone] 04/13/2024 13:30 EDT Appointment [facility] Hematology & Oncology [address] [phone] 04/13/2024 14:00 EDT Appointment [facility] Hematology & Oncology - [address] [address] 04/16/2024 10:00 EST Telemedicine [facility] - [facility] Palliative Care Services [address] [place] [address] [phone] Chichi Woods MD 111 [facility], [address] [phone] 04/24/2024 9:00 EST Appointment [facility] Radiology CT Outpatient - [address] [id number] 04/24/2024 11:00 EST Appointment [facility] Breast Imaging - [address] [phone] 04/27/2024 12:00 EST Appointment [facility] Hematology & Oncology - [address] 067[address] 05/02/2024 15:00 EST Telemedicine [facility] Hematology & Oncology - [address] [phone] Alisson Carreon MD [address] [place] [address], Level 2 [place] [phone] 05/04/2024 10:15 EST Ancillary Procedure [facility] Cardiology [place] [place] [address] 05/04/2024 11:30 EST Appointment [facility] Hematology & Oncology - [address] [phone] 05/04/2024 12:00 EST Appointment [facility] Hematology & Oncology - [address] 804661 06/12/2024 13:00 EST Appointment [facility] Radiology CT - [address] [phone] documented as of this encounter Procedures Procedure Name Priority Date/Time Associated Diagnosis Comments VITAMIN D (25,OH) Routine 08/31/2022 11: 48 EDT Osteopenia of necks of both femurs Metastatic breast cancer (HCC-CMS) (HCC) (HCC-CMS) CA 27.29 Routine 08/31/2022 11:48 EDT Osteopenia of necks of both femurs Metastatic breast cancer (HCC-CMS) (HCC) (HCC-CMS) COMPLETE BLOOD COUNT AND DIFFERENTIAL STAT 08/31/2022 11:48 EDT Metastatic breast cancer (HCC-CMS) (HCC) (HCC-CMS) COMPREHENSIVE METABOLIC PANEL (CMP) STAT 08/31/2022 11:48 EDT Metastatic breast cancer (HCC-CMS) (HCC) (HCC-CMS) documented in this encounter Results * (ABNORMAL) VITAMIN D (25,OH) (08/31/2022 11:48 EDT) 25OH Vitamin D Tot 106(H) 30 - 100 ng/mL 08/31/2022 13:40 EDT [facility] Comment: Vitamin D 25,OH Interpretive Ranges: Deficiency: ??<10.0 ng/mL Insufficiency: ??10.0 - 30.0 ng/mL Sufficiency: ??30.0 - 100.0 ng/mL Toxicity: ??>100.0 ng/mL Blood VENOUS BLOOD / Unknown Venipuncture / Unknown 08/31/2022 11:48 EDT 08/31/2022 11:48 EDT Augustina Colin MD PhD CHEMISTRY & BLOOD GA S ORDERABLES [facility] [address] [place] [address] * (ABNORMAL) CA 27.29 (08/31/2022 11:48 EDT) CA 27.29 69.1(H) <38.0 U/mL 09/01/2022 8:47 [facility] Comment: NOTE: Serum CA 27.29 concentration should not be interpreted as absolute evidence for the presence or absence of malignant disease. Assayed on Siemens [employer] XPT using chemiluminescent technology. ??Values obtained by using different assay methods cannot be used interchangeably. Blood VENOUS BLOOD / Unknown Venipuncture / Unknown 08/31/2022 11:48 EDT 08/31/2022 11:48 EDT Augustina Colin MD PhD CHEMISTRY & BLOOD GA S ORDERABLES [facility] [address] [place] [address] * (ABNORMAL) COMPREHENSIVE METABOLIC PANEL (CMP) (08/31/2022 11:48 EDT) Sodium 139 136 - 145 mmol/L 08/31/2022 12:51 [facility] Potassium 4.2 3.5 - 5.0 mmol/L 08/31/2022 12:51 [facility] Chloride 109 96 - 110 mmol/L 08/31/2022 12:51 [facility] CO2 Total 23 22 - 32 mmol/L 08/31/2022 12:51 [facility] Glucose 105(H) 70 - 100 mg/dL 08/31/2022 12:51 [facility] BUN 18 10 - 26 mg/dL 08/31/2022 12:51 [facility] Creatinine 0.58 0.52 - 1.04 mg/dL 08/31/2022 12:51 [facility] eGFR 103 >60 mL/min/1.7 3m2 08/31/2022 12:51 [facility] Total Protein 6.4 6.3 - 8.2 g/dL 08/31/2022 12:51 [facility] Albumin 3.6 3.4 - 4.9 g/dL 08/31/2022 12:51 [facility] Alkaline Phosphatase 174(H) 38 - 126 U/L 08/31/2022 12:51 [facility] AST 63(H) 15 - 46 U/L 08/31/2022 12:51 [facility] ALT 36(H) <35 U/L 08/31/2022 12:51 [facility] Bilirubin, Total 1.2 <1.4 mg/dL 09/01/19 12:51 [facility] Calcium 8.9 8.5 - 10.5 mg/dL 08/31/2022 12:51 [facility] Albumin/Globulin Ratio 1.3 1.0 - 2.5 08/31/2022 12:51 [facility] Anion Gap 7 5 - 14 08/31/2022 12:51 [facility] Blood VENOUS BLOOD / Unknown Venipuncture / Unknown 08/31/2022 11:48 EDT 08/31/2022 11:48 EDT Augustina oClin MD PhD CHEMISTRY & BLOOD GA S ORDERABLES Performing Organization Address City/State/[facility] Co de Phone Number [facility] [address] [place] [address] * (ABNORMAL) COMPLETE BLOOD COUNT AND DIFFERENTIAL (08/31/2022 11:48 EDT) WBC 4.02 4.00 - 12.40 K/cmm 08/31/2022 12:27 [facility] RBC 3.64(L) 3.86 - 5.04 M/cmm 08/31/2022 12:27 [facility] Hemoglobin 12.6 11.6 - 15.2 gm/dL 08/31/2022 12:27 [facility] HCT 37.2 34.9 - 44.4 % 08/31/2022 12:27 [facility] MCV 102(H) 81 - 98 fl 08/31/2022 12:27 [facility] MCH 34.6(H) 26.7 - 33.3 pg 08/31/2022 12:27 [facility] MCHC 33.9 32.1 - 35.9 gm/dL 08/31/2022 12:27 [facility] RDW-CV 19.3(H) <14.7 % 08/31/2022 12:27 [facility] RDW-SD 72.1(H) <50.4 fl 08/31/2022 12:27 [facility] PLT 119(L) 141 - 377 K/cmm 08/31/2022 12:27 [facility] MPV 11.4 9.5 - 12.7 fl 08/31/2022 12:27 [facility] % Neutrophils 56.8 % 08/31/2022 12:27 [facility] % Lymphocytes 25.6 % 08/31/2022 12:27 [facility] % Monocytes 15.4 % 08/31/2022 12:27 [facility] % Eosinophils 1.7 % 08/31/2022 12:27 [facility] % Basophils 0.5 % 08/31/2022 12:27 [facility] % Immature Grans 0.0 % 09/01/19 12:27 [facility] Absolute Neutrophils 2.28 2.20 - 8.85 K/cmm 08/31/2022 12:27 [facility] Absolute Lymphocytes 1.03(L) 1.09 - 3.30 K/cmm 08/31/2022 12:27 [facility] Absolute Monocytes 0.62 0.10 - 0.80 K/cmm 08/31/2022 12:27 [facility] Absolute Eosinophils 0.07 0.03 - 0.61 K/cmm 08/31/2022 12:27 [facility] ABS Basophils 0.02 0.01 - 0.11 K/cmm 08/31/2022 12:27 [facility] Absolute Immature Grans 0.00 0.00 - 0.06 K/cmm 08/31/2022 12:27 EDT [facility] Type of Differential: Auto 08/31/2022 12:27 EDT [facility] Blood VENOUS BLOOD / Unknown Venipuncture / Unknown 08/31/2022 11:48 EDT 08/31/2022 11:48 EDT Augustina Colin MD PhD PACKAGES & DNA PROBE ORDERABLES [facility] [address] [place] [address] documented in this encounter Visit Diagnoses Diagnosis Metastatic breast cancer Osteopenia of necks of both femurs documented in this encounter Care Teams Senior Physical Therapist Relationship Specialty Start Date End Date Linda Blancas MD [facility] [address] [place] [address] PCP - General 01/06/11 Adolfo Carreno MD [address] [place] [phone] General Surgery 04/26/19 Augustina Colin MD PhD [address] [place] [phone] Medical Oncology 04/26/19 documented as of this encounter
--- OUTSIDE RECORDS SUMMARY | 2024-03-20 14:46 | XMS_ITS | Encounter Summary ---
Author Organization [facility] Address [address] [place] [address] Care Team Providers Care Search Engine Optimization Consultant Name Role Phone Linda Blancas MD Primary Care Provider [phone] Adolfo Carreno MD Unavailable [phone] Augustina Colin MD PhD Unavailable Unavailable Reason for Referral * Radiology Services (Routine/Next Available) - Authorization Not Required Specialty Diagnoses / Procedures Referred By [facility] t Referred To Contact Nuclear Medicine Diagnoses Metastatic breast cancer Metastasis to bone (HCC-CMS) Procedures NM BONE WHOLE BODY Nadeen Blood PA-C [address] [place] [phone] [facility] Referral ID Status Reason Start Date Expiration Date Visits Requested Visits Authorized [id number] Authorization Not Required 09/08/2022 1 1 Encounter Details Date Type Department Care Team (Late st Contact Info) Description 09/08/2022 Orders Only [facility] Hematology & Oncology - [address] [phone] Nadeen Blood PA-C [address] [place] [phone] Metastatic breast cancer (HCC-CMS) (HCC) (HCC-CMS) (Primary Dx); Metastasis to bone (HCC-CMS) [...] Appointment [facility] Interventional Radiology Unit [address] [place] [address] 04/02/2024 15:15 EDT Office Visit [facility] Surgical [facility] - [facility] [address] [place], [place] [address] Adolfo Carreno MD 111 [facility], Level 2 [place] [phone] 04/05/2024 9:30 EDT Telemedicine [facility] - [facility] Palliative Care Services [address] [place], [place] [address] Chichi Woods MD [address] [place] [address] [address] [place] [phone] 04/11/2024 15:00 EDT Telemedicine [facility] Hematology & Oncology [address] [phone] Alisson Carreon MD [address] [place] [address], Level [address] [place] [phone] 04/13/2024 13:30 EDT Appointment [facility] Hematology & Oncology [address] [phone] 04/13/2024 14:00 EDT Appointment [facility] Hematology & Oncology [address] [address] 04/16/2024 10:00 EST Telemedicine [facility] Palliative Care Services [address] [place] [phone] Chichi Woods MD [address] [place] [phone] 04/24/2024 9:[address] [facility] Radiology CT Outpatient - [address] [id number] 04/24/2024 11:00 EST Appointment [facility] Breast Imaging - [address] 247301 04/27/2024 12:00 EST Appointment [facility] Hematology & Oncology - [address] [phone] 05/02/2024 15:00 EST Telemedicine [facility] Hematology & Oncology - [address] 157641 Alisson Carreon MD 111 [facility], Level [address] [place] [phone] 05/04/2024 10:15 EST Ancillary Procedure [facility] Cardiology - [address] [place] [address] 05/04/2024 11:30 EST Appointment [facility] Hematology & Oncology - [address] [phone] 05/04/2024 12:00 EST Appointment [facility] Hematology & Oncology [address] [phone] 06/12/2024 13:[address] [facility] Radiology CT - [address] [phone] documented as of this encounter Results * [...] this encounter Visit Diagnoses Diagnosis Metastatic breast cancer- Primary Metastasis to bone (HCC-CMS) Secondary malignant neoplasm of bone and bone marrow Primary malignant neoplasm of breast with metastasis (HCC-CMS) Metastasis to bone (HCC-CMS) Secondary malignant neoplasm of bone and bone marrow documented in this encounter Care Teams Search Engine Optimization Consultant Relationship Specialty Start Date End Date Linda Blancas MD [address] [place] [address] 30 [place] [address] PCP - General 01/06/11 Adolfo Carreno MD [address] [place] [phone] General Surgery 04/26/19 Augustina Colin MD PhD [address] [place] [phone] Medical Oncology 04/26/19 documented as of this encounter
--- OUTSIDE RECORDS SUMMARY | 2024-03-20 14:46 | XMS_ITS | Encounter Summary ---
Author Organization [facility] Address [address] [place] [address] Care Team Providers Care Vessel Engineer Name Role Phone Linda Blancas MD Primary Care Provider [phone] Adolfo Carreno MD Unavailable [phone] Augustina Colin MD PhD Unavailable Unavailable Reason for Visit * Reason Onset Date Comments Appointment Related 09/02/2022 Encounter Details Date Type Department Care Team (Late st Contact Info) Description 09/02/2022 Telephone [facility] [address] [place], [place] [phone] Augustina Colin, PhD Appointment Related Social History [...] * Telephone Encounter - Abraham Mendez - 09/02/2022 0854 EDT Screening Questions prior to Med Release [...] Appointment [facility] Interventional Radiology Unit [address] [place] [address] [phone] 04/02/2024 15:15 EDT Office Visit [facility] Surgical Oncology - [facility] [address] [place], [place] [phone] Adolfo Carreno MD [address] [facility], Level [address] [place] [address] 04/05/2024 9:30 EDT Telemedicine [facility] - [facility] Palliative Care Services [address] [place], [place] [phone] Chichi Woods MD [address] [phone] 04/11/2024 15:00 EDT Telemedicine [facility] Hematology & Oncology - [address] 130121 Alissno Carreon MD [address] [place] [address], [facility] [address] [place] [phone] 04/13/2024 13:30 EDT Appointment [facility] Hematology & Oncology - [address] [phone] 04/13/2024 14:00 EDT Appointment [facility] Hematology & Oncology [address] 179011 04/16/2024 10:00 EST Telemedicine [facility] - [facility] Palliative Care Services [address] [place] [address] 072991 Chichi Woods MD [address] [place] [phone] 04/24/2024 9:00 EST Appointment [facility] Radiology CT Outpatient - [address] [id number] 04/24/2024 11:00 EST Appointment [facility] Breast Imaging - [facility] [address] 376291 04/27/2024 12:00 EST Appointment [facility] Hematology & Oncology - [address] 375101 05/02/2024 15:00 EST Telemedicine [facility] Hematology & Oncology - [address] [phone] Alisson Carreon MD [address] [place] [address], [facility] [address] [place] [phone] 05/04/2024 10:15 EST Ancillary Procedure [facility] Cardiology - [address] [place] [address] 05/04/2024 11:30 EST Appointment [facility] Hematology & Oncology [address] [address] 05/04/2024 12:00 EST Appointment [facility] Hematology & Oncology [address] [address] 06/12/2024 13:00 EST Appointment [facility] Radiology CT - [address] [phone] documented as of this encounter Visit Diagnoses Not on filedocumented in this encounter Care Teams Vessel Engineer Relationship Specialty Start Date End Date Linda Blancas MD [facility] [address] [place] [address] PCP - General 01/06/11 Adolfo Carreno MD [address] [place] [phone] General Surgery 04/26/19 Augustina Colin MD PhD [address] [place] [address] [address] [place] [address] Medical Oncology 04/26/19 documented as of this encounter
--- OUTSIDE RECORDS SUMMARY | 2024-03-20 14:46 | XMS_ITS | Encounter Summary ---
Author Organization [facility] Address [address] [place] [address] Care Team Providers Care Librarian School Name Role Phone Linda Blancas MD Primary Care Provider [phone] Adolfo Carreno MD Unavailable [phone] Augustina Colin MD PhD Unavailable Unavailable Reason for Visit * Reason Comments Follow-up Encounter Details Date Type Department Care Team (Late st Contact Info) Description 10/12/2022 8:15 EDT Office Visit [facility] Ophthalmology - [address] [phone] Tylor Bonilla MD 111 [facility], Level 5 [place] [address] Social History Tobacco Use Types [...] Progress Notes * Tylor Bonilla MD - 10/12/2022 0815 EDT Chief Complaint Patient presents with ??? Follow-up Comments Pt with retinal tears s/p laser left eye. No new floaters or flashes. She is noticing redness of both eyes recently which she feels may be allergies. She is noticing at night when she is working on her tablet she will notice blur and tiredness of both. Using drops for redness in the morning. HPI Location: Both eyes Pain: 0 - No pain Quality: Blurry Severity: Duration: Weeks Timing: Constant Lasts: Continuous Context: Increased redness both eyes Modifying factors: She feels it may be related to allergies Associated Signs & Symptoms: Vision is stable, very few floaters. no flashes and no eye pain today Visual Fluctuations: Floaters Attestation: Base Eye Exam Visual Acuity (Snellen - Linear) Right Left Dist sc 20/25 Near sc J2 Tonometry (Applanation, 8:29) Right Left Pressure 9 10 Extraocular Movement Right Left Full Full Neuro/Psych Oriented x3: Yes Mood/Affect: Normal Dilation Both eyes: Tropicamide 1%, Phenylephrine 2.5% @ 8:29 Slit Lamp and Fundus Exam Slit Lamp Exam Right Left Lids/Lashes Normal Normal Conjunctiva/Sclera White and quiet White and quiet Cornea Clear, Lasik flaps Clear, Lasik flaps Anterior Chamber Deep and quiet Deep and quiet Iris Dilated Dilated Lens Clear Clear Anterior Vitreous Posterior vitreous detachment Posterior vitreous detachment, Hemorrhage Fundus Exam Right Left Disc Healthy Rim Healthy Rim C/D Ratio 0.3 0.3 Macula Healthy Healthy Vessels Healthy Healthy Periphery Retina attached., Inferior-temporal Lattice degeneration Retina attached. Retinal tear at11 and 1:30, well surrounded by laser scars; Inferior Lattice degeneration Please refer to large retinal drawing. DIAGNOSES: 1. Retinal tear of left eye Assessment Retinal tear(s) left eye Two??retinal??tear??(11 and 1:30) without detachment surrounded by laser??retinopexy scars No new tears. ?? Posterior vitreous detachment both eyes Longstanding right eye. June 2022 left eye, with vitreal heme. Retina attached both eyes ?? Lattice degeneration both eyes No tears or traction right eye Monitor ?? Retinal detachment warnings discussed Return in 1 year/PRN I have reviewed the past medical, family, social and surgical history. I have reviewed the meds, allergies, and problem list. I performed my own HPI and reviewed the ROS. I personally completed the exam. The patient was instructed to call our office or go to emergency room if worse vision, worse symptoms, or new/other concerns arise. Tylor Bonilla MD I am scribing for Dr. Tylor Bonilla MD while he is personally performing the service. JOSH Omer (Scribe) documented in this encounter Plan of Treatment Upcoming Encounters Date Type Department Care Team (Late st Contact Info) Description 04/02/2024 10:30 EDT Appointment [facility] Interventional Radiology Unit [address] [place] [address] [phone] 04/02/2024 15:15 EDT Office Visit [facility] Surgical Oncology - [address] [phone] Adolfo Carreno MD 111 [facility], Level 2 [place] [phone] 04/05/2024 9:30 EDT Telemedicine [facility] - [facility] Palliative Care Services [address] [place], [place] [phone] Chichi Woods MD 111 [facility], [address] [phone] 04/11/2024 15:00 EDT Telemedicine [facility] Hematology & Oncology - [address] [phone] Alisson Carreon MD [address] [place] [address] 2 [place] [phone] 04/13/2024 13:30 EDT Appointment [facility] Hematology & Oncology - [address] [phone] 04/13/2024 14:00 EDT Appointment [facility] Hematology & Oncology [address] 154411 04/16/2024 10:00 EST Telemedicine [facility] - [facility] Palliative Care Services [address] [place] [address] Chichi Woods MD [address] [place] [phone] 04/24/2024 9:00 EST Appointment [facility] Radiology CT Outpatient - [address] 530771 04/24/2024 11:00 EST Appointment [facility] Breast Imaging - [address] [id number] 04/27/2024 12:00 EST Appointment [facility] Hematology & Oncology - [address] 109451 05/02/2024 15:00 EST Telemedicine [facility] Hematology & Oncology [address] 033001 Alisson Carreon MD [address] [place] [address], [facility] 2 [place] [phone] 05/04/2024 10:15 EST Ancillary Procedure [facility] Cardiology - [address] [place] [address] 05/04/2024 11:30 EST Appointment [facility] Hematology & Oncology [address] [phone] 05/04/2024 12:00 EST Appointment [facility] Hematology & Oncology [address] 191281 06/12/2024 13:00 EST Appointment [facility] Radiology CT - [address] [phone] documented as of this encounter Visit Diagnoses Diagnosis Retinal tear of left eye- Primary documented in this encounter Eye Exam Visual Acuity (Snellen - Linear) Right eye Left eye Dist sc 20/25 Near sc J2 Tonometry (Applanation, 8:29) Right eye Left eye Pressure 9 10 Extraocular Movement Right eye Left eye Full Full Neuro/Psych Oriented x3: Yes Mood/Affect: Normal Dilation Both eyes: Tropicamide 1%, P henylephrine 2.5% @ 8:29 Slit Lamp Exam Right eye Left eye Lids/Lashes Normal Normal Conjunctiva/Sclera White and quiet White and marisabel et Cornea Clear, Lasik flaps Clear, Lasik flaps Anterior Chamber Deep and quiet Deep and quiet Iris Dilated Dilated Lens Clear Clear Anterior Vitreous Posterior vitreous detachment Posterior vitreous detachment, Hemorrhage Fundus Exam Right eye Left eye Disc Healthy Rim Healthy Rim C/D Ratio 0.3 0.3 Macula Healthy Healthy Vessels Healthy Healthy Periphery Retina attached., In ferior-temporal Lattice degeneration Retina attached. Retinal tear at 11 and 1:30, well surrounded by laser scars; Inferior Lattice degeneration Care Teams Librarian School Relationship Specialty Start Date End Date Linda Blancas MD [facility] [address] [place] [address] PCP - General 01/06/11 Adolfo Carreno MD [address] [place] [address], [facility], Level [address] [place] [phone] General Surgery 04/26/19 Augustina Colin MD PhD [address] [place] [address] 2 [place] [phone] Medical Oncology 04/26/19 documented as of this encounter
--- OUTSIDE RECORDS SUMMARY | 2024-03-20 14:46 | XMS_ITS | Encounter Summary ---
Author Organization [facility] Address [address] [place] [address] Care Team Providers Care Machine Lacer Name Role Phone Linda Blancas MD Primary Care Provider [phone] Adolfo Carreno MD Unavailable [phone] Augustina Colin MD PhD Unavailable Unavailable Encounter Details Date Type Department Care Team (Late st Contact Info) Description 11/12/2022 Specialty Pharmacy [facility] - [facility] [address] [place], [place] 0[address] Allen Day, [facility] Social History Tobacco Use Types [...] as of this encounter Progress Notes * Ingrid Goldman - 11/12/2022 1054 EDT Specialty Pharmacy Documentation Medication: Capecitabine Clinic: Onc Reason for Encounter: Outreach Notes: Refill requested Follow up date: 11/15/22 Follow up reason: Outreach documented in this encounter Plan of Treatment Upcoming Encounters Date Type Department Care Team (Late st Contact Info) Description 04/02/2024 10:30 EDT Appointment [facility] Interventional Radiology Unit [address] [place] [address] [phone] 04/02/2024 15:15 EDT Office Visit [facility] Surgical Oncology - [address] [phone] Adolfo Carreno MD [address] [place] [address] 2 [place] [phone] 04/05/2024 9:30 EDT Telemedicine Health system - [facility] Palliative Care Services [address] [place], [place] [phone] Chichi Woods MD [address] [place] [phone] 04/11/2024 15:00 EDT Telemedicine [facility] Hematology & Oncology - [address] [phone] Alisson Carreon MD [address] [place] [address] 2 [place] [phone] 04/13/2024 13:30 EDT Appointment [facility] Hematology & Oncology - [address] 040031 04/13/2024 14:00 EDT Appointment [facility] Hematology & Oncology - [address] [address] 04/16/2024 10:00 EST Telemedicine Health system - [facility] Palliative Care Services [address] [place] [address] [phone] Chichi Woods MD [address] [place] [phone] 04/24/2024 9:00 EST Appointment [facility] Radiology CT Outpatient - [address] [address] 04/24/2024 11:00 EST Appointment [facility] Breast Imaging - [facility] [place] [address] [place], [place] [phone] 04/27/2024 12:00 EST Appointment [facility] Hematology & Oncology - [address] [phone] 05/02/2024 15:00 EST Telemedicine [facility] Hematology & Oncology [address] 397011 Alisson Carreon MD [address] [place] [address], [facility] 2 [place] [phone] 05/04/2024 10:15 EST Ancillary Procedure [facility] Cardiology - [place] [address] 05/04/2024 11:30 EST Appointment [facility] Hematology & Oncology - [address] [phone] 05/04/2024 12:00 EST Appointment [facility] Hematology & Oncology - [address] [address] 06/12/2024 13:00 [facility] Radiology CT - [address] [address] documented as of this encounter Visit Diagnoses Not on filedocumented in this encounter Care Teams Machine Lacer Relationship Specialty Start Date End Date Linda Blancas MD [facility] [address] [place] [address] PCP - General 01/06/11 Adolfo Carreno MD [address] [place] [phone] General Surgery 04/26/19 Augustina Colin MD PhD [address] [place] [address] 2 [place] [address] Medical Oncology 04/26/19 documented as of this encounter
--- OUTSIDE RECORDS SUMMARY | 2024-03-20 14:46 | XMS_ITS | Encounter Summary ---
Author Organization [facility] Address [address] [place] [address] Care Team Providers Care Adjunct Professor Of English Name Role Phone Linda Blancas MD Primary Care Provider [phone] Adolfo Carreno MD Unavailable [phone] Augustina Colin MD PhD Unavailable Unavailable Reason for Referral * Prior Authorization (Urgent) - Authorization Not Required Specialty Diagnoses / Procedures Referred By Contac t Referred To Contact Infusion Therapy Diagnoses Malignant neoplasm of female breast, unspecified estrogen receptor status, unspecified laterality, unspecified site of breast ([facility]) Augustina Colin MD PhD [facility] Adult [facility]fusion [facility] 4 [address] [place] [address] Referral ID Status Reason Start Date Expiration Date Visits Requested Visits Authorized [id number] Authorization Not Required Specialty Services Required 3 3 6 Question Answer Is this appt for transfusion, medication, test or injection? Infusion How many infusions need to be ordered for appt? 1 Infusion Name Other Please specify: Zometa Infusion Dose 4mg What is the infusion frequency? Q3 month Is this the first dose of infusion(s)? No Have orders been place for this appt? (i.e.: Blood Transfusion Order Set, Therapy Plan, Lab Orders, Supportive Plan, Etc) Yes Reason for Visit * Prior Authorization (Urgent) - Authorization Not Required Specialty Diagnoses / Procedures Referred By Contac t Referred To Contact Infusion Therapy Diagnoses Malignant neoplasm of female breast, unspecified estrogen receptor status, unspecified laterality, unspecified site of breast ([facility]) Augustina Colin MD PhD [facility]fusion [facility] [address] [place] [address] Referral ID Status Reason Start Date Expiration Date Visits Requested Visits Authorized [id number] Authorization Not Required Specialty Services Required 3 3 6 Encounter Details Date Type Department Care Team (Latest Contact Info) Description 09/02/2022 8:53 EDT - 09/02/2022 23:59 EDT Hospital Encounter [facility] [address] [place], [place] [phone] Malignant neoplasm of female breast, unspecified estrogen receptor status, unspecified laterality, unspecified site of breast ([facility]) (Primary Dx); Osteopenia of necks of both femurs Discharge [...] Sign Reading Time Taken Comments Blood Pressure 106/65 09/02/2022 1125 EDT Pulse - - Temperature 36.4 ??C (97.5 ??F) 09/02/2022 1125 EDT Respiratory Rate 16 09/02/2022 1125 EDT Oxygen Saturation 98% 09/02/2022 1125 EDT Inhaled Oxygen Concentration - - [...] Tablets by mouth as needed. 12/07/2023 mv-mn/C/glutamin/lysin/h [id number] (AIR[place]ORNE, ASCORBATE SODIUM, ORAL) Take by mouth [...] Code Departure Means Destination Home or Self Fpc documented in this encounter Progress Notes * Cher Alaniz RN - 09/02/2022 1130 EDT Sunshine Pleitez arrived to [address] Center for Zometa infusion related to ICD 10 C50.919. Identification verified verbally and on patient wristband. Signs and symptoms of adverse infusion reaction reviewed with patient. PIV was placed by RN per protocol. Patient tolerated well. Premedications: none Main Medication and dose: 4 mg Zometa 1147: Infusion started. 1227: Infusion completed. Patient tolerated without s/s of adverse reaction. Patient Education Topic: Zometa Method: Handout Taught to: Family Barriers: Desire/Motivation to Learn Outcomes: verbalized understanding CHER ALANIZ RN Patient educated to call if complications [...] Info) Description 04/02/2024 10:30 EDT Appointment [facility] Interventional Radiology Unit [address] [place] [phone] 04/02/2024 15:15 EDT Office Visit [facility] Surgical Oncology - [facility] [address] [place], [place] 255681 Adolfo Carreno MD 111 [facility], Level 2 [place] [phone] 04/05/2024 9:30 EDT Telemedicine [facility] Palliative Care Services [address] [place], [place] 7735[address] Chichi Woods MD [address] [place] [address] 262 [place] [phone] 04/11/2024 15:00 EDT Telemedicine [facility] Hematology & Oncology - [address] [phone] Alisson Carreon MD [address] [place] [address] 2 [place] [phone] 04/13/2024 13:30 EDT Appointment [facility] Hematology & Oncology - [address] [phone] 04/13/2024 14:00 EDT Appointment [facility] Hematology & Oncology [address] [phone] 04/16/2024 10:[address] [facility] - [facility] Palliative Care Services [address] [place] [address] [phone] Chichi Woods MD [address] [place] [phone] 04/24/2024 9:00 EST Appointment [facility] Radiology CT Outpatient - [address] 655211 04/24/2024 11:00 EST Appointment [facility] Breast Imaging - [address] 450981 04/27/2024 12:00 EST Appointment [facility] Hematology & Oncology - [address] 198271 05/02/2024 15:00 EST Telemedicine [facility] Hematology & Oncology - [address] 565121 Alisson Carreon MD [address] [place] [address] 2 [place] [phone] 05/04/2024 10:15 EST Ancillary Procedure [facility] Cardiology - [address] [place] [address] 05/04/2024 11:30 EST Appointment [facility] Hematology & Oncology - [address] 844681 05/04/2024 12:00 EST Appointment [facility] Hematology & Oncology - [address] 704131 06/12/2024 13:00 EST Appointment [facility] Radiology CT - [address] [phone] Scheduled Referrals Name Type Priority Associated Diagnoses Orde r Schedule AMB CONS/FOLLOW UP [facility] Outpatient Referral Urgent Malignant neoplasm of female breast, unspecified estrogen receptor status, unspecified laterality, unspecified site of breast ([facility]) 1 Occurrences starting 09/02/2022 until 09/02/2022 documented as of this encounter Visit Diagnoses Diagnosis Malignant neoplasm of female breast, unspecified estrogen receptor status, unspecified laterality, unspecified site of breast ([facility])- Primary Osteopenia of necks of both femurs documented in this encounter Administered Medications Inactive Administered Medications - up to 3 most recent administrations Medication Order MAR Action Action Date Dose Rate Site sodium chloride 0.9 % (NS) infusion at 100 mL/hr, 250 mL, intravenous, CONTINUOUS, Starting on Tue09/02/22 at 0930, Until Tue09/03/22 at 1146, Routine New Bag 09/02/2022 11:47 EDT 250 mL 100 mL/hr zoledronic acid (ZOMETA) 4 mg/100 mL IVPB 4 mg 4 mg, intravenous, Administer over 20 Minutes, NOW X1, 1 dose, On Tue09/02/22 at 1130, Routine New Bag 09/02/2022 11:54 EDT 4 mg documented in this encounter Orders Medications Ordered That Vj ht Not Have Been Administered Count Last Ordered Date First Ordered Date alteplase (CATHFLO ACTIVASE) injection 2 mg 1 09/02/2022 diphenhydrAMINE (BENADRYL) injection 50 mg 1 09/02/2022 EPINEPHrine (ADRENALIN) injection 0.3 mg 1 09/02/2022 heparin (PF) lock flush 500 Units 1 023 methylPREDNISolone sod suc(P F) (SOLU-MEDROL) injection 40 mg 1 09/02/2022 sodium chloride 0.9 % (flush) flush 20 mL 1 09/02/2022 Nursing Count Last Ordered Date First Orde red Date INFORMED CONSENT 1 09/02/2022 documented in this encounter Care Teams Adjunct Professor Of English Relationship Specialty Start Date End Date Linda Blancas MD [facility] [address] [place] [address] PCP - General 01/06/11 Adolfo Carreno MD [address] [phone] General Surgery 04/26/19 Augustina Colin MD PhD [address] [phone] Medical Oncology 04/26/19 documented as of this encounter
--- OUTSIDE RECORDS SUMMARY | 2024-03-20 14:46 | XMS_ITS | Encounter Summary ---
Author Organization [facility] Address [address] [place] [address] Care Team Providers Care Internship Coordinator Name Role Phone Linda Blancas MD Primary Care Provider [phone] Adolfo Carreno MD Unavailable [phone] Augustina Colin MD PhD Unavailable Unavailable Encounter Details Date Type Department Care Team (Late st Contact Info) Description 09/08/2022 Orders Only [facility] Cancer Center Hematology & Oncology - [facility] [address] [place] [address] Augustina Colin, PhD Social History Tobacco Use [...] [facility] Interventional Radiology Unit [address] [place] [address] [phone] 04/02/2024 15:15 EDT Office Visit [facility] Surgical Oncology - [address] [phone] Adolfo Carreno MD [address] [place] [address] [phone] 04/05/2024 9:30 EDT Telemedicine [facility] - [facility] Palliative Care Services [address] [place] [address] [phone] Chichi Woods MD [address] [place] [address] [phone] 04/11/2024 15:00 EDT Telemedicine [facility] Hematology & Oncology [address] 550871 Alisson Carreon MD [address] [place] [address] [phone] 04/13/2024 13:30 EDT Appointment [facility] Hematology & Oncology [address] [phone] 04/13/2024 14:00 EDT Appointment [facility] Hematology & Oncology [address] [phone] 04/16/2024 10:00 EST Telemedicine [facility] - [facility] Palliative Care Services [address] [place] [address] [phone] Chichi Woods MD [address] [place] [address], [address] [phone] 04/24/2024 9:00 EST Appointment [facility] Radiology CT Outpatient - [address] [id number] 04/24/2024 11:00 EST Appointment [facility] Breast Imaging - [facility] [place] [address] [place], [place] 806191 04/27/2024 12:00 EST Appointment [facility] Hematology & Oncology - [address] [phone] 05/02/2024 15:00 EST Telemedicine [facility] Hematology & Oncology - [address] [address] Alisson Carreon MD [address] [place] [address], [facility], Level 2 [place] [phone] 05/04/2024 10:15 EST Ancillary Procedure [facility] Cardiology - [address] [place], [place] [phone] 05/04/2024 11:30 EST Appointment [facility] Hematology & Oncology - [address] [phone] 05/04/2024 12:00 EST Appointment [facility] Hematology & Oncology [address] [phone] 06/12/2024 13:00 EST Appointment [facility] Radiology CT - [address] [phone] documented as of this encounter Visit Diagnoses Not on filedocumented in this encounter Care Teams Internship Coordinator Relationship Specialty Start Date End Date Linda Blancas MD [facility] [address] [place] [address] PCP - General 01/06/11 Adolfo Carreno MD [address] [place] [address], [facility] 2 [place] [phone] General Surgery 04/26/19 Augustina Colin MD PhD [address] [place] [address], [facility] 2 [place] [phone] Medical Oncology 04/26/19 documented as of this encounter
--- OUTSIDE RECORDS SUMMARY | 2024-03-20 14:46 | XMS_ITS | Encounter Summary ---
Author Organization [facility] Address [address] [place] [address] Care Team Providers Care Security Tech Name Role Phone Linda Blancas MD Primary Care Provider [phone] Adolfo Carreno MD Unavailable [phone] Augustina Colin MD PhD Unavailable Unavailable Encounter Details Date Type Department Care Team (Latest Contact Info) Description 11/25/2022 8:30 EDT - 11/25/2022 10:40 EDT Hospital Encounter [facility] Cancer Center Hematology & Oncology - [facility] [place] [address] [place], [place] [phone] Osteopenia of necks of both femurs; Primary [...] Tablets by mouth as needed. 12/07/2023 mv-mn/C/glutamin/lysin/h [id number] (AIRBORNE, ASCORBATE SODIUM, ORAL) Take by mouth [...] documented in this encounter Progress Notes * Jessica Humphreys LPN - 11/25/2022 0830 EDT Pt arrived for peripheral lab draw via IV insertion. 24g IV placed into right anterior forearm. Labs drawn and sent. IV flushed and capped. Mesh sleeve applied to site. Pt to waiting room. I was supervised by Dr. Rolle who was present and immediately available in the office suite. JESSICA HUMPHREYS LPN 11/25/2022 8:49 documented in this encounter Miscellaneous Notes * Addendum Note - Nadeen Gonzalez - 11/25/2022 0830 EDTEncounter addended by: Nadeen Gonzalez on: 12/19/2022 12:20 Actions taken: Charge Capture section accepted documented in this encounter Plan of Treatment Upcoming Encounters Date Type Department Care Team (Late st Contact Info) Description 04/02/2024 10:30 EDT Appointment [facility] Interventional Radiology Unit [address] [place] [address] [phone] 04/02/2024 15:15 EDT Office Visit [facility] Surgical Oncology - [address] [phone] Adolfo Carreno MD 111 [facility], Level [address] [place] [phone] 04/05/2024 9:30 EDT Telemedicine [facility] - [facility] Palliative Care Services [address] [place] [address] [phone] Chichi Woods MD 111 [facility], [address] [phone] 04/11/2024 15:00 EDT Telemedicine [facility] Hematology & Oncology - [address] [phone] Alisson Carreon MD [address] [place] [address], [facility] 2 [place] [phone] 04/13/2024 13:30 EDT Appointment [facility] Hematology & Oncology - [address] [phone] 04/13/2024 14:00 EDT Appointment [facility] Hematology & Oncology - [address] [phone] 04/16/2024 10:00 EST Telemedicine [facility] - [facility] Palliative Care Services [address] [place] [address] Chichi Woods MD [address] [place] [address] [phone] 04/24/2024 9:00 EST Appointment [facility] Radiology CT Outpatient - [address] [id number] 04/24/2024 11:00 EST Appointment [facility] Breast Imaging - [facility] [address] [phone] 04/27/2024 12:00 EST Appointment [facility] Hematology & Oncology - [address] [phone] 05/02/2024 15:00 EST Telemedicine [facility] Hematology & Oncology - [address] 185321 Alisson Carreon MD [address] [place] [address], [facility] 2 [place] [phone] 05/04/2024 10:15 EST Ancillary Procedure [facility] Cardiology - [address] [place] [address] 05/04/2024 11:30 EST Appointment [facility] Hematology & Oncology [address] [address] 05/04/2024 12:00 EST Appointment [facility] Hematology & Oncology [address] [address] 06/12/2024 13:00 EST Appointment [facility] Radiology CT - [address] [address] documented as of this encounter Procedures Procedure Name Priority Date/Time Associated Diagnosis Comments VITAMIN D (25,OH) Routine 11/25/2022 8:3 7 EDT Osteopenia of necks of both femurs Primary malignant neoplasm of breast with metastasis (HCC-CMS) CA 27.29 Routine 11/25/2022 8:37 EDT Osteopenia of necks of both femurs Primary malignant neoplasm of breast with metastasis (HCC-CMS) COMPLETE BLOOD COUNT AND DIFFERENTIAL STAT 11/25/2022 8:37 EDT Primary malignant neoplasm of breast with metastasis (HCC-CMS) COMPREHENSIVE METABOLIC PANEL (CMP) STAT 11/25/2022 8:37 EDT Primary malignant neoplasm of breast with metastasis (HCC-CMS) documented in this encounter Results * (ABNORMAL) COMPREHENSIVE METABOLIC PANEL (CMP) (11/25/2022 8:37 EDT) Sodium 142 136 - 145 mmol/L 11/25/2022 9:24 EDT [facility] Potassium 3.9 3.5 - 5.0 mmol/L 11/25/2022 9:24 EDT [facility] Chloride 108 96 - 110 mmol/L 11/25/2022 9:24 EDT [facility] CO2 Total 19(L) 22 - 32 mmol/L 11/25/2022 9:24 EDT [facility] Glucose 126(H) 70 - 100 mg/dl 11/25/2022 9:24 [facility] BUN 20 10 - 26 mg/dL 11/25/2022 9:24 [facility] Creatinine 0.69 0.52 - 1.04 mg/dL 11/25/2022 9:24 [facility] eGFR 99 >60 mL/min/1.7 3m2 11/25/2022 9:24 [facility] Total Protein 6.9 6.3 - 8.2 g/dL 11/25/2022 9:24 [facility] Albumin 3.8 3.4 - 4.9 g/dL 11/25/2022 9:24 [facility] Alkaline Phosphatase 190(H) 38 - 126 U/L 11/25/2022 9:24 [facility] AST 60(H) 15 - 46 U/L 11/25/2022 9:24 [facility] ALT 33 <35 U/L 11/25/2022 9:24 [facility] Bilirubin, Total 1.1 <1.4 mg/dL 11/26/19 9:24 [facility] Calcium 9.2 8.5 - 10.5 mg/dL 11/25/2022 9:24 [facility] Albumin/Globulin Ratio 1.2 1.0 - 2.5 11/25/2022 9:24 [facility] Anion Gap 15(H) 5 - 14 mmol/L 11/25/2022 9:24 [facility] Blood VENOUS BLOOD / Unknown Venipuncture / Unknown 11/25/2022 8:37 EDT 11/25/2022 8:49 EDT Augustina Colin MD PhD CHEMISTRY & BLOOD GA S ORDERABLES [facility] [address] [place] [address] * (ABNORMAL) COMPLETE BLOOD COUNT AND DIFFERENTIAL (11/25/2022 8:37 EDT) WBC 5.06 4.00 - 12.40 K/cmm 11/25/2022 9:02 [facility] RBC 3.68(L) 3.86 - 5.04 M/cmm 11/25/2022 9:02 [facility] Hemoglobin 13.6 11.6 - 15.2 g/dL 11/25/2022 9:02 [facility] HCT 39.0 34.9 - 44.4 % 11/25/2022 9:02 [facility] MCV 106(H) 81 - 98 fL 11/25/2022 9:02 [facility] MCH 37.0(H) 26.7 - 33.3 pg 11/25/2022 9:02 [facility] MCHC 34.9 32.1 - 35.9 g/dL 11/25/2022 9:02 [facility] RDW-CV 16.8(H) <14.7 % 11/25/2022 9:02 [facility] RDW-SD 66.3(H) <50.4 fl 11/25/2022 9:02 [facility] PLT 153 141 - 377 K/cmm 11/25/2022 9:02 [facility] MPV 10.3 9.5 - 12.7 fL 11/25/2022 9:02 [facility] % Neutrophils 61.4 % 11/25/2022 9:02 [facility] % Lymphocytes 25.7 % 11/25/2022 9:02 [facility] % Monocytes 9.7 % 11/25/2022 9:02 [facility] % Eosinophils 2.2 % 11/25/2022 9:02 [facility] % Basophils 0.8 % 11/25/2022 9:02 [facility] % Immature Grans 0.2 % 11/26/19 9:02 [facility] Absolute Neutrophils 3.11 2.20 - 8.85 K/cmm 11/25/2022 9:02 EDT [facility] Absolute Lymphocytes 1.30 1.09 - 3.30 K/cmm 11/25/2022 9:02 EDT [facility] Absolute Monocytes 0.49 0.10 - 0.80 K/cmm 11/25/2022 9:02 T [facility] Absolute Eosinophils 0.11 0.03 - 0.61 K/cmm 11/25/2022 9:02 EDT [facility] ABS Basophils 0.04 0.01 - 0.11 K/cmm 11/25/2022 9:02 [facility] Absolute Immature Grans 0.01 0.00 - 0.06 K/cm 11/25/2022 9:02 [facility] Type of Differential: Auto 11/25/2022 9:02 [facility] Blood VENOUS BLOOD / Unknown Venipuncture / Unknown 11/25/2022 8:37 EDT 11/25/2022 8:49 EDT Augustina Colin MD PhD PACKAGES & DNA PROBE ORDERABLES [facility] [address] [place] [address] * (ABNORMAL) VITAMIN D (25,OH) (11/25/2022 8:37 EDT) 25OH Vitamin D Tot 104(H) 30 - 100 ng/mL 11/25/2022 11:40 EDT [facility] Comment: Vitamin D 25,OH Interpretive Ranges: Deficiency: ??<10.0 ng/mL Insufficiency: ??10.0 - 30.0 ng/mL Sufficiency: ??30.0 - 100.0 ng/mL Toxicity: ??>100.0 ng/mL Blood VENOUS BLOOD / Unknown Venipuncture / Unknown 11/25/2022 8:37 EDT 11/25/2022 8:49 EDT Augustina Colin MD PhD CHEMISTRY & BLOOD GA S ORDERABLES Performing Organization Address City/[facility]/ZIP Co de Phone Number [facility] [address] [place] [address] * (ABNORMAL) CA 27.29 (11/25/2022 8:37 EDT) CA 27.29 94.7(H) <38.0 U/mL 11/26/2022 11:23 EDT [facility] Comment: NOTE: Serum CA 27.29 concentration should not be interpreted as absolute evidence for the presence or absence of malignant disease. Assayed on [employer] XPT using chemiluminescent technology. ??Values obtained by using different assay methods cannot be used interchangeably. Blood VENOUS BLOOD / Unknown Venipuncture / Unknown 11/25/2022 8:37 EDT 11/25/2022 8:49 EDT Augustina Colin MD PhD CHEMISTRY & BLOOD GA S ORDERABLES Performing Organization Address City/[facility]/ZIP Co de Phone Number [facility] [address] [place] [address] documented in this encounter Visit Diagnoses Diagnosis Osteopenia of necks of both femurs Primary malignant neoplasm of breast with metastasis (HCC-CMS) documented in this encounter Care Teams Security Tech Relationship Specialty Start Date End Date Linda Blancas MD [facility] [address] [place] [address] PCP - General 01/06/11 Adolfo Carreno MD [address] [place] [phone] General Surgery 04/26/19 Augustina Colin MD PhD [address] [place] [phone] Medical Oncology 04/26/19 documented as of this encounter
--- OUTSIDE RECORDS SUMMARY | 2024-03-20 14:46 | XMS_ITS | Encounter Summary ---
Author Organization [facility] Address [address] [place] [address] Care Team Providers Care Spine Supervisor Name Role Phone Linda Blancas MD Primary Care Provider Adolfo Carreno MD Unavailable [phone] Augustina Colin MD PhD Unavailable Unavailable Reason for Referral * Radiology Services (Routine/Next Available) - Authorized Specialty Diagnoses / Procedures [facility] Referred To Contact Radiology Diagnoses Metastases to the liver (HCC-CMS) Procedures MR ABDOMEN W WO FILIBERTO Moya, David Rowley MD [address] [place] [phone] [facility] Referral ID Status Reason Start Date Expiration Date V isits Requested Visits Authorized [id number] Authorized 02/23/2023 08/22/2023 1 1 Reason for Visit * Reason Comments IR Procedure Follow-up Encounter Details Date Type Department Care Team (Late st Contact Info) Description 11/17/2022 9:30 EDT Telemedicine [facility] Interventional Radiology - [address] [phone] David Moya MD [address] [place], [place] [phone] Metastases to the liver (HCC-CMS) (Primary Dx) [...] Progress Notes * David Moya MD - 11/17/2022 0930 EDT Subjective: Patient ID: Sunshine Pleitez is an 62 y.o. female. Chief Complaint Patient presents with ??? IR Procedure Follow-up Type of visit: Televideo Medical oncologist: Augustina Colin [facility] 62-year-old female seen in follow-up after liver directed therapy for breast cancer liver metastases. Patient with a history of metastatic breast cancer involving the mediastinum, cervical lymph nodes, lungs, liver, and bones who developed liver specific disease progression in the fall 2021. Patient is having significant side effects from chemotherapy including eunm-gqq-mduc symptoms and desired to decrease the dose. Patient with multifocal, ygpp-knq-[id number] tumors throughout both lobes of her liver. Patient underwent conventional dose, lobar transarterial radioembolization to the right lobe on 04/08/2022, followed by the left lobe on 05/14/2022. She had significant postembolization syndrome from the right lobe treatment which is now resolved. Patient feels well, without specific complaints. MRI 11/16/2022 reveals resolution of the majority of the lesions in the liver, with a new 7 mm focus of restricted diffusion in the right lobe, segment 8, which is suspicious for viable tumor. MRI alsorevealed cholelithiasis. No recent labs. Patient Active Problem List Diagnosis ??? Papanicolaou [...] issues currently 08/25/20 ??? 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 [...] [place] no complications ??? BREAST SURGERY 08/2018 car and yard supervisor placed right breast - [place] no complications ??? CARPAL TUNNEL RELEASE 200705/07/2019 beir block - no complications ??? FOOT SURGERY 05/2021 right big toe fused, right little toe screw ??? LIPOMA RESECTION 200005/07/2019 [place] no complications ??? MASTECTOMY Right ??? [place] INSJ/RPLCMT BREAST IMPLANT Feb MASTECTOMY Bilateral 05/30/2019 Exchange right tissue car and yard supervisor to silicone implant, exchange of left implant for matching performedby Tylor Boss MD at [facility] OR Family History Problem Relation [...] have been marked as taking for the 11/17/22 encounter (Telemedicine) with David Moya MD. Allergies Allergen Reactions ??? Amoxicillin Other (See Comments) and Rash Red rash ??? Sulfa (Sulfonamide Antibiotics) Hives Light lavender rash ROS - See HPI Objective: There were no vitals taken for this visit. Physical Exam Not performed Assessment: 62-year-old female with liver metastases from breast cancer, doing well. Patient had an excellent response to Y90 previously, and now has only minimal questionable viable tumor in her liver. With herminimal disease in her liver, there is no role for repeat Y90 at this time, however this may be an option in the future with more significant burden of disease. Would recommend systemic therapy in order to control her disease. We discussed the new finding of cholelithiasis on the MRI, and its clinical implications. Patient is asymptomatic from her gallstones. Plan: Sunshine was seen today for ir procedure follow-up. Diagnoses and all orders for this visit: Metastases to the liver (HCC-CMS) - MR ABDOMEN W WO CONTRAST; Future 3-month office visit with repeat MRI and labs at that time. ???I spent a total of 35 minutes on [...] Home Patient location state: Visit Location State: [place] The location of the provider: Office Provider location state: Visit Location State: [place] The following people and their roles were present for today's visit: Appointment Provider: David Moya MD Geoffrey Michael Scriver, MD documented in this encounter Plan of Treatment Upcoming Encounters Date Type Department Care Team (Late st Contact Info) Description 04/02/2024 10:30 EDT Appointment [facility] Interventional Radiology Unit [address] [place] [address] [phone] 04/02/2024 15:15 EDT Office Visit [facility] Surgical Oncology - [address] [phone] Adolfo Carreno MD 111 [facility], Level [address] [place] [phone] 04/05/2024 9:30 EDT Telemedicine [facility] Palliative Care Services [address] [place] [address] [phone] Chichi Woods MD 111 [facility] [address] [place] [phone] 04/11/2024 15:00 EDT Telemedicine [facility] Hematology & Oncology - [address] 119021 Alisson Carreon MD [address] [place] [address] 2 [place] [phone] 04/13/2024 13:30 EDT Appointment [facility] Hematology & Oncology - [address] [phone] 04/13/2024 14:00 EDT Appointment [facility] Hematology & Oncology [address] [phone] 04/16/2024 10:00 EST Telemedicine [facility] - [facility] Palliative Care Services [address] [place] [address] Chichi Woods MD [address] [place] [address] [phone] 04/24/2024 9:00 EST Appointment [facility] Radiology CT Outpatient - [address] [id number] 04/24/2024 11:00 EST Appointment [facility] Breast Imaging - [address] [phone] 04/27/2024 12:00 EST Appointment [facility] Hematology & Oncology - [address] [phone] 05/02/2024 15:00 EST Telemedicine [facility] Hematology & Oncology [address] [phone] Alisson Carreon MD [address] [place] [address], [facility] 2 [place] [phone] 05/04/2024 10:15 EST Ancillary Procedure [facility] Cardiology - [address] [place], [place] [phone] 05/04/2024 11:30 EST Appointment [facility] Hematology & Oncology [address] [phone] 05/04/2024 12:00 EST Appointment [facility] Hematology & Oncology [address] [phone] 06/12/2024 13:00 EST Appointment [facility] Radiology CT - [address] [phone] documented as of this encounter Results * [...] above interpretation and agree with the findings. [id number] Narrative 03/01/2023 16:53 EDT MR ABDOMEN W [...] the above interpretation andagree with the findings. [id number] David Moya MD IM MRI JAIMEE ACOSTA documented in this encounter Visit Diagnoses Diagnosis Metastases to the liver (HCC-CMS)- Primary Secondary malignant neoplasm of liver Metastases to the liver (HCC-CMS) Secondary malignant neoplasm of liver documented in this encounter Care Teams Spine Supervisor Relationship Specialty Start Date End Date Linda Blancas MD [facility] [address] [place] [address] PCP - General 01/06/11 Adolfo Carreno MD [address] [place] [address], [address] [place] [phone] General Surgery 04/26/19 Augustina Colin MD PhD [address] [place] [address] 2 [place] [phone] Medical Oncology 04/26/19 documented as of this encounter
--- OUTSIDE RECORDS SUMMARY | 2024-03-20 14:46 | XMS_ITS | Encounter Summary ---
Author Organization [facility] Address [address] [place] [address] Care Team Providers Care Assembly Inspector Helper Name Role Phone Linda Blancas MD Primary Care Provider [phone] Adolfo Carreno MD Unavailable [phone] Augustina Colin MD PhD Unavailable Unavailable Reason for Visit * Reason Comments Follow-up Encounter Details Date Type Department Care Team (Late st Contact Info) Description 09/02/2022 10:00 EDT Office Visit [facility] Hematology & Oncology - [address] [phone] Nadeen Blood PA-C [address] [place] [address], Level 2 [place] [address] Metastatic breast cancer (HCC-CMS) (HCC) (HCC-CMS) (Primary Dx) Social History [...] Progress Notes * Nadeen Blood PA-C - 09/02/2022 1000 EDT Sunshine Pleitez is a 62 y.o.yo female presenting in clinic today for assessment prior to ongoing capecitabine therapy, given for metastatic breast cancer Chief Complaint Patient presents with ??? Follow-up PROBLEM LIST: 1. 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 a. ??Ultrasound performed in [place]??identifying an irregular heterogeneous soft tissue mass measuring 1.2 x 1.2 x 1.5 cm. ?? 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 ??HER-2 1+ by IHC. ??ANNE MARIE revealed [...] to mouth sores. ??Discontinued palbociclib Mar 2018 ??f.??Excision of right breast tumor??07/07/17 and placement of tissue field recorder. ??1.9 cm tumor at time of surgery, well differentiated, with LVI present, and negative margins. G.?Biopsy left cervical LN 02/11/20 - consistent with metastatic adenocarcinoma consistent with breast primary?? H. Fulvestrant initiated 03/06/20; abemaciclib initiated 03/31/20 discontinued 06/01 due to diarrhea; palbociclib initiated March 2021 I. Capecitabine initiated December 2021 J. Y90 infusion to liver by Dr Moya 04/08/22 and again 05/14/22 K. 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 She had labs 2 days ago. She also had also had an abdominal MRI earlier this month, and saw Dr. Geller just after. Imaging seems to show a complete response, without residual viable tumor. She will have repeat MRI at a 3-month interval. She is tolerating capecitabine reasonably well, with some cracking of the skin of her hands, not currently painful. Feet seem to be doing okay. She takes the drug on a 1 week on, 1 week off cycle. No major bowel disruption. She is due for Zometa and tolerates these infusions well. REVIEW OF SYSTEMS: I went through a verbal review of symptoms with the patient. Symptoms as noted above. She follows with ophthalmology closely, with new retinal tears. She denies significant vision issues. No new cough or dyspnea. Remainder of system review is without acute complaints. Past medical, surgical, family and social history reviewed and updated. , lives in [place]. Objective: There were no vitals taken for this visit. General appearance: alert, no distress Head: Normocephalic, without obvious abnormality, atraumatic Neck: supple, symmetrical, trachea midline and no adenopathy Lymph nodes: Cervical, supraclavicular nodes normal. Lungs: clear to auscultation bilaterally Heart: regular rate and rhythm, No significant murmur Abdomen: no masses palpable, no organomegaly, soft, non-tender Neurologic: Grossly normal Mental Status: mood and affect appropriate, speech and thought process intact Extremities: extremities warm, atraumatic, no cyanosis or edema Skin: Skin color, temperature, turgor normal. No rashes or lesions LABS: Labwork from 08/31/22 were reviewed. CA to 7.29 tumor marker is down again, at 69.1, compared to 280 last December and 377.9 in November 2021... ASSESSMENT: Metastatic breast cancer, with diagnosis and therapy as documented above. Sendy continues on capecitabine which she is tolerating well. Tumor marker continues to drop. Labs are in good range. She's fit to receive Zometa as planned. PLAN: 1. Continue capecitabine as prescribed (twice daily 1 week on, 1 week off schedule). 2. Zometa infusion today. I will clarify if this should be ongoing every 3 months. 3. MRI of the abdomen is scheduled for early November, I believe with a visit with Dr. Moya thereafter. 4. Next visit with Dr. Carreno and surgical oncology is scheduled for this coming March. 5. I will check in with Dr. Colin regarding follow-up plan for Sendy, including frequency of Zometa and when next scans might be ordered as well as how often she is usually seen in clinic. 6. Follow-up as above, sooner with acute concerns or questions. I spent a total of 35 minutes on the date of this encounter meeting with the patient and reviewing documentation/coordinating care as described in the above note. No procedures were performed at the time of the visit. Nadeen Blood PA-C 09/02/2022 10:55 documented in this encounter Plan of Treatment Upcoming Encounters Date Type Department Care Team (Late st Contact Info) Description 04/02/2024 10:30 EDT Appointment [facility] Interventional Radiology Unit [address] [place] [address] 04/02/2024 15:15 EDT Office Visit [facility] Surgical Oncology - [address] [address] Adolfo Carreno MD 111 [facility] 2 [place] [phone] 04/05/2024 9:30 EDT Telemedicine [facility] [address] [place] [address] [phone] Chichi Woods MD [address] [place] [address] [phone] 04/11/2024 15:00 EDT Telemedicine [facility] Hematology & Oncology - [address] [phone] Alisson Carreon MD [address] [place] [address] 2 [place] [phone] 04/13/2024 13:30 EDT Appointment [facility] Hematology & Oncology - [address] [phone] 04/13/2024 14:00 EDT Appointment [facility] Hematology & Oncology [address] [phone] 04/16/2024 10:00 EST Telemedicine [facility] [address] [place] [address] Chichi Woods MD [address] [place] [address] [phone] 04/24/2024 9:00 EST Appointment [facility] Radiology CT Outpatient - [address] [phone] 04/24/2024 11:00 EST Appointment [facility] Breast Imaging - [address] 811021 04/27/2024 12:00 EST Appointment [facility] Hematology & Oncology [address] [address] 05/02/2024 15:00 EST Telemedicine [facility] Hematology & Oncology [address] [address] Alisson Carreon MD [address] [place] [address] 2 [place] [phone] 05/04/2024 10:15 EST Ancillary Procedure [facility] Cardiology - [address] [place] [address] 05/04/2024 11:30 EST Appointment [facility] Hematology & Oncology [address] [address] 05/04/2024 12:00 EST Appointment [facility] Hematology & Oncology [address] [address] 06/12/2024 13:00 EST Appointment [facility] Radiology CT - [address] 964401 documented as of this encounter Visit Diagnoses Diagnosis Metastatic breast cancer- Primary documented in this encounter Care Teams Assembly Inspector Helper Relationship Specialty Start Date End Date Linda Blancas MD [address] [place] [address] 30 [place] [address] PCP - General 01/06/11 Adolfo Carreno MD [address] [place] [address] [phone] General Surgery 04/26/19 Augustina Colin MD PhD [address] [place] [phone] Medical Oncology 04/26/19 documented as of this encounter
--- OUTSIDE RECORDS SUMMARY | 2024-03-20 14:46 | XMS_ITS | Encounter Summary ---
Author Organization [facility] Address [address] [place] [address] Care Team Providers Care Director Quality Assurance Name Role Phone Linda Blancas MD Primary Care Provider [phone] Adolfo Carreno MD Unavailable [phone] Augustina Colin MD PhD Unavailable Unavailable Encounter Details Date Type Department Care Team (Late st Contact Info) Description 08/19/2022 Orders Only [facility] Radiology - Main [place] [address] [place], [place] 082151 Kaylyn Nix MD 111 [facility], Level 1 [place] [address] Social History Tobacco Use Types [...] Appointment [facility] Interventional Radiology Unit [address] [place] [address] [phone] 04/02/2024 15:15 EDT Office Visit [facility] Surgical Oncology - [address] [phone] Adolfo Carreno MD [address] [place] [address] 2 [place] [phone] 04/05/2024 9:30 EDT Telemedicine [facility] - [facility] Palliative [facility] Services [address] [place] [address] [phone] Chichi Woods MD [address] [place] [phone] 04/11/2024 15:00 EDT Telemedicine [facility] Hematology & Oncology [address] [phone] Alisson Carreon MD [address] [place] [address] 2 [place] [phone] 04/13/2024 13:30 EDT Appointment [facility] Hematology & Oncology [address] [phone] 04/13/2024 14:00 EDT Appointment [facility] Hematology & Oncology - [address] [address] 04/16/2024 10:00 EST Telemedicine [facility] - [facility] Palliative Care Services [address] [place], [place] 020[address] Chichi Woods MD 111 [facility], [address] [phone] 04/24/2024 9:00 EST Appointment [facility] Radiology CT Outpatient - [address] [address] 04/24/2024 11:00 EST Appointment [facility] Breast Imaging - [address] [address] 04/27/2024 12:00 EST Appointment [facility] Hematology & Oncology - [address] 088071 05/02/2024 15:00 EST Telemedicine [facility] Hematology & Oncology - [address] 057221 Alisson Carreon MD [address] [place] [address], Level 2 [place] [phone] 05/04/2024 10:15 EST Ancillary Procedure [facility] Cardiology - [address] [place] [address] 05/04/2024 11:30 EST Appointment [facility] Hematology & Oncology - [address] [address] 05/04/2024 12:00 EST Appointment [facility] Hematology & Oncology - [address] [address] 06/12/2024 13:00 EST Appointment [facility] Radiology CT - [address] [address] documented as of this encounter Visit Diagnoses Not on filedocumented in this encounter Care Teams Director Quality Assurance Relationship Specialty Start Date End Date Linda Blancas MD [facility] [address] [place] [address] PCP - General 01/06/11 Adolfo Carreno MD [address] [place] [phone] General Surgery 04/26/19 Augustina Colni MD PhD [address] [place] [phone] Medical Oncology 04/26/19 documented as of this encounter
--- OUTSIDE RECORDS SUMMARY | 2024-03-20 14:46 | XMS_ITS | Encounter Summary ---
Author Organization [facility] Address [address] [place] [address] Care Team Providers Care Lubrication Supervisor Name Role Phone Linda Blancas MD Primary Care Provider [phone] Adolfo Carreno MD Unavailable [phone] Augustina Colin MD PhD Unavailable Unavailable Reason for Referral * Radiology Services (Routine/Next Available) - Authorized Specialty Diagnoses / Procedures Referred By [facility] Referred To Contact Diagnoses Malignant neoplasm of right female breast, unspecified estrogen receptor status, unspecified site of breast ([facility]) Procedures CT CHEST W CONTRAST Augustina Colin MD PhD [facility] Referral ID Status Reason Start Date Expiration Date V isits Requested Visits Authorized [id number] Authorized 05/11/2023 11/07/2023 1 1 Reason for Visit * Reason Comments Follow-up Encounter Details Date Type Department Care Team (Late st Contact Info) Description 11/25/2022 9:00 EDT Office Visit [facility] Hematology & Oncology - [facility] [address] [place] [address] Augustina Colin MD PhD Malignant neoplasm of [...] Sign Reading Time Taken Comments Blood Pressure 128/51 11/25/2022 0848 EDT Pulse 88 11/25/2022 0848 EDT Temperature 36.8 ??C (98.2 ??F) 11/25/2022 0848 EDT Respiratory Rate 16 11/25/2022 0848 EDT Oxygen Saturation 100% 11/25/2022 0848 EDT Inhaled Oxygen Concentration - - Weight 59.2 kg (130 lb 9.6 oz) 11/25/2022 0848 E DT Height 155.4 cm (5' 1.18) 11/25/2022 0848 EDT Body Mass Index 24.53 11/25/2022 0848 EDT documented in this encounter Functional Status [...] Notes * Augustina Colin MD PhD - 11/25/2022 0900 EDT REASON FOR OFFICE VISIT: ??Discussion of side effects related to anti estrogen therapy and scan results ?? PROBLEM LIST: 1. 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 a. ??Ultrasound performed in [place]??identifying an irregular heterogeneous soft tissue mass measuring 1.2 x 1.2 x 1.5 cm. ?? 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 ??HER-2 1+ by IHC. ??ANNE MARIE revealed [...] breast tumor 07/07/17 and placement of tissue wire rope sales representative. ??1.9 cm tumor at time of surgery, [...] 2. ??Restaging scans: ?? - MRI Abdomen 11/16/22: New subcentimeter indeterminate focus of DWI and T2 hyperintensity, without associated abnormality on postcontrast imaging. Attention at follow-up recommended. Treated lesions throughout the liver, status post right and left lobe radio embolization. - CT Chest 11/26/21 - Stable to minimally decreased size of a solitary left upper lobe nodule since the most recent comparison study, etiology uncertain. This finding has been present since at least 10/30/2018; Stable mildly enlarged right internal mammary lymph node. - Nuclear Bone scan 07/20/22: Stable disease 3. ??DCIS in 2004 at the age [...] capecitabine and scan results. The MR abdomen identifies mostly treated areas in the liver. There is a 0.7 area of hyperintensity. Capecitabine 1000mg am 1500mg pm one week on one week off. She tolerates it better than the higher dose and the 2 weeks on. She has some hand/foot redness but no cracking or discomfort. No diarrhea ROS: A 10 point review [...] FORMULA ORAL) Take by mouth daily. ??? mv-mn/C/glutamin/lysin/hvjy631 (AIRBORNE, ASCORBATE SODIUM, ORAL) Take by mouth [...] Facility-Administered Medications Prior to Visit Medication ??? diphenhydrAMINE (BENADRYL) injection 50 mg ??? EPINEPHrine (ADRENALIN) injection 0.3 mg ??? methylPREDNISolone sod suc(PF) (SOLU-MEDROL) injection 40 mg ??? sodium chloride 0.9 % (flush) flush 20 mL ??? sodium chloride 0.9 % (NS) infusion ??? zoledronic acid (ZOMETA) 4 mg/100 mL IVPB 4 mg Social History Tobacco Use ??? Smoking status: Never ??? Smokeless tobacco: Never Substance Use Topics ??? Alcohol use: Yes Alcohol/week: 2.0 standard drinks of alcohol Types: 2 Glasses of wine per week Presents the clinic with her partner. She continues to be active. Objective: BP 128/51 Pulse 88 Temp 36.8 ??C (98.2 ??F) (Skin) Resp 16 Ht 155.4 cm (61.18) Wt 59.2 kg (130 lb 9.6 oz) SpO2 100% BMI 24.53 kg/m?? Estimated body mass index is 24.53 kg/m?? as calculated from the following: Height as of this encounter: 155.4 cm (61.18). Weight as of this encounter: 59.2 kg (130 lb 9.6 oz). ECOG Performance Status: 0 General: Comfortable, cooperative and in no apparent distress NEURO: Alert and oriented x 3; Grossly neurologically intact DIAGNOSTIC DATA Hospital Outpatient Visit on 11/25/2022 Component Date Value Ref Range Status ??? WBC 11/25/2022 5.06 4.00 - 12.40 [...] ??? Type of Differential: 11/25/2022 Auto Final ASSESSMENT: ??Ms Bernstein is a 62-year-old female with metastatic breast cancer.?? She receiving capecitabine 1000mg am and 1500mg pm 1 week on 1 week off. She tolerates this dose. We will try to increase to 1500mg BID but keep it one week on and one week off. MR abdomen shows mostly treated disease but one area of hyperintensity measuirng 0.7cm. She has a nuclear bone scan today. Zolendronic acid to every 3 mos for now. She takes a vitamin D supplement. PLAN: 1. Capecitabine 1500mg am and 1000mg pm and then increase to 1500mg BID December 20. One week on and one week off 2. Zoledronic acid q 3mo, due today Continued Vit D supplementation 3. MR abdomen February 2023. 4. Continued follow-up with Dr. Moya 5. FUR documented in this encounter Plan of Treatment Upcoming Encounters Date Type Department Care Team (Late st Contact Info) Description 04/02/2024 10:30 EDT Appointment [facility] Interventional Radiology Unit [address] [place] [phone] 04/02/2024 15:15 EDT Office Visit [facility] Surgical Oncology - [address] [phone] Adolfo Carreno MD [address] [place] [address], Level 2 [place] [phone] 04/05/2024 9:30 EDT Telemedicine [facility] - [facility] Palliative Care Services [address] [place] [address] Chichi Woods MD [address] [place] [address] [phone] 04/11/2024 15:00 EDT Telemedicine [facility] Hematology & Oncology [address] [phone] Alisson Carreon MD [address] [place] [address], Level [address] [place] [phone] 04/13/2024 13:30 EDT Appointment [facility] Hematology & Oncology [address] [phone] 04/13/2024 14:00 EDT Appointment [facility] Hematology & Oncology [address] [address] 04/16/2024 10:00 EST Telemedicine [facility] - [facility] Palliative Care Services [address] [place] [address] [phone] Chichi Woods MD [address] [place] [address] [phone] 04/24/2024 9:00 EST Appointment [facility] Radiology CT Outpatient - [address] [id number] 04/24/2024 11:00 EST Appointment [facility] Breast Imaging - [address] [phone] 04/27/2024 12:00 EST Appointment [facility] Hematology & Oncology - [address] [phone] 05/02/2024 15:00 EST Telemedicine [facility] Hematology & Oncology - [address] [address] Alisson Carreon MD 111 [facility], Level 2 [place] [phone] 05/04/2024 10:15 EST Ancillary Procedure [facility] Cardiology - [address] [place] [address] 05/04/2024 11:30 EST Appointment [facility] Hematology & Oncology - [address] [phone] 05/04/2024 12:00 EST Appointment [facility] Hematology & Oncology [address] [phone] 06/12/2024 13:00 EST Appointment [facility] Radiology CT - [address] [phone] documented as of this encounter Results * [...] 05/20/2023 abdominal MRI and unchanged since then. [id number] Narrative 05/27/2023 17:[address] CHEST W [...] nodule in the medial right lung apex ([id number]), likely an intrapulmonary lymph node. Clear central [...] the05/20/2023 abdominal MRI and unchanged since then. [id number] Augustina Colin MD PhD IMG CT ORDERABLES documented in this encounter Visit Diagnoses Diagnosis Malignant neoplasm of right female breast, unspecified estrogen receptor status, unspecified site of breast (HCC-CMS)- Primary Malignant neoplasm of right female breast, unspecified estrogen receptor status, unspecified site of breast (HCC-CMS) documented in this encounter Care Teams Lubrication Supervisor Relationship Specialty Start Date End Date Linda Blancas MD [facility] [address] [place] [address] PCP - General 01/06/11 Adolfo Carreno MD [address] [place] [address] 2 [place] [phone] General Surgery 04/26/19 Augustina Colin MD PhD [address] [place] [address] 2 [place] [phone] Medical Oncology 04/26/19 documented as of this encounter
--- OUTSIDE RECORDS SUMMARY | 2024-03-20 14:46 | XMS_ITS | Encounter Summary ---
Author Organization [facility] Address [address] [place] [address] Care Team Providers Care Entertainment Production Professional Name Role Phone Linda Blancas MD Primary Care Provider [phone] Adolfo Carreno MD Unavailable [phone] Augustina Colin MD PhD Unavailable Unavailable Encounter Details Date Type Department Care Team (Late st Contact Info) Description 11/17/2022 Orders Only [facility] Radiology - Main [place] [address] [place], [place] [phone] Pavan Ceron MD 111 [facility], Level 1 [place] [phone] Social History Tobacco Use Types [...] [facility] Interventional Radiology Unit [address] [place] [address] [phone] 04/02/2024 15:15 EDT Office Visit [facility] Surgical Oncology - [address] [phone] Adolfo Carreno MD [address] [place] [address] 2 [place] [phone] 04/05/2024 9:30 EDT Telemedicine [facility] - [facility] Palliative Care Services [address] [place] [address] [phone] Chichi Woods MD [address] [place] [phone] 04/11/2024 15:[address] [facility] Hematology & Oncology - [address] [phone] Alisson Carreon MD [address] [place] [address] 2 [place] [phone] 04/13/2024 13:[address] [facility] Hematology & Oncology [address] [phone] 04/13/2024 14:[address] [facility] Hematology & Oncology - [address] [phone] 04/16/2024 10:00 EST Telemedicine [facility] - [facility] Palliative Care Services [address] [place], [place] 850461 Chichi Woods MD 111 [facility], [address] [phone] 04/24/2024 9:00 EST Appointment [facility] Radiology CT Outpatient - [address] [phone] 04/24/2024 11:00 EST Appointment [facility] Breast Imaging - [address] [phone] 04/27/2024 12:[address] [facility] Hematology & Oncology - [address] [phone] 05/02/2024 15:[address] [facility] Hematology & Oncology - [address] [phone] Alisson Carreon MD [address] [place] [address], [facility] 2 [place] [phone] 05/04/2024 10:15 EST Ancillary Procedure [facility] Cardiology - [place] [address] 05/04/2024 11:[address] [facility] Hematology & Oncology - [address] [phone] 05/04/2024 12:[address] [facility] Hematology & Oncology - [address] [address] 06/12/2024 13:00 EST Appointment [facility] Radiology CT - [address] [address] documented as of this encounter Visit Diagnoses Not on filedocumented in this encounter Care Teams Entertainment Production Professional Relationship Specialty Start Date End Date Linda Blancas MD [facility] [address] [place] [address] PCP - General 01/06/11 Adolfo Carreno MD [address] [place] [phone] General Surgery 04/26/19 Augustina Colin MD PhD [address] [place] [phone] Medical Oncology 04/26/19 documented as of this encounter
--- OUTSIDE RECORDS SUMMARY | 2024-03-20 14:46 | XMS_ITS | Encounter Summary ---
Author Organization [facility] Address [address] [place] [address] Care Team Providers Care Client Experience Manager Name Role Phone Linda Blancas MD Primary Care Provider [phone] Adolfo Carreno MD Unavailable [phone] Augustina Colin MD PhD Unavailable Unavailable Encounter Details Date Type Department Care Team (Late st Contact Info) Description 11/12/2022 Orders Only [facility] Center Hematology & Oncology - [facility] [address] [place] [address] Garima Boyce, [place] Social History Tobacco Use Types Packs/Day [...] one week off 84 Tablet 3 11/12/2022 11/12/2022 documented in this encounter Plan of Treatment Upcoming Encounters Date Type Department Care Team (Late st Contact Info) Description 04/02/2024 10:30 EDT Appointment [facility] Interventional Radiology Unit [address] [place] [address] [phone] 04/02/2024 15:15 EDT Office Visit [facility] Surgical Oncology - [address] 837171 Adolfo Carreno MD [address] [place] [address] 2 [place] [phone] 04/05/2024 9:30 EDT Telemedicine [facility] - [facility] Palliative Care Services [address] [place] [address] 106061 Chichi Woods MD [address] [place] [address] [phone] 04/11/2024 15:00 EDT Telemedicine [facility] Hematology & Oncology [address] [phone] Alisson Carreon MD [address] [place] [address] [phone] 04/13/2024 13:30 EDT Appointment [facility] Hematology & Oncology [address] 225361 04/13/2024 14:00 EDT Appointment [facility] Hematology & Oncology - [address] [address] 04/16/2024 10:00 EST Telemedicine [facility] Health [facility] - [facility] Palliative Care Services [address] [place] [address] Chichi Woods MD 111 [facility], [address] [phone] 04/24/2024 9:00 EST Appointment [facility] Radiology CT Outpatient - [address] [address] 04/24/2024 11:00 EST Appointment [facility] Breast Imaging - [facility] S [place] 1 [place], [place] 275571 04/27/2024 12:00 EST Appointment [facility] Hematology & Oncology - [address] 233341 05/02/2024 15:00 EST Telemedicine [facility] Hematology & Oncology - [address] [phone] Alisson Carreon MD [address] [place] [address], Level [address] [place] [phone] 05/04/2024 10:15 EST Ancillary Procedure [facility] Cardiology - [place] [address] 05/04/2024 11:30 EST Appointment [facility] Hematology & Oncology - [address] [address] 05/04/2024 12:00 EST Appointment [facility] Hematology & Oncology - [address] 077841 06/12/2024 13:00 EST [facility]ment [facility] Radiology [facility] - [address] [address] documented as of this encounter Visit Diagnoses Not on filedocumented in this encounter Discontinued Medications Medication Sig Discontinue Reason Start Date End Da te capecitabine (XELODA) 500 mg tablet Take 3 Tablets by mouth every 12 hours. 2 tabs am, 3 tabs pm, one week on, one week off Reorder 11/12/2022 11/12/2022 documented as of this encounter Care Teams Client Experience Manager Relationship Specialty Start Date End Date Linda Blancas MD [facility] [address] [place] [address] PCP - General 01/06/11 Adolfo Carreno MD [address] [place] [address], [facility] 2 [place] [phone] General Surgery 04/26/19 Augustina Colin MD PhD [address] [place] [address], [facility] 2 [place] [address] Medical Oncology 04/26/19 documented as of this encounter
--- OUTSIDE RECORDS SUMMARY | 2024-03-20 14:46 | XMS_ITS | Encounter Summary ---
Author Organization [facility] Address [address] [place] [address] Care Team Providers Care Onsite Health Coach Name Role Phone Linda Blancas MD Primary Care Provider [phone] Adolfo Carreno MD Unavailable [phone] Augustina Colin MD PhD Unavailable Unavailable Encounter Details Date Type Department Care Team (Late st Contact Info) Description 09/17/2022 Specialty Pharmacy [facility] Ambulatory Pharmacy - [facility] [address] [place] [address] Allen Day [address] [place] [address] Social History Tobacco Use Types Packs/Day Years [...] Contact Info) Description 04/02/2024 10:30 EDT Appointment [facility] Interventional Radiology Unit [address] [place] [address] [phone] 04/02/2024 15:15 EDT Office Visit [facility] Surgical Oncology - [address] [phone] Adolfo Carreno MD [address] [place] [address] 2 [place] [phone] 04/05/2024 9:30 EDT Telemedicine [facility] - [facility] Palliative Care Services [address] [place] [address] [phone] Chichi Woods MD [address] [place] [address] [phone] 04/11/2024 15:00 EDT Telemedicine [facility] Hematology & Oncology [address] 297021 Alisson Carreon MD [address] [place] [address] [phone] 04/13/2024 13:30 EDT Appointment [facility] Hematology & Oncology [address] [phone] 04/13/2024 14:00 EDT Appointment [facility] Hematology & Oncology [address] 599191 04/16/2024 10:00 EST Telemedicine [facility] - [facility] Palliative Care Services [address] [place], [place] 934331 Chichi Woods MD [address] [place] [address], [address] [phone] 04/24/2024 9:00 EST Appointment [facility] Radiology CT Outpatient - [address] [id number] 04/24/2024 11:00 EST Appointment [facility] Breast Imaging - [facility] S [address] 1 [place], [place] 326901 04/27/2024 12:00 EST Appointment [facility] Hematology & Oncology - [address] 752971 05/02/2024 15:00 EST Telemedicine [facility] Hematology & Oncology - [address] 286791 Alisson Carreon MD [address] [place] [address], [facility], Level [address] [place] [phone] 05/04/2024 10:15 EST Ancillary Procedure [facility] Cardiology [place] [address] 05/04/2024 11:30 EST Appointment [facility] Hematology & Oncology - [address] 824211 05/04/2024 12:00 EST Appointment [facility] Hematology & Oncology [address] [phone] 06/12/2024 13:00 EST Appointment [facility] Radiology CT - [address] 496121 documented as of this encounter Visit Diagnoses Not on filedocumented in this encounter Care Teams Onsite Health Coach Relationship Specialty Start Date End Date Linda Blancas MD [facility] [address] [place] [address] PCP - General 01/06/11 Adolfo Carreno MD [address] [place] [address] 2 [place] [phone] General Surgery 04/26/19 Augustina Colin MD PhD [address] [place] [address], [facility] 2 [place] [address] Medical Oncology 04/26/19 documented as of this encounter
--- OUTSIDE RECORDS SUMMARY | 2024-03-20 14:46 | XMS_ITS | Encounter Summary ---
Author Organization [facility] Address [address] [place] [address] Care Team Providers Care Mower Operator Name Role Phone Linda Blancas MD Primary Care Provider [phone] Adolfo Carreno MD Unavailable [phone] Augustina Colin MD PhD Unavailable Unavailable Encounter Details Date Type Department Care Team (Late st Contact Info) Description 08/20/2022 Specialty Pharmacy [facility] Ambulatory Pharmacy - [facility] [address] [place], [place] 022811 Allen Day, [facility] Social History Tobacco Use Types Packs/Day Years [...] Description 04/02/2024 10:30 EDT Appointment [facility] Interventional Radiology Unit [address] [place] [address] 149061 04/02/2024 15:15 EDT Office Visit [facility] Surgical Oncology - [address] 825171 Adolfo Carreno MD [address] [place] [address] [phone] 04/05/2024 9:30 EDT Telemedicine [facility] - [facility] Palliative Care Services [address] [place] [address] 536351 Chichi Woods MD [address] [place] [address] [phone] 04/11/2024 15:00 EDT Telemedicine [facility] Hematology & Oncology [address] 751551 Alisson Carreon MD [address] [place] [address] [phone] 04/13/2024 13:30 EDT Appointment [facility] Hematology & Oncology [address] 204621 04/13/2024 14:00 EDT Appointment [facility] Hematology & Oncology [address] 890981 04/16/2024 10:00 EST Telemedicine [facility] - [facility] Palliative Care Services [address] [place] [address] 003151 Chichi Woods MD [address] [place] [address], [address] [place] [phone] 04/24/2024 9:00 EST Appointment [facility] Radiology CT Outpatient - [address] 772561 04/24/2024 11:00 EST Appointment [facility] Breast Imaging - [facility] S [place] 1 [place], [place] 476581 04/27/2024 12:00 EST Appointment [facility] Hematology & Oncology - [address] [phone] 05/02/2024 15:00 EST Telemedicine [facility] Hematology & Oncology - [address] 557471 Alisson Carreon MD [address] [place] [address], Level 2 [place] [phone] 05/04/2024 10:15 EST Ancillary Procedure [facility] Cardiology - [address] [place], [place] [phone] 05/04/2024 11:30 EST Appointment [facility] Hematology & Oncology - [address] 698321 05/04/2024 12:00 EST Appointment [facility] Hematology & Oncology [address] [phone] 06/12/2024 13:00 EST Appointment [facility] Radiology CT - [address] [phone] documented as of this encounter Visit Diagnoses Not on filedocumented in this encounter Care Teams Mower Operator Relationship Specialty Start Date End Date Linda Blancas MD [facility] [address] [place] [address] PCP - General 01/06/11 Adolfo Carreno MD [address] [place] [address], [facility] 2 [place] [phone] General Surgery 04/26/19 Augustina Colin MD PhD [address] [place] [address], [address] [phone] Medical Oncology 04/26/19 documented as of this encounter
--- OUTSIDE RECORDS SUMMARY | 2024-03-20 14:46 | XMS_ITS | Encounter Summary ---
Author Organization [facility] Address [address] [place] [address] Care Team Providers Care Real Estate Services Administrator Name Role Phone Linda Blancas MD Primary Care Provider [phone] Adolfo Carreno MD Unavailable [phone] Augustina Colin MD PhD Unavailable Unavailable Reason for Visit * Reason Onset Date Comments Appointment Related 08/24/2022 Encounter Details Date Type Department Care Team (Late st Contact Info) Description 08/24/[address] [facility] Cancer Center Hematology & Oncology - [address] [address] Nadeen Blood PA-C [address] [place] [address], Level [address] [place] [phone] Appointment Related Social History Tobacco [...] encounter Miscellaneous Notes * Telephone Encounter - Javon Gallegos - 08/24/2022 [id number] EDT Informed apts on 09/02/22 have been adjusted slightly, sees onmychart documented in this encounter Plan of Treatment Upcoming Encounters Date Type Department Care Team (Late st Contact Info) Description 04/02/2024 10:30 EDT Appointment [facility] Interventional Radiology Unit [address] [place], [place] 841431 04/02/2024 15:15 EDT Office Visit [facility] Surgical Oncology - [address] [phone] Adolfo Carreno MD 111 [facility], [facility] 2 [place] [phone] 04/05/2024 9:30 EDT Telemedicine [facility] - [facility] Palliative Care Services [address] [place], [place] [phone] Chichi Woods MD [address] [phone] 04/11/2024 15:00 EDT Telemedicine [facility] Hematology & Oncology - [facility] [address] [place], [place] [phone] Alisson Carreon MD [address] [place] [address], [facility] 2 [place] [phone] 04/13/2024 13:30 EDT Appointment [facility] Hematology & Oncology - [address] 814001 04/13/2024 14:00 EDT Appointment [facility] Hematology & Oncology - [address] 775211 04/16/2024 10:00 EST Telemedicine [facility] - [facility] Palliative Care Services [address] [place] [address] 176891 Chichi Woods MD [address] [place] [address], [address] [phone] 04/24/2024 9:00 EST Appointment [facility] Radiology CT Outpatient - [address] 980571 04/24/2024 11:00 EST Appointment [facility] Breast Imaging - [facility] S [address] 087411 04/27/2024 12:00 EST Appointment [facility] Hematology & Oncology - [address] [phone] 05/02/2024 15:00 EST Telemedicine [facility] Hematology & Oncology - [address] 632561 Alisson Carreon MD [address] [place] [address], [facility] 2 [place] [phone] 05/04/2024 10:15 EST Ancillary Procedure [facility] Cardiology - [address] [place], [place] [phone] 05/04/2024 11:[address] [facility] Cancer Center Hematology & Oncology - [address] [address] 05/04/2024 12:00 EST Appointment [facility] Hematology & Oncology - [address] [address] 06/12/2024 13:00 EST Appointment [facility] Center Radiology CT - [address] [address] documented as of this encounter Visit Diagnoses Not on filedocumented in this encounter Care Teams Real Estate Services Administrator Relationship Specialty Start Date End Date Linda Blancas MD [facility] [address] [place] [address] PCP - General 01/06/11 Adolfo Carreno MD [address] [place] [address] [phone] General Surgery 04/26/19 Augustina Colin MD PhD [address] [place] [phone] Medical Oncology 04/26/19 documented as of this encounter
--- OUTSIDE RECORDS SUMMARY | 2024-03-20 14:46 | XMS_ITS | Encounter Summary ---
Author Organization [facility] Address [address] [place] [address] Care Team Providers Care Passenger Booking Clerk Name Role Phone Linda Blancas MD Primary Care Provider [phone] Adolfo Carreno MD Unavailable [phone] Augustina Colin MD PhD Unavailable Unavailable Encounter Details Date Type Department Care Team (Late st Contact Info) Description 10/15/2022 Specialty Pharmacy [facility] Ambulatory Pharmacy - [facility] [address] [place], [place] 770091 Allen Day, [facility] Social History Tobacco Use Types [...] Contact Info) Description 04/02/2024 10:30 EDT Appointment [facility] Interventional Radiology Unit [address] [place] [address] [phone] 04/02/2024 15:15 EDT Office Visit [facility] Surgical Oncology - [address] 086401 Adolfo Carreno MD [address] [place] [address] [phone] 04/05/2024 9:30 EDT Telemedicine [facility] - [facility] Palliative Care Services [address] [place] [address] 988401 Chichi Woods MD [address] [place] [address] [phone] 04/11/2024 15:00 EDT Telemedicine [facility] Hematology & Oncology [address] 490091 Alisson Carreon MD [address] [place] [address] [phone] 04/13/2024 13:30 EDT Appointment [facility] Hematology & Oncology [address] 073011 04/13/2024 14:00 EDT Appointment [facility] Hematology & Oncology [address] 489871 04/16/2024 10:00 EST Telemedicine [facility] - [facility] Palliative Care Services [address] [place] [address] 501881 Chichi Woods MD [address] [place] [address], [address] [place] [phone] 04/24/2024 9:00 EST Appointment [facility] Radiology CT Outpatient - [address] 628181 04/24/2024 11:00 EST Appointment [facility] Breast Imaging - [facility] S [address] 1 [place], [place] 127471 04/27/2024 12:00 EST Appointment [facility] Hematology & Oncology - [address] 212711 05/02/2024 15:00 EST Telemedicine [facility] Hematology & Oncology - [address] 269581 Alisson Carreon MD [address] [place] [address], Level 2 [place] [phone] 05/04/2024 10:15 EST Ancillary Procedure [facility] Cardiology - [address] [place], [place] [phone] 05/04/2024 11:30 EST Appointment [facility] Hematology & Oncology - [address] 966451 05/04/2024 12:00 EST Appointment [facility] Hematology & Oncology [address] [phone] 06/12/2024 13:00 EST Appointment [facility] Radiology CT - [address] [phone] documented as of this encounter Visit Diagnoses Not on filedocumented in this encounter Care Teams Passenger Booking Clerk Relationship Specialty Start Date End Date Linda Blancas MD [facility] [address] [place] [address] PCP - General 01/06/11 Adolfo Carreno MD [address] [place] [address], [facility] 2 [place] [phone] General Surgery 04/26/19 Augustina Colin MD PhD [address] [place] [address], [address] [phone] Medical Oncology 04/26/19 documented as of this encounter
--- OUTSIDE RECORDS SUMMARY | 2024-03-20 14:46 | XMS_ITS | Encounter Summary ---
Author Organization [facility] Address [address] [place] [address] Care Team Providers Care Cold Roll Packer Sheet Iron Name Role Phone Linda Blancas MD Primary Care Provider [phone] Adolfo Carreno MD Unavailable [phone] Augustina Colin MD PhD Unavailable Unavailable Encounter Details Date Type Department Care Team (Late st Contact Info) Description 10/15/2022 Orders Only [facility] Interventional Radiology - [place] [address] [place] [address] Job Keyes, RN [address] [place] [address] Metastases to the liver (HCC-CMS) (Primary Dx) [...] [facility] Interventional Radiology Unit [address] [place] [address] [phone] 04/02/2024 15:15 EDT Office Visit [facility] Surgical Oncology [address] 848491 Adolfo Carreno MD [address] [place] [address] 2 [place] [phone] 04/05/2024 9:30 EDT Telemedicine [facility] - [facility] Palliative Care Services [address] [place] [address] [phone] Chichi Woods MD [address] [place] [address], [address] [phone] 04/11/2024 15:00 EDT Telemedicine [facility] Hematology & Oncology [address] [phone] Alisson Carreon MD [address] [place] [address] [phone] 04/13/2024 13:30 EDT Appointment [facility] Hematology & Oncology [address] 035811 04/13/2024 14:00 EDT Appointment [facility] Hematology & Oncology - [address] 334221 04/16/2024 10:00 EST Telemedicine [facility] - [facility] Palliative Care Services [address] [place] [address] 344211 Chichi Woods MD 111 [facility], [address] [phone] 04/24/2024 9:00 EST Appointment [facility] Radiology CT Outpatient - [address] [id number] 04/24/2024 11:00 EST Appointment [facility] Breast Imaging - [address] 385081 04/27/2024 12:00 EST Appointment [facility] Hematology & Oncology - [address] 553931 05/02/2024 15:00 EST Telemedicine [facility] Hematology & Oncology - [address] 218491 Alisson Carreon MD [address] [place] [address], Level [address] [place] [phone] 05/04/2024 10:15 EST Ancillary Procedure [facility] Cardiology - [place] [address] 05/04/2024 11:30 EST Appointment [facility] Hematology & Oncology - [address] 176931 05/04/2024 12:00 EST Appointment [facility] Hematology & Oncology - [address] 710421 06/12/2024 13:00 EST Appointment [facility] Radiology CT - [address] [phone] documented as of this encounter Visit Diagnoses Diagnosis Metastases to the liver (HCC-CMS)- Primary Secondary malignant neoplasm of liver documented in this encounter Care Teams Cold Roll Packer Sheet Iron Relationship Specialty Start Date End Date Linda Blancas MD [address] [place] [address] 30 [place] [address] PCP - General 01/06/11 Adolfo Carreno MD [address] [place] [address] [phone] General Surgery 04/26/19 Augustina Colin MD PhD [address] [place] [phone] Medical Oncology 04/26/19 documented as of this encounter
--- OUTSIDE RECORDS SUMMARY | 2024-03-20 14:46 | XMS_ITS | Encounter Summary ---
Author Organization [facility] Address [address] [place] [address] Care Team Providers Care Kitchen Steward/Stewardess Name Role Phone Linda Blancas MD Primary Care Provider [phone] Adolfo aCrreno MD Unavailable [phone] Augustina Colin MD PhD Unavailable Unavailable Reason for Referral * Prior Authorization (Routine/Next Available) - Authorized Specialty Diagnoses / Procedures Referred By Contac t Referred To Contact Infusion Therapy Diagnoses Malignant neoplasm of female breast, unspecified estrogen receptor status, unspecified laterality, unspecified site of breast ([facility]) Augustina Colin MD PhD [facility] [address] [place] [address] Referral ID Status Reason Start Date Expiration Date Visits Requested Visits Authorized [id number] Authorized Specialty Services Required 11/15/2022 06/12/2023 1 1 Question Answer Is this appt for transfusion, medication, test or injection? Infusion How many infusions need to be ordered for appt? 1 Infusion Name Other Please specify: Zometa Infusion Dose 4mg What is the infusion frequency? Q6 MO Is this the first dose of infusion(s)? No Are labs to be obtained during the appt? No Does this have a lab dependency? This patient is lab dependent Are preliminary tests complete (like MRI)? No Have orders been place for this appt? (i.e.: Blood Transfusion Order Set, Therapy Plan, Lab Orders, Supportive Plan, Etc) Yes Reason for Visit * Prior Authorization (Urgent) - Authorization Not Required Specialty Diagnoses / Procedures Referred By Contac t Referred To Contact Infusion Therapy Diagnoses Malignant neoplasm of female breast, unspecified estrogen receptor status, unspecified laterality, unspecified site of breast ([facility]) Augustina Colin MD PhD [facility] [address] [place] [address] Referral ID Status Reason Start Date Expiration Date Visits Requested Visits Authorized [id number] Authorization Not Required Specialty Services Required 3 3 6 Encounter Details Date Type Department Care Team (Latest Contact Info) Description 11/25/2022 8:13 EDT - 11/25/2022 8:29 EDT Hospital Encounter [facility] [address] [place] [address] Malignant neoplasm of female breast, unspecified estrogen receptor status, unspecified laterality, unspecified site of breast ([facility]) (Primary Dx); Osteopenia of necks of [...] this encounter Discharge Instructions * Discharge Instructions* Flori Sesay RN - 11/25/2022 9:18 EDT Zoledronate (Zoledronic Acid) Reclast 5 mg/Zometa 4 mg Zoledronate Discharge Instructions: You received a Zoledronic Acid infusion today 11/25 Signs and symptoms of an allergic reaction [...] Provider of any jaw or thigh pain. Health Care Provider: Rodolfo Colin documented in this encounter Medications at Time [...] Tablets by mouth as needed. 12/07/2023 mv-mn/C/glutamin/lysin/h [id number] (AIR[place]ORNE, ASCORBATE SODIUM, ORAL) Take by mouth [...] documented in this encounter Progress Notes * Flori Sesay RN - 11/25/2022 1000 EDT Sunshine Pleitez arrived to [facility] for Zometa infusion related to diagnosis code of C50.919. Identification verified verbally and on patient wristband. Patient denies recent or upcoming dental procedures Patient reports being well-hydrated today. Will continue to increase PO fluids for the next few days. Latest Reference Range & Units 11/25/22 08:37 Creatinine 0.52 - 1.04 mg/dL 0.69 Calcium 8.5 - 10.5 mg/dL 9.2 CrCl: 80.791ml/min Action: A PIV was placed by RN per protocol. Zometa dose: 4 mg Infused over 20 minutes Patient tolerated infusion well, no s/s of reaction. Zometa was administered per manufacturers directions and therapy protocol. PIV flushed with NS per protocol, left in place for nuclear medicine appt at 1100. Patient Education Topic: Zometa, importance of hydration Method: Verbal Taught to: Patient Barriers: [...] [facility] Interventional Radiology Unit [address] [place] [address] [phone] 04/02/2024 15:15 EDT Office Visit [facility] Surgical Oncology - [address] [phone] Adolfo Carreno MD [address] [place] [address] [phone] 04/05/2024 9:30 EDT Telemedicine [facility] Palliative Care Services [address] [place] [address] [phone] Chichi Woods MD [address] [place] [address] [phone] 04/11/2024 15:00 EDT Telemedicine [facility] Hematology & Oncology [address] [phone] Alisson Carreon MD [address] [place] [address] [phone] 04/13/2024 13:30 EDT Appointment [facility] Hematology & Oncology [address] 026321 04/13/2024 14:00 EDT Appointment [facility] Hematology & Oncology - [address] [address] 04/16/2024 10:00 EST Telemedicine [facility] - [facility] Palliative Care Services [address] [place] [address] [phone] Chichi Woods MD 111 [facility], [address] [phone] 04/24/2024 9:00 EST Appointment [facility] Radiology CT Outpatient - [address] [address] 04/24/2024 11:00 EST Appointment [facility] Breast Imaging - [facility] [address] [phone] 04/27/2024 12:00 EST Appointment [facility] Hematology & Oncology - [address] 039551 05/02/2024 15:00 EST Telemedicine [facility] Hematology & Oncology [address] 308171 Alisson Carreon MD [address] [place] [address], Level 2 [place] [phone] 05/04/2024 10:15 EST Ancillary Procedure [facility] Cardiology - [place] [address] 05/04/2024 11:30 EST Appointment [facility] Hematology & Oncology [address] [address] 05/04/2024 12:00 EST Appointment [facility] Hematology & Oncology - [address] [phone] 06/12/2024 13:00 EST [facility]ment [facility] [address] [place], [place] 1827[address] Scheduled Referrals Name Type Priority Associated Diagnoses Order Schedule AMB CONS/FOLLOW UP [facility] Outpatient Referral Routine/Next Available Malignant neoplasm of female breast, unspecified estrogen receptor status, unspecified laterality, unspecified site of breast ([facility]) 1 Occurrences starting 11/25/2022 until 11/25/2022 documented as of this encounter Visit Diagnoses Diagnosis Malignant neoplasm of female breast, unspecified estrogen receptor status, unspecified laterality, unspecified site of breast ([facility] Primary Osteopenia of necks of both femurs documented in this encounter Administered Medications Inactive Administered Medications - up to 3 most recent administrations Medication Order MAR Action Action Date Dose Rate Site zoledronic acid (ZOMETA) 4 mg/100 mL IVPB 4 mg 4 mg, intravenous, Administer over 20 Minutes, NOW X1, 1 dose, On Michelle 11/25/22 at 0845, Routine New Bag 11/25/2022 10:05 EDT 4 mg documented in this encounter Orders Medications Ordered That Vj ht Not Have Been Administered Count Last Ordered Date First Ordered Date diphenhydrAMINE (BENADRYL) injection 50 mg 1 11/25/2022 EPINEPHrine (ADRENALIN) injection 0.3 mg 1 11/25/2022 methylPREDNISolone sod suc(P F) (SOLU-MEDROL) injection 40 mg 1 11/25/2022 sodium chloride 0.9 % (flush) flush 20 mL 1 11/25/2022 sodium chloride 0.9 % (NS) infusion 1 11/25 Nursing Count Last Ordered Date First Orde red Date INFORMED CONSENT 1 11/25/2022 documented in this encounter Care Teams Kitchen Steward/Stewardess Relationship Specialty Start Date End Date Linda Blancas MD [address] [place] [address] PCP - General 01/06/11 Adolfo Carreno MD 111 [facility], Main Pavilion, [address] [place] [phone] General Surgery 04/26/19 Augustina Colin MD PhD [address] [place] [address], [facility] 2 [place] [phone] Medical Oncology 04/26/19 documented as of this encounter
--- OUTSIDE RECORDS SUMMARY | 2024-03-20 14:46 | XMS_ITS | Encounter Summary ---
Author Organization [facility] Address [address] [place] [address] Care Team Providers Care Maintainer Central Office Name Role Phone Linda Blancas MD Primary Care Provider [phone] Adolfo Carreno MD Unavailable [phone] Augustina Colin MD PhD Unavailable Unavailable Reason for Visit * Reason Onset Date Comments Medications Refill 11/12/2022 Encounter Details Date Type Department Care Team (Late st Contact Info) Description 11/12/2022 Refill [facility] Hematology & Oncology - [facility] [address] [place] [address] Augustina Colin, PhD Medications Refill Social History [...] week off 84 Tablet 3 11/12/2022 03/22/2023 capecitabine (XELODA) 500 mg tablet Take 3 Tablets by mouth every 12 hours. 2 tabs am, 3 tabs pm, one week on, one week off 84 Tablet 3 11/12/2022 11/12/2022 documented in this encounter Miscellaneous Notes * Telephone Encounter - Garima Boyce RN - 11/12/2022 1351 EDT Pended refill to [facility]. Per arnulfo last note continue capecitabine as prescribed (twice daily 1 week on and 1 week off. * Telephone Encounter - Ingrid Goldman - 11/12/2022 1055 EDT Medication Refill Request Medication: Capecitabine Patient needs medication by: 11/12/22 Scheduled outreach date: 11/12/22 Pharmacy: [facility] ([facility]) [address] Next appt: 11/25/2022 documented in this encounter Plan of Treatment Upcoming Encounters Date Type Department Care Team (Late st Contact Info) Description 04/02/2024 10:30 EDT Appointment [facility] Interventional Radiology Unit [address] [place] [address] 04/02/2024 15:15 EDT Office Visit [facility] Surgical Oncology - Main [place] [address] [place], [place] 870361 Adolfo Carreno MD [address] [place] [address], [facility] 2 [place] [phone] 04/05/2024 9:[address] [facility] Palliative Care Services [address] [place] [address] [phone] Chichi Woods MD [address] [place] [address] [phone] 04/11/2024 15:00 EDT Telemedicine [facility] Hematology & Oncology - [address] 274191 Alisson Carreon MD [address] [place] [address] 2 [place] [phone] 04/13/2024 13:30 EDT Appointment [facility] Hematology & Oncology - [address] [phone] 04/13/2024 14:00 EDT Appointment [facility] Hematology & Oncology - [address] [phone] 04/16/2024 10:[address] [facility] - [facility] Palliative Care Services [address] [place] [address] [phone] Chichi Woods MD [address] [place] [address] [phone] 04/24/2024 9:00 EST Appointment [facility] Radiology CT Outpatient - [address] [id number] 04/24/2024 11:00 EST Appointment [facility] Breast Imaging - [address] 449341 04/27/2024 12:00 EST Appointment [facility] Hematology & Oncology [address] [address] 05/02/2024 15:00 EST Telemedicine [facility] Hematology & Oncology [address] [address] Alisson Carreon MD [address] [place] [address], Level [address] [place] [phone] 05/04/2024 10:15 EST Ancillary Procedure [facility] Cardiology - [place] [address] 05/04/2024 11:30 EST Appointment [facility] Hematology & Oncology [address] [address] 05/04/2024 12:00 EST Appointment [facility] Hematology & Oncology [address] [address] 06/12/2024 13:00 EST Appointment [facility] Radiology CT - [address] [phone] documented as of this encounter Visit Diagnoses Not on filedocumented in this encounter Discontinued Medications Medication Sig Discontinue Reason Start Date End Da te capecitabine (XELODA) 500 mg tablet Take 3 Tablets by mouth every 12 hours. Take 3 tablets every 12 hours for seven days. Then hold for seven days. Repeat pattern. Reorder 07/23/2022 11/12/2022 capecitabine (XELODA) 500 mg tablet Take 3 Tablets by mouth every 12 hours. one week on, one week off Reorder 11/12/2022 11/12/2022 documented as of this encounter Care Teams Maintainer Central Office Relationship Specialty Start Date End Date Linda Blancas MD [facility] [address] [place] [address] PCP - General 01/06/11 Adolfo Carreno MD [address] [place] [address], [facility] 2 [place] [phone] General Surgery 04/26/19 Augustina Colin MD PhD [address] [place] [address] 2 [place] [phone] Medical Oncology 04/26/19 documented as of this encounter
--- OUTSIDE RECORDS SUMMARY | 2024-03-20 14:46 | XMS_ITS | Encounter Summary ---
Author Organization [facility] Address [address] [place] [address] Care Team Providers Care Court Monitor Name Role Phone Linda Blancas MD Primary Care Provider [phone] Adolfo Carreno MD Unavailable [phone] Augustina Colin MD PhD Unavailable Unavailable Encounter Details Date Type Department Care Team (Late st Contact Info) Description 09/08/2022 Orders Only [facility] Radiology - Main [place] [address] [place] [address] Tylor Alston MD [address] [place], [place] [phone] Social History Tobacco Use Types Packs/Day Years [...] Contact Info) Description 04/02/2024 10:30 EDT Appointment [facility] Interventional Radiology Unit [address] [place], [place] [phone] 04/02/2024 15:15 EDT Office Visit [facility] Surgical Oncology - [address] 244501 Adolfo Carreno MD [address] [place] [address] 2 [place] [phone] 04/05/2024 9:30 EDT Telemedicine [facility] - [facility] [address] [place], [place] [phone] Chichi Woods MD [address] [place] [address], [address] [phone] 04/11/2024 15:00 EDT Telemedicine [facility] Hematology & Oncology - [address] 289291 Alisson Carreon MD [address] [place] [address] 2 [place] [phone] 04/13/2024 13:30 EDT Appointment [facility] Hematology & Oncology [address] 270601 04/13/2024 14:00 EDT Appointment [facility] Hematology & Oncology - [address] [phone] 04/16/2024 10:00 EST Telemedicine [facility] - [facility] [address] [place], [place] 238021 Chichi Woods MD 111 [facility], [address] [phone] 04/24/2024 9:00 EST Appointment [facility] Radiology CT Outpatient - [address] 525951 04/24/2024 11:00 EST Appointment [facility] Breast Imaging - [address] [phone] 04/27/2024 12:00 EST Appointment [facility] Hematology & Oncology - [address] [phone] 05/02/2024 15:00 EST Telemedicine [facility] Hematology & Oncology - [address] 283621 Alisson Carreon MD [address] [place] [address], Level [address] [place] [phone] 05/04/2024 10:15 EST Ancillary Procedure [facility] Cardiology [place] [address] 05/04/2024 11:30 EST Appointment [facility] Hematology & Oncology - [address] [phone] 05/04/2024 12:00 EST Appointment [facility] Hematology & Oncology - [address] [phone] 06/12/2024 13:00 EST Appointment [facility] Radiology CT - [address] 185341 documented as of this encounter Visit Diagnoses Not on filedocumented in this encounter Care Teams Court Monitor Relationship Specialty Start Date End Date Linda Blancas MD [address] [place] [address] 30 [place] [address] PCP - General 01/06/11 Adolfo Carreno MD [address] [place] [phone] General Surgery 04/26/19 Augustina Colin MD PhD [address] [place] [phone] Medical Oncology 04/26/19 documented as of this encounter
--- OUTSIDE RECORDS SUMMARY | 2024-03-20 14:47 | XMS_ITS | Encounter Summary ---
Author Organization [facility] Address [address] [place] [address] Care Team Providers Care At Risk Paraprofessional Name Role Phone Linda Blancas MD Primary Care Provider [phone] Adolfo Carreno MD Unavailable [phone] Augustina Colin MD PhD Unavailable Unavailable Reason for Referral * Prior Authorization (Routine/Next Available) - Authorized Specialty Diagnoses / Procedures Referred By Contac t Referred To Contact Infusion Therapy Diagnoses Malignant neoplasm of female breast, unspecified estrogen receptor status, unspecified laterality, unspecified site of breast ([facility]) Augustina Colin MD PhD [facility]fusion [facility] 4 [address] [place] [address] Referral ID Status Reason Start Date Expiration Date Visits Requested Visits Authorized [id number] Authorized Specialty Services Required 11/15/2022 06/12/2023 1 [...] Plan, Lab Orders, Supportive Plan, Etc) Yes Encounter Details Date Type Department Care Team (Late st Contact Info) Description 07/27/2022 Orders Only [facility] Cancer Center Hematology & [place] [address] Lenore Simpson, RN [address] [place] [address] Malignant neoplasm of female breast, unspecified estrogen [...] as of this encounter Progress Notes * Lenore Simpson, RN - 07/27/2022 1651 EST [id number] ordered to get Zometa infusion (12/06/2022) scheduled on [facility] 4 documented in this encounter Plan of Treatment Upcoming Encounters Date Type Department Care Team (Late st Contact Info) Description 04/02/2024 10:30 EDT Appointment [facility] Interventional Radiology Unit [address] [place] [address] [phone] 04/02/2024 15:15 EDT Office Visit [facility] Surgical Oncology - [address] 317061 Adolfo Carreno MD [address] [place] [phone] 04/05/2024 9:30 EDT Telemedicine [facility] [address] [place] [address] 064141 Chichi Woods MD [address] [place] [address] [phone] 04/11/2024 15:00 EDT Telemedicine [facility] Hematology & Oncology - [address] 860551 Alisson Carreon MD [address] [place] [address] [phone] 04/13/2024 13:30 EDT Appointment [facility] Hematology & Oncology - [address] [address] 04/13/2024 14:00 EDT Appointment [facility] Hematology & Oncology [address] 624601 04/16/2024 10:00 EST Telemedicine [facility] [address] [place] [address] [phone] Chichi Woods MD [address] [place] [phone] 04/24/2024 9:00 EST Appointment [facility] Radiology CT Outpatient - [address] [phone] 04/24/2024 11:00 EST Appointment [facility] Breast Imaging - [facility] [address] [place] [address] [place] [address] 04/27/2024 12:00 EST Appointment [facility] Hematology & Oncology - [address] [address] 05/02/2024 15:00 EST Telemedicine [facility] Hematology & Oncology [address] 522271 Alisson Carreon MD [address] [place] [address], Level 2 [place] [phone] 05/04/2024 10:15 EST Ancillary Procedure [facility] Cardiology [place] [place] [address] 05/04/2024 11:30 EST Appointment [facility] Hematology & Oncology - [address] 282471 05/04/2024 12:00 EST Appointment [facility] Hematology & Oncology [address] 563501 06/12/2024 13:00 EST Appointment [facility] Radiology CT - [address] 985721 Scheduled Referrals Name Type Priority Associated Diagnoses Order Schedule AMB CONS/FOLLOW UP [facility] Outpatient Referral Routine/Next Available Malignant neoplasm of female breast, unspecified estrogen receptor status, unspecified laterality, unspecified site of breast ([facility]) Expected: 12/06/2022 (Approximate), Expires: 07/27/2023 documented as of this encounter Visit Diagnoses Diagnosis Malignant neoplasm of female breast, unspecified estrogen receptor status, unspecified laterality, unspecified site of breast ([facility])- Primary documented in this encounter Care Teams At Risk Paraprofessional Relationship Specialty Start Date End Date Foster, Linda, MD [facility] [address] [place] [address] PCP - General 01/06/11 Adolfo Carreno MD [address] [place] [address], [facility] 2 [place] [phone] General Surgery 04/26/19 Augustina Colin MD PhD [address] [place] [address], [facility] 2 [place] [phone] Medical Oncology 04/26/19 documented as of this encounter
--- OUTSIDE RECORDS SUMMARY | 2024-03-20 14:47 | XMS_ITS | Encounter Summary ---
Author Organization [facility] Address [address] [place] [address] Care Team Providers Care Core Loader Name Role Phone Linda Blancas MD Primary Care Provider [phone] Adolfo Carreno MD Unavailable [phone] Augustina Colin MD PhD Unavailable Unavailable Reason for Referral * Radiology Services (Routine/Next Available) - Authorization Not Required Specialty Diagnoses / Procedures Referred By Contac t Referred To Contact Nuclear Medicine Diagnoses Metastatic breast cancer Procedures NM BONE WHOLE BODY Augustina Colin MD PhD [facility] Referral ID Status Reason Start Date Expiration Date Visits Requested Visits Authorized [id number] Authorization Not Required 2 1 1 Reason for Visit * Radiology Services (Routine/Next Available) - Authorization Not Required Specialty Diagnoses / Procedures Referred By Contac t Referred To Contact Nuclear Medicine Diagnoses Metastatic breast cancer Procedures NM BONE WHOLE BODY Augustina Colin MD PhD [facility] Referral ID Status Reason Start Date Expiration Date Visits Requested Visits Authorized [id number] Authorization Not Required 2 1 1 Encounter Details Date Type Department Care Team (Latest Contact Info) Description 07/20/2022 11:00 EST - 07/20/2022 11:20 EST [facility] Nuclear [facility] and PET - [facility] [address] [place] [address] Metastatic breast cancer (HCC-CMS) (HCC) (HCC-CMS) Discharge Disposition: Home or Self Care [...] 08/16/2012 capecitabine (XELODA) 500 mg tablet Take 2 Tablets by mouth every 12 hours. 60 Tablet 3 04/11/2022 07/23/2022 gabapentin (NEURONTIN) 100 mg capsule Take 2 Caps by mouth 2 times daily. 360 Cap 3 08/16/2012 12/14/2023 ibuprofen (MOTRIN) 200 mg tablet Take 2 Tablets by mouth as needed. 12/07/2023 mv-mn/C/glutamin/lysin/h [id number] (AIRBORNE, ASCORBATE SODIUM, ORAL) Take by mouth as needed. 12/14/2023 omeprazole (PRILOSEC) 20 mg capsule Take 1 Capsule by mouth daily. 03/28/2023 ondansetron (ZOFRAN-ODT) 8 mg disintegrating tablet Take 1 Tablet by mouth every 8 hours as needed for Nausea. 30 Tablet 05/14/2022 09/22/2023 venlafaxine (EFFEXOR-XR) 150 mg XR capsule Take 1 Cap by mouth daily. 90 Cap 3 08/16/2012 12/14/2023 documented as of this encounter Discharge Disposition Disposition Code Departure Means Destination Home or Self Care documented in this encounter Plan of Treatment Upcoming Encounters Date Type Department Care Team (Late st Contact Info) Description 04/02/2024 10:30 EDT Appointment [facility] Interventional Radiology Unit [address] [place] [address] [phone] 04/02/2024 15:15 EDT Office Visit [facility] Surgical Oncology - [address] [phone] Adolfo Carreno MD [address] [place] [address] 2 [place] [phone] 04/05/2024 9:30 EDT Telemedicine [facility] Palliative Care Services [address], [place] 911171 Chichi Woods MD [address] [place] [address], [address] [phone] 04/11/2024 15:00 EDT Telemedicine [facility] Hematology & Oncology - [address] [phone] Alisson Carreon MD [address] [place] [address] 2 [place] [phone] 04/13/2024 13:30 EDT Appointment [facility] Hematology & Oncology - [address] [phone] 04/13/2024 14:00 EDT Appointment [facility] Hematology & Oncology [address] [address] 04/16/2024 10:00 EST Telemedicine [facility] Palliative Care Services [address] [place] [address] [phone] Chichi Woods MD [address] [place] [address] [phone] 04/24/2024 9:00 EST Appointment [facility] Radiology CT Outpatient - [address] [id number] 04/24/2024 11:00 EST Appointment [facility] Breast Imaging - [facility] [address] [id number] 04/27/2024 12:00 EST Appointment [facility] Hematology & Oncology - [address] [id number] 05/02/2024 15:00 EST Telemedicine [facility] Hematology & Oncology [address] 120551 Alisson Carreon MD [address] [place] [address], Level 2 [place] [phone] 05/04/2024 10:15 EST Ancillary Procedure [facility] Cardiology [place] [address] [place] [address] 05/04/2024 11:30 EST Appointment [facility] Hematology & Oncology - [address] [id number] 05/04/2024 12:00 EST Appointment [facility] Hematology & Oncology - [address] 232678 [phone] 06/12/2024 13:00 EST [facility] Radiology CT - Main [place] [address] [place] [address] documented as of this encounter Procedures Procedure Name Priority Date/Time Associated Diagnosis Comments NM BONE WHOLE BODY Routine 07/20/2022 14 :45 EST Metastatic breast cancer (HCC-CMS) (HCC) (HCC-CMS) documented in this encounter Results * NM BONE WHOLE BODY (07/20/2022 14:45 EST) Anatomical Region Laterality Modality Nuclear Medicine 07/20/2022 16:0 2 EST Impressions 07/20/2022 16:02 EST Stable exam compared to 03/12/2022. I have personally reviewed the images and the above interpretation and agree with the findings. Narrative 07/20/2022 16:02 EST NM BONE WHOLE BODY ??07/20/2022 1:45 PM Signs and Symptoms: ??Pt w/ breast cancer Comparison: Bone scan on 03/12/2022, CTA abdomen on 03/31/2022, CT chest on 11/26/2021 Technique: Approximately two hours after the IV injection of 17.6 mCi Tc-99m MDP, anterior and posterior whole body bone images were obtained. Findings: No significant change in previously seen multiple foci of increased radiotracer uptake in the skeleton in the bilateral ribs, left scapula, right ilium, left ischial tuberosity. Stable uptake in the lumbar spine related to prior spinal fusion, right lower cervical facet and also in the region of the costovertebral joints of the left 11th rib. Procedure Note Samuel Bowen MD - 07/20/2022 NM BONE WHOLE BODY 07/20/2022 1:45 PM Signs and Symptoms: Pt w/ breast cancer Comparison: Bone scan on 03/12/2022, CTA abdomen on 03/31/2022, CT chest on11/26/2021 Technique: Approximately two hours after the IV injection of 17.6 mCi Tc-99m MDP,anterior and posterior whole body bone images were obtained. Findings: No significant change in previously seen multiple foci of increasedradiotracer uptake in the skeleton in the bilateral ribs, left scapula,right ilium, left ischial tuberosity. Stable uptake in the lumbar spinerelated to prior spinal fusion, right lower cervical facet and also in theregion of the costovertebral joints of the left 11th rib. IMPRESSION Stable exam compared to 03/12/2022. I have personally reviewed the images and the above interpretation andagree with the findings. Augustina Colin MD PhD IMG NM ORDERABLES documented in this encounter Visit Diagnoses Diagnosis Metastatic breast cancer documented in this encounter Administered Medications Inactive Administered Medications - up to 3 most recent administrations Medication Order MAR Action Action Date Dose Rate Site technetium (Tc-99m) methylene diphosphonate (MDP) injection 18 millicurie 18 millicurie, radiopharm IV, NOW X1, 1 dose, On Tue07/20/22 at 1215, Routine, Imaging Protocol Orders Given 07/20/2022 11:35 EST 17.6 millicuries Left ACF documented in this encounter Orders Medications Ordered That Vj ht Not Have Been Administered Count Last Ordered Date First Ordered Date technetium (Tc-99m) methylen e diphosphonate (MDP) injection 18 millicurie 1 07/20/2022 documented in this encounter Care Teams Core Loader Relationship Specialty Start Date End Date Linda Blancas MD [facility] [address] [place] [address] PCP - General 01/06/11 Adolfo Carreno MD [address] [place] [phone] General Surgery 04/26/19 Augustina Colin MD PhD [address] [place] [phone] Medical Oncology 04/26/19 documented as of this encounter
--- OUTSIDE RECORDS SUMMARY | 2024-03-20 14:47 | XMS_ITS | Encounter Summary ---
Author Organization [facility] Address [address] [place] [address] Care Team Providers Care Creative Writing English Professor Name Role Phone Linda Blancas MD Primary Care Provider [phone] Adolfo Carreno MD Unavailable [phone] Augustina Colin MD PhD Unavailable Unavailable Encounter Details Date Type Department Care Team (Late st Contact Info) Description 07/27/[address] [facility] Interventional Radiology - [address] [place] [address] [place] [address] Job Keyes, RN [address] [place] [address] Liver metastases (HCC-CMS) (HCC) (HCC-CMS) (Primary Dx) [...] Info) Description 04/02/2024 10:[address] [facility] Interventional Radiology Unit [address] [place] [address] [id number] 04/02/2024 15:[address] [facility] Surgical Oncology - [address] [phone] Adolfo Carreno MD [address] [place] [address] [address] [place] [phone] 04/05/2024 9:[address] [facility] - [facility] Palliative Care Services [address] [place], [place] [phone] Chichi Woods MD [address] [place] [address], [address] [phone] 04/11/2024 15:00 EDT Telemedicine [facility] Hematology & Oncology - [address] [phone] Alisson Carreon MD [address] [place] [address] 2 [place] [phone] 04/13/2024 13:30 EDT Appointment [facility] Hematology & Oncology - [address] [id number] 04/13/2024 14:00 EDT Appointment [facility] Hematology & Oncology - [address] [phone] 04/16/2024 10:[address] [facility] Palliative Care Services [address] [place] [address] Chichi Woods MD [address] [facility], [address] [phone] 04/24/2024 9:00 EST Appointment [facility] Radiology CT Outpatient - [address] [id number] 04/24/2024 11:[address] [facility] Breast Imaging - [address] [id number] 04/27/2024 12:00 EST Appointment [facility] Hematology & Oncology - [address] [id number] 05/02/2024 15:00 EST Telemedicine [facility] Hematology & Oncology - [address] [phone] Alisson Carreon MD [address] [place] [address], [facility], Level [address] [place] [phone] 05/04/2024 10:[address] [facility] Cardiology - [place] [place] [address] 05/04/2024 11:30 EST Appointment [facility] Hematology & Oncology - [address] [phone] 05/04/2024 12:00 EST Appointment [facility] Hematology & Oncology - [address] [phone] 06/12/2024 13:00 EST Appointment [facility] Center Radiology CT - [address] [phone] documented as of this encounter Results * PROTIME (08/13/2022 12:38 EST) I.N.R. 1.1 0.9 - 1.1 Ratio 08/13/2022 14:01 [facility] Pro Time 11.9 9.7 - 12.8 secs 08/13/2022 14:01 [facility] Blood VENOUS BLOOD / Unknown Venipuncture / Unknown 08/13/2022 12:38 EST 08/13/2022 13:44 EST Narrative [facility] - 08/13/2022 14:01 EST Moderate Intensity Coumadin INR = 2.0-3.0 Adjustments in anticoagulant therapy dose should be based on the INR and NOT on the Protime. David Moya MD HEMATOLOGY & PF4 ORDERABLES [facility] [address] [place] [address] * (ABNORMAL) COMPREHENSIVE METABOLIC PANEL (CMP) (08/13/2022 12:38 EST) Sodium 141 136 - 145 mmol/L 08/13/2022 14:15 [facility] Potassium 4.5 3.5 - 5.0 mmol/L 08/13/2022 14:15 [facility] Chloride 103 96 - 110 mmol/L 08/13/2022 14:15 [facility] CO2 Total 27 22 - 32 mmol/L 08/13/2022 14:15 [facility] Glucose 95 70 - 100 mg/dL 08/13/2022 14:15 [facility] BUN 17 10 - 26 mg/dL 08/13/2022 14:15 [facility] Creatinine 0.69 0.52 - 1.04 mg/dL 08/13/2022 14:15 [facility] eGFR 99 >60 mL/min/1.7 3m2 08/13/2022 14:15 [facility] Total Protein 6.8 6.3 - 8.2 g/dL 08/13/2022 14:15 [facility] Albumin 3.9 3.4 - 4.9 g/dL 08/13/2022 14:15 [facility] Alkaline Phosphatase 190(H) 38 - 126 U/L 08/13/2022 14:15 [facility] AST 69(H) 15 - 46 U/L 08/13/2022 14:15 [facility] ALT 37(H) <35 U/L 08/13/2022 14:15 [facility] Bilirubin, Total 0.9 <1.4 mg/dL 08/14/19 14:15 [facility] Calcium 9.7 8.5 - 10.5 mg/dL 08/13/2022 14:15 [facility] Albumin/Globulin Ratio 1.3 1.0 - 2.5 08/13/2022 14:15 [facility] Anion Gap 11 5 - 14 08/13/2022 14:15 [facility] Blood VENOUS BLOOD / Unknown Venipuncture / Unknown 08/13/2022 12:38 EST 08/13/2022 13:45 EST David Moya MD CHEMISTRY & BLOOD GAS ORDERABLES Performing Organization Address [facility]/State/[facility] Co de Phone Number [facility] [address] [place] [address] * (ABNORMAL) COMPLETE BLOOD COUNT (08/13/2022 12:38 EST) WBC 3.95(L) 4.00 - 12.40 K/cmm 08/13/2022 13:58 [facility] RBC 3.72(L) 3.86 - 5.04 M/cmm 08/13/2022 13:58 [facility] Hemoglobin 12.9 11.6 - 15.2 gm/dL 08/13/2022 13:58 [facility] HCT 38.3 34.9 - 44.4 % 08/13/2022 13:58 [facility] MCV 103(H) 81 - 98 fl 08/13/2022 13:58 [facility] MCH 34.7(H) 26.7 - 33.3 pg 08/13/2022 13:58 [facility] MCHC 33.7 32.1 - 35.9 gm/dL 08/13/2022 13:58 [facility] RDW-CV 18.1(H) <14.7 % 08/13/2022 13:58 [facility] RDW-SD 66.4(H) <50.4 fl 08/13/2022 13:58 [facility] PLT 126(L) 141 - 377 K/cmm 08/13/2022 13:58 [facility] MPV 11.1 9.5 - 12.7 fl 08/13/2022 13:58 [facility] Blood VENOUS BLOOD / Unknown Venipuncture / Unknown 08/13/2022 12:38 EST 08/13/2022 13:46 EST David Moya MD HEMATOLOGY & PF4 ORDERABLES Performing Organization Address City/State/[facility] Co de Phone Number [facility] [address] [place] [address] documented in this encounter Visit Diagnoses Diagnosis Liver metastases- Primary Secondary malignant neoplasm of liver documented in this encounter Care Teams Creative Writing English Professor Relationship Specialty Start Date End Date Linda Blancas MD [facility] [address] [place] [address] PCP - General 01/06/11 Adolfo Carreno MD [address] [phone] General Surgery 04/26/19 Augustina Colin MD PhD [address] [place] [phone] Medical Oncology 04/26/19 documented as of this encounter
--- OUTSIDE RECORDS SUMMARY | 2024-03-20 14:47 | XMS_ITS | Encounter Summary ---
Author Organization [facility] Address [address] [place] [address] Care Team Providers Care Dialysis Registered Nurse Name Role Phone Linda Blancas MD Primary Care Provider [phone] Adolfo Carreno MD Unavailable [phone] Augustina Colin MD PhD Unavailable Unavailable Reason for Visit * Radiology Services (Routine/Next Available) - Authorization Not Required Specialty Diagnoses / Procedures Referred By Contac t Referred To Contact Nuclear Medicine Diagnoses Metastatic breast cancer Procedures NM BONE WHOLE BODY Augustina Colin MD PhD [facility] Referral ID Status Reason Start Date Expiration Date Visits Requested Visits Authorized [id number] Authorization Not Required 2 1 1 Encounter Details Date Type Department Care Team (Latest Contact Info) Description 07/20/2022 11:21 EST - 07/20/2022 23:59 EST [facility] Radiology Nuclear Medicine and PET - [address] [address] Discharge Disposition: Home or Self Care Social [...] Tablets by mouth as needed. 12/07/2023 mv-mn/C/glutamin/lysin/h [id number] (AIRBORNE, ASCORBATE SODIUM, ORAL) Take by mouth [...] Contact Info) Description 04/02/2024 10:30 EDT Appointment [facility] Interventional Radiology Unit [address] [place] [address] [phone] 04/02/2024 15:15 EDT Office Visit [facility] Surgical Oncology - [address] 749401 Adolfo Carreno MD [address] [place] [phone] 04/05/2024 9:30 EDT Telemedicine [facility] Palliative Care Services [address] [place] [address] [phone] Chichi Woods MD [address] [place] [phone] 04/11/2024 15:00 EDT Telemedicine [facility] Hematology & Oncology [address] 928351 Alisson Carreon MD [address] [place] [phone] 04/13/2024 13:30 EDT Appointment [facility] Hematology & Oncology [address] [id number] 04/13/2024 14:00 EDT Appointment [facility] Hematology & Oncology [address] [phone] 04/16/2024 10:00 EST Telemedicine [facility] Palliative Care Services [address] [place] [address] [phone] Chichi Woods MD [address] [place] [address], [address] [phone] 04/24/2024 9:00 EST Appointment [facility] Radiology CT Outpatient - [address] [id number] 04/24/2024 11:00 EST Appointment [facility] Breast Imaging - [facility] S [address] [id number] 04/27/2024 12:00 EST Appointment [facility] Hematology & Oncology [address] [phone] 05/02/2024 15:00 EST Telemedicine [facility] Hematology & Oncology [address] 238671 Alisson Carreon MD [address] [place] [address], Level [address] [place] [phone] 05/04/2024 10:15 EST Ancillary Procedure [facility] Cardiology - [address] [place], [place] [phone] 05/04/2024 11:30 EST Appointment [facility] Hematology & Oncology [address] [phone] 05/04/2024 12:00 EST Appointment [facility] Hematology & Oncology - [address] [id number] 06/12/2024 13:00 EST Appointment [facility] Radiology CT - [address] [phone] documented as of this encounter Procedures Procedure [...] on filedocumented in this encounter Care Teams Dialysis Registered Nurse Relationship Specialty Start Date End Date Lidna Blancas MD [facility] [address] [place] [address] PCP - General 01/06/11 Adolfo Carreno MD [address] [place] [address] 2 [place] [phone] General Surgery 04/26/19 Augustina Colin MD PhD [address] [place] [phone] Medical Oncology 04/26/19 documented as of this encounter
--- OUTSIDE RECORDS SUMMARY | 2024-03-20 14:47 | XMS_ITS | Encounter Summary ---
Author Organization [facility] Address [address] [place] [address] Care Team Providers Care Evaporator Operator Molasses Name Role Phone Linda Blancas MD Primary Care Provider [phone] Adolfo Carreno MD Unavailable [phone] Augustina Colin MD PhD Unavailable Unavailable Encounter Details Date Type Department Care Team (Late st Contact Info) Description 07/22/2022 Specialty Pharmacy [facility] Ambulatory [facility] - [facility] [address] [place], [place] 405341 Allen Day, [facility] BLACK [...] as of this encounter Progress Notes * Julia Guerrero - 07/22/2022 1150 EST Next OV 07/27, sent refill request to Hem/Onc nurses. * Ingrid Goldman - 07/22/2022 1150 EST Still waiting on RX, give one more day--Just kidding, RX was in que! * Ana Laura Cadet - 07/22/2022 1150 EST Medication Financial Assistance Eligibility for financial assistance has been evaluated for Capecitabine due to high cost of $1000/month. - Foundation Funding: None available at time of review - Health Assistance Program: Referred, pending result - Patient Assistance Program (Free Drug): Not applicable Patient has been informed of medication cost and available assistance noted above. Ana Laura Cadet 07/23/2022 documented in this encounter Plan of Treatment Upcoming Encounters Date Type Department Care Team (Late st Contact Info) Description 04/02/2024 10:30 EDT Appointment [facility] Interventional Radiology Unit [address] [place] [address] [phone] 04/02/2024 15:15 EDT Office Visit [facility] Surgical Oncology - [address] [phone] Adolfo Carreno MD 111 [facility], Level 2 [place] [phone] 04/05/2024 9:30 EDT Telemedicine [facility] Palliative Care Services [address] [place] [address] [phone] Chichi Woods MD [address] [place] [address] [phone] 04/11/2024 15:00 EDT Telemedicine [facility] Hematology & Oncology - [address] [phone] Alisson Carreon MD [address] [place] [address], Level [address] [place] [phone] 04/13/2024 13:30 EDT Appointment [facility] Hematology & Oncology [address] [phone] 04/13/2024 14:00 EDT Appointment [facility] Hematology & Oncology [address] 539181 04/16/2024 10:00 EST Telemedicine [facility] Palliative Care Services [address] [place] [address] [phone] Chichi Woods MD [address] [place] [address] [phone] 04/24/2024 9:00 EST Appointment [facility] Radiology CT Outpatient - [address] [address] 04/24/2024 11:00 EST Appointment [facility] Breast Imaging - [address] [id number] 04/27/2024 12:00 EST Appointment [facility] Hematology & Oncology - [address] [id number] 05/02/2024 15:00 EST Telemedicine [facility] Hematology & Oncology - [address] [phone] Alisson Carreon MD [address] [place] [address] [phone] 05/04/2024 10:15 EST Ancillary Procedure [facility] Cardiology - [address] [place], [place] [phone] 05/04/2024 11:30 EST Appointment [facility] Hematology & Oncology [address] [id number] 05/04/2024 12:00 EST Appointment [facility] Hematology & Oncology [address] [id number] 06/12/2024 13:00 EST Appointment [facility] Radiology CT - [address] [phone] documented as of this encounter Visit Diagnoses Not on filedocumented in this encounter Care Teams Evaporator Operator Molasses Relationship Specialty Start Date End Date Linda Blancas MD [facility] [address] [place] [address] PCP - General 01/06/11 Adolfo Carreno MD [address] [place] [address] [phone] General Surgery 04/26/19 Augustina Colin MD PhD [address] [place] [phone] Medical Oncology 04/26/19 documented as of this encounter
--- OUTSIDE RECORDS SUMMARY | 2024-03-20 14:47 | XMS_ITS | Encounter Summary ---
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 Phlebotomy Liver metastases (HCC-CMS) (HCC) (HCC-CMS) Social History Tobacco Use Types Packs/Day [...] Contact Info) Description 04/02/2024 10:30 EDT Appointment [facility] Interventional Radiology Unit [address] [place] [address] [phone] 04/02/2024 15:15 EDT Office Visit [facility] Surgical Oncology - [address] [phone] Adolfo Carreno MD [address] [place] [address] [phone] 04/05/2024 9:30 EDT Telemedicine [facility] Palliative Care Services [address] [place] [address] [phone] Chichi Woods MD [address] [place] [address] [phone] 04/11/2024 15:00 EDT Telemedicine [facility] Hematology & Oncology [address] [phone] Alisson Carreon MD [address] [place] [address] [phone] 04/13/2024 13:30 EDT Appointment [facility] Hematology & Oncology [address] [phone] 04/13/2024 14:00 EDT Appointment [facility] Hematology & Oncology [address] [phone] 04/16/2024 10:00 EST Telemedicine [facility] - [facility] Palliative Care Services [address] [place] [address] [phone] Chichi Woods MD [address] [place] [address], [address] [phone] 04/24/2024 9:00 EST Appointment [facility] Radiology CT Outpatient - [address] [id number] 04/24/2024 11:00 EST Appointment [facility] Breast Imaging - [facility] [address] [phone] 04/27/2024 12:00 EST Appointment [facility] Hematology & Oncology - [address] [phone] 05/02/2024 15:00 EST Telemedicine [facility] Hematology & Oncology - [address] [phone] Alisson Carreon MD [address] [place] [address], Level 2 [place] [phone] 05/04/2024 10:15 EST Ancillary Procedure [facility] Cardiology [place] [address] [place] [address] 05/04/2024 11:30 EST Appointment [facility] Hematology & Oncology - [address] [phone] 05/04/2024 12:00 EST Appointment [facility] Hematology & Oncology [address] [phone] 06/12/2024 13:00 EST Appointment [facility] Radiology CT - [address] [phone] documented as of this encounter Procedures Procedure Name Priority Date/Time Associated Diagnosis Comments PROTIME Routine 08/13/2022 12:38 EST Liver metastases (HCC-CMS) (HCC) (HCC-CMS) COMPLETE BLOOD COUNT Routine 08/13/2022 12:38 EST Liver metastases (HCC-CMS) (HCC) (HCC-CMS) COMPREHENSIVE METABOLIC PANEL (CMP) Routine 08/13/2022 12:38 EST Liver metastases (HCC-CMS) (HCC) (HCC-CMS) documented in this encounter Results * PROTIME (08/13/2022 12:38 EST) Pathologist [facility] I.N.R. 1.1 0.9 - 1.1 Ratio 08/13/2022 14:01 [facility] Pro Time 11.9 9.7 - 12.8 secs 08/13/2022 14:01 [facility] Blood VENOUS BLOOD / Unknown Venipuncture / Unknown 08/13/2022 12:38 EST 08/13/2022 13:44 EST Narrative [facility] - 08/13/2022 14:01 EST Moderate Intensity Coumadin INR = 2.0-3.0 Adjustments in anticoagulant therapy dose should be based on the INR and NOT on the Protime. David Moya MD HEMATOLOGY & PF4 ORDERABLES [facility] [address] [place] [address] * (ABNORMAL) COMPREHENSIVE METABOLIC PANEL (CMP) (08/13/2022 12:38 EST) Pathologist [facility] Sodium 141 136 - 145 mmol/L 08/13/2022 14:15 [facility] Potassium 4.5 3.5 - 5.0 mmol/L 08/13/2022 14:15 [facility] Chloride 103 96 - 110 mmol/L 08/13/2022 14:15 [facility] CO2 Total 27 22 - 32 mmol/L 08/13/2022 14:15 [facility] Glucose 95 70 - 100 mg/dL 08/13/2022 14:15 [facility] BUN 17 10 - 26 mg/dL 08/13/2022 14:15 [facility] Creatinine 0.69 0.52 - 1.04 mg/dL 08/13/2022 14:15 [facility] eGFR 99 >60 mL/min/1.7 3m2 08/13/2022 14:15 [facility] Total Protein 6.8 6.3 - 8.2 g/dL 08/13/2022 14:15 [facility] Albumin 3.9 3.4 - 4.9 g/dL 08/13/2022 14:15 [facility] Alkaline Phosphatase 190(H) 38 - 126 U/L 08/13/2022 14:15 [facility] AST 69(H) 15 - 46 U/L 08/13/2022 14:15 [facility] ALT 37(H) <35 U/L 08/13/2022 14:15 [facility] Bilirubin, Total 0.9 <1.4 mg/dL 08/14/19 23 14:15 [facility] Calcium 9.7 8.5 - 10.5 mg/dL 08/13/2022 14:15 [facility] Albumin/Globulin Ratio 1.3 1.0 - 2.5 08/13/2022 14:15 [facility] Anion Gap 11 5 - 14 08/13/2022 14:15 [facility] Blood VENOUS BLOOD / Unknown Venipuncture / Unknown 08/13/2022 12:38 EST 08/13/2022 13:45 EST David Moya MD CHEMISTRY & BLOOD GAS ORDERABLES [facility] [address] [place] [address] * (ABNORMAL) COMPLETE BLOOD COUNT (08/13/2022 12:38 EST) WBC 3.95(L) 4.00 - 12.40 K/cmm 08/13/2022 13:58 [facility] RBC 3.72(L) 3.86 - 5.04 M/cmm 08/13/2022 13:58 [facility] Hemoglobin 12.9 11.6 - 15.2 gm/dL 08/13/2022 13:58 [facility] HCT 38.3 34.9 - 44.4 % 08/13/2022 13:58 [facility] MCV 103(H) 81 - 98 fl 08/13/2022 13:58 [facility] MCH 34.7(H) 26.7 - 33.3 pg 08/13/2022 13:58 [facility] MCHC 33.7 32.1 - 35.9 gm/dL 08/13/2022 13:58 [facility] RDW-CV 18.1(H) <14.7 % 08/13/2022 13:58 [facility] RDW-SD 66.4(H) <50.4 fl 08/13/2022 13:58 [facility] PLT 126(L) 141 - 377 K/cmm 08/13/2022 13:58 [facility] MPV 11.1 9.5 - 12.7 fl 08/13/2022 13:58 [facility] Blood VENOUS BLOOD / Unknown Venipuncture / Unknown 08/13/2022 12:38 EST 08/13/2022 13:46 EST David Moya MD HEMATOLOGY & PF4 ORDERABLES [facility] [address] [place] [address] documented in this encounter Visit Diagnoses Diagnosis Liver metastases Secondary malignant neoplasm of liver documented in this encounter Care Teams Superintendent Warehouse Relationship Specialty Start Date End Date Linda Blancas MD [facility] [address] [place] [address] PCP - General 01/06/11 Adolfo Carreno MD [address] [place] [address], [facility] [address] [place] [phone] General Surgery 04/26/19 Augustina Colin MD PhD [address] [place] [address] 2 [place] [phone] Medical Oncology 04/26/19 documented as of this encounter
--- OUTSIDE RECORDS SUMMARY | 2024-03-20 14:47 | XMS_ITS | Encounter Summary ---
Author Organization [facility] Address [address] [place] [address] Care Team Providers Care Figure Refinisher And Repairer Name Role Phone Linda Blancas MD Primary Care Provider [phone] Adolfo Carreno MD Unavailable [phone] Augustina Colin MD PhD Unavailable Unavailable Encounter Details Date Type Department Care Team (Late st Contact Info) Description 06/08/2022 Orders Only [facility] Hematology & Oncology - [facility] [address] [place] [address] Augustina Colin, PhD Social History Tobacco Use [...] [facility] Inter[facility] Unit [address] [place] [address] [phone] 04/02/2024 15:15 EDT Office Visit [facility] Surgical Oncology - [address] [phone] Adolfo Carreno MD [address] [place] [address] [phone] 04/05/2024 9:30 EDT Telemedicine [facility] - [facility] Palliative Care Services [address] [place] [address] [phone] Chichi Woods MD [address] [place] [address] [phone] 04/11/2024 15:00 EDT Telemedicine [facility] Hematology & Oncology [address] [phone] Alisson Carreon MD [address] [place] [address] [phone] 04/13/2024 13:30 EDT Appointment [facility] Hematology & Oncology [address] [phone] 04/13/2024 14:00 EDT Appointment [facility] Hematology & Oncology [address] [phone] 04/16/2024 10:00 EST Telemedicine [facility] - [facility] Palliative Care Services [address] [place] [address] [phone] Chichi Woods MD [address] [place] [address], [address] [phone] 04/24/2024 9:00 EST Appointment [facility] Radiology CT Outpatient - [address] [phone] 04/24/2024 11:00 EST Appointment [facility] Breast Imaging - [facility] [address] [place], [place] [address]71 04/27/2024 12:00 EST Appointment [facility] Hematology & Oncology - [address] [phone] 05/02/2024 15:00 EST Telemedicine [facility] Hematology & Oncology - [address] [address] Alisson Carreon MD [address] [place] [address], [facility], Level [address] [place] [phone] 05/04/2024 10:15 EST Ancillary Procedure [facility] Cardiology - [address] [place], [place] [phone] 05/04/2024 11:30 EST Appointment [facility] Hematology & Oncology - [address] [phone] 05/04/2024 12:00 EST Appointment [facility] Hematology & Oncology [address] [phone] 06/12/2024 13:00 EST Appointment [facility] Radiology CT - [address] [phone] documented as of this encounter Visit Diagnoses Not on filedocumented in this encounter Care Teams Figure Refinisher And Repairer Relationship Specialty Start Date End Date Linda Blancas MD [facility] [address] [place] [address] PCP - General 01/06/11 Adolfo Carreno MD [address] [place] [address], [facility] [address] [place] [phone] General Surgery 04/26/19 Augustina Colin MD PhD [address] [place] [address], [facility] [address] [place] [address] Medical Oncology 04/26/19 documented as of this encounter
--- OUTSIDE RECORDS SUMMARY | 2024-03-20 14:47 | XMS_ITS | Encounter Summary ---
Author Organization [facility] Address [address] [place] [address] Care Team Providers Care Physician In Private Practice Name Role Phone Linda Blancas MD Primary Care Provider [phone] Adolfo Carreno MD Unavailable [phone] Augustina Colin MD PhD Unavailable Unavailable Reason for Referral * Radiology Services (Routine/Next Available) - Closed Specialty Diagnoses / Procedures Referred By Contac t Referred To Contact Radiology Diagnoses Liver metastasis Procedures MR ABDOMEN W JIMMIE CONTRAST David Moya MD [address] [place] [phone] [facility] Referral ID Status Reason Start Date Expiration Date Visits Re quested Visits Authorized [id number] Closed 07/30/2022 01/26/2023 1 1 Reason for Visit * Radiology Services (Routine/Next Available) - Closed Specialty Diagnoses / Procedures Referred By Doug hearn Referred To Contact Radiology Diagnoses Liver metastasis Procedures MR ABDOMEN W David Joseph MD [address] [place] [phone] [facility] Referral ID Status Reason Start Date Expiration Date Visits Re quested Visits Authorized [id number] Closed 07/30/2022 01/26/2023 1 1 Encounter Details Date Type Department Care Team (Latest Contact Info) Description 08/13/2022 9:53 EST - 08/13/2022 23:59 EST Hospital Encounter Malorie Mcknight [facility] [address] [place] [address] Liver metastasis (HCC-CMS) (HCC) (HCC-CMS) Discharge Disposition: Home or [...] Tablets by mouth as needed. 12/07/2023 mv-mn/C/glutamin/lysin/h [id number] (A[place], ASCORBATE SODIUM, ORAL) Take by mouth [...] [facility] Interventional Radiology Unit [address] [place] [address] 04/02/2024 15:15 EDT Office Visit [facility] Surgical Oncology - [facility] [address] [place] [address] Adolfo Carreno MD [address] [facility], Level [address] [place] [phone] 04/05/2024 9:30 EDT Telemedicine [facility] Palliative Care Services [address] [place] [address] Chichi Woods MD 111 [facility], [address] [phone] 04/11/2024 15:00 EDT Telemedicine [facility] Hematology & Oncology - [address] [phone] Alisson Carreon MD [address] [place] [address], [facility] 2 [place] [phone] 04/13/2024 13:30 EDT Appointment [facility] Hematology & Oncology [address] [phone] 04/13/2024 14:00 EDT Appointment [facility] Hematology & Oncology [address] [phone] 04/16/2024 10:00 EST Telemedicine [facility] - [facility] Palliative Care Services [address] [place] [address] [phone] Chichi Woods MD [address] [place] [address], [address] [phone] 04/24/2024 9:00 EST Appointment [facility] Radiology CT Outpatient - [address] [phone] 04/24/2024 11:00 EST Appointment [facility] Breast Imaging - [address] [phone] 04/27/2024 12:00 EST Appointment [facility] Hematology & Oncology - [address] [phone] 05/02/2024 15:00 EST Telemedicine [facility] Hematology & Oncology - [address] [phone] Alisson Carreon MD [address] [place] [address], [facility] 2 [place] [phone] 05/04/2024 10:15 EST Ancillary Procedure [facility] Cardiology - [address] [place] [address] 05/04/2024 11:30 EST Appointment [facility] Hematology & Oncology [address] [phone] 05/04/2024 12:00 EST Appointment [facility] Hematology & Oncology [address] [phone] 06/12/2024 13:00 EST Appointment [facility] Radiology CT [address] [phone] documented as of this encounter Procedures Procedure Name Priority Date/Time Associated Diagnosis Comments MR ABDOMEN W WO CONTRAST Routine 08/13/2022 10:44 EST Liver metastasis (HCC-CMS) (HCC) (HCC-CMS) documented in this encounter Results * MR ABDOMEN W WO CONTRAST (08/13/2022 10:44 EST) Anatomical Region Laterality Modality Body, Abdomen Magnetic Resonan ce 08/13/2022 11:3 9 EST Impressions 08/13/2022 11:39 EST 1. Signs of favorable treatment response, no areas of focal hepatic abnormal diffusion signal. Small essentially nonenhancing right lobe liver lesion decreased in size. 2. Mildly heterogeneous hepatic enhancement and patchy areas of increased T2 signal, likely treatment effect. 3. Cholelithiasis, no biliary ductal dilatation or acute gallbladder inflammation.. Narrative 08/13/2022 11:39 EST MR ABDOMEN W WO CONTRAST ??08/13/2022 10:15 AM Signs and Symptoms/Comments: ?? Liver mets s/p Y90 Technique: Cb-ckc-bxn-of-phase, T2-weighted, diffusion weighted images were followed by dynamic gadolinium enhanced T1 fat-suppressed gradient echo images of the abdomen. Subtraction imaging performed. Comparison: 02/25/2022,, 11/23/2021. CT angiogram 03/31/2022. Whole-body bone scan 07/20/2022 showing abnormal activity most of which outside of abdominal region. Findings: Lower chest: Partially included bilateral breast implants. No effusions. Hepatobiliary: Previously seen foci of restricted diffusion on prior b800 ??series imaging are no longer apparent. Small 7 mm lesion with mild peripheral enhancement and no central enhancement right lobe, measured 1.2 cm on prior.. There is mild heterogeneous enhancement of the liver parenchyma, new compared to prior, with new areas sheetlike increased T2 signal, likely post therapy effect. No new masses. Cholelithiasis, no biliary ductal dilatation or acute gallbladder inflammation. Spleen, pancreas, adrenal glands: Spleen, pancreas and adrenal glands without significant finding. Spleen upper limits normal in size. No adrenal mass.. No pancreatic ductal dilatation. Kidneys, proximal ureters: Normal renal enhancement. Scattered tiny cysts. No concerning renal findings. No hydronephrosis. Bowel: Included bowel without obstruction or acute inflammatory change. Peritoneal cavity: No abdominal free fluid. No fluid collection. Lymphovascular: Great vessels within normal limits. No abdominal adenopathy Abdominal wall: Free of hernias. Musculoskeletal: Post posterior spinal fusion changes, partially included. Altered signal posterior inferior left rib, portal venous #123, as well as altered signal right iliac crest, coronal T2 #17 correlate with whole-body bone scan findings, see that report for assessment of osseous metastases. Localizer: No additional findings. Procedure Note Pavan Ceron MD - 08/13/2022 MR ABDOMEN W WO CONTRAST 08/13/2022 10:15 AM Signs and Symptoms/Comments: Liver mets s/p Y90 Technique: Xy-dgk-zpe-of-phase, T2-weighted, diffusion weighted images were followedby dynamic gadolinium enhanced T1 fat-suppressed gradient echo images ofthe abdomen. Subtraction imaging performed. Comparison: 02/25/2022,, 11/23/2021. CT angiogram 03/31/2022. Whole-body bone scan07/20/2022 showing abnormal activity most of which outside of abdominalregion. Findings: Lower chest: Partially included bilateral breast implants. No effusions. Hepatobiliary: Previously seen foci of restricted diffusion on prior [id number] imaging are no longer apparent. Small 7 mm lesion with mildperipheral enhancement and no central enhancement right lobe, measured 1.2cm on prior.. There is mild heterogeneous enhancement of the liverparenchyma, new compared to prior, with new areas sheetlike increased [id number], likely post therapy effect. No new masses. Cholelithiasis, no biliary ductal dilatation or acute gallbladderinflammation. Spleen, pancreas, adrenal glands: Spleen, pancreas and adrenal glandswithout significant finding. Spleen upper limits normal in size. Noadrenal mass.. No pancreatic ductal dilatation. Kidneys, proximal ureters: Normal renal enhancement. Scattered tiny cysts.No concerning renal findings. No hydronephrosis. Bowel: Included bowel without obstruction or acute inflammatory change. Peritoneal cavity: No abdominal free fluid. No fluid collection. Lymphovascular: Great vessels within normal limits. No abdominaladenopathy Abdominal wall: Free of hernias. Musculoskeletal: Post posterior spinal fusion changes, partially included.Altered signal posterior inferior left rib, portal venous #123, as well asaltered signal right iliac crest, coronal T2 #17 correlate with whole-bodybone scan findings, see that report for assessment of osseousmetastases. Localizer: No additional findings. IMPRESSION 1. Signs of favorable treatment response, no areas of focal hepaticabnormal diffusion signal. Small essentially nonenhancing right lobe liverlesion decreased in size. 2. Mildly heterogeneous hepatic enhancement and patchy areas of increasedT2 signal, likely treatment effect. 3. Cholelithiasis, no biliary ductal dilatation or acute gallbladderinflammation.. David Moya MD IMG MRI JAIMEE ACOSTA documented in this encounter Visit Diagnoses Diagnosis Liver metastasis Secondary malignant neoplasm of liver documented in this encounter Administered Medications Inactive Administered Medications - up to 3 most recent administrations Medication Order MAR Action Action Date Dose Rate Site gadoterate meglumine solution 1-30 mL 1-30 mL, intravenous, Once in imaging, 1 dose, Starting on Tue08/13/22 at 1044, Until Tue08/13/22 at 1045, Routine, Imaging Protocol Orders Given 08/13/2022 10:45 EST 11 mL documented in this encounter Orders Medications Ordered That Vj ht Not Have Been Administered Count Last Ordered Date First Ordered Date gadoterate meglumine solution 1-30 mL 1 08/2022 documented in this encounter Care Teams Physician In Private Practice Relationship Specialty Start Date End Date Linda Blancas MD [facility] [address] [place] [address] PCP - General 01/06/11 Adolfo Carreno MD [address] [place] [phone] General Surgery 04/26/19 Augustina Colin MD PhD [address] [place] [phone] Medical Oncology 04/26/19 documented as of this encounter
--- OUTSIDE RECORDS SUMMARY | 2024-03-20 14:47 | XMS_ITS | Encounter Summary ---
Author Organization [facility] Address [address] [place] [address] Care Team Providers Care Store Team Leader Name Role Phone Linda Blancas MD Primary Care Provider Adolfo Carreno MD Unavailable [phone] Augustina Colin MD PhD Unavailable Unavailable Reason for Visit * Medication Prior Authorization (See Order Priority) - Order Cancelled Specialty Diagnoses / Procedures Referred By Doug hearn Referred To Contact Diagnoses Metastatic breast cancer Osteopenia of necks of both femurs Augustina Colin, PhD Referral ID Status Reason Start Date Expiration Date Visits Requested Visits Authorized [id number] Order Cancelled Specialty Services Required 12/02/2021 06/12/2022 3 3 Encounter Details Date Type Department Care Team (Latest Contact Info) Description 06/10/2022 7:37 EST - 06/10/2022 23:59 EST Hospital Encounter [facility] [address], [place] [address] Osteopenia of necks of both femurs (Primary Dx); Liver metastasis (HCC-CMS) (HCC) (HCC-CMS); Metastatic breast cancer (HCC-CMS) (HCC) (HCC-CMS) Discharge [...] Sign Reading Time Taken Comments Blood Pressure 128/78 06/10/2022 0907 EST Pulse - - Temperature 36.3 ??C (97.3 ??F) 06/10/2022 0907 EST Respiratory Rate 16 06/10/2022 0907 EST Oxygen Saturation 98% 06/10/2022 0907 EST Inhaled Oxygen Concentration - - Weight [...] Tablets by mouth as needed. 12/07/2023 mv-mn/C/glutamin/lysin/h [id number] (A[place]NE, ASCORBATE SODIUM, ORAL) Take by mouth [...] Code Departure Means Destination Home or Self Nursing Home documented in this encounter Progress Notes * Tracey Ballard, SHELLEY - 06/10/2022 0900 EST Sunshine Pleitez arrived to [facility] for zometa infusion related to diagnosis code of M81,0 Identification verified verbally and on patient wristband. Signs and symptoms of adverse infusion reaction reviewed with patient. PIV was placed by RN per protocol. Patient tolerated well. Premedications: none Main Medication and dose: Zoledronic acid 4 mg IV 0925 zometa Infusion started. 0948 - zometa Infusion completed. Infusion completed. Patient tolerated without s/s of adverse reaction. IV access removed. Dry sterile dressing applied. Patient Education Topic: Zometa 4 mg Method: Verbal Taught to: Patient Barriers: None Outcomes: independent Signs and symptoms of allergic infusion-related reaction reviewed. Advised patient to call 911 for difficulty breathing and to report any new symptoms to the ordering Provider. Patient verbalizes understanding. Discharged home in stable condition. documented in this encounter Plan of Treatment Upcoming Encounters Date Type Department Care Team (Late st Contact Info) Description 04/02/2024 10:30 EDT Appointment [facility] Interventional Radiology Unit [address] [place] [address] 04/02/2024 15:15 EDT Office Visit [facility] Surgical Oncology - [facility] [place] [address], [place] [phone] Adolfo Carreno MD [address] [place] [address] 2 [place] [phone] 04/05/2024 9:30 EDT Telemedicine [facility] Palliative Care Services [address] [place] [address] Chichi Woods MD [address] [place] [phone] 04/11/2024 15:00 EDT Telemedicine [facility] Hematology & Oncology - [address] [phone] Alisson Carreon MD [address] [place] [address] 2 [place] [phone] 04/13/2024 13:30 EDT Appointment [facility] Hematology & Oncology - [address] 864101 04/13/2024 14:00 EDT Appointment [facility] Hematology & Oncology - [address] [phone] 04/16/2024 10:00 EST Telemedicine [facility] Palliative Care Services [address] [place] [address] 135171 Chichi Woods MD [address] [place] [address] [phone] 04/24/2024 9:00 EST Appointment [facility] Radiology CT Outpatient - [address] [id number] 04/24/2024 11:00 EST Appointment [facility] Breast Imaging - [address] [place] [address] 04/27/2024 12:00 EST Appointment [facility] Hematology & Oncology - [address] [id number] 05/02/2024 15:00 EST Telemedicine [facility] Hematology & Oncology [address] [phone] Alisson Carreon MD [address] [place] [address], Level 2 [place] [phone] 05/04/2024 10:15 EST Ancillary Procedure [facility] Cardiology - [address] [place] [address] 05/04/2024 11:30 EST Appointment [facility] Hematology & Oncology - [address] [phone] 05/04/2024 12:00 EST Appointment [facility] Hematology & Oncology - [address] 718231 06/12/2024 13:00 EST Appointment [facility] Radiology CT - [address] 014991 documented as of this encounter Procedures Procedure Name Priority Date/Time Associated Diagnosis Comments CA 27.29 Routine 06/10/2022 9:23 EST Metastatic breast cancer (HCC-CMS) (HCC) (HCC-CMS) PROTIME Routine 06/10/2022 9:23 EST Liver metastasis (HCC-CMS) (HCC) (HCC-CMS) COMPLETE BLOOD COUNT AND DIFFERENTIAL Routine 06/10/2022 9:23 EST Liver metastasis (HCC-CMS) (HCC) (HCC-CMS) COMPREHENSIVE METABOLIC PANEL (CMP) Routine 06/10/2022 9:23 EST Liver metastasis (HCC-CMS) (HCC) (HCC-CMS) documented in this encounter Results * (ABNORMAL) CA 27.29 (06/10/2022 9:23 EST) CA 27.29 76.8(H) <38.0 U/mL 06/11/2022 10:01 [facility] Comment: NOTE: Serum CA 27.29 concentration should not be interpreted as absolute evidence for the presence or absence of malignant disease. Assayed on Siemens ADVIA ContaAzulaur XPT using chemiluminescent technology. ??Values obtained by using different assay methods cannot be used interchangeably. Blood VENOUS BLOOD / Unknown Venipuncture / Unknown 06/10/2022 9:23 EST 06/10/2022 11:19 EST Augustina Colin MD PhD CHEMISTRY & BLOOD GA S ORDERABLES Performing Organization Address City/State/[facility] Co de Phone Number [facility] [address] [place] [address] * (ABNORMAL) COMPLETE BLOOD COUNT AND DIFFERENTIAL (06/10/2022 9:23 EST) WBC 7.30 4.00 - 12.40 K/cmm 06/10/2022 11:31 [facility] RBC 4.23 3.86 - 5.04 M/cmm 06/10/2022 11:31 [facility] Hemoglobin 14.6 11.6 - 15.2 gm/dL 06/10/2022 11:31 [facility] HCT 43.8 34.9 - 44.4 % 06/10/2022 11:31 [facility] MCV 104(H) 81 - 98 fl 06/10/2022 11:31 [facility] MCH 34.5(H) 26.7 - 33.3 pg 06/10/2022 11:31 [facility] MCHC 33.3 32.1 - 35.9 gm/dL 06/10/2022 11:31 [facility] RDW-CV 14.1 <14.7 % 06/10/2022 11:31 [facility] RDW-SD 53.3(H) <50.4 fl 06/10/2022 11:31 [facility] PLT 110(L) 141 - 377 K/cmm 06/10/2022 11:31 [facility] MPV 11.6 9.5 - 12.7 fl 06/10/2022 11:31 [facility] % Neutrophils 70.0 % 06/10/2022 11:31 [facility] % Lymphocytes 14.0 % 06/10/2022 11:31 [facility] % Monocytes 14.7 % 06/10/2022 11:31 [facility] % Eosinophils 0.8 % 06/10/2022 11:31 [facility] % Basophils 0.4 % 06/10/2022 11:31 [facility] % Immature Grans 0.1 % 06/10/20 11:31 [facility] Absolute Neutrophils 5.11 2.20 - 8.85 K/cmm 06/10/2022 11:31 [facility] Absolute Lymphocytes 1.02(L) 1.09 - 3.30 K/cmm 06/10/2022 11:31 [facility] Absolute Monocytes 1.07(H) 0.10 - 0.80 K/cmm 06/10/2022 11:31 [facility] Absolute Eosinophils 0.06 0.03 - 0.61 K/cmm 06/10/2022 11:31 [facility] ABS Basophils 0.03 0.01 - 0.11 K/cmm 06/10/2022 11:31 [facility] Absolute Immature Grans 0.01 0.00 - 0.06 K/cmm 06/10/2022 11:31 [facility] Type of Differential: Auto 06/10/2022 11:31 [facility] Blood VENOUS BLOOD / Unknown Venipuncture / Unknown 06/10/2022 9:23 EST 06/10/2022 11:18 EST David Moya MD PACKAGES & D NA PROBE ORDERABLES Performing Organization Address City/State/[facility] de Phone Number [facility] [address] [place] [address] * PROTIME (06/10/2022 9:23 EST) Pathologist [facility] I.N.R. 0.9 0.9 - 1.1 Ratio 06/10/2022 11:28 [facility] Pro Time 10.4 9.7 - 12.8 secs 06/10/2022 11:28 [facility] Blood VENOUS BLOOD / Unknown Venipuncture / Unknown 06/10/2022 9:23 EST 06/10/2022 11:01 EST Narrative [facility] - 06/10/2022 11:28 EST Moderate Intensity Coumadin INR = 2.0-3.0 Adjustments in anticoagulant therapy dose should be based on the INR and NOT on the Protime. David Moya MD HEMATOLOGY & PF4 ORDERABLES Performing Organization Address [facility] de Phone Number [facility] [address] [place] [address] * (ABNORMAL) COMPREHENSIVE METABOLIC PANEL (CMP) (06/10/2022 9:23 EST) [facility] Sodium 138 136 - 145 mmol/L 06/10/2022 12:07 [facility] Potassium 5.4(H) 3.5 - 5.0 mmol/L 06/10/2022 12:07 [facility] Comment:Moderate hemolysis i dentified, interpret with caution as hemolysis will elevate potassium result. Chloride 103 96 - 110 mmol/L 06/10/2022 12:07 [facility] CO2 Total 27 22 - 32 mmol/L 06/10/2022 12:07 [facility] Glucose 66(L) 70 - 100 mg/dL 06/10/2022 12:07 [facility] BUN 16 10 - 26 mg/dL 06/10/2022 12:07 [facility] Comment:Moderate hemolysis i dentified, interpret with caution as results may be affected due to hemolysis. Creatinine 0.61 0.52 - 1.04 mg/dL 06/10/2022 12:07 [facility] eGFR 102 >60 mL/min/1.7 3m2 06/10/2022 12:07 [facility] Total Protein 7.4 6.3 - 8.2 g/dL 06/10/2022 12:07 [facility] Comment:Moderate hemolysis i dentified, interpret with caution as results may be affected due to hemolysis. Albumin 4.0 3.4 - 4.9 g/dL 06/10/2022 12:07 [facility] Comment:Moderate hemolysis i dentified, interpret with caution as results may be affected due to hemolysis. Alkaline Phosphatase 197(H) 38 - 126 U/L 06/10/2022 12:07 [facility] Comment:Moderate hemolysis i dentified. Hemolysis will decrease ALKP result. Suggest re-evaluation if clinically indicated AST 105(H) 15 - 46 U/L 06/10/2022 12:07 [facility] Comment:Moderate hemolysis i dentified, interpret with caution as results may be affected due to hemolysis. ALT 55(H) <35 U/L 06/10/2022 12:07 [facility] Bilirubin, Total 1.3 <1.4 mg/dL 06/10/20 12:07 [facility] Comment:Moderate hemolysis i dentified, interpret with caution as results may be affected due to hemolysis. Calcium 9.3 8.5 - 10.5 mg/dL 06/10/2022 12:07 [facility] Albumin/Globulin Ratio 1.2 1.0 - 2.5 06/10/2022 12:07 [facility] Anion Gap 8 5 - 14 06/10/2022 12:07 [facility] Blood VENOUS BLOOD / Unknown Venipuncture / Unknown 06/10/2022 9:23 EST 06/10/2022 11:19 EST David Moya MD CHEMISTRY & BLOOD GAS ORDERABLES [facility] [address] [place] [address] documented in this encounter Visit Diagnoses Diagnosis Osteopenia of necks of both femurs- Primary Liver metastasis Secondary malignant neoplasm of liver Metastatic breast cancer documented in this encounter Administered Medications Inactive Administered Medications - up to 3 most recent administrations Medication Order MAR Action Action Date Dose Rate Site sodium chloride 0.9 % (NS) infusion at 100 mL/hr, 250 mL, intravenous, CONTINUOUS, Starting on Michelle 06/10/22 at 0800, Until Tue06/11/22 at 0914, Routine New Bag 06/10/2022 9:15 EST 250 mL 100 mL/hr zoledronic acid (ZOMETA) 4 mg/100 mL IVPB 4 mg 4 mg, intravenous, Administer over 20 Minutes, NOW X1, 1 dose, On Michelle 06/10/22 at 0900, Routine New Bag 06/10/2022 9:25 EST 4 mg documented in this encounter Orders Medications Ordered That Vj ht Not Have Been Administered Count Last Ordered Date First Ordered Date alteplase (CATHFLO ACTIVASE) injection 2 mg 1 06/10/2022 diphenhydrAMINE (BENADRYL) injection 50 mg 1 06/10/2022 EPINEPHrine (ADRENALIN) injection 0.3 mg 1 06/10/2022 heparin (PF) lock flush 500 Units 1 022 methylPREDNISolone sod suc(P F) (SOLU-MEDROL) injection 40 mg 1 06/10/2022 sodium chloride 0.9 % (flush) flush 20 mL 1 06/10/2022 Nursing Count Last Ordered Date First Orde red Date INFORMED CONSENT 1 06/10/2022 documented in this encounter Care Teams Store Team Leader Relationship Specialty Start Date End Date Linda Blancas MD [facility] [address] [place] [address] PCP - General 01/06/11 Adolfo Carreno MD [address] [place] [phone] General Surgery 04/26/19 Augustina Colin MD PhD [address] [place] [address] 2 [place] [phone] Medical Oncology 04/26/19 documented as of this encounter
--- OUTSIDE RECORDS SUMMARY | 2024-03-20 14:47 | XMS_ITS | Encounter Summary ---
Author Organization [facility] Address [address] [place] [address] Care Team Providers Care Fast Food Attendant Name Role Phone Linda Blancas MD Primary Care Provider Adolfo Carreno MD Unavailable [phone] Augustina Colin MD PhD Unavailable Unavailable Reason for Visit * Reason Comments Follow-up 1 month follow up Encounter Details Date Type Department Care Team (Late st Contact Info) Description 08/13/2022 12:45 EST Office Visit [facility] Ophthalmology - [address] [phone] Tylor oBnilla MD [address] [facility], Level 5 [place] [phone] Social History Tobacco Use Types [...] Progress Notes * Tylor Bonilla MD - 08/13/2022 1245 EST Chief Complaint Patient presents with ??? Follow-up 1 month follow up Comments Follow-up Additional comments: 1 month follow up Comments Retinal tears left eye, lattice degeneration both eyes and PVD both eyes. S/p laser to tears left eye 07/13/2022 HPI Location: Left eye Pain: 0 - No pain Quality: Blurry Severity: Mild Duration: Days Timing: Constant Lasts: Continuous Context: Retinal tears left eye, lattice degeneration both eyes and PVD both eyes. Modifying factors: S/p laser to tears left eye 07/13/2022 Associated Signs & Symptoms: Vision is stable, very few floaters. no flashes and no eye pain today Visual Fluctuations: Floaters Attestation: Base Eye Exam Visual Acuity (Snellen - Linear) Right Left Dist sc 20/25 -2 20/70 Dist ph sc 20/30 Lasik both eyes, corrected mono-vision. Left eye is near corrected Tonometry (Applanation, 13:03) Right Left Pressure 9 8 Neuro/Psych Oriented x3: Yes Mood/Affect: Normal Dilation Both eyes: Tropicamide 1%, Phenylephrine 2.5% @ 13:03 Slit Lamp and Fundus Exam Slit Lamp [...] DIAGNOSES: 1. Retinal tear of left eye 2. Bilateral retinal lattice degeneration 3. PVD (posterior vitreous detachment), both eyes Assessment Retinal tear(s) left eye Two retinal tear (11 and 1:30) without detachment surrounded by laser retinopexy scars No new tears. ?? Posterior vitreous detachment both eyes Longstanding right eye. June 2022 left eye, with vitreal heme. Retina attached both eyes ?? Lattice degeneration both eyes No tears or traction right eye Monitor Retinal detachment warnings discussed Recheck 2 months, sooner prn I have reviewed the past medical, family, [...] he is personally performing the service. JOSH Dowd (Scribe) documented in this encounter Plan of Treatment Upcoming Encounters Date Type Department Care Team (Late st Contact Info) Description 04/02/2024 10:30 EDT Appointment [facility] Interventional Radiology Unit [address], [place] [phone] 04/02/2024 15:15 EDT Office Visit [facility] Surgical Oncology - [facility] [address], [place] [phone] Adolfo Carreno MD 111 [facility], Level 2 [place] [phone] 04/05/2024 9:30 EDT Telemedicine [facility] - [facility] Palliative Care Services [address], [place] [phone] Chichi Woods MD 111 [facility], [address] [phone] 04/11/2024 15:00 EDT Telemedicine [facility] Hematology & Oncology - [address] [phone] Alisson Carreon MD [address] [place] [address] 2 [place] [phone] 04/13/2024 13:30 EDT Appointment [facility] Hematology & Oncology - [address] [phone] 04/13/2024 14:00 EDT Appointment [facility] Hematology & Oncology - [address] [phone] 04/16/2024 10:00 EST Telemedicine [facility] - [facility] Palliative Care Services [address] [place] [address] [phone] Chichi Woods MD [address] [place] [phone] 04/24/2024 9:00 EST Appointment [facility] Radiology CT Outpatient - [address] [id number] 04/24/2024 11:00 EST Appointment [facility] Breast Imaging - [address] [id number] 04/27/2024 12:00 EST Appointment [facility] Hematology & Oncology - [address] [phone] 05/02/2024 15:00 EST Telemedicine [facility] Hematology & Oncology - [address] [phone] Alisson Carreon MD [address] [place] [address], [facility] 2 [place] [phone] 05/04/2024 10:15 EST Ancillary Procedure [facility] Cardiology - [address] [place] [address] 05/04/2024 11:30 EST Appointment [facility] Hematology & Oncology [address] 054951 05/04/2024 12:00 EST Appointment [facility] Hematology & Oncology [address] [id number] 06/12/2024 13:00 EST Appointment [facility] Radiology CT [address] 035201 documented as of this encounter Visit Diagnoses Diagnosis Retinal tear of left eye- Primary Bilateral retinal lattice degeneration Lattice degeneration of peripheral retina PVD (posterior vitreous detachment), both eyes Vitreous degeneration documented in this encounter Eye Exam Visual Acuity (Snellen - Linear) Right eye Left eye Dist sc 20/25 -2 20/70 Dist ph sc 20/30 Lasik both eyes, corrected mono-vision. Left eye is near corrected Tonometry (Applanation, 13:03) Right eye Left eye Pressure 9 8 Neuro/Psych Oriented x3: Yes Mood/Affect: Normal Dilation Both eyes: Tropicamide 1%, P henylephrine 2.5% @ 13:03 Slit Lamp Exam Right eye Left eye [...] laser scars; Inferior Lattice degeneration Care Teams Fast Food Attendant Relationship Specialty Start Date End Date Linda Blancas MD [facility] [address] [place] [address] PCP - General 01/06/11 Adolfo Carreno MD [address] [place] [address] 2 [place] [phone] General Surgery 04/26/19 Augustina Colin MD PhD [address] [place] [address] 2 [place] [phone] Medical Oncology 04/26/19 documented as of this encounter
--- OUTSIDE RECORDS SUMMARY | 2024-03-20 14:47 | XMS_ITS | Encounter Summary ---
Author Organization [facility] Address [address] [place] [address] Care Team Providers Care Wig Maker Name Role Phone Linda Blancas MD Primary Care Provider [phone] Adolfo Carreno MD Unavailable [phone] Augsutina Colin MD PhD Unavailable Unavailable Encounter Details Date Type Department Care Team (Late st Contact Info) Description 07/01/2022 Specialty Pharmacy [facility] [address] [place], [place] [address] Allen Day, [facility] [address] [place] [address] [phone] 04/02/2024 15:15 EDT Office Visit [facility] Surgical Oncology - [address] [phone] Adolfo Carreno MD [address] [place] [address] [phone] 04/05/2024 9:30 EDT Telemedicine [facility] - [facility] Palliative Care Services [address] [place] [address] 130801 Chichi Woods MD [address] [place] [address] [phone] 04/11/2024 15:00 EDT Telemedicine [facility] Hematology & Oncology [address] [phone] Alisson Carreon MD [address] [place] [address] [phone] 04/13/2024 13:30 EDT Appointment [facility] Hematology & Oncology [address] [phone] 04/13/2024 14:00 EDT Appointment [facility] Hematology & Oncology [address] [phone] 04/16/2024 10:00 EST Telemedicine [facility] - [facility] Palliative Care Services [address] [place] [address] [phone] Chichi Woods MD [address] [place] [address], [address] [place] [phone] 04/24/2024 9:00 EST Appointment [facility] Radiology CT Outpatient - [address] [id number] 04/24/2024 11:00 EST Appointment [facility] Breast Imaging - [facility] [address] [place] [address] [place], [place] [phone] 04/27/2024 12:00 EST Appointment [facility] Hematology & Oncology - [address] [phone] 05/02/2024 15:00 EST Telemedicine [facility] Hematology & Oncology - [address] [phone] Alisson Carreon MD [address] [place] [address], Level 2 [place] [phone] 05/04/2024 10:15 EST Ancillary Procedure [facility] Cardiology - [address] [place], [place] [phone] 05/04/2024 11:30 EST Appointment [facility] Hematology & Oncology - [address] [id number] 05/04/2024 12:00 EST Appointment [facility] Hematology & Oncology [address] [phone] 06/12/2024 13:00 EST Appointment [facility] Radiology CT - [address] [phone] documented as of this encounter Visit Diagnoses Not on filedocumented in this encounter Care Teams Wig Maker Relationship Specialty Start Date End Date Linda Blancas MD [facility] [address] [place] [address] PCP - General 01/06/11 Adolfo Carreno MD [address] [place] [address], [facility] [address] [place] [phone] General Surgery 04/26/19 Augustina Colin MD PhD [address] [place] [address], [address] [phone] Medical Oncology 04/26/19 documented as of this encounter
--- OUTSIDE RECORDS SUMMARY | 2024-03-20 14:47 | XMS_ITS | Encounter Summary ---
Author Organization [facility] Address [address] [place] [address] Care Team Providers Care Food Clerk Name Role Phone Linda Blancas MD Primary Care Provider [phone] Adolfo Carreno MD Unavailable [phone] Augustina Colin MD PhD Unavailable Unavailable Reason for Visit * Reason Onset Date Comments Erroneous Encounter 07/27/2022 Encounter Details Date Type Department Care Team (Late st Contact Info) Description 07/27/2022 Orders Only [facility] Cancer Center Hematology & Oncology - Main [place] [address], [place] [id number] Garima Boyce, RN Osteopenia of necks of both femurs [...] EDT Appointment [facility] Interventional Radiology Unit [address] [place] [address] [phone] 04/02/2024 15:15 EDT Office Visit [facility] Surgical Oncology [address] 081031 Adolfo Carreno MD [address] [place] [address] 2 [place] [phone] 04/05/2024 9:30 EDT Telemedicine [facility] - [facility] Palliative Care Services [address], [place] [phone] Chichi Woods MD [address] [place] [address], [address] [phone] 04/11/2024 15:00 EDT Telemedicine [facility] Hematology & Oncology [address] 987311 Alisson Carreon MD [address] [place] [address] 2 [place] [phone] 04/13/2024 13:30 EDT Appointment [facility] Hematology & Oncology [address] 143901 04/13/2024 14:00 EDT Appointment [facility] Hematology & Oncology - [address] 715431 04/16/2024 10:00 EST Telemedicine [facility] - [facility] Palliative Care Services [address] [place] [address] [phone] Chichi Woods MD 111 [facility], [address] [phone] 04/24/2024 9:00 EST Appointment [facility] Radiology CT Outpatient - [address] 328351 04/24/2024 11:00 EST Appointment [facility] Breast Imaging - [address] 072071 04/27/2024 12:00 EST Appointment [facility] Hematology & Oncology - [address] 997211 05/02/2024 15:00 EST Telemedicine [facility] Hematology & Oncology - [address] 371421 Alisson Carreon MD [address] [place] [address], Level [address] [place] [phone] 05/04/2024 10:15 EST Ancillary Procedure [facility] [place]iology [place] [address] [place] [address] 05/04/2024 11:30 EST Appointment [facility] Hematology & Oncology - [address] 077661 05/04/2024 12:00 EST Appointment [facility] Hematology & Oncology - [address] [phone] 06/12/2024 13:00 EST Appointment [facility] Center Radiology CT - [address] [address] documented as of this encounter Visit Diagnoses Diagnosis Osteopenia of necks of both femurs- Primary documented in this encounter Orders Nursing Count Last Ordered Date First Orde red Date INFORMED CONSENT 1 07/27/2022 documented in this encounter Care Teams Food Clerk Relationship Specialty Start Date End Date Linda Blancas MD [facility] [address] [place] [address] PCP - General 01/06/11 Adolfo Carreno MD [address] [place] [address] [phone] General Surgery 04/26/19 Augustina Colin MD PhD [address] [place] [phone] Medical Oncology 04/26/19 documented as of this encounter
--- OUTSIDE RECORDS SUMMARY | 2024-03-20 14:47 | XMS_ITS | Encounter Summary ---
Author Organization [facility] Address [address] [place] [address] Care Team Providers Care Trimming Department Blocker Name Role Phone Linda Blancas MD Primary Care Provider [phone] Adolfo Carreno MD Unavailable [phone] Augustina Colin MD PhD Unavailable Unavailable Reason for Referral * Medication Prior Authorization (Routine/Next Available) - Authorization Not Required Specialty Diagnoses / Procedures Referred By [facility] Referred To Contact Hematology and Oncology Diagnoses Metastatic breast cancer Vaginal atrophy Augustina Colin MD PhD [facility] Ep2 Hem/Onc [address] [place] [address] Referral ID Status Reason Start Date Expiration Date Visits Requested Visits Authorized [id number] Authorization Not Required Medication Prior Authorization 07/27/19 23 1 1 Question Answer Medication to be Prior Authorized: parasterone DHEA 6.5 mg vaginal insert Comments The purpose of this request is to inform precertification staff that the requested service needs to be reviewed for prior-authorization. Encounter Details Date Type Department Care Team (Late st Contact Info) Description 07/27/2022 Orders Only [facility] Cancer Center Hematology & Oncology - Main [place] [address] [place] [address] Garima Boyce, SHELLEY Metastatic breast cancer (HCC-CMS) (HCC) (HCC-CMS) (Primary Dx); Vaginal atrophy Social History Tobacco Use Types Packs/Day Years [...] as of this encounter Progress Notes * Garima Boyce, RN - 07/27/2022 0930 EST PA placed for Prasterone DHEA 6.5 mg vaginal inserts. documented in this encounter Plan of Treatment Upcoming Encounters Date Type Department Care Team (Late st Contact Info) Description 04/02/2024 10:30 EDT Appointment [facility] Interventional Radiology Unit [address] [place] [address] 757201 04/02/2024 15:15 EDT Office Visit [facility] Surgical Oncology - [facility] [address] [place], [place] 458011 Adolfo Carreno MD [address] [facility], [facility], Level [address] [place] [phone] 04/05/2024 9:30 EDT Telemedicine [facility] Palliative Care Services [address] [place] [address] 310461 Chichi Woods MD [address] [place] [address] [phone] 04/11/2024 15:00 EDT Telemedicine [facility] Hematology & Oncology - [address] 108171 Alisson Carreon MD [address] [place] [address], Level [address] [place] [phone] 04/13/2024 13:30 EDT Appointment [facility] Hematology & Oncology - [address] [address] 04/13/2024 14:00 EDT Appointment [facility] Hematology & Oncology [address] [id number] 04/16/2024 10:00 EST Telemedicine [facility] Palliative Care Services [address] [place] [address] 285181 Chichi Woods MD [address] [place] [address] [phone] 04/24/2024 9:00 EST Appointment [facility] Radiology CT Outpatient - [address] [id number] 04/24/2024 11:00 EST Appointment [facility] Breast Imaging - [address] [id number] 04/27/2024 12:00 EST Appointment [facility] Hematology & Oncology - [address] 697951 05/02/2024 15:00 EST Telemedicine [facility] Hematology & Oncology [address] 563901 Alisson Carreon MD [address] [place] [address] [phone] 05/04/2024 10:15 EST Ancillary Procedure [facility] Cardiology - [address] [place], [place] [phone] 05/04/2024 11:30 EST Appointment [facility] Hematology & Oncology [address] [phone] 05/04/2024 12:00 EST Appointment [facility] Hematology & Oncology [address] [id number] 06/12/2024 13:00 EST Appointment [facility] Radiology CT [address] [phone] Scheduled Referrals Name Type Priority Associated Diagnoses Order Schedule AMB MEDICATION PRIOR AUTHORIZATION REQUEST Outpatient Referral Routine/Next Available Primary malignant neoplasm of breast with metastasis (HCC-CMS) Vaginal atrophy Expected: 08/03/2022 (Approximate), Expires: 07/27/2023 documented as of this encounter Visit Diagnoses Diagnosis Metastatic breast cancer- Primary Vaginal atrophy Postmenopausal atrophic vaginitis documented in this encounter Care Teams Trimming Department Blocker Relationship Specialty Start Date End Date Linda Blancas MD [facility] [address] [place] [address] PCP - General 01/06/11 Adolfo Carreno MD [address] [place] [phone] General Surgery 04/26/19 Augustina Colin MD PhD [address] [place] [phone] Medical Oncology 04/26/19 documented as of this encounter
--- OUTSIDE RECORDS SUMMARY | 2024-03-20 14:47 | XMS_ITS | Encounter Summary ---
Author Organization [facility] Address [address] [place] [address] Care Team Providers Care Technician Submarine Cable Equipment Name Role Phone Linda Blancas MD Primary Care Provider [phone] Adolfo Carreno MD Unavailable [phone] Augustina Colin MD PhD Unavailable Unavailable Encounter Details Date Type Department Care Team (Late st Contact Info) Description 07/28/2022 Orders Only [facility] Cancer Center Hematology & Oncology - [facility] [address] [place] [address] Garima Boyce RN Metastatic breast cancer (HCC-CMS) (HCC) (HCC-CMS) (Primary [...] Info) Description 04/02/2024 10:30 EDT Appointment [facility] Interventional Radiology Unit [address] [place] [address] [id number] 04/02/2024 15:15 EDT Office Visit [facility] Surgical Oncology - [address] [phone] Adolfo Carreno MD [address] [place] [address] [phone] 04/05/2024 9:[address] [facility] - [facility] Palliative [facility] Services [address] [place] [address] [phone] Chichi Woods MD [address] [place] [address] [phone] 04/11/2024 15:00 EDT Telemedicine [facility] Hematology & Oncology [address] [phone] Alisson Carreon MD [address] [place] [address] [phone] 04/13/2024 13:30 EDT Appointment [facility] Hematology & Oncology [address] [address] 04/13/2024 14:00 EDT Appointment [facility] Hematology & Oncology - [address] 062561 04/16/2024 10:[address] [facility] - [facility] Palliative [facility] Services [address] [place] [address] [phone] Chichi Woods MD [address] [place] [address], [address] [phone] 04/24/2024 9:00 EST Appointment [facility] [place] [facility] Radiology CT Outpatient - [address] 011901 04/24/2024 11:00 EST Appointment [facility] Breast Imaging - [address] [phone] 04/27/2024 12:00 EST Appointment [facility] Hematology & Oncology - [address] [phone] 05/02/2024 15:00 EST Telemedicine [facility] Hematology & Oncology - [address] 461231 Alisson Carreon MD [address] [place] [address], Level 2 [place] [phone] 05/04/2024 10:15 EST Ancillary Procedure [facility] Cardiology [place] [place] [address] 05/04/2024 11:30 EST Appointment [facility] Hematology & Oncology - [address] [phone] 05/04/2024 12:00 EST Appointment [facility] Hematology & Oncology - [address] 187551 06/12/2024 13:00 EST Appointment [facility] Center Radiology CT - [address] 098281 documented as of this encounter Visit Diagnoses Diagnosis Metastatic breast cancer- Primary documented in this encounter Care Teams Technician Submarine Cable Equipment Relationship Specialty Start Date End Date Linda Blancas MD [facility] [address] [place] [address] PCP - General 01/06/11 Adolfo Carreno MD [address] [place] [address] 2 [place] [phone] General Surgery 04/26/19 Augustina Colin MD PhD [address] [place] [address] 2 [place] [phone] Medical Oncology 04/26/19 documented as of this encounter
--- OUTSIDE RECORDS SUMMARY | 2024-03-20 14:47 | XMS_ITS | Encounter Summary ---
Author Organization [facility] Address [address] [place] [address] Care Team Providers Care Coat Repair Inspector Name Role Phone Linda Blancas MD Primary Care Provider [phone] Adolfo Carreno MD Unavailable [phone] Augustina Colin MD PhD Unavailable Unavailable Reason for Referral * Prior Authorization (Routine/Next Available) - New Request Specialty Diagnoses / Procedures [facility] Referred To Contact Infusion Therapy Diagnoses Metastatic breast cancer Augustina Colin MD PhD [facility] [address] [place] [address] Referral ID Status Reason Start Date Expiration Date Visits Requested Visits Authorized [id number] New Request Specialty Services Required 2 1 1 Question Answer Is this appt for transfusion, medication, test or injection? Infusion How many infusions need to be ordered for appt? 1 Infusion Name Other Please specify: zoledronic acid q 6 months Infusion Dose 4mg/100ml What is the infusion frequency? q 6 months Is this the first dose of infusion(s)? No Have orders been place for this appt? (i.e.: Blood Transfusion Order Set, Therapy Plan, Lab Orders, Supportive Plan, Etc) Yes Encounter Details Date Type Department Care Team (Late st Contact Info) Description 06/10/2022 Orders Only [facility] Hematology & Oncology - Main [place] [address] [place] [address] Garima Boyce RN Metastatic breast cancer (HCC-CMS) [...] EDT Appointment [facility] Interventional Radiology Unit [address] [place] [address] 04/02/2024 15:15 EDT Office Visit [facility] Surgical Oncology - [address] [phone] Adolfo Carreno MD 111 [facility], Level [address] [place] [phone] 04/05/2024 9:30 EDT Telemedicine [facility] Palliative Care Services [address] [place] [address] [phone] Chichi Woods MD [address] [place] [address] [phone] 04/11/2024 15:00 EDT Telemedicine [facility] Hematology & Oncology [address] [address] Alisson Carreon MD [address] [place] [address], Level [address] [place] [phone] 04/13/2024 13:30 EDT Appointment [facility] Hematology & Oncology [address] 126651 04/13/2024 14:00 EDT Appointment [facility] Hematology & Oncology [address] [address] 04/16/2024 10:00 EST Telemedicine [facility] - [facility] Palliative Care Services [address] [place] [address] 145321 Chichi Woods MD [address] [place] [address] [phone] 04/24/2024 9:00 EST Appointment [facility] Radiology CT Outpatient - [address] 536781 04/24/2024 11:00 EST Appointment [facility] Breast Imaging - [address] [id number] 04/27/2024 12:00 EST Appointment [facility] Hematology & Oncology - [address] 723591 05/02/2024 15:00 EST Telemedicine [facility] Hematology & Oncology - [address] 810391 Alisson Carreon MD [address] [place] [address] [phone] 05/04/2024 10:15 EST Ancillary Procedure [facility] Cardiology - [address] [place] [address] 05/04/2024 11:30 EST Appointment [facility] Hematology & Oncology [address] [phone] 05/04/2024 12:00 EST Appointment [facility] Hematology & Oncology [address] 077251 06/12/2024 13:00 EST Appointment [facility] Radiology CT - [address] [address] Scheduled Referrals Name Type Priority Associated Diagnoses Order Schedule AMB CONS/FOLLOW UP [facility] Outpatient Referral Routine/Next Available Primary malignant neoplasm of breast with metastasis (HCC-CMS) Expected: 12/09/2022 (Approximate), Expires: 06/10/2023 documented as of this encounter Visit Diagnoses Diagnosis Metastatic breast cancer- Primary documented in this encounter Care Teams Coat Repair Inspector Relationship Specialty Start Date End Date Linda Blancas MD [address] [place] [address] 30 [place] [address] PCP - General 01/06/11 Adolfo Carreno MD [address] [place] [address] [phone] General Surgery 04/26/19 Augustina Colin MD PhD [address] [place] [phone] Medical Oncology 04/26/19 documented as of this encounter
--- OUTSIDE RECORDS SUMMARY | 2024-03-20 14:47 | XMS_ITS | Encounter Summary ---
Author Organization [facility] Address [address] [place] [address] Care Team Providers Care Software Manager Name Role Phone Linda Blancas MD Primary Care Provider [phone] Adolfo Carreno MD Unavailable [phone] Augustina Colin MD PhD Unavailable Unavailable Reason for Referral * Consult (Routine/Next Available) - Authorization Not Required Specialty Diagnoses / Procedures Referred By [facility] Referred To Contact Hematology and Oncology Diagnoses Metastatic breast cancer Augustina Colin MD PhD [facility] Ep2 Hem/Onc [address] [place] [address] Referral ID Status Reason Start Date Expiration Date Visits Requested Visits Authorized [id number] Authorization Not Required Specialty Services Required 3 1 1 Question Answer 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 ??Her is wanting to retire. ?? Encounter Details Date Type Department Care Team (Late st Contact Info) Description 07/29/2022 Orders Only [facility] Cancer Center Hematology & Oncology - Main [place] [address] [place], [place] [phone] Garima Boyce RN Metastatic breast cancer (HCC-CMS) [...] Progress Notes * Garima Boyce, RN - 07/29/2022 1311 EST Have Trinh Posey reach out about the need to switch to medicare. ??Her is wanting to retire. ?? documented in this encounter Plan of Treatment Upcoming Encounters Date Type Department Care Team (Late st Contact Info) Description 04/02/2024 10:30 EDT Appointment [facility] Interventional Radiology Unit [address] [place], [place] 072051 04/02/2024 15:15 EDT Office Visit [facility] Surgical Oncology - [facility] [address] [place], [place] 570401 Adolfo Carreno MD 111 [facility], Level 2 [place] [phone] 04/05/2024 9:30 EDT Telemedicine [facility] Palliative Care Services [address] [place] [address] [phone] Chichi Woods MD [address] [place] [address] [phone] 04/11/2024 15:00 EDT Telemedicine [facility] Hematology & Oncology - [address] 948601 Alisson Carreon MD [address] [place] [address], Level [address] [place] [phone] 04/13/2024 13:30 EDT Appointment [facility] Hematology & Oncology - [address] [phone] 04/13/2024 14:00 EDT Appointment [facility] Hematology & Oncology [address] 435181 04/16/2024 10:00 EST Telemedicine [facility] Palliative Care Services [address] [place] [address] [phone] Chichi Woods MD [address] [place] [address] [phone] 04/24/2024 9:00 EST Appointment [facility] Radiology CT Outpatient - [address] [id number] 04/24/2024 11:00 EST Appointment [facility] Breast Imaging - [address] 742181 04/27/2024 12:00 EST Appointment [facility] Hematology & Oncology - [address] [phone] 05/02/2024 15:00 EST Telemedicine [facility] Hematology & Oncology [address] 929321 Alisson Carreon MD [address] [place] [address] [phone] 05/04/2024 10:15 EST Ancillary Procedure [facility] Cardiology - [address] [place], [place] [phone] 05/04/2024 11:30 EST Appointment [facility] Hematology & Oncology [address] [phone] 05/04/2024 12:00 EST Appointment [facility] Hematology & Oncology [address] [phone] 06/12/2024 13:00 EST Appointment [facility] Radiology CT - [address] [phone] Scheduled Referrals Name Type Priority Associated Diagnoses Order Schedule AMB SOCIAL WORK SERVICES Outpatient Referral Routine/Next Available Primary malignant neoplasm of breast with metastasis (HCC-CMS) Expected: 08/05/2022 (Approximate), Expires: 07/29/2023 documented as of this encounter Visit Diagnoses Diagnosis Metastatic breast cancer- Primary documented in this encounter Care Teams Software Manager Relationship Specialty Start Date End Date Linda Blancas MD [facility] [address] [place] [address] PCP - General 01/06/11 Adolfo Carreno MD [address] [place] [address] [phone] General Surgery 04/26/19 Augustina Colin MD PhD [address] [place] [phone] Medical Oncology 04/26/19 documented as of this encounter
--- OUTSIDE RECORDS SUMMARY | 2024-03-20 14:47 | XMS_ITS | Encounter Summary ---
Author Organization [facility] Address [address] [place] [address] Care Team Providers Care Dray Truck Driver Name Role Phone Linda Blancas MD Primary Care Provider [phone] Adolfo Carreno MD Unavailable [phone] Augustina Colin MD PhD Unavailable Unavailable Encounter Details Date Type Department Care Team (Late st Contact Info) Description 07/30/2022 Orders Only [facility] Hematology & Oncology - [facility] [address] [place] [address] Maria Guadalupe Hill, [place] Social History Tobacco Use Types Packs/Day [...] Appointment [facility] Interventional Radiology Unit [address] [place] [address] [phone] 04/02/2024 15:15 EDT Office Visit [facility] Surgical Oncology - [address] [phone] Adolfo Carreno MD [address] [place] [address] [phone] 04/05/2024 9:30 EDT Telemedicine [facility] - [facility] Palliative Care Services [address] [place] [address] [phone] Chichi Woods MD [address] [place] [address] [phone] 04/11/2024 15:00 EDT Telemedicine [facility] Hematology & Oncology [address] [phone] Alisson Carreon MD [address] [place] [address] [phone] 04/13/2024 13:30 EDT Appointment [facility] Hematology & Oncology [address] [phone] 04/13/2024 14:00 EDT Appointment [facility] Hematology & Oncology [address] [phone] 04/16/2024 10:00 EST Telemedicine [facility] - [facility] Palliative Care Services [address] [place] [address] [phone] Chichi Woods MD [address] [place] [address], [address] [place] [phone] 04/24/2024 9:00 EST Appointment [facility] Radiology CT Outpatient - [address] [id number] 04/24/2024 11:00 EST Appointment [facility] Breast Imaging - [facility] [place] [address] [place], [place] [address]1991 04/27/2024 12:00 EST Appointment [facility] Hematology & Oncology - [address] [phone] 05/02/2024 15:00 EST Telemedicine [facility] Hematology & Oncology - [address] 125241 Alisson Carreon MD [address] [place] [address], Level [address] [place] [phone] 05/04/2024 10:15 EST Ancillary Procedure [facility] Cardiology - [address] [place], [place] [phone] 05/04/2024 11:30 EST Appointment [facility] Hematology & Oncology - [address] [phone] 05/04/2024 12:00 EST Appointment [facility] Hematology & Oncology [address] [phone] 06/12/2024 13:00 EST Appointment [facility] Radiology CT - [address] [phone] documented as of this encounter Visit Diagnoses Not on filedocumented in this encounter Care Teams Dray Truck Driver Relationship Specialty Start Date End Date Linda Blancas MD [facility] [address] [place] [address] PCP - General 01/06/11 Adolfo Carreno MD [address] [place] [address], [facility] [address] [place] [phone] General Surgery 04/26/19 Augustina Colin MD PhD [address] [place] [address], [address] [phone] Medical Oncology 04/26/19 documented as of this encounter
--- OUTSIDE RECORDS SUMMARY | 2024-03-20 14:47 | XMS_ITS | Encounter Summary ---
Author Organization [facility] Address [address] [place] [address] Care Team Providers Care Cryptologic Technician Name Role Phone Linda Blancas MD Primary Care Provider [phone] Adolfo Carreno MD Unavailable [phone] Augustina Colin MD PhD Unavailable Unavailable Reason for Visit * Reason Comments Eye Problem * Consult, Test and Treat (Urgent) - Receiving Office to Obtain Authorization Specialty Diagnoses / Procedures Referred By Contdayanna t Referred To Contact Diagnoses Floaters Nikky Kat [address] [facility] [address] [place] [address] [place] [address] [address] [place] [address] Referral ID Status Reason Start Date Expiration Date Visits Requested Visits Authorized [id number] Receiving Office to Obtain Authorization 1 1 Encounter Details Date Type Department Care Team (Late st Contact Info) Description 07/13/2022 15:15 EST Office Visit [facility] Ophthalmology - Main [address] [address] Tylor Bonilla MD [facility] [address] [place] [phone] Social History Tobacco Use Types Packs/Day Years [...] Progress Notes * Tylor Bonilla MD - 07/13/2022 1515 EST Chief Complaint Patient presents with ??? Eye Problem Comments ERV - ref'd from Dr. Kat for retinal tear left eye. Patient notes started on with floaters then over the weekend some blurry vision. No eye pain. HPI Location: Left eye Pain: 0 - No pain Quality: Blurry Severity: Mild Duration: Days Timing: Constant Lasts: Continuous Context: ERV - retinal tear left eye Modifying factors: history of lasik both eyes 15 years ago and a lasik revision 10 years ago on onee but doesn't remember which eye Associated Signs & Symptoms: Visual Fluctuations: Floaters Attestation: Base Eye Exam Visual Acuity (Snellen - Linear) Right Left Dist sc 20/25 20/100 Dist ph sc 20/40 Tonometry (Applanation, 15:40) Right Left Pressure 07 06 Pupils React Right dilated Left dilated Visual Ariza (Counting fingers) Right Left Full Full Extraocular Movement Right Left Full, Ortho Full, Ortho Neuro/Psych Oriented x3: Yes Mood/Affect: Normal Dilation Both eyes: Tropicamide 1%, Phenylephrine 2.5% @ 15:40 Slit Lamp and Fundus Exam Slit Lamp Exam Right Left Lids/Lashes Normal Normal Conjunctiva/Sclera White and quiet White and quiet Cornea Clear Clear Anterior Chamber Deep and quiet Deep and quiet Iris Dilated Dilated Lens Clear Clear Anterior Vitreous Posterior vitreous detachment Posterior vitreous detachment, Hemorrhage Fundus Exam Right Left Disc Healthy Rim Healthy Rim C/D Ratio 0.3 0.3 Macula Healthy Healthy Vessels Healthy Healthy Periphery Retina attached., Inferior-temporal Lattice degeneration Retina attached. Retinal tear at11 o'clock and 1:30., Inferior Lattice degeneration Please refer to large retinal drawing. Prophylaxis of Retinal Detachment, Laser - OS - Left Eye Oph Retinal Laser Note Sunshine Pleitez is here and consented to the following: Procedure Laser Retinopexy Indication: Retinal Tears Side: Left Eye Surgeon: Tylor Bonilla MD PROCEDURE: Anesthesia Type: Topical Proparacine HCl 0.4% Ophthalmic solution The patient was taken to the laser room where a total of 788 spots of 0.1 sec duration and 532 nm green wavelength were placed around retinal tears at 11:00 and 1:30 o'clock. Lens used: 20D lens. Power: 300 mW Spot size: MAYUR 500 um I certify that a Final Verification has been performed by the surgical team immediately prior to this procedure to verbally confirm patient identity, procedure and when applicable, site. Name of Electronic Repair Troubleshooter: MONAE Post op diagnosis/findings: Retinal tears left eye surrounded with laser Disposition/ Complications: The patient tolerated the procedure well and left the office in good condition. Followup/ Instructions: 1 months/PRN DIAGNOSES: 1. Retinal tear of left eye PROPHYLAXIS OF RETINAL DETACHMENT, LASER - OS - LEFT EYE CANCELED: REPAIR RETINAL DETACH, PHOTOCOAG - OD - RIGHT EYE CANCELED: REPAIR RETINAL DETACH, PHOTOCOAG - OS - LEFT EYE 2. Bilateral retinal lattice degeneration 3. PVD (posterior vitreous detachment), both eyes Assessment Retinal tear(s) left eye Two retinal tear (11 and 1:30) without detachment Recommend laser retinopexy to reduce risk of retinal detachment and vision loss Risks and benefits discussed Patient agrees Laser applied around both tears. Posterior vitreous detachment both eyes Longstanding right eye. Acute left eye, with vitreal heme. Retina attached both eyes Lattice degeneration both eyes No tears or traction right eye Monitor Return 1 months/PRN I have reviewed the past medical, family, [...] Appointment [facility] Interventional Radiology Unit [address] [place] [address] [phone] 04/02/2024 15:15 EDT Office Visit [facility] Surgical Oncology - [address] [phone] Adolfo Carreno MD [address] [place] [address] [address] [place] [phone] 04/05/2024 9:30 EDT Telemedicine [facility] - [facility] Palliative Care Services [address] [place] [address] [phone] Chichi Woods MD [address] [place] [address] [phone] 04/11/2024 15:00 EDT Telemedicine [facility] Hematology & Oncology - [address] [phone] Alisson Carreon MD [address] [place] [address], [facility] [address] [place] [phone] 04/13/2024 13:30 EDT Appointment [facility] Hematology & Oncology - [address] [phone] 04/13/2024 14:00 EDT Appointment [facility] Hematology & Oncology [address] [phone] 04/16/2024 10:00 EST Telemedicine [facility] - [facility] Palliative Care Services [address] [place] [address] [phone] Chichi Woods MD [address] [place] [address], [address] [phone] 04/24/2024 9:00 EST Appointment [facility] Radiology CT Outpatient - [address] [id number] 04/24/2024 11:00 EST Appointment [facility] Breast Imaging - [facility] [address] [place] [address] [place], [place] 934131 04/27/2024 12:00 EST Appointment [facility] Hematology & Oncology [address] [phone] 05/02/2024 15:00 EST Telemedicine [facility] Hematology & Oncology [address] [phone] Alisson Carreon MD [address] [place] [address], [address] [place] [phone] 05/04/2024 10:15 EST Ancillary Procedure [facility] Cardiology - [address] [address] 05/04/2024 11:30 EST Appointment [facility] Hematology & Oncology [address] [phone] 05/04/2024 12:00 EST Appointment [facility] Hematology & Oncology [address] [phone] 06/12/2024 13:00 EST Appointment [facility] Radiology CT - Main [place] [address] [place] [address] documented as of this encounter Procedures Procedure Name Priority Date/Time Associated Diagnosis Comments PROPHYLAXIS OF RETINAL DETACHMENT, LASER - OS - LEFT EYE Routine 07/13/2022 18:54 EST Retinal tear of left eye documented in this encounter Results * PROPHYLAXIS OF RETINAL DETACHMENT, LASER - OS - LEFT EYE (07/13/2022 18:54 EST) Narrative [facility] POINT OF CARE - 07/13/2022 18:54 EST Table formatting from the original result was not included. Oph Retinal Laser Note Sunshine Pleitez is here and consented to the following: Procedure Laser Retinopexy Indication: Retinal Tears Side: Left Eye Surgeon: Tylor Bonilla MD PROCEDURE: Anesthesia Type: Topical Proparacine HCl 0.4% Ophthalmic solution The patient was taken to the laser room where a total of 788 spots of 0.1 sec duration and 532 nm green wavelength were placed around retinal tears at 11:00 and 1:30 o'clock. Lens used: 20D lens. Power: 300 mW Spot size: MAYUR 500 um I certify that a Final Verification has been performed by the surgical team immediately prior to this procedure to verbally confirm patient identity, procedure and when applicable, site. Name of Electronic Repair Troubleshooter: MONAE Post op diagnosis/findings: Retinal tears left eye surrounded with laser Disposition/ Complications: The patient tolerated the procedure well and left the office in good condition. Followup/ Instructions: 1 months/PRN Tylor Bonilla MD OPHTH CLINIC PROCEDU RES [facility] POINT OF CARE documented in this encounter Visit Diagnoses Diagnosis Retinal tear of left eye- Primary Bilateral retinal lattice degeneration Lattice degeneration of peripheral retina PVD (posterior vitreous detachment), both eyes Vitreous degeneration documented in this encounter Eye Exam Visual Acuity (Snellen - Linear) Right eye Left eye Dist sc 20/25 20/100 Dist ph sc 20/40 Tonometry (Applanation, 15:40) Right eye Left eye Pressure 07 06 Pupils React Right eye dilated Left eye dilated Visual Ariza (Counting fingers) Right eye Left eye Full Full Extraocular Movement Right eye Left eye Full, Ortho Full, Ortho Neuro/Psych Oriented x3: Yes Mood/Affect: Normal Dilation Both eyes: Tropicamide 1%, P henylephrine 2.5% @ 15:40 Slit Lamp Exam Right eye Left eye Lids/Lashes Normal Normal Conjunctiva/Sclera White and quiet White and marisabel et Cornea Clear Clear Anterior Chamber Deep and quiet Deep and quiet Iris Dilated Dilated Lens Clear Clear Anterior Vitreous Posterior vitreous detachment Posterior vitreous detachment, Hemorrhage Fundus Exam Right eye Left eye Disc Healthy Rim Healthy Rim C/D Ratio 0.3 0.3 Macula Healthy Healthy Vessels Healthy Healthy Periphery Retina attached., In ferior-temporal Lattice degeneration Retina attached. Retinal tear at 11 o'clock and 1:30., Inferior Lattice degeneration Care Teams Cryptologic Technician Relationship Specialty Start Date End Date Linda Blancas MD [address] [place] [address] [address] [place] [address] PCP - General 01/06/11 Adolfo Carreno MD [address] [place] [address] [phone] General Surgery 04/26/19 Augustina Colin MD PhD [address] [phone] Medical Oncology 04/26/19 documented as of this encounter
--- OUTSIDE RECORDS SUMMARY | 2024-03-20 14:47 | XMS_ITS | Encounter Summary ---
Author Organization [facility] Address [address] [place] [address] Care Team Providers Care Wire Turning Machine Operator Name Role Phone Linda Blancas MD Primary Care Provider [phone] Adolfo Carreno MD Unavailable [phone] Augustina Colin MD PhD Unavailable Unavailable Reason for Visit * Reason Comments Follow-up Patient here for rhea omalley follow up hx breast cancer, premature ovarian failure. Encounter Details Date Type Department Care Team (Late st Contact Info) Description 05/27/2022 10:00 EST Office Visit [facility] OBGYN Services - [address] [phone] Quita Babb PA-C [address] [facility], [facility] 2 [place] [address] Encounter for gynecological examination without abnormal finding (Primary Dx) Social History Tobacco Use Types [...] Sign Reading Time Taken Comments Blood Pressure 116/70 05/27/2022 1007 EST Pulse - - Temperature - - Respiratory Rate - - Oxygen Saturation - - Inhaled Oxygen Concentration - - Weight 59 kg (130 lb) 05/27/2022 1007 EST Height - - Body Mass Index 25.35 05/14/2022 0733 EST documented in this encounter Functional Status [...] of this encounter Progress Notes * Quita Babb PA-C - 05/27/2022 1000 EST Subjective: Patient ID: Sunshine Pleitez is an 61 y.o. female. Chief Complaint Patient presents with ??? Follow-up Patient here for yearly follow up hx breast cancer, premature ovarian failure. Gynecologic Exam Chief complaint: Annual gynecologic exam HPI: Sunshine Pleitez is a 61 y.o. woman who presents today for a yearly exam, last seen in 03/2019 for an annual housing relocation exam. Sendy continues to undergo treatment for recurrent metastatic ductal breast carcinoma, diagnosed with this recurrence in October of 2016. 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 She had been in close surveillance with the breast cancer center, and as she was over 10 years out from her diagnosis was on yearly surveillance. ??In Oct, 2016 she noticed some changes in her right breast, which ultimately led to imaging and a biopsy that was consistent invasive ductal carcinoma, with disease on her right chest wall, as well as enlarged mediastinal lymph nodes and small lung nodules. She is currently receiving treatment with Dr. Colin, and is currently on capecitabine. ??She underwent IR embolization of liver metastases on 05/13. 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 Initially she was on HRT, but discontinued this after her breast cancer diagnosis. She had been on topical clonidine lotion, as well as black cohosh and kava kava (followed by Katie Marino in the past) as well asEffexor, but discontinued everything except for the Effexor (75mg daily) about 5 years ago, and hadbeen doing fine, but then she began having hot flashes and night sweats again, 2-3 times daily. At that point, we increased her Effexor to 150 mg daily with little relief. 2 years agowe had also started gabapentin, 300 mg qhs, which helped somewhat, but she continued having hot flashes during the day. She currently takes 300 mg neurontin at bedtime, and 100 mg in the morning and at noon time. Shehas no concerns today related to her hot flashes or menopausal symptoms, she is overall doing well,and has no complaints regarding this today. These medications are refilled by her pcp. She also began having abnormal pap smears in 2005, as follows: ?? 06/2005: ASCUS, positive HR HPV. Colposcopy 07/2005: benign ECC, vaginal biopsy c/w VAIN 2 02/2006: pap ASCUS, vaginal biopsy VAINII/III 10/2006: Pap LSIL, vaginal biopsy VAIN 1 07/2007: pap ASCUS, ECC and vaginal biopsies benign 01/2008: pap LSIL 07/2008: NIL 02/2009: LSIL 09/2009: ASCUS, later that month cervical and vaginal biopsies negative Now NIL paps x 4 (06/2010, 11/2010, 11/2011 and 11/2012, at that time NIL and negative HPV) as well as 12/2014, and in 2019. NIL and negative HPV. Post menopausal, no vaginal bleeding Using NA for contraception. Last pap smear: 03/2019 (NIL, neg HR HPV, done at [facility], result in scanned documents). History of STDs: HSV, on valtrex suppression, and denies any recent outbreaks. Currently at risk orconcerns of STD: no, stable relationship Vaginal complaints: Does have insertional dyspareunia, and relates this to skin and mucosal breakdown secondary to her xeloda. Has ordered lubricants,moisturizers and dilators of the internet, and plans to initiate these soon. Bladder complaints: none Bowel complaints: none Other complaints: none Other concerns: none Hot flashes better than in the past. Health Maintenance Mammogram:She is followed regularly in medical and surgical oncology for her metastatic breast cancer. Colonoscopy: states that she is due, but has an order to have this done at [place], they are backlogged. Cholesterol screening: utd through her pcp DEXMyles: followed by medical oncology Immunizations: Tetanus: utd Gardasil NA Social history: reports that she has never smoked. She has never used smokeless tobacco. The patient states she drinks rarely per week. Employment history/work hazards: Remains on disability. Her is retiring this spring. They recently acquired a [employer] puppy. Exercise: She remains active Calcium:diet and supplement Vitamin D: diet and supplement Folic Acid: diet Bicycle helmet use:yes Wears seatbelts: yes Patient Active Problem List Diagnosis ??? Papanicolaou [...] breast reconstruction, right ??? Lipoma of back Past Medical History: Diagnosis Date ??? Acquired spondylolisthesis ??? Activity, other involving cardiorespiratory exercise snow shoeing ??? Allergy ??? Arthritis right big toe ??? Back pain spinal fussion no issues currently 3/15/21 ??? Breast cancer (HCC-CMS) (HCC) November 2003 [...] [place] no complications ??? BREAST SURGERY 08/2018 healthcare business analyst placed right breast - [place] no complications ??? CARPAL TUNNEL RELEASE 200705/07/2019 beir block - no complications ??? FOOT SURGERY 05/2021 right big toe fused, right little toe screw ??? LIPOMA RESECTION 2001 05/07/2019 [place] no complications ??? MASTECTOMY Right ??? TN INSJ/RPLCMT BREAST IMPLANT Feb MASTECTOMY Bilateral 05/30/2019 Exchange right tissue healthcare business analyst to silicone implant, exchange of left implant for matching performedby Tylor Boss MD at [facility] OR Family History Problem Relation [...] wine per week ??? Drug use: No Current Outpatient Medications on File Prior to Visit Medication Sig Dispense Refill ??? calcium-vitamin D (OS-CHAR D) 500 mg(1,250mg) -200 unit per tablet Take 1 Tab by mouth 2 times daily with breakfast and dinner. ??? capecitabine (XELODA) 500 mg tablet Take 2 Tablets by mouth every 12 hours. 60 Tablet 3 ??? gabapentin (NEURONTIN) 100 mg capsule Take 2 Caps by mouth 2 times daily. (Patient taking differently: Take 600 mg by mouth 2 times daily. Takes 300 mg qam and pm and 600 mg qhs) 360 Cap 3 ??? ibuprofen (MOTRIN) 200 mg tablet Take 400 mg by mouth as needed. (Patient not taking: Reported on 05/14/2022) ??? MULTIVITS W-CA,FE,OTHER MIN (WOMEN'S DAILY FORMULA ORAL) Take by mouth daily. ??? mv-mn/C/glutamin/lysin/alxc646 (AIRBORNE, ASCORBATE SODIUM, ORAL) Take by mouth as needed. ??? omeprazole (PRILOSEC) 20 mg capsule Take 20 mg by mouth daily. ??? ondansetron (ZOFRAN-ODT) 8 mg disintegrating tablet Take 1 Tablet by mouth every 8 hours as needed for Nausea. 30 Tablet 0 ??? ondansetron (ZOFRAN-ODT) 8 mg disintegrating tablet Take 1 Tablet by mouth every 8 hours as needed for Nausea. (Patient not taking: No sig reported) 15 Tablet 0 ??? oxyCODONE (ROXICODONE) 5 mg immediate release tablet Take 1 Tablet by mouth every 4 hours as needed for Pain. Daily Max: 30 mg 9 Tablet 0 ??? oxyCODONE (ROXICODONE) 5 mg immediate release tablet Take 1 Tablet by mouth every 4 hours as needed for Pain. Daily Max: 30 mg (Patient not taking: No sig reported) 9 Tablet 0 ??? palbociclib 100 mg capsule Take 100 mg by mouth daily. Take 100 mg daily days 1-21 and then 7 days off. Total cycle length 28 days before restarting. (Patient not taking: No sig reported) 21 capsule 5 ??? RED YEAST RICE EXTRACT ORAL Take 1,200 mg by mouth daily. 600mg 2x a day ??? valACYclovir (VALTREX) 500 mg tablet Take 1 Tab by mouth daily. 90 Tab 3 ??? venlafaxine (EFFEXOR-XR) 150 mg XR capsule Take 1 Cap by mouth daily. 90 Cap 3 No current facility-administered medications on file prior to visit. Allergies Allergen Reactions ??? Amoxicillin Other (See Comments) and Rash Red rash ??? Sulfa (Sulfonamide Antibiotics) Hives Light lavender rash Review of Systems Constitutional: Negative. HENT: Negative. Eyes: Negative. Respiratory: Negative. Cardiovascular: Negative. Gastrointestinal: Negative. Endocrine: Negative. Genitourinary: Negative. Musculoskeletal: Negative. Skin: Negative. Allergic/Immunologic: Negative. Neurological: Negative. Hematological: Negative. Psychiatric/Behavioral: Negative. - See HPI Objective: BP 116/70 Wt 59 kg (130 lb) BMI 25.35 kg/m?? Physical Exam Constitutional: She is oriented to person, place, and time. She appears well- developed and well-nourished. No distress. HENT: Head: Normocephalic and atraumatic. Eyes: Pupils are equal, round, and reactive to light. Neck: No thyromegaly present. Cardiovascular: Normal rate, regular rhythm and normal heart sounds. Exam reveals no gallop and no friction rub. No murmur heard. Pulmonary/Chest: Effort normal and breath sounds normal. No respiratory distress. She has no wheezes. She has no rales. Abdominal: Soft. Bowel sounds are normal. She exhibits no distension. There is no abdominal tenderness. There is no rebound. Genitourinary: Vagina normal and uterus normal. No vaginal discharge. Musculoskeletal: General: Normal range of motion. Cervical back: Normal range of motion. Lymphadenopathy: She has no cervical adenopathy. She has no axillary adenopathy. Neurological: She is alert and oriented to person, place, and time. Skin: Skin is warm and dry. No erythema. No pallor. Psychiatric: She has a normal mood and affect. Her behavior is normal. Judgment and thought contentnormal. Assessment: Annual housing relocation exam, with atrophic vaginitis, and in follow up for LSIL/VAIN II. Currently in treatment for metastatic breast cancer. Plan: There are no diagnoses linked to this encounter. 1) Pap with HPV regardless. If NIL/negat HR HPV repeat in 3 or 5 years, per guidelines at that time. 2) agree with trial of vaginal lubricants, moisturizers and dilators. 3) Ongoing follow up with medical oncology for treatment of metastatic breast cancer. 4) Calcium, vitamin D for bone density protection. DEXA followed by medical oncology. Return to office in 1 year, sooner PRN. Notes that she may opt to have future housing relocation exam/care with her pcp, but also may return to us if desired. TANK Felipe documented in this encounter Plan of Treatment Upcoming Encounters Date Type Department Care Team (Late st Contact Info) Description 04/02/2024 10:30 EDT Appointment [facility] Interventional Radiology Unit [address] [place] [address] [phone] 04/02/2024 15:15 EDT Office Visit [facility] Surgical Oncology - [address] [phone] Adolfo Carreno MD [address] [place] [address] [phone] 04/05/2024 9:30 EDT Telemedicine [facility] - [facility] Palliative Care Services [address] [place] [address] [phone] Chichi Woods MD [address] [place] [address] [phone] 04/11/2024 15:00 EDT Telemedicine [facility] [place] [facility] Hematology & Oncology [address] [phone] Alisson Carreon MD [address] [place] [address] [phone] 04/13/2024 13:30 EDT Appointment [facility] [place] [facility] Hematology & Oncology [address] [phone] 04/13/2024 14:00 EDT Appointment [facility] [place] Hematology & Oncology [address] [phone] 04/16/2024 10:00 EST Telemedicine [facility] - [facility] Palliative Care Services [address] [place] [address] [phone] Chichi Woods MD [address] [place] [address], [address] [phone] 04/24/2024 9:00 EST Appointment [facility] Radiology CT Outpatient - [address] [phone] 04/24/2024 11:00 EST Appointment [facility] Breast Imaging - [facility] [address] [place], [place] 171491 04/27/2024 12:00 EST Appointment [facility] Hematology & Oncology - [address] [phone] 05/02/2024 15:00 EST Telemedicine [facility] Hematology & Oncology - [address] [phone] Alisson Carreon MD [address] [place] [address], Level [address] [place] [phone] 05/04/2024 10:15 EST Ancillary Procedure [facility] Cardiology - [place] [address] 05/04/2024 11:30 EST Appointment [facility] Hematology & Oncology - [address] [phone] 05/04/2024 12:00 EST Appointment [facility] Hematology & Oncology [address] [phone] 06/12/2024 13:00 EST Appointment [facility] Radiology CT - [address] [phone] documented as of this encounter Procedures Procedure Name Priority Date/Time Associated Diagnosis Comments PAP TEST Routine 05/27/2022 13:36 EST Encounter for gynecological examination without abnormal finding HPV DNA DETECTION WITH GENOTYPING, PCR Today 05/27/2022 13:36 EST Encounter for gynecological examination without abnormal finding documented in this encounter Results * HUMAN PAPILLOMAVIRUS (HPV) DETECTION-HIGH RISK TYPES (05/27/2022 13:36 EST) HPV other High Risk types, PCR Negative Negative 06/03/2022 15:34 [facility] Comment:No E6 or E7 mRNA is detected from HPV types 16,18,31,33,35,39,45,51,52,56,58,59,66, and 68 by tourist home keeper mediated amplification. Papanicolaou smear specimen (specimen) CERVIX UTERI STRUCTURE / Unknown 05/27/2022 13:36 EST 06/02/2022 14:29 EST Quita Babb PA-C MICROBIOLOGY - GENERAL ORDERABLES Performing Organization Address City/State/[facility] Co de Phone Number [facility] [address] [place] [address] * PAP TEST (05/27/2022 13:36 EST) Specimens A. Cervix and/or Endocervix , ThinPrep Imaging System with Manual Evaluation 06/03/2022 15:34 [facility] Specimen Adequacy Satisfactory for Evaluation - transformation zone component present 06/03/2022 15:34 [facility] General Categorization Negative for intraepithelial lesion or malignancy 06/03/2022 15:34 [facility] Attestation . 06/03/2022 15:34 [facility] at 1534 Clinical History Cervix 06/03/20 15:34 [facility] HPV The result for the Human Papillomavirus (HPV) Detection-High Risk Types is Negative. No E6 or E7 mRNA is detected from HPV types 16,18,31,33,35,39 ,45,51,52,56,58,5 9,66, and 68 by tourist home keeper mediated amplification.Betty ting was performed on specimen [id number] and was resulted on 06/03/2022 1534 EST by SHAZIA, LAB INSTRUMENT RESULTS IN 06/03/2022 15:34 EST [facility] Performing Lab [facility] 06/03/2022 15:34 EST [facility] Scanned Images 06/03/2022 15:34 EST [facility] Papanicolaou smear specimen (specimen) CERVIX UTERI STRUCTURE / Unknown 05/27/2022 13:36 EST 05/28/2022 10:41 EST Quita Babb PA-C PATHOLOGY JAIMEE ACOSTA [facility] [address] [place] [address] documented in this encounter Visit Diagnoses Diagnosis Encounter for gynecological examination without abnormal finding- Primary Routine gynecological examination documented in this encounter Discontinued Medications Medication Sig Discontinue Reason Start Date End Da te ondansetron (ZOFRAN-ODT) 8 mg disintegrating tablet Take 1 Tablet by mouth every 8 hours as needed for Nausea. Therapy completed 04/08/2022 05/27/2022 oxyCODONE (ROXICODONE) 5 mg immediate release tablet Take 1 Tablet by mouth every 4 hours as needed for Pain. Daily Max: 30 mg Therapy completed 05/14/2022 05/27/2022 oxyCODONE (ROXICODONE) 5 mg immediate release tablet Take 1 Tablet by mouth every 4 hours as needed for Pain. Daily Max: 30 mg Therapy completed 04/08/2022 05/27/2022 palbociclib 100 mg capsuleIndications:Metasta tic breast cancer Take 100 mg by mouth daily. Take 100 mg daily days 1-21 and then 7 days off. Total cycle length 28 days before restarting. Therapy completed 08/03/2021 05/27/2022 documented as of this encounter Care Teams Wire Turning Machine Operator Relationship Specialty Start Date End Date Linda Blancas MD [facility] [address] [place] [address] PCP - General 01/06/11 Adolfo Carreno MD [address] [place] [address], [facility] 2 [place] [address] General Surgery 04/26/19 Augustina Colin MD PhD [address] [place] [address] 2 [place] [phone] Medical Oncology 04/26/19 documented as of this encounter
--- OUTSIDE RECORDS SUMMARY | 2024-03-20 14:47 | XMS_ITS | Encounter Summary ---
Author Organization [facility] Address [address] [place] [address] Care Team Providers Care Clinical Document Improvement Educator Name Role Phone Linda Blancas MD Primary Care Provider [phone] Adolfo Carreno MD Unavailable [phone] Augustina Colin MD PhD Unavailable Unavailable Encounter Details Date Type Department Care Team (Late st Contact Info) Description 07/30/2022 Orders Only [facility] Hematology & Oncology - [facility] [address] [place] [address] Garima Boyce, SHELLEY Social History Tobacco Use [...] Dispensed Refills Start Date End Da te prasterone, dhea, (INTRAROSA) 6.[address] 6.5 mg vaginally daily. 28 Each 4 07/30/2022 12/14/2023 documented in this encounter Progress Notes * Garima Boyce, RN - 07/30/2022 1619 EST inrarosa sent to pharmacy. documented in this encounter Plan of Treatment Upcoming Encounters Date Type Department Care Team (Late st Contact Info) Description 04/02/2024 10:30 EDT Appointment [facility] Interventional Radiology Unit [address] [place] [address] [phone] 04/02/2024 15:15 EDT Office Visit [facility] Surgical Oncology - [address] [phone] Adolfo Carreno MD [address] [place] [address] [phone] 04/05/2024 9:30 EDT Telemedicine [facility] - [facility] Palliative Care Services [address] [place] [address] [phone] Chichi Woods MD [address] [place] [address], [address] [phone] 04/11/2024 15:[address] [facility] Hematology & Oncology - [address] [phone] Alisson Carreon MD [address] [place] [address] 2 [place] [phone] 04/13/2024 13:[address] [facility] Hematology & Oncology [address] [phone] 04/13/2024 14:[address] [facility] Hematology & Oncology [address] [address] 04/16/2024 10:00 EST Telemedicine [facility] - [facility] Palliative Care Services [address] [place] [address] [phone] Chichi Woods MD [address] [place] [address], [address] [phone] 04/24/2024 9:00 EST Appointment [facility] Radiology CT Outpatient - [address] [id number] 04/24/2024 11:00 EST Appointment [facility] Breast Imaging - [facility] [address] [phone] 04/27/2024 12:[address] [facility] Hematology & Oncology [address] [phone] 05/02/2024 15:[address] [facility] Hematology & Oncology - [address] [address] Alisson Carreon MD [address] [place] [address], [facility] [address] [place] [phone] 05/04/2024 10:15 EST Ancillary Procedure [facility] Cardiology - [place] [address] 05/04/2024 11:[address] [facility] Hematology & Oncology [address] [phone] 05/04/2024 12:00 EST Appointment [facility] Center Hematology & Oncology - [address] [address] 06/12/2024 13:00 EST [facility]ointment [facility] Radiology CT - [address] [address] documented as of this encounter Visit Diagnoses Not on filedocumented in this encounter Care Teams Clinical Document Improvement Educator Relationship Specialty Start Date End Date Linda Blancas MD [facility] [address] [place] [address] PCP - General 01/06/11 Adolfo Carreno MD [address] [place] [address], [facility] [address] [place] [phone] General Surgery 04/26/19 Augustina Colin MD PhD [address] [place] [address] 2 [place] [phone] Medical Oncology 04/26/19 documented as of this encounter
--- OUTSIDE RECORDS SUMMARY | 2024-03-20 14:47 | XMS_ITS | Encounter Summary ---
Author Organization [facility] Address [address] [place] [address] Care Team Providers Care Director Of Automation Name Role Phone Linda Blancas MD Primary Care Provider [phone] Adolfo Carreno MD Unavailable [phone] Augustina Colin MD PhD Unavailable Unavailable Reason for Visit * Reason Onset Date Comments Appointment Related 06/10/2022 Encounter Details Date Type Department Care Team (Late st Contact Info) Description 06/10/2022 Telephone [facility] [address] [place], [place] 444261 Augustina Colin, PhD Appointment Related Social History [...] encounter Miscellaneous Notes * Telephone Encounter - Suraj GARNER - 06/10/2022 0737 EST Screening Questions prior to Med Release 1. Do you have a fever or have had a fever of 100.4 degrees F. in the last 24 hours? no 2. Are you taking any medication for a recent infection? on 3. Have you had a recent illness, or changes in your health since your last infusion? If so, is your ordering provider aware? no 4. (for Remicade, Entyvio, Renflexis, Rituximab, Ocrevus, pts, 'mab' patients) Have you had any recent surgeries in the last month or have any planned in the near future? no documented in this encounter Plan of Treatment Upcoming Encounters Date Type Department Care Team (Late st Contact Info) Description 04/02/2024 10:30 EDT Appointment [facility] Inter[facility]iology [facility] [address] [place] [address] [phone] 04/02/2024 15:15 EDT Office Visit [facility] Surgical Oncology - [facility] [address] [place] [address] Adolfo Carreno MD 111 [facility], Level 2 [place] [address] 04/05/2024 9:30 EDT Telemedicine [facility] - [facility] [address] [place], [place] [phone] Chichi Woods MD [address] [facility], [address] [phone] 04/11/2024 15:00 EDT Telemedicine [facility] Hematology & Oncology - [address] [phone] Alisson Carreon MD [address] [place] [address], [facility] 2 [place] [phone] 04/13/2024 13:30 EDT Appointment [facility] Hematology & Oncology - [address] [phone] 04/13/2024 14:00 EDT Appointment [facility] Hematology & Oncology [address] 189131 04/16/2024 10:00 EST Telemedicine [facility] - [facility] [address] [place] [address] Chichi Woods MD [address] [place] [phone] 04/24/2024 9:00 EST Appointment [facility] Radiology CT Outpatient - [address] [id number] 04/24/2024 11:00 EST Appointment [facility] Breast Imaging - [facility] S [address] 790271 04/27/2024 12:00 EST Appointment [facility] Hematology & Oncology - [address] 282041 05/02/2024 15:00 EST Telemedicine [facility] Hematology & Oncology - [address] 328271 Alisson Carreon MD [address] [place] [address], [facility] 2 [place] [phone] 05/04/2024 10:15 EST Ancillary Procedure [facility] Cardiology - [address] [place] [address] 05/04/2024 11:30 EST Appointment [facility] Hematology & Oncology [address] [address] 05/04/2024 12:00 EST Appointment [facility] Hematology & Oncology [address] 485431 06/12/2024 13:00 EST Appointment [facility] Radiology CT - [address] 414151 documented as of this encounter Visit Diagnoses Not on filedocumented in this encounter Care Teams Director Of Automation Relationship Specialty Start Date End Date Linda Blancas MD [facility] [address] [place] [address] PCP - General 01/06/11 Adolfo Carreno MD [address] [place] [phone] General Surgery 04/26/19 Augustina Colin MD PhD [address] [place] [address] 2 [place] [phone] Medical Oncology 04/26/19 documented as of this encounter
--- OUTSIDE RECORDS SUMMARY | 2024-03-20 14:47 | XMS_ITS | Encounter Summary ---
Author Organization [facility] Address [address] [place] [address] Care Team Providers Care Research Manufacturing Operator Name Role Phone Linda Blancas MD Primary Care Provider [phone] Adolfo Carreno MD Unavailable [phone] Augustina Colin MD PhD Unavailable Unavailable Reason for Visit * Reason Onset Date Comments Medications Refill 07/22/2022 Encounter Details Date Type Department Care Team (Late st Contact Info) Description 07/22/2022 Telephone [facility] Hematology & Oncology - Main [place] [address] [place], [place] [phone] Augustina Colin, PhD Medications Refill Social History [...] Miscellaneous Notes * Telephone Encounter - Julia Guerrero - 07/22/2022 1149 EST Medication Request Medication: Capecitabine 500mg Medication refill: yes Medication dose change: no Refill due: 07/23 Date of last fill: 07/01/22 Pharmacy: [facility] appt: 07/27/2022 documented in this encounter Plan of Treatment Upcoming Encounters Date Type Department Care Team (Late st Contact Info) Description 04/02/2024 10:[address] [facility] Interventional Radiology Unit [address] [place] [address] 781301 04/02/2024 15:[address] [facility] Surgical Oncology - [address] [phone] Adolfo Carreno MD [address] [place] [address], [facility] 2 [place] [phone] 04/05/2024 9:[address] [facility] - [facility] Palliative Care Services [address] [place] [address] [phone] Chichi Woods MD [address] [place] [phone] 04/11/2024 15:00 EDT Telemedicine [facility] Hematology & Oncology - [address] [phone] Alisson Carreon MD [address] [place] [address], Level [address] [place] [phone] 04/13/2024 13:30 EDT Appointment [facility] Hematology & Oncology [address] 911911 04/13/2024 14:00 EDT Appointment [facility] Hematology & Oncology - [address] [phone] 04/16/2024 10:[address] [facility] Palliative Care Services [address] [place] [address] [phone] Chichi Woods MD [address] [place] [address], [address] [phone] 04/24/2024 9:00 EST Appointment [facility] Radiology CT Outpatient - [address] [id number] 04/24/2024 11:[address] [facility] Breast Imaging - [facility] S [address] 465251 04/27/2024 12:00 EST Appointment [facility] Hematology & Oncology [address] 363291 05/02/2024 15:00 EST Telemedicine [facility] Hematology & Oncology - [address] 101581 Alisson Carreon MD [address] [place] [address], Level [address] [place] [phone] 05/04/2024 10:[address] [facility] Cardiology - [address] Varma [place], [place] [phone] 05/04/2024 11:30 EST Appointment [facility] Hematology & Oncology - [address] [address] 05/04/2024 12:00 EST Appointment [facility] Cancer Center Hematology & Oncology - [address] [address] 06/12/2024 13:00 EST [facility]ment [facility] Rad[facility] - [address] [address] documented as of this encounter Visit Diagnoses Not on filedocumented in this encounter Additional Health Concerns Infection Onset Date Last Indicated Resolved Time R/O COVID-19 12/12/2023 12/12/2023 12/12/2023 15:3 5 EDT R/O COVID-19 01/08/2024 01/08/2024 01/08/2024 18:2 6 EDT R/O COVID-19 01/16/2024 01/16/2024 01/16/2024 17:5 0 EDT documented as of this encounter Care Teams Research Manufacturing Operator Relationship Specialty Start Date End Date Linda Blancas MD [facility] [address] [place] [address] PCP - General 01/06/11 Adolfo Carreno MD [address] [place] [address] [phone] General Surgery 04/26/19 Augustina Colin MD PhD [address] [place] [phone] Medical Oncology 04/26/19 documented as of this encounter
--- OUTSIDE RECORDS SUMMARY | 2024-03-20 14:47 | XMS_ITS | Encounter Summary ---
Author Organization [facility] Address [address] [place] [address] Care Team Providers Care Skylights Assembler Name Role Phone Linda Blancas MD Primary Care Provider [phone] Adolfo Carreno MD Unavailable [phone] Augustina Colin MD PhD Unavailable Unavailable Encounter Details Date Type Department Care Team (Late st Contact Info) Description 06/08/2022 Orders Only [facility] [address] [place] [address] Tracey Ballard, SHELLEY [address] [place] [address] Social History Tobacco Use Types Packs/Day Years [...] as of this encounter Progress Notes * Tracey Ballard, RN - 06/08/2022 1446 EST Message sent to provider to update Supportive Therapy Plan for 06/10/22 [facility]. documented in this encounter Plan of Treatment Upcoming Encounters Date Type Department Care Team (Late st Contact Info) Description 04/02/2024 10:30 EDT Appointment [facility] Interventional Radiology Unit [address] [place] [address] [phone] 04/02/2024 15:15 EDT Office Visit [facility] Surgical Oncology - [address] [phone] Adolfo Carreno MD [address] [place] [address] 2 [place] [phone] 04/05/2024 9:30 EDT Telemedicine [facility] - [facility] Palliative Care Services [address] [place], [place] [phone] Chichi Woods MD [address] [place] [address], [address] [phone] 04/11/2024 15:00 EDT Telemedicine [facility] Hematology & Oncology - [address] [phone] Alisson Carreon MD [address] [place] [address] 2 [place] [phone] 04/13/2024 13:30 EDT Appointment [facility] Hematology & Oncology - [address] 163711 04/13/2024 14:00 EDT Appointment [facility] Hematology & Oncology [address] [address] 04/16/2024 10:00 EST Telemedicine [facility] - [facility] Palliative [facility] Services [address] [place] [address] [phone] Chichi Woods MD [address] [place] [address] [phone] 04/24/2024 9:00 EST Appointment [facility] Radiology CT Outpatient - [address] 732291 04/24/2024 11:00 EST Appointment [facility] Breast Imaging - [facility] S [address] 365011 04/27/2024 12:00 EST Appointment [facility] Hematology & Oncology - [address] 108371 05/02/2024 15:00 EST Telemedicine [facility] Hematology & Oncology [address] 265151 Alisson Carreon MD [address] [place] [address], [facility], Level [address] [place] [phone] 05/04/2024 10:15 EST Ancillary Procedure [facility] Cardiology - [address] [place], [place] [phone] 05/04/2024 11:30 EST Appointment [facility] Hematology & Oncology - [address] 845511 05/04/2024 12:00 EST Appointment [facility] Hematology & Oncology - [address] [address] 06/12/2024 13:00 EST [facility]ment [facility] - [address] [phone] documented as of this encounter Visit Diagnoses Not on filedocumented in this encounter Care Teams Skylights Assembler Relationship Specialty Start Date End Date Linda Blancas MD [facility] [address] [place], [place] 657[address] PCP - General 01/06/11 Adolfo Carreno MD [address] [place] [address] [phone] General Surgery 04/26/19 Augustina Colin MD PhD [address] [place] [address] 2 [place] [phone] Medical Oncology 04/26/19 documented as of this encounter
--- OUTSIDE RECORDS SUMMARY | 2024-03-20 14:47 | XMS_ITS | Encounter Summary ---
Author Organization [facility] Address [address] [place] [address] Care Team Providers Care Edge Bonder Name Role Phone Linda Blancas MD Primary Care Provider [phone] Adolfo Carreno MD Unavailable [phone] Augustina Colin MD PhD Unavailable Unavailable Reason for Referral * Prior Authorization (Urgent) - Authorization Not Required Specialty Diagnoses / Procedures Referred By Contac t Referred To Contact Infusion Therapy Diagnoses Malignant neoplasm of female breast, unspecified estrogen receptor status, unspecified laterality, unspecified site of breast ([facility]) Augustina Colin MD PhD [facility] Adult Infusion Center [facility] 4 [address] [place] [address] Referral ID Status Reason Start Date Expiration Date Visits Requested Visits Authorized [id number] Authorization Not Required Specialty Services Required 3 [...] st Contact Info) Description 07/28/2022 Orders Only [facility] Hematology & Oncology - Main [place] [address] [place] [address] Lenore Simpson, RN [address] [place] [address] Malignant neoplasm of female breast, unspecified estrogen [...] Progress Notes * Lenore Simpson, RN - 07/28/2022 0927 EST C9D1 date deferred to 09/08 per note stating infusions need to be Q3 month. New [id number] sent to [facility] for scheduling documented in this encounter Plan of Treatment Upcoming Encounters Date Type Department Care Team (Late st Contact Info) Description 04/02/2024 10:30 EDT Appointment [facility] Interventional Radiology Unit [address] [place] [address] 04/02/2024 15:15 EDT Office Visit [facility] Surgical Oncology - [address] [phone] Adolfo Carreno MD [address] [place] [address] [phone] 04/05/2024 9:30 EDT Telemedicine [facility] Palliative Care Services [address] [place] [address] [phone] Chichi Woods MD [address] [place] [address] [phone] 04/11/2024 15:00 EDT Telemedicine [facility] Hematology & Oncology - [address] [address] Alisson Carreon MD [address] [place] [phone] 04/13/2024 13:30 EDT Appointment [facility] Hematology & Oncology [address] [address] 04/13/2024 14:00 EDT Appointment [facility] Hematology & Oncology - [address] [address] 04/16/2024 10:00 EST Telemedicine [facility] Palliative Care Services [address] [place] [address] [phone] Chichi Woods MD [address] [place] [address] [phone] 04/24/2024 9:[address] [facility] Radiology CT Outpatient - [address] [address] 04/24/2024 11:00 EST Appointment [facility] Breast Imaging - [facility] S [place] 1 [place], [place] 190831 04/27/2024 12:00 EST Appointment [facility] Hematology & Oncology [address] 203701 05/02/2024 15:00 EST Telemedicine [facility] Hematology & Oncology [address] 829561 Alisson Carreon MD [address] [place] [address], Level 2 [place] [phone] 05/04/2024 10:15 EST Ancillary Procedure [facility] Cardiology [place] [address] 05/04/2024 11:30 EST Appointment [facility] Hematology & Oncology [address] 302871 05/04/2024 12:00 EST Appointment [facility] Hematology & Oncology [address] 983191 06/12/2024 13:[address] [facility] Radiology CT - [address] [phone] Scheduled Referrals Name Type Priority Associated Diagnoses Orde r Schedule AMB CONS/FOLLOW UP [facility] Outpatient Referral Urgent Malignant neoplasm of female breast, unspecified estrogen receptor status, unspecified laterality, unspecified site of breast (HCC-CMS) Expected: 07/30/2022 (Approximate), Expires: 07/28/2023 documented as of this encounter Visit Diagnoses Diagnosis Malignant neoplasm of female breast, unspecified estrogen receptor status, unspecified laterality, unspecified site of breast (HCC-CMS)- Primary documented in this encounter Care Teams Edge Bonder Relationship Specialty Start Date End Date Linda Blancas MD [facility] [address] [place] [address] PCP - General 01/06/11 Adolfo Carreno MD [address] [place] [phone] General Surgery 04/26/19 Augustina Colin MD PhD [address] [place] [phone] Medical Oncology 04/26/19 documented as of this encounter
--- OUTSIDE RECORDS SUMMARY | 2024-03-20 14:47 | XMS_ITS | Encounter Summary ---
Author Organization [facility] Address [address] [place] [address] Care Team Providers Care Talent Development Consultant Name Role Phone Linda Blancas MD Primary Care Provider [phone] Adolfo Carreno MD Unavailable [phone] Augustina Colin MD PhD Unavailable Unavailable Encounter Details Date Type Department Care Team (Late st Contact Info) Description 06/07/2022 Specialty Pharmacy [facility] - [facility] [address] [place], [place] 556671 Allen Day, [facility] Social History Tobacco Use Types Packs/Day [...] as of this encounter Progress Notes * Carlos Tellez - 06/07/2022 0853 EST [facility] Specialty Pharmacy Delivery Information Hours: Tuesday-Tuesday 8:30am - 5:00pm *Pharmacist available applications administrator 03/01 Delivery Service: [facility] Delivery Window: 1pm - 5pm Date of Delivery: 06/10 Tracking # : [id number] documented in this encounter Plan of Treatment Upcoming Encounters Date Type Department Care Team (Late st Contact Info) Description 04/02/2024 10:30 EDT Appointment [facility] Interventional Radiology Unit [address] [place] [address] [phone] 04/02/2024 15:15 EDT Office Visit [facility] Surgical Oncology - [address] [phone] Adolfo Carreno MD [address] [place] [address] [phone] 04/05/2024 9:30 EDT Telemedicine [facility] - [facility] Palliative Care Services [address] [place] [address] [phone] Chichi Woods MD [address] [place] [address] [phone] 04/11/2024 15:00 EDT Telemedicine [facility] Hematology & Oncology - [address] 734131 Alisson Carreon MD [address] [place] [address] 2 [place] [phone] 04/13/2024 13:30 EDT Appointment [facility] Hematology & Oncology - [address] [phone] 04/13/2024 14:00 EDT Appointment [facility] Hematology & Oncology - [address] 242521 04/16/2024 10:00 EST Telemedicine [facility] - [facility] Palliative Care Services [address] [place] [address] [phone] Chichi Woods MD [address] [place] [address], [address] [phone] 04/24/2024 9:00 EST Appointment [facility] Radiology CT Outpatient - [address] 686281 04/24/2024 11:00 EST Appointment [facility] Breast Imaging - [facility] S [address] 307111 04/27/2024 12:00 EST Appointment [facility] Hematology & Oncology [address] 213031 05/02/2024 15:00 EST Telemedicine [facility] Hematology & Oncology - [address] [address] Alisson Carreon MD [address] [place] [address], Level [address] [place] [phone] 05/04/2024 10:15 EST Ancillary Procedure [facility] Cardiology [place] [address] 05/04/2024 11:30 EST Appointment [facility] Hematology & Oncology - [address] [address] 05/04/2024 12:00 EST Appointment [facility] Hematology & Oncology - [address] [address] 06/12/2024 13:00 EST Appointment [facility] Radiology CT - [address] [address] documented as of this encounter Visit Diagnoses Not on filedocumented in this encounter Care Teams Talent Development Consultant Relationship Specialty Start Date End Date Linda Blancas MD [facility] [address] [place] [address] PCP - General 01/06/11 Adolfo Carreno MD [address] [place] [address], [facility] 2 [place] [phone] General Surgery 04/26/19 Augustina Colin MD PhD [address] [place] [address], [facility] 2 [place] [phone] Medical Oncology 04/26/19 documented as of this encounter
--- OUTSIDE RECORDS SUMMARY | 2024-03-20 14:47 | XMS_ITS | Encounter Summary ---
Author Organization [facility] Address [address] [place] [address] Care Team Providers Care Coal Yard Supervisor Name Role Phone Linda Blancas MD Primary Care Provider [phone] Adolfo Carreno MD Unavailable [phone] Augustina Colin MD PhD Unavailable Unavailable Reason for Visit * Reason Comments Follow-up Encounter Details Date Type Department Care Team (Late st Contact Info) Description 07/27/2022 9:00 EST Telemedicine [facility] Hematology & Oncology - Main [place] [address], [place] [address] Augustina Colin, MD PhD Vaginal atrophy (Primary Dx) Social History Tobacco Use Types [...] Notes * Augustina Colin MD PhD - 07/27/2022 0900 EST REASON FOR OFFICE VISIT: ??Discussion of side [...] in patient???s medical or mental health care. She is joined by her . PROBLEM LIST: 1. 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 a. ??Ultrasound performed in [place]??identifying an irregular heterogeneous soft tissue mass measuring 1.2 x 1.2 x 1.5 cm. ?? 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 ??HER-2 1+ by IHC. ??ANNE MARIE revealed [...] breast tumor 07/07/17 and placement of tissue audio video mechanic. ??1.9 cm tumor at time of surgery, [...] Dr Moya 04/08/22 and again 05/14/22 K. 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 ??Restaging scans: ?? - MRI Abdomen 02/25/22: Decrease in size of hepatic lesions - CT Chest 11/26/21 - Stable to [...] cancer in her 30s. ??Hormone replacement therapy forabout 5 years after the premature ovarian failure [...] related to capecitabine and scan results. The nuclear bone scan was stable from last week. Her tumor marker has also been decreasing. Her hands and feet are healed. She has worked up to 1500 mg BID. But she has cracking in her fingers. She also has constipation. ROS: A 10 point review of [...] Then hold for seven days. Repeat pattern. ??? gabapentin (NEURONTIN) 100 mg capsule Take 2 Caps by mouth 2 times daily. (Patient taking differently: Take 600 mg by mouth 2 times daily. Takes 300 mg qam and pm and 600 mg qhs) ??? ibuprofen (MOTRIN) 200 mg tablet Take 400 mg by mouth as needed. ??? MULTIVITS W-CA,FE,OTHER MIN (WOMEN'S DAILY FORMULA ORAL) Take by mouth daily. ??? mv-mn/C/glutamin/lysin/qiwh234 (AIRBORNE, ASCORBATE SODIUM, ORAL) Take by mouth as needed. (Patient not taking: No sig reported) ??? omeprazole (PRILOSEC) 20 mg capsule Take 20 mg by mouth daily. ??? ondansetron (ZOFRAN-ODT) 8 mg disintegrating tablet Take 1 Tablet by mouth every 8 hours as needed for Nausea. (Patient not taking: No sig reported) ??? RED YEAST RICE EXTRACT ORAL Take 1,200 mg by mouth daily. 600mg 2x a day ??? valACYclovir (VALTREX) 500 mg tablet Take 1 Tab by mouth daily. ??? venlafaxine (EFFEXOR-XR) 150 mg XR capsule Take 1 Cap by mouth daily. No facility-administered medications prior to visit. Social History Tobacco Use ??? Smoking status: Never ??? Smokeless tobacco: Never Substance Use Topics ??? Alcohol use: Yes Alcohol/week: 2.0 standard drinks Types: 2 Glasses of wine per week Presents the clinic with her partner. She continues to be active. Objective: There were no vitals taken for this visit. Estimated body mass index is 25.35 kg/m?? as calculated from the following: Height as of 05/14/22: 152.5 cm (60.05). Weight as of 05/27/22: 59 kg (130 lb). ECOG Performance Status: 0 General: Comfortable, cooperative and in no apparent distress NEURO: Alert and oriented x 3; Grossly neurologically intact DIAGNOSTIC DATA No visits with results within 1 Day(s) from this visit. Latest known visit with results is: Hospital Outpatient Visit on 06/10/2022 Component Date Value Ref Range Status ??? Sodium 06/10/2022 138 136 - 145 mmol/L Final ??? Potassium 06/10/2022 5.4 (A) 3.5 - 5.0 mmol/L Final Moderate hemolysis identified, interpret with caution as hemolysis will elevate potassium result. ??? Chloride 06/10/2022 103 96 - 110 mmol/L Final ??? CO2 Total 06/10/2022 27 22 - 32 mmol/L Final ??? Glucose 06/10/2022 66 (A) 70 - 100 mg/dL Final ??? BUN 06/10/2022 16 10 - 26 mg/dL Final Moderate hemolysis identified, interpret with caution as results may be affected due to hemolysis. ??? Creatinine 06/10/2022 0.61 0.52 - 1.04 mg/dL Final ? ? eGFR 06/10/2022 102 >60 mL/min/1.73m2 Final ??? Total Protein 06/10/2022 7.4 6.3 - 8.2 g/dL Final Moderate hemolysis identified, interpret with caution as results may be affected due to hemolysis. ??? Albumin 06/10/2022 4.0 3.4 - 4.9 g/dL Final Moderate hemolysis identified, interpret with caution as results may be affected due to hemolysis. ??? Alkaline Phosphatase 06/10/2022 197 (A) 38 - 126 U/L Final Moderate hemolysis identified. Hemolysis will decrease ALKP result. Suggest re- evaluation if clinically indicated ??? AST 06/10/2022 105 (A) 15 - 46 U/L Final Moderate hemolysis identified, interpret with caution as results may be affected due to hemolysis. ? ? ALT 06/10/2022 55 (A) <35 U/L Final ? ? Bilirubin, Total 06/10/2022 1.3 <1.4 mg/dL Final Moderate hemolysis identified, interpret with caution as results may be affected due to hemolysis. ??? Calcium 06/10/2022 9.3 8.5 - 10.5 mg/dL Final ??? Albumin/Globulin Ratio 06/10/2022 1.2 1.0 - 2.5 Final ??? Anion Gap 06/10/2022 8 5 - 14 Final ??? I.N.R. 06/10/2022 0.9 0.9 - 1.1 Ratio Final ??? Pro Time 06/10/2022 10.4 9.7 - 12.8 secs Final ??? WBC 06/10/2022 7.30 4.00 - 12.40 K/cmm Final ??? RBC 06/10/2022 4.23 3.86 - 5.04 M/cmm Final ??? Hemoglobin 06/10/2022 14.6 11.6 - 15.2 gm/dL Final ??? HCT 06/10/2022 43.8 34.9 - 44.4 % Final ??? MCV 06/10/2022 104 (A) 81 - 98 fl Final ??? MCH 06/10/2022 34.5 (A) 26.7 - 33.3 pg Final ??? MCHC 06/10/2022 33.3 32.1 - 35.9 gm/dL Final ? ? RDW-CV 06/10/2022 14.1 <14.7 % Final ? ? RDW-SD 06/10/2022 53.3 (A) <50.4 fl Final ??? PLT 06/10/2022 110 (A) 141 - 377 K/cmm Final ??? MPV 06/10/2022 11.6 9.5 - 12.7 fl Final ??? % Neutrophils 06/10/2022 70.0 % Final ??? % Lymphocytes 06/10/2022 14.0 % Final ??? % Monocytes 06/10/2022 14.7 % Final ??? % Eosinophils 06/10/2022 0.8 % Final ??? % Basophils 06/10/2022 0.4 % Final ??? % Immature Grans 06/10/2022 0.1 % Final ??? Absolute Neutrophils 06/10/2022 5.11 2.20 - 8.85 K/cmm Final ??? Absolute Lymphocytes 06/10/2022 1.02 (A) 1.09 - 3.30 K/cmm Final ??? Absolute Monocytes 06/10/2022 1.07 (A) 0.10 - 0.80 K/cmm Final ??? Absolute Eosinophils 06/10/2022 0.06 0.03 - 0.61 K/cmm Final ??? ABS Basophils 06/10/2022 0.03 0.01 - 0.11 K/cmm Final ??? Absolute Immature Grans 06/10/2022 0.01 0.00 - 0.06 K/cmm Final ??? Type of Differential: 06/10/2022 Auto Final ? ? CA 27.29 06/10/2022 76.8 (A) <38.0 U/mL Final NOTE: Serum CA 27.29 concentration should not be interpreted as absolute evidence for the presence or absence of malignant disease. Assayed on Siemens ADVIA Centaur XPT using chemiluminescent technology. ??Values obtained by using different assay methods cannot be used interchangeably. ASSESSMENT: ??Ms Bernstein is a 61-year-old female with metastatic breast cancer.?? She had been currently receiving fluvesterant and palbociclb. The MR of the abdomen indicates progression of liver lesions. She has been on capecitabine for approximatley 3 months. Currently Capecitabine 1000mg am and 1000mg pm 1 week on 1 week off. We will plan to increas the dose to.?? Zolendronic acid to every 3 mos for now. She takes a vitamin D supplement. PLAN: 1. Capecitabine 1500mg am and 1000mg pm 2. Zoledronic acid q 3mo, next due end of August 2021; Continued Vit D supplementation 3. MR abdomen August 2022. 4. Continued follow-up with Dr. Scriver 5. FUR when she has zometa. Labs that day including CA 27 TELEMEDICINE VIDEO VISIT Today's visit was provided through telemedicine video conferencing: I have reviewed the appropriateness of using video technology with the patient with regards to today's visit. The location of the patient : Home Patient location state: Visit Location State: [place] The location of the provider: Office Provider location state: Visit Location State: [place] The following people and their roles were present for today's visit: Appointment Provider: Augustina Colin MD PhD Augustina Colin MD PhD documented in this encounter Miscellaneous Notes * Addendum Note - Augustina Colin MD PhD - 07/27/2022 0900 ESTAddended by: AUGUSTINA COLIN on: 07/28/2022 09:39 Modules accepted: Orders documented in this encounter Plan of Treatment Upcoming Encounters Date Type Department Care Team (Late st Contact Info) Description 04/02/2024 10:30 EDT Appointment [facility] Interventional Radiology Unit [address] [place] [phone] 04/02/2024 15:15 EDT Office Visit [facility] Surgical Oncology - [address] [phone] Adolfo Carreno MD 111 [facility], Level [address] [place] [phone] 04/05/2024 9:30 EDT Telemedicine [facility] - [facility] Palliative Care Services [address] [place] [address] [phone] Chichi Woods MD 111 [facility], [address] [place] [phone] 04/11/2024 15:00 EDT Telemedicine [facility] Hematology & Oncology - [address] [phone] Alisson Carreon MD [address] [place] [address] 2 [place] [phone] 04/13/2024 13:30 EDT Appointment [facility] Hematology & Oncology - [address] [phone] 04/13/2024 14:00 EDT Appointment [facility] Hematology & Oncology - [address] [phone] 04/16/2024 10:00 EST Telemedicine [facility] Palliative Care Services [address] [place] [address] [phone] Chichi Woods MD [address] [place] [phone] 04/24/2024 9:00 EST Appointment [facility] Radiology CT Outpatient - [address] [phone] 04/24/2024 11:00 EST Appointment [facility] Breast Imaging - [facility] [address] [phone] 04/27/2024 12:00 EST Appointment [facility] Hematology & Oncology - [address] [phone] 05/02/2024 15:00 EST Telemedicine [facility] Hematology & Oncology - [address] [phone] Alisson Carreon MD [address] [place] [address], [facility] 2 [place] [phone] 05/04/2024 10:15 EST Ancillary Procedure [facility] Cardiology - [address] [place], [place] [phone] 05/04/2024 11:30 EST Appointment [facility] Hematology & Oncology [address] [address] 05/04/2024 12:00 EST Appointment [facility] Hematology & Oncology [address] [address] 06/12/2024 13:00 EST Appointment [facility] Radiology CT - [address] [address] documented as of this encounter Visit Diagnoses Diagnosis Vaginal atrophy- Primary Postmenopausal atrophic vaginitis documented in this encounter Care Teams Coal Yard Supervisor Relationship Specialty Start Date End Date Linda Blancas MD [facility] [address] [place] [address] PCP - General 01/06/11 Adolfo Carreno MD [address] [place] [phone] General Surgery 04/26/19 Augustina Colin MD PhD [address] [place] [phone] Medical Oncology 04/26/19 documented as of this encounter
--- OUTSIDE RECORDS SUMMARY | 2024-03-20 14:48 | XMS_ITS | Encounter Summary ---
Author Organization [facility] Address [address] [place] [address] Care Team Providers Care Borough Coordinator Name Role Phone Linda Blancas MD Primary Care Provider Adolfo Carreno MD Unavailable [phone] Augustina Colin MD PhD Unavailable Unavailable Reason for Referral * Radiology Services (Routine/Next Available) - Authorization Not Required Specialty Diagnoses / Procedures Referred By Contac t Referred To Contact Nuclear Medicine Diagnoses Liver metastases Procedures NM TUMOR LOCALIZATION WITH SPECT/CT ScrDavid peters MD [address] [place] [phone] [facility] Referral ID Status Reason Start Date Expiration Date Visits Requested Visits Authorized [id number] Authorization Not Required 04/19/2022 1 1 Reason for Visit * Radiology Services (Routine/Next Available) - Authorization Not Required Specialty Diagnoses / Procedures Referred By Contac t Referred To Contact Nuclear Medicine Diagnoses Liver metastases Procedures NM TUMOR LOCALIZATION WITH SPECT/CT David Moya MD [address] [place] [phone] [facility] Referral ID Status Reason Start Date Expiration Date Visits Requested Visits Authorized [id number] Authorization Not Required 04/19/2022 1 1 Encounter Details Date Type Department Care Team (Latest Contact Info) Description 05/14/2022 6:38 EST - 05/14/2022 23:59 EST Hospital Encounter [facility] Radiology Nuclear [place] [address] Liver metastases (HCC-CMS) (HCC) (HCC-CMS) Discharge Disposition: Home or [...] Tablets by mouth as needed. 12/07/2023 mv-mn/C/glutamin/lysin/h [id number] (AIRBORNE, ASCORBATE SODIUM, ORAL) Take by mouth as needed. 12/14/2023 omeprazole (PRILOSEC) 20 mg capsule Take 1 Capsule by mouth daily. 03/28/2023 ondansetron (ZOFRAN-ODT) 8 mg disintegrating tablet Take 1 Tablet by mouth every 8 hours as needed for Nausea. 30 Tablet 05/14/2022 09/22/2023 ondansetron (ZOFRAN-ODT) 8 mg disintegrating tablet Take 1 Tablet by mouth every 8 hours as needed for Nausea. 15 Tablet 04/08/2022 05/27/2022 oxyCODONE (ROXICODONE) 5 mg immediate release tablet Take 1 Tablet by mouth every 4 hours as needed for Pain. Daily Max: 30 mg 9 Tablet 05/14/2022 05/27/2022 oxyCODONE (ROXICODONE) 5 mg immediate release tablet Take 1 Tablet by mouth every 4 hours as needed for Pain. Daily Max: 30 mg 9 Tablet 04/08/2022 05/27/2022 palbociclib 100 mg capsuleIndications:Metas tatic breast cancer Take 100 mg by mouth daily. Take 100 mg daily days 1-21 and then 7 days off. Total cycle length 28 days before restarting. 21 capsule 5 08/03/2021 05/27/2022 venlafaxine (EFFEXOR-XR) 150 mg XR capsule Take [...] System [facility] Interventional Radiology Unit [address] [place] [address] 04/02/2024 15:15 EDT Office Visit [facility] Surgical Oncology - [address] [phone] Adolfo Carreno MD [address] [place] [address] 2 [place] [phone] 04/05/2024 9:30 EDT Telemedicine [facility] Palliative Care Services [address] [place] [address] [phone] Chichi Woods MD [address] [place] [phone] 04/11/2024 15:00 EDT Telemedicine [facility] Hematology & Oncology - [address] [phone] Alisson Carreon MD [address] [place] [phone] 04/13/2024 13:30 EDT Appointment [facility] Hematology & Oncology - [address] [phone] 04/13/2024 14:00 EDT Appointment [facility] Hematology & Oncology - [address] [address] 04/16/2024 10:00 EST Telemedicine [facility] Palliative Care Services [address] [place] [address] [phone] Chichi Woods MD [address] [place] [phone] 04/24/2024 9:00 EST Appointment [facility] Radiology CT Outpatient - [address] [id number] 04/24/2024 11:00 EST Appointment [facility] Breast Imaging - [facility] [address] [place], [place] [phone] 04/27/2024 12:00 EST Appointment [facility] Hematology & Oncology - [address] [address] 05/02/2024 15:00 EST Telemedicine [facility] Hematology & Oncology [address] [phone] Alisson Carreon MD [address] [place] [address], [facility], Level 2 [place] [phone] 05/04/2024 10:15 EST Ancillary Procedure [facility] Cardiology [place] [address] [place] [address] 05/04/2024 11:30 EST Appointment [facility] Hematology & Oncology - [address] [phone] 05/04/2024 12:00 EST Appointment [facility] Hematology & Oncology - [address] [phone] 06/12/2024 13:00 EST Appointment [facility] Radiology CT - [address] [phone] documented as of this encounter Procedures Procedure Name Priority Date/Time Associated Diagnosis Comments NM TUMOR LOCALIZATION WITH SPECT/CT Routine 05/14/2022 13:07 EST Liver metastases (HCC-CMS) (HCC) (HCC-CMS) documented in this encounter Results * NM TUMOR LOCALIZATION WITH SPECT/CT (05/14/2022 13:07 EST) Anatomical Region Laterality Modality Nuclear Medicine 05/14/2022 15:3 0 EST Impressions 05/14/2022 15:30 EST Expected increased uptake in the left lobe including the target region in segment IVb following delivery of Y 90 microspheres. I have personally reviewed the images and the above interpretation and agree with the findings. Narrative 05/14/2022 15:30 EST NM TUMOR LOCALIZATION WITH SPECT/CT ??05/14/2022 12:00 PM SIGNS AND SYMPTOMS/COMMENTS: Y90 COMPARISON: Tc-99m MAA Liver SPECT/06/2021 TECHNIQUE: SPECT/CT images of the upper abdomen were obtained after the patient was previously injected intra-arterially in the left hepatic artery with Y-90 microspheres. Comparison: MR abdomen with and without contrast 02/25/2022 FINDINGS: There is increased uptake throughout essentially the entire left lobe which is most concentrated within segments 4A and 4B, including the site that was mapped on SPECT-CT from one day prior. No extrahepatic intra-abdominal uptake. Incidental CT findings: Bilateral breast implants are again seen. Incompletely imaged calcified focus in the pelvis just to the right of midline, likely a calcified fibroid. Lytic osseous lesions are seen in the in the right iliac bone there are healing bilateral rib fractures, also present on prior. Lumbar spinal fusion hardware is again seen. Procedure Note Merry Dooley MD - 05/14/2022 NM TUMOR LOCALIZATION WITH SPECT/CT 05/14/2022 12:00 PM SIGNS AND SYMPTOMS/COMMENTS: Y90 COMPARISON: Tc-99m MAA Liver SPECT/06/2021 TECHNIQUE: SPECT/CT images of the upper abdomen were obtained after thepatient was previously injected intra-arterially in the left hepaticartery with Y-90 microspheres. Comparison: MR abdomen with and without contrast 02/25/2022 FINDINGS: There is increased uptake throughout essentially the entire leftlobe which is most concentrated within segments 4A and 4B, including thesite that was mapped on SPECT-CT from one day prior. No extrahepatic intra-abdominal uptake. Incidental CT findings: Bilateral breast implants are again seen.Incompletely imaged calcified focus in the pelvis just to the right ofmidline, likely a calcified fibroid. Lytic osseous lesions are seen in thein the right iliac bone there are healing bilateral rib fractures, alsopresent on prior. Lumbar spinal fusion hardware is again seen. IMPRESSION Expected increased uptake in the left lobe including the target region insegment IVb following delivery of Y 90 microspheres. I have personally reviewed the images and the above interpretation andagree with the findings. David Moya MD [facility] NM ORDER ANUSHA documented in this encounter Visit Diagnoses Diagnosis Liver metastases Secondary malignant neoplasm of liver documented in this encounter Care Teams Borough Coordinator Relationship Specialty Start Date End Date Linda Blancas MD [address] [place] [address] [address] [place] [address] PCP - General 01/06/11 Adolfo Carreno MD [address] [place] [phone] General Surgery 04/26/19 Augustina Colin MD PhD [address] [place] [phone] Medical Oncology 04/26/19 documented as of this encounter
--- OUTSIDE RECORDS SUMMARY | 2024-03-20 14:48 | XMS_ITS | Encounter Summary ---
Author Organization [facility] Address [address] [place] [address] Care Team Providers Care Armhole Baster Jumpbasting Name Role Phone Linda Blancas MD Primary Care Provider [phone] Adolfo Carreno MD Unavailable [phone] Augustina Colin MD PhD Unavailable Unavailable Reason for Referral * Radiology Services (Routine/Next Available) - Authorization Not Required Specialty Diagnoses / Procedures Referred By Contac t Referred To Contact Diagnoses Liver metastasis Procedures IR EMBOLIZATION ME VASCULAR EMBOLIZE/OCCLUDE ORGAN TUMOR INFARCT [facility] [address] [place] [address] [facility] Referral ID Status Reason Start Date Expiration Date Visits Requested Visits Authorized [id number] Authorization Not Required 2 1 1 * Radiology Services (Routine/Next Available) - Authorization Not Required Specialty Diagnoses / Procedures Referred By Contac t Referred To Contact Diagnoses Liver metastasis Procedures IR EMBOLIZATION ME VASCULAR EMBOLIZE/OCCLUDE ORGAN TUMOR INFARCT [facility] [address] [place] [address] [facility] Referral ID Status Reason Start Date Expiration Date Visits Requested Visits Authorized [id number] Authorization Not Required 2 1 1 * Radiology Services (Routine/Next Available) - Specialty Report Received Specialty Diagnoses / Procedures Referred By Contac t Referred To Contact Diagnoses Liver metastasis Procedures IR EMBOLIZATION ME VASCULAR EMBOLIZE/OCCLUDE ORGAN TUMOR INFARCT David Moya MD [address] [place] [phone] [facility] Referral ID Status Reason Start Date Expiration Date V isits Requested Visits Authorized [id number] Specialty Report Received 03/16/2022 1 1 Reason for Visit * Radiology Services (Routine/Next Available) - Specialty Report Received Specialty Diagnoses / Procedures Referred By Doug hearn Referred To Contact Diagnoses Liver metastasis Procedures IR EMBOLIZATION ME VASCULAR EMBOLIZE/OCCLUDE ORGAN TUMOR INFARCT David Moya MD [address] [place] [phone] [facility] Referral ID Status Reason Start Date Expiration Date V isits Requested Visits Authorized [id number] Specialty Report Received 03/16/2022 1 1 Encounter Details Date Type Department Care Team (Late st Contact Info) Description 04/08/2022 7:02 EDT - 04/08/2022 23:59 EDT Hospital Encounter [facility] Interventional Radiology Unit [address] [place] [address] David Moya MD [address] [place] [phone] Ingris Chin, [address] [place] [address] [place], [place] [id number] [phone] Liver metastasis (HCC-CMS) (HCC) (HCC-CMS) Discharge Disposition: [...] Sign Reading Time Taken Comments Blood Pressure 149/70 04/08/2022 1430 EDT Pulse 71 04/08/2022 0715 EDT Temperature 36.4 ??C (97.5 ??F) 04/08/2022 1306 EDT Respiratory Rate 16 04/08/2022 1430 EDT Oxygen Saturation 97% 04/08/2022 1430 EDT Inhaled Oxygen Concentration - - Weight 59.9 kg (132 lb) 04/08/2022 0715 EDT Height 152.4 cm (5') 04/08/2022 0715 EDT Body Mass Index 25.78 04/08/2022 0715 EDT documented in this encounter Functional Status [...] * Discharge Instructions* Quita Garcia RN - 04/08/2022 7:21 EDT [facility] Interventional Radiology Patient Discharge Education Radioembolization Therapy (SirSpheres and Theraspheres) Procedure Wound Site - left Radial Dr. David Moya MD has completed an angiogram of your Abdomen. Radioembolization is used to treat primary liver cancer and other cancers that have metastasized tothe liver. Radioembolization is used to deliver targeted internal radiation therapy directly to thetumor. This is delivered via tiny beads that are combined with a radiation isotope called Y90. The ???half life?? of the radiation is 64 hours. This means that every 64 hours the level of radiation falls by ?? until it is effectively gone after 2 weeks. The spheres are injected into the artery supplying blood to the tumors and are trapped in the tumor???s vascular bed where they destroy the tumor cells by radiation. The radiation can penetrate only 1/2?? of tissue, so very little radiation is emitted from the body. Using x-ray guidance, a small catheter is inserted into an artery and fed up to the liver. Special dye is first injected which allows pictures to be taken and the vessels surrounding the tumor to be visualized. Then the beads are injected into the liver directed at the tumor. You have had a angiogram performed through a small incision in the artery in your wrist. Your artery was closed using the following method: TR Band, and then a Gauze and Tegaderm Dressing. Care of your Incision: For your wrist incision, keep the area clean and dry. Leave the sterile dressing in place for 24 hours. After this you may shower but no dishwashing, tub baths, swimming, or hot tubs for 5 days. You may remove your dressing the next day (24 hours) in the shower and wash the area gently - do not scrub. (It is best to loosen the dressing off with warm water in the shower). Apply a sterile bandage such as a Band Aid to the site after your shower daily until the site heals(usually about 5 days). DO NOT apply any creams, powders, lotions or antibiotic ointments to this area. Activity: Because you had an ARM approach, keep your arm comfortably straight for the first 24 hours and AVOID bending or lifting with your ARM for 48-72 hours. No heavy lifting (>10 pounds) for one week. Normal Observations: Soreness or tenderness at the site that may last one week. Bruising that could last 2 weeks. Formation of a small lump (dime to quarter size) which may last up to 6 weeks. *If you note any signs of bleeding, such as a saturated dressing, or bulging under the skin (size of a golf ball or larger), put DIRECT PRESSURE on the area and call your doctor immediately. If bleeding persists after 10 minutes with pressure held, CALL 911. Call your Physician immediately if you experience any of the following: Fever (temp >101), swelling, redness or signs of infection (including yellow discharge). Persistent and increasing pain at the site of the wound, in your extremity, or your back. Numbness or tingling at a point below the wound. Skin rash. If you have not been able to urinate within 24 hours of the procedure. EXPECTED SIDE EFFECTS: All of the following signs are part of a normal recovery after Chemoembolization. Within a month after the procedure you should be back to your usual self. ??? Right upper abdominal pain for the first few days to weeks. It may radiate to the shoulder or back. You will be given medicine to help control the pain. This pain usually gets better within the first week. ??? Extreme fatigue or tiredness for two to four weeks after the procedure. ??? A poor appetite which may result in weight loss before your appetite returns - continue to eat even if you have no appetite. Small, frequent meals are the best way to prevent weight loss. ??? It is normal to have a bruise and soreness where the angiogram catheter went in. 1. Please drink extra fluids today (6-8 glasses). This will encourage the excretion of the contrastdye material. 2. Do not drive or make any legal decisions today as you have received medications. 3. If you feel a tingling sensation or lack of feeling in the affected extremity, call your local doctor. 4. If you note any signs of bleeding, such as bulging under the skin the size of a golf ball, put direct pressure to the area, call your doctor, and go to the nearest emergency room or call 911 for assistance. 5. You may resume all of your normal dietary and medication requirements. 6. Leave the sterile dressing on for 24 hours, then shower and clean the area daily. Place a clean Band-Aid over the site each day for 5 days. 7. Do not take a tub bath, go in a hot tub or submerge in water for 5 days 8. Do not put lotions or powder on the area for 5 days. 9. Report any signs of infection (redness, swelling, discharge and fever) to your doctor. 10. Refrain from strenuous activity for at least 48 hours. 11. Follow up with your Primary Care Physician. The results of your Angiogram will be sent directlyto your physician within 3 working days. CLOSURE DEVICE TR Band - This compression device will be removed prior to your discharge. Follow the instructions for wound care above. Going Home the Morning after Treatment: Drink 6 to 8 glasses of liquid each day. It is especially important to do this if you are vomiting.Or, follow your caregiver's advice if you must limit the amount of liquids you drink. Good liquids to drink are water, juices, and milk. Nausea is not uncommon following this procedure. Eat light for the first 24 hours and try to stay away from foods that trigger the nausea for you. A prescription for two anti-nausea medicines has been given to you. Medications: Usually, your pre-procedure medications do not change. You will be told before discharge if any of your medicines change. The following medications will be prescribed to you upon discharge IN ADDITION to your normal medicines: 1. Protonix (pantoprazole), a stomach acid overlock collar setter. Take this every day for 1 month regardless of stomach pain. Please take this medication until you see us in clinic for follow up. You have two refills on your prescription. Some patients continue this past their one month visit, and we will determine this when we see you. 2. Narcotic pain medicine, usually oxycodone (generic for Percocet). Take this if you have pain, but not more frequently than every [address] after taking this medicine, it causes drowsiness If the bottle says it has Acetaminophen with it, do not take additional Tylenol while taking thismedication. This medicine causes constipation. If this is a problem for you, increase your fluid intake and take an over the counter stool softener such as docusate sodium or dulcolax. Call us if you have not had a bowel movement in more than three days. 3. Zofran (odansetran), anti-nausea medicine. 4. Phenergan (promethazine), anti-nausea medicine. Take this if you have nausea, but not more frequently than every 6 hours. This medicine causes drowsiness Follow Up: ??? We want to see you in our clinic for follow up 1 month after treatment. We also want to see follow up labs again at 1 month. These labs can be done on the day of your clinic visit here at [facility] or a few days before if you choose to have them drawn by your home. Exact timing of this visit is not critical. We will call you to schedule this, but if you don???t hear from us within two weeks of treatment, please call [phone] to set up this appointment. ??? We recommend calling your liver doctor/oncologist to set up a follow up appointment after you are discharged from the hospital. Every doctor is different in when they want to see their patients after treatment, but at a minimum, we would like you seen shortly after our one month follow up visit. When to Get Medical and Emergency Help: ??? If you have a temperature over 101.0??F ??? If your pain is not controlled ??? Your nausea is so severe you cannot keep down any food or fluids ??? You have questions about your treatment or new prescriptions ??? You have pain where the catheter was placed that is worsening more than improving ??? You have any other symptoms you are concerned about Go to your nearest Emergency Room: ??? Your catheter site starts bleeding and will not stop after 10 minutes of firm pressure ??? You have shaking chills or a temperature over 102??F ?? IF YOU HAVE ANY QUESTIONS OR CONCERNS REGARDING THE PROCEDURE, PLEASE CALL THE [facility] INTERVENTIONAL RADIOLOGY AT . SOMEONE IS AVAILABLE TO TAKE YOUR CALL 24 HOURS A DAY. documented in this encounter Medications at Time [...] mouth every 12 hours. 60 Tablet 3 03/31/2022 04/09/2022 gabapentin (NEURONTIN) 100 mg capsule Take 2 Caps by mouth 2 times daily. 360 Cap 3 08/16/2012 12/14/2023 ibuprofen (MOTRIN) 200 mg tablet Take 2 Tablets by mouth as needed. 12/07/2023 mv-mn/C/glutamin/lysin/h [id number] (AIRBORNE, ASCORBATE SODIUM, ORAL) Take by mouth [...] Dispensed Refills Start Date End Da te ondansetron (ZOFRAN-ODT) 8 mg disintegrating tablet Take 1 Tablet by mouth every 8 hours as needed for Nausea. 15 Tablet 04/08/2022 05/27/2022 ondansetron (ZOFRAN-ODT) 8 mg disintegrating tablet Take 1 Tablet by mouth every 8 hours as needed for Nausea. 15 Tablet 04/08/2022 04/08/2022 oxyCODONE (ROXICODONE) 5 mg immediate release tablet Take 1 Tablet by mouth every 4 hours as needed for Pain. Daily Max: 30 mg 9 Tablet 04/08/2022 05/27/2022 documented in this encounter Discharge Disposition Disposition Code Departure Means Destination Home or Self Care documented in this encounter Progress Notes * Quita Garcia RN - 04/08/2022 0730 EDT Procedure: Y90 Infusion Patient received from CVU to IR 24 at 0910. Consent and patient name/ verified using armband andverbally. Patient is alert and oriented x 4, able to follow commands with all extremities, able to make needs known, pulses palpable. No complaints of pain. Patient's allergies, medications, lab results, and eligibility for IV moderate sedation reviewed. The patient is eligible for IV moderate sedation, IV site checked for patency. Patient educated on procedure and sedation side effects explained, patient verbalized understanding. Patient in supine position on table, safety straps in place. VS assessed. Dr. Moya present in the room prior to conscious sedation initiation, conscious sedation started.Patient monitored throughout procedure. Sterile prep of left wrist and bilateral groin with duraprep by ADN in the usual sterile fashion incompliance with manufacturers recommendation. Access: Ultrasound guidance utilized to access left radial artery, access confirmed under fluoro, 5Fr. arterial sheath placed, radial access cocktail administered intra-arterially by Dr. Moya, 2.5 mg of IA Verapamil, 200 mcg of IA Nitro, 3000 units of IA Heparin; fluoro continued. Imaging/Intervention: Y90 particles infused into the vessel per manufacturing instructions and under the guidance of the Radiology physicist. Closure: 5 Fr sheath removed, TR Band compression device placed at 1040 and inflated with 15 mLs ofair, homeostasis achieved. Puncture site is clean/dry. Procedure completed by Dr. Chin with Dr. Moya as supervising provider. Procedure well tolerated by patient, vital signs stable. Medication administration IV Versed 2.5 mg IV Fentanyl 75 mcg IV Zofran 4 mg IA Verapamil 2.5 mg IA Nitro 700 mcg IA Heparin 3000 units Additional medications: 500 mcg of subcutaneous nitro for anesthetic Sedation time with Dr. Moya: 55 minutes Follow up: Please release sign & held post procedure orders. Begin to remove 3 mLs of air every15 minutes from the TR Band at 1140. Discharge instructions placed in the patient's chart. Report given to CVU RN. Discharge instructions to be reviewed with the patient by the discharging RN. Patient transferred in stable condition. * Sendy Amezquita RN - 04/08/2022729 EDT Sunshine Subramanian arrived to the Cardiovascular Unit via ambulation. Patient alert and oriented x3. Transfers to stretcher independently. Patient stretcher in low position with side rails up & call pak within patient reach. Patient's is at bedside. Patient's discharge plan is homewith her . Have you had any of the following symptoms? Fever YES/NO: No Cough/Chest congestion/Difficulty breathing YES/NO: No Sore throat or loss of taste / smell?YES/NO: No Chills YES/NO: No Joint Pain or weakness YES/NO: No Vomiting, abdominal pain, diarrhea (more common in children) YES/NO: No Severe headache YES/NO: No New loss of taste or smell YES/NO: No See admission vital signs assessment for temperature. * Kiera Barron RN - 04/08/2022729 EDT Patient arrived to CVU #3 via stretcher s/p Y-90 Infusion. LRA access site w/ TR band in place. Site with hematoma present from prior procedure (y-90 mapping 04/07/22).Otherwise +CSMTs. Alert and oriented x3. VSS on RA. Reports abd post procedure. MD Chin aware. Meds per MAR for pain. Tolerating PO intake. Orthos complete. Tolerating ambulation. Denies SOB, nausea, lightheadedness or dizziness. Pt reports improvement in pain s/p oxycodone x1. 1200- MD Chin at bedside to assess patient. 1441- Dr. Moya at bedside. AVS reviewed. IV removed. Patient discharged from CVU via WC with . documented in this encounter H&P Notes * Ingris Chin DO - 04/08/2022 6730 EDT The preoperative history and physical which was performed within 30 days of this procedure has been reviewed and the clinically appropriate elements of the physical examination have been repeated. There are no changes to the documented history and physical or if so such changes are documented below 61 y.o. woman with metastatic breast cancer presents for Right lobar Y90 treatment. Physical Exam General: AAOx3, NAD CV: RRR Resp: CTAB Extremities: warm, well perfused Plan: Proceed with procedure as planned. Ingris Chin DO 04/08/2022 8:41 Source Note - Augustina Colin MD PhD - 03/18/2022 15:30 EDT REASON FOR OFFICE VISIT: ??Discussion of [...] of ER+ DCIS. a. ??Ultrasound performed in [place]??identifying an irregular heterogeneous soft tissue mass measuring 1.2 x 1.2 x 1.5 cm. ?? 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 ??HER-2 1+ by IHC. ??ANNE MARIE revealed [...] breast tumor 07/07/17 and placement of tissue globe mounter. ??1.9 cm tumor at time of surgery, well differentiated, with LVI present, and negative margins. G. Biopsy left cervical LN 02/11/20 - consistent with metastatic adenocarcinoma consistent with breast primary H. Fulvestrant initiated 03/06/20; abemaciclib initiated 03/31/20 discontinued 06/01 due to diarrhea; palbociclib initiated March 2021 I. Capecitabine initiated December 2021 2. ??Restaging scans: ?? - MRI Abdomen 02/25/22: Decrease in size of hepatic lesions - Nuclear bone scan 03/02/22: Findings are concerning for progression of metastatic disease with increased radiotracer uptake in the right iliac bone as well as new areas of increased radiotracer uptake in the left scapula as well as left ischial tuberosity. Increased radiotracer uptake in the left posterior ninth rib compared to November 2021 most likely related to a healing pathologic fracture. - CT Chest 11/26/21 - Stable to minimally decreased size of a solitary left upper lobe nodule since the most recent comparison study, etiology uncertain. This finding has been present since at least 10/30/2018; Stable mildly enlarged right internal mammary lymph node. - Nuclear Bone scan 03/14/22: Concerning for progression of metastatic disease with increased radiotracer uptake in the right iliac bone as well as new areas of increased radiotracer uptake in the left scapula and left ischial tuberosity. Increased radiotracer uptake in the left posterior ninth rib compared to November 2021 most likely related to a healing pathologic fracture 3. 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 She iscurrently taking it 1 week on 1 week off. She has had hand- foot symptoms. Switching form one week on and one week off has helped. She met with Dr. Moya earlier this week. She plans to proceed withablation which will be end of March. ROS: A 10 point review of systems [...] 3 Tablets by mouth every 12 hours. 1week on 1 week off. ??? gabapentin (NEURONTIN) 100 mg capsule Take 2 Caps by mouth 2 times daily. (Patient taking differently: Take 600 mg by mouth 2 times daily. Takes 300 mg qam and pm and 600 mg qhs) ??? ibuprofen (MOTRIN) 200 mg tablet Take 400 mg by mouth as needed. ??? MULTIVITS W-CA,FE,OTHER MIN (WOMEN'S DAILY FORMULA ORAL) Take by mouth daily. ??? mv-mn/C/glutamin/lysin/kwkr770 (AIRBORNE, ASCORBATE SODIUM, ORAL) Take by mouth as needed. ??? omeprazole (PRILOSEC) 20 mg capsule Take 20 mg by mouth daily. ??? palbociclib 100 mg capsule Take 100 mg by mouth daily. Take 100 mg daily days 1-21 and then 7 days off. Total cycle length 28 days before restarting. ??? RED YEAST RICE EXTRACT ORAL Take 1,200 mg by mouth daily. 600mg 2x a day ??? valACYclovir (VALTREX) 500 mg tablet Take 1 Tab by mouth daily. ??? venlafaxine (EFFEXOR-XR) 150 mg XR capsule Take 1 Cap by mouth daily. No facility-administered medications prior to visit. Social History Tobacco Use ??? Smoking status: Never Smoker ??? Smokeless tobacco: Never Used Substance Use Topics ??? Alcohol use: Not Currently Alcohol/week: 1.0 - 3.0 standard drink Types: 1 - 3 Glasses of wine per week Presents the clinic with her partner. She continues to be active. Objective: There were no vitals taken for this visit. Estimated body mass index is 24.56 kg/m?? as calculated from the following: Height as of 01/08/22: 154.9 cm (61). Weight as of 01/08/22: 59 kg (130 lb). ECOG Performance Status: 0 General: Comfortable, cooperative and in no apparent distress NEURO: Alert and oriented x 3; Grossly neurologically intact DIAGNOSTIC DATA No visits with results within 1 Day(s) from this visit. Latest known visit with results is: Phlebotomy Only on 02/25/2022 Component Date Value Ref Range Status ??? WBC 02/25/2022 7.09 4.00 - 12.40 K/cmm Final ??? RBC 02/25/2022 3.76 (A) 3.86 - 5.04 M/cmm Final ??? Hemoglobin 02/25/2022 14.2 11.6 - 15.2 gm/dL Final ??? HCT 02/25/2022 40.7 34.9 - 44.4 % Final ??? MCV 02/25/2022 108 (A) 81 - 98 fl Final ??? MCH 02/25/2022 37.8 (A) 26.7 - 33.3 pg Final ??? MCHC 02/25/2022 34.9 32.1 - 35.9 gm/dL Final ? ? RDW-CV 02/25/2022 13.1 <14.7 % Final ? ? RDW-SD 02/25/2022 52.9 (A) <50.4 fl Final ??? PLT 02/25/2022 208 141 - 377 K/cmm Final ??? MPV 02/25/2022 9.7 9.5 - 12.7 fl Final ??? Neutrophils 02/25/2022 51.7 % Final ??? Lymphocytes 02/25/2022 36.4 % Final ??? Monocytes 02/25/2022 10.0 % Final ??? Eosinophils 02/25/2022 1.4 % Final ??? Basophils 02/25/2022 0.4 % Final ??? Immature Grans 02/25/2022 0.1 % Final ??? Absolute Neutrophils 02/25/2022 3.66 2.20 - 8.85 K/cmm Final ??? Absolute Lymphocytes 02/25/2022 2.58 1.09 - 3.30 K/cmm Final ??? Absolute Monocytes 02/25/2022 0.71 0.10 - 0.80 K/cmm Final ??? Absolute Eosinophils 02/25/2022 0.10 0.03 - 0.61 K/cmm Final ??? Absolute Basophils 02/25/2022 0.03 0.01 - 0.11 K/cmm Final ??? Absolute Immature Grans 02/25/2022 0.01 0.00 - 0.06 K/cmm Final ??? Type of Differential: 02/25/2022 Auto Final ??? Sodium 02/25/2022 145 136 - 145 mmol/L Final ??? Potassium 02/25/2022 5.2 (A) 3.5 - 5.0 mmol/L Final ??? Chloride 02/25/2022 103 96 - 110 mmol/L Final ??? CO2 Total 02/25/2022 34 (A) 22 - 32 mmol/L Final ??? Glucose 02/25/2022 95 70 - 100 mg/dL Final ??? BUN 02/25/2022 21 10 - 26 mg/dL Final ??? Creatinine 02/25/2022 0.74 0.52 - 1.04 mg/dL Final ? ? eGFR 02/25/2022 93 >60 mL/min/1.73m2 Final ??? Total Protein 02/25/2022 6.9 6.3 - 8.2 g/dL Final ??? Albumin 02/25/2022 4.2 3.4 - 4.9 g/dL Final ??? Alkaline Phosphatase 02/25/2022 78 38 - 126 U/L Final ??? AST 02/25/2022 51 (A) 15 - 46 U/L Final ? ? ALT 02/25/2022 39 (A) <35 U/L Final ? ? Bilirubin, Total 02/25/2022 0.5 <1.4 mg/dL Final ??? Calcium 02/25/2022 9.9 8.5 - 10.5 mg/dL Final ??? Albumin/Globulin Ratio 02/25/2022 1.6 1.0 - 2.5 Final ??? Anion Gap 02/25/2022 8 5 - 14 Final ? ? CA 27.29 02/25/2022 120.7 (A) <38.0 U/mL Final NOTE: Serum CA 27.29 concentration should not be interpreted as absolute evidence for the presence or absence of malignant disease. Assayed on Siemens MinteosIA Centaur XPT using chemiluminescent technology. ??Values obtained by using different assay methods cannot be used interchangeably. ??? 25OH Vitamin D Tot 02/25/2022 65 30 - 100 ng/mL Final Vitamin D 25,OH Interpretive Ranges: Deficiency: <10.0 ng/mL Insufficiency: 10.0 - 30.0 ng/mL Sufficiency: 30.0 - 100.0 ng/mL Toxicity: >100.0 ng/mL ASSESSMENT: ??Ms Bernstein is a 61-year-old female with metastatic breast cancer.?? She had been currently receiving fluvesterant and palbociclb. The MR of the abdomen indicates progression of liver lesions. She has been on capecitabine for approximatley 3 months. Currently Capecitabine 1500mg am and 1500mg pm 1 week on 1 week off. She still has significant hand issues with cracking and burning. We will hold capecitabine until after liver ablation with Dr Moya. Zolendronic acid to every 3 mos for now. She takes a vitamin D supplement. PLAN: 1. Hold Capecitabine for now; Will likely restart 1000mg am and 1000mg pm 1week on 1 week off the week of Apr 26. 2. Zoledronic acid q 3mo, next due end of May 2022; Continued Vit D supplementation 3. Follow up on Foundation One testing 4. Liver ablation with Dr Moya 5. Consider restating scans in June TELEMEDICINE VIDEO VISIT Today's visit was provided [...] [facility] Interventional Radiology Unit [address] [place] [phone] 04/02/2024 15:15 EDT Office Visit [facility] Surgical Oncology - [address] [id number] Adolfo Carreno MD 111 [facility], Level [address] [place] [phone] 04/05/2024 9:30 EDT Telemedicine [facility] - [facility] Palliative Care Services [address] [place], [place] [phone] Chichi Woods MD 111 [facility], [address] [phone] 04/11/2024 15:00 EDT Telemedicine [facility] Hematology & Oncology - [facility] [address] [place], [place] 119591 Alisson Carreon MD [address] [place] [address], [facility] 2 [place] [phone] 04/13/2024 13:30 EDT Appointment [facility] Hematology & Oncology - [address] [phone] 04/13/2024 14:00 EDT Appointment [facility] Hematology & Oncology - [address] [phone] 04/16/2024 10:00 EST Telemedicine [facility] - [facility] Palliative Care Services [address] [place] [address] [id number] Chichi Woods MD [address] [place] [phone] 04/24/2024 9:00 EST Appointment [facility] Radiology CT Outpatient - [address] [id number] 04/24/2024 11:00 EST Appointment [facility] Breast Imaging - [facility] [address] [id number] 04/27/2024 12:00 EST Appointment [facility] Hematology & Oncology - [address] [id number] 05/02/2024 15:00 EST Telemedicine [facility] Hematology & Oncology - [address] [phone] Alisson Carreon MD [address] [place] [address], [facility] [address] [place] [phone] 05/04/2024 10:15 EST Ancillary Procedure [facility] Cardiology - [address] [place], [place] [phone] 05/04/2024 11:30 EST Appointment [facility] Hematology & Oncology [address] [id number] 05/04/2024 12:00 EST Appointment [facility] Hematology & Oncology [address] [phone] 06/12/2024 13:00 EST Appointment [facility] Radiology CT - [address] [id number] documented as of this encounter Procedures Procedure Name Priority Date/Time Associated Diagnosis Comments IR EMBOLIZATION Routine 04/08/2022 11:05 EDT Liver metastasis (HCC-CMS) (HCC) (HCC-CMS) documented in this encounter Results * IR EMBOLIZATION (05/14/2022 10:34 EST) Anatomical Region Laterality Modality N/A X-Ray Angiograph y 05/16/2022 13:0 3 EST Impressions 05/16/2022 13:03 EST 1. Successful transarterial radioembolization to the left lobe of the liver. Narrative 05/16/2022 13:03 EST TRANSARTERIAL RADIOEMBOLIZATION OF THE LIVER. HISTORY: Breast cancer, liver metastases. TECHNIQUE: Informed consent was obtained after the risks and benefits of the procedure were discussed with the patient. The specific risks of this procedure which were discussed include but were not limited to bleeding, infection, vascular injury, nontarget embolization, allergic reaction, kidney damage from contrast, and liver failure. A procedural time out was performed prior to the procedure, where the procedure, site, and patient identification was confirmed by all healthcare providers present in the room. Moderate sedation was provided with intravenous Versed and fentanyl while continuously monitoring the patient's blood pressure, heart rate, respiratory rate, and pulse oxygenation. Preprocedure Barbeau test of the left wrist was performed, demonstrating Barbeau type B plethysmography. Prior to the procedure, EMLA and nitroglycerin paste were applied to the patient's wrist. The patient was positioned supine on the angiographic table with left arm by his side. Sonographic evaluation of the left radial artery was performed, demonstrating it to be patent and of suitable caliber for radial access. A permanent image was stored. The skin and subcutaneous tissues were anesthetized with a mixture of 1% lidocaine and nitroglycerin. The left radial artery was accessed with a 21-gauge micropuncture needle under ultrasound guidance. A microwire was advanced and intraluminal positioning was confirmed with ultrasound. The needle was exchanged for a 5 Portuguese slender sheath. Anti-spasmodic solution of 2.5 mg of verapamil, 3000 units of heparin, and 200 mcg of nitroglycerin was admixed with blood and administered via the sheath side-port over the course of one minute. A 1.5J Glidewire was preloaded into a catheter and the system was advanced through the descending thoracic aorta to the abdominal aorta. A 5 Portuguese DwellAware catheter was advanced over a wire into the celiac artery where angiography was performed. This revealed an unremarkable appearing celiac artery. Through this base catheter, a prograde microcatheter was advanced over a wire into the left hepatic artery where angiography was performed. This revealed an unremarkable appearing left hepatic artery. The catheter was positioned in the identical location to the catheter position on mapping angiogram one day prior. Through the microcatheter, resin Y 90 microspheres were administered (Sir spheres). All sheaths, wires, and catheters were then removed and local hemostasis was obtained by TR band. There were no immediate post procedure complications. The patient's radiation dose was calculated using information from previous MRI and/or CT scans, angiographic findings from prior arterial mapping, Tc-99m MAA injection and subsequent SPECT-CT, and three-dimensional liver volumetric calculations. Delivery Device: Sir spheres. Injection Site: Left hepatic artery. Duration: Permanent. Total Activity Delivered: 0.64 GBq (Gigabecquerel). Delivered Minimal Tumor Dose: 100 Gy (Ross). Activity to Lung 0.09 Gy. Dose Delivery utilizing approved injection device was performed by Authorized User David Moya M.D. Procedure Note Griffin, David Rowley MD - 05/16/2022 TRANSARTERIAL RADIOEMBOLIZATION OF THE LIVER. HISTORY: Breast cancer, liver metastases. TECHNIQUE: Informed consent was obtained after the risks and benefits ofthe procedure were discussed with the patient. The specific risks of thisprocedure which were discussed include but were not limited to bleeding,infection, vascular injury, nontarget embolization, allergic reaction,kidney damage from contrast, and liver failure. A procedural time outwas performed prior to the procedure, where the procedure, site, andpatient identification was confirmed by all healthcare providers presentin the room. Moderate sedation was provided with intravenous Versed andfentanyl while continuously monitoring the patient's blood pressure, heartrate, respiratory rate, and pulse oxygenation. Preprocedure Barbeau test of the left wrist was performed, demonstratingBarbeau type B plethysmography. Prior to the procedure, EMLA andnitroglycerin paste were applied to the patient's wrist. The patient waspositioned supine on the angiographic table with left arm by his side.Sonographic evaluation of the left radial artery was performed,demonstrating it to be patent and of suitable caliber for radial access. Apermanent image was stored. The skin and subcutaneous tissues wereanesthetized with a mixture of 1% lidocaine and nitroglycerin. The leftradial artery was accessed with a 21-gauge micropuncture needle underultrasound guidance. A microwire was advanced and intraluminal positioningwas confirmed with ultrasound. The needle was exchanged for a 5 Frenchslender sheath. Anti-spasmodic solution of 2.5 mg of verapamil, 3000 unitsof heparin, and 200 mcg of nitroglycerin was admixed with blood andadministered via the sheath side-port over the course of one minute. A1.5J Glidewire was preloaded into a catheter and the system was advancedthrough the descending thoracic aorta to the abdominal aorta. A 5 Portuguese DwellAware catheter was advanced over a wire into the celiac arterywhere angiography was performed. This revealed an unremarkable appearingceliac artery. Through this base catheter, a prograde microcatheter wasadvanced over a wire into the left hepatic artery where angiography wasperformed. This revealed an unremarkable appearing left hepatic artery.The catheter was positioned in the identical location to the catheterposition on mapping angiogram one day prior. Through the microcatheter,resin Y 90 microspheres were administered (Sir spheres). All sheaths, wires, and catheters were then removed and local hemostasiswas obtained by ALEXX vu. There were no immediate post procedurecomplications. The patient's radiation dose was calculated using information fromprevious MRI and/or CT scans, angiographic findings from prior arterialmapping, Tc-99m MAA injection and subsequent SPECT-CT, andthree-dimensional liver volumetric calculations. Delivery Device: Sir spheres. Injection Site: Left hepatic artery. Duration: Permanent. Total Activity Delivered: 0.64 GBq (Gigabecquerel). Delivered Minimal Tumor Dose: 100 Gy (Ross). Activity to Lung 0.09 Gy. Dose Delivery utilizing approved injection device was performed byAuthorized User David Moya M.D. IMPRESSION 1. Successful transarterial radioembolization to the left lobe of theliver. Ingris E Chin [facility] * IR EMBOLIZATION (05/13/2022 10:26 EST) Anatomical Region Laterality Modality N/A X-Ray Angiograph y 05/14/2022 15:4 3 EST Impressions 05/14/2022 15:43 EST 1. Successful mesenteric angiography as part of mapping. Narrative 05/14/2022 15:43 EST MESENTERIC ANGIOGRAM PART OF Y 90 MAPPING HISTORY: Breast cancer, liver metastases. TECHNIQUE: Informed consent was obtained after the risks and benefits of the procedure were discussed with the patient. The specific risks of this procedure which were discussed include but were not limited to bleeding, infection, vascular injury, allergic reaction, and kidney damage from contrast. A procedural time out was performed prior to the procedure, where the procedure, site, and patient identification was confirmed by all healthcare providers present in the room. Moderate sedation was provided with intravenous Versed and fentanyl while continuously monitoring the patient's blood pressure, heart rate, respiratory rate, and pulse oxygenation. Preprocedure Barbeau test of the left wrist was performed, demonstrating Barbeau type B plethysmography. Prior to the procedure, EMLA and nitroglycerin paste were applied to the patient's wrist. The patient was positioned supine on the angiographic table with left arm by his side. Sonographic evaluation of the left radial artery was performed, demonstrating it to be patent and of suitable caliber for radial access. A permanent image was stored. The skin and subcutaneous tissues were anesthetized with a mixture of 1% lidocaine and nitroglycerin. The left radial artery was accessed with a 21-gauge micropuncture needle under ultrasound guidance. A microwire was advanced and intraluminal positioning was confirmed with ultrasound. The needle was exchanged for a 5 Portuguese slender sheath. Anti-spasmodic solution of 2.5 mg of verapamil, 3000 units of heparin, and 200 mcg of nitroglycerin was admixed with blood and administered via the sheath side-port over the course of one minute. A 1.5J Glidewire was preloaded into a catheter and the system was advanced through the descending thoracic aorta to the abdominal aorta. A 5 Portuguese Kaylah catheter was advanced over a wire into the celiac artery where angiography was performed. This revealed normal branching pattern of the celiac artery. The origin of the right gastric artery is at the proximal gastroduodenal artery. Through the base catheter, a prograde microcatheter was advanced over a wire into the common hepatic artery where angiography was performed. This confirmed the location of the right gastric artery from the proximal gastroduodenal artery. Over a wire, the prograde microcatheter was advanced into the left hepatic artery where angiography was performed. This revealed no extrahepatic opacification. There was some vasospasm in the proximal left hepatic artery. Intra-arterial nitroglycerin was administered. Repeat angiogram was performed revealing improvement in vasospasm. From this microcatheter position, Cone beam CT was performed. This revealed adequate position to the microcatheter, with opacification of the entire left lobe. No extrahepatic opacification was seen. From this microcatheter position, technetium 99m MAA was administered. All sheaths, wires, and catheters were then removed and local hemostasis was obtained by TR band. There were no immediate post procedure complications. Procedure Note Scrlorraine, David Rowley MD - 05/14/2022 MESENTERIC ANGIOGRAM PART OF Y 90 MAPPING HISTORY: Breast cancer, liver metastases. TECHNIQUE: Informed consent was obtained after the risks and benefits ofthe procedure were discussed with the patient. The specific risks of thisprocedure which were discussed include but were not limited to bleeding,infection, vascular injury, allergic reaction, and kidney damage fromcontrast. A procedural time out was performed prior to the procedure,where the procedure, site, and patient identification was confirmed by allhealthcare providers present in the room. Moderate sedation was providedwith intravenous Versed and fentanyl while continuously monitoring thepatient's blood pressure, heart rate, respiratory rate, and pulseoxygenation. Preprocedure Barbeau test of the left wrist was performed, demonstratingBarbeau type B plethysmography. Prior to the procedure, EMLA andnitroglycerin paste were applied to the patient's wrist. The patient waspositioned supine on the angiographic table with left arm by his side.Sonographic evaluation of the left radial artery was performed,demonstrating it to be patent and of suitable caliber for radial access. Apermanent image was stored. The skin and subcutaneous tissues wereanesthetized with a mixture of 1% lidocaine and nitroglycerin. The leftradial artery was accessed with a 21-gauge micropuncture needle underultrasound guidance. A microwire was advanced and intraluminal positioningwas confirmed with ultrasound. The needle was exchanged for a 5 Frenchslender sheath. Anti-spasmodic solution of 2.5 mg of verapamil, 3000 unitsof heparin, and 200 mcg of nitroglycerin was admixed with blood andadministered via the sheath side-port over the course of one minute. A1.5J Glidewire was preloaded into a catheter and the system was advancedthrough the descending thoracic aorta to the abdominal aorta. A 5 Portuguese Kaylah catheter was advanced over a wire into the celiac arterywhere angiography was performed. This revealed normal branching pattern ofthe celiac artery. The origin of the right gastric artery is at theproximal gastroduodenal artery. Through the base catheter, a progrademicrocatheter was advanced over a wire into the common hepatic arterywhere angiography was performed. This confirmed the location of the rightgastric artery from the proximal gastroduodenal artery. Over a wire, theprograde microcatheter was advanced into the left hepatic artery whereangiography was performed. This revealed no extrahepatic opacification.There was some vasospasm in the proximal left hepatic artery.Intra-arterial nitroglycerin was administered. Repeat angiogram wasperformed revealing improvement in vasospasm. From this microcatheterposition, Cone beam CT was performed. This revealed adequate position tothe microcatheter, with opacification of the entire left lobe. Noextrahepatic opacification was seen. From this microcatheter position, technetium 99mMAA was administered. All sheaths, wires, and catheters were then removed and local hemostasiswas obtained by TR band. There were no immediate post procedurecomplications. IMPRESSION 1. Successful mesenteric angiography as part of mapping. Ingris Chin DO [facility] * IR EMBOLIZATION (04/08/2022 11:05 EDT) Anatomical Region Laterality Modality N/A X-Ray Angiograph y 04/09/2022 8:25 EDT Impressions 04/09/2022 8:25 EDT Technically successful transarterial radioembolization of the right hepatic lobe liver lesion. Dr. David Moya was present for and supervised the entire procedure. I have personally reviewed the images and the above interpretation and agree with the findings. Narrative 04/09/2022 8:25 EDT YTTRIUM-90 RADIOEMBOLIZATION OF RIGHT HEPATIC LOBE 04/08/2022 7:30 AM Comparisons: Mesenteric angiogram 04/07/2022 Patient: SUNSHINE SUBRAMANIAN Attending physician(s): Dr. David Moya Fellow physician(s): Dr. Ingris Chin Resident physician(s): None Advanced practice provider(s): None Preprocedure diagnosis: Metastatic breast cancer Postprocedure diagnosis: Same Indication: Locoregional therapy for tumor control Procedure Summary: - Left radial arterial access with ultrasound guidance - Visceral angiography: Celiac angiography - Superselective hepatic angiography: Performed as described below - Yttruim-90 Radioembolization as described below - Additional procedure(s): None Anesthesia: Conscious sedation with midazolam and fentanyl, performed by independent trained observer under attending supervision with continuous monitoring of the patient's level of consciousness and physiologic status, including heart rate, blood pressure, respiratory rate, and oxygen saturation. Additional Medications: Local lidocaine; Anti-spasmodic solution of 2.5 mg of verapamil, 3000 units of heparin, and 200 mcg of nitroglycerin; ciprofloxacin 400 mg IV; Solu-Cortef 100 mg IV Access: 5F slender sheath Left radial artery Hemostasis: TR Band Narrative: Informed consent for the procedure (including risks, benefits, and alternatives) was obtained and a time-out was performed prior to the procedure. The site was prepared and draped using all elements of maximal sterile barrier technique including sterile gloves, sterile gown, cap, mask, large sterile sheet, sterile ultrasound probe cover, hand hygiene, and cutaneous antisepsis. A time out was performed, with documentation of two patient identifiers, the correct procedure, and the correct site. Preprocedure Barbeau test of the left wrist was performed, demonstrating Barbeau type B plethysmography. The patient was positioned supine on the angiographic table with left arm externally rotated. Sonographic evaluation of the left radial artery was performed, demonstrating it to be patent and of suitable caliber for radial access. A permanent image was stored. The skin was anesthetized with a mixture of 1% lidocaine and nitroglycerin. The left radial artery was accessed with a 21-gauge micropuncture needle under ultrasound guidance. A microwire was advanced and intraluminal positioning was confirmed with ultrasound. The needle was exchanged for a 5 Portuguese slender sheath. Anti-spasmodic solution of 2.5 mg of verapamil, 3000 units of heparin, and 200 mcg of nitroglycerin was admixed with blood and administered via the sheath side-port over the course of one minute. A 1.5J Glidewire was preloaded into a DwellAware radial catheter and the system was advanced through the descending thoracic aorta to the abdominal aorta. The wire was retracted and the catheter was utilized to select the celiac artery. Angiogram of the celiac artery demonstrated patent branches. The Progreat microcatheter and microwire were used to select the right hepatic artery (third order selection). Angiography was performed, demonstrating patent branching vessels. From this microcatheter position, radioembolization was performed using resin microspheres (SIR-spheres). Intermittent contrast injection confirmed patency and antegrade flow in the selected arterial vascular distribution. The catheters were removed. A TR band was applied to the left wrist, the sheath was removed, and patent hemostasis was achieved with 15 mL of air via the TR band. The patient tolerated the procedure well. There were no immediate complications. Estimated blood loss (mL): Trace Contrast Contrast agent: Omnipaque 350 Contrast volume (mL): 30 Radiation Dose Fluoroscopy time (minutes): 9.4 ?? Reference air kerma (mGy): 220.94 The patient's radiation dose was calculated using information from previous MRI and/or CT scans, angiographic findings from prior arterial mapping, Tc-99m MAA injection and subsequent SPECT-CT, and three-dimensional liver volumetric calculations. Delivery Device: Resin microspheres (SIR-spheres). Injection Site: Right hepatic artery. Duration: Permanent. Total Activity Delivered: 0.87 GBq (Gigabecquerel). Delivered Minimal Tumor Dose: 96.8 Gy (Ross). Activity to Lung 0.011 Gy (Ross). Dose Delivery utilizing approved injection device was performed by Authorized User David Moya M.D. Procedure Note David Moya MD - 04/09/2022 YTTRIUM-90 RADIOEMBOLIZATION OF RIGHT HEPATIC LOBE 04/08/2022 7:30 AM Comparisons: Mesenteric angiogram 04/07/2022 Patient: SUNSHINE SUBRAMANIAN Attending physician(s): Dr. David Moya Fellow physician(s): Dr. Ingris Chin Resident physician(s): None Advanced practice provider(s): None Preprocedure diagnosis: Metastatic breast cancer Postprocedure diagnosis: Same Indication: Locoregional therapy for tumor control Procedure Summary: - Left radial arterial access with ultrasound guidance - Visceral angiography: Celiac angiography - Superselective hepatic angiography: Performed as described below - Yttruim-90 Radioembolization as described below - Additional procedure(s): None Anesthesia: Conscious sedation with midazolam and fentanyl, performed byindependent trained observer under attending supervision with continuousmonitoring of the patient's level of consciousness and physiologic status,including heart rate, blood pressure, respiratory rate, and oxygensaturation. Additional Medications: Local lidocaine; Anti-spasmodic solution of 2.5 mgof verapamil, 3000 units of heparin, and 200 mcg of nitroglycerin;ciprofloxacin 400 mg IV; Solu-Cortef 100 mg IV Access: 5F slender sheath Left radial artery Hemostasis: TR Band Narrative: Informed consent for the procedure (including risks, benefits, andalternatives) was obtained and a time-out was performed prior to theprocedure. The site was prepared and draped using all elements of maximalsterile barrier technique including sterile gloves, sterile gown, cap,mask, large sterile sheet, sterile ultrasound probe cover, hand hygiene,and cutaneous antisepsis. A time out was performed, with documentation oftwo patient identifiers, the correct procedure, and the correct site. Preprocedure Barbeau test of the left wrist was performed, demonstratingBarbeau type B plethysmography. The patient was positioned supine on theangiographic table with left arm externally rotated. Sonographicevaluation of the left radial artery was performed, demonstrating it to bepatent and of suitable caliber for radial access. A permanent image wasstored. The skin was anesthetized with a mixture of 1% lidocaine andnitroglycerin. The left radial artery was accessed with a 21- gaugemicropuncture needle under ultrasound guidance. A microwire was advancedand intraluminal positioning was confirmed with ultrasound. The needle wasexchanged for a 5 Portuguese slender sheath. Anti-spasmodic solution of 2.5 mgof verapamil, 3000 units of heparin, and 200 mcg of nitroglycerin wasadmixed with blood and administered via the sheath side-port over thecourse of one minute. A 1.5J Glidewire was preloaded into a Kaylah radialcatheter and the system was advanced through the descending thoracic aorta to the abdominal aorta. The wire was retracted and the catheter was utilized to select the celiacartery. Angiogram of the celiac artery demonstrated patent branches. TheProgreat microcatheter and microwire were used to select the right hepaticartery (third order selection). Angiography was performed, demonstratingpatent branching vessels. From this microcatheter position,radioembolization was performed using resin microspheres (SIR-spheres).Intermittent contrast injection confirmed patency and antegrade flow inthe selected arterial vascular distribution. The catheters were removed. A TR band was applied to the left wrist, thesheath was removed, and patent hemostasis was achieved with 15 mL of airvia the TR band. The patient tolerated the procedure well. There were noimmediate complications. Estimated blood loss (mL): Trace Contrast Contrast agent: Omnipaque 350 Contrast volume (mL): 30 Radiation Dose Fluoroscopy time (minutes): 9.4 Reference air kerma (mGy): 220.94 The patient's radiation dose was calculated using information fromprevious MRI and/or CT scans, angiographic findings from prior arterialmapping, Tc-99m MAA injection and subsequent SPECT-CT, andthree-dimensional liver volumetric calculations. Delivery Device: Resin microspheres (SIR-spheres). Injection Site: Right hepatic artery. Duration: Permanent. Total Activity Delivered: 0.87 GBq (Gigabecquerel). Delivered Minimal Tumor Dose: 96.8 Gy (Ross). Activity to Lung 0.011 Gy (Ross). Dose Delivery utilizing approved injection device was performed byAuthorized User David Moya M.D. IMPRESSION Technically successful transarterial radioembolization of the righthepatic lobe liver lesion. Dr. David Moya was present for and supervised the entireprocedure. I have personally reviewed the images and the above interpretation andagree with the findings. David Moya MD IMG IR ORDER ANUSHA documented in this encounter Visit Diagnoses Diagnosis Liver metastasis Secondary malignant neoplasm of liver Liver metastasis Secondary malignant neoplasm of liver Malignant neoplasm of right female breast, unspecified estrogen receptor status, unspecified site of breast (HCC-CMS) Liver metastasis Secondary malignant neoplasm of liver Malignant neoplasm of right female breast, unspecified estrogen receptor status, unspecified site of breast (HCC-CMS) documented in this encounter Administered Medications Inactive Administered Medications - up to 3 most recent administrations Medication Order MAR Action Action Date Dose Rate Site ciprofloxacin (CIPRO) IVPB 400 mg 400 mg, intravenous, Administer over 60 Minutes, EVERY 12 HOURS, 1 dose, First dose on Michelle 04/08/22 at 0900, Controlled antibiotic: has ID approved? No: Pre-operative surgical prophylaxis, Type of Therapy: Prophylaxis, Suspected Indication (Select all that apply): Other, Other Indication: surgery, ID Consult: No, Routine Given 04/08/2022 8:36 EDT 400 mg fentaNYL citrate (PF) injection 25-250 mcg 25-250 mcg, intravenous, ONCE PRN, 1 dose, Starting on Michelle 04/08/22 at 0823, Until Michelle 04/08/22 at 1028, Other, Radiology Procedure, Routine, Preprocedure Given 04/08/2022 10:28 EDT 75 mcg heparin 1,000 unit/mL injection 3,000 Units 3,000 Units, intravenous, NOW X1, 1 dose, On Michelle 04/08/22 at 0900, Routine Given 04/08/2022 9:43 EDT 3,000 Units hydrocortisone sodium succinate (PF) (SOLU-CORTEF) injection PRN, Starting on Michelle 04/08/22 at 0930, Until Michelle 04/08/22 at 0930, Routine Given 04/08/2022 9:30 EDT 100 mg IV iohexoL (OMNIPAQUE 350) solution 100 mL 100 mL, intravenous, Once in imaging, 1 dose, Starting on Michelle 04/08/22 at 1035, Until Michelle 04/08/22 at 1044, Routine Given 04/08/2022 10:44 EDT 15 mL iohexoL (OMNIPAQUE 350) solution 50 mL 50 mL, intravenous, Once in imaging, 1 dose, Starting on Michelle 04/08/22 at 1036, Until Michelle 04/08/22 at 1044, Routine Given 04/08/2022 10:44 EDT 15 mL lidocaine-prilocaine (EMLA) 2.5-2.5 % cream topical, NOW X1, 1 dose, On Michelle 04/08/22 at 0900 Given 04/08/2022 9:06 EDT midazolam (MDV) (VERSED) injection 0.5-10 mg 0.5-10 mg, intravenous, ONCE PRN, 1 dose, Starting on Michelle 04/08/22 at 0823, Until Michelle 04/08/22 at 1029, Sedation, Routine, Preprocedure Given 04/08/2022 10:29 EDT 2.5 mg nitroGLYCERIN (NITROGLYN) 2 % ointment 0.5 Inch 0.5 Inch, topical, NOW X1, 1 dose, On Michelle 04/08/22 at 0900, Routine Given 04/08/2022 9:08 EDT 0.5 Inches nitroGLYcerin 25 mg/250 mL (100 mcg/mL) infusion 200 mcg 200 mcg, intravenous, CONTINUOUS, Starting on Michelle 04/08/22 at 0900, Until 04/10/22 at 0203, Routine New Bag 04/08/2022 9:43 EDT 200 mcg nitroGLYcerin 25 mg/250 mL (100 mcg/mL) infusion 500 mcg 500 mcg, intravenous, NOW X1, 1 dose, On Michelle 04/08/22 at 0900, Routine Given 04/08/2022 9:48 EDT 500 mcg nitroGLYcerin 25 mg/250 mL (100 mcg/mL) infusion intravenous, PRN, Starting on Michelle 04/08/22 at 1001, Until Michelle 04/08/22 at 1033, Routine Given 04/08/2022 10:33 EDT 200 mcg Given 04/08/2022 10:14 EDT 100 mcg Given 04/08/2022 10:01 EDT 200 mcg ondansetron (PF) (ZOFRAN) injection intravenous, PRN, Starting on Michelle 04/08/22 at 1039, Until Michelle 04/08/22 at 1039, Routine Given 04/08/2022 10:39 EDT 4 mg oxyCODONE (ROXICODONE) immediate release tablet 5 mg 5 mg, oral, NOW X1, 1 dose, On Michelle 04/08/22 at 1215, STAT Given 04/08/2022 11:59 EDT 5 mg sodium chloride 0.9 % (NS) infusion 50 mL/hr, intravenous, CONTINUOUS, Starting on Michelle 04/08/22 at 0845, Until 04/10/22 at 0203, Routine, Preprocedure Rate Documented 04/08/2022 11:10 EDT 50 mL/hr 50 mL/hr New Bag 04/08/2022 8:26 EDT 50 mL/hr 50 mL/hr verapamil (ISOPTIN) injection 2.5 mg 2.5 mg, intravenous, NOW X1, 1 dose, On Michelle 04/08/22 at 0900, Routine Given 04/08/2022 9:43 EDT 2.5 mg documented in this encounter Discontinued Medications Medication Sig Discontinue Reason Start Date End Da te ondansetron (ZOFRAN-ODT) 8 mg disintegrating tablet Take 1 Tablet by mouth every 8 hours as needed for Nausea. 04/08/2022 04/08/2022 documented as of this encounter Orders Medications Ordered That Vj ht Not Have Been Administered Count Last Ordered Date First Ordered Date acetaminophen (TYLENOL) suppository 650 mg 1 04/08/2022 acetaminophen (TYLENOL) tablet 650 mg 1 flumazenil (ROMAZICON) injection 0.2 mg 1 1 hydrocortisone sodium succin ate (PF) (SOLU-CORTEF) 100 mg in sodium chloride (NS) 0.9 % 50 mL IVPB 1 04/08/2022 lidocaine (PF) 10 mg/mL (1 % ) injection 2 mg 2 04/08/2022 naloxone (NARCAN) injection 0.4 mg 1 2021 oxyCODONE (ROXICODONE) immed iate release tablet 5 mg 2 04/08/2022 Discharge Count Last Ordered Date First Orde red Date DISCHARGE PATIENT 1 04/08/2022 documented in this encounter Care Teams Armhole Baster Jumpbasting Relationship Specialty Start Date End Date Linda Blancas MD [facility] [address] [place] [address] PCP - General 01/06/11 Adolfo Carreno MD [address] [place] [phone] General Surgery 04/26/19 Augustina Colin MD PhD [address] [place] [phone] Medical Oncology 04/26/19 documented as of this encounter
--- OUTSIDE RECORDS SUMMARY | 2024-03-20 14:48 | XMS_ITS | Encounter Summary ---
Author Organization [facility] Address [address] [place] [address] Care Team Providers Care Reception Interviewer Name Role Phone Linda Blancas MD Primary Care Provider [phone] Adolfo Carreno MD Unavailable [phone] Augustina Colin MD PhD Unavailable Unavailable Reason for Visit * Reason Onset Date Comments Medication Adherence 04/09/2022 Encounter Details Date Type Department Care Team (Late st Contact Info) Description 04/09/2022 Telephone [facility] Interventional Radiology - [place] [address], [place] [phone] Marisol Cunha RN Medication Adherence Social History Tobacco Use Types Packs/Day Years [...] encounter Miscellaneous Notes * Telephone Encounter - Marisol Cunha RN - 04/09/2022 1210 EDT Call back to patient regarding Sendy's pain. Per Dr Chin patient to take 800 mg q8h, tylenol 500 mg q6h through the weekend. Dr chin will attempt to call in script to additional oxycodone for the weekend Patient aware and compliant documented in this encounter Plan of Treatment Upcoming Encounters Date Type Department Care Team (Late st Contact Info) Description 04/02/2024 10:30 EDT Appointment [facility] Interventional Radiology Unit [address] [place] [id number] 04/02/2024 15:15 EDT Office Visit [facility] Surgical Oncology - [address] [phone] Adolfo Carreno MD 111 [facility] 2 [place] [phone] 04/05/2024 9:30 EDT Telemedicine [facility] - [facility] Palliative Care Services [address], [place] 956771 Chichi Woods MD [address] [place] [phone] 04/11/2024 15:00 EDT Telemedicine [facility] Hematology & Oncology - [facility] [address], [place] [phone] Alisson Carreon MD 111 [facility], [facility] [address] [place] [phone] 04/13/2024 13:30 EDT Appointment [facility] Hematology & Oncology - [address] [phone] 04/13/2024 14:00 EDT Appointment [facility] Hematology & Oncology - [address] [phone] 04/16/2024 10:00 EST Telemedicine [facility] - [facility] Palliative Care Services [address] [place] [address] [phone] Chichi Woods MD [address] [place] [address], [address] [phone] 04/24/2024 9:00 EST Appointment [facility] Radiology CT Outpatient - [address] [id number] 04/24/2024 11:00 EST Appointment [facility] Breast Imaging - [facility] [address] [id number] 04/27/2024 12:00 EST Appointment [facility] Hematology & Oncology - [address] [phone] 05/02/2024 15:00 EST Telemedicine [facility] Hematology & Oncology - [address] [phone] Alisson Carreon MD [address] [place] [address], Level [address] [place] [phone] 05/04/2024 10:15 EST Ancillary Procedure [facility] Cardiology - [address] [place], [place] [phone] 05/04/2024 11:30 EST Appointment [facility] Hematology & Oncology - [address] [address] 05/04/2024 12:00 EST Appointment [facility] Hematology & Oncology - [address] [address] 06/12/2024 13:00 EST Appointment [facility] Radiology CT - [address] [phone] documented as of this encounter Visit Diagnoses Not on filedocumented in this encounter Care Teams Reception Interviewer Relationship Specialty Start Date End Date Linda Blancas MD [facility] [address] [place] [address] PCP - General 01/06/11 Adolfo Carreno MD [address] [place] [address] 2 [place] [phone] General Surgery 04/26/19 Augustina Colin MD PhD [address] [place] [address] 2 [place] [phone] Medical Oncology 04/26/19 documented as of this encounter
--- OUTSIDE RECORDS SUMMARY | 2024-03-20 14:48 | XMS_ITS | Encounter Summary ---
Author Organization [facility] Address [address] [place] [address] Care Team Providers Care Heating And Blending Supervisor Name Role Phone Linda Blancas MD Primary Care Provider [phone] Adolfo Carreno MD Unavailable [phone] Augustina Colin MD PhD Unavailable Unavailable Reason for Referral * Radiology Services (Routine/Next Available) - Authorization Not Required Specialty Diagnoses / Procedures Referred By Contac t Referred To Contact Nuclear Medicine Diagnoses Liver metastases Procedures NM LIVER WITH SPECT/CT Scriver, David Rowley MD [address] [phone] [facility] Referral ID Status Reason Start Date Expiration Date Visits Requested Visits Authorized [id number] Authorization Not Required 04/19/2022 1 1 * Radiology Services (Routine/Next Available) - Authorization Not Required Specialty Diagnoses / Procedures Referred By Contac t Referred To Contact Nuclear Medicine Diagnoses Liver metastases Procedures NM TUMOR LOCALIZATION WITH SPECT/CT ScriverDavid MD [address] [phone] [facility] Referral ID Status Reason Start Date Expiration Date Visits Requested Visits Authorized [id number] Authorization Not Required 04/19/2022 1 1 Encounter Details Date Type Department Care Team (Late st Contact Info) Description 04/19/2022 Orders Only [facility] Interventional Radiology - [address] [phone] David Moya MD [address] [place] [address], [place], Level [address] [place] [phone] Liver metastases (HCC-CMS) (HCC) (HCC-CMS) (Primary Dx) [...] [facility] [address] [place] [address] [phone] 04/02/2024 15:15 EDT Office Visit [facility] Surgical Oncology - [address] [phone] Adolfo Carreno MD [address] [place] [address] 2 [place] [phone] 04/05/2024 9:[address] [facility] Palliative Care Services [address] [place] [address] [phone] Chichi Woods MD [address] [place] [phone] 04/11/2024 15:[address] [facility] Hematology & Oncology - [address] [phone] Alisson Carreon MD [address] [place] [address] 2 [place] [phone] 04/13/2024 13:[address] [facility] Hematology & Oncology - [address] [phone] 04/13/2024 14:[address] [facility] Hematology & Oncology - [address] [address] 04/16/2024 10:[address] [facility] Palliative Care Services [address] [place] [address] [phone] Chichi Woods MD [address] [place] [phone] 04/24/2024 9:00 EST Appointment [facility] Radiology CT Outpatient - [address] [id number] 04/24/2024 11:00 EST Appointment [facility] Breast Imaging - [facility] [place] [address] [place], [place] [phone] 04/27/2024 12:[address] [facility] Hematology & Oncology [address] [id number] 05/02/2024 15:[address] [facility] Hematology & Oncology [address] [phone] Alisson Carreon MD [address] [place] [address], [address] [place] [phone] 05/04/2024 10:15 EST Ancillary Procedure [facility] Cardiology - [address] [place] [address] 05/04/2024 11:[address] [facility] Hematology & Oncology [address] [phone] 05/04/2024 12:[address] [facility] Hematology & Oncology [address] [phone] 06/12/2024 13:00 EST Appointment [facility] Radiology CT - [address] [phone] documented as of this encounter Results * NM TUMOR LOCALIZATION [...] andagree with the findings. David Moya MD IMEmmanuel NM ORDER ANUSHA * NM LIVER WITH SPECT/CT (05/13/2022 13:43 EST) Anatomical Region Laterality Modality Nuclear Medicine 05/14/2022 10:0 5 EST Impressions 05/14/2022 10:05 EST Appropriate site for selective injection of Y90 microspheres treatment dose with radiotracer uptake centered in hepatic segment IVb. No visible extrahepatic intra-abdominal uptake. Estimated lung shunt fraction of 1.7%. I have personally reviewed the images and the above interpretation and agree with the findings. Narrative 05/14/2022 10:05 EST LIVER SPLEEN SCAN Signs and Symptoms: ?? Y90 Comparison: Nuclear medicine limited with SPECT 04/07/2022, nuclear medicine tumor localization 04/08/2022. Prior embolization images 05/13/2022. Abdominal MRI 02/25/2022. CTA abdomen 03/31/2022. Technique: After arterial selective injection of 1.1 mCi Tc-99m MAA into the left hepatic artery, standard liver-spleen images were obtained. ??SPECT/CT images of the upper abdomen were obtained. Findings: Radiotracer uptake is identified in the wedge-shaped area centered in hepatic segment IVb and to a much lesser extent the remainder of the left hepatic lobe. No significant extrahepatic intra-abdominal activity is identified. Lung shunt fraction is estimated at ??<1.7% Incidental CT findings: Lytic osseous metastatic lesions are redemonstrated. The patient is post L 3-S1 spinal fusion and bilateral breast implant placement. There are atherosclerotic calcifications in the nonaneurysmal abdominal aorta and its major branch vessels. Scattered hypodense hepatic lesions corresponding with metastatic disease are better evaluated on prior MRI. Procedure Note Merry Dooley MD - 05/14/2022 LIVER SPLEEN SCAN Signs and Symptoms: Y90 Comparison: Nuclear medicine limited with SPECT 04/07/2022, nuclear medicine tumorlocalization 04/08/2022. Prior embolization images 05/13/2022. AbdominalMRI 02/25/2022. CTA abdomen 03/31/2022. Technique: After arterial selective injection of 1.1 mCi Tc-99m MAA into the lefthepatic artery, standard liver-spleen images were obtained. SPECT/CTimages of the upper abdomen were obtained. Findings: Radiotracer uptake is identified in the wedge-shaped area centered inhepatic segment IVb and to a much lesser extent the remainder of the lefthepatic lobe. No significant extrahepatic intra-abdominal activity isidentified. Lung shunt fraction is estimated at <1.7% Incidental CT findings: Lytic osseous metastatic lesions areredemonstrated. The patient is post L 3-S1 spinal fusion and bilateralbreast implant placement. There are atherosclerotic calcifications in thenonaneurysmal abdominal aorta and its major branch vessels. Scatteredhypodense hepatic lesions corresponding with metastatic disease are betterevaluated on prior MRI. IMPRESSION Appropriate site for selective injection of Y90 microspheres treatmentdose with radiotracer uptake centered in hepatic segment IVb. No visible extrahepatic intra-abdominal uptake. Estimated lung shunt fraction of 1.7%. I have personally reviewed the images and the above interpretation andagree with the findings. David Moya MD IM NM ORDER ANUSHA documented in this encounter Visit Diagnoses Diagnosis Liver metastases- Primary Secondary malignant neoplasm of liver Liver metastases Secondary malignant neoplasm of liver Liver metastases Secondary malignant neoplasm of liver documented in this encounter Care Teams Heating And Blending Supervisor Relationship Specialty Start Date End Date Linda Blancas MD [address] [place] [address] 30 [place] [address] PCP - General 01/06/11 Adolfo Carreno MD [address] [place] [phone] General Surgery 04/26/19 Augustina Colin MD PhD [address] [place] [phone] Medical Oncology 04/26/19 documented as of this encounter
--- OUTSIDE RECORDS SUMMARY | 2024-03-20 14:48 | XMS_ITS | Encounter Summary ---
Author Organization [facility] Address [address] [place] [address] Care Team Providers Care Video Systems Engineer Name Role Phone Linda Blancas MD Primary Care Provider [phone] Adolfo Carreno MD Unavailable [phone] Augustina Colin MD PhD Unavailable Unavailable Encounter Details Date Type Department Care Team (Late st Contact Info) Description 04/09/2022 Orders Only [facility] Hematology & Oncology - [facility] [address] [place] [address] Mony Dewey, RN Social History Tobacco Use Types Packs/Day [...] te capecitabine (XELODA) 500 mg tablet Take 2 Tablets by mouth every 12 hours. 60 Tablet 3 04/11/2022 07/23/2022 documented in this encounter Plan of Treatment Upcoming Encounters Date Type Department Care Team (Late st Contact Info) Description 04/02/2024 10:30 EDT Appointment [facility] Interventional Radiology Unit [address] [place] [address] [phone] 04/02/2024 15:15 EDT Office Visit [facility] Surgical Oncology - [address] [phone] Adolfo Carreno MD [address] [place] [address] 2 [place] [phone] 04/05/2024 9:30 EDT Telemedicine [facility] - [facility] Palliative Care Services [address] [place] [address] [phone] Chichi Woods MD [address] [place] [address], [address] [phone] 04/11/2024 15:00 EDT Telemedicine [facility] Hematology & Oncology [address] [phone] Alisson Carreon MD [address] [place] [phone] 04/13/2024 13:30 EDT Appointment [facility] Hematology & Oncology [address] [phone] 04/13/2024 14:00 EDT Appointment [facility] Hematology & Oncology - [address] [address] 04/16/2024 10:00 EST Telemedicine [facility] - [facility] Palliative Care Services [address] [place] [address] Chichi Woods MD [address] [place] [address], [address] [phone] 04/24/2024 9:00 EST Appointment [facility] Radiology CT Outpatient - [address] [address] 04/24/2024 11:00 EST Appointment [facility] Breast Imaging - [address] [id number] 04/27/2024 12:00 EST Appointment [facility] Hematology & Oncology - [address] [address] 05/02/2024 15:00 EST Telemedicine [facility] Hematology & Oncology - [address] [phone] Alisson Carreon MD [address] [place] [address], [facility], [facility] 2 [place] [phone] 05/04/2024 10:15 EST Ancillary Procedure [facility] Cardiology [place] [place] [address] 05/04/2024 11:30 EST Appointment [facility] Hematology & Oncology - [address] [address] 05/04/2024 12:00 EST Appointment [facility] Hematology & Oncology - [address] [phone] 06/12/2024 13:00 EST [facility] Rad[facility] - [address] [address] documented as of this encounter Visit Diagnoses Not on filedocumented in this encounter Discontinued Medications Medication Sig Discontinue Reason Start Date End Da te capecitabine (XELODA) 500 mg tablet Take 2 Tablets by mouth every 12 hours. Reorder 04/09/2022 04/09/2022 documented as of this encounter Care Teams Video Systems Engineer Relationship Specialty Start Date End Date Linda Blancas MD [facility] [address] [place] [address] PCP - General 01/06/11 Adolfo Carreno MD [address] [place] [phone] General Surgery 04/26/19 Augustina Colin MD PhD [address] [place] [phone] Medical Oncology 04/26/19 documented as of this encounter
--- OUTSIDE RECORDS SUMMARY | 2024-03-20 14:48 | XMS_ITS | Encounter Summary ---
Author Organization [facility] Address [address] [place] [address] Care Team Providers Care Supervisor [employer] Name Role Phone Linda Blancas MD Primary Care Provider [phone] Adolfo Carreno MD Unavailable [phone] Augustina Colin MD PhD Unavailable Unavailable Reason for Referral * Radiology Services (Routine/Next Available) - Authorization Not Required Specialty Diagnoses / Procedures Referred By Contac t Referred To Contact Nuclear Medicine Diagnoses Liver metastasis Procedures NM LIVER WITH SPECT/CT Scriver, David Rowley MD [address] [place] [phone] [facility] Referral ID Status Reason Start Date Expiration Date Visits Requested Visits Authorized [id number] Authorization Not Required 03/16/2022 1 1 Reason for Visit * Radiology Services (Routine/Next Available) - Authorization Not Required Specialty Diagnoses / Procedures Referred By Contac t Referred To Contact Nuclear Medicine Diagnoses Liver metastasis Procedures NM LIVER WITH SPECT/CT ScrDavid peters MD [address] [place] [phone] [facility] Referral ID Status Reason Start Date Expiration Date Visits Requested Visits Authorized [id number] Authorization Not Required 03/16/2022 1 1 Encounter Details Date Type Department Care Team (Latest Contact Info) Description 04/07/2022 6:34 EDT - 04/07/2022 23:59 EDT Hospital Encounter [facility] Radiology Nuclear [place] [address] Liver metastasis (HCC-CMS) (HCC) (HCC-CMS) Discharge Disposition: [...] Sign Reading Time Taken Comments Blood Pressure 111/58 04/07/2022 1115 EDT Pulse - - Temperature - - Respiratory Rate - - Oxygen Saturation 93% 04/07/2022 1115 EDT Inhaled Oxygen Concentration - - [...] Tablets by mouth as needed. 12/07/2023 mv-mn/C/glutamin/lysin /siap734 (A[place]NE, ASCORBATE SODIUM, ORAL) Take by mouth as needed. 12/14/2023 omeprazole (PRILOSEC) 20 mg capsule Take 1 Capsule by mouth daily. 03/28/2023 palbociclib 100 mg capsuleIndications:Met astatic breast cancer Take 100 mg by mouth [...] EDT Appointment [facility] Interventional Radiology Unit [address] [place] [address] [phone] 04/02/2024 15:15 EDT Office Visit [facility] Surgical Oncology - [address] 163131 Adolfo Carreno MD 111 [facility], Level 2 [place] [phone] 04/05/2024 9:[address] [facility] - [facility] [address] [place] [address] [phone] Chichi Woods MD [address] [place] [phone] 04/11/2024 15:00 EDT Telemedicine [facility] Hematology & Oncology [address] 480391 Alisson Carreon MD [address] [place] [address] Level [address] [place] [phone] 04/13/2024 13:30 EDT Appointment [facility] Hematology & Oncology [address] [phone] 04/13/2024 14:00 EDT Appointment [facility] Hematology & Oncology [address] 352251 04/16/2024 10:[address] [facility] - [facility] [address] [place] [address] 115661 Chichi Woods MD [address] [place] [phone] 04/24/2024 9:00 EST Appointment [facility] Radiology CT Outpatient - [address] [id number] 04/24/2024 11:00 EST Appointment [facility] Breast Imaging - [address] [phone] 04/27/2024 12:00 EST Appointment [facility] Hematology & Oncology - [address] 475171 05/02/2024 15:00 EST Telemedicine [facility] Hematology & Oncology - [address] 222001 Alisson Carreon MD 111 [facility], [facility], Level [address] [place] [phone] 05/04/2024 10:15 EST Ancillary Procedure [facility] Cardiology - [address] [place] [address] 05/04/2024 11:30 EST Appointment [facility] Hematology & Oncology - [facility] [address] [place], [place] 630541 05/04/2024 12:00 EST Appointment [facility] Hematology & Oncology [address] [phone] 06/12/2024 13:00 EST Appointment [facility] Radiology CT - [facility] [address] [place], [place] [phone] documented as of this encounter Procedures Procedure Name Priority Date/Time Associated Diagnosis Comments NM LIVER WITH SPECT/CT Routine 04/07/2022 12:05 EDT Liver metastasis (HCC-CMS) (HCC) (HCC-CMS) documented in this encounter Results * NM LIVER WITH SPECT/CT (04/07/2022 12:05 EDT) Anatomical Region Laterality Modality Nuclear Medicine 04/07/2022 16:1 1 EDT Narrative 04/07/2022 16:11 EDT NM LIVER WITH SPECT/CT ??04/07/2022 11:00 AM Clinical History/Comments: Y90 Comparison: IR embo 04/07/22, CT abdomen 03/31/22, MR abdomen 02/25/22 Technique: After the IV injection of 1 mCi Tc-99m MAA, standard liver images were obtained. ??SPECT/CT images of the upper abdomen were obtained. Findings: The lung shunt fraction is 1.3 %. There is radiotracer uptake predominantly in the right hepatic lobe. Low-dose CT: Bilateral mammoplasties. Atherosclerosis in the abdominal aorta. Hepatic lesions are better evaluated on recent CT and MRI. I have personally reviewed the images and the above interpretation and agree with the findings. Procedure Note Merry Dooley MD - 04/07/2022 NM LIVER WITH SPECT/CT 04/07/2022 11:00 AM Clinical History/Comments: Y90 Comparison: IR embo 04/07/22, CT abdomen 03/31/22, MR abdomen 02/25/22 Technique: After the IV injection of 1 mCi Tc-99m MAA, standard liver images wereobtained. SPECT/CT images of the upper abdomen were obtained. Findings: The lung shunt fraction is 1.3 %. There is radiotracer uptake predominantly in the right hepatic lobe. Low-dose CT: Bilateral mammoplasties. Atherosclerosis in the abdominal aorta. Hepaticlesions are better evaluated on recent CT and MRI. I have personally reviewed the images and the above interpretation andagree with the findings. David Moya MD IMG NM ORDER ANUSHA documented in this encounter Visit Diagnoses Diagnosis Liver metastasis Secondary malignant neoplasm of liver documented in this encounter Administered Medications Inactive Administered Medications - up to 3 most recent administrations Medication Order MAR Action Action Date Dose Rate Site technetium (Tc-99m) macroaggregated albumin (MAA) injection 6 millicurie 6 millicurie, radiopharm IV, NOW X1, 1 dose, On Tue04/07/22 at 1045, Routine, Imaging Protocol Orders Given 04/07/2022 10:22 EDT 1.07 millicuries documented in this encounter Orders Medications Ordered That Vj ht Not Have Been Administered Count Last Ordered Date First Ordered Date technetium (Tc-99m) macroagg regated albumin (MAA) injection 6 millicurie 1 04/07/2022 documented in this encounter Care Teams Supervisor [employer] Relationship Specialty Start Date End Date Linda Blancas MD [address] [place] [address] PCP - General 01/06/11 Adolfo Carreno MD [address] [place] [address], [facility], Level [address] [place] [phone] General Surgery 04/26/19 Augustina Colin MD PhD [address] [place] [address] 2 [place] [phone] Medical Oncology 04/26/19 documented as of this encounter
--- OUTSIDE RECORDS SUMMARY | 2024-03-20 14:48 | XMS_ITS | Encounter Summary ---
Author Organization [facility] Address [address] [place] [address] Care Team Providers Care Alterations Supervisor Name Role Phone Linda Blancas MD Primary Care Provider [phone] Adolfo Carreno MD Unavailable [phone] Augustina Colin MD PhD Unavailable Unavailable Reason for Visit * Reason Onset Date Comments IR Procedure Follow-up 05/17/2022 Encounter Details Date Type Department Care Team (Late st Contact Info) Description 05/17/2022 Telephone [facility] Interventional Radiology - Main [place] [address] [place], [place] [phone] Marisol Cunha RN IR Procedure Follow-up Social History Tobacco Use Types Packs/Day [...] Telephone Encounter - Marisol Cunha RN - 05/17/2022 0907 EST Call to Sendy s/p left lobe y90 on 05-[address] Moya. Spoke to spouse nitish, who reports Sendy had a good weekend and is feeling so much better than thelast time She reports minimal abdominal pain and is only taking motrin prn. Reports slightly decreased energy level, is resting as needed and sleeping well. Reports slight nausea, taking zofran prn, tolerating PO well. Denies fever, chills, N/V Wrist site is CDI, denies pain, swelling or bruising. No dressing present. Nitish and Sendy are very grateful to the IR team. Plan: second call on 05-21, OV, MRI and labs in 3 months (unless done by Dr Colin) documented in this encounter Plan of Treatment Upcoming Encounters Date Type Department Care Team (Late st Contact Info) Description 04/02/2024 10:30 EDT Appointment [facility] Interventional Radiology Unit [address] [place] [address] [phone] 04/02/2024 15:15 EDT Office Visit [facility] Surgical Oncology - [address] [phone] Adolfo Carreno MD 111 [facility], Level 2 [place] [phone] 04/05/2024 9:30 EDT Telemedicine [facility] - [facility] Palliative Care Services [address] [place] [address] [phone] Chichi Woods MD [address] [place] [address] [address] [place] [phone] 04/11/2024 15:00 EDT Telemedicine [facility] Hematology & Oncology - [address] [phone] Alisson Carreon MD [address] [place] [address], Level [address] [place] [phone] 04/13/2024 13:30 EDT Appointment [facility] Hematology & Oncology [address] [phone] 04/13/2024 14:00 EDT Appointment [facility] Hematology & Oncology [address] [phone] 04/16/2024 10:00 EST Telemedicine [facility] - [facility] Palliative Care Services [address] [place] [address] [phone] Chichi Woods MD [address] [place] [address] [phone] 04/24/2024 9:00 EST Appointment [facility] Radiology CT Outpatient - [address] 199951 04/24/2024 11:00 EST Appointment [facility] Breast Imaging - [facility] [address] [phone] 04/27/2024 12:00 EST Appointment [facility] Hematology & Oncology [address] 623581 05/02/2024 15:00 EST Telemedicine [facility] Hematology & Oncology - [address] [phone] Alisson Carreon MD [address] [place] [address] 2 [place] [phone] 05/04/2024 10:15 EST Ancillary Procedure [facility] Cardiology - [address] [place] [address] 05/04/2024 11:30 EST Appointment [facility] Hematology & Oncology [address] [phone] 05/04/2024 12:00 EST Appointment [facility] Hematology & Oncology [address] [phone] 06/12/2024 13:00 EST Appointment [facility] Radiology CT - [address] 014321 documented as of this encounter Visit Diagnoses Not on filedocumented in this encounter Care Teams Alterations Supervisor Relationship Specialty Start Date End Date Linda Blancas MD [facility] [address] [place] [address] PCP - General 01/06/11 Adolfo Carreno MD [address] [place] [phone] General Surgery 04/26/19 Augustina Colin MD PhD [address] [place] [phone] Medical Oncology 04/26/19 documented as of this encounter
--- OUTSIDE RECORDS SUMMARY | 2024-03-20 14:48 | XMS_ITS | Encounter Summary ---
Author Organization [facility] Address [address] [place] [address] Care Team Providers Care Airport Manager Name Role Phone Linda Blancas MD Primary Care Provider [phone] Adolfo Carreno MD Unavailable [phone] Augustina Colin MD PhD Unavailable Unavailable Reason for Visit * Reason Onset Date Comments Follow-up 04/16/2022 Encounter Details Date Type Department Care Team (Late st Contact Info) Description 04/16/2022 Telephone [facility] Interventional Radiology - Main [place] [address] [place], [place] [phone] Marisol Cunha RN Follow-up Social History Tobacco Use Types [...] Telephone Encounter - Marisol Cunha RN - 04/16/2022 1118 EDT Second follow up call to patient y-90 on 04-08. Patient reports feeling much better than last week. RUQ pain improved over last weekend. Currently only taking motrin prn. Energy level is improving. Tolerating PO well, denies N/V. Left wrist site CDI, slight soreness. Plan: labs to be drawn next week. L lobe y-90 in early May documented in this encounter Plan of Treatment Upcoming Encounters Date Type Department Care Team (Late st Contact Info) Description 04/02/2024 10:30 EDT Appointment [facility] Interventional Radiology Unit [address] [place] [address] [phone] 04/02/2024 15:15 EDT Office Visit [facility] Surgical Oncology - [address] [phone] Adolfo Carreno MD 111 [facility], Level 2 [place] [phone] 04/05/2024 9:30 EDT Telemedicine [facility] - [facility] Palliative Care Services [address] [place], [place] [phone] Chichi Woods MD [address] [place], [address] [phone] 04/11/2024 15:00 EDT Telemedicine [facility] Hematology & Oncology - [address] [phone] Alisson Carreon MD [address] [place] [address] 2 [place] [phone] 04/13/2024 13:30 EDT Appointment [facility] Hematology & Oncology - [address] [phone] 04/13/2024 14:00 EDT Appointment [facility] Hematology & Oncology - [address] [phone] 04/16/2024 10:00 EST Telemedicine [facility] - [facility] Palliative Care Services [address] [place] [address] [phone] Chichi Woods MD [address] [place] [address], [address] [phone] 04/24/2024 9:00 EST Appointment [facility] Radiology CT Outpatient - [address] [phone] 04/24/2024 11:00 EST Appointment [facility] Breast Imaging - [address] [phone] 04/27/2024 12:00 EST Appointment [facility] Hematology & Oncology - [address] [phone] 05/02/2024 15:00 EST Telemedicine [facility] Hematology & Oncology - [address] [phone] Alisson Carreon MD [address] [place] [address], [facility] 2 [place] [phone] 05/04/2024 10:15 EST Ancillary Procedure [facility] Cardiology [place] [address] [place] [address] 05/04/2024 11:30 EST Appointment [facility] Hematology & Oncology - [address] [address] 05/04/2024 12:00 EST Appointment [facility] Hematology & Oncology [address] [address] 06/12/2024 13:00 EST Appointment [facility] Radiology CT - [address] [address] documented as of this encounter Visit Diagnoses Not on filedocumented in this encounter Care Teams Airport Manager Relationship Specialty Start Date End Date Linda Blancas MD [facility] [address] [place] [address] PCP - General 01/06/11 Adolfo Carreno MD [address] [place] [phone] General Surgery 04/26/19 Augustina Colin MD PhD [address] [place] [phone] Medical Oncology 04/26/19 documented as of this encounter
--- OUTSIDE RECORDS SUMMARY | 2024-03-20 14:48 | XMS_ITS | Encounter Summary ---
Author Organization [facility] Address [address] [place] [address] Care Team Providers Care Intake Coordinator Name Role Phone Linda Blancas MD Primary Care Provider [phone] Adolfo Carreno MD Unavailable [phone] Augustina Colin MD PhD Unavailable Unavailable Reason for Visit * Reason Onset Date Comments Medications Refill 04/09/2022 Encounter Details Date Type Department Care Team (Late st Contact Info) Description 04/09/2022 Telephone [facility] - [facility] [address] [place], [place] [phone] Augustina Colin, PhD Medications Refill Social History [...] encounter Miscellaneous Notes * Telephone Encounter - Aisha Callaway - 04/09/2022 1343 EDT Medication Request Medication: Capecitabine Medication refill: no Medication dose change: yes Refill due: Date of last fill: 03/15/22 Pharmacy: [facility] Next appt: 04/26/22 documented in this encounter Plan of Treatment Upcoming Encounters Date Type Department Care Team (Late st Contact Info) Description 04/02/2024 10:30 EDT Appointment [facility] Interventional Radiology Unit [address] [place] [address] [phone] 04/02/2024 15:15 EDT Office Visit [facility] Surgical Oncology - [address] [phone] Adolfo Carreno MD [address] [place] [phone] 04/05/2024 9:[address] [facility] - [facility] Palliative Care Services [address] [place] [address] [phone] Chichi Woods MD [address] [place] [address], [address] [phone] 04/11/2024 15:00 EDT Telemedicine [facility] Hematology & Oncology - [address] [phone] Alisson Carreon MD [address] [place] [address] 2 [place] [phone] 04/13/2024 13:30 EDT Appointment [facility] Hematology & Oncology - [address] [phone] 04/13/2024 14:00 EDT Appointment [facility] Hematology & Oncology - [address] [phone] 04/16/2024 10:[address] [facility] - [facility] Palliative Care Services [address] [place] [address] [phone] Chichi Woods MD [address] [place] [address], [address] [phone] 04/24/2024 9:00 EST Appointment [facility] Radiology CT Outpatient - [address] [address] 04/24/2024 11:00 EST Appointment [facility] Breast Imaging - [facility] S [address] [phone] 04/27/2024 12:00 EST Appointment [facility] Hematology & Oncology - [address] 938561 05/02/2024 15:00 EST Telemedicine [facility] Hematology & Oncology - [address] [address] Alisson Carreon MD [address] [place] [address], Level 2 [place] [phone] 05/04/2024 10:15 EST Ancillary Procedure [facility] Cardiology - [address] [place], [place] [phone] 05/04/2024 11:30 EST Appointment [facility] Hematology & Oncology - [address] [address] 05/04/2024 12:00 EST Appointment [facility] Hematology & Oncology - [address] [address] 06/12/2024 13:00 EST [facility]ointment [facility] Radiology CT - [address] [address] documented as of this encounter Visit Diagnoses Not on filedocumented in this encounter Additional Health Concerns Infection Onset Date Last Indicated Resolved Time R/O COVID-19 12/12/2023 12/12/2023 12/12/2023 15:3 5 EDT R/O COVID-19 01/08/2024 01/08/2024 01/08/2024 18:2 6 EDT R/O COVID-19 01/16/2024 01/16/2024 01/16/2024 17:5 0 EDT documented as of this encounter Care Teams Intake Coordinator Relationship Specialty Start Date End Date Linda Blancas MD [facility] [address] [place] [address] PCP - General 01/06/11 Adolfo Carreno MD [address] [place] [phone] General Surgery 04/26/19 Augustina Colin MD PhD [address] [place] [phone] Medical Oncology 04/26/19 documented as of this encounter
--- OUTSIDE RECORDS SUMMARY | 2024-03-20 14:48 | XMS_ITS | Encounter Summary ---
Author Organization [facility] Address [address] [place] [address] Care Team Providers Care Bobbin Stripper Name Role Phone Linda Blancas MD Primary Care Provider [phone] Adolfo Carreno MD Unavailable [phone] Augustina Colin MD PhD Unavailable Unavailable Reason for Referral * Radiology Services (Routine/Next Available) - Authorization Not Required Specialty Diagnoses / Procedures Referred By Contac t Referred To Contact Nuclear Medicine Diagnoses Liver metastases Procedures NM LIVER WITH SPECT/CT Scriver, David Rowley MD [address] [place] [phone] [facility] Referral ID Status Reason Start Date Expiration Date Visits Requested Visits Authorized [id number] Authorization Not Required 04/19/2022 1 1 Reason for Visit * Radiology Services (Routine/Next Available) - Authorization Not Required Specialty Diagnoses / Procedures Referred By Contac t Referred To Contact Nuclear Medicine Diagnoses Liver metastases Procedures NM LIVER WITH SPECT/CT David Moya MD [address] [place] [phone] [facility] Referral ID Status Reason Start Date Expiration Date Visits Requested Visits Authorized [id number] Authorization Not Required 04/19/2022 1 1 Encounter Details Date Type Department Care Team (Latest Contact Info) Description 05/13/2022 7:28 EST - 05/13/2022 23:59 EST Hospital Encounter [facility] Radiology Nuclear [place] [address] Liver metastases (HCC-CMS) (HCC) (HCC-CMS) Discharge Disposition: [...] Tablets by mouth as needed. 12/07/2023 mv-mn/C/glutamin/lysin/h [id number] (AIRBORNE, ASCORBATE SODIUM, ORAL) Take by mouth [...] Appointment [facility] Interventional Radiology Unit [address] [place] [address] [phone] 04/02/2024 15:15 EDT Office Visit [facility] Surgical Oncology - [address] [phone] Adolfo Carreno MD 111 [facility], Level [address] [place] [phone] 04/05/2024 9:30 EDT Telemedicine [facility] Palliative Care Services [address] [place] [address] [phone] Chichi Woods MD [address] [place] [phone] 04/11/2024 15:00 EDT Telemedicine [facility] Hematology & Oncology [address] 591011 Alisson Carreon MD [address] [place] [address], Level [address] [place] [phone] 04/13/2024 13:30 EDT Appointment [facility] Hematology & Oncology [address] [id number] 04/13/2024 14:00 EDT Appointment [facility] Hematology & Oncology [address] [id number] 04/16/2024 10:00 EST Telemedicine [facility] Palliative Care Services [address] [place] [address] [phone] Chichi Woods MD [address] [place] [phone] 04/24/2024 9:00 EST Appointment [facility] Radiology CT Outpatient - [address] [id number] 04/24/2024 11:00 EST Appointment [facility] Breast Imaging - [address] [phone] 04/27/2024 12:00 EST Appointment [facility] Hematology & Oncology [address] [id number] 05/02/2024 15:00 EST Telemedicine [facility] Hematology & Oncology [address] 021481 Alisson Carreon MD 111 [facility], Level [address] [place] [phone] 05/04/2024 10:15 EST Ancillary Procedure [facility] Cardiology - [address] [place] [address] 05/04/2024 11:30 EST Appointment [facility] Hematology & Oncology [address] [phone] 05/04/2024 12:00 EST Appointment [facility] Hematology & Oncology [address] [id number] 06/12/2024 13:00 EST Appointment [facility] Radiology CT - [address] [phone] documented as of this encounter Procedures Procedure Name Priority Date/Time Associated Diagnosis Comments NM LIVER WITH SPECT/CT Routine 05/13/2022 13:43 EST Liver metastases (HCC-CMS) (HCC) (HCC-CMS) documented in this encounter Results * NM LIVER WITH SPECT/CT (05/13/2022 13:43 [...] above interpretation andagree with the findings. David FORBES NM ORDER ANUSHA documented in this encounter Visit Diagnoses Diagnosis Liver metastases Secondary malignant neoplasm of liver documented in this encounter Administered Medications Inactive Administered Medications - up to 3 most recent administrations Medication Order MAR Action Action Date Dose Rate Site technetium (Tc-99m) macroaggregated albumin (MAA) injection 6 millicurie 6 millicurie, radiopharm IV, NOW X1, 1 dose, On Michelle 05/13/22 at 1245, Routine, Imaging Protocol Orders Given 05/13/2022 9:50 EST 1.1 millicuries documented in this encounter Orders Medications Ordered That Vj ht Not Have Been Administered Count Last Ordered Date First Ordered Date technetium (Tc-99m) macroagg regated albumin (MAA) injection 6 millicurie 1 05/13/2022 documented in this encounter Care Teams Bobbin Stripper Relationship Specialty Start Date End Date Linda Blancas MD [facility] [address] [place] [phone] PCP - General 01/06/11 Adolfo Carreno MD [address] [place] [phone] General Surgery 04/26/19 Augustina Colin MD PhD [address] [phone] Medical Oncology 04/26/19 documented as of this encounter
--- OUTSIDE RECORDS SUMMARY | 2024-03-20 14:48 | XMS_ITS | Encounter Summary ---
Author Organization [facility] Address [address] [place] [address] Care Team Providers Care Disease Case Manager Rn Name Role Phone Linda Blancas MD Primary Care Provider [phone] Adolfo Carreno MD Unavailable [phone] Augustina Colin MD PhD Unavailable Unavailable Encounter Details Date Type Department Care Team (Late st Contact Info) Description 04/09/2022 Orders Only [facility] Hematology & Oncology - [facility] [address] [place] [address] Mony Dewey, RN Social History Tobacco Use [...] mouth every 12 hours. 60 Tablet 3 04/09/2022 04/09/2022 documented in this encounter Plan of Treatment Upcoming Encounters Date Type Department Care Team (Late st Contact Info) Description 04/02/2024 10:[address] [facility] Interventional Radiology Unit [address] [place] [address] [phone] 04/02/2024 15:[address] [facility] Surgical Oncology - [address] [phone] Adolfo Carreno MD [address] [place] [address] 2 [place] [phone] 04/05/2024 9:30 EDT Telemedicine [facility] - [facility] Palliative Care Services [address] [place] [address] [phone] Chichi Woods MD [address] [place] [address], [address] [phone] 04/11/2024 15:00 EDT Telemedicine [facility] Hematology & Oncology [address] [phone] Alisson Carreon MD [address] [place] [phone] 04/13/2024 13:30 EDT Appointment [facility] Hematology & Oncology [address] [phone] 04/13/2024 14:00 EDT Appointment [facility] Hematology & Oncology - [address] [address] 04/16/2024 10:00 EST Telemedicine [facility] - [facility] Palliative Care Services [address] [place] [address] Chichi Woods MD [address] [place] [address], [address] [phone] 04/24/2024 9:00 EST Appointment [facility] Radiology CT Outpatient - [address] [address] 04/24/2024 11:[address] [facility] Breast Imaging - [address] [id number] 04/27/2024 12:00 EST Appointment [facility] Hematology & Oncology - [address] [address] 05/02/2024 15:00 EST Telemedicine [facility] Hematology & Oncology - [address] [phone] Alisson Carreon MD [address] [place] [address], [facility], [facility] [address] [place] [phone] 05/04/2024 10:[address] [facility] Cardiology [place] [address] [place] [address] 05/04/2024 11:30 EST Appointment [facility] Hematology & Oncology - [address] [address] 05/04/2024 12:00 EST Appointment [facility] Hematology & Oncology - [address] [phone] 06/12/2024 13:00 EST [facility] Radiology [facility] - [address] [phone] documented as of this encounter Visit Diagnoses Not on filedocumented in this encounter Discontinued Medications Medication Sig Discontinue Reason Start Date End Da te capecitabine (XELODA) 500 mg tablet Take 2 Tablets by mouth every 12 hours. Reorder 03/31/2022 04/09/2022 documented as of this encounter Additional Health Concerns Infection Onset Date Last Indicated Resolved Time R/O COVID-12/12/2023 12/12/2023 12/12/2023 15:3 5 EDT R/O COVID-19 01/08/2024 01/08/2024 01/08/2024 18:2 6 EDT R/O COVID-01/16/2024 01/16/2024 01/16/2024 17:5 0 EDT documented as of this encounter Care Teams Disease Case Manager Rn Relationship Specialty Start Date End Date Linda Blancas MD [facility] [address] [place] [address] PCP - General 01/06/11 Adolfo Carreno MD [address] [place] [phone] General Surgery 04/26/19 Augustina Colin MD PhD [address] [place] [phone] Medical Oncology 04/26/19 documented as of this encounter
--- OUTSIDE RECORDS SUMMARY | 2024-03-20 14:48 | XMS_ITS | Encounter Summary ---
Author Organization [facility] Address [address] [place] [address] Care Team Providers Care Drip Pumper Name Role Phone Linda Blancas MD Primary Care Provider [phone] Adolfo Carreno MD Unavailable [phone] Augustina Colin MD PhD Unavailable Unavailable Encounter Details Date Type Department Care Team (Late st Contact Info) Description 04/09/2022 Specialty Pharmacy [facility] - [facility] [address] [place], [place] [phone] Allen Day, [facility] Social History Tobacco Use Types [...] as of this encounter Progress Notes * Aisha Callaway - 04/09/2022 1340 EDT Specialty Pharmacy Documentation Medication: Capecitabine Clinic: Onc Reason for Encounter: Outreach Notes: New RX requested for dose decrease Follow up date: 04/12/22 Follow up reason: Outreach * Emily Oneal - 04/09/2022 1340 EDT [facility] Specialty Pharmacy Delivery Information Hours: Tuesday-Tuesday 8:30am - 5:00pm *Pharmacist available engineering inspection assistant 03/01 Delivery Service: [facility] Delivery Window: 10am - 2pm Date of Delivery: 04/16/22 Tracking # : [id number] documented in this encounter Plan of Treatment Upcoming Encounters Date Type Department Care Team (Late st Contact Info) Description 04/02/2024 10:30 EDT Appointment [facility] Interventional Radiology Unit [address] [place] [address] 04/02/2024 15:15 EDT Office Visit [facility] Surgical Oncology - [facility] [address] [place] [address] Adolfo Carreno MD 111 [facility], Level [address] [place] [phone] 04/05/2024 9:30 EDT Telemedicine [facility] Palliative Care Services [address] [place] [address] Chichi Woods MD [address] [phone] 04/11/2024 15:00 EDT Telemedicine [facility] Hematology & Oncology - [address] [phone] Alisson Carreon MD [address] [place] [address] 2 [place] [phone] 04/13/2024 13:30 EDT Appointment [facility] Hematology & Oncology - [address] [phone] 04/13/2024 14:00 EDT Appointment [facility] Hematology & Oncology [address] [id number] 04/16/2024 10:00 EST Telemedicine [facility] - [facility] Palliative Care Services [address] [place] [address] [phone] Chichi Woods MD [address] [place] [address], [place] [address] [place] [phone] 04/24/2024 9:00 EST Appointment [facility] Radiology CT Outpatient - [address] [id number] 04/24/2024 11:00 EST Appointment [facility] Breast Imaging - [address] [id number] 04/27/2024 12:00 EST Appointment [facility] Hematology & Oncology - [address] [phone] 05/02/2024 15:00 EST Telemedicine [facility] Hematology & Oncology - [address] [phone] Alisson Carreon MD [address] [place] [address] 2 [place] [phone] 05/04/2024 10:15 EST Ancillary Procedure [facility] Cardiology - [place] [address] 05/04/2024 11:30 EST Appointment [facility] Hematology & Oncology [address] [address] 05/04/2024 12:00 EST Appointment [facility] Hematology & Oncology [address] [address] 06/12/2024 13:00 EST Appointment [facility] Radiology CT - [address] [phone] documented as of this encounter Visit Diagnoses Not on filedocumented in this encounter Care Teams Drip Pumper Relationship Specialty Start Date End Date Linda Blancas MD [facility] [address] [place] [address] PCP - General 01/06/11 Adolfo Carreno MD [address] [place] [phone] General Surgery 04/26/19 Augustina Colin MD PhD [address] [place] [phone] Medical Oncology 04/26/19 documented as of this encounter
--- OUTSIDE RECORDS SUMMARY | 2024-03-20 14:48 | XMS_ITS | Encounter Summary ---
Author Organization [facility] Address [address] [place] [address] Care Team Providers Care Natural Foods Clerk Name Role Phone Linda Blancas MD Primary Care Provider [phone] Adolfo Carreno MD Unavailable [phone] Augustina Colin MD PhD Unavailable Unavailable Reason for Referral * Radiology Services (Routine/Next Available) - Authorization Not Required Specialty Diagnoses / Procedures Referred By Contac t Referred To Contact Nuclear Medicine Diagnoses Metastatic breast cancer Procedures NM BONE WHOLE BODY Augustina Colin MD PhD [facility] Referral ID Status Reason Start Date Expiration Date Visits Requested Visits Authorized [id number] Authorization Not Required 2 1 1 Reason for Visit * Reason Comments Follow-up Encounter Details Date Type Department Care Team (Late st Contact Info) Description 04/26/2022 13:30 EST Telemedicine [facility] Hematology & Oncology - [facility] [address] [place] [address] Augustina Colin MD PhD Metastatic breast cancer (HCC-CMS) (HCC) (HCC-CMS) (Primary [...] Notes * Augustina Colin MD PhD - 04/26/2022 1330 EST REASON FOR OFFICE VISIT: ??Discussion of [...] of ER+ DCIS. a. ??Ultrasound performed in [place]??identifying an irregular heterogeneous soft tissue mass measuring 1.2 x 1.2 x 1.5 cm. ?? 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 ??HER-2 1+ by IHC. ??ANNE MARIE revealed [...] breast tumor 07/07/17 and placement of tissue student outreach coordinator. ??1.9 cm tumor at time of surgery, well differentiated, with LVI present, and negative margins. G. Biopsy left cervical LN 02/11/20 - consistent with metastatic adenocarcinoma consistent with breast primary H. Fulvestrant initiated 03/06/20; abemaciclib initiated 03/31/20 discontinued 06/01 due to diarrhea; palbociclib initiated March 2021 I. Capecitabine initiated December 2021 J. Y90 infusion to liver by Dr Moya 04/08/22 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 Capecitabine was held brefly for her liver procedure. She had Y90 ablation with Dr. Moya the end of March. She tolerated it well for the most part. She had some pain after. This was resolved on ibuprofen. She restarted capecitabine today. Her hands and feet are healed. She will be taking 1000 mg BID.She has the 2nd part of the liver ablation on May 14. ROS: A 10 point review of systems [...] 2 Tablets by mouth every 12 hours. ??? gabapentin (NEURONTIN) 100 mg capsule Take 2 Caps by mouth 2 times daily. (Patient taking differently: Take 600 mg by mouth 2 times daily. Takes 300 mg qam and pm and 600 mg qhs) ??? ibuprofen (MOTRIN) 200 mg tablet Take 400 mg by mouth as needed. ??? MULTIVITS W-CA,FE,OTHER MIN (WOMEN'S DAILY FORMULA ORAL) Take by mouth daily. ??? mv-mn/C/glutamin/lysin/mvcg421 (AIRBORNE, ASCORBATE SODIUM, ORAL) Take by mouth as needed. ??? omeprazole (PRILOSEC) 20 mg capsule Take 20 mg by mouth daily. ??? ondansetron (ZOFRAN-ODT) 8 mg disintegrating tablet Take 1 Tablet by mouth every 8 hours as needed for Nausea. ??? oxyCODONE (ROXICODONE) 5 mg immediate release tablet Take 1 Tablet by mouth every 4 hours as needed for Pain. Daily Max: 30 mg ??? palbociclib 100 mg capsule Take 100 mg by mouth daily. Take 100 mg daily days 1-21 and then 7 days off. Total cycle length 28 days before restarting. (Patient not taking: Reported on 04/05/2022) ??? RED YEAST RICE EXTRACT ORAL Take [...] this visit. Estimated body mass index is 25.78 kg/m?? as calculated from the following: Height as of 04/08/22: 152.4 cm (60). Weight as of 04/08/22: 59.9 kg (132 lb). ECOG Performance Status: 0 General: Comfortable, cooperative and in no apparent distress NEURO: Alert and oriented x 3; Grossly neurologically intact DIAGNOSTIC DATA No visits with results within 1 Day(s) from this visit. Latest known visit with results is: Lab Requisition on 03/30/2022 Component Date Value Ref Range Status ??? Addendum Comment 03/30/2022 Final Value:This result contains rich text formatting which cannot be displayed here. ??? Original Case ID 03/30/2022 Final Value:This result contains rich text formatting which cannot be displayed here. ??? Original Case Specimen Source 03/30/2022 Final Value:This result contains rich text formatting which cannot be displayed here. ??? Original Case Date of Service 03/30/2022 Final Value:This result contains rich text formatting which cannot be displayed here. ??? Attestation 03/30/2022 Final Value:This result contains rich text formatting which cannot be displayed here. ASSESSMENT: ??Ms Bernstein is a 61-year-old female with metastatic breast cancer.?? She had been currently receiving fluvesterant and palbociclb. The MR of the abdomen indicates progression of liver lesions. She has been on capecitabine for approximatley 3 months. Currently Capecitabine 1500mg am and 1500mg pm 1 week on 1 week off. She still has significant hand issues with cracking and burning. We held capecitabine for the liver ablation with Dr Moya. She restarted it today at a lower dose today. 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 Zolendronic acid to every 3 mos for now. She takes a vitamin D supplement. PLAN: 1. Capecitabine 1000mg am and 1000mg pm for the next two weeks. If she starts to get pain in her feet and hands again after 1 week we will stop at 1 week. Then restart capecitabine 1000 mg a.m. 1000 mg p.m. on a 1 week on 1 week off basis starting May 24 2. Zoledronic acid q 3mo, next due end of May 2022; Continued Vit D supplementation 3. Nuclear bone scan in July and we will check a CA 27-29 on June 10 when she gets her zoledronic acid. 4. Continued follow-up with Dr. Moya 5. FUR July after nuclear bone scan TELEMEDICINE VIDEO VISIT Today's visit was provided through telemedicine video conferencing: I have reviewed the appropriateness of using video technology with the patient with regards to today's visit. The location of the patient : Home Patient location state: Visit Location State: [place] The location of the provider: Office Provider location state: Visit Location State: [place] The following people and their roles were present for today's visit: Appointment Provider: Augustina Colin MD PhD Augustina Colin MD PhD documented in this encounter Plan of Treatment Upcoming Encounters Date Type Department Care Team (Late st Contact Info) Description 04/02/2024 10:30 EDT Appointment [facility] Interventional Radiology Unit [address] [place] [phone] 04/02/2024 15:15 EDT Office Visit [facility] Surgical Oncology - [address] 840201 Adolfo Carreno MD [address] [place] [address] 2 [place] [phone] 04/05/2024 9:[address] [facility] - [facility] Palliative Care Services [address] [place] [address] [phone] Chichi Woods MD [address] [place] [address], [address] [phone] 04/11/2024 15:00 EDT Telemedicine [facility] Hematology & Oncology [address] [phone] Alisson Carreon MD [address] [place] [address] 2 [place] [phone] 04/13/2024 13:30 EDT Appointment [facility] Hematology & Oncology [address] [phone] 04/13/2024 14:00 EDT Appointment [facility] Hematology & Oncology - [address] [phone] 04/16/2024 10:[address] [facility] - [facility] Palliative Care Services [address] [place] [address] Chichi Woods MD 111 [facility], [address] [phone] 04/24/2024 9:00 EST Appointment [facility] Radiology CT Outpatient - [address] [id number] 04/24/2024 11:00 EST Appointment [facility] Breast Imaging - [facility] [address] [place], [place] [address]81 04/27/2024 12:00 EST Appointment [facility] Hematology & Oncology - [address] [phone] 05/02/2024 15:00 EST Telemedicine [facility] Hematology & Oncology - [address] [phone] Alisson Carreon MD [address] [place] [address], Level [address] [place] [phone] 05/04/2024 10:15 EST Ancillary Procedure [facility] Cardiology - [place] [address] 05/04/2024 11:30 EST Appointment [facility] Hematology & Oncology - [address] [phone] 05/04/2024 12:00 EST Appointment [facility] Hematology & Oncology - [address] [address] 06/12/2024 13:00 EST [facility] Rad[facility] - [address] [id number] documented as of this encounter Results * [...] Augustina Colin MD PhD IMG NM ORDERABLES * (ABNORMAL) CA 27.29 (06/10/2022 9:23 EST) CA 27.29 76.8(H) <38.0 U/mL 06/11/2022 10:01 EST [facility] Comment: NOTE: Serum CA 27.29 concentration should not be interpreted as absolute evidence for the presence or absence of malignant disease. Assayed on Siemens Boyibangaur XPT using chemiluminescent technology. ??Values obtained by using different assay methods cannot be used interchangeably. Blood VENOUS BLOOD / Unknown Venipuncture / Unknown 06/10/2022 9:23 EST 06/10/2022 11:19 EST Augustina Colin MD PhD CHEMISTRY & BLOOD GA S ORDERABLES [facility] [address] [place] [address] documented in this encounter Visit Diagnoses Diagnosis Metastatic breast cancer- Primary Metastatic breast cancer documented in this encounter Care Teams Natural Foods Clerk Relationship Specialty Start Date End Date Linda Blancas MD [facility] [address] [place] [address] PCP - General 01/06/11 Adolfo Carreno MD [address] [place] [phone] General Surgery 04/26/19 Augustina Cloin MD PhD [address] [place] [phone] Medical Oncology 04/26/19 documented as of this encounter
--- OUTSIDE RECORDS SUMMARY | 2024-03-20 14:48 | XMS_ITS | Encounter Summary ---
Author Organization [facility] Address [address] [place] [address] Care Team Providers Care Hearing Aid Repairer Name Role Phone Linda Blancas MD Primary Care Provider [phone] Adolfo Carreno MD Unavailable [phone] Augustina Colin MD PhD Unavailable Unavailable Encounter Details Date Type Department Care Team (Late st Contact Info) Description 05/10/2022 Specialty Pharmacy [facility] - [facility] [address] [place], [place] [id number] [place], [facility] Social History Tobacco Use Types Packs/Day [...] Appointment [facility] Interventional Radiology Unit [address] [place] [address] [phone] 04/02/2024 15:15 EDT Office Visit [facility] Surgical Oncology - [address] [phone] Adolfo Carreno MD [address] [place] [address] [phone] 04/05/2024 9:30 EDT Telemedicine [facility] - [facility] Palliative Care Services [address] [place] [address] [phone] Chichi Woods MD [address] [place] [address] [phone] 04/11/2024 15:00 EDT Telemedicine [facility] Hematology & Oncology [address] 085311 Alisson Carreon MD [address] [place] [address] [phone] 04/13/2024 13:30 EDT Appointment [facility] Hematology & Oncology [address] [phone] 04/13/2024 14:00 EDT Appointment [facility] Hematology & Oncology [address] [id number] 04/16/2024 10:00 EST Telemedicine [facility] - [facility] Palliative Care Services [address] [place] [address] [phone] Chichi Woods MD [address] [place] [address], [address] [place] [phone] 04/24/2024 9:00 EST Appointment [facility] Radiology CT Outpatient - [address] [id number] 04/24/2024 11:00 EST Appointment [facility] Breast Imaging - [facility] [address] [place], [place] [phone] 04/27/2024 12:00 EST Appointment [facility] Hematology & Oncology - [address] [phone] 05/02/2024 15:00 EST Telemedicine [facility] Hematology & Oncology - [address] [phone] Alisson Carreon MD [address] [place] [address], Level [address] [place] [phone] 05/04/2024 10:15 EST Ancillary Procedure [facility] Cardiology - [address] [place], [place] [phone] 05/04/2024 11:30 EST Appointment [facility] Hematology & Oncology - [address] [phone] 05/04/2024 12:00 EST Appointment [facility] Hematology & Oncology [address] [phone] 06/12/2024 13:00 EST Appointment [facility] Radiology CT - [address] [phone] documented as of this encounter Visit Diagnoses Not on filedocumented in this encounter Care Teams Hearing Aid Repairer Relationship Specialty Start Date End Date Linda Blancas MD [facility] [address] [place] [address] PCP - General 01/06/11 Adolfo Carreno MD [address] [place] [address], [facility] [address] [place] [phone] General Surgery 04/26/19 Augustina Colin MD PhD [address] [place] [address], [address] [phone] Medical Oncology 04/26/19 documented as of this encounter
--- OUTSIDE RECORDS SUMMARY | 2024-03-20 14:48 | XMS_ITS | Encounter Summary ---
Author Organization [facility] Address [address] [place] [address] Care Team Providers Care Management Analyst Name Role Phone Linda Blancas MD Primary Care Provider [phone] Adolfo Carreno MD Unavailable [phone] Augustina Colin MD PhD Unavailable Unavailable Reason for Referral * Radiology Services (Routine/Next Available) - Authorization Not Required Specialty Diagnoses / Procedures Referred By Contac t Referred To Contact Nuclear Medicine Diagnoses Liver metastasis Procedures NM TUMOR LOCALIZATION WITH SPECT/CT David Moya MD [address] [place] [phone] [facility] Referral ID Status Reason Start Date Expiration Date Visits Requested Visits Authorized [id number] Authorization Not Required 03/16/2022 1 1 Reason for Visit * Radiology Services (Routine/Next Available) - Authorization Not Required Specialty Diagnoses / Procedures Referred By [facility] Referred To Contact Nuclear Medicine Diagnoses Liver metastasis Procedures NM TUMOR LOCALIZATION WITH SPECT/CT David Moya MD [address] [place] [phone] [facility] Referral ID Status Reason Start Date Expiration Date Visits Requested Visits Authorized [id number] Authorization Not Required 03/16/2022 1 1 Encounter Details Date Type Department Care Team (Latest Contact Info) Description 04/08/2022 7:02 EDT - 04/08/2022 23:59 EDT Hospital Encounter [facility] Radiology Nuclear [place] [address] Liver metastasis (HCC-CMS) (HCC) (HCC-CMS) Discharge Disposition: [...] Tablets by mouth as needed. 12/07/2023 mv-mn/C/glutamin/lysin/h avs576 (AIRBORNE, ASCORBATE SODIUM, ORAL) Take by mouth [...] Appointment [facility] Interventional Radiology Unit [address] [place] [address] [phone] 04/02/2024 15:15 EDT Office Visit [facility] Surgical Oncology - [facility] [address] [place], [place] 980251 Adolfo Carreno MD 111 [facility], Level 2 [place] [phone] 04/05/2024 9:30 EDT Telemedicine [facility] Palliative Care Services [address] [place] [address] [phone] Chichi Woods MD [address] [place] [address] [phone] 04/11/2024 15:00 EDT Telemedicine [facility] Hematology & Oncology - [address] [address] Alisson Carreon MD [address] [place] [address], [address] [place] [phone] 04/13/2024 13:30 EDT Appointment [facility] Hematology & Oncology [address] [address] 04/13/2024 14:00 EDT Appointment [facility] Hematology & Oncology [address] [address] 04/16/2024 10:00 EST Telemedicine [facility] Palliative Care Services [address] [place] [address] [phone] Chichi Woods MD [address] [place] [address] [phone] 04/24/2024 9:00 EST Appointment [facility] Radiology CT Outpatient - [address] [id number] 04/24/2024 11:00 EST Appointment [facility] Breast Imaging - [address] [phone] 04/27/2024 12:00 EST Appointment [facility] Hematology & Oncology [address] [id number] 05/02/2024 15:00 EST Telemedicine [facility] Hematology & Oncology [address] [phone] Alisson Carreon MD 111 [facility], [facility], Level [address] [place] [phone] 05/04/2024 10:15 EST Ancillary Procedure [facility] Cardiology - [address] [place] [address] 05/04/2024 11:30 EST Appointment [facility] Hematology & Oncology [address] [phone] 05/04/2024 12:00 EST Appointment [facility] Hematology & Oncology [address] [phone] 06/12/2024 13:00 EST Appointment [facility] Radiology CT - [facility] [address] [place], [place] [phone] documented as of this encounter Procedures Procedure Name Priority Date/Time Associated Diagnosis Comments NM TUMOR LOCALIZATION WITH SPECT/CT Routine 04/08/2022 14:44 EDT Liver metastasis (HCC-CMS) (HCC) (HCC-CMS) documented in this encounter Results * NM TUMOR LOCALIZATION WITH SPECT/CT (04/08/2022 14:44 EDT) Anatomical Region Laterality Modality Nuclear Medicine 04/08/2022 15:2 2 EDT Impressions 04/08/2022 15:22 EDT Treatment dose in right lobe of the liver. No evidence of extrahepatic intra-abdominal activity. Unchanged appearance of lytic osseous metastases. I have personally reviewed the images and the above interpretation and agree with the findings. Narrative 04/08/2022 15:22 EDT NM TUMOR LOCALIZATION WITH SPECT/CT ??04/08/2022 1:00 PM Clinical History/Comments: Y90 Comparison: IR embolization 04/08/2022, CT abdomen pelvis 03/31/2022, MR abdomen 02/25/2022 Technique: SPECT/CT images of the upper abdomen were obtained after the patient was previously injected intra-arterially in the right hepatic artery Y-90 microspheres. Findings: There is increased radiotracer uptake in the entire right hepatic lobe, with more intense uptake in segments 6 and 7. No intra-abdominal extrahepatic activity identified. Incidental findings on the non-enhanced CT demonstrate: Unchanged lytic osseous metastases. Unchanged posterior lumbar fusion and degenerative changes. Bilateral breast implants, Atherosclerosis in the abdominal aorta, without aneurysmal dilatation. The inconspicuous hepatic lesions are better seen on recent CT and MRI. Procedure Note Sonny Georges MD - 04/08/2022 NM TUMOR LOCALIZATION WITH SPECT/CT 04/08/2022 1:00 PM Clinical History/Comments: Y90 Comparison: IR embolization 04/08/2022, CT abdomen pelvis 03/31/2022, MRabdomen 02/25/2022 Technique: SPECT/CT images of the upper abdomen were obtained after the patient waspreviously injected intra-arterially in the right hepatic artery Y-90microspheres. Findings: There is increased radiotracer uptake in the entire right hepatic lobe,with more intense uptake in segments 6 and 7. No intra-abdominal extrahepatic activity identified. Incidental findings on the non-enhanced CT demonstrate: Unchanged lyticosseous metastases. Unchanged posterior lumbar fusion and degenerativechanges. Bilateral breast implants, Atherosclerosis in the abdominalaorta, without aneurysmal dilatation. The inconspicuous hepatic lesionsare better seen on recent CT and MRI. IMPRESSION Treatment dose in right lobe of the liver. No evidence of extrahepatic intra-abdominal activity. Unchanged appearance of lytic osseous metastases. I have personally reviewed the images and the above interpretation andagree with the findings. David Moya MD G NM ORDER ANUSHA documented in this encounter Visit Diagnoses Diagnosis Liver metastasis Secondary malignant neoplasm of liver documented in this encounter Care Teams Management Analyst Relationship Specialty Start Date End Date Linda Blancas MD [address] [place] [address] 30 [place] [address] PCP - General 01/06/11 Adolfo Carreno MD [address] [place] [address] [address] [place] [phone] General Surgery 04/26/19 Augustina Colin MD PhD [address] [place] [address] 2 [place] [phone] Medical Oncology 04/26/19 documented as of this encounter
--- OUTSIDE RECORDS SUMMARY | 2024-03-20 14:48 | XMS_ITS | Encounter Summary ---
Author Organization [facility] Address [address] [place] [address] Care Team Providers Care Sawmill Manager Name Role Phone Linda Blancas MD Primary Care Provider [phone] Adolfo Carreno MD Unavailable [phone] Augustina Colin MD PhD Unavailable Unavailable Reason for Visit * Reason Onset Date Comments Follow-up 04/09/2022 Encounter Details Date Type Department Care Team (Late st Contact Info) Description 04/09/2022 Telephone [facility] Interventional Radiology - Main [place] [address] [place], [place] [phone] Marisol Cunha RN Follow-up Social History Tobacco [...] Encounter - Marisol Cunha RN - 04/09/2022 1041 EDT Call to patient s/p y-90 mapping and sirsphere treatment on 04/[address] Moya and Dr Fleming Patient reports having 8/10 RUQ pain and epigastric pain. She is taking 5 mg oxycodone as prescribed with no relief. states he is doubled over in pain and cant relax or get comfortable. Denies fever, chills or vomiting. Reports some nausea and decreased appetite. Encouraged small sips of fluids and bland food such as toast and crackers. She will take her scheduled omeprazole today. DC instructions told her to take protonix but will check w team if ok to take routine omeprazole. Left wrist puncture site is CDI, slight bruising, denies pain or s/s of infection. Dressing removedand band aid applied. Plan: will reach out to team for pain management options. CMP, INR, CBC ordered to be drawn in 2 weeks. Left lobe y-90 in 4-6 weeks documented in this encounter Plan of Treatment Upcoming Encounters Date Type Department Care Team (Late st Contact Info) Description 04/02/2024 10:30 EDT Appointment [facility] Interventional Radiology Unit [address] [place], [place] [phone] 04/02/2024 15:15 EDT Office Visit [facility] Surgical Oncology - [facility] [address] [place], [place] [phone] Adolfo Carreno MD 111 [facility], [facility], Level [address] [place] [phone] 04/05/2024 9:30 EDT Telemedicine [facility] Palliative Care Services [address] [place] [address] [phone] Chichi Woods MD [address] [place] [address] [phone] 04/11/2024 15:00 EDT Telemedicine [facility] Hematology & Oncology - [address] [phone] Alisson Carreon MD [address] [place] [address], [address] [place] [phone] 04/13/2024 13:30 EDT Appointment [facility] Hematology & Oncology [address] [address] 04/13/2024 14:00 EDT Appointment [facility] Hematology & Oncology [address] [address] 04/16/2024 10:00 EST Telemedicine [facility] Palliative Care Services [address] [place] [address] [phone] Chichi Woods MD [address] [place] [address] [phone] 04/24/2024 9:00 EST Appointment [facility] Radiology CT Outpatient - [address] [id number] 04/24/2024 11:00 EST Appointment [facility] Breast Imaging - [address] [phone] 04/27/2024 12:00 EST Appointment [facility] Hematology & Oncology [address] [id number] 05/02/2024 15:00 EST Telemedicine [facility] Hematology & Oncology [address] 337651 Alisson Carreon MD [address] [place] [address] [phone] 05/04/2024 10:15 EST Ancillary Procedure [facility] Cardiology - [address] [place] [address] 05/04/2024 11:30 EST Appointment [facility] Hematology & Oncology [address] [phone] 05/04/2024 12:00 EST Appointment [facility] Hematology & Oncology [address] [phone] 06/12/2024 13:00 EST Appointment [facility] Radiology CT - [address] [phone] documented as of this encounter Visit Diagnoses Not on filedocumented in this encounter Care Teams Sawmill Manager Relationship Specialty Start Date End Date Linda Blancas MD [address] [place] [address] PCP - General 01/06/11 Adolfo Carreno MD [address] [place] [phone] General Surgery 04/26/19 Augustina Colin MD PhD [address] [place] [phone] Medical Oncology 04/26/19 documented as of this encounter
--- OUTSIDE RECORDS SUMMARY | 2024-03-20 14:48 | XMS_ITS | Encounter Summary ---
Author Organization [facility] Address [address] [place] [address] Care Team Providers Care Program Director Group Work Name Role Phone Linda Blancas MD Primary Care Provider [phone] Adolfo Carreno MD Unavailable [phone] Augustina Colin MD PhD Unavailable Unavailable Reason for Referral * Radiology Services (Routine/Next Available) - Closed Specialty Diagnoses / Procedures Referred By Doug hearn Referred To Contact Radiology Diagnoses Liver metastasis Procedures MR ABDOMEN W WO FILIBERTO Moya, David Rowley MD [address] [facility], [facility] [address] [place] [address] [facility] Referral ID Status Reason Start Date Expiration Date Visits Re quested Visits Authorized [id number] Closed 07/30/2022 01/26/2023 1 1 * Radiology Services (Routine/Next Available) - Authorization Not Required Specialty Diagnoses / Procedures Referred By Doug hearn Referred To Contact Diagnoses Liver metastasis Procedures IR EMBOLIZATION TX VASCULAR EMBOLIZE/OCCLUDE ORGAN TUMOR INFARCT [place] [address] [address] [place] [address] [facility] Referral ID Status Reason Start Date Expiration Date Visits Requested Visits Authorized [id number] Authorization Not Required 2 1 1 Reason for Visit * Radiology Services (Routine/Next Available) - Authorization Not Required Specialty Diagnoses / Procedures Referred By Doug t Referred To Contact Diagnoses Liver metastasis Procedures IR EMBOLIZATION TX VASCULAR EMBOLIZE/OCCLUDE ORGAN TUMOR INFARCT [place] [address] [address] [place] [address] [facility] Referral ID Status Reason Start Date Expiration Date Visits Requested Visits Authorized [id number] Authorization Not Required 2 1 1 Encounter Details Date Type Department Care Team (Late st Contact Info) Description 05/14/2022 6:34 EST - 05/14/2022 6:37 EST Hospital Encounter [facility] Interventional Radiology Unit [address] [place] [address] David Moya MD [address] [facility], Level [address] [place] [address] Elisa Barker MD [address] [place] [address] Liver metastasis (HCC-CMS) (HCC) (HCC-CMS); Malignant neoplasm of right female breast, [...] this encounter Discharge Instructions * Discharge Instructions* Mira Cho RN - 05/14/2022 10:17 EST [facility] Interventional Radiology Patient Discharge Education Radioembolization Therapy (SirSpheres and Theraspheres) Procedure Wound Site - right Radial Dr. David Moya MD has completed your Y-90 Treatment Radioembolization is used to treat primary liver [...] a small catheter is inserted into an artery, usually in the upper thigh region, and fed up to the liver. Special dye is first injected which allows pictures to be taken and the vessels surrounding the tumor to be visualized. Then the beads are injected into the liver directed at the tumor. EXPECTED SIDE EFFECTS: All of the following signs are part of a normal recovery after Chemoembolization. Within a month after the procedure you should be back to your usual self. Right upper abdominal pain for the first few days to weeks. It may radiate to the shoulder or back.You will be given medicine to help control the pain. This pain usually gets better within the firstweek. Extreme fatigue or tiredness for two to four weeks after the procedure. A poor appetite which may result in weight loss before your appetite returns - continue to eat evenif you have no appetite. Small, frequent meals are the best way to prevent weight loss. It is normal to have a bruise and soreness where the angiogram catheter went in. Please drink extra fluids today (6-8 glasses). This will encourage the excretion of the contrast dye material. Do not drive or make any legal decisions today as you have received medications. If you feel a tingling sensation or lack of feeling in the affected extremity, call your local doctor. If you note any signs of bleeding, such as bulging under the skin the size of a golf ball, put direct pressure to the area, call your doctor, and go to the nearest emergency room or call 911 for assistance. You may resume all of your normal dietary and medication requirements. Leave the sterile dressing on for 24 hours, then shower and clean the area daily. Place a clean Band-Aid over the site each day for 5 days. Do not take a tub bath, go in a hot tub or submerge in water for 5 days Do not put lotions or powder on the area for 5 days. Report any signs of infection (redness, swelling, discharge and fever) to your doctor. Refrain from strenuous activity for at least 48 hours. Follow up with your Primary Care Physician. The results of your Angiogram will be sent directly to your physician within 3 working days. CLOSURE [...] medicines: 1. Protonix (pantoprazole), a stomach acid collection administrator. Take this every day for 1 month [...] hours. This medicine causes drowsiness Follow Up: We want to see you in our clinic for follow up 1 month after treatment. We also want to see follow up labs again at 1 month. These labs can be done on the day of your clinic visit here at [facility] or a few days before if you choose to have them drawn by your home. Exact timing of this visit is not critical. We will call you to schedule this, but if you don???t hearfrom us within two weeks of treatment, please call [phone] to set up this appointment. We recommend calling your liver doctor/oncologist to set up a follow up appointment after you are discharged from the hospital. Every doctor is different in when they want to see their patients aftertreatment, but at a minimum, we would like you seen shortly after our one month follow up visit. When to Get Medical and Emergency Help: If you have a temperature over 101.0??F If your pain is not controlled Your nausea is so severe you cannot keep down any food or fluids You have questions about your treatment or new prescriptions You have pain where the catheter was placed that is worsening more than improving You have any other symptoms you are concerned about Go to your nearest Emergency Room: Your catheter site starts bleeding and will not stop after 10 minutes of firm pressure You have shaking chills or a temperature over 102??F IF YOU HAVE ANY QUESTIONS OR CONCERNS REGARDING THE PROCEDURE, PLEASE CALL THE [facility] INTERVENTIONAL RADIOLOGY AT . SOMEONE IS [...] Tablets by mouth as needed. 12/07/2023 mv-mn/C/glutamin/lysin/h [id number] (AIRBORNE, ASCORBATE SODIUM, ORAL) Take by mouth [...] Dispensed Refills Start Date End Da te oxyCODONE (ROXICODONE) 5 mg immediate release tablet Take 1 Tablet by mouth every 4 hours as needed for Pain. Daily Max: 30 mg 9 Tablet 05/14/2022 05/27/2022 ondansetron (ZOFRAN-ODT) 8 mg disintegrating tablet Take 1 Tablet by mouth every 8 hours as needed for Nausea. 30 Tablet 05/14/2022 09/22/2023 documented in this encounter Discharge Disposition Disposition Code Departure Means Destination Home or Self Care documented in this encounter Progress Notes * Karen Mckeon RN - 05/14/2022 0700 EST Have you had any of the following [...] admission vital signs assessment for temperature. * Mira Cho RN - 05/14/2022 0700 EST Procedure: Y90 Infusion Patient received from CVU 1 to IR 24 at 0844. Consent and patient name/ verified using armband and verbally. Patient is [...] table, safety straps in place. VS assessed. Time out completed with all staff in room prior to the start of procedure (EFF, JAP, JRM, and Dr. Moya as supervising provider). Sterile prep of Left wrist with duraprep by EFREN in the usual sterile fashion in compliance with manufacturers recommendation. Access: Ultrasound guidance utilized to access left radial artery, access confirmed under fluoro, 5Fr. arterial sheath placed, radial access cocktail administered intra-arterially by Dr. Moya, 2.5 mg of IA Verapamil, 200 mcg of IA Nitro, 4000 units of IA Heparin; fluoro continued. Imaging/Intervention: Y90 particles infused into the vessel per manufacturing instructions and under the guidance of the Radiology physicist, Matt Benton. Closure: 5 Fr sheath removed, TR Band compression device placed at 1023 and inflated with 14 mLs ofair, homeostasis achieved. Puncture site is clean/dry. Procedure completed by Dr. Moya as supervising provider. Procedure well tolerated by patient, vital signs stable. Medication administration IV Versed 3 mg IV Fentanyl 150 mcg Radial Cocktail IA Verapamil 2.5 mg IA Nitro 200 mcg IA Heparin 4000 units Follow up: Please release sign & held post procedure orders. Begin to remove air every 15 minutes from the TR Band at 1123. Discharge instructions placed in the patient's chart. Report given to CVU RN on.Discharge instructions to be reviewed with the patient by the discharging RN. Patient transferred in stable condition. * Stefani Davsi, RN - 05/14/2022 0700 EST Sunshine Pleitez arrived to CVU #10 via stretcher s/p Transarterial radioembolization of the liver . Alert and oriented x3. Pt denies new pain. TR band has been removed as ordered and per protocol Pt completed nuclear medicine imagining. After visit summary reviewed, pt denies need for further questions or education at this time. Prescriptions given. Patient OOB, no complaints of pain, nausea, lightheadedness or dizziness. Orthostatic BPs within range for patient. IV removed prior to discharge. Patient discharged from CVU via with very supportive family. documented in this encounter H&P Notes * David Moya MD - 05/14/2022 0700 EST Sedation for Procedure History & Physical Date: 05/14/2022 Time: 8:40 Location: Planned Procedure: Radioembolization of the liver Chief Complaint/Indications for Procedure: Metastases History: Previous Complication with Sedation and/or Anesthesia? No Allergies: Allergies Allergen Reactions ??? Amoxicillin Other (See Comments) and Rash Red rash ??? Sulfa (Sulfonamide Antibiotics) Hives Light lavender rash Current Medications: (Not in a hospital admission) Past Medical History: Past Medical History: Diagnosis Date ??? Acquired [...] & vomiting ??? Numbness ??? Wears glasses Social History: Past Surgical History: Procedure Laterality Date ??? BACK SURGERY December 2011 L3 - S1 spinal decompression and fusion - pt has hardware in place-[place] no complications ??? BREAST RECONSTRUCTION 01/30/2004 subpectoral implant - [place] no complications ??? BREAST RECONSTRUCTION 05/2018 right - [place] no complications ??? BREAST SURGERY 01/30/2004 Right mastectomy - [place] no complications ??? BREAST SURGERY 08/2018 arc and gas welder placed right breast - [place] no complications ??? CARPAL TUNNEL RELEASE 200705/07/2019 beir block - no complications ??? FOOT SURGERY 05/2021 right big toe fused, right little toe screw ??? LIPOMA RESECTION 200005/07/2019 [place] no complications ??? MASTECTOMY Right ??? TX INSJ/RPLCMT BREAST IMPLANT Feb MASTECTOMY Bilateral 05/30/2019 Exchange right tissue arc and gas welder to silicone implant, exchange of left implant for matching performedby Tylor Boss MD at [facility] OR Social History Tobacco Use ??? Smoking status: [...] 36 ??? Cancer Paternal Aunt 35 breast Review of Systems as pertinent: Physical: Vital Signs: BP (!) 154/74 (BP Cuff Location: Left arm, BP Patient Position: Semi fowlers) Temp 36 ??C (96.8 ??F) (Temporal) Resp 18 Ht 152.5 cm (60.05) Wt 58.5 kg (129 lb) SpO2 100% BMI25.15 kg/m?? Heart Examination: Cardiac Regularity: Regular Respiratory Examination: Breath Sounds Right: Clear Breath Sounds Left: Clear Additional physical exam related to the proposed procedure, patient activity, disease state and treatment as pertinent: Assessment: Previous complications with sedation or anesthesia?: No Airway Concerns: None/NA Anesthesia Classification: ASA 3 Plan: Appropriate for sedation Fasting Time: Time of last liquid intake: 514 Date of Last Liquid Intake: 05/14/22 Time of last solid intake: 2099 Date of last solid intake: 05/13/22 Patient Appropriate Candidate for Planned Sedation?: Yes David Moya MD 05/14/2022 8:40 documented in this encounter Procedure Notes * David Moya MD - 05/14/2022 0700 EST INTERVENTIONAL RADIOLOGY BRIEF PROCEDURE NOTE Radiologist: Griffin Procedure(s) Performed: Transarterial radioembolization of the liver Indication/Pre-procedure diagnosis: Liver metastases Post-procedure diagnosis: Same Condition: Stable Anesthesia: Local with Sedation Approach: Left radial Medications: IV Versed and fentanyl and local lidocaine 1% Contrast: 20 cc Fluoro time: 7 min EBL: Minimal Specimens: None Findings: Successful Y90 to left lobe of the liver. A time-out was completed prior to procedure verifying correct patient, procedure, site, positioning, and special equipment if applicable. Complications: None Recommendations: Per orders. Please refer to final dictated report (Chart Review, Imaging tab in PRISM) for complete findings and recommendations. Roosevelt Moya MD Interventional Radiologist Pager #[phone] documented in this encounter Plan of Treatment Upcoming Encounters Date Type Department Care Team (Late st Contact Info) Description 04/02/2024 10:30 EDT Appointment [facility] Interventional Radiology Unit [address] [place] [address] [phone] 04/02/2024 15:15 EDT Office Visit [facility] Surgical Oncology - [address] [phone] Adolfo Carreno MD [address] [place] [address] [address] [place] [phone] 04/05/2024 9:30 EDT Telemedicine [facility] Palliative Care Services [address] [place] [address] [phone] Chichi Woods MD [address] [place] [phone] 04/11/2024 15:00 EDT Telemedicine [facility] Hematology & Oncology [address] [phone] Alisson Carreon MD [address] [place] [phone] 04/13/2024 13:30 EDT Appointment [facility] Hematology & Oncology [address] [phone] 04/13/2024 14:00 EDT Appointment [facility] Hematology & Oncology [address] [phone] 04/16/2024 10:00 EST Telemedicine [facility] - [facility] Palliative Care Services [address], [place] [address] Chichi Woods MD 111 [facility], [address] [phone] 04/24/2024 9:00 EST Appointment [facility] Radiology CT Outpatient - [address] [id number] 04/24/2024 11:00 EST Appointment [facility] Breast Imaging - [facility] [address] [phone] 04/27/2024 12:00 EST Appointment [facility] Hematology & Oncology - [address] [phone] 05/02/2024 15:00 EST Telemedicine [facility] Hematology & Oncology - [address] [phone] Alisson Carreon MD [address] [place] [address], [facility], Level [address] [place] [phone] 05/04/2024 10:15 EST Ancillary Procedure [facility] Cardiology - [place] [address] 05/04/2024 11:30 EST Appointment [facility] Hematology & Oncology - [address] [id number] 05/04/2024 12:00 EST Appointment [facility] Hematology & Oncology [address] [phone] 06/12/2024 13:00 EST Appointment [facility] Radiology CT - [address] [phone] documented as of this encounter Procedures Procedure Name Priority Date/Time Associated Diagnosis Comments IR EMBOLIZATION Routine 05/14/2022 10:34 EST Liver metastasis (HCC-CMS) (HCC) (HCC-CMS) documented [...] Symptoms/Comments: ?? Liver mets s/p Y90 Technique: Sr-csj-yma-of-phase, T2-weighted, diffusion weighted images were followed by [...] and Symptoms/Comments: Liver mets s/p Y90 Technique: Lt-csv-mtp-of-phase, T2-weighted, diffusion weighted images were followedby dynamic gadolinium enhanced T1 fat-suppressed gradient echo images ofthe abdomen. Subtraction imaging performed. Comparison: 02/25/2022,, 11/23/2021. CT angiogram 03/31/2022. Whole-body bone scan07/20/2022 showing abnormal activity most of which outside of abdominalregion. Findings: Lower chest: Partially included bilateral breast implants. No effusions. Hepatobiliary: Previously seen foci of restricted diffusion on prior [id number] imaging are no longer apparent. Small 7 mm lesion with mildperipheral enhancement and no central enhancement right lobe, measured 1.2cm on prior.. There is mild heterogeneous enhancement of the liverparenchyma, new compared to prior, with new areas sheetlike increased [id number], likely post therapy effect. No new masses. [...] David Moya MD IMG MRI JAIMEE ACOSTA * IR EMBOLIZATION (05/14/2022 10:34 EST) Anatomical [...] The needle was exchanged for a 5 Cymro slender sheath. Anti-spasmodic solution of 2.5 mg of verapamil, 3000 units of heparin, and 200 mcg of nitroglycerin was admixed with blood and administered via the sheath side-port over the course of one minute. A 1.5J Glidewire was preloaded into a catheter and the system was advanced through the descending thoracic aorta to the abdominal aorta. A 5 Cymro Kaylah catheter was advanced over a wire [...] device was performed by Authorized User David Myoa M.D. Procedure Note Griffin, David Rowley MD [...] aorta to the abdominal aorta. A 5 Cymro [employer] catheter was advanced over a wire into [...] band. There were no immediate post procedurecomplications. The [...] left lobe of theliver. Ingris E Chin [employer] IR ORDERABLES documented in this encounter Visit [...] intravenous, ONCE PRN, 1 dose, Starting on Tue05/14/22 at 0812, Until Tue05/14/22 at 1038, Other, Radiology Procedure, Routine, Intraprocedure Given 05/14/2022 10:38 EST 150 mcg hydrocortisone sodium succinate (PF) (SOLU-CORTEF) injection 100 mg 100 mg, intravenous, NOW X1, 1 dose, On Tue05/14/22 at 0830, Routine Given 05/14/2022 8:29 EST 100 mg iohexoL (OMNIPAQUE 300) injection 50 mL 50 mL, intra-arterial, NOW X1, 1 dose, On Tue05/14/22 at 1030, Routine Given 05/14/2022 10:32 EST 10 mL iohexoL (OMNIPAQUE 350) solution 100 mL 100 mL, intra-arterial, Once in imaging, 1 dose, Starting on Tue05/14/22 at 1009, Until Tue05/14/22 at 1033, Routine Given 05/14/2022 10:33 EST 10 mL lidocaine-prilocaine (EMLA) 2.5-2.5 % cream topical, Once (Without Time Specified), 1 dose, Starting on Tue05/14/22 at 0745, Until Tue05/14/22 at 0830 Given by Other 05/14/2022 8:30 EST midazolam (VERSED) injection 0.5-10 mg 0.5-10 mg, intravenous, ONCE PRN, 1 dose, Starting on Tue05/14/22 at 0812, Until Tue05/14/22 at 1038, Sedation, Routine, Intraprocedure Given 05/14/2022 10:38 EST 3 mg nitroGLYCERIN (NITROGLYN) 2 % ointment 0.5 Inch 0.5 Inch, topical, NOW X1, 1 dose, On Tue05/14/22 at 0745, Routine Given by Other 05/14/2022 8:31 EST 0.5 Inches nitroGLYcerin 25 mg/250 mL (100 mcg/mL) infusion 200 mcg 200 mcg, intra-arterial, NOW X1, 1 dose, On Tue05/14/22 at 0815, Routine Given 05/14/2022 9:33 EST 200 mcg nitroGLYcerin 25 mg/250 mL (100 mcg/mL) infusion 500 mcg 500 mcg, intra-arterial, CONTINUOUS, Starting on Tue05/14/22 at 0815, Until Tue05/16/22 at 0206, Routine, Intraprocedure New Bag 05/14/2022 9:38 EST 500 mcg nitroGLYcerin 25 mg/250 mL (100 mcg/mL) infusion As needed, Starting on Tue05/14/22 at 0950, Until Tue05/14/22 at 1034, Routine, Intraprocedure Given 05/14/2022 9:50 EST 200 mcg nitroGLYcerin 25 mg/250 mL (100 mcg/mL) infusion As needed, Starting on Tue05/14/22 at 1001, Until Tue05/14/22 at 1034, Routine, Intraprocedure Given 05/14/2022 10:01 EST 200 mcg ondansetron (PF) (ZOFRAN) injection 8 mg 8 mg, intravenous, NOW X1, 1 dose, On Tue05/14/22 at 0830, Routine Given 05/14/2022 8:28 EST 8 mg sodium chloride 0.9 % (NS) infusion 50 mL/hr, intravenous, CONTINUOUS, Starting on Tue05/14/22 at 0800, Until Tue05/16/22 at 0206, Routine, Preprocedure New Bag 05/14/2022 8:14 EST 50 mL/hr 50 mL/hr verapamil (ISOPTIN) injection 2.5 mg 2.5 mg, intra-arterial, NOW X1, 1 dose, On Tue05/14/22 at 0815, Routine Given 05/14/2022 9:33 EST 2.5 mg documented in this encounter Orders Medications Ordered That Vj ht Not Have Been Administered Count Last Ordered Date First Ordered Date ciprofloxacin (CIPRO) IVPB 400 mg 1 022 flumazenil (ROMAZICON) injection 0.2 mg 1 1 07/15/2021 heparin 1,000 unit/mL inject ion 4,000 Units 1 05/14/2022 hydrocortisone sodium succin ate (PF) (SOLU-CORTEF) 100 mg in sodium chloride (NS) 0.9 % 50 mL IVPB 1 05/14/2022 lidocaine (PF) 10 mg/mL (1 % ) injection 2 mg 2 05/14/2022 naloxone (NARCAN) injection 0.4 mg 1 2021 ondansetron (PF) (ZOFRAN) injection 4 mg 1 05/14/2022 ondansetron (ZOFRAN) 8 mg in sodium chloride (NS) 0.9 % 50 mL IVPB 1 05/14/2022 Discharge Count Last Ordered Date First Orde red Date DISCHARGE PATIENT 1 05/14/2022 documented in this encounter Care Teams Program Director Group Work Relationship Specialty Start Date End Date Linda Blancas MD [address] [place] [address] [address] [place] [address] PCP - General 01/06/11 Adolfo Carreno MD [address] [place] [phone] General Surgery 04/26/19 Augustina Colin MD PhD [address] [place] [phone] Medical Oncology 04/26/19 documented as of this encounter
--- OUTSIDE RECORDS SUMMARY | 2024-03-20 14:48 | XMS_ITS | Encounter Summary ---
Author Organization [facility] Address [address] [place] [address] Care Team Providers Care Bus Operator Name Role Phone Linda Blancas MD Primary Care Provider [phone] Adolfo Carreno MD Unavailable [phone] Augustina Colin MD PhD Unavailable Unavailable Encounter Details Date Type Department Care Team (Late st Contact Info) Description 04/09/2022 Orders Only [facility] Interventional Radiology - Main [address] [address] Marisol Cunha RN Liver metastasis (HCC-CMS) (HCC) (HCC-CMS) (Primary Dx) Social History [...] Contact Info) Description 04/02/2024 10:30 EDT Appointment [facility] Interventional Radiology Unit [address] [place] [address] [phone] 04/02/2024 15:15 EDT Office Visit [facility] Surgical Oncology - [address] [phone] Adolfo Carreno MD [address] [place] [address] [phone] 04/05/2024 9:30 EDT Telemedicine [facility] Palliative Care Services [address] [place] [address] [phone] Chichi Woods MD [address] [place] [address] [phone] 04/11/2024 15:00 EDT Telemedicine [facility] Hematology & Oncology [address] [phone] Alisson Carreon MD [address] [place] [address] [phone] 04/13/2024 13:30 EDT Appointment [facility] Hematology & Oncology [address] [phone] 04/13/2024 14:00 EDT Appointment [facility] Hematology & Oncology [address] [phone] 04/16/2024 10:00 EST Telemedicine [facility] - [facility] Palliative Care Services [address] [place] [address] [phone] Chichi Woods MD [address] [place] [address], [address] [phone] 04/24/2024 9:00 EST Appointment [facility] Radiology CT Outpatient - [address] [phone] 04/24/2024 11:00 EST Appointment [facility] Breast Imaging - [facility] [address] [place] [address] [place], [place] 923301 04/27/2024 12:00 EST Appointment [facility] Hematology & Oncology - [address] [phone] 05/02/2024 15:00 EST Telemedicine [facility] Hematology & Oncology - [address] [phone] Alisson Carreon MD [address] [place] [address], [facility] 2 [place] [phone] 05/04/2024 10:15 EST Ancillary Procedure [facility] Cardiology - [place] [address] 05/04/2024 11:30 EST Appointment [facility] Hematology & Oncology - [address] [phone] 05/04/2024 12:00 EST Appointment [facility] Hematology & Oncology [address] [phone] 06/12/2024 13:00 EST Appointment [facility] Radiology CT - [address] [phone] documented as of this encounter Results * (ABNORMAL) COMPLETE BLOOD COUNT AND DIFFERENTIAL (06/10/2022 9:23 [facility]) WBC 7.30 4.00 - 12.40 K/cmm 06/10/2022 11:31 [facility] RBC 4.23 3.86 - 5.04 M/cmm 06/10/2022 11:31 [facility] Hemoglobin 14.6 11.6 - 15.2 gm/dL 06/10/2022 11:31 [facility] HCT 43.8 34.9 - 44.4 % 06/10/2022 11:31 [facility] MCV 104(H) 81 - 98 fl 06/10/2022 11:31 [facility] MCH 34.5(H) 26.7 - 33.3 pg 06/10/2022 11:31 [facility] MCHC 33.3 32.1 - 35.9 gm/dL 06/10/2022 11:31 [facility] RDW-CV 14.1 <14.7 % 06/10/2022 11:31 [facility] RDW-SD 53.3(H) <50.4 fl 06/10/2022 11:31 [facility] PLT 110(L) 141 - 377 K/cmm 06/10/2022 11:31 [facility] MPV 11.6 9.5 - 12.7 fl 06/10/2022 11:31 [facility] % Neutrophils 70.0 % 06/10/2022 11:31 [facility] % Lymphocytes 14.0 % 06/10/2022 11:31 [facility] % Monocytes 14.7 % 06/10/2022 11:31 [facility] % Eosinophils 0.8 % 06/10/2022 11:31 [facility] % Basophils 0.4 % 06/10/2022 11:31 [facility] % Immature Grans 0.1 % 06/10/20 11:31 [facility] Absolute Neutrophils 5.11 2.20 - 8.85 K/cmm 06/10/2022 11:31 [facility] Absolute Lymphocytes 1.02(L) 1.09 - 3.30 K/cmm 06/10/2022 11:31 [facility] Absolute Monocytes 1.07(H) 0.10 - 0.80 K/cmm 06/10/2022 11:31 [facility] Absolute Eosinophils 0.06 0.03 - 0.61 K/cmm 06/10/2022 11:31 [facility] ABS Basophils 0.03 0.01 - 0.11 K/cmm 06/10/2022 11:31 [facility] Absolute Immature Grans 0.01 0.00 - 0.06 K/cmm 06/10/2022 11:31 [facility] Type of Differential: Auto 06/10/2022 11:31 [facility] Blood VENOUS BLOOD / Unknown Venipuncture / Unknown 06/10/2022 9:23 EST 06/10/2022 11:18 EST David Moya MD PACKAGES & D NA PROBE ORDERABLES Performing Organization Address City/[facility] de Phone Number [facility] [address] [place] [address] * PROTIME (06/10/2022 9:23 EST) I.N.R. 0.9 0.9 - 1.1 Ratio 06/10/2022 11:28 [facility] Pro Time 10.4 9.7 - 12.8 secs 06/10/2022 11:28 [facility] Blood VENOUS BLOOD / Unknown Venipuncture / Unknown 06/10/2022 9:23 EST 06/10/2022 11:01 EST Narrative [facility] - 06/10/2022 11:28 EST Moderate Intensity Coumadin INR = 2.0-3.0 Adjustments in anticoagulant therapy dose should be based on the INR and NOT on the Protime. David Moya MD HEMATOLOGY & PF4 ORDERABLES [facility] [address] [place] [address] * (ABNORMAL) COMPREHENSIVE METABOLIC PANEL (CMP) (06/10/2022 9:23 EST) Sodium 138 136 - 145 mmol/L 06/10/2022 12:07 [facility] Potassium 5.4(H) 3.5 - 5.0 mmol/L 06/10/2022 12:07 [facility] Comment:Moderate hemolysis i dentified, interpret with caution as hemolysis will elevate potassium result. Chloride 103 96 - 110 mmol/L 06/10/2022 12:07 [facility] CO2 Total 27 22 - 32 mmol/L 06/10/2022 12:07 [facility] Glucose 66(L) 70 - 100 mg/dL 06/10/2022 12:07 [facility] BUN 16 10 - 26 mg/dL 06/10/2022 12:07 [facility] Comment:Moderate hemolysis i dentified, interpret with caution as results may be affected due to hemolysis. Creatinine 0.61 0.52 - 1.04 mg/dL 06/10/2022 12:07 [facility] eGFR 102 >60 mL/min/1.7 3m2 06/10/2022 12:07 [facility] Total Protein 7.4 6.3 - 8.2 g/dL 06/10/2022 12:07 [facility] Comment:Moderate hemolysis i dentified, interpret with caution as results may be affected due to hemolysis. Albumin 4.0 3.4 - 4.9 g/dL 06/10/2022 12:07 [facility] Comment:Moderate hemolysis i dentified, interpret with caution as results may be affected due to hemolysis. Alkaline Phosphatase 197(H) 38 - 126 U/L 06/10/2022 12:07 [facility] Comment:Moderate hemolysis i dentified. Hemolysis will decrease ALKP result. Suggest re-evaluation if clinically indicated AST 105(H) 15 - 46 U/L 06/10/2022 12:07 [facility] Comment:Moderate hemolysis i dentified, interpret with caution as results may be affected due to hemolysis. ALT 55(H) <35 U/L 06/10/2022 12:07 [facility] Bilirubin, Total 1.3 <1.4 mg/dL 06/10/20 12:07 [facility] Comment:Moderate hemolysis i dentified, interpret with caution as results may be affected due to hemolysis. Calcium 9.3 8.5 - 10.5 mg/dL 06/10/2022 12:07 [facility] Albumin/Globulin Ratio 1.2 1.0 - 2.5 06/10/2022 12:07 [facility] Anion Gap 8 5 - 14 06/10/2022 12:07 [facility] Blood VENOUS BLOOD / Unknown Venipuncture / Unknown 06/10/2022 9:23 EST 06/10/2022 11:19 EST David Moya MD CHEMISTRY & BLOOD GAS ORDERABLES Performing Organization Address City/[facility] Co de Phone Number [facility] [address] [place] [address] documented in this encounter Visit Diagnoses Diagnosis Liver metastasis- Primary Secondary malignant neoplasm of liver documented in this encounter Care Teams Bus Operator Relationship Specialty Start Date End Date Linda Blancas MD [address] [place] [address] [address] [place] [address] PCP - General 01/06/11 Adolfo Carreno MD [address] [place] [address] [phone] General Surgery 04/26/19 Augustina Colin MD PhD [address] [place] [phone] Medical Oncology 04/26/19 documented as of this encounter
--- OUTSIDE RECORDS SUMMARY | 2024-03-20 14:48 | XMS_ITS | Encounter Summary ---
Author Organization [facility] Address [address] [place] [address] Care Team Providers Care Scrap Metal Processing Worker Name Role Phone Linda Blancas MD Primary Care Provider [phone] Adolfo Carreno MD Unavailable [phone] Augustina Colin MD PhD Unavailable Unavailable Encounter Details Date Type Department Care Team (Late st Contact Info) Description 04/27/2022 Orders Only [facility] Radiology - Main [place] [address] [place] [address] Louie Turner MD [address] [place], [place] 597491 Social History Tobacco Use Types Packs/Day Years [...] EDT Appointment [facility] Interventional Radiology Unit [address] [place] [address] [phone] 04/02/2024 15:15 EDT Office Visit [facility] Surgical Oncology - [address] [phone] Adolfo aCrreno MD [address] [place] [address] 2 [place] [phone] 04/05/2024 9:30 EDT Telemedicine [facility] - [facility] Palliative Care Services [address] [place] [address] [phone] Chichi Woods MD [address] [place] [address], [address] [phone] 04/11/2024 15:00 EDT Telemedicine [facility] Hematology & Oncology - [address] 703121 Alisson Carreon MD [address] [place] [address] 2 [place] [phone] 04/13/2024 13:30 EDT Appointment [facility] Hematology & Oncology - [address] [phone] 04/13/2024 14:00 EDT Appointment [facility] Hematology & Oncology - [address] [phone] 04/16/2024 10:00 EST Telemedicine [facility] - [facility] Palliative Care Services [address] [place] [address] Chichi Woods MD [address] [facility], [address] [phone] 04/24/2024 9:00 EST Appointment [facility] Radiology CT Outpatient - [address] [phone] 04/24/2024 11:00 EST Appointment [facility] Breast Imaging - [facility] S [place] [address] [place], [place] 382431 04/27/2024 12:00 EST Appointment [facility] Hematology & Oncology - [address] [phone] 05/02/2024 15:00 EST Telemedicine [facility] Hematology & Oncology - [address] [phone] Alisson Carreon MD [address] [place] [address], [facility], Level [address] [place] [phone] 05/04/2024 10:15 EST Ancillary Procedure [facility] Cardiology - [place] [address] 05/04/2024 11:30 EST Appointment [facility] Hematology & Oncology - [address] [phone] 05/04/2024 12:00 EST Appointment [facility] Hematology & Oncology - [address] [phone] 06/12/2024 13:00 EST Appointment [facility] Center Radiology CT - [address] [phone] documented as of this encounter Visit Diagnoses Not on filedocumented in this encounter Care Teams Scrap Metal Processing Worker Relationship Specialty Start Date End Date Linda Blancas MD [address] [place] [address] 30 [place] [address] PCP - General 01/06/11 Adolfo Carreno MD [address] [place] [phone] General Surgery 04/26/19 Augustina Colin MD PhD [address] [place] [phone] Medical Oncology 04/26/19 documented as of this encounter
--- OUTSIDE RECORDS SUMMARY | 2024-03-20 14:48 | XMS_ITS | Encounter Summary ---
Author Organization [facility] Address [address] [place] [address] Care Team Providers Care Cotton Breeder Name Role Phone Linda Blancas MD Primary Care Provider [phone] Adolfo Carreno MD Unavailable [phone] Augustina Colin MD PhD Unavailable Unavailable Reason for Visit * Reason Onset Date Comments IR Procedure Follow-up 05/21/2022 Encounter Details Date Type Department Care Team (Late st Contact Info) Description 05/21/2022 Telephone [facility] Interventional Radiology - Main [place] [address] [place], [place] [phone] Marisol Cunha RN IR Procedure Follow-up Social [...] Telephone Encounter - Marisol Cunha RN - 05/21/2022 1058 EST Second FU call to [facility] s/p y90 treatment on 12-[address] Moya Patient feels great and has had a smooth and easy recovery. She reports feeling well, good energy, denies pain, N/V, fever, chills. Denies any other symtoms. Her puncture site is healed. Plan: MRI (order in), OV, and labs(unless done by Dr Colin) in 3 months documented in this encounter Plan of Treatment Upcoming Encounters Date Type Department Care Team (Late st Contact Info) Description 04/02/2024 10:30 EDT Appointment [facility] Interventional Radiology Unit [address] [place] [address] [phone] 04/02/2024 15:15 EDT Office Visit [facility] Surgical Oncology - [facility] [address] [place], [place] [phone] Adolfo Carreno MD 111 [facility], Level [address] [place] [phone] 04/05/2024 9:30 EDT Telemedicine [facility] - [facility] Palliative Care Services [address] [place], [place] [phone] Chichi Woods MD 111 [facility], [address] [phone] 04/11/2024 15:00 EDT Telemedicine [facility] Hematology & Oncology - [address] 878121 Alisson Carreon MD [address] [place] [address], [facility] [address] [place] [phone] 04/13/2024 13:30 EDT Appointment [facility] Hematology & Oncology - [address] [phone] 04/13/2024 14:00 EDT Appointment [facility] Hematology & Oncology - [address] [address] 04/16/2024 10:00 EST Telemedicine [facility] - [facility] Palliative Care Services [address] [place] [address] [phone] Chichi Woods MD [address] [place] [address], [address] [phone] 04/24/2024 9:00 EST Appointment [facility] Radiology CT Outpatient - [address] [phone] 04/24/2024 11:00 EST Appointment [facility] Breast Imaging - [address] [phone] 04/27/2024 12:00 EST Appointment [facility] Hematology & Oncology - [address] [phone] 05/02/2024 15:00 EST Telemedicine [facility] Hematology & Oncology - [address] [phone] Alisson Carreon MD [address] [place] [address], [facility] [address] [place] [phone] 05/04/2024 10:15 EST Ancillary Procedure [facility] Cardiology - [address] [place] [address] 05/04/2024 11:30 EST Appointment [facility] Hematology & Oncology [address] [address] 05/04/2024 12:00 EST Appointment [facility] Hematology & Oncology [address] [address] 06/12/2024 13:00 EST Appointment [facility] Radiology CT - [address] [phone] documented as of this encounter Visit Diagnoses Not on filedocumented in this encounter Care Teams Cotton Breeder Relationship Specialty Start Date End Date Linda Blancas MD [facility] [address] [place] [address] PCP - General 01/06/11 Adolfo Carreno MD [address] [place] [address] [phone] General Surgery 04/26/19 Augustina Colin MD PhD [address] [place] [phone] Medical Oncology 04/26/19 documented as of this encounter
--- OUTSIDE RECORDS SUMMARY | 2024-03-20 14:48 | XMS_ITS | Encounter Summary ---
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 Machine Operator Name Role Phone Linda Blancas MD Primary Care Provider [phone] Adolfo Carreno MD Unavailable [phone] Augustina Colin MD PhD Unavailable Unavailable Reason for Referral * Radiology Services (Routine/Next Available) - Authorization Not Required Specialty Diagnoses / Procedures [facility] Referred To Contact Diagnoses Liver metastasis Procedures IR EMBOLIZATION ND VASCULAR EMBOLIZE/OCCLUDE ORGAN TUMOR INFARCT [facility] [address] [place] [address] [facility] Referral ID Status Reason Start Date Expiration Date Visits Requested Visits Authorized [id number] Authorization Not Required 2 1 1 Reason for Visit * Radiology Services (Routine/Next Available) - Authorization Not Required Specialty Diagnoses / Procedures [facility] Referred To Contact Diagnoses Liver metastasis Procedures IR EMBOLIZATION ND VASCULAR EMBOLIZE/OCCLUDE ORGAN TUMOR INFARCT [facility] Gonzalez [address] [place] [address] [facility] Referral ID Status Reason Start Date Expiration Date Visits Requested Visits Authorized [id number] Authorization Not Required 2 1 1 Encounter Details Date Type Department Care Team (Late st Contact Info) Description 05/13/2022 7:28 EST - 05/13/2022 23:59 EST Hospital Encounter [facility] Interventional Radiology Unit [address] [place] [id number] David Moya MD [address] [facility], [facility] Level [address] [place] [address] Kaylah Bhagat Liver metastasis (HCC-CMS) (HCC) (HCC-CMS); Malignant neoplasm [...] Sign Reading Time Taken Comments Blood Pressure 112/81 05/13/2022 1230 EST Pulse - - Temperature 36.5 ??C (97.7 ??F) 05/13/2022 1300 EST Respiratory Rate 16 05/13/2022 1230 EST Oxygen Saturation 99% 05/13/2022 1230 EST Inhaled Oxygen Concentration - - Weight 58.5 kg (129 lb) 05/13/2022 0751 EST Height 153.7 cm (5' 0.5) 05/13/2022 0751 EST Body Mass Index 24.78 05/13/2022 0751 EST documented in this encounter Functional Status [...] encounter Discharge Instructions * Discharge Instructions* Kolton Cruz, SHELLEY - 05/13/2022 9:[address] [facility] Interventional Radiology Patient Discharge Education Preparatory Angiogram for Radioembolization Therapy (SirSpheres and Theraspheres) Procedure Wound Site - left Abdomen Dr. David Moya MD has completed an angiogram of your Abdomen. Radioembolization is used to treat primary liver cancer and other cancers that have metastasized tothe liver. The preparatory angiogram is performed to map out the veins and arteries of the liver and block those that leave the liver and go to other organs. This is done to prevent radioactive beadsfrom traveling to other organs when the treatment dose is given (at your next visit). Using x-ray guidance, a small catheter is inserted into an artery, usually in the upper thigh region, and fed up to the liver. Special dye is first injected which allows pictures to be taken and the vessels surrounding the tumor to be visualized. [place] coils are then placed in certain vessels the doctor feels are necessary. Please drink extra fluids today (6-8 glasses). This will encourage the excretion of the contrast dye material. Do not drive or make any legal decisions today as you have received medications. You should wear an arm sling for 24hours if the entry point was near your arm pit. Keep your elbow in toward your body as much as possible. If you feel a tingling sensation or [...] Follow the instructions for wound care above. You have had a Angiogram performed through a small incision in the artery in your L wrist. Your artery was closed using the following method: TR Band, and then a Gauze and Tegaderm Dressing. Care of your Incision: For your Wrist incision, keep the area clean and dry. [...] hours of the procedure. EXPECTED SIDE EFFECTS: You may have side effects from the medications used during the procedure to keep you comfortable. Many describe this feeling as a slight ???hang-over?? . Nausea may occur due to these medications butusually does not last longer than 12-24 hours. Aside from this and soreness at the catheter insertion site, you should not have many side effects. Follow-up If you are not already scheduled for your treatment procedure, you will be called shortly after this procedure to discuss open dates. Please call us at [phone] if you have not heard from us within 1 week. IF YOU HAVE ANY QUESTIONS OR CONCERNS OR IF YOU HAVE DEVELOPED ANY OF THE SYMPTOMS ABOVE, PLEASE CALL THE INTERVENTIONAL RADIOLOGY CLINIC AT [phone], OPTION 2 TO REACH THE NURSE TRIAGE [...] Tablets by mouth as needed. 12/07/2023 mv-mn/C/glutamin/lysin/h [id number] (AIRBORNE, ASCORBATE SODIUM, ORAL) Take by mouth [...] documented in this encounter Progress Notes * Edith Bojorquez RN - 05/13/2022 3630 EST Sunshine Pleitez arrived to the Cardiovascular [...] the past few weeks? YES/NO: No * Kolton Cruz RN - 05/13/2022 0230 EST Pt in IR for - mapping procedure. ID'd by name and , reviewed allergies and current medications. Confirmed consent is complete Patient meets criteria to receive conscious sedation Background from chart review: 61 y.o. woman presents for mapping angiogram and Tc99m MAA administration.?? Assessment: Patient arrived to IR at 0847 from home. Members in the room introduced. Pt moved to the angio table in supine position. ??? Monitoring in place vital signs assessed. Patients base line pain 0 L abdomen area prepped in the usual sterile fashion with duraprep , by tjp in accordance with hat forming machine operator recommendation. Medication administered during procedure: Sedation start: 902 Sedation stop: 1005 2.5mg Versed given IV 100mcg Fentanyl given IV over 62 minutes Receiving RN to release and acknowledge Post procedure orders. * Edith Bojorquez RN - 05/13/2022 0730 EST Sunshine Pleitez arrived to CVU #4 at 1138 via stretcher s/p Y90 mapping. Alert and oriented x3. [address] Moya in to bedside. 1247 Patient OOB, no complaints of pain, nausea, lightheadedness or dizziness. 1318 Patient discharged to home via WC with , Nitish. documented in this encounter H&P Notes * Ingris Chin DO - 05/13/2022 0730 EST The preoperative history and physical which was performed within 30 days of this procedure has been reviewed and the clinically appropriate elements of the physical examination have been repeated. There are no changes to the documented history and physical or if so such changes are documented below 61 y.o. woman presents for mapping angiogram and Tc99m MAA administration. Physical Exam General: AAOx3, NAD CV: RRR Resp: CTAB Abd: soft, nontender Extremities: warm, well perfused Plan: Proceed with procedure as planned. Ingris Chin DO 05/13/2022 8:47 Source Note - Augustina Colin MD PhD - 04/26/2022 13:30 EST REASON FOR OFFICE VISIT: ??Discussion of [...] of ER+ DCIS. a. ??Ultrasound performed in [place]??identifying an irregular heterogeneous soft tissue mass measuring 1.2 x 1.2 x 1.5 cm. ?? 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 ??HER-2 1+ by IHC. ??ANNE MARIE revealed [...] breast tumor 07/07/17 and placement of tissue compressor engineer. ??1.9 cm tumor at time of surgery, well differentiated, with LVI present, and negative margins. G. Biopsy left cervical LN 02/11/20 - consistent with metastatic adenocarcinoma consistent with breast primary H. Fulvestrant initiated 03/06/20; abemaciclib initiated 03/31/20 discontinued 06/01 due to diarrhea; palbociclib initiated March 2021 I. Capecitabine initiated December 2021 J. Y90 infusion to liver by Dr Moya 04/08/22 K. 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 SUBJECTIVE: ??Ms Padilla-West presents to clinic to discuss effects related to capecitabine. [facility] She had Y90 [...] FORMULA ORAL) Take by mouth daily. ??? mv-mn/C/glutamin/lysin/avtw362 (AIRBORNE, ASCORBATE SODIUM, ORAL) Take by mouth [...] today at a lower dose today. 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 There are no changes to the documented history and physical or if so such changes are documented below 61 y.o. woman presents for mapping angiogram and Tc99m MAA administration. Physical Exam General: AAOx3, NAD CV: RRR Resp: CTAB Abd: soft, nontender Extremities: warm, well perfused Plan: Proceed with procedure as planned. Ingris Chin DO 05/13/2022 8:47 Source Note - Augustina Colin MD PhD - 04/26/2022 13:30 EST REASON FOR OFFICE VISIT: ??Discussion of [...] of ER+ DCIS. a. ??Ultrasound performed in [place]??identifying an irregular heterogeneous soft tissue mass measuring 1.2 x 1.2 x 1.5 cm. ?? 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 ??HER-2 1+ by IHC. ??ANNE MARIE revealed [...] breast tumor 07/07/17 and placement of tissue compressor engineer. ??1.9 cm tumor at time of surgery, well differentiated, with LVI present, and negative margins. G. Biopsy left cervical LN 02/11/20 - consistent with metastatic adenocarcinoma consistent with breast primary H. Fulvestrant initiated 03/06/20; abemaciclib initiated 03/31/20 discontinued 06/01 due to diarrhea; palbociclib initiated March 2021 I. Capecitabine initiated December 2021 J. Y90 infusion to liver by Dr Moya 04/08/22 K. [facility] ONE testing Apr 2022: ESR1 [...] FORMULA ORAL) Take by mouth daily. ??? mv-mn/C/glutamin/lysin/hbje357 (AIRBORNE, ASCORBATE SODIUM, ORAL) Take by mouth [...] today at a lower dose today. 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 but she [...] Home Patient location state: Visit Location State: [place] The location of the provider: Office Provider location state: Visit Location State: [place] The following people and their roles were present for today's visit: Appointment Provider: Augustina Colin MD PhD Augustina Colin MD PhD documented in this encounter Procedure Notes * David Moya MD - 05/13/2022 0730 EST INTERVENTIONAL RADIOLOGY BRIEF PROCEDURE NOTE Radiologist: Griffin Procedure(s) Performed: Y90 mapping Indication/Pre-procedure diagnosis: Liver metastases Post-procedure diagnosis: Same Condition: Stable Anesthesia: Local with Sedation Approach: Left radial Medications: IV Versed and fentanyl and local lidocaine 1% Contrast: 40 cc Fluoro time: 5 min EBL: Minimal Specimens: None Findings: Left hepatic artery injection of MAA A time-out was completed prior to procedure verifying correct patient, procedure, site, positioning, and special equipment if applicable. Complications: None Recommendations: Per orders. Please refer to final dictated report (Chart Review, Imaging tab in PRISM) for complete findings and recommendations. Roosevelt Moya MD Interventional Radiologist Pager #[phone] documented in this encounter Plan of Treatment Upcoming Encounters Date Type Department Care Team (Late st Contact Info) Description 04/02/2024 10:[address] [facility] Interventional Radiology Unit [address] [place] [address] [phone] 04/02/2024 15:15 EDT Office Visit [facility] Surgical Oncology - [address] [phone] Adolfo Carreno MD [address] [place] [address] [address] [place] [phone] 04/05/2024 9:30 EDT Telemedicine [facility] - [facility] Palliative Care Services [address] [place] [address] [phone] Chichi Woods MD [address] [place] [phone] 04/11/2024 15:00 EDT Telemedicine [facility] Hematology & Oncology [address] [id number] Alisson Carreon MD [address] [place] [phone] 04/13/2024 13:30 EDT Appointment [facility] Hematology & Oncology [address] [id number] 04/13/2024 14:00 EDT Appointment [facility] Hematology & Oncology - [address] [phone] 04/16/2024 10:00 EST Telemedicine [facility] - [facility] Palliative Care Services [address] [place] [address] [phone] Chichi Woods MD [address] [facility], [address] [phone] 04/24/2024 9:00 EST Appointment [facility] Radiology CT Outpatient - [address] [id number] 04/24/2024 11:[address] [facility] Breast Imaging - [facility] [address] [place], [place] [phone] 04/27/2024 12:00 EST Appointment [facility] Hematology & Oncology - [address] [phone] 05/02/2024 15:00 EST Telemedicine [facility] Hematology & Oncology - [address] [phone] Alisson Carreon MD [address] [place] [address], Level [address] [place] [phone] 05/04/2024 10:15 EST Ancillary Procedure [facility] Cardiology [place] [address] [place] [phone] 05/04/2024 11:30 EST Appointment [facility] Hematology & Oncology - [address] [id number] 05/04/2024 12:00 EST Appointment [facility] Hematology & Oncology [address] [phone] 06/12/2024 13:00 EST Appointment [facility] Radiology CT - [address] [phone] documented as of this encounter Procedures Procedure Name Priority Date/Time Associated Diagnosis Comments IR EMBOLIZATION Routine 05/13/2022 10:26 EST Liver metastasis (HCC-CMS) (HCC) (HCC-CMS) documented in this encounter Results * IR EMBOLIZATION (05/13/2022 10:26 EST) Anatomical Region Laterality Modality N/A X-Ray Angiograph y 05/14/2022 15:4 3 EST Impressions 05/14/2022 15:43 EST 1. Successful mesenteric angiography as part of Y 90 mapping. Narrative 05/14/2022 15:43 EST MESENTERIC ANGIOGRAM [...] The needle was exchanged for a 5 [place] slender sheath. Anti-spasmodic solution of 2.5 mg of verapamil, 3000 units of heparin, and 200 mcg of nitroglycerin was admixed with blood and administered via the sheath side-port over the course of one minute. A 1.5J Glidewire was preloaded into a catheter and the system was advanced through the descending thoracic aorta to the abdominal aorta. A 5 [place] Kaylah catheter was advanced over a wire [...] no immediate post procedure complications. Procedure Note Scriver, David Rowley MD - 05/14/2022 MESENTERIC ANGIOGRAM [...] aorta to the abdominal aorta. A 5 [place] Kaylah catheter was advanced over a wire [...] 1. Successful mesenteric angiography as part of Y 90 mapping. Ingris NIEVES IR ORDERABLES documented in this encounter Visit [...] ONCE PRN, 1 dose, Starting on Michelle 12/1/22 at 0740, Until Michelle 05/13/22 at 1024, Other, Radiology Procedure, Routine, Preprocedure Given 05/13/2022 10:24 EST 100 mcg heparin 1,000 unit/mL injection 3,000 Units 3,000 Units, intravenous, NOW X1, 1 dose, On Michelle 05/13/22 at 0830 Given by Other 05/13/2022 9:18 EST 4,000 Units iohexoL (OMNIPAQUE 350) solution 100 mL 100 mL, intra-arterial, Once in imaging, 1 dose, Starting on Michelle 05/13/22 at 0853, Until Michelle 05/13/22 at 1014, Routine Given 05/13/2022 10:14 EST 6 mL iohexoL (OMNIPAQUE 350) solution 100 mL 100 mL, intra-arterial, Once in imaging, 1 dose, Starting on Michelle 05/13/22 at 0913, Until Michelle 05/13/22 at 1013, Routine Given 05/13/2022 10:13 EST 34 mL lidocaine-prilocaine (EMLA) 2.5-2.5 % cream topical, Once (Without Time Specified), 1 dose, Starting on Michelle 05/13/22 at 0740, Until Michelle 05/13/22 at 0822, Preprocedure Given 05/13/2022 8:22 EST midazolam (VERSED) injection 0.5-10 mg 0.5-10 mg, intravenous, ONCE PRN, 1 dose, Starting on Michelle 05/13/22 at 0740, Until Michelle 05/13/22 at 1025, Sedation, Routine, Preprocedure Given 05/13/2022 10:25 EST 2.5 mg nitroGLYCERIN (NITROGLYN) 2 % ointment 0.5 Inch 0.5 Inch, topical, Once (Without Time Specified), 1 dose, Starting on Michelle 05/13/22 at 0740, Until Michelle 05/13/22 at 0823, Routine, Preprocedure Given 05/13/2022 8:23 EST 0.5 Inches nitroGLYcerin 25 mg/250 mL (100 mcg/mL) infusion 200 mcg 200 mcg, intra-arterial, NOW X1, 1 dose, On Michelle 05/13/22 at 1000, Preprocedure Given 05/13/2022 9:41 EST 200 mcg Given by Other 05/13/2022 9:14 EST 200 mcg nitroGLYcerin 25 mg/250 mL (100 mcg/mL) infusion 500 mcg 500 mcg, intravenous, INTRA-OP ONCE, 1 dose, On Michelle 05/13/22 at 0730, Routine Given by Other 05/13/2022 9:20 EST 500 mcg nitroGLYcerin 25 mg/250 mL (100 mcg/mL) infusion intravenous, As needed, Starting on Michelle 05/13/22 at 1007, Until Michelle 05/13/22 at 1026, Routine, Intraprocedure Given 05/13/2022 10:07 EST 200 mcg sodium chloride 0.9 % (NS) infusion 50 mL/hr, intravenous, CONTINUOUS, Starting on Michelle 05/13/22 at 0800, Until 05/15/22 at 0203, Routine, Preprocedure New Bag 05/13/2022 8:05 EST 50 mL/hr 50 mL/hr verapamil (ISOPTIN) injection 2.5 mg 2.5 mg, intra-arterial, NOW X1, 1 dose, On Michelle 05/13/22 at 0830, Routine Given by Other 05/13/2022 9:24 EST 2.5 mg documented in this encounter Orders Medications Ordered That Vj ht Not Have Been Administered Count Last Ordered Date First Ordered Date flumazenil (ROMAZICON) injection 0.2 mg 1 1 07/14/2021 heparin 1,000 unit/mL inject ion 3,000 Units 1 05/13/2022 hydrocortisone sodium succin ate (PF) (SOLU-CORTEF) injection 100 mg 1 05/13/2022 lidocaine (PF) 10 mg/mL (1 % ) injection 2 mg 1 05/13/2022 lidocaine-prilocaine (EMLA) 2.5-2.5 % cream 1 05/13/2022 naloxone (NARCAN) injection 0.4 mg 1 2021 nitroGLYCERIN (NITROGLYN) 2 % ointment 0.5 Inch 1 05/13/2022 nitroGLYcerin 25 mg/250 mL ( 100 mcg/mL) infusion 200 mcg 1 05/13/2022 nitroGLYcerin 25 mg/250 mL ( 100 mcg/mL) infusion 500 mcg 1 05/13/2022 ondansetron (PF) (ZOFRAN) injection 4 mg 1 05/13/2022 vancomycin (VANCOCIN) 2,000 mg in dextrose 5% (D5W) 500 mL IVPB 1 05/13/2022 vancomycin (VANCOCIN) IVPB 1,000 mg 1 05/13 verapamil (ISOPTIN) injection 2.5 mg 1 06/2021 Discharge Count Last Ordered Date First Orde red Date DISCHARGE PATIENT 1 05/13/2022 documented in this encounter Care Teams Fruit Thinner Machine Operator Relationship Specialty Start Date End Date Linda Blancas MD [facility] [address] [place] [address] PCP - General 01/06/11 Adolfo Carreno MD [address] [place] [address] 2 [place] [phone] General Surgery 04/26/19 Augustina Colin MD PhD [address] [place] [address] 2 [place] [phone] Medical Oncology 04/26/19 documented as of this encounter
[2024-03-20 14:49] LABS: Bilirubin Negative (Negative); Blood Negative (Negative); Clarity Clear (Clear); Glucose Negative (Negative); Ketones Negative (Negative); Leukocyte Esterase Negative (Negative); Nitrite Negative (Negative); Specific Gravity 1.015 (1.005-1.025); Urobilinogen 0.2 mg/dL (Up to 0.2)
--- OUTSIDE RECORDS SUMMARY | 2024-03-20 14:49 | XMS_ITS | Encounter Summary ---
Author Organization [facility] Address [address] [place] [address] Care Team Providers Care Payroll Secretary Name Role Phone Linda Blancas MD Primary Care Provider [phone] Adolfo Carreno MD Unavailable [phone] Augustina Colin MD PhD Unavailable Unavailable Reason for Referral * Radiology Services (Routine/Next Available) - Authorization Not Required Specialty Diagnoses / Procedures Referred By Contac t Referred To Contact Nuclear Medicine Diagnoses Metastatic breast cancer Procedures NM BONE WHOLE BODY Augustina Colin MD PhD [facility] Referral ID Status Reason Start Date Expiration Date Visits Requested Visits Authorized [id number] Authorization Not Required 02/26/2022 1 1 Encounter Details Date Type Department Care Team (Late st Contact Info) Description 02/26/2022 Orders Only [facility] Cancer Center Hematology & Oncology - [address] [address] Augustina Colin MD PhD Metastatic breast cancer [...] Appointment [facility] Interventional Radiology Unit [address] [place] [address] [phone] 04/02/2024 15:15 EDT Office Visit [facility] Surgical Oncology - [address] [phone] Adolfo Carreno MD [address] [place] [address] [phone] 04/05/2024 9:30 EDT Telemedicine [facility] - [facility] Palliative Care Services [address] [place] [address] [phone] Chichi Woods MD [address] [place] [address], [address] [phone] 04/11/2024 15:00 EDT Telemedicine [facility] Hematology & Oncology - [address] [phone] Alisson Carreon MD [address] [place] [address] 2 [place] [phone] 04/13/2024 13:30 EDT Appointment [facility] Hematology & Oncology - [address] [phone] 04/13/2024 14:00 EDT Appointment [facility] Hematology & Oncology - [address] [id number] 04/16/2024 10:00 EST Telemedicine [facility] - [facility] Palliative Care Services [address] [place] [address] [phone] Chichi Woods MD [address] [place] [address], [address] [phone] 04/24/2024 9:00 EST Appointment [facility] Radiology CT Outpatient - [address] [address] 04/24/2024 11:00 EST Appointment [facility] Breast Imaging - [facility] S [address] [phone] 04/27/2024 12:00 EST Appointment [facility] Hematology & Oncology - [address] 013691 05/02/2024 15:00 EST Telemedicine [facility] Hematology & Oncology - [address] [address] Alisson Carreon MD [address] [place] [address], Level [address] [place] [phone] 05/04/2024 10:15 EST Ancillary Procedure [facility] Cardiology - [address] [place], [place] [phone] 05/04/2024 11:30 EST Appointment [facility] Hematology & Oncology - [address] [address] 05/04/2024 12:00 EST Appointment [facility] Cancer Center Hematology & Oncology - [address] [address] 06/12/2024 13:00 EST Appointment [facility] Radiology CT - [address] [address] documented as of this encounter Results * NM BONE WHOLE BODY (03/12/2022 16:10 EDT) Anatomical Region Laterality Modality Nuclear Medicine 03/14/2022 7:17 EDT Impressions 03/14/2022 7:17 EDT 1. ??Overall, findings are concerning for progression of metastatic disease with increased radiotracer uptake in the right iliac bone as well as new areas of increased radiotracer uptake in the left scapula as well as left ischial tuberosity. 2. ??Increased radiotracer uptake in the left posterior ninth rib compared to November 2021 most likely related to a healing pathologic fracture. I have personally reviewed the images and the above interpretation and agree with the findings. Narrative 03/14/2022 7:17 EDT NM BONE WHOLE BODY ??03/12/2022 3:00 PM Signs and Symptoms: ??cancer Comparison: CT-guided biopsy on 01/08/2022, CT chest on 11/26/2021, bone scan on 11/23/2021 06/01/2021 Technique: Approximately two hours after the IV injection of 18.2 mCi Tc-99m MDP, anterior and posterior whole body bone images were obtained. Findings: There has been interval increase in intensity of radiotracer uptake in the left posterior ninth rib most likely related to a pathologic fracture. There is also increased radiotracer uptake in the right ilium lesion. There are 2 new areas of concerning radiotracer uptake in the left scapula and left issue tuberosity. No recent cross-sectional imaging to evaluate for correlation since November 2021. No significant change in radiotracer uptake in the lesion in the right anterolateral third rib. No significant change the region of the costovertebral joint of the left 11th rib and posterior lateral right sixth rib. Redemonstrated radiotracer uptake in the upper lumbar spine related to prior spinal fusion as well as in the lower cervical facet. Procedure Note Sonny Georges MD - 03/14/2022 NM BONE WHOLE BODY 03/12/2022 3:00 PM Signs and Symptoms: cancer Comparison: CT-guided biopsy on 01/08/2022, CT chest on 11/26/2021, bonescan on 11/23/2021 06/01/2021 Technique: Approximately two hours after the IV injection of 18.2 mCi Tc-99m MDP,anterior and posterior whole body bone images were obtained. Findings: There has been interval increase in intensity of radiotracer uptake in theleft posterior ninth rib most likely related to a pathologic fracture.There is also increased radiotracer uptake in the right ilium lesion.There are 2 new areas of concerning radiotracer uptake in the left scapulaand left issue tuberosity. No recent cross-sectional imaging to evaluatefor correlation since November 2021. No significant change in radiotracer uptake in the lesion in the rightanterolateral third rib. No significant change the region of thecostovertebral joint of the left 11th rib and posterior lateral rightsixth rib. Redemonstrated radiotracer uptake in the upper lumbar spine related toprior spinal fusion as well as in the lower cervical facet. IMPRESSION 1. Overall, findings are concerning for progression of metastatic diseasewith increased radiotracer uptake in the right iliac bone as well as newareas of increased radiotracer uptake in the left scapula as well as leftischial tuberosity. 2. Increased radiotracer uptake in the left posterior ninth rib comparedto November 2021 most likely related to a healing pathologic fracture. I have personally reviewed the images and the above interpretation andagree with the findings. Augustina Colin MD PhD IMG NM ORDERABLES documented in this encounter Visit Diagnoses Diagnosis Metastatic breast cancer- Primary Metastatic breast cancer documented in this encounter Care Teams Payroll Secretary Relationship Specialty Start Date End Date Linda Blancas MD [facility] [address] [place] [address] PCP - General 01/06/11 Adolfo Carreno MD [address] [place] [address], [address] [place] [phone] General Surgery 04/26/19 Augustina Colin MD PhD [address] [place] [address] 2 [place] [phone] Medical Oncology 04/26/19 documented as of this encounter
--- OUTSIDE RECORDS SUMMARY | 2024-03-20 14:49 | XMS_ITS | Encounter Summary ---
Author Organization [facility] Address [address] [place] [address] Care Team Providers Care Electric Meter Reader Name Role Phone Linda Blancas MD Primary Care Provider [phone] Adolfo Carreno MD Unavailable [phone] Augustina Colin MD PhD Unavailable Unavailable Encounter Details Date Type Department Care Team (Late st Contact Info) Description 03/31/2022 Orders Only [facility] Cancer Center Hematology & Oncology - [facility] [address] [place] [address] Garima Boyce, SHELLEY Social History Tobacco Use [...] 12 hours. 60 Tablet 3 03/31/2022 04/09/2022 documented in this encounter Progress Notes * Garima Boyce, RN - 03/31/2022 1134 EDT Script pended to Alina FU documented in this encounter Plan of Treatment Upcoming Encounters Date Type Department Care Team (Late st Contact Info) Description 04/02/2024 10:30 EDT Appointment [facility] Interventional Radiology Unit [address] [place] [address] [phone] 04/02/2024 15:15 EDT Office Visit [facility] Surgical Oncology - [address] [phone] Adolfo Carreno MD [address] [place] [address] [phone] 04/05/2024 9:30 EDT Telemedicine [facility] - [facility] Palliative Care Services [address] [place] [address] [phone] Chichi Woods MD [address] [place] [address], [address] [phone] 04/11/2024 15:[address] [facility] Hematology & Oncology - [address] 977251 Alisson Carreon MD [address] [place] [address] 2 [place] [phone] 04/13/2024 13:[address] [facility] Hematology & Oncology [address] 938231 04/13/2024 14:[address] [facility] Hematology & Oncology [address] [address] 04/16/2024 10:00 EST Telemedicine [facility] - [facility] Palliative Care Services [address] [place] [address] 534321 Chichi Woods MD [address] [place] [address], [address] [phone] 04/24/2024 9:00 EST Appointment [facility] Radiology CT Outpatient - [address] [id number] 04/24/2024 11:00 EST Appointment [facility] Breast Imaging - [facility] S [address] 162271 04/27/2024 12:[address] [facility] Hematology & Oncology [address] 665391 05/02/2024 15:[address] [facility] Hematology & Oncology - [address] [address] Alisson Carreon MD [address] [place] [address], [facility] 2 [place] [phone] 05/04/2024 10:15 EST Ancillary Procedure [facility] Cardiology - [place] [address] 05/04/2024 11:[address] [facility] Hematology & Oncology [address] 804366 [phone] 05/04/2024 12:00 EST Appointment [facility] Cancer Center Hematology & Oncology - [address] [address] 06/12/2024 13:00 EST [facility]ointment [facility] Radiology CT - [address] [address] documented as of this encounter Visit Diagnoses Not on filedocumented in this encounter Discontinued Medications Medication Sig Discontinue Reason Start Date End Da te capecitabine (XELODA) 500 mg tablet Take 3 Tablets by mouth every 12 hours. 1week on 1 week off. 01/05/2022 03/31/2022 documented as of this encounter Care Teams Electric Meter Reader Relationship Specialty Start Date End Date Linda Blancas MD [address] [place] [address] 30 [place] [address] PCP - General 01/06/11 Adolfo Carreno MD [address] [place] [phone] General Surgery 04/26/19 Augustina Colin MD PhD [address] [place] [phone] Medical Oncology 04/26/19 documented as of this encounter
--- OUTSIDE RECORDS SUMMARY | 2024-03-20 14:49 | XMS_ITS | Encounter Summary ---
Author Organization [facility] Address [address] [place] [address] Care Team Providers Care Esl Teacher Name Role Phone Linda Blancas MD Primary Care Provider [phone] Adolfo Carreno MD Unavailable [phone] Augustina Colin MD PhD Unavailable Unavailable Reason for Visit * Radiology Services (Routine/Next Available) - Authorization Not Required Specialty Diagnoses / Procedures Referred By Contac t Referred To Contact Nuclear Medicine Diagnoses Metastatic breast cancer Procedures NM BONE WHOLE BODY Augustina Colin MD PhD [facility] Referral ID Status Reason Start Date Expiration Date Visits Requested Visits Authorized [id number] Authorization Not Required 02/26/2022 1 1 Encounter Details Date Type Department Care Team (Latest Contact Info) Description 03/12/2022 11:59 EDT - 03/12/2022 23:59 EDT Hospital Encounter [facility] Radiology Nuclear Medicine and PET - [address] [address] Discharge Disposition: Home or Self Care Social [...] 12 hours. 1week on 1 week off. 84 Tablet 3 01/05/2022 03/31/2022 gabapentin (NEURONTIN) 100 mg capsule Take 2 Caps by mouth 2 times daily. 360 Cap 3 08/16/2012 12/14/2023 ibuprofen (MOTRIN) 200 mg tablet Take 2 Tablets by mouth as needed. 12/07/2023 mv-mn/C/glutamin/lysin /ddva996 (AIRBORNE, ASCORBATE SODIUM, ORAL) Take by mouth [...] 10:30 EDT Appointment [facility] Interventional Radiology Unit [address] [place] [address] [phone] 04/02/2024 15:15 EDT Office Visit [facility] Surgical Oncology [address] [phone] Adolfo Carreno MD [address] [place] [phone] 04/05/2024 9:30 EDT Telemedicine [facility] Palliative Care Services [address] [place] [address] [phone] Chichi Woods MD [address] [place] [address] [phone] 04/11/2024 15:00 EDT Telemedicine [facility] Hematology & Oncology [address] [phone] Alisson Carreon MD [address] [place] [address] 2 [place] [phone] 04/13/2024 13:30 EDT Appointment [facility] Hematology & Oncology [address] [phone] 04/13/2024 14:00 EDT Appointment [facility] Hematology & Oncology [address] 667211 04/16/2024 10:00 EST Telemedicine [facility] Palliative Care Services [address] [place], [place] 484751 Chichi Woods MD [address] [facility], [address] [phone] 04/24/2024 9:00 EST Appointment [facility] Radiology CT Outpatient - [address] [id number] 04/24/2024 11:00 EST Appointment [facility] Breast Imaging - [address] [phone] 04/27/2024 12:00 EST Appointment [facility] Hematology & Oncology - [address] [phone] 05/02/2024 15:00 EST Telemedicine [facility] Hematology & Oncology - [address] 766311 Alisson Carreon MD [address] [place] [address], Level [address] [place] [phone] 05/04/2024 10:15 EST Ancillary Procedure [facility] Cardiology - [address] [place], [place] [phone] 05/04/2024 11:30 EST Appointment [facility] Hematology & Oncology - [address] [phone] 05/04/2024 12:00 EST Appointment [facility] Hematology & Oncology - [address] [phone] 06/12/2024 13:00 EST Appointment [facility] Radiology CT - [address] [phone] documented as of this encounter Procedures Procedure Name Priority Date/Time Associated Diagnosis Comments NM BONE WHOLE BODY Routine 03/12/2022 16 :10 EDT Metastatic breast cancer (HCC-CMS) (HCC) (HCC-CMS) [...] on filedocumented in this encounter Care Teams Esl Teacher Relationship Specialty Start Date End Date Linda Blancas MD [facility] [address] [place] [address] PCP - General 01/06/11 Adolfo Carreno MD [address] [place] [phone] General Surgery 04/26/19 Augustina Colin MD PhD [address] [place] [phone] Medical Oncology 04/26/19 documented as of this encounter
--- OUTSIDE RECORDS SUMMARY | 2024-03-20 14:49 | XMS_ITS | Encounter Summary ---
Author Organization [facility] Address [address] [place] [address] Care Team Providers Care Production Director Name Role Phone Linda Blancas MD Primary Care Provider [phone] Adolfo Carreno MD Unavailable [phone] Augustina Colin MD PhD Unavailable Unavailable Encounter Details Date Type Department Care Team (Late st Contact Info) Description 03/30/2022 Lab Requisition [facility] Pathology & Laboratory Medicine - [facility] [address] [place] [address] Augustina Colin, PhD Encounter for other general examination Social History Tobacco Use Types Packs/Day Years [...] [facility] [address] [place] [address] [phone] 04/02/2024 15:15 EDT Office Visit [facility] Surgical Oncology - [address] [phone] Adlofo Carreno MD [address] [place] [address] 2 [place] [phone] 04/05/2024 9:30 EDT Telemedicine [facility] - [facility] Palliative Care Services [address] [place] [address] [phone] Chichi Woods MD [address] [place] [address] [phone] 04/11/2024 15:00 EDT Telemedicine [facility] Hematology & Oncology [address] 218551 Alisson Carreon MD [address] [place] [address] [phone] 04/13/2024 13:30 EDT Appointment [facility] Hematology & Oncology [address] [phone] 04/13/2024 14:00 EDT Appointment [facility] Hematology & Oncology [address] 154811 04/16/2024 10:00 EST Telemedicine [facility] - [facility] Palliative Care Services [address] [place] [address] 064201 Chichi Woods MD [address] [place] [address], [address] [phone] 04/24/2024 9:00 EST Appointment [facility] Radiology CT Outpatient - [address] 551111 04/24/2024 11:00 EST Appointment [facility] Breast Imaging - [facility] S [place] [address] [place], [place] 167951 04/27/2024 12:00 EST Appointment [facility] Hematology & Oncology - [address] 074831 05/02/2024 15:00 EST Telemedicine [facility] Hematology & Oncology - [address] [phone] Alisson Carreon MD [address] [place] [address], Level [address] [place] [phone] 05/04/2024 10:15 EST Ancillary Procedure [facility] Cardiology - [place] [address] 05/04/2024 11:30 EST Appointment [facility] Hematology & Oncology - [address] [phone] 05/04/2024 12:00 EST Appointment [facility] Hematology & Oncology - [address] 838351 06/12/2024 13:00 EST Appointment [facility] Radiology CT - [address] [phone] documented as of this encounter Procedures Procedure Name Priority Date/Time Associated Diagnosis Comments HISTORICAL CASE UPDATE Today 03/30/2022 10:52 EDT Encounter for other general examination documented in this encounter Results * HISTORICAL CASE UPDATE (03/30/2022 10:52 EDT) Addendum Comment At the request of Dr. Augustina Colin, a block from [id number] (A2) was sent to [facility] for testing. For [facility] results, please see scanned report in EPIC. 04/14/2022 14:02 EDT [facility] Original (A2) 04/14/2022 14:02 EDT [facility] Original Case Specimen Source Liver 04/14/2022 14:02 T [facility] Original Case Date of Service 01/08/2022 04/14/2022 14:02 T [facility] Attestation By the signature below, the attending physician certifies that they have 1) personally conducted a gross and/or microscopic examination of the described specimen(s), and/or personally interpreted the results of laboratory testing of the described specimen(s), and 2) personally rendered or confirmed the above diagnosis. 04/14/2022 14:02 T [facility] at 1402 Surgical pathology service (qualifier value) ENTIRE LIVER / Unknown 03/30/2022 10:52 EDT 03/30/2022 10:53 EDT Augustina Colin MD PhD PATHOLOGY ORDERABLES [facility] [address] [place] [address] documented in this encounter Visit Diagnoses Diagnosis Encounter for other general examination documented in this encounter Additional Health Concerns Infection Onset Date Last Indicated Resolved Time R/O COVID-19 12/12/2023 12/12/2023 12/12/2023 15:3 5 EDT R/O COVID-19 01/08/2024 01/08/2024 01/08/2024 18:2 6 EDT R/O COVID-19 01/16/2024 01/16/2024 01/16/2024 17:5 0 EDT documented as of this encounter Care Teams Production Director Relationship Specialty Start Date End Date Linda Blancas MD [facility] [address] [place] [address] PCP - General 01/06/11 Adolfo Carreno MD [address] [place] [address] [phone] General Surgery 04/26/19 Augustina Colin MD PhD [address] [place] [phone] Medical Oncology 04/26/19 documented as of this encounter
--- OUTSIDE RECORDS SUMMARY | 2024-03-20 14:49 | XMS_ITS | Encounter Summary ---
Author Organization [facility] Address [address] [place] [address] Care Team Providers Care Newspaper Illustrator Name Role Phone Linda Blancas MD Primary Care Provider [phone] Adolfo Carreno MD Unavailable [phone] Augustina Coiln MD PhD Unavailable Unavailable Reason for Visit * Reason Comments Follow-up Encounter Details Date Type Department Care Team (Late st Contact Info) Description 03/18/2022 15:30 EDT Telemedicine [facility] Hematology & Oncology - Main [place] [address], [place] [address] Augustina Colin, MD PhD Malignant neoplasm of [...] Notes * Augustina Colin MD PhD - 03/18/2022 1530 EDT REASON FOR OFFICE VISIT: ??Discussion of [...] of ER+ DCIS. a. ??Ultrasound performed in [place]??identifying an irregular heterogeneous soft tissue mass measuring 1.2 x 1.2 x 1.5 cm. ?? 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 ??HER-2 1+ by IHC. ??ANNE MARIE revealed [...] breast tumor 07/07/17 and placement of tissue investment banking associate. ??1.9 cm tumor at time of surgery, [...] FORMULA ORAL) Take by mouth daily. ??? mv-mn/C/glutamin/lysin/llio096 (A[place], ASCORBATE SODIUM, ORAL) Take by mouth [...] absence of malignant disease. Assayed on Siemens BuildingLayeraur XPT using chemiluminescent technology. ??Values obtained by [...] Home Patient location state: Visit Location State: [place] The location of the provider: Office Provider location state: Visit Location State: [place] The following people and their roles were present for today's visit: Appointment Provider: Augustina Colin MD PhD Augustina Colin MD PhD documented in this encounter Plan of Treatment Upcoming Encounters Date Type Department Care Team (Late st Contact Info) Description 04/02/2024 10:30 EDT Appointment [facility] Interventional Radiology Unit [address] [place] [address] [phone] 04/02/2024 15:15 EDT Office Visit [facility] Surgical Oncology - [address] [phone] Adolfo Carreno MD 111 [facility], [facility] 2 [place] [phone] 04/05/2024 9:30 EDT [facility] [address], [place] [phone] Chichi Woods MD 111 [facility], [address] [phone] 04/11/2024 15:00 EDT Telemedicine [facility] Hematology & Oncology - [facility] [address], [place] [phone] Alisson Carreon MD [address] [place] [address], [facility] 2 [place] [phone] 04/13/2024 13:30 EDT Appointment [facility] Hematology & Oncology - [address] 939401 04/13/2024 14:00 EDT Appointment [facility] Hematology & Oncology - [address] 705401 04/16/2024 10:00 EST Telemedicine [facility] - [facility] Palliative Care Services [address] [place] [address] [phone] Chichi Woods MD [address] [place] [address] [phone] 04/24/2024 9:00 EST Appointment [facility] Radiology CT Outpatient - [address] [id number] 04/24/2024 11:00 EST Appointment [facility] Breast Imaging - [facility] S [address] [phone] 04/27/2024 12:00 EST Appointment [facility] Hematology & Oncology - [address] [id number] 05/02/2024 15:00 EST Telemedicine [facility] Hematology & Oncology - [address] 367991 Alisson Carreon MD [address] [place] [address], [facility] 2 [place] [phone] 05/04/2024 10:15 EST Ancillary Procedure [facility] Cardiology - [address] [place], [place] [phone] 05/04/2024 11:30 EST Appointment [facility] Hematology & Oncology - [address] [address] 05/04/2024 12:00 EST Appointment [facility] Hematology & Oncology - [address] [address] 06/12/2024 13:00 EST Appointment [facility] Radiology CT - [address] [address] documented as of this encounter Visit Diagnoses Diagnosis Malignant neoplasm of right female breast, unspecified estrogen receptor status, unspecified site of breast ([facility] Primary documented in this encounter Care Teams Newspaper Illustrator Relationship Specialty Start Date End Date Linda Blancas MD [facility] [address] [place] [address] PCP - General 01/06/11 Adolfo Carreno MD [address] [place] [address] [phone] General Surgery 04/26/19 Augustina Colin MD PhD [address] [place] [phone] Medical Oncology 04/26/19 documented as of this encounter
--- OUTSIDE RECORDS SUMMARY | 2024-03-20 14:49 | XMS_ITS | Encounter Summary ---
Author Organization [facility] Address [address] [place] [address] Care Team Providers Care Molecular Spectroscopist Name Role Phone Linda Blancas MD Primary Care Provider Adolfo Carreno MD Unavailable [phone] Augustina Colin MD PhD Unavailable Unavailable Reason for Visit * Reason Onset Date Comments Appointment Related 03/18/2022 Encounter Details Date Type Department Care Team (Late st Contact Info) Description 03/18/2022 Telephone [facility] [address] [place], [place] [phone] Augustina Colin, PhD Appointment Related Social History [...] encounter Miscellaneous Notes * Telephone Encounter - Jessie Barber - 03/18/2022 0842 EDT Screening Questions prior to Med Release [...] is your ordering provider aware? no 4. Have you had a recent COVID vaccination or have one scheduled? If so, does your ordering provider aware? no 5. (for Remicade, Entyvio, Renflexis, Rituximab, Ocrevus, pts, 'mab' patients) Have you had any recent surgeries in the last month or have any planned in the near future? no documented in this encounter Plan of Treatment Upcoming Encounters Date Type Department Care Team (Late st Contact Info) Description 04/02/2024 10:30 EDT Appointment [facility] Interventional Radiology Unit [address] [place] [address] [phone] 04/02/2024 15:15 EDT Office Visit [facility] Surgical Oncology - [facility] [address] [place], [place] [phone] Adolfo Carreno MD [address] [place] [address], Level [address] [place] [phone] 04/05/2024 9:30 EDT Telemedicine [facility] - [facility] Palliative Care Services [address] [place] [address] [phone] Chichi Woods MD [address] [place] [address] [address] [place] [phone] 04/11/2024 15:00 EDT Telemedicine [facility] Hematology & Oncology - [address] 952151 Alisson Carreon MD [address] [place] [address] 2 [place] [phone] 04/13/2024 13:30 EDT Appointment [facility] Hematology & Oncology - [address] [phone] 04/13/2024 14:00 EDT Appointment [facility] Hematology & Oncology - [address] [phone] 04/16/2024 10:00 EST Telemedicine [facility] - [facility] Palliative Care Services [address] [place] [address] [phone] Chichi Woods MD [address] [place] [address] [phone] 04/24/2024 9:00 EST Appointment [facility] Radiology CT Outpatient - [address] [id number] 04/24/2024 11:00 EST Appointment [facility] Breast Imaging - [address] [id number] 04/27/2024 12:00 EST Appointment [facility] Hematology & Oncology - [address] [id number] 05/02/2024 15:00 EST Telemedicine [facility] Hematology & Oncology - [address] 221001 Alisson Carreon MD [address] [place] [address] 2 [place] [phone] 05/04/2024 10:15 EST Ancillary Procedure [facility] Cardiology - [address] [place] [address] 05/04/2024 11:30 EST Appointment [facility] Hematology & Oncology [address] 106171 05/04/2024 12:00 EST Appointment [facility] Hematology & Oncology [address] 740001 06/12/2024 13:00 EST Appointment [facility] Radiology CT - [address] [phone] documented as of this encounter Visit Diagnoses Not on filedocumented in this encounter Care Teams Molecular Spectroscopist Relationship Specialty Start Date End Date Linda Blancas MD [facility] [address] [place] [address] PCP - General 01/06/11 Adolfo Carreno MD [address] [place] [address] [phone] General Surgery 04/26/19 Augustina Colin MD PhD [address] [place] [phone] Medical Oncology 04/26/19 documented as of this encounter
--- OUTSIDE RECORDS SUMMARY | 2024-03-20 14:49 | XMS_ITS | Encounter Summary ---
Author Organization [facility] Address [address] [place] [address] Care Team Providers Care Computer Systems Auditor Name Role Phone Linda Blancas MD Primary Care Provider [phone] Adolfo Carreno MD Unavailable [phone] Augustina Colin MD PhD Unavailable Unavailable Encounter Details Date Type Department Care Team (Late st Contact Info) Description 02/26/2022 Orders Only [facility] Radiology - Main [place] [address] [place] [address] Pretty Thornton MD [address] [place] [phone] Social History Tobacco Use Types [...] [facility] [address] [place] [address] [phone] 04/02/2024 15:15 EDT Office Visit [facility] Surgical Oncology - [address] [phone] Adolfo Carreno MD [address] [place] [address] 2 [place] [phone] 04/05/2024 9:[address] [facility] - [facility] Palliative Care Services [address] [place] [address] [phone] Chichi Woods MD [address] [place] [address] [phone] 04/11/2024 15:00 EDT Telemedicine [facility] Hematology & Oncology - [address] 252921 Alisson Carreon MD [address] [place] [address] 2 [place] [phone] 04/13/2024 13:30 EDT Appointment [facility] Hematology & Oncology [address] [phone] 04/13/2024 14:00 EDT Appointment [facility] Hematology & Oncology - [address] 747301 04/16/2024 10:[address] [facility] - [facility] Palliative Care Services [address] [place] [address] [phone] Chichi Woods MD [address] [place] [address], [address] [phone] 04/24/2024 9:00 EST Appointment [facility] Radiology CT Outpatient - [address] [phone] 04/24/2024 11:00 EST Appointment [facility] Breast Imaging - [facility] S [address] [id number] 04/27/2024 12:00 EST Appointment [facility] Hematology & Oncology - [address] [phone] 05/02/2024 15:00 EST Telemedicine [facility] Hematology & Oncology - [address] 555571 Alisson Carreon MD [address] [place] [address], Level [address] [place] [phone] 05/04/2024 10:15 EST Ancillary Procedure [facility] Cardiology [place] [place] [address] 05/04/2024 11:30 EST Appointment [facility] Hematology & Oncology - [address] [phone] 05/04/2024 12:00 EST Appointment [facility] Hematology & Oncology - [address] [address] 06/12/2024 13:00 EST Appointment [facility] Center Radiology CT - [address] 912521 documented as of this encounter Visit Diagnoses Not on filedocumented in this encounter Care Teams Computer Systems Auditor Relationship Specialty Start Date End Date Linda Blancas MD [address] [place] [address] 30 [place] [address] PCP - General 01/06/11 Adolfo Carreno MD [address] [place] [address] [phone] General Surgery 04/26/19 Augustina Colin MD PhD [address] [place] [phone] Medical Oncology 04/26/19 documented as of this encounter
--- OUTSIDE RECORDS SUMMARY | 2024-03-20 14:49 | XMS_ITS | Encounter Summary ---
Author Organization [facility] Address [address] [place] [address] Care Team Providers Care Interchange Agent Name Role Phone Linda Blancas MD Primary Care Provider [phone] Adolfo Carreno MD Unavailable [phone] Augustina Colin MD PhD Unavailable Unavailable Encounter Details Date Type Department Care Team (Late st Contact Info) Description 03/26/2022 Documentation Visit [facility] Hematology & Oncology - [facility] [address] [place] [address] Garima Boyce, SHELLEY Social History Tobacco Use [...] of this encounter Progress Notes * Garima Boyce RN - 03/26/2022 8126 EDT [facility] testing request submitted online. documented in this encounter Plan of Treatment Upcoming Encounters Date Type Department Care Team (Late st Contact Info) Description 04/02/2024 10:30 EDT Appointment [facility] Interventional Radiology Unit [address] [place] [address] [phone] 04/02/2024 15:15 EDT Office Visit [facility] Surgical Oncology - [address] [phone] Adolfo Carreno MD [address] [place] [address] 2 [place] [phone] 04/05/2024 9:[address] [facility] - [facility] Palliative Care Services [address] [place] [address] [phone] Chichi Woods MD [address] [place] [address] [phone] 04/11/2024 15:00 EDT Telemedicine [facility] Hematology & Oncology [address] [phone] Alisson Carreon MD [address] [place] [address] 2 [place] [phone] 04/13/2024 13:30 EDT Appointment [facility] Hematology & Oncology - [address] [address] 04/13/2024 14:00 EDT Appointment [facility] Hematology & Oncology [address] 997111 04/16/2024 10:[address] [facility] - [facility] Palliative Care Services [address] [place] [address] [phone] Chichi Woods MD [address] [place] [address] [phone] 04/24/2024 9:00 EST Appointment [facility] Radiology CT Outpatient - [address] [id number] 04/24/2024 11:00 EST Appointment [facility] Breast Imaging - [facility] S [address] [id number] 04/27/2024 12:00 EST Appointment [facility] Hematology & Oncology - [address] [phone] 05/02/2024 15:00 EST Telemedicine [facility] Hematology & Oncology [address] 711471 Alisson Carreon MD [address] [place] [address], Level [address] [place] [phone] 05/04/2024 10:15 EST Ancillary Procedure [facility] Cardiology [place] [address] 05/04/2024 11:30 EST Appointment [facility] Hematology & Oncology [address] [phone] 05/04/2024 12:00 EST Appointment [facility] Hematology & Oncology [address] 000151 06/12/2024 13:00 [facility] Radiology CT - [address] [address] documented as of this encounter Visit Diagnoses Not on filedocumented in this encounter Care Teams Interchange Agent Relationship Specialty Start Date End Date Linda Blancas MD [facility] [address] [place] [address] PCP - General 01/06/11 Adolfo Carreno MD [address] [place] [address], [facility] 2 [place] [phone] General Surgery 04/26/19 Augustina Colin MD PhD [address] [place] [address], [facility] 2 [place] [phone] Medical Oncology 04/26/19 documented as of this encounter
--- OUTSIDE RECORDS SUMMARY | 2024-03-20 14:49 | XMS_ITS | Encounter Summary ---
Author Organization [facility] Address [address] [place] [address] Care Team Providers Care Pressure Supervisor Name Role Phone Linda Blancas MD Primary Care Provider [phone] Adolfo Carreno MD Unavailable [phone] Augustina Colin MD PhD Unavailable Unavailable Encounter Details Date Type Department Care Team (Late st Contact Info) Description 03/18/2022 Orders Only [facility] Radiology - Main [place] [address] [place], [place] [address] Sudheer Eli DO Social History Tobacco Use Types Packs/Day Years [...] [facility] Interventional Radiology Unit [address] [place] [address] [phone] 04/02/2024 15:15 EDT Office Visit [facility] Surgical Oncology - [address] [phone] Adolfo Carreno MD [address] [place] [address] [phone] 04/05/2024 9:30 EDT Telemedicine [facility] - [facility] Palliative Care Services [address] [place] [address] [phone] Chichi Woods MD [address] [place] [address] [phone] 04/11/2024 15:00 EDT Telemedicine [facility] Hematology & Oncology [address] 649001 Alisson Carreon MD [address] [place] [address] [phone] 04/13/2024 13:30 EDT Appointment [facility] Hematology & Oncology [address] 019001 04/13/2024 14:00 EDT Appointment [facility] Hematology & Oncology [address] 961481 04/16/2024 10:00 EST Telemedicine [facility] - [facility] Palliative Care Services [address] [place] [address] [phone] Chichi Woods MD [address] [place] [address], [place] [address] [place] [phone] 04/24/2024 9:00 EST Appointment [facility] Radiology CT Outpatient - [address] [id number] 04/24/2024 11:00 EST Appointment [facility] Breast Imaging - [facility] 1 [place], [place] 988271 04/27/2024 12:00 EST Appointment [facility] Hematology & Oncology - [address] 814341 05/02/2024 15:00 EST Telemedicine [facility] Hematology & Oncology - [address] [phone] Alisson Carreon MD [address] [place] [address], [facility], Level [address] [place] [phone] 05/04/2024 10:15 EST Ancillary Procedure [facility] Cardiology - [address] [place], [place] [phone] 05/04/2024 11:30 EST Appointment [facility] Hematology & Oncology - [address] [phone] 05/04/2024 12:00 EST Appointment [facility] Hematology & Oncology [address] [phone] 06/12/2024 13:00 EST Appointment [facility] Radiology CT - [address] [phone] documented as of this encounter Visit Diagnoses Not on filedocumented in this encounter Care Teams Pressure Supervisor Relationship Specialty Start Date End Date Linda Blancas MD [facility] [address] [place] [address] PCP - General 01/06/11 Adolfo Carreno MD [address] [place] [address], [facility] 2 [place] [phone] General Surgery 04/26/19 Augustina Colin MD PhD [address] [place] [address], [facility] 2 [place] [phone] Medical Oncology 04/26/19 documented as of this encounter
--- OUTSIDE RECORDS SUMMARY | 2024-03-20 14:49 | XMS_ITS | Encounter Summary ---
Author Organization [facility] Address [address] [place] [address] Care Team Providers Care Classified Copy Control Clerk Name Role Phone Linda Blancas MD Primary Care Provider [phone] Adolfo Carreno MD Unavailable [phone] Augustina Colin MD PhD Unavailable Unavailable Reason for Referral * Radiology Services (Routine/Next Available) - Specialty Report Received Specialty Diagnoses / Procedures [facility] Referred To Contact Diagnoses Liver metastasis Procedures IR EMBOLIZATION GA VASCULAR EMBOLIZE/OCCLUDE ORGAN TUMOR INFARCT David Moya MD [address] [address] [facility] Referral ID Status Reason Start Date Expiration Date V isits Requested Visits Authorized [id number] Specialty Report Received 03/16/2022 1 1 Reason for Visit * Radiology Services (Routine/Next Available) - Specialty Report Received Specialty Diagnoses / Procedures Referred By Doug hearn Referred To Contact Diagnoses Liver metastasis Procedures IR EMBOLIZATION GA VASCULAR EMBOLIZE/OCCLUDE ORGAN TUMOR INFARCT David Moya MD [address] [address] [facility] Referral ID Status Reason Start Date Expiration Date V isits Requested Visits Authorized [id number] Specialty Report Received 03/16/2022 1 1 Encounter Details Date Type Department Care Team (Late st Contact Info) Description 04/07/2022 6:31 EDT - 04/07/2022 6:33 EDT Hospital Encounter [facility] Interventional Radiology Unit [address], [place] [address] David Moya MD 111 [facility] [place], [address] [place] [address] Ingris Chin DO [address] [address] Liver metastasis (HCC-CMS) (HCC) (HCC-CMS) Discharge Disposition: [...] this encounter Discharge Instructions * Discharge Instructions* Valerie Adair RN - 04/07/2022 13:24 EDT [facility] Interventional Radiology Patient Discharge Education Preparatory Angiogram [...] dose is given (at your next visit). You have had a mesenteric angiogram performed through a small incision in the artery in your left wrist . Your artery was closed using the following method: TR Band, and then a Gauze and Tegaderm Dressing. Care of your Incision: For your left wrist incision, keep the area clean and [...] which may last up to 6 weeks. If you note any signs of bleeding, such as a saturated dressing, or bulging under the skin (size ofa golf ball or larger), put DIRECT PRESSURE [...] hours of the procedure. EXPECTED SIDE EFFECTS: ??? You may have side effects from the medications used during the procedure to keep you comfortable. Many describe this feeling as a slight ???hang-over?? . Nausea may occur due to these medicationsbut usually does not last longer than 12-24 hours. ??? Aside from this and soreness at the catheter insertion site, you should not have many side effects. Follow-up ??? If you are not already scheduled for your treatment procedure, you will be called shortly afterthis procedure to discuss open dates. Please call us at [phone] if you have not heard from us within 1 week. ?? IF YOU HAVE ANY QUESTIONS OR CONCERNS OR IF YOU HAVE DEVELOPED ANY OF THE SYMPTOMS ABOVE, PLEASECALL THE INTERVENTIONAL RADIOLOGY CLINIC AT [phone], OPTION 2 TO REACH THE NURSE TRIAGE LINE. THERE WILL BE ASSISTANCE AVAILABLE 24 HOURS A DAY. IF YOU CALL AFTER HOURS YOU WILL BE CONNECTED WITH AN ON-CALL PHYSICIAN BY PRESSING 1. documented in [...] Tablets by mouth as needed. 12/07/2023 mv-mn/C/glutamin/lysin /choq030 (AIRBORNE, ASCORBATE SODIUM, ORAL) Take by mouth [...] documented in this encounter Progress Notes * Kiera Barron RN - 04/07/2022 0700 EDT Have you had any of the following symptoms? Fever YES/NO: No Cough/Chest congestion/Difficulty breathing YES/NO: No Sore throat or loss of taste / smell?YES/NO: No Chills YES/NO: No Joint Pain or weakness YES/NO: No Vomiting, abdominal pain, diarrhea (more common in children) YES/NO: No Severe headache YES/NO: No New loss of taste or smell YES/NO: No See admission vital signs assessment for temperature. Sunshine Subramanian arrived to the Cardiovascular Unit via ambulation. Patient alert and oriented x3. Transfers to stretcher independently. Patient stretcher in low position with side rails up & call pak within patient reach. Patient's family is at bedside. Patient's discharge plan is home with family. * Aisha Goodson RN - 04/07/2022 0700 EDT Labs, Medication, allergies, Pt history reviewed. Pt greeted in CVU ID'd by name, and viewed name Bracelet. Pt in room time - 0830 . Assessed IV. As the nurse in the room I reviewed the procedure and sedation with Sendy. Pt acknowledges hher questions have been answered and verbalizes understanding of procedure, conscious sedation. . Consent for the procedure and sedation reviewed. Pt positioned supine on the angio 22 table. padding under elbows, Safety straps in place. VS assessed. Administration of conscious sedation began at 0845 . Sterile prep of left hand/wrist forearm with duraprep by RLB in the usual sterile fashion and in compliance with laser set up operator recommendation. Caba moment at start of procedure y-90 mapping At 0904 between GMS, ELP, RLB, MIRANDA . At start of the procedure the patient is awake Ultrasound guided left radial access, Radial artery cocktail administered by MD: verapamil 2.5 mg IA, Heparin 3000 units IA, Nitro 200 mcg IA at 0918 Fluoro guided mesenteric angiogram and IA administration of Tc-99 MAA at MD during procedure in [id number] TR band with 13 cc air applied to left radial puncture site at 1008 Defer to Physicians note for procedure outcomes Medications administered during the procedure, in divided doses, Versed 3.5 Mg Fentanyl 100 Mcg IV. Pt tolerated procedure well. Report called to Brianda ROSA CVU, Verbal report to JESENIA ROSA who will be transporting Sendy to/and monitoring Sendy during Nuc scan Discharge instructions entered in [facility] * Kiera Barron, SHELLEY - 04/07/2022 0700 EDT Patient arrived to CVU #9 via stretcher s/p y-90 mapping. Site c/d/I. +CSMTs. Alert and oriented x3. VSS on RA. Tolerating PO intake. Orthos complete. Tolerating ambulation. Denies pain, SOB, nausea, lightheadedness or dizziness. Family at bedside. MD Chin in to assess pt. Per Giuseppe BROWN, ok for discharge. MD Scriver at bedside 1319. AVS reviewed. IV removed. Patient discharged to home via with . documented in this encounter H&P Notes * Ingris Chin DO - 04/07/2022 0700 EDT The preoperative history and physical which was performed within 30 days of this procedure has been reviewed and the clinically appropriate elements of the physical examination have been repeated. There are no changes to the documented history and physical or if so such changes are documented below 61 y.o. woman with metastatic breast cancer presents for angiography mapping and Tc99 MAA administration for lobar Y90 planning. Physical Exam General: AAOx3, NAD CV: RRR Resp: CTAB Abd: soft, nontender Extremities: warm, well perfused Plan: Proceed with procedure as planned. Ingris Chin DO 04/07/2022 8:09 Source Note - Augustina Colin MD PhD [...] of ER+ DCIS. a. ??Ultrasound performed in [place]??identifying an irregular heterogeneous soft tissue mass measuring 1.2 x 1.2 x 1.5 cm. ?? 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 ??HER-2 1+ by IHC. ??ANNE MARIE revealed [...] breast tumor 07/07/17 and placement of tissue pattern clerk. ??1.9 cm tumor at time of surgery, [...] FORMULA ORAL) Take by mouth daily. ??? mv-mn/C/glutamin/lysin/ithk723 (AIRBORNE, ASCORBATE SODIUM, ORAL) Take by mouth [...] Procedure Notes * David Moya MD - 04/07/2022 0700 EDT INTERVENTIONAL RADIOLOGY BRIEF PROCEDURE NOTE Radiologist: Griffin / Giuseppe Procedure(s) Performed: Y90 mapping angiogram Indication/Pre-procedure diagnosis: Liver metastases Post-procedure diagnosis: Same Condition: Stable Anesthesia: Local with Sedation Approach: Left radial - TR band Medications: IA NTG, Verapamil, heparin, IV Versed and fentanyl and local lidocaine 1% Contrast: 25 cc Fluoro time: 4.8 min EBL: Minimal Specimens: None Findings: Injected MAA into right hepatic artery A time-out was completed prior to procedure verifying correct patient, procedure, site, positioning, and special equipment if applicable. Complications: None Recommendations: Per orders. Please refer to final dictated report (Chart Review, Imaging tab in PRISM) for complete findings and recommendations. Roosevelt Moya MD Interventional Radiologist Pager #[phone] documented in this encounter Plan of Treatment Upcoming Encounters Date Type Department Care Team (Late st Contact Info) Description 04/02/2024 10:30 EDT Appointment [facility] Interventional Radiology Unit [address] [place] [phone] 04/02/2024 15:15 EDT Office Visit [facility] Surgical Oncology - [address] [id number] Adolfo Carreno MD [address] [place] [phone] 04/05/2024 9:30 EDT Telemedicine [facility] [address] [place] [address] [phone] Chichi Woods MD [address] [place] [phone] 04/11/2024 15:00 EDT Telemedicine [facility] Hematology & Oncology - [address] [phone] Alisson Carreon MD [address] [place] [phone] 04/13/2024 13:30 EDT Appointment [facility] Hematology & Oncology [address] [id number] 04/13/2024 14:00 EDT Appointment [facility] Hematology & Oncology [address] [phone] 04/16/2024 10:00 EST Telemedicine [facility] [address] [place] [address] [phone] Chichi Woods MD [address] [place] [address] [phone] 04/24/2024 9:00 EST Appointment [facility] Radiology CT Outpatient - [address] [phone] 04/24/2024 11:00 EST Appointment [facility] Breast Imaging - [facility] [place] [address] [place], [place] [phone] 04/27/2024 12:00 EST Appointment [facility] Hematology & Oncology - [address] [phone] 05/02/2024 15:00 EST Telemedicine [facility] Hematology & Oncology [address] [phone] Alisson Carreon MD [address] [place] [address], [address] [place] [phone] 05/04/2024 10:15 EST Ancillary Procedure [facility] Cardiology [place] [place] [address] 05/04/2024 11:30 EST Appointment [facility] Hematology & Oncology [address] [id number] 05/04/2024 12:00 EST Appointment [facility] Hematology & Oncology [address] [phone] 06/12/2024 13:00 EST Appointment [facility] Radiology CT - [address] [phone] documented as of this encounter Procedures Procedure Name Priority Date/Time Associated Diagnosis Comments IR EMBOLIZATION Routine 04/07/2022 10:18 EDT Liver metastasis (HCC-CMS) (HCC) (HCC-CMS) documented in this encounter Results * IR EMBOLIZATION (04/07/2022 10:18 EDT) Anatomical Region Laterality Modality N/A X-Ray Angiograph y 04/09/2022 8:23 EDT Impressions 04/09/2022 8:23 EDT 1. Mapping visceral angiogram in planning for radioembolization, as described. 2. Administration of Tc 99m-MAA to the right hepatic lobe. Patient will be sent to nuclear medicine for scintigraphic imaging and calculation of liver lung shunt. Dr. David Moya was present for and supervised the entire procedure. I have personally reviewed the images and the above interpretation and agree with the findings. Narrative 04/09/2022 8:23 EDT IR EMBOLIZATION 04/07/2022 7:00 AM Comparisons: CTA abdomen 03/31/2022 Patient: SUNSHINE SUBRAMANIAN Attending physician(s): Dr. David Moya Fellow physician(s): Dr. Ingris Chin Resident physician(s): None Advanced practice provider(s): None Preprocedure diagnosis: Metastatic breast cancer Postprocedure diagnosis: Same Indication: Visceral mapping for proposed yttrium-90 radioembolization Procedure Summary: - Left radial artery access with ultrasound guidance - Selective mesenteric angiography: Celiac angiography - Superselective mesenteric angiography (third order selection): Performed as described below - Additional procedure(s): Advanced imaging with cone beam CT - Administration of technetium 99m macroaggregated albumin via microcatheter Anesthesia: Conscious sedation with midazolam and fentanyl, performed by independent trained observer under attending supervision with continuous monitoring of the patient's level of consciousness and physiologic status, including heart rate, blood pressure, respiratory rate, and oxygen saturation. Additional Medications: Local lidocaine. Anti-spasmodic solution of 2.5 mg of verapamil, 3000 units of heparin, and 200 mcg of nitroglycerin. Access: 5 Kuwaiti slender sheath left radial access Hemostasis: TR band Narrative: Informed consent for the procedure (including [...] correct procedure, and the correct site. Preprocedure Javon test of the left wrist was performed, [...] The needle was exchanged for a 5 Kuwaiti slender sheath. Anti-spasmodic solution of 2.5 mg of verapamil, 3000 units of heparin, and 200 mcg of nitroglycerin was admixed with blood and administered via the sheath side-port over the course of one minute. A 1.5J Glidewire was preloaded into a [employer] radial catheter and the system was advanced through the descending thoracic aorta to the abdominal aorta. The wire was retracted and the catheter was utilized to select the celiac artery. Angiogram of the celiac artery demonstrated normal trifurcation with normal caliber vessels. Mild stenosis of the proximal common hepatic artery. The Progreat microcatheter and Fathom microwire were used to select the right hepatic artery (third order selection). Angiogram of the right hepatic artery revealed a couple small inferior medially oriented vessels. Otherwise, the right hepatic branching vessels are unremarkable. Advanced imaging was performed with cone beam CT from the level of the distal main right hepatic artery, demonstrating a few hypervascular small lesion and good opacification of the right hepatic lobe. Some contrast was noted about the gallbladder wall. [id number] was administered from this level for subsequent scintigraphic evaluation. The catheter was flushed. The catheters were removed. A TR band was applied to the left wrist, the sheath was removed, and patent hemostasis was achieved with 13 mL of air via the TR band. The patient tolerated the procedure well. There were no immediate complications. Additional Findings: None Estimated blood loss (mL): Trace Contrast Contrast agent: Omnipaque 350 Contrast volume (mL): 25 Radiation Dose Fluoroscopy time (minutes): 4.5 ?? Reference air kerma (mGy): 361 Procedure Note David Moya MD - 04/09/2022 IR EMBOLIZATION 04/07/2022 7:00 AM Comparisons: CTA abdomen 03/31/2022 Patient: SUNSHINE SUBRAMANIAN Attending physician(s): Dr. David Moya Fellow physician(s): Dr. Ingris Chin Resident physician(s): None Advanced practice provider(s): None Preprocedure diagnosis: Metastatic breast cancer Postprocedure diagnosis: Same Indication: Visceral mapping for proposed yttrium-90 radioembolization Procedure Summary: - Left radial artery access with ultrasound guidance - Selective mesenteric angiography: Celiac angiography - Superselective mesenteric angiography (third order selection): Performedas described below - Additional procedure(s): Advanced imaging with cone beam CT - Administration of technetium 99m macroaggregated albumin viamicrocatheter Anesthesia: Conscious sedation with midazolam and fentanyl, performed byindependent trained observer under attending supervision with continuousmonitoring of the patient's level of consciousness and physiologic status,including heart rate, blood pressure, respiratory rate, and oxygensaturation. Additional Medications: Local lidocaine. Anti-spasmodic solution of 2.5 mgof verapamil, 3000 units of heparin, and 200 mcg of nitroglycerin. Access: 5 Kuwaiti slender sheath left radial access Hemostasis: TR band Narrative: Informed consent for the procedure (including [...] ultrasound. The needle wasexchanged for a 5 Kuwaiti slender sheath. Anti-spasmodic solution of 2.5 mgof [...] celiacartery. Angiogram of the celiac artery demonstrated normal trifurcationwith normal caliber vessels. Mild stenosis of the proximal common hepaticartery. The Progreat microcatheter and Fathom microwire were used toselect the right hepatic artery (third order selection). Angiogram of theright hepatic artery revealed a couple small inferior medially orientedvessels. Otherwise, the right hepatic branching vessels are unremarkable.Advanced imaging was performed with cone beam CT from the level of thedistal main right hepatic artery, demonstrating a few hypervascular smalllesion and good opacification of the right hepatic lobe. Some contrast wasnoted about the gallbladder wall. [id number] was administered from thislevel for subsequent scintigraphic evaluation. The catheter was flushed. The catheters were removed. A TR band was applied to the left wrist, thesheath was removed, and patent hemostasis was achieved with 13 mL of airvia the TR band. The patient tolerated the procedure well. There were noimmediate complications. Additional Findings: None Estimated blood loss (mL): Trace Contrast Contrast agent: Omnipaque 350 Contrast volume (mL): 25 Radiation Dose Fluoroscopy time (minutes): 4.5 Reference air kerma (mGy): 361 IMPRESSION 1. Mapping visceral angiogram in planning for radioembolization, asdescribed. 2. Administration of Tc 99m-MAA to the right hepatic lobe. Patient will besent to nuclear medicine for scintigraphic imaging and calculation ofliver lung shunt. Dr. David Moya was present for and [...] intravenous, ONCE PRN, 1 dose, Starting on Tue04/07/22 at 0813, Until Tue04/07/22 at 1010, Other, Radiology Procedure, Routine, Preprocedure Given 04/07/2022 10:10 EDT 100 mcg heparin 1,000 unit/mL injection 3,000 Units 3,000 Units, intravenous, NOW X1, 1 dose, On Tue04/07/22 at 0830, Preprocedure Given by Other 04/07/2022 9:18 EDT 3,000 Units hydrocortisone sodium succinate (PF) (SOLU-CORTEF) injection 100 mg 100 mg, intravenous, Once (Without Time Specified), 1 dose, Starting on Tue04/07/22 at 0719, Until Tue04/07/22 at 0847, Routine, Preprocedure Given 04/07/2022 8:47 EDT 100 mg iohexoL (OMNIPAQUE 350) solution 100 mL 100 mL, intra-arterial, Once in imaging, 1 dose, Starting on Tue04/07/22 at 0954, Until Tue04/07/22 at 1012, Routine Given 04/07/2022 10:12 EDT 5 mL iohexoL (OMNIPAQUE 350) solution 100 mL 100 mL, intra-arterial, Once in imaging, 1 dose, Starting on Tue04/07/22 at 0954, Until Tue04/07/22 at 1012, Routine Given 04/07/2022 10:12 EDT 20 mL lidocaine-prilocaine (EMLA) 2.5-2.5 % cream topical, Once (Without Time Specified), 1 dose, Starting on Tue04/07/22 at 0737, Until Tue04/07/22 at 0804, Preprocedure Given 04/07/2022 8:04 EDT midazolam (MDV) (VERSED) injection 0.5-10 mg 0.5-10 mg, intravenous, ONCE PRN, 1 dose, Starting on Tue04/07/22 at 0813, Until Tue04/07/22 at 1011, Sedation, Routine, Preprocedure Given 04/07/2022 10:11 EDT 3.5 mg nitroGLYCERIN (NITROGLYN) 2 % ointment 0.5 Inch 0.5 Inch, topical, Once (Without Time Specified), 1 dose, Starting on Tue04/07/22 at 0719, Until Tue04/07/22 at 0803, Routine, Preprocedure Given 04/07/2022 8:03 EDT 0.5 Inches nitroGLYcerin 25 mg/250 mL (100 mcg/mL) infusion 200 mcg 200 mcg, intra-arterial, CONTINUOUS, Starting on Tue04/07/22 at 0830, Until Tue04/09/22 at 0203, Preprocedure New Bag 04/07/2022 9:18 EDT 200 mcg nitroGLYcerin 25 mg/250 mL (100 mcg/mL) infusion 500 mcg 500 mcg, intravenous, PRE-OP ONCE, 1 dose, On Tue04/07/22 at 0830, Routine, Intraprocedure Given by Other 04/07/2022 9:14 EDT 500 mcg ondansetron (PF) (ZOFRAN) injection 4 mg 4 mg, intravenous, Once (Without Time Specified), 1 dose, Starting on Tue04/07/22 at 0719, Until Tue04/07/22 at 0845, Routine, Preprocedure Given 04/07/2022 8:45 EDT 4 mg sodium chloride 0.9 % (NS) infusion 50 mL/hr, intravenous, CONTINUOUS, Starting on Tue04/07/22 at 0745, Until Tue04/09/22 at 0203, Routine, Preprocedure Rate Documented 04/07/2022 12:10 EDT 50 mL/hr 50 mL/hr New Bag 04/07/2022 7:46 EDT 50 mL/hr 50 mL/hr verapamil (ISOPTIN) injection 2.5 mg 2.5 mg, intra-arterial, NOW X1, 1 dose, On Tue04/07/22 at 0830, Routine, Preprocedure Given by Other 04/07/2022 9:18 EDT 2.5 mg documented in this encounter Orders Medications Ordered That Vj ht Not Have Been Administered Count Last Ordered Date First Ordered Date ampicillin-sulbactam (UNASYN ) 3,000 mg in sodium chloride (NS MBP) 100 mL IVPB 1 04/07/2022 lidocaine (PF) 10 mg/mL (1 % ) injection 2 mg 1 04/07/2022 lidocaine-prilocaine (EMLA) 2.5-2.5 % cream 1 04/07/2022 Discharge Count Last Ordered Date First Orde red Date DISCHARGE PATIENT 1 04/07/2022 documented in this encounter Care Teams Classified Copy Control Clerk Relationship Specialty Start Date End Date Linda Blancas MD [facility] [address] [place] [address] PCP - General 01/06/11 Adolfo Carreno MD [address] [place] [phone] General Surgery 04/26/19 Augustina Colin MD PhD [address] [place] [address] [address] [place] [phone] Medical Oncology 04/26/19 documented as of this encounter
--- OUTSIDE RECORDS SUMMARY | 2024-03-20 14:49 | XMS_ITS | Encounter Summary ---
Author Organization [facility] Address [address] [place] [address] Care Team Providers Care Wireless Internet Installer Name Role Phone Linda Blancas MD Primary Care Provider [phone] Adolfo Carreno MD Unavailable [phone] Augustina Colin MD PhD Unavailable Unavailable Reason for Visit * Medication Prior Authorization (See Order Priority) - Order Cancelled Specialty Diagnoses / Procedures Referred By Doug hearn Referred To Contact Diagnoses Metastatic breast cancer Osteopenia of necks of both femurs Augustina Colin, PhD Referral ID Status Reason Start Date Expiration Date Visits Requested Visits Authorized [id number] Order Cancelled Specialty Services Required 12/02/2021 06/12/2022 3 3 Encounter Details Date Type Department Care Team (Latest Contact Info) Description 03/18/2022 8:41 EDT - 03/18/2022 23:59 EDT Hospital Encounter [facility] [address] [place], [place] [address] Osteopenia of necks of both femurs (Primary [...] Sign Reading Time Taken Comments Blood Pressure 126/60 03/18/2022 1110 EDT Pulse - - Temperature 36.2 ??C (97.2 ??F) 03/18/2022 1110 EDT Respiratory Rate 18 03/18/2022 1110 EDT Oxygen Saturation 99% 03/18/2022 1110 EDT Inhaled Oxygen Concentration - - Weight [...] Tablets by mouth as needed. 12/07/2023 mv-mn/C/glutamin/lysin /gbto159 (A[place], ASCORBATE SODIUM, ORAL) Take by mouth [...] Code Departure Means Destination Home or Self Correction documented in this encounter Progress Notes * Don Durham RN - 03/18/2022 1100 EDT Sunshine Pleitez arrived to [facility] for Zometa infusion related to diagnosis code of M85.851, M85.852, C50.919. Identification verified verbally and on patient wristband. Signs and symptoms of adverse infusion reaction reviewed with patient. PIV was placed by RN per protocol. Patient tolerated well. Premedications: n/a Main Medication and dose: Zometa 4mg 1119 Infusion started. 1147 Infusion completed. Patient tolerated without s/s of adverse reaction. IV access removed. Dry sterile dressing applied. Zometa was administered and titrated as per manufacturers directions and therapy protocol. Patient Education Topic: Zometa Method: Verbal Taught to: Patient Barriers: None Outcomes: verbalized understanding Signature:Don Durham RN Signs and symptoms of allergic infusion-related reaction reviewed. Advised patient to call 911 for difficulty breathing and to report any new symptoms to the ordering Provider. Patient verbalizes understanding. Discharged home in stable condition. documented in this encounter Plan of Treatment Upcoming Encounters Date Type Department Care Team (Late st Contact Info) Description 04/02/2024 10:30 EDT Appointment [facility] [address] [place] [phone] 04/02/2024 15:15 EDT Office Visit [facility] Surgical Oncology - [address] [phone] Adolfo Carreno MD [address] [place] [address] [address] [place] [phone] 04/05/2024 9:30 EDT Telemedicine [facility] [address] [place] [address] [phone] Chichi Woods MD [address] [place] [address] [phone] 04/11/2024 15:00 EDT Telemedicine [facility] Hematology & Oncology - [address] [address] Alisson Carreon MD [address] [place] [address] [phone] 04/13/2024 13:30 EDT Appointment [facility] Hematology & Oncology - [address] [id number] 04/13/2024 14:00 EDT Appointment [facility] Hematology & Oncology - [address] [phone] 04/16/2024 10:00 EST Telemedicine [facility] [address] [place] [address] [phone] Chichi Woods MD [address] [place] [phone] 04/24/2024 9:00 EST Appointment [facility] Radiology CT Outpatient - [address] [phone] 04/24/2024 11:00 EST Appointment [facility] Breast Imaging - [facility] [address] [place] [address] [place] [address] 04/27/2024 12:00 EST Appointment [facility] Hematology & Oncology - [address] [phone] 05/02/2024 15:00 EST Telemedicine [facility] Hematology & Oncology - [address] [phone] Alisson Carreon MD [address] [place] [address], Level [address] [place] [phone] 05/04/2024 10:15 EST Ancillary Procedure [facility] Card[facility] - [address] [place] [address] 05/04/2024 11:30 EST Appointment [facility] Hematology & Oncology - [address] [phone] 05/04/2024 12:00 EST Appointment [facility] Hematology & Oncology - [address] [phone] 06/12/2024 13:00 EST Appointment [facility] Radiology CT - [address] [phone] documented as of this encounter Visit Diagnoses Diagnosis Osteopenia of necks of both femurs- Primary documented in this encounter Administered Medications Inactive Administered Medications - up to 3 most recent administrations Medication Order MAR Action Action Date Dose Rate Site zoledronic acid (ZOMETA) 4 mg/100 mL IVPB 4 mg 4 mg, intravenous, Administer over 20 Minutes, NOW X1, 1 dose, On Michelle 03/18/22 at 0930, Routine New Bag 03/18/2022 11:19 EDT 4 mg documented in this encounter Orders Medications Ordered That Vj ht Not Have Been Administered Count Last Ordered Date First Ordered Date diphenhydrAMINE (BENADRYL) injection 50 mg 1 03/18/2022 EPINEPHrine (ADRENALIN) injection 0.3 mg 1 03/18/2022 methylPREDNISolone sod suc(P F) (SOLU-MEDROL) injection 40 mg 1 03/18/2022 sodium chloride 0.9 % (flush) flush 20 mL 1 03/18/2022 sodium chloride 0.9 % (NS) infusion 1 03/18 Nursing Count Last Ordered Date First Orde red Date INFORMED CONSENT 1 03/18/2022 documented in this encounter Care Teams Wireless Internet Installer Relationship Specialty Start Date End Date Linda Blnacas MD [facility] [address] [place] [address] PCP - General 01/06/11 Adolfo Carreno MD [address] [place] [phone] General Surgery 04/26/19 Augustina Colin MD PhD [address] [place] [phone] Medical Oncology 04/26/19 documented as of this encounter
--- OUTSIDE RECORDS SUMMARY | 2024-03-20 14:49 | XMS_ITS | Encounter Summary ---
Author Organization [facility] Address [address] [place] [address] Care Team Providers Care Nurse Companion Name Role Phone Linda Blancas MD Primary Care Provider [phone] Adolfo Carreno MD Unavailable [phone] Augustina Colin MD PhD Unavailable Unavailable Reason for Referral * Radiology Services (Routine/Next Available) - Authorization Not Required Specialty Diagnoses / Procedures Referred By Contac t Referred To Contact Nuclear Medicine Diagnoses Liver metastasis Procedures NM TUMOR LOCALIZATION WITH SPECT/CT Scriver, David Rowley MD [address] [phone] [facility] Referral ID Status Reason Start Date Expiration Date Visits Requested Visits Authorized [id number] Authorization Not Required 03/16/2022 1 1 * Radiology Services (Routine/Next Available) - Authorization Not Required Specialty Diagnoses / Procedures Referred By Contac t Referred To Contact Nuclear Medicine Diagnoses Liver metastasis Procedures NM LIVER WITH SPECT/CT ScriverDavid MD [address] [phone] [facility] Referral ID Status Reason Start Date Expiration Date Visits Requested Visits Authorized [id number] Authorization Not Required 03/16/2022 1 1 * Radiology Services (Routine/Next Available) - Specialty Report Received Specialty Diagnoses / Procedures Referred By Contac t Referred To Contact Diagnoses Liver metastasis Procedures IR EMBOLIZATION CO VASCULAR EMBOLIZE/OCCLUDE ORGAN TUMOR INFARCT David Moya MD [address] [place] [phone] [facility] Referral ID Status Reason Start Date Expiration Date V isits Requested Visits Authorized [id number] Specialty Report Received 03/16/2022 1 1 * Radiology Services (Routine/Next Available) - Specialty Report Received Specialty Diagnoses / Procedures Referred By Doug hearn Referred To Contact Diagnoses Liver metastasis Procedures IR EMBOLIZATION CO VASCULAR EMBOLIZE/OCCLUDE ORGAN TUMOR INFARCT David Moya MD [address] [place] [phone] [facility] Referral ID Status Reason Start Date Expiration Date V isits Requested Visits Authorized [id number] Specialty Report Received 03/16/2022 1 1 * Radiology Services (Routine/Next Available) - Closed Specialty Diagnoses / Procedures Referred By Doug t Referred To Contact Diagnoses Liver metastasis Procedures CT ANGIO ABDOMEN David Moya MD [address] [place] [phone] [facility] Referral ID Status Reason Start Date Expiration Date Visits Re quested Visits Authorized [id number] Closed 03/22/2022 09/18/2022 1 1 Reason for Visit * Reason Comments Advice Only Encounter Details Date Type Department Care Team (Late st Contact Info) Description 03/16/2022 8:30 EDT Telemedicine [facility] Interventional Radiology - [address] [address] David Moya MD [address] [place] [address], [place], [address] [place] [phone] Liver metastasis (HCC-CMS) (HCC) (HCC-CMS) (Primary Dx) [...] Progress Notes * David Moya MD - 03/16/2022 0830 EDT Subjective: Patient ID: Sunshine Subramanian is an 61 y.o. female. Chief Complaint Patient presents with ??? Advice Only Referring oncologist: Augustina Colin Type of visit: Televideo HPI 61-year-old female with metastatic breast cancer to the liver seen for consideration of liver directed therapy. Patient with a long history of breast cancer which has been metastatic to the mediastinum, cervical lymph nodes, lungs, liver, and bones. Most recently, the patient is on systemic therapywith capecitabine, however has been having significant [id number] symptoms related to this. The patient is seen for consideration of liver directed therapy in order to decrease the capecitabine dose or perhaps give a capecitabine holiday. For her osseous metastases, the patient is on zoledronic acid. Patient is fully functional, ECOG performance status of 1. MRI of the liver performed 02/25/2022 reveals innumerable tiny metastases throughout both lobes of the liver, however decrease in size and number from prior MRI. Bone scan 03/12/2022 reveals findings suspicious for progressive metastases, with new abnormal uptake in the left scapula and left ischial t uberosity, and increased uptake in the right ilium. Labs from 02/25/2022 are significant for creatinine 0.7, albumin 4.2, AST 39, ALT 51, total bilirubin 0.5, platelets 208, and CA 27-29 121. Patient Active Problem List Diagnosis ??? Papanicolaou [...] [place] no complications ??? BREAST SURGERY 08/2018 infrastructure technician placed right breast - [place] no complications ??? CARPAL TUNNEL RELEASE 200705/07/2019 beir block - no complications ??? FOOT SURGERY 05/2021 right big toe fused, right little toe screw ??? LIPOMA RESECTION 200005/07/2019 [place] no complications ??? MASTECTOMY Right ??? CO INSJ/RPLCMT BREAST IMPLANT Feb MASTECTOMY Bilateral 05/30/2019 Exchange right tissue infrastructure technician to silicone implant, exchange of left implant for matching performedby Tylor Boss MD at [facility] OR Family History Problem Relation Age of Onset ??? Cancer Father bladder ??? Stroke Mother ??? Cancer Brother 59 esophageal ??? Stroke Brother ??? Liver Disease Brother ??? Cancer Maternal Uncle bladder ??? Breast Cancer Paternal Aunt 35 ??? Cancer Paternal Aunt 35 breast Social Social History Tobacco Use ??? Smoking status: Never Smoker ??? Smokeless tobacco: Never Used Vaping Use ??? Vaping Use: Never used Substance Use Topics ??? Alcohol use: Not Currently Alcohol/week: 1.0 - 3.0 standard drink Types: 1 - 3 Glasses of wine per week ??? Drug use: No No outpatient medications have been marked as taking for the 03/16/22 encounter (Telemedicine) with David Moya MD. Allergies Allergen Reactions ??? Amoxicillin Other (See Comments) and Rash Red rash ??? Sulfa (Sulfonamide Antibiotics) Hives Light lavender rash ROS - See HPI Objective: There were no vitals taken for this visit. Physical Exam Not performed Assessment: 61-year-old female with breast cancer liver metastases, with limited extrahepatic disease. While the metastases in the liver are shrinking with systemic therapy, because of symptoms, the additional liver directed therapy may allow dose reduction, while still maintaining disease control. Clearly, any extrahepatic disease would not be affected by liver directed therapy, and so she may need to be maintained on some sort of systemic treatment. She is not a surgical candidate for liver resection. Transarterial radioembolization of her liver is medically necessary. I expect partial response or stable disease in her liver following radioembolization. Because of her extensive by lobar disease, I anticipate treating 1 lobe of her liver followed by a second treatment of the other lobe of her liver in 4 to 6 weeks. Prior to this, I will obtain a CT angiogram in order to evaluate the hepatic arterial anatomy to ensure it is conducive to transarterial therapy. Prior to each radioembolization treatment, a mapping angiogram will be performed in order to calculate her dose. As this is metastatic disease, SIR-Spheres will be used. I explained in detail the process of radioembolization, including the necessary mapping angiograms prior to treatment. I explained the risks of the procedure, including nontarget embolization and liver failure. The patient understands the risks and potential benefits and desires to proceed. Plan: Sunshine was seen today for advice only. Diagnoses and all orders for this visit: Liver metastasis (HCC-CMS) (HCC) - CT ANGIO ABDOMEN; Future - IR EMBOLIZATION; Future - IR EMBOLIZATION; Future - NM LIVER WITH SPECT/CT; Future - NM TUMOR LOCALIZATION WITH SPECT/CT; Future Schedule CT angiogram of the abdomen, followed by mapping and treatment Y 90 angiograms. I spent a total of 30 minutes in face to face time with this patient and 30 minutes of that time was spent in [...] Home Patient location state: Visit Location State: [place] The location of the provider: Office Provider location state: Visit Location State: [place] The following people and their roles were present for today's visit: Appointment Provider: David Moya MD Geoffrey Michael Scriver, MD documented in this encounter Plan of Treatment Upcoming Encounters Date Type Department Care Team (Late st Contact Info) Description 04/02/2024 10:30 EDT Appointment [facility] Interventional Radiology Unit [address] [place] [phone] 04/02/2024 15:15 EDT Office Visit [facility] Surgical Oncology - [address] [phone] Adolfo Carreno MD [address] [place] [address] [address] [place] [phone] 04/05/2024 9:30 EDT Telemedicine [facility] Palliative Care Services [address] [place] [address] Chichi Woods MD [address] [place] [phone] 04/11/2024 15:00 EDT Telemedicine [facility] Hematology & Oncology [address] [phone] Alisson Carreon MD [address] [place] [address] [address] [place] [phone] 04/13/2024 13:30 EDT Appointment [facility] Hematology & Oncology - [address] [address] 04/13/2024 14:00 EDT Appointment [facility] Hematology & Oncology [address] [address] 04/16/2024 10:00 EST Telemedicine [facility] - [facility] Palliative Care Services [address] [place] [address] [phone] Chichi Woods MD [address] [place] [address], [address] [phone] 04/24/2024 9:[address] [facility] Radiology CT Outpatient - [address] [id number] 04/24/2024 11:00 EST Appointment [facility] Breast Imaging - [facility] [address] [place] [address] [place], [place] [phone] 04/27/2024 12:00 EST Appointment [facility] Hematology & Oncology [address] [phone] 05/02/2024 15:00 EST Telemedicine [facility] Hematology & Oncology [address] [phone] Alisson Carreon MD [address] [place] [address], [address] [place] [phone] 05/04/2024 10:15 EST Ancillary Procedure [facility] Cardiology [place] [address] 05/04/2024 11:30 EST Appointment [facility] Hematology & Oncology [address] [phone] 05/04/2024 12:00 EST Appointment [facility] Hematology & Oncology - Main [address] [address] 06/12/2024 13:00 EST Appointment [facility] Radiology CT - [facility] [address] [place] [address] documented as of this encounter Results * [...] David Moya MD IMG NM ORDER ANUSHA * IR EMBOLIZATION (04/08/2022 11:05 EDT) Anatomical [...] The needle was exchanged for a 5 Chadian slender sheath. Anti-spasmodic solution of 2.5 mg of verapamil, 3000 units of heparin, and 200 mcg of nitroglycerin was admixed with blood and administered via the sheath side-port over the course of one minute. A 1.5J Glidewire was preloaded into a ideaTree - innovate | mentor | invest radial catheter and the system was advanced [...] ultrasound. The needle wasexchanged for a 5 Chadian slender sheath. Anti-spasmodic solution of 2.5 mgof [...] David Moya MD IMG IR ORDER ANUSHA * NM LIVER WITH SPECT/CT (04/07/2022 12:05 [...] andagree with the findings. David Moya MD [facility] NM ORDER ANUSHA * IR EMBOLIZATION (04/07/2022 10:18 EDT) Anatomical [...] and 200 mcg of nitroglycerin. Access: 5 Chadian slender sheath left radial access Hemostasis: TR [...] The needle was exchanged for a 5 Chadian slender sheath. Anti-spasmodic solution of 2.5 mg of verapamil, 3000 units of heparin, and 200 mcg of nitroglycerin was admixed with blood and administered via the sheath side-port over the course of one minute. A 1.5J Glidewire was preloaded into a Kaylah radial catheter and the system was advanced [...] contrast was noted about the gallbladder wall. [id number] was administered from this level for subsequent [...] and 200 mcg of nitroglycerin. Access: 5 Chadian slender sheath left radial access Hemostasis: TR [...] ultrasound. The needle wasexchanged for a 5 Chadian slender sheath. Anti-spasmodic solution of 2.5 mgof verapamil, 3000 units of heparin, and 200 mcg of nitroglycerin wasadmixed with blood and administered via the sheath side-port over thecourse of one minute. A 1.5J Glidewire was preloaded into a ideaTree - innovate | mentor | invest radialcatheter and the system was advanced through [...] Some contrast wasnoted about the gallbladder wall. [id number] was administered from thislevel for subsequent scintigraphic [...] David Moya MD IMG IR ORDER ANUSHA * CT ANGIO ABDOMEN (03/31/2022 16:59 EDT) Anatomical Region Laterality Modality Body, Abdomen Computed Tomogra phy 04/02/2022 8:25 EDT Impressions 04/02/2022 8:25 EDT 1. ??Hepatic arterial anatomy as described above. 2. ??Scattered hypodense hepatic lesions correspond with metastatic lesions as seen on MR. 3. ??Osseous metastatic lesions, unchanged. I have personally reviewed the images and the above interpretation and agree with the findings. Narrative 04/02/2022 8:[address] ANGIO ABDOMEN 03/31/2022 5:00 PM SIGNS AND SYMPTOMS/COMMENTS: Evaluate hepatic arterial anatomy. Arterial and venous phase imaging only. TECHNIQUE: Prior to the intravenous injection of contrast media, precontrast CT scans were obtained throughout the abdomen. Then, utilizing a multislice CT scanner, and following an intravenous bolus injection of nonionic contrast media, arterial and venous phase CT angiography of the abdomen was performed. Scanning was performed from the lower lungs to the lesser trochanters. 3-D reconstructions were performed utilizing the coronal and sagittal MPR, radial CPR, and volume rendering algorithms on an independent work station. COMPARISON: MR abdomen 02/25/2022, CT abdomen/pelvis 01/18/2020 ANGIOGRAPHIC FINDINGS: No abdominal aortic aneurysm or dissection. The celiac trunk, SMA, AMANDA and renal arteries are widely patent. The proper hepatic artery bifurcates into a left and right hepatic artery. The cystic artery projects inferiorly from the distal right hepatic artery (coronal image 68). 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 There is irregularity to both renal arteries, left greater than right which may represent fibromuscular dysplasia. The major systemic and portal venous drainage pathways are patent. NON-ANGIOGRAPHIC FINDINGS: Lower chest: Visualized lung bases and mediastinum are normal. No pleural effusion. Bilateral breast implants partially visualized. Hepatobiliary: Scattered hypodense hepatic lesions correspond with metastatic lesions as seen on MR. The liver is otherwise normal in size and shape. No biliary ductal dilatation is present. The gallbladder is unremarkable with no evidence of radiopaque gallstones, gallbladder wall thickening, or obvious pericholecystic inflammatory changes. Pancreas: Normal; no mass or surrounding fluid. ?? Spleen: Normal size. No focal lesion. ?? Adrenal Glands: Normal; no mass. Kidneys and ureters: Small subcentimeter right renal cysts, corresponding with prior MR imaging. The kidneys are otherwise normal in size, shape, and attenuation. No hydronephrosis, hydroureter, or calculi seen. No perinephric stranding. Bowel: No evidence of obstruction or acute inflammation. Peritoneal cavity / Subperitoneal space: No significant free air or free fluid identified. Lymphatic: No pathologically enlarged node. Abdominal wall: No bowel containing hernia. Musculoskeletal: No acute abnormality. Left T11 pedicle sclerotic lesion and partially visualized right iliac crest lesion, as before. Posteriorly lumbosacral spinal fusion hardware is intact. Degenerative disc disease at L1-L2, similar to 2020. Enterprise Cloud Architect: No additional findings. Procedure Note Scriver, Daivd Rowley MD - 04/02/2022 CT ANGIO ABDOMEN 03/31/2022 5:00 PM SIGNS AND SYMPTOMS/COMMENTS: Evaluate hepatic arterial anatomy. Arterial and venous phase imagingonly. TECHNIQUE: Prior to the intravenous injection of contrast media, precontrast CT scanswere obtained throughout the abdomen. Then, utilizing a multislice CTscanner, and following an intravenous bolus injection of nonionic contrastmedia, arterial and venous phase CT angiography of the abdomen wasperformed. Scanning was performed from the lower lungs to the lessertrochanters. 3-D reconstructions were performed utilizing the coronal andsagittal MPR, radial CPR, and volume rendering algorithms on anindependent work station. COMPARISON: MR abdomen 02/25/2022, CT abdomen/pelvis 01/18/2020 ANGIOGRAPHIC FINDINGS: No abdominal aortic aneurysm or dissection. The celiac trunk, SMA, AMANDA andrenal arteries are widely patent. The proper hepatic artery bifurcatesinto a left and right hepatic artery. The cystic artery projectsinferiorly from the distal right hepatic artery (coronal image 68). Thereis a 4 mm saccular distal right renal artery aneurysm (coronal image 98),similar to 2020. There is irregularity to both renal arteries, leftgreater than right which may represent fibromuscular dysplasia. The major systemic and portal venous drainage pathways are patent. NON-ANGIOGRAPHIC FINDINGS: Lower chest: Visualized lung bases and mediastinum are normal. No pleuraleffusion. Bilateral breast implants partially visualized. Hepatobiliary: Scattered hypodense hepatic lesions correspond withmetastatic lesions as seen on MR. The liver is otherwise normal in sizeand shape. No biliary ductal dilatation is present. The gallbladder isunremarkable with no evidence of radiopaque gallstones, gallbladder wallthickening, or obvious pericholecystic inflammatory changes. Pancreas: Normal; no mass or surrounding fluid. Spleen: Normal size. No focal lesion. Adrenal Glands: Normal; no mass. Kidneys and ureters: Small subcentimeter right renal cysts, correspondingwith prior MR imaging. The kidneys are otherwise normal in size, shape,and attenuation. No hydronephrosis, hydroureter, or calculi seen. Noperinephric stranding. Bowel: No evidence of obstruction or acute inflammation. Peritoneal cavity / Subperitoneal space: No significant free air or freefluid identified. Lymphatic: No pathologically enlarged node. Abdominal wall: No bowel containing hernia. Musculoskeletal: No acute abnormality. Left T11 pedicle sclerotic lesionand partially visualized right iliac crest lesion, as before. Posteriorlylumbosacral spinal fusion hardware is intact. Degenerative disc disease atL1-L2, similar to 2020. Enterprise [employer] Architect: No additional findings. IMPRESSION 1. Hepatic arterial anatomy as described above. 2. Scattered hypodense hepatic lesions correspond with metastatic lesionsas seen on MR. 3. Osseous metastatic lesions, unchanged. I have personally reviewed the images and the above interpretation andagree with the findings. David Moya MD IMG CT ORDER ANUSHA documented in this encounter Visit Diagnoses Diagnosis Liver metastasis- Primary Secondary malignant neoplasm of liver Liver metastasis Secondary malignant neoplasm of liver Liver metastasis Secondary malignant neoplasm of liver Liver metastasis Secondary malignant neoplasm of liver Liver metastasis Secondary malignant neoplasm of liver Liver metastasis Secondary malignant neoplasm of liver documented in this encounter Care Teams Nurse Companion Relationship Specialty Start Date End Date Linda Blancas MD [facility] [address] [place] [address] PCP - General 01/06/11 Adolfo Carreno MD [address] [place] [phone] General Surgery 04/26/19 Augustina Colin MD PhD [address] [place] [phone] Medical Oncology 04/26/19 documented as of this encounter"
--- OUTSIDE RECORDS SUMMARY | 2024-03-20 14:49 | XMS_ITS | Encounter Summary ---
Author Organization [facility] Address [address] [place] [address] Care Team Providers Care Dancing Master Name Role Phone Linda Blancas MD Primary Care Provider [phone] Adolfo Carreno MD Unavailable [phone] Augustina Colin MD PhD Unavailable Unavailable Reason for Visit * Reason Comments Follow-up Encounter Details Date Type Department Care Team (Late st Contact Info) Description 04/05/2022 16:15 EDT Office Visit [facility] Surgical Oncology - [address] [address] Adolfo Carreno MD [address] [place] [address], [facility] 2 [place] [address] Routine cancer follow-up visit (Primary [...] Progress Notes * Adolfo Carreno MD - 04/05/2022 1615 EDT Sunshine Costa is a 61-year-old woman seen in follow-up. Patient had a right total mastectomywith implant reconstruction in the early for ductal carcinoma in situ. Unfortunately patienthad positive margin did not undergo reexcision and developed a recurrence of disease in the mastectomy site. This also developed distant metastatic disease. She had a excision of that area with a repeat reconstruction. She has been undergoing treatment with primarily endocrine therapy since then. She is developed disease in the lymph nodes in the neck as well as in the liver and in the bone. She also has lung metastases as well. Patient is getting ready to have an ablation procedure on a couplelesions in her liver. Currently she is on Faslodex and palbociclib she was on Xeloda which she is recently stopped because of issues with her hands. On exam the patient is in no acute distress, there is no scleral icterus. Neck exam reveals no palpable cervical or supraclavicular lymph nodes. There is no nodules in the thyroid, no carotid bruits or JVD were noted. Lungs are clear to auscultation, heart has a regular rate and rhythm without S3-S4 murmurs. Breast exam reveals a right mastectomy with implant reconstruction. The left has an implant but no skin changes otherwise noted. Palpation of the right mastectomy site reveals no palpable abnormalities, there is no palpable lymph nodes in the axilla. Left breast had no palpable abnormalities, there is no palpable lymph nodes in the axilla. There is no palpable abdominal masses, no hepato splenomegaly was noted. There is good range of motion the upper extremities without edema. Ultrasound of the right mastectomy site shows no evidence of recurrent disease. The implant was a good position without abnormality. There were no abnormal lymph nodes in the internal mammary or in the axillary region. The left breast has no architectural changes, no solid or cystic abnormalities were seen. The implant was a good position there is no abnormal lymph nodes in the internal mammary or axial region on the left. Ultrasound of the neck demonstrates some small lymph nodes in the left neck largest of which measured 8 mm in size these are likely areas that had disease previously as well. These are fairly stable. Impression: Patient with stage IV breast cancer which currently is undergoing treatment with Faslodex and palbociclib cleared she is undergoing a liver ablation in the near future. No evidence of progression of disease is seen in the local regional areas. We will plan follow-up therefore with myself in 1 year. documented in this encounter Plan of Treatment Upcoming Encounters Date Type Department Care Team (Late st Contact Info) Description 04/02/2024 10:30 EDT Appointment [facility] Interventional Radiology Unit [address] [place] [address] 04/02/2024 15:15 EDT Office Visit [facility] Surgical Oncology - [address] 918351 Adolfo Carreno MD 111 [facility], Level 2 [place] [phone] 04/05/2024 9:30 EDT Telemedicine [facility] - [facility] [address], [place] [phone] Chichi Woods MD 111 [facility], [address] [phone] 04/11/2024 15:00 EDT Telemedicine [facility] Hematology & Oncology - [facility] [address], [place] 0[address] Alisson Carreon MD [address] [place] [address], [facility] 2 [place] [phone] 04/13/2024 13:30 EDT Appointment [facility] Hematology & Oncology - [address] [phone] 04/13/2024 14:00 EDT Appointment [facility] Hematology & Oncology - [address] [id number] 04/16/2024 10:00 EST Telemedicine [facility] - [facility] [address] [place] [address] [phone] Chichi Woods MD [address] [place] [address], [address] [phone] 04/24/2024 9:00 EST Appointment [facility] Radiology CT Outpatient - [address] 232641 04/24/2024 11:00 EST Appointment [facility] Breast Imaging - [facility] S [address] 155921 04/27/2024 12:00 EST Appointment [facility] Hematology & Oncology - [address] 670671 05/02/2024 15:00 EST Telemedicine [facility] Hematology & Oncology - [address] 005681 Alisson Carreon MD [address] [place] [address], [facility] 2 [place] [phone] 05/04/2024 10:15 EST Ancillary Procedure [facility] Cardiology - [address] [employer], [place] [phone] 05/04/2024 11:30 EST Appointment [facility] Hematology & Oncology [address] [address] 05/04/2024 12:00 EST Appointment [facility] Hematology & Oncology [address] [address] 06/12/2024 13:00 EST Appointment [facility] Radiology CT - [address] [address] documented as of this encounter Procedures Procedure Name Priority Date/Time Associated Diagnosis Comments ORDERS - SCANNED 04/07/2022 11:04 EDT documented in this encounter Results * ORDERS - SCANNED (04/07/2022 11:04 EDT) 04/07/2022 11:0 4 EDT Scan 2 Ordnance Keeper ADMISSION ORDERABLE S documented in this encounter Visit Diagnoses Diagnosis Routine cancer follow-up visit- Primary Other follow-up examination Personal history of breast cancer Personal history of malignant neoplasm of breast documented in this encounter Care Teams Dancing Master Relationship Specialty Start Date End Date Linda Blancas MD [address] [place] [address] 30 [place] [address] PCP - General 01/06/11 Adolfo Carreno MD [address] [place] [address] 2 [place] [phone] General Surgery 04/26/19 Augustina Colin MD PhD [address] [place] [address] 2 [place] [address] Medical Oncology 04/26/19 documented as of this encounter
--- OUTSIDE RECORDS SUMMARY | 2024-03-20 14:49 | XMS_ITS | Encounter Summary ---
Author Organization [facility] Address [address] [place] [address] Care Team Providers Care Internist Medical Doctor Md Name Role Phone Linda Blancas MD Primary Care Provider [phone] Adolfo Carreno MD Unavailable [phone] Augustina Colin MD PhD Unavailable Unavailable Reason for Referral * Consult (See Order Priority) - Authorized Specialty Diagnoses / Procedures [facility] Referred To Contact Pharmacy Diagnoses Metastatic breast cancer Augustina Colin MD PhD [facility] [address] [place] [address] Referral ID Status Reason Start Date Expiration Date Visits Requested Visits Authorized [id number] Authorized Specialty Services Required 2 1 1 Question Answer PA Type: New Medication to be Prior Authorized: capecitabine 1000mg BID-dose reduction from 1500 mg [facility] Precertification Request for Medications URGENT: No Medication Administration: PO, Home Ordering MD: Dixie Nurse: Garima Phone: [phone] Is this a dosage change, renewal or a new medication? Dose Change Medication Start Date & Number of Cycles: 03/26/22 PT BSA: There is no height or weight on file to calculate BSA. What is the reason for taking this medication? Breast cancer Is this an on label usage of this medication? yes What is the patient's current drug regimen? Capecitabine 1500 mg bid Please Prior Auth Medications Listed below: Capcitabine 1000mg BID Encounter Details Date Type Department Care Team (Late st Contact Info) Description 03/22/2022 Orders Only [facility] Hematology & Oncology - Main [place] [address] [place] [address] Garima Boyce RN Metastatic breast cancer (HCC-CMS) [...] Progress Notes * Garima Boyce, RN - 03/22/2022 1703 EDT TANK placed for capecitabine 1000 mg BID. Garima we will be wanting to start Cape 1000mg BID on the documented in this encounter Plan of Treatment Upcoming Encounters Date Type Department Care Team (Late st Contact Info) Description 04/02/2024 10:[address] [facility] Interventional Radiology Unit [address] [place], [place] [phone] 04/02/2024 15:[address] [facility] Surgical Oncology - [address] 032971 Adolfo Carreno MD [address] [place] [address] [phone] 04/05/2024 9:30 EDT Telemedicine [facility] Palliative Care Services [address] [place] [address] Chichi Woods MD [address] [place] [phone] 04/11/2024 15:00 EDT Telemedicine [facility] Hematology & Oncology - [address] [address] Alisson Carreon MD [address] [place] [address] [phone] 04/13/2024 13:30 EDT Appointment [facility] Hematology & Oncology [address] 479781 04/13/2024 14:00 EDT Appointment [facility] Hematology & Oncology - [address] [address] 04/16/2024 10:00 EST Telemedicine [facility] Palliative Care Services [address] [place] [address] 519571 Chichi Woods MD [address] [place] [address] [phone] 04/24/2024 9:00 EST Appointment [facility] Radiology CT Outpatient - [address] 050241 04/24/2024 11:[address] [facility] Breast Imaging - [facility] S [place] [address] [place], [place] 623711 04/27/2024 12:00 EST Appointment [facility] Hematology & Oncology [address] [address] 05/02/2024 15:00 EST Telemedicine [facility] Hematology & Oncology [address] 549171 Alisson Carreon MD [address] [place] [address], Level 2 [place] [phone] 05/04/2024 10:[address] [facility] Cardiology - [address] [place], [place] [phone] 05/04/2024 11:30 EST Appointment [facility] Hematology & Oncology [address] [id number] 05/04/2024 12:00 EST Appointment [facility] Hematology & Oncology [address] 470341 06/12/2024 13:00 EST Appointment [facility] Radiology CT - [address] [phone] Scheduled Referrals Name Type Priority Associated Diagnoses Order Schedule AMB CONS/FOLLOW UP SPECIALTY PHARMACY MEDICATION PRIOR AUTHORIZATION REQUEST Outpatient Referral Urgent Primary malignant neoplasm of breast with metastasis (HCC-CMS) Expected: 03/24/2022 (Approximate), Expires: 03/22/2023 documented as of this encounter Visit Diagnoses Diagnosis Metastatic breast cancer- Primary documented in this encounter Care Teams Internist Medical Doctor Md Relationship Specialty Start Date End Date Linda Blancas MD [facility] [address] [place] [address] PCP - General 01/06/11 Adolfo Carreno MD [address] [place] [address] 2 [place] [address] General Surgery 04/26/19 Augustina Colin MD PhD [address] [place] [phone] Medical Oncology 04/26/19 documented as of this encounter
--- OUTSIDE RECORDS SUMMARY | 2024-03-20 14:49 | XMS_ITS | Encounter Summary ---
Author Organization [facility] Address [address] [place] [address] Care Team Providers Care Wood Turner Name Role Phone Linda Blancas MD Primary Care Provider [phone] Adolfo Carreno MD Unavailable [phone] Augustina Colin MD PhD Unavailable Unavailable Encounter Details Date Type Department Care Team (Late st Contact Info) Description 04/05/2022 16:15 EDT Ancillary Procedure [facility] Surgical Oncology - Main [place] [address] [place], [place] [address]131 Social History Tobacco Use Types Packs/Day Years [...] EDT Appointment [facility] Inter[facility] Unit [address] [place] [address] [phone] 04/02/2024 15:15 EDT [facility] - [address] 648931 Adolfo Carreno MD [address] [place] [phone] 04/05/2024 9:30 EDT Telemedicine [facility] [address] [place] [address] 944261 Chichi Woods MD [address] [place] [phone] 04/11/2024 15:00 EDT Telemedicine [facility] Hematology & Oncology [address] 342981 Alisson Carreon MD [address] [place] [phone] 04/13/2024 13:30 EDT Appointment [facility] Hematology Oncology [address] [phone] 04/13/2024 14:00 EDT Appointment [facility] Hematology & Oncology [address] 064351 04/16/2024 10:00 EST Telemedicine [facility] [address] [place] [address] 538391 Chichi Woods MD [address] [place] [address], [address] [place] [phone] 04/24/2024 9:00 EST Appointment [facility] Radiology CT Outpatient - [address] [id number] 04/24/2024 11:00 EST Appointment [facility] Breast Imaging - [facility] S [place] 1 [place], [place] 386741 04/27/2024 12:00 EST Appointment [facility] Hematology & Oncology - [address] [id number] 05/02/2024 15:00 EST Telemedicine [facility] Hematology & Oncology - [address] 850791 Alisson Carreon MD [address] [place] [address], Level [address] [place] [phone] 05/04/2024 10:15 EST Ancillary Procedure [facility] [place] [place] [address] 05/04/2024 11:30 EST Appointment [facility] Hematology & Oncology - [address] [phone] 05/04/2024 12:00 EST Appointment [facility] Hematology & Oncology [address] [phone] 06/12/2024 13:00 EST Appointment [facility] Radiology CT - [address] [phone] documented as of this encounter Procedures Procedure Name Priority Date/Time Associated Diagnosis Comments [facility] US BREAST - BREAST CARE CENTER ONLY Routine 04/05/2022 16:42 EDT documented in this encounter Results * [facility] BREAST - BREAST CARE CENTER ONLY (04/05/2022 16:42 EDT) Narrative [facility] POINT OF CARE - 04/05/2022 16:42 EDT This is a non-reportable exam. Adolfo Carreno MD IMG US POC ORDERABLE S [facility] POINT OF CARE documented in this encounter Visit Diagnoses Not on filedocumented in this encounter Care Teams Wood Turner Relationship Specialty Start Date End Date Linda Blancas MD [facility] [address] [place], [place] 192382 PCP - General 01/06/11 Adolfo Carreno MD [address] [place] [address] 2 [place] [address] General Surgery 04/26/19 Augustina Colin MD PhD [address] [place] [address] 2 [place] [phone] Medical Oncology 04/26/19 documented as of this encounter
--- OUTSIDE RECORDS SUMMARY | 2024-03-20 14:49 | XMS_ITS | Encounter Summary ---
Author Organization [facility] Address [address] [place] [address] Care Team Providers Care Dog Trainer Name Role Phone Linda Blancas MD Primary Care Provider [phone] Adolfo Carreno MD Unavailable [phone] Augustina Colin MD PhD Unavailable Unavailable Encounter Details Date Type Department Care Team (Late st Contact Info) Description 03/26/2022 Orders Only [facility] H[facility] Oncology - [facility] [address] [place] [address] Garima Boyce, SHELLEY Social History Tobacco Use [...] [facility] [address] [place] [address] 04/02/2024 15:15 EDT Office Visit [facility] Surgical Oncology - [address] 524161 Adolfo Carreno MD [address] [place] [address] [phone] 04/05/2024 9:30 EDT Telemedicine [facility] - [facility] Palliative Care Services [address] [place] [address] 379461 Chichi Woods MD [address] [place] [address] [phone] 04/11/2024 15:00 EDT Telemedicine [facility] Hematology & Oncology [address] 721661 Alisson Carreon MD [address] [place] [address] [phone] 04/13/2024 13:30 EDT Appointment [facility] Hematology & Oncology [address] 078081 04/13/2024 14:00 EDT Appointment [facility] Hematology & Oncology [address] 951711 04/16/2024 10:00 EST Telemedicine [facility] - [facility] Palliative Care Services [address] [place], [place] 985171 Chichi Woods MD 111 [facility], [place] [address] [place] [phone] 04/24/2024 9:00 EST Appointment [facility] Radiology CT Outpatient - [address] [id number] 04/24/2024 11:00 EST Appointment [facility] Breast Imaging - [facility] [address] [place], [place] 140601 04/27/2024 12:00 EST Appointment [facility] Hematology & Oncology - [address] [phone] 05/02/2024 15:00 EST Telemedicine [facility] Hematology & Oncology - [address] 201721 Alisson Carreon MD [address] [place] [address], Level [address] [place] [phone] 05/04/2024 10:15 EST Ancillary Procedure [facility] Cardiology - [address] [place], [place] [phone] 05/04/2024 11:30 EST Appointment [facility] Hematology & Oncology - [address] 000721 05/04/2024 12:00 EST Appointment [facility] Hematology & Oncology [address] [phone] 06/12/2024 13:00 EST Appointment [facility] Radiology CT - [address] [phone] documented as of this encounter Visit Diagnoses Not on filedocumented in this encounter Orders Medications Ordered That Vj ht Not Have Been Administered Count Last Ordered Date First Ordered Date capecitabine (XELODA) tablet 1,000 mg 1 documented in this encounter Additional Health Concerns Infection Onset Date Last Indicated Resolved Time R/O COVID-19 12/12/2023 12/12/2023 12/12/2023 15:3 5 EDT R/O COVID-19 01/08/2024 01/08/2024 01/08/2024 18:2 6 EDT R/O COVID-19 01/16/2024 01/16/2024 01/16/2024 17:5 0 EDT documented as of this encounter Care Teams Dog Trainer Relationship Specialty Start Date End Date Linda Blancas MD [address] [place] [address] PCP - General 01/06/11 Adolfo Carreno MD [address] [place] [phone] General Surgery 04/26/19 Augustina Colin MD PhD [address] [place] [address] 2 [place] [phone] Medical Oncology 04/26/19 documented as of this encounter
--- OUTSIDE RECORDS SUMMARY | 2024-03-20 14:49 | XMS_ITS | Encounter Summary ---
Author Organization [facility] Address [address] [place] [address] Care Team Providers Care Pattern Grader Supervisor Name Role Phone Linda Blancas MD Primary Care Provider [phone] Adolfo Carreno MD Unavailable [phone] Augustina Colin MD PhD Unavailable Unavailable Reason for Visit * Reason Onset Date Comments Appointment Related 03/08/2022 Encounter Details Date Type Department Care Team (Late st Contact Info) Description 03/08/2022 Telephone [facility] Interventional Radiology - [address] [phone] David Moya MD 111 [facility], Level 1 [place] [address] Appointment Related Social History Tobacco [...] encounter Miscellaneous Notes * Telephone Encounter - GalindoNick garyy - 03/08/2022 1504 EDT Called and spoke with Ms. Pleitez in regards to their referral to [facility] Interventional Radiology for consideration of y90 I have scheduled them for a consultation with Dr. Moya on Friday 03/16 at 8:30am This visit will take place via zoom I will inform the ordering office of this scheduled date and time. Ms. Pleitez verbalized understanding and agrees with Plan of Care. No cognitive barriers were identified during this conversation. She has our contact number to call with questions. Susanne Cedeno documented in this encounter Plan of Treatment Upcoming Encounters Date Type Department Care Team (Late st Contact Info) Description 04/02/2024 10:30 EDT Appointment [facility] Interventional Radiology Unit [address] [place], [place] 757611 04/02/2024 15:15 EDT Office Visit [facility] Surgical Oncology - [facility] [address] [place], [place] 352371 Adolfo Carreno MD 111 [facility], [facility], Level [address] [place] [phone] 04/05/2024 9:30 EDT Telemedicine [facility] - [facility] Palliative Care Services [address] [place], [place] 684051 Chichi Woods MD [address] [place] [address] 262 [place] [phone] 04/11/2024 15:00 EDT Telemedicine [facility] Hematology & Oncology - [address] [phone] Alisson Carreon MD [address] [place] [address], Level [address] [place] [phone] 04/13/2024 13:30 EDT Appointment [facility] Hematology & Oncology [address] 675291 04/13/2024 14:00 EDT Appointment [facility] Hematology & Oncology [address] 005891 04/16/2024 10:00 EST Telemedicine [facility] - [facility] Palliative Care Services [address] [place] [address] Chichi Woods MD [address] [place] [address] [phone] 04/24/2024 9:00 EST Appointment [facility] Radiology CT Outpatient - [address] 727751 04/24/2024 11:00 EST Appointment [facility] Breast Imaging - [address] [id number] 04/27/2024 12:00 EST Appointment [facility] Hematology & Oncology - [address] [phone] 05/02/2024 15:00 EST Telemedicine [facility] Hematology & Oncology - [address] [phone] Alisson Carreon MD [address] [place] [address] [phone] 05/04/2024 10:15 EST Ancillary Procedure [facility] Cardiology - [address] [place] [address] 05/04/2024 11:30 EST Appointment [facility] Hematology & Oncology - [address] 469101 05/04/2024 12:00 EST Appointment [facility] Hematology & Oncology [address] 015451 06/12/2024 13:00 EST Appointment [facility] Radiology CT - [address] [id number] documented as of this encounter Visit Diagnoses Not on filedocumented in this encounter Care Teams Pattern Grader Supervisor Relationship Specialty Start Date End Date Linda Blancas MD [facility] [address] [place] [address] PCP - General 01/06/11 Adolfo Carreno MD [address] [place] [address] [phone] General Surgery 04/26/19 Augustina Colin MD PhD [address] [place] [phone] Medical Oncology 04/26/19 documented as of this encounter
--- OUTSIDE RECORDS SUMMARY | 2024-03-20 14:49 | XMS_ITS | Encounter Summary ---
Author Organization [facility] Address [address] [place] [address] Care Team Providers Care Geophysical Laboratory Director Name Role Phone Linda Blancas MD Primary Care Provider [phone] Adolfo Carreno MD Unavailable Augustina Colin MD PhD Unavailable Unavailable Encounter Details Date Type Department Care Team (Late st Contact Info) Description 03/15/2022 Orders Only [facility] H[facility] & Oncology - [facility] [address] [place] [address] Augustina Colin, PhD Social History Tobacco Use [...] EDT Appointment [facility] Interventional Radiology Unit [address] [place] [address] [phone] 04/02/2024 15:15 EDT Office Visit [facility] Surgical Oncology - [address] [phone] Adolfo Carreno MD [address] [place] [address] [phone] 04/05/2024 9:30 EDT Telemedicine [facility] - [facility] Palliative Care Services [address] [place] [address] 693001 Chichi Woods MD [address] [place] [address] [phone] 04/11/2024 15:00 EDT Telemedicine [facility] Hematology & Oncology [address] 127541 Alisson Carreon MD [address] [place] [address] [phone] 04/13/2024 13:30 EDT Appointment [facility] Hematology & Oncology [address] [phone] 04/13/2024 14:00 EDT Appointment [facility] Hematology & Oncology [address] [phone] 04/16/2024 10:00 EST Telemedicine [facility] - [facility] Palliative [facility] Services [address] [place] [address] [phone] Chichi Woods MD [address] [place] [address], [address] [place] [phone] 04/24/2024 9:00 EST Appointment [facility] Radiology CT Outpatient - [address] 855441 04/24/2024 11:00 EST Appointment [facility] Breast Imaging - [facility] [place] [address] [place], [place] 841881 04/27/2024 12:00 EST Appointment [facility] Hematology & Oncology - [address] [phone] 05/02/2024 15:00 EST Telemedicine [facility] Hematology & Oncology - [address] [address] Alisson Carreon MD [address] [place] [address], [facility], Level [address] [place] [phone] 05/04/2024 10:15 EST Ancillary Procedure [facility] Cardiology - [address] [place], [place] [phone] 05/04/2024 11:30 EST Appointment [facility] Hematology & Oncology - [address] [phone] 05/04/2024 12:00 EST Appointment [facility] Hematology & Oncology - [address] [phone] 06/12/2024 13:00 EST Appointment [facility] Radiology CT - [address] [phone] documented as of this encounter Visit Diagnoses Not on filedocumented in this encounter Additional Health Concerns Infection Onset Date Last Indicated Resolved Time R/O COVID-19 12/12/2023 12/12/2023 12/12/2023 15:3 5 EDT R/O COVID-19 01/08/2024 01/08/2024 01/08/2024 18:2 6 EDT R/O COVID-19 01/16/2024 01/16/2024 01/16/2024 17:5 0 EDT documented as of this encounter Care Teams Geophysical Laboratory Director Relationship Specialty Start Date End Date Linda Blancas MD [facility] [address] [place] [address] PCP - General 01/06/11 Adolfo Carreno MD [address] [place] [address] 2 [place] [phone] General Surgery 04/26/19 Augustina Colin MD PhD [address] [place] [address], [facility] [address] [place] [phone] Medical Oncology 04/26/19 documented as of this encounter
--- OUTSIDE RECORDS SUMMARY | 2024-03-20 14:49 | XMS_ITS | Encounter Summary ---
Author Organization [facility] Address [address] [place] [address] Care Team Providers Care Software Performance Engineer Name Role Phone Linda Blancas MD Primary Care Provider [phone] Adolfo Carreno MD Unavailable [phone] Augustina Colin MD PhD Unavailable Unavailable Reason for Referral * Radiology Services (Routine/Next Available) - Authorization Not Required Specialty Diagnoses / Procedures Referred By Contac t Referred To Contact Nuclear Medicine Diagnoses Metastatic breast cancer Procedures NM BONE WHOLE BODY Augustina Colin MD PhD [facility] Referral ID Status Reason Start Date Expiration Date Visits Requested Visits Authorized [id number] Authorization Not Required 02/26/2022 1 1 Reason for Visit * Radiology Services (Routine/Next Available) - Authorization Not Required Specialty Diagnoses / Procedures Referred By Contac t Referred To Contact Nuclear Medicine Diagnoses Metastatic breast cancer Procedures NM BONE WHOLE BODY Augustina Colin MD PhD [facility] Referral ID Status Reason Start Date Expiration Date Visits Requested Visits Authorized [id number] Authorization Not Required 02/26/2022 1 1 Encounter Details Date Type Department Care Team (Latest Contact Info) Description 03/12/2022 11:59 EDT - 03/12/2022 23:[address] [facility] Radiology Nuclear Medicine and PET - [address] [phone] Metastatic breast cancer (HCC-CMS) (HCC) (HCC-CMS) Discharge [...] Tablets by mouth as needed. 12/07/2023 mv-mn/C/glutamin/lysin /mwhy153 (AIRBORNE, ASCORBATE SODIUM, ORAL) Take by mouth [...] [facility] [address] [place] [address] [phone] 04/02/2024 15:15 EDT Office Visit [facility] Surgical Oncology - [address] [phone] Adolfo Carreno MD [address] [place] [address] [phone] 04/05/2024 9:30 EDT Telemedicine [facility] - [facility] Palliative Care Services [address] [place] [address] [phone] Chichi Woods MD [address] [place] [address] [phone] 04/11/2024 15:00 EDT Telemedicine [facility] Hematology & Oncology - [address] [phone] Alisson Carreon MD [address] [place] [address] 2 [place] [phone] 04/13/2024 13:30 EDT Appointment [facility] Hematology & Oncology - [address] [address] 04/13/2024 14:00 EDT Appointment [facility] Hematology & Oncology - [address] [address] 04/16/2024 10:00 EST Telemedicine [facility] - [facility] Palliative Care Services [address] [place] [address] [phone] Chichi Woods MD [address] [place] [address] [phone] 04/24/2024 9:00 EST Appointment [facility] Radiology CT Outpatient - [address] [address] 04/24/2024 11:00 EST Appointment [facility] Breast Imaging - [facility] [address] [place] [address] [place], [place] 125041 04/27/2024 12:00 EST Appointment [facility] Hematology & Oncology [address] [phone] 05/02/2024 15:00 EST Telemedicine [facility] Hematology & Oncology - [address] [address] Alisson Carreon MD [address] [place], [place] [address]ili, Level [address] [place] [phone] 05/04/2024 10:15 EST Ancillary Procedure [facility] Cardiology [place] [address] 05/04/2024 11:30 EST Appointment [facility] Hematology & Oncology - [address] [phone] 05/04/2024 12:00 EST Appointment [facility] Hematology & Oncology - [address] [phone] 06/12/2024 13:00 EST Appointment [facility] Radiology CT - [address] [address] documented as of this encounter Procedures Procedure [...] radiopharm IV, NOW X1, 1 dose, On Tue03/12/22 at 1245, Routine, Imaging Protocol Orders Given 03/12/2022 12:25 EDT 18.24 millicuries documented in this encounter Care Teams Software Performance Engineer Relationship Specialty Start Date End Date Linda Blancas MD [facility] [address] [place] [address] PCP - General 01/06/11 Adolfo Carreno MD [address] [place] [address] [phone] General Surgery 04/26/19 Augustina Colin MD PhD [address] [place] [phone] Medical Oncology 04/26/19 documented as of this encounter
--- OUTSIDE RECORDS SUMMARY | 2024-03-20 14:49 | XMS_ITS | Encounter Summary ---
Author Organization [facility] Address [address] [place] [address] Care Team Providers Care Substation Superintendent Name Role Phone Linda Blancas MD Primary Care Provider Adolfo Carreno MD Unavailable [phone] Augustina Colin MD PhD Unavailable Unavailable Encounter Details Date Type Department Care Team (Late st Contact Info) Description 03/12/2022 Specialty Pharmacy [facility] Ambulatory [facility] - [facility] [address] [place], [place] 191481 Allen Day, [facility] Social History Tobacco Use Types [...] as of this encounter Progress Notes * Sharda Rodriguez - 03/12/2022 1435 EDT [facility] Specialty Pharmacy Delivery Information Hours: Tuesday-Tuesday 8:30am - 5:00pm *Pharmacist available director of quality control 03/01 Delivery Service: [facility] Delivery Window: 10am - 2pm Date of Delivery: 03/17/22 Tracking # : [id number] * Allen Day RPH - 03/12/2022 1435 EDT Spoke with patient the use of omeprazole with capecitabine, while there is an interaction listed, after multivariate analysis and adjustment for gender, cancer stage, age, and ECOG performance scores, PPI use was no longer associated with a decrease in 5-year recurrence-free survival [HR 1.65 (0.93to 2.94)]. Overall survival was unaffected by PPI use in both analyses. I told the patient that if she gets no relief from either antacids or famotidine, that it is ok to use omeprazole. documented in this encounter Plan of Treatment Upcoming Encounters Date Type Department Care Team (Late st Contact Info) Description 04/02/2024 10:30 EDT Appointment [facility] Interventional Radiology Unit [address] [place] [address] [phone] 04/02/2024 15:15 EDT Office Visit [facility] Surgical Oncology - [facility] [address] [place], [place] 900791 Adolfo Carreno MD 111 [facility] 2 [place] [phone] 04/05/2024 9:30 EDT Telemedicine [facility] - [facility] Palliative Care Services [address] [place] [address] [phone] Chichi Woods MD [address] [place] [address] [phone] 04/11/2024 15:[address] [facility] Hematology & Oncology - [address] 804451 Alisson Carreon MD [address] [place] [address] Level [address] [place] [phone] 04/13/2024 13:[address] [facility] Hematology & Oncology - [address] [address] 04/13/2024 14:[address] [facility] Hematology & Oncology [address] [address] 04/16/2024 10:00 EST Telemedicine [facility] Palliative Care Services [address] [place] [address] [phone] Chichi Woods MD [address] [place] [address] [phone] 04/24/2024 9:00 EST Appointment [facility] Radiology CT Outpatient - [address] 685101 04/24/2024 11:00 EST Appointment [facility] Breast Imaging - [address] [address] 04/27/2024 12:[address] [facility] Hematology & Oncology - [address] [phone] 05/02/2024 15:[address] [facility] Hematology & Oncology [address] 181891 Alisson Carreon MD [address] [place] [address] [phone] 05/04/2024 10:15 EST Ancillary Procedure [facility] Cardiology - [address] [place] [address] 05/04/2024 11:[address] [facility] Hematology & Oncology [address] 830731 05/04/2024 12:[address] [facility] Hematology & Oncology [address] 387891 06/12/2024 13:00 EST Appointment [facility] Radiology CT - [address] [phone] documented as of this encounter Visit Diagnoses Not on filedocumented in this encounter Care Teams Substation Superintendent Relationship Specialty Start Date End Date Linda Blancas MD [address] [place] [address] PCP - General 01/06/11 Adolfo Carreno MD [address] [place] [address] [phone] General Surgery 04/26/19 Augustina Colin MD PhD [address] [place] [phone] Medical Oncology 04/26/19 documented as of this encounter
--- OUTSIDE RECORDS SUMMARY | 2024-03-20 14:49 | XMS_ITS | Encounter Summary ---
Author Organization [facility] Address [address] [place] [address] Care Team Providers Care Cvicu Rn Name Role Phone Linda Blancas MD Primary Care Provider [phone] Adolfo Carreno MD Unavailable [phone] Augustina Colin MD PhD Unavailable Unavailable Encounter Details Date Type Department Care Team (Late st Contact Info) Description 03/18/2022 Orders Only [facility] Radiology - [facility] [place] [address] [place], [place] [phone] Sudheer Eli DO Social History Tobacco Use [facility] [address] [place] [address] [phone] 04/02/2024 15:15 EDT Office Visit [facility] Surgical Oncology - [address] 839651 Adolfo Carreno MD [address] [place] [address] [phone] 04/05/2024 9:30 EDT Telemedicine [facility] - [facility] Palliative Care Services [address] [place] [address] 067461 Chichi Woods MD [address] [place] [address] [phone] 04/11/2024 15:00 EDT Telemedicine [facility] Hematology & Oncology [address] [phone] Alisson Carreon MD [address] [place] [address] [phone] 04/13/2024 13:30 EDT Appointment [facility] Hematology & Oncology [address] [phone] 04/13/2024 14:00 EDT Appointment [facility] Hematology & Oncology [address] [phone] 04/16/2024 10:00 EST Telemedicine [facility] - [facility] Palliative Care Services [address] [place] [address] [phone] Chichi Woods MD [address] [place] [address], [address] [place] [phone] 04/24/2024 9:00 EST Appointment [facility] Radiology CT Outpatient - [address] [id number] 04/24/2024 11:00 EST Appointment [facility] Breast Imaging - [facility] 1 [place], [place] 834771 04/27/2024 12:00 EST Appointment [facility] Hematology & Oncology - [address] [phone] 05/02/2024 15:00 EST Telemedicine [facility] Hematology & Oncology - [address] [phone] Alisson Carreon MD [address] [place] [address], [facility], Level [address] [place] [phone] 05/04/2024 10:15 EST Ancillary Procedure [facility] Cardiology - [address] [place], [place] [phone] 05/04/2024 11:30 EST Appointment [facility] Hematology & Oncology - [address] [phone] 05/04/2024 12:00 EST Appointment [facility] Hematology & Oncology [address] [phone] 06/12/2024 13:00 EST Appointment [facility] Radiology CT - [address] [phone] documented as of this encounter Visit Diagnoses Not on filedocumented in this encounter Care Teams Cvicu Rn Relationship Specialty Start Date End Date Linda Blancas MD [facility] [address] [place] [address] PCP - General 01/06/11 Adolfo Carreno MD [address] [place] [address], [facility] 2 [place] [phone] General Surgery 04/26/19 Augustina Colin MD PhD [address] [place] [address], [facility] 2 [place] [phone] Medical Oncology 04/26/19 documented as of this encounter
--- OUTSIDE RECORDS SUMMARY | 2024-03-20 14:49 | XMS_ITS | Encounter Summary ---
Author Organization [facility] Address [address] [place] [address] Care Team Providers Care Telecommunications Support Name Role Phone Linda Blancas MD Primary Care Provider [phone] Adolfo Carreno MD Unavailable [phone] Augustina Colin MD PhD Unavailable Unavailable Reason for Referral * Radiology Services (Routine/Next Available) - Closed Specialty Diagnoses / Procedures Referred By Doug hearn Referred To Contact Diagnoses Liver metastasis Procedures CT ANGIO ABDOMEN David Moya MD [address] [phone] [facility] Referral ID Status Reason Start Date Expiration Date Visits Re quested Visits Authorized [id number] Closed 03/22/2022 09/18/2022 1 1 Reason for Visit * Radiology Services (Routine/Next Available) - Closed Specialty Diagnoses / Procedures Referred By Doug hearn Referred To Contact Diagnoses Liver metastasis Procedures CT ANGIO ABDOMEN David Moya MD [address] [place] [phone] [facility] Referral ID Status Reason Start Date Expiration Date Visits Re quested Visits Authorized [id number] Closed 03/22/2022 09/18/2022 1 1 Encounter Details Date Type Department Care Team (Latest Contact Info) Description 03/31/2022 16:36 EDT - 03/31/2022 23:59 EDT [facility] Rad[facility] - [address] [address] Liver metastasis (HCC-CMS) (HCC) (HCC-CMS) Discharge Disposition: [...] Tablets by mouth as needed. 12/07/2023 mv-mn/C/glutamin/lysin /baxh518 (AIRBORNE, ASCORBATE SODIUM, ORAL) Take by mouth [...] 04/02/2024 10:30 EDT Appointment [facility] Interventional Radiology Unit [address] [place] [address] [phone] 04/02/2024 15:15 EDT Office Visit [facility] Surgical Oncology - [facility] [address] [place], [place] [phone] Adolfo Carreno MD 111 [facility], Level 2 [place] [phone] 04/05/2024 9:30 EDT Telemedicine [facility] - [facility] Palliative Care Services [address] [place], [place] [phone] Chichi Woods MD 111 [facility], [address] [place] [phone] 04/11/2024 15:00 EDT Telemedicine [facility] Hematology & Oncology - [address] 348761 Alisson Carreon MD [address] [place] [address] 2 [place] [phone] 04/13/2024 13:30 EDT Appointment [facility] Hematology & Oncology - [address] [phone] 04/13/2024 14:00 EDT Appointment [facility] Hematology & Oncology - [address] [address] 04/16/2024 10:00 EST Telemedicine [facility] - [facility] Palliative Care Services [address] [place] [address] Chichi Woods MD [address] [place] [address] [phone] 04/24/2024 9:00 EST Appointment [facility] Radiology CT Outpatient - [address] [phone] 04/24/2024 11:00 EST Appointment [facility] Breast Imaging - [address] 168821 04/27/2024 12:00 EST Appointment [facility] Hematology & Oncology - [address] 108931 05/02/2024 15:00 EST Telemedicine [facility] Hematology & Oncology - [address] [phone] Alisson Carreon MD [address] [place] [address], [facility] 2 [place] [phone] 05/04/2024 10:15 EST Ancillary Procedure [facility] Cardiology - [address] [place] [address] 05/04/2024 11:30 EST Appointment [facility] Hematology & Oncology [address] [address] 05/04/2024 12:00 EST Appointment [facility] Hematology & Oncology [address] [address] 06/12/2024 13:00 EST Appointment [facility] Radiology CT - [address] [address] documented as of this encounter Procedures Procedure Name Priority Date/Time Associated Diagnosis Comments CT ANGIO ABDOMEN Routine 03/31/2022 16:5 9 EDT Liver metastasis (HCC-CMS) (HCC) (HCC-CMS) documented in this encounter Results * CT ANGIO ABDOMEN (03/31/2022 16:59 EDT) [...] disc disease at L1-L2, similar to 2020. Programmer Numerical Control: No additional findings. Procedure Note Scriver, David Rowley MD - 04/02/2022 CT ANGIO ABDOMEN [...] Degenerative disc disease atL1-L2, similar to 2020. Programmer Numerical Control: No additional findings. IMPRESSION 1. Hepatic arterial [...] Once in imaging, 1 dose, Starting on Tue03/31/22 at 1640, Until Tue03/31/22 at 1700, Routine, Imaging Protocol Orders Given 03/31/2022 17:00 EDT 100 mL documented in this encounter Orders Medications Ordered That Vj ht Not Have Been Administered Count Last Ordered Date First Ordered Date iohexoL (OMNIPAQUE 350) solution 100 mL 1 1 documented in this encounter Care Teams Telecommunications Support Relationship Specialty Start Date End Date Linda Blancas MD [facility] [address] [place] [address] PCP - General 01/06/11 Adolfo Carreno MD [address] [place] [address] [phone] General Surgery 04/26/19 Augustina Colin MD PhD [address] [place] [address], [facility] 2 [place] [phone] Medical Oncology 04/26/19 documented as of this encounter
--- OUTSIDE RECORDS SUMMARY | 2024-03-20 14:49 | XMS_ITS | Encounter Summary ---
Author Organization [facility] Address [address] [place] [address] Care Team Providers Care Head Kiln Operator Name Role Phone Linda Blancas MD Primary Care Provider [phone] Adolfo Carreno MD Unavailable [phone] Augustina Colin MD PhD Unavailable Unavailable Encounter Details Date Type Department Care Team (Late st Contact Info) Description 02/25/2022 16:15 EDT Phlebotomy Only [facility] ED Center 2 Phlebotomy [address] [place], [place] [id number] Mass Communications Professor, Acc Phlebotomy Metastatic breast cancer (HCC-CMS) (HCC) (HCC-CMS); Osteopenia [...] [facility] Interventional Radiology Unit [address] [place], [place] 378991 04/02/2024 15:15 EDT Office Visit [facility] Surgical Oncology - [address] [phone] Adolfo Carreno MD [address] [place] [address] 2 [place] [phone] 04/05/2024 9:30 EDT Telemedicine [facility] - [facility] Palliative Care Services [address] [place], [place] [phone] Chichi Woods MD [address] [place] [address], [address] [phone] 04/11/2024 15:00 EDT Telemedicine [facility] Hematology & Oncology - [address] 919231 Alisson Carreon MD [address] [place] [address] 2 [place] [phone] 04/13/2024 13:30 EDT Appointment [facility] Hematology & Oncology [address] [phone] 04/13/2024 14:00 EDT Appointment [facility] Hematology & Oncology - [address] 628221 04/16/2024 10:00 EST Telemedicine [facility] - [facility] Palliative Care Services [address] [place], [place] 6909[address] Chichi Woods MD [address] [facility], [address] [phone] 04/24/2024 9:00 EST Appointment [facility] Radiology CT Outpatient - [address] [phone] 04/24/2024 11:00 EST Appointment [facility] Breast Imaging - [address] 743641 04/27/2024 12:00 EST Appointment [facility] Hematology & Oncology - [address] [phone] 05/02/2024 15:00 EST Telemedicine [facility] Hematology & Oncology - [address] [phone] Alisson Carreon MD [address] [place] [address], Level 2 [place] [phone] 05/04/2024 10:15 EST Ancillary Procedure [facility] Cardiology - [place] [address] 05/04/2024 11:30 EST Appointment [facility] Hematology & Oncology - [address] 241501 05/04/2024 12:00 EST Appointment [facility] Hematology & Oncology - [address] 714231 06/12/2024 13:00 EST Appointment [facility] Radiology CT - [address] [phone] documented as of this encounter Procedures Procedure Name Priority Date/Time Associated Diagnosis Comments VITAMIN D (25,OH) Routine 02/25/2022 15: 02 EDT Osteopenia of necks of both femurs Metastatic breast cancer (HCC-CMS) (HCC) (HCC-CMS) CA 27.29 Routine 02/25/2022 15:02 EDT Osteopenia of necks of both femurs Metastatic breast cancer (HCC-CMS) (HCC) (HCC-CMS) COMPLETE BLOOD COUNT AND DIFFERENTIAL STAT 02/25/2022 15:02 EDT Metastatic breast cancer (HCC-CMS) (HCC) (HCC-CMS) COMPREHENSIVE METABOLIC PANEL (CMP) STAT 02/25/2022 15:02 EDT Metastatic breast cancer (HCC-CMS) (HCC) (HCC-CMS) documented in this encounter Results * VITAMIN D (25,OH) (02/25/2022 15:02 EDT) 25OH Vitamin D Tot 65 30 - 100 ng/mL 02/26/2022 11:13 EDT [facility] Comment: Vitamin D 25,OH Interpretive Ranges: Deficiency: ??<10.0 ng/mL Insufficiency: ??10.0 - 30.0 ng/mL Sufficiency: ??30.0 - 100.0 ng/mL Toxicity: ??>100.0 ng/mL Blood VENOUS BLOOD / Unknown Venipuncture / Unknown 02/25/2022 15:02 EDT 02/25/2022 15:05 EDT Augustina Colin MD PhD CHEMISTRY & BLOOD GA S ORDERABLES [facility] [address] [place] [address] * (ABNORMAL) CA 27.29 (02/25/2022 15:02 EDT) CA 27.29 120.7(H) <38.0 U/mL 02/26/2022 8:37 [facility] Comment: NOTE: Serum CA 27.29 concentration should not be interpreted as absolute evidence for the presence or absence of malignant disease. Assayed on Siemens ADVIA Veebeamaur XPT using chemiluminescent technology. ??Values obtained by using different assay methods cannot be used interchangeably. Blood VENOUS BLOOD / Unknown Venipuncture / Unknown 02/25/2022 15:02 EDT 02/25/2022 15:05 EDT Augustina Colin MD PhD CHEMISTRY & BLOOD GA S ORDERABLES [facility] [address] [place] [address] * (ABNORMAL) COMPREHENSIVE METABOLIC PANEL (CMP) (02/25/2022 15:02 EDT) Sodium 145 136 - 145 mmol/L 02/25/2022 15:26 [facility] Potassium 5.2(H) 3.5 - 5.0 mmol/L 02/25/2022 15:26 [facility] Chloride 103 96 - 110 mmol/L 02/25/2022 15:26 [facility] CO2 Total 34(H) 22 - 32 mmol/L 02/25/2022 15:26 [facility] Glucose 95 70 - 100 mg/dL 02/25/2022 15:26 [facility] BUN 21 10 - 26 mg/dL 02/25/2022 15:26 [facility] Creatinine 0.74 0.52 - 1.04 mg/dL 02/25/2022 15:26 [facility] eGFR 93 >60 mL/min/1.7 3m2 02/25/2022 15:26 [facility] Total Protein 6.9 6.3 - 8.2 g/dL 02/25/2022 15:26 [facility] Albumin 4.2 3.4 - 4.9 g/dL 02/25/2022 15:26 [facility] Alkaline Phosphatase 78 38 - 126 U/L 02/25/2022 15:26 [facility] AST 51(H) 15 - 46 U/L 02/25/2022 15:26 [facility] ALT 39(H) <35 U/L 02/25/2022 15:26 [facility] Bilirubin, Total 0.5 <1.4 mg/dL 02/26/20 15:26 [facility] Calcium 9.9 8.5 - 10.5 mg/dL 02/25/2022 15:26 [facility] Albumin/Globulin Ratio 1.6 1.0 - 2.5 02/25/2022 15:26 [facility] Anion Gap 8 5 - 14 02/25/2022 15:26 [facility] Blood VENOUS BLOOD / Unknown Venipuncture / Unknown 02/25/2022 15:02 EDT 02/25/2022 15:05 EDT Augustina Colin MD PhD CHEMISTRY & BLOOD GA S ORDERABLES Performing Organization Address City/State/[facility] Co de Phone Number [facility] [address] [place] [address] * (ABNORMAL) COMPLETE BLOOD COUNT AND DIFFERENTIAL (02/25/2022 15:02 EDT) WBC 7.09 4.00 - 12.40 K/cmm 02/25/2022 15:13 [facility] RBC 3.76(L) 3.86 - 5.04 M/cmm 02/25/2022 15:13 [facility] Hemoglobin 14.2 11.6 - 15.2 gm/dL 02/25/2022 15:13 [facility] HCT 40.7 34.9 - 44.4 % 02/25/2022 15:13 [facility] MCV 108(H) 81 - 98 fl 02/25/2022 15:13 [facility] MCH 37.8(H) 26.7 - 33.3 pg 02/25/2022 15:13 [facility] MCHC 34.9 32.1 - 35.9 gm/dL 02/25/2022 15:13 [facility] RDW-CV 13.1 <14.7 % 02/25/2022 15:13 [facility] RDW-SD 52.9(H) <50.4 fl 02/25/2022 15:13 [facility] PLT 208 141 - 377 K/cmm 02/25/2022 15:13 [facility] MPV 9.7 9.5 - 12.7 fl 02/25/2022 15:13 [facility] % Neutrophils 51.7 % 02/25/2022 15:13 [facility] % Lymphocytes 36.4 % 02/25/2022 15:13 [facility] % Monocytes 10.0 % 02/25/2022 15:13 [facility] % Eosinophils 1.4 % 02/25/2022 15:13 [facility] % Basophils 0.4 % 02/25/2022 15:13 [facility] % Immature Grans 0.1 % 02/26/20 15:13 [facility] Absolute Neutrophils 3.66 2.20 - 8.85 K/cmm 02/25/2022 15:13 [facility] Absolute Lymphocytes 2.58 1.09 - 3.30 K/cmm 02/25/2022 15:13 [facility] Absolute Monocytes 0.71 0.10 - 0.80 K/cmm 02/25/2022 15:13 [facility] Absolute Eosinophils 0.10 0.03 - 0.61 K/cmm 02/25/2022 15:13 [facility] ABS Basophils 0.03 0.01 - 0.11 K/cmm 02/25/2022 15:13 [facility] Absolute Immature Grans 0.01 0.00 - 0.06 K/cmm 02/25/2022 15:13 EDT [facility] Type of Differential: Auto 02/25/2022 15:13 EDT [facility] Blood VENOUS BLOOD / Unknown Venipuncture / Unknown 02/25/2022 15:02 EDT 02/25/2022 15:05 EDT Augustina Colin MD PhD PACKAGES & DNA PROBE ORDERABLES [facility] [address] [place] [address] documented in this encounter Visit Diagnoses Diagnosis Metastatic breast cancer Osteopenia of necks of both femurs documented in this encounter Care Teams Head Kiln Operator Relationship Specialty Start Date End Date Linda Blancas MD [facility] [address] [place] [address] PCP - General 01/06/11 Adolfo Carreno MD [address] [place] [phone] General Surgery 04/26/19 Augustina Colin MD PhD [address] [place] [phone] Medical Oncology 04/26/19 documented as of this encounter
--- OUTSIDE RECORDS SUMMARY | 2024-03-20 14:49 | XMS_ITS | Encounter Summary ---
Author Organization [facility] Address [address] [place] [address] Care Team Providers Care Gas Plumbing Inspector Name Role Phone Linda Blancas MD Primary Care Provider [phone] Adolfo Carreno MD Unavailable [phone] Augustina Colin MD PhD Unavailable Unavailable Reason for Visit * Reason Onset Date Comments Prior Auth, Medication 03/25/2022 Encounter Details Date Type Department Care Team (Late st Contact Info) Description 03/25/2022 Telephone [facility] Cancer Center Hematology & Oncology - [facility] [address] [place], [place] [phone] Augustina Colin, PhD Prior Auth, Medication Social History Tobacco Use Types Packs/Day Years [...] Notes * Telephone Encounter - Ana Laura Cadet - 03/25/2022 1128 EDT Prior Authorization Not Required Medication: Capecitabine 1000mg bid Insurance Response: [place] not required. Pharmacy: [facility] Prior Authorization Submission Process - Urgent Medication: Capecitabine 1000mg bid Insurance: P Insurance Type: Commercial Date PA Request Received: 03/22/22 PA Submission Date: 03/25/22 [facility] Ferrell: N/A - submitted via fax Submitted by: Ana Laura Phone: [phone] documented in this encounter Plan of Treatment Upcoming Encounters Date Type Department Care Team (Late st Contact Info) Description 04/02/2024 10:30 EDT Appointment [facility] Interventional Radiology Unit [address] [place] [address] 04/02/2024 15:15 EDT Office Visit [facility] Surgical Oncology - [address] [phone] Adolfo Carreno MD 111 [facility], Level 2 [place] [phone] 04/05/2024 9:30 EDT Telemedicine [facility] - [facility] Palliative Care Services [address] [place], [place] [phone] Chichi Woods MD 111 [facility], [address] [phone] 04/11/2024 15:00 EDT Telemedicine [facility] Hematology & Oncology - [address] [phone] Alisson Carreon MD [address] [place] [address], [facility] 2 [place] [phone] 04/13/2024 13:30 EDT Appointment [facility] Hematology & Oncology - [address] [phone] 04/13/2024 14:00 EDT Appointment [facility] Hematology & Oncology [address] [address] 04/16/2024 10:00 EST Telemedicine [facility] - [facility] Palliative Care Services [address] [place] [address] Chichi Woods MD [address] [place] [address], [address] [phone] 04/24/2024 9:00 EST Appointment [facility] Radiology CT Outpatient - [address] [id number] 04/24/2024 11:00 EST Appointment [facility] Breast Imaging - [address] 825711 04/27/2024 12:00 EST Appointment [facility] Hematology & Oncology - [address] 600171 05/02/2024 15:00 EST Telemedicine [facility] Hematology & Oncology - [address] 175481 Alisson Carreon MD [address] [place] [address], [facility] 2 [place] [phone] 05/04/2024 10:15 EST Ancillary Procedure [facility] Cardiology - [address] [place] [address] 05/04/2024 11:30 EST Appointment [facility] Hematology & Oncology - [address] [address] 05/04/2024 12:00 EST Appointment [facility] Hematology & Oncology - [address] [address] 06/12/2024 13:00 EST Appointment [facility] Radiology CT - [address] [address] documented as of this encounter Visit Diagnoses Not on filedocumented in this encounter Care Teams Gas Plumbing Inspector Relationship Specialty Start Date End Date Linda Blancas MD [facility] [address] [place] [address] PCP - General 01/06/11 Adolfo Carreno MD [address] [place] [phone] General Surgery 04/26/19 Augustina Colin MD PhD [address] [place] [phone] Medical Oncology 04/26/19 documented as of this encounter
--- OUTSIDE RECORDS SUMMARY | 2024-03-20 14:49 | XMS_ITS | Encounter Summary ---
Author Organization [facility] Address [address] [place] [address] Care Team Providers Care Windows Laptop Technician Name Role Phone Linda Blancas MD Primary Care Provider [phone] Adolfo Carreno MD Unavailable [phone] Augustina Colin MD PhD Unavailable Unavailable Reason for Visit * Reason Onset Date Comments Coordination Of Care 03/18/2022 Encounter Details Date Type Department Care Team (Late st Contact Info) Description 03/18/2022 Telephone [facility] Cancer Center Hematology & Oncology - [facility] [address] [place], [place] [phone] Garima Boyce, RN Coordination Of Care Social History Tobacco [...] Telephone Encounter - Garima Boyce RN - 03/18/2022 1029 EDT PA placed for Sales Layer testing. Request sent to patient to complete [employer] financial application. documented in this encounter Plan of Treatment Upcoming Encounters Date Type Department Care Team (Late st Contact Info) Description 04/02/2024 10:30 EDT Appointment [facility] Interventional Radiology Unit [address] [place] [address] 04/02/2024 15:15 EDT Office Visit [facility] Surgical Oncology - [address] [phone] Adolfo Carreno MD [address] [place] [phone] 04/05/2024 9:30 EDT Telemedicine [facility] - [facility] Palliative Care Services [address] [place] [address] [phone] Chichi Woods MD [address] [place] [phone] 04/11/2024 15:00 EDT Telemedicine [facility] Hematology & Oncology - [address] [phone] Alisson Carreon MD [address] [place] [address] 2 [place] [phone] 04/13/2024 13:30 EDT Appointment [facility] Hematology & Oncology - [address] [phone] 04/13/2024 14:00 EDT Appointment [facility] Hematology & Oncology - [address] [address] 04/16/2024 10:00 EST Telemedicine [facility] - [facility] Palliative Care Services [address] [place] [address] [phone] Chichi Woods MD [address] [place] [address] [phone] 04/24/2024 9:00 EST Appointment [facility] Radiology CT Outpatient - [address] [address] 04/24/2024 11:00 EST Appointment [facility] Breast Imaging - [facility] [address] [place] [address] [place], [place] 2445[address] 04/27/2024 12:00 EST Appointment [facility] Hematology & Oncology [address] 500161 05/02/2024 15:00 EST Telemedicine [facility] Hematology & Oncology - [address] [address] Alisson Carreon MD [address] [place] [address], Level [address] [place] [phone] 05/04/2024 10:15 EST Ancillary Procedure [facility] Cardiology - [place] [address] 05/04/2024 11:30 EST Appointment [facility] Hematology & Oncology - [address] [phone] 05/04/2024 12:00 EST Appointment [facility] Cancer Center Hematology & Oncology - [address] 575651 06/12/2024 13:00 EST Appointment [facility] Radiology CT - [address] [phone] documented as of this encounter Visit Diagnoses Diagnosis Metastatic breast cancer- Primary documented in this encounter Care Teams Windows Laptop Technician Relationship Specialty Start Date End Date Linda Blancas MD [facility] [address] [place] [address] PCP - General 01/06/11 Adolfo Carreno MD [address] [place] [phone] General Surgery 04/26/19 Augustina Colin MD PhD [address] [place] [phone] Medical Oncology 04/26/19 documented as of this encounter
--- OUTSIDE RECORDS SUMMARY | 2024-03-20 14:50 | XMS_ITS | Encounter Summary ---
Author Organization [facility] Address [address] [place] [address] Care Team Providers Care Financial Representative Name Role Phone Linda Blancas MD Primary Care Provider Adolfo Carreno MD Unavailable [phone] Augustina Colin MD PhD Unavailable Unavailable Encounter Details Date Type Department Care Team (Late st Contact Info) Description 01/29/2022 Specialty Pharmacy [facility] Ambulatory Pharm[facility] - [facility] [address] [place], [place] [id number] Allen Day, [facility] Social History Tobacco Use Types Packs/Day Years [...] as of this encounter Progress Notes * Roxanne Martin - 01/29/2022 1527 EDT [facility] Specialty Pharmacy Delivery Information Hours: Tuesday-Tuesday 8:30am - 5:00pm *Pharmacist available electronic components assembler 03/01 Delivery Service: [facility] Delivery Window: 1pm - 5pm Date of Delivery: 02/19/22 Tracking # : [id number] documented in this encounter Plan of Treatment Upcoming Encounters Date Type Department Care Team (Late st Contact Info) Description 04/02/2024 10:30 EDT Appointment [facility] Interventional Radiology Unit [address] [place] [phone] 04/02/2024 15:15 EDT Office Visit [facility] Surgical Oncology - [address] [phone] Adolfo Carreno MD [address] [place] [address], [facility] 2 [place] [phone] 04/05/2024 9:30 EDT Telemedicine [facility] - [facility] Palliative Care Services [address] [place] [phone] Chichi Woods MD [address] [place] [address], [address] [phone] 04/11/2024 15:00 EDT Telemedicine [facility] Hematology & Oncology - [address] [phone] Alisson Carreon MD [address] [place] [address], Level [address] [place] [phone] 04/13/2024 13:30 EDT Appointment [facility] Hematology & Oncology [address] [phone] 04/13/2024 14:00 EDT Appointment [facility] Hematology & Oncology [address] [phone] 04/16/2024 10:00 EST Telemedicine [facility] - [facility] Palliative Care Services [address] [place] [address] [phone] Chichi Woods MD [address] [place] [address], [address] [phone] 04/24/2024 9:00 EST Appointment [facility] Radiology CT Outpatient - [address] 367851 04/24/2024 11:00 EST Appointment [facility] Breast Imaging - [facility] S [address] [phone] 04/27/2024 12:00 EST Appointment [facility] Hematology & Oncology - [address] [phone] 05/02/2024 15:00 EST Telemedicine [facility] Hematology & Oncology - [address] 757401 Alisson Carreon MD [address] [place] [address], Level [address] [place] [phone] 05/04/2024 10:15 EST Ancillary Procedure [facility] Cardiology - [address] [place], [place] [phone] 05/04/2024 11:30 EST Appointment [facility] Hematology & Oncology - [address] [address] 05/04/2024 12:00 EST Appointment [facility] Cancer Center Hematology & Oncology [address] [address] 06/12/2024 13:00 EST Appointment [facility] Radiology CT - [address] [address] documented as of this encounter Visit Diagnoses Not on filedocumented in this encounter Care Teams Financial Representative Relationship Specialty Start Date End Date Linda Blancas MD [facility] [address] [place] [address] PCP - General 01/06/11 Adolfo Carreno MD [address] [place] [address] 2 [place] [phone] General Surgery 04/26/19 Augustina Colin MD PhD [address] [place] [address] 2 [place] [phone] Medical Oncology 04/26/19 documented as of this encounter
--- OUTSIDE RECORDS SUMMARY | 2024-03-20 14:50 | XMS_ITS | Encounter Summary ---
Author Organization [facility] Address [address] [place] [address] Care Team Providers Care Head Shipper Name Role Phone Linda Blancas MD Primary Care Provider [phone] Adolfo Carreno MD Unavailable [phone] Augustina Colin MD PhD Unavailable Unavailable Reason for Referral * Radiology Services (Routine/Next Available) - Authorization Not Required Specialty Diagnoses / Procedures [facility] Referred To Contact Diagnoses Metastatic breast cancer Procedures IR BIOPSY Augustina oClin MD PhD [facility] Referral ID Status Reason Start Date Expiration Date Visits Requested Visits Authorized [id number] Authorization Not Required 12/24/2021 1 1 Reason for Visit * Reason Comments Follow-up Encounter Details Date Type Department Care Team (Late st Contact Info) Description 12/24/2021 13:30 EDT Office Visit [facility] Hematology & Oncology - [place] [address] [place] [address] Augustina Colin MD PhD Metastatic breast cancer [...] Sign Reading Time Taken Comments Blood Pressure 132/60 12/24/2021 1331 EDT Pulse 83 12/24/2021 1331 EDT Temperature 36.4 ??C (97.5 ??F) 12/24/2021 1331 EDT Respiratory Rate 16 12/24/2021 1331 EDT Oxygen Saturation 100% 12/24/2021 1331 EDT Inhaled Oxygen Concentration - - Weight 60.5 kg (133 lb 6.4 oz) 12/24/2021 1331 E DT Height - - Body Mass Index 25.21 12/16/2021 0900 EDT documented in this encounter Functional Status [...] Notes * Augustina Colin MD PhD - 12/24/2021 1330 EDT REASON FOR OFFICE VISIT: ??Discussion of side effects related to anti estrogen therapy and scan results ? PROBLEM LIST: 1. 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 a. ??Ultrasound performed in [place]??identifying an irregular heterogeneous soft tissue mass measuring 1.2 x 1.2 x 1.5 cm. ?? b.?Two punch biopsies near the site of the skin changes the right??breast perfomed by Dr Carreno??10/21/2016; ??Pathology identified an invasive ductal type carcinoma involving the epidermis and dermis of the skin, nuclear grade 2, which was ER+80%, AZ+20%. ??HER-2 1+ by IHC. ??ANNE MARIE revealed [...] breast tumor 07/07/17 and placement of tissue pre press operator. ??1.9 cm tumor at time of surgery, well differentiated, with LVI present, and negative margins. G. Biopsy left cervical LN 02/11/20 - consistent with metastatic adenocarcinoma consistent with breast primary H. Fulvestrant initiated 03/06/20; abemaciclib initiated 03/31/20 discontinued 06/01 due to diarrhea; palbociclib initiated March 2021 2. ??Restaging scans: ?? - MRI Abdomen 11/23/21: Interval increase in size of existing hepatic lesions as well as developmentof multiple new hepatic lesions concerning for progression of metastatic disease. Interval increasein size of abnormal osseous enhancement in the thoracolumbar spine and posterior left ribs also concerning for progression of metastatic disease and consistent with findings on recent whole body bone scan. - Nuclear bone scan 11/23/21: highly suspicious for progression of skeletal metastatic disease - CT Chest 11/26/21 - Stable to minimally decreased size of a solitary left upper lobe nodule since the most recent comparison study, etiology uncertain. This finding has been present since at least 10/30/2018; Stable mildly enlarged right internal mammary lymph node. 3. ??DCIS in 2004 at the age [...] ??Ms Morales presents to clinic to discuss biopsy results. She had an interventional radiology biopsy on 12/16/2021 which did not identify malignant cells. I discussed her case with interventional radiologist who performed the procedure and he feels that the biopsy needle may have been positioned wrong. They are planning to rebiopsy. She started capecitabine about 4 weeks ago. No diarrhea but she already has hand symptoms. ROS: A 10 point review of systems was obtained. Other than described in the subjective she has no concerns or issues. Medications Prior to Today's Visit Medication Sig ??? calcium-vitamin D (OS-CHAR D) 500 mg(1,250mg) -200 unit per tablet Take 1 Tab by mouth 2 times daily with breakfast and dinner. ??? capecitabine (XELODA) 500 mg tablet Take 3 Tablets by mouth 2 times daily. ??? capecitabine (XELODA) 500 mg tablet Take 3 Tablets by mouth 2 times daily. Take for 14 days, 7 days off for a cycle length of 21 days. ??? DOXYLAMINE SUCCINATE (UNISOM ORAL) Take by mouth as needed. Takes half a tablet ??? gabapentin (NEURONTIN) 100 mg capsule Take 2 Caps by mouth 2 times daily. (Patient taking differently: Take 600 mg by mouth 2 times daily. Takes 300 mg qam and pm and 600 mg qhs) ??? ibuprofen (MOTRIN) 200 mg tablet Take 400 mg by mouth as needed. ??? MULTIVITS W-CA,FE,OTHER MIN (WOMEN'S DAILY FORMULA ORAL) Take by mouth daily. ??? mv-mn/C/glutamin/lysin/cmcq555 (A[place]NE, ASCORBATE SODIUM, ORAL) Take by mouth as needed. ??? omeprazole (PRILOSEC) 20 mg capsule Take 20 mg by mouth daily. ??? ondansetron (ZOFRAN-ODT) 8 mg disintegrating tablet Take 1 Tablet by mouth every 8 hours as needed for Nausea. (Patient not taking: Reported on 12/16/2021) ??? palbociclib 100 mg capsule Take 100 [...] capsule Take 1 Cap by mouth daily. ??? zolpidem (AMBIEN) 5 mg tablet Take 5 mg by mouth at bedtime as needed for Sleep. Reported on 11/01/2016 No facility-administered medications prior to visit. Social [...] calculated from the following: Height as of 12/16/21: 154.9 cm (61). Weight as of 12/16/21: 60.3 kg (133 lb). ECOG Performance Status: 0 General: Comfortable, cooperative and in no apparent distress NEURO: Alert and oriented x 3; Grossly neurologically intact DIAGNOSTIC DATA No visits with results within 1 Day(s) from this visit. Latest known visit with results is: Hospital Outpatient Visit on 12/16/2021 Component Date Value Ref Range Status ??? I.N.R. 12/16/2021 1.0 0.9 - 1.1 Ratio Final ??? Pro Time 12/16/2021 12.0 10.4 - 12.6 secs Final ??? Sodium 12/16/2021 139 136 - 145 mmol/L Final ??? Potassium 12/16/2021 4.1 3.5 - 5.0 mmol/L Final ??? Chloride 12/16/2021 109 96 - 110 mmol/L Final ??? CO2 Total 12/16/2021 25 22 - 32 mmol/L Final ??? Glucose 12/16/2021 99 70 - 100 mg/dL Final ??? BUN 12/16/2021 16 10 - 26 mg/dL Final ??? Creatinine 12/16/2021 0.66 0.52 - 1.04 mg/dL Final ? ? eGFR 12/16/2021 100 >60 mL/min/1.73m2 Final ??? Total Protein 12/16/2021 6.5 6.3 - 8.2 g/dL Final ??? Albumin 12/16/2021 3.9 3.4 - 4.9 g/dL Final ??? Alkaline Phosphatase 12/16/2021 89 38 - 126 U/L Final ??? AST 12/16/2021 33 15 - 46 U/L Final ? ? ALT 12/16/2021 19 <35 U/L Final ? ? Bilirubin, Total 12/16/2021 <0.5 <1.4 mg/dL Final ??? Calcium 12/16/2021 8.8 8.5 - 10.5 mg/dL Final ??? Albumin/Globulin Ratio 12/16/2021 1.5 1.0 - 2.5 Final ??? Anion Gap 12/16/2021 5 5 - 14 Final ??? WBC 12/16/2021 6.48 4.00 - 12.40 K/cmm Final ??? RBC 12/16/2021 3.20 (A) 3.86 - 5.04 M/cmm Final ??? Hemoglobin 12/16/2021 12.2 11.6 - 15.2 gm/dL Final ??? HCT 12/16/2021 35.1 34.9 - 44.4 % Final ??? MCV 12/16/2021 110 (A) 81 - 98 fl Final ??? MCH 12/16/2021 38.1 (A) 26.7 - 33.3 pg Final ??? MCHC 12/16/2021 34.8 32.1 - 35.9 gm/dL Final ? ? RDW-CV 12/16/2021 13.6 <14.7 % Final ? ? RDW-SD 12/16/2021 52.7 (A) <50.4 fl Final ??? PLT 12/16/2021 380 (A) 141 - 377 K/cmm Final ??? MPV 12/16/2021 9.4 (A) 9.5 - 12.7 fl Final ??? Neutrophils 12/16/2021 50.3 % Final ??? Lymphocytes 12/16/2021 33.6 % Final ??? Monocytes 12/16/2021 13.9 % Final ??? Eosinophils 12/16/2021 0.8 % Final ??? Basophils 12/16/2021 0.9 % Final ??? Immature Grans 12/16/2021 0.5 % Final ??? Absolute Neutrophils 12/16/2021 3.26 2.20 - 8.85 K/cmm Final ??? Absolute Lymphocytes 12/16/2021 2.18 1.09 - 3.30 K/cmm Final ??? Absolute Monocytes 12/16/2021 0.90 (A) 0.10 - 0.80 K/cmm Final ??? Absolute Eosinophils 12/16/2021 0.05 0.03 - 0.61 K/cmm Final ??? Absolute Basophils 12/16/2021 0.06 0.01 - 0.11 K/cmm Final ??? Absolute Immature Grans 12/16/2021 0.03 0.00 - 0.06 K/cmm Final ??? Type of Differential: 12/16/2021 Auto Final ??? Note to Patient 12/16/2021 Final Value:This result contains rich text formatting which cannot be displayed here. ??? Final Diagnosis 12/16/2021 Final Value:This result contains rich text formatting which cannot be displayed here. ??? Diagnosis Comment 12/16/2021 Final Value:This result contains rich text formatting which cannot be displayed here. ??? Attestation 12/16/2021 Final Value:There was significant resident/fellow involvement in the diagnostic evaluation of this case. By the signature below, the attending physician certifies that they have personally conducted a gross and/or microscopic examination of the described specimens and rendered or confirmed the above diagnosis. ??? Rapid Diagnosis 12/16/2021 Final Value:This result contains rich text formatting which cannot be displayed here. ??? Clinical History 12/16/2021 Final Value:This result contains rich text formatting which cannot be displayed here. ??? Gross Description 12/16/2021 Final Value:This result contains rich text formatting which cannot be displayed here. ??? Resident/Fellow: 12/16/2021 Final Value:This result contains rich text formatting which cannot be displayed here. ??? Performing Lab 12/16/2021 Final Value:This result contains rich text formatting which cannot be displayed here. ??? Note to Patient 12/16/2021 Final Value:This result contains rich text formatting which cannot be displayed here. ??? Final Diagnosis 12/16/2021 Final Value:This result contains rich text formatting which cannot be displayed here. ??? Diagnosis Comment 12/16/2021 Final Value:This result contains rich text formatting which cannot be displayed here. ??? Attestation 12/16/2021 Final Value:This result contains rich text formatting which cannot be displayed here. ??? Clinical History 12/16/2021 Final Value:This result contains rich text formatting which cannot be displayed here. ??? Gross Description 12/16/2021 Final Value:This result contains rich text formatting which cannot be displayed here. ??? Resident/Fellow: 12/16/2021 Final Value:This result contains rich text formatting which cannot be displayed here. ??? Performing Lab 12/16/2021 Final Value:This result contains rich text formatting which cannot be displayed here. ASSESSMENT: ??Ms Bernstein is a 61-year-old female with metastatic breast cancer.?? She had been currently receiving fluvesterant and palbociclb. The MR of the abdomen indicates progression of liver lesions. A biopsy was attempted 12/16/21 but did not identify malignancy. She will have a repeat biopsy and and send for TEMPUS testing to assess for PI3K kinase mutation and the ability to use apelesib as well as other targetable changes. She has been on capecitabine for approximatley 4 weeks. She started with Capecitabine 1500mg am [id number] pm 2 weeks on 1 week off initially. She is already having hand symptoms morena we will use the [facility] dosing of 1 week on 1 week off. Since she has progressive bone mets we will increae Zolendronic acid to every 3 mos for now. She takes a vitamin D supplement and we have encouraged weight bearing exercise. PLAN: 1. Capecitabine 1500mg am and 1500mg pm 1week on 1 week off. 2. Zoledronic acid q 3mo, next due December 2021 3. Arrange for repeat IR guided biopsy of liver lesion; Send for Tempus testing 4. MR abdomen in Feb 15. FUR 1mo; CBCD CMP at that time. Patient is encouraged call with any intercurrent concerns or problems. documented in this encounter Plan of Treatment Upcoming Encounters Date Type Department Care Team (Late st Contact Info) Description 04/02/2024 10:30 EDT Appointment [facility] Interventional Radiology Unit [address] [place] [phone] 04/02/2024 15:15 EDT Office Visit [facility] Surgical Oncology - [address] [phone] Adolfo Carreno MD [address] [facility], [address] [place] [phone] 04/05/2024 9:30 EDT Telemedicine [facility] - [facility] Palliative Care Services [address] [place], [place] [phone] Chichi Woods MD 111 [facility], [address] [phone] 04/11/2024 15:00 EDT Telemedicine [facility] Hematology & Oncology - [address] [phone] Alisson Carreon MD [address] [place] [address], [facility] 2 [place] [phone] 04/13/2024 13:30 EDT Appointment [facility] Hematology & Oncology - [address] [phone] 04/13/2024 14:00 EDT Appointment [facility] Hematology & Oncology [address] [phone] 04/16/2024 10:00 EST Telemedicine [facility] - [facility] Palliative Care Services [address] [place] [phone] Chichi Woods MD [address] [place] [phone] 04/24/2024 9:00 EST Appointment [facility] Radiology CT Outpatient - [address] [phone] 04/24/2024 11:00 EST Appointment [facility] Breast Imaging - [address] [id number] 04/27/2024 12:00 EST Appointment [facility] Hematology & Oncology - [address] [phone] 05/02/2024 15:00 EST Telemedicine [facility] Hematology & Oncology - [address] [phone] Alisson Carreon MD [address] [place] [address], [facility] [address] [place] [phone] 05/04/2024 10:15 EST Ancillary Procedure [facility] Cardiology - [address] [place] [address] 05/04/2024 11:30 EST Appointment [facility] Hematology & Oncology [address] [id number] 05/04/2024 12:00 EST Appointment [facility] Hematology & Oncology [address] [id number] 06/12/2024 13:00 EST Appointment [facility] Radiology CT [address] [id number] documented as of this encounter Results * IR BIOPSY (01/08/2022 15:00 EDT) Anatomical Region Laterality Modality Computed Tomogra phy 01/09/2022 13:0 0 EDT Impressions 01/09/2022 13:00 [address]-guided liver mass biopsy. Narrative 01/09/2022 13:[address]-guided liver biopsy HISTORY: Liver mass. Nondiagnostic ultrasound-guided biopsy. TECHNIQUE: Informed consent was obtained after the risks and benefits of the procedure were discussed with the patient. The specific risks of this procedure which were discussed include but were not limited to bleeding, infection, injury to liver, bile ducts, or adjacent structures including bowel and lung. A procedural time out was performed prior to the procedure, where the procedure, site, and patient identification was confirmed by all healthcare providers present in the room. Moderate sedation was provided with intravenous Versed and fentanyl while continuously monitoring the patient's blood pressure, heart rate, respiratory rate, and pulse oxygenation. The patient's right upper quadrant was sterilely prepped and draped. Lidocaine 1% was administered to anesthetize the skin and soft tissues. Under CT fluoroscopic guidance, a 19-gauge coaxial needle was inserted via an intercostal approach into the right lobe of the liver. A contrast-enhanced CT was then performed, which revealed a low-attenuation 1.4 cm mass in the right lobe of the liver. Under CT fluoroscopic guidance, the needle was advanced into the mass. Through the needle, multiple 25-gauge fine-needle aspirate biopsies were obtained. Pathology reviewed the samples and requested core needle biopsy. Next, multiple 20-gauge core needle biopsies of the mass were performed. The coaxial needle was then removed, and immediate postprocedure CT revealed no apparent complication. A dressing was applied. Procedure Note Scriver, David Rowley MD - 01/09/2022 CT-guided liver biopsy HISTORY: Liver mass. Nondiagnostic ultrasound-guided biopsy. TECHNIQUE: Informed consent was obtained after the risks and benefits ofthe procedure were discussed with the patient. The specific risks of thisprocedure which were discussed include but were not limited to bleeding,infection, injury to liver, bile ducts, or adjacent structures includingbowel and lung. A procedural time out was performed prior to theprocedure, where the procedure, site, and patient identification wasconfirmed by all healthcare providers present in the room. Moderatesedation was provided with intravenous Versed and fentanyl whilecontinuously monitoring the patient's blood pressure, heart rate,respiratory rate, and pulse oxygenation. The patient's right upper quadrant was sterilely prepped and draped.Lidocaine 1% was administered to anesthetize the skin and soft tissues.Under CT fluoroscopic guidance, a 19-gauge coaxial needle was inserted viaan intercostal approach into the right lobe of the liver. Acontrast-enhanced CT was then performed, which revealed a low-attenuation1.4 cm mass in the right lobe of the liver. Under CT fluoroscopicguidance, the needle was advanced into the mass. Through the needle,multiple 25-gauge fine-needle aspirate biopsies were obtained. Pathologyreviewed the samples and requested core needle biopsy. Next, [id number] core needle biopsies of the mass were performed. The coaxialneedle was then removed, and immediate postprocedure CT revealed noapparent complication. A dressing was applied. IMPRESSION 1. Technically successful CT-guided liver mass biopsy. Augustina Colin MD PhD IMG IR ORDERABLES documented in this encounter Visit Diagnoses Diagnosis Metastatic breast cancer- Primary Lipoma of back- Primary Lipoma of other specified sites Metastatic breast cancer Osteopenia of necks of both femurs Other specified diseases of liver documented in this encounter Care Teams Head Shipper Relationship Specialty Start Date End Date Linda Blancas MD [facility] [address] [place] [address] PCP - General 01/06/11 Adolfo Carreno MD [address] [place] [phone] General Surgery 04/26/19 Augustina Colin MD PhD [address] [place] [phone] Medical Oncology 04/26/19 documented as of this encounter
--- OUTSIDE RECORDS SUMMARY | 2024-03-20 14:50 | XMS_ITS | Encounter Summary ---
Author Organization [facility] Address [address] [place] [address] Care Team Providers Care Prosthetics Lab Technician Name Role Phone Linda Blancas MD Primary Care Provider [phone] Adolfo Carreno MD Unavailable [phone] Augustina Colin MD PhD Unavailable Unavailable Reason for Visit * Reason Onset Date Comments Appointment Related 12/02/2021 Encounter Details Date Type Department Care Team (Late st Contact Info) Description 12/02/2021 Telephone [facility] Interventional Radiology - [address] [address] Johnson Kwon MD 111 [facility] Level 1 [place] [phone] Appointment Related Social History Tobacco Use Types Packs/Day Years Used Date Smoking Tobacco: Never Smokeless Tobacco: Never Alcohol Use Standard Drinks/Week Comments Yes 1 (1 standard drink = 0.6 oz [...] encounter Miscellaneous Notes * Telephone Encounter - Susanne Cedeno - 12/02/2021 1142 EDT Spoke with Sendy in regards to scheduling their outpatient US guided liver biopsy with interventional radiology at [facility]. Patient will be coming in on December 16 @ 9:00am, checking in at 8:45am The following details were reviewed with patient to ensure procedure completed on scheduled date: -Patient understands that they will need a shuttle bus driver for this procedure. -Patient understands that they should plan to be here for 4-6 hours that day in total for prep, procedure and recovery. Pre procedure instructions: Covid 19 Policy: It is required that you be tested for Covid- 19 prior to your procedure. Your procedure will not bedone if you opt not to be tested. (Testing is required for all IV sedation and General anesthesia cases regardless of your vaccine status per [facility] guidelines) Prior to the procedure and the Covid test, you must not have travelled in the past 7-14 days. (Please call our nursing line NOÉ to make sure we can set up your procedure and Covid testing per guidelines if you have upcomming travel planned) The [facility] will reach out directly to schedule this.The test is required 3 days priorto date of your procedure. Contact information for [phone]. Discussed with patient the following COVID19 restrictions between covid testing and procedure: -no longer need to quarantine -do not need to stay home from work or keep kids home from school -in addition, per [employer], following restrictions remain: *mask at all times in public *do not eat indoors at restaurants or go into bars *avoid large gatherings *maintain distance from unmasked people - *avoid contact with anyone COVID-19 positive / exhibiting respiratory illness symptoms Medication instruction: - RN to contact with [...] before the check in time (starting at 7:00) After 7:00 AM, nothing by mouth. Please [...] questions. I have sent patient confirmation via [employer]. I have notified referring office of this patients scheduled date and time. Any further questions can be addressed to Interventional Radiology Department [phone] Ext. 1 Patient verbalized understanding and agrees with Plan of Care. No cognitive barriers were identified during this conversation & they have our contact number to call with questions. Susanne Cedeno documented in this encounter Plan of Treatment Upcoming Encounters Date Type Department Care Team (Late st Contact Info) Description 04/02/2024 10:30 EDT Appointment [facility] Interventional Radiology Unit [address] [place] [address] 04/02/2024 15:15 EDT Office Visit [facility] Surgical Oncology - [address] [address] Adolfo Carreno MD [address] [place] [address] 2 [place] [phone] 04/05/2024 9:30 EDT Telemedicine [facility] Palliative Care Services [address] [place] [address] 799161 Chichi Woods MD [address] [place] [phone] 04/11/2024 15:00 EDT Telemedicine [facility] Hematology & Oncology - [address] 225851 Alisson Carreon MD [address] [place] [address] 2 [place] [phone] 04/13/2024 13:30 EDT Appointment [facility] Hematology & Oncology - [address] 800281 04/13/2024 14:00 EDT Appointment [facility] Hematology & Oncology - [address] 970591 04/16/2024 10:00 EST Telemedicine [facility] - [facility] Palliative Care Services [address] [place] [address] 168111 Chichi Woods MD [address] [place] [address] [phone] 04/24/2024 9:00 EST Appointment [facility] Radiology CT Outpatient - [address] 740331 04/24/2024 11:00 EST Appointment [facility] Breast Imaging - [address] 679391 04/27/2024 12:00 EST Appointment [facility] Hematology & Oncology - [address] 149091 05/02/2024 15:00 EST Telemedicine [facility] Hematology & Oncology [address] [address] Alisson Carreon MD [address] [place] [address] 2 [place] [phone] 05/04/2024 10:15 EST Ancillary Procedure [facility] Cardiology - [address] [place], [place] [phone] 05/04/2024 11:30 EST Appointment [facility] Hematology & Oncology [address] [address] 05/04/2024 12:00 EST Appointment [facility] Hematology & Oncology [address] 404791 06/12/2024 13:00 EST Appointment [facility] Radiology CT - [address] 143661 documented as of this encounter Visit Diagnoses Not on filedocumented in this encounter Care Teams Prosthetics Lab Technician Relationship Specialty Start Date End Date Linda Blancas MD [address] [place] [address] 30 [place] [address] PCP - General 01/06/11 Adolfo Carreno MD [address] [place] [phone] General Surgery 04/26/19 Augustina Colin MD PhD [address] [place] [address] 2 [place] [phone] Medical Oncology 04/26/19 documented as of this encounter
--- OUTSIDE RECORDS SUMMARY | 2024-03-20 14:50 | XMS_ITS | Encounter Summary ---
Author Organization [facility] Address [address] [place] [address] Care Team Providers Care Senior Qualitative Researcher Name Role Phone Linda Blancas MD Primary Care Provider [phone] Adolfo Carreno MD Unavailable [phone] Augustina Colin MD PhD Unavailable Unavailable Reason for Visit * Reason Onset Date Comments Labs Only 12/02/2021 Medication Management 12/02/2021 Encounter Details Date Type Department Care Team (Late st Contact Info) Description 12/02/2021 Telephone [facility] Hematology & Oncology - [facility] [address] [place] [address] Augustina Colin MD PhD Labs Only; Medication Management Social History Tobacco Use Types [...] Miscellaneous Notes * Telephone Encounter - Garima Boyec RN - 12/02/[address] Colin note 11/26/21 Zoledronic acid q 3mo, next due December 2021. PA submitted * Telephone Encounter - Hetal Avila - 12/02/2021 1150 EDT Patient is calling to speak to Quita regarding labs and her new medication. Please call back todiscuss. documented in this encounter Plan of Treatment Upcoming Encounters Date Type Department Care Team (Late st Contact Info) Description 04/02/2024 10:30 EDT Appointment [facility] Interventional Radiology Unit [address] [place], [place] [phone] 04/02/2024 15:15 EDT Office Visit [facility] Surgical Oncology - [facility] [address] [place], [place] [phone] Adolfo Carreno MD 111 [facility], Level 2 [place] [phone] 04/05/2024 9:30 EDT Telemedicine [facility] - [facility] Palliative Care Services [address] [place], [place] [phone] Chichi Woods MD 111 [facility], [address] [phone] 04/11/2024 15:00 EDT Telemedicine [facility] Hematology & Oncology - [address] 036301 Alisson Carreon MD [address] [place] [address], [facility] 2 [place] [phone] 04/13/2024 13:30 EDT Appointment [facility] Hematology & Oncology - [address] 938891 04/13/2024 14:00 EDT Appointment [facility] Hematology & Oncology - [address] 425671 04/16/2024 10:00 EST Telemedicine [facility] - [facility] Palliative Care Services [address] [place] [address] 469231 Chichi Woods MD [address] [place] [phone] 04/24/2024 9:00 EST Appointment [facility] Radiology CT Outpatient - [address] 558031 04/24/2024 11:00 EST Appointment [facility] Breast Imaging - [facility] S [address] 306871 04/27/2024 12:00 EST Appointment [facility] Hematology & Oncology - [address] [phone] 05/02/2024 15:00 EST Telemedicine [facility] Hematology & Oncology - [address] [phone] Alisson Carreon MD [address] [place] [address], [facility] 2 [place] [phone] 05/04/2024 10:15 EST Ancillary Procedure [facility] Cardiology - [place] [address] 05/04/2024 11:30 EST Appointment [facility] Hematology & Oncology [address] [address] 05/04/2024 12:00 EST Appointment [facility] Hematology & Oncology [address] [address] 06/12/2024 13:00 EST Appointment [facility] Radiology CT - [address] 447711 documented as of this encounter Visit Diagnoses Diagnosis Metastatic breast cancer- Primary Osteopenia of necks of both femurs documented in this encounter Care Teams Senior Qualitative Researcher Relationship Specialty Start Date End Date Linda Blancas MD [facility] [address] [place], [place] 200702 PCP - General 01/06/11 Adolfo Carreno MD [address] [place] [phone] General Surgery 04/26/19 Augustina Colin MD PhD [address] [place] [phone] Medical Oncology 04/26/19 documented as of this encounter
--- OUTSIDE RECORDS SUMMARY | 2024-03-20 14:50 | XMS_ITS | Encounter Summary ---
Author Organization [facility] Address [address] [place] [address] Care Team Providers Care Offal Trimmer Name Role Phone Linda Blancas MD Primary Care Provider Adolfo Carreno MD Unavailable [phone] Augustina Colin MD PhD Unavailable Unavailable Reason for Visit * Reason Onset Date Comments Medication Management 12/03/2021 [facility] ne Labs Only 12/03/2021 Encounter Details Date Type Department Care Team (Late st Contact Info) Description 12/03/2021 Telephone [facility] Hematology & Oncology - [facility] [address] [place] [address] Augustina Colin MD PhD Medication Management (Capecitabine ); Labs Only Social History Tobacco Use Types [...] Telephone Encounter - Garima Boyce RN - 12/03/2021 1618 EDT Call returned to patient regarding medication and lab questions. 12/01 first dose of capecitabine per patient and she is feeling good. Clarified with patient labs are to be drawn at the start of each new cycle of medication. Numerous questions answered. * Telephone Encounter - Ronaldo Gutierrez - 12/03/2021 1535 EDT Patient would like to review her medication questions as it pertains to lab orders and would like to discuss with the nurse when available. * Telephone Encounter - Sima Bear - 12/03/2021 1032 EDT Patient requesting call back to discuss medication and lab scheduling documented in this encounter Plan of Treatment Upcoming Encounters Date Type Department Care Team (Late st Contact Info) Description 04/02/2024 10:30 EDT Appointment [facility] Interventional Radiology Unit [address] [place], [place] 313881 04/02/2024 15:15 EDT Office Visit [facility] Surgical Oncology - [facility] [address] [place], [place] 001511 Adolfo Carreno MD 111 [facility], Level 2 [place] [phone] 04/05/2024 9:30 EDT Telemedicine [facility] Palliative Care Services [address] [place] [address] [phone] Chichi Woods MD [address] [place] [phone] 04/11/2024 15:00 EDT Telemedicine [facility] Hematology & Oncology - [address] 720031 Alisson Carreon MD [address] [place] [address] 2 [place] [phone] 04/13/2024 13:30 EDT Appointment [facility] Hematology & Oncology - [address] 475341 04/13/2024 14:00 EDT Appointment [facility] Hematology & Oncology [address] 167931 04/16/2024 10:00 EST Telemedicine [facility] Palliative Care Services [address] [place] [address] [phone] Chichi Woods MD [address] [place] [phone] 04/24/2024 9:00 EST Appointment [facility] Radiology CT Outpatient - [address] 606371 04/24/2024 11:00 EST Appointment [facility] Breast Imaging - [address] 376381 04/27/2024 12:00 EST Appointment [facility] Hematology & Oncology - [address] 619331 05/02/2024 15:00 EST Telemedicine [facility] Hematology & Oncology [address] 311281 Alisson Carreon MD [address] [place] [phone] 05/04/2024 10:15 EST Ancillary Procedure [facility] Cardiology - [address] [place] [address] 05/04/2024 11:30 EST Appointment [facility] Hematology & Oncology [address] 983911 05/04/2024 12:00 EST Appointment [facility] Hematology & Oncology [address] 616901 06/12/2024 13:00 EST Appointment [facility] Radiology CT - [address] 885171 documented as of this encounter Visit Diagnoses Not on filedocumented in this encounter Care Teams Offal Trimmer Relationship Specialty Start Date End Date Linda Blancas MD [address] [place] [address] PCP - General 01/06/11 Adolfo Carreno MD [address] [place] [phone] General Surgery 04/26/19 Augustina Colin MD PhD [address] [place] [phone] Medical Oncology 04/26/19 documented as of this encounter
--- OUTSIDE RECORDS SUMMARY | 2024-03-20 14:50 | XMS_ITS | Encounter Summary ---
Author Organization [facility] Address [address] [place] [address] Care Team Providers Care Fine Grader Name Role Phone Linda Blancas MD Primary Care Provider [phone] Adolfo Carreno MD Unavailable [phone] Augustina Colin MD PhD Unavailable Unavailable Reason for Visit * Reason Onset Date Comments Follow-up 12/07/2021 Encounter Details Date Type Department Care Team (Late st Contact Info) Description 12/07/2021 Telephone [facility] Cancer Center Hematology & Oncology - [place] [address] [place], [place] [phone] Garima Boyce, SHELLEY Follow-up Social History Tobacco Use Types [...] Telephone Encounter - Garima Boyce RN - 12/07/2021 1516 EDT Patient reports feeling overall well. Started medication 12/01/21 as planned. Currently has cold symptoms including nasal drainage, SIN, sore throat. COVID antigen test negative. Patient aware to call if new or worsening symptoms. documented in this encounter Plan of Treatment Upcoming Encounters Date Type Department Care Team (Late st Contact Info) Description 04/02/2024 10:30 EDT Appointment [facility] Interventional Radiology Unit [address] [place] [address] [phone] 04/02/2024 15:15 EDT Office Visit [facility] Surgical Oncology - [address] [phone] Adolfo Carreno MD [address] [place] [address], [facility] 2 [place] [phone] 04/05/2024 9:30 EDT Telemedicine [facility] - [facility] Palliative Care Services [address] [place], [place] 658561 Chichi Woods MD [address] [place] [address], [address] [phone] 04/11/2024 15:00 EDT Telemedicine [facility] Hematology & Oncology - [address] [phone] Alisson Carreon MD [address] [place] [address], Level 2 [place] [phone] 04/13/2024 13:30 EDT Appointment [facility] Hematology & Oncology [address] 650461 04/13/2024 14:00 EDT Appointment [facility] Hematology & Oncology - [address] 160281 04/16/2024 10:00 EST Telemedicine [facility] - [facility] Palliative Care Services [address] [place] [address] [phone] Chichi Woods MD [address] [place] [address], [address] [phone] 04/24/2024 9:00 EST Appointment [facility] Radiology CT Outpatient - [address] 987911 04/24/2024 11:00 EST Appointment [facility] Breast Imaging - [facility] S [address] 053021 04/27/2024 12:00 EST Appointment [facility] Hematology & Oncology [address] 039041 05/02/2024 15:00 EST Telemedicine [facility] Hematology & Oncology - [address] 034441 Alisson Carreon MD [address] [place] [address], Level 2 [place] [phone] 05/04/2024 10:15 EST Ancillary Procedure [facility] Cardiology - [address] [place], [place] [phone] 05/04/2024 11:30 EST Appointment [facility] Hematology & Oncology - [address] [address] 05/04/2024 12:00 EST Appointment [facility] Cancer Center Hematology & Oncology - [address] [address] 06/12/2024 13:00 EST [facility]ointment [facility] Rad[facility] - [address] [address] documented as of this encounter Visit Diagnoses Not on filedocumented in this encounter Care Teams Fine Grader Relationship Specialty Start Date End Date Linda Blancas MD [facility] [address] [place] [address] PCP - General 01/06/11 Adolfo Carreno MD [address] [place] [address], [facility] 2 [place] [phone] General Surgery 04/26/19 Augustina Colin MD PhD [address] [place] [address], [facility] 2 [place] [phone] Medical Oncology 04/26/19 documented as of this encounter
--- OUTSIDE RECORDS SUMMARY | 2024-03-20 14:50 | XMS_ITS | Encounter Summary ---
Author Organization [facility] Address [address] [place] [address] Care Team Providers Care Brand Protection Manager Name Role Phone Linda Blancas MD Primary Care Provider [phone] Adolfo Carreno MD Unavailable [phone] Augustina Colin MD PhD Unavailable Unavailable Encounter Details Date Type Department Care Team (Late st Contact Info) Description 11/30/[address] [facility] Cancer Center Hematology & Oncology - [facility] [address] [place] [address] Garima Boyce, SHELLEY Social History Tobacco Use [...] hours as needed for Nausea. 30 Tablet 2 11/30/2021 01/13/2022 documented in this encounter Progress Notes * Garima Boyce, RN - 11/30/2021 1232 EDT Zofran sent to [facility] at patient request. documented in this encounter Plan of Treatment Upcoming Encounters Date Type Department Care Team (Late st Contact Info) Description 04/02/2024 10:30 EDT Appointment [facility] Interventional Radiology Unit [address] [place] [address] [phone] 04/02/2024 15:15 EDT Office Visit [facility] Surgical Oncology - [address] [phone] Adolfo Carreno MD [address] [place] [address], [facility] 2 [place] [phone] 04/05/2024 9:30 EDT Telemedicine [facility] - [facility] Palliative Care Services [address] [place], [place] 300341 Chichi Woods MD [address] [place] [phone] 04/11/2024 15:00 EDT Telemedicine [facility] Hematology & Oncology - [address] 225911 Alisson Carreon MD [address] [place] [address], Level 2 [place] [phone] 04/13/2024 13:30 EDT Appointment [facility] Hematology & Oncology [address] 071631 04/13/2024 14:00 EDT Appointment [facility] Hematology & Oncology - [address] 492601 04/16/2024 10:00 EST Telemedicine [facility] - [facility] Palliative Care Services [address] [place] [address] [phone] Chichi Woods MD [address] [place] [address], [address] [phone] 04/24/2024 9:00 EST Appointment [facility] Radiology CT Outpatient - [address] [id number] 04/24/2024 11:00 EST Appointment [facility] Breast Imaging - [place] S [address] [phone] 04/27/2024 12:00 EST Appointment [facility] Hematology & Oncology [address] 507171 05/02/2024 15:00 EST Telemedicine [facility] Hematology & Oncology - [address] 312971 Alisson Carreon MD [address] [place] [address], Level [address] [place] [phone] 05/04/2024 10:15 EST Ancillary Procedure [facility] Cardiology - [address] [place], [place] [phone] 05/04/2024 11:30 EST Appointment [facility] Hematology & Oncology - [address] [address] 05/04/2024 12:[address] [facility] Cancer Center Hematology & Oncology - [address] [address] 06/12/2024 13:00 EST [facility]ointment [facility] Radiology [facility] - [address] [address] documented as of this encounter Visit Diagnoses Not on filedocumented in this encounter Care Teams Brand Protection Manager Relationship Specialty Start Date End Date Linda Blancas MD [facility] [address] [place] [address] PCP - General 01/06/11 Adolfo Carreno MD [address] [place] [address], [facility] 2 [place] [phone] General Surgery 04/26/19 Augustina Colin MD PhD [address] [place] [address], [facility] 2 [place] [address] Medical Oncology 04/26/19 documented as of this encounter
--- OUTSIDE RECORDS SUMMARY | 2024-03-20 14:50 | XMS_ITS | Encounter Summary ---
Author Organization [facility] Address [address] [place] [address] Care Team Providers Care Benefits Consultant Name Role Phone Linda Blancas MD Primary Care Provider [phone] Adolfo Carreno MD Unavailable [phone] Augustina Colin MD PhD Unavailable Unavailable Reason for Visit * Reason Onset Date Comments COVID-19 12/03/2021 Encounter Details Date Type Department Care Team (Late st Contact Info) Description 12/03/2021 Telephone [facility] - [facility] [address] [place] [address] Mustapha Nguyen MD 111 [facility] [address] [place] [phone] COVID-19 Social History Tobacco Use [...] encounter Miscellaneous Notes * Telephone Encounter - Alana Evangelista - 12/05/2021 1227 EDT Patient advised she would like testing done at [facility]. * Telephone Encounter - Nilson Porter - 12/03/2021 1527 EDT Patient called to set up covid test prior to procedure on 12/16 but shes lives near [place]. Due to [place] covid testing not being open on the weekends or December 14 patient was wondering if she can gettested on 12/11 instead so she doesn't have to drive 2 hours to get it done at [facility]. documented in this encounter Plan of Treatment Upcoming Encounters Date Type Department Care Team (Late st Contact Info) Description 04/02/2024 10:30 EDT Appointment [facility] Interventional Radiology Unit [address] [place], [place] 828291 04/02/2024 15:15 EDT Office Visit [facility] Surgical Oncology - [place] [address] [place], [place] [phone] Adolfo Carreno MD 111 [facility], Level [address] [place] [phone] 04/05/2024 9:30 EDT Telemedicine [facility] Palliative Care Services [address] [place] [address] [phone] Chichi Woods MD [address] [place] [phone] 04/11/2024 15:00 EDT Telemedicine [facility] Hematology & Oncology [address] 143011 Alisson Carreon MD [address] [place] [address], Level [address] [place] [phone] 04/13/2024 13:30 EDT Appointment [facility] Hematology & Oncology [address] [address] 04/13/2024 14:00 EDT Appointment [facility] Hematology & Oncology [address] [phone] 04/16/2024 10:00 EST Telemedicine [facility] Palliative Care Services [address] [place] [address] [phone] Chichi Woods MD [address] [place] [phone] 04/24/2024 9:00 EST Appointment [facility] Radiology CT Outpatient - [address] [phone] 04/24/2024 11:00 EST Appointment [facility] Breast Imaging - [address] [phone] 04/27/2024 12:00 EST Appointment [facility] Hematology & Oncology - [address] [phone] 05/02/2024 15:00 EST Telemedicine [facility] Hematology & Oncology - [address] [address] Alisson Carreon MD [address] [place] [address] 2 [place] [phone] 05/04/2024 10:15 EST Ancillary Procedure [facility] Cardiology - [place] [address] [place], [place] [phone] 05/04/2024 11:30 EST Appointment [facility] Hematology & Oncology [address] [phone] 05/04/2024 12:00 EST Appointment [facility] Hematology & Oncology [address] [phone] 06/12/2024 13:00 EST Appointment [facility] Radiology CT - [address] [phone] documented as of this encounter Visit Diagnoses Not on filedocumented in this encounter Care Teams Benefits Consultant Relationship Specialty Start Date End Date Linda Blancas MD [facility] [address] [place] [address] PCP - General 01/06/11 Adolfo Carreno MD [address] [place] [phone] General Surgery 04/26/19 Augustina Colin MD PhD [address] [place] [phone] Medical Oncology 04/26/19 documented as of this encounter
--- OUTSIDE RECORDS SUMMARY | 2024-03-20 14:50 | XMS_ITS | Encounter Summary ---
Author Organization [facility] Address [address] [place] [address] Care Team Providers Care Grain Operator Name Role Phone Linda Blancas MD Primary Care Provider [phone] Adolfo Carreno MD Unavailable [phone] Augustina Colin MD PhD Unavailable Unavailable Reason for Visit * Reason Onset Date Comments Orders (Non Pre-visit) 01/05/2022 Encounter Details Date Type Department Care Team (Late st Contact Info) Description 01/05/2022 Orders Only [facility] Hematology & Oncology - [place] [address] [place] [address] Garima Boyce, [place] Social History Tobacco Use [...] week off. 84 Tablet 3 01/05/2022 03/31/2022 documented in this encounter Progress Notes * Garima Boyce RN - 01/05/2022 1116 EDT Scripts updated to reflect changed noted Capecitabine 1500mg am and 1500mg pm 1week on 1 week off. documented in this encounter Plan of Treatment Upcoming Encounters Date Type Department Care Team (Late st Contact Info) Description 04/02/2024 10:30 EDT Appointment [facility] Interventional Radiology Unit [address] [place] [address] [phone] 04/02/2024 15:15 EDT Office Visit [facility] Surgical Oncology - [address] [phone] Adolfo Carreno MD 111 [facility], Level 2 [place] [phone] 04/05/2024 9:30 EDT Telemedicine [facility] - [facility] Palliative Care Services [address] [place] [address] [phone] Chichi Woods MD [address] [facility], [address] [phone] 04/11/2024 15:00 EDT Telemedicine [facility] [place] Hematology & Oncology - [address] [phone] Alisson Carreon MD [address] [place] [address] 2 [place] [phone] 04/13/2024 13:30 EDT Appointment [facility] Hematology & Oncology - [address] [phone] 04/13/2024 14:00 EDT Appointment [facility] Hematology & Oncology - [address] 196771 04/16/2024 10:00 EST Telemedicine [facility] - [facility] Palliative Care Services [address] [place] [address] [phone] Chichi Woods MD [address] [place] [phone] 04/24/2024 9:00 EST Appointment [facility] Radiology CT Outpatient - [address] 320331 04/24/2024 11:00 EST Appointment [facility] Breast Imaging - [facility] [address] [phone] 04/27/2024 12:00 EST Appointment [facility] Hematology & Oncology - [address] [phone] 05/02/2024 15:00 EST Telemedicine [facility] Hematology & Oncology - [address] 488451 Alisson Carreon MD [address] [place] [address], [facility] 2 [place] [phone] 05/04/2024 10:15 EST Ancillary Procedure [facility] Cardiology - [address] [place], [place] [phone] 05/04/2024 11:30 EST Appointment [facility] [place] Hematology & Oncology [address] [address] 05/04/2024 12:00 EST Appointment [facility] Hematology & Oncology [address] [address] 06/12/2024 13:00 EST Appointment [facility] Radiology CT - [address] [address] documented as of this encounter Visit Diagnoses Not on filedocumented in this encounter Discontinued Medications Medication Sig Discontinue Reason Start Date End Da te capecitabine (XELODA) 500 mg tablet Take 3 Tablets by mouth 2 times daily. 12/01/2021 01/05/2022 capecitabine (XELODA) 500 mg tablet Take 3 Tablets by mouth 2 times daily. Take for 14 days, 7 days off for a cycle length of 21 days. 11/30/2021 01/05/2022 documented as of this encounter Care Teams Grain Operator Relationship Specialty Start Date End Date Linda Blancas MD [facility] [address] [place] [address] PCP - General 01/06/11 Adolfo Carreno MD [address] [place] [address] 2 [place] [phone] General Surgery 04/26/19 Augustina Colin MD PhD [address] [place] [address] 2 [place] [phone] Medical Oncology 04/26/19 documented as of this encounter
--- OUTSIDE RECORDS SUMMARY | 2024-03-20 14:50 | XMS_ITS | Encounter Summary ---
Author Organization [facility] Address [address] [place] [address] Care Team Providers Care Principal Technical Architect Name Role Phone Linda Blancas MD Primary Care Provider Adolfo Carreno MD Unavailable [phone] Augustina Colin MD PhD Unavailable Unavailable Reason for Visit * Prior Authorization (See Order Priority) - Closed Specialty Diagnoses / Procedures Referred By Contac t Referred To Contact Infusion Therapy Diagnoses Malignant neoplasm of right female breast, unspecified estrogen receptor status, unspecified site of breast ([facility]) Osteopenia of necks of both femurs Augustina Colin MD PhD [facility] [address] [place] [address] Referral ID Status Reason Start Date Expiration Date V isits Requested Visits Authorized [id number] Closed Specialty Services Required 08/20/2021 12/25/2021 1 1 Encounter Details Date Type Department Care Team (Latest Contact Info) Description 12/24/2021 7:38 EDT - 12/24/2021 23:59 EDT Hospital Encounter [facility] Ambulatory Infusion Center [address] [place] [address] Osteopenia of necks of both femurs (Primary [...] Sign Reading Time Taken Comments Blood Pressure 136/63 12/24/2021 1000 EDT Pulse - - Temperature 36 ??C (96.8 ??F) 12/24/2021 1000 EDT Respiratory Rate 18 12/24/2021 1000 EDT Oxygen Saturation 100% 12/24/2021 1000 EDT Inhaled Oxygen Concentration - - Weight [...] 3 Tablets by mouth 2 times daily. 84 Tablet 12/01/2021 01/05/2022 capecitabine (XELODA) 500 mg tablet Take 3 Tablets by mouth 2 times daily. Take for 14 days, 7 days off for a cycle length of 21 days. 84 Tablet 3 11/30/2021 01/05/2022 DOXYLAMINE SUCCINATE (UNISOM ORAL) Take by mouth as needed. Takes half a tablet 02/02/2011 01/13/2022 gabapentin (NEURONTIN) 100 mg capsule Take 2 Caps by mouth 2 times daily. 360 Cap 3 08/16/2012 12/14/2023 ibuprofen (MOTRIN) 200 mg tablet Take 2 Tablets by mouth as needed. 12/07/2023 mv-mn/C/glutamin/lysin/h [id number] (A[place]ORNE, ASCORBATE SODIUM, ORAL) Take by mouth as needed. 12/14/2023 omeprazole (PRILOSEC) 20 mg capsule Take 1 Capsule by mouth daily. 03/28/2023 ondansetron (ZOFRAN-ODT) 8 mg disintegrating tablet Take 1 Tablet by mouth every 8 hours as needed for Nausea. 30 Tablet 2 11/30/2021 01/13/2022 palbociclib 100 mg capsuleIndications:Metas tatic breast cancer Take 100 mg by mouth daily. Take 100 mg daily days 1-21 and then 7 days off. Total cycle length 28 days before restarting. 21 capsule 5 08/03/2021 05/27/2022 venlafaxine (EFFEXOR-XR) 150 mg XR capsule Take 1 Cap by mouth daily. 90 Cap 3 08/16/2012 12/14/2023 zolpidem (AMBIEN) 5 mg tablet Take 5 mg by mouth at bedtime as needed for Sleep. Reported on 11/01/2016 01/13/2022 documented as of this encounter Discharge Disposition Disposition Code Departure Means Destination Home or Self [facility] documented in this encounter Progress Notes * Nash Martinez, RN - 12/24/2021 1000 EDT Patient Sunshine Pleitez admitted to [facility] 4 infusion for Zometa related to M85.851, M85.852. Patient identification verified verbally and on patient armband. Peripheral IV placed. Premedications not ordered. 4mg Zometa Infusion initiated at 1010 Infusion completed at 1030 Pt tolerated infusion well without signs or symptoms of infusion reaction. Peripheral IV removed. Pt left [facility] infusion center via ambulation. Patient educated to call if complications or any concerns any time. Reminded of over the counter medications (ie benadryl and tylenol) to use at home for side effects of sensitivity/ allergic reaction and to call clinic and/or 911 for difficulty breathing and/or chest pain documented in this encounter Plan of Treatment Upcoming Encounters Date Type Department Care Team (Late st Contact Info) Description 04/02/2024 10:30 EDT Appointment [facility] Interventional Radiology Unit [address] [place] [address] [phone] 04/02/2024 15:15 EDT Office Visit [facility] Surgical Oncology - [address] [phone] Adolfo Carreno MD [address] [place] [address] [address] [place] [phone] 04/05/2024 9:30 EDT Telemedicine [facility] - [facility] Palliative Care Services [address] [place] [address] [phone] Chichi Woods MD [address] [place] [address], [address] [phone] 04/11/2024 15:00 EDT Telemedicine [facility] Hematology & Oncology [address] [phone] Alisson Carreon MD [address] [place] [address] [address] [place] [phone] 04/13/2024 13:30 EDT Appointment [facility] Hematology & Oncology [address] [phone] 04/13/2024 14:00 EDT Appointment [facility] Hematology & Oncology - [address] [phone] 04/16/2024 10:00 EST Telemedicine [facility] - [facility] Palliative Care Services [address] [place] [address] [phone] Chichi Woods MD [address] [facility], [address] [phone] 04/24/2024 9:00 EST Appointment [facility] Radiology CT Outpatient - [address] [phone] 04/24/2024 11:00 EST Appointment [facility] Breast Imaging - [address] [phone] 04/27/2024 12:00 EST Appointment [facility] Hematology & Oncology - [address] [phone] 05/02/2024 15:00 EST Telemedicine [facility] Hematology & Oncology - [address] [phone] Alisson Carreon MD [address] [place] [address], Level [address] [place] [phone] 05/04/2024 10:15 EST Ancillary Procedure [facility] Cardiology [place] [address] 05/04/2024 11:30 EST Appointment [facility] Hematology & Oncology - [address] [phone] 05/04/2024 12:00 EST Appointment [facility] Hematology & Oncology - [address] [phone] 06/12/2024 13:00 EST Appointment [facility] Center Radiology CT - [address] [address] documented as of this encounter Visit Diagnoses Diagnosis Osteopenia of necks of both femurs- Primary documented in this encounter Administered Medications Inactive Administered Medications - up to 3 most recent administrations Medication Order MAR Action Action Date Dose Rate Site zoledronic acid (ZOMETA) 4 mg/100 mL IVPB 4 mg 4 mg, intravenous, Administer over 20 Minutes, NOW X1, 1 dose, On Michelle 12/24/21 at 1000, Routine New Bag 12/24/2021 10:10 EDT 4 mg documented in this encounter Orders Medications Ordered That Vj ht Not Have Been Administered Count Last Ordered Date First Ordered Date alteplase (CATHFLO ACTIVASE) injection 2 mg 1 12/24/2021 diphenhydrAMINE (BENADRYL) injection 50 mg 1 12/24/2021 EPINEPHrine (ADRENALIN) injection 0.3 mg 1 12/24/2021 heparin (PF) lock flush 500 Units 1 022 methylPREDNISolone sod suc(P F) (SOLU-MEDROL) injection 40 mg 1 12/24/2021 sodium chloride 0.9 % (flush) flush 20 mL 1 12/24/2021 sodium chloride 0.9 % (NS) infusion 1 12/24 Nursing Count Last Ordered Date First Orde red Date INFORMED CONSENT 1 12/24/2021 documented in this encounter Care Teams Principal Technical Architect Relationship Specialty Start Date End Date Linda Blancas MD [facility] [address] [place] [address] PCP - General 01/06/11 Adolfo Carreno MD [address] [place] [phone] General Surgery 04/26/19 Augustina Colin MD PhD [address] [phone] Medical Oncology 04/26/19 documented as of this encounter
--- OUTSIDE RECORDS SUMMARY | 2024-03-20 14:50 | XMS_ITS | Encounter Summary ---
Author Organization [facility] Address [address] [place] [address] Care Team Providers Care Innersole Maker Name Role Phone Linda Blancas MD Primary Care Provider [phone] Adolfo Carreno MD Unavailable [phone] Augustina Colin MD PhD Unavailable Unavailable Reason for Referral * Radiology Services (Routine/Next Available) - Authorization Not Required Specialty Diagnoses / Procedures Referred By Contac t Referred To Contact Diagnoses Metastatic breast cancer Procedures IR BIOPSY Augustina Colin MD PhD [facility] Referral ID Status Reason Start Date Expiration Date Visits Requested Visits Authorized [id number] Authorization Not Required 11/26/2021 1 1 Reason for Visit * Radiology Services (Routine/Next Available) - Authorization Not Required Specialty Diagnoses / Procedures [facility] Referred To Contact Diagnoses Metastatic breast cancer Procedures IR BIOPSY Augustina Colin MD PhD [facility] Referral ID Status Reason Start Date Expiration Date Visits Requested Visits Authorized [id number] Authorization Not Required 11/26/2021 1 1 Encounter Details Date Type Department Care Team (Late st Contact Info) Description 12/16/2021 8:37 EDT - 12/16/2021 23:59 EDT Hospital Encounter [facility] Interventional Radiology Unit [address], [place] [address] Mustapha Nguyen MD [address] [facility] [place], [facility] [address] [place] [address] Metastatic breast cancer (HCC-CMS) (HCC) (HCC-CMS); Other specified diseases of liver Discharge Disposition: Home or Self Care Social [...] Sign Reading Time Taken Comments Blood Pressure 98/81 12/16/2021 1300 EDT Pulse - - Temperature 36.8 ??C (98.2 ??F) 12/16/2021 1300 EDT Respiratory Rate 16 12/16/2021 1300 EDT Oxygen Saturation 100% 12/16/2021 1300 EDT Inhaled Oxygen Concentration - - Weight 60.3 kg (133 lb) 12/16/2021 0900 EDT Height 154.9 cm (5' 1) 12/16/2021 0900 EDT Body Mass Index 25.13 12/16/2021 0900 EDT documented in this encounter [...] * Discharge Instructions* Aisha Goodson RN - 12/16/2021 9:44 EDT Interventional Radiology Biopsy Discharge Instructions Date of biopsy: 12/16/2021 Provider: Mustapha Nguyen MD Biopsy site: Liver The results of your procedure will go to the provider who ordered the procedure. It may take 5-7 days for biopsy results to come back. Aftercare After sedation: If you have received sedation or pain medication during your procedure, DO NOT DRIVE or make legal decisions today. Activity: Rest today. Do not lift anything over 10 lbs. You may resume normal activity tomorrow. Diet: You may resume your usual diet. Avoid alcohol for 24 hours. Medications: You may resume your usual medications. You may take tylenol (acetaminophen) for any discomfort you may have. Do not take any blood thinning medication for 24 hours after your procedure. (examples: Asprin, ibuprofen/NSAIDS, fish oil, Lovenox, Plavix, Xarelto, Arixtra, Pradaxa, Warfarin,etc). Liver biopsy patients - It is NOT uncommon to experience right shoulder pain for 1-2 days. ?? Call your doctor immediately or go to the nearest Emergency Room if you develop any of the following - Fast heart rate Severe back, stomach, chest, or shoulder pain Severe anxiety, dizziness, or sweating Skin color change Heavy bleeding or swelling at the biopsy site If you feel short of breath Bloody urine Decreased urine output ?? Check the dressing or Band-Aid throughout the day. If you notice bleeding, hold pressure for 10 minutes and slowly release the pressure to see if the bleeding has stopped. If the bleeding does notstop, go to your Physician or the nearest Emergency Room. ?? Remove your dressing tomorrow. Gently wash your wound site with soap and water. You may then leave the biopsy site open to air. ?? Do not take a tub bath, swim, or go in a hot tub until the wound site has completely healed. ?? IF YOU HAVE ANY QUESTIONS OR CONCERNS OR IF YOU HAVE DEVELOPED ANY OF THE SYMPTOMS ABOVE, PLEASECALL THE INTERVENTIONAL RADIOLOGY CLINIC AT [phone], OPTION 2 TO REACH THE NURSE TRIAGE [...] Tablets by mouth as needed. 12/07/2023 mv-mn/C/glutamin/lysin/h [id number] (AIRBORNE, ASCORBATE SODIUM, ORAL) Take by mouth [...] documented in this encounter Progress Notes * Keith Rodriguez, SHELLEY - 12/16/2021 0900 EDT Have you had any of the following symptoms? Fever YES/NO: No Cough/Chest congestion/Difficulty breathing YES/NO: No Sore throat or loss of taste / smell?YES/NO: No Chills YES/NO: No Joint Pain or weakness YES/NO: No Vomiting, abdominal pain, diarrhea (more common in children) YES/NO: No Severe headache YES/NO: No New loss of taste or smell YES/NO: No Have you had known exposure or close contact with someone who has been diagnosed with Covid 19? (close contact, unmasked, within 6 feet of any person known to have Coronavirus in the past 14 days) YES/NO: No Were you Covid tested? YES/NO: No When / Results: VACCINATION STATUS: yes See admission vital signs assessment for temperature. * Aisha Goodson RN - 12/16/2021 0900 EDT Labs, Medication, allergies, Pt history reviewed. Pt greeted in CVU ID'd by name, and viewed name Bracelet. Pt in room time - 1007 . Assessed IV. As the nurse in the room I reviewed the procedure and sedation with Sendy. Pt acknowledges her questions have been answered and verbalizes understanding of procedure, conscious sedation. . Consent for the procedure and sedation reviewed. Pt positioned supine on a stretcher in angio 22 VS assessed. Administration of conscious sedation began at 1015 . Sterile prep of lower on quarter of right anterior lateral chest and anterior lateral right abdomenwith duraprep by AMT in the usual sterile fashion and in compliance with summer law clerk recommendation. Caba moment at start of procedure liver biopsy At 1025 between CSM, AMT, RUTH, BJB . At start of the procedure the patient is awake Ultrasound guided placement of biopsy needle by CSM using local anesthesia, FNA and core samples obtained and handed to Fredy cytopathology present in angio 22 Defer to Physicians note for procedure outcomes Medications administered during the procedure, in divided doses, Versed 4 Mg Fentanyl 125 Mcg IV. Pt tolerated procedure well, Report called to Wanda ROSA CVU, transported back to CVU on stretcher. Discharge instructions entered in [facility] * Sarah Ballesteros RN - 12/16/2021 0900 EDT Sunshine Pleitez arrived to CVU #1 at 1117 via stretcher s/p liver biopsy. Alert and orientedx3. 1300 Patient OOB, no complaints of pain, nausea, lightheadedness or dizziness. 1338 Patient discharged to home via with documented in this encounter H&P Notes * Gamaliel Phan PA-C - 12/16/2021 0900 EDT The preoperative history and physical which was performed within 30 days of this procedure has beenreviewed and the clinically appropriate elements of the physical examination have been repeated. There are no changes to the documented history and physical or if so such changes are documented below Mrs Pleitez presented to IR for a liver biopsy with sedation. Gamaliel Phan PA-C 12/16/2021 9:51 Source Note - Augustina Colin MD PhD - 11/26/2021 11:30 EDT REASON FOR OFFICE VISIT: ??Discussion of side effects related to anti estrogen therapy and scan results ? PROBLEM LIST: 1. 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 a. ??Ultrasound performed in [place]??identifying an irregular heterogeneous soft tissue mass measuring 1.2 x 1.2 x 1.5 cm. ?? 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 ??HER-2 1+ by IHC. ??ANNE MARIE revealed [...] breast tumor 07/07/17 and placement of tissue plasterer apprentice. ??1.9 cm tumor at time of surgery, [...] ??Ms Morales presents to clinic to discuss side effects related to faslodex and scan results. She is aware that the MR and bone scan suggested progression of cancer. She has discomfort and masses in her buttocks at sites of injection. She is willing to start Capecitabine and get a biopsy. ROS: A 10 point review of systems was obtained. Other than described in the subjective she has no concerns or issues. Medications Prior to Today's Visit Medication Sig ??? calcium-vitamin D (OS-CHAR D) 500 mg(1,250mg) -200 unit per tablet Take 1 Tab by mouth 2 times daily with breakfast and dinner. ??? DOXYLAMINE SUCCINATE (UNISOM ORAL) Take by [...] FORMULA ORAL) Take by mouth daily. ??? mv-mn/C/glutamin/lysin/zshk822 (AIRBORNE, ASCORBATE SODIUM, ORAL) Take by mouth [...] as needed for Sleep. Reported on 11/01/2016 (Patient not taking: Reported on 06/11/2021) No facility-administered medications prior to visit. Social History Tobacco Use ??? Smoking status: Never Smoker ??? Smokeless tobacco: Never Used Substance Use Topics ??? Alcohol use: Yes Alcohol/week: 1.0 - 3.0 standard drink Types: 1 - 3 Glasses of wine per week Presents the clinic with her partner. She continues to be active. Objective: There were no vitals taken for this visit. Estimated body mass index is 26.16 kg/m?? as calculated from the following: Height as of 05/14/21: 155.2 cm (61.1). Weight as of 10/29/21: 63 kg (138 lb 14.4 oz). ECOG Performance Status: 0 General: Comfortable, cooperative and in no apparent distress NEURO: Alert and oriented x 3; Grossly neurologically intact DIAGNOSTIC DATA No visits with results within 1 Day(s) from this visit. Latest known visit with results is: Phlebotomy Only on 10/29/2021 Component Date Value Ref Range Status ??? Sodium 10/29/2021 142 136 - 145 mmol/L Final ??? Potassium 10/29/2021 4.1 3.5 - 5.0 mmol/L Final ??? Chloride 10/29/2021 105 96 - 110 mmol/L Final ??? CO2 Total 10/29/2021 27 22 - 32 mmol/L Final ??? Glucose 10/29/2021 103 (A) 70 - 100 mg/dL Final ??? BUN 10/29/2021 19 10 - 26 mg/dL Final ??? Creatinine 10/29/2021 1.01 0.52 - 1.04 mg/dL Final ? ? eGFR 10/29/2021 64 >60 mL/min/1.73m2 Final ??? Total Protein 10/29/2021 7.2 6.3 - 8.2 g/dL Final ??? Albumin 10/29/2021 4.5 3.4 - 4.9 g/dL Final ??? Alkaline Phosphatase 10/29/2021 66 38 - 126 U/L Final ??? AST 10/29/2021 34 15 - 46 U/L Final ? ? ALT 10/29/2021 18 <35 U/L Final ? ? Bilirubin, Total 10/29/2021 <0.5 <1.4 mg/dL Final ??? Calcium 10/29/2021 9.2 8.5 - 10.5 mg/dL Final ??? Magnesium 10/29/2021 1.9 1.7 - 2.8 mg/dL Final ??? Albumin/Globulin Ratio 10/29/2021 1.7 1.0 - 2.5 Final ??? Anion Gap 10/29/2021 10 5 - 14 Final ??? WBC 10/29/2021 3.89 (A) 4.00 - 12.40 K/cmm Final ??? RBC 10/29/2021 3.36 (A) 3.86 - 5.04 M/cmm Final ??? Hemoglobin 10/29/2021 12.5 11.6 - 15.2 gm/dL Final ??? HCT 10/29/2021 36.4 34.9 - 44.4 % Final ??? MCV 10/29/2021 108 (A) 81 - 98 fl Final ??? MCH 10/29/2021 37.2 (A) 26.7 - 33.3 pg Final ??? MCHC 10/29/2021 34.3 32.1 - 35.9 gm/dL Final ? ? RDW-CV 10/29/2021 13.2 <14.7 % Final ? ? RDW-SD 10/29/2021 52.3 (A) <50.4 fl Final ??? PLT 10/29/2021 229 141 - 377 K/cmm Final ??? MPV 10/29/2021 9.9 9.5 - 12.7 fl Final ??? Type of Differential: 10/29/2021 Manual Final ??? Neutrophils 10/29/2021 38.3 % Final ??? Lymphocytes 10/29/2021 55.7 % Final ??? Atypical Lymphocytes 10/29/2021 1.7 % Final ??? Monocytes 10/29/2021 1.7 % Final ??? Eosinophils 10/29/2021 2.6 % Final ??? Absolute Neutrophils 10/29/2021 1.49 (A) 2.20 - 8.85 K/cmm Final ??? Absolute Lymphocytes 10/29/2021 2.17 1.09 - 3.30 K/cmm Final ??? Absolute Atypical Lymphocytes 10/29/2021 0.07 K/cmm Final ??? Absolute Monocytes 10/29/2021 0.07 (A) 0.10 - 0.80 K/cmm Final ??? Absolute Eosinophils 10/29/2021 0.10 0.03 - 0.61 K/cmm Final ASSESSMENT: ??Ms Bernstein is a 61-year-old female with metastatic breast cancer.?? She had been currently receiving fluvesterant and palbociclb. The MR of the abdomen indicates progression of liver lesions and nuclear bone scan may suggest increase in liver lesions. We will arrange for IR guided biopsy and send for TEMPUS testing to assess for PI3K kinase mutation and the ability to use apelesib as well as other targetable changes. We discussed the side effects associated with capecitabine including diarrhea, plantar palmar dysarthresia, and mild count suppression. We explained that the medication is oral and we would monitor her CBC and liver function tests while she is receiving it. Baseline platelets should be >=100,000/mm3??and neutrophils should be >=1,500/mm3??prior to capecitabine initiation. We will plan for 1500mg am and 1500mg pm 2 weeks on 1 week off initially. If this is tolerated we would increase to 2000mg BID. If not tolerated we use the [facility] dosing of 1 week on 1 week off. Since she has progressive bone mets we will increae Zolendronic acid to every 3 mos for now. She takes a vitamin D supplement and we have encouraged weight bearing exercise. PLAN: 1. Discontinue faslodex and palbociclib 2. Capecitabine 1500mg am and 1500mg pm 2weeks on 1 week off. 3. Zoledronic acid q 3mo, next due December 2021 4. Arrange for IR guided biopsy of liver lesion; Send for Tempus testing 5. MR abdomen in approx 3 mos to assess response 6. FUR 1mo; CBCD CMP at that time. Patient is encouraged call with any intercurrent concerns or problems. documented in this encounter Procedure Notes * Mustapha Nguyen MD - 12/16/2021 0900 EDT IR Procedure Note Procedure: Ultrasound guided liver tumor biopsy Date Performed: 12/16/2021 Radiologist/Raw Material Planner(s): Patrick Sedation/Anesthesia: Moderate sedation and local lidocaine Time Out: A time-out was completed prior to procedure verifying correct patient, procedure, site, positioning, and special equipment if applicable. Estimated Blood Loss: Unless otherwise noted, there was no blood loss, specimens removed, cultures obtained, or drains retained. Specimens: Multiple 25 gauge fine needle aspiration and 20 gauge core needle biopsy samples Fluoroscopy Time: none Contrast Volume: none Complications: none Condition: stable Post Procedure Diagnosis: same Findings: Successful biopsy of difficult to visualize lesions under ultrasound. Recommendations: Per clinical team. If biopsy samples are non-diagnostic, then a repeat procedure using CT guidance could be considered. Mustapha Nguyen MD 12/16/2021 11:15 documented in this encounter Plan of Treatment Upcoming Encounters Date Type Department Care Team (Late st Contact Info) Description 04/02/2024 10:30 EDT Appointment [facility] Interventional Radiology Unit [address] [place] [address] [phone] 04/02/2024 15:15 EDT Office Visit [facility] Surgical Oncology - Main [place] [address], [place] [id number] Adolfo Carreno MD [address] [place] [address] [address] [place] [phone] 04/05/2024 9:30 EDT Telemedicine [facility] Palliative Care Services [address] [place] [address] [id number] Chichi Woods MD [address] [place] [phone] 04/11/2024 15:00 EDT Telemedicine [facility] Hematology & Oncology - [address] [phone] Alisson Carreon MD [address] [place] [address] [address] [place] [phone] 04/13/2024 13:30 EDT Appointment [facility] Hematology & Oncology - [address] [phone] 04/13/2024 14:00 EDT Appointment [facility] Hematology & Oncology - [address] [id number] 04/16/2024 10:00 EST Telemedicine [facility] Palliative Care Services [address] [place] [address] [id number] Chichi Woods MD [address] [place] [phone] 04/24/2024 9:00 EST Appointment [facility] Radiology CT Outpatient - [address] [phone] 04/24/2024 11:00 EST Appointment [facility] Breast Imaging - [address] [phone] 04/27/2024 12:00 EST Appointment [facility] Hematology & Oncology - [address] [phone] 05/02/2024 15:00 EST Telemedicine [facility] Hematology & Oncology - [address] [phone] Alisson Carreon MD [address] [place] [address], Level [address] [place] [phone] 05/04/2024 10:15 EST Ancillary Procedure [facility] Cardiology - [address] [place] [address] 05/04/2024 11:30 EST Appointment [facility] Hematology & Oncology [address] [phone] 05/04/2024 12:00 EST Appointment [facility] Hematology & Oncology - [address] [phone] 06/12/2024 13:00 EST Appointment [facility] Radiology CT - [address] [phone] documented as of this encounter Procedures Procedure Name Priority Date/Time Associated Diagnosis Comments IR BIOPSY Routine 12/16/2021 11:16 EDT Metastatic breast cancer (HCC-CMS) (HCC) (HCC-CMS) SURGICAL PATHOLOGY Routine 12/16/2021 11 :05 EDT NON BUILDING INSULATION INSTALLER/FNA CYTOLOGY Routine 12/16/2021 10:56 EDT PROTIME STAT 12/16/2021 9:22 EDT COMPLETE BLOOD COUNT AND DIFFERENTIAL STAT 12/16/2021 9:22 EDT Metastatic breast cancer (HCC-CMS) (HCC) (HCC-CMS) COMPREHENSIVE METABOLIC PANEL (CMP) STAT 12/16/2021 9:22 EDT Metastatic breast cancer (HCC-CMS) (HCC) (HCC-CMS) documented in this encounter Results * IR BIOPSY (12/16/2021 11:16 EDT) Anatomical Region Laterality Modality X-Ray Angiograph y 12/17/2021 15:0 2 EDT Impressions 12/17/2021 15:02 EDT Successful fine-needle aspiration and core needle biopsy of possible tumors within the liver, as denoted on ultrasound examination. If the biopsy results are inconclusive, a another attempt at a liver tumor biopsy utilizing CT guidance could be performed. Narrative 12/17/2021 15:02 EDT Ultrasound-guided fine-needle aspiration and core needle biopsy of multiple liver tumors 12/16/2021 at 1030 hours HISTORY: Breast carcinoma. Now with liver tumors identified on an MRI scan of the abdomen. Please biopsy liver tumor. Description: A time out was performed, [...] blood pressure, respiratory rate, and oxygen saturation. Preliminary ultrasound examination of the liver demonstrated no definite tumor visible by ultrasound. Utilizing sterile technique, local lidocaine anesthesia, and real-time ultrasound guidance, a 19-gauge guide needle was advanced into 2 separate regions of the liver which possibly represented tumor. Multiple 25-gauge fine- needle aspiration biopsy samples were obtained and submitted the cytopathologist. The pathologist recommended the core needle biopsies be performed. Therefore, multiple 20-gauge core needle biopsy samples of the second region of the liver were obtained and placed into formalin for histopathologic analysis. The needles were removed without difficulty. Post biopsy ultrasound imaging demonstrated no evidence of a hematoma or any other complication. Ultrasound images were recorded. The patient tolerated the procedure well. ??No complication occurred. ??The estimated blood loss during the procedure was zero. Procedure Note Mustapha Nguyen MD - 12/18/2021 Ultrasound-guided fine-needle aspiration and core needle biopsy ofmultiple liver tumors 12/16/2021 at 1030 hours HISTORY: Breast carcinoma. Now with liver tumors identified on an MRI scanof the abdomen. Please biopsy liver tumor. Description: A time out was performed, [...] rate, blood pressure, respiratory rate, and oxygensaturation. Preliminary ultrasound examination of the liver demonstrated no definitetumor visible by ultrasound. Utilizing sterile technique, local lidocaineanesthesia, and real- time ultrasound guidance, a 19-gauge guide needle wasadvanced into 2 separate regions of the liver which possibly representedtumor. Multiple 25-gauge fine-needle aspiration biopsy samples wereobtained and submitted the cytopathologist. The pathologist recommendedthe core needle biopsies be performed. Therefore, multiple 20-gauge coreneedle biopsy samples of the second region of the liver were obtained andplaced into formalin for histopathologic analysis. The needles wereremoved without difficulty. Post biopsy ultrasound imaging demonstrated noevidence of a hematoma or any other complication. Ultrasound images were recorded. The patient tolerated the procedure well. No complication occurred. Theestimated blood loss during the procedure was zero. IMPRESSION Successful fine-needle aspiration and core needle biopsy of possibletumors within the liver, as denoted on ultrasound examination. If thebiopsy results are inconclusive, a another attempt at a liver tumor biopsyutilizing CT guidance could be performed. Augustina Colin MD PhD IMG IR ORDERABLES * SURGICAL PATHOLOGY (12/16/2021 11:05 EDT) Note to Patient The following pathology results have been interpreted by your pathologist and may be available to you before your health provider has had the opportunity to review them. Please allow time for your provider to receive these results and explore management options, if applicable. 12/18/2021 9:29 EDT [facility] Final Diagnosis A. LIVER, NEEDLE CORE BIOPSY: - Liver tissue with no significant diagnostic abnormalities. - Negative for malignancy. - See comment. 12/18/2021 9:29 T [facility] Diagnosis Comment Please see the concurrent cytology FNA specimen ([id number]). 12/18/2021 9:29 [facility] Attestation There was significant resident/fellow involvement in the diagnostic evaluation of this case. By the signature below, the attending physician certifies that they have personally conducted a gross and/or microscopic examination of the described specimens and rendered or confirmed the above diagnosis. 12/18/2021 9:29 [facility] at 0929 Clinical History Breast cancer with liver metastases; biopsy of liver tumor 12/18/2021 9:29 [facility] Gross Description A. Received in formalin labelled with proper patient identification (initials all O, K) and liver are 3 moura-yellow tissue cores (1.9 cm to 0.6 cm in length, and each 0.1 cm in diameter). Entirely submitted in A1-A2. LAINE LORENZO 12/16/2021 13:16 12/18/2021 9:29 EDT [facility] Resident/Junior w: Kimberly Tong DO 12/18/2021 9:29 T [facility] Performing Lab [facility] 12/18/2021 9:29 T [facility] Scanned Images 12/18/2021 9:29 [facility] Tissue ENTIRE LIVER / Unknown Collection, Other / Unknown 12/16/2021 11:05 EDT 12/16/2021 11:54 EDT Mustapha Nguyen MD PATHOLOGY OR DERABLES [facility] [address] [place] [address] * NON BUILDING INSULATION INSTALLER/FNA CYTOLOGY (12/16/2021 10:56 EDT) Note to Patient The following pathology results have been interpreted by your pathologist and may be available to you before your health provider has had the opportunity to review them. Please allow time for your provider to receive these results and explore management options, if applicable. 12/18/2021 12:41 [facility] Final Diagnosis LIVER, ULTRASOUND GUIDED FINE NEEDLE ASPIRATION: - Blood, hepatocytes, and scant bile duct cells present. - No tumor identified. 12/18/2021 12:41 [facility] Diagnosis Comment The aspiration specimen is pauci cellular and consist predominantly of blood with reactive hepatocytes and scant groups of ductal epithelium. A cell block was created and examined to increase diagnostic yield and is acellular. Deeper sections of the cell block have been reviewed. The patients prior left neck FNA specimen ([id number]) has been reviewed in conjunction with this case. Please also see the concurrent core biopsy specimen ([id number]) for additional characterization. 12/18/2021 12:41 [facility] Attestation There was significant resident/fellow involvement in the diagnostic evaluation of this case. By the signature below, the attending physician certifies that they have personally conducted a gross and/or microscopic examination of the described specimens and rendered or confirmed the above diagnosis. 12/18/2021 12:41 [facility] at 1241 Rapid Diagnosis LIVER, ULTRASOUND GUIDED FINE NEEDLE ASPIRATION: Evaluation episode #1: Pass 1-3: Hepatocytes present; no definitive tumor. Evaluation episode #2: Pass 4-6: Hepatocytes only; no definitive tumor. Proceeding to cores. Dr. Ron Silva 12/16/2021 I have personally reviewed the slides and the Fellow? s interpretation in one sitting and agree with the findings. Dr. Jorge Harrison 12/16/2021 11:00 AM 12/18/2021 12:41 [facility] Clinical History Breast cancer with liver metastases; biopsy of liver tumor 12/18/2021 12:41 [facility] Gross Description A. 12 fixed prepared slides, and 1 tube of RPMI for cell block processing were received. 12/18/2021 12:41 [facility] Resident/Junior w: Rashad Silva MD 12/18/2021 12:41 [facility] Performing Lab [facility] 12/18/2021 12:41 T [facility] Scanned Images 12/18/2021 12:41 [facility] Fine Needle Aspirate ENTIRE LIVER / Unknown 12/16/2021 10:56 EDT 12/16/2021 11:15 EDT Mustapha Nguyen MD PATHOLOGY OR DERABLES Performing Organization Address City/State/[facility] Co de Phone Number [facility] [address] [place] [address] * (ABNORMAL) COMPLETE BLOOD COUNT AND DIFFERENTIAL (12/16/2021 9:22 EDT) WBC 6.48 4.00 - 12.40 K/cmm 12/16/2021 9:43 [facility] RBC 3.20(L) 3.86 - 5.04 M/cmm 12/16/2021 9:43 [facility] Hemoglobin 12.2 11.6 - 15.2 gm/dL 12/16/2021 9:43 [facility] HCT 35.1 34.9 - 44.4 % 12/16/2021 9:43 [facility] MCV 110(H) 81 - 98 fl 12/16/2021 9:43 [facility] MCH 38.1(H) 26.7 - 33.3 pg 12/16/2021 9:43 [facility] MCHC 34.8 32.1 - 35.9 gm/dL 12/16/2021 9:43 [facility] RDW-CV 13.6 <14.7 % 12/16/2021 9:43 [facility] RDW-SD 52.7(H) <50.4 fl 12/16/2021 9:43 [facility] PLT 380(H) 141 - 377 K/cmm 12/16/2021 9:43 [facility] MPV 9.4(L) 9.5 - 12.7 fl 12/16/2021 9:43 [facility] % Neutrophils 50.3 % 12/16/2021 9:43 [facility] % Lymphocytes 33.6 % 12/16/2021 9:43 [facility] % Monocytes 13.9 % 12/16/2021 9:43 [facility] % Eosinophils 0.8 % 12/16/2021 9:43 [facility] % Basophils 0.9 % 12/16/2021 9:43 [facility] % Immature Grans 0.5 % 12/17/19 9:43 [facility] Absolute Neutrophils 3.26 2.20 - 8.85 K/cmm 12/16/2021 9:43 [facility] Absolute Lymphocytes 2.18 1.09 - 3.30 K/cmm 12/16/2021 9:43 [facility] Absolute Monocytes 0.90(H) 0.10 - 0.80 K/cmm 12/16/2021 9:43 [facility] Absolute Eosinophils 0.05 0.03 - 0.61 K/cmm 12/16/2021 9:43 [facility] ABS Basophils 0.06 0.01 - 0.11 K/cmm 12/16/2021 9:43 [facility] Absolute Immature Grans 0.03 0.00 - 0.06 K/cmm 12/16/2021 9:43 [facility] Type of Differential: Auto 12/16/2021 9:43 [facility] Blood VENOUS BLOOD / Unknown Venipuncture / Unknown 12/16/2021 9:22 EDT 12/16/2021 9:28 EDT Augustina Colin MD PhD PACKAGES & DNA PROBE ORDERABLES [facility] [address] [place] [address] * COMPREHENSIVE METABOLIC PANEL (CMP) (12/16/2021 9:22 EDT) Sodium 139 136 - 145 mmol/L 12/16/2021 9:55 [facility] Potassium 4.1 3.5 - 5.0 mmol/L 12/16/2021 9:55 [facility] Chloride 109 96 - 110 mmol/L 12/16/2021 9:55 [facility] CO2 Total 25 22 - 32 mmol/L 12/16/2021 9:55 [facility] Glucose 99 70 - 100 mg/dL 12/16/2021 9:55 [facility] BUN 16 10 - 26 mg/dL 12/16/2021 9:55 [facility] Creatinine 0.66 0.52 - 1.04 mg/dL 12/16/2021 9:55 [facility] eGFR 100 >60 mL/min/1.7 3m2 12/16/2021 9:55 [facility] Total Protein 6.5 6.3 - 8.2 g/dL 12/16/2021 9:55 [facility] Albumin 3.9 3.4 - 4.9 g/dL 12/16/2021 9:55 [facility] Alkaline Phosphatase 89 38 - 126 U/L 12/16/2021 9:55 [facility] AST 33 15 - 46 U/L 12/16/2021 9:55 [facility] ALT 19 <35 U/L 12/16/2021 9:55 [facility] Bilirubin, Total <0.5 <1.4 mg/dL 12/17/19 9:55 [facility] Calcium 8.8 8.5 - 10.5 mg/dL 12/16/2021 9:55 [facility] Albumin/Globulin Ratio 1.5 1.0 - 2.5 12/16/2021 9:55 [facility] Anion Gap 5 5 - 14 12/16/2021 9:55 [facility] Blood VENOUS BLOOD / Unknown Venipuncture / Unknown 12/16/2021 9:22 EDT 12/16/2021 9:28 EDT Augustina Colin MD PhD CHEMISTRY & BLOOD GA S ORDERABLES Performing Organization Address [facility]/ZIP Co de Phone Number [facility] [address] [place] [address] * PROTIME (12/16/2021 9:22 EDT) I.N.R. 1.0 0.9 - 1.1 Ratio 12/16/2021 9:56 EDT [facility] Pro Time 12.0 10.4 - 12.6 secs 12/16/2021 9:56 EDT [facility] Blood VENOUS BLOOD / Unknown Venipuncture / Unknown 12/16/2021 9:22 EDT 12/16/2021 9:28 EDT Narrative [facility] - 12/16/2021 9:56 EDT Moderate Intensity Coumadin INR = 2.0-3.0 Adjustments in anticoagulant therapy dose should be based on the INR and NOT on the Protime. Gamaliel Phan PA-C HEMATOLOGY & PF4 ORDERABLES Performing Organization Address [facility] Co de Phone Number [facility] [address] [place] [phone] documented in this encounter Visit Diagnoses Diagnosis Metastatic breast cancer Other specified diseases of liver documented in this encounter Administered Medications Inactive Administered Medications - up to 3 most recent administrations Medication Order MAR Action Action Date Dose Rate Site fentaNYL citrate (PF) injection 25-250 mcg 25-250 mcg, intravenous, ONCE PRN, 1 dose, Starting on Tue12/16/21 at 1108, Until Tue12/16/21 at 1111, Other, Radiology Procedure, Routine, Intraprocedure Given 12/16/2021 11:11 EDT 125 mcg midazolam (MDV) (VERSED) injection 0.5-10 mg 0.5-10 mg, intravenous, ONCE PRN, 1 dose, Starting on Tue12/16/21 at 1108, Until Tue12/16/21 at 1112, Sedation, Routine, Intraprocedure Given 12/16/2021 11:12 EDT 4 mg sodium chloride 0.9 % (NS) infusion 50 mL/hr, intravenous, CONTINUOUS, Starting on Tue12/16/21 at 0915, Until Tue12/18/21 at 0203, Routine, Preprocedure Rate Documented 12/16/2021 11:09 EDT 50 mL/hr 50 mL/hr documented in this encounter Orders Medications Ordered That Vj ht Not Have Been Administered Count Last Ordered Date First Ordered Date lidocaine (PF) 10 mg/mL (1 % ) injection 2 mg 1 12/16/2021 Discharge Count Last Ordered Date First Orde red Date DISCHARGE PATIENT 1 12/16/2021 documented in this encounter Care Teams Innersole Maker Relationship Specialty Start Date End Date Linda Blancas MD [address] [place] [address] PCP - General 01/06/11 Adolfo Carreno MD [address] [phone] General Surgery 04/26/19 Augustina Colin MD PhD [address] [phone] Medical Oncology 04/26/19 documented as of this encounter
--- OUTSIDE RECORDS SUMMARY | 2024-03-20 14:50 | XMS_ITS | Encounter Summary ---
Author Organization [facility] Address [address] [place] [address] Care Team Providers Care Legal Researcher Name Role Phone Linda Blancas MD Primary Care Provider [phone] Adolfo Carreno MD Unavailable [phone] Augustina Colin MD PhD Unavailable Unavailable Reason for Visit * Reason Onset Date Comments Appointment Related 12/24/2021 Encounter Details Date Type Department Care Team (Late st Contact Info) Description 12/24/2021 Telephone [facility] [address] [place], [place] [phone] Augustina Colin, PhD Appointment Related Social History [...] Miscellaneous Notes * Telephone Encounter - Nilson Davis - 12/24/2021 0739 EDT Screening Questions prior to Med Release 1. Do you have a fever or have had a fever of 100.4 degrees F. in the last 24 hours? No 2. Are you taking any medication for a recent infection? No 3. Have you had a recent illness, or changes in your health since your last infusion? If so, is your ordering provider aware? Storage Garage Attendant 4. Have you had a recent COVID vaccination or have one scheduled? If so, does your ordering provider aware? No 5. (for Remicade, Entyvio, Renflexis, Rituximab, Ocrevus, pts, 'mab' patients) Have you had any recent surgeries in the last month or have any planned in the near future? No documented in this encounter Plan of Treatment Upcoming Encounters Date Type Department Care Team (Late st Contact Info) Description 04/02/2024 10:30 EDT Appointment [facility] Interventional Radiology Unit [address] [place] [address] [phone] 04/02/2024 15:15 EDT Office Visit [facility] Surgical Oncology - [facility] [address] [place], [place] [phone] Adolfo Carreno MD 111 [facility], Level [address] [place] [phone] 04/05/2024 9:30 EDT Telemedicine [facility] - [facility] Palliative Care Services [address] [place] [address] [phone] Chichi Woods MD [address] [address] [place] [phone] 04/11/2024 15:00 EDT Telemedicine [facility] Hematology & Oncology - [address] [phone] Alisson Carreon MD [address] [place] [address] 2 [place] [phone] 04/13/2024 13:30 EDT Appointment [facility] Hematology & Oncology - [address] [phone] 04/13/2024 14:00 EDT Appointment [facility] Hematology & Oncology - [address] [phone] 04/16/2024 10:00 EST Telemedicine [facility] - [facility] Palliative Care Services [address] [place] [address] [phone] Chichi Woods MD [address] [place] [address] [address] [place] [phone] 04/24/2024 9:00 EST Appointment [facility] Radiology CT Outpatient - [address] [phone] 04/24/2024 11:00 EST Appointment [facility] Breast Imaging - [address] [phone] 04/27/2024 12:00 EST Appointment [facility] Hematology & Oncology - [address] [phone] 05/02/2024 15:00 EST Telemedicine [facility] Hematology & Oncology - [address] [phone] Alisson Carreon MD [address] [place] [address], [facility] [address] [place] [phone] 05/04/2024 10:15 EST Ancillary Procedure [facility] Cardiology - [address] [place] [address] 05/04/2024 11:30 EST Appointment [facility] Hematology & Oncology [address] [phone] 05/04/2024 12:00 EST Appointment [facility] Hematology & Oncology [address] [phone] 06/12/2024 13:00 EST Appointment [facility] Radiology CT - [address] [phone] documented as of this encounter Visit Diagnoses Not on filedocumented in this encounter Care Teams Legal Researcher Relationship Specialty Start Date End Date Linda Blancas MD [facility] [address] [place] [address] PCP - General 01/06/11 Adolfo Carreno MD [address] [place] [phone] General Surgery 04/26/19 Augustina Colin MD PhD [address] [place] [phone] Medical Oncology 04/26/19 documented as of this encounter
--- OUTSIDE RECORDS SUMMARY | 2024-03-20 14:50 | XMS_ITS | Encounter Summary ---
Author Organization [facility] Address [address] [place] [address] Care Team Providers Care Patient Support Partner Name Role Phone Linda Blancas MD Primary Care Provider [phone] Adolfo Carreno MD Unavailable [phone] Augustina Colin MD PhD Unavailable Unavailable Encounter Details Date Type Department Care Team (Late st Contact Info) Description 01/04/2022 Specialty Pharmacy [facility] - [facility] [address] [place], [place] [phone] Allen Day, [facility] Social History Tobacco Use Types [...] Contact Info) Description 04/02/2024 10:30 EDT Appointment [facility] Interventional Radiology Unit [address] [place] [address] [phone] 04/02/2024 15:15 EDT Office Visit [facility] Surgical Oncology - [address] [phone] Adolfo Carreno MD [address] [place] [phone] 04/05/2024 9:30 EDT Telemedicine [facility] - [facility] [address] [place] [address] [phone] Chichi Woods MD [address] [place] [phone] 04/11/2024 15:00 EDT Telemedicine [facility] Hematology & Oncology [address] [phone] Alisson Carreon MD [address] [place] [phone] 04/13/2024 13:30 EDT Appointment [facility] Hematology & Oncology [address] [phone] 04/13/2024 14:00 EDT Appointment [facility] Hematology & Oncology [address] [phone] 04/16/2024 10:00 EST Telemedicine [facility] - [facility] [address] [place], [place] 596261 Chichi Woods MD [address] [place] [address], [address] [place] [phone] 04/24/2024 9:00 EST Appointment [facility] Radiology CT Outpatient - [address] [phone] 04/24/2024 11:00 EST Appointment [facility] Breast Imaging - [facility] [address] [place], [place] [phone] 04/27/2024 12:00 EST Appointment [facility] Hematology & Oncology - [address] [phone] 05/02/2024 15:00 EST Telemedicine [facility] Hematology & Oncology - [address] [phone] Alisson Carreon MD [address] [place] [address], [address] [place] [phone] 05/04/2024 10:15 EST Ancillary Procedure [facility] Cardiology - [address] [place], [place] [phone] 05/04/2024 11:30 EST Appointment [facility] Hematology & Oncology - [address] [phone] 05/04/2024 12:00 EST Appointment [facility] Hematology & Oncology - [address] [phone] 06/12/2024 13:00 EST Appointment [facility] Radiology CT - [address] [phone] documented as of this encounter Visit Diagnoses Not on filedocumented in this encounter Care Teams Patient Support Partner Relationship Specialty Start Date End Date Linda Blancas MD [facility] [address] [place] [address] PCP - General 01/06/11 Adolfo Carreno MD [address] [place] [address], [facility] [address] [place] [phone] General Surgery 04/26/19 Augustina Colin MD PhD [address] [place] [address], [address] [phone] Medical Oncology 04/26/19 documented as of this encounter
--- OUTSIDE RECORDS SUMMARY | 2024-03-20 14:50 | XMS_ITS | Encounter Summary ---
Author Organization [facility] Address [address] [place] [address] Care Team Providers Care Research Pharmacist Name Role Phone Linda Blancas MD Primary Care Provider [phone] Adolfo Carreno MD Unavailable [phone] Augustina Colin MD PhD Unavailable Unavailable Reason for Referral * Radiology Services (Routine/Next Available) - Authorization Not Required Specialty Diagnoses / Procedures Referred By Contac t Referred To Contact Diagnoses Metastatic breast cancer Procedures IR BIOPSY Augustina Colin MD PhD [facility] Referral ID Status Reason Start Date Expiration Date Visits Requested Visits Authorized [id number] Authorization Not Required 12/24/2021 1 1 Reason for Visit * Radiology Services (Routine/Next Available) - Authorization Not Required Specialty Diagnoses / Procedures [facility] Referred To Contact Diagnoses Metastatic breast cancer Procedures IR BIOPSY Augustina Colin MD PhD [facility] Referral ID Status Reason Start Date Expiration Date Visits Requested Visits Authorized [id number] Authorization Not Required 12/24/2021 1 1 Encounter Details Date Type Department Care Team (Late st Contact Info) Description 01/08/2022 11:42 EDT - 01/08/2022 23:59 EDT Hospital Encounter [facility] Interventional Radiology Unit [address], [place] [id number] David Moya MD 111 [facility], [facility] [address] [place] [address] Lipoma of back (Primary Dx); Metastatic breast cancer (HCC-CMS) (HCC) (HCC-CMS); Osteopenia of necks of both femurs; Other specified diseases of liver Discharge Disposition: [...] Sign Reading Time Taken Comments Blood Pressure 118/64 01/08/2022 1645 EDT Pulse - - Temperature 36.4 ??C (97.5 ??F) 01/08/2022 1645 EDT Respiratory Rate 18 01/08/2022 1645 EDT Oxygen Saturation 99% 01/08/2022 1645 EDT Inhaled Oxygen Concentration - - Weight 59 kg (130 lb) 01/08/2022 1236 EDT Height 154.9 cm (5' 1) 01/08/2022 1236 EDT Body Mass Index 24.56 01/08/2022 1236 EDT documented in this encounter Functional Status [...] * Discharge Instructions* Quita Garcia RN - 01/08/2022 13:48 EDT Interventional Radiology Biopsy Discharge Instructions Date of biopsy: 01/08/2022 Provider: David Moya MD Biopsy site: Liver The results of [...] ABOVE, PLEASECALL THE INTERVENTIONAL RADIOLOGY CLINIC AT [phone], OPTION 2 TO REACH THE NURSE TRIAGE [...] week off. 84 Tablet 3 01/05/2022 03/31/2022 DOXYLAMINE SUCCINATE (UNISOM ORAL) Take by mouth as needed. Takes half a tablet 02/02/2011 01/13/2022 gabapentin (NEURONTIN) 100 mg capsule Take 2 Caps by mouth 2 times daily. 360 Cap 3 08/16/2012 12/14/2023 ibuprofen (MOTRIN) 200 mg tablet Take 2 Tablets by mouth as needed. 12/07/2023 mv-mn/C/glutamin/lysin/h [id number] (A[place]NE, ASCORBATE SODIUM, ORAL) Take by mouth [...] Progress Notes * Quita Garcia RN - 01/08/2022 1200 EDT Procedure: CT liver biopsy Patient received from CVU to IR 25 at 1335. Patient name and verified using armband and verbally. Consent completed and verified. Patient is alert and oriented x 4, able to follow commands with all extremities, able to make needs known. No complains of pain. Patient's allergies, medications, lab results, [...] room prior to the start of procedure (SBK, BJF, and Dr. Moya). Dr. Moya present in the room prior to conscious sedation initiation, conscious sedation started.Patient monitored throughout procedure. Sterile prep of abdomen with duraprep by GMS in the usual sterile fashion in compliance with manufacturers recommendation. CT guidance utilized to access liver. Cytology at the bedside, samples collected, samples confirmedby cytology and sent to the lab. Puncture site dressed with a bandaid, dressing is clean/dry/intact. Procedure completed by Dr. Moya. Procedure well tolerated by patient, vital signs stable. Medication administration IV Versed 2.5 mg IV Fentanyl 125 mcg Sedation time with Dr. Moya: 50 minutes Follow up: Please release sign & held post procedure orders. Discharge instructions placed in the patient's chart. Report given to CVU RN. Discharge instructions to be reviewed with the patient by the discharging RN. Patient transferred in stable condition. * Sandhya Dill RN - 01/08/2022 1200 EDT Have you had any of the [...] See admission vital signs assessment for temperature. documented in this encounter H&P Notes * David Moya MD - 01/08/2022 1200 EDT Sedation for Procedure History & Physical Date: 01/08/2022 Time: 13:15 Location: Planned Procedure: Liver biopsy Chief Complaint/Indications for Procedure: Mass History: Previous Complication with Sedation and/or Anesthesia? [...] 08/25/20 ??? 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 Breast cancer, right ([facility]) ([facility]) ??? Depression 08/25/20 well controlled ??? Environmental [...] [place] no complications ??? BREAST SURGERY 08/2018 palm and back forger placed right breast - [place] no complications ??? CARPAL TUNNEL RELEASE 200705/07/2019 beir block - no complications ??? FOOT SURGERY 05/2021 right big toe fused, right little toe screw ??? LIPOMA RESECTION 200005/07/2019 [place] no complications ??? MASTECTOMY Right ??? [place] INSJ/RPLCMT BREAST IMPLANT Feb MASTECTOMY Bilateral 05/30/2019 Exchange right tissue palm and back forger to silicone implant, exchange of left implant for matching performedby Tylor Boss MD at [facility] OR Social History Tobacco Use ??? Smoking status: Never Smoker ??? Smokeless tobacco: Never Used Substance Use Topics ??? Alcohol use: Not Currently Alcohol/week: 1.0 - 3.0 standard drink Types: 1 - 3 Glasses of wine per week Family History: Family History Problem Relation Age of Onset ??? Cancer Father bladder ??? Stroke Mother ??? Cancer Brother 59 esophageal ??? Stroke Brother ??? Liver Disease Brother ??? Cancer Maternal Uncle bladder ??? Breast Cancer Paternal Aunt 35 ??? Cancer Paternal Aunt 35 breast Review of Systems as pertinent: Physical: Vital Signs: BP 130/64 (BP Cuff Location: Left arm, BP Patient Position: Semi fowlers) Temp 36.2 ??C (97.2 ??F) (Temporal) Resp 18 Ht 154.9 cm (61) Wt 59 kg (130 lb) SpO2 99% BMI 24.56 kg/m?? Heart Examination: Cardiac Regularity: Regular Respiratory Examination: Breath Sounds Right: Clear Breath Sounds Left: Clear Additional physical exam related to the proposed procedure, patient activity, disease state and treatment as pertinent: Assessment: Previous complications with sedation or anesthesia?: No Airway Concerns: None/NA Anesthesia Classification: ASA 3 Plan: Appropriate for sedation Fasting Time: Time of last liquid intake: 929 Date of Last Liquid Intake: 01/08/22 Time of last solid intake: 2129 Date of last solid intake: 01/07/22 Patient Appropriate Candidate for Planned Sedation?: Yes David Moya MD 01/08/2022 13:15 documented in this encounter Procedure Notes * David Moya MD - 01/08/2022 1200 EDT INTERVENTIONAL RADIOLOGY BRIEF PROCEDURE NOTE Radiologist: Griffin Procedure(s) Performed: CT guided liver mass biopsy Indication/Pre-procedure diagnosis: mass Post-procedure diagnosis: Same Condition: Stable Anesthesia: Local with Sedation Approach: Intercostal Medications: IV Versed and fentanyl and local lidocaine 1% Contrast: 94 cc Fluoro time: 0 min EBL: Minimal Specimens: 25g FNA and 20g cores Findings: No bleeding. A time-out was completed prior to procedure verifying correct patient, procedure, site, positioning, and special equipment if applicable. Complications: None Recommendations: Per orders. Please refer to final dictated report (Chart Review, Imaging tab in PRISM) for complete findings and recommendations. Roosevelt Moya MD Interventional Radiologist Pager #[phone] documented in this encounter Plan of Treatment Upcoming Encounters Date Type Department Care Team (Late st Contact Info) Description 04/02/2024 10:30 EDT Appointment [facility] Interventional Radiology Unit [address], [place] [phone] 04/02/2024 15:15 EDT Office Visit [facility] Surgical Oncology - [facility] [address], [place] [phone] Adolfo Carreno MD 111 [facility], [address] [place] [phone] 04/05/2024 9:30 EDT Telemedicine [facility] - [facility] Palliative Care Services [address], [place] [phone] Chichi Woods MD 111 [facility], [address] [place] [phone] 04/11/2024 15:00 EDT Telemedicine [facility] Hematology & Oncology - [address] [phone] Alisson Carreon MD [address] [place] [address] [address] [place] [phone] 04/13/2024 13:30 EDT Appointment [facility] Hematology & Oncology - [address] [phone] 04/13/2024 14:00 EDT Appointment [facility] Hematology & Oncology - [address] [address] 04/16/2024 10:00 EST Telemedicine [facility] - [facility] Palliative Care Services [address] [place] [address] Chichi Woods MD [address] [place] [phone] 04/24/2024 9:00 EST Appointment [facility] Radiology CT Outpatient - [address] [phone] 04/24/2024 11:00 EST Appointment [facility] Breast Imaging - [address] [address] 04/27/2024 12:00 EST Appointment [facility] Hematology & Oncology - [address] [phone] 05/02/2024 15:00 EST Telemedicine [facility] Hematology & Oncology - [address] [phone] Alisson Carreon MD [address] [place] [address], [place] [address] [place] [phone] 05/04/2024 10:15 EST Ancillary Procedure [facility] Cardiology - [address] [place] [address] 05/04/2024 11:30 EST Appointment [facility] Hematology & Oncology [address] [address] 05/04/2024 12:00 EST Appointment [facility] Hematology & Oncology [address] [phone] 06/12/2024 13:00 EST Appointment [facility] Radiology CT - [address] [id number] documented as of this encounter Procedures Procedure Name Priority Date/Time Associated Diagnosis Comments IR BIOPSY Routine 01/08/2022 15:00 EDT Metastatic breast cancer (HCC-CMS) (HCC) (HCC-CMS) NON HEAD CHARRER/FNA CYTOLOGY Routine 01/08/2022 14:43 EDT Lipoma of back SURGICAL PATHOLOGY Routine 01/08/2022 13 :46 EDT Lipoma of back CA 27.29 Routine 01/08/2022 12:49 EDT Osteopenia of necks of both femurs Metastatic breast cancer (HCC-CMS) (HCC) (HCC-CMS) COMPLETE BLOOD COUNT AND DIFFERENTIAL STAT 01/08/2022 12:49 EDT Metastatic breast cancer (HCC-CMS) (HCC) (HCC-CMS) COMPREHENSIVE METABOLIC PANEL (CMP) STAT 01/08/2022 12:49 EDT Metastatic breast cancer (HCC-CMS) (HCC) (HCC-CMS) documented in this encounter Results * IR BIOPSY (01/08/2022 [...] samples and requested core needle biopsy. Next, -riayg core needle biopsies of the mass were performed. The coaxialneedle was then removed, and immediate postprocedure CT revealed noapparent complication. A dressing was applied. IMPRESSION 1. Technically successful CT-guided liver mass biopsy. Augustina Colin MD PhD IMG IR ORDERABLES * NON HEAD CHARRER/FNA CYTOLOGY (01/08/2022 14:43 EDT) Note to Patient The following pathology results have been interpreted by your pathologist and may be available to you before your health provider has had the opportunity to review them. Please allow time for your provider to receive these results and explore management options, if applicable. 01/12/2022 15:50 [facility] Final Diagnosis A. LIVER, MASS, CT-GUIDED FINE NEEDLE ASPIRATION: - Metastatic adenocarcinoma, consistent with breast primary. See comment. 01/12/2022 15:50 [facility] Diagnosis Comment Cytologic evaluation demonstrates a cellular aspirate composed of clusters of malignant cells in a background of benign hepatocytes and blood. Malignant cells have an increased nuclear to cytoplasmic ratio with clumped chromatin, prominent nucleoli, and vacuolated cytoplasm. A cell block is prepared to increase diagnostic yield, and is composed of only blood. Please see concurrent surgical pathology biopsy ([id number]) for the immunohistochemical staining profile and additional diagnostic information. The prior chest wall excision ([id number]) is reviewed in conjunction with the current material, and malignant cells are morphologically similar. 01/12/2022 15:50 [facility] Attestation There was significan t resident/fellow involvement in the diagnostic evaluation of this case. By the signature below, the attending physician certifies that they have personally conducted a gross and/or microscopic examination of the described specimens and rendered or confirmed the above diagnosis. 01/12/2022 15:50 EDT [facility] at 1550 Rapid Diagnosis LIVER MASS, CT GUIDED FINE NEEDLE ASPIRATION: Evaluation episode #1: Pass #1-3: Hepatocytes present. Evaluation episode #2: Pass #4-6: Positive for malignant cells. Core biopsies obtained. Dr. Alejandrina Tong 01/08/2022 2:45 PM I was present at the procedure and have personally reviewed the slides and the resident's interpretation and agree with the findings. Dr. Elias Shepherd 01/08/2022 2:46 PM 01/12/2022 15:50 EDT [facility] Clinical History Liver mass; clinical diagnosis code: C50.919 01/12/2022 15:50 EDT [facility] Gross Description A. 7 fixed prepared slides, 1 air dried prepared slides, and 1 tube of RPMI for cell block processing were received. 01/12/2022 15:50 EDT [facility] Resident/Fell ow: Kimberly Tong DO 01/12/2022 15:50 EDT [facility] Performing Lab [facility] 01/12/2022 15:50 EDT [facility] Scanned Images 01/12/2022 15:50 EDT [facility] Fine Needle Aspirate ENTIRE LIVER / Unknown 01/08/2022 14:43 EDT 01/08/2022 15:13 EDT David Moya MD PATHOLOGY OR DERABLES [facility] [address] [place] [address] * SURGICAL PATHOLOGY (01/08/2022 13:46 EDT) Ancillary Studies Addendum ER/[place] RESULTS: Tissue submitted: Paraffin embedded tissue block labelled [id number] from [facility] Immunohistochemical assays for estrogen receptors (SP1, [place]) and progesterone receptors (16, Leica) have been performed on this specimen. Intranuclear receptor complexes were visualized on tissue sections using an HRP polymer immunohistochemical technique. This assay is intended for paraffin-embedded tissue fixed in 10% neutral buffered formalin for 6-72 hours. Results are reported as negative (<1% nuclear staining) or positive with the proportion of positive cells noted. Estrogen receptor expression in <5% of tumor cells may not have a strong interaction with estrogen receptor modulators such as Tamoxifen. Reference: ASCO-CAP Guideline Recommendations for IHC testing of ER and [place]. J Clin Oncol 2010;28:4382-4341. NOTE: One or more of the reagents [...] performance characteristics have been determined by [facility] and/or by the referring laboratory. The [...] to perform high complexity clinical laboratory testing. INTERPRETATION: LIVER, MASS, BIOPSY: - Metastatic adenocarcinoma. - Positive for estrogen receptors (in 90% of tumor cells). - Nuclear staining intensity: Moderate. COMMENT: Cold ischemic time and total formalin fixation time appropriate: Yes HER2/EM RESULTS: Tissue submitted: Paraffin embedded tissue block labelled [id number] From [facility] Fixative: Formalin This immunohistochemical assay is [...] performed under appropriate conditions according to the warp worker's instructions with appropriate assay and tissue controls using an Anti-Her2 (4B5) Rabbit Monoclonal Antibody ([place]). Her2 Scoring Guidelines (invasive tumor component only) [...] *FDA statement Assay results Her2 IHC Score: 1+ Tumor location: Liver mass Cold ischemic time and total formalin fixative time appropriate: Yes Cells with complete membrane staining: None Membrane staining intensity: Faint Partial membrane staining: Present in 20% of cells Cytoplasmic staining: Absent Staining pattern: N/A Staining in benign epithelium: Not applicable The Her2 assay performed is interpreted as: NEGATIVE The Her2 IHC slide from this case was reviewed at breast intradepartmental consultation conference. 01/13/2022 15:55 [facility] Addendum electronically signed by Kari Chacon MD on 01/13/2022 at 1555 Note to Patient The following pathology results have been interpreted by your pathologist and may be available to you before your health provider has had the opportunity to review them. Please allow time for your provider to receive these results and explore management options, if applicable. 01/13/2022 15:55 [facility] Final Diagnosis A. LIVER, MASS, CT-GUIDED NEEDLE CORE BIOPSY: - Metastatic adenocarcinoma, consistent with breast primary. See comment. 01/13/2022 15:55 [facility] Diagnosis Comment One of the liver core biopsies shows a 2 mm focus of metastatic adenocarcinoma (block A2). Elevator Constructor sections from the prior breast carcinoma (in 2018; [id number]) were reviewed in conjunction with the current material and show morphologic overlap with the carcinoma cells in the current biopsy. A maddy 3 stain shows strong nuclear staining in the carcinoma cells. Taken together the findings support metastatic carcinoma of breast primary. Elevator Constructor slides from this case including priors were reviewed at breast intradepartmental consultation conference. Estrogen receptor assay and Her2 studies were performed on the biopsy material and will be reported in an addendum. The adenocarcinoma cells are scant in block A2 and attempts were made to conserve lesional tissue for advanced molecular testing. A concurrent cytology specimen was obtained ([id number]), please see separate report for details. Immunoperoxidase stains were performed on this case to confirm breast origin. ANTIBODY(CLONE)(BLOCK ):RESULT GATA3 ([id number], [place]) (A2): strongly positive in carcinoma cells. NOTE: One or more of the reagents [...] performance characteristics have been determined by [facility] and/or by the referring laboratory. The [...] to perform high complexity clinical laboratory testing. 01/13/2022 15:55 [facility] Attestation By the signature below, the attending physician certifies that they have 1) personally conducted a gross and/or microscopic examination of the described specimen(s), and/or personally interpreted the results of laboratory testing of the described specimen(s), and 2) personally rendered or confirmed the above diagnosis. 01/13/2022 15:55 [facility] at 1037 Clinical History Liver mass; clinical diagnosis code: D17.1 01/13/2022 15:55 [facility] Gross Description A. Received in formalin labelled with proper patient identification (initials O, K) and not otherwise specified are 6 moura tissue cores (ranging length from 1.0 cm to 1.6 cm, and each averaging 0.1 cm in diameter). The specimens are entirely submitted in A1-A2. Time removed from patient: 13:46 hours 01/08/2022 Time placed in formalin: 13:46 hours 01/08/2022 Time out of formalin: 00:30 hours 01/09/2022 TANK RENTERIA(ASCP) 01/08/2022 15:49 01/13/2022 15:55 [facility] Performing Lab [facility] 01/13/2022 15:55 T [facility] Scanned Images 01/13/2022 15:55 [facility] Tissue ORGAN DONOR / Unknown 01/08/2022 13:46 EDT 01/08/2022 15:30 EDT David Moya MD PATHOLOGY OR DERABLES Performing Organization Address City/State/[facility] Co de Phone Number [facility] [address] [place] [address] * (ABNORMAL) COMPLETE BLOOD COUNT AND DIFFERENTIAL (01/08/2022 12:49 EDT) WBC 6.84 4.00 - 12.40 K/cmm 01/08/2022 13:02 [facility] RBC 3.62(L) 3.86 - 5.04 M/cmm 01/08/2022 13:02 [facility] Hemoglobin 13.7 11.6 - 15.2 gm/dL 01/08/2022 13:02 [facility] HCT 39.8 34.9 - 44.4 % 01/08/2022 13:02 [facility] MCV 110(H) 81 - 98 fl 01/08/2022 13:02 [facility] MCH 37.8(H) 26.7 - 33.3 pg 01/08/2022 13:02 [facility] MCHC 34.4 32.1 - 35.9 gm/dL 01/08/2022 13:02 [facility] RDW-CV 13.2 <14.7 % 01/08/2022 13:02 [facility] RDW-SD 53.7(H) <50.4 fl 01/08/2022 13:02 [facility] PLT 195 141 - 377 K/cmm 01/08/2022 13:02 [facility] MPV 10.2 9.5 - 12.7 fl 01/08/2022 13:02 [facility] % Neutrophils 49.7 % 01/08/2022 13:02 [facility] % Lymphocytes 36.3 % 01/08/2022 13:02 [facility] % Monocytes 9.8 % 01/08/2022 13:02 [facility] % Eosinophils 3.4 % 01/08/2022 13:02 [facility] % Basophils 0.7 % 01/08/2022 13:02 [facility] % Immature Grans 0.1 % 01/09/20 13:02 [facility] Absolute Neutrophils 3.40 2.20 - 8.85 K/cmm 01/08/2022 13:02 [facility] Absolute Lymphocytes 2.48 1.09 - 3.30 K/cmm 01/08/2022 13:02 [facility] Absolute Monocytes 0.67 0.10 - 0.80 K/cmm 01/08/2022 13:02 [facility] Absolute Eosinophils 0.23 0.03 - 0.61 K/cmm 01/08/2022 13:02 [facility] ABS Basophils 0.05 0.01 - 0.11 K/cmm 01/08/2022 13:02 [facility] Absolute Immature Grans 0.01 0.00 - 0.06 K/cmm 01/08/2022 13:02 [facility] Type of Differential: Auto 01/08/2022 13:02 [facility] Blood VENOUS BLOOD / Unknown Venipuncture / Unknown 01/08/2022 12:49 EDT 01/08/2022 12:54 EDT Augustina Colin MD PhD PACKAGES & DNA PROBE ORDERABLES [facility] [address] [place] [address] * (ABNORMAL) COMPREHENSIVE METABOLIC PANEL (CMP) (01/08/2022 12:49 EDT) Sodium 138 136 - 145 mmol/L 01/08/2022 13:15 [facility] Potassium 4.1 3.5 - 5.0 mmol/L 01/08/2022 13:15 [facility] Chloride 104 96 - 110 mmol/L 01/08/2022 13:15 [facility] CO2 Total 27 22 - 32 mmol/L 01/08/2022 13:15 [facility] Glucose 90 70 - 100 mg/dL 01/08/2022 13:15 [facility] BUN 17 10 - 26 mg/dL 01/08/2022 13:15 [facility] Creatinine 0.77 0.52 - 1.04 mg/dL 01/08/2022 13:15 [facility] eGFR 88 >60 mL/min/1.7 3m2 01/08/2022 13:15 [facility] Total Protein 7.0 6.3 - 8.2 g/dL 01/08/2022 13:15 [facility] Albumin 4.2 3.4 - 4.9 g/dL 01/08/2022 13:15 [facility] Alkaline Phosphatase 84 38 - 126 U/L 01/08/2022 13:15 [facility] AST 63(H) 15 - 46 U/L 01/08/2022 13:15 [facility] ALT 47(H) <35 U/L 01/08/2022 13:15 [facility] Bilirubin, Total 0.9 <1.4 mg/dL 01/09/20 13:15 [facility] Calcium 8.8 8.5 - 10.5 mg/dL 01/08/2022 13:15 [facility] Albumin/Globulin Ratio 1.5 1.0 - 2.5 01/08/2022 13:15 [facility] Anion Gap 7 5 - 14 01/08/2022 13:15 [facility] Blood VENOUS BLOOD / Unknown Venipuncture / Unknown 01/08/2022 12:49 EDT 01/08/2022 12:54 EDT Augustina Colin MD PhD CHEMISTRY & BLOOD GA S ORDERABLES Performing Organization Address [facility] Co de Phone Number [facility] [address] [place] [address] * (ABNORMAL) CA 27.29 (01/08/2022 12:49 EDT) CA 27.29 281.8(H) <38.0 U/mL 01/08/2022 14:10 EDT [facility] Comment: NOTE: Serum CA 27.29 concentration should not be interpreted as absolute evidence for the presence or absence of malignant disease. Assayed on Siemens HealthMediaaur XPT using chemiluminescent technology. ??Values obtained by using different assay methods cannot be used interchangeably. Blood VENOUS BLOOD / Unknown Venipuncture / Unknown 01/08/2022 12:49 EDT 01/08/2022 12:54 EDT Augustina Colin MD PhD CHEMISTRY & BLOOD GA S ORDERABLES Performing Organization Address [facility] Co de Phone Number [facility] [address] [place] [address] documented in this encounter Visit Diagnoses Diagnosis Lipoma of back- Primary Lipoma of other specified sites Metastatic breast cancer Osteopenia of necks of both femurs Other specified diseases of liver documented in this encounter Administered Medications Inactive Administered Medications - up to 3 most recent administrations Medication Order MAR Action Action Date Dose Rate Site fentaNYL citrate (PF) injection 25-250 mcg 25-250 mcg, intravenous, ONCE PRN, 1 dose, Starting on Tue01/08/22 at 1258, Until Tue01/08/22 at 1447, Other, Radiology Procedure, Routine, Intraprocedure Given 01/08/2022 14:47 EDT 125 mcg iohexoL (OMNIPAQUE 350) solution 100 mL 100 mL, intravenous, Once in imaging, 1 dose, Starting on Tue01/08/22 at 1500, Until Tue01/08/22 at 1502, Routine Given 01/08/2022 15:02 EDT 94 mL IV midazolam (MDV) (VERSED) injection 0.5-10 mg 0.5-10 mg, intravenous, ONCE PRN, 1 dose, Starting on Tue01/08/22 at 1258, Until Tue01/08/22 at 1448, Sedation, Routine, Intraprocedure Given 01/08/2022 14:48 EDT 2.5 mg sodium chloride 0.9 % (NS) infusion 50 mL/hr, intravenous, CONTINUOUS, Starting on Tue01/08/22 at 1245, Until Tue01/10/22 at 0203, Routine, Preprocedure New Bag 01/08/2022 12:45 EDT 50 mL/hr 50 mL/hr documented in this encounter Orders Medications Ordered That Vj ht Not Have Been Administered Count Last Ordered Date First Ordered Date flumazenil (ROMAZICON) injection 0.2 mg 1 0 01/08/2022 lidocaine (PF) 10 mg/mL (1 % ) injection 2 mg 1 01/08/2022 naloxone (NARCAN) injection 0.4 mg 1 2021 Nursing Count Last Ordered Date First Orde red Date INSERT PERIPHERAL IV 1 01/08/2022 VITAL SIGNS 1 01/08/2022 Discharge Count Last Ordered Date First Orde red Date DISCHARGE PATIENT 1 01/08/2022 documented in this encounter Care Teams Research Pharmacist Relationship Specialty Start Date End Date Linda Blancas MD [facility] [address] [place] [address] PCP - General 01/06/11 Adolfo Carreno MD [address] [place] [phone] General Surgery 04/26/19 Augustina Colin MD PhD [address] [place] [phone] Medical Oncology 04/26/19 documented as of this encounter
--- OUTSIDE RECORDS SUMMARY | 2024-03-20 14:50 | XMS_ITS | Encounter Summary ---
Author Organization [facility] Address [address] [place] [address] Care Team Providers Care Gate Attendant Name Role Phone Linda Blancas MD Primary Care Provider [phone] Adolfo Carreno MD Unavailable [phone] Augustina Colin MD PhD Unavailable Unavailable Reason for Visit * Reason Onset Date Comments Medication Management 12/21/2021 Encounter Details Date Type Department Care Team (Late st Contact Info) Description 12/21/[address] [facility] Hematology & Oncology - Main [place] [address] [place], [place] [id number] Augustina Colin, PhD Medication Management Social History [...] encounter Miscellaneous Notes * Telephone Encounter - Sima Bear - 12/21/2021 1050 EDT Would like to know if she can stop chemo due to liver being negative for cancer. Patient considers as urgent documented in this encounter Plan of Treatment Upcoming Encounters Date Type Department Care Team (Late st Contact Info) Description 04/02/2024 10:30 EDT Appointment [facility] Interventional Radiology Unit [address] [place] [address] [phone] 04/02/2024 15:15 EDT Office Visit [facility] Surgical Oncology - [address] [phone] Adolfo Carreno MD [address] [place] [phone] 04/05/2024 9:30 EDT Telemedicine [facility] - [facility] [address] [place] [address] [phone] Chichi Woods MD [address] [place] [phone] 04/11/2024 15:00 EDT Telemedicine [facility] Hematology & Oncology - [address] [phone] Alisson Carreon MD [address] [place] [address] 2 [place] [phone] 04/13/2024 13:30 EDT Appointment [facility] Hematology & Oncology - [address] [address] 04/13/2024 14:00 EDT Appointment [facility] Hematology & Oncology - [address] [address] 04/16/2024 10:00 EST Telemedicine [facility] - [facility] [address] [place] [address] [phone] Chichi Woods MD [address] [place] [phone] 04/24/2024 9:00 EST Appointment [facility] Radiology CT Outpatient - [address] [address] 04/24/2024 11:00 EST Appointment [facility] Breast Imaging - [facility] [address] [place] [address] [place], [place] [phone] 04/27/2024 12:00 EST Appointment [facility] Hematology & Oncology [address] [phone] 05/02/2024 15:00 EST Telemedicine [facility] Hematology & Oncology - [address] [address] Alisson Carreon MD [address] [place], [place] [address]ili, Level 2 [place] [phone] 05/04/2024 10:15 EST Ancillary Procedure [facility] Cardiology [place] [address] [place] [address] 05/04/2024 11:30 EST Appointment [facility] Hematology & Oncology - [address] [phone] 05/04/2024 12:[address] [facility] Cancer Center Hematology & Oncology - [address] [phone] 06/12/2024 13:[address] [facility] Radiology CT - [address] [address] documented as of this encounter Visit Diagnoses Not on filedocumented in this encounter Additional Health Concerns Infection Onset Date Last Indicated Resolved Time R/O COVID-19 12/12/2023 12/12/2023 12/12/2023 15:3 5 EDT R/O COVID-19 01/08/2024 01/08/2024 01/08/2024 18:2 6 EDT R/O COVID-19 01/16/2024 01/16/2024 01/16/2024 17:5 0 EDT documented as of this encounter Care Teams Gate Attendant Relationship Specialty Start Date End Date Linda Blancas MD [facility] [address] [place] [address] PCP - General 01/06/11 Adolfo Carreno MD [address] [place] [phone] General Surgery 04/26/19 Augustina Colin MD PhD [address] [place] [phone] Medical Oncology 04/26/19 documented as of this encounter
--- OUTSIDE RECORDS SUMMARY | 2024-03-20 14:50 | XMS_ITS | Encounter Summary ---
Author Organization [facility] Address [address] [place] [address] Care Team Providers Care Sail Repair Person Name Role Phone Linda Blancas MD Primary Care Provider Adolfo Carreno MD Unavailable [phone] Augustina Colin MD PhD Unavailable Unavailable Encounter Details Date Type Department Care Team (Late st Contact Info) Description 12/15/2021 Specialty Pharmacy [facility] - [facility] [address] [place], [place] 0[address] Allen Day, [facility] Social History Tobacco Use Types Packs/Day Years [...] encounter Progress Notes * Ingrid Goldman - 12/15/2021 1118 EDT Specialty Pharmacy Non-Outreach Documentation Medication: Capecitabine Clinic: Onc Reason for Encounter: Outreach Notes: RTS until 12/16/21 Follow up date: 12/16/21 Follow up reason: Outreach documented in this encounter Plan of Treatment Upcoming Encounters Date Type Department Care Team (Late st Contact Info) Description 04/02/2024 10:30 EDT Appointment [facility] Interventional Radiology Unit [address] [place] [phone] 04/02/2024 15:15 EDT Office Visit [facility] Surgical Oncology - [address] [phone] Adolfo Carreno MD [address] [place] [address] [address] [place] [phone] 04/05/2024 9:30 EDT Telemedicine [facility] Services [address] [place] [address] Chichi Woods MD [address] [place] [address], [address] [phone] 04/11/2024 15:00 EDT Telemedicine [facility] Hematology & Oncology - [address] [phone] Alisson Carreon MD [address] [place] [address] 2 [place] [phone] 04/13/2024 13:30 EDT Appointment [facility] Hematology & Oncology - [address] [phone] 04/13/2024 14:00 EDT Appointment [facility] Hematology & Oncology [address] [address] 04/16/2024 10:00 EST Telemedicine [facility] - [facility] Palliative Care Services [address] [place] [address] [phone] Chichi Woods MD [address] [place] [address], [address] [phone] 04/24/2024 9:00 EST Appointment [facility] Radiology CT Outpatient - [address] [phone] 04/24/2024 11:00 EST Appointment [facility] Breast Imaging - [facility] [address] [phone] 04/27/2024 12:00 EST Appointment [facility] Hematology & Oncology - [address] [phone] 05/02/2024 15:00 EST Telemedicine [facility] Hematology & Oncology [address] 983001 Alisson Carreon MD [address] [place] [address], Level [address] [place] [phone] 05/04/2024 10:15 EST Ancillary Procedure [facility] Cardiology [place] [place] [address] 05/04/2024 11:30 EST Appointment [facility] Hematology & Oncology - [address] [phone] 05/04/2024 12:00 EST Appointment [facility] Hematology & Oncology - [address] [phone] 06/12/2024 13:00 EST Appointment [facility] Radiology CT - [address] [phone] documented as of this encounter Visit Diagnoses Not on filedocumented in this encounter Care Teams Sail Repair Person Relationship Specialty Start Date End Date Linda Blancas MD [facility] [address] [place], [place] [address] PCP - General 01/06/11 Adolfo Carreno MD [address] [place] [address] [phone] General Surgery 04/26/19 Augustina Colin MD PhD [address] [place] [address] 2 [place] [phone] Medical Oncology 04/26/19 documented as of this encounter
--- OUTSIDE RECORDS SUMMARY | 2024-03-20 14:50 | XMS_ITS | Encounter Summary ---
Author Organization [facility] Address [address] [place] [address] Care Team Providers Care Insurance Broker Name Role Phone Linda Blancas MD Primary Care Provider [phone] Adolfo Carreno MD Unavailable [phone] Augustina Colin MD PhD Unavailable Unavailable Reason for Visit * Reason Onset Date Comments Appointment Related 12/28/2021 Encounter Details Date Type Department Care Team (Late st Contact Info) Description 12/28/2021 Telephone [facility] Interventional Radiology - [address] [address] Johnson Kwon MD 111 [facility] Level [address] [place] [phone] Appointment Related Social History Tobacco Use Types [...] * Telephone Encounter - Susanne Cedeno - 12/28/2021 1131 EDT Spoke with Sendy in regards to scheduling their outpatient CT guided liver biopsy with interventional radiology at [facility]. Patient will be coming in on Monday 01/08 @ 1200, checking in at 1145am at registration. The following details were reviewed with patient to ensure procedure completed on scheduled date: -Patient understands that they will need a delivery driver for this procedure. -Patient understands that they should plan to be here for 4-5 hours that day in total for prep, [...] before the check in time (starting at 10:00) After 10:00 AM, nothing by mouth. Please be sure [...] questions. I have sent patient confirmation via TrashOut. I have notified referring office of this patients scheduled date and time. Any further questions can be addressed to Interventional Radiology Department [phone] Ext. 1 Patient verbalized understanding and agrees with Plan of Care. No cognitive barriers were identified during this conversation & they have our contact number to call with questions. Susanne Cedeno documented in this encounter Plan of Treatment Upcoming Encounters Date Type Department Care Team (Late st Contact Info) Description 04/02/2024 10:30 EDT Appointment [facility] Interventional Radiology Unit [address] [place] [address] [phone] 04/02/2024 15:15 EDT Office Visit [facility] Surgical Oncology - [address] [phone] Adolfo Carreno MD [address] [facility], Level [address] [place] [phone] 04/05/2024 9:30 EDT Telemedicine [facility] - [facility] [address] [place], [place] [phone] Chichi Woods MD 111 [facility], [address] [phone] 04/11/2024 15:00 EDT Telemedicine [facility] Hematology & Oncology - [facility] [address] [place], [place] 930[address] Alisson Carreon MD [address] [place] [address], [facility] 2 [place] [phone] 04/13/2024 13:30 EDT Appointment [facility] Hematology & Oncology - [address] [phone] 04/13/2024 14:00 EDT Appointment [facility] Hematology & Oncology - [address] [phone] 04/16/2024 10:00 EST Telemedicine [facility] - [facility] [address] [place] [address] [phone] Chichi Woods MD [address] [place] [address], [address] [phone] 04/24/2024 9:00 EST Appointment [facility] Radiology CT Outpatient - [address] [phone] 04/24/2024 11:00 EST Appointment [facility] Breast Imaging - [facility] [address] [phone] 04/27/2024 12:00 EST Appointment [facility] Hematology & Oncology - [address] [phone] 05/02/2024 15:00 EST Telemedicine [facility] Hematology & Oncology - [address] 132141 Alisson Carreon MD [address] [place] [address], [facility] 2 [place] [phone] 05/04/2024 10:15 EST Ancillary Procedure [facility] Cardiology - [address] [place], [place] [phone] 05/04/2024 11:30 EST Appointment [facility] [place] Hematology & Oncology - [address] [address] 05/04/2024 12:00 EST Appointment [facility] Hematology & Oncology - [address] [address] 06/12/2024 13:00 EST Appointment [facility] Radiology CT - [address] [address] documented as of this encounter Visit Diagnoses Not on filedocumented in this encounter Care Teams Insurance Broker Relationship Specialty Start Date End Date Linda Blancas MD [facility] [address] [place] [address] PCP - General 01/06/11 Adolfo Carreno MD [address] [place] [phone] General Surgery 04/26/19 Augustina Colin MD PhD [address] [place] [phone] Medical Oncology 04/26/19 documented as of this encounter
--- OUTSIDE RECORDS SUMMARY | 2024-03-20 14:50 | XMS_ITS | Encounter Summary ---
Author Organization [facility] Address [address] [place] [address] Care Team Providers Care Gas Maker Name Role Phone Linda Blancas MD Primary Care Provider [phone] Adolfo Carreno MD Unavailable [phone] Augustina Colin MD PhD Unavailable Unavailable Reason for Referral * Radiology Services (Routine/Next Available) - Closed Specialty Diagnoses / Procedures Referred By Doug hearn Referred To Contact Radiology Diagnoses Metastatic breast cancer Procedures MR ABDOMEN W WO CONTRAST Augustina Colin MD PhD [facility] Referral ID Status Reason Start Date Expiration Date Visits Re quested Visits Authorized [id number] Closed 02/09/2022 08/08/2022 1 1 Reason for Visit * Radiology Services (Routine/Next Available) - Closed Specialty Diagnoses / Procedures Referred By Doug hearn Referred To Contact Radiology Diagnoses Metastatic breast cancer Procedures MR ABDOMEN W WO CONTRAST Augustina Colin MD PhD [facility] Referral ID Status Reason Start Date Expiration Date Visits Re quested Visits Authorized [id number] Closed 02/09/2022 08/08/2022 1 1 Encounter Details Date Type Department Care Team (Latest Contact Info) Description 02/25/2022 15:13 EDT - 02/25/2022 23:59 EDT [facility] Radiology MRI - Main [place] [address] [place] [address] Metastatic breast cancer (HCC-CMS) (HCC) (HCC-CMS) Discharge [...] Tablets by mouth as needed. 12/07/2023 mv-mn/C/glutamin/lysin /tglx436 (A[place], ASCORBATE SODIUM, ORAL) Take by mouth [...] Appointment [facility] Interventional Radiology Unit [address] [place] [address] [phone] 04/02/2024 15:15 EDT Office Visit [facility] Surgical Oncology - [address] 649321 Adolfo Carreno MD [address] [place] [address] [phone] 04/05/2024 9:30 EDT Telemedicine [facility] - [facility] Palliative Care Services [address] [place] [address] [phone] Chichi Woods MD [address] [place] [address] [phone] 04/11/2024 15:00 EDT Telemedicine [facility] Hematology & Oncology - [address] [phone] Alisson Carreon MD [address] [place] [address] 2 [place] [phone] 04/13/2024 13:30 EDT Appointment [facility] Hematology & Oncology - [address] [phone] 04/13/2024 14:00 EDT Appointment [facility] Hematology & Oncology - [address] [phone] 04/16/2024 10:00 EST Telemedicine [facility] - [facility] Palliative Care Services [address] [place] [address] [phone] Chihci Woods MD [address] [place] [address] [phone] 04/24/2024 9:00 EST Appointment [facility] Radiology CT Outpatient - [address] [address] 04/24/2024 11:00 EST Appointment [facility] Breast Imaging - [facility] S [address] [id number] 04/27/2024 12:00 EST Appointment [facility] Hematology & Oncology [address] [phone] 05/02/2024 15:00 EST Telemedicine [facility] Hematology & Oncology - [address] [address] Alisson Carreon MD [address] [place] [address], Level 2 [place] [phone] 05/04/2024 10:15 EST Ancillary Procedure [facility] Cardiology [place] [address] [place] [address] 05/04/2024 11:30 EST Appointment [facility] Hematology & Oncology - [address] [phone] 05/04/2024 12:00 EST Appointment [facility] Hematology & Oncology - [address] [address] 06/12/2024 13:00 EST Appointment [facility] Center Radiology CT - [address] [address] documented as of this encounter Procedures Procedure Name Priority Date/Time Associated Diagnosis Comments MR ABDOMEN W WO CONTRAST Routine 02/25/2022 17:25 EDT Metastatic breast cancer (HCC-CMS) (HCC) (HCC-CMS) documented in this encounter Results * MR ABDOMEN W WO CONTRAST (02/25/2022 17:25 EDT) Anatomical Region Laterality Modality Body, Abdomen Magnetic Resonan ce 02/26/2022 13:3 9 EDT Impressions 02/26/2022 13:39 EDT 1. ??Numerous hepatic metastases have either decreased in size or become inconspicuous compared to November 2021. 2. ??Osseous metastases in the left T11 pedicle, posterior left 10th rib, and right iliac crest are not appreciably changed although not well-evaluated on this non-optimized exam. Refer to dedicated bone scintigraphy imaging performed recently in November 2021. I have personally reviewed the images and the above interpretation and agree with the findings. Narrative 02/26/2022 13:39 EDT MR ABDOMEN W WO CONTRAST ??02/25/2022 4:45 PM Signs and Symptoms/Comments: ?? breast cancer Technique: Gz-lcd-yrz-of-phase, T2-weighted, diffusion weighted images were followed by dynamic gadolinium enhanced T1 fat-suppressed gradient echo images of the abdomen. Subtraction imaging performed. Comparison: MRI abdomen 11/23/2021, bone scan 11/23/21 Findings: Lower chest: There are bilateral breast prostheses. A nonenlarged lymph node along the left prostheses which previously demonstrated restricted diffusion is outside the eusjz-me-qlfa. Hepatobiliary: Numerous hepatic lesions demonstrating restricted diffusion and postcontrast hypointensity relative to the hepatic parenchyma are either smaller in size or less conspicuous compared to November 2021. For example: -Segment 1 lesion now measures 11 mm (b800 #180), previously 18 mm. -Segment 4A lesion now measures 6 mm (b800 #168), previously 11 mm. -Right hepatic dome lesion measures 6 mm (b800 #48), previously 14 mm. -Segment 8 lesion now measures 8 mm (b800 #120), previously 14 mm. Multiple other lesions on the diffusion-weighted images are less conspicuous compared to prior (for example b800 #84 compared to prior b800 #156). The gallbladder is normal. No biliary dilatation. Spleen, pancreas, adrenal glands: Unremarkable spleen. No pancreatic mass or duct dilatation. Unremarkable adrenal glands. Kidneys, proximal ureters: The kidneys enhance symmetrically. There are subcentimeter cysts in the right kidney. No suspicious renal lesion. No hydroureteronephrosis. Bowel: No bowel dilatation or wall thickening. Peritoneal cavity: No free fluid. Lymphovascular: A nonenlarged left crural node (b800 #144) is unchanged. No lymphadenopathy. The major arterial structures in the abdomen are unremarkable. The portal vein is patent. Abdominal wall: No bowel containing hernia. Musculoskeletal: The enhancing osseous lesion in the pedicle/posterior elements of the left T11 vertebral body is slightly smaller in size measuring 14 x 12 mm, previously 15 x 13 mm although there is significantly less enhancement within the lesion. The enhancing lesion in the right iliac crest is slightly smaller in size (coronal series 1101, #51) now measuring 20 x 25 mm, previously 24 x 29 mm The focus of enhancement along the posterior left 10th rib appears unchanged measuring 6-7 mm. Localizer: No additional findings. Procedure Note Richard Antonio MD - 02/26/2022 MR ABDOMEN W WO CONTRAST 02/25/2022 4:45 PM Signs and Symptoms/Comments: breast cancer Technique: Ks-itq-jat-of-phase, T2-weighted, diffusion weighted images were followedby dynamic gadolinium enhanced T1 fat-suppressed gradient echo images ofthe abdomen. Subtraction imaging performed. Comparison: MRI abdomen 11/23/2021, bone scan 11/23/21 Findings: Lower chest: There are bilateral breast prostheses. A nonenlarged lymphnode along the left prostheses which previously demonstrated restricteddiffusion is outside the dtmqd-hu-gquv. Hepatobiliary: Numerous hepatic lesions demonstrating restricted diffusion andpostcontrast hypointensity relative to the hepatic parenchyma are eithersmaller in size or less conspicuous compared to November 2021. For example: -Segment 1 lesion now measures 11 mm (b800 #180), previously 18 mm. -Segment 4A lesion now measures 6 mm (b800 #168), previously 11 mm. -Right hepatic dome lesion measures 6 mm (b800 #48), previously 14 mm. -Segment 8 lesion now measures 8 mm (b800 #120), previously 14 mm. Multiple other lesions on the diffusion-weighted images are lessconspicuous compared to prior (for example b800 #84 compared to prior b800#156). The gallbladder is normal. No biliary dilatation. Spleen, pancreas, adrenal glands: Unremarkable spleen. No pancreatic massor duct dilatation. Unremarkable adrenal glands. Kidneys, proximal ureters: The kidneys enhance symmetrically. There aresubcentimeter cysts in the right kidney. No suspicious renal lesion. Nohydroureteronephrosis. Bowel: No bowel dilatation or wall thickening. Peritoneal cavity: No free fluid. Lymphovascular: A nonenlarged left crural node (b800 #144) is unchanged.No lymphadenopathy. The major arterial structures in the abdomen areunremarkable. The portal vein is patent. Abdominal wall: No bowel containing hernia. Musculoskeletal: The enhancing osseous lesion in the pedicle/posterior elements of the leftT11 vertebral body is slightly smaller in size measuring 14 x 12 mm,previously 15 x 13 mm although there is significantly less enhancementwithin the lesion. The enhancing lesion in the right iliac crest is slightly smaller in size(coronal series 1101, #51) now measuring 20 x 25 mm, previously 24 x 29mm The focus of enhancement along the posterior left 10th rib appearsunchanged measuring 6-7 mm. Localizer: No additional findings. IMPRESSION 1. Numerous hepatic metastases have either decreased in size or becomeinconspicuous compared to November 2021. 2. Osseous metastases in the left T11 pedicle, posterior left 10th rib,and right iliac crest are not appreciably changed although notwell-evaluated on this non-optimized exam. Refer to dedicated bonescintigraphy imaging performed recently in November 2021. I have personally reviewed the images and the above interpretation andagree with the findings. Augustina Colin MD PhD IMG MRI ORDERABLES documented in this encounter Visit Diagnoses Diagnosis Metastatic breast cancer documented in this encounter Administered Medications Inactive Administered Medications - up to 3 most recent administrations Medication Order MAR Action Action Date Dose Rate Site gadoterate meglumine solution 1-30 mL 1-30 mL, intravenous, Once in imaging, 1 dose, Starting on Michelle 02/25/22 at 1642, Until Michelle 02/25/22 at 1725, Routine, Imaging Protocol Orders Given 02/25/2022 17:25 EDT 12 mL documented in this encounter Care Teams Gas Maker Relationship Specialty Start Date End Date Linda Blancas MD [address] [place] [address] PCP - General 01/06/11 Adolfo Carreno MD [address] [place] [address] [phone] General Surgery 04/26/19 Augustina Colin MD PhD [address] [place] [phone] Medical Oncology 04/26/19 documented as of this encounter
--- OUTSIDE RECORDS SUMMARY | 2024-03-20 14:50 | XMS_ITS | Encounter Summary ---
Author Organization [facility] Address [address] [place] [address] Care Team Providers Care Prime Broker Name Role Phone Linda Blancas MD Primary Care Provider [phone] Adolfo Carreno MD Unavailable [phone] Augustina Colin MD PhD Unavailable Unavailable Encounter Details Date Type Department Care Team (Late st Contact Info) Description 01/14/2022 Orders Only [facility] Hematology & Oncology - [facility] [address] [place] [address] Garima Boyce, SHELLEY Malignant neoplasm of right female breast, unspecified estrogen receptor status, unspecified site of breast (HCC-CMS) (HCC) (HCC-CMS) (Primary Dx) Social History [...] Progress Notes * Garima Boyce RN - 01/14/2022 1029 EDT Referral placed for [place] [facility]. documented in this encounter Plan of Treatment Upcoming Encounters Date Type Department Care Team (Late st Contact Info) Description 04/02/2024 10:30 EDT Appointment [facility] Interventional Radiology Unit [address] [place] [address] [phone] 04/02/2024 15:15 EDT Office Visit [facility] Surgical Oncology - [address] [phone] Adolfo Carreno MD [address] [place] [address] [phone] 04/05/2024 9:30 EDT Telemedicine [facility] - [facility] Palliative Care Services [address] [place] [address] [phone] Chichi Woods MD [address] [place] [address] [phone] 04/11/2024 15:00 EDT Telemedicine [facility] Hematology & Oncology - [address] [phone] Alisson Carreon MD [address] [place] [address] 2 [place] [phone] 04/13/2024 13:30 EDT Appointment [facility] Hematology & Oncology - [address] [address] 04/13/2024 14:00 EDT Appointment [facility] Hematology & Oncology - [address] [address] 04/16/2024 10:00 EST Telemedicine [facility] - [facility] Palliative Care Services [address] [place] [address] [phone] Chichi Woods MD [address] [place] [address] [phone] 04/24/2024 9:00 EST Appointment [facility] Radiology CT Outpatient - [address] [address] 04/24/2024 11:00 EST Appointment [facility] Breast Imaging - [facility] S [place] [address] [place], [place] 758071 04/27/2024 12:00 EST Appointment [facility] Hematology & Oncology [address] [phone] 05/02/2024 15:00 EST Telemedicine [facility] Hematology & Oncology - [address] [address] Alisson Carreon MD [address] [place], [place] [address]ili, Level 2 [place] [phone] 05/04/2024 10:15 EST Ancillary Procedure [facility] Cardiology [place] [place] [address] 05/04/2024 11:30 EST Appointment [facility] Hematology & Oncology - [address] [phone] 05/04/2024 12:00 EST Appointment [facility] Cancer Center Hematology & Oncology - [address] 990991 06/12/2024 13:00 EST [facility]ointment [facility] Radiology CT - [address] [phone] documented as of this encounter Visit Diagnoses Diagnosis Malignant neoplasm of right female breast, unspecified estrogen receptor status, unspecified site of breast ([facility])- Primary documented in this encounter Care Teams Prime Broker Relationship Specialty Start Date End Date Linda Blancas MD [facility] [address] [place] [address] PCP - General 01/06/11 Adolfo Carreno MD [address] [place] [address], [facility] 2 [place] [phone] General Surgery 04/26/19 Augustina Colin MD PhD [address] [place] [address] 2 [place] [phone] Medical Oncology 04/26/19 documented as of this encounter
--- OUTSIDE RECORDS SUMMARY | 2024-03-20 14:50 | XMS_ITS | Encounter Summary ---
Author Organization [facility] Address [address] [place] [address] Care Team Providers Care Painter Drum Name Role Phone Linda Blancas MD Primary Care Provider [phone] Adolfo Carreno MD Unavailable [phone] Augustina Colin MD PhD Unavailable Unavailable Reason for Visit * Reason Onset Date Comments Appointment Related 12/25/2021 Encounter Details Date Type Department Care Team (Late st Contact Info) Description 12/25/2021 Telephone [facility] Interventional Radiology - [address] [address] Johnson Kwon MD [address] [facility] Level 1 [place] [phone] Appointment Related Social History Tobacco Use Types [...] * Telephone Encounter - Linda Deluca - 12/25/2021 1157 EDT Sunshine called to say she met with her doctor and needs to have another liver BX, this time CT instead of US (according to [facility]). I told her the IR Coordinator would call her next week. documented in this encounter Plan of Treatment Upcoming Encounters Date Type Department Care Team (Late st Contact Info) Description 04/02/2024 10:30 EDT Appointment [facility] Interventional Radiology Unit [address] [place] [address] [phone] 04/02/2024 15:15 EDT Office Visit [facility] Surgical Oncology - [address] [phone] Adolfo Carreno MD 111 [facility], Level 2 [place] [phone] 04/05/2024 9:30 EDT Telemedicine [facility] - [facility] Palliative Care Services [address] [place], [place] [phone] Chichi Woods MD 111 [facility], [address] [phone] 04/11/2024 15:00 EDT Telemedicine [facility] Hematology & Oncology - [address] [phone] Alisson Carreon MD [address] [place] [address] 2 [place] [phone] 04/13/2024 13:30 EDT Appointment [facility] Hematology & Oncology - [address] [phone] 04/13/2024 14:00 EDT Appointment [facility] Hematology & Oncology - [address] [phone] 04/16/2024 10:00 EST Telemedicine [facility] - [facility] Palliative Care Services [address] [place] [address] [phone] Chichi Woods MD [address] [place] [address], [address] [phone] 04/24/2024 9:00 EST Appointment [facility] Radiology CT Outpatient - [address] [phone] 04/24/2024 11:00 EST Appointment [facility] Breast Imaging - [address] [phone] 04/27/2024 12:00 EST Appointment [facility] Hematology & Oncology - [address] 487461 05/02/2024 15:00 EST Telemedicine [facility] Hematology & Oncology - [address] [phone] Alisson Carreon MD [address] [place] [address], [facility] 2 [place] [phone] 05/04/2024 10:15 EST Ancillary Procedure [facility] Cardiology [place] [address] [place] [address] 05/04/2024 11:30 EST Appointment [facility] Center Hematology & Oncology - [address] [address] 05/04/2024 12:00 EST Appointment [facility] Hematology & Oncology [address] [address] 06/12/2024 13:00 EST Appointment [facility] Radiology CT - [address] 282541 documented as of this encounter Visit Diagnoses Not on filedocumented in this encounter Care Teams Painter Drum Relationship Specialty Start Date End Date Linda Blancas MD [facility] [address] [place] [address] PCP - General 01/06/11 Adolfo Carreno MD [address] [place] [address] [phone] General Surgery 04/26/19 Augustina Colin MD PhD [address] [place] [phone] Medical Oncology 04/26/19 documented as of this encounter
--- OUTSIDE RECORDS SUMMARY | 2024-03-20 14:50 | XMS_ITS | Encounter Summary ---
Author Organization [facility] Address [address] [place] [address] Care Team Providers Care Loss Claim Clerk Name Role Phone Linda Blancas MD Primary Care Provider [phone] Adolfo Carreno MD Unavailable [phone] Augustina Colin MD PhD Unavailable Unavailable Encounter Details Date Type Department Care Team (Late st Contact Info) Description 12/03/2021 Orders Only [facility] Interventional Radiology - Main [place] [address] [place] [address] Job Keyes, RN [address] [place] [address] Pre-procedure lab exam (Primary Dx) Social History Tobacco Use Types [...] [facility] Interventional Radiology Unit [address] [place] [address] [phone] 04/02/2024 15:15 EDT Office Visit [facility] Surgical Oncology - [address] [phone] Adolfo Carreno MD [address] [place] [address] 2 [place] [phone] 04/05/2024 9:30 EDT Telemedicine [facility] - [facility] Palliative Care Services [address] [place] [address] [phone] Chichi Woods MD [address] [place] [address] [phone] 04/11/2024 15:00 EDT Telemedicine [facility] Hematology & Oncology [address] [phone] Alisson Carreon MD [address] [place] [address] [phone] 04/13/2024 13:30 EDT Appointment [facility] Hematology & Oncology [address] [address] 04/13/2024 14:00 EDT Appointment [facility] Hematology & Oncology - [address] [phone] 04/16/2024 10:00 EST Telemedicine [facility] - [facility] Palliative Care Services [address] [place] [address] [phone] Chichi Woods MD [address] [place] [address], [address] [phone] 04/24/2024 9:00 EST Appointment [facility] Radiology CT Outpatient - [address] [phone] 04/24/2024 11:00 EST Appointment [facility] Breast Imaging - [address] 234001 04/27/2024 12:00 EST Appointment [facility] Hematology & Oncology - [address] [phone] 05/02/2024 15:00 EST Telemedicine [facility] Hematology & Oncology - [address] [phone] Alisson Carreon MD [address] [place] [address], Level [address] [place] [phone] 05/04/2024 10:15 EST Ancillary Procedure [facility] Cardiology - [place] [address] 05/04/2024 11:30 EST Appointment [facility] Hematology & Oncology - [address] 493251 05/04/2024 12:00 EST Appointment [facility] Hematology & Oncology [address] 105651 06/12/2024 13:00 EST Appointment [facility] Radiology CT - [address] [phone] documented as of this encounter Visit Diagnoses Diagnosis Pre-procedure lab exam- Primary Pre-procedural laboratory examination documented in this encounter Care Teams Loss Claim Clerk Relationship Specialty Start Date End Date Linda Blancas MD [address] [place] [address] 30 [place] [address] PCP - General 01/06/11 Adolfo Carreno MD [address] [place] [address] 2 [place] [phone] General Surgery 04/26/19 Augustina Colin MD PhD [address] [place] [phone] Medical Oncology 04/26/19 documented as of this encounter
--- OUTSIDE RECORDS SUMMARY | 2024-03-20 14:50 | XMS_ITS | Encounter Summary ---
Author Organization [facility] Address [address] [place] [address] Care Team Providers Care Veterinary Science Teacher Name Role Phone Linda Blancas MD Primary Care Provider [phone] Adolfo Carreno MD Unavailable [phone] Augustina Colin MD PhD Unavailable Unavailable Reason for Visit * Reason Comments Follow-up Encounter Details Date Type Department Care Team (Late st Contact Info) Description 01/13/2022 15:30 EDT Telemedicine [facility] Hematology & Oncology - Main [place] [address] [place], [place] [address] Augustina Colin, MD PhD Malignant neoplasm of [...] Notes * Augustina Colin MD PhD - 01/13/2022 1530 EDT REASON FOR OFFICE VISIT: ??Discussion [...] of ER+ DCIS. a. ??Ultrasound performed in [place]??identifying an irregular heterogeneous soft tissue mass measuring [...] breast tumor 07/07/17 and placement of tissue work counselor. ??1.9 cm tumor at time of surgery, [...] clinic to discuss biopsy results. She had a repeat interventional radiology biopsy on 01/08/2022. This time process was successful. She has questions about whether she could receive liver directed treatment. She started capecitabine about 7 weeks ago. No diarrhea but she already has hand symptoms. Her tumor marker is already lower. The hand symptoms are little bit better since changing to 1 week on 1 week off. ROS: A 10 point review of systems [...] hours. 1week on 1 week off. ??? DOXYLAMINE SUCCINATE (UNISOM ORAL) Take by mouth as needed. Takes half a tablet (Patient not taking: Reported on 01/08/2022) ??? gabapentin (NEURONTIN) 100 mg capsule Take 2 Caps by mouth 2 times daily. (Patient taking differently: Take 600 mg by mouth 2 times daily. Takes 300 mg qam and pm and 600 mg qhs) ??? ibuprofen (MOTRIN) 200 mg tablet Take 400 mg by mouth as needed. ??? MULTIVITS W-CA,FE,OTHER MIN (WOMEN'S DAILY FORMULA ORAL) Take by mouth daily. ??? mv-mn/C/glutamin/lysin/rsbq384 (AIRBORNE, ASCORBATE SODIUM, ORAL) Take by mouth [...] on 11/01/2016 (Patient not taking: Reported on 01/08/2022) No facility-administered medications prior to visit. Social [...] with results is: Hospital Outpatient Visit on 01/08/2022 Component Date Value Ref Range Status ? ? CA 27.29 01/08/2022 281.8 (A) <38.0 U/mL Final NOTE: Serum CA 27.29 concentration should not be interpreted as absolute evidence for the presence or absence of malignant disease. Assayed on Siemens ADVIA Centaur XPT using chemiluminescent technology. ??Values obtained by using different assay methods cannot be used interchangeably. ??? Sodium 01/08/2022 138 136 - 145 mmol/L Final ??? Potassium 01/08/2022 4.1 3.5 - 5.0 mmol/L Final ??? Chloride 01/08/2022 104 96 - 110 mmol/L Final ??? CO2 Total 01/08/2022 27 22 - 32 mmol/L Final ??? Glucose 01/08/2022 90 70 - 100 mg/dL Final ??? BUN 01/08/2022 17 10 - 26 mg/dL Final ??? Creatinine 01/08/2022 0.77 0.52 - 1.04 mg/dL Final ? ? eGFR 01/08/2022 88 >60 mL/min/1.73m2 Final ??? Total Protein 01/08/2022 7.0 6.3 - 8.2 g/dL Final ??? Albumin 01/08/2022 4.2 3.4 - 4.9 g/dL Final ??? Alkaline Phosphatase 01/08/2022 84 38 - 126 U/L Final ??? AST 01/08/2022 63 (A) 15 - 46 U/L Final ? ? ALT 01/08/2022 47 (A) <35 U/L Final ? ? Bilirubin, Total 01/08/2022 0.9 <1.4 mg/dL Final ??? Calcium 01/08/2022 8.8 8.5 - 10.5 mg/dL Final ??? Albumin/Globulin Ratio 01/08/2022 1.5 1.0 - 2.5 Final ??? Anion Gap 01/08/2022 7 5 - 14 Final ??? WBC 01/08/2022 6.84 4.00 - 12.40 K/cmm Final ??? RBC 01/08/2022 3.62 (A) 3.86 - 5.04 M/cmm Final ??? Hemoglobin 01/08/2022 13.7 11.6 - 15.2 gm/dL Final ??? HCT 01/08/2022 39.8 34.9 - 44.4 % Final ??? MCV 01/08/2022 110 (A) 81 - 98 fl Final ??? MCH 01/08/2022 37.8 (A) 26.7 - 33.3 pg Final ??? MCHC 01/08/2022 34.4 32.1 - 35.9 gm/dL Final ? ? RDW-CV 01/08/2022 13.2 <14.7 % Final ? ? RDW-SD 01/08/2022 53.7 (A) <50.4 fl Final ??? PLT 01/08/2022 195 141 - 377 K/cmm Final ??? MPV 01/08/2022 10.2 9.5 - 12.7 fl Final ??? Neutrophils 01/08/2022 49.7 % Final ??? Lymphocytes 01/08/2022 36.3 % Final ??? Monocytes 01/08/2022 9.8 % Final ??? Eosinophils 01/08/2022 3.4 % Final ??? Basophils 01/08/2022 0.7 % Final ??? Immature Grans 01/08/2022 0.1 % Final ??? Absolute Neutrophils 01/08/2022 3.40 2.20 - 8.85 K/cmm Final ??? Absolute Lymphocytes 01/08/2022 2.48 1.09 - 3.30 K/cmm Final ??? Absolute Monocytes 01/08/2022 0.67 0.10 - 0.80 K/cmm Final ??? Absolute Eosinophils 01/08/2022 0.23 0.03 - 0.61 K/cmm Final ??? Absolute Basophils 01/08/2022 0.05 0.01 - 0.11 K/cmm Final ??? Absolute Immature Grans 01/08/2022 0.01 0.00 - 0.06 K/cmm Final ??? Type of Differential: 01/08/2022 Auto Final ASSESSMENT: ??Ms Bernstein is a 61-year-old female with metastatic breast cancer.?? She had been currently receiving fluvesterant and palbociclb. The MR of the abdomen indicates progression of liver lesions. A biopsy was attempted 12/16/21 but did not identify malignancy. She had a repeat biopsy and and send for TEMPUS testing to assess for PI3K kinase mutation and the ability to use apelesib as well as other targetable changes. She has been on capecitabine for approximatley 7 weeks. She started with Capecitabine 1500mg am [id number] pm 2 weeks on 1 week off initially. She was experiencing hand symptoms and so we changed to the [facility] dosing of 1 week on 1 week off. Since she has progressive bone mets we will increae Zolendronic acid to every 3 mos for now. She takes a vitamin D supplement and we have encouraged weight bearing exercise. PLAN: 1. Capecitabine 1500mg am and 1500mg pm 1week on 1 week off. 2. Zoledronic acid q 3mo, next due Mar 2022 3. Follow up on Tempus testing 4. MR abdomen in Feb 5. FUR after MRI; CBCD, Vit D CMP at that time. TELEMEDICINE VIDEO VISIT Today's visit was provided through telemedicine video conferencing: I have reviewed the appropriateness of using video technology with the patient with regards to today's visit. The location of the patient : Home Patient location state: Visit Location State: [place] The location of the provider: Office Provider location state: Visit Location State: [place] The following people and their roles were present for today's visit: Appointment Provider: Augustina Colin MD PhD Augustina Colin MD PhD documented in this encounter Plan of Treatment Upcoming Encounters Date Type Department Care Team (Late st Contact Info) Description 04/02/2024 10:30 EDT Appointment [facility] Interventional Radiology Unit [address] [place] [address] [phone] 04/02/2024 15:15 EDT Office Visit [facility] Surgical Oncology - [address] [phone] Adolfo Carreno MD 111 [facility], Level 2 [place] [phone] 04/05/2024 9:30 EDT Telemedicine [facility] Palliative Care Services [address] [place], [place] [phone] Chichi Woods MD 111 [facility], [address] [place] [phone] 04/11/2024 15:00 EDT Telemedicine [facility] Hematology & Oncology - Main [address] [phone] Alisson Carreon MD [address] [place] [address] 2 [place] [phone] 04/13/2024 13:30 EDT Appointment [facility] Hematology & Oncology - [address] [phone] 04/13/2024 14:00 EDT Appointment [facility] Hematology & Oncology - [address] [phone] 04/16/2024 10:00 EST Telemedicine [facility] - [facility] Palliative Care Services [address] [place] [address] [phone] Chichi Woods MD [address] [place] [phone] 04/24/2024 9:00 EST Appointment [facility] Radiology CT Outpatient - [address] [id number] 04/24/2024 11:00 EST Appointment [facility] Breast Imaging - [facility] [address] [phone] 04/27/2024 12:00 EST Appointment [facility] Hematology & Oncology - [address] [phone] 05/02/2024 15:00 EST Telemedicine [facility] Hematology & Oncology - [address] [phone] Alisson Carreon MD [address] [place] [address], [facility] 2 [place] [phone] 05/04/2024 10:15 EST Ancillary Procedure [facility] Cardiology - [address] [place], [place] [phone] 05/04/2024 11:30 EST Appointment [facility] Hematology & Oncology - [address] [address] 05/04/2024 12:00 EST Appointment [facility] Hematology & Oncology - [address] [address] 06/12/2024 13:00 EST Appointment [facility] Radiology CT - [address] [address] documented as of this encounter Visit Diagnoses Diagnosis Malignant neoplasm of right female breast, unspecified estrogen receptor status, unspecified site of breast ([facility])- Primary documented in this encounter Discontinued Medications Medication Sig Discontinue Reason Start Date End Da te ondansetron (ZOFRAN-ODT) 8 mg disintegrating tablet Take 1 Tablet by mouth every 8 hours as needed for Nausea. Patient Stopped Taking 11/30/2021 01/13/2022 zolpidem (AMBIEN) 5 mg tablet Take 5 mg by mouth at bedtime as needed for Sleep. Reported on 11/01/2016 Patient Stopped Taking 01/13/2022 DOXYLAMINE SUCCINATE (UNISOM ORAL) Take by mouth as needed. Takes half a tablet Patient Stopped Taking 02/02/2011 01/13/2022 documented as of this encounter Care Teams Veterinary Science Teacher Relationship Specialty Start Date End Date Linda Blancas MD [address] [place] [address] 30 [place] [address] PCP - General 01/06/11 Adolfo Carreno MD [address] [place] [phone] General Surgery 04/26/19 Augustina Colin MD PhD [address] [place] [phone] Medical Oncology 04/26/19 documented as of this encounter
--- OUTSIDE RECORDS SUMMARY | 2024-03-20 14:50 | XMS_ITS | Encounter Summary ---
Author Organization [facility] Address [address] [place] [address] Care Team Providers Care Process Eng Name Role Phone Linda Blancas MD Primary Care Provider [phone] Adolfo Carreno MD Unavailable [phone] Augustina Colin MD PhD Unavailable Unavailable Reason for Visit * Reason Onset Date Comments Medications Refill 01/05/2022 Encounter Details Date Type Department Care Team (Late st Contact Info) Description 01/05/2022 Telephone [facility] Hematology & Oncology - Main [place] [address] [place], [place] [address] Augustina Cloin, PhD Medications Refill Social History Tobacco Use [...] encounter Miscellaneous Notes * Telephone Encounter - Roxanne Martin - 01/05/2022 1111 EDT Medication Request Medication: Capecitabine 500mg Tabs Medication refill: yes Medication dose change: no Refill due: 01/05/22 Date of last fill: 12/17/21 Pharmacy: [facility] Next appt: 01/13/2022 documented in this encounter Plan of Treatment Upcoming Encounters Date Type Department Care Team (Late st Contact Info) Description 04/02/2024 10:30 EDT Appointment [facility] Interventional Radiology Unit [address] [place] [address] [phone] 04/02/2024 15:15 EDT Office Visit [facility] Surgical Oncology - [address] [phone] Adolfo Carreno MD 111 [facility], [facility] 2 [place] [phone] 04/05/2024 9:30 EDT Telemedicine [facility] Palliative Care Services [address] [place] [address] [phone] Chichi Woods MD [address] [place] [phone] 04/11/2024 15:00 EDT Telemedicine [facility] Hematology & Oncology - [address] [phone] Alisson Carreon MD [address] [place] [address], Level 2 [place] [phone] 04/13/2024 13:30 EDT Appointment [facility] Hematology & Oncology - [address] [phone] 04/13/2024 14:00 EDT Appointment [facility] Hematology & Oncology - [address] [phone] 04/16/2024 10:00 EST Telemedicine [facility] - [facility] Palliative Care Services [address] [place] [address] [phone] Chichi Woods MD [address] [place] [address], [address] [phone] 04/24/2024 9:00 EST Appointment [facility] Radiology CT Outpatient - [address] [phone] 04/24/2024 11:00 EST Appointment [facility] Breast Imaging - [facility] S [address] 401241 04/27/2024 12:00 EST Appointment [facility] Hematology & Oncology - [address] [phone] 05/02/2024 15:00 EST Telemedicine [facility] Hematology & Oncology - [address] [phone] Alisson Carreon MD [address] [place] [address], Level 2 [place] [phone] 05/04/2024 10:15 EST Ancillary Procedure [facility] Cardiology - [address] [place], [place] [phone] 05/04/2024 11:30 EST Appointment [facility] Hematology & Oncology [address] [address] 05/04/2024 12:00 EST Appointment [facility] Hematology & Oncology [address] [address] 06/12/2024 13:00 EST Appointment [facility] Radiology CT - [address] [address] documented as of this encounter Visit Diagnoses Not on filedocumented in this encounter Additional Health Concerns Infection Onset Date Last Indicated Resolved Time R/O COVID-19 12/12/2023 12/12/2023 12/12/2023 15:3 5 EDT R/O COVID-19 01/08/2024 01/08/2024 01/08/2024 18:2 6 EDT R/O COVID-19 01/16/2024 01/16/2024 01/16/2024 17:5 0 EDT documented as of this encounter Care Teams Process Eng Relationship Specialty Start Date End Date Linda Blancas MD [address] [place] [address] PCP - General 01/06/11 Adolfo Carreno MD [address] [place] [phone] General Surgery 04/26/19 Augustina Colin MD PhD [address] [place] [phone] Medical Oncology 04/26/19 documented as of this encounter
--- OUTSIDE RECORDS SUMMARY | 2024-03-20 14:51 | XMS_ITS | Encounter Summary ---
Author Organization [facility] Address [address] [place] [address] Care Team Providers Care Registered Land Surveyor Name Role Phone Linda Blancas MD Primary Care Provider [phone] Adolfo Carreno MD Unavailable [phone] Augustina Colin MD PhD Unavailable Unavailable Reason for Visit * Reason Onset Date Comments Prior Auth, Medication 11/27/2021 Capecitab ine Encounter Details Date Type Department Care Team (Late st Contact Info) Description 11/27/2021 Telephone [facility] Cancer Center Hematology & Oncology - Main [place] [address] [place], [place] [address] Augustina Colin, PhD Prior Auth, Medication (Capecitabine ) Social History Tobacco Use Types Packs/Day [...] 21 days. 84 Tablet 3 11/30/2021 01/05/2022 documented in this encounter Miscellaneous Notes * Telephone Encounter - Sandhya Eli - 11/27/2021 1622 EDT Prior Authorization Not Required Medication: Capecitabine 1500mg q am and 1500mg q pm for 14 days, 7 days off Insurance Response: medication covered under plan Pharmacy: [facility]x Notes: Prior Authorization Submission Process - Routine Medication: Capecitabine 1500mg q am and 1500mg q pm for 14 days, 7 days off Insurance: [employer] Insurance Type: Commercial Date PA Request Received: 11/26/2021 PA Submission Date: 11/27/2021 [facility] Ferrell: Notes: patient switching from Ibrance to Capecitabine Submitted by: Sandhya Phone: [phone] documented in this encounter Plan of Treatment Upcoming Encounters Date Type Department Care Team (Late st Contact Info) Description 04/02/2024 10:30 EDT Appointment [facility] Interventional Radiology Unit [address] [place] [address] [phone] 04/02/2024 15:15 EDT Office Visit [facility] Surgical Oncology - [address] [phone] Adolfo Carreno MD 111 [facility], [facility] 2 [place] [phone] 04/05/2024 9:30 EDT Telemedicine [facility] Palliative Care Services [address] [place] [address] [phone] Chichi Woods MD [address] [place] [phone] 04/11/2024 15:00 EDT Telemedicine [facility] Hematology & Oncology - [address] [phone] Alisson Carreon MD [address] [place] [address], Level 2 [place] [phone] 04/13/2024 13:30 EDT Appointment [facility] Hematology & Oncology [address] [phone] 04/13/2024 14:00 EDT Appointment [facility] Hematology & Oncology [address] [phone] 04/16/2024 10:00 EST Telemedicine [facility] Palliative Care Services [address] [place] [address] 154011 Chichi Woods MD [address] [place] [phone] 04/24/2024 9:00 EST Appointment [facility] Radiology CT Outpatient - [address] [id number] 04/24/2024 11:00 EST Appointment [facility] Breast Imaging - [address] [phone] 04/27/2024 12:00 EST Appointment [facility] Hematology & Oncology - [address] [phone] 05/02/2024 15:00 EST Telemedicine [facility] Hematology & Oncology [address] [phone] Alisson Carreon MD [address] [place] [address], Level 2 [place] [phone] 05/04/2024 10:15 EST Ancillary Procedure [facility] Cardiology - [address] [place], [place] [phone] 05/04/2024 11:30 EST Appointment [facility] Hematology & Oncology [address] [phone] 05/04/2024 12:00 EST Appointment [facility] Hematology & Oncology [address] 577891 06/12/2024 13:00 EST Appointment [facility] Radiology CT - [address] [phone] documented as of this encounter Visit Diagnoses Not on filedocumented in this encounter Discontinued Medications Medication Sig Discontinue Reason Start Date End Da te capecitabine (XELODA) 500 mg tablet Take 3 Tablets by mouth 2 times daily. Reorder 11/30/2021 11/30/2021 documented as of this encounter Additional Health Concerns Infection Onset Date Last Indicated Resolved Time R/O COVID-19 12/12/2023 12/12/2023 12/12/2023 15:3 5 EDT R/O COVID-19 01/08/2024 01/08/2024 01/08/2024 18:2 6 EDT R/O COVID-19 01/16/2024 01/16/2024 01/16/2024 17:5 0 EDT documented as of this encounter Care Teams Registered Land Surveyor Relationship Specialty Start Date End Date Linda Blancas MD [facility] [address] [place] [address] PCP - General 01/06/11 Adolfo Carreno MD 111 [facility] 2 [place] [phone] General Surgery 04/26/19 Augustina Colin MD PhD 111 [facility] 2 [place] [phone] Medical Oncology 04/26/19 documented as of this encounter
--- OUTSIDE RECORDS SUMMARY | 2024-03-20 14:51 | XMS_ITS | Encounter Summary ---
Author Organization [facility] Address [address] [place] [address] Care Team Providers Care Panel Coverer Name Role Phone Linda Blancas MD Primary Care Provider [phone] Adolfo Carreno MD Unavailable [phone] Augustina Colin MD PhD Unavailable Unavailable Encounter Details Date Type Department Care Team (Late st Contact Info) Description 11/27/2021 Specialty Pharmacy [facility] [address] [place] [address] [place], [facility] Social History Tobacco Use Types [...] encounter Progress Notes * Ingrid Goldman - 11/27/202114 EDT Specialty Pharmacy Non-Outreach Documentation Medication: Switch from Ibrance to Capecitabine Clinic: Onc Reason for Encounter: Outreach Notes: Refill requested for Capecitabine Follow up date: 11/30/21 Follow up reason: [facility] * Sandhya Eli - 11/27/2021913 EDT Specialty Pharmacy Non-Outreach Documentation Medication: Capecitabine Clinic: [facility] Hem/Onc Reason for Encounter: outreach Notes: patient switching from Ibrance to Capecitabine. Pending rx and clinical Follow up date: 11/30/2021 Follow up reason: next outreach. Once new script for Capecitabine, coordinate with [facility] for med education documented in this encounter Plan of Treatment Upcoming Encounters Date Type Department Care Team (Late st Contact Info) Description 04/02/2024 10:30 EDT Appointment [facility] Interventional Radiology Unit [address] [place] [address] 04/02/2024 15:15 EDT Office Visit [facility] Surgical Oncology - [facility] [address] [place] [address] Adolfo Carreno MD 111 [facility], Level [address] [place] [phone] 04/05/2024 9:30 EDT Telemedicine [facility] Palliative Care Services [address] [place] [address] Chichi Woods MD 111 [facility], [address] [phone] 04/11/2024 15:00 EDT Telemedicine [facility] Hematology & Oncology - [address] 192881 Alisson Carreon MD [address] [place] [address] 2 [place] [phone] 04/13/2024 13:30 EDT Appointment [facility] Hematology & Oncology - [address] [phone] 04/13/2024 14:00 EDT Appointment [facility] Hematology & Oncology [address] [phone] 04/16/2024 10:00 EST Telemedicine [facility] - [facility] Palliative Care Services [address] [place] [address] [phone] Chichi Woods MD [address] [place] [address], [place] [address] [place] [phone] 04/24/2024 9:00 EST Appointment [facility] Radiology CT Outpatient - [address] [phone] 04/24/2024 11:00 EST Appointment [facility] Breast Imaging - [address] [phone] 04/27/2024 12:00 EST Appointment [facility] Hematology & Oncology - [address] [phone] 05/02/2024 15:00 EST Telemedicine [facility] Hematology & Oncology - [address] [phone] Alisson Carreon MD [address] [place] [address] 2 [place] [phone] 05/04/2024 10:15 EST Ancillary Procedure [facility] Cardiology - [place] [address] 05/04/2024 11:30 EST Appointment [facility] Hematology & Oncology [address] [address] 05/04/2024 12:00 EST Appointment [facility] Hematology & Oncology [address] [address] 06/12/2024 13:00 EST Appointment [facility] Radiology CT - [address] [phone] documented as of this encounter Visit Diagnoses Not on filedocumented in this encounter Care Teams Panel Coverer Relationship Specialty Start Date End Date Linda Blancas MD [facility] [address] [place] [address] PCP - General 01/06/11 Adolfo Carreno MD [address] [place] [phone] General Surgery 04/26/19 Augustina Colin MD PhD [address] [place] [phone] Medical Oncology 04/26/19 documented as of this encounter
--- OUTSIDE RECORDS SUMMARY | 2024-03-20 14:51 | XMS_ITS | Encounter Summary ---
Author Organization [facility] Address [address] [place] [address] Care Team Providers Care Mason Tender Restoration Labor Name Role Phone Linda Blancas MD Primary Care Provider [phone] Adolfo Carreno MD Unavailable [phone] Augustina Colin MD PhD Unavailable Unavailable Encounter Details Date Type Department Care Team (Latest Contact Info) Description 11/26/2021 12:30 EDT Phlebotomy Only [facility] Hematology & Oncology - Main [place] [address] [place] [address] Blood Doctor, [facility] Hem Onc Metastatic breast cancer (HCC-CMS) (HCC) (HCC-CMS) (Primary [...] as of this encounter Progress Notes * Patricia Rodriguez MA - 11/26/2021 1230 EDT Venipuncture performed for Dittus Per orders of Dittus Number of attempts 1 right ac PC I was supervised by John who was present and immediately available in the office suite. PATRICIA RODRIGUEZ MA 11/26/2021 12:29 documented in this encounter Plan of Treatment Upcoming Encounters Date Type Department Care Team (Late st Contact Info) Description 04/02/2024 10:30 EDT Appointment [facility] Interventional Radiology Unit [address] [place] [address] [phone] 04/02/2024 15:15 EDT Office Visit [facility] Surgical Oncology - [address] [phone] Adolfo Carreno MD 111 [facility] 2 [place] [phone] 04/05/2024 9:30 EDT Telemedicine [facility] Palliative Care Services [address] [place], [place] [phone] Chichi Woods MD 111 [facility], [address] [phone] 04/11/2024 15:00 EDT Telemedicine [facility] Hematology & Oncology - [facility] [address] [place], [place] [phone] Alisson Carreon MD [address] [place] [address], Level 2 [place] [phone] 04/13/2024 13:30 EDT Appointment [facility] Hematology & Oncology - [address] [phone] 04/13/2024 14:00 EDT Appointment [facility] Hematology & Oncology - [address] [phone] 04/16/2024 10:00 EST Telemedicine [facility] - [facility] Palliative Care Services [address] [place] [address] [phone] Chichi Woods MD [address] [place] [address], [address] [phone] 04/24/2024 9:00 EST Appointment [facility] Radiology CT Outpatient - [address] [phone] 04/24/2024 11:00 EST Appointment [facility] Breast Imaging - [facility] S [address] 810131 04/27/2024 12:00 EST Appointment [facility] Hematology & Oncology - [address] [phone] 05/02/2024 15:00 EST Telemedicine [facility] Hematology & Oncology - [address] 115071 Alisson Carreon MD [address] [place] [address], Level 2 [place] [phone] 05/04/2024 10:15 EST Ancillary Procedure [facility] Cardiology - [address] [place], [place] [phone] 05/04/2024 11:30 EST Appointment [facility] Hematology & Oncology - [address] [address] 05/04/2024 12:00 EST Appointment [facility] Hematology & Oncology - [address] [address] 06/12/2024 13:00 EST Appointment [facility] Radiology CT - [address] [address] documented as of this encounter Procedures Procedure Name Priority Date/Time Associated Diagnosis Comments DIFFERENTIAL, AUTOMATED MANUAL Today 11/26/2021 12:28 EDT Metastatic breast cancer (HCC-CMS) (HCC) (HCC-CMS) COMPREHENSIVE METABOLIC PANEL (ONCOLOGY USE ONLY-INC MG) STAT 11/26/2021 12:28 EDT Metastatic breast cancer (HCC-CMS) (HCC) (HCC-CMS) CA 27.29 Routine 11/26/2021 12:28 EDT Metastatic breast cancer (HCC-CMS) (HCC) (HCC-CMS) COMPLETE BLOOD COUNT AND DIFFERENTIAL STAT 11/26/2021 12:28 EDT Metastatic breast cancer (HCC-CMS) (HCC) (HCC-CMS) documented in this encounter Results * (ABNORMAL) DIFFERENTIAL, AUTOMATED MANUAL (11/26/2021 12:28 EDT) % Neutrophils 51.3 % 11/26/2021 13:32 [facility] % Lymphocytes 40.0 % 11/26/2021 13:32 [facility] % Atypical Lymphocytes 0.9 % 11/26/2021 13:32 [facility] % Monocytes 2.6 % 11/26/2021 13:32 [facility] % Eosinophils 1.7 % 11/26/2021 13:32 [facility] % Basophils 3.5 % 11/26/2021 13:32 [facility] Absolute Neutrophils 2.34 2.20 - 8.85 K/cmm 11/26/2021 13:32 EDT [facility] Absolute Lymphocytes 1.82 1.09 - 3.30 K/cmm 11/26/2021 13:32 EDT [facility] Absolute Atypical Lymphocytes 0.04 K/cmm 11/26/2021 13:32 EDT [facility] Absolute Monocytes 0.12 0.10 - 0.80 K/cmm 11/26/2021 13:32 EDT [facility] Absolute Eosinophils 0.08 0.03 - 0.61 K/cmm 11/26/2021 13:32 EDT [facility] ABS Basophils 0.16(H) 0.01 - 0.11 K/cm 11/26/2021 13:32 EDT [facility] Blood VENOUS BLOOD / Unknown Venipuncture / Unknown 11/26/2021 12:28 EDT 11/26/2021 12:35 EDT Augustina Colin MD PhD HEMATOLOGY & PF4 ORD ERABLES Performing Organization Address [facility] Co de Phone Number [facility] [address] [place] [address] * (ABNORMAL) CA 27.29 (11/26/2021 12:28 EDT) CA 27.29 377.9(H) <38.0 U/mL 11/27/2021 8:55 EDT [facility] Comment: NOTE: Serum CA 27.29 concentration should not be interpreted as absolute evidence for the presence or absence of malignant disease. Assayed on Siemens ADVIA Centaur XPT using chemiluminescent technology. ??Values obtained by using different assay methods cannot be used interchangeably. Blood VENOUS BLOOD / Unknown Venipuncture / Unknown 11/26/2021 12:28 EDT 11/26/2021 12:31 EDT Augustina Colin MD PhD CHEMISTRY & BLOOD GA S ORDERABLES Performing Organization Address [facility] Co de Phone Number [facility] [address] [place] [address] * (ABNORMAL) COMPLETE BLOOD COUNT AND DIFFERENTIAL (11/26/2021 12:28 EDT) WBC 4.56 4.00 - 12.40 K/cmm 11/26/2021 13:00 [facility] RBC 3.36(L) 3.86 - 5.04 M/cmm 11/26/2021 13:00 [facility] Hemoglobin 12.6 11.6 - 15.2 gm/dL 11/26/2021 13:00 T [facility] HCT 36.4 34.9 - 44.4 % 11/26/2021 13:00 [facility] MCV 108(H) 81 - 98 fl 11/26/2021 13:00 [facility] MCH 37.5(H) 26.7 - 33.3 pg 11/26/2021 13:00 [facility] MCHC 34.6 32.1 - 35.9 gm/dL 11/26/2021 13:00 [facility] RDW-CV 13.2 <14.7 % 11/26/2021 13:00 [facility] RDW-SD 52.2(H) <50.4 fl 11/26/2021 13:00 [facility] PLT 216 141 - 377 K/cmm 11/26/2021 13:00 [facility] MPV 9.8 9.5 - 12.7 fl 11/26/2021 13:00 [facility] Type of Differential: Manual 11/26/2021 13:00 [facility] Blood VENOUS BLOOD / Unknown Venipuncture / Unknown 11/26/2021 12:28 EDT 11/26/2021 12:35 EDT Augustina Colin MD PhD PACKAGES & DNA PROBE ORDERABLES [facility] [address] [place] [address] * COMPREHENSIVE METABOLIC PANEL (ONCOLOGY USE ONLY-INC MG) (11/26/2021 12:28 ED) Sodium 141 136 - 145 mmol/L 11/26/2021 12:55 [facility] Potassium 4.2 3.5 - 5.0 mmol/L 11/26/2021 12:55 [facility] Chloride 106 96 - 110 mmol/L 11/26/2021 12:55 [facility] CO2 Total 28 22 - 32 mmol/L 11/26/2021 12:55 [facility] Glucose 70 70 - 100 mg/dL 11/26/2021 12:55 [facility] BUN 25 10 - 26 mg/dL 11/26/2021 12:55 [facility] Creatinine 0.78 0.52 - 1.04 mg/dL 11/26/2021 12:55 [facility] eGFR 87 >60 mL/min/1.7 3m2 11/26/2021 12:55 [facility] Total Protein 7.0 6.3 - 8.2 g/dL 11/26/2021 12:55 [facility] Albumin 4.2 3.4 - 4.9 g/dL 11/26/2021 12:55 [facility] Alkaline Phosphatase 78 38 - 126 U/L 11/26/2021 12:55 [facility] AST 35 15 - 46 U/L 11/26/2021 12:55 [facility] ALT 23 <35 U/L 11/26/2021 12:55 [facility] Bilirubin, Total <0.5 <1.4 mg/dL 11/27/19 12:55 [facility] Calcium 9.1 8.5 - 10.5 mg/dL 11/26/2021 12:55 [facility] Magnesium 2.0 1.7 - 2.8 mg/dL 11/26/2021 12:55 [facility] Albumin/Globulin Ratio 1.5 1.0 - 2.5 11/26/2021 12:55 [facility] Anion Gap 7 5 - 14 11/26/2021 12:55 EDT [facility] Blood VENOUS BLOOD / Unknown Venipuncture / Unknown 11/26/2021 12:28 EDT 11/26/2021 12:31 EDT Augustina Colin MD PhD CHEMISTRY & BLOOD GA S ORDERABLES [facility] [address] [place] [address] documented in this encounter Visit Diagnoses Diagnosis Metastatic breast cancer- Primary documented in this encounter Care Teams Mason Tender Restoration Labor Relationship Specialty Start Date End Date Linda Blancas MD [facility] [address] [place], [place] [address] PCP - General 01/06/11 Adolfo Carreno MD [address] [place] [address] 2 [place] [address] General Surgery 04/26/19 Augustina Colin MD PhD [address] [place] [address] 2 [place] [phone] Medical Oncology 04/26/19 documented as of this encounter
--- OUTSIDE RECORDS SUMMARY | 2024-03-20 14:51 | XMS_ITS | Encounter Summary ---
Author Organization [facility] Address [address] [place] [address] Care Team Providers Care Top Lift And Automatic Window Repairer Name Role Phone Linda Blancas MD Primary Care Provider [phone] Adolfo Carreno MD Unavailable [phone] Augustina Colin MD PhD Unavailable Unavailable Encounter Details Date Type Department Care Team (Late st Contact Info) Description 10/30/2021 Specialty Pharmacy [facility] Ambulatory [facility] - [facility] [address] [place], [place] [id number] [place], [facility] Social History Tobacco Use Types Packs/Day Years [...] Appointment [facility] Interventional Radiology Unit [address] [place] [address] [phone] 04/02/2024 15:15 EDT Office Visit [facility] Surgical Oncology - [address] [phone] Adolfo Carreno MD [address] [place] [phone] 04/05/2024 9:30 EDT Telemedicine [facility] - [facility] Palliative Care Services [address] [place] [address] [phone] Chichi Woods MD [address] [place] [phone] 04/11/2024 15:00 EDT Telemedicine [facility] Hematology & Oncology [address] 199801 Alisson Carreon MD [address] [place] [phone] 04/13/2024 13:30 EDT Appointment [facility] Hematology & Oncology [address] [phone] 04/13/2024 14:00 EDT Appointment [facility] Hematology & Oncology [address] 125651 04/16/2024 10:00 EST Telemedicine [facility] - [facility] Palliative Care Services [address] [place] [address] [phone] Chichi Woods MD [address] [place] [address], [address] [place] [phone] 04/24/2024 9:00 EST Appointment [facility] Radiology CT Outpatient - [address] [phone] 04/24/2024 11:00 EST Appointment [facility] Breast Imaging - [facility] S [place] 1 [place], [place] 699[address] 04/27/2024 12:00 EST Appointment [facility] Hematology & Oncology - [address] [phone] 05/02/2024 15:00 EST Telemedicine [facility] Hematology & Oncology - [address] [phone] Alisson Carreon MD [address] [place] [address], Level 2 [place] [phone] 05/04/2024 10:15 EST Ancillary Procedure [facility] Cardiology - [address] [place], [place] [phone] 05/04/2024 11:30 EST Appointment [facility] Hematology & Oncology - [address] [phone] 05/04/2024 12:00 EST Appointment [facility] Hematology & Oncology [address] [phone] 06/12/2024 13:00 EST Appointment [facility] Radiology CT - [address] [phone] documented as of this encounter Visit Diagnoses Not on filedocumented in this encounter Care Teams Top Lift And Automatic Window Repairer Relationship Specialty Start Date End Date Linda Blancas MD [facility] [address] [place] [address] PCP - General 01/06/11 Adolfo Carreno MD [address] [place] [address], [facility] 2 [place] [phone] General Surgery 04/26/19 Augustina Colin MD PhD [address] [place] [address], [address] [phone] Medical Oncology 04/26/19 documented as of this encounter
--- OUTSIDE RECORDS SUMMARY | 2024-03-20 14:51 | XMS_ITS | Encounter Summary ---
Author Organization [facility] Address [address] [place] [address] Care Team Providers Care Senior Asset Manager Name Role Phone Linda Blancas MD Primary Care Provider [phone] Adolfo Carreno MD Unavailable Augustina Colin MD PhD Unavailable Unavailable Encounter Details Date Type Department Care Team (Late st Contact Info) Description 11/26/2021 Orders Only [facility] Cancer Center Hematology & Oncology - [facility] [address] [place] [address] Garima Boyce RN Metastatic breast cancer (HCC-CMS) (HCC) (HCC-CMS) (Primary Dx); Liver metastasis (HCC-CMS) (HCC) (HCC-CMS) Social History Tobacco Use [...] Contact Info) Description 04/02/2024 10:30 EDT Appointment [facility] Interventional Radiology Unit [address] [place] [address] [phone] 04/02/2024 15:15 EDT Office Visit [facility] Surgical Oncology - [address] [phone] Adolfo Carreno MD [address] [place] [address] 2 [place] [phone] 04/05/2024 9:30 EDT Telemedicine [facility] - [facility] Palliative Care Services [address] [place] [address] [phone] Chichi Woods MD [address] [place] [address], [address] [phone] 04/11/2024 15:00 EDT Telemedicine [facility] Hematology & Oncology [address] [phone] Alisson Carreon MD [address] [place] [address] 2 [place] [phone] 04/13/2024 13:30 EDT Appointment [facility] Hematology & Oncology [address] [phone] 04/13/2024 14:00 EDT Appointment [facility] Hematology & Oncology - [address] [phone] 04/16/2024 10:00 EST Telemedicine [facility] - [facility] Palliative Care Services [address] [place] [address] Chichi Woods MD 111 [facility], [address] [phone] 04/24/2024 9:00 EST Appointment [facility] Radiology CT Outpatient - [address] [phone] 04/24/2024 11:00 EST Appointment [facility] Breast Imaging - [facility] S [place] [address] [place], [place] [address] 04/27/2024 12:00 EST Appointment [facility] Hematology & Oncology - [address] [phone] 05/02/2024 15:00 EST Telemedicine [facility] Hematology & Oncology - [address] [phone] Alisson Carreon MD [address] [place] [address], Level [address] [place] [phone] 05/04/2024 10:15 EST Ancillary Procedure [facility] Cardiology - [place] [address] 05/04/2024 11:30 EST Appointment [facility] Hematology & Oncology - [address] [phone] 05/04/2024 12:00 EST Appointment [facility] Hematology & Oncology - [address] [address] 06/12/2024 13:00 EST [facility] Rad[facility] - [address] [phone] documented as of this encounter Visit Diagnoses Diagnosis Metastatic breast cancer- Primary Liver metastasis Secondary malignant neoplasm of liver documented in this encounter Care Teams Senior Asset Manager Relationship Specialty Start Date End Date Linda Blancas MD [facility] [address] [place] [address] PCP - General 01/06/11 Adolfo Crareno MD [address] [place] [phone] General Surgery 04/26/19 Augustina Colin MD PhD [address] [place] [phone] Medical Oncology 04/26/19 documented as of this encounter
--- OUTSIDE RECORDS SUMMARY | 2024-03-20 14:51 | XMS_ITS | Encounter Summary ---
Author Organization [facility] Address [address] [place] [address] Care Team Providers Care Doughnut Icer Name Role Phone Linda Blancas MD Primary Care Provider [phone] Adolfo Carreno MD Unavailable [phone] Augustina Colin MD PhD Unavailable Unavailable Reason for Referral * Radiology Services (Routine/Next Available) - Closed Specialty Diagnoses / Procedures [facility] Referred To Contact Radiology Diagnoses Malignant neoplasm of right female breast, unspecified estrogen receptor status, unspecified site of breast ([facility]) Procedures MR ABDOMEN W WO CONTRAST Augustina Colin MD PhD [facility] Referral ID Status Reason Start Date Expiration Date Visits Re quested Visits Authorized [id number] Closed 11/12/2021 05/11/2022 1 1 Reason for Visit * Radiology Services (Routine/Next Available) - Closed Specialty Diagnoses / Procedures [facility] Referred To Contact Radiology Diagnoses Malignant neoplasm of right female breast, unspecified estrogen receptor status, unspecified site of breast ([facility]) Procedures MR ABDOMEN W WO CONTRAST Augustina Colin MD PhD [facility] Referral ID Status Reason Start Date Expiration Date Visits Re quested Visits Authorized [id number] Closed 11/12/2021 05/11/2022 1 1 Encounter Details Date Type Department Care Team (Latest Contact Info) Description 11/23/2021 13:29 EDT - 11/23/2021 23:59 EDT Hospital Encounter [address] [facility] [address] [place] [address] Malignant neoplasm of right female breast, unspecified estrogen receptor status, unspecified site of breast ([facility]) ([facility]) ([facility]) Discharge Disposition: Home or Self Care [...] by mouth daily. 90 Tab 3 08/16/2012 DOXYLAMINE SUCCINATE (UNISOM ORAL) Take by mouth as needed. Takes half a tablet 02/02/2011 01/13/2022 gabapentin (NEURONTIN) 100 mg capsule Take 2 Caps by mouth 2 times daily. 360 Cap 3 08/16/2012 12/14/2023 ibuprofen (MOTRIN) 200 mg tablet Take 2 Tablets by mouth as needed. 12/07/2023 mv-mn/C/glutamin/lysin /enbl357 (AIRBORNE, ASCORBATE SODIUM, ORAL) Take by mouth [...] Appointment [facility] Interventional Radiology Unit [address] [place] [address] [id number] 04/02/2024 15:15 EDT Office Visit [facility] Surgical Oncology - [address] [phone] Adolfo Carreno MD 111 [facility], Level 2 [place] [phone] 04/05/2024 9:30 EDT Telemedicine [facility] - [facility] Palliative Care Services [address] [place] [address] [phone] Chichi Woods MD 111 [facility], [address] [phone] 04/11/2024 15:00 EDT Telemedicine [facility] Hematology & Oncology - [address] [phone] Alisson Carreon MD [address] [place] [address] 2 [place] [phone] 04/13/2024 13:30 EDT Appointment [facility] Hematology & Oncology - [address] [phone] 04/13/2024 14:00 EDT Appointment [facility] Hematology & Oncology [address] [phone] 04/16/2024 10:00 EST Telemedicine [facility] - [facility] Palliative Care Services [address] [place] [address] [phone] Chichi Woods MD [address] [place] [phone] 04/24/2024 9:00 EST Appointment [facility] Radiology CT Outpatient - [address] [id number] 04/24/2024 11:00 EST Appointment [facility] Breast Imaging - [address] [phone] 04/27/2024 12:00 EST Appointment [facility] Hematology & Oncology - [address] [phone] 05/02/2024 15:00 EST Telemedicine [facility] Hematology & Oncology - [address] [phone] Alisson Carreon MD [address] [place] [address], [facility] 2 [place] [phone] 05/04/2024 10:15 EST Ancillary Procedure [facility] Cardiology - [address] [place] [address] 05/04/2024 11:30 EST Appointment [facility] Hematology & Oncology [address] [address] 05/04/2024 12:00 EST Appointment [facility] Hematology & Oncology [address] [address] 06/12/2024 13:00 EST Appointment [facility] Radiology CT - [address] [address] documented as of this encounter Procedures Procedure Name Priority Date/Time Associated Diagnosis Comments MR ABDOMEN W WO CONTRAST Routine 11/23/2021 14:18 EDT Malignant neoplasm of right female breast, unspecified estrogen receptor status, unspecified site of breast (HCC-CMS) (HCC) (HCC-CMS) documented in this encounter Results * MR ABDOMEN W WO CONTRAST (11/23/2021 14:18 EDT) Anatomical Region Laterality Modality Body, Abdomen Magnetic Resonan ce 11/23/2021 15:4 9 EDT Impressions 11/23/2021 15:49 EDT 1. Interval increase in size of existing hepatic lesions as well as development of multiple new hepatic lesions concerning for progression of metastatic disease. 2. Interval increase in size of abnormal osseous enhancement in the thoracolumbar spine and posterior left ribs also concerning for progression of metastatic disease and consistent with findings on recent whole body bone scan. I have personally reviewed the images and the above interpretation and agree with the findings. Narrative 11/23/2021 15:49 EDT MR ABDOMEN W WO CONTRAST ??11/23/2021 1:45 PM Signs and Symptoms/Comments: ?? cancer Technique: Ef-fpy-cfx-of-phase, T2-weighted, diffusion weighted images were followed by dynamic gadolinium enhanced T1 fat-suppressed gradient echo images of the abdomen. Subtraction imaging performed. Comparison: Multiple prior MRs of the abdomen, most recently 08/11/2021. Nuclear medicine whole body bone scan 11/23/2021. Findings: Lower chest: Minimally included, but grossly unremarkable aside from right mastectomy and bilateral breast implants. Hepatobiliary: The hepatic parenchyma demonstrates normal signal intensity. Again seen are numerous hepatic lesions which demonstrate mild T2 hyperintensity, restricted diffusion, and postcontrast hypointensity in contrast to adjacent hepatic parenchyma. There has been an interval increase in size and number of hepatic metastases. For example: - right hepatic lobe lesion at the hepatic dome now measures 14 mm (b800 series 606, image #84), previously 6 mm. -A right segment 8 lesion now measures 14 mm (b800 series 606, image #168), previously 10 mm. -A segment 4 lesion now measures 11 mm (b800 series 606, image #216), previously 8 mm. -A segment 1 lesion now measures 18 mm (b800 series 606, image #228), previously 13 mm. -There are multiple new subcentimeter lesions in the right and left hepatic lobes (b800 series 606, image #120, #144, #204, and #252) The gallbladder is normal and there is no intrahepatic or extrahepatic biliary ductal dilatation. Spleen, pancreas, adrenal glands: The spleen and adrenal glands are normal. The pancreas is normal. Kidneys, proximal ureters: Enhance symmetrically and there is no suspicious renal mass. There are subcentimeter right renal cysts. The included portions of the ureters are normal in the urinary bladder is grossly unremarkable on coronal view. Bowel: No small or large bowel obstruction. Normal MR appearance. Peritoneal cavity: No free intraperitoneal air or fluid. Lymphovascular: No enlarged lymph nodes or significant vascular abnormality. Abdominal wall: No significant abnormality. Musculoskeletal: There is an enhancing osseous lesion in the posterior elements of the T11 vertebral body on the left, increased in size from prior. Apparent enhancement in the posterior elements of the L1 vertebral body may reflect artifact or enlarging osseous metastatic lesion. There is an enhancing lesion in the posterior left 10th rib and right iliac bone. There is posterior fusion hardware in the lumbar spine. Localizer: No additional findings. Procedure Note Nikkie Hernandez MD - 11/23/2021 MR ABDOMEN W WO CONTRAST 11/23/2021 1:45 PM Signs and Symptoms/Comments: cancer Technique: Pk-hzt-brh-of-phase, T2-weighted, diffusion weighted images were followedby dynamic gadolinium enhanced T1 fat-suppressed gradient echo images ofthe abdomen. Subtraction imaging performed. Comparison: Multiple prior MRs of the abdomen, most recently 08/11/2021. [facility] 11/23/2021. Findings: Lower chest: Minimally included, but grossly unremarkable aside from rightmastectomy and bilateral breast implants. Hepatobiliary: The hepatic parenchyma demonstrates normal signalintensity. Again seen are numerous hepatic lesions which demonstrate mildT2 hyperintensity, restricted diffusion, and postcontrast hypointensity incontrast to adjacent hepatic parenchyma. There has been an intervalincrease in size and number of hepatic metastases. For example: - right hepatic lobe lesion at the hepatic dome now measures 14 mm (p026ukrjmc 606, image #84), previously 6 mm. -A right segment 8 lesion now measures 14 mm (b800 series 606, image#168), previously 10 mm. -A segment 4 lesion now measures 11 mm (b800 series 606, image #216),previously 8 mm. -A segment 1 lesion now measures 18 mm (b800 series 606, image #228),previously 13 mm. -There are multiple new subcentimeter lesions in the right and lefthepatic lobes (b800 series 606, image #120, #144, #204, and #252) The gallbladder is normal and there is no intrahepatic or extrahepaticbiliary ductal dilatation. Spleen, pancreas, adrenal glands: The spleen and adrenal glands arenormal. The pancreas is normal. Kidneys, proximal ureters: Enhance symmetrically and there is nosuspicious renal mass. There are subcentimeter right renal cysts. Theincluded portions of the ureters are normal in the urinary bladder isgrossly unremarkable on coronal view. Bowel: No small or large bowel obstruction. Normal MR appearance. Peritoneal cavity: No free intraperitoneal air or fluid. Lymphovascular: No enlarged lymph nodes or significant vascularabnormality. Abdominal wall: No significant abnormality. Musculoskeletal: There is an enhancing osseous lesion in the posteriorelements of the T11 vertebral body on the left, increased in size fromprior. Apparent enhancement in the posterior elements of the L1 vertebralbody may reflect artifact or enlarging osseous metastatic lesion. There isan enhancing lesion in the posterior left 10th rib and right iliac bone.There is posterior fusion hardware in the lumbar spine. Localizer: No additional findings. IMPRESSION 1. Interval increase in size of existing hepatic lesions as well asdevelopment of multiple new hepatic lesions concerning for progression ofmetastatic disease. 2. Interval increase in size of abnormal osseous enhancement in thethoracolumbar spine and posterior left ribs also concerning forprogression of metastatic disease and consistent with findings on recentwhole body bone scan. I have personally reviewed the images and [...] Once in imaging, 1 dose, Starting on Tue11/23/21 at 1419, Until Tue11/23/21 at 1419, Routine, Imaging Protocol Orders Given 11/23/2021 14:19 EDT 13 mL documented in this encounter Orders Medications Ordered That Vj ht Not Have Been Administered Count Last Ordered Date First Ordered Date gadobutroL (GADAVIST PFS) so lution solution 1-15 mmol 1 11/23/2021 documented in this encounter Care Teams Doughnut Icer Relationship Specialty Start Date End Date Linda Blancas MD [facility] [address] [place] [address] PCP - General 01/06/11 Adolfo Carreno MD [address] [place] [phone] General Surgery 04/26/19 Augustina Colin MD PhD [address] [place] [phone] Medical Oncology 04/26/19 documented as of this encounter
--- OUTSIDE RECORDS SUMMARY | 2024-03-20 14:51 | XMS_ITS | Encounter Summary ---
Author Organization [facility] Address [address] [place] [address] Care Team Providers Care Slipcover Cutter Name Role Phone Linda Blancas MD Primary Care Provider [phone] Adolfo Carreno MD Unavailable [phone] Augustina Colin MD PhD Unavailable Unavailable Reason for Referral * Radiology Services (Routine/Next Available) - Closed Specialty Diagnoses / Procedures Referred By Contac t Referred To Contact Diagnoses Malignant neoplasm of right female breast, unspecified estrogen receptor status, unspecified site of breast ([facility]) Procedures CT CHEST W CONTRAST Augustina Colin MD PhD [facility] Referral ID Status Reason Start Date Expiration Date Visits Re quested Visits Authorized [id number] Closed 11/16/2021 05/15/2022 1 1 Reason for Visit * Radiology Services (Routine/Next Available) - Closed Specialty Diagnoses / Procedures Referred By Contac t Referred To Contact Diagnoses Malignant neoplasm of right female breast, unspecified estrogen receptor status, unspecified site of breast ([facility]) Procedures CT CHEST W CONTRAST Augustina Colin MD PhD [facility] Referral ID Status Reason Start Date Expiration Date Visits Re quested Visits Authorized [id number] Closed 11/16/2021 05/15/2022 1 1 Encounter Details Date Type Department Care Team (Latest Contact Info) Description 11/26/2021 10:40 EDT - 11/26/2021 11:11 EDT [facility] Radiology CT - Main [place] [address] [place] [address] Malignant neoplasm of right female breast, unspecified estrogen receptor status, unspecified site of breast ([facility]) ([facility] ([facility]) Discharge Disposition: Home or Self Care [...] Tablets by mouth as needed. 12/07/2023 mv-mn/C/glutamin/lysin /[id number] (AIRBORNE, ASCORBATE SODIUM, ORAL) Take by mouth [...] [facility] Interventional Radiology Unit [address] [place] [address] [phone] 04/02/2024 15:15 EDT Office Visit [facility] Surgical Oncology - [address] [phone] Adolfo Carreno MD 111 [facility], Level 2 [place] [phone] 04/05/2024 9:30 EDT Telemedicine [facility] - [facility] Palliative Care Services [address] [place] [address] [phone] Chichi Woods MD 111 [facility], [address] [phone] 04/11/2024 15:00 EDT Telemedicine [facility] Hematology & Oncology - [address] [phone] Alisson Carreon MD [address] [place] [address] 2 [place] [phone] 04/13/2024 13:30 EDT Appointment [facility] Hematology & Oncology - [address] [phone] 04/13/2024 14:00 EDT Appointment [facility] Hematology & Oncology [address] [phone] 04/16/2024 10:00 EST Telemedicine [facility] - [facility] Palliative Care Services [address] [place] [address] [phone] Chichi Woods MD [address] [place] [phone] 04/24/2024 9:00 EST Appointment [facility] Radiology CT Outpatient - [address] [phone] 04/24/2024 11:00 EST Appointment [facility] Breast Imaging - [facility] [address] 522301 04/27/2024 12:00 EST Appointment [facility] Hematology & Oncology - [address] [phone] 05/02/2024 15:00 EST Telemedicine [facility] Hematology & Oncology - [address] [phone] Alisson Carreon MD [address] [place] [address], [facility] 2 [place] [phone] 05/04/2024 10:15 EST Ancillary Procedure [facility] Cardiology - [address] [place] [address] 05/04/2024 11:30 EST Appointment [facility] Hematology & Oncology [address] [address] 05/04/2024 12:00 EST Appointment [facility] Hematology & Oncology [address] [address] 06/12/2024 13:00 EST Appointment [facility] Radiology CT - [address] [address] documented as of this encounter Procedures Procedure Name Priority Date/Time Associated Diagnosis Comments CT CHEST W CONTRAST Routine 11/26/2021 1 0:59 EDT Malignant neoplasm of right female breast, unspecified estrogen receptor status, unspecified site of breast (HCC-CMS) (HCC) (HCC-CMS) documented in this encounter Results * CT CHEST W CONTRAST (11/26/2021 10:59 EDT) Anatomical Region Laterality Modality Chest Computed Tomogra phy 11/26/2021 11:4 8 EDT Impressions 11/26/2021 11:48 EDT 1. ??Stable to minimally decreased size of a solitary left upper lobe nodule since the most recent comparison study, etiology uncertain. This finding has been present since at least 10/30/2018 and could represent an indolent metastasis or primary lung carcinoma. 2. ?? Stable mildly enlarged right internal mammary lymph node. Narrative 11/26/2021 11:[address] CHEST W CONTRAST ??11/26/2021 11:00 AM Clinical History/Comments: cancer Technique: CT scan of the chest with intravenous contrast material was performed. Comparison: 06/09/2021 CT scan. Multiple additional scans dating back to 10/30/2018. Findings: Lower neck: Normal. Mediastinum and mariann (non-vascular): Unremarkable thoracic esophagus. No enlarged or enlarging mediastinal or hilar lymph nodes. Stable 6 mm right internal mammary lymph node (image 51 series 501). Cardiovascular: ??Mild soft atherosclerotic plaque in the proximal left subclavian artery and descending thoracic aorta. Lungs and airways: ??7 x 5 mm left upper lobe nodule (image 93 series 502), slightly decreased from 9 x 5 mm on the 05/2021 comparison study. This lesion has increased substantially since 10/30/2018 at which time it measured about 3 mm. Stable scattered bilateral 1 to 2 mm nodules, for example image 250 series 502 in the right upper lobe. No evidence of pneumonitis. Patent central airways. Pleura: Normal. Upper abdomen (limited to upper abdomen, not optimized for abdominal imaging): Hypodense lesions scattered throughout the visualized portion of the liver representing known metastases, suboptimally evaluated on this chest CT. See report for MRI of the abdomen performed on the same date. Bones and chest wall soft tissues: ??Intact bilateral breast implants. ??Healed fracture of the right posterior sixth rib. No suspicious osseous lesions. Procedure Note Ewa Lockwood MD - 11/26/2021 CT CHEST W CONTRAST 11/26/2021 11:00 AM Clinical History/Comments: cancer Technique: CT scan of the chest with intravenous contrast material was performed. Comparison: 06/09/2021 CT scan. Multiple additional scans dating back to 10/30/2018. Findings: Lower neck: Normal. Mediastinum and mariann (non-vascular): Unremarkable thoracic esophagus. Noenlarged or enlarging mediastinal or hilar lymph nodes. Stable 6 mm rightinternal mammary lymph node (image 51 series 501). Cardiovascular: Mild soft atherosclerotic plaque in the proximal leftsubclavian artery and descending thoracic aorta. Lungs and airways: 7 x 5 mm left upper lobe nodule (image 93 series 502),slightly decreased from 9 x 5 mm on the 05/2021 comparison study. Thislesion has increased substantially since 10/30/2018 at which time itmeasured about 3 mm. Stable scattered bilateral 1 to 2 mm nodules, forexample image 250 series 502 in the right upper lobe. No evidence ofpneumonitis. Patent central airways. Pleura: Normal. Upper abdomen (limited to upper abdomen, not optimized for abdominalimaging): Hypodense lesions scattered throughout the visualized portion ofthe liver representing known metastases, suboptimally evaluated on thischest CT. See report for MRI of the abdomen performed on the same date. Bones and chest wall soft tissues: Intact bilateral breast implants.Healed fracture of the right posterior sixth rib. No suspicious osseouslesions. IMPRESSION 1. Stable to minimally decreased size of a solitary left upper lobenodule since the most recent comparison study, etiology uncertain. Thisfinding has been present since at least 10/30/2018 and could represent anindolent metastasis or primary lung carcinoma. 2. Stable mildly enlarged right internal mammary lymph node. Augustina Colin MD PhD IMG CT ORDERABLES documented in this encounter Visit Diagnoses Diagnosis Malignant neoplasm of right female breast, unspecified estrogen receptor status, unspecified site of breast ([facility]) documented in this encounter Administered Medications Inactive Administered Medications - up to 3 most recent administrations Medication Order MAR Action Action Date Dose Rate Site iohexoL (OMNIPAQUE 350) solution 100 mL 100 mL, intravenous, Once in imaging, 1 dose, Starting on Michelle 11/26/21 at 1059, Until Michelle 11/26/21 at 1100, Routine, Imaging Protocol Orders Given 11/26/2021 11:00 EDT 49 mL documented in this encounter Care Teams Slipcover Cutter Relationship Specialty Start Date End Date Linda Blancas MD [facility] [address] [place] [address] PCP - General 01/06/11 Adolfo Carreno MD [address] [place] [phone] General Surgery 04/26/19 Augustina Colin MD PhD [address] [place] [phone] Medical Oncology 04/26/19 documented as of this encounter
--- OUTSIDE RECORDS SUMMARY | 2024-03-20 14:51 | XMS_ITS | Encounter Summary ---
Author Organization [facility] Address [address] [place] [address] Care Team Providers Care State Trooper Name Role Phone Linda Blancas MD Primary Care Provider [phone] Adolfo Carreno MD Unavailable [phone] Augustina Colin MD PhD Unavailable Unavailable Reason for Visit * Reason Onset Date Comments Medications Refill 11/27/2021 Encounter Details Date Type Department Care Team (Late st Contact Info) Description 11/27/[address] [facility] Cancer Center Hematology & Oncology - [facility] [address] [place] [address] Augustina Colin, PhD Medications Refill Social History [...] 2 times daily. 84 Tablet 12/01/2021 01/05/2022 documented in this encounter Miscellaneous Notes * Telephone Encounter - Melyssa Alcocer RN - 11/27/2021 1654 EDT Order pended to Santi Gonzalez. * Telephone Encounter - Ingrid Goldman - 11/27/2021 0918 EDT Medication Request Medication: Capecitabine change from Ibrance Medication refill: yes Refill due: ~11/27/21 Pharmacy: [facility] Next appt: 12/24/2021 documented in this encounter Plan of Treatment Upcoming Encounters Date Type Department Care Team (Late st Contact Info) Description 04/02/2024 10:30 EDT Appointment [facility] Interventional Radiology Unit [address], [place] 3520[address] 04/02/2024 15:15 EDT Office Visit [facility] Surgical Oncology - [facility] [address], [place] 432141 Adolfo Carreno MD 111 [facility], Level 2 [place] [phone] 04/05/2024 9:[address] [facility] - [facility] Palliative Care Services [address], [place] [phone] Chichi Woods MD [address] [place] [address] [address] [place] [phone] 04/11/2024 15:00 EDT Telemedicine [facility] Hematology & Oncology - [address] [phone] Alisson Carreon MD [address] [place] [address], Level 2 [place] [phone] 04/13/2024 13:30 EDT Appointment [facility] Hematology & Oncology [address] [phone] 04/13/2024 14:00 EDT Appointment [facility] Hematology & Oncology [address] [address] 04/16/2024 10:[address] [facility] - [facility] Palliative Care Services [address] [place] [address] [id number] Chichi Woods MD [address] [place] [address] [phone] 04/24/2024 9:00 EST Appointment [facility] Radiology CT Outpatient - [address] [id number] 04/24/2024 11:00 EST Appointment [facility] Breast Imaging - [address] [phone] 04/27/2024 12:00 EST Appointment [facility] Hematology & Oncology - [address] [phone] 05/02/2024 15:00 EST Telemedicine [facility] Hematology & Oncology - [address] [phone] Alisson Carreon MD [address] [place] [address] [phone] 05/04/2024 10:15 EST Ancillary Procedure [facility] Cardiology - [address] [place], [place] [phone] 05/04/2024 11:30 EST Appointment [facility] Hematology & Oncology [address] [phone] 05/04/2024 12:00 EST Appointment [facility] Hematology & Oncology [address] [phone] 06/12/2024 13:00 EST Appointment [facility] Radiology CT - [address] [phone] documented as of this encounter Visit Diagnoses Not on filedocumented in this encounter Additional Health Concerns Infection Onset Date Last Indicated Resolved Time R/O COVID-19 12/12/2023 12/12/2023 12/12/2023 15:3 5 EDT R/O COVID-19 01/08/2024 01/08/2024 01/08/2024 18:2 6 EDT R/O COVID-19 01/16/2024 01/16/2024 01/16/2024 17:5 0 EDT documented as of this encounter Care Teams State Trooper Relationship Specialty Start Date End Date Linda Blancas MD [facility] [address] [place] [address] PCP - General 01/06/11 Adolfo Carreno MD [address] [place] [address] [phone] General Surgery 04/26/19 Augustina Colin MD PhD [address] [place] [phone] Medical Oncology 04/26/19 documented as of this encounter
--- OUTSIDE RECORDS SUMMARY | 2024-03-20 14:51 | XMS_ITS | Encounter Summary ---
Author Organization [facility] Address [address] [place] [address] Care Team Providers Care Order Desk Caller Name Role Phone Linda Blancas MD Primary Care Provider [phone] Adolfo Carreno MD Unavailable [phone] Augustina Colin MD PhD Unavailable Unavailable Encounter Details Date Type Department Care Team (Late st Contact Info) Description 11/27/2021 Orders Only [facility] Cancer Center Hematology & Oncology - [facility] [address] [place] [address] Melyssa Alcocer RN Social History Tobacco Use Types Packs/Day [...] Appointment [facility] Interventional Radiology Unit [address] [place] [address] [phone] 04/02/2024 15:15 EDT Office Visit [facility] Surgical Oncology - [address] [phone] Adolfo Carreno MD [address] [place] [address] [phone] 04/05/2024 9:30 EDT Telemedicine [facility] - [facility] Palliative Care Services [address] [place] [address] [phone] Chichi Woods MD [address] [place] [address] [phone] 04/11/2024 15:00 EDT Telemedicine [facility] Hematology & Oncology [address] [phone] Alisson Carreon MD [address] [place] [phone] 04/13/2024 13:30 EDT Appointment [facility] Hematology & Oncology [address] [phone] 04/13/2024 14:00 EDT Appointment [facility] Hematology & Oncology [address] [phone] 04/16/2024 10:00 EST Telemedicine [facility] - [facility] Palliative Care Services [address] [place] [address] [phone] Chichi Woods MD [address] [place] [address], [address] [place] [phone] 04/24/2024 9:00 EST Appointment [facility] Radiology CT Outpatient - [address] [phone] 04/24/2024 11:00 EST Appointment [facility] Breast Imaging - [facility] [address] [place], [place] 394081 04/27/2024 12:00 EST Appointment [facility] Hematology & Oncology - [address] [phone] 05/02/2024 15:00 EST Telemedicine [facility] Hematology & Oncology - [address] [phone] Alisson Carreon MD [address] [place] [address], [facility], Level [address] [place] [phone] 05/04/2024 10:15 EST Ancillary Procedure [facility] Cardiology - [address] [place], [place] [phone] 05/04/2024 11:30 EST Appointment [facility] Hematology & Oncology - [address] [phone] 05/04/2024 12:00 EST Appointment [facility] Hematology & Oncology [address] [phone] 06/12/2024 13:00 EST Appointment [facility] Radiology CT - [address] [phone] documented as of this encounter Visit Diagnoses Not on filedocumented in this encounter Care Teams Order Desk Caller Relationship Specialty Start Date End Date Linda Blancas MD [facility] [address] [place] [address] PCP - General 01/06/11 Adolfo Carreno MD [address] [place] [address], [facility] [address] [place] [phone] General Surgery 04/26/19 Augustina Colin MD PhD [address] [place] [address], [facility] [address] [place] [phone] Medical Oncology 04/26/19 documented as of this encounter
--- OUTSIDE RECORDS SUMMARY | 2024-03-20 14:51 | XMS_ITS | Encounter Summary ---
Author Organization [facility] Address [address] [place] [address] Care Team Providers Care Revival Clerk Name Role Phone Linda Blancas MD Primary Care Provider [phone] Adolfo Carreno MD Unavailable Augustina Colin MD PhD Unavailable Unavailable Reason for Referral * Radiology Services (Routine/Next Available) - Closed Specialty Diagnoses / Procedures Referred By Doug hearn Referred To Contact Radiology Diagnoses Metastatic breast cancer Procedures MR ABDOMEN W WO CONTRAST Augustina Colin MD PhD [facility] Referral ID Status Reason Start Date Expiration Date Visits Re quested Visits Authorized [id number] Closed 02/09/2022 08/08/2022 1 1 * Radiology Services (Routine/Next Available) - Authorization Not Required Specialty Diagnoses / Procedures Referred By Doug hearn Referred To Contact Diagnoses Metastatic breast cancer Procedures IR BIOPSY Augustina Colin MD PhD [facility] Referral ID Status Reason Start Date Expiration Date Visits Requested Visits Authorized [id number] Authorization Not Required 11/26/2021 1 1 Reason for Visit * Reason Comments Follow-up Encounter Details Date Type Department Care Team (Late st Contact Info) Description 11/26/2021 11:30 EDT Office Visit [facility] Cancer Center Hematology & Oncology - [facility] [address] [place] [address] Augustina Colin MD PhD Metastatic breast cancer [...] Reading Time Taken Comments Blood Pressure 124/58 11/26/2021 1116 EDT Pulse 84 11/26/2021 1116 EDT Temperature 36.3 ??C (97.3 ??F) 11/26/2021 1116 EDT Respiratory Rate 14 11/26/2021 1116 EDT Oxygen Saturation 100% 11/26/2021 1116 EDT Inhaled Oxygen Concentration - - Weight 61.5 kg (135 lb 8 oz) 11/26/2021 1116 EDT Height 155.2 cm (5' 1.1) 11/26/2021 1116 EDT Body Mass Index 25.52 11/26/2021 1116 EDT documented in this encounter Functional Status [...] Notes * Augustina Colin MD PhD - 11/26/2021 1130 EDT REASON FOR OFFICE VISIT: ??Discussion of side effects related to anti estrogen therapy and scan results ? PROBLEM LIST: 1. 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 a. ??Ultrasound performed in [place]??identifying an irregular heterogeneous soft tissue mass measuring 1.2 x 1.2 x 1.5 cm. ?? 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 ??HER-2 1+ by IHC. ??ANNE MARIE revealed [...] breast tumor 07/07/17 and placement of tissue rn birthing. ??1.9 cm tumor at time of surgery, [...] FORMULA ORAL) Take by mouth daily. ??? mv-mn/C/glutamin/lysin/kfjx200 (AIR[place]ORNE, ASCORBATE SODIUM, ORAL) Take by mouth [...] BID. If not tolerated we use the [facility] dosing of 1 week on 1 week [...] concerns or problems. documented in this encounter Miscellaneous Notes * Addendum Note - Augustina Colin MD PhD - 11/26/2021 1130 EDTAddended by: AUGUSTINA COLIN on: 11/28/2021 10:58 Modules accepted: Orders documented in this encounter Plan of Treatment Upcoming Encounters Date Type Department Care Team (Late st Contact Info) Description 04/02/2024 10:30 EDT Appointment [facility] Interventional Radiology Unit [address], [place] 498771 04/02/2024 15:15 EDT Office Visit [facility] Surgical Oncology - [address] [phone] Adolfo Carreno MD 111 [facility], Level 2 [place] [phone] 04/05/2024 9:30 EDT Telemedicine [facility] Palliative Care Services [address] [place] [address] [phone] Chichi Woods MD [address] [place] [address] [phone] 04/11/2024 15:00 EDT Telemedicine [facility] Hematology & Oncology - [address] [phone] Alisson Carreon MD [address] [place] [address], Level 2 [place] [phone] 04/13/2024 13:30 EDT Appointment [facility] Hematology & Oncology [address] [phone] 04/13/2024 14:00 EDT Appointment [facility] Hematology & Oncology [address] [phone] 04/16/2024 10:00 EST Telemedicine [facility] Palliative Care Services [address] [place] [address] 147611 Chichi Woods MD [address] [place] [address] [phone] 04/24/2024 9:00 EST Appointment [facility] Radiology CT Outpatient - [address] [phone] 04/24/2024 11:00 EST Appointment [facility] Breast Imaging - [address] [phone] 04/27/2024 12:00 EST Appointment [facility] Hematology & Oncology - [address] 927061 05/02/2024 15:00 EST Telemedicine [facility] Hematology & Oncology - [address] [address] Alisson Carreon MD 111 [facility], Level 2 [place] [phone] 05/04/2024 10:15 EST Ancillary Procedure [facility] Cardiology - [address] [place] [address] 05/04/2024 11:30 EST Appointment [facility] Hematology & Oncology [address] [phone] 05/04/2024 12:00 EST Appointment [facility] Hematology & Oncology [address] [id number] 06/12/2024 13:00 EST Appointment [facility] Radiology CT - [address] [phone] documented as of this encounter Results * [...] Signs and Symptoms/Comments: ?? breast cancer Technique: Zz-nqj-vsu-of-phase, T2-weighted, diffusion weighted images were followed by dynamic gadolinium enhanced T1 fat-suppressed gradient echo images of the abdomen. Subtraction imaging performed. Comparison: MRI abdomen 11/23/2021, bone scan 11/23/21 Findings: Lower chest: There are bilateral breast prostheses. A nonenlarged lymph node along the left prostheses which previously demonstrated restricted diffusion is outside the cmpvl-wb-ptmv. Hepatobiliary: Numerous hepatic lesions demonstrating restricted diffusion [...] PM Signs and Symptoms/Comments: breast cancer Technique: Uc-rpj-fog-of-phase, T2-weighted, diffusion weighted images were followedby dynamic gadolinium enhanced T1 fat-suppressed gradient echo images ofthe abdomen. Subtraction imaging performed. Comparison: MRI abdomen 11/23/2021, bone scan 11/23/21 Findings: Lower chest: There are bilateral breast prostheses. A nonenlarged lymphnode along the left prostheses which previously demonstrated restricteddiffusion is outside the lpbjt-ey-yqve. Hepatobiliary: Numerous hepatic lesions demonstrating restricted diffusion [...] Augustina Colin MD PhD IMG MRI ORDERABLES * IR BIOPSY (12/16/2021 11:16 EDT) Anatomical [...] during the procedure was zero. Procedure Note Patrick, Christopher Jin, MD - 12/18/2021 Ultrasound-guided fine-needle aspiration and [...] Colin MD PhD IMG IR ORDERABLES * (ABNORMAL) CA 27.29 (11/26/2021 12:28 EDT) CA 27.29 377.9(H) <38.0 U/mL 11/27/2021 8:55 EDT [facility] Comment: NOTE: Serum CA 27.29 [...] CHEMISTRY & BLOOD GA S ORDERABLES [facility] [address] [place] [address] documented in this encounter Visit Diagnoses Diagnosis Metastatic breast cancer- Primary Metastatic breast cancer Other specified diseases of liver Metastatic breast cancer documented in this encounter Care Teams Revival Clerk Relationship Specialty Start Date End Date Linda Blancas MD [facility] [address] [place] [address] PCP - General 01/06/11 Adolfo Carreno MD [address] [place] [address] [phone] General Surgery 04/26/19 Augustina Colin MD PhD [address] [place] [phone] Medical Oncology 04/26/19 documented as of this encounter
--- OUTSIDE RECORDS SUMMARY | 2024-03-20 14:51 | XMS_ITS | Encounter Summary ---
Author Organization [facility] Address [address] [place] [address] Care Team Providers Care Ethnographer Name Role Phone Linda Blancas MD Primary Care Provider [phone] Adolfo Carreno MD Unavailable [phone] Augustina Colin MD PhD Unavailable Unavailable Reason for Visit * Reason Onset Date Comments Medication Management 11/27/2021 Encounter Details Date Type Department Care Team (Late st Contact Info) Description 11/27/2021 Telephone [facility] Cancer Center Hematology & Oncology - [place] [address] [place], [place] 00[address] Augustina Colin, PhD Medication Management Social History [...] encounter Miscellaneous Notes * Telephone Encounter - Ronaldo Gutierrez - 11/27/2021 1602 EDT Sendy is calling to advise that the specialty pharmacy has not received the prescription for her new medication. documented in this encounter Plan of Treatment Upcoming Encounters Date Type Department Care Team (Late st Contact Info) Description 04/02/2024 10:30 EDT Appointment [facility] Interventional Radiology Unit [address] [place] [address] [phone] 04/02/2024 15:15 EDT Office Visit [facility] Surgical Oncology - [address] 568301 Adolfo Carreno MD [address] [place] [address] 2 [place] [phone] 04/05/2024 9:30 EDT Telemedicine [facility] - [facility] Palliative Care Services [address] [place] [address] 845191 Chichi Woods MD [address] [place] [address], [address] [phone] 04/11/2024 15:00 EDT Telemedicine [facility] Hematology & Oncology - [address] [phone] Alisson Carreon MD [address] [place] [address] 2 [place] [phone] 04/13/2024 13:30 EDT Appointment [facility] Hematology & Oncology - [address] 506251 04/13/2024 14:00 EDT Appointment [facility] Hematology & Oncology - [address] [address] 04/16/2024 10:00 EST Telemedicine [facility] - [facility] Palliative Care Services [address] [place] [address] 849231 Chichi Woods MD [address] [place] [address] [phone] 04/24/2024 9:00 EST Appointment [facility] Radiology CT Outpatient - [address] [address] 04/24/2024 11:00 EST Appointment [facility] Breast Imaging - [facility] [address] 089401 04/27/2024 12:00 EST Appointment [facility] Hematology & Oncology - [address] 471911 05/02/2024 15:00 EST Telemedicine [facility] Hematology & Oncology - [address] 435251 Alisson Carreon MD [address] [place] [address], [facility], Level [address] [place] [phone] 05/04/2024 10:15 EST Ancillary Procedure [facility] Cardiology - [address] [place], [place] [phone] 05/04/2024 11:30 EST Appointment [facility] Hematology & Oncology - [address] 264851 05/04/2024 12:00 EST Appointment [facility] Hematology & Oncology - [address] [address] 06/12/2024 13:00 EST [facility] Rad[facility] - [address] [address] documented as of this encounter Visit Diagnoses Not on filedocumented in this encounter Additional Health Concerns Infection Onset Date Last Indicated Resolved Time R/O COVID-19 12/12/2023 12/12/2023 12/12/2023 15:3 5 EDT R/O COVID-19 01/08/2024 01/08/2024 01/08/2024 18:2 6 EDT R/O COVID-19 01/16/2024 01/16/2024 01/16/2024 17:5 0 EDT documented as of this encounter Care Teams Ethnographer Relationship Specialty Start Date End Date Linda Blancas MD [facility] [address] [place] [address] PCP - General 01/06/11 Adolfo Carreno MD [address] [place] [address] [phone] General Surgery 04/26/19 Augustina Colin MD PhD [address] [place] [phone] Medical Oncology 04/26/19 documented as of this encounter
--- OUTSIDE RECORDS SUMMARY | 2024-03-20 14:51 | XMS_ITS | Encounter Summary ---
Author Organization [facility] Address [address] [place] [address] Care Team Providers Care Plastics Technician Name Role Phone Linda Blancas MD Primary Care Provider [phone] Adolfo Carreno MD Unavailable Augustina Colin MD PhD Unavailable Unavailable Reason for Referral * Radiology Services (Routine/Next Available) - Authorization Not Required Specialty Diagnoses / Procedures [facility]erred To Contact Nuclear Medicine Diagnoses Malignant neoplasm of right female breast, unspecified estrogen receptor status, unspecified site of breast ([facility]) Procedures NM BONE WHOLE BODY Augustina Colin MD PhD [facility] Referral ID Status Reason Start Date Expiration Date Visits Requested Visits Authorized [id number] Authorization Not Required 08/19/2021 1 1 Reason for Visit * Radiology Services (Routine/Next Available) - Authorization Not Required Specialty Diagnoses / Procedures [facility] Referred To Contact Nuclear Medicine Diagnoses Malignant neoplasm of right female breast, unspecified estrogen receptor status, unspecified site of breast ([facility]) Procedures NM BONE WHOLE BODY Augustina Colin MD PhD [facility] Referral ID Status Reason Start Date Expiration Date Visits Requested Visits Authorized [id number] Authorization Not Required 08/19/2021 1 1 Encounter Details Date Type Department Care Team (Latest Contact Info) Description 11/23/2021 8:57 EDT [facility] Rad[facility] Nuclear Medicine and PET - [address] [id number] Malignant neoplasm of right female breast, unspecified estrogen receptor status, unspecified site of breast ([facility]) ([facility]) ([facility]) Discharge Disposition: Home or Self Care [...] Tablets by mouth as needed. 12/07/2023 mv-mn/C/glutamin/lysin /[id number] (AIRBORNE, ASCORBATE SODIUM, ORAL) Take by mouth [...] [facility] Interventional Radiology Unit [address] [place] [address] [phone] 04/02/2024 15:15 EDT Office Visit [facility] Surgical Oncology - [address] [phone] Adolfo Carreno MD 111 [facility], Level 2 [place] [phone] 04/05/2024 9:30 EDT Telemedicine [facility] - [facility] Palliative Care Services [address] [place], [place] [phone] Chichi Woods MD 111 [facility], [address] [phone] 04/11/2024 15:00 EDT Telemedicine [facility] Hematology & Oncology - [address] 371941 Alisson Carreon MD [address] [place] [address], [facility] 2 [place] [phone] 04/13/2024 13:30 EDT Appointment [facility] Hematology & Oncology - [address] 112341 04/13/2024 14:00 EDT Appointment [facility] Hematology & Oncology [address] [id number] 04/16/2024 10:00 EST Telemedicine [facility] - [facility] Palliative Care Services [address] [place] [address] Chichi Woods MD [address] [place] [address] [phone] 04/24/2024 9:00 EST Appointment [facility] Radiology CT Outpatient - [address] [id number] 04/24/2024 11:00 EST Appointment [facility] Breast Imaging - [address] [id number] 04/27/2024 12:00 EST Appointment [facility] Hematology & Oncology - [address] [phone] 05/02/2024 15:00 EST Telemedicine [facility] Hematology & Oncology - [address] [phone] Alisson Carreon MD [address] [place] [address], [facility] 2 [place] [phone] 05/04/2024 10:15 EST Ancillary Procedure [facility] Cardiology - [address] [place] [address] 05/04/2024 11:30 EST Appointment [facility] Hematology & Oncology [address] [address] 05/04/2024 12:00 EST Appointment [facility] Hematology & Oncology [address] [address] 06/12/2024 13:00 EST Appointment [facility] Radiology CT - [address] [phone] documented as of this encounter Procedures Procedure Name Priority Date/Time Associated Diagnosis Comments NM BONE WHOLE BODY Routine 11/23/2021 12 :49 EDT Malignant neoplasm of right female breast, unspecified estrogen receptor status, unspecified site of breast (HCC-CMS) (HCC) (HCC-CMS) documented in this encounter Results * NM BONE WHOLE BODY (11/23/2021 12:49 EDT) Anatomical Region Laterality Modality Nuclear Medicine 11/23/2021 13:2 1 EDT Impressions 11/23/2021 13:21 EDT Findings as described, highly suspicious for progression of skeletal metastatic disease Narrative 11/23/2021 13:21 EDT NM BONE WHOLE BODY ??11/23/2021 12:00 PM Signs and Symptoms: ??cancer Comparison: Whole-body bone scan June 09, 2021 Technique: Approximately two hours after the IV injection of 18.9 mCi Tc-99m MDP, anterior and posterior whole body bone images were obtained. Findings: Increased activity in the upper lumbar spine corresponding with spinal fusion is again noted. Uptake in the region of a lower cervical spine facet is stable. The focus of increased activity in the superior aspect of the right ilium is stable. There are new foci of increased activity in the left posterior ninth rib, in the region of the costovertebral joint of the left 11th rib, and in the region of the posterior lateral right sixth rib, highly suspicious for progression of skeletal metastatic disease. Procedure Note Samuel Bowen MD - 11/23/2021 NM BONE WHOLE BODY 11/23/2021 12:00 PM Signs and Symptoms: cancer Comparison: Whole-body bone scan June 09, 2021 Technique: Approximately two hours after the IV injection of 18.9 mCi Tc-99m MDP,anterior and posterior whole body bone images were obtained. Findings: Increased activity in the upper lumbar spine corresponding with spinalfusion is again noted. Uptake in the region of a lower cervical spinefacet is stable. The focus of increased activity in the superior aspect ofthe right ilium is stable. There are new foci of increased activity in theleft posterior ninth rib, in the region of the costovertebral joint of theleft 11th rib, and in the region of the posterior lateral right sixth rib,highly suspicious for progression of skeletal metastatic disease. IMPRESSION Findings as described, highly suspicious for progression of skeletalmetastatic disease Augustina Colin MD PhD IMG NM ORDERABLES [...] radiopharm IV, NOW X1, 1 dose, On 11/23/21 at 0945, Routine, Imaging Protocol Orders Given 11/23/2021 9:16 EDT 18.9 millicuries Right ACF documented in this encounter Care Teams Plastics Technician Relationship Specialty Start Date End Date Linda Blancas MD [facility] [address] [place] [address] PCP - General 01/06/11 Adolfo Carreno MD [address] [place] [phone] General Surgery 04/26/19 Augustina Colin MD PhD [address] [place] [address] [place] [phone] Medical Oncology 04/26/19 documented as of this encounter
--- OUTSIDE RECORDS SUMMARY | 2024-03-20 14:51 | XMS_ITS | Encounter Summary ---
Author Organization [facility] Address [address] [place] [address] Care Team Providers Care Sales Account Associate Name Role Phone Linda Blancas MD Primary Care Provider [phone] Adolfo Carreno MD Unavailable [phone] Augustina Colin MD PhD Unavailable Unavailable Reason for Visit * Reason Comments Injections * Episode Based Medications (Routine) - Closed Specialty Diagnoses / Procedures Referred By [facility] Referred To Contact Diagnoses Malignant neoplasm of right female breast, unspecified estrogen receptor status, unspecified site of breast (HCC-CMS) Augustina Colin MD PhD [facility] Ep2 Infusion [address] [place] [address] Referral ID Status Reason Start Date Expiration Date Visits Re quested Visits Authorized [id number] Closed 08/19/2021 06/12/2022 1 1 Encounter Details Date Type Department Care Team (Latest Contact Info) Description 10/29/2021 14:00 EDT - 10/29/2021 23:59 EDT Hospital Encounter [facility] Hematology & Oncology - Main [place] [address] [place], [place] [phone] Malignant neoplasm of right female breast, unspecified estrogen receptor status, unspecified site of breast (HCC-CMS) (HCC) (HCC-CMS) (Primary Dx) Discharge Disposition: Home or [...] Sign Reading Time Taken Comments Blood Pressure 125/89 10/29/2021 1429 EDT Pulse 80 10/29/2021 1429 EDT Temperature 36.4 ??C (97.5 ??F) 10/29/2021 1429 EDT Respiratory Rate 16 10/29/2021 1429 EDT Oxygen Saturation 99% 10/29/2021 1429 EDT Inhaled Oxygen Concentration - - Weight 63 kg (138 lb 14.4 oz) 10/29/2021 1429 ED T Height - - Body Mass Index 26.16 05/14/2021 1238 EST documented in this encounter Functional Status [...] Tablets by mouth as needed. 12/07/2023 mv-mn/C/glutamin/lysin /[id number] (AIRBORNE, ASCORBATE SODIUM, ORAL) Take by mouth [...] in this encounter Progress Notes * Beck Ham RN - 10/29/2021 1400 EDT Patient presents to clinic today for cycle # 22, day # 1 of Faslodex treatment plan. 500 mg IM injection administered to bilat gluteal muscles (250 mg X 2); see MAR. No complications at sites, dressings applied. Pt d/c from clinic in stable condition. Patient tolerating treatment at this time with no signs of reaction or side effects. Patient education: Patient educated on all medications administered today. Patient expressed understanding of education provided and no barriers identified I was supervised by Dr. Lopez who was present and immediately available in the office suite. BECK AHM RN 10/29/2021 14:32 documented in this encounter Miscellaneous Notes * Addendum Note - John Ventura - 10/29/2021 1400 EDTEncounter addended by: John Ventura on: 11/13/2021 8:18 Actions taken: Charge Capture section accepted documented in this encounter Plan of Treatment Upcoming Encounters Date Type Department Care Team (Late st Contact Info) Description 04/02/2024 10:30 EDT Appointment [facility] Interventional Radiology Unit [address] [place] [address] [phone] 04/02/2024 15:15 EDT Office Visit [facility] Surgical Oncology - [address] [phone] Adolfo Carreno MD [address] [place] [address] 2 [place] [phone] 04/05/2024 9:30 EDT Telemedicine [facility] - [facility] Palliative Care Services [address] [place] [address] [phone] Chichi Woods MD [address] [place] [address] [phone] 04/11/2024 15:00 EDT Telemedicine [facility] Hematology & Oncology [address] [phone] Alisson Carreon MD [address] [place] [address] [phone] 04/13/2024 13:30 EDT Appointment [facility] Hematology & Oncology [address] [address] 04/13/2024 14:00 EDT Appointment [facility] Hematology & Oncology - [address] [id number] 04/16/2024 10:00 EST Telemedicine [facility] - [facility] Palliative Care Services [address] [place] [address] [phone] Chichi Woods MD [address] [place] [address], [address] [phone] 04/24/2024 9:00 EST Appointment [facility] Radiology CT Outpatient - [address] [id number] 04/24/2024 11:00 EST Appointment [facility] Breast Imaging - [address] [phone] 04/27/2024 12:00 EST Appointment [facility] Hematology & Oncology - [address] [phone] 05/02/2024 15:00 EST Telemedicine [facility] Hematology & Oncology - [address] [phone] Alisson Carreon MD [address] [place] [address], Level 2 [place] [phone] 05/04/2024 10:15 EST Ancillary Procedure [facility] Cardiology - [place] [address] 05/04/2024 11:30 EST Appointment [facility] Hematology & Oncology - [address] 130691 05/04/2024 12:00 EST Appointment [facility] Hematology & Oncology [address] [phone] 06/12/2024 13:00 EST Appointment [facility] Radiology CT - [address] [phone] documented as of this encounter Visit Diagnoses Diagnosis Malignant neoplasm of right female breast, unspecified estrogen receptor status, unspecified site of breast (H[facility])- Primary documented in this encounter Administered Medications Inactive Administered Medications - up to 3 most recent administrations Medication Order MAR Action Action Date Dose Rate Site fulvestrant (FASLODEX) injection 500 mg 500 mg, intramuscular, NOW X1, 1 dose, On Michelle 10/29/21 at 1445, Routine Given 10/29/2021 14:38 EDT 500 mg documented in this encounter Orders Appointment Requests Count Last Ordered Date Fi rst Ordered Date ONCBCN INJECTION APPOINTMENT REQUEST 1 10/11 documented in this encounter Care Teams Sales Account Associate Relationship Specialty Start Date End Date Linda Blancas MD [facility] [address] [place] [address] PCP - General 01/06/11 Adolfo Carreno MD [address] [place] [phone] General Surgery 04/26/19 Augustina Colin MD PhD [address] [phone] Medical Oncology 04/26/19 documented as of this encounter
--- OUTSIDE RECORDS SUMMARY | 2024-03-20 14:51 | XMS_ITS | Encounter Summary ---
Author Organization [facility] Address [address] [place] [address] Care Team Providers Care Security Coordinator Name Role Phone Linda Blancas MD Primary Care Provider Adolfo Carreno MD Unavailable [phone] Augustina Colin MD PhD Unavailable Unavailable Reason for Visit * Radiology Services (Routine/Next Available) - Authorization Not Required Specialty Diagnoses / Procedures Referred By Contac t Referred To Contact Nuclear Medicine Diagnoses Malignant neoplasm of right female breast, unspecified estrogen receptor status, unspecified site of breast ([facility]) Procedures NM BONE WHOLE BODY Augustina Colin MD PhD [facility] Referral ID Status Reason Start Date Expiration Date Visits Requested Visits Authorized [id number] Authorization Not Required 08/19/2021 1 1 Encounter Details Date Type Department Care Team (Latest Contact Info) Description 11/23/2021 8:58 EDT - 11/23/2021 13:28 EDT Hospital Encounter [facility] Radiology Nuclear Medicine and PET - [address] [address] Discharge Disposition: Home or Self Care Social [...] Tablets by mouth as needed. 12/07/2023 mv-mn/C/glutamin/lysin /[id number] (AIRBORNE, ASCORBATE SODIUM, ORAL) Take by mouth [...] EDT Appointment [facility] Interventional Radiology Unit [address] [place] [address] [phone] 04/02/2024 15:15 EDT Office Visit [facility] Surgical Oncology - [address] [phone] Adolfo Carreno MD [address] [place] [address] 2 [place] [phone] 04/05/2024 9:30 EDT Telemedicine [facility] - [facility] Palliative Care Services [address] [place] [address] [phone] Chichi Woods MD [address] [place] [address], [address] [phone] 04/11/2024 15:00 EDT Telemedicine [facility] Hematology & Oncology - [address] [phone] Alisson Carreon MD [address] [place] [address] 2 [place] [phone] 04/13/2024 13:30 EDT Appointment [facility] Hematology & Oncology - [address] [id number] 04/13/2024 14:00 EDT Appointment [facility] Hematology & Oncology - [address] [id number] 04/16/2024 10:00 EST Telemedicine [facility] - [facility] Palliative Care Services [address] [place] [address] Chichi Woods MD 111 [facility], [address] [phone] 04/24/2024 9:00 EST Appointment [facility] Radiology CT Outpatient - [address] [id number] 04/24/2024 11:00 EST Appointment [facility] Breast Imaging - [facility] [address] [place] [address] [place], [place] 791431 04/27/2024 12:00 EST Appointment [facility] Hematology & Oncology - [address] [phone] 05/02/2024 15:00 EST Telemedicine [facility] Hematology & Oncology - [address] [phone] Alisson Carreon MD [address] [place] [address], [facility], Level 2 [place] [phone] 05/04/2024 10:15 EST Ancillary Procedure [facility] Cardiology - [place] [place] [address] 05/04/2024 11:30 EST Appointment [facility] Hematology & Oncology - [address] [id number] 05/04/2024 12:00 EST Appointment [facility] Hematology & Oncology - [address] [phone] 06/12/2024 13:00 EST Appointment [facility] Center Radiology CT - [address] [phone] documented as of this encounter Procedures Procedure [...] on filedocumented in this encounter Care Teams Security Coordinator Relationship Specialty Start Date End Date Linda Blancas MD [facility] [address] [place] [address] PCP - General 01/06/11 Adolfo Carreno MD [address] [place] [phone] General Surgery 04/26/19 Augustina Colin MD PhD [address] [place] [address], [facility] 2 [place] [phone] Medical Oncology 04/26/19 documented as of this encounter
--- OUTSIDE RECORDS SUMMARY | 2024-03-20 14:51 | XMS_ITS | Encounter Summary ---
Author Organization [facility] Address [address] [place] [address] Care Team Providers Care Box Icer Name Role Phone Linda Blancas MD Primary Care Provider [phone] Adolfo Carreno MD Unavailable Augustina Colin MD PhD Unavailable Unavailable Encounter Details Date Type Department Care Team (Late st Contact Info) Description 10/28/2021 Orders Only [facility] Cancer Center Hematology & Oncology - [facility] [address] [place] [address] Augustina Colin, PhD Social History Tobacco Use [...] EDT Appointment [facility] Interventional Radiology Unit [address] [place] [address] [phone] 04/02/2024 15:15 EDT Office Visit [facility] Surgical Oncology - [address] [phone] Adolfo Carreno MD [address] [place] [phone] 04/05/2024 9:[address] [facility] - [facility] Palliative Care Services [address] [place] [address] [phone] Chichi Woods MD [address] [place] [address] [phone] 04/11/2024 15:00 EDT Telemedicine [facility] Hematology & Oncology [address] 826211 Alisson Carreon MD [address] [place] [phone] 04/13/2024 13:30 EDT Appointment [facility] Hematology & Oncology [address] [phone] 04/13/2024 14:00 EDT Appointment [facility] Hematology & Oncology [address] 134241 04/16/2024 10:[address] [facility] - [facility] Palliative Care Services [address] [place] [address] [phone] Chichi Woods MD [address] [place] [address], [address] [phone] 04/24/2024 9:00 EST Appointment [facility] Radiology CT Outpatient - [address] [id number] 04/24/2024 11:00 EST Appointment [facility] Breast Imaging - [facility] [address] [address] [place], [place] 097221 04/27/2024 12:00 EST Appointment [facility] Hematology & Oncology - [address] [phone] 05/02/2024 15:00 EST Telemedicine [facility] Hematology & Oncology - [address] [address] Alisson Carreon MD [address] [place] [address], [facility], Level [address] [place] [phone] 05/04/2024 10:15 EST Ancillary Procedure [facility] Cardiology - [address] [place], [place] [phone] 05/04/2024 11:30 EST Appointment [facility] Hematology & Oncology - [address] [phone] 05/04/2024 12:00 EST Appointment [facility] Hematology & Oncology [address] [phone] 06/12/2024 13:00 EST Appointment [facility] Center Radiology CT - [address] [phone] documented as of this encounter Visit Diagnoses Not on filedocumented in this encounter Additional Health Concerns Infection Onset Date Last Indicated Resolved Time R/O COVID-19 12/12/2023 12/12/2023 12/12/2023 15:3 5 EDT R/O COVID-19 01/08/2024 01/08/2024 01/08/2024 18:2 6 EDT R/O COVID-19 01/16/2024 01/16/2024 01/16/2024 17:5 0 EDT documented as of this encounter Care Teams Box Icer Relationship Specialty Start Date End Date Linda Blancas MD [facility] [address] [place] [address] PCP - General 01/06/11 Adolfo Carreno MD [address] [place] [address] 2 [place] [phone] General Surgery 04/26/19 Augustina Colin MD PhD [address] [place] [address], [facility] 2 [place] [phone] Medical Oncology 04/26/19 documented as of this encounter
--- OUTSIDE RECORDS SUMMARY | 2024-03-20 14:51 | XMS_ITS | Encounter Summary ---
Author Organization [facility] Address [address] [place] [address] Care Team Providers Care Butt Presser Name Role Phone Linda Blancas MD Primary Care Provider [phone] Adolfo Carreno MD Unavailable Augustina Colin MD PhD Unavailable Unavailable Encounter Details Date Type Department Care Team (Late st Contact Info) Description 11/26/2021 Orders Only [facility] Radiology - Main [place] [address] [place], [place] 149241 Kody Nuñez MD [facility] E [address] [place] [phone] Social History Tobacco Use Types Packs/Day Years [...] [facility] Interventional Radiology Unit [address], [place] 244891 04/02/2024 15:15 EDT Office Visit [facility] Surgical Oncology - [address] [phone] Adolfo Carreno MD [address] [place] [address] 2 [place] [phone] 04/05/2024 9:30 EDT Telemedicine [facility] - [facility] Palliative Care Services [address], [place] [phone] Chichi Woods MD [address] [place] [address], [address] [phone] 04/11/2024 15:00 EDT Telemedicine [facility] Hematology & Oncology [address] [phone] Alisson Carreon MD [address] [place] [address] 2 [place] [phone] 04/13/2024 13:30 EDT Appointment [facility] Hematology & Oncology - [address] [phone] 04/13/2024 14:00 EDT Appointment [facility] Hematology & Oncology - [address] [phone] 04/16/2024 10:00 EST Telemedicine [facility] - [facility] Palliative Care Services [address] [place] [address] Chichi Woods MD 111 [facility], [address] [phone] 04/24/2024 9:00 EST Appointment [facility] Radiology CT Outpatient - [address] 288851 04/24/2024 11:00 EST Appointment [facility] Breast Imaging - [facility] S [place] 1 [place], [place] 559871 04/27/2024 12:00 EST Appointment [facility] Hematology & Oncology - [address] [phone] 05/02/2024 15:00 EST Telemedicine [facility] Hematology & Oncology - [address] [phone] Alisson Carreon MD [address] [place] [address], [facility], Level 2 [place] [phone] 05/04/2024 10:15 EST Ancillary Procedure [facility] Cardiology - [place] [address] 05/04/2024 11:30 EST Appointment [facility] Hematology & Oncology - [address] [phone] 05/04/2024 12:00 EST Appointment [facility] Hematology & Oncology - [address] [address] 06/12/2024 13:00 EST Appointment [facility] Radiology CT - [address] [phone] documented as of this encounter Visit Diagnoses Not on filedocumented in this encounter Care Teams Butt Presser Relationship Specialty Start Date End Date Linda Blancas MD [address] [place] [address] 30 [place] [address] PCP - General 01/06/11 Adolfo Carreno MD [address] [place] [phone] General Surgery 04/26/19 Augustina Colin MD PhD [address] [place] [phone] Medical Oncology 04/26/19 documented as of this encounter
--- OUTSIDE RECORDS SUMMARY | 2024-03-20 14:51 | XMS_ITS | Encounter Summary ---
Author Organization [facility] Address [address] [place] [address] Care Team Providers Care Asphalt Spreader Name Role Phone Linda Blancas MD Primary Care Provider [phone] Adolfo Carreno MD Unavailable [phone] Augustina Colin MD PhD Unavailable Unavailable Reason for Visit * Reason Onset Date Comments Appointment Related 11/25/2021 Encounter Details Date Type Department Care Team (Late st Contact Info) Description 11/25/2021 Telephone [facility] Center Hematology & Oncology - Main [place] [address] [place], [place] 599[address] Augustina Colin, PhD Appointment Related Social History [...] encounter Miscellaneous Notes * Telephone Encounter - Roderick Field - 11/25/2021 [address] scan of abdomen at 10:45am should she go to the scan first or see Dr. Colin. 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 documented in this encounter Plan of Treatment Upcoming Encounters Date Type Department Care Team (Late st Contact Info) Description 04/02/2024 10:30 EDT Appointment [facility] Interventional Radiology Unit [address] [place] [address] [phone] 04/02/2024 15:15 EDT Office Visit [facility] Surgical Oncology - [address] [phone] Adolfo Carreno MD [address] [place] [phone] 04/05/2024 9:30 EDT Telemedicine [facility] - [facility] Palliative Care Services [address] [place] [address] [phone] Chichi Woods MD [address] [place] [address], [address] [phone] 04/11/2024 15:00 EDT Telemedicine [facility] Hematology & Oncology - [address] [phone] Alisson Carreon MD [address] [place] [address] 2 [place] [phone] 04/13/2024 13:30 EDT Appointment [facility] Hematology & Oncology - [address] [phone] 04/13/2024 14:00 EDT Appointment [facility] Hematology & Oncology - [address] [address] 04/16/2024 10:00 EST Telemedicine [facility] - [facility] Palliative Care Services [address] [place] [address] [phone] Chichi Woods MD [address] [place] [address], [address] [phone] 04/24/2024 9:00 EST Appointment [facility] Radiology CT Outpatient - [address] [id number] 04/24/2024 11:00 EST Appointment [facility] Breast Imaging - [facility] S [address] 239461 04/27/2024 12:00 EST Appointment [facility] Hematology & Oncology [address] [phone] 05/02/2024 15:00 EST Telemedicine [facility] Hematology & Oncology - [address] [address] Alisson Carreon MD [address] [place] [address], Level [address] [place] [phone] 05/04/2024 10:15 EST Ancillary Procedure [facility] Cardiology - [address] [place], [place] [phone] 05/04/2024 11:30 EST Appointment [facility] Hematology & Oncology - [address] [address] 05/04/2024 12:00 EST Appointment [facility] Cancer Center Hematology & Oncology - [address] [address] 06/12/2024 13:00 EST [facility]ointment [facility] Radiology [facility] - [address] [address] documented as of this encounter Visit Diagnoses Not on filedocumented in this encounter Additional Health Concerns Infection Onset Date Last Indicated Resolved Time R/O COVID-19 12/12/2023 12/12/2023 12/12/2023 15:3 5 EDT R/O COVID-19 01/08/2024 01/08/2024 01/08/2024 18:2 6 EDT R/O COVID-19 01/16/2024 01/16/2024 01/16/2024 17:5 0 EDT documented as of this encounter Care Teams Asphalt Spreader Relationship Specialty Start Date End Date Linda Blancas MD [facility] [address] [place] [address] PCP - General 01/06/11 Adolfo Carreno MD [address] [place] [address] [phone] General Surgery 04/26/19 Augustina Colin MD PhD [address] [place] [phone] Medical Oncology 04/26/19 documented as of this encounter
--- OUTSIDE RECORDS SUMMARY | 2024-03-20 14:51 | XMS_ITS | Encounter Summary ---
Author Organization [facility] Address [address] [place] [address] Care Team Providers Care Billing Assistant Name Role Phone Linda Blancas MD Primary Care Provider [phone] Adolfo Carreno MD Unavailable [phone] Augustina Colin MD PhD Unavailable Unavailable Encounter Details Date Type Department Care Team (Late st Contact Info) Description 11/25/2021 Orders Only [facility] Cancer Center Hematology & Oncology - [facility] [address] [place] [address] Augustina Colin, PhD Social History Tobacco Use [...] EDT Appointment [facility] Interventional Radiology Unit [address] [place] [address] [phone] 04/02/2024 15:15 EDT Office Visit [facility] Surgical Oncology - [address] [phone] Adolfo Carreno MD [address] [place] [phone] 04/05/2024 9:30 EDT Telemedicine [facility] - [facility] Palliative Care Services [address] [place] [address] [phone] Chichi Woods MD [address] [place] [phone] 04/11/2024 15:00 EDT Telemedicine [facility] Hematology & Oncology [address] [phone] Alisson Carreon MD [address] [place] [address] [phone] 04/13/2024 13:30 EDT Appointment [facility] Hematology & Oncology [address] 188801 04/13/2024 14:00 EDT Appointment [facility] Hematology & Oncology [address] 735781 04/16/2024 10:00 EST Telemedicine [facility] - [facility] Palliative Care Services [address] [place] [address] [phone] Chichi Woods MD [address] [place] [address], [address] [phone] 04/24/2024 9:00 EST Appointment [facility] Radiology CT Outpatient - [address] 436131 04/24/2024 11:00 EST Appointment [facility] Breast Imaging - [facility] S [place] 1 [place], [place] 556341 04/27/2024 12:00 EST Appointment [facility] Hematology & Oncology - [address] [phone] 05/02/2024 15:00 EST Telemedicine [facility] Hematology & Oncology - [address] [address] Alisson Carreon MD [address] [place] [address], [place] [facility], Level [address] [place] [phone] 05/04/2024 10:15 EST Ancillary Procedure [facility] Cardiology - [address] [place], [place] [phone] 05/04/2024 11:30 EST Appointment [facility] Hematology & Oncology - [address] [phone] 05/04/2024 12:00 EST Appointment [facility] Hematology & Oncology [address] [phone] 06/12/2024 13:00 EST Appointment [facility] Radiology CT - [address] [phone] documented as of this encounter Visit Diagnoses Not on filedocumented in this encounter Care Teams Billing Assistant Relationship Specialty Start Date End Date Linda Blancas MD [facility] [address] [place] [address] PCP - General 01/06/11 Adolfo Carreno MD [address] [place] [address], [facility] 2 [place] [phone] General Surgery 04/26/19 Augustina Colin MD PhD [address] [place] [address], [facility] 2 [place] [phone] Medical Oncology 04/26/19 documented as of this encounter
--- OUTSIDE RECORDS SUMMARY | 2024-03-20 14:51 | XMS_ITS | Encounter Summary ---
Author Organization [facility] Address [address] [place] [address] Care Team Providers Care Slitter And Rewinder Machine Operator Name Role Phone Linda Blancas MD Primary Care Provider [phone] Adolfo Carreno MD Unavailable [phone] Augustina Colin MD PhD Unavailable Unavailable Encounter Details Date Type Department Care Team (Latest Contact Info) Description 10/29/2021 13:00 EDT Phlebotomy Only [facility] Cancer Center Hematology & Oncology - Main [place] [address] [place] [address] Blood Doctor, [facility] Hem Onc Metastatic breast cancer (HCC-CMS) (HCC) [...] as of this encounter Progress Notes * Sheri Chandler MA - 10/29/2021 1300 EDT Venipuncture performed for Dittus Per orders of Dittus Number of attempts 1, left AC I was supervised by John who was present and immediately available in the office suite. SHERI CHANDLER MA 10/29/2021 14:13 documented in this encounter Plan of Treatment Upcoming Encounters Date Type Department Care Team (Late st Contact Info) Description 04/02/2024 10:30 EDT Appointment [facility] Interventional Radiology Unit [address] [place] [address] [phone] 04/02/2024 15:15 EDT Office Visit [facility] Surgical Oncology - [address] [phone] Adolfo Carreno MD 111 [facility], [facility] 2 [place] [phone] 04/05/2024 9:30 EDT Telemedicine [facility] Palliative Care Services [address] [place], [place] [phone] Chichi Woods MD [address] [place] [address] [phone] 04/11/2024 15:00 EDT Telemedicine [facility] Hematology & Oncology - [address] [phone] Alisson Carreon MD [address] [place] [address], Level [address] [place] [phone] 04/13/2024 13:30 EDT Appointment [facility] Hematology & Oncology - [address] [phone] 04/13/2024 14:00 EDT Appointment [facility] Hematology & Oncology - [address] [phone] 04/16/2024 10:00 EST Telemedicine [facility] - [facility] Palliative Care Services [address] [place] [address] [phone] Chichi Woods MD [address] [place] [address], [address] [phone] 04/24/2024 9:00 EST Appointment [facility] Radiology CT Outpatient - [address] [id number] 04/24/2024 11:00 EST Appointment [facility] Breast Imaging - [facility] S [address] 147301 04/27/2024 12:00 EST Appointment [facility] Hematology & Oncology - [address] [phone] 05/02/2024 15:00 EST Telemedicine [facility] Hematology & Oncology - [address] [phone] Alisson Carreon MD [address] [place] [address], Level [address] [place] [phone] 05/04/2024 10:15 EST Ancillary Procedure [facility] Cardiology - [address] [place], [place] [phone] 05/04/2024 11:30 EST Appointment [facility] Hematology & Oncology - [address] [address] 05/04/2024 12:00 EST Appointment [facility] Hematology & Oncology - [address] [address] 06/12/2024 13:00 EST Appointment [facility] Radiology CT - [address] [address] documented as of this encounter Procedures Procedure Name Priority Date/Time Associated Diagnosis Comments DIFFERENTIAL, AUTOMATED MANUAL Today 10/29/2021 14:25 EDT Metastatic breast cancer (HCC-CMS) (HCC) (HCC-CMS) COMPREHENSIVE METABOLIC PANEL (ONCOLOGY USE ONLY-INC MG) STAT 10/29/2021 14:25 EDT Metastatic breast cancer (HCC-CMS) (HCC) (HCC-CMS) COMPLETE BLOOD COUNT AND DIFFERENTIAL STAT 10/29/2021 14:25 EDT Metastatic breast cancer (HCC-CMS) (HCC) (HCC-CMS) documented in this encounter Results * (ABNORMAL) DIFFERENTIAL, AUTOMATED MANUAL (10/29/2021 14:25 EDT) % Neutrophils 38.3 % 10/29/2021 15:16 [facility] % Lymphocytes 55.7 % 10/29/2021 15:16 [facility] % Atypical Lymphocytes 1.7 % 10/29/2021 15:16 [facility] % Monocytes 1.7 % 10/29/2021 15:16 [facility] % Eosinophils 2.6 % 10/29/2021 15:16 [facility] Absolute Neutrophils 1.49(L) 2.20 - 8.85 K/cmm 10/29/2021 15:16 [facility] Absolute Lymphocytes 2.17 1.09 - 3.30 K/cmm 10/29/2021 15:16 [facility] Absolute Atypical Lymphocytes 0.07 K/cmm 10/29/2021 15:[address] [facility] Absolute Monocytes 0.07(L) 0.10 - 0.80 K/cmm 10/29/2021 15:[address] [facility] Absolute Eosinophils 0.10 0.03 - 0.61 K/cmm 10/29/2021 15:[address] [facility] Blood VENOUS BLOOD / Unknown Venipuncture / Unknown 10/29/2021 14:25 EDT 10/29/2021 14:36 EDT Augustina Colin MD PhD HEMATOLOGY & PF4 ORD ERABLES [facility] [address] [place] [address] * (ABNORMAL) COMPLETE BLOOD COUNT AND DIFFERENTIAL (10/29/2021 14:25 EDT) WBC 3.89(L) 4.00 - 12.40 K/cmm 10/29/2021 14:48 [facility] RBC 3.36(L) 3.86 - 5.04 M/cmm 10/29/2021 14:48 [facility] Hemoglobin 12.5 11.6 - 15.2 gm/dL 10/29/2021 14:48 [facility] HCT 36.4 34.9 - 44.4 % 10/29/2021 14:48 [facility] MCV 108(H) 81 - 98 fl 10/29/2021 14:48 [facility] MCH 37.2(H) 26.7 - 33.3 pg 10/29/2021 14:48 [facility] MCHC 34.3 32.1 - 35.9 gm/dL 10/29/2021 14:48 [facility] RDW-CV 13.2 <14.7 % 10/29/2021 14:48 [facility] RDW-SD 52.3(H) <50.4 fl 10/29/2021 14:48 [facility] PLT 229 141 - 377 K/[facility] 10/29/2021 14:48 [facility] MPV 9.9 9.5 - 12.7 fl 10/29/2021 14:48 [facility] Type of Differential: Manual 10/29/2021 14:48 [facility] Blood VENOUS BLOOD / Unknown Venipuncture / Unknown 10/29/2021 14:25 EDT 10/29/2021 14:36 EDT Augustina Colin MD PhD PACKAGES & DNA PROBE ORDERABLES [facility] [address] [place] [address] * (ABNORMAL) COMPREHENSIVE METABOLIC PANEL (ONCOLOGY USE ONLY-INC MG) (10/29/2021 14:25 EDT) Sodium 142 136 - 145 mmol/L 10/29/2021 14:55 [facility] Potassium 4.1 3.5 - 5.0 mmol/L 10/29/2021 14:55 [facility] Chloride 105 96 - 110 mmol/L 10/29/2021 14:55 [facility] CO2 Total 27 22 - 32 mmol/L 10/29/2021 14:55 [facility] Glucose 103(H) 70 - 100 mg/dL 10/29/2021 14:55 [facility] BUN 19 10 - 26 mg/dL 10/29/2021 14:55 [facility] Creatinine 1.01 0.52 - 1.04 mg/dL 10/29/2021 14:55 [facility] eGFR 64 >60 mL/min/1.7 3m2 10/29/2021 14:55 [facility] Total Protein 7.2 6.3 - 8.2 g/dL 10/29/2021 14:55 [facility] Albumin 4.5 3.4 - 4.9 g/dL 10/29/2021 14:55 [facility] Alkaline Phosphatase 66 38 - 126 U/L 10/29/2021 14:[address] [facility] AST 34 15 - 46 U/L 10/29/2021 14:[address] [facility] ALT 18 <35 U/L 10/29/2021 14:[address] [facility] Bilirubin, Total <0.5 <1.4 mg/dL 10/30/19 14:[address] [facility] Calcium 9.2 8.5 - 10.5 mg/dL 10/29/2021 14:[address] [facility] Magnesium 1.9 1.7 - 2.8 mg/dL 10/29/2021 14:55 [facility] Albumin/Globulin Ratio 1.7 1.0 - 2.5 10/29/2021 14:55 [facility] Anion Gap 10 5 - 14 10/29/2021 14:[address] [facility] Blood VENOUS BLOOD / Unknown Venipuncture / Unknown 10/29/2021 14:25 EDT 10/29/2021 14:36 EDT Augustina Colin MD PhD CHEMISTRY & BLOOD GA S ORDERABLES Performing Organization Address [facility]/State/[facility] Co de Phone Number [facility] [address] [place] [address] documented in this encounter Visit Diagnoses Diagnosis Metastatic breast cancer- Primary documented in this encounter Care Teams Slitter And Rewinder Machine Operator Relationship Specialty Start Date End Date Linda Blancas MD [address] [place] [address] 30 [place] [address] PCP - General 01/06/11 Adolfo Carreno MD [address] [place] [phone] General Surgery 04/26/19 Augustina Colin MD PhD [address] [place] [phone] Medical Oncology 04/26/19 documented as of this encounter
--- OUTSIDE RECORDS SUMMARY | 2024-03-20 14:51 | XMS_ITS | Encounter Summary ---
Author Organization [facility] Address [address] [place] [address] Care Team Providers Care Any Commodity Sales Deliverer Name Role Phone Linda Blancas MD Primary Care Provider [phone] Adolfo Carreno MD Unavailable [phone] Augustina Colin MD PhD Unavailable Unavailable Reason for Visit * Reason Onset Date Comments Appointment Related 11/25/2021 Encounter Details Date Type Department Care Team (Late st Contact Info) Description 11/25/2021 Telephone [facility] Cancer Center Hematology & Oncology - Main [place] [address], [place] [id number] Augustina Colin, PhD Appointment Related Social History [...] * Telephone Encounter - Nilson Arciniega - 11/25/2021 0847 EDT lmom for pt about kd 11/26 at 1130 per her request left PAC# documented in this encounter Plan of Treatment Upcoming Encounters Date Type Department Care Team (Late st Contact Info) Description 04/02/2024 10:30 EDT Appointment [facility] Interventional Radiology Unit [address] [place] [address] 04/02/2024 15:15 EDT Office Visit [facility] Surgical Oncology - [address] [phone] Adolfo aCrreno MD [address] [place] [address] [address] [place] [phone] 04/05/2024 9:30 EDT Telemedicine [facility] - [facility] [address] [place] [address] Chichi Woods MD [address] [place] [address], [address] [phone] 04/11/2024 15:00 EDT Telemedicine [facility] Hematology & Oncology - [address] [phone] Alisson Carreon MD [address] [place] [address] 2 [place] [phone] 04/13/2024 13:30 EDT Appointment [facility] Hematology & Oncology - [address] [address] 04/13/2024 14:00 EDT Appointment [facility] Hematology & Oncology - [address] [address] 04/16/2024 10:00 EST Telemedicine [facility] - [facility] [address] [place] [address] [phone] Chichi Woods MD [address] [place] [address], [address] [phone] 04/24/2024 9:00 EST Appointment [facility] Radiology CT Outpatient - [address] 085351 04/24/2024 11:00 EST Appointment [facility] Breast Imaging - [facility] [place] [address] [place], [place] [address] 04/27/2024 12:00 EST Appointment [facility] Hematology & Oncology - [address] [phone] 05/02/2024 15:00 EST Telemedicine [facility] Hematology & Oncology - [address] 915851 Alisson Carreon MD [address] [place] [address], Level 2 [place] [phone] 05/04/2024 10:15 EST Ancillary Procedure [facility] Cardiology - [address] [place], [place] [phone] 05/04/2024 11:30 EST Appointment [facility] Hematology & Oncology - [address] 190481 05/04/2024 12:00 EST Appointment [facility] Hematology & Oncology - [address] [phone] 06/12/2024 13:00 EST Appointment [facility] Center Radiology CT - [address] [phone] documented as of this encounter Visit Diagnoses Not on filedocumented in this encounter Care Teams Any Commodity Sales Deliverer Relationship Specialty Start Date End Date Linda Blancas MD [facility] [address] [place] [address] PCP - General 01/06/11 Adolfo Carreno MD [address] [place] [phone] General Surgery 04/26/19 Augustina Colin MD PhD [address] [place] [phone] Medical Oncology 04/26/19 documented as of this encounter
--- OUTSIDE RECORDS SUMMARY | 2024-03-20 14:51 | XMS_ITS | Encounter Summary ---
Author Organization [facility] Address [address] [place] [address] Care Team Providers Care Mail Messenger Name Role Phone Linda Blancas MD Primary Care Provider [phone] Adolfo Carreno MD Unavailable [phone] Augustina Colin MD PhD Unavailable Unavailable Encounter Details Date Type Department Care Team (Late st Contact Info) Description 11/30/2021 Orders Only [facility] Cancer Center Hematology & Oncology - [facility] [address] [place] [address] aGrima Boyce, SHELLEY Social History Tobacco Use Types [...] by mouth 2 times daily. 84 Tablet 3 11/30/2021 11/30/2021 documented in this encounter Plan of Treatment Upcoming Encounters Date Type Department Care Team (Late st Contact Info) Description 04/02/2024 10:30 EDT Appointment [facility] Interventional Radiology Unit [address] [place] [address] [phone] 04/02/2024 15:15 EDT Office Visit [facility] Surgical Oncology - [address] 600041 Adolfo Carreno MD [address] [place] [address] 2 [place] [phone] 04/05/2024 9:30 EDT Telemedicine [facility] - [facility] [address] [place] [address] [phone] Chichi Woods MD [address] [place] [phone] 04/11/2024 15:00 EDT Telemedicine [facility] Hematology & Oncology [address] [phone] Alisson Carreon MD [address] [place] [address] [phone] 04/13/2024 13:30 EDT Appointment [facility] Hematology & Oncology [address] 632811 04/13/2024 14:00 EDT Appointment [facility] Hematology & Oncology - [address] [address] 04/16/2024 10:00 EST Telemedicine [facility] - [facility] Services [address] [place], [place] 717291 Chichi Woods MD 111 [facility], [address] [phone] 04/24/2024 9:00 EST Appointment [facility] Radiology CT Outpatient - [address] [address] 04/24/2024 11:00 EST Appointment [facility] Breast Imaging - [address] [phone] 04/27/2024 12:00 EST Appointment [facility] Hematology & Oncology - [address] [phone] 05/02/2024 15:00 EST Telemedicine [facility] Hematology & Oncology - [address] [phone] Alisson Carreon MD [address] [place] [address], Level [address] [place] [phone] 05/04/2024 10:15 EST Ancillary Procedure [facility] Cardiology - [address] [place] [address] 05/04/2024 11:30 EST Appointment [facility] Hematology & Oncology - [address] [address] 05/04/2024 12:00 EST Appointment [facility] Hematology & Oncology - [address] [phone] 06/12/2024 13:00 EST Appointment [facility] Center Radiology CT - [address] [address] documented as of this encounter Visit Diagnoses Not on filedocumented in this encounter Additional Health Concerns Infection Onset Date Last Indicated Resolved Time R/O COVID-19 12/12/2023 12/12/2023 12/12/2023 15:3 5 EDT R/O COVID-19 01/08/2024 01/08/2024 01/08/2024 18:2 6 EDT R/O COVID-19 01/16/2024 01/16/2024 01/16/2024 17:5 0 EDT documented as of this encounter Care Teams Mail Messenger Relationship Specialty Start Date End Date Linda Blancas MD [facility] [address] [place] [address] PCP - General 01/06/11 Adolfo Carreno MD [address] [place] [phone] General Surgery 04/26/19 Augustina Colin MD PhD [address] [place] [phone] Medical Oncology 04/26/19 documented as of this encounter
--- OUTSIDE RECORDS SUMMARY | 2024-03-20 14:51 | XMS_ITS | Encounter Summary ---
Author Organization [facility] Address [address] [place] [address] Care Team Providers Care Filenet Developer Name Role Phone Linda Blancas MD Primary Care Provider [phone] Adolfo Carreno MD Unavailable [phone] Augustina Colin MD PhD Unavailable Unavailable Encounter Details Date Type Department Care Team (Late st Contact Info) Description 11/27/2021 Orders Only [facility] Hematology & Oncology - [facility] [address] [place] [address] Kathrin Ashraf, RN Social History Tobacco Use Types Packs/Day [...] as of this encounter Progress Notes * Kathrin Ashraf, RN - 11/27/2021 0900 EDT Faslodex beacon plan d/c'd per Dr. Colin's note due to progression. documented in this encounter Plan of Treatment Upcoming Encounters Date Type Department Care Team (Late st Contact Info) Description 04/02/2024 10:30 EDT Appointment [facility] Interventional Radiology Unit [address] [place] [address] [phone] 04/02/2024 15:15 EDT Office Visit [facility] Surgical Oncology - [address] [phone] Adolfo Carreno MD [address] [place] [address] [phone] 04/05/2024 9:30 EDT Telemedicine [facility] Palliative Care Services [address] [place], [place] [phone] Chichi Woods MD [address] [place] [address], [address] [phone] 04/11/2024 15:00 EDT Telemedicine [facility] Hematology & Oncology - [address] [phone] Alisson Carreon MD [address] [place] [address] 2 [place] [phone] 04/13/2024 13:30 EDT Appointment [facility] Hematology & Oncology - [address] [phone] 04/13/2024 14:00 EDT Appointment [facility] Hematology & Oncology - [address] [phone] 04/16/2024 10:00 EST Telemedicine [facility] - [facility] Palliative Care Services [address] [place] [address] [phone] Chichi Woods MD [address] [place] [address] [phone] 04/24/2024 9:00 EST Appointment [facility] Radiology CT Outpatient - [address] [phone] 04/24/2024 11:00 EST Appointment [facility] Breast Imaging - [facility] [address] [phone] 04/27/2024 12:00 EST Appointment [facility] Hematology & Oncology - [address] [phone] 05/02/2024 15:00 EST Telemedicine [facility] Hematology & Oncology [address] [phone] Alisson Carreon MD [address] [place] [address], [facility] 2 [place] [phone] 05/04/2024 10:15 EST Ancillary Procedure [facility] Cardiology [place] [address] 05/04/2024 11:30 EST Appointment [facility] Hematology & Oncology [address] [phone] 05/04/2024 12:00 EST Appointment [facility] Hematology & Oncology [address] [address] 06/12/2024 13:00 [facility] Radiology CT - [facility] [address] [place], [place] 205651 documented as of this encounter Visit Diagnoses Not on filedocumented in this encounter Care Teams Filenet Developer Relationship Specialty Start Date End Date Linda Blancas MD [facility] [address] [place] [address] PCP - General 01/06/11 Adolfo Carreno MD [address] [place] [address] 2 [place] [phone] General Surgery 04/26/19 Augustina Colin MD PhD [address] [place] [address] 2 [place] [phone] Medical Oncology 04/26/19 documented as of this encounter
--- OUTSIDE RECORDS SUMMARY | 2024-03-20 14:51 | XMS_ITS | Encounter Summary ---
Author Organization [facility] Address [address] [place] [address] Care Team Providers Care Manager Support Name Role Phone Linda Blancas MD Primary Care Provider [phone] Adolfo Carreno MD Unavailable [phone] Augustina Colin MD PhD Unavailable Unavailable Encounter Details Date Type Department Care Team (Latest Contact Info) Description 10/01/2021 13:15 EDT Phlebotomy Only [facility] Center Hematology & Oncology - Main [place] [address] [place] [address] Blood Doctor, [facility] Hem Onc Metastatic breast cancer (HCC-CMS) [...] as of this encounter Progress Notes * Felipe Najera MA - 10/01/2021 1315 EDT Venipuncture performed for Dittus Per orders of Dittus Number of attempts 1 L AC I was supervised by John who was present and immediately available in the office suite. FELIPE NAJERA MA 10/01/2021 13:22 documented in this encounter Plan of Treatment Upcoming Encounters Date Type Department Care Team (Late st Contact Info) Description 04/02/2024 10:30 EDT Appointment [facility] Interventional Radiology Unit [address] [place] [address] [phone] 04/02/2024 15:15 EDT Office Visit [facility] Surgical Oncology - [address] [phone] Adolfo Carreno MD 111 [facility] 2 [place] [phone] 04/05/2024 9:30 EDT Telemedicine [facility] Palliative Care Services [address], [place] [phone] Chichi Woods MD [address] [place] [address], [address] [phone] 04/11/2024 15:00 EDT Telemedicine [facility] Hematology & Oncology - [address] [phone] Alisson Carreon MD [address] [place] [address], Level [address] [place] [phone] 04/13/2024 13:30 EDT Appointment [facility] Hematology & Oncology - [address] [phone] 04/13/2024 14:00 EDT Appointment [facility] Hematology & Oncology - [address] 175091 04/16/2024 10:00 EST Telemedicine [facility] - [facility] Palliative Care Services [address] [place] [address] [phone] Chichi Woods MD [address] [place] [address], [address] [phone] 04/24/2024 9:00 EST Appointment [facility] Radiology CT Outpatient - [address] [phone] 04/24/2024 11:00 EST Appointment [facility] Breast Imaging - [facility] S [address] 205341 04/27/2024 12:00 EST Appointment [facility] Hematology & Oncology - [address] [phone] 05/02/2024 15:00 EST Telemedicine [facility] Hematology & Oncology - [address] 139401 Alisson Carreon MD [address] [place] [address], Level [address] [place] [phone] 05/04/2024 10:15 EST Ancillary Procedure [facility] Cardiology - [address] [place], [place] [phone] 05/04/2024 11:30 EST Appointment [facility] Hematology & Oncology - [address] [address] 05/04/2024 12:00 EST Appointment [facility] Hematology & Oncology - [address] [address] 06/12/2024 13:00 EST Appointment [facility] Radiology CT - [address] [address] documented as of this encounter Procedures Procedure Name Priority Date/Time Associated Diagnosis Comments DIFFERENTIAL, AUTOMATED MANUAL Today 10/01/2021 13:27 EDT Metastatic breast cancer (HCC-CMS) (HCC) (HCC-CMS) COMPREHENSIVE METABOLIC PANEL (ONCOLOGY USE ONLY-INC MG) STAT 10/01/2021 13:27 EDT Metastatic breast cancer (HCC-CMS) (HCC) (HCC-CMS) COMPLETE BLOOD COUNT AND DIFFERENTIAL STAT 10/01/2021 13:27 EDT Metastatic breast cancer (HCC-CMS) (HCC) (HCC-CMS) documented in this encounter Results * (ABNORMAL) DIFFERENTIAL, AUTOMATED MANUAL (10/01/2021 13:27 EDT) % Neutrophils 28.1 % 10/01/2021 14:29 T [facility] % Lymphocytes 59.6 % 10/01/2021 14:29 [facility] % Atypical Lymphocytes 2.6 % 10/01/2021 14:29 [facility] % Monocytes 7.0 % 10/01/2021 14:29 [facility] % Basophils 1.8 % 10/01/2021 14:29 [facility] % Myelocytes 0.9 % 10/01/2021 14:29 [facility] Absolute Neutrophils 1.22(L) 2.20 - 8.85 K/cmm 10/01/2021 14:29 [facility] Absolute Lymphocytes 2.59 1.09 - 3.30 K/cmm 10/01/2021 14:29 EDT [facility] Absolute Atypical Lymphocytes 0.11 K/cmm 10/01/2021 14:29 T [facility] Absolute Monocytes 0.30 0.10 - 0.80 K/cmm 10/01/2021 14:29 T [facility] ABS Basophils 0.08 0.01 - 0.11 K/cmm 10/01/2021 14:29 EDT [facility] Absolute Myelocytes 0.04 K/cmm 10/01/2021 14:29 [facility] Blood VENOUS BLOOD / Unknown Venipuncture / Unknown 10/01/2021 13:27 EDT 10/01/2021 13:30 EDT Augustina Colin MD PhD HEMATOLOGY & PF4 ORD ERABLES Performing Organization Address City/State/[facility] Co de Phone Number [facility] [address] [place] [address] * (ABNORMAL) COMPLETE BLOOD COUNT AND DIFFERENTIAL (10/01/2021 13:27 EDT) WBC 4.35 4.00 - 12.40 K/cmm 10/01/2021 13:55 [facility] RBC 3.41(L) 3.86 - 5.04 M/cmm 10/01/2021 13:55 [facility] Hemoglobin 13.2 11.6 - 15.2 gm/dL 10/01/2021 13:55 [facility] HCT 36.7 34.9 - 44.4 % 10/01/2021 13:55 [facility] MCV 108(H) 81 - 98 fl 10/01/2021 13:55 [facility] MCH 38.7(H) 26.7 - 33.3 pg 10/01/2021 13:55 [facility] MCHC 36.0(H) 32.1 - 35.9 gm/dL 10/01/2021 13:55 [facility] RDW-CV 14.2 <14.7 % 10/01/2021 13:55 [facility] RDW-SD 56.4(H) <50.4 fl 10/01/2021 13:55 [facility] PLT 238 141 - 377 K/cmm 10/01/2021 13:55 [facility] MPV 9.8 9.5 - 12.7 fl 10/01/2021 13:55 [facility] Type of Differential: Manual 10/01/2021 13:55 [facility] Blood VENOUS BLOOD / Unknown Venipuncture / Unknown 10/01/2021 13:27 EDT 10/01/2021 13:30 EDT Augustina Colin MD PhD PACKAGES & DNA PROBE ORDERABLES Performing Organization Address City/State/[facility] Co de Phone Number [facility] [address] [place] [address] * COMPREHENSIVE METABOLIC PANEL (ONCOLOGY USE ONLY-INC MG) (10/01/2021 13:27 EDT) Sodium 142 136 - 145 mmol/L 10/01/2021 13:52 [facility] Potassium 4.2 3.5 - 5.0 mmol/L 10/01/2021 13:52 [facility] Chloride 108 96 - 110 mmol/L 10/01/2021 13:52 [facility] CO2 Total 27 22 - 32 mmol/L 10/01/2021 13:52 [facility] Glucose 97 70 - 100 mg/dL 10/01/2021 13:52 [facility] BUN 19 10 - 26 mg/dL 10/01/2021 13:52 [facility] Creatinine 0.83 0.52 - 1.04 mg/dL 10/01/2021 13:52 [facility] eGFR 81 >60 mL/min/1.7 3m2 10/01/2021 13:52 [facility] Total Protein 7.2 6.3 - 8.2 g/dL 10/01/2021 13:52 [facility] Albumin 4.5 3.4 - 4.9 g/dL 10/01/2021 13:52 [facility] Alkaline Phosphatase 66 38 - 126 U/L 10/01/2021 13:52 [facility] AST 33 15 - 46 U/L 10/01/2021 13:52 [facility] ALT 18 <35 U/L 10/01/2021 13:52 [facility] Bilirubin, Total 0.6 <1.4 mg/dL 10/02/19 13:52 [facility] Calcium 9.7 8.5 - 10.5 mg/dL 10/01/2021 13:52 [facility] Magnesium 2.1 1.7 - 2.8 mg/dL 10/01/2021 13:52 [facility] Albumin/Globulin Ratio 1.7 1.0 - 2.5 10/01/2021 13:52 [facility] Anion Gap 7 5 - 14 10/01/2021 13:52 [facility] Blood VENOUS BLOOD / Unknown Venipuncture / Unknown 10/01/2021 13:27 EDT 10/01/2021 13:30 EDT Augustina Colin MD PhD CHEMISTRY & BLOOD GA S ORDERABLES Performing Organization Address [facility]/State/[facility] Co de Phone Number [facility] [address] [place] [address] documented in this encounter Visit Diagnoses Diagnosis Metastatic breast cancer- Primary documented in this encounter Care Teams Manager Support Relationship Specialty Start Date End Date Linda Blancas MD [facility] [address] [place] [address] PCP - General 01/06/11 Adolfo Carreno MD 111 [facility] 2 [place] [phone] General Surgery 04/26/19 Augustina Colin MD PhD 111 [facility] 2 [place] [address] Medical Oncology 04/26/19 documented as of this encounter
--- OUTSIDE RECORDS SUMMARY | 2024-03-20 14:51 | XMS_ITS | Encounter Summary ---
Author Organization [facility] Address [address] [place] [address] Care Team Providers Care Helicopter Crew Chief Name Role Phone Linda Blancas MD Primary Care Provider Adolfo Carreno MD Unavailable [phone] Augustina Colin MD PhD Unavailable Unavailable Encounter Details Date Type Department Care Team (Late st Contact Info) Description 11/30/2021 Orders Only [facility] Hematology & Oncology - [facility] [address] [place] [address] Garima Boyce RN Metastatic breast cancer (HCC-CMS) [...] Contact Info) Description 04/02/2024 10:30 EDT Appointment [facility] Interventional Radiology Unit [address] [place] [address] [phone] 04/02/2024 15:15 EDT Office Visit [facility] Surgical Oncology - [address] [phone] Adolfo Carreno MD [address] [place] [address] [phone] 04/05/2024 9:30 EDT Telemedicine [facility] Services [address] [place] [address] [phone] Chichi Woods MD [address] [place] [address] [phone] 04/11/2024 15:00 EDT Telemedicine [facility] Hematology & Oncology [address] 323031 Alisson Carreon MD [address] [place] [address] [phone] 04/13/2024 13:30 EDT Appointment [facility] Hematology & Oncology [address] [address] 04/13/2024 14:00 EDT Appointment [facility] Hematology & Oncology - [address] [phone] 04/16/2024 10:00 EST Telemedicine [facility] - [facility] [address] [place] [address] 230011 Chichi Woods MD [address] [address], [address] [phone] 04/24/2024 9:00 EST Appointment [facility] Radiology CT Outpatient - [address] [phone] 04/24/2024 11:00 EST Appointment [facility] Breast Imaging - [address] [phone] 04/27/2024 12:00 EST Appointment [facility] Hematology & Oncology - [address] [phone] 05/02/2024 15:00 EST Telemedicine [facility] Hematology & Oncology - [address] 315001 Alisson Carreon MD [address] [place] [address], Level [address] [place] [phone] 05/04/2024 10:15 EST Ancillary Procedure [facility] Cardiology [place] [place] [address] 05/04/2024 11:30 EST Appointment [facility] Hematology & Oncology - [address] [phone] 05/04/2024 12:00 EST Appointment [facility] Hematology & Oncology - [address] [phone] 06/12/2024 13:00 EST Appointment [facility] Radiology CT - [address] [phone] documented as of this encounter Visit Diagnoses Diagnosis Metastatic breast cancer- Primary documented in this encounter Care Teams Helicopter Crew Chief Relationship Specialty Start Date End Date Linda Blancas MD [facility] [address] [place] [address] PCP - General 01/06/11 Adolfo Carreno MD [address] [place] [address] 2 [place] [phone] General Surgery 04/26/19 Augustina Colin MD PhD [address] [place] [address] 2 [place] [phone] Medical Oncology 04/26/19 documented as of this encounter
--- OUTSIDE RECORDS SUMMARY | 2024-03-20 14:52 | XMS_ITS | Encounter Summary ---
Author Organization [facility] Address [address] [place] [address] Care Team Providers Care Software Installation Engineer Name Role Phone Linda Blancas MD Primary Care Provider [phone] Adolfo Carreno MD Unavailable [phone] Augustina Colin MD PhD Unavailable Unavailable Encounter Details Date Type Department Care Team (Late st Contact Info) Description 08/26/2021 Specialty Pharmacy [facility] - [facility] [address] [place] [address] Allen Day, [facility] Social History Tobacco Use Types Packs/Day Years [...] Contact Info) Description 04/02/2024 10:30 EDT Appointment [facility] Interventional Radiology Unit [address] [place] [address] [phone] 04/02/2024 15:15 EDT Office Visit [facility] Surgical Oncology - [address] 074331 Adolfo Carreno MD [address] [place] [address] [phone] 04/05/2024 9:30 EDT Telemedicine [facility] - [facility] Palliative Care Services [address] [place] [address] [phone] Chichi Woods MD [address] [place] [address] [phone] 04/11/2024 15:00 EDT Telemedicine [facility]ology [facility] Oncology [address] [phone] Alisson Carreon MD [address] [place] [address] [phone] 04/13/2024 13:30 EDT Appointment [facility] [address] [phone] 04/13/2024 14:00 EDT Appointment [facility] [address] [phone] 04/16/2024 10:00 EST Telemedicine [facility] - [facility] Palliative [facility] Services [address] [place] [address] [phone] Chichi Woods MD [address] [place] [address], [address] [place] [phone] 04/24/2024 9:00 EST Appointment [facility] Radiology CT Outpatient - [address] 885131 04/24/2024 11:00 EST Appointment [facility] Breast Imaging - [facility] [place] [address] [place], [place] 479761 04/27/2024 12:00 EST Appointment [facility] Hematology & Oncology - [address] [phone] 05/02/2024 15:00 EST Telemedicine [facility] Hematology & Oncology - [address] [phone] Alisson Carreon MD [address] [place] [address], Level [address] [place] [phone] 05/04/2024 10:15 EST Ancillary Procedure [facility] Cardiology - [address] [place], [place] [phone] 05/04/2024 11:30 EST Appointment [facility] Hematology & Oncology - [address] [phone] 05/04/2024 12:00 EST Appointment [facility] [address] [phone] 06/12/2024 13:00 EST Appointment [facility] Radiology CT - [address] [phone] documented as of this encounter Visit Diagnoses Not on filedocumented in this encounter Care Teams Software Installation Engineer Relationship Specialty Start Date End Date Linda Blancas MD [facility] [address] [place] [address] PCP - General 01/06/11 Adolfo Carreno MD [address] [place] [address], [facility] [address] [place] [phone] General Surgery 04/26/19 Augustina Colin MD PhD [address] [place] [address], [address] [phone] Medical Oncology 04/26/19 documented as of this encounter
--- OUTSIDE RECORDS SUMMARY | 2024-03-20 14:52 | XMS_ITS | Encounter Summary ---
Author Organization [facility] Address [address] [place] [address] Care Team Providers Care Inventory And Pricing Associate Name Role Phone Linda Blancas MD Primary Care Provider [phone] Adolfo Carreno MD Unavailable [phone] Augustina Colin MD PhD Unavailable Unavailable Reason for Visit * Reason Comments Injections * Episode Based Medications (Routine) - Closed Specialty Diagnoses / Procedures Referred By [facility] Referred To Contact Diagnoses Malignant neoplasm of right female breast, unspecified estrogen receptor status, unspecified site of breast (HCC-CMS) Augustina Colin MD PhD [facility] Ep2 Infusion [address] [place] [address] Referral ID Status Reason Start Date Expiration Date Visits Re quested Visits Authorized [id number] Closed 08/19/2021 06/12/2022 1 1 Encounter Details Date Type Department Care Team (Latest Contact Info) Description 09/03/2021 13:25 EDT - 09/03/2021 23:59 EDT Hospital Encounter [facility] Cancer Center Hematology & Oncology - [facility] [address] [place], [place] [phone] Malignant neoplasm of right female breast, unspecified [...] Sexual Orientation Bisexual 08/26/2022 10 :47 EDT COVID-19 Exposure Response Date Recorded In the last 10 days, have yo u been in contact with someone who was confirmed or suspected to have Coronavirus/COVID-19? No / Unsure 08/31/2021 10:30 EDT documented as of this encounter Last Filed Vital Signs Vital Sign Reading Time Taken Comments Blood Pressure 112/78 09/03/2021 1343 EDT Pulse 87 09/03/2021 1343 EDT Temperature 35.6 ??C (96.1 ??F) 09/03/2021 1343 EDT Respiratory Rate 16 09/03/2021 1343 EDT Oxygen Saturation 100% 09/03/2021 1343 EDT Inhaled Oxygen Concentration - - Weight 64.6 kg (142 lb 6.4 oz) 09/03/2021 1343 E DT Height - - Body Mass Index 26.82 05/14/2021 1238 EST documented in this encounter [...] Tablets by mouth as needed. 12/07/2023 mv-mn/C/glutamin/lysin /[id number] (AIRBORNE, ASCORBATE SODIUM, ORAL) Take by mouth [...] documented in this encounter Progress Notes * Yuliana Vásquez, RN - 09/03/2021 1400 EDT Sendy is here for monthly injections of fulvestrant. This is cycle 20. She feels well, claims a great life and has no complaints regarding treatment. I administered the IM injections into her right and left upper outer gluteus region and she tolerated them well. Band aids placed at the sites. Small drop of blood noted on each band aid. Sendy had no concerns and understands to contact team with any changes or questions. I was supervised by Dr. Rolle who was present at the clinic and immediately available Yuliana Vásquez RN 09/03/2021 documented in this encounter Miscellaneous Notes * Addendum Note - Yovana Peter - 09/03/2021 1400 EDTEncounter addended by: Yovana Peter on: 09/13/2021 12:34 Actions taken: Charge Capture section accepted documented in this encounter Plan of Treatment Upcoming Encounters Date Type Department Care Team (Late st Contact Info) Description 04/02/2024 10:30 EDT Appointment [facility] Interventional Radiology Unit [address] [place] [address] [phone] 04/02/2024 15:15 EDT Office Visit [facility] Surgical Oncology - [address] [phone] Adolfo Carreno MD [address] [place] [address] 2 [place] [phone] 04/05/2024 9:30 EDT Telemedicine [facility] - [facility] Palliative Care Services [address] [place] [address] [phone] Chichi Woods MD [address] [place] [address] [phone] 04/11/2024 15:00 EDT Telemedicine [facility] Hematology & Oncology - [address] [phone] Alisson Carreon MD [address] [place] [address] [phone] 04/13/2024 13:30 EDT Appointment [facility] Hematology & Oncology - [address] [phone] 04/13/2024 14:00 EDT Appointment [facility] Hematology & Oncology - [address] [address] 04/16/2024 10:00 EST Telemedicine [facility] - [facility] Palliative Care Services [address] [place] [address] [phone] Chichi Woods MD [address] [place] [address], [address] [phone] 04/24/2024 9:00 EST Appointment [facility] Radiology CT Outpatient - [address] [id number] 04/24/2024 11:00 EST Appointment [facility] Breast Imaging - [address] 552001 04/27/2024 12:00 EST Appointment [facility] Hematology & Oncology - [address] [phone] 05/02/2024 15:00 EST Telemedicine [facility] Hematology & Oncology [address] [phone] Alisson Carreon MD [address] [place] [address], [address] [place] [phone] 05/04/2024 10:15 EST Ancillary Procedure [facility] Cardiology - [place] [address] 05/04/2024 11:30 EST Appointment [facility] Hematology & Oncology [address] [address] 05/04/2024 12:00 EST Appointment [facility] Hematology & Oncology - [address] [phone] 06/12/2024 13:00 EST [facility]ment [facility] Radiology [facility] - [address] [address] documented as of this encounter Visit Diagnoses Diagnosis Malignant neoplasm of right female breast, unspecified estrogen receptor status, unspecified site of breast (HCC-CMS)- Primary documented in this encounter Administered Medications Inactive Administered Medications - up to 3 most recent administrations Medication Order MAR Action Action Date Dose Rate Site fulvestrant (FASLODEX) injection 500 mg 500 mg, intramuscular, NOW X1, 1 dose, On Michelle 09/03/21 at 1415, Routine Given 09/03/2021 14:21 EDT 500 mg Left Gluteus Medius/Ventrogluteal documented in this encounter Orders Appointment Requests Count Last Ordered Date Fi rst Ordered Date ONCBCN INJECTION APPOINTMENT REQUEST 1 08/12 documented in this encounter Care Teams Inventory And Pricing Associate Relationship Specialty Start Date End Date Linda Blancas MD [facility] [address] [place] [address] PCP - General 01/06/11 Adolfo Carreno MD [address] [place] [address], [facility] [address] [place] [phone] General Surgery 04/26/19 Augustina Colin MD PhD [address] [place] [address] [address] [place] [phone] Medical Oncology 04/26/19 documented as of this encounter
--- OUTSIDE RECORDS SUMMARY | 2024-03-20 14:52 | XMS_ITS | Encounter Summary ---
Author Organization [facility] Address [address] [place] [address] Care Team Providers Care Counter Top Assembler Name Role Phone Linda Blancas MD Primary Care Provider [phone] Adolfo Carreno MD Unavailable [phone] Augustina Colin MD PhD Unavailable Unavailable Encounter Details Date Type Department Care Team (Late st Contact Info) Description 08/03/2021 Specialty Pharmacy [facility] Ambulatory Pharmacy - [facility] [address] [place], [place] 444651 Allen Day, [facility] MARY BLACK [...] Contact Info) Description 04/02/2024 10:30 EDT Appointment [facility] Interventional Radiology Unit [address] [place] [address] [phone] 04/02/2024 15:15 EDT Office Visit [facility] Surgical Oncology - [address] [phone] Adolfo Carreno MD [address] [place] [address] [phone] 04/05/2024 9:30 EDT Telemedicine [facility] - [facility] Palliative Care Services [address] [place] [address] [phone] Chichi Woods MD [address] [place] [address] [phone] 04/11/2024 15:00 EDT Telemedicine [facility] Hematology & Oncology [address] [phone] Alisson Carreon MD [address] [place] [address] [phone] 04/13/2024 13:30 EDT Appointment [facility] Hematology & Oncology [address] [phone] 04/13/2024 14:00 EDT Appointment [facility] Hematology & Oncology [address] [phone] 04/16/2024 10:00 EST Telemedicine [facility] - [facility] Palliative Care Services [address] [place] [address] [phone] Chichi Woods MD [address] [place] [address], [address] [place] [phone] 04/24/2024 9:00 EST Appointment [facility] Radiology CT Outpatient - [address] [phone] 04/24/2024 11:00 EST Appointment [facility] Breast Imaging - [facility] [place] [address] [place], [place] 905251 04/27/2024 12:00 EST Appointment [facility] Hematology & Oncology - [address] [phone] 05/02/2024 15:00 EST Telemedicine [facility] Hematology & Oncology - [address] [phone] Alisson Carreon MD [address] [place] [address], Level [address] [place] [phone] 05/04/2024 10:15 EST Ancillary Procedure [facility] Cardiology - [address] [place], [place] [phone] 05/04/2024 11:30 EST Appointment [facility] Hematology & Oncology - [address] [phone] 05/04/2024 12:00 EST Appointment [facility] Hematology & Oncology [address] [phone] 06/12/2024 13:00 EST Appointment [facility] Radiology CT - [address] [phone] documented as of this encounter Visit Diagnoses Not on filedocumented in this encounter Care Teams Counter Top Assembler Relationship Specialty Start Date End Date Linda Blancas MD [facility] [address] [place] [address] PCP - General 01/06/11 Adolfo Carreno MD [address] [place] [address], [facility] [address] [place] [phone] General Surgery 04/26/19 Augustina Colin MD PhD [address] [place] [address], [address] [phone] Medical Oncology 04/26/19 documented as of this encounter
--- OUTSIDE RECORDS SUMMARY | 2024-03-20 14:52 | XMS_ITS | Encounter Summary ---
Author Organization [facility] Address [address] [place] [address] Care Team Providers Care Corporate Accountant Name Role Phone Linda Blancas MD Primary Care Provider [phone] Adolfo Carreno MD Unavailable [phone] Augustina Colin MD PhD Unavailable Unavailable Reason for Referral * Radiology Services (Routine/Next Available) - Closed Specialty Diagnoses / Procedures [facility] Radiology Diagnoses Malignant neoplasm of right female breast, unspecified estrogen receptor status, unspecified site of breast ([facility]) Procedures MR ABDOMEN W WO Augustina Hollingsworth MD PhD [facility] Referral ID Status Reason Start Date Expiration Date Visits Re quested Visits Authorized [id number] Closed 07/10/2021 01/06/2022 1 1 Reason for Visit * Radiology Services (Routine/Next Available) - Closed Specialty Diagnoses / Procedures [facility]erred To Contact Radiology Diagnoses Malignant neoplasm of right female breast, unspecified estrogen receptor status, unspecified site of breast ([facility]) Procedures MR ABDOMEN W WO CONTRAST Augustina Colin MD PhD [facility] Referral ID Status Reason Start Date Expiration Date Visits Re quested Visits Authorized [id number] Closed 07/10/2021 01/06/2022 1 1 Encounter Details Date Type Department Care Team (Latest Contact Info) Description 08/11/2021 9:39 EST - 08/11/2021 23:59 EST Hospital Encounter [address] [facility] [address] [facility] [address] [place], [place] [id number] Malignant neoplasm of right female breast, unspecified estrogen receptor status, unspecified site of breast ([facility]) ([facility]) ([facility]) Discharge Disposition: Home or Self Care [...] Tablets by mouth as needed. 12/07/2023 mv-mn/C/glutamin/lysin /[id number] (AIRBORNE, ASCORBATE SODIUM, ORAL) Take by mouth [...] EDT Appointment [facility] Interventional Radiology Unit [address] [place] [address]321 04/02/2024 15:15 EDT Office Visit [facility] Surgical Oncology - [facility] [address] [place], [place] [phone] Adolfo Carreno MD [address] [facility], Level [address] [place] [phone] 04/05/2024 9:30 EDT Telemedicine [facility] - [facility] Palliative Care Services [address] [place], [place] [phone] Chichi Woods MD 111 [facility], [address] [phone] 04/11/2024 15:00 EDT Telemedicine [facility] Hematology & Oncology - [address] [phone] Alisson Carreon MD [address] [place] [address], [facility] [address] [place] [phone] 04/13/2024 13:30 EDT Appointment [facility] Hematology & Oncology - [address] [phone] 04/13/2024 14:00 EDT Appointment [facility] Hematology & Oncology - [address] [address] 04/16/2024 10:00 EST Telemedicine [facility] - [facility] Palliative Care Services [address] [place] [address] [phone] Chichi Woods MD [address] [place] [address], [address] [phone] 04/24/2024 9:00 EST Appointment [facility] Radiology CT Outpatient - [address] [id number] 04/24/2024 11:00 EST Appointment [facility] Breast Imaging - [address] [id number] 04/27/2024 12:00 EST Appointment [facility] Hematology & Oncology - [address] [phone] 05/02/2024 15:00 EST Telemedicine [facility] Hematology & Oncology - [address] [phone] Alisson Carreon MD [address] [place] [address], [facility] [address] [place] [phone] 05/04/2024 10:15 EST Ancillary Procedure [facility] Cardiology - [address] [place] [address] 05/04/2024 11:30 EST Appointment [facility] Hematology & Oncology [address] [address] 05/04/2024 12:00 EST Appointment [facility] Hematology & Oncology [address] [address] 06/12/2024 13:00 EST Appointment [facility] Radiology CT - [address] 980201 documented as of this encounter Procedures Procedure Name Priority Date/Time Associated Diagnosis Comments MR ABDOMEN W WO CONTRAST Routine 08/11/2021 10:48 EST Malignant neoplasm of right female breast, unspecified estrogen receptor status, unspecified site of breast (HCC-CMS) (HCC) (HCC-CMS) documented in this encounter Results * MR ABDOMEN W WO CONTRAST (08/11/2021 10:48 EST) Anatomical Region Laterality Modality Body, Abdomen Magnetic Resonan ce 08/11/2021 14:2 8 EST Impressions 08/11/2021 14:28 EST Stable to minimal decrease in size of previously seen hepatic metastases. No new lesions identified. I have personally reviewed the images and the above interpretation and agree with the findings. Narrative 08/11/2021 14:28 EST MR ABDOMEN W WO CONTRAST ??08/11/2021 10:00 AM Signs and Symptoms/Comments: ?? cancer Technique: Dc-oom-ewr-of-phase, T2-weighted, diffusion weighted images were followed by dynamic gadolinium enhanced T1 fat-suppressed gradient echo images of the abdomen. Subtraction imaging performed. Comparison: MRI abdomen 06/09/2021 Findings: Lower chest: Bilateral breast implants. Hepatobiliary: Again seen are multiple mildly T2 hyperintense hypoenhancing lesions throughout the liver. Most lesions show no significant change, but lesions on be 800 image 156 measured 10 mm each today, previously 12 mm each. No new lesions are identified. No intrahepatic or extrahepatic biliary biliary ductal dilation. Normal gallbladder. Spleen, pancreas, adrenal glands: The spleen, pancreas, and adrenal glands are unremarkable. Kidneys, proximal ureters: Punctate right renal cyst. No hydronephrosis. The personally ureters are normal. Bowel: No bowel wall thickening or inflammation. Peritoneal cavity: No free fluid. Lymphovascular: The major abdominal vasculature is unremarkable. No pathologically enlarged lymph nodes. Abdominal wall: No bowel containing hernia. Musculoskeletal: No abnormal bone marrow signal. Posterior spinal fusion hardware in the lower lumbar spine. Localizer: No additional abnormality. Procedure Note Kaylyn Nix MD - 08/11/2021 MR ABDOMEN W WO CONTRAST 08/11/2021 10:00 AM Signs and Symptoms/Comments: cancer Technique: Ik-xdo-gbr-of-phase, T2-weighted, diffusion weighted images were followedby dynamic gadolinium enhanced T1 fat-suppressed gradient echo images ofthe abdomen. Subtraction imaging performed. Comparison: MRI abdomen 06/09/2021 Findings: Lower chest: Bilateral breast implants. Hepatobiliary: Again seen are multiple mildly T2 hyperintensehypoenhancing lesions throughout the liver. Most lesions show nosignificant change, but lesions on be 800 image 156 measured 10 mm eachtoday, previously 12 mm each. No new lesions are identified. Nointrahepatic or extrahepatic biliary biliary ductal dilation. Normalgallbladder. Spleen, pancreas, adrenal glands: The spleen, pancreas, and adrenal glandsare unremarkable. Kidneys, proximal ureters: Punctate right renal cyst. No hydronephrosis.The personally ureters are normal. Bowel: No bowel wall thickening or inflammation. Peritoneal cavity: No free fluid. Lymphovascular: The major abdominal vasculature is unremarkable. Nopathologically enlarged lymph nodes. Abdominal wall: No bowel containing hernia. Musculoskeletal: No abnormal bone marrow signal. Posterior spinal fusionhardware in the lower lumbar spine. Localizer: No additional abnormality. IMPRESSION Stable to minimal decrease in size of previously seen hepatic metastases.No new lesions identified. I have personally reviewed the images and [...] Once in imaging, 1 dose, Starting on Tue08/11/21 at 0950, Until Tue08/11/21 at 1048, Routine, Imaging Protocol Orders Given 08/11/2021 10:48 EST 13 mL documented in this encounter Care Teams Corporate Accountant Relationship Specialty Start Date End Date Linda Blancas MD [facility] [address] [place] [address] PCP - General 01/06/11 Adolfo Carreno MD [address] [place] [address] 2 [place] [address] General Surgery 04/26/19 Augustina Colin MD PhD [address] [place] [address], [facility] [address] [place] [phone] Medical Oncology 04/26/19 documented as of this encounter
--- OUTSIDE RECORDS SUMMARY | 2024-03-20 14:52 | XMS_ITS | Encounter Summary ---
Author Organization [facility] Address [address] [place] [address] Care Team Providers Care Automatic Stacker Name Role Phone Linda Blancas MD Primary Care Provider [phone] Adolfo Carreno MD Unavailable [phone] Augustina Colin MD PhD Unavailable Unavailable Reason for Referral * Prior Authorization (See Order Priority) - Closed Specialty Diagnoses / Procedures Referred By Contac t Referred To Contact Infusion Therapy Diagnoses Malignant neoplasm of right female breast, unspecified estrogen receptor status, unspecified site of breast ([facility]) Osteopenia of necks of both femurs Augustina Colin MD PhD [facility] [address] [place] [address] Referral ID Status Reason Start Date Expiration Date V isits Requested Visits Authorized [id number] Closed Specialty Services Required 08/20/2021 12/25/2021 1 1 Question Answer Is this appt for transfusion, medication, test or injection? Infusion How many infusions need to be ordered for appt? 1 Infusion Name Other Please specify: 4mg Infusion Dose zometa What is the infusion frequency? every 6 m Is this the first dose of infusion(s)? No Have orders been place for this appt? (i.e.: Blood Transfusion Order Set, Therapy Plan, Lab Orders, Supportive Plan, Etc) Yes Comments Please schedule on 08/31 or 09/03 to coordinate with other appts pt has here. thanks Reason for Visit * Prior Authorization (See Order Priority) - Closed Specialty Diagnoses / Procedures Referred By Contac t Referred To Contact Infusion Therapy Diagnoses Malignant neoplasm of right female breast, unspecified estrogen receptor status, unspecified site of breast (HCC-CMS) Osteopenia of necks of both femurs Augustina Colin MD PhD [facility] [address] [place] [address] Referral ID Status Reason Start Date Expiration Date V isits Requested Visits Authorized [id number] Closed Specialty Services Required 08/20/2021 12/25/2021 1 1 Encounter Details Date Type Department Care Team (Latest Contact Info) Description 09/03/2021 9:24 EDT - 09/03/2021 13:24 EDT Hospital Encounter [facility] [address] [place] [address] Malignant neoplasm of right female breast, unspecified estrogen receptor status, unspecified site of breast (HCC-CMS) (HCC) (HCC-CMS) (Primary Dx); Osteopenia of necks of [...] 10:30 EDT documented as of this encounter Functional [...] Tablets by mouth as needed. 12/07/2023 mv-mn/C/glutamin/lysin /[id number] (AIRBORNE, ASCORBATE SODIUM, ORAL) Take by mouth [...] Code Departure Means Destination Home or Self Mcc documented in this encounter Progress Notes * Caro Harrison RN - 09/03/2021 1430 EDT Sunshine Pleitez arrived to [address] Center for Zometa infusion related to diagnosis code of M85.851, M85.852 Identification verified verbally and on patient wristband. Action: A PIV was placed by RN with one attempt pt tolerated well. Premedications:None Main medication: Zometa 4 mg 1458 infusion started. Calcium 9.9 and Creatinine .77 today.1520 infusion completed, pt tolerated infusion well, no s/s of reaction. Zometa was administered and titrated as per manufacturers directions and therapy protocol. PIV/ flushed with NS per protocol, removed, clean, sterile dressing applied; pt tolerated PIV removal with no adverse issues. Patient educated to call if complications or [...] EDT Appointment [facility] Interventional Radiology Unit [address] [place] [address] [phone] 04/02/2024 15:15 EDT Office Visit [facility] Surgical Oncology - [facility] [address] [place], [place] [address] Adolfo Carreno MD 111 [facility], [facility], Level [address] [place] [phone] 04/05/2024 9:30 EDT Telemedicine [facility] - [facility] Palliative Care Services [address] [place] [address] [phone] Chichi Woods MD [address] [place] [address] [address] [place] [phone] 04/11/2024 15:00 EDT Telemedicine [facility] Hematology & Oncology - [address] [phone] Alisson Carreon MD [address] [place] [address], [address] [place] [phone] 04/13/2024 13:30 EDT Appointment [facility] Hematology & Oncology [address] [phone] 04/13/2024 14:00 EDT Appointment [facility] Hematology & Oncology [address] [phone] 04/16/2024 10:00 EST Telemedicine [facility] - [facility] Palliative Care Services [address] [place] [address] [phone] Chichi Woods MD [address] [place] [phone] 04/24/2024 9:[address] [facility] Radiology CT Outpatient - [address] 171101 04/24/2024 11:00 EST Appointment [facility] Breast Imaging - [address] 528261 04/27/2024 12:00 EST Appointment [facility] Hematology & Oncology - [address] [phone] 05/02/2024 15:00 EST Telemedicine [facility] Hematology & Oncology - [address] [phone] Alisson Carreon MD [address] [place], [place] [address], [address] [place] [phone] 05/04/2024 10:15 EST Ancillary Procedure [facility] Cardiology - [address] [place] [address] 05/04/2024 11:30 EST Appointment [facility] Hematology & Oncology [address] [phone] 05/04/2024 12:00 EST Appointment [facility] Hematology & Oncology [address] [id number] 06/12/2024 13:[address] [facility] Radiology CT - [address] 069161 Scheduled Referrals Name Type Priority Associated Diagnoses Order Schedule AMB CONS/FOLLOW UP (SHEP 4 INFUSIONS) Outpatient Referral Routine/Next Available Malignant neoplasm of right female breast, unspecified estrogen receptor status, unspecified site of breast (HCC-CMS) (HCC) (HCC-CMS) Osteopenia of necks of both femurs 1 Occurrences starting 09/03/2021 until 09/03/2021 documented as of this encounter Visit Diagnoses [...] mL/hr, 250 mL, intravenous, CONTINUOUS, Starting on Tue09/03/21 at 1200, Until Tue09/04/21 at 1457, Routine New Bag 09/03/2021 14:58 EDT 250 mL 100 mL/hr zoledronic acid (ZOMETA) 4 mg/100 mL IVPB 4 mg 4 mg, intravenous, Administer over 20 Minutes, NOW X1, 1 dose, On Tue09/03/21 at 1200, Routine New Bag 09/03/2021 14:58 EDT 4 mg 300 mL/hr documented in this encounter Orders Medications Ordered That Vj ht Not Have Been Administered Count Last Ordered Date First Ordered Date alteplase (CATHFLO ACTIVASE) injection 2 mg 1 09/03/2021 diphenhydrAMINE (BENADRYL) injection 50 mg 1 09/03/2021 EPINEPHrine (ADRENALIN) injection 0.3 mg 1 09/03/2021 heparin (PF) lock flush 500 Units 1 022 methylPREDNISolone sod suc(P F) (SOLU-MEDROL) injection 40 mg 1 09/03/2021 sodium chloride 0.9 % (flush) flush 20 mL 1 09/03/2021 Nursing Count Last Ordered Date First Orde red Date INFORMED CONSENT 1 09/03/2021 documented in this encounter Care Teams Automatic Stacker Relationship Specialty Start Date End Date Linda Blancas MD [facility] [address] [place] [address] PCP - General 01/06/11 Adolfo Carreno MD [address] [place], [place] [phone] General Surgery 04/26/19 Augustina Colin MD PhD [address] [place] [phone] Medical Oncology 04/26/19 documented as of this encounter
--- OUTSIDE RECORDS SUMMARY | 2024-03-20 14:52 | XMS_ITS | Encounter Summary ---
Author Organization [facility] Address [address] [place] [address] Care Team Providers Care Mother Repairer Name Role Phone Linda Blancas MD Primary Care Provider [phone] Adolfo Carreno MD Unavailable [phone] Augustina Colin MD PhD Unavailable Unavailable Encounter Details Date Type Department Care Team (Late st Contact Info) Description 08/04/2021 Orders Only [facility] Hematology & Oncology - [facility] [address] [place] [address] Augustina Colin, PhD Social History Tobacco Use [...] Appointment [facility] Interventional Radiology Unit [address] [place] [address] [phone] 04/02/2024 15:15 EDT Office Visit [facility] Surgical Oncology - [address] [phone] Adolfo Carreno MD [address] [place] [phone] 04/05/2024 9:30 EDT Telemedicine [facility] - [facility] Palliative Care Services [address] [place] [address] [phone] Chichi Woods MD [address] [place] [phone] 04/11/2024 15:00 EDT Telemedicine [facility] Hematology & Oncology [address] [phone] Alisson Carreon MD [address] [place] [phone] 04/13/2024 13:30 EDT Appointment [facility] Hematology & Oncology [address] [phone] 04/13/2024 14:00 EDT Appointment [facility] Hematology & Oncology [address] [phone] 04/16/2024 10:00 EST Telemedicine [facility] - [facility] Palliative Care Services [address] [place] [address] [phone] Chichi Woods MD [address] [place] [address], [address] [phone] 04/24/2024 9:00 EST Appointment [facility] Radiology CT Outpatient - [address] [phone] 04/24/2024 11:00 EST Appointment [facility] Breast Imaging - [facility] [address] [place] [address] [place], [place] [address] 04/27/2024 12:00 EST Appointment [facility] Hematology & Oncology - [address] [phone] 05/02/2024 15:00 EST Telemedicine [facility] Hematology & Oncology - [address] [address] Alisson Carreon MD [address] [place] [address], [facility], Level [address] [place] [phone] 05/04/2024 10:15 EST Ancillary Procedure [facility] Cardiology - [address] [place], [place] [phone] 05/04/2024 11:30 EST Appointment [facility] Hematology & Oncology - [address] [phone] 05/04/2024 12:00 EST Appointment [facility] Hematology & Oncology [address] [phone] 06/12/2024 13:00 EST Appointment [facility] Radiology CT - [address] [phone] documented as of this encounter Visit Diagnoses Not on filedocumented in this encounter Care Teams Mother Repairer Relationship Specialty Start Date End Date Linda Blancas MD [facility] [address] [place] [address] PCP - General 01/06/11 Adolfo Carreno MD [address] [place] [address], [facility] 2 [place] [phone] General Surgery 04/26/19 Augustina Colin MD PhD [address] [place] [address], [facility] [address] [place] [phone] Medical Oncology 04/26/19 documented as of this encounter
--- OUTSIDE RECORDS SUMMARY | 2024-03-20 14:52 | XMS_ITS | Encounter Summary ---
Author Organization [facility] Address [address] [place] [address] Care Team Providers Care Private Inquiry Agent Name Role Phone Linda Blancas MD Primary Care Provider [phone] Adolfo Carreno MD Unavailable [phone] Augustina Colin MD PhD Unavailable Unavailable Encounter Details Date Type Department Care Team (Latest Contact Info) Description 08/06/2021 15:00 EST Phlebotomy Only [facility] Hematology & Oncology - Main [place] [address] [place] [address] Blood Doctor, [facility] Hem Onc Metastatic breast cancer (HCC-CMS) [...] Progress Notes * Sheri Chandler MA - 08/06/2021 1500 EST Venipuncture performed for Dittus Per orders of Dittus Number of attempts 3, 2 right AC unsuccessful, 1 left AC successful I was supervised by John who was present and immediately available in the office suite. SHERI CHANDLER MA 08/06/2021 15:12 Successful venipuncture performed by Alina Rodriguez MA documented in this encounter Plan of Treatment Upcoming Encounters Date Type Department Care Team (Late st Contact Info) Description 04/02/2024 10:30 EDT Appointment [facility] Interventional Radiology Unit [address] [place] [address] [phone] 04/02/2024 15:15 EDT Office Visit [facility] Surgical Oncology - [address] [phone] Adolfo Carreno MD 111 [facility], Level 2 [place] [phone] 04/05/2024 9:30 EDT Telemedicine [facility] - [facility] Palliative Care Services [address], [place] [phone] Chichi Woods MD 111 [facility], [address] [phone] 04/11/2024 15:00 EDT Telemedicine [facility] Hematology [facility] - [facility] [address], [place] 745781 Alisson Carreon MD [address] [place] [address], [facility] 2 [place] [phone] 04/13/2024 13:30 EDT Appointment [facility] Hematology [facility] Oncology - [address] [phone] 04/13/2024 14:00 EDT Appointment [facility] - [address] [phone] 04/16/2024 10:00 EST Telemedicine [facility] - [facility] Palliative Care Services [address] [place] [address] [phone] Chichi Woods MD [address] [place] [address], [address] [phone] 04/24/2024 9:00 EST Appointment [facility] Radiology CT Outpatient - [address] [id number] 04/24/2024 11:00 EST Appointment [facility] Breast Imaging - [facility] S [address] 878211 04/27/2024 12:00 EST Appointment [facility] Hematology [facility] Oncology - [address] [phone] 05/02/2024 15:00 EST Telemedicine [facility]ology [facility] Oncology - [address] [phone] Alisson Carreon MD [address] [place] [address], [facility] 2 [place] [phone] 05/04/2024 10:15 EST Ancillary Procedure [facility] Cardiology - [address] [place], [place] [phone] 05/04/2024 11:30 EST Appointment [facility] Oncology - [address] [phone] 05/04/2024 12:00 EST Appointment [facility] Oncology - [address] [address] 06/12/2024 13:00 EST Appointment [facility] Radiology CT - [address] [address] documented as of this encounter Procedures Procedure Name Priority Date/Time Associated Diagnosis Comments COMPREHENSIVE METABOLIC PANEL (ONCOLOGY USE ONLY-INC MG) STAT 08/06/2021 15:34 EST Metastatic breast cancer (HCC-CMS) (HCC) (HCC-CMS) COMPLETE BLOOD COUNT AND DIFFERENTIAL STAT 08/06/2021 15:34 EST Metastatic breast cancer (HCC-CMS) (HCC) (HCC-CMS) documented in this encounter Results * (ABNORMAL) COMPLETE BLOOD COUNT AND DIFFERENTIAL (08/06/2021 15:34 EST) WBC 4.30 4.00 - 12.40 K/cmm 08/06/2021 15:48 [facility] RBC 3.35(L) 3.86 - 5.04 M/cmm 08/06/2021 15:48 [facility] Hemoglobin 12.2 11.6 - 15.2 gm/dL 08/06/2021 15:48 [facility] HCT 34.4(L) 34.9 - 44.4 % 08/06/2021 15:48 [facility] MCV 103(H) 81 - 98 fl 08/06/2021 15:48 [facility] MCH 36.4(H) 26.7 - 33.3 pg 08/06/2021 15:48 [facility] MCHC 35.5 32.1 - 35.9 gm/dL 08/06/2021 15:48 [facility] RDW-CV 15.1(H) <14.7 % 08/06/2021 15:48 [facility] RDW-SD 55.8(H) <50.4 fl 08/06/2021 15:48 [facility] PLT 194 141 - 377 K/cmm 08/06/2021 15:48 [facility] MPV 9.3(L) 9.5 - 12.7 fl 08/06/2021 15:48 [facility] % Neutrophils 30.9 % 08/06/2021 15:48 [facility] % Lymphocytes 57.9 % 08/06/2021 15:48 [facility] % Monocytes 8.4 % 08/06/2021 15:48 [facility] % Eosinophils 1.6 % 08/06/2021 15:48 [facility] % Basophils 1.2 % 08/06/2021 15:48 [facility] % Immature Grans 0.0 % 08/06/19 15:48 [facility] Absolute Neutrophils 1.33(L) 2.20 - 8.85 K/cmm 08/06/2021 15:48 [facility] Absolute Lymphocytes 2.49 1.09 - 3.30 K/cmm 08/06/2021 15:48 [facility] Absolute Monocytes 0.36 0.10 - 0.80 K/cmm 08/06/2021 15:48 [facility] Absolute Eosinophils 0.07 0.03 - 0.61 K/cmm 08/06/2021 15:48 [facility] ABS Basophils 0.05 0.01 - 0.11 K/cmm 08/06/2021 15:48 [facility] Absolute Immature Grans 0.00 0.00 - 0.06 K/cmm 08/06/2021 15:48 [facility] Type of Differential: Auto 08/06/2021 15:48 [facility] Blood VENOUS BLOOD / Unknown Venipuncture / Unknown 08/06/2021 15:34 EST 08/06/2021 15:37 EST Augustina Colin MD PhD PACKAGES & DNA PROBE ORDERABLES [facility] [address] [place] [address] * (ABNORMAL) COMPREHENSIVE METABOLIC PANEL (ONCOLOGY USE ONLY-INC MG) (08/06/2021 15:34 EST) Sodium 140 136 - 145 mmol/L 08/06/2021 16:21 [facility] Potassium 3.9 3.5 - 5.0 mmol/L 08/06/2021 16:21 [facility] Chloride 105 96 - 110 mmol/L 08/06/2021 16:21 [facility] CO2 Total 27 22 - 32 mmol/L 08/06/2021 16:21 [facility] Glucose 118(H) 70 - 100 mg/dL 08/06/2021 16:21 [facility] BUN 22 10 - 26 mg/dL 08/06/2021 16:21 [facility] Creatinine 0.85 0.52 - 1.04 mg/dL 08/06/2021 16:21 [facility] eGFR 75 >60 mL/min/1.7 3m2 08/06/2021 16:21 [facility] Total Protein 6.8 6.3 - 8.2 g/dL 08/06/2021 16:21 [facility] Albumin 4.3 3.4 - 4.9 g/dL 08/06/2021 16:21 [facility] Alkaline Phosphatase 73 38 - 126 U/L 08/06/2021 16:21 [facility] AST 28 15 - 46 U/L 08/06/2021 16:21 [facility] ALT 15 <35 U/L 08/06/2021 16:21 [facility] Bilirubin, Total <0.5 <1.4 mg/dL 08/06/19 16:21 [facility] Calcium 9.3 8.5 - 10.5 mg/dL 08/06/2021 16:21 [facility] Magnesium 1.9 1.7 - 2.8 mg/dL 08/06/2021 16:21 EST [facility] Albumin/Globulin Ratio 1.7 1.0 - 2.5 08/06/2021 16:21 EST [facility] Anion Gap 8 5 - 14 08/06/2021 16:21 EST [facility] Blood VENOUS BLOOD / Unknown Venipuncture / Unknown 08/06/2021 15:34 EST 08/06/2021 15:37 EST Augustina Colin MD PhD CHEMISTRY & BLOOD GA S ORDERABLES [facility] [address] [phone] documented in this encounter Visit Diagnoses Diagnosis Metastatic breast cancer- Primary documented in this encounter Care Teams Private Inquiry Agent Relationship Specialty Start Date End Date Linda Blancas MD [facility] [address] [place] [address] PCP - General 01/06/11 Adolfo Carreno MD [address] [place] [phone] General Surgery 04/26/19 Augustina Colin MD PhD [address] [place] [phone] Medical Oncology 04/26/19 documented as of this encounter
--- OUTSIDE RECORDS SUMMARY | 2024-03-20 14:52 | XMS_ITS | Encounter Summary ---
Author Organization [facility] Address [address] [place] [address] Care Team Providers Care Program Support Specialist Name Role Phone Lnida Blancas MD Primary Care Provider [phone] Adolfo Carreno MD Unavailable [phone] Augustina Colin MD PhD Unavailable Unavailable Encounter Details Date Type Department Care Team (Late st Contact Info) Description 09/29/2021 Orders Only [facility] Cancer Center Hematology & Oncology - [facility] [address] [place] [address] Augustina Colin, PhD Social History Tobacco Use [...] [facility] Interventional Radiology Unit [address] [place] [address] [phone] 04/02/2024 15:15 EDT Office Visit [facility] Surgical Oncology - [address] [phone] Adolfo Carreno MD [address] [place] [address] 2 [place] [phone] 04/05/2024 9:30 EDT Telemedicine [facility] Palliative Care Services [address] [place] [address] [phone] Chichi Woods MD [address] [place] [phone] 04/11/2024 15:00 EDT Telemedicine [facility] Hematology & Oncology [address] [phone] Alisson Carreon MD [address] [place] [address] 2 [place] [phone] 04/13/2024 13:30 EDT Appointment [facility] Hematology & Oncology [address] [address] 04/13/2024 14:00 EDT Appointment [facility] Hematology & Oncology - [address] [address] 04/16/2024 10:00 EST Telemedicine [facility] Health Network - [facility] Palliative Care Services [address] [place] [address] [phone] Chichi Woods MD [address] [place] [address], [address] [phone] 04/24/2024 9:00 EST Appointment [facility] Radiology CT Outpatient - [address] [id number] 04/24/2024 11:00 EST Appointment [facility] Breast Imaging - [facility] S [address] [id number] 04/27/2024 12:00 EST Appointment [facility] Hematology & Oncology - [address] [phone] 05/02/2024 15:00 EST Telemedicine [facility] Hematology & Oncology - [address] [phone] Alisson Carreon MD [address] [place] [address], Level [address] [place] [phone] 05/04/2024 10:15 EST Ancillary Procedure [facility] Cardiology [place] [place] [address] 05/04/2024 11:30 EST Appointment [facility] Hematology & Oncology - [address] [address] 05/04/2024 12:00 EST Appointment [facility] Hematology & Oncology - [address] [phone] 06/12/2024 13:00 EST Appointment [facility] Center Radiology CT - [address] [address] documented as of this encounter Visit Diagnoses Not on filedocumented in this encounter Care Teams Program Support Specialist Relationship Specialty Start Date End Date Linda Blancas MD [address] [place] [address] [address] [place] [address] PCP - General 01/06/11 Adolfo Carreno MD [address] [place] [phone] General Surgery 04/26/19 Augustina Colin MD PhD [address] [place] [phone] Medical Oncology 04/26/19 documented as of this encounter
--- OUTSIDE RECORDS SUMMARY | 2024-03-20 14:52 | XMS_ITS | Encounter Summary ---
Author Organization [facility] Address [address] [place] [address] Care Team Providers Care Concrete Vibrator Operator Name Role Phone Linda Blancas MD Primary Care Provider [phone] Adolfo Carreno MD Unavailable [phone] Augustina Colin MD PhD Unavailable Unavailable Encounter Details Date Type Department Care Team (Latest Contact Info) Description 09/03/2021 13:30 EDT Phlebotomy Only [facility] Cancer Center Hematology & Oncology - Main [place] [address] [place] [address] Blood Doctor, [facility] Hem Onc Metastatic breast cancer (HCC-CMS) [...] Progress Notes * Sheri Chandler MA - 09/03/2021 1330 EDT Venipuncture performed for Dittus Per orders of Dittus Number of attempts 2, left AC I was supervised by Ran who was present and immediately available in the office suite. SHERI CHANDLER MA 09/03/2021 13:26 documented in this encounter Plan of Treatment Upcoming Encounters Date Type Department Care Team (Late st Contact Info) Description 04/02/2024 10:30 EDT Appointment [facility] Interventional Radiology Unit [address] [place] [address] [phone] 04/02/2024 15:15 EDT Office Visit [facility] Surgical Oncology - [facility] [address], [place] [phone] Adolfo Carreno MD 111 [facility], Level [address] [place] [phone] 04/05/2024 9:30 EDT Telemedicine [facility] Palliative Care Services [address], [place] 420551 Chichi Woods MD 111 [facility] [address] [place] [phone] 04/11/2024 15:00 EDT Telemedicine [facility] Hematology & Oncology - [address] 198741 Alisson Carreon MD [address] [place] [address], [facility] 2 [place] [phone] 04/13/2024 13:30 EDT Appointment [facility] Hematology & Oncology - [address] [phone] 04/13/2024 14:00 EDT Appointment [facility]ology [facility] Oncology [address] [phone] 04/16/2024 10:[address] [facility] - [facility] Palliative Care Services [address] [place] [address] Chichi Woods MD [address] [place] [phone] 04/24/2024 9:00 EST Appointment [facility] Radiology CT Outpatient - [address] [id number] 04/24/2024 11:00 EST Appointment [facility] Breast Imaging - [facility] S [address] [id number] 04/27/2024 12:00 EST Appointment [facility] Hematology & Oncology - [address] [phone] 05/02/2024 15:00 EST Telemedicine [facility] Hematology & Oncology - [address] [phone] Alisson Carreon MD [address] [place] [address], [facility] 2 [place] [phone] 05/04/2024 10:15 EST Ancillary Procedure [facility] Cardiology - [address] [place], [place] [phone] 05/04/2024 11:30 EST Appointment [facility] Hematology & Oncology - [address] [phone] 05/04/2024 12:00 EST Appointment [facility] [address] [phone] 06/12/2024 13:00 EST Appointment [facility] Radiology CT - [address] [phone] documented as of this encounter Procedures Procedure Name Priority Date/Time Associated Diagnosis Comments DIFFERENTIAL MANUAL Today 09/03/2021 1 3:38 EDT Metastatic breast cancer (HCC-CMS) (HCC) (HCC-CMS) COMPREHENSIVE METABOLIC PANEL (ONCOLOGY USE ONLY-INC MG) STAT 09/03/2021 13:38 EDT Metastatic breast cancer (HCC-CMS) (HCC) (HCC-CMS) COMPLETE BLOOD COUNT AND DIFFERENTIAL STAT 09/03/2021 13:38 EDT Metastatic breast cancer (HCC-CMS) (HCC) (HCC-CMS) documented in this encounter Results * (ABNORMAL) DIFFERENTIAL MANUAL (09/03/2021 13:38 EDT) % Neutrophils 26.0 % 09/03/2021 14:45 T [facility] % Lymphocytes 62.0 % 09/03/2021 14:45 [facility] % Atypical Lymphocytes 5.0 % 09/03/2021 14:45 [facility] % Monocytes 2.0 % 09/03/2021 14:45 [facility] % Eosinophils 5.0 % 09/03/2021 14:45 [facility] Absolute Neutrophils 1.15(L) 2.20 - 8.85 K/cmm 09/03/2021 14:45 [facility] Absolute Lymphocytes 2.75 1.09 - 3.30 K/cmm 09/03/2021 14:45 T [facility] Absolute Atypical Lymphocytes 0.22 K/cmm 09/03/2021 14:45 [facility] Absolute Monocytes 0.09(L) 0.10 - 0.80 K/cmm 09/03/2021 14:45 [facility] Absolute Eosinophils 0.22 0.03 - 0.61 K/cmm 09/03/2021 14:45 [facility] Blood VENOUS BLOOD / Unknown Venipuncture / Unknown 09/03/2021 13:38 EDT 09/03/2021 13:43 EDT Augustina Colin MD PhD HEMATOLOGY & PF4 ORD ERABLES Performing Organization Address City/State/[facility] Co de Phone Number [facility] [address] [place] [phone] * (ABNORMAL) COMPLETE BLOOD COUNT AND DIFFERENTIAL (09/03/2021 13:38 EDT) WBC 4.43 4.00 - 12.40 K/cmm 09/03/2021 13:59 [facility] RBC 3.69(L) 3.86 - 5.04 M/cmm 09/03/2021 13:59 [facility] Hemoglobin 13.3 11.6 - 15.2 gm/dL 09/03/2021 13:59 [facility] HCT 38.3 34.9 - 44.4 % 09/03/2021 13:59 [facility] MCV 104(H) 81 - 98 fl 09/03/2021 13:59 [facility] MCH 36.0(H) 26.7 - 33.3 pg 09/03/2021 13:59 [facility] MCHC 34.7 32.1 - 35.9 gm/dL 09/03/2021 13:59 [facility] RDW-CV 14.3 <14.7 % 09/03/2021 13:59 [facility] RDW-SD 54.3(H) <50.4 fl 09/03/2021 13:59 [facility] PLT 199 141 - 377 K/cmm 09/03/2021 13:59 [facility] MPV 10.0 9.5 - 12.7 fl 09/03/2021 13:59 [facility] Type of Differential: Manual 09/03/2021 13:59 [facility] Blood VENOUS BLOOD / Unknown Venipuncture / Unknown 09/03/2021 13:38 EDT 09/03/2021 13:43 EDT Augustina Colin MD PhD PACKAGES & DNA PROBE ORDERABLES Performing Organization Address City/State/[facility] Co de Phone Number [facility] [address] [place] [address] * COMPREHENSIVE METABOLIC PANEL (ONCOLOGY USE ONLY-INC MG) (09/03/2021 13:38 EDT) Sodium 141 136 - 145 mmol/L 09/03/2021 14:09 [facility] Potassium 4.4 3.5 - 5.0 mmol/L 09/03/2021 14:09 [facility] Chloride 106 96 - 110 mmol/L 09/03/2021 14:09 [facility] CO2 Total 28 22 - 32 mmol/L 09/03/2021 14:09 [facility] Glucose 88 70 - 100 mg/dL 09/03/2021 14:09 [facility] BUN 23 10 - 26 mg/dL 09/03/2021 14:09 [facility] Creatinine 0.77 0.52 - 1.04 mg/dL 09/03/2021 14:09 [facility] eGFR 84 >60 mL/min/1.7 3m2 09/03/2021 14:09 [facility] Total Protein 7.4 6.3 - 8.2 g/dL 09/03/2021 14:09 [facility] Albumin 4.5 3.4 - 4.9 g/dL 09/03/2021 14:09 [facility] Alkaline Phosphatase 78 38 - 126 U/L 09/03/2021 14:09 [facility] AST 30 15 - 46 U/L 09/03/2021 14:09 [facility] ALT 17 <35 U/L 09/03/2021 14:09 [facility] Bilirubin, Total <0.5 <1.4 mg/dL 09/04/19 14:09 [facility] Calcium 9.9 8.5 - 10.5 mg/dL 09/03/2021 14:09 [facility] Magnesium 2.0 1.7 - 2.8 mg/dL 09/03/2021 14:09 [facility] Albumin/Globulin Ratio 1.6 1.0 - 2.5 09/03/2021 14:09 [facility] Anion Gap 7 5 - 14 09/03/2021 14:09 [facility] Blood VENOUS BLOOD / Unknown Venipuncture / Unknown 09/03/2021 13:38 EDT 09/03/2021 13:43 EDT Augustina Colin MD PhD CHEMISTRY & BLOOD GA S ORDERABLES Performing Organization Address [facility]/State/[facility] Co de Phone Number [facility] [address] [place] [address] documented in this encounter Visit Diagnoses Diagnosis Metastatic breast cancer- Primary documented in this encounter Care Teams Concrete Vibrator Operator Relationship Specialty Start Date End Date Linda Blancas MD [facility] [address] [place] [address] PCP - General 01/06/11 Adolfo Carreno MD 111 [facility] 2 [place] [phone] General Surgery 04/26/19 Augustina Colin MD PhD 111 [facility], [facility] 2 [place] [phone] Medical Oncology 04/26/19 documented as of this encounter
--- OUTSIDE RECORDS SUMMARY | 2024-03-20 14:52 | XMS_ITS | Encounter Summary ---
Author Organization [facility] Address [address] [place] [address] Care Team Providers Care Teacher Dramatics Name Role Phone Linda Blancas MD Primary Care Provider [phone] Adolfo Carreno MD Unavailable [phone] Augustina Colin MD PhD Unavailable Unavailable Encounter Details Date Type Department Care Team (Latest Contact Info) Description 07/10/2021 11:00 EST Phlebotomy Only [facility] Hematology & Oncology - Main [place] [address] [place] [address] Blood Doctor, [facility] Hem Onc Metastatic breast cancer (HCC-CMS) [...] Progress Notes * Patricia Rodriguez MA - 07/10/2021 1100 EST Venipuncture performed for Dittus Per orders of Dittus Number of attempts 1 right ac PC I was supervised by Bryan who was present and immediately available in the office suite. PATRICIA RODRIGUEZ MA 07/10/2021 11:14 documented in this encounter Plan of Treatment Upcoming Encounters Date Type Department Care Team (Late st Contact Info) Description 04/02/2024 10:30 EDT Appointment [facility] Interventional Radiology Unit [address] [place] [address] [phone] 04/02/2024 15:15 EDT Office Visit [facility] Surgical Oncology - [address] [phone] Adolfo Carreno MD 111 [facility] 2 [place] [phone] 04/05/2024 9:[address] [facility] - [facility] Palliative Care Services [address] [place], [place] [phone] Chichi Woods MD [address] [place] [address] [phone] 04/11/2024 15:00 EDT Telemedicine [facility] Hematology & Oncology - [facility] [address] [place], [place] [phone] Alisson Carreon MD 111 [facility] 2 [place] [phone] 04/13/2024 13:30 EDT Appointment [facility] Hematology & Oncology - [address] [phone] 04/13/2024 14:00 EDT Appointment [facility] Hematology & Oncology - [address] 879401 04/16/2024 10:[address] [facility] - [facility] Palliative Care Services [address] [place] [address] [phone] Chichi Woods MD [address] [place] [address], [address] [phone] 04/24/2024 9:00 EST Appointment [facility] Radiology CT Outpatient - [address] [id number] 04/24/2024 11:00 EST Appointment [facility] Breast Imaging - [facility] S [address] [phone] 04/27/2024 12:00 EST Appointment [facility] Hematology & Oncology - [address] [phone] 05/02/2024 15:00 EST Telemedicine [facility] Hematology & Oncology - [address] 820571 Alisson Carreon MD [address] [place] [address], Level 2 [place] [phone] 05/04/2024 10:15 EST Ancillary Procedure [facility] Cardiology - [address] [place], [place] [phone] 05/04/2024 11:30 EST Appointment [facility] Hematology & Oncology - [address] [address] 05/04/2024 12:00 EST Appointment [facility] Hematology & Oncology - [address] [address] 06/12/2024 13:00 EST Appointment [facility] Radiology CT - [address] [address] documented as of this encounter Procedures Procedure Name Priority Date/Time Associated Diagnosis Comments COMPREHENSIVE METABOLIC PANEL (ONCOLOGY USE ONLY-INC MG) STAT 07/10/2021 11:12 EST Metastatic breast cancer (HCC-CMS) (HCC) (HCC-CMS) COMPLETE BLOOD COUNT AND DIFFERENTIAL STAT 07/10/2021 11:12 EST Metastatic breast cancer (HCC-CMS) (HCC) (HCC-CMS) documented in this encounter Results * (ABNORMAL) COMPLETE BLOOD COUNT AND DIFFERENTIAL (07/10/2021 11:12 EST) WBC 3.97(L) 4.00 - 12.40 K/cmm 07/10/2021 11:27 [facility] RBC 3.43(L) 3.86 - 5.04 M/cmm 07/10/2021 11:27 [facility] Hemoglobin 11.9 11.6 - 15.2 gm/dL 07/10/2021 11:27 [facility] HCT 34.8(L) 34.9 - 44.4 % 07/10/2021 11:27 [facility] MCV 102(H) 81 - 98 fl 07/10/2021 11:27 [facility] MCH 34.7(H) 26.7 - 33.3 pg 07/10/2021 11:27 [facility] MCHC 34.2 32.1 - 35.9 gm/dL 07/10/2021 11:27 [facility] RDW-CV 13.9 <14.7 % 07/10/2021 11:27 [facility] RDW-SD 49.7 <50.4 fl 07/10/2021 11:27 [facility] PLT 206 141 - 377 K/cmm 07/10/2021 11:27 [facility] MPV 9.5 9.5 - 12.7 fl 07/10/2021 11:27 [facility] % Neutrophils 33.7 % 07/10/2021 11:27 [facility] % Lymphocytes 55.4 % 07/10/2021 11:27 [facility] % Monocytes 9.6 % 07/10/2021 11:27 [facility] % Eosinophils 0.5 % 07/10/2021 11:27 [facility] % Basophils 0.5 % 07/10/2021 11:27 [facility] % Immature Grans 0.3 % 07/10/19 11:27 [facility] Absolute Neutrophils 1.34(L) 2.20 - 8.85 K/cmm 07/10/2021 11:27 [facility] Absolute Lymphocytes 2.20 1.09 - 3.30 K/cmm 07/10/2021 11:27 [facility] Absolute Monocytes 0.38 0.10 - 0.80 K/cmm 07/10/2021 11:27 [facility] Absolute Eosinophils 0.02(L) 0.03 - 0.61 K/cmm 07/10/2021 11:27 [facility] ABS Basophils 0.02 0.01 - 0.11 K/cmm 07/10/2021 11:27 [facility] Absolute Immature Grans 0.01 0.00 - 0.06 K/cmm 07/10/2021 11:27 [facility] Type of Differential: Auto 07/10/2021 11:27 [facility] Blood VENOUS BLOOD / Unknown Venipuncture / Unknown 07/10/2021 11:12 EST 07/10/2021 11:16 EST Augustina Colin MD PhD PACKAGES & DNA PROBE ORDERABLES [facility] [address] [place] [address] * COMPREHENSIVE METABOLIC PANEL (ONCOLOGY USE ONLY-INC MG) (07/10/2021 11:12 [facility]) Sodium 142 136 - 145 mmol/L 07/10/2021 11:46 [facility] Potassium 4.4 3.5 - 5.0 mmol/L 07/10/2021 11:46 [facility] Chloride 106 96 - 110 mmol/L 07/10/2021 11:46 [facility] CO2 Total 28 22 - 32 mmol/L 07/10/2021 11:46 [facility] Glucose 80 70 - 100 mg/dL 07/10/2021 11:46 [facility] BUN 19 10 - 26 mg/dL 07/10/2021 11:46 [facility] Creatinine 0.65 0.52 - 1.04 mg/dL 07/10/2021 11:46 [facility] eGFR 97 >60 mL/min/1.7 3m2 07/10/2021 11:46 [facility] Total Protein 6.8 6.3 - 8.2 g/dL 07/10/2021 11:46 [facility] Albumin 4.2 3.4 - 4.9 g/dL 07/10/2021 11:46 [facility] Alkaline Phosphatase 77 38 - 126 U/L 07/10/2021 11:46 [facility] AST 29 15 - 46 U/L 07/10/2021 11:46 [facility] ALT 17 <35 U/L 07/10/2021 11:46 [facility] Bilirubin, Total <0.5 <1.4 mg/dL 07/10/19 11:46 [facility] Calcium 9.3 8.5 - 10.5 mg/dL 07/10/2021 11:46 [facility] Magnesium 2.2 1.7 - 2.8 mg/dL 07/10/2021 11:46 [facility] Albumin/Globulin Ratio 1.6 1.0 - 2.5 07/10/2021 11:46 EST [facility] Anion Gap 8 8 - 16 07/10/2021 11:46 EST [facility] Blood VENOUS BLOOD / Unknown Venipuncture / Unknown 07/10/2021 11:12 EST 07/10/2021 11:16 EST Augustina Colin MD PhD CHEMISTRY & BLOOD GA S ORDERABLES [facility] [address] [place] [address] documented in this encounter Visit Diagnoses Diagnosis Metastatic breast cancer- Primary documented in this encounter Care Teams Teacher Dramatics Relationship Specialty Start Date End Date Linda Blancas MD [address] [place] [address] 30 [place] [address] PCP - General 01/06/11 Adolfo Carreno MD [address] [place] [address] [phone] General Surgery 04/26/19 Augustina Colin MD PhD [address] [place] [phone] Medical Oncology 04/26/19 documented as of this encounter
--- OUTSIDE RECORDS SUMMARY | 2024-03-20 14:52 | XMS_ITS | Encounter Summary ---
Author Organization [facility] Address [address] [place] [address] Care Team Providers Care Photoengraver Name Role Phone Linda Blancas MD Primary Care Provider [phone] Adolfo Carreno MD Unavailable [phone] Augustina Colin MD PhD Unavailable Unavailable Encounter Details Date Type Department Care Team (Late st Contact Info) Description 09/03/2021 Orders Only [facility] Hematology & Oncology - [facility] [address] [place] [address] Augustina Colin, PhD Social History Tobacco Use [...] Appointment [facility] Interventional Radiology Unit [address] [place] [address] [phone] 04/02/2024 15:15 EDT Office Visit [facility] Surgical Oncology - [address] [phone] Adolfo Carreno MD [address] [place] [address] 2 [place] [phone] 04/05/2024 9:30 EDT Telemedicine [facility] Palliative Care Services [address] [place] [address] [phone] Chichi Woods MD [address] [place] [address] [phone] 04/11/2024 15:00 EDT Telemedicine [facility] Hematology & Oncology [address] [phone] Alisson Carreon MD [address] [place] [address] 2 [place] [phone] 04/13/2024 13:30 EDT Appointment [facility] Hematology & Oncology [address] [address] 04/13/2024 14:00 EDT Appointment [facility] Hematology & Oncology - [address] [address] 04/16/2024 10:00 EST Telemedicine [facility] - [facility] Services [address] [place] [address] [phone] Chichi Woods MD [address] [place] [address], [address] [phone] 04/24/2024 9:00 EST Appointment [facility] Radiology CT Outpatient - [address] [id number] 04/24/2024 11:00 EST Appointment [facility] Breast Imaging - [facility] S [address] [phone] 04/27/2024 12:00 EST Appointment [facility] Hematology & Oncology - [address] [phone] 05/02/2024 15:00 EST Telemedicine [facility] Hematology & Oncology - [address] [phone] Alisson Carreon MD [address] [place] [address], Level 2 [place] [phone] 05/04/2024 10:15 EST Ancillary Procedure [facility] Cardiology - [place] [address] 05/04/2024 11:30 EST Appointment [facility] Hematology & Oncology - [address] [address] 05/04/2024 12:00 EST Appointment [facility] Hematology & Oncology - [address] [phone] 06/12/2024 13:00 EST Appointment [facility] Center Radiology CT - [address] [address] documented as of this encounter Visit Diagnoses Not on filedocumented in this encounter Care Teams Photoengraver Relationship Specialty Start Date End Date Linda Blancas MD [address] [place] [address] 30 [place] [address] PCP - General 01/06/11 Adolfo Carreno MD [address] [place] [address] [phone] General Surgery 04/26/19 Augustina Colin MD PhD [address] [place] [phone] Medical Oncology 04/26/19 documented as of this encounter
--- OUTSIDE RECORDS SUMMARY | 2024-03-20 14:52 | XMS_ITS | Encounter Summary ---
Author Organization [facility] Address [address] [place] [address] Care Team Providers Care Propagator Name Role Phone Linda Blancas MD Primary Care Provider [phone] Adolfo Carreno MD Unavailable [phone] Augustina Colin MD PhD Unavailable Unavailable Encounter Details Date Type Department Care Team (Late st Contact Info) Description 08/31/2021 10:30 EDT Ancillary Procedure [facility] Surgical Oncology - Main [place] [address] [place] [address] Social History Tobacco Use Types Packs/Day Years [...] [facility] Inter[facility] Radiology Unit [address] [place] [address] [phone] 04/02/2024 15:15 EDT Office Visit [facility] Surgical Oncology - [address] [phone] Adolfo Carreno MD [address] [place] [address] 2 [place] [phone] 04/05/2024 9:30 EDT Telemedicine [facility] - [facility] Palliative Care Services [address] [place] [address] [phone] Chichi Woods MD [address] [place] [address] [phone] 04/11/2024 15:00 EDT Telemedicine [facility] Hematology & Oncology [address] [phone] Alisson Carreon MD [address] [place] [address] [phone] 04/13/2024 13:30 EDT Appointment [facility] Hematology & Oncology [address] [phone] 04/13/2024 14:00 EDT Appointment [facility] Hematology & Oncology - [address] [address] 04/16/2024 10:00 EST Telemedicine [facility] - [facility] Palliative Care Services [address] [place], [place] 331241 Chichi Woods MD 111 [facility], [address] [phone] 04/24/2024 9:00 EST Appointment [facility] Radiology CT Outpatient - [address] [address] 04/24/2024 11:00 EST Appointment [facility] Breast Imaging - [address] 231011 04/27/2024 12:00 EST Appointment [facility] Hematology & Oncology - [address] [phone] 05/02/2024 15:00 EST Telemedicine [facility] Hematology & Oncology - [address] 455591 Alisson Carreon MD [address] [place] [address], Level 2 [place] [phone] 05/04/2024 10:15 EST Ancillary Procedure [facility] Cardiology - [place] [address] 05/04/2024 11:30 EST Appointment [facility] Hematology & Oncology - [address] [address] 05/04/2024 12:00 EST Appointment [facility] Hematology & Oncology - [address] [phone] 06/12/2024 13:00 EST Appointment [facility] Center Radiology CT - [address] [phone] documented as of this encounter Procedures Procedure Name Priority Date/Time Associated Diagnosis Comments [facility] ONLY Routine 08/31/2021 12:07 EDT documented in this encounter Results * [facility] ONLY (08/31/2021 12:07 EDT) Narrative [facility] POINT OF CARE - 08/31/2021 12:07 EDT This is a non-reportable exam. Adolfo Carreno MD IMG US POC ORDERABLE S [facility] POINT OF CARE documented in this encounter Visit Diagnoses Not on filedocumented in this encounter Care Teams Propagator Relationship Specialty Start Date End Date Linda Blancas MD [facility] [address] [place] [address] PCP - General 01/06/11 Adolfo Carreno MD [address] [place] [address] [phone] General Surgery 04/26/19 Augustina Colin MD PhD [address] [place] [address] 2 [place] [phone] Medical Oncology 04/26/19 documented as of this encounter
--- OUTSIDE RECORDS SUMMARY | 2024-03-20 14:52 | XMS_ITS | Encounter Summary ---
Author Organization [facility] Address [address] [place] [address] Care Team Providers Care Swinging Cut Off Saw Operator Name Role Phone Linda Blancas MD Primary Care Provider [phone] Adolfo Carreno MD Unavailable [phone] Augustina Colin MD PhD Unavailable Unavailable Encounter Details Date Type Department Care Team (Late st Contact Info) Description 09/02/2021 Orders Only [facility] Cancer Center Hematology & Oncology - [facility] [address] [place] [address] Augustina Colin, PhD Social History Tobacco Use [...] [facility] Interventional Radiology Unit [address] [place] [address] [phone] 04/02/2024 15:15 EDT Office Visit [facility] Surgical Oncology - [address] [phone] Adolfo Carreno MD [address] [place] [address] 2 [place] [phone] 04/05/2024 9:30 EDT Telemedicine [facility] Palliative Care Services [address] [place] [address] [phone] Chichi Woods MD [address] [place] [address] [phone] 04/11/2024 15:00 EDT Telemedicine [facility] Hematology & Oncology [address] [phone] Alisson Carreon MD [address] [place] [address] 2 [place] [phone] 04/13/2024 13:30 EDT Appointment [facility] Hematology & Oncology [address] [address] 04/13/2024 14:00 EDT Appointment [facility] Hematology & Oncology - [address] [address] 04/16/2024 10:00 EST Telemedicine [facility] Health Network - [facility] Palliative Care Services [address] [place] [address] [phone] Chichi Woods MD [address] [place] [address], [address] [phone] 04/24/2024 9:00 EST Appointment [facility] Radiology CT Outpatient - [address] 401461 04/24/2024 11:00 EST Appointment [facility] Breast Imaging - [facility] S [address] [phone] 04/27/2024 12:00 EST Appointment [facility] Hematology & Oncology - [address] [phone] 05/02/2024 15:00 EST Telemedicine [facility] Hematology & Oncology - [address] [phone] Alisson Carreon MD [address] [place] [address], Level 2 [place] [phone] 05/04/2024 10:15 EST Ancillary Procedure [facility] Cardiology [place] [address] 05/04/2024 11:30 EST Appointment [facility] Hematology & Oncology - [address] [address] 05/04/2024 12:00 EST Appointment [facility] Hematology & Oncology - [address] 159391 06/12/2024 13:00 EST Appointment [facility] Radiology CT - [address] [address] documented as of this encounter Visit Diagnoses Not on filedocumented in this encounter Care Teams Swinging Cut Off Saw Operator Relationship Specialty Start Date End Date Linda Blancas MD [address] [place] [address] 30 [place] [address] PCP - General 01/06/11 Adolfo Carreno MD [address] [place] [address] [phone] General Surgery 04/26/19 Augustina Colin MD PhD [address] [place] [phone] Medical Oncology 04/26/19 documented as of this encounter
--- OUTSIDE RECORDS SUMMARY | 2024-03-20 14:52 | XMS_ITS | Encounter Summary ---
Author Organization [facility] Address [address] [place] [address] Care Team Providers Care Pest Control Technician Name Role Phone Linda Blancas MD Primary Care Provider [phone] Adolfo Carreno MD Unavailable [phone] Augustina Colin MD PhD Unavailable Unavailable Encounter Details Date Type Department Care Team (Late st Contact Info) Description 08/19/2021 Orders Only [facility] Radiology - Main [place] [address] [place], [place] 735771 Lewis Cooley MD 111 [facility], Level 1 [place] [phone] Social History Tobacco Use Types [...] Appointment [facility] Interventional Radiology Unit [address] [place] [address] [phone] 04/02/2024 15:15 EDT Office Visit [facility] Surgical Oncology - [address] [phone] Adolfo Carreno MD [address] [place] [address] 2 [place] [phone] 04/05/2024 9:30 EDT Telemedicine [facility] - [facility] Pall[facility] Care Services [address] [place] [address] [phone] Chichi Woods MD [address] [place] [address] [phone] 04/11/2024 15:00 EDT Telemedicine [facility] Hematology & Oncology - [address] [phone] Alisson Carreon MD [address] [place] [address] 2 [place] [phone] 04/13/2024 13:30 EDT Appointment [facility] Hematology & Oncology [address] [phone] 04/13/2024 14:00 EDT Appointment [facility] Hematology & Oncology - [address] [id number] 04/16/2024 10:00 EST Telemedicine [facility] - [facility] Care Services [address] [place], [place] 83[address] Chichi Woods MD [address] [facility], [address] [phone] 04/24/2024 9:00 EST Appointment [facility] Radiology CT Outpatient - [address] 254161 04/24/2024 11:00 EST Appointment [facility] Breast Imaging - [address] [phone] 04/27/2024 12:00 EST Appointment [facility] Hematology & Oncology - [address] 977211 05/02/2024 15:00 EST Telemedicine [facility] Hematology & Oncology - [address] [phone] Alisson Carreon MD [address] [place] [address], [facility] 2 [place] [phone] 05/04/2024 10:15 EST Ancillary Procedure [facility] Cardiology - [address] [place] [address] 05/04/2024 11:30 EST Appointment [facility] Hematology & Oncology - [address] 834001 05/04/2024 12:00 EST Appointment [facility] Hematology & Oncology - [address] [address] 06/12/2024 13:00 EST Appointment [facility] Center Radiology CT - [address] [address] documented as of this encounter Visit Diagnoses Not on filedocumented in this encounter Care Teams Pest Control Technician Relationship Specialty Start Date End Date Linda Blancas MD [facility] [address] [place] [address] PCP - General 01/06/11 Adolfo Carreno MD [address] [place] [address] [phone] General Surgery 04/26/19 Augustina Colin MD PhD [address] [place] [phone] Medical Oncology 04/26/19 documented as of this encounter
--- OUTSIDE RECORDS SUMMARY | 2024-03-20 14:52 | XMS_ITS | Encounter Summary ---
Author Organization [facility] Address [address] [place] [address] Care Team Providers Care Sanitary Landfill Operator Name Role Phone Linda Blancas MD Primary Care Provider [phone] Adolfo Carreno MD Unavailable [phone] Augustina Colin MD PhD Unavailable Unavailable Encounter Details Date Type Department Care Team (Late st Contact Info) Description 08/19/2021 Orders Only [facility] Radiology - Main [place] [address] [place] [address] Anusha Mcmahon MD [address] [place] [phone] Social History Tobacco Use Types Packs/Day Years [...] [facility] Inter[facility] Unit [address] [place] [address] [phone] 04/02/2024 15:15 EDT Office Visit [facility] Surgical Oncology - [address] [phone] Adolfo Carreno MD [address] [place] [address], [facility] 2 [place] [phone] 04/05/2024 9:30 EDT Telemedicine [facility] - [facility] Palliative Care Services [address] [place], [place] [phone] Chichi Woods MD [address] [place] [address], [address] [phone] 04/11/2024 15:00 EDT Telemedicine [facility] Hematology & Oncology - [address] [phone] Alisson Carreon MD [address] [place] [address], [facility] 2 [place] [phone] 04/13/2024 13:30 EDT Appointment [facility] Hematology & Oncology - [address] [phone] 04/13/2024 14:00 EDT Appointment [facility] Hematology & Oncology - [address] [address] 04/16/2024 10:00 EST Telemedicine [facility] - [facility] Palliative Care Services [address] [place] [address] [phone] Chichi Woods MD [address] [place] [address] [phone] 04/24/2024 9:00 EST Appointment [facility] Radiology CT Outpatient - [address] [phone] 04/24/2024 11:00 EST Appointment [facility] Breast Imaging - [facility] [address] 090521 04/27/2024 12:00 EST Appointment [facility] Hematology & Oncology - [address] [phone] 05/02/2024 15:00 EST Telemedicine [facility] Hematology & Oncology [address] [phone] Alisson Carreon MD [address] [place] [address], Level 2 [place] [phone] 05/04/2024 10:15 EST Ancillary Procedure [facility] Cardiology [place] [address] 05/04/2024 11:30 EST Appointment [facility] Hematology & Oncology [address] 739851 05/04/2024 12:00 EST Appointment [facility] Hematology & Oncology - [address] [address] 06/12/2024 13:00 [facility] Radiology CT - [address] [phone] documented as of this encounter Visit Diagnoses Not on filedocumented in this encounter Care Teams Sanitary Landfill Operator Relationship Specialty Start Date End Date Linda Blancas MD [facility] [address] [place] [address] PCP - General 01/06/11 Adolfo Carreno MD [address] [place] [address] [phone] General Surgery 04/26/19 Augustina Colin MD PhD [address] [place] [address] 2 [place] [address] Medical Oncology 04/26/19 documented as of this encounter
--- OUTSIDE RECORDS SUMMARY | 2024-03-20 14:52 | XMS_ITS | Encounter Summary ---
Author Organization [facility] Address [address] [place] [address] Care Team Providers Care Aed Trainer Name Role Phone Linda Blancas MD Primary Care Provider [phone] Adolfo Carreno MD Unavailable [phone] Augustina Colin MD PhD Unavailable Unavailable Reason for Visit * Reason Comments Injections * Episode Based Medications (Routine) - Closed Specialty Diagnoses / Procedures Referred By [facility] Referred To Contact Diagnoses Malignant neoplasm of right female breast, unspecified estrogen receptor status, unspecified site of breast (HCC-CMS) Augustina Colin MD PhD [facility] Ep2 Infusion [address] [place] [address] Referral ID Status Reason Start Date Expiration Date Visits Re quested Visits Authorized [id number] Closed 08/19/2021 06/12/2022 1 1 Encounter Details Date Type Department Care Team (Latest Contact Info) Description 10/01/2021 13:21 EDT - 10/01/2021 23:59 EDT Hospital Encounter [facility] Hematology & Oncology - Main [place] [address] [place], [place] [phone] Malignant neoplasm of right female breast, unspecified [...] Sign Reading Time Taken Comments Blood Pressure 130/75 10/01/2021 1330 EDT Pulse 97 10/01/2021 1330 EDT Temperature 36.5 ??C (97.7 ??F) 10/01/2021 1330 EDT Respiratory Rate 16 10/01/2021 1330 EDT Oxygen Saturation 99% 10/01/2021 1330 EDT Inhaled Oxygen Concentration - - [...] Tablets by mouth as needed. 12/07/2023 mv-mn/C/glutamin/lysin /gtpm177 (AIRBORNE, ASCORBATE SODIUM, ORAL) Take by mouth [...] in this encounter Progress Notes * Yuliana Vásquez RN - 10/01/2021 1400 EDT Sendy arrived for cycle 22 of treatment with Fulvestrant. She does not have any concerns about her medication, and is feeling well. The fulvestrant was administered in left and right upper outer gluteus muscles and Sendy tolerated them. She understands to notify team with any changes. I was supervised by Dr. Corea who was present at the clinic and immediately available. Yuliana Vásquez RN 10/01/2021 documented in this encounter Miscellaneous Notes * Addendum Note - Reta Kuhn - 10/01/2021 1400 EDTEncounter addended by: Reta Kuhn on: 10/12/2021 14:18 Actions taken: Charge Capture section accepted documented in this encounter Plan of Treatment Upcoming Encounters Date Type Department Care Team (Late st Contact Info) Description 04/02/2024 10:30 EDT Appointment [facility] Interventional Radiology Unit [address] [place] [address] 388151 04/02/2024 15:15 EDT Office Visit [facility] Surgical Oncology - [address] 086371 Adolfo Carreno MD [address] [place] [address] [phone] 04/05/2024 9:30 EDT Telemedicine [facility] Palliative Care Services [address] [place] [address] [phone] Chichi Woods MD [address] [place] [address] [phone] 04/11/2024 15:00 EDT Telemedicine [facility] Hematology & Oncology [address] 151801 Alisson Carreon MD [address] [place] [address] [phone] 04/13/2024 13:30 EDT Appointment [facility] Hematology & Oncology [address] [phone] 04/13/2024 14:00 EDT Appointment [facility] Hematology & Oncology [address] [id number] 04/16/2024 10:00 EST Telemedicine [facility] Palliative Care Services [address] [place] [address] [phone] Chichi Woods MD [address] [place], [place] [address], [place] [phone] 04/24/2024 9:00 EST Appointment [facility] Radiology CT Outpatient - [address] [id number] 04/24/2024 11:00 EST Appointment [facility] Breast Imaging - [facility] [place] [address] [place], [place] 869541 04/27/2024 12:00 EST Appointment [facility] Hematology & Oncology [address] [phone] 05/02/2024 15:00 EST Telemedicine [facility] Hematology & Oncology [address] 251401 Alisson Carreon MD [address] [place] [address], Level 2 [place] [phone] 05/04/2024 10:15 EST Ancillary Procedure [facility] Cardiology [place] [address] 05/04/2024 11:30 EST Appointment [facility] Hematology & Oncology [address] 874671 05/04/2024 12:00 EST Appointment [facility] Hematology & Oncology - [address] [phone] 06/12/2024 13:00 EST Appointment [facility] Radiology CT - [address] [phone] documented as of this encounter Visit Diagnoses Diagnosis Malignant neoplasm of right female breast, unspecified estrogen receptor status, unspecified site of breast (HCC-CMS)- Primary documented in this encounter Administered Medications Inactive Administered Medications - up to 3 most recent administrations Medication Order MAR Action Action Date Dose Rate Site fulvestrant (FASLODEX) injection 500 mg 500 mg, intramuscular, NOW X1, 1 dose, On Michelle 10/01/21 at 1415, Routine Given 10/01/2021 14:30 EDT 500 mg Left Gluteus Medius/Ventrogluteal documented in this encounter Orders Appointment Requests Count Last Ordered Date Fi rst Ordered Date ONCBCN INJECTION APPOINTMENT REQUEST 1 09/12 documented in this encounter Care Teams Aed Trainer Relationship Specialty Start Date End Date Linda Blancas MD [facility] [address] [place] [address] PCP - General 01/06/11 Adolfo Carreno MD [address] [place] [address] 2 [place] [address] General Surgery 04/26/19 Augustina Colin MD PhD [address] [place] [address] 2 [place] [address] Medical Oncology 04/26/19 documented as of this encounter
--- OUTSIDE RECORDS SUMMARY | 2024-03-20 14:52 | XMS_ITS | Encounter Summary ---
Author Organization [facility] Address [address] [place] [address] Care Team Providers Care Business Education Instructor Name Role Phone Linda Blancas MD Primary Care Provider [phone] Adolfo Carreno MD Unavailable [phone] Augustina Colin MD PhD Unavailable Unavailable Reason for Visit * Reason Onset Date Comments Medications Refill 08/03/2021 Encounter Details Date Type Department Care Team (Late st Contact Info) Description 08/03/2021 Refill [facility] Hematology & Oncology - [facility] [address] [place] [address] Augustina Colin, PhD Medications Refill Social History [...] Dispensed Refills Start Date End Da te palbociclib 100 mg capsuleIndications:Metas tatic breast cancer Take 100 mg by mouth daily. Take 100 mg daily days 1-21 and then 7 days off. Total cycle length 28 days before restarting. 21 capsule 5 08/03/2021 05/27/2022 documented in this encounter Miscellaneous Notes * Telephone Encounter - Roxanne Martin - 08/03/2021 1545 EST Medication Request Medication: Ibrance 100mg Caps Medication refill: yes Medication dose change: no Refill due: 08/03/21 Date of last fill: 07/03/21 Pharmacy: [facility] Next appt: 08/06/2021 documented in this encounter Plan of Treatment Upcoming Encounters Date Type Department Care Team (Late st Contact Info) Description 04/02/2024 10:30 EDT Appointment [facility] Interventional Radiology Unit [address] [place], [place] 562091 04/02/2024 15:15 EDT Office Visit [facility] Surgical Oncology - [facility] [address] [place], [place] [phone] Adolfo Carreno MD 111 [facility], Level 2 [place] [phone] 04/05/2024 9:30 EDT Telemedicine [facility] Palliative Care Services [address] [place], [place] 106891 Chichi Woods MD [address] [phone] 04/11/2024 15:00 EDT Telemedicine [facility] Hematology & Oncology - [address] [phone] Alisson Carreon MD [address] [place] [address] 2 [place] [phone] 04/13/2024 13:30 EDT Appointment [facility] Hematology & Oncology - [address] [phone] 04/13/2024 14:00 EDT Appointment [facility] Hematology & Oncology [address] [address] 04/16/2024 10:00 EST Telemedicine [facility] - [facility] Palliative Care Services [address] [place] [address] [phone] Chichi Woods MD [address] [place] [address] [phone] 04/24/2024 9:00 EST Appointment [facility] Radiology CT Outpatient - [address] 856331 04/24/2024 11:00 EST Appointment [facility] Breast Imaging - [address] [phone] 04/27/2024 12:00 EST Appointment [facility] [place] Hematology & Oncology - [address] [phone] 05/02/2024 15:00 EST Telemedicine [facility] Hematology & Oncology - [address] 615171 Alisson Carreon MD [address] [place] [address] 2 [place] [phone] 05/04/2024 10:15 EST Ancillary Procedure [facility] Cardiology [place] [address] 05/04/2024 11:30 EST Appointment [facility] Hematology & Oncology [address] [phone] 05/04/2024 12:00 EST Appointment [facility] Hematology & Oncology [address] [phone] 06/12/2024 13:00 EST Appointment [facility] Radiology CT - [address] [phone] documented as of this encounter Visit Diagnoses Diagnosis Metastatic breast cancer- Primary documented in this encounter Discontinued Medications Medication Sig Discontinue Reason Start Date End Da te palbociclib 100 mg capsule Take 100 mg by mouth daily. Take 100 mg daily days 1-21 and then 7 days off. Total cycle length 28 days before restarting. Reorder 03/31/2021 08/03/2021 documented as of this encounter Care Teams Business Education Instructor Relationship Specialty Start Date End Date Linda Blancas MD [address] [place] [address] 30 [place] [address] PCP - General 01/06/11 Adolfo aCrreno MD [address] [place] [address] [phone] General Surgery 04/26/19 Augustina Colin MD PhD [address] [place] [phone] Medical Oncology 04/26/19 documented as of this encounter
--- OUTSIDE RECORDS SUMMARY | 2024-03-20 14:52 | XMS_ITS | Encounter Summary ---
Author Organization [facility] Address [address] [place] [address] Care Team Providers Care Straddle Bug Name Role Phone Linda Blancas MD Primary Care Provider [phone] Adolfo Carreno MD Unavailable [phone] Augustina Colin MD PhD Unavailable Unavailable Encounter Details Date Type Department Care Team (Late st Contact Info) Description 09/18/2021 Specialty Pharmacy [facility] Ambulatory [facility] - [facility] [address] [place], [place] [id number] [facility], [facility] Social [...] Info) Description 04/02/2024 10:30 EDT Appointment [facility] Interventional Radiology Unit [address] [place] [address] [phone] 04/02/2024 15:15 EDT Office Visit [facility] Surgical Oncology - [address] 069561 Adolfo Carreno MD [address] [place] [address] 2 [place] [phone] 04/05/2024 9:30 EDT Telemedicine [facility] - [facility] Palliative Care Services [address] [place] [address] [phone] Chichi Woods MD [address] [place] [address] [phone] 04/11/2024 15:00 EDT Telemedicine [facility] Hematology & Oncology [address] [phone] Alisson Carreon MD [address] [place] [address] [phone] 04/13/2024 13:30 EDT Appointment [facility] Hematology & Oncology [address] [phone] 04/13/2024 14:00 EDT Appointment [facility] Hematology & Oncology - [address] [address] 04/16/2024 10:00 EST Telemedicine [facility] - [facility] Palliative Care Services [address] [place] [address] Chichi Woods MD [address] [place] [address], [address] [phone] 04/24/2024 9:00 EST Appointment [facility] Radiology CT Outpatient - [address] [address] 04/24/2024 11:00 EST Appointment [facility] Breast Imaging - [address] [id number] 04/27/2024 12:00 EST Appointment [facility] Hematology & Oncology - [address] [address] 05/02/2024 15:00 EST Telemedicine [facility] Hematology & Oncology - [address] [phone] Alisson Carreon MD [address] [place] [address], [facility], [facility] 2 [place] [phone] 05/04/2024 10:15 EST Ancillary Procedure [facility] Cardiology [place] [place] [address] 05/04/2024 11:30 EST Appointment [facility] Hematology & Oncology - [address] [address] 05/04/2024 12:00 EST Appointment [facility] Hematology & Oncology - [address] 272421 06/12/2024 13:00 EST [facility] Radiology CT - [address] [address] documented as of this encounter Visit Diagnoses Not on filedocumented in this encounter Care Teams Straddle Bug Relationship Specialty Start Date End Date Linda Blancas MD [facility] [address] [place] [address] PCP - General 01/06/11 Adolfo Carreno MD [address] [place] [address] [phone] General Surgery 04/26/19 Augustina Colin MD PhD [address] [place] [phone] Medical Oncology 04/26/19 documented as of this encounter
--- OUTSIDE RECORDS SUMMARY | 2024-03-20 14:52 | XMS_ITS | Encounter Summary ---
Author Organization [facility] Address [address] [place] [address] Care Team Providers Care Bilingual Case Manager Name Role Phone Linda Blancas MD Primary Care Provider [phone] Adolfo Carreno MD Unavailable [phone] Augustina Colin MD PhD Unavailable Unavailable Encounter Details Date Type Department Care Team (Latest Contact Info) Description 08/31/2021 Travel Social History Tobacco Use Types Packs/Day [...] EDT Appointment [facility] Interventional Radiology Unit [address] [place] [address] [phone] 04/02/2024 15:15 EDT Office Visit [facility] Surgical Oncology - [address] [phone] Adolfo Carreno MD [address] [place] [address] [phone] 04/05/2024 9:30 EDT Telemedicine [facility] Palliative Care Services [address] [place] [address] [phone] Chichi Woods MD [address] [place] [address] [phone] 04/11/2024 15:00 EDT Telemedicine [facility] Hematology & Oncology [address] 513771 Alisson Carreon MD [address] [place] [address] [phone] 04/13/2024 13:30 EDT Appointment [facility] Hematology & Oncology [address] 718071 04/13/2024 14:00 EDT Appointment [facility] Hematology & Oncology [address] 510451 04/16/2024 10:00 EST Telemedicine [facility] - [facility] Palliative Care Services [address] [place] [address] [phone] Chichi Woods MD [address] [place] [address], [address] [phone] 04/24/2024 9:00 EST Appointment [facility] Radiology CT Outpatient - [address] [phone] 04/24/2024 11:00 EST Appointment [facility] Breast Imaging - [facility] 1 [place], [place] 603611 04/27/2024 12:00 EST Appointment [facility] Hematology & Oncology - [address] 077331 05/02/2024 15:00 EST Telemedicine [facility] Hematology & Oncology - [address] 890301 Alisson Carreon MD [address] [place] [address], Level 2 [place] [phone] 05/04/2024 10:15 EST Ancillary Procedure [facility] Cardiology [place] [address] 05/04/2024 11:30 EST Appointment [facility] Hematology & Oncology - [address] 450331 05/04/2024 12:00 EST Appointment [facility] Hematology & Oncology [address] 137561 06/12/2024 13:00 EST Appointment [facility] Radiology CT - [address] [phone] documented as of this encounter Visit Diagnoses Not on filedocumented in this encounter Care Teams Bilingual Case Manager Relationship Specialty Start Date End Date Linda Blancas MD [facility] [address] [place] [address] PCP - General 01/06/11 Adolfo Carreno MD [address] [place] [address] 2 [place] [phone] General Surgery 04/26/19 Augustina Colin MD PhD [address] [place] [address], [facility] 2 [place] [phone] Medical Oncology 04/26/19 documented as of this encounter
--- OUTSIDE RECORDS SUMMARY | 2024-03-20 14:52 | XMS_ITS | Encounter Summary ---
Author Organization [facility] Address [address] [place] [address] Care Team Providers Care Amortization Schedule Clerk Name Role Phone Linda Blancas MD Primary Care Provider [phone] Adolfo Carreno MD Unavailable [phone] Augustina Colin MD PhD Unavailable Unavailable Reason for Visit * Reason Comments Follow-up Encounter Details Date Type Department Care Team (Late st Contact Info) Description 08/31/2021 10:30 EDT Office Visit [facility] Surgical Oncology - [address] [phone] Adolfo Carreno MD [address] [place] [address], Level [address] [place] [address] Routine cancer follow-up visit (Primary Dx); Enlarged lymph node in neck; Personal history of breast cancer Social History [...] Progress Notes * Adolfo Carreno MD - 08/31/2021 1030 EDT Sunshine Pleitez is a 61-year-old woman seen in follow-up for history of recurrent breast cancer. 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 She had a positive margin and had no additional treatments given at that point. Unfortunately she developed a recurrence of disease and that mastectomy site and was found to have distant metastatic disease as well. She underwent treatment for that and up getting a excision of the primary site in the breast and additionalreconstruction. She has had an implant on the left side as well. Most recently she has had disease in the left neck and also in the liver and some small lung nodules. Patient currently is on Faslodexand palbociclib. She has been on the palpable off-and-on but has been on it now for since June again. On exam today the patient is in no distress, there is no scleral icterus, palpation of the neck reveals no palpable cervical or supraclavicular lymph nodes. There is no nodules in the thyroid, no carotid bruits or JVD were noted. Lungs are clear to auscultation, heart is a regular rate and rhythm without S3- S4 murmurs. Breast exam reveals a mastectomy with implant on the right and the implant augmentation on the left. Palpation of the right breast reveals no palpable abnormality suspicious for recurrence is no palpable lymph nodes in the right axilla. The left side has no discrete palpable abnormalities, there is no palpable lymph nodes in the axilla. There is no abdominal masses, no hepatos plenomegaly was noted. Ultrasound of the right breast demonstrates no evidence recurrent disease in the mastectomy site. There is no abnormal lymph nodes in the internal mammary or axial region. The left breast has no architectural changes, no solid or cystic abnormalities are seen. There is no abnormal lymph nodes in the internal mammary or axillary region. Ultrasound the left neck demonstrates a lymph node in the midlevel 3 area that measures 12 x 6 x 4 mm this is slightly smaller than it had been in level 5 just above the clavicle there is a small 4 mm lymph node and another lymph node adjacent to that and measures about 6 or 7 mm that one appears to be slightly larger than it had been. No abnormal lymph nodes are seen in the right side of the neck. Impression: Patient with stage IV breast cancer with areas that are being well managed with her current medications. She does have this 1 lymph node in the left neck that appears to have gotten larger though. She will continue with her current treatment we will plan follow-up with myself in 6 months. documented in this encounter Plan of Treatment Upcoming Encounters Date Type Department Care Team (Late st Contact Info) Description 04/02/2024 10:30 EDT Appointment [facility] Interventional Radiology Unit [address] [place] [address] [phone] 04/02/2024 15:15 EDT Office Visit [facility] Surgical Oncology - [facility] [address], [place] [phone] Adolfo Carreno MD [address] [place] [address], [facility], Level [address] [place] [phone] 04/05/2024 9:30 EDT Telemedicine [facility] - [facility] Palliative Care Services [address] [place] [address] [phone] Chichi Woods MD [address] [place] [address] 262 [place] [phone] 04/11/2024 15:00 EDT Telemedicine [facility] Hematology & Oncology - [address] [phone] Alisson Carreon MD [address] [place] [address] 2 [place] [phone] 04/13/2024 13:30 EDT Appointment [facility] Hematology & Oncology - [address] [id number] 04/13/2024 14:00 EDT Appointment [facility] Hematology & Oncology - [address] [id number] 04/16/2024 10:00 EST Telemedicine [facility] - [facility] Palliative Care Services [address] [place] [address] [id number] Chichi Woods MD [address] [place] [phone] 04/24/2024 9:00 EST Appointment [facility] Radiology CT Outpatient - [address] [id number] 04/24/2024 11:00 EST Appointment [facility] Breast Imaging - [address] [id number] 04/27/2024 12:00 EST Appointment [facility] Hematology & Oncology - [address] [id number] 05/02/2024 15:00 EST Telemedicine [facility] Hematology & Oncology - [address] [phone] Alisson Carreon MD [address] [place] [address] 2 [place] [phone] 05/04/2024 10:15 EST Ancillary Procedure [facility] Cardiology - [address] [place] [address] 05/04/2024 11:30 EST Appointment [facility] Hematology & Oncology [address] [id number] 05/04/2024 12:00 EST Appointment [facility] Hematology & Oncology [address] [id number] 06/12/2024 13:00 EST Appointment [facility] Radiology CT - [address] [id number] documented as of this encounter Procedures Procedure Name Priority Date/Time Associated Diagnosis Comments ORDERS - SCANNED 09/01/2021 10:57 EDT documented in this encounter Results * ORDERS - SCANNED (09/01/2021 10:57 EDT) 09/01/2021 10:5 7 EDT Scan 2 [employer] Psych[employer] ADMISSION ORDERABLE S documented in this encounter Visit Diagnoses Diagnosis Routine cancer follow-up visit- Primary Other follow-up examination Enlarged lymph node in neck Personal history of breast cancer Personal history of malignant neoplasm of breast documented in this encounter Care Teams Amortization Schedule Clerk Relationship Specialty Start Date End Date Linda Blancas MD [facility] [address] [place] [address] PCP - General 01/06/11 Adolfo Carreno MD [address] [place] [address] [phone] General Surgery 04/26/19 Augustina Colin MD PhD [address] [place] [address] [place] [address] Medical Oncology 04/26/19 documented as of this encounter
--- OUTSIDE RECORDS SUMMARY | 2024-03-20 14:52 | XMS_ITS | Encounter Summary ---
Author Organization [facility] Address [address] [place] [address] Care Team Providers Care Heating And Refrigeration Inspector Name Role Phone Linda Blancas MD Primary Care Provider [phone] Adolfo Carreno MD Unavailable [phone] Augustina Colin MD PhD Unavailable Unavailable Encounter Details Date Type Department Care Team (Late st Contact Info) Description 08/19/2021 Orders Only [facility] Radiology - Main [place] [address] [place] [address] Don Lazo MD [address] [place] [address] [place] [phone] Social History Tobacco Use Types Packs/Day Years [...] [facility] Interventional Radiology Unit [address] [place] [address] [id number] 04/02/2024 15:15 EDT Office Visit [facility] Surgical Oncology - [address] [phone] Adolfo Carreno MD [address] [place] [address] 2 [place] [phone] 04/05/2024 9:30 EDT Telemedicine [facility] - [facility] Palliative Care Services [address] [place], [place] [phone] Chichi Woods MD [address] [place] [address], [address] [phone] 04/11/2024 15:00 EDT Telemedicine [facility] Hematology & Oncology - [address] [phone] Alisson Carreon MD [address] [place] [address] 2 [place] [phone] 04/13/2024 13:30 EDT Appointment [facility] Hematology & Oncology - [address] [id number] 04/13/2024 14:00 EDT Appointment [facility] Hematology & Oncology [address] [id number] 04/16/2024 10:00 EST Telemedicine [facility] - [facility] Palliative Care Services [address] [place] [address] [phone] Chichi Woods MD [address] [place] [address] [phone] 04/24/2024 9:00 EST Appointment [facility] Radiology CT Outpatient - [address] [id number] 04/24/2024 11:00 EST Appointment [facility] Breast Imaging - [facility] [address] 451951 04/27/2024 12:00 EST Appointment [facility] Hematology & Oncology - [address] [id number] 05/02/2024 15:00 EST Telemedicine [facility] Hematology & Oncology [address] 770461 Alisson Carreon MD [address] [place] [address], [facility] 2 [place] [phone] 05/04/2024 10:15 EST Ancillary Procedure [facility] Cardiology [place] [place] [address] 05/04/2024 11:30 EST Appointment [facility] Hematology & Oncology [address] 304391 05/04/2024 12:00 EST Appointment [facility] Hematology & Oncology [address] [address] 06/12/2024 13:00 [facility] Radiology CT - [address] [address] documented as of this encounter Visit Diagnoses Not on filedocumented in this encounter Care Teams Heating And Refrigeration Inspector Relationship Specialty Start Date End Date Linda Blancas MD [facility] [address] [place] [address] PCP - General 01/06/11 Adolfo Carreno MD [address] [place] [address] 2 [place] [phone] General Surgery 04/26/19 Augustina Colin MD PhD [address] [place] [address] 2 [place] [phone] Medical Oncology 04/26/19 documented as of this encounter
--- OUTSIDE RECORDS SUMMARY | 2024-03-20 14:52 | XMS_ITS | Encounter Summary ---
Author Organization [facility] Address [address] [place] [address] Care Team Providers Care Ios Software Engineer Name Role Phone Linda Blancas MD Primary Care Provider [phone] Adolfo Carreno MD Unavailable [phone] Augustina Colin MD PhD Unavailable Unavailable Encounter Details Date Type Department Care Team (Late st Contact Info) Description 08/19/2021 Orders Only [facility] Center Hematology & Oncology - [facility] [address] [place] [address] Quita Rob RN Social History Tobacco Use Types Packs/Day [...] Appointment [facility] Interventional Radiology Unit [address] [place] [address] [phone] 04/02/2024 15:15 EDT Office Visit [facility] Surgical Oncology - [address] [phone] Adolfo Carreno MD [address] [place] [phone] 04/05/2024 9:30 EDT Telemedicine [facility] - [facility] Palliative Care Services [address] [place] [address] [id number] Chichi Woods MD [address] [place] [phone] 04/11/2024 15:00 EDT Telemedicine [facility] Hematology & Oncology [address] [phone] Alisson Carreon MD [address] [place] [address] [phone] 04/13/2024 13:30 EDT Appointment [facility] Hematology & Oncology [address] [phone] 04/13/2024 14:00 EDT Appointment [facility] Hematology & Oncology [address] [id number] 04/16/2024 10:00 EST Telemedicine [facility] - [facility] Palliative Care Services [address] [place] [address] [phone] Chichi Woods MD [address] [place] [address], [address] [phone] 04/24/2024 9:00 EST Appointment [facility] Radiology CT Outpatient - [address] [id number] 04/24/2024 11:00 EST Appointment [facility] Breast Imaging - [facility] [place] [address] [place], [place] 577111 04/27/2024 12:00 EST Appointment [facility] Hematology & Oncology - [address] 245081 05/02/2024 15:00 EST Telemedicine [facility] Hematology & Oncology - [address] [address] Alisson Carreon MD [address] [place] [address], [facility], Level [address] [place] [phone] 05/04/2024 10:15 EST Ancillary Procedure [facility] Cardiology - [address] [place], [place] [phone] 05/04/2024 11:30 EST Appointment [facility] Hematology & Oncology - [address] 545461 05/04/2024 12:00 EST Appointment [facility] Hematology & Oncology [address] [phone] 06/12/2024 13:00 EST Appointment [facility] Radiology CT - [address] [phone] documented as of this encounter Visit Diagnoses Not on filedocumented in this encounter Care Teams Ios Software Engineer Relationship Specialty Start Date End Date Linda Blancas MD [facility] [address] [place] [address] PCP - General 01/06/11 Adolfo Carreno MD [address] [place] [address], [facility] 2 [place] [phone] General Surgery 04/26/19 Augustina Colin MD PhD [address] [place] [address], [facility] 2 [place] [phone] Medical Oncology 04/26/19 documented as of this encounter
--- OUTSIDE RECORDS SUMMARY | 2024-03-20 14:52 | XMS_ITS | Encounter Summary ---
Author Organization [facility] Address [address] [place] [address] Care Team Providers Care Needle Board Repairer Name Role Phone Linda Blancas MD Primary Care Provider [phone] Adolfo Carreno MD Unavailable [phone] Augustina Colin MD PhD Unavailable Unavailable Reason for Visit * Reason Comments Chemotherapy Encounter Details Date Type Department Care Team (Latest Contact Info) Description 08/06/2021 15:22 EST - 08/06/2021 23:59 EST Hospital Encounter [facility] Cancer Center Hematology & Oncology - Main [place] [address] [place] [address] Malignant neoplasm of right female breast, unspecified [...] Sign Reading Time Taken Comments Blood Pressure 141/73 08/06/2021 1542 EST Pulse 91 08/06/2021 1542 EST Temperature 36.1 ??C (96.9 ??F) 08/06/2021 1542 EST Respiratory Rate 17 08/06/2021 1542 EST Oxygen Saturation 97% 08/06/2021 1542 EST Inhaled Oxygen Concentration - - Weight 65.1 kg (143 lb 9.6 oz) 08/06/[address] Height - - Body Mass Index 27.04 05/14/2021 1238 EST documented in this encounter [...] Tablets by mouth as needed. 12/07/2023 mv-mn/C/glutamin/lysin /[id number] (AIRBORNE, ASCORBATE SODIUM, ORAL) Take by mouth [...] documented in this encounter Progress Notes * Elyse Álvarez RN - 08/06/2021 1530 EST Pt presents for C19 of monthly Faslodex. LFTs were WDL last month, new CMP pending. Pt feels well, very active. Denies questions/concerns. Does have hot flashes that are tolerable. IM injections administered to ventral gluteals (divided doses). Band aids applied. I was supervised by Dr. Lopez who was present and immediately available in the office suite. ELYSE ÁLVAREZ RN 08/06/2021 16:00 documented in this encounter Miscellaneous Notes * Addendum Note - Nadeen Gonzalez - 08/06/2021 1530 ESTEncounter addended by: Nadeen Gonzalez on: 08/13/2021 7:21 Actions taken: Charge Capture section accepted documented in this encounter Plan of Treatment Upcoming Encounters Date Type Department Care Team (Late st Contact Info) Description 04/02/2024 10:30 EDT Appointment [facility] Interventional Radiology Unit [address] [place] [address] 04/02/2024 15:15 EDT Office Visit [facility] Surgical Oncology - Main [place] [address] [place], [place] 949331 Adolfo Carreno MD [address] [place] [address] 2 [place] [phone] 04/05/2024 9:30 EDT Telemedicine [facility] Palliative Care Services [address] [place] [address] Chichi Woods MD [address] [place] [address] [phone] 04/11/2024 15:00 EDT Telemedicine [facility] Hematology & Oncology - [address] [address] Alisson Carreon MD [address] [place] [address] 2 [place] [phone] 04/13/2024 13:30 EDT Appointment [facility] Hematology & Oncology - [address] 189741 04/13/2024 14:00 EDT Appointment [facility] Hematology & Oncology - [address] [phone] 04/16/2024 10:00 EST Telemedicine [facility] Palliative Care Services [address] [place] [address] [phone] Chichi Woods MD [address] [place] [address] [phone] 04/24/2024 9:00 EST Appointment [facility] Radiology CT Outpatient - [address] [id number] 04/24/2024 11:00 EST Appointment [facility] Breast Imaging - [address] [address] 04/27/2024 12:00 EST Appointment [facility] Hematology & Oncology - [address] [phone] 05/02/2024 15:00 EST Telemedicine [facility] Hematology & Oncology [address] [phone] Alisson Carreon MD [address] [place] [address], Level [address] [place] [phone] 05/04/2024 10:15 EST Ancillary Procedure [facility] Cardiology - [address] [place] [address] 05/04/2024 11:30 EST Appointment [facility] Hematology & Oncology [address] [phone] 05/04/2024 12:00 EST Appointment [facility] Hematology & Oncology [address] [phone] 06/12/2024 13:00 EST Appointment [facility] Radiology CT - [address] [phone] documented as of this encounter Visit Diagnoses Diagnosis Malignant neoplasm of right female breast, unspecified estrogen receptor status, unspecified site of breast (HCC-CMS)- Primary documented in this encounter Administered Medications Inactive Administered Medications - up to 3 most recent administrations Medication Order MAR Action Action Date Dose Rate Site fulvestrant (FASLODEX) injection 500 mg 500 mg, intramuscular, NOW X1, 1 dose, On Michelle 08/06/21 at 1600, Routine Given 08/06/2021 15:50 EST 500 mg documented in this encounter Orders Appointment Requests Count Last Ordered Date Fi rst Ordered Date ONCBCN INJECTION APPOINTMENT REQUEST 1 07/15 documented in this encounter Care Teams Needle Board Repairer Relationship Specialty Start Date End Date Linda Blancas MD [facility] [address] [place] [address] PCP - General 01/06/11 Adolfo Carreno MD [address] [place] [phone] General Surgery 04/26/19 Augustina Colin MD PhD [address] [place] [phone] Medical Oncology 04/26/19 documented as of this encounter
--- OUTSIDE RECORDS SUMMARY | 2024-03-20 14:52 | XMS_ITS | Encounter Summary ---
Author Organization [facility] Address [address] [place] [address] Care Team Providers Care Contract Management Specialist Name Role Phone Linda Blancas MD Primary Care Provider Adolfo Carreno MD Unavailable [phone] Augustina Colin MD PhD Unavailable Unavailable Reason for Referral * Radiology Services (Routine/Next Available) - Closed Specialty Diagnoses / Procedures Referred By Contac t Referred To Contact Radiology Diagnoses Malignant neoplasm of right female breast, unspecified estrogen receptor status, unspecified site of breast ([facility]) Procedures MR ABDOMEN W WO CONTRAST Augustina Colin MD PhD [facility] Referral ID Status Reason Start Date Expiration Date Visits Re quested Visits Authorized [id number] Closed 11/12/2021 05/11/2022 1 1 * Radiology Services (Routine/Next Available) - Authorization Not Required Specialty Diagnoses / Procedures Referred By Contac t Referred To Contact Nuclear Medicine Diagnoses Malignant neoplasm of right female breast, unspecified estrogen receptor status, unspecified site of breast ([facility]) Procedures NM BONE WHOLE BODY Augustina Colin MD PhD [facility] Referral ID Status Reason Start Date Expiration Date Visits Requested Visits Authorized [id number] Authorization Not Required 08/19/2021 1 1 * Radiology Services (Routine/Next Available) - Closed Specialty Diagnoses / Procedures Referred By Contac t Referred To Contact Diagnoses Malignant neoplasm of right female breast, unspecified estrogen receptor status, unspecified site of breast (HCC-CMS) Procedures CT CHEST W CONTRAST Augustina Colin MD PhD [facility] Referral ID Status Reason Start Date Expiration Date Visits Re quested Visits Authorized [id number] Closed 11/16/2021 05/15/2022 1 1 Reason for Visit * Reason Comments Follow-up Encounter Details Date Type Department Care Team (Late st Contact Info) Description 08/19/2021 9:30 EST Office Visit [facility] Hematology & Oncology - [address] [address] Augustina Colin MD PhD Malignant neoplasm of [...] Sign Reading Time Taken Comments Blood Pressure 137/71 08/19/2021 0951 EST Pulse 82 08/19/2021 0951 EST Temperature 36.9 ??C (98.4 ??F) 08/19/2021 0951 EST Respiratory Rate 16 08/19/2021 0951 EST Oxygen Saturation 100% 08/19/2021 0951 EST Inhaled Oxygen Concentration - - Weight 65.8 kg (145 lb 1.6 oz) 08/19/[address] Height - - Body Mass Index 27.32 05/14/2021 1238 EST documented in this encounter [...] Notes * Augustina Colin MD PhD - 08/19/2021 0913 EST REASON FOR OFFICE VISIT: ??Discussion of side effects related to anti estrogen therapy and scan results ? PROBLEM LIST: 1. 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 a. ??Ultrasound performed in [place]??identifying an irregular heterogeneous soft tissue mass measuring [...] breast tumor 07/07/17 and placement of tissue infrastructure tech. ??1.9 cm tumor at time of surgery, well differentiated, with LVI present, and negative margins. ?? G. Biopsy left cervical LN 02/11/20 - consistent with metastatic adenocarcinoma consistent with breast primary H. Fulvestrant initiated 03/06/20; abemaciclib initiated 03/31/20 discontinued 06/01 due to diarrhea; palbociclib initiated March 2021 2. ??Restaging scans: ?? - MRI Abdomen 08/11/21: Stable to minimal decrease in size of previously seen hepatic metastases. No new lesions identified. ??- CT Chest 06/09/21: Minimal increase in a cluster of nodules or lobulated nodule is a 6 mm in diameter in the left lung apex. This is concerning for an enlarging metastatic lesion. - Nuclear bone scan??06/09/21: New focus of increased activity in the right iliac crest, suspiciousfor a new skeletal metastasis. 3. 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 ??This DCIS [...] related to faslodex and scan results. She had an MRI which identified a small decrease in the size of the liver lesions. She is not surprised by that because she has been on therapy for such a short time. Overall she feels that she is tolerating the Faslodex and the palbociclib. She is back on the palbociclib after holding it for a foot surgery. ROS: A 10 point review of systems [...] FORMULA ORAL) Take by mouth daily. ??? mv-mn/C/glutamin/lysin/cqto534 (AIRBORNE, ASCORBATE SODIUM, ORAL) Take by mouth [...] She continues to be active. Objective: BP 137/71 Pulse 82 Temp 36.9 ??C (98.4 ??F) Resp 16 Wt 65.8 kg (145 lb 1.6 oz) SpO2 100% BMI 27.32 kg/m?? Estimated body mass index is 27.32 kg/m?? as calculated from the following: Height as of 05/14/21: 155.2 cm (61.1). Weight as of this encounter: 65.8 kg (145 lb 1.6 oz). ECOG Performance Status: 0 General: Comfortable, cooperative and in no apparent distress NEURO: Alert and oriented x 3; Grossly neurologically intact DIAGNOSTIC DATA No visits with results within 1 Day(s) from this visit. Latest known visit with results is: Phlebotomy Only on 08/06/2021 Component Date Value Ref Range Status ??? Sodium 08/06/2021 140 136 - 145 mmol/L Final ??? Potassium 08/06/2021 3.9 3.5 - 5.0 mmol/L Final ??? Chloride 08/06/2021 105 96 - 110 mmol/L Final ??? CO2 Total 08/06/2021 27 22 - 32 mmol/L Final ??? Glucose 08/06/2021 118 (A) 70 - 100 mg/dL Final ??? BUN 08/06/2021 22 10 - 26 mg/dL Final ??? Creatinine 08/06/2021 0.85 0.52 - 1.04 mg/dL Final ? ? eGFR 08/06/2021 75 >60 mL/min/1.73m2 Final ??? Total Protein 08/06/2021 6.8 6.3 - 8.2 g/dL Final ??? Albumin 08/06/2021 4.3 3.4 - 4.9 g/dL Final ??? Alkaline Phosphatase 08/06/2021 73 38 - 126 U/L Final ??? AST 08/06/2021 28 15 - 46 U/L Final ? ? ALT 08/06/2021 15 <35 U/L Final ? ? Bilirubin, Total 08/06/2021 <0.5 <1.4 mg/dL Final ??? Calcium 08/06/2021 9.3 8.5 - 10.5 mg/dL Final ??? Magnesium 08/06/2021 1.9 1.7 - 2.8 mg/dL Final ??? Albumin/Globulin Ratio 08/06/2021 1.7 1.0 - 2.5 Final ??? Anion Gap 08/06/2021 8 5 - 14 Final ??? WBC 08/06/2021 4.30 4.00 - 12.40 K/cmm Final ??? RBC 08/06/2021 3.35 (A) 3.86 - 5.04 M/cmm Final ??? Hemoglobin 08/06/2021 12.2 11.6 - 15.2 gm/dL Final ??? HCT 08/06/2021 34.4 (A) 34.9 - 44.4 % Final ??? MCV 08/06/2021 103 (A) 81 - 98 fl Final ??? MCH 08/06/2021 36.4 (A) 26.7 - 33.3 pg Final ??? MCHC 08/06/2021 35.5 32.1 - 35.9 gm/dL Final ? ? RDW-CV 08/06/2021 15.1 (A) <14.7 % Final ? ? RDW-SD 08/06/2021 55.8 (A) <50.4 fl Final ??? PLT 08/06/2021 194 141 - 377 K/cmm Final ??? MPV 08/06/2021 9.3 (A) 9.5 - 12.7 fl Final ??? Neutrophils 08/06/2021 30.9 % Final ??? Lymphocytes 08/06/2021 57.9 % Final ??? Monocytes 08/06/2021 8.4 % Final ??? Eosinophils 08/06/2021 1.6 % Final ??? Basophils 08/06/2021 1.2 % Final ??? Immature Grans 08/06/2021 0.0 % Final ??? Absolute Neutrophils 08/06/2021 1.33 (A) 2.20 - 8.85 K/cmm Final ??? Absolute Lymphocytes 08/06/2021 2.49 1.09 - 3.30 K/cmm Final ??? Absolute Monocytes 08/06/2021 0.36 0.10 - 0.80 K/cmm Final ??? Absolute Eosinophils 08/06/2021 0.07 0.03 - 0.61 K/cmm Final ??? Absolute Basophils 08/06/2021 0.05 0.01 - 0.11 K/cmm Final ??? Absolute Immature Grans 08/06/2021 0.00 0.00 - 0.06 K/cmm Final ??? Type of Differential: 08/06/2021 Auto Final ASSESSMENT: ??Ms Bernstein is a 60-year-old female with metastatic breast cancer.?? She startedon fluvesterant fall with abemaciclib added in March 2020 which was discontinued a few months later due to significant diarrhea. She restarted palbociclib in March since scan results fromJune indicated a mixed response. MRI scans from earlier this month indicated a small improvement inthe size of the hepatic lesions. She had only been back on palbociclib for about 6 weeks. She is tolerating both the Faslodex and the palbociclib. Zolendronic acid every 6 mos. She takes a vitamin D supplement and we have encouraged weight bearing exercise. PLAN: 1. Faslodex 500mg in about a week and monthly 2. Palbocilb 100mg daily 21 out of 28 days, CBCD monthly 3. Zoledronic acid q 6mo, next due July 2021 4. MR abdomen in approx 3 mos to assess response; Also restaging CT chest and nuclear bone scan in the same time frame. 5.??Continued follow-up with Dr. Carreno and Dr Boss 6. FUR late Jul Patient is encouraged call with any intercurrent concerns or problems. documented in this encounter Miscellaneous Notes * Addendum Note - Augustina Colin MD PhD - 08/19/2021 0930 ESTAddended by: AUGUSTINA COLIN on: 08/19/2021 17:23 Modules accepted: Orders documented in this encounter Plan of Treatment Upcoming Encounters Date Type Department Care Team (Late st Contact Info) Description 04/02/2024 10:30 EDT Appointment [facility] Interventional Radiology Unit [address] [place], [place] [id number] 04/02/2024 15:15 EDT Office Visit [facility] Surgical Oncology - [address] [phone] Adolfo Carreno MD [address] [place] [address] [phone] 04/05/2024 9:30 EDT Telemedicine [facility] Palliative Care Services [address] [place] [address] 328661 Chichi Woods MD [address] [place] [address] [phone] 04/11/2024 15:00 EDT Telemedicine [facility] Hematology & Oncology - [address] [phone] Alisson Carreon MD [address] [place] [address] [phone] 04/13/2024 13:30 EDT Appointment [facility] Hematology & Oncology [address] [id number] 04/13/2024 14:00 EDT Appointment [facility] Hematology & Oncology [address] [id number] 04/16/2024 10:00 EST Telemedicine [facility] Palliative Care Services [address] [place] [address] [phone] Chichi Woods MD [address] [place] [address] [phone] 04/24/2024 9:00 EST Appointment [facility] Radiology CT Outpatient - [address] [address] 04/24/2024 11:00 EST Appointment [facility] Breast Imaging - [facility] [address] [place] [address] 04/27/2024 12:00 EST Appointment [facility] Hematology & Oncology [address] [address] 05/02/2024 15:00 EST Telemedicine [facility] Hematology & Oncology [address] [phone] Alisson Carreon MD [address] [place] [address], Level [address] [place] [phone] 05/04/2024 10:15 EST Ancillary Procedure [facility] Cardiology [place] [address] 05/04/2024 11:30 EST Appointment [facility] Hematology & Oncology [address] [phone] 05/04/2024 12:00 EST Appointment [facility] Hematology & Oncology [address] [phone] 06/12/2024 13:00 EST Appointment [facility] Radiology CT - [address] [phone] documented as of this encounter Results * [...] Colin MD PhD IMG CT ORDERABLES * MR ABDOMEN W WO CONTRAST (11/23/2021 [...] PM Signs and Symptoms/Comments: ?? cancer Technique: Ey-ldt-rxf-of-phase, T2-weighted, diffusion weighted images were followed by [...] 1:45 PM Signs and Symptoms/Comments: cancer Technique: Dy-guf-lzt-of-phase, T2-weighted, diffusion weighted images were followedby dynamic gadolinium enhanced T1 fat-suppressed gradient echo images ofthe abdomen. Subtraction imaging performed. Comparison: Multiple prior MRs of the abdomen, most recently [facility]11[facility]2021[facility]. Findings: Lower [...] the hepatic dome now measures 14 mm ([id number], image #84), previously 6 mm. -A [...] Colin MD PhD IMG MRI ORDERABLES * NM BONE WHOLE BODY (11/23/2021 12:49 [...] of skeletalmetastatic disease Augustina Colin MD PhD [facility] [place] ORDERABLES documented in this encounter Visit Diagnoses Diagnosis Malignant neoplasm of right female breast, unspecified estrogen receptor status, unspecified site of breast (HCC-CMS)- Primary Malignant neoplasm of right female breast, unspecified estrogen receptor status, unspecified site of breast (HCC-CMS) Malignant neoplasm of right female breast, unspecified estrogen receptor status, unspecified site of breast (HCC-CMS) Malignant neoplasm of right female breast, unspecified estrogen receptor status, unspecified site of breast (HCC-CMS) documented in this encounter Orders Appointment Requests Count Last Ordered Date Fi rst Ordered Date ONCBCN INJECTION APPOINTMENT REQUEST 4 11/1109/03/2021 documented in this encounter Care Teams Contract Management Specialist Relationship Specialty Start Date End Date Linda Blancas MD [facility] [address] [place] [address] PCP - General 01/06/11 Adolfo Carreno MD [address] [place] [phone] General Surgery 04/26/19 Augustina Colin MD PhD [address] [place] [address] 2 [place] [phone] Medical Oncology 04/26/19 documented as of this encounter
--- OUTSIDE RECORDS SUMMARY | 2024-03-20 14:52 | XMS_ITS | Encounter Summary ---
Author Organization [facility] Address [address] [place] [address] Care Team Providers Care Cloth Worker Name Role Phone Linda Blancas MD Primary Care Provider [phone] Adolfo Carreno MD Unavailable [phone] Augustina Colin MD PhD Unavailable Unavailable Reason for Visit * Reason Onset Date Comments Appointment Related 09/03/2021 Encounter Details Date Type Department Care Team (Late st Contact Info) Description 09/03/2021 Telephone [facility] [address] [place], [place] [phone] Augustina Colin, PhD Appointment Related Social History [...] * Telephone Encounter - Jessie Barber - 09/03/2021 0905 EDT Screening Questions prior to Med Release [...] Appointment [facility] Interventional Radiology Unit [address] [place], [place] [phone] 04/02/2024 15:15 EDT Office Visit [facility] Surgical Oncology - [facility] [address] [place], [place] [phone] Adolfo Carreno MD 111 [facility] 2 [place] [phone] 04/05/2024 9:30 EDT Telemedicine [facility] Palliative Care Services [address] [place] [address] [phone] Chichi Woods MD [address] [place] [address] [phone] 04/11/2024 15:00 EDT Telemedicine [facility] Hematology & Oncology - [address] [phone] Alisson Carreon MD [address] [place] [address], [address] [place] [phone] 04/13/2024 13:30 EDT Appointment [facility] Hematology & Oncology - [address] [phone] 04/13/2024 14:00 EDT Appointment [facility] Hematology & Oncology [address] [phone] 04/16/2024 10:00 EST Telemedicine [facility] Palliative Care Services [address] [place] [address] [phone] Chichi Woods MD [address] [place] [address] [phone] 04/24/2024 9:00 EST Appointment [facility] Radiology CT Outpatient - [address] [phone] 04/24/2024 11:00 EST Appointment [facility] Breast Imaging - [address] [phone] 04/27/2024 12:00 EST Appointment [facility] Hematology & Oncology - [address] [phone] 05/02/2024 15:00 EST Telemedicine [facility] Hematology & Oncology [address] [phone] Alisson Carreon MD [address] [place] [address] [phone] 05/04/2024 10:15 EST Ancillary Procedure [facility] Cardiology - [address] [place] [address] 05/04/2024 11:30 EST Appointment [facility] Hematology & Oncology [address] 624101 05/04/2024 12:00 EST Appointment [facility] Hematology & Oncology [address] [phone] 06/12/2024 13:00 EST Appointment [facility] Radiology CT - [address] [phone] documented as of this encounter Visit Diagnoses Not on filedocumented in this encounter Care Teams Cloth Worker Relationship Specialty Start Date End Date Linda Blancas MD [address] [place] [address] [phone] PCP - General 01/06/11 Adolfo Carreno MD [address] [place] [address] [phone] General Surgery 04/26/19 Augustina Colin MD PhD [address] [place] [phone] Medical Oncology 04/26/19 documented as of this encounter
--- OUTSIDE RECORDS SUMMARY | 2024-03-20 14:53 | XMS_ITS | Encounter Summary ---
Author Organization [facility] Address [address] [place] [address] Care Team Providers Care Records Management Clerk Name Role Phone Linda Blancas MD Primary Care Provider [phone] Adolfo Carreno MD Unavailable [phone] Augustina Colin MD PhD Unavailable Unavailable Reason for Visit * Reason Comments Injections Encounter Details Date Type Department Care Team (Latest Contact Info) Description 07/10/2021 11:06 EST - 07/10/2021 23:59 EST Hospital Encounter [facility] Cancer Center Hematology & Oncology - [place] [address] [place] [address] Malignant neoplasm of right female breast, unspecified [...] Sign Reading Time Taken Comments Blood Pressure 144/70 07/10/2021 1115 EST Pulse 92 07/10/2021 1115 EST Temperature 36.1 ??C (97 ??F) 07/10/2021 1115 EST Respiratory Rate 16 07/10/2021 1115 EST Oxygen Saturation 99% 07/10/2021 1115 EST Inhaled Oxygen Concentration - - Weight 66.5 kg (146 lb 8 oz) 07/10/2021 1115 EST Height - - Body Mass Index 27.59 05/14/2021 1238 EST documented in this encounter [...] Tablets by mouth as needed. 12/07/2023 mv-mn/C/glutamin/lysin /hvcc482 (AIRBORNE, ASCORBATE SODIUM, ORAL) Take by mouth as needed. 12/14/2023 omeprazole (PRILOSEC) 20 mg capsule Take 1 Capsule by mouth daily. 03/28/2023 palbociclib 100 mg capsule Take 100 mg by mouth daily. Take 100 mg daily days 1-21 and then 7 days off. Total cycle length 28 days before restarting. 21 capsule 3 03/31/2021 08/03/2021 venlafaxine (EFFEXOR-XR) 150 mg XR capsule Take 1 Cap by mouth daily. 90 Cap 3 08/16/2012 12/14/2023 zolpidem (AMBIEN) 5 mg tablet Take 5 mg by mouth at bedtime as needed for Sleep. Reported on 11/01/2016 01/13/2022 documented as of this encounter Discharge Disposition Disposition Code Departure Means Destination Home or Self Care documented in this encounter Progress Notes * Musa Gar RN - 07/10/2021 1130 EST Patient arrives today for cycle 18 day 1 of Fulvestrant. Faslodex 500 mg administered IM to right and left gluteus (250 mg to each side) . Patient toleratedwithout issue, band aids applied. I was supervised by Dr. Killian who was present and immediately available in the office suite. MUSA GAR RN 07/10/2021 11:42 documented in this encounter Miscellaneous Notes * Addendum Note - Yovana Peter - 07/10/2021 1130 ESTEncounter addended by: Yovana Peter on: 07/15/2021 14:51 Actions taken: Charge Capture section accepted documented in this encounter Plan of Treatment Upcoming Encounters Date Type Department Care Team (Late st Contact Info) Description 04/02/2024 10:30 EDT Appointment [facility] Interventional Radiology Unit [address] [place] [address] 04/02/2024 15:15 EDT Office Visit [facility] Surgical Oncology - [facility] [address] [place] [address] Adolfo Carreno MD 111 [facility], Level 2 [place] [phone] 04/05/2024 9:30 EDT Telemedicine [facility] Palliative Care Services [address] [place] [address] [phone] Chichi Woods MD [address] [place] [address] [phone] 04/11/2024 15:00 EDT Telemedicine [facility] Hematology & Oncology - [address] [phone] Alisson Carreon MD [address] [place] [address] [phone] 04/13/2024 13:30 EDT Appointment [facility] Hematology & Oncology - [address] [phone] 04/13/2024 14:00 EDT Appointment [facility] Hematology & Oncology [address] [phone] 04/16/2024 10:00 EST Telemedicine [facility] Palliative Care Services [address] [place] [address] Chichi Woods MD [address] [place] [address] [phone] 04/24/2024 9:00 EST Appointment [facility] Radiology CT Outpatient - [address] [phone] 04/24/2024 11:00 EST Appointment [facility] Breast Imaging - [address] 407491 04/27/2024 12:00 EST Appointment [facility] Hematology & Oncology [address] [address] 05/02/2024 15:00 EST Telemedicine [facility] Hematology & Oncology [address] [address] Alisson Carreon MD [address] [place] [address], [address] [place] [phone] 05/04/2024 10:15 EST Ancillary Procedure [facility] Cardiology - [address] [place] [address] 05/04/2024 11:30 EST Appointment [facility] Hematology & Oncology [address] [address] 05/04/2024 12:00 EST Appointment [facility] Hematology & Oncology [address] [phone] 06/12/2024 13:00 EST Appointment [facility] Radiology CT - [address] [phone] documented as of this encounter Visit Diagnoses Diagnosis Malignant neoplasm of right female breast, unspecified estrogen receptor status, unspecified site of breast (HCC-CMS)- Primary documented in this encounter Administered Medications Inactive Administered Medications - up to 3 most recent administrations Medication Order MAR Action Action Date Dose Rate Site fulvestrant (FASLODEX) injection 500 mg 500 mg, intramuscular, NOW X1, 1 dose, On Tue07/10/21 at 1145, Routine Given 07/10/2021 11:47 EST 500 mg Left Gluteus Medius/Ventrogluteal documented in this encounter Orders Appointment Requests Count Last Ordered Date Fi rst Ordered Date ONCBCN INJECTION APPOINTMENT REQUEST 1 06/14 documented in this encounter Care Teams Records Management Clerk Relationship Specialty Start Date End Date Linda Blancas MD [address] [place] [address] PCP - General 01/06/11 Adolfo Carreno MD [address] [place] [address], [facility] 2 [place] [phone] General Surgery 04/26/19 Augustina Colin MD PhD [address] [place] [address] 2 [place] [phone] Medical Oncology 04/26/19 documented as of this encounter
--- OUTSIDE RECORDS SUMMARY | 2024-03-20 14:53 | XMS_ITS | Encounter Summary ---
Author Organization [facility] Address [address] [place] [address] Care Team Providers Care Wash Operator Name Role Phone Linda Blancas MD Primary Care Provider [phone] Adolfo Carreno MD Unavailable [phone] Augustina Colin MD PhD Unavailable Unavailable Reason for Visit * Radiology Services (Routine/Next Available) - Authorization Not Required Specialty Diagnoses / Procedures Referred By Contac t Referred To Contact Nuclear Medicine Diagnoses Malignant neoplasm of right female breast, unspecified estrogen receptor status, unspecified site of breast ([facility]) Procedures NM BONE WHOLE BODY Augustina Colin, PhD Referral ID Status Reason Start Date Expiration Date Visits Requested Visits Authorized [id number] Authorization Not Required 03/19/2021 1 1 Encounter Details Date Type Department Care Team (Latest Contact Info) Description 06/09/2021 9:44 EST - 06/09/2021 23:59 EST Hospital Encounter [facility] Radiology Nuclear Medicine and PET - [address] [address] Discharge Disposition: Home or Self Care Social [...] Tablets by mouth as needed. 12/07/2023 mv-mn/C/glutamin/lysin /[id number] (AIRBORNE, ASCORBATE SODIUM, ORAL) Take by mouth [...] Appointment [facility] Interventional Radiology Unit [address] [place] [address] [phone] 04/02/2024 15:15 EDT Office Visit [facility] Surgical Oncology - [address] [phone] Adolfo Carreno MD [address] [place] [address] [phone] 04/05/2024 9:30 EDT Telemedicine [facility] Palliative Care Services [address] [place] [address] [phone] Chichi Woods MD [address] [place] [address] [phone] 04/11/2024 15:00 EDT Telemedicine [facility] Hematology & Oncology [address] 158671 Alisson Carreon MD [address] [place] [address] [phone] 04/13/2024 13:30 EDT Appointment [facility] Hematology & Oncology [address] [address] 04/13/2024 14:00 EDT Appointment [facility] Hematology & Oncology [address] [id number] 04/16/2024 10:00 EST Telemedicine [facility] Palliative Care Services [address] [place] [address] [phone] Chichi Woods MD [address] [place] [address], [address] [phone] 04/24/2024 9:00 EST Appointment [facility] Radiology CT Outpatient - [address] [id number] 04/24/2024 11:00 EST Appointment [facility] Breast Imaging - [facility] 1 [place], [place] 316041 04/27/2024 12:00 EST Appointment [facility] Hematology & Oncology - [address] [phone] 05/02/2024 15:00 EST Telemedicine [facility] Hematology & Oncology - [address] [phone] Alisson Carreon MD [address] [place] [address], Level 2 [place] [phone] 05/04/2024 10:15 EST Ancillary Procedure [facility] Cardiology - [address] [place], [place] [phone] 05/04/2024 11:30 EST Appointment [facility] Hematology & Oncology - [address] [id number] 05/04/2024 12:00 EST Appointment [facility] Hematology & Oncology [address] [phone] 06/12/2024 13:00 EST Appointment [facility] Center Radiology CT - [address] [phone] documented as of this encounter Procedures Procedure Name Priority Date/Time Associated Diagnosis Comments NM BONE WHOLE BODY Routine 06/09/2021 13 :37 EST Malignant neoplasm of right female breast, unspecified estrogen receptor status, unspecified site of breast (HCC-CMS) (HCC) (HCC-CMS) documented in this encounter Results * NM BONE WHOLE BODY (06/09/2021 13:37 EST) Anatomical Region Laterality Modality Nuclear Medicine 06/09/2021 14:0 2 EST Impressions 06/09/2021 14:02 EST 1. New focus of increased activity in the right iliac crest, suspicious for a new skeletal metastasis. 2. New subtle focus as described in the region of T5, probably related to degenerative disc disease or arthrosis although metastasis is not excluded. 3. Otherwise stable bone scan. Narrative 06/09/2021 14:02 EST NM BONE WHOLE BODY ??06/09/2021 12:00 PM Signs and Symptoms: ??cancer; Breast, neoplasm Comparison: Bone scan November 24, 2020, CT scan of the chest done today Technique: Approximately two hours after the IV injection of 18.8 mCi Tc-99m MDP, anterior and posterior whole body bone images were obtained. Findings: There is stable increased activity in the cervical spine, attributed to degenerative disease. Uptake in the lumbar spine associated with prior spinal fusion is also stable or slightly diminished compared with the prior examination. There is a new focus of increased activity in the right iliac crest, highly suspicious for a new skeletal metastatic focus. There is also a subtle new focus of increased activity just left of midline at the level of T5. This is of uncertain etiology. Since it is new since the last examination, a metastatic focus has to be considered, although the CT scan of the chest shows considerable degenerative disc disease and no sclerotic or lytic lesion at this level. No other new abnormality is seen. Procedure Note Samuel Bowen MD - 06/09/2021 NM BONE WHOLE BODY 06/09/2021 12:00 PM Signs and Symptoms: cancer; Breast, neoplasm Comparison: Bone scan November 24, 2020, CT scan of the chest done today Technique: Approximately two hours after the IV injection of 18.8 mCi Tc-99m MDP,anterior and posterior whole body bone images were obtained. Findings: There is stable increased activity in the cervical spine, attributed todegenerative disease. Uptake in the lumbar spine associated with priorspinal fusion is also stable or slightly diminished compared with theprior examination. There is a new focus of increased activity in the rightiliac crest, highly suspicious for a new skeletal metastatic focus. Thereis also a subtle new focus of increased activity just left of midline atthe level of T5. This is of uncertain etiology. Since it is new since thelast examination, a metastatic focus has to be considered, although the CTscan of the chest shows considerable degenerative disc disease and nosclerotic or lytic lesion at this level. No other new abnormality isseen. IMPRESSION 1. New focus of increased activity in the right iliac crest, suspiciousfor a new skeletal metastasis. 2. New subtle focus as described in the region of T5, probably related todegenerative disc disease or arthrosis although metastasis is notexcluded. 3. Otherwise stable bone scan. Augustina Colin MD PhD IMG NM ORDERABLES documented in this encounter Visit Diagnoses Not on filedocumented in this encounter Care Teams Wash Operator Relationship Specialty Start Date End Date Linda Blancas MD [facility] [address] [place] [address] PCP - General 01/06/11 Adolfo Carreno MD [address] [place] [address] [phone] General Surgery 04/26/19 Augustina Colin MD PhD [address] [place] [address], [address] [phone] Medical Oncology 04/26/19 documented as of this encounter
--- OUTSIDE RECORDS SUMMARY | 2024-03-20 14:53 | XMS_ITS | Encounter Summary ---
Author Organization [facility] Address [address] [place] [address] Care Team Providers Care Belt Notcher Name Role Phone Linda Blancas MD Primary Care Provider [phone] Adolfo Carreno MD Unavailable [phone] Augustina Colin MD PhD Unavailable Unavailable Reason for Visit * Reason Comments Injections Encounter Details Date Type Department Care Team (Latest Contact Info) Description 05/14/2021 12:34 EST - 05/14/2021 23:59 EST Hospital Encounter [facility] Hematology & Oncology - [facility] [place] [address] [place] [address] Malignant neoplasm of right female breast, unspecified [...] Sign Reading Time Taken Comments Blood Pressure 139/59 05/14/2021 1238 EST Pulse 81 05/14/2021 1238 EST Temperature 36.6 ??C (97.8 ??F) 05/14/2021 1238 EST Respiratory Rate 16 05/14/2021 1238 EST Oxygen Saturation 98% 05/14/2021 1238 EST Inhaled Oxygen Concentration - - Weight 63.7 kg (140 lb 6.4 oz) 05/14/[address] Height 155.2 cm (5' 1.1) 05/14/2021 1238 EST Body Mass Index 26.44 05/14/2021 1238 EST documented in this encounter [...] by mouth daily. 90 Tab 3 08/16/2012 acetaminophen (TYLENOL) 325 mg tablet Take 2 tablets by mouth every 4 hours as needed for Pain. 08/30/2018 05/26/2021 DOXYLAMINE SUCCINATE (UNISOM ORAL) Take by mouth as needed. Takes half a tablet 02/02/2011 01/13/2022 gabapentin (NEURONTIN) 100 mg capsule Take 2 Caps by mouth 2 times daily. 360 Cap 3 08/16/2012 12/14/2023 HYDROmorphone (DILAUDID) 2 mg tablet Take 1 Tab by mouth every 4 hours as needed for Pain. Daily Max: 12 mg 10 Tab 09/08/2020 05/26/2021 ibuprofen (MOTRIN) 200 mg tablet Take 2 Tablets by mouth as needed. 12/07/2023 mv-mn/C/glutamin/lysin /[id number] (AIRBORNE, ASCORBATE SODIUM, ORAL) Take by mouth [...] documented in this encounter Progress Notes * Kayla Altamirano RN - 05/14/2021 1300 EST Out-patient Injection Note Patient presents to clinic today for cycle # 16 day # 1 of Faslodex treatment plan. Patient feels well today. Reviewed lab results with patient. Parameters for today???s treatment met.. Patient received 500 mg in bilateral upper outer quadrants of gluteus. Patient tolerating therapy. Reviewed side effect profile. Patient education: Patient verbally educated on all medications administered today, side effects, and symptom management. Patient verbally expressed understanding of education provided no barriers identified Patient and family encouraged to call clinic with any issues. I was supervised by Dr. Cowart who was present and immediately available in the office suite. KAYLA ALTAMIRANO RN documented in this encounter Miscellaneous Notes * Addendum Note - Reta Kuhn - 05/14/2021 1300 ESTEncounter addended by: Reta Kuhn on: 06/16/2021 11:01 Actions taken: Charge Capture section accepted documented in this encounter Plan of Treatment Upcoming Encounters Date Type Department Care Team (Late st Contact Info) Description 04/02/2024 10:30 EDT Appointment [facility] Interventional Radiology Unit [address] [place] [address] [phone] 04/02/2024 15:15 EDT Office Visit [facility] Surgical Oncology - [address] [phone] Adolfo Carreno MD [address] [place] [address] 2 [place] [phone] 04/05/2024 9:30 EDT Telemedicine [facility] [place] Palliative Care Services [address] [place] [address] [phone] Chichi Woods MD [address] [place] [address] [phone] 04/11/2024 15:00 EDT Telemedicine [facility] Hematology & Oncology [address] [phone] Alisson Carreon MD [address] [place] [address] 2 [place] [phone] 04/13/2024 13:30 EDT Appointment [facility] Hematology & Oncology [address] [phone] 04/13/2024 14:00 EDT Appointment [facility] Hematology & Oncology [address] [phone] 04/16/2024 10:00 EST Telemedicine [facility] Palliative Care Services [address] [place] [address] [phone] Chichi Woods MD [address] [place] [address], [address] [phone] 04/24/2024 9:00 EST Appointment [facility] Radiology CT Outpatient - [address] [id number] 04/24/2024 11:00 EST Appointment [facility] Breast Imaging - [facility] 1 [place], [place] [phone] 04/27/2024 12:00 EST Appointment [facility] Hematology & Oncology [address] [phone] 05/02/2024 15:00 EST Telemedicine [facility] Hematology & Oncology [address] [phone] Alisson Carreon MD [address] [place] [address], Level [address] [place] [phone] 05/04/2024 10:15 EST Ancillary Procedure [facility] Cardiology [place] [address] [place] [address] 05/04/2024 11:30 EST Appointment [facility] Hematology & Oncology [address] [id number] 05/04/2024 12:00 EST Appointment [facility] Hematology & Oncology - [address] [phone] 06/12/2024 13:00 EST Appointment [facility] Radiology CT - [address] [phone] documented as of this encounter Visit Diagnoses Diagnosis Malignant neoplasm of right female breast, unspecified estrogen receptor status, unspecified site of breast (HCC-CMS)- Primary documented in this encounter Administered Medications Inactive Administered Medications - up to 3 most recent administrations Medication Order MAR Action Action Date Dose Rate Site fulvestrant (FASLODEX) injection 500 mg 500 mg, intramuscular, NOW X1, 1 dose, On Michelle 05/14/21 at 1315, Routine Given 05/14/2021 13:02 EST 500 mg documented in this encounter Orders Appointment Requests Count Last Ordered Date Fi rst Ordered Date ONCBCN INJECTION APPOINTMENT REQUEST 1 07/2020 documented in this encounter Care Teams Belt Notcher Relationship Specialty Start Date End Date Linda Blancas MD [facility] [address] [place] [address] PCP - General 01/06/11 Adolfo Carreno MD [address] [place] [phone] General Surgery 04/26/19 Augustina Colin MD PhD [address] [place] [phone] Medical Oncology 04/26/19 documented as of this encounter
--- OUTSIDE RECORDS SUMMARY | 2024-03-20 14:53 | XMS_ITS | Encounter Summary ---
Author Organization [facility] Address [address] [place] [address] Care Team Providers Care Upper Stitcher Name Role Phone Linda Blancas MD Primary Care Provider [phone] Adolfo Carreno MD Unavailable [phone] Augustina Colin MD PhD Unavailable Unavailable Encounter Details Date Type Department Care Team (Late st Contact Info) Description 06/08/[address] [facility] Cancer Center Hematology & Oncology - [facility] [address] [place] [address] Augustina Colin, PhD Social History Tobacco Use [...] Contact Info) Description 04/02/2024 10:30 EDT Appointment [facility] Interventional Radiology Unit [address] [place] [address] [phone] 04/02/2024 15:15 EDT Office Visit [facility] Surgical Oncology - [address] [phone] Adolfo Carreno MD [address] [place] [address] [phone] 04/05/2024 9:30 EDT Telemedicine [facility] - [facility] Palliative Care Services [address] [place] [address] [phone] Chichi Woods MD [address] [place] [address] [phone] 04/11/2024 15:00 EDT Telemedicine [facility] Hematology & Oncology [address] [phone] Alisson Carreon MD [address] [place] [address] [phone] 04/13/2024 13:30 EDT Appointment [facility] Hematology & Oncology [address] [id number] 04/13/2024 14:00 EDT Appointment [facility] Hematology & Oncology [address] [phone] 04/16/2024 10:00 EST Telemedicine [facility] - [facility] Palliative Care Services [address] [place] [address] [phone] Chichi Woods MD [address] [place] [address], [address] [phone] 04/24/2024 9:00 EST Appointment [facility] Radiology CT Outpatient - [address] [id number] 04/24/2024 11:00 EST Appointment [facility] Breast Imaging - [facility] [address] [place] [address] [place], [place] 347681 04/27/2024 12:00 EST Appointment [facility] Hematology & Oncology - [address] [phone] 05/02/2024 15:00 EST Telemedicine [facility] Hematology & Oncology - [address] [address] Alisson Carreon MD [address] [place] [address], [facility], Level [address] [place] [phone] 05/04/2024 10:15 EST Ancillary Procedure [facility] Cardiology - [address] [place], [place] [phone] 05/04/2024 11:30 EST Appointment [facility] Hematology & Oncology - [address] [id number] 05/04/2024 12:00 EST Appointment [facility] Hematology & Oncology [address] [phone] 06/12/2024 13:00 EST Appointment [facility] Radiology CT - [address] [phone] documented as of this encounter Visit Diagnoses Not on filedocumented in this encounter Care Teams Upper Stitcher Relationship Specialty Start Date End Date Linda Blancas MD [facility] [address] [place] [address] PCP - General 01/06/11 Adolfo Carreno MD [address] [place] [address], [facility] 2 [place] [phone] General Surgery 04/26/19 Augustina Colin MD PhD [address] [place] [address], [facility] 2 [place] [phone] Medical Oncology 04/26/19 documented as of this encounter
--- OUTSIDE RECORDS SUMMARY | 2024-03-20 14:53 | XMS_ITS | Encounter Summary ---
Author Organization [facility] Address [address] [place] [address] Care Team Providers Care Personal Assistant Name Role Phone Linda Blancas MD Primary Care Provider [phone] Adolfo Carreno MD Unavailable [phone] Augustina Colin MD PhD Unavailable Unavailable Encounter Details Date Type Department Care Team (Late st Contact Info) Description 07/09/2021 Orders Only [facility] Cancer Center Hematology & Oncology - [facility] [address] [place] [address] Augustina Colin, PhD Social History Tobacco Use [...] Appointment [facility] Interventional Radiology Unit [address] [place] [address] [phone] 04/02/2024 15:15 EDT Office Visit [facility] Surgical Oncology - [address] [phone] Adolfo Carreno MD [address] [place] [address] [phone] 04/05/2024 9:30 EDT Telemedicine [facility] - [facility] Palliative Care Services [address] [place] [address] [phone] Chichi Woods MD [address] [place] [address] [phone] 04/11/2024 15:00 EDT Telemedicine [facility] Hematology & Oncology [address] [phone] Alisson Carreon MD [address] [place] [address] [phone] 04/13/2024 13:30 EDT Appointment [facility] Hematology & Oncology [address] [phone] 04/13/2024 14:00 EDT Appointment [facility] Hematology & Oncology [address] [phone] 04/16/2024 10:00 EST Telemedicine [facility] - [facility] Palliative Care Services [address] [place] [address] [phone] Chichi Woods MD [address] [place] [address], [address] [phone] 04/24/2024 9:00 EST Appointment [facility] Radiology CT Outpatient - [address] [id number] 04/24/2024 11:00 EST Appointment [facility] Breast Imaging - [facility] [place] [address] [place], [place] 386581 04/27/2024 12:00 EST Appointment [facility] Hematology & Oncology - [address] [phone] 05/02/2024 15:00 EST Telemedicine [facility] Hematology & Oncology - [address] [address] Alisson Carreon MD [address] [place] [address], [facility], Level [address] [place] [phone] 05/04/2024 10:15 EST Ancillary Procedure [facility] Cardiology - [address] [place], [place] [phone] 05/04/2024 11:30 EST Appointment [facility] Hematology & Oncology - [address] [id number] 05/04/2024 12:00 EST Appointment [facility] Hematology & Oncology [address] [phone] 06/12/2024 13:00 EST Appointment [facility] Radiology CT - [address] [phone] documented as of this encounter Visit Diagnoses Not on filedocumented in this encounter Care Teams Personal Assistant Relationship Specialty Start Date End Date Linda Blancas MD [facility] [address] [place] [address] PCP - General 01/06/11 Adolfo Carreno MD [address] [place] [address], [facility] 2 [place] [phone] General Surgery 04/26/19 Augustina Colin MD PhD [address] [place] [address], [facility] 2 [place] [phone] Medical Oncology 04/26/19 documented as of this encounter
--- OUTSIDE RECORDS SUMMARY | 2024-03-20 14:53 | XMS_ITS | Encounter Summary ---
Author Organization [facility] Address [address] [place] [address] Care Team Providers Care Medical Scientific Liaison Name Role Phone Linda Blancas MD Primary Care Provider [phone] Adolfo Carreno MD Unavailable [phone] Augustina Colin MD PhD Unavailable Unavailable Reason for Visit * Reason Onset Date Comments Results 07/02/2021 Encounter Details Date Type Department Care Team (Late st Contact Info) Description 07/02/2021 Telephone [facility] Cancer Center Hematology & Oncology - Main [place] [address] [place], [place] [phone] Augustina Colin, PhD Results Social History Tobacco Use Types [...] encounter Miscellaneous Notes * Telephone Encounter - YanetRadha leija - 07/02/2021 1405 EST LABS ENTERED FROM [facility]. Radha Moser 07/02/2021 14:05 documented in this encounter Plan of Treatment Upcoming Encounters Date Type Department Care Team (Late st Contact Info) Description 04/02/2024 10:30 EDT Appointment [facility] Interventional Radiology Unit [address] [place] [address] [phone] 04/02/2024 15:15 EDT Office Visit [facility] Surgical Oncology - [address] [phone] Adolfo Carreno MD [address] [place] [address] [address] [place] [phone] 04/05/2024 9:30 EDT Telemedicine [facility] - [facility] Palliative Care Services [address] [place] [address] [phone] Chichi Woods MD [address] [place] [address], [address] [phone] 04/11/2024 15:00 EDT Telemedicine [facility] Hematology & Oncology - [address] [phone] Alisson Carreon MD [address] [place] [address] [address] [place] [phone] 04/13/2024 13:30 EDT Appointment [facility] Hematology & Oncology - [address] [phone] 04/13/2024 14:00 EDT Appointment [facility] Hematology & Oncology - [address] [address] 04/16/2024 10:00 EST Telemedicine [facility] - [facility] Palliative Care Services [address] [place] [address] 290201 Chichi Woods MD [address] [place] [phone] 04/24/2024 9:00 EST Appointment [facility] Radiology CT Outpatient - [address] [address] 04/24/2024 11:00 EST Appointment [facility] Breast Imaging - [facility] S [address] [phone] 04/27/2024 12:00 EST Appointment [facility] Hematology & Oncology - [address] [phone] 05/02/2024 15:00 EST Telemedicine [facility] Hematology & Oncology - [address] 612781 Alisson Carreon MD [address] [place] [address], [facility], Level [address] [place] [phone] 05/04/2024 10:15 EST Ancillary Procedure [facility] Cardiology - [address] [place], [place] [phone] 05/04/2024 11:30 EST Appointment [facility] Hematology & Oncology - [address] [phone] 05/04/2024 12:00 EST Appointment [facility] Hematology & Oncology - [facility] [address] [place], [place] 259911 06/12/2024 13:00 EST Appointment [facility] Radiology CT - [facility] [address] [place], [place] 560371 documented as of this encounter Procedures Procedure Name Priority Date/Time Associated Diagnosis Comments COMPLETE BLOOD COUNT AND DIFFERENTIAL Routine 07/01/2021 documented in this encounter Results * (ABNORMAL) COMPLETE BLOOD COUNT AND DIFFERENTIAL (07/01/2021) WBC, External 4.1(A) 4.5 - 11.0 [facility] RBC, External 3.88(A) 4.00 - 5.[address] [facility] Hemoglobin, External 13.[address] [facility] HCT, External 40.4 [facility] MCV, External 104(A) 80 - 100 [facility] MCH, External 34.0 [facility] MCHC, External 32.7 [facility] PLT, External 157 [facility] RDW-CV, External 13.[address] [facility] Neutrophils, External 36.[address] [facility] Lymphocytes, External 54.5(A) 24.0 - 44.[address] [facility] Monocytes, External 7.[address] [facility] Eosinophils, External 1.[address] [facility] Basophils, External 0.[address] [facility] ABS Neutrophils, External 1.48(A) 1.50 - 7.[address] [facility] ABS Lymphs, External 2.[address] [facility] ABS Monocytes, External 0.[address] [facility] ABS Eosinophils, External 0.[address] [facility] ABS Basophils, External 0.[address] [facility] Blood VENOUS BLOOD / Unknown 07/01/2021 Historical Provider PACKAGES & DNA DC OBE ORDERABLES [facility] documented in this encounter Visit Diagnoses Not on filedocumented in this encounter Care Teams Medical Scientific Liaison Relationship Specialty Start Date End Date Linda Blancas MD [facility] [address] [place] [address] PCP - General 01/06/11 Adolfo Carreno MD [address] [place] [address], [facility] [address] [place] [phone] General Surgery 04/26/19 Augustina Colin MD PhD [address] [place] [address], [address] [phone] Medical Oncology 04/26/19 documented as of this encounter
--- OUTSIDE RECORDS SUMMARY | 2024-03-20 14:53 | XMS_ITS | Encounter Summary ---
Author Organization [facility] Address [address] [place] [address] Care Team Providers Care Cell Tuber Hand Name Role Phone Linda Blancas MD Primary Care Provider [phone] Adolfo Carreno MD Unavailable [phone] Augustina Colin MD PhD Unavailable Unavailable Encounter Details Date Type Department Care Team (Latest Contact Info) Description 06/11/2021 9:33 EST - 06/11/2021 23:59 EST Hospital Encounter [facility] Cancer Center Hematology & Oncology - Main [place] [address] [place], [place] [phone] Malignant neoplasm of right female breast, unspecified estrogen receptor status, unspecified site of breast (HCC-CMS) (HCC) (HCC-CMS) (Primary Dx); Metastatic breast cancer (HCC-CMS) (HCC) (HCC-CMS) Discharge [...] Tablets by mouth as needed. 12/07/2023 mv-mn/C/glutamin/lysin /wear521 (AIRBORNE, ASCORBATE SODIUM, ORAL) Take by mouth [...] documented in this encounter Progress Notes * Griselda He RN - 06/11/2021 1100 EST Sendy presents for Faslodex injections. Cycle 17, Day 1 Faslodex 500 mg given in 2 -250 mg IM injections left and right upper outer quadrant gluteal muscles without incident. Band-Aids applied to both sites. She has no questions or concerns. I was supervised by Dr Friedman who was present and immediately available in the office suite. GRISELDA HE RN 06/11/2021 11:15 documented in this encounter Miscellaneous Notes * Addendum Note - Reta Kuhn - 06/11/2021 1100 ESTEncounter addended by: Reta Kuhn on: 06/16/2021 11:02 Actions taken: Charge Capture section accepted documented in this encounter Plan of Treatment Upcoming Encounters Date Type Department Care Team (Late st Contact Info) Description 04/02/2024 10:30 EDT Appointment [facility] Interventional Radiology Unit [address] [place] [address] [phone] 04/02/2024 15:15 EDT Office Visit [facility] Surgical Oncology - [facility] [address] [place], [place] [phone] Adolfo Carreno MD 111 [facility], Level 2 [place] [phone] 04/05/2024 9:30 EDT Telemedicine [facility] - [facility] Palliative Care Services [address] [place], [place] [phone] Chichi Woods MD 111 [facility], [address] [phone] 04/11/2024 15:00 EDT Telemedicine [facility] Hematology & Oncology - [address] 597181 Alisson Carreon MD [address] [place] [address], [facility] 2 [place] [phone] 04/13/2024 13:30 EDT Appointment [facility] Hematology & Oncology - [address] [phone] 04/13/2024 14:00 EDT Appointment [facility] Hematology & Oncology [address] 706241 04/16/2024 10:00 EST Telemedicine [facility] - [facility] Palliative Care Services [address] [place] [address] Chichi Woods MD [address] [place] [phone] 04/24/2024 9:00 EST Appointment [facility] Radiology CT Outpatient - [address] [id number] 04/24/2024 11:00 EST Appointment [facility] Breast Imaging - [facility] S [address] 070511 04/27/2024 12:00 EST Appointment [facility] Hematology & Oncology - [address] 828991 05/02/2024 15:00 EST Telemedicine [facility] Hematology & Oncology [address] 488871 Alisson Carreon MD [address] [place] [address], [facility] 2 [place] [phone] 05/04/2024 10:15 EST Ancillary Procedure [facility] Cardiology - [address] [place], [place] [phone] 05/04/2024 11:30 EST Appointment [facility] Hematology & Oncology - [address] [phone] 05/04/2024 12:00 EST Appointment [facility] Hematology & Oncology [address] [phone] 06/12/2024 13:00 EST Appointment [facility] Radiology CT - [address] [address] documented as of this encounter Procedures Procedure Name Priority Date/Time Associated Diagnosis Comments COMPREHENSIVE METABOLIC PANEL (ONCOLOGY USE ONLY-INC MG) STAT 06/11/2021 10:55 EST Metastatic breast cancer (HCC-CMS) (HCC) (HCC-CMS) CA 27.29 Routine 06/11/2021 10:55 EST Malignant neoplasm of right female breast, unspecified estrogen receptor status, unspecified site of breast (HCC-CMS) (HCC) (HCC-CMS) documented in this encounter Results * (ABNORMAL) CA 27.29 (06/11/2021 10:55 EST) CA 27.29 101.9(H) <38.0 U/mL 06/12/2021 10:16 EST [facility] Comment: NOTE: Serum CA 27.29 concentration should not be interpreted as absolute evidence for the presence or absence of malignant disease. Assayed on Siemens ADVIA Centaur XPT using chemiluminescent technology. ??Values obtained by using different assay methods cannot be used interchangeably. Blood VENOUS BLOOD / Unknown Venipuncture / Unknown 06/11/2021 10:55 EST 06/11/2021 11:19 EST Augustina Colin MD PhD CHEMISTRY & BLOOD GA S ORDERABLES [facility] [address] [place] [address] * (ABNORMAL) COMPREHENSIVE METABOLIC PANEL (ONCOLOGY USE ONLY-INC MG) (06/11/2021 10:55 [facility]) Sodium 140 136 - 145 mmol/L 06/11/2021 11:54 [facility] Potassium 4.7 3.5 - 5.0 mmol/L 06/11/2021 11:54 [facility] Chloride 103 96 - 110 mmol/L 06/11/2021 11:54 [facility] CO2 Total 31 22 - 32 mmol/L 06/11/2021 11:54 [facility] Glucose 82 70 - 100 mg/dL 06/11/2021 11:54 [facility] BUN 26 10 - 26 mg/dL 06/11/2021 11:54 [facility] Creatinine 0.72 0.52 - 1.04 mg/dL 06/11/2021 11:54 [facility] eGFR 92 >60 mL/min/1.7 3m2 06/11/2021 11:54 [facility] Total Protein 7.3 6.3 - 8.2 g/dL 06/11/2021 11:54 [facility] Albumin 4.3 3.4 - 4.9 g/dL 06/11/2021 11:54 [facility] Alkaline Phosphatase 77 38 - 126 U/L 06/11/2021 11:54 [facility] AST 31 15 - 46 U/L 06/11/2021 11:54 [facility] ALT 23 <35 U/L 06/11/2021 11:54 [facility] Bilirubin, Total <0.5 <1.4 mg/dL 06/11/20 11:54 [facility] Calcium 9.9 8.5 - 10.5 mg/dL 06/11/2021 11:54 [facility] Magnesium 2.2 1.7 - 2.8 mg/dL 06/11/2021 11:54 [facility] Albumin/Globulin Ratio 1.4 1.0 - 2.5 06/11/2021 11:54 EST [facility] Anion Gap 6(L) 8 - 16 06/11/2021 11:54 EST [facility] Blood VENOUS BLOOD / Unknown Venipuncture / Unknown 06/11/2021 10:55 EST 06/11/2021 11:19 EST Augustina Colin MD PhD CHEMISTRY & BLOOD GA S ORDERABLES [facility] [address] [place] [address] documented in this encounter Visit Diagnoses Diagnosis Malignant neoplasm of right female breast, unspecified estrogen receptor status, unspecified site of breast (HCC-CMS)- Primary Metastatic breast cancer documented in this encounter Administered Medications Inactive Administered Medications - up to 3 most recent administrations Medication Order MAR Action Action Date Dose Rate Site fulvestrant (FASLODEX) injection 500 mg 500 mg, intramuscular, NOW X1, 1 dose, On Michelle 06/11/21 at 1115, Routine Given 06/11/2021 11:06 EST 500 mg documented in this encounter Orders Appointment Requests Count Last Ordered Date Fi rst Ordered Date ONCBCN INJECTION APPOINTMENT REQUEST 1 05/15 documented in this encounter Care Teams Cell Tuber Hand Relationship Specialty Start Date End Date Linda Blancas MD [facility] [address] [place] [address] PCP - General 01/06/11 Adolfo Carreno MD [address] [place] [phone] General Surgery 04/26/19 Augustina Colin MD PhD [address] [place] [phone] Medical Oncology 04/26/19 documented as of this encounter
--- OUTSIDE RECORDS SUMMARY | 2024-03-20 14:53 | XMS_ITS | Encounter Summary ---
Author Organization [facility] Address [address] [place] [address] Care Team Providers Care Electrician Master Name Role Phone Linda Blancas MD Primary Care Provider [phone] Adolfo Carreno MD Unavailable Augustina Colin MD PhD Unavailable Unavailable Encounter Details Date Type Department Care Team (Late st Contact Info) Description 06/11/2021 Documentation Visit [facility] Cancer Center Hematology & Oncology - [facility] [address] [place] [address] Quita Rob RN Social History Tobacco Use [...] of this encounter Progress Notes * Quita Rob RN - 06/11/2021 1402 EST Lab orders for CBCD and CA27.29 faxed to [facility]. documented in this encounter Plan of Treatment Upcoming Encounters Date Type Department Care Team (Late st Contact Info) Description 04/02/2024 10:30 EDT Appointment [facility] Interventional Radiology Unit [address] [place] [address] [phone] 04/02/2024 15:15 EDT Office Visit [facility] Surgical Oncology - [address] [phone] Adolfo Carreno MD [address] [place] [address] 2 [place] [phone] 04/05/2024 9:30 EDT Telemedicine [facility] - [facility] Palliative Care Services [address] [place], [place] [phone] Chichi Woods MD [address] [place] [address], [address] [phone] 04/11/2024 15:00 EDT Telemedicine [facility] Hematology & Oncology - [address] [phone] Alisson Carreon MD [address] [place] [address] 2 [place] [phone] 04/13/2024 13:30 EDT Appointment [facility] Hematology & Oncology - [address] [phone] 04/13/2024 14:00 EDT Appointment [facility] Hematology & Oncology [address] 112411 04/16/2024 10:00 EST Telemedicine [facility] - [facility] Palliative Care Services [address] [place] [address] 669211 Chichi Woods MD [address] [place] [phone] 04/24/2024 9:00 EST Appointment [facility] Radiology CT Outpatient - [address] [id number] 04/24/2024 11:00 EST Appointment [facility] Breast Imaging - [facility] S [address] [id number] 04/27/2024 12:00 EST Appointment [facility] Hematology & Oncology - [address] [phone] 05/02/2024 15:00 EST Telemedicine [facility] Hematology & Oncology [address] [phone] Alisson Carreon MD [address] [place] [address], [facility] 2 [place] [phone] 05/04/2024 10:15 EST Ancillary Procedure [facility] Cardiology - [place] [address] 05/04/2024 11:30 EST Appointment [facility] Hematology & Oncology [address] 578321 05/04/2024 12:00 EST Appointment [facility] Hematology & Oncology [address] [address] 06/12/2024 13:00 [facility] Radiology CT - [address] [address] documented as of this encounter Visit Diagnoses Not on filedocumented in this encounter Care Teams Electrician Master Relationship Specialty Start Date End Date Linda Blancas MD [facility] [address] [place] [address] PCP - General 01/06/11 Adolfo Carreno MD [address] [place] [address] 2 [place] [phone] General Surgery 04/26/19 Augustina Colin MD PhD [address] [place] [address] 2 [place] [phone] Medical Oncology 04/26/19 documented as of this encounter
--- OUTSIDE RECORDS SUMMARY | 2024-03-20 14:53 | XMS_ITS | Encounter Summary ---
Author Organization [facility] Address [address] [place] [address] Care Team Providers Care Technologies Division Chair Name Role Phone Linda Blancas MD Primary Care Provider [phone] Adolfo Carreno MD Unavailable [phone] Augustina Colin MD PhD Unavailable Unavailable Encounter Details Date Type Department Care Team (Late st Contact Info) Description 06/08/2021 Orders Only [facility] Cancer Center Hematology & Oncology - [facility] [address] [place] [address] Kendra Worthy, [place] Malignant neoplasm of right female breast, unspecified estrogen receptor status, unspecified site of breast (HCC-CMS) (HCC) (HCC-CMS) (Primary Dx); Liver metastasis [...] [facility] Interventional Radiology Unit [address] [place] [address] [phone] 04/02/2024 15:15 EDT Office Visit [facility] Surgical Oncology - [address] [phone] Adolfo Carreno MD [address] [place] [address] 2 [place] [phone] 04/05/2024 9:30 EDT Telemedicine [facility] - [facility] Palliative Care Services [address] [place] [address] [phone] Chichi Woods MD [address] [place] [address], [address] [phone] 04/11/2024 15:00 EDT Telemedicine [facility] Hematology & Oncology [address] [phone] Alisson Carreon MD [address] [place] [address] 2 [place] [phone] 04/13/2024 13:30 EDT Appointment [facility] Hematology & Oncology [address] [address] 04/13/2024 14:00 EDT Appointment [facility] Hematology & Oncology - [address] [address] 04/16/2024 10:00 EST Telemedicine [facility] - [facility] Palliative Care Services [address] [place] [address] Chichi Woosd MD [address] [place] [address], [address] [phone] 04/24/2024 9:00 EST Appointment [facility] Radiology CT Outpatient - [address] 736791 04/24/2024 11:00 EST Appointment [facility] Breast Imaging - [facility] S [address] 391761 04/27/2024 12:00 EST Appointment [facility] Hematology & Oncology - [address] [phone] 05/02/2024 15:00 EST Telemedicine [facility] Hematology & Oncology - [address] 339461 Alisson Carreon MD [address] [place] [address], [facility] 2 [place] [phone] 05/04/2024 10:15 EST Ancillary Procedure [facility] Cardiology - [place] [address] 05/04/2024 11:30 EST Appointment [facility] Hematology & Oncology - [address] [address] 05/04/2024 12:00 EST Appointment [facility] Hematology & Oncology - [address] [phone] 06/12/2024 13:00 [facility] Rad[facility] - [address] [phone] documented as of this encounter Visit Diagnoses Diagnosis Malignant neoplasm of right female breast, unspecified estrogen receptor status, unspecified site of breast (HCC-CMS)- Primary Liver metastasis Secondary malignant neoplasm of liver documented in this encounter Care Teams Technologies Division Chair Relationship Specialty Start Date End Date Linda Blancas MD [address] [place] [address] 30 [place] [address] PCP - General 01/06/11 Adolfo Carreno MD [address] [place] [address] 2 [place] [phone] General Surgery 04/26/19 Augustina Colin MD PhD [address] [place] [address] 2 [place] [phone] Medical Oncology 04/26/19 documented as of this encounter
--- OUTSIDE RECORDS SUMMARY | 2024-03-20 14:53 | XMS_ITS | Encounter Summary ---
Author Organization [facility] Address [address] [place] [address] Care Team Providers Care Blacksmith Helper Name Role Phone Linda Blancas MD Primary Care Provider [phone] Adolfo Carreno MD Unavailable [phone] Augustina Colin MD PhD Unavailable Unavailable Reason for Referral * Radiology Services (Routine/Next Available) - Closed Specialty Diagnoses / Procedures Referred By [facility] Referred To Contact Radiology Diagnoses Malignant neoplasm of right female breast, unspecified estrogen receptor status, unspecified site of breast (HCC-CMS) Liver metastasis Procedures MR ABDOMEN W WO CONTRAST MR ABDOMEN W WO CONTRAST MR ABDOMEN W CONTRAST Augustina Colin MD PhD Referral ID Status Reason Start Date Expiration Date Visits Re quested Visits Authorized [id number] Closed 05/13/2021 11/09/2021 1 1 Reason for Visit * Radiology Services (Routine/Next Available) - Closed Specialty Diagnoses / Procedures Referred By [facility] Referred To Contact Radiology Diagnoses Malignant neoplasm of right female breast, unspecified estrogen receptor status, unspecified site of breast (HCC-CMS) Liver metastasis Procedures MR ABDOMEN W WO CONTRAST MR ABDOMEN W WO CONTRAST MR ABDOMEN W CONTRAST Augustina Colin MD PhD Referral ID Status Reason Start Date Expiration Date Visits Re quested Visits Authorized [id number] Closed 05/13/2021 11/09/2021 1 1 Encounter Details Date Type Department Care Team (Latest Contact Info) Description 06/09/2021 9:43 EST [facility] Rad[facility] MRI - Main [place] [address] [place] [address] Malignant neoplasm of right female breast, unspecified estrogen receptor status, unspecified site of breast (HCC-CMS) (HCC) (HCC-CMS); Liver metastasis (HCC-CMS) (HCC) (HCC-CMS) Discharge Disposition: [...] Tablets by mouth as needed. 12/07/2023 mv-mn/C/glutamin/lysin /[id number] (A[place]ORNE, ASCORBATE SODIUM, ORAL) Take by mouth [...] [facility] [address] [place] [address] [id number] 04/02/2024 15:15 EDT Office Visit [facility] Surgical Oncology - [facility] [address] [place], [place] [phone] Adolfo Carreno MD 111 [facility], Level [address] [place] [phone] 04/05/2024 9:30 EDT Telemedicine [facility] Palliative Care Services [address] [place], [place] [phone] hCichi Woods MD 111 [facility], [address] [phone] 04/11/2024 15:00 EDT Telemedicine [facility] Hematology & Oncology - [address] [id number] Alisson Carreon MD [address] [place] [address], [facility] [address] [place] [phone] 04/13/2024 13:30 EDT Appointment [facility] Hematology & Oncology - [address] [id number] 04/13/2024 14:00 EDT Appointment [facility] Hematology & Oncology [address] [id number] 04/16/2024 10:00 EST Telemedicine Health system - [facility] Palliative Care Services [address] [place] [id number] Chichi Woods MD [address] [place] [address], [address] [phone] 04/24/2024 9:00 EST Appointment [facility] Radiology CT Outpatient - [address] [id number] 04/24/2024 11:00 EST Appointment [facility] Breast Imaging - [address] [id number] 04/27/2024 12:00 EST Appointment [facility] Hematology & Oncology - [address] [id number] 05/02/2024 15:00 EST Telemedicine [facility] Hematology & Oncology - [address] [phone] Alisson Carreon MD [address] [place] [address], [facility] [address] [place] [phone] 05/04/2024 10:15 EST Ancillary Procedure [facility] Cardiology - [address] [place], [place] [phone] 05/04/2024 11:30 EST Appointment [facility] Hematology & Oncology - [address] [phone] 05/04/2024 12:00 EST Appointment [facility] Hematology & Oncology [address] [id number] 06/12/2024 13:00 EST Appointment [facility] Radiology CT - [address] [phone] documented as of this encounter Procedures Procedure Name Priority Date/Time Associated Diagnosis Comments MR ABDOMEN W WO CONTRAST Routine 06/09/2021 11:52 EST Malignant neoplasm of right female breast, unspecified estrogen receptor status, unspecified site of breast (HCC-CMS) (HCC) (HCC-CMS) Liver metastasis (HCC-CMS) (HCC) (HCC-CMS) documented in this encounter Results * MR ABDOMEN W WO CONTRAST (06/09/2021 11:52 EST) Anatomical Region Laterality Modality Body, Abdomen Magnetic Resonan ce 06/09/2021 13:4 3 EST Impressions 06/09/2021 13:43 EST Mild increase in size of known hepatic metastases with several additional new subcentimeter lesions. Narrative 06/09/2021 13:43 EST MR ABDOMEN W WO CONTRAST ??06/09/2021 11:45 AM Signs and Symptoms/Comments: ?? breast cancer with liver mets; Liver disease, chronic, HCC screening Technique: Tp-gpq-zad-of-phase, T2-weighted, diffusion weighted images were followed by dynamic gadolinium enhanced T1 fat-suppressed gradient echo images of the abdomen. Subtraction imaging performed. Comparison: MRI abdomen 03/02/2021 Findings: Lower chest: For findings in the lung bases, please see the separate CT chest report performed on the same date. Hepatobiliary: Multiple mildly T2 hyperintense hypoenhancing lesions are again noted, best visualized on the B400 series 703. The lesion near the hepatic dome on image 104 measures 9 mm, previously 6 mm. The lesion in the left hepatic lobe on image 188 measures 13 mm, previously 12 mm. Other lesions show similar mild increase in size. However, there are also several additional subcentimeter lesions which are new, example lesion in segment 4 on image 176 measuring 7 mm. Gallbladder and bile ducts unremarkable. Spleen, pancreas, adrenal glands: Normal Kidneys, proximal ureters: Scattered tiny renal cysts. No hydronephrosis Bowel: No dilated bowel to suggest obstruction. Peritoneal cavity: No free fluid in the abdomen Lymphovascular: No lymphadenopathy. Abdominal aorta normal in caliber Abdominal wall: Unremarkable Musculoskeletal: Degenerative changes in the lumbar spine with posterior spinal fusion hardware noted at the lower lumbar spine. Localizer: No additional findings Procedure Note Kaylyn Nix MD - 06/09/2021 MR ABDOMEN W WO CONTRAST 06/09/2021 11:45 AM Signs and Symptoms/Comments: breast cancer with liver mets; Liver disease, chronic, HCC screening Technique: Zg-mbg-ruo-of-phase, T2-weighted, diffusion weighted images were followedby dynamic gadolinium enhanced T1 fat-suppressed gradient echo images ofthe abdomen. Subtraction imaging performed. Comparison: MRI abdomen 03/02/2021 Findings: Lower chest: For findings in the lung bases, please see the separate CTchest report performed on the same date. Hepatobiliary: Multiple mildly T2 hyperintense hypoenhancing lesions areagain noted, best visualized on the B400 series 703. The lesion near thehepatic dome on image 104 measures 9 mm, previously 6 mm. The lesion inthe left hepatic lobe on image 188 measures 13 mm, previously 12 mm. Otherlesions show similar mild increase in size. However, there are alsoseveral additional subcentimeter lesions which are new, example lesion insegment 4 on image 176 measuring 7 mm. Gallbladder and bile ductsunremarkable. Spleen, pancreas, adrenal glands: Normal Kidneys, proximal ureters: Scattered tiny renal cysts. No hydronephrosis Bowel: No dilated bowel to suggest obstruction. Peritoneal cavity: No free fluid in the abdomen Lymphovascular: No lymphadenopathy. Abdominal aorta normal in caliber Abdominal wall: Unremarkable Musculoskeletal: Degenerative changes in the lumbar spine with posteriorspinal fusion hardware noted at the lower lumbar spine. Localizer: No additional findings IMPRESSION Mild increase in size of known hepatic metastases with several additionalnew subcentimeter lesions. Augustina Colin MD PhD IMG MRI ORDERABLES [...] Once in imaging, 1 dose, Starting on Tue06/09/21 at 1153, Until Tue06/09/21 at 1153, Routine, Imaging Protocol Orders Given 06/09/2021 11:53 EST 12 mL documented in this encounter Care Teams Blacksmith Helper Relationship Specialty Start Date End Date Linda Blancas MD [facility] [address] [place] [address] PCP - General 01/06/11 Adolfo Carreno MD [address] [place] [address] 2 [place] [address] General Surgery 04/26/19 Augustina Colin MD PhD [address] [place] [address] 2 [place] [phone] Medical Oncology 04/26/19 documented as of this encounter
--- OUTSIDE RECORDS SUMMARY | 2024-03-20 14:53 | XMS_ITS | Encounter Summary ---
Author Organization [facility] Address [address] [place] [address] Care Team Providers Care Surveillance Supervisor Name Role Phone Linda Blancas MD Primary Care Provider [phone] Adolfo Carreno MD Unavailable [phone] Augustina Colin MD PhD Unavailable Unavailable Encounter Details Date Type Department Care Team (Latest Contact Info) Description 06/11/2021 9:30 EST Phlebotomy Only [facility] Hematology & Oncology - Main [place] [address] [place] [address] Blood Doctor, [facility] Hem Onc Metastatic breast cancer (HCC-CMS) (HCC) [...] Progress Notes * Sheri Chandler MA - 06/11/2021 0930 EST Venipuncture performed for Dittus Per orders of Dittus Number of attempts 1 Right AC I was supervised by Elder who was present and immediately available in the office suite. SHERI CHANDLER MA 06/11/2021 9:54 documented in this encounter Plan of Treatment Upcoming Encounters Date Type Department Care Team (Late st Contact Info) Description 04/02/2024 10:30 EDT Appointment [facility] Interventional Radiology Unit [address] [place] [address] [id number] 04/02/2024 15:15 EDT Office Visit [facility] Surgical Oncology - [address] [phone] Adolfo Carreno MD 111 [facility], [facility] [address] [place] [phone] 04/05/2024 9:30 EDT Telemedicine [facility] - [facility] Palliative Care Services [address] [place], [place] 4[address] Chichi Woods MD [address] [place] [phone] 04/11/2024 15:00 EDT Telemedicine [facility] Hematology & Oncology - [address] [phone] Alisson Carreon MD 111 [facility], [facility] [address] [place] [phone] 04/13/2024 13:30 EDT Appointment [facility] Hematology & Oncology - [address] [phone] 04/13/2024 14:00 EDT Appointment [facility] Hematology & Oncology - [address] [phone] 04/16/2024 10:00 EST Telemedicine [facility] - [facility] Palliative Care Services [address] [place] [address] [phone] Chichi Woods MD [address] [place] [address], [address] [phone] 04/24/2024 9:00 EST Appointment [facility] Radiology CT Outpatient - [address] [id number] 04/24/2024 11:00 EST Appointment [facility] Breast Imaging - [facility] [address] [phone] 04/27/2024 12:00 EST Appointment [facility] Hematology & Oncology - [address] [phone] 05/02/2024 15:00 EST Telemedicine [facility] Hematology & Oncology - [address] [phone] Alisson Carreon MD [address] [place] [address], [address] [place] [phone] 05/04/2024 10:15 EST Ancillary Procedure [facility] Cardiology - [address] [place], [place] [phone] 05/04/2024 11:30 EST Appointment [facility] Hematology & Oncology - [address] [phone] 05/04/2024 12:00 EST Appointment [facility] Hematology & Oncology [address] [address] 06/12/2024 13:00 EST Appointment [facility] Radiology CT - [address] [phone] documented as of this encounter Procedures Procedure Name Priority Date/Time Associated Diagnosis Comments COMPLETE BLOOD COUNT AND DIFFERENTIAL STAT 06/11/2021 9:54 EST Metastatic breast cancer (HCC-CMS) (HCC) (HCC-CMS) documented in this encounter Results * (ABNORMAL) COMPLETE BLOOD COUNT AND DIFFERENTIAL (06/11/2021 9:54 EST) WBC 7.88 4.00 - 12.40 K/cmm 06/11/2021 10:14 [facility] RBC 4.01 3.86 - 5.04 M/cmm 06/11/2021 10:14 [facility] Hemoglobin 13.4 11.6 - 15.2 gm/dL 06/11/2021 10:14 [facility] HCT 40.5 34.9 - 44.4 % 06/11/2021 10:14 [facility] MCV 101(H) 81 - 98 fl 06/11/2021 10:14 [facility] MCH 33.4(H) 26.7 - 33.3 pg 06/11/2021 10:14 [facility] MCHC 33.1 32.1 - 35.9 gm/dL 06/11/2021 10:14 [facility] RDW-CV 13.4 <14.7 % 06/11/2021 10:14 [facility] RDW-SD 50.2 <50.4 fl 06/11/2021 10:14 [facility] PLT 231 141 - 377 K/cmm 06/11/2021 10:14 [facility] MPV 10.2 9.5 - 12.7 fl 06/11/2021 10:14 [facility] % Neutrophils 54.1 % 06/11/2021 10:14 [facility] % Lymphocytes 32.7 % 06/11/2021 10:14 [facility] % Monocytes 7.7 % 06/11/2021 10:14 [facility] % Eosinophils 4.3 % 06/11/2021 10:14 [facility] % Basophils 0.9 % 06/11/2021 10:14 [facility] % Immature Grans 0.3 % 06/11/20 10:14 [facility] Absolute Neutrophils 4.26 2.20 - 8.85 K/cmm 06/11/2021 10:14 [facility] Absolute Lymphocytes 2.58 1.09 - 3.30 K/cmm 06/11/2021 10:14 [facility] Absolute Monocytes 0.61 0.10 - 0.80 K/cmm 06/11/2021 10:14 [facility] Absolute Eosinophils 0.34 0.03 - 0.61 K/cmm 06/11/2021 10:14 [facility] ABS Basophils 0.07 0.01 - 0.11 K/cmm 06/11/2021 10:14 [facility] Absolute Immature Grans 0.02 0.00 - 0.06 K/cmm 06/11/2021 10:14 [facility] Type of Differential: Auto 06/11/2021 10:14 [facility] Blood VENOUS BLOOD / Unknown Venipuncture / Unknown 06/11/2021 9:54 EST 06/11/2021 9:58 EST Augustina Colin MD PhD PACKAGES & DNA PROBE ORDERABLES [facility] [address] [place] [address] documented in this encounter Visit Diagnoses Diagnosis Metastatic breast cancer- Primary documented in this encounter Care Teams Surveillance Supervisor Relationship Specialty Start Date End Date Linda Blancas MD [address] [place] [address] PCP - General 01/06/11 Adolfo Carreno MD [address] [place] [address] [address] [place] [phone] General Surgery 04/26/19 Augustina Colin MD PhD [address] [place] [address], [address] [phone] Medical Oncology 04/26/19 documented as of this encounter
--- OUTSIDE RECORDS SUMMARY | 2024-03-20 14:53 | XMS_ITS | Encounter Summary ---
Author Organization [facility] Address [address] [place] [address] Care Team Providers Care Wilton Weaver Name Role Phone Linda Blancas MD Primary Care Provider [phone] Adolfo Carreno MD Unavailable [phone] Augustina Colin MD PhD Unavailable Unavailable Reason for Visit * Reason Comments Well Woman Exam hx breast cancer, pr emature ovarian failure Encounter Details Date Type Department Care Team (Late st Contact Info) Description 05/26/2021 14:00 EST Office Visit [facility] OBGYN Services - [address] [id number] Quita Babb PA-C 111 [facility], Level 2 [place] [phone] Encounter for gynecological examination without abnormal finding [...] Sign Reading Time Taken Comments Blood Pressure 136/78 05/26/2021 1400 EST Pulse - - Temperature - - Respiratory Rate - - Oxygen Saturation - - Inhaled Oxygen Concentration - - Weight 62.4 kg (137 lb 9.6 oz) 05/26/[address] Height - - Body Mass Index 25.91 05/14/2021 1238 EST documented in this encounter [...] Progress Notes * Quita Babb PA-C - 05/26/2021 1400 EST Subjective: Patient ID: Sunshine Pleitez is an 60 y.o. female. Chief Complaint Patient presents with ??? Well Woman Exam hx breast cancer, premature ovarian failure Gynecologic Exam Chief complaint: Annual gynecologic exam HPI: Sunshine Pleitez is a 60 y.o. woman who presents today for a yearly exam, last seen in 03/2019 for an annual recovery coordinator exam. Sendy continues to undergo treatment for [...] with Dr. Colin, and is currently on Ibrance. ?? Prior to her breast cancer history, she [...] of STD: no, stable relationship Vaginal complaints: None today, not frequently SA due to 's medical conditions, but no significant dryness or dyspareunia. Bladder complaints: none Bowel complaints: none Other complaints: none Other concerns: none Hot flashes better than in the past. She is scheduled to have surgery on her foot at [facility] tomorrow. She was hospitalized in June in [facility] with covid. She was helping to care for her brother who was s/p a liver transplant and diagnosed with covid, when she herself was diagnosed as well. Hospitalized for 10 days, but was not on a ventilator. Health Maintenance Mammogram:Followed regularly by Dr. Carreno for history of breast cancer. Colonoscopy: utd Cholesterol screening: utd through her pcp DEXA: followed by medical oncology Immunizations: Tetanus: utd Gardasil NA Social history: reports that she has never smoked. She has never used smokeless tobacco. The patient states she drinks rarely per week. Employment history/work hazards: Remains on disability. Her is retiring this spring. They recently acquired a Kyle ilsa Capevo puppy. Exercise: active Calcium:diet and supplement Vitamin D: diet [...] [place] no complications ??? 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 CARPAL TUNNEL RELEASE 200705/07/2019 beir block - no complications ??? LIPOMA RESECTION 2001 05/07/2019 [place] no complications ??? MASTECTOMY Right ??? NE INSJ/RPLCMT BREAST IMPLANT Feb MASTECTOMY Bilateral 05/30/2019 Exchange right tissue fork lift truck operator to silicone implant, exchange of left implant [...] to Visit Medication Sig Dispense Refill ??? acetaminophen (TYLENOL) 325 mg tablet Take 2 tablets by mouth every 4 hours as needed for Pain.(Patient not taking: Reported on 05/26/2021) ??? calcium-vitamin D (OS-CHAR D) 500 mg(1,250mg) [...] 600 mg qhs) 360 Cap 3 ??? HYDROmorphone (DILAUDID) 2 mg tablet Take 1 Tab by mouth every 4 hours as needed for Pain. Daily Max: 12 mg (Patient not taking: Reported on 09/16/2020) 10 Tab 0 ??? ibuprofen (MOTRIN) 200 mg tablet Take 400 mg by mouth as needed. ??? MULTIVITS W-CA,FE,OTHER MIN (WOMEN'S DAILY FORMULA ORAL) Take by mouth daily. ??? mv-mn/C/glutamin/lysin/sctn923 (AIRBORNE, ASCORBATE SODIUM, ORAL) Take by mouth as needed. ??? omeprazole (PRILOSEC) 20 mg capsule Take 20 mg by mouth daily. ??? palbociclib 100 mg capsule Take 100 mg by mouth daily. Take 100 mg daily days 1-21 and then 7 days off. Total cycle length 28 days before restarting. 21 capsule 3 ??? RED YEAST RICE EXTRACT ORAL Take 1,200 mg by mouth daily. 600mg 2x a day ??? valACYclovir (VALTREX) 500 mg tablet Take 1 Tab by mouth daily. 90 Tab 3 ??? venlafaxine (EFFEXOR-XR) 150 mg XR capsule Take 1 Cap by mouth daily. 90 Cap 3 ??? zolpidem (AMBIEN) 5 mg tablet Take 5 mg by mouth at bedtime as needed for Sleep. Reported on 11/01/2016 No current facility-administered medications on file prior [...] Psychiatric/Behavioral: Negative. - See HPI Objective: BP 136/78 (BP Cuff Location: Left arm, BP Patient Position: Sitting, BP Cuff Sizes: Adult, regular) Wt 62.4 kg (137 lb 9.6 oz) BMI 25.91 kg/m?? Physical Exam Constitutional: She is oriented [...] normal. Judgment and thought contentnormal. Assessment: Annual recovery coordinator exam, no gynecologic concerns today. Currently in treatment for metastatic breast cancer. Plan: There are no diagnoses linked to this encounter. Pap deferred, now on routine screening schedule, q 5 years, per current asccp guidelines, next due in 2013. Ongoing follow up with medical oncology for treatment of metastatic breast cancer. Calcium, vitamin D for bone density protection. Return to office in 1 year, sooner PRN. TANK Felipe documented in this encounter Plan of Treatment Upcoming Encounters Date Type Department Care Team (Late st Contact Info) Description 04/02/2024 10:30 EDT Appointment [facility] Interventional Radiology Unit [address] [place] [address] [phone] 04/02/2024 15:15 EDT Office Visit [facility] Surgical Oncology - [address] [phone] Adolfo Carreno MD [address] [place] [address] [phone] 04/05/2024 9:30 EDT Telemedicine [facility] Palliative Care Services [address] [place] [address] [phone] Chichi Woods MD [address] [place] [address] [phone] 04/11/2024 15:00 EDT Telemedicine [facility] Hematology & Oncology - [address] [address] Alisson Carreon MD [address] [place] [address] [phone] 04/13/2024 13:30 EDT Appointment [facility] Hematology & Oncology - [address] [phone] 04/13/2024 14:00 EDT Appointment [facility] Hematology & Oncology - [address] [address] 04/16/2024 10:00 EST Telemedicine [facility] Palliative Care Services [address] [place] [address] [phone] Chichi Woods MD [address] [place] [address] [phone] 04/24/2024 9:00 EST Appointment [facility] Radiology CT Outpatient - [address] [address] 04/24/2024 11:00 EST Appointment [facility] Breast Imaging - [facility] [address] [place] [address] 04/27/2024 12:00 EST Appointment [facility] Hematology & Oncology - [address] [address] 05/02/2024 15:00 EST Telemedicine [facility] Hematology & Oncology [address] [address] Alisson Carreon MD [address] [place] [address], Level 2 [place] [phone] 05/04/2024 10:15 EST Ancillary Procedure [facility] Cardiology - [place] [address] 05/04/2024 11:30 EST Appointment [facility] Hematology & Oncology [address] 097001 05/04/2024 12:00 EST Appointment [facility] Hematology & Oncology [address] 934291 06/12/2024 13:00 EST Appointment [facility] Radiology CT - [address] [phone] documented as of this encounter Visit Diagnoses Diagnosis Encounter for gynecological examination without abnormal finding- Primary Routine gynecological examination documented in this encounter Discontinued Medications Medication Sig Discontinue Reason Start Date End Da te HYDROmorphone (DILAUDID) 2 mg tablet Take 1 Tab by mouth every 4 hours as needed for Pain. Daily Max: 12 mg Therapy completed 09/08/2020 05/26/2021 acetaminophen (TYLENOL) 325 mg tablet Take 2 tablets by mouth every 4 hours as needed for Pain. Therapy completed 08/30/2018 05/26/2021 documented as of this encounter Care Teams Wilton Weaver Relationship Specialty Start Date End Date Linda Blnacas MD [facility] [address] [place] [address] PCP - General 01/06/11 Adolfo Carreno MD [address] [place] [address] [phone] General Surgery 04/26/19 Augustina Colin MD PhD [address] [place] [phone] Medical Oncology 04/26/19 documented as of this encounter
--- OUTSIDE RECORDS SUMMARY | 2024-03-20 14:53 | XMS_ITS | Encounter Summary ---
Author Organization [facility] Address [address] [place] [address] Care Team Providers Care Environmental Services Technician Name Role Phone Linda Blancas MD Primary Care Provider [phone] Adolfo Carreno MD Unavailable [phone] Augustina Colin MD PhD Unavailable Unavailable Reason for Referral * Radiology Services (Routine/Next Available) - Authorization Not Required Specialty Diagnoses / Procedures Referred By Contac t Referred To Contact Nuclear Medicine Diagnoses Malignant neoplasm of right female breast, unspecified estrogen receptor status, unspecified site of breast ([facility]) Procedures NM BONE WHOLE BODY Augustina Colin MD PhD Referral ID Status Reason Start Date Expiration Date Visits Requested Visits Authorized [id number] Authorization Not Required 03/19/2021 1 1 Reason for Visit * Radiology Services (Routine/Next Available) - Authorization Not Required Specialty Diagnoses / Procedures Referred By Contac t Referred To Contact Nuclear Medicine Diagnoses Malignant neoplasm of right female breast, unspecified estrogen receptor status, unspecified site of breast ([facility]) Procedures NM BONE WHOLE BODY Augustnia Colin MD PhD Referral ID Status Reason Start Date Expiration Date Visits Requested Visits Authorized [id number] Authorization Not Required 03/19/2021 1 1 Encounter Details Date Type Department Care Team (Latest Contact Info) Description 06/09/2021 9:42 EST Hospital Encounter [facility] Radiology Nuclear Medicine and PET - [facility] [address] [place], [place] [id number] Malignant neoplasm of right female breast, unspecified estrogen receptor status, unspecified site of breast ([facility]) ([facility]) ([facility]) Discharge Disposition: Home or Self Care [...] Tablets by mouth as needed. 12/07/2023 mv-mn/C/glutamin/lysin /ymyx840 (AIRBORNE, ASCORBATE SODIUM, ORAL) Take by mouth [...] Info) Description 04/02/2024 10:30 EDT Appointment [facility] Interventional Radiology Unit [address] [place], [place] 6[address]191 04/02/2024 15:15 EDT Office Visit [facility] Surgical Oncology - [address] [phone] Adolfo Carreno MD 111 [facility], Level 2 [place] [phone] 04/05/2024 9:30 EDT Telemedicine [facility] - [facility] Palliative Care Services [address] [place], [place] [phone] Chichi Woods MD 111 [facility], [address] [phone] 04/11/2024 15:00 EDT Telemedicine [facility] Hematology & Oncology - [facility] [address] [place], [place] [phone] Alisson Carreon MD [address] [place] [address], [facility] [address] [place] [phone] 04/13/2024 13:30 EDT Appointment [facility] Hematology & Oncology - [address] 786301 04/13/2024 14:00 EDT Appointment [facility] Hematology & Oncology - [address] [id number] 04/16/2024 10:00 EST Telemedicine [facility] - [facility] Palliative Care Services [address] [place] [address] [phone] Chichi Woods MD [address] [place] [address], [address] [phone] 04/24/2024 9:00 EST Appointment [facility] Radiology CT Outpatient - [address] [id number] 04/24/2024 11:00 EST Appointment [facility] Breast Imaging - [facility] S [address] 729451 04/27/2024 12:00 EST Appointment [facility] Hematology & Oncology - [address] [phone] 05/02/2024 15:00 EST Telemedicine [facility] Hematology & Oncology - [address] [phone] Alisson Carreon MD [address] [place] [address], [facility] [address] [place] [phone] 05/04/2024 10:15 EST Ancillary Procedure [facility] Cardiology - [address] [place], [place] [phone] 05/04/2024 11:30 EST Appointment [facility] Hematology & Oncology - [address] [address] 05/04/2024 12:00 EST Appointment [facility] Hematology & Oncology [address] [address] 06/12/2024 13:00 EST Appointment [facility] Radiology CT - [address] [address] documented as of this encounter Procedures Procedure [...] radiopharm IV, NOW X1, 1 dose, On 06/09/21 at 1045, Routine, Imaging Protocol Orders Given 06/09/2021 10:20 EST 18.8 millicuries documented in this encounter Care Teams Environmental Services Technician Relationship Specialty Start Date End Date Linda Blancas MD [facility] [address] [place] [address] PCP - General 01/06/11 Adolfo Carreno MD [address] [place] [address] [address] [place] [phone] General Surgery 04/26/19 Augustina Colin MD PhD [address] [place] [address], [facility] [address] [place] [phone] Medical Oncology 04/26/19 documented as of this encounter
--- OUTSIDE RECORDS SUMMARY | 2024-03-20 14:53 | XMS_ITS | Encounter Summary ---
Author Organization [facility] Address [address] [place] [address] Care Team Providers Care Congregational Care Pastor Name Role Phone Linda Blancas MD Primary Care Provider [phone] Adolfo Carreno MD Unavailable [phone] Augustina Colin MD PhD Unavailable Unavailable Encounter Details Date Type Department Care Team (Late st Contact Info) Description 05/01/2021 Specialty Pharmacy [facility] - [facility] [address] [place], [place] 204781 Allen Day, [facility] Social History Tobacco Use [...] EDT Appointment [facility] Interventional Radiology Unit [address] [place] [phone] 04/02/2024 15:15 EDT Office Visit [facility] Surgical Oncology - [address] [phone] Adolfo Carreno MD [address] [place] [phone] 04/05/2024 9:30 EDT Telemedicine [facility] - [facility] Palliative Care Services [address] [place] [address] [phone] Chichi Woods MD [address] [place] [phone] 04/11/2024 15:00 EDT Telemedicine [facility] Hematology & Oncology [address] [phone] Alisson Carreon MD [address] [place] [phone] 04/13/2024 13:30 EDT Appointment [facility] Hematology & Oncology [address] [phone] 04/13/2024 14:00 EDT Appointment [facility] Hematology & Oncology [address] [phone] 04/16/2024 10:00 EST Telemedicine [facility] - [facility] Palliative Care Services [address] [place] [address] [phone] Chichi Woods MD [address] [place] [address], [address] [place] [phone] 04/24/2024 9:00 EST Appointment [facility] Radiology CT Outpatient - [address] [phone] 04/24/2024 11:00 EST Appointment [facility] Breast Imaging - [facility] [address] [place], [place] 763551 04/27/2024 12:00 EST Appointment [facility] Hematology & Oncology - [address] [phone] 05/02/2024 15:00 EST Telemedicine [facility] Hematology & Oncology - [address] [phone] Alisson Carreon MD [address] [place] [address], [address] [place] [phone] 05/04/2024 10:15 EST Ancillary Procedure [facility] Cardiology - [address] [place], [place] [phone] 05/04/2024 11:30 EST Appointment [facility] Hematology & Oncology - [address] [phone] 05/04/2024 12:00 EST Appointment [facility] Hematology & Oncology [address] [phone] 06/12/2024 13:00 EST Appointment [facility] Radiology CT - [address] [phone] documented as of this encounter Visit Diagnoses Not on filedocumented in this encounter Care Teams Congregational Care Pastor Relationship Specialty Start Date End Date Linda Blancas MD [facility] [address] [place] [address] PCP - General 01/06/11 Adolfo Carreno MD [address] [place] [address], [facility] [address] [place] [phone] General Surgery 04/26/19 Augustina Colin MD PhD [address] [place] [address], [address] [phone] Medical Oncology 04/26/19 documented as of this encounter
--- OUTSIDE RECORDS SUMMARY | 2024-03-20 14:53 | XMS_ITS | Encounter Summary ---
Author Organization [facility] Address [address] [place] [address] Care Team Providers Care Senior Information Security Engineer Name Role Phone Linda Blancas MD Primary Care Provider [phone] Adolfo Carreno MD Unavailable [phone] Augustina Colin MD PhD Unavailable Unavailable Encounter Details Date Type Department Care Team (Latest Contact Info) Description 05/14/2021 12:30 EST Phlebotomy Only [facility] Hematology & Oncology - Main [place] [address] [place] [address] Blood Doctor, [facility] Hem Onc Metastatic breast cancer (HCC-CMS) (HCC) [...] as of this encounter Progress Notes * Eric James MA - 05/14/2021 1230 EST Venipuncture performed for Dittus Per orders of Dittus Number of attempts 1 on RBV by MP I was supervised by Malcolm who was present and immediately available in the office suite. ERIC JAMES MA 05/14/2021 12:36 documented in this encounter Plan of Treatment Upcoming Encounters Date Type Department Care Team (Late st Contact Info) Description 04/02/2024 10:30 EDT Appointment [facility] Interventional Radiology Unit [address] [place] [address] [phone] 04/02/2024 15:15 EDT Office Visit [facility] Surgical Oncology - [address] [phone] Adolfo Carreno MD 111 [facility], [facility] 2 [place] [phone] 04/05/2024 9:30 EDT Telemedicine [facility] - [facility] Palliative Care Services [address], [place] 176241 Chichi Woods MD [address] [place] [phone] 04/11/2024 15:00 EDT Telemedicine [facility] Hematology & Oncology - [facility] [address], [place] 855951 Alisson Carreon MD 111 [facility], [facility] 2 [place] [phone] 04/13/2024 13:30 EDT Appointment [facility] Hematology & Oncology - [address] [phone] 04/13/2024 14:00 EDT Appointment [facility] Hematology & Oncology - [address] [phone] 04/16/2024 10:00 EST Telemedicine [facility] - [facility] [address] [place] [address] [phone] Chichi Woods MD [address] [place] [address], [address] [phone] 04/24/2024 9:00 EST Appointment [facility] Radiology CT Outpatient - [address] [phone] 04/24/2024 11:00 EST Appointment [facility] Breast Imaging - [facility] S [address] [place] [address] 147481 04/27/2024 12:00 EST Appointment [facility] Hematology & Oncology - [address] [phone] 05/02/2024 15:00 EST Telemedicine [facility] Hematology & Oncology - [address] 920841 Alisson Carreon MD [address] [place] [address], Level [address] [place] [phone] 05/04/2024 10:15 EST Ancillary Procedure [facility] Cardiology - [address] [place], [place] [phone] 05/04/2024 11:30 EST Appointment [facility] Hematology & Oncology - [address] [address] 05/04/2024 12:00 EST Appointment [facility] Hematology & Oncology - [address] [address] 06/12/2024 13:00 EST Appointment [facility] Radiology CT - [address] [address] documented as of this encounter Procedures Procedure Name Priority Date/Time Associated Diagnosis Comments COMPREHENSIVE METABOLIC PANEL (ONCOLOGY USE ONLY-INC MG) STAT 05/14/2021 12:43 EST Metastatic breast cancer (HCC-CMS) (HCC) (HCC-CMS) COMPLETE BLOOD COUNT AND DIFFERENTIAL STAT 05/14/2021 12:43 EST Metastatic breast cancer (HCC-CMS) (HCC) (HCC-CMS) documented in this encounter Results * (ABNORMAL) COMPLETE BLOOD COUNT AND DIFFERENTIAL (05/14/2021 12:43 EST) WBC 6.33 4.00 - 12.40 K/cmm 05/14/2021 13:02 [facility] RBC 3.72(L) 3.86 - 5.04 M/cmm 05/14/2021 13:02 [facility] Hemoglobin 12.5 11.6 - 15.2 gm/dL 05/14/2021 13:02 [facility] HCT 36.1 34.9 - 44.4 % 05/14/2021 13:02 [facility] MCV 97 81 - 98 fl 05/14/2021 13:02 [facility] MCH 33.6(H) 26.7 - 33.3 pg 05/14/2021 13:02 [facility] MCHC 34.6 32.1 - 35.9 gm/dL 05/14/2021 13:02 [facility] RDW-CV 14.4 <14.7 % 05/14/2021 13:02 [facility] RDW-SD 50.3 <50.4 fl 05/14/2021 13:02 [facility] PLT 341 141 - 377 K/cmm 05/14/2021 13:02 [facility] MPV 9.1(L) 9.5 - 12.7 fl 05/14/2021 13:02 [facility] % Neutrophils 44.9 % 05/14/2021 13:02 [facility] % Lymphocytes 40.4 % 05/14/2021 13:02 [facility] % Monocytes 12.6 % 05/14/2021 13:02 [facility] % Eosinophils 0.5 % 05/14/2021 13:02 [facility] % Basophils 1.3 % 05/14/2021 13:02 [facility] % Immature Grans 0.3 % 05/14/20 13:02 [facility] Absolute Neutrophils 2.84 2.20 - 8.85 K/cmm 05/14/2021 13:02 [facility] Absolute Lymphocytes 2.56 1.09 - 3.30 K/cmm 05/14/2021 13:02 [facility] Absolute Monocytes 0.80 0.10 - 0.80 K/cmm 05/14/2021 13:02 [facility] Absolute Eosinophils 0.03 0.03 - 0.61 K/cmm 05/14/2021 13:02 [facility] ABS Basophils 0.08 0.01 - 0.11 K/cmm 05/14/2021 13:02 [facility] Absolute Immature Grans 0.02 0.00 - 0.06 K/cmm 05/14/2021 13:02 [facility] Type of Differential: Auto 05/14/2021 13:02 [facility] Blood VENOUS BLOOD / Unknown Venipuncture / Unknown 05/14/2021 12:43 EST 05/14/2021 12:45 EST Augustina Colin MD PhD PACKAGES & DNA PROBE ORDERABLES [facility] [address] [place] [address] * (ABNORMAL) COMPREHENSIVE METABOLIC PANEL (ONCOLOGY USE ONLY-INC MG) (05/14/2021 12:43 [facility]) Sodium 140 136 - 145 mmol/L 05/14/2021 13:11 [facility] Potassium 4.6 3.5 - 5.0 mmol/L 05/14/2021 13:11 [facility] Chloride 107 96 - 110 mmol/L 05/14/2021 13:11 [facility] CO2 Total 28 22 - 32 mmol/L 05/14/2021 13:11 [facility] Glucose 75 70 - 100 mg/dL 05/14/2021 13:11 [facility] BUN 17 10 - 26 mg/dL 05/14/2021 13:11 [facility] Creatinine 0.74 0.52 - 1.04 mg/dL 05/14/2021 13:11 [facility] eGFR 89 >60 mL/min/1.7 3m2 05/14/2021 13:11 [facility] Total Protein 7.1 6.3 - 8.2 g/dL 05/14/2021 13:11 [facility] Albumin 4.2 3.4 - 4.9 g/dL 05/14/2021 13:11 [facility] Alkaline Phosphatase 86 38 - 126 U/L 05/14/2021 13:11 [facility] AST 31 15 - 46 U/L 05/14/2021 13:11 [facility] ALT 19 <35 U/L 05/14/2021 13:11 [facility] Bilirubin, Total <0.5 <1.4 mg/dL 05/14/20 13:11 [facility] Calcium 9.4 8.5 - 10.5 mg/dL 05/14/2021 13:11 [facility] Magnesium 2.2 1.7 - 2.8 mg/dL 05/14/2021 13:11 [facility] Albumin/Globulin Ratio 1.4 1.0 - 2.5 05/14/2021 13:11 EST [facility] Anion Gap 5(L) 8 - 16 05/14/2021 13:11 EST [facility] Blood VENOUS BLOOD / Unknown Venipuncture / Unknown 05/14/2021 12:43 EST 05/14/2021 12:45 EST Augustina Colin MD PhD CHEMISTRY & BLOOD GA S ORDERABLES [facility] [address] [place] [address] documented in this encounter Visit Diagnoses Diagnosis Metastatic breast cancer- Primary documented in this encounter Care Teams Senior Information Security Engineer Relationship Specialty Start Date End Date Linda Blancas MD [facility] [address] [place] [address] PCP - General 01/06/11 Adolfo Carreno MD [address] [place] [phone] General Surgery 04/26/19 Augustina Colin MD PhD [address] [place] [phone] Medical Oncology 04/26/19 documented as of this encounter
--- OUTSIDE RECORDS SUMMARY | 2024-03-20 14:53 | XMS_ITS | Encounter Summary ---
Author Organization [facility] Address [address] [place] [address] Care Team Providers Care Generator Switchboard Operator Name Role Phone Linda Blancas MD Primary Care Provider [phone] Adolfo Crareno MD Unavailable [phone] Augustina Colin MD PhD Unavailable Unavailable Reason for Referral * Radiology Services (Routine/Next Available) - Closed Specialty Diagnoses / Procedures [facility] To Contact Diagnoses Malignant neoplasm of right female breast, unspecified estrogen receptor status, unspecified site of breast ([facility]) Procedures CT CHEST W CONTRAST Augustina Colin MD PhD Referral ID Status Reason Start Date Expiration Date Visits Re quested Visits Authorized [id number] Closed 05/21/2021 11/17/2021 1 1 Reason for Visit * Radiology Services (Routine/Next Available) - Closed Specialty Diagnoses / Procedures [facility] To Contact Diagnoses Malignant neoplasm of right female breast, unspecified estrogen receptor status, unspecified site of breast ([facility]) Procedures CT CHEST W CONTRAST Augustina Colin MD PhD Referral ID Status Reason Start Date Expiration Date Visits Re quested Visits Authorized [id number] Closed 05/21/2021 11/17/2021 1 1 Encounter Details Date Type Department Care Team (Latest Contact Info) Description 06/09/2021 9:43 EST [facility] Rad[facility] - Main [place] [address] [place], [place] [address] Malignant neoplasm of right female breast, unspecified estrogen receptor status, unspecified site of breast ([facility]) ([facility]) ([facility]) Discharge Disposition: Home or Self Care [...] Tablets by mouth as needed. 12/07/2023 mv-mn/C/glutamin/lysin /[id number] (AIRBORNE, ASCORBATE SODIUM, ORAL) Take by mouth [...] Appointment [facility] Interventional Radiology Unit [address] [place] [address] [phone] 04/02/2024 15:[address] [facility] Surgical Oncology - [address] 530641 Adolfo Carreno MD 111 [facility], Level 2 [place] [phone] 04/05/2024 9:30 EDT Telemedicine [facility] - [facility] Palliative Care Services [address], [place] 176291 Chichi Woods MD 111 [facility], [address] [phone] 04/11/2024 15:00 EDT Telemedicine [facility] Hematology & Oncology - [facility] [address], [place] 788371 Alisson Carreon MD [address] [place] [address], [facility] 2 [place] [phone] 04/13/2024 13:30 EDT Appointment [facility] Hematology & Oncology [address] [phone] 04/13/2024 14:00 EDT Appointment [facility] Hematology & Oncology - [address] [phone] 04/16/2024 10:00 EST Telemedicine [facility] - [facility] Palliative Care Services [address] [place] [address] [phone] Chichi Woods MD [address] [place] [phone] 04/24/2024 9:00 EST Appointment [facility] Radiology CT Outpatient - [address] [phone] 04/24/2024 11:[address] [facility] Breast Imaging - [address] [phone] 04/27/2024 12:00 EST Appointment [facility] Hematology & Oncology - [address] [phone] 05/02/2024 15:00 EST Telemedicine [facility] Hematology & Oncology - [address] 837311 Alisson Carreon MD [address] [place] [address], [facility] 2 [place] [phone] 05/04/2024 10:[address] [facility] Cardiology - [address] [place], [place] [phone] 05/04/2024 11:30 EST Appointment [facility] Hematology & Oncology - [address] [address] 05/04/2024 12:00 EST Appointment [facility] Hematology & Oncology - [address] [address] 06/12/2024 13:00 EST Appointment [facility] Radiology CT - [address] [address] documented as of this encounter Procedures Procedure Name Priority Date/Time Associated Diagnosis Comments CT CHEST W CONTRAST Routine 06/09/2021 1 0:37 EST Malignant neoplasm of right female breast, unspecified estrogen receptor status, unspecified site of breast (HCC-CMS) (HCC) (HCC-CMS) documented in this encounter Results * CT CHEST W CONTRAST (06/09/2021 10:37 EST) Anatomical Region Laterality Modality Chest Computed Tomogra phy 06/09/2021 11:0 2 EST Impressions 06/09/2021 11:02 EST 1. ??Minimal increase in a cluster of nodules or lobulated nodule is a 6 mm in diameter in the left lung apex. This is concerning for an enlarging metastatic lesion. 2. ??Improving multifocal pneumonitis. 3. ??Otherwise stable appearance of the chest compared to prior examination. Narrative 06/09/2021 11:[address] CHEST W CONTRAST ??06/09/2021 10:30 AM Clinical History/Comments: cancer; Breast, neoplasm Technique: A single breath-hold helical CT acquisition was performed through the chest on a multidetector-row scanner with a reconstructed slice thickness of 3 mm and retrospectively reconstructed 0.9 mm thick sections with 0.45 mm overlapping intervals. ??The scans were obtained from the lung apices through the bases during the intravenous administration of 70-100 cc of 350-370 mg% nonionic contrast injected at a rate of 2 cc/second. Scans were reviewed on a dedicated PACS workstation for analysis. Exam description: CT of the chest with contrast Comparison: Chest CT with contrast 07/27/2020. Findings: Lower neck: Unchanged normal size left supraclavicular lymph nodes. Chest wall soft tissues: Patient is status post right mastectomy and bilateral breast implants. There is no change in the scattered nonenlarged axillary and subpectoral seen previously. Mediastinum and mariann: Again noted is the 5-6 mm right upper internal mammary lymph node present previously and unchanged. ??The esophagus appears normal. Heart and mediastinal vasculature: ??No abnormalities. Large airways: ??No abnormalities. Lungs: ??There are innumerable small pulmonary nodules bilaterally which were all present previously. There is a lobulated nodule or cluster of nodules in the left lung apex anterolaterally that has minimally increased in size from studies of 2019 now measuring approximately 6 mm in diameter. There has been progressive improvement in the areas of groundglass opacity seen within the lungs bilaterally with very minimal patches of groundglass evident within both lungs. Pleura: No abnormalities. Upper abdomen (limited to upper abdomen, not optimized for abdominal imaging): The hepatic lesions described previously are difficult to discern on contrast- enhanced chest CT but are evaluated on the MR of the abdomen performed February 2021. Bones: ??Again noted is degenerative disc disease within the lower cervical upper thoracic and upper lumbar spine regions. A small lucent lesion in the T12 vertebral body was present previously and is likely benign. Procedure Note Evan Garcia MD - 06/09/2021 CT CHEST W CONTRAST 06/09/2021 10:30 AM Clinical History/Comments: cancer; Breast, neoplasm Technique: A single breath-hold helical [facility] with a reconstructed slice thicknessof 3 mm and retrospectively reconstructed 0.9 mm thick sections with 0.45mm overlapping intervals. The scans were obtained from the lung apicesthrough the bases during the intravenous administration of 70-100 cc uq315-735 mg% nonionic contrast injected at a rate of 2 cc/second. Scanswere reviewed on a dedicated PACS workstation for analysis. Exam description: CT of the chest with contrast Comparison: Chest CT with contrast 07/27/2020. Findings: Lower neck: Unchanged normal size left supraclavicular lymph nodes. Chest wall soft tissues: Patient is status post right mastectomy andbilateral breast implants. There is no change in the scattered nonenlargedaxillary and subpectoral seen previously. Mediastinum and mariann: Again noted is the 5-6 mm right upper internalmammary lymph node present previously and unchanged. The esophagusappears normal. Heart and mediastinal vasculature: No abnormalities. Large airways: No abnormalities. Lungs: There are innumerable small pulmonary nodules bilaterally whichwere all present previously. There is a lobulated nodule or cluster ofnodules in the left lung apex anterolaterally that has minimally increasedin size from studies of 2019 now measuring approximately 6 mm indiameter. There has been progressive improvement in the areas of groundglass opacityseen within the lungs bilaterally with very minimal patches of groundglassevident within both lungs. Pleura: No abnormalities. Upper abdomen (limited to upper abdomen, not optimized for abdominalimaging): The hepatic lesions described previously are difficult todiscern on contrast- enhanced chest CT but are evaluated on the MR of theabdomen performed February 2021. Bones: Again noted is degenerative disc disease within the lower cervicalupper thoracic and upper lumbar spine regions. A small lucent lesion inthe T12 vertebral body was present previously and is likely benign. IMPRESSION 1. Minimal increase in a cluster of nodules or lobulated nodule is a 6 mmin diameter in the left lung apex. This is concerning for an enlargingmetastatic lesion. 2. Improving multifocal pneumonitis. 3. Otherwise stable appearance of the chest compared to priorexamination. Augustina Colin MD PhD IMG CT ORDERABLES documented in this encounter Visit Diagnoses Diagnosis Malignant neoplasm of right female breast, unspecified estrogen receptor status, unspecified site of breast ([facility]) documented in this encounter Administered Medications Inactive Administered Medications - up to 3 most recent administrations Medication Order MAR Action Action Date Dose Rate Site iohexoL (OMNIPAQUE 350) solution 100 mL 100 mL, intravenous, Once in imaging, 1 dose, Starting on Tue06/09/21 at 1037, Until Tue06/09/21 at 1037, Routine, Imaging Protocol Orders Given 06/09/2021 10:37 EST 52 mL documented in this encounter Care Teams Generator Switchboard Operator Relationship Specialty Start Date End Date Linda Blancas MD [facility] [address] [place] [address] PCP - General 01/06/11 Adolfo Carreno MD 111 [facility], [facility] 2 [place] [phone] General Surgery 04/26/19 Augustina Colin MD PhD [address] [place] [address] 2 [place] [address] Medical Oncology 04/26/19 documented as of this encounter
--- OUTSIDE RECORDS SUMMARY | 2024-03-20 14:53 | XMS_ITS | Encounter Summary ---
Author Organization [facility] Address [address] [place] [address] Care Team Providers Care Irrigator Valve Pipe Name Role Phone Linda Blancas MD Primary Care Provider [phone] Adolfo Carreno MD Unavailable [phone] Augustina Colin MD PhD Unavailable Unavailable Encounter Details Date Type Department Care Team (Late st Contact Info) Description 07/03/2021 Specialty Pharmacy [facility] [address] [place], [place] [phone] Allen Day, [facility] [...] Appointment [facility] Interventional Radiology Unit [address] [place] [address] [phone] 04/02/2024 15:15 EDT Office Visit [facility] Surgical Oncology - [address] 144311 Adolfo Carreno MD [address] [place] [phone] 04/05/2024 9:30 EDT Telemedicine [facility] - [facility] Palliative Care Services [address] [place] [address] [phone] Chichi Woods MD [address] [place] [phone] 04/11/2024 15:00 EDT Telemedicine [facility] Hematology & Oncology [address] [phone] Alisson Carreon MD [address] [place] [phone] 04/13/2024 13:30 EDT Appointment [facility] Hematology & Oncology [address] 300291 04/13/2024 14:00 EDT Appointment [facility] Hematology & Oncology [address] [phone] 04/16/2024 10:00 EST Telemedicine [facility] - [facility] Palliative Care Services [address] [place] [address] [phone] Chichi Woods MD [address] [place] [address], [address] [place] [phone] 04/24/2024 9:00 EST Appointment [facility] Radiology CT Outpatient - [address] 120281 04/24/2024 11:00 EST Appointment [facility] Breast Imaging - [facility] [place] 1 [place], [place] [phone] 04/27/2024 12:00 EST Appointment [facility] Hematology & Oncology - [address] 110791 05/02/2024 15:00 EST Telemedicine [facility] Hematology & Oncology - [address] [phone] Alisson Carreon MD [address] [place] [address], Level [address] [place] [phone] 05/04/2024 10:15 EST Ancillary Procedure [facility] Cardiology - [address] [place], [place] [phone] 05/04/2024 11:30 EST Appointment [facility] Hematology & Oncology - [address] [phone] 05/04/2024 12:00 EST Appointment [facility] Hematology & Oncology [address] [phone] 06/12/2024 13:00 EST Appointment [facility] Radiology CT - [address] [phone] documented as of this encounter Visit Diagnoses Not on filedocumented in this encounter Care Teams Irrigator Valve Pipe Relationship Specialty Start Date End Date Linda Blancas MD [facility] [address] [place] [address] PCP - General 01/06/11 Adolfo Carreno MD [address] [place] [address], [facility] 2 [place] [phone] General Surgery 04/26/19 Augustina Colin MD PhD [address] [place] [address], [address] [phone] Medical Oncology 04/26/19 documented as of this encounter
--- OUTSIDE RECORDS SUMMARY | 2024-03-20 14:53 | XMS_ITS | Encounter Summary ---
Author Organization [facility] Address [address] [place] [address] Care Team Providers Care Translational Specialist Name Role Phone Linda Blancas MD Primary Care Provider [phone] Adolfo Carreno MD Unavailable Augustina Colin MD PhD Unavailable Unavailable Encounter Details Date Type Department Care Team (Late st Contact Info) Description 05/13/2021 Orders Only [facility] Hematology & Oncology - [facility] [address] [place] [address] Augustina Colin, PhD Social History Tobacco Use [...] Appointment [facility] Interventional Radiology Unit [address] [place] [address] [phone] 04/02/2024 15:15 EDT Office Visit [facility] Surgical Oncology - [address] [phone] Adolfo Carreno MD [address] [place] [address] [phone] 04/05/2024 9:30 EDT Telemedicine [facility] - [facility] Palliative Care Services [address] [place] [address] [phone] Chichi Woods MD [address] [place] [address] [phone] 04/11/2024 15:[address] [facility] Hematology & Oncology [address] [phone] Alisson Carreon MD [address] [place] [address] [phone] 04/13/2024 13:[address] Hematology & Oncology [address] [id number] 04/13/2024 14:[address] Hematology & Oncology [address] [id number] 04/16/2024 10:00 EST Telemedicine [facility] - [facility] Palliative [facility] Services [address] [place] [address] [phone] Chichi Woods MD [address] [place] [address], [address] [phone] 04/24/2024 9:00 EST Appointment [facility] Radiology CT Outpatient - [address] [id number] 04/24/2024 11:00 EST Appointment [facility] Breast Imaging - [facility] [address] [place], [place] 543521 04/27/2024 12:[address] [facility] Hematology & Oncology - [address] [phone] 05/02/2024 15:[address] [facility] Hematology & Oncology - [address] [address] Alisson Carreon MD [address] [place] [address], [facility] Level [address] [place] [phone] 05/04/2024 10:15 EST Ancillary Procedure [facility] Cardiology - [address] [place], [place] [phone] 05/04/2024 11:[address] Hematology & Oncology - [address] [id number] 05/04/2024 12:[address] Hematology & Oncology [address] [phone] 06/12/2024 13:00 EST Appointment [facility] Radiology CT - [address] [phone] documented as of this encounter Visit Diagnoses Not on filedocumented in this encounter Care Teams Translational Specialist Relationship Specialty Start Date End Date Linda Blancas MD [facility] [address] [place] [address] PCP - General 01/06/11 Adolfo Carreno MD [address] [place] [address], [facility] 2 [place] [phone] General Surgery 04/26/19 Augustina Colin MD PhD [address] [place] [address], [facility] 2 [place] [phone] Medical Oncology 04/26/19 documented as of this encounter
--- OUTSIDE RECORDS SUMMARY | 2024-03-20 14:53 | XMS_ITS | Encounter Summary ---
Author Organization [facility] Address [address] [place] [address] Care Team Providers Care Lead Security Officer Name Role Phone Linda Blancas MD Primary Care Provider [phone] Adolfo Carreno MD Unavailable [phone] Augustina Colin MD PhD Unavailable Unavailable Encounter Details Date Type Department Care Team (Latest Contact Info) Description 04/16/2021 14:30 EDT Phlebotomy Only [facility] Cancer Center Hematology & Oncology - Main [place] [address] [place] [address] Blood Doctor, [facility] Hem Onc Metastatic breast cancer [...] Progress Notes * Eric James MA - 04/16/2021 1430 EDT Venipuncture performed for Dittus Per orders of Dittus Number of attempts 1 on RBV by MP I was supervised by Mike who was present and immediately available in the office suite. ERIC JAMES MA 04/16/2021 14:38 documented in this encounter Plan of Treatment Upcoming Encounters Date Type Department Care Team (Late st Contact Info) Description 04/02/2024 10:30 EDT Appointment [facility] Interventional Radiology Unit [address] [place] [address] [phone] 04/02/2024 15:15 EDT Office Visit [facility] Surgical Oncology - [address] [phone] Adolfo Carreno MD 111 [facility], [facility] 2 [place] [phone] 04/05/2024 9:30 EDT Telemedicine [facility] Palliative Care Services [address] [place], [place] [phone] Chichi Woods MD [address] [facility] [place] [address] [place] [phone] 04/11/2024 15:[address] Hematology & Oncology - [facility] [address] [place], [place] [phone] Alisson Carreon MD [address] [place] [address], [facility] 2 [place] [phone] 04/13/2024 13:[address] Hematology & Oncology - [address] [phone] 04/13/2024 14:[address] Hematology & Oncology - [address] [id number] 04/16/2024 10:00 EST Telemedicine [facility] - [facility] Palliative Care Services [address] [place] [address] [phone] Chichi Woods MD [address] [place] [address], [address] [phone] 04/24/2024 9:00 EST Appointment [facility] Radiology CT Outpatient - [address] [id number] 04/24/2024 11:00 EST Appointment [facility] Breast Imaging - [address] [id number] 04/27/2024 12:[address] Hematology & Oncology - [address] [phone] 05/02/2024 15:[address] Hematology & Oncology - [address] 030851 Alisson Carreon MD [address] [place] [address], [facility] 2 [place] [phone] 05/04/2024 10:15 EST Ancillary Procedure [facility] Cardiology - [address] [place], [place] [phone] 05/04/2024 11:[address] Hematology & Oncology - [address] [address] 05/04/2024 12:[address] [facility] Hematology & Oncology - [address] [address] 06/12/2024 13:00 EST Appointment [facility] Radiology CT - [address] [address] documented as of this encounter Procedures Procedure Name Priority Date/Time Associated Diagnosis Comments COMPREHENSIVE METABOLIC PANEL (ONCOLOGY USE ONLY-INC MG) STAT 04/16/2021 14:45 EDT Metastatic breast cancer (HCC-CMS) (HCC) (HCC-CMS) COMPLETE BLOOD COUNT AND DIFFERENTIAL STAT 04/16/2021 14:45 EDT Metastatic breast cancer (HCC-CMS) (HCC) (HCC-CMS) documented in this encounter Results * COMPLETE BLOOD COUNT AND DIFFERENTIAL (04/16/2021 14:45 EDT) WBC 7.16 4.00 - 12.40 K/cmm 04/16/2021 14:58 [facility] RBC 4.31 3.86 - 5.04 M/cmm 04/16/2021 14:58 [facility] Hemoglobin 13.7 11.6 - 15.2 gm/dL 04/16/2021 14:58 [facility] HCT 41.2 34.9 - 44.4 % 04/16/2021 14:58 [facility] MCV 96 81 - 98 fl 04/16/2021 14:58 [facility] MCH 31.8 26.7 - 33.3 pg 04/16/2021 14:58 [facility] MCHC 33.3 32.1 - 35.9 gm/dL 04/16/2021 14:58 [facility] RDW-CV 12.2 <14.7 % 04/16/2021 14:58 [facility] RDW-SD 42.6 <50.4 fl 04/16/2021 14:58 [facility] PLT 267 141 - 377 K/cmm 04/16/2021 14:58 [facility] MPV 9.9 9.5 - 12.7 fl 04/16/2021 14:58 [facility] % Neutrophils 54.4 % 04/16/2021 14:58 [facility] % Lymphocytes 35.8 % 04/16/2021 14:58 [facility] % Monocytes 6.7 % 04/16/2021 14:58 [facility] % Eosinophils 2.4 % 04/16/2021 14:58 [facility] % Basophils 0.6 % 04/16/2021 14:58 [facility] % Immature Grans 0.1 % 04/16/20 14:58 [facility] Absolute Neutrophils 3.90 2.20 - 8.85 K/cmm 04/16/2021 14:58 [facility] Absolute Lymphocytes 2.56 1.09 - 3.30 K/cmm 04/16/2021 14:58 [facility] Absolute Monocytes 0.48 0.10 - 0.80 K/cmm 04/16/2021 14:58 [facility] Absolute Eosinophils 0.17 0.03 - 0.61 K/cmm 04/16/2021 14:58 [facility] ABS Basophils 0.04 0.01 - 0.11 K/cmm 04/16/2021 14:58 [facility] Absolute Immature Grans 0.01 0.00 - 0.06 K/cmm 04/16/2021 14:58 [facility] Type of Differential: Auto 04/16/2021 14:58 [facility] Blood VENOUS BLOOD / Unknown Venipuncture / Unknown 04/16/2021 14:45 EDT 04/16/2021 14:48 EDT Augustina Colin MD PhD PACKAGES & DNA PROBE ORDERABLES [facility] [address] [place] [address] * COMPREHENSIVE METABOLIC PANEL (ONCOLOGY USE ONLY-INC MG) (04/16/2021 14:45 EDT) Sodium 142 136 - 145 mmol/L 04/16/2021 15:07 [facility] Potassium 4.6 3.5 - 5.0 mEq/L 04/16/2021 15:07 [facility] Chloride 106 96 - 110 mEq/L 04/16/2021 15:07 [facility] CO2 Total 27 22 - 32 mEq/L 04/16/2021 15:07 [facility] Glucose 100 70 - 100 mg/dL 04/16/2021 15:07 [facility] BUN 20 10 - 26 mg/dL 04/16/2021 15:07 [facility] Creatinine 0.83 0.52 - 1.04 mg/dL 04/16/2021 15:07 [facility] eGFR 77 >60 mL/min/1.7 3m2 04/16/2021 15:07 [facility] Comment:eGFR calculated gordo ureña CKD-EPI equation for non- Americans. Multiply eGFR by 1.16 for patients. Total Protein 7.5 6.3 - 8.2 g/dL 04/16/2021 15:07 [facility] Albumin 4.7 3.4 - 4.9 g/dL 04/16/2021 15:07 [facility] Alkaline Phosphatase 69 38 - 126 U/L 04/16/2021 15:07 [facility] AST 33 15 - 46 U/L 04/16/2021 15:07 [facility] ALT 23 <35 U/L 04/16/2021 15:07 [facility] Bilirubin, Total <0.5 <1.4 mg/dL 04/16/20 15:07 [facility] Calcium 10.2 8.5 - 10.5 mg/dL 04/16/2021 15:07 EDT [facility] Magnesium 2.3 1.7 - 2.8 mg/dL 04/16/2021 15:07 EDT [facility] Albumin/Globulin Ratio 1.7 1.0 - 2.5 04/16/2021 15:07 EDT [facility] Anion Gap 9 8 - 16 04/16/2021 15:07 EDT [facility] Blood VENOUS BLOOD / Unknown Venipuncture / Unknown 04/16/2021 14:45 EDT 04/16/2021 14:48 EDT Augustina Colin MD PhD CHEMISTRY & BLOOD GA S ORDERABLES Performing Organization Address City/State/[facility] Co de Phone Number [facility] [address] [place] [address] documented in this encounter Visit Diagnoses Diagnosis Metastatic breast cancer- Primary documented in this encounter Care Teams Lead Security Officer Relationship Specialty Start Date End Date Linda Blancas MD [address] [place] [address] [address] [place] [address] PCP - General 01/06/11 Adolfo Carreno MD [address] [place] [address] [phone] General Surgery 04/26/19 Augustina Colin MD PhD [address] [place] [phone] Medical Oncology 04/26/19 documented as of this encounter
--- OUTSIDE RECORDS SUMMARY | 2024-03-20 14:53 | XMS_ITS | Encounter Summary ---
Author Organization [facility] Address [address] [place] [address] Care Team Providers Care Cable Cutter And Swager Name Role Phone Linda Blancas MD Primary Care Provider [phone] Adolfo Carreno MD Unavailable Augustina Colin MD PhD Unavailable Unavailable Encounter Details Date Type Department Care Team (Late st Contact Info) Description 06/17/2021 Orders Only [facility] Radiology - Main [place] [address] [place], [place] 304661 Anusha Mcmahon MD [address] [place] [phone] Social History Tobacco Use Types Packs/Day Years [...] Contact Info) Description 04/02/2024 10:30 EDT Appointment [facility] Interventional Radiology Unit [address] [place] [address] [phone] 04/02/2024 15:15 EDT Office Visit [facility] Surgical Oncology - [address] [phone] Adolfo Carreno MD [address] [place] [address], [facility] 2 [place] [phone] 04/05/2024 9:30 EDT Telemedicine [facility] - [facility] Palliative Care Services [address] [place], [place] [phone] Chichi Woods MD [address] [place] [address], [address] [phone] 04/11/2024 15:00 EDT Telemedicine [facility] Hematology & Oncology - [address] [phone] Alisson Carreon MD [address] [place] [address], [facility] 2 [place] [phone] 04/13/2024 13:30 EDT Appointment [facility] Hematology & Oncology - [address] [phone] 04/13/2024 14:00 EDT Appointment [facility] Hematology & Oncology - [address] [address] 04/16/2024 10:00 EST Telemedicine [facility] - [facility] Palliative Care Services [address] [place] [address] [phone] Chichi Woods MD [address] [place] [address] [phone] 04/24/2024 9:00 EST Appointment [facility] Radiology CT Outpatient - [address] 304231 04/24/2024 11:00 EST Appointment [facility] Breast Imaging - [facility] S [address] [phone] 04/27/2024 12:00 EST Appointment [facility] Hematology & Oncology - [address] [phone] 05/02/2024 15:00 EST Telemedicine [facility] Hematology & Oncology [address] [phone] Alisson Carreon MD [address] [place] [address], Level [address] [place] [phone] 05/04/2024 10:15 EST Ancillary Procedure [facility] Cardiology [place] [place] [address] 05/04/2024 11:30 EST Appointment [facility] Hematology & Oncology [address] [phone] 05/04/2024 12:00 EST Appointment [facility] Hematology & Oncology - [address] [address] 06/12/2024 13:00 [facility] Radiology CT - [address] [phone] documented as of this encounter Visit Diagnoses Not on filedocumented in this encounter Care Teams Cable Cutter And Swager Relationship Specialty Start Date End Date Linda Blancas MD [facility] [address] [place] [address] PCP - General 01/06/11 Adolfo Carreno MD [address] [place] [address] [phone] General Surgery 04/26/19 Augustina Colin MD PhD [address] [place] [address] 2 [place] [phone] Medical Oncology 04/26/19 documented as of this encounter
--- OUTSIDE RECORDS SUMMARY | 2024-03-20 14:53 | XMS_ITS | Encounter Summary ---
Author Organization [facility] Address [address] [place] [address] Care Team Providers Care Sand Technician Name Role Phone Linda Blancas MD Primary Care Provider [phone] Adolfo Carreno MD Unavailable [phone] Augustina Colin MD PhD Unavailable Unavailable Encounter Details Date Type Department Care Team (Late st Contact Info) Description 05/29/2021 Specialty Pharmacy [facility] [address] [place], [place] 665591 Allen Day, [facility] MARY BLACK [...] [facility] [address] [place] [address] [phone] 04/02/2024 15:15 EDT Office Visit [facility] Surgical Oncology - [address] 836341 Adolfo Carreno MD [address] [place] [address] [phone] 04/05/2024 9:30 EDT Telemedicine [facility] - [facility] Palliative Care Services [address] [place] [address] [phone] Chichi Woods MD [address] [place] [address] [phone] 04/11/2024 15:00 EDT Telemedicine [facility] Hematology & Oncology [address] [phone] Alisson Carreon MD [address] [place] [address] [phone] 04/13/2024 13:30 EDT Appointment [facility] Hematology & Oncology [address] [id number] 04/13/2024 14:00 EDT Appointment [facility] Hematology & Oncology [address] [phone] 04/16/2024 10:00 EST Telemedicine [facility] - [facility] Palliative Care Services [address] [place] [address] [phone] Chichi Woods MD [address] [place] [address], [place] [address] [place] [phone] 04/24/2024 9:00 EST Appointment [facility] Radiology CT Outpatient - [address] [phone] 04/24/2024 11:00 EST Appointment [facility] Breast Imaging - [facility] S [place] [address] [place], [place] 398681 04/27/2024 12:00 EST Appointment [facility] Hematology & Oncology - [address] [phone] 05/02/2024 15:00 EST Telemedicine [facility] Hematology & Oncology - [address] 549151 Alisson Carreon MD [address] [place] [address], Level [address] [place] [phone] 05/04/2024 10:15 EST Ancillary Procedure [facility] Cardiology - [address] [place], [place] [phone] 05/04/2024 11:30 EST Appointment [facility] Hematology & Oncology - [address] [phone] 05/04/2024 12:00 EST Appointment [facility] Hematology & Oncology [address] [phone] 06/12/2024 13:00 EST Appointment [facility] Radiology CT - [address] [phone] documented as of this encounter Visit Diagnoses Not on filedocumented in this encounter Care Teams Sand Technician Relationship Specialty Start Date End Date Linda Blancas MD [facility] [address] [place] [address] PCP - General 01/06/11 Adolfo Carreno MD [address] [place] [address], [facility] 2 [place] [phone] General Surgery 04/26/19 Augustina Colin MD PhD [address] [place] [address], [address] [phone] Medical Oncology 04/26/19 documented as of this encounter
--- OUTSIDE RECORDS SUMMARY | 2024-03-20 14:53 | XMS_ITS | Encounter Summary ---
Author Organization [facility] Address [address] [place] [address] Care Team Providers Care Spa Receptionist Name Role Phone Linda Blancas MD Primary Care Provider [phone] Adolfo Carreno MD Unavailable [phone] Augustina Colin MD PhD Unavailable Unavailable Reason for Referral * Radiology Services (Routine/Next Available) - Closed Specialty Diagnoses / Procedures [facility] Referred To Contact Radiology Diagnoses Malignant neoplasm of right female breast, unspecified estrogen receptor status, unspecified site of breast (HCC-CMS) Procedures MR ABDOMEN W WO CONTRAST Augustina Colin MD PhD [facility] Referral ID Status Reason Start Date Expiration Date Visits Re quested Visits Authorized [id number] Closed 07/10/2021 01/06/2022 1 1 Reason for Visit * Reason Comments Follow-up Injections Encounter Details Date Type Department Care Team (Late st Contact Info) Description 06/11/2021 10:00 EST Office Visit [facility] Hematology & Oncology - Main [place] [address] [place], [place] [id number] Augustina Colin MD PhD Malignant neoplasm of right female breast, unspecified estrogen receptor status, unspecified site of breast (HCC-CMS) (HCC) (HCC-CMS) Social History Tobacco Use [...] Sign Reading Time Taken Comments Blood Pressure 142/59 06/11/2021 1000 EST Pulse 84 06/11/2021 1000 EST Temperature 35.8 ??C (96.4 ??F) 06/11/2021 1000 EST Respiratory Rate 16 06/11/2021 1000 EST Oxygen Saturation 100% 06/11/2021 1000 EST Inhaled Oxygen Concentration - - Weight 63.9 kg (140 lb 12.8 oz) 06/11/2021 1000 EST Height - - Body Mass Index 26.52 05/14/2021 1238 EST documented in this encounter [...] Notes * Augustina Colin MD PhD - 06/11/2021 1000 EST REASON FOR OFFICE VISIT: ??Discussion of side effects related to anti estrogen therapy and scan results ? PROBLEM LIST: 1. 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 a. ??Ultrasound performed in [place]??identifying an irregular heterogeneous soft tissue mass measuring 1.2 x 1.2 x 1.5 cm. ?? 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 ??HER-2 1+ by IHC. ??ANNE MARIE revealed [...] breast tumor 07/07/17 and placement of tissue physician practice consultant. ??1.9 cm tumor at time of surgery, well differentiated, with LVI present, and negative margins. ?? G. Biopsy left cervical LN 02/11/20 - consistent with metastatic adenocarcinoma consistent with breast primary H. Fulvestrant initiated 03/06/20; abemaciclib initiated 03/31/20 discontinued 06/01 due to diarrhea; palbociclib initiated March 2021 2. ??Restaging scans: ?? - MRI Abdomen 06/09/21: Mild increase in size of known hepatic metastases with several additional new subcentimeter lesions. - CT Chest 06/09/21: Minimal increase in a cluster of nodules or lobulated nodule is a 6 mm in diameter in the left lung apex. This is concerning for an enlarging metastatic lesion. - Nuclear bone scan??06/09/21: New focus of increased activity in the right iliac crest, suspiciousfor a new skeletal metastasis. 3. ??DCIS in 2004 at the age [...] with hospitalization June 2020 ?? SUBJECTIVE: ??Ms Eldridge presents to clinic to discuss side effects related to faslodex and scan results. She had an MRI, CT and nuclear bone scan completed Tuesday. She is aware of the small progression. She took palbociclib in Apr but then held it fur a foot surgery. She will be able to restart it Jun 15. She tolerates faslodex other than some discomfort at the site of the injection. She has a big bruise with the lest injection. She has not had problems with hot flashes. She continues to be active. ROS: A 10 point review of systems [...] FORMULA ORAL) Take by mouth daily. ??? mv-mn/C/glutamin/lysin/kiqd803 (AIRBORNE, ASCORBATE SODIUM, ORAL) Take by mouth [...] She continues to be active. Objective: BP (!) 142/59 Pulse 84 Temp 35.8 ??C (96.4 ??F) (Skin) Resp 16 Wt 63.9 kg (140 lb 12.8 oz) SpO2 100% BMI 26.52 kg/m?? Estimated body mass index is 26.52 kg/m?? as calculated from the following: Height as of 05/14/21: 155.2 cm (61.1). Weight as of this encounter: 63.9 kg (140 lb 12.8 oz). ECOG Performance Status: 0 General: Comfortable, cooperative and in no apparent distress NEURO: Alert and oriented x 3; Grossly neurologically intact DIAGNOSTIC DATA Hospital Outpatient Visit on 06/11/2021 Component Date Value Ref Range Status ??? Sodium 06/11/2021 140 136 - 145 mmol/L Final ??? Potassium 06/11/2021 4.7 3.5 - 5.0 mmol/L Final ??? Chloride 06/11/2021 103 96 - 110 mmol/L Final ??? CO2 Total 06/11/2021 31 22 - 32 mmol/L Final ??? Glucose 06/11/2021 82 70 - 100 mg/dL Final ??? BUN 06/11/2021 26 10 - 26 mg/dL Final ??? Creatinine 06/11/2021 0.72 0.52 - 1.04 mg/dL Final ? ? eGFR 06/11/2021 92 >60 mL/min/1.73m2 Final ??? Total Protein 06/11/2021 7.3 6.3 - 8.2 g/dL Final ??? Albumin 06/11/2021 4.3 3.4 - 4.9 g/dL Final ??? Alkaline Phosphatase 06/11/2021 77 38 - 126 U/L Final ??? AST 06/11/2021 31 15 - 46 U/L Final ? ? ALT 06/11/2021 23 <35 U/L Final ? ? Bilirubin, Total 06/11/2021 <0.5 <1.4 mg/dL Final ??? Calcium 06/11/2021 9.9 8.5 - 10.5 mg/dL Final ??? Magnesium 06/11/2021 2.2 1.7 - 2.8 mg/dL Final ??? Albumin/Globulin Ratio 06/11/2021 1.4 1.0 - 2.5 Final ??? Anion Gap 06/11/2021 6* 8 - 16 Final Phlebotomy Only on 06/11/2021 Component Date Value Ref Range Status ??? WBC 06/11/2021 7.88 4.00 - 12.40 K/cmm Final ??? RBC 06/11/2021 4.01 3.86 - 5.04 M/cmm Final ??? Hemoglobin 06/11/2021 13.4 11.6 - 15.2 gm/dL Final ??? HCT 06/11/2021 40.5 34.9 - 44.4 % Final ??? MCV 06/11/2021 101* 81 - 98 fl Final ??? MCH 06/11/2021 33.4* 26.7 - 33.3 pg Final ??? MCHC 06/11/2021 33.1 32.1 - 35.9 gm/dL Final ? ? RDW-CV 06/11/2021 13.4 <14.7 % Final ? ? RDW-SD 06/11/2021 50.2 <50.4 fl Final ??? PLT 06/11/2021 231 141 - 377 K/cmm Final ??? MPV 06/11/2021 10.2 9.5 - 12.7 fl Final ??? Neutrophils 06/11/2021 54.1 % Final ??? Lymphocytes 06/11/2021 32.7 % Final ??? Monocytes 06/11/2021 7.7 % Final ??? Eosinophils 06/11/2021 4.3 % Final ??? Basophils 06/11/2021 0.9 % Final ??? Immature Grans 06/11/2021 0.3 % Final ??? Absolute Neutrophils 06/11/2021 4.26 2.20 - 8.85 K/cmm Final ??? Absolute Lymphocytes 06/11/2021 2.58 1.09 - 3.30 K/cmm Final ??? Absolute Monocytes 06/11/2021 0.61 0.10 - 0.80 K/cmm Final ??? Absolute Eosinophils 06/11/2021 0.34 0.03 - 0.61 K/cmm Final ??? Absolute Basophils 06/11/2021 0.07 0.01 - 0.11 K/cmm Final ??? Absolute Immature Grans 06/11/2021 0.02 0.00 - 0.06 K/cmm Final ??? Type of Differential: 06/11/2021 Auto Final ASSESSMENT: ??Ms Bernstein is a 60-year-old female with metastatic breast cancer.?? She startedon fluvesterant fall with abemaciclib added in March 2020 which was discontinued a few months later due to significant diarrhea. She restarted palbociclib in March since scan results fromNovember indicated a mixed response. Her staging scans from indicated a small amount of progression. She was unable to take palbociclb in May. She will restart it Jun 3. Zolendronic acid every 6 mos. She takes a vitamin D supplement and we have encouraged weight bearing exercise. PLAN: 1. Faslodex 500mg today and monthly 2. Restart Palbocilb 100mg daily out of 28 days June 2021 3. Zoledronic acid q 6mo, next due July 2021 4. MR abdomen in approx 2 mos to assess response 5.??Continued follow-up with Dr. Carreno and Dr Boss 6. FUR late Jul Patient is encouraged call with any intercurrent concerns or problems. documented in this encounter Plan of Treatment Upcoming Encounters Date Type Department Care Team (Late st Contact Info) Description 04/02/2024 10:30 EDT Appointment [facility] Interventional Radiology Unit [address] [place] [address] [phone] 04/02/2024 15:15 EDT Office Visit [facility] Surgical Oncology - [address] [phone] Adolfo Carreno MD [address] [place] [address] 2 [place] [phone] 04/05/2024 9:30 EDT Telemedicine [facility] - [facility] Palliative Care Services [address] [place] [address] [phone] Chichi Woods MD [address] [place] [address], [address] [phone] 04/11/2024 15:00 EDT Telemedicine [facility] Hematology & Oncology [address] 275221 Alisson Carreon MD [address] [place] [address] 2 [place] [phone] 04/13/2024 13:30 EDT Appointment [facility] Hematology & Oncology - [address] [phone] 04/13/2024 14:00 EDT Appointment [facility] Hematology & Oncology - [address] [id number] 04/16/2024 10:00 EST Telemedicine [facility] - [facility] Palliative Care Services [address] [place] [phone] Chichi Woods MD [address] [facility], [address] [phone] 04/24/2024 9:00 EST Appointment [facility] Radiology CT Outpatient - [address] [phone] 04/24/2024 11:00 EST Appointment [facility] Breast Imaging - [facility] [address] [place], [place] [address] 04/27/2024 12:00 EST Appointment [facility] Hematology & Oncology - [address] [phone] 05/02/2024 15:00 EST Telemedicine [facility] Hematology & Oncology - [address] [phone] Alisson Carreon MD [address] [place] [address], [facility], Level 2 [place] [phone] 05/04/2024 10:15 EST Ancillary Procedure [facility] Cardiology [place] [address] [place] [address] 05/04/2024 11:30 EST Appointment [facility] Hematology & Oncology - [address] [phone] 05/04/2024 12:00 EST Appointment [facility] Hematology & Oncology - [address] [address] 06/12/2024 13:00 EST Appointment [facility] Radiology CT - [address] [phone] documented as of this encounter Results * [...] AM Signs and Symptoms/Comments: ?? cancer Technique: Li-uqb-cec-of-phase, T2-weighted, diffusion weighted images were followed by [...] 10:00 AM Signs and Symptoms/Comments: cancer Technique: Ej-khr-pui-of-phase, T2-weighted, diffusion weighted images were followedby dynamic [...] Colin MD PhD IMG MRI ORDERABLES * (ABNORMAL) CA 27.29 (06/11/2021 10:55 EST) CA 27.29 101.9(H) <38.0 U/mL 06/12/2021 10:16 EST [facility] Comment: NOTE: Serum CA [...] PhD CHEMISTRY & BLOOD GA S ORDERABLES [facility] [address] [place] [address] documented in this encounter Visit Diagnoses Diagnosis Malignant neoplasm of right female breast, unspecified estrogen receptor status, unspecified site of breast (HCC-CMS) Malignant neoplasm of right female breast, unspecified estrogen receptor status, unspecified site of breast (HCC-CMS) documented in this encounter Orders Appointment Requests Count Last Ordered Date Fi rst Ordered Date ONCBCN CLINIC APPOINTMENT REQUEST 1 021 documented in this encounter Care Teams Spa Receptionist Relationship Specialty Start Date End Date Linda Blancas MD [address] [place] [address] 30 [place] [address] PCP - General 01/06/11 Adolfo Carreno MD [address] [place] [phone] General Surgery 04/26/19 Augustina Colin MD PhD [address] [place] [phone] Medical Oncology 04/26/19 documented as of this encounter
--- OUTSIDE RECORDS SUMMARY | 2024-03-20 14:54 | XMS_ITS | Encounter Summary ---
Author Organization [facility] Address [address] [place] [address] Care Team Providers Care Housekeeper Home Name Role Phone Linda Blancas MD Primary Care Provider [phone] Adolfo Carreno MD Unavailable [phone] Augustina Colin MD PhD Unavailable Unavailable Encounter Details Date Type Department Care Team (Late st Contact Info) Description 04/01/2021 Specialty Pharmacy [facility] Ambulatory Pharm[facility] - [facility] [address] [place], [place] 17[address] Allen Day, [facility] Social History Tobacco Use Types Packs/Day [...] [facility] Interventional Radiology Unit [address] [place] [address] [phone] 04/02/2024 15:15 EDT Office Visit [facility] Surgical Oncology - [address] [phone] Adolfo Carreno MD [address] [place] [phone] 04/05/2024 9:30 EDT Telemedicine [facility] - [facility] Palliative Care Services [address] [place] [address] [phone] Chichi Woods MD [address] [place] [address] [phone] 04/11/2024 15:00 EDT Telemedicine [facility] Hematology & Oncology [address] [phone] Alisson Carreon MD [address] [place] [address] [phone] 04/13/2024 13:30 EDT Appointment [facility] Hematology & Oncology [address] [phone] 04/13/2024 14:00 EDT Appointment [facility] Hematology & Oncology [address] [phone] 04/16/2024 10:00 EST Telemedicine [facility] - [facility] Palliative Care Services [address] [place] [address] [phone] Chichi Woods MD [address] [place] [address], [address] [place] [phone] 04/24/2024 9:00 EST Appointment [facility] Radiology CT Outpatient - [address] [phone] 04/24/2024 11:00 EST Appointment [facility] Breast Imaging - [facility] [address] [place], [place] [address] 04/27/2024 12:00 EST Appointment [facility] Hematology & Oncology - [address] [phone] 05/02/2024 15:00 EST Telemedicine [facility] Hematology & Oncology - [address] [phone] Alisson Carreon MD [address] [place] [address], [address] [place] [phone] 05/04/2024 10:15 EST Ancillary Procedure [facility] Cardiology - [address] [place], [place] [phone] 05/04/2024 11:30 EST Appointment [facility] Hematology & Oncology - [address] [phone] 05/04/2024 12:00 EST Appointment [facility] Hematology & Oncology [address] [phone] 06/12/2024 13:00 EST Appointment [facility] Radiology CT - [address] [phone] documented as of this encounter Visit Diagnoses Not on filedocumented in this encounter Care Teams Housekeeper Home Relationship Specialty Start Date End Date Linda Blancas MD [facility] [address] [place] [address] PCP - General 01/06/11 Adolfo Carreno MD [address] [place] [address], [facility] 2 [place] [phone] General Surgery 04/26/19 Augustina Colin MD PhD [address] [place] [address], [address] [phone] Medical Oncology 04/26/19 documented as of this encounter
--- OUTSIDE RECORDS SUMMARY | 2024-03-20 14:54 | XMS_ITS | Encounter Summary ---
Author Organization [facility] Address [address] [place] [address] Care Team Providers Care Asset Specialist Name Role Phone Linda Blancas MD Primary Care Provider [phone] Adolfo Carreno MD Unavailable [phone] Augustina Colin MD PhD Unavailable Unavailable Reason for Referral * Radiology Services (Routine) - Closed Specialty Diagnoses / Procedures Referred By Doug hearn Referred To Contact Diagnoses Screening mammogram, encounter for Procedures MA BREAST SCREENING Linda Robertson MD [address] [place] [address] Referral ID Status Reason Start Date Expiration Date Visits Re quested Visits Authorized [id number] Closed 08/15/2020 1 1 Reason for Visit * Radiology Services (Routine) - Closed Specialty Diagnoses / Procedures Referred By Doug hearn Referred To Contact Diagnoses Screening mammogram, encounter for Procedures MA BREAST SCREENING Linda Robertson MD [address] [place] [address] Referral ID Status Reason Start Date Expiration Date Visits Re quested Visits Authorized [id number] Closed 08/15/2020 1 1 Encounter Details Date Type Department Care Team (Latest Contact Info) Description 02/26/2021 10:28 EDT - 02/26/2021 23:59 EDT Hospital En[facility] Breast Imaging Mammography - Main [place] [address] [place] [address] Screening mammogram, encounter for Discharge Disposition: Home or Self Care Social [...] Exposure Response Date Recorded In the last month, have you been in contact with someone who was confirmed or suspected to have Coronavirus / COVID-19? No / Unsure 02/26/2021 10:28 EDT documented as of this encounter Last Filed Vital Signs Vital Sign Reading Time Taken Comments Blood Pressure - - Pulse - - Temperature - - Respiratory Rate - - Oxygen Saturation - - Inhaled Oxygen Concentration - - Weight - - Height 156.2 cm (5' 1.5) 02/26/2021 1035 EDT Body Mass Index - - documented in [...] 2 Tablets by mouth as needed. 12/07/2023 mv-mn/C/glutamin/lysin/ fcyb832 (AIRBORNE, ASCORBATE SODIUM, ORAL) Take by mouth as needed. 12/14/2023 omeprazole (PRILOSEC) 20 mg capsule Take 1 Capsule by mouth daily. 03/28/2023 venlafaxine (EFFEXOR-XR) 150 mg XR capsule Take [...] EDT Appointment [facility] Interventional Radiology Unit [address] [place] [address] [phone] 04/02/2024 15:15 EDT Office Visit [facility] Surgical Oncology - [facility] [address] [place], [place] [address] Adolfo Carreno MD 111 [facility], Level [address] [place] [phone] 04/05/2024 9:30 EDT Telemedicine [facility] - [facility] Palliative Care Services [address] [place] [address] [phone] Chichi Woods MD [address] [place] [address] [phone] 04/11/2024 15:00 EDT Telemedicine [facility] Hematology & Oncology - [address] [phone] Alisson Carreon MD [address] [place] [address] [address] [place] [phone] 04/13/2024 13:30 EDT Appointment [facility] Hematology & Oncology - [address] [address] 04/13/2024 14:00 EDT Appointment [facility] Hematology & Oncology [address] [address] 04/16/2024 10:00 EST Telemedicine [facility] Palliative Care Services [address] [place] [address] [phone] Chichi Woods MD [address] [place] [address] [phone] 04/24/2024 9:00 EST Appointment [facility] Radiology CT Outpatient - [address] [phone] 04/24/2024 11:00 EST Appointment [facility] Breast Imaging - [address] [address] 04/27/2024 12:00 EST Appointment [facility] Hematology & Oncology - [address] [phone] 05/02/2024 15:00 EST Telemedicine [facility] Hematology & Oncology [address] [phone] Alisson Carreon MD 111 [facility], Level [address] [place] [phone] 05/04/2024 10:15 EST Ancillary Procedure [facility] Cardiology - [address] [place] [address] 05/04/2024 11:30 EST Appointment [facility] Hematology & Oncology [address] [phone] 05/04/2024 12:00 EST Appointment [facility] Hematology & Oncology [address] [phone] 06/12/2024 13:00 EST Appointment [facility] Radiology CT - [address] [phone] documented as of this encounter Procedures Procedure Name Priority Date/Time Associated Diagnosis Comments MA BREAST SCREENING ESTEVAN LEFT Routine 02/26/2021 10:48 EDT Screening mammogram, encounter for documented in this encounter Results * MA BREAST SCREENING ESTEVAN LEFT (02/26/2021 10:48 EDT) Anatomical Region Laterality Modality Breast Left Mammography 02/27/2021 14:0 1 EDT Impressions 02/27/2021 14:01 EDT Negative, no evidence of malignancy. RECOMMENDATION: Routine screening mammography is recommended. OVERALL ASSESSMENT: BI-RADS 2: Benign These results will be communicated to your patient via a lay letter from Radiology. If any additional imaging is needed we will contact your patient directly. Narrative 02/27/2021 14:01 EDT MA BREAST SCREENING ESTEVAN LEFT ??02/26/2021 10:30 AM History: routine Comparison: ??Comparison has been made to previous images. Technique: Routine 3D tomosynthesis with synthesized 2D views with CAD Left Breast Composition: There are scattered areas of fibroglandular density. Left Breast Findings: No significant masses, calcifications or other abnormalities are seen. There is an intact appearing retropectoral silicone implant. Procedure Note Tylor Williamson MD - 02/27/2021 MA BREAST SCREENING ESTEVAN LEFT 02/26/2021 10:30 AM History: routine Comparison: Comparison has been made to previous images. Technique: Routine 3D tomosynthesis with synthesized 2D views with CAD Left Breast Composition: There are scattered areas of fibroglandulardensity. Left Breast Findings: No significant masses, calcifications or otherabnormalities are seen. There is an intact appearing retropectoralsilicone implant. IMPRESSION Negative, no evidence of malignancy. RECOMMENDATION: Routine screening mammography is recommended. OVERALL ASSESSMENT: BI-RADS 2: Benign These results will be communicated to your patient via a lay letter fromRadiology. If any additional imaging is needed we will contact yourpatient directly. Linda Blancas MD IMG MAMMOGRAPHY JAIMEE ACOSTA documented in this encounter Visit Diagnoses Diagnosis Screening mammogram, encounter for documented in this encounter Care Teams Asset Specialist Relationship Specialty Start Date End Date Linda Blancas MD [facility] [address] [place] [address] PCP - General 01/06/11 Adolfo Carreno MD [address] [place] [address] 2 [place] [phone] General Surgery 04/26/19 Augustina Colin MD PhD [address] [place] [address] 2 [place] [phone] Medical Oncology 04/26/19 documented as of this encounter
--- OUTSIDE RECORDS SUMMARY | 2024-03-20 14:54 | XMS_ITS | Encounter Summary ---
Author Organization [facility] Address [address] [place] [address] Care Team Providers Care Direct Sales Representative Name Role Phone Linda Blancas MD Primary Care Provider [phone] Adolfo Carreno MD Unavailable [phone] Augustina Colin MD PhD Unavailable Unavailable Encounter Details Date Type Department Care Team (Late st Contact Info) Description 03/03/2021 Transcribe Orders [facility] Endocrinology - [address] [address] Deysi Major MA Social History Tobacco Use Types Packs/Day Years [...] 10:28 EDT documented as of this encounter Functional [...] Appointment [facility] Interventional Radiology Unit [address] [place] [address] [phone] 04/02/2024 15:15 EDT Office Visit [facility] Surgical Oncology - [address] [phone] Adolfo Carreno MD [address] [place] [address] 2 [place] [phone] 04/05/2024 9:30 EDT Telemedicine [facility] - [facility] Palliative Care Services [address] [place] [address] [phone] Chichi Woods MD [address] [place] [address] [phone] 04/11/2024 15:00 EDT Telemedicine [facility] Hematology & Oncology [address] [phone] Alisson Carreon MD [address] [place] [address] [phone] 04/13/2024 13:30 EDT Appointment [facility] Hematology & Oncology [address] [phone] 04/13/2024 14:00 EDT Appointment [facility] Hematology & Oncology - [address] [address] 04/16/2024 10:00 EST Telemedicine [facility] - [facility] Palliative Care Services [address] [place] [address] Chichi Woods MD [address] [place] [address], [address] [phone] 04/24/2024 9:00 EST Appointment [facility] Radiology CT Outpatient - [address] 912101 04/24/2024 11:00 EST Appointment [facility] Breast Imaging - [address] [address] 04/27/2024 12:00 EST Appointment [facility] Hematology & Oncology - [address] [address] 05/02/2024 15:00 EST Telemedicine [facility] Hematology & Oncology - [address] [phone] Alisson Carreon MD [address] [place] [address], [facility], Level 2 [place] [phone] 05/04/2024 10:15 EST Ancillary Procedure [facility] Cardiology [place] [address] 05/04/2024 11:30 EST Appointment [facility] Hematology & Oncology - [address] [address] 05/04/2024 12:00 EST Appointment [facility] Hematology & Oncology - [address] [address] 06/12/2024 13:00 EST [facility] Rad[facility] - [address] [address] documented as of this encounter Visit Diagnoses Not on filedocumented in this encounter Care Teams Direct Sales Representative Relationship Specialty Start Date End Date Linda Blancas MD [facility] [address] [place] [address] PCP - General 01/06/11 Adolfo Carreno MD [address] [place] [address] [phone] General Surgery 04/26/19 Augustina Colin MD PhD [address] [place] [phone] Medical Oncology 04/26/19 documented as of this encounter
--- OUTSIDE RECORDS SUMMARY | 2024-03-20 14:54 | XMS_ITS | Encounter Summary ---
Author Organization [facility] Address [address] [place] [address] Care Team Providers Care Regional Construction Manager Name Role Phone Linda Blancas MD Primary Care Provider [phone] Adolfo Carreno MD Unavailable [phone] Augustina Colin MD PhD Unavailable Unavailable Reason for Referral * Radiology Services (Routine) - Closed Specialty Diagnoses / Procedures Referred By Contac t Referred To Contact Radiology Diagnoses Malignant neoplasm of right female breast, unspecified estrogen receptor status, unspecified site of breast ([facility]) Procedures MR ABDOMEN W WO CONTRAST Augustina Colin MD PhD Referral ID Status Reason Start Date Expiration Date Visits Re quested Visits Authorized [id number] Closed 02/20/2021 08/19/2021 1 1 Reason for Visit * Radiology Services (Routine) - Closed Specialty Diagnoses / Procedures Referred By Contac t Referred To Contact Radiology Diagnoses Malignant neoplasm of right female breast, unspecified estrogen receptor status, unspecified site of breast ([facility]) Procedures MR ABDOMEN W WO CONTRAST Augustina Colin MD PhD Referral ID Status Reason Start Date Expiration Date Visits Re quested Visits Authorized [id number] Closed 02/20/2021 08/19/2021 1 1 Encounter Details Date Type Department Care Team (Latest Contact Info) Description 03/02/2021 13:24 EDT - 03/02/2021 23:59 EDT Hospital Encounter [facility] MRI [address] [place], [place] [id number] Malignant neoplasm of right female breast, unspecified estrogen receptor status, unspecified site of breast ([facility]) Discharge Disposition: Home or Self [...] Tablets by mouth as needed. 12/07/2023 mv-mn/C/glutamin/lysin/ [id number] (AIR[place]ORNE, ASCORBATE SODIUM, ORAL) Take by mouth [...] Description 04/02/2024 10:30 EDT Appointment [facility] Interventional Radiology Unit [address] [place], [place] [phone] 04/02/2024 15:15 EDT Office Visit [facility] Surgical Oncology - [facility] [address] [place], [place] 226601 Adolfo Carreno MD [address] [facility], Level 2 [place] [phone] 04/05/2024 9:30 EDT Telemedicine [facility] - [facility] Palliative Care Services [address] [place], [place] 121131 Chichi Woods MD [address] [place] [address] 262 [place] [phone] 04/11/2024 15:00 EDT Telemedicine [facility] Hematology & Oncology - [address] [phone] Alisson Carreon MD [address] [place] [address] 2 [place] [phone] 04/13/2024 13:30 EDT Appointment [facility] Hematology & Oncology - [address] [phone] 04/13/2024 14:00 EDT Appointment [facility] Hematology & Oncology [address] [phone] 04/16/2024 10:00 EST Telemedicine [facility] - [facility] Palliative Care Services [address] [place] [address] 26[address] Chichi Woods MD [address] [place] [address] [phone] 04/24/2024 9:00 EST Appointment [facility] Radiology CT Outpatient - [address] [id number] 04/24/2024 11:00 EST Appointment [facility] Breast Imaging - [address] [phone] 04/27/2024 12:00 EST Appointment [facility] Hematology & Oncology - [address] [id number] 05/02/2024 15:00 EST Telemedicine [facility] Hematology & Oncology - [address] [phone] Alisson Carreon MD [address] [place] [address] 2 [place] [phone] 05/04/2024 10:15 EST Ancillary Procedure [facility] Cardiology - [address] [place] [address] 05/04/2024 11:30 EST Appointment [facility] Hematology & Oncology - [address] [id number] 05/04/2024 12:00 EST Appointment [facility] Hematology & Oncology - [address] 499021 06/12/2024 13:00 EST Appointment [facility] Radiology CT - [address] 371021 documented as of this encounter Procedures Procedure Name Priority Date/Time Associated Diagnosis Comments MR ABDOMEN W WO CONTRAST Routine 03/02/2021 14:09 EDT Malignant neoplasm of right female breast, unspecified estrogen receptor status, unspecified site of breast (HCC-CMS) documented in this encounter Results * MR ABDOMEN W WO CONTRAST (03/02/2021 14:09 EDT) Anatomical Region Laterality Modality Body, Abdomen Magnetic Resonan ce 03/02/2021 16:1 1 EDT Impressions 03/02/2021 16:11 EDT Slightly enlarging pre-existing and punctate new hepatic metastases, as above. Narrative 03/02/2021 16:11 EDT MR ABDOMEN W WO CONTRAST ??03/02/2021 1:30 PM Signs and Symptoms/Comments: ?? pt w/ possible liver mets; Liver mets suspected, post treatment, monitoring Technique: Ni-xts-kln-of-phase, T2-weighted, diffusion weighted images were followed by dynamic gadolinium enhanced T1 fat-suppressed gradient echo images of the abdomen. Subtraction imaging performed. Comparison: November 24, 2020 Findings: Lower chest: Bilateral breast implants. Hepatobiliary: Gallbladder and biliary tree are unremarkable. Multiple hypoenhancing mildly T2 hyperintense hepatic lesions are redemonstrated, more conspicuous than on prior examination. These of also increased in size on the diffusion weighted series, where they are most conspicuous. For example: Segment 2 lesion on B800 series image 204 measures 1.3 cm long axis, previously measured 0.6 cm. Segment 8 lesion on the B800 series image 144 measures 1 cm long axis, previously measured 0.6 cm. There is a new punctate segment 8 lesion on B800 series image 120 measuring 0.2 cm. There is a new punctate segment 6/7 lesion on B800 series image 204 measuring 0.1 cm. Spleen, pancreas, adrenal glands: No suspicious lesion. Kidneys, proximal ureters: Punctate bilateral renal cysts. No suspicious renal lesion. No hydronephrosis. Bowel: No obstruction or acute inflammatory changes. Peritoneal cavity: No ascites. Lymphovascular: Aorta is normal in caliber. No pathologically enlarged lymph nodes. Abdominal wall: No bowel containing hernia. Musculoskeletal: Posterior fusion hardware at L3-S1. No discrete osseous lesion identified. Localizer: No additional findings. Procedure Note Richard Antonio MD - 03/02/2021 MR ABDOMEN W WO CONTRAST 03/02/2021 1:30 PM Signs and Symptoms/Comments: pt w/ possible liver mets; Liver mets suspected, post treatment,monitoring Technique: Et-yfv-zjq-of-phase, T2-weighted, diffusion weighted images were followedby dynamic gadolinium enhanced T1 fat-suppressed gradient echo images ofthe abdomen. Subtraction imaging performed. Comparison: November 24, 2020 Findings: Lower chest: Bilateral breast implants. Hepatobiliary: Gallbladder and biliary tree are unremarkable. Multiplehypoenhancing mildly T2 hyperintense hepatic lesions are redemonstrated,more conspicuous than on prior examination. These of also increased insize on the diffusion weighted series, where they are most conspicuous.For example: Segment 2 lesion on B800 series image 204 measures 1.3 cm long axis,previously measured 0.6 cm. Segment 8 lesion on the B800 series image 144 measures 1 cm long axis,previously measured 0.6 cm. There is a new punctate segment 8 lesion on B800 series image 120measuring 0.2 cm. There is a new punctate segment 6/7 lesion on B800 series image 204measuring 0.1 cm. Spleen, pancreas, adrenal glands: No suspicious lesion. Kidneys, proximal ureters: Punctate bilateral renal cysts. No suspiciousrenal lesion. No hydronephrosis. Bowel: No obstruction or acute inflammatory changes. Peritoneal cavity: No ascites. Lymphovascular: Aorta is normal in caliber. No pathologically enlargedlymph nodes. Abdominal wall: No bowel containing hernia. Musculoskeletal: Posterior fusion hardware at L3-S1. No discrete osseouslesion identified. Localizer: No additional findings. IMPRESSION Slightly enlarging pre-existing and punctate new hepatic metastases, asabove. Augustina Colin MD PhD IMG MRI ORDERABLES documented in this encounter Visit Diagnoses Diagnosis Malignant neoplasm of right female breast, unspecified estrogen receptor status, unspecified site of breast (HCC-CMS) documented in this encounter Administered Medications Inactive Administered Medications - up to 3 most recent administrations Medication Order MAR Action Action Date Dose Rate Site gadoterate meglumine solution 15 mL 15 mL, intravenous, Once in imaging, 1 dose, Starting on 03/02/21 at 1409, Until Tue03/02/21 at 1410, Routine Given 03/02/2021 14:10 EDT 12 mL documented in this encounter Care Teams Regional Construction Manager Relationship Specialty Start Date End Date Linda Blancas MD [facility] [address] [place] [address] PCP - General 01/06/11 Adolfo Carreno MD [address] [place] [address] [phone] General Surgery 04/26/19 Augustina Colin MD PhD [address] [place] [phone] Medical Oncology 04/26/19 documented as of this encounter
--- OUTSIDE RECORDS SUMMARY | 2024-03-20 14:54 | XMS_ITS | Encounter Summary ---
Author Organization [facility] Address [address] [place] [address] Care Team Providers Care Surgical Clinical Reviewer Name Role Phone Linda Blancas MD Primary Care Provider [phone] Adolfo Carreno MD Unavailable [phone] Augustina Colin MD PhD Unavailable Unavailable Encounter Details Date Type Department Care Team (Late st Contact Info) Description 03/20/2021 Orders Only [facility] Hematology & Oncology - [facility] [address], [place] 309041 Quita Rob RN Social History Tobacco Use [...] [facility] Interventional Radiology Unit [address] [place] [address] [phone] 04/02/2024 15:15 EDT Office Visit [facility] Surgical Oncology - [address] 301041 Adolfo Carreno MD [address] [place] [address] 2 [place] [phone] 04/05/2024 9:30 EDT Telemedicine [facility] - [facility] Palliative Care Services [address] [place] [address] [phone] Chichi Woods MD [address] [place] [address], [address] [phone] 04/11/2024 15:00 EDT Telemedicine [facility] Hematology & Oncology [address] [phone] Alisson Carreon MD [address] [place] [address] 2 [place] [phone] 04/13/2024 13:30 EDT Appointment [facility] Hematology & Oncology [address] [address] 04/13/2024 14:00 EDT Appointment [facility] Hematology & Oncology - [address] [address] 04/16/2024 10:00 EST Telemedicine [facility] - [facility] Palliative Care Services [address] [place] [address] Chichi Woods MD [address] [place] [address], [address] [phone] 04/24/2024 9:00 EST Appointment [facility] Radiology CT Outpatient - [address] 340651 04/24/2024 11:00 EST Appointment [facility] Breast Imaging - [facility] [address] 425391 04/27/2024 12:00 EST Appointment [facility] Hematology & Oncology - [address] 038811 05/02/2024 15:00 EST Telemedicine [facility] Hematology & Oncology - [address] [phone] Alisson Carreon MD [address] [place] [address], [facility] 2 [place] [phone] 05/04/2024 10:15 EST Ancillary Procedure [facility] Cardiology - [place] [place] [address] 05/04/2024 11:30 EST Appointment [facility] Hematology & Oncology - [address] [address] 05/04/2024 12:00 EST Appointment [facility] Hematology & Oncology - [address] 837871 06/12/2024 13:00 [facility] Rad[facility] - [address] [address] documented as of this encounter Visit Diagnoses Not on filedocumented in this encounter Care Teams Surgical Clinical Reviewer Relationship Specialty Start Date End Date Linda Blancas MD [facility] [address] [place] [address] PCP - General 01/06/11 Adolfo Carreno MD [address] [place] [address] [phone] General Surgery 04/26/19 Augustina Colin MD PhD [address] [place] [phone] Medical Oncology 04/26/19 documented as of this encounter
--- OUTSIDE RECORDS SUMMARY | 2024-03-20 14:54 | XMS_ITS | Encounter Summary ---
Author Organization [facility] Address [address] [place] [address] Care Team Providers Care Mica Inspector Name Role Phone Linda Blancas MD Primary Care Provider [phone] Adolfo Carreno MD Unavailable [phone] Augustina Colin MD PhD Unavailable Unavailable Encounter Details Date Type Department Care Team (Late st Contact Info) Description 03/20/2021 Orders Only [facility] Hematology & Oncology - [facility] [address] [place] [address] Quita Rob RN Metastatic breast cancer (HCC-CMS) (HCC) (HCC-CMS) [...] [facility] Interventional Radiology Unit [address] [place] [address] [phone] 04/02/2024 15:[address] [facility] Surgical Oncology - [address] [phone] Adolfo Carreno MD 111 [facility], [facility] 2 [place] [phone] 04/05/2024 9:[address] [facility] - [facility] Palliative Care Services [address] [place], [place] [phone] Chichi Woods MD [address] [place] [address] [phone] 04/11/2024 15:00 EDT Telemedicine [facility] Hematology & Oncology - [facility] [address] [place], [place] [phone] Alisson Carreon MD [address] [place] [address], [facility] 2 [place] [phone] 04/13/2024 13:30 EDT Appointment [facility] Hematology & Oncology - [address] 799091 04/13/2024 14:00 EDT Appointment [facility] Hematology & Oncology [address] [phone] 04/16/2024 10:[address] [facility] - [facility] Palliative Care Services [address] [place] [address] [phone] Chichi Woods MD [address] [place] [address], [address] [phone] 04/24/2024 9:00 EST Appointment [facility] Radiology CT Outpatient - [address] [id number] 04/24/2024 11:[address] [facility] Breast Imaging - [facility] S [address] [place], [place] 621411 04/27/2024 12:00 EST Appointment [facility] Hematology & Oncology - [address] 284601 05/02/2024 15:00 EST Telemedicine [facility] Hematology & Oncology [address] [phone] Alisson Carreon MD [address] [place] [address], [facility], Level [address] [place] [phone] 05/04/2024 10:[address] [facility] Cardiology [place] [address] 05/04/2024 11:30 EST Appointment [facility] Hematology & Oncology [address] 544381 05/04/2024 12:00 EST Appointment [facility] Hematology & Oncology - [address] 595141 06/12/2024 13:00 [facility] Radiology CT - [facility] [address] [place], [place] 167491 documented as of this encounter Visit Diagnoses Diagnosis Metastatic breast cancer- Primary documented in this encounter Care Teams Mica Inspector Relationship Specialty Start Date End Date Linda Blancas MD [facility] [address] [place] [address] PCP - General 01/06/11 Adolfo Carreno MD [address] [place] [address] 2 [place] [phone] General Surgery 04/26/19 Augustina Colin MD PhD [address] [place] [address] 2 [place] [phone] Medical Oncology 04/26/19 documented as of this encounter
--- OUTSIDE RECORDS SUMMARY | 2024-03-20 14:54 | XMS_ITS | Encounter Summary ---
Author Organization [facility] Address [address] [place] [address] Care Team Providers Care Electric Motor Mechanic Name Role Phone Linda Blancas MD Primary Care Provider Adolfo Carreno MD Unavailable [phone] Augustina Colin MD PhD Unavailable Unavailable Reason for Visit * Reason Onset Date Comments Appointment Related 01/27/2021 Encounter Details Date Type Department Care Team (Late st Contact Info) Description 01/27/2021 Telephone [facility] [address] [place], [place] [phone] Augustina Colin, PhD Appointment Related Social History [...] have Coronavirus / COVID-19? No / Unsure 01/22/2021 14:28 EDT documented as of this encounter Functional [...] encounter Miscellaneous Notes * Telephone Encounter - Yola Hoskins - 01/27/2021 0731 EDT Screening Questions prior to Med Release 1. Do you have a fever or have had a fever of 100.4 degrees F. in the last 24 hours? NO 2. Are you taking any medication for a recent infection? NO 3. If you have a recent illness, or changes in your health since your last infusion? And is your ordering provider aware of this? NO 4. Have you ever had a reaction to your medication or any medication? NO 5. (for Remicade, Entyvio, Renflexis, Rituximab, Ocrevus, pts) Have you had any recent surgeries in the last month or have any planned in the near future? NO documented in this encounter Plan of Treatment Upcoming Encounters Date Type Department Care Team (Late st Contact Info) Description 04/02/2024 10:30 EDT Appointment [facility] Interventional Radiology Unit [address] [place] [address] 999021 04/02/2024 15:15 EDT Office Visit [facility] Surgical Oncology - [address] [phone] Adolfo Carreno MD 111 [facility], Level 2 [place] [phone] 04/05/2024 9:30 EDT Telemedicine [facility] - [facility] Palliative Care Services [address] [place] [address] 390991 Chichi Woods MD [address] [place] [address] [phone] 04/11/2024 15:00 EDT Telemedicine [facility] Hematology & Oncology [address] 149721 Alisson Carreon MD [address] [place] [address], Level 2 [place] [phone] 04/13/2024 13:30 EDT Appointment [facility] Hematology & Oncology [address] [phone] 04/13/2024 14:00 EDT Appointment [facility] Hematology & Oncology [address] 979121 04/16/2024 10:00 EST Telemedicine [facility] - [facility] Palliative Care Services [address] [place] [address] 273281 Chichi Woods MD [address] [place] [address] [phone] 04/24/2024 9:00 EST Appointment [facility] Radiology CT Outpatient - [address] 273261 04/24/2024 11:00 EST Appointment [facility] Breast Imaging - [address] 419121 04/27/2024 12:00 EST Appointment [facility] Hematology & Oncology - [address] [phone] 05/02/2024 15:00 EST Telemedicine [facility] Hematology & Oncology - [address] 975231 Alisson Carreon MD [address] [place] [address] 2 [place] [phone] 05/04/2024 10:15 EST Ancillary Procedure [facility] Cardiology - [address] [place], [place] [phone] 05/04/2024 11:30 EST Appointment [facility] Hematology & Oncology [address] 244161 05/04/2024 12:00 EST Appointment [facility] Hematology & Oncology [address] [phone] 06/12/2024 13:00 EST Appointment [facility] Radiology CT - [address] [phone] documented as of this encounter Visit Diagnoses Not on filedocumented in this encounter Care Teams Electric Motor Mechanic Relationship Specialty Start Date End Date Linda Blancas MD [facility] [address] [place], [place] 8353[address] PCP - General 01/06/11 Adolfo Carreno MD [address] [place] [address] [phone] General Surgery 04/26/19 Augustina Colin MD PhD [address] [place] [phone] Medical Oncology 04/26/19 documented as of this encounter
--- OUTSIDE RECORDS SUMMARY | 2024-03-20 14:54 | XMS_ITS | Encounter Summary ---
Author Organization [facility] Address [address] [place] [address] Care Team Providers Care Endodontic Assistant Name Role Phone Linda Blancas MD Primary Care Provider [phone] Adolfo Carreno MD Unavailable [phone] Augustina Colin MD PhD Unavailable Unavailable Reason for Visit * Reason Onset Date Comments Prior Auth, Medication 03/26/2021 Ibrance 1 00 mg Encounter Details Date Type Department Care Team (Late st Contact Info) Description 03/26/2021 Telephone [facility] Hematology & Oncology - Main [place] [address] [place] [address] Augustina Colin, PhD Prior Auth, Medication (Ibrance 100 mg ) Social History Tobacco Use Types Packs/Day [...] before restarting. 21 capsule 3 03/31/2021 08/03/2021 documented in this encounter Progress Notes * Uche Zuniga RPH - 06/08/2021 1049 EST [facility] Oncology Medication Information Enrollment Information [facility] Enrollment Date: 04/01/21 Referral Date: 03/20/21 Referral Source: EP2 Hem/Onc First Ship Date: 04/10/21 Medication Information Medication Name: Ibrance Prescribed Strength: 100 mg Primary ICD 10 Code: C50.919 (metastatic breast cancer) Secondary ICD 10 Code: None noted Previous therapies: Verzenio Benefits Information Primary Payer Name: [facility] Primary Insurance Type: Commercial Secondary Payer Name: N/A Prior Authorization Required: YES/NO: No PA Submission Date: 03/26/21 PA Completion Date: 03/31/21 Notes: $0 per 28 days * Uche Zuniga RPH - 03/31/2021 1511 EDT Prior Authorization Not Required Medication: Ibrance 100 mg Insurance Response: No prior authorization required Pharmacy: [facility] Notes: $0 copay per 28 days * Uche Zuniga [facility] - 03/26/2021 0945 EDT Prior Authorization Submission Process Medication: Ibrance 100 mg (every day x 21 days on 7 days off) Insurance: MVP Date PA Request Received: 03/20/21 PA Submission Date: 03/26/21 [facility] Ferrell: [id number] Submitted by: Uche Zuniga Phone: [phone] documented in this encounter Miscellaneous Notes * Telephone Encounter - Maria Guadalupe Hill RN - 03/31/2021 1550 EDT Pended rx for Ibrance to Dr. Colin documented in this encounter Plan of Treatment Upcoming Encounters Date Type Department Care Team (Late st Contact Info) Description 04/02/2024 10:30 EDT Appointment [facility] Interventional Radiology Unit [address] [place] [address] 04/02/2024 15:15 EDT Office Visit [facility] Surgical Oncology - [address] [phone] Adolfo Carreno MD 111 [facility] Level 2 [place] [phone] 04/05/2024 9:30 EDT Telemedicine [facility] - [facility] Palliative Care Services [address], [place] [phone] Chichi Woods MD [address] [phone] 04/11/2024 15:00 EDT Telemedicine [facility] Hematology & Oncology - [facility] [address], [place] [address] Alisson Carreon MD [address] [place] [address], [facility] 2 [place] [phone] 04/13/2024 13:30 EDT Appointment [facility] Hematology & Oncology - [address] [phone] 04/13/2024 14:00 EDT Appointment [facility] Hematology & Oncology - [address] [phone] 04/16/2024 10:00 EST Telemedicine [facility] - [facility] Palliative Care Services [address] [place] [address] 535391 Chichi Woods MD [address] [place] [address], [address] [phone] 04/24/2024 9:00 EST Appointment [facility] Radiology CT Outpatient - [address] [id number] 04/24/2024 11:00 EST Appointment [facility] Breast Imaging - [facility] S [address] 810381 04/27/2024 12:00 EST Appointment [facility] Hematology & Oncology - [address] [phone] 05/02/2024 15:00 EST Telemedicine [facility] Hematology & Oncology - [address] 079461 Alisson Carreon MD [address] [place] [address], [facility] 2 [place] [phone] 05/04/2024 10:15 EST Ancillary Procedure [facility] Cardiology - [address] [place], [place] [phone] 05/04/2024 11:30 EST Appointment [facility] Hematology & Oncology - [address] [address] 05/04/2024 12:00 EST Appointment [facility] Hematology & Oncology - [address] [address] 06/12/2024 13:00 EST Appointment [facility] Radiology CT - [address] [address] documented as of this encounter Visit Diagnoses Not on filedocumented in this encounter Care Teams Endodontic Assistant Relationship Specialty Start Date End Date Linda Blancas MD [facility] [address] [place] [address] PCP - General 01/06/11 Adolfo Carreno MD [address] [place] [phone] General Surgery 04/26/19 Augustina Colin MD PhD [address] [place] [phone] Medical Oncology 04/26/19 documented as of this encounter
--- OUTSIDE RECORDS SUMMARY | 2024-03-20 14:54 | XMS_ITS | Encounter Summary ---
Author Organization [facility] Address [address] [place] [address] Care Team Providers Care Jewel Gauger Name Role Phone Linda Blancas MD Primary Care Provider [phone] Adolfo Carreno MD Unavailable [phone] Augustina Colin MD PhD Unavailable Unavailable Encounter Details Date Type Department Care Team (Late st Contact Info) Description 02/25/2021 Orders Only [facility] Hematology & Oncology - [facility] [address] [place] [address] Hetal Tan, RN [address] [place] [address] Social History Tobacco Use Types Packs/Day Years [...] [facility] Inter[facility] [address] [place] [address] [phone] 04/02/2024 15:15 EDT Office Visit [facility] Surgical Oncology - [address] [phone] Adolfo Carreno MD [address] [place] [phone] 04/05/2024 9:30 EDT Telemedicine [facility] - [facility] Palliative Care Services [address] [place] [address] [phone] Chichi Woods MD [address] [place] [phone] 04/11/2024 15:00 EDT Telemedicine [facility] Hematology & Oncology [address] 239931 Alisson Carreon MD [address] [place] [address] [phone] 04/13/2024 13:30 EDT Appointment [facility] Hematology & Oncology [address] 062631 04/13/2024 14:00 EDT Appointment [facility] Hematology & Oncology [address] 182041 04/16/2024 10:00 EST Telemedicine [facility] - [facility] Palliative Care Services [address] [place] [address] [phone] Chichi Woods MD [address] [place] [address], [address] [phone] 04/24/2024 9:00 EST Appointment [facility] Radiology CT Outpatient - [address] 524151 04/24/2024 11:00 EST Appointment [facility] Breast Imaging - [facility] S [place] 1 [place], [place] 635931 04/27/2024 12:00 EST Appointment [facility] Hematology & Oncology - [address] [phone] 05/02/2024 15:00 EST Telemedicine [facility] Hematology & Oncology - [address] [phone] Alisson Carreon MD [address] [place] [address], Level 2 [place] [phone] 05/04/2024 10:15 EST Ancillary Procedure [facility] Cardiology - [place] [address] 05/04/2024 11:30 EST Appointment [facility] Hematology & Oncology - [address] [id number] 05/04/2024 12:00 EST Appointment [facility] Hematology & Oncology [address] [phone] 06/12/2024 13:00 EST Appointment [facility] Radiology CT - [address] [phone] documented as of this encounter Visit Diagnoses Not on filedocumented in this encounter Care Teams Jewel Gauger Relationship Specialty Start Date End Date Linda Blancas MD [facility] [address] [place] [address] PCP - General 01/06/11 Adolfo Carreno MD [address] [place] [address], [facility] 2 [place] [phone] General Surgery 04/26/19 Augustina Colin MD PhD [address] [place] [address], [facility] 2 [place] [address] Medical Oncology 04/26/19 documented as of this encounter
--- OUTSIDE RECORDS SUMMARY | 2024-03-20 14:54 | XMS_ITS | Encounter Summary ---
Author Organization [facility] Address [address] [place] [address] Care Team Providers Care Environmental Sampler Name Role Phone Linda Blancas MD Primary Care Provider [phone] Adolfo Carreno MD Unavailable [phone] Augustina Colin MD PhD Unavailable Unavailable Encounter Details Date Type Department Care Team (Latest Contact Info) Description 02/26/2021 Travel Social History Tobacco Use Types Packs/Day [...] Info) Description 04/02/2024 10:30 EDT Appointment [facility] Interventional Radiology Unit [address] [place] [address] [phone] 04/02/2024 15:15 EDT Office Visit [facility] Surgical Oncology - [address] [phone] Adolfo Carreno MD [address] [place] [address] [phone] 04/05/2024 9:30 EDT Telemedicine [facility] - [facility] Palliative Care Services [address] [place] [address] [phone] Chichi Woods MD [address] [place] [address] [phone] 04/11/2024 15:00 EDT Telemedicine [facility] Hematology & Oncology [address] 568651 Alisson Carreon MD [address] [place] [address] [phone] 04/13/2024 13:30 EDT Appointment [facility] Hematology & Oncology [address] 438281 04/13/2024 14:00 EDT Appointment [facility] Hematology & Oncology [address] 255861 04/16/2024 10:00 EST Telemedicine [facility] - [facility] Palliative Care Services [address] [place] [address] [phone] Chichi Woods MD [address] [place] [address], [address] [phone] 04/24/2024 9:00 EST Appointment [facility] Radiology CT Outpatient - [address] [id number] 04/24/2024 11:00 EST Appointment [facility] Breast Imaging - [facility] 1 [place], [place] 414161 04/27/2024 12:00 EST Appointment [facility] Hematology & Oncology - [address] 084251 05/02/2024 15:00 EST Telemedicine [facility] Hematology & Oncology - [address] 180971 Alisson Carreon MD [address] [place] [address], Level 2 [place] [phone] 05/04/2024 10:15 EST Ancillary Procedure [facility] Cardiology [place] [address] 05/04/2024 11:30 EST Appointment [facility] Hematology & Oncology - [address] [phone] 05/04/2024 12:00 EST Appointment [facility] Hematology & Oncology [address] [phone] 06/12/2024 13:00 EST Appointment [facility] Radiology CT - [address] [phone] documented as of this encounter Visit Diagnoses Not on filedocumented in this encounter Care Teams Environmental Sampler Relationship Specialty Start Date End Date Linda Blancas MD [facility] [address] [place] [address] PCP - General 01/06/11 Adolfo Carreno MD [address] [place] [address], [facility] 2 [place] [phone] General Surgery 04/26/19 Augustina Colin MD PhD [address] [place] [address], [facility] 2 [place] [address] Medical Oncology 04/26/19 documented as of this encounter
--- OUTSIDE RECORDS SUMMARY | 2024-03-20 14:54 | XMS_ITS | Encounter Summary ---
Author Organization [facility] Address [address] [place] [address] Care Team Providers Care Lobster Fisherman Name Role Phone Linda Blancas MD Primary Care Provider [phone] Adolfo Carreno MD Unavailable [phone] Augustina Colin MD PhD Unavailable Unavailable Reason for Visit * Reason Comments Follow-up Encounter Details Date Type Department Care Team (Late st Contact Info) Description 03/02/2021 9:30 EDT Office Visit [facility] Surgical Oncology - [address] [phone] Adolfo Carreno MD [address] [place] [address], Level 2 [place] [phone] Routine cancer follow-up visit (Primary [...] Progress Notes * Adolfo Carreno MD - 03/02/2021 0930 EDT Sunshine Pleitez is a 60-year-old woman seen in follow-up for history of breast cancer. Patienthad a right total mastectomy with sentinel node biopsy and reconstruction some many years ago, she had a positive margin on the mastectomy site. No additional treatments were given the patient unfortunate developed a recurrence of disease in the mastectomy site at the same time was found to have distant metastatic disease. She was placed on endocrine therapy and responded underwent a subsequent excision of the recurrent disease in the mastectomy site with repeat reconstruction. She continues onendocrine therapy. Patient unfortunately developed a positive left neck lymph node that had not been seen before biopsy showed this to be recurrent disease. Her endocrine therapy was changed to Faslodex and abemaciclib. She had to stop the about the cycle because of significant diarrhea. Patient has been doing quite well but a recent MRI of the liver showed some enhancing lesions that might be recurrent disease as well. She is scheduled to get a repeat MRI today. Patient otherwise feeling well and has no new complaints. On exam today the patient is in no distress, there is no scleral icterus, there is no palpable cervical or supraclavicular lymph nodes. There is no palpable nodules in the thyroid gland, there is no carotid bruits or JVD noted. Lungs are clear to auscultation, heart has a regular rate and rhythm there is no S3-S4 murmurs noted. Breast exam reveals the mastectomy on the right with reconstruction and the implant on the left. Palpation of the right side reveals no palpable abnormality suspicious for recurrence, there is no palpable lymph nodes in the right axilla. The left breast has no discretepalpable abnormalities, there is no nipple discharge, there is no palpable lymph nodes in the axilla. There is no abdominal masses, no hepato or splenomegaly was noted. There is good range of motion of the upper extremities without edema in either side. Ultrasound evaluation was performed of the breast with a 15 to 6 MHz linear array ultrasound probe.On the right side the patient has no evidence of recurrent disease in the mastectomy site. There are no abnormal lymph nodes seen in the internal mammary or axillary region. The left side the implantwas a good position, there is no architectural changes, no solid or cystic abnormalities were seen in the breast tissue. There is no abnormal lymph nodes seen in the internal mammary or the axillary region. In the left neck in the mid jugular chain the lymph node that have been biopsied and is essentially unchanged compared to her previous ultrasound measures 7 x 4 x 13 mmThere is one other smalllymph node that seen just above the clavicle measuring about 4 mm that is uncertain if this was seen previously. Impression: Patient with recurrent breast cancer, question of new liver disease which is being evaluated later today with an MRI. The disease that recurred in her neck is fairly stable in appearance.We'll plan follow-up again with myself in 6 months. documented in this encounter Plan of Treatment Upcoming Encounters Date Type Department Care Team (Late st Contact Info) Description 04/02/2024 10:30 EDT Appointment [facility] Interventional Radiology Unit [address] [place] [address] [phone] 04/02/2024 15:15 EDT Office Visit [facility] Surgical Oncology - [address] [phone] Adolfo Carreno MD 111 [facility], [facility], Level 2 [place] [phone] 04/05/2024 9:30 EDT Telemedicine [facility] - [facility] Palliative Care Services [address] [place] [address] 288141 Chichi Woods MD [address] [place] [address] [phone] 04/11/2024 15:[address] [facility] Hematology & Oncology - [address] [phone] Alisson Carreon MD [address] [place] [address] Level 2 [place] [phone] 04/13/2024 13:[address] [facility] Hematology & Oncology - [address] [phone] 04/13/2024 14:[address] [facility] Hematology & Oncology [address] [phone] 04/16/2024 10:00 EST Telemedicine [facility] Palliative Care Services [address] [place] [address] [phone] Chichi Woods MD [address] [place] [address] [phone] 04/24/2024 9:00 EST Appointment [facility] Radiology CT Outpatient - [address] [id number] 04/24/2024 11:00 EST Appointment [facility] Breast Imaging - [facility] S [address] [address] 04/27/2024 12:[address] [facility] Hematology & Oncology - [address] [phone] 05/02/2024 15:[address] [facility] Hematology & Oncology [address] [address] Alisson Carreon MD [address] [place] [address] [phone] 05/04/2024 10:15 EST Ancillary Procedure [facility] Cardiology - [address] [place] [address] 05/04/2024 11:[address] [facility] Hematology & Oncology [address] 581121 05/04/2024 12:[address] [facility] Hematology & Oncology [address] [phone] 06/12/2024 13:00 EST Appointment [facility] Radiology CT - [address] [phone] documented as of this encounter Procedures Procedure Name Priority Date/Time Associated Diagnosis Comments ORDERS - SCANNED 03/12/2021 8:52 EDT documented in this encounter Results * ORDERS - SCANNED (03/12/2021 8:52 EDT) 03/12/2021 8:52 EDT Scan 2 Composite Mechanic ADMISSION ORDERABLE S documented in this encounter Visit Diagnoses Diagnosis Routine cancer follow-up visit- Primary Other follow-up examination Personal history of breast cancer Personal history of malignant neoplasm of breast documented in this encounter Care Teams Lobster Fisherman Relationship Specialty Start Date End Date Linda Blancas MD [address] [place] [address] 30 [place] [address] PCP - General 01/06/11 Adolfo Carreno MD [address] [place] [address] [phone] General Surgery 04/26/19 Augustina Colin MD PhD [address] [place] [address], [facility] 2 [place] [phone] Medical Oncology 04/26/19 documented as of this encounter
--- OUTSIDE RECORDS SUMMARY | 2024-03-20 14:54 | XMS_ITS | Encounter Summary ---
Author Organization [facility] Address [address] [place] [address] Care Team Providers Care Rock Breaker Name Role Phone Linda Blancas MD Primary Care Provider [phone] Adolfo Carreno MD Unavailable [phone] Augustina Colin MD PhD Unavailable Unavailable Encounter Details Date Type Department Care Team (Late st Contact Info) Description 03/19/[address] [facility] Radiology - Main [place] [address] [place], [place] 155191 Cassia Madrigal MD 111 [facility], Level 1 [place] [phone] Social History Tobacco Use Types [...] Appointment [facility] Interventional Radiology Unit [address] [place] [address] 04/02/2024 15:[address] [facility] Surgical Oncology - [facility] [address] [place], [place] 980291 Adolfo Carreno MD [address] [place] [address] 2 [place] [phone] 04/05/2024 9:30 EDT Telemedicine [facility] - [facility] Palliative Care Services [address] [place] [address] Chichi Woods MD [address] [place] [address], [address] [phone] 04/11/2024 15:00 EDT Telemedicine [facility] Hematology & Oncology - [address] 637051 Alisson Carreon MD [address] [place] [address] 2 [place] [phone] 04/13/2024 13:30 EDT Appointment [facility] Hematology & Oncology - [address] [address] 04/13/2024 14:00 EDT Appointment [facility] Hematology & Oncology [address] [address] 04/16/2024 10:00 EST Telemedicine [facility] - [facility] Palliative Care Services [address] [place] [address] [phone] Chichi Woods MD [address] [place] [address], [address] [phone] 04/24/2024 9:00 EST Appointment [facility] Radiology CT Outpatient - [address] [phone] 04/24/2024 11:[address] [facility] Breast Imaging - [facility] S [place] 1 [place], [place] 858001 04/27/2024 12:00 EST Appointment [facility] Hematology & Oncology - [address] 400261 05/02/2024 15:00 EST Telemedicine [facility] Hematology & Oncology [address] [phone] Alisson Carreon MD [address] [place] [address], [facility], Level 2 [place] [phone] 05/04/2024 10:[address] [facility] Cardiology - [place] [address] 05/04/2024 11:30 EST Appointment [facility] Hematology & Oncology - [address] [phone] 05/04/2024 12:00 EST Appointment [facility] Hematology & Oncology - [address] [phone] 06/12/2024 13:00 EST Appointment [facility] Radiology CT - [address] 345231 documented as of this encounter Visit Diagnoses Not on filedocumented in this encounter Care Teams Rock Breaker Relationship Specialty Start Date End Date Linda Blancas MD [facility] [address] [place], [place] 0[address]382 PCP - General 01/06/11 Adolfo Carreno MD [address] [place] [address] [phone] General Surgery 04/26/19 Augustina Colin MD PhD [address] [place] [address] 2 [place] [address] Medical Oncology 04/26/19 documented as of this encounter
--- OUTSIDE RECORDS SUMMARY | 2024-03-20 14:54 | XMS_ITS | Encounter Summary ---
Author Organization [facility] Address [address] [place] [address] Care Team Providers Care Pie Baker Name Role Phone Linda Blancas MD Primary Care Provider [phone] Adolfo Carreno MD Unavailable [phone] Augustina Colin MD PhD Unavailable Unavailable Reason for Visit * Reason Comments Breast Cancer * Radiology Services (Routine) - New Request Specialty Diagnoses / Procedures Referred By [facility] Referred To Contact Diagnoses Malignant neoplasm of right female breast, unspecified estrogen receptor status, unspecified site of breast ([facility]) Procedures DXA DUAL XRAY ABSORPTIOMETRY FOR BONE DENSITY ([facility] PERFOR[facility]) Augustina Colin MD PhD Referral ID Status Reason Start Date Expiration Date V isits Requested Visits Authorized [id number] New Request 11/27/2020 1 1 Encounter Details Date Type Department Care Team (Latest Contact Info) Description 03/02/2021 11:[address] [facility] Endocrinology - [address] [address] Awilda Riojas MD Malignant neoplasm of right female breast, unspecified estrogen receptor status, unspecified site of breast ([facility]); Post-menopausal; Osteoporosis screening; Encounter for monitoring bisphosphonate therapy Social History Tobacco Use Types Packs/Day Years [...] - Inhaled Oxygen Concentration - - Weight 61.9 kg (136 lb 7.4 oz) 03/02/2021 1125 E DT Height 156 cm (5' 1.42) 03/02/2021 1125 EDT Body Mass Index 25.44 03/02/2021 1125 EDT documented in this encounter Functional [...] as of this encounter Progress Notes * Chen Frazier - 03/02/2021 1120 EDT Procedure Date: 03/02/2021 Referring Physician: Augustina Colin MD Previous Scan Date: 01/26/2019 ABN Necessary: No There were no vitals taken for this visit. Done AP SPINE Yes FEMUR Yes TOTAL BODY FOREARM Yes, Lt LVA/VFA HEEL US PATIENT HISTORY: Patient Active Problem List Diagnosis ??? Papanicolaou [...] Breast lump ??? Metastatic breast cancer (HCC-CMS) ??? Malignant neoplasm of female breast (HCC-CMS) ??? Encounter for palliative care ??? Osteopenia ??? S/P breast reconstruction, right ??? Lipoma of back Past Medical History: Diagnosis Date ??? Acquired spondylolisthesis ??? Activity, other involving cardiorespiratory exercise snow shoeing ??? Allergy ??? Arthritis right big toe ??? Back pain spinal fussion no issues currently 08/25/20 ??? Breast cancer ([facility]) November 2003 DCIS - right breast ??? Breast cancer, right (HCC-CMS) ??? Depression 08/25/20 well controlled ??? Environmental allergies ??? Exercise involving walking ??? GERD (gastroesophageal reflux disease) well controlled 08/25/20 ??? 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 ??? History of general anesthesia ??? Lumbar radicular syndrome ? ? Nausea & vomiting ??? Numbness ??? Wears glasses Additional Comments: Previous/Prior Comparison? Yes Pharmacologic? No Osteoporosis Center Patient Information Ethnicity/Race: Nutrition and Habits: Do you consume dairy? Yes Number of servings per day? 1 Do you take calcium supplements? Yes Amount? 1250 mg daily Do you drink 3 or more alcoholic beverages daily? No Have you now or have you had in the past an eating disorder? No Do you or have you smoked in the last 6 months? No Family History: Did your mother or father have a hip fracture? No Do you have a parent or sibling who suffered a broken hip, shoulder, wrist or ribs after age 45? No Patient History-Medications: Have you taken any of the following medications or treatments. (Now or in the past)?: Steroid (prednisone, cortisone, Medrol) 5mg. or more for at least 3 months? No Thyroid medication for thyroid cancer suppression? No Anticonvulsants (phenytoin, Dilantin, phenobarbital) No GnRH Agonist (for endometriosis or prostate cancer, Example - Lupron) No Depo Povera (Current use) No Aromatase inhibitor: Letrozol (Femera), Anastrozole (arimidex), Exemestane (Aromasin) Yes, past stopped May 2020 TZD's for diabetes (Actos, Avandia) No Medical History: Have you had any of the following?: Hyperthyroidism (over active thyroid) No Hyperparathyroidism (over active parathyroid, high blood calcium) No Kidney failure No Rheumatoid arthritis No Seizure disorder (epilepsy) No Diabetes mellitus No Bariatric surgery/Gastric bypass No Back Surgery Yes, L3-S1 fusion Back X-ray Yes, LXR 02/2020 Fractures after age 40 No Area: Treatments: Alendronate (Fosamax) Never, Date stopped: Calcitonin (Miacalcin) Never, Date stopped: Denosumab (Prolia) Never, Date stopped: Ibandronate (Boniva) Past X 5 years , Date stopped: 2003 Pamidronate (Aredia) Never, Date stopped: Raloxifene (Evista) Never, Date stopped: Risendronate (Actonel) Never, Date stopped: Teriparatide (Forteo) Never, Date stopped: Zoledronic Acid (Reclast, Zomata) Present x , Date stopped: Other: Never, Date stopped: For Women Only: What was your age at menopause? 38-premature ovarian failure Are you taking estrogen now or within the past year? Past Oral HRT , Date stopped:2003 Have you been treated for breast cancer? Present/Past 02/2012 Comments: Lt forearm due to Spine HW CHEN FRAZIER 03/02/2021 7:31 documented in this encounter Plan of Treatment Upcoming Encounters Date Type Department Care Team (Late st Contact Info) Description 04/02/2024 10:[address] [facility] Interventional Radiology Unit [address] [place] [address] [phone] 04/02/2024 15:[address] [facility] Surgical Oncology - [address] [phone] Adolfo Carreno MD [address] [place] [address] 2 [place] [phone] 04/05/2024 9:30 EDT Telemedicine [facility] Palliative Care Services [address] [place] [address] [phone] Chichi Woods MD [address] [place] [address] [phone] 04/11/2024 15:00 EDT Telemedicine [facility] Hematology & Oncology - [address] [phone] Alisson Carreon MD [address] [place] [address] 2 [place] [phone] 04/13/2024 13:30 EDT Appointment [facility] Hematology & Oncology - [address] [phone] 04/13/2024 14:00 EDT Appointment [facility] Hematology & Oncology - [address] [phone] 04/16/2024 10:00 EST Telemedicine [facility] - [facility] Palliative Care Services [address] [place] [address] Chichi Woods MD [address] [place] [address] [phone] 04/24/2024 9:00 EST Appointment [facility] Radiology CT Outpatient - [address] [id number] 04/24/2024 11:[address] [facility] Breast Imaging - [address] [phone] 04/27/2024 12:00 EST Appointment [facility] Hematology & Oncology [address] [phone] 05/02/2024 15:00 EST Telemedicine [facility] Hematology & Oncology [address] [phone] Alisson Carreon MD [address] [place] [address], Level [address] [place] [phone] 05/04/2024 10:[address] [facility] Cardiology - [place] [address] 05/04/2024 11:30 EST Appointment [facility] Hematology & Oncology [address] [phone] 05/04/2024 12:00 EST Appointment [facility] Hematology & Oncology [address] [id number] 06/12/2024 13:00 EST Appointment [facility] Radiology CT - [address] [phone] documented as of this encounter Procedures Procedure Name Priority Date/Time Associated Diagnosis Comments DXA DUAL XRAY ABSORPTIOMETRY FOR BONE DENSITY ([facility] PERFORMED) Routine 03/03/2021 Malignant neoplasm of right female breast, unspecified estrogen receptor status, unspecified site of breast ([facility]) documented in this encounter Results * DXA DUAL XRAY ABSORPTIOMETRY FOR BONE DENSITY ([facility] PERFORMED) (03/03/2021) DEXA Bone Density DEXA Bone Density, External Anatomical Region Laterality Modality Other Augustina Colin MD PhD IMG DEXA ORDERABLES documented in this encounter Visit Diagnoses Diagnosis Malignant neoplasm of right female breast, unspecified estrogen receptor status, unspecified site of breast ([facility]) Post-menopausal Asymptomatic postmenopausal status (age-related) (natural) Osteoporosis screening Special screening for osteoporosis Encounter for monitoring bisphosphonate therapy Encounter for therapeutic drug monitoring documented in this encounter Care Teams Pie Baker Relationship Specialty Start Date End Date Linda Blancas MD [address] [place] [address] 30 [place] [address] PCP - General 01/06/11 Adolfo Carreno MD [address] [place] [phone] General Surgery 04/26/19 Augustina Colin MD PhD [address] [place] [phone] Medical Oncology 04/26/19 documented as of this encounter
--- OUTSIDE RECORDS SUMMARY | 2024-03-20 14:54 | XMS_ITS | Encounter Summary ---
Author Organization [facility] Address [address] [place] [address] Care Team Providers Care First Assist Name Role Phone Linda Blancas MD Primary Care Provider [phone] Adolfo Carreno MD Unavailable [phone] Augustina Colin MD PhD Unavailable Unavailable Encounter Details Date Type Department Care Team (Late st Contact Info) Description 03/19/2021 Orders Only [facility] Radiology - [place] [address] [place] [address] Pretty Thornton MD [address] [place] [phone] Social History Tobacco Use Types Packs/Day Years [...] Appointment [facility] Interventional Radiology Unit [address] [place] [address] [phone] 04/02/2024 15:15 EDT Office Visit [facility] Surgical Oncology - [address] [phone] Adolfo Carreno MD [address] [place] [address] 2 [place] [phone] 04/05/2024 9:30 EDT Telemedicine [facility] - [facility] Palliative Care Services [address] [place], [place] [phone] Chichi Woods MD [address] [place] [address], [address] [phone] 04/11/2024 15:00 EDT Telemedicine [facility] Hematology & Oncology - [address] [phone] Alisson Carreon MD [address] [place] [address] 2 [place] [phone] 04/13/2024 13:30 EDT Appointment [facility] Hematology & Oncology - [address] [phone] 04/13/2024 14:00 EDT Appointment [facility] Hematology & Oncology - [address] [address] 04/16/2024 10:00 EST Telemedicine [facility] - [facility] Palliative Care Services [address] [place] [address] [phone] Chichi Woods MD [address] [place] [phone] 04/24/2024 9:00 EST Appointment [facility] Radiology CT Outpatient - [address] [address] 04/24/2024 11:00 EST Appointment [facility] Breast Imaging - [facility] [address] [place], [place] 505[address] 04/27/2024 12:00 EST Appointment [facility] Hematology & Oncology - [address] [phone] 05/02/2024 15:00 EST Telemedicine [facility] Hematology & Oncology [address] [phone] Alisson Carreon MD [address] [place] [address], [facility] [address] [place] [phone] 05/04/2024 10:15 EST Ancillary Procedure [facility] Cardiology - [place] [address] 05/04/2024 11:30 EST Appointment [facility] Hematology & Oncology - [address] [phone] 05/04/2024 12:00 EST Appointment [facility] Hematology & Oncology - [address] [address] 06/12/2024 13:00 [facility] Radiology CT - [address] [address] documented as of this encounter Visit Diagnoses Not on filedocumented in this encounter Care Teams First Assist Relationship Specialty Start Date End Date Linda Blancas MD [facility] [address] [place] [address] PCP - General 01/06/11 Adolfo Carreno MD [address] [place] [phone] General Surgery 04/26/19 Augustina Colin MD PhD [address] [place] [address] 2 [place] [phone] Medical Oncology 04/26/19 documented as of this encounter
--- OUTSIDE RECORDS SUMMARY | 2024-03-20 14:54 | XMS_ITS | Encounter Summary ---
Author Organization [facility] Address [address] [place] [address] Care Team Providers Care Fusing Furnace Loader Name Role Phone Linda Blancas MD Primary Care Provider [phone] Adolfo Carreno MD Unavailable [phone] Augustina Colin MD PhD Unavailable Unavailable Encounter Details Date Type Department Care Team (Late st Contact Info) Description 03/18/[address] [facility] Hematology & Oncology - [facility] [address] [place] [address] Augustina Colin, PhD Social History Tobacco Use [...] Appointment [facility] Interventional Radiology Unit [address] [place] [address] [phone] 04/02/2024 15:15 EDT Office Visit [facility] Surgical Oncology - [address] [phone] Adolfo Carreno MD [address] [place] [address] 2 [place] [phone] 04/05/2024 9:30 EDT Telemedicine [facility] - [facility] Palliative Care Services [address] [place] [address] [phone] Chichi Woods MD [address] [place] [address], [address] [phone] 04/11/2024 15:[address] [facility] Hematology & Oncology [address] [phone] Alisson Carreon MD [address] [place] [address] 2 [place] [phone] 04/13/2024 13:[address] [facility] Hematology & Oncology [address] [address] 04/13/2024 14:[address] [facility] Hematology & Oncology - [address] [address] 04/16/2024 10:00 EST Telemedicine [facility] - [facility] Palliative Care Services [address] [place] [address] Chichi Woods MD [address] [place] [address], [address] [phone] 04/24/2024 9:[address] [facility] Radiology CT Outpatient - [address] [id number] 04/24/2024 11:00 EST Appointment [facility] Breast Imaging - [facility] S [address] 237001 04/27/2024 12:[address] [facility] Hematology & Oncology - [address] [phone] 05/02/2024 15:[address] [facility] Hematology & Oncology - [address] [phone] Alisson Carreon MD [address] [place] [address], [facility] [address] [place] [phone] 05/04/2024 10:15 EST Ancillary Procedure [facility] Cardiology [place] [address] 05/04/2024 11:[address] [facility] Hematology & Oncology - [address] [address] 05/04/2024 12:[address] [facility] Hematology & Oncology - [address] [phone] 06/12/2024 13:00 EST [facility] Rad[facility] - [address] [address] documented as of this encounter Visit Diagnoses Not on filedocumented in this encounter Care Teams Fusing Furnace Loader Relationship Specialty Start Date End Date Linda Blancas MD [facility] [address] [place] [address] PCP - General 01/06/11 Adolfo Carreno MD [address] [place] [phone] General Surgery 04/26/19 Augustina Colin MD PhD [address] [place] [phone] Medical Oncology 04/26/19 documented as of this encounter
--- OUTSIDE RECORDS SUMMARY | 2024-03-20 14:54 | XMS_ITS | Encounter Summary ---
Author Organization [facility] Address [address] [place] [address] Care Team Providers Care Copy Center Specialist Name Role Phone Linda Blancas MD Primary Care Provider [phone] Adolfo Carreno MD Unavailable [phone] Augustina Colin MD PhD Unavailable Unavailable Reason for Visit * Reason Comments Follow-up Encounter Details Date Type Department Care Team (Late st Contact Info) Description 02/20/2021 15:40 EDT Office Visit [facility] Cancer Center Hematology & Oncology - [address] [phone] Santi Gonzalez PA-C [address] [place] [address], Level 2 [place] [phone] Malignant neoplasm of right female breast, unspecified [...] as of this encounter Progress Notes * Santi Gonzalez PA-C - 02/20/2021 1540 EDT Subjective PROBLEM LIST: 1. 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 a. ??Ultrasound performed in [place]??identifying an irregular heterogeneous soft tissue mass measuring 1.2 x 1.2 x 1.5 cm. ?? b.?Two punch biopsies near the site of the skin changes the right??breast perfomed by Dr Carreno??10/21/2016; ??Pathology identified an invasive ductal type carcinoma involving the epidermis and dermis of the skin, nuclear grade 2, which was ER+80%, KS+20%. ??HER-2 1+ by IHC. ??ANNE MARIE revealed [...] right breast tumor??07/07/17 and placement of tissue worldwide chief creative officer. ??1.9 cm tumor at time of surgery, well differentiated, with LVI present, and negative margins. ?? G.?Biopsy left cervical LN 02/11/20 - consistent with metastatic adenocarcinoma consistent with breast primary?? H. Fulvestrant initiated 03/06/20; abemaciclib initiated 03/31/20 discontinued 06/01 due to diarrhea 2. ??Restaging scans: ?? - CT Chest 11/24/20 2 new small low-attenuation lesions within the liver; Stable small bilateral pulmonary nodules; stable nonenlarged right upper internal thoracic/internal mammary lymph node.; stable nonenlarged left supraclavicular lymph nodes unchanged. - MRI Abdomen 11/24/20: New diffusion restricting subcentimeter lesion anterior right lobe, portal venous outside 148, B800#120. This corresponds to one of the lesion on chest CT; a subcentimeter lesion seen posterior aspect of left lobe; tiny area of focal diffusion restriction present right lobe near the cora hepatis, B800#192 not clearly visible on other sequences, new compared to prior MR, suspicious. - Nuclear bone scan??11/24/20:??Resolution of increased uptake within the proximal left femur. Otherwise no change from prior. No new abnormalities. ?? 3. ??DCIS in 2004 at the [...] time of DCIS??diagnosis. 6. ??Bone Density - 12/13/16 normal bone density of spine and near osteopenia hips A.?Zoledronic acid initiated May 2019; Provided every 6mo as she does not have clear evidence of bone metastasis 7. ??Other chronic health issues: ??gastroesophageal reflux disease, COVID positive with hospitalization June 2020 Sendy presents today for evaluation and ongoing management of breast cancer outlined above. She continues on Faslodex and q 6 month Zometa. She continues to feel great but no new concerns today. She has no hot flashes or new pain. Has ongoing pain in her right foot from a fracture a few years ago. May be proceeding with surgery in May. She otherwise has a negative 12 pt ROS. Patient Active Problem List Diagnosis ??? Osteopenia ??? Encounter for palliative care ??? Malignant neoplasm of female breast (HCC-CMS) ??? Metastatic breast cancer (HCC-CMS) ??? Breast lump ??? Trigger thumb of left hand ??? Personal history of malignant neoplasm of breast ??? S/P breast reconstruction, right Added automatically from request for surgery [id number] ??? Lipoma of back Added automatically from request for surgery [id number] ??? Plantar fat pad atrophy Left heel ??? Plantar fasciitis of left foot ??? Unstable right ankle ??? Hallux rigidus of right foot ??? Acquired absence of breast and nipple ??? Lumbar radicular syndrome ??? Acquired spondylolisthesis ??? Lumbosacral spondylosis without myelopathy ??? Menopausal and postmenopausal disorder ICD10 Update Auto Replacement ??? Encounter for routine gynecological examination ICD10 Update Auto Replacement ??? Premature ovarian failure ??? Herpes simplex type 2 infection ??? Papanicolaou smear of cervix with low grade squamous intraepithelial lesion (LGSIL) Cancer Staging No matching staging information was found for the patient. Review of Systems Constitutional: Negative. HENT: Negative. Eyes: Negative. Respiratory: Negative. Cardiovascular: Negative. Gastrointestinal: Negative. Genitourinary: Negative. Musculoskeletal: Negative. Skin: Negative. Neurological: Negative. Endo/Heme/Allergies: Negative. Psychiatric/Behavioral: Negative. Family History Problem Relation Age of Onset ??? Cancer Father bladder ??? Stroke Mother ??? Cancer Brother 59 esophageal ??? Stroke Brother ??? Liver Disease Brother ??? Cancer Maternal Uncle bladder ??? Breast Cancer Paternal Aunt 35 ??? Cancer Paternal Aunt 35 breast Social History Socioeconomic History ??? Marital status: Spouse name: Not on file ??? Number of children: Not on file ??? Years of education: Not on file ??? Highest education level: Not on file Occupational History ??? Not on file Tobacco Use ??? Smoking status: Never Smoker ??? Smokeless tobacco: Never Used Vaping Use ??? Vaping Use: Never used Substance and Sexual Activity ??? Alcohol use: Yes Alcohol/week: 1.0 - 3.0 standard drink Types: 1 - 3 Glasses of wine per week ??? Drug use: No ??? Sexual activity: Yes Partners: Male Other Topics Concern ??? Not on file Social History Narrative ??? Not on file Social Determinants of Health Financial Resource Strain: ??? Difficulty of Paying Living Expenses: Food Insecurity: ??? Worried About Running Out of Food in the Last Year: ??? Ran Out of Food in the Last Year: Transportation Needs: ??? Lack of Transportation (Medical): ??? Lack of Transportation (Non-Medical): Physical Activity: ??? Days of Exercise per Week: ??? Minutes of Exercise per Session: Stress: ??? Feeling of Stress : Social Connections: ??? Frequency of Communication with Friends and Family: ??? Frequency of Social Gatherings with Friends and Family: ??? Attends Spiritism Services: ??? Active Member of Clubs or Organizations: ??? Attends Club or Organization Meetings: ??? Marital Status: Current Outpatient Medications Medication Sig ??? acetaminophen (TYLENOL) 325 mg tablet Take 2 tablets by mouth every 4 hours as needed for Pain.(Patient not taking: Reported on 10/22/2020) ??? calcium-vitamin D (OS-CHAR D) 500 mg(1,250mg) [...] and pm and 600 mg qhs) ??? HYDROmorphone (DILAUDID) 2 mg tablet Take 1 Tab by mouth every 4 hours as needed for Pain. Daily Max: 12 mg (Patient not taking: Reported on 09/16/2020) ??? ibuprofen (MOTRIN) 200 mg tablet Take 400 mg by mouth as needed. ??? MULTIVITS W-CA,FE,OTHER MIN (WOMEN'S DAILY FORMULA ORAL) Take by mouth daily. ??? mv-mn/C/glutamin/lysin/qkhm697 (AIRBORNE, ASCORBATE SODIUM, ORAL) Take by mouth as needed. ??? omeprazole (PRILOSEC) 20 mg capsule Take 20 mg by mouth daily. ??? RED YEAST RICE EXTRACT ORAL Take 1,200 mg by mouth daily. 600mg 2x a day ??? valACYclovir (VALTREX) 500 mg tablet Take 1 Tab by mouth daily. ??? venlafaxine (EFFEXOR-XR) 150 mg XR capsule Take 1 Cap by mouth daily. ??? zolpidem (AMBIEN) 5 mg tablet Take 5 mg by mouth at bedtime as needed for Sleep. Reported on 11/01/2016 There were no vitals filed for this visit. Wt Readings from Last 3 Encounters: 12/25/20 60.8 kg (134 lb) 11/27/20 62 kg (136 lb 9.6 oz) 10/02/20 62.6 kg (137 lb 14.4 oz) Physical Exam Constitutional: She is oriented to person, place, and time. She appears well- developed and well-nourished. No distress. HENT: Head: Normocephalic and atraumatic. Mouth/Throat: Oropharynx is clear and moist. No oropharyngeal exudate. Eyes: Conjunctivae and EOM are normal. No scleral icterus. Cardiovascular: Normal rate, regular rhythm, normal heart sounds and intact distal pulses. Exam reveals no gallop and no friction rub. No murmur heard. Pulmonary/Chest: Effort normal and breath sounds normal. Abdominal: Soft. Bowel sounds are normal. She exhibits no distension and no mass. There is no splenomegaly or hepatomegaly. There is no abdominal tenderness. There is no rebound and no guarding. Musculoskeletal: General: No edema. Normal range of motion. Cervical back: Normal range of motion. Lymphadenopathy: She has no cervical adenopathy. Neurological: She is alert and oriented to person, place, and time. Skin: No rash noted. She is not diaphoretic. Psychiatric: She has a normal mood and affect. Her behavior is normal. Judgment and thought contentnormal. Lab Results Component Value Date WBC 9.41 02/20/2021 HGB 13.5 02/20/2021 HCT 40.5 02/20/2021 MCV 98 02/20/2021 PLT 261 02/20/2021 NEUTROABS 5.08 02/20/2021 CALCIUM 9.8 02/20/2021 CO2 29 02/20/2021 AST 30 02/20/2021 ALT 20 02/20/2021 TBIL <0.5 02/20/2021 CREATININE 0.63 02/20/2021 CALCCA 9.6 02/20/2021 TP 7.0 02/20/2021 K 4.1 02/20/2021 ALKPHOS 79 02/20/2021 LABALBU 4.3 02/20/2021 BUN 20 02/20/2021 CALCGFR 98 02/20/2021 FASTFASTN Yes 08/16/2007 CL 101 02/20/2021 SERGLU 85 02/20/2021 NA 139 02/20/2021 Imaging No new imaging to review Assessment & Plan 60 y.o. female with metastatic breast cancer, currently on Faslodex and Zometa. She was started on abemaciclib in 03/2020 but this was discontinued after a few months due to significant diarrhea. Shehad recent restaging scans which showed mixed response. The plan per Dr. Colin was to continue no Faslodex with repeat imaging at 3 months. If progression, she may add palbociclib. She continues to f eel great overall without any new concerns today. Lab work drawn and is unremarkable. 1. Continue Faslodex 500 mg today and monthly. 2. Continue Zometa IV q 6 months. Due again in July 2021. 3. Restaging with MR of the abdomen scheduled for 03/02. 4. She will see Dr. Carreno again 03/02 5. DEXA scan scheduled 03/02. 6. Return to clinic as scheduled for follow up with Dr. Colin on 03/19. Santi Gonzalez PA-C documented in this encounter Plan of Treatment Upcoming Encounters Date Type Department Care Team (Late st Contact Info) Description 04/02/2024 10:30 EDT Appointment [facility] Interventional Radiology Unit [address] [place] [address] [phone] 04/02/2024 15:15 EDT Office Visit [facility] Surgical Oncology - [address] [phone] Adolfo Carreno MD [address] [place] [address] [phone] 04/05/2024 9:30 EDT Telemedicine [facility] Palliative Care Services [address] [place] [address] Chichi Woods MD [address] [place] [address] [phone] 04/11/2024 15:00 EDT Telemedicine [facility] Hematology & Oncology [address] 123541 Alisson Carreon MD [address] [place] [address] [phone] 04/13/2024 13:30 EDT Appointment [facility] Hematology & Oncology [address] [phone] 04/13/2024 14:00 EDT Appointment [facility] Hematology & Oncology [address] [id number] 04/16/2024 10:00 EST Telemedicine [facility] Palliative Care Services [address] [place] [address] [id number] Chichi Woods MD [address] [place] [address], [address] [place] [phone] 04/24/2024 9:00 EST Appointment [facility] Radiology CT Outpatient - [address] [phone] 04/24/2024 11:00 EST Appointment [facility] Breast Imaging - [facility] [place] [address] [place], [place] 192511 04/27/2024 12:00 EST Appointment [facility] Hematology & Oncology - [address] [phone] 05/02/2024 15:00 EST Telemedicine [facility] Hematology & Oncology [address] [phone] Alisson Carreon MD [address] [place] [address], Level 2 [place] [phone] 05/04/2024 10:15 EST Ancillary Procedure [facility] Cardiology - [address] [place] [address] 05/04/2024 11:30 EST Appointment [facility] Hematology & Oncology - [address] [phone] 05/04/2024 12:00 EST Appointment [facility] Hematology & Oncology - [address] [phone] 06/12/2024 13:00 EST Appointment [facility] Radiology CT - [address] [phone] documented as of this encounter Visit Diagnoses Diagnosis Malignant neoplasm of right female breast, unspecified estrogen receptor status, unspecified site of breast (HCC-CMS)- Primary documented in this encounter Orders Appointment Requests Count Last Ordered Date Fi rst Ordered Date ONCBCN CLINIC APPOINTMENT REQUEST 1 021 documented in this encounter Care Teams Copy Center Specialist Relationship Specialty Start Date End Date Linda Blancas MD [facility] [address] [place] [address] PCP - General 01/06/11 Adolfo Carreno MD [address] [place] [address] 2 [place] [phone] General Surgery 04/26/19 Augustina Colin MD PhD [address] [place] [address] 2 [place] [phone] Medical Oncology 04/26/19 documented as of this encounter
--- OUTSIDE RECORDS SUMMARY | 2024-03-20 14:54 | XMS_ITS | Encounter Summary ---
Author Organization [facility] Address [address] [place] [address] Care Team Providers Care Tree Planter Name Role Phone Linda Blancas MD Primary Care Provider [phone] Adolfo Carreno MD Unavailable [phone] Augustina Colin MD PhD Unavailable Unavailable Encounter Details Date Type Department Care Team (Latest Contact Info) Description 03/19/2021 10:30 EDT - 03/19/2021 23:59 EDT Hospital Encounter [facility] Cancer Center Hematology & Oncology - [place] [address] [place], [place] [phone] Malignant neoplasm of right female breast, unspecified [...] Tablets by mouth as needed. 12/07/2023 mv-mn/C/glutamin/lysin/ ecob134 (AIRBORNE, ASCORBATE SODIUM, ORAL) Take by mouth [...] Progress Notes * Kayla Altamirano RN - 03/19/2021 1130 EDT Out-patient Injection Note Patient presents to clinic today for cycle # 14, day # 1 of Faslodex treatment plan. Reviewed lab results with patient Chemistry: Lab Results Component Value Date NA 142 03/19/2021 K 4.0 03/19/2021 BUN 17 03/19/2021 CREATININE 0.67 03/19/2021 CALCIUM 9.1 03/19/2021 MG 2.1 03/19/2021 . Parameters for today???s treatment met Patient received 500 mg in bilateral upper outer quad of glute. Patient tolerating therapy. Reviewed side effect profile. Patient education: Patient verbally educated on all medications administered today, side effects, and symptom management. Patient verbally expressed understanding of education provided no barriers identified Patient and family encouraged to call clinic with any issues. I was supervised by Dr. Rolle who was present and immediately available in the office suite. KAYLA ALTAMIRANO RN documented in this encounter Miscellaneous Notes * Addendum Note - Modesto Dorado - 03/19/2021 1130 EDTEncounter addended by: Modesto Dorado on: 04/15/2021 7:45 Actions taken: Charge Capture section accepted documented in this encounter Plan of Treatment Upcoming Encounters Date Type Department Care Team (Late st Contact Info) Description 04/02/2024 10:30 EDT Appointment [facility] Interventional Radiology Unit [address] [place] [id number] 04/02/2024 15:15 EDT Office Visit [facility] Surgical Oncology - [address] 120351 Adolfo Carreno MD [address] [place] [address] [phone] 04/05/2024 9:30 EDT Telemedicine [facility] Palliative Care Services [address] [place] [address] [phone] Chichi Woods MD [address] [place] [address] [phone] 04/11/2024 15:00 EDT Telemedicine [facility] Hematology & Oncology - [address] 940331 Alisson Carreon MD [address] [place] [address] [phone] 04/13/2024 13:30 EDT Appointment [facility] Hematology & Oncology - [address] [phone] 04/13/2024 14:00 EDT Appointment [facility] Hematology & Oncology - [address] [phone] 04/16/2024 10:00 EST Telemedicine [facility] Palliative Care Services [address] [place] [address] [phone] Chichi Woods MD [address] [place] [address] [phone] 04/24/2024 9:00 EST Appointment [facility] Radiology CT Outpatient - [address] 708301 04/24/2024 11:00 EST Appointment [facility] Breast Imaging - [facility] 1 [place] [address] 04/27/2024 12:00 EST Appointment [facility] Hematology & Oncology [address] [address] 05/02/2024 15:00 EST Telemedicine [facility] Hematology & Oncology [address] 142621 Alisson Carreon MD [address] [place] [address], Level 2 [place] [phone] 05/04/2024 10:15 EST Ancillary Procedure [facility] Cardiology - [address] [place] [address] 05/04/2024 11:30 EST Appointment [facility] Hematology & Oncology - [address] [phone] 05/04/2024 12:00 EST Appointment [facility] Hematology & Oncology - [address] [phone] 06/12/2024 13:00 EST Appointment [facility] Radiology CT - [address] 142051 documented as of this encounter Visit Diagnoses Diagnosis Malignant neoplasm of right female breast, unspecified estrogen receptor status, unspecified site of breast (HCC-CMS)- Primary documented in this encounter Administered Medications Inactive Administered Medications - up to 3 most recent administrations Medication Order MAR Action Action Date Dose Rate Site fulvestrant (FASLODEX) injection 500 mg 500 mg, intramuscular, NOW X1, 1 dose, On Michelle 03/19/21 at 1215, Routine Given 03/19/2021 12:05 EDT 500 mg documented in this encounter Orders Appointment Requests Count Last Ordered Date Fi rst Ordered Date ONCBCN INJECTION APPOINTMENT REQUEST 1 12/2020 documented in this encounter Care Teams Tree Planter Relationship Specialty Start Date End Date Linda Blancas MD [facility] [address] [place] [address] PCP - General 01/06/11 Adolfo Carreno MD [address] [place] [address] [phone] General Surgery 04/26/19 Augustina Colin MD PhD [address] [place] [phone] Medical Oncology 04/26/19 documented as of this encounter
--- OUTSIDE RECORDS SUMMARY | 2024-03-20 14:54 | XMS_ITS | Encounter Summary ---
Author Organization [facility] Address [address] [place] [address] Care Team Providers Care Loan Consultant Name Role Phone Linda Blancas MD Primary Care Provider [phone] Aodlfo Carreno MD Unavailable [phone] Augustina Colin MD PhD Unavailable Unavailable Encounter Details Date Type Department Care Team (Late st Contact Info) Description 03/02/2021 9:30 EDT Ancillary Procedure [facility] Surgical Oncology - Main [place] [address] [place], [place] [phone] Social History Tobacco Use Types Packs/Day Years [...] EDT Appointment [facility] Interventional Radiology Unit [address] [place] [address] [phone] 04/02/2024 15:15 EDT Office Visit [facility] Surgical Oncology - [address] [phone] Adolfo Carreno MD [address] [place] [address] 2 [place] [phone] 04/05/2024 9:30 EDT Telemedicine [facility] - [facility] Palliative Care Services [address] [place] [address] [phone] Chichi Woods MD [address] [place] [address] [phone] 04/11/2024 15:00 EDT Telemedicine [facility] Hematology & Oncology [address] [phone] Alisson Carreon MD [address] [place] [address] 2 [place] [phone] 04/13/2024 13:30 EDT Appointment [facility] Hematology & Oncology [address] [phone] 04/13/2024 14:00 EDT Appointment [facility] Hematology & Oncology - [address] [phone] 04/16/2024 10:00 EST Telemedicine [facility] - [facility] Palliative Care Services [address] [place], [place] 646211 Chichi Woods MD [address] [facility], [address] [phone] 04/24/2024 9:00 EST Appointment [facility] Radiology CT Outpatient - [address] [address] 04/24/2024 11:00 EST Appointment [facility] Breast Imaging - [address] [address] 04/27/2024 12:00 EST Appointment [facility] Hematology & Oncology - [address] [phone] 05/02/2024 15:00 EST Telemedicine [facility] Hematology & Oncology - [address] 190141 Alisson Carreon MD [address] [place] [address], [address] [place] [phone] 05/04/2024 10:15 EST Ancillary Procedure [facility] Cardiology - [address] [address] 05/04/2024 11:30 EST Appointment [facility] Hematology & Oncology - [address] [address] 05/04/2024 12:00 EST Appointment [facility] Hematology & Oncology - [address] [address] 06/12/2024 13:00 EST Appointment [facility] Center Radiology CT - [address] [phone] documented as of this encounter Procedures Procedure Name Priority Date/Time Associated Diagnosis Comments [facility] BREAST [facility] ONLY Routine 03/02/2021 9:51 EDT documented in this encounter Results * [facility] BREAST BREAST [facility] ONLY (03/02/2021 9:51 EDT) Narrative [facility] POINT OF CARE - 03/02/2021 9:51 EDT This is a non-reportable exam. Adolfo Carreno MD IMG US POC ORDERABLE S [facility] POINT OF CARE documented in this encounter Visit Diagnoses Not on filedocumented in this encounter Care Teams Loan Consultant Relationship Specialty Start Date End Date Linda Blancas MD [facility] [address] [place] [address] PCP - General 01/06/11 Adolfo Carreno MD [address] [place] [address] [phone] General Surgery 04/26/19 Augustina Colin MD PhD [address] [place] [address] 2 [place] [phone] Medical Oncology 04/26/19 documented as of this encounter
--- OUTSIDE RECORDS SUMMARY | 2024-03-20 14:54 | XMS_ITS | Encounter Summary ---
Author Organization [facility] [place] Address [address] [place] [address] Care Team Providers Care Ball Points Inspector Name Role Phone Linda Blancas MD Primary Care Provider [phone] Adolfo Carreno MD Unavailable [phone] Augustina Colin MD PhD Unavailable Unavailable Reason for Referral * Radiology Services (Routine/Next Available) - Closed Specialty Diagnoses / Procedures Referred By Contac t Referred To Contact Diagnoses Malignant neoplasm of right female breast, unspecified estrogen receptor status, unspecified site of breast ([facility]) Procedures CT CHEST W CONTRAST Augustina Colin MD PhD Referral ID Status Reason Start Date Expiration Date Visits Re quested Visits Authorized [id number] Closed 05/21/2021 11/17/2021 1 1 * Radiology Services (Routine/Next Available) - Authorization Not Required Specialty Diagnoses / Procedures Referred By Contac t Referred To Contact Nuclear Medicine Diagnoses Malignant neoplasm of right female breast, unspecified estrogen receptor status, unspecified site of breast ([facility]) Procedures NM BONE WHOLE BODY Augustina Colin MD PhD Referral ID Status Reason Start Date Expiration Date Visits Requested Visits Authorized [id number] Authorization Not Required 03/19/2021 1 1 Reason for Visit * Reason Comments Telemedicine Video Visit Injections Encounter Details Date Type Department Care Team (Late st Contact Info) Description 03/19/2021 11:00 EDT Telemedicine [facility] Hematology & Oncology - [address] [address] Augustina Colin MD PhD Malignant neoplasm of [...] Sign Reading Time Taken Comments Blood Pressure 128/75 03/19/2021 1045 EDT Pulse 82 03/19/2021 1045 EDT Temperature 36.6 ??C (97.8 ??F) 03/19/2021 1045 EDT Respiratory Rate 16 03/19/2021 1045 EDT Oxygen Saturation 100% 03/19/2021 1045 EDT Inhaled Oxygen Concentration - - Weight 62.5 kg (137 lb 11.2 oz) 03/19/2021 1045 EDT Height 154.6 cm (5' 0.87) 03/19/2021 1045 EDT Body Mass Index 26.13 03/19/2021 1045 EDT documented in this encounter Functional Status [...] encounter Progress Notes * Augustina Colin MD - 03/19/2021 1100 EDT REASON FOR OFFICE VISIT: ??Discussion of side effects related to anti estrogen therapy ? The concept of ???Telemedicine?? has been described [...] of ER+ DCIS. a. ??Ultrasound performed in [place]??identifying an irregular heterogeneous soft tissue mass measuring 1.2 x 1.2 x 1.5 cm. ?? 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 ??HER-2 1+ by IHC. ??ANNE MARIE revealed [...] breast tumor 07/07/17 and placement of tissue tobacco sizer. ??1.9 cm tumor at time of surgery, well differentiated, with LVI present, and negative margins. ?? G. Biopsy left cervical LN 02/11/20 - consistent with metastatic adenocarcinoma consistent with breast primary H. Fulvestrant initiated 03/06/20; abemaciclib initiated 03/31/20 discontinued 06/01 due to diarrhea 2. ??Restaging scans: ?? - MRI Abdomen 03/02/21: Slightly enlarging pre-existing and punctate new hepatic metastases - CT Chest 11/24/20 2 new small low-attenuation lesions within the liver; Stable small bilateral pulmonary nodules; stable nonenlarged right upper internal thoracic/internal mammary lymph node.; stable nonenlarged left supraclavicular lymph nodes unchanged. - Nuclear bone scan??11/24/20: Resolution of increased uptake within the proximal left femur. Otherwise no change from prior. No new abnormalities. 3. ??DCIS in 2004 at the age [...] and scan results. She had an MRI of her abdomen about two weeks ago. The hepatic lesions are slightly enlarging. She tolerates faslodex other than some discomfort at the site of the injection. She has not had problems with hot flashes. She continues to be active. She remembers tolerating palbociclib at the 100mg dose. She will be having surgery on her right foot in May. ROS: A 10 point review of systems was obtained. Other than described in the subjective she has no concerns or issues. Medications Prior to Today's Visit Medication Sig ??? acetaminophen (TYLENOL) 325 mg [...] FORMULA ORAL) Take by mouth daily. ??? mv-mn/C/glutamin/lysin/pzfi254 (AIRBORNE, ASCORBATE SODIUM, ORAL) Take by mouth [...] of wine per week Presents the clinic alone. She continues to be active. She has several family members visiting [facility] summer. Objective: There were no vitals taken for this visit. Estimated body mass index is 25.44 kg/m?? as calculated from the following: Height as of 03/02/21: 156 cm (61.42). Weight as of 03/02/21: 61.9 kg (136 lb 7.4 oz). ECOG Performance Status: 0 General: Comfortable, cooperative and in no apparent distress NEURO: Alert and oriented x 3; Grossly neurologically intact DIAGNOSTIC DATA No visits with results within 1 Day(s) from this visit. Latest known visit with results is: Phlebotomy Only on 02/20/2021 Component Date Value Ref Range Status ??? Sodium 02/20/2021 139 136 - 145 mmol/L Final ??? Potassium 02/20/2021 4.1 3.5 - 5.0 mEq/L Final ??? Chloride 02/20/2021 101 96 - 110 mEq/L Final ??? CO2 Total 02/20/2021 29 22 - 32 mEq/L Final ??? Glucose 02/20/2021 85 70 - 100 mg/dL Final ??? BUN 02/20/2021 20 10 - 26 mg/dL Final ??? Creatinine 02/20/2021 0.63 0.52 - 1.04 mg/dL Final ? ? eGFR 02/20/2021 98 >60 mL/min/1.73m2 Final eGFR calculated using CKD-EPI equation for non- Americans. Multiply eGFR by 1.16 for AfricanAmerican patients. ??? Total Protein 02/20/2021 7.0 6.3 - 8.2 g/dL Final ??? Albumin 02/20/2021 4.3 3.4 - 4.9 g/dL Final ??? Alkaline Phosphatase 02/20/2021 79 38 - 126 U/L Final ??? AST 02/20/2021 30 15 - 46 U/L Final ? ? ALT 02/20/2021 20 <35 U/L Final ? ? Bilirubin, Total 02/20/2021 <0.5 <1.4 mg/dL Final ??? Calcium 02/20/2021 9.8 8.5 - 10.5 mg/dL Final ??? Calculated Calcium 02/20/2021 9.6 8.5 - 10.5 mg/dL Final ??? Magnesium 02/20/2021 2.2 1.7 - 2.8 mg/dL Final ??? WBC 02/20/2021 9.41 4.00 - 12.40 K/cmm Final ??? RBC 02/20/2021 4.14 3.86 - 5.04 M/cmm Final ??? Hemoglobin 02/20/2021 13.5 11.6 - 15.2 gm/dL Final ??? HCT 02/20/2021 40.5 34.9 - 44.4 % Final ??? MCV 02/20/2021 98 81 - 98 fl Final ??? MCH 02/20/2021 32.6 26.7 - 33.3 pg Final ??? MCHC 02/20/2021 33.3 32.1 - 35.9 gm/dL Final ? ? RDW-CV 02/20/2021 12.2 <14.7 % Final ? ? RDW-SD 02/20/2021 44.1 <50.4 fl Final ??? PLT 02/20/2021 261 141 - 377 K/cmm Final ??? MPV 02/20/2021 10.0 9.5 - 12.7 fl Final ??? Neutrophils 02/20/2021 54.1 % Final ??? Lymphocytes 02/20/2021 30.3 % Final ??? Monocytes 02/20/2021 8.9 % Final ??? Eosinophils 02/20/2021 5.7 % Final ??? Basophils 02/20/2021 0.7 % Final ??? Immature Grans 02/20/2021 0.3 % Final ??? Absolute Neutrophils 02/20/2021 5.08 2.20 - 8.85 K/cmm Final ??? Absolute Lymphocytes 02/20/2021 2.85 1.09 - 3.30 K/cmm Final ??? Absolute Monocytes 02/20/2021 0.84* 0.10 - 0.80 K/cmm Final ??? Absolute Eosinophils 02/20/2021 0.54 0.03 - 0.61 K/cmm Final ??? Absolute Basophils 02/20/2021 0.07 0.01 - 0.11 K/cmm Final ??? Absolute Immature Grans 02/20/2021 0.03 0.00 - 0.06 K/cmm Final ??? Type of Differential: 02/20/2021 Auto Final ASSESSMENT: ??Ms Bernstein is a 60-year-old female with metastatic breast cancer.?? She startedon fluvesterant fall with abemaciclib added in March 2020 which was discontinued a few months later due to significant diarrhea. Her staging scans from November indicated a mixed response. A repeat abdominal MRI completed two weeks ago indicate some progression. Since she has progressed and has not had complete courses of either palbo or abemaciclib. We will add palbociclib since abemaciclib was associated with with significant diarrhea. We will use the doseshe tolerated without mouth sores which was 100mg daily. We will then hold it for the ankle surgeryin May. Insurance will change in Jun. We will obtain scans prior to that. Zolendronic acid every 6 mos. She takes a vitamin D supplement and we have encouraged weight bearing exercise. PLAN: 1. Faslodex 500mg today and monthly 2. Palbocilb 100mg daily 21 out of 28 days will be initiated in mid to end of March 3. Zoledronic acid q 6mo, next due July 2021 4. MR abdomen, CT chest and nuclear bone scan end of May; 5.??Continued follow-up with Dr. Carreno and Dr Boss 6. FUR early Jun when she is due for Faslodex. Patient is encouraged call with any intercurrent concerns or problems. TELEMEDICINE VIDEO VISIT Today's visit was provided through telemedicine video conferencing: I have reviewed the appropriateness of using video technology with the patient with regards to today's visit. The location of the patient : clinic exam room The location of the provider: Office The following staff and their role did participate in today's encounter visit: Augustina Colin MD documented in this encounter Plan of Treatment Upcoming Encounters Date Type Department Care Team (Late st Contact Info) Description 04/02/2024 10:30 EDT Appointment [facility] Interventional Radiology Unit [address] [place] [address] [phone] 04/02/2024 15:15 EDT Office Visit [facility] Surgical Oncology - [address] 232111 Adolfo Carreno MD [address] [place] [address] 2 [place] [phone] 04/05/2024 9:30 EDT Telemedicine [facility] Palliative Care Services [address] [place] [address] [phone] Chichi Woods MD [address] [place] [address] [phone] 04/11/2024 15:00 EDT Telemedicine [facility] Hematology & Oncology [address] 348641 Alisson Carreon MD [address] [place] [phone] 04/13/2024 13:30 EDT Appointment [facility] Hematology & Oncology [address] [phone] 04/13/2024 14:00 EDT Appointment [facility] Hematology & Oncology [address] [phone] 04/16/2024 10:00 EST Telemedicine [facility] Palliative Care Services [address] [place] [address] [phone] Chichi Woods MD [address] [place] [address], [address] [phone] 04/24/2024 9:00 EST Appointment [facility] Radiology CT Outpatient - [address] [phone] 04/24/2024 11:00 EST Appointment [facility] Breast Imaging - [address] [phone] 04/27/2024 12:00 EST Appointment [facility] Hematology & Oncology [address] [phone] 05/02/2024 15:00 EST Telemedicine [facility] Hematology & Oncology [address] [phone] Alisson Carreon MD [address] [place] [address], [facility] [address] [place] [phone] 05/04/2024 10:15 EST Ancillary Procedure [facility] Cardiology - [place] [address] 05/04/2024 11:30 EST Appointment [facility] Hematology & Oncology [address] [phone] 05/04/2024 12:00 EST Appointment [facility] Hematology & Oncology [address] [phone] 06/12/2024 13:00 EST Appointment [facility] Radiology CT - [address] [phone] documented as of this encounter Results * [...] Colin MD PhD IMG NM ORDERABLES * CT CHEST W CONTRAST (06/09/2021 10:37 [...] breath-hold helical CT acquisition was performed through thechest on a multidetector-row scanner with a reconstructed slice thicknessof 3 mm and retrospectively reconstructed 0.9 mm thick sections with 0.45mm overlapping intervals. The scans were obtained from the lung apicesthrough the bases during the intravenous administration of 70-100 cc [id number] mg% nonionic contrast injected at a rate [...] appearance of the chest compared to priorexamination. Augustian Colin MD PhD IMG CT ORDERABLES documented [...] 021 documented in this encounter Care Teams Ball Points Inspector Relationship Specialty Start Date End Date Linda Blancas MD [facility] [address] [place] [address] PCP - General 01/06/11 Adolfo Carreno MD [address] [place] [address] [phone] General Surgery 04/26/19 Augustina Colin MD PhD [address] [place] [phone] Medical Oncology 04/26/19 documented as of this encounter
--- OUTSIDE RECORDS SUMMARY | 2024-03-20 14:54 | XMS_ITS | Encounter Summary ---
Author Organization [facility] Address [address] [place] [address] Care Team Providers Care Certified Nursing Assistant Name Role Phone Linda Blancas MD Primary Care Provider [phone] Adolfo Carreno MD Unavailable [phone] Augustina Colin MD PhD Unavailable Unavailable Reason for Visit * Reason Comments Injections Encounter Details Date Type Department Care Team (Latest Contact Info) Description 02/20/2021 15:02 EDT - 02/20/2021 23:59 EDT Hospital Encounter [facility] Cancer Center Hematology & Oncology - Main [place] [address] [place] [address] Malignant neoplasm of right female breast, unspecified [...] Sign Reading Time Taken Comments Blood Pressure 141/67 02/20/2021 1526 EDT Pulse 75 02/20/2021 1526 EDT Temperature 36.3 ??C (97.3 ??F) 02/20/2021 1526 EDT Respiratory Rate 16 02/20/2021 1526 EDT Oxygen Saturation 100% 02/20/2021 1526 EDT Inhaled Oxygen Concentration - - Weight [...] Tablets by mouth as needed. 12/07/2023 mv-mn/C/glutamin/lysin/ [id number] (AIRBORNE, ASCORBATE SODIUM, ORAL) Take by mouth [...] documented in this encounter Progress Notes * Sherrie Simpson RN - 02/20/2021 1600 EDT Patient arrives today for cycle 13 day 1 of FLUVESTRANT. Fulvestrant 500mg administered IM to right and left gluteal region. Patient tolerated without issue, band aid applied. I was supervised by Dr. Cowart who was present and immediately available in the office suite. SHERRIE SIMPSON RN 02/20/2021 15:34 documented in this encounter Miscellaneous Notes * Addendum Note - Mirian Houston - 02/20/2021 1600 EDTEncounter addended by: Mirian Houston on: 03/14/2021 7:31 Actions taken: Charge Capture section accepted documented in this encounter Plan of Treatment Upcoming Encounters Date Type Department Care Team (Late st Contact Info) Description 04/02/2024 10:30 EDT Appointment [facility] Interventional Radiology Unit [address] [place] [phone] 04/02/2024 15:15 EDT Office Visit [facility] Surgical Oncology [address] [phone] Adolfo Carreno MD [address] [place] [address] 2 [place] [phone] 04/05/2024 9:30 EDT Telemedicine [facility] Palliative Care Services [address] [place] [address] [phone] Chichi Woods MD [address] [place] [address] [phone] 04/11/2024 15:00 EDT Telemedicine [facility] Hematology & Oncology - [address] [phone] Alisson Carreon MD [address] [place] [address] 2 [place] [phone] 04/13/2024 13:30 EDT Appointment [facility] Hematology & Oncology - [address] [phone] 04/13/2024 14:00 EDT Appointment [facility] Hematology & Oncology - [address] [phone] 04/16/2024 10:00 EST Telemedicine [facility] - [facility] Palliative Care Services [address] [place] [address] [phone] Chichi Woods MD [address] [place] [address] [phone] 04/24/2024 9:00 EST Appointment [facility] Radiology CT Outpatient - [address] [phone] 04/24/2024 11:00 EST Appointment [facility] Breast Imaging - [facility] [place] 1 [place] [address] 04/27/2024 12:00 EST Appointment [facility] Hematology & Oncology [address] [address] 05/02/2024 15:00 EST Telemedicine [facility] Hematology & Oncology [address] [phone] Alisson Carreon MD [address] [place] [address], Level [address] [place] [phone] 05/04/2024 10:15 EST Ancillary Procedure [facility] Cardiology - [address] [place] [address] 05/04/2024 11:30 EST Appointment [facility] Hematology & Oncology - [address] [phone] 05/04/2024 12:00 EST Appointment [facility] Hematology & Oncology [address] [phone] 06/12/2024 13:00 EST Appointment [facility] Radiology CT - [address] [phone] documented as of this encounter Visit Diagnoses Diagnosis Malignant neoplasm of right female breast, unspecified estrogen receptor status, unspecified site of breast ([facility] Primary documented in this encounter Administered Medications Inactive Administered Medications - up to 3 most recent administrations Medication Order MAR Action Action Date Dose Rate Site fulvestrant (FASLODEX) injection 500 mg 500 mg, intramuscular, NOW X1, 1 dose, On Tue02/20/21 at 1545, Routine Given 02/20/2021 15:37 EDT 500 mg documented in this encounter Orders Appointment Requests Count Last Ordered Date Fi rst Ordered Date ONCBCN INJECTION APPOINTMENT REQUEST 1 02/11 documented in this encounter Care Teams Certified Nursing Assistant Relationship Specialty Start Date End Date Linda Blancas MD [facility] [address] [place] [address] PCP - General 01/06/11 Adolfo Carreno MD [address] [place] [phone] General Surgery 04/26/19 Augustina Colin MD PhD [address] [place] [phone] Medical Oncology 04/26/19 documented as of this encounter
--- OUTSIDE RECORDS SUMMARY | 2024-03-20 14:54 | XMS_ITS | Encounter Summary ---
Author Organization [facility] Address [address] [place] [address] Care Team Providers Care Studio Control Operator Name Role Phone Linda Blancas MD Primary Care Provider [phone] Adolfo Carreno MD Unavailable [phone] Augustina Colin MD PhD Unavailable Unavailable Encounter Details Date Type Department Care Team (Late st Contact Info) Description 03/19/2021 Orders Only [facility] Radiology - Main [place] [address] [place], [place] [phone] Lorri Maldonado MD [address] [place] [phone] Social History Tobacco Use Types [...] Info) Description 04/02/2024 10:30 EDT Appointment [facility] Interventional Radiology Unit [address] [place] [address] [phone] 04/02/2024 15:15 EDT Office Visit [facility] Surgical Oncology - [address] [phone] Adolfo Carreno MD [address] [place] [address] 2 [place] [phone] 04/05/2024 9:30 EDT Telemedicine [facility] - [facility] Palliative Care Services [address] [place], [place] [phone] Chichi Woods MD [address] [place] [address], [address] [phone] 04/11/2024 15:00 EDT Telemedicine [facility] Hematology & Oncology - [address] [phone] Alisson Carreon MD [address] [place] [address] 2 [place] [phone] 04/13/2024 13:30 EDT Appointment [facility] Hematology & Oncology - [address] [phone] 04/13/2024 14:00 EDT Appointment [facility] Hematology & Oncology - [address] [address] 04/16/2024 10:00 EST Telemedicine [facility] - [facility] Palliative Care Services [address] [place] [address] [phone] Chichi Woods MD [address] [place] [address] [phone] 04/24/2024 9:00 EST Appointment [facility] Radiology CT Outpatient - [address] [address] 04/24/2024 11:00 EST Appointment [facility] Breast Imaging - [facility] [place] [address] [place], [place] 665561 04/27/2024 12:00 EST Appointment [facility] Hematology & Oncology - [address] [phone] 05/02/2024 15:00 EST Telemedicine [facility] Hematology & Oncology [address] [phone] Alisson Carreon MD [address] [place] [address], [facility] 2 [place] [phone] 05/04/2024 10:15 EST Ancillary Procedure [facility] Cardiology [place] [place] [address] 05/04/2024 11:30 EST Appointment [facility] Hematology & Oncology - [address] [phone] 05/04/2024 12:00 EST Appointment [facility] Hematology & Oncology - [address] [address] 06/12/2024 13:00 [facility] Radiology CT - [address] [address] documented as of this encounter Visit Diagnoses Not on filedocumented in this encounter Care Teams Studio Control Operator Relationship Specialty Start Date End Date Linda Blancas MD [facility] [address] [place] [address] PCP - General 01/06/11 Adolfo Carreno MD [address] [place] [phone] General Surgery 04/26/19 Augustina Colin MD PhD [address] [place] [address] 2 [place] [phone] Medical Oncology 04/26/19 documented as of this encounter
--- OUTSIDE RECORDS SUMMARY | 2024-03-20 14:54 | XMS_ITS | Encounter Summary ---
Author Organization [facility] Address [address] [place] [address] Care Team Providers Care Physical Education Specialist Name Role Phone Linda Blancas MD Primary Care Provider [phone] Adolfo Carreno MD Unavailable Augustina Colin MD PhD Unavailable Unavailable Encounter Details Date Type Department Care Team (Late st Contact Info) Description 03/20/2021 Orders Only [facility] Cancer Center Hematology & Oncology - [facility] [address] [place] [address] Augustina Colin, PhD Malignant neoplasm of right [...] EDT Appointment [facility] Interventional Radiology Unit [address] [place] [address] [phone] 04/02/2024 15:15 EDT Office Visit [facility] Surgical Oncology - [address] [phone] Adolfo Carreno MD [address] [place] [address] 2 [place] [phone] 04/05/2024 9:30 EDT Telemedicine [facility] - [facility] Palliative Care Services [address] [place], [place] [phone] Chichi Woods MD [address] [place] [address], [address] [phone] 04/11/2024 15:00 EDT Telemedicine [facility] Hematology & Oncology - [address] [phone] Alisson Carreon MD [address] [place] [address] 2 [place] [phone] 04/13/2024 13:30 EDT Appointment [facility] Hematology & Oncology - [address] [phone] 04/13/2024 14:00 EDT Appointment [facility] Hematology & Oncology - [address] [phone] 04/16/2024 10:00 EST Telemedicine [facility] - [facility] Palliative Care Services [address] [place] [address] [phone] Chichi Woods MD [address] [place] [phone] 04/24/2024 9:00 EST Appointment [facility] Radiology CT Outpatient - [address] [address] 04/24/2024 11:00 EST Appointment [facility] Breast Imaging - [facility] [address] [place], [place] 968991 04/27/2024 12:00 EST Appointment [facility] Hematology & Oncology - [address] [phone] 05/02/2024 15:00 EST Telemedicine [facility] Hematology & Oncology [address] [phone] Alisson Carreon MD [address] [place] [address], [facility] 2 [place] [phone] 05/04/2024 10:15 EST Ancillary Procedure [facility] Cardiology - [address] [place] [address] 05/04/2024 11:30 EST Appointment [facility] Hematology & Oncology - [address] [phone] 05/04/2024 12:00 EST Appointment [facility] Hematology & Oncology - [address] [address] 06/12/2024 13:00 EST [facility] Radiology [facility] - [address] [address] documented as of this encounter Visit Diagnoses Diagnosis Malignant neoplasm of right female breast, unspecified estrogen receptor status, unspecified site of breast (HCC-[facility])- Primary documented in this encounter Orders Appointment Requests Count Last Ordered Date Fi rst Ordered Date ONCBCN INJECTION APPOINTMENT REQUEST 5 07/1504/16/2021 ONCBCN CLINIC APPOINTMENT REQUEST 1 021 documented in this encounter Care Teams Physical Education Specialist Relationship Specialty Start Date End Date Linda Blancas MD [address] [place] [address] 30 [place] [address] PCP - General 01/06/11 Adolfo Carreno MD [address] [place] [phone] General Surgery 04/26/19 Augustina Colin MD PhD [address] [place] [phone] Medical Oncology 04/26/19 documented as of this encounter
--- OUTSIDE RECORDS SUMMARY | 2024-03-20 14:54 | XMS_ITS | Encounter Summary ---
Author Organization [facility] Address [address] [place] [address] Care Team Providers Care Software Security Architect Name Role Phone Linda Blancas MD Primary Care Provider [phone] Adolfo Carreno MD Unavailable [phone] Augustina Colin MD PhD Unavailable Unavailable Encounter Details Date Type Department Care Team (Latest Contact Info) Description 03/19/2021 10:30 EDT Phlebotomy Only [facility] Cancer Center Hematology & Oncology - Main [place] [address] [place] [address] Blood Doctor, [facility] Hem Onc Metastatic breast cancer (HCC-CMS) (HCC) [...] Progress Notes * Patricia Rodriguez MA - 03/19/2021 1030 EDT Venipuncture performed for Dittus Per orders of Dittus Number of attempts 1 right ac PC I was supervised by Ades who was present and immediately available in the office suite. PATRICIA RODRIGUEZ MA 03/19/2021 10:44 documented in this encounter Plan of Treatment Upcoming Encounters Date Type Department Care Team (Late st Contact Info) Description 04/02/2024 10:30 EDT Appointment [facility] Inter[facility] Radiology Unit [address] [place] [address] [phone] 04/02/2024 15:15 EDT Office Visit [facility] Surgical Oncology - [address] [phone] Adolfo Carreno MD 111 [facility], Level [address] [place] [phone] 04/05/2024 9:30 EDT Telemedicine [facility] Palliative Care Services [address] [place], [place] [phone] Chichi Woods MD 111 [facility], [address] [place] [phone] 04/11/2024 15:00 EDT Telemedicine [facility] Hematology & Oncology - [address] [phone] Alisson Carreon MD [address] [place] [address] 2 [place] [phone] 04/13/2024 13:30 EDT Appointment [facility] Hematology & Oncology - [address] [phone] 04/13/2024 14:00 EDT Appointment [facility] Hematology & Oncology [address] [phone] 04/16/2024 10:00 EST Telemedicine [facility] - [facility] [address] [place] [address] Chichi Woods MD [address] [place] [address] [phone] 04/24/2024 9:00 EST Appointment [facility] [place] [facility] Radiology CT Outpatient - [address] [phone] 04/24/2024 11:00 EST Appointment [facility] Breast Imaging - [address] [phone] 04/27/2024 12:00 EST Appointment [facility] Hematology & Oncology - [address] [phone] 05/02/2024 15:00 EST Telemedicine [facility] Hematology & Oncology - [address] [phone] Alisson Carreon MD [address] [place] [address], [facility] 2 [place] [phone] 05/04/2024 10:15 EST Ancillary Procedure [facility] Cardiology - [address] [place], [place] [phone] 05/04/2024 11:30 EST Appointment [facility] Hematology & Oncology - [address] [phone] 05/04/2024 12:00 EST Appointment [facility] Hematology & Oncology - [address] [phone] 06/12/2024 13:00 EST Appointment [facility] [place] [facility] Radiology CT - [address] [phone] documented as of this encounter Procedures Procedure Name Priority Date/Time Associated Diagnosis Comments COMPREHENSIVE METABOLIC PANEL (ONCOLOGY USE ONLY-INC MG) STAT 03/19/2021 10:43 EDT Metastatic breast cancer (HCC-CMS) (HCC) (HCC-CMS) COMPLETE BLOOD COUNT AND DIFFERENTIAL STAT 03/19/2021 10:43 EDT Metastatic breast cancer (HCC-CMS) (HCC) (HCC-CMS) documented in this encounter Results * (ABNORMAL) COMPLETE BLOOD COUNT AND DIFFERENTIAL (03/19/2021 10:43 EDT) WBC 5.11 4.00 - 12.40 K/cmm 03/19/2021 11:02 [facility] RBC 4.11 3.86 - 5.04 M/cmm 03/19/2021 11:02 [facility] Hemoglobin 13.1 11.6 - 15.2 gm/dL 03/19/2021 11:02 [facility] HCT 39.4 34.9 - 44.4 % 03/19/2021 11:02 [facility] MCV 96 81 - 98 fl 03/19/2021 11:02 [facility] MCH 31.9 26.7 - 33.3 pg 03/19/2021 11:02 [facility] MCHC 33.2 32.1 - 35.9 gm/dL 03/19/2021 11:02 [facility] RDW-CV 12.3 <14.7 % 03/19/2021 11:02 [facility] RDW-SD 42.6 <50.4 fl 03/19/2021 11:02 [facility] PLT 225 141 - 377 K/cmm 03/19/2021 11:02 [facility] MPV 9.9 9.5 - 12.7 fl 03/19/2021 11:02 [facility] % Neutrophils 38.8 % 03/19/2021 11:02 [facility] % Lymphocytes 44.4 % 03/19/2021 11:02 [facility] % Monocytes 11.9 % 03/19/2021 11:02 [facility] % Eosinophils 3.9 % 03/19/2021 11:02 [facility] % Basophils 0.8 % 03/19/2021 11:02 [facility] % Immature Grans 0.2 % 03/19/20 11:02 [facility] Absolute Neutrophils 1.98(L) 2.20 - 8.85 K/cmm 03/19/2021 11:02 [facility] Absolute Lymphocytes 2.27 1.09 - 3.30 K/cmm 03/19/2021 11:02 [facility] Absolute Monocytes 0.61 0.10 - 0.80 K/cmm 03/19/2021 11:02 [facility] Absolute Eosinophils 0.20 0.03 - 0.61 K/cmm 03/19/2021 11:02 [facility] ABS Basophils 0.04 0.01 - 0.11 K/cmm 03/19/2021 11:02 [facility] Absolute Immature Grans 0.01 0.00 - 0.06 K/cmm 03/19/2021 11:02 [facility] Type of Differential: Auto 03/19/2021 11:02 [facility] Blood VENOUS BLOOD / Unknown Venipuncture / Unknown 03/19/2021 10:43 EDT 03/19/2021 10:48 EDT Augustina Colin MD PhD PACKAGES & DNA PROBE ORDERABLES [facility] [address] [place] [address] * COMPREHENSIVE METABOLIC PANEL (ONCOLOGY USE ONLY-INC MG) (03/19/2021 10:43 EDT) Sodium 142 136 - 145 mmol/L 03/19/2021 11:10 [facility] Potassium 4.0 3.5 - 5.0 mEq/L 03/19/2021 11:10 [facility] Chloride 105 96 - 110 mEq/L 03/19/2021 11:10 [facility] CO2 Total 30 22 - 32 mEq/L 03/19/2021 11:10 [facility] Glucose 70 70 - 100 mg/dL 03/19/2021 11:10 [facility] BUN 17 10 - 26 mg/dL 03/19/2021 11:10 [facility] Creatinine 0.67 0.52 - 1.04 mg/dL 03/19/2021 11:10 [facility] eGFR 97 >60 mL/min/1.7 3m2 03/19/2021 11:10 [facility] Comment:eGFR calculated gordo ureña CKD-EPI equation for non- Americans. Multiply eGFR by 1.16 for patients. Total Protein 6.8 6.3 - 8.2 g/dL 03/19/2021 11:10 [facility] Albumin 4.2 3.4 - 4.9 g/dL 03/19/2021 11:10 [facility] Alkaline Phosphatase 75 38 - 126 U/L 03/19/2021 11:10 [facility] AST 38 15 - 46 U/L 03/19/2021 11:10 [facility] ALT 25 <35 U/L 03/19/2021 11:10 EDT [facility] Bilirubin, Total <0.5 <1.4 mg/dL 03/19/20 11:10 EDT [facility] Calcium 9.1 8.5 - 10.5 mg/dL 03/19/2021 11:10 EDT [facility] Calculated Calcium 8.9 8.5 - 10.5 mg/dL 03/19/2021 11:10 EDT [facility] Magnesium 2.1 1.7 - 2.8 mg/dL 03/19/2021 11:10 EDT [facility] Blood VENOUS BLOOD / Unknown Venipuncture / Unknown 03/19/2021 10:43 EDT 03/19/2021 10:48 EDT Augustina Colin MD PhD CHEMISTRY & BLOOD GA S ORDERABLES Performing Organization Address City/State/[facility] Co de Phone Number [facility] [address] [place] [address] documented in this encounter Visit Diagnoses Diagnosis Metastatic breast cancer- Primary documented in this encounter Care Teams Software Security Architect Relationship Specialty Start Date End Date Linda Blancas MD [facility] [address] [place] [address] PCP - General 01/06/11 Adolfo Carreno MD [address] [place] [phone] General Surgery 04/26/19 Augustina Colin MD PhD [address] [place] [phone] Medical Oncology 04/26/19 documented as of this encounter
--- OUTSIDE RECORDS SUMMARY | 2024-03-20 14:54 | XMS_ITS | Encounter Summary ---
Author Organization [facility] Address [address] [place] [address] Care Team Providers Care Wiring Mechanic Name Role Phone Linda Blancas MD Primary Care Provider [phone] Adolfo Carreno MD Unavailable [phone] Augustina Colin MD PhD Unavailable Unavailable Reason for Visit * Reason Comments Injections Encounter Details Date Type Department Care Team (Latest Contact Info) Description 04/16/2021 14:38 EDT - 04/16/2021 23:59 EDT Hospital Encounter [email or web address] Cancer Center Hematology & Oncology - Main [place] [address] [place] [address] Malignant neoplasm of right female breast, unspecified [...] Sign Reading Time Taken Comments Blood Pressure 136/69 04/16/2021 1440 EDT Pulse 86 04/16/2021 1440 EDT Temperature 36.7 ??C (98 ??F) 04/16/2021 1440 EDT Respiratory Rate 16 04/16/2021 1440 EDT Oxygen Saturation 99% 04/16/2021 1440 EDT Inhaled Oxygen Concentration - - Weight 62.8 kg (138 lb 8 oz) 04/16/2021 1440 EDT Height - - Body Mass Index 26.28 03/19/2021 1045 EDT documented in this encounter [...] Tablets by mouth as needed. 12/07/2023 mv-mn/C/glutamin/lysin /[id number] (AIRBORNE, ASCORBATE SODIUM, ORAL) Take by mouth [...] in this encounter Progress Notes * Kayla Altamirano, RN - 04/16/2021 1500 EDT Out-patient Injection Note Patient presents to clinic today for cycle # 15 day # 1 of Faslodex treatment plan. Patient feels well today Reviewed lab results with patient. Parameters for today???s treatment met. Patient received 500 mg in bilateral upper outer quadrants of gluteus. Patient tolerating therapy. Reviewed side effect profile. Patient education: Patient verbally educated on all medications administered today, side effects, and symptom management. Patient verbally expressed understanding of education provided no barriers identified Patient and family encouraged to call clinic with any issues. I was supervised by Dr. Mckeon who was present and immediately available in the office suite. KAYLA ALTAMIRANO RN documented in this encounter Miscellaneous Notes * Addendum Note - Nadeen Gonzalez - 04/16/2021 1500 EDTEncounter addended by: Nadeen Gonzalez on: 05/14/2021 15:51 Actions taken: Charge Capture section accepted documented in this encounter Plan of Treatment Upcoming Encounters Date Type Department Care Team (Late st Contact Info) Description 04/02/2024 10:30 EDT Appointment [facility] Interventional Radiology Unit [address] [place] [address] [phone] 04/02/2024 15:15 EDT Office Visit [facility] Surgical Oncology - [address] [phone] Adolfo Carreno MD [address] [place] [address] 2 [place] [phone] 04/05/2024 9:30 EDT Telemedicine [facility] Palliative Care Services [address] [place] [address] Chichi Woods MD [address] [place] [address] [phone] 04/11/2024 15:[address] [facility] Hematology & Oncology [address] [phone] Alisson Carreon MD [address] [place] [address] [phone] 04/13/2024 13:[address] [facility] Hematology & Oncology [address] 444201 04/13/2024 14:[address] [facility] Hematology & Oncology [address] [phone] 04/16/2024 10:00 EST Telemedicine [facility] Palliative Care Services [address] [place] [address] [phone] Chichi Woods MD [address] [place] [address], [address] [place] [phone] 04/24/2024 9:00 EST [facility]ointment [facility] Radiology [facility] Outpatient - [address] [id number] 04/24/2024 11:00 EST Appointment [facility] Breast Imaging - [facility] [address] [place] [address] [place], [place] 078621 04/27/2024 12:[address] [facility] Hematology & Oncology [address] [phone] 05/02/2024 15:[address] [facility] Hematology & Oncology [address] [phone] Alisson Carreon MD [address] [place] [address], [address] [place] [phone] 05/04/2024 10:15 EST Ancillary Procedure [facility] Cardiology - [address] [place], [place] [phone] 05/04/2024 11:[address] [facility] Hematology & Oncology [address] [phone] 05/04/2024 12:[address] [facility] Hematology & Oncology - [address] [phone] 06/12/2024 13:00 EST Appointment [facility] Radiology CT - [address] [phone] documented as of this encounter Visit Diagnoses Diagnosis Malignant neoplasm of right female breast, unspecified estrogen receptor status, unspecified site of breast (HCC-CMS)- Primary documented in this encounter Administered Medications Inactive Administered Medications - up to 3 most recent administrations Medication Order MAR Action Action Date Dose Rate Site fulvestrant (FASLODEX) injection 500 mg 500 mg, intramuscular, NOW X1, 1 dose, On Michelle 04/16/21 at 1545, Routine Given 04/16/2021 15:34 EDT 500 mg documented in this encounter Orders Appointment Requests Count Last Ordered Date Fi rst Ordered Date ONCBCN INJECTION APPOINTMENT REQUEST 1 09/2020 documented in this encounter Care Teams Wiring Mechanic Relationship Specialty Start Date End Date Linda Blancas MD [facility] [address] [place] [address] PCP - General 01/06/11 Adolfo Carreno MD [address] [place] [address] 2 [place] [phone] General Surgery 04/26/19 Augustina Colin MD PhD [address] [place] [address] 2 [place] [phone] Medical Oncology 04/26/19 documented as of this encounter
--- OUTSIDE RECORDS SUMMARY | 2024-03-20 14:54 | XMS_ITS | Encounter Summary ---
Author Organization [facility] Address [address] [place] [address] Care Team Providers Care Metal Coater Operator Name Role Phone Linda Blancsa MD Primary Care Provider [phone] Adolfo Carreno MD Unavailable Augustina Colin MD PhD Unavailable Unavailable Reason for Referral * Prior Authorization (Routine) - Closed Specialty Diagnoses / Procedures [facility] Referred To Contact Infusion Therapy Diagnoses Metastatic breast cancer Augustina Colin MD PhD [facility] [address] [place] [address] Referral ID Status Reason Start Date Expiration Date V isits Requested Visits Authorized [id number] Closed Specialty Services Required 12/02/2020 06/12/2021 1 1 Question Answer Is this appt for transfusion, medication, test or injection? Infusion How many infusions need to be ordered for appt? 1 Infusion Name Other Please specify: Zometa Infusion Dose 4 mg What is the infusion frequency? every six months Is this the first dose of infusion(s)? No Are labs to be obtained during the appt? Yes Are preliminary tests complete (like MRI)? No Have orders been place for this appt? (i.e.: Blood Transfusion Order Set, Therapy Plan, Lab Orders, Supportive Plan, Etc) Yes Comments Due next in January. Tx plan dated for 01/28 but can be a week before that. Last tx 08/06 and she's q 6 months. Reason for Visit * Prior Authorization (Routine) - Closed Specialty Diagnoses / Procedures Referred By Contac t Referred To Contact Infusion Therapy Diagnoses Metastatic breast cancer Augustina Colin MD PhD [facility] [address] [place] [address] Referral ID Status Reason Start Date Expiration Date V isits Requested Visits Authorized [id number] Closed Specialty Services Required 12/02/2020 06/12/2021 1 1 Encounter Details Date Type Department Care Team (Latest Contact Info) Description 01/27/2021 7:30 EDT - 01/27/2021 23:59 EDT Hospital Encounter [facility] [address] [place] [address] Augustina Colin MD PhD Metastatic breast cancer (HCC-CMS) (Primary Dx); Osteopenia of necks of [...] 14:28 EDT documented as of this encounter Last Filed Vital Signs Vital Sign Reading Time Taken Comments Blood Pressure 118/64 01/27/2021 0938 EDT Pulse 74 01/27/2021 0938 EDT Temperature 36.4 ??C (97.5 ??F) 01/27/2021 0938 EDT Respiratory Rate 18 01/27/2021 0938 EDT Oxygen Saturation 99% 01/27/2021 0938 EDT Inhaled Oxygen Concentration - - Weight [...] Tablets by mouth as needed. 12/07/2023 mv-mn/C/glutamin/lysin/ [id number] (AIRBORNE, ASCORBATE SODIUM, ORAL) Take by mouth [...] Code Departure Means Destination Home or Self Intermediate documented in this encounter Progress Notes * Paz Rodriguez RN - 01/27/2021 0845 EDT 0845:Sunshine Pleitez arrived to [facility] for Zometa infusion related to diagnosis code of C50.919. Identification verified verbally and on patient wristband. PIV was placed by RN per protocol. Patient tolerated well. Premedications: Main Medication and dose: 0856 Infusion started. 0924: Infusion completed. Patient tolerated without s/s of adverse reaction. IV access removed. Patient tolerated well. Dry sterile dressing applied. Patient education reviewed. Handout/verbally. Patient verbalizes understanding. patient Discharged to home. documented in this encounter Plan of Treatment Upcoming Encounters Date Type Department Care Team (Late st Contact Info) Description 04/02/2024 10:30 EDT Appointment [facility] Interventional Radiology Unit [address] [place], [place] [address] 04/02/2024 15:15 EDT Office Visit [facility] Surgical Oncology - [facility] [address] [place], [place] [address] Adolfo Carreno MD 111 [facility], Level 2 [place] [phone] 04/05/2024 9:30 EDT Telemedicine [facility]iative [facility] Services [address] [place], [place] 7460[address] Chichi Woods MD [address] [phone] 04/11/2024 15:00 EDT Telemedicine [facility] Hematology & Oncology - [address] [phone] Alisson Carreon MD [address] [place] [address] 2 [place] [phone] 04/13/2024 13:30 EDT Appointment [facility] Hematology & Oncology - [address] [id number] 04/13/2024 14:00 EDT Appointment [facility] Hematology & Oncology [address] [phone] 04/16/2024 10:00 EST Telemedicine [facility] - [facility] Palliative Care Services [address] [place] [address] [phone] Chichi Woods MD [address] [place] [phone] 04/24/2024 9:00 EST Appointment [facility] Radiology CT Outpatient - [address] [id number] 04/24/2024 11:00 EST Appointment [facility] Breast Imaging - [address] [phone] 04/27/2024 12:00 EST Appointment [facility]ematology & Oncology - [address] [phone] 05/02/2024 15:00 EST Telemedicine [facility] Hematology & Oncology - [address] [phone] Alisson Carreon MD [address] [place] [address] 2 [place] [phone] 05/04/2024 10:15 EST Ancillary Procedure [facility] Cardiology - [place] [address] [place] [address] 05/04/2024 11:30 EST Appointment [facility] Hematology & Oncology [address] [phone] 05/04/2024 12:00 EST Appointment [facility] Hematology & Oncology [facility] [address] [place], [place] [address] 06/12/2024 13:00 EST Appointment [facility] Radiology CT [address] [id number] Scheduled Referrals Name Type Priority Associated Diagnoses Order Schedule AMB CONS/FOLLOW UP INFUSION Outpatient Referral Routine Metastatic breast cancer ([facility]) 1 Occurrences starting 01/27/2021 until 01/27/2021 documented as of this encounter Visit Diagnoses Diagnosis Metastatic breast cancer- Primary Osteopenia of necks of both femurs documented in this encounter Administered Medications Inactive Administered Medications - up to 3 most recent administrations Medication Order MAR Action Action Date Dose Rate Site zoledronic acid (ZOMETA) IVPB 4 mg 4 mg, intravenous, Administer over 20 Minutes, NOW X1, 1 dose, On Tue01/27/21 at 0815, Routine Rate Change 01/27/2021 9:04 EDT New Bag 01/27/2021 8:56 EDT 4 mg documented in this encounter Orders Medications Ordered That Vj ht Not Have Been Administered Count Last Ordered Date First Ordered Date alteplase (CATHFLO ACTIVASE) injection 2 mg 1 01/27/2021 diphenhydrAMINE (BENADRYL) injection 50 mg 1 01/27/2021 EPINEPHrine (ADRENALIN) injection 0.3 mg 1 01/27/2021 heparin (PF) lock flush 500 Units 1 021 methylPREDNISolone sod suc(P F) (SOLU-MEDROL) injection 40 mg 1 01/27/2021 sodium chloride 0.9 % (flush) flush 20 mL 1 01/27/2021 sodium chloride 0.9 % (NS) infusion 1 01/27 Nursing Count Last Ordered Date First Orde red Date INFORMED CONSENT 1 01/27/2021 documented in this encounter Care Teams Metal Coater Operator Relationship Specialty Start Date End Date Linda Blancas MD [facility] [address] [place] [address] PCP - General 01/06/11 Adolfo Carreno MD [address] [place] [phone] General Surgery 04/26/19 Augustina Colin MD PhD [address] [place] [address] 2 [place] [phone] Medical Oncology 04/26/19 documented as of this encounter
--- OUTSIDE RECORDS SUMMARY | 2024-03-20 14:54 | XMS_ITS | Encounter Summary ---
Author Organization [facility] Address [address] [place] [address] Care Team Providers Care Police Crime Scene Technician Name Role Phone Linda Blancas MD Primary Care Provider [phone] Adolfo Carreno MD Unavailable [phone] Augustina Colin MD PhD Unavailable Unavailable Encounter Details Date Type Department Care Team (Latest Contact Info) Description 02/20/2021 15:00 EDT Phlebotomy Only [facility] Hematology & Oncology - Main [place] [address] [place] [address] Blood Doctor, [facility] Hem Onc Metastatic breast cancer (HCC-CMS) (Primary Dx) Social History Tobacco Use [...] Progress Notes * Sheri Chandler MA - 02/20/2021 1500 EDT Venipuncture performed for Dittus Per orders of Dittus Number of attempts 1 lt ac I was supervised by Supa who was present and immediately available in the office suite. SHERI CHANDLER MA 02/20/2021 15:05 documented in this encounter Plan of Treatment Upcoming Encounters Date Type Department Care Team (Late st Contact Info) Description 04/02/2024 10:30 EDT Appointment [facility] Interventional Radiology Unit [address] [place] [address] [phone] 04/02/2024 15:15 EDT Office Visit [facility] Surgical Oncology - [address] [phone] Adolfo Carreno MD 111 [facility], Level 2 [place] [phone] 04/05/2024 9:30 EDT Telemedicine [facility] - [facility] Palliative Care Services [address] [place], [place] [phone] Chichi Woods MD 111 [facility], [address] [phone] 04/11/2024 15:00 EDT Telemedicine [facility] Hematology & Oncology - [address] [phone] Alisson Carreon MD [address] [place] [address] 2 [place] [phone] 04/13/2024 13:30 EDT Appointment [facility] Hematology & Oncology - [address] [phone] 04/13/2024 14:00 EDT Appointment [facility] Hematology & Oncology [address] [phone] 04/16/2024 10:00 EST Telemedicine [facility] - [facility] Palliative Care Services [address] [place] [address] [phone] Chichi Woods MD [address] [place] [phone] 04/24/2024 9:00 EST Appointment [facility] Radiology CT Outpatient - [address] [id number] 04/24/2024 11:00 EST Appointment [facility] Breast Imaging - [facility] [address] [phone] 04/27/2024 12:00 EST Appointment [facility] Hematology & Oncology - [address] [phone] 05/02/2024 15:00 EST Telemedicine [facility] Hematology & Oncology - [address] [phone] Alisson Carreon MD [address] [place] [address], [facility] [address] [place] [phone] 05/04/2024 10:15 EST Ancillary Procedure [facility] Cardiology - [address] [place] [address] 05/04/2024 11:30 EST Appointment [facility] Hematology & Oncology - [address] [phone] 05/04/2024 12:00 EST Appointment [facility] Hematology & Oncology - [address] [phone] 06/12/2024 13:00 EST Appointment [facility] Radiology CT - [address] [phone] documented as of this encounter Procedures Procedure Name Priority Date/Time Associated Diagnosis Comments COMPREHENSIVE METABOLIC PANEL (ONCOLOGY USE ONLY-INC MG) STAT 02/20/2021 15:19 EDT Metastatic breast cancer ([facility]) COMPLETE BLOOD COUNT AND DIFFERENTIAL STAT 02/20/2021 15:19 EDT Metastatic breast cancer (HCC-CMS) documented in this encounter Results * (ABNORMAL) COMPLETE BLOOD COUNT AND DIFFERENTIAL (02/20/2021 15:19 EDT) WBC 9.41 4.00 - 12.40 K/cmm 02/20/2021 15:34 [facility] RBC 4.14 3.86 - 5.04 M/cmm 02/20/2021 15:34 [facility] Hemoglobin 13.5 11.6 - 15.2 gm/dL 02/20/2021 15:34 [facility] HCT 40.5 34.9 - 44.4 % 02/20/2021 15:34 [facility] MCV 98 81 - 98 fl 02/20/2021 15:34 [facility] MCH 32.6 26.7 - 33.3 pg 02/20/2021 15:34 [facility] MCHC 33.3 32.1 - 35.9 gm/dL 02/20/2021 15:34 [facility] RDW-CV 12.2 <14.7 % 02/20/2021 15:34 [facility] RDW-SD 44.1 <50.4 fl 02/20/2021 15:34 [facility] PLT 261 141 - 377 K/cmm 02/20/2021 15:34 [facility] MPV 10.0 9.5 - 12.7 fl 02/20/2021 15:34 [facility] % Neutrophils 54.1 % 02/20/2021 15:34 [facility] % Lymphocytes 30.3 % 02/20/2021 15:34 [facility] % Monocytes 8.9 % 02/20/2021 15:34 [facility] % Eosinophils 5.7 % 02/20/2021 15:34 [facility] % Basophils 0.7 % 02/20/2021 15:34 [facility] % Immature Grans 0.3 % 02/21/20 15:34 [facility] Absolute Neutrophils 5.08 2.20 - 8.85 K/cmm 02/20/2021 15:34 [facility] Absolute Lymphocytes 2.85 1.09 - 3.30 K/cmm 02/20/2021 15:34 [facility] Absolute Monocytes 0.84(H) 0.10 - 0.80 K/cmm 02/20/2021 15:34 [facility] Absolute Eosinophils 0.54 0.03 - 0.61 K/cmm 02/20/2021 15:34 [facility] ABS Basophils 0.07 0.01 - 0.11 K/cmm 02/20/2021 15:34 [facility] Absolute Immature Grans 0.03 0.00 - 0.06 K/cmm 02/20/2021 15:34 [facility] Type of Differential: Auto 02/20/2021 15:34 [facility] Blood VENOUS BLOOD / Unknown Venipuncture / Unknown 02/20/2021 15:19 EDT 02/20/2021 15:26 EDT Augustina Colin MD PhD PACKAGES & DNA PROBE ORDERABLES [facility] [address] [place] [address] * COMPREHENSIVE METABOLIC PANEL (ONCOLOGY USE ONLY-INC MG) (02/20/2021 15:19 EDT) Sodium 139 136 - 145 mmol/L 02/20/2021 15:45 [facility] Potassium 4.1 3.5 - 5.0 mEq/L 02/20/2021 15:45 [facility] Chloride 101 96 - 110 mEq/L 02/20/2021 15:45 [facility] CO2 Total 29 22 - 32 mEq/L 02/20/2021 15:45 [facility] Glucose 85 70 - 100 mg/dL 02/20/2021 15:45 [facility] BUN 20 10 - 26 mg/dL 02/20/2021 15:45 [facility] Creatinine 0.63 0.52 - 1.04 mg/dL 02/20/2021 15:45 [facility] eGFR 98 >60 mL/min/1.7 3m2 02/20/2021 15:45 [facility] Comment:eGFR calculated gordo ureña CKD-EPI equation for non- Americans. Multiply eGFR by 1.16 for patients. Total Protein 7.0 6.3 - 8.2 g/dL 02/20/2021 15:45 [facility] Albumin 4.3 3.4 - 4.9 g/dL 02/20/2021 15:45 [facility] Alkaline Phosphatase 79 38 - 126 U/L 02/20/2021 15:45 [facility] AST 30 15 - 46 U/L 02/20/2021 15:45 [facility] ALT 20 <35 U/L 02/20/2021 15:45 [facility] Bilirubin, Total <0.5 <1.4 mg/dL 02/21/20 15:45 EDT [facility] Calcium 9.8 8.5 - 10.5 mg/dL 02/20/2021 15:45 EDT [facility] Calculated Calcium 9.6 8.5 - 10.5 mg/dL 02/20/2021 15:45 EDT [facility] Magnesium 2.2 1.7 - 2.8 mg/dL 02/20/2021 15:45 EDT [facility] Blood VENOUS BLOOD / Unknown Venipuncture / Unknown 02/20/2021 15:19 EDT 02/20/2021 15:27 EDT Augustina Colin MD PhD CHEMISTRY & BLOOD GA S ORDERABLES Performing Organization Address City/State/[facility] Co de Phone Number [facility] [address] [place] [address] documented in this encounter Visit Diagnoses Diagnosis Metastatic breast cancer- Primary documented in this encounter Care Teams Police Crime Scene Technician Relationship Specialty Start Date End Date Linda Blancas MD [facility] [address] [place] [address] PCP - General 01/06/11 Adolfo Carreno MD [address] [place] [address] [phone] General Surgery 04/26/19 Augustina Colin MD PhD [address] [place] [phone] Medical Oncology 04/26/19 documented as of this encounter
--- OUTSIDE RECORDS SUMMARY | 2024-03-20 14:55 | XMS_ITS | Encounter Summary ---
Author Organization [facility] Address [address] [place] [address] Care Team Providers Care Granite Cutter Name Role Phone Linda Blancas MD Primary Care Provider [phone] Adolfo Carreno MD Unavailable [phone] Augustina Colin MD PhD Unavailable Unavailable Encounter Details Date Type Department Care Team (Late st Contact Info) Description 01/22/2021 14:30 EDT Phlebotomy Only [facility] ED Center 2 Phlebotomy [address], [place] [address] Office Analyst, Acc Phlebotomy Metastatic breast cancer (HCC-CMS) Social History Tobacco Use Types Packs/Day [...] [facility] Interventional Radiology Unit [address] [place] [address] [phone] 04/02/2024 15:15 EDT Office Visit [facility] Surgical Oncology - [address] [phone] Adolfo Carreno MD [address] [place] [address] [phone] 04/05/2024 9:30 EDT Telemedicine [facility] Palliative Care Services [address] [place] [address] [phone] Chichi Woods MD [address] [place] [address] [phone] 04/11/2024 15:00 EDT Telemedicine [facility] Hematology & Oncology - [address] [phone] Alisson Carreon MD [address] [place] [address] [phone] 04/13/2024 13:30 EDT Appointment [facility] Hematology & Oncology - [address] [phone] 04/13/2024 14:00 EDT Appointment [facility] Hematology & Oncology - [address] [address] 04/16/2024 10:00 EST Telemedicine [facility] - [facility] Palliative Care Services [address] [place] [address] [phone] Chichi Woods MD [address] [place] [address], [address] [phone] 04/24/2024 9:00 EST Appointment [facility] Radiology CT Outpatient - [address] [id number] 04/24/2024 11:00 EST Appointment [facility] Breast Imaging - [address] [id number] 04/27/2024 12:00 EST Appointment [facility] Hematology & Oncology - [address] [phone] 05/02/2024 15:00 EST Telemedicine [facility] Hematology & Oncology [address] 201371 Alisson Carreon MD [address] [place] [address], Level [address] [place] [phone] 05/04/2024 10:15 EST Ancillary Procedure [facility] Cardiology - [place] [address] 05/04/2024 11:30 EST Appointment [facility] Hematology & Oncology [address] [address] 05/04/2024 12:00 EST Appointment [facility] Hematology & Oncology - [address] [phone] 06/12/2024 13:00 [facility] Radiology CT - [address] [address] documented as of this encounter Procedures Procedure Name Priority Date/Time Associated Diagnosis Comments COMPREHENSIVE METABOLIC PANEL (ONCOLOGY USE ONLY-INC MG) STAT 01/22/2021 14:52 EDT Metastatic breast cancer (HCC-[facility]) COMPLETE BLOOD COUNT AND DIFFERENTIAL STAT 01/22/2021 14:52 EDT Metastatic breast cancer (HCC-[facility]) documented in this encounter Results * COMPLETE BLOOD COUNT AND DIFFERENTIAL (01/22/2021 14:52 EDT) WBC 7.87 4.00 - 12.40 K/cmm 01/22/2021 15:13 [facility] RBC 4.33 3.86 - 5.04 M/cmm 01/22/2021 15:13 [facility] Hemoglobin 14.2 11.6 - 15.2 gm/dL 01/22/2021 15:13 [facility] HCT 41.4 34.9 - 44.4 % 01/22/2021 15:13 [facility] MCV 96 81 - 98 fl 01/22/2021 15:13 [facility] MCH 32.8 26.7 - 33.3 pg 01/22/2021 15:13 [facility] MCHC 34.3 32.1 - 35.9 gm/dL 01/22/2021 15:13 [facility] RDW-CV 12.3 <14.7 % 01/22/2021 15:13 [facility] RDW-SD 43.5 <50.4 fl 01/22/2021 15:13 [facility] PLT 273 141 - 377 K/cmm 01/22/2021 15:13 [facility] MPV 10.2 9.5 - 12.7 fl 01/22/2021 15:13 [facility] % Neutrophils 58.6 % 01/22/2021 15:13 [facility] % Lymphocytes 30.2 % 01/22/2021 15:13 [facility] % Monocytes 7.6 % 01/22/2021 15:13 [facility] % Eosinophils 2.9 % 01/22/2021 15:13 [facility] % Basophils 0.4 % 01/22/2021 15:13 [facility] % Immature Grans 0.3 % 01/23/20 15:13 [facility] Absolute Neutrophils 4.61 2.20 - 8.85 K/cmm 01/22/2021 15:13 [facility] Absolute Lymphocytes 2.38 1.09 - 3.30 K/cmm 01/22/2021 15:13 [facility] Absolute Monocytes 0.60 0.10 - 0.80 K/cmm 01/22/2021 15:13 [facility] Absolute Eosinophils 0.23 0.03 - 0.61 K/cmm 01/22/2021 15:13 [facility] ABS Basophils 0.03 0.01 - 0.11 K/cmm 01/22/2021 15:13 [facility] Absolute Immature Grans 0.02 0.00 - 0.06 K/cmm 01/22/2021 15:13 [facility] Type of Differential: Auto 01/22/2021 15:13 [facility] Blood VENOUS BLOOD / Unknown Venipuncture / Unknown 01/22/2021 14:52 EDT 01/22/2021 15:00 EDT Augustina Colin MD PhD PACKAGES & DNA PROBE ORDERABLES [facility] [address] [place] [address] * (ABNORMAL) COMPREHENSIVE METABOLIC PANEL (ONCOLOGY USE ONLY-INC MG) (01/22/2021 14:52 EDT) Sodium 141 136 - 145 mmol/L 01/22/2021 15:21 [facility] Potassium 4.3 3.5 - 5.0 mEq/L 01/22/2021 15:21 [facility] Chloride 105 96 - 110 mEq/L 01/22/2021 15:21 [facility] CO2 Total 25 22 - 32 mEq/L 01/22/2021 15:21 [facility] Glucose 121(H) 70 - 100 mg/dL 01/22/2021 15:21 [facility] BUN 20 10 - 26 mg/dL 01/22/2021 15:21 [facility] Creatinine 0.71 0.52 - 1.04 mg/dL 01/22/2021 15:21 [facility] eGFR 94 >60 mL/min/1.7 3m2 01/22/2021 15:21 [facility] Comment:eGFR calculated gordo ureña CKD-EPI equation for non- Americans. Multiply eGFR by 1.16 for patients. Total Protein 7.2 6.3 - 8.2 g/dL 01/22/2021 15:21 [facility] Albumin 4.6 3.4 - 4.9 g/dL 01/22/2021 15:21 [facility] Alkaline Phosphatase 83 38 - 126 U/L 01/22/2021 15:21 [facility] AST 33 15 - 46 U/L 01/22/2021 15:21 [facility] ALT 22 <35 U/L 01/22/2021 15:21 [facility] Bilirubin, Total <0.5 <1.4 mg/dL 01/23/20 15:21 [facility] Calcium 9.7 8.5 - 10.5 mg/dL 01/22/2021 15:21 [facility] Calculated Calcium 9.2 8.5 - 10.5 mg/dL 01/22/2021 15:21 [facility] Magnesium 2.1 1.7 - 2.8 mg/dL 01/22/2021 15:21 [facility] Blood VENOUS BLOOD / Unknown Venipuncture / Unknown 01/22/2021 14:52 EDT 01/22/2021 15:00 EDT Augustina Colin MD PhD CHEMISTRY & BLOOD GA S ORDERABLES [facility] [address] [place] [address] documented in this encounter Visit Diagnoses Diagnosis Metastatic breast cancer documented in this encounter Care Teams Granite Cutter Relationship Specialty Start Date End Date Linda Blancas MD [facility] [address] [place] [address] PCP - General 01/06/11 Adolfo Carreno MD [address] [place] [address] [phone] General Surgery 04/26/19 Augustina Colin MD PhD [address] [place] [phone] Medical Oncology 04/26/19 documented as of this encounter
--- OUTSIDE RECORDS SUMMARY | 2024-03-20 14:55 | XMS_ITS | Encounter Summary ---
Author Organization [facility] Address [address] [place] [address] Care Team Providers Care Obstetrical Tech Name Role Phone Linda Blancas MD Primary Care Provider [phone] Adolfo Carreno MD Unavailable Augustina Colin MD PhD Unavailable Unavailable Reason for Visit * Reason Onset Date Comments Appointment Related 12/08/2020 Encounter Details Date Type Department Care Team (Late st Contact Info) Description 12/08/2020 Telephone [facility] Ambulatory Infusion Center [address] [place], [place] [phone] Augustina Colin, PhD Appointment Related Social History [...] have Coronavirus / COVID-19? No / Unsure 11/24/2020 10:04 EDT documented as of this encounter Functional [...] * Telephone Encounter - Yola Hoskins - 12/08/2020 0841 EDT LM requesting a call back for scheduling documented in this encounter Plan of Treatment Upcoming Encounters Date Type Department Care Team (Late st Contact Info) Description 04/02/2024 10:30 EDT Appointment [facility] Interventional Radiology Unit [address] [place] [address] [phone] 04/02/2024 15:15 EDT Office Visit [facility] Surgical Oncology - [address] [phone] Adolfo Carreno MD [address] [place] [address], [facility] [address] [place] [phone] 04/05/2024 9:30 EDT Telemedicine [facility] - [facility] Palliative Care Services [address] [place], [place] 220861 Chichi Woods MD [address] [place] [address], [address] [phone] 04/11/2024 15:00 EDT Telemedicine [facility] Hematology & Oncology - [address] [phone] Alisson Carreon MD [address] [place] [address], [address] [place] [phone] 04/13/2024 13:30 EDT Appointment [facility] Hematology & Oncology [address] [phone] 04/13/2024 14:00 EDT Appointment [facility] Hematology & Oncology [address] [phone] 04/16/2024 10:00 EST Telemedicine [facility] - [facility] Palliative Care Services [address] [place] [address] [phone] Chichi Woods MD [address] [place] [address], [address] [phone] 04/24/2024 9:00 EST Appointment [facility] Radiology CT Outpatient - [address] [id number] 04/24/2024 11:00 EST Appointment [facility] Breast Imaging - [facility] [address] [phone] 04/27/2024 12:00 EST Appointment [facility] Hematology & Oncology - [address] [phone] 05/02/2024 15:00 EST Telemedicine [facility] Hematology & Oncology - [address] [phone] Alisson Carreon MD [address] [place] [address], [address] [place] [phone] 05/04/2024 10:15 EST Ancillary Procedure [facility] Cardiology - [address] [place], [place] [phone] 05/04/2024 11:30 EST Appointment [facility] Hematology & Oncology - [address] [address] 05/04/2024 12:[address] [facility] Hematology & Oncology [address] [id number] 06/12/2024 13:00 EST Appointment [facility] Radiology CT - [address] [address] documented as of this encounter Visit Diagnoses Not on filedocumented in this encounter Care Teams Obstetrical Tech Relationship Specialty Start Date End Date Linda Blancas MD [facility] [address] [place] [address] PCP - General 01/06/11 Adolfo Carreno MD [address] [place] [address] [address] [place] [phone] General Surgery 04/26/19 Augustina Colin MD PhD [address] [place] [address] [address] [place] [phone] Medical Oncology 04/26/19 documented as of this encounter
--- OUTSIDE RECORDS SUMMARY | 2024-03-20 14:55 | XMS_ITS | Encounter Summary ---
Author Organization [facility] Address [address] [place] [address] Care Team Providers Care Field Machinist Name Role Phone Linda Blancas MD Primary Care Provider [phone] Adolfo Carreno MD Unavailable [phone] Augustina Colin MD PhD Unavailable Unavailable Reason for Referral * Radiology Services (Routine) - Closed Specialty Diagnoses / Procedures Referred By Contac t Referred To Contact Nuclear Medicine Diagnoses Malignant neoplasm of right female breast, unspecified estrogen receptor status, unspecified site of breast ([facility]) Procedures NM BONE WHOLE BODY NM BONE SCAN 3 PHASE Augustina Colin MD PhD Referral ID Status Reason Start Date Expiration Date Visits Re quested Visits Authorized [id number] Closed 09/03/2020 1 1 Reason for Visit * Radiology Services (Routine) - Closed Specialty Diagnoses / Procedures Referred By Contac t Referred To Contact Nuclear Medicine Diagnoses Malignant neoplasm of right female breast, unspecified estrogen receptor status, unspecified site of breast (HCC-CMS) Procedures NM BONE WHOLE BODY NM BONE SCAN 3 PHASE Augustina Colin MD PhD Referral ID Status Reason Start Date Expiration Date Visits Re quested Visits Authorized [id number] Closed 09/03/2020 1 1 Encounter Details Date Type Department Care Team (Latest Contact Info) Description 11/24/2020 10:00 EDT - 11/24/2020 10:02 EDT Hospital En[facility] Radiology Nuclear Medicine and PET - [address] [phone] Malignant neoplasm of right female breast, unspecified estrogen receptor status, unspecified site of breast ([facility]) Discharge Disposition: Home or Self Care Social [...] have Coronavirus / COVID-19? No / Unsure 11/20/2020 16:41 EDT documented as of this encounter Functional [...] Tablets by mouth as needed. 12/07/2023 mv-mn/C/glutamin/lysin/ [id number] ([place], ASCORBATE SODIUM, ORAL) Take by mouth [...] 10:30 EDT Appointment [facility] Interventional Radiology Unit [address] [place] [address] 04/02/2024 15:15 EDT Office Visit [facility] Surgical Oncology - [facility] [address] [place], [place] [phone] Adolfo Carreno MD [address] [facility], Level [address] [place] [phone] 04/05/2024 9:[address] [facility] Palliative Care Services [address] [place], [place] 020941 Chichi Woods MD [address] [place] [address] [address] [place] [phone] 04/11/2024 15:00 EDT Telemedicine [facility] Hematology & Oncology - [address] [phone] Alisson Carreon MD [address] [place] [address] [address] [place] [phone] 04/13/2024 13:30 EDT Appointment [facility] Hematology & Oncology [address] [phone] 04/13/2024 14:00 EDT Appointment [facility] Hematology & Oncology [address] [phone] 04/16/2024 10:00 EST Telemedicine [facility] - [facility] Palliative Care Services [address] [place] [address] [phone] Chichi Woods MD [address] [place] [address] [phone] 04/24/2024 9:00 EST Appointment [facility] Radiology CT Outpatient - [address] [id number] 04/24/2024 11:00 EST Appointment [facility] Breast Imaging - [address] [phone] 04/27/2024 12:00 EST Appointment [facility] Hematology & Oncology - [address] [phone] 05/02/2024 15:00 EST Telemedicine [facility] Hematology & Oncology - [address] [phone] Ailsson Carreon MD [address] [place] [address], [address] [place] [phone] 05/04/2024 10:15 EST Ancillary Procedure [facility] Cardiology - [address] [place] [address] 05/04/2024 11:30 EST Appointment [facility] Hematology & Oncology - [address] [phone] 05/04/2024 12:00 EST Appointment [facility] Hematology & Oncology [address] [phone] 06/12/2024 13:00 EST Appointment [facility] Radiology CT - [address] [phone] documented as of this encounter Procedures Procedure Name Priority Date/Time Associated Diagnosis Comments NM BONE WHOLE BODY Routine 11/24/2020 14 :12 EDT Malignant neoplasm of right female breast, unspecified estrogen receptor status, unspecified site of breast ([facility]) documented in this encounter Results * NM BONE WHOLE BODY (11/24/2020 14:12 EDT) Anatomical Region Laterality Modality Nuclear Medicine 11/24/2020 16:0 5 EDT Impressions 11/24/2020 16:05 EDT Resolution of increased uptake within the proximal left femur. Otherwise no change from prior. No new abnormalities. ?? I have personally reviewed the images and the above interpretation and agree with the findings. Narrative 11/24/2020 16:05 EDT NM BONE WHOLE BODY ??11/24/2020 1:00 PM Signs and Symptoms: ??Malignant neoplasm of the right female breast Comparison: Bone scans from 10/27/2016-08/11/2020, MR left hip 03/06/2020, MR lumbar spine 03/28/2020, cervical spine radiographs 03/07/2020 Technique: Approximately two hours after the IV injection of 18 mCi Tc-99m MDP, anterior and posterior whole body bone images were obtained. Findings: Increased radiotracer uptake within the degenerative changes of the cervical spine seen on comparison radiographs, unchanged. Unchanged lumbar uptake corresponding with prior spinal fusion and spondylolisthesis at L1-2. There has been resolution of the increased radiotracer uptake in the proximal left femoral neck. Focus of increased or tracer uptake in the left elbow corresponds to injection site. Increased uptake within both feet secondary to arthrosis. Procedure Note Sonny Georges MD - 11/24/2020 NM BONE WHOLE BODY 11/24/2020 1:00 PM Signs and Symptoms: Malignant neoplasm of the right female breast Comparison: Bone scans from 10/27/2016-08/11/2020, MR left hip 03/06/2020, MRlumbar spine 03/28/2020, cervical spine radiographs 03/07/2020 Technique: Approximately two hours after the IV injection of 18 mCi Tc-99m MDP,anterior and posterior whole body bone images were obtained. Findings: Increased radiotracer uptake within the degenerative changes of thecervical spine seen on comparison radiographs, unchanged. Unchanged lumbaruptake corresponding with prior spinal fusion and spondylolisthesis atL1-2. There has been resolution of the increased radiotracer uptake in theproximal left femoral neck. Focus of increased or tracer uptake in the left elbow corresponds toinjection site. Increased uptake within both feet secondary toarthrosis. IMPRESSION Resolution of increased uptake within the proximal left femur. Otherwiseno change from prior. No new abnormalities. I have personally reviewed the images and the above interpretation andagree with the findings. Augustina Colin MD PhD IMG NM ORDERABLES documented in this encounter Visit Diagnoses Diagnosis Malignant neoplasm of right female breast, unspecified estrogen receptor status, unspecified site of breast ([facility]) documented in this encounter Administered Medications Inactive Administered Medications - up to 3 most recent administrations Medication Order MAR Action Action Date Dose Rate Site technetium (Tc-99m) methylene diphosphonate (MDP) injection 18 millicurie 18 millicurie, radiopharm IV, NOW X1, 1 dose, On 11/24/20 at 1115, Routine, Imaging Protocol Orders Given 11/24/2020 10:52 EDT 18.51 millicuries documented in this encounter Care Teams Field Machinist Relationship Specialty Start Date End Date Linda Blancas MD [facility] [address] [place] [phone] PCP - General 01/06/11 Adolfo Carreno MD [address] [place] [address] [phone] General Surgery 04/26/19 Augustina Colin MD PhD [address] [place] [phone] Medical Oncology 04/26/19 documented as of this encounter
--- OUTSIDE RECORDS SUMMARY | 2024-03-20 14:55 | XMS_ITS | Encounter Summary ---
Author Organization [facility] Address [address] [place] [address] Care Team Providers Care Twister Hand Name Role Phone Linda Blancas MD Primary Care Provider Adolfo Carreno MD Unavailable [phone] Augustina Colin MD PhD Unavailable Unavailable Reason for Referral * Prior Authorization (Routine) - Closed Specialty Diagnoses / Procedures [facility] Referred To Contact Infusion Therapy Diagnoses Metastatic breast cancer Augustina Colin MD PhD [facility] [address] [place] [address] Referral ID Status Reason Start Date Expiration Date V isits Requested Visits Authorized [id number] Closed Specialty Services Required 12/02/2020 06/12/2021 1 [...] tx 08/06 and she's q 6 months. Encounter Details Date Type Department Care Team (Late st Contact Info) Description 11/26/2020 Orders Only [facility] Hematology & Oncology - [address] [address] Augustina Colin MD PhD Metastatic breast cancer (HCC-CMS) (Primary Dx) Social [...] as of this encounter Progress Notes * Kayla Altamirano RN - 11/26/2020 0930 [address]T [id number] [facility] 4 for Zometa. Tx plan in. Asked for mid-January. Patient gets Zometa q 6 months. documented in this encounter Miscellaneous Notes * Addendum Note - Kayla Altamirano, RN - 11/26/2020 0925 EDTAddended by: KAYLA ALTAMIRANO on: 12/02/2020 10:56 Modules accepted: Orders documented in this encounter Plan of Treatment Upcoming Encounters Date Type Department Care Team (Late st Contact Info) Description 04/02/2024 10:30 EDT Appointment [facility] Interventional Radiology Unit [address] [place] [address] [phone] 04/02/2024 15:15 EDT Office Visit [facility] Surgical Oncology - [address] 445951 Adolfo Carreno MD [address] [place] [address] [phone] 04/05/2024 9:30 EDT Telemedicine [facility] - [facility] Palliative Care Services [address] [place] [address] [phone] Chichi Woods MD [address] [place] [address] [phone] 04/11/2024 15:00 EDT Telemedicine [facility] Hematology & Oncology [address] 217611 Alisson Carreon MD [address] [place] [address] [phone] 04/13/2024 13:30 EDT Appointment [facility] Hematology & Oncology [address] [address] 04/13/2024 14:00 EDT Appointment [facility] Hematology & Oncology [address] 086081 04/16/2024 10:00 EST Telemedicine [facility] - [facility] Palliative Care Services [address] [place] [address] 470031 Chichi Woods MD [address] [place] [address], [address] [phone] 04/24/2024 9:00 EST Appointment [facility] Radiology CT Outpatient - [address] 512731 04/24/2024 11:00 EST Appointment [facility] Breast Imaging - [facility] [address] [place], [place] 985541 04/27/2024 12:00 EST Appointment [facility] Hematology & Oncology - [address] [phone] 05/02/2024 15:00 EST Telemedicine [facility] Hematology & Oncology - [address] [phone] Alisson Carreon MD [address] [place] [address], Level 2 [place] [phone] 05/04/2024 10:15 EST Ancillary Procedure [facility] Cardiology - [address] [place], [place] [phone] 05/04/2024 11:30 EST Appointment [facility] Hematology & Oncology [address] [phone] 05/04/2024 12:00 EST Appointment [facility] Hematology & Oncology [address] [phone] 06/12/2024 13:00 EST Appointment [facility] Radiology CT - [address] [phone] Scheduled Referrals Name Type Priority Associated Diagnoses Orde r Schedule AMB CONS/FOLLOW UP INFUSION Outpatient Referral Routine Metastatic breast cancer ([facility]) Expected: 12/03/2020 (Approximate) documented as of this encounter Visit Diagnoses Diagnosis Metastatic breast cancer- Primary documented in this encounter Care Teams Twister Hand Relationship Specialty Start Date End Date Linda Blancas MD [facility] [address] [place] [address] PCP - General 01/06/11 Adolfo Carreno MD [address] [place] [address] [phone] General Surgery 04/26/19 Augustina Colin MD PhD [address] [place] [phone] Medical Oncology 04/26/19 documented as of this encounter
--- OUTSIDE RECORDS SUMMARY | 2024-03-20 14:55 | XMS_ITS | Encounter Summary ---
Author Organization [facility] Address [address] [place] [address] Care Team Providers Care Business Development Coordinator Name Role Phone Linda Blancas MD Primary Care Provider [phone] Adolfo Carreno MD Unavailable [phone] Augustina Colin MD PhD Unavailable Unavailable Reason for Visit * Reason Onset Date Comments Appointment Related 12/03/2020 Encounter Details Date Type Department Care Team (Late st Contact Info) Description 12/03/2020 Telephone [facility] [address] [place], [place] [phone] Augustina Colin, PhD Appointment Related Social History [...] * Telephone Encounter - Yola Hoskins - 12/03/2020 0930 EDT LM requesting a call back to schedule Zometa. documented in this encounter Plan of Treatment Upcoming Encounters Date Type Department Care Team (Late st Contact Info) Description 04/02/2024 10:30 EDT Appointment [facility] Interventional Radiology Unit [address] [place] [address] [phone] 04/02/2024 15:15 EDT Office Visit [facility] Surgical Oncology - [address] 286151 Adolfo Carreno MD 111 [facility], [facility] 2 [place] [phone] 04/05/2024 9:30 EDT Telemedicine [facility] - [facility] Palliative Care Services [address] [place], [place] 291841 Chichi Woods MD 111 [facility], [address] [phone] 04/11/2024 15:00 EDT Telemedicine [facility] Hematology & Oncology - [facility] [address] [place], [place] 394751 Alisson Carreon MD 111 [facility], Level [address] [place] [phone] 04/13/2024 13:30 EDT Appointment [facility] Hematology & Oncology - [address] [phone] 04/13/2024 14:00 EDT Appointment [facility] Hematology & Oncology - [address] [phone] 04/16/2024 10:00 EST Telemedicine [facility] - [facility] Palliative Care Services [address] [place] [address] [phone] Chichi Woods MD [address] [place] [address], [address] [phone] 04/24/2024 9:00 EST Appointment [facility] Radiology CT Outpatient - [address] 799231 04/24/2024 11:00 EST Appointment [facility] Breast Imaging - [facility] [address] 103181 04/27/2024 12:00 EST Appointment [facility] Hematology & Oncology - [address] 710591 05/02/2024 15:00 EST Telemedicine [facility] Hematology & Oncology - [address] [phone] Alisson Carreon MD [address] [place] [address], Level [address] [place] [phone] 05/04/2024 10:15 EST Ancillary Procedure [facility] Cardiology - [address] [place], [place] [phone] 05/04/2024 11:30 EST Appointment [facility] Hematology & Oncology - [address] [address] 05/04/2024 12:00 EST Appointment [facility] Hematology & Oncology [address] [address] 06/12/2024 13:00 EST Appointment [facility] Radiology CT - [address] [phone] documented as of this encounter Visit Diagnoses Not on filedocumented in this encounter Care Teams Business Development Coordinator Relationship Specialty Start Date End Date Linda Blancas MD [facility] [address] [place] [address] PCP - General 01/06/11 Adolfo Carreno MD [address] [place] [address] 2 [place] [phone] General Surgery 04/26/19 Augustina Colin MD PhD [address] [place] [address] 2 [place] [phone] Medical Oncology 04/26/19 documented as of this encounter
--- OUTSIDE RECORDS SUMMARY | 2024-03-20 14:55 | XMS_ITS | Encounter Summary ---
Author Organization [facility] Address [address] [place] [address] Care Team Providers Care Loom Setter Fourdrinier Name Role Phone Linda Blancas MD Primary Care Provider [phone] Adolfo Carreno MD Unavailable [phone] Augustina Colin MD PhD Unavailable Unavailable Reason for Visit * Reason Onset Date Comments Appointment Related 12/08/2020 Encounter Details Date Type Department Care Team (Late st Contact Info) Description 12/08/2020 Telephone [facility] Hematology & Oncology - [address] [place] [address] [place], [place] 468481 Augustina Colin, PhD Appointment Related Social History [...] * Telephone Encounter - Nilson Arciniega - 12/08/2020 1208 EDT lmom for pt cx 01/09 added labs for both appts left PAC# * Telephone Encounter - Sandhya Mcbride - 12/08/2020 1135 EDT Patient states that she thinks her December 25 and Jan 22 appointments are correct. She feels that the January 09 appointment is incorrect. Also, patient wants to make sure that she is scheduled for labs before these appointments. documented in this encounter Plan of Treatment Upcoming Encounters Date Type Department Care Team (Late st Contact Info) Description 04/02/2024 10:30 EDT Appointment [facility] Interventional Radiology Unit [address] [place], [place] 819011 04/02/2024 15:15 EDT Office Visit [facility] Surgical Oncology - [facility] [address] [place], [place] 575011 Adolfo Carreno MD 111 [facility], Level 2 [place] [phone] 04/05/2024 9:[address] [facility] - [facility] Palliative Care Services [address] [place], [place] 486131 Chichi Woods MD [address] [place] [address] [phone] 04/11/2024 15:00 EDT Telemedicine [facility] Hematology & Oncology - [address] 410861 Alisson Carreon MD [address] [place] [address], Level 2 [place] [phone] 04/13/2024 13:30 EDT Appointment [facility] Hematology & Oncology [address] 813411 04/13/2024 14:00 EDT Appointment [facility] Hematology & Oncology [address] [phone] 04/16/2024 10:[address] [facility] - [facility] Palliative Care Services [address] [place] [address] [phone] Chichi Woods MD [address] [place] [address] [phone] 04/24/2024 9:00 EST Appointment [facility] Radiology CT Outpatient - [address] 578281 04/24/2024 11:00 EST Appointment [facility] Breast Imaging - [address] 385951 04/27/2024 12:00 EST Appointment [facility] Hematology & Oncology - [address] 115571 05/02/2024 15:00 EST Telemedicine [facility] Hematology & Oncology - [address] 894661 Alisson Carreon MD [address] [place] [address] 2 [place] [phone] 05/04/2024 10:15 EST Ancillary Procedure [facility] Cardiology - [address] [place] [address] 05/04/2024 11:30 EST Appointment [facility] Hematology & Oncology [address] 330021 05/04/2024 12:00 EST Appointment [facility] Hematology & Oncology [address] [phone] 06/12/2024 13:00 EST Appointment [facility] Radiology CT - [address] 507721 documented as of this encounter Visit Diagnoses Not on filedocumented in this encounter Care Teams Loom Setter Fourdrinier Relationship Specialty Start Date End Date Linda Blancas MD [facility] [address] [place] [address] PCP - General 01/06/11 Adolfo Carreno MD [address] [place] [address] [phone] General Surgery 04/26/19 Augustina Colin MD PhD [address] [place] [phone] Medical Oncology 04/26/19 documented as of this encounter
--- OUTSIDE RECORDS SUMMARY | 2024-03-20 14:55 | XMS_ITS | Encounter Summary ---
Author Organization [facility] Address [address] [place] [address] Care Team Providers Care Beef Specialist Name Role Phone Linda Blancas MD Primary Care Provider [phone] Adolfo Carreno MD Unavailable [phone] Augustina Colin MD PhD Unavailable Unavailable Encounter Details Date Type Department Care Team (Late st Contact Info) Description 01/21/2021 Orders Only [facility] Center Hematology & Oncology - [facility] [address] [place] [address] Augustina Colin, PhD Social History Tobacco Use [...] [facility] Interventional Radiology Unit [address] [place] [address] [phone] 04/02/2024 15:15 EDT Office Visit [facility] Surgical Oncology - [address] 349191 Adolfo Carreno MD [address] [place] [address] 2 [place] [phone] 04/05/2024 9:30 EDT Telemedicine [facility] - [facility] Palliative Care Services [address] [place] [address] [phone] Chichi Woods MD [address] [place] [address], [address] [phone] 04/11/2024 15:00 EDT Telemedicine [facility] Hematology & Oncology [address] [phone] Alisson Carreon MD [address] [place] [address] 2 [place] [phone] 04/13/2024 13:30 EDT Appointment [facility] Hematology & Oncology [address] [address] 04/13/2024 14:00 EDT Appointment [facility] Hematology & Oncology - [address] [address] 04/16/2024 10:00 EST Telemedicine [facility] - [facility] Palliative Care Services [address] [place] [address] Chichi Woods MD [address] [place] [address], [address] [phone] 04/24/2024 9:00 EST Appointment [facility] Radiology CT Outpatient - [address] [phone] 04/24/2024 11:00 EST Appointment [facility] Breast Imaging - [facility] S [address] 867111 04/27/2024 12:00 EST Appointment [facility] Hematology & Oncology - [address] 605061 05/02/2024 15:00 EST Telemedicine [facility] Hematology & Oncology - [address] 609831 Alisson Carreon MD [address] [place] [address], [facility] 2 [place] [phone] 05/04/2024 10:15 EST Ancillary Procedure [facility] Cardiology - [place] [address] 05/04/2024 11:30 EST Appointment [facility] Hematology & Oncology - [address] [address] 05/04/2024 12:00 EST Appointment [facility] Hematology & Oncology - [address] 071271 06/12/2024 13:00 [facility] Rad[facility] - [address] [address] documented as of this encounter Visit Diagnoses Not on filedocumented in this encounter Care Teams Beef Specialist Relationship Specialty Start Date End Date Linda Blancas MD [facility] [address] [place] [address] PCP - General 01/06/11 Adolfo Carreno MD [address] [place] [address] [phone] General Surgery 04/26/19 Augustina Colin MD PhD [address] [place] [phone] Medical Oncology 04/26/19 documented as of this encounter
--- OUTSIDE RECORDS SUMMARY | 2024-03-20 14:55 | XMS_ITS | Encounter Summary ---
Author Organization [facility] Address [address] [place] [address] Care Team Providers Care Labor Economics Professor Name Role Phone Linda Blancas MD Primary Care Provider [phone] Adolfo Carreno MD Unavailable [phone] Augustina Colin MD PhD Unavailable Unavailable Encounter Details Date Type Department Care Team (Latest Contact Info) Description 10/30/2020 10:30 EDT - 10/30/2020 23:59 EDT Hospital Encounter [facility] Center Hematology & Oncology - Main [place] [address] [place], [place] [phone] Malignant neoplasm of right female breast, unspecified [...] have Coronavirus / COVID-19? No / Unsure 10/22/2020 10:59 EDT documented as of this encounter Functional [...] Tablets by mouth as needed. 12/07/2023 mv-mn/C/glutamin/lysin/ [id number] (AIRBORNE, ASCORBATE SODIUM, ORAL) Take by mouth [...] Progress Notes * Yuliana Vásquez RN - 10/30/2020 1030 EDT Sendy is here at the clinic today for treatment with faslodex. She had blood work done and sent to lab. I administered the 2 IM injections in gluteus muscle and she tolerated this well. She did not have any questions regarding her medication today. I was supervised by Dr. Colin who was present and immediately available at the clinic. Yuliana Vásquez RN 10/30/2020 1255 documented in this encounter Miscellaneous Notes * Addendum Note - John Ventura - 10/30/2020 1030 EDTEncounter addended by: John Ventura on: 11/12/2020 9:00 Actions taken: Charge Capture section accepted documented in this encounter Plan of Treatment Upcoming Encounters Date Type Department Care Team (Late st Contact Info) Description 04/02/2024 10:30 EDT Appointment [facility] Interventional Radiology Unit [address] [place] [address] [id number] 04/02/2024 15:15 EDT Office Visit [facility] Surgical Oncology - [address] 505251 Adolfo Carreno MD 111 [facility], Level 2 [place] [phone] 04/05/2024 9:30 EDT Telemedicine [facility] Palliative Care Services [address] [place] [address] [phone] Chichi Woods MD [address] [place] [address] [phone] 04/11/2024 15:00 EDT Telemedicine [facility] Hematology & Oncology - [address] 177661 Alisson Carreon MD [address] [place] [address], Level [address] [place] [phone] 04/13/2024 13:30 EDT Appointment [facility] Hematology & Oncology [address] 560001 04/13/2024 14:00 EDT Appointment [facility] Hematology & Oncology [address] 283521 04/16/2024 10:00 EST Telemedicine [facility] Palliative Care Services [address] [place] [address] 218121 Chichi Woods MD [address] [place] [address] [phone] 04/24/2024 9:00 EST Appointment [facility] Radiology CT Outpatient - [address] 068811 04/24/2024 11:00 EST Appointment [facility] Breast Imaging - [address] 121721 04/27/2024 12:00 EST Appointment [facility] Hematology & Oncology - [address] 017001 05/02/2024 15:00 EST Telemedicine [facility] Hematology & Oncology - [address] 982431 Alisson Carreon MD [address] [place] [address] [phone] 05/04/2024 10:15 EST Ancillary Procedure [facility] Cardiology - [address] [place], [place] [phone] 05/04/2024 11:30 EST Appointment [facility] Hematology & Oncology - [address] [phone] 05/04/2024 12:00 EST Appointment [facility] Hematology & Oncology [address] [phone] 06/12/2024 13:00 EST Appointment [facility] Radiology CT - [address] [phone] documented as of this encounter Visit Diagnoses Diagnosis Malignant neoplasm of right female breast, unspecified estrogen receptor status, unspecified site of breast (HCC-[facility])- Primary documented in this encounter Administered Medications Inactive Administered Medications - up to 3 most recent administrations Medication Order MAR Action Action Date Dose Rate Site fulvestrant (FASLODEX) injection 500 mg 500 mg, intramuscular, NOW X1, 1 dose, On Michelle 10/30/20 at 1300, Routine Given 10/30/2020 12:53 EDT 500 mg Left Gluteus Medius/Ventrogluteal documented in this encounter Orders Appointment Requests Count Last Ordered Date Fi rst Ordered Date ONCBCN INJECTION APPOINTMENT REQUEST 1 10/12 documented in this encounter Care Teams Labor Economics Professor Relationship Specialty Start Date End Date Linda Blancas MD [facility] [address] [place] [address] PCP - General 01/06/11 Adolfo Carreno MD [address] [place] [address] 2 [place] [phone] General Surgery 04/26/19 Augustina Colin MD PhD [address] [place] [address] 2 [place] [phone] Medical Oncology 04/26/19 documented as of this encounter
--- OUTSIDE RECORDS SUMMARY | 2024-03-20 14:55 | XMS_ITS | Encounter Summary ---
Author Organization [facility] Address [address] [place] [address] Care Team Providers Care Denture Packer Name Role Phone Linda Blancas MD Primary Care Provider [phone] Adolfo Carreno MD Unavailable [phone] Augustina Colin MD PhD Unavailable Unavailable Encounter Details Date Type Department Care Team (Latest Contact Info) Description 11/27/2020 10:00 EDT Phlebotomy Only [facility] Hematology & Oncology - Main [place] [address] [place] [address] Blood Doctor, [facility] Hem Onc Metastatic breast cancer (HCC-CMS) [...] as of this encounter Progress Notes * Perla Wynne MA - 11/27/2020 1000 EDT Venipuncture performed for Dittus Per orders of Dittus Number of attempts 1 LF AC I was supervised by Adepola who was present and immediately available in the office suite. PERLA WYNNE MA 11/27/2020 10:10 documented in this encounter Plan of Treatment Upcoming Encounters Date Type Department Care Team (Late st Contact Info) Description 04/02/2024 10:30 EDT Appointment [facility] Interventional Radiology Unit [address] [place] [address] [phone] 04/02/2024 15:15 EDT Office Visit [facility] Surgical Oncology - [address] [phone] Adolfo Carreno MD 111 [facility], Level 2 [place] [phone] 04/05/2024 9:30 EDT Telemedicine [facility] Palliative Care Services [address], [place] [phone] Chichi Woods MD 111 [facility], [address] [phone] 04/11/2024 15:00 EDT Telemedicine [facility] Hematology & Oncology - [address] [phone] Alisson Carreon MD [address] [place] [address] 2 [place] [phone] 04/13/2024 13:30 EDT Appointment [facility] Hematology & Oncology - [address] 106271 04/13/2024 14:00 EDT Appointment [facility] Hematology & Oncology [address] [phone] 04/16/2024 10:00 EST Telemedicine [facility] - [facility] Palliative Care Services [address] [place] [address] [phone] Chichi Woods MD [address] [place] [address] [phone] 04/24/2024 9:00 EST Appointment [facility] Radiology CT Outpatient - [address] 126131 04/24/2024 11:00 EST Appointment [facility] Breast Imaging - [address] 410191 04/27/2024 12:00 EST Appointment [facility] Hematology & Oncology - [address] 180381 05/02/2024 15:00 EST Telemedicine [facility] Hematology & Oncology - [address] 855711 Alisson Carreon MD [address] [place] [address], [facility] 2 [place] [phone] 05/04/2024 10:15 EST Ancillary Procedure [facility] Cardiology - [address] [place] [address] 05/04/2024 11:30 EST Appointment [facility] Hematology & Oncology - [address] [phone] 05/04/2024 12:00 EST Appointment [facility] Hematology & Oncology [address] [phone] 06/12/2024 13:00 EST Appointment [facility] Radiology CT - [address] [phone] documented as of this encounter Procedures Procedure Name Priority Date/Time Associated Diagnosis Comments COMPREHENSIVE METABOLIC PANEL (ONCOLOGY USE ONLY-INC MG) STAT 11/27/2020 10:07 EDT Metastatic breast cancer (HCC-CMS) documented in this encounter Results * COMPREHENSIVE METABOLIC PANEL (ONCOLOGY USE ONLY-INC MG) (11/27/2020 10:07 EDT) Sodium 144 136 - 145 mEq/L 11/27/2020 10:37 [facility] Potassium 4.2 3.5 - 5.0 mEq/L 11/27/2020 10:37 [facility] Chloride 102 96 - 110 mEq/L 11/27/2020 10:37 [facility] CO2 Total 30 22 - 32 mEq/L 11/27/2020 10:37 [facility] Glucose 98 70 - 100 mg/dL 11/27/2020 10:37 [facility] BUN 22 10 - 26 mg/dL 11/27/2020 10:37 [facility] Creatinine 0.74 0.52 - 1.04 mg/dL 11/27/2020 10:37 [facility] eGFR 89 >60 mL/min/1.7 3m2 11/27/2020 10:37 [facility] Comment:eGFR calculated gordo ureña CKD-EPI equation for non- Americans. Multiply eGFR by 1.16 for patients. Total Protein 7.2 6.3 - 8.2 g/dL 11/27/2020 10:37 EDT [facility] Albumin 4.4 3.4 - 4.9 g/dL 11/27/2020 10:37 [facility] Alkaline Phosphatase 71 38 - 126 U/L 11/27/2020 10:37 [facility] AST 32 15 - 46 U/L 11/27/2020 10:37 T [facility] ALT 22 <35 U/L 11/27/2020 10:37 [facility] Bilirubin, Total 0.6 <1.4 mg/dL 11/28/19 10:37 [facility] Calcium 10.1 8.5 - 10.5 mg/dL 11/27/2020 10:37 [facility] Calculated Calcium 9.8 8.5 - 10.5 mg/dL 11/27/2020 10:37 [facility] Magnesium 2.1 1.7 - 2.8 mg/dL 11/27/2020 10:37 [facility] Blood VENOUS BLOOD / Unknown Venipuncture / Unknown 11/27/2020 10:07 EDT 11/27/2020 10:11 EDT Augustina Colin MD PhD CHEMISTRY & BLOOD GA S ORDERABLES Performing Organization Address City/State/[facility] Co de Phone Number [facility] [address] [place] [address] documented in this encounter Visit Diagnoses Diagnosis Metastatic breast cancer- Primary documented in this encounter Care Teams Denture Packer Relationship Specialty Start Date End Date Linda Blancas MD [address] [place] [address] PCP - General 01/06/11 Adolfo Carreno MD 111 [facility], [facility], Level [address] [place] [phone] General Surgery 04/26/19 Augustina Colin MD PhD [address] [place] [address] 2 [place] [address] Medical Oncology 04/26/19 documented as of this encounter
--- OUTSIDE RECORDS SUMMARY | 2024-03-20 14:55 | XMS_ITS | Encounter Summary ---
Author Organization [facility] Address [address] [place] [address] Care Team Providers Care Extrusion Press Adjuster Name Role Phone Linda Blancas MD Primary Care Provider [phone] Adolfo Carreno MD Unavailable [phone] Augustina Colin MD PhD Unavailable Unavailable Encounter Details Date Type Department Care Team (Latest Contact Info) Description 01/22/2021 Travel Social History Tobacco Use Types Packs/Day [...] [facility] Interventional Radiology Unit [address] [place] [address] [phone] 04/02/2024 15:15 EDT Office Visit [facility] Surgical Oncology - [address] [phone] Adolfo Carreno MD [address] [place] [address] [phone] 04/05/2024 9:30 EDT Telemedicine [facility] - [facility] Palliative Care Services [address] [place] [address] [phone] Chichi Woods MD [address] [place] [address] [phone] 04/11/2024 15:00 EDT Telemedicine [facility] Hematology & Oncology [address] 580221 Alisson Carreon MD [address] [place] [address] [phone] 04/13/2024 13:30 EDT Appointment [facility] Hematology & Oncology [address] 145951 04/13/2024 14:00 EDT Appointment [facility] Hematology & Oncology [address] [phone] 04/16/2024 10:00 EST Telemedicine [facility] - [facility] Palliative Care Services [address] [place] [address] [phone] Chichi Woods MD [address] [place] [address], [address] [phone] 04/24/2024 9:00 EST Appointment [facility] Radiology CT Outpatient - [address] [id number] 04/24/2024 11:00 EST Appointment [facility] Breast Imaging - [facility] [place] 1 [place], [place] 184621 04/27/2024 12:00 EST Appointment [facility] Hematology & Oncology - [address] 538151 05/02/2024 15:00 EST Telemedicine [facility] Hematology & Oncology - [address] 637301 Alisson Carreon MD [address] [place] [address], Level [address] [place] [phone] 05/04/2024 10:15 EST Ancillary Procedure [facility] Cardiology - [place] [address] 05/04/2024 11:30 EST Appointment [facility] Hematology & Oncology - [address] [phone] 05/04/2024 12:00 EST Appointment [facility] Hematology & Oncology [address] [phone] 06/12/2024 13:00 EST Appointment [facility] Radiology CT - [address] [phone] documented as of this encounter Visit Diagnoses Not on filedocumented in this encounter Care Teams Extrusion Press Adjuster Relationship Specialty Start Date End Date Linda Blancas MD [facility] [address] [place] [address] PCP - General 01/06/11 Adolfo Carreno MD [address] [place] [address], [facility] 2 [place] [phone] General Surgery 04/26/19 Augustina Colin MD PhD [address] [place] [address], [facility] 2 [place] [address] Medical Oncology 04/26/19 documented as of this encounter
--- OUTSIDE RECORDS SUMMARY | 2024-03-20 14:55 | XMS_ITS | Encounter Summary ---
Author Organization [facility] Address [address] [place] [address] Care Team Providers Care Country Director Name Role Phone Linda Blancas MD Primary Care Provider [phone] Adolfo Carreno MD Unavailable [phone] Augustina Colin MD PhD Unavailable Unavailable Encounter Details Date Type Department Care Team (Latest Contact Info) Description 11/20/2020 Travel Social History Tobacco Use Types Packs/Day [...] EDT Appointment [facility] Interventional Radiology Unit [address] [place] [address] [phone] 04/02/2024 15:15 EDT Office Visit [facility] Surgical Oncology - [address] [phone] Adolfo Carreno MD [address] [place] [address] [phone] 04/05/2024 9:30 EDT Telemedicine [facility] - [facility] Palliative Care Services [address] [place] [address] [phone] Chichi Woods MD [address] [place] [address] [phone] 04/11/2024 15:00 EDT Telemedicine [facility] Hematology & Oncology [address] [phone] Alisson Carreon MD [address] [place] [address] [phone] 04/13/2024 13:30 EDT Appointment [facility] Hematology & Oncology [address] [phone] 04/13/2024 14:00 EDT Appointment [facility] Hematology & Oncology [address] 199731 04/16/2024 10:00 EST Telemedicine [facility] - [facility] Palliative Care Services [address] [place] [address] 853111 Chichi Woods MD [address] [place] [address], [address] [phone] 04/24/2024 9:00 EST Appointment [facility] Radiology CT Outpatient - [address] [phone] 04/24/2024 11:00 EST Appointment [facility] Breast [facility] - [facility] [place] 1 [place], [place] 764271 04/27/2024 12:00 EST Appointment [facility] Hematology & Oncology - [address] 385361 05/02/2024 15:00 EST Telemedicine [facility] Hematology & Oncology - [address] [phone] Alisson Carreon MD [address] [place] [address], Level [address] [place] [phone] 05/04/2024 10:15 EST Ancillary Procedure [facility] Cardiology - [place] [address] 05/04/2024 11:30 EST Appointment [facility] Hematology & Oncology - [address] 161551 05/04/2024 12:00 EST Appointment [facility] Hematology & Oncology [address] [phone] 06/12/2024 13:00 EST Appointment [facility] Radiology CT - [address] [phone] documented as of this encounter Visit Diagnoses Not on filedocumented in this encounter Care Teams Country Director Relationship Specialty Start Date End Date Linda Blancas MD [facility] [address] [place] [address] PCP - General 01/06/11 Adolfo Carreno MD [address] [place] [address], [place] [address] [place] [phone] General Surgery 04/26/19 Augustina Colin MD PhD [address] [place] [address], [place] 2 [place] [address] Medical Oncology 04/26/19 documented as of this encounter
--- OUTSIDE RECORDS SUMMARY | 2024-03-20 14:55 | XMS_ITS | Encounter Summary ---
Author Organization [facility] Address [address] [place] [address] Care Team Providers Care Right Of Way Man Name Role Phone Linda Blancas MD Primary Care Provider [phone] Adolfo Carreno MD Unavailable [phone] Augustina Colin MD PhD Unavailable Unavailable Encounter Details Date Type Department Care Team (Late st Contact Info) Description 01/26/2021 Orders Only [facility] Hematology & Oncology - [facility] [address] [place] [address] Augustina Colin, PhD Malignant neoplasm of right [...] Contact Info) Description 04/02/2024 10:30 EDT Appointment [facility] Interventional Radiology Unit [address] [place] [address] 115391 04/02/2024 15:15 EDT Office Visit [facility] Surgical Oncology - [address] [phone] Adolfo Carreno MD 111 [facility], [facility] 2 [place] [phone] 04/05/2024 9:30 EDT Telemedicine [facility] - [facility] Palliative Care Services [address] [place], [place] [phone] Chichi Woods MD [address] [place] [address], [address] [phone] 04/11/2024 15:00 EDT Telemedicine [facility] Hematology & Oncology - [address] [phone] Alisson Carreon MD [address] [place] [address], [facility] 2 [place] [phone] 04/13/2024 13:30 EDT Appointment [facility] Hematology & Oncology - [address] 315551 04/13/2024 14:00 EDT Appointment [facility] Hematology & Oncology [address] [address] 04/16/2024 10:00 EST Telemedicine [facility] - [facility] Palliative Care Services [address] [place] [address] 633141 Chichi Woods MD [address] [place] [address], [address] [phone] 04/24/2024 9:00 EST Appointment [facility] Radiology CT Outpatient - [address] [id number] 04/24/2024 11:00 EST Appointment [facility] Breast Imaging - [facility] S [place] 1 [place], [place] 242131 04/27/2024 12:00 EST Appointment [facility] Hematology & Oncology [address] 720251 05/02/2024 15:00 EST Telemedicine [facility] Hematology & Oncology [address] 683981 Alisson Carreon MD [address] [place] [address], Level [address] [place] [phone] 05/04/2024 10:15 EST Ancillary Procedure [facility] Cardiology - [place] [address] 05/04/2024 11:30 EST Appointment [facility] Hematology & Oncology [address] [phone] 05/04/2024 12:00 EST Appointment [facility] Hematology & Oncology [address] [phone] 06/12/2024 13:00 EST Appointment [facility] Center Radiology CT - [address] [address] documented as of this encounter Visit Diagnoses Diagnosis Malignant neoplasm of right female breast, unspecified estrogen receptor status, unspecified site of breast (HCC-[facility])- Primary documented in this encounter Orders Appointment Requests Count Last Ordered Date Fi rst Ordered Date ONCBCN CLINIC APPOINTMENT REQUEST 2 021 02/20/2021 ONCBCN INJECTION APPOINTMENT REQUEST 2 12/202002/20/2021 documented in this encounter Care Teams Right Of Way Man Relationship Specialty Start Date End Date Linda Blancas MD [facility] [address] [place] [address] PCP - General 01/06/11 Adolfo Carreno MD [address] [place] [phone] General Surgery 04/26/19 Augustina Colin MD PhD [address] [place] [phone] Medical Oncology 04/26/19 documented as of this encounter
--- OUTSIDE RECORDS SUMMARY | 2024-03-20 14:55 | XMS_ITS | Encounter Summary ---
Author Organization [facility] Address [address] [place] [address] Care Team Providers Care Exhibit Artist Name Role Phone Linda Blancas MD Primary Care Provider [phone] Adolfo Carreno MD Unavailable [phone] Augustina Colin MD PhD Unavailable Unavailable Encounter Details Date Type Department Care Team (Late st Contact Info) Description 11/27/2020 Orders Only [facility] Radiology - Main [address] [phone] Richard Antonio MD [address] [place] [address] Level 1 [place] [address] Social History Tobacco Use Types [...] EDT Appointment [facility] Interventional Radiology Unit [address] [place] [address] 04/02/2024 15:15 EDT Office Visit [facility] Surgical Oncology - [address] 378101 Adolfo Carreno MD [address] [place] [address] [phone] 04/05/2024 9:30 EDT Telemedicine [facility] - [facility] Palliative Care Services [address] [place] [address] 430471 Chichi Woods MD [address] [place] [address], [address] [phone] 04/11/2024 15:00 EDT Telemedicine [facility] Hematology & Oncology - [address] 413121 Alisson Carreon MD [address] [place] [address] 2 [place] [phone] 04/13/2024 13:30 EDT Appointment [facility] Hematology & Oncology - [address] 166351 04/13/2024 14:00 EDT Appointment [facility] Hematology & Oncology - [address] [address] 04/16/2024 10:00 EST Telemedicine [facility] - [facility] Palliative Care Services [address] [place] [address] [phone] Chichi Woods MD [address] [place] [address] [phone] 04/24/2024 9:00 EST Appointment [facility] Radiology CT Outpatient - [address] [address] 04/24/2024 11:00 EST Appointment [facility] Breast Imaging - [facility] S [address] 416881 04/27/2024 12:00 EST Appointment [facility] Hematology & Oncology - [address] 298241 05/02/2024 15:00 EST Telemedicine [facility] Hematology & Oncology - [address] [address] Alisson Carreon MD [address] [place] [address], Level [address] [place] [phone] 05/04/2024 10:15 EST Ancillary Procedure [facility] Cardiology - [place] [address] 05/04/2024 11:30 EST Appointment [facility] Hematology & Oncology - [address] [phone] 05/04/2024 12:00 EST Appointment [facility] Center Hematology & Oncology - [address] [phone] 06/12/2024 13:00 EST Appointment [facility] Radiology CT - [address] 461981 documented as of this encounter Visit Diagnoses Not on filedocumented in this encounter Care Teams Exhibit Artist Relationship Specialty Start Date End Date Linda Blancas MD [facility] [address] [place] [address] PCP - General 01/06/11 Adolfo Carreno MD [address] [place] [address] 2 [place] [phone] General Surgery 04/26/19 Augustina Colin MD PhD [address] [place] [address] 2 [place] [address] Medical Oncology 04/26/19 documented as of this encounter
--- OUTSIDE RECORDS SUMMARY | 2024-03-20 14:55 | XMS_ITS | Encounter Summary ---
Author Organization [facility] Address [address] [place] [address] Care Team Providers Care Laborer Mine Name Role Phone Linda Blancas MD Primary Care Provider [phone] Adolfo Carreno MD Unavailable [phone] Augustina Colin MD PhD Unavailable Unavailable Reason for Referral * Radiology Services (Routine) - Closed Specialty Diagnoses / Procedures Referred By Contac t Referred To Contact Diagnoses Malignant neoplasm of right female breast, unspecified estrogen receptor status, unspecified site of breast ([facility]) Procedures CT CHEST W CONTRAST Augustina Colin MD PhD Referral ID Status Reason Start Date Expiration Date Visits Re quested Visits Authorized [id number] Closed 09/18/2020 03/17/2021 1 1 Reason for Visit * Radiology Services (Routine) - Closed Specialty Diagnoses / Procedures Referred By Contac t Referred To Contact Diagnoses Malignant neoplasm of right female breast, unspecified estrogen receptor status, unspecified site of breast ([facility]) Procedures CT CHEST W CONTRAST Augustina Colin MD PhD Referral ID Status Reason Start Date Expiration Date Visits Re quested Visits Authorized [id number] Closed 09/18/2020 03/17/2021 1 1 Encounter Details Date Type Department Care Team (Latest Contact Info) Description 11/24/2020 10:04 EDT - 11/24/2020 10:59 EDT [facility] Radiology CT - Main [place] [address] [place] [address] Malignant neoplasm of right female breast, unspecified estrogen receptor status, unspecified site of breast ([facility]) Discharge Disposition: Home or Self [...] Tablets by mouth as needed. 12/07/2023 mv-mn/C/glutamin/lysin/ [id number] (A[place], ASCORBATE SODIUM, ORAL) Take by mouth [...] [facility] [address] [place] [address] [phone] 04/02/2024 15:15 EDT Office Visit [facility] Surgical Oncology - [facility] [address], [place] 208[address] Adolfo Carreno MD [address] [place] [address], Level [address] [place] [phone] 04/05/2024 9:30 EDT Telemedicine [facility] - [facility] Palliative Care Services [address], [place] [address] Chichi Woods MD [address] [place] [address] [address] [place] [phone] 04/11/2024 15:00 EDT Telemedicine [facility] Hematology & Oncology - [address] [phone] Alisson Carreon MD [address] [place] [address] 2 [place] [phone] 04/13/2024 13:30 EDT Appointment [facility] Hematology & Oncology - [address] [phone] 04/13/2024 14:00 EDT Appointment [facility] Hematology & Oncology - [address] [phone] 04/16/2024 10:00 EST Telemedicine [facility] - [facility] Palliative Care Services [address] [place] [address] [phone] Chichi Woods MD [address] [place] [phone] 04/24/2024 9:00 EST Appointment [facility] Radiology CT Outpatient - [address] [id number] 04/24/2024 11:00 EST Appointment [facility] Breast Imaging - [address] [phone] 04/27/2024 12:00 EST Appointment [facility] Hematology & Oncology - [address] [id number] 05/02/2024 15:00 EST Telemedicine [facility] Hematology & Oncology - [address] [phone] Alisson Carreon MD [address] [place] [address] 2 [place] [phone] 05/04/2024 10:15 EST Ancillary Procedure [facility] Cardiology - [place] [address] [place] [address] 05/04/2024 11:30 EST Appointment [facility] Hematology & Oncology - [address] [phone] 05/04/2024 12:00 EST Appointment [facility] Hematology & Oncology - [address] [id number] 06/12/2024 13:00 EST Appointment [facility] Radiology CT - [address] [id number] documented as of this encounter Procedures Procedure Name Priority Date/Time Associated Diagnosis Comments CT CHEST W CONTRAST Routine 11/24/2020 1 0:47 EDT Malignant neoplasm of right female breast, unspecified estrogen receptor status, unspecified site of breast ([facility]) documented in this encounter Results * CT CHEST W CONTRAST (11/24/2020 10:47 EDT) Anatomical Region Laterality Modality Chest Computed Tomogra phy 11/24/2020 11:2 4 EDT Impressions 11/24/2020 11:24 EDT 1. ??2 new small low-attenuation lesions within the liver as described. Repeat liver MR is recommended for further evaluation. 2. ??Improving pneumonitis within the lungs. 3. ??Stable small bilateral pulmonary nodules. 4. ??Stable nonenlarged right upper internal thoracic/internal mammary lymph node. 5. ??Status post right mastectomy and bilateral breast implantation. 6. ??Nonenlarged left supraclavicular lymph nodes unchanged. Narrative 11/24/2020 11:[address] CHEST W CONTRAST ??11/24/2020 2:30 PM Clinical History/Comments: Complex Patient Condition - See Comments Technique: A single breath-hold helical CT acquisition was performed through the chest on a multidetector-row scanner with a reconstructed slice thickness of 3 mm and retrospectively reconstructed 0.9 mm thick sections with 0.45 mm overlapping intervals. ??The scans were obtained from the lung apices through the bases during the intravenous administration of 70-100 cc of 370 mg% nonionic contrast injected at a rate of 2 cc/second. Scans were reviewed on a dedicated PACS workstation for analysis. Comparison: Chest CT with contrast August 11, 2020. Findings: CT of the chest performed after IV contrast administration. Lower neck: The left lower cervical/supraclavicular lymph nodes noted previously remain normal in size and unchanged from the prior study. Chest wall soft tissues: Patient has undergone prior right mastectomy with bilateral breast implants. There is a nonenlarged left subpectoral lymph node seen on series 401 image 43 that is unchanged from the prior examination of August 11, 2020. Mediastinum and mariann: There is a single 5 mm right upper internal thoracic/internal mammary lymph node that was present on the comparison studies and is unchanged. This node has not changed in size from the studies of November 07, 2018. ??The esophagus appears normal. Heart and mediastinal vasculature: ??No abnormalities. Large airways: ??No abnormalities. Lungs: ??The areas of patchy groundglass opacity seen on the prior study have significantly improved likely reflecting a resolving pneumonitis, most likely drug related. There are some small nodules including a cluster of small nodules within the left lung apex anterolaterally that remain unchanged from the prior examination of August 11, 2020. Pleura: No abnormalities. Upper abdomen (limited to upper abdomen, not optimized for abdominal imaging): There are 2 small low-attenuation lesions visible within the liver, one on series 401 image 159 likely within the medial segment left lobe, and a 2nd in the anterior segment right lobe of liver on series 401 image 165. These were not evident on the prior examination. Bones: ??There is severe degenerative disc disease seen at the L1-L2 disc space unchanged from prior chest and abdominal exams. There is degenerative disc disease within the lower cervical and upper thoracic spine. Procedure Note Evan Garcia MD - 11/24/2020 CT CHEST W CONTRAST 11/24/2020 2:30 PM Clinical History/Comments: Complex Patient Condition - See Comments Technique: A single breath-hold helical CT acquisition was performed through thechest on a multidetector-row scanner with a reconstructed slice thicknessof 3 mm and retrospectively reconstructed 0.9 mm thick sections with 0.45mm overlapping intervals. The scans were obtained from the lung apicesthrough the bases during the intravenous administration of 70-100 cc of370 mg% nonionic contrast injected at a rate of 2 cc/second. Scans werereviewed on a dedicated PACS workstation for analysis. Comparison: Chest CT with contrast August 11, 2020. Findings: CT of the chest performed after IV contrast administration. Lower neck: The left lower cervical/supraclavicular lymph nodes notedpreviously remain normal in size and unchanged from the prior study. Chest wall soft tissues: Patient has undergone prior right mastectomy withbilateral breast implants. There is a nonenlarged left subpectoral lymphnode seen on series 401 image 43 that is unchanged from the priorexamination of August 11, 2020. Mediastinum and mariann: There is a single 5 mm right upper internalthoracic/internal mammary lymph node that was present on the comparisonstudies and is unchanged. This node has not changed in size from thestudies of November 07, 2018. The esophagus appears normal. Heart and mediastinal vasculature: No abnormalities. Large airways: No abnormalities. Lungs: The areas of patchy groundglass opacity seen on the prior studyhave significantly improved likely reflecting a resolving pneumonitis,most likely drug related. There are some small nodules including a clusterof small nodules within the left lung apex anterolaterally that remainunchanged from the prior examination of August 11, 2020. Pleura: No abnormalities. Upper abdomen (limited to upper abdomen, not optimized for abdominalimaging): There are 2 small low-attenuation lesions visible within theliver, one on series 401 image 159 likely within the medial segment leftlobe, and a 2nd in the anterior segment right lobe of liver on series 401image 165. These were not evident on the prior examination. Bones: There is severe degenerative disc disease seen at the L1-L2 discspace unchanged from prior chest and abdominal exams. There isdegenerative disc disease within the lower cervical and upper thoracicspine. IMPRESSION 1. 2 new small low-attenuation lesions within the liver as described.Repeat liver MR is recommended for further evaluation. 2. Improving pneumonitis within the lungs. 3. Stable small bilateral pulmonary nodules. 4. Stable nonenlarged right upper internal thoracic/internal mammarylymph node. 5. Status post right mastectomy and bilateral breast implantation. 6. Nonenlarged left supraclavicular lymph nodes unchanged. Augustina Colin MD PhD IMG CT ORDERABLES documented in this encounter Visit Diagnoses Diagnosis Malignant neoplasm of right female breast, unspecified estrogen receptor status, unspecified site of breast ([facility]) documented in this encounter Administered Medications Inactive Administered Medications - up to 3 most recent administrations Medication Order MAR Action Action Date Dose Rate Site iohexoL (OMNIPAQUE 350) solution 100 mL 100 mL, intravenous, Once in imaging, 1 dose, Starting on Tue11/24/20 at 1040, Until Tue11/24/20 at 1047, Routine, Imaging Protocol Orders Given 11/24/2020 10:47 EDT 50 mL documented in this encounter Care Teams Laborer Mine Relationship Specialty Start Date End Date Linda Blancas MD [facility] [address] [place] [phone] PCP - General 01/06/11 Adolfo Carreno MD [address] [place] [phone] General Surgery 04/26/19 Augustina Colin MD PhD [address] [place] [address] 2 [place] [address] Medical Oncology 04/26/19 documented as of this encounter
--- OUTSIDE RECORDS SUMMARY | 2024-03-20 14:55 | XMS_ITS | Encounter Summary ---
Author Organization [facility] Address [address] [place] [address] Care Team Providers Care Installation Superintendent Name Role Phone Linda Blancas MD Primary Care Provider [phone] Adolfo Carreno MD Unavailable [phone] Augustina Colin MD PhD Unavailable Unavailable Encounter Details Date Type Department Care Team (Latest Contact Info) Description 12/25/2020 8:00 EDT Phlebotomy Only [facility] Hematology & Oncology - Main [place] [address] [place] [address] Blood Doctor, [facility] Hem Onc Metastatic breast cancer (HCC-CMS) (Primary [...] Progress Notes * Patricia Rodriguez MA - 12/25/2020 0800 EDT Venipuncture performed for Dittus Per orders of Dittus Number of attempts 1 right ac PC I was supervised by Ades who was present and immediately available in the office suite. PATRICIA RODRIGUEZ MA 12/25/2020 8:22 documented in this encounter Plan of Treatment Upcoming Encounters Date Type Department Care Team (Late st Contact Info) Description 04/02/2024 10:30 EDT Appointment [facility] Interventional Radiology Unit [address] [place] [address] [phone] 04/02/2024 15:15 EDT Office Visit [facility] Surgical Oncology - [address] [phone] Adolfo Carreno MD [address] [place] [address], [facility] [address] [place] [phone] 04/05/2024 9:30 EDT Telemedicine [facility] - [facility] Palliative Care Services [address] [place], [place] [address] Chichi Woods MD [address] [place] [address], [place] [address] [place] [phone] 04/11/2024 15:00 EDT Telemedicine [facility] Hematology & Oncology - [address] [phone] Alisson Carreon MD [address] [place] [address], [address] [place] [phone] 04/13/2024 13:30 EDT Appointment [facility] Hematology & Oncology [address] [phone] 04/13/2024 14:00 EDT Appointment [facility] Hematology & Oncology - [address] [phone] 04/16/2024 10:00 EST Telemedicine [facility] - [facility] Palliative Care Services [address] [place] [address] [phone] Chichi Woods MD [address] [place] [address], [place] [address] [place] [phone] 04/24/2024 9:00 EST Appointment [facility] Radiology CT Outpatient - [address] [id number] 04/24/2024 11:00 EST Appointment [facility] Breast Imaging - [facility] [address] [phone] 04/27/2024 12:00 EST Appointment [facility] Hematology & Oncology - [address] [phone] 05/02/2024 15:00 EST Telemedicine [facility] Hematology & Oncology - [address] 270331 Alisson Carreon MD [address] [place] [address], [address] [place] [phone] 05/04/2024 10:15 EST Ancillary Procedure [facility] Cardiology - [address] [place], [place] [phone] 05/04/2024 11:30 EST Appointment [facility] Hematology & Oncology - [address] [address] 05/04/2024 12:00 EST Appointment [facility] Hematology & Oncology - [address] [address] 06/12/2024 13:00 EST Appointment [facility] Radiology CT - [address] [address] documented as of this encounter Procedures Procedure Name Priority Date/Time Associated Diagnosis Comments COMPREHENSIVE METABOLIC PANEL (ONCOLOGY USE ONLY-INC MG) STAT 12/25/2020 8:21 EDT Metastatic breast cancer (HCC-CMS) COMPLETE BLOOD COUNT AND DIFFERENTIAL STAT 12/25/2020 8:21 EDT Metastatic breast cancer (HCC-CMS) documented in this encounter Results * COMPLETE BLOOD COUNT AND DIFFERENTIAL (12/25/2020 8:21 EDT) WBC 5.58 4.00 - 12.40 K/cmm 12/25/2020 8:40 [facility] RBC 4.14 3.86 - 5.04 M/cmm 12/25/2020 8:40 [facility] Hemoglobin 13.4 11.6 - 15.2 gm/dL 12/25/2020 8:40 [facility] HCT 39.8 34.9 - 44.4 % 12/25/2020 8:40 [facility] MCV 96 81 - 98 fl 12/25/2020 8:40 [facility] MCH 32.4 26.7 - 33.3 pg 12/25/2020 8:40 [facility] MCHC 33.7 32.1 - 35.9 gm/dL 12/25/2020 8:40 [facility] RDW-CV 13.2 <14.7 % 12/25/2020 8:40 [facility] RDW-SD 46.9 <50.4 fl 12/25/2020 8:40 [facility] PLT 248 141 - 377 K/cmm 12/25/2020 8:40 [facility] MPV 9.9 9.5 - 12.7 fl 12/25/2020 8:40 [facility] % Neutrophils 46.9 % 12/25/2020 8:40 [facility] % Lymphocytes 35.5 % 12/25/2020 8:40 [facility] % Monocytes 12.9 % 12/25/2020 8:40 [facility] % Eosinophils 3.8 % 12/25/2020 8:40 [facility] % Basophils 0.5 % 12/25/2020 8:40 [facility] % Immature Grans 0.4 % 12/26/19 8:40 [facility] Absolute Neutrophils 2.62 2.20 - 8.85 K/cmm 12/25/2020 8:40 [facility] Absolute Lymphocytes 1.98 1.09 - 3.30 K/cmm 12/25/2020 8:40 [facility] Absolute Monocytes 0.72 0.10 - 0.80 K/cmm 12/25/2020 8:40 [facility] Absolute Eosinophils 0.21 0.03 - 0.61 K/cmm 12/25/2020 8:40 [facility] ABS Basophils 0.03 0.01 - 0.11 K/cmm 12/25/2020 8:40 [facility] Absolute Immature Grans 0.02 0.00 - 0.06 K/cmm 12/25/2020 8:40 [facility] Type of Differential: Auto 12/25/2020 8:40 [facility] Blood VENOUS BLOOD / Unknown Venipuncture / Unknown 12/25/2020 8:21 EDT 12/25/2020 8:24 EDT Augustina Colin MD PhD PACKAGES & DNA PROBE ORDERABLES [facility] [address] [place] [address] * (ABNORMAL) COMPREHENSIVE METABOLIC PANEL (ONCOLOGY USE ONLY-INC MG) (12/25/2020 8:21 EDT) Sodium 142 136 - 145 mEq/L 12/25/2020 8:51 [facility] Potassium 4.5 3.5 - 5.0 mEq/L 12/25/2020 8:51 [facility] Chloride 103 96 - 110 mEq/L 12/25/2020 8:51 [facility] CO2 Total 29 22 - 32 mEq/L 12/25/2020 8:51 [facility] Glucose 61(L) 70 - 100 mg/dL 12/25/2020 8:51 [facility] BUN 24 10 - 26 mg/dL 12/25/2020 8:51 [facility] Creatinine 0.68 0.52 - 1.04 mg/dL 12/25/2020 8:51 [facility] eGFR 96 >60 mL/min/1.7 3m2 12/25/2020 8:51 [facility] Comment:eGFR calculated gordo ureña CKD-EPI equation for non- Americans. Multiply eGFR by 1.16 for patients. Total Protein 6.8 6.3 - 8.2 g/dL 12/25/2020 8:51 [facility] Albumin 4.1 3.4 - 4.9 g/dL 12/25/2020 8:51 [facility] Alkaline Phosphatase 63 38 - 126 U/L 12/25/2020 8:51 [facility] AST 35 15 - 46 U/L 12/25/2020 8:51 [facility] ALT 25 <35 U/L 12/25/2020 8:51 [facility] Bilirubin, Total 0.5 <1.4 mg/dL 12/26/19 8:51 [facility] Calcium 9.6 8.5 - 10.5 mg/dL 12/25/2020 8:51 [facility] Calculated Calcium 9.5 8.5 - 10.5 mg/dL 12/25/2020 8:51 EDT [facility] Magnesium 2.1 1.7 - 2.8 mg/dL 12/25/2020 8:51 EDT [facility] Blood VENOUS BLOOD / Unknown Venipuncture / Unknown 12/25/2020 8:21 EDT 12/25/2020 8:23 EDT Augustina Colin MD PhD CHEMISTRY & BLOOD GA S ORDERABLES [facility] [address] [place] [address] documented in this encounter Visit Diagnoses Diagnosis Metastatic breast cancer- Primary documented in this encounter Care Teams Installation Superintendent Relationship Specialty Start Date End Date Linda Blancas MD [facility] [address] [place] [address] PCP - General 01/06/11 Adolfo Carreno MD [address] [place] [address] [address] [place] [phone] General Surgery 04/26/19 Augustina Colin MD PhD [address] [place] [address] 2 [place] [phone] Medical Oncology 04/26/19 documented as of this encounter
--- OUTSIDE RECORDS SUMMARY | 2024-03-20 14:55 | XMS_ITS | Encounter Summary ---
Author Organization [facility] Address [address] [place] [address] Care Team Providers Care Er Registrar Name Role Phone Linda Blancas MD Primary Care Provider [phone] Adolfo Carreno MD Unavailable [phone] Augustina Colin MD PhD Unavailable Unavailable Reason for Referral * Radiology Services (Routine) - Closed Specialty Diagnoses / Procedures Referred By Contac t Referred To Contact Radiology Diagnoses Malignant neoplasm of right female breast, unspecified estrogen receptor status, unspecified site of breast ([facility]) Procedures MR ABDOMEN W WO CONTRAST Augustina Colin MD PhD Referral ID Status Reason Start Date Expiration Date Visits Re quested Visits Authorized [id number] Closed 11/05/2020 05/04/2021 1 1 Reason for Visit * Radiology Services (Routine) - Closed Specialty Diagnoses / Procedures Referred By Contac t Referred To Contact Radiology Diagnoses Malignant neoplasm of right female breast, unspecified estrogen receptor status, unspecified site of breast (HCC-CMS) Procedures MR ABDOMEN W WO CONTRAST Augustina Colin MD PhD Referral ID Status Reason Start Date Expiration Date Visits Re quested Visits Authorized [id number] Closed 11/05/2020 05/04/2021 1 1 Encounter Details Date Type Department Care Team (Latest Contact Info) Description 11/24/2020 11:00 EDT - 11/24/2020 23:59 EDT [address] Encounter [address] [facility] [address] [place], [place] [id number] Malignant neoplasm of right female breast, unspecified estrogen receptor status, unspecified site of breast ([facility]) Discharge Disposition: Home or Self Care [...] Tablets by mouth as needed. 12/07/2023 mv-mn/C/glutamin/lysin/ [id number] (AIRBORNE, ASCORBATE SODIUM, ORAL) Take by mouth [...] EDT Appointment [facility] Interventional Radiology Unit [address] [place] [address] [phone] 04/02/2024 15:15 EDT Office Visit [facility] Surgical Oncology - [facility] [address] [place], [place] [phone] Adolfo Carreno MD [address] [place] [address], Level 2 [place] [phone] 04/05/2024 9:30 EDT Telemedicine [facility] - [facility] Palliative Care Services [address] [place] [address] [phone] Chichi Woods MD [address] [place] [address] [address] [place] [phone] 04/11/2024 15:00 EDT Telemedicine [facility] Hematology & Oncology - [address] [phone] Alisson Carreon MD [address] [place] [address] 2 [place] [phone] 04/13/2024 13:30 EDT Appointment [facility] Hematology & Oncology - [address] [phone] 04/13/2024 14:00 EDT Appointment [facility] Hematology & Oncology - [address] [phone] 04/16/2024 10:00 EST Telemedicine [facility] - [facility] Palliative Care Services [address] [place] [address] 191481 Chichi Woods MD [address] [place] [address] [address] [place] [phone] 04/24/2024 9:[address] [facility] Radiology CT Outpatient - [address] [id number] 04/24/2024 11:00 EST Appointment [facility] Breast Imaging - [address] 979781 04/27/2024 12:00 EST Appointment [facility] Hematology & Oncology - [address] [phone] 05/02/2024 15:00 EST Telemedicine [facility] Hematology & Oncology - [address] [phone] Alisson Carreon MD [address] [place] [address] 2 [place] [phone] 05/04/2024 10:15 EST Ancillary Procedure [facility] Cardiology - [address] [place] [address] 05/04/2024 11:30 EST Appointment [facility] Hematology & Oncology - [address] [id number] 05/04/2024 12:00 EST Appointment [facility] Hematology & Oncology [address] 044631 06/12/2024 13:[address] [facility] Radiology CT - [address] 146691 documented as of this encounter Procedures Procedure Name Priority Date/Time Associated Diagnosis Comments MR ABDOMEN W WO CONTRAST Routine 11/24/2020 12:00 EDT Malignant neoplasm of right female breast, unspecified estrogen receptor status, unspecified site of breast (HCC-CMS) documented in this encounter Results * MR ABDOMEN W WO CONTRAST (11/24/2020 12:00 EDT) Anatomical Region Laterality Modality Body, Abdomen Magnetic Resonan ce 11/24/2020 14:1 1 EDT Impressions 11/24/2020 14:11 EDT 1. New subcentimeter diffusion restricting hypoenhancing liver lesions consistent with recurrent metastatic disease Narrative 11/24/2020 14:11 EDT MR ABDOMEN W WO CONTRAST ??11/24/2020 11:00 AM Signs and Symptoms/Comments: ?? Complex Patient Condition - See Comments Technique: Dl-fne-ghs-of-phase, T2-weighted, diffusion weighted images were followed by dynamic gadolinium enhanced T1 fat-suppressed gradient echo images of the abdomen. Subtraction imaging performed. Comparison: 08/12/2020, 02/19/2020 Findings: Lower chest: See same day chest CT report Hepatobiliary: New diffusion restricting subcentimeter lesion anterior right lobe, portal venous outside 148, B800#120. This corresponds to one of the lesion seen on today's chest CT (the other lesion seen on current chest CT and marked with arrow probably represents tiny fluid signal cyst as seen on T2 fat sat #8) There is a similar new diffusion restricting subcentimeter lesion seen posterior aspect of left lobe, segment 2/3, visible on T2 fat sat #14, B800#180, and postcontrast portal venous #183). Tiny focal diffusion restricting noted anterior aspect of left lobe near falciform ligament, #168 B800, but not clearly seen on postcontrast series, unchanged from prior MR. Tiny area of focal diffusion restriction present right lobe near the cora hepatis, B800#192 not clearly visible on other sequences, new compared to prior MR, suspicious. Small area of diffusion restriction posterior right lobe seen on the 02/19/[address] is not visible on current study, similar to most recent prior MR. Gallbladder and biliary tree without significant finding. There is . Spleen, pancreas, adrenal glands: Spleen, pancreas and adrenal glands without significant finding. Kidneys, proximal ureters: No significant finding. Tiny bilateral cysts, no hydronephrosis. Bowel: No bowel obstruction. Peritoneal cavity: No free fluid or fluid collection. Lymphovascular: . No concerning vascular finding portal and hepatic veins. No pathologically enlarged lymph nodes Abdominal wall: Free of hernias. Musculoskeletal: Posterior spinal fusion changes. No concerning marrow signal abnormality Localizer: Buttocks granulomas. Procedure Note Pavan Ceron MD - 11/24/2020 MR ABDOMEN W WO CONTRAST 11/24/2020 11:00 AM Signs and Symptoms/Comments: Complex Patient Condition - See Comments Technique: Us-wke-hau-of-phase, T2-weighted, diffusion weighted images were followedby dynamic gadolinium enhanced T1 fat-suppressed gradient echo images ofthe abdomen. Subtraction imaging performed. Comparison: 08/12/2020, 02/19/2020 Findings: Lower chest: See same day chest CT report Hepatobiliary: New diffusion restricting subcentimeter lesion anteriorright lobe, portal venous outside 148, B800#120. This corresponds to oneof the lesion seen on today's chest CT (the other lesion seen on currentchest CT and marked with arrow probably represents tiny fluid signal cystas seen on T2 fat sat #8) There is a similar new diffusion restricting subcentimeter lesion seenposterior aspect of left lobe, segment 2/3, visible on T2 fat sat #14,B800#180, and postcontrast portal venous #183). Tiny focal diffusion restricting noted anterior aspect of left lobe nearfalciform ligament, #168 B800, but not clearly seen on postcontrastseries, unchanged from prior MR. Tiny area of focal diffusion restriction present right lobe near the portahepatis, B800#192 not clearly visible on other sequences, new compared toprior MR, suspicious. Small area of diffusion restriction posterior right lobe seen on the02/19/[address] is not visible on current study, similar to mostrecent prior MR. Gallbladder and biliary tree without significant finding. There is . Spleen, pancreas, adrenal glands: Spleen, pancreas and adrenal glandswithout significant finding. Kidneys, proximal ureters: No significant finding. Tiny bilateral cysts,no hydronephrosis. Bowel: No bowel obstruction. Peritoneal cavity: No free fluid or fluid collection. Lymphovascular: . No concerning vascular finding portal and hepatic veins.No pathologically enlarged lymph nodes Abdominal wall: Free of hernias. Musculoskeletal: Posterior spinal fusion changes. No concerning marrowsignal abnormality Localizer: Buttocks granulomas. IMPRESSION 1. New subcentimeter diffusion restricting hypoenhancing liver lesionsconsistent with recurrent metastatic disease Augustina Colin MD PhD IMG MRI ORDERABLES documented in this encounter Visit Diagnoses Diagnosis Malignant neoplasm of right female breast, unspecified estrogen receptor status, unspecified site of breast (HCC-CMS) documented in this encounter Administered Medications Inactive Administered Medications - up to 3 most recent administrations Medication Order MAR Action Action Date Dose Rate Site gadobutroL (GADAVIST PFS) solution solution 1-15 mmol 1-15 mmol (1-15 mL), intravenous, Once in imaging, 1 dose, Starting on 11/24/20 at 1225, Until Tue11/24/20 at 1225, Routine, Imaging Protocol Orders Given 11/24/2020 12:25 EDT 6.5 mmol documented in this encounter Care Teams Er Registrar Relationship Specialty Start Date End Date Linda Blancas MD [facility] [address] [place] [address] PCP - General 01/06/11 Adolfo Carreno MD [address] [place] [address] 2 [place] [phone] General Surgery 04/26/19 Augustina Colin MD PhD [address] [place] [address] 2 [place] [phone] Medical Oncology 04/26/19 documented as of this encounter
--- OUTSIDE RECORDS SUMMARY | 2024-03-20 14:55 | XMS_ITS | Encounter Summary ---
Author Organization [facility] Address [address] [place] [address] Care Team Providers Care Vessel Slag Worker Name Role Phone Linda Blancas MD Primary Care Provider [phone] Adolfo Carreno MD Unavailable [phone] Augustina Colin MD PhD Unavailable Unavailable Encounter Details Date Type Department Care Team (Latest Contact Info) Description 11/24/2020 Travel Social History Tobacco Use Types Packs/Day [...] Contact Info) Description 04/02/2024 10:30 EDT Appointment [facility] Interventional Radiology Unit [address] [place] [address] [phone] 04/02/2024 15:15 EDT Office Visit [facility] Surgical Oncology - [address] [phone] Adolfo Carreno MD [address] [place] [address] [phone] 04/05/2024 9:[address] [facility] - [facility] Palliative Care Services [address] [place] [address] [phone] Chichi Woods MD [address] [place] [address] [phone] 04/11/2024 15:00 EDT Telemedicine [facility] Hematology & Oncology [address] [phone] Alisson Carreon MD [address] [place] [address] [phone] 04/13/2024 13:30 EDT Appointment [facility] Hematology & Oncology [address] [phone] 04/13/2024 14:00 EDT Appointment [facility] Hematology & Oncology [address] [phone] 04/16/2024 10:[address] [facility] - [facility] Palliative Care Services [address] [place] [address] [phone] Chichi Woods MD [address] [place] [address], [address] [phone] 04/24/2024 9:00 EST Appointment [facility] Radiology CT Outpatient - [address] [phone] 04/24/2024 11:00 EST Appointment [facility] Breast Imaging - [facility] [address] [place] [address] [place], [place] 680331 04/27/2024 12:00 EST Appointment [facility] Hematology & Oncology - [address] [phone] 05/02/2024 15:00 EST Telemedicine [facility] Hematology & Oncology - [address] [phone] Alisson Carreon MD [address] [place] [address], Level 2 [place] [phone] 05/04/2024 10:15 EST Ancillary Procedure [facility] Cardiology - [place] [address] 05/04/2024 11:30 EST Appointment [facility] Hematology & Oncology - [address] [phone] 05/04/2024 12:00 EST Appointment [facility] Hematology & Oncology [address] [phone] 06/12/2024 13:00 EST Appointment [facility] Radiology CT - [address] [phone] documented as of this encounter Visit Diagnoses Not on filedocumented in this encounter Care Teams Vessel Slag Worker Relationship Specialty Start Date End Date Linda Blancas MD [facility] [address] [place] [address] PCP - General 01/06/11 Adolfo Carreno MD [address] [place] [address], [facility] 2 [place] [phone] General Surgery 04/26/19 Augustina Colin MD PhD [address] [place] [address], [facility] 2 [place] [phone] Medical Oncology 04/26/19 documented as of this encounter
--- OUTSIDE RECORDS SUMMARY | 2024-03-20 14:55 | XMS_ITS | Encounter Summary ---
Author Organization [facility] Address [address] [place] [address] Care Team Providers Care Pie Maker Name Role Phone Linda Blancas MD Primary Care Provider [phone] Adolfo Carreno MD Unavailable [phone] Augustina Colin MD PhD Unavailable Unavailable Reason for Visit * Radiology Services (Routine) - Closed Specialty Diagnoses / Procedures Referred By Doug hearn Referred To Contact Nuclear Medicine Diagnoses Malignant neoplasm of right female breast, unspecified estrogen receptor status, unspecified site of breast ([facility]) Procedures NM BONE WHOLE BODY NM BONE SCAN 3 PHASE Augustina Colin MD PhD Referral ID Status Reason Start Date Expiration Date Visits Re quested Visits Authorized [id number] Closed 09/03/2020 1 1 Encounter Details Date Type Department Care Team (Latest Contact Info) Description 11/24/2020 10:03 EDT [facility] Nuclear Medicine and PET - [address] [address] Discharge Disposition: Home or Self Care Social [...] Tablets by mouth as needed. 12/07/2023 mv-mn/C/glutamin/lysin/ [id number] (AIRBORNE, ASCORBATE SODIUM, ORAL) Take by mouth [...] 04/02/2024 10:30 EDT Appointment [facility] Interventional Radiology Unit [address] [place] [address] [phone] 04/02/2024 15:15 EDT Office Visit [facility] Surgical Oncology - [address] [phone] Adolfo Carreno MD [address] [place] [address], [facility] 2 [place] [phone] 04/05/2024 9:30 EDT Telemedicine [facility] - [facility] Palliative Care Services [address] [place] [address] [phone] Chichi Woods MD [address] [place] [address] [phone] 04/11/2024 15:00 EDT Telemedicine [facility] Hematology & Oncology - [address] [phone] Alisson Carreon MD [address] [place] [address], [facility] 2 [place] [phone] 04/13/2024 13:30 EDT Appointment [facility] Hematology & Oncology - [address] [phone] 04/13/2024 14:00 EDT Appointment [facility] Hematology & Oncology [address] [address] 04/16/2024 10:00 EST Telemedicine [facility] - [facility] Palliative Care Services [address] [place] [address] [phone] Chichi Woods MD [address] [place] [address], [address] [phone] 04/24/2024 9:00 EST Appointment [facility] Radiology CT Outpatient - [address] [id number] 04/24/2024 11:00 EST Appointment [facility] Breast Imaging - [facility] [address] [place] [address] [place], [place] 638121 04/27/2024 12:00 EST Appointment [facility] Hematology & Oncology [address] [phone] 05/02/2024 15:00 EST Telemedicine [facility] Hematology & Oncology [address] 544751 Alisson Carreon MD [address] [place] [address], Level 2 [place] [phone] 05/04/2024 10:15 EST Ancillary Procedure [facility] Cardiology - [place] [address] 05/04/2024 11:30 EST Appointment [facility] Hematology & Oncology [address] [phone] 05/04/2024 12:00 EST Appointment [facility] Hematology & Oncology - [address] [phone] 06/12/2024 13:[address] [facility] Rad[address] CT - [address] [place] [address] [place] [address] documented as of this encounter Procedures Procedure Name Priority Date/Time Associated Diagnosis Comments NM BONE WHOLE BODY Routine 11/24/2020 14 :12 EDT Malignant neoplasm of right female breast, unspecified estrogen receptor status, unspecified site of breast ([facility]) documented in this encounter Results * NM [...] on filedocumented in this encounter Care Teams Pie Maker Relationship Specialty Start Date End Date Linda Blancas MD [facility] [address] [place] [address] PCP - General 01/06/11 Adolfo Carreno MD [address] [place] [address] [phone] General Surgery 04/26/19 Augustina Colin MD PhD [address] [place] [phone] Medical Oncology 04/26/19 documented as of this encounter
--- OUTSIDE RECORDS SUMMARY | 2024-03-20 14:55 | XMS_ITS | Encounter Summary ---
Author Organization [facility] Address [address] [place] [address] Care Team Providers Care Operational Intelligence Analyst Name Role Phone Linda Blancas MD Primary Care Provider Adolfo Carreno MD Unavailable [phone] Augustina Colin MD PhD Unavailable Unavailable Reason for Visit * Reason Comments Injections Encounter Details Date Type Department Care Team (Latest Contact Info) Description 01/22/2021 14:57 EDT - 01/22/2021 23:59 EDT Hospital Encounter [facility] Hematology & Oncology - [place] [address] [place] [address] Malignant neoplasm of right female breast, unspecified [...] Sign Reading Time Taken Comments Blood Pressure 113/50 01/22/2021 1514 EDT Pulse 99 01/22/2021 1514 EDT Temperature - - Respiratory Rate 16 01/22/2021 1514 EDT Oxygen Saturation 100% 01/22/2021 1514 EDT Inhaled Oxygen Concentration - - Weight [...] Tablets by mouth as needed. 12/07/2023 mv-mn/C/glutamin/lysin/ [id number] (AIRBORNE, ASCORBATE SODIUM, ORAL) Take by mouth [...] Progress Notes * Yuliana Vásquez RN - 01/22/2021 1500 EDT Today is cycle 12 of hormonal treatment for Sendy. She had blood drawn earlier in the day. I administered the deep IM injections in her right and left upper outer gluteus muscles and they were tolerated well. She had no concerns or questions prior to leaving. I was supervised by Dr. Lopez who was present and immediately available at the clinic. Yuliana Vásquez RN 01/22/2021 documented in this encounter Miscellaneous Notes * Addendum Note - Nadeen Gonzalez - 01/22/2021 1500 EDTEncounter addended by: Nadeen Gonzalez on: 02/12/2021 10:06 Actions taken: Charge Capture section accepted documented in this encounter Plan of Treatment Upcoming Encounters Date Type Department Care Team (Late st Contact Info) Description 04/02/2024 10:30 EDT Appointment [facility] Interventional Radiology Unit [address] [place] [address] 04/02/2024 15:15 EDT Office Visit [facility] Surgical Oncology - [place] [address] [place], [place] [phone] Adolfo Carreno MD [address] [place] [address] 2 [place] [phone] 04/05/2024 9:30 EDT Telemedicine [facility] Palliative Care Services [address] [place] [address] Chichi Woods MD [address] [place] [address] [phone] 04/11/2024 15:00 EDT Telemedicine [facility] Hematology & Oncology - [address] [phone] Alisson Carreon MD [address] [place] [address] 2 [place] [phone] 04/13/2024 13:30 EDT Appointment [facility] Hematology & Oncology - [address] [phone] 04/13/2024 14:00 EDT Appointment [facility] Hematology & Oncology - [address] [phone] 04/16/2024 10:00 EST Telemedicine [facility] Palliative Care Services [address] [place] [address] [phone] Chichi Woods MD [address] [place] [address] [phone] 04/24/2024 9:00 EST Appointment [facility] Radiology CT Outpatient - [address] [id number] 04/24/2024 11:00 EST Appointment [facility] Breast Imaging - [address] [place] [address] 04/27/2024 12:00 EST Appointment [facility] Hematology & Oncology - [address] [phone] 05/02/2024 15:00 EST Telemedicine [facility] Hematology & Oncology [address] [phone] Alisson Carreon MD [address] [place] [address], Level [address] [place] [phone] 05/04/2024 10:15 EST Ancillary Procedure [facility] Cardiology - [address] [place] [address] 05/04/2024 11:30 EST Appointment [facility] Hematology & Oncology - [address] [phone] 05/04/2024 12:00 EST Appointment [facility] Hematology & Oncology [address] [phone] 06/12/2024 13:00 EST Appointment [facility] Radiology CT - [address] [phone] documented as of this encounter Visit Diagnoses Diagnosis Malignant neoplasm of right female breast, unspecified estrogen receptor status, unspecified site of breast (HCC-CMS)- Primary documented in this encounter Administered Medications Inactive Administered Medications - up to 3 most recent administrations Medication Order MAR Action Action Date Dose Rate Site fulvestrant (FASLODEX) injection 500 mg 500 mg, intramuscular, NOW X1, 1 dose, On Michelle 01/22/21 at 1545, Routine Given 01/22/2021 15:22 EDT 500 mg Left Gluteus Medius/Ventrogluteal documented in this encounter Orders Appointment Requests Count Last Ordered Date Fi rst Ordered Date ONCBCN INJECTION APPOINTMENT REQUEST 1 01/11 documented in this encounter Care Teams Operational Intelligence Analyst Relationship Specialty Start Date End Date Linda Blancas MD [facility] [address] [place] [address] PCP - General 01/06/11 Adolfo Carreno MD [address] [place] [address] [phone] General Surgery 04/26/19 Augustina Colin MD PhD [address] [place] [phone] Medical Oncology 04/26/19 documented as of this encounter
--- OUTSIDE RECORDS SUMMARY | 2024-03-20 14:55 | XMS_ITS | Encounter Summary ---
Author Organization [facility] Address [address] [place] [address] Care Team Providers Care Appraisal Coordinator Name Role Phone Linda Blancas MD Primary Care Provider [phone] Adolfo Carreno MD Unavailable [phone] Augustina Colin MD PhD Unavailable Unavailable Encounter Details Date Type Department Care Team (Latest Contact Info) Description 10/30/2020 11:45 EDT Phlebotomy Only [facility] Hematology & Oncology - Main [place] [address] [place] [address] Blood Doctor, [facility] Hem Onc Metastatic breast cancer (HCC-CMS) [...] Progress Notes * Perla Wynne MA - 10/30/2020 1145 EDT Venipuncture performed for Dittus Per orders of Dittus Number of attempts 1 LF AC I was supervised by John who was present and immediately available in the office suite. PERLA WYNNE MA 10/30/2020 12:21 documented in this encounter Plan of Treatment Upcoming Encounters Date Type Department Care Team (Late st Contact Info) Description 04/02/2024 10:30 EDT Appointment [facility] Interventional Radiology Unit [address] [place] [address] [phone] 04/02/2024 15:15 EDT Office Visit [facility] Surgical Oncology - [address] [phone] Adolfo Carreno MD [facility] Level [address] [place] [phone] 04/05/2024 9:30 EDT Telemedicine [facility] Palliative Care Services [address], [place] [phone] Chichi Woods MD 111 [facility], [address] [phone] 04/11/2024 15:00 EDT Telemedicine [facility] Hematology & Oncology - [address] [phone] Alisson Carreon MD [address] [place] [address] 2 [place] [phone] 04/13/2024 13:30 EDT Appointment [facility] Hematology & Oncology - [address] [phone] 04/13/2024 14:00 EDT Appointment [facility] Hematology & Oncology [address] [id number] 04/16/2024 10:00 EST Telemedicine [facility] - [facility] Palliative Care Services [address] [place] [address] [phone] Chichi Woods MD [address] [place] [phone] 04/24/2024 9:00 EST Appointment [facility] Radiology CT Outpatient - [address] [id number] 04/24/2024 11:00 EST Appointment [facility] Breast Imaging - [address] [phone] 04/27/2024 12:00 EST Appointment [facility] Hematology & Oncology - [address] [phone] 05/02/2024 15:00 EST Telemedicine [facility] Hematology & Oncology - [address] [phone] Alisson Carreon MD [address] [place] [address], [facility] [address] [place] [phone] 05/04/2024 10:15 EST Ancillary Procedure [facility] Cardiology - [address] [place], [place] [phone] 05/04/2024 11:30 EST Appointment [facility] Hematology & Oncology - [address] [phone] 05/04/2024 12:00 EST Appointment [facility] Hematology & Oncology [address] [phone] 06/12/2024 13:00 EST Appointment [facility] Radiology CT - [address] [phone] documented as of this encounter Procedures Procedure Name Priority Date/Time Associated Diagnosis Comments COMPREHENSIVE METABOLIC PANEL (ONCOLOGY USE ONLY-INC MG) STAT 10/30/2020 12:20 EDT Metastatic breast cancer (HCC-CMS) documented in this encounter Results * COMPREHENSIVE METABOLIC PANEL (ONCOLOGY USE ONLY-INC MG) (10/30/2020 12:20 EDT) Sodium 143 136 - 145 mEq/L 10/30/2020 12:46 [facility] Potassium 4.6 3.5 - 5.0 mEq/L 10/30/2020 12:46 [facility] Chloride 107 96 - 110 mEq/L 10/30/2020 12:46 [facility] CO2 Total 29 22 - 32 mEq/L 10/30/2020 12:46 [facility] Glucose 91 70 - 100 mg/dL 10/30/2020 12:46 [facility] BUN 23 10 - 26 mg/dL 10/30/2020 12:46 [facility] Creatinine 0.67 0.52 - 1.04 mg/dL 10/30/2020 12:46 [facility] eGFR 97 >60 mL/min/1.7 3m2 10/30/2020 12:46 [facility] Comment:eGFR calculated gordo ureña CKD-EPI equation for non- Americans. Multiply eGFR by 1.16 for patients. Total Protein 7.1 6.3 - 8.2 g/dL 10/30/2020 12:46 EDT [facility] Albumin 4.3 3.4 - 4.9 g/dL 10/30/2020 12:46 [facility] Alkaline Phosphatase 63 38 - 126 U/L 10/30/2020 12:46 [facility] AST 38 15 - 46 U/L 10/30/2020 12:46 T [facility] ALT 24 <35 U/L 10/30/2020 12:46 [facility] Bilirubin, Total <0.5 <1.4 mg/dL 10/31/19 12:46 T [facility] Calcium 10.1 8.5 - 10.5 mg/dL 10/30/2020 12:46 [facility] Calculated Calcium 9.9 8.5 - 10.5 mg/dL 10/30/2020 12:46 [facility] Magnesium 2.0 1.7 - 2.8 mg/dL 10/30/2020 12:46 [facility] Blood VENOUS BLOOD / Unknown Venipuncture / Unknown 10/30/2020 12:20 EDT 10/30/2020 12:29 EDT Augustina Colin MD PhD CHEMISTRY & BLOOD GA S ORDERABLES [facility] [address] [place] [address] documented in this encounter Visit Diagnoses Diagnosis Metastatic breast cancer- Primary documented in this encounter Care Teams Appraisal Coordinator Relationship Specialty Start Date End Date Linda Blancas MD [address] [place] [address] PCP - General 01/06/11 Adolfo Carreno MD 111 [facility], [facility], Level [address] [place] [phone] General Surgery 04/26/19 Augustina Colin MD PhD [address] [place] [address] 2 [place] [phone] Medical Oncology 04/26/19 documented as of this encounter
--- OUTSIDE RECORDS SUMMARY | 2024-03-20 14:55 | XMS_ITS | Encounter Summary ---
Author Organization [facility] Address [address] [place] [address] Care Team Providers Care Senior Painter Name Role Phone Linda Blancas MD Primary Care Provider [phone] Adolfo Carreno MD Unavailable [phone] Augustina Colin MD PhD Unavailable Unavailable Reason for Visit * Reason Comments Injections Encounter Details Date Type Department Care Team (Latest Contact Info) Description 12/25/2020 8:08 EDT - 12/25/2020 23:59 EDT Hospital Encounter [facility] Cancer Center Hematology & Oncology - Main [place] [address] [place] [address] Malignant neoplasm of right female breast, unspecified [...] Sign Reading Time Taken Comments Blood Pressure 140/61 12/25/2020 0823 EDT Pulse 85 12/25/2020 0823 EDT Temperature 36.4 ??C (97.5 ??F) 12/25/2020 0823 EDT Respiratory Rate 16 12/25/2020 08 EDT Oxygen Saturation 99% 12/25/2020 08 EDT Inhaled Oxygen Concentration - - Weight 60.8 kg (134 lb) 12/25/2020 08 EDT Height 156.6 cm (5' 1.65) 12/25/2020 08 EDT Body Mass Index 24.78 12/25/2020 08 EDT documented in this encounter Functional Status [...] Tablets by mouth as needed. 12/07/2023 mv-mn/C/glutamin/lysin/ [id number] (AIRBORNE, ASCORBATE SODIUM, ORAL) Take by mouth [...] Progress Notes * Yuliana Vásquez RN - 12/25/2020 0830 EDT Sendy is here today for cycle 11 of treatment. She is feeling well and has no concerns. I administered Faslodex bilaterally in outer gluteus muscles and they were tolerated well. Sendy understands to contact team with any changes. I was supervised by Dr. Rolle who was present and immediately available at the clinic. Yuliana Vásquez RN 12/25/2020 1000 documented in this encounter Miscellaneous Notes * Addendum Note - Reta Kuhn - 12/25/2020 0830 EDTEncounter addended by: Reta Kuhn on: 01/12/2021 13:50 Actions taken: Charge Capture section accepted documented in this encounter Plan of Treatment Upcoming Encounters Date Type Department Care Team (Late st Contact Info) Description 04/02/2024 10:30 EDT Appointment [facility] Interventional Radiology Unit [address] [place] [address] 04/02/2024 15:15 EDT Office Visit [facility] Surgical Oncology - [address] [phone] Adolfo Carreno MD [address] [place] [address] 2 [place] [phone] 04/05/2024 9:30 EDT Telemedicine [facility] [address] [place] [address] [phone] Chichi Woods MD [address] [place] [phone] 04/11/2024 15:00 EDT Telemedicine [facility] Hematology & Oncology - [address] [address] Alisson Carreon MD [address] [place] [address] 2 [place] [phone] 04/13/2024 13:30 EDT Appointment [facility] Hematology & Oncology - [address] [phone] 04/13/2024 14:00 EDT Appointment [facility] Hematology & Oncology - [address] [phone] 04/16/2024 10:00 EST Telemedicine [facility] [address] [place] [address] [phone] Chichi Woods MD [address] [place] [phone] 04/24/2024 9:00 EST Appointment [facility] Radiology CT Outpatient - [address] [phone] 04/24/2024 11:00 EST Appointment [facility] Breast Imaging - [facility] [place] [address] [place] [address] 04/27/2024 12:00 EST Appointment [facility] Hematology & Oncology [address] [address] 05/02/2024 15:00 EST Telemedicine [facility] Hematology & Oncology [address] [phone] Alisson Carreon MD [address] [place] [address], Level [address] [place] [phone] 05/04/2024 10:15 EST Ancillary Procedure [facility] Cardiology - [address] [place] [address] 05/04/2024 11:30 EST Appointment [facility] Hematology & Oncology - [address] [phone] 05/04/2024 12:00 EST Appointment [facility] Hematology & Oncology [address] [phone] 06/12/2024 13:00 EST Appointment [facility] Radiology CT - [address] [phone] documented as of this encounter Visit Diagnoses Diagnosis Malignant neoplasm of right female breast, unspecified estrogen receptor status, unspecified site of breast (HCC-CMS)- Primary documented in this encounter Administered Medications Inactive Administered Medications - up to 3 most recent administrations Medication Order MAR Action Action Date Dose Rate Site fulvestrant (FASLODEX) injection 500 mg 500 mg, intramuscular, NOW X1, 1 dose, On Michelle 12/25/20 at 0915, Routine Given 12/25/2020 8:56 EDT 500 mg documented in this encounter Orders Appointment Requests Count Last Ordered Date Fi rst Ordered Date ONCBCN INJECTION APPOINTMENT REQUEST 1 12/11 documented in this encounter Care Teams Senior Painter Relationship Specialty Start Date End Date Linda Blancas MD [facility] [address] [place] [address] PCP - General 01/06/11 Adolfo Carreno MD [address] [place] [phone] General Surgery 04/26/19 Augustina Colin MD PhD [address] [place] [phone] Medical Oncology 04/26/19 documented as of this encounter
--- OUTSIDE RECORDS SUMMARY | 2024-03-20 14:55 | XMS_ITS | Encounter Summary ---
Author Organization [facility] Address [address] [place] [address] Care Team Providers Care International Sales Representative Name Role Phone Linda Blancas MD Primary Care Provider Adolfo Carreno MD Unavailable [phone] Augustina Colin MD PhD Unavailable Unavailable Encounter Details Date Type Department Care Team (Latest Contact Info) Description 11/27/2020 9:54 EDT - 11/27/2020 23:59 EDT Hospital Encounter [facility] Cancer Center Hematology & Oncology - Main [place] [address] [place], [place] [phone] Malignant neoplasm of right female breast, unspecified [...] Tablets by mouth as needed. 12/07/2023 mv-mn/C/glutamin/lysin/ [id number] (AIRBORNE, ASCORBATE SODIUM, ORAL) Take by mouth [...] Progress Notes * Yuliana Vásquez RN - 11/27/2020 1100 EDT Today is cycle 10 of hormonal treatment for Sendy. She arrives at the short stay area after seeing oncologist and having blood samples drawn and sent to labs. She has no concerns or questions today. I administered Faslodex IM into the right mid and left mid upper gluteus muscles. She tolerated theinjections well. She returns in a month for the same. I was supervised by Dr. Rolle who was present and immediately available at the clinic. Yuliana Vásquez RN 11/27/2020 1136 documented in this encounter Miscellaneous Notes * Addendum Note - Reta Kuhn - 11/27/2020 1100 EDTEncounter addended by: Reta Kuhn on: 12/12/2020 10:10 Actions taken: Charge Capture section accepted documented in this encounter Plan of Treatment Upcoming Encounters Date Type Department Care Team (Late st Contact Info) Description 04/02/2024 10:30 EDT Appointment [facility] Interventional Radiology Unit [address] [place] [address] [phone] 04/02/2024 15:15 EDT Office Visit [facility] Surgical Oncology - [address] [phone] Adolfo Carreno MD 111 [facility], Level [address] [place] [phone] 04/05/2024 9:30 EDT Telemedicine [facility] Palliative Care Services [address] [place] [address] [phone] Chichi Woods MD [address] [place] [phone] 04/11/2024 15:00 EDT Telemedicine [facility] Hematology & Oncology [address] [phone] Alisson Carreon MD [address] [place] [address], Level [address] [place] [phone] 04/13/2024 13:30 EDT Appointment [facility] Hematology & Oncology [address] [phone] 04/13/2024 14:00 EDT Appointment [facility] Hematology & Oncology [address] [phone] 04/16/2024 10:00 EST Telemedicine [facility] Palliative Care Services [address] [place] [address] [phone] Chichi Woods MD [address] [place] [phone] 04/24/2024 9:00 EST Appointment [facility] Radiology CT Outpatient - [address] [phone] 04/24/2024 11:00 EST Appointment [facility] Breast Imaging - [address] [phone] 04/27/2024 12:00 EST Appointment [facility] Hematology & Oncology [address] [phone] 05/02/2024 15:00 EST Telemedicine [facility] Hematology & Oncology [address] [address] Alisson Carreon MD [address] [place] [phone] 05/04/2024 10:15 EST Ancillary Procedure [facility] Cardiology - [address] [place], [place] [phone] 05/04/2024 11:30 EST Appointment [facility] Hematology & Oncology [address] [phone] 05/04/2024 12:00 EST Appointment [facility] Hematology & Oncology [address] [phone] 06/12/2024 13:00 EST Appointment [facility] Radiology CT - [address] [phone] documented as of this encounter Visit Diagnoses Diagnosis Malignant neoplasm of right female breast, unspecified estrogen receptor status, unspecified site of breast (HCC-[facility])- Primary documented in this encounter Administered Medications Inactive Administered Medications - up to 3 most recent administrations Medication Order MAR Action Action Date Dose Rate Site fulvestrant (FASLODEX) injection 500 mg 500 mg, intramuscular, NOW X1, 1 dose, On Michelle 11/27/20 at 1130, Routine Given 11/27/2020 11:24 EDT 500 mg Left Gluteus Medius/Ventrogluteal documented in this encounter Orders Appointment Requests Count Last Ordered Date Fi rst Ordered Date ONCBCN INJECTION APPOINTMENT REQUEST 1 11/11 documented in this encounter Care Teams International Sales Representative Relationship Specialty Start Date End Date Linda Blancas MD [facility] [address] [place], [place] 8750[address] PCP - General 01/06/11 Adolfo Carreno MD [address] [place] [phone] General Surgery 04/26/19 Augustina Colin MD PhD [address] [place] [address], [facility] 2 [place] [phone] Medical Oncology 04/26/19 documented as of this encounter
--- OUTSIDE RECORDS SUMMARY | 2024-03-20 14:55 | XMS_ITS | Encounter Summary ---
Author Organization [facility] Address [address] [place] [address] Care Team Providers Care Action Finisher Name Role Phone Linda Blancas MD Primary Care Provider [phone] Adolfo Carreno MD Unavailable [phone] Augustina Colin MD PhD Unavailable Unavailable Reason for Referral * Radiology Services (Routine) - Closed Specialty Diagnoses / Procedures Referred By Contac t Referred To Contact Radiology Diagnoses Malignant neoplasm of right female breast, unspecified estrogen receptor status, unspecified site of breast ([facility]) Procedures MR ABDOMEN W WO CONTRAST Augustina Colin MD PhD Referral ID Status Reason Start Date Expiration Date Visits Re quested Visits Authorized [id number] Closed 02/20/2021 08/19/2021 1 1 * Radiology Services (Routine) - New Request Specialty Diagnoses / Procedures Referred By Contac t Referred To Contact Diagnoses Malignant neoplasm of right female breast, unspecified estrogen receptor status, unspecified site of breast ([facility]) Procedures DXA DUAL XRAY ABSORPTIOMETRY FOR BONE DENSITY ([facility]) Augustina Colin MD PhD Referral ID Status Reason Start Date Expiration Date V isits Requested Visits Authorized [id number] New Request 11/27/2020 1 1 Reason for Visit * Reason Comments Telemedicine Video Visit Follow-up Encounter Details Date Type Department Care Team (Late st Contact Info) Description 11/27/2020 10:30 EDT Telemedicine [facility] Hematology & Oncology - Main [address] [address] Augustina Colin MD PhD Malignant neoplasm of [...] 10:04 EDT documented as of this encounter Last Filed Vital Signs Vital Sign Reading Time Taken Comments Blood Pressure 143/72 11/27/2020 1011 EDT Pulse 85 11/27/2020 1011 EDT Temperature 35.9 ??C (96.6 ??F) 11/27/2020 1011 EDT Respiratory Rate 16 11/27/2020 1011 EDT Oxygen Saturation 100% 11/27/2020 1011 EDT Inhaled Oxygen Concentration - - Weight 62 kg (136 lb 9.6 oz) 11/27/2020 1011 EDT Height 155.5 cm (5' 1.22) 11/27/2020 1011 EDT Body Mass Index 25.63 11/27/2020 1011 EDT documented in this encounter Functional Status [...] Progress Notes * Augustina Colin MD - 11/27/2020 1030 EDT REASON FOR OFFICE VISIT: ??Discussion of [...] of ER+ DCIS. a. ??Ultrasound performed in [place]??identifying an irregular heterogeneous soft tissue mass measuring 1.2 x 1.2 x 1.5 cm. ?? 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 ??HER-2 1+ by IHC. ??ANNE MARIE revealed [...] breast tumor 07/07/17 and placement of tissue veneer repairer machine. ??1.9 cm tumor at time of surgery, [...] to prior MR, suspicious. - Nuclear bone scan??11/24/20: Resolution of increased [...] to faslodex and scan results. She had restaging scans on Tuesday. She had some questions but was pleased that there didnot appear to be progression. She tolerates faslodex other than some discomfort at the site of the injection. She has not had problems with hot flashes. She continues to be very active. ROS: A 10 point review of [...] FORMULA ORAL) Take by mouth daily. ??? mv-mn/C/glutamin/lysin/[id number] ([place], ASCORBATE SODIUM, ORAL) Take by mouth [...] active. She has several family members visiting [facility] summer. Objective: There were no vitals taken for this visit. Estimated body mass index is 25.87 kg/m?? as calculated from the following: Height as of 10/02/20: 155.5 cm (61.22). Weight as of 10/02/20: 62.6 kg (137 lb 14.4 oz). ECOG Performance Status: 0 General: Comfortable, cooperative and in no apparent distress NEURO: Alert and oriented x 3; Grossly neurologically intact DIAGNOSTIC DATA No visits with results within 1 Day(s) from this visit. Latest known visit with results is: Phlebotomy Only on 10/30/2020 Component Date Value Ref Range Status ??? Sodium 10/30/2020 143 136 - 145 mEq/L Final ??? Potassium 10/30/2020 4.6 3.5 - 5.0 mEq/L Final ??? Chloride 10/30/2020 107 96 - 110 mEq/L Final ??? CO2 Total 10/30/2020 29 22 - 32 mEq/L Final ??? Glucose 10/30/2020 91 70 - 100 mg/dL Final ??? BUN 10/30/2020 23 10 - 26 mg/dL Final ??? Creatinine 10/30/2020 0.67 0.52 - 1.04 mg/dL Final ? ? eGFR 10/30/2020 97 >60 mL/min/1.73m2 Final eGFR calculated using CKD-EPI equation for non- Americans. Multiply eGFR by 1.16 for AfricanAmerican patients. ??? Total Protein 10/30/2020 7.1 6.3 - 8.2 g/dL Final ??? Albumin 10/30/2020 4.3 3.4 - 4.9 g/dL Final ??? Alkaline Phosphatase 10/30/2020 63 38 - 126 U/L Final ??? AST 10/30/2020 38 15 - 46 U/L Final ? ? ALT 10/30/2020 24 <35 U/L Final ? ? Bilirubin, Total 10/30/2020 <0.5 <1.4 mg/dL Final ??? Calcium 10/30/2020 10.1 8.5 - 10.5 mg/dL Final ??? Calculated Calcium 10/30/2020 9.9 8.5 - 10.5 mg/dL Final ??? Magnesium 10/30/2020 2.0 1.7 - 2.8 mg/dL Final ASSESSMENT: ??Ms Bernstein is a 60-year-old female with metastatic breast cancer.?? She startedon fluvesterant fall with abemaciclib added in March 2020 which was discontinued abemaciclib a few months later due to significant diarrhea. Her staging scans indicated a mixed response. The CT scan and MRI identified to small areas in the liver though these areas appear to be present on an MRI of the abdomen 3 months ago. The nuclear bone scan in dictated a decrease in uptake. Results suggest somewhat of a mixed response. She is tolerating Faslodex well. We will plan to continue Faslodex and get an MRI of the abdomen in 3 months. She is also due for a bone density scan. If she has progression in 3 months we could consider adding palbociclib as it is associated with less diarrhea than abemaciclib. She has had abemaciclib in the past which was associated with significant diarrhea. Zolendronic acid every 6 mos. She takes a vitamin D supplement and we have encouraged weight bearing exercise. PLAN: 1. Faslodex 500mg today and monthly 2. Zoledronic acid next due January 2021 3. MR abdomen 3mos; DXA Feb 4.??Continued follow-up with Dr. Carreno and Dr Boss 5. FUR 3 mo ?? Patient is encouraged call with any intercurrent [...] Info) Description 04/02/2024 10:30 EDT Appointment [facility] Interventional Radiology Unit [address] [place] [address] [phone] 04/02/2024 15:15 EDT Office Visit [facility] Surgical Oncology - [address] [phone] Adolfo Carreno MD [address] [place] [address] [phone] 04/05/2024 9:30 EDT Telemedicine [facility] Palliative Care Services [address] [place] [address] [phone] Chichi Woods MD [address] [place] [address] [phone] 04/11/2024 15:00 EDT Telemedicine [facility] Hematology & Oncology [address] [phone] Alisson Carreon MD [address] [place] [address] [phone] 04/13/2024 13:30 EDT Appointment [facility] Hematology & Oncology [address] [id number] 04/13/2024 14:00 EDT Appointment [facility] Hematology & Oncology [address] [id number] 04/16/2024 10:00 EST Telemedicine [facility] Palliative Care Services [address] [place] [address] [phone] Chichi Woods MD [address] [place] [address], [place] [address] [place] [phone] 04/24/2024 9:00 EST Appointment [facility] Radiology CT Outpatient - [address] [id number] 04/24/2024 11:00 EST Appointment [facility] Breast Imaging - [facility] [address] [place] [address] [place], [place] [phone] 04/27/2024 12:00 EST Appointment [facility] Hematology & Oncology - [address] [id number] 05/02/2024 15:00 EST Telemedicine [facility] Hematology & Oncology - [address] [phone] Alisson Carreon MD [address] [place] [address], [address] [place] [phone] 05/04/2024 10:15 EST Ancillary Procedure [facility] Cardiology - [address] [place], [place] [phone] 05/04/2024 11:30 EST Appointment [facility] Hematology & Oncology - [address] [phone] 05/04/2024 12:00 EST Appointment [facility] Hematology & Oncology [address] [phone] 06/12/2024 13:00 EST Appointment [facility] Radiology CT - [address] [phone] documented as of this encounter Results * DXA DUAL XRAY ABSORPTIOMETRY FOR BONE DENSITY ([facility]) (03/03/2021) DEXA Bone Density DEXA Bone Density, External Anatomical Region Laterality Modality Other Augustina Colin MD PhD IMG DEXA ORDERABLES * MR ABDOMEN W WO CONTRAST (03/02/2021 [...] Liver mets suspected, post treatment, monitoring Technique: Ya-xqj-bal-of-phase, T2-weighted, diffusion weighted images were followed by [...] identified. Localizer: No additional findings. Procedure Note Akselrod, Richard Ajit, MD - 03/02/2021 MR ABDOMEN W WO CONTRAST 03/02/2021 1:30 PM Signs and Symptoms/Comments: pt w/ possible liver mets; Liver mets suspected, post treatment,monitoring Technique: Pl-qio-piy-of-phase, T2-weighted, diffusion weighted images were followedby dynamic [...] 021 documented in this encounter Care Teams Action Finisher Relationship Specialty Start Date End Date Linda Blancas MD [facility] [address] [place] [address] PCP - General 01/06/11 Adolfo Carreno MD [address] [place] [address], [facility] [address] [place] [phone] General Surgery 04/26/19 Augustina Colin MD PhD [address] [place] [address], [facility] [address] [place] [phone] Medical Oncology 04/26/19 documented as of this encounter
--- OUTSIDE RECORDS SUMMARY | 2024-03-20 14:56 | XMS_ITS | Encounter Summary ---
Author Organization [facility] Address [address] [place] [address] Care Team Providers Care Building Services Supervisor Name Role Phone Linda Blancas MD Primary Care Provider [phone] Adolfo Carreno MD Unavailable [phone] Augustina Colin MD PhD Unavailable Unavailable Reason for Visit * Auth/Cert Specialty Diagnoses / Procedures Referred By Doug hearn Referred To Contact Diagnoses S/P breast reconstruction, right Lipoma of back Procedures AR REVISE BREAST RECONSTRUCTION AR EXC SKIN BENIG >4 CM TRUNK,ARM,LEG AR NIPPLE/AREOLA RECONSTRUCTION right back dog ear revision, left shoulder lipoma, right nipple reconstruction EXC, BENIGN LESION, BACK 4.0 CM NIPPLE/AREOLA RECONSTRUCTION UNILATERAL Referral ID Status Reason Start Date Expiration Date Visits Re quested Visits Authorized [id number] 07/02/2020 1 1 Encounter Details Date Type Department Care Team (Late st Contact Info) Description 09/08/2020 13:10 EDT - 09/08/2020 17:35 EDT Surgery [facility] [place] [address] [place] [address] Tylor Boss MD [address] [place] [address] excision of right lateral chest dog ear, excision of left back lipoma, right nipple revision with allograft [[id number] (CPT??)] Surgery Details Date/Time Status Location OR Service Patient Class Case Cl ass Case Type Trauma Case? 09/08/20 1310 Posted [facility] OR [facility] Plastics [facility] l Outpatient Surgery H - Elective Panel 1 Procedure LRB Anes Op Region Wound Class Comments excision of right lateral chest dog ear, excision of left back lipoma, right nipple revision with allograft Right General Breast Class I/ Clean 3.5 hours requested . Left General Back Class I/ Clean . Right General Nipple Class I/ Clean . Right General Nipple Class I/ Clean Surgeon Surgeon Role Service Panel Tylor Boss MD FACS Primary Plastics 1 Karen Singh PA-C Assisting Plastics 1 Florentin Barcenas MD Resident - Assisting Plastic s 1 Special Needs Alloderm: 2x4 medium thickness x2 documented in this encounter Social History Tobacco [...] have Coronavirus / COVID-19? No / Unsure 09/01/2020 9:53 EDT documented as of this encounter Last Filed Vital Signs Vital Sign Reading Time Taken Comments Blood Pressure 141/82 09/08/2020 1254 EDT Pulse - - Temperature 36.2 ??C (97.2 ??F) 09/08/2020 1254 EDT Respiratory Rate 16 09/08/2020 1254 EDT Oxygen Saturation 100% 09/08/2020 1254 EDT Inhaled Oxygen Concentration - - Weight 64 kg (141 lb 1.5 oz) 09/08/2020 1254 EDT Height 156.2 cm (5' 1.5) 09/08/2020 1254 EDT Body Mass Index 26.23 09/08/2020 1254 EDT documented in this encounter Functional Status [...] hours as needed for Pain. 08/30/2018 05/26/2021 cephalexin (KEFLEX) 500 mg capsule Take 1 Cap by mouth 4 times daily for 5 days. 20 Cap 09/08/2020 09/13/2020 DOXYLAMINE SUCCINATE (UNISOM ORAL) Take by mouth [...] Tablets by mouth as needed. 12/07/2023 mv-mn/C/glutamin/lysin/ [id number] (AIRBORNE, ASCORBATE SODIUM, ORAL) Take by mouth [...] 11/01/2016 01/13/2022 documented as of this encounter Ordered Prescriptions Prescription Sig Dispensed Refills Start Date End Da te HYDROmorphone (DILAUDID) 2 mg tablet Take 1 Tab by mouth every 4 hours as needed for Pain. Daily Max: 12 mg 10 Tab 09/08/2020 05/26/2021 cephalexin (KEFLEX) 500 mg capsule Take 1 Cap by mouth 4 times daily for 5 days. 20 Cap 09/08/2020 09/13/2020 documented in this encounter Discharge Disposition Disposition Code Departure Means Destination Home or Self Fpc documented in this encounter Progress Notes * Anusha Dc RN - 09/08/2020 1520 EDT Pt confirms ride home will be , who will be in surgical waiting area when in recovery. Pt confirms plan to text before going back to OR for surgery and will plan to come back to facility. * Caro Doshi RN - 09/08/2020 1347 EDT Preop Covid DOS screening questionnaire Please document by exception (only check those that apply). Have you had any of the following symptoms recently? No Yes Chronic ? Cough Shortness of breath or difficulty breathing Fever Chills Fatigue Muscle or body aches Severe Headache New loss of taste or smell Sore throat Congestion or runny nose Rash Nausea, vomiting, or diarrhea (rare in adults. More common in children) Were you covid tested? Yes When: 09/04/2020 Results: Negative If yes, have you self-isolated/quarantined since your test? Yes See admission vital signs documentation for admission temperature. documented in this encounter H&P Notes * Karen Singh PA-C - 09/08/2020 1543 EDT Plastic Surgery Admission H&P Admit Date: 09/08/2020 Date of Service: 09/08/2020 PCP: Linda Blancas Referring MD: Tylor Boss MD, FACS Chief Complaint: Pre op evaluation HPI: Sunshine Pleitez is a 60 y.o. female who presents with for evaluation today prior to surgery with Dr. Boss. No acute health complaints reported today. PMH PSH Past Medical History: Diagnosis Date ??? Acquired spondylolisthesis ??? Activity, other involving cardiorespiratory exercise snow shoeing ??? Allergy ??? Arthritis right big toe ??? Back pain spinal fussion no issues currently 08/25/20 ??? Breast cancer ([facility]) November 2003 DCIS - right breast ??? Breast cancer, right ([facility]) ??? Depression 08/25/20 well controlled ??? Environmental [...] [place] no complications ??? 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 CARPAL TUNNEL RELEASE 200705/07/2019 beir block - no complications ??? LIPOMA RESECTION 2001 05/07/2019 [place] no complications ??? MASTECTOMY Right ??? AR INSJ/RPLCMT BREAST IMPLANT Feb MASTECTOMY Bilateral 05/30/2019 Exchange right tissue jewelry making instructor to silicone implant, exchange of left implant for matching performedby Tylor Boss MD at [facility] OR Social History Family history Social History Tobacco Use ??? Smoking status: Never Smoker ??? Smokeless tobacco: Never Used Substance Use Topics ??? Alcohol use: Yes Alcohol/week: 1.0 - 3.0 standard drinks Types: 1 - 3 Glasses of wine per week Family History Problem Relation Age of Onset ??? Cancer Father bladder ??? Stroke Mother ??? Cancer Brother 59 esophageal ??? Stroke Brother ??? Liver Disease Brother ??? Cancer Maternal Uncle bladder ??? Breast Cancer Paternal Aunt 35 ??? Cancer Paternal Aunt 35 breast Medications Current Facility-Administered Medications Medication Route Frequency ??? lactated ringers (LR) infusion intravenous CONTINUOUS ??? lidocaine (PF) 10 mg/mL (1 %) injection 2 mg intradermal PRN Allergies Allergies Allergen Reactions ??? Amoxicillin Other (See Comments) and Rash Red rash ??? Sulfa (Sulfonamide Antibiotics) Hives Light lavender rash Review of Systems A ten point review of systems was performed and was negative except for pertinent positives noted in the HPI Objective/Physical Exam: VS: BP 141/82 (BP Cuff Location: Left arm) Temp 36.2 ??C (97.2 ??F) (Oral) Resp 16 Ht 156.2 cm (61.5) Wt 64 kg (141 lb 1.5 oz) SpO2 100% BMI 26.23 kg/m?? Pain: Weight: Blood pressure 141/82, temperature 36.2 ??C (97.2 ??F), temperature source Oral, resp. rate16, height 156.2 cm (61.5), weight 64 kg (141 lb 1.5 oz), SpO2 100 %. Body mass index is 26.23 kg/m??. General Appearance: alert, cooperative, no distress, appears stated age, oriented Neck: no pain with ROM and no Cervial Spine tenderness Heart: S1, S2 normal Lungs: clear to auscultation bilaterally Extremities: extremities warm, atraumatic, no cyanosis or edema Skin: Void of injury, ecchymoses and infection. Presence of soft tumor (? Lipoma) of left upper back. Lymphatic: No abnormally enlarged lymph nodes. Data Review: Labs: Other Studies: Problems: (update problem list daily as appropriate) Patient Active Problem List Diagnosis Date Noted ??? Osteopenia 05/23/2019 Priority: Medium ??? Encounter for palliative care 10/03/2017 Priority: Medium ??? Malignant neoplasm of female breast (HCC-CMS) 07/07/2017 Priority: Medium ??? Metastatic breast cancer (HCC-CMS) 11/18/2016 Priority: Medium ??? Breast lump 10/21/2016 Priority: Medium ??? Trigger thumb of left hand 05/21/2013 Priority: Medium ??? Personal history of malignant neoplasm of breast 02/25/2012 Priority: Medium ??? (H)S/P breast reconstruction, right 06/19/2019 Added automatically from request for surgery [id number] ??? (H)Lipoma of back 06/19/2019 Added automatically from request for surgery [id number] ??? Plantar fat pad atrophy 02/14/2014 Left heel ??? Plantar fasciitis of left foot 03/14/2013 ??? Unstable right ankle 03/14/2013 ??? Hallux rigidus of right foot 03/14/2013 ??? Acquired absence of breast and nipple 09/16/2011 ??? Lumbar radicular syndrome 01/18/2011 ??? Acquired spondylolisthesis 01/18/2011 ??? Lumbosacral spondylosis without myelopathy 01/18/2011 ??? Menopausal and postmenopausal disorder 09/26/2009 ICD10 Update Auto Replacement ??? Encounter for routine gynecological examination 09/26/2009 ICD10 Update Auto Replacement ??? Premature ovarian failure 09/12/2009 ??? Herpes simplex type 2 infection 09/12/2009 ??? Papanicolaou smear of cervix with low grade squamous intraepithelial lesion (LGSIL) 03/11/2009 Assessment: Sunshine Pleitez is a 60 y.o. female with otherwise unremarkable history and physical exam. Plan: To OR as planned. The patient is currently taking the following anticoagulants: none The plan for perioperative management is: multi modal DVT Prophylaxis: Seqential Compression Device Karen Singh PA-C 09/08/2020 15:43 documented in this encounter OR Notes * OR Surgeon - Tylor Boss MD FACS - 09/08/2020 193 EDT Operative Note Date: 09/08/2020 Location: OR Name: Sunshine Pleitez, : 1960, Diagnosis Pre-op Diagnosis * S/P breast reconstruction, right [Z98.890] * Lipoma of back [D17.1] @ORDXCODE@ Procedures @ORPXDXCPT@ @ORDBLINK(ORL,9780,,17,4)@ Surgeons * Tylor Boss MD FACS - Primary * Karen Singh PA-C - Assisting * Mati Barcenas MD - Resident - Assisting PREOPERATIVE DIAGNOSIS: 1. Status post right breast reconstruction 2. Left Back Lipoma POSTOPERATIVE DIAGNOSIS: 1. Status post right breast reconstruction 2. Left Back Lipoma PROCEDURE : 1. Right reconstructed nipple revision with allograft augmentation. 2. Revision of right reconstructed breast lateral dogear. 2. Excision of lipoma with SURGEON: Dr. Tylor Boss MD, FACS MAT WEAVER: Karen Singh PA-C Physician Senior Interaction Designer Attestation: Ms. Singh's assistance was a necessary and integral participant in the case and present for the entirety of the case. She served to provide aid in exposure, hemostasis, closure and other intraoperative technical functions that helped me carry out a safe operation with optimal results for the patient.) There is no plastic surgery training program at the [facility] and as such there was no qualified resident available to assist. ANESTHESIA: General endotracheal INDICATIONS: Please see office dictation. Briefly, Sunshine Pleitez is a 60 y.o. female who is here for revision of her right reconstructed breast including augmentation of the nipple and revision of the right lateral dogear. The patient also has a lipoma of her left back that she would like removed as it is slowly growing. This is been removed twice previously by other surgeons. Risk and benefits of both procedures have been discussed preoperatively. Patient understands the risk to include but not be limited to infection, bleeding, wound formation, loss of allograft, loss of projection, incomplete excision of the lipoma with possible recurrence, contour irregularity, scar formation and possible need for further surgery. Signed informed consent is on the chart. NARRATIVE: The patient was seen preoperatively and marked accordingly by me. Stage I of the WHO checklist was appropriately completed. The patient was then taken to the operative suite and kept supine on the stretcher. Sequential compression devices were placed. Preoperative antibiotics were given.After general endotracheal anesthia was induced without incident. The patient was rolled prone ontosilicone rolls. Careful attention was paid to proper padding. She was then prepped with ChloraPrep and draped in standard sterile manner. Stage II the WHO checklist was appropriately completed. The lipoma was then addressed by excising the more lateral of the 2 previous scars. This was directly over the lipoma and mostly oriented along the resting lines of skin tension. The scar was sharply excised and dissection was carried down through the Andres's equivalent to the lipoma. Using blunt dissection I then dissected out the lipoma. An arterial blood supply was identified and cauterized. This was removed segmentally as it fractured with traction. When all of the obvious lipoma was removed thespecimen was passed off and sent for permanent pathology. The surrounding tissue was then mobilizedand closed in 3 layers with 3-0 Monocryl in the Andres's equivalent and the deep dermis followed bya 4-0 Monocryl running subcuticular suture. The dogear was sharply excised in a lenticular pattern.The underlying fat was excised. This extended through the Andres's fascia equivalent. This too was closed in 3 layers with 3-0 Monocryl in the Andres's equivalent and the deep dermis followed by a 4-0 Monocryl running subcuticular suture. Benzoin and 1 sterile paper tape dressings were placed. Patient was then rolled from prone to supine. She was prepped with ChloraPrep and draped in standard sterile manner. The right reconstructed nipple was opened through the existing scar medially. A sheet of 2 x 4 cm AlloDerm was appropriately rehydrated and a 2 bath system. This was then halved lengthwise and rolled tightly. 5-0 plain gut was placed through the roll to maintain the shape. I then slid this through the incision up into the nipple. The nipple was then closed with buried interrupted 5-0 Monocryl and 5-0 gut suture. This was then dressed with Dermabond and a perforated nipple shield wasplaced. Sterile absorbent dressings were placed as was a postoperative bra. At the end of the case all appropriate needle instrument and sponge counts were correct. The postoperative brief noted no deficiencies and the third stage of the WHO checklist was completed appropriately. The patient was awakened extubated and transferred recovery room in stable condition. * Preprocedure Instructions - Yovana Del Real, BRAULIO - 05/14/2020 1143 EST COVID 19 Screening Perioperative at time of PAT Please document by exception (only check those that apply). Have you had any of the following symptoms recently?No Yes Chronic ? Cough Shortness of breath or difficulty breathing Fever Chills Fatigue Muscle or body aches Severe Headache New loss of taste or smell Sore throat Congestion or runny nose Rash Nausea, vomiting, or diarrhea (rare in adults. More common in children) Please elaborate if yes: If a chronic symptom is reported use your judgement if an anesthesia review is needed. Have you been in close contact with someone who has been diagnosed with Covid 19?no (close contact, within 6 feet of any person known to have Coronavirus in the past 14 days) If past COVID + test results in chart: ??? Complete call, Place for Anesthesia Review ??? Do not give COVID+ DOS arrival instructions unless anes review deems necessary Negative COVID screen: Please file negative COVID screening under a progress note Negative screening is no symptoms or patient reporting a chronic symptom that does not need an anesthesia review Positive COVID screen: Patient answers yes to the question(s) and it is not a chronic symptom RN to flag this chart for anesthesia review and complete call Please file positive COVID screening under a PAT note If patient develops any of these symptoms between now and their surgery date instruct them to call us back at [phone] to report symptoms (If patient is in Surgical Admissions and answers yes, please notify Surgery and Anesthesia team). Follow proper precautions- yellow mask to patient/family. Visitor Policy: -IP or OP PeriOp visitors: ??? One non sick visitor may accompany patient to surgical wait area ??? No visitors to PreOp or PACU o Exceptions: special needs and pediatrics ??? Support person can remain with the patient until they are called to Preop ??? The support person has the choice to leave at that time and get a phone update from the surgeonor remain in the surgical waiting area for an in person update from the surgeon in one of our consult rooms ??? Once they have been updated by the surgeon, they may exit the building for inpatients. Outpatient visitor can wait in the surgical wait area until patient is ready for discharge. -IP: Inpatient unit: ??? No visitors at this time -Pediatric patient: ??? One parent can come with child DOS, and is allowed with child in PreOp/PACU ??? Due to COVID 19 no parents are allowed to go back to OR. ??? Pediatric inpatients: one caregiver at bedside and one overnight -Children under age of 16 y.o. are not permitted. -Only ADA service animals are permitted into the hospital. All other animals, including previously approved therapy/support animals, are not allowed at this time. (No animals will be allowed into Preop, OR, or PACU) Pt ahs covid test scheduled for 05/19/2020 at [facility]. Aware to self isolate after her test. YOVANA DEL REAL APRN * Preprocedure Instructions - Yovana Del Real CNM - 05/14/2020 1139 EST Sunshine Pleitez has been instructed as follows regarding medication administration for the day of the scheduled procedure. Date of Surgery: 05/26/2020 Instructions for Taking Medications Day of Surgery Medication Sig Last Dose Hold DOS Take DOS abemaciclib 150 mg tablet Take 150 mg by mouth every 12 hours. Pt will check with provider acetaminophen (TYLENOL) 325 mg tablet Take 2 tablets by mouth every 4 hours as needed for Pain. calcium-vitamin D (OS-CHAR D) 500 mg(1,250mg) -200 unit per tablet Take 1 Tab by mouth 2 times dailywith breakfast and dinner. 05/19/2020 yes DOXYLAMINE SUCCINATE (UNISOM ORAL) Take by mouth as needed. Takes half a tablet Yes gabapentin (NEURONTIN) 100 mg capsule Take 2 Caps by mouth 2 times daily. Patient taking differently: Take 600 mg by mouth 2 times daily. Takes 300 mg qam and pm and 600 mg qhs Yes ibuprofen (MOTRIN) 200 mg tablet Take 400 mg by mouth as needed. 05/18/2020 yes MULTIVITS W-CA,FE,OTHER MIN (WOMEN'S DAILY FORMULA ORAL) Take by mouth daily. 05/19/2020 yes mv-mn/C/glutamin/lysin/[id number] (AIRBORNE, ASCORBATE SODIUM, ORAL) Take by mouth as needed. 05/19/2020 yes omeprazole (PRILOSEC) 20 mg capsule Take 20 mg by mouth daily. Yes ondansetron (ZOFRAN-ODT) 4 mg disintegrating tablet Take 1 Tab by mouth every 8 hours as needed forNausea. Patient not taking: Reported on 07/11/2019 RED YEAST RICE EXTRACT ORAL Take 1,200 mg by mouth daily. 600mg 2x a day 05/19/2020 yes valACYclovir (VALTREX) 500 mg tablet Take 1 Tab by mouth daily. nottaking venlafaxine (EFFEXOR-XR) 150 mg XR capsule Take 1 Cap by mouth daily. Yes zolpidem (AMBIEN) 5 mg tablet Take 5 mg by mouth at bedtime as needed for Sleep. Reported on 11/01/2016 Yes Pt aware and will withold NSAIDS and vitamins and minerals for 7 days prior to surgery. YOVANA DEL REAL APRN documented in this encounter Plan of Treatment Upcoming Encounters Date Type Department Care Team (Late st Contact Info) Description 04/02/2024 10:30 EDT Appointment [facility] Interventional Radiology Unit [address] [place] [phone] 04/02/2024 15:15 EDT Office Visit [facility] Surgical Oncology - [facility] [address], [place] [phone] Adolfo Carreno MD [address] [facility], Level [address] [place] [phone] 04/05/2024 9:30 EDT Telemedicine [facility] - [facility] Palliative Care Services [address], [place] [phone] Chichi Woods MD 111 [facility], [address] [phone] 04/11/2024 15:00 EDT Telemedicine [facility] Hematology & Oncology - [address] [phone] Alisson Carreon MD [address] [place] [address] 2 [place] [phone] 04/13/2024 13:30 EDT Appointment [facility] Hematology & Oncology - [address] [phone] 04/13/2024 14:00 EDT Appointment [facility] Hematology & Oncology - [address] [phone] 04/16/2024 10:00 EST Telemedicine [facility] - [facility] Palliative Care Services [address] [place] [address] [phone] Chichi Woods MD [address] [place] [phone] 04/24/2024 9:00 EST Appointment [facility] Radiology CT Outpatient - [address] [id number] 04/24/2024 11:00 EST Appointment [facility] Breast Imaging - [address] [phone] 04/27/2024 12:00 EST Appointment [facility] Hematology & Oncology - [address] [id number] 05/02/2024 15:00 EST Telemedicine [facility] Hematology & Oncology - [address] [phone] Alisson Carreon MD [address] [place] [address], [facility] [address] [place] [phone] 05/04/2024 10:15 EST Ancillary Procedure [facility] Cardiology [place] [place] [address] 05/04/2024 11:30 EST Appointment [facility] Hematology & Oncology [address] [id number] 05/04/2024 12:00 EST Appointment [facility] Hematology & Oncology [address] [address] 06/12/2024 13:00 EST Appointment [facility] Radiology CT [address] [address] Scheduled Referrals Name Type Priority Associated Diagnoses Order Schedule PROVIDER FOLLOW-UP INSTRUCTIONS Outpatient Referral Routine Ordered: 09/08/2020 PROVIDER FOLLOW-UP INSTRUCTIONS Outpatient Referral Routine Ordered: 09/08/2020 documented as of this encounter Procedures Procedure Name Priority Date/Time Associated Diagnosis Comments SURGICAL PATHOLOGY Routine 09/08/2020 16 :46 EDT INSERTION, BIOLOGIC IMPLANT, FOR SOFT TISSUE REINFORCEMENT 09/08/2020 15:55 EDT S/P breast reconstruction, right Lipoma of back Special Needs Alloderm: 2x4 medium thickness x2 NIPPLE, AREOLA RECONSTRUCTION UNILATERAL 09/08/2020 15:55 EDT S/P breast reconstruction, right Lipoma of back Special Needs Alloderm: 2x4 medium thickness x2 EXCISION, LESION, BENIGN, BACK, GREATER THAN 4.0 CM IN DIAMETER 09/08/2020 15:55 EDT S/P breast reconstruction, right Lipoma of back Special Needs Alloderm: 2x4 medium thickness x2 REVISION, RECONSTRUCTION, BREAST, UNILATERAL 09/08/2020 15:55 EDT S/P breast reconstruction, right Lipoma of back Special Needs Alloderm: 2x4 medium thickness x2 documented in this encounter Results * SURGICAL PATHOLOGY (09/08/2020 16:46 EDT) Final Diagnosis A. SOFT TISSUE, BACK, RIGHT UPPER, DOG EAR, EXCISION: - Skin with scar and subcutaneous mature adipose tissue. B. SOFT TISSUE, BACK, LEFT UPPER, PREVIOUS SURGERY SCAR OF RECURRENT LIPOMA, EXCSION: - Skin with scar and subcutaneous mature adipose tissue. C. SOFT TISSUE, BACK, LEFT UPPER, RECURRENT LIPOMA, EXCISION: - Mature adipose tissue, consistent with lipoma. 09/12/2020 10:30 [facility] Attestation There was significant resident/fellow involvement in the diagnostic evaluation of this case. By the signature below, the attending physician certifies that they have personally conducted a gross and/or microscopic examination of the described specimens and rendered or confirmed the above diagnosis. 09/12/2020 10:30 [facility] at 1030 Clinical History S/P breast reconstruction, right; lipoma of back 09/12/2020 10:30 [facility] Gross Description A. Received in normal saline labelled with proper patient identification (initials O, K) and dog ear of right posterior upper back is an unoriented elliptical excision of moura wrinkled skin (5.3 x 2.1 cm, excised to a depth of 1.1 cm). There is a white well-healed linear scar (1.6 x 0.2 cm) at one aspect of the skin surface that extends centrally. The central skin surface is slightly raised. No lesions are present on the skin surface. The margins are inked blue. Sectioning reveals yellow-white unremarkable cut surfaces. Corner Cutter sections are submitted in A1. B. Received in normal saline labelled with proper patient identification (initials O, K) and previous surgery scar of recurrent lipoma left upper back is an unoriented elliptical excision of moura skin (5.7 x 0.5 cm, excised to a maximum depth of 0.7 cm). The majority of the skin surface is covered by an ill-defined white-moura well-healed linear scar. Sectioning reveals yellow-white unremarkable cut surfaces. Corner Cutter sections are submitted in B1. C. Received normal saline labelled with proper patient identification (initials O, K) and recurrent lipoma of left upper back is an aggregate of yellow lobulated adipose tissue (18.6 g, 7.8 x 4.1 x 1.7 cm). Some of the tissues are partially encapsulated by white-hanks, thin, semi translucent membranes. There are areas of attached white-hanks fibroconnective tissue and the outer surfaces are focally hemorrhagic. Sectioning reveals yellow glistening cut surfaces with focal hemorrhagic areas but without necrosis. Corner Cutter sections (approximately 20% of the specimen) are submitted in C1-C4. TANK BEYER(ASCP) 09/10/2020 14:24 09/12/2020 10:30 EDT [facility] Resident/Junior w: Basilia Ramirez MD 09/12/2020 10:30 EDT [facility] Performing Lab [facility] 10:30 EDT [facility] Scanned Images 09/12/2020 10:30 EDT [facility] Tissue TISSUE SPECIMEN FROM SKIN / Unknown 09/08/2020 16:46 EDT 09/09/2020 8:23 EDT Tissue specimen (specimen) SPECIMEN FROM SKIN / Unknown 09/08/2020 16:47 EDT 09/09/2020 8:23 EDT Tissue specimen (specimen) SOFT TISSUE MASS / Unknown 09/08/2020 17:01 EDT 09/09/2020 8:31 EDT Tylor Boss MD FACS PATHOLOGY OR DERABLES [facility] [address] [place] [address] documented in this encounter Visit Diagnoses Diagnosis S/P breast reconstruction, right Breast replaced by other means Lipoma of back Lipoma of other specified sites S/P breast reconstruction, right Breast replaced by other means Lipoma of back Lipoma of other specified sites documented in this encounter Admitting Diagnoses Diagnosis S/P breast reconstruction, right Breast replaced by other means Lipoma of back Lipoma of other specified sites documented in this encounter Administered Medications Inactive Administered Medications - up to 3 most recent administrations Medication Order MAR Action Action Date Dose Rate Site atropine 0.1 mg/mL syringe 0.5 mg 0.5 mg, intravenous, PRN, Starting on Tue09/08/20 at 1754, Until Tue09/08/20 at 2135, Symptomatic HR < 50, Routine, Recovery (only) bupivacaine-EPINEPHrine (PF) 0.5 %-1:200,000 injection As needed, Starting on 09/08/20 at 1646, Until Tue09/08/20 at 1646, Routine, Intraprocedure Given 09/08/2020 16:46 EDT 20 mL diphenhydrAMINE (BENADRYL) injection 12.5 mg 12.5 mg, intravenous, PRN, 1 dose, Starting on Tue09/08/20 at 1754, Until Tue09/08/20 at 2134, nausea, Routine, Recovery (only) fentaNYL citrate (PF) injection 25-50 mcg 25-50 mcg, intravenous, EVERY 5 MIN PRN, Starting on Tue09/08/20 at 1754, Until Tue09/08/20 at 213, Pain, Routine, Recovery (only) lactated ringers (LR) infusion at 25 mL/hr, intravenous, CONTINUOUS, Starting on Tue09/08/20 at 1400, Until Tue09/08/20 at 213, Routine, Preprocedure Continued by Anesthesia 09/08/2020 16:05 EDT New Bag 09/08/2020 13:45 EDT 25 mL/hr lactated ringers (LR) infusion at 75 mL/hr, intravenous, CONTINUOUS, Starting on Tue09/08/20 at 1815, Until Tue09/08/20 at 2134, Routine, Recovery (only) Rate Documented 09/08/2020 18:27 EDT 75 mL/hr lidocaine (PF) 10 mg/mL (1 %) injection 2 mg 2 mg, intradermal, PRN, 4 doses, Starting on Tue09/08/20 at 1343, Until Tue09/08/20 at 1834, peripheral intravenous catheter placement, Routine, Preprocedure Given 09/08/2020 13:45 EDT 2 mg metoclopramide (REGLAN) injection 10 mg 10 mg, intravenous, PRN, 1 dose, Starting on Tue09/08/20 at 1754, Until Tue09/08/20 at 2134, Nausea, Routine, Recovery (only) naloxone (NARCAN) injection 0.2 mg 0.2 mg, intravenous, PRN, Starting on Tue09/08/20 at 1754, Until Tue09/08/20 at 213, Opioid Reversal, Routine, Recovery (only) ondansetron (PF) (ZOFRAN) injection 4 mg 4 mg, intravenous, PRN, 1 dose, Starting on Tue09/08/20 at 1754, Until Tue09/08/20 at 213, Nausea, Vomiting, Routine, Recovery (only) oxyCODONE (ROXICODONE) immediate release tablet 5-10 mg 5-10 mg, oral, EVERY 30 MINUTES PRN, 2 doses, Starting on Tue09/08/20 at 1754, Until Tue09/08/20 at 2135, Pain, Routine, Recovery (only) documented in this encounter Discontinued Medications Medication Sig Discontinue Reason Start Date End Da te letrozole (FEMARA) 2.5 mg tabletIndications:Personal history of malignant neoplasm of breast,Breast lump TAKE 1 TABLET DAILY 01/10/2020 05/14/2020 HYDROmorphone (DILAUDID) 2 mg tablet Take 1-2 Tabs by mouth every 4 hours as needed for Pain. Daily Max: 24 mg 05/30/2019 05/14/2020 abemaciclib 150 mg tabletIndications:Metastat ic breast cancer Take 150 mg by mouth every 12 hours. Therapy completed 06/16/2020 09/08/2020 diphenoxylate-atropine (LOMOTIL) 2.5-0.025 mg per tablet Take 2 tabs every 6 hours until control achieved, then take 2 tabs daily for maintenance. Therapy completed 06/19/2020 09/08/2020 ondansetron (ZOFRAN-ODT) 4 mg disintegrating tablet Take 1 Tab by mouth every 8 hours as needed for Nausea. Therapy completed 06/02/2019 09/08/2020 documented as of this encounter Active and Recently Administered Medications Times are shown in EDT. Scheduled Medication Order 09/06/2020 09/07/2020 09/08/2020 ceFAZolin (ANCEF) syringe 2 g (COMPLETED) 2 g, intravenous, Administer over 10 Minutes, PRE-OP ONCE, 1 dose, On Tue09/08/20 at 1630, Routine 1630 (Given - Provid er: ROSAMARIA Sainz) Continuous Medication Order 09/06/2020 09/07/2020 09/08/2020 lactated ringers (LR) infusion at 25 mL/hr, intravenous, CONTINUOUS, Starting on Tue09/08/20 at 1400, Until Tue09/08/20 at 2135, Routine, Preprocedure 1345 (New Bag - Prov ider: Caro Doshi RN)1605 (Continued by Anesthesia - Provider: ROSAMARIA Sainz)1833 (Completed - Provider: ROSAMARIA Sainz) lactated ringers (LR) infusion at 75 mL/hr, intravenous, CONTINUOUS, Starting on Tue09/08/20 at 1815, Until Tue09/08/20 at 2135, Routine, Recovery (only) 1827 (Rate Documente d - Provider: Tammi Herrmann RN)1853 (Completed - Provider: Tammi Herrmann RN) PRN Medication Order 09/06/2020 09/07/2020 09/08/2020 atropine 0.1 mg/mL syringe 0.5 mg 0.5 mg, intravenous, PRN, Starting on Tue09/08/20 at 1754, Until Tue09/08/20 at 2135, Symptomatic HR < 50, Routine, Recovery (only) bupivacaine-EPINEPHrine (PF) 0.5 %-1:200,000 injection (CANCELED) As needed, Starting on Tue09/08/20 at 1646, Until Tue09/08/20 at 1646, Routine, Intraprocedure 1646 (Given - Provid er: Tylor Boss MD [facility]) diphenhydrAMINE (BENADRYL) injection 12.5 mg 12.5 mg, intravenous, PRN, 1 dose, Starting on Tue09/08/20 at 1754, Until Tue09/08/20 at 2135, nausea, Routine, Recovery (only) fentaNYL citrate (PF) injection 25-50 mcg 25-50 mcg, intravenous, EVERY 5 MIN PRN, Starting on Tue09/08/20 at 1754, Until Tue09/08/20 at 2135, Pain, Routine, Recovery (only) lidocaine (PF) 10 mg/mL (1 %) injection 2 mg (CANCELED) 2 mg, intradermal, PRN, 4 doses, Starting on Tue09/08/20 at 1343, Until Tue09/08/20 at 1834, peripheral intravenous catheter placement, Routine, Preprocedure 1345 (Given - Provid er: Caro Doshi RN) metoclopramide (REGLAN) injection 10 mg 10 mg, intravenous, PRN, 1 dose, Starting on Tue09/08/20 at 1754, Until Tue09/08/20 at 2135, Nausea, Routine, Recovery (only) naloxone (NARCAN) injection 0.2 mg 0.2 mg, intravenous, PRN, Starting on Tue09/08/20 at 1754, Until Tue09/08/20 at 2135, Opioid Reversal, Routine, Recovery (only) ondansetron (PF) (ZOFRAN) injection 4 mg 4 mg, intravenous, PRN, 1 dose, Starting on Tue09/08/20 at 1754, Until Tue09/08/20 at 2135, Nausea, Vomiting, Routine, Recovery (only) oxyCODONE (ROXICODONE) immediate release tablet 5-10 mg 5-10 mg, oral, EVERY 30 MINUTES PRN, 2 doses, Starting on Tue09/08/20 at 1754, Until Tue09/08/20 at 2135, Pain, Routine, Recovery (only) documented in this encounter Orders Medications Ordered That Vj ht Not Have Been Administered Count Last Ordered Date First Ordered Date atropine 0.1 mg/mL syringe 0.5 mg 1 021 ceFAZolin (ANCEF) syringe 2 g 1 09/08/2020 diphenhydrAMINE (BENADRYL) i njection 12.5 mg 1 09/08/2020 fentaNYL citrate (PF) injection 25-50 mcg 1 09/08/2020 metoclopramide (REGLAN) injection 10 mg 1 0 09/08/2020 naloxone (NARCAN) injection 0.2 mg 1 2020 ondansetron (PF) (ZOFRAN) injection 4 mg 1 09/08/2020 oxyCODONE (ROXICODONE) immed iate release tablet 5-10 mg 1 09/08/2020 Diet Count Last Ordered Date First Orde red Date DISCHARGE DIET 1 09/08/2020 Nursing Count Last Ordered Date First Orde red Date ACTIVITY INSTRUCTIONS 1 09/08/2020 WOUND CARE INSTRUCTIONS 2 09/08/2020 Discharge Count Last Ordered Date First Orde red Date DISCHARGE PATIENT 1 09/08/2020 Legal Count Last Ordered Date First Orde red Date MISCELLANEOUS DISCHARGE INSTRUCTIONS 1 08/12 documented in this encounter Care Teams Building Services Supervisor Relationship Specialty Start Date End Date Linda Blancas MD [facility] [address] [place] [address] PCP - General 01/06/11 Adolfo Carreno MD [address] [place] [address], [facility] [address] [place] [phone] General Surgery 04/26/19 Augustina Colin MD PhD [address] [place] [address] 2 [place] [address] Medical Oncology 04/26/19 documented as of this encounter
--- OUTSIDE RECORDS SUMMARY | 2024-03-20 14:56 | XMS_ITS | Encounter Summary ---
Author Organization [facility] Address [address] [place] [address] Care Team Providers Care Rehab Office Coordinator Name Role Phone Linda Blancas MD Primary Care Provider [phone] Adolfo Carreno MD Unavailable [phone] Augustina Colin MD PhD Unavailable Unavailable Reason for Visit * Laboratory Services (Routine) - Order Cancelled Specialty Diagnoses / Procedures Referred By Doug hearn Referred To Contact Diagnoses Metastatic breast cancer Procedures COMPLETE BLOOD COUNT AND DIFFERENTIAL Augustina Colin MD PhD Referral ID Status Reason Start Date Expiration Date V isits Requested Visits Authorized [id number] Order Cancelled 03/13/2019 1 1 Encounter Details Date Type Department Care Team (Latest Contact Info) Description 09/03/2020 9:00 EDT Phlebotomy Only [facility] Hematology & Oncology - Main [place] [address] [place], [place] [phone] Blood Doctor, [facility] Hem Onc Metastatic breast cancer (HCC-CMS) [...] 9:53 EDT documented as of this encounter Functional [...] Progress Notes * Patricia Rodriguez MA - 09/03/2020 0900 EDT Venipuncture performed for Dittus Per orders of Dixie Number of attempts 1 right ac PC I was supervised by Dixie who was present and immediately available in the office suite. PATRICIA ORDRIGUEZ MA 09/03/2020 9:16 documented in this encounter Plan of Treatment Upcoming Encounters Date Type Department Care Team (Late st Contact Info) Description 04/02/2024 10:30 EDT Appointment [facility] Interventional Radiology Unit [address] [place] [address] [phone] 04/02/2024 15:15 EDT Office Visit [facility] Surgical Oncology - [address] [phone] Adolfo Carreno MD 111 [facility], Level 2 [place] [phone] 04/05/2024 9:30 EDT Telemedicine [facility] Palliative Care Services [address] [place] [address] [phone] Chichi Woods MD [address] [place] [phone] 04/11/2024 15:00 EDT Telemedicine [facility] Hematology & Oncology [address] [address] Alisson Carreon MD [address] [place] [address], [address] [place] [phone] 04/13/2024 13:30 EDT Appointment [facility] Hematology & Oncology [address] [phone] 04/13/2024 14:00 EDT Appointment [facility] Hematology & Oncology [address] [address] 04/16/2024 10:00 EST Telemedicine [facility] - [facility] Palliative Care Services [address] [place] [address] [phone] Chichi Woods MD [address] [place] [phone] 04/24/2024 9:00 EST Appointment [facility] Radiology CT Outpatient - [address] [id number] 04/24/2024 11:00 EST Appointment [facility] Breast Imaging - [address] [phone] 04/27/2024 12:00 EST Appointment [facility] Hematology & Oncology - [address] [phone] 05/02/2024 15:00 EST Telemedicine [facility] Hematology & Oncology - [address] [phone] Alisson Carreon MD 111 [facility], [facility], Level [address] [place] [phone] 05/04/2024 10:15 EST Ancillary Procedure [facility] Cardiology - [address] [place], [place] [phone] 05/04/2024 11:30 EST Appointment [facility] Hematology & Oncology - [address] [phone] 05/04/2024 12:00 EST Appointment [facility] Hematology & Oncology [address] [phone] 06/12/2024 13:00 EST Appointment [facility] Radiology CT - [facility] [address] [place], [place] [phone] documented as of this encounter Procedures Procedure Name Priority Date/Time Associated Diagnosis Comments COMPREHENSIVE METABOLIC PANEL (ONCOLOGY USE ONLY-INC MG) STAT 09/03/2020 9:12 EDT Metastatic breast cancer (HCC-CMS) COMPLETE BLOOD COUNT AND DIFFERENTIAL Routine 09/03/2020 9:12 EDT Metastatic breast cancer (HCC-CMS) documented in this encounter Results * (ABNORMAL) COMPREHENSIVE METABOLIC PANEL (ONCOLOGY USE ONLY-INC MG) (09/03/2020 9:12 EDT) Sodium 142 136 - 145 mEq/L 09/03/2020 9:41 EDT [facility] Potassium 4.1 3.5 - 5.0 mEq/L 09/03/2020 9:41 T [facility] Chloride 107 96 - 110 mEq/L 09/03/2020 9:41 T [facility] CO2 Total 30 22 - 32 mEq/L 09/03/2020 9:41 T [facility] Glucose 124(H) 70 - 100 mg/dL 09/03/2020 9:41 [facility] BUN 16 10 - 26 mg/dL 09/03/2020 9:41 [facility] Creatinine 0.56 0.52 - 1.04 mg/dL 09/03/2020 9:41 [facility] eGFR 102 >60 mL/min/1.7 3m2 09/03/2020 9:41 [facility] Comment:eGFR calculated gordo ureña CKD-EPI equation for non- Americans. Multiply eGFR by 1.16 for patients. Total Protein 6.5 6.3 - 8.2 g/dL 09/03/2020 9:41 [facility] Albumin 3.9 3.4 - 4.9 g/dL 09/03/2020 9:41 [facility] Alkaline Phosphatase 61 38 - 126 U/L 09/03/2020 9:41 [facility] AST 30 15 - 46 U/L 09/03/2020 9:41 [facility] ALT 24 <35 U/L 09/03/2020 9:41 [facility] Bilirubin, Total <0.5 <1.4 mg/dL 09/04/19 9:41 [facility] Calcium 8.7 8.5 - 10.5 mg/dL 09/03/2020 9:41 [facility] Calculated Calcium 8.8 8.5 - 10.5 mg/dL 09/03/2020 9:41 [facility] Magnesium 2.1 1.7 - 2.8 mg/dL 09/03/2020 9:41 [facility] Blood VENOUS BLOOD / Unknown Venipuncture / Unknown 09/03/2020 9:12 EDT 09/03/2020 9:22 EDT Augustina Colin MD PhD CHEMISTRY & BLOOD GA S ORDERABLES [facility] [address] [place] [address] * (ABNORMAL) COMPLETE BLOOD COUNT AND DIFFERENTIAL (09/03/2020 9:12 EDT) WBC 5.02 4.00 - 12.40 K/cmm 09/03/2020 9:28 [facility] RBC 3.71(L) 3.86 - 5.04 M/cmm 09/03/2020 9:28 [facility] Hemoglobin 12.3 11.6 - 15.2 gm/dL 09/03/2020 9:28 [facility] HCT 37.2 34.9 - 44.4 % 09/03/2020 9:28 [facility] MCV 100(H) 81 - 98 fl 09/03/2020 9:28 [facility] MCH 33.2 26.7 - 33.3 pg 09/03/2020 9:28 [facility] MCHC 33.1 32.1 - 35.9 gm/dL 09/03/2020 9:28 [facility] RDW-CV 11.4 <14.7 % 09/03/2020 9:28 [facility] RDW-SD 42.4 <50.4 fl 09/03/2020 9:28 [facility] PLT 223 141 - 377 K/cmm 09/03/2020 9:28 [facility] MPV 9.9 9.5 - 12.7 fl 09/03/2020 9:28 [facility] % Neutrophils 47.4 % 09/03/2020 9:28 [facility] % Lymphocytes 41.4 % 09/03/2020 9:28 [facility] % Monocytes 7.6 % 09/03/2020 9:28 [facility] % Eosinophils 2.8 % 09/03/2020 9:28 [facility] % Basophils 0.6 % 09/03/2020 9:28 [facility] % Immature Grans 0.2 % 09/04/19 9:28 [facility] Absolute Neutrophils 2.38 2.20 - 8.85 K/cmm 09/03/2020 9:28 EDT [facility] Absolute Lymphocytes 2.08 1.09 - 3.30 K/cmm 09/03/2020 9:28 EDT [facility] Absolute Monocytes 0.38 0.10 - 0.80 K/cmm 09/03/2020 9:28 EDT [facility] Absolute Eosinophils 0.14 0.03 - 0.61 K/cmm 09/03/2020 9:28 EDT [facility] ABS Basophils 0.03 0.01 - 0.11 K/cmm 09/03/2020 9:28 EDT [facility] Absolute Immature Grans 0.01 0.00 - 0.06 K/cm 09/03/2020 9:28 EDT [facility] Type of Differential: Auto 09/03/2020 9:28 EDT [facility] Blood VENOUS BLOOD / Unknown Venipuncture / Unknown 09/03/2020 9:12 EDT 09/03/2020 9:22 EDT Augustina Colin MD PhD PACKAGES & DNA PROBE ORDERABLES Performing Organization Address City/State/[facility] Co de Phone Number [facility] [address] [place] [address] documented in this encounter Visit Diagnoses Diagnosis Metastatic breast cancer- Primary documented in this encounter Care Teams Rehab Office Coordinator Relationship Specialty Start Date End Date Linda Blancas MD [facility] [address] [place] [address] PCP - General 01/06/11 Adolfo Carreno MD [address] [place] [phone] General Surgery 04/26/19 Augustina Colin MD PhD [address] [place] [phone] Medical Oncology 04/26/19 documented as of this encounter
--- OUTSIDE RECORDS SUMMARY | 2024-03-20 14:56 | XMS_ITS | Encounter Summary ---
Author Organization [facility] Address [address] [place] [address] Care Team Providers Care Job Coaching Name Role Phone Linda Blancas MD Primary Care Provider [phone] Adolfo Carreno MD Unavailable [phone] Augustina Colin MD PhD Unavailable Unavailable Encounter Details Date Type Department Care Team (Late st Contact Info) Description 09/03/2020 Orders Only [facility] Radiology - Main [place] [address] [place], [place] [address] Ewa Lockwood MD 111 [facility], [address] [place] [phone] Social History Tobacco Use Types [...] [facility] [address] [place] [address] 04/02/2024 15:15 EDT Office Visit [facility] Surgical Oncology - [facility] [address] [place], [place] [address] Adolfo Carreno MD [address] [place] [address] [address] [place] [phone] 04/05/2024 9:30 EDT Telemedicine [facility] - [facility] Palliative Care Services [address] [place] [address] Chichi Woods MD [address] [place] [address], [address] [phone] 04/11/2024 15:00 EDT Telemedicine [facility] Hematology & Oncology - [address] [phone] Alisson Carreon MD [address] [place] [address] [address] [place] [phone] 04/13/2024 13:30 EDT Appointment [facility] Hematology & Oncology - [address] [address] 04/13/2024 14:00 EDT Appointment [facility] Hematology & Oncology [address] [address] 04/16/2024 10:00 EST Telemedicine [facility] - [facility] Palliative Care Services [address] [place] [phone] Chichi Woods MD [address] [place] [address], [address] [phone] 04/24/2024 9:00 EST Appointment [facility] Radiology CT Outpatient - [address] [phone] 04/24/2024 11:00 EST Appointment [facility] Breast Imaging - [facility] [address] [place], [place] [address] 04/27/2024 12:00 EST Appointment [facility] Hematology & Oncology - [address] [phone] 05/02/2024 15:00 EST Telemedicine [facility] Hematology & Oncology [address] [phone] Alisson Carreon MD [address] [place] [address], [facility], Level [address] [place] [phone] 05/04/2024 10:15 EST Ancillary Procedure [facility] Cardiology [place] [place] [address] 05/04/2024 11:30 EST Appointment [facility] Hematology & Oncology - [address] [phone] 05/04/2024 12:00 EST Appointment [facility] Hematology & Oncology - [address] [phone] 06/12/2024 13:00 EST Appointment [facility] Radiology CT - [address] [phone] documented as of this encounter Visit Diagnoses Not on filedocumented in this encounter Care Teams Job Coaching Relationship Specialty Start Date End Date Linda Blancas MD [facility] [address] [place], [place] [address] PCP - General 01/06/11 Adolfo Carreno MD [address] [place] [phone] General Surgery 04/26/19 Augustina Colin MD PhD [address] [place] [address] 2 [place] [phone] Medical Oncology 04/26/19 documented as of this encounter
--- OUTSIDE RECORDS SUMMARY | 2024-03-20 14:56 | XMS_ITS | Encounter Summary ---
Author Organization [facility] Address [address] [place] [address] Care Team Providers Care Gis Developer Name Role Phone Linda Blancas MD Primary Care Provider [phone] Adolfo Carreno MD Unavailable [phone] Augustina Colin MD PhD Unavailable Unavailable Reason for Referral * Radiology Services (Routine) - Closed Specialty Diagnoses / Procedures Referred By [facility] Referred To Contact Nuclear Medicine Diagnoses Malignant neoplasm of right female breast, unspecified estrogen receptor status, unspecified site of breast ([facility]) Procedures NM BONE WHOLE BODY NM BONE SCAN 3 PHASE Augustina Colin MD PhD Referral ID Status Reason Start Date Expiration Date Visits Re quested Visits Authorized [id number] Closed 09/03/2020 1 1 * Radiology Services (Routine) - Closed Specialty Diagnoses / Procedures Referred By [facility] Referred To Contact Radiology Diagnoses Malignant neoplasm of right female breast, unspecified estrogen receptor status, unspecified site of breast ([facility]) Procedures MR ABDOMEN W WO Augustina Hollingsworth MD PhD Referral ID Status Reason Start Date Expiration Date Visits Re quested Visits Authorized [id number] Closed 11/05/2020 05/04/2021 1 1 * Radiology Services (Routine) - Closed Specialty Diagnoses / Procedures Referred By [facility] Referred To Contact Diagnoses Malignant neoplasm of right female breast, unspecified estrogen receptor status, unspecified site of breast ([facility]) Procedures CT CHEST W CONTRAST Augustina Colin MD PhD Referral ID Status Reason Start Date Expiration Date Visits Re quested Visits Authorized [id number] Closed 09/18/2020 03/17/2021 1 1 Reason for Visit * Reason Comments Follow-up Injections Encounter Details Date Type Department Care Team (Late st Contact Info) Description 09/03/2020 9:30 EDT Office Visit [facility] Hematology & Oncology - [address] [address] Augustina Colin MD PhD Malignant neoplasm of [...] Sign Reading Time Taken Comments Blood Pressure 148/67 09/03/2020 0918 EDT Pulse 80 09/03/2020 0918 EDT Temperature 36.5 ??C (97.7 ??F) 09/03/2020 0918 EDT Respiratory Rate 16 09/03/2020 0918 EDT Oxygen Saturation 100% 09/03/2020 0918 EDT Inhaled Oxygen Concentration - - Weight 64 kg (141 lb 1.6 oz) 09/03/2020 0918 EDT Height - - Body Mass Index 26.23 08/25/2020 1153 EDT documented in this encounter Functional Status [...] Progress Notes * Augustina Colin MD - 09/03/2020 5094 EDT REASON FOR OFFICE VISIT: ??Discussion of side effects related to anti estrogen therapy ? PROBLEM LIST: 1. 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 a. 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 ??1.9 cm tumor at time of surgery, well differentiated, with LVI present, and negative margins. ?? G. Biopsy left cervical LN 02/11/20 - consistent with metastatic adenocarcinoma consistent with breast primary H. Fulvestrant initiated 03/06/20; abemaciclib initiated 03/31/20 discontinued 06/01 due to diarrhea 2. ??Restaging scans: ?? - CT scan of the chest completed 08/11/20 Interval decrease in size of the left lower cervical lymph node since the prior examination, with no new or enlarging lesions in the chest; New, bilateral groundglass opacities in the lungs pneumonitis or signs and symptoms of infection and alveolar hemorrhage; Stable pulmonary nodules - MRI Abdomen 08/12/20: Interval disappearance of one of the previously described subcentimeter liverlesions, and decreased conspicuity of the left lobe lesion. Findings can be due to favorable response to therapy - Nuclear bone scan??08/11/20: New foci of increased radiotracer uptake in the proximal left femur, concerning for metastatic disease. Otherwise stable bone scan. 3. ??DCIS in 2004 at the age [...] related to faslodex and scan results. She has no pain in her left hip. She does have some overall general pain but has been working in the garden. She understands that the CT scan of the chest with the suggestion of pneumonitis likely represents her recent Covid infection. She is comfortable continuing with the Faslodex alone given the overall improvement in areas where she has metastatic cancer. ROS: A 10 point review of systems was obtained. Other than described in the subjective she has no concerns or issues. Medications Prior to Today's Visit Medication Sig ??? abemaciclib 150 mg tablet Take 150 mg by mouth every 12 hours. (Patient not taking: Reported on08/06/2020) ??? acetaminophen (TYLENOL) 325 mg tablet Take 2 tablets by mouth every 4 hours as needed for Pain. ??? calcium-vitamin D (OS-CHAR D) 500 mg(1,250mg) -200 unit per tablet Take 1 Tab by mouth 2 times daily with breakfast and dinner. ??? diphenoxylate-atropine (LOMOTIL) 2.5-0.025 mg per tablet Take 2 tabs every 6 hours until control achieved, then take 2 tabs daily for maintenance. (Patient not taking: Reported on 08/11/2020) ??? DOXYLAMINE SUCCINATE (UNISOM ORAL) Take by [...] FORMULA ORAL) Take by mouth daily. ??? mv-mn/C/glutamin/lysin/sifm397 (AIR[place]ORNE, ASCORBATE SODIUM, ORAL) Take by mouth as needed. ??? omeprazole (PRILOSEC) 20 mg capsule Take 20 mg by mouth daily. ??? ondansetron (ZOFRAN-ODT) 4 mg disintegrating tablet Take 1 Tab by mouth every 8 hours as neededfor Nausea. ??? RED YEAST RICE EXTRACT ORAL Take [...] alone. She continues to be active. She is enjoying the fall. Objective: There were no vitals taken for this visit. Estimated body mass index is 24.91 kg/m?? as calculated from the following: Height as of 08/25/20: 156.2 cm (61.5). Weight as of 08/25/20: 60.8 kg (134 lb). ECOG Performance Status: 0 General: Comfortable, cooperative and in no apparent distress NEURO: Alert and oriented x 3; Grossly neurologically intact DIAGNOSTIC DATA No visits with results within 1 Day(s) from this visit. Latest known visit with results is: Phlebotomy Only on 08/06/2020 Component Date Value Ref Range Status ??? Sodium 08/06/2020 141 136 - 145 mEq/L Final ??? Potassium 08/06/2020 4.2 3.5 - 5.0 mEq/L Final ??? Chloride 08/06/2020 103 96 - 110 mEq/L Final ??? CO2 Total 08/06/2020 27 22 - 32 mEq/L Final ??? Glucose 08/06/2020 70 70 - 100 mg/dL Final ??? BUN 08/06/2020 20 10 - 26 mg/dL Final ??? Creatinine 08/06/2020 0.78 0.52 - 1.04 mg/dL Final ? ? eGFR 08/06/2020 84 >60 mL/min/1.73m2 Final eGFR calculated using CKD-EPI equation for non- Americans. Multiply eGFR by 1.16 for AfricanAmerican patients. ??? Total Protein 08/06/2020 7.8 6.3 - 8.2 g/dL Final ??? Albumin 08/06/2020 4.7 3.4 - 4.9 g/dL Final ??? Alkaline Phosphatase 08/06/2020 70 38 - 126 U/L Final ??? AST 08/06/2020 41 15 - 46 U/L Final ? ? ALT 08/06/2020 28 <35 U/L Final ? ? Bilirubin, Total 08/06/2020 <0.5 <1.4 mg/dL Final ??? Calcium 08/06/2020 10.1 8.5 - 10.5 mg/dL Final ??? Calculated Calcium 08/06/2020 9.5 8.5 - 10.5 mg/dL Final ??? Magnesium 08/06/2020 2.1 1.7 - 2.8 mg/dL Final ASSESSMENT: ??Ms Bernstein is a 60-year-old female with metastatic breast cancer.?? She startedon fluvesterant fall with abemaciclib added in March 2020. She then discontinued abemaciclib a few months later due to significant diarrhea. Her staging scans indicated a mixed response. There appears to be a new lytic lesion but other bone lesions are stable. The liver abnormalities haveimproved which may indicate that they did represent metastatic disease. We will continue fluvesterant 500 mg monthly. Given that the only area of progression was a small lesion in the left proximal femur and the fact that she was off Faslodex for a period of time while she was in [place] we will continue with Faslodex alone. We will get short interval scans and consider adding palbociclib if she has progression. Abemaciclib was associated with significant diarrhea. She is also due for q 6mo zolendronic acid and will receive it today. She takes a vitamin D supplement and we have encouraged weight bearing exercise. PLAN: 1. Faslodex 500mg today and monthly 2. Zoledronic acid next due January 2021 3. Consider restaging scans November 2020 4.??Continued follow-up with Dr. Carreno and Dr Boss 5. FUR 3 mo ?? Patient is encouraged call with any intercurrent concerns or problems. documented in this encounter Plan of Treatment Upcoming Encounters Date Type Department Care Team (Late st Contact Info) Description 04/02/2024 10:30 EDT Appointment [facility] [address] [place] [address] [phone] 04/02/2024 15:15 EDT Office Visit [facility] Surgical Oncology - [address] [phone] Adolfo Carreno MD [address] [place] [address] [phone] 04/05/2024 9:30 EDT Telemedicine [facility] Palliative Care Services [address] [place] [address] [phone] Chichi Woods MD [address] [place] [address] [phone] 04/11/2024 15:00 EDT Telemedicine [facility] Hematology & Oncology - [address] [phone] Alisson Carreon MD [address] [place] [address] [phone] 04/13/2024 13:30 EDT Appointment [facility] Hematology & Oncology [address] [phone] 04/13/2024 14:00 EDT Appointment [facility] Hematology & Oncology [address] [phone] 04/16/2024 10:00 EST Telemedicine [facility] Palliative Care Services [address] [place] [address] [phone] Chichi Woods MD [address] [place] [address] [phone] 04/24/2024 9:00 EST Appointment [facility] Radiology CT Outpatient - [address] [id number] 04/24/2024 11:00 EST Appointment [facility] - [facility] [address] [place] [address] [place], [place] 642481 04/27/2024 12:00 EST Appointment [facility] Hematology & Oncology - [address] [phone] 05/02/2024 15:00 EST Telemedicine [facility] Hematology & Oncology [address] [phone] Alisson Carreon MD [address] [place] [address], Level [address] [place] [phone] 05/04/2024 10:15 EST Ancillary Procedure [facility] - [address] [place] [address] 05/04/2024 11:30 EST Appointment [facility] Hematology & Oncology [address] [phone] 05/04/2024 12:00 EST Appointment [facility] Hematology & Oncology [address] [phone] 06/12/2024 13:00 EST Appointment [facility] Radiology CT - [address] [id number] documented as of this encounter Results * [...] Colin MD PhD IMG NM ORDERABLES * MR ABDOMEN W WO CONTRAST (11/24/2020 12:00 EDT) Anatomical Region Laterality Modality Body, Abdomen Magnetic Resonan ce 11/24/2020 14:1 1 EDT Impressions 11/24/2020 14:11 EDT 1. New subcentimeter diffusion restricting hypoenhancing liver lesions consistent with recurrent metastatic disease Narrative 11/24/2020 14:11 EDT MR ABDOMEN W WO CONTRAST ??11/24/2020 11:00 AM Signs and Symptoms/Comments: ?? Complex Patient Condition - See Comments Technique: Ck-azc-xyt-of-phase, T2-weighted, diffusion weighted images were followed by [...] signal abnormality Localizer: Buttocks granulomas. Procedure Note Jie, Pavan Chi, MD - 11/24/2020 MR ABDOMEN W WO CONTRAST 11/24/2020 11:00 AM Signs and Symptoms/Comments: Complex Patient Condition - See Comments Technique: Cp-nfe-mok-of-phase, T2-weighted, diffusion weighted images were followedby dynamic [...] Colin MD PhD IMG MRI ORDERABLES * CT CHEST W CONTRAST (11/24/2020 10:47 [...] 021 documented in this encounter Care Teams Gis Developer Relationship Specialty Start Date End Date Linda Blancas MD [facility] [address] [place] [address] PCP - General 01/06/11 Adolfo Carreno MD [address] [place] [address] 2 [place] [phone] General Surgery 04/26/19 Augustina Colin MD PhD [address] [place] [phone] Medical Oncology 04/26/19 documented as of this encounter
--- OUTSIDE RECORDS SUMMARY | 2024-03-20 14:56 | XMS_ITS | Encounter Summary ---
Author Organization [facility] Address [address] [place] [address] Care Team Providers Care Geophysical Drafter Name Role Phone Linda Blancas MD Primary Care Provider [phone] Adolfo Carreno MD Unavailable [phone] Augustina Colin MD PhD Unavailable Unavailable Encounter Details Date Type Department Care Team (Late st Contact Info) Description 09/04/2020 Orders Only [facility] Radiology - Main [place] [address] [place] [address] Lois Gastelum MD [address] [place] [phone] Social History Tobacco Use Types Packs/Day Years [...] Description 04/02/2024 10:30 EDT Appointment [facility] Interventional Radiology Unit [address] [place], [place] [phone] 04/02/2024 15:15 EDT Office Visit [facility] Surgical Oncology - [address] [phone] Adolfo Carreno MD [address] [place] [address] 2 [place] [phone] 04/05/2024 9:30 EDT Telemedicine [facility] - [facility] Palliative Care Services [address] [place], [place] [phone] Chichi Woods MD [address] [place] [address], [address] [phone] 04/11/2024 15:00 EDT Telemedicine [facility] Hematology & Oncology - [address] [phone] Alisson Carreon MD [address] [place] [address] 2 [place] [phone] 04/13/2024 13:30 EDT Appointment [facility] Hematology & Oncology - [address] [phone] 04/13/2024 14:00 EDT Appointment [facility] Hematology & Oncology - [address] [phone] 04/16/2024 10:00 EST Telemedicine [facility] Palliative Care Services [address] [place] [address] [phone] Chichi Woods MD [address] [place] [address] [phone] 04/24/2024 9:00 EST Appointment [facility] Radiology CT Outpatient - [address] [address] 04/24/2024 11:00 EST Appointment [facility] Breast Imaging - [facility] S [address] [id number] 04/27/2024 12:00 EST Appointment [facility] Hematology & Oncology - [address] [phone] 05/02/2024 15:00 EST Telemedicine [facility] Hematology & Oncology [address] [phone] Alisson Carreon MD [address] [place] [address], [facility] [address] [place] [phone] 05/04/2024 10:15 EST Ancillary Procedure [facility] Cardiology [place] [place] [address] 05/04/2024 11:30 EST Appointment [facility] Hematology & Oncology - [address] [id number] 05/04/2024 12:00 EST Appointment [facility] Hematology & Oncology [address] [address] 06/12/2024 13:00 [facility] Radiology CT - [address] [address] documented as of this encounter Visit Diagnoses Not on filedocumented in this encounter Care Teams Geophysical Drafter Relationship Specialty Start Date End Date Linda Blancas MD [facility] [address] [place] [address] PCP - General 01/06/11 Adolfo Carreno MD [address] [place] [address] [phone] General Surgery 04/26/19 Augustina Colin MD PhD [address] [place] [address] 2 [place] [phone] Medical Oncology 04/26/19 documented as of this encounter
--- OUTSIDE RECORDS SUMMARY | 2024-03-20 14:56 | XMS_ITS | Encounter Summary ---
Author Organization [facility] Address [address] [place] [address] Care Team Providers Care Circus Supervisor Name Role Phone Linda Blancas MD Primary Care Provider [phone] Adolfo Carreno MD Unavailable [phone] Augustina Colin MD PhD Unavailable Unavailable Encounter Details Date Type Department Care Team (Late st Contact Info) Description 09/01/2020 Orders Only [facility] Hematology & Oncology - [facility] [address] [place] [address] Augustina Colin, PhD Social History Tobacco Use [...] Description 04/02/2024 10:30 EDT Appointment [facility] Interventional Radiology Unit [address] [place] [address] [phone] 04/02/2024 15:15 EDT Office Visit [facility] Surgical Oncology - [address] [phone] Adolfo Carreno MD [address] [place] [address] 2 [place] [phone] 04/05/2024 9:[address] [facility] - [facility] Palliative Care Services [address] [place] [address] [phone] Chichi Woods MD [address] [place] [address], [address] [phone] 04/11/2024 15:00 EDT Telemedicine [facility] Hematology & Oncology [address] [phone] Alisson Carreon MD [address] [place] [address] 2 [place] [phone] 04/13/2024 13:30 EDT Appointment [facility] Hematology & Oncology [address] [address] 04/13/2024 14:00 EDT Appointment [facility] Hematology & Oncology - [address] [address] 04/16/2024 10:[address] [facility] - [facility] Palliative Care Services [address] [place] [address] Chichi Woods MD [address] [place] [address], [address] [phone] 04/24/2024 9:00 EST Appointment [facility] Radiology CT Outpatient - [address] [id number] 04/24/2024 11:00 EST Appointment [facility] Breast Imaging - [facility] S [address] [phone] 04/27/2024 12:00 EST Appointment [facility] Hematology & Oncology - [address] [phone] 05/02/2024 15:00 EST Telemedicine [facility] Hematology & Oncology - [address] [phone] Alisson Carreon MD [address] [place] [address], [facility] [address] [place] [phone] 05/04/2024 10:15 EST Ancillary Procedure [facility] Cardiology [place] [place] [address] 05/04/2024 11:30 EST Appointment [facility] Hematology & Oncology - [address] [address] 05/04/2024 12:00 EST Appointment [facility] Hematology & Oncology - [address] [phone] 06/12/2024 13:00 EST [facility] Rad[facility] - [address] [address] documented as of this encounter Visit Diagnoses Not on filedocumented in this encounter Care Teams Circus Supervisor Relationship Specialty Start Date End Date Linda Blancas MD [facility] [address] [place] [address] PCP - General 01/06/11 Adolfo Carreno MD [address] [place] [address] [phone] General Surgery 04/26/19 Augustina Colin MD PhD [address] [place] [phone] Medical Oncology 04/26/19 documented as of this encounter
--- OUTSIDE RECORDS SUMMARY | 2024-03-20 14:56 | XMS_ITS | Encounter Summary ---
Author Organization [facility] Address [address] [place] [address] Care Team Providers Care Counter Weigher Name Role Phone Linda Blancas MD Primary Care Provider [phone] Adolfo Carreno MD Unavailable [phone] Augustina Colin MD PhD Unavailable Unavailable Reason for Visit * Reason Comments Injections Encounter Details Date Type Department Care Team (Latest Contact Info) Description 10/02/2020 12:52 EDT - 10/02/2020 23:59 EDT Hospital Encounter [facility] Hematology & Oncology - [facility] [place] [address] [place] [address] Malignant neoplasm of right female breast, unspecified [...] have Coronavirus / COVID-19? No / Unsure 09/16/2020 11:02 EDT documented as of this encounter Last Filed Vital Signs Vital Sign Reading Time Taken Comments Blood Pressure 133/68 10/02/2020 1314 EDT Pulse 111 10/02/2020 1314 EDT Temperature 36.8 ??C (98.2 ??F) 10/02/2020 1314 EDT Respiratory Rate 16 10/02/2020 1314 EDT Oxygen Saturation 100% 10/02/2020 1314 EDT Inhaled Oxygen Concentration - - Weight 62.6 kg (137 lb 14.4 oz) 10/02/2020 1314 EDT Height 155.5 cm (5' 1.22) 10/02/2020 1314 EDT Body Mass Index 25.87 10/02/2020 1314 EDT documented in this encounter Functional Status [...] Tablets by mouth as needed. 12/07/2023 mv-mn/C/glutamin/lysin/ [id number] ([place], ASCORBATE SODIUM, ORAL) Take by mouth [...] documented in this encounter Progress Notes * Ivania Medrano RN - 10/02/2020 1300 EDT Sendy presents to clinic for Faslodex injection, Cycle 8 Day 1. Ok to be administered before lab results are in. Two 250mg vials given in bilateral buttocks. NO signs of bleeding or reaction. Bandaids applied. Patient has no questions about this regimen. I was supervised by Mike who was present and immediately available in the office suite. IVANIA MEDRANO RN 10/02/2020 13:36 documented in this encounter Miscellaneous Notes * Addendum Note - Nadeen Gonzalez - 10/02/2020 1300 EDTEncounter addended by: Nadeen Gonzalez on: 10/12/2020 11:37 Actions taken: Charge Capture section accepted documented in this encounter Plan of Treatment Upcoming Encounters Date Type Department Care Team (Late st Contact Info) Description 04/02/2024 10:30 EDT Appointment [facility] Interventional Radiology Unit [address] [place] [address] [phone] 04/02/2024 15:15 EDT Office Visit [facility] Surgical Oncology - [address] [phone] Adolfo Carreno MD [address] [place] [address] [phone] 04/05/2024 9:30 EDT Telemedicine [facility] Palliative Care Services [address] [place] [address] [phone] Chichi Woods MD [address] [place] [address] [phone] 04/11/2024 15:00 EDT Telemedicine [facility] Hematology & Oncology - [address] [phone] Alisson Carreon MD [address] [place] [address] [phone] 04/13/2024 13:30 EDT Appointment [facility] Hematology & Oncology [address] [phone] 04/13/2024 14:00 EDT Appointment [facility] Hematology & Oncology [address] [phone] 04/16/2024 10:00 EST Telemedicine [facility] Palliative Care Services [address] [place] [address] [phone] Chichi Woods MD [address] [place] [address] [phone] 04/24/2024 9:00 EST Appointment [facility] Radiology CT Outpatient - [address] [id number] 04/24/2024 11:00 EST Appointment [facility] Breast Imaging - [facility] [address] [place] [address] [place] [address] 04/27/2024 12:00 EST Appointment [facility] Hematology & Oncology - [address] [phone] 05/02/2024 15:00 EST Telemedicine [facility] Hematology & Oncology [address] [phone] Alisson Carreon MD [address] [place] [address], Level [address] [place] [phone] 05/04/2024 10:15 EST Ancillary Procedure [facility] Cardiology [place] [place] [address] 05/04/2024 11:30 EST Appointment [facility] Hematology & Oncology [address] [address] 05/04/2024 12:00 EST Appointment [facility] Hematology & Oncology [address] [phone] 06/12/2024 13:00 EST Appointment [facility] Radiology CT - [address] [phone] documented as of this encounter Visit Diagnoses Diagnosis Malignant neoplasm of right female breast, unspecified estrogen receptor status, unspecified site of breast (HCC-CMS)- Primary documented in this encounter Administered Medications Inactive Administered Medications - up to 3 most recent administrations Medication Order MAR Action Action Date Dose Rate Site fulvestrant (FASLODEX) injection 500 mg 500 mg, intramuscular, NOW X1, 1 dose, On Michelle 10/02/20 at 1330, Routine Given 10/02/2020 13:14 EDT 500 mg documented in this encounter Orders Appointment Requests Count Last Ordered Date Fi rst Ordered Date ONCBCN INJECTION APPOINTMENT REQUEST 1 09/12 documented in this encounter Care Teams Counter Weigher Relationship Specialty Start Date End Date Linda Blancas MD [facility] [address] [place] [address] PCP - General 01/06/11 Adolfo Carreno MD [address] [place] [address] [phone] General Surgery 04/26/19 Augustina oClin MD PhD [address] [place] [phone] Medical Oncology 04/26/19 documented as of this encounter
--- OUTSIDE RECORDS SUMMARY | 2024-03-20 14:56 | XMS_ITS | Encounter Summary ---
Author Organization [facility] Address [address] [place] [address] Care Team Providers Care Tax Preparer Name Role Phone Linda Blancas MD Primary Care Provider [phone] Adolfo Carreno MD Unavailable [phone] Augustina Colin MD PhD Unavailable Unavailable Encounter Details Date Type Department Care Team (Late st Contact Info) Description 09/05/2020 Orders Only [facility] Hematology & Oncology - [facility] [address] [place] [address] Hetal Tan, RN [address] [place] [address] Malignant neoplasm of right female breast, unspecified [...] [facility] Interventional Radiology Unit [address] [place] [address] [phone] 04/02/2024 15:15 EDT Office Visit [facility] Surgical Oncology - [address] [phone] Adolfo Carreno MD [address] [place] [address], [facility] [address] [place] [phone] 04/05/2024 9:30 EDT Telemedicine [facility] - [facility] Palliative Care Services [address], [place] [phone] Chichi Woods MD [address] [place] [address], [address] [phone] 04/11/2024 15:00 EDT Telemedicine [facility] Hematology & Oncology - [address] [phone] Alisson Carreon MD [address] [place] [address], [facility] [address] [place] [phone] 04/13/2024 13:30 EDT Appointment [facility] Hematology & Oncology - [address] [phone] 04/13/2024 14:00 EDT Appointment [facility] Hematology & Oncology - [address] [address] 04/16/2024 10:00 EST Telemedicine [facility] - [facility] Palliative Care Services [address] [place] [address] [phone] Chichi Woods MD [address] [place] [address] [phone] 04/24/2024 9:00 EST Appointment [facility] Radiology CT Outpatient - [address] [id number] 04/24/2024 11:00 EST Appointment [facility] Breast Imaging - [facility] [address] [phone] 04/27/2024 12:00 EST Appointment [facility] Hematology & Oncology - [address] [phone] 05/02/2024 15:00 EST Telemedicine [facility] Hematology & Oncology [address] [phone] Alisson Carreon MD [address] [place] [address], Level [address] [place] [phone] 05/04/2024 10:15 EST Ancillary Procedure [facility] Cardiology - [place] [address] 05/04/2024 11:30 EST Appointment [facility] Hematology & Oncology [address] [phone] 05/04/2024 12:00 EST Appointment [facility] Hematology & Oncology - [address] [address] 06/12/2024 13:00 EST [facility] Radiology [facility] - [address] [address] documented as of this encounter Visit Diagnoses Diagnosis Malignant neoplasm of right female breast, unspecified estrogen receptor status, unspecified site of breast ([facility])- Primary documented in this encounter Orders Appointment Requests Count Last Ordered Date Fi rst Ordered Date ONCBCN INJECTION APPOINTMENT REQUEST 1 11/11 documented in this encounter Care Teams Tax Preparer Relationship Specialty Start Date End Date Linda Blancas MD [facility] [address] [place] [address] PCP - General 01/06/11 Adolfo Carreno MD [address] [place] [address] 2 [place] [phone] General Surgery 04/26/19 Augustina Colin MD PhD [address] [place] [address] 2 [place] [phone] Medical Oncology 04/26/19 documented as of this encounter
--- OUTSIDE RECORDS SUMMARY | 2024-03-20 14:56 | XMS_ITS | Encounter Summary ---
Author Organization [facility] Address [address] [place] [address] Care Team Providers Care Construction Carpenter Name Role Phone Linda Blancas MD Primary Care Provider [phone] Adolfo Carreno MD Unavailable [phone] Augustina Colin MD PhD Unavailable Unavailable Reason for Visit * Auth/Cert Specialty Diagnoses / Procedures Referred By Doug hearn Referred To Contact Diagnoses S/P breast reconstruction, right Lipoma of back Procedures ID REVISE BREAST RECONSTRUCTION ID EXC SKIN BENIG >4 CM TRUNK,ARM,LEG ID NIPPLE/AREOLA RECONSTRUCTION right back dog ear revision, left shoulder lipoma, right nipple reconstruction EXC, BENIGN LESION, BACK 4.0 CM NIPPLE/AREOLA RECONSTRUCTION UNILATERAL Referral ID Status Reason Start Date Expiration Date Visits Re quested Visits Authorized [id number] 07/02/2020 1 1 Encounter Details Date Type Department Care Team (Late st Contact Info) Description 09/08/2020 16:05 EDT Anesthesia Event [facility] [place] [facility] [address] [place], [place] [id number] [facility] [address] [facility], Level [address] [place] [address] Anesthesia Record Procedure Summary Procedure Name Responsible Anesthesiologist Anesthesia Start Time Anesthesia Stop Time excision of right lateral chest dog ear, excision of left back lipoma, right nipple revision with allograft (Right: Breast) Mustapha Martinez MD 09/08/20 1605 09/08/20 1833 Events Date Time Event Comment 09/08/2020 1605 An Start The patient was re-evaluated immediately before moderate or deep sedation use, before anesthesia induction, or before the anesthesia procedure. 1605 An Start Data 1614 An Induction The patient was reevaluated immediately before moderate or deep sedation use and before anesthesia induction. 1618 An Intubation 1626 Anesthesia Ready 1807 An Extubation 1825 an stop data 1833 Handoff to RN I completed my handoff to the receiving nurse during which we: 1. Identified the patient 2. Identified the responsible provider 3. Reviewed the pertinent medical history 4. Discussed the surgical course 5. Reviewed intra-op anesthesia management and issues during anesthesia 6. Set expectations for post-procedure period 7. Allowed opportunity for questions and acknowledgement of understanding. 183 An Stop Meds Name Total dexaMETHasone 4 mg/mL injection 8 mg fentanyl citrate (PF) injection 100 mcg lidocaine 2% (PF) injection glass vial 6 0 mg ketAMINE 5 mL prefilled syringe 20 mg midazolam 1 mg/mL 2 mL vial 2 mg ondansetron (PF) (ZOFRAN) injection 4 mg propOFol (DIPRIVAN) injection 230 mg propofol (DIPRIVAN) 500 mg in 50 mL infu addie 811,520 mcg rocuronium 10 mg/mL vial 50 mg sugammadex 100 mg/mL 2 mL vial 200 mg dexmedetomidine injection - vial 20 mcg ceFAZolin (ANCEF) syringe 2 g 2 g scopolamine 1.5 mg/72 hr patch 1 Patch ketOROLAC injection 30 mg lactated ringers (LR) infusion 900 mL * Agents Name O2 N2O Air * Blood No blood administrations on file. Lines, Drains, and Airways Type Details Placement Removal Full Thickness 05/30/18; 0845; Surg ical; Right; Breast; right breast tissue line manager exchange - abd's, surgical bra applied; 09/08/20 (not present on arrival); 182405/30/18 0845 by Hina Turcios RN 09/08/20 182 by Deana Parker RN Full Thickness 05/30/18; 1023; Left ; Breast; Left breast mastopexy with implant exchange... abd's surgical bra applied; 09/08/20 (not present on arrival); 182405/30/18 1023 by Hina Turcios RN 09/08/20 1825 by Deana Parker RN Full Thickness 05/30/18; 1149; Surg ical; Umbilicus; Abdominal scar revision; 09/08/20 (not present on arrival); 18205/30/18 1149 by Hina Turcios RN 09/08/20 1824 by Deana Parker RN Full Thickness 08/30/18; 1506; Surg ical; Right; Breast; s/p right breast implant to line manager exchange; 09/08/20 (not present on arrival); 18308/30/18 1506 by Zayra Manzano RN 09/08/20 1833 by Deana Parker RN Wound 05/30/19; 1643; Inci addie; Left, Right, Midline, Lateral; Breast; N; Full thickness; 09/08/20 (not present on arrival); 18305/30/19 1643 by Anusha oHlcomb RN 09/08/20 1833 by Deana Parker RN Peripheral IV 08/06/20; 1015; 24; B Reyes Introcan; Left; Forearm; Inserted by RN; 1; None; 2% Chlorhexidine with IPA; 09/08/20; 19308/06/20 1015 by Quita Álvarez, SHELLEY 09/08/20 193 by Tammi Herrmann RN Peripheral IV 09/08/20; 1342; 20; 1.25; Left, Posterior; Hand; Inserted by RN; 1; 1% Lido, Intradermal; 3.15% Chlorhexidine with IPA; 09/08/20; 192; Per order; Dressing applied, Catheter intact 09/08/20 1342 by Caro Doshi RN 09/08/20 1926 by Tammi Herrmann RN Wound 09/08/20; 1655; Inci addie; Left, Upper; Back; excision of left back lipoma-surgical site ; N; 05/13/22; 1156 09/08/20 1655 by Criselda Zacarias RN 05/13/22 1156 by Filiberto Bojorquez RN Wound 09/08/20; 1656; Inci addie; Right, Posterior, Upper; Back; excision of dog ear-surgical site ; N; 05/13/22; 1156 09/08/20 1656 by Criselda Zacarias RN 05/13/22 1156 by Filiberto Bojorquez RN Wound 09/08/20; 1819; Inci addie; Right; Breast; Right Nipple Revision Incision; N; Full thickness; 05/13/22; 1156 09/08/20 1819 by Deana Parker RN 05/13/22 1156 by Filiberto Bojorquez RN documented in this encounter Social History Tobacco [...] OR Notes * Anesthesia Postprocedure Evaluation - Sendy Burnett AA - 09/08/2020 1833 EDT Patient: Sendy Pleitez Vital signs were reviewed with the recovery nurse. [facility] Vitals Value Taken Time BP 112/70 09/08/200 Temp 36.4 09/08/201832 Resp 14 09/08/201832 Pulse From Oximetry 80 BPM 09/08/201831 SpO2 96 % 09/08/201831 Vitals shown include unvalidated device data. Last Pain Score - Numeric Pain Level (Scale 1-10): 0 Type of Anesthesia - general Anesthesia Post Evaluation Post-procedure vitals reviewed and are stable. Level of consciousness: alert and oriented and awake Temperature status: normothermia Respiratory status: airway patent, stable, O2 Sat-within patient's normal range and room air Cardiovascular status: acceptable and stable Hydration status: adequate Nausea/Vomiting: none Pain management: adequate Post-Op Assessment: patient tolerated procedure well with no complications and patient satisfied with anesthesia care Patient participation: able to participate Disposition: outpatient/home Anesthesia Complications: No apparent anesthesia complications * Anesthesia Procedure Notes - Sendy Burnett AA - 09/08/2020 1624 EDTAssociated Order(s): Airway Airway Date/Time: 09/08/2020 16:18 Urgency: elective Airway not difficult General Information and Staff Patient location during procedure: OR Anesthesiologist: Mustapha Martinez MD Resident/LIGHT INDUSTRIAL SUPERVISOR: Sendy Burnett AA Performed: resident/LIGHT INDUSTRIAL SUPERVISOR/ROSAMARIA Indications and Patient Condition Indications for airway management: anesthesia Sedation level: GA Preoxygenated: yes Patient position: sniffing Ventilation assessment: 1 - Easy Final Airway Details Final airway type: endotracheal airway Successful airway: ETT Cuffed: yes Successful intubation technique: direct laryngoscopy Facilitating devices/methods: intubating stylet Endotracheal tube insertion site: oral Blade: Miko Blade size: #3 ETT size (mm): 7.0 Cormack-Lehane Classification: grade I - full view of glottis Placement verified by: capnometry and palpation of cuff Measured from: lips ETT to lips (cm): 19 Number of attempts at approach: 1 * Anesthesia Preprocedure Evaluation - Mustapha Martinez MD - 09/08/2020 0843 EDT Anesthesia Preprocedure Evaluation Patient Medical History, including Anesthesia History reviewed. Chart and Nursing Notes reviewed, including NPO status and Medication History. Additional ROS/History Findings: 60 yo F with PMH of GERD (well controlled on omeprazole), depression (well controlled on venlafaxine), lumbar radiculopathy (on gabapentin), right breast CA (s/p mastectomy, metastatic to LN, on endocrine therapy), presents for excision of R chests dog ear, excision of L back lipoma, R nipple revision. Did have some nausea after last surgery, no nausea in previous surgeries Prior airways: 05/30/19: Tissue line manager to implant: Easy mask, Albrecht 3 08/30/18: Easy mask, Cisneros 2, view grade not documented 05/30/18: Mask with OA, Mac3 Grade 1 view Allergies Allergen Reactions ??? Amoxicillin Other (See Comments) and Rash Red rash ??? Sulfa (Sulfonamide Antibiotics) Hives Light lavender rash Review of Systems Constitutional: Negative for chills and fever. HENT: Negative for congestion. Respiratory: Negative for cough and shortness of breath. Cardiovascular: Negative for chest pain and palpitations. Gastrointestinal: Negative for heartburn and nausea. Neurological: Negative for seizures. Endo/Heme/Allergies: Does not bruise/bleed easily. Past Medical History: Diagnosis Date ??? Acquired spondylolisthesis ??? Activity, other involving cardiorespiratory exercise snow shoeing ??? Allergy ??? Arthritis right big toe ??? Back pain spinal fussion no issues currently 08/25/20 ??? Breast cancer ([facility]) November 2003 DCIS - right breast ??? Breast cancer, right ([facility]) ??? Depression 08/25/20 well controlled ??? Environmental allergies ??? Exercise involving walking ??? GERD (gastroesophageal reflux disease) well controlled 08/25/20 ??? 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 ??? History of general anesthesia ??? Lumbar radicular syndrome ? ? Nausea & vomiting ??? Numbness ??? Wears glasses Relevant Problems Neuro/Psych (+) Personal history of malignant neoplasm of breast Physical Exam Airway Mallampati: II TM distance: >3 FB Neck ROM: full Cardiovascular Rhythm: regular (-) murmur Dental - normal exam Pulmonary Breath sounds clear to auscultation Abdominal Anesthesia Plan ASA 2 Anesthesia Type - general Anesthesia plan and risks discussed. Informed consent obtained from patient. PAT Note (Notes from 08/09/20 through 09/08/20) No notes of this type exist for this encounter. documented in this encounter Plan of Treatment Upcoming Encounters Date Type Department Care Team (Late st Contact Info) Description 04/02/2024 10:30 EDT Appointment [facility] Interventional Radiology Unit [address] [place] [address] [phone] 04/02/2024 15:15 EDT Office Visit [facility] Surgical Oncology - [address] [phone] Adolfo Carreno MD [address] [place] [address] 2 [place] [phone] 04/05/2024 9:30 EDT Telemedicine [facility] - [facility] Palliative Care Services [address] [place] [phone] Chichi Woods MD [address] [place] [address], [address] [phone] 04/11/2024 15:00 EDT Telemedicine [facility] Hematology & Oncology [address] [phone] Alisson Carreon MD [address] [place] [address] 2 [place] [phone] 04/13/2024 13:30 EDT Appointment [facility] Hematology & Oncology - [address] [address] 04/13/2024 14:00 EDT Appointment [facility] Hematology & Oncology [address] [phone] 04/16/2024 10:00 EST Telemedicine [facility] - [facility] Palliative Care Services [address] [place] [address] [phone] Chichi Woods MD [address] [place] [address], [address] [phone] 04/24/2024 9:00 EST Appointment [facility] Radiology CT Outpatient - [address] [phone] 04/24/2024 11:00 EST Appointment [facility] Breast Imaging - [facility] [address] [place] [address] [place], [place] [address] 04/27/2024 12:00 EST Appointment [facility] Hematology & Oncology [address] [phone] 05/02/2024 15:00 EST Telemedicine [facility] Hematology & Oncology [address] [phone] Alisson Carreon MD [address] [place] [address], Level [address] [place] [phone] 05/04/2024 10:15 EST Ancillary Procedure [facility] Cardiology - [place] [address] 05/04/2024 11:30 EST Appointment [facility] Hematology & Oncology [address] [phone] 05/04/2024 12:00 EST Appointment [facility] Hematology & Oncology - [address] [address] 06/12/2024 13:00 EST Appointment [facility] Radiology CT - [address] [phone] documented as of this encounter Procedures Procedure Name Priority Date/Time Associated Diagnosis Comments ANESTHESIA INTUBATION Routine 09/08/2020 16:24 EDT documented in this encounter Results * Airway (09/08/2020 16:24 EDT) Narrative Sendy Burnett AA - 09/08/2020 16:24 EDT Sendy Burnett AA ? 09/08/2020 16:25 Airway Date/Time: 09/08/2020 16:18 Urgency: elective Airway not difficult General Information and Staff Patient location during procedure: OR Anesthesiologist: Mustapha Martinez MD Resident/LIGHT INDUSTRIAL SUPERVISOR: Sendy Burnett AA Performed: resident/LIGHT INDUSTRIAL SUPERVISOR/ROSAMARIA Indications and Patient Condition Indications for airway management: anesthesia Sedation level: GA Preoxygenated: yes Patient position: sniffing Ventilation assessment: 1 - Easy Final Airway Details Final airway type: endotracheal airway Successful airway: ETT Cuffed: yes Successful intubation technique: direct laryngoscopy Facilitating devices/methods: intubating stylet Endotracheal tube insertion site: oral Blade: Miko Blade size: #3 ETT size (mm): 7.0 Cormack-Lehane Classification: grade I - full view of glottis Placement verified by: capnometry and palpation of cuff Measured from: lips ETT to lips (cm): 19 Number of attempts at approach: 1 Mustapha Martinez MD ANESTHESIA ORDJacquelyn ACOSTA documented in this encounter Visit Diagnoses Not on filedocumented in this encounter Administered Medications Inactive Administered Medications - up to 3 most recent administrations Medication Order MAR Action Action Date Dose Rate Site ceFAZolin (ANCEF) syringe 2 g 2 g, intravenous, Administer over 10 Minutes, PRE-OP ONCE, 1 dose, On Tue09/08/20 at 1630, Routine Given 09/08/2020 16:30 EDT 2 g dexAMETHasone (DECADRON) injection PRN, Starting on Tue09/08/20 at 1630, Until Tue09/08/20 at 1833, Routine, Anesthesia Intraprocedure Given 09/08/2020 16:30 EDT 8 mg dexmedeTOMIDine (PRECEDEX) injection PRN, Starting on Tue09/08/20 at 1614, Until Tue09/08/20 at 1833, Routine, Anesthesia Intraprocedure Given 09/08/2020 16:22 EDT 10 mcg Given 09/08/2020 16:14 EDT 10 mcg fentaNYL citrate (PF) injection PRN, Starting on Tue09/08/20 at 1614, Until Tue09/08/20 at 1833, Routine, Anesthesia Intraprocedure Given 09/08/2020 16:42 EDT 50 mcg Given 09/08/2020 16:14 EDT 50 mcg ketAMINE in NaCl, iso-osmotic (KETALAR) 50 mg/5 mL (10 mg/mL) IV injection PRN, Starting on Tue09/08/20 at 1614, Until Tue09/08/20 at 1833, Routine, Anesthesia Intraprocedure Given 09/08/2020 16:14 EDT 20 mg ketOROLAC (TORADOL) injection PRN, Starting on Tue09/08/20 at 1757, Until Tue09/08/20 at 1833, Routine, Anesthesia Intraprocedure Given 09/08/2020 17:57 EDT 30 mg lactated ringers (LR) infusion at 25 mL/hr, intravenous, CONTINUOUS, Starting on Tue09/08/20 at 1400, Until Tue09/08/20 at 2135, Routine, Preprocedure Continued by Anesthesia 09/08/2020 16:05 EDT New Bag 09/08/2020 13:45 EDT 25 mL/hr lidocaine (PF) 20 mg/mL (2 %) injection PRN, Starting on Tue09/08/20 at 1614, Until Tue09/08/20 at 1833, Routine, Anesthesia Intraprocedure Given 09/08/2020 16:14 EDT 60 mg midazolam (PF) (VERSED) injection PRN, Starting on Tue09/08/20 at 1607, Until Tue09/08/20 at 1833, Routine, Anesthesia Intraprocedure Given 09/08/2020 16:07 EDT 2 mg ondansetron (PF) (ZOFRAN) injection PRN, Starting on Tue09/08/20 at 1757, Until Tue09/08/20 at 1833, Routine, Anesthesia Intraprocedure Given 09/08/2020 17:57 EDT 4 mg propOFol (DIPRIVAN) 500 mg in 50 mL infusion FA IP EQF CONTINUOUS PRN FOR ONE STEP MEDS, Starting on Tue09/08/20 at 1614, Until Tue09/08/20 at 1833, Routine, Anesthesia Intraprocedure Rate Change 09/08/2020 17:58 EDT 50 mcg/kg/min 19.2 mL/hr New Bag 09/08/2020 16:14 EDT 120 mcg/kg/min 46.1 mL/hr propOFol (DIPRIVAN) injection PRN, Starting on Tue09/08/20 at 1614, Until Tue09/08/20 at 1833, Routine, Anesthesia Intraprocedure Given 09/08/2020 17:21 EDT 30 mg Given 09/08/2020 16:32 EDT 50 mg Given 09/08/2020 16:14 EDT 150 mg rocuronium (ZEMURON) injection PRN, Starting on Tue09/08/20 at 1614, Until Tue09/08/20 at 1833, Routine, Anesthesia Intraprocedure Given 09/08/2020 16:14 EDT 50 mg scopolamine (TRANSDERM-SCOP) 1 mg over 3 days patch Administer over 72 Hours, PRN, Starting on Tue09/08/20 at 1610, Until Tue09/08/20 at 1833, Routine, Anesthesia Intraprocedure Given 09/08/2020 16:10 EDT 1 Patch sugammadex (BRIDION) injection PRN, Starting on Tue09/08/20 at 1803, Until Tue09/08/20 at 1833, Routine, Anesthesia Intraprocedure Given 09/08/2020 18:03 EDT 200 mg documented in this encounter Care Teams Construction Carpenter Relationship Specialty Start Date End Date Linda Blancas MD [facility] [address] [place] [address] PCP - General 01/06/11 Adolfo Carreno MD 111 [facility] 2 [place] [phone] General Surgery 04/26/19 Augustina Colin MD PhD 111 [facility] 2 [place] [address] Medical Oncology 04/26/19 documented as of this encounter
--- OUTSIDE RECORDS SUMMARY | 2024-03-20 14:56 | XMS_ITS | Encounter Summary ---
Author Organization [facility] Address [address] [place] [address] Care Team Providers Care Application Administrator Name Role Phone Linda Blancas MD Primary Care Provider [phone] Adolfo Carreno MD Unavailable [phone] Augustina Colin MD PhD Unavailable Unavailable Encounter Details Date Type Department Care Team (Latest Contact Info) Description 10/22/2020 Travel Social History Tobacco Use Types Packs/Day [...] [facility] Interventional Radiology Unit [address] [place] [address] [phone] 04/02/2024 15:15 EDT Office Visit [facility] Surgical Oncology - [address] [phone] Adolfo Carreno MD [address] [place] [phone] 04/05/2024 9:30 EDT Telemedicine [facility] - [facility] Palliative Care Services [address] [place] [address] [phone] Chichi Woods MD [address] [place] [phone] 04/11/2024 15:00 EDT Telemedicine [facility] Hematology & Oncology [address] [phone] Alisson Carreon MD [address] [place] [phone] 04/13/2024 13:30 EDT Appointment [facility] Hematology & Oncology [address] [phone] 04/13/2024 14:00 EDT Appointment [facility] Hematology & Oncology [address] [phone] 04/16/2024 10:00 EST Telemedicine [facility] - [facility] Palliative Care Services [address] [place] [address] [phone] Chichi Woods MD [address] [place] [address], [address] [phone] 04/24/2024 9:00 EST Appointment [facility] Radiology CT Outpatient - [address] [phone] 04/24/2024 11:00 EST Appointment [facility] Breast Imaging - [facility] [address] [place] [address] [place], [place] [phone] 04/27/2024 12:00 EST Appointment [facility] Hematology & Oncology - [address] [phone] 05/02/2024 15:00 EST Telemedicine [facility] Hematology & Oncology - [address] [phone] Alisson Carreon MD [address] [place] [address], [address] [place] [phone] 05/04/2024 10:15 EST Ancillary Procedure [facility] Cardiology - [place] [address] 05/04/2024 11:30 EST Appointment [facility] Hematology & Oncology - [address] [phone] 05/04/2024 12:00 EST Appointment [facility] Hematology & Oncology [address] [phone] 06/12/2024 13:00 EST Appointment [facility] Radiology CT - [address] [phone] documented as of this encounter Visit Diagnoses Not on filedocumented in this encounter Care Teams Application Administrator Relationship Specialty Start Date End Date Linda Blancas MD [facility] [address] [place] [address] PCP - General 01/06/11 Adolfo Carreno MD [address] [place] [address], [facility] 2 [place] [phone] General Surgery 04/26/19 Augustina Colin MD PhD [address] [place] [address], [facility] 2 [place] [phone] Medical Oncology 04/26/19 documented as of this encounter
--- OUTSIDE RECORDS SUMMARY | 2024-03-20 14:56 | XMS_ITS | Encounter Summary ---
Author Organization [facility] Address [address] [place] [address] Care Team Providers Care Dump Truck Driver Off Highway Name Role Phone Linda Blancas MD Primary Care Provider Adolfo Carreno MD Unavailable [phone] Augustina Colin MD PhD Unavailable Unavailable Reason for Referral * (Routine) - Receiving Office to Obtain Authorization Specialty Diagnoses / Procedures Referred By Contac t Referred To Contact Karen Singh PA-C [address] [place] [phone] Referral ID Status Reason Start Date Expiration Date Visits Requested Visits Authorized [id number] Receiving Office to Obtain Authorization Specialty Services Required 1 1 1 Comments Follow up with Dr. Boss in clinic in 7-10 days or as scheduled. Please call [phone] with any questions or concerns. * (Routine) - Receiving Office to Obtain Authorization Specialty Diagnoses / Procedures Referred By Contac t Referred To Contact Karen Singh PA-C [address] [place] [address] [place] [phone] Referral ID Status Reason Start Date Expiration Date Visits Requested Visits Authorized [id number] Receiving Office to Obtain Authorization Specialty Services Required 1 1 1 Comments - Excessive bleeding - Fever greater than 100.5?? F (38.1?? C) - Pain unrelieved by pain medication - Impaired circulation (skin of extremity cool, pale, or blue) - Calf tenderness Reason for Visit * Auth/Cert Specialty Diagnoses / Procedures Referred By Doug t Referred To Contact Diagnoses S/P breast reconstruction, right Lipoma of back Procedures VA REVISE BREAST RECONSTRUCTION VA EXC SKIN BENIG >4 CM TRUNK,ARM,LEG VA NIPPLE/AREOLA RECONSTRUCTION right back dog ear revision, left shoulder lipoma, right nipple reconstruction EXC, BENIGN LESION, BACK 4.0 CM NIPPLE/AREOLA RECONSTRUCTION UNILATERAL Referral ID Status Reason Start Date Expiration Date Visits Re quested Visits Authorized [id number] 07/02/2020 1 1 Encounter Details Date Type Department Care Team (Latest Contact Info) Description 09/08/2020 11:35 EDT - 09/08/2020 19:30 EDT Hospital Encounter [facility] [place] [address] [place] [address] Tylor Boss MD [address] [place] [address] Discharge Disposition: Home or Self Care Social [...] Sign Reading Time Taken Comments Blood Pressure 116/64 09/08/2020 1915 EDT Pulse - - Temperature 37 ??C (98.6 ??F) 09/08/2020 1915 EDT Respiratory Rate 14 09/08/2020 1900 EDT Oxygen Saturation 95% 09/08/2020 191 EDT Inhaled Oxygen Concentration - - Weight [...] Tablets by mouth as needed. 12/07/2023 mv-mn/C/glutamin/lysin/ crqx216 (AIRBORNE, ASCORBATE SODIUM, ORAL) Take by mouth [...] Code Departure Means Destination Home or Self Detention documented in this encounter Progress Notes * [...] currently 08/25/20 ??? 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 Breast cancer, right ([facility]) ??? Depression 08/25/20 well controlled ??? Environmental [...] [place] no complications ??? BREAST SURGERY 08/2018 toe closing machine tender placed right breast - [place] no complications ??? CARPAL TUNNEL RELEASE 200705/07/2019 beir block - no complications ??? LIPOMA RESECTION 200005/07/2019 [place] no complications ??? MASTECTOMY Right ??? VA INSJ/RPLCMT BREAST IMPLANT Feb MASTECTOMY Bilateral 05/30/2019 Exchange right tissue toe closing machine tender to silicone implant, exchange of left implant for matching performedby Tylor Boss MD at [facility] OR Social History Family history [...] Medium ??? Malignant neoplasm of female breast ([facility]) 07/07/2017 Priority: Medium ??? Metastatic breast cancer ([facility]) 11/18/2016 Priority: Medium ??? Breast lump 10/21/2016 Priority: Medium ??? Trigger thumb of left hand 05/21/2013 Priority: Medium ??? Personal history of malignant neoplasm of breast 02/25/2012 Priority: Medium ??? (H)S/P breast reconstruction, right 06/19/2019 Added automatically from request for surgery [id number] ??? (H)Lipoma of back 06/19/2019 Added automatically from request for surgery [id number] ??? Plantar fat pad atrophy 02/14/2014 Left [...] - Tylor Boss MD FACS - 09/08/2020 1930 EDT Operative Note Date: 09/08/2020 Location: OR Name: Sunshine Pleitez, : 1960, Diagnosis Pre-op Diagnosis * S/P breast reconstruction, right [Z98.890] * Lipoma of back [D17.1] @ORDXCODE@ Procedures @ORPXDXCPT@ @[employer](ORL,6660,,17,4)@ Surgeons * Tylor Boss MD FACS - [...] with SURGEON: Dr. Tylor Boss MD, FACS PRESSER AND BLOCKER K[employer]ITTED GOODS: Karen Singh PA-C Physician Cereal Miller Attestation: Ms. Singh's assistance was a necessary and integral participant in the case and present for the entirety of the case. She served to provide aid in exposure, hemostasis, closure and other intraoperative technical functions that helped me carry out a safe operation with optimal results for the patient.) There is no plastic surgery training program at the [facility] and as such there was no [...] condition. * Preprocedure Instructions - Yovana Del Real CNM - 05/14/2020 1143 EST COVID 19 Screening [...] instruct them to call us back at [phone] to report symptoms (If patient is in [...] ahs covid test scheduled for 05/19/2020 at [facility]. Aware to self isolate after her [...] ORAL) Take by mouth daily. 05/19/2020 yes mv-mn/C/glutamin/lysin/yzll077 (AIRBORNE, ASCORBATE SODIUM, ORAL) Take by mouth [...] [facility] [address] [place] [address] 04/02/2024 15:15 EDT Office Visit [facility] [place] [address] Adolfo Carreno MD [address] [facility], Level 2 [place] [phone] 04/05/2024 9:30 EDT Telemedicine [facility] Palliative Care Services [address] [place] [address] [phone] Chichi Woods MD [address] [place] [phone] 04/11/2024 15:00 EDT Telemedicine [facility] Hematology & Oncology - [address] 728331 Alisson Carreon MD [address] [place] [address] 2 [place] [phone] 04/13/2024 13:30 EDT Appointment [facility] Hematology & Oncology - [address] [address] 04/13/2024 14:00 EDT Appointment [facility] Hematology & Oncology [address] 924341 04/16/2024 10:00 EST Telemedicine [facility] Palliative Care Services [address] [place] [address] [phone] Chichi Woods MD [address] [place] [phone] 04/24/2024 9:00 EST Appointment [facility] Radiology CT Outpatient - [address] 344211 04/24/2024 11:00 EST Appointment [facility] Breast Imaging - [address] [phone] 04/27/2024 12:00 EST Appointment [facility] Hematology & Oncology [address] [address] 05/02/2024 15:00 EST Telemedicine [facility] Hematology & Oncology [address] [address] Alisson Carreon MD [address] [place] [address], [facility], Level [address] [place] [phone] 05/04/2024 10:15 EST Ancillary Procedure [facility] Cardiology - [address] [place] [address] 05/04/2024 11:30 EST Appointment [facility] Hematology & Oncology [address] [address] 05/04/2024 12:00 EST Appointment [facility] Hematology & Oncology [address] [address] 06/12/2024 13:00 EST Appointment [facility] Radiology CT [address] [phone] Scheduled Referrals Name Type Priority Associated Diagnoses [...] adipose tissue, consistent with lipoma. 09/12/2020 10:30 [facility] Attestation There was significant resident/fellow involvement in the diagnostic evaluation of this case. By the signature below, the attending physician certifies that they have personally conducted a gross and/or microscopic examination of the described specimens and rendered or confirmed the above diagnosis. 09/12/2020 10:30 [facility] at 1030 Clinical History S/P breast reconstruction, right; lipoma of back 09/12/2020 10:30 [facility] Gross Description A. Received in [...] blue. Sectioning reveals yellow-white unremarkable cut surfaces. Applications Engineering Manager sections are submitted in A1. B. Received [...] scar. Sectioning reveals yellow-white unremarkable cut surfaces. Applications Engineering Manager sections are submitted in B1. C. Received [...] with focal hemorrhagic areas but without necrosis. Applications Engineering Manager sections (approximately 20% of the specimen) are submitted in C1-C4. TANK BEYER(ASCP) 09/10/2020 14:24 09/12/2020 10:30 EDT [facility] Resident/Junior w: Basilia Ramirez MD 09/12/2020 10:30 EDT [facility] Performing Lab [facility] 10:30 EDT [facility] Scanned Images 09/12/2020 10:30 EDT [facility] Tissue TISSUE SPECIMEN FROM SKIN / Unknown 09/08/2020 16:46 EDT 09/09/2020 8:23 EDT Tissue specimen (specimen) SPECIMEN FROM SKIN / Unknown 09/08/2020 16:47 EDT 09/09/2020 8:23 EDT Tissue specimen (specimen) SOFT TISSUE MASS / Unknown 09/08/2020 17:01 EDT 09/09/2020 8:31 EDT Tylor Boss MD FACS PATHOLOGY OR DERABLES [facility] [address] [place] [address] documented in this encounter Visit Diagnoses Diagnosis [...] Tue09/08/20 at 1754, Until Tue09/08/20 at 213, Symptomatic HR < 50, Routine, Recovery (only) diphenhydrAMINE (BENADRYL) injection 12.5 mg 12.5 mg, intravenous, PRN, 1 dose, Starting on Tue09/08/20 at 1754, Until Tue09/08/20 at 213, nausea, Routine, Recovery (only) fentaNYL citrate (PF) [...] (Given - Provid er: Tylor Boss MD FACS) diphenhydrAMINE (BENADRYL) injection 12.5 mg 12.5 mg, [...] 0.1 mg/mL syringe 0.5 mg 1 021 bupivacaine-EPINEPHrine (PF) 0.5 %-1:200,000 injection 1 09/08/2020 ceFAZolin (ANCEF) syringe 2 g 1 09/08/2020 [...] 08/12 documented in this encounter Care Teams Dump Truck Driver Off Highway Relationship Specialty Start Date End Date Linda Blancas MD [address] [place] [address] [address] [place] [address] PCP - General 01/06/11 Adolfo Carreno MD [address] [place] [phone] General Surgery 04/26/19 Augustina oClin MD PhD [address] [place] [phone] Medical Oncology 04/26/19 documented as of this encounter
--- OUTSIDE RECORDS SUMMARY | 2024-03-20 14:56 | XMS_ITS | Encounter Summary ---
Author Organization [facility] Address [address] [place] [address] Care Team Providers Care Impregnator Operator Name Role Phone Linda Blancas MD Primary Care Provider [phone] Adolfo Carreno MD Unavailable [phone] Augustina Colin MD PhD Unavailable Unavailable Encounter Details Date Type Department Care Team (Late st Contact Info) Description 09/05/2020 Orders Only [facility] Hematology & Oncology - [facility] [address] [place] [address] Augustina Colin, PhD Malignant neoplasm of right [...] Info) Description 04/02/2024 10:30 EDT Appointment [facility] Interventional Radiology Unit [address] [place] [address] [phone] 04/02/2024 15:15 EDT Office Visit [facility] Surgical Oncology - [address] [phone] Adolfo Carreno MD 111 [facility] 2 [place] [phone] 04/05/2024 9:30 EDT Telemedicine [facility] - [facility] Palliative Care Services [address] [place], [place] [phone] Chichi Woods MD [address] [place] [address], [address] [phone] 04/11/2024 15:00 EDT Telemedicine [facility] Hematology & Oncology - [address] [phone] Alisson Carreon MD [address] [place] [address], [facility] [address] [place] [phone] 04/13/2024 13:30 EDT Appointment [facility] Hematology & Oncology - [address] [phone] 04/13/2024 14:00 EDT Appointment [facility] Hematology & Oncology [address] [address] 04/16/2024 10:00 EST Telemedicine [facility] - [facility] Palliative Care Services [address] [place] [phone] Chichi Woods MD [address] [place] [address], [address] [phone] 04/24/2024 9:[address] [facility] Radiology CT Outpatient - [address] [id number] 04/24/2024 11:00 EST Appointment [facility] Breast Imaging - [facility] [address] [place], [place] 864251 04/27/2024 12:00 EST Appointment [facility] Hematology & Oncology [address] 261721 05/02/2024 15:00 EST Telemedicine [facility] Hematology & Oncology [address] [phone] Alisson Carreon MD [address] [place] [address], Level [address] [place] [phone] 05/04/2024 10:15 EST Ancillary Procedure [facility] Cardiology - [place] [address] 05/04/2024 11:30 EST Appointment [facility] Hematology & Oncology [address] 704951 05/04/2024 12:00 EST Appointment [facility] Hematology & Oncology [address] [phone] 06/12/2024 13:00 EST Appointment [facility] Radiology CT - [facility] [address] [place] [address] documented as of this encounter Visit Diagnoses Diagnosis Malignant neoplasm of right female breast, unspecified estrogen receptor status, unspecified site of breast ([facility] Primary documented in this encounter Orders Appointment Requests Count Last Ordered Date Fi rst Ordered Date ONCBCN INJECTION APPOINTMENT REQUEST 2 01/1112/25/2020 documented in this encounter Care Teams Impregnator Operator Relationship Specialty Start Date End Date Linda Blancas MD [facility] [address] [place] [address] PCP - General 01/06/11 Adolfo Carreno MD [address] [place] [address] 2 [place] [phone] General Surgery 04/26/19 Augustina Colin MD PhD [address] [place] [address] 2 [place] [phone] Medical Oncology 04/26/19 documented as of this encounter
--- OUTSIDE RECORDS SUMMARY | 2024-03-20 14:56 | XMS_ITS | Encounter Summary ---
Author Organization [facility] Address [address] [place] [address] Care Team Providers Care Culturist Name Role Phone Linda Blancas MD Primary Care Provider [phone] Adolfo Carreno MD Unavailable [phone] Augustina Colin MD PhD Unavailable Unavailable Encounter Details Date Type Department Care Team (Late st Contact Info) Description 09/30/2020 Orders Only [facility] Cancer Center Hematology & Oncology - [facility] [address] [place] [address] Augustina Colin, PhD Social History Tobacco Use [...] 11:02 EDT documented as of this encounter Functional [...] Contact Info) Description 04/02/2024 10:30 EDT Appointment [facility] Interventional Radiology Unit [address] [place] [address] [phone] 04/02/2024 15:15 EDT Office Visit [facility] Surgical Oncology - [address] 734241 Adolfo Carreno MD [address] [place] [address] 2 [place] [phone] 04/05/2024 9:30 EDT Telemedicine [facility] - [facility] Palliative Care Services [address] [place] [address] [phone] Chichi Woods MD [address] [place] [address], [address] [phone] 04/11/2024 15:00 EDT Telemedicine [facility] Hematology & Oncology [address] [phone] Alisson Carreon MD [address] [place] [address] [address] [place] [phone] 04/13/2024 13:30 EDT Appointment [facility] Hematology & Oncology [address] [address] 04/13/2024 14:00 EDT Appointment [facility] Hematology & Oncology - [address] [address] 04/16/2024 10:00 EST Telemedicine [facility] - [facility] Palliative Care Services [address] [place] [address] Chichi Woods MD [address] [place] [address], [address] [phone] 04/24/2024 9:00 EST Appointment [facility] Radiology CT Outpatient - [address] 484371 04/24/2024 11:00 EST Appointment [facility] Breast Imaging - [facility] S [address] 040401 04/27/2024 12:00 EST Appointment [facility] Hematology & Oncology - [address] [phone] 05/02/2024 15:00 EST Telemedicine [facility] Hematology & Oncology - [address] [phone] Alisson Carreon MD [address] [place] [address], [facility] [address] [place] [phone] 05/04/2024 10:15 EST Ancillary Procedure [facility] Cardiology - [place] [address] 05/04/2024 11:30 EST Appointment [facility] Hematology & Oncology - [address] [address] 05/04/2024 12:00 EST Appointment [facility] Hematology & Oncology - [address] 064031 06/12/2024 13:00 EST [facility]ment [facility] Rad[facility] - [address] [address] documented as of this encounter Visit Diagnoses Not on filedocumented in this encounter Care Teams Culturist Relationship Specialty Start Date End Date Linda Blancas MD [facility] [address] [place] [address] PCP - General 01/06/11 Adolfo Carreno MD [address] [place] [phone] General Surgery 04/26/19 Augustina Colin MD PhD [address] [place] [phone] Medical Oncology 04/26/19 documented as of this encounter
--- OUTSIDE RECORDS SUMMARY | 2024-03-20 14:56 | XMS_ITS | Encounter Summary ---
Author Organization [facility] Address [address] [place] [address] Care Team Providers Care Excel Specialist Name Role Phone Linda Blancas MD Primary Care Provider [phone] Adolfo Carreno MD Unavailable [phone] Augustina Colin MD PhD Unavailable Unavailable Reason for Visit * Reason Comments Post-OP Follow Up Right dog ear, left shoulder lipoma right nipple recon-09/08 Encounter Details Date Type Department Care Team (Latest Contact Info) Description 10/22/2020 11:00 EDT Post-op Visit [facility] Plastic, Reconstructive & Cosmetic Surgery - [address], [address] [place] [address] Deana Shaw, PANitaC [address] [place] [address] [facility] [place] [phone] Surgical follow-up care (Primary Dx) Social History Tobacco Use Types [...] Pressure - - Pulse - - Temperature 36.2 ??C (97.1 ??F) 10/22/2020 1100 EDT Respiratory Rate - - Oxygen Saturation - [...] as of this encounter Progress Notes * Deana Shaw PA-C - 10/22/2020 1100 EDT SUBJECTIVE: Sunshine Pleitez returns in follow up from 1. Right reconstructed nipple revisionwith allograft augmentation; 2. Revision of right reconstructed breast lateral dog ear; and 3. Excision of left shoulder lipoma on 09/08/2020. She is doing well. Pain control is adequate without pain medication. No new acute health complaints are reported today. OBJECTIVE: On examination, she is in no distress. Her incisions are healing well without erythema, drainage, or dehiscence. No palpable fluid collections. Good contour. IMPRESSION: Doing well; 6 weeks post op PLAN:May slowly return to regular activities and bra wear. Nipple tattooing can be done at 3 monthspost op if she would like to pursue it. Follow up at 6 months post op otherwise. Patient comfortable with plan. All questions answered. Deana Shaw PA-C documented in this encounter Plan of Treatment Upcoming Encounters Date Type Department Care Team (Late st Contact Info) Description 04/02/2024 10:[address] [facility] Interventional Radiology Unit [address] [place] [address] [phone] 04/02/2024 15:[address] [facility] Surgical Oncology - [address] 909761 Adolfo Carreno MD [address] [place] [phone] 04/05/2024 9:30 EDT Telemedicine [facility] Palliative Care Services [address] [place] [address] [phone] Chichi Woods MD [address] [place] [phone] 04/11/2024 15:00 EDT Telemedicine [facility] Hematology & Oncology [address] [phone] Alisson Carreon MD [address] [place] [phone] 04/13/2024 13:30 EDT Appointment [facility] Hematology & Oncology [address] 246251 04/13/2024 14:00 EDT Appointment [facility] Hematology & Oncology [address] [phone] 04/16/2024 10:00 EST Telemedicine [facility] Palliative Care Services [address] [place] [address] [phone] Chichi Woods MD [address] [place] [address], [address] [place] [phone] 04/24/2024 9:00 EST Appointment [facility] Radiology CT Outpatient - [address] [id number] 04/24/2024 11:[address] [facility] Breast Imaging - [facility] [address] [place], [place] 336571 04/27/2024 12:00 EST Appointment [facility] Hematology & Oncology [address] [phone] 05/02/2024 15:00 EST Telemedicine [facility] Hematology & Oncology [address] [phone] Alisson Carreon MD [address] [place] [address], [address] [place] [phone] 05/04/2024 10:[address] [facility] Cardiology - [place] [address] 05/04/2024 11:30 EST Appointment [facility] Hematology & Oncology [address] 724261 05/04/2024 12:00 EST Appointment [facility] Hematology & Oncology - [address] 213861 06/12/2024 13:00 EST Appointment [facility] Radiology CT - [address] [phone] documented as of this encounter Visit Diagnoses Diagnosis Surgical follow-up care- Primary Follow-up examination, following unspecified surgery documented in this encounter Care Teams Excel Specialist Relationship Specialty Start Date End Date Linda Blancas MD [facility] [address] [place] [address] PCP - General 01/06/11 Adolfo Carreno MD [address] [place] [phone] General Surgery 04/26/19 Augustina Colin MD PhD [address] [place] [phone] Medical Oncology 04/26/19 documented as of this encounter
--- OUTSIDE RECORDS SUMMARY | 2024-03-20 14:56 | XMS_ITS | Encounter Summary ---
Author Organization [facility] Address [address] [place] [address] Care Team Providers Care Counter Hand Name Role Phone Linda Blancas MD Primary Care Provider [phone] Adolfo Carreno MD Unavailable [phone] Augustina Colin MD PhD Unavailable Unavailable Encounter Details Date Type Department Care Team (Late st Contact Info) Description 10/29/2020 Orders Only [facility] Cancer Center Hematology & Oncology - [facility] [address] [place] [address] Augustina Colin, PhD Social History Tobacco Use [...] [facility] Interventional Radiology Unit [address] [place] [address] [phone] 04/02/2024 15:15 EDT Office Visit [facility] Surgical Oncology - [address] [phone] Adolfo Carreno MD [address] [place] [address] 2 [place] [phone] 04/05/2024 9:30 EDT Telemedicine [facility] - [facility] Palliative Care Services [address] [place] [address] [phone] Chichi Woods MD [address] [place] [address], [address] [phone] 04/11/2024 15:00 EDT Telemedicine [facility] Hematology & Oncology [address] [phone] Alisson Carreon MD [address] [place] [address] 2 [place] [phone] 04/13/2024 13:30 EDT Appointment [facility] Hematology & Oncology [address] [address] 04/13/2024 14:00 EDT Appointment [facility] Hematology & Oncology - [address] [address] 04/16/2024 10:00 EST Telemedicine [facility] - [facility] Palliative Care Services [address] [place] [address] Chichi Woods MD [address] [place] [address], [address] [phone] 04/24/2024 9:[address] [facility] Radiology CT Outpatient - [address] 125431 04/24/2024 11:00 EST Appointment [facility] Breast Imaging - [facility] S [address] [phone] 04/27/2024 12:00 EST Appointment [facility] Hematology & Oncology - [address] [phone] 05/02/2024 15:00 EST Telemedicine [facility] Hematology & Oncology - [address] 271371 Alisson Carreon MD [address] [place] [address], [facility] 2 [place] [phone] 05/04/2024 10:15 EST Ancillary Procedure [facility] Cardiology [place] [address] 05/04/2024 11:30 EST Appointment [facility] Hematology & Oncology - [address] [address] 05/04/2024 12:00 EST Appointment [facility] Hematology & Oncology - [address] 105141 06/12/2024 13:00 EST [facility] Radiology [facility] - [address] [address] documented as of this encounter Visit Diagnoses Not on filedocumented in this encounter Care Teams Counter Hand Relationship Specialty Start Date End Date Linda Blancas MD [facility] [address] [place] [address] PCP - General 01/06/11 Adolfo Carreno MD [address] [place] [phone] General Surgery 04/26/19 Augustina Colin MD PhD [address] [place] [phone] Medical Oncology 04/26/19 documented as of this encounter
--- OUTSIDE RECORDS SUMMARY | 2024-03-20 14:56 | XMS_ITS | Encounter Summary ---
Author Organization [facility] Address [address] [place] [address] Care Team Providers Care Meat Products Demonstrator Name Role Phone Linda Blancas MD Primary Care Provider [phone] Adolfo Carreno MD Unavailable [phone] Augustina Colin MD PhD Unavailable Unavailable Encounter Details Date Type Department Care Team (Latest Contact Info) Description 09/03/2020 9:06 EDT - 09/03/2020 23:59 EDT Hospital Encounter [facility] Cancer Center Hematology & Oncology - Main [place] [address] [place], [place] [phone] Malignant neoplasm of right female breast, unspecified [...] by mouth daily. 90 Tab 3 08/16/2012 abemaciclib 150 mg tabletIndications:Metasta tic breast cancer Take 150 mg by mouth every 12 hours. 60 Tab 2 06/16/2020 09/08/2020 acetaminophen (TYLENOL) 325 mg tablet Take 2 tablets by mouth every 4 hours as needed for Pain. 08/30/2018 05/26/2021 cephalexin (KEFLEX) 500 mg capsule Take 1 Cap by mouth 4 times daily for 5 days. 20 Cap 09/08/2020 09/13/2020 diphenoxylate-atropine (LOMOTIL) 2.5-0.025 mg per tablet Take 2 tabs every 6 hours until control achieved, then take 2 tabs daily for maintenance. 30 Tab 1 06/19/2020 09/08/2020 DOXYLAMINE SUCCINATE (UNISOM ORAL) Take by mouth [...] 2 Tablets by mouth as needed. 12/07/2023 mv-mn/C/glutamin/lysin/he rb124 (AIRBORNE, ASCORBATE SODIUM, ORAL) Take by mouth as needed. 12/14/2023 omeprazole (PRILOSEC) 20 mg capsule Take 1 Capsule by mouth daily. 03/28/2023 ondansetron (ZOFRAN-ODT) 4 mg disintegrating tablet Take 1 Tab by mouth every 8 hours as needed for Nausea. 20 Tab 1 06/02/2019 09/08/2020 venlafaxine (EFFEXOR-XR) 150 mg XR capsule Take 1 Cap by mouth daily. 90 Cap 3 08/16/2012 12/14/2023 zolpidem (AMBIEN) 5 mg tablet Take 5 mg by mouth at bedtime as needed for Sleep. Reported on 11/01/2016 01/13/2022 documented as of this encounter Discharge Disposition Disposition Code Departure Means Destination Home or Self Care documented in this encounter Progress Notes * Bonilla Medrano RN - 09/03/2020 1130 EDT Patient presents to clinic for Faslodex injection today. Labs checked this morning, injection ok jessenia given without results. Two 250mg syringes given in the right and left buttocks, signs of bleeding or reaction. Band-aids applied. I was supervised by Dr. Colin who was present and immediately available in the office suite. BONILLA MEDRANO RN 09/03/2020 10:06 documented in this encounter Miscellaneous Notes * Addendum Note - Reta Kuhn - 09/03/2020 1130 EDTEncounter addended by: Reta Kuhn on: 09/11/2020 14:19 Actions taken: Charge Capture section accepted documented in this encounter Plan of Treatment Upcoming Encounters Date Type Department Care Team (Late st Contact Info) Description 04/02/2024 10:[address] [facility] Interventional Radiology Unit [address] [place] [address] [phone] 04/02/2024 15:[address] [facility] Surgical Oncology - [address] [phone] Adolfo Carreno MD [address] [place] [address] [phone] 04/05/2024 9:[address] [facility] Palliative Care Services [address] [place] [address] [phone] Chichi Woods MD [address] [place] [address] [phone] 04/11/2024 15:00 EDT Telemedicine [facility] Hematology & Oncology [address] [phone] Alisson Carreon MD [address] [place] [address] [phone] 04/13/2024 13:30 EDT Appointment [facility] Hematology & Oncology [address] [phone] 04/13/2024 14:00 EDT Appointment [facility] Hematology & Oncology [address] 093151 04/16/2024 10:[address] [facility] Palliative Care Services [address] [place] [address] [phone] Chichi Woods MD [address] [place] [address] [phone] 04/24/2024 9:00 EST Appointment [facility] Radiology CT Outpatient - [address] [address] 04/24/2024 11:[address] [facility] Breast Imaging - [facility] S [place] [address] [place] [address] 04/27/2024 12:00 EST Appointment [facility] Hematology & Oncology - [address] [address] 05/02/2024 15:00 EST Telemedicine [facility] Hematology & Oncology [address] 155521 Alisson Carreon MD [address] [place] [address], Level 2 [place] [phone] 05/04/2024 10:[address] [facility] Cardiology - [address] [place] [address] 05/04/2024 11:30 EST Appointment [facility] Hematology & Oncology [address] [address] 05/04/2024 12:00 EST Appointment [facility] Hematology & Oncology [address] [id number] 06/12/2024 13:00 EST Appointment [facility] Radiology CT - [address] [phone] documented as of this encounter Visit Diagnoses Diagnosis Malignant neoplasm of right female breast, unspecified estrogen receptor status, unspecified site of breast (HCC-CMS)- Primary documented in this encounter Administered Medications Inactive Administered Medications - up to 3 most recent administrations Medication Order MAR Action Action Date Dose Rate Site fulvestrant (FASLODEX) injection 500 mg 500 mg, intramuscular, NOW X1, 1 dose, On Tue09/03/20 at 1000, Routine Given 09/03/2020 9:58 EDT 500 mg documented in this encounter Orders Appointment Requests Count Last Ordered Date Fi rst Ordered Date ONCBCN INJECTION APPOINTMENT REQUEST 1 08/12 documented in this encounter Care Teams Meat Products Demonstrator Relationship Specialty Start Date End Date Linda Blancas MD [facility] [address] [place] [address] PCP - General 01/06/11 Adolfo Carreno MD [address] [place] [address] [phone] General Surgery 04/26/19 Augustina Colin MD PhD [address] [place] [phone] Medical Oncology 04/26/19 documented as of this encounter
--- OUTSIDE RECORDS SUMMARY | 2024-03-20 14:56 | XMS_ITS | Encounter Summary ---
Author Organization [facility] Address [address] [place] [address] Care Team Providers Care Repairer Art Objects Name Role Phone Linda Blancas MD Primary Care Provider [phone] Adolfo Carreno MD Unavailable [phone] Augustina Colin MD PhD Unavailable Unavailable Reason for Visit * Reason Onset Date Comments Surgery Scheduling 09/05/2020 Encounter Details Date Type Department Care Team (Late st Contact Info) Description 09/05/2020 Telephone [facility] Plastic, Reconstructive & Cosmetic Surgery - [address], [address] [place] [address] Tylor Boss MD [address] [place] [phone] Surgery Scheduling Social History Tobacco Use Types Packs/Day Years [...] encounter Miscellaneous Notes * Telephone Encounter - Dasha Lockhart - 09/05/2020 1256 EDT Patient has been informed of her date/time for surgery scheduled with Dr. Tylor Boss on Tuesday September 08, 2020. Surgery is scheduled to start around 1:30 PM. Patient has been informed to arrive at [address] [place] [address] at the registration office at 11:30 AM. documented in this encounter Plan of Treatment Upcoming Encounters Date Type Department Care Team (Late st Contact Info) Description 04/02/2024 10:30 EDT Appointment [facility] Interventional Radiology Unit [address] [place] [address] [phone] 04/02/2024 15:15 EDT Office Visit [facility] Surgical Oncology - [facility] [address] [place], [place] [phone] Adolfo Carreno MD 111 [facility], Level 2 [place] [phone] 04/05/2024 9:[address] [facility] Services [address] [place], [place] 812471 Chichi Woods MD [address] [place] [address] [phone] 04/11/2024 15:00 EDT Telemedicine [facility] Hematology & Oncology - [address] [phone] Alisson Carreon MD [address] [place] [address], Level [address] [place] [phone] 04/13/2024 13:30 EDT Appointment [facility] Hematology & Oncology [address] [phone] 04/13/2024 14:00 EDT Appointment [facility] Hematology & Oncology [address] [phone] 04/16/2024 10:[address] [facility] Pall[facility] Services [address] [place] [address] [phone] Chichi Woods MD [address] [place] [address] [phone] 04/24/2024 9:00 EST Appointment [facility] Radiology CT Outpatient - [address] 117301 04/24/2024 11:00 EST Appointment [facility] Breast Imaging - [address] [phone] 04/27/2024 12:00 EST Appointment [facility] Hematology & Oncology - [address] [phone] 05/02/2024 15:00 EST Telemedicine [facility] Hematology & Oncology - [address] [phone] Alisson Carreon MD [address] [place] [address] 2 [place] [phone] 05/04/2024 10:15 EST Ancillary Procedure [facility] Cardiology - [place] [place] [address] 05/04/2024 11:30 EST Appointment [facility] Hematology & Oncology [address] [phone] 05/04/2024 12:00 EST Appointment [facility] Hematology & Oncology [address] [phone] 06/12/2024 13:00 EST Appointment [facility] Radiology CT - [address] [phone] documented as of this encounter Visit Diagnoses Not on filedocumented in this encounter Care Teams Repairer Art Objects Relationship Specialty Start Date End Date Linda Blancas MD [facility] [address] [place] [address] PCP - General 01/06/11 Adolfo Carreno MD [address] [place] [address] [phone] General Surgery 04/26/19 Augustina Colin MD PhD [address] [place] [phone] Medical Oncology 04/26/19 documented as of this encounter
--- OUTSIDE RECORDS SUMMARY | 2024-03-20 14:56 | XMS_ITS | Encounter Summary ---
Author Organization [facility] Address [address] [place] [address] Care Team Providers Care Fence Erector Name Role Phone Linda Blancas MD Primary Care Provider [phone] Adolfo Carreno MD Unavailable [phone] Augustina Colin MD PhD Unavailable Unavailable Reason for Visit * Reason Onset Date Comments Post-OP Follow Up 09/10/2020 Encounter Details Date Type Department Care Team (Late st Contact Info) Description 09/10/2020 Telephone [facility] Plastic, Reconstructive & Cosmetic Surgery - [address], [address] [place] [address] Susanna Jaquez RN Post-OP Follow Up Social History Tobacco Use Types Packs/Day Years [...] encounter Miscellaneous Notes * Telephone Encounter - Susanna Jaquez RN - 09/10/2020 0945 EDT Left message for patient to call clinic. SUSANNA JAQUEZ RN 09/10/2020 10:03 Post op follow up phone call was made 09/10/2020 Patient condition was discuss with Sendy Pleitez Type of Surgery: excision of right lateral chest dog ear, excision of left back lipoma, right nipple revision with allograft Surgeon: Dr. Boss Date of Surgery: 09/08/2020 Appetite: Normal, no nausea - Drink more fluids than usual today. ?? - Okay to resume your preoperative diet. Bowels: Yes Voiding: Normal, no complaints Activity: Ambulating around the house as tolerated. Reviewed below restrictions. -Try to walk each day. Start by walking a little more than you did the day before. Bit by bit, increase the amount you walk. Walking boosts blood flow and helps prevent pneumonia, constipation, and blood clots in your legs. - Please avoid heavy lifting and athletic activity. - Please sleep with head elevated on a few pillows. Incision and dressings: Reviewed below. - There is a protective guard on your right breast - keep this in place until over your first post op visit. Avoid getting the surgical sites wet. -Wear compression bra at all times - When showering, please wash very gently and pat the area dry. - Do not take a bath or soak the operative area. Pain:tolerable Hydromorphone 2 mg, take 1 tab by mouth every 4 hours as needed Acetaminophen 325 mg, take 2 tabs by mouth every 4 hours as needed ABX: Tolerating well Cephalexin 500 mg, take 1 cap by mouth 4 times daily for 5 days Fever: No Problems/ Concerns: One concern that the patient expressed was that the paper tape was coming off the dog ear revision.She was wondering if her could trim the paper tape and apply new tape to the incision. Spoke with Dr. Boss, he states that it was okay for to do that but to make sure it is paper tape. Relayed message to patient. She agreed with plan. Additional Info / Patient education See above information Date of post-op/ follow up visit September 16, 2020 at 11AM with GRISEL Ryan RN 09/10/2020 11:46 documented in this encounter Plan of Treatment Upcoming Encounters Date Type Department Care Team (Late st Contact Info) Description 04/02/2024 10:30 EDT Appointment [facility] Interventional Radiology Unit [address] [place] [address] [phone] 04/02/2024 15:15 EDT Office Visit [facility] Surgical Oncology - [address] [phone] Adolfo Carreno MD [address] [place] [address] [phone] 04/05/2024 9:30 EDT Telemedicine [facility] - [facility] Palliative Care Services [address] [place] [address] [phone] Chichi Woods MD [address] [place] [address] [phone] 04/11/2024 15:00 EDT Telemedicine [facility] Hematology & Oncology - [address] [phone] Alisson Carreon MD [address] [place] [address] 2 [place] [phone] 04/13/2024 13:30 EDT Appointment [facility] Hematology & Oncology - [address] [phone] 04/13/2024 14:00 EDT Appointment [facility] Hematology & Oncology - [address] [phone] 04/16/2024 10:00 EST Telemedicine [facility] Palliative Care Services [address] [place] [address] [phone] Chichi Woods MD [address] [place] [address], [address] [phone] 04/24/2024 9:00 EST Appointment [facility] Radiology CT Outpatient - [address] [id number] 04/24/2024 11:00 EST Appointment [facility] Breast Imaging - [facility] S [address] [phone] 04/27/2024 12:00 EST Appointment [facility] Hematology & Oncology - [address] [phone] 05/02/2024 15:00 EST Telemedicine [facility] Hematology & Oncology - [address] [phone] Alisson Carreon MD [address] [place] [address], Level 2 [place] [phone] 05/04/2024 10:15 EST Ancillary Procedure [facility] Cardiology - [address] [place], [place] [phone] 05/04/2024 11:30 EST Appointment [facility] Hematology & Oncology - [address] [address] 05/04/2024 12:00 EST Appointment [facility] Hematology & Oncology - [address] [address] 06/12/2024 13:00 EST Appointment [facility] Radiology CT - [address] [address] documented as of this encounter Visit Diagnoses Not on filedocumented in this encounter Care Teams Fence Erector Relationship Specialty Start Date End Date Linda Blancas MD [facility] [address] [place] [address] PCP - General 01/06/11 Adolfo Carreno MD [address] [place] [address], [facility] 2 [place] [phone] General Surgery 04/26/19 Augustina Colin MD PhD [address] [place] [address], [facility] 2 [place] [phone] Medical Oncology 04/26/19 documented as of this encounter
--- OUTSIDE RECORDS SUMMARY | 2024-03-20 14:56 | XMS_ITS | Encounter Summary ---
Author Organization [facility] Address [address] [place] [address] Care Team Providers Care Record Retrieval Specialist Name Role Phone Linda Blancas MD Primary Care Provider [phone] Adolfo Carreno MD Unavailable [phone] Augustina Colin MD PhD Unavailable Unavailable Encounter Details Date Type Department Care Team (Late st Contact Info) Description 09/03/2020 Orders Only [facility] Radiology - Main [place] [address] [place] [address] Aman Myles MD [address] [place] [phone] Social History Tobacco Use Types Packs/Day Years [...] [facility] Inter[facility] Radiology Unit [address] [place] [address] [phone] 04/02/2024 15:15 EDT Office Visit [facility] Surgical Oncology - [address] [phone] Adolfo Carreno MD 111 [facility] 2 [place] [phone] 04/05/2024 9:30 EDT Telemedicine [facility] - [facility] Palliative Care Services [address] [place], [place] [phone] Chichi Woods MD [address] [place] [address], [address] [phone] 04/11/2024 15:00 EDT Telemedicine [facility] Hematology & Oncology - [address] [phone] Alisson Carreon MD [address] [place] [address], [place] [address] [place] [phone] 04/13/2024 13:30 EDT Appointment [facility] Hematology & Oncology - [address] [phone] 04/13/2024 14:00 EDT Appointment [facility] Hematology & Oncology [address] [address] 04/16/2024 10:00 EST Telemedicine [facility] Palliative Care Services [address] [place] [address] [phone] Chichi Woods MD [address] [place] [address], [address] [phone] 04/24/2024 9:00 EST Appointment [facility] Radiology CT Outpatient - [address] 162381 04/24/2024 11:00 EST Appointment [facility] Breast Imaging - [facility] S [place] [address] [place], [place] [phone] 04/27/2024 12:00 EST Appointment [facility] Hematology & Oncology [address] [phone] 05/02/2024 15:00 EST Telemedicine [facility] Hematology & Oncology [address] 261261 Alisson Carreon MD [address] [place] [address], Level [address] [place] [phone] 05/04/2024 10:15 EST Ancillary Procedure [facility] Cardiology - [place] [address] 05/04/2024 11:30 EST Appointment [facility] Hematology & Oncology [address] 600691 05/04/2024 12:00 EST Appointment [facility] Hematology & Oncology [address] [address] 06/12/2024 13:00 [facility] Radiology CT - [facility] [address] [place], [place] 056561 documented as of this encounter Visit Diagnoses Not on filedocumented in this encounter Care Teams Record Retrieval Specialist Relationship Specialty Start Date End Date Linda Blancas MD [facility] [address] [place] [address] PCP - General 01/06/11 Adolfo Carreno MD [address] [place] [address], [place] [address] [place] [phone] General Surgery 04/26/19 Augustina Colin MD PhD [address] [place] [address], [place] 2 [place] [phone] Medical Oncology 04/26/19 documented as of this encounter
--- OUTSIDE RECORDS SUMMARY | 2024-03-20 14:56 | XMS_ITS | Encounter Summary ---
Author Organization [facility] Address [address] [place] [address] Care Team Providers Care Real Estate Clerk Name Role Phone Linda Blancas MD Primary Care Provider [phone] Adolfo Carreno MD Unavailable [phone] Augustina Colin MD PhD Unavailable Unavailable Reason for Visit * Reason Comments Post-OP Follow Up right dog ear revisi on, left shoulder lipoma, right nipple recon-09/08 Encounter Details Date Type Department Care Team (Latest Contact Info) Description 09/16/2020 11:00 EDT Post-op Visit [facility]astic[facility]ive [facility] Cosmetic Surgery - [address], [address] [place] [address] Karen Singh PA-C [address] [place] [phone] Surgery follow-up (Primary Dx) Social History Tobacco Use Types [...] - Pulse - - Temperature 36.2 ??C (97.2 ??F) 09/16/2020 1103 EDT Respiratory Rate - - Oxygen Saturation [...] as of this encounter Progress Notes * Karen Singh PA-C - 09/16/2020 1100 EDT SUBJECTIVE: Sunshine Pleitez returns in follow up from 1. Right reconstructed nipple revisionwith allograft augmentation; 2. Revision of right reconstructed breast lateral dog ear; and 2. Excision of lipoma on 09/08/2020. She is doing well. Pain control is adequate without pain medication. Nipple guard remains in place as instructed. Compression bra is worn as advised. No new acute health complaints are reported today. OBJECTIVE: On examination, she is in no distress. Right nipple guard is removed. Her incision papule has moderate projection; site is devoid of drainage, erythema and rash. Good early healing. Her skin incision of left breast dog ear and right shoulder lipoma are Well healing. Surgical tapesremoved and replaced. No infection concerns. Lab results discussed with patient. Final Diagnosis A. SOFT TISSUE, BACK, RIGHT UPPER, DOG EAR, EXCISION: - Skin with scar and subcutaneous mature adipose tissue. B. SOFT TISSUE, BACK, LEFT UPPER, PREVIOUS SURGERY SCAR OF RECURRENT LIPOMA, EXCSION: - Skin with scar and subcutaneous mature adipose tissue. C. SOFT TISSUE, BACK, LEFT UPPER, RECURRENT LIPOMA, EXCISION: - Mature adipose tissue, consistent with lipoma. IMPRESSION: Doing well; POD #8. PLAN: Nipple papule to be protected with foam guard - supply provided. Compression bra use to continue. Surgical tapes to remain in place until adhesive dissipates. No soaking or hot tub use as advised. Walking for exercise is okay at this time. Follow up at six weeks post op or earlier in the event of new concerns. Karen Singh PA-C 09/16/2020 12:55 documented in this encounter Plan of Treatment Upcoming Encounters Date Type Department Care Team (Late st Contact Info) Description 04/02/2024 10:30 EDT Appointment [facility] Interventional Radiology Unit [address] [place] [address] [phone] 04/02/2024 15:15 EDT Office Visit [facility] Surgical Oncology - [address] [phone] Adolfo Carreno MD [address] [place] [address], Level [address] [place] [phone] 04/05/2024 9:30 EDT Telemedicine [facility] [address] [place] [address] [phone] Chichi Woods MD [address] [place] [address], [address] [place] [phone] 04/11/2024 15:00 EDT Telemedicine [facility] Hematology & Oncology - [address] [phone] Alisson Carreon MD [address] [place] [address], [facility] 2 [place] [phone] 04/13/2024 13:30 EDT Appointment [facility] Hematology & Oncology [address] [phone] 04/13/2024 14:00 EDT Appointment [facility] Hemat[facility] & Oncology - [address] 926781 04/16/2024 10:00 EST Telemedicine [facility] [address] [place] [address] [phone] Chichi Woods MD [address] [place] [address], [address] [phone] 04/24/2024 9:00 EST Appointment [facility] Radiology CT Outpatient - [address] [id number] 04/24/2024 11:00 EST Appointment [facility] Breast Imaging - [facility] S [address] 665241 04/27/2024 12:00 EST Appointment [facility] Hemat[facility] & Oncology [address] 120321 05/02/2024 15:00 EST Telemedicine [facility] Hematology & Oncology - [address] 253241 Alisson Carreon MD [address] [place] [address], [facility] 2 [place] [phone] 05/04/2024 10:15 EST Ancillary Procedure [facility] Cardiology - [address] [place], [place] [phone] 05/04/2024 11:30 EST Appointment [facility] [place] Hematology & Oncology - [address] [address] 05/04/2024 12:00 EST Appointment [facility] Hematology & Oncology - [address] [address] 06/12/2024 13:00 EST [facility]ointment [facility] Radiology CT - [address] [address] documented as of this encounter Visit Diagnoses Diagnosis Surgery follow-up- Primary Follow-up examination, following unspecified surgery documented in this encounter Care Teams Real Estate Clerk Relationship Specialty Start Date End Date Linda Blancas MD [facility] [address] [place] [address] PCP - General 01/06/11 Adolfo Carreno MD [address] [place] [address], [facility] 2 [place] [phone] General Surgery 04/26/19 Augustina Colin MD PhD [address] [place] [address] 2 [place] [phone] Medical Oncology 04/26/19 documented as of this encounter
--- OUTSIDE RECORDS SUMMARY | 2024-03-20 14:56 | XMS_ITS | Encounter Summary ---
Author Organization [facility] Address [address] [place] [address] Care Team Providers Care Cvt Tech Name Role Phone Linda Blancas MD Primary Care Provider [phone] Adolfo Carreno MD Unavailable [phone] Augustina Colin MD PhD Unavailable Unavailable Encounter Details Date Type Department Care Team (Latest Contact Info) Description 09/16/2020 Travel Social History Tobacco Use Types Packs/Day [...] [facility] [address] [place] [address] [phone] 04/02/2024 15:15 EDT Office Visit [facility] Surgical Oncology - [address] [phone] Adolfo Carreno MD [address] [place] [phone] 04/05/2024 9:30 EDT Telemedicine [facility] - [facility] Palliative Care Services [address] [place] [address] [phone] Chichi Woods MD [address] [place] [phone] 04/11/2024 15:00 EDT Telemedicine [facility] Hematology & Oncology [address] 834171 Alisson Carreon MD [address] [place] [phone] 04/13/2024 13:30 EDT Appointment [facility] Hematology & Oncology [address] [id number] 04/13/2024 14:00 EDT Appointment [facility] Hematology & Oncology [address] [id number] 04/16/2024 10:00 EST Telemedicine [facility] - [facility] Palliative Care Services [address] [place] [address] [phone] Chichi Woods MD [address] [place] [address], [address] [phone] 04/24/2024 9:00 EST Appointment [facility] Radiology CT Outpatient - [address] [id number] 04/24/2024 11:00 EST Appointment [facility] Breast Imaging - [facility] S [place] 1 [place], [place] 836701 04/27/2024 12:00 EST Appointment [facility] Hematology & Oncology - [address] 087771 05/02/2024 15:00 EST Telemedicine [facility] Hematology & Oncology - [address] [phone] Alisson Carreon MD [address] [place] [address], Level 2 [place] [phone] 05/04/2024 10:15 EST Ancillary Procedure [facility] Cardiology - [place] [address] [place] [address] 05/04/2024 11:30 EST Appointment [facility] Hematology & Oncology - [address] [id number] 05/04/2024 12:00 EST Appointment [facility] Hematology & Oncology [address] [phone] 06/12/2024 13:00 EST Appointment [facility] Center Radiology CT - [address] [phone] documented as of this encounter Visit Diagnoses Not on filedocumented in this encounter Care Teams Cvt Tech Relationship Specialty Start Date End Date Linda Blancas MD [facility] [address] [place] [address] PCP - General 01/06/11 Adolfo Carreno MD [address] [place] [address], [facility] 2 [place] [phone] General Surgery 04/26/19 Augustina Colin MD PhD [address] [place] [address], [facility] 2 [place] [phone] Medical Oncology 04/26/19 documented as of this encounter
--- OUTSIDE RECORDS SUMMARY | 2024-03-20 14:56 | XMS_ITS | Encounter Summary ---
Author Organization [facility] Address [address] [place] [address] Care Team Providers Care Tariff Expert Name Role Phone Linda Blancas MD Primary Care Provider [phone] Adolfo Carreno MD Unavailable [phone] Augustina Colin MD PhD Unavailable Unavailable Encounter Details Date Type Department Care Team (Late st Contact Info) Description 09/03/2020 Orders Only [facility] Radiology - Main [place] [address] [place] [address] Aman Myles MD [address] [place] [phone] Social History Tobacco Use Types Packs/Day [...] Contact Info) Description 04/02/2024 10:30 EDT Appointment [facility] Interventional Radiology Unit [address] [place] [address] [phone] 04/02/2024 15:15 EDT Office Visit [facility] Surgical Oncology - [address] [phone] Adolfo Carreno MD [address] [facility], [facility] 2 [place] [phone] 04/05/2024 9:30 EDT Telemedicine [facility] - [facility] Palliative Care Services [address] [place], [place] [phone] Chichi Woods MD [address] [place] [address], [address] [phone] 04/11/2024 15:00 EDT Telemedicine [facility] Hematology & Oncology - [address] [phone] Alisson Carreon MD [address] [place] [address], [facility] 2 [place] [phone] 04/13/2024 13:30 EDT Appointment [facility] Hematology & Oncology - [address] [id number] 04/13/2024 14:00 EDT Appointment [facility] Hematology & Oncology [address] [address] 04/16/2024 10:00 EST Telemedicine [facility] - [facility] Palliative Care Services [address] [place] [address] [phone] Chichi Woods MD [address] [place] [address], [address] [phone] 04/24/2024 9:00 EST Appointment [facility] Radiology CT Outpatient - [address] 580391 04/24/2024 11:00 EST Appointment [facility] Breast Imaging - [facility] S [place] 1 [place], [place] 608881 04/27/2024 12:00 EST Appointment [facility] Hematology & Oncology [address] 649461 05/02/2024 15:00 EST Telemedicine [facility] Hematology & Oncology [address] [phone] Alisson Carreon MD [address] [place] [address], Level [address] [place] [phone] 05/04/2024 10:15 EST Ancillary Procedure [facility] Cardiology - [place] [address] 05/04/2024 11:30 EST Appointment [facility] Hematology & Oncology [address] 988771 05/04/2024 12:00 EST Appointment [facility] Hematology & Oncology [address] [address] 06/12/2024 13:00 [facility] Radiology CT - [facility] [address] [place], [place] 494131 documented as of this encounter Visit Diagnoses Not on filedocumented in this encounter Care Teams Tariff Expert Relationship Specialty Start Date End Date Linda Blancas MD [facility] [address] [place] [address] PCP - General 01/06/11 Adolfo Carreno MD [address] [place] [address], [facility] 2 [place] [phone] General Surgery 04/26/19 Augustina Colin MD PhD [address] [place] [address], [facility] 2 [place] [phone] Medical Oncology 04/26/19 documented as of this encounter
--- OUTSIDE RECORDS SUMMARY | 2024-03-20 14:57 | XMS_ITS | Encounter Summary ---
Author Organization [facility] Address [address] [place] [address] Care Team Providers Care Sports Athletic Trainer Name Role Phone Linda Blancas MD Primary Care Provider [phone] Adolfo Carreno MD Unavailable [phone] Augustina Colin MD PhD Unavailable Unavailable Encounter Details Date Type Department Care Team (Latest Contact Info) Description 08/11/2020 Travel Social History Tobacco Use Types Packs/Day [...] have Coronavirus / COVID-19? No / Unsure 08/11/2020 8:42 EST documented as of this encounter Functional Status [...] [facility] Interventional Radiology Unit [address] [place] [address] 058451 04/02/2024 15:15 EDT Office Visit [facility] Surgical Oncology - [address] [phone] Adolfo Carreno MD [address] [place] [phone] 04/05/2024 9:30 EDT Telemedicine [facility] - [facility] Palliative Care Services [address] [place] [address] 859661 Chichi Woods MD [address] [place] [address] [phone] 04/11/2024 15:00 EDT Telemedicine [facility] Hematology & Oncology [address] 415551 Alisson Carreon MD [address] [place] [address] [phone] 04/13/2024 13:30 EDT Appointment [facility] Hematology & Oncology [address] 510481 04/13/2024 14:00 EDT Appointment [facility] Hematology & Oncology [address] 135171 04/16/2024 10:00 EST Telemedicine [facility] - [facility] Palliative Care Services [address] [place] [address] 237291 Chichi Woods MD [address] [place] [address], [address] [phone] 04/24/2024 9:00 EST Appointment [facility] Radiology CT Outpatient - [address] 432301 04/24/2024 11:00 EST Appointment [facility] Breast Imaging - [facility] S [place] 1 [place], [place] 987781 04/27/2024 12:00 EST Appointment [facility] Hematology & Oncology - [address] [phone] 05/02/2024 15:00 EST Telemedicine [facility] Hematology & Oncology - [address] [phone] Alisson Carreon MD [address] [place] [address], Level 2 [place] [phone] 05/04/2024 10:15 EST Ancillary Procedure [facility] Cardiology - [place] [address] 05/04/2024 11:30 EST Appointment [facility] Hematology & Oncology - [address] [id number] 05/04/2024 12:00 EST Appointment [facility] Hematology & Oncology [address] [phone] 06/12/2024 13:00 EST Appointment [facility] Radiology CT - [address] [phone] documented as of this encounter Visit Diagnoses Not on filedocumented in this encounter Care Teams Sports Athletic Trainer Relationship Specialty Start Date End Date Linda Blancas MD [facility] [address] [place] [address] PCP - General 01/06/11 Adolfo Carreno MD [address] [place] [address], [facility] 2 [place] [phone] General Surgery 04/26/19 Augustina Colin MD PhD [address] [place] [address], [facility] 2 [place] [phone] Medical Oncology 04/26/19 documented as of this encounter
--- OUTSIDE RECORDS SUMMARY | 2024-03-20 14:57 | XMS_ITS | Encounter Summary ---
Author Organization [facility] Address [address] [place] [address] Care Team Providers Care Physician Compensation Analyst Name Role Phone Linda Blancas MD Primary Care Provider [phone] Adolfo Carreno MD Unavailable [phone] Augustina Colin MD PhD Unavailable Unavailable Encounter Details Date Type Department Care Team (Late st Contact Info) Description 08/05/2020 Orders Only [facility] Hematology & Oncology - [facility] [address] [place] [address] Augustina Colin, PhD Social History Tobacco Use [...] or suspected to have Coronavirus / COVID-19? Yes 07/25/2020 12:43 EST documented as of this encounter Functional [...] Info) Description 04/02/2024 10:30 EDT Appointment [facility] Interventional Radiology Unit [address] [place] [address] [phone] 04/02/2024 15:15 EDT Office Visit [facility] Surgical Oncology - [address] [phone] Adolfo Carreno MD [address] [place] [address] 2 [place] [phone] 04/05/2024 9:30 EDT Telemedicine [facility] - [facility] Palliative Care Services [address] [place] [address] [phone] Chichi Woods MD [address] [place] [address] [phone] 04/11/2024 15:00 EDT Telemedicine [facility] Hematology & Oncology [address] [phone] Alisson Carreon MD [address] [place] [address] 2 [place] [phone] 04/13/2024 13:30 EDT Appointment [facility] Hematology & Oncology [address] [phone] 04/13/2024 14:00 EDT Appointment [facility] Hematology & Oncology - [address] [address] 04/16/2024 10:00 EST Telemedicine [facility] - [facility] Palliative Care Services [address] [place], [place] 792091 Chichi Woods MD 111 [facility], [address] [phone] 04/24/2024 9:00 EST Appointment [facility] Radiology CT Outpatient - [address] [address] 04/24/2024 11:00 EST Appointment [facility] Breast Imaging - [address] [id number] 04/27/2024 12:00 EST Appointment [facility] Hematology & Oncology - [address] 932151 05/02/2024 15:00 EST Telemedicine [facility] Hematology & Oncology - [address] [phone] Alisson Carreon MD [address] [place] [address], Level [address] [place] [phone] 05/04/2024 10:15 EST Ancillary Procedure [facility] Cardiology - [place] [address] 05/04/2024 11:30 EST Appointment [facility] Hematology & Oncology - [address] [address] 05/04/2024 12:00 EST Appointment [facility] Hematology & Oncology - [address] [address] 06/12/2024 13:00 EST Appointment [facility] Center Radiology CT - Main [address] [address] documented as of this encounter Visit Diagnoses Not on filedocumented in this encounter Care Teams Physician Compensation Analyst Relationship Specialty Start Date End Date Linda Blancas MD [facility] [address] [place] [address] PCP - General 01/06/11 Adolfo Carreno MD [address] [place] [phone] General Surgery 04/26/19 Augustina Colin MD PhD [address] [place] [phone] Medical Oncology 04/26/19 documented as of this encounter
--- OUTSIDE RECORDS SUMMARY | 2024-03-20 14:57 | XMS_ITS | Encounter Summary ---
Author Organization [facility] Address [address] [place] [address] Care Team Providers Care Veterinary Surgeon Name Role Phone Linda Blancas MD Primary Care Provider [phone] Adolfo aCrreno MD Unavailable [phone] Augustina Colin MD PhD Unavailable Unavailable Reason for Referral * Radiology Services (Routine) - Closed Specialty Diagnoses / Procedures Referred By Contac t Referred To Contact Radiology Diagnoses Personal history of malignant neoplasm of breast Procedures MR ABDOMEN W WO CONTRAST Augustina Colin, PhD Referral ID Status Reason Start Date Expiration Date Visits Re quested Visits Authorized [id number] Closed 08/11/2020 02/07/2021 1 1 Encounter Details Date Type Department Care Team (Late st Contact Info) Description 08/11/2020 Orders Only [facility] Center Hematology & Oncology - [address] [address] Carmen Pillai RN Personal history of malignant neoplasm of breast (Primary Dx) Social History Tobacco Use Types [...] Appointment [facility] Interventional Radiology Unit [address] [place] [address] [phone] 04/02/2024 15:15 EDT Office Visit [facility] Surgical Oncology - [address] [phone] Adolfo Carreno MD 111 [facility], Level 2 [place] [phone] 04/05/2024 9:30 EDT Telemedicine [facility] - [facility] Palliative Care Services [address], [place] [phone] Chichi Woods MD 111 [facility], [address] [phone] 04/11/2024 15:00 EDT Telemedicine [facility] Hematology & Oncology - Main [address] [phone] Alisson Carreon MD [address] [place] [address] 2 [place] [phone] 04/13/2024 13:30 EDT Appointment [facility] Hematology & Oncology - [address] [phone] 04/13/2024 14:00 EDT Appointment [facility] Hematology & Oncology - [address] [phone] 04/16/2024 10:00 EST Telemedicine [facility] - [facility] Palliative Care Services [address] [place] [address] [phone] Chichi Woods MD [address] [place] [address] [phone] 04/24/2024 9:00 EST Appointment [facility] Radiology CT Outpatient - [address] [id number] 04/24/2024 11:00 EST Appointment [facility] Breast Imaging - [facility] S [address] [id number] 04/27/2024 12:00 EST Appointment [facility] Hematology & Oncology - [address] [id number] 05/02/2024 15:00 EST Telemedicine [facility] Hematology & Oncology - [address] [phone] Alisson Carreon MD [address] [place] [address], [facility] 2 [place] [phone] 05/04/2024 10:15 EST Ancillary Procedure [facility] Cardiology - [address] [place], [place] [phone] 05/04/2024 11:30 EST Appointment [facility] Hematology & Oncology - [address] [address] 05/04/2024 12:00 EST Appointment [facility] Hematology & Oncology [address] [address] 06/12/2024 13:00 EST Appointment [facility] Radiology CT - [address] [address] documented as of this encounter Results * MR ABDOMEN W WO CONTRAST (08/12/2020 11:55 EST) Anatomical Region Laterality Modality Body, Abdomen Magnetic Resonan ce 08/12/2020 16:1 2 EST Impressions 08/12/2020 16:12 EST Interval disappearance of one of the previously described subcentimeter liver lesions, and decreased conspicuity of the left lobe lesion. Findings can be due to favorable response to therapy, correlate with history. Narrative 08/12/2020 16:12 EST MR ABDOMEN W WO CONTRAST ??08/12/2020 11:30 AM Signs and Symptoms/Comments: ?? Complex Patient Condition - See Comments. Breast cancer. ??. Technique: Rh-fbc-pcz-of-phase, T2-weighted, diffusion weighted images were followed by dynamic gadolinium enhanced T1 fat-suppressed gradient echo images of the abdomen. Gadavist was used as the contrast agent. Subtraction imaging performed. Comparison: MRI 02/19/2020 Findings: Lower chest: Bilateral breast implants noted. Hepatobiliary: The subcentimeter noncystic liver lesion seen at the posterior periphery of the right lobe on prior MRI is no longer visible, including on diffusion imaging, liver shows normal findings at this location. The subcentimeter noncystic lesion anterior periphery left lobe segment 2/3 is barely apparent, seen only as trace increased T2 signal (axial T2 fat sat #17) as well as trace increased signal on diffusion imaging (B800, #192), and focally reduced T1 signal, precontrast T1 fat sat #186. The postcontrast images in this region have essentially normalized.. Liver is otherwise within normal limits. Tiny hepatic left lobe cyst segment 4, postcontrast 125, stable. No new lesions. No hepatic steatosis. Gallbladder and biliary tree are within normal limits. Spleen, pancreas, adrenal glands: Normal. Kidneys, proximal ureters: Normal. Bowel: Normal as far as included. Peritoneal cavity: No free fluid within the abdomen. Lymphovascular: No abdominal adenopathy. Abdominal wall: Free of hernias. Musculoskeletal: Artifact from lumbosacral spinal fusion hardware. Localizer: No additional findings Procedure Note Pavan Ceron MD - 08/12/2020 MR ABDOMEN W WO CONTRAST 08/12/2020 11:30 AM Signs and Symptoms/Comments: Complex Patient Condition - See Comments. Breast cancer. . Technique: Et-lce-ffz-of-phase, T2-weighted, diffusion weighted images were followedby dynamic gadolinium enhanced T1 fat-suppressed gradient echo images ofthe abdomen. Gadavist was used as the contrast agent. Subtraction imagingperformed. Comparison: MRI 02/19/2020 Findings: Lower chest: Bilateral breast implants noted. Hepatobiliary: The subcentimeter noncystic liver lesion seen at theposterior periphery of the right lobe on prior MRI is no longer visible,including on diffusion imaging, liver shows normal findings at thislocation. The subcentimeter noncystic lesion anterior periphery left lobe segment2/3 is barely apparent, seen only as trace increased T2 signal (axial T2fat sat #17) as well as trace increased signal on diffusion imaging (B800,#192), and focally reduced T1 signal, precontrast T1 fat sat #186. Thepostcontrast images in this region have essentially normalized.. Liver is otherwise within normal limits. Tiny hepatic left lobe cystsegment 4, postcontrast 125, stable. No new lesions. No hepaticsteatosis. Gallbladder and biliary tree are within normal limits. Spleen, pancreas, adrenal glands: Normal. Kidneys, proximal ureters: Normal. Bowel: Normal as far as included. Peritoneal cavity: No free fluid within the abdomen. Lymphovascular: No abdominal adenopathy. Abdominal wall: Free of hernias. Musculoskeletal: Artifact from lumbosacral spinal fusion hardware. Localizer: No additional findings IMPRESSION Interval disappearance of one of the previously described subcentimeterliver lesions, and decreased conspicuity of the left lobe lesion. Findingscan be due to favorable response to therapy, correlate with history. Augustina Colin MD PhD IMG MRI ORDERABLES documented in this encounter Visit Diagnoses Diagnosis Personal history of malignant neoplasm of breast- Primary Personal history of malignant neoplasm of breast documented in this encounter Care Teams Veterinary Surgeon Relationship Specialty Start Date End Date Linda Blancas MD [facility] [address] [place] [address] PCP - General 01/06/11 Adolfo Carreno MD [address] [place] [address] 2 [place] [phone] General Surgery 04/26/19 Augustina Colin MD PhD [address] [place] [address], [facility] 2 [place] [phone] Medical Oncology 04/26/19 documented as of this encounter
--- OUTSIDE RECORDS SUMMARY | 2024-03-20 14:57 | XMS_ITS | Encounter Summary ---
Author Organization [facility] Address [address] [place] [address] Care Team Providers Care Asset Recovery Specialist Name Role Phone Linda Blancas MD Primary Care Provider [phone] Adolfo Carreno MD Unavailable [phone] Augustina Colin MD PhD Unavailable Unavailable Encounter Details Date Type Department Care Team (Late st Contact Info) Description 08/11/2020 Orders Only [facility] Cancer Center Hematology & Oncology - [facility] [address] [place] [address] Hetal Tan, RN [address] [place] [address] Social History Tobacco Use Types Packs/Day Years [...] [facility] Interventional Radiology Unit [address] [place] [address] [phone] 04/02/2024 15:15 EDT Office Visit [facility] Surgical Oncology - [address] [phone] Adolfo Carreno MD [address] [place] [phone] 04/05/2024 9:30 EDT Telemedicine [facility] Palliative Care Services [address] [place] [address] [phone] Chichi Woods MD [address] [place] [address] [phone] 04/11/2024 15:[address] [facility] Hematology & Oncology - [address] [phone] Alisson Carreon MD [address] [place] [phone] 04/13/2024 13:[address] [facility] Hematology & Oncology - [address] [id number] 04/13/2024 14:[address] [facility] Hematology & Oncology - [address] [address] 04/16/2024 10:[address] [facility] - [facility] Palliative Care Services [address] [place] [address] [phone] Chichi Woods MD 111 [facility], [address] [phone] 04/24/2024 9:00 EST Appointment [facility] Radiology CT Outpatient - [address] [address] 04/24/2024 11:00 EST Appointment [facility] Breast Imaging - [facility] S [address] 111011 04/27/2024 12:[address] [facility] Hematology & Oncology - [address] [phone] 05/02/2024 15:[address] [facility] Hematology & Oncology [address] [phone] Alisson Carreon MD [address] [place] [address], Level 2 [place] [phone] 05/04/2024 10:15 EST Ancillary Procedure [facility] Cardiology - [place] [address] 05/04/2024 11:[address] [facility] Hematology & Oncology [address] [address] 05/04/2024 12:[address] [facility] Hematology & Oncology - [address] [phone] 06/12/2024 13:00 EST [facility]ointment [facility] Rad[facility] - [address] [address] documented as of this encounter Visit Diagnoses Not on filedocumented in this encounter Care Teams Asset Recovery Specialist Relationship Specialty Start Date End Date Linda Blancas MD [facility] [address] [place] [address] PCP - General 01/06/11 Adolfo Carreno MD [address] [place] [address], [facility] 2 [place] [phone] General Surgery 04/26/19 Augustina Colin MD PhD [address] [place] [address], [facility] 2 [place] [phone] Medical Oncology 04/26/19 documented as of this encounter
--- OUTSIDE RECORDS SUMMARY | 2024-03-20 14:57 | XMS_ITS | Encounter Summary ---
Author Organization [facility] Address [address] [place] [address] Care Team Providers Care Paperhanger And Painter Name Role Phone Linda Blancas MD Primary Care Provider [phone] Adolfo Carreno MD Unavailable [phone] Augustina Colin MD PhD Unavailable Unavailable Reason for Visit * Reason Comments Follow-up Encounter Details Date Type Department Care Team (Late st Contact Info) Description 08/06/2020 9:30 EST Office Visit [facility] Cancer Center Hematology & Oncology - Main [place] [address] [place], [place] [address] Augustina Colin, MD PhD Malignant neoplasm of [...] 12:43 EST documented as of this encounter Last Filed Vital Signs Vital Sign Reading Time Taken Comments Blood Pressure 143/94 08/06/2020 0858 EST Pulse 85 08/06/2020 0858 EST Temperature 36.4 ??C (97.5 ??F) 08/06/2020 0858 EST Respiratory Rate 16 08/06/2020 0858 EST Oxygen Saturation 100% 08/06/2020 0858 EST Inhaled Oxygen Concentration - - Weight 61.2 kg (135 lb) 08/06/2020 0858 EST Height - - Body Mass Index 25.09 05/14/2020 1124 EST documented in this encounter Functional Status [...] Progress Notes * Augustina Colin MD - 08/06/2020 0930 EST REASON FOR OFFICE VISIT: ??Discussion of side effects related to anti estrogen therapy ? PROBLEM LIST: 1. 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 a. ??Ultrasound performed in [place]??identifying an irregular heterogeneous soft tissue mass measuring 1.2 x 1.2 x 1.5 cm. ?? 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 ??HER-2 1+ by IHC. ??ANNE MARIE revealed [...] breast tumor 07/07/17 and placement of tissue safe deposit attendant. ??1.9 cm tumor at time of surgery, well differentiated, with LVI present, and negative margins. ?? G. Biopsy left cervical LN 02/11/20 - consistent with metastatic adenocarcinoma consistent with breast primary H. Faslodex initiated 03/06/20; abemaciclib initiated 03/31/20 2. ??Restaging scans: ??CT scan of the chest completed 01/18/20 Enlarging left cervical lymph node with otherwise no lymph node enlargement. Multiple new tiny upper zone nodules are likely inflammatoryrather than metastatic; CT A/P New tiny hypoattenuating lesion within the liver. MRI Abdomen 02/19/20: tiny subcapsular lesions in segments 2 and 8 are difficult to characterize due to small size. Lesions are indeterminant. Metastatic disease cannot be excluded Nuclear bone scan??01/18/20: New focal increased uptake involving the left femoral neck, which may represent new or growing intraosseous geode ; metastases are not entirely excluded. 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 3. ??DCIS in 2004 at the [...] 7. ??Other chronic health issues: ??gastroesophageal reflux disease. ?? SUBJECTIVE: ??Ms Eldridge presents to clinic to discuss side effects related to faslodex. Faslodex was delayed due to a diagnosis of COVID. She continued abemacilib for a while when she was in [place]. She discontinued it during her episode with Covid. She even prior to Covid was having significant problems with diarrhea. Taking an antidiarrheal decreased it to twice a day but it still was significant diarrhea. She is reluctant to restart that medication. She also notes that she is due for restaging scans including the MRI of the liver. She tolerates the Faslodex when she gets it. She has noticed that her hot flashes are a little bit worse since her Covid diagnosis. She also tolerates Zometa when she receives that and is willing to continue it twice a year. She was diagnosed with Covid the beginning of June. She was hospitalized for several days. She has been out of quarantine only since last Tuesday. ROS: A 10 point review of systems was obtained. Other than described in the subjective she has no concerns or issues. Medications Prior to Today's Visit Medication Sig ??? abemaciclib 150 mg tablet Take 150 mg by mouth every 12 hours. ??? acetaminophen (TYLENOL) 325 mg tablet Take [...] then take 2 tabs daily for maintenance. ??? DOXYLAMINE SUCCINATE (UNISOM ORAL) Take by [...] FORMULA ORAL) Take by mouth daily. ??? mv-mn/C/glutamin/lysin/iqpk283 (AIR[place]ORNE, ASCORBATE SODIUM, ORAL) Take by mouth [...] this visit. Estimated body mass index is 25.65 kg/m?? as calculated from the following: Height as of 05/14/20: 156.2 cm (61.5). Weight as of 06/08/20: 62.6 kg (138 lb). ECOG Performance Status: 0 General: Comfortable, cooperative and in no apparent distress NEURO: Alert and oriented x 3; Grossly neurologically intact DIAGNOSTIC DATA No visits with results within 1 Day(s) from this visit. Latest known visit with results is: Phlebotomy Only on 05/26/2020 Component Date Value Ref Range Status ??? Sodium 05/26/2020 142 136 - 145 mEq/L Final ??? Potassium 05/26/2020 4.1 3.5 - 5.0 mEq/L Final ??? Chloride 05/26/2020 107 96 - 110 mEq/L Final ??? CO2 Total 05/26/2020 27 22 - 32 mEq/L Final ??? Glucose 05/26/2020 108* 70 - 100 mg/dL Final ??? BUN 05/26/2020 17 10 - 26 mg/dL Final ??? Creatinine 05/26/2020 0.87 0.52 - 1.04 mg/dL Final ? ? eGFR 05/26/2020 74 >60 mL/min/1.73m2 Final eGFR calculated using CKD-EPI equation for non- Americans. Multiply eGFR by 1.16 for AfricanAmerican patients. ??? Total Protein 05/26/2020 6.9 6.3 - 8.2 g/dL Final ??? Albumin 05/26/2020 4.0 3.4 - 4.9 g/dL Final ??? Alkaline Phosphatase 05/26/2020 71 38 - 126 U/L Final ??? AST 05/26/2020 33 15 - 46 U/L Final ? ? ALT 05/26/2020 21 <35 U/L Final ? ? Bilirubin, Total 05/26/2020 0.9 <1.4 mg/dL Final ??? Calcium 05/26/2020 9.2 8.5 - 10.5 mg/dL Final ??? Calculated Calcium 05/26/2020 9.2 8.5 - 10.5 mg/dL Final ??? Magnesium 05/26/2020 2.2 1.7 - 2.8 mg/dL Final ASSESSMENT: ??Ms Bernstein is a 59-year-old female with metastatic breast cancer.?? She startedon faslodex fall with abemaciclib added in March 2020. Because there has been almost a 2-month delay in Faslodex we will reload the Faslodex doses. She will receive 500 mg today again in 2 weeks and then 2 weeks after that. She will hold the abemaciclib for now. We will obtain restaging scans. If it looks that there is a slight progression we would consider adding palbociclib as she tolerated that better at the 100 mg dosage. She is also due for q 6mo zolendronic acid and will receiveit today. She takes a vitamin D supplement and we have encouraged weight bearing exercise. PLAN: 1. Faslodex 500mg today, in two weeks and again two weeks after that 2. Hold Abemaciclib 3. Zoledronic acid today and every 6 months. Next due January 2021 4. Restaging scans to include CT scan of the chest, MRI of the liver and a nuclear bone scan 5.??Continued follow-up with Dr. Carreno and Dr Boss 6. FUR 1 mo after scans are obtained ? Patient is encouraged call with any intercurrent concerns or problems. Augustina Colin MD 03/18/2020 19:40 documented in this encounter Plan of Treatment Upcoming Encounters Date Type Department Care Team (Late st Contact Info) Description 04/02/2024 10:30 EDT Appointment [facility] Interventional Radiology Unit [address] [place] [phone] 04/02/2024 15:15 EDT Office Visit [facility] Surgical Oncology - [address] [phone] Adolfo Carreno MD [address] [place] [address] 2 [place] [phone] 04/05/2024 9:30 EDT Telemedicine [facility] - [facility] Palliative Care Services [address] [place] [address] [phone] Chichi Woods MD [address] [place] [address], [address] [phone] 04/11/2024 15:00 EDT Telemedicine [facility] Hematology & Oncology - [address] [phone] Alisson Carreon MD [address] [place] [address] 2 [place] [phone] 04/13/2024 13:30 EDT Appointment [facility] Hematology & Oncology - [address] [phone] 04/13/2024 14:00 EDT Appointment [facility] Hematology & Oncology - [address] [phone] 04/16/2024 10:00 EST Telemedicine [facility] - [facility] Palliative Care Services [address] [place] [address] [phone] Chichi Woods MD [address] [place] [address], [address] [phone] 04/24/2024 9:00 EST Appointment [facility] Radiology CT Outpatient - [address] [phone] 04/24/2024 11:00 EST Appointment [facility] Breast Imaging - [facility] S [address] [phone] 04/27/2024 12:00 EST Appointment [facility] Hematology & Oncology - [address] [phone] 05/02/2024 15:00 EST Telemedicine [facility] Hematology & Oncology - [address] [phone] Alisson Carreon MD [address] [place] [address], Level [address] [place] [phone] 05/04/2024 10:15 EST Ancillary Procedure [facility] Cardiology - [address] [place], [place] [phone] 05/04/2024 11:30 EST Appointment [facility] Hematology & Oncology - [address] [address] 05/04/2024 12:00 EST Appointment [facility] Cancer Center Hematology & Oncology - [address] [address] 06/12/2024 13:00 EST [facility]ointment [facility] Radiology CT - [address] [address] documented as of this encounter Visit Diagnoses Diagnosis Malignant neoplasm of right female breast, unspecified estrogen receptor status, unspecified site of breast (HCC-CMS) documented in this encounter Orders Appointment Requests Count Last Ordered Date Fi rst Ordered Date [facility] CLINIC APPOINTMENT REQUEST 1 021 documented in this encounter Care Teams Paperhanger And Painter Relationship Specialty Start Date End Date Linda Blancas MD [address] [place] [address] 30 [place] [address] PCP - General 01/06/11 Adolfo Carreno MD [address] [place] [phone] General Surgery 04/26/19 Augustina Colin MD PhD [address] [place] [phone] Medical Oncology 04/26/19 documented as of this encounter
--- OUTSIDE RECORDS SUMMARY | 2024-03-20 14:57 | XMS_ITS | Encounter Summary ---
Author Organization [facility] Address [address] [place] [address] Care Team Providers Care Wheelchair Rental Clerk Name Role Phone Linda Blancas MD Primary Care Provider [phone] Adolfo Carreno MD Unavailable [phone] Augustina Colin MD PhD Unavailable Unavailable Reason for Visit * Reason Onset Date Comments COVID-19 08/10/2020 Encounter Details Date Type Department Care Team (Late st Contact Info) Description 08/10/2020 Telephone [facility] [address] [place] [address] Tylor Boss MD [address] [place] [phone] COVID-19 Social History Tobacco Use Types Packs/Day [...] encounter Miscellaneous Notes * Telephone Encounter - Don Deluca - 08/10/2020 1742 EST PT prefers testing at [facility]. PT has been informed of dates they must be tested on and isawaiting a call to schedule. Lab order and cover sheet have been faxed. documented in this encounter Plan of Treatment Upcoming Encounters Date Type Department Care Team (Late st Contact Info) Description 04/02/2024 10:30 EDT Appointment [facility] Interventional Radiology Unit [address] [place] [address] [phone] 04/02/2024 15:15 EDT Office Visit [facility] Surgical Oncology - [facility] [address] [place], [place] 1060[address] Adolfo Carreno MD 111 [facility], Level 2 [place] [phone] 04/05/2024 9:30 EDT Telemedicine [facility] - [facility] Palliative Care Services [address] [place], [place] [phone] Chichi Woods MD 111 [facility], [address] [phone] 04/11/2024 15:00 EDT Telemedicine [facility] Hematology & Oncology - [address] [phone] Alisson Carreon MD [address] [place] [address], [facility] 2 [place] [phone] 04/13/2024 13:30 EDT Appointment [facility] Hematology & Oncology - [address] [phone] 04/13/2024 14:00 EDT Appointment [facility] Hematology & Oncology [address] [phone] 04/16/2024 10:00 EST Telemedicine [facility] - [facility] Palliative Care Services [address] [place] [phone] Chichi Woods MD [address] [place] [address], [address] [phone] 04/24/2024 9:00 EST Appointment [facility] Radiology CT Outpatient - [address] [phone] 04/24/2024 11:00 EST Appointment [facility] Breast Imaging - [address] [phone] 04/27/2024 12:00 EST Appointment [facility] Hematology & Oncology - [address] [phone] 05/02/2024 15:00 EST Telemedicine [facility] Hematology & Oncology - [address] [phone] Alisson Carreon MD [address] [place] [address], [facility] 2 [place] [phone] 05/04/2024 10:15 EST Ancillary Procedure [facility] Cardiology - [address] [place] [address] 05/04/2024 11:30 EST Appointment [facility] Hematology & Oncology [address] [address] 05/04/2024 12:00 EST Appointment [facility] Hematology & Oncology [address] [phone] 06/12/2024 13:00 EST Appointment [facility] Radiology CT - [address] [phone] documented as of this encounter Visit Diagnoses Not on filedocumented in this encounter Additional Health Concerns Infection Onset Date Last Indicated Resolved Time R/O COVID-19 12/12/2023 12/12/2023 12/12/2023 15:3 5 EDT R/O COVID-19 01/08/2024 01/08/2024 01/08/2024 18:2 6 EDT R/O COVID-19 01/16/2024 01/16/2024 01/16/2024 17:5 0 EDT documented as of this encounter Care Teams Wheelchair Rental Clerk Relationship Specialty Start Date End Date Linda Blancas MD [facility] [address] [place] [address] PCP - General 01/06/11 Adolfo Carreno MD [address] [place] [phone] General Surgery 04/26/19 Augustina Colin MD PhD [address] [place] [phone] Medical Oncology 04/26/19 documented as of this encounter
--- OUTSIDE RECORDS SUMMARY | 2024-03-20 14:57 | XMS_ITS | Encounter Summary ---
Author Organization [facility] Address [address] [place] [address] Care Team Providers Care Director Speech Language Name Role Phone Linda Blancas MD Primary Care Provider [phone] Adolfo Carreno MD Unavailable [phone] Augustina Colin MD PhD Unavailable Unavailable Encounter Details Date Type Department Care Team (Latest Contact Info) Description 09/01/2020 Travel Social History Tobacco Use Types Packs/Day [...] Contact Info) Description 04/02/2024 10:30 EDT Appointment [facility] Interventional Radiology Unit [address] [place] [address] [phone] 04/02/2024 15:15 EDT Office Visit [facility] Surgical Oncology - [address] [phone] Adolfo Carreno MD [address] [place] [phone] 04/05/2024 9:30 EDT Telemedicine [facility] - [facility] Palliative Care Services [address] [place] [address] [phone] Chichi Woods MD [address] [place] [phone] 04/11/2024 15:00 EDT Telemedicine [facility] Hematology & Oncology [address] [phone] Alisson Carreon MD [address] [place] [phone] 04/13/2024 13:30 EDT Appointment [facility] Hematology & Oncology [address] [phone] 04/13/2024 14:00 EDT Appointment [facility] Hematology & Oncology [address] [phone] 04/16/2024 10:00 EST Telemedicine [facility] - [facility] Palliative Care Services [address] [place] [address] [phone] Chichi Woods MD [address] [place] [address], [address] [phone] 04/24/2024 9:00 EST Appointment [facility] Radiology CT Outpatient - [address] [phone] 04/24/2024 11:00 EST Appointment [facility] Breast Imaging - [facility] [place] [address] [place], [place] 176491 04/27/2024 12:00 EST Appointment [facility] Hematology & Oncology - [address] [phone] 05/02/2024 15:00 EST Telemedicine [facility] Hematology & Oncology - [address] [phone] Alisson Carreon MD [address] [place] [address], Level 2 [place] [phone] 05/04/2024 10:15 EST Ancillary Procedure [facility] Cardiology [place] [place] [address] 05/04/2024 11:30 EST Appointment [facility] Hematology & Oncology - [address] [phone] 05/04/2024 12:00 EST Appointment [facility] Hematology & Oncology [address] [phone] 06/12/2024 13:00 EST Appointment [facility] Radiology CT - [address] [phone] documented as of this encounter Visit Diagnoses Not on filedocumented in this encounter Care Teams Director Speech Language Relationship Specialty Start Date End Date Linda Blancas MD [facility] [address] [place] [address] PCP - General 01/06/11 Adolfo Carreno MD [address] [place] [address], [facility] [place] [facility] 2 [place] [phone] General Surgery 04/26/19 Augustina Colin MD PhD [address] [place] [address], [facility] 2 [place] [phone] Medical Oncology 04/26/19 documented as of this encounter
--- OUTSIDE RECORDS SUMMARY | 2024-03-20 14:57 | XMS_ITS | Encounter Summary ---
Author Organization [facility] Address [address] [place] [address] Care Team Providers Care Cv Tech Name Role Phone Linda Blancas MD Primary Care Provider [phone] Adolfo Carreno MD Unavailable [phone] Augustina Colin MD PhD Unavailable Unavailable Reason for Referral * Radiology Services (Routine) - Closed Specialty Diagnoses / Procedures Referred By Contac t Referred To Contact Diagnoses Malignant neoplasm of right female breast, unspecified estrogen receptor status, unspecified site of breast ([facility]) Procedures CT CHEST W CONTRAST Augustina Colin MD PhD Referral ID Status Reason Start Date Expiration Date Visits Re quested Visits Authorized [id number] Closed 08/11/2020 02/07/2021 1 1 Reason for Visit * Radiology Services (Routine) - Closed Specialty Diagnoses / Procedures Referred By Contac t Referred To Contact Diagnoses Malignant neoplasm of right female breast, unspecified estrogen receptor status, unspecified site of breast ([facility]) Procedures CT CHEST W CONTRAST Augustina Colin MD PhD Referral ID Status Reason Start Date Expiration Date Visits Re quested Visits Authorized [id number] Closed 08/11/2020 02/07/2021 1 1 Encounter Details Date Type Department Care Team (Latest Contact Info) Description 08/11/2020 12:10 EST - 08/11/2020 23:59 EST [facility] Radiology CT - Main [place] [address] [place], [place] [phone] Malignant neoplasm of right female breast, unspecified estrogen receptor status, unspecified site of breast ([facility]) Discharge Disposition: Home or Self [...] Appointment [facility] Interventional Radiology Unit [address] [place] [address] [phone] 04/02/2024 15:15 EDT Office Visit [facility] Surgical Oncology - [address] [address] Adolfo Carreno MD [address] [place] [phone] 04/05/2024 9:30 EDT Telemedicine [facility] Palliative Care Services [address] [place] [address] [phone] Chichi Woods MD [address] [place] [address] [phone] 04/11/2024 15:00 EDT Telemedicine [facility] Hematology & Oncology - [address] [phone] Alisson Carreon MD [address] [place] [phone] 04/13/2024 13:30 EDT Appointment [facility] Hematology & Oncology [address] [phone] 04/13/2024 14:00 EDT Appointment [facility] Hematology & Oncology - [address] [phone] 04/16/2024 10:00 EST Telemedicine [facility] Palliative Care Services [address] [place] [address] [phone] Chichi Woods MD [address] [place] [address] [phone] 04/24/2024 9:00 EST Appointment [facility] Radiology CT Outpatient - [address] [address] 04/24/2024 11:00 EST Appointment [facility] Breast Imaging - [facility] [address] [place] [address] 04/27/2024 12:00 EST Appointment [facility] Hematology & Oncology [address] [address] 05/02/2024 15:00 EST Telemedicine [facility] Hematology & Oncology [address] [phone] Alisson Carreon MD [address] [place] [address], Level 2 [place] [phone] 05/04/2024 10:15 EST Ancillary Procedure [facility] Cardiology [place] [address] 05/04/2024 11:30 EST Appointment [facility] Hematology & Oncology [address] [phone] 05/04/2024 12:00 EST Appointment [facility] Hematology & Oncology [address] [phone] 06/12/2024 13:00 EST Appointment [facility] Radiology CT - [address] [phone] documented as of this encounter Procedures Procedure Name Priority Date/Time Associated Diagnosis Comments CT CHEST W CONTRAST Routine 08/11/2020 1 2:57 EST Malignant neoplasm of right female breast, unspecified estrogen receptor status, unspecified site of breast ([facility]) documented in this encounter Results * CT CHEST W CONTRAST (08/11/2020 12:57 EST) Anatomical Region Laterality Modality Chest Computed Tomogra phy 08/11/2020 14:4 9 EST Impressions 08/11/2020 14:49 EST 1. ??Interval decrease in size of the left lower cervical lymph node since the prior examination, with no new or enlarging lesions in the chest. 2. ??New, bilateral groundglass opacities in the lungs. This most likely is reflective of pneumonitis related to either immunotherapy or chemotherapy. Other diagnostic considerations include pulmonary infection if there are signs and symptoms of infection (consider atypical infection such as PJP pneumonia if the patient is immunosuppressed), and alveolar hemorrhage. 3. ??Scattered pulmonary nodules are not changed compared to the prior examination. 4. ??Prior right mastectomy. Bilateral breast prostheses. No new or enlarging lesions in the chest wall/axilla. Narrative 08/11/2020 14:[address] CHEST W CONTRAST ??08/11/2020 1:30 PM Clinical History/Comments: Breast cancer Technique: A single breath-hold helical CT acquisition [...] CT of the chest with contrast Comparison: 01/18/2020 Findings: Lower neck: Interval decrease in size of left cervical lymph node since the prior examination. Previously measured 1.4 x 1.1 cm and now measures 0.7 x 0.6 cm. Chest wall soft tissues: Prior right mastectomy and bilateral breast prostheses. No enlarged or enlarging axillary lymph nodes. Mediastinum and mariann: No enlarged mediastinal or hilar lymph nodes. Heart and mediastinal vasculature: ??There may be a tiny ventricular septal defect in the mid septum although this may not be a completely defect (likely of no significance). Large airways: ??No significant abnormalities. Lungs: ??Since the prior study, there are new, bilateral groundglass opacities involving the upper, mid and lower lungs and central and peripheral portions of the lungs. Small noncalcified nodules within the right upper lobe, right middle lobe and right lower lobe are not significantly changed compared to the prior examination. Likewise, A group of nodules within the left upper lobe (image 105) are not significantly changed compared to the prior study. No new nodules. Pleura: No abnormalities. Upper abdomen (limited to upper abdomen, not optimized for abdominal imaging): No abnormalities. Bones: ??Degenerative disc disease in the lower cervical and upper thoracic spine. No lytic or blastic bone lesions. Procedure Note Shady Fallon MD - 08/11/2020 CT CHEST W CONTRAST 08/11/2020 1:30 PM Clinical History/Comments: Breast cancer Technique: A single breath-[facility] with a reconstructed slice thicknessof 3 mm and retrospectively reconstructed 0.9 mm thick sections with 0.45mm overlapping intervals. The scans were obtained from the lung apicesthrough the bases during the intravenous administration of 70-100 cc [id number] mg% nonionic contrast injected at a rate of 2 cc/second. Scanswere reviewed on a dedicated PACS workstation for analysis. Exam description: CT of the chest with contrast Comparison: 01/18/2020 Findings: Lower neck: Interval decrease in size of left cervical lymph node sincethe prior examination. Previously measured 1.4 x 1.1 cm and now measures0.7 x 0.6 cm. Chest wall soft tissues: Prior right mastectomy and bilateral breastprostheses. No enlarged or enlarging axillary lymph nodes. Mediastinum and mariann: No enlarged mediastinal or hilar lymph nodes. Heart and mediastinal vasculature: There may be a tiny ventricular septaldefect in the mid septum although this may not be a completely defect(likely of no significance). Large airways: No significant abnormalities. Lungs: Since the prior study, there are new, bilateral groundglassopacities involving the upper, mid and lower lungs and central andperipheral portions of the lungs. Small noncalcified nodules within theright upper lobe, right middle lobe and right lower lobe are notsignificantly changed compared to the prior examination. Likewise, A groupof nodules within the left upper lobe (image 105) are not significantlychanged compared to the prior study. No new nodules. Pleura: No abnormalities. Upper abdomen (limited to upper abdomen, not optimized for abdominalimaging): No abnormalities. Bones: Degenerative disc disease in the lower cervical and upper thoracicspine. No lytic or blastic bone lesions. IMPRESSION 1. Interval decrease in size of the left lower cervical lymph node sincethe prior examination, with no new or enlarging lesions in the chest. 2. New, bilateral groundglass opacities in the lungs. This most likely isreflective of pneumonitis related to either immunotherapy or chemotherapy.Other diagnostic considerations include pulmonary infection if there aresigns and symptoms of infection (consider atypical infection such as PJPpneumonia if the patient is immunosuppressed), and alveolar hemorrhage. 3. Scattered pulmonary nodules are not changed compared to the priorexamination. 4. Prior right mastectomy. Bilateral breast prostheses. No new orenlarging lesions in the chest wall/axilla. Augustina Colin MD PhD IMG CT ORDERABLES documented in this encounter Visit Diagnoses Diagnosis Malignant neoplasm of right female breast, unspecified estrogen receptor status, unspecified site of breast ([facility]) documented in this encounter Administered Medications Inactive Administered Medications - up to 3 most recent administrations Medication Order MAR Action Action Date Dose Rate Site iohexoL (OMNIPAQUE 350) solution 100 mL 100 mL, intravenous, Once in imaging, 1 dose, Starting on Tue08/11/20 at 1244, Until Tue08/11/20 at 1257, Routine, Imaging Protocol Orders Given 08/11/2020 12:57 EST 51 mL documented in this encounter Care Teams Cv Tech Relationship Specialty Start Date End Date Linda Blancas MD [facility] [address] [place] [address] PCP - General 01/06/11 Adolfo Carreno MD [address] [place] [phone] General Surgery 04/26/19 Augustina Colin MD PhD [address] [place] [phone] Medical Oncology 04/26/19 documented as of this encounter
--- OUTSIDE RECORDS SUMMARY | 2024-03-20 14:57 | XMS_ITS | Encounter Summary ---
Author Organization [facility] Address [address] [place] [address] Care Team Providers Care Global Safety Officer Name Role Phone Linda Blancas MD Primary Care Provider [phone] Adolfo Carreno MD Unavailable [phone] Augustina Colin MD PhD Unavailable Unavailable Reason for Visit * Reason Comments Follow-up Encounter Details Date Type Department Care Team (Late st Contact Info) Description 08/11/2020 10:15 EST Office Visit [facility] Surgical Oncology - [address] [phone] Adolfo Carreno MD [address] [place] [address], [facility] [address] [place] [address] Routine cancer follow-up visit (Primary [...] 8:42 EST documented as of this encounter Last Filed Vital Signs Vital Sign Reading Time Taken Comments Blood Pressure - - Pulse - - Temperature 36.3 ??C (97.3 ??F) 08/11/2020 1019 EST Respiratory Rate - - Oxygen Saturation - [...] Progress Notes * Adolfo Carreno MD - 08/11/2020 1015 EST Sunshine Pleitez is a 60-year-old woman seen in follow-up for history of breast cancer. 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 She had a positive margin unfortunately and no additional treatments were given. Patient later developed a recurrence in 2016 at that site, this was invasive and was found to have a distant metastatic disease as well. She was treated with preoperative endocrine therapy subsequently underwent excision of that area with a new implant reconstruction. Patient's been on endocrine therapy and on her last visit was found to have enlargement of the lymph node in her left neck. FNA showed this to be metastatic disease. Patient's regimen has been changed and that she is now on Faslodex and abemaciclib.. She had to stop treatments in June when she came down with a bout of Covid. It took her a while to recover from that. Patient seen here in follow-up and is doing relatively well and has no complaints. On exam today the patient is in no acute distress, there is no scleral icterus, there is no palpable cervical or supraclavicular lymph nodes. There is no palpable nodule in the thyroid gland, no carotid bruits or JVD were noted. Her lungs are clear to auscultation, her heart has a regular rate and rhythm without S3-S4 murmurs. Breast exam reveals a mastectomy on the right with implant no other skin changes are noted. The right side is no palpable abnormality suspicious for recurrence, there is no palpable lymph nodes in the right axilla. Left breast has no discrete palpable abnormalities, there is no nipple discharge, there is no palpable lymph nodes in the left axilla. There is no abdominal masses, no hepatosplenomegaly was noted. Ultrasound of the right mastectomy site shows no evidence of recurrent disease, there is no abnormal lymph nodes in the internal mammary or axillary region. The right neck had no abnormal lymph nodes. The left breast has no suspicious architectural changes, no solid or cystic abnormalities are seen, there is no abnormal lymph nodes in the internal mammary or in the axillary region. In the left neck the lymph node that had been seen in biopsy previously has decreased in size, currently measures 1.3 x 0.7 x 0.5 cm. No other abnormal lymph nodes are seen. Impression patient with recurrent breast cancer stage IV being managed on endocrine therapy. The disease in her left neck has been responding. She is undergoing additional staging studies to later today. We will plan to follow-up with myself in 6 months. documented in this encounter Plan of Treatment Upcoming Encounters Date Type Department Care Team (Late st Contact Info) Description 04/02/2024 10:30 EDT Appointment [facility] Interventional Radiology Unit [address] [place] [address] [id number] 04/02/2024 15:15 EDT Office Visit [facility] Surgical Oncology - [address] [phone] Adolfo Carreno MD 111 [facility], Level [address] [place] [phone] 04/05/2024 9:30 EDT Telemedicine [facility] Palliative Care Services [address] [place] [address] [phone] Chichi Woods MD [address] [place] [phone] 04/11/2024 15:00 EDT Telemedicine [facility] Hematology & Oncology - [address] 901221 Alisson Carreon MD [address] [place] [address], Level [address] [place] [phone] 04/13/2024 13:30 EDT Appointment [facility] Hematology & Oncology [address] [id number] 04/13/2024 14:00 EDT Appointment [facility] Hematology & Oncology [address] [id number] 04/16/2024 10:00 EST Telemedicine [facility] Palliative Care Services [address] [place] [address] [phone] Chichi Woods MD [address] [place] [address] [phone] 04/24/2024 9:00 EST Appointment [facility] Radiology CT Outpatient - [address] [id number] 04/24/2024 11:00 EST Appointment [facility] Breast Imaging - [address] [phone] 04/27/2024 12:00 EST Appointment [facility] Hematology & Oncology - [address] [phone] 05/02/2024 15:00 EST Telemedicine [facility] Hematology & Oncology [address] [phone] Alisson Carreon MD [address] [place] [address] 2 [place] [phone] 05/04/2024 10:15 EST Ancillary Procedure [facility] Cardiology - [address] [place], [place] [phone] 05/04/2024 11:30 EST Appointment [facility] Hematology & Oncology [address] [phone] 05/04/2024 12:00 EST Appointment [facility] Hematology & Oncology [address] [id number] 06/12/2024 13:00 EST Appointment [facility] Radiology CT - [address] [phone] documented as of this encounter Procedures Procedure Name Priority Date/Time Associated Diagnosis Comments ORDERS - SCANNED 11/17/2020 13:31 EDT documented in this encounter Results * ORDERS - SCANNED (11/17/2020 13:31 EDT) 11/17/2020 13:3 1 EDT Scan 2 [employer] Worker ADMISSION ORDERABLE S documented in this encounter Visit Diagnoses Diagnosis Routine cancer follow-up visit- Primary Other follow-up examination Personal history of breast cancer Personal history of malignant neoplasm of breast documented in this encounter Care Teams Global Safety Officer Relationship Specialty Start Date End Date Linda Blancas MD [facility] [address] [place] [address] PCP - General 01/06/11 Adolfo Carreno MD [address] [place] [address] [phone] General Surgery 04/26/19 Augustina Colin MD PhD [address] [place] [address] 2 [place] [address] Medical Oncology 04/26/19 documented as of this encounter
--- OUTSIDE RECORDS SUMMARY | 2024-03-20 14:57 | XMS_ITS | Encounter Summary ---
Author Organization [facility] Address [address] [place] [address] Care Team Providers Care Welder Name Role Phone Linda Blancas MD Primary Care Provider [phone] Adolfo Carreno MD Unavailable [phone] Augustina Colin MD PhD Unavailable Unavailable Reason for Visit * Reason Comments Injections Encounter Details Date Type Department Care Team (Latest Contact Info) Description 08/20/2020 13:16 EST - 08/20/2020 23:59 EST Hospital Encounter [facility] H[facility] & Oncology - Main [place] [address] [place] [address] Malignant neoplasm of right female breast, unspecified [...] Sign Reading Time Taken Comments Blood Pressure 153/77 08/20/2020 1341 EST Pulse 96 08/20/2020 1341 EST Temperature 36 ??C (96.8 ??F) 08/20/2020 1341 EST Respiratory Rate 16 08/20/2020 1341 EST Oxygen Saturation 100% 08/20/2020 1341 EST Inhaled Oxygen Concentration - - Weight [...] in this encounter Progress Notes * Griselda He, RN - 08/20/2020 1330 EST Sendy presents for Faslodex injections. She is feeling well today. Cycle 6 (technically a reload dose; 2 weeks from 08/06/20) Faslodex 500 mg given in 2 - 250 mg IM injections in left and right upper outer quadrant gluteal muscles without incident. Band aids applied to both sites. Patient Education Topic: Faslodex Method: Verbal Taught to: Patient Barriers: None Outcomes: verbalized understanding I was supervised by Dr Aguirre who was present and immediately available in the office suite. GRISELDA HE RN 08/20/2020 13:53 documented in this encounter Miscellaneous Notes * Addendum Note - Reta Kuhn - 08/20/2020 1330 ESTEncounter addended by: Reta Kuhn on: 09/11/2020 14:18 Actions taken: Charge Capture section accepted documented in this encounter Plan of Treatment Upcoming Encounters Date Type Department Care Team (Late st Contact Info) Description 04/02/2024 10:30 EDT Appointment [facility] Interventional Radiology Unit [address] [place] [address] [phone] 04/02/2024 15:15 EDT Office Visit [facility] Surgical Oncology - [address] [phone] Adolfo Carreno MD [address] [place] [address] 2 [place] [phone] 04/05/2024 9:30 EDT Telemedicine [facility] - [facility] Palliative Care Services [address] [place] [address] [phone] Chichi Woods MD [address] [place] [address] [phone] 04/11/2024 15:00 EDT Telemedicine [facility] Hematology & Oncology - [address] [phone] Alisson Carreon MD [address] [place] [address], [facility] 2 [place] [phone] 04/13/2024 13:30 EDT Appointment [facility] Hematology & Oncology - [address] [phone] 04/13/2024 14:00 EDT Appointment [facility] Hematology & Oncology [address] [phone] 04/16/2024 10:00 EST Telemedicine [facility] - [facility] Palliative Care Services [address] [place] [address] [phone] Chichi Woods MD [address] [place] [address], [address] [phone] 04/24/2024 9:00 EST Appointment [facility] Radiology CT Outpatient - [address] [id number] 04/24/2024 11:00 EST Appointment [facility] Breast Imaging - [facility] [place] [address] [place], [place] 329191 04/27/2024 12:00 EST Appointment [facility] Hematology & Oncology - [address] [phone] 05/02/2024 15:00 EST Telemedicine [facility] Hematology & Oncology [address] [phone] Alisson Carreon MD [address] [place] [address], [facility], Level [address] [place] [phone] 05/04/2024 10:15 EST Ancillary Procedure [facility] Cardiology - [place] [place] [address] 05/04/2024 11:30 EST Appointment [facility] Hematology & Oncology [address] [phone] 05/04/2024 12:00 EST Appointment [facility] Hematology & Oncology - [address] [phone] 06/12/2024 13:00 EST Appointment [facility] Radiology [facility] - [facility] [address] [place] [address] documented as of this encounter Visit Diagnoses Diagnosis Malignant neoplasm of right female breast, unspecified estrogen receptor status, unspecified site of breast (HCC-CMS)- Primary documented in this encounter Administered Medications Inactive Administered Medications - up to 3 most recent administrations Medication Order MAR Action Action Date Dose Rate Site fulvestrant (FASLODEX) injection 500 mg 500 mg, intramuscular, NOW X1, 1 dose, On Tue08/20/20 at 1345, Routine Given 08/20/2020 13:38 EST 500 mg documented in this encounter Orders Appointment Requests Count Last Ordered Date Fi rst Ordered Date ONCBCN INJECTION APPOINTMENT REQUEST 1 08/11 documented in this encounter Care Teams Welder Relationship Specialty Start Date End Date Linda Blancas MD [facility] [address] [place] [address] PCP - General 01/06/11 Adolfo Carreno MD [address] [place] [address] 2 [place] [phone] General Surgery 04/26/19 Augustina Colin MD PhD [address] [place] [address] 2 [place] [phone] Medical Oncology 04/26/19 documented as of this encounter
--- OUTSIDE RECORDS SUMMARY | 2024-03-20 14:57 | XMS_ITS | Encounter Summary ---
Author Organization [facility] Address [address] [place] [address] Care Team Providers Care Supply Chain Buyer Name Role Phone Linda Blancas MD Primary Care Provider [phone] Adolfo Carreno MD Unavailable [phone] Augustina Colin MD PhD Unavailable Unavailable Encounter Details Date Type Department Care Team (Late st Contact Info) Description 2020 Orders Only [facility] Radiology - Main [place] [address] [place], [place] 705861 Shady Fallon MD 111 [facility], Level 1 [place] [address] Metastatic breast cancer (HCC-CMS) (Primary Dx) Social [...] [facility] Interventional Radiology Unit [address] [place] [address] [phone] 04/02/2024 15:15 EDT Office Visit [facility] Surgical Oncology - [address] [phone] Adolfo Carreno MD [address] [place] [address] [phone] 04/05/2024 9:30 EDT Telemedicine [facility] - [facility] Palliative Care Services [address] [place] [address] [phone] Chichi Woods MD [address] [place] [address] [phone] 04/11/2024 15:00 EDT Telemedicine [facility] Hematology & Oncology - [address] [phone] Alisson Carreon MD [address] [place] [address] 2 [place] [phone] 04/13/2024 13:30 EDT Appointment [facility] Hematology & Oncology - [address] [phone] 04/13/2024 14:00 EDT Appointment [facility] Hematology & Oncology - [address] [phone] 04/16/2024 10:00 EST Telemedicine [facility] - [facility] Palliative Care Services [address] [place] [address] [phone] Chichi Woods MD [address] [place] [address] [phone] 04/24/2024 9:00 EST Appointment [facility] Radiology CT Outpatient - [address] [address] 04/24/2024 11:00 EST Appointment [facility] Breast Imaging - [facility] [place] 1 [place], [place] 580081 04/27/2024 12:00 EST Appointment [facility] Hematology & Oncology - [address] [phone] 05/02/2024 15:00 EST Telemedicine [facility] Hematology & Oncology - [address] [address] Alisson Carreon MD [address] [place] [address], Level 2 [place] [phone] 05/04/2024 10:15 EST Ancillary Procedure [facility] Cardiology - [place] [place] [address] 05/04/2024 11:30 EST Appointment [facility] Hematology & Oncology - [address] [phone] 05/04/2024 12:00 EST Appointment [facility] Hematology & Oncology - [address] [phone] 06/12/2024 13:00 EST Appointment [facility] Radiology CT - [address] [phone] documented as of this encounter Visit Diagnoses Diagnosis Metastatic breast cancer- Primary documented in this encounter Care Teams Supply Chain Buyer Relationship Specialty Start Date End Date Linda Blancas MD [facility] [address] [place] [address] PCP - General 01/06/11 Adolfo Carreno MD [address] [place] [address] [phone] General Surgery 04/26/19 Augustina Colin MD PhD [address] [place] [phone] Medical Oncology 04/26/19 documented as of this encounter
--- OUTSIDE RECORDS SUMMARY | 2024-03-20 14:57 | XMS_ITS | Encounter Summary ---
Author Organization [facility] Address [address] [place] [address] Care Team Providers Care Greige Goods Marker Name Role Phone Linda Blancas MD Primary Care Provider [phone] Adolfo Carreno MD Unavailable [phone] Augustina Colin MD PhD Unavailable Unavailable Reason for Referral * Radiology Services (Routine) - Closed Specialty Diagnoses / Procedures Referred By Doug hearn Referred To Contact Radiology Diagnoses Personal history of malignant neoplasm of breast Procedures MR ABDOMEN W WO Augustina Hollingsworth MD PhD Referral ID Status Reason Start Date Expiration Date Visits Re quested Visits Authorized [id number] Closed 08/11/2020 02/07/2021 1 1 Reason for Visit * Radiology Services (Routine) - Closed Specialty Diagnoses / Procedures Referred By Doug hearn Referred To Contact Radiology Diagnoses Personal history of malignant neoplasm of breast Procedures MR ABDOMEN W WO Augustina Hollingsworth MD PhD Referral ID Status Reason Start Date Expiration Date Visits Re quested Visits Authorized [id number] Closed 08/11/2020 02/07/2021 1 1 Encounter Details Date Type Department Care Team (Latest Contact Info) Description 08/12/2020 10:38 EST - 08/12/2020 23:59 EST Hospital Encounter [facility] Rad[facility] MRI - Main [place] [address] [place], [place] 308861 Personal history of malignant neoplasm of breast Discharge Disposition: Home [...] [facility] Interventional Radiology Unit [address] [place] [address] 04/02/2024 15:15 EDT Office Visit [facility] Surgical Oncology - [address] [phone] Adolfo Carreno MD [address] [place] [address] [phone] 04/05/2024 9:30 EDT Telemedicine [facility] Palliative Care Services [address] [place] [address] [phone] Chichi Woods MD [address] [place] [address] [phone] 04/11/2024 15:00 EDT Telemedicine [facility] Hematology & Oncology - [address] [phone] Alisson Carreon MD [address] [place] [address] [phone] 04/13/2024 13:30 EDT Appointment [facility] Hematology & Oncology - [address] [phone] 04/13/2024 14:00 EDT Appointment [facility] Hematology & Oncology - [address] [phone] 04/16/2024 10:00 EST Telemedicine [facility] Palliative Care Services [address] [place] [address] [phone] Chichi Woods MD [address] [place] [address] [phone] 04/24/2024 9:00 EST Appointment [facility] Radiology CT Outpatient - [address] [id number] 04/24/2024 11:00 EST Appointment [facility] Breast Imaging - [facility] 1 [place] [address] 04/27/2024 12:00 EST Appointment [facility] Hematology & Oncology [address] [address] 05/02/2024 15:00 EST Telemedicine [facility] Hematology & Oncology [address] [phone] Alisson Carreon MD [address] [place] [address], Level 2 [place] [phone] 05/04/2024 10:15 EST Ancillary Procedure [facility] Cardiology - [address] [place] [address] 05/04/2024 11:30 EST Appointment [facility] Hematology & Oncology [address] [phone] 05/04/2024 12:00 EST Appointment [facility] Hematology & Oncology [address] [phone] 06/12/2024 13:00 EST Appointment [facility] Radiology CT - [address] [phone] documented as of this encounter Procedures Procedure Name Priority Date/Time Associated Diagnosis Comments MR ABDOMEN W WO CONTRAST Routine 08/12/2020 11:55 EST Personal history of malignant neoplasm of breast documented in this encounter Results * MR [...] - See Comments. Breast cancer. ??. Technique: Iz-vyj-ssv-of-phase, T2-weighted, diffusion weighted images were followed by [...] - See Comments. Breast cancer. . Technique: Cz-uan-rmm-of-phase, T2-weighted, diffusion weighted images were followedby dynamic [...] Diagnosis Personal history of malignant neoplasm of breast documented in this encounter Administered Medications Inactive Administered Medications - up to 3 most recent administrations Medication Order MAR Action Action Date Dose Rate Site gadobutroL (GADAVIST PFS) solution solution 1-15 mmol 1-15 mmol (1-15 mL), intravenous, Once in imaging, 1 dose, Starting on Tue08/12/20 at 1154, Until Tue08/12/20 at 1154, Routine, Imaging Protocol Orders Given 08/12/2020 11:54 EST 6 mmol documented in this encounter Care Teams Greige Goods Marker Relationship Specialty Start Date End Date Linda Blancas MD [facility] [address] [place], [place] 810272 PCP - General 01/06/11 Adolfo Carreno MD [address] [place] [address] 2 [place] [phone] General Surgery 04/26/19 Augustina Colin MD PhD [address] [place] [address] 2 [place] [phone] Medical Oncology 04/26/19 documented as of this encounter
--- OUTSIDE RECORDS SUMMARY | 2024-03-20 14:57 | XMS_ITS | Encounter Summary ---
Author Organization [facility] Address [address] [place] [address] Care Team Providers Care Linux Administrator Name Role Phone Linda Blancas MD Primary Care Provider [phone] Adolfo Carreno MD Unavailable [phone] Augustina Colin MD PhD Unavailable Unavailable Encounter Details Date Type Department Care Team (Latest Contact Info) Description 08/25/2020 11:10 EDT - 08/25/2020 23:59 EDT Hospital Encounter [facility] Pre-Surgical Testing [address] [place], [place] [address] Discharge Disposition: Home or Self Care Social [...] - Inhaled Oxygen Concentration - - Weight 60.8 kg (134 lb) 08/25/2020 1153 EDT Height 156.2 cm (5' 1.5) 08/25/2020 1153 EDT Body Mass Index 24.91 08/25/2020 1153 EDT documented in this encounter [...] documented in this encounter Progress Notes * Emerita Aguiar, SHELLEY - 08/25/2020 1110 EDT COVID 19 Screening Perioperative at time of PAT Please document by exception (only check those that apply). Have you had any of the following symptoms recently? NO Yes Chronic ? Cough Shortness of breath [...] who has been diagnosed with Covid 19? No (close contact, within 6 feet of any person known to have Coronavirus in the past 14 days) Pt scheduled for her covid test on 09/04/20 at [facility]. Self isolation was discussed If patient develops any of these symptoms between now and their surgery date instruct them to call us back at [phone] to report symptoms (If patient is in [...] be allowed into Preop, OR, or PACU) documented in this encounter OR Notes * Preprocedure Instructions - Emerita Aguiar RN - 08/25/2020 1110 EDT Sunshine Pleitez has been instructed as follows regarding medication administration for the day of the scheduled procedure. Date of Surgery: 09/08/20 Instructions for Taking Medications Day of Surgery Medication Sig Last Dose Hold DOS Take DOS abemaciclib 150 mg tablet Take 150 mg by mouth every 12 hours. Patient not taking: Reported on 08/06/2020 Not taking acetaminophen (TYLENOL) 325 mg tablet Take 2 tablets by mouth every 4 hours as needed for Pain. Yes calcium-vitamin D (OS-CHAR D) 500 mg(1,250mg) -200 unit per tablet Take 1 Tab by mouth 2 times dailywith breakfast and dinner. Hold for 7 days prior to surgery diphenoxylate-atropine (LOMOTIL) 2.5-0.025 mg per tablet Take 2 tabs every 6 hours until control achieved, then take 2 tabs daily for maintenance. Patient not taking: Reported on 08/11/2020 Not taking DOXYLAMINE SUCCINATE (UNISOM ORAL) Take by mouth as needed. Takes half a tablet Yes gabapentin (NEURONTIN) 100 mg capsule Take 2 Caps by mouth 2 times daily. Patient taking differently: Take 600 mg by mouth 2 times daily. Takes 300 mg qam and pm and 600 mg qhs Yes ibuprofen (MOTRIN) 200 mg tablet Take 400 mg by mouth as needed. Hold for 3 days prior to surgery MULTIVITS W-CA,FE,OTHER MIN (WOMEN'S DAILY FORMULA ORAL) Take by mouth daily. Hold for 7 days priorto surgery mv-mn/C/glutamin/lysin/iwqb692 (A[place], ASCORBATE SODIUM, ORAL) Take by mouth as needed. Hold for7 days prior to surgery omeprazole (PRILOSEC) 20 mg capsule Take 20 mg by mouth daily. Yes ondansetron (ZOFRAN-ODT) 4 mg disintegrating tablet Take 1 Tab by mouth every 8 hours as needed forNausea. Post op drug RED YEAST RICE EXTRACT ORAL Take 1,200 mg by mouth daily. 600mg 2x a day Hold for 7 days prior to surgery valACYclovir (VALTREX) 500 mg tablet Take 1 Tab by mouth daily. yes venlafaxine (EFFEXOR-XR) 150 mg XR capsule Take 1 Cap by mouth daily. Yes zolpidem (AMBIEN) 5 mg tablet Take 5 mg by mouth at bedtime as needed for Sleep. Reported on 11/01/2016 No taking documented in this encounter Plan of Treatment Upcoming Encounters Date Type Department Care Team (Late st Contact Info) Description 04/02/2024 10:30 EDT Appointment [facility] Interventional Radiology Unit [address] [place] [address] [phone] 04/02/2024 15:15 EDT Office Visit [facility] Surgical Oncology - [address] [address] Adolfo Carreno MD [address] [place] [address] [address] [place] [phone] 04/05/2024 9:30 EDT Telemedicine [facility] [address] [place] [address] 010151 Chichi Woods MD [address] [place] [address] [phone] 04/11/2024 15:00 EDT Telemedicine [facility] Hematology & Oncology - [address] 708151 Alisson Carreon MD [address] [place] [address] [phone] 04/13/2024 13:30 EDT Appointment [facility] Hematology & Oncology - [address] [address] 04/13/2024 14:00 EDT Appointment [facility] Hematology & Oncology [address] 185871 04/16/2024 10:00 EST Telemedicine [facility] [address] [place] [address] [phone] Chichi Woods MD [address] [place] [address] [phone] 04/24/2024 9:[address] [facility] Radiology CT Outpatient - [address] [address] 04/24/2024 11:00 EST Appointment [facility] Breast Imaging - [facility] [place] [address] [place] [address] 04/27/2024 12:00 EST Appointment [facility] Hematology & Oncology - [address] [address] 05/02/2024 15:00 EST Telemedicine [facility] Hematology & Oncology - [address] [phone] Alisson Carreon MD [address] [place] [address] [phone] 05/04/2024 10:15 EST Ancillary Procedure [facility] Cardiology - [address] [place] [address] 05/04/2024 11:30 EST Appointment [facility] Hematology & Oncology - [address] 345301 05/04/2024 12:00 EST Appointment [facility] Hematology & Oncology - [address] [phone] 06/12/2024 13:[address] [facility] Radiology CT - [address] [phone] documented as of this encounter Visit Diagnoses Not on filedocumented in this encounter Care Teams Linux Administrator Relationship Specialty Start Date End Date Linda Blancas MD [address] [place] [address] [id number] PCP - General 01/06/11 Adolfo Carreno MD [address] [place] [address] [phone] General Surgery 04/26/19 Augustina Colin MD PhD [address] [place] [address], [facility] [address] [place] [phone] Medical Oncology 04/26/19 documented as of this encounter
--- OUTSIDE RECORDS SUMMARY | 2024-03-20 14:57 | XMS_ITS | Encounter Summary ---
Author Organization [facility] Address [address] [place] [address] Care Team Providers Care Oem Sales Manager Name Role Phone Linda Blancas MD Primary Care Provider [phone] Adolfo Carreno MD Unavailable [phone] Augustina Colin MD PhD Unavailable Unavailable Encounter Details Date Type Department Care Team (Late st Contact Info) Description 2020 Orders Only [facility] Radiology - Main [place] [address] [place] [address] Santo Arellano MD [address] [place] [phone] Social History Tobacco Use Types Packs/Day Years [...] Contact Info) Description 04/02/2024 10:30 EDT Appointment [facility] Interventional Radiology Unit [address] [place] [address] [phone] 04/02/2024 15:15 EDT Office Visit [facility] Surgical Oncology - [address] [phone] Adolfo Carreno MD [address] [facility] [address] [place] [phone] 04/05/2024 9:30 EDT Telemedicine [facility] Palliative [facility] [address] [place], [place] [phone] Chichi Woods MD [address] [place] [address], [address] [phone] 04/11/2024 15:00 EDT Telemedicine [facility] Hematology & Oncology - [address] [phone] Alisson Carreon MD [address] [place] [address], [facility] [address] [place] [phone] 04/13/2024 13:30 EDT Appointment [facility] Hematology & Oncology - [address] [phone] 04/13/2024 14:00 EDT Appointment [facility] Hematology & Oncology [address] [phone] 04/16/2024 10:00 EST Telemedicine [facility] [address] [place] [address] [phone] Chichi Woods MD [address] [place] [address], [address] [phone] 04/24/2024 9:00 EST Appointment [facility] Radiology CT Outpatient - [address] [id number] 04/24/2024 11:00 EST Appointment [facility] Breast Imaging - [facility] S [address] [phone] 04/27/2024 12:00 EST Appointment [facility] Hematology & Oncology [address] [phone] 05/02/2024 15:00 EST Telemedicine [facility] Hematology & Oncology [address] [phone] Alisson Carreon MD [address] [place] [address], Level [address] [place] [phone] 05/04/2024 10:15 EST Ancillary Procedure [facility] Cardiology [place] [place] [address] 05/04/2024 11:30 EST Appointment [facility] Hematology & Oncology [address] 136501 05/04/2024 12:00 EST Appointment [facility] Hematology & Oncology - [address] [address] 06/12/2024 13:00 [facility] Radiology CT - [facility] [address] [place], [place] 152681 documented as of this encounter Visit Diagnoses Not on filedocumented in this encounter Care Teams Oem Sales Manager Relationship Specialty Start Date End Date Linda Blancas MD [facility] [address] [place] [address] PCP - General 01/06/11 Adolfo Carreno MD [address] [place] [address], [facility] [address] [place] [phone] General Surgery 04/26/19 Augustina Colin MD PhD [address] [place] [address], [facility] [address] [place] [phone] Medical Oncology 04/26/19 documented as of this encounter
--- OUTSIDE RECORDS SUMMARY | 2024-03-20 14:57 | XMS_ITS | Encounter Summary ---
Author Organization [facility] Address [address] [place] [address] Care Team Providers Care Firmware Engineer Name Role Phone Linda Blancas MD Primary Care Provider [phone] Adolfo Carreno MD Unavailable [phone] Augustina Colin MD PhD Unavailable Unavailable Encounter Details Date Type Department Care Team (Latest Contact Info) Description 08/06/2020 8:42 EST - 08/06/2020 23:59 EST Hospital Encounter [facility] Hematology & Oncology - Main [place] [address] [place], [place] [phone] Malignant neoplasm of right female breast, unspecified [...] Progress Notes * Elyse Álvarez RN - 08/06/2020 1000 EST 08/06/20 Short stay note. 24 G PIV placed in left arm. Zometa infused for 20 minutes as pt denies flu-like symptoms or other s/e post Zometa. Zometa will be Q 6 months, per Dr. Colin' note. Faslodex has been on hold while the pt recovers from Covid-19; therefore 500mg Faslodex was administered to bilateral ventral gluteal muscles. Band aids were applied. Pt tolerated well. Pt will RTC in 2 weeks for Faslodex 500mg, then monthly. I was supervised by Dr. Colin who was present and immediately available in the office suite. ELYSE ÁLVAREZ RN 08/19/2020 9:36 documented in this encounter Plan of Treatment Upcoming Encounters Date Type Department Care Team (Late st Contact Info) Description 04/02/2024 10:30 EDT Appointment [facility] Interventional Radiology Unit [address] [place] [address] [phone] 04/02/2024 15:15 EDT Office Visit [facility] Surgical Oncology - [address] [phone] Adolfo Carreno MD [address] [place] [address] [phone] 04/05/2024 9:30 EDT Telemedicine [facility] [address] [place] [address] [phone] Chichi Woods MD [address] [place] [address] [phone] 04/11/2024 15:00 EDT Telemedicine [facility] Hematology & Oncology - [address] 161491 Alisson Carreon MD [address] [place] [address] [phone] 04/13/2024 13:30 EDT Appointment [facility] Hematology & Oncology - [address] [phone] 04/13/2024 14:00 EDT Appointment [facility] Hematology & Oncology [address] [phone] 04/16/2024 10:00 EST Telemedicine [facility] [address] [place] [address] [phone] Chichi Woods MD [address] [place] [address] [phone] 04/24/2024 9:00 EST Appointment [facility] Radiology CT Outpatient - [address] [id number] 04/24/2024 11:00 EST Appointment [facility] Breast Imaging - [facility] [place] [address] [place] [address] 04/27/2024 12:00 EST Appointment [facility] Hematology & Oncology - [address] [address] 05/02/2024 15:00 EST Telemedicine [facility] Hematology & Oncology - [address] [phone] Alisson Carreon MD [address] [place] [address], Level [address] [place] [phone] 05/04/2024 10:15 EST Ancillary Procedure [facility] Cardiology - [address] [place] [address] 05/04/2024 11:30 EST Appointment [facility] Hematology & Oncology - [address] [phone] 05/04/2024 12:00 EST Appointment [facility] Hematology & Oncology [address] [phone] 06/12/2024 13:00 EST Appointment [facility] Radiology CT - [address] [phone] documented as of this encounter Visit Diagnoses Diagnosis Malignant neoplasm of right female breast, unspecified estrogen receptor status, unspecified site of breast ([facility])- Primary Osteopenia of necks of both femurs documented in this encounter Administered Medications Inactive Administered Medications - up to 3 most recent administrations Medication Order MAR Action Action Date Dose Rate Site zoledronic acid (ZOMETA) IVPB 4 mg 4 mg, intravenous, Administer over 20 Minutes, NOW X1, 1 dose, On Tue08/06/20 at 1045, Routine New Bag 08/06/2020 10:30 EST 4 mg documented in this encounter Orders Medications Ordered That Vj ht Not Have Been Administered Count Last Ordered Date First Ordered Date fulvestrant (FASLODEX) injection 500 mg 1 0 08/06/2020 documented in this encounter Care Teams Firmware Engineer Relationship Specialty Start Date End Date Linda Blancas MD [address] [place] [address] PCP - General 01/06/11 Adolfo Carreno MD [address] [place] [address] 2 [place] [phone] General Surgery 04/26/19 Augustina Colin MD PhD [address] [place] [address] 2 [place] [phone] Medical Oncology 04/26/19 documented as of this encounter
--- OUTSIDE RECORDS SUMMARY | 2024-03-20 14:57 | XMS_ITS | Encounter Summary ---
Author Organization [facility] Address [address] [place] [address] Care Team Providers Care Director Biostatistics Name Role Phone Linda Blancas MD Primary Care Provider [phone] Adolfo Carreno MD Unavailable [phone] Augustina Colin MD PhD Unavailable Unavailable Reason for Referral * Radiology Services (Routine) - Closed Specialty Diagnoses / Procedures Referred By [facility] Referred To Contact Nuclear Medicine Diagnoses Malignant neoplasm of right female breast, unspecified estrogen receptor status, unspecified site of breast ([facility]) Procedures NM BONE WHOLE BODY Augustina Colin MD PhD Referral ID Status Reason Start Date Expiration Date Visits Re quested Visits Authorized [id number] Closed 2020 1 1 Reason for Visit * Radiology Services (Routine) - Closed Specialty Diagnoses / Procedures Referred By [facility] Referred To Contact Nuclear Medicine Diagnoses Malignant neoplasm of right female breast, unspecified estrogen receptor status, unspecified site of breast ([facility]) Procedures NM BONE WHOLE BODY Augustina Colin MD PhD Referral ID Status Reason Start Date Expiration Date Visits Re quested Visits Authorized [id number] Closed 2020 1 1 Encounter Details Date Type Department Care Team (Latest Contact Info) Description 08/11/2020 8:45 EST - 08/11/2020 8:47 EST Hospital Encounter [facility] Radiology Nuclear Medicine and PET - [facility] [address] [place], [place] 098[address] Malignant neoplasm of right female breast, unspecified estrogen receptor status, unspecified site of breast ([facility]) Discharge Disposition: Home or [...] Info) Description 04/02/2024 10:30 EDT Appointment [facility] Interventional Radiology Unit [address] [place] [address] [phone] 04/02/2024 15:15 EDT Office Visit [facility] Surgical Oncology - [address] [address] Adolfo Carreno MD [address] [place] [address] [phone] 04/05/2024 9:30 EDT Telemedicine [facility] Palliative Care Services [address] [place] [address] [phone] Chichi Woods MD [address] [place] [address] [phone] 04/11/2024 15:00 EDT Telemedicine [facility] Hematology & Oncology - [address] [phone] Alisson Carreon MD [address] [place] [address] [phone] 04/13/2024 13:30 EDT Appointment [facility] Hematology & Oncology [address] [phone] 04/13/2024 14:00 EDT Appointment [facility] Hematology & Oncology - [address] [phone] 04/16/2024 10:00 EST Telemedicine [facility] Palliative Care Services [address] [place] [address] [phone] Chichi Woods MD [address] [place] [address] [phone] 04/24/2024 9:00 EST Appointment [facility] Radiology CT Outpatient - [address] [address] 04/24/2024 11:00 EST Appointment [facility] Breast Imaging - [facility] S [address] [address] 04/27/2024 12:00 EST Appointment [facility] Hematology & Oncology [address] [address] 05/02/2024 15:00 EST Telemedicine [facility] Hematology & Oncology [address] [phone] Alisson Carreon MD [address] [place] [address], Level [address] [place] [phone] 05/04/2024 10:15 EST Ancillary Procedure [facility] Cardiology [place] [address] [place] [address] 05/04/2024 11:30 EST Appointment [facility] Hematology & Oncology [address] 103181 05/04/2024 12:00 EST Appointment [facility] Hematology & Oncology [address] 328651 06/12/2024 13:00 EST Appointment [facility] Radiology CT - [address] [phone] documented as of this encounter Procedures Procedure Name Priority Date/Time Associated Diagnosis Comments NM BONE WHOLE BODY Routine 08/11/2020 12 :34 EST Malignant neoplasm of right female breast, unspecified estrogen receptor status, unspecified site of breast ([facility]) documented in this encounter Results * NM BONE WHOLE BODY (08/11/2020 12:34 EST) Anatomical Region Laterality Modality Nuclear Medicine 08/12/2020 14:2 8 EST Impressions 08/12/2020 14:28 EST New foci of increased radiotracer uptake in the proximal left femur, concerning for metastatic disease. Otherwise stable bone scan. Narrative 08/12/2020 14:28 EST NM BONE WHOLE BODY ??08/11/2020 12:00 PM Signs and Symptoms: ??Complex Patient Condition - See Comments Comparison: Bone scan January 18, 2020, MRI of the left hip March 06, 2020, MRI of the lumbar spine March 28, 2020, cervical spine radiograph March 07, 2020. Technique: Approximately two hours after the IV injection of 19.8 mCi Tc-99m MDP, anterior and posterior whole body bone images were obtained. Findings: Increased radiotracer uptake is identified associated with degenerative changes in the cervical spine as seen on the comparison radiographs from March 07, 2020. The appearance is unchanged from the prior bone scan. Patient is status post lumbar spinal fusion. No abnormal uptake is seen with the fusion. There is intense radiotracer uptake again identified in the upper lumbar spine corresponding to severe spondylosis at L1-L2 level as seen on the comparison MRI of the lumbar spine March 28, 2020. A focus of increased radiotracer uptake in the left femoral neck is again visualized. New additional foci identified in the proximal left femur, not seen on the prior bone scan. Focus of radiotracer uptake in the left elbow corresponds to the injection site. Increased radiotracer uptake in both feet, most pronounced in the right great toe is unchanged and related to arthrosis. Procedure Note Sonny Georges MD - 08/12/2020 NM BONE WHOLE BODY 08/11/2020 12:00 PM Signs and Symptoms: Complex Patient Condition - See Comments Comparison: Bone scan January 18, 2020, MRI of the left hip March 06, 2020, MRI ofthe lumbar spine March 28, 2020, cervical spine radiograph February. Technique: Approximately two hours after the IV injection of 19.8 mCi Tc-99m MDP,anterior and posterior whole body bone images were obtained. Findings: Increased radiotracer uptake is identified associated with degenerativechanges in the cervical spine as seen on the comparison radiographs fromSe2019. The appearance is unchanged from the prior bone scan.Patient is status post lumbar spinal fusion. No abnormal uptake is seenwith the fusion. There is intense radiotracer uptake again identified inthe upper lumbar spine corresponding to severe spondylosis at L1-L2 levelas seen on the comparison MRI of the lumbar spine March 28, 2020. A focus of increased radiotracer uptake in the left femoral neck is againvisualized. New additional foci identified in the proximal left femur, notseen on the prior bone scan. Focus of radiotracer uptake in the left elbow corresponds to the injectionsite. Increased radiotracer uptake in both feet, most pronounced in theright great toe is unchanged and related to arthrosis. IMPRESSION New foci of increased radiotracer uptake in the proximal left femur,concerning for metastatic disease. Otherwise stable bone scan. Augustina Colin MD [...] radiopharm IV, NOW X1, 1 dose, On Tue08/11/20 at 0945, Routine, Imaging Protocol Orders Given 08/11/2020 9:15 EST 19.8 millicuries Left ACF documented in this encounter Care Teams Director Biostatistics Relationship Specialty Start Date End Date Linda Blancas MD [facility] [address] [place] [address] PCP - General 01/06/11 Adolfo Carreno MD [address] [place] [phone] General Surgery 04/26/19 Augustina Colin MD PhD [address] [phone] Medical Oncology 04/26/19 documented as of this encounter
--- OUTSIDE RECORDS SUMMARY | 2024-03-20 14:57 | XMS_ITS | Encounter Summary ---
Author Organization [facility] Address [address] [place] [address] 9[address]66 Care Team Providers Care Damage Cutter Name Role Phone Linda Blancas MD Primary Care Provider [phone] Adolfo Carreno MD Unavailable [phone] Augustina Colin MD PhD Unavailable Unavailable Reason for Visit * Radiology Services (Routine) - Closed Specialty Diagnoses / Procedures Referred By Doug hearn Referred To Contact Nuclear Medicine Diagnoses Malignant neoplasm of right female breast, unspecified estrogen receptor status, unspecified site of breast ([facility]) Procedures NM BONE WHOLE BODY Augustina Colin MD PhD Referral ID Status Reason Start Date Expiration Date Visits Re quested Visits Authorized [id number] Closed 2020 1 1 Encounter Details Date Type Department Care Team (Latest Contact Info) Description 08/11/2020 8:48 EST - 08/11/2020 12:09 EST Hospital En[facility] Radiology Nuclear Medicine and PET - [address] [id number] Discharge Disposition: Home or Self Care Social [...] Appointment [facility] Interventional Radiology Unit [address] [place] [address] [phone] 04/02/2024 15:15 EDT Office Visit [facility] Surgical Oncology - [address] 305421 Adolfo Carreno MD 111 [facility], [facility] 2 [place] [phone] 04/05/2024 9:30 EDT Telemedicine [facility] Palliative Care Services [address] [place] [address] [phone] Chichi Woods MD [address] [place] [address] [phone] 04/11/2024 15:00 EDT Telemedicine [facility] Hematology & Oncology [address] [phone] Alisson Carreon MD [address] [place] [address], Level 2 [place] [phone] 04/13/2024 13:30 EDT Appointment [facility] Hematology & Oncology [address] 203021 04/13/2024 14:00 EDT Appointment [facility] Hematology & Oncology [address] 284391 04/16/2024 10:00 EST Telemedicine [facility] Palliative Care Services [address] [place] [address] [phone] Chichi Woods MD [address] [place] [address] [phone] 04/24/2024 9:00 EST Appointment [facility] Radiology CT Outpatient - [address] [id number] 04/24/2024 11:00 EST Appointment [facility] Breast Imaging - [address] 663121 04/27/2024 12:00 EST Appointment [facility] Hematology & Oncology - [address] 955661 05/02/2024 15:00 EST Telemedicine [facility] Hematology & Oncology - [address] [address] Alisson Carreon MD 111 [facility], [facility], Level 2 [place] [phone] 05/04/2024 10:15 EST Ancillary Procedure [facility] Cardiology - [address] [place] [address] 05/04/2024 11:30 EST Appointment [facility] Hematology & Oncology - [facility] 111 [place], [place] 764961 05/04/2024 12:00 EST Appointment [facility] Hematology & Oncology [address] 825481 06/12/2024 13:00 EST Appointment [facility] Radiology CT - [facility] [address] [place], [place] 404121 documented as of this encounter Procedures Procedure Name Priority Date/Time Associated Diagnosis Comments MA BONE WHOLE BODY Routine 08/11/2020 12 :34 EST Malignant neoplasm of right female breast, unspecified estrogen receptor status, unspecified site of breast ([facility]) documented in this encounter Results * NM [...] on filedocumented in this encounter Care Teams Damage Cutter Relationship Specialty Start Date End Date Linda Blancas MD [facility] [address] [place] [address] PCP - General 01/06/11 Adolfo Carreno MD [address] [place] [address] 2 [place] [address] General Surgery 04/26/19 Augustina Colin MD PhD [address] [place] [address] 2 [place] [phone] Medical Oncology 04/26/19 documented as of this encounter
--- OUTSIDE RECORDS SUMMARY | 2024-03-20 14:57 | XMS_ITS | Encounter Summary ---
Author Organization [facility] Address [address] [place] [address] Care Team Providers Care Plastic Sheets Supervisor Name Role Phone Linda Blancas MD Primary Care Provider [phone] Adolfo Carreno MD Unavailable [phone] Augustina Colin MD PhD Unavailable Unavailable Reason for Referral * Radiology Services (Routine) - Closed Specialty Diagnoses / Procedures Referred By Contdayanna t Referred To Contact Nuclear Medicine Diagnoses Malignant neoplasm of right female breast, unspecified estrogen receptor status, unspecified site of breast ([facility]) Procedures NM BONE WHOLE BODY Augustina Colin MD PhD Referral ID Status Reason Start Date Expiration Date Visits Re quested Visits Authorized [id number] Closed 2020 1 1 * Radiology Services (Routine) - Closed Specialty Diagnoses / Procedures Referred By [facility] Referred To Contact Diagnoses Malignant neoplasm of right female breast, unspecified estrogen receptor status, unspecified site of breast ([facility]) Procedures CT CHEST W CONTRAST Augustina Colin MD PhD Referral ID Status Reason Start Date Expiration Date Visits Re quested Visits Authorized [id number] Closed 08/11/2020 02/07/2021 1 1 Encounter Details Date Type Department Care Team (Late st Contact Info) Description 2020 Orders Only [facility] Cancer Center Hematology & Oncology - [facility] [address] [place], [place] 000351 Carmen Pillai RN Malignant neoplasm of right female breast, unspecified estrogen receptor status, unspecified site of breast ([facility]) (Primary Dx) Social History Tobacco Use Types [...] Appointment [facility] Interventional Radiology Unit [address] [place] [address] 04/02/2024 15:15 EDT Office Visit [facility] Surgical Oncology - [facility] [address] [place] [address] Adolfo Carreno MD 111 [facility], [facility], Level 2 [place] [phone] 04/05/2024 9:30 EDT Telemedicine [facility] Palliative Care Services [address] [place] [address] 835371 Chichi Woods MD [address] [place] [address] [phone] 04/11/2024 15:00 EDT Telemedicine [facility] Hematology & Oncology - [address] [address] Alisson Carreon MD [address] [place] [address], Level 2 [place] [phone] 04/13/2024 13:30 EDT Appointment [facility] Hematology & Oncology - [address] [address] 04/13/2024 14:00 EDT Appointment [facility] Hematology & Oncology [address] [address] 04/16/2024 10:00 EST Telemedicine [facility] Palliative Care Services [address] [place] [address] Chichi Woods MD [address] [place] [address] [phone] 04/24/2024 9:00 EST Appointment [facility] Radiology CT Outpatient - [address] [id number] 04/24/2024 11:00 EST Appointment [facility] Breast Imaging - [address] 110431 04/27/2024 12:00 EST Appointment [facility] Hematology & Oncology - [address] [address] 05/02/2024 15:00 EST Telemedicine [facility] Hematology & Oncology [address] 836611 Alisson Carreon MD 111 [facility], Level 2 [place] [phone] 05/04/2024 10:15 EST Ancillary Procedure [facility] Cardiology - [address] [place] [address] 05/04/2024 11:30 EST Appointment [facility] Hematology & Oncology [address] 758371 05/04/2024 12:00 EST Appointment [facility] Hematology & Oncology [address] 863551 06/12/2024 13:00 EST Appointment [facility] Radiology CT - [address] 008811 documented as of this encounter Results * [...] during the intravenous administration of 70-100 cc [id number] mg% nonionic contrast injected at a rate [...] Colin MD PhD IMG CT ORDERABLES * NM BONE WHOLE BODY (08/11/2020 12:34 [...] (HCC-CMS) documented in this encounter Care Teams Plastic Sheets Supervisor Relationship Specialty Start Date End Date Linda Blancas MD [address] [place] [address] 30 [place] [address] PCP - General 01/06/11 Adolfo Carreno MD [address] [place] [phone] General Surgery 04/26/19 Augustina Colin MD PhD [address] [place] [phone] Medical Oncology 04/26/19 documented as of this encounter
--- OUTSIDE RECORDS SUMMARY | 2024-03-20 14:57 | XMS_ITS | Encounter Summary ---
Author Organization [facility] Address [address] [place] [address] Care Team Providers Care Peoplesoft Developer Name Role Phone Linda Blancas MD Primary Care Provider [phone] Adolfo Carreno MD Unavailable [phone] Augustina Colin MD PhD Unavailable Unavailable Encounter Details Date Type Department Care Team (Late st Contact Info) Description 08/19/2020 Orders Only [facility] Cancer Center Hematology & Oncology - [facility] [address] [place] [address] Quita Álvarez, SHELLEY Malignant neoplasm of right [...] [facility] Interventional Radiology Unit [address] [place] [address] [phone] 04/02/2024 15:15 EDT Office Visit [facility] Surgical Oncology - [address] [phone] Adolfo Carreno MD [address] [place] [address] 2 [place] [phone] 04/05/2024 9:30 EDT Telemedicine [facility] - [facility] Palliative Care Services [address] [place], [place] [phone] Chichi Woods MD [address] [place] [address], [address] [phone] 04/11/2024 15:00 EDT Telemedicine [facility] Hematology & Oncology - [address] [phone] Alisson Carreon MD [address] [place] [address] 2 [place] [phone] 04/13/2024 13:30 EDT Appointment [facility] Hematology & Oncology [address] [id number] 04/13/2024 14:00 EDT Appointment [facility] Hematology & Oncology [address] [address] 04/16/2024 10:00 EST Telemedicine [facility] - [facility] Palliative Care Services [address] [place] [address] [phone] Chichi Woods MD [address] [place] [address] [phone] 04/24/2024 9:00 EST Appointment [facility] Radiology CT Outpatient - [address] [id number] 04/24/2024 11:00 EST Appointment [facility] Breast Imaging - [facility] S [address] [id number] 04/27/2024 12:00 EST Appointment [facility] Hematology & Oncology [address] [phone] 05/02/2024 15:00 EST Telemedicine [facility] Hematology & Oncology [address] [phone] Alisson Carreon MD [address] [place] [address], Level 2 [place] [phone] 05/04/2024 10:15 EST Ancillary Procedure [facility] Cardiology [place] [place] [address] 05/04/2024 11:30 EST Appointment [facility] Hematology & Oncology [address] 025361 05/04/2024 12:00 EST Appointment [facility] Hematology & Oncology - [address] 608694 [phone] 06/12/2024 13:00 EST [facility] Rad[facility] - [address] [address] documented as of this encounter Visit Diagnoses Diagnosis Malignant neoplasm of right female breast, unspecified estrogen receptor status, unspecified site of breast ([facility] Primary documented in this encounter Orders Appointment Requests Count Last Ordered Date Fi rst Ordered Date ONCBCN CLINIC APPOINTMENT REQUEST 1 021 ONCBCN INJECTION APPOINTMENT REQUEST 2 10/1210/02/2020 documented in this encounter Additional Health Concerns Infection Onset Date Last Indicated Resolved Time R/O COVID-19 12/12/2023 12/12/2023 12/12/2023 15:3 5 EDT R/O COVID-19 01/08/2024 01/08/2024 01/08/2024 18:2 6 EDT R/O COVID-19 01/16/2024 01/16/2024 01/16/2024 17:5 0 EDT documented as of this encounter Care Teams Peoplesoft Developer Relationship Specialty Start Date End Date Linda Blancas MD [facility] [address] [place] [address] PCP - General 01/06/11 Adolfo Carreno MD [address] [place] [address] 2 [place] [phone] General Surgery 04/26/19 Augustina Colin MD PhD [address] [place] [address] 2 [place] [phone] Medical Oncology 04/26/19 documented as of this encounter
--- OUTSIDE RECORDS SUMMARY | 2024-03-20 14:57 | XMS_ITS | Encounter Summary ---
Author Organization [facility] Address [address] [place] [address] Care Team Providers Care Armoured Corps Officer Name Role Phone Linda Blancas MD Primary Care Provider [phone] Adolfo Carreno MD Unavailable [phone] Augustina Colin MD PhD Unavailable Unavailable Encounter Details Date Type Department Care Team (Latest Contact Info) Description 08/06/2020 9:00 EST Phlebotomy Only [facility] Cancer Center Hematology & Oncology - Main [place] [address] [place] [address] Blood Doctor, [facility] Hem Onc Metastatic breast cancer [...] Progress Notes * Perla Wynne MA - 08/06/2020 0900 EST Venipuncture performed for Dittus Per orders of Dixie Number of attempts 1 RT AC I was supervised by Dixie who was present and immediately available in the office suite. PERLA WYNNE MA 08/06/2020 8:56 documented in this encounter Plan of Treatment Upcoming Encounters Date Type Department Care Team (Late st Contact Info) Description 04/02/2024 10:30 EDT Appointment [facility] Interventional Radiology Unit [address] [place] [address] 467121 04/02/2024 15:15 EDT Office Visit [facility] Surgical Oncology - [address] [phone] Adolfo Carreno MD 111 [facility], Level 2 [place] [phone] 04/05/2024 9:30 EDT Telemedicine [facility] Palliative Care Services [address] [place] [address] [phone] Chichi Woods MD 111 [facility], [address] [phone] 04/11/2024 15:00 EDT Telemedicine [facility] Hematology & Oncology - [address] [phone] Alisson Carreon MD [address] [place] [address] 2 [place] [phone] 04/13/2024 13:30 EDT Appointment [facility] Hematology & Oncology - [address] [phone] 04/13/2024 14:00 EDT Appointment [facility] Hematology & Oncology [address] 829771 04/16/2024 10:00 EST Telemedicine [facility] - [facility] Palliative Care Services [address] [place] [address] [phone] Chichi Woods MD [address] [place] [address] [phone] 04/24/2024 9:00 EST Appointment [facility] Radiology CT Outpatient - [address] 251991 04/24/2024 11:00 EST Appointment [facility] Breast Imaging - [address] 870311 04/27/2024 12:00 EST Appointment [facility] Hematology & Oncology - [address] [phone] 05/02/2024 15:00 EST Telemedicine [facility] Hematology & Oncology - [address] 081771 Alisson Carreon MD [address] [place] [address], [facility] 2 [place] [phone] 05/04/2024 10:15 EST Ancillary Procedure [facility] Cardiology - [address] [place] [address] 05/04/2024 11:30 EST Appointment [facility] Hematology & Oncology [address] [address] 05/04/2024 12:00 EST Appointment [facility] Hematology & Oncology [address] 221971 06/12/2024 13:00 EST Appointment [facility] Radiology CT - [address] 637241 documented as of this encounter Procedures Procedure Name Priority Date/Time Associated Diagnosis Comments COMPREHENSIVE METABOLIC PANEL (ONCOLOGY USE ONLY-INC MG) STAT 08/06/2020 8:56 EST Metastatic breast cancer (HCC-CMS) documented in this encounter Results * COMPREHENSIVE METABOLIC PANEL (ONCOLOGY USE ONLY-INC MG) (08/06/2020 8:56 EST) Sodium 141 136 - 145 mEq/L 08/06/2020 9:27 [facility] Potassium 4.2 3.5 - 5.0 mEq/L 08/06/2020 9:27 [facility] Chloride 103 96 - 110 mEq/L 08/06/2020 9:27 [facility] CO2 Total 27 22 - 32 mEq/L 08/06/2020 9:27 [facility] Glucose 70 70 - 100 mg/dL 08/06/2020 9:27 [facility] BUN 20 10 - 26 mg/dL 08/06/2020 9:27 [facility] Creatinine 0.78 0.52 - 1.04 mg/dL 08/06/2020 9:27 [facility] eGFR 84 >60 mL/min/1.7 3m2 08/06/2020 9:27 [facility] Comment:eGFR calculated gordo ureña CKD-EPI equation for non- Americans. Multiply eGFR by 1.16 for patients. Total Protein 7.8 6.3 - 8.2 g/dL 08/06/2020 9:27 [facility] Albumin 4.7 3.4 - 4.9 g/dL 08/06/2020 9:27 [facility] Alkaline Phosphatase 70 38 - 126 U/L 08/06/2020 9:27 [facility] AST 41 15 - 46 U/L 08/06/2020 9:27 [facility] ALT 28 <35 U/L 08/06/2020 9:27 [facility] Bilirubin, Total <0.5 <1.4 mg/dL 08/06/19 9:27 [facility] Calcium 10.1 8.5 - 10.5 mg/dL 08/06/2020 9:27 [facility] Calculated Calcium 9.5 8.5 - 10.5 mg/dL 08/06/2020 9:27 [facility] Magnesium 2.1 1.7 - 2.8 mg/dL 08/06/2020 9:27 [facility] Blood VENOUS BLOOD / Unknown Venipuncture / Unknown 08/06/2020 8:56 EST 08/06/2020 9:02 EST Augustina Colin MD PhD CHEMISTRY & BLOOD GA S ORDERABLES Performing Organization Address [facility]/State/[facility] Co de Phone Number [facility] [address] [place] [address] documented in this encounter Visit Diagnoses Diagnosis Metastatic breast cancer- Primary documented in this encounter Care Teams Armoured Corps Officer Relationship Specialty Start Date End Date Linda Blancas MD [facility] [address] [place] [address] PCP - General 01/06/11 Adolfo Carreno MD [address] [place] [address] 2 [place] [phone] General Surgery 04/26/19 Augustina Colin MD PhD [facility], Level [address] [place] [address] Medical Oncology 04/26/19 documented as of this encounter
--- OUTSIDE RECORDS SUMMARY | 2024-03-20 14:57 | XMS_ITS | Encounter Summary ---
Author Organization [facility] Address [address] [place] [address] Care Team Providers Care Factory Lay Out Engineer Name Role Phone Linda Blancas MD Primary Care Provider [phone] Adolfo Carreno MD Unavailable [phone] Augustina Colin MD PhD Unavailable Unavailable Reason for Visit * Reason Onset Date Comments Appointment Related 08/11/2020 Encounter Details Date Type Department Care Team (Late st Contact Info) Description 08/11/2020 Telephone [facility] Cancer Center Hematology & Oncology - Main [place] [address] [place], [place] 069081 Augustina Colin, PhD Appointment Related Social History [...] Miscellaneous Notes * Telephone Encounter - Sandhya Mcbride - 08/11/2020 0933 EST Patient calling to speak to the schedule regarding her appointments. documented in this encounter Plan of Treatment Upcoming Encounters Date Type Department Care Team (Late st Contact Info) Description 04/02/2024 10:30 EDT Appointment [facility] Interventional Radiology Unit [address] [place] [address] 863001 04/02/2024 15:15 EDT Office Visit [facility] Surgical Oncology - [address] [phone] Adolfo Carreno MD 111 [facility] 2 [place] [phone] 04/05/2024 9:30 EDT Telemedicine [facility] - [facility] Palliative Care Services [address] [place], [place] 696461 Chichi Woods MD [address] [place] [address] [phone] 04/11/2024 15:00 EDT Telemedicine [facility] Hematology & Oncology - [facility] [address] [place], [place] [phone] Alisson Carreon MD 111 [facility] 2 [place] [phone] 04/13/2024 13:30 EDT Appointment [facility] Hematology & Oncology - [address] [id number] 04/13/2024 14:00 EDT Appointment [facility] Hematology & Oncology - [address] [id number] 04/16/2024 10:00 EST Telemedicine [facility] - [facility] Palliative Care Services [address] [place] [address] [phone] Chichi Woods MD [address] [place] [address], [address] [phone] 04/24/2024 9:00 EST Appointment [facility] Radiology CT Outpatient - [address] [id number] 04/24/2024 11:00 EST Appointment [facility] Breast Imaging - [facility] S [address] [id number] 04/27/2024 12:00 EST Appointment [facility] Hematology & Oncology - [address] [phone] 05/02/2024 15:00 EST Telemedicine [facility] Hematology & Oncology - [address] 783161 Alisson Carreon MD [address] [place] [address], Level [address] [place] [phone] 05/04/2024 10:15 EST Ancillary Procedure [facility] Cardiology - [address] [place], [place] [phone] 05/04/2024 11:30 EST Appointment [facility] Hematology & Oncology - [address] [address] 05/04/2024 12:00 EST Appointment [facility] Hematology & Oncology - [address] [address] 06/12/2024 13:00 EST Appointment [facility] Radiology CT - [address] 185811 documented as of this encounter Visit Diagnoses Not on filedocumented in this encounter Care Teams Factory Lay Out Engineer Relationship Specialty Start Date End Date Linda Blancas MD [facility] [address] [place] [address] PCP - General 01/06/11 Adolfo Carreno MD [address] [place] [address] 2 [place] [phone] General Surgery 04/26/19 Augustina Colin MD PhD [address] [place] [address] 2 [place] [phone] Medical Oncology 04/26/19 documented as of this encounter
--- OUTSIDE RECORDS SUMMARY | 2024-03-20 14:57 | XMS_ITS | Encounter Summary ---
Author Organization [facility] Address [address] [place] [address] Care Team Providers Care Career Guidance Counselor Name Role Phone Linda Blancas MD Primary Care Provider [phone] Adolfo Carreno MD Unavailable [phone] Augustina Colin MD PhD Unavailable Unavailable Reason for Visit * Reason Onset Date Comments Appointment Related 08/08/2020 Encounter Details Date Type Department Care Team (Late st Contact Info) Description 08/08/2020 Telephone [facility] Hematology & Oncology - Main [place] [address] [place], [place] 134271 Augustina Colin, PhD Appointment Related Social History [...] * Telephone Encounter - Nilson Arciniega - 08/08/2020 1557 EST lmom for pt bone scan 08/11 check in @830 Ct3 check in @115 left PAC# documented in this encounter Plan of Treatment Upcoming Encounters Date Type Department Care Team (Late st Contact Info) Description 04/02/2024 10:30 EDT Appointment [facility] Interventional Radiology Unit [address] [place] [address] [phone] 04/02/2024 15:15 EDT Office Visit [facility] Surgical Oncology - [address] [phone] Adolfo Carreno MD 111 [facility], [facility] 2 [place] [phone] 04/05/2024 9:30 EDT Telemedicine [facility] - [facility]iative [facility] [address] [place], [place] [phone] Chichi Woods MD [address] [phone] 04/11/2024 15:00 EDT Telemedicine [facility] Hematology & Oncology - [facility] [address] [place], [place] [phone] Alisson Carreon MD [address] [place] [address], [facility] 2 [place] [phone] 04/13/2024 13:30 EDT Appointment [facility] Hematology & Oncology - [address] [phone] 04/13/2024 14:00 EDT Appointment [facility] Hematology & Oncology - [address] 876161 04/16/2024 10:00 EST Telemedicine [facility] - [facility] [address] [place] [address] [phone] Chichi Woods MD [address] [place] [address] [phone] 04/24/2024 9:00 EST Appointment [facility] Radiology CT Outpatient - [address] 176131 04/24/2024 11:00 EST Appointment [facility] Breast Imaging - [facility] [address] 692161 04/27/2024 12:00 EST Appointment [facility] Hematology & Oncology - [address] 024221 05/02/2024 15:00 EST Telemedicine [facility] Hematology & Oncology - [address] 529751 Alisson Carreon MD [address] [place] [address], [facility] 2 [place] [phone] 05/04/2024 10:15 EST Ancillary Procedure [facility] Cardiology - [address] [place], [place] [phone] 05/04/2024 11:30 EST Appointment [facility] Cancer Center Hematology & Oncology - [address] [address] 05/04/2024 12:00 EST Appointment [facility] Hematology & Oncology - [address] [address] 06/12/2024 13:00 EST Appointment [facility] Center Radiology CT - [address] [address] documented as of this encounter Visit Diagnoses Not on filedocumented in this encounter Care Teams Career Guidance Counselor Relationship Specialty Start Date End Date Linda Blancas MD [facility] [address] [place] [address] PCP - General 01/06/11 Adolfo Carreno MD [address] [place] [address] [phone] General Surgery 04/26/19 Augustina Colin MD PhD [address] [place] [phone] Medical Oncology 04/26/19 documented as of this encounter
--- OUTSIDE RECORDS SUMMARY | 2024-03-20 14:57 | XMS_ITS | Encounter Summary ---
Author Organization [facility] Address [address] [place] [address] Care Team Providers Care Loose Hand Packer Name Role Phone Linda Blancas MD Primary Care Provider [phone] Adolfo Carreno MD Unavailable [phone] Augustina Colin MD PhD Unavailable Unavailable Encounter Details Date Type Department Care Team (Late st Contact Info) Description 08/11/2020 Orders Only [facility] Hematology & Oncology - [facility] [address] [place] [address] Hetal Tan, RN [address] [place] [address] Malignant neoplasm of right female breast, unspecified [...] Contact Info) Description 04/02/2024 10:30 EDT Appointment [facility] Interventional Radiology Unit [address] [place] [address] [phone] 04/02/2024 15:15 EDT Office Visit [facility] Surgical Oncology - [address] [phone] Adolfo Carreno MD [address] [place] [address] 2 [place] [phone] 04/05/2024 9:30 EDT Telemedicine [facility] - [facility] Palliative Care Services [address] [place], [place] [phone] Chichi Woods MD [address] [place] [address], [address] [phone] 04/11/2024 15:00 EDT Telemedicine [facility] Hematology & Oncology - [address] [phone] Alisson Carreon MD [address] [place] [address] 2 [place] [phone] 04/13/2024 13:30 EDT Appointment [facility] Hematology & Oncology - [address] [phone] 04/13/2024 14:00 EDT Appointment [facility] Hematology & Oncology - [address] [address] 04/16/2024 10:00 EST Telemedicine [facility] - [facility] Palliative Care Services [address] [place] [address] 884311 Chichi Woods MD [address] [place] [address] [phone] 04/24/2024 9:00 EST Appointment [facility] Radiology CT Outpatient - [address] [address] 04/24/2024 11:00 EST Appointment [facility] Breast Imaging - [facility] [place] 1 [place], [place] 635351 04/27/2024 12:00 EST Appointment [facility] Hematology & Oncology - [address] 465321 05/02/2024 15:00 EST Telemedicine [facility] Hematology & Oncology [address] 655411 Alisson Carreon MD [address] [place] [address], [facility] 2 [place] [phone] 05/04/2024 10:15 EST Ancillary Procedure [facility] Cardiology - [place] [address] 05/04/2024 11:30 EST Appointment [facility] Hematology & Oncology - [address] 553261 05/04/2024 12:00 EST Appointment [facility] Hematology & Oncology - [address] [address] 06/12/2024 13:00 EST [facility]ment [facility] Radiology CT - [address] [address] documented as of this encounter Visit Diagnoses Diagnosis Malignant neoplasm of right female breast, unspecified estrogen receptor status, unspecified site of breast ([facility] Primary documented in this encounter Orders Appointment Requests Count Last Ordered Date Fi rst Ordered Date ON[facility]N CLINIC APPOINTMENT REQUEST 1 021 ONCBCN INJECTION APPOINTMENT REQUEST 08/12 documented in this encounter Care Teams Loose Hand Packer Relationship Specialty Start Date End Date Linda Blancas MD [facility] [address] [place] [address] PCP - General 01/06/11 Adolfo Carreno MD [address] [place] [address] [phone] General Surgery 04/26/19 Augustina Colin MD PhD [address] [place] [phone] Medical Oncology 04/26/19 documented as of this encounter
--- OUTSIDE RECORDS SUMMARY | 2024-03-20 14:57 | XMS_ITS | Encounter Summary ---
Author Organization [facility] Address [address] [place] [address] Care Team Providers Care Machine Assembler For Puller Over Name Role Phone Linda Blancas MD Primary Care Provider [phone] Adolfo Carreno MD Unavailable [phone] Augustina Colin MD PhD Unavailable Unavailable Encounter Details Date Type Department Care Team (Late st Contact Info) Description 08/11/2020 10:[address] [facility] Surgical Oncology - Main [place] [address] [place] [address] Social History Tobacco Use Types Packs/Day Years [...] [facility] Inter[facility] Radiology Unit [address] [place] [address] [phone] 04/02/2024 15:[address] [facility] Surgical Oncology - [address] [phone] Adolfo Carreno MD [address] [place] [address] 2 [place] [phone] 04/05/2024 9:30 EDT Telemedicine [facility] - [facility] Palliative Care Services [address] [place] [address] [phone] Chichi Woods MD [address] [place] [address] [phone] 04/11/2024 15:00 EDT Telemedicine [facility] Hematology & Oncology - [address] [phone] Alisson Carreon MD [address] [place] [address] 2 [place] [phone] 04/13/2024 13:30 EDT Appointment [facility] Hematology & Oncology [address] [phone] 04/13/2024 14:00 EDT Appointment [facility] Hematology & Oncology - [address] [phone] 04/16/2024 10:00 EST Telemedicine [facility] - [facility] Palliative Care Services [address] [place], [place] 083151 Chichi Woods MD 111 [facility], [address] [phone] 04/24/2024 9:00 EST Appointment [facility] Radiology CT Outpatient - [address] 837311 04/24/2024 11:[address] [facility] Breast Imaging - [address] 381741 04/27/2024 12:00 EST Appointment [facility] Hematology & Oncology - [address] 566251 05/02/2024 15:00 EST Telemedicine [facility] Hematology & Oncology - [address] [phone] Alisson Carreon MD [address] [place] [address], [facility] 2 [place] [phone] 05/04/2024 10:[address] [facility] Cardiology [place] [address] 05/04/2024 11:30 EST Appointment [facility] Hematology & Oncology - [address] [phone] 05/04/2024 12:00 EST Appointment [facility] Hematology & Oncology - [address] [address] 06/12/2024 13:00 EST Appointment [facility] Radiology CT - [address] [phone] documented as of this encounter Procedures Procedure Name Priority Date/Time Associated Diagnosis Comments [facility] BREAST BREAST [facility]ARE [facility] ONLY Routine 08/11/2020 10:57 EST documented in this encounter Results * [facility] BREAST BREAST [facility] ONLY (08/11/2020 10:57 EST) Narrative [facility] POINT OF CARE - 08/11/2020 10:57 EST This is a non-reportable exam. Adolfo Carreno MD IMG US POC ORDERABLE S [facility] POINT OF CARE documented in this encounter Visit Diagnoses Not on filedocumented in this encounter Care Teams Machine Assembler For Puller Over Relationship Specialty Start Date End Date Linda Blancas MD [facility] [address] [place] [address] PCP - General 01/06/11 Adolfo Carreno MD [address] [place] [address] [phone] General Surgery 04/26/19 Augustina Colin MD PhD [address] [place] [address] 2 [place] [phone] Medical Oncology 04/26/19 documented as of this encounter
--- OUTSIDE RECORDS SUMMARY | 2024-03-20 14:58 | XMS_ITS | Encounter Summary ---
Author Organization [facility] Address [address] [place] [address] Care Team Providers Care Pastry Cook Helper Name Role Phone Linda Blancas MD Primary Care Provider [phone] Adolfo Carreno MD Unavailable [phone] Augustina Colin MD PhD Unavailable Unavailable Encounter Details Date Type Department Care Team (Late st Contact Info) Description 05/26/2020 Orders Only [facility] Hematology & Oncology - [facility] [address] [place] [address] Augustina Colin, PhD Social History Tobacco Use [...] Description 04/02/2024 10:30 EDT Appointment [facility] Interventional Radiology Unit [address] [place] [address] [phone] 04/02/2024 15:15 EDT Office Visit [facility] Surgical Oncology - [address] 513181 Adolfo Carreno MD [address] [place] [address] [phone] 04/05/2024 9:30 EDT Telemedicine [facility] - [facility] Palliative Care Services [address] [place] [address] 012631 Chichi Woods MD [address] [place] [address] [phone] 04/11/2024 15:00 EDT Telemedicine [facility] Hematology & Oncology [address] 840271 Alisson Carreon MD [address] [place] [address] [phone] 04/13/2024 13:30 EDT Appointment [facility] Hematology & Oncology [address] 552011 04/13/2024 14:00 EDT Appointment [facility] Hematology & Oncology [address] [phone] 04/16/2024 10:00 EST Telemedicine [facility] - [facility] Palliative Care Services [address] [place] [address] [phone] Chichi Woods MD [address] [place] [address], [place] [address] [place] [phone] 04/24/2024 9:00 EST Appointment [facility] Radiology CT Outpatient - [address] 545871 04/24/2024 11:00 EST Appointment [facility] Breast Imaging - [facility] 1 [place], [place] 298801 04/27/2024 12:00 EST Appointment [facility] Hematology & Oncology - [address] [phone] 05/02/2024 15:00 EST Telemedicine [facility] Hematology & Oncology - [address] 529891 Alisson Carreon MD [address] [place] [address], [facility], Level 2 [place] [phone] 05/04/2024 10:15 EST Ancillary Procedure [facility] Cardiology - [address] [place], [place] [phone] 05/04/2024 11:30 EST Appointment [facility] Hematology & Oncology - [address] [phone] 05/04/2024 12:00 EST Appointment [facility] Hematology & Oncology [address] [phone] 06/12/2024 13:00 EST Appointment [facility] Radiology CT - [address] [phone] documented as of this encounter Visit Diagnoses Not on filedocumented in this encounter Care Teams Pastry Cook Helper Relationship Specialty Start Date End Date Linda Blancas MD [facility] [address] [place] [address] PCP - General 01/06/11 Adolfo Carreno MD [address] [place] [address], [facility] 2 [place] [phone] General Surgery 04/26/19 Augustina Colin MD PhD [address] [place] [address], [facility] 2 [place] [phone] Medical Oncology 04/26/19 documented as of this encounter
--- OUTSIDE RECORDS SUMMARY | 2024-03-20 14:58 | XMS_ITS | Encounter Summary ---
Author Organization [facility] Address [address] [place] [address] Care Team Providers Care Counselor Nurses' Association Name Role Phone Linda Blancas MD Primary Care Provider [phone] Adolfo Carreno MD Unavailable [phone] Augustina Colin MD PhD Unavailable Unavailable Encounter Details Date Type Department Care Team (Late st Contact Info) Description 07/10/2020 Orders Only [facility] [address] [place], [place] 336601 Ginna Marshall RN Social History Tobacco Use Types Packs/Day [...] [facility] Interventional Radiology Unit [address] [place] [address] 495441 04/02/2024 15:15 EDT Office Visit [facility] [place] [facility] Surgical Oncology - [address] 896851 Adolfo Carreno MD [address] [place] [address] [phone] 04/05/2024 9:30 EDT Telemedicine [facility] - [facility] [place] [facility] Palliative Care Services [address] [place] [address] 295061 Chichi Woods MD [address] [place] [address] [phone] 04/11/2024 15:00 EDT Telemedicine [facility] Hematology & Oncology [address] 437681 Alisson Carreon MD [address] [place] [address] [phone] 04/13/2024 13:30 EDT Appointment [facility] Hematology Oncology [address] [phone] 04/13/2024 14:00 EDT Appointment [facility] Hematology & Oncology [address] 586141 04/16/2024 10:00 EST Telemedicine [facility] - [facility] Palliative Care Services [address] [place] [address] 462991 Chichi Woods MD [address] [place] [address], [place] [address] [place] [phone] 04/24/2024 9:00 EST Appointment [facility] Radiology CT Outpatient - [address] [id number] 04/24/2024 11:00 EST Appointment [facility] [place] [facility] Breast Imaging - [facility] [place] 1 [place], [place] 652481 04/27/2024 12:00 EST Appointment [facility] Hematology & Oncology - [address] 555441 05/02/2024 15:00 EST Telemedicine [facility] Hematology & Oncology - [address] [phone] Alisson Carreon MD [address] [place] [address], Level [address] [place] [phone] 05/04/2024 10:15 EST Ancillary Procedure [facility] [place] [facility] Cardiology - [address] [place], [place] [phone] 05/04/2024 11:30 EST Appointment [facility] Hematology & Oncology - [address] [phone] 05/04/2024 12:00 EST Appointment [facility] Hematology & Oncology [address] [phone] 06/12/2024 13:00 EST Appointment [facility] Radiology CT - [address] [phone] documented as of this encounter Visit Diagnoses Not on filedocumented in this encounter Care Teams Counselor Nurses' Association Relationship Specialty Start Date End Date Linda Blancas MD [facility] [address] [place] [address] PCP - General 01/06/11 Adolfo Carreno MD [address] [place] [address], [facility] 2 [place] [phone] General Surgery 04/26/19 Augustina Colin MD PhD [address] [place] [address], [facility] 2 [place] [phone] Medical Oncology 04/26/19 documented as of this encounter
--- OUTSIDE RECORDS SUMMARY | 2024-03-20 14:58 | XMS_ITS | Encounter Summary ---
Author Organization [facility] Address [address] [place] [address] Care Team Providers Care Wardrobe Specialty Worker Name Role Phone Linda Blancas MD Primary Care Provider [phone] Adolfo Carreno MD Unavailable [phone] Augustina Colin MD PhD Unavailable Unavailable Reason for Visit * Reason Onset Date Comments Other 07/07/2020 Encounter Details Date Type Department Care Team (Late st Contact Info) Description 07/07/2020 Telephone [facility] Plastic, Reconstructive & Cosmetic Surgery - [address], [address] [place] [address] Tylor Boss MD [address] [place] [phone] Other Social History Tobacco Use Types Packs/Day [...] * Telephone Encounter - Dasha Lockhart - 07/25/2020 1413 EST I was able to offer Sendy a surgery date of 09/08/20. Patient accepted. * Telephone Encounter - Susanna Jaquez RN - 07/08/[address] Boss in regards to positive covid result on 06/18/20. Patient needs to be rescheduled in 1 month and needs to be asymptomatic. SUSANNA JAQUEZ RN 07/08/2020 13:13 * Telephone Encounter - Susanna Jaquez RN - 07/07/2020 1309 EST Message acknowledged. Will check in with Dr. Boss tomorrow when he is back in the clinic in regards to this. SUSANNA JAQUEZ RN 07/07/2020 13:11 * Telephone Encounter - Dasha Lochkart - 07/07/2020 1203 EST Patient was diagnosed with COVID-19 on 06/18/20. She was admitted to [facility] until 07/04. She is scheduled on 07/21/20 for rt dog ear, lt shoulder lipoma, rt nipple recon. How will this change her surgery date? And when can she be rescheduled. documented in this encounter Plan of Treatment Upcoming Encounters Date Type Department Care Team (Late st Contact Info) Description 04/02/2024 10:30 EDT Appointment [facility] Interventional Radiology Unit [address] [place] [address] [phone] 04/02/2024 15:15 EDT Office Visit [facility] Surgical Oncology - [address] [phone] Adolfo Carreno MD [address] [place] [address] [phone] 04/05/2024 9:30 EDT Telemedicine [facility] - [facility] Palliative Care Services [address] [place] [address] [phone] Chichi Woods MD [address] [place] [address] [phone] 04/11/2024 15:00 EDT Telemedicine [facility] Hematology & Oncology - [address] [phone] Alisson Carreon MD [address] [place] [address] [phone] 04/13/2024 13:30 EDT Appointment [facility] Hematology & Oncology [address] [phone] 04/13/2024 14:00 EDT Appointment [facility] Hematology & Oncology [address] [id number] 04/16/2024 10:00 EST Telemedicine [facility] - [facility] Palliative Care Services [address] [place] [address] [phone] Chichi Woods MD [address] [place] [address], [address] [phone] 04/24/2024 9:00 EST Appointment [facility] Radiology CT Outpatient - [address] [id number] 04/24/2024 11:00 EST Appointment [facility] Breast Imaging - [facility] [place] 1 [place], [place] 195581 04/27/2024 12:00 EST Appointment [facility] Hematology & Oncology - [address] 086461 05/02/2024 15:00 EST Telemedicine [facility] Hematology & Oncology - [address] [phone] Alisson Carreon MD [address] [place] [address], Level 2 [place] [phone] 05/04/2024 10:15 EST Ancillary Procedure [facility] Cardiology - [place] [address] 05/04/2024 11:30 EST Appointment [facility] Hematology & Oncology - [address] [phone] 05/04/2024 12:00 EST Appointment [facility] Hematology & Oncology [address] [phone] 06/12/2024 13:00 EST Appointment [facility] Center Radiology CT - [address] [phone] documented as of this encounter Visit Diagnoses Not on filedocumented in this encounter Care Teams Wardrobe Specialty Worker Relationship Specialty Start Date End Date Linda Blancas MD [facility] [address] [place] [address] PCP - General 01/06/11 Adolfo Carreno MD [address] [place] [address] 2 [place] [phone] General Surgery 04/26/19 Augustina Colin MD PhD [address] [place] [phone] Medical Oncology 04/26/19 documented as of this encounter
--- OUTSIDE RECORDS SUMMARY | 2024-03-20 14:58 | XMS_ITS | Encounter Summary ---
Author Organization [facility] Address [address] [place] [address] Care Team Providers Care Manager Of Manufacturing Name Role Phone Linda Blancas MD Primary Care Provider [phone] Adolfo Carreno MD Unavailable [phone] Augustina Colin MD PhD Unavailable Unavailable Encounter Details Date Type Department Care Team (Late st Contact Info) Description 07/14/2020 Specialty Pharmacy [facility] - [facility] [address], [place] 347171 Allen Day, [facility] Social History Tobacco Use Types Packs/Day Years [...] 04/02/2024 10:30 EDT Appointment [facility] Interventional Radiology Unit [address] [place] [address] [phone] 04/02/2024 15:15 EDT Office Visit [facility] Surgical Oncology - [address] [phone] Adolfo Carreno MD [address] [place] [address] 2 [place] [phone] 04/05/2024 9:30 EDT Telemedicine [facility] - [facility] Palliative Care Services [address] [place] [address] [phone] Chichi Woods MD [address] [place] [address] [phone] 04/11/2024 15:00 EDT Telemedicine [facility] Hematology & Oncology [address] [phone] Alisson Carreon MD [address] [place] [address] [phone] 04/13/2024 13:30 EDT Appointment [facility] Hematology & Oncology [address] [phone] 04/13/2024 14:00 EDT Appointment [facility] Hematology & Oncology - [address] [address] 04/16/2024 10:00 EST Telemedicine [facility] - [facility] Palliative Care Services [address], [place] 0[address] Chichi Woods MD 111 [facility], [address] [phone] 04/24/2024 9:00 EST Appointment [facility] Radiology CT Outpatient - [address] [address] 04/24/2024 11:00 EST Appointment [facility] Breast Imaging - [address] [phone] 04/27/2024 12:00 EST Appointment [facility] Hematology & Oncology - [address] [phone] 05/02/2024 15:00 EST Telemedicine [facility] Hematology & Oncology - [address] [phone] Alisson Carreon MD [address] [place] [address], Level 2 [place] [phone] 05/04/2024 10:15 EST Ancillary Procedure [facility] Cardiology [place] [address] 05/04/2024 11:30 EST Appointment [facility] Hematology & Oncology - [address] [address] 05/04/2024 12:00 EST Appointment [facility] Hematology & Oncology - [address] 601391 06/12/2024 13:00 EST Appointment [facility] Radiology CT - [address] [address] documented as of this encounter Visit Diagnoses Not on filedocumented in this encounter Care Teams Manager Of Manufacturing Relationship Specialty Start Date End Date Linda Blancas MD [facility] [address] [place] [address] PCP - General 01/06/11 Adolfo Carreno MD [address] [place] [address] [phone] General Surgery 04/26/19 Augustina Colin MD PhD [address] [place] [phone] Medical Oncology 04/26/19 documented as of this encounter
--- OUTSIDE RECORDS SUMMARY | 2024-03-20 14:58 | XMS_ITS | Encounter Summary ---
Author Organization [facility] Address [address] [place] [address] Care Team Providers Care Cage Fighter Name Role Phone Linda Blancas MD Primary Care Provider [phone] Adolfo Carreno MD Unavailable [phone] Augustina Colin MD PhD Unavailable Unavailable Encounter Details Date Type Department Care Team (Late st Contact Info) Description 06/16/2020 Orders Only [facility] Cancer Center Hematology & Oncology - [facility] [address] [place] [address] Kathrin Candelaria, RN Metastatic breast cancer ([facility]) Social History Tobacco Use Types Packs/Day [...] Dispensed Refills Start Date End Da te abemaciclib 150 mg tabletIndications:Metastat ic breast cancer Take 150 mg by mouth every 12 hours. 60 Tab 2 06/16/2020 09/08/2020 documented in this encounter Plan of Treatment Upcoming Encounters Date Type Department Care Team (Late st Contact Info) Description 04/02/2024 10:30 EDT Appointment [facility] Interventional Radiology Unit [address] [place] [address] [phone] 04/02/2024 15:15 EDT Office Visit [facility] Surgical Oncology - [address] [phone] Adolfo Carreno MD [address] [place] [address] 2 [place] [phone] 04/05/2024 9:30 EDT Telemedicine [facility] - [facility] Palliative Care Services [address] [place] [address] [phone] Chichi Woods MD [address] [place] [address] [phone] 04/11/2024 15:00 EDT Telemedicine [facility] Hematology & Oncology [address] [phone] Alisson Carreon MD [address] [place] [address] 2 [place] [phone] 04/13/2024 13:30 EDT Appointment [facility] Hematology & Oncology - [address] [phone] 04/13/2024 14:00 EDT Appointment [facility] Hematology & Oncology - [address] [phone] 04/16/2024 10:00 EST Telemedicine [facility] - [facility] Palliative Care Services [address] [place] [address] [phone] Chichi Woods MD [address] [place] [address], [address] [phone] 04/24/2024 9:00 EST Appointment [facility] Radiology CT Outpatient - [address] [id number] 04/24/2024 11:00 EST Appointment [facility] Breast Imaging - [address] [phone] 04/27/2024 12:00 EST Appointment [facility] Hematology & Oncology [address] [id number] 05/02/2024 15:00 EST Telemedicine [facility] Hematology & Oncology [address] 427151 Alisson Carreon MD [address] [place] [address], [facility], Level 2 [place] [phone] 05/04/2024 10:15 EST Ancillary Procedure [facility] Cardiology - [place] [address] 05/04/2024 11:30 EST Appointment [facility] Hematology & Oncology [address] [id number] 05/04/2024 12:00 EST Appointment [facility] Hematology & Oncology - [address] 728331 06/12/2024 13:00 [facility] [place] [address] documented as of this encounter Visit Diagnoses Diagnosis Metastatic breast cancer documented in this encounter Discontinued Medications Medication Sig Discontinue Reason Start Date End Da te abemaciclib 150 mg tabletIndications:Metasta tic breast cancer Take 150 mg by mouth every 12 hours. Reorder 02/29/2020 06/16/2020 documented as of this encounter Additional Health Concerns Infection Onset Date Last Indicated Resolved Time R/O COVID-19 12/12/2023 12/12/2023 12/12/2023 15:3 5 EDT R/O COVID-19 01/08/2024 01/08/2024 01/08/2024 18:2 6 EDT R/O COVID-19 01/16/2024 01/16/2024 01/16/2024 17:5 0 EDT documented as of this encounter Care Teams Cage Fighter Relationship Specialty Start Date End Date Linda Blancas MD [facility] [address] [place] [address] PCP - General 01/06/11 Adolfo Carreno MD [address] [place] [address] [phone] General Surgery 04/26/19 Augustina Colin MD PhD [address] [place] [phone] Medical Oncology 04/26/19 documented as of this encounter
--- OUTSIDE RECORDS SUMMARY | 2024-03-20 14:58 | XMS_ITS | Encounter Summary ---
Author Organization [facility] Address [address] [place] [address] Care Team Providers Care Forming Machine Operator Name Role Phone Linda Blancas MD Primary Care Provider [phone] Adolfo Carreno MD Unavailable [phone] Augustina Coiln MD PhD Unavailable Unavailable Reason for Visit * Reason Onset Date Comments Medications Refill 06/12/2020 Encounter Details Date Type Department Care Team (Late st Contact Info) Description 06/12/2020 Refill [facility] Cancer Center Hematology & Oncology - [facility] [address] [place], [place] [phone] Augustina Colin, PhD Medications Refill Social History [...] Dispensed Refills Start Date End Da te diphenoxylate-atropine (LOMOTIL) 2.5-0.025 mg per tablet Take 2 tabs every 6 hours until control achieved, then take 2 tabs daily for maintenance. 30 Tab 1 06/12/2020 06/12/2020 documented in this encounter Miscellaneous Notes * Telephone Encounter - Tylor Cummings - 06/12/2020 1156 EST Patient has sent messages through email and [employer] explaining that the pharmacy made a mistake anddid not give her the correct medication. Patient has travelled and would like it sent to a different pharmacy (listed below). Please call to confirm transfer. Medication(s) Requested diphenoxylate-atropine (LOMOTIL) 2.5-0.025 mg per tablet Pharmacy: [facility] [address] [place] [phone] Next Visit Date 06/23/2020 Out of Medication? Yes Tylor Cummings 06/12/2020 11:57 documented in this encounter Plan of Treatment Upcoming Encounters Date Type Department Care Team (Late st Contact Info) Description 04/02/2024 10:30 EDT Appointment [facility] Interventional Radiology Unit [address] [place] [address] [phone] 04/02/2024 15:15 EDT Office Visit [facility] Surgical Oncology - [facility] [address] [place], [place] [phone] Adolfo Carreno MD [address] [place] [address] 2 [place] [phone] 04/05/2024 9:30 EDT Telemedicine [facility] Palliative Care Services [address] [place] [address] [phone] Chichi Woods MD [address] [place] [address] [phone] 04/11/2024 15:00 EDT Telemedicine [facility] Hematology & Oncology - [address] 184161 Alisson Carreon MD [address] [place] [address] 2 [place] [phone] 04/13/2024 13:30 EDT Appointment [facility] Hematology & Oncology - [address] [phone] 04/13/2024 14:00 EDT Appointment [facility] Hematology & Oncology - [address] [phone] 04/16/2024 10:00 EST Telemedicine [facility] - [facility] Palliative Care Services [address] [place] [address] Chichi Woods MD [address] [place] [address] [phone] 04/24/2024 9:00 EST Appointment [facility] Radiology CT Outpatient - [address] [id number] 04/24/2024 11:00 EST Appointment [facility] Breast Imaging - [address] 355381 04/27/2024 12:00 EST Appointment [facility] Hematology & Oncology [address] [phone] 05/02/2024 15:00 EST Telemedicine [facility] Hematology & Oncology [address] 405331 Alisson Carreon MD [address] [place] [address], [facility] 2 [place] [phone] 05/04/2024 10:15 EST Ancillary Procedure [facility] Cardiology - [address] [place], [place] [phone] 05/04/2024 11:30 EST Appointment [facility] Hematology & Oncology [address] 643991 05/04/2024 12:00 EST Appointment [facility] Hematology & Oncology [address] 722221 06/12/2024 13:00 EST Appointment [facility] Radiology CT - [address] [phone] documented as of this encounter Visit Diagnoses Not on filedocumented in this encounter Discontinued Medications Medication Sig Discontinue Reason Start Date End Da te diphenoxylate-atropine (LOMOTIL) 2.5-0.025 mg per tablet Take 2 tabs every 6 hours until control achieved, then take 2 tabs daily for maintenance. Reorder 06/09/2020 06/12/2020 documented as of this encounter Care Teams Forming Machine Operator Relationship Specialty Start Date End Date Linda Blancas MD [facility] [address] [place] [address] PCP - General 01/06/11 Adolfo Carreno MD [address] [place] [address], [facility] 2 [place] [phone] General Surgery 04/26/19 Augustina Colin MD PhD [address] [place] [address] 2 [place] [phone] Medical Oncology 04/26/19 documented as of this encounter
--- OUTSIDE RECORDS SUMMARY | 2024-03-20 14:58 | XMS_ITS | Encounter Summary ---
Author Organization [facility] Address [address] [place] [address] Care Team Providers Care Agricultural Chemicals Inspector Name Role Phone Linda Blancas MD Primary Care Provider [phone] Adolfo Carreno MD Unavailable [phone] Augustina Colin MD PhD Unavailable Unavailable Reason for Visit * Reason Onset Date Comments COVID-19 07/31/2020 Encounter Details Date Type Department Care Team (Late st Contact Info) Description 07/31/2020 Orders Only [facility] Plastic, Reconstructive & Cosmetic Surgery - [address], [address] [place] [address] Tylor Boss MD [address] [phone] Personal history of malignant neoplasm of breast [...] as of this encounter Progress Notes * Ping Low RN - 07/31/2020 0825 EST Order placed for COVID testing prior to surgery scheduled on 09/08/20. PING LOW RN 07/31/2020 11:05 documented in this encounter Plan of Treatment Upcoming Encounters Date Type Department Care Team (Late st Contact Info) Description 04/02/2024 10:30 EDT Appointment [facility] Interventional Radiology Unit [address] [place], [place] [phone] 04/02/2024 15:15 EDT Office Visit [facility] Surgical Oncology - [facility] [address] [place] [address] Adolfo Carreno MD 111 [facility], Level 2 [place] [phone] 04/05/2024 9:30 EDT Telemedicine [facility] Palliative Care Services [address] [place], [place] [phone] Chichi Woods MD 111 [facility], [address] [phone] 04/11/2024 15:00 EDT Telemedicine [facility] Hematology & Oncology - [address] 650391 Alisson Carreon MD [address] [place] [address] 2 [place] [phone] 04/13/2024 13:30 EDT Appointment [facility] Hematology & Oncology - [address] [phone] 04/13/2024 14:00 EDT Appointment [facility] Hematology & Oncology - [address] [phone] 04/16/2024 10:00 EST Telemedicine [facility] - [facility] Palliative Care Services [address] [place] [address] [phone] Chcihi Woods MD [address] [place] [address] [phone] 04/24/2024 9:00 EST Appointment [facility] Radiology CT Outpatient - [address] [id number] 04/24/2024 11:00 EST Appointment [facility] Breast Imaging - [address] 594001 04/27/2024 12:00 EST Appointment [facility] Hematology & Oncology - [address] [phone] 05/02/2024 15:00 EST Telemedicine [facility] Hematology & Oncology - [address] [phone] Alisson Carreon MD [address] [place] [address], [facility] 2 [place] [phone] 05/04/2024 10:15 EST Ancillary Procedure [facility] Cardiology - [address] [place] [address] 05/04/2024 11:30 EST Appointment [facility] Hematology & Oncology [address] [address] 05/04/2024 12:00 EST Appointment [facility] Hematology & Oncology [address] [address] 06/12/2024 13:00 EST Appointment [facility] Radiology CT - [address] 578251 documented as of this encounter Visit Diagnoses Diagnosis Personal history of malignant neoplasm of breast- Primary documented in this encounter Care Teams Agricultural Chemicals Inspector Relationship Specialty Start Date End Date Linda Blancas MD [facility] [address] [place], [place] 484[address] PCP - General 01/06/11 Adolfo Carreno MD [address] [place] [address] [phone] General Surgery 04/26/19 Augustina Colin MD PhD [address] [place] [phone] Medical Oncology 04/26/19 documented as of this encounter
--- OUTSIDE RECORDS SUMMARY | 2024-03-20 14:58 | XMS_ITS | Encounter Summary ---
Author Organization [facility] Address [address] [place] [address] Care Team Providers Care Overhauler Helper Name Role Phone Linda Blancas MD Primary Care Provider [phone] Adolfo Carreno MD Unavailable [phone] Augustina Colin MD PhD Unavailable Unavailable Reason for Visit * Reason Onset Date Comments Medications Refill 06/12/2020 Encounter Details Date Type Department Care Team (Late st Contact Info) Description 06/12/2020 Refill [facility] Cancer Center Hematology & Oncology - [facility] [address] [place], [place] 5277[address] Kathrin Candelaria, [place] Medications Refill Social History Tobacco Use Types [...] daily for maintenance. 30 Tab 1 06/12/2020 06/19/2020 documented in this encounter Plan of Treatment Upcoming Encounters Date Type Department Care Team (Late st Contact Info) Description 04/02/2024 10:30 EDT Appointment [facility] Interventional Radiology Unit [address] [place] [address] [phone] 04/02/2024 15:15 EDT Office Visit [facility] Surgical Oncology - [address] 055901 Adolfo Carreno MD [address] [place] [address] 2 [place] [phone] 04/05/2024 9:30 EDT Telemedicine [facility] - [facility] Palliative Care Services [address] [place], [place] [phone] Chichi Woods MD [address] [place] [address], [address] [phone] 04/11/2024 15:00 EDT Telemedicine [facility] Hematology & Oncology - [address] [phone] Alisson Carreon MD [address] [place] [address] 2 [place] [phone] 04/13/2024 13:30 EDT Appointment [facility] Hematology & Oncology - [address] [phone] 04/13/2024 14:00 EDT Appointment [facility] Hematology & Oncology [address] [address] 04/16/2024 10:00 EST Telemedicine [facility] - [facility] Palliative Care Services [address] [place] [address] [phone] Chichi Woods MD [address] [place] [address] [phone] 04/24/2024 9:00 EST Appointment [facility] Radiology CT Outpatient - [address] 977381 04/24/2024 11:00 EST Appointment [facility] Breast Imaging - [facility] [address] [id number] 04/27/2024 12:00 EST Appointment [facility] Hematology & Oncology - [address] 410191 05/02/2024 15:00 EST Telemedicine [facility] Hematology & Oncology [address] [phone] Alisson Carreon MD [address] [place] [address], [facility], Level [address] [place] [phone] 05/04/2024 10:15 EST Ancillary Procedure [facility] Cardiology - [place] [address] 05/04/2024 11:30 EST Appointment [facility] Hematology & Oncology - [address] [phone] 05/04/2024 12:00 EST Appointment [facility] Hematology & Oncology - [address] [address] 06/12/2024 13:00 [facility] Radiology CT - [address] [address] documented as of this encounter Visit Diagnoses Not on filedocumented in this encounter Discontinued Medications Medication Sig Discontinue Reason Start Date End Da te diphenoxylate-atropine (LOMOTIL) 2.5-0.025 mg per tablet Take 2 tabs every 6 hours until control achieved, then take 2 tabs daily for maintenance. Reorder 06/12/2020 06/12/2020 documented as of this encounter Care Teams Overhauler Helper Relationship Specialty Start Date End Date Linda Blancas MD [address] [place] [address] 30 [place] [address] PCP - General 01/06/11 Adolfo Carreno MD [address] [place] [address] [phone] General Surgery 04/26/19 Augustina Colin MD PhD [address] [place] [phone] Medical Oncology 04/26/19 documented as of this encounter
--- OUTSIDE RECORDS SUMMARY | 2024-03-20 14:58 | XMS_ITS | Encounter Summary ---
Author Organization [facility] Address [address] [place] [address] Care Team Providers Care Staple Shear Operator Name Role Phone Linda Blancas MD Primary Care Provider [phone] Adolfo Carreno MD Unavailable [phone] Augustina Colin MD PhD Unavailable Unavailable Encounter Details Date Type Department Care Team (Latest Contact Info) Description 05/26/2020 9:30 EST Phlebotomy Only [facility] Hematology & Oncology - Main [place] [address] [place] [address] Blood Doctor, [facility] Hem Onc Metastatic breast [...] Progress Notes * Perla Wynne MA - 05/26/2020 0930 EST Venipuncture performed for Dittus Per orders of Dittus Number of attempts 1 LF AC I was supervised by Supa who was present and immediately available in the office suite. PERLA WYNNE MA 05/26/2020 9:49 documented in this encounter Plan of Treatment Upcoming Encounters Date Type Department Care Team (Late st Contact Info) Description 04/02/2024 10:30 EDT Appointment [facility] Interventional Radiology Unit [address] [place] [address] [phone] 04/02/2024 15:15 EDT Office Visit [facility] Surgical Oncology - [address] [phone] Adolfo Carreno MD [address] [place] [address], [facility] 2 [place] [phone] 04/05/2024 9:30 EDT Telemedicine [facility] - [facility] [address] [place], [place] 253081 Chichi Woods MD [address] [place] [address] [phone] 04/11/2024 15:00 EDT Telemedicine [facility] Hematology & Oncology - [address] 801551 Alisson Carreon MD [address] [place] [address], Level 2 [place] [phone] 04/13/2024 13:30 EDT Appointment [facility] Hematology & Oncology [address] [phone] 04/13/2024 14:00 EDT Appointment [facility] Hematology & Oncology - [address] [phone] 04/16/2024 10:00 EST Telemedicine [facility] - [facility] [address] [place] [address] [phone] Chichi Woods MD [address] [place] [address], [address] [phone] 04/24/2024 9:00 EST Appointment [facility] Radiology CT Outpatient - [address] [id number] 04/24/2024 11:00 EST Appointment [facility] Breast Imaging - [facility] S [address] [phone] 04/27/2024 12:00 EST Appointment [facility] Hematology & Oncology [address] 174721 05/02/2024 15:00 EST Telemedicine [facility] Hematology & Oncology - [address] [phone] Alisson Carreon MD [address] [place] [address], Level 2 [place] [phone] 05/04/2024 10:15 EST Ancillary Procedure [facility] Cardiology - [address] [place], [place] [phone] 05/04/2024 11:30 EST Appointment [facility] Hematology & Oncology - [address] [address] 05/04/2024 12:00 EST Appointment [facility] Hematology & Oncology - [address] [address] 06/12/2024 13:00 EST Appointment [facility] Radiology CT - [address] [address] documented as of this encounter Procedures Procedure Name Priority Date/Time Associated Diagnosis Comments COMPREHENSIVE METABOLIC PANEL (ONCOLOGY USE ONLY-INC MG) STAT 05/26/2020 9:46 EST Metastatic breast cancer (HCC-CMS) documented in this encounter Results * (ABNORMAL) COMPREHENSIVE METABOLIC PANEL (ONCOLOGY USE ONLY-INC MG) (05/26/2020 9:46 EST) Sodium 142 136 - 145 mEq/L 05/26/2020 10:24 [facility] Potassium 4.1 3.5 - 5.0 mEq/L 05/26/2020 10:24 [facility] Chloride 107 96 - 110 mEq/L 05/26/2020 10:24 [facility] CO2 Total 27 22 - 32 mEq/L 05/26/2020 10:24 [facility] Glucose 108(H) 70 - 100 mg/dL 05/26/2020 10:24 [facility] BUN 17 10 - 26 mg/dL 05/26/2020 10:24 [facility] Creatinine 0.87 0.52 - 1.04 mg/dL 05/26/2020 10:24 [facility] eGFR 74 >60 mL/min/1.7 3m2 05/26/2020 10:24 [facility] Comment:eGFR calculated usin g CKD-EPI equation for non- Americans. Multiply eGFR by 1.16 for patients. Total Protein 6.9 6.3 - 8.2 g/dL 05/26/2020 10:24 [facility] Albumin 4.0 3.4 - 4.9 g/dL 05/26/2020 10:24 [facility] Alkaline Phosphatase 71 38 - 126 U/L 05/26/2020 10:24 [facility] AST 33 15 - 46 U/L 05/26/2020 10:24 [facility] ALT 21 <35 U/L 05/26/2020 10:24 [facility] Bilirubin, Total 0.9 <1.4 mg/dL 05/26/20 20 10:24 [facility] Calcium 9.2 8.5 - 10.5 mg/dL 05/26/2020 10:24 [facility] Calculated Calcium 9.2 8.5 - 10.5 mg/dL 05/26/2020 10:24 [facility] Magnesium 2.2 1.7 - 2.8 mg/dL 05/26/2020 10:24 [facility] Blood VENOUS BLOOD / Unknown Venipuncture / Unknown 05/26/2020 9:46 EST 05/26/2020 9:48 EST Augustina Colin MD PhD CHEMISTRY & BLOOD GA S ORDERABLES Performing Organization Address [facility]/State/[facility] Co de Phone Number [facility] [address] [place] [address] documented in this encounter Visit Diagnoses Diagnosis Metastatic breast cancer- Primary documented in this encounter Care Teams Staple Shear Operator Relationship Specialty Start Date End Date Linda Blancas MD [address] [place] [address] 30 [place] [address] PCP - General 01/06/11 Adolfo Carreno MD [address] [place] [phone] General Surgery 04/26/19 Augustina Colin MD PhD [address] [place] [phone] Medical Oncology 04/26/19 documented as of this encounter
--- OUTSIDE RECORDS SUMMARY | 2024-03-20 14:58 | XMS_ITS | Encounter Summary ---
Author Organization [facility] Address [address] [place] [address] Care Team Providers Care Stone Repairer Name Role Phone Linda Blancas MD Primary Care Provider [phone] Adolfo Carreno MD Unavailable [phone] Augustina Colin MD PhD Unavailable Unavailable Encounter Details Date Type Department Care Team (Late st Contact Info) Description 05/19/2020 Orders Only [facility] Cancer Center Hematology & Oncology - Main [place] [address] [place] [address] Hetal Tan, RN [address] [place] [address] Osteopenia of necks of both femurs (Primary [...] [facility] Interventional Radiology Unit [address] [place] [address] [phone] 04/02/2024 15:15 EDT Office Visit [facility] Surgical Oncology - [address] 186691 Adolfo Carreno MD [address] [place] [address] 2 [place] [phone] 04/05/2024 9:30 EDT Telemedicine [facility] - [facility] Palliative Care Services [address] [place] [address] [phone] Chichi Woods MD [address] [place] [phone] 04/11/2024 15:00 EDT Telemedicine [facility] Hematology & Oncology [address] 749751 Alisson Carreon MD [address] [place] [phone] 04/13/2024 13:30 EDT Appointment [facility] Hematology & Oncology [address] [id number] 04/13/2024 14:00 EDT Appointment [facility] Hematology & Oncology - [address] 253441 04/16/2024 10:00 EST Telemedicine [facility] - [facility] Palliative Care Services [address] [place] [address] [phone] Chichi Woods MD [address] [place] [address], [address] [phone] 04/24/2024 9:00 EST Appointment [facility] Radiology CT Outpatient - [address] [id number] 04/24/2024 11:00 EST Appointment [facility] Breast Imaging - [address] 455271 04/27/2024 12:00 EST Appointment [facility] Hematology & Oncology - [address] [phone] 05/02/2024 15:00 EST Telemedicine [facility] Hematology & Oncology - [address] 846271 Alisson Carreon MD [address] [place] [address], Level [address] [place] [phone] 05/04/2024 10:15 EST Ancillary Procedure [facility] Cardiology - [place] [address] 05/04/2024 11:30 EST Appointment [facility] Hematology & Oncology - [address] 164691 05/04/2024 12:00 EST Appointment [facility] Hematology & Oncology [address] 647171 06/12/2024 13:00 EST Appointment [facility] Radiology CT - [address] [phone] documented as of this encounter Visit Diagnoses Diagnosis Osteopenia of necks of both femurs- Primary documented in this encounter Care Teams Stone Repairer Relationship Specialty Start Date End Date Linda Blancas MD [address] [place] [address] 30 [place] [address] PCP - General 01/06/11 Adolfo Carreno MD [address] [place] [phone] General Surgery 04/26/19 Augustina Colin MD PhD [address] [place] [phone] Medical Oncology 04/26/19 documented as of this encounter
--- OUTSIDE RECORDS SUMMARY | 2024-03-20 14:58 | XMS_ITS | Encounter Summary ---
Author Organization [facility] Address [address] [place] [address] Care Team Providers Care Fuels Engineer Name Role Phone Linda Blancas MD Primary Care Provider [phone] Adolfo Carreno MD Unavailable [phone] Augustina Colin MD PhD Unavailable Unavailable Encounter Details Date Type Department Care Team (Late st Contact Info) Description 08/04/2020 Orders Only [facility] Cancer Center Hematology & Oncology - [facility] [address] [place] [address] Lorri Barber RN Osteopenia of necks of both femurs [...] Description 04/02/2024 10:30 EDT Appointment [facility] Interventional Radiology Unit [address] [place] [address] [phone] 04/02/2024 15:15 EDT Office Visit [facility] Surgical Oncology - [address] [address] [phone] Adolfo Carreno MD [address] [place] [address] [phone] 04/05/2024 9:30 EDT Telemedicine [facility] - [facility] Palliative Care Services [address] [place] [address] [phone] Chichi Woods MD [address] [place] [address] [phone] 04/11/2024 15:[address] [facility] Hematology & Oncology [address] [phone] Alisson Carreon MD [address] [place] [address] [phone] 04/13/2024 13:[address] [facility] Hematology & Oncology [address] [id number] 04/13/2024 14:[address] [facility] Hematology & Oncology - [address] [address] 04/16/2024 10:00 EST Telemedicine [facility] - [facility] Palliative Care Services [address] [place] [address] [phone] Chichi Woods MD 111 [facility], [address] [phone] 04/24/2024 9:00 EST Appointment [facility] Radiology CT Outpatient - [address] [address] 04/24/2024 11:00 EST Appointment [facility] Breast Imaging - [facility] S [address] 117111 04/27/2024 12:[address] [facility] Hematology & Oncology - [address] 386151 05/02/2024 15:[address] [facility] Hematology & Oncology [address] [phone] Alisson Carreon MD [address] [place] [address], Level 2 [place] [phone] 05/04/2024 10:15 EST Ancillary Procedure [facility] Cardiology [place] [address] 05/04/2024 11:[address] [facility] Hematology & Oncology - [address] [address] 05/04/2024 12:[address] [facility] Hematology & Oncology - [address] [id number] 06/12/2024 13:00 EST [facility]ointment [facility] Radiology CT - [address] [address] documented as of this encounter Visit Diagnoses Diagnosis Osteopenia of necks of both femurs- Primary documented in this encounter Care Teams Fuels Engineer Relationship Specialty Start Date End Date Linda Blancas MD [facility] [address] [place] [address] PCP - General 01/06/11 Adolfo Carreno MD [address] [place] [address] 2 [place] [phone] General Surgery 04/26/19 Augustina Colin MD PhD [address] [place] [address], [facility] 2 [place] [phone] Medical Oncology 04/26/19 documented as of this encounter
--- OUTSIDE RECORDS SUMMARY | 2024-03-20 14:58 | XMS_ITS | Encounter Summary ---
Author Organization [facility] Address [address] [place] [address] Care Team Providers Care Visual And Stock Associate Name Role Phone Linda Blancas MD Primary Care Provider [phone] Adolfo Carreno MD Unavailable [phone] Augustina Colin MD PhD Unavailable Unavailable Reason for Visit * Reason Onset Date Comments COVID-19 05/15/2020 Encounter Details Date Type Department Care Team (Late st Contact Info) Description 05/15/2020 Telephone [facility] - [employer] [address] [place] [address] Tylor Boss MD [address] [place] [address] COVID-19 Social History Tobacco Use Types [...] encounter Miscellaneous Notes * Telephone Encounter - Homa Chavez - 05/15/2020 1422 EST Called the patient for Covid testing prior to procedure on 05/26. Patient stated that they have been scheduled at [facility] on 05/19 at 12;30 pm. documented in this encounter Plan of Treatment Upcoming Encounters Date Type Department Care Team (Late st Contact Info) Description 04/02/2024 10:30 EDT Appointment [facility] Interventional Radiology Unit [address] [place] [address] [phone] 04/02/2024 15:15 EDT Office Visit [facility] Surgical Oncology - [address] [phone] Adolfo Carreno MD 111 [facility] 2 [place] [phone] 04/05/2024 9:[address] [facility] Palliative Care Services [address] [place], [place] 389791 Chichi Woods MD [address] [phone] 04/11/2024 15:00 EDT Telemedicine [facility] Hematology & Oncology - [facility] [address] [place], [place] [phone] Alisson Carreon MD [address] [place] [address], Level [address] [place] [phone] 04/13/2024 13:30 EDT Appointment [facility] Hematology & Oncology - [address] [phone] 04/13/2024 14:00 EDT Appointment [facility] Hematology & Oncology - [address] [phone] 04/16/2024 10:00 EST Telemedicine [facility] - [facility] [address] [place] [address] [phone] Chichi Woods MD [address] [place] [address], [address] [phone] 04/24/2024 9:00 EST Appointment [facility] Radiology CT Outpatient - [address] [id number] 04/24/2024 11:00 EST Appointment [facility] Breast Imaging - [facility] S [address] [id number] 04/27/2024 12:00 EST Appointment [facility] Hematology & Oncology - [address] [phone] 05/02/2024 15:00 EST Telemedicine [facility] Hematology & Oncology - [address] [phone] Alisson Carreon MD [address] [place] [address], Level [address] [place] [phone] 05/04/2024 10:15 EST Ancillary Procedure [facility] Cardiology - [address] [place], [place] [phone] 05/04/2024 11:30 EST Appointment [facility] [place] Hematology & Oncology - [address] [address] 05/04/2024 12:00 EST Appointment [facility] Hematology & Oncology [address] [address] 06/12/2024 13:00 EST Appointment [facility] Radiology CT - [address] [address] documented as of this encounter Visit Diagnoses Not on filedocumented in this encounter Additional Health Concerns Infection Onset Date Last Indicated Resolved Time R/O COVID-19 12/12/2023 12/12/2023 12/12/2023 15:3 5 EDT R/O COVID-19 01/08/2024 01/08/2024 01/08/2024 18:2 6 EDT R/O COVID-19 01/16/2024 01/16/2024 01/16/2024 17:5 0 EDT documented as of this encounter Care Teams Visual And Stock Associate Relationship Specialty Start Date End Date Linda Blancas MD [address] [place] [address] PCP - General 01/06/11 Adolfo Carreno MD [address] [place] [phone] General Surgery 04/26/19 Augustina Colin MD PhD [address] [place] [phone] Medical Oncology 04/26/19 documented as of this encounter
--- OUTSIDE RECORDS SUMMARY | 2024-03-20 14:58 | XMS_ITS | Encounter Summary ---
Author Organization [facility] Address [address] [place] [address] Care Team Providers Care Peoplesoft Business Analyst Name Role Phone Linda Blancas MD Primary Care Provider [phone] Adolfo Carreno MD Unavailable [phone] Augustina Colin MD PhD Unavailable Unavailable Reason for Visit * Reason Onset Date Comments Medications Refill 06/16/2020 Encounter Details Date Type Department Care Team (Late st Contact Info) Description 06/16/2020 Telephone [facility] Cancer Center Hematology & Oncology - Main [place] [address] [place], [place] [phone] Augustina Colin, PhD Medications Refill Social History [...] encounter Miscellaneous Notes * Telephone Encounter - Kathrin Candelaria RN - 06/16/2020 1845 EST Script refilled. * Telephone Encounter - Deana Hare - 06/16/2020 1244 EST Medication Request Medication: Verzenio 150 Refill due: 06/16/20 Pharmacy: [facility] documented in this encounter Plan of Treatment Upcoming Encounters Date Type Department Care Team (Late st Contact Info) Description 04/02/2024 10:30 EDT Appointment [facility] Interventional Radiology Unit [address] [place] [address] 04/02/2024 15:15 EDT Office Visit [facility] Surgical Oncology - [facility] [address] [place], [place] 173041 Adolfo Carreno MD 111 [facility], Level 2 [place] [phone] 04/05/2024 9:30 EDT Telemedicine [facility] - [facility] Palliative Care Services [address] [place], [place] [phone] Chichi Woods MD 111 [facility] [address] [place] [phone] 04/11/2024 15:00 EDT Telemedicine [facility] Hematology & Oncology - [address] 525081 Alisson Carreon MD [address] [place] [address] 2 [place] [phone] 04/13/2024 13:30 EDT Appointment [facility] Hematology & Oncology - [address] [phone] 04/13/2024 14:00 EDT Appointment [facility] Hematology & Oncology - [address] [phone] 04/16/2024 10:00 EST Telemedicine [facility] - [facility] Palliative Care Services [address] [place] [address] [phone] Chichi Woods MD [address] [place] [address] [phone] 04/24/2024 9:00 EST Appointment [facility] Radiology CT Outpatient - [address] [id number] 04/24/2024 11:00 EST Appointment [facility] Breast Imaging - [address] 355461 04/27/2024 12:00 EST Appointment [facility] Hematology & Oncology - [address] [phone] 05/02/2024 15:00 EST Telemedicine [facility] Hematology & Oncology - [address] [phone] Alisson Carreon MD [address] [place] [address], [facility] 2 [place] [phone] 05/04/2024 10:15 EST Ancillary Procedure [facility] Cardiology - [place] [address] 05/04/2024 11:30 EST Appointment [facility] Center Hematology & Oncology - [address] [address] 05/04/2024 12:00 EST Appointment [facility] Hematology & Oncology - [address] [address] 06/12/2024 13:00 EST Appointment [facility] Radiology CT - [address] [address] documented as of this encounter Visit Diagnoses Not on filedocumented in this encounter Care Teams Peoplesoft Business Analyst Relationship Specialty Start Date End Date Linda Blancas MD [facility] [address] [place] [address] PCP - General 01/06/11 Adolfo Carreno MD [address] [place] [address] [phone] General Surgery 04/26/19 Augustina Colin MD PhD [address] [place] [phone] Medical Oncology 04/26/19 documented as of this encounter
--- OUTSIDE RECORDS SUMMARY | 2024-03-20 14:58 | XMS_ITS | Encounter Summary ---
Author Organization [facility] Address [address] [place] [address] Care Team Providers Care Street Light Cleaner Name Role Phone Linda Blancas MD Primary Care Provider [phone] Adolfo Carreno MD Unavailable [phone] Augustina Colin MD PhD Unavailable Unavailable Encounter Details Date Type Department Care Team (Late st Contact Info) Description 05/30/2020 Orders Only [facility] Cancer Center Hematology & Oncology - [address] 208661 Mira Acuña, DAYNE [address] [facility], Level 2 [place] [address] Social History Tobacco Use Types [...] tabs daily for maintenance. 30 Tab 1 05/30/2020 06/09/2020 documented in this encounter Plan of Treatment Upcoming Encounters Date Type Department Care Team (Late st Contact Info) Description 04/02/2024 10:30 EDT Appointment [facility] Interventional Radiology Unit [address] [place] [address] [phone] 04/02/2024 15:15 EDT Office Visit [facility] Surgical Oncology - [address] [phone] Adolfo Carreno MD [address] [place] [address] [phone] 04/05/2024 9:30 EDT Telemedicine [facility] - [facility] Palliative Care Services [address] [place] [address] [phone] Chichi Woods MD [address] [place] [address], [address] [phone] 04/11/2024 15:00 EDT Telemedicine [facility] Hematology & Oncology - [address] [phone] Alisson Carreon MD [address] [place] [address] [phone] 04/13/2024 13:30 EDT Appointment [facility] Hematology & Oncology - [address] [phone] 04/13/2024 14:00 EDT Appointment [facility] Hematology & Oncology [address] [phone] 04/16/2024 10:00 EST Telemedicine [facility] - [facility] Palliative Care Services [address] [place] [address] [phone] Chichi Woods MD [address] [place] [address], [address] [phone] 04/24/2024 9:00 EST Appointment [facility] Radiology CT Outpatient - [address] 567001 04/24/2024 11:00 EST Appointment [facility] Breast Imaging - [facility] S [address] [place], [place] 937741 04/27/2024 12:00 EST Appointment [facility] Hematology & Oncology [address] [phone] 05/02/2024 15:00 EST Telemedicine [facility] Hematology & Oncology - [address] 389341 Alisson Carreon MD [address] [place] [address], [facility], [facility] 2 [place] [phone] 05/04/2024 10:15 EST Ancillary Procedure [facility] Cardiology [place] [place] [address] 05/04/2024 11:30 EST Appointment [facility] Hematology & Oncology [address] 691033 [phone] 05/04/2024 12:00 EST Appointment [facility] Cancer Center Hematology & Oncology - [address] [address] 06/12/2024 13:00 EST Appointment [facility] Center Radiology CT - [address] [address] documented as of this encounter Visit Diagnoses Not on filedocumented in this encounter Care Teams Street Light Cleaner Relationship Specialty Start Date End Date Linda Blancas MD [facility] [address] [place] [address] PCP - General 01/06/11 Adolfo Carreno MD [address] [place] [address] 2 [place] [phone] General Surgery 04/26/19 Augustina Colin MD PhD [address] [place] [address] 2 [place] [phone] Medical Oncology 04/26/19 documented as of this encounter
--- OUTSIDE RECORDS SUMMARY | 2024-03-20 14:58 | XMS_ITS | Encounter Summary ---
Author Organization [facility] Address [address] [place] [address] Care Team Providers Care Orthopedic Nurse Name Role Phone Linda Blancas MD Primary Care Provider [phone] Adolfo Carreno MD Unavailable [phone] Augustina Colin MD PhD Unavailable Unavailable Reason for Visit * Reason Onset Date Comments Update 06/27/2020 Encounter Details Date Type Department Care Team (Late st Contact Info) Description 06/27/2020 Telephone [facility] Cancer Center Hematology & Oncology - Main [place] [address] [place], [place] [phone] Bambi Coleman RN Update Social History Tobacco Use Types Packs/Day Years [...] encounter Miscellaneous Notes * Telephone Encounter - Bambi Coleman RN - 06/27/2020 1213 EST rec'd direct call from patient who is currently hospitalized at [facility] in [place] for covid 19. She is calling to inform that she needs to cancel her appointments for next week. Wanted to let Dr Colin know that she is fighting the good fight and she is in good spirits. documented in this encounter Plan of Treatment Upcoming Encounters Date Type Department Care Team (Late st Contact Info) Description 04/02/2024 10:30 EDT Appointment [facility] Interventional Radiology Unit [address] [place] [address] [phone] 04/02/2024 15:15 EDT Office Visit [facility] Surgical Oncology - [address] [phone] Adolfo Carreno MD [address] [facility], [facility] 2 [place] [phone] 04/05/2024 9:30 EDT Telemedicine [facility] - [facility] Palliative Care Services [address] [place], [place] [phone] Chichi Woods MD 111 [facility], [address] [phone] 04/11/2024 15:00 EDT Telemedicine [facility] Hematology & Oncology - [facility] [address] [place], [place] 463171 Alisson Carreon MD [address] [place] [address], [facility] 2 [place] [phone] 04/13/2024 13:30 EDT Appointment [facility] Hematology & Oncology - [address] [phone] 04/13/2024 14:00 EDT Appointment [facility] Hematology & Oncology - [address] 145321 04/16/2024 10:00 EST Telemedicine [facility] - [facility] Palliative Care Services [address] [place] [address] [phone] Chichi Woods MD [address] [place] [address] [phone] 04/24/2024 9:00 EST Appointment [facility] Radiology CT Outpatient - [address] [id number] 04/24/2024 11:00 EST Appointment [facility] Breast Imaging - [facility] S [address] 515281 04/27/2024 12:00 EST Appointment [facility] Hematology & Oncology - [address] [phone] 05/02/2024 15:00 EST Telemedicine [facility] Hematology & Oncology - [address] 141651 Alisson Carreon MD [address] [place] [address], [facility] 2 [place] [phone] 05/04/2024 10:15 EST Ancillary Procedure [facility] Cardiology - [address] [place], [place] [phone] 05/04/2024 11:30 EST Appointment [facility] Cancer Center Hematology & Oncology - [address] [address] 05/04/2024 12:00 EST Appointment [facility] Hematology & Oncology - [address] [address] 06/12/2024 13:00 EST Appointment [facility] Radiology CT - [address] 024031 documented as of this encounter Visit Diagnoses Not on filedocumented in this encounter Care Teams Orthopedic Nurse Relationship Specialty Start Date End Date Linda Blancas MD [facility] [address] [place] [address] PCP - General 01/06/11 Adolfo Carreno MD [address] [place] [address] [phone] General Surgery 04/26/19 Augustina Colin MD PhD [address] [place] [phone] Medical Oncology 04/26/19 documented as of this encounter
--- OUTSIDE RECORDS SUMMARY | 2024-03-20 14:58 | XMS_ITS | Encounter Summary ---
Author Organization [facility] Address [address] [place] [address] Care Team Providers Care Spray Drier Operator Name Role Phone Linda Blancas MD Primary Care Provider [phone] Adolfo Carreno MD Unavailable [phone] Augustina Colin MD PhD Unavailable Unavailable Reason for Visit * Reason Onset Date Comments COVID-19 05/26/2020 Encounter Details Date Type Department Care Team (Late st Contact Info) Description 05/26/2020 Orders Only [facility] Plastic, Reconstructive & Cosmetic Surgery - [address], [address] [place] [address] Tylor Boss MD [address] [place] [phone] Personal history of malignant neoplasm of breast (Primary Dx); Malignant neoplasm of nipple of right breast in female, unspecified estrogen receptor status (HCC-CMS) Social History Tobacco Use Types Packs/Day [...] as of this encounter Progress Notes * Khurram Rios RN - 05/26/2020 3431 EST Preoperative screening, COVID-19, lab ordered. KHURRAM RIOS RN documented in this encounter Plan of Treatment Upcoming Encounters Date Type Department Care Team (Late st Contact Info) Description 04/02/2024 10:30 EDT Appointment [facility] Interventional Radiology Unit [address] [place], [place] 696211 04/02/2024 15:15 EDT Office Visit [facility] Surgical Oncology - [facility] [address] [place], [place] [phone] Adolfo Carreno MD 111 [facility], Level 2 [place] [phone] 04/05/2024 9:30 EDT Telemedicine [facility] - [facility] Palliative Care Services [address] [place], [place] [phone] Chichi Woods MD 111 [facility], [address] [phone] 04/11/2024 15:00 EDT Telemedicine [facility] Hematology & Oncology - [address] 179991 Alisson Carreon MD [address] [place] [address] 2 [place] [phone] 04/13/2024 13:30 EDT Appointment [facility] Hematology & Oncology - [address] [phone] 04/13/2024 14:00 EDT Appointment [facility] Hematology & Oncology - [address] [phone] 04/16/2024 10:00 EST Telemedicine [facility] - [facility] Palliative Care Services [address] [place] [address] [phone] Chichi Woods MD [address] [place] [address] [phone] 04/24/2024 9:00 EST Appointment [facility] Radiology CT Outpatient - [address] [id number] 04/24/2024 11:00 EST Appointment [facility] Breast Imaging - [address] [id number] 04/27/2024 12:00 EST Appointment [facility] Hematology & Oncology - [address] [phone] 05/02/2024 15:00 EST Telemedicine [facility] Hematology & Oncology - [address] [phone] Alisson Carreon MD [address] [place] [address], [facility] 2 [place] [phone] 05/04/2024 10:15 EST Ancillary Procedure [facility] Cardiology [place] [place] [address] 05/04/2024 11:30 EST Appointment [facility] Center Hematology & Oncology - [address] [address] 05/04/2024 12:00 EST Appointment [facility] Hematology & Oncology - [address] [address] 06/12/2024 13:00 EST Appointment [facility] Center Radiology CT - [address] [address] documented as of this encounter Visit Diagnoses Diagnosis Personal history of malignant neoplasm of breast- Primary Malignant neoplasm of nipple of right breast in female, unspecified estrogen receptor status ([facility]) documented in this encounter Care Teams Spray Drier Operator Relationship Specialty Start Date End Date Linda Blancas MD [address] [place] [address] 30 [place] [address] PCP - General 01/06/11 Adolfo Carreno MD [address] [place] [address] 2 [place] [phone] General Surgery 04/26/19 Augustina Colin MD PhD [address] [place] [address] 2 [place] [phone] Medical Oncology 04/26/19 documented as of this encounter
--- OUTSIDE RECORDS SUMMARY | 2024-03-20 14:58 | XMS_ITS | Encounter Summary ---
Author Organization [facility] Address [address] [place] [address] Care Team Providers Care Assembler [employer] Name Role Phone Linda Blancas MD Primary Care Provider [phone] Adolfo Carreno MD Unavailable Augustina Colin MD PhD Unavailable Unavailable Reason for Visit * Reason Onset Date Comments Pharmacy 06/10/2020 Encounter Details Date Type Department Care Team (Late st Contact Info) Description 06/10/2020 Telephone [facility] Cancer Center Hematology & Oncology - Main [place] [address] [place], [place] 397061 Augustina Colin MD PhD Pharmacy Social History Tobacco Use Types Packs/Day Years [...] encounter Miscellaneous Notes * Telephone Encounter - Kiana Avina - 06/10/2020 1031 EST Calling with Rx question on Lomotil. This patient gets this regularly, 30 tablets on 05/30/20 and 30 more on 06/04/20, 06/10/20 30 more. Should they be filling it again so soon? Please call. documented in this encounter Plan of Treatment Upcoming Encounters Date Type Department Care Team (Late st Contact Info) Description 04/02/2024 10:30 EDT Appointment [facility] Interventional Radiology Unit [address] [place] [address] [phone] 04/02/2024 15:15 EDT Office Visit [facility] Surgical Oncology - [facility] [address], [place] [phone] Adolfo Carreno MD 111 [facility], Level 2 [place] [phone] 04/05/2024 9:30 EDT Telemedicine [facility] - [facility] Palliative Care Services [address] [place], [place] [phone] Chichi Woods MD 111 [facility], [address] [phone] 04/11/2024 15:00 EDT Telemedicine [facility] Hematology & Oncology - [address] [phone] Alisson Carreon MD [address] [place] [address], [facility] 2 [place] [phone] 04/13/2024 13:30 EDT Appointment [facility] Hematology & Oncology - [address] [phone] 04/13/2024 14:00 EDT Appointment [facility] Hematology & Oncology - [address] [phone] 04/16/2024 10:00 EST Telemedicine [facility] - [facility] Palliative Care Services [address] [place] [address] [phone] Chichi Woods MD [address] [place] [address], [address] [phone] 04/24/2024 9:00 EST Appointment [facility] Radiology CT Outpatient - [address] 806281 04/24/2024 11:00 EST Appointment [facility] Breast Imaging - [facility] S [address] [id number] 04/27/2024 12:00 EST Appointment [facility] Hematology & Oncology - [address] [phone] 05/02/2024 15:00 EST Telemedicine [facility] Hematology & Oncology - [address] 575261 Alisson Carreon MD [address] [place] [address], [facility] 2 [place] [phone] 05/04/2024 10:15 EST Ancillary Procedure [facility] Cardiology - [address] [place] [address] 05/04/2024 11:30 EST Appointment [facility] Hematology & Oncology [address] [address] 05/04/2024 12:00 EST Appointment [facility] Hematology & Oncology [address] 411761 06/12/2024 13:00 EST Appointment [facility] Radiology CT - [address] 175071 documented as of this encounter Visit Diagnoses Not on filedocumented in this encounter Care Teams Assembler [employer] Power Plant Relationship Specialty Start Date End Date Linda Blancas MD [facility] [address] [place] [address] PCP - General 01/06/11 Adolfo Carreno MD [address] [place] [address] [phone] General Surgery 04/26/19 Augustina Colin MD PhD [address] [place] [phone] Medical Oncology 04/26/19 documented as of this encounter
--- OUTSIDE RECORDS SUMMARY | 2024-03-20 14:58 | XMS_ITS | Encounter Summary ---
Author Organization [facility] Address [address] [place] [address] Care Team Providers Care Clinical Document Improvement Educator Name Role Phone Linda Blancas MD Primary Care Provider [phone] Adolfo Carreno MD Unavailable [phone] Augustina Colin MD PhD Unavailable Unavailable Encounter Details Date Type Department Care Team (Late st Contact Info) Description 06/19/2020 Orders Only [facility] Cancer Center Hematology & Oncology - [facility] [address] [place] [address] Melyssa Alcocer, SHELLEY Malignant neoplasm of right female breast, unspecified estrogen receptor status, unspecified site of breast (HCC-CMS) (Primary Dx); Osteopenia of necks of both femurs Social [...] System [facility] Interventional Radiology Unit [address] [place] [address] [phone] 04/02/2024 15:15 EDT Office Visit [facility] Surgical Oncology - [address] 175351 Adolfo Carreno MD [address] [place] [address] 2 [place] [phone] 04/05/2024 9:30 EDT Telemedicine [facility] - [facility] Palliative Care Services [address] [place] [address] [phone] Chichi Woods MD [address] [place] [address] [phone] 04/11/2024 15:00 EDT Telemedicine [facility] Hematology & Oncology - [address] [phone] Alisson Carreon MD [address] [place] [address] 2 [place] [phone] 04/13/2024 13:30 EDT Appointment [facility] Hematology & Oncology [address] [phone] 04/13/2024 14:00 EDT Appointment [facility] Hematology & Oncology - [address] 629891 04/16/2024 10:00 EST Telemedicine [facility] - [facility] Palliative Care Services [address] [place] [address] [phone] Chichi Woods MD [address] [place] [address], [address] [phone] 04/24/2024 9:00 EST Appointment [facility] Radiology CT Outpatient - [address] [id number] 04/24/2024 11:00 EST Appointment [facility] Breast Imaging - [facility] S [address] 638851 04/27/2024 12:00 EST Appointment [facility] Hematology & Oncology - [address] [phone] 05/02/2024 15:00 EST Telemedicine [facility] Hematology & Oncology - [address] 800441 Alisson Carreon MD [address] [place] [address], Level 2 [place] [phone] 05/04/2024 10:15 EST Ancillary Procedure [facility] Cardiology - [place] [address] 05/04/2024 11:30 EST Appointment [facility] Hematology & Oncology - [address] [phone] 05/04/2024 12:00 EST Appointment [facility] Hematology & Oncology - [address] [address] 06/12/2024 13:00 EST Appointment [facility] Radiology CT - [address] 156191 documented as of this encounter Visit Diagnoses Diagnosis Malignant neoplasm of right female breast, unspecified estrogen receptor status, unspecified site of breast ([facility])- Primary Osteopenia of necks of both femurs documented in this encounter Orders Appointment Requests Count Last Ordered Date Fi rst Ordered Date ONCBCN INJECTION APPOINTMENT REQUEST 1 08/11 ONCBCN CLINIC APPOINTMENT REQUEST 1 021 documented in this encounter Care Teams Clinical Document Improvement Educator Relationship Specialty Start Date End Date Linda Blancas MD [facility] [address] [place] [address] PCP - General 01/06/11 Adolfo Carreno MD [address] [place] [address] [phone] General Surgery 04/26/19 Augustina Colin MD PhD [address] [place] [phone] Medical Oncology 04/26/19 documented as of this encounter
--- OUTSIDE RECORDS SUMMARY | 2024-03-20 14:58 | XMS_ITS | Encounter Summary ---
Author Organization [facility] Address [address] [place] [address] Care Team Providers Care International Account Executive Name Role Phone Linda Blancas MD Primary Care Provider [phone] Adolfo Carreno MD Unavailable [phone] Augustina Colin MD PhD Unavailable Unavailable Encounter Details Date Type Department Care Team (Late st Contact Info) Description 05/23/2020 Orders Only [facility] Cancer Center Hematology & Oncology - [address] [address] Santi Gonzalez, PA-C [address] [place] [address], [facility] 2 [place] [phone] Social History Tobacco Use Types [...] EDT Appointment [facility] Interventional Radiology Unit [address] [place] [address] [phone] 04/02/2024 15:15 EDT Office Visit [facility] Surgical Oncology - [address] [phone] Adolfo Carreno MD [address] [place] [address] 2 [place] [phone] 04/05/2024 9:30 EDT Telemedicine [facility] Pall[facility] Services [address] [place] [address] [phone] Chichi Woods MD [address] [place] [address] [phone] 04/11/2024 15:00 EDT Telemedicine [facility] Hematology & Oncology [address] [phone] Alsison Carreon MD [address] [place] [address] [phone] 04/13/2024 13:30 EDT Appointment [facility] Hematology & Oncology [address] [phone] 04/13/2024 14:00 EDT Appointment [facility] Hematology & Oncology - [address] [address] 04/16/2024 10:00 EST Telemedicine [facility] Palliative [facility] Services [address] [place], [place] 861191 Chichi Woods MD [address] [facility], [address] [phone] 04/24/2024 9:00 EST Appointment [facility] Radiology CT Outpatient - [address] [address] 04/24/2024 11:00 EST Appointment [facility] Breast Imaging - [address] 020821 04/27/2024 12:00 EST Appointment [facility] Hematology & Oncology - [address] 367221 05/02/2024 15:00 EST Telemedicine [facility] Hematology & Oncology - [address] [phone] Alisson Carreon MD [address] [place] [address], Level [address] [place] [phone] 05/04/2024 10:15 EST Ancillary Procedure [facility] Cardiology [place] [address] 05/04/2024 11:30 EST Appointment [facility] Hematology & Oncology - [address] [address] 05/04/2024 12:00 EST Appointment [facility] Hematology & Oncology - [address] 067861 06/12/2024 13:00 EST Appointment [facility] Radiology CT - [address] [address] documented as of this encounter Visit Diagnoses Not on filedocumented in this encounter Care Teams International Account Executive Relationship Specialty Start Date End Date Linda Blancas MD [facility] [address] [place] [address] PCP - General 01/06/11 Adolfo Carreno MD [address] [place] [address] [phone] General Surgery 04/26/19 Augustina Colin MD PhD [address] [place] [phone] Medical Oncology 04/26/19 documented as of this encounter
--- OUTSIDE RECORDS SUMMARY | 2024-03-20 14:58 | XMS_ITS | Encounter Summary ---
Author Organization [facility] Address [address] [place] [address] Care Team Providers Care Applications Support Specialist Name Role Phone Linda Blancas MD Primary Care Provider [phone] Adolfo Carreno MD Unavailable [phone] Augustina Colin MD PhD Unavailable Unavailable Encounter Details Date Type Department Care Team (Late st Contact Info) Description 06/04/2020 Specialty Pharmacy [facility] Ambulatory Pharmacy - [address] 190131 Allen Day, [facility] Social History Tobacco Use Types Packs/Day Years [...] EDT Appointment [facility] Interventional Radiology Unit [address] [place] [address] [phone] 04/02/2024 15:15 EDT Office Visit [facility] Surgical Oncology - [address] [phone] Adolfo Carreno MD [address] [place] [address] [phone] 04/05/2024 9:30 EDT Telemedicine [facility] - [facility] Palliative Care Services [address] [place] [address] [phone] Chichi Woods MD [address] [place] [address] [phone] 04/11/2024 15:00 EDT Telemedicine [facility] Hematology & Oncology [address] 710211 Alisson Carreon MD [address] [place] [address] [phone] 04/13/2024 13:30 EDT Appointment [facility] Hematology Oncology [address] [id number] 04/13/2024 14:00 EDT Appointment [facility] Hematology & Oncology [address] [phone] 04/16/2024 10:00 EST Telemedicine [facility] - [facility] Palliative Care Services [address] [place] [address] [phone] Chichi Woods MD [address] [place] [address], [address] [place] [phone] 04/24/2024 9:00 EST Appointment [facility] Radiology CT Outpatient - [address] [id number] 04/24/2024 11:00 EST Appointment [facility] Breast Imaging - [facility] [place] [address] [place], [place] 186501 04/27/2024 12:00 EST Appointment [facility] Hematology & Oncology - [address] [phone] 05/02/2024 15:00 EST Telemedicine [facility] Hematology & Oncology - [address] [phone] Alisson Carreon MD [address] [place] [address], Level [address] [place] [phone] 05/04/2024 10:15 EST Ancillary Procedure [facility] Cardiology - [place] [address] 05/04/2024 11:30 EST Appointment [facility] Hematology & Oncology - [address] [phone] 05/04/2024 12:00 EST Appointment [facility] Hematology & Oncology [address] [phone] 06/12/2024 13:00 EST Appointment [facility] Radiology CT - [address] [phone] documented as of this encounter Visit Diagnoses Not on filedocumented in this encounter Additional Health Concerns Infection Onset Date Last Indicated Resolved Time R/O COVID-19 12/12/2023 12/12/2023 12/12/2023 15:3 5 EDT R/O COVID-19 01/08/2024 01/08/2024 01/08/2024 18:2 6 EDT R/O COVID-19 01/16/2024 01/16/2024 01/16/2024 17:5 0 EDT documented as of this encounter Care Teams Applications Support Specialist Relationship Specialty Start Date End Date Linda Blancas MD [facility] [address] [place] [address] PCP - General 01/06/11 Adolfo Carreno MD [address] [place] [address] 2 [place] [phone] General Surgery 04/26/19 Augustina Colin MD PhD [address] [place] [address] 2 [place] [phone] Medical Oncology 04/26/19 documented as of this encounter
--- OUTSIDE RECORDS SUMMARY | 2024-03-20 14:58 | XMS_ITS | Encounter Summary ---
Author Organization [facility] Address [address] [place] [address] Care Team Providers Care Newswriter Name Role Phone Linda Blancas MD Primary Care Provider [phone] Adolfo Carreno MD Unavailable [phone] Augustina Colin MD PhD Unavailable Unavailable Encounter Details Date Type Department Care Team (Late st Contact Info) Description 06/17/2020 Specialty Pharmacy [facility] Amb[facility] - [facility] [address] [place], [place] [id number] Allen Day, [facility] Social History Tobacco Use Types Packs/Day Years [...] [facility] [address] [place] [address] [phone] 04/02/2024 15:15 EDT Office Visit [facility] Surgical Oncology - [address] [phone] Adolfo Carreno MD [address] [place] [address] [phone] 04/05/2024 9:30 EDT Telemedicine [facility] - [facility] Palliative Care Services [address] [place] [address] [phone] Chichi Woods MD [address] [place] [address] [phone] 04/11/2024 15:00 EDT Telemedicine [facility] Hematology & Oncology [address] 223081 Alisson Carreon MD [address] [place] [address] [phone] 04/13/2024 13:30 EDT Appointment [facility] Hematology & Oncology [address] [phone] 04/13/2024 14:00 EDT Appointment [facility] Hematology & Oncology [address] [phone] 04/16/2024 10:00 EST Telemedicine [facility] - [facility] Palliative Care Services [address] [place] [address] 030231 Chichi Woods MD [address] [place] [address], [place] [address] [place] [phone] 04/24/2024 9:00 EST [facility]ointment [facility] Rad[facility] Outpatient - [address] [id number] 04/24/2024 11:00 EST Appointment [facility] Breast Imaging - [facility] [place] 1 [place], [place] 014851 04/27/2024 12:00 EST Appointment [facility] Hematology & Oncology - [address] [id number] 05/02/2024 15:00 EST Telemedicine [facility] Hematology & Oncology - [address] 768401 Alisson Carreon MD [address] [place] [address], Level [address] [place] [phone] 05/04/2024 10:15 EST Ancillary Procedure [facility] Cardiology - [address] [place], [place] [phone] 05/04/2024 11:30 EST Appointment [facility] Hematology & Oncology - [address] 411001 05/04/2024 12:00 EST Appointment [facility] Hematology & Oncology [address] [phone] 06/12/2024 13:00 EST Appointment [facility] Radiology CT - [address] [phone] documented as of this encounter Visit Diagnoses Not on filedocumented in this encounter Care Teams Newswriter Relationship Specialty Start Date End Date Linda Blancas MD [facility] [address] [place] [address] PCP - General 01/06/11 Adolfo Carreno MD [address] [place] [address], [facility] 2 [place] [phone] General Surgery 04/26/19 Augustina Colin MD PhD [address] [place] [address], [address] [phone] Medical Oncology 04/26/19 documented as of this encounter
--- OUTSIDE RECORDS SUMMARY | 2024-03-20 14:58 | XMS_ITS | Encounter Summary ---
Author Organization [facility] Address [address] [place] [address] Care Team Providers Care Molding Fitter Name Role Phone Linda Blancas MD Primary Care Provider [phone] Adolfo Carreno MD Unavailable [phone] Augustina Colin MD PhD Unavailable Unavailable Reason for Visit * Reason Comments Injections Encounter Details Date Type Department Care Team (Latest Contact Info) Description 05/26/2020 9:32 EST - 05/26/2020 23:59 EST Hospital Encounter [facility] Hematology & Oncology - [place] [address] [place] [address] Metastatic breast cancer (HCC-CMS) (Primary Dx); Malignant neoplasm of right [...] Sign Reading Time Taken Comments Blood Pressure 146/65 05/26/2020 1032 EST Pulse 88 05/26/2020 1032 EST Temperature 36.7 ??C (98 ??F) 05/26/2020 1032 EST Respiratory Rate 16 05/26/2020 1032 EST Oxygen Saturation 100% 05/26/2020 1032 EST Inhaled Oxygen Concentration - - Weight [...] mouth every 12 hours. 60 Tab 2 02/29/2020 06/16/2020 acetaminophen (TYLENOL) 325 mg tablet Take 2 [...] documented in this encounter Progress Notes * Deana Carrasquillo, RN - 05/26/2020 1000 EST Out-patient Injection Note Sendy presents to clinic today for cycle #4, day # 1 of Faslodex treatment plan. Sendy last received treatment on 04/30 during downtime at [facility]. She reports feeling well and offers no complaints. Zometa is due in June per Dr. Colin's note on 01/02/20. Reviewed lab results with Sendy. Chemistry: Lab Results Component Value Date NA 142 05/26/2020 K 4.1 05/26/2020 BUN 17 05/26/2020 CREATININE 0.87 05/26/2020 CALCIUM 9.2 05/26/2020 MG 2.2 05/26/2020 There were no parameters for today's treatment. Patient received Faslodex 500mg IM to bilateral gluteal muscles (see MAR). Bandaid applied to each injection site. Sendy tolerated injections well today. Sites were free of bleeding, bruising, and erythema. Patient education: Patient educated on all medications administered today. Patient expressed understanding of education provided and no barriers identified Sendy was encouraged to call clinic with any symptoms, questions, or concerns. I was supervised by Dr. Cowart who was present and immediately available in the office suite. Deana Carrasquillo, RN documented in this encounter Miscellaneous Notes * Addendum Note - Mirian Houston - 05/26/2020 1000 ESTEncounter addended by: Mirian Houston on: 06/16/2020 11:20 Actions taken: Charge Capture section accepted documented in this encounter Plan of Treatment Upcoming Encounters Date Type Department Care Team (Late st Contact Info) Description 04/02/2024 10:30 EDT Appointment [facility] Interventional Radiology Unit [address] [place] [address] [phone] 04/02/2024 15:15 EDT Office Visit [facility] Surgical Oncology - [address] [phone] Adolfo Carreno MD [address] [place] [address] [phone] 04/05/2024 9:30 EDT Telemedicine [facility] Palliative Care Services [address] [place] [address] [phone] Chichi Woods MD [address] [place] [address], [address] [phone] 04/11/2024 15:00 EDT Telemedicine [facility] Hematology & Oncology - [address] [phone] Alisson Carreon MD [address] [place] [address] 2 [place] [phone] 04/13/2024 13:30 EDT Appointment [facility] Hematology & Oncology - [address] [phone] 04/13/2024 14:00 EDT Appointment [facility] Oncology [address] [address] 04/16/2024 10:00 EST Telemedicine [facility] - [facility] Palliative Care Services [address] [place] [address] [phone] Chichi Woods MD [address] [place] [address] [phone] 04/24/2024 9:00 EST Appointment [facility] Radiology CT Outpatient - [address] [id number] 04/24/2024 11:00 EST Appointment [facility] Breast Imaging - [facility] S [address] [phone] 04/27/2024 12:00 EST Appointment [facility] Hematology & Oncology - [address] [phone] 05/02/2024 15:00 EST Telemedicine [facility] Hematology & Oncology [address] 460351 Alisson Carreon MD [address] [place] [address], [facility], Level [address] [place] [phone] 05/04/2024 10:15 EST Ancillary Procedure [facility] Cardiology [place] [place] [address] 05/04/2024 11:30 EST Appointment [facility] Hematology & Oncology - [address] [phone] 05/04/2024 12:00 EST Appointment [facility] Hematology & Oncology - [address] [address] 06/12/2024 13:00 [facility] - [address] [address] documented as of this encounter Visit Diagnoses Diagnosis Metastatic breast cancer- Primary Malignant neoplasm of right female breast, unspecified estrogen receptor status, unspecified site of breast (HCC-CMS) documented in this encounter Administered Medications Inactive Administered Medications - up to 3 most recent administrations Medication Order MAR Action Action Date Dose Rate Site fulvestrant (FASLODEX) injection 500 mg 500 mg, intramuscular, NOW X1, 1 dose, On 05/26/20 at 1045, Routine Given 05/26/2020 10:40 EST 500 mg documented in this encounter Orders Appointment Requests Count Last Ordered Date Fi rst Ordered Date ONCBCN INJECTION APPOINTMENT REQUEST 1 05/13 documented in this encounter Care Teams Molding Fitter Relationship Specialty Start Date End Date Linda Blancas MD [facility] [address] [place] [address] PCP - General 01/06/11 Adolfo Carreno MD [address] [place] [address] [phone] General Surgery 04/26/19 Augustina Colin MD PhD [address] [place] [phone] Medical Oncology 04/26/19 documented as of this encounter
--- OUTSIDE RECORDS SUMMARY | 2024-03-20 14:58 | XMS_ITS | Encounter Summary ---
Author Organization [facility] Address [address] [place] [address] Care Team Providers Care Bander Hand Name Role Phone Linda Blancas MD Primary Care Provider [phone] Adolfo Carreno MD Unavailable [phone] Augustina Colin MD PhD Unavailable Unavailable Encounter Details Date Type Department Care Team (Late st Contact Info) Description 05/15/2020 Specialty Pharmacy [facility] Ambulatory Pharmacy - [address] [id number] Allen Day, [facility] Social History Tobacco Use Types [facility] [address] [place] [address] 184241 04/02/2024 15:15 EDT Office Visit [facility] Surgical Oncology - [address] 148831 Adolfo Carreno MD [address] [place] [address] [phone] 04/05/2024 9:30 EDT Telemedicine [facility] - [facility] Palliative Care Services [address] [place] [address] 134591 Chichi Woods MD [address] [place] [address] [phone] 04/11/2024 15:00 EDT Telemedicine [facility] Hematology & Oncology [address] 503111 Alisson Carreon MD [address] [place] [address] [phone] 04/13/2024 13:30 EDT Appointment [facility] Hematology Oncology [address] 786751 04/13/2024 14:00 EDT Appointment [facility] Hematology & Oncology [address] 632891 04/16/2024 10:00 EST Telemedicine [facility] - [facility] Palliative Care Services [address] [place] [address] 569651 Chichi Woods MD [address] [place] [address], [place] [address] [place] [phone] 04/24/2024 9:00 EST Appointment [facility] Radiology CT Outpatient - [address] [phone] 04/24/2024 11:00 EST Appointment [facility] Breast Imaging - [facility] S [place] [address] [place], [place] 109921 04/27/2024 12:00 EST Appointment [facility] Hematology & Oncology - [address] [phone] 05/02/2024 15:00 EST Telemedicine [facility] Hematology & Oncology - [address] 455641 Alisson Carreon MD [address] [place] [address], Level [address] [place] [phone] 05/04/2024 10:15 EST Ancillary Procedure [facility] Cardiology - [address] [place], [place] [phone] 05/04/2024 11:30 EST Appointment [facility] Hematology & Oncology - [address] 058361 05/04/2024 12:00 EST Appointment [facility] Hematology & Oncology [address] [phone] 06/12/2024 13:00 EST Appointment [facility] Radiology CT - [address] [phone] documented as of this encounter Visit Diagnoses Not on filedocumented in this encounter Care Teams Bander Hand Relationship Specialty Start Date End Date Linda Blancas MD [facility] [address] [place] [address] PCP - General 01/06/11 Adolfo Carreno MD [address] [place] [address], [facility] 2 [place] [phone] General Surgery 04/26/19 Augustina Colin MD PhD [address] [place] [address], [facility] [address] [place] [phone] Medical Oncology 04/26/19 documented as of this encounter
--- OUTSIDE RECORDS SUMMARY | 2024-03-20 14:58 | XMS_ITS | Encounter Summary ---
Author Organization [facility] Address [address] [place] [address] Care Team Providers Care Hydraulic Miner Name Role Phone Linda Blancas MD Primary Care Provider [phone] Adolfo Carreno MD Unavailable [phone] Augustina Colin MD PhD Unavailable Unavailable Encounter Details Date Type Department Care Team (Late st Contact Info) Description 06/09/2020 Orders Only [facility] Hematology & Oncology - [facility] [address] [place] [address] Ulysses Hart, [place] Social History Tobacco Use Types Packs/Day [...] tabs daily for maintenance. 30 Tab 1 06/09/2020 06/12/2020 documented in this encounter Plan of Treatment Upcoming Encounters Date Type Department Care Team (Late st Contact Info) Description 04/02/2024 10:30 EDT Appointment [facility] Interventional Radiology Unit [address] [place] [address] [phone] 04/02/2024 15:15 EDT Office Visit [facility] Surgical Oncology - [address] [phone] Adolfo Carreno MD [address] [place] [address] [phone] 04/05/2024 9:30 EDT Telemedicine [facility] - [facility] Palliative Care Services [address] [place] [address] [phone] Chichi Woods MD [address] [place] [address], [address] [phone] 04/11/2024 15:00 EDT Telemedicine [facility] Hematology & Oncology - [address] 020741 Alisson Carreon MD [address] [place] [address] 2 [place] [phone] 04/13/2024 13:30 EDT Appointment [facility] Hematology & Oncology - [address] [phone] 04/13/2024 14:00 EDT Appointment [facility] Hematology & Oncology - [address] [address] 04/16/2024 10:00 EST Telemedicine [facility] - [facility] Palliative Care Services [address] [place] [address] [phone] Chichi Woods MD [address] [place] [address], [address] [phone] 04/24/2024 9:00 EST Appointment [facility] Radiology CT Outpatient - [address] [phone] 04/24/2024 11:00 EST Appointment [facility] Breast Imaging - [facility] S [address] 263521 04/27/2024 12:00 EST Appointment [facility] Hematology & Oncology [address] [phone] 05/02/2024 15:00 EST Telemedicine [facility] Hematology & Oncology - [address] [address] Alisson Carreon MD [address] [place] [address], Level [address] [place] [phone] 05/04/2024 10:15 EST Ancillary Procedure [facility] Cardiology - [address] [place], [place] [phone] 05/04/2024 11:30 EST Appointment [facility] Hematology & Oncology - [address] [address] 05/04/2024 12:00 EST Appointment [facility] Center Hematology & Oncology - [address] [address] 06/12/2024 13:00 EST [facility]ment [facility] Rad[facility] - [address] [address] documented as of this encounter Visit Diagnoses Not on filedocumented in this encounter Discontinued Medications Medication Sig Discontinue Reason Start Date End Da te diphenoxylate-atropine (LOMOTIL) 2.5-0.025 mg per tablet Take 2 tabs every 6 hours until control achieved, then take 2 tabs daily for maintenance. Reorder 05/30/2020 06/09/2020 documented as of this encounter Care Teams Hydraulic Miner Relationship Specialty Start Date End Date Linda Blancas MD [address] [place] [address] 30 [place] [address] PCP - General 01/06/11 Adolfo Carreno MD [address] [place] [address], [facility] 2 [place] [phone] General Surgery 04/26/19 Augustina Colin MD PhD [address] [place] [address] 2 [place] [phone] Medical Oncology 04/26/19 documented as of this encounter
--- OUTSIDE RECORDS SUMMARY | 2024-03-20 14:58 | XMS_ITS | Encounter Summary ---
Author Organization [facility] Address [address] [place] [address] Care Team Providers Care Attendance Officer Name Role Phone Linda Blancas MD Primary Care Provider [phone] Adolfo Carreno MD Unavailable [phone] Augustina Colin MD PhD Unavailable Unavailable Reason for Visit * Reason Onset Date Comments Patient Outreach 06/19/2020 COVID-19 06/19/2020 Encounter Details Date Type Department Care Team (Late st Contact Info) Description 06/19/2020 Telephone [facility] Hematology & Oncology - [facility] [address] [place] [address] Augustina Colin MD PhD Patient Outreach; COVID-19 Social History Tobacco Use Types Packs/Day [...] for maintenance. 30 Tab 1 06/19/2020 09/08/2020 documented in this encounter Miscellaneous Notes * Telephone Encounter - Melyssa Alcocer RN - 06/19/2020 1145 EST Returned call to patient. She states she is feeling -15 on a 0-10 point scale. Reports chills, bodyache, fatigue, diarrhea, nausea, and sore throat. Discussed with patient our plans for COVID + patients to reenter clinic. We require that she isolate for 10 days and be symptom free for 48 hours prior to returning to clinic. Pt verbalized understanding. I will update her treatment plan to reflect this. * Telephone Encounter - Zulma Delong - 06/19/2020 1009 EST Patient calling because she went out of state to take care of her brother who just had Surgery and she now has COVID. Patient would like to follow up with a Nurse she had to cancel 4 appointments andshe thinks this will interfere with her Medication Schedule. Please call documented in this encounter Plan of Treatment Upcoming Encounters Date Type Department Care Team (Late st Contact Info) Description 04/02/2024 10:30 EDT Appointment [facility] Interventional Radiology Unit [address] [place] [address] 04/02/2024 15:15 EDT Office Visit [facility] Surgical Oncology - [address] [phone] Adolfo Carreno MD [address] [place] [address] [phone] 04/05/2024 9:30 EDT Telemedicine [facility] [address] [place] [address] 011151 Chichi Woods MD [address] [place] [address] [phone] 04/11/2024 15:00 EDT Telemedicine [facility] Hematology & Oncology - [address] 165151 Alisson Carreon MD [address] [place] [address] [phone] 04/13/2024 13:30 EDT Appointment [facility] Hematology & Oncology - [address] 119221 04/13/2024 14:00 EDT Appointment [facility] Hematology & Oncology - [address] [address] 04/16/2024 10:00 EST Telemedicine [facility] Palliative Care [facility] [address] [place] [address] [phone] Chichi Woods MD [address] [place] [address] [phone] 04/24/2024 9:00 EST Appointment [facility] Radiology CT Outpatient - [address] 844341 04/24/2024 11:00 EST Appointment [facility] Breast Imaging - [facility] [address] [place] [address] [place] [address] 04/27/2024 12:00 EST Appointment [facility] Hematology & Oncology - [address] [address] 05/02/2024 15:00 EST Telemedicine [facility] Hematology & Oncology - [address] [address] Alisson Carreon MD [address] [place] [address], Level 2 [place] [phone] 05/04/2024 10:15 EST Ancillary Procedure [facility] Cardiology - [address] [place] [address] 05/04/2024 11:30 EST Appointment [facility] Hematology & Oncology - [address] [phone] 05/04/2024 12:00 EST Appointment [facility] Hematology & Oncology - [address] 317091 06/12/2024 13:00 EST Appointment [facility] Radiology CT - [address] 156911 documented as of this encounter Visit Diagnoses Not on filedocumented in this encounter Discontinued Medications Medication Sig Discontinue Reason Start Date End Da te diphenoxylate-atropine (LOMOTIL) 2.5-0.025 mg per tablet Take 2 tabs every 6 hours until control achieved, then take 2 tabs daily for maintenance. Reorder 06/12/2020 06/19/2020 documented as of this encounter Additional Health Concerns Infection Onset Date Last Indicated Resolved Time R/O COVID-19 12/12/2023 12/12/2023 12/12/2023 15:3 5 EDT R/O COVID-19 01/08/2024 01/08/2024 01/08/2024 18:2 6 EDT R/O COVID-19 01/16/2024 01/16/2024 01/16/2024 17:5 0 EDT documented as of this encounter Care Teams Attendance Officer Relationship Specialty Start Date End Date Linda Blancas MD [facility] [address] [place] [address] PCP - General 01/06/11 Adolfo Carreno MD [address] [place] [address] [phone] General Surgery 04/26/19 Augustina Colin MD PhD [address] [place] [phone] Medical Oncology 04/26/19 documented as of this encounter
--- OUTSIDE RECORDS SUMMARY | 2024-03-20 14:58 | XMS_ITS | Encounter Summary ---
Author Organization [facility] Address [address] [place] [address] Care Team Providers Care Dairy Inspector Name Role Phone Linda Blancas MD Primary Care Provider [phone] Adolfo Carreno MD Unavailable [phone] Augustina Colin MD PhD Unavailable Unavailable Reason for Visit * Reason Onset Date Comments Other 06/25/2020 Encounter Details Date Type Department Care Team (Late st Contact Info) Description 06/25/2020 Telephone [facility] Cancer Center Hematology & Oncology - [place] [address], [place] [phone] Augustina Colin, MD PhD Other Social History Tobacco Use Types Packs/Day [...] encounter Miscellaneous Notes * Telephone Encounter - Ginna Marshall RN - 06/25/2020 1221 EST Spoke with Sendy, she is now hospitalized with COVID wanted Dr Colin to be aware that the hospitalmay call to get her OK regarding her transfer to a [facility] field unit. She is requesting that Dr Colin refuse this request and that she be allowed to stay where she is at. She also wanted to let Dr Colin know that they are holding her abemaciclib while she is being treated for COVID. * Telephone Encounter - Denisa Starr - 06/25/2020 0670 EST PAS Message: Sendy Colin may have already receive a message from the phycician at [facility] - regarding to release me from the Hospital to [facility] in [facility]. Please say No - Been extremely sick for the last 6 nights and last night was the best nigh I had. And I like more please. You may know that the 6 night were home alone. Thank you. If you wanted to talk please call me at [phone] documented in this encounter Plan of Treatment Upcoming Encounters Date Type Department Care Team (Late st Contact Info) Description 04/02/2024 10:30 EDT Appointment [facility] Interventional Radiology Unit [address] [place] [address] [phone] 04/02/2024 15:15 EDT Office Visit [facility] Surgical Oncology - [place] [address] [place] [address] [phone] Adolfo Carreno MD [address] [place] [address] 2 [place] [phone] 04/05/2024 9:30 EDT Telemedicine [facility] Palliative Care Services [address] [place] [address] 959861 Chichi Woods MD [address] [place] [address] [phone] 04/11/2024 15:00 EDT Telemedicine [facility] Hematology & Oncology - [address] [phone] Alisson Carreon MD [address] [place] [address] 2 [place] [phone] 04/13/2024 13:30 EDT Appointment [facility] Hematology & Oncology - [address] [phone] 04/13/2024 14:00 EDT Appointment [facility] Hematology & Oncology - [address] [phone] 04/16/2024 10:00 EST Telemedicine [facility] Palliative Care Services [address] [place] [address] 328351 Chichi Woods MD [address] [place] [address] [phone] 04/24/2024 9:[address] [facility] Radiology CT Outpatient - [address] [id number] 04/24/2024 11:00 EST Appointment [facility] Breast Imaging - [address] [address] 04/27/2024 12:00 EST Appointment [facility] Hematology & Oncology [address] [phone] 05/02/2024 15:00 EST Telemedicine [facility] Hematology & Oncology [address] 166981 Alisson Carreon MD [address] [place] [address] [phone] 05/04/2024 10:15 EST Ancillary Procedure [facility] Cardiology - [address] [place] [address] 05/04/2024 11:30 EST Appointment [facility] Hematology & Oncology [address] 216491 05/04/2024 12:00 EST Appointment [facility] Hematology & Oncology [address] [phone] 06/12/2024 13:[address] [facility] Radiology CT - [address] [phone] documented as of this encounter Visit Diagnoses Not on filedocumented in this encounter Care Teams Dairy Inspector Relationship Specialty Start Date End Date Linda Blancas MD [facility] [address] [place], [place] 320492 PCP - General 01/06/11 Adolfo Carreno MD [address] [place] [address] [phone] General Surgery 04/26/19 Augustina Colin MD PhD [address] [place] [phone] Medical Oncology 04/26/19 documented as of this encounter
--- OUTSIDE RECORDS SUMMARY | 2024-03-20 14:58 | XMS_ITS | Encounter Summary ---
Author Organization [facility] Address [address] [place] [address] Care Team Providers Care Supervisor Packing Room Name Role Phone Linda Blancas MD Primary Care Provider [phone] Adolfo Carreno MD Unavailable [phone] Augustina Colin MD PhD Unavailable Unavailable Reason for Visit * Reason Onset Date Comments COVID-19 07/09/2020 Encounter Details Date Type Department Care Team (Late st Contact Info) Description 07/09/2020 Telephone [facility] - [place] [address] [place] [address] Tylor Boss MD [address] [place] [phone] COVID-19 Social History Tobacco Use Types [...] encounter Miscellaneous Notes * Telephone Encounter - Susan Jonas - 07/09/2020 1533 EST Patient rescheduled procedure because she was sick with covid. documented in this encounter Plan of Treatment Upcoming Encounters Date Type Department Care Team (Late st Contact Info) Description 04/02/2024 10:30 EDT Appointment [facility] Interventional Radiology Unit [address] [place] [address] [phone] 04/02/2024 15:15 EDT Office Visit [facility] Surgical Oncology - [facility] [address], [place] [phone] Adolfo Carreno MD 111 [facility], Level 2 [place] [phone] 04/05/2024 9:30 EDT Telemedicine [facility] - [facility] Palliative Care Services [address], [place] [phone] Chichi Woods MD 111 [facility] [place] [address] [place] [phone] 04/11/2024 15:00 EDT Telemedicine [facility] Hematology & Oncology - [address] [phone] Alisson Carreon MD [address] [place] [address] 2 [place] [phone] 04/13/2024 13:30 EDT Appointment [facility] Hematology & Oncology - [address] [phone] 04/13/2024 14:00 EDT Appointment [facility] Hematology & Oncology - [address] [address] 04/16/2024 10:00 EST Telemedicine [facility] - [facility] Palliative Care Services [address] [place] [address] Chichi Woods MD [address] [place] [address] [phone] 04/24/2024 9:00 EST Appointment [place] Radiology CT Outpatient - [address] 967281 04/24/2024 11:00 EST Appointment [facility] Breast Imaging - [address] [phone] 04/27/2024 12:00 EST Appointment [facility] Hematology & Oncology - [address] 867471 05/02/2024 15:00 EST Telemedicine [facility] Hematology & Oncology - [address] 746841 Alisson Carreon MD [address] [place] [address], [facility] 2 [place] [phone] 05/04/2024 10:15 EST Ancillary Procedure [facility] Cardiology - [address] [place] [address] 05/04/2024 11:30 EST Appointment [facility] Hematology & Oncology [address] [address] 05/04/2024 12:00 EST Appointment [facility] Hematology & Oncology [address] [address] 06/12/2024 13:00 EST Appointment [place] Radiology CT - [address] [phone] documented as of this encounter Visit Diagnoses Not on filedocumented in this encounter Care Teams Supervisor Packing Room Relationship Specialty Start Date End Date Linda Blancas MD [facility] [address] [place] [address] PCP - General 01/06/11 Adolfo Carreno MD [address] [place] [address] [phone] General Surgery 04/26/19 Augustina Colin MD PhD [address] [place] [phone] Medical Oncology 04/26/19 documented as of this encounter
--- OUTSIDE RECORDS SUMMARY | 2024-03-20 14:58 | XMS_ITS | Encounter Summary ---
Author Organization [facility] Address [address] [place] [address] Care Team Providers Care Director Alumni Relations Name Role Phone Linda Blancas MD Primary Care Provider [phone] Adolfo Carreno MD Unavailable [phone] Augustina Cloin MD PhD Unavailable Unavailable Reason for Visit * Reason Onset Date Comments Appointment Related 07/22/2020 Encounter Details Date Type Department Care Team (Late st Contact Info) Description 07/22/2020 Telephone [facility] Surgical Oncology - [address] [address] Adolfo Carreno MD [address] [place] [address], [address] [place] [phone] Appointment Related Social History Tobacco [...] encounter Miscellaneous Notes * Telephone Encounter - Lety Keita - 07/22/2020 1234 EST Gave pt a call to reschedule her Dr. Carreno appt (pts. Preference currently quarantining) Rescheduled this to: 08/11/2020 at 10:15am - pt is aware Lety Keita 07/22/2020 12:37 * Telephone Encounter - Nathaniel Molina - 07/22/2020 1223 EST Please call pt to reschedule apt 07/28 for a later date (reason: quarantine). Specifically asks for 08/06. documented in this encounter Plan of Treatment Upcoming Encounters Date Type Department Care Team (Late st Contact Info) Description 04/02/2024 10:30 EDT Appointment [facility] Interventional Radiology Unit [address] [place] [address] [phone] 04/02/2024 15:15 EDT Office Visit [facility] Surgical Oncology - [address] 864501 Adolfo Carreno MD 111 [facility], [address] [place] [phone] 04/05/2024 9:30 EDT Telemedicine [facility] Palliative Care Services [address] [place] [address] [phone] Chichi Woods MD [address] [place] [address] [phone] 04/11/2024 15:00 EDT Telemedicine [facility] Hematology & Oncology - [address] 316501 Alisson Carreon MD [address] [place] [address], [address] [place] [phone] 04/13/2024 13:30 EDT Appointment [facility] Hematology & Oncology [address] [phone] 04/13/2024 14:00 EDT Appointment [facility] Hematology & Oncology [address] [phone] 04/16/2024 10:00 EST Telemedicine [facility] Palliative Care Services [address] [place] [address] 864261 Chichi Woods MD [address] [place] [address] [phone] 04/24/2024 9:00 EST Appointment [facility] Radiology CT Outpatient - [address] [phone] 04/24/2024 11:00 EST Appointment [facility] Breast Imaging - [address] 576931 04/27/2024 12:00 EST Appointment [facility] Hematology & Oncology - [address] 615221 05/02/2024 15:00 EST Telemedicine [facility] Hematology & Oncology - [address] 800991 Alisson Carreon MD [address] [place] [address] [phone] 05/04/2024 10:15 EST Ancillary Procedure [facility] Cardiology - [address] [place] [address] 05/04/2024 11:30 EST Appointment [facility] Hematology & Oncology [address] 049691 05/04/2024 12:00 EST Appointment [facility] Hematology & Oncology [address] 574921 06/12/2024 13:00 EST Appointment [facility] Radiology CT - [address] [phone] documented as of this encounter Visit Diagnoses Not on filedocumented in this encounter Care Teams Director Alumni Relations Relationship Specialty Start Date End Date Linda Blancas MD [address] [place] [address] 30 [place], [place] 743342 PCP - General 01/06/11 Adolfo Carreno MD [address] [place] [address] [phone] General Surgery 04/26/19 Augustina Colin MD PhD [address] [place] [phone] Medical Oncology 04/26/19 documented as of this encounter
--- OUTSIDE RECORDS SUMMARY | 2024-03-20 14:58 | XMS_ITS | Encounter Summary ---
Author Organization [facility] Address [address] [place] [address] Care Team Providers Care Certified Personal Trainer Name Role Phone Linda Blancas MD Primary Care Provider [phone] Adolfo Carreno MD Unavailable Augustina Colin MD PhD Unavailable Unavailable Encounter Details Date Type Department Care Team (Latest Contact Info) Description 07/25/2020 Travel Social History Tobacco Use Types Packs/Day [...] [facility] Interventional Radiology Unit [address] [place] [address] [phone] 04/02/2024 15:15 EDT Office Visit [facility] Surgical Oncology - [address] [phone] Adolfo Carreno MD [address] [place] [address] [phone] 04/05/2024 9:30 EDT Telemedicine [facility] - [facility] Palliative Care Services [address] [place] [address] [phone] Chichi Woods MD [address] [place] [address] [phone] 04/11/2024 15:00 EDT Telemedicine [facility] Hematology & Oncology [address] 014481 Alisson Carreon MD [address] [place] [address] [phone] 04/13/2024 13:30 EDT Appointment [facility] Hematology & Oncology [address] 144841 04/13/2024 14:00 EDT Appointment [facility] Hematology & Oncology [address] 649281 04/16/2024 10:00 EST Telemedicine [facility] - [facility] Palliative Care Services [address] [place], [place] 273601 Chichi Woods MD [address] [place] [address], [address] [phone] 04/24/2024 9:00 EST Appointment [facility] Radiology CT Outpatient - [address] 449271 04/24/2024 11:00 EST Appointment [facility] Breast Imaging - [facility] S [place] [address] [place], [place] 833321 04/27/2024 12:00 EST Appointment [facility] Hematology & Oncology - [address] 483191 05/02/2024 15:00 EST Telemedicine [facility] Hematology & Oncology - [address] 221251 Alisson Carreon MD [address] [place] [address], [facility], Level [address] [place] [phone] 05/04/2024 10:15 EST Ancillary Procedure [facility] Cardiology - [place] [address] 05/04/2024 11:30 EST Appointment [facility] Hematology & Oncology - [address] 953291 05/04/2024 12:00 EST Appointment [facility] Hematology & Oncology [address] [phone] 06/12/2024 13:00 EST Appointment [facility] Radiology CT - [address] [phone] documented as of this encounter Visit Diagnoses Not on filedocumented in this encounter Care Teams Certified Personal Trainer Relationship Specialty Start Date End Date Linda Blancas MD [facility] [address] [place] [address] PCP - General 01/06/11 Adolfo Carreno MD [address] [place] [address] 2 [place] [phone] General Surgery 04/26/19 Augustina Colin MD PhD [address] [place] [address], [facility] [address] [place] [phone] Medical Oncology 04/26/19 documented as of this encounter
--- OUTSIDE RECORDS SUMMARY | 2024-03-20 14:58 | XMS_ITS | Encounter Summary ---
Author Organization [facility] Address [address] [place] [address] Care Team Providers Care Slate Trimmer Name Role Phone Linda Blancas MD Primary Care Provider [phone] Adolfo Carreno MD Unavailable [phone] Augustina Colin MD PhD Unavailable Unavailable Encounter Details Date Type Department Care Team (Late st Contact Info) Description 05/23/2020 Orders Only [facility] Cancer Center Hematology & Oncology - [address] [address] Nadeen Blood, PA-C [address] [place] [address], [facility] 2 [place] [address] Social History Tobacco Use Types [...] Appointment [facility] Interventional Radiology Unit [address] [place] [phone] 04/02/2024 15:15 EDT Office Visit [facility] Surgical Oncology - [address] [phone] Adolfo Carreno MD [address] [place] [address] 2 [place] [phone] 04/05/2024 9:30 EDT Telemedicine [facility] - [facility] Palliative Care Services [address] [place] [address] [phone] Chichi Woods MD [address] [place] [phone] 04/11/2024 15:00 EDT Telemedicine [facility] Hematology & Oncology [address] [phone] Alisson Carreon MD [address] [place] [phone] 04/13/2024 13:30 EDT Appointment [facility] Hematology & Oncology [address] [phone] 04/13/2024 14:00 EDT Appointment [facility] Hematology & Oncology - [address] [address] 04/16/2024 10:00 EST Telemedicine [facility] - [facility] Palliative Care Services [address] [place] [address] Chichi Woods MD [address] [place] [address], [address] [phone] 04/24/2024 9:00 EST Appointment [facility] Radiology CT Outpatient - [address] [phone] 04/24/2024 11:00 EST Appointment [facility] Breast Imaging - [address] [address] 04/27/2024 12:00 EST Appointment [facility] Hematology & Oncology - [address] [address] 05/02/2024 15:00 EST Telemedicine [facility] Hematology & Oncology - [address] [phone] Alisson Carreon MD [address] [place] [address], [facility], Level 2 [place] [phone] 05/04/2024 10:15 EST Ancillary Procedure [facility] Cardiology - [place] [address] 05/04/2024 11:30 EST Appointment [facility] Hematology & Oncology - [address] [address] 05/04/2024 12:00 EST Appointment [facility] Hematology & Oncology - [address] [address] 06/12/2024 13:00 EST [facility]ointment [facility] Radiology [facility] - [address] [address] documented as of this encounter Visit Diagnoses Not on filedocumented in this encounter Care Teams Slate Trimmer Relationship Specialty Start Date End Date Linda Blancas MD [facility] [address] [place] [address] PCP - General 01/06/11 Adolfo Carreno MD [address] [place] [phone] General Surgery 04/26/19 Augustina Colin MD PhD [address] [place] [phone] Medical Oncology 04/26/19 documented as of this encounter
--- OUTSIDE RECORDS SUMMARY | 2024-03-20 14:59 | XMS_ITS | Encounter Summary ---
Author Organization [facility] Address [address] [place] [address] Care Team Providers Care Co Teacher Name Role Phone Linda Blancas MD Primary Care Provider [phone] Adolfo Carreno MD Unavailable [phone] Augustina Colin MD PhD Unavailable Unavailable Encounter Details Date Type Department Care Team (Latest Contact Info) Description 04/30/2020 9:00 EST - 04/30/2020 23:59 EST Hospital Encounter [facility] Cancer Center Hematology & Oncology - Main [place] [address] [place], [place] [address] Discharge Disposition: Home or Self Care Social [...] have Coronavirus / COVID-19? No / Unsure 04/04/2020 9:36 EDT documented as of this encounter Functional [...] Max: 12 mg 10 Tab 09/08/2020 05/26/2021 HYDROmorphone (DILAUDID) 2 mg tablet Take 1-2 Tabs by mouth every 4 hours as needed for Pain. Daily Max: 24 mg 8 Tab 05/30/2019 05/14/2020 ibuprofen (MOTRIN) 200 mg tablet Take 2 Tablets by mouth as needed. 12/07/2023 letrozole (FEMARA) 2.5 mg tabletIndications:Keagan price history of malignant neoplasm of breast,Breast lump TAKE 1 TABLET DAILY 90 Tab 3 01/10/2020 05/14/2020 mv-mn/C/glutamin/lysin/he rb124 (AIRBORNE, ASCORBATE SODIUM, ORAL) Take [...] [facility] Inter[facility] Rad[facility] Unit [address] [place] [address] [phone] 04/02/2024 15:15 EDT Office Visit [facility] Surgical Oncology - [facility] [address] [place], [place] [phone] Adolfo Carreno MD 111 [facility], Level 2 [place] [phone] 04/05/2024 9:30 EDT Telemedicine [facility] - [facility] Palliative Care Services [address] [place], [place] [phone] Chichi Woods MD 111 [facility], [address] [phone] 04/11/2024 15:00 EDT Telemedicine [facility] Hematology & Oncology - [address] [phone] Alisson Carreon MD [address] [place] [address], [facility] 2 [place] [phone] 04/13/2024 13:30 EDT Appointment [facility] Hematology & Oncology - [address] [phone] 04/13/2024 14:00 EDT Appointment [facility] Hematology & Oncology [address] [address] 04/16/2024 10:00 EST Telemedicine [facility] - [facility] Palliative Care Services [address] [place] [address] Chichi Woods MD [address] [place] [phone] 04/24/2024 9:00 EST Appointment [facility] Radiology CT Outpatient - [address] [phone] 04/24/2024 11:00 EST Appointment [facility] Breast Imaging - [facility] [address] [phone] 04/27/2024 12:00 EST Appointment [facility] Hematology & Oncology - [address] [phone] 05/02/2024 15:00 EST Telemedicine [facility] Hematology & Oncology [address] [phone] Alisson Carreon MD [address] [place] [address], [facility] 2 [place] [phone] 05/04/2024 10:15 EST Ancillary Procedure [facility] Cardiology - [address] [place] [address] 05/04/2024 11:30 EST Appointment [facility] Hematology & Oncology [address] [address] 05/04/2024 12:00 EST Appointment [facility] Hematology & Oncology [address] [phone] 06/12/2024 13:00 EST Appointment [facility] Radiology CT - [address] 799001 documented as of this encounter Visit Diagnoses Not on filedocumented in this encounter Care Teams Co Teacher Relationship Specialty Start Date End Date Linda Blancas MD [facility] [address] [place] [address] PCP - General 01/06/11 Adolfo Carreno MD [address] [place] [phone] General Surgery 04/26/19 Augustina Colin MD PhD [address] [place] [address] 2 [place] [phone] Medical Oncology 04/26/19 documented as of this encounter
--- OUTSIDE RECORDS SUMMARY | 2024-03-20 14:59 | XMS_ITS | Encounter Summary ---
Author Organization [facility] Address [address] [place] [address] Care Team Providers Care Wait Staff Name Role Phone Linda Blancas MD Primary Care Provider [phone] Adolfo Carreno MD Unavailable [phone] Augustina Colin MD PhD Unavailable Unavailable Reason for Visit * Laboratory Services (Routine) - Order Cancelled Specialty Diagnoses / Procedures Referred By Doug hearn Referred To Contact Diagnoses Metastatic breast cancer Procedures COMPLETE BLOOD COUNT AND DIFFERENTIAL Augustina Colin MD PhD Referral ID Status Reason Start Date Expiration Date V isits Requested Visits Authorized [id number] Order Cancelled 03/13/2019 1 1 Encounter Details Date Type Department Care Team (Latest Contact Info) Description 04/04/2020 14:30 EDT Phlebotomy Only [facility] Cancer Center Hematology & Oncology - Main [place] [address] [place] [address] Blood Doctor, [facility] Hem Onc Metastatic breast cancer [...] as of this encounter Progress Notes * Chaz Lala MA - 04/04/2020 1430 EDT Venipuncture performed per orders. Venipuncture established in LAC. Patient tolerated well. I was supervised by Dr. Lopez who was present and immediately available in the office suite. CHAZ LALA MA 04/04/2020 14:54 documented in this encounter Plan of Treatment Upcoming Encounters Date Type Department Care Team (Late st Contact Info) Description 04/02/2024 10:30 EDT Appointment [facility] Interventional Radiology Unit [address] [place], [place] [phone] 04/02/2024 15:15 EDT Office Visit [facility] Surgical Oncology - [facility] [address] [place], [place] [address] Adolfo Carreno MD 111 [facility], [facility] 2 [place] [phone] 04/05/2024 9:30 EDT Telemedicine [facility] - [facility] Palliative Care Services [address] [place], [place] 156841 Chichi Woods MD [address] [place] [phone] 04/11/2024 15:00 EDT Telemedicine [facility] Hematology & Oncology - [address] [phone] Alisson Carreon MD [address] [place] [address], Level [address] [place] [phone] 04/13/2024 13:30 EDT Appointment [facility] Hematology & Oncology [address] [phone] 04/13/2024 14:00 EDT Appointment [facility] Hematology & Oncology [address] 175621 04/16/2024 10:00 EST Telemedicine [facility] - [facility] Palliative Care Services [address] [place] [address] [phone] Chichi Woods MD [address] [place] [phone] 04/24/2024 9:00 EST Appointment [facility] Radiology CT Outpatient - [address] [phone] 04/24/2024 11:00 EST Appointment [facility] Breast Imaging - [address] [phone] 04/27/2024 12:00 EST Appointment [facility] Hematology & Oncology - [address] [phone] 05/02/2024 15:00 EST Telemedicine [facility] Hematology & Oncology - [address] [phone] Alisson Carreon MD 111 [facility], [facility], Level [address] [place] [phone] 05/04/2024 10:15 EST Ancillary Procedure [facility] Cardiology - [address] [place], [place] [phone] 05/04/2024 11:30 EST Appointment [facility] Hematology & Oncology - [address] [phone] 05/04/2024 12:00 EST Appointment [facility] Hematology & Oncology - [address] [phone] 06/12/2024 13:00 EST Appointment [facility] Radiology CT - [address] [phone] documented as of this encounter Procedures Procedure Name Priority Date/Time Associated Diagnosis Comments COMPREHENSIVE METABOLIC PANEL (ONCOLOGY USE ONLY-INC MG) STAT 04/04/2020 14:53 EDT Metastatic breast cancer (HCC-CMS) COMPLETE BLOOD COUNT AND DIFFERENTIAL Routine 04/04/2020 14:53 EDT Metastatic breast cancer (HCC-CMS) PHOSPHORUS STAT 04/04/2020 14:53 EDT Metastatic breast cancer (HCC-CMS) documented in this encounter Results * (ABNORMAL) COMPREHENSIVE METABOLIC PANEL (ONCOLOGY USE ONLY-INC MG) (04/04/2020 14:53 EDT) Sodium 143 136 - 145 mEq/L 04/04/2020 15:14 EDT [facility] Potassium 4.1 3.5 - 5.0 mEq/L 04/04/2020 15:14 T [facility] Chloride 104 96 - 110 mEq/L 04/04/2020 15:14 EDT [facility] CO2 Total 28 22 - 32 mEq/L 04/04/2020 15:14 T [facility] Glucose 111(H) 70 - 100 mg/dL 04/04/2020 15:14 [facility] BUN 30(H) 10 - 26 mg/dL 04/04/2020 15:14 [facility] Creatinine 1.04 0.52 - 1.04 mg/dL 04/04/2020 15:14 [facility] eGFR 59(L) >60 mL/min/1.7 3m2 04/04/2020 15:14 [facility] Comment:eGFR calculated gordo ureña CKD-EPI equation for non- Americans. Multiply eGFR by 1.16 for patients. Total Protein 7.1 6.3 - 8.2 g/dL 04/04/2020 15:14 [facility] Albumin 4.3 3.4 - 4.9 g/dL 04/04/2020 15:14 [facility] Alkaline Phosphatase 66 38 - 126 U/L 04/04/2020 15:14 [facility] AST 28 15 - 46 U/L 04/04/2020 15:14 [facility] ALT 24 <35 U/L 04/04/2020 15:14 [facility] Bilirubin, Total 0.8 <1.4 mg/dL 04/04/20 20 15:14 [facility] Calcium 10.1 8.5 - 10.5 mg/dL 04/04/2020 15:14 [facility] Calculated Calcium 9.9 8.5 - 10.5 mg/dL 04/04/2020 15:14 [facility] Magnesium 2.2 1.7 - 2.8 mg/dL 04/04/2020 15:14 [facility] Blood VENOUS BLOOD / Unknown Venipuncture / Unknown 04/04/2020 14:53 EDT 04/04/2020 14:58 EDT Vanessa Rollins NP CHEMISTRY & BLOOD GA S ORDERABLES [facility] [address] [place] [address] * PHOSPHORUS (04/04/2020 14:53 EDT) Phosphorus 4.2 2.5 - 4.5 mg/dL 04/04/2020 15:14 [facility] Blood VENOUS BLOOD / Unknown Venipuncture / Unknown 04/04/2020 14:53 EDT 04/04/2020 14:58 EDT Vanessa Rollins NP CHEMISTRY & BLOOD GA S ORDERABLES Performing Organization Address City/State/[facility] Co de Phone Number [facility] [address] [place] [address] * (ABNORMAL) COMPLETE BLOOD COUNT AND DIFFERENTIAL (04/04/2020 14:53 EDT) WBC 7.37 4.00 - 12.40 K/cmm 04/04/2020 15:13 [facility] RBC 4.17 3.86 - 5.04 M/cmm 04/04/2020 15:13 [facility] Hemoglobin 14.1 11.6 - 15.2 gm/dL 04/04/2020 15:13 [facility] HCT 40.3 34.9 - 44.4 % 04/04/2020 15:13 [facility] MCV 97 81 - 98 fl 04/04/2020 15:13 [facility] MCH 33.8(H) 26.7 - 33.3 pg 04/04/2020 15:13 [facility] MCHC 35.0 32.1 - 35.9 gm/dL 04/04/2020 15:13 [facility] RDW-CV 11.9 <14.7 % 04/04/2020 15:13 [facility] RDW-SD 41.7 <50.4 fl 04/04/2020 15:13 [facility] PLT 295 141 - 377 K/cmm 04/04/2020 15:13 [facility] MPV 9.9 9.5 - 12.7 fl 04/04/2020 15:13 [facility] % Neutrophils 52.6 % 04/04/2020 15:13 [facility] % Lymphocytes 37.0 % 04/04/2020 15:13 [facility] % Monocytes 6.5 % 04/04/2020 15:13 [facility] % Eosinophils 3.0 % 04/04/2020 15:13 [facility] % Basophils 0.8 % 04/04/2020 15:13 [facility] % Immature Grans 0.1 % 04/04/20 20 15:13 [facility] Absolute Neutrophils 3.87 2.20 - 8.85 K/cmm 04/04/2020 15:13 [facility] Absolute Lymphocytes 2.73 1.09 - 3.30 K/cmm 04/04/2020 15:13 [facility] Absolute Monocytes 0.48 0.10 - 0.80 K/cmm 04/04/2020 15:13 [facility] Absolute Eosinophils 0.22 0.03 - 0.61 K/cmm 04/04/2020 15:13 [facility] ABS Basophils 0.06 0.01 - 0.11 K/cmm 04/04/2020 15:13 [facility] Absolute Immature Grans 0.01 0.00 - 0.06 K/cmm 04/04/2020 15:13 [facility] Type of Differential: Auto 04/04/2020 15:13 [facility] Blood VENOUS BLOOD / Unknown Venipuncture / Unknown 04/04/2020 14:53 EDT 04/04/2020 14:58 EDT Augustina Colin MD PhD PACKAGES & DNA PROBE ORDERABLES [facility] [address] [place] [address] documented in this encounter Visit Diagnoses Diagnosis Metastatic breast cancer- Primary documented in this encounter Care Teams Wait Staff Relationship Specialty Start Date End Date Linda Blancas MD [facility] [address] [place] [address] PCP - General 01/06/11 Adolfo Carreno MD [address] [place] [address], [facility] 2 [place] [phone] General Surgery 04/26/19 Augustina Colin MD PhD [address] [place] [address] 2 [place] [phone] Medical Oncology 04/26/19 documented as of this encounter
--- OUTSIDE RECORDS SUMMARY | 2024-03-20 14:59 | XMS_ITS | Encounter Summary ---
Author Organization [facility] Address [address] [place] [address] Care Team Providers Care Stereo Equipment Installer Name Role Phone Linda Blancas MD Primary Care Provider [phone] Adolfo Carreno MD Unavailable [phone] Augustina Colin MD PhD Unavailable Unavailable Reason for Referral * Radiology Services (Routine) - Closed Specialty Diagnoses / Procedures Referred By Contac t Referred To Contact Radiology Diagnoses Pain in both lower extremities Procedures MR LUMBAR SPINE W WO CONTRAST Karen Holley PA-C [address] [place] [phone] Referral ID Status Reason Start Date Expiration Date Visits Re quested Visits Authorized [id number] Closed 03/18/2020 09/13/2020 1 1 Reason for Visit * Radiology Services (Routine) - Closed Specialty Diagnoses / Procedures Referred By Contac t Referred To Contact Radiology Diagnoses Pain in both lower extremities Procedures MR LUMBAR SPINE W WO CONTRAST Karen Holley PA-C [address] [place] [address] Referral ID Status Reason Start Date Expiration Date Visits Re quested Visits Authorized [id number] Closed 03/18/2020 09/13/2020 1 1 Encounter Details Date Type Department Care Team (Latest Contact Info) Description 03/28/2020 9:36 EDT - 03/28/2020 23:59 EDT Hospital Encounter Malorie Mcknight [facility] [address] [place] [address] Pain in both lower extremities Discharge Disposition: Home or Self Care Social [...] have Coronavirus / COVID-19? No / Unsure 03/28/2020 9:35 EDT documented as of this encounter Functional [...] [facility] [address] [place] [address] [phone] 04/02/2024 15:15 EDT Office Visit [facility] Surgical Oncology [address] [phone] Adolfo Carreno MD [address] [place] [address] 2 [place] [phone] 04/05/2024 9:30 EDT Telemedicine [facility] Palliative Care Services [address] [place] [address] [phone] Chichi Woods MD [address] [place] [address] [phone] 04/11/2024 15:00 EDT Telemedicine [facility] Hematology & Oncology [address] [phone] Alisson Carreon MD [address] [place] [phone] 04/13/2024 13:30 EDT Appointment [facility] Hematology & Oncology [address] [phone] 04/13/2024 14:00 EDT Appointment [facility] Hematology & Oncology [address] [phone] 04/16/2024 10:00 EST Telemedicine [facility] Palliative Care Services [address] [place] [address] [phone] Chichi Woods MD [address] [place] [address], [address] [place] [phone] 04/24/2024 9:00 EST Appointment [facility] Radiology CT Outpatient - [address] [id number] 04/24/2024 11:00 EST Appointment [facility] Breast Imaging - [facility] [address] [place], [place] 160571 04/27/2024 12:00 EST Appointment [facility] Hematology & Oncology [address] [phone] 05/02/2024 15:00 EST Telemedicine [facility] Hematology & Oncology [address] [phone] Alisson Carreon MD [address] [place] [address], [facility] Level 2 [place] [phone] 05/04/2024 10:15 EST Ancillary Procedure [facility] Cardiology - [address] [place] [address] 05/04/2024 11:30 EST Appointment [facility] Hematology & Oncology [address] [phone] 05/04/2024 12:00 EST Appointment [facility] Hematology & Oncology - [address] [phone] 06/12/2024 13:00 EST Appointment [facility] Radiology CT - [address] [phone] documented as of this encounter Procedures Procedure Name Priority Date/Time Associated Diagnosis Comments MR LUMBAR SPINE W WO CONTRAST Routine 03/28/2020 10:45 EDT Pain in both lower extremities documented in this encounter Results * MR LUMBAR SPINE W WO CONTRAST (03/28/2020 10:45 EDT) Anatomical Region Laterality Modality Spine Magnetic Resonan ce 03/28/2020 11:3 3 EDT Impressions 03/28/2020 11:33 EDT Status post L3-S1 posterior decompression and spinal fusion without evidence of spinal canal stenosis or high-grade neuroforaminal narrowing. Moderate degenerative disc changes and associated retrolisthesis at L1-2. Narrative 03/28/2020 11:33 EDT EXAM: MRI LUMBAR SPINE WO/W CONTRAST HISTORY: LOW BACK PAIN, PRIOR LUMBAR SURGERY. History of metastatic breast carcinoma. TECHNIQUE: MRI of the lumbar spine without and with intravenous gadolinium contrast. Structured report code: [id number] COMPARISON: Radiograph lumbar spine 03/07/2020 FINDINGS: SURGICAL CHANGES: Posterior spinal decompression and fusion with bilateral transpedicular screws from L3 through S1. Mature osseous fusion across the vertebral bodies. Hardware limits evaluation of the adjacent neural foramina. ALIGNMENT: Retrolisthesis at L1-2. Mild grade 1 anterolisthesis at the fused L4-5 level. BONES: No significant vertebral body height loss. No concerning focal osseous lesions. Mild endplate depression associated with reactive endplate changes at L1-2. INTERVERTEBRAL DISCS: Moderate disc height loss at L1-2. SPINAL CANAL: The conus terminates normally. No abnormality of the cauda equina. No fluid collections. ABNORMAL ENHANCEMENT: No abnormal intradural enhancement. Reactive enhancement at the L1-2 endplates. VISIBLE EXTRASPINAL SOFT TISSUES: Postsurgical changes from lower lumbar laminectomies with fluid loculations in the posterior epidural space, likely postsurgical seromas. EVALUATION BY LEVEL: T12-L1: Normal. L1-L2: Mild circumferential disc bulge and left foraminal protrusion produces mild left neuroforaminal narrowing. No significant spinal canal stenosis. L2-L3: No significant spinal canal stenosis or neuroforaminal narrowing. L3-L4: No significant spinal canal stenosis or neuroforaminal narrowing. L4-L5: No significant spinal canal stenosis. Apparent mild right neuroforaminal narrowing due to facet arthropathy. L5-S1: No spinal canal stenosis or neuroforaminal narrowing. Procedure Note Sven Gonzales MD - 03/28/2020 EXAM: MRI LUMBAR SPINE WO/W CONTRAST HISTORY: LOW BACK PAIN, PRIOR LUMBAR SURGERY. History of metastatic breastcarcinoma. TECHNIQUE: MRI of the lumbar spine without and with intravenous gadoliniumcontrast. Structured report code: [id number] COMPARISON: Radiograph lumbar spine 03/07/2020 FINDINGS: SURGICAL CHANGES: Posterior spinal decompression and fusion with bilateral transpedicularscrews from L3 through S1. Mature osseous fusion across the vertebralbodies. Hardware limits evaluation of the adjacent neural foramina. ALIGNMENT: Retrolisthesis at L1-2. Mild grade 1 anterolisthesis at the fused L4-5level. BONES: No significant vertebral body height loss. No concerning focal osseouslesions. Mild endplate depression associated with reactive endplatechanges at L1-2. INTERVERTEBRAL DISCS: Moderate disc height loss at L1-2. SPINAL CANAL: The conus terminates normally. No abnormality of the cauda equina. Nofluid collections. ABNORMAL ENHANCEMENT: No abnormal intradural enhancement. Reactive enhancement at the L1-2endplates. VISIBLE EXTRASPINAL SOFT TISSUES: Postsurgical changes from lower lumbar laminectomies with fluidloculations in the posterior epidural space, likely postsurgicalseromas. EVALUATION BY LEVEL: T12-L1: Normal. L1-L2: Mild circumferential disc bulge and left foraminal protrusionproduces mild left neuroforaminal narrowing. No significant spinal canalstenosis. L2-L3: No significant spinal canal stenosis or neuroforaminal narrowing. L3-L4: No significant spinal canal stenosis or neuroforaminal narrowing. L4-L5: No significant spinal canal stenosis. Apparent mild rightneuroforaminal narrowing due to facet arthropathy. L5-S1: No spinal canal stenosis or neuroforaminal narrowing. IMPRESSION Status post L3-S1 posterior decompression and spinal fusion withoutevidence of spinal canal stenosis or high-grade neuroforaminalnarrowing. Moderate degenerative disc changes and associated retrolisthesis atL1-2. Karen RENEE MRI ORDERAB LES documented in this encounter Visit Diagnoses Diagnosis Pain in both lower extremities documented in this encounter Administered Medications Inactive Administered Medications - up to 3 most recent administrations Medication Order MAR Action Action Date Dose Rate Site gadobutroL (GADAVIST PFS) solution solution 1-15 mmol 1-15 mmol (1-15 mL), intravenous, Once in imaging, 1 dose, Starting on Tue03/28/20 at 0945, Until 03/28/20 at 1045, Routine, Imaging Protocol Orders Given 03/28/2020 10:45 EDT 6 mmol documented in this encounter Care Teams Stereo Equipment Installer Relationship Specialty Start Date End Date Linda Blancas MD [facility] [address] [place] [address] PCP - General 01/06/11 Adolfo Carreno MD [address] [place] [phone] General Surgery 04/26/19 Augustina Colin MD PhD [address] [place] [phone] Medical Oncology 04/26/19 documented as of this encounter
--- OUTSIDE RECORDS SUMMARY | 2024-03-20 14:59 | XMS_ITS | Encounter Summary ---
Author Organization [facility] Address [address] [place] [address] Care Team Providers Care Emt P Name Role Phone Linda Blancas MD Primary Care Provider [phone] Adolfo Carreno MD Unavailable [phone] Augustina Colin MD PhD Unavailable Unavailable Reason for Visit * Reason Onset Date Comments Medication Management 05/15/2020 Encounter Details Date Type Department Care Team (Late st Contact Info) Description 05/15/2020 Telephone [facility] Hematology & Oncology - Main [place] [address] [place], [place] [phone] Augustina Colin, PhD Medication Management Social History [...] encounter Miscellaneous Notes * Telephone Encounter - Quita Rob RN - 05/15/2020 1546 EST Advised pt to stop her abemaciclib now per Dr Colin for surgery and then to restart in early June. Pt reports she stopped the abemaciclib a few days ago. Pt has a visit 05/[address] Colin anddarshanall discuss a plan to restart at that visit. * Telephone Encounter - Misa Sommer - 05/15/2020 0940 EST Reason for Call: Medication Management Summary/Symptoms: Patient is having a surgery on 05/26 and would like to speak to Quita or can send message in my chart regarding when she should stop the abemaciclib 150 mg Misa Sommer 05/15/2020 9:41 documented in this encounter Plan of Treatment Upcoming Encounters Date Type Department Care Team (Late st Contact Info) Description 04/02/2024 10:30 EDT Appointment [facility] Interventional Radiology Unit [address] [place] [address] [phone] 04/02/2024 15:15 EDT Office Visit [facility] Surgical Oncology - [address] [phone] Adolfo Carreno MD [address] [place] [address], Level [address] [place] [phone] 04/05/2024 9:30 EDT Telemedicine [facility] - [facility] Palliative Care Services [address] [place] [phone] Chichi Woods MD [address] [place] [address] [phone] 04/11/2024 15:00 EDT Telemedicine [facility] Hematology & Oncology [address] [phone] Alisson Carreon MD [address] [place] [address], Level [address] [place] [phone] 04/13/2024 13:30 EDT Appointment [facility] Hematology & Oncology [address] [phone] 04/13/2024 14:00 EDT Appointment [facility] Hematology & Oncology [address] [address] 04/16/2024 10:00 EST Telemedicine [facility] - [facility] Palliative Care Services [address] [place] [address] [phone] Chichi Woods MD [address] [place] [address] [phone] 04/24/2024 9:00 EST Appointment [facility] Radiology CT Outpatient - [address] [id number] 04/24/2024 11:00 EST Appointment [facility] Breast Imaging - [address] [phone] 04/27/2024 12:00 EST Appointment [facility] Hematology & Oncology - [address] [phone] 05/02/2024 15:00 EST Telemedicine [facility] Hematology & Oncology - [address] [phone] Alisson Carreon MD [address] [place] [address] 2 [place] [phone] 05/04/2024 10:15 EST Ancillary Procedure [facility] Cardiology - [address] [place], [place] [phone] 05/04/2024 11:30 EST Appointment [facility] Hematology & Oncology [address] [phone] 05/04/2024 12:00 EST Appointment [facility] Hematology & Oncology [address] [phone] 06/12/2024 13:00 EST Appointment [facility] Radiology CT - [address] [phone] documented as of this encounter Visit Diagnoses Not on filedocumented in this encounter Care Teams Emt P Relationship Specialty Start Date End Date Linda Blancas MD [facility] [address] [place], [place] 923022 PCP - General 01/06/11 Adolfo Carreno MD [address] [place] [address] [phone] General Surgery 04/26/19 Augustina Colin MD PhD [address] [place] [address] 2 [place] [phone] Medical Oncology 04/26/19 documented as of this encounter
--- OUTSIDE RECORDS SUMMARY | 2024-03-20 14:59 | XMS_ITS | Encounter Summary ---
Author Organization [facility] Address [address] [place] [address] Care Team Providers Care Chief Operator Lock Tender Name Role Phone Linda Blancas MD Primary Care Provider [phone] Adolfo Carreno MD Unavailable [phone] Augustina Colin MD PhD Unavailable Unavailable Encounter Details Date Type Department Care Team (Late st Contact Info) Description 05/07/2020 Orders Only [facility] Cancer Center Hematology & Oncology - Main [place] [address] [place] [address] Hetal Cedillo, RN [address] [address] Malignant neoplasm of right female breast, unspecified [...] [facility] [address] [place] [address] [phone] 04/02/2024 15:15 EDT Office Visit [facility] Surgical Oncology - [address] [phone] Adolfo Carreno MD [address] [place] [address] 2 [place] [phone] 04/05/2024 9:30 EDT Telemedicine [facility] [address] [place] [address] [phone] Chichi Woods MD [address] [place] [address] [phone] 04/11/2024 15:00 EDT Telemedicine [facility] Hematology & Oncology - [address] [phone] Alisson Carreon MD [address] [place] [address] [phone] 04/13/2024 13:30 EDT Appointment [facility] Hematology & Oncology [address] [phone] 04/13/2024 14:00 EDT Appointment [facility] Hematology & Oncology - [address] [phone] 04/16/2024 10:00 EST Telemedicine [facility] [address] [place], [place] 865371 Chichi Woods MD [address] [facility], [address] [phone] 04/24/2024 9:00 EST Appointment [facility] Radiology CT Outpatient - [address] [phone] 04/24/2024 11:00 EST Appointment [facility] Breast Imaging - [facility] [address] [phone] 04/27/2024 12:00 EST Appointment [facility] Hematology & Oncology - [address] [phone] 05/02/2024 15:00 EST Telemedicine [facility] Hematology & Oncology - [address] [phone] Alisson Carreon MD [address] [place] [address], Level [address] [place] [phone] 05/04/2024 10:15 EST Ancillary Procedure [facility] Cardiology [place] [address] 05/04/2024 11:30 EST Appointment [facility] Hematology & Oncology - [address] [address] 05/04/2024 12:00 EST Appointment [facility] Hematology & Oncology - [address] [address] 06/12/2024 13:00 EST Appointment [facility] Radiology CT - [address] [address] documented as of this encounter Visit Diagnoses Diagnosis Malignant neoplasm of right female breast, unspecified estrogen receptor status, unspecified site of breast ([facility])- Primary documented in this encounter Orders Appointment Requests Count Last Ordered Date Fi rst Ordered Date ONCBCN INJECTION APPOINTMENT REQUEST 1 05/13 documented in this encounter Care Teams Chief Operator Lock Tender Relationship Specialty Start Date End Date Linda Blancas MD [facility] [address] [place] [address] PCP - General 01/06/11 Adolfo Carreno MD [address] [place] [phone] General Surgery 04/26/19 Augustina Colin MD PhD [address] [place] [address] 2 [place] [phone] Medical Oncology 04/26/19 documented as of this encounter
--- OUTSIDE RECORDS SUMMARY | 2024-03-20 14:59 | XMS_ITS | Encounter Summary ---
Author Organization [facility] Address [address] [place] [address] Care Team Providers Care Consultant Nurse Name Role Phone Linda Blancas MD Primary Care Provider [phone] Adolfo Carreno MD Unavailable [phone] Augustina Colin MD PhD Unavailable Unavailable Reason for Visit * Laboratory Services (Routine) - Order Cancelled Specialty Diagnoses / Procedures Referred By Doug hearn Referred To Contact Diagnoses Metastatic breast cancer Procedures COMPLETE BLOOD COUNT AND DIFFERENTIAL Augustina Colin MD PhD Referral ID Status Reason Start Date Expiration Date V isits Requested Visits Authorized [id number] Order Cancelled 03/13/2019 1 1 Encounter Details Date Type Department Care Team (Late st Contact Info) Description 03/19/2020 13:00 EDT Phlebotomy Only [facility] ED Center 2 Phlebotomy [address] [place] [address], [place] [id number] Criminal Profiler, Acc Phlebotomy Metastatic breast cancer (HCC-CMS) (Primary Dx) Social [...] have Coronavirus / COVID-19? No / Unsure 03/19/2020 12:43 EDT documented as of this encounter Functional [facility] [address] [place] [address] [phone] 04/02/2024 15:15 EDT Office Visit [facility] Surgical Oncology - [address] [phone] Adolfo Carreno MD [address] [place] [address], [facility] [address] [place] [phone] 04/05/2024 9:30 EDT Telemedicine [facility] - [facility] Palliative Care Services [address] [place], [place] [phone] Chichi Woods MD [address] [place] [address], [place] [address] [place] [phone] 04/11/2024 15:00 EDT Telemedicine [facility] Hematology & Oncology - [address] [phone] Alisson Carreon MD [address] [place] [address], Level [address] [place] [phone] 04/13/2024 13:30 EDT Appointment [facility] Hematology & Oncology [address] [id number] 04/13/2024 14:00 EDT Appointment [facility] Hematology & Oncology - [address] [id number] 04/16/2024 10:00 EST Telemedicine [facility] - [facility] Palliative Care Services [address] [place] [address] [phone] Chichi Woods MD [address] [place] [address], [place] [address] [place] [phone] 04/24/2024 9:00 EST Appointment [facility] Radiology CT Outpatient - [address] [id number] 04/24/2024 11:00 EST Appointment [facility] Breast Imaging - [facility] S [address] [id number] 04/27/2024 12:00 EST Appointment [facility] Hematology & Oncology - [address] [id number] 05/02/2024 15:00 EST Telemedicine [facility] Hematology & Oncology - [address] [phone] Alisson Carreon MD [address] [place] [address], Level [address] [place] [phone] 05/04/2024 10:15 EST Ancillary Procedure [facility] Cardiology - [address] [place], [place] [phone] 05/04/2024 11:30 EST Appointment [facility] Hematology & Oncology - [address] [address] 05/04/2024 12:00 EST Appointment [facility] Hematology & Oncology [address] [address] 06/12/2024 13:00 EST Appointment [facility] Radiology CT - [address] [address] documented as of this encounter Procedures Procedure Name Priority Date/Time Associated Diagnosis Comments COMPREHENSIVE METABOLIC PANEL (ONCOLOGY USE ONLY-INC MG) STAT 03/19/2020 13:06 EDT Metastatic breast cancer ([facility]) COMPLETE BLOOD COUNT AND DIFFERENTIAL Routine 03/19/2020 13:06 EDT Metastatic breast cancer ([facility]) PHOSPHORUS STAT 03/19/2020 13:06 EDT Metastatic breast cancer ([facility]) documented in this encounter Results * (ABNORMAL) COMPREHENSIVE METABOLIC PANEL (ONCOLOGY USE ONLY-INC MG) (03/19/2020 13:06 EDT) Sodium 144 136 - 145 mEq/L 03/19/2020 13:30 [facility] Potassium 4.6 3.5 - 5.0 mEq/L 03/19/2020 13:30 [facility] Chloride 105 96 - 110 mEq/L 03/19/2020 13:30 [facility] CO2 Total 30 22 - 32 mEq/L 03/19/2020 13:30 [facility] Glucose 104(H) 70 - 100 mg/dL 03/19/2020 13:30 [facility] BUN 22 10 - 26 mg/dL 03/19/2020 13:30 [facility] Creatinine 0.69 0.52 - 1.04 mg/dL 03/19/2020 13:30 [facility] eGFR 96 >60 mL/min/1.7 3m2 03/19/2020 13:30 [facility] Comment:eGFR calculated gordo ureña CKD-EPI equation for non- Americans. Multiply eGFR by 1.16 for patients. Total Protein 6.9 6.3 - 8.2 g/dL 03/19/2020 13:30 EDT [facility] Albumin 4.0 3.4 - 4.9 g/dL 03/19/2020 13:30 EDT [facility] Alkaline Phosphatase 65 38 - 126 U/L 03/19/2020 13:30 EDT [facility] AST 28 15 - 46 U/L 03/19/2020 13:30 EDT [facility] ALT 21 <35 U/L 03/19/2020 13:30 T [facility] Bilirubin, Total <0.5 <1.4 mg/dL 03/19/20 20 13:30 T [facility] Calcium 9.6 8.5 - 10.5 mg/dL 03/19/2020 13:30 EDT [facility] Calculated Calcium 9.6 8.5 - 10.5 mg/dL 03/19/2020 13:30 EDT [facility] Magnesium 2.2 1.7 - 2.8 mg/dL 03/19/2020 13:30 T [facility] Blood VENOUS BLOOD / Unknown Venipuncture / Unknown 03/19/2020 13:06 EDT 03/19/2020 13:10 EDT Vanessa Rollins NP CHEMISTRY & BLOOD GA S ORDERABLES Performing Organization Address [facility] Co de Phone Number [facility] [address] [place] [address] * PHOSPHORUS (03/19/2020 13:06 EDT) Phosphorus 3.5 2.5 - 4.5 mg/dL 03/19/2020 13:30 EDT [facility] Blood VENOUS BLOOD / Unknown Venipuncture / Unknown 03/19/2020 13:06 EDT 03/19/2020 13:10 EDT Vanessa Rollins NP CHEMISTRY & BLOOD GA S ORDERABLES Performing Organization Address [facility] Co de Phone Number [facility] [address] [place] [address] * (ABNORMAL) COMPLETE BLOOD COUNT AND DIFFERENTIAL (03/19/2020 13:06 EDT) WBC 6.64 4.00 - 12.40 K/cmm 03/19/2020 13:26 [facility] RBC 4.35 3.86 - 5.04 M/cmm 03/19/2020 13:26 [facility] Hemoglobin 14.1 11.6 - 15.2 gm/dL 03/19/2020 13:26 [facility] HCT 43.3 34.9 - 44.4 % 03/19/2020 13:26 [facility] MCV 100(H) 81 - 98 fl 03/19/2020 13:26 [facility] MCH 32.4 26.7 - 33.3 pg 03/19/2020 13:26 [facility] MCHC 32.6 32.1 - 35.9 gm/dL 03/19/2020 13:26 [facility] RDW-CV 12.1 <14.7 % 03/19/2020 13:26 [facility] RDW-SD 44.5 <50.4 fl 03/19/2020 13:26 [facility] PLT 278 141 - 377 K/cmm 03/19/2020 13:26 [facility] MPV 10.2 9.5 - 12.7 fl 03/19/2020 13:26 [facility] % Neutrophils 56.5 % 03/19/2020 13:26 [facility] % Lymphocytes 33.0 % 03/19/2020 13:26 [facility] % Monocytes 7.4 % 03/19/2020 13:26 [facility] % Eosinophils 2.0 % 03/19/2020 13:26 [facility] % Basophils 0.8 % 03/19/2020 13:26 [facility] % Immature Grans 0.3 % 03/19/20 20 13:26 [facility] Absolute Neutrophils 3.76 2.20 - 8.85 K/cmm 03/19/2020 13:26 EDT [facility] Absolute Lymphocytes 2.19 1.09 - 3.30 K/cmm 03/19/2020 13:26 EDT [facility] Absolute Monocytes 0.49 0.10 - 0.80 K/cmm 03/19/2020 13:26 EDT [facility] Absolute Eosinophils 0.13 0.03 - 0.61 K/cmm 03/19/2020 13:26 EDT [facility] ABS Basophils 0.05 0.01 - 0.11 K/cmm 03/19/2020 13:26 T [facility] Absolute Immature Grans 0.02 0.00 - 0.06 K/cmm 03/19/2020 13:26 T [facility] Type of Differential: Auto 03/19/2020 13:26 T [facility] Blood VENOUS BLOOD / Unknown Venipuncture / Unknown 03/19/2020 13:06 EDT 03/19/2020 13:10 EDT Augustina Colin MD PhD PACKAGES & DNA PROBE ORDERABLES Performing Organization Address City/State/[facility] Co de Phone Number [facility] [address] [place] [address] documented in this encounter Visit Diagnoses Diagnosis Metastatic breast cancer- Primary documented in this encounter Care Teams Consultant Nurse Relationship Specialty Start Date End Date Linda Blancas MD [facility] [address] [place], [place] [address] PCP - General 01/06/11 Adolfo Carreno MD [address] [place] [phone] General Surgery 04/26/19 Augustina Colin MD PhD [address] [place] [phone] Medical Oncology 04/26/19 documented as of this encounter
--- OUTSIDE RECORDS SUMMARY | 2024-03-20 14:59 | XMS_ITS | Encounter Summary ---
Author Organization [facility] Address [address] [place] [address] Care Team Providers Care Hvac Estimator Name Role Phone Linda Blancas MD Primary Care Provider [phone] Adolfo Carreno MD Unavailable [phone] Augustina Colin MD PhD Unavailable Unavailable Reason for Visit * Reason Comments Pre-op Exam Encounter Details Date Type Department Care Team (Latest Contact Info) Description 04/30/2020 13:00 EST Office Visit [facility] Plastic, Reconstructive & Cosmetic Surgery - [address], [address] [place] [address] Tylor Boss MD [address] [phone] S/P breast reconstruction (Primary Dx) Social History Tobacco Use Types [...] of this encounter Progress Notes * Tylor Boss MD FACS - 04/30/2020 1300 EST Sendy follows up after her 04/26/2019 removal of right tissue director it project and placement of silicone implant and exchange of her previous left silicone implant to a larger implant for matching. 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 We discussed that the lateral dogear could be surgically treated and that thenipple revised and probably augmented with allograft maintain the volume. 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 We discussed that these all could be done at the same time. I think this would best be done in the operative setting under general anesthetic. Risks and benefits were thoroughly discussed with the patient. Signed informed consent was obtained today. I spent 35 minutes with this patient; 30 minutes was spent in counseling and coordination of care as described in the progress note. documented in this encounter Plan of Treatment Upcoming Encounters Date Type Department Care Team (Late st Contact Info) Description 04/02/2024 10:30 EDT Appointment [facility] Interventional Radiology Unit [address] [place] [address] 04/02/2024 15:15 EDT Office Visit [facility] Surgical Oncology - [address] [phone] Adolfo Carreno MD [address] [place] [address] 2 [place] [phone] 04/05/2024 9:30 EDT Telemedicine [facility] Palliative Care Services [address] [place] [phone] Chichi Woods MD [address] [place] [phone] 04/11/2024 15:00 EDT Telemedicine [facility] Hematology & Oncology - [address] [address] Alisson Carreon MD [address] [place] [address] 2 [place] [phone] 04/13/2024 13:30 EDT Appointment [facility] Hematology & Oncology - [address] [phone] 04/13/2024 14:00 EDT Appointment [facility] Hematology & Oncology - [address] [address] 04/16/2024 10:00 EST Telemedicine [facility] Palliative Care Services [address] [place] [phone] Chichi Woods MD [address] [place] [phone] 04/24/2024 9:00 EST Appointment [facility] Radiology CT Outpatient - [address] [id number] 04/24/2024 11:00 EST Appointment [facility] Breast Imaging - [facility] [address] [place] [address] [place], [place] [address] 04/27/2024 12:00 EST Appointment [facility] Hematology & Oncology [address] [address] 05/02/2024 15:00 EST Telemedicine [facility] Hematology & Oncology [address] 190931 Alisson Carreon MD [address] [place] [phone] 05/04/2024 10:15 EST Ancillary Procedure [facility] Cardiology - [address] [place] [address] 05/04/2024 11:30 EST Appointment [facility] Hematology & Oncology [address] [phone] 05/04/2024 12:00 EST Appointment [facility] Hematology & Oncology [address] [phone] 06/12/2024 13:00 EST Appointment [facility] Radiology CT - [address] [phone] documented as of this encounter Visit Diagnoses Diagnosis S/P breast reconstruction- Primary Breast replaced by other means documented in this encounter Care Teams Hvac Estimator Relationship Specialty Start Date End Date Linda Blancas MD [address] [place] [address] PCP - General 01/06/11 Adolfo Carreno MD [address] [place] [phone] General Surgery 04/26/19 Augustina Colin MD PhD [address] [facility], Level [address] [place] [phone] Medical Oncology 04/26/19 documented as of this encounter
--- OUTSIDE RECORDS SUMMARY | 2024-03-20 14:59 | XMS_ITS | Encounter Summary ---
Author Organization [facility] Address [address] [place] [address] Care Team Providers Care Sanitation Worker Cleaning Equipment Name Role Phone Linda Blancas MD Primary Care Provider [phone] Adolfo Carreno MD Unavailable [phone] Augustina Colin MD PhD Unavailable Unavailable Reason for Visit * Reason Comments Follow-up Encounter Details Date Type Department Care Team (Late st Contact Info) Description 03/19/2020 13:30 EDT Office Visit [facility] Hematology & Oncology - Main [place] [address] [place] [address], [place] [address] Augustina Colin, MD PhD Malignant neoplasm of [...] 12:43 EDT documented as of this encounter Last Filed Vital Signs Vital Sign Reading Time Taken Comments Blood Pressure 154/90 03/19/2020 1319 EDT Pulse 90 03/19/2020 1319 EDT Temperature 35.9 ??C (96.7 ??F) 03/19/2020 1319 EDT Respiratory Rate 16 03/19/2020 1319 EDT Oxygen Saturation 98% 03/19/2020 1319 EDT Inhaled Oxygen Concentration - - Weight 62.2 kg (137 lb 3.2 oz) 03/19/2020 1319 E DT Height - - Body Mass Index 25.51 03/06/2020 1430 EDT documented in this encounter Functional Status [...] Progress Notes * Augustina Colin MD - 03/19/2020 1330 EDT REASON FOR OFFICE VISIT: ??Discussion of imaging results ? PROBLEM LIST: 1. 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 a. ??Ultrasound performed in [place]??identifying an irregular heterogeneous soft tissue mass measuring 1.2 x 1.2 x 1.5 cm. ?? b.?Two punch biopsies near the site of the skin changes the right??breast perfomed by Dr Carreno??10/21/2016; ??Pathology identified an invasive ductal type carcinoma involving the epidermis and dermis of the skin, nuclear grade 2, which was ER+80%, OK+20%. ??HER-2 1+ by IHC. ??ANNE MARIE revealed [...] breast tumor 07/07/17 and placement of tissue spice room worker. ??1.9 cm tumor at time of surgery, [...] 03/06/20: Correlating area likely to correspond to Tyrese's pits that there were then metastasis. 3. [...] ??gastroesophageal reflux disease. ?? SUBJECTIVE: ??Ms Eldridge is receiving a televideo consultation today to discuss side effects related to faslodex. She had some nausea the next day while driving. Hot flashes are no different. She is aware of the MRI results and is following up with orthopedics. She plans to initiate the abemaciclib after a trip in January. This will likely be April 02. ROS: A 10 point review of systems was obtained. Other than described in the subjective she has no concerns or issues. Medications Prior to Today's Visit Medication Sig ??? abemaciclib 150 mg tablet Take 150 mg by mouth every 12 hours. ??? acetaminophen (TYLENOL) 325 mg tablet Take 2 tablets by mouth every 4 hours as needed for Pain.(Patient not taking: Reported on 01/28/2020) ??? calcium-vitamin D (OS-CHAR D) 500 mg(1,250mg) [...] ??? HYDROmorphone (DILAUDID) 2 mg tablet Take 1-2 Tabs by mouth every 4 hours as needed for Pain. Daily Max: 24 mg (Patient not taking: Reported on 06/04/2019) ??? ibuprofen (MOTRIN) 200 mg tablet Take 400 mg by mouth as needed. ??? letrozole (FEMARA) 2.5 mg tablet TAKE 1 TABLET DAILY ??? MULTIVITS W-CA,FE,OTHER MIN (WOMEN'S DAILY FORMULA ORAL) Take by mouth daily. ??? mv-mn/C/glutamin/lysin/[id number] (AIRBORNE, ASCORBATE SODIUM, ORAL) Take by mouth as needed. ??? omeprazole (PRILOSEC) 20 mg capsule Take 20 mg by mouth daily. ??? ondansetron (ZOFRAN-ODT) 4 mg disintegrating tablet Take 1 Tab by mouth every 8 hours as neededfor Nausea. (Patient not taking: Reported on 07/11/2019) ??? RED YEAST RICE EXTRACT ORAL Take [...] active. She is enjoying the fall. Objective: BP (!) 154/90 Pulse 90 Temp 35.9 ??C (96.7 ??F) (Tympanic) Resp 16 Wt 62.2 kg (137 lb 3.2 oz) SpO2 98% BMI 25.51 kg/m?? Estimated body mass index is 25.51 kg/m?? as calculated from the following: Height as of 03/06/20: 156.2 cm (61.5). Weight as of this encounter: 62.2 kg (137 lb 3.2 oz). ECOG Performance Status: 0 General: Comfortable, cooperative and in no apparent distress NEURO: Alert and oriented x 3; Grossly neurologically intact DIAGNOSTIC DATA Phlebotomy Only on 03/19/2020 Component Date Value Ref Range Status ??? WBC 03/19/2020 6.64 4.00 - 12.40 K/cmm Final ??? RBC 03/19/2020 4.35 3.86 - 5.04 M/cmm Final ??? Hemoglobin 03/19/2020 14.1 11.6 - 15.2 gm/dL Final ??? HCT 03/19/2020 43.3 34.9 - 44.4 % Final ??? MCV 03/19/2020 100* 81 - 98 fl Final ??? MCH 03/19/2020 32.4 26.7 - 33.3 pg Final ??? MCHC 03/19/2020 32.6 32.1 - 35.9 gm/dL Final ? ? RDW-CV 03/19/2020 12.1 <14.7 % Final ? ? RDW-SD 03/19/2020 44.5 <50.4 fl Final ??? PLT 03/19/2020 278 141 - 377 K/cmm Final ??? MPV 03/19/2020 10.2 9.5 - 12.7 fl Final ??? Neutrophils 03/19/2020 56.5 % Final ??? Lymphocytes 03/19/2020 33.0 % Final ??? Monocytes 03/19/2020 7.4 % Final ??? Eosinophils 03/19/2020 2.0 % Final ??? Basophils 03/19/2020 0.8 % Final ??? Immature Grans 03/19/2020 0.3 % Final ??? Absolute Neutrophils 03/19/2020 3.76 2.20 - 8.85 K/cmm Final ??? Absolute Lymphocytes 03/19/2020 2.19 1.09 - 3.30 K/cmm Final ??? Absolute Monocytes 03/19/2020 0.49 0.10 - 0.80 K/cmm Final ??? Absolute Eosinophils 03/19/2020 0.13 0.03 - 0.61 K/cmm Final ??? Absolute Basophils 03/19/2020 0.05 0.01 - 0.11 K/cmm Final ??? Absolute Immature Grans 03/19/2020 0.02 0.00 - 0.06 K/cmm Final ??? Type of Differential: 03/19/2020 Auto Final ??? Phosphorus 03/19/2020 3.5 2.5 - 4.5 mg/dL Final ??? Sodium 03/19/2020 144 136 - 145 mEq/L Final ??? Potassium 03/19/2020 4.6 3.5 - 5.0 mEq/L Final ??? Chloride 03/19/2020 105 96 - 110 mEq/L Final ??? CO2 Total 03/19/2020 30 22 - 32 mEq/L Final ??? Glucose 03/19/2020 104* 70 - 100 mg/dL Final ??? BUN 03/19/2020 22 10 - 26 mg/dL Final ??? Creatinine 03/19/2020 0.69 0.52 - 1.04 mg/dL Final ? ? eGFR 03/19/2020 96 >60 mL/min/1.73m2 Final eGFR calculated using CKD-EPI equation for non- Americans. Multiply eGFR by 1.16 for AfricanAmerican patients. ??? Total Protein 03/19/2020 6.9 6.3 - 8.2 g/dL Final ??? Albumin 03/19/2020 4.0 3.4 - 4.9 g/dL Final ??? Alkaline Phosphatase 03/19/2020 65 38 - 126 U/L Final ??? AST 03/19/2020 28 15 - 46 U/L Final ? ? ALT 03/19/2020 21 <35 U/L Final ? ? Bilirubin, Total 03/19/2020 <0.5 <1.4 mg/dL Final ??? Calcium 03/19/2020 9.6 8.5 - 10.5 mg/dL Final ??? Calculated Calcium 03/19/2020 9.6 8.5 - 10.5 mg/dL Final ??? Magnesium 03/19/2020 2.2 1.7 - 2.8 mg/dL Final ASSESSMENT: ??Ms Bernstein is a 59-year-old female with metastatic breast cancer.?? Restaging scans indicated enlargement of a left cervical lymph node. Dr. Carreno biopsied it and results were consistent with metastatic breast cancer. It is less clear that she has progressive disease elsewhere.MRI of the abdomen was unable to characterize the small liver lesions. We will plan to repeat this if it shows up again on CT scan in May. She initiated Faslodex and is tolerating it. We will plan to initiate abemaciclib as well after a planned trip. PLAN: 1. Faslodex 500mg in two weeks and then monthly 3. Initiate abemaciclib March 31 2020 4. Continue zoledronic acid every 6 months for now. Next due Jun 2020 5..??Continued follow-up with Dr. Carreno 6. ??Follow-up return?? approximately 2 month??when she is due for Faslodex. Time with Plastic surgery. ? Patient is encouraged call with any intercurrent concerns or problems. ? TELEMEDICINE VIDEO VISIT ?? Today's visit was provided through telemedicine video conferencing: ?? I have reviewed the appropriateness of using video technology with the patient with regards to today's visit. The location of the patient : Home ?? The location of the provider: Office ?? The following staff and their role did participate in today's encounter visit: Augustina Colin MD ?? Augustina Colin MD 03/18/2020 19:40 documented in this encounter Plan of Treatment Upcoming Encounters Date Type Department Care Team (Late st Contact Info) Description 04/02/2024 10:30 EDT Appointment [facility] Interventional Radiology Unit [address] [place] [address] [phone] 04/02/2024 15:15 EDT Office Visit [facility] Surgical Oncology - [address] [phone] Adolfo Carreno MD [address] [place] [address], [facility] 2 [place] [phone] 04/05/2024 9:30 EDT Telemedicine [facility] - [facility] Palliative Care Services [address] [place] [address] [phone] Chichi Woods MD [address] [place] [address], [address] [phone] 04/11/2024 15:00 EDT Telemedicine [facility] Hematology & Oncology - [address] 123211 Ailsson Carreon MD [address] [place] [address], [address] [place] [phone] 04/13/2024 13:30 EDT Appointment [facility] Hematology & Oncology [address] [phone] 04/13/2024 14:00 EDT Appointment [facility] Hematology & Oncology [address] [phone] 04/16/2024 10:00 EST Telemedicine [facility] - [facility] Palliative Care Services [address] [place] [address] [phone] Chichi Woods MD [address] [place] [address], [address] [phone] 04/24/2024 9:00 EST Appointment [facility] Radiology CT Outpatient - [address] [id number] 04/24/2024 11:00 EST Appointment [facility] Breast Imaging - [facility] [address] [phone] 04/27/2024 12:00 EST Appointment [facility] Hematology & Oncology - [address] [phone] 05/02/2024 15:00 EST Telemedicine [facility] Hematology & Oncology - [address] [phone] Alisson Carreon MD [address] [place] [address], Level [address] [place] [phone] 05/04/2024 10:15 EST Ancillary Procedure [facility] Cardiology - [address] [place], [place] [phone] 05/04/2024 11:30 EST Appointment [facility] Hematology & Oncology - [address] [phone] 05/04/2024 12:00 EST Appointment [facility] Cancer Center Hematology & Oncology - [address] [address] 06/12/2024 13:00 EST [facility]ment [facility] Rad[facility] - [address] [address] documented as of this encounter Visit Diagnoses Diagnosis Malignant neoplasm of right female breast, unspecified estrogen receptor status, unspecified site of breast ([facility])- Primary documented in this encounter Care Teams Sanitation Worker Cleaning Equipment Relationship Specialty Start Date End Date Linda Blancas MD [address] [place] [address] 30 [place] [address] PCP - General 01/06/11 Adolfo Carreno MD [address] [place] [address] 2 [place] [phone] General Surgery 04/26/19 Augustina Colin MD PhD [address] [place] [phone] Medical Oncology 04/26/19 documented as of this encounter
--- OUTSIDE RECORDS SUMMARY | 2024-03-20 14:59 | XMS_ITS | Encounter Summary ---
Author Organization [facility] Address [address] [place] [address] Care Team Providers Care Revenue Coordinator Name Role Phone Linda Blancas MD Primary Care Provider [phone] Adolfo Carreno MD Unavailable [phone] Augustina Colin MD PhD Unavailable Unavailable Encounter Details Date Type Department Care Team (Latest Contact Info) Description 04/04/2020 Travel Social History Tobacco Use Types Packs/Day [...] Appointment [facility] Interventional Radiology Unit [address] [place] [address] [phone] 04/02/2024 15:15 EDT Office Visit [facility] Surgical Oncology - [address] [phone] Adolfo Carreno MD [address] [place] [address] 2 [place] [phone] 04/05/2024 9:30 EDT Telemedicine [facility] - [facility] Palliative Care Services [address] [place] [address] [phone] Chichi Woods MD [address] [place] [phone] 04/11/2024 15:00 EDT Telemedicine [facility] Hematology & Oncology [address] [phone] Alisson Carreon MD [address] [place] [phone] 04/13/2024 13:30 EDT Appointment [facility] Hematology & Oncology [address] [id number] 04/13/2024 14:00 EDT Appointment [facility] Hematology & Oncology [address] [id number] 04/16/2024 10:00 EST Telemedicine [facility] - [facility] Palliative Care Services [address] [place] [address] [phone] Chichi Woods MD [address] [place] [address], [address] [phone] 04/24/2024 9:00 EST Appointment [facility] Radiology CT Outpatient - [address] [id number] 04/24/2024 11:00 EST Appointment [facility] Breast Imaging - [facility] S [place] [address] [place], [place] 029051 04/27/2024 12:00 EST Appointment [facility] Hematology & Oncology - [address] [phone] 05/02/2024 15:00 EST Telemedicine [facility] Hematology & Oncology - [address] [phone] Alisson Carreon MD [address] [place] [address], Level [address] [place] [phone] 05/04/2024 10:15 EST Ancillary Procedure [facility] Cardiology - [place] [address] 05/04/2024 11:30 EST Appointment [facility] Hematology & Oncology - [address] [id number] 05/04/2024 12:00 EST Appointment [facility] Hematology & Oncology [address] [id number] 06/12/2024 13:00 EST Appointment [facility] Radiology CT - [address] [id number] documented as of this encounter Visit Diagnoses Not on filedocumented in this encounter Care Teams Revenue Coordinator Relationship Specialty Start Date End Date Linda Blancas MD [facility] [address] [place] [address] PCP - General 01/06/11 Adolfo Carreno MD [address] [place] [address] 2 [place] [phone] General Surgery 04/26/19 Augustina Colin MD PhD [address] [place] [address], [facility] 2 [place] [phone] Medical Oncology 04/26/19 documented as of this encounter
--- OUTSIDE RECORDS SUMMARY | 2024-03-20 14:59 | XMS_ITS | Encounter Summary ---
Author Organization [facility] Address [address] [place] [address] Care Team Providers [employer] Flatbed Truck Driver Name Role Phone Linda Blancas MD Primary Care Provider [phone] Adolfo Carreno MD Unavailable [phone] Augustina Colin MD PhD Unavailable Unavailable Reason for Visit * Reason Comments Gynecologic Exam Encounter Details Date Type Department Care Team (Late st Contact Info) Description 04/30/2020 15:00 EST Office Visit [facility] OBGYN Services - [address] [phone] Quita Babb PA-C [address] [place] [address], Level [address] [place] [phone] Encounter for gynecological examination without [...] 9:36 EDT documented as of this encounter Last Filed Vital Signs Vital Sign Reading Time Taken Comments Blood Pressure 110/70 06/08/2020 1352 EST Pulse - - Temperature - - Respiratory Rate - - Oxygen Saturation - - Inhaled Oxygen Concentration - - Weight 62.6 kg (138 lb) 06/08/2020 1352 EST Height - - Body Mass Index 25.65 05/14/2020 1124 EST documented in this encounter [...] Progress Notes * Quita Babb PA-C - 04/30/2020 1500 EST Subjective: Patient ID: Sunshine Pleitez is an 59 y.o. female. Chief Complaint Patient presents with ??? Gynecologic Exam HPI Chief complaint: Annual gynecologic exam HPI: Sunshine Pleitez is a 59 y.o. woman who presents today for a yearly exam, last seen in 03/2019 for an annual pipe maker exam. Sendy continues to undergo treatment for [...] her diagnosis was on yearly surveillance. ??In October, she noticed some changes in her right breast, which ultimately led to imaging and a biopsy that was consistent invasive ductal carcinoma, with disease on her right chest wall, as well as enlarged mediastinal lymph nodes and small lung nodules. She is currently receiving treatment with Dr. Colin, consisting of letrozole, tolerating this reasonably well. ?? Prior to her breast cancer history, [...] except for the Effexor (75mg daily) about 3 years ago, and hadbeen doing fine, but [...] well,and has no complaints regarding this today. She also began having abnormal pap smears [...] 03/2019 (NIL, neg HR HPV, done at [facility], result in scanned documents). History of STDs: HSV, on valtrex suppression Currently at risk or concerns of STD: no, stable relationship Vaginal complaints: None today, not frequently SA due to 's medical conditions, but no significant dryness or dyspareunia. Bladder complaints: none Bowel complaints: none Other complaints: none Other concerns: none Hot flashes better than in the past. Health Maintenance Mammogram: As above, s/p bilateral mastectomies, and undergoing tx for recurrent breast cancer. Is scheduled to have breast revision surgery with Dr. Boss. Colonoscopy: utd Cholesterol screening: utd through her pcp DEXA: followed by medical oncology Immunizations: Tetanus: utd Gardasil NA Social history: reports that she has never smoked. She has never used smokeless tobacco. The patient states she drinks rarely per week. Employment history/work hazards: Currently on disability. 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 Exercise: active Calcium:diet and supplement Vitamin D: [...] History: Diagnosis Date ??? Acquired spondylolisthesis ??? Allergy ??? Arthritis ??? Back pain 05/07/2019 pt denies ??? 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 Breast cancer, right (HCC-CMS) ??? Depression ??? Environmental allergies ??? Exercise involving walking ??? GERD (gastroesophageal reflux disease) 05/07/2019 per pt takes omeprozole profolactially ??? Hearing loss ??? 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 ??? Lumbar radicular syndrome ??? Numbness ??? Wears glasses Past Surgical [...] [place] no complications ??? BREAST SURGERY 08/2018 locum tenens placed right breast - [place] no complications ??? CARPAL TUNNEL RELEASE 200705/07/2019 beir block - no complications ??? LIPOMA RESECTION 2001 05/07/2019 [place] no complications ??? MASTECTOMY Right ??? NE DELAY BREAST PROS AFTER BREAST SURG Bilateral 05/30/2019 Exchange right tissue locum tenens to silicone implant, exchange of left implant for matching performedby Tylor Boss MD at [facility] OR Family History Problem [...] to Visit Medication Sig Dispense Refill ??? abemaciclib 150 mg tablet Take 150 mg by mouth every 12 hours. 60 Tab 2 ??? acetaminophen (TYLENOL) 325 mg tablet Take [...] FORMULA ORAL) Take by mouth daily. ??? mv-mn/C/glutamin/lysin/pcot932 (AIRBORNE, ASCORBATE SODIUM, ORAL) Take by mouth as needed. ??? omeprazole (PRILOSEC) 20 mg capsule Take 20 mg by mouth daily. ??? ondansetron (ZOFRAN-ODT) 4 mg disintegrating tablet Take 1 Tab by mouth every 8 hours as neededfor Nausea. (Patient not taking: Reported on 07/11/2019) 20 Tab 1 ??? RED YEAST RICE EXTRACT ORAL Take [...] Psychiatric/Behavioral: Negative. - See HPI Objective: BP 110/70 Wt 62.6 kg (138 lb) BMI 25.65 kg/m?? Physical Exam Constitutional: She is oriented to person, place, and time. She appears well- developed and well-nourished. No distress. HENT: Head: Normocephalic and atraumatic. Eyes: Pupils are equal, round, and reactive to light. Neck: Normal range of motion. No thyromegaly present. Cardiovascular: Normal rate, regular [...] and uterus normal. No vaginal discharge. Musculoskeletal: Normal range of motion. Lymphadenopathy: She has no cervical adenopathy. She has no axillary adenopathy. Neurological: She is alert and oriented to person, place, and time. Skin: Skin is warm and dry. No erythema. No pallor. Psychiatric: She has a normal mood and affect. Her behavior is normal. Judgment and thought contentnormal. 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 Currently in treatment for metastatic breast cancer. Plan: Sunshine was seen today for gynecologic exam. Diagnoses and all orders for this visit: Encounter for gynecological examination without abnormal finding Pap deferred, now on routine screening schedule, q 5 years, per current asccp guidelines. Discussed vaginal moisturizers, such as replens to help with vaginal dryness. Ongoing follow up with medical oncology for treatment of metastatic breast cancer. Calcium, vitamin D for bone density protection. Return to office in 1 year, sooner PRN. TANK Felipe documented in this encounter Plan of Treatment Upcoming Encounters Date Type Department Care Team (Late st Contact Info) Description 04/02/2024 10:30 EDT Appointment [facility] Interventional Radiology Unit [address] [place], [place] 126901 04/02/2024 15:15 EDT Office Visit [facility] Surgical Oncology - [facility] [address] [place], [place] [phone] Adolfo Carreno MD [address] [facility], Level [address] [place] [phone] 04/05/2024 9:30 EDT Telemedicine [facility] Palliative Care Services [address] [place] [address] [phone] Chichi Woods MD [address] [place] [phone] 04/11/2024 15:[address] [facility] Hematology & Oncology - [address] [phone] Alisson Carreon MD [address] [place] [address], [address] [place] [phone] 04/13/2024 13:[address] [facility] Hematology & Oncology [address] [phone] 04/13/2024 14:[address] [facility] Hematology & Oncology [address] [phone] 04/16/2024 10:00 EST Telemedicine [facility] Palliative Care Services [address] [place] [address] [phone] Chichi Woods MD [address] [place] [address] [phone] 04/24/2024 9:00 EST Appointment [facility] Radiology CT Outpatient - [address] [address] 04/24/2024 11:00 EST Appointment [facility] Breast Imaging - [address] [phone] 04/27/2024 12:[address] [facility] Hematology & Oncology - [address] [phone] 05/02/2024 15:[address] [facility] Hematology & Oncology - [address] [phone] Alisson Carreon MD [address] [place] [address] [phone] 05/04/2024 10:15 EST Ancillary Procedure [facility] Cardiology - [address] [place], [place] [phone] 05/04/2024 11:[address] [facility] Hematology & Oncology [address] [phone] 05/04/2024 12:[address] [facility] Hematology & Oncology [address] [phone] 06/12/2024 13:00 EST Appointment [facility] Radiology CT - [address] [phone] documented as of this encounter Procedures Procedure Name Priority Date/Time Associated Diagnosis Comments PATHOLOGY - SCANNED 08/26/2020 8:14 EDT documented in this encounter Results * PATHOLOGY - SCANNED (08/26/2020 8:14 EDT) 08/26/2020 8:14 EDT Scan 2 Conservation Science Officer LAB INFO SERVICE AN D SUPPORT & PHONE RESULT documented in this encounter Visit Diagnoses Diagnosis Encounter for gynecological examination without abnormal finding- Primary Routine gynecological examination documented in this encounter Care Teams [employer] Flatbed Truck Driver Relationship Specialty Start Date End Date Linda Blancas MD [facility] [address] [place] [address] PCP - General 01/06/11 Adolfo Carreno MD [address] [place] [address], [address] [phone] General Surgery 04/26/19 Augustina Colin MD PhD [address] [place] [address], [facility] 2 [place] [phone] Medical Oncology 04/26/19 documented as of this encounter
--- OUTSIDE RECORDS SUMMARY | 2024-03-20 14:59 | XMS_ITS | Encounter Summary ---
Author Organization [facility] Address [address] [place] [address] Care Team Providers Care Drafter Automotive Design Name Role Phone Linda Blancas MD Primary Care Provider [phone] Adolfo Carreno MD Unavailable [phone] Augustina Colin MD PhD Unavailable Unavailable Encounter Details Date Type Department Care Team (Late st Contact Info) Description 04/23/2020 Specialty Pharmacy [facility] Ambulatory Pharmacy - [address] 153161 [place], [facility] Social History Tobacco Use Types [...] Appointment [facility] Interventional Radiology Unit [address] [place] [address] [phone] 04/02/2024 15:15 EDT Office Visit [facility] Surgical Oncology - [address] [phone] Adolfo Carreno MD [address] [place] [address] 2 [place] [phone] 04/05/2024 9:30 EDT Telemedicine [facility] Palliative Care Services [address] [place] [address] [phone] Chichi Woods MD [address] [place] [address] [phone] 04/11/2024 15:00 EDT Telemedicine [facility] Hematology & Oncology [address] [phone] Alisson Carreon MD [address] [place] [address] 2 [place] [phone] 04/13/2024 13:30 EDT Appointment [facility] Hematology & Oncology [address] [phone] 04/13/2024 14:00 EDT Appointment [facility] Hematology & Oncology - [address] [address] 04/16/2024 10:00 EST Telemedicine [facility] Palliative Care Services [address] [place], [place] 556741 Chichi Woods MD [address] [place], [address] [phone] 04/24/2024 9:00 EST Appointment [facility] Rad[facility] CT Outpatient - [address] [address] 04/24/2024 11:00 EST Appointment [facility] Breast Imaging - [address] [address] 04/27/2024 12:00 EST Appointment [facility] Hematology & Oncology - [address] 035011 05/02/2024 15:00 EST Telemedicine [facility] Hematology & Oncology - [address] 578281 Alisson Carreon MD [address] [place] [address], Level [address] [place] [phone] 05/04/2024 10:15 EST Ancillary Procedure [facility] Cardiology [place] [address] [place] [address] 05/04/2024 11:30 EST Appointment [facility] Hematology & Oncology - [address] [address] 05/04/2024 12:00 EST Appointment [facility] Hematology & Oncology - [address] [address] 06/12/2024 13:00 EST Appointment [facility] Radiology CT - [address] [phone] documented as of this encounter Visit Diagnoses Not on filedocumented in this encounter Additional Health Concerns Infection Onset Date Last Indicated Resolved Time R/O COVID-19 12/12/2023 12/12/2023 12/12/2023 15:3 5 EDT R/O COVID-19 01/08/2024 01/08/2024 01/08/2024 18:2 6 EDT R/O COVID-19 01/16/2024 01/16/2024 01/16/2024 17:5 0 EDT documented as of this encounter Care Teams Drafter Automotive Design Relationship Specialty Start Date End Date Linda Blancas MD [facility] [address] [place] [address] PCP - General 01/06/11 Adolfo Carreno MD [address] [place] [address] [phone] General Surgery 04/26/19 Augustina Colin MD PhD [address] [place] [phone] Medical Oncology 04/26/19 documented as of this encounter
--- OUTSIDE RECORDS SUMMARY | 2024-03-20 14:59 | XMS_ITS | Encounter Summary ---
Author Organization [facility] Address [address] [place] [address] Care Team Providers Care Shipmaster Name Role Phone Linda Blancas MD Primary Care Provider [phone] Adolfo Carreno MD Unavailable [phone] Augustina Colin MD PhD Unavailable Unavailable Encounter Details Date Type Department Care Team (Latest Contact Info) Description 03/28/2020 Travel Social History Tobacco Use Types Packs/Day [...] [facility] [address] [place] [address] [phone] 04/02/2024 15:15 EDT Office Visit [facility] Surgical Oncology - [address] [phone] Adolfo Carreno MD [address] [place] [address] 2 [place] [phone] 04/05/2024 9:30 EDT Telemedicine [facility] - [facility] Palliative Care Services [address] [place] [address] [phone] Chichi Woods MD [address] [place] [phone] 04/11/2024 15:00 EDT Telemedicine [facility] Hematology & Oncology [address] [phone] Alisson Carreon MD [address] [place] [address] [phone] 04/13/2024 13:30 EDT Appointment [facility] Hematology & Oncology [address] [phone] 04/13/2024 14:00 EDT Appointment [facility] Hematology & Oncology [address] [phone] 04/16/2024 10:00 EST Telemedicine [facility] - [facility] Palliative Care Services [address] [place] [address] 128221 Chichi Woods MD [address] [place] [address], [address] [phone] 04/24/2024 9:00 EST Appointment [facility] Radiology CT Outpatient - [address] 318991 04/24/2024 11:00 EST Appointment [facility] Breast Imaging - [facility] [address] [place] [address] [place], [place] 579861 04/27/2024 12:00 EST Appointment [facility] Hematology & Oncology - [address] [phone] 05/02/2024 15:00 EST Telemedicine [facility] Hematology & Oncology - [address] 623471 Alisson Carreon MD [address] [place] [address], Level [address] [place] [phone] 05/04/2024 10:15 EST Ancillary Procedure [facility] Cardiology [place] [address] 05/04/2024 11:30 EST Appointment [facility] Hematology & Oncology - [address] [phone] 05/04/2024 12:00 EST Appointment [facility] Hematology & Oncology [address] [phone] 06/12/2024 13:00 EST Appointment [facility] Radiology CT - [address] [phone] documented as of this encounter Visit Diagnoses Not on filedocumented in this encounter Care Teams Shipmaster Relationship Specialty Start Date End Date Linda Blancas MD [facility] [address] [place] [address] PCP - General 01/06/11 Adolfo Carreno MD [address] [place] [address] 2 [place] [phone] General Surgery 04/26/19 Augustina Colin MD PhD [address] [place] [address], [facility] 2 [place] [phone] Medical Oncology 04/26/19 documented as of this encounter
--- OUTSIDE RECORDS SUMMARY | 2024-03-20 14:59 | XMS_ITS | Encounter Summary ---
Author Organization [facility] Address [address] [place] [address] Care Team Providers Care Blacktop Paver Operator Name Role Phone Linda Blancas MD Primary Care Provider [phone] Adolfo Carreno MD Unavailable [phone] Augustina Colin MD PhD Unavailable Unavailable Encounter Details Date Type Department Care Team (Late st Contact Info) Description 03/07/2020 Orders Only [facility] Spine Program - [address] [address] Karen Holley PA-C [address] [place] [address] [place] [phone] Social History Tobacco Use Types Packs/Day Years [...] have Coronavirus / COVID-19? No / Unsure 02/19/2020 8:26 EDT documented as of this encounter Functional [...] [facility] Interventional Radiology Unit [address] [place] [address] 04/02/2024 15:15 EDT Office Visit [facility] Surgical Oncology - [address] 740751 Adolfo Carreno MD [address] [place] [address] 2 [place] [phone] 04/05/2024 9:30 EDT Telemedicine [facility] - [facility] Palliative Care Services [address] [place], [place] 267261 Chichi Woods MD [address] [place] [address], [address] [phone] 04/11/2024 15:00 EDT Telemedicine [facility] Hematology & Oncology - [address] [phone] Alisson Carreon MD [address] [place] [address] 2 [place] [phone] 04/13/2024 13:30 EDT Appointment [facility] Hematology & Oncology - [address] [phone] 04/13/2024 14:00 EDT Appointment [facility] Hematology & Oncology [address] [address] 04/16/2024 10:00 EST Telemedicine [facility] - [facility] Palliative Care Services [address] [place] [address] [phone] Chichi Woods MD [address] [place] [address] [phone] 04/24/2024 9:00 EST Appointment [facility] Radiology CT Outpatient - [address] 512471 04/24/2024 11:00 EST Appointment [facility] Breast Imaging - [facility] S [address] [phone] 04/27/2024 12:00 EST Appointment [facility] Hematology & Oncology - [address] 675441 05/02/2024 15:00 EST Telemedicine [facility] Hematology & Oncology [address] [phone] Alisson Carreon MD [address] [place] [address], Level [address] [place] [phone] 05/04/2024 10:15 EST Ancillary Procedure [facility] Cardiology [place] [address] 05/04/2024 11:30 EST Appointment [facility] Hematology & Oncology - [address] [phone] 05/04/2024 12:00 EST Appointment [facility] Hematology & Oncology - [address] [address] 06/12/2024 13:00 EST Appointment [facility] Radiology CT - [address] 939011 documented as of this encounter Visit Diagnoses Not on filedocumented in this encounter Care Teams Blacktop Paver Operator Relationship Specialty Start Date End Date Linda Blancas MD [facility] [address] [place], [place] 281732 PCP - General 01/06/11 Adolfo Carreno MD [address] [place] [address] 2 [place] [phone] General Surgery 04/26/19 Augustina Colin MD PhD [address] [place] [address] 2 [place] [phone] Medical Oncology 04/26/19 documented as of this encounter
--- OUTSIDE RECORDS SUMMARY | 2024-03-20 14:59 | XMS_ITS | Encounter Summary ---
Author Organization [facility] Address [address] [place] [address] Care Team Providers Care Sas Statistical Programmer Name Role Phone Linda Blancas MD Primary Care Provider [phone] Adolfo Carreno MD Unavailable [phone] Augustina Colin MD PhD Unavailable Unavailable Reason for Visit * Reason Comments Back Pain Low back pain Encounter Details Date Type Department Care Team (Late st Contact Info) Description 04/04/2020 9:30 EDT Office Visit [facility] Spine Program - [address] [address] Karen Holley PA-C [address] [place] [address] [place] [address] Low back pain, unspecified back pain laterality, unspecified chronicity, unspecified whether sciatica present (Primary Dx); Pain in both thighs Social History Tobacco Use Types Packs/Day Years [...] of this encounter Progress Notes * Karen Holley PA-C - 04/04/2020 0961 EDT Subjective: 59-year-old female, here today for lumbar MRI W/Wo contrast review. She is s/p L3-S1 fusion (2011, [facility]) and stage IV breast cancer s/p right mastectomy (2003) with recurrence on the right (s/p resection June 2017) and more recent recurrence in January 2020 with metastasis to lungs here today with bilateral leg pain which she feels primarily in the posterior thighs, R>L. Symptoms began abou t 7 months ago as she transitioned from doing a lot of walking to more gardening. No clear event that she is aware of. States pain runs through the buttock down into the posterior thigh with paresthesias which sometimes feel like insects crawling on her along the anterior young. Symptoms are worse when she is driving or laying on the right side. States she generally has to lay on her back to fall asleep. Generally sleeping pretty well. She is on chronic gabapentin, unsure if this is helping her current symptoms. Denies fever, night sweats, unintentional weight loss. States she recently changedher cancer medication which resulted in a lot of diarrhea. Pain today 06/22. Recently underwent imaging as discussed below. Objective: Lumbar MR W/Wo contrast, 03/28/2020: Posterior spinal decompression and fusion with bilateral transpedicular screws from L3-S1. Mature osseous fusion across the vertebral bodies. Hardware limits evaluation of adjacent neuroforamina. Retrolisthesis of L1 to. Mild grade 1 anterolisthesis at the fusedL4-5 level. No significant vertebral body height loss. No concerning focal osseous lesion. Mild endplate depression associated with reactive endplate changes at L1-2. Moderate loss of disc at L1-2. Mild circumferential disc bulge and left foraminal protrusion resulting mild left foraminal narrowing. No spinal canal stenosis or high-grade foraminal narrowing throughout lumbar spine. Cervical plain films AP LAT flex ex 03/07/2020: No bony destruction, no lytic/blastic lesions. Normal morphology. Mild/moderate multilevel degenerative changes consistent with spondylosis. Lumbar plain films, AP LAT flex ex, 03/07/2020: Previous lumbar fusion at L3 5 appears solid, hardware appears intact. Loss of disc height at L1-2 with grade 1 retrolisthesis which appears stable on flex ex. Mild facet arthropathy above her lumbar spine. Degenerative changes appears similar comparedto 2018. Left hip MRI W/Wo contrast, 03/06/2020: Based on overall radiographic, CT, and MR imaging appearance, the area correlating with increased uptake in the comparison bone scan most likely corresponds to fibrocystic changes/synovial herniation pits (Tyrese's pits) rather than metastasis. Partial tearing of the left gluteus medius and minimus tendons at their distal trochanteric insertion with a small amount of reactive subgluteal bursal fluid. Partial tear at the origin of the left hamstrings at the ischial tuberosity. MR abdomen W/Wo contrast, 02/19/2020: 1. Tiny subcapsular lesions in segments 2 and 8 are difficult to characterize due to small size. Lesions are indeterminant and cannot safely be characterized as hemangiomas or other benign liver lesions. Metastatic disease cannot be excluded in this patient with known sherrie metastatic disease. Consider follow-up MRI with contrast in 3 months to reassess size. 2. No signs of potential metastatic disease or lymphadenopathy within the abdomen. 3. Right renal cysts. Assessment: 59-year-old female, s/p L3-S1 fusion (2011, [facility]) and stage IV metastatic breast cancer s/p rightmastectomy (2003) with recurrence on the right (s/p resection June 2017) and more recent recurrence in January 2020 presents with bilateral leg symptoms R>L primarily involving the posterior thigh which do not appear to be radicular in nature. Pain today 06/22. Lumbar MRI w/wo contrast demonstrates no osseous lesion, spinal stenosis or high-grade foraminal narrowing. Patient would like to begin physical therapy and proceed with the plan below. Plan: 1. Begin physical therapy with progressive HEP x 6 weeks. Referral provided. 2. If minimal/no relief, recommend pain service consult for consideration of injection therapy. 3. Continue with oncology follow-up as planned. 4. Continue medications as prescribed including gabapentin. 5. AAT. Dr. Hanley was available for consultation, and he was consulted. All or part of this document has been prepared with speech recognition software and/or keyboard data entry technician techniques. Minor irregularities may be present. I spent 30 minutes with 15 minutes of my time spent face to face with the patient discussing symptoms, subjective complaints and treatment options for the problem above. documented in this encounter Plan of Treatment Upcoming Encounters Date Type Department Care Team (Late st Contact Info) Description 04/02/2024 10:30 EDT Appointment [facility] Interventional Radiology Unit [address] [place] [address] [phone] 04/02/2024 15:15 EDT Office Visit [facility] Surgical Oncology - [facility] [address] [place], [place] [phone] Adolfo Carreno MD 111 [facility], Level [address] [place] [phone] 04/05/2024 9:30 EDT Telemedicine [facility] - [facility] Palliative Care Services [address] [place], [place] [phone] Chichi Woods MD 111 [facility] [place] [address] [place] [phone] 04/11/2024 15:00 EDT Telemedicine [facility] Hematology & Oncology - [address] [phone] Alisson Carreon MD [address] [place] [address] 2 [place] [phone] 04/13/2024 13:30 EDT Appointment [facility] Hematology & Oncology - [address] [phone] 04/13/2024 14:00 EDT Appointment [facility] Hematology & Oncology - [address] [address] 04/16/2024 10:00 EST Telemedicine [facility] - [facility] Palliative Care Services [address] [place] [address] Chichi Woods MD [address] [place] [address] [phone] 04/24/2024 9:00 EST Appointment [facility] Radiology CT Outpatient - [address] 269361 04/24/2024 11:00 EST Appointment [facility] Breast Imaging - [address] 005241 04/27/2024 12:00 EST Appointment [facility] Hematology & Oncology - [address] 778191 05/02/2024 15:00 EST Telemedicine [facility] Hematology & Oncology - [address] [phone] Alisson Carreon MD [address] [place] [address], [facility] 2 [place] [phone] 05/04/2024 10:15 EST Ancillary Procedure [facility] Cardiology - [address] [place] [address] 05/04/2024 11:30 EST Appointment [facility] Hematology & Oncology - [address] [address] 05/04/2024 12:00 EST Appointment [facility] Hematology & Oncology [address] [address] 06/12/2024 13:00 EST Appointment [facility] Radiology CT - [address] [address] documented as of this encounter Visit Diagnoses Diagnosis Low back pain, unspecified back pain laterality, unspecified chronicity, unspecified whether sciatica present- Primary Pain in both thighs documented in this encounter Care Teams Sas Statistical Programmer Relationship Specialty Start Date End Date Linda Blancas MD [facility] [address] [place] [address] PCP - General 01/06/11 Adolfo Carreno MD [address] [place] [address] [phone] General Surgery 04/26/19 Augustina Colin MD PhD [address] [place] [phone] Medical Oncology 04/26/19 documented as of this encounter
--- OUTSIDE RECORDS SUMMARY | 2024-03-20 14:59 | XMS_ITS | Encounter Summary ---
Author Organization [facility] Address [address] [place] [address] Care Team Providers Care Wagon Drill Operator Name Role Phone Linda Blancas MD Primary Care Provider [phone] Adolfo Carreno MD Unavailable [phone] Augustina Colin MD PhD Unavailable Unavailable Encounter Details Date Type Department Care Team (Late st Contact Info) Description 03/10/2020 Orders Only [facility] Radiology - Main [place] [address] [place], [place] [phone] Carlos Hargrove MD [address] [place] [phone] Social History Tobacco Use Types Packs/Day Years [...] [facility] Interventional Radiology Unit [address] [place] [address] [phone] 04/02/2024 15:15 EDT Office Visit [facility] Surgical Oncology - [address] [phone] Adolfo Carreno MD 111 [facility] 2 [place] [phone] 04/05/2024 9:30 EDT Telemedicine [facility] - [facility] Palliative Care Services [address] [place], [place] [phone] Chichi Woods MD [address] [place] [phone] 04/11/2024 15:00 EDT Telemedicine [facility] Hematology & Oncology - [facility] [address] [place], [place] [phone] Alisson Carreon MD [address] [place] [address], [facility] 2 [place] [phone] 04/13/2024 13:30 EDT Appointment [facility] Hematology & Oncology - [address] [phone] 04/13/2024 14:00 EDT Appointment [facility] Hematology & Oncology [address] 168241 04/16/2024 10:00 EST Telemedicine [facility] - [facility] Palliative Care Services [address] [place] [address] 517071 Chichi Woods MD [address] [place] [address], [address] [phone] 04/24/2024 9:00 EST Appointment [facility] Radiology CT Outpatient - [address] [id number] 04/24/2024 11:00 EST Appointment [facility] Breast Imaging - [facility] [place] 1 [place], [place] 742751 04/27/2024 12:00 EST Appointment [facility] Hematology & Oncology - [address] 239661 05/02/2024 15:00 EST Telemedicine [facility] Hematology & Oncology [address] 664321 Alisson Carreon MD [address] [place] [address], [facility], Level [address] [place] [phone] 05/04/2024 10:15 EST Ancillary Procedure [facility] Cardiology - [place] [address] 05/04/2024 11:30 EST Appointment [facility] Hematology & Oncology [address] 034201 05/04/2024 12:00 EST Appointment [facility] Hematology & Oncology - [address] [phone] 06/12/2024 13:00 [facility] Radiology CT - [facility] [address] [place], [place] 720691 documented as of this encounter Visit Diagnoses Not on filedocumented in this encounter Care Teams Wagon Drill Operator Relationship Specialty Start Date End Date Linda Blancas MD [facility] [address] [place] [address] PCP - General 01/06/11 Adolfo Carreno MD [address] [place] [address] 2 [place] [phone] General Surgery 04/26/19 Augustina Colin MD PhD [address] [place] [address], [facility] 2 [place] [address] Medical Oncology 04/26/19 documented as of this encounter
--- OUTSIDE RECORDS SUMMARY | 2024-03-20 14:59 | XMS_ITS | Encounter Summary ---
Author Organization [facility] Address [address] [place] [address] Care Team Providers Care Accountant Auditor Name Role Phone Linda Blancas MD Primary Care Provider [phone] Adolfo Carreno MD Unavailable [phone] Augustina Colin MD PhD Unavailable Unavailable Reason for Visit * Reason Comments Injections Encounter Details Date Type Department Care Team (Latest Contact Info) Description 04/04/2020 14:34 EDT - 04/04/2020 23:59 EDT Hospital Encounter [facility] Hematology & Oncology - Main [place] [address] [place] [address] Malignant neoplasm of right female breast, unspecified [...] Sign Reading Time Taken Comments Blood Pressure 139/83 04/04/2020 1450 EDT Pulse 90 04/04/2020 1450 EDT Temperature 36.2 ??C (97.1 ??F) 04/04/2020 1450 EDT Respiratory Rate 16 04/04/2020 1450 EDT Oxygen Saturation 99% 04/04/2020 1450 EDT Inhaled Oxygen Concentration - - Weight 62.1 kg (137 lb) 04/04/2020 1450 EDT Height - - Body Mass Index 25.47 03/06/2020 1430 EDT documented in this encounter [...] as needed. 12/07/2023 letrozole (FEMARA) 2.5 mg tabletIndications:Persona l history of malignant neoplasm of breast,Breast lump [...] in this encounter Progress Notes * Ana Maria Stanford, RN - 04/04/2020 1500 EDT Out-patient Chemotherapy Note ?? Patient presents to clinic today for cycle #2 , day # 15 of fulvestrant treatment plan. Zometa due in June (Q6 months) per Dr. Colin' note from 01/02/2020. ?? Labs drawn today but no parameters needed for treatment. ?? Faslodex 500 mg given IM simultaneously bilateral gluteal muscles per pt preference. Bandaids applied. Pt tolerated well ?? Patient education: Patient educated on all medications administered today. Patient expressed understanding of education provided and no barriers identified ?? Patient encouraged to call clinic with any issues. ?? I was supervised by Dr. Frey who was present and immediately available in the office suite. ANA MARIA STANFORD RN 04/04/2020 documented in this encounter Miscellaneous Notes * Addendum Note - Ana Maria Stanford RN - 04/04/2020 1500 EDTEncounter addended by: Ana Maria Stanford RN on: 04/04/2020 15:48 Actions taken: Clinical Note Signed * Addendum Note - Nadeen Gonzalez - 04/04/2020 1500 EDTEncounter addended by: Nadeen Gonzlaez on: 05/15/2020 8:49 Actions taken: Charge Capture section accepted documented in this encounter Plan of Treatment Upcoming Encounters Date Type Department Care Team (Late st Contact Info) Description 04/02/2024 10:30 EDT Appointment [facility] Interventional Radiology Unit [address] [place] [address] [phone] 04/02/2024 15:15 EDT Office Visit [facility] Surgical Oncology - [facility] [address], [place] [phone] Adolfo Carreno MD [address] [place] [address], [facility], Level 2 [place] [phone] 04/05/2024 9:30 EDT Telemedicine [facility] Palliative Care Services [address], [place] [phone] Chichi Woods MD [address] [place] [address] 262 [place] [phone] 04/11/2024 15:00 EDT Telemedicine [facility] Hematology & Oncology - [address] [phone] Alisson Carreon MD [address] [place] [address] 2 [place] [phone] 04/13/2024 13:30 EDT Appointment [facility] Hematology & Oncology - [address] [phone] 04/13/2024 14:00 EDT Appointment [facility] Hematology & Oncology [address] [phone] 04/16/2024 10:00 EST Telemedicine [facility] - [facility] Palliative Care Services [address] [place] [address] [phone] Chichi Woods MD [address] [place] [phone] 04/24/2024 9:00 EST Appointment [facility] Radiology CT Outpatient - [address] [id number] 04/24/2024 11:00 EST Appointment [facility] Breast Imaging - [address] [phone] 04/27/2024 12:00 EST Appointment [facility] Hematology & Oncology - [address] [phone] 05/02/2024 15:00 EST Telemedicine [facility] Hematology & Oncology - [address] [phone] Alisson Carreon MD [address] [place] [address] [phone] 05/04/2024 10:15 EST Ancillary Procedure [facility] Cardiology - [address] [place] [address] 05/04/2024 11:30 EST Appointment [facility] Hematology & Oncology - [address] [id number] 05/04/2024 12:00 EST Appointment [facility] Hematology & Oncology - [address] [phone] 06/12/2024 13:00 EST Appointment [facility] Radiology CT - [address] [phone] documented as of this encounter Visit Diagnoses Diagnosis Malignant neoplasm of right female breast, unspecified estrogen receptor status, unspecified site of breast ([facility])- Primary documented in this encounter Administered Medications Inactive Administered Medications - up to 3 most recent administrations Medication Order MAR Action Action Date Dose Rate Site fulvestrant (FASLODEX) injection 500 mg 500 mg, intramuscular, NOW X1, 1 dose, On Tue04/04/20 at 1530, Routine Given 04/04/2020 15:22 EDT 500 mg Left Gluteus Medius/Ventrogluteal documented in this encounter Care Teams Accountant Auditor Relationship Specialty Start Date End Date Linda Blancas MD [facility] [address] [place] [address] PCP - General 01/06/11 Adolfo Carreno MD [address] [place] [phone] General Surgery 04/26/19 Augustina Colin MD PhD [address] [place] [phone] Medical Oncology 04/26/19 documented as of this encounter
--- OUTSIDE RECORDS SUMMARY | 2024-03-20 14:59 | XMS_ITS | Encounter Summary ---
Author Organization [facility] Address [address] [place] [address] Care Team Providers Care Willower Name Role Phone Linda Blancas MD Primary Care Provider [phone] Adolfo Carreno MD Unavailable [phone] Augustina Colin MD PhD Unavailable Unavailable Encounter Details Date Type Department Care Team (Late st Contact Info) Description 03/25/2020 Specialty Pharmacy [facility] Ambulatory Pharmacy - [address] [id number] [place], [facility] Social History Tobacco Use Types Packs/Day Years [...] [facility] Interventional Radiology Unit [address] [place] [address] [phone] 04/02/2024 15:15 EDT Office Visit [facility] Surgical Oncology - [address] [phone] Adolfo Carreno MD [address] [place] [address] 2 [place] [phone] 04/05/2024 9:30 EDT Telemedicine [facility] - [facility] Palliative Care Services [address] [place] [address] [phone] Chichi Woods MD [address] [place] [phone] 04/11/2024 15:00 EDT Telemedicine [facility] Hematology & Oncology [address] [phone] Alisson Carreon MD [address] [place] [address] 2 [place] [phone] 04/13/2024 13:30 EDT Appointment [facility] Hematology & Oncology [address] [phone] 04/13/2024 14:00 EDT Appointment [facility] Hematology & Oncology - [address] [address] 04/16/2024 10:00 EST Telemedicine [facility] - [facility] Palliative Care Services [address] [place], [place] 710381 Chichi Woods MD 111 [facility], [address] [phone] 04/24/2024 9:[address] [facility] Radiology CT Outpatient - [address] [address] 04/24/2024 11:00 EST Appointment [facility] Breast Imaging - [address] [address] 04/27/2024 12:00 EST Appointment [facility] Hematology & Oncology - [address] [phone] 05/02/2024 15:00 EST Telemedicine [facility] Hematology & Oncology - [address] [phone] Alisson Carreon MD [address] [place] [address], [address] [place] [phone] 05/04/2024 10:15 EST Ancillary Procedure [facility] Cardiology - [place] [place] [address] 05/04/2024 11:30 EST Appointment [facility] Hematology & Oncology - [address] [address] 05/04/2024 12:00 EST Appointment [facility] Hematology & Oncology - [address] [address] 06/12/2024 13:00 EST Appointment [facility] Radiology CT - [address] [address] documented as of this encounter Visit Diagnoses Not on filedocumented in this encounter Care Teams Willower Relationship Specialty Start Date End Date Linda Blancas MD [facility] [address] [place] [address] PCP - General 01/06/11 Adolfo Carreno MD [address] [place] [phone] General Surgery 04/26/19 Augustina Colin MD PhD [address] [place] [phone] Medical Oncology 04/26/19 documented as of this encounter
--- OUTSIDE RECORDS SUMMARY | 2024-03-20 14:59 | XMS_ITS | Encounter Summary ---
Author Organization [facility] Address [address] [place] [address] Care Team Providers Care Sprayer Insecticide Name Role Phone Linda Blancas MD Primary Care Provider Adolfo Carreno MD Unavailable [phone] Augustina Colin MD PhD Unavailable Unavailable Reason for Referral * Radiology Services (Routine) - Closed Specialty Diagnoses / Procedures Referred By Contac t Referred To Contact Radiology Diagnoses Pain in both lower extremities Procedures MR LUMBAR SPINE W WO CONTRAST Karne Holley PA-C [address] [place] [phone] Referral ID Status Reason Start Date Expiration Date Visits Re quested Visits Authorized [id number] Closed 03/18/2020 09/13/2020 1 1 * PT/OT/ST (Routine) - Specialty Report Received Specialty Diagnoses / Procedures Referred By Contac t Referred To Contact Diagnoses Pain in both lower extremities Karen Holley PA-C [address] [place] [phone] Referral ID Status Reason Start Date Expiration Date Visits Requested Visits Authorized [id number] Specialty Report Received Specialty Services Required 03/07/2020 1 1 Question Answer Reason for Request: Bilateral leg pain with paresthesias Reason for Visit * Reason Comments Follow-up Encounter Details Date Type Department Care Team (Late st Contact Info) Description 03/07/2020 10:30 EDT Office Visit [facility] Spine Program - [address] [place] [address] Karen Holley PA-C [address] [facility] [place] [phone] Pain in both lower extremities (Primary Dx); Neck pain Social History Tobacco Use Types Packs/Day Years [...] Progress Notes * Karen Holley PA-C - 03/07/2020 1030 EDT Subjective: 59-year-old female, s/p L3-S1 fusion (2011, [facility]) and stage IV breast cancer s/p right mastectomy(2003) with recurrence on the right (s/p resection June 2017) and more recent recurrence in January 2020 with metastasis to lungs here today with bilateral leg pain R>L which began about 6 months ago as she transitioned from a lot of walking to more gardening. [...] Denies fever, night sweats, unintentional weight loss. Recently underwent imaging as discussed below. Objective: Cervical plain films AP LAT flex ex [...] likely corresponds to fibrocystic changes/synovial herniation pits ([place]'s pits) rather than metastasis. Partial tearing of [...] bilateral leg symptoms R>L primarily involving the L5 dermatome which may be radicular nature secondary nerve root impingement. Lumbar MRI w/wo contrast ordered forfurther evaluation. Plan: 1. Begin physical therapy with progressive HEP. Referral provided. 2. Lumbar MRI w/wo contrast follow-up with me 1 week later. 3. Based on results, consider injection therapy/surgical consult. 4. Continue with oncology follow-up as planned. 5. Continue medications as prescribed including gabapentin. 6. AAT. Dr. Hanley was available for consultation, and he was consulted. All or part of this document has been prepared with speech recognition software and/or keyboard business database analyst techniques. Minor irregularities may be present. I spent 30 minutes with 30 minutes of my time spent face to face with the patient discussing symptoms, subjective complaints and treatment options for the problem above. documented in this encounter Plan of Treatment Upcoming Encounters Date Type Department Care Team (Late st Contact Info) Description 04/02/2024 10:30 EDT Appointment [facility] Interventional Radiology Unit [address] [place], [place] [phone] 04/02/2024 15:15 EDT Office Visit [facility] Surgical Oncology - [facility] [address] [place], [place] [phone] Adolfo Carreno MD [address] [facility], Level 2 [place] [phone] 04/05/2024 9:30 EDT Telemedicine [facility] - [facility] Palliative Care Services [address] [place], [place] 379561 Chichi Woods MD [address] [place] [address] 262 [place] [phone] 04/11/2024 15:00 EDT Telemedicine [facility] Hematology & Oncology - [address] [phone] Alisson Carreon MD [address] [place] [address], [address] [place] [phone] 04/13/2024 13:30 EDT Appointment [facility] Hematology & Oncology [address] [phone] 04/13/2024 14:00 EDT Appointment [facility] Hematology & Oncology [address] [phone] 04/16/2024 10:00 EST Telemedicine [facility] - [facility] Palliative Care Services [address] [place] [address] [phone] Chichi Woods MD [address] [place] [phone] 04/24/2024 9:00 EST Appointment [facility] Radiology CT Outpatient - [address] [id number] 04/24/2024 11:00 EST Appointment [facility] Breast Imaging - [address] [phone] 04/27/2024 12:00 EST Appointment [facility] Hematology & Oncology - [address] [phone] 05/02/2024 15:00 EST Telemedicine [facility] Hematology & Oncology - [address] [phone] Alisson Carreon MD 111 [facility], Level [address] [place] [phone] 05/04/2024 10:15 EST Ancillary Procedure [facility] Cardiology - [address] [place] [address] 05/04/2024 11:30 EST Appointment [facility] Hematology & Oncology - [address] [phone] 05/04/2024 12:00 EST Appointment [facility] Hematology & Oncology [address] [phone] 06/12/2024 13:00 EST Appointment [facility] Radiology CT - [address] [phone] Scheduled Referrals Name Type Priority Associated Diagnoses Orde r Schedule AMB CONS/FOLLOW UP PHYSICAL THERAPY Outpatient Referral Routine Pain in both lower extremities Ordered: 03/07/2020 documented as of this encounter Procedures Procedure Name Priority Date/Time Associated Diagnosis Comments XR CERVICAL SPINE 4-5 VIEWS Routine 03/07/2020 11:53 EDT Neck pain documented in this encounter Results * MR [...] disc changes and associated retrolisthesis atL1-2. Karen Holley PA-C [facility] ORDERAB LES * XR CERVICAL SPINE 4-5 VIEWS (03/07/2020 11:53 EDT) Anatomical Region Laterality Modality Left Computed Radiogr aphy 03/10/2020 14:3 5 EDT Impressions 03/10/2020 14:35 EDT Multilevel degenerative changes and slight malalignment without dynamic instability. No concerning focal osseous lesions demonstrated. Although previously seen uptake may be due to degenerative changes, metastatic lesions are often occult on radiography. If definitive exclusion of metastatic disease is needed, consider MRI. Narrative 03/10/2020 14:35 EDT CERVICAL SPINE, 4 VIEWS HISTORY: History of breast cancer; uptake in the cervical spine. TECHNIQUE: AP, lateral, flexion, extension views of the cervical spine. COMPARISON: Bone scan 01/18/2020. FINDINGS: Slight rightward curvature of the lower cervical and upper thoracic spine. Slight reversal of lordosis centered at C5. There is minimal stepwise anterolisthesis from C2 to C5 and minimal retrolisthesis of C5 on C6. The alignment is otherwise maintained and does not change significantly between flexion and extension. The vertebral body heights are normal. No concerning focal lesions demonstrated. Multilevel discogenic degenerative changes are present with intervertebral disc height loss and bony proliferative changes, most pronounced at C4-C5 and C5-C6. Mild to moderate multilevel facet arthropathy and multilevel uncovertebral hypertrophy noted. Included extraspinal soft tissues are unremarkable. Procedure Note Heath Diana MD - 03/10/2020 CERVICAL SPINE, 4 VIEWS HISTORY: History of breast cancer; uptake in the cervical spine. TECHNIQUE: AP, lateral, flexion, extension views of the cervical spine. COMPARISON: Bone scan 01/18/2020. FINDINGS: Slight rightward curvature of the lower cervical and upper thoracic spine.Slight reversal of lordosis centered at C5. There is minimal stepwiseanterolisthesis from C2 to C5 and minimal retrolisthesis of C5 on C6. Thealignment is otherwise maintained and does not change significantlybetween flexion and extension. The vertebral body heights are normal. No concerning focal lesionsdemonstrated. Multilevel discogenic degenerative changes are present with intervertebraldisc height loss and bony proliferative changes, most pronounced at C4-C5and C5-C6. Mild to moderate multilevel facet arthropathy and multileveluncovertebral hypertrophy noted. Included extraspinal soft tissues are unremarkable. IMPRESSION Multilevel degenerative changes and slight malalignment without dynamicinstability. No concerning focal osseous lesions demonstrated. Although previously seenuptake may be due to degenerative changes, metastatic lesions are oftenoccult on radiography. If definitive exclusion of metastatic disease isneeded, consider MRI. Karen [facility] ORDER[facility]LES documented in this encounter Visit Diagnoses Diagnosis Pain in both lower extremities- Primary Neck pain Cervicalgia Pain in both lower extremities documented in this encounter Care Teams Sprayer Insecticide Relationship Specialty Start Date End Date Linda Blancas MD [facility] [address] [place] [address] PCP - General 01/06/11 Adolfo Carreno MD [address] [place] [phone] General Surgery 04/26/19 Augustina Colin MD PhD [address] [place], [place] [address], [place] [phone] Medical Oncology 04/26/19 documented as of this encounter
--- OUTSIDE RECORDS SUMMARY | 2024-03-20 14:59 | XMS_ITS | Encounter Summary ---
Author Organization [facility] Address [address] [place] [address] Care Team Providers Care Automotive Finance Manager Name Role Phone Linda Blancas MD Primary Care Provider [phone] Adolfo Carreno MD Unavailable [phone] Augustina Colin MD PhD Unavailable Unavailable Encounter Details Date Type Department Care Team (Latest Contact Info) Description 03/07/2020 10:30 EDT - 03/07/2020 11:35 EDT [address] Encounter [address] [facility] [address] [place], [place] [phone] Low back pain, unspecified back pain laterality, unspecified chronicity, unspecified whether sciatica present Discharge Disposition: Home or Self Care Social [facility] [address] [place] [address] 04/02/2024 15:15 EDT Office Visit [facility] Surgical Oncology - [facility] [address] [place] [address] Adolfo Carreno MD 111 [facility], Level 2 [place] [address] 04/05/2024 9:30 EDT Telemedicine [facility] Palliative Care Services [address] [place] [address] Chichi Woods MD 111 [facility], [address] [phone] 04/11/2024 15:00 EDT Telemedicine [facility] Hematology & Oncology - [address] [phone] Alisson Carreon MD [address] [place] [address] 2 [place] [phone] 04/13/2024 13:30 EDT Appointment [facility] Hematology & Oncology - [address] [phone] 04/13/2024 14:00 EDT Appointment [facility] Hematology & Oncology [address] [id number] 04/16/2024 10:00 EST Telemedicine [facility] - [facility] Palliative Care Services [address] [place] [address] 359691 Chichi Woods MD [address] [place] [address], [place] [address] [place] [phone] 04/24/2024 9:00 EST Appointment [facility] Radiology CT Outpatient - [address] [id number] 04/24/2024 11:00 EST Appointment [facility] Breast Imaging - [address] [id number] 04/27/2024 12:00 EST Appointment [facility] Hematology & Oncology - [address] [phone] 05/02/2024 15:00 EST Telemedicine [facility] Hematology & Oncology - [address] 747211 Alisson Carreon MD [address] [place] [address], [facility] 2 [place] [address] 05/04/2024 10:15 EST Ancillary Procedure [facility] Cardiology - [address] [place] [address] 05/04/2024 11:30 EST Appointment [facility] Hematology & Oncology [address] [address] 05/04/2024 12:00 EST Appointment [facility] Hematology & Oncology [address] [address] 06/12/2024 13:00 EST Appointment [facility] Radiology CT [address] 782201 documented as of this encounter Procedures Procedure Name Priority Date/Time Associated Diagnosis Comments XR LUMBAR SPINE 4+ VIEWS Routine 03/07/2020 10:50 EDT Low back pain, unspecified back pain laterality, unspecified chronicity, unspecified whether sciatica present documented in this encounter Results * XR LUMBAR SPINE 4 OR MORE VIEWS (03/07/2020 10:50 EDT) Anatomical Region Laterality Modality Computed Radiogr aphy 03/13/2020 8:52 EDT Impressions 03/13/2020 8:52 EDT 1. ??Retrolisthesis of L1 on L2 and L2 on L3 without evidence of dynamic instability. Severe degenerative changes at the L1-L2 level. 2. ??Expected postsurgical changes from posterior spinal fusion across the L3-S1 levels. Narrative 03/13/2020 8:52 EDT XR LUMBAR SPINE 4 OR MORE VIEWS03/07/2020 10:30 AM SIGNS & SYMPTOMS / COMMENTS: Low back pain COMPARISON: CT abdomen/pelvis from 01/18/2020. Lumbar spine radiographs from 03/09/2018. TECHNIQUE: Upright AP as well as lateral radiographs of the lumbar spine in flexion, extension, and neutral positions was obtained. FINDINGS: There are 5 nonrib-bearing lumbar type vertebra. There are expected postsurgical changes from posterior spinal fusion extending across the L3-S1 levels with evidence of mature osseous fusion. There is retrolisthesis of L1 on L2 and L2 on L3 which does not significantly change with flexion or extension. Loss of disc place with endplate sclerosis and osteophytosis is noted at the L1-L2 level. There is persistent anterolisthesis of L3 on L4 which is unchanged compared to prior studies. Calcification projecting over the pelvis is likely a uterine fibroid. Procedure Note Cassia Madrigal MD - 03/13/2020 XR LUMBAR SPINE 4 OR MORE VIEWS03/07/2020 10:30 AM SIGNS & SYMPTOMS / COMMENTS: Low back pain COMPARISON: CT abdomen/pelvis from 01/18/2020. Lumbar spine radiographs from03/09/2018. TECHNIQUE: Upright AP as well as lateral radiographs of the lumbar spinein flexion, extension, and neutral positions was obtained. FINDINGS: There are 5 nonrib-bearing lumbar type vertebra. There are expectedpostsurgical changes from posterior spinal fusion extending across theL3-S1 levels with evidence of mature osseous fusion. There isretrolisthesis of L1 on L2 and L2 on L3 which does not significantlychange with flexion or extension. Loss of disc place with endplatesclerosis and osteophytosis is noted at the L1-L2 level. There ispersistent anterolisthesis of L3 on L4 which is unchanged compared toprior studies. Calcification projecting over the pelvis is likely auterine fibroid. IMPRESSION 1. Retrolisthesis of L1 on L2 and L2 on L3 without evidence of dynamicinstability. Severe degenerative changes at the L1-L2 level. 2. Expected postsurgical changes from posterior spinal fusion across theL3-S1 levels. Karen Holley PA-C [facility] ORDERABLES documented in this encounter Visit Diagnoses Diagnosis Low back pain, unspecified back pain laterality, unspecified chronicity, unspecified whether sciatica present documented in this encounter Care Teams Automotive Finance Manager Relationship Specialty Start Date End Date Linda Blancas MD [address] [place] [address] 30 [place], [place] [id number] PCP - General 01/06/11 Adolfo Carreno MD [address] [place] [address], Level 2 [place] [address] General Surgery 04/26/19 Augustina Colin MD PhD [address] [place] [address], [facility] 2 [place] [address] Medical Oncology 04/26/19 documented as of this encounter
--- OUTSIDE RECORDS SUMMARY | 2024-03-20 14:59 | XMS_ITS | Encounter Summary ---
Author Organization [facility] Address [address] [place] [address] Care Team Providers Care Brass Instrument Repair Technician Name Role Phone Linda Blancas MD Primary Care Provider [phone] Adolfo Carreno MD Unavailable [phone] Augustina Colin MD PhD Unavailable Unavailable Encounter Details Date Type Department Care Team (Latest Contact Info) Description 03/07/2020 11:36 EDT - 03/07/2020 23:59 EDT Hospital Encounter [address] [place], [place] [phone] Discharge Disposition: Home or Self Care Social [...] Appointment [facility] Interventional Radiology Unit [address] [place] [address] [phone] 04/02/2024 15:15 EDT Office Visit [facility] Surgical Oncology - [address] [phone] Adolfo Carreno MD 111 [facility], Level 2 [place] [phone] 04/05/2024 9:30 EDT Telemedicine [facility] Palliative Care Services [address] [place], [place] 404751 Chichi Woods MD [address] [facility], [address] [phone] 04/11/2024 15:00 EDT Telemedicine [facility] Hematology & Oncology - [address] [phone] Alisson Carreon MD [address] [place] [address], [facility] 2 [place] [phone] 04/13/2024 13:30 EDT Appointment [facility] Hematology & Oncology - [address] 759301 04/13/2024 14:00 EDT Appointment [facility] Hematology & Oncology [address] [phone] 04/16/2024 10:00 EST Telemedicine [facility] - [facility] Palliative Care Services [address] [place] [address] Chichi Woods MD [address] [place] [address], [address] [phone] 04/24/2024 9:00 EST [facility] Rad[facility] Outpatient - [address] [id number] 04/24/2024 11:00 EST Appointment [facility] Breast Imaging - [address] [id number] 04/27/2024 12:00 EST Appointment [facility] Hematology & Oncology - [address] 063631 05/02/2024 15:00 EST Telemedicine [facility] Hematology & Oncology - [address] 713521 Alisson Carreon MD [address] [place] [address], [facility] 2 [place] [phone] 05/04/2024 10:15 EST Ancillary Procedure [facility] Cardiology - [address] [place] [address] 05/04/2024 11:30 EST Appointment [facility] Hematology & Oncology [address] [phone] 05/04/2024 12:00 EST Appointment [facility] Hematology & Oncology [address] 329081 06/12/2024 13:00 EST [facility]ment [facility] Rad[facility] CT - [address] [phone] documented as of this encounter Procedures Procedure Name Priority Date/Time Associated Diagnosis Comments XR CERVICAL SPINE 4-5 VIEWS Routine 03/07/2020 11:53 EDT Neck pain documented in this encounter Results * XR CERVICAL SPINE 4-5 VIEWS (03/07/2020 [...] of metastatic disease isneeded, consider MRI. Karen Holley PA-C [facility] DIAGNOSTIC IMAGING ORDERABLES documented in this encounter Visit Diagnoses Not on filedocumented in this encounter Care Teams Brass Instrument Repair Technician Relationship Specialty Start Date End Date Linda Blancas MD [facility] [address] [place] [address] PCP - General 01/06/11 Adolfo Carreno MD [address] [place] [phone] General Surgery 04/26/19 Augustina Colin MD PhD [address] [place] [phone] Medical Oncology 04/26/19 documented as of this encounter
--- OUTSIDE RECORDS SUMMARY | 2024-03-20 14:59 | XMS_ITS | Encounter Summary ---
Author Organization [facility] Address [address] [place] [address] Care Team Providers Care Save All Operator Name Role Phone Linda Blancas MD Primary Care Provider Adolfo Carreno MD Unavailable [phone] Augustina Colin MD PhD Unavailable Unavailable Encounter Details Date Type Department Care Team (Latest Contact Info) Description 03/19/2020 13:17 EDT - 03/19/2020 23:59 EDT Hospital Encounter [facility] Hematology & Oncology - Main [place] [address] [place], [place] [phone] Malignant neoplasm of right female breast, unspecified [...] documented in this encounter Progress Notes * Danita Farooq, SHELLEY - 03/19/2020 1600 EDT Out-patient Chemotherapy Note Patient presents to clinic today for cycle # 1 , day # 15 of fluvestrant treatment plan. Labs drawn today but no parameters IM given in bilateral gluteal muscles per protocol. bandaids applied. Pt tolerated well Patient education: Patient educated on all medications administered today. Patient expressed understanding of education provided and no barriers identified Patient encouraged to call clinic with any issues. I was supervised by who was present and immediately available in the office suite. DANITA FAROOQ RN documented in this encounter Miscellaneous Notes * Addendum Note - Nadeen Gonzalez - 03/19/2020 1600 EDTEncounter addended by: Nadeen Gonzalez on: 05/15/2020 8:48 Actions taken: Charge Capture section accepted documented in this encounter Plan of Treatment Upcoming Encounters Date Type Department Care Team (Late st Contact Info) Description 04/02/2024 10:30 EDT Appointment [facility] Interventional Radiology Unit [address] [place] [address] [phone] 04/02/2024 15:15 EDT Office Visit [facility] Surgical Oncology - [address] [phone] Adolfo Carreno MD [address] [place] [address] 2 [place] [phone] 04/05/2024 9:30 EDT Telemedicine [facility] Palliative Care Services [address] [place] [address] 067901 Chichi Woods MD [address] [place] [phone] 04/11/2024 15:00 EDT Telemedicine [facility] Hematology & Oncology [address] [phone] Alisson Carreon MD [address] [place] [phone] 04/13/2024 13:30 EDT Appointment [facility] Hematology & Oncology [address] 901461 04/13/2024 14:00 EDT Appointment [facility] Hematology & Oncology [address] [phone] 04/16/2024 10:00 EST Telemedicine [facility] Palliative Care Services [address] [place] [address] 956241 Chichi Woods MD [address] [place] [address], [place] [address] [place] [phone] 04/24/2024 9:00 EST Appointment [facility] Radiology CT Outpatient - [address] 943171 04/24/2024 11:00 EST Appointment [facility] Breast Imaging - [facility] 1 [place], [place] 568881 04/27/2024 12:00 EST Appointment [facility] Hematology & Oncology [address] [id number] 05/02/2024 15:00 EST Telemedicine [facility] Hematology & Oncology [address] 291901 Alisson Carreon MD [address] [place] [address], [facility], Level [address] [place] [phone] 05/04/2024 10:15 EST Ancillary Procedure [facility] Cardiology - [address] [place] [address] 05/04/2024 11:30 EST Appointment [facility] Hematology & Oncology - [address] [phone] 05/04/2024 12:00 EST Appointment [facility] Hematology & Oncology - [address] [phone] 06/12/2024 13:00 EST Appointment [facility] Radiology CT - [address] [phone] documented as of this encounter Visit Diagnoses Diagnosis Malignant neoplasm of right female breast, unspecified estrogen receptor status, unspecified site of breast (HCC-CMS)- Primary documented in this encounter Administered Medications Inactive Administered Medications - up to 3 most recent administrations Medication Order MAR Action Action Date Dose Rate Site fulvestrant (FASLODEX) injection 500 mg 500 mg, intramuscular, NOW X1, 1 dose, On Tue03/19/20 at 1345, Routine Given 03/19/2020 14:09 EDT 500 mg Left Gluteus Medius/Ventrogluteal documented in this encounter Care Teams Save All Operator Relationship Specialty Start Date End Date Linda Blancas MD [facility] [address] [place] [address] PCP - General 01/06/11 Adolfo Carreno MD [address] [place] [address], [facility] 2 [place] [phone] General Surgery 04/26/19 Augustina Colin MD PhD [address] [place] [address], [facility] 2 [place] [address] Medical Oncology 04/26/19 documented as of this encounter
--- OUTSIDE RECORDS SUMMARY | 2024-03-20 14:59 | XMS_ITS | Encounter Summary ---
Author Organization [facility] Address [address] [place] [address] Care Team Providers Care Community Services Coordinator Name Role Phone Linda Blancas MD Primary Care Provider [phone] Adolfo Carreno MD Unavailable Augustina Colin MD PhD Unavailable Unavailable Encounter Details Date Type Department Care Team (Latest Contact Info) Description 03/19/2020 Travel Social History Tobacco Use Types Packs/Day [...] [facility] Interventional Radiology Unit [address] [place] [address] [phone] 04/02/2024 15:15 EDT Office Visit [facility] Surgical Oncology - [address] [phone] Adolfo Carreno MD [address] [place] [address] 2 [place] [phone] 04/05/2024 9:30 EDT Telemedicine [facility] - [facility] Palliative Care Services [address] [place] [address] [phone] Chichi Woods MD [address] [place] [phone] 04/11/2024 15:00 EDT Telemedicine [facility] Hematology & Oncology [address] 097241 Alisson Carreon MD [address] [place] [phone] 04/13/2024 13:30 EDT Appointment [facility] Hematology & Oncology [address] [phone] 04/13/2024 14:00 EDT Appointment [facility] Hematology & Oncology [address] 351361 04/16/2024 10:00 EST Telemedicine [facility] - [facility] Palliative Care Services [address] [place] [address] 438121 Chichi Woods MD [address] [place] [address], [address] [phone] 04/24/2024 9:00 EST Appointment [facility] Radiology CT Outpatient - [address] [id number] 04/24/2024 11:00 EST Appointment [facility] Breast Imaging - [facility] S [place] 1 [place], [place] 284191 04/27/2024 12:00 EST Appointment [facility] Hematology & Oncology - [address] 147361 05/02/2024 15:00 EST Telemedicine [facility] Hematology & Oncology - [address] 423291 Alisson Carreon MD [address] [place] [address], Level [address] [place] [phone] 05/04/2024 10:15 EST Ancillary Procedure [facility] Cardiology - [place] [address] 05/04/2024 11:30 EST Appointment [facility] Hematology & Oncology - [address] 130641 05/04/2024 12:00 EST Appointment [facility] Hematology & Oncology [address] [phone] 06/12/2024 13:00 EST Appointment [facility] Radiology CT - [address] 939171 documented as of this encounter Visit Diagnoses Not on filedocumented in this encounter Care Teams Community Services Coordinator Relationship Specialty Start Date End Date Linda Blancas MD [facility] [address] [place] [address] PCP - General 01/06/11 Adolfo Carreno MD [address] [place] [address] 2 [place] [phone] General Surgery 04/26/19 Augustina Colin MD PhD [address] [place] [address], [facility] 2 [place] [address] Medical Oncology 04/26/19 documented as of this encounter
--- OUTSIDE RECORDS SUMMARY | 2024-03-20 15:00 | XMS_ITS | Encounter Summary ---
Author Organization [facility] Address [address] [place] [address] Care Team Providers Care Community Organization Aide Name Role Phone Linda Blancas MD Primary Care Provider [phone] Adolfo Carreno MD Unavailable [phone] Augustina Colin MD PhD Unavailable Unavailable Reason for Visit * Reason Onset Date Comments Appointment Related 01/29/2020 Encounter Details Date Type Department Care Team (Late st Contact Info) Description 01/29/2020 Telephone [facility] Hematology & Oncology - Main [place] [address] [place], [place] [phone] Augustina Colin, PhD Appointment Related Social History [...] have Coronavirus / COVID-19? No / Unsure 01/28/2020 15:03 EDT documented as of this encounter Functional [...] * Telephone Encounter - Nilson Arciniega - 01/29/2020 1428 EDT Spoke with pt about new appt 02/19 @330 via zoom left PAC# documented in this encounter Plan of Treatment Upcoming Encounters Date Type Department Care Team (Late st Contact Info) Description 04/02/2024 10:30 EDT Appointment [facility] Interventional Radiology Unit [address] [place], [place] 421891 04/02/2024 15:15 EDT Office Visit [facility] Surgical Oncology - [address] [phone] Adolfo Carreno MD 111 [facility], [facility] 2 [place] [phone] 04/05/2024 9:30 EDT Telemedicine [facility] - [facility] Palliative Care Services [address] [place], [place] 512731 Chichi Woods MD [address] [phone] 04/11/2024 15:00 EDT Telemedicine [facility] Hematology & Oncology - [facility] [address] [place], [place] 457361 Alisson Carreon MD [address] [place] [address], Level [address] [place] [phone] 04/13/2024 13:30 EDT Appointment [facility] Hematology & Oncology - [address] 078861 04/13/2024 14:00 EDT Appointment [facility] Hematology & Oncology - [address] 915771 04/16/2024 10:00 EST Telemedicine [facility] - [facility] Palliative Care Services [address] [place] [address] [phone] Chichi Woods MD [address] [place] [address], [address] [phone] 04/24/2024 9:00 EST Appointment [facility] Radiology CT Outpatient - [address] 679491 04/24/2024 11:00 EST Appointment [facility] Breast Imaging - [facility] S [address] [phone] 04/27/2024 12:00 EST Appointment [facility] Hematology & Oncology - [address] [phone] 05/02/2024 15:00 EST Telemedicine [facility] Hematology & Oncology - [address] [phone] Alisson Carreon MD [address] [place] [address], Level [address] [place] [phone] 05/04/2024 10:15 EST Ancillary Procedure [facility] Cardiology - [address] [place], [place] [phone] 05/04/2024 11:30 EST Appointment [facility] Hematology & Oncology - [address] [address] 05/04/2024 12:00 EST Appointment [facility] Hematology & Oncology - [address] [address] 06/12/2024 13:00 EST Appointment [facility] Radiology CT - [address] [phone] documented as of this encounter Visit Diagnoses Not on filedocumented in this encounter Care Teams Community Organization Aide Relationship Specialty Start Date End Date Linad Blancas MD [facility] [address] [place] [address] PCP - General 01/06/11 Adolfo Carreno MD [address] [place] [address] 2 [place] [phone] General Surgery 04/26/19 Augustina Colin MD PhD [address] [place] [address] 2 [place] [address] Medical Oncology 04/26/19 documented as of this encounter
--- OUTSIDE RECORDS SUMMARY | 2024-03-20 15:00 | XMS_ITS | Encounter Summary ---
Author Organization [facility] Address [address] [place] [address] Care Team Providers Care Outreach Clinician Name Role Phone Linda Blancas MD Primary Care Provider [phone] Adolfo Carreno MD Unavailable [phone] Augustina Colin MD PhD Unavailable Unavailable Reason for Visit * Reason Onset Date Comments Prior Auth, Medication 02/21/2020 Abemacicl ib (Verzenio) Encounter Details Date Type Department Care Team (Late st Contact Info) Description 02/21/2020 Telephone [facility] Hematology & Oncology - [facility] [address] [place] [address] Augustina Colin MD PhD Prior Auth, Medication (Abemaciclib (Verzenio)) Social History Tobacco Use Types Packs/Day Years [...] Telephone Encounter - Quita Rob RN - 02/22/2020 1448 EDT Prescription for abemaciclib has been pended to Dr Colin for signature. * Telephone Encounter - Zulma Garcia - 02/21/2020 1022 EDT Prior Authorization Approval Medication: Verzenio (Abemaciclib) 150mg tabs Approved: 01/23/2020 - 02/21/2023 Authorization Number: [id number] Benefits Information or Other Notes: Pharmacy: [facility] Prior Authorization Submission Process Medication: Abemaciclib Insurance: [place] Date [place] Request Received: 02/21/2020 PA Submission Date: 02/21/2020 [facility] Fer[facility]: faxed Submitted by: Zulma documented in this encounter Plan of Treatment Upcoming Encounters Date Type Department Care Team (Late st Contact Info) Description 04/02/2024 10:30 EDT Appointment [facility] Interventional Radiology Unit [address] [place] [address] [phone] 04/02/2024 15:15 EDT Office Visit [facility] Surgical Oncology - Main [address] [phone] Adolfo Carreno MD [address] [place] [address] 2 [place] [phone] 04/05/2024 9:[address] [facility] Palliative Care Services [address] [place] [address] [phone] Chichi Woods MD [address] [place] [address] [phone] 04/11/2024 15:00 EDT Telemedicine [facility] Hematology & Oncology - [address] [phone] Alisson Carreon MD [address] [place] [address] 2 [place] [phone] 04/13/2024 13:30 EDT Appointment [facility] Hematology & Oncology - [address] [phone] 04/13/2024 14:00 EDT Appointment [facility] Hematology & Oncology - [address] [phone] 04/16/2024 10:00 EST Telemedicine [facility] Palliative Care Services [address] [place] [address] [phone] Chichi Woods MD [address] [place] [phone] 04/24/2024 9:00 EST Appointment [facility] Radiology CT Outpatient - [address] [id number] 04/24/2024 11:00 EST Appointment [facility] Breast Imaging - [address] 719301 04/27/2024 12:00 EST Appointment [facility] Hematology & Oncology [address] [address] 05/02/2024 15:00 EST Telemedicine [facility] Hematology & Oncology [address] [address] Alisson Carreon MD [address] [place] [address], Level [address] [place] [phone] 05/04/2024 10:15 EST Ancillary Procedure [facility] Cardiology - [address] [place] [address] 05/04/2024 11:30 EST Appointment [facility] Hematology & Oncology [address] [phone] 05/04/2024 12:00 EST Appointment [facility] Hematology & Oncology [address] [address] 06/12/2024 13:00 EST Appointment [facility] Radiology CT - [address] [phone] documented as of this encounter Visit Diagnoses Diagnosis Metastatic breast cancer- Primary documented in this encounter Additional Health Concerns Infection Onset Date Last Indicated Resolved Time R/O COVID-19 12/12/2023 12/12/2023 12/12/2023 15:3 5 EDT R/O COVID-19 01/08/2024 01/08/2024 01/08/2024 18:2 6 EDT R/O COVID-19 01/16/2024 01/16/2024 01/16/2024 17:5 0 EDT documented as of this encounter Care Teams Outreach Clinician Relationship Specialty Start Date End Date Linda Blancas MD [facility] [address] [place] [address] PCP - General 01/06/11 dAolfo Carreno MD [address] [place] [address] 2 [place] [phone] General Surgery 04/26/19 Augustina Colin MD PhD [address] [place] [address] 2 [place] [phone] Medical Oncology 04/26/19 documented as of this encounter
--- OUTSIDE RECORDS SUMMARY | 2024-03-20 15:00 | XMS_ITS | Encounter Summary ---
Author Organization [facility] Address [address] [place] [address] Care Team Providers Care Family Day Carer Name Role Phone Linda Blancas MD Primary Care Provider [phone] Adolfo Carreno MD Unavailable [phone] Augustina Colin MD PhD Unavailable Unavailable Reason for Referral * Radiology Services (Routine) - Closed Specialty Diagnoses / Procedures Referred By Contac t Referred To Contact Nuclear Medicine Diagnoses Metastatic breast cancer Procedures NM BONE WHOLE BODY NM BONE SCAN 3 PHASE Augustina Colin MD PhD Referral ID Status Reason Start Date Expiration Date Visits Re quested Visits Authorized [id number] Closed 01/02/2020 1 1 Reason for Visit * Radiology Services (Routine) - Closed Specialty Diagnoses / Procedures Referred By Contac t Referred To Contact Nuclear Medicine Diagnoses Metastatic breast cancer Procedures NM BONE WHOLE BODY NM BONE SCAN 3 PHASE Augustina Colin MD PhD Referral ID Status Reason Start Date Expiration Date Visits Re quested Visits Authorized [id number] Closed 01/02/2020 1 1 Encounter Details Date Type Department Care Team (Latest Contact Info) Description 01/18/2020 10:28 EDT - 01/18/2020 10:29 EDT Hospital Encounter [facility] Radiology Nuclear Medicine and PET - [address] [address] Metastatic breast cancer (HCC-CMS) Discharge Disposition: Home or Self Care [...] have Coronavirus / COVID-19? No / Unsure 01/18/2020 10:28 EDT documented as of this encounter [...] Contact Info) Description 04/02/2024 10:30 EDT Appointment [facility] Interventional Radiology Unit [address] [place] [address] [phone] 04/02/2024 15:15 EDT Office Visit [facility] Surgical Oncology - Main [address] [phone] Adolfo Carreno MD [address] [place] [address] 2 [place] [phone] 04/05/2024 9:30 EDT Telemedicine [facility] Palliative Care Services [address] [place] [address] [phone] Chichi Woods MD [address] [place] [phone] 04/11/2024 15:00 EDT Telemedicine [facility] Hematology & Oncology - [address] [phone] Alisson Carreon MD [address] [place] [address] 2 [place] [phone] 04/13/2024 13:30 EDT Appointment [facility] Hematology & Oncology - [address] [phone] 04/13/2024 14:00 EDT Appointment [facility] Hematology & Oncology - [address] [phone] 04/16/2024 10:00 EST Telemedicine [facility] Palliative Care Services [address] [place] [address] [phone] Chichi Woods MD [address] [place] [address] [phone] 04/24/2024 9:00 EST Appointment [facility] Radiology CT Outpatient - [address] [phone] 04/24/2024 11:00 EST Appointment [facility] Breast Imaging - [address] [address] 04/27/2024 12:00 EST Appointment [facility] Hematology & Oncology [address] [phone] 05/02/2024 15:00 EST Telemedicine [facility] Hematology & Oncology [address] [phone] Alisson Carreon MD [address] [place] [address], Level 2 [place] [phone] 05/04/2024 10:15 EST Ancillary Procedure [facility] Cardiology [place] [place] [address] 05/04/2024 11:30 EST Appointment [facility] Hematology & Oncology [address] [phone] 05/04/2024 12:00 EST Appointment [facility] Hematology & Oncology [address] 164261 06/12/2024 13:00 EST Appointment [facility] Radiology CT [address] [phone] documented as of this encounter Procedures Procedure Name Priority Date/Time Associated Diagnosis Comments NM BONE WHOLE BODY Routine 01/18/2020 14 :43 EDT Metastatic breast cancer (HCC-CMS) documented in this encounter Results * NM BONE WHOLE BODY (01/18/2020 14:43 EDT) Anatomical Region Laterality Modality Body Nuclear Medicine 01/18/2020 16:5 1 EDT Impressions 01/18/2020 16:51 EDT Increased radiotracer uptake in the left elbow, mid cervical spine likely posttraumatic and arthrosis related respectively. However these findings are more pronounced on the prior examination. Radiographic correlation is advised. New focal increased uptake involving the left femoral neck, which may represent new or growing intraosseous geode Pit's pit. However metastases are not entirely excluded. MRI of the left hip with contrast would be needed to confidently assess. Severe degenerative spondylosis in the upper lumbar spine above the fused lumbar segment. Narrative 01/18/2020 16:51 EDT Technique: 18.5 mCi of technetium 99m MDP was administered intravenously. Whole body images were obtained approximately 2 hours later. COMPARISON: CT of the chest and abdomen performed today. Whole body bone scan 03/10/2019. FINDINGS: Patient is status post posterior lumbosacral fusion. Increased radiotracer uptake is again seen corresponding to a severe degenerative arthrosis in the upper lumbar spine. Increased radiotracer uptake in the cervical spine is again seen most likely related to facet arthrosis. However area on the mid cervical spine on the right is more pronounced than on the prior exam. Focal area of increased uptake is identified in the left elbow, more pronounced than on the prior exam.. Patient was injected in the right antecubital fossa. Focal area of radiotracer uptake is also identified in the left femoral neck corresponding to subcortical lesion at the femoral head neck junction. Increased radiotracer uptake in the upper thoracic spine correspond to degenerative changes seen on the CT. Increased radiotracer uptake in the right great toe MTP joint most likely is related to arthrosis. Procedure Note Sonny Georges MD - 01/18/2020 Technique: 18.5 mCi of technetium 99m MDP was administered intravenously.Whole body images were obtained approximately 2 hours later. COMPARISON: CT of the chest and abdomen performed today. Whole body bonescan 03/10/2019. FINDINGS: Patient is status post posterior lumbosacral fusion. Increased radiotraceruptake is again seen corresponding to a severe degenerative arthrosis inthe upper lumbar spine. Increased radiotracer uptake in the cervical spineis again seen most likely related to facet arthrosis. However area on themid cervical spine on the right is more pronounced than on the prior exam.Focal area of increased uptake is identified in the left elbow, morepronounced than on the prior exam.. Patient was injected in the rightantecubital fossa. Focal area of radiotracer uptake is also identified in the left femoralneck corresponding to subcortical lesion at the femoral head neckjunction. Increased radiotracer uptake in the upper thoracic spine correspond todegenerative changes seen on the CT. Increased radiotracer uptake in theright great toe MTP joint most likely is related to arthrosis. IMPRESSION Increased radiotracer uptake in the left elbow, mid cervical spine likelyposttraumatic and arthrosis related respectively. However these findingsare more pronounced on the prior examination. Radiographic correlation isadvised. New focal increased uptake involving the left femoral neck, which mayrepresent new or growing intraosseous geode Pit's pit. Howevermetastases are not entirely excluded. MRI of the left hip with contrastwould be needed to confidently assess. Severe degenerative spondylosis in the upper lumbar spine above the fusedlumbar segment. Augustina Colin MD PhD IMG NM ORDERABLES documented in this encounter Visit Diagnoses Diagnosis Metastatic breast cancer documented in this encounter Administered Medications Inactive Administered Medications - up to 3 most recent administrations Medication Order MAR Action Action Date Dose Rate Site technetium (Tc-99m) methylene diphosphonate (MDP) injection 18 millicurie 18 millicurie, intravenous, NOW X1, 1 dose, On Tue01/18/20 at 1200, Routine, Imaging Protocol Orders Given 01/18/2020 10:45 EDT 18.5 millicuries IV documented in this encounter Care Teams Family Day Carer Relationship Specialty Start Date End Date Linda Blancas MD [address] [place] [address] PCP - General 01/06/11 Adolfo Carreno MD [address] [place] [phone] General Surgery 04/26/19 Augustina Colin MD PhD [address] [place] [address], [facility] 2 [place] [phone] Medical Oncology 04/26/19 documented as of this encounter
--- OUTSIDE RECORDS SUMMARY | 2024-03-20 15:00 | XMS_ITS | Encounter Summary ---
Author Organization [facility] Address [address] [place] [address] Care Team Providers Care Technology Director Name Role Phone Linda Blancas MD Primary Care Provider [phone] Adolfo Carreno MD Unavailable [phone] Augustina Colin MD PhD Unavailable Unavailable Reason for Visit * Reason Onset Date Comments Neck Mass 01/28/2020 Encounter Details Date Type Department Care Team (Late st Contact Info) Description 01/28/2020 Orders Only [facility] Surgical Oncology - [address] [phone] Adolfo Carreno MD [address] [place] [address], Level [address] [place] [phone] Enlarged lymph node in neck (Primary Dx) Social History Tobacco Use Types [...] [facility] Interventional Radiology Unit [address] [place] [address] [phone] 04/02/2024 15:15 EDT Office Visit [facility] Surgical Oncology - [address] [phone] Adolfo Carreno MD [address] [place] [phone] 04/05/2024 9:30 EDT Telemedicine [facility] - [facility] Palliative Care Services [address] [place] [address] [phone] Chichi Woods MD [address] [place] [address], [address] [phone] 04/11/2024 15:00 EDT Telemedicine [facility] Hematology & Oncology [address] 184831 Alisson Carreon MD [address] [place] [phone] 04/13/2024 13:30 EDT Appointment [facility] Hematology & Oncology - [address] [phone] 04/13/2024 14:00 EDT Appointment [facility] Hematology & Oncology [address] [phone] 04/16/2024 10:00 EST Telemedicine [facility] - [facility] Palliative Care Services [address] [place] [address] [phone] Chichi Woods MD [address] [place] [address], [address] [phone] 04/24/2024 9:00 EST Appointment [facility] Radiology CT Outpatient - [address] 193061 04/24/2024 11:00 EST Appointment [facility] Breast Imaging - [facility] [address] [place], [place] 261341 04/27/2024 12:00 EST Appointment [facility] Hematology & Oncology [address] [phone] 05/02/2024 15:00 EST Telemedicine [facility] Hematology & Oncology - [address] 163931 Alisson Carreon MD [address] [place] [address], [facility] [address] [place] [phone] 05/04/2024 10:15 EST Ancillary Procedure [facility] Cardiology [place] [place] [address] 05/04/2024 11:30 EST Appointment [facility] Hematology & Oncology [address] 790853 [phone] 05/04/2024 12:00 EST Appointment [facility] Hematology & Oncology - [facility] [address] [place] [address] 06/12/2024 13:00 EST Appointment [facility] Radiology CT - [facility] [address] [place] [address] documented as of this encounter Procedures Procedure Name Priority Date/Time Associated Diagnosis Comments NON WOOD MILLING MACHINE HAND/FNA CYTOLOGY Routine 01/28/2020 16:25 EDT Enlarged lymph node in neck documented in this encounter Results * NON WOOD MILLING MACHINE HAND/FNA CYTOLOGY (01/28/2020 16:25 EDT) Final Diagnosis LYMPH NODE, LEFT NECK, ULTRASOUND-GUID ED FINE NEEDLE ASPIRATION: Adenocarcinoma, metastatic, consistent with breast primary. 02/08/2020 9:16 [facility] Diagnosis Comment The malignant cells are similar to those seen in the prior right paratracheal fine needle aspiration ([id number]). 02/08/2020 9:16 [facility] Attestation By the signature below, the attending physician certifies that they have personally conducted a gross and/or microscopic examination of the described specimens and rendered or confirmed the above diagnosis. 02/08/2020 9:16 [facility] at 0916 Clinical History left neck lymph node enlargement H/o breast cancer 02/08/2020 9:16 [facility] Gross Description A. 3 fixed prepared slides, 1 air dried prepared slide, and 1 tube of CytoLyt were received and processed by selective cellular enhancement technique. 02/08/2020 9:16 [facility] Performing Lab [facility] 02/08/2020 9:16 [facility] Scanned Images 02/08/2020 9:16 [facility] Fine Needle Aspirate ENTIRE LYMPH NODE / Unknown 01/28/2020 16:25 EDT 01/28/2020 16:26 EDT Adolfo Carreno MD PATHOLOGY ORDERABLES [facility] [address] [place] [address] documented in this encounter Visit Diagnoses Diagnosis Enlarged lymph node in neck- Primary documented in this encounter Care Teams Technology Director Relationship Specialty Start Date End Date Linda Blancas MD [facility] [address] [place] [address] PCP - General 01/06/11 Adolfo Carreno MD [address] [phone] General Surgery 04/26/19 Augustina Colin MD PhD [address] [place] [address] 2 [place] [address] Medical Oncology 04/26/19 documented as of this encounter
--- OUTSIDE RECORDS SUMMARY | 2024-03-20 15:00 | XMS_ITS | Encounter Summary ---
Author Organization [facility] Address [address] [place] [address] Care Team Providers Care Tar Heat Exchanger Cleaner Name Role Phone Linda Blancas MD Primary Care Provider [phone] Adolfo Carreno MD Unavailable [phone] Augustina Colin MD PhD Unavailable Unavailable Reason for Visit * Reason Comments Telemedicine Video Visit Encounter Details Date Type Department Care Team (Late st Contact Info) Description 02/20/2020 15:30 EDT Telemedicine [facility] Hematology & Oncology - Main [place] [address], [place] [id number] Augustina Colni MD PhD Metastatic breast cancer (HCC-CMS) (Primary [...] Progress Notes * Augustina Colin MD - 02/20/2020 1530 EDT REASON FOR OFFICE VISIT: Discussion of imaging results ?? The concept of ???Telemedicine?? has [...] or mental health care. She is joined on this tele-video con sultation with her today. PROBLEM LIST: 1. 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 a. ??Ultrasound performed in [place]??identifying an irregular heterogeneous soft tissue mass measuring [...] breast tumor 07/07/17 and placement of tissue plant science professor. ??1.9 cm tumor at time of surgery, well differentiated, with LVI present, and negative margins. ?? G. Biopsy left cervical LN 02/11/20 - consistent with metastatic adenocarcinoma consistent with breast primary 2. ??Restaging scans: ??CT scan of the [...] are indeterminant. Metastatic disease cannot be excluded Nnuclear bone scan??01/18/20: New focal increased uptake involving the left femoral neck, which may represent new or growing intraosseous geode ; metastases are not entirely excluded. MRI of the left hip - Pending 3. ??DCIS in 2003 at the age [...] near osteopenia hips A.?Zoledronic acid initiated May 2019 7. ??Other chronic health issues: ??gastroesophageal reflux disease. ?? SUBJECTIVE: ??Ms Eldridge is receiving a televideo consultation today to discuss MRI results. She was relieved that the MRI did not show any definitive evidence of cancer in the liver. She is also not surprised that we are recommending a change in therapy and she is comfortable with that. She has been having back pain and will follow-up with her orthopedic surgeon for that. The nuclear bone scan did indicate some increase in spondylolithiasis ROS: A 10 point review of systems was obtained. Other than described in the subjective she notes noother concerns or issues. Medications Prior to Today's [...] FORMULA ORAL) Take by mouth daily. ??? mv-mn/C/glutamin/lysin/uefs369 (AIR[place]ORNE, ASCORBATE SODIUM, ORAL) Take by mouth [...] - 3 Glasses of wine per week She continues to be active. Objective: There were no vitals taken for this visit. Estimated body mass index is 25.21 kg/m?? as calculated from the following: Height as of 01/02/20: 156.2 cm (61.5). Weight as of 01/02/20: 61.5 kg (135 lb 9.6 oz). ECOG Performance Status: 0 General: Comfortable, cooperative and in no apparent distress NEURO: Alert and oriented x 3; Grossly neurologically intact ?? ASSESSMENT: ??Ms Bernstein is a 59-year-old female with metastatic breast cancer.?? The largestarea of disease on the ??lateral aspect of the breast was removed at the time of implant removal.?She took the palbociclib for about a year but has continued on letrozole. ??Her tumor marker has recently increased. Restaging scans indicated enlargement of a left cervical lymph node. Dr. Carreno biopsied it and results were consistent with metastatic breast cancer. At this point this is the only definitive area of disease. Restaging scans indicated up possible metastatic site in the liver based on CT scans. Follow-up MRI was not definitive as the areas were very small. Nuclear bone scan suggested a possible metastatic site in the left hip and recommended an left hip MRI. We will obtain that left hip MRI in the next several weeks. Given that there does appear to be progression though limited progression we will change therapy. We will proceed with Faslodex and this will be combined with abemaciclib. She will receive her first dose of Faslodex when she comes for her MRI. She will continue letrozole until then. We discussed the side effects of both. Faslodex can be associated with hot flashes. We will check liver function tests while she receives Faslodex. Abemaciclib can suppress counts though bone marrow suppression is not as severe with abemaciclib as it is with palbociclib. Abemaciclib can be associated with diarrhea. ?? PLAN: 1. Left hip MRI 2. Faslodex will be initiated when she comes for her MRI. 3. Initiate abemaciclib after Faslodex is started 4. Would continue zoledronic acid every 6 months for now. If the MRI suggests bone metastasis we would switch this to denosumab and provided at least every 3 months. 5..?Continued follow-up with Dr. Carreno 6. ??Follow-up return approximately 1month??when she is due for Faslodex. ? Patient is encouraged call with any intercurrent concerns or problems. TELEMEDICINE VIDEO VISIT Today's visit was provided through telemedicine video conferencing: I have reviewed the appropriateness of using video technology with the patient with regards to today's visit. The location of the patient : Home The location of the provider: Office The following staff and their role did participate in today's encounter visit: MD Augustina Laguna MD 02/18/2020 15:22 documented in this encounter Plan of Treatment Upcoming Encounters Date Type Department Care Team (Late st Contact Info) Description 04/02/2024 10:30 EDT Appointment [facility] Interventional Radiology Unit [address], [place] [phone] 04/02/2024 15:15 EDT Office Visit [facility] Surgical Oncology - [facility] [address], [place] [address] Adolfo Carreno MD [address] [facility] [place] [facility], Level [address] [place] [phone] 04/05/2024 9:30 EDT Telemedicine [facility] - [facility] Palliative [facility] Services [address] [place] [address] [phone] Chichi Woods MD [address] [place] [address] [phone] 04/11/2024 15:00 EDT Telemedicine [facility] Hematology & Oncology - [address] [phone] Alisson Carreon MD [address] [place] [address] [address] [place] [phone] 04/13/2024 13:30 EDT Appointment [facility] Hematology & Oncology - [address] [address] 04/13/2024 14:00 EDT Appointment [facility] Hematology & Oncology - [address] [address] 04/16/2024 10:00 EST Telemedicine [facility] Palliative Care Services [address] [place] [address] [phone] Chichi Woods MD [address] [place] [address] [phone] 04/24/2024 9:00 EST Appointment [facility] Radiology CT Outpatient - [address] [id number] 04/24/2024 11:00 EST Appointment [facility] Breast Imaging - [address] [phone] 04/27/2024 12:00 EST Appointment [facility] Hematology & Oncology - [address] [phone] 05/02/2024 15:00 EST Telemedicine [facility] Hematology & Oncology [address] [address] Alisson Carreon MD [address] [place] [address] [phone] 05/04/2024 10:15 EST Ancillary Procedure [facility] Cardiology - [place] [address] [place] [address] 05/04/2024 11:30 EST Appointment [facility] Hematology & Oncology [address] [address] 05/04/2024 12:00 EST Appointment [facility] Hematology & Oncology [address] [phone] 06/12/2024 13:00 EST Appointment [facility] Radiology CT - [address] [id number] documented as of this encounter Visit Diagnoses Diagnosis Metastatic breast cancer- Primary documented in this encounter Care Teams Tar Heat Exchanger Cleaner Relationship Specialty Start Date End Date Linda Blancas MD [address] [place] [id number] PCP - General 01/06/11 Adolfo Carreno MD [address] [place] [address] [phone] General Surgery 04/26/19 Augustina Colin MD PhD [address] [place] [phone] Medical Oncology 04/26/19 documented as of this encounter
--- OUTSIDE RECORDS SUMMARY | 2024-03-20 15:00 | XMS_ITS | Encounter Summary ---
Author Organization [facility] Address [address] [place] [address] Care Team Providers Care Rehab Aide Name Role Phone Linda Blancas MD Primary Care Provider [phone] Adolfo Carreno MD Unavailable [phone] Augustina Colin MD PhD Unavailable Unavailable Encounter Details Date Type Department Care Team (Latest Contact Info) Description 01/28/2020 Travel Social History Tobacco Use Types Packs/Day [...] Appointment [facility] Interventional Radiology Unit [address] [place] [address] [phone] 04/02/2024 15:15 EDT Office Visit [facility] Surgical Oncology - [address] [phone] Adolfo Carreno MD [address] [place] [address] [address] [place] [phone] 04/05/2024 9:30 EDT Telemedicine [facility] - [facility] Palliative Care Services [address] [place] [address] [phone] Chichi Woods MD [address] [place] [address] [phone] 04/11/2024 15:00 EDT Telemedicine [facility] Hematology & Oncology [address] [phone] Alisson Carreon MD [address] [place] [address] [phone] 04/13/2024 13:30 EDT Appointment [facility] Hematology & Oncology [address] [phone] 04/13/2024 14:00 EDT Appointment [facility] Hematology & Oncology [address] [phone] 04/16/2024 10:00 EST Telemedicine [facility] - [facility] Palliative Care Services [address] [place] [address] [phone] Chichi Woods MD [address] [place] [address], [address] [phone] 04/24/2024 9:00 EST Appointment [facility] Radiology CT Outpatient - [address] [id number] 04/24/2024 11:00 EST Appointment [facility] Breast Imaging - [facility] [address] [place] [address] [place], [place] 5[address] 04/27/2024 12:00 EST Appointment [facility] Hematology & Oncology - [address] [phone] 05/02/2024 15:00 EST Telemedicine [facility] Hematology & Oncology - [address] [phone] Alisson Carreon MD [address] [place] [address], [address] [place] [phone] 05/04/2024 10:15 EST Ancillary Procedure [facility] Cardiology [place] [place] [address] 05/04/2024 11:30 EST Appointment [facility] Hematology & Oncology - [address] [phone] 05/04/2024 12:00 EST Appointment [facility] Hematology & Oncology [address] [phone] 06/12/2024 13:00 EST Appointment [facility] Radiology CT - [address] [phone] documented as of this encounter Visit Diagnoses Not on filedocumented in this encounter Care Teams Rehab Aide Relationship Specialty Start Date End Date Linda Blancas MD [facility] [address] [place] [address] PCP - General 01/06/11 Adolfo Carreno MD [address] [place] [address] [address] [place] [phone] General Surgery 04/26/19 Augustina Colin MD PhD [address] [place] [address], [facility] [address] [place] [phone] Medical Oncology 04/26/19 documented as of this encounter
--- OUTSIDE RECORDS SUMMARY | 2024-03-20 15:00 | XMS_ITS | Encounter Summary ---
Author Organization [facility] Address [address] [place] [address] Care Team Providers Care Patient Assessment Coordinator Name Role Phone Linda Blancas MD Primary Care Provider [phone] Adolfo Carreno MD Unavailable [phone] Augustina Colin MD PhD Unavailable Unavailable Reason for Referral * Laboratory Services (Routine) - Order Cancelled Specialty Diagnoses / Procedures Referred By Contac t Referred To Contact Diagnoses Metastatic breast cancer Procedures CA 27.29 Augustina Colin MD PhD Referral ID Status Reason Start Date Expiration Date V isits Requested Visits Authorized [id number] Order Cancelled 03/13/2019 1 1 * Laboratory Services (Routine) - Order Cancelled Specialty Diagnoses / Procedures Referred By Contac t Referred To Contact Diagnoses Metastatic breast cancer Procedures COMPLETE BLOOD COUNT AND DIFFERENTIAL Augustina Colin MD PhD Referral ID Status Reason Start Date Expiration Date V isits Requested Visits Authorized [id number] Order Cancelled 03/13/2019 1 1 Reason for Visit * Reason Comments Injections * Laboratory Services (Routine) - Order Cancelled Specialty Diagnoses / Procedures Referred By Contac t Referred To Contact Diagnoses Metastatic breast cancer Procedures COMPLETE BLOOD COUNT AND DIFFERENTIAL Augustina Colin MD PhD Referral ID Status Reason Start Date Expiration Date V isits Requested Visits Authorized [id number] Order Cancelled 03/13/2019 1 1 Encounter Details Date Type Department Care Team (Latest Contact Info) Description 03/06/2020 14:21 EDT - 03/06/2020 23:59 EDT Hospital Encounter [facility] Hematology & [place] [address] Malignant neoplasm of right female breast, unspecified estrogen receptor status, unspecified site of breast (HCC-CMS) (Primary Dx); Metastatic breast cancer (HCC-CMS) Discharge Disposition: Home [...] 8:26 EDT documented as of this encounter Last Filed Vital Signs Vital Sign Reading Time Taken Comments Blood Pressure 137/87 03/06/2020 1430 EDT Pulse 93 03/06/2020 1430 EDT Temperature 36.2 ??C (97.2 ??F) 03/06/2020 1430 EDT Respiratory Rate 15 03/06/2020 1430 EDT Oxygen Saturation 98% 03/06/2020 1430 EDT Inhaled Oxygen Concentration - - Weight 61.2 kg (135 lb) 03/06/2020 1430 EDT Height 156.2 cm (5' 1.5) 03/06/2020 1430 EDT Body Mass Index 25.1 03/06/2020 1430 EDT documented in this encounter [...] documented in this encounter Progress Notes * Doug Dubois RN - 03/06/2020 1430 EDT Pt presents to clinic today for Cycle 1 Day 1 Faslodex. Educated patient todeay regarding Faslodex ( side effects and when to contact office ). Handout provided and reviewed. Pt did not know that she needed baseline labs collected today prior to starting day 1 treatment. CBC/d and CMP/onc was collected today in shortstay via peripheral venipuncture. Site covered with dressing. Faslodex injections ( 500mg) 250mg injections x2 each given IM bilateral gluteal muscles. Sites each covered with band aids. Pt tolerated injections well . Pt encouraged to contact office with any questions or concerns. I was supervised by Dr Kirk who was present and immediately available in the office suite. DOUG DUBOIS RN 03/06/2020 14:59 documented in this encounter Miscellaneous Notes * Addendum Note - Mirian Houston - 03/06/2020 1430 EDTEncounter addended by: Mirian Houston on: 03/15/2020 10:34 Actions taken: Charge Capture section accepted documented in this encounter Plan of Treatment Upcoming Encounters Date Type Department Care Team (Late st Contact Info) Description 04/02/2024 10:30 EDT Appoint[address] [facility] Interventional Radiology Unit [address] [place] [address] [phone] 04/02/2024 15:15 EDT Office Visit [facility] Surgical Oncology - [address] [id number] Adolfo Carreno MD [address] [place] [phone] 04/05/2024 9:30 EDT Telemedicine [facility] Palliative [facility] Services [address] [place] [address] [phone] Chichi Woods MD [address] [place] [address] [phone] 04/11/2024 15:00 EDT Telemedicine [facility] Hematology & Oncology - [address] [phone] Alisson Carreon MD [address] [place] [address] [phone] 04/13/2024 13:30 EDT Appointment [facility] Hematology & Oncology [address] [phone] 04/13/2024 14:00 EDT Appointment [facility] Hematology & Oncology [address] [phone] 04/16/2024 10:00 EST Telemedicine [facility] Palliative Care Services [address] [place] [address] [phone] Chichi Woods MD [address] [place] [address] [phone] 04/24/2024 9:00 EST Appointment [facility] Radiology CT Outpatient - [address] [id number] 04/24/2024 11:00 EST Appointment [facility] Breast Imaging - [facility] [address] [place] [address] [place], [place] 0[address] 04/27/2024 12:00 EST Appointment [facility] Hematology & Oncology - [address] [phone] 05/02/2024 15:00 EST Telemedicine [facility] Hematology & Oncology - [address] [phone] Alisson Carreon MD [address] [place] [address], [address] [place] [phone] 05/04/2024 10:15 EST Ancillary Procedure [facility] Cardiology - [address] [place] [address] 05/04/2024 11:30 EST Appointment [facility] Hematology & Oncology - [address] [address] 05/04/2024 12:00 EST Appointment [facility] Hematology & Oncology - [address] [phone] 06/12/2024 13:00 EST Appointment [facility] Radiology CT - [address] [id number] documented as of this encounter Procedures Procedure Name Priority Date/Time Associated Diagnosis Comments COMPREHENSIVE METABOLIC PANEL (ONCOLOGY USE ONLY-INC MG) STAT 03/06/2020 14:27 EDT Metastatic breast cancer (HCC-CMS) CA 27.29 Routine 03/06/2020 14:27 EDT Metastatic breast cancer (HCC-CMS) COMPLETE BLOOD COUNT AND DIFFERENTIAL Routine 03/06/2020 14:27 EDT Metastatic breast cancer (HCC-CMS) documented in this encounter Results * COMPREHENSIVE METABOLIC PANEL (ONCOLOGY USE ONLY-INC MG) (03/06/2020 14:27 EDT) Sodium 141 136 - 145 mEq/L 03/06/2020 15:11 [facility] Potassium 4.8 3.5 - 5.0 mEq/L 03/06/2020 15:11 [facility] Chloride 106 96 - 110 mEq/L 03/06/2020 15:11 [facility] CO2 Total 26 22 - 32 mEq/L 03/06/2020 15:11 [facility] Glucose 94 70 - 100 mg/dL 03/06/2020 15:11 [facility] BUN 20 10 - 26 mg/dL 03/06/2020 15:11 [facility] Creatinine 0.62 0.52 - 1.04 mg/dL 03/06/2020 15:11 [facility] eGFR 100 >60 mL/min/1.7 3m2 03/06/2020 15:11 [facility] Comment:eGFR calculated gordo ureña CKD-EPI equation for non- Americans. Multiply eGFR by 1.16 for patients. Total Protein 7.1 6.3 - 8.2 g/dL 03/06/2020 15:11 [facility] Albumin 4.4 3.4 - 4.9 g/dL 03/06/2020 15:11 [facility] Alkaline Phosphatase 70 38 - 126 U/L 03/06/2020 15:11 [facility] AST 33 15 - 46 U/L 03/06/2020 15:11 [facility] ALT 25 <35 U/L 03/06/2020 15:11 [facility] Bilirubin, Total <0.5 <1.4 mg/dL 03/06/20 20 15:11 [facility] Calcium 9.7 8.5 - 10.5 mg/dL 03/06/2020 15:11 [facility] Calculated Calcium 9.4 8.5 - 10.5 mg/dL 03/06/2020 15:11 EDT [facility] Magnesium 2.2 1.7 - 2.8 mg/dL 03/06/2020 15:11 EDT [facility] Blood VENOUS BLOOD / Unknown Venipuncture / Unknown 03/06/2020 14:27 EDT 03/06/2020 14:53 EDT Vanessa Rollins APPLICATION CONSULTANT CHEMISTRY & BLOOD MI S ORDERABLES Performing Organization Address [facility] de Phone Number [facility] [address] [place] [address] * (ABNORMAL) CA 27.29 (03/06/2020 14:27 EDT) CA 27.29 61.1(H) <38.0 U/mL 03/07/2020 8:39 EDT [facility] Comment: NOTE: Serum CA 27.29 concentration should not be interpreted as absolute evidence for the presence or absence of malignant disease. Assayed on Siemens [employer] Memopalaur XPT using chemiluminescent technology. ??Values obtained by using different assay methods cannot be used interchangeably. Blood VENOUS BLOOD / Unknown Venipuncture / Unknown 03/06/2020 14:27 EDT 03/06/2020 14:53 EDT Augustina Colin MD PhD CHEMISTRY & BLOOD MI S ORDERABLES Performing Organization Address [facility] de Phone Number [facility] [address] [place] [address] * COMPLETE BLOOD COUNT AND DIFFERENTIAL (03/06/2020 14:27 EDT) WBC 7.58 4.00 - 12.40 K/cmm 03/06/2020 15:09 EDT [facility] RBC 4.28 3.86 - 5.04 M/cmm 03/06/2020 15:09 EDT [facility] Hemoglobin 14.1 11.6 - 15.2 gm/dL 03/06/2020 15:09 EDT [facility] HCT 41.5 34.9 - 44.4 % 03/06/2020 15:09 [facility] MCV 97 81 - 98 fl 03/06/2020 15:09 [facility] MCH 32.9 26.7 - 33.3 pg 03/06/2020 15:09 [facility] MCHC 34.0 32.1 - 35.9 gm/dL 03/06/2020 15:09 [facility] RDW-CV 12.0 <14.7 % 03/06/2020 15:09 [facility] RDW-SD 42.5 <50.4 fl 03/06/2020 15:09 [facility] PLT 282 141 - 377 K/cmm 03/06/2020 15:09 [facility] MPV 9.9 9.5 - 12.7 fl 03/06/2020 15:09 [facility] % Neutrophils 59.9 % 03/06/2020 15:09 [facility] % Lymphocytes 30.2 % 03/06/2020 15:09 [facility] % Monocytes 7.3 % 03/06/2020 15:09 [facility] % Eosinophils 1.6 % 03/06/2020 15:09 [facility] % Basophils 0.7 % 03/06/2020 15:09 [facility] % Immature Grans 0.3 % 03/06/20 20 15:09 [facility] Absolute Neutrophils 4.55 2.20 - 8.85 K/cmm 03/06/2020 15:09 [facility] Absolute Lymphocytes 2.29 1.09 - 3.30 K/cmm 03/06/2020 15:09 [facility] Absolute Monocytes 0.55 0.10 - 0.80 K/cmm 03/06/2020 15:09 [facility] Absolute Eosinophils 0.12 0.03 - 0.61 K/cmm 03/06/2020 15:09 [facility] ABS Basophils 0.05 0.01 - 0.11 K/cmm 03/06/2020 15:09 [facility] Absolute Immature Grans 0.02 0.00 - 0.06 K/cmm 03/06/2020 15:09 EDT [facility] Type of Differential: Auto 03/06/2020 15:09 EDT [facility] Blood VENOUS BLOOD / Unknown Venipuncture / Unknown 03/06/2020 14:27 EDT 03/06/2020 14:53 EDT Augustina Colin MD PhD PACKAGES & DNA PROBE ORDERABLES [facility] [address] [place] [address] documented in this encounter Visit Diagnoses Diagnosis [...] intramuscular, NOW X1, 1 dose, On Michelle 03/06/20 at 1445, Routine Given 03/06/2020 14:49 EDT 500 mg Left Gluteus Medius/Ventrogluteal documented in this encounter Care Teams Patient Assessment Coordinator Relationship Specialty Start Date End Date Linda Blancas MD [facility] [address] [place] [address] PCP - General 01/06/11 Adolfo Carreno MD [address] [place] [phone] General Surgery 04/26/19 Augustina Colin MD PhD [address] [place] [phone] Medical Oncology 04/26/19 documented as of this encounter
--- OUTSIDE RECORDS SUMMARY | 2024-03-20 15:00 | XMS_ITS | Encounter Summary ---
Author Organization [facility] Address [address] [place] [address] Care Team Providers Care Health And Safety Consultant Name Role Phone Linda Blancas MD Primary Care Provider Adolfo Carreno MD Unavailable [phone] Augustina Colin MD PhD Unavailable Unavailable Encounter Details Date Type Department Care Team (Late st Contact Info) Description 02/21/2020 Orders Only [facility] Radiology - Main [place] [address] [place], [place] [address] Don France DO [address] [facility], [place], [facility] [address] [place] [phone] Social History Tobacco Use Types [...] Appointment [facility] Interventional Radiology Unit [address] [place] [address] [phone] 04/02/2024 15:15 EDT Office Visit [facility] Surgical Oncology - [address] [phone] Adolfo Carreno MD [address] [place] [address] [address] [place] [phone] 04/05/2024 9:30 EDT Telemedicine [facility] - [facility] Palliative Care Services [address] [place], [place] [phone] Chichi Woods MD [address] [place] [address], [address] [phone] 04/11/2024 15:00 EDT Telemedicine [facility] Hematology & Oncology - [address] [phone] Alisson Carreon MD [address] [place] [address] 2 [place] [phone] 04/13/2024 13:30 EDT Appointment [facility] Hematology & Oncology - [address] [phone] 04/13/2024 14:00 EDT Appointment [facility] Hematology & Oncology [address] [address] 04/16/2024 10:00 EST Telemedicine [facility] - [facility]iative [facility] [address] [place] [address] [phone] Chichi Woods MD [address] [place] [phone] 04/24/2024 9:00 EST Appointment [facility] Radiology CT Outpatient - [address] [phone] 04/24/2024 11:00 EST Appointment [facility] Breast Imaging - [facility] [address] [phone] 04/27/2024 12:00 EST Appointment [facility] Hematology & Oncology - [address] [phone] 05/02/2024 15:00 EST Telemedicine [facility] Hematology & Oncology [address] [phone] Alisson Carreon MD [address] [place] [address], [facility], [address] [place] [phone] 05/04/2024 10:15 EST Ancillary Procedure [facility] Cardiology - [place] [address] 05/04/2024 11:30 EST Appointment [facility] Hematology & Oncology - [address] [phone] 05/04/2024 12:00 EST Appointment [facility] Hematology & Oncology - [address] [address] 06/12/2024 13:00 [facility] [place] [facility] Radiology CT - [address] [phone] documented as of this encounter Visit Diagnoses Not on filedocumented in this encounter Care Teams Health And Safety Consultant Relationship Specialty Start Date End Date Linda Blancas MD [facility] [address] [place], [place] 368[address] PCP - General 01/06/11 Adolfo Carreno MD [address] [place] [address] 2 [place] [phone] General Surgery 04/26/19 Augustina Colin MD PhD [address] [place] [address] 2 [place] [phone] Medical Oncology 04/26/19 documented as of this encounter
--- OUTSIDE RECORDS SUMMARY | 2024-03-20 15:00 | XMS_ITS | Encounter Summary ---
Author Organization [facility] Address [address] [place] [address] Care Team Providers Care Medical Billing Instructor Name Role Phone Linda Blancas MD Primary Care Provider [phone] Adolfo Carreno MD Unavailable [phone] Augustina Colin MD PhD Unavailable Unavailable Reason for Visit * Reason Comments Follow-up Encounter Details Date Type Department Care Team (Late st Contact Info) Description 01/28/2020 15:20 EDT Office Visit [facility] Surgical Oncology - [address] [phone] Adolfo Carreno MD [address] [place] [address], [facility] 2 [place] [address] Routine cancer follow-up visit (Primary Dx); Personal history of breast cancer; Cervical lymphadenopathy Social History Tobacco Use Types Packs/Day Years [...] 15:03 EDT documented as of this encounter Last Filed Vital Signs Vital Sign Reading Time Taken Comments Blood Pressure - - Pulse - - Temperature 36.6 ??C (97.9 ??F) 01/28/2020 1514 EDT Respiratory Rate - - Oxygen Saturation [...] Progress Notes * Adolfo Carreno MD - 01/28/2020 1520 EDT This office note has been dictated. * Adolfo Carreno MD - 01/28/2020 1503 EDT [facility] BREAST CANCER PROGRAM PROGRESS / FOLLOWUP NOTE - 01/28/2020 SUBJECTIVE: The patient is seen in followup for a history of breast cancer. 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 She had a focally positive margin. No additional radiation or other treatments were given. The patient developed a recurrence of invasive disease in that breast in 2017. 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 The patient was treated with endocrine therapy getting letrozole, palbociclib and had a good response. She underwent resection of the residual tumor inthe mastectomy site with implant reconstruction. Stage of the disease was T1c, it was a well-differentiated invasive ductal cancer. The patient continues on letrozole and Zometa. Overall, she has been feeling quite well, has no complaints. OBJECTIVE: On clinical exam, the patient is well appearing without scleral icterus. Neck exam reveals no palpable cervical or supraclavicular lymph nodes. There are no palpable nodules in the thyroidgland, no carotid bruits or JVD are noted. Lungs are clear to auscultation. Heart has a regular rate and rhythm, no S3, S4, murmurs are noted. Breast exam reveals a mastectomy on the right with implant. On the left side, the patient has had a mastopexy and implant on that side. No other skin changes are noted. Palpation of the right side reveals no palpable abnormality suspicious for recurrence. There are no palpable lymph nodes in the axilla. The left side has no palpable abnormality suspicious for recurrence. There are no palpable lymph nodes in the axilla. There are no abdominal masses, nohepato or splenomegaly was noted. DIAGNOSTIC DATA: Ultrasound of the right mastectomy site shows the implant in good position. There is no evidence of recurrent disease. There are no abnormal lymph nodes in the internal mammary or axillary region. Left side, the patient has no suspicious architectural changes, solid or cystic abnormalities. The implant was in good position. There are no abnormal lymph nodes in the internal mammary or axillary region; however, in the left neck, there was a large lymph node just above the clavicle measuring 1.7 cm in maximum size, according to her recent CT scan that had increased in size. It was therefore recommended that we FNA that to see if this is metastatic disease. The patient agreed. Under sterile technique, 1% lidocaine was used as a local anesthetic. Using a 27-gauge needle, thiswas advanced by ultrasound guidance into the nodule. Multiple aspirates were obtained. Those were plated on slides which were fixed in alcohol or air dried. The syringes were rinsed out in CytoLyt solution. She tolerated that without any problem. A sterile dressing was placed. PLAN: The plan is to notify her of the results of the biopsy of that when it becomes available. Theplan will be otherwise to have the patient return for followup again in 6 months. Adolfo Carreno MD / SA Dictation ID: [id number] cc: Augustina Colin MD, [facility] - Hematology Oncology, [address] [place] [id number] Linda Blancas MD, [facility], [address] [place] [address] [id number] Tylor Boss MD, [facility] - Plastic Surgery, [address], [address], [place] [address] documented in this encounter Plan of Treatment Upcoming Encounters Date Type Department Care Team (Late st Contact Info) Description 04/02/2024 10:30 EDT Appointment [facility] Interventional Radiology Unit [address] [place] [address] [phone] 04/02/2024 15:15 EDT Office Visit [facility] Surgical Oncology - [address] [phone] Adolfo Carreno MD [address] [place] [address] 2 [place] [phone] 04/05/2024 9:30 EDT Telemedicine [facility] Palliative Care Services [address] [place] [address] [phone] Chichi Woods MD [address] [place] [address], [address] [phone] 04/11/2024 15:00 EDT Telemedicine [facility] Hematology & Oncology - [address] [phone] Alisson Carreon MD [address] [place] [address] 2 [place] [phone] 04/13/2024 13:30 EDT Appointment [facility] Hematology & Oncology - [address] [address] 04/13/2024 14:00 EDT Appointment [facility] Hematology & Oncology [address] [phone] 04/16/2024 10:00 EST Telemedicine [facility] - [facility] Palliative Care Services [address] [place] [address] [phone] Chichi Woods MD [address] [place] [address], [address] [phone] 04/24/2024 9:00 EST Appointment [facility] Radiology CT Outpatient - [address] [id number] 04/24/2024 11:00 EST Appointment [facility] Breast Imaging - [facility] S [address] 277191 04/27/2024 12:00 EST Appointment [facility] Hematology & Oncology - [address] [phone] 05/02/2024 15:00 EST Telemedicine [facility] Hematology & Oncology [address] [phone] Alisson Carreon MD [address] [place] [address], [facility], Level [address] [place] [phone] 05/04/2024 10:15 EST Ancillary Procedure [facility] Cardiology - [place] [address] 05/04/2024 11:30 EST Appointment [facility] Hematology & Oncology [address] 107861 05/04/2024 12:00 EST Appointment [facility] Hematology & Oncology - [address] [id number] 06/12/2024 13:00 [facility] Radiology CT - [facility] [address] [place], [place] [phone] documented as of this encounter Procedures Procedure Name Priority Date/Time Associated Diagnosis Comments ORDERS - SCANNED 02/04/2020 10:18 EDT documented in this encounter Results * ORDERS - SCANNED (02/04/2020 10:18 EDT) 02/04/2020 10:1 8 EDT Scan 2 [employer] ADMISSION ORDERABLE S documented in this encounter Visit Diagnoses Diagnosis Routine cancer follow-up visit- Primary Other follow-up examination Personal history of breast cancer Personal history of malignant neoplasm of breast Cervical lymphadenopathy Enlargement of lymph nodes documented in this encounter Care Teams Medical Billing Instructor Relationship Specialty Start Date End Date Linda Blancas MD [facility] [address] [place] [address] PCP - General 01/06/11 Adolfo Carreno MD [address] [place] [phone] General Surgery 04/26/19 Augustina Colin MD PhD [address] [place] [address] 2 [place] [address] Medical Oncology 04/26/19 documented as of this encounter
--- OUTSIDE RECORDS SUMMARY | 2024-03-20 15:00 | XMS_ITS | Encounter Summary ---
Author Organization [facility] Address [address] [place] [address] Care Team Providers Care Drum Barker Operator Name Role Phone Linda Blancas MD Primary Care Provider [phone] Adolfo Carreno MD Unavailable [phone] Augustina Colin MD PhD Unavailable Unavailable Reason for Visit * Reason Onset Date Comments Appointment Related 02/21/2020 Encounter Details Date Type Department Care Team (Late st Contact Info) Description 02/21/2020 Telephone [facility] Hematology & Oncology - [place] [address] [place], [place] [phone] Augustina Colin, PhD Appointment Related Social History [...] * Telephone Encounter - Nilson Arciniega - 02/21/2020 1434 EDT Spoke with pt about mri on 03/06 check in @1015 3rd floor reg inj same day @230 transferred her to do safety form left PAC# documented in this encounter Plan of Treatment Upcoming Encounters Date Type Department Care Team (Late st Contact Info) Description 04/02/2024 10:30 EDT Appointment [facility] Interventional Radiology Unit [address] [place], [place] 163851 04/02/2024 15:15 EDT Office Visit [facility] Surgical Oncology - [address] [phone] Adolfo Carreno MD 111 [facility], Level 2 [place] [phone] 04/05/2024 9:30 EDT Telemedicine [facility] - [facility] Palliative Care Services [address] [place], [place] [phone] Chichi Woods MD 111 [facility], [address] [phone] 04/11/2024 15:00 EDT Telemedicine [facility] Hematology & Oncology - [facility] [address] [place], [place] [phone] Alisson Carreon MD [address] [place] [address], [facility] 2 [place] [phone] 04/13/2024 13:30 EDT Appointment [facility] Hematology & Oncology - [address] [phone] 04/13/2024 14:00 EDT Appointment [facility] Hematology & Oncology - [address] [phone] 04/16/2024 10:00 EST Telemedicine [facility] - [facility] Palliative Care Services [address] [place] [address] [phone] Chichi Woods MD [address] [place] [address], [address] [phone] 04/24/2024 9:00 EST Appointment [facility] Radiology CT Outpatient - [address] [id number] 04/24/2024 11:00 EST Appointment [facility] Breast Imaging - [facility] S [address] [id number] 04/27/2024 12:00 EST Appointment [facility] Hematology & Oncology - [address] 808101 05/02/2024 15:00 EST Telemedicine [facility] Hematology & Oncology - [address] [phone] Alisson Carreon MD [address] [place] [address], [facility] 2 [place] [phone] 05/04/2024 10:15 EST Ancillary Procedure [facility] Cardiology - [address] [place], [place] [phone] 05/04/2024 11:30 EST Appointment [facility] [place] Hematology & Oncology - [address] [address] 05/04/2024 12:00 EST Appointment [facility] Hematology & Oncology - [address] [address] 06/12/2024 13:00 EST Appointment [facility] Radiology CT - [address] [address] documented as of this encounter Visit Diagnoses Not on filedocumented in this encounter Care Teams Drum Barker Operator Relationship Specialty Start Date End Date Linda Blancas MD [facility] [address] [place] [address] PCP - General 01/06/11 Adolfo Carreno MD [address] [place] [phone] General Surgery 04/26/19 Augustina Colin MD PhD [address] [place] [phone] Medical Oncology 04/26/19 documented as of this encounter
--- OUTSIDE RECORDS SUMMARY | 2024-03-20 15:00 | XMS_ITS | Encounter Summary ---
Author Organization [facility] Address [address] [place] [address] Care Team Providers Care Oncology Specialist Name Role Phone Linda Blancas MD Primary Care Provider [phone] Adolfo Carreno MD Unavailable [phone] Augustina Colin MD PhD Unavailable Unavailable Encounter Details Date Type Department Care Team (Latest Contact Info) Description 01/18/2020 Travel Social History Tobacco Use Types Packs/Day [...] Appointment [facility] Interventional Radiology Unit [address] [place] [address] [phone] 04/02/2024 15:15 EDT Office Visit [facility] Surgical Oncology - [address] [phone] Adolfo Carreno MD [address] [place] [address] 2 [place] [phone] 04/05/2024 9:30 EDT Telemedicine [facility] - [facility] Palliative Care Services [address] [place] [address] [phone] Chichi Woods MD [address] [place] [phone] 04/11/2024 15:00 EDT Telemedicine [facility] Hematology & Oncology [address] [phone] Alisson Carreon MD [address] [place] [phone] 04/13/2024 13:30 EDT Appointment [facility] Hematology & Oncology [address] [phone] 04/13/2024 14:00 EDT Appointment [facility] Hematology & Oncology [address] [phone] 04/16/2024 10:00 EST Telemedicine [facility] - [facility] Palliative Care Services [address] [place] [address] [phone] Chichi Woods MD [address] [place] [address], [address] [phone] 04/24/2024 9:00 EST Appointment [facility] Radiology CT Outpatient - [address] [id number] 04/24/2024 11:00 EST Appointment [facility] Breast Imaging - [facility] S [place] [address] [place], [place] 170241 04/27/2024 12:00 EST Appointment [facility] Hematology & Oncology - [address] [phone] 05/02/2024 15:00 EST Telemedicine [facility] Hematology & Oncology - [address] [phone] Alisson Carreon MD [address] [place] [address], Level [address] [place] [phone] 05/04/2024 10:15 EST Ancillary Procedure [facility] Cardiology - [place] [address] 05/04/2024 11:30 EST Appointment [facility] Hematology & Oncology - [address] 440951 05/04/2024 12:00 EST Appointment [facility] Hematology & Oncology [address] [phone] 06/12/2024 13:00 EST Appointment [facility] Radiology CT - [address] 184441 documented as of this encounter Visit Diagnoses Not on filedocumented in this encounter Care Teams Oncology Specialist Relationship Specialty Start Date End Date Linda Blancas MD [facility] [address] [place] [address] PCP - General 01/06/11 Adolfo Carreno MD [address] [place] [address] 2 [place] [phone] General Surgery 04/26/19 Augustina Colin MD PhD [address] [place] [address], [facility] 2 [place] [phone] Medical Oncology 04/26/19 documented as of this encounter
--- OUTSIDE RECORDS SUMMARY | 2024-03-20 15:00 | XMS_ITS | Encounter Summary ---
Author Organization [facility] Address [address] [place] [address] Care Team Providers Care Manager Electrical Name Role Phone Linda Blancas MD Primary Care Provider [phone] Adolfo Carreno MD Unavailable [phone] Augustina Colin MD PhD Unavailable Unavailable Reason for Referral * Radiology Services (Routine) - Closed Specialty Diagnoses / Procedures Referred By Doug hearn Referred To Contact Diagnoses Encounter for screening mammogram for malignant neoplasm of breast Procedures MA BREAST SCREENING Linda Robertson MD [address] [place] [address] Referral ID Status Reason Start Date Expiration Date Visits Re quested Visits Authorized [id number] Closed 01/01/2020 1 1 Reason for Visit * Radiology Services (Routine) - Closed Specialty Diagnoses / Procedures Referred By Doug hearn Referred To Contact Diagnoses Encounter for screening mammogram for malignant neoplasm of breast Procedures MA BREAST SCREENING Linda Robertson MD [address] [place] [address] Referral ID Status Reason Start Date Expiration Date Visits Re quested Visits Authorized [id number] Closed 01/01/2020 1 1 Encounter Details Date Type Department Care Team (Latest Contact Info) Description 02/19/2020 8:26 EDT - 02/19/2020 9:47 EDT [facility] Mammography - [facility] [address] [place] [address] Encounter for screening mammogram for malignant neoplasm [...] - - Height 156.2 cm (5' 1.5) 02/19/2020 0834 EDT Body Mass Index - - documented [...] Appointment [facility] Interventional Radiology Unit [address] [place] [address] [phone] 04/02/2024 15:15 EDT Office Visit [facility] Surgical Oncology - [address] [phone] Adolfo Carreno MD [address] [place] [address] [phone] 04/05/2024 9:30 EDT Telemedicine [facility] Palliative Care Services [address] [place] [address] [phone] Chichi Woods MD [address] [place] [address] [phone] 04/11/2024 15:00 EDT Telemedicine [facility] Hematology & Oncology [address] [phone] Alisson Carreon MD [address] [place] [phone] 04/13/2024 13:30 EDT Appointment [facility] Hematology & Oncology [address] [id number] 04/13/2024 14:00 EDT Appointment [facility] Hematology & Oncology [address] [phone] 04/16/2024 10:00 EST Telemedicine [facility] Palliative Care Services [address] [place] [address] [phone] Chichi Woods MD [address] [place] [address], [address] [phone] 04/24/2024 9:00 EST Appointment [facility] Radiology CT Outpatient - [address] [id number] 04/24/2024 11:00 EST Appointment [facility] Breast Imaging - [address] [id number] 04/27/2024 12:00 EST Appointment [facility] Hematology & Oncology [address] 130671 05/02/2024 15:00 EST Telemedicine [facility] Hematology & Oncology [address] 378771 Alisson Carreon MD [address] [place] [address], [facility], Level [address] [place] [phone] 05/04/2024 10:15 EST Ancillary Procedure [facility] Cardiology [place] [address] 05/04/2024 11:30 EST Appointment [facility] Hematology & Oncology [address] [phone] 05/04/2024 12:00 EST Appointment [facility] Hematology & Oncology - [address] 877311 06/12/2024 13:00 EST Appointment [facility] Radiology CT - [address] [phone] documented as of this encounter Procedures Procedure Name Priority Date/Time Associated Diagnosis Comments MA BREAST SCREENING ESTEVAN LEFT Routine 02/19/2020 8:57 EDT Encounter for screening mammogram for malignant neoplasm of breast documented in this encounter Results * MA BREAST SCREENING ESTEVAN LEFT (02/19/2020 8:57 EDT) Anatomical Region Laterality Modality Breast Left Mammography 02/19/2020 15:1 6 EDT Impressions 02/19/2020 15:16 EDT Benign, no evidence of malignancy. RECOMMENDATION: Routine screening mammography is recommended. OVERALL ASSESSMENT: BI-RADS 2: Benign These results will be communicated to your patient via a lay letter from Radiology. If any additional imaging is needed we will contact your patient directly. Narrative 02/19/2020 15:16 EDT MA BREAST SCREENING ESTEVAN LEFT ??02/19/2020 8:30 AM History: routine Comparison: ??Comparison has been made to previous images. Technique: Routine 3D tomosynthesis with synthesized 2D views with CAD Left Breast Composition: There are scattered areas of fibroglandular density. Left Breast Findings: No significant masses, calcifications or other abnormalities are seen. Retropectoral silicone implant appears intact. Procedure Note Aruna Paul MD - 02/19/2020 MA BREAST SCREENING ESTEVAN LEFT 02/19/2020 8:30 AM History: routine Comparison: Comparison has been made to previous images. Technique: Routine 3D tomosynthesis with synthesized 2D views with CAD Left Breast Composition: There are scattered areas of fibroglandulardensity. Left Breast Findings: No significant masses, calcifications or otherabnormalities are seen. Retropectoral silicone implant appears intact. IMPRESSION Benign, no evidence of malignancy. RECOMMENDATION: Routine screening mammography is recommended. OVERALL ASSESSMENT: BI-RADS 2: Benign These results will be communicated to your patient via a lay letter fromRadiology. If any additional imaging is needed we will contact yourpatient directly. Aruna Paul MD IMG MAMMOGRAPHY ORDE VERALES documented in this encounter Visit Diagnoses Diagnosis Encounter for screening mammogram for malignant neoplasm of breast Other screening mammogram documented in this encounter Care Teams Manager Electrical Relationship Specialty Start Date End Date Linda Blancas MD [facility] [address] [place] [address] PCP - General 01/06/11 Adolfo Carreno MD [address] [place] [address] 2 [place] [phone] General Surgery 04/26/19 Augustina Colin MD PhD [address] [place] [phone] Medical Oncology 04/26/19 documented as of this encounter
--- OUTSIDE RECORDS SUMMARY | 2024-03-20 15:00 | XMS_ITS | Encounter Summary ---
Author Organization [facility] Address [address] [place] [address] Care Team Providers Care Real Estate Sales Agent Name Role Phone Linda Blancas MD Primary Care Provider [phone] Adolfo Carreno MD Unavailable [phone] Augustina Colin MD PhD Unavailable Unavailable Encounter Details Date Type Department Care Team (Late st Contact Info) Description 02/22/2020 Specialty Pharmacy [facility] - [facility] [address], [place] [address] Aly Zapien, [facility] Social History Tobacco Use Types Packs/Day [...] Progress Notes * Aly Zapien RPH - 02/22/2020 1354 EDT Medication Therapy Initiation Note Sunshine Pleitez is a 59 y.o. female who will start treatment with abemaciclib for breast cancer. The patient is scheduled to start their treatment on 03/06/20 and will continue this therapy until disease progression or unacceptable toxicity. I performed a complete review of the patient's medical record, including medications, and allergies. Medication adherence: I stressed the importance of medication adherence in maximizing the benefits of the medication for this patient. No barriers to adherence were identified at this time. Drug-drug interactions: Medications were reviewed and pertinent drug-drug interactions were managed. Education: Patient was provided written and verbal education, including indication, schedule, planned start date, missed dose procedure, food and drug interactions, side effects and toxicities and their management, safe handling/disposal, and clinic contact instructions. Barriers to learning: No barriers to learning were identified. Patient verbalizes understanding andall questions were answered to the patient's satisfaction. Monitoring: Patient will have labs drawn every 2 weeks for first 2 months Support present: Follow-up planned: 04/01/20 ALY ZAPIEN RPH 03/03/2020 documented in this encounter Plan of Treatment Upcoming Encounters Date Type Department Care Team (Late st Contact Info) Description 04/02/2024 10:30 EDT Appointment [facility] Interventional Radiology Unit [address] [place] [address] [phone] 04/02/2024 15:15 EDT Office Visit [facility] Surgical Oncology - [place] [address] [place] [address] [phone] Adolfo Carreno MD [address] [place] [address], [facility] 2 [place] [phone] 04/05/2024 9:30 EDT Telemedicine [facility] Palliative Care Services [address] [place] [address] [phone] Chichi Woods MD [address] [place] [address] [phone] 04/11/2024 15:00 EDT Telemedicine [facility] Hematology & Oncology - [address] [phone] Alissno Carreon MD [address] [place] [address] 2 [place] [phone] 04/13/2024 13:30 EDT Appointment [facility] Hematology & Oncology - [address] [phone] 04/13/2024 14:00 EDT Appointment [facility] Hematology & Oncology - [address] [phone] 04/16/2024 10:00 EST Telemedicine [facility] Palliative Care Services [address] [place] [address] [id number] Chichi Woods MD [address] [place] [address] [phone] 04/24/2024 9:00 EST Appointment [facility] Radiology CT Outpatient - [address] [id number] 04/24/2024 11:00 EST Appointment [facility] Breast Imaging - [address] [address] 04/27/2024 12:00 EST Appointment [facility] Hematology & Oncology [address] 903151 05/02/2024 15:00 EST Telemedicine [facility] Hematology & Oncology [address] [phone] Alisson Carreon MD [address] [place] [address] [phone] 05/04/2024 10:15 EST Ancillary Procedure [facility] Cardiology [place] [address] [place] [address] 05/04/2024 11:30 EST Appointment [facility] Hematology & Oncology [address] [id number] 05/04/2024 12:00 EST Appointment [facility] Hematology & Oncology [address] [phone] 06/12/2024 13:00 EST Appointment [facility] Radiology CT - [address] [id number] documented as of this encounter Visit Diagnoses Not on filedocumented in this encounter Care Teams Real Estate Sales Agent Relationship Specialty Start Date End Date Linda Blancas MD [address] [place] [address] PCP - General 01/06/11 Adolfo Carreno MD [address] [place] [address] [phone] General Surgery 04/26/19 Augustina Colin MD PhD [address] [place] [phone] Medical Oncology 04/26/19 documented as of this encounter
--- OUTSIDE RECORDS SUMMARY | 2024-03-20 15:00 | XMS_ITS | Encounter Summary ---
Author Organization [facility] Address [address] [place] [address] Care Team Providers Care Manager Of Internal Audit Name Role Phone Linda Blancas MD Primary Care Provider [phone] Adolfo Carreno MD Unavailable [phone] Augustina Colin MD PhD Unavailable Unavailable Encounter Details Date Type Department Care Team (Latest Contact Info) Description 02/19/2020 Travel Social History Tobacco Use Types Packs/Day [...] [facility] Interventional Radiology Unit [address] [place] [address] [phone] 04/02/2024 15:15 EDT Office Visit [facility] Surgical Oncology - [address] [phone] Adolfo Carreno MD [address] [place] [address] 2 [place] [phone] 04/05/2024 9:30 EDT Telemedicine [facility] - [facility] Palliative Care Services [address] [place] [address] [phone] Chichi Woods MD [address] [place] [address] [phone] 04/11/2024 15:00 EDT Telemedicine [facility] Hematology & Oncology [address] 117001 Alisson Carreon MD [address] [place] [address] [phone] 04/13/2024 13:30 EDT Appointment [facility] Hematology & Oncology [address] [phone] 04/13/2024 14:00 EDT Appointment [facility] Hematology & Oncology [address] [phone] 04/16/2024 10:00 EST Telemedicine [facility] - [facility] Palliative Care Services [address] [place] [address] [phone] Chichi Woods MD [address] [place] [address], [address] [phone] 04/24/2024 9:[address] [facility] Radiology CT Outpatient - [address] [id number] 04/24/2024 11:00 EST Appointment [facility] Breast Imaging - [facility] [place] [address] [place], [place] 853401 04/27/2024 12:00 EST Appointment [facility] Hematology & Oncology - [address] [phone] 05/02/2024 15:00 EST Telemedicine [facility] Hematology & Oncology - [address] [phone] Alisson Carreon MD [address] [place] [address], Level [address] [place] [phone] 05/04/2024 10:15 EST Ancillary Procedure [facility] Cardiology - [place] [address] 05/04/2024 11:30 EST Appointment [facility] Hematology & Oncology - [address] [phone] 05/04/2024 12:00 EST Appointment [facility] Hematology & Oncology [address] [id number] 06/12/2024 13:[address] [facility] Radiology CT - [address] [phone] documented as of this encounter Visit Diagnoses Not on filedocumented in this encounter Care Teams Manager Of Internal Audit Relationship Specialty Start Date End Date Linda Blancas MD [facility] [address] [place] [address] PCP - General 01/06/11 Adolfo Carreno MD [address] [place] [address] 2 [place] [phone] General Surgery 04/26/19 Augustina Colin MD PhD [address] [place] [address], [facility] 2 [place] [phone] Medical Oncology 04/26/19 documented as of this encounter
--- OUTSIDE RECORDS SUMMARY | 2024-03-20 15:00 | XMS_ITS | Encounter Summary ---
Author Organization [facility] Address [address] [place] [address] Care Team Providers Care Flap Curer Name Role Phone Linda Blancas MD Primary Care Provider Adolfo Carreno MD Unavailable [phone] Augustina Colin MD PhD Unavailable Unavailable Encounter Details Date Type Department Care Team (Latest Contact Info) Description 02/12/2020 Travel Social History Tobacco Use Types Packs/Day [...] have Coronavirus / COVID-19? No / Unsure 02/12/2020 9:47 EDT documented as of this encounter Functional [...] Appointment [facility] Interventional Radiology Unit [address] [place] [address] [phone] 04/02/2024 15:15 EDT Office Visit [facility] Surgical Oncology - [address] [phone] Adolfo Carreno MD [address] [place] [address] 2 [place] [phone] 04/05/2024 9:[address] [facility] - [facility] Palliative Care Services [address] [place] [address] [phone] Chichi Woods MD [address] [place] [address] [phone] 04/11/2024 15:00 EDT Telemedicine [facility] Hematology & Oncology [address] 835151 Alisson Carreon MD [address] [place] [address] [phone] 04/13/2024 13:30 EDT Appointment [facility] Hematology & Oncology [address] [phone] 04/13/2024 14:00 EDT Appointment [facility] Hematology & Oncology [address] 038231 04/16/2024 10:[address] [facility] - [facility] Palliative Care Services [address] [place] [address] [phone] Chichi Woods MD [address] [place] [address], [address] [phone] 04/24/2024 9:00 EST Appointment [facility] Radiology CT Outpatient - [address] [id number] 04/24/2024 11:00 EST Appointment [facility] Breast Imaging - [facility] S [place] [address] [place], [place] [phone] 04/27/2024 12:00 EST Appointment [facility] Hematology & Oncology - [address] [phone] 05/02/2024 15:00 EST Telemedicine [facility] Hematology & Oncology - [address] [phone] Alisson Carreon MD [address] [place] [address], Level [address] [place] [phone] 05/04/2024 10:15 EST Ancillary Procedure [facility] Cardiology - [place] [address] 05/04/2024 11:30 EST Appointment [facility] Hematology & Oncology - [address] [phone] 05/04/2024 12:00 EST Appointment [facility] Hematology & Oncology [address] 168761 06/12/2024 13:00 EST Appointment [facility] Radiology CT - [address] 075821 documented as of this encounter Visit Diagnoses Not on filedocumented in this encounter Care Teams Flap Curer Relationship Specialty Start Date End Date Linda Blancas MD [facility] [address] [place] [address] PCP - General 01/06/11 Adolfo Carreno MD [address] [place] [address] 2 [place] [phone] General Surgery 04/26/19 Augustina Colin MD PhD [address] [place] [address], [facility] 2 [place] [phone] Medical Oncology 04/26/19 documented as of this encounter
--- OUTSIDE RECORDS SUMMARY | 2024-03-20 15:00 | XMS_ITS | Encounter Summary ---
Author Organization [facility] Address [address] [place] [address] Care Team Providers Care Nerve Specialist Name Role Phone Linda Blancas MD Primary Care Provider [phone] Adolfo Carreno MD Unavailable [phone] Augustina Colin MD PhD Unavailable Unavailable Reason for Visit * Reason Onset Date Comments Medications Refill 02/29/2020 Encounter Details Date Type Department Care Team (Late st Contact Info) Description 02/29/2020 Refill [facility] Hematology & Oncology - [facility] [address], [place] 898[address] Quita Rob RN Medications Refill Social History Tobacco Use Types [...] 12 hours. 60 Tab 2 02/29/2020 06/16/2020 documented in this encounter Miscellaneous Notes * Telephone Encounter - Quita Rob RN - 02/29/2020 1638 EDT Prescription for abemaciclib pended to Dr Colin for signature. documented in this encounter Plan of Treatment Upcoming Encounters Date Type Department Care Team (Late st Contact Info) Description 04/02/2024 10:30 EDT Appointment [facility] Interventional Radiology Unit [address], [place] [phone] 04/02/2024 15:15 EDT Office Visit [facility] Surgical Oncology - [facility] [address] [place] [address] Adolfo Carreno MD [address] [facility], Level 2 [place] [phone] 04/05/2024 9:30 EDT Telemedicine [facility] - [facility] Palliative Care Services [address], [place] [phone] Chichi Woods MD 111 [facility], [address] [phone] 04/11/2024 15:00 EDT Telemedicine [facility] Hematology & Oncology - [address] [phone] Alisson Carreon MD [address] [place] [address] 2 [place] [phone] 04/13/2024 13:30 EDT Appointment [facility] Hematology & Oncology - [address] [phone] 04/13/2024 14:00 EDT Appointment [facility] Hematology & Oncology - [address] [phone] 04/16/2024 10:00 EST Telemedicine [facility] - [facility] Palliative Care Services [address] [place] [address] 230241 Chichi Woods MD [address] [place] [address] [phone] 04/24/2024 9:00 EST Appointment [facility] Radiology CT Outpatient - [address] [id number] 04/24/2024 11:00 EST Appointment [facility] Breast Imaging - [address] 075861 04/27/2024 12:00 EST Appointment [facility] Hematology & Oncology - [address] [phone] 05/02/2024 15:00 EST Telemedicine [facility] Hematology & Oncology - [address] 390271 Alisson Carreon MD [address] [place] [address], [facility] 2 [place] [phone] 05/04/2024 10:15 EST Ancillary Procedure [facility] Cardiology - [address] [place] [address] 05/04/2024 11:30 EST Appointment [facility] Hematology & Oncology [address] [address] 05/04/2024 12:00 EST Appointment [facility] Hematology & Oncology [address] [address] 06/12/2024 13:00 EST Appointment [facility] Radiology CT - [address] [id number] documented as of this encounter Visit Diagnoses Diagnosis Metastatic breast cancer- Primary documented in this encounter Care Teams Nerve Specialist Relationship Specialty Start Date End Date Linda Blancas MD [facility] [address] [place] [address] PCP - General 01/06/11 Adolfo Carreno MD [address] [place] [address] [phone] General Surgery 04/26/19 Augustina Colin MD PhD [address] [place] [phone] Medical Oncology 04/26/19 documented as of this encounter
--- OUTSIDE RECORDS SUMMARY | 2024-03-20 15:00 | XMS_ITS | Encounter Summary ---
Author Organization [facility] Address [address] [place] [address] Care Team Providers Care Assembler Cards And Announcements Name Role Phone Linda Blancas MD Primary Care Provider [phone] Adolfo Carreno MD Unavailable [phone] Augustina Colin MD PhD Unavailable Unavailable Reason for Referral * Radiology Services (Routine) - Closed Specialty Diagnoses / Procedures Referred By Contac t Referred To Contact Radiology Diagnoses Metastatic breast cancer Procedures MR ABDOMEN W WO CONTRAST Augustina Colin MD PhD Referral ID Status Reason Start Date Expiration Date Visits Re quested Visits Authorized [id number] Closed 02/04/2020 08/01/2020 1 1 Reason for Visit * Radiology Services (Routine) - Closed Specialty Diagnoses / Procedures Referred By Doug t Referred To Contact Radiology Diagnoses Metastatic breast cancer Procedures MR ABDOMEN W WO CONTRAST Augustina Colin MD PhD Referral ID Status Reason Start Date Expiration Date Visits Re quested Visits Authorized [id number] Closed 02/04/2020 08/01/2020 1 1 Encounter Details Date Type Department Care Team (Latest Contact Info) Description 02/19/2020 9:48 EDT - 02/19/2020 23:59 EDT [address] Encounter [address] [facility] [address] [place], [place] [phone] Metastatic breast cancer (HCC-CMS) Discharge Disposition: Home [...] [facility] [address] [place] [address] [phone] 04/02/2024 15:15 EDT Office Visit [facility] Surgical Oncology - Main [address] [address] Adolfo Carreno MD [address] [place] [address], [facility] [address] [place] [phone] 04/05/2024 9:30 EDT Telemedicine [facility] Palliative Care Services [address] [place] [address] [phone] Chichi Woods MD [address] [place] [phone] 04/11/2024 15:00 EDT Telemedicine [facility] Hematology & Oncology - [address] [phone] Alisson Carreon MD [address] [place] [address] 2 [place] [phone] 04/13/2024 13:30 EDT Appointment [facility] Hematology & Oncology - [address] [phone] 04/13/2024 14:00 EDT Appointment [facility] Hematology & Oncology - [address] [phone] 04/16/2024 10:00 EST Telemedicine [facility] Palliative Care Services [address] [place] [address] [phone] Chichi Woods MD [address] [place] [address] [phone] 04/24/2024 9:00 EST Appointment [facility] Radiology CT Outpatient - [address] [id number] 04/24/2024 11:00 EST Appointment [facility] Breast Imaging - [address] [phone] 04/27/2024 12:00 EST Appointment [facility] Hematology & Oncology [address] [id number] 05/02/2024 15:00 EST Telemedicine [facility] Hematology & Oncology [address] [phone] Alisson Carreon MD [address] [place], [place] [address], Level 2 [place] [phone] 05/04/2024 10:15 EST Ancillary Procedure [facility] Cardiology [place] [place] [address] 05/04/2024 11:30 EST Appointment [facility] Hematology & Oncology [address] [id number] 05/04/2024 12:00 EST Appointment [facility] Hematology & Oncology [address] [id number] 06/12/2024 13:00 EST Appointment [facility] Radiology CT - [address] [phone] documented as of this encounter Procedures Procedure Name Priority Date/Time Associated Diagnosis Comments MR ABDOMEN W WO CONTRAST Routine 02/19/2020 10:47 EDT Metastatic breast cancer (HCC-CMS) documented in this encounter Results * MR ABDOMEN W WO CONTRAST (02/19/2020 10:47 EDT) Anatomical Region Laterality Modality Body, Abdomen Magnetic Resonan ce 02/19/2020 16:4 2 EDT Impressions 02/19/2020 16:42 EDT 1. ??Tiny subcapsular lesions in segments 2 and 8 are difficult to characterize due to small size. Lesions are indeterminant and cannot safely be characterized as hemangiomas or other benign liver lesions. Metastatic disease cannot be excluded in this patient with known sherrie metastatic disease. Consider follow-up MRI with contrast in 3 months to reassess size. 2. ??No signs of potential metastatic disease or lymphadenopathy within the abdomen. 3. ??Right renal cysts. I have personally reviewed the images and the above interpretation and agree with the findings. Narrative 02/19/2020 16:42 EDT MR ABDOMEN W WO CONTRAST ??02/19/2020 10:15 AM Signs and Symptoms/Comments: ?? History of metastatic breast carcinoma. Technique: Js-xqf-wzd-of-phase, T2-weighted, diffusion weighted images were followed by dynamic gadolinium enhanced T1 fat-suppressed gradient echo images of the abdomen. Gadavist was used as the contrast agent. Subtraction imaging performed. Comparison: CT abdomen and pelvis 01/18/2020. CT abdomen 10/27/2016. Nuclear medicine bone scan 01/18/2020. Findings: Lower chest: No significant abnormality. Bilateral breast implants are noted. Hepatobiliary: A 0.6 cm subcapsular hypoenhancing lesion in segment 8 (portal venous postcontrast series 1001, image #168) with possible delayed filling of contrast as seen on the subtraction images (5 minute postcontrast subtraction series 1002, image #175). The lesion is hyperintense on the b800. Of note, this lesion in retrospect was identified on the CT from 01/18/2020 (axial image #44) but not comparably identified on the 10/27/2016 study. Corresponding with recent CT is a 0.5 cm subcapsular lesion in segment 2 that is hypoenhancing on the early postcontrast sequences and shows possible homogeneous filling on the 5 minute postcontrast (5 minute postcontrast subtraction series 1002, #198). The lesion is unchanged in size compared to prior CT. A 0.3 cm T2 hyperintense nonenhancing cyst is seen in segment 4 (portal venous postcontrast series 1001, image #123 and axial fiesta image #11). This lesion is been stable multiple prior CTs. Hypoattenuating region adjacent to the falciform ligament shows no enhancement or restricted diffusion. The lesion is not confidently identified on the in and out of phase images probably represented a perfusion anomaly on CT. No biliary ductal dilatation. The gallbladder is normal. Spleen, pancreas, adrenal glands: The spleen, pancreas and adrenal glands are within normal limits with no focal lesion identified. Kidneys, proximal ureters: The kidneys enhance symmetrically with multiple scattered subcentimeter nonenhancing T2 hyperintense cysts seen in the right kidney. No hydronephrosis. Proximal ureters are normal in course and caliber. Bowel: No evidence of bowel obstruction or acute inflammatory change. Peritoneal cavity: No free fluid or fluid collection is seen. Lymphovascular: Abdominal aorta is normal in caliber. No lymphadenopathy. Abdominal wall: No bowel containing hernia. Musculoskeletal: Bone marrow signals within normal limits with no focal suspicious osseous lesion identified. Posterior spinal fusion hardware seen in the lumbar spine. Localizer: No additional findings. Procedure Note Pavan Ceron MD - 02/19/2020 MR ABDOMEN W WO CONTRAST 02/19/2020 10:15 AM Signs and Symptoms/Comments: History of metastatic breast carcinoma. Technique: Um-fok-cec-of-phase, T2-weighted, diffusion weighted images were followedby dynamic gadolinium enhanced T1 fat-suppressed gradient echo images ofthe abdomen. Gadavist was used as the contrast agent. Subtraction imagingperformed. Comparison: CT abdomen and pelvis 01/18/2020. CT abdomen 10/27/2016. Nuclear medicinebone scan 01/18/2020. Findings: Lower chest: No significant abnormality. Bilateral breast implants arenoted. Hepatobiliary: A 0.6 cm subcapsular hypoenhancing lesion in segment 8(portal venous postcontrast series 1001, image #168) with possible delayedfilling of contrast as seen on the subtraction images (5 minutepostcontrast subtraction series 1002, image #175). The lesion ishyperintense on the b800. Of note, this lesion in retrospect wasidentified on the CT from 01/18/2020 (axial image #44) but not comparablyidentified on the 10/27/2016 study. Corresponding with recent CT is a 0.5 cm subcapsular lesion in segment 2that is hypoenhancing on the early postcontrast sequences and showspossible homogeneous filling on the 5 minute postcontrast (5 minutepostcontrast subtraction series 1002, #198). The lesion is unchanged insize compared to prior CT. A 0.3 cm T2 hyperintense nonenhancing cyst is seen in segment 4 (portalvenous postcontrast series 1001, image #123 and axial fiesta image #11).This lesion is been stable multiple prior CTs. Hypoattenuating region adjacent to the falciform ligament shows noenhancement or restricted diffusion. The lesion is not confidentlyidentified on the in and out of phase images probably represented aperfusion anomaly on CT. No biliary ductal dilatation. The gallbladder is normal. Spleen, pancreas, adrenal glands: The spleen, pancreas and adrenal glandsare within normal limits with no focal lesion identified. Kidneys, proximal ureters: The kidneys enhance symmetrically with multiplescattered subcentimeter nonenhancing T2 hyperintense cysts seen in theright kidney. No hydronephrosis. Proximal ureters are normal in course andcaliber. Bowel: No evidence of bowel obstruction or acute inflammatory change. Peritoneal cavity: No free fluid or fluid collection is seen. Lymphovascular: Abdominal aorta is normal in caliber. Nolymphadenopathy. Abdominal wall: No bowel containing hernia. Musculoskeletal: Bone marrow signals within normal limits with no focalsuspicious osseous lesion identified. Posterior spinal fusion hardwareseen in the lumbar spine. Localizer: No additional findings. IMPRESSION 1. Tiny subcapsular lesions in segments 2 and 8 are difficult tocharacterize due to small size. Lesions are indeterminant and cannotsafely be characterized as hemangiomas or other benign liver lesions.Metastatic disease cannot be excluded in this patient with known nodalmetastatic disease. Consider follow-up MRI with contrast in 3 months toreassess size. 2. No signs of potential metastatic disease or lymphadenopathy within theabdomen. 3. Right renal cysts. I have personally reviewed the images and [...] Once in imaging, 1 dose, Starting on Tue02/19/20 at 1013, Until Tue02/19/20 at 1047, Routine, Imaging Protocol Orders Given 02/19/2020 10:47 EDT 6.2 mmol documented in this encounter Care Teams Assembler Cards And Announcements Relationship Specialty Start Date End Date Linda Blancas MD [address] [place] [address] PCP - General 01/06/11 Adolfo Carreno MD [address] [place] [address] 2 [place] [phone] General Surgery 04/26/19 Augustina Colin MD PhD [address] [place] [phone] Medical Oncology 04/26/19 documented as of this encounter
--- OUTSIDE RECORDS SUMMARY | 2024-03-20 15:00 | XMS_ITS | Encounter Summary ---
Author Organization [facility] Address [address] [place] [address] Care Team Providers Care Vault Person Name Role Phone Linda Blancas MD Primary Care Provider [phone] Adolfo Carreno MD Unavailable [phone] Augustina Colin MD PhD Unavailable Unavailable Reason for Visit * Radiology Services (Routine) - Closed Specialty Diagnoses / Procedures Referred By Zackac dhiraj Referred To Contact Nuclear Medicine Diagnoses Metastatic breast cancer Procedures NM BONE WHOLE BODY NM BONE SCAN 3 PHASE Augustina Colin MD PhD Referral ID Status Reason Start Date Expiration Date Visits Re quested Visits Authorized [id number] Closed 01/02/2020 1 1 Encounter Details Date Type Department Care Team (Latest Contact Info) Description 01/18/2020 10:30 EDT [facility] Nuclear Medicine and PET - [address] [address] Discharge Disposition: Home or Self Care Social [...] [facility] Interventional Radiology Unit [address] [place] [address] [phone] 04/02/2024 15:15 EDT Office Visit [facility] Surgical Oncology - [facility] [address] [place], [place] [phone] Adolfo Carreno MD [address] [place] [address], Level 2 [place] [phone] 04/05/2024 9:30 EDT Telemedicine [facility] - [facility] Palliative Care Services [address] [place] [address] [phone] Chichi Woods MD [address] [place] [address] [address] [place] [phone] 04/11/2024 15:00 EDT Telemedicine [facility] Hematology & Oncology - [address] [phone] Alisson Carreon MD [address] [place] [address] 2 [place] [phone] 04/13/2024 13:30 EDT Appointment [facility] Hematology & Oncology - [address] [phone] 04/13/2024 14:00 EDT Appointment [facility] Hematology & Oncology - [address] [id number] 04/16/2024 10:00 EST Telemedicine [facility] - [facility] Palliative Care Services [address] [place] [address] [phone] Chichi Woods MD [address] [place] [phone] 04/24/2024 9:00 EST Appointment [facility] Radiology CT Outpatient - [address] [id number] 04/24/2024 11:00 EST Appointment [facility] Breast Imaging - [address] [id number] 04/27/2024 12:00 EST Appointment [facility] Hematology & Oncology - [address] [phone] 05/02/2024 15:00 EST Telemedicine [facility] Hematology & Oncology - [address] [phone] Alisson Carreon MD [address] [place] [address] 2 [place] [phone] 05/04/2024 10:15 EST Ancillary Procedure [facility] Cardiology - [address] [place] [address] 05/04/2024 11:30 EST Appointment [facility] Hematology & Oncology - [address] [phone] 05/04/2024 12:00 EST Appointment [facility] Hematology & Oncology [address] [id number] 06/12/2024 13:00 EST Appointment [facility] Radiology CT - [address] [id number] documented as of this encounter Procedures Procedure Name Priority Date/Time Associated Diagnosis Comments MT BONE WHOLE BODY Routine 01/18/2020 14 :43 EDT Metastatic breast cancer (HCC-CMS) documented in this encounter Results * MT BONE WHOLE BODY (01/18/2020 14:43 EDT) Anatomical [...] on filedocumented in this encounter Care Teams Vault Person Relationship Specialty Start Date End Date Linda Blancas MD [facility] [address] [place] [address] PCP - General 01/06/11 Adolfo Carreno MD [address] [place] [phone] General Surgery 04/26/19 Augustina Colin MD PhD [address] [place] [phone] Medical Oncology 04/26/19 documented as of this encounter
--- OUTSIDE RECORDS SUMMARY | 2024-03-20 15:00 | XMS_ITS | Encounter Summary ---
Author Organization [facility] Address [address] [place] [address] Care Team Providers Care Budget Record Clerk Name Role Phone Linda Blancas MD Primary Care Provider [phone] Adolfo Carreno MD Unavailable [phone] Augustina Colin MD PhD Unavailable Unavailable Encounter Details Date Type Department Care Team (Late st Contact Info) Description 01/28/2020 15:15 EDT Ancillary Procedure [facility] Surgical Oncology - Main [place] [address] [place] [address] Social History Tobacco Use Types Packs/Day Years [...] Appointment [facility] Interventional Radiology Unit [address] [place] [address] [phone] 04/02/2024 15:15 EDT Office Visit [facility] Surgical Oncology - [address] 189451 Adolfo Carreno MD [address] [place] [address] 2 [place] [phone] 04/05/2024 9:30 EDT Telemedicine [facility] - [facility] Palliative Care Services [address] [place] [address] [phone] Chichi Woods MD [address] [place] [phone] 04/11/2024 15:00 EDT Telemedicine [facility] Hematology & Oncology - [address] [phone] Alisson Carreon MD [address] [place] [address] 2 [place] [phone] 04/13/2024 13:30 EDT Appointment [facility] Hematology & Oncology [address] [phone] 04/13/2024 14:00 EDT Appointment [facility] Hematology & Oncology - [address] [phone] 04/16/2024 10:00 EST Telemedicine [facility] - [facility] Palliative Care Services [address] [place], [place] 2464[address] Chichi Woods MD 111 [facility], [address] [phone] 04/24/2024 9:00 EST Appointment [facility] Radiology CT Outpatient - [address] [id number] 04/24/2024 11:00 EST Appointment [facility] Breast Imaging - [address] 435551 04/27/2024 12:00 EST Appointment [facility] Hematology & Oncology - [address] [phone] 05/02/2024 15:00 EST Telemedicine [facility] Hematology & Oncology - [address] 100401 Alisson Carreon MD [address] [place] [address], [facility] [address] [place] [phone] 05/04/2024 10:15 EST Ancillary Procedure [facility] Cardiology - [place] [address] 05/04/2024 11:30 EST Appointment [facility] Hematology & Oncology - [address] [phone] 05/04/2024 12:00 EST Appointment [facility] Hematology & Oncology - [address] [address] 06/12/2024 13:00 EST Appointment [facility] Radiology CT - [address] [phone] documented as of this encounter Procedures Procedure Name Priority Date/Time Associated Diagnosis Comments [facility] BREAST BREAST [facility] ONLY Routine 01/28/2020 16:18 EDT documented in this encounter Results * [facility] BREAST BREAST [facility] ONLY (01/28/2020 16:18 EDT) Narrative [facility] POINT OF CARE - 01/28/2020 16:18 EDT This is a non-reportable exam. Adolfo Carreno MD IMG US POC ORDERABLE S [place] POINT OF CARE documented in this encounter Visit Diagnoses Not on filedocumented in this encounter Care Teams Budget Record Clerk Relationship Specialty Start Date End Date Linda Blancas MD [facility] [address] [place] [address] PCP - General 01/06/11 Adolfo Carreno MD [address] [place] [phone] General Surgery 04/26/19 Augustina Colin MD PhD [address] [place] [address] 2 [place] [phone] Medical Oncology 04/26/19 documented as of this encounter
--- OUTSIDE RECORDS SUMMARY | 2024-03-20 15:00 | XMS_ITS | Encounter Summary ---
Author Organization [facility] Address [address] [place] [address] Care Team Providers Care Boxing Promoter Name Role Phone Linda Blancas MD Primary Care Provider [phone] Adolfo Carreno MD Unavailable [phone] Augustina Colin MD PhD Unavailable Unavailable Reason for Visit * Reason Onset Date Comments Appointment Related 03/03/2020 Encounter Details Date Type Department Care Team (Late st Contact Info) Description 03/03/2020 Orders Only [facility] Spine Program - [address] [address] Karen Holley PA-C [address] [place] [address] [place] [phone] Low back pain, unspecified back pain laterality, unspecified chronicity, unspecified whether sciatica present (Primary Dx) Social History Tobacco Use Types [...] EDT Appointment [facility] Interventional Radiology Unit [address] [place] [address] 04/02/2024 15:15 EDT Office Visit [facility] Surgical Oncology - [address] 094001 Adolfo Carreno MD [address] [place] [address], [facility] [address] [place] [phone] 04/05/2024 9:30 EDT Telemedicine [facility] - [facility] Palliative Care Services [address] [place], [place] 835651 Chichi Woods MD [address] [place] [address] [phone] 04/11/2024 15:00 EDT Telemedicine [facility] Hematology & Oncology - [address] [phone] Alisson Carreon MD [address] [place] [address], Level [address] [place] [phone] 04/13/2024 13:30 EDT Appointment [facility] Hematology & Oncology [address] [phone] 04/13/2024 14:00 EDT Appointment [facility] Hematology & Oncology - [address] [phone] 04/16/2024 10:00 EST Telemedicine [facility] - [facility] Palliative Care Services [address] [place] [address] [phone] Chichi Woods MD [address] [place] [address], [address] [phone] 04/24/2024 9:00 EST Appointment [facility] Radiology CT Outpatient - [address] 516231 04/24/2024 11:00 EST Appointment [facility] Breast Imaging - [facility] [address] [phone] 04/27/2024 12:00 EST Appointment [facility] Hematology & Oncology [address] [phone] 05/02/2024 15:00 EST Telemedicine [facility] Hematology & Oncology - [address] [phone] Alisson Carreon MD [address] [place] [address], Level [address] [place] [phone] 05/04/2024 10:15 EST Ancillary Procedure [facility] Cardiology - [address] [place], [place] [phone] 05/04/2024 11:30 EST Appointment [facility] Hematology & Oncology - [address] [address] 05/04/2024 12:00 EST Appointment [facility] Hematology & Oncology [address] [address] 06/12/2024 13:00 EST [facility]ointment [facility] Radiology CT - [address] [address] documented as of this encounter Results * XR LUMBAR SPINE [...] CT abdomen/pelvis from 01/18/2020. Lumbar spine radiographs from9/. TECHNIQUE: Upright AP as well as lateral [...] unspecified chronicity, unspecified whether sciatica present- Primary Low back pain, unspecified back pain laterality, unspecified chronicity, unspecified whether sciatica present documented in this encounter Care Teams Boxing Promoter Relationship Specialty Start Date End Date Linda Blancas MD [address] [place] [address] 30 [place] [address] PCP - General 01/06/11 Adolfo Carreno MD [address] [place] [phone] General Surgery 04/26/19 Augustina Colin MD PhD [address] [place] [phone] Medical Oncology 04/26/19 documented as of this encounter
--- OUTSIDE RECORDS SUMMARY | 2024-03-20 15:00 | XMS_ITS | Encounter Summary ---
Author Organization [facility] Address [address] [place] [address] Care Team Providers Care Jackscrew Man Name Role Phone Linda Blancas MD Primary Care Provider [phone] Adolfo Carreno MD Unavailable [phone] Augustina Colin MD PhD Unavailable Unavailable Reason for Referral * Radiology Services (Routine) - Closed Specialty Diagnoses / Procedures Referred By Doug hearn Referred To Contact Radiology Diagnoses Metastatic breast cancer Procedures MR HIP W WO CONTRAST LEFT Augustina Colin MD PhD Referral ID Status Reason Start Date Expiration Date Visits Re quested Visits Authorized [id number] Closed 02/21/2020 08/18/2020 1 1 Encounter Details Date Type Department Care Team (Late st Contact Info) Description 02/21/2020 Orders Only [facility] Hematology & Oncology - Main [place] [address] [place] [address] [phone] Quita Rob RN Metastatic breast cancer (HCC-CMS) (Primary Dx) Social [...] [facility] Interventional Radiology Unit [address], [place] [phone] 04/02/2024 15:15 EDT Office Visit [facility] Surgical Oncology - [facility] [address], [place] [phone] Adolfo Carreno MD 111 [facility], [facility] [address] [place] [phone] 04/05/2024 9:30 EDT Telemedicine [facility] - [facility] Palliative Care Services [address], [place] 684[address] Chichi Woods MD 111 [facility], [address] [phone] 04/11/2024 15:00 EDT Telemedicine [facility] Hematology & Oncology [facility] [address], [place] 737371 Alisson Carreon MD [address] [place] [address], [facility] [address] [place] [phone] 04/13/2024 13:30 EDT Appointment [facility] Hematology & Oncology - [address] [phone] 04/13/2024 14:00 EDT Appointment [facility] Hematology & Oncology - [address] [phone] 04/16/2024 10:00 EST Telemedicine [facility] - [facility] Palliative Care Services [address] [place] [address] [phone] Chichi Woods MD [address] [place] [address], [address] [phone] 04/24/2024 9:00 EST Appointment [facility] Radiology CT Outpatient - [address] [id number] 04/24/2024 11:00 EST Appointment [facility] Breast Imaging - [facility] S [address] 552491 04/27/2024 12:00 EST Appointment [facility] Hematology & Oncology - [address] 117521 05/02/2024 15:00 EST Telemedicine [facility] Hematology & Oncology - [address] 087201 Alisson Carreon MD [address] [place] [address], [facility] [address] [place] [phone] 05/04/2024 10:15 EST Ancillary Procedure [facility] Cardiology - [address] [place], [place] [phone] 05/04/2024 11:30 EST Appointment [facility] Hematology & Oncology - [address] [address] 05/04/2024 12:00 EST Appointment [facility] Hematology & Oncology [address] [address] 06/12/2024 13:00 EST Appointment [facility] Radiology CT - [address] [address] documented as of this encounter Results * MR HIP W WO CONTRAST LEFT (03/06/2020 12:20 EDT) Anatomical Region Laterality Modality Lower Extremities Left Magnetic Reson ance 03/07/2020 11:4 2 EDT Narrative 03/07/2020 11:42 EDT EXAM: MR HIP W WO CONTRAST LEFT 03/06/2020 11:30 AM TECHNIQUE: Routine multiplanar and multisequence MR images of the left hip were obtained before and after the intravenous administration of contrast without complications. SIGNS AND SYMPTOMS: Bone scan suggested a possible metastatic site in the left hip and recommended an left hip MRI. COMPARISON: Nuclear medicine bone scan 01/18/2020, CT abdomen pelvis 01/18/2020. FINDINGS: Bones and Alignment: Correlating with the area of increased uptake in the comparison bone scan and the lucent lesion with a peripheral sclerosis seen at the same level at the concurrent CT is an intraosseous lesion that is hypointense on T1, hyperintense on T2, and shows enhancement after contrast administration. Based on its overall radiographic, CT, and MR imaging appearance, as well as its behavior on the whole body bone scan, this most likely corresponds to fibrocystic changes/synovial herniation pits (Mcpherson's pits). These can grow over time and can have variable patterns of enhancement due to synovial herniation into the cysts. No overly aggressive imaging features are seen. No associated pathologic fracture is identified. No evidence of avascular necrosis. No other concerning osseous lesions are seen. Cartilage: Mild degenerative changes in the left hip. Acetabular labrum: Intact. Joint space: No sizable left hip joint effusion. Muscles and Tendons: Lateral group: Partial tearing of the gluteus medius and minimus tendons at their distal insertion on the greater trochanter with a small amount of reactive subgluteal bursal fluid.. Anterior group: No significant abnormality. Medial group: No significant abnormality. Posterior group: Partial tear at the origin of the left hamstrings at the ischial tuberosity. Bursae: Small amount of subgluteal bursal fluid, likely reactive. There is no trochanteric, iliopsoas or ischiogluteal bursitis. IMPRESSION RIGHT HIP MRI: 1. Based on overall radiographic, CT, and MR imaging appearance, the area correlating with increased uptake in the comparison bone scan most likely corresponds to fibrocystic changes/synovial herniation pits (Mcpherson's pits) rather than metastasis, as described above in detail. 2. Partial tearing of the left gluteus medius and minimus tendons at their distal trochanteric insertion with a small amount of reactive subgluteal bursal fluid. 3. Partial tear at the origin of the left hamstrings at the ischial tuberosity. I have personally reviewed the images and the above interpretation and agree with the findings. Procedure Note Keith Levin MD - 03/07/2020 EXAM: MR HIP W WO CONTRAST LEFT 03/06/2020 11:30 AM TECHNIQUE: Routine multiplanar and multisequence MR images of the left hipwere obtained before and after the intravenous administration of contrastwithout complications. SIGNS AND SYMPTOMS: Bone scan suggested a possible metastatic site in theleft hip and recommended an left hip MRI. COMPARISON: Nuclear medicine bone scan 01/18/2020, CT abdomen pelvis01/18/2020. FINDINGS: Bones and Alignment: Correlating with the area of increased uptake in thecomparison bone scan and the lucent lesion with a peripheral sclerosisseen at the same level at the concurrent CT is an intraosseous lesion thatis hypointense on T1, hyperintense on T2, and shows enhancement aftercontrast administration. Based on its overall radiographic, CT, and MRimaging appearance, as well as its behavior on the whole body bone scan,this most likely corresponds to fibrocystic changes/synovial herniationpits (Tyrese's pits). These can grow over time and can have variablepatterns of enhancement due to synovial herniation into the cysts. Nooverly aggressive imaging features are seen. No associated pathologicfracture is identified. No evidence of avascular necrosis. No otherconcerning osseous lesions are seen. Cartilage: Mild degenerative changes in the left hip. Acetabular labrum: Intact. Joint space: No sizable left hip joint effusion. Muscles and Tendons: Lateral group: Partial tearing of the gluteus medius and minimus tendonsat their distal insertion on the greater trochanter with a small amount ofreactive subgluteal bursal fluid.. Anterior group: No significant abnormality. Medial group: No significant abnormality. Posterior group: Partial tear at the origin of the left hamstrings at theischial tuberosity. Bursae: Small amount of subgluteal bursal fluid, likely reactive. There isno trochanteric, iliopsoas or ischiogluteal bursitis. IMPRESSION RIGHT HIP MRI: 1. Based on overall radiographic, CT, and MR imaging appearance, the areacorrelating with increased uptake in the comparison bone scan most likelycorresponds to fibrocystic changes/synovial herniation pits (Mcpherson's pits)rather than metastasis, as described above in detail. 2. Partial tearing of the left gluteus medius and minimus tendons at theirdistal trochanteric insertion with a small amount of reactive subglutealbursal fluid. 3. Partial tear at the origin of the left hamstrings at the ischialtuberosity. I have personally reviewed the images and the above interpretation andagree with the findings. Augustina Colin MD PhD IMG MRI ORDERABLES documented in this encounter Visit Diagnoses Diagnosis Metastatic breast cancer- Primary Metastatic breast cancer documented in this encounter Care Teams Jackscrew Man Relationship Specialty Start Date End Date Linda Blancas MD [facility] [address] [place] [address] PCP - General 01/06/11 Adolfo Carreno MD [address] [place] [phone] General Surgery 04/26/19 Augustina Colin MD PhD [address] [place] [address] [place] [address] Medical Oncology 04/26/19 documented as of this encounter
--- OUTSIDE RECORDS SUMMARY | 2024-03-20 15:00 | XMS_ITS | Encounter Summary ---
Author Organization [facility] Address [address] [place] [address] Care Team Providers Care Ship'S Captain Name Role Phone Linda Blancas MD Primary Care Provider [phone] Adolfo Carreno MD Unavailable [phone] Augustina Colin MD PhD Unavailable Unavailable Reason for Referral * Radiology Services (Routine) - Closed Specialty Diagnoses / Procedures Referred By Contdayanna hearn Referred To Contact Radiology Diagnoses Metastatic breast cancer Procedures MR ABDOMEN W WO CONTRAST Augustina Colin MD PhD Referral ID Status Reason Start Date Expiration Date Visits Re quested Visits Authorized [id number] Closed 02/04/2020 08/01/2020 1 1 Encounter Details Date Type Department Care Team (Late st Contact Info) Description 01/24/2020 Orders Only [facility] Hematology & Oncology - Main [address] [address] Augustina Colin MD PhD Personal history of malignant neoplasm of breast (Primary Dx); Metastatic breast cancer (HCC-CMS) Social History Tobacco [...] [facility] Interventional Radiology Unit [address] [place] [address] 04/02/2024 15:15 EDT Office Visit [facility] Surgical Oncology - [address] [phone] Adolfo Carreno MD 111 [facility], Level 2 [place] [phone] 04/05/2024 9:[address] [facility] - [facility] Palliative Care Services [address] [place], [place] [phone] Chichi Woods MD 111 [facility], [address] [phone] 04/11/2024 15:00 EDT Telemedicine [facility] Hematology & Oncology - [address] 095991 Alisson Carreon MD [address] [place] [address] 2 [place] [phone] 04/13/2024 13:30 EDT Appointment [facility] Hematology & Oncology - [address] [phone] 04/13/2024 14:00 EDT Appointment [facility] Hematology & Oncology - [address] [phone] 04/16/2024 10:[address] [facility] - [facility] Palliative Care Services [address] [place] [address] [phone] Chichi Woods MD [address] [place] [address], [address] [phone] 04/24/2024 9:00 EST Appointment [facility] Radiology CT Outpatient - [address] [id number] 04/24/2024 11:00 EST Appointment [facility] Breast Imaging - [address] [phone] 04/27/2024 12:00 EST Appointment [facility] Hematology & Oncology - [address] 732131 05/02/2024 15:00 EST Telemedicine [facility] Hematology & Oncology - [address] [phone] Alisson Carreon MD [address] [place] [address], [facility] 2 [place] [phone] 05/04/2024 10:15 EST Ancillary Procedure [facility] Cardiology - [place] [address] 05/04/2024 11:30 EST Appointment [facility] Hematology & Oncology - [address] [address] 05/04/2024 12:00 EST Appointment [facility] Hematology & Oncology [address] [address] 06/12/2024 13:00 EST Appointment [facility] Radiology CT - [address] [address] documented as of this encounter Results * [...] ?? History of metastatic breast carcinoma. Technique: Eb-gfg-awl-of-phase, T2-weighted, diffusion weighted images were followed by [...] Symptoms/Comments: History of metastatic breast carcinoma. Technique: Ta-hes-tgt-of-phase, T2-weighted, diffusion weighted images were followedby dynamic [...] history of malignant neoplasm of breast- Primary Metastatic breast cancer Metastatic breast cancer documented in this encounter Care Teams Ship'S Captain Relationship Specialty Start Date End Date Linda Blancas MD [facility] [address] [place] [address] PCP - General 01/06/11 Adolfo Carreno MD [address] [place] [phone] General Surgery 04/26/19 Augustina Colin MD PhD [address] [place] [address] 2 [place] [phone] Medical Oncology 04/26/19 documented as of this encounter
--- OUTSIDE RECORDS SUMMARY | 2024-03-20 15:00 | XMS_ITS | Encounter Summary ---
Author Organization [facility] Address [address] [place] [address] Care Team Providers Care Cmo & President Name Role Phone Linda Blancas MD Primary Care Provider [phone] Adolfo Carreno MD Unavailable [phone] Augustina Colin MD PhD Unavailable Unavailable Encounter Details Date Type Department Care Team (Late st Contact Info) Description 01/25/2020 Orders Only [facility] Radiology - Main [place] [address] [place] [address] Santi Morrell MD [address] [place] [facility] [phone] Social History Tobacco Use Types Packs/Day Years [...] [facility] [address] [place] [address] 634321 04/02/2024 15:15 EDT Office Visit [facility] Surgical Oncology - [address] [phone] Adolfo Carreno MD 111 [facility] [address] [place] [phone] 04/05/2024 9:30 EDT Telemedicine [facility] - [facility] Palliative Care Services [address] [place], [place] 527301 Chichi Woods MD [address] [place] [address], [address] [phone] 04/11/2024 15:00 EDT Telemedicine [facility] Hematology & Oncology - [address] [phone] Alisson Carreon MD [address] [place] [address], [facility] 2 [place] [phone] 04/13/2024 13:30 EDT Appointment [facility] Hematology & Oncology - [address] [phone] 04/13/2024 14:00 EDT Appointment [facility] Hematology & Oncology [address] [address] 04/16/2024 10:00 EST Telemedicine [facility] - [facility] Palliative Care Services [address] [place] [address] 739201 Chichi Woods MD [address] [place] [address], [address] [phone] 04/24/2024 9:00 EST Appointment [facility] Radiology CT Outpatient - [address] 024471 04/24/2024 11:00 EST Appointment [facility] Breast Imaging - [facility] [place] [address] [place], [place] [address]771 04/27/2024 12:00 EST Appointment [facility] Hematology & Oncology [address] 918071 05/02/2024 15:00 EST Telemedicine [facility] Hematology & Oncology [address] [address] Alisson Carreon MD [address] [place] [address], Level [address] [place] [phone] 05/04/2024 10:15 EST Ancillary Procedure [facility] Cardiology - [place] [address] 05/04/2024 11:30 EST Appointment [facility] Hematology & Oncology [address] 244781 05/04/2024 12:00 EST Appointment [facility] Hematology & Oncology - [address] [address] 06/12/2024 13:00 [facility] Radiology CT - [facility] [address] [place], [place] 592[address] documented as of this encounter Visit Diagnoses Not on filedocumented in this encounter Care Teams Cmo & President Relationship Specialty Start Date End Date Linda Blancas MD [facility] [address] [place] [address] PCP - General 01/06/11 Adolfo Carreno MD [address] [place] [address], [facility] [address] [place] [phone] General Surgery 04/26/19 Augustina Colin MD PhD [address] [place] [address], [facility] [address] [place] [phone] Medical Oncology 04/26/19 documented as of this encounter
--- OUTSIDE RECORDS SUMMARY | 2024-03-20 15:00 | XMS_ITS | Encounter Summary ---
Author Organization [facility] Address [address] [place] [address] Care Team Providers Care Janitorial Cleaner Name Role Phone Linda Blancas MD Primary Care Provider [phone] Adolfo Carreno MD Unavailable [phone] Augustina Colin MD PhD Unavailable Unavailable Reason for Referral * Radiology Services (Routine) - Closed Specialty Diagnoses / Procedures Referred By Contac t Referred To Contact Radiology Diagnoses Metastatic breast cancer Procedures MR HIP W WO CONTRAST LEFT Augustina Colin MD PhD Referral ID Status Reason Start Date Expiration Date Visits Re quested Visits Authorized [id number] Closed 02/21/2020 08/18/2020 1 1 Reason for Visit * Radiology Services (Routine) - Closed Specialty Diagnoses / Procedures Referred By Contac t Referred To Contact Radiology Diagnoses Metastatic breast cancer Procedures MR HIP W WO CONTRAST LEFT Augustina Colin MD PhD Referral ID Status Reason Start Date Expiration Date Visits Re quested Visits Authorized [id number] Closed 02/21/2020 08/18/2020 1 1 Encounter Details Date Type Department Care Team (Latest Contact Info) Description 03/06/2020 11:05 EDT - 03/06/2020 14:[address] Encounter [address] [facility] [address] [place], [place] [phone] Metastatic breast cancer (HCC-CMS) Discharge Disposition: Home [...] as needed. 12/07/2023 letrozole (FEMARA) 2.5 mg tabletIndications:Personeduarda price history of malignant neoplasm of breast,Breast [...] Appointment [facility] Interventional Radiology Unit [address] [place] [address] 04/02/2024 15:15 EDT Office Visit [facility] Surgical Oncology - [address] [phone] Adolfo Carreno MD [address] [place] [address] [phone] 04/05/2024 9:30 EDT Telemedicine [facility] Palliative Care Services [address] [place] [address] 847001 Chichi Woods MD [address] [place] [phone] 04/11/2024 15:00 EDT Telemedicine [facility] Hematology & Oncology - [address] [address] Alisson Carreon MD [address] [place] [address] [phone] 04/13/2024 13:30 EDT Appointment [facility] Hematology & Oncology - [address] [phone] 04/13/2024 14:00 EDT Appointment [facility] Hematology & Oncology - [address] [address] 04/16/2024 10:00 EST Telemedicine [facility] Palliative Care Services [address] [place] [address] [phone] Chichi Woods MD [address] [place] [address] [phone] 04/24/2024 9:00 EST Appointment [facility] Radiology CT Outpatient - [address] 353991 04/24/2024 11:00 EST Appointment [facility] Breast Imaging - [facility] S [place] 1 [place] [address] 04/27/2024 12:00 EST Appointment [facility] Hematology & Oncology - [address] [address] 05/02/2024 15:00 EST Telemedicine [facility] Hematology & Oncology [address] [phone] Alisson Carreon MD [address] [place] [address], [facility], Level [address] [place] [phone] 05/04/2024 10:15 EST Ancillary Procedure [facility] Cardiology - [address] [place] [address] 05/04/2024 11:30 EST Appointment [facility] Hematology & Oncology - [address] 748211 05/04/2024 12:00 EST Appointment [facility] Hematology & Oncology [address] 332261 06/12/2024 13:00 EST Appointment [facility] Radiology CT - [address] 935481 documented as of this encounter Procedures Procedure Name Priority Date/Time Associated Diagnosis Comments MR HIP W WO CONTRAST LEFT Routine 03/06/2020 12:20 EDT Metastatic breast cancer (HCC-CMS) documented in this encounter Results * MR HIP W [...] corresponds to fibrocystic changes/synovial herniation pits (Tyrese's pits). These can grow over time [...] changes/synovial herniation pits (Tyrese's pits) rather than metastasis, as described above [...] most likely corresponds to fibrocystic changes/synovial herniationpits (Gregg's pits). These can grow over time and [...] most likelycorresponds to fibrocystic changes/synovial herniation pits (Gregg's pits)rather than metastasis, as described above in [...] in imaging, 1 dose, Starting on Michelle 03/06/20 at 1220, Until Michelle 03/06/20 at 1220, Routine, Imaging Protocol Orders Given 03/06/2020 12:20 EDT 6.2 mmol documented in this encounter Care Teams Janitorial Cleaner Relationship Specialty Start Date End Date Linda Blancas MD [facility] [address] [place] [address] PCP - General 01/06/11 Adolfo Carreno MD [address] [place] [phone] General Surgery 04/26/19 Augustina Colin MD PhD [address] [place] [phone] Medical Oncology 04/26/19 documented as of this encounter
--- OUTSIDE RECORDS SUMMARY | 2024-03-20 15:01 | XMS_ITS | Encounter Summary ---
Author Organization [facility] Address [address] [place] [address] Care Team Providers Care Neon Light Installer Name Role Phone Linda Blancas MD Primary Care Provider [phone] Adolfo Carreno MD Unavailable [phone] Augustina Colin MD PhD Unavailable Unavailable Reason for Visit * Reason Comments Other Encounter Details Date Type Department Care Team (Late st Contact Info) Description 01/10/2020 Refill [facility] Hematology & Oncology - [facility] [address] [place] [address] Augustina Colin, PhD Other Social History Tobacco Use Types Packs/Day Years Used Date Smoking Tobacco: Never Smokeless Tobacco: Never Alcohol Use Standard Drinks/Week Comments Yes 1 (1 standard drink = 0.6 oz pur e alcohol) Sex and Gender Information Value Date Recorded Sex Assigned at Female 05/17/2019 15:31 EST Gender Identity Female 04/26/2019 13:08 EST Sexual Orientation Bisexual 08/26/2022 10 :47 EDT COVID-19 Exposure Response Date Recorded In the last month, have you been in contact with someone who was confirmed or suspected to have Coronavirus / COVID-19? No / Unsure 01/01/2020 11:41 EDT documented as of this encounter Functional [...] Dispensed Refills Start Date End Da te letrozole (FEMARA) 2.5 mg tabletIndications:Personal history of malignant neoplasm of breast,Breast lump TAKE 1 TABLET DAILY 90 Tab 3 01/10/2020 05/14/2020 documented in this encounter Miscellaneous Notes * Telephone Encounter - uQita Rob RN - 01/10/2020 0828 EDT Renewal prescription for letrozole has been processed through [facility]. Per the last office note, Continue letrozole 2.5 mg daily until after staging scans. documented in this encounter Plan of Treatment Upcoming Encounters Date Type Department Care Team (Late st Contact Info) Description 04/02/2024 10:30 EDT Appointment [facility] Interventional Radiology Unit [address] [place] [address] [phone] 04/02/2024 15:15 EDT Office Visit [facility] Surgical Oncology - [address] [phone] Adolfo Carreno MD 111 [facility], Level [address] [place] [phone] 04/05/2024 9:30 EDT Telemedicine [facility] Palliative Care Services [address] [place] [address] [phone] Chichi Woods MD 111 [facility], [address] [phone] 04/11/2024 15:00 EDT Telemedicine [facility] Hematology & Oncology - [address] [phone] Alisson Carreon MD [address] [place] [address] 2 [place] [phone] 04/13/2024 13:30 EDT Appointment [facility] Hematology & Oncology - [address] [phone] 04/13/2024 14:00 EDT Appointment [facility] Hematology & Oncology [address] [phone] 04/16/2024 10:00 EST Telemedicine [facility] - [facility] Palliative Care Services [address] [place] [address] [phone] Chichi Woods MD [address] [place] [address] [phone] 04/24/2024 9:00 EST Appointment [facility] Radiology CT Outpatient - [address] [phone] 04/24/2024 11:00 EST Appointment [facility] Breast Imaging - [address] [phone] 04/27/2024 12:00 EST Appointment [facility] Hematology & Oncology - [address] [phone] 05/02/2024 15:00 EST Telemedicine [facility] Hematology & Oncology - [address] [phone] Alisson Carreon MD [address] [place] [address], [facility] [address] [place] [phone] 05/04/2024 10:15 EST Ancillary Procedure [facility] Cardiology - [address] [place] [address] 05/04/2024 11:30 EST Appointment [facility] Hematology & Oncology [address] [phone] 05/04/2024 12:00 EST Appointment [facility] Hematology & Oncology [address] [address] 06/12/2024 13:00 EST Appointment [facility] Radiology CT - [address] [address] documented as of this encounter Visit Diagnoses Diagnosis Personal history of malignant neoplasm of breast Breast lump Lump or mass in breast documented in this encounter Discontinued Medications Medication Sig Discontinue Reason Start Date End Da te letrozole (FEMARA) 2.5 mg tabletIndications:Person al history of malignant neoplasm of breast,Breast lump TAKE 1 TABLET DAILY 01/15/2019 0 documented as of this encounter Care Teams Neon Light Installer Relationship Specialty Start Date End Date Linda Blancas MD [facility] [address] [place] [address] PCP - General 01/06/11 Adolfo Carreno MD [address] [place] [phone] General Surgery 04/26/19 Augustina Colin MD PhD [address] [place] [address] 2 [place] [phone] Medical Oncology 04/26/19 documented as of this encounter
--- OUTSIDE RECORDS SUMMARY | 2024-03-20 15:01 | XMS_ITS | Encounter Summary ---
Author Organization [facility] Address [address] [place] [address] Care Team Providers Care Ragman Name Role Phone Linda Blancas MD Primary Care Provider [phone] Adolfo Carreno MD Unavailable [phone] Augustina Colin MD PhD Unavailable Unavailable [...] Expiration Date Visits Re quested Visits Authorized [id number] Closed 01/04/2020 07/01/2020 1 1 Reason for Visit * Reason Comments Follow-up Encounter Details Date Type Department Care Team (Late st Contact Info) Description 09/12/2019 13:00 EDT Telemedicine [facility] Hematology & Oncology - [place] [address] [place], [place] 880[address] Augustina Colin, PhD Malignant neoplasm of right [...] Progress Notes * Augustina Colin MD - 09/12/2019 1300 EDT REASON FOR OFFICE VISIT: Evaluation of side effects while receiving letrozole ?? I am conducting today's visit by telephone due to the COVID-19 pandemic, and by [facility] to minimize patient exposure to our medical center. All patients who have routine follow up visits or are not on active cancer treatments will have visits postponed for an appropriate interval (as decided by the physician) or these visits may be offeredby telemedicine or phone consultation. This consultation has been reviewed by appropriate clinical staff and has been deemed appropriate for a phone consultation. The patient consents to a phone visit, is at home/work, and I, their MD, am in a private area. Time of telemedicine initiation: 12:56 Time of telemedicine conclusion: PROBLEM LIST: 1. 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 a. ??Ultrasound performed in [place]??identifying an irregular heterogeneous soft tissue mass measuring 1.2 x 1.2 x 1.5 cm. ?? 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 ??HER-2 1+ by IHC. ??ANNE MARIE revealed [...] mouth sores. ??Discontinued palbociclib Mar 2018 ??f. 07/07/17 underwent excision of right breast tumor/revision and placement of tissue process control specialist. ??1.9 cm tumor at time of surgery, well differentiated, with LVI present, and negative margins. ?? 2. ??Restaging scans: ??CT scan of the chest completed 05/17/19 stable?pulmonary nodules, stable mildly enlarged subcarinal LN;??nuclear bone scan??with??no osseous metastasis (11/07/18) 3. ??DCIS in 2004 at the age [...] osteopenia hips A. Zoledronic acid initiated May 2019 7. ??Other chronic health issues: ??gastroesophageal reflux disease. ?? SUBJECTIVE: Ms Eldridge is receiving a telemedicine visit today to discuss side effects relatedto letrozole. Continues to see Dr Carreno. She has some hot flashes but they are not interrupting with her function. She has no new joint aches or discomfort. For now her plastic surgery is still scheduled for October. She is anticipating that this will be delayed. ROS: A 10 point review of systems was obtained. Other than described in the subjective she notes nomedical related concerns or issues. The review of systems is negative Medications Prior to Today's Visit Medication Sig [...] FORMULA ORAL) Take by mouth daily. ??? mv-mn/C/glutamin/lysin/[id number] (AIR[place]ORNE, ASCORBATE SODIUM, ORAL) Take by mouth [...] - 3 Glasses of wine per week Continues to be active. Objective: There were no vitals taken for this visit. Estimated body mass index is 25.54 kg/m?? as calculated from the following: Height as of 05/07/19: 156.2 cm (61.5). Weight as of 06/04/19: 62.3 kg (137 lb 6.4 oz). ECOG Performance Status: 0 General: Comfortable, cooperative and in no apparent distress NEURO: Alert and oriented x 3; DIAGNOSTIC DATA No visits with results within 1 Day(s) from this visit. Latest known visit with results is: Hospital Outpatient Visit on 06/04/2019 Component Date Value Ref Range Status ??? WBC 06/04/2019 6.28 4.00 - 12.40 K/cmm Final ??? RBC 06/04/2019 4.15 3.86 - 5.04 M/cmm Final ??? Hemoglobin 06/04/2019 13.5 11.6 - 15.2 gm/dL Final ??? HCT 06/04/2019 39.7 34.9 - 44.4 % Final ??? MCV 06/04/2019 96 81 - 98 fl Final ??? MCH 06/04/2019 32.5 26.7 - 33.3 pg Final ??? MCHC 06/04/2019 34.0 32.1 - 35.9 gm/dL Final ? ? RDW-CV 06/04/2019 11.7 <14.7 % Final ? ? RDW-SD 06/04/2019 40.9 <50.4 fl Final ??? PLT 06/04/2019 289 141 - 377 K/cmm Final ??? MPV 06/04/2019 10.2 9.5 - 12.7 fl Final ??? Neutrophils 06/04/2019 55.4 % Final ??? Lymphocytes 06/04/2019 34.6 % Final ??? Monocytes 06/04/2019 7.8 % Final ??? Eosinophils 06/04/2019 1.3 % Final ??? Basophils 06/04/2019 0.6 % Final ??? Immature Grans 06/04/2019 0.3 % Final ??? Absolute Neutrophils 06/04/2019 3.48 2.20 - 8.85 K/cmm Final ??? Absolute Lymphocytes 06/04/2019 2.17 1.09 - 3.30 K/cmm Final ??? Absolute Monocytes 06/04/2019 0.49 0.10 - 0.80 K/cmm Final ??? Absolute Eosinophils 06/04/2019 0.08 0.03 - 0.61 K/cmm Final ??? Absolute Basophils 06/04/2019 0.04 0.01 - 0.11 K/cmm Final ??? Absolute Immature Grans 06/04/2019 0.02 0.00 - 0.06 K/cmm Final ??? Type of Differential: 06/04/2019 Auto Final ??? Phosphorus 06/04/2019 4.5 2.5 - 4.5 mg/dL Final ??? Sodium 06/04/2019 138 136 - 145 mEq/L Final ??? Potassium 06/04/2019 3.9 3.5 - 5.0 mEq/L Final ??? Chloride 06/04/2019 101 96 - 110 mEq/L Final ??? CO2 Total 06/04/2019 29 22 - 32 mEq/L Final ??? Glucose 06/04/2019 124* 70 - 100 mg/dL Final ??? BUN 06/04/2019 17 10 - 26 mg/dL Final ??? Creatinine 06/04/2019 0.64 0.52 - 1.04 mg/dL Final ? ? eGFR 06/04/2019 99 >60 mL/min/1.73m2 Final eGFR calculated using CKD-EPI equation for non- Americans. Multiply eGFR by 1.16 for AfricanAmerican patients. ??? Total Protein 06/04/2019 7.3 6.3 - 8.2 g/dL Final ??? Albumin 06/04/2019 4.3 3.4 - 4.9 g/dL Final ??? Alkaline Phosphatase 06/04/2019 154* 38 - 126 U/L Final ??? AST 06/04/2019 78* 15 - 46 U/L Final ? ? ALT 06/04/2019 127* <35 U/L Final ? ? Bilirubin, Total 06/04/2019 <0.5 <1.4 mg/dL Final ??? Calcium 06/04/2019 9.9 8.5 - 10.5 mg/dL Final ??? Calculated Calcium 06/04/2019 9.7 8.5 - 10.5 mg/dL Final ??? Magnesium 06/04/2019 2.1 1.7 - 2.8 mg/dL Final ASSESSMENT: ??Ms Bernstein is a 58-year-old female with metastatic breast cancer.?? The largestarea of disease on the ??lateral aspect of the breast was removed at the time of implant removal.?She took the palbociclib for short time but has continued on letrozole. ??Her tumor marker remainswithin normal ranges. ??She had a bone density scan recently that indicated some loss of bone density. ??Given that she has estrogen receptor positive disease we will plan to initiate zometa. Zometa has data suggesting decreased risk of development of bone metastasis as well. She will receive Zometa twice a year. She is already discussed initiating a bone strengthening agent with her dentist. ? PLAN: 1. Continue letrozole 2.5 mg daily. ?? 2.??Next restaging scans November 2019 (chest??CT)? 3. ??Zometa in November 2019 4. Continued follow-up with Dr. Carreno 5. ??Follow-up return 3 months after restaging scans ? Patient is encouraged call with any intercurrent concerns or problems. I spent a total of 20 minutes with Sunshine Pleitez today and 20 minutes of that time was spent in counseling and coordination of care as described in the progress note. Augustina Colin MD 09/11/2019 15:21 documented in this encounter Plan of Treatment Upcoming Encounters Date Type Department Care Team (Late st Contact Info) Description 04/02/2024 10:30 EDT Appointment [facility] Interventional Radiology Unit [address] [place] [address] [phone] 04/02/2024 15:15 EDT Office Visit [facility] Surgical Oncology - [address] [phone] Adolfo Carreno MD [address] [place] [address] [phone] 04/05/2024 9:30 EDT Telemedicine [facility] Palliative Care Services [address] [place] [address] [phone] Chichi Woods MD [address] [place] [address] [phone] 04/11/2024 15:00 EDT Telemedicine [facility] Hematology & Oncology [address] [phone] Alisson Carreon MD [address] [place] [address] [phone] 04/13/2024 13:30 EDT Appointment [facility] Hematology & Oncology [address] [phone] 04/13/2024 14:00 EDT Appointment [facility] Hematology & Oncology [address] [phone] 04/16/2024 10:00 EST Telemedicine [facility] Palliative Care Services [address] [place] [address] [phone] Chichi Woods MD [address] [place] [address] [phone] 04/24/2024 9:00 EST Appointment [facility] Radiology CT Outpatient - [address] [address] 04/24/2024 11:00 EST Appointment [facility] Breast Imaging - [facility] [address] [place] [address] [place] [address] 04/27/2024 12:00 EST Appointment [facility] Hematology & Oncology - [address] [address] 05/02/2024 15:00 EST Telemedicine [facility] Hematology & Oncology [address] [phone] Alisson Carreon MD [address] [place] [address], Level 2 [place] [phone] 05/04/2024 10:15 EST Ancillary Procedure [facility] Cardiology - [place] [address] 05/04/2024 11:30 EST Appointment [facility] Hematology & Oncology [address] [address] 05/04/2024 12:00 EST Appointment [facility] Hematology & Oncology [address] [phone] 06/12/2024 13:00 EST Appointment [facility] Radiology CT - [address] [phone] documented as of this encounter Results * CT CHEST W CONTRAST (01/18/2020 12:11 EDT) Anatomical Region Laterality Modality Chest Computed Tomogra phy 01/18/2020 13:0 9 EDT Impressions 01/18/2020 13:09 EDT 1. Enlarging left cervical lymph node with otherwise no lymph node enlargement. 2. Multiple new tiny upper zone nodules are likely inflammatory rather than metastatic. Recommend 3-6 month follow-up 3. Interval removal of right breast process control specialist and placement of implant Narrative 01/18/2020 13:[address] CHEST W CONTRAST ??01/18/2020 1:00 PM Clinical History/Comments: Breast, neoplasm Technique: A single breath-hold helical [...] a dedicated PACS workstation for analysis. Comparison: 05/17/2019 and 10/30/2018 Findings: CT of the chest performed after IV contrast administration. Lower neck: A previously stable lower left cervical lymph node has enlarged from 7 mm to 9 mm in short axis diameter. Otherwise unremarkable Mediastinum: No significant abnormality Pleura: No abnormality Lungs: There are numerous small 5 mm and smaller new nodules in both upper lobes and superior segments of the lower lobes. Many of these are clearly within airways and the distribution strongly favors an inflammatory etiology rather than metastatic disease. Previously new upper lobe tiny nodules are stable. Upper abdomen (limited to upper abdomen, not optimized for abdominal imaging):For a discussion of findings in the abdomen, please refer to the report of the dedicated abdominal CT from today. Bones and soft tissues of the chest wall: The patient has had bilateral mastectomy with implants. Since the prior study, right breast process control specialist has been removed and an implant placed. Degenerative disease is present at the cervicothoracic junction and at L1-L2 where there is also mild retrolisthesis of L1. No skeletal metastases are identified. Procedure Note Lewis Cooley MD - 01/18/2020 CT CHEST W CONTRAST 01/18/2020 1:00 PM Clinical History/Comments: Breast, neoplasm Technique: A single breath-hold helical [...] a dedicated PACS workstation for analysis. Comparison: 05/17/2019 and 10/30/2018 Findings: CT of the chest performed after IV contrast administration. Lower neck: A previously stable lower left cervical lymph node hasenlarged from 7 mm to 9 mm in short axis diameter. Otherwiseunremarkable Mediastinum: No significant abnormality Pleura: No abnormality Lungs: There are numerous small 5 mm and smaller new nodules in both upperlobes and superior segments of the lower lobes. Many of these are clearlywithin airways and the distribution strongly favors an inflammatoryetiology rather than metastatic disease. Previously new upper lobe tinynodules are stable. Upper abdomen (limited to upper abdomen, not optimized for abdominalimaging):For a discussion of findings in the abdomen, please refer to thereport of the dedicated abdominal CT from today. Bones and soft tissues of the chest wall: The patient has had bilateralmastectomy with implants. Since the prior study, right breast process control specialist hasbeen removed and an implant placed. Degenerative disease is present at thecervicothoracic junction and at L1-L2 where there is also mildretrolisthesis of L1. No skeletal metastases are identified. IMPRESSION 1. Enlarging left cervical lymph node with otherwise no lymph nodeenlargement. 2. Multiple new tiny upper zone nodules are likely inflammatory ratherthan metastatic. Recommend 3-6 month follow-up 3. Interval removal of right breast process control specialist and placement of implant Augustina Colin MD PhD IMG CT ORDERABLES documented in this encounter Visit Diagnoses Diagnosis Malignant neoplasm of right female breast, unspecified estrogen receptor status, unspecified site of breast (HCC-CMS)- Primary Malignant neoplasm of right female breast, unspecified estrogen receptor status, unspecified site of breast (HCC-CMS) Metastatic breast cancer documented in this encounter Care Teams Ragman Relationship Specialty Start Date End Date Linda Blancas MD [address] [place] [address] 30 [place], [place] [phone] PCP - General 01/06/11 Adolfo Carreno MD [address] [place] [address] 2 [place] [phone] General Surgery 04/26/19 Augustina Colin MD PhD [address] [place] [address] 2 [place] [phone] Medical Oncology 04/26/19 documented as of this encounter
--- OUTSIDE RECORDS SUMMARY | 2024-03-20 15:01 | XMS_ITS | Encounter Summary ---
Author Organization [facility] Address [address] [place] [address] Care Team Providers Care Employment Service Specialist Name Role Phone Linda Blancas MD Primary Care Provider [phone] Adolfo Carreno MD Unavailable [phone] Augustina Colin MD PhD Unavailable Unavailable Encounter Details Date Type Department Care Team (Late st Contact Info) Description 07/30/2019 10:45 EST Ancillary Procedure [facility] Surgical Oncology - [facility] [address] [place] [address] Social History Tobacco Use Types Packs/Day Years [...] [facility] [address] [place] [address] [phone] 04/02/2024 15:15 EDT Office Visit [facility] Surgical Oncology - [address] [phone] Adolfo Carreno MD [address] [place] [address] [phone] 04/05/2024 9:30 EDT Telemedicine [facility] Palliative Care Services [address] [place] [address] [phone] Chichi Woods MD [address] [place] [address] [phone] 04/11/2024 15:00 EDT Telemedicine [facility] Hematology & Oncology [address] [phone] Alisson Carreon MD [address] [place] [address] [phone] 04/13/2024 13:30 EDT Appointment [facility] Hematology & Oncology [address] [id number] 04/13/2024 14:00 EDT Appointment [facility] Hematology & Oncology [address] [phone] 04/16/2024 10:00 EST Telemedicine [facility] Palliative Care Services [address] [place] [address] [phone] Chichi Woods MD [address] [place] [address], [address] [phone] 04/24/2024 9:00 EST Appointment [facility] Radiology CT Outpatient - [address] [id number] 04/24/2024 11:00 EST Appointment [facility] Breast Imaging - [address] [phone] 04/27/2024 12:00 EST Appointment [facility] Hematology & Oncology - [address] [phone] 05/02/2024 15:00 EST Telemedicine [facility] Hematology & Oncology [address] [phone] Alisson Carreon MD [address] [place] [address], [facility], Level [address] [place] [phone] 05/04/2024 10:15 EST Ancillary Procedure [facility] Cardiology - [address] [place] [address] 05/04/2024 11:30 EST Appointment [facility] Hematology & Oncology [address] [id number] 05/04/2024 12:00 EST Appointment [facility] Hematology & Oncology - [address] [phone] 06/12/2024 13:00 EST Appointment [facility] Radiology CT - [address] [phone] documented as of this encounter Procedures Procedure Name Priority Date/Time Associated Diagnosis Comments [facility] BREAST - [facility] ONLY Routine 07/30/2019 15:58 EST documented in this encounter Results * [facility] - [facility] ONLY (07/30/2019 15:58 EST) Narrative [facility] - 07/30/2019 15:58 EST This is a non-reportable exam. Adolfo Carreno MD IMG US POC ORDERABLE S [facility] documented in this encounter Visit Diagnoses Not on filedocumented in this encounter Care Teams Employment Service Specialist Relationship Specialty Start Date End Date Linda Blancas MD [facility] [address] [place] [address] PCP - General 01/06/11 Adolfo Carreno MD [address] [place] [address], [facility] 2 [place] [phone] General Surgery 04/26/19 Augustina Colin MD PhD [address] [place] [address], [facility] 2 [place] [phone] Medical Oncology 04/26/19 documented as of this encounter
--- OUTSIDE RECORDS SUMMARY | 2024-03-20 15:01 | XMS_ITS | Encounter Summary ---
Author Organization [facility] Address [address] [place] [address] Care Team Providers Care Licensed Mental Health Professional Name Role Phone Linda Blancas MD Primary Care Provider [phone] Adolfo Carreno MD Unavailable [phone] Augustina Colin MD PhD Unavailable Unavailable Encounter Details Date Type Department Care Team (Latest Contact Info) Description 01/14/2020 Travel Social History Tobacco Use Types Packs/Day [...] have Coronavirus / COVID-19? No / Unsure 01/14/2020 11:58 EDT documented as of this encounter Functional [...] [facility] Interventional Radiology Unit [address] [place] [address] [phone] 04/02/2024 15:15 EDT Office Visit [facility] Surgical Oncology - [address] [phone] Adolfo Carreno MD [address] [place] [address] 2 [place] [phone] 04/05/2024 9:30 EDT Telemedicine [facility] - [facility] Palliative Care Services [address] [place] [address] [phone] Chichi Woods MD [address] [place] [address] [phone] 04/11/2024 15:00 EDT Telemedicine [facility] Hematology & Oncology [address] [place] [address] 107511 Alisson Carreon MD [address] [place] [address] [phone] 04/13/2024 13:30 EDT Appointment [facility] Hematology & Oncology [address] [place] [address] [phone] 04/13/2024 14:00 EDT Appointment [facility] Hematology & Oncology [address] [place] [address] [phone] 04/16/2024 10:00 EST Telemedicine [facility] - [facility] Palliative Care Services [address] [place] [address] [phone] Chichi Woods MD [address] [place] [address], [address] [phone] 04/24/2024 9:00 EST Appointment [facility] Radiology CT Outpatient - [address] [phone] 04/24/2024 11:00 EST Appointment [facility] Breast Imaging - [facility] [place] [address] [place], [place] [phone] 04/27/2024 12:00 EST Appointment [facility] Hematology & Oncology - [address] [phone] 05/02/2024 15:00 EST Telemedicine [facility] Hematology & Oncology - [address] 878201 Alisson Carreon MD [address] [place] [address], Level 2 [place] [phone] 05/04/2024 10:15 EST Ancillary Procedure [facility] Cardiology [place] [address] [place] [address] 05/04/2024 11:30 EST Appointment [facility] Hematology & Oncology - [address] [phone] 05/04/2024 12:00 EST Appointment [facility] Hematology & Oncology [address] [place] [address] [phone] 06/12/2024 13:00 EST Appointment [facility] Radiology CT - [address] [phone] documented as of this encounter Visit Diagnoses Not on filedocumented in this encounter Care Teams Licensed Mental Health Professional Relationship Specialty Start Date End Date Linda Blancas MD [facility] [address] [place] [address] PCP - General 01/06/11 Adolfo Carreno MD [address] [place] [address] 2 [place] [phone] General Surgery 04/26/19 Augustina Colin MD PhD [address] [place] [address], [facility] 2 [place] [address] Medical Oncology 04/26/19 documented as of this encounter
--- OUTSIDE RECORDS SUMMARY | 2024-03-20 15:01 | XMS_ITS | Encounter Summary ---
Author Organization [facility] Address [address] [place] [address] Care Team Providers Care Oil Burner Repairer Name Role Phone Linda Blancas MD Primary Care Provider [phone] Adolfo Carreno MD Unavailable [phone] Augustina Colin MD PhD Unavailable Unavailable Reason for Visit * Reason Comments Post-OP Follow Up left breast implant exchange, right breasr recon Encounter Details Date Type Department Care Team (Latest Contact Info) Description 07/11/2019 13:00 EST Post-op Visit [facility] Plastic, Reconstructive & Cosmetic Surgery - [address], [address] [place] [address] Tylor Boss MD [address] [phone] Surgery follow-up (Primary Dx) Social History [...] encounter Progress Notes * Tylor Boss MD - 07/11/2019 1300 EST Sendy follows up after her 04/26/2019 removal of right tissue drafter structural and placement of silicone implant and exchange of her previous left silicone implant to a larger implant for matching. She is very pleased with her results as am I. Signs and symptoms of infection / complications were discussed. Patient knows to call for questions or concerns. Will follow up 6 months from the DOS. documented in this encounter Plan of Treatment Upcoming Encounters Date Type Department Care Team (Late st Contact Info) Description 04/02/2024 10:30 EDT Appointment [facility] Interventional Radiology Unit [address] [place] [address] [phone] 04/02/2024 15:15 EDT Office Visit [facility] Surgical Oncology - [address] [phone] Adolfo Carreno MD [address] [facility], Level 2 [place] [phone] 04/05/2024 9:30 EDT Telemedicine [facility] Palliative Care Services [address] [place] [address] [phone] Chichi Woods MD 111 [facility], [address] [phone] 04/11/2024 15:00 EDT Telemedicine [facility] Hematology & Oncology - [address] [phone] Alisson Carreon MD [address] [place] [address] 2 [place] [phone] 04/13/2024 13:30 EDT Appointment [facility] Hematology & Oncology - [address] [phone] 04/13/2024 14:00 EDT Appointment [facility] Hematology & Oncology [address] [phone] 04/16/2024 10:[address] [facility] - [facility] Palliative Care Services [address] [place] [address] [phone] Chichi Woods MD [address] [place] [address] [phone] 04/24/2024 9:00 EST Appointment [facility] Radiology CT Outpatient - [address] [phone] 04/24/2024 11:00 EST Appointment [facility] Breast Imaging - [address] 590011 04/27/2024 12:00 EST Appointment [facility] Hematology & Oncology - [address] [phone] 05/02/2024 15:00 EST Telemedicine [facility] Hematology & Oncology - [address] [phone] Alisson Carreon MD [address] [place] [address], [facility] 2 [place] [phone] 05/04/2024 10:15 EST Ancillary Procedure [facility] Cardiology - [address] [place] [address] 05/04/2024 11:30 EST Appointment [facility] Hematology & Oncology [address] [address] 05/04/2024 12:00 EST Appointment [facility] Hematology & Oncology [address] [address] 06/12/2024 13:00 EST Appointment [facility] Radiology CT - [address] [phone] documented as of this encounter Visit Diagnoses Diagnosis Surgery follow-up- Primary Follow-up examination, following unspecified surgery documented in this encounter Care Teams Oil Burner Repairer Relationship Specialty Start Date End Date Linda Blancas MD [address] [place] [address] 30 [place] [address] PCP - General 01/06/11 Adolfo Carreno MD [address] [place] [address], [facility] 2 [place] [phone] General Surgery 04/26/19 Augustina Colin MD PhD [address] [place] [address] 2 [place] [address] Medical Oncology 04/26/19 documented as of this encounter
--- OUTSIDE RECORDS SUMMARY | 2024-03-20 15:01 | XMS_ITS | Encounter Summary ---
Author Organization [facility] Address [address] [place] [address] Care Team Providers Care Precision Grinder External Name Role Phone Linda Blancas MD Primary Care Provider [phone] Adolfo Carreno MD Unavailable Augustina Colin MD PhD Unavailable Unavailable Encounter Details Date Type Department Care Team (Late st Contact Info) Description 06/02/2019 Orders Only [facility] Plastic, Reconstructive & Cosmetic Surgery - [address], [address] [place] [address] Gayle Roach MD [address] [facility] [address] [place] [address] Social History Tobacco Use Types Packs/Day Years [...] Start Date End Da te ondansetron (ZOFRAN-ODT) 4 mg disintegrating tablet Take 1 Tab by mouth every 8 hours as needed for Nausea. 20 Tab 1 06/02/2019 09/08/2020 documented in this encounter Plan of Treatment Upcoming Encounters Date Type Department Care Team (Late st Contact Info) Description 04/02/2024 10:30 EDT Appointment [facility] Interventional Radiology Unit [address] [place] [address] [phone] 04/02/2024 15:15 EDT Office Visit [facility] Surgical Oncology - [address] [phone] Adolfo Carreno MD [address] [place] [address] 2 [place] [phone] 04/05/2024 9:30 EDT Telemedicine [facility] Palliative Care Services [address] [place], [place] [phone] Chichi Woods MD [address] [place] [address], [address] [phone] 04/11/2024 15:00 EDT Telemedicine [facility] Hematology & Oncology - [address] [phone] Alisson Carreon MD [address] [place] [address] 2 [place] [phone] 04/13/2024 13:30 EDT Appointment [facility] Hematology & Oncology [address] [phone] 04/13/2024 14:00 EDT Appointment [facility] Hematology & Oncology [address] [address] 04/16/2024 10:00 EST Telemedicine [facility] - [facility] Palliative Care Services [address] [place] [address] [phone] Chichi Woods MD [address] [place] [address] [phone] 04/24/2024 9:00 EST Appointment [facility] Radiology CT Outpatient - [address] [id number] 04/24/2024 11:00 EST Appointment [facility] Breast Imaging - [facility] [address] 248151 04/27/2024 12:00 EST Appointment [facility] Hematology & Oncology [address] 633661 05/02/2024 15:00 EST Telemedicine [facility] Hematology & Oncology [address] 171551 Alisson Carreon MD [address] [place] [address], Level [address] [place] [phone] 05/04/2024 10:15 EST Ancillary Procedure [facility] Cardiology [place] [address] [place] [address] 05/04/2024 11:30 EST Appointment [facility] Hematology & Oncology [address] 100451 05/04/2024 12:00 EST Appointment [facility] Hematology & Oncology - [address] 308760 [phone] 06/12/2024 13:00 [facility] Radiology CT - [facility] [address] [place], [place] 314871 documented as of this encounter Visit Diagnoses Not on filedocumented in this encounter Care Teams Precision Grinder External Relationship Specialty Start Date End Date Linda Blancas MD [facility] [address] [place] [address] PCP - General 01/06/11 Adolfo Carreno MD [address] [place] [address], [facility] 2 [place] [phone] General Surgery 04/26/19 Augustina Colin MD PhD [address] [place] [address], [facility] 2 [place] [phone] Medical Oncology 04/26/19 documented as of this encounter
--- OUTSIDE RECORDS SUMMARY | 2024-03-20 15:01 | XMS_ITS | Encounter Summary ---
Author Organization [facility] Address [address] [place] [address] Care Team Providers Care Rn Integrated Name Role Phone Linda Blancas MD Primary Care Provider [phone] Adolfo Carreno MD Unavailable Augustina Colin MD PhD Unavailable Unavailable Reason for Referral * Radiology Services (Routine) - Closed Specialty Diagnoses / Procedures Referred By Contac t Referred To Contact Diagnoses Metastatic breast cancer Procedures CT ABDOMEN PELVIS W CONTRAST Augustina Colin MD PhD Referral ID Status Reason Start Date Expiration Date Visits Re quested Visits Authorized [id number] Closed 01/04/2020 07/01/2020 1 1 * Radiology Services (Routine) - Closed Specialty Diagnoses / Procedures Referred By Contac t Referred To Contact Diagnoses Malignant neoplasm of right female breast, unspecified estrogen receptor status, unspecified site of breast (HCC-CMS) Procedures CT CHEST W CONTRAST Augustina Colin MD PhD Referral ID Status Reason Start Date Expiration Date Visits Re quested Visits Authorized [id number] Closed 01/04/2020 07/01/2020 1 1 Reason for Visit * Radiology Services (Routine) - Closed Specialty Diagnoses / Procedures Referred By Contac t Referred To Contact Diagnoses Malignant neoplasm of right female breast, unspecified estrogen receptor status, unspecified site of breast (HCC-CMS) Procedures CT CHEST W CONTRAST Augustina Colin MD PhD Referral ID Status Reason Start Date Expiration Date Visits Re quested Visits Authorized [id number] Closed 01/04/2020 07/01/2020 1 1 Encounter Details Date Type Department Care Team (Latest Contact Info) Description 01/18/2020 10:31 EDT - 01/18/2020 23:59 EDT Hospital Encounter [facility] Radiology CT Outpatient - [address] [address] Malignant neoplasm of right female breast, unspecified estrogen receptor status, unspecified site of breast (HCC-CMS); Metastatic breast cancer ([facility] Discharge Disposition: Home or Self Care Social [...] [facility] Interventional Radiology Unit [address] [place] [address] [phone] 04/02/2024 15:15 EDT Office Visit [facility] Surgical Oncology [address] 504331 Adolfo Carreno MD [address] [place] [address] [phone] 04/05/2024 9:30 EDT Telemedicine [facility] Palliative Care Services [address] [place] [address] [phone] Chichi Woods MD [address] [place] [address] [phone] 04/11/2024 15:00 EDT Telemedicine [facility] Hematology & Oncology [address] [phone] Alisson Carreon MD [address] [place] [address] [phone] 04/13/2024 13:30 EDT Appointment [facility] Hematology & Oncology [address] 103871 04/13/2024 14:00 EDT Appointment [facility] Hematology & Oncology [address] [phone] 04/16/2024 10:00 EST Telemedicine [facility] Pall[facility] Care Services [address] [place], [place] 542571 Chichi Woods MD [address] [place] [address], [address] [phone] 04/24/2024 9:00 EST Appointment [facility] Radiology CT Outpatient - [address] 730321 04/24/2024 11:00 EST Appointment [facility] Breast Imaging - [facility] 1 [place], [place] 567161 04/27/2024 12:00 EST Appointment [facility] Hematology & Oncology - [address] 827291 05/02/2024 15:00 EST Telemedicine [facility] Hematology & Oncology - [address] 700141 Alisson Carreon MD [address] [place] [address], Level 2 [place] [phone] 05/04/2024 10:15 EST Ancillary Procedure [facility] Cardiology - [address] [place] [address] 05/04/2024 11:30 EST Appointment [facility] Hematology & Oncology - [address] [address] 05/04/2024 12:00 EST Appointment [facility] Hematology & Oncology - [address] [phone] 06/12/2024 13:00 EST Appointment [facility] Radiology CT - [address] [phone] documented as of this encounter Procedures Procedure Name Priority Date/Time Associated Diagnosis Comments CT CHEST W CONTRAST Routine 01/18/2020 1 2:11 EDT Malignant neoplasm of right female breast, unspecified estrogen receptor status, unspecified site of breast (HCC-CMS) CT ABDOMEN PELVIS W CONTRAST Routine 01/18/2020 12:11 EDT Metastatic breast cancer (HCC-CMS) documented in this encounter Results * CT ABDOMEN PELVIS W CONTRAST (01/18/2020 12:11 EDT) Anatomical Region Laterality Modality Body, Abdomen, Pelvis, Abdomen and Pelvis Computed Tomography 01/18/2020 14:3 3 EDT Impressions 01/18/2020 14:33 EDT 1. New tiny hypoattenuating lesion within the liver. Recommend further characterization with MRI in 1 month. No other solid organ lesions or lymphadenopathy in the abdomen or pelvis. 2. Fibroid uterus. 3. Diverticulosis. I have personally reviewed the images and the above interpretation and agree with the findings. Narrative 01/18/2020 14:[address] ABDOMEN PELVIS W CONTRAST ??01/18/2020 1:00 PM Signs and Symptoms/Comments: ?? Abdomen, neoplasm Technique: CT of the abdomen and pelvis was performed following the administration intravenous contrast; coronal and sagittal multiplanar reconstructions generated. Comparison: CT abdomen from October 27, 2016 Findings: Lower chest: Please refer to dedicated chest CT from same day for full detail of intrathoracic findings. Hepatobiliary: Subcapsular 0.5 cm hypoattenuating ill-defined lesion on axial image #51 in segment 2 is new compared to prior. Segment 2 tiny subcapsular lesion on axial image #34 and segment 4 tiny lesion on axial image #36 are unchanged. There is also an ill-defined area of diminished hypoattenuation along the falciform ligament at the left lobe anterior aspect appears grossly unchanged from prior CT. There are no other focal hepatic lesions. There is no biliary dilatation. Gallbladder is unremarkable. Spleen, pancreas, adrenal glands: Spleen enhances homogenously with no focal masses seen. There is no pancreatic masses and no pancreatic ductal dilatation. The adrenal glands are unremarkable. Kidneys, ureters, bladder: Kidneys enhance symmetrically. There is no urolithiasis. There is no hydroureteronephrosis. The ureters are normal in caliber and course. The bladder is grossly unremarkable. Uterus, ovaries: An irregular contour uterus with a circumscribed 2.5 cm calcified mass consistent with a leiomyoma. No adnexal masses Bowel: No evidence of bowel obstruction no acute inflammation. Colonic diverticulosis. The appendix is visualized and is normal. Peritoneal cavity / Subperitoneal space: No peritoneal or omental thickening. There is no free air or free fluid. Lymphovascular: No pathologically enlarged lymph nodes. Scattered atherosclerosis of the aorta and its branch vessels without aneurysm. Abdominal wall: No bowel containing hernia. Musculoskeletal: No suspicious osseous lesions identified. L3-S1 posterior decompression and fusion. Multilevel degenerative disc disease with degenerative grade 1 retrolisthesis of L1 on L2. No evidence of pressure deformity. Practical Nursing Instructor: No additional findings. Procedure Note Richard Antonio MD - 01/18/2020 CT ABDOMEN PELVIS W CONTRAST 01/18/2020 1:00 PM Signs and Symptoms/Comments: Abdomen, neoplasm Technique: CT of the abdomen and pelvis was performed following the administrationintravenous contrast; coronal and sagittal multiplanar reconstructionsgenerated. Comparison: CT abdomen from October 27, 2016 Findings: Lower chest: Please refer to dedicated chest CT from same day for fulldetail of intrathoracic findings. Hepatobiliary: Subcapsular 0.5 cm hypoattenuating ill-defined lesion onaxial image #51 in segment 2 is new compared to prior. Segment 2 tinysubcapsular lesion on axial image #34 and segment 4 tiny lesion on axialimage #36 are unchanged. There is also an ill-defined area of diminishedhypoattenuation along the falciform ligament at the left lobe anterioraspect appears grossly unchanged from prior CT. There are no other focalhepatic lesions. There is no biliary dilatation. Gallbladder isunremarkable. Spleen, pancreas, adrenal glands: Spleen enhances homogenously with nofocal masses seen. There is no pancreatic masses and no pancreatic ductaldilatation. The adrenal glands are unremarkable. Kidneys, ureters, bladder: Kidneys enhance symmetrically. There is nourolithiasis. There is no hydroureteronephrosis. The ureters are normal incaliber and course. The bladder is grossly unremarkable. Uterus, ovaries: An irregular contour uterus with a circumscribed 2.5 cmcalcified mass consistent with a leiomyoma. No adnexal masses Bowel: No evidence of bowel obstruction no acute inflammation. Colonicdiverticulosis. The appendix is visualized and is normal. Peritoneal cavity / Subperitoneal space: No peritoneal or omentalthickening. There is no free air or free fluid. Lymphovascular: No pathologically enlarged lymph nodes. Scatteredatherosclerosis of the aorta and its branch vessels without aneurysm. Abdominal wall: No bowel containing hernia. Musculoskeletal: No suspicious osseous lesions identified. L3-S1 posteriordecompression and fusion. Multilevel degenerative disc disease withdegenerative grade 1 retrolisthesis of L1 on L2. No evidence of pressuredeformity. Practical Nursing Instructor: No additional findings. IMPRESSION 1. New tiny hypoattenuating lesion within the liver. Recommend furthercharacterization with MRI in 1 month. No other solid organ lesions orlymphadenopathy in the abdomen or pelvis. 2. Fibroid uterus. 3. Diverticulosis. I have personally reviewed the images and the above interpretation andagree with the findings. Augustina Colin MD PhD IMG CT ORDERABLES * CT CHEST W CONTRAST (01/18/2020 12:11 EDT) Anatomical Region Laterality Modality Chest Computed Tomogra phy 01/18/2020 13:0 9 EDT Impressions 01/18/2020 13:09 EDT 1. Enlarging left cervical lymph node with otherwise no lymph node enlargement. 2. Multiple new tiny upper zone nodules are likely inflammatory rather than metastatic. Recommend 3-6 month follow-up 3. Interval removal of right breast emergency service restorer and placement of implant Narrative 01/18/2020 13:09 [...] implants. Since the prior study, right breast emergency service restorer has been removed and an implant placed. [...] implants. Since the prior study, right breast emergency service restorer hasbeen removed and an implant placed. Degenerative disease is present at thecervicothoracic junction and at L1-L2 where there is also mildretrolisthesis of L1. No skeletal metastases are identified. IMPRESSION 1. Enlarging left cervical lymph node with otherwise no lymph nodeenlargement. 2. Multiple new tiny upper zone nodules are likely inflammatory ratherthan metastatic. Recommend 3-6 month follow-up 3. Interval removal of right breast emergency service restorer and placement of implant Augustina Colin MD [...] Once in imaging, 1 dose, Starting on Tue01/18/20 at 1155, Until Tue01/18/20 at 1211, Routine, Imaging Protocol Orders Given 01/18/2020 12:11 EDT 100 mL documented in this encounter Care Teams Rn Integrated Relationship Specialty Start Date End Date Linda Blancas MD [facility] [address] [place] [address] PCP - General 01/06/11 Adolfo Carreno MD [address] [place] [phone] General Surgery 04/26/19 Augustina Colin MD PhD [address] [place] [phone] Medical Oncology 04/26/19 documented as of this encounter
--- OUTSIDE RECORDS SUMMARY | 2024-03-20 15:01 | XMS_ITS | Encounter Summary ---
Author Organization [facility] Address [address] [place] [address] Care Team Providers Care Machinist 2Nd Shift Name Role Phone Linda Blancas MD Primary Care Provider [phone] Adolfo Carreno MD Unavailable [phone] Augustina Colin MD PhD Unavailable Unavailable Reason for Referral * Radiology Services (Routine) - Closed Specialty Diagnoses / Procedures Referred By Contac t Referred To Contact Nuclear Medicine Diagnoses Metastatic breast cancer Procedures NM BONE WHOLE BODY NM BONE SCAN 3 PHASE Augustina Colin MD PhD Referral ID Status Reason Start Date Expiration Date Visits Re quested Visits Authorized [id number] Closed 01/02/2020 1 1 * Radiology Services (Routine) - Closed Specialty Diagnoses / Procedures Referred By Contac t Referred To Contact Diagnoses Metastatic breast cancer Procedures CT ABDOMEN PELVIS W CONTRAST Augustina Colin MD PhD Referral ID Status Reason Start Date Expiration Date Visits Re quested Visits Authorized [id number] Closed 01/04/2020 07/01/2020 1 1 Reason for Visit * Reason Comments Telemedicine Video Visit Encounter Details Date Type Department Care Team (Late st Contact Info) Description 01/02/2020 14:30 EDT Telemedicine [facility] Cancer Center Hematology & Oncology - Main [place] [address] [place] [address] Augustina Colin MD PhD Metastatic breast cancer [...] Progress Notes * Augustina Colin MD - 01/02/2020 1430 EDT REASON FOR OFFICE VISIT: Discussion of side effects related to anti estrogen therapy PROBLEM LIST: 1. 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 a. ??Ultrasound performed in [place]??identifying an irregular heterogeneous soft tissue mass measuring 1.2 x 1.2 x 1.5 cm. ?? 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 ??HER-2 1+ by IHC. ??ANNE MARIE revealed [...] right breast tumor/revision and placement of tissue speech therapy teacher. ??1.9 cm tumor at time of surgery, [...] ??gastroesophageal reflux disease. ?? SUBJECTIVE: Ms Eldridge presents today to discuss side effects related to letrozole and to receive zometa. She tolerated zometa last time. She felt fine. Letrozole is tolerable. She has some hot flashes. No joint ache or discomfort. She is having nipple reconstruction in May with Dr. Whalen. ROS: A 10 point review of systems was obtained. Other than described in the subjective she notes noconcerns or issues. Medications Prior to Today's Visit [...] FORMULA ORAL) Take by mouth daily. ??? mv-mn/C/glutamin/lysin/gftu924 (A[place], ASCORBATE SODIUM, ORAL) Take by mouth [...] as needed for Sleep. Reported on 11/01/2016 Facility-Administered Medications Prior to Visit Medication ??? sodium chloride 0.9 % (NS) infusion ??? [COMPLETED] zoledronic acid (ZOMETA) IVPB 4 mg Social History Tobacco Use ??? Smoking status: Never Smoker ??? Smokeless tobacco: Never Used Substance Use Topics ??? Alcohol use: Yes Alcohol/week: 1.0 - 3.0 standard drinks Types: 1 - 3 Glasses of wine per week Is maintaining social distancing. She continues to be active. Objective: There were no vitals taken for this visit. Estimated body mass index is 25.21 kg/m?? as calculated from the following: Height as of an earlier encounter on 01/02/20: 156.2 cm (61.5). Weight as of an earlier encounter on 01/02/20: 61.5 kg (135 lb 9.6 oz). ECOG Performance Status: 0 General: Comfortable, cooperative and in no apparent distress NEURO: Alert and oriented x 3; Grossly neurologically intact DIAGNOSTIC DATA No visits with results within 1 Day(s) from this visit. Latest known visit with results is: Phlebotomy Only on 01/01/2020 Component Date Value Ref Range Status ??? WBC 01/01/2020 5.44 4.00 - 12.40 K/cmm Final ??? RBC 01/01/2020 4.06 3.86 - 5.04 M/cmm Final ??? Hemoglobin 01/01/2020 13.5 11.6 - 15.2 gm/dL Final ??? HCT 01/01/2020 39.4 34.9 - 44.4 % Final ??? MCV 01/01/2020 97 81 - 98 fl Final ??? MCH 01/01/2020 33.3 26.7 - 33.3 pg Final ??? MCHC 01/01/2020 34.3 32.1 - 35.9 gm/dL Final ? ? RDW-CV 01/01/2020 12.0 <14.7 % Final ? ? RDW-SD 01/01/2020 43.5 <50.4 fl Final ??? PLT 01/01/2020 233 141 - 377 K/cmm Final ??? MPV 01/01/2020 10.2 9.5 - 12.7 fl Final ??? Neutrophils 01/01/2020 46.6 % Final ??? Lymphocytes 01/01/2020 41.5 % Final ??? Monocytes 01/01/2020 8.5 % Final ??? Eosinophils 01/01/2020 2.6 % Final ??? Basophils 01/01/2020 0.6 % Final ??? Immature Grans 01/01/2020 0.2 % Final ??? Absolute Neutrophils 01/01/2020 2.54 2.20 - 8.85 K/cmm Final ??? Absolute Lymphocytes 01/01/2020 2.26 1.09 - 3.30 K/cmm Final ??? Absolute Monocytes 01/01/2020 0.46 0.10 - 0.80 K/cmm Final ??? Absolute Eosinophils 01/01/2020 0.14 0.03 - 0.61 K/cmm Final ??? Absolute Basophils 01/01/2020 0.03 0.01 - 0.11 K/cmm Final ??? Absolute Immature Grans 01/01/2020 0.01 0.00 - 0.06 K/cmm Final ??? Type of Differential: 01/01/2020 Auto Final ? ? CA 27.29 01/01/2020 56.5* <38.0 U/mL Final NOTE: Serum CA 27.29 concentration should not be interpreted as absolute evidence for the presence or absence of malignant disease. Assayed on [employer] Centaur XPT using chemiluminescent technology. ??Values obtained by using different assay methods cannot be used interchangeably. ??? Phosphorus 01/01/2020 3.4 2.5 - 4.5 mg/dL Final ??? Sodium 01/01/2020 141 136 - 145 mEq/L Final ??? Potassium 01/01/2020 5.5* 3.5 - 5.0 mEq/L Final ??? Chloride 01/01/2020 107 96 - 110 mEq/L Final ??? CO2 Total 01/01/2020 29 22 - 32 mEq/L Final ??? Glucose 01/01/2020 97 70 - 100 mg/dL Final ??? BUN 01/01/2020 21 10 - 26 mg/dL Final ??? Creatinine 01/01/2020 0.67 0.52 - 1.04 mg/dL Final ? ? eGFR 01/01/2020 97 >60 mL/min/1.73m2 Final eGFR calculated using CKD-EPI equation for non- Americans. Multiply eGFR by 1.16 for AfricanAmerican patients. ??? Total Protein 01/01/2020 6.8 6.3 - 8.2 g/dL Final ??? Albumin 01/01/2020 4.1 3.4 - 4.9 g/dL Final ??? Alkaline Phosphatase 01/01/2020 69 38 - 126 U/L Final ??? AST 01/01/2020 33 15 - 46 U/L Final ? ? ALT 01/01/2020 25 <35 U/L Final ? ? Bilirubin, Total 01/01/2020 0.5 <1.4 mg/dL Final ??? Calcium 01/01/2020 9.5 8.5 - 10.5 mg/dL Final ??? Calculated Calcium 01/01/2020 9.4 8.5 - 10.5 mg/dL Final ??? Magnesium 01/01/2020 2.2 1.7 - 2.8 mg/dL Final ASSESSMENT: ??Ms Bernstein is a 59-year-old female with metastatic breast cancer.?? The largestarea of disease on the ??lateral aspect of the breast was removed at the time of implant removal.?She took the palbociclib for about a year but has continued on letrozole. ??Her tumor marker has recently increased. She is due for a CT chest so we will schedule that. Given the increase in her tumor marker we will complete all restaging scans. She will receive Zometa today. ? PLAN: 1. Continue letrozole 2.5 mg daily until after staging scans. 2. CT scan chest abdomen pelvis and nuclear bone scan 3. ??Zometa will be provided today. And every 6 months for at least 3 years. 4. Continued follow-up with Dr. Carreno 5. ??Follow-up return 1month? Patient is encouraged call with any intercurrent concerns or problems. Augustina Colin MD 01/01/2020 8:58 documented in this encounter Plan of Treatment Upcoming Encounters Date Type Department Care Team (Late st Contact Info) Description 04/02/2024 10:30 EDT Appointment [facility] Interventional Radiology Unit [address] [place] [address] [phone] 04/02/2024 15:15 EDT Office Visit [facility] Surgical Oncology - [address] [id number] Adolfo Carreno MD [address] [place] [address] [phone] 04/05/2024 9:30 EDT Telemedicine [facility] [address] [place] [address] [phone] Chichi Woods MD [address] [place] [address] [phone] 04/11/2024 15:00 EDT Telemedicine [facility] Hematology & Oncology [address] [phone] Alisson Carreon MD [address] [place] [address] [phone] 04/13/2024 13:30 EDT Appointment [facility] Hematology & Oncology [address] [phone] 04/13/2024 14:00 EDT Appointment [facility] Hematology & Oncology [address] [phone] 04/16/2024 10:00 EST Telemedicine [facility] [address] [place] [address] [phone] Chichi Woods MD [address] [place] [address] [phone] 04/24/2024 9:00 EST Appointment [facility] Radiology CT Outpatient - [address] [id number] 04/24/2024 11:00 EST Appointment [facility] Breast Imaging - [facility] [address] [place] [address] [place], [place] 071521 04/27/2024 12:00 EST Appointment [facility] Hematology & Oncology - [address] [phone] 05/02/2024 15:00 EST Telemedicine [facility] Hematology & Oncology [address] [phone] Alisson Carreon MD [address] [place] [address], Level [address] [place] [phone] 05/04/2024 10:15 EST Ancillary Procedure [facility] Cardiology [place] [address] [place] [address] 05/04/2024 11:30 EST Appointment [facility] Hematology & Oncology [address] [phone] 05/04/2024 12:00 EST Appointment [facility] Hematology & Oncology [address] [phone] 06/12/2024 13:00 EST Appointment [facility] Radiology CT - [address] [phone] documented as of this encounter Results * [...] MD PhD IMG NM ORDERABLES * CT ABDOMEN PELVIS W CONTRAST (01/18/2020 [...] on L2. No evidence of pressure deformity. Gallery Or Museum Technician: No additional findings. Procedure Note Richard Antonio [...] L1 on L2. No evidence of pressuredeformity. Gallery Or Museum Technician: No additional findings. IMPRESSION 1. New tiny [...] site of breast (HCC-CMS) Metastatic breast cancer Metastatic breast cancer documented in this encounter Care Teams Machinist 2Nd Shift Relationship Specialty Start Date End Date Linda Blancas MD [facility] [address] [place] [address] PCP - General 01/06/11 Adolfo Carreno MD [address] [place] [address], [address] [place] [phone] General Surgery 04/26/19 Augustina Colin MD PhD [address] [facility], [address] [place] [phone] Medical Oncology 04/26/19 documented as of this encounter
--- OUTSIDE RECORDS SUMMARY | 2024-03-20 15:01 | XMS_ITS | Encounter Summary ---
Author Organization [facility] Address [address] [place] [address] Care Team Providers Care Database Tester Name Role Phone Linda Blancas MD Primary Care Provider [phone] Adolfo Carreno MD Unavailable [phone] Augustina Colin MD PhD Unavailable Unavailable Reason for Visit * Reason Onset Date Comments Appointment Related 07/26/2019 Encounter Details Date Type Department Care Team (Late st Contact Info) Description 07/26/2019 Telephone [facility] Cancer Center Hematology & Oncology - Main [place] [address] [place], [place] [address] Augustina Colin, PhD Appointment Related Social History [...] encounter Miscellaneous Notes * Telephone Encounter - Fabian Karen - 07/26/2019 1631 EST TC and spoke with Sendy, and she is rescheduled for September @ 1pm with Dr. Colin * Telephone Encounter - Emily Nesbitt - 07/26/2019 1422 EST Patient calling to cancel and reschedule 09/06/19 appointment at 930am, she will be out of town. Please call to reschedule documented in this encounter Plan of Treatment Upcoming Encounters Date Type Department Care Team (Late st Contact Info) Description 04/02/2024 10:30 EDT Appointment [facility] Interventional Radiology Unit [address] [place], [place] 389861 04/02/2024 15:15 EDT Office Visit [facility] Surgical Oncology - [address] [phone] Adolfo Carreno MD 111 [facility], Level [address] [place] [phone] 04/05/2024 9:30 EDT Telemedicine [facility] - [facility] Palliative Care Services [address] [place], [place] [phone] Chichi Woods MD 111 [facility], [address] [phone] 04/11/2024 15:00 EDT Telemedicine [facility] Hematology & Oncology - [facility] [address] [place], [place] 191891 Alisson Carreon MD [address] [place] [address], [facility] 2 [place] [phone] 04/13/2024 13:30 EDT Appointment [facility] Hematology & Oncology - [address] [phone] 04/13/2024 14:00 EDT Appointment [facility] Hematology & Oncology - [address] [phone] 04/16/2024 10:00 EST Telemedicine [facility] - [facility] Palliative Care Services [address] [place] [address] [phone] Chichi Woods MD [address] [place] [address], [address] [phone] 04/24/2024 9:00 EST Appointment [facility] Radiology CT Outpatient - [address] [id number] 04/24/2024 11:00 EST Appointment [facility] Breast Imaging - [facility] S [address] [phone] 04/27/2024 12:00 EST Appointment [facility] Hematology & Oncology - [address] [phone] 05/02/2024 15:00 EST Telemedicine [facility] Hematology & Oncology - [address] [phone] Alisson Carreon MD [address] [place] [address], [facility] 2 [place] [phone] 05/04/2024 10:15 EST Ancillary Procedure [facility] Cardiology - [address] [place], [place] [phone] 05/04/2024 11:30 EST Appointment [facility] Hematology & Oncology [address] [address] 05/04/2024 12:00 EST Appointment [facility] Hematology & Oncology [address] [address] 06/12/2024 13:00 EST Appointment [facility] Radiology CT - [address] [address] documented as of this encounter Visit Diagnoses Not on filedocumented in this encounter Care Teams Database Tester Relationship Specialty Start Date End Date Linda Blancas MD [facility] [address] [place] [address] PCP - General 01/06/11 Adolfo Carreno MD [address] [place] [address] [phone] General Surgery 04/26/19 Augustina Colin MD PhD [address] [place] [phone] Medical Oncology 04/26/19 documented as of this encounter
--- OUTSIDE RECORDS SUMMARY | 2024-03-20 15:01 | XMS_ITS | Encounter Summary ---
Author Organization [facility] Address [address] [place] [address] Care Team Providers Care Deburr Operator Name Role Phone Linda Blancas MD Primary Care Provider [phone] Adolfo Carreno MD Unavailable [phone] Augustina Colin MD PhD Unavailable Unavailable Encounter Details Date Type Department Care Team (Late st Contact Info) Description 09/12/2019 Orders Only [facility] Radiology - Main [place] [address] [place], [place] 0637[address] Don Prakash MD 111 [facility] 1 [place] [phone] Social History Tobacco Use Types [...] [facility] [address] [place] [address] [phone] 04/02/2024 15:15 EDT Office Visit [facility] Surgical Oncology - [address] 584111 Adolfo Carreno MD [address] [place] [address] [phone] 04/05/2024 9:[address] [facility] Palliative Care Services [address] [place] [address] [phone] Chichi Woods MD [address] [place] [address] [phone] 04/11/2024 15:00 EDT Telemedicine [facility] Hematology & Oncology [address] 104001 Alisson Carreon MD [address] [place] [address] [phone] 04/13/2024 13:30 EDT Appointment [facility] Hematology & Oncology [address] [phone] 04/13/2024 14:00 EDT Appointment [facility] Hematology & Oncology [address] [phone] 04/16/2024 10:00 EST Telemedicine [facility] - [facility] Palliative Care Services [address] [place] [address] [phone] Chichi Woods MD [address] [place] [address], [address] [phone] 04/24/2024 9:00 EST Appointment [facility] Radiology CT Outpatient - [address] [phone] 04/24/2024 11:00 EST Appointment [facility] Breast Imaging - [facility] S [address] 351591 04/27/2024 12:00 EST Appointment [facility] Hematology & Oncology - [address] 334261 05/02/2024 15:00 EST Telemedicine [facility] Hematology & Oncology - [address] [phone] Alisson Carreon MD [address] [place] [address], Level [address] [place] [phone] 05/04/2024 10:15 EST Ancillary Procedure [facility] Cardiology - [place] [address] 05/04/2024 11:30 EST Appointment [facility] Hematology & Oncology - [address] 712571 05/04/2024 12:00 EST Appointment [facility] Hematology & Oncology [address] [phone] 06/12/2024 13:00 EST Appointment [facility] Radiology CT - [address] [phone] documented as of this encounter Visit Diagnoses Not on filedocumented in this encounter Care Teams Deburr Operator Relationship Specialty Start Date End Date Linda Blancas MD [facility] [address] [place] [address] PCP - General 01/06/11 Adolfo Carreno MD [address] [place] [address] 2 [place] [phone] General Surgery 04/26/19 Augustina Colin MD PhD [address] [place] [address] 2 [place] [phone] Medical Oncology 04/26/19 documented as of this encounter
--- OUTSIDE RECORDS SUMMARY | 2024-03-20 15:01 | XMS_ITS | Encounter Summary ---
Author Organization [facility] Address [address] [place] [address] Care Team Providers Care Rn Radiation Name Role Phone Linda Blancas MD Primary Care Provider [phone] Adolfo Carreno MD Unavailable [phone] Augustina Colin MD PhD Unavailable Unavailable Reason for Visit * Reason Comments Follow-up Encounter Details Date Type Department Care Team (Late st Contact Info) Description 07/30/2019 10:45 EST Office Visit [facility] Surgical Oncology - [address] [phone] Adolfo Carerno MD [address] [place] [address], [facility] [address] [place] [address] Routine cancer follow-up visit (Primary [...] Progress Notes * Adolfo Carreno MD - 07/30/2019 1045 EST This office note has been dictated. * Adolfo Carreno MD - 07/30/2019 0000 EST [facility] BREAST CANCER PROGRAM PROGRESS / FOLLOWUP NOTE - 07/30/2019 PROBLEM: The patient is seen in followup. SUBJECTIVE: The patient is a 58-year-old woman who had DCIS of the right breast treated with a total mastectomy many years ago, had a positive margin, opted for no radiation at that point. She developed recurrent disease including mets to her lung and mediastinum, underwent preoperative treatment with letrozole, palbociclib and had an excellent response and subsequently, had a total mastectomy with reconstruction. The patient had a mastopexy and implant on the opposite side. The patient is seenhere in routine followup. She continues on the letrozole and is now on Zometa. OBJECTIVE: On exam today, she is in no acute distress. She has no scleral icterus. There are no palpable neck masses, no cervical or supraclavicular lymph nodes are palpable. There are no nodules in her thyroid. No carotid bruits or JVD are noted. Lungs are clear to auscultation. Heart has a regular rate and rhythm. There is no S3, S4, murmurs noted. Breast exam reveals the mastectomy with reconstruction on the right and the mastopexy incision on the left. No other suspicious skin changes are noted. Palpation of the right side reveals no palpable abnormality suspicious for recurrence. There are no palpable lymph nodes in the axilla. The left side has no palpable abnormality suspicious for re currence. There are no palpable lymph nodes in the axilla. There are no abdominal masses, no hepatoor splenomegaly was noted. DIAGNOSTIC DATA: Ultrasound of the right side reveals the implant in good position. There is no evidence of recurrent disease in the mastectomy site. There are no abnormal lymph nodes in the intramammary or axillary region. The left side has no evidence of recurrent suspicious abnormalities in the breast parenchyma. No abnormal lymph nodes were seen in the intramammary or axillary region. ASSESSMENT: Based on these findings, the patient is doing well, has no evidence of recurrence. PLAN: We will plan a followup again in 6 months. Adolfo Carreno MD 11 21 AM - Adolfo Carreno MD dn Dictation ID: [id number] cc: Linda Blancas MD, [place] [address] Augustina Colin MD, [facility] - Hematology Oncology [address] [place] [address] Tylor Boss MD, [facility] - Plastic Surgery [address] [place] [address], [address], [place] [address] documented in this encounter Plan of Treatment Upcoming Encounters Date Type Department Care Team (Late st Contact Info) Description 04/02/2024 10:30 EDT Appointment [facility] Interventional Radiology Unit [address] [place] [address] 04/02/2024 15:15 EDT Office Visit [facility] Surgical Oncology - [address] [address] Adolfo Carreno MD [address] [place] [address], [facility], Level [address] [place] [phone] 04/05/2024 9:30 EDT Telemedicine [facility] Palliative Care Services [address] [place] [address] Chichi Woods MD [address] [facility], [address] [phone] 04/11/2024 15:00 EDT Telemedicine [facility] Hematology & Oncology - [address] 899461 Alisson Carreon MD [address] [place] [address] [address] [place] [phone] 04/13/2024 13:30 EDT Appointment [facility] Hematology & Oncology - [address] [phone] 04/13/2024 14:00 EDT Appointment [facility] Hematology & Oncology [address] [id number] 04/16/2024 10:00 EST Telemedicine [facility] - [facility] Palliative Care Services [address] [place] [address] [phone] Chichi Woods MD [address] [place] [address], [place] [address] [place] [phone] 04/24/2024 9:00 EST Appointment [facility] Radiology CT Outpatient - [address] [id number] 04/24/2024 11:00 EST Appointment [facility] Breast Imaging - [address] [id number] 04/27/2024 12:00 EST Appointment [facility] Hematology & Oncology - [address] [phone] 05/02/2024 15:00 EST Telemedicine [facility] Hematology & Oncology - [address] 801731 Alisson Carreon MD [address] [place] [address] [address] [place] [phone] 05/04/2024 10:15 EST Ancillary Procedure [facility] Cardiology - [place] [address] 05/04/2024 11:30 EST Appointment [facility] Hematology & Oncology [address] [address] 05/04/2024 12:00 EST Appointment [facility] Hematology & Oncology [address] [address] 06/12/2024 13:00 EST Appointment [facility] Radiology CT [address] [phone] documented as of this encounter Visit Diagnoses Diagnosis Routine cancer follow-up visit- Primary Other follow-up examination Personal history of breast cancer Personal history of malignant neoplasm of breast documented in this encounter Care Teams Rn Radiation Relationship Specialty Start Date End Date Linda Blancas MD [facility] [address] [place] [address] PCP - General 01/06/11 Adolfo Carreno MD [address] [place] [phone] General Surgery 04/26/19 Augustina Colin MD PhD [address] [place] [phone] Medical Oncology 04/26/19 documented as of this encounter
--- OUTSIDE RECORDS SUMMARY | 2024-03-20 15:01 | XMS_ITS | Encounter Summary ---
Author Organization [facility] Address [address] [place] [address] Care Team Providers Care Wood Cabinet Finisher Name Role Phone Linda Blancas MD Primary Care Provider [phone] Adolfo Carreno MD Unavailable [phone] Augustina Colin MD PhD Unavailable Unavailable Reason for Visit * Reason Onset Date Comments Dental Problem 11/12/2019 Follow-up 11/12/2019 Encounter Details Date Type Department Care Team (Late st Contact Info) Description 11/12/2019 Telephone [facility] Hematology & Oncology - Main [place] [address] [place], [place] [address] Augustina Colin, PhD Dental Problem; Follow-up Social History Tobacco Use Types Packs/Day [...] Telephone Encounter - Quita Rob RN - 11/13/2019 1019 EDT Called and spoke with pt who reports she will need to have a crown placed and she would like to have that done this month prior to her zometa infusion. Pt made aware Dr Colin recommends moving out her zometa infusion 1 month to allow for healing time. Pt encouraged to ask her dentist how long to wait prior to restarting the zometa after the crown has been placed. Pt will reschedule her zometa but inquired about keeping her 12/[address] Mann and when to have labs. 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 Followed up with pt on [employer] message. * Telephone Encounter - Emily Nesbitt - 11/13/2019 0953 EDT Patient calling to check up on this. Please call patient back to discuss. * Telephone Encounter - Sandhya Mcbride - 11/12/2019 1337 EDT Patient is going to get some proactive dental work done before next zometa. She would like to confirm okay to do in light of Covid. Please call documented in this encounter Plan of Treatment Upcoming Encounters Date Type Department Care Team (Late st Contact Info) Description 04/02/2024 10:30 EDT Appointment [facility] Interventional Radiology Unit [address] [place] [address] 04/02/2024 15:15 EDT Office Visit [facility] Surgical Oncology - [place] [address] [place] [address] [phone] Adolfo Carreno MD [address] [place] [address] [address] [place] [phone] 04/05/2024 9:30 EDT Telemedicine [facility] Palliative Care Services [address] [place] [address] Chichi Woods MD [address] [place] [phone] 04/11/2024 15:00 EDT Telemedicine [facility] Hematology & Oncology - [address] [phone] Alisson Carreon MD [address] [place] [address] 2 [place] [phone] 04/13/2024 13:30 EDT Appointment [facility] Hematology & Oncology - [address] [phone] 04/13/2024 14:00 EDT Appointment [facility]ematology [facility] Oncology - [address] [address] 04/16/2024 10:00 EST Telemedicine [facility] Palliative Care Services [address] [place] [address] [phone] Chichi Woods MD [address] [place] [address] [phone] 04/24/2024 9:00 EST Appointment [facility] Radiology CT Outpatient - [address] [id number] 04/24/2024 11:00 EST Appointment [facility] Breast Imaging - [address] [place] [address] 04/27/2024 12:00 EST Appointment [facility] Hematology [facility] Oncology [address] [address] 05/02/2024 15:00 EST Telemedicine [facility] Oncology [address] [phone] Alisson Carreon MD [address] [place] [phone] 05/04/2024 10:15 EST Ancillary Procedure [facility] Cardiology - [address] [place] [address] 05/04/2024 11:30 EST Appointment [facility]ematology [facility] Oncology [address] [id number] 05/04/2024 12:00 EST Appointment [facility] [address] [phone] 06/12/2024 13:00 EST Appointment [facility] Radiology CT - [address] [phone] documented as of this encounter Visit Diagnoses Not on filedocumented in this encounter Care Teams Wood Cabinet Finisher Relationship Specialty Start Date End Date Linda Blancas MD [address] [place] [address] [address] [place] [address] PCP - General 01/06/11 Adolfo Carreno MD [address] [place] [phone] General Surgery 04/26/19 Augustina Colin MD PhD [address] [place] [phone] Medical Oncology 04/26/19 documented as of this encounter
--- OUTSIDE RECORDS SUMMARY | 2024-03-20 15:01 | XMS_ITS | Encounter Summary ---
Author Organization [facility] Address [address] [place] [address] Care Team Providers Care Burling And Joining Supervisor Name Role Phone Linda Blancas MD Primary Care Provider [phone] Adolfo Carreno MD Unavailable [phone] Augustina Colin MD PhD Unavailable Unavailable Reason for Visit * Reason Onset Date Comments Appointment Related 10/30/2019 Encounter Details Date Type Department Care Team (Late st Contact Info) Description 10/30/2019 Telephone [facility] Plastic, Reconstructive & Cosmetic Surgery - [address], [address] [place] [address] Tylor Boss MD [address] [phone] Appointment Related Social History Tobacco Use Types [...] * Telephone Encounter - Dasha Lockhart - 10/30/2019 0959 EDT Spoke to Sendy. I offered her a surgery date in November for which she has decided to wait and is requesting a date in May 2020. documented in this encounter Plan of Treatment Upcoming Encounters Date Type Department Care Team (Late st Contact Info) Description 04/02/2024 10:30 EDT Appointment [facility] Interventional Radiology Unit [address] [place] [address] [phone] 04/02/2024 15:15 EDT Office Visit [facility] Surgical Oncology - [address] [phone] Adolfo Carreno MD [address] [place] [address] 2 [place] [phone] 04/05/2024 9:30 EDT Telemedicine [facility] - [facility] Palliative Care Services [address] [place] [address] [phone] Chichi Woods MD [address] [place] [address], [address] [phone] 04/11/2024 15:00 EDT Telemedicine [facility] Hematology & Oncology - [address] [phone] Alisson Carreon MD [address] [place] [address] 2 [place] [phone] 04/13/2024 13:30 EDT Appointment [facility] Hematology & Oncology - [address] [id number] 04/13/2024 14:00 EDT Appointment [facility] Hematology & Oncology - [address] [id number] 04/16/2024 10:00 EST Telemedicine [facility] - [facility] Palliative Care Services [address] [place] [address] [phone] Chichi Woods MD [address] [place] [address], [address] [phone] 04/24/2024 9:00 EST Appointment [facility] Radiology CT Outpatient - [address] 810361 04/24/2024 11:00 EST Appointment [facility] Breast Imaging - [facility] [address] 378661 04/27/2024 12:00 EST Appointment [facility] Hematology & Oncology - [address] [id number] 05/02/2024 15:00 EST Telemedicine [facility] Hematology & Oncology - [address] [phone] Alisson Carreon MD [address] [place] [address], Level [address] [place] [phone] 05/04/2024 10:15 EST Ancillary Procedure [facility] Cardiology - [address] [place], [place] [phone] 05/04/2024 11:30 EST Appointment [facility] Hematology & Oncology - [address] [address] 05/04/2024 12:00 EST Appointment [facility] Hematology & Oncology - [address] [address] 06/12/2024 13:00 EST Appointment [facility] Radiology CT - [address] [address] documented as of this encounter Visit Diagnoses Not on filedocumented in this encounter Care Teams Burling And Joining Supervisor Relationship Specialty Start Date End Date Linda Blancas MD [facility] [address] [place] [address] PCP - General 01/06/11 Adolfo Carreno MD [address] [place] [address], [facility] 2 [place] [phone] General Surgery 04/26/19 Augustina Colin MD PhD [address] [place] [address], [facility] [address] [place] [phone] Medical Oncology 04/26/19 documented as of this encounter
--- OUTSIDE RECORDS SUMMARY | 2024-03-20 15:01 | XMS_ITS | Encounter Summary ---
Author Organization [facility] Address [address] [place] [address] Care Team Providers Care Non Morse Intercept Technician Name Role Phone Linda Blancas MD Primary Care Provider [phone] Adolfo Carreno MD Unavailable [phone] Augustina Colin MD PhD Unavailable Unavailable Encounter Details Date Type Department Care Team (Latest Contact Info) Description 01/01/2020 Travel Social History Tobacco Use Types Packs/Day [...] [facility] [address] [place] [address] 027491 04/02/2024 15:15 EDT Office Visit [facility] Surgical Oncology - [address] [phone] Adolfo Carreno MD [address] [place] [phone] 04/05/2024 9:30 EDT Telemedicine [facility] Palliative Care Services [address] [place] [address] [phone] Chichi Woods MD [address] [place] [address] [phone] 04/11/2024 15:00 EDT Telemedicine [facility] Hematology & Oncology [address] 188691 Alisson Carreon MD [address] [place] [phone] 04/13/2024 13:30 EDT Appointment [facility] Hematology & Oncology [address] [phone] 04/13/2024 14:00 EDT Appointment [facility] Hematology & Oncology [address] 401471 04/16/2024 10:00 EST Telemedicine [facility] Palliative Care Services [address] [place] [address] [phone] Chichi Woods MD [address] [place] [address], [address] [phone] 04/24/2024 9:00 EST Appointment [facility] Radiology CT Outpatient - [address] [phone] 04/24/2024 11:00 EST Appointment [facility] Breast Imaging - [address] 795331 04/27/2024 12:00 EST Appointment [facility] Hematology & Oncology [address] 230691 05/02/2024 15:00 EST Telemedicine [facility] Hematology & Oncology [address] [phone] Alisson Carreon MD [address] [place] [address], Level [address] [place] [phone] 05/04/2024 10:15 EST Ancillary Procedure [facility] Cardiology - [address] [place], [place] [phone] 05/04/2024 11:30 EST Appointment [facility] Hematology & Oncology [address] 321231 05/04/2024 12:00 EST Appointment [facility] Hematology & Oncology [address] [phone] 06/12/2024 13:00 EST Appointment [facility] Radiology CT - [address] [phone] documented as of this encounter Visit Diagnoses Not on filedocumented in this encounter Care Teams Non Morse Intercept Technician Relationship Specialty Start Date End Date Linda Blancas MD [facility] [address] [place] [address] PCP - General 01/06/11 Adolfo Carreno MD [address] [place] [address] 2 [place] [phone] General Surgery 04/26/19 Augustina Colin MD PhD [address] [place] [phone] Medical Oncology 04/26/19 documented as of this encounter
--- OUTSIDE RECORDS SUMMARY | 2024-03-20 15:01 | XMS_ITS | Encounter Summary ---
Author Organization [facility] Address [address] [place] [address] Care Team Providers Care Host Hostess Name Role Phone Linda Blancas MD Primary Care Provider [phone] Adolfo Carreno MD Unavailable [phone] Augustina Colin MD PhD Unavailable Unavailable Encounter Details Date Type Department Care Team (Latest Contact Info) Description 07/11/2019 Travel Social History Tobacco Use Types Packs/Day [...] Contact Info) Description 04/02/2024 10:30 EDT Appointment [facility] Interventional Radiology Unit [address] [place] [address] [phone] 04/02/2024 15:15 EDT Office Visit [facility] Surgical Oncology - [address] [phone] Adolfo Carreno MD [address] [place] [phone] 04/05/2024 9:30 EDT Telemedicine [facility] Palliative Care Services [address] [place] [address] [phone] Chichi Woods MD [address] [place] [phone] 04/11/2024 15:00 EDT Telemedicine [facility] Hematology & Oncology - [address] [phone] Alisson Carreon MD [address] [place] [address] [phone] 04/13/2024 13:30 EDT Appointment [facility] Hematology & Oncology [address] [phone] 04/13/2024 14:00 EDT Appointment [facility] Hematology & Oncology [address] [phone] 04/16/2024 10:00 EST Telemedicine [facility] Palliative Care Services [address] [place] [address] [phone] Chichi Woods MD [address] [place] [address] [phone] 04/24/2024 9:00 EST Appointment [facility] Radiology CT Outpatient - [address] [phone] 04/24/2024 11:00 EST Appointment [facility] Breast Imaging - [facility] [address] [place] [address] [place], [place] 333401 04/27/2024 12:00 EST Appointment [facility] Hematology & Oncology - [address] [address] 05/02/2024 15:00 EST Telemedicine [facility] Hematology & Oncology - [address] [phone] Alisson Carreon MD [address] [place] [address], Level [address] [place] [phone] 05/04/2024 10:15 EST Ancillary Procedure [facility] Cardiology - [address] [place] [address] 05/04/2024 11:30 EST Appointment [facility] Hematology & Oncology - [address] [address] 05/04/2024 12:00 EST Appointment [facility] Hematology & Oncology - [address] 142701 06/12/2024 13:00 EST Appointment [facility] Radiology CT - [address] 829011 documented as of this encounter Visit Diagnoses Not on filedocumented in this encounter Care Teams Host Hostess Relationship Specialty Start Date End Date Linda Blancas MD [address] [place] [address] PCP - General 01/06/11 Adolfo Carreno MD 111 [facility] 2 [place] [phone] General Surgery 04/26/19 Augustina Colin MD PhD 111 [facility] 2 [place] [phone] Medical Oncology 04/26/19 documented as of this encounter
--- OUTSIDE RECORDS SUMMARY | 2024-03-20 15:01 | XMS_ITS | Encounter Summary ---
Author Organization [facility] Address [address] [place] [address] Care Team Providers Care Director Of Casework Department Name Role Phone Linda Blancas MD Primary Care Provider [phone] Adolfo Carreno MD Unavailable [phone] Augustina Colin MD PhD Unavailable Unavailable Reason for Visit * Reason Onset Date Comments Appointment Related 09/18/2019 Encounter Details Date Type Department Care Team (Late st Contact Info) Description 09/18/2019 Telephone [facility] Plastic, Reconstructive & Cosmetic Surgery - [address], [address] [place] [address] Tylor Boss MD [address] [phone] Appointment Related Social History Tobacco [...] * Telephone Encounter - Dasha Lockhart - 09/18/2019 1305 EDT Informed patient of surgery cancel due to covid-19 documented in this encounter Plan of Treatment Upcoming Encounters Date Type Department Care Team (Late st Contact Info) Description 04/02/2024 10:30 EDT Appointment [facility] Interventional Radiology Unit [address] [place] [address] [phone] 04/02/2024 15:15 EDT Office Visit [facility] Surgical Oncology - [address] [phone] Adolfo Carreno MD [address] [place] [phone] 04/05/2024 9:30 EDT Telemedicine [facility] - [facility] Palliative Care Services [address] [place] [address] 906231 Chichi Woods MD [address] [place] [phone] 04/11/2024 15:00 EDT Telemedicine [facility] Hematology & Oncology - [address] [phone] Alisson Carreon MD [address] [place] [address] 2 [place] [phone] 04/13/2024 13:30 EDT Appointment [facility] Hematology & Oncology - [address] 700381 04/13/2024 14:00 EDT Appointment [facility] Hematology & Oncology - [address] 760291 04/16/2024 10:00 EST Telemedicine [facility] - [facility] Palliative Care Services [address] [place] [address] 691971 Chichi Woods MD [address] [place] [address] [phone] 04/24/2024 9:00 EST Appointment [facility] Radiology CT Outpatient - [address] [address] 04/24/2024 11:00 EST Appointment [facility] Breast Imaging - [facility] S [address] 687041 04/27/2024 12:00 EST Appointment [facility] Hematology & Oncology [address] 411971 05/02/2024 15:00 EST Telemedicine [facility] Hematology & Oncology - [address] [address] Alisson Carreon MD [address] [place] [address], Level 2 [place] [phone] 05/04/2024 10:15 EST Ancillary Procedure [facility] Cardiology - [place] [address] 05/04/2024 11:30 EST Appointment [facility] Hematology & Oncology - [address] 255051 05/04/2024 12:00 EST Appointment [facility] Hematology & Oncology - [address] 104641 06/12/2024 13:00 EST Appointment [facility] Radiology CT - [address] [address] documented as of this encounter Visit Diagnoses Not on filedocumented in this encounter Care Teams Director Of Casework Department Relationship Specialty Start Date End Date Linda Blancas MD [facility] [address] [place] [address] PCP - General 01/06/11 Adolfo Carreno MD [address] [place] [address] 2 [place] [phone] General Surgery 04/26/19 Augustina Colin MD PhD [address] [place] [address] 2 [place] [address] Medical Oncology 04/26/19 documented as of this encounter
--- OUTSIDE RECORDS SUMMARY | 2024-03-20 15:01 | XMS_ITS | Encounter Summary ---
Author Organization [facility] Address [address] [place] [address] Care Team Providers Care Oracle Bpm Consultant Name Role Phone Linda Blancas MD Primary Care Provider Adolfo Carreno MD Unavailable [phone] Augustina Colin MD PhD Unavailable Unavailable Encounter Details Date Type Department Care Team (Late st Contact Info) Description 12/19/2019 Orders Only [facility] Plastic, Reconstructive & Cosmetic Surgery - [address], [address] [place] [address] Liat Ventura RN Pre-op testing (Primary Dx) Social History Tobacco Use Types [...] as of this encounter Progress Notes * Liat Ventura, RN - 12/19/2019 1352 EDT COVID 19 pre op test ordered for surgery date of 05/26/20 LIAT VENTURA RN documented in this encounter Plan of Treatment Upcoming Encounters Date Type Department Care Team (Late st Contact Info) Description 04/02/2024 10:30 EDT Appointment [facility] Interventional Radiology Unit [address] [place] [address] [phone] 04/02/2024 15:15 EDT Office Visit [facility] Surgical Oncology - [address] [phone] Adolfo Carreno MD [address] [place] [address] [phone] 04/05/2024 9:30 EDT Telemedicine [facility] - [facility] Palliative Care Services [address] [place] [address] [phone] Chichi Woods MD [address] [place] [address] [phone] 04/11/2024 15:00 EDT Telemedicine [facility] Hematology & Oncology [address] [phone] Alisson Carreon MD [address] [place] [address] [phone] 04/13/2024 13:30 EDT Appointment [facility] Hematology & Oncology - [address] [address] 04/13/2024 14:00 EDT Appointment [facility] Hematology & Oncology [address] 525131 04/16/2024 10:00 EST Telemedicine [facility] - [facility] Palliative Care Services [address] [place] [address] [phone] Chichi Woods MD [address] [place] [address], [address] [phone] 04/24/2024 9:00 EST Appointment [facility] Radiology CT Outpatient - [address] 497371 04/24/2024 11:00 EST Appointment [facility] Breast Imaging - [facility] S [address] 957611 04/27/2024 12:00 EST Appointment [facility] Hematology & Oncology - [address] 357101 05/02/2024 15:00 EST Telemedicine [facility] Hematology & Oncology [address] 385231 Alisson Carreon MD [address] [place] [address], [facility], Level 2 [place] [phone] 05/04/2024 10:15 EST Ancillary Procedure [facility] Cardiology [place] [address] 05/04/2024 11:30 EST Appointment [facility] Hematology & Oncology [address] 155351 05/04/2024 12:00 EST Appointment [facility] Hematology & Oncology - [address] 090881 06/12/2024 13:00 [facility] Radiology CT - [address] 369591 documented as of this encounter Visit Diagnoses Diagnosis Pre-op testing- Primary Preoperative examination, unspecified documented in this encounter Care Teams Oracle Bpm Consultant Relationship Specialty Start Date End Date Linda Blancas MD [facility] [address] [place] [address] PCP - General 01/06/11 Adolfo Carreno MD [address] [place] [address] 2 [place] [phone] General Surgery 04/26/19 Augustina Colin MD PhD [address] [place] [address], [facility] 2 [place] [address] Medical Oncology 04/26/19 documented as of this encounter
--- OUTSIDE RECORDS SUMMARY | 2024-03-20 15:01 | XMS_ITS | Encounter Summary ---
Author Organization [facility] Address [address] [place] [address] Care Team Providers Care Flying Teacher Name Role Phone Linda Blancas MD Primary Care Provider [phone] Adolfo Carreno MD Unavailable [phone] Augustina Colin MD PhD Unavailable Unavailable Encounter Details Date Type Department Care Team (Late st Contact Info) Description 06/18/2019 Orders Only [facility] Plastic, Reconstructive & Cosmetic Surgery - [address], [address] [place] [address] Tylor Boss MD [address] [place] [address] S/P breast reconstruction, right (Primary Dx); Lipoma of back Social History Tobacco Use Types Packs/Day Years [...] [facility] Interventional Radiology Unit [address] [place] [address] 945101 04/02/2024 15:15 EDT Office Visit [facility] Surgical Oncology - [address] 758181 Adolfo Carreno MD [address] [place] [address] 2 [place] [phone] 04/05/2024 9:[address] [facility] - [facility] Palliative Care Services [address] [place] [address] [phone] Chichi Woods MD [address] [place] [address], [address] [phone] 04/11/2024 15:00 EDT Telemedicine [facility] Hematology & Oncology - [address] 077031 Alisson Carreon MD [address] [place] [address] 2 [place] [phone] 04/13/2024 13:30 EDT Appointment [facility] Hematology & Oncology - [address] 158251 04/13/2024 14:00 EDT Appointment [facility] Hematology & Oncology - [address] 983531 04/16/2024 10:[address] [facility] - [facility] Palliative Care Services [address] [place] [address] Chichi Woods MD 111 [facility], [address] [phone] 04/24/2024 9:00 EST Appointment [facility] Radiology CT Outpatient - [address] 239171 04/24/2024 11:00 EST Appointment [facility] Breast Imaging - [facility] S [place] 1 [place], [place] 922001 04/27/2024 12:00 EST Appointment [facility] Hematology & Oncology - [address] 661471 05/02/2024 15:00 EST Telemedicine [facility] Hematology & Oncology - [address] 755241 Alisson Carreon MD [address] [place] [address], [facility], Level 2 [place] [phone] 05/04/2024 10:15 EST Ancillary Procedure [facility] Cardiology [place] [address] 05/04/2024 11:30 EST Appointment [facility] Hematology & Oncology - [address] [phone] 05/04/2024 12:00 EST Appointment [facility] Hematology & Oncology - [address] 872641 06/12/2024 13:00 EST Appointment [facility] Radiology CT - [address] [phone] documented as of this encounter Visit Diagnoses Diagnosis S/P breast reconstruction, right- Primary Breast replaced by other means Lipoma of back Lipoma of other specified sites documented in this encounter Orders Case Request Count Last Ordered Date First Orde red Date CASE REQUEST OPERATING ROOM 1 06/18/2019 documented in this encounter Care Teams Flying Teacher Relationship Specialty Start Date End Date Linda Blancas MD [facility] [address] [place] [address] PCP - General 01/06/11 Adolfo Carreno MD [address] [place] [address] 2 [place] [phone] General Surgery 04/26/19 Augustina Colin MD PhD [address] [place] [address] 2 [place] [phone] Medical Oncology 04/26/19 documented as of this encounter
--- OUTSIDE RECORDS SUMMARY | 2024-03-20 15:01 | XMS_ITS | Encounter Summary ---
Author Organization [facility] Address [address] [place] [address] Care Team Providers Care Skimmer Reverberatory Name Role Phone Linda Blancas MD Primary Care Provider Adolfo Carreno MD Unavailable [phone] Augustina Colin MD PhD Unavailable Unavailable Reason for Visit * Reason Onset Date Comments Appointment Related 01/01/2020 Encounter Details Date Type Department Care Team (Late st Contact Info) Description 01/01/2020 Telephone [facility] Hematology & Oncology - [place] [address] [place], [place] [phone] Augustina Colin, PhD Appointment Related Social History [...] encounter Miscellaneous Notes * Telephone Encounter - Kasey Prabhakar MA - 01/01/2020 1308 EDT unble to reach Kasey Prabhakar Squeegee Finisher documented in this encounter Plan of Treatment Upcoming Encounters Date Type Department Care Team (Late st Contact Info) Description 04/02/2024 10:30 EDT Appointment [facility] Interventional Radiology Unit [address] [place] [address] 04/02/2024 15:15 EDT Office Visit [facility] Surgical Oncology - [address] 458261 Adolfo Carreno MD [address] [place] [address] [phone] 04/05/2024 9:30 EDT Telemedicine [facility] - [facility] Palliative Care Services [address] [place] [address] [phone] Chichi Woods MD [address] [place] [address], [address] [phone] 04/11/2024 15:00 EDT Telemedicine [facility] Hematology & Oncology [address] 220551 Alisson Carreon MD [address] [place] [address] 2 [place] [phone] 04/13/2024 13:30 EDT Appointment [facility] Hematology & Oncology [address] 274341 04/13/2024 14:00 EDT Appointment [facility] Hematology & Oncology [address] [address] 04/16/2024 10:00 EST Telemedicine [facility] - [facility] Palliative Care Services [address] [place] [address] 967121 Chichi Woods MD [address] [place] [address] [phone] 04/24/2024 9:00 EST Appointment [facility] Radiology CT Outpatient - [address] 215861 04/24/2024 11:00 EST Appointment [facility] Breast Imaging - [facility] S [place] 1 [place], [place] 231461 04/27/2024 12:00 EST Appointment [facility] Hematology & Oncology [address] 398571 05/02/2024 15:00 EST Telemedicine [facility] Hematology & Oncology - [address] 893901 Alisson Carreon MD [address] [place] [address], Level 2 [place] [phone] 05/04/2024 10:15 EST Ancillary Procedure [facility] Cardiology - [place] [address] 05/04/2024 11:30 EST Appointment [facility] Hematology & Oncology - [address] 095671 05/04/2024 12:00 EST Appointment [facility] Hematology & Oncology - [address] [address] 06/12/2024 13:00 EST Appointment [facility] Radiology CT - [address] [address] documented as of this encounter Visit Diagnoses Not on filedocumented in this encounter Additional Health Concerns Infection Onset Date Last Indicated Resolved Time R/O COVID-19 12/12/2023 12/12/2023 12/12/2023 15:3 5 EDT R/O COVID-19 01/08/2024 01/08/2024 01/08/2024 18:2 6 EDT R/O COVID-19 01/16/2024 01/16/2024 01/16/2024 17:5 0 EDT documented as of this encounter Care Teams Skimmer Reverberatory Relationship Specialty Start Date End Date Linda Blancas MD [facility] [address] [place] [address] PCP - General 01/06/11 Adolfo Carreno MD [address] [place] [address] [phone] General Surgery 04/26/19 Augustina Colin MD PhD [address] [place] [phone] Medical Oncology 04/26/19 documented as of this encounter
--- OUTSIDE RECORDS SUMMARY | 2024-03-20 15:01 | XMS_ITS | Encounter Summary ---
Author Organization [facility] Address [address] [place] [address] Care Team Providers Care Senior Manager Asset Protection Name Role Phone Linda Blancas MD Primary Care Provider [phone] Adolfo Carreno MD Unavailable [phone] Augustina Colin MD PhD Unavailable Unavailable Reason for Visit * Reason Onset Date Comments Appointment Related 05/31/2019 Called to ca ncel infusion appointment for 06/07 Encounter Details Date Type Department Care Team (Late st Contact Info) Description 05/31/2019 Telephone [facility] Hematology & Oncology - [facility] [address] [place] [address] Infusion, Provider Appointment Related (Called to cancel infusion appointment for 06/07) Social History Tobacco Use Types Packs/Day Years [...] * Telephone Encounter - Nilson Arciniega - 05/31/2019 1436 EST Spoke with pt she is rescheduled for 06/04 @130 left PAC#. * Telephone Encounter - Ana Laura Saucedo - 05/31/2019 1415 EST PAS Message: Patient called to cancel appointment with INFUSION PROVIDER on 06/07 at 1:30pm due to other appointments being changed. Patient would like a call back to reschedule? Yes. Please call back to reschedule. documented in this encounter Plan of Treatment Upcoming Encounters Date Type Department Care Team (Late st Contact Info) Description 04/02/2024 10:30 EDT Appointment [facility] Interventional Radiology Unit [address] [place], [place] 389881 04/02/2024 15:15 EDT Office Visit [facility] Surgical Oncology - [facility] [address] [place], [place] [phone] Adolfo Carreno MD 111 [facility], Level 2 [place] [phone] 04/05/2024 9:30 EDT Telemedicine [facility] - [facility] Palliative Care Services [address] [place], [place] [phone] Chichi Woods MD 111 [facility], [address] [phone] 04/11/2024 15:00 EDT Telemedicine [facility] Hematology & Oncology - [address] 043871 Alisson Carreon MD [address] [place] [address], [facility] 2 [place] [phone] 04/13/2024 13:30 EDT Appointment [facility] Hematology & Oncology - [address] [phone] 04/13/2024 14:00 EDT Appointment [facility] Hematology & Oncology - [address] 508571 04/16/2024 10:00 EST Telemedicine [facility] - [facility] Palliative Care Services [address] [place] [address] Chichi Woods MD [address] [place] [address] [phone] 04/24/2024 9:00 EST Appointment [facility] Radiology CT Outpatient - [address] 769101 04/24/2024 11:00 EST Appointment [facility] Breast Imaging - [facility] S [address] 323081 04/27/2024 12:00 EST Appointment [facility] Hematology & Oncology - [address] 808731 05/02/2024 15:00 EST Telemedicine [facility] Hematology & Oncology - [address] 161801 Alisson Carreon MD [address] [place] [address], [facility] 2 [place] [phone] 05/04/2024 10:15 EST Ancillary Procedure [facility] Cardiology - [address] [place] [address] 05/04/2024 11:30 EST Appointment [facility] Hematology & Oncology [address] [address] 05/04/2024 12:00 EST Appointment [facility] Hematology & Oncology [address] 541231 06/12/2024 13:00 EST Appointment [facility] Radiology CT - [address] 519931 documented as of this encounter Visit Diagnoses Not on filedocumented in this encounter Care Teams Senior Manager Asset Protection Relationship Specialty Start Date End Date Linda Blancas MD [facility] [address] [place] [address] PCP - General 01/06/11 Adolfo Carreno MD [address] [place] [address] [phone] General Surgery 04/26/19 Augustina Colin MD PhD [address] [place] [phone] Medical Oncology 04/26/19 documented as of this encounter
--- OUTSIDE RECORDS SUMMARY | 2024-03-20 15:01 | XMS_ITS | Encounter Summary ---
Author Organization [facility] Address [address] [place] [address] Care Team Providers Care Surgical Coder Name Role Phone Linda Blancas MD Primary Care Provider [phone] Adolfo Carreno MD Unavailable [phone] Augustina Colin MD PhD Unavailable Unavailable Reason for Visit * Reason Onset Date Comments Post-OP Follow Up 05/31/2019 Encounter Details Date Type Department Care Team (Late st Contact Info) Description 05/31/2019 Telephone [facility] Plastic, Reconstructive & Cosmetic Surgery - [place] [facility], [address] [place] [address] Khurram Hamlin RN [address] [place] [address] Post-OP Follow Up Social History Tobacco Use [...] encounter Miscellaneous Notes * Telephone Encounter - Khurram Rios RN - 05/31/2019 1057 EST Post op follow up phone call was made 05/31/19 Patient condition was discuss with Sendy Type of Surgery:right TE to gel, left implant exchange Surgeon:Tylor Boss MD Date of Surgery:05/30/19 Appetite:wnl Bowels: no bm, will start a stool softener if needed Activity: wnl Drains: Drains none Incision and dressings:intact Pain:well controlled taking Dilaudid 2 mg 1 tab prn. ABX: yes Fever: no Voiding:wnl Problems/ Concerns none Additional Info / Patient education Call with any questions or concerns. Date of post-op/ follow up visit 06/04/19 at 11:15 KHURRAM RIOS RN documented in this encounter Plan of Treatment Upcoming Encounters Date Type Department Care Team (Late st Contact Info) Description 04/02/2024 10:30 EDT Appointment [facility] Interventional Radiology Unit [address] [place] [address] [phone] 04/02/2024 15:15 EDT Office Visit [facility] Surgical Oncology - [address] 726291 Adolfo Carreno MD 111 [facility], Level 2 [place] [phone] 04/05/2024 9:30 EDT Telemedicine [facility] - [facility] Palliative Care Services [address] [place], [place] 817561 Chichi Woods MD [address] [place] [address] 262 [place] [phone] 04/11/2024 15:00 EDT Telemedicine [facility] Hematology & Oncology [address] 544541 Alisson Carreon MD [address] [place] [address], Level [address] [place] [phone] 04/13/2024 13:30 EDT Appointment [facility] Hematology & Oncology [address] [phone] 04/13/2024 14:00 EDT Appointment [facility] Hematology & Oncology [address] 840961 04/16/2024 10:00 EST Telemedicine [facility] - [facility] Palliative Care Services [address] [place] [address] [phone] Chichi Woods MD [address] [place] [address] [phone] 04/24/2024 9:00 EST Appointment [facility] Radiology CT Outpatient - [address] 546121 04/24/2024 11:00 EST Appointment [facility] Breast Imaging - [facility] S [address] 083731 04/27/2024 12:00 EST Appointment [facility] Hematology & Oncology - [address] [phone] 05/02/2024 15:00 EST Telemedicine [facility] Hematology & Oncology - [address] 512111 Alisson Carreon MD [address] [place] [address] [phone] 05/04/2024 10:15 EST Ancillary Procedure [facility] Cardiology - [address] [place] [address] 05/04/2024 11:30 EST Appointment [facility] Hematology & Oncology - [address] 558411 05/04/2024 12:00 EST Appointment [facility] Hematology & Oncology [address] 061991 06/12/2024 13:00 EST Appointment [facility] Radiology CT - [address] 030921 documented as of this encounter Visit Diagnoses Not on filedocumented in this encounter Care Teams Surgical Coder Relationship Specialty Start Date End Date Linda Blancas MD [facility] [address] [place] [address] PCP - General 01/06/11 Adolfo Carreno MD [address] [place] [address] [phone] General Surgery 04/26/19 Augustina Colin MD PhD [address] [place] [phone] Medical Oncology 04/26/19 documented as of this encounter
--- OUTSIDE RECORDS SUMMARY | 2024-03-20 15:01 | XMS_ITS | Encounter Summary ---
Author Organization [facility] Address [address] [place] [address] Care Team Providers Care Employment Adjudicator Name Role Phone Linda Blancas MD Primary Care Provider [phone] Adolfo Carreno MD Unavailable [phone] Augustina Colin MD PhD Unavailable Unavailable Reason for Visit * Reason Comments Post-OP Follow Up bilateral implant ex change Encounter Details Date Type Department Care Team (Latest Contact Info) Description 06/04/2019 11:15 EST Post-op Visit [facility] Plastic, Reconstructive & Cosmetic Surgery - [address], [address] [place] [id number] Tylor Boss MD [address] [phone] S/P breast reconstruction (Primary Dx) [...] Progress Notes * Tylor Boss MD - 06/04/2019 1115 EST Sendy follows up after her 04/26/2019 removal of right tissue transit man and placement of silicone implant and exchange of her previous left silicone implant to a larger implant for matching. She reports that she is doing well. She is pleased with her results. She has good symmetry given that one is a [place] breast and the other a reconstructed breast. Tapes were changed without difficulty and the incisions appear to be healing nicely with no signs of infection or dehiscence. Her pain is well controlled. Signs and symptoms of potential complications were discussed. She knows to call with questions or concerns. Sendy will follow-up 6 weeks from the date of surgery. documented in this encounter Plan of Treatment Upcoming Encounters Date Type Department Care Team (Late st Contact Info) Description 04/02/2024 10:30 EDT Appointment [facility] Interventional Radiology Unit [address] [place] [address] [phone] 04/02/2024 15:15 EDT Office Visit [facility] Surgical Oncology - [facility] [address] [place], [place] [phone] Adolfo Carreno MD [address] [facility], Level [address] [place] [phone] 04/05/2024 9:30 EDT Telemedicine [facility] - [facility] Palliative Care Services [address] [place], [place] 045[address] Chichi Woods MD [address] [place] [address] [address] [place] [phone] 04/11/2024 15:00 EDT Telemedicine [facility] Hematology & Oncology - [address] [phone] Alisson Carreon MD [address] [place] [address], Level [address] [place] [phone] 04/13/2024 13:30 EDT Appointment [facility] Hematology & Oncology [address] [phone] 04/13/2024 14:00 EDT Appointment [facility] Hematology & Oncology [address] [address] 04/16/2024 10:00 EST Telemedicine [facility] - [facility] Palliative Care Services [address] [place] [address] Chichi Woods MD [address] [place] [phone] 04/24/2024 9:00 EST Appointment [facility] Radiology CT Outpatient - [address] [id number] 04/24/2024 11:00 EST Appointment [facility] Breast Imaging - [address] [id number] 04/27/2024 12:00 EST Appointment [facility] Hematology & Oncology - [address] [phone] 05/02/2024 15:00 EST Telemedicine [facility] Hematology & Oncology - [address] [phone] Alisson Carreon MD [address] [place] [address] 2 [place] [phone] 05/04/2024 10:15 EST Ancillary Procedure [facility] Cardiology - [address] [place] [address] 05/04/2024 11:30 EST Appointment [facility] Hematology & Oncology - [address] [phone] 05/04/2024 12:00 EST Appointment [facility] Hematology & Oncology [address] [id number] 06/12/2024 13:00 EST Appointment [facility] Radiology CT - [address] [phone] documented as of this encounter Visit Diagnoses Diagnosis S/P breast reconstruction- Primary Breast replaced by other means documented in this encounter Care Teams Employment Adjudicator Relationship Specialty Start Date End Date Linda Blancas MD [facility] [address] [place] [address] PCP - General 01/06/11 Adolfo Carreno MD [address] [place] [phone] General Surgery 04/26/19 Augustina Colin MD PhD [address] [place] [phone] Medical Oncology 04/26/19 documented as of this encounter
--- OUTSIDE RECORDS SUMMARY | 2024-03-20 15:01 | XMS_ITS | Encounter Summary ---
Author Organization [facility] Address [address] [place] [address] Care Team Providers Care Hogshead Mat Inspector Name Role Phone Linda Blancas MD Primary Care Provider [phone] Adolfo Carreno MD Unavailable [phone] Augustina Colin MD PhD Unavailable Unavailable Reason for Visit * Laboratory Services (Routine) - Order Cancelled Specialty Diagnoses / Procedures Referred By Doug hearn Referred To Contact Diagnoses Metastatic breast cancer Procedures COMPLETE BLOOD COUNT AND DIFFERENTIAL Augustina Colin MD PhD Referral ID Status Reason Start Date Expiration Date V isits Requested Visits Authorized [id number] Order Cancelled 03/13/2019 1 1 Encounter Details Date Type Department Care Team (Late st Contact Info) Description 01/01/2020 11:45 EDT Phlebotomy Only [facility] ED Center 2 Phlebotomy [address] [place], [place] [address] Bridge Engineer, Acc Phlebotomy Metastatic breast cancer (HCC-CMS) (Primary [...] [facility] [address] [place] [address] [phone] 04/02/2024 15:15 EDT Office Visit [facility] Surgical Oncology - [address] [phone] Adolfo Carreno MD [address] [place] [address], [facility] [address] [place] [phone] 04/05/2024 9:30 EDT Telemedicine [facility] - [facility] Palliative Care Services [address] [place], [place] [address] Chichi Woods MD [address] [place] [address], [place] [address] [place] [phone] 04/11/2024 15:00 EDT Telemedicine [facility] Hematology & Oncology - [address] [phone] Alisson Carreon MD [address] [place] [address], Level [address] [place] [phone] 04/13/2024 13:30 EDT Appointment [facility] Hematology & Oncology [address] [id number] 04/13/2024 14:00 EDT Appointment [facility] Hematology & Oncology - [address] [phone] 04/16/2024 10:00 EST Telemedicine [facility] - [facility] Palliative Care Services [address] [place] [address] [phone] Chichi Woods MD [address] [place] [address], [place] [address] [place] [phone] 04/24/2024 9:00 EST Appointment [facility] Radiology CT Outpatient - [address] [id number] 04/24/2024 11:00 EST Appointment [facility] Breast Imaging - [facility] [address] 100921 04/27/2024 12:00 EST Appointment [facility] Hematology & Oncology - [address] [phone] 05/02/2024 15:00 EST Telemedicine [facility] Hematology & Oncology - [address] [phone] Alisson Carreon MD [address] [place] [address], Level [address] [place] [phone] 05/04/2024 10:15 EST Ancillary Procedure [facility] Cardiology - [address] [place], [place] [phone] 05/04/2024 11:30 EST Appointment [facility] Hematology & Oncology - [address] [address] 05/04/2024 12:00 EST Appointment [facility] Hematology & Oncology [address] [address] 06/12/2024 13:00 EST Appointment [facility] Radiology CT - [address] [address] documented as of this encounter Procedures Procedure Name Priority Date/Time Associated Diagnosis Comments COMPREHENSIVE METABOLIC PANEL (ONCOLOGY USE ONLY-INC MG) STAT 01/01/2020 11:46 EDT Metastatic breast cancer (HCC-CMS) CA 27.29 Routine 01/01/2020 11:46 EDT Metastatic breast cancer (HCC-CMS) COMPLETE BLOOD COUNT AND DIFFERENTIAL Routine 01/01/2020 11:46 EDT Metastatic breast cancer ([facility]) PHOSPHORUS STAT 01/01/2020 11:46 EDT Metastatic breast cancer (HCC-CMS) documented in this encounter Results * (ABNORMAL) COMPREHENSIVE METABOLIC PANEL (ONCOLOGY USE ONLY-INC MG) (01/01/2020 11:46 EDT) Sodium 141 136 - 145 mEq/L 01/01/2020 12:07 [facility] Potassium 5.5(H) 3.5 - 5.0 mEq/L 01/01/2020 12:07 [facility] Chloride 107 96 - 110 mEq/L 01/01/2020 12:07 [facility] CO2 Total 29 22 - 32 mEq/L 01/01/2020 12:07 [facility] Glucose 97 70 - 100 mg/dL 01/01/2020 12:07 [facility] BUN 21 10 - 26 mg/dL 01/01/2020 12:07 [facility] Creatinine 0.67 0.52 - 1.04 mg/dL 01/01/2020 12:07 [facility] eGFR 97 >60 mL/min/1.7 3m2 01/01/2020 12:07 [facility] Comment:eGFR calculated gordo ureña CKD-EPI equation for non- Americans. Multiply eGFR by 1.16 for patients. Total Protein 6.8 6.3 - 8.2 g/dL 01/01/2020 12:07 [facility] Albumin 4.1 3.4 - 4.9 g/dL 01/01/2020 12:07 [facility] Alkaline Phosphatase 69 38 - 126 U/L 01/01/2020 12:07 [facility] AST 33 15 - 46 U/L 01/01/2020 12:07 [facility] ALT 25 <35 U/L 01/01/2020 12:07 [facility] Bilirubin, Total 0.5 <1.4 mg/dL 01/01/20 20 12:07 [facility] Calcium 9.5 8.5 - 10.5 mg/dL 01/01/2020 12:07 [facility] Calculated Calcium 9.4 8.5 - 10.5 mg/dL 01/01/2020 12:07 [facility] Magnesium 2.2 1.7 - 2.8 mg/dL 01/01/2020 12:07 [facility] Blood VENOUS BLOOD / Unknown Venipuncture / Unknown 01/01/2020 11:46 EDT 01/01/2020 11:49 EDT Vanessa Rollins NP CHEMISTRY & BLOOD GA S ORDERABLES [facility] [address] [place] [address] * PHOSPHORUS (01/01/2020 11:46 EDT) Phosphorus 3.4 2.5 - 4.5 mg/dL 01/01/2020 12:07 [facility] Blood VENOUS BLOOD / Unknown Venipuncture / Unknown 01/01/2020 11:46 EDT 01/01/2020 11:49 EDT Vanessa Rollins FUNERAL LOCATION MANAGER CHEMISTRY & BLOOD WA S ORDERABLES Performing Organization Address [facility] Co de Phone Number [facility] [address] [place] [address] * (ABNORMAL) CA 27.29 (01/01/2020 11:46 EDT) CA 27.29 56.5(H) <38.0 U/mL 01/02/2020 8:59 EDT [facility] Comment: NOTE: Serum CA 27.29 concentration should not be interpreted as absolute evidence for the presence or absence of malignant disease. Assayed on Siemens Compute[employer] Simple-Fillaur XPT using chemiluminescent technology. ??Values obtained by using different assay methods cannot be used interchangeably. Blood VENOUS BLOOD / Unknown Venipuncture / Unknown 01/01/2020 11:46 EDT 01/01/2020 11:49 EDT Augustina Colin MD PhD CHEMISTRY & BLOOD WA S ORDERABLES Performing Organization Address [facility] Co de Phone Number [facility] [address] [place] [address] * COMPLETE BLOOD COUNT AND DIFFERENTIAL (01/01/2020 11:46 EDT) WBC 5.44 4.00 - 12.40 K/cmm 01/01/2020 11:57 EDT [facility] RBC 4.06 3.86 - 5.04 M/cmm 01/01/2020 11:57 T [facility] Hemoglobin 13.5 11.6 - 15.2 gm/dL 01/01/2020 11:57 EDT [facility] HCT 39.4 34.9 - 44.4 % 01/01/2020 11:57 [facility] MCV 97 81 - 98 fl 01/01/2020 11:57 EDT [facility] MCH 33.3 26.7 - 33.3 pg 01/01/2020 11:57 T [facility] MCHC 34.3 32.1 - 35.9 gm/dL 01/01/2020 11:57 T [facility] RDW-CV 12.0 <14.7 % 01/01/2020 11:57 [facility] RDW-SD 43.5 <50.4 fl 01/01/2020 11:57 [facility] PLT 233 141 - 377 K/cmm 01/01/2020 11:57 [facility] MPV 10.2 9.5 - 12.7 fl 01/01/2020 11:57 [facility] % Neutrophils 46.6 % 01/01/2020 11:57 [facility] % Lymphocytes 41.5 % 01/01/2020 11:57 [facility] % Monocytes 8.5 % 01/01/2020 11:57 [facility] % Eosinophils 2.6 % 01/01/2020 11:57 [facility] % Basophils 0.6 % 01/01/2020 11:57 [facility] % Immature Grans 0.2 % 01/01/20 20 11:57 [facility] Absolute Neutrophils 2.54 2.20 - 8.85 K/cmm 01/01/2020 11:57 [facility] Absolute Lymphocytes 2.26 1.09 - 3.30 K/cmm 01/01/2020 11:57 [facility] Absolute Monocytes 0.46 0.10 - 0.80 K/cmm 01/01/2020 11:57 [facility] Absolute Eosinophils 0.14 0.03 - 0.61 K/cmm 01/01/2020 11:57 [facility] ABS Basophils 0.03 0.01 - 0.11 K/cmm 01/01/2020 11:57 [facility] Absolute Immature Grans 0.01 0.00 - 0.06 K/cmm 01/01/2020 11:57 [facility] Type of Differential: Auto 01/01/2020 11:57 [facility] Blood VENOUS BLOOD / Unknown Venipuncture / Unknown 01/01/2020 11:46 EDT 01/01/2020 11:49 EDT Augustina Colin MD PhD PACKAGES & DNA PROBE ORDERABLES [facility] [address] [place] [address] documented in this encounter Visit Diagnoses Diagnosis Metastatic breast cancer- Primary documented in this encounter Care Teams Hogshead Mat Inspector Relationship Specialty Start Date End Date Linda Blancas MD [facility] [address] [place] [address] PCP - General 01/06/11 Adolfo Carreno MD [address] [place] [phone] General Surgery 04/26/19 Augustina Colin MD PhD [address] [place] [address] 2 [place] [phone] Medical Oncology 04/26/19 documented as of this encounter
--- OUTSIDE RECORDS SUMMARY | 2024-03-20 15:01 | XMS_ITS | Encounter Summary ---
Author Organization [facility] Address [address] [place] [address] Care Team Providers Care Clearance Cutter Name Role Phone Linda Blancas MD Primary Care Provider Adolfo Carreno MD Unavailable [phone] Augustina Colin MD PhD Unavailable Unavailable Reason for Referral * Laboratory Services (Routine) - Order Cancelled Specialty Diagnoses / Procedures Referred By Doug hearn Referred To Contact Diagnoses Metastatic breast cancer Procedures COMPLETE BLOOD COUNT AND DIFFERENTIAL Augustina Colin MD PhD Referral ID Status Reason Start Date Expiration Date V isits Requested Visits Authorized [id number] Order Cancelled 03/13/2019 1 1 Reason for Visit * Reason Comments Infusion * Laboratory Services (Routine) - Order Cancelled Specialty Diagnoses / Procedures Referred By Doug hearn Referred To Contact Diagnoses Metastatic breast cancer Procedures COMPLETE BLOOD COUNT AND DIFFERENTIAL Augustina Colin MD PhD Referral ID Status Reason Start Date Expiration Date V isits Requested Visits Authorized [id number] Order Cancelled 03/13/2019 1 1 Encounter Details Date Type Department Care Team (Latest Contact Info) Description 06/04/2019 13:30 EST - 06/05/2019 23:59 EST Hospital Encounter [facility] Cancer Center Hematology & Oncology - [facility] [address] [place], [place] [address] Metastatic breast cancer (HCC-CMS) (Primary Dx); Osteopenia [...] Sign Reading Time Taken Comments Blood Pressure 135/62 06/04/2019 1430 EST Pulse 84 06/04/2019 1430 EST Temperature 36.7 ??C (98 ??F) 06/04/2019 1430 EST Respiratory Rate 18 06/04/2019 1430 EST Oxygen Saturation 100% 06/04/2019 1430 EST Inhaled Oxygen Concentration - - Weight 62.3 kg (137 lb 6.4 oz) 06/04/[address] Height - - Body Mass Index 25.54 05/07/2019 0913 EST documented in this encounter Functional Status [...] hours as needed for Pain. 08/30/2018 05/26/2021 cephALEXin (KEFLEX) 500 mg capsule Take 1 Cap by mouth every 6 hours for 7 days. 28 Cap 05/30/2019 06/06/2019 DOXYLAMINE SUCCINATE (UNISOM ORAL) Take by mouth as needed. Takes half a tablet 02/02/2011 01/13/2022 gabapentin (NEURONTIN) 100 mg capsule Take 2 Caps by mouth 2 times daily. 360 Cap 3 08/16/2012 12/14/2023 HYDROmorphone (DILAUDID) 2 mg tablet Take 1-2 Tabs by mouth every 4 hours as needed for Pain. Daily Max: 24 mg 8 Tab 05/30/2019 05/14/2020 ibuprofen (MOTRIN) 200 mg tablet Take 2 Tablets by mouth as needed. 12/07/2023 letrozole (FEMARA) 2.5 mg tabletIndications:Keagan price history of malignant neoplasm of breast,Breast lump TAKE 1 TABLET DAILY 90 Tab 3 01/15/2019 01/10/2020 mv-mn/C/glutamin/lysin/he rb124 (AIRBORNE, ASCORBATE SODIUM, ORAL) Take [...] in this encounter Progress Notes * Deana Jackson, SHELLEY - 06/04/2019 1610 EST Outpatient Infusion Note Sendy presents to clinic today for C1D1 Zometa treatment plan. Reviewed lab results with Sendy. Chemistry: Lab Results Component Value Date NA 138 06/04/2019 K 3.9 06/04/2019 BUN 17 06/04/2019 CREATININE 0.64 06/04/2019 CALCIUM 9.9 06/04/2019 MG 2.1 06/04/2019 Creatinine clearance = 84. Parameters for today???s treatment met Patient noted with Peripheral IV Left forearm for access. PIV flushed, site patent, unremarkable and without redness and brisk blood return noted before and after Zometa infusion. Reports no changes to dental history or new mouth/jaw pain. Patient received Zometa over 20 minutes (see MAR). Sendy tolerated infusion with no sign of reaction or side effects. Patient Education Topic: Zometa infusion and side effects Method: Handout and Verbal Taught to: Patient Barriers: None Outcomes: independent and verbalized understanding Patient' s Peripheral IV Left forearm noted to have brisk blood return and device flushed per hospital policy. Access site noted to be patent, unremarkable and without redness. PIV removed, gauze andcoband dressing applied. I was supervised by Dr. Bishop who was present and immediately available in the office suite. DEANA JACKSON RN documented in this encounter Miscellaneous Notes * Addendum Note - Usha Mccann - 06/05/2019 2359 [facility] addended by: Usha Mccann on: 06/21/2019 10:53 Actions taken: Charge Capture section accepted documented in this encounter Plan of Treatment Upcoming Encounters Date Type Department Care Team (Late st Contact Info) Description 04/02/2024 10:30 EDT Appointment [facility] Interventional Radiology Unit [address] [place] [address] [phone] 04/02/2024 15:15 EDT Office Visit [facility] Surgical Oncology - [address] [phone] Adolfo Carreno MD [address] [facility], [facility], Level [address] [place] [phone] 04/05/2024 9:30 EDT Telemedicine [facility] [address] [place] [address] [phone] Chichi Woods MD [address] [place] [phone] 04/11/2024 15:00 EDT Telemedicine [facility] Hematology & Oncology [address] [phone] Alisson Carreon MD [address] [place] [address], [address] [place] [phone] 04/13/2024 13:30 EDT Appointment [facility] Hematology & Oncology [address] [phone] 04/13/2024 14:00 EDT Appointment [facility] Hematology & Oncology [address] [phone] 04/16/2024 10:00 EST Telemedicine [facility] Palliative Care Services [address] [place] [address] [phone] Chichi Woods MD [address] [place] [phone] 04/24/2024 9:00 EST Appointment [facility] Radiology CT Outpatient - [address] [place] [address] [phone] 04/24/2024 11:00 EST Appointment [facility] Breast Imaging - [address] [phone] 04/27/2024 12:00 EST Appointment [facility] Hematology & Oncology - [address] [phone] 05/02/2024 15:00 EST Telemedicine [facility] Hematology & Oncology - [address] [phone] Alisson Carreon MD [address] [facility], [facility], Level [address] [place] [phone] 05/04/2024 10:15 EST Ancillary Procedure [facility] Cardiology - [address] [place], [place] [phone] 05/04/2024 11:30 EST Appointment [facility] Hematology & Oncology - [facility] [address] [place], [place] [address] 05/04/2024 12:00 EST Appointment [facility] Hematology & Oncology [address] [phone] 06/12/2024 13:00 EST Appointment [facility] Radiology CT - [facility] [address] [place], [place] [phone] documented as of this encounter Procedures Procedure Name Priority Date/Time Associated Diagnosis Comments COMPREHENSIVE METABOLIC PANEL (ONCOLOGY USE ONLY-INC MG) STAT 06/04/2019 14:48 EST Metastatic breast cancer (HCC-CMS) COMPLETE BLOOD COUNT AND DIFFERENTIAL Routine 06/04/2019 14:48 EST Metastatic breast cancer (HCC-CMS) PHOSPHORUS STAT 06/04/2019 14:48 EST Metastatic breast cancer (HCC-CMS) documented in this encounter Results * (ABNORMAL) COMPREHENSIVE METABOLIC PANEL (ONCOLOGY USE ONLY-INC MG) (06/04/2019 14:48 EST) Sodium 138 136 - 145 mEq/L 06/04/2019 15:06 [facility] Potassium 3.9 3.5 - 5.0 mEq/L 06/04/2019 15:06 [facility] Chloride 101 96 - 110 mEq/L 06/04/2019 15:06 [facility] CO2 Total 29 22 - 32 mEq/L 06/04/2019 15:06 [facility] Glucose 124(H) 70 - 100 mg/dL 06/04/2019 15:06 [facility] BUN 17 10 - 26 mg/dL 06/04/2019 15:06 [facility] Creatinine 0.64 0.52 - 1.04 mg/dL 06/04/2019 15:06 [facility] eGFR 99 >60 mL/min/1.7 3m2 06/04/2019 15:06 [facility] Comment:eGFR calculated gordo ureña CKD-EPI equation for non- Americans. Multiply eGFR by 1.16 for patients. Total Protein 7.3 6.3 - 8.2 g/dL 06/04/2019 15:06 [facility] Albumin 4.3 3.4 - 4.9 g/dL 06/04/2019 15:06 [facility] Alkaline Phosphatase 154(H) 38 - 126 U/L 06/04/2019 15:06 [facility] AST 78(H) 15 - 46 U/L 06/04/2019 15:06 [facility] ALT 127(H) <35 U/L 06/04/2019 15:06 [facility] Bilirubin, Total <0.5 <1.4 mg/dL 06/04/20 19 15:06 [facility] Calcium 9.9 8.5 - 10.5 mg/dL 06/04/2019 15:06 [facility] Calculated Calcium 9.7 8.5 - 10.5 mg/dL 06/04/2019 15:06 [facility] Magnesium 2.1 1.7 - 2.8 mg/dL 06/04/2019 15:06 [facility] Blood VENOUS BLOOD / Unknown Venipuncture / Unknown 06/04/2019 14:48 EST 06/04/2019 14:48 EST Vanessa Rollins NP CHEMISTRY & BLOOD GA S ORDERABLES [facility] [address] [place] [address] * PHOSPHORUS (06/04/2019 14:48 EST) Phosphorus 4.5 2.5 - 4.5 mg/dL 06/04/2019 15:06 [facility] Blood VENOUS BLOOD / Unknown Venipuncture / Unknown 06/04/2019 14:48 EST 06/04/2019 14:48 EST Vanessa R Ria OSCAR CHEMISTRY & BLOOD GA S ORDERABLES [facility] [address] [place] [address] * COMPLETE BLOOD COUNT AND DIFFERENTIAL (06/04/2019 14:48 EST) WBC 6.28 4.00 - 12.40 K/cmm 06/04/2019 15:02 [facility] RBC 4.15 3.86 - 5.04 M/cmm 06/04/2019 15:02 [facility] Hemoglobin 13.5 11.6 - 15.2 gm/dL 06/04/2019 15:02 [facility] HCT 39.7 34.9 - 44.4 % 06/04/2019 15:02 [facility] MCV 96 81 - 98 fl 06/04/2019 15:02 [facility] MCH 32.5 26.7 - 33.3 pg 06/04/2019 15:02 [facility] MCHC 34.0 32.1 - 35.9 gm/dL 06/04/2019 15:02 [facility] RDW-CV 11.7 <14.7 % 06/04/2019 15:02 [facility] RDW-SD 40.9 <50.4 fl 06/04/2019 15:02 [facility] PLT 289 141 - 377 K/cmm 06/04/2019 15:02 [facility] MPV 10.2 9.5 - 12.7 fl 06/04/2019 15:02 [facility] % Neutrophils 55.4 % 06/04/2019 15:02 [facility] % Lymphocytes 34.6 % 06/04/2019 15:02 [facility] % Monocytes 7.8 % 06/04/2019 15:02 [facility] % Eosinophils 1.3 % 06/04/2019 15:02 [facility] % Basophils 0.6 % 06/04/2019 15:02 [facility] % Immature Grans 0.3 % 06/04/20 19 15:02 [facility] Absolute Neutrophils 3.48 2.20 - 8.85 K/cmm 06/04/2019 15:02 [facility] Absolute Lymphocytes 2.17 1.09 - 3.30 K/cmm 06/04/2019 15:02 [facility] Absolute Monocytes 0.49 0.10 - 0.80 K/cmm 06/04/2019 15:02 [facility] Absolute Eosinophils 0.08 0.03 - 0.61 K/cmm 06/04/2019 15:02 [facility] ABS Basophils 0.04 0.01 - 0.11 K/cmm 06/04/2019 15:02 [facility] Absolute Immature Grans 0.02 0.00 - 0.06 K/cmm 06/04/2019 15:02 [facility] Type of Differential: Auto 06/04/2019 15:02 [facility] Blood 06/04/2019 14:4 8 EST 06/04/2019 14:48 EST Augustina Colin MD PhD PACKAGES & DNA PROBE ORDERABLES Performing Organization Address City/State/[facility] Co de Phone Number [facility] [address] [place] [address] documented in this encounter Visit Diagnoses Diagnosis Metastatic breast cancer- Primary Osteopenia of necks of both femurs documented in this encounter Administered Medications Inactive Administered Medications - up to 3 most recent administrations Medication Order MAR Action Action Date Dose Rate Site sodium chloride 0.9 % (NS) infusion at 100 mL/hr, 250 mL, intravenous, CONTINUOUS, Starting on 06/04/19 at 1515, Until Tu06/05/19 at 1514, Routine New Bag 06/04/2019 15:15 EST 250 mL 75 mL/hr zoledronic acid (ZOMETA) IVPB 4 mg 4 mg, intravenous, Administer over 20 Minutes, NOW X1, 1 dose, On 06/04/19 at 1515, Routine Given 06/04/2019 15:30 EST 4 mg documented in this encounter Orders Medications Ordered That Vj ht Not Have Been Administered Count Last Ordered Date First Ordered Date sodium chloride 0.9 % (flush) flush 20 mL 1 06/04/2019 Nursing Count Last Ordered Date First Orde red Date INFORMED CONSENT 1 06/04/2019 documented in this encounter Care Teams Clearance Cutter Relationship Specialty Start Date End Date Linda Blancas MD [address] [place] [address] PCP - General 01/06/11 Adolfo Carreno MD [address] [place] [address] 2 [place] [phone] General Surgery 04/26/19 Augustina Colin MD PhD [address] [place] [address] 2 [place] [phone] Medical Oncology 04/26/19 documented as of this encounter
--- OUTSIDE RECORDS SUMMARY | 2024-03-20 15:01 | XMS_ITS | Encounter Summary ---
Author Organization [facility] Address [address] [place] [address] Care Team Providers Care Nurse Aide Name Role Phone Linda Blancas MD Primary Care Provider [phone] Adolfo Carreno MD Unavailable Augustina Colin MD PhD Unavailable Unavailable Reason for Visit * Reason Comments Chemotherapy Encounter Details Date Type Department Care Team (Latest Contact Info) Description 01/02/2020 13:45 EDT - 01/02/2020 23:59 EDT Hospital Encounter [facility] Cancer Center Hematology & Oncology - [facility] [place] [address] [place] [address] Osteopenia of necks of both femurs (Primary [...] Reading Time Taken Comments Blood Pressure 149/70 01/02/2020 1401 EDT Pulse 78 01/02/2020 1401 EDT Temperature 36.8 ??C (98.3 ??F) 01/02/2020 1401 EDT Respiratory Rate 15 01/02/2020 1401 EDT Oxygen Saturation 100% 01/02/2020 140 EDT Inhaled Oxygen Concentration - - Weight 61.5 kg (135 lb 9.6 oz) 01/02/2020 1401 E DT Height 156.2 cm (5' 1.5) 01/02/2020 1401 EDT Body Mass Index 25.21 01/02/2020 1401 EDT documented in this encounter Functional Status [...] documented in this encounter Progress Notes * Kathrin Trejo, SHELLEY - 01/02/2020 1644 EDT Patient presents to clinic today for cycle # 2 , day # 1 of Zometa treatment plan. Reviewed lab results with patient Chemistry: Lab Results Component Value Date NA 141 01/01/2020 K 5.5 (H) 01/01/2020 BUN 21 01/01/2020 CREATININE 0.67 01/01/2020 CALCIUM 9.5 01/01/2020 MG 2.2 01/01/2020 LFT: Lab Results Component Value Date TBIL 0.5 01/01/2020 ALKPHOS 69 01/01/2020 AST 33 01/01/2020 ALT 25 01/01/2020 . Parameters for today???s treatment met Patient noted with Peripheral IV Left forearm for access. IV flushed, site patent, unremarkable andwithout redness and brisk blood return noted before and after all chemotherapy and biotherapy infusions. Patient received zometa over 20 minutes. Patient' s Peripheral IV Left forearm noted to have brisk blood return and device flushed per hospital policy. Access site noted to be patent, unremarkable and without redness I was supervised by Dr. Lopez who was present and immediately available in the office suite. KATHRIN TREJO RN 01/02/2020 documented in this encounter Miscellaneous Notes * Addendum Note - Reta Kuhn - 01/02/2020 1345 EDTEncounter addended by: Reta Kuhn on: 01/16/2020 7:28 Actions taken: Charge Capture section accepted documented in this encounter Plan of Treatment Upcoming Encounters Date Type Department Care Team (Late st Contact Info) Description 04/02/2024 10:30 EDT Appointment [facility] Interventional Radiology Unit [address] [place] [address] [phone] 04/02/2024 15:15 EDT Office Visit [facility] Surgical Oncology - [facility] [address], [place] [phone] Adolfo Carreno MD 111 [facility], [facility], Level [address] [place] [phone] 04/05/2024 9:[address] [facility] - [facility] Palliative Care Services [address], [place] [phone] Chichi Woods MD 111 [facility], [address] [place] [phone] 04/11/2024 15:00 EDT Telemedicine [facility] Hematology & Oncology - [address] [phone] Alisson Carreon MD [address] [place] [address] 2 [place] [phone] 04/13/2024 13:30 EDT Appointment [facility] Hematology & Oncology [address] [phone] 04/13/2024 14:00 EDT Appointment [facility] Hematology & Oncology [address] [phone] 04/16/2024 10:[address] [facility] - [facility] Palliative Care Services [address] [place] [address] [phone] Chichi Woods MD [address] [place] [address] [address] [place] [phone] 04/24/2024 9:00 EST Appointment [facility] Radiology CT Outpatient - [address] [phone] 04/24/2024 11:00 EST Appointment [facility] Breast Imaging - [address] [phone] 04/27/2024 12:00 EST Appointment [facility] Hematology & Oncology - [address] [phone] 05/02/2024 15:00 EST Telemedicine [facility] Hematology & Oncology - [address] [phone] Alisson Carreon MD [address] [place] [address] 2 [place] [phone] 05/04/2024 10:15 EST Ancillary Procedure [facility] Cardiology - [address] [place] [address] 05/04/2024 11:30 EST Appointment [facility] Hematology & Oncology [address] [phone] 05/04/2024 12:00 EST Appointment [facility] Hematology & Oncology [address] [phone] 06/12/2024 13:00 EST Appointment [facility] Radiology CT - [address] [phone] documented as of this encounter Visit Diagnoses Diagnosis Osteopenia of necks of both femurs- Primary documented in this encounter Administered Medications Inactive Administered Medications - up to 3 most recent administrations Medication Order MAR Action Action Date Dose Rate Site sodium chloride 0.9 % (NS) infusion at 100 mL/hr, 250 mL, intravenous, CONTINUOUS, Starting on Tue01/02/20 at 1430, Until Michelle 01/03/20 at 1419, Routine New Bag 01/02/2020 14:20 EDT 250 mL 100 mL/hr zoledronic acid (ZOMETA) IVPB 4 mg 4 mg, intravenous, Administer over 20 Minutes, NOW X1, 1 dose, On Tue01/02/20 at 1430, Routine New Bag 01/02/2020 14:20 EDT 4 mg documented in this encounter Care Teams Nurse Aide Relationship Specialty Start Date End Date Linda Blancas MD [address] [place] [address] PCP - General 01/06/11 Adolfo Carreno MD [address] [facility], [facility] [address] [place] [phone] General Surgery 04/26/19 Augustina Colin MD PhD [address] [place] [address], [facility] [address] [place] [phone] Medical Oncology 04/26/19 documented as of this encounter
--- OUTSIDE RECORDS SUMMARY | 2024-03-20 15:01 | XMS_ITS | Encounter Summary ---
Author Organization [facility] Address [address] [place] [address] Care Team Providers Care Supply Controller Name Role Phone Linda Blancas MD Primary Care Provider [phone] Adolfo Carreno MD Unavailable [phone] Augustina Colin MD PhD Unavailable Unavailable Reason for Visit * Reason Onset Date Comments Appointment Related 11/14/2019 Encounter Details Date Type Department Care Team (Late st Contact Info) Description 11/14/2019 Telephone [facility] Hematology & Oncology - Main [place] [address], [place] [address] Augustina Colin, PhD Appointment Related Social History [...] * Telephone Encounter - Nilson Arciniega - 11/14/2019 1220 EDT Spoke with pt about no appt in November due to dental work new appt 01/01 check in @145 kd @230 tx afterleft PAC# documented in this encounter Plan of Treatment Upcoming Encounters Date Type Department Care Team (Late st Contact Info) Description 04/02/2024 10:30 EDT Appointment [facility] Interventional Radiology Unit [address] [place] [address] [phone] 04/02/2024 15:15 EDT Office Visit [facility] Surgical Oncology - [address] [phone] Adolfo Carreno MD [address] [place] [address] 2 [place] [phone] 04/05/2024 9:30 EDT Telemedicine [facility] - [facility] Palliative Care Services [address] [place] [address] [phone] Chichi Woods MD [address] [place] [address], [address] [phone] 04/11/2024 15:[address] [facility] Hematology & Oncology - [address] [phone] Alisson Carreon MD [address] [place] [address], [facility] 2 [place] [phone] 04/13/2024 13:[address] [facility] Hematology & Oncology - [address] 819201 04/13/2024 14:[address] [facility] Hematology & Oncology [address] [address] 04/16/2024 10:00 EST Telemedicine [facility] - [facility] Palliative Care Services [address] [place] [address] [phone] Chichi Woods MD [address] [place] [address], [address] [phone] 04/24/2024 9:00 EST Appointment [facility] Radiology CT Outpatient - [address] 117191 04/24/2024 11:00 EST Appointment [facility] Breast Imaging - [facility] [address] [place], [place] 409501 04/27/2024 12:[address] [facility] Hematology & Oncology [address] 536301 05/02/2024 15:[address] [facility] Hematology & Oncology [address] 684251 Alisson Carreon MD [address] [place] [address], Level [address] [place] [phone] 05/04/2024 10:15 EST Ancillary Procedure [facility] Cardiology - [place] [address] 05/04/2024 11:[address] [facility] Hematology & Oncology [address] 555851 05/04/2024 12:[address] [facility] Hematology & Oncology - [address] [address] 06/12/2024 13:00 [facility] Radiology CT - [facility] [address] [place], [place] 7[address] documented as of this encounter Visit Diagnoses Not on filedocumented in this encounter Care Teams Supply Controller Relationship Specialty Start Date End Date Linda Blancas MD [facility] [address] [place] [address] PCP - General 01/06/11 Adolfo Carreno MD [address] [place] [address], [facility] 2 [place] [phone] General Surgery 04/26/19 Augustina Colin MD PhD [address] [place] [address], [facility] 2 [place] [phone] Medical Oncology 04/26/19 documented as of this encounter
--- OUTSIDE RECORDS SUMMARY | 2024-03-20 15:01 | XMS_ITS | Encounter Summary ---
Author Organization [facility] Address [address] [place] [address] Care Team Providers Care Propeller Driven Airplane Mechanic Name Role Phone Linda Blancas MD Primary Care Provider [phone] Adolfo Carreno MD Unavailable [phone] Augustina Colin MD PhD Unavailable Unavailable Encounter Details Date Type Department Care Team (Late st Contact Info) Description 01/01/2020 Orders Only [facility] Cancer Center Hematology & Oncology - [facility] [address] [place] [address] Augustina Colin, PhD Osteopenia of necks of both femurs (Primary [...] Info) Description 04/02/2024 10:30 EDT Appointment [facility] Interventional Radiology Unit [address] [place] [address] [phone] 04/02/2024 15:15 EDT Office Visit [facility] Surgical Oncology - [address] [phone] Adolfo Carreno MD [address] [place] [phone] 04/05/2024 9:30 EDT Telemedicine [facility] Palliative Care Services [address] [place] [address] [phone] Chichi Woods MD [address] [place] [phone] 04/11/2024 15:00 EDT Telemedicine [facility] Hematology & Oncology [address] [phone] Alisson Carreon MD [address] [place] [address] 2 [place] [phone] 04/13/2024 13:30 EDT Appointment [facility] Hematology & Oncology [address] [id number] 04/13/2024 14:00 EDT Appointment [facility] Hematology & Oncology [address] [id number] 04/16/2024 10:00 EST Telemedicine [facility] Palliative Care Services [address] [place], [place] 293521 Chichi Woods MD [address] [place] [address], [address] [phone] 04/24/2024 9:00 EST Appointment [facility] Radiology CT Outpatient - [address] [id number] 04/24/2024 11:00 EST Appointment [facility] Breast Imaging - [facility] 1 [place], [place] 232731 04/27/2024 12:00 EST Appointment [facility] Hematology & Oncology - [address] 672191 05/02/2024 15:00 EST Telemedicine [facility] Hematology & Oncology - [address] [phone] Alisson Carreon MD [address] [place] [address], Level [address] [place] [phone] 05/04/2024 10:15 EST Ancillary Procedure [facility] Cardiology - [place] [address] 05/04/2024 11:30 EST Appointment [facility] Hematology & Oncology - [address] [phone] 05/04/2024 12:00 EST Appointment [facility] Hematology & Oncology [address] [phone] 06/12/2024 13:00 EST Appointment [facility] Radiology CT - [address] [phone] documented as of this encounter Visit Diagnoses Diagnosis Osteopenia of necks of both femurs- Primary documented in this encounter Care Teams Propeller Driven Airplane Mechanic Relationship Specialty Start Date End Date Linda Blancas MD [facility] [address] [place] [address] PCP - General 01/06/11 Adolfo Carreno MD [address] [place] [phone] General Surgery 04/26/19 Augustina Colin MD PhD [address] [place] [phone] Medical Oncology 04/26/19 documented as of this encounter
--- OUTSIDE RECORDS SUMMARY | 2024-03-20 15:02 | XMS_ITS | Encounter Summary ---
Author Organization [facility] Address [address] [place] [address] Care Team Providers Care Bacteriologist Soil Name Role Phone Linda Blancas MD Primary Care Provider Adolfo Carreno MD Unavailable [phone] Augustina Colin MD PhD Unavailable Unavailable Reason for Referral * Prior Authorization (Routine/Next Available) - Authorization Not Required Specialty Diagnoses / Procedures Referred By [facility] t Referred To Contact Diagnoses Osteopenia of necks of both femurs Augustina Colin MD PhD Referral ID Status Reason Start Date Expiration Date Visits Requested Visits Authorized [id number] Authorization Not Required Other 9 1 1 Question Answer Medication to be Prior Authorized: zometa [facility] Precertification Request for Medications 05/23/2019 URGENT: No Medication Administration: IV, Clinic Patient Name: Sunshine Pleitez Patient : [id number] Ordering MD: kiki Nurse: maryjane Phone: [phone] Is this a dosage change, renewal or a new medication? New Med Medication Start Date & Number of Cycles: Start upon approval PT BSA: Body surface area is 1.63 meters squared. What is the reason for taking this medication? osteopenia Is this an on label usage of this medication? Yes What is the patient's current drug regimen? Vit D and calcium Similar drugs patient has been on and failed? n/a Please Prior Auth Medications Listed below: Zoledronic acid (zometa): 4mg IV every 6 months Reason for Visit * Reason Comments Injections Encounter Details Date Type Department Care Team (Late st Contact Info) Description 05/23/2019 9:00 EST Office Visit [facility] Cancer Center Hematology [place] [address] Augustina Colin MD PhD Malignant neoplasm of [...] Sign Reading Time Taken Comments Blood Pressure 130/81 05/23/2019 0902 EST Pulse 79 05/23/2019 0902 EST Temperature 36.9 ??C (98.4 ??F) 05/23/2019 0902 EST Respiratory Rate 16 05/23/2019 0902 EST Oxygen Saturation 99% 05/23/2019 0902 EST Inhaled Oxygen Concentration - - Weight 61.6 kg (135 lb 12.8 oz) 05/23/2019 0902 EST Height - - Body Mass Index 25.24 05/07/2019 0913 EST documented in this encounter [...] Progress Notes * Augustina Colin MD - 05/23/2019 0900 EST REASON FOR OFFICE VISIT: Evaluation of side effects while receiving letrozole ?? PROBLEM LIST: 1. 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 a. ??Ultrasound performed in [place]??identifying an irregular heterogeneous soft tissue mass measuring 1.2 x 1.2 x 1.5 cm. ?? 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 ??HER-2 1+ by IHC. ??ANNE [...] right breast tumor/revision and placement of tissue track repair worker. ??1.9 cm tumor at time of [...] density of spine and near osteopenia hips 7. ??Other chronic health issues: ??gastroesophageal reflux disease. ?? SUBJECTIVE: Ms Pleitez presented to the clinic today to discuss staging scans and tolerance to letrozole. She is tolerating letrozole without difficulty. She has some very mild hot flashes. She has plastic surgery revision planned with Dr. Whalen in the next couple of weeks. She has not had problems with new joint aches or discomfort and has no problems with vaginal dryness. We discussed initiating a bone strengthening agent and she is agreeable. ROS: A 10 point review of systems [...] mg tablet Take 400 mg by mouth every 6 hours. ??? letrozole (FEMARA) 2.5 mg tablet TAKE 1 TABLET DAILY ??? MULTIVITS W-CA,FE,OTHER MIN (WOMEN'S DAILY FORMULA ORAL) Take by mouth daily. ??? mv-mn/C/glutamin/lysin/znmi901 (AIRBORNE, ASCORBATE SODIUM, ORAL) Take by mouth [...] of wine per week Presents the clinic alone today. She is very involved with her family. Objective: BP 130/81 Pulse 79 Temp 36.9 ??C (98.4 ??F) (Tympanic) Resp 16 Wt 61.6 kg (135 lb 12.8 oz) SpO2 99% BMI 25.24 kg/m?? Estimated body mass index is 25.24 kg/m?? as calculated from the following: Height as of 05/07/19: 156.2 cm (61.5). Weight as of this encounter: 61.6 kg (135 lb 12.8 oz). ECOG Performance Status: 0 General: Comfortable, cooperative and in no apparent distress HEENT: Pupils are equal, round, reactive to light; Extraocular muscles are intact; Oromucosa is moist; no mucosal lesions are identified LYMPH: No cervical, supraclavicular lymphadenopathy LUNGS: Clear to auscultation bilaterally, resonant to percussion CARDIOVASCULAR: Regular, rate and rhythm; No murmurs, rubs or gallops ABDOMEN: Soft, non-tender, non distended, no hepatosplenomegaly appreciated EXTREMITIES: No clubbing, cyansis or edema; No calf tenderness NEURO: Alert and oriented x 3; Grossly neurologically intact DIAGNOSTIC DATA No visits with results within 1 Day(s) from this visit. Latest known visit with results is: Appointment on 05/17/2019 Component Date Value Ref Range Status ??? Sodium 05/17/2019 138 136 - 145 mEq/L Final ??? Potassium 05/17/2019 4.6 3.5 - 5.0 mEq/L Final ??? Chloride 05/17/2019 101 96 - 110 mEq/L Final ??? CO2 Total 05/17/2019 31 22 - 32 mEq/L Final ??? Glucose 05/17/2019 85 70 - 100 mg/dL Final ??? BUN 05/17/2019 16 10 - 26 mg/dL Final ??? Creatinine 05/17/2019 0.71 0.52 - 1.04 mg/dL Final ? ? eGFR 05/17/2019 95 >60 mL/min/1.73m2 Final eGFR calculated using CKD-EPI equation for non- Americans. Multiply eGFR by 1.16 for AfricanAmerican patients. ??? Total Protein 05/17/2019 7.0 6.3 - 8.2 g/dL Final ??? Albumin 05/17/2019 4.2 3.4 - 4.9 g/dL Final ??? Alkaline Phosphatase 05/17/2019 85 38 - 126 U/L Final ??? AST 05/17/2019 34 15 - 46 U/L Final ? ? ALT 05/17/2019 28 <35 U/L Final ? ? Bilirubin, Total 05/17/2019 0.6 <1.4 mg/dL Final ??? Calcium 05/17/2019 9.9 8.5 - 10.5 mg/dL Final ??? Calculated Calcium 05/17/2019 9.7 8.5 - 10.5 mg/dL Final ? ? CA 27.29 05/17/2019 28.3 <38.0 U/mL Final NOTE: Serum CA 27.29 concentration should not be interpreted as absolute evidence for the presence or absence of malignant disease. Assayed on Siemens ADVIA Centaur XPT using chemiluminescent technology. ??Values obtained by using different assay methods cannot be used interchangeably. ASSESSMENT: ??Ms Bernstein is a 58-year-old female with metastatic breast cancer.?? The largestarea of disease on the ??lateral aspect of the breast was removed at the time of implant removal.??She took the palbociclib for short time but has continued on letrozole. Her tumor marker remains within normal ranges. She had a bone density scan recently that indicated some loss of bone density. Given that she has estrogen receptor positive disease we will plan to initiate zometa. Zometa has data suggesting decreased risk of development of bone metastasis as well. She will receive Zometa twicea year. She is already discussed initiating a bone strengthening agent with her dentist. ? PLAN: 1. Continue letrozole 2.5 mg daily. ?? 2.??Next restaging scans October 2018, to include chest CT??and nuclear scan Apr??2018; Earlier if symptoms? 3. Initiate zometa end of May 16. ??Follow-up return 3 months ? Patient is encouraged call with any intercurrent concerns or problems. Augustina Colin MD 05/23/2019 9:01 documented in this encounter Plan of Treatment Upcoming Encounters Date Type Department Care Team (Late st Contact Info) Description 04/02/2024 10:30 EDT Appointment [facility] Interventional Radiology Unit [address] [place] [address] [phone] 04/02/2024 15:15 EDT Office Visit [facility] Surgical Oncology - [address] [phone] Adolfo Carreno MD [address] [facility], [facility] 2 [place] [phone] 04/05/2024 9:30 EDT Telemedicine [facility] - [facility] Palliative Care Services [address] [place], [place] [phone] Chichi Woods MD [address] [place] [address], [address] [phone] 04/11/2024 15:00 EDT Telemedicine [facility] Hematology & Oncology - [facility] [address] [place], [place] [phone] Alisson Carreon MD [address] [facility], [facility] 2 [place] [phone] 04/13/2024 13:30 EDT Appointment [facility] Hematology & Oncology - [address] [phone] 04/13/2024 14:00 EDT Appointment [facility] Hematology & Oncology - [address] [id number] 04/16/2024 10:00 EST Telemedicine [facility] - [facility] Palliative Care Services [address] [place] [address] [phone] Chichi Woods MD [address] [place] [address], [address] [phone] 04/24/2024 9:00 EST Appointment [facility] Radiology CT Outpatient - [address] [id number] 04/24/2024 11:00 EST Appointment [facility] Breast Imaging - [facility] S [address] [id number] 04/27/2024 12:00 EST Appointment [facility] Hematology & Oncology - [address] [phone] 05/02/2024 15:00 EST Telemedicine [facility] Hematology & Oncology - [address] [phone] Alisson Carreon MD [address] [place] [address], Level 2 [place] [phone] 05/04/2024 10:15 EST Ancillary Procedure [facility] Cardiology - [address] [place], [place] [phone] 05/04/2024 11:30 EST Appointment [facility] Hematology & Oncology - [address] [address] 05/04/2024 12:00 EST Appointment [facility] Hematology & Oncology [address] [address] 06/12/2024 13:00 EST Appointment [facility] Radiology CT - [address] [address] Scheduled Referrals Name Type Priority Associated Diagnoses Order Schedule AMB MEDICATION PRIOR AUTHORIZATION Outpatient Referral Routine Osteopenia of necks of both femurs Ordered: 05/23/2019 documented as of this encounter Visit Diagnoses Diagnosis Malignant neoplasm of right female breast, unspecified estrogen receptor status, unspecified site of breast ([facility])- Primary Osteopenia of necks of both femurs documented in this encounter Care Teams Bacteriologist Soil Relationship Specialty Start Date End Date Linda Blancas MD [address] [place] [address] 30 [place] [address] PCP - General 01/06/11 Adolfo Carreno MD [address] [place] [address] [phone] General Surgery 04/26/19 Augustina Colin MD PhD [address] [place] [address] 2 [place] [phone] Medical Oncology 04/26/19 documented as of this encounter
--- OUTSIDE RECORDS SUMMARY | 2024-03-20 15:02 | XMS_ITS | Encounter Summary ---
Author Organization [facility] Address [address] [place] [address] Care Team Providers Care Poultry Packer Name Role Phone Linda Blancas MD Primary Care Provider [phone] Adolfo Carreno MD Unavailable [phone] Augustina Colin MD PhD Unavailable Unavailable Reason for Visit * Reason Comments Pre-op Exam right Breast implant exchange with fat grafting Encounter Details Date Type Department Care Team (Late st Contact Info) Description 04/26/2019 13:00 EST Office Visit [facility] Plastic, Reconstructive & Cosmetic Surgery - [address], [address] [place] [address] Tylor Boss MD [address] [phone] S/P breast reconstruction, right (Primary Dx) Social History Tobacco Use Types [...] Progress Notes * Tylor Boss MD - 04/26/2019 1300 EST Sunshine follows up for preoperative appointment planned exchange of right tissue dial buffer to silicone implant. In discussion with Sunshine and her she is not happy with her left breast whichwas augmented to match her right previously. She would like to be bigger on the left. I do not think this is unreasonable but that she needs to understand there are some limits to what I can get her tissue to do and some limits of related to the implants in terms of base diameter and projection. Wedid discuss that Tram has a newer implant with additional silicone gel and the same size envelope(MemoryGel Xtra) that I suspect will be very helpful in achieving her goals. Did discuss that this will add extra time to the operative day and that they have to reschedule her surgery until later date where we can accommodate that additional time. She is excepting of this. Signed informed consent was obtained today. Next up will be the operating room. She and her know to call with questions or concerns between now and the day of OR. I spent 55 minutes with this patient; 50 minutes was spent in counseling and coordination of care as described in the progress note. documented in this encounter Plan of Treatment Upcoming Encounters Date Type Department Care Team (Late st Contact Info) Description 04/02/2024 10:30 EDT Appointment [facility] Interventional Radiology Unit [address] [place] [address] 04/02/2024 15:15 EDT Office Visit [facility] Surgical Oncology - Main [place] [address] [place], [place] 447861 Adolfo Carreno MD [address] [place] [address] 2 [place] [phone] 04/05/2024 9:30 EDT Telemedicine [facility] Palliative Care Services [address] [place] [address] [phone] Chichi Woods MD [address] [place] [address] [phone] 04/11/2024 15:00 EDT Telemedicine [facility] Hematology & Oncology - [address] [phone] Alisson Carreon MD [address] [place] [address] 2 [place] [phone] 04/13/2024 13:30 EDT Appointment [facility] Hematology & Oncology - [address] [phone] 04/13/2024 14:00 EDT Appointment [facility] Hematology & Oncology - [address] [id number] 04/16/2024 10:00 EST Telemedicine [facility] Palliative Care Services [address] [place] [address] [phone] Chichi Woods MD [address] [place] [address] [phone] 04/24/2024 9:00 EST Appointment [facility] Radiology CT Outpatient - [address] [id number] 04/24/2024 11:00 EST Appointment [facility] Breast Imaging - [address] [address] 04/27/2024 12:00 EST Appointment [facility] Hematology & Oncology [address] [phone] 05/02/2024 15:00 EST Telemedicine [facility] Hematology & Oncology [address] 648761 Alisson Carreon MD [address] [place] [address] [phone] 05/04/2024 10:15 EST Ancillary Procedure [facility] Cardiology - [address] [place], [place] [phone] 05/04/2024 11:30 EST Appointment [facility] Hematology & Oncology [address] [id number] 05/04/2024 12:00 EST Appointment [facility] Hematology & Oncology [address] 369441 06/12/2024 13:00 EST Appointment [facility] Radiology CT [address] [id number] documented as of this encounter Visit Diagnoses Diagnosis S/P breast reconstruction, right- Primary Breast replaced by other means documented in this encounter Care Teams Poultry Packer Relationship Specialty Start Date End Date Linda Blancas MD [address] [place] [address] 30 [place] [address] PCP - General 01/06/11 Adolfo Carreno MD [address] [place] [phone] General Surgery 04/26/19 Augustina Colin MD PhD [address] [place], [place] [phone] Medical Oncology 04/26/19 documented as of this encounter
--- OUTSIDE RECORDS SUMMARY | 2024-03-20 15:02 | XMS_ITS | Encounter Summary ---
Author Organization [facility] Address [address] [place] [address] Care Team Providers Care Fish Bait Processing Supervisor Name Role Phone Linda Blancas MD Primary Care Provider [phone] Reason for Visit * Reason Onset Date Comments Other 03/23/2019 event is sold ou t but Sunshine saved Dr. Colin a spot if she is interested. please read writers note. Encounter Details Date Type Department Care Team (Late st Contact Info) Description 03/23/[address] [facility] Cancer [facility] Hematology & On[facility] - [facility] [address] [place], [place] [id number] Augustina Colin MD PhD Other (event is sold out but Sunshine saved Dr. Colin a spot if she is interested. please read writers note. ) Social History Tobacco Use Types Packs/Day [...] encounter Miscellaneous Notes * Telephone Encounter - Bryan Arambula - 03/23/2019 0811 EDT Patient is calling stating she was seen yesterday. Patient is going to the [facility] tour. Last tour is tomorrow ever. She wanted to make sure knew about this. Sunshine got a spot. She wants her to call the commercial interior designer this morning for Tuesday at 1:00. Ivania Duran # [phone]. If Dr. Colin would like to go please mention Kuldip name . Ivania will be expecting a call. Sunshine is hoping to see Dr. Colin at the event. documented in this encounter Plan of Treatment Upcoming Encounters Date Type Department Care Team (Late st Contact Info) Description 04/02/2024 10:30 EDT Appointment [facility] Interventional Radiology Unit [address] [place], [place] [phone] 04/02/2024 15:15 EDT Office Visit [facility] Surgical Oncology - [facility] [address], [place] [phone] Adolfo Carreno MD 111 [facility], Level 2 [place] [phone] 04/05/2024 9:30 EDT Telemedicine [facility] Palliative Care Services [address] [place], [place] [address] Chichi Woods MD 111 [facility], [address] [phone] 04/11/2024 15:00 EDT Telemedicine [facility] Hematology & Oncology - [address] 113851 Alisson Carreon MD [address] [place] [address] 2 [place] [phone] 04/13/2024 13:30 EDT Appointment [facility] Hematology & Oncology - [address] [phone] 04/13/2024 14:00 EDT Appointment [facility] Hematology & Oncology - [address] [phone] 04/16/2024 10:00 EST Telemedicine [facility] - [facility] Palliative Care Services [address] [place] [address] [phone] Chichi Woods MD [address] [place] [phone] 04/24/2024 9:00 EST Appointment [facility] Radiology CT Outpatient - [address] 275261 04/24/2024 11:00 EST Appointment [facility] Breast Imaging - [address] [phone] 04/27/2024 12:00 EST Appointment [facility] Hematology & Oncology - [address] [phone] 05/02/2024 15:00 EST Telemedicine [facility] Hematology & Oncology - [address] [phone] Alisson Carreon MD [address] [place] [address], [facility] 2 [place] [phone] 05/04/2024 10:15 EST Ancillary Procedure [facility] Cardiology - [place] [address] 05/04/2024 11:30 EST Appointment [facility] Hematology & Oncology [address] [address] 05/04/2024 12:00 EST Appointment [facility] Hematology & Oncology [address] [address] 06/12/2024 13:00 EST Appointment [facility] Radiology CT - [address] [phone] documented as of this encounter Visit Diagnoses Not on filedocumented in this encounter Care Teams Fish Bait Processing Supervisor Relationship Specialty Start Date End Date Linda Blancas MD [facility] [address] [place] [address] PCP - General 01/06/11 documented as of this encounter
--- OUTSIDE RECORDS SUMMARY | 2024-03-20 15:02 | XMS_ITS | Encounter Summary ---
Author Organization [facility] Address [address] [place] [address] Care Team Providers Care Washhouse Hand Name Role Phone Linda Blancas MD Primary Care Provider [phone] Reason for Referral * Prior Authorization (Routine/Next Available) - Authorization Not Required Specialty Diagnoses / Procedures Referred By Contdayanna t Referred To Contact Diagnoses Metastatic breast cancer Menopausal and postmenopausal disorder Augustina Colin MD PhD Referral ID Status Reason Start Date Expiration Date Visits Requested Visits Authorized [id number] Authorization Not Required Other 9 1 1 Question Answer Medication to be Prior Authorized: xgeva [facility] Precertification Request for Medications 03/22/2019 URGENT: No Medication Administration: IV, Clinic Patient Name: Sunshine Pleitez Patient : [id number] Ordering MD: kiki Nurse: [facility] Phone: [phone] Is this a dosage change, renewal or a new medication? New Med Medication Start Date & Number of Cycles: Start at next visit PT BSA: Body surface area is 1.63 meters squared. What is the reason for taking this medication? Metastatic breast cancer, decreased bone density Is this an on label usage of this medication? Yes What is the patient's current drug regimen? n/a Similar drugs patient has been on and failed? n/a Please Prior Auth Medications Listed below: Denosumab (Xgeva) -Xgeva: 120mg SQ every 4 weeks * Radiology Services (Routine) - Closed Specialty Diagnoses / Procedures Referred By Contac t Referred To Contact Diagnoses Metastatic breast cancer Procedures CT CHEST W CONTRAST Augustina Colin MD PhD Referral ID Status Reason Start Date Expiration Date Visits Re quested Visits Authorized [id number] Closed 05/08/2019 07/06/2019 1 1 Reason for Visit * Reason Comments Follow-up Encounter Details Date Type Department Care Team (Latest Contact Info) Description 03/22/2019 11:30 EDT Office Visit [facility] Cancer Center Hematology & Oncology - [address] [address] Augustina Colin MD PhD Metastatic breast cancer (HCC-CMS) (Primary Dx); Menopausal and postmenopausal disorder Social History Tobacco Use Types Packs/Day Years [...] Sign Reading Time Taken Comments Blood Pressure 148/73 03/22/2019 1145 EDT Pulse 78 03/22/2019 1145 EDT Temperature 36.4 ??C (97.5 ??F) 03/22/2019 1145 EDT Respiratory Rate 16 03/22/2019 1145 EDT Oxygen Saturation 100% 03/22/2019 1145 EDT Inhaled Oxygen Concentration - - Weight 61.4 kg (135 lb 6.4 oz) 03/22/2019 1145 E DT Height 156.6 cm (5' 1.65) 03/22/2019 1145 EDT Body Mass Index 25.04 03/22/2019 1145 EDT documented in this encounter Functional Status [...] this encounter Progress Notes * Augustina Colin MD, MD - 03/22/2019 1130 EDT REASON FOR OFFICE VISIT: Evaluation of side effects while receiving letrozole ?? PROBLEM LIST: 1. 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 a. ??Ultrasound performed in [place]??identifying an irregular heterogeneous soft tissue mass measuring 1.2 x 1.2 x 1.5 cm. ?? 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 ??HER-2 1+ by IHC. ??ANNE [...] right breast tumor/revision and placement of tissue bearing inspector. ??1.9 cm tumor at time of surgery, well differentiated, with LVI present, and negative margins. ?? 2. ??Restaging scans: ??CT scan of the chest completed 11/07/18 stable pulmonary nodules; nuclear bone scan with no osseous metastasis 3. ??DCIS in 2003 at the age [...] ??Other chronic health issues: ??gastroesophageal reflux disease. SUBJECTIVE: Ms Mary Grace stone presents for ongoing evaluation receiving letrozole. She has continuedto feel well with some hot flashes which are improving slightly longer she has been on the letrozole. She is planning to proceed with another reconstruction attempt in May. She has some questions about the slight uptake in her tumor marker. ROS: A 10 point review of systems was obtained. Other than described in the subjective she notes fatigue relieved with rest, occasional cough, occasional headaches. The remaining review systems is discussed and is negative Medications Prior to Today's Visit [...] HYDROmorphone (DILAUDID) 2 mg tablet Take 1 tablet by mouth every 4 hours as needed for Pain. Daily Max: 12 mg ??? letrozole (FEMARA) 2.5 mg tablet TAKE 1 TABLET DAILY ??? MULTIVITS W-CA,FE,OTHER MIN (WOMEN'S DAILY FORMULA ORAL) Take by mouth daily. ??? mv-mn/C/glutamin/lysin/adqu029 (AIRBORNE, ASCORBATE SODIUM, ORAL) Take by mouth. ??? omeprazole (PRILOSEC) 20 mg capsule Take [...] week Presents the clinic alone today. She continues to be very active. Objective: There were no vitals taken for this visit. Estimated body mass index is 25.23 kg/m?? as calculated from the following: Height as of 01/26/19: 155.8 cm (61.34). Weight as of 01/26/19: 61.2 kg (135 lb). ECOG Performance Status: 0 General: Comfortable, cooperative and in no apparent distress HEENT: Pupils are equal, round, reactive to light; Extraocular muscles are intact; [place] is moist; no mucosal lesions are identified LYMPH: No cervical, supraclavicular lymphadenopathy LUNGS: Clear to auscultation bilaterally, resonant to percussion CARDIOVASCULAR: Regular, rate and rhythm; No murmurs, rubs or gallops ABDOMEN: Soft, non-tender, non distended EXTREMITIES: No clubbing, cyansis or edema; No calf tenderness NEURO: Alert and oriented x 3; Grossly neurologically intact DIAGNOSTIC DATA No visits with results within 1 Day(s) from this visit. Latest known visit with results is: Phlebotomy Only on 03/16/2019 Component Date Value Ref Range Status ? ? CA 27.29 03/16/2019 31.1 <38 U/mL Final Comment: Serum CA 27.29 concentration should not be interpreted as absolute evidence for the presence or absence of malignant disease. Assayed utilizing [employer] ([email or web address]) chemiluminescent technology. Values obtained by using different assay methods cannot be used interchangeably. ??? Potassium 03/16/2019 4.4 3.5 - 5.0 mEq/L Final ??? Sodium 03/16/2019 142 136 - 145 mEq/L Final ??? Chloride 03/16/2019 104 96 - 110 mEq/L Final ??? CO2 03/16/2019 28 22 - 32 mEq/L Final ??? Total Alkaline Phosphatase 03/16/2019 72 38 - 126 U/L Final ? ? Bilirubin, Total 03/16/2019 <0.5 <1.4 mg/dl Final ??? AST 03/16/2019 38 15 - 46 U/L Final ? ? ALT 03/16/2019 23 <34 U/L Final ??? Albumin 03/16/2019 4.3 3.4 - 4.9 g/dl Final ??? Total Protein 03/16/2019 7.0 6.3 - 8.2 g/dl Final ??? Creatinine 03/16/2019 0.80 0.52 - 1.04 mg/dl Final ? ? GFR, Calculated 03/16/2019 82 >60 ml/min/1.73m2 Final Comment: eGFR calculated using CKD-EPI equation for non Americans. Multiply eGFR by 1.16 for Americans. ??? BUN 03/16/2019 20 10 - 26 mg/dl Final ??? Calcium 03/16/2019 9.9 8.5 - 10.5 mg/dl Final ??? Calculated Calcium 03/16/2019 9.7 8.5 - 10.5 mg/dl Final ??? Glucose, Serum 03/16/2019 112* 70 - 100 mg/dl Final ??? Magnesium 03/16/2019 2.0 1.7 - 2.8 mg/dl Final ??? WBC 03/16/2019 5.76 4.0 - 12.4 K/cmm Final ??? RBC 03/16/2019 4.21 3.86 - 5.04 M/cmm Final ??? Hemoglobin 03/16/2019 13.8 11.6 - 15.2 gm/dl Final ??? HCT 03/16/2019 41.3 34.9 - 44.4 % Final ??? MCV 03/16/2019 98 81 - 98 fl Final ??? MCH 03/16/2019 32.8 26.7 - 33.3 pg Final ??? MCHC 03/16/2019 33.4 32.1 - 35.9 gm/dl Final ? ? RDW-CV 03/16/2019 12.4 <14.7 % Final ? ? RDW-SD 03/16/2019 44.4 <50.4 fl Final ??? PLT 03/16/2019 246 141 - 377 K/cmm Final ??? MPV 03/16/2019 10.3 9.5 - 12.7 fl Final ??? Neutrophils 03/16/2019 49.5 % Final ??? Lymphocytes 03/16/2019 38.5 % Final ??? Monocytes 03/16/2019 8.7 % Final ??? Eosinophils 03/16/2019 2.1 % Final ??? Basophils 03/16/2019 1.0 % Final ??? Immature Grans 03/16/2019 0.2 % Final ??? ABS Neutrophils 03/16/2019 2.85 2.20 - 8.85 K/cmm Final ??? ABS Lymphs 03/16/2019 2.22 1.09 - 3.30 K/cmm Final ??? ABS Monocytes 03/16/2019 0.50 0.1 - 0.8 K/cmm Final ??? ABS Eosinophils 03/16/2019 0.12 0.03 - 0.61 K/cmm Final ??? ABS Basophils 03/16/2019 0.06 0.01 - 0.11 K/cmm Final ??? ABS Immature Grans 03/16/2019 0.01 0 - 0.06 K/cmm Final ??? Type of Diff: 03/16/2019 Automated Final ASSESSMENT: ??Ms Bernstein is a 58-year-old [...] she has estrogen receptor positive disease we discussed the possibility of initiating denosumab. We explained that denosumab helps to prevent loss of bone density but also decreases risk of cancer establishing itself and bone. We discussed the fact that denosumab is associated with 1% risk osteonecrosis of the jaw. She will call her dentist to see if any invasive procedures are planned. She would like to proceed with therapy. She will be due for restaging scans in April. Given that we have no bone involvement at this time we will only obtain a CT scan of the chest. ? PLAN: 1. Continue letrozole 2.5 mg daily. ?? 2.??Chest CT scan Apr 2019? 3. Initiate denosumab in April 16. ??Follow-up return after scans are completed. ? Patient is encouraged call with any intercurrent concerns or problems. ?? Augustina Colin MD 03/22/2019 11:26 documented in this encounter Plan of Treatment Upcoming Encounters Date Type Department Care Team (Late st Contact Info) Description 04/02/2024 10:30 EDT Appointment [facility] Interventional Radiology Unit [address] [place] [address] [phone] 04/02/2024 15:15 EDT Office Visit [facility] Surgical Oncology - [address] [phone] Adolfo Carreno MD [facility] Level 2 [place] [phone] 04/05/2024 9:30 EDT Telemedicine [facility] - [facility] Palliative [facility] Services [address] [place] [address] [phone] Chichi Woods MD 111 [facility], [address] [phone] 04/11/2024 15:00 EDT Telemedicine [facility] Hematology & Oncology - [address] [phone] Alisson Carreon MD [address] [place] [address] 2 [place] [phone] 04/13/2024 13:30 EDT Appointment [facility] Hematology & Oncology - [address] [phone] 04/13/2024 14:00 EDT Appointment [facility] Hematology & Oncology [address] [phone] 04/16/2024 10:00 EST Telemedicine [facility] - [facility] Palliative Care Services [address] [place] [address] [phone] Chichi Woods MD [address] [place] [phone] 04/24/2024 9:00 EST Appointment [facility] Radiology CT Outpatient - [address] [id number] 04/24/2024 11:00 EST Appointment [facility] Breast Imaging - [address] [phone] 04/27/2024 12:00 EST Appointment [facility] Hematology & Oncology - [address] [phone] 05/02/2024 15:00 EST Telemedicine [facility] Hematology & Oncology - [address] [phone] Alisson Carreon MD [address] [place] [address], [facility] 2 [place] [phone] 05/04/2024 10:15 EST Ancillary Procedure [facility] Cardiology - [address] [place] [address] 05/04/2024 11:30 EST Appointment [facility] Hematology & Oncology [address] [address] 05/04/2024 12:00 EST Appointment [facility] Hematology & Oncology [address] [address] 06/12/2024 13:00 EST Appointment [facility] Radiology CT - [address] [address] Scheduled Referrals Name Type Priority Associated Diagnoses Orde r Schedule AMB MEDICATION PRIOR AUTHORIZATION Outpatient Referral Routine Metastatic breast cancer (HCC-CMS) Menopausal and postmenopausal disorder Ordered: 03/22/2019 documented as of this encounter Results * CT CHEST W CONTRAST (05/17/2019 11:09 EST) Anatomical Region Laterality Modality Chest Computed Tomogra phy 05/17/2019 13:1 8 EST Impressions 05/17/2019 13:18 EST 1. ??No definite metastatic lesions in the chest. 2. ??Left breast prosthesis and right breast tissue bearing inspector. 3. ??Stable small nodules within the left upper lobe, likely benign/inflammatory. 4. ??Stable borderline to mildly enlarged subcarinal lymph node. 5. ??Right diaphragm eventration. Narrative 05/17/2019 13:[address] CHEST W CONTRAST ??05/17/2019 10:53 AM Clinical History/Comments: pt w/ metastatic breast cancer; C50.919-Malignant neoplasm of unspecified site of unspecified female breast (HCC-CMS)-ICD-10; pt w/ metastatic breast cancer Technique: A single breath-hold helical CT [...] CT of the chest with contrast Comparison: 11/07/2018 Findings: Lower neck: No abnormalities. Chest wall soft tissues: Left breast prosthesis. Right breast tissue bearing inspector. Mediastinum and mariann: Stable borderline to mildly enlarged subcarinal lymph node. No new or enlarging mediastinal lymph nodes. Heart and mediastinal vasculature: ??No abnormalities. Large airways: ??No abnormalities. Lungs: ??Stable small cluster of likely postinflammatory nodules within the left upper lobe. Pleura: No abnormalities. Right diaphragm lobulations likely due to eventration. Upper abdomen (limited to upper abdomen, not optimized for abdominal imaging): No abnormalities. Bones: ??No significant abnormalities. Procedure Note Shady Fallon MD - 05/17/2019 CT CHEST W CONTRAST 05/17/2019 10:53 AM Clinical History/Comments: pt w/ metastatic breast cancer; C50.919-Malignant neoplasm of unspecifiedsite of unspecified female breast (HCC-CMS)-ICD-10; pt w/ metastaticbreast cancer Technique: A single breath-hold helical CT acquisition was performed through thechest on a multidetector-row scanner with a reconstructed slice thicknessof 3 mm and retrospectively reconstructed 0.9 mm thick sections with 0.45mm overlapping intervals. The scans were obtained from the lung apicesthrough the bases during the intravenous administration of 70-100 cc [id number] mg% nonionic contrast injected at a rate of 2 cc/second. Scanswere reviewed on a dedicated PACS workstation for analysis. Exam description: CT of the chest with contrast Comparison: 11/07/2018 Findings: Lower neck: No abnormalities. Chest wall soft tissues: Left breast prosthesis. Right breast tissueexpander. Mediastinum and mariann: Stable borderline to mildly enlarged subcarinallymph node. No new or enlarging mediastinal lymph nodes. Heart and mediastinal vasculature: No abnormalities. Large airways: No abnormalities. Lungs: Stable small cluster of likely postinflammatory nodules within theleft upper lobe. Pleura: No abnormalities. Right diaphragm lobulations likely due toeventration. Upper abdomen (limited to upper abdomen, not optimized for abdominalimaging): No abnormalities. Bones: No significant abnormalities. IMPRESSION 1. No definite metastatic lesions in the chest. 2. Left breast prosthesis and right breast tissue bearing inspector. 3. Stable small nodules within the left upper lobe, likelybenign/inflammatory. 4. Stable borderline to mildly enlarged subcarinal lymph node. 5. Right diaphragm eventration. Augustina Colin MD PhD IMG CT ORDERABLES documented in this encounter Visit Diagnoses Diagnosis Metastatic breast cancer- Primary Menopausal and postmenopausal disorder Unspecified menopausal and postmenopausal disorder Metastatic breast cancer documented in this encounter Care Teams Washhouse Hand Relationship Specialty Start Date End Date Linda Blancas MD [facility] [address] [place] [address] PCP - General 01/06/11 documented as of this encounter
--- OUTSIDE RECORDS SUMMARY | 2024-03-20 15:02 | XMS_ITS | Encounter Summary ---
Author Organization [facility] Address [address] [place] [address] Care Team Providers Care Remote Sensing Surveyor Name Role Phone Linda Blancas MD Primary Care Provider [phone] Adolfo Carreno MD Unavailable [phone] Augustina Colin MD PhD Unavailable Unavailable Reason for Visit * Reason Onset Date Comments Appointment Related 04/26/2019 Encounter Details Date Type Department Care Team (Late st Contact Info) Description 04/26/2019 Telephone [facility] Plastic, Reconstructive & Cosmetic Surgery - [address], [address] [place] [address] Tylor Boss MD [address] [place] [phone] Appointment Related Social History Tobacco Use [...] * Telephone Encounter - Dasha Lockhart - 04/26/2019 1050 EST Patient has been informed of her date/time for surgery scheduled with Dr. Tylor Boss on Tuesday May 28, 2019. Surgery is scheduled to start around 1:20 PM. Patient has been informed to arrive at [address] [place] [address] at the registration office at 11:20 AM. documented in this encounter Plan of Treatment Upcoming Encounters Date Type Department Care Team (Late st Contact Info) Description 04/02/2024 10:30 EDT Appointment [facility] Interventional Radiology Unit [address] [place] [address] [phone] 04/02/2024 15:15 EDT Office Visit [facility] Surgical Oncology - [address] [phone] Adolfo Carreno MD [address] [place] [address], [address] [place] [phone] 04/05/2024 9:30 EDT Telemedicine [facility] - [facility] Palliative Care Services [address] [place] [address] [phone] Chichi Woods MD [address] [place] [address], [address] [phone] 04/11/2024 15:00 EDT Telemedicine [facility] Hematology & Oncology - [address] [phone] Alisson Carreon MD [address] [place] [address] 2 [place] [phone] 04/13/2024 13:30 EDT Appointment [facility] Hematology & Oncology - [address] [phone] 04/13/2024 14:00 EDT Appointment [facility] Hematology & Oncology - [address] [phone] 04/16/2024 10:00 EST Telemedicine [facility] - [facility] Palliative Care Services [address] [place] [address] [phone] Chichi Woods MD [address] [place] [phone] 04/24/2024 9:00 EST Appointment [facility] Radiology CT Outpatient - [address] [phone] 04/24/2024 11:00 EST Appointment [facility] Breast Imaging - [facility] [address] [phone] 04/27/2024 12:00 EST Appointment [facility] Hematology & Oncology - [address] [phone] 05/02/2024 15:00 EST Telemedicine [facility] Hematology & Oncology - [address] [phone] Alisson Carreon MD [address] [place] [address], [facility] 2 [place] [phone] 05/04/2024 10:15 EST Ancillary Procedure [facility] Cardiology - [address] [place], [place] [phone] 05/04/2024 11:30 EST Appointment [facility] Hematology & Oncology - [address] [address] 05/04/2024 12:00 EST Appointment [facility] Hematology & Oncology [address] [address] 06/12/2024 13:00 EST Appointment [facility] Radiology CT - [address] [address] documented as of this encounter Visit Diagnoses Not on filedocumented in this encounter Care Teams Remote Sensing Surveyor Relationship Specialty Start Date End Date Linda Blancas MD [facility] [address] [place] [address] PCP - General 01/06/11 Adolfo Carreno MD [address] [place] [phone] General Surgery 04/26/19 Augustina Colin MD PhD [address] [place] [phone] Medical Oncology 04/26/19 documented as of this encounter
--- OUTSIDE RECORDS SUMMARY | 2024-03-20 15:02 | XMS_ITS | Encounter Summary ---
Author Organization [facility] Address [address] [place] [address] Care Team Providers Care Churn Tender Name Role Phone Linda Blancas MD Primary Care Provider [phone] Adolfo Carreno MD Unavailable [phone] Augustina Colin MD PhD Unavailable Unavailable Reason for Visit * Auth/Cert Specialty Diagnoses / Procedures Referred By Doug hearn Referred To Contact Diagnoses Personal history of malignant neoplasm of breast Procedures CO DELAY BREAST PROS AFTER BREAST SURG Exchange right tissue technical support engineer to silicone implant, exchange of left implant for matching Referral ID Status Reason Start Date Expiration Date Visits Re quested Visits Authorized [id number] 1 1 Encounter Details Date Type Department Care Team (Late st Contact Info) Description 05/30/2019 14:54 EST Anesthesia Event [facility] OR [address] [place], [place] [phone] Matt Griffiths MD [address] [place] [phone] Yovana Bradshaw CRNA [address] [place] [phone] Anesthesia Record Procedure Summary Procedure Name Responsible Anesthesiologist Anesthesia Start Time Anesthesia Stop Time Exchange right tissue technical support engineer to silicone implant, exchange of left implant for matching (Bilateral) Matt Griffiths MD 05/30/19 1454 05/30/19 1731 Events Date Time Event Comment 05/30/2019 1454 An Start The patient was re-evaluated immediately before moderate or deep sedation use, before anesthesia induction, or before the anesthesia procedure. 1454 An Start Data 1500 An Induction The patient was reevaluated immediately before moderate or deep sedation use and before anesthesia induction. 1504 an irish now 1506 An Intubation 1506 Anesthesia Ready 1716 An Extubation OP suctioned, extubated awake. Patent airway. NC supp O2 to PACU. 1727 an stop data 1731 Handoff to RN I completed my handoff to the receiving nurse during which we: 1. Identified the patient 2. Identified the responsible provider 3. Reviewed the pertinent medical history 4. Discussed the surgical course 5. Reviewed intra-op anesthesia management and issues during anesthesia 6. Set expectations for post-procedure period 7. Allowed opportunity for questions and acknowledgement of understanding. 1731 An Stop Meds Name Total dexaMETHasone (DECADRON) injection 4 mg/ mL (for IV doses up to 10mg) 8 mg ePHEDrine injection 5 mg fentanyl citrate (PF) injection 100 mcg HYDROmorphone (DILAUDID) injection 2 mg/ 1 mL 0.4 mg lidocaine injection 2 % 60 mg midazolam (VERSED) injection 1 mg/mL 2 m g ondansetron (PF) (ZOFRAN) injection 4 mg phenylephrine inj 100 mcg/ml syringe 400 mcg propOFol (DIPRIVAN) injection 160 mg propofol (DIPRIVAN) 500 mg in 50 mL infu addie 1,038,120 mcg rocuronium (ZEMURON) injection 10 mg/mL 75 mg sugammadex (BRIDION) injection 100 mg/mL 120 mg dexmedetomidine (PRECEDEX) infusion 38.2 3 mcg ceFAZolin (ANCEF) syringe 2 g 2 g lactated ringers (LR) infusion 1,100 mL * Agents Name Insp Sevoflurane Exp Sevoflurane O2 N2O Air * Blood No blood administrations on file. Lines, Drains, and Airways Type Details Placement Removal Full Thickness 05/30/18; 0845; Surg ical; Right; Breast; right breast tissue technical support engineer exchange - abd's, surgical bra applied; 09/08/20 (not present on arrival); 1825 05/30/18 0845 by Hina Turcios RN 09/08/20 1825 by Deana Parker RN Full Thickness 05/30/18; 1023; Left ; Breast; Left breast mastopexy with implant exchange... abd's surgical bra applied; 09/08/20 (not present on arrival); 18205/30/18 1023 by Hina Turcios RN 09/08/20 1825 by Deana Parker RN Full Thickness 05/30/18; 1149; Surg ical; Umbilicus; Abdominal scar revision; 09/08/20 (not present on arrival); 18205/30/18 1149 by Hina Turcios RN 09/08/20 1824 by Deana Parker RN Full Thickness 08/30/18; 1506; Surg ical; Right; Breast; s/p right breast implant to technical support engineer exchange; 09/08/20 (not present on arrival); 18308/30/18 1506 by Zayra Manzano RN 09/08/20 1833 by Deana Parker RN Peripheral IV 05/30/19; 1317; B Br aun Introcan; Right; Forearm; Inserted by RN; 1; None; 3.15% Chlorhexidine with IPA; 05/30/19; 1813; Discharged, Per protocol, Per order; No complications 05/30/19 1317 by Rosa Khan RN 05/30/19 1813 by Anna Bray RN Wound 05/30/19; 1643; Inci addie; Left, Right, Midline, Lateral; Breast; N; Full thickness; 09/08/20 (not present on arrival); 18305/30/19 1643 by Anusha Holcomb RN 09/08/20 1833 by Deana Parker RN documented in this encounter Social History [...] OR Notes * Anesthesia Postprocedure Evaluation - Matt Griffiths MD - 05/30/2019 1732 EST Patient: Sendy Pleitez Last Vitals Vital signs were reviewed with the recovery nurse and are available in the Epic flowsheets. Relevant recent vitals: SpO2 97%, HR 79, RR 14 Last Pain Score - Numeric Pain Level (Scale 1-10): 0 Type of Anesthesia - general Anesthesia Post Evaluation Post-procedure vitals reviewed and are stable. Level of consciousness: awake Temperature status: normothermia and patient returned to pre-procedure baseline Respiratory status: airway patent and stable Cardiovascular status: stable Hydration status: adequate Nausea/Vomiting: none Pain management: adequate Post-Op Assessment: patient tolerated procedure well with no complications Patient participation: able to participate Disposition: outpatient/home Anesthesia Complications: No apparent anesthesia complications * Anesthesia Preprocedure Evaluation - Yovana Bradshaw, LION - 05/30/2019 1522 EST Anesthesia Preprocedure Evaluation Patient Medical History, including Anesthesia History reviewed. Chart and Nursing Notes reviewed, including NPO status and Medication History. Additional ROS/History Findings: Allergies Allergen Reactions ??? Amoxicillin Other (See Comments) and Rash Red rash ??? Sulfa (Sulfonamide Antibiotics) Hives Light lavender rash Review of Systems Neurological: Positive for dizziness. Upon IV insertion in Pre Op, some nausea. Resolved after fluids turned off. [place] fine at this time of assessment Past Medical History: Diagnosis Date ??? Acquired spondylolisthesis ??? Allergy ??? Arthritis ??? Back pain 05/07/2019 pt denies ??? Breast cancer ([facility]) November 2003 DCIS - right breast ??? Depression ??? Environmental allergies ??? GERD (gastroesophageal reflux disease) 05/07/2019 per pt takes omeprozole profolactially ??? Hearing loss ??? 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 ??? Lumbar radicular syndrome ??? Numbness ??? Wears glasses Relevant Problems Neuro/Psych (+) Personal history of malignant neoplasm of breast Physical Exam Airway Mallampati: I Comments: Small aperature Cardiovascular Rhythm: regular Rate: normal Dental - normal exam Pulmonary - normal exam Breath sounds clear to auscultation Abdominal Anesthesia Plan ASA 2 Anesthesia Type - general, to include intravenous induction. Block for post-op pain? No Anesthesia plan and risks discussed. Informed consent obtained from patient and spouse. Specific risks discussed were dental injury. Code status discussed? No The preoperative history and physical which was performed within 30 days of this procedure, has been reviewed and the clinically appropriate elements of the physical examination have been repeated. There are no changes to the documented history and physical or, if so, such changes are documented inthis note PAT Note (Notes from 04/30/19 through 05/30/19) No notes of this type exist for this encounter. * Anesthesia Procedure Notes - Matt Griffiths MD - 05/30/2019 1514 EST Associated Order(s): Airway Airway Date/Time: 05/30/2019 15:06 Urgency: elective General Information and Staff Patient location during procedure: OR Anesthesiologist: Matt Griffiths MD Resident/INTERACTIVE MEDIA SPECIALIST: Yovana Bradshaw APRN Performed: resident/INTERACTIVE MEDIA SPECIALIST/AA Indications and Patient Condition Indications for airway management: anesthesia Sedation level: GA Preoxygenated: yes Patient position: sniffing MILS Maintained: No Ventilation assessment: 1 - Easy Final Airway Details Final airway type: endotracheal airway Successful airway: ETT Cuffed: yes Successful intubation technique: video laryngoscopy Albrecht Blade size: #3 documented in this encounter Plan of Treatment Upcoming Encounters Date Type Department Care Team (Late st Contact Info) Description 04/02/2024 10:30 EDT Appointment [facility] Interventional Radiology Unit [address] [place] [address] [phone] 04/02/2024 15:15 EDT Office Visit [facility] Surgical Oncology - [address] [phone] Adolfo Carreno MD [address] [place] [address] [address] [place] [phone] 04/05/2024 9:30 EDT Telemedicine [facility] Palliative Care Services [address] [place] [address] [phone] Chichi Woods MD [address] [place] [address] [phone] 04/11/2024 15:00 EDT Telemedicine [facility] Hematology & Oncology [address] [phone] Alisson Carreon MD [address] [place] [address] [address] [place] [phone] 04/13/2024 13:30 EDT Appointment [facility] Hematology & Oncology [address] [phone] 04/13/2024 14:00 EDT Appointment [facility] Hematology & Oncology [address] [id number] 04/16/2024 10:00 EST Telemedicine [facility] Palliative Care Services [address] [place] [address] [phone] Chichi Woods MD [address] [place] [address], [address] [place] [phone] 04/24/2024 9:00 EST Appointment [facility] Radiology CT Outpatient - [address] [id number] 04/24/2024 11:00 EST Appointment [facility] Breast Imaging - [facility] [address] [place], [place] [address] 04/27/2024 12:00 EST Appointment [facility] Hematology & Oncology [address] [phone] 05/02/2024 15:00 EST Telemedicine [facility] Hematology & Oncology [address] [phone] Alisson Carreon MD [address] [place] [address], Main Pavilion, Level [address] [place] [phone] 05/04/2024 10:15 EST Ancillary Procedure [facility] Cardiology - [address] [place] [address] 05/04/2024 11:30 EST Appointment [facility] Hematology & Oncology [address] [id number] 05/04/2024 12:00 EST Appointment [facility] Hematology & Oncology - [address] [phone] 06/12/2024 13:00 EST Appointment [facility] Radiology CT - [address] [phone] documented as of this encounter Procedures Procedure Name Priority Date/Time Associated Diagnosis Comments ANESTHESIA INTUBATION Routine 05/30/2019 15:14 EST documented in this encounter Results * Airway (05/30/2019 15:14 EST) Narrative POINT [facility] CARE [facility] - 05/30/2019 15:14 EST Matt Griffiths MD ? 05/30/2019 17:32 Airway Date/Time: 05/30/2019 15:06 Urgency: elective General Information and Staff Patient location during procedure: OR Anesthesiologist: Matt Griffiths MD Resident/INTERACTIVE MEDIA SPECIALIST: Yovana Bradshaw APRN Performed: resident/INTERACTIVE MEDIA SPECIALIST/AA Indications and Patient Condition Indications for airway management: anesthesia Sedation level: GA Preoxygenated: yes Patient position: sniffing MILS Maintained: No Ventilation assessment: 1 - Easy Final Airway Details Final airway type: endotracheal airway Successful airway: ETT Cuffed: yes Successful intubation technique: video laryngoscopy Albrecht Blade size: #3 Matt Griffiths MD ANESTHESIA ORDERA BLES POINT OF CARE [facility] documented in this encounter Visit Diagnoses Not on filedocumented in this encounter Administered Medications Inactive Administered Medications - up to 3 most recent administrations Medication Order MAR Action Action Date Dose Rate Site ceFAZolin (ANCEF) syringe 2 g 2 g, intravenous, Administer over 10 Minutes, PRE-OP ONCE, 1 dose, On Tue05/30/19 at 1415, Routine Given 05/30/2019 15:14 EST 2 g dexaMETHasone (DECADRON) injection PRN, Starting on Tue05/30/19 at 1519, Until Tue05/30/19 at 1731, Routine, Anesthesia Intraprocedure Given 05/30/2019 15:19 EST 8 mg dexMEDEtomidine in 0.9 % NaCl (PRECEDEX) 400 mcg/100 mL infusion FA IP EQF CONTINUOUS PRN FOR ONE STEP MEDS, Starting on Tue05/30/19 at 1504, Until Tue05/30/19 at 1731, Routine, Anesthesia Intraprocedure Rate Change 05/30/2019 15:26 EST 0.3 mcg/kg/hr 4.6 mL/hr Rate Change 05/30/2019 15:11 EST 0.5 mcg/kg/hr 7.7 mL/hr New Bag 05/30/2019 15:04 EST 0.7 mcg/kg/hr 10.8 mL/hr ePHEDrine injection intravenous, PRN, Starting on Tue05/30/19 at 1656, Until Tue05/30/19 at 1731, Routine, Anesthesia Intraprocedure Given 05/30/2019 16:56 EST 5 mg fentaNYL citrate (PF) injection intravenous, PRN, Starting on Tue05/30/19 at 1459, Until Tue05/30/19 at 1731, Routine, Anesthesia Intraprocedure Given 05/30/2019 15:52 EST 50 mcg Given 05/30/2019 14:59 EST 50 mcg HYDROmorphone (DILAUDUD) 2 mg/mL injection intravenous, PRN, Starting on Tue05/30/19 at 1606, Until Tue05/30/19 at 1731, Routine, Anesthesia Intraprocedure Given 05/30/2019 16:06 EST 0.4 mg lactated ringers (LR) infusion at 25 mL/hr, intravenous, CONTINUOUS, Starting on Tue05/30/19 at 1245, Until Tue05/30/19 at 2021, Routine, Preprocedure New Bag 05/30/2019 16:30 EST New Bag 05/30/2019 14:53 EST New Bag 05/30/2019 13:18 EST 25 mL/hr lidocaine 20 mg/mL (2 %) injection other, PRN, Starting on Tue05/30/19 at 1501, Until Tue05/30/19 at 1731, Routine, Anesthesia Intraprocedure Given 05/30/2019 15:01 EST 60 mg midazolam (PF) (VERSED) injection intravenous, PRN, Starting on Tue05/30/19 at 1453, Until Tue05/30/19 at 1731, Routine, Anesthesia Intraprocedure Given 05/30/2019 14:53 EST 2 mg ondansetron (PF) (ZOFRAN) injection intravenous, PRN, Starting on Tue05/30/19 at 1624, Until Tue05/30/19 at 1731, Routine, Anesthesia Intraprocedure Given 05/30/2019 16:24 EST 4 mg phenylephrine HCl in 0.9% NaCl injection iv push, PRN, Starting on Tue05/30/19 at 1527, Until Tue05/30/19 at 1731, Routine, Anesthesia Intraprocedure Given 05/30/2019 17:01 EST 100 mcg Given 05/30/2019 16:36 EST 100 mcg Given 05/30/2019 16:06 EST 100 mcg propofol (DIPRIVAN) 500 mg in 50 mL infusion intravenous, FA IP EQF CONTINUOUS PRN FOR ONE STEP MEDS, Starting on Tue05/30/19 at 1503, Until Tue05/30/19 at 1731, Routine, Anesthesia Intraprocedure Rate Change 05/30/2019 16:49 EST 60 mcg/kg/min 22.1 mL/hr Rate Change 05/30/2019 15:39 EST 140 mcg/kg/min 51.7 mL/hr New Bag 05/30/2019 15:03 EST 160 mcg/kg/min 59 mL/hr propOFol (DIPRIVAN) injection intravenous, PRN, Starting on Tue05/30/19 at 1501, Until Tue05/30/19 at 1731, Routine, Anesthesia Intraprocedure Given 05/30/2019 15:01 EST 160 mg rocuronium (ZEMURON) injection intravenous, PRN, Starting on Tue05/30/19 at 1502, Until Tue05/30/19 at 1731, Routine, Anesthesia Intraprocedure Given 05/30/2019 16:27 EST 15 mg Given 05/30/2019 15:52 EST 10 mg Given 05/30/2019 15:39 EST 10 mg sugammadex (BRIDION) injection intravenous, PRN, Starting on Tue05/30/19 at 1711, Until Tue05/30/19 at 1731, Routine, Anesthesia Intraprocedure Given 05/30/2019 17:11 EST 120 mg documented in this encounter Care Teams Churn Tender Relationship Specialty Start Date End Date Linda Blancas MD [address] [place] [address] PCP - General 01/06/11 Adolfo Carreno MD [address] [place] [address] 2 [place] [phone] General Surgery 04/26/19 Augustina Colin MD PhD [address] [place] [address] 2 [place] [phone] Medical Oncology 04/26/19 documented as of this encounter
--- OUTSIDE RECORDS SUMMARY | 2024-03-20 15:02 | XMS_ITS | Encounter Summary ---
Author Organization [facility] Address [address] [place] [address] Care Team Providers Care Oil Recovery Operator Name Role Phone Linda Blancas MD Primary Care Provider [phone] Adolfo Carreno MD Unavailable [phone] Augustina Colin MD PhD Unavailable Unavailable Reason for Visit * Reason Onset Date Comments Appointment Related 05/16/2019 Encounter Details Date Type Department Care Team (Late st Contact Info) Description 05/16/2019 Telephone [facility] Plastic, Reconstructive & Cosmetic Surgery - [address], [address] [place] [address] Tylor Boss MD [address] [phone] Appointment Related Social History Tobacco [...] * Telephone Encounter - Dasha Lockhart - 05/18/2019 0943 EST Patient has confirmed date change * Telephone Encounter - Dasha Lockhart - 05/16/2019 1319 EST Due to a change in the OR schedule Dr. Boss has asked that we move this case from 05/28 to 05/30 to accommodate a [place] surgery. Check in time will remain the same for surgery date 05/30. documented in this encounter Plan of Treatment Upcoming Encounters Date Type Department Care Team (Late st Contact Info) Description 04/02/2024 10:30 EDT Appointment [facility] Interventional Radiology Unit [address] [place] [id number] 04/02/2024 15:15 EDT Office Visit [facility] Surgical Oncology - [address] [phone] Adolfo Carreno MD [address] [facility], Level [address] [place] [phone] 04/05/2024 9:30 EDT Telemedicine [facility] - [facility] Palliative Care Services [address] [place], [place] [address] Chichi Woods MD [address] [facility], [address] [phone] 04/11/2024 15:00 EDT Telemedicine [facility] Hematology & Oncology - [address] [phone] Alisson Carreon MD [address] [place] [address], [facility] [address] [place] [phone] 04/13/2024 13:30 EDT Appointment [facility] Hematology & Oncology - [address] [phone] 04/13/2024 14:00 EDT Appointment [facility] Hematology & Oncology [address] [address] 04/16/2024 10:00 EST Telemedicine [facility] - [facility] Palliative Care Services [address] [place] [address] Chichi Woods MD [address] [place] [address], [address] [phone] 04/24/2024 9:00 EST Appointment [facility] Radiology CT Outpatient - [address] [id number] 04/24/2024 11:00 EST Appointment [facility] Breast Imaging - [address] [id number] 04/27/2024 12:00 EST Appointment [facility] Hematology & Oncology - [address] [id number] 05/02/2024 15:00 EST Telemedicine [facility] Hematology & Oncology [address] [phone] Alisson Carreon MD [address] [place] [address], [facility] [address] [place] [phone] 05/04/2024 10:15 EST Ancillary Procedure [facility] Cardiology - [address] [place] [address] 05/04/2024 11:30 EST Appointment [facility] Hematology & Oncology [address] [address] 05/04/2024 12:00 EST Appointment [facility] Hematology & Oncology [address] [id number] 06/12/2024 13:00 EST Appointment [facility] Radiology CT - [address] [phone] documented as of this encounter Visit Diagnoses Not on filedocumented in this encounter Care Teams Oil Recovery Operator Relationship Specialty Start Date End Date Linda Blancas MD [facility] [address] [place] [address] PCP - General 01/06/11 Adolfo Carreno MD [address] [place] [address] 2 [place] [phone] General Surgery 04/26/19 Augustina Colin MD PhD [address] [place] [address] 2 [place] [phone] Medical Oncology 04/26/19 documented as of this encounter
--- OUTSIDE RECORDS SUMMARY | 2024-03-20 15:02 | XMS_ITS | Encounter Summary ---
Author Organization [facility] Address [address] [place] [address] Care Team Providers Care Business System Consultant Name Role Phone Linda Blancas MD Primary Care Provider Adolfo Carreno MD Unavailable Augustina Colin MD PhD Unavailable Unavailable Reason for Referral * (Routine) - New Request Specialty Diagnoses / Procedures Referred By Contac t Referred To Contact Aman Henderson MD [address] [place] [address] Referral ID Status Reason Start Date Expiration Date Visits Requested Visits Authorized [id number] New Request Specialty Services Required 9 1 1 Comments - A temperature greater than 100.5 degrees. - Excessive bleeding saturating the dressings. - A sudden increase in drainage, pain, or swelling at the incision site or the surrounding area. - If you have persistent vomiting, have a pharmacy number so a script can be called in. - Any questions regarding your care. IF YOU HAVE A LIFE THREATENING EMERGENCY CALL 911 AND GO TO THE NEAREST HOSPITAL * (Routine) - New Request Specialty Diagnoses / Procedures Referred By Contac t Referred To Contact Aman Henderson MD [address] [place] [address] Referral ID Status Reason Start Date Expiration Date Visits Requested Visits Authorized [id number] New Request Specialty Services Required 9 [address] Boss in 7-10 days or as scheduled. Call [phone] for questions or concerns. Reason for Visit * Auth/Cert Specialty Diagnoses / Procedures Referred By Doug t Referred To Contact Diagnoses Personal history of malignant neoplasm of breast Procedures DC DELAY BREAST PROS AFTER BREAST SURG Exchange right tissue husker operator to silicone implant, exchange of left implant for matching Referral ID Status Reason Start Date Expiration Date Visits Re quested Visits Authorized [id number] 1 1 Encounter Details Date Type Department Care Team (Latest Contact Info) Description 05/30/2019 11:09 EST - 05/30/2019 18:21 EST Hospital Encounter [facility] [place] [address] [place], [place] [id number] Tylor Boss MD [address] [place] [phone] Discharge Disposition: Home or Self Care [...] Sign Reading Time Taken Comments Blood Pressure 110/75 05/30/2019 1800 EST Pulse - - Temperature 36.3 ??C (97.3 ??F) 05/30/2019 1800 EST Respiratory Rate 14 05/30/2019 1800 EST Oxygen Saturation 96% 05/30/2019 1800 EST Inhaled Oxygen Concentration - - Weight 61.5 kg (135 lb 9.3 oz) 05/30/[address] Height - - Body Mass Index 25.2 05/07/2019 0913 EST documented in this encounter [...] as needed. 12/07/2023 letrozole (FEMARA) 2.5 mg tabletIndications:Perso nal history of malignant neoplasm of breast,Breast lump TAKE 1 TABLET DAILY 90 Tab 3 01/15/2019 01/10/2020 mv-mn/C/glutamin/lysin/ [id number] (AIRBORNE, ASCORBATE SODIUM, ORAL) Take by mouth [...] Dispensed Refills Start Date End Da te cephALEXin (KEFLEX) 500 mg capsule Take 1 Cap by mouth every 6 hours for 7 days. 28 Cap 05/30/2019 06/06/2019 HYDROmorphone (DILAUDID) 2 mg tablet Take 1-2 Tabs by mouth every 4 hours as needed for Pain. Daily Max: 24 mg 8 Tab 05/30/2019 05/14/2020 documented in this encounter Discharge Disposition Disposition Code Departure Means Destination Home or Self Prison documented in this encounter H&P Notes * Aman Henderson MD - 05/30/2019 1346 EST The preoperative history and physical which was performed within 30 days of this procedure has been reviewed and the clinically appropriate elements of the physical examination have been repeated. There are no changes to the documented history and physical or if so such changes are documented below Aman Henderson MD 05/30/2019 13:46 Source Note - STOPPERER ASSEMBLER, ERIK 2 - 05/09/2019 14:04 EST documented in this encounter Nursing Notes * Rosa Khan RN - 05/30/2019 1341 EST Patient had apparent vagal response to IV being inserted. Pt complained of dizziness, became diaphoretic and felt high. Cold cloths applied to head and neck, blood sugar checked. Pt returned to baseline within 5 minutes. documented in this encounter OR Notes * OR Surgeon - Tylor Boss MD - 05/30/2019 0000 EST OPERATIVE REPORT SERVICE DATE: 05/30/2019 PREOPERATIVE DIAGNOSES: 1. Status post right breast reconstruction with secondary tissue expansion. 2. Status post left breast augmentation for matching. POSTOPERATIVE DIAGNOSIS: PROCEDURE: 1. Exchange of tissue husker operator for silicone implant. 2. Exchange of the existing implant for volume matching to new silicone implant. SURGEON: Tylor Boss MD BLOCK OUT MACHINE OPERATOR: Aman Henderson MD ANESTHESIA: General endotracheal. INDICATIONS: Please see office dictation. Briefly, Sendy Bernstein is a 58-year-old female who had a right breast cancer, subsequent mastectomy, subsequent reconstruction, subsequent recurrence and subsequent secondary reconstruction with tissue husker operator. She desires being on the larger side and did not feel that the augmentation on the left side was adequate. Risks and benefits breast reconstruction and implant exchange were thoroughly discussed. Signed informed [place] [employer] and signed informed hospital consent are in the electronic health record. NARRATIVE: The patient was seen preoperatively and marked accordingly in standing position. Stage Iof each of the WHO checklist was appropriately completed. The patient was then taken to the operative suite and placed supine on the operating room table. After general endotracheal anesthesia was induced without incident, the patient was prepped with ChloraPrep and draped in standard sterile manner. Stage II of the WHO checklist was appropriately completed. Attention was first turned to the right side. Here, the mastectomy scar was excised and sent for permanent pathology. The resection was carried down to the AlloDerm pectoralis junction, which was then opened with Bovie electrocautery. Tissue husker operator was deflated. A standard capsulotomy was performed from inferomedial to superolateral. A series of sizers were then placed to attempt to match the appropriate size implant. I ended up placing a 650 mL High Profile Xtra smooth round implant. The left side mastectomy scar was excised, and dissection was carried down to find the AlloDerm pectoralis junction, which here too was opened with cautery. I then performed a similar capsulotomy as the implant was going to be larger. Several different size sizers were placed eventually settling on 350 mL High Profile Xtra implant. Once the sizers were placed in a breast temporarily closed in 2 layers, the patient was placed in seated position and good symmetry was noted. I then exchanged the sizers to permanent implants. Once these implants were placed, the AlloDerm pectoralis junction was closed with buried interrupted 3-0 PDS. The skinwas closed with buried interrupted 3-0 Monocryl and running 4-0 Monocryl and dressed with benzoin and 1-inch sterile paper tape. At all times during the case whenever a sizer implant was placed gloves were changed, the skin was reprepped with Betadine, the device and then the pocket were irrigated with triple antibiotic solution. I was the only one that handled the implants. The patient was awaken ed, extubated and transferred to the recovery room in stable condition having tolerated the procedure well. At the end of the case, all needle, instrument and sponge counts were correct. Postop briefnoted no deficiencies. Third stage of WHO checklist was appropriately completed. Unless otherwise noted, there were no complications, no blood loss, no cultures obtained, no specimens removed, and no drains retained. Tylor Boss MD 02 38 AM / Tylor Boss MD tn Confirmation: [id number] Dictation ID: [id number] documented in this encounter Miscellaneous Notes * Brief Op Note - Aman Henderson MD - 05/30/2019 1720 EST Brief Post-Op Note Date of Surgery: 05/30/2019 Surgeon: Tylor Boss MD Resident: Aman Henderson MD Pre-Op Diagnosis: history of breast cancer Post-Op Diagnosis: same Procedure(s): Right chest tissue husker operator exchange for implant, left sided implant exchange Findings: see attending dictation Anesthesia Type: General Estimated Blood Loss: less than 100 mL Fluids: 1200 cc crystalloid Urine Output: no dunn Specimens/Cultures: see below Drains/Packs: None Complications: None Disposition and Condition: sent to PACU in Stable condition. Aman Henderson MD 05/30/2019 17:20 Specimens: ID Type Source Tests Collected by Time Destination 1 : right mastectomy scar Tissue Soft Tissue SURGICAL PATHOLOGY Tylor Boss MD 05/30/20191604 2 : left mastopexy scar Tissue Soft Tissue SURGICAL PATHOLOGY Tylor Boss MD 05/30/2019 1605 Implantss: Implant Name Type Inv. Item Serial No. Supervising Law Enforcement Analyst Lot No. LRB No. Used IMPLANT BREAST GEL SMOOTH 355CC [id number] - [id number] - [id number] Breast Implant IMPLANT BREAST GEL SMOOTH 355CC [id number] [employer] Left 1 IMPLANT BREAST GEL SMOOTH 650CC MEMORYGEL [id number] - [id number] Breast Implant IMPLANT BREAST GEL SMOOTH 650CC MEMORYGEL [id number] [employer] Right 1 documented in this encounter Plan of Treatment Upcoming Encounters Date Type Department Care Team (Late st Contact Info) Description 04/02/2024 10:30 EDT Appointment [facility] Interventional Radiology Unit [address] [place] [phone] 04/02/2024 15:15 EDT Office Visit [facility] Surgical Oncology - [address] [phone] Adolfo Carreno MD [address] [place] [address] [address] [place] [phone] 04/05/2024 9:30 EDT Telemedicine [facility] Pall[facility] [address] [place] [address] [phone] Chichi Woods MD [address] [place] [address], [address] [phone] 04/11/2024 15:00 EDT Telemedicine [facility] Hematology & Oncology - [address] [phone] Alisson Carreon MD [address] [place] [address] 2 [place] [phone] 04/13/2024 13:30 EDT Appointment [facility] Hematology & Oncology [address] [phone] 04/13/2024 14:00 EDT Appointment [facility] Hematology & Oncology - [address] [phone] 04/16/2024 10:00 EST Telemedicine [facility] [address] [place] [phone] Chichi Woods MD [address] [facility], [address] [phone] 04/24/2024 9:00 EST Appointment [facility] Radiology CT Outpatient - [address] [phone] 04/24/2024 11:00 EST Appointment [facility] Breast Imaging - [facility] [address] [place] [address] [place], [place] [address] 04/27/2024 12:00 EST Appointment [facility] Hematology & Oncology - [address] [phone] 05/02/2024 15:00 EST Telemedicine [facility] Hematology & Oncology - [address] [phone] Alisson Carreon MD [address] [place] [address], Level [address] [place] [phone] 05/04/2024 10:15 EST Ancillary Procedure [facility] Cardiology [place] [place] [address] 05/04/2024 11:30 EST Appointment [facility] Hematology & Oncology - [address] [phone] 05/04/2024 12:00 EST Appointment [facility] Hematology & Oncology - [address] [phone] 06/12/2024 13:00 EST Appointment [facility] Radiology CT - [address] [phone] Scheduled Referrals Name Type Priority Associated Diagnoses Order Schedule PROVIDER FOLLOW-UP INSTRUCTIONS Outpatient Referral Routine Ordered: 05/30/2019 PROVIDER FOLLOW-UP INSTRUCTIONS Outpatient Referral Routine Ordered: 05/30/2019 documented as of this encounter Procedures Procedure Name Priority Date/Time Associated Diagnosis Comments IMPLANT RECORD - SCANNED 06/07/2019 11:24 EST IMPLANT RECORD - SCANNED 06/04/2019 8:37 EST SURGICAL PATHOLOGY Routine 05/30/2019 16 :04 EST INSERTION BREAST IMPLANT ON SEPARATE DAY FROM MASTECTOMY BIGEL 05/30/2019 14:42 EST Personal history of malignant neoplasm of breast Special Needs 350-3001BC, 3251BC, 3501BC, 3751BC, 4001BC, 4251BC, 4501BC x2 each 350-3004BC, 3254BC, 3504BC, 3754BC, 4004BC, 4254BC, 4504BC, 4754BC, 5004BC, [id number], 295, 325, 350, 370, 405, 440, 465 x2 [id number], 380, 415, 450, 465, 490, 535, 560, 595 x 2 each POCT GLUCOSE, INTERFACED Routine 05/30/2019 13:04 EST documented in this encounter Results * IMPLANT RECORD - SCANNED (06/07/2019 11:24 EST) 06/07/2019 11:2 4 EST Scan 2 Receivable Manager PROCEDURE/MINOR AJ GICAL ORDERABLES * IMPLANT RECORD - SCANNED (06/04/2019 8:37 EST) 06/04/2019 8:37 EST Scan 2 Receivable Manager PROCEDURE/MINOR AJ GICAL ORDERABLES * SURGICAL PATHOLOGY (05/30/2019 16:04 EST) Final Diagnosis A. SKIN OF BREAST, RIGHT,MASTECTOMY SCAR, EXCISION: - Benign skin with scar. B. SKIN OF BREAST, LEFT,MASTECTOMY SCAR, EXCISION: - Benign skin and subcutaneous tissue with scar. Rashad Silva MD 06/07/2019 07:29 06/07/2019 11:15 [facility] at 1115 Clinical History Personal history of malignant neoplasm of the breast 06/07/2019 11:15 [facility] Attestation There was significant resident/fellow involvement in the diagnostic evaluation of this case. By the signature below, the attending physician certifies that they have personally conducted a gross and/or microscopic examination of the described specimens and rendered or confirmed the above diagnosis. 06/07/2019 11:15 [facility] at 1115 Gross Description A. Received in normal saline labelled with proper patient identification (initials O, K) and right mastectomy scar is a thin strip of moura-pink skin measuring 5.5 cm x 0.2 cm and excised to a depth of 0.4 cm. No lesions are identified on gross examination. The specimen is entirely submitted in A1-A2. B. Received in normal saline labelled with proper patient identification (initials O, K) and left mastopexy scar is an ellipse of skin with attached moura-yellow fibroadipose tissue (4.8 cm x 1.5 cm x 1.5 cm). The overlying skin measures 4.8 cm x 1.5 cm and is excised to a depth of 0.3 cm. No definitive lesions are identified on gross examination. Locomotive Engineer sections are submitted in B1-B2 Rashad Silva MD 06/01/2019 16:02 06/07/2019 11:15 [facility] Resident/Junior w: Rashad Silva MD 06/07/2019 11:15 [facility] Scanned Images 06/07/2019 11:15 [facility] Tissue TISSUE SPECIMEN FROM SKIN / Unknown 05/30/2019 16:04 EST 05/31/2019 9:19 EST Tissue specimen (specimen) SPECIMEN FROM SKIN / Unknown 05/30/2019 16:05 EST 05/31/2019 9:19 EST Tylor Boss MD FACS PATHOLOGY OR DERABLES [facility] [address] [place] [address] * POCT GLUCOSE, GLUCOMETER (05/30/2019 13:04 EST) Glucose, POC 96 70 - 100 mg/dL 05/30/2019 13:09 EST [facility] car worker helper ID [id number] 05/30/2019 13:09 EST [facility] HN LAB POC COMMENT (GLUCOSE) Test Performed by Nursing Services 05/30/2019 13:09 EST [facility] Blood CAPILLARY BLOOD / Unknown 05/30/2019 13:04 EST 05/30/2019 13:09 EST Tylor Boss MD FACS POINT OF CAR E TEST ORDERABLES [facility] [address] [phone] documented in this encounter Visit Diagnoses Diagnosis Personal history of malignant neoplasm of breast- Primary documented in this encounter Administered Medications Inactive Administered Medications - up to 3 most recent administrations Medication Order MAR Action Action Date Dose Rate Site lactated ringers (LR) infusion at 25 mL/hr, intravenous, CONTINUOUS, Starting on Tue05/30/19 at 1245, Until Tue05/30/19 at 2020, Routine, Preprocedure New Bag 05/30/2019 16:30 EST New Bag 05/30/2019 14:53 EST New Bag 05/30/2019 13:18 EST 25 mL/hr lactated ringers (LR) infusion at 75 mL/hr, intravenous, CONTINUOUS, Starting on Tue05/30/19 at 1730, Until Tue05/30/19 at 2020, Routine, Recovery (only) Rate Documented 05/30/2019 17:30 EST 75 mL/hr documented in this encounter Active and Recently Administered Medications Times are shown in EST. Scheduled Medication Order 05/28/2019 05/29/2019 05/30/2019 ceFAZolin (ANCEF) syringe 2 g (COMPLETED) 2 g, intravenous, Administer over 10 Minutes, PRE-OP ONCE, 1 dose, On Tue05/30/19 at 1415, Routine 1514 (Given - Provid er: Yovana Bradshaw APRN) Continuous Medication Order 05/28/2019 05/29/2019 05/30/2019 lactated ringers (LR) infusion at 25 mL/hr, intravenous, CONTINUOUS, Starting on Tue05/30/19 at 1245, Until Tue05/30/19 at 2021, Routine, Preprocedure 1318 (New Bag - Prov ider: Rosa Khan RN)1453 (New Bag - Provider: Yovana Bradshaw APRN)1630 (New Bag - Provider: Yovana Bradshaw APRN)1719 (Completed - Provider: Yovana Bradshaw APRN) lactated ringers (LR) infusion at 75 mL/hr, intravenous, CONTINUOUS, Starting on Tue05/30/19 at 1730, Until Tue05/30/19 at 2021, Routine, Recovery (only) 1730 (Rate Documente d - Provider: Anna Bray RN) PRN Medication Order 05/28/2019 05/29/2019 05/30/2019 hydrogen peroxide 3 % external solution (CANCELED) As needed, Starting on Tue05/30/19 at 1638, Until Tue05/30/19 at 1739, Intraprocedure 1638 (Given - Provid er: Tylor Boss MD - Comment: SURGICAL SITE) sodium chloride 0.9 % 1,000 mL with bacitracin 50,000 Units, ceFAZolin (ANCEF) 1,000 mg, gentamicin (GARAMYCIN) 100 mg (CANCELED) As needed, Starting on Tue05/30/19 at 1521, Until Tue05/30/19 at 1739, Routine, Intraprocedure 1521 (Given - Provid er: Tylor Boss MD - Comment: SURGICAL SITE) sodium chloride 0.9 % 500 mL with bacitracin 50,000 Units, povidone-iodine (BETADINE) 10 % 60 mL (CANCELED) As needed, Starting on Tue05/30/19 at 1521, Until Tue05/30/19 at 1739, Routine, Intraprocedure 1521 (Given - Provid er: Tylor Boss MD - Comment: SURGICAL SITES) documented in this encounter Orders Medications Ordered That Vj ht Not Have Been Administered Count Last Ordered Date First Ordered Date atropine 0.1 mg/mL syringe 0.5 mg 1 019 ceFAZolin (ANCEF) syringe 2 g 1 05/30/2019 diphenhydrAMINE (BENADRYL) i njection 12.5 mg 1 05/30/2019 fentaNYL citrate (PF) injection 25-50 mcg 1 05/30/2019 hydrogen peroxide 3 % external solution 1 1 07/31/2018 HYDROmorphone (DILAUDID) tablet 2-4 mg 1 HYDROmorphone (PF) (DILAUDID ) 0.5 mg/0.5 mL syringe 0.3-0.5 mg 1 05/30/2019 lidocaine (PF) 10 mg/mL (1 % ) injection 2 mg 1 05/30/2019 metoCLOPramide (REGLAN) injection 10 mg 1 1 07/31/2018 naloxone (NARCAN) injection 0.2 mg 1 2018 ondansetron (PF) (ZOFRAN) injection 4 mg 1 05/30/2019 sodium chloride 0.9 % 1,000 mL with bacitracin 50,000 Units, ceFAZolin (ANCEF) 1,000 mg, gentamicin (GARAMYCIN) 100 mg 1 05/30/2019 sodium chloride 0.9 % 500 mL with bacitracin 50,000 Units, povidone-iodine (BETADINE) 10 % 60 mL 1 05/30/2019 Diet Count Last Ordered Date First Orde red Date DISCHARGE DIET 1 05/30/2019 Nursing Count Last Ordered Date First Orde red Date ACTIVITY INSTRUCTIONS 1 05/30/2019 WOUND CARE INSTRUCTIONS 1 05/30/2019 Discharge Count Last Ordered Date First Orde red Date DISCHARGE PATIENT 2 05/30/2019 Legal Count Last Ordered Date First Orde red Date MISCELLANEOUS DISCHARGE INSTRUCTIONS 1 05/13 documented in this encounter Care Teams Business System Consultant Relationship Specialty Start Date End Date Linda Blancas MD [facility] [address] [place] [address] PCP - General 01/06/11 Adolfo Carreno MD [address] [place] [address], [facility], [facility] [address] [place] [phone] General Surgery 04/26/19 Augustina Colin MD PhD [address] [facility], [facility] [address] [place] [phone] Medical Oncology 04/26/19 documented as of this encounter
--- OUTSIDE RECORDS SUMMARY | 2024-03-20 15:02 | XMS_ITS | Encounter Summary ---
Author Organization [facility] Address [address] [place] [address] Care Team Providers Care Tax Appraiser Name Role Phone Linda Blancas MD Primary Care Provider [phone] Adolfo Carreno MD Unavailable [phone] Augustina Colin MD PhD Unavailable Unavailable Reason for Visit * Auth/Cert Specialty Diagnoses / Procedures Referred By Doug hearn Referred To Contact Diagnoses Personal history of malignant neoplasm of breast Procedures [place] DELAY BREAST PROS AFTER BREAST SURG Exchange right tissue cloth classer to silicone implant, exchange of left implant for matching Referral ID Status Reason Start Date Expiration Date Visits Re quested Visits Authorized [id number] 1 1 Encounter Details Date Type Department Care Team (Late st Contact Info) Description 05/30/2019 13:20 EST - 05/30/2019 17:00 EST Surgery [facility] Main [place] OR [address] [place], [place] [address] Tylor Boss MD [address] [place] [phone] Exchange right tissue cloth classer to silicone implant, exchange of left implant for matching [[id number] (CPT??)] Surgery Details Date/Time Status Location OR Service Patient Class Case Cl ass Case Type Trauma Case? 05/30/19 1320 Posted [facility] OR [facility] H - Elective Panel 1 Procedure LRB Anes Op Region Wound Class Comments Exchange right tissue expand er to silicone implant, exchange of left implant for matching Bilateral General Class I/ Clean Surgeon Surgeon Role Service Panel Tylor Boss MD FACS Primary Plastics 1 Aman Henderson MD Resident - Assisting Plastics 1 Special Needs 350-3001BC, 3251BC, 3501BC, 3751BC, 4001BC, 4251BC, 4501BC x2 each 350-3004BC, 3254BC, 3504BC, 3754BC, 4004BC, 4254BC, 4504BC, 4754BC, 5004BC, [id number], 295, 325, 350, 370, 405, 440, 465 x2 [id number], 380, 415, 450, 465, 490, 535, 560, 595 x 2 each documented in this encounter Social History Tobacco [...] Sign Reading Time Taken Comments Blood Pressure 125/67 05/30/2019 1145 EST Pulse - - Temperature 35.7 ??C (96.3 ??F) 05/30/2019 1145 EST Respiratory Rate 16 05/30/2019 1145 EST Oxygen Saturation 99% 05/30/2019 1145 EST Inhaled Oxygen Concentration - - Weight [...] DAILY 90 Tab 3 01/15/2019 01/10/2020 mv-mn/C/glutamin/lysin/ [id number] (AIRBORNE, ASCORBATE SODIUM, ORAL) Take by mouth [...] Henderson MD 05/30/2019 13:46 Source Note - BLUNGER, SCAN 2 - 05/09/2019 14:04 EST documented in [...] POSTOPERATIVE DIAGNOSIS: PROCEDURE: 1. Exchange of tissue cloth classer for silicone implant. 2. Exchange of the existing implant for volume matching to new silicone implant. SURGEON: Tylor Boss MD EMBEDDED DEVELOPER: Aman Henderson MD ANESTHESIA: General endotracheal. INDICATIONS: Please see office dictation. Briefly, Sendy Bernstein is a 58-year-old female who had a right breast cancer, subsequent mastectomy, subsequent reconstruction, subsequent recurrence and subsequent secondary reconstruction with tissue cloth classer. She desires being on the larger side and did not feel that the augmentation on the left side was adequate. Risks and benefits breast reconstruction and implant exchange were thoroughly discussed. Signed informed [employer] and signed informed [...] was then opened with Bovie electrocautery. Tissue cloth classer was deflated. A standard capsulotomy was performed [...] AM / Tylor Boss MD tn Confirmation: [id number] Dictation ID: [id number] documented in this encounter Miscellaneous Notes * Brief Op Note - Aman Henderson MD - 05/30/2019 1720 EST Brief Post-Op Note Date of Surgery: 05/30/2019 Surgeon: Tylor Boss MD Resident: Aman Henderson MD Pre-Op Diagnosis: history of breast cancer Post-Op Diagnosis: same Procedure(s): Right chest tissue cloth classer exchange for implant, left sided implant exchange [...] Implant Name Type Inv. Item Serial No. Supervisor Instrument Mechanics Lot No. LRB No. Used IMPLANT BREAST GEL SMOOTH 355CC [id number] - [id number] - [id number] Breast Implant IMPLANT BREAST GEL SMOOTH 355CC [id number] Gelato [place] Left 1 IMPLANT BREAST GEL SMOOTH 650CC MEMORYGEL [id number] - [id number] - [id number] Breast Implant IMPLANT BREAST GEL SMOOTH 650 [facility] [id number] [employer]ato [place] Right 1 documented in this encounter Plan of Treatment Upcoming Encounters Date Type Department Care Team (Late st Contact Info) Description 04/02/2024 10:30 EDT Appointment [facility] Interventional Radiology Unit [address] [place] [address] [phone] 04/02/2024 15:15 EDT Office Visit [facility] Surgical Oncology - [address] [phone] Adolfo Carreno MD [address] [place] [phone] 04/05/2024 9:30 EDT Telemedicine [facility] Palliative Care Services [address] [place] [address] [phone] Chichi Woods MD [address] [place] [address] [phone] 04/11/2024 15:[address] [facility] Hematology & Oncology [address] [phone] Alisson Carreon MD [address] [place] [address] 2 [place] [phone] 04/13/2024 13:[address] [facility] Hematology & Oncology [address] [phone] 04/13/2024 14:[address] [facility] Hematology & Oncology [address] [phone] 04/16/2024 10:00 EST Telemedicine [facility] Palliative Care Services [address] [place], [place] [address] Chichi Woods MD [address] [place] [address], [address] [phone] 04/24/2024 9:00 EST Appointment [facility] Radiology CT Outpatient - [address] [id number] 04/24/2024 11:00 EST Appointment [facility] Breast Imaging - [address] [phone] 04/27/2024 12:[address] [facility] Hematology & Oncology - [address] [phone] 05/02/2024 15:[address] [facility] Hematology & Oncology [address] 183041 Alisson Carreon MD [address] [place] [address], Level [address] [place] [phone] 05/04/2024 10:15 EST Ancillary Procedure [facility] Cardiology - [place] [address] 05/04/2024 11:[address] Hematology & Oncology - [address] [phone] 05/04/2024 12:[address] [facility] Hematology & Oncology - [address] [phone] 06/12/2024 13:00 EST Appointment [facility] Radiology CT - [address] [phone] Scheduled Referrals Name Type Priority Associated Diagnoses [...] 3504BC, 3754BC, 4004BC, 4254BC, 4504BC, 4754BC, 5004BC, [id number], 295, 325, 350, 370, 405, 440, 465 x2 [id number], 380, 415, 450, 465, 490, 535, 560, 595 x 2 each POCT GLUCOSE, INTERFACED Routine 05/30/2019 13:04 EST documented in this encounter Results * IMPLANT RECORD - SCANNED (06/07/2019 11:24 EST) 06/07/2019 11:2 4 EST Scan 2 Component Inspector PROCEDURE/MINOR AJ GICAL ORDERABLES * IMPLANT RECORD - SCANNED (06/04/2019 8:37 EST) 06/04/2019 8:37 EST Scan 2 Component Inspector PROCEDURE/MINOR AJ GICAL ORDERABLES * SURGICAL PATHOLOGY (05/30/2019 16:04 EST) Final Diagnosis A. SKIN OF BREAST, RIGHT,MASTECTOMY SCAR, EXCISION: - Benign skin with scar. B. SKIN OF BREAST, LEFT,MASTECTOMY SCAR, EXCISION: - Benign skin and subcutaneous tissue with scar. Rashad Silva MD 06/07/2019 07:29 06/07/2019 11:15 EST [facility] at 1115 Clinical History Personal history of malignant neoplasm of the breast 06/07/2019 11:15 [facility] Attestation There was significant resident/fellow involvement in the diagnostic evaluation of this case. By the signature below, the attending physician certifies that they have personally conducted a gross and/or microscopic examination of the described specimens and rendered or confirmed the above diagnosis. 06/07/2019 11:15 [facility] at 1115 Gross Description A. [...] definitive lesions are identified on gross examination. Shampoo Assistant sections are submitted in B1-B2 Rashad Silva MD 06/01/2019 16:02 06/07/2019 11:15 [facility] Resident/Junior w: Rashad Silva MD 06/07/2019 11:15 [facility] Scanned Images 06/07/2019 11:15 [facility] Tissue TISSUE SPECIMEN FROM SKIN / Unknown 05/30/2019 16:04 EST 05/31/2019 9:19 EST Tissue specimen (specimen) SPECIMEN FROM SKIN / Unknown 05/30/2019 16:05 EST 05/31/2019 9:19 EST Tylor Boss MD FACS PATHOLOGY OR DERABLES [facility] [address] [place] [address] * POCT GLUCOSE, GLUCOMETER (05/30/2019 13:04 EST) Glucose, POC 96 70 - 100 mg/dL 05/30/2019 13:09 EST [facility] crusher screen repairer ID [id number] 05/30/2019 13:09 EST [facility] HN LAB POC COMMENT (GLUCOSE) Test Performed by Nursing Services 05/30/2019 13:09 EST [facility] Blood CAPILLARY BLOOD / Unknown 05/30/2019 13:04 EST 05/30/2019 13:09 EST Tylor Boss MD FACS POINT OF CAR E TEST ORDERABLES [facility] [address] [place] [address] documented in this encounter Visit Diagnoses Diagnosis Personal history of malignant neoplasm of breast documented in this encounter Administered Medications Inactive Administered Medications - up to 3 most recent administrations Medication Order MAR Action Action Date Dose Rate Site hydrogen peroxide 3 % external solution As needed, Starting on Tue05/30/19 at 1638, Until Tue05/30/19 at 1739, Intraprocedure Given 05/30/2019 16:38 EST 240 mL Other lactated ringers (LR) infusion at 25 mL/hr, [...] Rate Documented 05/30/2019 17:30 EST 75 mL/hr sodium chloride 0.9 % 1,000 mL with bacitracin 50,000 Units, ceFAZolin (ANCEF) 1,000 mg, gentamicin (GARAMYCIN) 100 mg As needed, Starting on Tue05/30/19 at 1521, Until Tue05/30/19 at 1739, Routine, Intraprocedure Given 05/30/2019 15:21 EST 1,000 mL Other sodium chloride 0.9 % 500 mL with bacitracin 50,000 Units, povidone-iodine (BETADINE) 10 % 60 mL As needed, Starting on Tue05/30/19 at 1521, Until Tue05/30/19 at 1739, Routine, Intraprocedure Given 05/30/2019 15:21 EST 500 mL Other documented in this encounter Active and Recently [...] citrate (PF) injection 25-50 mcg 1 05/30/2019 HYDROmorphone (DILAUDID) tablet 2-4 mg 1 HYDROmorphone (PF) (DILAUDID ) 0.5 mg/0.5 mL syringe 0.3-0.5 mg 1 05/30/2019 lidocaine (PF) 10 mg/mL (1 % ) injection 2 mg 1 05/30/2019 metoCLOPramide (REGLAN) injection 10 mg 1 1 07/31/2018 naloxone (NARCAN) injection 0.2 mg 1 2018 ondansetron (PF) (ZOFRAN) injection 4 mg 1 05/30/2019 Diet Count Last Ordered Date [...] 05/13 documented in this encounter Care Teams Tax Appraiser Relationship Specialty Start Date End Date Linda Blancas MD [facility] [address] [place] [address] PCP - General 01/06/11 Adolfo Carreno MD [address] [place] [address] 2 [place] [phone] General Surgery 04/26/19 Augustina Colin MD PhD [address] [place] [phone] Medical Oncology 04/26/19 documented as of this encounter
--- OUTSIDE RECORDS SUMMARY | 2024-03-20 15:02 | XMS_ITS | Encounter Summary ---
Author Organization [facility] Address [address] [place] [address] Care Team Providers Care Director Index Name Role Phone Linda Blancas MD Primary Care Provider [phone] Encounter Details Date Type Department Care Team (Latest Contact Info) Description 03/16/2019 11:31 EDT - 03/16/2019 23:59 EDT Hospital Encounter [facility] [address] [place] [address] Augustina Colin MD PhD Discharge Disposition: Home or Self Care Social [...] 03/24/2018 documented as of this encounter Discharge Diagnoses Diagnosis C50.919 Malignant neoplasm of unspecified site of unspecified female breast-C50.919[ICD-10-CM] documented in this encounter Medications at Time [...] Max: 24 mg 8 Tab 05/30/2019 05/14/2020 HYDROmorphone (DILAUDID) 2 mg tablet Take 1 tablet by mouth every 4 hours as needed for Pain. Daily Max: 12 mg 15 tablet 08/30/2018 05/07/2019 letrozole (FEMARA) 2.5 mg tabletIndications:Pers onal history of malignant neoplasm of breast,Breast lump TAKE 1 TABLET DAILY 90 Tab 3 01/15/2019 01/10/2020 mv-mn/C/glutamin/lysin /[id number] (AIRBORNE, ASCORBATE SODIUM, ORAL) Take by mouth [...] or Self Intermediate documented in this encounter Plan of Treatment Upcoming Encounters Date Type Department Care Team (Late st Contact Info) Description 04/02/2024 10:30 EDT Appointment [facility] Interventional Radiology Unit [address] [place] [address] [phone] 04/02/2024 15:15 EDT Office Visit [facility] Surgical Oncology [address] 135241 Adolfo Carreno MD [address] [place] [address] 2 [place] [phone] 04/05/2024 9:30 EDT Telemedicine [facility] - [facility] Palliative Care Services [address] [place], [place] [phone] Chichi Woods MD [address] [place] [address] [phone] 04/11/2024 15:00 EDT Telemedicine [facility] Hematology & Oncology [address] [phone] Alisson Carreon MD [address] [place] [address] 2 [place] [phone] 04/13/2024 13:30 EDT Appointment [facility] Hematology & Oncology [address] [phone] 04/13/2024 14:00 EDT Appointment [facility] Hematology & Oncology - [address] [phone] 04/16/2024 10:00 EST Telemedicine [facility] - [facility] Palliative Care Services [address] [place] [address] [phone] Chichi Woods MD [address] [place] [address], [address] [phone] 04/24/2024 9:00 EST Appointment [facility] Radiology CT Outpatient - [address] [phone] 04/24/2024 11:00 EST Appointment [facility] Breast Imaging - [address] [phone] 04/27/2024 12:00 EST Appointment [facility] Hematology & Oncology - [address] [phone] 05/02/2024 15:00 EST Telemedicine [facility] Hematology & Oncology - [address] [phone] Alisson Carreon MD [address] [place] [address], Level [address] [place] [phone] 05/04/2024 10:15 EST Ancillary Procedure [facility] Cardiology - [place] [address] 05/04/2024 11:30 EST Appointment [facility] Hematology & Oncology - [address] [phone] 05/04/2024 12:00 EST Appointment [facility] Hematology & Oncology - [address] [phone] 06/12/2024 13:00 EST Appointment [facility] Radiology CT - [address] [address] documented as of this encounter Visit Diagnoses Not on filedocumented in this encounter Care Teams Director Index Relationship Specialty Start Date End Date Linda Blancas MD [address] [place] [address] PCP - General 01/06/11 documented as of this encounter
--- OUTSIDE RECORDS SUMMARY | 2024-03-20 15:02 | XMS_ITS | Encounter Summary ---
Author Organization [facility] Address [address] [place] [address] Care Team Providers Care Manager Program Name Role Phone Linda Blancas MD Primary Care Provider [phone] Reason for Visit * Reason Onset Date Comments Labs Only 03/12/2019 Encounter Details Date Type Department Care Team (Late st Contact Info) Description 03/12/2019 Telephone [facility] Hematology & Oncology - [facility] [address] [place], [place] [phone] [facility], [place] Labs Only Social History Tobacco Use Types [...] Miscellaneous Notes * Telephone Encounter - Bambi Gaxiola RN - 03/13/2019 0950 EDT Called and LM for Matti and advised that the lab orders sent yesterday were sent as one time only by mistake. Advised to go ahead and draw these and we will send over new standing lab orders at thistime. * Telephone Encounter - Madison Ruby - 03/12/2019 1042 EDT Matti called received lab orders from [facility] and has a question on directions Cover sheet looks like series orders needed but on actual orders not indicated there and need to know frequency and duration Please call Matti back documented in this encounter Plan of Treatment Upcoming Encounters Date Type Department Care Team (Late st Contact Info) Description 04/02/2024 10:30 EDT Appointment [facility] Interventional Radiology Unit [address] [place] [address] [phone] 04/02/2024 15:15 EDT Office Visit [facility] Surgical Oncology - [address] [phone] Adolfo Carreno MD [address] [facility], Level [address] [place] [phone] 04/05/2024 9:30 EDT Telemedicine Health system - [facility] Palliative Care Services [address] [place] [address] [phone] Chichi Woods MD [address] [facility], [address] [phone] 04/11/2024 15:00 EDT Telemedicine [facility] Hematology & Oncology - [address] [phone] Alisson Carreon MD [address] [place] [address] 2 [place] [phone] 04/13/2024 13:30 EDT Appointment [facility] Hematology & Oncology - [address] [phone] 04/13/2024 14:00 EDT Appointment [facility] Hematology & Oncology - [address] [phone] 04/16/2024 10:00 EST Telemedicine Health system - [facility] Palliative Care Services [address] [place] [address] [phone] Chichi Woods MD [address] [place] [address], [address] [phone] 04/24/2024 9:00 EST Appointment [facility] Radiology CT Outpatient - [address] [id number] 04/24/2024 11:00 EST Appointment [facility] Breast Imaging - [address] [phone] 04/27/2024 12:00 EST Appointment [facility] Hematology & Oncology - [address] [phone] 05/02/2024 15:00 EST Telemedicine [facility] Hematology & Oncology - [address] [phone] Alisson Carreon MD [address] [place] [address], [facility] [address] [place] [phone] 05/04/2024 10:15 EST Ancillary Procedure [facility] Cardiology [place] [place] [address] 05/04/2024 11:30 EST Appointment [facility] Hematology & Oncology [address] [address] 05/04/2024 12:00 EST Appointment [facility] Hematology & Oncology [address] [address] 06/12/2024 13:00 EST Appointment [facility] Radiology CT - [address] [address] documented as of this encounter Visit Diagnoses Diagnosis Metastatic breast cancer- Primary documented in this encounter Care Teams Manager Program Relationship Specialty Start Date End Date Linda Blancas MD [facility] [address] [place] [address] PCP - General 01/06/11 documented as of this encounter
--- OUTSIDE RECORDS SUMMARY | 2024-03-20 15:02 | XMS_ITS | Encounter Summary ---
Author Organization [facility] Address [address] [place] [address] Care Team Providers Care Circulation Crew Leader Name Role Phone Linda Blancas MD Primary Care Provider [phone] Adolfo Carreno MD Unavailable [phone] Augustina Colin MD PhD Unavailable Unavailable Reason for Referral * Radiology Services (Routine) - Closed Specialty Diagnoses / Procedures Referred By Doug t Referred To Contact Diagnoses Metastatic breast cancer Procedures CT CHEST W CONTRAST Augustina Colin MD PhD Referral ID Status Reason Start Date Expiration Date Visits Re quested Visits Authorized [id number] Closed 05/08/2019 07/06/2019 1 1 Reason for Visit * Radiology Services (Routine) - Closed Specialty Diagnoses / Procedures Referred By Doug hearn Referred To Contact Diagnoses Metastatic breast cancer Procedures CT CHEST W CONTRAST Augustina Colin MD PhD Referral ID Status Reason Start Date Expiration Date Visits Re quested Visits Authorized [id number] Closed 05/08/2019 07/06/2019 1 1 Encounter Details Date Type Department Care Team (Latest Contact Info) Description 05/17/2019 10:33 EST - 05/17/2019 23:59 EST [facility] Radiology [facility] - Main [place] [address] [place], [place] [id number] Metastatic breast cancer (HCC-CMS) Discharge Disposition: Home [...] DAILY 90 Tab 3 01/15/2019 01/10/2020 mv-mn/C/glutamin/lysin/ [id number] (AIRBORNE, ASCORBATE SODIUM, ORAL) Take by mouth [...] Appointment [facility] Interventional Radiology Unit [address] [place] [address] [phone] 04/02/2024 15:15 EDT Office Visit [facility] Surgical Oncology - [address] [phone] Adolfo Carreno MD 111 [facility], Level 2 [place] [phone] 04/05/2024 9:30 EDT Telemedicine [facility] - [facility] Palliative Care Services [address], [place] [phone] Chichi Woods MD 111 [facility], [address] [phone] 04/11/2024 15:[address] [facility] Hematology & Oncology - Main [address] [phone] Alisson Carreon MD [address] [place] [address] 2 [place] [phone] 04/13/2024 13:[address] [facility] Hematology & Oncology - [address] [phone] 04/13/2024 14:[address] [facility] Hematology & Oncology - [address] [phone] 04/16/2024 10:00 EST Telemedicine [facility] - [facility] Palliative Care Services [address] [place] [address] [phone] Chichi Woods MD [address] [place] [address] [phone] 04/24/2024 9:00 EST Appointment [facility] Radiology CT Outpatient - [address] [phone] 04/24/2024 11:00 EST Appointment [facility] Breast Imaging - [facility] [address] [id number] 04/27/2024 12:[address] [facility] Hematology & Oncology - [address] [phone] 05/02/2024 15:[address] [facility] Hematology & Oncology - [address] [phone] Alisson Carreon MD [address] [place] [address], [facility] 2 [place] [phone] 05/04/2024 10:15 EST Ancillary Procedure [facility] Cardiology - [address] [place], [place] [phone] 05/04/2024 11:[address] [facility] Hematology & Oncology - [address] [address] 05/04/2024 12:[address] [facility] Hematology & Oncology [address] [address] 06/12/2024 13:00 EST Appointment [facility] Center Radiology CT - [address] [address] documented as of this encounter Procedures Procedure Name Priority Date/Time Associated Diagnosis Comments CT CHEST W CONTRAST Routine 05/17/2019 1 1:09 EST Metastatic breast cancer (HCC-CMS) documented in this encounter Results * CT CHEST W CONTRAST (05/17/2019 11:09 EST) Anatomical Region Laterality Modality Chest Computed Tomogra phy 05/17/2019 13:1 8 EST Impressions 05/17/2019 13:18 EST 1. ??No definite metastatic lesions in the chest. 2. ??Left breast prosthesis and right breast tissue interior design project manager. 3. ??Stable small nodules within the left [...] tissues: Left breast prosthesis. Right breast tissue interior design project manager. Mediastinum and mariann: Stable borderline to mildly [...] during the intravenous administration of 70-100 cc [id number] mg% nonionic contrast injected at a rate [...] Left breast prosthesis and right breast tissue interior design project manager. 3. Stable small nodules within the left [...] MAR Action Action Date Dose Rate Site iohexol (OMNIPAQUE 350) solution 100 mL 100 mL, intravenous, Once in imaging, 1 dose, Starting on Michelle 05/17/19 at 1053, Until Michelle 05/17/19 at 1107, Routine, Imaging Protocol Orders Given 05/17/2019 11:07 EST 57 mL IV documented in this encounter Care Teams Circulation Crew Leader Relationship Specialty Start Date End Date Linda Blancas MD [facility] [address] [place] [address] PCP - General 01/06/11 Adolfo Carreno MD [address] [place] [phone] General Surgery 04/26/19 Augustina Colin MD PhD [address] [place] [phone] Medical Oncology 04/26/19 documented as of this encounter
--- OUTSIDE RECORDS SUMMARY | 2024-03-20 15:02 | XMS_ITS | Encounter Summary ---
Author Organization [facility] Address [address] [place] [address] Care Team Providers Care Artificial Teeth Inspector Name Role Phone Linda Blancas MD Primary Care Provider [phone] Adolfo Carreno MD Unavailable [phone] Augustina Colin MD PhD Unavailable Unavailable Reason for Visit * Reason Onset Date Comments Orders (Non Pre-visit) 05/15/2019 would lik e a script for a monthly massage so she can use her flexible spending account Encounter Details Date Type Department Care Team (Late st Contact Info) Description 05/15/2019 Telephone [facility] Hematology & Oncology - [address] [address] Augustina Colin MD PhD Orders (Non Pre-visit) (would like a script for a monthly massage so she can use her flexible spending account) Social History Tobacco Use Types Packs/Day Years [...] Telephone Encounter - Quita Rob RN - 05/15/2019 1432 EST Called and reassured Ms Morales Dr Colin is agreeable to write a prescription for her massage. Pt is coming to clinic next week and will discuss in more detail with Dr Colin. * Telephone Encounter - Bryan Arambula - 05/15/2019 1012 EST Patient is calling checking to see if Dr. Colin will be able to write a script so patient can havea monthly massage. PCP has done this in the past but she was hoping Dr. Colin could do this for her since she is a Stage v cancer. She wants to make sure this is something that can be done. Please call patient to discuss so she knows before she comes in next week. She is putting money in her Flexible spending account. documented in this encounter Plan of Treatment Upcoming Encounters Date Type Department Care Team (Late st Contact Info) Description 04/02/2024 10:30 EDT Appointment [facility] Interventional Radiology Unit [address] [place] [address] [phone] 04/02/2024 15:15 EDT Office Visit [facility] Surgical Oncology - [facility] [address] [place] [address] Adolfo Carreno MD 111 [facility], Level [address] [place] [phone] 04/05/2024 9:30 EDT Telemedicine [facility] - [facility] Palliative Care Services [address] [place] [address] [phone] Chichi Woods MD [address] [place] [phone] 04/11/2024 15:00 EDT Telemedicine [facility] Hematology & Oncology - [address] [phone] Alisson Carreon MD [address] [place] [address] [address] [place] [phone] 04/13/2024 13:30 EDT Appointment [facility] Hematology & Oncology - [address] [address] 04/13/2024 14:00 EDT Appointment [facility] Hematology & Oncology [address] [address] 04/16/2024 10:00 EST Telemedicine [facility] Palliative Care Services [address] [place] [address] [phone] Chichi Woods MD [address] [place] [address] [phone] 04/24/2024 9:00 EST Appointment [facility] Radiology CT Outpatient - [address] [phone] 04/24/2024 11:00 EST Appointment [facility] Breast Imaging - [address] [address] 04/27/2024 12:00 EST Appointment [facility] Hematology & Oncology - [address] [phone] 05/02/2024 15:00 EST Telemedicine [facility] Hematology & Oncology [address] [phone] Alisson Carreon MD [address] [place] [phone] 05/04/2024 10:15 EST Ancillary Procedure [facility] Cardiology - [address] [place] [address] 05/04/2024 11:30 EST Appointment [facility] Hematology & Oncology [address] [phone] 05/04/2024 12:00 EST Appointment [facility] Hematology & Oncology [address] [phone] 06/12/2024 13:00 EST Appointment [facility] Radiology CT - [address] [phone] documented as of this encounter Visit Diagnoses Not on filedocumented in this encounter Care Teams Artificial Teeth Inspector Relationship Specialty Start Date End Date Linda Blancas MD [address] [place] [address] PCP - General 01/06/11 Adolfo Carreno MD [address] [place] [phone] General Surgery 04/26/19 Augustina Colin MD PhD [address] [place] [phone] Medical Oncology 04/26/19 documented as of this encounter
--- OUTSIDE RECORDS SUMMARY | 2024-03-20 15:02 | XMS_ITS | Encounter Summary ---
Author Organization [facility] Address [address] [place] [address] Care Team Providers Care Supervisor Mending Name Role Phone Linda Blancas MD Primary Care Provider [phone] Reason for Visit * Reason Comments Annual Exam Encounter Details Date Type Department Care Team (Late st Contact Info) Description 04/06/2019 10:00 EDT Office Visit [facility] Gynecologic Oncology [address] [address] Quita Babb PA-C 111 [facility], [facility] 2 [place] [phone] Encounter for gynecological examination without abnormal finding (Primary Dx); Encounter for gynecological examination with abnormal finding Social History Tobacco Use Types Packs/Day Years [...] Sign Reading Time Taken Comments Blood Pressure 112/62 04/06/2019 1031 EDT Pulse - - Temperature - - Respiratory Rate - - Oxygen Saturation - - Inhaled Oxygen Concentration - - Weight 61.6 kg (135 lb 12.9 oz) 04/06/2019 1031 EDT Height - - Body Mass Index 25.12 03/22/2019 1145 EDT documented in this encounter [...] this encounter Progress Notes * Quita Babb PA - 04/06/2019 1000 EDT Subjective: Patient ID: Sunshine Pleitez is an 58 y.o. female. Chief Complaint Patient presents with ??? Annual Exam HPI Chief complaint: Annual gynecologic exam HPI: Sunshine Pleitez is a 58 y.o. woman who presents today for a yearly exam, last seen 01/20/18 for an annual hall monitor exam. Sendy continues to undergo treatment for [...] or menopausal symptoms, she is overall doing well. She also began having abnormal pap smears [...] and negative HPV) as well as 12/2014, NIL and negative HPV. Post menopausal, no vaginal bleeding Using NA for contraception. Last pap smear: 12/2014 (NIL, neg HR HPV). History of STDs: HSV, on valtrex suppression Currently at risk or concerns of STD: no, stable relationship Vaginal complaints: She does note that she has had some post coital spotting. Admits that she is rarely sexually active, as her is a little out of shape, and has hip pain, and she feels this is likely due to dryness, but she does not have significant dyspareunia. Bladder complaints: none Bowel complaints: none Other complaints: none Other concerns: none Hot flashes better than in the past. Health Maintenance Mammogram: As above, s/p bilateral mastectomies, and undergoing tx for recurrent breast cancer. Colonoscopy: utd Cholesterol screening: utd through her pcp TRICE: followed by medical oncology Immunizations: Tetanus: utd [...] breast (HCC-CMS) ??? Encounter for palliative care Past Medical History: Diagnosis Date ??? Allergy ??? Arthritis ??? Back pain ??? 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 Environmental allergies ??? Hearing loss ??? Numbness ??? Wears glasses Past Surgical History: Procedure Laterality Date ??? BACK SURGERY December 2011 L3 - S1 spinal decompression and fusion ??? BREAST RECONSTRUCTION 01/30/2004 subpectoral implant ??? BREAST SURGERY 01/30/2004 Right mastectomy ??? CARPAL TUNNEL RELEASE 2007 ??? LIPOMA RESECTION 2000 Family History Problem Relation Age of Onset ??? Cancer Father bladder ??? Cancer Brother 59 esophageal ??? Cancer Maternal Uncle bladder ??? Breast Cancer Paternal Aunt 35 Social Social History Tobacco Use ??? Smoking [...] Pain. Daily Max: 12 mg 15 tablet 0 ??? letrozole (FEMARA) 2.5 mg tablet TAKE 1 TABLET DAILY 90 Tab 3 ??? MULTIVITS W-CA,FE,OTHER MIN (WOMEN'S DAILY FORMULA ORAL) Take by mouth daily. ??? mv-mn/C/glutamin/lysin/gynt221 (AIRBORNE, ASCORBATE SODIUM, ORAL) Take by mouth. [...] Psychiatric/Behavioral: Negative. - See HPI Objective: BP 112/62 Wt 61.6 kg (135 lb 12.9 oz) BMI 25.12 kg/m?? Physical Exam Constitutional: She is oriented [...] She exhibits no distension. There is no tenderness. Thereis no rebound. Genitourinary: Vagina normal and uterus normal. There is no rash, tenderness, lesion or injury on the right labia. There is no rash, tenderness, lesion or injury on the left labia. No vaginal erythema, tenderness or bleeding. No signs of injury around the vagina. No vaginal discharge found. Right adnexum displays no mass, no tenderness and no fullness. Left adnexum displays no mass, no tendernessand no fullness. Cervix exhibits no motion tenderness, no discharge and no friability. Uterus is not deviated, not enlarged, not fixed and not tender. Vagina with evidence of atrophy. Cervix friable due to atrophy. Musculoskeletal: Normal range of motion. Lymphadenopathy: She has no cervical adenopathy. She has no axillary adenopathy. Neurological: She is alert and oriented to person, place, and time. Skin: Skin is warm and dry. No erythema. No pallor. Psychiatric: She has a normal mood and affect. Her behavior is normal. Judgment and thought contentnormal. Assessment: Annual hall monitor exam with pap. Plan: Sunshine was seen today for annual exam. Diagnoses and all orders for this visit: Encounter for gynecological examination without abnormal finding Pap with HPV regardless, if NIL, negative, repeat in 5 years. Discussed vaginal moisturizers, such as replens to help with vaginal dryness. Ongoing follow up with medical oncology for treatment of metastatic breast cancer. Calcium, vitamin D for bone density protection. Return to office in 1 year, sooner PRN. TANK Fleipe documented in this encounter Plan of Treatment Upcoming Encounters Date Type Department Care Team (Late st Contact Info) Description 04/02/2024 10:30 EDT Appointment [facility] Interventional Radiology Unit [address] [place] [address] [phone] 04/02/2024 15:15 EDT Office Visit [facility] Surgical Oncology - [address] [phone] Adolfo Carreno MD [address] [place] [phone] 04/05/2024 9:30 EDT Telemedicine [facility] Palliative Care Services [address] [place] [address] [phone] Chichi Woods MD [address] [place] [phone] 04/11/2024 15:00 EDT Telemedicine [facility] Hematology & Oncology [address] 677251 Alisson Carreon MD [address] [place] [phone] 04/13/2024 13:30 EDT Appointment [facility] Hematology & Oncology [address] [phone] 04/13/2024 14:00 EDT Appointment [facility] Hematology & Oncology [address] [phone] 04/16/2024 10:00 EST Telemedicine [facility] Palliative Care Services [address], [place] 615461 Chichi Woods MD 111 [facility], [address] [phone] 04/24/2024 9:00 EST Appointment [facility] Radiology CT Outpatient - [address] [phone] 04/24/2024 11:00 EST Appointment [facility] Breast Imaging - [facility] 1 [place], [place] 305521 04/27/2024 12:00 EST Appointment [facility] Hematology & Oncology - [address] [phone] 05/02/2024 15:00 EST Telemedicine [facility] Hematology & Oncology - [address] [phone] Alisson Carreon MD [address] [place] [address], Level [address] [place] [phone] 05/04/2024 10:15 EST Ancillary Procedure [facility] Cardiology - [place] [address] 05/04/2024 11:30 EST Appointment [facility] Hematology & Oncology - [address] [phone] 05/04/2024 12:00 EST Appointment [facility] Hematology & Oncology - [address] [phone] 06/12/2024 13:00 EST Appointment [facility] Radiology CT - [address] [phone] documented as of this encounter Visit Diagnoses Diagnosis Encounter for gynecological examination without abnormal finding- Primary Routine gynecological examination Encounter for gynecological examination with abnormal finding Routine gynecological examination documented in this encounter Care Teams Supervisor Mending Relationship Specialty Start Date End Date Linda Blancas MD [address] [place] [address] PCP - General 01/06/11 documented as of this encounter
--- OUTSIDE RECORDS SUMMARY | 2024-03-20 15:02 | XMS_ITS | Encounter Summary ---
Author Organization [facility] Address [address] [place] [address] Care Team Providers Care Surgical Garment Assembler Name Role Phone Linda Blancas MD Primary Care Provider [phone] Encounter Details Date Type Department Care Team (Late st Contact Info) Description 03/16/2019 Phlebotomy Only [address] [address] Sales And Leasing Consultant, Outpatient Metastatic breast cancer (HCC-CMS) (Primary Dx) Social [...] EDT Appointment [facility] Inter[facility] Radiology Unit [address] [place] [address] [phone] 04/02/2024 15:15 EDT Office Visit [facility] Surgical Oncology - [address] [phone] Adolfo Carreno MD [address] [place] [address] [phone] 04/05/2024 9:30 EDT Telemedicine [facility] Palliative Care Services [address] [place] [address] [phone] Chichi Woods MD [address] [place] [address] [phone] 04/11/2024 15:00 EDT Telemedicine [facility] Hematology & Oncology [address] 680451 Alisson Carreon MD [address] [place] [address] [phone] 04/13/2024 13:30 EDT Appointment [facility] Hematology & Oncology [address] 244341 04/13/2024 14:00 EDT Appointment [facility] Hematology & Oncology [address] [phone] 04/16/2024 10:00 EST Telemedicine [facility] Palliative Care Services [address] [place] [address] 454371 Chichi Woods MD [address] [place] [address] [address] [place] [phone] 04/24/2024 9:00 EST [facility]ointment [facility] Rad[facility] CT Outpatient - [address] [phone] 04/24/2024 11:00 EST Appointment [facility] Breast Imaging - [facility] [address] [place] [address] [place], [place] [phone] 04/27/2024 12:00 EST Appointment [facility] Hematology & Oncology - [address] [phone] 05/02/2024 15:00 EST Telemedicine [facility] Hematology & Oncology - [address] [phone] Alisson Carreon MD [address] [place] [address], Level [address] [place] [phone] 05/04/2024 10:15 EST Ancillary Procedure [facility] Cardiology - [address] [place] [address] 05/04/2024 11:30 EST Appointment [facility] Hematology & Oncology - [address] [phone] 05/04/2024 12:00 EST Appointment [facility] Hematology & Oncology - [address] [phone] 06/12/2024 13:00 EST Appointment [facility] Radiology CT - [address] [phone] documented as of this encounter Procedures Procedure Name Priority Date/Time Associated Diagnosis Comments COMPREHENSIVE METABOLIC PANEL (ONCOLOGY USE ONLY-INC MG) STAT 05/17/2019 11:45 EST Metastatic breast cancer (HCC-CMS) COMPLETE BLOOD COUNT AND DIFFERENTIAL STAT 05/17/2019 11:45 EST Metastatic breast cancer (HCC-CMS) COMPREHENSIVE METABOLIC PANEL (ONCOLOGY USE ONLY-INC MG) STAT 03/16/2019 11:51 EDT Metastatic breast cancer (HCC-CMS) CA 27.29 Routine 03/16/2019 11:51 EDT Metastatic breast cancer (HCC-CMS) COMPLETE BLOOD COUNT AND DIFFERENTIAL STAT 03/16/2019 11:51 EDT Metastatic breast cancer (HCC-CMS) documented in this encounter Results * COMPLETE BLOOD COUNT AND DIFFERENTIAL (05/17/2019 11:45 EST) WBC 5.90 4.00 - 12.40 K/cmm 05/17/2019 12:10 [facility] RBC 4.19 3.86 - 5.04 M/cmm 05/17/2019 12:10 [facility] Hemoglobin 13.5 11.6 - 15.2 gm/dL 05/17/2019 12:10 [facility] HCT 40.7 34.9 - 44.4 % 05/17/2019 12:10 [facility] MCV 97 81 - 98 fl 05/17/2019 12:10 [facility] MCH 32.2 26.7 - 33.3 pg 05/17/2019 12:10 [facility] MCHC 33.2 32.1 - 35.9 gm/dL 05/17/2019 12:10 [facility] RDW-CV 11.9 <14.7 % 05/17/2019 12:10 [facility] RDW-SD 42.3 <50.4 fl 05/17/2019 12:10 [facility] PLT 231 141 - 377 K/cmm 05/17/2019 12:10 [facility] MPV 10.2 9.5 - 12.7 fl 05/17/2019 12:10 [facility] % Neutrophils 49.5 % 05/17/2019 12:10 [facility] % Lymphocytes 40.2 % 05/17/2019 12:10 [facility] % Monocytes 7.5 % 05/17/2019 12:10 [facility] % Eosinophils 1.9 % 05/17/2019 12:10 [facility] % Basophils 0.7 % 05/17/2019 12:10 [facility] % Immature Grans 0.2 % 05/17/20 19 12:10 [facility] Absolute Neutrophils 2.93 2.20 - 8.85 K/cmm 05/17/2019 12:10 [facility] Absolute Lymphocytes 2.37 1.09 - 3.30 K/cmm 05/17/2019 12:10 [facility] Absolute Monocytes 0.44 0.10 - 0.80 K/cmm 05/17/2019 12:10 [facility] Absolute Eosinophils 0.11 0.03 - 0.61 K/cmm 05/17/2019 12:10 [facility] ABS Basophils 0.04 0.01 - 0.11 K/cmm 05/17/2019 12:10 [facility] Absolute Immature Grans 0.01 0.00 - 0.06 K/cmm 05/17/2019 12:10 [facility] Type of Differential: Auto 05/17/2019 12:10 [facility] Blood 05/17/2019 11:4 5 EST 05/17/2019 11:56 EST Augustina Colin MD PhD PACKAGES & DNA PROBE ORDERABLES Performing Organization Address City/State/[facility] Co de Phone Number [facility] [address] [place] [address] * COMPREHENSIVE METABOLIC PANEL (ONCOLOGY USE ONLY-INC MG) (05/17/2019 11:45 EST) Sodium 138 136 - 145 mEq/L 05/17/2019 12:15 [facility] Potassium 4.6 3.5 - 5.0 mEq/L 05/17/2019 12:15 [facility] Chloride 101 96 - 110 mEq/L 05/17/2019 12:15 [facility] CO2 Total 31 22 - 32 mEq/L 05/17/2019 12:15 [facility] Glucose 85 70 - 100 mg/dL 05/17/2019 12:15 [facility] BUN 16 10 - 26 mg/dL 05/17/2019 12:15 [facility] Creatinine 0.71 0.52 - 1.04 mg/dL 05/17/2019 12:15 [facility] eGFR 95 >60 mL/min/1.7 3m2 05/17/2019 12:15 [facility] Comment:eGFR calculated usin g CKD-EPI equation for non- Americans. Multiply eGFR by 1.16 for patients. Total Protein 7.0 6.3 - 8.2 g/dL 05/17/2019 12:15 [facility] Albumin 4.2 3.4 - 4.9 g/dL 05/17/2019 12:15 [facility] Alkaline Phosphatase 85 38 - 126 U/L 05/17/2019 12:15 [facility] AST 34 15 - 46 U/L 05/17/2019 12:15 [facility] ALT 28 <35 U/L 05/17/2019 12:15 [facility] Bilirubin, Total 0.6 <1.4 mg/dL 05/17/20 19 12:15 [facility] Calcium 9.9 8.5 - 10.5 mg/dL 05/17/2019 12:15 [facility] Calculated Calcium 9.7 8.5 - 10.5 mg/dL 05/17/2019 12:15 [facility] Magnesium 2.0 1.7 - 2.8 mg/dL 05/17/2019 12:15 [facility] Blood 05/17/2019 11:4 5 EST 05/17/2019 11:56 EST Augustina Colin MD PhD CHEMISTRY & BLOOD GA S ORDERABLES [facility] [address] [place] [address] * COMPLETE BLOOD COUNT AND DIFFERENTIAL (03/16/2019 11:51 EDT) WBC 5.76 4.0 - 12.4 K/cmm 03/16/2019 12:11 [facility] RBC 4.21 3.86 - 5.04 M/cmm 03/16/2019 12:11 [facility] Hemoglobin 13.8 11.6 - 15.2 gm/dl 03/16/2019 12:11 [facility] HCT 41.3 34.9 - 44.4 % 03/16/2019 12:11 [facility] MCV 98 81 - 98 fl 03/16/2019 12:11 [facility] MCH 32.8 26.7 - 33.3 pg 03/16/2019 12:11 [facility] MCHC 33.4 32.1 - 35.9 gm/dl 03/16/2019 12:11 [facility] RDW-CV 12.4 <14.7 % 03/16/2019 12:11 [facility] RDW-SD 44.4 <50.4 fl 03/16/2019 12:11 [facility] PLT 246 141 - 377 K/cmm 03/16/2019 12:11 [facility] MPV 10.3 9.5 - 12.7 fl 03/16/2019 12:11 [facility] % Neutrophils 49.5 % 03/16/2019 12:11 [facility] % Lymphocytes 38.5 % 03/16/2019 12:11 [facility] % Monocytes 8.7 % 03/16/2019 12:11 [facility] % Eosinophils 2.1 % 03/16/2019 12:11 [facility] % Basophils 1.0 % 03/16/2019 12:11 [facility] % Immature Grans 0.2 % 03/16/2019 12:11 [facility] ABS Neutrophils 2.85 2.20 - 8.85 K/cmm 03/16/2019 12:11 [facility] ABS Lymphs 2.22 1.09 - 3.30 K/cmm 03/16/2019 12:11 [facility] ABS Monocytes 0.50 0.1 - 0.8 K/cmm 03/16/2019 12:11 [facility] ABS Eosinophils 0.12 0.03 - 0.61 K/cmm 03/16/2019 12:11 [facility] ABS Basophils 0.06 0.01 - 0.11 K/cmm 03/16/2019 12:11 [facility] ABS Immature Grans 0.01 0 - 0.06 K/cmm 03/16/2019 12:11 [facility] Type of Diff: Automated 03/16/2019 12:11 [facility] Blood specimen (specimen) BLOOD SPECIMEN / Unknown 03/16/2019 11:51 EDT 03/16/2019 11:57 EDT Augustina Colin MD PhD PACKAGES & DNA PROBE ORDERABLES Performing Organization Address City/State/[facility] Co de Phone Number [facility] [address] [place] [address] * (ABNORMAL) COMPREHENSIVE METABOLIC PANEL (ONCOLOGY USE ONLY-INC MG) (03/16/2019 11:51 EDT) Potassium 4.4 3.5 - 5.0 mEq/L 03/16/2019 12:17 [facility] Sodium 142 136 - 145 mEq/L 03/16/2019 12:17 [facility] Chloride 104 96 - 110 mEq/L 03/16/2019 12:17 [facility] CO2 28 22 - 32 mEq/L 03/16/2019 12:17 [facility] Total Alkaline Phosphatase 72 38 - 126 U/L 03/16/2019 12:17 [facility] Bilirubin, Total <0.5 <1.4 mg/dl 03/16/20 19 12:17 [facility] AST 38 15 - 46 U/L 03/16/2019 12:17 [facility] ALT 23 <34 U/L 03/16/2019 12:17 [facility] Albumin 4.3 3.4 - 4.9 g/dl 03/16/2019 12:17 [facility] Total Protein 7.0 6.3 - 8.2 g/dl 03/16/2019 12:17 [facility] Creatinine 0.80 0.52 - 1.04 mg/dl 03/16/2019 12:17 [facility] GFR, Calculated 82 >60 ml/min/1.7 3m2 03/16/2019 12:17 [facility] Comment: eGFR calculated using CKD-EPI equation for non Americans. Multiply eGFR by 1.16 for Americans. BUN 20 10 - 26 mg/dl 03/16/2019 12:17 [facility] Calcium 9.9 8.5 - 10.5 mg/dl 03/16/2019 12:17 [facility] Calculated Calcium 9.7 8.5 - 10.5 mg/dl 03/16/2019 12:17 [facility] Glucose, Serum 112(H) 70 - 100 mg/dl 03/16/2019 12:17 [facility] Magnesium 2.0 1.7 - 2.8 mg/dl 03/16/2019 12:17 [facility] Blood specimen (specimen) BLOOD SPECIMEN / Unknown 03/16/2019 11:51 EDT 03/16/2019 11:57 EDT Augustina Colin MD PhD CHEMISTRY & BLOOD GA S ORDERABLES [facility] [address] [place] [address] * CA 27.29 (03/16/2019 11:51 EDT) CA 27.29 31.1 <38 U/mL 03/16/2019 13:43 [facility] Comment: Serum CA 27.29 concentration should not be interpreted as absolute evidence for the presence or absence of malignant disease. Assayed utilizing [employer] ([employer]) chemiluminescent technology. ??Values obtained by using different assay methods cannot be used interchangeably. Blood specimen (specimen) BLOOD SPECIMEN / Unknown 03/16/2019 11:51 EDT 03/16/2019 11:57 EDT Augustina Colin MD PhD CHEMISTRY & BLOOD GA S ORDERABLES [facility] [address] [place] [address] documented in this encounter Visit Diagnoses Diagnosis Metastatic breast cancer- Primary documented in this encounter Care Teams Surgical Garment Assembler Relationship Specialty Start Date End Date Linda Blancas MD [facility] [address] [place] [address] PCP - General 01/06/11 documented as of this encounter
--- OUTSIDE RECORDS SUMMARY | 2024-03-20 15:02 | XMS_ITS | Encounter Summary ---
Author Organization [facility] Address [address] [place] [address] Care Team Providers Care Water Main Inspector Name Role Phone Linda Blancas MD Primary Care Provider [phone] Adolfo Carreno MD Unavailable [phone] Augustina Colin MD PhD Unavailable Unavailable Reason for Visit * Reason Onset Date Comments Results 05/18/2019 Encounter Details Date Type Department Care Team (Late st Contact Info) Description 05/18/2019 Telephone [facility] Hematology & Oncology - [place] [address] [place], [place] [id number] Quita Rob, SHELLEY Results Social History Tobacco Use Types [...] Telephone Encounter - Quita Rob RN - 05/18/2019 1001 EST Called and notified pt results of Ct scan. Pt inquired about her Ca27.29 and she was made aware theresults are in process. Pt will keep scheduled appt for next week. documented in this encounter Plan of Treatment Upcoming Encounters Date Type Department Care Team (Late st Contact Info) Description 04/02/2024 10:30 EDT Appointment [facility] Interventional Radiology Unit [address] [place] [address] 04/02/2024 15:15 EDT Office Visit [facility] Surgical Oncology - [place] [phone] Adolfo Carreno MD [address] [place] [address] [address] [place] [phone] 04/05/2024 9:30 EDT Telemedicine [facility] - [facility] Palliative Care Services [address] [place] [address] Chichi Woods MD [address] [place] [address], [address] [phone] 04/11/2024 15:00 EDT Telemedicine [facility] Hematology & Oncology - [address] [phone] Alisson Carreon MD [address] [place] [address], [facility] [address] [place] [phone] 04/13/2024 13:30 EDT Appointment [facility] Hematology & Oncology - [address] [address] 04/13/2024 14:00 EDT Appointment [facility] Hematology & Oncology [address] [address] 04/16/2024 10:00 EST Telemedicine [facility] - [facility] Palliative Care Services [address] [place] [address] [id number] Chichi Woods MD [address] [place] [address], [address] [phone] 04/24/2024 9:00 EST Appointment [facility] Radiology CT Outpatient - [address] [phone] 04/24/2024 11:00 EST Appointment [facility] Breast Imaging - [facility] [address] [place] [address] [place], [place] [phone] 04/27/2024 12:00 EST Appointment [facility] Hematology & Oncology - [address] [phone] 05/02/2024 15:00 EST Telemedicine [facility] Hematology & Oncology [address] [phone] Alisson Carreon MD [address] [place] [address], [facility], Level [address] [place] [phone] 05/04/2024 10:15 EST Ancillary Procedure [facility] Cardiology - [place] [address] 05/04/2024 11:30 EST Appointment [facility] Hematology & Oncology - [address] 342201 05/04/2024 12:00 EST Appointment [facility] Hematology & Oncology - [address] [phone] 06/12/2024 13:00 EST Appointment [facility] Radiology CT - [address] [phone] documented as of this encounter Visit Diagnoses Not on filedocumented in this encounter Care Teams Water Main Inspector Relationship Specialty Start Date End Date Linda Blancas MD [facility] [address] [place], [place] [address] PCP - General 01/06/11 Adolfo Carreno MD [address] [place] [address] [phone] General Surgery 04/26/19 Augustina Colin MD PhD [address] [place] [address] 2 [place] [phone] Medical Oncology 04/26/19 documented as of this encounter
--- OUTSIDE RECORDS SUMMARY | 2024-03-20 15:02 | XMS_ITS | Encounter Summary ---
Author Organization [facility] Address [address] [place] [address] Care Team Providers Care Product Development Ecologist Name Role Phone Linda Blancas MD Primary Care Provider [phone] Adolfo Carreno MD Unavailable [phone] Augustina Colin MD PhD Unavailable Unavailable Reason for Visit * Laboratory Services (Routine) - Order Cancelled Specialty Diagnoses / Procedures Referred By Doug hearn Referred To Contact Diagnoses Metastatic breast cancer Procedures COMPLETE BLOOD COUNT AND DIFFERENTIAL Augustina Colin MD PhD Referral ID Status Reason Start Date Expiration Date V isits Requested Visits Authorized [id number] Order Cancelled 03/13/2019 1 1 Encounter Details Date Type Department Care Team (Late st Contact Info) Description 05/17/2019 11:30 EST Phlebotomy Only [facility] ED Center 2 Phlebotomy [address] [place], [place] [id number] Academic Affairs Director, Acc Phlebotomy Metastatic breast cancer (HCC-CMS) (Primary [...] Appointment [facility] Interventional Radiology Unit [address] [place] [address] [phone] 04/02/2024 15:15 EDT Office Visit [facility] Surgical Oncology - [address] 598011 Adolfo Carreno MD [address] [place] [address] [phone] 04/05/2024 9:30 EDT Telemedicine [facility] - [facility] Palliative Care Services [address] [place] [address] [phone] Chichi Woods MD [address] [place] [address] [phone] 04/11/2024 15:00 EDT Telemedicine [facility] Hematology & Oncology [address] [phone] Alisson Carreon MD [address] [place] [address] [phone] 04/13/2024 13:30 EDT Appointment [facility] Hematology & Oncology [address] 401391 04/13/2024 14:00 EDT Appointment [facility] Hematology & Oncology - [address] [address] 04/16/2024 10:00 EST Telemedicine [facility] - [facility] Palliative Care Services [address] [place] [address] 50[address] Chichi Woods MD [address] [place] [address], [address] [phone] 04/24/2024 9:00 EST Appointment [facility] Radiology CT Outpatient - [address] [address] 04/24/2024 11:00 EST Appointment [facility] Breast Imaging - [facility] [address] [place], [place] 530611 04/27/2024 12:00 EST Appointment [facility] Hematology & Oncology - [address] 433891 05/02/2024 15:00 EST Telemedicine [facility] Hematology & Oncology [address] 878901 Alisson Carreon MD [address] [place] [address], [facility], Level 2 [place] [phone] 05/04/2024 10:15 EST Ancillary Procedure [facility] Cardiology [place] [address] 05/04/2024 11:30 EST Appointment [facility] Hematology & Oncology - [address] [address] 05/04/2024 12:00 EST Appointment [facility] Hematology & Oncology - [address] 508771 06/12/2024 13:00 EST [facility]ment [facility] Rad[facility] - [facility] [address] [place] [address] documented as of this encounter Procedures Procedure Name Priority Date/Time Associated Diagnosis Comments CA 27.29 Routine 05/17/2019 11:45 EST Metastatic breast cancer (HCC-CMS) COMPREHENSIVE METABOLIC PANEL (CMP) Routine 05/17/2019 11:45 EST Metastatic breast cancer (HCC-CMS) documented in this encounter Results * CA 27.29 (05/17/2019 11:45 EST) CA 27.29 28.3 <38.0 U/mL 05/18/2019 11:34 [facility] Comment: NOTE: Serum CA 27.29 concentration should not be interpreted as absolute evidence for the presence or absence of malignant disease. Assayed on Siemens ADVIA Burst.itaur XPT using chemiluminescent technology. ??Values obtained by using different assay methods cannot be used interchangeably. Blood 05/17/2019 11:4 5 EST 05/17/2019 11:56 EST Augustina Colin MD PhD CHEMISTRY & BLOOD GA S ORDERABLES [facility] [address] [place] [address] * COMPREHENSIVE METABOLIC PANEL (CMP) (05/17/2019 11:45 EST) Sodium 138 136 - 145 mEq/L 05/17/2019 12:15 [facility] Potassium 4.6 3.5 - 5.0 mEq/L 05/17/2019 12:15 [facility] Chloride 101 96 - 110 mEq/L 05/17/2019 12:15 [facility] CO2 Total 31 22 - 32 mEq/L 05/17/2019 12:15 [facility] Glucose 85 70 - 100 mg/dL 05/17/2019 12:15 [facility] BUN 16 10 - 26 mg/dL 05/17/2019 12:15 [facility] Creatinine 0.71 0.52 - 1.04 mg/dL 05/17/2019 12:15 [facility] eGFR 95 >60 mL/min/1.7 3m2 05/17/2019 12:15 [facility] Comment:eGFR calculated gordo ureña CKD-EPI equation for non- Americans. Multiply eGFR by 1.16 for patients. Total Protein 7.0 6.3 - 8.2 g/dL 05/17/2019 12:15 [facility] Albumin 4.2 3.4 - 4.9 g/dL 05/17/2019 12:15 [facility] Alkaline Phosphatase 85 38 - 126 U/L 05/17/2019 12:15 [facility] AST 34 15 - 46 U/L 05/17/2019 12:15 [facility] ALT 28 <35 U/L 05/17/2019 12:15 [facility] Bilirubin, Total 0.6 <1.4 mg/dL 05/17/20 19 12:15 [facility] Calcium 9.9 8.5 - 10.5 mg/dL 05/17/2019 12:15 [facility] Calculated Calcium 9.7 8.5 - 10.5 mg/dL 05/17/2019 12:15 [facility] Blood 05/17/2019 11:4 5 EST 05/17/2019 11:56 EST Augustina Colin MD PhD CHEMISTRY & BLOOD GA S ORDERABLES Performing Organization Address City/State/[facility] Co de Phone Number [facility] [address] [place] [address] documented in this encounter Visit Diagnoses Diagnosis Metastatic breast cancer- Primary documented in this encounter Care Teams Product Development Ecologist Relationship Specialty Start Date End Date Linda Blancas MD [address] [place] [address] 30 [place], [place] 725552 PCP - General 01/06/11 Adolfo Carreno MD [address] [place] [address], [facility], [facility] 2 [place] [address] General Surgery 04/26/19 Augustina Colin MD PhD [address] [place] [address] 2 [place] [phone] Medical Oncology 04/26/19 documented as of this encounter
--- OUTSIDE RECORDS SUMMARY | 2024-03-20 15:02 | XMS_ITS | Encounter Summary ---
Author Organization [facility] Address [address] [place] [address] Care Team Providers Care Food Assembler Commissary Kitchen Name Role Phone Linda Blancas MD Primary Care Provider [phone] Adolfo Carreno MD Unavailable [phone] Augustina Colin MD PhD Unavailable Unavailable Reason for Visit * Auth/Cert Specialty Diagnoses / Procedures Referred By Doug hearn Referred To Contact Diagnoses Personal history of malignant neoplasm of breast Procedures ID DELAY BREAST PROS AFTER BREAST SURG Exchange right tissue honey blender to silicone implant, exchange of left implant for matching Referral ID Status Reason Start Date Expiration Date Visits Re quested Visits Authorized [id number] 1 1 Encounter Details Date Type Department Care Team (Latest Contact Info) Description 05/23/2019 8:55 EST - 05/24/2019 23:59 EST Hospital Encounter [facility] Hematology & Oncology - Main [place] [address] [place], [place] 8[address] Metastatic breast cancer (HCC-CMS) (Primary Dx) Social [...] DAILY 90 Tab 3 01/15/2019 01/10/2020 mv-mn/C/glutamin/lysin/ [id number] (AIRBORNE, ASCORBATE SODIUM, ORAL) Take by mouth [...] 11/01/2016 01/13/2022 documented as of this encounter Plan of Treatment Upcoming Encounters Date Type Department Care Team (Late st Contact Info) Description 04/02/2024 10:30 EDT Appointment [facility] Interventional Radiology Unit [address] [place] [address] [phone] 04/02/2024 15:15 EDT Office Visit [facility] Surgical Oncology - [address] 288551 Adolfo Carreno MD [address] [place] [address] 2 [place] [phone] 04/05/2024 9:30 EDT Telemedicine [facility] - [facility] Palliative Care Services [address] [place] [address] [phone] Chichi Woods MD [address] [place] [address] [phone] 04/11/2024 15:00 EDT Telemedicine [facility] Hematology & Oncology [address] [phone] Alisson Carreon MD [address] [place] [address] 2 [place] [phone] 04/13/2024 13:30 EDT Appointment [facility] Hematology & Oncology - [address] [phone] 04/13/2024 14:00 EDT Appointment [facility] Hematology & Oncology - [address] [address] 04/16/2024 10:00 EST Telemedicine [facility] - [facility] Palliative Care Services [address] [place] [address] [phone] Chichi Woods MD [address] [place] [address], [address] [phone] 04/24/2024 9:00 EST Appointment [facility] Radiology CT Outpatient - [address] 279161 04/24/2024 11:00 EST Appointment [facility] Breast Imaging - [facility] S [address] 097281 04/27/2024 12:00 EST Appointment [facility] Hematology & Oncology - [address] 144161 05/02/2024 15:00 EST Telemedicine [facility] Hematology & Oncology - [address] 173221 Alisson Carreon MD [address] [place] [address], [facility] 2 [place] [phone] 05/04/2024 10:15 EST Ancillary Procedure [facility] Cardiology - [place] [address] 05/04/2024 11:30 EST Appointment [facility] Hematology & Oncology - [address] [address] 05/04/2024 12:00 EST Appointment [facility] Hematology & Oncology - [address] 963231 06/12/2024 13:00 EST Appointment [facility] Center Radiology CT - [address] [address] documented as of this encounter Visit Diagnoses Diagnosis Metastatic breast cancer- Primary documented in this encounter Care Teams Food Assembler Commissary Kitchen Relationship Specialty Start Date End Date Linda Blancas MD [address] [place] [address] 30 [place] [address] PCP - General 01/06/11 Adolfo Carreno MD [address] [place] [address] [phone] General Surgery 04/26/19 Augustina Colin MD PhD [address] [place] [phone] Medical Oncology 04/26/19 documented as of this encounter
--- OUTSIDE RECORDS SUMMARY | 2024-03-20 15:02 | XMS_ITS | Encounter Summary ---
Author Organization [facility] Address [address] [place] [address] Care Team Providers Care Winder Tender Name Role Phone Linda Blancas MD Primary Care Provider Encounter Details Date Type Department Care Team (Late st Contact Info) Description 04/18/2019 Documentation Visit [facility] OBGYN Services - [address] [phone] Quita Babb PA-C 111 [facility], Level 2 [place] [address] Social History Tobacco Use Types [...] Progress Notes * Quita Babb PA - 04/18/2019 1203 EST Outside lab received from [facility] . Pap and HPV, both normal/negativeentered as an external result, and result placed in scanned documents. Pt notified of result via letter. documented in this encounter Plan of Treatment Upcoming Encounters Date Type Department Care Team (Late st Contact Info) Description 04/02/2024 10:30 EDT Appointment [facility] Interventional Radiology Unit [address] [place] [address] 04/02/2024 15:15 EDT Office Visit [facility] Surgical Oncology - [address] [phone] Adolfo Carreno MD [address] [place] [address] 2 [place] [phone] 04/05/2024 9:30 EDT Telemedicine [facility] - [facility] Palliative Care Services [address] [place], [place] 590401 Chichi Woods MD [address] [place] [address], [address] [phone] 04/11/2024 15:00 EDT Telemedicine [facility] Hematology & Oncology - [address] [phone] Alisson Carreon MD [address] [place] [address] 2 [place] [phone] 04/13/2024 13:30 EDT Appointment [facility] Hematology & Oncology - [address] [phone] 04/13/2024 14:00 EDT Appointment [facility] Hematology & Oncology [address] [address] 04/16/2024 10:00 EST Telemedicine [facility] - [facility] Palliative Care Services [address] [place] [address] 261961 Chichi Woods MD [address] [place] [address] [phone] 04/24/2024 9:00 EST Appointment [facility] Radiology CT Outpatient - [address] 888311 04/24/2024 11:00 EST Appointment [facility] Breast Imaging - [facility] [address] 565571 04/27/2024 12:00 EST Appointment [facility] Hematology & Oncology - [address] 105261 05/02/2024 15:00 EST Telemedicine [facility] Hematology & Oncology [address] 938281 Alisson Carreon MD [address] [place] [address], Level [address] [place] [phone] 05/04/2024 10:15 EST Ancillary Procedure [facility] Cardiology [place] [address] 05/04/2024 11:30 EST Appointment [facility] Hematology & Oncology - [address] [phone] 05/04/2024 12:00 EST Appointment [facility] Hematology & Oncology - [address] [address] 06/12/2024 13:00 [facility] Radiology CT - [address] [phone] documented as of this encounter Procedures Procedure Name Priority Date/Time Associated Diagnosis Comments PAP TEST- RESULT ONLY Routine 04/06/2019 HPV DETECTION, HIGH RISK TYPES Routine 04/06/2019 documented in this encounter Results * HPV DETECTION, HIGH RISK TYPES (04/06/2019) Specimen Description, External Think prep Report Status, External HPV 16, 18 and other high risk types negative Result, External Negative Specimen of unknown material (specimen) 04/06/2019 Quita Babb PA-C MICROBIOLOGY - GENERAL ORDERABLES * PAP TEST- RESULT ONLY (04/06/2019) Other Pap Screen, External Negative for Intraepithelial lesion or malignancy 04/06/2019 Quita Babb PA-C PATHOLOGY JAIMEE ACOSTA documented in this encounter Visit Diagnoses Not on filedocumented in this encounter Orders Lab Orders Without Results Count Last Ordered D ate First Ordered Date HPV DETECTION, HIGH RISK TYPES 2 04/06/2019 PAP TEST- RESULT ONLY 1 04/06/2019 documented in this encounter Care Teams Winder Tender Relationship Specialty Start Date End Date Linda Blancas MD [facility] [address] [place] [address] PCP - General 01/06/11 documented as of this encounter
--- OUTSIDE RECORDS SUMMARY | 2024-03-20 15:03 | XMS_ITS | Encounter Summary ---
Author Organization [facility] Address [address] [place] [address] Care Team Providers Care Revenue Manager Name Role Phone Linda Blancas MD Primary Care Provider [phone] Reason for Visit * Reason Onset Date Comments Paperwork request 02/13/2019 Follow-up 02/13/2019 Encounter Details Date Type Department Care Team (Late st Contact Info) Description 02/13/2019 Telephone [facility] Hematology & Oncology - [address] [address] Augustina Colin MD PhD Paperwork request; Follow-up Social History Tobacco Use Types Packs/Day [...] Telephone Encounter - Quita Rob RN - 02/15/2019 1015 EDT Called and spoke with Ms Pleitez to notify her paperwork wasn't received. Pt resent disability paperwork via email. Remote Medical Coder will completed and fax to company and email pt a copy. * Telephone Encounter - Quita Rob RN - 02/13/2019 1628 EDT Emailed pt to notify her disability paperwork was not received. Received email from pt with partial disability paperwork attached. Pt made aware and technical report writer provided fax number to send the rest of the paperwork. * Telephone Encounter - Andreas Villeda - 02/13/2019 1513 EDT Patient called to follow up on an e-mail about getting the Motion Designer disability form they sent. Asking for confirmation that this was received. Asking for an e- mail if not received. Please advise documented in this encounter Plan of Treatment Upcoming Encounters Date Type Department Care Team (Late st Contact Info) Description 04/02/2024 10:30 EDT Appointment [facility] Interventional Radiology Unit [address] [place] [address] [phone] 04/02/2024 15:15 EDT Office Visit [facility] Surgical Oncology - [facility] [address] [place], [place] 908761 Adolfo Carreno MD 111 [facility], Level 2 [place] [phone] 04/05/2024 9:30 EDT Telemedicine [facility] Palliative Care Services [address] [place] [address] Chichi Woods MD [address] [place] [address] [phone] 04/11/2024 15:00 EDT Telemedicine [facility] Hematology & Oncology - [address] [phone] Alisson Carreon MD [address] [place] [address] 2 [place] [phone] 04/13/2024 13:30 EDT Appointment [facility] Hematology & Oncology - [address] [address] 04/13/2024 14:00 EDT Appointment [facility] Hematology & Oncology - [address] [address] 04/16/2024 10:00 EST Telemedicine [facility] Palliative Care Services [address] [place] [address] [phone] Chichi Woods MD [address] [place] [address] [phone] 04/24/2024 9:00 EST Appointment [facility] Radiology CT Outpatient - [address] [phone] 04/24/2024 11:00 EST Appointment [facility] Breast Imaging - [address] [address] 04/27/2024 12:00 EST Appointment [facility] Hematology & Oncology - [address] [phone] 05/02/2024 15:00 EST Telemedicine [facility] Hematology & Oncology [address] 913181 Alisson Carreon MD [address] [place] [address], Level [address] [place] [phone] 05/04/2024 10:15 EST Ancillary Procedure [facility] Cardiology - [address] [place] [address] 05/04/2024 11:30 EST Appointment [facility] Hematology & Oncology [address] 963941 05/04/2024 12:00 EST Appointment [facility] Hematology & Oncology [address] 235151 06/12/2024 13:00 EST Appointment [facility] Radiology CT - [address] [phone] documented as of this encounter Visit Diagnoses Not on filedocumented in this encounter Care Teams Revenue Manager Relationship Specialty Start Date End Date Linda Blancas MD [facility] [address] [place] [address] PCP - General 01/06/11 documented as of this encounter
--- OUTSIDE RECORDS SUMMARY | 2024-03-20 15:03 | XMS_ITS | Encounter Summary ---
Author Organization [facility] Address [address] [place] [address] Care Team Providers Care Used Car Renovator Name Role Phone Linda Blancas MD Primary Care Provider [phone] Encounter Details Date Type Department Care Team (Latest Contact Info) Description 11/07/2018 13:24 EDT - 11/07/2018 23:59 EDT Hospital Encounter [facility] [address] [place] [address] Augustina Colin MD PhD Discharge Disposition: Auto Discharge Social History Tobacco Use Types Packs/Day Years [...] as of this encounter Discharge Diagnoses Diagnosis Z85.3 Personal history of malignant neoplasm of breast-Z85.3[ICD-10-CM] C50.919 Malignant neoplasm of unspecified site of [...] TAKE 1 TABLET DAILY 90 Tab 3 01/16/2018 01/14/2019 mv-mn/C/glutamin/lysin /[id number] (AIRBORNE, ASCORBATE SODIUM, ORAL) Take by mouth [...] Discharge Disposition Disposition Code Departure Means Destination Auto Discharge Home documented in this encounter Plan of Treatment Upcoming Encounters Date Type Department Care Team (Late st Contact Info) Description 04/02/2024 10:30 EDT Appointment [facility] Interventional Radiology Unit [address] [place] [address] [phone] 04/02/2024 15:15 EDT Office Visit [facility] Surgical Oncology [address] 470971 Adolfo Carreno MD [address] [place] [address] 2 [place] [phone] 04/05/2024 9:30 EDT Telemedicine [facility] Palliative Care Services [address] [place] [address] [phone] Chichi Woods MD [address] [place] [address] [phone] 04/11/2024 15:00 EDT Telemedicine [facility] Hematology & Oncology [address] 912621 Alisson Carreon MD [address] [place] [address] [phone] 04/13/2024 13:30 EDT Appointment [facility] Hematology & Oncology [address] 561911 04/13/2024 14:00 EDT Appointment [facility] Hematology & Oncology [address] 218161 04/16/2024 10:00 EST Telemedicine [facility] Palliative Care Services [address] [place] [address] 785341 Chichi Woods MD [address] [place] [address], [address] [place] [phone] 04/24/2024 9:00 EST Appointment [facility] Radiology CT Outpatient - [address] 161061 04/24/2024 11:00 EST Appointment [facility] Breast Imaging - [address] 262091 04/27/2024 12:00 EST Appointment [facility] Hematology & Oncology [address] [phone] 05/02/2024 15:00 EST Telemedicine [facility] Hematology & Oncology [address] 422371 Alisson Carreon MD [address] [place] [address], Level 2 [place] [phone] 05/04/2024 10:15 EST Ancillary Procedure [facility] Cardiology - [address] [place] [address] 05/04/2024 11:30 EST Appointment [facility] Hematology & Oncology [address] [phone] 05/04/2024 12:00 EST Appointment [facility] Hematology & Oncology - [address] [phone] 06/12/2024 13:00 EST Appointment [facility] Radiology CT - [address] [phone] documented as of this encounter Visit Diagnoses Not on filedocumented in this encounter Care Teams Used Car Renovator Relationship Specialty Start Date End Date Linda Blancas MD [facility] [address] [place], [place] 245092 PCP - General 01/06/11 documented as of this encounter
--- OUTSIDE RECORDS SUMMARY | 2024-03-20 15:03 | XMS_ITS | Encounter Summary ---
Author Organization [facility] Address [address] [place] [address] Care Team Providers Care Director Of Payroll Name Role Phone Linda Blancas MD Primary Care Provider [phone] Reason for Referral * Surgery (Routine) - Closed Specialty Diagnoses / Procedures Referred By Contac t Referred To Contact Plastic Surgery Diagnoses Personal history of malignant neoplasm of breast Procedures WA DELAY BREAST PROS AFTER BREAST SURG WA REVISE BREAST RECONSTRUCTION Tylor Boss MD FACS [address] [place] [address] [place] [phone] Tylor Boss MD FACS [address] [facility] [address] [place] [phone] Referral ID Status Reason Start Date Expiration Date V isits Requested Visits Authorized [id number] Closed Specialty Services Required 12/03/2018 1 1 Question Answer Reason for Request: right Breast implant exchange with fat grafting Scheduled Surgery Date: 11/22/2018 Laterality: Right Location of Procedure: Main [place] [facility]/ Outpt Anesthesia: General Estimated Length of Procedure: 3.5 hours CPT Code: 92054-GA, 19380_Fat Comments Allergies: -- Amoxicillin -- Other (See Comments) and Rash -- Red rash -- Sulfa (Sulfonamide Antibiotics) -- Hives -- Light lavender rash Past Medical Hx: Past Medical History: No date: Allergy No date: Arthritis No date: Back pain November 2003: 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 No date: Environmental allergies No date: Hearing loss No date: Numbness No date: Wears glasses Reason for Visit * Reason Onset Date Comments Procedure 11/22/2018 Encounter Details Date Type Department Care Team (Late st Contact Info) Description 11/22/2018 Orders Only [facility] Plastic, Reconstructive & Cosmetic Surgery - [address], [address] [place] [address] Tylor Boss MD [address] [phone] Personal history of malignant neoplasm [...] [facility] [address] [place] [address] 04/02/2024 15:15 EDT Office Visit [facility] Surgical Oncology - Main [address] 756261 Adolfo Carreno MD [address] [place] [address] 2 [place] [phone] 04/05/2024 9:30 EDT Telemedicine [facility] Palliative Care Services [address] [place] [address] Chichi Woods MD [address] [place] [phone] 04/11/2024 15:00 EDT Telemedicine [facility] Hematology & Oncology - [address] [phone] Alisson Carreon MD [address] [place] [address] 2 [place] [phone] 04/13/2024 13:30 EDT Appointment [facility] Hematology & Oncology - [address] [phone] 04/13/2024 14:00 EDT Appointment [facility] Hematology & Oncology - [address] [phone] 04/16/2024 10:00 EST Telemedicine [facility] Palliative Care Services [address] [place] [address] [phone] Chichi Woods MD [address] [place] [phone] 04/24/2024 9:00 EST Appointment [facility] Radiology CT Outpatient - [address] 164321 04/24/2024 11:00 EST Appointment [facility] Breast Imaging - [facility] [address] [place] [address] 04/27/2024 12:00 EST Appointment [facility] Hematology & Oncology [address] [address] 05/02/2024 15:00 EST Telemedicine [facility] Hematology & Oncology [address] 969291 Alisson Carreon MD [address] [place] [address], Level 2 [place] [phone] 05/04/2024 10:15 EST Ancillary Procedure [facility] Cardiology [place] [address] 05/04/2024 11:30 EST Appointment [facility] Hematology & Oncology [address] [phone] 05/04/2024 12:00 EST Appointment [facility] Hematology & Oncology [address] 732331 06/12/2024 13:00 EST Appointment [facility] Radiology CT - [address] [phone] Scheduled Referrals Name Type Priority Associated Diagnoses Orde r Schedule AMB CONS/FOLLOW UP SURGERY SCHED ORD Outpatient Referral Routine Personal history of malignant neoplasm of breast Ordered: 12/03/2018 documented as of this encounter Visit Diagnoses Diagnosis Personal history of malignant neoplasm of breast- Primary documented in this encounter Care Teams Director Of Payroll Relationship Specialty Start Date End Date Linda Blancas MD [facility] [address] [place] [address] PCP - General 01/06/11 documented as of this encounter
--- OUTSIDE RECORDS SUMMARY | 2024-03-20 15:03 | XMS_ITS | Encounter Summary ---
Author Organization [facility] Address [address] [place] [address] Care Team Providers Care Beef Specialist Name Role Phone Linda Blancas MD Primary Care Provider [phone] Encounter Details Date Type Department Care Team (Late st Contact Info) Description 11/07/2018 Phlebotomy Only [address] [address] [facility] [place], Outpatient Personal history of malignant neoplasm of breast [...] [facility] Interventional Radiology Unit [address] [place] [address] [phone] 04/02/2024 15:15 EDT Office Visit [facility] Surgical Oncology - [address] 177301 Adolfo Carreno MD [address] [place] [phone] 04/05/2024 9:30 EDT Telemedicine [facility] Palliative Care Services [address] [place] [address] [phone] Chichi Woods MD [address] [place] [phone] 04/11/2024 15:00 EDT Telemedicine [facility] Oncology [address] [phone] Alisson Carreon MD [address] [place] [address] [phone] 04/13/2024 13:30 EDT Appointment [facility] [address] [phone] 04/13/2024 14:00 EDT Appointment [facility] [address] [id number] 04/16/2024 10:00 EST Telemedicine [facility] Palliative Care Services [address] [place] [address] [phone] Chichi Woods MD [address] [place] [address] [address] [place] [phone] 04/24/2024 9:00 EST Appointment [facility] Radiology CT Outpatient - [address] [id number] 04/24/2024 11:00 EST Appointment [facility] Breast Imaging - [facility] [address] [place], [place] [phone] 04/27/2024 12:00 EST Appointment [facility] On[facility] [address] [phone] 05/02/2024 15:00 EST Telemedicine [facility] [address] [phone] Alisson Carreon MD [address] [place] [address], Level 2 [place] [phone] 05/04/2024 10:15 EST Ancillary Procedure [facility] Cardiology - [place] [address] 05/04/2024 11:30 EST Appointment [facility] [address] [phone] 05/04/2024 12:00 EST Appointment [facility] [address] [phone] 06/12/2024 13:00 EST Appointment [facility] Radiology CT - [address] [phone] documented as of this encounter Procedures Procedure Name Priority Date/Time Associated Diagnosis Comments CA 27.29 Routine 11/07/2018 13:40 EDT Personal history of malignant neoplasm of breast documented in this encounter Results * CA 27.29 (11/07/2018 13:40 EDT) CA 27.29 22.7 <38 U/mL 11/08/2018 10:07 EDT [facility] Comment: Serum CA 27.29 concentration should not be interpreted as absolute evidence for the presence or absence of malignant disease. Assayed utilizing [employer] ([employer]) chemiluminescent technology. ??Values obtained by using different assay methods cannot be used interchangeably. Blood specimen (specimen) BLOOD SPECIMEN / Unknown 11/07/2018 13:40 EDT 11/07/2018 13:56 EDT Augustina Colin MD PhD CHEMISTRY & BLOOD GA S ORDERABLES [facility] [address] [place] [address] documented in this encounter Visit Diagnoses Diagnosis Personal history of malignant neoplasm of breast- Primary documented in this encounter Care Teams Beef Specialist Relationship Specialty Start Date End Date Linda Blancas MD [facility] [address] [place] [address] PCP - General 01/06/11 documented as of this encounter
--- OUTSIDE RECORDS SUMMARY | 2024-03-20 15:03 | XMS_ITS | Encounter Summary ---
Author Organization [facility] Address [address] [place] [address] Care Team Providers Care Motor Operator Name Role Phone Linda Blancas MD Primary Care Provider [phone] Reason for Visit * Reason Onset Date Comments Paperwork request 02/07/2019 Encounter Details Date Type Department Care Team (Late st Contact Info) Description 02/07/2019 Telephone [facility] Hematology & Oncology - [facility] [address] [place] [address] Augustina Colin MD PhD Paperwork request Social History Tobacco Use Types Packs/Day Years [...] Telephone Encounter - Quita Rob RN - 02/08/2019 1405 EDT Emailed pt to follow-up on disability paperwork because it was not received through [facility] online. * Telephone Encounter - Yovana Cox - 02/07/2019 1126 EDT Patient is calling to inform that it is time to update her disability paperwork, she sent it via the portal. Please call with any questions or concerns. documented in this encounter Plan of Treatment Upcoming Encounters Date Type Department Care Team (Late st Contact Info) Description 04/02/2024 10:30 EDT Appointment [facility] Interventional Radiology Unit [address] [place] [address] [phone] 04/02/2024 15:15 EDT Office Visit [facility] Surgical Oncology - [address] [phone] Adolfo Carreno MD [address] [place] [address], [facility] 2 [place] [phone] 04/05/2024 9:30 EDT Telemedicine [facility] - [facility] Palliative Care Services [address] [place], [place] 380531 Chichi Woods MD [address] [place] [address], [address] [phone] 04/11/2024 15:[address] [facility] Hematology & Oncology - [address] [phone] Alisson Carreon MD [address] [facility], Level 2 [place] [phone] 04/13/2024 13:[address] [facility] Hematology & Oncology [address] [phone] 04/13/2024 14:[address] [facility] Hematology & Oncology - [address] [phone] 04/16/2024 10:00 EST Telemedicine [facility] - [facility] Palliative Care Services [address] [place] [address] [phone] Chichi Woods MD [address] [place] [address], [address] [phone] 04/24/2024 9:00 EST Appointment [facility] Radiology CT Outpatient - [address] [id number] 04/24/2024 11:00 EST Appointment [facility] Breast Imaging - [facility] S [address] [phone] 04/27/2024 12:[address] [facility] Hematology & Oncology - [address] 221461 05/02/2024 15:[address] [facility] Hematology & Oncology - [address] [phone] Alisson Carreon MD [address] [place] [address], Level [address] [place] [phone] 05/04/2024 10:15 EST Ancillary Procedure [facility] Cardiology - [address] [place], [place] [phone] 05/04/2024 11:30 EST Appointment [facility] Hematology & Oncology [address] [address] 05/04/2024 12:[address] [facility] Hematology & Oncology [address] [address] 06/12/2024 13:00 EST Appointment [facility] Center Radiology CT - [address] [address] documented as of this encounter Visit Diagnoses Not on filedocumented in this encounter Care Teams Motor Operator Relationship Specialty Start Date End Date Linda Blancas MD [facility] [address] [place] [address] PCP - General 01/06/11 documented as of this encounter
--- OUTSIDE RECORDS SUMMARY | 2024-03-20 15:03 | XMS_ITS | Encounter Summary ---
Author Organization [facility] Address [address] [place] [address] Care Team Providers Care Projection Camera Operator Name Role Phone Linda Blancas MD Primary Care Provider [phone] Reason for Visit * Reason Comments Breast Cancer Encounter Details Date Type Department Care Team (Latest Contact Info) Description 01/26/2019 15:30 EDT Office Visit [facility] Osteoporosis - [facility] [address] [place] [address] Karen Fong, DO [address] [facility] [address] [place] [phone] Awilda Riojas MD Metastatic breast cancer ([facility]); Osteoporosis screening; Post-menopausal; H/O estrogen therapy; History of bisphosphonate therapy; Aromatase inhibitor use Discharge Disposition: Auto Discharge Social History Tobacco [...] - - Weight 61.2 kg (135 lb) 01/26/2019 1540 EDT Height 155.8 cm (5' 1.34) 01/26/2019 1540 EDT Body Mass Index 25.23 01/26/2019 1540 EDT documented in this encounter Functional Status [...] as of this encounter Discharge Diagnoses Diagnosis Z12.31 Encounter for screening mammogram for malignant neoplasm of breast-Z12.31[ICD-10-CM] Z85.3 Personal history of malignant neoplasm of breast-Z85.3[ICD-10-CM] documented in this encounter Discharge Disposition Disposition Code Departure Means Destination Auto Discharge documented in this encounter Progress Notes * Miriam Hammer - 01/26/2019 1530 EDT Procedure Date: 01/26/2019 Referring Physician: Augustina Colin MD Previous Scan Date: 12-09-2016 ABN Necessary: No There were no vitals taken for this visit. Done AP SPINE Yes FEMUR Yes TOTAL BODY FOREARM LVA/VFA HEEL US PATIENT HISTORY: Patient Active [...] Hearing loss ??? Numbness ??? Wears glasses Additional Comments: Previous/Prior Comparison? Yes Pharmacologic? No Osteoporosis Center Patient Information Ethnicity/Race: Nutrition and Habits: Do you consume dairy? Yes Number of servings per day? 2 Do you take calcium supplements? Yes Amount? [...] inhibitor: Letrozol (Femera), Anastrozole (arimidex), Exemestane (Aromasin) Yes TZD's for diabetes (Actos, Avandia) No Medical History: Have you had any of the following?: Hyperthyroidism (over active thyroid) No Hyperparathyroidism (over active parathyroid, high blood calcium) No Kidney failure No Rheumatoid arthritis No Seizure disorder (epilepsy) No Diabetes mellitus No Bariatric surgery/Gastric bypass No Back Surgery No Back X-ray Yes L spine Fractures after age 41 No Area: Treatments: Alendronate (Fosamax) Never, Date stopped: Calcitonin (Miacalcin) Never, Date stopped: Denosumab (Prolia) Never, Date stopped: Ibandronate (Boniva) Past X 5 years , Date stopped: 2003 Pamidronate (Aredia) Never, Date stopped: Raloxifene (Evista) Never, Date stopped: Risendronate (Actonel) Never, Date stopped: Teriparatide (Forteo) Never, Date stopped: Zoledronic Acid (Reclast, Zomata) Never, Date stopped: Other: Never, Date stopped: For Women Only: What was your age at menopause? 38 Are you taking estrogen now or within the past year? Past Oral HRT , Date stopped:2003 Have you been treated for breast cancer? Past 02/2012 Comments: MIRIAM HAMMER 01/26/2019 13:12 documented in this encounter Plan of Treatment Upcoming Encounters Date Type Department Care Team (Late st Contact Info) Description 04/02/2024 10:30 EDT Appointment [facility] Interventional Radiology Unit [address] [place] [address] [phone] 04/02/2024 15:15 EDT Office Visit [facility] Surgical Oncology - [address] [phone] Adolfo Carreno MD [address] [place] [address] 2 [place] [phone] 04/05/2024 9:30 EDT Telemedicine [facility] - [facility] Palliative Care Services [address] [place] [address] [phone] Chichi Woods MD [address] [place] [address], [address] [phone] 04/11/2024 15:00 EDT Telemedicine [facility] Hematology & Oncology - [address] [phone] Alisson Carreon MD [address] [place] [address] 2 [place] [phone] 04/13/2024 13:30 EDT Appointment [facility] Hematology & Oncology - [address] [address] 04/13/2024 14:00 EDT Appointment [facility] Hematology & Oncology [address] [phone] 04/16/2024 10:00 EST Telemedicine [facility] - [facility] Palliative Care Services [address] [place] [address] [phone] Chichi Woods MD [address] [place] [phone] 04/24/2024 9:00 EST Appointment [facility] Radiology CT Outpatient - [address] [phone] 04/24/2024 11:00 EST Appointment [facility] Breast Imaging - [facility] S [address] 293981 04/27/2024 12:00 EST Appointment [facility] Hematology & Oncology - [address] [phone] 05/02/2024 15:00 EST Telemedicine [facility] Hematology & Oncology [address] [phone] Alisson Carreon MD [address] [place] [address], Level [address] [place] [phone] 05/04/2024 10:15 EST Ancillary Procedure [facility] Cardiology - [address] [place] [address] 05/04/2024 11:30 EST Appointment [facility] Hematology & Oncology [address] 805561 05/04/2024 12:00 EST Appointment [facility] Hematology & Oncology [address] [phone] 06/12/2024 13:00 [facility] Radiology CT - Main [address] [address] documented as of this encounter Procedures Procedure Name Priority Date/Time Associated Diagnosis Comments DXA DUAL XRAY ABSORPTIOMETRY FOR BONE DENSITY ([facility] PERFORMED) Routine 02/08/2019 17:26 EDT Metastatic breast cancer (HCC-CMS) documented in this encounter Results * DXA DUAL XRAY ABSORPTIOMETRY FOR BONE DENSITY (02/08/2019 17:26 EDT) DEXA Bone Density [facility] DEXA Bone Density, External [facility] Anatomical Region Laterality Modality Other 02/08/2019 17:2 6 EDT Augustina Colin MD PhD IMG DEXA ORDERABLES documented in this encounter Visit Diagnoses Diagnosis Metastatic breast cancer Osteoporosis screening Special screening for osteoporosis Post-menopausal Asymptomatic postmenopausal status (age-related) (natural) H/O estrogen therapy Personal history of estrogen therapy History of bisphosphonate therapy Personal history of other drug therapy Aromatase inhibitor use Use of aromatase inhibitors documented in this encounter Care Teams Projection Camera Operator Relationship Specialty Start Date End Date Linda Blancas MD [address] [place] [address] [address] [place] [address] PCP - General 01/06/11 documented as of this encounter
--- OUTSIDE RECORDS SUMMARY | 2024-03-20 15:03 | XMS_ITS | Encounter Summary ---
Author Organization [facility] Address [address] [place] [address] Care Team Providers Care Public Address System Installer Name Role Phone Linda Blancas MD Primary Care Provider [phone] Reason for Visit * Reason Comments Follow-up Encounter Details Date Type Department Care Team (Late st Contact Info) Description 01/26/2019 12:00 EDT Office Visit [facility] Surgical Oncology - [address] [address] Adolfo Carreno MD [address] [place] [address], [address] [place] [phone] Routine cancer follow-up visit (Primary Dx); Personal [...] Progress Notes * Adolfo Carreno MD - 01/26/2019 1200 EDT This office note has been dictated. * Adolfo Carreno MD - 01/26/2019 0000 EDT [facility] BREAST CANCER PROGRAM PROGRESS / FOLLOWUP NOTE - 01/26/2019 REASON FOR VISIT: The patient is seen in followup. SUBJECTIVE: The patient is a 58-year-old woman who had recurrent breast cancer, initially had DCIS of the right breast treated with a total mastectomy, had a positive margin, had no further treatment, developed a recurrence of invasive disease at that area. She developed metastatic disease in the lung and mediastinal lymph nodes. Treated initially with letrozole and palbociclib, had an excellent response, had subsequent reexcision of that area, had a new implant placed on that side and also hada mastopexy and implant on the left. The patient continues now on the letrozole and is doing fairlywell, has no complaints. OBJECTIVE: On exam, she is in no distress, has no scleral icterus. Neck exam reveals no palpable cervical or supraclavicular lymph nodes. There are no nodules in her thyroid. No carotid bruits or JVDare noted. Lungs are clear to auscultation. Heart has a regular rate and rhythm without S3, S4, or murmurs. Breast exam reveals the mastectomy on the right with aed trainer. She has a mastopexy incisionon the left. Palpation of the right side reveals no palpable abnormality suspicious for recurrence.There are no palpable lymph nodes in the axilla. The left breast has no palpable abnormality suspicious for recurrence. There are no palpable lymph nodes in the axilla. There are no abdominal masses, no hepato or splenomegaly was noted. DIAGNOSTIC DATA: Ultrasound of the right side demonstrates the aed trainer in place. There is no evidence of recurrent disease in the mastectomy site. There are no abnormal lymph nodes in the internal mammary or axillary region. The right neck was also examined and no abnormal lymph nodes were seen. The left breast was examined. She has an implant as well on that side that is in normal position. There are no architectural changes, solid or cystic abnormalities in the left. There are no abnormal lymph nodes in the internal mammary or axillary region on the left. The patient had a mammogram of theleft breast earlier today. Official reports are pending, but initial look at this shows no obvious a bnormalities. ASSESSMENT AND PLAN: At this point, the patient is doing well, has no evidence of persistent disease on clinical exam or imaging of the breast and chest wall. We will plan followup with myself again in 6 months. Adolfo Carreno MD 12 31 PM - Adolfo Carreno MD ln Dictation ID: [id number] cc: Linda Blancas MD, [place] [id number] Augustina Colin MD, [facility] - Hematology Oncology [address] [place] [address] Tylor Boss MD, [facility] - Plastic Surgery [address] [place] [address], [address], [place] [address] documented in this encounter Plan of Treatment Upcoming Encounters Date Type Department Care Team (Late st Contact Info) Description 04/02/2024 10:30 EDT Appointment [facility] Interventional Radiology Unit [address] [place] [address] [phone] 04/02/2024 15:15 EDT Office Visit [facility] Surgical Oncology - [address] [phone] Adolfo Carreno MD 111 [facility], [address] [place] [phone] 04/05/2024 9:30 EDT Telemedicine [facility] Palliative Care Services [address] [place] [address] [phone] Chichi Woods MD [address] [place] [phone] 04/11/2024 15:00 EDT Telemedicine [facility] Hematology & Oncology - [address] [phone] Alisson Carreon MD [address] [place] [address], [address] [place] [phone] 04/13/2024 13:30 EDT Appointment [facility] Hematology & Oncology [address] [phone] 04/13/2024 14:00 EDT Appointment [facility] Hematology & Oncology [address] [id number] 04/16/2024 10:00 EST Telemedicine [facility] Palliative Care Services [address] [place] [address] [phone] Chichi Woods MD [address] [place] [phone] 04/24/2024 9:00 EST Appointment [facility] Radiology CT Outpatient - [address] [id number] 04/24/2024 11:00 EST Appointment [facility] Breast Imaging - [address] [id number] 04/27/2024 12:00 EST Appointment [facility] Hematology & Oncology - [address] [phone] 05/02/2024 15:00 EST Telemedicine [facility] Hematology & Oncology - [address] [phone] Alisson Carreon MD 111 [facility], [address] [place] [phone] 05/04/2024 10:15 EST Ancillary Procedure [facility] Cardiology - [address] [place], [place] [phone] 05/04/2024 11:30 EST Appointment [facility] Hematology & Oncology [address] [phone] 05/04/2024 12:00 EST Appointment [facility] Hematology & Oncology [address] [id number] 06/12/2024 13:00 EST Appointment [facility] Radiology CT - [address] [phone] documented as of this encounter Procedures Procedure Name Priority Date/Time Associated Diagnosis Comments ORDERS - SCANNED 02/20/2019 20:16 EDT documented in this encounter Results * ORDERS - SCANNED (02/20/2019 20:16 EDT) 02/20/2019 20:1 6 EDT Scan 2 Managed Care Specialist ADMISSION ORDERABLE S documented in this encounter Visit Diagnoses Diagnosis Routine cancer follow-up visit- Primary Other follow-up examination Personal history of breast cancer Personal history of malignant neoplasm of breast documented in this encounter Care Teams Public Address System Installer Relationship Specialty Start Date End Date Linda Blancas MD [facility] [address] [place] [address] PCP - General 01/06/11 documented as of this encounter
--- OUTSIDE RECORDS SUMMARY | 2024-03-20 15:03 | XMS_ITS | Encounter Summary ---
Author Organization [facility] Address [address] [place] [address] Care Team Providers Care Refining Supervisor Name Role Phone Linda Blancas MD Primary Care Provider [phone] Reason for Visit * Reason Comments Post-OP Follow Up replacement of silic one implant with new TE Encounter Details Date Type Department Care Team (Late st Contact Info) Description 09/07/2018 14:00 EDT Office Visit [facility] - [address], [address] [place] [address] Karen Singh PA-Grace [address] [place] [address] [place] [phone] S/P breast reconstruction, right (Primary Dx) [...] of this encounter Progress Notes * Karen Guerra - 09/07/2018 1400 EDT SUBJECTIVE: Sunshine Pleitez returns in follow up from Removal of implant with extensive lattice capsulotomy and placement of tissue chief radiology on 08/30/2018. She is doing well. Pain control is adequate without pain medication. OBJECTIVE: On examination, she is in no distress. Surgical tapes removed. Her right breast incisionis healing well, without sign of infection or dehiscence. Good early contour. Site is void of rash and infection. IMPRESSION: Doing well; POD #8. PLAN: Compression or post surgical bra to be worn as advised. Follow up for TE fill in 3 weeks. Acute changes to e reported as advised. Dr. Boss participated in care today. TANK Dawn 09/14/2018 8:52 documented in this encounter Plan of Treatment Upcoming Encounters Date Type Department Care Team (Late st Contact Info) Description 04/02/2024 10:30 EDT Appointment [facility] Interventional Radiology Unit [address] [place] [phone] 04/02/2024 15:15 EDT Office Visit [facility] Surgical Oncology - [facility] [address] [place], [place] 233151 Adolfo Carreno MD 111 [facility], [address] [place] [phone] 04/05/2024 9:[address] [facility] [address] [place], [place] 885711 Chichi Woods MD [address] [place] [address] [address] [place] [phone] 04/11/2024 15:00 EDT Telemedicine [facility] Hematology & Oncology - [address] [phone] Alisson Carreon MD [address] [place] [address], [address] [place] [phone] 04/13/2024 13:30 EDT Appointment [facility] Hematology & Oncology [address] [phone] 04/13/2024 14:00 EDT Appointment [facility] Hematology & Oncology [address] [phone] 04/16/2024 10:[address] [facility] [address] [place] [address] [phone] Chichi Woods MD [address] [place] [phone] 04/24/2024 9:00 EST Appointment [facility] Radiology CT Outpatient - [address] [id number] 04/24/2024 11:00 EST Appointment [facility] Breast [facility] - [facility] [address] [phone] 04/27/2024 12:00 EST Appointment [facility] Hematology & Oncology [address] [phone] 05/02/2024 15:00 EST Telemedicine [facility] Hematology & Oncology - [address] [phone] Alisson Carreon MD 111 [facility], [address] [place] [phone] 05/04/2024 10:15 EST Ancillary Procedure [facility] Cardiology - [address] [place], [place] [phone] 05/04/2024 11:30 EST Appointment [facility] Hematology & Oncology - [address] [phone] 05/04/2024 12:00 EST Appointment [facility] Hematology & Oncology [address] [phone] 06/12/2024 13:00 EST Appointment [facility] Radiology CT - [address] [phone] documented as of this encounter Visit Diagnoses Diagnosis S/P breast reconstruction, right- Primary Breast replaced by other means documented in this encounter Care Teams Refining Supervisor Relationship Specialty Start Date End Date Linda Blancas MD [facility] [address] [place] [address] PCP - General 01/06/11 documented as of this encounter
--- OUTSIDE RECORDS SUMMARY | 2024-03-20 15:03 | XMS_ITS | Encounter Summary ---
Author Organization [facility] Address [address] [place] [address] Care Team Providers Care Cloth Layer Name Role Phone Linda Blancas MD Primary Care Provider [phone] Reason for Referral * Laboratory Services (Routine) - New Request Specialty Diagnoses / Procedures Referred By Contac t Referred To Contact Diagnoses Metastatic breast cancer Procedures CA 27.29 Augustina Colin MD PhD Referral ID Status Reason Start Date Expiration Date V isits Requested Visits Authorized [id number] New Request 03/12/2019 1 1 * Laboratory Services (Urgent) - New Request Specialty Diagnoses / Procedures Referred By Contac t Referred To Contact Diagnoses Metastatic breast cancer Procedures COMPREHENSIVE METABOLIC PANEL (ONCOLOGY USE ONLY-INC MG) Augustina Colin MD PhD Referral ID Status Reason Start Date Expiration Date V isits Requested Visits Authorized [id number] New Request 03/12/2019 1 1 * Laboratory Services (Urgent) - New Request Specialty Diagnoses / Procedures Referred By Contac t Referred To Contact Diagnoses Metastatic breast cancer Procedures COMPLETE BLOOD COUNT AND DIFFERENTIAL Augustina Colin MD PhD Referral ID Status Reason Start Date Expiration Date V isits Requested Visits Authorized [id number] New Request 03/12/2019 1 1 Reason for Visit * Reason Onset Date Comments Labs Only 03/09/2019 Encounter Details Date Type Department Care Team (Late st Contact Info) Description 03/09/2019 Telephone [facility] Hematology & Oncology - [address] [address] Augustina Colin MD PhD Labs Only Social History Tobacco Use Types [...] Telephone Encounter - Quita Rob RN - 03/12/2019 0955 EDT New lab orders orders placed and routed to her PCP office. Pt will have labs done here on Tuesday soorders at [facility] have been placed as well. * Telephone Encounter - Estefany Bell - 03/09/2019 1101 EDT Patient calling about labs, needs to be sure ready for her, has standing, but needs to confirm documented in this encounter Plan of Treatment Upcoming Encounters Date Type Department Care Team (Late st Contact Info) Description 04/02/2024 10:30 EDT Appointment [facility] Interventional Radiology Unit [address] [place] [address] [phone] 04/02/2024 15:15 EDT Office Visit [facility] Surgical Oncology - [address] [phone] Adolfo Carreno MD [address] [place] [address] [phone] 04/05/2024 9:30 EDT Telemedicine [facility] Palliative Care Services [address] [place] [address] [phone] Chichi Woods MD [address] [place] [address] [phone] 04/11/2024 15:00 EDT Telemedicine [facility] Hematology & Oncology - [address] 965861 Alisson Carreon MD [address] [place] [address] [phone] 04/13/2024 13:30 EDT Appointment [facility] Hematology & Oncology [address] [id number] 04/13/2024 14:00 EDT Appointment [facility] Hematology & Oncology [address] [phone] 04/16/2024 10:00 EST Telemedicine [facility] Palliative Care Services [address] [place] [address] [phone] Chichi Woods MD [address] [place] [address] [phone] 04/24/2024 9:00 EST Appointment [facility] Radiology CT Outpatient - [address] 010031 04/24/2024 11:00 EST Appointment [facility] Breast Imaging - [facility] S [address] [place], [place] [phone] 04/27/2024 12:00 EST Appointment [facility] Hematology & Oncology - [address] [phone] 05/02/2024 15:00 EST Telemedicine [facility] Hematology & Oncology [address] 505551 Alisson Carreon MD [address] [place] [address], Level 2 [place] [phone] 05/04/2024 10:15 EST Ancillary Procedure [facility] Cardiology [place] [place] [address] 05/04/2024 11:30 EST Appointment [facility] Hematology & Oncology - [address] [phone] 05/04/2024 12:00 EST Appointment [facility] Hematology & Oncology - [address] [phone] 06/12/2024 13:00 EST Appointment [facility] Radiology CT - [address] [phone] documented as of this encounter Results * COMPREHENSIVE METABOLIC PANEL (ONCOLOGY USE ONLY-INC MG) (05/17/2019 11:45 EST) Sodium 138 136 - 145 mEq/L 05/17/2019 12:15 EST [facility] Potassium 4.6 3.5 - 5.0 mEq/L 05/17/2019 12:15 EST [facility] Chloride 101 96 - 110 mEq/L 05/17/2019 12:15 [facility] CO2 Total 31 22 - 32 mEq/L 05/17/2019 12:15 [facility] Glucose 85 70 - 100 mg/dL 05/17/2019 12:15 [facility] BUN 16 10 - 26 mg/dL 05/17/2019 12:15 [facility] Creatinine 0.71 0.52 - 1.04 mg/dL 05/17/2019 12:15 [facility] eGFR 95 >60 mL/min/1.7 3m2 05/17/2019 12:15 [facility] Comment:eGFR calculated usin g CKD-EPI equation for non- Americans. Multiply eGFR by 1.16 for patients. Total Protein 7.0 6.3 - 8.2 g/dL 05/17/2019 12:15 [facility] Albumin 4.2 3.4 - 4.9 g/dL 05/17/2019 12:15 [facility] Alkaline Phosphatase 85 38 - 126 U/L 05/17/2019 12:15 [facility] AST 34 15 - 46 U/L 05/17/2019 12:15 [facility] ALT 28 <35 U/L 05/17/2019 12:15 [facility] Bilirubin, Total 0.6 <1.4 mg/dL 05/17/20 19 12:15 [facility] Calcium 9.9 8.5 - 10.5 mg/dL 05/17/2019 12:15 [facility] Calculated Calcium 9.7 8.5 - 10.5 mg/dL 05/17/2019 12:15 [facility] Magnesium 2.0 1.7 - 2.8 mg/dL 05/17/2019 12:15 [facility] Blood 05/17/2019 11:4 5 EST 05/17/2019 11:56 EST Augustina Colin MD PhD CHEMISTRY & BLOOD GA S ORDERABLES [facility] [address] [place] [address] * COMPLETE BLOOD COUNT AND DIFFERENTIAL (05/17/2019 11:45 EST) WBC 5.90 4.00 - 12.40 K/cmm 05/17/2019 12:10 [facility] RBC 4.19 3.86 - 5.04 M/cmm 05/17/2019 12:10 [facility] Hemoglobin 13.5 11.6 - 15.2 gm/dL 05/17/2019 12:10 [facility] HCT 40.7 34.9 - 44.4 % 05/17/2019 12:10 [facility] MCV 97 81 - 98 fl 05/17/2019 12:10 [facility] MCH 32.2 26.7 - 33.3 pg 05/17/2019 12:10 [facility] MCHC 33.2 32.1 - 35.9 gm/dL 05/17/2019 12:10 [facility] RDW-CV 11.9 <14.7 % 05/17/2019 12:10 [facility] RDW-SD 42.3 <50.4 fl 05/17/2019 12:10 [facility] PLT 231 141 - 377 K/cmm 05/17/2019 12:10 [facility] MPV 10.2 9.5 - 12.7 fl 05/17/2019 12:10 [facility] % Neutrophils 49.5 % 05/17/2019 12:10 [facility] % Lymphocytes 40.2 % 05/17/2019 12:10 [facility] % Monocytes 7.5 % 05/17/2019 12:10 [facility] % Eosinophils 1.9 % 05/17/2019 12:10 [facility] % Basophils 0.7 % 05/17/2019 12:10 [facility] % Immature Grans 0.2 % 05/17/20 19 12:10 [facility] Absolute Neutrophils 2.93 2.20 - 8.85 K/cmm 05/17/2019 12:10 [facility] Absolute Lymphocytes 2.37 1.09 - 3.30 K/cmm 05/17/2019 12:10 [facility] Absolute Monocytes 0.44 0.10 - 0.80 K/cmm 05/17/2019 12:10 [facility] Absolute Eosinophils 0.11 0.03 - 0.61 K/cmm 05/17/2019 12:10 [facility] ABS Basophils 0.04 0.01 - 0.11 K/cmm 05/17/2019 12:10 [facility] Absolute Immature Grans 0.01 0.00 - 0.06 K/cmm 05/17/2019 12:10 [facility] Type of Differential: Auto 05/17/2019 12:10 [facility] Blood 05/17/2019 11:4 5 EST 05/17/2019 11:56 EST Augustina Colin MD PhD PACKAGES & DNA PROBE ORDERABLES Performing Organization Address [facility] de Phone Number [facility] [address] [place] [address] * CA 27.29 (03/16/2019 11:51 EDT) CA 27.29 31.1 <38 U/mL 03/16/2019 13:43 EDT [facility] Comment: Serum CA 27.29 concentration should not be interpreted as absolute evidence for the presence or absence of malignant disease. Assayed utilizing Nephosity (Gynzy) chemiluminescent technology. ??Values obtained by using different assay methods cannot be used interchangeably. Blood specimen (specimen) BLOOD SPECIMEN / Unknown 03/16/2019 11:51 EDT 03/16/2019 11:57 EDT Augustina Colin MD PhD CHEMISTRY & BLOOD GA S ORDERABLES Performing Organization Address [facility] Co de Phone Number [facility] [address] [place] [address] * (ABNORMAL) COMPREHENSIVE METABOLIC PANEL (ONCOLOGY USE ONLY-INC MG) (03/16/2019 11:51 EDT) Potassium 4.4 3.5 - 5.0 mEq/L 03/16/2019 12:17 [facility] Sodium 142 136 - 145 mEq/L 03/16/2019 12:17 [facility] Chloride 104 96 - 110 mEq/L 03/16/2019 12:17 [facility] CO2 28 22 - 32 mEq/L 03/16/2019 12:17 [facility] Total Alkaline Phosphatase 72 38 - 126 U/L 03/16/2019 12:17 [facility] Bilirubin, Total <0.5 <1.4 mg/dl 03/16/20 19 12:17 [facility] AST 38 15 - 46 U/L 03/16/2019 12:17 [facility] ALT 23 <34 U/L 03/16/2019 12:17 [facility] Albumin 4.3 3.4 - 4.9 g/dl 03/16/2019 12:17 [facility] Total Protein 7.0 6.3 - 8.2 g/dl 03/16/2019 12:17 [facility] Creatinine 0.80 0.52 - 1.04 mg/dl 03/16/2019 12:17 [facility] GFR, Calculated 82 >60 ml/min/1.7 3m2 03/16/2019 12:17 [facility] Comment: eGFR calculated using CKD-EPI equation for non Americans. Multiply eGFR by 1.16 for Americans. BUN 20 10 - 26 mg/dl 03/16/2019 12:17 [facility] Calcium 9.9 8.5 - 10.5 mg/dl 03/16/2019 12:17 [facility] Calculated Calcium 9.7 8.5 - 10.5 mg/dl 03/16/2019 12:17 [facility] Glucose, Serum 112(H) 70 - 100 mg/dl 03/16/2019 12:17 [facility] Magnesium 2.0 1.7 - 2.8 mg/dl 03/16/2019 12:17 [facility] Blood specimen (specimen) BLOOD SPECIMEN / Unknown 03/16/2019 11:51 EDT 03/16/2019 11:57 EDT Augustina Colin MD PhD CHEMISTRY & BLOOD GA S ORDERABLES [facility] [address] [place] [address] * COMPLETE BLOOD COUNT AND DIFFERENTIAL (03/16/2019 11:51 EDT) WBC 5.76 4.0 - 12.4 K/cmm 03/16/2019 12:11 [facility] RBC 4.21 3.86 - 5.04 M/cmm 03/16/2019 12:11 [facility] Hemoglobin 13.8 11.6 - 15.2 gm/dl 03/16/2019 12:11 [facility] HCT 41.3 34.9 - 44.4 % 03/16/2019 12:11 [facility] MCV 98 81 - 98 fl 03/16/2019 12:11 [facility] MCH 32.8 26.7 - 33.3 pg 03/16/2019 12:11 [facility] MCHC 33.4 32.1 - 35.9 gm/dl 03/16/2019 12:11 [facility] RDW-CV 12.4 <14.7 % 03/16/2019 12:11 [facility] RDW-SD 44.4 <50.4 fl 03/16/2019 12:11 [facility] PLT 246 141 - 377 K/cmm 03/16/2019 12:11 [facility] MPV 10.3 9.5 - 12.7 fl 03/16/2019 12:11 [facility] % Neutrophils 49.5 % 03/16/2019 12:11 [facility] % Lymphocytes 38.5 % 03/16/2019 12:11 [facility] % Monocytes 8.7 % 03/16/2019 12:11 [facility] % Eosinophils 2.1 % 03/16/2019 12:11 [facility] % Basophils 1.0 % 03/16/2019 12:11 EDT [facility] % Immature Grans 0.2 % 03/16/2019 12:11 EDT [facility] ABS Neutrophils 2.85 2.20 - 8.85 K/cmm 03/16/2019 12:11 [facility] ABS Lymphs 2.22 1.09 - 3.30 K/cmm 03/16/2019 12:11 T [facility] ABS Monocytes 0.50 0.1 - 0.8 K/cmm 03/16/2019 12:11 EDT [facility] ABS Eosinophils 0.12 0.03 - 0.61 K/cmm 03/16/2019 12:11 T [facility] ABS Basophils 0.06 0.01 - 0.11 K/cmm 03/16/2019 12:11 [facility] ABS Immature Grans 0.01 0 - 0.06 K/cmm 03/16/2019 12:11 [facility] Type of Diff: Automated 03/16/2019 12:11 [facility] Blood specimen (specimen) BLOOD SPECIMEN / Unknown 03/16/2019 11:51 EDT 03/16/2019 11:57 EDT Augustina Colin MD PhD PACKAGES & DNA PROBE ORDERABLES Performing Organization Address City/State/[facility] Co de Phone Number [facility] [address] [place] [address] documented in this encounter Visit Diagnoses Diagnosis Metastatic breast cancer- Primary documented in this encounter Orders Lab Orders Without Results Count Last Ordered D ate First Ordered Date CA 27.29 1 03/12/2019 documented in this encounter Care Teams Cloth Layer Relationship Specialty Start Date End Date Linda Blancas MD [address] [place] [address] [address] [place] [address] PCP - General 01/06/11 documented as of this encounter
--- OUTSIDE RECORDS SUMMARY | 2024-03-20 15:03 | XMS_ITS | Encounter Summary ---
Author Organization [facility] Address [address] [place] [address] Care Team Providers Care Data Steward Name Role Phone Linda Blancas MD Primary Care Provider [phone] Encounter Details Date Type Department Care Team (Late st Contact Info) Description 02/08/2019 Orders Only [address] [address] Augustina Colin MD PhD Social History Tobacco Use Types Packs/Day [...] Contact Info) Description 04/02/2024 10:30 EDT Appointment [facility] Interventional Radiology Unit [address] [place] [address] [phone] 04/02/2024 15:15 EDT Office Visit [facility] Surgical Oncology - [address] [phone] Adolfo Carreno MD [address] [place] [address] [phone] 04/05/2024 9:30 EDT Telemedicine [facility] Palliative Care Services [address] [place] [address] [phone] Chichi Woods MD [address] [place] [address] [phone] 04/11/2024 15:00 EDT Telemedicine [facility] Hematology & Oncology - [address] [phone] Alisson Carreon MD [address] [place] [address] [phone] 04/13/2024 13:30 EDT Appointment [facility] Hematology & Oncology [address] [phone] 04/13/2024 14:00 EDT Appointment [facility] Hematology & Oncology [address] [phone] 04/16/2024 10:00 EST Telemedicine [facility] Palliative Care Services [address] [place] [address] [phone] Chichi Woods MD [address] [place] [address] [phone] 04/24/2024 9:00 EST Appointment [facility] Radiology CT Outpatient - [address] [phone] 04/24/2024 11:00 EST Appointment [facility] Breast Imaging - [facility] [address] [place], [place] 408441 04/27/2024 12:00 EST Appointment [facility] Hematology & Oncology - [address] [phone] 05/02/2024 15:00 EST Telemedicine [facility] Hematology & Oncology [address] [phone] Alisson Carreon MD [address] [place] [address], Level [address] [place] [phone] 05/04/2024 10:15 EST Ancillary Procedure [facility] Cardiology [place] [address] [place] [address] 05/04/2024 11:30 EST Appointment [facility] Hematology & Oncology [address] [address] 05/04/2024 12:00 EST Appointment [facility] Hematology & Oncology [address] [phone] 06/12/2024 13:00 EST Appointment [facility] Radiology CT - [address] [phone] documented as of this encounter Visit Diagnoses Not on filedocumented in this encounter Care Teams Data Steward Relationship Specialty Start Date End Date Linda Blancas MD [facility] [address] [place] [address] PCP - General 01/06/11 documented as of this encounter
--- OUTSIDE RECORDS SUMMARY | 2024-03-20 15:03 | XMS_ITS | Encounter Summary ---
Author Organization [facility] Address [address] [place] [address] Care Team Providers Care Ve Teacher Name Role Phone Linda Blancas MD Primary Care Provider [phone] Reason for Visit * Reason Comments Other Encounter Details Date Type Department Care Team (Late st Contact Info) Description 01/14/2019 Refill [facility] Hematology & Oncology - [facility] [address] [place], [place] 034081 Augustina Colin MD PhD Other Social History Tobacco Use [...] TABLET DAILY 90 Tab 3 01/15/2019 01/10/2020 documented in this encounter Miscellaneous Notes * Telephone Encounter - Quita Rob RN - 01/15/2019 0848 EDT Renewal prescription for letrozole has been processed through [facility]. Per the lastoffice note, . Continue letrozole 2.5 mg daily. documented in this encounter Plan of Treatment Upcoming Encounters Date Type Department Care Team (Late st Contact Info) Description 04/02/2024 10:30 EDT Appointment [facility] Interventional Radiology Unit [address] [place] [address] 04/02/2024 15:15 EDT Office Visit [facility] Surgical Oncology - [address] [phone] Adolfo Carreno MD [address] [place] [address] [phone] 04/05/2024 9:30 EDT Telemedicine [facility] - [facility] Palliative Care Services [address] [place] [address] [phone] Chichi Woods MD [address] [place] [address], [address] [phone] 04/11/2024 15:00 EDT Telemedicine [facility] Hematology & Oncology [address] [phone] Alisson Carreon MD [address] [place] [address] [phone] 04/13/2024 13:30 EDT Appointment [facility] Hematology & Oncology [address] [phone] 04/13/2024 14:00 EDT Appointment [facility] Hematology & Oncology [address] [phone] 04/16/2024 10:00 EST Telemedicine [facility] - [facility] Palliative Care Services [address] [place] [address] [phone] Chichi Woods MD [address] [place] [address] [phone] 04/24/2024 9:00 EST Appointment [facility] Radiology CT Outpatient - [address] [phone] 04/24/2024 11:00 EST Appointment [facility] Breast Imaging - [facility] [address] [place], [place] [phone] 04/27/2024 12:00 EST Appointment [facility] Hematology & Oncology [address] [phone] 05/02/2024 15:00 EST Telemedicine [facility] Hematology & Oncology - [address] [phone] Alisson Carreon MD [address] [place] [address], Level [address] [place] [phone] 05/04/2024 10:15 EST Ancillary Procedure [facility] Cardiology - [place] [address] 05/04/2024 11:30 EST Appointment [facility] Hematology & Oncology [address] [phone] 05/04/2024 12:00 EST Appointment [facility] Hematology & Oncology - [address] [address] 06/12/2024 13:00 EST [facility] Rad[facility] - [address] [address] documented as of this encounter Visit Diagnoses Diagnosis Personal history of malignant neoplasm of breast Breast lump Lump or mass in breast documented in this encounter Discontinued Medications Medication Sig Discontinue Reason Start Date End Da te letrozole (FEMARA) 2.5 mg tabletIndications:Person al history of malignant neoplasm of breast,Breast lump TAKE 1 TABLET DAILY Reorder 01/16/2018 9 documented as of this encounter Care Teams Ve Teacher Relationship Specialty Start Date End Date Linda Blancas MD [facility] [address] [place] [address] PCP - General 01/06/11 documented as of this encounter
--- OUTSIDE RECORDS SUMMARY | 2024-03-20 15:03 | XMS_ITS | Encounter Summary ---
Author Organization [facility] Address [address] [place] [address] Care Team Providers Care Financial Aid Counselor Name Role Phone Linda Blancas MD Primary Care Provider [phone] Reason for Visit * Reason Comments Tissue Wait Staff Fill TE fill Encounter Details Date Type Department Care Team (Late st Contact Info) Description 11/15/2018 13:20 EDT Office Visit [facility] Plastic, Reconstructive & Cosmetic Surgery - [address], [address] [place], [place] [phone] Karen Singh PA-C [address] [facility] [address] [place] [address] S/P breast reconstruction, right (Primary Dx) [...] encounter Progress Notes * Karen Guerra - 11/15/2018 1320 EDT SUBJECTIVE: Sunshine Pleitez returns in follow up for right Tissue presser first fill today. No acute complaints of injury or illness reported today. OBJECTIVE: On examination, she is in no distress. Her right breast incision is healing well, without sign of infection or dehiscence. Right breast skin is void of rash and infection. TE is expanding nicely. IMPRESSION: Doing well; PO ~10 weeks PLAN: Normal healing. TE fill was completed today as planned following verbal consent. TE port was located with magnet and marked. Right breast was prepped with Chlorhexidine. In sterilefashion, 75 cc of injectable saline was entered into the presser first. Site was cleansed with alcohol pad and a spot Band-Aid was put into place. Current volume now 575 cc in 650 cc presser first. Follow up in 2-3 weeks for next fill. TANK Dawn 11/21/2018 14:46 documented in this encounter Plan of Treatment Upcoming Encounters Date Type Department Care Team (Late st Contact Info) Description 04/02/2024 10:30 EDT Appointment [facility] Interventional Radiology Unit [address] [place] [address] [phone] 04/02/2024 15:15 EDT Office Visit [facility] Surgical Oncology - [facility] [address] [place], [place] [address] Adolfo Carreno MD 111 [facility], Level 2 [place] [phone] 04/05/2024 9:30 EDT Telemedicine [facility] Palliative Care Services [address] [place] [address] [phone] Chichi Woods MD [address] [place] [phone] 04/11/2024 15:00 EDT Telemedicine [facility] Hematology & Oncology [address] [phone] Alisson Carreon MD [address] [place] [address], Level 2 [place] [phone] 04/13/2024 13:30 EDT Appointment [facility] Hematology & Oncology [address] [phone] 04/13/2024 14:00 EDT Appointment [facility] Hematology & Oncology [address] [phone] 04/16/2024 10:00 EST Telemedicine [facility] Palliative Care Services [address] [place] [address] 470261 Chichi Woods MD [address] [place] [address] [phone] 04/24/2024 9:00 EST Appointment [facility] Radiology CT Outpatient - [address] [phone] 04/24/2024 11:00 EST Appointment [facility] Breast Imaging - [address] [phone] 04/27/2024 12:00 EST Appointment [facility] Hematology & Oncology [address] [phone] 05/02/2024 15:00 EST Telemedicine [facility] Hematology & Oncology [address] [phone] Alisson Carreon MD [address] [place] [address], Level 2 [place] [phone] 05/04/2024 10:15 EST Ancillary Procedure [facility] Cardiology - [address] [place], [place] [phone] 05/04/2024 11:30 EST Appointment [facility] Hematology & Oncology [address] [phone] 05/04/2024 12:00 EST Appointment [facility] Hematology & Oncology [address] [id number] 06/12/2024 13:00 EST Appointment [facility] Radiology CT - [address] [phone] documented as of this encounter Visit Diagnoses Diagnosis S/P breast reconstruction, right- Primary Breast replaced by other means documented in this encounter Care Teams Financial Aid Counselor Relationship Specialty Start Date End Date Linda Blancas MD [address] [place] [address] 30 [place] [address] PCP - General 01/06/11 documented as of this encounter
--- OUTSIDE RECORDS SUMMARY | 2024-03-20 15:03 | XMS_ITS | Encounter Summary ---
Author Organization [facility] Address [address] [place] [address] Care Team Providers Care Alternative Energy Technician Name Role Phone Linda Blancas MD Primary Care Provider [phone] Reason for Visit * Reason Comments Follow-up Encounter Details Date Type Department Care Team (Late st Contact Info) Description 11/15/2018 10:30 EDT Office Visit [facility] Hematology & Oncology - [facility] [address] [place] [address] Augustina Colin MD PhD Metastatic breast cancer [...] Sign Reading Time Taken Comments Blood Pressure 135/76 11/15/2018 1049 EDT Pulse 78 11/15/2018 1049 EDT Temperature 36.2 ??C (97.1 ??F) 11/15/2018 1049 EDT Respiratory Rate 18 11/15/2018 1049 EDT Oxygen Saturation 98% 11/15/2018 1049 EDT Inhaled Oxygen Concentration - - Weight 62.1 kg (137 lb) 11/15/2018 1049 EDT Height 154.9 cm (5' 0.98) 11/15/2018 1049 EDT Body Mass Index 25.9 11/15/2018 1049 EDT documented in this encounter Functional Status [...] Notes * Augustina Colin MD, MD - 11/15/2018 1030 EDT REASON FOR OFFICE VISIT: Evaluation of side effects while receiving letrozole ?? PROBLEM LIST: 1. 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 a. ??Ultrasound performed in [place]??identifying an irregular heterogeneous soft tissue mass measuring 1.2 x 1.2 x 1.5 cm. ?? 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 ??HER-2 1+ by IHC. ??ANNE [...] right breast tumor/revision and placement of tissue pmo lead. ??1.9 cm tumor at time of surgery, well differentiated, with LVI present, and negative margins. ?? 2. ??Restaging scans: ??CT scan of the chest completed 11/07/18 stable pulmonary nodules; nuclear bone scan with no osseous metastasis 3. ??DCIS in 2004 at the age [...] health issues: ??gastroesophageal reflux disease. SUBJECTIVE: Ms Randy stone presents clinic today to discuss side effects related to letrozole and results from recent scans. She is relieved to hear that her cancer has not progressed. She toleratesthe letrozole quite well. She has moderate hot flashes but they do not interfere with her function.She is not noticed any worsening joint aches or discomfort. She denies problems with vaginal dryness. She has good range of motion. She has some additional pills required in her pmo lead and then at some point in the 6 months or so she will have her implant placed. She notes mild cough, occasional headaches, decreased libido ROS: A 10 point review of systems was obtained. Other than described in the subjective. The remaining review of systems is discussed and is negative. Presents the clinic alone today. Medications Prior to Today's Visit Medication Sig [...] 12 mg (Patient not taking: Reported on 09/07/2018) ??? letrozole (FEMARA) 2.5 mg tablet TAKE 1 TABLET DAILY ??? MULTIVITS W-CA,FE,OTHER MIN (WOMEN'S DAILY FORMULA ORAL) Take by mouth daily. ??? mv-mn/C/glutamin/lysin/jrrc027 (AIRBORNE, ASCORBATE SODIUM, ORAL) Take by mouth. [...] Use Topics ??? Alcohol use: Yes Alcohol/week: 0.6 - 1.8 oz Types: 1 - 3 Glasses of wine per week Presents the clinic alone. She has been busy with family issues. She is physically active. Objective: There were no vitals taken for this visit. Estimated body mass index is 25.51 kg/m?? as calculated from the following: Height as of 3/12/19: 154.9 cm (61). Weight as of 08/22/18: 61.2 kg (135 lb). ECOG Performance Status: [...] ABDOMEN: Soft, non-tender, non distended, no hepatosplenomegaly appreciated, though exam difficult secondary to body habitis. EXTREMITIES: No clubbing, cyansis or edema; No calf tenderness NEURO: Alert and oriented x 3; Grossly neurologically intact DIAGNOSTIC DATA No visits with results within 1 Day(s) from this visit. Latest known visit with results is: Phlebotomy Only on 11/07/2018 Component Date Value Ref Range Status ? ? CA 27.29 11/07/2018 22.7 <38 U/mL Final Comment: Serum CA 27.29 concentration should not be interpreted as absolute evidence for the presence or absence of malignant disease. Assayed utilizing i-drive ([employer]) chemiluminescent technology. Values obtained by using different assay methods cannot be used interchangeably. ASSESSMENT: ??Ms Bernstein is a 58-year-old female with metastatic breast cancer.?? The largestarea of disease on the ??lateral aspect of the breast was removed at the time of implant removal. Restaging CT scans indicate stable pulmonary nodules and nuclear bone scan indicates no evidence of bone metastasis. We will continue letrozole ? PLAN: 1. Continue letrozole 2.5 mg daily. ?? 2.??Consider restaging CT scan Apr 2019? 3. ??Follow-up return in 4mos ? Patient is encouraged call with any intercurrent concerns or problems. ?? Augustina Colin MD 11/15/2018 10:39 documented in this encounter Plan of Treatment Upcoming Encounters Date Type Department Care Team (Late st Contact Info) Description 04/02/2024 10:30 EDT Appointment [facility] Interventional Radiology Unit [address] [place] [address] [phone] 04/02/2024 15:15 EDT Office Visit [facility] Surgical Oncology - [address] [phone] Adolfo Carreno MD [address] [place] [address] [phone] 04/05/2024 9:30 EDT Telemedicine [facility] Palliative Care Services [address] [place] [address] [phone] Chichi Woods MD [address] [place] [address] [phone] 04/11/2024 15:00 EDT Telemedicine [facility] Hematology & Oncology - [address] [address] Alisson Carreon MD [address] [place] [address] [phone] 04/13/2024 13:30 EDT Appointment [facility] Hematology & Oncology - [address] [phone] 04/13/2024 14:00 EDT Appointment [facility] Hematology & Oncology - [address] [address] 04/16/2024 10:00 EST Telemedicine [facility] Palliative Care Services [address] [place] [address] [phone] Chichi Woods MD [address] [place] [address] [phone] 04/24/2024 9:00 EST Appointment [facility] Radiology CT Outpatient - [address] [address] 04/24/2024 11:00 EST Appointment [facility] Breast Imaging - [address] [place] [address] 04/27/2024 12:00 EST Appointment [facility] Hematology & Oncology - [address] [address] 05/02/2024 15:00 EST Telemedicine [facility] Hematology & Oncology [address] [phone] Alisson Carreon MD [address] [place] [address], Level [address] [place] [phone] 05/04/2024 10:15 EST Ancillary Procedure [facility] Cardiology [place] [address] 05/04/2024 11:30 EST Appointment [facility] Hematology & Oncology [address] [phone] 05/04/2024 12:00 EST Appointment [facility] Hematology & Oncology [address] [phone] 06/12/2024 13:00 EST Appointment [facility] Radiology CT - [address] [phone] documented as of this encounter Visit Diagnoses Diagnosis Metastatic breast cancer- Primary documented in this encounter Care Teams Alternative Energy Technician Relationship Specialty Start Date End Date Linda Blancas MD [address] [place] [address] [address] [place] [address] PCP - General 01/06/11 documented as of this encounter
--- OUTSIDE RECORDS SUMMARY | 2024-03-20 15:03 | XMS_ITS | Encounter Summary ---
Author Organization [facility] Address [address] [place] [address] Care Team Providers Care Passenger Car Cleaning Supervisor Name Role Phone Linda Blancas MD Primary Care Provider [phone] Reason for Visit * Reason Onset Date Comments Post-OP Follow Up 09/01/2018 Encounter Details Date Type Department Care Team (Late st Contact Info) Description 09/01/2018 Telephone [facility] Plastic, Reconstructive & Cosmetic Surgery - [address], [address] [place], [place] [phone] Cristy Hamlin RN [address] [address] Post-OP Follow Up Social History Tobacco [...] encounter Miscellaneous Notes * Telephone Encounter - Cristy Rios RN - 09/01/2018 1114 EDT Post op follow up phone call was made 09/01/18 Patient condition was discuss with Sunshine Type of Surgery:removal of right breast implant Surgeon:Tylor Boss MD Date of Surgery:08/30/18 Appetite:no nausea and no vomiting normal Bowels: bm today Activity: wnl Drains: Drains none Incision and dressings:intact Pain:well controlled 10/20 currently. Woke up at 10am. ABX:Yes Fever:no fever or chills Voiding:wnl Problems/ Concerns None. Resting well and feeling good. Additional Info / Patient education Call with any questions or concerns. Providers are available 03/01. Date of post-op/ follow up visit 09/07/18 CRISTY RIOS RN documented in this encounter Plan of Treatment Upcoming Encounters Date Type Department Care Team (Late st Contact Info) Description 04/02/2024 10:30 EDT Appointment [facility] Interventional Radiology Unit [address] [place] [address] [phone] 04/02/2024 15:15 EDT Office Visit [facility] Surgical Oncology - [facility] [address] [place], [place] [phone] Adolfo Carreno MD 111 [facility], Level [address] [place] [phone] 04/05/2024 9:30 EDT Telemedicine [facility] - [facility] Palliative Care Services [address] [place], [place] [phone] Chichi Woods MD [address] [place] [address] [address] [place] [phone] 04/11/2024 15:00 EDT Telemedicine [facility] Hematology & Oncology - [address] 114161 Alisson Carreon MD [address] [place] [address] 2 [place] [phone] 04/13/2024 13:30 EDT Appointment [facility] Hematology & Oncology - [address] [phone] 04/13/2024 14:00 EDT Appointment [facility] Hematology & Oncology [address] [phone] 04/16/2024 10:00 EST Telemedicine [facility] Palliative Care Services [address] [place] [address] [phone] Chicih Woods MD [address] [place] [address] [phone] 04/24/2024 9:00 EST Appointment [facility] Radiology CT Outpatient - [address] [phone] 04/24/2024 11:00 EST Appointment [facility] Breast Imaging - [address] [phone] 04/27/2024 12:00 EST Appointment [facility] Hematology & Oncology - [address] [phone] 05/02/2024 15:00 EST Telemedicine [facility] Hematology & Oncology - [address] 510361 Alisson Carreon MD [address] [place] [address] 2 [place] [phone] 05/04/2024 10:15 EST Ancillary Procedure [facility] Cardiology - [address] [place] [address] 05/04/2024 11:30 EST Appointment [facility] Hematology & Oncology - [address] [phone] 05/04/2024 12:00 EST Appointment [facility] Hematology & Oncology - [address] [phone] 06/12/2024 13:00 EST Appointment [facility] Radiology CT - [address] [phone] documented as of this encounter Visit Diagnoses Not on filedocumented in this encounter Care Teams Passenger Car Cleaning Supervisor Relationship Specialty Start Date End Date Linda Blancas MD [facility] [address] [place] [address] PCP - General 01/06/11 documented as of this encounter
--- OUTSIDE RECORDS SUMMARY | 2024-03-20 15:03 | XMS_ITS | Encounter Summary ---
Author Organization [facility] Address [address] [place] [address] Care Team Providers Care Tax Collector Name Role Phone Linda Blancas MD Primary Care Provider [phone] Reason for Visit * Reason Onset Date Comments Follow-up 08/24/2018 Encounter Details Date Type Department Care Team (Late st Contact Info) Description 08/24/2018 Telephone [facility] Hematology & Oncology - [facility] [address] [place] [address] Augustina Colin MD PhD Follow-up Social History Tobacco Use Types Packs/Day [...] Telephone Encounter - Quita Rob RN - 08/24/2018 1516 EDT Ms Pleitez is agreeable to tumor markers drawn at our office. Pt made aware these can be drawn on her appt days and pt can be called with results or pt can have it drawn prior. * Telephone Encounter - Kiana Avina - 08/24/2018 1340 EDT Patient would like a call back from nurse regarding e-mail sent about tumor marker. Please call. documented in this encounter Plan of Treatment Upcoming Encounters Date Type Department Care Team (Late st Contact Info) Description 04/02/2024 10:30 EDT Appointment [facility] Interventional Radiology Unit [address] [place], [place] [address] 04/02/2024 15:15 EDT Office Visit [facility] Surgical Oncology - [address] [phone] Adolfo Carreno MD 111 [facility], Level [address] [place] [phone] 04/05/2024 9:30 EDT Telemedicine [facility] - [facility] Palliative Care Services [address] [place], [place] 000871 Chichi Woods MD [address] [facility] [address] [place] [phone] 04/11/2024 15:00 EDT Telemedicine [facility] Hematology & Oncology - [facility] [address] [place], [place] 2203[address] Alisson Carreon MD [address] [place] [address], [facility] [address] [place] [phone] 04/13/2024 13:30 EDT Appointment [facility] Hematology & Oncology [address] [phone] 04/13/2024 14:00 EDT Appointment [facility] Hematology & Oncology - [address] [phone] 04/16/2024 10:00 EST Telemedicine [facility] - [facility] Palliative Care Services [address] [place] [address] [phone] Chichi Woods MD [address] [place] [address] [phone] 04/24/2024 9:00 EST Appointment [facility] Radiology CT Outpatient - [address] [phone] 04/24/2024 11:00 EST Appointment [facility] Breast Imaging - [address] [phone] 04/27/2024 12:00 EST Appointment [facility] Hematology & Oncology - [address] [phone] 05/02/2024 15:00 EST Telemedicine [facility] Hematology & Oncology - [address] [phone] Alisson Carreon MD [address] [place] [address], [facility] [address] [place] [phone] 05/04/2024 10:15 EST Ancillary Procedure [facility] Cardiology - [address] [place], [place] [phone] 05/04/2024 11:30 EST Appointment [facility] Hematology & Oncology [address] [address] 05/04/2024 12:00 EST Appointment [facility] Hematology & Oncology [address] [address] 06/12/2024 13:00 EST Appointment [facility] Radiology CT - [address] [address] documented as of this encounter Visit Diagnoses Diagnosis Personal history of malignant neoplasm of breast- Primary documented in this encounter Care Teams Tax Collector Relationship Specialty Start Date End Date Linda Blancas MD [facility] [address] [place] [address] PCP - General 01/06/11 documented as of this encounter
--- OUTSIDE RECORDS SUMMARY | 2024-03-20 15:03 | XMS_ITS | Encounter Summary ---
Author Organization [facility] Address [address] [place] [address] Care Team Providers Care Harpooner Name Role Phone Linda Blancas MD Primary Care Provider [phone] Reason for Visit * Reason Comments Other TE fill Encounter Details Date Type Department Care Team (Latest Contact Info) Description 01/04/2019 9:45 EDT Office Visit [facility] Plastic, Reconstructive & Cosmetic Surgery - [address], [address] [place] [id number] Tylor Boss MD [address] [address] S/P breast reconstruction (Primary Dx) [...] Progress Notes * Tylor Boss MD - 01/04/2019 0945 EDT Sunshine is here for fill of her right tissue curtain worker. After verbal informed consent was obtained the port was located magnetically and marked. A chloraprep was used for sterilization. Using standard sterile technique and a closed system the port was accessed and the curtain worker filled with 75 cc of injectable saline. The patient tolerated the procedure well. Access site was dressed with a spot bandaid to be removed tomorrow. Totals were recorded on the flow sheet. She now has a fill of 725 cc's in her 650 cc curtain worker. Signs and symptoms of infection were discussed. She will start the consolidation phase. Next appointment will be a preoperative appoint for exchange. documented in this encounter Plan of Treatment Upcoming Encounters Date Type Department Care Team (Late st Contact Info) Description 04/02/2024 10:30 EDT Appointment [facility] Interventional Radiology Unit [address] [place] [address] [phone] 04/02/2024 15:15 EDT Office Visit [facility] Surgical Oncology - [facility] [address], [place] [phone] Adolfo Carreno MD 111 [facility], Level 2 [place] [address] 04/05/2024 9:30 EDT Telemedicine [facility] - [facility] Palliative Care Services [address], [place] [phone] Chichi Woods MD 111 [facility], [address] [phone] 04/11/2024 15:00 EDT Telemedicine [facility] Hematology & Oncology - [address] [phone] Alisson Carreon MD [address] [place] [address], [facility] 2 [place] [phone] 04/13/2024 13:30 EDT Appointment [facility] Hematology & Oncology - [address] 464351 04/13/2024 14:00 EDT Appointment [facility] Hematology & Oncology [address] [phone] 04/16/2024 10:00 EST Telemedicine [facility] - [facility] Palliative Care Services [address] [place] [address] 795171 Chichi Woods MD [address] [place] [phone] 04/24/2024 9:00 EST Appointment [facility] Radiology CT Outpatient - [address] 847751 04/24/2024 11:00 EST Appointment [facility] Breast Imaging - [facility] S [address] 271871 04/27/2024 12:00 EST Appointment [facility] Hematology & Oncology - [address] [phone] 05/02/2024 15:00 EST Telemedicine [facility] Hematology & Oncology - [address] 474441 Alisson Carreon MD [address] [place] [address], [facility] 2 [place] [phone] 05/04/2024 10:15 EST Ancillary Procedure [facility] Cardiology - [address] [place] [address] 05/04/2024 11:30 EST Appointment [facility] Hematology & Oncology [address] 019071 05/04/2024 12:00 EST Appointment [facility] Hematology & Oncology [address] [address] 06/12/2024 13:00 EST Appointment [facility] Radiology CT [address] 429811 documented as of this encounter Visit Diagnoses Diagnosis S/P breast reconstruction- Primary Breast replaced by other means documented in this encounter Care Teams Harpooner Relationship Specialty Start Date End Date Linda Blancas MD [facility] [address] [place] [address] PCP - General 01/06/11 documented as of this encounter
--- OUTSIDE RECORDS SUMMARY | 2024-03-20 15:03 | XMS_ITS | Encounter Summary ---
Author Organization [facility] Address [address] [place] [address] Care Team Providers Care Snuff Grinder Name Role Phone Linda Blancas MD Primary Care Provider [phone] Reason for Visit * Reason Onset Date Comments Appointment Related 01/16/2019 SEE NOTE Encounter Details Date Type Department Care Team (Late st Contact Info) Description 01/16/2019 Telephone [facility] OBGYN Services - [facility] [address] [place] [address] Quita Babb PA-C 111 [facility], Level 2 [place] [address] Appointment Related (SEE NOTE) Social History Tobacco Use Types Packs/Day Years [...] encounter Miscellaneous Notes * Telephone Encounter - Sera Benitez - 01/16/2019 1341 EDT Reason for appointment or cancellation as described by patient: YEARLY WICKETT cLINIC Date of appointment: 04.13.19 @ 1000 Sera Benitez 01/16/2019 13:42 documented in this encounter Plan of Treatment Upcoming Encounters Date Type Department Care Team (Late st Contact Info) Description 04/02/2024 10:30 EDT Appointment [facility] Interventional Radiology Unit [address] [place] [phone] 04/02/2024 15:15 EDT Office Visit [facility] Surgical Oncology - [address] 960251 Adolfo Carreno MD [address] [place] [phone] 04/05/2024 9:30 EDT Telemedicine [facility] - [facility] Palliative Care Services [address] [place] [address] 179201 Chichi Woods MD [address] [place] [address], [address] [phone] 04/11/2024 15:00 EDT Telemedicine [facility] Hematology & Oncology - [address] [address] Alisson Carreon MD [address] [place] [address] 2 [place] [phone] 04/13/2024 13:30 EDT Appointment [facility] Hematology & Oncology [address] 749151 04/13/2024 14:00 EDT Appointment [facility] Hematology & Oncology [address] [address] 04/16/2024 10:00 EST Telemedicine [facility] - [facility] Palliative Care Services [address] [place] [address] [phone] Chichi Woods MD [address] [place] [address], [address] [phone] 04/24/2024 9:00 EST Appointment [facility] Radiology CT Outpatient - [address] 229261 04/24/2024 11:00 EST Appointment [facility] Breast Imaging - [facility] S [address] 126981 04/27/2024 12:00 EST Appointment [facility] Hematology & Oncology [address] 805411 05/02/2024 15:00 EST Telemedicine [facility] Hematology & Oncology - [address] [address] Alisson Carreon MD [address] [place] [address], [facility] 2 [place] [phone] 05/04/2024 10:15 EST Ancillary Procedure [facility] Cardiology [place] [address] [place] [address] 05/04/2024 11:30 EST Appointment [facility] Hematology & Oncology [address] 837580 [phone] 05/04/2024 12:00 EST Appointment [facility] Hematology & Oncology - [address] [address] 06/12/2024 13:00 EST [facility]ointment [facility] Rad[facility] - [facility] [address] [place] [address] documented as of this encounter Visit Diagnoses Not on filedocumented in this encounter Care Teams Snuff Grinder Relationship Specialty Start Date End Date Linda Blancas MD [facility] [address] [place] [address] PCP - General 01/06/11 documented as of this encounter
--- OUTSIDE RECORDS SUMMARY | 2024-03-20 15:03 | XMS_ITS | Encounter Summary ---
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 Encounter Details Date Type Department Care Team (Late st Contact Info) Description 10/17/2018 13:00 EDT Office Visit [facility] Plastic, Reconstructive & Cosmetic Surgery - [address], [address] [place], [place] [phone] Karen Singh PA-C [address] [facility] [address] [place] [address] S/P breast reconstruction, right (Primary [...] this encounter Progress Notes * Karen Singh PA - 10/17/2018 1300 EDT SUBJECTIVE: Sunshine Pleitez returns in follow up from Removal of implant with extensive lattice capsulotomy and placement of tissue insurance verification representative on 08/30/2018. She received her first TE fill on 09/28/[address] Boss. Current fill volume is 425 cc. No acute complaints of injury or illness reported today. OBJECTIVE: On examination, she is in no distress. Her right breast incision is healing well, without sign of infection or dehiscence. Right breast skin is void of rash and infection. TE is expanding nicely. IMPRESSION: Doing well; PO 7 weeks . PLAN: Normal healing. TE fill was completed today as planned following verbal consent. TE port was located with magnet and marked. Right breast was prepped with Chlorhexidine. In sterilefashion, 75 cc of injectable saline was entered into the insurance verification representative. Site was cleansed with alcohol pad and a spot Band-Aid was put into place. Current volume now 500 cc in 650 cc insurance verification representative. Follow up in 2-3 weeks for next fill. TANK Dawn 10/17/2018 13:24 documented in this encounter Plan of Treatment Upcoming Encounters Date Type Department Care Team (Late st Contact Info) Description 04/02/2024 10:30 EDT Appointment [facility] Interventional Radiology Unit [address] [place] [address] 04/02/2024 15:15 EDT Office Visit [facility] Surgical Oncology - [facility] [address] [place] [address] Adolfo Carreno MD 111 [facility], Level 2 [place] [phone] 04/05/2024 9:30 EDT Telemedicine [facility] Palliative Care Services [address] [place] [address] 386301 Chichi Woods MD [address] [place] [phone] 04/11/2024 15:00 EDT Telemedicine [facility] Hematology & Oncology - [address] 176001 Alisson Carreon MD [address] [place] [address] 2 [place] [phone] 04/13/2024 13:30 EDT Appointment [facility] Hematology & Oncology - [address] [phone] 04/13/2024 14:00 EDT Appointment [facility] Hematology & Oncology [address] 917331 04/16/2024 10:00 EST Telemedicine [facility] Palliative Care Services [address] [place] [address] Chichi Woods MD [address] [place] [phone] 04/24/2024 9:00 EST Appointment [facility] Radiology CT Outpatient - [address] [id number] 04/24/2024 11:00 EST Appointment [facility] Breast Imaging - [address] [phone] 04/27/2024 12:00 EST Appointment [facility] Hematology & Oncology [address] [address] 05/02/2024 15:00 EST Telemedicine [facility] Hematology & Oncology [address] 730321 Alisson Carreon MD [address] [place] [address], Level 2 [place] [phone] 05/04/2024 10:15 EST Ancillary Procedure [facility] Cardiology - [address] [place] [address] 05/04/2024 11:30 EST Appointment [facility] Hematology & Oncology [address] 079061 05/04/2024 12:00 EST Appointment [facility] Hematology & Oncology [address] 360991 06/12/2024 13:00 EST Appointment [facility] Radiology CT - [address] [phone] documented as of this encounter Visit Diagnoses Diagnosis S/P breast reconstruction, right- Primary Breast replaced by other means documented in this encounter Care Teams Ice Cream Shop Associate Relationship Specialty Start Date End Date Linda Blancas MD [address] [place] [place] [address] 30 [place] [address] PCP - General 01/06/11 documented as of this encounter
--- OUTSIDE RECORDS SUMMARY | 2024-03-20 15:03 | XMS_ITS | Encounter Summary ---
Author Organization [facility] Address [address] [place] [address] Care Team Providers Care Sedimentationist Name Role Phone Linda Blancas MD Primary Care Provider [phone] Reason for Referral * Radiology Services (Routine) - Closed Specialty Diagnoses / Procedures Referred By Contac t Referred To Contact Diagnoses Personal history of malignant neoplasm of breast Procedures CT CHEST W CONTRAST Augustina Colin MD PhD Referral ID Status Reason Start Date Expiration Date Visits Re quested Visits Authorized [id number] Closed 08/17/2018 1 1 Reason for Visit * Reason Onset Date Comments Orders (Non Pre-visit) 08/17/2018 Encounter Details Date Type Department Care Team (Late st Contact Info) Description 08/17/2018 Orders Only [facility] Hematology & Oncology - Main [place] [address] [place] [address] Quita Rob RN Personal history of malignant neoplasm of [...] [facility] Interventional Radiology Unit [address] [place] [address] [phone] 04/02/2024 15:15 EDT Office Visit [facility] Surgical Oncology - [address] [phone] Adolfo Carreno MD 111 [facility] 2 [place] [phone] 04/05/2024 9:30 EDT Telemedicine [facility] - [facility] Palliative Care Services [address] [place], [place] [phone] Chichi Woods MD 111 [facility], [address] [phone] 04/11/2024 15:00 EDT Telemedicine [facility] Hematology & Oncology - [address] [phone] Alisson Carreon MD [address] [place] [address] 2 [place] [phone] 04/13/2024 13:30 EDT Appointment [facility] Hematology & Oncology - [address] [address] 04/13/2024 14:00 EDT Appointment [facility] Hematology & Oncology [address] 838111 04/16/2024 10:00 EST Telemedicine [facility] - [facility] Palliative Care Services [address] [place] [address] [phone] Chichi Woods MD [address] [place] [phone] 04/24/2024 9:00 EST Appointment [facility] Radiology CT Outpatient - [address] [phone] 04/24/2024 11:00 EST Appointment [facility] Breast Imaging - [facility] S [address] [phone] 04/27/2024 12:00 EST Appointment [facility] Hematology & Oncology - [address] 629771 05/02/2024 15:00 EST Telemedicine [facility] Hematology & Oncology [address] 241281 Alisson Carreon MD [address] [place] [address], Level [address] [place] [phone] 05/04/2024 10:15 EST Ancillary Procedure [facility] Cardiology [place] [address] 05/04/2024 11:30 EST Appointment [facility] Hematology & Oncology [address] 384001 05/04/2024 12:00 EST Appointment [facility] Hematology & Oncology [address] 832161 06/12/2024 13:00 [facility] Radiology CT - Main [address] [address] documented as of this encounter Procedures Procedure Name Priority Date/Time Associated Diagnosis Comments CT CHEST W CONTRAST Routine 11/07/2018 1 2:36 EDT Personal history of malignant neoplasm of breast documented in this encounter Results * CT CHEST W CONTRAST (11/07/2018 12:36 EDT) Anatomical Region Laterality Modality Other 11/07/2018 12:3 6 EDT 11/07/2018 14:42 EDT Narrative 11/07/2018 14:[address] CHEST W CONTRAST ??11/07/2018 12:36 PM Clinical History/Comments: Z85.3-Personal history of malignant neoplasm of [id number]; restaging for breast cancer Technique: A single breath-hold helical [...] a dedicated PACS workstation for analysis. Comparison: 05/18/2018 and 10/12/2017 Findings: CT of the chest performed after IV contrast administration. Lower neck: No significant abnormality. The asymmetric, nonenlarged left supraclavicular node is stable. Mediastinum: No significant abnormality Pleura: No abnormality Lungs: As on the study from May 2018, there are tiny nodules in both lungs. There appear to be at least two new 2 mm nodules in the upper lobes and a small nodule in the left upper lobe has slightly enlarged to 3 mm. Upper lobe location makes it unlikely that these are metastases, but they should be followed with the patient's routine surveillance. Upper abdomen (limited to upper abdomen, not optimized for abdominal imaging):Unremarkable Bones and soft tissues of the chest wall: The patient has had right mastectomy with subpectoral tissue auto heater mechanic. A subpectoral implant is present on the left. There are no enlarged or enlarging subpectoral, internal mammary or axillary lymph nodes. 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 Impression: No definitive evidence of metastatic disease in the chest Procedure Note Lewis Cooley MD, MD - 11/07/2018 CT CHEST W CONTRAST 11/07/2018 12:36 PM Clinical History/Comments: Z85.3-Personal history of malignant neoplasm of [id number]; restaging for breast cancer Technique: A single breath-hold helical CT acquisition was performed through the chest on a multidetector-row scanner with a reconstructed slice thickness of 3 mm and retrospectively reconstructed 0.9 mm thick sections with 0.45 mm overlapping intervals. The scans were obtained from the lung apices through the bases during the intravenous administration of 70-100 cc of 370 mg% nonionic contrast injected at a rate of 2 cc/second. Scans were reviewed on a dedicated PACS workstation for analysis. Comparison: 05/18/2018 and 10/12/2017 Findings: CT of the chest performed after IV contrast administration. Lower neck: No significant abnormality. The asymmetric, nonenlarged left supraclavicular node is stable. Mediastinum: No significant abnormality Pleura: No abnormality Lungs: As on the study from May 2018, there are tiny nodules in both lungs. There appear to be at least two new 2 mm nodules in the upper lobes and a small nodule in the left upper lobe has slightly enlarged to 3 mm. Upper lobe location makes it unlikely that these are metastases, but they should be followed with the patient's routine surveillance. Upper abdomen (limited to upper abdomen, not optimized for abdominal imaging):Unremarkable Bones and soft tissues of the chest wall: The patient has had right mastectomy with subpectoral tissue auto heater mechanic. A subpectoral implant is present on the left. There are no enlarged or enlarging subpectoral, internal mammary or axillary lymph nodes. 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 Impression: No definitive evidence of metastatic disease in the chest Augustina Colin MD PhD IMG CT ORDERABLES documented in this encounter Visit Diagnoses Diagnosis Personal history of malignant neoplasm of breast- Primary documented in this encounter Care Teams Sedimentationist Relationship Specialty Start Date End Date Linda Blancas MD [facility] [address] [place] [address] PCP - General 01/06/11 documented as of this encounter
--- OUTSIDE RECORDS SUMMARY | 2024-03-20 15:03 | XMS_ITS | Encounter Summary ---
Author Organization [facility] Address [address] [place] [address] Care Team Providers Care Agricultural Research Engineer Name Role Phone Linda Blancas MD Primary Care Provider [phone] Reason for Visit * Reason Onset Date Comments Appointment Related 12/25/2018 Encounter Details Date Type Department Care Team (Late st Contact Info) Description 12/25/2018 Telephone [facility] OBGYN Services - [facility] [address] [place] [address] Quita Babb PA-C 111 [facility], Level 2 [place] [address] Appointment Related Social History Tobacco [...] encounter Miscellaneous Notes * Telephone Encounter - Bozena Sanderson - 12/25/2018 1238 EDT Reason for appointment scheduled: yrl Date of appointment: 02/20 Confirmed phone number Bozena Sanderson 12/25/2018 12:39 documented in this encounter Plan of Treatment Upcoming Encounters Date Type Department Care Team (Late st Contact Info) Description 04/02/2024 10:30 EDT Appointment [facility] Interventional Radiology Unit [address] [place] [address] 04/02/2024 15:15 EDT Office Visit [facility] Surgical Oncology - [address] 338491 Adolfo Carreno MD [address] [place] [phone] 04/05/2024 9:30 EDT Telemedicine [facility] Palliative Care Services [address] [place] [address] [phone] Chichi Woods MD [address] [place] [address], [address] [phone] 04/11/2024 15:00 EDT Telemedicine [facility] Hematology & Oncology - [address] 297731 Alisson Carreon MD [address] [place] [address] 2 [place] [phone] 04/13/2024 13:30 EDT Appointment [facility] Hematology & Oncology - [address] 064161 04/13/2024 14:00 EDT Appointment [facility] Hematology & Oncology - [address] [address] 04/16/2024 10:00 EST Telemedicine [facility] - [facility] Palliative Care Services [address] [place] [address] 659521 Chichi Woods MD [address] [place] [phone] 04/24/2024 9:00 EST Appointment [facility] Radiology CT Outpatient - [address] [address] 04/24/2024 11:00 EST Appointment [facility] Breast Imaging - [facility] S [address] 821781 04/27/2024 12:00 EST Appointment [facility] Hematology & Oncology - [address] 412691 05/02/2024 15:00 EST Telemedicine [facility] Hematology & Oncology - [address] 159851 Alisson Carreon MD [address] [place] [address], [facility], Level [address] [place] [phone] 05/04/2024 10:15 EST Ancillary Procedure [facility] Cardiology - [address] [place], [place] [phone] 05/04/2024 11:30 EST Appointment [facility] Hematology & Oncology - [address] [phone] 05/04/2024 12:00 EST Appointment [facility] Hematology & Oncology - [address] 116011 06/12/2024 13:00 EST [facility]ointment [facility] Rad[facility] - [facility] [address] [place], [place] [phone] documented as of this encounter Visit Diagnoses Not on filedocumented in this encounter Care Teams Agricultural Research Engineer Relationship Specialty Start Date End Date Linda Blancas MD [facility] [address] [place] [address] PCP - General 01/06/11 documented as of this encounter
--- OUTSIDE RECORDS SUMMARY | 2024-03-20 15:03 | XMS_ITS | Encounter Summary ---
Author Organization [facility] Address [address] [place] [address] Care Team Providers Care Scientific Diver Name Role Phone Linda Blancas MD Primary Care Provider [phone] Reason for Visit * Reason Onset Date Comments Labs Only 08/18/2018 Encounter Details Date Type Department Care Team (Late st Contact Info) Description 08/18/2018 Telephone [facility] Cancer Center Hematology & Oncology - [facility] [address], [place] [address] Quita Rob, SHELLEY Labs Only Social History [...] Telephone Encounter - Quita Rob RN - 08/18/2018 1631 EST Emailed pt recent tumor marker results. documented in this encounter Plan of Treatment Upcoming Encounters Date Type Department Care Team (Late st Contact Info) Description 04/02/2024 10:30 EDT Appointment [facility] Interventional Radiology Unit [address] [place] [address] [phone] 04/02/2024 15:15 EDT Office Visit [facility] Surgical Oncology - [address] [phone] Adolfo Carreno MD [address] [place] [address] 2 [place] [phone] 04/05/2024 9:30 EDT Telemedicine [facility] - [facility] Palliative Care Services [address] [place] [address] [phone] Chichi Woods MD [address] [place] [address] [phone] 04/11/2024 15:00 EDT Telemedicine [facility] Hematology & Oncology [address] 444891 Alisson Carreon MD [address] [place] [address] 2 [place] [phone] 04/13/2024 13:30 EDT Appointment [facility] Hematology & Oncology [address] 079101 04/13/2024 14:00 EDT Appointment [facility] Hematology & Oncology - [address] [phone] 04/16/2024 10:00 EST Telemedicine [facility] - [facility] Palliative Care Services [address] [place] [address] [phone] Chichi Woods MD [address] [place] [address], [address] [phone] 04/24/2024 9:00 EST Appointment [facility] Radiology CT Outpatient - [address] [id number] 04/24/2024 11:00 EST Appointment [facility] Breast Imaging - [facility] S [address] [id number] 04/27/2024 12:00 EST Appointment [facility] Hematology & Oncology - [address] 605541 05/02/2024 15:00 EST Telemedicine [facility] Hematology & Oncology - [address] 989211 Alisson Carreon MD [address] [place] [address], Level 2 [place] [phone] 05/04/2024 10:15 EST Ancillary Procedure [facility] Cardiology - [place] [address] 05/04/2024 11:30 EST Appointment [facility] Hematology & Oncology - [address] 755151 05/04/2024 12:00 EST Appointment [facility] Hematology & Oncology - [address] [address] 06/12/2024 13:00 EST Appointment [facility] Radiology CT - [address] 061521 documented as of this encounter Visit Diagnoses Not on filedocumented in this encounter Care Teams Scientific Diver Relationship Specialty Start Date End Date Linda Blancas MD [address] [facility] 30 [place] [address] PCP - General 01/06/11 documented as of this encounter
--- OUTSIDE RECORDS SUMMARY | 2024-03-20 15:03 | XMS_ITS | Encounter Summary ---
Author Organization [facility] Address [address] [place] [address] Care Team Providers Care Soil Scientist Name Role Phone Linda Blancas MD Primary Care Provider [phone] Reason for Visit * Reason Onset Date Comments Follow-up 01/11/2019 Encounter Details Date Type Department Care Team (Late st Contact Info) Description 01/11/2019 Telephone [facility] Cancer Center Hematology & Oncology - [facility] [address] [place] [address] Anel Vila, [place] [address] [place], [place] [phone] Follow-up Social History Tobacco Use Types Packs/Day [...] encounter Miscellaneous Notes * Telephone Encounter - Cadence Anel Caceres, MS - 01/11/2019 1147 EDT Mailed a note along with a test result that the variant of uncertain significance in NBN has been reclassified to LIKELY BENIGN. No changes to clinical management needed. documented in this encounter Plan of Treatment Upcoming Encounters Date Type Department Care Team (Late st Contact Info) Description 04/02/2024 10:30 EDT Appointment [facility] Interventional Radiology Unit [address] [place], [place] 647481 04/02/2024 15:15 EDT Office Visit [facility] Surgical Oncology - [address] 528381 Adolfo Carreno MD [address] [place] [address] 2 [place] [phone] 04/05/2024 9:30 EDT Telemedicine [facility] - [facility] Palliative Care Services [address] [place] [address] 125101 Chichi Woods MD [address] [place] [address], [address] [phone] 04/11/2024 15:00 EDT Telemedicine [facility] Hematology & Oncology - [address] [phone] Alisson Carreon MD [address] [place] [address] 2 [place] [phone] 04/13/2024 13:30 EDT Appointment [facility] Hematology & Oncology - [address] [phone] 04/13/2024 14:00 EDT Appointment [facility] Hematology & Oncology - [address] [address] 04/16/2024 10:00 EST Telemedicine [facility] - [facility] Palliative Care Services [address] [place] [address] [phone] Chichi Woods MD [address] [place] [address] [phone] 04/24/2024 9:00 EST Appointment [facility] Radiology CT Outpatient - [address] [address] 04/24/2024 11:00 EST Appointment [facility] Breast Imaging - [facility] S [address] 937841 04/27/2024 12:00 EST Appointment [facility] Hematology & Oncology - [address] [phone] 05/02/2024 15:00 EST Telemedicine [facility] Hematology & Oncology - [address] 295101 Alisson Carreon MD [address] [place] [address], [facility], Level [address] [place] [phone] 05/04/2024 10:15 EST Ancillary Procedure [facility] Cardiology - [address] [place], [place] [phone] 05/04/2024 11:30 EST Appointment [facility] Hematology & Oncology - [address] [phone] 05/04/2024 12:00 EST Appointment [facility] Hematology & Oncology - [address] [phone] 06/12/2024 13:00 EST Appointment [facility] Radiology [facility] - [facility] [address] [place], [place] 974181 documented as of this encounter Visit Diagnoses Not on filedocumented in this encounter Care Teams Soil Scientist Relationship Specialty Start Date End Date Linda Blancas MD [facility] [address] [place] [address] PCP - General 01/06/11 documented as of this encounter
--- OUTSIDE RECORDS SUMMARY | 2024-03-20 15:03 | XMS_ITS | Encounter Summary ---
Author Organization [facility] Address [address] [place] [address] Care Team Providers Care Wire Technician Name Role Phone Linda Blancas MD Primary Care Provider [phone] Reason for Visit * Reason Onset Date Comments Appointment Related 08/17/2018 CT on 11/13/18 Encounter Details Date Type Department Care Team (Late st Contact Info) Description 08/17/2018 Telephone [facility] Cancer Center Hematology & Oncology - [address] [address] Augustina Colin MD PhD Appointment Related (CT on 11/13/18) Social History Tobacco Use Types Packs/Day Years [...] encounter Miscellaneous Notes * Telephone Encounter - Kaylyn Barrosra - 08/17/2018 1231 EST Called pt and LMOM w/ following appt info: On 11.13.18 check in @ 3rd floor reg desk @ 2PM for CT start @2:30PM. Left PAC line for pt to call back if needed. documented in this encounter Plan of Treatment Upcoming Encounters Date Type Department Care Team (Late st Contact Info) Description 04/02/2024 10:30 EDT Appointment [facility] Interventional Radiology Unit [address] [place] [address] [id number] 04/02/2024 15:15 EDT Office Visit [facility] Surgical Oncology - [address] [phone] Adolfo Carreno MD [address] [place] [address], [facility] 2 [place] [phone] 04/05/2024 9:30 EDT Telemedicine [facility] - [facility] Palliative Care Services [address] [place] [address] [phone] Chichi Woods MD [address] [place] [address], [address] [phone] 04/11/2024 15:[address] [facility] Hematology & Oncology - [address] [phone] Alisson Carreon MD [address] [place] [address], [facility] 2 [place] [phone] 04/13/2024 13:[address] [facility] Hematology & Oncology - [address] 664131 04/13/2024 14:[address] [facility] Hematology & Oncology - [address] [address] 04/16/2024 10:00 EST Telemedicine [facility] - [facility] Palliative Care Services [address] [place] [address] [phone] Chichi Woods MD [address] [place] [address] [phone] 04/24/2024 9:00 EST Appointment [facility] Radiology CT Outpatient - [address] [id number] 04/24/2024 11:00 EST Appointment [facility] Breast Imaging - [facility] S [address] 515131 04/27/2024 12:[address] [facility] Hematology & Oncology - [address] [phone] 05/02/2024 15:[address] [facility] Hematology & Oncology [address] [phone] Alisson Carreon MD [address] [place] [address], [facility] 2 [place] [phone] 05/04/2024 10:15 EST Ancillary Procedure [facility] Cardiology [place] [place] [address] 05/04/2024 11:[address] [facility] Hematology & Oncology - [address] 225121 05/04/2024 12:[address] [facility] Hematology & Oncology [address] [address] 06/12/2024 13:[address] [facility] App[facility] [facility] Radiology CT - [address] [address] documented as of this encounter Visit Diagnoses Not on filedocumented in this encounter Care Teams Wire Technician Relationship Specialty Start Date End Date Linda Blancas MD [facility] [address] [place] [address] PCP - General 01/06/11 documented as of this encounter
--- OUTSIDE RECORDS SUMMARY | 2024-03-20 15:03 | XMS_ITS | Encounter Summary ---
Author Organization [facility] Address [address] [place] [address] Care Team Providers Care Associate Professor Of Archaeology Name Role Phone Linda Blancas MD Primary Care Provider [phone] Reason for Visit * Reason Comments Tissue Jigmaker Fill TE fill Encounter Details Date Type Department Care Team (Late st Contact Info) Description 12/07/2018 11:45 EDT Office Visit [facility] Plastic, Reconstructive & Cosmetic Surgery - [address], [address] [place], [place] [phone] Tylor Boss MD [address] [phone] S/P breast reconstruction, right (Primary [...] Progress Notes * Tylor Boss MD - 12/07/2018 1145 EDT Sunshine is here for fill of her right tissue furniture sales consultant. After verbal informed consent was obtained the port was located magnetically and marked. A chloraprep was used for sterilization. Using standard sterile technique and a closed system the port was accessed and the furniture sales consultant filled with 75 cc of injectable saline. The patient tolerated the procedure well. Access site was dressed with a spot bandaid to be removed tomorrow. Totals were recorded on the flow sheet. She now has a fill of 650 cc's in a 650 cc furniture sales consultant. Signs and symptoms of infection were discussed. She will follow up in 2-3 weeks for final fill. documented in this encounter Plan of Treatment Upcoming Encounters Date Type Department Care Team (Late st Contact Info) Description 04/02/2024 10:30 EDT Appointment [facility] Interventional Radiology Unit [address] [place] [address] [phone] 04/02/2024 15:15 EDT Office Visit [facility] Surgical Oncology - [facility] [address] [place], [place] [phone] Adolfo Carreno MD 111 [facility], Level 2 [place] [phone] 04/05/2024 9:30 EDT Telemedicine [facility] - [facility] Palliative Care Services [address] [place], [place] [phone] Chichi Woods MD 111 [facility], [address] [phone] 04/11/2024 15:00 EDT Telemedicine [facility] Hematology & Oncology - [address] 708261 Alisson Carreon MD [address] [place] [address] 2 [place] [phone] 04/13/2024 13:30 EDT Appointment [facility] Hematology & Oncology - [address] 309351 04/13/2024 14:00 EDT Appointment [facility] Hematology & Oncology [address] 650991 04/16/2024 10:00 EST Telemedicine [facility] - [facility] Palliative Care Services [address] [place] [address] Chichi Woods MD [address] [place] [phone] 04/24/2024 9:00 EST Appointment [facility] Radiology CT Outpatient - [address] [phone] 04/24/2024 11:00 EST Appointment [facility] Breast Imaging - [facility] S [address] 716371 04/27/2024 12:00 EST Appointment [facility] Hematology & Oncology - [address] 949051 05/02/2024 15:00 EST Telemedicine [facility] Hematology & Oncology - [address] [phone] Alisson Carreon MD [address] [place] [address], [facility] 2 [place] [phone] 05/04/2024 10:15 EST Ancillary Procedure [facility] Cardiology - [address] [place] [address] 05/04/2024 11:30 EST Appointment [facility] Hematology & Oncology [address] 610431 05/04/2024 12:00 EST Appointment [facility] Hematology & Oncology [address] 443661 06/12/2024 13:00 EST Appointment [facility] Radiology CT [address] 364541 documented as of this encounter Visit Diagnoses Diagnosis S/P breast reconstruction, right- Primary Breast replaced by other means documented in this encounter Care Teams Associate Professor Of Archaeology Relationship Specialty Start Date End Date Linda Blancas MD [facility] [address] [place] [address] PCP - General 01/06/11 documented as of this encounter
--- OUTSIDE RECORDS SUMMARY | 2024-03-20 15:03 | XMS_ITS | Encounter Summary ---
Author Organization [facility] Address [address] [place] [address] Care Team Providers Care Holiday Detector Operator Name Role Phone Linda Blancas MD Primary Care Provider [phone] Reason for Visit * Reason Onset Date Comments Results 11/08/2018 Encounter Details Date Type Department Care Team (Late st Contact Info) Description 11/08/2018 Telephone [facility] Cancer Center Hematology & Oncology - [facility] [address] [place], [place] 090531 Quita Rob RN Results Social History Tobacco Use Types Packs/Day [...] Telephone Encounter - Quita Rob RN - 11/08/2018 1319 EDT Called and notified Ms Glasgow results of recent CT scan and Ca27.29. documented in this encounter Plan of Treatment Upcoming Encounters Date Type Department Care Team (Late st Contact Info) Description 04/02/2024 10:30 EDT Appointment [facility] Interventional Radiology Unit [address] [place] [address] [phone] 04/02/2024 15:15 EDT Office Visit [facility] Surgical Oncology - [address] 635471 Adolfo Carreno MD [address] [place] [address] 2 [place] [phone] 04/05/2024 9:30 EDT Telemedicine [facility] - [facility] Palliative Care Services [address] [place] [address] [phone] Chichi Woods MD [address] [place] [address], [address] [phone] 04/11/2024 15:00 EDT Telemedicine [facility] Hematology & Oncology [address] [phone] Alisson Carreon MD [address] [place] [address] 2 [place] [phone] 04/13/2024 13:30 EDT Appointment [facility] Hematology & Oncology [address] [address] 04/13/2024 14:00 EDT Appointment [facility] Hematology & Oncology - [address] [address] 04/16/2024 10:00 EST Telemedicine [facility] - [facility] Palliative Care Services [address] [place] [address] Chichi Woods MD [address] [place] [address], [address] [phone] 04/24/2024 9:00 EST Appointment [facility] Radiology CT Outpatient - [address] [id number] 04/24/2024 11:00 EST Appointment [facility] Breast Imaging - [facility] S [address] 748391 04/27/2024 12:00 EST Appointment [facility] Hematology & Oncology - [address] 053281 05/02/2024 15:00 EST Telemedicine [facility] Hematology & Oncology - [address] 058261 Alisson Carreon MD [address] [place] [address], [facility] 2 [place] [phone] 05/04/2024 10:15 EST Ancillary Procedure [facility] Cardiology - [place] [address] 05/04/2024 11:30 EST Appointment [facility] Hematology & Oncology - [address] [address] 05/04/2024 12:00 EST Appointment [facility] Hematology & Oncology - [address] [phone] 06/12/2024 13:00 EST [facility]ment [facility] Radiology CT - [address] [address] documented as of this encounter Visit Diagnoses Not on filedocumented in this encounter Care Teams Holiday Detector Operator Relationship Specialty Start Date End Date Linda Blancas MD [address] [place] [address] 30 [place] [address] PCP - General 01/06/11 documented as of this encounter
--- OUTSIDE RECORDS SUMMARY | 2024-03-20 15:03 | XMS_ITS | Encounter Summary ---
Author Organization [facility] Address [address] [place] [address] Care Team Providers Care Socially Responsible Investment Adviser Name Role Phone Linda Blancas MD Primary Care Provider [phone] Encounter Details Date Type Department Care Team (Late st Contact Info) Description 01/26/2019 Results Only Imaging [facility] Surgical Oncology - [address] [id number] Adolfo Carreno MD [address] [place] [address], Level 2 [place] [phone] Social History Tobacco Use Types [...] [facility] Interventional Radiology Unit [address] [place] [address] [phone] 04/02/2024 15:15 EDT Office Visit [facility] Surgical Oncology [address] [phone] dAolfo Carreno MD [address] [place] [address] [phone] 04/05/2024 9:30 EDT Telemedicine [facility] Palliative Care Services [address] [place] [address] [phone] Chichi Woods MD [address] [place] [address] [phone] 04/11/2024 15:00 EDT Telemedicine [facility] Hematology & Oncology [address] [phone] Alisson Carreon MD [address] [place] [address] [phone] 04/13/2024 13:30 EDT Appointment [facility] Hematology & Oncology [address] [phone] 04/13/2024 14:00 EDT Appointment [facility] Hematology & Oncology [address] [phone] 04/16/2024 10:00 EST Telemedicine [facility] Pall[facility] Care Services [address] [place], [place] [phone] Chichi Woods MD 111 [facility], [address] [phone] 04/24/2024 9:00 EST Appointment [facility] Radiology CT Outpatient - [address] [phone] 04/24/2024 11:00 EST Appointment [facility] Breast Imaging - [facility] [address] [place], [place] [phone] 04/27/2024 12:00 EST Appointment [facility] Hematology & Oncology - [address] [phone] 05/02/2024 15:00 EST Telemedicine [facility] Hematology & Oncology - [address] [phone] Alisson Carreon MD 111 [facility], Level [address] [place] [phone] 05/04/2024 10:15 EST Ancillary Procedure [facility] Cardiology - [address] [place] [address] 05/04/2024 11:30 EST Appointment [facility] Hematology & Oncology - [address] [phone] 05/04/2024 12:00 EST Appointment [facility] Hematology & Oncology - [address] [phone] 06/12/2024 13:00 EST Appointment [facility] Radiology CT - [address] [phone] documented as of this encounter Procedures Procedure Name Priority Date/Time Associated Diagnosis Comments [facility] US BREAST-BREAST CARE CENTER ONLY 01/26/2019 12:42 EDT MA 2D/3D UNILATERAL LEFT ONLY ROUTINE ESTEVAN SCREENING MAMMO 01/26/2019 11:54 EDT documented in this encounter Results * [facility] BREAST-BREAST CARE CENTER ONLY (01/26/2019 12:42 EDT) Anatomical Region Laterality Modality Other 01/26/2019 12:4 2 EDT Narrative 01/26/2019 12:42 EDT See Notes Tab. Procedure Note MATH COACH, IMAGING - 01/26/2019 See Notes Tab. Adolfo Carreno MD [facility] ORDERABLES * MA 2D/3D UNILATERAL LEFT ONLY ROUTINE ESTEVAN SCREENING MAMMO (01/26/2019 11:54 EDT) Anatomical Region Laterality Modality Other 01/26/2019 11:5 4 EDT 02/15/2019 12:55 EDT Narrative 01/31/2019 12:38 EDT Addendum Begins The patient saw Dr Adolfo Carreno on 01-26-2019 for the category 0 exam. ??Dr Carreno assumes responsibility for resolving the question raised by the original category 0 exam. ??This case remains a category 0 exam for our own internal records, as the recommended exam was done elsewhere. ?? /[facility] ?? Addendum Ends Comparison has been made to previous images. Left Breast Findings: (Full breast 2D and implant displaced 3D Tomosynthesis with synthesized 2D views with CAD) There are scattered fibroglandular densities (25% - 50% fibroglandular). An area of focal asymmetry is present at 6 o'clock, linear in nature and is seen on the implant displaced views. A lobulated mass is present in the upper outer quadrant, likely a lymph node. IMPRESSION: LEFT BREAST: INCOMPLETE Focal asymmetry and a mass. Diagnostic spot compression 3D Tomosynthesis with synthesized 2D views, craniocaudal and mediolateral oblique projections. Ultrasound is recommended if needed. OVERALL ASSESSMENT - CATEGORY 0 - INCOMPLETE: NEED ADDITIONAL IMAGING EVALUATION END OF IMPRESSION These results will be communicated to your patient via a lay letter from Radiology. If any additional imaging is needed we will contact your patient directly. Procedure Note Taylor Cooley MD, - 02/15/2019 Addendum Begins The patient saw Dr Adolfo Carreno on 01-26-2019 for the category [address] Carreno assumes responsibility for resolving the question raised by the original category 0 exam. This case remains a category 0 exam for our own internal records, as the recommended exam was done elsewhere. /[facility] Addendum Ends Comparison has been made to previous images. Left Breast Findings: (Full breast 2D and implant displaced 3D Tomosynthesis with synthesized 2D views with CAD) There are scattered fibroglandular densities (25% - 50% fibroglandular). An area of focal asymmetry is present at 6 o'clock, linear in nature and is seen on the implant displaced views. A lobulated mass is present in the upper outer quadrant, likely a lymph node. IMPRESSION: LEFT BREAST: INCOMPLETE Focal asymmetry and a mass. Diagnostic spot compression 3D Tomosynthesis with synthesized 2D views, craniocaudal and mediolateral oblique projections. Ultrasound is recommended if needed. OVERALL ASSESSMENT - CATEGORY 0 - INCOMPLETE: NEED ADDITIONAL IMAGING EVALUATION END OF IMPRESSION These results will be communicated to your patient via a lay letter from Radiology. If any additional imaging is needed we will contact your patient directly. Quita Babb PA-C IMG MAMMOGRAPH Y ORDERABLES documented in this encounter Visit Diagnoses Not on filedocumented in this encounter Care Teams Socially Responsible Investment Adviser Relationship Specialty Start Date End Date Linda Blancas MD [facility] [address] [place] [address] PCP - General 01/06/11 documented as of this encounter
--- OUTSIDE RECORDS SUMMARY | 2024-03-20 15:03 | XMS_ITS | Encounter Summary ---
Author Organization [facility] Address [address] [place] [address] Care Team Providers Care Gas Attendant Name Role Phone Linda Blancas MD Primary Care Provider [phone] Reason for Visit * Reason Comments Tissue Youth Support Worker Fill TE fill Encounter Details Date Type Department Care Team (Late st Contact Info) Description 09/28/2018 14:00 EDT Office Visit [facility] Plastic, Reconstructive & Cosmetic Surgery - [address], [address] [place], [place] 72[address] Tylor Boss MD [address] [phone] S/P breast reconstruction, right (Primary [...] Progress Notes * Tylor Boss MD - 09/28/2018 1400 EDT Sunshine is here for fill of her right tissue botany laboratory assistant. After verbal informed consent was obtained the port was located magnetically and marked. A chloraprep was used for sterilization. Using standard sterile technique and a closed system the port was accessed and the botany laboratory assistant filled with 75 cc of injectable saline. The patient tolerated the procedure well. Access site was dressed with a spot bandaid to be removed tomorrow. Signs and symptoms of infection were discussed. She will follow up in 2-3 weeks. documented in this encounter Plan of Treatment Upcoming Encounters Date Type Department Care Team (Late st Contact Info) Description 04/02/2024 10:30 EDT Appointment [facility] Interventional Radiology Unit [address] [place] [address] [phone] 04/02/2024 15:15 EDT Office Visit [facility] Surgical Oncology - [address] [phone] Adolfo Carreno MD 111 [facility], Level [address] [place] [phone] 04/05/2024 9:30 EDT Telemedicine [facility] - [facility] Palliative Care Services [address] [place], [place] [phone] Chichi Woods MD 111 [facility], [address] [phone] 04/11/2024 15:00 EDT Telemedicine [facility] Hematology & Oncology - [address] [phone] Alisson Carreon MD [address] [place] [address], [facility] [address] [place] [phone] 04/13/2024 13:30 EDT Appointment [facility] Hematology & Oncology - [address] [phone] 04/13/2024 14:00 EDT Appointment [facility] Hematology & Oncology [address] [phone] 04/16/2024 10:00 EST Telemedicine [facility] - [facility] Palliative Care Services [address] [place] [address] Chichi Woods MD [address] [place] [address] [phone] 04/24/2024 9:00 EST Appointment [facility] Radiology CT Outpatient - [address] [phone] 04/24/2024 11:00 EST Appointment [facility] Breast Imaging - [address] [phone] 04/27/2024 12:00 EST Appointment [facility] Hematology & Oncology - [address] [phone] 05/02/2024 15:00 EST Telemedicine [facility] Hematology & Oncology - [address] [phone] Alisson Carreon MD [address] [place] [address], [facility] [address] [place] [phone] 05/04/2024 10:15 EST Ancillary Procedure [facility] Cardiology - [address] [place] [address] 05/04/2024 11:30 EST Appointment [facility] Hematology & Oncology [address] [address] 05/04/2024 12:00 EST Appointment [facility] Hematology & Oncology [address] [phone] 06/12/2024 13:00 EST Appointment [facility] Radiology CT - [address] [phone] documented as of this encounter Visit Diagnoses Diagnosis S/P breast reconstruction, right- Primary Breast replaced by other means documented in this encounter Care Teams Gas Attendant Relationship Specialty Start Date End Date Linda Blancas MD [facility] [address] [place] [address] PCP - General 01/06/11 documented as of this encounter
--- OUTSIDE RECORDS SUMMARY | 2024-03-20 15:03 | XMS_ITS | Encounter Summary ---
Author Organization [facility] Address [address] [place] [address] Care Team Providers Care Help Desk Intern Name Role Phone Linda Blancas MD Primary Care Provider [phone] Encounter Details Date Type Department Care Team (Latest Contact Info) Description 11/07/2018 11:16 EDT - 11/07/2018 13:23 EDT Hospital Encounter [facility] [address] [place] [address] Augustina Colin MD PhD Discharge Disposition: Home [...] as of this encounter Discharge Diagnoses Diagnosis Z01.89 Encounter for other specified special examinations-Z01.89[ICD-10-CM] documented in this encounter Medications at Time [...] DAILY 90 Tab 3 01/16/2018 01/14/2019 mv-mn/C/glutamin/lysin /[id number] (AIRBORNE, ASCORBATE SODIUM, ORAL) Take by mouth [...] Code Departure Means Destination Home or Self Senior Care documented in this encounter Plan of Treatment Upcoming Encounters Date Type Department Care Team (Late st Contact Info) Description 04/02/2024 10:30 EDT Appointment [facility] Interventional Radiology Unit [address] [place] [address] [phone] 04/02/2024 15:15 EDT Office Visit [facility] Surgical Oncology - [address] [phone] Adolfo Carreno MD [address] [place] [address] [phone] 04/05/2024 9:30 EDT Telemedicine [facility] Palliative Care Services [address] [place] [address] [phone] Chichi Woods MD [address] [place] [address] [phone] 04/11/2024 15:00 EDT Telemedicine [facility] Hematology & Oncology [address] [phone] Alisson Carreon MD [address] [place] [address] [phone] 04/13/2024 13:30 EDT Appointment [facility] Hematology & Oncology [address] [phone] 04/13/2024 14:00 EDT Appointment [facility] Hematology & Oncology [address] [phone] 04/16/2024 10:00 EST Telemedicine [facility] Palliative Care Services [address] [place] [address] [phone] Chichi Woods MD [address] [place] [address] [phone] 04/24/2024 9:00 EST Appointment [facility] Radiology CT Outpatient - [address] [phone] 04/24/2024 11:00 EST Appointment [facility] Breast Imaging - [facility] [address] [place], [place] 209101 04/27/2024 12:00 EST Appointment [facility] Hematology & Oncology - [address] [phone] 05/02/2024 15:00 EST Telemedicine [facility] Hematology & Oncology [address] [phone] Alisson Carreon MD [address] [place] [address], Level [address] [place] [phone] 05/04/2024 10:15 EST Ancillary Procedure [facility] Cardiology [place] [address] 05/04/2024 11:30 EST Appointment [facility] Hematology & Oncology [address] [address] 05/04/2024 12:00 EST Appointment [facility] Hematology & Oncology [address] [phone] 06/12/2024 13:00 EST Appointment [facility] Radiology CT - [address] [phone] documented as of this encounter Visit Diagnoses Not on filedocumented in this encounter Care Teams Help Desk Intern Relationship Specialty Start Date End Date Linda Blancas MD [facility] [address] [place] [address] PCP - General 01/06/11 documented as of this encounter
--- OUTSIDE RECORDS SUMMARY | 2024-03-20 15:03 | XMS_ITS | Encounter Summary ---
Author Organization [facility] Address [address] [place] [address] Care Team Providers Care Jig Builder Name Role Phone Ramses Blancas MD Primary Care Provider [phone] Reason for Referral * (Routine) - Receiving Office to Obtain Authorization Specialty Diagnoses / Procedures Referred By Contac t Referred To Contact Eugene Cotton MD [address] [place] [phone] Referral ID Status Reason Start Date Expiration Date Visits Requested Visits Authorized [id number] Receiving Office to Obtain Authorization Specialty Services Required 9 [address] Rodriguez in 7-10 days or as scheduled. Call [phone] for questions or concerns. * (Routine) - Receiving Office to Obtain Authorization Specialty Diagnoses / Procedures Referred By Contac t Referred To Contact Eugene Cotton MD [address] [place] [phone] Referral ID Status Reason Start Date Expiration Date Visits Requested Visits Authorized [id number] Receiving Office to Obtain Authorization Specialty Services Required 9 1 1 Comments - Chest pain (angina) - Dizziness or fainting - Decreased urine output - Fever greater than 100.5 or chills - Inability to swallow or increasing difficulty swallowing - Increased or new pain - Increased swelling in legs or arms - Nausea or vomiting - Pain unrelieved by medication - Severe or increasing headache - Shortness of breath or rapid breathing - Skin rash - Signs of infection such as pain, redness, swelling or drainage at procedure or wound site Encounter Details Date Type Department Care Team (Latest Contact Info) Description 08/30/2018 11:49 EDT - 08/30/2018 19:35 EDT Hospital Encounter [facility] Perioperative Services- [facility] [address] [place] [address] Felipe Rodriguez MD [facility] [address] [facility] [address] [place] [address] Discharge Disposition: Home or Self [...] Sign Reading Time Taken Comments Blood Pressure 117/68 08/30/2018 1815 EDT Pulse - - Temperature 36.8 ??C (98.2 ??F) 08/30/2018 1815 EDT Respiratory Rate 18 08/30/2018 1815 EDT Oxygen Saturation 97% 08/30/2018 1815 EDT Inhaled Oxygen Concentration - - Weight 61.2 kg (135 lb) 08/22/2018 1417 EDT Height 154.9 cm (5' 1) 08/22/2018 1417 EDT Body Mass Index 25.51 08/22/2018 1417 EDT documented in this encounter Functional Status [...] as of this encounter Discharge Diagnoses Diagnosis Z42.1 Encounter for breast reconstruction following mastectomy-Z42.1[ICD-10-CM] C50.911 Malignant neoplasm of unspecified site of right female breast-C50.911[ICD-10-CM] E78.00 Pure hypercholesterolemia, unspecified-E78.00[ICD-10-CM] K21.9 Gastro-esophageal reflux disease without esophagitis-K21.9[ICD-10-CM] J45.909 Unspecified asthma, uncomplicated-J45.909[ICD-10-CM] Z79.899 Other penitentiary (current) drug therapy-Z79.899[ICD-10-CM] documented in this encounter Medications at Time [...] cephALEXin (KEFLEX) 500 mg capsule Take 1 capsule by mouth every 6 hours for 7 days. 28 capsule 08/30/2018 09/06/2018 DOXYLAMINE SUCCINATE (UNISOM ORAL) Take by mouth [...] DAILY 90 Tab 3 01/16/2018 01/14/2019 mv-mn/C/glutamin/lysin /[id number] (AIRBORNE, ASCORBATE SODIUM, ORAL) Take by mouth [...] cephALEXin (KEFLEX) 500 mg capsule Take 1 capsule by mouth every 6 hours for 7 days. 28 capsule 08/30/2018 09/06/2018 HYDROmorphone (DILAUDID) 2 mg tablet Take 1 tablet by mouth every 4 hours as needed for Pain. Daily Max: 12 mg 15 tablet 08/30/2018 05/07/2019 acetaminophen (TYLENOL) 325 mg tablet Take 2 tablets by mouth every 4 hours as needed for Pain. 08/30/2018 05/26/2021 documented in this encounter Discharge Disposition Disposition Code Departure Means Destination Home or Self Care documented in this encounter Progress Notes * Xenia Zavala RN - 08/22/2018 1428 EDT Sunshine Subramanian has been instructed as follows regarding medication administration for the day of the scheduled procedure. Date of Surgery: 08/30/18 Instructions for Taking Medications Day of Surgery Medication Sig Last Dose Hold DOS Take DOS calcium-vitamin D (OS-CHAR D) 500 mg(1,250mg) -200 unit per tablet Take 1 Tab by mouth 2 times dailywith breakfast and dinner. yes DOXYLAMINE SUCCINATE (UNISOM ORAL) Take by mouth as needed. Takes half a tablet yes gabapentin (NEURONTIN) 100 mg capsule Take 2 Caps by mouth 2 times daily. Patient taking differently: Take 600 mg by mouth 2 times daily. Takes 300 mg qam and pm and 600 mg qhs yes ibuprofen (MOTRIN) 200 mg tablet Take 200-400 mg by mouth as needed. 3 days before surgery letrozole (FEMARA) 2.5 mg tablet TAKE 1 TABLET DAILY yes MULTIVITS W-CA,FE,OTHER MIN (WOMEN'S DAILY FORMULA ORAL) Take by mouth daily. yes mv-mn/C/glutamin/lysin/[id number] (AIRBORNE, ASCORBATE SODIUM, ORAL) Take by mouth. yes omeprazole (PRILOSEC) 20 mg capsule Take 20 mg by mouth daily. yes RED YEAST RICE EXTRACT ORAL Take 1,200 mg by mouth daily. 600mg 2x a day yes valACYclovir (VALTREX) 500 mg tablet Take 1 Tab by mouth daily. yes venlafaxine (EFFEXOR-XR) 150 mg XR capsule Take 1 Cap by mouth daily. yes zolpidem (AMBIEN) 5 mg tablet Take 5 mg by mouth at bedtime as needed for Sleep. Reported on 11/01/2016 yes documented in this encounter H&P Notes * Eugene Cotton MD - 08/30/2018 1248 EDT The preoperative history and physical which was performed within 30 days of this procedure has been reviewed and the clinically appropriate elements of the physical examination have been repeated. There are no changes to the documented history and physical or if so such changes are documented below Eugene Cotton MD 08/30/2018 12:48 Source Note - CAN CAPPER, SCAN 2 - 08/29/2018 8:56 EDT documented in this encounter OR Notes * OR Surgeon - Felipe Rodriguez MD - 08/30/2018 0000 EDT OPERATIVE REPORT SERVICE DATE: 08/30/2018 PREOPERATIVE DIAGNOSIS: Status post right breast reconstruction. POSTOPERATIVE DIAGNOSIS: Status post right breast reconstruction. PROCEDURE: Removal of implant with extensive lattice capsulotomy and placement of tissue general activities therapist. SURGEON: Felipe Rodriguez MD ECONOMETRICS PROFESSOR: ANESTHESIA: General endotracheal. INDICATIONS: Sunshine Bernstein is a 58-year-old female who underwent a previous lumpectomy for breast cancer, which recurred. She subsequently required a mastectomy with reconstruction. After expansion and transfer to a silicone implant, she is not happy with the size and is here for replacement of general activities therapist. Signed informed consent is on the chart. NARRATIVE: The patient was seen preoperatively and marked accordingly. She was then brought to the operative suite, placed supine on the operating room table. After stage I of the WHO checklist was appropriately completed, the patient underwent general endotracheal anesthesia without incident. She was prepped with ChloraPrep and draped in standard sterile manner. Stage II WHO checklist was appropriately completed. The previous mastectomy scar was then excised and sent for permanent pathology. Dissection was then carried down along the pectoralis muscle inferiorly until the pectoralis AlloDermjunction was identified. This was opened with Bovie electrocautery. The silicone implant was removed. I then performed an extensive lattice type capsulotomy to allow as much expansion as possible while still maintaining the integrity of the capsule to keep the general activities therapist appropriately located. Once the pocket was assured of hemostasis with Bovie electrocautery, a high profile 130 [facility] general activities therapist was placed. The middle and medial tabs were secured with 2-0 PDS suture. The pectoralis AlloDerm junction was closed with buried interrupted 3-0 PDS suture. The skin was then closed with buried interrupted3-0 Monocryl and running 4-0 Monocryl. This was dressed with benzoin and 1-inch sterile paper tape.At all times, when handling the implants, gloves were changed, pockets were irrigated with triple antibiotic solution and meticulous sterile technique was maintained. The patient was awakened, extubated and transferred to the recovery room in stable condition. At the end of the case, all appropriate needle, instrument and sponge counts were correct. Postoperative brief noted no deficiencies. Third stage of the WHO checklist was appropriately completed. Unless otherwise noted, there were no complications, no blood loss, no cultures obtained, no specimens removed, and no drains retained. Felipe Rodriguez MD 12 47 AM / Felipe Rodriguez MD ln Confirmation: [id number] Dictation ID: [id number] documented in this encounter Miscellaneous Notes * Anesthesia Post-Eval - Joey Phipps - 08/30/2018 1756 EDT Anesthesia Post op Note Sunshine Subramanian [id number] Anesthesia received: General; Vital Signs: Temp: 37 ??C (98.6 ??F), BP: 113/40, Resp: 16, SpO2: 98 % Vital signs Stable: Yes Consciousness: Awake Patient's participation in evaluation:Able to participate Temperature Status: Normothermic Respiratory Status: Airway patent Supplemental O2: Room air Oxygen Saturation: Appropriate for condition Cardiovascular Status: Appropriate for condition Post-op Hydration: Adequate Nausea / Vomiting: None Pain Control: Adequate Current Pain Score: Numeric Pain Level (Scale 1-10): 0 Post-op Assessment: Tolerated procedure well Disposition: Home Complications: No apparent anesthetic complications Joey Phipps MD 08/30/2018 17:56 * Brief Op Note - Eugene Cotton MD - 08/30/2018 1650 EDT Brief Post-Op Note Date of Surgery: 08/30/2018 Surgeon: Karyn BROWN Assistants: Lula PGY1 Pre-Op Diagnosis: Asymmetry of right breast Post-Op Diagnosis: same Procedure(s): Removal of intact right breast implant and placement of tissue general activities therapist Findings: See formal op note Anesthesia Type: General Estimated Blood Loss: Unless otherwise noted, there was no blood loss, specimens removed, cultures obtained, or drains retained. The estimated blood loss was 50mL Fluids: Sunshine Subramanian received Crystalloids 1200 mL of fluid replacement. Urine Output: N/a Specimens/Cultures: Right mastectomy scar was sent for Routine Pathology Drains/Packs: None Complications: None Disposition and Condition: Sunshine Subramanian was sent to PACU in Stable condition. Eugene Cotton MD 08/30/2018 16:50 documented in this encounter Plan of Treatment Upcoming Encounters Date Type Department Care Team (Late st Contact Info) Description 04/02/2024 10:30 EDT Appointment [facility] Interventional Radiology Unit [address] [place] [address] [phone] 04/02/2024 15:15 EDT Office Visit [facility] Surgical Oncology - [address] [id number] Adolfo Carreno MD [address] [place] [address] [phone] 04/05/2024 9:30 EDT Telemedicine [facility] Palliative Care Services [address] [place] [address] [phone] Chichi Woods MD [address] [place] [address] [phone] 04/11/2024 15:00 EDT Telemedicine [facility] Hematology & Oncology [address] 147221 Alisson Carreon MD [address] [place] [address] [phone] 04/13/2024 13:30 EDT Appointment [facility] Hematology & Oncology [address] [phone] 04/13/2024 14:00 EDT Appointment [facility] Hematology & Oncology [address] [phone] 04/16/2024 10:00 EST Telemedicine [facility] Palliative Care Services [address] [place] [address] [phone] Chichi Woods MD [address] [place] [address] [phone] 04/24/2024 9:00 EST Appointment [facility] Radiology CT Outpatient - [address] [id number] 04/24/2024 11:00 EST Appointment [facility] Breast Imaging - [facility] [address] [place], [place] [phone] 04/27/2024 12:00 EST Appointment [facility] Hematology & Oncology - [address] [address] 05/02/2024 15:00 EST Telemedicine [facility] Hematology & Oncology [address] [phone] Alisson Carreon MD [address] [place] [address], [address] [place] [phone] 05/04/2024 10:15 EST Ancillary Procedure [facility] [place]iology [place] [address] [address] [place] [address] 05/04/2024 11:30 EST Appointment [facility] Hematology & Oncology [address] [phone] 05/04/2024 12:00 EST Appointment [facility] Hematology & Oncology [address] [phone] 06/12/2024 13:00 EST Appointment [facility] Radiology CT - [address] [id number] Scheduled Referrals Name Type Priority Associated Diagnoses Order Schedule PROVIDER FOLLOW-UP INSTRUCTIONS Outpatient Referral Routine Ordered: 08/30/2018 PROVIDER FOLLOW-UP INSTRUCTIONS Outpatient Referral Routine Ordered: 08/30/2018 documented as of this encounter Procedures Procedure Name Priority Date/Time Associated Diagnosis Comments IMPLANT RECORD - SCANNED 09/10/2018 11:50 EDT IMPLANT RECORD - SCANNED 09/04/2018 7:42 EDT SURGICAL PATHOLOGY Routine 08/30/2018 14 :40 EDT documented in this encounter Results * IMPLANT RECORD - SCANNED (09/10/2018 11:50 EDT) 09/10/2018 11:5 0 EDT Scan 2 [employer] Application Developer PROCEDURE/MINOR AJ GICAL ORDERABLES * IMPLANT RECORD - SCANNED (09/04/2018 7:42 EDT) 09/04/2018 7:42 EDT Scan 2 [employer] Application Developer PROCEDURE/MINOR AJ GICAL ORDERABLES * SURGICAL PATHOLOGY (08/30/2018 14:40 EDT) Pathology Report: SURGICAL PATHOLOGY REPORT Reports generated via electronic interface contain original data; however they are lacking the format of the original report. Caution should be taken when reading/interpret ing unformatted reports. Name: ? SUNSHINE SUBRAMANIAN ? Accession #: ? [id number] ? : ? 1960 (Age: 58) ??F ? Collect Date: ? 08/30/2018 ? Location: ? [facility] ? Receive Date: ? 08/30/2018 ? Provider: FELIPE RODRIGUEZ MD Copy to: RAMSES BLANCAS MD ? Final Pathologic Diagnosis: A. SOFT TISSUE, RIGHT BREAST IMPLANT CAPSULE NODULE, BIOPSY: - Fragment of scar tissue with foreign body giant cell reaction. - Negative for malignancy. B. SKIN, RIGHT MASTECTOMY SCAR, EXCISION: - Benign skin with scar and foreign body giant cell reaction. - Negative for malignancy. Document reviewed and electronically signed by: LEONA PATEL MD PHD Report ??Date: 09/04/2018 11:23 By the signature above, the attending physician certifies that he/she has personally conducted a gross and/or microscopic examination of the described specimens and rendered or confirmed the above diagnosis. Specimen(s) Received: A. ??Right breast reconstruction capsule mass B. ??Right mastectomy scar Clinical History: H/O metastatic breast Ca Intraoperative Interpretation: A. ??RIGHT BREAST, IMPLANT CAPSULE NODULE, BIOPSY (FSA1): - Nodular foreign body giant cell reaction to refractile material related to prior surgery. - Results reported to Dr. Rodriguez in OR #5 by telephone. ??Dr. Kaye 08/30/18 1449 hours. Gross Description: A. ?Received fresh labelled with proper patient identification (initials O, K) and right breast reconstruction capsule mass is a 0.5 x 0.4 x 0.1 cm piece of soft brown tissue bisected and submitted for frozen section analysis with the results as indicated above. The tissue is bisected and submitted as A1 (frozen section), A2 (derm). B. ?Received in normal saline labelled with proper patient identification (initials O, K) and right mastectomy scar are two pieces of skin with attached fibrofatty tissue which measure 2.5 x 0.9 x 0.5 cm and 9.1 x 0.5 x 0.3 cm. The skin of the larger piece has skin retraction extending across its surface representing a possible scar. [employer] Architect section are submitted as B1 (large piece with scar) and B2 (small peace). Dr. He 08/31/2018 4:22 PM End of Report [facility] 08/30/2018 14:4 0 EDT 08/30/2018 14:40 EDT Felipe Rodriguez MD FACS PATHOLOGY OR DERABLES [facility] [address] [place] [address] documented in this encounter Visit Diagnoses Not on filedocumented in this encounter Administered Medications Inactive Administered Medications - up to 3 most recent administrations Medication Order MAR Action Action Date Dose Rate Site acetaminophen (TYLENOL) solution unit dose cup 995 mg 995 mg (rounded from 1,000 mg), oral, PRN, 1 dose, Starting on Tue08/30/18 at 1619, Until Tue08/30/18 at 1830, Fever, Routine, Recovery (only) Given 08/30/2018 18:30 EDT 995 mg atropine 0.1 mg/mL syringe 0.5 mg 0.5 mg, intravenous, PRN, Starting on Tue08/30/18 at 1619, Until Tue08/30/18 at 2156, Symptomatic HR < 50, Routine, Recovery (only) ceFAZolin (ANCEF) syringe 2 g 2 g, intravenous, Administer over 10 Minutes, PIPE LINE MAINTENANCE SUPERVISOR TO O.R., 1 dose, First dose on Tue08/30/18 at 1315, Routine Given by Other 08/30/2018 14:00 EDT 2 g diphenhydrAMINE (BENADRYL) injection 12.5 mg 12.5 mg, intravenous, PRN, 1 dose, Starting on Tue08/30/18 at 1619, Until Tue08/30/18 at 2156, nausea, Routine, Recovery (only) fentaNYL citrate (PF) injection 25-50 mcg 25-50 mcg, intravenous, EVERY 5 MIN PRN, Starting on Tue08/30/18 at 1619, Until Tue08/30/18 at 2156, Pain, Routine, Recovery (only) HYDROmorphone (DILAUDID) tablet 2-4 mg 2-4 mg, oral, EVERY 4 HOURS PRN, Starting on Tue08/30/18 at 1423, Until Tue08/30/18 at 2156, Pain, Routine Given 08/30/2018 18:30 EDT 2 mg lactated ringers (LR) infusion at 25 mL/hr, intravenous, CONTINUOUS, Starting on Tue08/30/18 at 1300, Until Tue08/30/18 at 2156, Routine, Preprocedure New Bag 08/30/2018 12:40 EDT 25 mL/hr lactated ringers (LR) infusion at 75 mL/hr, intravenous, CONTINUOUS, Starting on Tue08/30/18 at 1645, Until Tue08/30/18 at 2156, Routine, Recovery (only) metoCLOPramide (REGLAN) injection 10 mg 10 mg, intravenous, PRN, 1 dose, Starting on Tue08/30/18 at 1619, Until Tue08/30/18 at 2156, Nausea, Routine, Recovery (only) naloxone (NARCAN) injection 0.2 mg 0.2 mg, intravenous, PRN, Starting on Tue08/30/18 at 1619, Until Tue08/30/18 at 2156, Opioid Reversal, Routine, Recovery (only) ondansetron (PF) (ZOFRAN) injection 4 mg 4 mg, intravenous, PRN, 1 dose, Starting on Tue08/30/18 at 1619, Until Tue08/30/18 at 215, Nausea, Vomiting, Routine, Recovery (only) documented in this encounter Discontinued Medications Medication Sig Discontinue Reason Start Date End Da te ondansetron (ZOFRAN-ODT) 4 mg disintegrating tablet Take 1 Tab by mouth every 8 hours as needed for Nausea. Error 06/01/2018 08/22/2018 ibuprofen (MOTRIN) 200 mg tablet Take 200-400 mg by mouth as needed. 08/30/2018 documented as of this encounter Active and Recently Administered Medications Times are shown in EDT. Scheduled Medication Order 08/28/2018 08/29/2018 08/30/2018 ceFAZolin (ANCEF) syringe 2 g (COMPLETED) 2 g, intravenous, Administer over 10 Minutes, PIPE LINE MAINTENANCE SUPERVISOR TO O.R., 1 dose, First dose on Tue08/30/18 at 1315, Routine 1400 (Given by Other - Provider: Zayra Manzano RN - Comment: given by Dr Joey Montemayor) Continuous Medication Order 08/28/2018 08/29/2018 08/30/2018 lactated ringers (LR) infusion at 25 mL/hr, intravenous, CONTINUOUS, Starting on Tue08/30/18 at 1300, Until Tue08/30/18 at 2156, Routine, Preprocedure 1240 (New Bag - Prov ider: Xenia Zavala RN) lactated ringers (LR) infusion at 75 mL/hr, intravenous, CONTINUOUS, Starting on Tue08/30/18 at 1645, Until Tue08/30/18 at 2156, Routine, Recovery (only) 1645 (Canceled Entry - Provider: Batch Job User Admin - Comment: Automatically canceled at discontinue of medication order) PRN Medication Order 08/28/2018 08/29/2018 08/30/2018 acetaminophen (TYLENOL) solution unit dose cup 995 mg (COMPLETED)(Linked Group 1) 995 mg (rounded from 1,000 mg), oral, PRN, 1 dose, Starting on Tue08/30/18 at 1619, Until Tue08/30/18 at 1830, Fever, Routine, Recovery (only) 1830 (Given - Provid er: Annalisa Sierra RN) atropine 0.1 mg/mL syringe 0.5 mg 0.5 mg, intravenous, PRN, Starting on Tue08/30/18 at 1619, Until Tue08/30/18 at 2156, Symptomatic HR < 50, Routine, Recovery (only) diphenhydrAMINE (BENADRYL) injection 12.5 mg 12.5 mg, intravenous, PRN, 1 dose, Starting on Tue08/30/18 at 1619, Until Tue08/30/18 at 215, nausea, Routine, Recovery (only) fentaNYL citrate (PF) injection 25-50 mcg 25-50 mcg, intravenous, EVERY 5 MIN PRN, Starting on Tue08/30/18 at 1619, Until Tue08/30/18 at 2156, Pain, Routine, Recovery (only) HYDROmorphone (DILAUDID) tablet 2-4 mg 2-4 mg, oral, EVERY 4 HOURS PRN, Starting on Tue08/30/18 at 1423, Until Tue08/30/18 at 2156, Pain, Routine 1830 (Given - Provid er: Annalisa Sierra RN) metoCLOPramide (REGLAN) injection 10 mg 10 mg, intravenous, PRN, 1 dose, Starting on Tue08/30/18 at 1619, Until Tue08/30/18 at 215, Nausea, Routine, Recovery (only) naloxone (NARCAN) injection 0.2 mg 0.2 mg, intravenous, PRN, Starting on Tue08/30/18 at 1619, Until Tue08/30/18 at 215, Opioid Reversal, Routine, Recovery (only) ondansetron (PF) (ZOFRAN) injection 4 mg 4 mg, intravenous, PRN, 1 dose, Starting on Tue08/30/18 at 1619, Until Tue08/30/18 at 2156, Nausea, Vomiting, Routine, Recovery (only) Linked Groups Order Group 1: acetaminophen (TYLENOL) solution unit dose cup 995 mg (COMPLETED)Jump to med 995 mg (rounded from 1,000 mg), oral, PRN, 1 dose, Starting on Tue08/30/18 at 1619, Until Tue08/30/18 at 1830, Fever, Routine, Recovery (only) Or acetaminophen (TYLENOL) tablet 1,000 mg (COMPLETED) 1,000 mg, oral, PRN, 1 dose, Starting on Tue08/30/18 at 1619, Until Tue08/30/18 at 1830, Fever, Routine, Recovery (only) documented in this encounter Orders Medications Ordered That Vj ht Not Have Been Administered Count Last Ordered Date First Ordered Date acetaminophen (TYLENOL) tablet 1,000 mg 1 0 08/30/2018 atropine 0.1 mg/mL syringe 0.5 mg 1 019 diphenhydrAMINE (BENADRYL) i njection 12.5 mg 1 08/30/2018 fentaNYL citrate (PF) injection 25-50 mcg 1 08/30/2018 lactated ringers (LR) infusion 1 08/30/2018 metoCLOPramide (REGLAN) injection 10 mg 1 0 08/30/2018 naloxone (NARCAN) injection 0.2 mg 1 2018 ondansetron (PF) (ZOFRAN) injection 4 mg 1 08/30/2018 Diet Count Last Ordered Date First Orde red Date DISCHARGE DIET 1 08/30/2018 Nursing Count Last Ordered Date First Orde red Date ACTIVITY INSTRUCTIONS 1 08/30/2018 BATHING INSTRUCTIONS 1 08/30/2018 WOUND CARE INSTRUCTIONS 1 08/30/2018 Transfer Count Last Ordered Date First Orde red Date NOTIFY PPS OF DISCHARGE COMPLETE 1 08/31/19 PPS NOTIFICATION OF PATIENT ARRIVAL ON UNIT 1 08/30/2018 Discharge Count Last Ordered Date First Orde red Date DISCHARGE PATIENT 1 08/30/2018 documented in this encounter Care Teams Jig Builder Relationship Specialty Start Date End Date Ramses Blancas MD [facility] [address] [place] [address] PCP - General 01/06/11 documented as of this encounter
--- OUTSIDE RECORDS SUMMARY | 2024-03-20 15:04 | XMS_ITS | Encounter Summary ---
Author Organization [facility] Address [address] [place] [address] Care Team Providers Care Php Magento Developer Name Role Phone Linda Blancas MD Primary Care Provider [phone] Reason for Visit * Reason Onset Date Comments Labs Only 03/31/2018 Encounter Details Date Type Department Care Team (Late st Contact Info) Description 03/31/2018 Telephone [facility] Hematology & Oncology - [facility] [address] [place] [address] Susana Doherty, RN Labs Only Social History Tobacco Use Types [...] encounter Miscellaneous Notes * Telephone Encounter - Susana Doherty RN - 03/31/2018 1229 EDT PC to patient to let her know her CA 27.29 was 25.9. Will continue to monitor. documented in this encounter Plan of Treatment Upcoming Encounters Date Type Department Care Team (Late st Contact Info) Description 04/02/2024 10:30 EDT Appointment [facility] Interventional Radiology Unit [address] [place] [address] [phone] 04/02/2024 15:15 EDT Office Visit [facility] Surgical Oncology - [address] [phone] Adolfo Carreno MD [address] [place] [address] 2 [place] [phone] 04/05/2024 9:30 EDT Telemedicine [facility] - [facility] Palliative Care Services [address] [place] [address] [phone] Chichi Woods MD [address] [place] [phone] 04/11/2024 15:00 EDT Telemedicine [facility] Hematology & Oncology [address] [address] Alisson Carreon MD [address] [place] [address] 2 [place] [phone] 04/13/2024 13:30 EDT Appointment [facility] Hematology & Oncology - [address] [id number] 04/13/2024 14:00 EDT Appointment [facility] Hematology & Oncology - [address] [phone] 04/16/2024 10:00 EST Telemedicine [facility] - [facility] Palliative Care Services [address] [place], [place] [phone] Chichi Woods MD 111 [facility], [address] [phone] 04/24/2024 9:00 EST Appointment [facility] Radiology CT Outpatient - [address] [id number] 04/24/2024 11:00 EST Appointment [facility] Breast Imaging - [address] [id number] 04/27/2024 12:00 EST Appointment [facility] Hematology & Oncology - [address] [phone] 05/02/2024 15:00 EST Telemedicine [facility] Hematology & Oncology - [address] [phone] Alisson Carreon MD [address] [place] [address], [facility] [address] [place] [phone] 05/04/2024 10:15 EST Ancillary Procedure [facility] Cardiology [place] [place] [address] 05/04/2024 11:30 EST Appointment [facility] Hematology & Oncology - [address] [id number] 05/04/2024 12:00 EST Appointment [facility] Hematology & Oncology - [address] [address] 06/12/2024 13:00 EST Appointment [facility] Radiology CT - [address] [address] documented as of this encounter Visit Diagnoses Not on filedocumented in this encounter Care Teams Php Magento Developer Relationship Specialty Start Date End Date Linda Blancas MD [address] [place] [address] PCP - General 01/06/11 documented as of this encounter
--- OUTSIDE RECORDS SUMMARY | 2024-03-20 15:04 | XMS_ITS | Encounter Summary ---
Author Organization [facility] Address [address] [place] [address] Care Team Providers Care Administrative Coordinator Name Role Phone Linda Blancas MD Primary Care Provider [phone] Reason for Visit * Reason Comments Follow-up Encounter Details Date Type Department Care Team (Late st Contact Info) Description 05/24/2018 13:30 EST Office Visit [facility] Hematology & Oncology - [facility] [address] [place] [address] Augustina Colin MD PhD Metastatic breast cancer [...] Sign Reading Time Taken Comments Blood Pressure 136/56 05/24/2018 1335 EST Pulse 88 05/24/2018 1335 EST Temperature 36.9 ??C (98.5 ??F) 05/24/2018 1335 EST Respiratory Rate 18 05/24/2018 1335 EST Oxygen Saturation 98% 05/24/2018 1335 EST Inhaled Oxygen Concentration - - Weight 61.8 kg (136 lb 4.8 oz) 05/24/[address] Height - - Body Mass Index 25.4 03/09/2018 1410 EDT documented in this encounter Functional Status [...] this encounter Patient Instructions * Patient Instructions* Kathryn Felder MD - 05/24/2018 13:30 EST - stop palbociclib - see again in 3 months - no more monthly labs - we will check occasional tumor markers documented in this encounter Progress Notes * Kathryn Felder MD - 05/24/2018 1330 EST REASON FOR OFFICE VISIT: Review treatment and scans PROBLEM LIST: 1. 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 a. ??Ultrasound performed in [place]??identifying an irregular heterogeneous soft tissue mass measuring 1.2 x 1.2 x 1.5 cm. ?? 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 ??HER-2 1+ by IHC. ??ANNE [...] with dose reduction due to mouth sores. ?f. 07/07/17 underwent excision of right breast tumor/revision and placement of tissue welder gas tungsten arc. ??1.9 cm tumor at time of surgery, well differentiated, with LVI present, and negative margins. ?? 2. ??Restaging scans: ??CT scan of the chest completed 10/12/2017 with improvements in metastatic sites including small nodules in the lung. 3. ??DCIS in 2004 at the age [...] chronic health issues: ??gastroesophageal reflux disease. SUBJECTIVE: Sunshine presents to clinic today to discuss imaging, labs and therapy side effects andplanning go forward. She has had a lot of stressors in her life due to recent 2 deaths, one of her younger sister 1 month ago and then prior to that her mother. Her sister suddenly and she was left with all of the work to organize her things and . Additionally, her welder gas tungsten arc has started leaking. She has had her reconstructive surgery date moved as the additional plan of transplanting fat from her abdomen and fixing the abdominal scarring will require a longer surgery. This is plannedfor next Tuesday. She has been holding her Palbo since Tuesday in preparation for surgery. She complains of fatigue, headaches, back pain, HAN, insomnia, anxiety. These are all related to her recent stressors and not the therapy. Her hot flashes continue and have been present for many years. She hasalso some decreased appetite. ROS: A 10 point review of systems was obtained. The remaining review of systems is discussed and isnegative. Medications Prior to Today's Visit Medication Sig [...] and pm and 600 mg qhs) ??? IBRANCE 100 mg capsule TAKE 1 CAPSULE DAILY FOR 21 DAYS OF A 28 DAY CYCLE ??? ibuprofen (MOTRIN) 200 mg tablet Take 200-400 mg by mouth as needed. ??? letrozole (FEMARA) 2.5 mg tablet TAKE 1 TABLET DAILY ??? MULTIVITS W-CA,FE,OTHER MIN (WOMEN'S DAILY FORMULA ORAL) Take by mouth daily. ??? omeprazole (PRILOSEC) 20 mg capsule Take [...] 3 Glasses of wine per week Presents to clinic with her today. Objective: BP 136/56 Pulse 88 Temp 36.9 ??C (98.5 ??F) (Tympanic) Resp 18 Wt 61.8 kg (136 lb 4.8 oz) SpO2 98% BMI 25.40 kg/m?? Estimated body mass index is 25.4 kg/m?? as calculated from the following: Height as of 03/09/18: 156 cm (61.42). Weight as of this encounter: 61.8 kg (136 lb 4.8 oz). ECOG Performance Status: 0 Physical Exam Constitutional: She appears well-developed and well-nourished. HENT: Head: Normocephalic and atraumatic. Eyes: Pupils are equal, round, and reactive to light. Neck: Normal range of motion. Neck supple. Cardiovascular: Normal rate, regular rhythm, normal heart sounds and intact distal pulses. Pulmonary/Chest: Effort normal and breath sounds normal. Abdominal: Soft. Bowel sounds are normal. Lymphadenopathy: She has no cervical adenopathy. Skin: Skin is warm and dry. Psychiatric: She has a normal mood and affect. DIAGNOSTIC DATA No visits with results within 1 Day(s) from this visit. Latest known visit with results is: Telephone on 03/30/2018 Component Date Value Ref Range Status ??? WBC, External 03/28/2018 3.5 Final ??? RBC, External 03/28/2018 3.38 Final ??? Hemoglobin, External 03/28/2018 12.5 Final ??? HCT, External 03/28/2018 38.0 Final ??? MCV, External 03/28/2018 112 Final ??? MCH, External 03/28/2018 37.0 Final ??? MCHC, External 03/28/2018 32.9 Final ??? PLT, External 03/28/2018 209 Final ??? RDW-CV, External 03/28/2018 12.5 Final ??? Neutrophils, External 03/28/2018 45 Final ??? Lymphocytes, External 03/28/2018 29 Final ??? Monocytes, External 03/28/2018 6 Final ??? Eosinophils, External 03/28/2018 1 Final ??? Basophils, External 03/28/2018 3 Final ??? ABS Neutrophils, External 03/28/2018 1.6 Final ??? ABS Lymphs, External 03/28/2018 1.6 Final ??? ABS Monocytes, External 03/28/2018 0.2 Final ??? ABS Eosinophils, External 03/28/2018 0.0 Final ??? ABS Basophils, External 03/28/2018 0.1 Final ??? Glucose, Serum, External 03/28/2018 93 Final ??? Albumin, External 03/28/2018 4.0 Final ??? Total Alkaline Phosphatase, Hairspring I Inspector* 03/28/2018 75 Final ??? ALT, External 03/28/2018 19 Final ??? AST, External 03/28/2018 19 Final ??? BUN, External 03/28/2018 18 Final ??? Calcium, External 03/28/2018 8.3 Final ??? Chloride, External 03/28/2018 108 Final ??? CO2, External 03/28/2018 28 Final ??? Creatinine, External 03/28/2018 0.9 Final ??? Potassium, External 03/28/2018 3.8 Final ??? Sodium, External 03/28/2018 144 Final ??? Total Protein, External 03/28/2018 7.4 Final ??? Bilirubin, Total, External 03/28/2018 0.52 Final CA 27-29: 25.9 IMAGIN05/18/2018 IMPRESSION: 1. Multiple stable 1 to 3 mm nodules within the lungs. Impression: No evidence of osseous metastatic disease. ASSESSMENT: ??Ms Bernstein is a 57-year-old female with metastatic breast cancer with metastatic disease in the mediastinal lymph node and skin/lateral breast. The largest area of disease on the lateral aspect of the breast was removed at the time of implant removal and the mediastinal lymphadenopathy resolved with treatment. She has an welder gas tungsten arc in and was planned for reconstructive breast surgery, which is now scheduled for next Tuesday. We had instructed her to start holding the Palbo prior to surgery, which she started to do this past Tuesday. Her scans and tumor markers indicate stabledisease. There are no enlarged mediastinal nodes on chest CT, the lung nodules are very small 2-3 mm and stable, and no osseous mets on bone scan. Her labs have remained in a good range. She is doinggenerally very well from an oncologic standpoint, her problems currently are all rooted in social stressors. We discussed holding the palbo for now as her disease has been stable now and she has beenon the combination therapy since October of 2016. There is no data to help us guide us regarding the appropriate timing of holding palbo, however, as she has such a low volume of disease, is very strongly hormone receptor positive, it seems reasonable. It is also very reasonable to add this back if sheprogresses on anti-estrogen therapy alone. ? PLAN: 1. Continue letrozole 2.5 mg daily. Hold palbociclib 100mg for now ?? 2. Check CA 27.29 periodically, no need for CBC off of Palbo 3. F/U in 3 months 4. Next bone density scan will be due December 2018 ?? Seen, examined and discussed with the attending, Dr Dixie Felder MD PGY5 Hematology Oncology Fellow [facility] Attestation statement: I saw and examined the patient with the resident/fellow. I agree with the findings and plan of care documented in the resident's/fellow's note. documented in this encounter Plan of Treatment Upcoming Encounters Date Type Department Care Team (Late st Contact Info) Description 04/02/2024 10:30 EDT Appointment [facility] Interventional Radiology Unit [address] [place], [place] [phone] 04/02/2024 15:15 EDT Office Visit [facility] Surgical Oncology - [address] [phone] Adolfo Carreno MD [facility] [address] [place] [phone] 04/05/2024 9:30 EDT Telemedicine [facility] - [facility] Palliative Care Services [address] [place], [place] [phone] Chichi Woods MD 111 [facility], [address] [phone] 04/11/2024 15:00 EDT Telemedicine [facility] Hematology & Oncology - [facility] [address] [place], [place] [phone] Alisson Carreon MD [address] [place] [address], [facility] 2 [place] [phone] 04/13/2024 13:30 EDT Appointment [facility] Hematology & Oncology - [address] [phone] 04/13/2024 14:00 EDT Appointment [facility] Hematology & Oncology - [address] [phone] 04/16/2024 10:00 EST Telemedicine [facility] - [facility] Palliative Care Services [address] [place] [phone] Chichi Woods MD [address] [place] [address], [address] [phone] 04/24/2024 9:00 EST Appointment [facility] Radiology CT Outpatient - [address] [id number] 04/24/2024 11:00 EST Appointment [facility] Breast Imaging - [facility] S [address] [id number] 04/27/2024 12:00 EST Appointment [facility] Hematology & Oncology - [address] [phone] 05/02/2024 15:00 EST Telemedicine [facility] Hematology & Oncology - [address] [phone] Alisson Carreon MD [address] [place] [address], [facility] [address] [place] [phone] 05/04/2024 10:15 EST Ancillary Procedure [facility] Cardiology - [address] [place], [place] [phone] 05/04/2024 11:30 EST Appointment [facility] Hematology & Oncology - [facility] [address] [place] [address] 05/04/2024 12:00 EST Appointment [facility] Hematology & Oncology - [facility] [address] [place] [address] 06/12/2024 13:00 EST Appointment [facility] Radiology CT - [facility] [address] [place] [address] documented as of this encounter Results * CA 27.29 (08/17/2018 10:22 EST) CA 27.29 23.4 <38 U/mL 08/17/2018 15:14 EST [facility] Comment: Serum CA 27.29 concentration should not be interpreted as absolute evidence for the presence or absence of malignant disease. Assayed utilizing [employer] chemiluminescent technology. ??Values obtained by using different assay methods cannot be used interchangeably. Blood specimen (specimen) BLOOD SPECIMEN / Unknown 08/17/2018 10:22 EST 08/17/2018 10:32 EST Augustina Colin MD PhD CHEMISTRY & BLOOD GA S ORDERABLES [facility] [address] [place] [address] documented in this encounter Visit Diagnoses Diagnosis Metastatic breast cancer- Primary documented in this encounter Care Teams Administrative Coordinator Relationship Specialty Start Date End Date Linda Blancas MD [facility] [address] [place] [address] PCP - General 01/06/11 documented as of this encounter
--- OUTSIDE RECORDS SUMMARY | 2024-03-20 15:04 | XMS_ITS | Encounter Summary ---
Author Organization [facility] Address [address] [place] [address] Care Team Providers Care Cad Cam Programmer Name Role Phone Linda Blancas MD Primary Care Provider [phone] Reason for Referral * PT/OT/ST (Routine) - New Request Specialty Diagnoses / Procedures Referred By Contac t Referred To Contact Diagnoses Chronic bilateral low back pain without sciatica Karen Holley PA-C [address] [place] [phone] Referral ID Status Reason Start Date Expiration Date Visits Requested Visits Authorized [id number] New Request Specialty Services Required 03/09/2018 1 1 Question Answer Reason for Request: lbp s/p L3-S1 fusion (2011) Reason for Visit * Reason Comments Back Pain Low back pain DOS 12/13/11 Encounter Details Date Type Department Care Team (Late st Contact Info) Description 03/09/2018 13:00 EDT Office Visit [facility] Spine Program - [address] [place] [address] Karen Holley PA-C [address] [place] [phone] Chronic bilateral low back pain without sciatica (Primary Dx) Discharge Disposition: Auto Discharge Social History Tobacco Use Types Packs/Day Years Used Date Smoking Tobacco: Never Smokeless Tobacco: Never Tobacco Cessation:Counseling Given: No Alcohol Use Standard Drinks/Week Comments Yes 1 [...] - Inhaled Oxygen Concentration - - Weight 65.8 kg (145 lb) 03/09/2018 1410 EDT 136 lb- pt reported Height 156 cm (5' 1.42) 03/09/2018 1410 EDT Body Mass Index 27.02 03/09/2018 1410 EDT documented in this encounter [...] visiting a doctor's office or shopping? No 01/19/2018 Cognitive Status Response Date of Assessm ent Because of a physical, menta l, or emotional condition, does this person have serious difficulty concentrating, remembering, or making decisions? No 01/19/2018 documented as of this encounter Discharge Diagnoses Diagnosis M54.5 Low back pain-M54.5[ICD-10-CM] documented in this encounter Discharge Disposition Disposition Code Departure Means Destination Auto Discharge documented in this encounter Progress Notes * Karen Holley PA - 03/09/2018 1300 EDT Sunshine Myles Pleitez is being seen as a consultation from Dr. Ramires. Chief Complaint Patient presents with ??? Back Pain Low back pain DOS 12/13/11 The encounter diagnosis was Chronic bilateral low back pain without sciatica. 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 Patient states that at the beginning of January she was gardening (which wilner regular activity for her), and she heard loud clicking noises coming from her spine when she changed positions). At that time, she had mild proxiimal LBP, located at L2-L3 with left anterior groinand thigh pain, which caused her to limp. LLE symptoms were similar to what she experienced prior to surgery, however the symptoms resolved completely within a couple of days and have not returned. LBP is intermittent, and described as achy with clicking when she changes positions. Progression: Staying the same. Alleviating positions: None. Aggravating positions: Transitioning and twisting. Denies bowel or bladder dysfunction. Denies leg weakness. Pain today 0/10, worst is 8/10. Conservative treatment: Physical therapy: None. Chiropractics: None. Ice and heat: None. Patient does use a theracane and golf ball on the proximal portion of her low back, thoracic spine and shoulders. Ibuprofen which provides some relief. Injections: None. Patient does swim regularly in a [place] near her home and endorses an intentional 20 pound weight loss. Denies fever, night sweats, trouble sleeping. Social history: Non-smoker. Not currently working. Patient Active Problem List Diagnosis ??? Papanicolaou [...] TUNNEL RELEASE 2007 ??? LIPOMA RESECTION 2000 Social History Substance Use Topics ??? Smoking status: Never Smoker ??? Smokeless tobacco: Never Used ??? Alcohol use 0.6 - 1.8 oz/week 1 - 3 Glasses of wine per week Family History Problem Relation Age of Onset ??? Cancer Father bladder ??? Cancer Brother 59 esophageal ??? Cancer Maternal Uncle bladder ??? Breast Cancer Paternal Aunt 35 Current Outpatient Prescriptions Medication Sig Dispense Refill ??? calcium-vitamin D [...] 600 mg qhs) 360 Cap 3 ??? IBRANCE 100 mg capsule TAKE 1 CAPSULE DAILY FOR 21 DAYS OF A 28 DAY CYCLE 21 Cap 5 ??? ibuprofen (MOTRIN) 200 mg tablet Take [...] Reported on 11/01/2016 No current facility-administered medications for this visit. Allergies Allergen Reactions ??? Amoxicillin Other (See Comments) and Rash Red rash ??? Sulfa (Sulfonamide Antibiotics) Hives Light lavender rash Review of Systems Constitutional: Positive for activity change. Negative for diaphoresis, fatigue, fever and unexpected weight change. Eyes: Negative for visual disturbance. Respiratory: Negative for shortness of breath. Gastrointestinal: Negative for constipation. Genitourinary: Negative for difficulty urinating. Musculoskeletal: Positive for back pain. Skin: Negative for rash. Neurological: Positive for numbness. Psychiatric/Behavioral: Negative for dysphoric mood. The patient is not nervous/anxious. Physical Exam Constitutional: She is oriented to person, place, and time. She appears well- developed and well-nourished. Eyes: EOM are normal. Cardiovascular: Normal rate. Pulmonary/Chest: Effort normal. Musculoskeletal: She exhibits no tenderness. Neurological: She is alert and oriented to person, place, and time. Skin: Skin is dry. Psychiatric: She has a normal mood and affect. Ortho Exam Neurologic Exam Mental Status Oriented to person, place, and time. Cranial Nerves CN III, IV, Extraocular motions are normal. OBJECTIVE: Gait: Normal. Patient can heel and toe walk without difficulty. No spine tenderness. Truncal flexion with fingertips to toes. Truncal extension: 25 degrees. No pain elicited with either motion. Strength: 5/5 with IP, quads, hamstrings, TA, EHL, peroneals, gastrocnemius bilaterally. Sensation to light touch intact throughout lower extreme is bilaterally. Reflexes: Patellar: Absent bilaterally, Achilles: Absent bilaterally. Ankle clonus: Negative. Bianca's: Negative. Vascular: Posterior tibialis: 2+ bilaterally. SLR: Negative bilaterally. Audra's: 0/5. Hip range of motion: Full and painless. Siddhartha's: Negative bilaterally. Imaging: Today, 03/09/2018, I ordered plain radiographs and independently reviewed following: Lumbar plain radiographs, AP/LAT/flex/ex, 03/09/2018: Hardware appears intact with a solid fusion. L1-L2: Loss of disc height. Grade 1 retrolisthesis which increases in flexion and reduces in extension. New compared to prior imaging in 2012. 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 Lumbar plain films demonstrate intact instrumentation and solid fusion at L3-S1 w/ adjacent segment disease and mobile spondylolisthesis of L1-L2. Denies constitutional symptoms. We discussed multiple treatment options including physical therapy, medical management, injection therapy, and surgical consultation. At this point, Sunshine would like to proceed with physical therapy, as she has not done this in several years. She will phone follow-up if her LBP or LLE symptoms recur. At that point, consider lumbar SPECT-CT. PLAN: 1. Begin physical therapy and progressive home exercise program. 2. If symptoms return, phone follow-up and schedule lumbar SPECT-CT. 3. Continue medications as prescribed by PCP. 4. NSAIDs, APAP, heat, ice, theracane as needed 5. Continue with scheduled follow-up follow-up w/ Dr. Adolfo Carreno, oncologist in 5 months. 6. Activities as tolerated. Dr. Schaffer was available for consultation, however a consult was not required. All or part of this document has been prepared with speech recognition software and/or keyboard data coordinator techniques. Minor irregularities may be present. Other Orders Placed This Visit Procedures ??? Amb Consult/Follow Up Physical Therapy documented in this encounter Plan of Treatment Upcoming Encounters Date Type Department Care Team (Late st Contact Info) Description 04/02/2024 10:30 EDT Appointment [facility] Interventional Radiology Unit [address] [place] [address] [phone] 04/02/2024 15:15 EDT Office Visit [facility] Surgical Oncology - Main [address] [phone] Adolfo Carreno MD [address] [place] [address] 2 [place] [phone] 04/05/2024 9:30 EDT Telemedicine [facility] [address] [place] [address] [phone] Chichi Woods MD [address] [place] [phone] 04/11/2024 15:00 EDT Telemedicine [facility] Hematology & Oncology - [address] [phone] Alisson Carreon MD [address] [place] [address] 2 [place] [phone] 04/13/2024 13:30 EDT Appointment [facility] Hematology & Oncology - [address] [phone] 04/13/2024 14:00 EDT Appointment [facility] Hematology & Oncology - [address] [phone] 04/16/2024 10:00 EST Telemedicine [facility] - [facility] Palliative Care Services [address] [place] [address] 690201 Chichi Woods MD [address] [place] [address] [phone] 04/24/2024 9:00 EST Appointment [facility] Radiology CT Outpatient - [address] [id number] 04/24/2024 11:00 EST Appointment [facility] Breast Imaging - [address] [phone] 04/27/2024 12:00 EST Appointment [facility] Hematology & Oncology [address] [address] 05/02/2024 15:00 EST Telemedicine [facility] Hematology & Oncology [address] [phone] Alisson Carreon MD [address] [place] [address], Level 2 [place] [phone] 05/04/2024 10:15 EST Ancillary Procedure [facility] Cardiology - [place] [address] 05/04/2024 11:30 EST Appointment [facility] Hematology & Oncology [address] [phone] 05/04/2024 12:00 EST Appointment [facility] Hematology & Oncology [address] [address] 06/12/2024 13:00 EST Appointment [facility] Radiology CT - [address] [phone] Scheduled Referrals Name Type Priority Associated Diagnoses Orde r Schedule AMB CONS/FOLLOW UP PHYSICAL THERAPY Outpatient Referral Routine Chronic bilateral low back pain without sciatica Ordered: 03/09/2018 documented as of this encounter Visit Diagnoses Diagnosis Chronic bilateral low back pain without sciatica- Primary documented in this encounter Care Teams Cad Cam Programmer Relationship Specialty Start Date End Date Linda Blancas MD [facility] [address] [place] [address] PCP - General 01/06/11 documented as of this encounter
--- OUTSIDE RECORDS SUMMARY | 2024-03-20 15:04 | XMS_ITS | Encounter Summary ---
Author Organization [facility] Address [address] [place] [address] Care Team Providers Care Jail Manager Name Role Phone Linda Blancas MD Primary Care Provider [phone] Reason for Visit * Reason Comments Post-OP Follow Up implant exchange, fa t grafting Encounter Details Date Type Department Care Team (Latest Contact Info) Description 06/08/2018 11:20 EST Office Visit [facility] Plastic, Reconstructive & Cosmetic Surgery - [address], [address] [place], [place] [phone] Deana Shaw, PA-C [address] [place] [address] [place] [phone] Surgical follow-up care (Primary Dx) Social History [...] Progress Notes * Deana Shaw PA-C - 06/08/2018 1120 EST SUBJECTIVE: Sunshine Pleitez returns in followup from breast implant exchange and fat grafting of breast on 05/30/2018. She is doing well. No acute complaints of illness. She does state she wassurprised at how much smaller her implants are after this surgery. OBJECTIVE: On examination, she is in no distress. Her incisions are healing well, without erythema,drainage, palpable fluid collection, or dehiscence. Breast implants are soft. IMPRESSION: Doing well; one week post op PLAN: Continue surgical bra and activity restrictions. Follow up at [address] Boss to discuss results. Patient comfortable with plan. Deana Shaw PA-C documented in this encounter Plan of Treatment Upcoming Encounters Date Type Department Care Team (Late st Contact Info) Description 04/02/2024 10:30 EDT Appointment [facility] Interventional Radiology Unit [address] [place] [address] [phone] 04/02/2024 15:15 EDT Office Visit [facility] Surgical Oncology - [facility] [address] [place], [place] [address] Adolfo Carreno MD [address], [facility], Level [address] [place] [phone] 04/05/2024 9:30 EDT Telemedicine [facility] - [facility] Palliative Care Services [address] [place], [place] 849[address] Chichi Woods MD [address], [address] [place] [phone] 04/11/2024 15:00 EDT Telemedicine [facility] Hematology & Oncology - [address] [phone] Alisson Carreon MD [address] [place] [address] 2 [place] [phone] 04/13/2024 13:30 EDT Appointment [facility] Hematology & Oncology [address] [place] [address] [phone] 04/13/2024 14:00 EDT Appointment [facility] Hematology & Oncology [address] [place] [address] [phone] 04/16/2024 10:00 EST Telemedicine [facility] - [facility] Palliative Care Services [address] [place] [phone] Chichi Woods MD [address] [place] [address] [address] [place] [phone] 04/24/2024 9:00 EST Appointment [facility] Radiology CT Outpatient - [address] [phone] 04/24/2024 11:00 EST Appointment [facility] Breast Imaging - [address] [phone] 04/27/2024 12:00 EST Appointment [facility] Hematology & Oncology - [address] [phone] 05/02/2024 15:00 EST Telemedicine [facility] Hematology & Oncology - [address] [phone] Alisson Carreon MD [address] [place] [address] 2 [place] [phone] 05/04/2024 10:15 EST Ancillary Procedure [facility] Cardiology - [address] [place] [address] 05/04/2024 11:30 EST Appointment [facility] Hematology & Oncology [address] [phone] 05/04/2024 12:00 EST Appointment [facility] Hematology & Oncology [address] [phone] 06/12/2024 13:00 EST Appointment [facility] Radiology CT [address] [phone] documented as of this encounter Visit Diagnoses Diagnosis Surgical follow-up care- Primary Follow-up examination, following unspecified surgery documented in this encounter Care Teams Jail Manager Relationship Specialty Start Date End Date Linda Blancas MD [facility] [address] [place] [address] PCP - General 01/06/11 documented as of this encounter
--- OUTSIDE RECORDS SUMMARY | 2024-03-20 15:04 | XMS_ITS | Encounter Summary ---
Author Organization [facility] Address [address] [place] [address] Care Team Providers Care Photo Offset Printer Name Role Phone Linda Blancas MD Primary Care Provider [phone] Reason for Visit * Reason Onset Date Comments Results 05/19/2018 Encounter Details Date Type Department Care Team (Late st Contact Info) Description 05/19/2018 Telephone [facility] Hematology & Oncology - [facility] [address] [place] [address] Doris Anthony, RN [address] [place] [address] Results Social History Tobacco Use Types Packs/Day [...] encounter Miscellaneous Notes * Telephone Encounter - Doris Anthony RN - 05/19/2018 1853 EST As requested by Dr Colin, a general message with no specific identifiers has been left for the patient to reassure her recent bone scan results show no metastatic disease in the bones. CT results confirm stable nodules in her lungs. She has been invited to return a call to the Cancer Center to discuss further if desired. documented in this encounter Plan of Treatment Upcoming Encounters Date Type Department Care Team (Late st Contact Info) Description 04/02/2024 10:30 EDT Appointment [facility] Interventional Radiology Unit [address] [place] [address] [phone] 04/02/2024 15:15 EDT Office Visit [facility] Surgical Oncology - [address] [phone] Adolfo Carreno MD [address] [place] [phone] 04/05/2024 9:30 EDT Telemedicine [facility] - [facility] Palliative Care Services [address] [place] [address] [phone] Chichi Woods MD [address] [place] [phone] 04/11/2024 15:00 EDT Telemedicine [facility] Hematology & Oncology - [address] [phone] Alisson Carreon MD [address] [place] [address] 2 [place] [phone] 04/13/2024 13:30 EDT Appointment [facility] Hematology & Oncology - [address] [phone] 04/13/2024 14:00 EDT Appointment [facility] Hematology & Oncology - [address] [address] 04/16/2024 10:00 EST Telemedicine [facility] - [facility] Palliative Care Services [address] [place] [address] [phone] Chichi Woods MD [address] [place] [address] [phone] 04/24/2024 9:00 EST Appointment [facility] Radiology CT Outpatient - [address] [address] 04/24/2024 11:00 EST Appointment [facility] Breast Imaging - [facility] [address] [phone] 04/27/2024 12:00 EST Appointment [facility] Hematology & Oncology - [address] [phone] 05/02/2024 15:00 EST Telemedicine [facility] Hematology & Oncology - [address] [address] Alisson Carreon MD [address] [place] [address], [address] [place] [phone] 05/04/2024 10:15 EST Ancillary Procedure [facility] Cardiology - [place] [address] 05/04/2024 11:30 EST Appointment [facility] Hematology & Oncology - [address] [phone] 05/04/2024 12:00 EST Appointment [facility] Hematology & Oncology - [address] 352241 06/12/2024 13:00 EST Appointment [facility] Radiology CT - [address] [phone] documented as of this encounter Visit Diagnoses Not on filedocumented in this encounter Care Teams Photo Offset Printer Relationship Specialty Start Date End Date Linda Blancas MD [facility] [address] [place] [address] PCP - General 01/06/11 documented as of this encounter
--- OUTSIDE RECORDS SUMMARY | 2024-03-20 15:04 | XMS_ITS | Encounter Summary ---
Author Organization [facility] Address [address] [place] [address] Care Team Providers Care Behavioral Technician Name Role Phone Linda Blancas MD Primary Care Provider [phone] Reason for Visit * Reason Comments Follow-up TE check Encounter Details Date Type Department Care Team (Late st Contact Info) Description 05/17/2018 10:40 EST Office Visit [facility] Plastic, Reconstructive & Cosmetic Surgery - [address], [address] [place], [place] [address] Karen Singh PA-C [address] [facility] [address] [place] [phone] S/P breast reconstruction, right (Primary Dx) [...] Progress Notes * Karen Singh PA - 05/17/2018 1040 EST SUBJECTIVE: Sunshine is here for follow up regarding her right reconstruction; presumed leak I the TE. She feels deflated on the right. She denies trauma/injury causing the SX. Review of Systems Constitutional: Negative for chills and fever. Respiratory: Negative for cough and shortness of breath. Cardiovascular: Negative for chest pain. Musculoskeletal: Negative for falls. Skin: Negative for itching and rash. Endo/Heme/Allergies: Does not bruise/bleed easily. OBJECTIVE: On physical examination today the closure is in tact. There is no evidence of hematoma, seroma, infection, or drainage. All flaps are fully viable. Presumed TE volume loss - Photos compared from 03/24/18 visit prior to leak. Marked TE deflation with palpation. ASSESSMENT & PLAN: Discussed case with Dr. Boss. We will fill today to recapture as much volume as possible. After verbal informed consent was obtained the port was located magnetically and marked.? Chlorhexidine was used for sterilization.?? Using standard sterile technique and a closed system the port was accessed and the obstetrics tech filled with 125 cc of injectable saline.?? The patient tolerated the procedure well.?? Access site was dressed with a spot Band-Aid to be removed tomorrow.?? Dr. Boss to see patient on 05/25/18; possible early exchange date to be scheduled. TANK Dawn 05/17/2018 12:00 documented in this encounter Plan of Treatment Upcoming Encounters Date Type Department Care Team (Late st Contact Info) Description 04/02/2024 10:30 EDT Appointment [facility] Interventional Radiology Unit [address] [place] [address] 04/02/2024 15:15 EDT Office Visit [facility] Surgical Oncology - [address] 720761 Adolfo Carreno MD [address] [place] [phone] 04/05/2024 9:[address] [facility] Palliative Care Services [address] [place] [address] 360351 Chichi Woods MD [address] [place] [address] [phone] 04/11/2024 15:00 EDT Telemedicine [facility] Hematology & Oncology - [address] 537121 Alisson Carreon MD [address] [place] [address] [phone] 04/13/2024 13:30 EDT Appointment [facility] Hematology & Oncology - [address] [phone] 04/13/2024 14:00 EDT Appointment [facility] Hematology & Oncology - [address] [address] 04/16/2024 10:[address] [facility] Palliative Care Services [address] [place] [address] [phone] Chichi Woods MD [address] [place] [address] [phone] 04/24/2024 9:00 EST Appointment [facility] Radiology CT Outpatient - [address] [address] 04/24/2024 11:00 EST Appointment [facility] Breast Imaging - [address] [place], [place] 0[address] 04/27/2024 12:00 EST Appointment [facility] Hematology & Oncology [address] [address] 05/02/2024 15:00 EST Telemedicine [facility] Hematology & Oncology [address] 424771 Alisson Carreon MD [address] [place] [address], Level [address] [place] [phone] 05/04/2024 10:15 EST Ancillary Procedure [facility] Cardiology - [address] [place] [address] 05/04/2024 11:30 EST Appointment [facility] Hematology & Oncology [address] 368251 05/04/2024 12:00 EST Appointment [facility] Hematology & Oncology [address] [phone] 06/12/2024 13:00 EST Appointment [facility] Radiology CT - [address] [phone] documented as of this encounter Visit Diagnoses Diagnosis S/P breast reconstruction, right- Primary Breast replaced by other means documented in this encounter Care Teams Behavioral Technician Relationship Specialty Start Date End Date Linda Blancas MD [facility] [address] [place] [address] PCP - General 01/06/11 documented as of this encounter
--- OUTSIDE RECORDS SUMMARY | 2024-03-20 15:04 | XMS_ITS | Encounter Summary ---
Author Organization [facility] Address [address] [place] [address] Care Team Providers Care White Shoe Ragger Name Role Phone Linda Blancas MD Primary Care Provider [phone] Reason for Visit * Reason Onset Date Comments Other 05/16/2018 Encounter Details Date Type Department Care Team (Late st Contact Info) Description 05/16/2018 Telephone [facility] Plastic, Reconstructive & Cosmetic Surgery - [address], [address] [place] [address] Tylor Boss MD [address] [phone] Other Social History Tobacco Use Types [...] encounter Miscellaneous Notes * Telephone Encounter - Catherine Nicole - 06/08/2018 1423 EST Left message to reschedule. * Telephone Encounter - Cristy Rios RN - 05/16/2018 1346 EST I called Sunshine back. She stated that her noticed that her right breast, which has an computer application developer/ filled with 500 cc felt softer and not as full as it has been. She questions if the computer application developer is leaking. She does not have any signs of infection and is not experiencing any pain. She is feeling well. This was discussed with TANK Abebe and she suggests that patient be scheduled to come into this office for further evaluation of possible ruptured computer application developer. Patient is aware and is scheduled to be seen tomorrow, 05/17/18. CRISTY RIOS RN * Telephone Encounter - Nona Rosen - 05/16/2018 1152 EST Sendy said she is noticing some changes with her computer application developer, and is wondering if she can come in and be checked out this week documented in this encounter Plan of Treatment Upcoming Encounters Date Type Department Care Team (Late st Contact Info) Description 04/02/2024 10:30 EDT Appointment [facility] Interventional Radiology Unit [address] [place] [address] 04/02/2024 15:15 EDT Office Visit [facility] Surgical Oncology - [place] [address] [place] [address] Adolfo Carreno MD [address] [place] [address] 2 [place] [phone] 04/05/2024 9:30 EDT Telemedicine [facility] [address] [place] [address] [id number] Chichi Woods MD [address] [place] [phone] 04/11/2024 15:00 EDT Telemedicine [facility] Hematology & Oncology - [address] [phone] Alisson Carreon MD [address] [place] [address] 2 [place] [phone] 04/13/2024 13:30 EDT Appointment [facility] Hematology & Oncology - [address] [phone] 04/13/2024 14:00 EDT Appointment [facility] Hematology & Oncology - [address] [phone] 04/16/2024 10:00 EST Telemedicine [facility] Palliative Care Services [address] [place] [address] [phone] Chichi Woods MD [address] [place] [phone] 04/24/2024 9:00 EST Appointment [facility] Radiology CT Outpatient - [address] [id number] 04/24/2024 11:00 EST Appointment [facility] Breast Imaging - [address] [phone] 04/27/2024 12:00 EST Appointment [facility] Hematology & Oncology [address] [phone] 05/02/2024 15:00 EST Telemedicine [facility] Hematology & Oncology [address] 678211 Alisson Carreon MD [address] [place] [address], Level [address] [place] [phone] 05/04/2024 10:15 EST Ancillary Procedure [facility] Cardiology - [place] [place] [address] 05/04/2024 11:30 EST Appointment [facility] Hematology & Oncology [address] [phone] 05/04/2024 12:00 EST Appointment [facility] Hematology & Oncology [address] 350411 06/12/2024 13:00 EST Appointment [facility] Radiology CT - [address] [phone] documented as of this encounter Visit Diagnoses Not on filedocumented in this encounter Care Teams White Shoe Ragger Relationship Specialty Start Date End Date Linda Blancas MD [facility] [address] [place] [address] PCP - General 01/06/11 documented as of this encounter
--- OUTSIDE RECORDS SUMMARY | 2024-03-20 15:04 | XMS_ITS | Encounter Summary ---
Author Organization [facility] Address [address] [place] [address] Care Team Providers Care Brim Stiffener Name Role Phone Linda Blancas MD Primary Care Provider [phone] Reason for Referral * Radiology Services (Routine) - New Request Specialty Diagnoses / Procedures [facility] To Contact Diagnoses Personal history of malignant neoplasm of breast Metastatic breast cancer Procedures CT CHEST W CONTRAST Augustina Colin MD PhD Referral ID Status Reason Start Date Expiration Date V isits Requested Visits Authorized [id number] New Request 04/24/2018 1 1 Reason for Visit * Reason Onset Date Comments Appointment Related 04/16/2018 Follow-up 04/24/2018 Reschedule Encounter Details Date Type Department Care Team (Late st Contact Info) Description 04/16/2018 Telephone [facility] Hematology & Oncology - [facility] [address] [place] [address] Augustina Colin MD PhD Appointment Related; Follow-up (Reschedule ) Social History Tobacco Use Types Packs/Day [...] encounter Miscellaneous Notes * Telephone Encounter - Karen Peralta - 04/24/2018 1444 EST LMOM for Sunshine, Rescheduled for BONE SCAN and CT SCAN on 05/18. Check in at 9:30AM, 10AM for injection, and scans at 1pm and 3pm. Left our number to call back if we need to reschedule * Telephone Encounter - Holly Whitley RN - 04/24/2018 1222 EST Patient had to cancel CT chest and NM bone scan due to in family. New orders have been placedso could be rescheduled. * Telephone Encounter - Anusha Kendall - 04/24/2018 1023 EST Pt is calling to reschedule her Radiology appts that she missed due to her sisters . Please reach out * Telephone Encounter - Kody Judd - 04/16/2018 1555 EST PAS Message: Sunshine called to cancel her radiology tests scheduled for 04/18/18 that were ordered by Dr. Colin: CT CHEST W CONTRAST 04/18/18 10:00 NM BONE SCAN WHOLE BODY 04/18/18 12:00 She had a in the family and is going out of town today. She will follow up with the clinic, likely on Tuesday, to work on rescheduling those tests before her appointment with Dr. Colin in May. documented in this encounter Plan of Treatment Upcoming Encounters Date Type Department Care Team (Late st Contact Info) Description 04/02/2024 10:30 EDT Appointment [facility] Interventional Radiology Unit [address] [place] [address] [phone] 04/02/2024 15:15 EDT Office Visit [facility] Surgical Oncology - [address] [phone] Adolfo Carreno MD [address] [place] [phone] 04/05/2024 9:30 EDT Telemedicine [facility] Palliative Care Services [address] [place] [address] [phone] Chichi Woods MD [address] [place] [address] [phone] 04/11/2024 15:00 EDT Telemedicine [facility] Hematology & Oncology [address] [phone] Alisson Carreon MD [address] [place] [address] [phone] 04/13/2024 13:30 EDT Appointment [facility] Hematology & Oncology [address] [phone] 04/13/2024 14:00 EDT Appointment [facility] Hematology & Oncology [address] 322271 04/16/2024 10:00 EST Telemedicine [facility] Palliative Care Services [address] [place] [address] [phone] Chichi Woods MD [address] [place] [address], [address] [place] [phone] 04/24/2024 9:00 EST Appointment [facility] Radiology CT Outpatient - [address] [id number] 04/24/2024 11:00 EST Appointment [facility] Breast Imaging - [facility] [address] [place], [place] [phone] 04/27/2024 12:00 EST Appointment [facility] Hematology & Oncology - [address] [phone] 05/02/2024 15:00 EST Telemedicine [facility] Hematology & Oncology - [address] [address] Alisson Carreon MD [address] [place] [address], [facility], Level 2 [place] [phone] 05/04/2024 10:15 EST Ancillary Procedure [facility] Cardiology - [address] [place], [place] [phone] 05/04/2024 11:30 EST Appointment [facility] Hematology & Oncology - [address] [id number] 05/04/2024 12:00 EST Appointment [facility] Hematology & Oncology [address] [phone] 06/12/2024 13:00 EST Appointment [facility] Radiology CT - [address] [phone] documented as of this encounter Procedures Procedure Name Priority Date/Time Associated Diagnosis Comments NM BONE SCAN WHOLE BODY Routine 05/18/2018 13:[address] CHEST W CONTRAST Routine 05/18/2018 1 0:44 EST Personal history of malignant neoplasm of breast Metastatic breast cancer (HCC-CMS) documented in this encounter Results * NM BONE SCAN WHOLE BODY (05/18/2018 13:43 EST) Anatomical Region Laterality Modality Other 05/18/2018 13:4 3 EST 05/18/2018 16:29 EST Narrative 05/18/2018 16:29 EST NM BONE SCAN WHOLE BODY ??05/18/2018 1:43 PM Signs and Symptoms/Comments: ?? Z85.3-Personal history of malignant neoplasm of [id number]-ZMJ-33 C50.919-Malignant neoplasm of unspecified site of unspecified female breast (HCC-CMS)-ICD-10; metastatic breast cancer Technique: Nub-pkb-uaf-half hours after the IV injection of 18.95 mCi Tc-99m MDP, standard whole body bone images were obtained. Findings: There is increased radiotracer uptake in both shoulders, both ankles, and both great toes that are degenerative. ??Increased radiotracer uptake in the lumbar spine is consistent with the patient's known hardware and degenerative disc disease. No concerning focus of radiotracer activity is seen. Impression: No evidence of osseous metastatic disease. I have personally reviewed the images and the above interpretation and agree with the findings. Procedure Note Samuel Bowen MD - 05/18/2018 NM BONE SCAN WHOLE BODY 05/18/2018 1:43 PM Signs and Symptoms/Comments: Z85.3-Personal history of malignant neoplasm of [id number]-TTV-30 C50.919-Malignant neoplasm of unspecified site of unspecified female breast (HCC-CMS)-ICD-10; metastatic breast cancer Technique: Zwd-qok-tor-half hours after the IV injection of 18.95 mCi Tc-99m MDP, standard whole body bone images were obtained. Findings: There is increased radiotracer uptake in both shoulders, both ankles, and both great toes that are degenerative. Increased radiotracer uptake in the lumbar spine is consistent with the patient's known hardware and degenerative disc disease. No concerning focus of radiotracer activity is seen. Impression: No evidence of osseous metastatic disease. I have personally reviewed the images and the above interpretation and agree with the findings. Augustina Colin MD PhD IMG NM ORDERABLES * CT CHEST W CONTRAST (05/18/2018 10:44 EST) Anatomical Region Laterality Modality Other 05/18/2018 10:4 4 EST 05/18/2018 13:21 EST Narrative 05/18/2018 13:[address] CHEST W CONTRAST ??05/18/2018 10:44 AM Signs and Symptoms/Comments: ??Z85.3-Personal history of malignant neoplasm of [id number]-[id number]-47 C50.919-Malignant neoplasm of unspecified site of unspecified female breast (HCC-CMS)-ICD-10; metastatic breast cancer, evaluate stability of metastatic disease Technique: A single breath-hold helical CT acquisition was performed through the chest on a multidetector-row scanner with a reconstructed slice thickness of 3 mm and retrospectively reconstructed 0.9 mm thick sections with 0.45 mm overlapping intervals. ??The scans were obtained from the lung apices through the bases during the intravenous administration of 90-100 cc of 370 mg% nonionic contrast injected at a rate of 2 cc/second. Scans were reviewed on a dedicated PACS workstation for analysis. Comparison: CT chest 8 months prior. Findings: There is a subpectoral tissue banbury mill operator within the right chest wall. There is a retropectoral saline breast implant on the left. There is stable size of a nonenlarged left supraclavicular lymph node (#23). No enlarged mediastinal or hilar lymph nodes are present. The large airways are normal. There are stable 1-2 mm nodules in the periphery left upper lobe (axial #131 and 126). There is additional stability of a 3 mm nodule within the superior segment of the right lower lobe (#200). Stable 1-2 mm along the left oblique fissure in a subpleural distribution (axial #172 and 181). No new or enlarging nodules or masses are present within lungs. Aside from dependent atelectasis, the lungs are clear. No pleural abnormalities are present. The visualized portions of the upper abdomen are normal. The bones are normal for age. IMPRESSION: 1. Multiple stable 1 to 3 mm nodules within the lungs. Procedure Note Don Prakash MD - 05/18/2018 CT CHEST W CONTRAST 05/18/2018 10:44 AM Signs and Symptoms/Comments: Z85.3-Personal history of malignant neoplasm of [id number]-KFJ-38 C50.919-Malignant neoplasm of unspecified site of unspecified female breast (HCC-CMS)-ICD-10; metastatic breast cancer, evaluate stability of metastatic disease Technique: A single breath-hold helical CT acquisition was performed through the chest on a multidetector-row scanner with a reconstructed slice thickness of 3 mm and retrospectively reconstructed 0.9 mm thick sections with 0.45 mm overlapping intervals. The scans were obtained from the lung apices through the bases during the intravenous administration of 90-100 cc of 370 mg% nonionic contrast injected at a rate of 2 cc/second. Scans were reviewed on a dedicated PACS workstation for analysis. Comparison: CT chest 8 months prior. Findings: There is a subpectoral tissue banbury mill operator within the right chest wall. There is a retropectoral saline breast implant on the left. There is stable size of a nonenlarged left supraclavicular lymph node (#23). No enlarged mediastinal or hilar lymph nodes are present. The large airways are normal. There are stable 1-2 mm nodules in the periphery left upper lobe (axial #131 and 126). There is additional stability of a 3 mm nodule within the superior segment of the right lower lobe (#200). Stable 1-2 mm along the left oblique fissure in a subpleural distribution (axial #172 and 181). No new or enlarging nodules or masses are present within lungs. Aside from dependent atelectasis, the lungs are clear. No pleural abnormalities are present. The visualized portions of the upper abdomen are normal. The bones are normal for age. IMPRESSION: 1. Multiple stable 1 to 3 mm nodules within the lungs. Augustina Colin MD PhD IMG CT ORDERABLES documented in this encounter Visit Diagnoses Diagnosis Personal history of malignant neoplasm of breast- Primary Metastatic breast cancer documented in this encounter Care Teams Brim Stiffener Relationship Specialty Start Date End Date Linda Blancas MD [address] [place] [address] [address] [place] [address] PCP - General 01/06/11 documented as of this encounter
--- OUTSIDE RECORDS SUMMARY | 2024-03-20 15:04 | XMS_ITS | Encounter Summary ---
Author Organization [facility] Address [address] [place] [address] Care Team Providers Care Vulcanizer Name Role Phone Linda Blancas MD Primary Care Provider [phone] Reason for Visit * Reason Onset Date Comments Other 06/01/2018 Nausea Encounter Details Date Type Department Care Team (Late st Contact Info) Description 06/01/2018 Telephone [facility] Plastic, Reconstructive & Cosmetic Surgery - [address], [address] [place], [place] [phone] Tylor Boss MD [address] [phone] Other (Nausea) Social History Tobacco Use Types Packs/Day Years [...] encounter Miscellaneous Notes * Telephone Encounter - Brenda Ventura, SHELLEY - 06/01/2018 1500 EST Sunshine's said she took patch off because she kept touching it and touching her eyes? But she was nauseous so they were hoping for an oral anti nausea drug. Pain is well managed, and she will be taking a shower later today when she feels better. I spoke to Karen Samantha and she ordered Zofran 4mg, by mouth every 8 hours as needed for nausea# 15 escripted to [facility] in [place] BRENDA VENTURA RN * Telephone Encounter - Ivy Chen - 06/01/2018 1422 EST Nausea patch was removed because it kept coming off, now experiencing a lot of nausea, wonders if there's something else she can take. Uses [facility] in [place], [place] documented in this encounter Plan of Treatment Upcoming Encounters Date Type Department Care Team (Late st Contact Info) Description 04/02/2024 10:30 EDT Appointment [facility] Interventional Radiology Unit [address] [place], [place] 268151 04/02/2024 15:15 EDT Office Visit [facility] Surgical Oncology - [address] [phone] Adolfo Carreno MD [address] [facility], Level [address] [place] [phone] 04/05/2024 9:30 EDT Telemedicine [facility] Palliative Care Services [address] [place] [address] [phone] Chichi Woods MD [address] [place] [phone] 04/11/2024 15:00 EDT Telemedicine [facility] Hematology & Oncology - [address] [phone] Alisson Carreon MD [address] [place] [address], [address] [place] [phone] 04/13/2024 13:30 EDT Appointment [facility] Hematology & Oncology [address] [phone] 04/13/2024 14:00 EDT Appointment [facility] Hematology & Oncology [address] [phone] 04/16/2024 10:00 EST Telemedicine [facility] Palliative Care Services [address] [place] [address] [phone] Chichi Woods MD [address] [place] [phone] 04/24/2024 9:00 EST Appointment [facility] Radiology CT Outpatient - [address] [address] 04/24/2024 11:00 EST Appointment [facility] Breast Imaging - [address] [phone] 04/27/2024 12:00 EST Appointment [facility] Hematology & Oncology - [address] [phone] 05/02/2024 15:00 EST Telemedicine [facility] Hematology & Oncology - [address] [phone] Alisson Carreon MD [address] [facility], Level [address] [place] [phone] 05/04/2024 10:15 EST Ancillary Procedure [facility] Cardiology - [address] [place], [place] [phone] 05/04/2024 11:30 EST Appointment [facility] Hematology & Oncology - [address] [phone] 05/04/2024 12:00 EST Appointment [facility] Hematology & Oncology [address] [phone] 06/12/2024 13:00 EST Appointment [facility] Radiology CT - [address] [phone] documented as of this encounter Visit Diagnoses Not on filedocumented in this encounter Care Teams Vulcanizer Relationship Specialty Start Date End Date Linda Blancas MD [facility] [address] [place] [address] PCP - General 01/06/11 documented as of this encounter
--- OUTSIDE RECORDS SUMMARY | 2024-03-20 15:04 | XMS_ITS | Encounter Summary ---
Author Organization [facility] Address [address] [place] [address] Care Team Providers Care Restaurant Kitchen Manager Name Role Phone Linda Blancas MD Primary Care Provider [phone] Reason for Visit * Reason Comments Follow-up Encounter Details Date Type Department Care Team (Late st Contact Info) Description 07/31/2018 10:30 EST Office Visit [facility] Surgical Oncology - [address] [address] Adolfo Carreno MD [address] [place] [address], Level 2 [place] [address] Routine cancer follow-up visit (Primary Dx); Personal history of breast cancer Discharge Disposition: Auto Discharge Social History Tobacco [...] 03/24/2018 documented as of this encounter Discharge Disposition Disposition Code Departure Means Destination Auto Discharge documented in this encounter Progress Notes * Adolfo Carreno MD - 07/31/2018 1030 EST This office note has been dictated. * Adolfo Carreno MD - 07/31/2018 0000 EST [facility] BREAST CANCER PROGRAM PROGRESS / FOLLOWUP NOTE - 07/31/2018 SUBJECTIVE: The patient is seen in followup for a history of breast cancer. 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 She had a total mastectomy with reconstruction done at that time. She had a focally positive anterior margin. She opted not to do any additional treatments. She subsequently developed a recurrence of cancer in that breast, which was an invasive lesion involving the skin. Metastatic workup showed disease within the lungs and mediastinal lymph nodes. She was treated initially with letrozole and palbociclib, had an excellent responsewith decrease in volume of disease. She subsequently underwent a reexcision of the area of recurrent disease in the breast and removal of the implant and a new lime mixer tender placed. The patient has subsequently had that converted to a permanent implant. She has also had an implant placed on the left with mastopexy on the left. The patient recently had imaging, which showed decrease further in size of the lesions within the chest and it was decided at that point that they will hold on the palbocicliband continue on the letrozole. The patient is doing fairly well right now. OBJECTIVE: On exam, she is in no acute distress. She has no scleral icterus. There are no palpable neck masses, no cervical or supraclavicular lymph nodes are palpable. There are no nodules in her thyroid. No carotid bruits or JVD are noted. Lungs are clear to auscultation. Heart has a regular rateand rhythm without S3, S4, or murmurs. Breast exam reveals mastectomy on the right and the mastopexy on the left. No other skin changes are noted. Palpation of the right side reveals no palpable abnormality suspicious for recurrence. There are no palpable lymph nodes in the axilla. The left side has no discrete palpable abnormalities. There was no nipple discharge. There are no palpable lymph nodes in the axilla. There are no abdominal masses, no hepato or splenomegaly was noted. DIAGNOSTIC DATA: Ultrasound evaluation of the right mastectomy site shows no evidence of recurrent disease in the mastectomy bed. There are no abnormal lymph nodes seen in the internal mammary or axillary region. On the left side, the patient has normal-appearing fibroglandular breast tissue without any architectural changes, solid or cystic abnormalities. No abnormal lymph nodes were seen in theinternal mammary or axillary region. ASSESSMENT: The patient has no evidence of obvious recurrence. We will plan on having her return for followup with myself in 6 months. She will be due for repeat mammogram on the left side at around that time. Adolfo Carreno MD 11 43 AM - Adolfo Carreno MD ln Dictation ID: [id number] cc: Linda Blancas MD, [place] [id number] Augustina Colin MD, [facility] [place] - Hematology Oncology [address] [place] [address] Tylor Boss MD, [facility] - Plastic Surgery [address] [place] [address], [address], [place] [address] documented in this encounter Plan of Treatment Upcoming Encounters Date Type Department Care Team (Late st Contact Info) Description 04/02/2024 10:30 EDT Appointment [facility] Interventional Radiology Unit [address] [place] [address] 04/02/2024 15:15 EDT Office Visit [facility] Surgical Oncology - [facility] [place] [address] [place] [address] Adolfo Carreno MD [address] [place] [address], [facility] [address] [place] [phone] 04/05/2024 9:30 EDT Telemedicine [facility] Palliative Care Services [address] [place] [address] [phone] Chichi Woods MD [address] [place] [address] [phone] 04/11/2024 15:00 EDT Telemedicine [facility] Hematology & Oncology - [address] 426761 Alisson Carreon MD [address] [place] [address] 2 [place] [phone] 04/13/2024 13:30 EDT Appointment [facility] Hematology & Oncology - [address] [id number] 04/13/2024 14:00 EDT Appointment [facility] Hematology & Oncology - [address] [id number] 04/16/2024 10:00 EST Telemedicine [facility] - [facility] Palliative Care Services [address] [place] [address] [phone] Chichi Woods MD [address] [place] [address] [phone] 04/24/2024 9:00 EST Appointment [facility] Radiology CT Outpatient - [address] [id number] 04/24/2024 11:00 EST Appointment [facility] Breast Imaging - [address] 668481 04/27/2024 12:00 EST Appointment [facility] Hematology & Oncology [address] 478581 05/02/2024 15:00 EST Telemedicine [facility] Hematology & Oncology [address] [phone] Alisson Carreon MD [address] [place] [address], Level [address] [place] [phone] 05/04/2024 10:15 EST Ancillary Procedure [facility] Cardiology - [place] [address] 05/04/2024 11:30 EST Appointment [facility] Hematology & Oncology [address] 032871 05/04/2024 12:00 EST Appointment [facility] Hematology & Oncology [address] [id number] 06/12/2024 13:00 EST Appointment [facility] Radiology CT - [address] [id number] documented as of this encounter Procedures Procedure Name Priority Date/Time Associated Diagnosis Comments ORDERS - SCANNED 08/03/2018 20:49 EST documented in this encounter Results * ORDERS - SCANNED (08/03/2018 20:49 EST) 08/03/2018 20:4 9 EST Scan 2 Screenplay Writer ADMISSION ORDERABLE S documented in this encounter Visit Diagnoses Diagnosis Routine cancer follow-up visit- Primary Other follow-up examination Personal history of breast cancer Personal history of malignant neoplasm of breast documented in this encounter Historical Medications * This list may reflect changes made after this encounter. Medication Sig Dispensed Refills Start Date End Date mv-mn/C/glutamin/lysin/he rb124 (AIR[place]ORNE, ASCORBATE SODIUM, ORAL) Take by mouth as needed. 12/14/2023 added in this encounter Care Teams Restaurant Kitchen Manager Relationship Specialty Start Date End Date Linda Blancas MD [address] [place] [address] PCP - General 01/06/11 documented as of this encounter
--- OUTSIDE RECORDS SUMMARY | 2024-03-20 15:04 | XMS_ITS | Encounter Summary ---
Author Organization [facility] Address [address] [place] [address] Care Team Providers Care Utility Operator Name Role Phone Linda Blancas MD Primary Care Provider [phone] Encounter Details Date Type Department Care Team (Late st Contact Info) Description 06/01/2018 Orders Only [facility] Plastic, Reconstructive & Cosmetic Surgery - [address], [address] [place] [address] Brenda Ventura RN Social History Tobacco Use Types Packs/Day [...] 8 hours as needed for Nausea. 15 Tab 06/01/2018 08/22/2018 documented in this encounter Plan of Treatment Upcoming Encounters Date Type Department Care Team (Late st Contact Info) Description 04/02/2024 10:30 EDT Appointment [facility] Interventional Radiology Unit [address] [place] [address] 198591 04/02/2024 15:15 EDT Office Visit [facility] Surgical Oncology - [address] 740951 Adolfo Carreno MD [address] [place] [address] [phone] 04/05/2024 9:30 EDT Telemedicine [facility] - [facility] Palliative Care Services [address] [place] [address] [phone] Chichi Woods MD [address] [place] [address] [phone] 04/11/2024 15:00 EDT Telemedicine [facility] Hematology & Oncology [address] [phone] Alisson Carreon MD [address] [place] [address] [phone] 04/13/2024 13:30 EDT Appointment [facility] Hematology & Oncology [address] 018451 04/13/2024 14:00 EDT Appointment [facility] Hematology & Oncology [address] 168331 04/16/2024 10:00 EST Telemedicine [facility] - [facility] Palliative Care Services [address] [place] [address] [phone] Chichi Woods MD [address] [place] [address], [address] [phone] 04/24/2024 9:00 EST Appointment [facility] Radiology CT Outpatient - [address] [id number] 04/24/2024 11:00 EST Appointment [facility] Breast Imaging - [facility] S [place] [address] [place], [place] 414871 04/27/2024 12:00 EST Appointment [facility] Hematology & Oncology - [address] [phone] 05/02/2024 15:00 EST Telemedicine [facility] Hematology & Oncology - [address] 411361 Alisson Carreon MD [address] [place] [address], [facility], Level 2 [place] [phone] 05/04/2024 10:15 EST Ancillary Procedure [facility] Cardiology [place] [address] [place] [address] 05/04/2024 11:30 EST Appointment [facility] Hematology & Oncology - [address] [id number] 05/04/2024 12:00 EST Appointment [facility] Hematology & Oncology [address] [phone] 06/12/2024 13:00 EST Appointment [facility] Radiology CT - [address] [phone] documented as of this encounter Visit Diagnoses Not on filedocumented in this encounter Care Teams Utility Operator Relationship Specialty Start Date End Date Linda Blancas MD [address] [place] [address] PCP - General 01/06/11 documented as of this encounter
--- OUTSIDE RECORDS SUMMARY | 2024-03-20 15:04 | XMS_ITS | Encounter Summary ---
Author Organization [facility] Address [address] [place] [address] Care Team Providers Care Monorail Hooker Name Role Phone Linda Blancas MD Primary Care Provider [phone] Reason for Visit * Reason Onset Date Comments Appointment Related 03/24/2018 Encounter Details Date Type Department Care Team (Late st Contact Info) Description 03/24/2018 Telephone [facility] Plastic, Reconstructive & Cosmetic Surgery - [address], [address] [place], [place] [address] Tylor Boss MD [address] [phone] Appointment Related Social History Tobacco [...] * Telephone Encounter - Dasha Lockhart - 03/24/2018 1331 EDT Your surgery is scheduled on 04/10/2018 Please check in at the registration department at [address] [place] [address] in [place], [place] at: Check in time: 6:00:00 AM Your surgery is scheduled for 07:25am No solid foods after midnight the night before surgery. Clear fluids are okay for up to 4 hours prior to surgery. * Take Medications as directed with a small sip of water * Removal all jewelry prior to arriving at the hospital * Shower with antibacterial soap the night prior and morning of your surgery * You will need a dedicated driver to transport you home Bus, Taxi, Uber are NOT acceptable transportation documented in this encounter Plan of Treatment Upcoming Encounters Date Type Department Care Team (Late st Contact Info) Description 04/02/2024 10:30 EDT Appointment [facility] Interventional Radiology Unit [address] [place] [address] [phone] 04/02/2024 15:15 EDT Office Visit [facility] Surgical Oncology - [address] [phone] Adolfo Carreno MD [address] [facility], Level 2 [place] [phone] 04/05/2024 9:30 EDT Telemedicine [facility] - [facility] Palliative Care Services [address] [place] [address] [phone] Chichi Woods MD [address] [place] [address], [address] [phone] 04/11/2024 15:00 EDT Telemedicine [facility] Hematology & Oncology - [address] 134561 Alisson Carreon MD [address] [place] [address], [facility] 2 [place] [phone] 04/13/2024 13:30 EDT Appointment [facility] Hematology & Oncology - [address] [phone] 04/13/2024 14:00 EDT Appointment [facility] Hematology & Oncology [address] [id number] 04/16/2024 10:00 EST Telemedicine [facility] - [facility] Palliative Care Services [address] [place] [address] Chichi Woods MD [address] [place] [address] [phone] 04/24/2024 9:00 EST Appointment [facility] Radiology CT Outpatient - [address] [id number] 04/24/2024 11:00 EST Appointment [facility] Breast Imaging - [facility] S [address] 904441 04/27/2024 12:00 EST Appointment [facility] Hematology & Oncology - [address] [id number] 05/02/2024 15:00 EST Telemedicine [facility] Hematology & Oncology [address] [phone] Alisson Carreon MD [address] [place] [address], [facility] 2 [place] [phone] 05/04/2024 10:15 EST Ancillary Procedure [facility] Cardiology [place] [place] [address] 05/04/2024 11:30 EST Appointment [facility] Hematology & Oncology [address] [id number] 05/04/2024 12:00 EST Appointment [facility] Hematology & Oncology [address] [phone] 06/12/2024 13:00 EST Appointment [facility] Radiology CT - [address] [phone] documented as of this encounter Visit Diagnoses Not on filedocumented in this encounter Care Teams Monorail Hooker Relationship Specialty Start Date End Date Linda Blancas MD [facility] [address] [place] [address] PCP - General 01/06/11 documented as of this encounter
--- OUTSIDE RECORDS SUMMARY | 2024-03-20 15:04 | XMS_ITS | Encounter Summary ---
Author Organization [facility] Address [address] [place] [address] Care Team Providers Care Rectifying Attendant Name Role Phone Linda Blancas MD Primary Care Provider [phone] Encounter Details Date Type Department Care Team (Late st Contact Info) Description 08/17/2018 Phlebotomy Only [address] [address] [facility] [employer], Outpatient Metastatic breast cancer (HCC-CMS) (Primary Dx) [...] [facility] Inter[facility] Unit [address] [place] [address] [phone] 04/02/2024 15:15 EDT Office Visit [facility] Surgical Oncology - [address] 587201 Adolfo Carreno MD [address] [place] [address] [phone] 04/05/2024 9:30 EDT Telemedicine [facility] Palliative Care Services [address] [place] [address] [phone] Chichi Woods MD [address] [place] [address] [phone] 04/11/2024 15:00 EDT Telemedicine [facility] Hematology & Oncology [address] 786501 Alisson Carreon MD [address] [place] [address] [phone] 04/13/2024 13:30 EDT Appointment [facility] Hematology & Oncology [address] 632241 04/13/2024 14:00 EDT Appointment [facility] Hematology & Oncology [address] 298801 04/16/2024 10:00 EST Telemedicine [facility] Palliative Care Services [address] [place] [address] [phone] Chichi Woods MD [address] [place] [address] [place] [address] [place] [phone] 04/24/2024 9:00 EST Appointment [facility] Radiology CT Outpatient - [address] [id number] 04/24/2024 11:00 EST Appointment [facility] Breast Imaging - [facility] S [place] 1 [place], [place] 293691 04/27/2024 12:00 EST Appointment [facility] Hematology & Oncology - [address] 877121 05/02/2024 15:00 EST Telemedicine [facility] Hematology & Oncology [address] 783351 Alisson Carreon MD [address] [place] [address], Level 2 [place] [phone] 05/04/2024 10:15 EST Ancillary Procedure [facility] Cardiology - [address] [place] [address] 05/04/2024 11:30 EST Appointment [facility] Hematology & Oncology [address] 938011 05/04/2024 12:00 EST Appointment [facility] Hematology & Oncology - [address] 242771 06/12/2024 13:00 EST Appointment [facility] Radiology CT - [address] [phone] documented as of this encounter Procedures Procedure Name Priority Date/Time Associated Diagnosis Comments CA 27.29 Routine 08/17/2018 10:22 EST Metastatic breast cancer (HCC-CMS) documented in this encounter Results * CA 27.29 (08/17/2018 10:22 EST) CA 27.29 23.4 <38 U/mL 08/17/2018 15:14 EST [facility] Comment: Serum CA 27.29 concentration should not be interpreted as absolute evidence for the presence or absence of malignant disease. Assayed utilizing [employer] ([employer]) chemiluminescent technology. ??Values obtained by using different assay methods cannot be used interchangeably. Blood specimen (specimen) BLOOD SPECIMEN / Unknown 08/17/2018 10:22 EST 08/17/2018 10:32 EST Augustina Colin MD PhD CHEMISTRY & BLOOD GA S ORDERABLES [facility] [address] [place] [address] documented in this encounter Visit Diagnoses Diagnosis Metastatic breast cancer- Primary documented in this encounter Care Teams Rectifying Attendant Relationship Specialty Start Date End Date Linda Blancas MD [facility] [address] [place] [address] PCP - General 01/06/11 documented as of this encounter
--- OUTSIDE RECORDS SUMMARY | 2024-03-20 15:04 | XMS_ITS | Encounter Summary ---
Author Organization [facility] Address [address] [place] [address] Care Team Providers Care Technical Operations Specialist Name Role Phone Linda Blancas MD Primary Care Provider [phone] Reason for Visit * Reason Onset Date Comments Labs Only 03/27/2018 Encounter Details Date Type Department Care Team (Late st Contact Info) Description 03/27/2018 Telephone [facility] Hematology & Oncology - [facility] [address] [place] [address] Susana Doherty, RN Labs Only Social History [...] Telephone Encounter - Susana Doherty RN - 03/27/2018 0921 EDT PC to patient to let her know I faxed over lab orders to [facility] to be done this week. Her VM was full and couldn't leave a message so I also sent a message through [employer]. documented in this encounter Plan of Treatment Upcoming Encounters Date Type Department Care Team (Late st Contact Info) Description 04/02/2024 10:30 EDT Appointment [facility] Interventional Radiology Unit [address] [place] [address] [phone] 04/02/2024 15:15 EDT Office Visit [facility] Surgical Oncology - [address] [phone] Adolfo Carreno MD [address] [place] [address] 2 [place] [phone] 04/05/2024 9:30 EDT Telemedicine [facility] Palliative Care Services [address] [place], [place] [phone] Chichi Woods MD [address] [place] [address] [phone] 04/11/2024 15:00 EDT Telemedicine [facility] Hematology & Oncology - [address] [phone] Alisson Carreon MD [address] [place] [address] 2 [place] [phone] 04/13/2024 13:30 EDT Appointment [facility] Hematology & Oncology - [address] [address] 04/13/2024 14:00 EDT Appointment [facility] Hematology & Oncology [address] [phone] 04/16/2024 10:00 EST Telemedicine [facility] - [facility] Palliative Care Services [address] [place] [address] [phone] Chichi Woods MD [address] [place] [address], [address] [phone] 04/24/2024 9:00 EST Appointment [facility] Radiology CT Outpatient - [address] [id number] 04/24/2024 11:00 EST Appointment [facility] Breast Imaging - [facility] S [place] [address] [place], [place] 317801 04/27/2024 12:00 EST Appointment [facility] Hematology & Oncology [address] 040301 05/02/2024 15:00 EST Telemedicine [facility] Hematology & Oncology [address] 234001 Alisson Carreon MD [address] [place] [address], [facility], Level 2 [place] [phone] 05/04/2024 10:15 EST Ancillary Procedure [facility] Cardiology [place] [address] 05/04/2024 11:30 EST Appointment [facility] Hematology & Oncology [address] 738271 05/04/2024 12:00 EST Appointment [facility] Hematology & Oncology - [address] [id number] 06/12/2024 13:00 EST Appointment [facility] Radiology CT - Main [address] [address] documented as of this encounter Visit Diagnoses Not on filedocumented in this encounter Care Teams Technical Operations Specialist Relationship Specialty Start Date End Date Linda Blancas MD [facility] [address] [place] [address] PCP - General 01/06/11 documented as of this encounter
--- OUTSIDE RECORDS SUMMARY | 2024-03-20 15:04 | XMS_ITS | Encounter Summary ---
Author Organization [facility] Address [address] [place] [address] Care Team Providers Care Hard Metals Hand Engraver Name Role Phone Linda Blancas MD Primary Care Provider [phone] Encounter Details Date Type Department Care Team (Late st Contact Info) Description 03/24/2018 Documentation Visit [facility] Hematology & Oncology - [facility] [address], [place] [phone] Quita Calvin MSW Social History Tobacco Use Types Packs/Day Years [...] of this encounter Progress Notes * Quita Calvin MSW - 03/24/2018 1724 EDT SOCIAL WORK ENCOUNTER Presenting Issue: Question re: FMLA for Pt requested to see this underwriter as has a question about taking time off under his FMLA. states that he wants to be able to take time off next year and make a trip out [place] with pt. Explained to him that he could possibly pursue FMLA for MH issue, (i.e. Can't concentrate on work duties due to pt's advanced cancer, etc) They are thinking about taking a trip out [place], but not until next , so not an immediate issue. Plan: Advised pt/ to let this underwriter know when they are actively wishing to pursue the above. Pt is good about letting this underwriter know if questions/concerns come up for her. ABEL Barahona documented in this encounter Plan of Treatment Upcoming Encounters Date Type Department Care Team (Late st Contact Info) Description 04/02/2024 10:30 EDT Appointment [facility] Interventional Radiology Unit [address] [place] [address] [phone] 04/02/2024 15:15 EDT Office Visit [facility] Surgical Oncology - [facility] [address], [place] [phone] Adolfo Carreno MD 111 [facility], Level [address] [place] [phone] 04/05/2024 9:30 EDT Telemedicine [facility] - [facility] Palliative Care Services [address], [place] [phone] Chichi Woods MD 111 [facility], [place] [address] [place] [phone] 04/11/2024 15:00 EDT Telemedicine [facility] Hematology & Oncology - [address] [phone] Alisson Carreon MD [address] [place] [address] 2 [place] [phone] 04/13/2024 13:30 EDT Appointment [facility] Hematology & Oncology - [address] 070731 04/13/2024 14:00 EDT Appointment [facility] Hematology & Oncology - [address] [address] 04/16/2024 10:00 EST Telemedicine [facility] - [facility] Palliative Care Services [address] [place] [address] Chichi Woods MD [address] [place] [phone] 04/24/2024 9:00 EST Appointment [facility] Radiology CT Outpatient - [address] 756211 04/24/2024 11:00 EST Appointment [facility] Breast Imaging - [address] 407501 04/27/2024 12:00 EST Appointment [facility] Hematology & Oncology - [address] 156141 05/02/2024 15:00 EST Telemedicine [facility] Hematology & Oncology - [address] 734381 Alisson Carreon MD [address] [place] [address], [facility] [address] [place] [phone] 05/04/2024 10:15 EST Ancillary Procedure [facility] Cardiology - [address] [place] [address] 05/04/2024 11:30 EST Appointment [facility] Hematology & Oncology [address] 211021 05/04/2024 12:00 EST Appointment [facility] Hematology & Oncology [address] 193281 06/12/2024 13:00 EST Appointment [facility] Radiology CT - [address] [phone] documented as of this encounter Visit Diagnoses Not on filedocumented in this encounter Care Teams Hard Metals Hand Engraver Relationship Specialty Start Date End Date Linda Blancas MD [facility] [address] [place] [address] PCP - General 01/06/11 documented as of this encounter
--- OUTSIDE RECORDS SUMMARY | 2024-03-20 15:04 | XMS_ITS | Encounter Summary ---
Author Organization Health system Address [address] [place] [address] Care Team Providers Care Ski Patroller Name Role Phone Linda Blancas MD Primary Care Provider [phone] Reason for Visit * Reason Onset Date Comments Appointment Related 05/25/2018 Encounter Details Date Type Department Care Team (Late st Contact Info) Description 05/25/2018 Telephone [facility] Plastic, Reconstructive & Cosmetic Surgery - [address], [address] [place], [place] 2[address] Tylor Boss MD [address] [phone] Appointment Related Social History Tobacco [...] * Telephone Encounter - Dasha Lockhart - 05/25/2018 0832 EST Your surgery is scheduled on 05/30/2018 Please check in at the registration department at [address] [place] [address] in [place], [place] at: Check in time: 06:00am Your surgery is scheduled for 07:25am No [...] your surgery * You will need a fork truck driver to transport you home Bus, Taxi, Uber are NOT acceptable transportation documented in this encounter Plan of Treatment Upcoming Encounters Date Type Department Care Team (Late st Contact Info) Description 04/02/2024 10:30 EDT Appointment [facility] Interventional Radiology Unit [address] [place] [address] [phone] 04/02/2024 15:15 EDT Office Visit [facility] Surgical Oncology - [address] [phone] Adolfo Carreno MD [address] [place] [address], Level 2 [place] [phone] 04/05/2024 9:30 EDT Telemedicine [facility] Palliative Care Services [address] [place] [address] 639341 Chichi Woods MD [address] [place] [address], [address] [phone] 04/11/2024 15:00 EDT Telemedicine [facility] Hematology & Oncology - [address] [phone] Alisson Carreon MD [address] [place] [address], [facility] 2 [place] [phone] 04/13/2024 13:30 EDT Appointment [facility] Hematology & Oncology - [address] 082661 04/13/2024 14:00 EDT Appointment [facility] Hematology & Oncology [address] 756511 04/16/2024 10:00 EST Telemedicine [facility] - [facility] Palliative Care Services [address] [place] [address] Chichi Woods MD [address] [place] [address], [address] [phone] 04/24/2024 9:00 EST Appointment [facility] Radiology CT Outpatient - [address] 268371 04/24/2024 11:00 EST Appointment [facility] Breast Imaging - [address] 637161 04/27/2024 12:00 EST Appointment [facility] Hematology & Oncology - [address] 839611 05/02/2024 15:00 EST Telemedicine [facility] Hematology & Oncology - [address] 423981 Alisson Carreon MD [address] [place] [address], [facility] 2 [place] [phone] 05/04/2024 10:15 EST Ancillary Procedure [facility] Cardiology [place] [address] [place] [address] 05/04/2024 11:30 EST Appointment [facility] Hematology & Oncology [address] 468271 05/04/2024 12:00 EST Appointment [facility] Hematology & Oncology [address] 876391 06/12/2024 13:00 EST Appointment [facility] Radiology CT [address] 224741 documented as of this encounter Visit Diagnoses Not on filedocumented in this encounter Care Teams Ski Patroller Relationship Specialty Start Date End Date Linda Blancas MD [facility] [address] [place] [address] PCP - General 01/06/11 documented as of this encounter
--- OUTSIDE RECORDS SUMMARY | 2024-03-20 15:04 | XMS_ITS | Encounter Summary ---
Author Organization [facility] Address [address] [place] [address] Care Team Providers Care Color Maker Formulator Name Role Phone Linda Blancas MD Primary Care Provider [phone] Encounter Details Date Type Department Care Team (Late st Contact Info) Description 07/31/2018 Results Only Imaging [facility] Surgical Oncology - [address] [phone] Adolfo Carreno MD [address] [place] [address], Level 2 [place] [phone] Social History Tobacco Use Types [...] [facility] Interventional Radiology Unit [address] [place] [address] 394331 04/02/2024 15:15 EDT Office Visit [facility] Surgical Oncology [address] 934751 Adolfo Carreno MD [address] [place] [phone] 04/05/2024 9:30 EDT Telemedicine [facility] Palliative Care Services [address] [place] [address] 355621 Chichi Woods MD [address] [place] [phone] 04/11/2024 15:00 EDT Telemedicine [facility] Hematology & Oncology [address] 637021 Alisson Carreon MD [address] [place] [phone] 04/13/2024 13:30 EDT Appointment [facility] Hematology & Oncology [address] 975481 04/13/2024 14:00 EDT Appointment [facility] Hematology & Oncology [address] [phone] 04/16/2024 10:00 EST Telemedicine [facility] Palliative Care Services [address] [place], [place] 395521 Chichi Woods MD 111 [facility], [address] [phone] 04/24/2024 9:00 EST Appointment [facility] Radiology CT Outpatient - [address] 252121 04/24/2024 11:00 EST Appointment [facility] Breast Imaging - [facility] [address] [place] [address] [place], [place] 993581 04/27/2024 12:00 EST Appointment [facility] Hematology & Oncology - [address] 817961 05/02/2024 15:00 EST Telemedicine [facility] Hematology & Oncology - [address] 447131 Alisson Carreon MD 111 [facility], Level 2 [place] [phone] 05/04/2024 10:15 EST Ancillary Procedure [facility] Cardiology - [address] [place] [address] 05/04/2024 11:30 EST Appointment [facility] Hematology & Oncology - [address] 266681 05/04/2024 12:00 EST Appointment [facility] Hematology & Oncology - [address] [phone] 06/12/2024 13:00 EST Appointment [facility] Radiology CT - [address] [phone] documented as of this encounter Procedures Procedure Name Priority Date/Time Associated Diagnosis Comments [facility] BREAST-BREAST CARE CENTER ONLY 07/31/2018 14:02 EST documented in this encounter Results * [facility] BREAST-BREAST CARE CENTER ONLY (07/31/2018 14:02 EST) Anatomical Region Laterality Modality Other 07/31/2018 14:0 2 EST Narrative 07/31/2018 14:02 EST See Notes Tab. Procedure Note DIESEL SERVICE JOURNEYMAN, IMAGING - 07/31/2018 See Notes Tab. Adolfo Carreno MD [facility] ORDERABLES documented in this encounter Visit Diagnoses Not on filedocumented in this encounter Care Teams Color Maker Formulator Relationship Specialty Start Date End Date Linda Blancas MD [facility] [address] [place] [address] PCP - General 01/06/11 documented as of this encounter
--- OUTSIDE RECORDS SUMMARY | 2024-03-20 15:04 | XMS_ITS | Encounter Summary ---
Author Organization [facility] Address [address] [place] [address] Care Team Providers Care Gasoline Catalyst Operator Name Role Phone Linda Blancas MD Primary Care Provider [phone] Reason for Visit * Reason Onset Date Comments Labs Only 03/02/2018 Encounter Details Date Type Department Care Team (Late st Contact Info) Description 03/02/2018 Telephone [facility] Hematology & Oncology - [facility] [address] [place] [address] Susana Doherty, RN Labs Only Social History [...] No 01/19/2018 documented as of this encounter Miscellaneous Notes * Telephone Encounter - Susana Doherty RN - 03/02/2018 0850 EDT Email to patient to let her know to continue the Ibrance with monthly labs. Dr. Colin will discussthe tumor marker results when she comes in for her on appt on 03/24, as that isn't back yet. documented in this encounter Plan of Treatment Upcoming Encounters Date Type Department Care Team (Late st Contact Info) Description 04/02/2024 10:30 EDT Appointment [facility] Interventional Radiology Unit [address] [place] [address] [phone] 04/02/2024 15:15 EDT Office Visit [facility] Surgical Oncology - [address] [phone] Adolfo Carreno MD [address] [place] [address] 2 [place] [phone] 04/05/2024 9:[address] [facility] - [facility] Palliative Care Services [address] [place], [place] [phone] Chichi Woods MD [address] [place] [address] [phone] 04/11/2024 15:00 EDT Telemedicine [facility] Hematology & Oncology - [address] [phone] Alisson Carreon MD [address] [place] [address] 2 [place] [phone] 04/13/2024 13:30 EDT Appointment [facility] Hematology & Oncology - [address] 570201 04/13/2024 14:00 EDT Appointment [facility] Hematology & Oncology [address] [phone] 04/16/2024 10:[address] [facility] - [facility] Palliative Care Services [address] [place] [address] [phone] Chichi Woods MD [address] [place] [address], [address] [phone] 04/24/2024 9:00 EST [facility]ointment [facility] Rad[facility] CT Outpatient - [address] 168661 04/24/2024 11:00 EST Appointment [facility] Breast Imaging - [facility] [address] [place] 1 [place], [place] 750501 04/27/2024 12:00 EST Appointment [facility] Hematology & Oncology - [address] 048641 05/02/2024 15:00 EST Telemedicine [facility] Hematology & Oncology [address] [phone] Alisson Carreon MD [address] [place] [address], [facility], Level 2 [place] [phone] 05/04/2024 10:15 EST Ancillary Procedure [facility] Cardiology [place] [address] 05/04/2024 11:30 EST Appointment [facility] Hematology & Oncology [address] 873711 05/04/2024 12:00 EST Appointment [facility] Hematology & Oncology - [address] 808231 06/12/2024 13:00 EST Appointment [facility] Radiology CT - Main [address] 063611 documented as of this encounter Visit Diagnoses Not on filedocumented in this encounter Care Teams Gasoline Catalyst Operator Relationship Specialty Start Date End Date Linda Blancas MD [facility] [address] [place] [address] PCP - General 01/06/11 documented as of this encounter
--- OUTSIDE RECORDS SUMMARY | 2024-03-20 15:04 | XMS_ITS | Encounter Summary ---
Author Organization [facility] Address [address] [place] [address] Care Team Providers Care Pin Drafting Machine Operator Name Role Phone Linda Blancas MD Primary Care Provider [phone] Reason for Referral * Surgery (Routine) - Closed Specialty Diagnoses / Procedures Referred By Doug hearn Referred To Contact Plastic Surgery Diagnoses Metastatic breast cancer Malignant neoplasm of right female breast, unspecified estrogen receptor status, unspecified site of breast ([facility]) S/P breast reconstruction, right Procedures [place] DELAY BREAST PROS AFTER BREAST SURG [place] ENLARGE BREAST WITH IMPLANT [place] REMOVAL OF BREAST IMPLANT [place] REVISE BREAST RECONSTRUCTION [place] RECMPL WND SCALP,EXTR 2.6-7.5 CM [place] SUSPENSION OF BREAST [place] BREAST RECONSTRUC W TISS EXPANDR Tylor Boss MD [address] [place] [phone] Tylor Boss MD FACS [address] [facility] [address] [place] [phone] Referral ID Status Reason Start Date Expiration Date V isits Requested Visits Authorized [id number] Closed Specialty Services Required 04/02/2018 1 1 Question Answer Reason for Request: Right breast TE to gel, fat injection, left mastopexy with implant exchange and abdominal scar revision Scheduled Surgery Date: 04/02/2018 Laterality: Left, Right Location of Procedure: Main [place] [facility]/ Outpt Anesthesia: General Estimated Length of Procedure: 6 h CPT Code: 36415, 68790, 45131, 12638, 66988 Reason for Visit * Reason Comments Pre-op Exam TE exchange 04/10 Encounter Details Date Type Department Care Team (Late st Contact Info) Description 03/24/2018 13:00 EDT Office Visit [facility] Plastic, Reconstructive & Cosmetic Surgery - [address], [address] [place] [address] Tylor Boss MD [address] [phone] S/P breast reconstruction, right (Primary Dx); Malignant neoplasm of right female breast, unspecified estrogen receptor status, unspecified site of breast (HCC); Metastatic breast cancer (HCC-CMS) Social History Tobacco [...] Progress Notes * Tylor Boss MD - 03/24/2018 1300 EDT Sunshine returns to discuss exchange of her right tissue telephone cleaner to permanent silicone implant, fat injection and left mastopexy. We reviewed the risks and benefits of the surgical procedure. We discussed that implants are mechanical devices and do have a failure rate and therefore likely will require further surgery for replacement. We discussed capsular contracture (all grades), implant palpability/rippling, infection/tissue necrosis/implant exposure (which would likely require implant removal). We discussed the significantly increased risk of complications in telephone cleaner/implant reconstruction patient's who receive postoperative radiation or have received previous radiation therapy for any reason. In discussion with Sunshine regarding harvesting her abdomen for fat injection I examined her belly. She has a midline scar that is quite tethered and is going to make harvesting more difficult in terms of achieving normal contour. I offered Sunshine the option of excising the scar and using that opening as access for the liposuction thereby eliminating the multiple other access points usually used and the scar which would like my job harder. As the scar is also symptomatic she was quite pleased with this plan even though it means delaying her surgery several months to be fit back into my schedule as I do not have time on the currently allotted day to include this. She would like toproceed with this plan and is willing to wait. Signed informed consent was obtained today. I spent 45 minutes with this patient; 40 minutes was spent in counseling and coordination of care as described in the progress note. documented in this encounter Plan of Treatment Upcoming Encounters Date Type Department Care Team (Late st Contact Info) Description 04/02/2024 10:30 EDT Appointment [facility] Interventional Radiology Unit [address] [place] [address] [phone] 04/02/2024 15:15 EDT Office Visit [facility] Surgical Oncology - [facility] [address] [place], [place] 174111 Adolfo Carreno MD 111 [facility], Level [address] [place] [phone] 04/05/2024 9:30 EDT Telemedicine [facility] - [facility] Palliative Care Services [address], [place] [phone] Chichi Woods MD [address] [place] [address] [address] [place] [phone] 04/11/2024 15:00 EDT Telemedicine [facility] Hematology & Oncology - [address] [phone] Alisson Carreon MD [address] [place] [address], Level [address] [place] [phone] 04/13/2024 13:30 EDT Appointment [facility] Hematology & Oncology [address] [phone] 04/13/2024 14:00 EDT Appointment [facility] Hematology & Oncology [address] [address] 04/16/2024 10:00 EST Telemedicine [facility] - [facility] Palliative Care Services [address] [place] [address] Chichi Woods MD [address] [place] [phone] 04/24/2024 9:00 EST Appointment [facility] Radiology CT Outpatient - [address] 650661 04/24/2024 11:00 EST Appointment [facility] Breast Imaging - [address] 637211 04/27/2024 12:00 EST Appointment [facility] Hematology & Oncology - [address] 911631 05/02/2024 15:00 EST Telemedicine [facility] Hematology & Oncology - [address] [phone] Alisson Carreon MD 111 [facility], [facility], Level [address] [place] [phone] 05/04/2024 10:15 EST Ancillary Procedure [facility] Cardiology - [address] [place] [address] 05/04/2024 11:30 EST Appointment [facility] Hematology & Oncology - [address] [phone] 05/04/2024 12:00 EST Appointment [facility] Hematology & Oncology [address] 691221 06/12/2024 13:00 EST Appointment [facility] Radiology CT - [address] 190661 Scheduled Referrals Name Type Priority Associated Diagnoses Orde r Schedule AMB CONS/FOLLOW UP SURGERY SCHED ORD Outpatient Referral Routine Metastatic breast cancer (HCC-CMS) Malignant neoplasm of right female breast, unspecified estrogen receptor status, unspecified site of breast (HCC) S/P breast reconstruction, right Ordered: 04/02/2018 documented as of this encounter Visit Diagnoses Diagnosis S/P breast reconstruction, right- Primary Breast replaced by other means Malignant neoplasm of right female breast, unspecified estrogen receptor status, unspecified site of breast (HCC) Metastatic breast cancer documented in this encounter Care Teams Pin Drafting Machine Operator Relationship Specialty Start Date End Date Linda Blancas MD [facility] [address] [place] [address] PCP - General 01/06/11 documented as of this encounter
--- OUTSIDE RECORDS SUMMARY | 2024-03-20 15:04 | XMS_ITS | Encounter Summary ---
Author Organization [facility] Address [address] [place] [address] Care Team Providers Care Ehs Specialist Name Role Phone Linda Blancas MD Primary Care Provider [phone] Encounter Details Date Type Department Care Team (Latest Contact Info) Description 05/18/2018 9:58 EST - 05/18/2018 23:59 EST Hospital Encounter [facility] [address] [place] [address] Augustina Colin MD PhD Discharge Disposition: Auto [...] by mouth daily. 90 Tab 3 08/16/2012 cephALEXin (KEFLEX) 500 mg capsule Take 1 Cap by mouth every 6 hours for 5 days. 20 Cap 05/30/2018 06/04/2018 DOXYLAMINE SUCCINATE (UNISOM ORAL) Take by mouth as needed. Takes half a tablet 02/02/2011 01/13/2022 gabapentin (NEURONTIN) 100 mg capsule Take 2 Caps by mouth 2 times daily. 360 Cap 3 08/16/2012 12/14/2023 IBRANCE 100 mg capsuleIndications:[place] static breast cancer TAKE 1 CAPSULE DAILY FOR 21 DAYS OF A 28 DAY CYCLE 21 Cap 5 02/07/2018 08/17/2018 ibuprofen (MOTRIN) 200 mg tablet Take 200-400 mg by mouth as needed. 08/30/2018 letrozole (FEMARA) 2.5 mg tabletIndications:Perso nal history of malignant neoplasm of breast,Breast lump TAKE 1 TABLET DAILY 90 Tab 3 01/16/2018 01/14/2019 omeprazole (PRILOSEC) 20 mg capsule Take 1 Capsule by mouth daily. 03/28/2023 oxyCODONE (ROXICODONE) 5 mg immediate release tablet Take 1 Tab by mouth every 4 hours as needed for Pain. Daily Max: 30 mg 10 Tab 05/30/2018 08/09/2018 venlafaxine (EFFEXOR-XR) 150 mg XR capsule Take [facility] [address] [place] [address] [phone] 04/02/2024 15:15 EDT Office Visit [facility] Surgical Oncology - [address] [phone] Adolfo Carreno MD [address] [place] [address] [phone] 04/05/2024 9:30 EDT Telemedicine [facility] Palliative Care Services [address] [place] [address] [phone] Chichi Woods MD [address] [place] [address] [phone] 04/11/2024 15:00 EDT Telemedicine [facility] Hematology & Oncology [address] [phone] Alisson Carreon MD [address] [place] [address] [phone] 04/13/2024 13:30 EDT Appointment [facility] Hematology & Oncology [address] [id number] 04/13/2024 14:00 EDT Appointment [facility] Hematology & Oncology [address] [phone] 04/16/2024 10:00 EST Telemedicine [facility] Palliative Care Services [address] [place] [address] [phone] Chichi Woods MD [address] [place] [address], [address] [place] [phone] 04/24/2024 9:00 EST Appointment [facility] Radiology CT Outpatient - [address] [id number] 04/24/2024 11:00 EST Appointment [facility] Breast Imaging - [facility] [address] [place] [address] [place], [place] [phone] 04/27/2024 12:00 EST Appointment [facility] Hematology & Oncology [address] [id number] 05/02/2024 15:00 EST Telemedicine [facility] Hematology & Oncology [address] [phone] Alisson Carreon MD [address] [place] [address], [facility], Level [address] [place] [phone] 05/04/2024 10:15 EST Ancillary Procedure [facility] Cardiology - [address] [place] [address] 05/04/2024 11:30 EST Appointment [facility] Hematology & Oncology [address] [id number] 05/04/2024 12:00 EST Appointment [facility] Hematology & Oncology [address] [phone] 06/12/2024 13:00 EST Appointment [facility] Radiology CT - [address] [phone] documented as of this encounter Visit Diagnoses Not on filedocumented in this encounter Care Teams Ehs Specialist Relationship Specialty Start Date End Date Linda Blancas MD [facility] [address] [place], [place] [phone] PCP - General 01/06/11 documented as of this encounter
--- OUTSIDE RECORDS SUMMARY | 2024-03-20 15:04 | XMS_ITS | Encounter Summary ---
Author Organization [facility] Address [address] [place] [address] Care Team Providers Care Plating Operator Name Role Phone Linda Blancas MD Primary Care Provider [phone] Adolfo Carreno MD Unavailable [phone] Augustina Colin MD PhD Unavailable Unavailable Reason for Visit * Reason Onset Date Comments Results 03/30/2018 Encounter Details Date Type Department Care Team (Late st Contact Info) Description 03/30/2018 Telephone [facility] Hematology & Oncology - Main [place] [address] [place], [place] 450201 Augustina Colin, PhD Results Social History Tobacco [...] encounter Miscellaneous Notes * Telephone Encounter - Daniela Botello - 03/30/2018 1121 EDT Labs entered from: [facility] Daniela Botello 03/30/2018 11:22 documented in this encounter Plan of Treatment Upcoming Encounters Date Type Department Care Team (Late st Contact Info) Description 04/02/2024 10:30 EDT Appointment [facility] Interventional Radiology Unit [address] [place] [address] [phone] 04/02/2024 15:15 EDT Office Visit [facility] Surgical Oncology - [address] [phone] Adolfo Carreno MD [address] [facility] 2 [place] [phone] 04/05/2024 9:30 EDT Telemedicine [facility] Palliative Care Services [address] [place], [place] [phone] Chichi Woods MD [address] [phone] 04/11/2024 15:00 EDT Telemedicine [facility] Hematology & Oncology [address] [phone] Alisson Carreon MD [address] [place] [address] 2 [place] [phone] 04/13/2024 13:30 EDT Appointment [facility] Hematology & Oncology - [address] [address] 04/13/2024 14:00 EDT Appointment [facility] Hematology & Oncology [address] [phone] 04/16/2024 10:00 EST Telemedicine [facility] Palliative Care Services [address] [place] [address] [phone] Chichi Woods MD [address] [place] [address], [address] [phone] 04/24/2024 9:00 EST Appointment [facility] Radiology CT Outpatient - [address] [phone] 04/24/2024 11:00 EST Appointment [facility] Breast Imaging - [facility] [address] [phone] 04/27/2024 12:00 EST Appointment [facility] Hematology & Oncology - [address] [phone] 05/02/2024 15:00 EST Telemedicine [facility] Hematology & Oncology [address] 153681 Alisson Carreon MD [address] [place] [address], [address] [place] [phone] 05/04/2024 10:15 EST Ancillary Procedure [facility] Cardiology - [place] [address] 05/04/2024 11:30 EST Appointment [facility] Hematology & Oncology [address] [id number] 05/04/2024 12:00 EST Appointment [facility] Hematology & Oncology [address] [phone] 06/12/2024 13:00 [facility] Radiology CT - Main [address] [address] documented as of this encounter Procedures Procedure Name Priority Date/Time Associated Diagnosis Comments COMPLETE BLOOD COUNT AND DIFFERENTIAL Routine 03/28/2018 COMPREHENSIVE METABOLIC PANEL (CMP) Routine 03/28/2018 documented in this encounter Results * COMPREHENSIVE METABOLIC PANEL (CMP) (03/28/2018) GFR, Calculated, External [facility] Glucose, Serum, External 93 [facility] Albumin, External 4.0 [facility] Total Alkaline Phosphatase, External 75 [facility] ALT, External 19 [facility] AST, External 19 [facility] BUN, External 18 [facility] Calculated Calcium, External [facility] Calcium, External 8.3 [facility] Chloride, External 108 [facility] CO2, External 28 [facility] Creatinine, External 0.9 [facility] Fasting?, External [facility] Potassium, External 3.8 [facility] Sodium, External 144 [facility] Total Protein, External 7.4 [facility] Bilirubin, Total, External 0.52 [facility] Blood specimen (specimen) 03/28/2018 Historical Provider CHEMISTRY & BLOOD GAS ORDERABLES [facility] * COMPLETE BLOOD COUNT AND DIFFERENTIAL (03/28/2018) WBC, External 3.5 [facility] RBC, External 3.38 [facility] Hemoglobin, External 12.5 [facility] HCT, External 38.0 [facility] MCV, External 112 [facility] MCH, External 37.0 [facility] MCHC, External 32.9 [facility] PLT, External 209 [facility] RDW-CV, External 12.5 [facility] Neutrophils, External 45 [facility] Lymphocytes, External 29 [facility] Monocytes, External 6 [facility] Eosinophils, External 1 [facility] Basophils, External 3 [facility] ABS Neutrophils, External 1.6 [facility] ABS Lymphs, External 1.6 [facility] ABS Monocytes, External 0.2 [facility] ABS Eosinophils, External 0.0 [facility] ABS Basophils, External 0.1 [facility] Blood specimen (specimen) 03/28/2018 Historical Provider PACKAGES & DNA VA OBE ORDERABLES [facility] documented in this encounter Visit Diagnoses Not on filedocumented in this encounter Additional Health Concerns Infection Onset Date Last Indicated Resolved Time R/O COVID-19 12/12/2023 12/12/2023 12/12/2023 15:3 5 EDT R/O COVID-19 01/08/2024 01/08/2024 01/08/2024 18:2 6 EDT R/O COVID-19 01/16/2024 01/16/2024 01/16/2024 17:5 0 EDT documented as of this encounter Care Teams Plating Operator Relationship Specialty Start Date End Date Linda Blancas MD [facility] [address] [place] [address] PCP - General 01/06/11 Adolfo Carreno MD [address] [place] [phone] General Surgery 04/26/19 Augustina Colin MD PhD [address] [place] [phone] Medical Oncology 04/26/19 documented as of this encounter
--- OUTSIDE RECORDS SUMMARY | 2024-03-20 15:04 | XMS_ITS | Encounter Summary ---
Author Organization [facility] Address [address] [place] [address] Care Team Providers Care Accounting Policy Consultant Name Role Phone Ramses Blancas MD Primary Care Provider [phone] Reason for Referral * (Routine) - Closed Specialty Diagnoses / Procedures Referred By Contac t Referred To Contact Diagnoses Metastatic breast cancer Procedures DXA DUAL XRAY ABSORPTIOMETRY FOR BONE DENSITY Augustina Colin MD PhD Referral ID Status Reason Start Date Expiration Date Visits Re quested Visits Authorized [id number] Closed 01/17/2019 1 1 Reason for Visit * Reason Comments Follow-up Encounter Details Date Type Department Care Team (Late st Contact Info) Description 08/17/2018 11:00 EST Office Visit [facility] Hematology & Oncology - Main [place] [address] [place] [address] Augustina Colin MD PhD Metastatic breast cancer [...] Sign Reading Time Taken Comments Blood Pressure 145/68 08/17/2018 1059 EST Pulse 84 08/17/2018 1059 EST Temperature 36.9 ??C (98.5 ??F) 08/17/2018 1059 EST Respiratory Rate 18 08/17/2018 1059 EST Oxygen Saturation 99% 08/17/2018 1059 EST Inhaled Oxygen Concentration - - Weight 61.9 kg (136 lb 8 oz) 08/17/2018 1059 EST Height - - Body Mass Index 25.37 05/26/2018 1316 EST documented in this encounter Functional Status [...] Notes * Augustina Colin MD, MD - 08/17/2018 1100 EST REASON FOR OFFICE VISIT: Evaluation of side effects while receiving letrozole ?? PROBLEM LIST: 1. 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 a. ??Ultrasound performed in [place]??identifying an irregular heterogeneous soft tissue mass measuring [...] right breast tumor/revision and placement of tissue parts specialist. ??1.9 cm tumor at time of surgery, well differentiated, with LVI present, and negative margins. ?? 2. ??Restaging scans: ??CT scan of the chest completed May 2018; stable 1 to 3 mm nodules within the lungs; no osseous metastasis 3. ??DCIS in 2004 [...] health issues: ??gastroesophageal reflux disease. SUBJECTIVE: Ms Bernstein presents to the clinic to discuss side effects related to letrozole. She is tolerating letrozole. She has some very mild hot flashes that she considers normal. She is notsure whether she is less fatigued after stopping the palbociclib because she has been very busy. Ingeneral she feels well. She has no new joint aches or discomfort. She is disappointed with her plastic surgery results and will be proceeding with additional plastic surgery in 2 weeks. She has had good range of motion and not had problems with lymphedema. ROS: A 10 point review of systems was obtained. Other than described in the subjective she notes fatigue relieved with rest, mild anxiety, itching at the site of surgery, occasional headaches. The remaining review of systems is discussed and is negative Medications [...] 21 DAYS OF A 28 DAY CYCLE (Patient not taking: Reported on 07/31/2018) ??? ibuprofen (MOTRIN) 200 mg tablet Take 200-400 mg by mouth as needed. ??? letrozole (FEMARA) 2.5 mg tablet TAKE 1 TABLET DAILY ??? MULTIVITS W-CA,FE,OTHER MIN (WOMEN'S DAILY FORMULA ORAL) Take by mouth daily. ??? mv-mn/C/glutamin/lysin/ahtx134 (AIR[place]ORNE, ASCORBATE SODIUM, ORAL) Take by mouth. [...] Glasses of wine per week Presents to the clinic alone today. Objective: BP (!) 145/68 Pulse 84 Temp 36.9 ??C (98.5 ??F) (Tympanic) Resp 18 Wt 61.9 kg (136 lb 8 oz) SpO2 99% BMI 25.37 kg/m?? Estimated body mass index is 25.37 kg/m?? as calculated from the following: Height as of 05/26/18: 156.2 cm (61.5). Weight as of this encounter: 61.9 kg (136 lb 8 oz). ECOG Performance Status: 0 General: Comfortable, [...] visit. Latest known visit with results is: Admission on 05/30/2018, Discharged on 05/30/2018 Component Date Value Ref Range Status ??? Pathology Report: 05/30/2018 Final Value:SURGICAL PATHOLOGY REPORT Reports generated via electronic interface contain original data; however they are lacking the format of the original report. Caution should be taken when reading/interpreting unformatted reports. Name: PARDEEP SUBRAMANIAN : 1960 (Age: 57) F Collect Date: 05/30/2018 Location: [facility] Receive Date: 05/31/2018 Provider: FELIPE RODRIGUEZ MD Copy to: RAMSES BLANCAS MD Final Pathologic Diagnosis: A. SKIN OF RIGHT CHEST, EXCISION OF MASTECTOMY SCAR: - Skin and subcutaneous tissue with dermal fibrosis (healed incisional scar). B. BREAST, skin and breast tissue, leftLEFT, EXCISION: - Skin and subcutaneous tissue with no histopathologic features. - Benign breast tissue. C. SKIN OF ABDOMEN, EXCISION OF SCAR: - Skin and subcutaneous tissue wit h dermal and subcutaneous fibrosis (surgical scar). - Benign fibrofatty tissue with dense fibrosis. Document reviewed and electronically signed by: HEMA LAU MD Report Date: 06/02/2018 10:06 By the signature above, the attending physician certifies that he/she has personally conducted a gross and/or microscopic examination of the described specimens and rendered or confirmed the above diagnosis. Specimen(s) Received: A. Mastectomy scar right breast B. Left breast tissue C. Abdominal scar tissue Clinical History: Breast cancer Gross Description: A. Received in normal saline labelled with proper patient identification (initials O, K) and mastectomy scar right breast are multiple unoriented fragments of fibrofatty tissue and skin (0.5 x 3.0 x 4.0 cm). No lesions are identified. Research Instructor sections are submitted in A1 and A2. B. Received in normal saline labelled with proper patient identification (initials L, K) and left breast tissue are multiple unoriented fragments of fibrofatty tissue and skin (7.0 x 7.0 x 2.5 cm). No lesions are identified. Research Instructor sections are submitted in B1 and B2. C. Received in normal saline labelled with proper patient identification (initials O, K) and abdominal scar tissue are multiple unoriented fragments of fibrofatty tissue and skin (1.5 x 4.0 x 10.0 cm). No lesions are identified. Research Instructor sections are submitted in C1 and C2. Dr. Ramirez 05/31/2018 2:24 PM End of Report ASSESSMENT: ??Ms Bernstein is a 58-year-old female with metastatic breast cancer with metastatic disease in the mediastinal lymph node and skin/lateral breast. ??The largest area of disease on the ??lateral aspect of the breast was removed at the time of implant removal. Restaging CT scans donein May indicated 1-3 mm pulmonary nodules that are stable. In the fall 2017 she discontinued the palbociclib for surgery. We did not restart it. Her disease burden is very low when it makes sense to just continue the letrozole at this point. ? PLAN: 1. Continue letrozole 2.5 mg daily. 2. Follow up on CA 27.29 from today ?? 3. Repeat staging chest CT November 2018 ?? 4. Next bone density scan will be due December 2018 5. ??Follow-up return in 3mos ? Patient is encouraged call with any intercurrent concerns or problems. ?? Augustina Colin MD 08/17/2018 11:04 documented in this encounter Plan of Treatment Upcoming Encounters Date Type Department Care Team (Late st Contact Info) Description 04/02/2024 10:30 EDT Appointment [facility] Interventional Radiology Unit [address] [address] [phone] 04/02/2024 15:15 EDT Office Visit [facility] Surgical Oncology - [address] [phone] Adolfo Carreno MD [address] [place] [address] 2 [place] [phone] 04/05/2024 9:30 EDT Telemedicine [facility] Palliative Care Services [address] [place] [address] [phone] Chichi Woods MD [address] [place] [address], [address] [phone] 04/11/2024 15:00 EDT Telemedicine [facility] Hematology & Oncology - [address] [phone] Alisson Carreon MD [address] [place] [address] 2 [place] [phone] 04/13/2024 13:30 EDT Appointment [facility] Hematology & Oncology [address] [phone] 04/13/2024 14:00 EDT Appointment [facility] Hematology & Oncology - [address] [phone] 04/16/2024 10:00 EST Telemedicine [facility] Palliative Care Services [address] [place] [address] Chichi Woods MD 111 [facility], [address] [phone] 04/24/2024 9:[address] [facility] Radiology CT Outpatient - [address] [id number] 04/24/2024 11:00 EST Appointment [facility] Breast Imaging - [facility] [address] [place] 1 [place], [place] 747351 04/27/2024 12:00 EST Appointment [facility] Hematology & Oncology - [address] [phone] 05/02/2024 15:00 EST Telemedicine [facility] Hematology & Oncology - [address] [phone] Alisson Carreon MD [address] [place] [address], [facility], Level 2 [place] [phone] 05/04/2024 10:15 EST Ancillary Procedure [facility] Cardiology - [place] [address] 05/04/2024 11:30 EST Appointment [facility] Hematology & Oncology - [address] [phone] 05/04/2024 12:00 EST Appointment [facility] Hematology & Oncology - [address] [address] 06/12/2024 13:00 EST [facility] Rad[facility] - [address] [phone] documented as of this encounter Procedures Procedure Name Priority Date/Time Associated Diagnosis Comments NM BONE SCAN WHOLE BODY Routine 11/07/2018 14:57 EDT documented in this encounter Results * DXA DUAL XRAY ABSORPTIOMETRY FOR BONE DENSITY (02/08/2019 17:26 EDT) DEXA Bone Density [facility] DEXA Bone Density, External [facility] Anatomical Region Laterality Modality Other 02/08/2019 17:2 6 EDT Augustina Coiln MD PhD IMG DEXA ORDERABLES * NM BONE SCAN WHOLE BODY (11/07/2018 14:57 EDT) Anatomical Region Laterality Modality Other 11/07/2018 14:5 7 EDT 11/07/2018 16:51 EDT Narrative 11/07/2018 16:51 EDT NM BONE SCAN WHOLE BODY ??11/07/2018 2:57 PM Signs and Symptoms/Comments: ?? C50.919-Malignant neoplasm of unspecified site of unspecified female breast (HCC-CMS)-ICD-10; metastatic breast cancer Technique: Vnw-epv-nkn-half hours after the IV injection of 19.49 mCi Tc-99m MDP, standard whole body bone images were obtained. Findings: Increased radiotracer uptake at L1-L2 corresponds to progressive degenerative spondylolisthesis at that level. Additional areas of increased uptake in the great toes, right greater than left, both shoulders, and both ankles is consistent with degenerative arthrosis. There are no concerning foci of radiotracer uptake. IMPRESSION: 1. No evidence of osseous metastatic disease. 2. Increased radiotracer uptake at L1-L2 corresponds to worsening arthrosis. I have personally reviewed the images and the above interpretation and agree with the findings. Procedure Note Sonny Georges MD, - 11/07/2018 NM BONE SCAN WHOLE BODY 11/07/2018 2:57 PM Signs and Symptoms/Comments: C50.919-Malignant neoplasm of unspecified site of unspecified female breast (HCC-CMS)-ICD-10; metastatic breast cancer Technique: Vxl-wbf-ptz-half hours after the IV injection of 19.49 mCi Tc-99m MDP, standard whole body bone images were obtained. Findings: Increased radiotracer uptake at L1-L2 corresponds to progressive degenerative spondylolisthesis at that level. Additional areas of increased uptake in the great toes, right greater than left, both shoulders, and both ankles is consistent with degenerative arthrosis. There are no concerning foci of radiotracer uptake. IMPRESSION: 1. No evidence of osseous metastatic disease. 2. Increased radiotracer uptake at L1-L2 corresponds to worsening arthrosis. I have personally reviewed the images and the above interpretation and agree with the findings. Augustina Colin MD PhD IMG [place] ORDERABLES documented in this encounter Visit Diagnoses Diagnosis Metastatic breast cancer- Primary documented in this encounter Discontinued Medications Medication Sig Discontinue Reason Start Date End Da te IBRANCE 100 mg capsuleIndications:Metas tatic breast cancer TAKE 1 CAPSULE DAILY FOR 21 DAYS OF A 28 DAY CYCLE Therapy completed 02/07/2018 08/17/2018 documented as of this encounter Care Teams Accounting Policy Consultant Relationship Specialty Start Date End Date Ramses Blancas MD [facility] [address] [place] [address] PCP - General 01/06/11 documented as of this encounter
--- OUTSIDE RECORDS SUMMARY | 2024-03-20 15:04 | XMS_ITS | Encounter Summary ---
Author Organization [facility] Address [address] [place] [address] Care Team Providers Care Textile Cutting Machine Operator Name Role Phone Linda Blancas MD Primary Care Provider [phone] Reason for Visit * Reason Comments Pre-op Exam Preop and TE fill Encounter Details Date Type Department Care Team (Late st Contact Info) Description 05/25/2018 11:00 EST Office Visit [facility] Plastic, Reconstructive & Cosmetic Surgery - [address], [address] [place], [place] [id number] Tylor Boss MD [address] [place] [phone] S/P breast reconstruction, right (Primary Dx) [...] Progress Notes * Tylor Boss MD - 05/25/2018 1100 EST Sunshine returns to discuss 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 We reviewed the risks and benefits of the surgical procedure. We discussed that implants are mechanical devices and dohave a failure rate and therefore likely will require further surgery for replacement. We discussedcapsular contracture (all grades), implant palpability/rippling, infection/tissue necrosis/implant exposure (which would likely require implant removal). We discussed the significantly increased riskof complications in farmworker fur/implant reconstruction patient's who receive postoperative radiation or have received previous radiation therapy for any reason. In discussion with Sunshine regarding excising the scar and using that opening as access for the liposuction thereby eliminating the multipleother access. Signed informed consent was obtained today. I spent 30 minutes with this patient; 25 minutes was spent in counseling and coordination of care as described in the progress note. documented in this encounter Plan of Treatment Upcoming Encounters Date Type Department Care Team (Late st Contact Info) Description 04/02/2024 10:30 EDT Appointment [facility] Interventional Radiology Unit [address] [place], [place] [address] 04/02/2024 15:15 EDT Office Visit [facility] Surgical Oncology - [address] [phone] Adolfo Carreno MD 111 [facility], [facility] [address] [place] [phone] 04/05/2024 9:30 EDT Telemedicine [facility] Palliative Care Services [address] [place] [address] [phone] Chichi Woods MD [address] [place] [phone] 04/11/2024 15:00 EDT Telemedicine [facility] Hematology & Oncology - [address] 262021 Alisson Carreon MD [address] [place] [address], Level [address] [place] [phone] 04/13/2024 13:30 EDT Appointment [facility] Hematology & Oncology [address] [phone] 04/13/2024 14:00 EDT Appointment [facility] Hematology & Oncology [address] 389061 04/16/2024 10:00 EST Telemedicine [facility] Palliative Care Services [address] [place] [address] [phone] Chichi Woods MD [address] [place] [address] [phone] 04/24/2024 9:00 EST Appointment [facility] Radiology CT Outpatient - [address] 488871 04/24/2024 11:00 EST Appointment [facility] Breast Imaging - [address] 917291 04/27/2024 12:00 EST Appointment [facility] Hematology & Oncology - [address] 382981 05/02/2024 15:00 EST Telemedicine [facility] Hematology & Oncology - [address] 342471 Alisson Carreon MD [address] [place] [address], Level [address] [place] [phone] 05/04/2024 10:15 EST Ancillary Procedure [facility] Cardiology - [address] [place], [place] [phone] 05/04/2024 11:30 EST Appointment [facility] Hematology & Oncology [address] 129491 05/04/2024 12:00 EST Appointment [facility] Hematology & Oncology [address] 261601 06/12/2024 13:00 EST Appointment [facility] Radiology CT - [address] [phone] documented as of this encounter Visit Diagnoses Diagnosis S/P breast reconstruction, right- Primary Breast replaced by other means documented in this encounter Care Teams Textile Cutting Machine Operator Relationship Specialty Start Date End Date Linda Blancas MD [address] [place] [address] [address] [place] [address] PCP - General 01/06/11 documented as of this encounter
--- OUTSIDE RECORDS SUMMARY | 2024-03-20 15:04 | XMS_ITS | Encounter Summary ---
Author Organization [facility] Address [address] [place] [address] Care Team Providers Care Lease Out Man Name Role Phone Linda Blancas MD Primary Care Provider [phone] Encounter Details Date Type Department Care Team (Latest Contact Info) Description 08/17/2018 10:07 EST - 08/17/2018 23:59 EST Hospital Encounter [facility] [address] [place] [address] Augustina Colin MD PhD Discharge Disposition: Auto [...] Max: 12 mg 15 tablet 08/30/2018 05/07/2019 ibuprofen (MOTRIN) 200 mg tablet Take 200-400 mg by mouth as needed. 08/30/2018 letrozole (FEMARA) 2.5 mg tabletIndications:Person al history of malignant neoplasm of breast,Breast lump TAKE 1 TABLET DAILY 90 Tab 3 01/16/2018 01/14/2019 mv-mn/C/glutamin/lysin/h [id number] (AIRBORNE, ASCORBATE SODIUM, ORAL) Take by mouth as needed. 12/14/2023 omeprazole (PRILOSEC) 20 mg capsule Take 1 Capsule by mouth daily. 03/28/2023 ondansetron (ZOFRAN-ODT) 4 mg disintegrating tablet Take 1 Tab by mouth every 8 hours as needed for Nausea. 15 Tab 06/01/2018 08/22/2018 venlafaxine (EFFEXOR-XR) 150 mg XR capsule Take [...] [facility] Interventional Radiology Unit [address] [place] [address] [phone] 04/02/2024 15:15 EDT Office Visit [facility] Surgical Oncology - [address] [phone] Adolfo Carreno MD [address] [place] [address] 2 [place] [phone] 04/05/2024 9:30 EDT Telemedicine [facility] - [facility] Palliative Care Services [address] [place] [address] [phone] Chichi Woods MD [address] [place] [address] [phone] 04/11/2024 15:00 EDT Telemedicine [email or web address] Hematology & Oncology - [address] 973551 Alisson Carreon MD [address] [place] [address] [phone] 04/13/2024 13:30 EDT Appointment [email or web address] Hematology & Oncology [address] [id number] 04/13/2024 14:00 EDT Appointment [email or web address] Hematology & Oncology - [address] [phone] 04/16/2024 10:00 EST Telemedicine [facility] - [facility] Palliative Care Services [address] [place], [place] [address] Chichi Woods MD 111 [facility], [address] [phone] 04/24/2024 9:00 EST Appointment [facility] Radiology CT Outpatient - [address] [id number] 04/24/2024 11:00 EST Appointment [facility] Breast Imaging - [address] 925391 04/27/2024 12:00 EST Appointment [email or web address] Hematology & Oncology - [address] 100181 05/02/2024 15:00 EST Telemedicine [email or web address] Hematology & Oncology - [address] 548521 Alisson Carreon MD [address] [place] [address], Level [address] [place] [phone] 05/04/2024 10:15 EST Ancillary Procedure [facility] Cardiology - [place] [address] 05/04/2024 11:30 EST Appointment [email or web address] Hematology & Oncology - [address] 081111 05/04/2024 12:00 EST Appointment [email or web address] Hematology & Oncology - [address] [phone] 06/12/2024 13:00 EST Appointment [facility] Radiology CT - [address] [address] documented as of this encounter Visit Diagnoses Not on filedocumented in this encounter Care Teams Lease Out Man Relationship Specialty Start Date End Date Linda Blancas MD [facility] [address] [place] [address] PCP - General 01/06/11 documented as of this encounter
--- OUTSIDE RECORDS SUMMARY | 2024-03-20 15:04 | XMS_ITS | Encounter Summary ---
Author Organization [facility] Address [address] [place] [address] Care Team Providers Care Shell Assembler Name Role Phone Linda Blancas MD Primary Care Provider [phone] Reason for Referral * Surgery (Routine) - Closed Specialty Diagnoses / Procedures Referred By Contac t Referred To Contact Plastic Surgery Diagnoses S/P breast reconstruction, right Procedures CT REMOVAL OF BREAST IMPLANT CT BREAST RECONSTRUC W TISS EXPANDR Tylor Boss MD [address] [place] [phone] Tylor Boss MD [address] [place] [phone] Referral ID Status Reason Start Date Expiration Date V isits Requested Visits Authorized [id number] Closed Specialty Services Required 08/14/2018 1 1 Question Answer Reason for Request: Removal of intact right breast implant and placement of tissue salvage cutter Scheduled Surgery Date: 08/14/2018 Laterality: Right Location of Procedure: Main [place] OR/ Outpt Anesthesia: General Estimated Length of Procedure: 1.5 CPT Code: 91704, 56497 Reason for Visit * Reason Comments Post-OP Follow Up sx-05/30/19 Encounter Details Date Type Department Care Team (Late st Contact Info) Description 08/09/2018 15:15 EST Office Visit [facility] Plastic, Reconstructive & Cosmetic Surgery - [address], [address] [place] [phone] Tylor Boss MD [facility] [address] [facility] [address] [place] [phone] S/P breast reconstruction, right (Primary Dx) [...] Progress Notes * Tylor Boss MD - 08/09/2018 7995 EST Sunshine returns in followup after her 05/30/2018: 1. Exchange of leaking tissue salvage cutter to silicone implant with extensive capsulotomy. 2. Fat grafting of right breast from abdomen. 3. Exchange of left implant with vertical mastopexy for matching procedure. 4. Revision of symptomatic abdominal scar used for access for fat grafting harvest. She reports that she is doing well. She is accompanied by her today. On exam her breasts are well healed but she has a significant size discrepancy between her two breasts. It looks as if very little of the fat injected into the right breast took. The left breast has excellent shape and shelikes the size. She is very happy with her abdominal scar revision but would like her two breasts to match. We discussed options for improving symmetry including reducing the right breast to match the left or enlarging the right breast to match the left. Her preferenceis to match the right breast to the left. We discussed that given the loss of fat with her previous fat injection the only way I think I can reliably do this is to replace the implant with an salvage cutter and re-expand the lower pole.She is accepting of this and desires to proceed. documented in this encounter Plan of Treatment Upcoming Encounters Date Type Department Care Team (Late st Contact Info) Description 04/02/2024 10:30 EDT Appointment [facility] Interventional Radiology Unit [address] [place] [address] [phone] 04/02/2024 15:15 EDT Office Visit [facility] Surgical Oncology - [address] [phone] Adolfo Carreno MD [address] [place] [address] [phone] 04/05/2024 9:30 EDT Telemedicine [facility] - [facility] Palliative Care Services [address] [place] [address] [phone] Chichi Woods MD [address] [place] [address] [phone] 04/11/2024 15:00 EDT Telemedicine [facility] Hematology & Oncology [address] [phone] Alisson Carreon MD [address] [place] [address] [phone] 04/13/2024 13:30 EDT Appointment [facility] Hematology & Oncology - [address] [address] 04/13/2024 14:00 EDT Appointment [facility] Hematology & Oncology [address] 040691 04/16/2024 10:00 EST Telemedicine [facility] - [facility] Palliative Care Services [address] [place] [address] [phone] Chichi Woods MD [address] [place] [address] [phone] 04/24/2024 9:00 EST Appointment [facility] Radiology CT Outpatient - [address] [id number] 04/24/2024 11:00 EST Appointment [facility] Breast Imaging - [facility] [address] 812701 04/27/2024 12:00 EST Appointment [facility] Hematology & Oncology [address] 509231 05/02/2024 15:00 EST Telemedicine [facility] Hematology & Oncology [address] 428201 Alisson Carreon MD [address] [place] [address], [facility], Level 2 [place] [phone] 05/04/2024 10:15 EST Ancillary Procedure [facility] Cardiology [place] [place] [address] 05/04/2024 11:30 EST Appointment [facility] Hematology & Oncology [address] 836941 05/04/2024 12:00 EST Appointment [facility] Hematology & Oncology [address] 593221 06/12/2024 13:00 EST [facility]ment [facility] Rad[facility] - [address] 164321 Scheduled Referrals Name Type Priority Associated Diagnoses Orde r Schedule AMB CONS/FOLLOW UP SURGERY SCHED ORD Outpatient Referral Routine S/P breast reconstruction, right Ordered: 08/14/2018 documented as of this encounter Visit Diagnoses Diagnosis S/P breast reconstruction, right- Primary Breast replaced by other means documented in this encounter Discontinued Medications Medication Sig Discontinue Reason Start Date End Da te oxyCODONE (ROXICODONE) 5 mg immediate release tablet Take 1 Tab by mouth every 4 hours as needed for Pain. Daily Max: 30 mg Therapy completed 05/30/2018 08/09/2018 documented as of this encounter Care Teams Shell Assembler Relationship Specialty Start Date End Date Linda Blancas MD [facility] [address] [place] [address] PCP - General 01/06/11 documented as of this encounter
--- OUTSIDE RECORDS SUMMARY | 2024-03-20 15:04 | XMS_ITS | Encounter Summary ---
Author Organization [facility] Address [address] [place] [address] Care Team Providers Care Gluing Machine Feeder Name Role Phone Linda Blancas MD Primary Care Provider [phone] Reason for Visit * Reason Onset Date Comments CT Scan 03/28/[address] for a reg check-in Encounter Details Date Type Department Care Team (Late st Contact Info) Description 03/28/2018 Telephone [facility] Hematology & Oncology - Main [address] [address] Augustina Colin MD PhD CT Scan (wants to come later for a reg check-in) Social History Tobacco Use Types Packs/Day Years [...] Miscellaneous Notes * Telephone Encounter - Karen Peralta. - 03/28/2018 0958 EDT TC and spoke with Sunshine. Reached out to radiology but unable to move check in times around for the scans scheduled for 04/18. Sunshine agreed to keep all appts as is for the 04/18. Has our number to call back for concerns/questions. * Telephone Encounter - Bryan Arambula - 03/28/2018 0839 EDT Patient is calling stating she comes from [place] and she Is asking for a call back to discuss her testing times on 04/[address] scan. She would like to come in an hour later if possible for check in 9:30 .she has a bone scan as well. Please call to discuss documented in this encounter Plan of Treatment Upcoming Encounters Date Type Department Care Team (Late st Contact Info) Description 04/02/2024 10:30 EDT Appointment [facility] Interventional Radiology Unit [address] [place] [address] [phone] 04/02/2024 15:15 EDT Office Visit [facility] Surgical Oncology - [facility] [address] [place], [place] 438[address] Adolfo Carreno MD 111 [facility], Level [address] [place] [phone] 04/05/2024 9:[address] [facility] - [facility] Palliative Care Services [address] [place] [address] [phone] Chichi Woods MD [address] [address] [place] [phone] 04/11/2024 15:00 EDT Telemedicine [facility] Hematology & Oncology - [address] 077031 Alisson Carreon MD [address] [place] [address] 2 [place] [phone] 04/13/2024 13:30 EDT Appointment [facility] Hematology & Oncology - [address] [phone] 04/13/2024 14:00 EDT Appointment [facility] Hematology & Oncology - [address] 591121 04/16/2024 10:[address] [facility] - [facility] Palliative Care Services [address] [place] [address] [phone] Chichi Woods MD [address] [place] [address] 262 [place] [phone] 04/24/2024 9:00 EST Appointment [facility] Radiology CT Outpatient - [address] [id number] 04/24/2024 11:00 EST Appointment [facility] Breast Imaging - [address] 101331 04/27/2024 12:00 EST Appointment [facility] Hematology & Oncology - [address] [phone] 05/02/2024 15:00 EST Telemedicine [facility] Hematology & Oncology - [address] 409341 Alisson Carreon MD [address] [place] [address], Level [address] [place] [phone] 05/04/2024 10:15 EST Ancillary Procedure [facility] Cardiology - [address] [place] [address] 05/04/2024 11:30 EST Appointment [facility] Hematology & Oncology [address] 264871 05/04/2024 12:00 EST Appointment [facility] Hematology & Oncology [address] 840921 06/12/2024 13:00 EST Appointment [facility] Radiology CT [address] 186551 documented as of this encounter Visit Diagnoses Not on filedocumented in this encounter Care Teams Gluing Machine Feeder Relationship Specialty Start Date End Date Linda Blancas MD [facility] [address] [place] [address] PCP - General 01/06/11 documented as of this encounter
--- OUTSIDE RECORDS SUMMARY | 2024-03-20 15:04 | XMS_ITS | Encounter Summary ---
Author Organization [facility] Address [address] [place] [address] Care Team Providers Care Interior Surface Insulation Worker Name Role Phone Ramses Blancas MD Primary Care Provider [phone] Reason for Referral * (Routine) - Receiving Office to Obtain Authorization Specialty Diagnoses / Procedures Referred By Contac t Referred To Contact Kathrin Pratt MD [address] [place] [phone] Referral ID Status Reason Start Date Expiration Date Visits Requested Visits Authorized [id number] Receiving Office to Obtain Authorization Specialty Services Required 05/30/20 [address] Rodriguez in the office in 7-10 days or as scheduled. Please call [phone] for questions or concerns. * (Routine) - Receiving Office to Obtain Authorization Specialty Diagnoses / Procedures Referred By Contac t Referred To Contact Kathrin Pratt MD [address] [place] [address] [id number] Referral ID Status Reason Start Date Expiration Date Visits Requested Visits Authorized [id number] Receiving Office to Obtain Authorization Specialty Services Required 05/30/20 18 1 1 Comments - Chest pain (angina) [...] or drainage at procedure or wound site * (Routine) - Receiving Office to Obtain Authorization Specialty Diagnoses / Procedures Referred By Contac t Referred To Contact Kathrin Pratt MD [address] [place] [phone] Referral ID Status Reason Start Date Expiration Date Visits Requested Visits Authorized [id number] Receiving Office to Obtain Authorization Specialty Services Required 05/30/20 18 1 1 Comments - A temperature greater [...] [facility] * (Routine) - Receiving Office to Obtain Authorization Specialty Diagnoses / Procedures Referred By Contac t Referred To Contact Kathrin Pratt MD [address] [place] [address] [phone] Referral ID Status Reason Start Date Expiration Date Visits Requested Visits Authorized [id number] Receiving Office to Obtain Authorization Specialty Services Required 05/30/20 18 [address] Rodriguez in 7-10 days or as scheduled. Call [phone] for questions or concerns. Encounter Details Date Type Department Care Team (Latest Contact Info) Description 05/30/2018 5:49 EST - 05/30/2018 16:18 EST Hospital Encounter [facility] Perioperative Services- [facility] [address], [place] [address] Felipe Rodriguez MD [address] [place] [address] Malignant neoplasm of right female breast, unspecified estrogen receptor status, unspecified site of breast ([facility]) (Primary Dx) Discharge Disposition: Home or Self [...] Sign Reading Time Taken Comments Blood Pressure 118/60 05/30/2018 1600 EST Pulse - - Temperature 36.2 ??C (97.2 ??F) 05/30/2018 1600 EST Respiratory Rate 16 05/30/2018 1600 EST Oxygen Saturation 100% 05/30/2018 1600 EST Inhaled Oxygen Concentration - - Weight 61.2 kg (135 lb) 05/26/2018 1316 EST Height 156.2 cm (5' 1.5) 05/26/2018 1316 EST Body Mass Index 25.09 05/26/2018 1316 EST documented in this encounter [...] as of this encounter Discharge Diagnoses Diagnosis C50.511 Malignant neoplasm of lower-outer quadrant of right female breast-C50.511[ICD-10-CM] T85.43XA Leakage of breast prosthesis and implant, initial encounter-T85.43XA[ICD-10-CM] N65.1 Disproportion of reconstructed breast-N65.1[ICD-10-CM] L90.5 Scar conditions and fibrosis of skin-L90.5[ICD-10-CM] E78.00 Pure hypercholesterolemia, unspecified-E78.00[ICD-10-CM] 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 20 Cap 05/30/2018 06/04/2018 documented in this encounter Discharge Disposition Disposition Code Departure Means Destination Home or Self Care documented in this encounter Progress Notes * Donya Chapman RN - 05/30/2018 0749 EST OR nurse to start Clindamycin in OR. DONYA CHAPMAN RN 05/30/2018 7:50 * Xenia Zavala RN - 05/26/2018 1341 EST Sunshine Subramanian has been instructed as follows regarding medication administration for the day of the scheduled procedure. Date of Surgery: Instructions for Taking Medications Day of Surgery Medication Sig Last Dose Hold DOS Take DOS calcium-vitamin D (OS-CHAR D) 500 mg(1,250mg) -200 unit per tablet Take 1 Tab by mouth 2 times dailywith breakfast and dinner. 1 week before DOXYLAMINE SUCCINATE (UNISOM ORAL) Take by mouth as needed. Takes half a tablet Prn night before gabapentin (NEURONTIN) 100 mg capsule Take 2 Caps by mouth 2 times daily. Patient taking differently: Take 600 mg by mouth 2 times daily. Takes 300 mg qam and pm and 600 mg qhs yes IBRANCE 100 mg capsule TAKE 1 CAPSULE DAILY FOR 21 DAYS OF A 28 DAY CYCLE Finished on 05/21/18, is on hold for now ibuprofen (MOTRIN) 200 mg tablet Take 200-400 mg by mouth as needed. Over one week before surgery letrozole (FEMARA) 2.5 mg tablet TAKE 1 TABLET DAILY yes MULTIVITS W-CA,FE,OTHER MIN (WOMEN'S DAILY FORMULA ORAL) Take by mouth daily. One week before surgery omeprazole (PRILOSEC) 20 mg capsule Take 20 mg by mouth daily. yes RED YEAST RICE EXTRACT ORAL Take 1,200 mg by mouth daily. 600mg 2x a day One week before surgery valACYclovir (VALTREX) 500 mg tablet Take 1 Tab by mouth daily. yes venlafaxine (EFFEXOR-XR) 150 mg XR capsule Take 1 Cap by mouth daily. yes zolpidem (AMBIEN) 5 mg tablet Take 5 mg by mouth at bedtime as needed for Sleep. Reported on 11/01/2016 yes documented in this encounter OR Notes * OR Surgeon - Felipe Rodriguez MD - 05/30/2018 0000 EST OPERATIVE REPORT SERVICE DATE: 05/30/2018 PREOPERATIVE DIAGNOSES: 1. Right leaking tissue manager intranet reconstruction following mastectomy with allograft. 2. Left augmented breast for previous breast reconstruction matching. 3. Symptomatic abdominal scar from previous abdominal procedure. POSTOPERATIVE DIAGNOSES: PROCEDURE: 1. Exchange of leaking tissue manager intranet to silicone implant with extensive capsulotomy. 2. Fat grafting of right breast from abdomen. 3. Exchange of left implant with vertical mastopexy for matching procedure. 4. Revision of symptomatic abdominal scar used for access for fat grafting harvest. SURGEON: Felipe Rodriguez MD MEAL MILLER: Deana Shaw PA-C and Kathrin Pratt MD ANESTHESIA: INDICATIONS: Sunshine Hagen is a 57-year-old female well known to the plastic surgery service. She originally had a right breast cancer treated with mastectomy and implant-based breast reconstruction in the mid-1999s and subsequently has had a recurrence that required skin resection and placement of tissue manager intranet. She is now here for exchange of her manager intranet implant. Previously, her left side was balanced with an implant, but now has extended nipple to sternal notch distanceand will need a lift. We are also going to downsize the implant as there is less tissue available on the right. Sunshine recently developed a leak in the manager intranet. We have been refilling it to try tokeep the volume in the expansion as large as possible and have moved up her exchange schedule. She does have a symptomatic abdominal scar from previous paramedian incision. I want to fat graft her right breast to add some quality to the tissue. We discussed options for doing this and given the scaris symptomatic, I suggested that we revise the scar and use that for access instead of putting multiple other liposuction access sites. We discussed risks and benefits of all these procedures at length in the office preoperatively. Please see office note for dictation. We did also discuss that I may find the pocket inadequate for placement of the implant due to the manager intranet leaking and would haveto perform a capsulotomy and replace the implant. Sunshine is accepting of this. She also understands that I think it unlikely. NARRATIVE: The patient was seen preoperatively and marked accordingly. She was then taken to the operative suite and placed supine on the operating room table. After stage I of the WHO checklist was appropriately completed, the patient was prepped with ChloraPrep and draped in standard sterile manner. Stage II of the WHO checklist was appropriately completed. Attention was first turned to the right breast. Here, the previous mastectomy scar was excised and passed off for permanent pathology. Dissection was then carried inferiorly along the muscle mastectomy flap interface to the muscle AlloDerm junction. Once this was identified, it was opened with Bovie electrocautery. The manager intranet was removed intact. This was immediately examined with pressure. A single posterior hole at the superior pole of the manager intranet was noted, which is admittedly an odd place for a leak. Once this was complete, Iexamined the pocket and performed a capsulotomy with the Bovie electrocautery from inferior medial superiorly inferior lateral. I tried a sizer and decided that we would be able to proceed with reconstruction as the tissue did appear adequate. After trying several different sizers, I elected on a 375 cc High Profile smooth, round silicone implant. I then turned my attention to the left breast. Here, based on the preoperative marked mastopexy I made the incisions with a 15 blade. The nipple was set at 38 mm and dissected down to the implant capsule. The tissue between the 2 pillars was excisedand passed off for permanent pathology. I designed this with a superior pedicle. Appropriate back cuts were made to allow the nipple to move up. I elevated the breast tissue off the capsule leaving the capsule intact. I then made a low transverse incision through the capsule of the access the saline implant. This was identified to have methylene blue in it. I then placed a series of moderate PlusProfile silicone implants and temporarily closed the pillars with 3-0 PDS until I was mostly happy with the shape and volume of the 2 breasts. At this point I infused the abdomen with Garcia solution.This was done through the midline scar. Once this was allowed to take effect, I liposuctioned through the midline scar in multiple different directions. This was fairly difficult as the patient had asignificant scar from her previous paramedian incision. Once 200 mL of lipoaspirate was obtained this was lightly centrifuged, , prepared for injection. I then excised the abdominal scar. Here, the scar was seen to go all the way down to the abdominal wall in a solid core of scar. Once this was removed off the abdominal wall I then elevated the soft tissue either side of midline several centimeters along the abdominal wall to allow advancement. This was easy to do after the previous liposuction softened up the tissue. I did resect a strip of Andres's fascia laterally, which allowed me to close Andres's in a different vertical plane than the skin closure in an effort to prevent the same type of previous tethering the center post layer of unoperated on fat directly below the skin incision. Andres's was closed with buried interrupted 2-0 PDS. The skin was closed with buried 3-0 Mon ocryl and running 4-0 Monocryl. The right breast was injected with fat. This significantly improvedthe contour of the breast. A total of 90 mL of fat was injected. The right breast was then opened, pocket washed out, meticulous hemostasis was assured with Bovie electrocautery and multiple rounds of triple antibiotic irrigation. A 375 cc Smooth Round High Profile silicone implant was placed. The AlloDerm pectoralis junction was closed with interrupted 3-0 Monocryl. The skin was then closed withburied interrupted 3-0 PDS. The skin was then closed with buried interrupted 3-0 Monocryl and running 4-0 Monocryl. Attention was turned to the left side. Here, the breast was reopened, the temporaryclosure of the pillars were after marking them and the capsule was opened, I removed the sizer. In order to obtain more natural movement of the implant, I did perform a superior capsulotomywith Bovie electrocautery. This was then thoroughly irrigated with triple antibiotic solution and in addition of Bovie electrocautery meticulous hemostasis assured. A 225 cc smooth, round Moderate Plus Profile implant was placed. The capsule was then closed with buried interrupted 3-0 PDS. Great attention was paid to protect the implant during this closure and it was done under direct vision. The pillars were then closed with buried interrupted 3-0 Monocryl. I shortened the pillars to 7 cm and liposuctioned the inferior dog ear after infusion of Garcia solution. The skin was temporarily stapled together. The patient placed in a seated position to confirm that I liked the closure of the pillars, which I did. Leslie were then removed and replaced with buried interrupted 3-0 Monocryl and running 4-0 Monocryl. The nipple was inset at 38 mm with buried interrupted 4-0 Monocryl. I then again placed the patient in a seated position and felt that the nipple-areolar complex was slightly low onthe left by a 0.5 cm. I enlarged the opening, epithelialized the superior pedicle further and reclosed the breast. This gave us the identical sternal notch to nipple distance with the patient was placed in a seated position. I was quite pleased with this. At this point, final closing sutures were placed and the patient's incisions were cleaned with peroxide, dressed with benzoin and 1-inch sterile paper tape, ABD pads, postoperative bra and a postoperative binder. She was awakened, extubated and transferred to the recovery room in stable condition having tolerated the procedure well. At the end of the case, all needle, instrument and sponge counts were correct. Postop debrief noted no deficiencies. Third stage of the WHO checklist was appropriately completed. Unless otherwise noted, there were no complications, no blood loss, no cultures obtained, no specimens removed, and no drains retained. Felipe Rodriguez MD 12 10 PM / Felipe Rodriguez MD kn Confirmation: [id number] Dictation ID: [id number] documented in this encounter Miscellaneous Notes * Brief Op Note - Kathrin Pratt MD - 05/30/2018 1343 EST BRIEF OP NOTE Surgeon: Alejandrina Rodriguez MD Glass Processing Worker: TANK Chu; Desmond Pratt MD PGY3 PreOpDx: Right breast cancer PostOpDx: Same Procedure: Removal of right tissue manager intranet, placement of right gel breast implant, fat grafting toright breast, removal of left breast implant, placement of left gel breast implant, revision of abdominal scar, abdominal liposuction Anesth: GETA Findings: Right breast tissue manager intranet with pinhole leak, new gel implant placed, removal of left breast saline implant, placement of new gel implant EBL: 50mL IVF: 2200mL UOP: 150mL Specimen: Right breast tissue, left breast tissue, abdominal scar Cultures: none Foreign Material Retained: none Complications: none Dispo: Extubated to PACU in good condition CPT Code: 32960, 29780, 16507, 54614, 70131, 48887, 52452 Kathrin Pratt MD, PGY3 05/30/18 13:43 [id number] documented in this encounter Plan of Treatment Upcoming Encounters Date Type Department Care Team (Late st Contact Info) Description 04/02/2024 10:30 EDT Appointment [facility] Interventional Radiology Unit [address] [place] [phone] 04/02/2024 15:15 EDT Office Visit [facility] Surgical Oncology - [facility] [address], [place] [phone] Adolfo Carreno MD 111 [facility], [address] [place] [address] 04/05/2024 9:30 EDT Telemedicine [facility] - [facility] Palliative Care Services [address], [place] [phone] Chichi Woods MD 111 [facility], [address] [phone] 04/11/2024 15:00 EDT Telemedicine [facility] Hematology & Oncology - [address] [id number] Alisson Carreon MD [address] [place] [address], [facility] 2 [place] [phone] 04/13/2024 13:30 EDT Appointment [facility] Hematology & Oncology - [address] [id number] 04/13/2024 14:00 EDT Appointment [facility] Hematology & Oncology [address] [id number] 04/16/2024 10:00 EST Telemedicine [facility] - [facility] Palliative Care Services [address] [place] [phone] Chichi Wodos MD [address] [place] [phone] 04/24/2024 9:00 EST Appointment [facility] Radiology CT Outpatient - [address] [id number] 04/24/2024 11:00 EST Appointment [facility] Breast Imaging - [address] [id number] 04/27/2024 12:00 EST Appointment [facility] Hematology & Oncology - [address] [id number] 05/02/2024 15:00 EST Telemedicine [facility] Hematology & Oncology [address] [phone] Alisson Carreon MD [address] [place] [address], [facility] 2 [place] [phone] 05/04/2024 10:15 EST Ancillary Procedure [facility] Cardiology - [address] [place] [address] 05/04/2024 11:30 EST Appointment [facility] Hematology & Oncology [address] [id number] 05/04/2024 12:00 EST Appointment [facility] Hematology & Oncology [address] [phone] 06/12/2024 13:00 EST Appointment [facility] Radiology CT [address] [id number] Scheduled Referrals Name Type Priority Associated Diagnoses Order Schedule PROVIDER FOLLOW-UP INSTRUCTIONS Outpatient Referral Routine Ordered: 05/30/2018 PROVIDER FOLLOW-UP INSTRUCTIONS Outpatient Referral Routine Ordered: 05/30/2018 PROVIDER FOLLOW-UP INSTRUCTIONS Outpatient Referral Routine Ordered: 05/30/2018 PROVIDER FOLLOW-UP INSTRUCTIONS Outpatient Referral Routine Ordered: 05/30/2018 documented as of this encounter Procedures Procedure Name Priority Date/Time Associated Diagnosis Comments IMPLANT RECORD - SCANNED 07/11/2018 11:31 EST IMPLANT RECORD - SCANNED 06/22/2018 20:02 EST IMPLANT RECORD - SCANNED 06/01/2018 10:10 EST ECG REPORT - SCANNED 06/01/2018 10:10 EST SURGICAL PATHOLOGY Routine 05/30/2018 9:24 EST ECG REPORT - SCANNED 05/25/2018 16:07 EST documented in this encounter Results * IMPLANT RECORD - SCANNED (07/11/2018 11:31 EST) 07/11/2018 11:3 1 EST Scan 2 [employer] Instructor PROCEDURE/MINOR AJ GICAL ORDERABLES * IMPLANT RECORD - SCANNED (06/22/2018 20:02 EST) 06/22/2018 20:0 2 EST Scan 2 [employer] Instructor PROCEDURE/MINOR AJ GICAL ORDERABLES * IMPLANT RECORD - SCANNED (06/01/2018 10:10 EST) 06/01/2018 10:1 0 EST Scan 2 [employer] Instructor PROCEDURE/MINOR AJ GICAL ORDERABLES * ECG REPORT - SCANNED (06/01/2018 10:10 EST) 06/01/2018 10:1 0 EST Scan 2 [employer] Instructor PROCEDURE/MINOR AJ GICAL ORDERABLES * SURGICAL PATHOLOGY (05/30/2018 9:24 EST) Pathology Report: SURGICAL PATHOLOGY REPORT Reports generated via electronic interface contain original data; however they are lacking the format of the original report. Caution should be taken when reading/interpreti ng unformatted reports. Name: ? SUNSHINE SUBRAMANIAN ? Accession #: ? [id number] ? : ? 1960 (Age: 57) ??F ? Collect Date: ? 05/30/2018 ? Location: ? [facility] ? Receive Date: ? 05/31/2018 ? Provider: FELIPE RODRIGUEZ MD Copy to: RAMSES BLANCAS MD ? Final Pathologic Diagnosis: A. SKIN OF RIGHT CHEST, EXCISION OF MASTECTOMY SCAR: - ??Skin and subcutaneous tissue with dermal fibrosis (healed incisional scar). B. BREAST, ??skin and breast tissue, leftLEFT, EXCISION: - ??Skin and subcutaneous tissue with no histopathologic features. - ??Benign breast tissue. C. SKIN OF ABDOMEN, EXCISION OF SCAR: - ??Skin and subcutaneous tissue with dermal and subcutaneous fibrosis (surgical scar). - ??Benign fibrofatty tissue with dense fibrosis. Document reviewed and electronically signed by: HEMA LAU MD Report ??Date: 06/02/2018 10:06 By the signature above, the attending physician certifies that he/she has personally conducted a gross and/or microscopic examination of the described specimens and rendered or confirmed the above diagnosis. Specimen(s) Received: A. ??Mastectomy scar right breast B. ??Left breast tissue C. ??Abdominal scar tissue Clinical History: Breast cancer Gross Description: A. ?Received in normal saline labelled with proper patient identification (initials O, K) and mastectomy scar right breast are multiple unoriented fragments of fibrofatty tissue and skin (0.5 x 3.0 x 4.0 cm). No lesions are identified. Substance Abuse Technician sections are submitted in A1 and A2. B. ?Received in normal saline labelled with proper patient identification (initials L, K) and left breast tissue are multiple unoriented fragments of fibrofatty tissue and skin (7.0 x 7.0 x 2.5 cm). No lesions are identified. Substance Abuse Technician sections are submitted in B1 and B2. C. ?Received in normal saline labelled with proper patient identification (initials O, K) and abdominal scar tissue are multiple unoriented fragments of fibrofatty tissue and skin (1.5 x 4.0 x 10.0 cm). No lesions are identified. Substance Abuse Technician sections are submitted in C1 and C2. Dr. Ramirez 05/31/2018 2:24 PM End of Report [facility] 05/30/2018 9:24 EST 05/31/2018 9:24 EST Felipe Rodriguez MD FACS PATHOLOGY OR DERABLES [facility] [address] [place] [address] * ECG REPORT - SCANNED (05/25/2018 16:07 EST) 05/25/2018 16:0 7 EST Scan 2 [employer] Instructor PROCEDURE/MINOR AJ GICAL ORDERABLES documented in this encounter Visit Diagnoses Diagnosis Malignant neoplasm of right female breast, unspecified estrogen receptor status, unspecified site of breast ([facility])- Primary documented in this encounter Administered Medications Inactive Administered Medications - up to 3 most recent administrations Medication Order MAR Action Action Date Dose Rate Site acetaminophen (TYLENOL) tablet 1,000 mg 1,000 mg, oral, PRN, 1 dose, Starting on Tue05/30/18 at 1353, Until Tue05/30/18 at 1446, Fever, Routine, Recovery (only) Given 05/30/2018 14:46 EST 1,000 mg atropine 0.1 mg/mL syringe 0.5 mg 0.5 mg, intravenous, PRN, Starting on Tue05/30/18 at 1353, Until Tue05/30/18 at 1832, Symptomatic HR < 50, Routine, Recovery (only) clindamycin (CLEOCIN) IVPB 900 mg 900 mg, intravenous, Administer over 30 Minutes, PRE-OP ONCE, 1 dose, On Tue05/30/18 at 0745, Routine Given by Other 05/30/2018 8:00 EST 900 mg diphenhydrAMINE (BENADRYL) injection 12.5 mg 12.5 mg, intravenous, PRN, 1 dose, Starting on Tue05/30/18 at 1353, Until Tue05/30/18 at 1832, nausea, Routine, Recovery (only) fentaNYL citrate (PF) injection 25-50 mcg 25-50 mcg, intravenous, EVERY 5 MIN PRN, Starting on Tue05/30/18 at 1353, Until Tue05/30/18 at 1832, Pain, Routine, Recovery (only) HYDROmorphone (DILAUDID) tablet 2-4 mg 2-4 mg, oral, EVERY 30 MINUTES PRN, 2 doses, Starting on Tue05/30/18 at 1353, Until Tue05/30/18 at 1832, Pain, Routine, Recovery (only) Given 05/30/2018 14:47 EST 2 mg lactated ringers (LR) infusion at 25 mL/hr, intravenous, CONTINUOUS, Starting on Tue05/30/18 at 0645, Until Tue05/30/18 at 1832, Routine, Pre Op Day of Surgery New Bag 05/30/2018 6:54 EST 25 mL/hr lactated ringers (LR) infusion at 75 mL/hr, intravenous, CONTINUOUS, Starting on Tue05/30/18 at 1415, Until Tue05/30/18 at 1832, Routine, Recovery (only) Rate Documented 05/30/2018 14:20 EST 75 mL/hr naloxone (NARCAN) injection 0.2 mg 0.2 mg, intravenous, PRN, Starting on Tue05/30/18 at 1353, Until Tue05/30/18 at 1832, Opioid Reversal, Routine, Recovery (only) ondansetron (PF) (ZOFRAN) injection 4 mg 4 mg, intravenous, PRN, 1 dose, Starting on Tue05/30/18 at 1353, Until Tue05/30/18 at 1832, Nausea, Vomiting, Routine, Recovery (only) documented in this encounter Active and Recently Administered Medications Times are shown in EST. Scheduled Medication Order 05/28/2018 05/29/2018 05/30/2018 clindamycin (CLEOCIN) IVPB 900 mg (COMPLETED) 900 mg, intravenous, Administer over 30 Minutes, PRE-OP ONCE, 1 dose, On Tue05/30/18 at 0745, Routine 0745 (Due)0800 (Give n by Other - Provider: Hina Turcios RN - Comment: 900mg of clindamycin given preop by anesthesia staff) Continuous Medication Order 05/28/2018 05/29/2018 05/30/2018 lactated ringers (LR) infusion at 25 mL/hr, intravenous, CONTINUOUS, Starting on Tue05/30/18 at 0645, Until Tue05/30/18 at 1832, Routine, Pre Op Day of Surgery 0654 (New Bag - Prov ider: Donya Chapman RN)1414 (Completed - Provider: Anusha Steele, SHELLEY) lactated ringers (LR) infusion at 75 mL/hr, intravenous, CONTINUOUS, Starting on Tue05/30/18 at 1415, Until Tue05/30/18 at 1832, Routine, Recovery (only) 1414 (Continued Infu addie - Provider: Anusha Steele, SHELLEY)1420 (Rate Documented - Provider: Anusha Steele, SHELLEY) PRN Medication Order 05/28/2018 05/29/201805/3005/30/2018 acetaminophen (TYLENOL) tablet 1,000 mg (COMPLETED)(Linked Group 1) 1,000 mg, oral, PRN, 1 dose, Starting on Tue05/30/18 at 1353, Until Tue05/30/18 at 1446, Fever, Routine, Recovery (only) 1446 (Given - Provid er: Anusha Steele RN) atropine 0.1 mg/mL syringe 0.5 mg 0.5 mg, intravenous, PRN, Starting on Tue05/30/18 at 1353, Until Tue05/30/18 at 1832, Symptomatic HR < 50, Routine, Recovery (only) diphenhydrAMINE (BENADRYL) injection 12.5 mg 12.5 mg, intravenous, PRN, 1 dose, Starting on Tue05/30/18 at 1353, Until Tue05/30/18 at 1832, nausea, Routine, Recovery (only) fentaNYL citrate (PF) injection 25-50 mcg 25-50 mcg, intravenous, EVERY 5 MIN PRN, Starting on Tue05/30/18 at 1353, Until Tue05/30/18 at 1832, Pain, Routine, Recovery (only) HYDROmorphone (DILAUDID) tablet 2-4 mg 2-4 mg, oral, EVERY 30 MINUTES PRN, 2 doses, Starting on Tue05/30/18 at 1353, Until Tue05/30/18 at 1832, Pain, Routine, Recovery (only) 1447 (Given - Provid er: Anusha Steele RN) naloxone (NARCAN) injection 0.2 mg 0.2 mg, intravenous, PRN, Starting on Tue05/30/18 at 1353, Until Tue05/30/18 at 1832, Opioid Reversal, Routine, Recovery (only) ondansetron (PF) (ZOFRAN) injection 4 mg 4 mg, intravenous, PRN, 1 dose, Starting on Tue05/30/18 at 1353, Until Tue05/30/18 at 1832, Nausea, Vomiting, Routine, Recovery (only) Linked Groups Order Group 1: acetaminophen (TYLENOL) solution unit dose cup 995 mg (COMPLETED) 995 mg (rounded from 1,000 mg), oral, PRN, 1 dose, Starting on Tue05/30/18 at 1353, Until Tue05/30/18 at 1446, Fever, Routine, Recovery (only) Or acetaminophen (TYLENOL) tablet 1,000 mg (COMPLETED)Jump to med 1,000 mg, oral, PRN, 1 dose, Starting on Tue05/30/18 at 1353, Until Tue05/30/18 at 1446, Fever, Routine, Recovery (only) documented in this encounter Orders Medications Ordered That Vj ht Not Have Been Administered Count Last Ordered Date First Ordered Date acetaminophen (TYLENOL) solu tion unit dose cup 995 mg 1 05/30/2018 atropine 0.1 mg/mL syringe 0.5 mg 1 018 diphenhydrAMINE (BENADRYL) i njection 12.5 mg 1 05/30/2018 fentaNYL citrate (PF) injection 25-50 mcg 1 05/30/2018 naloxone (NARCAN) injection 0.2 mg 1 2017 ondansetron (PF) (ZOFRAN) injection 4 mg 1 05/30/2018 Diet Count Last Ordered Date First Orde red Date DISCHARGE DIET 2 05/30/2018 Nursing Count Last Ordered Date First Orde red Date ACTIVITY INSTRUCTIONS 2 05/30/2018 WOUND CARE INSTRUCTIONS 2 05/30/2018 Transfer Count Last Ordered Date First Orde red Date NOTIFY PPS PACU PATIENT DISCHARGE 1 018 NOTIFY PPS PATIENT ARRIVAL IN PACU 1 2017 Discharge Count Last Ordered Date First Orde red Date DISCHARGE PATIENT 1 05/30/2018 Legal Count Last Ordered Date First Orde red Date MISCELLANEOUS DISCHARGE INSTRUCTIONS 1 05/13 documented in this encounter Care Teams Interior Surface Insulation Worker Relationship Specialty Start Date End Date Ramses Blancas MD [facility] [address] [place] [address] PCP - General 01/06/11 documented as of this encounter
--- OUTSIDE RECORDS SUMMARY | 2024-03-20 15:04 | XMS_ITS | Encounter Summary ---
Author Organization [facility] Address [address] [place] [address] Care Team Providers Care Cabin Cleaner Name Role Phone Linda Blancas MD Primary Care Provider [phone] Reason for Visit * Reason Comments Follow-up Encounter Details Date Type Department Care Team (Late st Contact Info) Description 03/24/2018 11:00 EDT Office Visit [facility] Cancer Center Hematology & Oncology - [facility] [address] [place] [address] Augustina Colin MD PhD Metastatic breast cancer [...] Sign Reading Time Taken Comments Blood Pressure 117/75 03/24/2018 1103 EDT Pulse 93 03/24/2018 1103 EDT Temperature 36.5 ??C (97.7 ??F) 03/24/2018 1103 EDT Respiratory Rate 12 03/24/2018 1103 EDT Oxygen Saturation 99% 03/24/2018 1103 EDT Inhaled Oxygen Concentration - - Weight 63.3 kg (139 lb 8 oz) 03/24/2018 1103 EDT Height - - Body Mass Index 26 03/09/2018 1410 EDT documented in this encounter [...] this encounter Patient Instructions * Patient Instructions* Karen Peralta. - 03/24/2018 11:00 EDT Bone scan scheduled for April. Please check in at 8:30AM with registration, 9AM for injection, 10AM for CT chest, 12pm for bone scan. documented in this encounter Progress Notes * Augustina Colin MD - 03/24/2018 1100 EDT REASON FOR OFFICE VISIT: Evaluation of side effects while receiving palbociclib and letrozole PROBLEM LIST: 1. 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 a. ??[place]trasound performed in [place]??identifying an irregular heterogeneous soft tissue mass measuring 1.2 x 1.2 x 1.5 cm. ?? 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 ??HER-2 1+ by IHC. ??ANNE [...] right breast tumor/revision and placement of tissue cleaner touch up worker. ??1.9 cm tumor at time of [...] health issues: ??gastroesophageal reflux disease. SUBJECTIVE: Ms Pleitez presents clinic today to discuss side effects related to palbociclib andletrozole. She feels that she is tolerating the slightly lower dose of palbociclib. She has had no mouth sores. She has some mild hot flashes but they do not interfere with her function. She has not had problems with vaginal dryness nor joint aches and discomfort. Overall she has some lower back pain which has worsened over the last several months. She will be having her breast implants placed inthe next couple of weeks. She will be done with her most recent cycle of palbociclib in 2 days. Overall she feels quite well. She has been trying to lose weight in preparation for her upcoming plastic surgery. ROS: A 10 point review of systems was obtained. Other than described in the subjective she notes headaches which occasionally are present when she wakes in the morning. The intensity in nature has not changed over the last couple of years. She also notes fatigue relieved with rest, decreased appetite. The remaining review of systems is discussed and is negative. Medications Prior to Today's Visit Medication Sig [...] facility-administered medications prior to visit. Social History Substance Use Topics ??? Smoking status: Never Smoker ??? Smokeless tobacco: Never Used ??? Alcohol use 0.6 - 1.8 oz/week 1 - 3 Glasses of wine per week Presents to clinic with her today. Objective: BP 117/75 Pulse 93 Temp 36.5 ??C (97.7 ??F) (Tympanic) Resp 12 Wt 63.3 kg (139 lb 8 oz) SpO2 99% BMI 26 kg/m2 Estimated body mass index is 26 kg/(m^2) as calculated from the following: Height as of 03/09/18: 156 cm (61.42). Weight as of this encounter: 63.3 kg (139 lb 8 oz). ECOG Performance Status: 0 [...] known visit with results is: Telephone on 02/01/2018 Component Date Value Ref Range Status ? ? GFR, Calculated, External 01/30/2018 >60 Final ??? Glucose, Serum, External 01/30/2018 90 74 - 106 Final ??? Albumin, External 01/30/2018 3.7 3.4 - 5.0 Final ??? Total Alkaline Phosphatase, Concrete Inspector* 01/30/2018 80 48 - 129 Final ??? ALT, External 01/30/2018 22 13 - 61 Final ??? AST, External 01/30/2018 23 15 - 37 Final ??? BUN, External 01/30/2018 19* 7 - 18 Final ??? Calcium, External 01/30/2018 9.1 8.5 - 10.1 Final ??? Chloride, External 01/30/2018 110* 98 - 107 Final ??? CO2, External 01/30/2018 29 21 - 32 Final ??? Creatinine, External 01/30/2018 0.9 0.6 - 1.3 Final ??? Potassium, External 01/30/2018 4.1 3.5 - 5.1 Final ??? Sodium, External 01/30/2018 144 136 - 145 Final ??? Total Protein, External 01/30/2018 7.2 6.4 - 8.2 Final ??? Bilirubin, Total, External 01/30/2018 0.50 0.20 - 1.00 Final ??? WBC, External 01/30/2018 3.3* 4.5 - 11.0 Final ??? RBC, External 01/30/2018 3.23* 4.00 - 5.20 Final ??? Hemoglobin, External 01/30/2018 12.3 12.0 - 15.0 Final ??? HCT, External 01/30/2018 34.9* 36.0 - 46.0 Final ??? MCV, External 01/30/2018 108* 80 - 100 Final ??? MCH, External 01/30/2018 38.1* 26.0 - 34.0 Final ??? MCHC, External 01/30/2018 35.2 31.0 - 37.0 Final ??? PLT, External 01/30/2018 197 150 - 350 Final ??? RDW-CV, External 01/30/2018 12.2 11.5 - 14.5 Final ??? Neutrophils, External 01/30/2018 35.0 31.0 - 76.0 Final ??? Lymphocytes, External 01/30/2018 53.2* 24.0 - 44.0 Final ??? Monocytes, External 01/30/2018 9.4 2.0 - 11.0 Final ??? Eosinophils, External 01/30/2018 0.9* 1.0 - 4.0 Final ??? Basophils, External 01/30/2018 1.5 0.0 - 2.0 Final ??? ABS Neutrophils, External 01/30/2018 1.16* 1.50 - 7.80 Final ??? ABS Lymphs, External 01/30/2018 1.76 1.10 - 4.80 Final ??? ABS Monocytes, External 01/30/2018 0.31 Final ??? ABS Eosinophils, External 01/30/2018 0.03 Final ??? ABS Basophils, External 01/30/2018 0.05 Final ASSESSMENT: ??Ms Bernstein is a 57-year-old female with metastatic breast cancer with metastatic disease in the mediastinal lymph node and skin/lateral breast. The largest area of disease on the lateral aspect of the breast was removed at the time of implant removal and the mediastinal lymphadenopathy resolved with treatment. She is due for restaging scans in a couple of weeks. She continues to have scattered pulmonary nodules which have been stable. We will check CA-27-29 to see if we can use that as a marker of progression. She has been tolerating letrozole and palbociclib well. ??She currently receives palbociclib??100 mg daily for 3 weeks out of 4. Given the small amount of disease we could consider holding the palbciclib and continuing with letrozole. We will hold the palbociclibaround the time of surgery and base her decision regarding continuing on the next restaging scans. ? PLAN: 1. Continue letrozole 2.5 mg daily. Hold palbociclib 100mg starting week of Mar 27. ?? 2. Check CBC and CA 27.29 next week ?? 3. Nuclear bone scan next available. Repeat staging CT scans in Apr 18 when she is here for a postoperative visit 4. Next bone density scan will be due December 2018 5. ??Follow-up return in two??months ? Patient is encouraged call with any intercurrent concerns or problems. ?? Augustina Colin MD 03/24/2018 11:19 documented in this encounter Plan of Treatment Upcoming Encounters Date Type Department Care Team (Late st Contact Info) Description 04/02/2024 10:30 EDT Appointment [facility] Interventional Radiology Unit [address] [place], [place] [phone] 04/02/2024 15:15 EDT Office Visit [facility] Surgical Oncology - [address] [phone] Adolfo Carreno MD [address] [facility], [address] [place] [phone] 04/05/2024 9:30 EDT Telemedicine [facility] Palliative Care Services [address] [place] [address] [id number] Chichi Woods MD [address] [place] [address] [phone] 04/11/2024 15:00 EDT Telemedicine [facility] Hematology & Oncology - [address] [phone] Alisson Carreon MD [address] [place] [address], [address] [place] [phone] 04/13/2024 13:30 EDT Appointment [facility] Hematology & Oncology [address] [phone] 04/13/2024 14:00 EDT Appointment [facility] Hematology & Oncology [address] [id number] 04/16/2024 10:00 EST Telemedicine [facility] Palliative Care Services [address] [place] [address] [phone] Chichi Woods MD [address] [place] [address] [phone] 04/24/2024 9:00 EST Appointment [facility] Radiology CT Outpatient - [address] [address] 04/24/2024 11:00 EST Appointment [facility] Breast Imaging - [address] [phone] 04/27/2024 12:00 EST Appointment [facility] Hematology & Oncology - [address] [phone] 05/02/2024 15:00 EST Telemedicine [facility] Hematology & Oncology - [address] [phone] Alisson Carreon MD [address] [facility], [address] [place] [phone] 05/04/2024 10:15 EST Ancillary Procedure [facility] Cardiology - [address] [place], [place] [phone] 05/04/2024 11:30 EST Appointment [facility] Hematology & Oncology - [address] [phone] 05/04/2024 12:00 EST Appointment [facility] Hematology & Oncology [address] [phone] 06/12/2024 13:00 EST Appointment [facility] Radiology CT - [address] [phone] documented as of this encounter Visit Diagnoses Diagnosis Metastatic breast cancer- Primary documented in this encounter Care Teams Cabin Cleaner Relationship Specialty Start Date End Date Linda Blancas MD [facility] [address] [place] [address] PCP - General 01/06/11 documented as of this encounter
--- OUTSIDE RECORDS SUMMARY | 2024-03-20 15:05 | XMS_ITS | Encounter Summary ---
Author Organization [facility] Address [address] [place] [address] Care Team Providers Care Casing Inspector Name Role Phone Linda Blancas MD Primary Care Provider [phone] Reason for Visit * Reason Onset Date Comments Labs Only 01/31/2018 Encounter Details Date Type Department Care Team (Late st Contact Info) Description 01/31/2018 Telephone [facility] Cancer Center Hematology & Oncology - [facility] [address] [place] [address] Susana Doherty, RN Labs Only Social History [...] Telephone Encounter - Susana Doherty RN - 01/31/2018 1423 EDT LM for patient regarding her labs. Instructed to continue on her Ibrance and to call if she had anyquestions or concerns. documented in this encounter Plan of Treatment Upcoming Encounters Date Type Department Care Team (Late st Contact Info) Description 04/02/2024 10:30 EDT Appointment [facility] Interventional Radiology Unit [address] [place] [address] [phone] 04/02/2024 15:15 EDT Office Visit [facility] Surgical Oncology - [address] [phone] Adolfo Carreno MD [address] [place] [address] [phone] 04/05/2024 9:30 EDT Telemedicine [facility] - [facility] Palliative Care Services [address] [place] [address] [phone] Chichi Woods MD [address] [place] [address] [phone] 04/11/2024 15:00 EDT Telemedicine [facility] Hematology & Oncology [address] [phone] Alisson Carreon MD [address] [place] [address] [phone] 04/13/2024 13:30 EDT Appointment [facility] Hematology & Oncology [address] [phone] 04/13/2024 14:00 EDT Appointment [facility] Hematology & Oncology - [address] [phone] 04/16/2024 10:00 EST Telemedicine [facility] - [facility] Palliative Care Services [address] [place], [place] 7748[address] Chichi Woods MD 111 [facility], [address] [phone] 04/24/2024 9:00 EST Appointment [facility] Radiology CT Outpatient - [address] [address] 04/24/2024 11:00 EST Appointment [facility] Breast Imaging - [address] [phone] 04/27/2024 12:00 EST Appointment [facility] Hematology & Oncology - [address] [phone] 05/02/2024 15:00 EST Telemedicine [facility] Hematology & Oncology - [address] [phone] Alisson Carreon MD [address] [place] [address], [address] [place] [phone] 05/04/2024 10:15 EST Ancillary Procedure [facility] Cardiology - [place] [address] 05/04/2024 11:30 EST Appointment [facility] Hematology & Oncology - [address] [address] 05/04/2024 12:00 EST Appointment [facility] Hematology & Oncology - [address] [phone] 06/12/2024 13:00 EST Appointment [facility] Radiology CT - [address] [address] documented as of this encounter Visit Diagnoses Not on filedocumented in this encounter Care Teams Casing Inspector Relationship Specialty Start Date End Date Linda Blancas MD [address] [place] [address] [address] [place] [address] PCP - General 01/06/11 documented as of this encounter
--- OUTSIDE RECORDS SUMMARY | 2024-03-20 15:05 | XMS_ITS | Encounter Summary ---
Author Organization [facility] Address [address] [place] [address] Care Team Providers Care Mainspring Reverse Winder Name Role Phone Linda Blancas MD Primary Care Provider [phone] Reason for Visit * Reason Comments Tissue Private Detective Fill TE fill Encounter Details Date Type Department Care Team (Late st Contact Info) Description 10/24/2017 11:00 EDT Office Visit [facility] Plastic, Reconstructive & Cosmetic Surgery - [address], [address] [place], [place] [phone] Karen Singh PA-C [address] [place] [address] [address] [place] [address] Surgical follow-up care (Primary Dx) Social History [...] visiting a doctor's office or shopping? No 07/15/2017 Cognitive Status Response Date of Assessm ent Because of a physical, menta l, or emotional condition, does this person have serious difficulty concentrating, remembering, or making decisions? No 07/15/2017 documented as of this encounter Progress Notes * Karen Singh PA - 10/24/2017 1100 EDT SUBJECTIVE: Ms. Pleitez presents for follow up and fill of her right tissue county extension agent.?? No acute complaints of illness reported today. OBJECTIVE: On physical examination today the closure is in tact. There is no evidence of hematoma, seroma, infection, or drainage. All flaps are fully viable. ASSESSMENT & PLAN: She is healing well. After verbal informed consent was obtained the port waslocated magnetically and marked.? A chlorhexidine Prep was used for sterilization.?? Using standard sterile technique and a closed system the port was accessed and the county extension agent filled with 75 cc of injectable saline.?? The patient tolerated the procedure well.?? Access site was dressed with a spot Band-Aid to be removed tomorrow.?? Totals were recorded on the flow sheet.?? She now has a fill of 425 cc in a 535 cc tissue county extension agent.?? She will follow up in 3 weeks. TANK Dawn 10/24/2017 11:40 documented in this encounter Plan of Treatment Upcoming Encounters Date Type Department Care Team (Late st Contact Info) Description 04/02/2024 10:30 EDT Appointment [facility] Interventional Radiology Unit [address] [place] [id number] 04/02/2024 15:15 EDT Office Visit [facility] Surgical Oncology - [facility] [address] [place], [place] [phone] Adolfo Carreno MD 111 [facility], [address] [place] [phone] 04/05/2024 9:30 EDT Telemedicine [facility] - [facility] Palliative Care Services [address] [place] [address] [phone] Chichi Woods MD [address] [place] [address] [phone] 04/11/2024 15:00 EDT Telemedicine [facility] Hematology & Oncology - [address] [phone] Alisson Carreon MD [address] [place] [address] [address] [place] [phone] 04/13/2024 13:30 EDT Appointment [facility] Hematology & Oncology - [address] [phone] 04/13/2024 14:00 EDT Appointment [facility] Hematology & Oncology [address] [phone] 04/16/2024 10:00 EST Telemedicine [facility] Palliative Care Services [address] [place] [address] [phone] Chichi Woods MD [address] [place] [address] [phone] 04/24/2024 9:00 EST Appointment [facility] Radiology CT Outpatient - [address] [phone] 04/24/2024 11:00 EST Appointment [facility] Breast Imaging - [facility] [address] [address] 04/27/2024 12:00 EST Appointment [facility] Hematology & Oncology - [address] [phone] 05/02/2024 15:00 EST Telemedicine [facility] Hematology & Oncology [address] [phone] Alisson Carreon MD [address] [place] [address], [address] [place] [phone] 05/04/2024 10:15 EST Ancillary Procedure [facility] Cardiology - [address] [place] [address] 05/04/2024 11:30 EST Appointment [facility] Hematology & Oncology [address] [phone] 05/04/2024 12:00 EST Appointment [facility] Hematology & Oncology [address] [phone] 06/12/2024 13:00 EST Appointment [facility] Radiology CT - [address] [phone] documented as of this encounter Visit Diagnoses Diagnosis Surgical follow-up care- Primary Follow-up examination, following unspecified surgery documented in this encounter Care Teams Mainspring Reverse Winder Relationship Specialty Start Date End Date Linda Blancas MD [address] [place] [address] 30 [place] [address] PCP - General 01/06/11 documented as of this encounter
--- OUTSIDE RECORDS SUMMARY | 2024-03-20 15:05 | XMS_ITS | Encounter Summary ---
Author Organization [facility] Address [address] [place] [address] Care Team Providers Care Economic History Teacher Name Role Phone Linda Blancas MD Primary Care Provider [phone] Reason for Visit * Reason Onset Date Comments Appointment Related 01/17/2018 Encounter Details Date Type Department Care Team (Late st Contact Info) Description 01/17/2018 Telephone [facility] Surgical Oncology - [address] [address] Adolfo Carreno MD 111 [facility], Level 2 [place] [address] Appointment Related Social History Tobacco [...] No 07/15/2017 Cognitive Status Response Date of Assess ent Because of a physical, menta l, or emotional condition, does this person have serious difficulty concentrating, remembering, or making decisions? No 07/15/2017 documented as of this encounter Miscellaneous Notes * Telephone Encounter - Mirna Ross - 01/17/2018 1424 EDT Left message for patient letting her know that her time has changed from 11am to 12:45pm on 01/19/[address] Carreno will be in the operating room in the morning, asked her to call back to confirm. documented in this encounter Plan of Treatment Upcoming Encounters Date Type Department Care Team (Late st Contact Info) Description 04/02/2024 10:30 EDT Appointment [facility] Interventional Radiology Unit [address] [place] [address] 04/02/2024 15:15 EDT Office Visit [facility] Surgical Oncology - [address] [id number] Adolfo Carreno MD [address] [place] [phone] 04/05/2024 9:30 EDT Telemedicine [facility] Palliative Care Services [address] [place] [address] [phone] Chichi Woods MD [address] [place] [phone] 04/11/2024 15:[address] [facility] Hematology & Oncology [address] [place] [address] [address] Alisson Carreon MD [address] [place] [address] [phone] 04/13/2024 13:[address] [facility] Hematology & Oncology - [address] 607351 04/13/2024 14:[address] [facility] Hematology & Oncology [address] [place] [address] [address] 04/16/2024 10:00 EST Telemedicine [facility] - [facility] Palliative Care Services [address] [place] [address] [phone] Chichi Woods MD [address] [place] [address], [address] [phone] 04/24/2024 9:00 EST Appointment [facility] Radiology CT Outpatient - [address] [id number] 04/24/2024 11:00 EST Appointment [facility] Breast Imaging - [facility] [address] [phone] 04/27/2024 12:[address] [facility] Hematology & Oncology [address] [place] [address] 074051 05/02/2024 15:[address] [facility] Hematology & Oncology - [address] 729811 Alisson Carreon MD [address] [place] [address], Level 2 [place] [phone] 05/04/2024 10:15 EST Ancillary Procedure [facility] Cardiology [place] [place] [address] 05/04/2024 11:[address] [facility] Hematology & Oncology [address] [place] [address] [address] 05/04/2024 12:00 EST Appointment [facility] Hematology & Oncology - [address] [address] 06/12/2024 13:00 EST [facility]ointment [facility] Rad[facility] - [facility] [address] [place] [address] documented as of this encounter Visit Diagnoses Not on filedocumented in this encounter Care Teams Economic History Teacher Relationship Specialty Start Date End Date Linda Blancas MD [facility] [address] [place] [address] PCP - General 01/06/11 documented as of this encounter
--- OUTSIDE RECORDS SUMMARY | 2024-03-20 15:05 | XMS_ITS | Encounter Summary ---
Author Organization [facility] Address [address] [place] [address] Care Team Providers Care Prospecting Driller Helper Name Role Phone Linda Blancas MD Primary Care Provider [phone] Reason for Visit * Reason Comments Well Woman Exam Encounter Details Date Type Department Care Team (Late st Contact Info) Description 01/20/2018 13:00 EDT Office Visit [facility] Gynecologic Oncology [address] [address] Quita Babb PA-C 111 [facility] 2 [place] [address] Encounter for gynecological examination without [...] Reading Time Taken Comments Blood Pressure 110/70 01/20/2018 1318 EDT Pulse - - Temperature - - Respiratory Rate - - Oxygen Saturation - - Inhaled Oxygen Concentration - - Weight 65.8 kg (145 lb) 01/20/2018 1318 EDT Height - - Body Mass Index 27.03 01/19/2018 1018 EDT documented in this encounter Functional Status [...] No 01/19/2018 documented as of this encounter Progress Notes * Quita Babb PA - 01/20/2018 1300 EDT Subjective: Patient ID: Sunshine Pleitez is an 57 y.o. female. Chief Complaint Patient presents with ??? Well Woman Exam HPI Sunshine Pleitez??is a 57 y.o.??female who presents today for a yearly exam, last seen one year ago for her annual exam. ?? Most significantly, Sendy has been diagnosed with recurrent metastatic ductal breast carcinoma in October of 2016. 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 She had been in close surveillance with the breast cancer center, and as she was over 10 years out from her diagnosis was on yearly surveillance. In October, she noticed some changes in her right breast, which ultimately led to imaging and a biopsy that was consistent invasive ductal carcinoma, with disease on her right chest wall, as well as enlarged mediastinal lymph nodes and small lung nodules. She is currently receiving treatment with Dr. Colin, consisting of letrozole and ibrance, tolerating this reasonably well with complaints of fatigue and easy bruisability. ?? Prior to her breast cancer history, [...] well as 12/2014, NIL and negative HPV. ?? History of STDs: yes, HSV II, on suppressive therapy with no outbreaks over the past year. Currently , monogamous relationship. ?? She has no Specific gynecologic complaints today. Does not have significant vaginal dryness, deniesdyspareunia. She follows reguarly with Adolfo Carreno. Patient Active Problem List Diagnosis ??? Papanicolaou [...] Cancer Paternal Aunt 35 Social Social History Substance Use Topics ??? Smoking status: Never Smoker ??? Smokeless tobacco: Never Used ??? Alcohol use 0.6 - 1.8 oz/week 1 - 3 Glasses of wine per week Current Outpatient Prescriptions on File Prior to Visit Medication Sig [...] Hives Light lavender rash Review of Systems - See HPI Objective: BP 110/70 Wt 65.8 kg (145 lb) BMI 27.03 kg/m2 Physical Exam Constitutional: She is oriented to [...] has no wheezes. She has no rales. Right breast exhibits no inverted nipple, no mass, no nipple discharge, no skinchange and no tenderness. Left breast exhibits no inverted nipple, no mass, no nipple discharge, noskin change and no tenderness. Breasts are symmetrical. There is no breast swelling. Breast bleeding is absent. Status post right-sided mastectomy with reconstructive surgery, as well as left- sided breast implant. Currently right breast is smaller than left breast following deflation of her right-sided implant. Abdominal: Soft. Bowel sounds are normal. She exhibits no distension. There is no tenderness. Thereis no rebound. Genitourinary: Vagina normal and uterus normal. There is no rash, tenderness, lesion or injury on the right labia. There is no rash, tenderness, lesion or injury on the left labia. No vaginal discharge found. Musculoskeletal: Normal range of motion. Lymphadenopathy: She has no cervical adenopathy. She has no axillary adenopathy. Neurological: She is alert and oriented to person, place, and time. Skin: Skin is warm and dry. No erythema. No pallor. Psychiatric: She has a normal mood and affect. Her behavior is normal. Judgment and thought contentnormal. 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 Pap not due, next pap with HPV due in 2019. #2 ongoing follow-up with medical oncology as well as surgical oncology #3 doing well with regards to her hot flashes on gabapentin and Effexor. #4 no issues with insertional dyspareunia or dryness 5. Return in 1 year for gynecologic exam, sooner if problems or concerns. TANK Felipe documented in this encounter Plan of Treatment Upcoming Encounters Date Type Department Care Team (Late st Contact Info) Description 04/02/2024 10:30 EDT Appointment [facility] Interventional Radiology Unit [address] [place] [address] [phone] 04/02/2024 15:15 EDT Office Visit [facility] Surgical Oncology - [address] [phone] Adolfo Carreno MD [address] [place] [phone] 04/05/2024 9:30 EDT Telemedicine [facility] Palliative Care Services [address] [place] [address] [phone] Chichi Woods MD [address] [place] [address], [address] [phone] 04/11/2024 15:00 EDT Telemedicine [facility] Hematology & Oncology - [address] 086921 Alisson Carreon MD [address] [place] [address] [phone] 04/13/2024 13:30 EDT Appointment [facility] Hematology & Oncology - [address] [phone] 04/13/2024 14:00 EDT Appointment [facility] Hematology & Oncology [address] [address] 04/16/2024 10:00 EST Telemedicine [facility] - [facility] Palliative Care Services [address] [place] [address] [phone] Chichi Woods MD [address] [place] [address], [address] [phone] 04/24/2024 9:00 EST Appointment [facility] Radiology CT Outpatient - [address] 975281 04/24/2024 11:00 EST Appointment [facility] Breast Imaging - [facility] S [address] [phone] 04/27/2024 12:00 EST Appointment [facility] Hematology & Oncology [address] 079471 05/02/2024 15:00 EST Telemedicine [facility] Hematology & Oncology - [address] 139371 Alisson Carreon MD [address] [place] [address], Level 2 [place] [phone] 05/04/2024 10:15 EST Ancillary Procedure [facility] Cardiology [place] [address] [place] [address] 05/04/2024 11:30 EST Appointment [facility] Hematology & Oncology [address] [address] 05/04/2024 12:00 EST Appointment [facility] Hematology & Oncology - [address] [address] 06/12/2024 13:00 EST [facility]ointment [facility] Radiology [facility] - [address] [address] documented as of this encounter Visit Diagnoses Diagnosis Encounter for gynecological examination without abnormal finding- Primary Routine gynecological examination documented in this encounter Care Teams Prospecting Driller Helper Relationship Specialty Start Date End Date Linda Blancas MD [facility] [address] [place] [address] PCP - General 01/06/11 documented as of this encounter
--- OUTSIDE RECORDS SUMMARY | 2024-03-20 15:05 | XMS_ITS | Encounter Summary ---
Author Organization [facility] Address [address] [place] [address] Care Team Providers Care Flake Cutter Operator Name Role Phone Linda Blancas MD Primary Care Provider [phone] Reason for Visit * Reason Onset Date Comments Other 10/06/2017 Encounter Details Date Type Department Care Team (Late st Contact Info) Description 10/06/2017 Telephone [facility] Hematology & Oncology - [facility] [address] [place], [place] 637081 Melyssa Varela, JOHANS Other Social History Tobacco Use Types Packs/Day [...] Miscellaneous Notes * Telephone Encounter - Melyssa Varela - 10/06/2017 5347 EDT Child Life services were requested to make outreach to Sunshine Montes De Ocawest to offer family-centered support in the context of Sendy's cancer diagnosis. Connected with Sendy over the phone tointroduce services and offer support. Sendy has a 1 year old great nephew and 3 year old great niece. Sendy is thinking about legacy projects for them and was interested in hearing about what Child Life can offer. At this point, Sendy is focusing more on working on the financial logistics of end-of-life planning, but feels that maybe in the Fall she'll be ready to talk about legacy work for her young niece and nephew and will be interested in processing how to support them with her illness as th ey get older and more aware. Sendy has my contact information and plans to reach out for support in the future, as needed. -Kaitlin Varela MA, CCLS Pager #[phone] documented in this encounter Plan of Treatment Upcoming Encounters Date Type Department Care Team (Late st Contact Info) Description 04/02/2024 10:30 EDT Appointment [facility] Interventional Radiology Unit [address] [place], [place] 916101 04/02/2024 15:15 EDT Office Visit [facility] Surgical Oncology - [facility] [address] [place], [place] 495221 Adolfo Carreno MD 111 [facility], Level 2 [place] [phone] 04/05/2024 9:30 EDT Telemedicine [facility] - [facility] Palliative Care Services [address] [place], [place] 237691 Chichi Woods MD 111 [facility], [address] [place] [phone] 04/11/2024 15:00 EDT Telemedicine [facility] Hematology & Oncology - [address] 002371 Alisson Carreon MD [address] [place] [address] 2 [place] [phone] 04/13/2024 13:30 EDT Appointment [facility] Hematology & Oncology [address] 097441 04/13/2024 14:00 EDT Appointment [facility] Hematology & Oncology [address] [phone] 04/16/2024 10:00 EST Telemedicine [facility] - [facility] Palliative Care Services [address] [place] [address] [phone] Chichi Woods MD [address] [place] [address] 262 [place] [phone] 04/24/2024 9:00 EST Appointment [facility] Radiology CT Outpatient - [address] 699901 04/24/2024 11:00 EST Appointment [facility] Breast Imaging - [address] 783441 04/27/2024 12:00 EST Appointment [facility] Hematology & Oncology - [address] 286991 05/02/2024 15:00 EST Telemedicine [facility] Hematology & Oncology - [address] 447931 Alisson Carreon MD [address] [place] [address] 2 [place] [phone] 05/04/2024 10:15 EST Ancillary Procedure [facility] Cardiology - [address] [place] [address] 05/04/2024 11:30 EST Appointment [facility] Hematology & Oncology [address] 081191 05/04/2024 12:00 EST Appointment [facility] Hematology & Oncology [address] 115111 06/12/2024 13:00 EST Appointment [facility] Radiology CT [address] 705871 documented as of this encounter Visit Diagnoses Not on filedocumented in this encounter Care Teams Flake Cutter Operator Relationship Specialty Start Date End Date Linda Blancas MD [facility] [address] [place] [address] PCP - General 01/06/11 documented as of this encounter
--- OUTSIDE RECORDS SUMMARY | 2024-03-20 15:05 | XMS_ITS | Encounter Summary ---
Author Organization [facility] Address [address] [place] [address] Care Team Providers Care Range Management Specialist Name Role Phone Linda Blancas MD Primary Care Provider [phone] Reason for Visit * Reason Comments Tissue Tractor Crane Operator Fill te fill Encounter Details Date Type Department Care Team (Latest Contact Info) Description 10/03/2017 13:00 EDT Office Visit [facility] Plastic, Reconstructive & Cosmetic Surgery - [address], [address] [place], [place] [phone] Deana Shaw, PA-C [address] [place] [phone] Surgical follow-up care (Primary Dx) Social [...] this encounter Progress Notes * Deana Shaw PA - 10/03/2017 1300 EDT Sunshine is here for fill of her right tissue grit removal operator.?? She has been doing well since her last visit and denies fever, redness over grit removal operator or pain. On physical examination today the closure is in tact. There is no evidence of hematoma, seroma, infection, or drainage. All flaps are fully viable. Assesment/Plan: She is healing well. After verbal informed consent was obtained the port was located magnetically and marked.? A chloraprep was used for sterilization.?? Using standard sterile technique and a closed system the port was accessed and the grit removal operator filled with 100 cc of injectable saline.?? The patient tolerated the procedure well.?? Access site was dressed with a spot bandaid to be removed tomorrow.?? Totals were recorded on the flow sheet.?? She now has a fill of 275 cc in a 535 cc tissue grit removal operator.?? Signs and symptoms of infection were discussed. She will follow up in 2-3 weeks. TANK Ryan documented in this encounter Plan of Treatment Upcoming Encounters Date Type Department Care Team (Late st Contact Info) Description 04/02/2024 10:30 EDT Appointment [facility] Interventional Radiology Unit [address] [place] [address] [phone] 04/02/2024 15:15 EDT Office Visit [facility] Surgical Oncology - [facility] [address] [place] [address] Adolfo Carreno MD 111 [facility], Level [address] [place] [phone] 04/05/2024 9:[address] [facility] - [facility] Palliative Care Services [address] [place] [address] [phone] Chichi Woods MD [address] [place] [phone] 04/11/2024 15:00 EDT Telemedicine [facility] Hematology & Oncology - [address] 704641 Alisson Carreon MD [address] [place] [address] [address] [place] [phone] 04/13/2024 13:30 EDT Appointment [facility] Hematology & Oncology - [address] [address] 04/13/2024 14:00 EDT Appointment [facility] Hematology & Oncology [address] [address] 04/16/2024 10:00 EST Telemedicine [facility] Palliative Care Services [address] [place] [address] [phone] Chichi Woods MD [address] [place] [address] [phone] 04/24/2024 9:00 EST Appointment [facility] Radiology CT Outpatient - [address] 092141 04/24/2024 11:00 EST Appointment [facility] Breast Imaging - [address] [address] 04/27/2024 12:00 EST Appointment [facility] Hematology & Oncology - [address] 073431 05/02/2024 15:00 EST Telemedicine [facility] Hematology & Oncology [address] 136671 Alisson Carreon MD [address] [place] [address], Level [address] [place] [phone] 05/04/2024 10:15 EST Ancillary Procedure [facility] Cardiology - [address] [place] [address] 05/04/2024 11:30 EST Appointment [facility] Hematology & Oncology [address] [phone] 05/04/2024 12:00 EST Appointment [facility] Hematology & Oncology [address] 627211 06/12/2024 13:00 EST Appointment [facility] Radiology CT - [address] [phone] documented as of this encounter Visit Diagnoses Diagnosis Surgical follow-up care- Primary Follow-up examination, following unspecified surgery documented in this encounter Care Teams Range Management Specialist Relationship Specialty Start Date End Date Linda Blancas MD [address] [place] [address] 30 [place] [address] PCP - General 01/06/11 documented as of this encounter
--- OUTSIDE RECORDS SUMMARY | 2024-03-20 15:05 | XMS_ITS | Encounter Summary ---
Author Organization [facility] Address [address] [place] [address] Care Team Providers Care Desizing Machine Operator Head End Name Role Phone Linda Blancas MD Primary Care Provider [phone] Adolfo Carreno MD Unavailable [phone] Augustina Colin MD PhD Unavailable Unavailable Reason for Visit * Reason Onset Date Comments Results 10/12/2017 Encounter Details Date Type Department Care Team (Late st Contact Info) Description 10/12/2017 Telephone [facility] Hematology & Oncology - Main [place] [address] [place], [place] [address] Augustina Colin, PhD Results Social History Tobacco [...] * Telephone Encounter - Daniela Botello - 10/12/2017 1120 EDT Labs entered from: [facility] Daniela Botello 10/12/2017 11:22 documented in this encounter Plan of Treatment Upcoming Encounters Date Type Department Care Team (Late st Contact Info) Description 04/02/2024 10:30 EDT Appointment [facility] Interventional Radiology Unit [address] [place] [address] [phone] 04/02/2024 15:15 EDT Office Visit [facility] Surgical Oncology - [address] [phone] Adolfo Carreno MD 111 [facility] 2 [place] [phone] 04/05/2024 9:30 EDT Telemedicine [facility] - [facility] Palliative Care Services [address], [place] [phone] Chichi Woods MD [address] [place] [address] [phone] 04/11/2024 15:00 EDT Telemedicine [facility] Hematology & Oncology - [address] [phone] Alisson Carreon MD [address] [place] [address] 2 [place] [phone] 04/13/2024 13:30 EDT Appointment [facility] Hematology & Oncology - [address] [phone] 04/13/2024 14:00 EDT Appointment [facility] Hematology & Oncology [address] [phone] 04/16/2024 10:00 EST Telemedicine [facility] - [facility] Palliative Care Services [address] [place] [address] [phone] Chichi Woods MD [address] [place] [address], [address] [phone] 04/24/2024 9:00 EST [facility] Rad[facility] Outpatient - [address] [phone] 04/24/2024 11:00 EST Appointment [facility] Breast Imaging - [facility] [address] [place] 1 [place], [place] [address] 04/27/2024 12:00 EST Appointment [facility] Hematology & Oncology - [address] [phone] 05/02/2024 15:00 EST Telemedicine [facility] Hematology & Oncology [address] [phone] Alisson Carreon MD [address] [place] [address], [facility], Level [address] [place] [phone] 05/04/2024 10:15 EST Ancillary Procedure [facility] Cardiology - [place] [address] 05/04/2024 11:30 EST Appointment [facility] Hematology & Oncology [address] [phone] 05/04/2024 12:00 EST Appointment [facility] Hematology & Oncology - [address] [phone] 06/12/2024 13:00 [facility] Radiology CT - Main [address] [address] documented as of this encounter Procedures Procedure Name Priority Date/Time Associated Diagnosis Comments COMPLETE BLOOD COUNT AND DIFFERENTIAL Routine 10/10/2017 COMPREHENSIVE METABOLIC PANEL (CMP) Routine 10/10/2017 COMPLETE BLOOD COUNT AND DIFFERENTIAL Routine 10/04/2017 COMPREHENSIVE METABOLIC PANEL (CMP) Routine 10/04/2017 COMPLETE BLOOD COUNT AND DIFFERENTIAL Routine 09/27/2017 COMPREHENSIVE METABOLIC PANEL (CMP) Routine 09/27/2017 COMPREHENSIVE METABOLIC PANEL (CMP) Routine 09/19/2017 documented in this encounter Results * HEMAGRAM AND DIFFERENTIAL (10/10/2017) WBC, External 3.1 [facility] RBC, External 3.29 [facility] Hemoglobin, External 11.9 [facility] HCT, External 35.6 [facility] MCV, External 108 [facility] MCH, External 36.2 [facility] MCHC, External 33.4 [facility] PLT, External 216 [facility] RDW-CV, External 14.6 [facility] Neutrophils, External 52.3 [facility] Lymphocytes, External 39.2 [facility] Monocytes, External 7.0 [facility] Eosinophils, External 0.6 [facility] Basophils, External 0.6 [facility] ABS Neutrophils, External 1.64 [facility] ABS Lymphs, External 1.23 [facility] ABS Monocytes, External 0.22 [facility] ABS Eosinophils, External 0.02 [facility] ABS Basophils, External 0.02 [facility] Blood specimen (specimen) 10/10/2017 Historical Provider PACKAGES & DNA NH OBE ORDERABLES [facility] * COMPREHENSIVE METABOLIC PANEL (CMP) (10/10/2017) GFR, Calculated, External [facility] Glucose, Serum, External 81 74 - 106 [facility] Albumin, External 3.7 3.4 - 5.0 [facility] Total Alkaline Phosphatase, External 80 48 - 129 [facility] ALT, External 21 13 - 61 [facility] AST, External 17 15 - 37 [facility] BUN, External 17 7 - 18 [facility] Calculated Calcium, External [facility] Calcium, External 9.0 8.5 - 10.1 [facility] Chloride, External 107 98 - 107 [facility] CO2, External 29 21 - 32 [facility] Creatinine, External 0.9 0.6 - 1.3 [facility] Fasting?, External [facility] Potassium, External 4.3 3.5 - 5.1 [facility] Sodium, External 144 136 - 145 [facility] Total Protein, External 7.1 6.4 - 8.2 [facility] Bilirubin, Total, External 0.34 0.20 - 1.00 [facility] Blood specimen (specimen) 10/10/2017 Historical Provider CHEMISTRY & BLOOD GAS ORDERABLES [facility] * HEMAGRAM AND DIFFERENTIAL (10/04/2017) WBC, External 4.2 [facility] RBC, External 3.38 [facility] Hemoglobin, External 12.2 [facility] HCT, External 36.2 [facility] MCV, External 107 [facility] MCH, External 36.1 [facility] MCHC, External 33.7 [facility] PLT, External 304 [facility] RDW-CV, External 14.2 [facility] Neutrophils, External 45.3 [facility] Lymphocytes, External 45.8 [facility] Monocytes, External 6.7 [facility] Eosinophils, External 1.0 [facility] Basophils, External 1.2 [facility] ABS Neutrophils, External 1.91 [facility] ABS Lymphs, External 1.93 [facility] ABS Monocytes, External 0.28 [facility] ABS Eosinophils, External 0.04 [facility] ABS Basophils, External 0.05 [facility] Blood specimen (specimen) 10/04/2017 Historical Provider PACKAGES & DNA NH OBE ORDERABLES [facility] * COMPREHENSIVE METABOLIC PANEL (CMP) (10/04/2017) GFR, Calculated, External [facility] Glucose, Serum, External 82 [facility] Albumin, External 3.7 [facility] Total Alkaline Phosphatase, External 79 [facility] ALT, External 20 [facility] AST, External 21 [facility] BUN, External 26 [facility] Calculated Calcium, External [facility] Calcium, External 9.1 [facility] Chloride, External 107 [facility] CO2, External 29 [facility] Creatinine, External 0.8 [facility] Fasting?, External [facility] Potassium, External 4.2 [facility] Sodium, External 143 [facility] Total Protein, External 7.2 [facility] Bilirubin, Total, External 0.32 [facility] Blood specimen (specimen) 10/04/2017 Historical Provider CHEMISTRY & BLOOD GAS ORDERABLES [facility] * HEMAGRAM AND DIFFERENTIAL (09/27/2017) WBC, External 6.3 [facility] RBC, External 3.53 [facility] Hemoglobin, External 12.7 [facility] HCT, External 37.6 [facility] MCV, External 107 [facility] MCH, External 36.0 [facility] MCHC, External 33.8 [facility] PLT, External 346 [facility] RDW-CV, External 14.7 [facility] Neutrophils, External 71.9 [facility] Lymphocytes, External 23.1 [facility] Monocytes, External 3.6 [facility] Eosinophils, External 0.2 [facility] Basophils, External 0.9 [facility] ABS Neutrophils, External 4.55 [facility] ABS Lymphs, External 1.46 [facility] ABS Monocytes, External 0.23 [facility] ABS Eosinophils, External 0.01 [facility] ABS Basophils, External 0.06 [facility] Blood specimen (specimen) 09/27/2017 Historical Provider PACKAGES & DNA NH OBE ORDERABLES [facility] * COMPREHENSIVE METABOLIC PANEL (CMP) (09/27/2017) GFR, Calculated, External [facility] Glucose, Serum, External 87 [facility] Albumin, External 3.6 [facility] Total Alkaline Phosphatase, External 89 [facility] ALT, External 19 [facility] AST, External 16 [facility] BUN, External 18 [facility] Calculated Calcium, External [facility] Calcium, External 8.8 [facility] Chloride, External 108 [facility] CO2, External 26 [facility] Creatinine, External 0.8 [facility] Fasting?, External [facility] Potassium, External 4.0 [facility] Sodium, External 143 [facility] Total Protein, External 7.4 [facility] Bilirubin, Total, External 0.32 [facility] Blood specimen (specimen) 09/27/2017 Historical Provider CHEMISTRY & BLOOD GAS ORDERABLES [facility] * COMPREHENSIVE METABOLIC PANEL (CMP) (09/19/2017) GFR, Calculated, External [facility] Glucose, Serum, External 83 [facility] Albumin, External 3.7 [facility] Total Alkaline Phosphatase, External 82 [facility] ALT, External 22 [facility] AST, External 20 [facility] BUN, External 15 [facility] Calculated Calcium, External [facility] Calcium, External 8.7 [facility] Chloride, External 108 [facility] CO2, External 27 [facility] Creatinine, External 0.7 [facility] Fasting?, External [facility] Potassium, External 4.4 [facility] Sodium, External 143 [facility] Total Protein, External 7.2 [facility] Bilirubin, Total, External 0.22 [facility] Blood specimen (specimen) 09/19/2017 Historical Provider CHEMISTRY & BLOOD GAS ORDERABLES [facility] documented in this encounter Visit Diagnoses Not on filedocumented in this encounter Additional Health Concerns Infection Onset Date Last Indicated Resolved Time R/O COVID-19 12/12/2023 12/12/2023 12/12/2023 15:3 5 EDT R/O COVID-19 01/08/2024 01/08/2024 01/08/2024 18:2 6 EDT R/O COVID-19 01/16/2024 01/16/2024 01/16/2024 17:5 0 EDT documented as of this encounter Care Teams Desizing Machine Operator Head End Relationship Specialty Start Date End Date Linda Blancas MD [facility] [address] [place] [address] PCP - General 01/06/11 Adolfo Carreno MD [address] [place] [address], [facility], Level [address] [place] [phone] General Surgery 04/26/19 Augustina Colin MD PhD [address] [place] [address] 2 [place] [phone] Medical Oncology 04/26/19 documented as of this encounter
--- OUTSIDE RECORDS SUMMARY | 2024-03-20 15:05 | XMS_ITS | Encounter Summary ---
Author Organization [facility] Address [address] [place] [address] Care Team Providers Care Assistant Family Teacher Name Role Phone Linda Blancas MD Primary Care Provider [phone] Reason for Visit * Reason Comments Follow-up Encounter Details Date Type Department Care Team (Late st Contact Info) Description 01/19/2018 10:00 EDT Office Visit [facility] Cancer Center Hematology & Oncology - [facility] [address] [place] [address] Augustina Colin MD PhD Metastatic breast cancer [...] Sign Reading Time Taken Comments Blood Pressure 114/75 01/19/2018 1018 EDT Pulse 88 01/19/2018 1018 EDT Temperature 37.2 ??C (99 ??F) 01/19/2018 1018 EDT Respiratory Rate 18 01/19/2018 1018 EDT Oxygen Saturation 100% 01/19/2018 1018 EDT Inhaled Oxygen Concentration - - Weight 66.2 kg (146 lb) 01/19/2018 1018 EDT Height 156 cm (5' 1.42) 01/19/2018 1018 EDT Body Mass Index 27.21 01/19/2018 1018 EDT documented in this encounter [...] No 01/19/2018 documented as of this encounter Patient Instructions * Patient Instructions* Karen Peralta - 01/19/2018 10:[address] scan scheduled for April. Please check in with registration at 930AM and scan starts at 10AM. Please eat lightly and push fluids. documented in this encounter Progress Notes * Augustina Colin MD - 01/19/2018 1000 EDT REASON FOR OFFICE VISIT: Discussion of side effects related to treatment ? PROBLEM LIST: 1. 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 a. ??Ultrasound performed in [place]??identifying an irregular heterogeneous soft tissue mass measuring 1.2 x 1.2 x 1.5 cm. ?? 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 ??HER-2 1+ by IHC. ??ANNE [...] right breast tumor/revision and placement of tissue radiation monitor. ??1.9 cm tumor at time of surgery, well differentiated, with LVI present, and negative margins. ?? 2. Restaging scans: CT scan of the chest completed 10/12/2017 with [...] ??gastroesophageal reflux disease. SUBJECTIVE: Ms Pleitez presents to clinic today to discuss side effects related to letrozole and palbociclib since reducing the dose she has not had a problem with any oral ulcers and her gum regression is improving. She has not had problems with fevers. The only side effect that she notices isthat she sleeps more at night. She does not need naps. She has moderate hot flashes but at this point they do not interfere with her function. She is due for a plastic surgery intervention in March. ROS: A 10 point review of systems was obtained. Other than described in the subjective she notes fatigue relieved with rest, moderate hot flashes, occasional headaches. The remaining review systems is discussed and is negative. Medications [...] 2 Caps by mouth 2 times daily. ??? IBRANCE 100 mg capsule TAKE 1 [...] - 3 Glasses of wine per week presents to the clinic alone today. Her mother recently . Objective: BP 114/75 Pulse 88 Temp 37.2 ??C (99 ??F) Resp 18 Ht 156 cm (61.42) Wt 66.2 kg (146 lb) SpO2 100% BMI 27.21 kg/m2 Estimated body mass index is 27.21 kg/(m^2) as calculated from the following: Height as of this encounter: 156 cm (61.42). Weight as of this encounter: 66.2 kg (146 lb). ECOG Performance Status: 0 General: Comfortable, [...] known visit with results is: Telephone on 11/14/2017 Component Date Value Ref Range Status ? ? GFR, Calculated, External 11/09/2017 >60 Final ??? Glucose, Serum, External 11/09/2017 96 74 - 106 Final ??? Albumin, External 11/09/2017 3.8 3.4 - 5.0 Final ??? Total Alkaline Phosphatase, Outside Sales Associate* 11/09/2017 84 48 - 129 Final ??? ALT, External 11/09/2017 19 13 - 61 Final ??? AST, External 11/09/2017 15 15 - 37 Final ??? BUN, External 11/09/2017 15 7 - 18 Final ??? Calcium, External 11/09/2017 8.6 8.5 - 10.1 Final ??? Chloride, External 11/09/2017 108* 98 - 107 Final ??? CO2, External 11/09/2017 26 21 - 32 Final ??? Creatinine, External 11/09/2017 0.8 0.6 - 1.3 Final ??? Potassium, External 11/09/2017 3.7 3.5 - 5.1 Final ??? Sodium, External 11/09/2017 144 136 - 145 Final ??? Total Protein, External 11/09/2017 7.1 6.4 - 8.2 Final ??? Bilirubin, Total, External 11/09/2017 0.43 0.20 - 1.00 Final ??? WBC, External 11/09/2017 3.3* 4.5 - 11.0 Final ??? RBC, External 11/09/2017 3.43* 4.00 - 5.20 Final ??? Hemoglobin, External 11/09/2017 12.5 12.0 - 15.0 Final ??? HCT, External 11/09/2017 37.0 36.0 - 46.0 Final ??? MCV, External 11/09/2017 108* 80 - 100 Final ??? MCH, External 11/09/2017 36.4* 26.0 - 34.0 Final ??? MCHC, External 11/09/2017 33.8 31.0 - 37.0 Final ??? PLT, External 11/09/2017 214 150 - 350 Final ??? RDW-CV, External 11/09/2017 13.7 11.5 - 14.5 Final ??? Neutrophils, External 11/09/2017 38 31 - 76 Final ??? Lymphocytes, External 11/09/2017 37 24 - 44 Final ??? Monocytes, External 11/09/2017 5 2 - 11 Final ??? Eosinophils, External 11/09/2017 1 1 - 4 Final ??? Basophils, External 11/09/2017 2 0 - 2 Final ??? ABS Neutrophils, External 11/09/2017 1.3* 1.5 - 7.8 Final ??? ABS Lymphs, External 11/09/2017 1.8 1.1 - 4.8 Final ??? ABS Monocytes, External 11/09/2017 0.2 Final ??? ABS Eosinophils, External 11/09/2017 0.0 Final ??? ABS Basophils, External 11/09/2017 0.1 Final ASSESSMENT: ??Ms Bernstein is a 57-year-old female with metastatic breast cancer with metastatic disease in the mediastinal lymph node and skin. The largest area of disease on the lateral aspect of the breast was removed at the time of implant removal. She still has some areas of metastatic disease and we will plan to do a CT scan in the fall. We will check CA-27-29 to see if we can use that as a marker of progression. She has been on letrozole and palbociclib for over a year and tolerates it. She currently receives palbociclib 100 mg daily for 3 weeks out of 4. given the small amount of disease we could consider holding the palbciclib and continuing with letrozole. We will hold the palb ociclib around the time of surgery anyway. ? PLAN: 1. Continue letrozole 2.5 mg daily and palbociclib 100mg daily for 21 out of 28 days. ?? 2. Check CBC and differential monthly prior to her initiating the palbociclib 3. Repeat staging CT scans in Apr 18 when she is here for a postoperative visit 4. ??Follow-up return in two??months ? Patient is encouraged call with any intercurrent concerns or problems. ?? Augustina Colin MD 01/19/2018 10:35 documented in this encounter Plan of Treatment Upcoming Encounters Date Type Department Care Team (Late st Contact Info) Description 04/02/2024 10:30 EDT Appointment [facility] Interventional Radiology Unit [address] [place] [address] [phone] 04/02/2024 15:15 EDT Office Visit [facility] Surgical Oncology - [address] [phone] Adolfo Carreno MD [address] [place] [phone] 04/05/2024 9:30 EDT Telemedicine [facility] - [facility] Palliative Care Services [address] [place] [address] [phone] Chichi Woods MD [address] [place] [address], [address] [phone] 04/11/2024 15:00 EDT Telemedicine [facility] Hematology & Oncology - [address] [phone] Alisson Carreon MD [address] [place] [address] 2 [place] [phone] 04/13/2024 13:30 EDT Appointment [facility] Hematology & Oncology - [address] [phone] 04/13/2024 14:00 EDT Appointment [facility] Hematology & Oncology - [address] [address] 04/16/2024 10:00 EST Telemedicine [facility] - [facility] Palliative Care Services [address] [place] [address] [phone] Chichi Woods MD [address] [place] [address] [phone] 04/24/2024 9:00 EST Appointment [facility] Radiology CT Outpatient - [address] [address] 04/24/2024 11:00 EST Appointment [facility] Breast Imaging - [facility] [address] [place], [place] [phone] 04/27/2024 12:00 EST Appointment [facility] Hematology & Oncology - [address] [phone] 05/02/2024 15:00 EST Telemedicine [facility] Hematology & Oncology - [address] [address] Alisson Carreon MD [address] [place] [address], [address] [place] [phone] 05/04/2024 10:15 EST Ancillary Procedure [facility] Cardiology - [place] [address] 05/04/2024 11:30 EST Appointment [facility] Hematology & Oncology - [address] [phone] 05/04/2024 12:00 EST Appointment [facility] Cancer Center Hematology & Oncology - [address] [phone] 06/12/2024 13:00 EST Appointment [facility] Radiology CT - [address] [address] documented as of this encounter Visit Diagnoses Diagnosis Metastatic breast cancer- Primary documented in this encounter Care Teams Assistant Family Teacher Relationship Specialty Start Date End Date Linda Blancas MD [facility] [address] [place] [address] PCP - General 01/06/11 documented as of this encounter
--- OUTSIDE RECORDS SUMMARY | 2024-03-20 15:05 | XMS_ITS | Encounter Summary ---
Author Organization [facility] Address [address] [place] [address] Care Team Providers Care Ichthyology Teacher Name Role Phone Linda Blancas MD Primary Care Provider [phone] Encounter Details Date Type Department Care Team (Latest Contact Info) Description 10/12/2017 9:39 EDT - 10/12/2017 23:59 EDT Hospital Encounter [facility] [address] [place] [address] Augustina Colin MD PhD Discharge Disposition: Auto [...] No 07/15/2017 documented as of this encounter Discharge Diagnoses Diagnosis C50.919 Malignant neoplasm of unspecified site of unspecified female breast-C50.919[ICD-10-CM] R91.1 Solitary pulmonary nodule-R91.1[ICD-10-CM] documented in this encounter Medications at Time [...] Cap 3 08/16/2012 12/14/2023 IBRANCE 100 mg capsuleIndications:[place] static breast cancer TAKE 1 CAPSULE DAILY FOR 21 DAYS OF A 28 DAY CYCLE 21 Cap 5 09/06/2017 02/07/2018 ibuprofen (MOTRIN) 200 mg tablet Take 200-400 mg by mouth as needed. 08/30/2018 letrozole (FEMARA) 2.5 mg tabletIndications:Perso nal history of malignant neoplasm of breast,Breast lump TAKE 1 TABLET DAILY 90 Tab 3 01/20/2017 01/15/2018 omeprazole (PRILOSEC) 20 mg capsule Take 1 [...] EDT Appointment [facility] Interventional Radiology Unit [address] [place] [address] [phone] 04/02/2024 15:15 EDT Office Visit [facility] Surgical Oncology - [address] 111601 Adolfo Carreno MD [address] [place] [address] [phone] 04/05/2024 9:30 EDT Telemedicine [facility] Palliative Care Services [address] [place] [address] [phone] Chichi Woods MD [address] [place] [address] [phone] 04/11/2024 15:00 EDT Telemedicine [facility] Hematology & Oncology - [address] [phone] Alisson Carreon MD [address] [place] [address] [phone] 04/13/2024 13:30 EDT Appointment [facility] Hematology & Oncology - [address] 167881 04/13/2024 14:00 EDT Appointment [facility] Hematology & Oncology [address] 014451 04/16/2024 10:00 EST Telemedicine [facility] Palliative Care Services [address] [place] [address] [phone] Chichi Woods MD [address] [place] [address] [phone] 04/24/2024 9:[address] [facility] Radiology CT Outpatient - [address] [address] 04/24/2024 11:00 EST Appointment [facility] Breast Imaging - [facility] [place] [address] [place] [address] 04/27/2024 12:00 EST Appointment [facility] Hematology & Oncology - [address] [address] 05/02/2024 15:00 EST Telemedicine [facility] Hematology & Oncology - [address] [phone] Alisson Carreon MD [address] [place] [address], Level 2 [place] [phone] 05/04/2024 10:15 EST Ancillary Procedure [facility] Cardiology - [address] [place] [address] 05/04/2024 11:30 EST Appointment [facility] Hematology & Oncology - [address] [address] 05/04/2024 12:00 EST Appointment [facility] Hematology & Oncology - [address] 987261 06/12/2024 13:[address] [facility] Radiology CT - [address] 963001 documented as of this encounter Visit Diagnoses Not on filedocumented in this encounter Care Teams Ichthyology Teacher Relationship Specialty Start Date End Date Linda Blancas MD [address] [place] [address] 30 [place] [address] PCP - General 01/06/11 documented as of this encounter
--- OUTSIDE RECORDS SUMMARY | 2024-03-20 15:05 | XMS_ITS | Encounter Summary ---
Author Organization [facility] Address [address] [place] [address] Care Team Providers Care Quarter Doper Name Role Phone Linda Blancas MD Primary Care Provider [phone] Reason for Visit * Reason Onset Date Comments Follow-up 01/20/2018 Encounter Details Date Type Department Care Team (Late st Contact Info) Description 01/20/2018 Telephone [facility] Hematology & Oncology - [facility] [address] [place] [address] Quita Rob RN Follow-up Social History Tobacco Use Types [...] Telephone Encounter - Quita Rob RN - 01/20/2018 0755 EDT Faxed labs to [facility] at [phone] for Ca27.29 to be done with next set of labs. documented in this encounter Plan of Treatment Upcoming Encounters Date Type Department Care Team (Late st Contact Info) Description 04/02/2024 10:30 EDT Appointment [facility] Interventional Radiology Unit [address] [place] [address] [phone] 04/02/2024 15:15 EDT Office Visit [facility] Surgical Oncology - [address] [phone] Adolfo Carreno MD [address] [place] [address] 2 [place] [phone] 04/05/2024 9:30 EDT Telemedicine [facility] - [facility] Palliative Care Services [address] [place] [address] [phone] Chichi Woods MD [address] [place] [address] [phone] 04/11/2024 15:[address] [facility] Hematology & Oncology - [address] [phone] Alisson Carreon MD [address] [place] [address] 2 [place] [phone] 04/13/2024 13:[address] [facility] Hematology & Oncology - [address] [phone] 04/13/2024 14:[address] [facility] Hematology & Oncology - [address] [phone] 04/16/2024 10:00 EST Telemedicine [facility] - [facility] Palliative Care Services [address] [place] [address] [phone] Chichi Woods MD [address] [place] [address], [address] [phone] 04/24/2024 9:00 EST Appointment [facility] Radiology CT Outpatient - [address] 547211 04/24/2024 11:00 EST Appointment [facility] Breast Imaging - [facility] S [address] 111181 04/27/2024 12:[address] [facility] Hematology & Oncology [address] 376011 05/02/2024 15:[address] [facility] Hematology & Oncology [address] 892131 Alisson Carreon MD [address] [place] [address], Level [address] [place] [phone] 05/04/2024 10:15 EST Ancillary Procedure [facility] Cardiology - [place] [address] 05/04/2024 11:[address] [facility] Hematology & Oncology [address] [phone] 05/04/2024 12:[address] Hematology & Oncology [address] [phone] 06/12/2024 13:00 EST Appointment [facility] Radiology CT - Main [address] [address] documented as of this encounter Visit Diagnoses Not on filedocumented in this encounter Care Teams Quarter Doper Relationship Specialty Start Date End Date Linda Blancas MD [facility] [address] [place] [address] PCP - General 01/06/11 documented as of this encounter
--- OUTSIDE RECORDS SUMMARY | 2024-03-20 15:05 | XMS_ITS | Encounter Summary ---
Author Organization [facility] Address [address] [place] [address] Care Team Providers Care Home Demonstration Agent Name Role Phone Linda Blancas MD Primary Care Provider [phone] Encounter Details Date Type Department Care Team (Late st Contact Info) Description 01/19/2018 7:18 EDT - 01/19/2018 23:59 EDT Hospital Encounter [facility] [place] [address] [place] [address] Linda Blancas MD [address] [place] [address] Quita Babb PA-C [address] [facility] 2 [place] [phone] Discharge Disposition: Auto Discharge Social History Tobacco [...] neoplasm of breast-Z85.3[ICD-10-CM] documented in this encounter Medications at Time [...] Cap 3 08/16/2012 12/14/2023 IBRANCE 100 mg capsuleIndications:[place] static breast cancer TAKE 1 CAPSULE DAILY [...] [facility] Interventional Radiology Unit [address] [place] [address] [phone] 04/02/2024 15:15 EDT Office Visit [facility] Surgical Oncology - [address] [phone] Adolfo Carreno MD [address] [place] [address] [phone] 04/05/2024 9:[address] [facility] - [facility] Palliative Care Services [address] [place] [address] [phone] Chichi Woods MD [address] [place] [address] [phone] 04/11/2024 15:00 EDT Telemedicine [facility] Hematology & Oncology [address] 100611 Alisson Carreon MD [address] [place] [address] [phone] 04/13/2024 13:30 EDT Appointment [facility] Hematology & Oncology [address] 032641 04/13/2024 14:00 EDT Appointment [facility] Hematology & Oncology [address] 848651 04/16/2024 10:[address] [facility] - [facility] Palliative Care Services [address] [place], [place] 561571 Chichi Woods MD [address] [place] [address], [address] [phone] 04/24/2024 9:00 EST Appointment [facility] Radiology CT Outpatient - [address] 344951 04/24/2024 11:00 EST Appointment [facility] Breast Imaging - [facility] [address] [place] [address] [place], [place] 641851 04/27/2024 12:00 EST Appointment [facility] Hematology & Oncology - [address] [phone] 05/02/2024 15:00 EST Telemedicine [facility] Hematology & Oncology - [address] [phone] Alisson Carreon MD [address] [place] [address], [facility], Level 2 [place] [phone] 05/04/2024 10:15 EST Ancillary Procedure [facility] Cardiology [place] [address] 05/04/2024 11:30 EST Appointment [facility] Hematology & Oncology - [address] 114191 05/04/2024 12:00 EST Appointment [facility] Hematology & Oncology [address] [phone] 06/12/2024 13:00 EST Appointment [facility] Radiology CT - [address] [phone] documented as of this encounter Visit Diagnoses Not on filedocumented in this encounter Care Teams Home Demonstration Agent Relationship Specialty Start Date End Date Linda Blancas MD [address] [place] [address] PCP - General 01/06/11 documented as of this encounter
--- OUTSIDE RECORDS SUMMARY | 2024-03-20 15:05 | XMS_ITS | Encounter Summary ---
Author Organization [facility] Address [address] [place] [address] Care Team Providers Care Rope Maker Name Role Phone Linda Blancas MD Primary Care Provider Reason for Visit * Reason Comments Tissue Brim Setter Fill TE fill Encounter Details Date Type Department Care Team (Latest Contact Info) Description 12/13/2017 10:20 EDT Office Visit [facility] Plastic, Reconstructive & Cosmetic Surgery - [address], [address] [place], [place] [phone] Deana Shaw, PA-C [address] [place] [phone] Surgical follow-up care (Primary Dx) Social [...] Progress Notes * Deana Shaw PA - 12/13/2017 1020 EDT Sunshine is here for fill of her right tissue executive staff assistant.?? She has been doing well since her last visit and denies fever, redness over executive staff assistant or pain at this time. She did have some soreness right after her last fill that resolved. On physical examination today the closure is in tact. There is no evidence of hematoma, seroma, infection, or drainage. All flaps are fully viable. Assesment/Plan: She is healing well. After verbal informed consent was obtained the port was located magnetically and marked.? A chloraprep was used for sterilization.?? Using standard sterile technique and a closed system the port was accessed and the executive staff assistant filled with 75 cc of injectable saline.?? The patient tolerated the procedure well.?? Access site was dressed with a spot bandaid to be removed tomorrow.?? Totals were recorded on the flow sheet.?? She now has a fill of 575 cc in a 535 cc tissue executive staff assistant.?? Signs and symptoms of infection were discussed. She is ready for executive staff assistant exchange for silicone implant, lift and exchange of implant on left, and possible removal of right reconstructed nipple. She will meet with guest associate today to start looking for a surgical time in about 3 months. Follow up for preop just prior to surgery. Dr Boss also saw patient and agreed with plan. TANK Ryan documented in this encounter Plan of Treatment Upcoming Encounters Date Type Department Care Team (Late st Contact Info) Description 04/02/2024 10:30 EDT Appointment [facility] Interventional Radiology Unit [address] [place] [address] 04/02/2024 15:15 EDT Office Visit [facility] Surgical Oncology - [address] [phone] Adolfo Carreno MD [address] [place] [address] 2 [place] [phone] 04/05/2024 9:30 EDT Telemedicine [facility] Palliative Care Services [address] [place] [address] [phone] Chichi Woods MD [address] [place] [address] [phone] 04/11/2024 15:00 EDT Telemedicine [facility] Hematology & Oncology - [address] [address] Alisson Carreon MD [address] [place] [address] [phone] 04/13/2024 13:30 EDT Appointment [facility] Hematology & Oncology - [address] 671951 04/13/2024 14:00 EDT Appointment [facility] Hematology & Oncology - [address] [address] 04/16/2024 10:00 EST Telemedicine [facility] Palliative Care Services [address] [place] [address] [phone] Chichi Woods MD [address] [place] [address] [phone] 04/24/2024 9:00 EST Appointment [facility] Radiology CT Outpatient - [address] 593011 04/24/2024 11:00 EST Appointment [facility] Breast Imaging - [facility] [place] 1 [place] [address] 04/27/2024 12:00 EST Appointment [facility] Hematology & Oncology - [address] [address] 05/02/2024 15:00 EST Telemedicine [facility] Hematology & Oncology - [address] [address] Alisson Carreon MD [address] [place] [address], Level 2 [place] [phone] 05/04/2024 10:15 EST Ancillary Procedure [facility] Cardiology - [address] [place] [address] 05/04/2024 11:30 EST Appointment [facility] Hematology & Oncology - [address] [address] 05/04/2024 12:00 EST Appointment [facility] Hematology & Oncology - [address] [address] 06/12/2024 13:00 EST Appointment [facility] Radiology CT - [address] [address] documented as of this encounter Visit Diagnoses Diagnosis Surgical follow-up care- Primary Follow-up examination, following unspecified surgery documented in this encounter Care Teams Rope Maker Relationship Specialty Start Date End Date Linda Blancas MD [facility] [address] [place] [address] PCP - General 01/06/11 documented as of this encounter
--- OUTSIDE RECORDS SUMMARY | 2024-03-20 15:05 | XMS_ITS | Encounter Summary ---
Author Organization [facility] Address [address] [place] [address] Care Team Providers Care Staff Toxicologist Name Role Phone Linda Blancas MD Primary Care Provider [phone] Reason for Visit * Reason Comments Other Encounter Details Date Type Department Care Team (Late st Contact Info) Description 02/07/2018 Refill [facility] Hematology & Oncology - [facility] [address] [place], [place] 222921 Augustina Colin MD PhD Other Social History [...] No 01/19/2018 documented as of this encounter Ordered Prescriptions Prescription Sig Dispensed Refills Start Date End Da te IBRANCE 100 mg capsuleIndications:[place] breast cancer TAKE 1 CAPSULE DAILY FOR 21 DAYS OF A 28 DAY CYCLE 21 Cap 5 02/07/2018 08/17/2018 documented in this encounter Miscellaneous Notes * Telephone Encounter - Susana Doherty RN - 02/07/2018 0916 EDT Refill for Ibrance sent to pharmacy per Dr. Colin' note-Continue palbociclib 100mg daily for 21 out of 28 days. documented in this encounter Plan of Treatment Upcoming Encounters Date Type Department Care Team (Late st Contact Info) Description 04/02/2024 10:30 EDT Appointment [facility] Interventional Radiology Unit [address] [place] [address] [phone] 04/02/2024 15:15 EDT Office Visit [facility] Surgical Oncology - [address] [phone] Adolfo Carreno MD [address] [place] [address] [phone] 04/05/2024 9:30 EDT Telemedicine [facility] - [facility] Palliative Care Services [address] [place] [address] [phone] Chichi Woods MD [address] [place] [address] [phone] 04/11/2024 15:00 EDT Telemedicine [facility] Hematology & Oncology - [address] [phone] Alisson Carreon MD [address] [place] [address] 2 [place] [phone] 04/13/2024 13:30 EDT Appointment [facility] Hematology & Oncology - [address] [phone] 04/13/2024 14:00 EDT Appointment [facility] Hematology & Oncology - [address] [address] 04/16/2024 10:00 EST Telemedicine [facility] - [facility] Palliative Care Services [address] [place] [address] [phone] Chichi Woods MD [address] [place] [address] [phone] 04/24/2024 9:00 EST Appointment [facility] Radiology CT Outpatient - [address] [address] 04/24/2024 11:00 EST Appointment [facility] Breast Imaging - [facility] [address] [place] [address] [place], [place] 107891 04/27/2024 12:00 EST Appointment [facility] Hematology & Oncology [address] 055761 05/02/2024 15:00 EST Telemedicine [facility] Hematology & Oncology - [address] [address] Alisson Carreon MD [address] [place] [address], Level 2 [place] [phone] 05/04/2024 10:15 EST Ancillary Procedure [facility] Cardiology - [place] [address] 05/04/2024 11:30 EST Appointment [facility] Hematology & Oncology - [address] [phone] 05/04/2024 12:00 EST Appointment [facility] Hematology & Oncology - [address] [address] 06/12/2024 13:00 EST [facility] Radiology CT - [address] [address] documented as of this encounter Visit Diagnoses Diagnosis Metastatic breast cancer- Primary documented in this encounter Discontinued Medications Medication Sig Discontinue Reason Start Date End Da te IBRANCE 100 mg capsuleIndications:Metas tatic breast cancer TAKE 1 CAPSULE DAILY FOR 21 DAYS OF A 28 DAY CYCLE Reorder 09/06/2017 02/07/2018 documented as of this encounter Care Teams Staff Toxicologist Relationship Specialty Start Date End Date Linda Blancas MD [facility] [address] [place] [address] PCP - General 01/06/11 documented as of this encounter
--- OUTSIDE RECORDS SUMMARY | 2024-03-20 15:05 | XMS_ITS | Encounter Summary ---
Author Organization [facility] Address [address] [place] [address] Care Team Providers Care Purchasing Manager Name Role Phone Linda Blancas MD Primary Care Provider [phone] Reason for Visit * Reason Comments Tissue Talent Scout Fill TE fill Encounter Details Date Type Department Care Team (Late st Contact Info) Description 10/12/2017 11:00 EDT Office Visit [facility] Plastic, Reconstructive & Cosmetic Surgery - [address], [address] [place], [place] [phone] Karen Singh PA-C [address] [place] [address] [address] [place] [phone] Surgical follow-up care (Primary Dx) [...] Progress Notes * Karen Singh PA - 10/12/2017 1100 EDT SUBJECTIVE: Ms. Pleitez presents for follow up and fill of her right tissue cafe associate.?? No acute complaints of illness reported today. [...] system the port was accessed and the cafe associate filled with 75 cc of injectable saline.?? The patient tolerated the procedure well.?? Access site was dressed with a spot Band-Aid to be removed tomorrow.?? Totals were recorded on the flow sheet.?? She now has a fill of 350 cc in a 535 cc tissue cafe associate.?? Signs and symptoms of infection were discussed. She will follow up in 2 weeks. TANK Dawn 10/12/2017 11:23 documented in this encounter Plan of Treatment Upcoming Encounters Date Type Department Care Team (Late st Contact Info) Description 04/02/2024 10:30 EDT Appointment [facility] Interventional Radiology Unit [address] [place] [address] [phone] 04/02/2024 15:15 EDT Office Visit [facility] Surgical Oncology - [facility] [address] [place], [place] [phone] Adolfo Carreno MD 111 [facility] Level 2 [place] [phone] 04/05/2024 9:30 EDT Telemedicine [facility] Palliative Care Services [address] [place] [address] 677421 Chichi Woods MD [address] [place] [address] [phone] 04/11/2024 15:00 EDT Telemedicine [facility] Hematology & Oncology - [address] [address] Alisson Carreon MD [address] [place] [address] Level [address] [place] [phone] 04/13/2024 13:30 EDT Appointment [facility] Hematology & Oncology - [address] [address] 04/13/2024 14:00 EDT Appointment [facility] Hematology & Oncology [address] [address] 04/16/2024 10:00 EST Telemedicine [facility] Palliative Care Services [address] [place] [address] [phone] Chichi Woods MD [address] [place] [address] [phone] 04/24/2024 9:00 EST Appointment [facility] Radiology CT Outpatient - [address] [phone] 04/24/2024 11:00 EST Appointment [facility] Breast Imaging - [address] 834951 04/27/2024 12:00 EST Appointment [facility] Hematology & Oncology - [address] [address] 05/02/2024 15:00 EST Telemedicine [facility] Hematology & Oncology [address] 287881 Alisson Carreon MD [address] [place] [address], Level [address] [place] [phone] 05/04/2024 10:15 EST Ancillary Procedure [facility] Cardiology - [address] [place] [address] 05/04/2024 11:30 EST Appointment [facility] Hematology & Oncology [address] 082191 05/04/2024 12:00 EST Appointment [facility] Hematology & Oncology [address] 500951 06/12/2024 13:00 EST Appointment [facility] Radiology CT - [address] 713161 documented as of this encounter Visit Diagnoses Diagnosis Surgical follow-up care- Primary Follow-up examination, following unspecified surgery documented in this encounter Care Teams Purchasing Manager Relationship Specialty Start Date End Date Linda Blancas MD [facility] [address] [place] [address] PCP - General 01/06/11 documented as of this encounter
--- OUTSIDE RECORDS SUMMARY | 2024-03-20 15:05 | XMS_ITS | Encounter Summary ---
Author Organization [facility] Address [address] [place] [address] Care Team Providers Care Application Security Developer Name Role Phone Linda Blancas MD Primary Care Provider [phone] Reason for Visit * Reason Onset Date Comments Post-OP Follow Up 11/15/2017 Encounter Details Date Type Department Care Team (Late st Contact Info) Description 11/15/2017 Telephone [facility] Plastic, Reconstructive & Cosmetic Surgery - [address], [address] [place], [place] [id number] Tylor Boss MD [address] [phone] Post-OP Follow Up Social History Tobacco Use [...] encounter Miscellaneous Notes * Telephone Encounter - Annalisa Diaz RN - 11/15/2017 1424 EDT D- Pt expressing pressure/ach feeling since last fill on 11/14/2017. Pt states skin not red or blanched. Deneis fevers has more pressure/ache since last fill A- Discussed volume and goals or Tissue expanders. Pt states took motrin with some improvement. Discussed with pt her need to monitor daily and if pain is improving she does not need to call back butif pain is getting worse or she is seeing redness or blanching of skin/develope fever she needs to call clinic uday. Pt also instructed she could take tylenol as well. R- Pt verbalized understanding. Patient Education Topic: goal of tissue expanders and what to expect; signs and symptoms of infection and when to contact clinic uday, Method: Verbal Taught to: Patient Barriers: None Outcomes: verbalized understanding Signature: MANISH RSOA * Telephone Encounter - Aurelia Tidwell - 11/15/2017 1356 EDT Sendy had a TE fill yesterday. She has some questions about it. It feels un- compfortable . The sensation feels odd to her. documented in this encounter Plan of Treatment Upcoming Encounters Date Type Department Care Team (Late st Contact Info) Description 04/02/2024 10:30 EDT Appointment [facility] Interventional Radiology Unit [address] [place] [phone] 04/02/2024 15:15 EDT Office Visit [facility] Surgical Oncology - [place] [address], [place] [phone] Adolfo Carreno MD [address] [place] [address], [facility] [address] [place] [phone] 04/05/2024 9:30 EDT Telemedicine [facility] Palliative Care Services [address] [place] [address] [phone] Chichi Woods MD [address] [place] [phone] 04/11/2024 15:00 EDT Telemedicine [facility] Hematology & Oncology - [address] [phone] Alisson Carreon MD [address] [place] [address], [facility] [address] [place] [phone] 04/13/2024 13:30 EDT Appointment [facility] Hematology & Oncology - [address] [phone] 04/13/2024 14:00 EDT Appointment [facility] Hematology & Oncology - [address] [phone] 04/16/2024 10:00 EST Telemedicine [facility] Palliative Care Services [address] [place] [phone] Chichi Woods MD [address] [place] [phone] 04/24/2024 9:00 EST Appointment [facility] Radiology CT Outpatient - [address] [phone] 04/24/2024 11:00 EST Appointment [facility] Breast Imaging - [address] [address] 04/27/2024 12:00 EST Appointment [facility] Hematology & Oncology [address] [address] 05/02/2024 15:00 EST Telemedicine [facility] Hematology & Oncology [address] [phone] Alisson Carreon MD [address] [place] [address], [address] [place] [phone] 05/04/2024 10:15 EST Ancillary Procedure [facility] Cardiology [place] [address] 05/04/2024 11:30 EST Appointment [facility] Hematology & Oncology [address] [address] 05/04/2024 12:00 EST Appointment [facility] Hematology & Oncology [address] [phone] 06/12/2024 13:00 EST Appointment [facility] Radiology CT - [address] [phone] documented as of this encounter Visit Diagnoses Not on filedocumented in this encounter Care Teams Application Security Developer Relationship Specialty Start Date End Date Linda Blancas MD [facility] [address] [place] [address] PCP - General 01/06/11 documented as of this encounter
--- OUTSIDE RECORDS SUMMARY | 2024-03-20 15:05 | XMS_ITS | Encounter Summary ---
Author Organization [facility] Address [address] [place] [address] Care Team Providers Care Air Traffic Supervisor Name Role Phone Linda Blancas MD Primary Care Provider [phone] Reason for Visit * Reason Comments Follow-up Encounter Details Date Type Department Care Team (Late st Contact Info) Description 10/12/2017 14:30 EDT Office Visit [facility] Hematology & Oncology - [facility] [address] [place] [address] Augustina Colin MD PhD Metastatic breast cancer (HCC-CMS) (Primary Dx) Discharge Disposition: Auto Discharge Social [...] Sign Reading Time Taken Comments Blood Pressure 142/70 10/12/2017 1438 EDT Pulse 89 10/12/2017 1438 EDT Temperature 36.1 ??C (97 ??F) 10/12/2017 1438 EDT Respiratory Rate - - Oxygen Saturation 99% 10/12/2017 1438 EDT Inhaled Oxygen Concentration - - Weight 67 kg (147 lb 11.2 oz) 10/12/2017 1438 ED T Height - - Body Mass Index 27.23 07/07/2017 1400 EST documented in this encounter Functional Status [...] Solitary pulmonary nodule-R91.1[ICD-10-CM] documented in this encounter Discharge Disposition Disposition Code Departure Means Destination Auto Discharge documented in this encounter Progress Notes * Augustina Colin MD - 10/12/2017 1430 EDT REASON FOR OFFICE VISIT Evaluation while continuing letrozole and palbociclib ?? PROBLEM LIST: 1. 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 a. ??Ultrasound performed in [place]??identifying an irregular heterogeneous soft tissue mass measuring [...] with dose reduction due to mouth sores. ?? f. 07/07/17 underwent excision of right breast tumor/revision and placement of tissue digester operator helper. 1.9 cm tumor at time of surgery, well differentiated, with LVI present, and negative margins. 2. Restaging scans: CT scan of the [...] disease. SUBJECTIVE: Ms Pleitez presents clinic today discuss side effects related to letrozole and palbociclib. She also had a CT scan completed today. She is relieved to hear that the areas of metastatic disease are improving. She is continuing to get digester operator helper fills at plastic surgery. She has mild hot flashes and they do not interfere with her function. She has something otherwise she feels that she is tolerating the palbociclib and letrozole well. She has continued to have some mild headaches mainly in the morning but then they improved throughout the day. ROS: A 10 point review of systems was obtained. Other than described in the subjective she notes a mild cough that she has had a recent viral infection, fatigue relieved with rest. The remaining review of systems was reviewed and is negative. Medications Prior to Today's [...] Glasses of wine per week presents to clinic with her today. Her mother is ill and she will be traveling to [place] tomorrow Objective: BP (!) 142/70 Pulse 89 Temp 36.1 ??C (97 ??F) (Tympanic) Wt 67 kg (147 lb 11.2 oz) SpO2 99% BMI 27.23 kg/m2 Estimated body mass index is 27.23 kg/(m^2) as calculated from the following: Height as of 07/07/17: 156.8 cm (61.75). Weight as of this encounter: 67 kg (147 lb 11.2 oz). ECOG Performance Status: 0 General: Comfortable, cooperative and in no apparent distress HEENT: Pupils are equal, round, reactive to light; Extraocular muscles are intact; Oromucosa is moist; no mucosal lesions are identified LYMPH: No cervical, supraclavicular lymphadenopathy LUNGS: Clear to auscultation bilaterally, resonant to percussion CARDIOVASCULAR: Regular, rate and rhythm; No murmurs, rubs or gallops ABDOMEN: Soft, non-tender, non distended, no hepatosplenomegaly appreciated. EXTREMITIES: No clubbing, cyansis or edema; No calf tenderness NEURO: Alert and oriented x 3; Grossly neurologically intact DIAGNOSTIC DATA Telephone on 10/12/2017 Component Date Value Ref Range Status ??? Glucose, Serum, External 10/10/2017 81 74 - 106 Final ??? Albumin, External 10/10/2017 3.7 3.4 - 5.0 Final ??? Total Alkaline Phosphatase, Therapeutic Support Staff* 10/10/2017 80 48 - 129 Final ??? ALT, External 10/10/2017 21 13 - 61 Final ??? AST, External 10/10/2017 17 15 - 37 Final ??? BUN, External 10/10/2017 17 7 - 18 Final ??? Calcium, External 10/10/2017 9.0 8.5 - 10.1 Final ??? Chloride, External 10/10/2017 107 98 - 107 Final ??? CO2, External 10/10/2017 29 21 - 32 Final ??? Creatinine, External 10/10/2017 0.9 0.6 - 1.3 Final ??? Potassium, External 10/10/2017 4.3 3.5 - 5.1 Final ??? Sodium, External 10/10/2017 144 136 - 145 Final ??? Total Protein, External 10/10/2017 7.1 6.4 - 8.2 Final ??? Bilirubin, Total, External 10/10/2017 0.34 0.20 - 1.00 Final ??? WBC, External 10/10/2017 3.1 Final ??? RBC, External 10/10/2017 3.29 Final ??? Hemoglobin, External 10/10/2017 11.9 Final ??? HCT, External 10/10/2017 35.6 Final ??? MCV, External 10/10/2017 108 Final ??? MCH, External 10/10/2017 36.2 Final ??? MCHC, External 10/10/2017 33.4 Final ??? PLT, External 10/10/2017 216 Final ??? RDW-CV, External 10/10/2017 14.6 Final ??? Neutrophils, External 10/10/2017 52.3 Final ??? Lymphocytes, External 10/10/2017 39.2 Final ??? Monocytes, External 10/10/2017 7.0 Final ??? Eosinophils, External 10/10/2017 0.6 Final ??? Basophils, External 10/10/2017 0.6 Final ??? ABS Neutrophils, External 10/10/2017 1.64 Final ??? ABS Lymphs, External 10/10/2017 1.23 Final ??? ABS Monocytes, External 10/10/2017 0.22 Final ??? ABS Eosinophils, External 10/10/2017 0.02 Final ??? ABS Basophils, External 10/10/2017 0.02 Final ??? Glucose, Serum, External 10/04/2017 82 Final ??? Albumin, External 10/04/2017 3.7 Final ??? Total Alkaline Phosphatase, Therapeutic Support Staff* 10/04/2017 79 Final ??? ALT, External 10/04/2017 20 Final ??? AST, External 10/04/2017 21 Final ??? BUN, External 10/04/2017 26 Final ??? Calcium, External 10/04/2017 9.1 Final ??? Chloride, External 10/04/2017 107 Final ??? CO2, External 10/04/2017 29 Final ??? Creatinine, External 10/04/2017 0.8 Final ??? Potassium, External 10/04/2017 4.2 Final ??? Sodium, External 10/04/2017 143 Final ??? Total Protein, External 10/04/2017 7.2 Final ??? Bilirubin, Total, External 10/04/2017 0.32 Final ??? Glucose, Serum, External 09/27/2017 87 Final ??? Albumin, External 09/27/2017 3.6 Final ??? Total Alkaline Phosphatase, Therapeutic Support Staff* 09/27/2017 89 Final ??? ALT, External 09/27/2017 19 Final ??? AST, External 09/27/2017 16 Final ??? BUN, External 09/27/2017 18 Final ??? Calcium, External 09/27/2017 8.8 Final ??? Chloride, External 09/27/2017 108 Final ??? CO2, External 09/27/2017 26 Final ??? Creatinine, External 09/27/2017 0.8 Final ??? Potassium, External 09/27/2017 4.0 Final ??? Sodium, External 09/27/2017 143 Final ??? Total Protein, External 09/27/2017 7.4 Final ??? Bilirubin, Total, External 09/27/2017 0.32 Final ??? Glucose, Serum, External 09/19/2017 83 Final ??? Albumin, External 09/19/2017 3.7 Final ??? Total Alkaline Phosphatase, Therapeutic Support Staff* 09/19/2017 82 Final ??? ALT, External 09/19/2017 22 Final ??? AST, External 09/19/2017 20 Final ??? BUN, External 09/19/2017 15 Final ??? Calcium, External 09/19/2017 8.7 Final ??? Chloride, External 09/19/2017 108 Final ??? CO2, External 09/19/2017 27 Final ??? Creatinine, External 09/19/2017 0.7 Final ??? Potassium, External 09/19/2017 4.4 Final ??? Sodium, External 09/19/2017 143 Final ??? Total Protein, External 09/19/2017 7.2 Final ??? Bilirubin, Total, External 09/19/2017 0.22 Final ??? WBC, External 10/04/2017 4.2 Final ??? RBC, External 10/04/2017 3.38 Final ??? Hemoglobin, External 10/04/2017 12.2 Final ??? HCT, External 10/04/2017 36.2 Final ??? MCV, External 10/04/2017 107 Final ??? MCH, External 10/04/2017 36.1 Final ??? MCHC, External 10/04/2017 33.7 Final ??? PLT, External 10/04/2017 304 Final ??? RDW-CV, External 10/04/2017 14.2 Final ??? Neutrophils, External 10/04/2017 45.3 Final ??? Lymphocytes, External 10/04/2017 45.8 Final ??? Monocytes, External 10/04/2017 6.7 Final ??? Eosinophils, External 10/04/2017 1.0 Final ??? Basophils, External 10/04/2017 1.2 Final ??? ABS Neutrophils, External 10/04/2017 1.91 Final ??? ABS Lymphs, External 10/04/2017 1.93 Final ??? ABS Monocytes, External 10/04/2017 0.28 Final ??? ABS Eosinophils, External 10/04/2017 0.04 Final ??? ABS Basophils, External 10/04/2017 0.05 Final ??? WBC, External 09/27/2017 6.3 Final ??? RBC, External 09/27/2017 3.53 Final ??? Hemoglobin, External 09/27/2017 12.7 Final ??? HCT, External 09/27/2017 37.6 Final ??? MCV, External 09/27/2017 107 Final ??? MCH, External 09/27/2017 36.0 Final ??? MCHC, External 09/27/2017 33.8 Final ??? PLT, External 09/27/2017 346 Final ??? RDW-CV, External 09/27/2017 14.7 Final ??? Neutrophils, External 09/27/2017 71.9 Final ??? Lymphocytes, External 09/27/2017 23.1 Final ??? Monocytes, External 09/27/2017 3.6 Final ??? Eosinophils, External 09/27/2017 0.2 Final ??? Basophils, External 09/27/2017 0.9 Final ??? ABS Neutrophils, External 09/27/2017 4.55 Final ??? ABS Lymphs, External 09/27/2017 1.46 Final ??? ABS Monocytes, External 09/27/2017 0.23 Final ??? ABS Eosinophils, External 09/27/2017 0.01 Final ??? ABS Basophils, External 09/27/2017 0.06 Final ASSESSMENT: ??Ms Bernstein is a 57-year-old female with metastatic breast cancer with metastatic disease in the mediastinal lymph node. ??Metastatic disease was identified in the setting of a biopsy-proven skin recurrence. She has been on letrozole and palbociclib for about one year. She currently receives palbociclib 100 mg daily for 3 weeks out of 4. the doses reduced because of mouth sores. From a hematologic standpoint she has tolerated palbociclib well. CT scan of the chest from today indicates improvement in all areas of metastatic disease. We would plan to repeat another CT scan in4-6 months. ? PLAN: 1. Continue letrozole 2.5 mg daily and palbociclib 100mg daily for 21 out of 28 days. ??Palbociclibwill be started next Mon. 2. Check CBC and differential monthly prior to her initiating the palbociclib 3. Consider repeat staging CT scans in 4-6 months 4. ??Follow-up return in two??months ? Patient is encouraged call with any intercurrent concerns or problems. ?? Augustina Colin MD 10/12/2017 14:46 documented in this encounter Plan of Treatment Upcoming Encounters Date Type Department Care Team (Late st Contact Info) Description 04/02/2024 10:30 EDT Appointment [facility] Interventional Radiology Unit [address] [place] [address] [phone] 04/02/2024 15:15 EDT Office Visit [facility] Surgical Oncology - [address] [phone] Adolfo Carreno MD [address] [place] [phone] 04/05/2024 9:30 EDT Telemedicine [facility] - [facility] Palliative Care Services [address] [place] [address] [phone] Chichi Woods MD [address] [place] [phone] 04/11/2024 15:00 EDT Telemedicine [facility] Hematology & Oncology - [address] [phone] Alisson Carreon MD [address] [place] [address] [address] [place] [phone] 04/13/2024 13:30 EDT Appointment [facility] Hematology & Oncology - [address] [phone] 04/13/2024 14:00 EDT Appointment [facility] Hematology & Oncology - [address] [phone] 04/16/2024 10:00 EST Telemedicine [facility] - [facility] Palliative Care Services [address] [place] [address] [phone] Chichi Woods MD [address] [place] [address], [address] [phone] 04/24/2024 9:00 EST Appointment [facility] Radiology CT Outpatient - [address] [phone] 04/24/2024 11:00 EST Appointment [facility] Breast Imaging - [facility] [address] [phone] 04/27/2024 12:00 EST Appointment [facility] Hematology & Oncology [address] [phone] 05/02/2024 15:00 EST Telemedicine [facility] Hematology & Oncology - [address] [address] Alisson Carreon MD [address] [place] [address], [address] [place] [phone] 05/04/2024 10:15 EST Ancillary Procedure [facility] Cardiology - [place] [address] 05/04/2024 11:30 EST Appointment [facility] Hematology & Oncology - [address] [address] 05/04/2024 12:00 EST Appointment [facility] Hematology & Oncology - [address] [phone] 06/12/2024 13:00 EST Appointment [facility] Radiology CT - [address] [address] documented as of this encounter Visit Diagnoses Diagnosis Metastatic breast cancer- Primary documented in this encounter Care Teams Air Traffic Supervisor Relationship Specialty Start Date End Date Linda Blancas MD [facility] [address] [place] [address] PCP - General 01/06/11 documented as of this encounter
--- OUTSIDE RECORDS SUMMARY | 2024-03-20 15:05 | XMS_ITS | Encounter Summary ---
Author Organization [facility] Address [address] [place] [address] Care Team Providers Care Outdoor Adventure Instructor Name Role Phone Linda Blancas MD Primary Care Provider [phone] Reason for Referral * Radiology Services (Routine) - New Request Specialty Diagnoses / Procedures Referred By Contac t Referred To Contact Diagnoses Low back pain, unspecified back pain laterality, unspecified chronicity, with sciatica presence unspecified Procedures L SPINE 4 OR MORE VIEWS Karen Holley PA-C [address] [place] [phone] Referral ID Status Reason Start Date Expiration Date V isits Requested Visits Authorized [id number] New Request 02/23/2018 1 1 Encounter Details Date Type Department Care Team (Late st Contact Info) Description 02/22/2018 Orders Only [facility] Spine Program - [address] [place] [address] Karen Holley PA-C [address] [place] [phone] Low back pain, unspecified back pain laterality, unspecified chronicity, with sciatica presence unspecified (Primary Dx) Social History Tobacco Use Types [...] No 01/19/2018 documented as of this encounter Plan of Treatment Upcoming Encounters Date Type Department Care Team (Late st Contact Info) Description 04/02/2024 10:30 EDT Appointment [facility] Interventional Radiology Unit [address] [place] [address] 04/02/2024 15:15 EDT Office Visit [facility] Surgical Oncology - [address] [phone] Adolfo Carreno MD 111 [facility], Level 2 [place] [phone] 04/05/2024 9:[address] [facility] - [facility] Palliative Care Services [address] [place] [address] [phone] Chichi Woods MD 111 [facility], [address] [phone] 04/11/2024 15:00 EDT Telemedicine [facility] Hematology & Oncology - [address] [phone] Alisson Carreon MD [address] [place] [address] 2 [place] [phone] 04/13/2024 13:[address] [facility] Hematology & Oncology - [address] 930551 04/13/2024 14:[address] [facility] Hematology & Oncology - [address] [phone] 04/16/2024 10:[address] [facility] - [facility] Palliative Care Services [address] [place] [address] [phone] Chichi Woods MD [address] [place] [phone] 04/24/2024 9:00 EST Appointment [facility] Radiology CT Outpatient - [address] [id number] 04/24/2024 11:00 EST Appointment [facility] Breast Imaging - [facility] S [address] [id number] 04/27/2024 12:[address] [facility] Hematology & Oncology - [address] [phone] 05/02/2024 15:[address] [facility] Hematology & Oncology - [address] [phone] Alisson Carreon MD [address] [place] [address], [facility] 2 [place] [phone] 05/04/2024 10:15 EST Ancillary Procedure [facility] Cardiology - [place] [address] 05/04/2024 11:[address] [facility] Hematology & Oncology [address] [address] 05/04/2024 12:[address] [facility] Hematology & Oncology [address] [address] 06/12/2024 13:00 EST Appointment [facility] Radiology CT - [address] [address] documented as of this encounter Procedures Procedure Name Priority Date/Time Associated Diagnosis Comments L SPINE 4 OR MORE VIEWS Routine 03/09/2018 14:09 EDT Low back pain, unspecified back pain laterality, unspecified chronicity, with sciatica presence unspecified documented in this encounter Results * L SPINE 4 OR MORE VIEWS (03/09/2018 14:09 EDT) Anatomical Region Laterality Modality Other 03/09/2018 14:0 9 EDT 03/13/2018 18:08 EDT Narrative 03/13/2018 18:08 EDT L SPINE 4 OR MORE VIEWS ??03/09/2018 2:09 PM Clinical History/Comments: M54.5-Low back pain-ICD-10; Low back pain. Technique: 4 views of the lumbar spine Comparison: The lumbar spine radiographs November 24, 2012. Findings: Posterior fusion of the spine between L3 and S1. No change in the appearance of the hardware. No evidence of hardware complication. There has been L4 and L5 laminectomy. There is approximately 5 mm of retrolisthesis of L1 on L2 which has increased compared to the study from 2012. In flexion, the retrolisthesis improves to near normal alignment. In extension, the retrolisthesis is unchanged. Mild anterolisthesis at L2-3 is unchanged. Degenerative disc height loss at L1-2 is much worse compared to 2013. The remaining discs are unchanged in appearance. Surgical clips project over the prevertebral soft tissues. Calcifications of the pelvis are likely fibroids. Procedure Note Amrik Carrillo MD - 03/13/2018 L SPINE 4 OR MORE VIEWS 03/09/2018 2:09 PM Clinical History/Comments: M54.5-Low back pain-ICD-10; Low back pain. Technique: 4 views of the lumbar spine Comparison: The lumbar spine radiographs November 24, 2012. Findings: Posterior fusion of the spine between L3 and S1. No change in the appearance of the hardware. No evidence of hardware complication. There has been L4 and L5 laminectomy. There is approximately 5 mm of retrolisthesis of L1 on L2 which has increased compared to the study from 2012. In flexion, the retrolisthesis improves to near normal alignment. In extension, the retrolisthesis is unchanged. Mild anterolisthesis at L2-3 is unchanged. Degenerative disc height loss at L1-2 is much worse compared to 2013. The remaining discs are unchanged in appearance. Surgical clips project over the prevertebral soft tissues. Calcifications of the pelvis are likely fibroids. Karen Holley PA-C [facility]AGING ORDERABLES documented in this encounter Visit Diagnoses Diagnosis Low back pain, unspecified back pain laterality, unspecified chronicity, with sciatica presence unspecified- Primary documented in this encounter Care Teams Outdoor Adventure Instructor Relationship Specialty Start Date End Date Linda Blancas MD [address] [place] [address] [address] [place] [address] PCP - General 01/06/11 documented as of this encounter
--- OUTSIDE RECORDS SUMMARY | 2024-03-20 15:05 | XMS_ITS | Encounter Summary ---
Author Organization [facility] Address [address] [place] [address] Care Team Providers Care Loading Machine Operator Helper Name Role Phone Linda Blancas MD Primary Care Provider Reason for Visit * Reason Comments Tissue Security Police Fill TE fill Encounter Details Date Type Department Care Team (Latest Contact Info) Description 11/14/2017 10:40 EDT Office Visit [facility] Plastic, Reconstructive & Cosmetic Surgery - [address], [address] [place], [place] [phone] Deana Shaw, PA-C [address] [place] [phone] Surgical follow-up care (Primary Dx) Social [...] Progress Notes * Deana Shaw PA - 11/14/2017 1040 EDT Sunshine is here for fill of her right tissue linux server administrator.?? She has been doing well since her last visit and denies fever, redness over linux server administrator or pain. On physical examination today the [...] system the port was accessed and the linux server administrator filled with 75 cc of injectable saline.?? The patient tolerated the procedure well.?? Access site was dressed with a spot bandaid to be removed tomorrow.?? Totals were recorded on the flow sheet.?? She now has a fill of 500 cc in a 535 cc tissue linux server administrator.?? Signs and symptoms of infection were discussed. She will follow up in 2-3 weeks. TANK Ryan documented in this encounter Plan of Treatment Upcoming Encounters Date Type Department Care Team (Late st Contact Info) Description 04/02/2024 10:30 EDT Appointment [facility] Interventional Radiology Unit [address] [place] [address] 04/02/2024 15:15 EDT Office Visit [facility] Surgical Oncology - [facility] [address] [place], [place] [phone] Adolfo Carreno MD 111 [facility], Level 2 [place] [phone] 04/05/2024 9:30 EDT Telemedicine [facility] - [facility] Palliative Care Services [address] [place] [address] [phone] Chichi Woods MD [address] [place] [phone] 04/11/2024 15:00 EDT Telemedicine [facility] Hematology & Oncology - [address] [phone] Alisson Carreon MD [address] [place] [address] Level [address] [place] [phone] 04/13/2024 13:30 EDT Appointment [facility] Hematology & Oncology - [address] [phone] 04/13/2024 14:00 EDT Appointment [facility] Hematology & Oncology [address] [phone] 04/16/2024 10:00 EST Telemedicine [facility] Palliative Care Services [address] [place] [address] 381021 Chichi Woods MD [address] [place] [phone] 04/24/2024 9:00 EST Appointment [facility] Radiology CT Outpatient - [address] [id number] 04/24/2024 11:00 EST Appointment [facility] Breast Imaging - [facility] S [address] [address] 04/27/2024 12:00 EST Appointment [facility] Hematology & Oncology - [address] 195021 05/02/2024 15:00 EST Telemedicine [facility] Hematology & Oncology [address] [phone] Alisson Carreon MD [address] [place] [address], Level [address] [place] [phone] 05/04/2024 10:15 EST Ancillary Procedure [facility] Cardiology - [address] [place] [address] 05/04/2024 11:30 EST Appointment [facility] Hematology & Oncology [address] [phone] 05/04/2024 12:00 EST Appointment [facility] Hematology & Oncology [address] 056321 06/12/2024 13:00 EST Appointment [facility] Radiology CT - [address] 727441 documented as of this encounter Visit Diagnoses Diagnosis Surgical follow-up care- Primary Follow-up examination, following unspecified surgery documented in this encounter Care Teams Loading Machine Operator Helper Relationship Specialty Start Date End Date Linda Blancas MD [address] [place] [address] 30 [place] [address] PCP - General 01/06/11 documented as of this encounter
--- OUTSIDE RECORDS SUMMARY | 2024-03-20 15:05 | XMS_ITS | Encounter Summary ---
Author Organization [facility] Address [address] [place] [address] Care Team Providers Care Ballistics Tester Name Role Phone Linda Blancas MD Primary Care Provider [phone] Reason for Referral * Surgery (Routine) - Closed Specialty Diagnoses / Procedures Referred By Contac t Referred To Contact Plastic Surgery Diagnoses S/P breast reconstruction, right Metastatic breast cancer Procedures [place] DELAY BREAST PROS AFTER BREAST SURG [place] REVISE BREAST RECONSTRUCTION Tylor Boss MD FACS [address] [place] [address] [place] [phone] Tylor Boss MD [address] [place] [phone] Referral ID Status Reason Start Date Expiration Date V isits Requested Visits Authorized [id number] Closed Specialty Services Required 12/25/2017 1 1 Question Answer Reason for Request: right TE to gel Scheduled Surgery Date: 12/25/2017 Laterality: Right Location of Procedure: [facility]/ Outpt Anesthesia: General Estimated Length of Procedure: 2h CPT Code: 15668 Encounter Details Date Type Department Care Team (Late st Contact Info) Description 12/25/[address] Orders [address] [facility] Plastic, Reconstructive & Cosmetic Surgery - [address], [address] [place] [address] Tylor Boss MD FACS [address] [place] [address] [place] [phone] Metastatic breast cancer (HCC-CMS) (Primary Dx); S/P breast reconstruction, right Social History Tobacco Use Types Packs/Day Years [...] No 07/15/2017 documented as of this encounter Plan of Treatment Upcoming Encounters Date Type Department Care Team (Late st Contact Info) Description 04/02/2024 10:30 EDT Appointment [facility] Interventional Radiology Unit [address] [place] [address] 04/02/2024 15:15 EDT Office Visit [facility] Surgical Oncology - [facility] [address] [place] [address] Adolfo Carreno MD 111 [facility], Level 2 [place] [phone] 04/05/2024 9:30 EDT Telemedicine [facility] Palliative Care Services [address] [place], [place] 394801 Chichi Woods MD [address] [place] [address] 262 [place] [phone] 04/11/2024 15:00 EDT Telemedicine [facility] Hematology & Oncology - [address] [phone] Alisson Carreon MD [address] [place] [address], Level 2 [place] [phone] 04/13/2024 13:30 EDT Appointment [facility] Hematology & Oncology [address] [phone] 04/13/2024 14:00 EDT Appointment [facility] Hematology & Oncology [address] [address] 04/16/2024 10:00 EST Telemedicine [facility] - [facility] Palliative Care Services [address] [place] [address] [phone] Chichi Woods MD [address] [place] [phone] 04/24/2024 9:00 EST Appointment [facility] Radiology CT Outpatient - [address] 138221 04/24/2024 11:00 EST Appointment [facility] Breast Imaging - [address] [phone] 04/27/2024 12:00 EST Appointment [facility] Hematology & Oncology [address] [phone] 05/02/2024 15:00 EST Telemedicine [facility] Hematology & Oncology - [address] [phone] Alisson Carreon MD 111 [facility], Level 2 [place] [phone] 05/04/2024 10:15 EST Ancillary Procedure [facility] Cardiology - [address] [place] [address] 05/04/2024 11:30 EST Appointment [facility] Hematology & Oncology - [address] 968451 05/04/2024 12:00 EST Appointment [facility] Hematology & Oncology [address] [phone] 06/12/2024 13:00 EST Appointment [facility] Radiology CT - [facility] [address] [place], [place] 9317[address] Scheduled Referrals Name Type Priority Associated Diagnoses Orde r Schedule AMB CONS/FOLLOW UP SURGERY SCHED ORD Outpatient Referral Routine S/P breast reconstruction, right Metastatic breast cancer (CMS-HCC) (H[facility]) Ordered: 12/25/2017 documented as of this encounter Visit Diagnoses Diagnosis Metastatic breast cancer- Primary S/P breast reconstruction, right Breast replaced by other means documented in this encounter Care Teams Ballistics Tester Relationship Specialty Start Date End Date Linda Blancas MD [facility] [address] [place] [address] PCP - General 01/06/11 documented as of this encounter
--- OUTSIDE RECORDS SUMMARY | 2024-03-20 15:05 | XMS_ITS | Encounter Summary ---
Author Organization [facility] Address [address] [place] [address] Care Team Providers Care Charge Account Identification Clerk Name Role Phone Linda Blancas MD Primary Care Provider [phone] Reason for Visit * Reason Comments Follow-up Encounter Details Date Type Department Care Team (Late st Contact Info) Description 01/19/2018 12:45 EDT Office Visit [facility] Surgical Oncology - [address] [address] Adolfo Carreno MD [address] [place] [address], Level 2 [place] [phone] Routine cancer follow-up visit (Primary [...] Progress Notes * Adolfo Carreno MD - 01/19/2018 1245 EDT This office note has been dictated. * Adolfo Carreno MD - 01/19/2018 0000 EDT [facility] BREAST CANCER PROGRAM PROGRESS / FOLLOWUP NOTE - 01/19/2018 PROBLEM: The patient is seen in followup for a history of breast cancer. SUBJECTIVE: The patient is a 57-year-old woman who had breast cancer of the right breast back in 2003. She had ductal carcinoma in situ, underwent a total mastectomy at that time with reconstruction.She had a focally positive anterior margin. She opted not to do any additional treatments. The patient developed a recurrence of invasive cancer in that vicinity and underwent metastatic workup and that showed evidence of metastatic disease to the lungs and mediastinal lymph nodes. The patient was treated with letrozole and palbociclib and had a good response with shrinkage of the disease. She still had the primary tumor site in the breast area on the right. She underwent excision of that on with the removal of her other implant. She has had a subsequent placement of a new lan engineer. The patient continues on the letrozole and palbociclib and has had good responses thus far. The patient is feeling very good, has a little bit of fatigue from the medications, but otherwise no proble ms. OBJECTIVE: On exam today, the patient is in no acute distress. She has no scleral icterus. There are no palpable neck masses, no cervical or supraclavicular lymph nodes are palpable. There are no nodules in the thyroid gland, no carotid bruits or JVD are noted. Lungs are clear to auscultation. Heart has a regular rate and rhythm without S3, S4, or murmurs. Breast exam reveals the mastectomy on the right with the lan engineer implant. The patient has an augmentation implant on the left. Palpation ofthe right mastectomy site reveals no palpable abnormalities suspicious for recurrent disease. Thereare no palpable lymph nodes in the axilla. The left breast has no discrete palpable abnormalities. There was no nipple discharge and no palpable lymph nodes are noted in the axilla. There are no abdominal masses, no abdominal tenderness, no hepato or splenomegaly was noted. DIAGNOSTIC DATA: Ultrasound of the mastectomy site on the right side demonstrates the lan engineer in good position, no evidence of recurrent disease is seen in the wide excision area or elsewhere in themastectomy site. There were no abnormal lymph nodes seen in the internal mammary or axillary region. Left breast was examined. This demonstrates normal-appearing breast glandular tissue with the implant beneath. There is no evidence of any architectural changes, solid or cystic abnormalities. Thereare no abnormal lymph nodes seen in the internal mammary or axillary region. The patient had a mammogram of the left breast earlier in the day, which showed no suspicious abnormalities. ASSESSMENT: The patient is doing well. She seems to be responding well with the endocrine therapy with palbociclib. At this point, we will plan on having her return for followup again in 6 months. She is scheduled to have the final implant done in March. Adolfo Carreno MD 03 49 PM - Adolfo Carreno MD en Dictation ID: [id number] cc: Linda Blancas MD, [place] [id number] Augustina Colin MD, [facility] - Hematology Oncology [address] [place] [address] Tylor Boss MD, [facility] - Plastic Surgery [address] [facility], [address], [place] [address] documented in this encounter Plan of Treatment Upcoming Encounters Date Type Department Care Team (Late st Contact Info) Description 04/02/2024 10:30 EDT Appointment [facility] Interventional Radiology Unit [address] [place] [address] 04/02/2024 15:15 EDT Office Visit [facility] Surgical Oncology - [address] [phone] Adolfo Carreno MD [address] [place] [phone] 04/05/2024 9:30 EDT Telemedicine [facility] Palliative Care Services [address] [place] [address] [phone] Chichi Woods MD [address] [place] [phone] 04/11/2024 15:00 EDT Telemedicine [facility] Hematology & Oncology - [address] 513051 Alisson Carreon MD [address] [place] [address] [phone] 04/13/2024 13:30 EDT Appointment [facility] Hematology & Oncology [address] [phone] 04/13/2024 14:00 EDT Appointment [facility] Hematology & Oncology [address] [address] 04/16/2024 10:00 EST Telemedicine [facility] Palliative Care Services [address] [place] [address] [phone] Chichi Woods MD [address] [place] [phone] 04/24/2024 9:[address] [facility] Radiology CT Outpatient - [address] [id number] 04/24/2024 11:00 EST Appointment [facility] Breast Imaging - [facility] S [place] 1 [place] [address] 04/27/2024 12:00 EST Appointment [facility] Hematology & Oncology - [address] [address] 05/02/2024 15:00 EST Telemedicine [facility] Hematology & Oncology [address] 165431 Alisson Carreon MD [address] [place] [address], Level [address] [place] [phone] 05/04/2024 10:15 EST Ancillary Procedure [facility] Cardiology - [address] [place] [address] 05/04/2024 11:30 EST Appointment [facility] Hematology & Oncology [address] [address] 05/04/2024 12:00 EST Appointment [facility] Hematology & Oncology [address] 874451 06/12/2024 13:[address] [facility] Radiology CT - [address] [phone] documented as of this encounter Visit Diagnoses Diagnosis Routine cancer follow-up visit- Primary Other follow-up examination Personal history of breast cancer Personal history of malignant neoplasm of breast documented in this encounter Care Teams Charge Account Identification Clerk Relationship Specialty Start Date End Date Linda Blancas MD [facility] [address] [place] [address] PCP - General 01/06/11 documented as of this encounter
--- OUTSIDE RECORDS SUMMARY | 2024-03-20 15:05 | XMS_ITS | Encounter Summary ---
Author Organization [facility] Address [address] [place] [address] Care Team Providers Care Local Superintendent Name Role Phone Linda Blancas MD Primary Care Provider [phone] Adolfo Carreno MD Unavailable [phone] Augustina Colin MD PhD Unavailable Unavailable Reason for Visit * Reason Onset Date Comments Results 02/01/2018 Encounter Details Date Type Department Care Team (Late st Contact Info) Description 02/01/2018 Telephone [facility] Hematology & Oncology - [facility] [place] [address] [place], [place] [address] Augustina Colin, PhD Results Social History Tobacco [...] No 01/19/2018 Cognitive Status Response Date of Assess ent Because of a physical, menta l, or emotional condition, does this person have serious difficulty concentrating, remembering, or making decisions? No 01/19/2018 documented as of this encounter Miscellaneous Notes * Telephone Encounter - Ermelinda Morrell - 02/01/2018 1601 EDT Entered labs from 01/30/18 [facility]. documented in this encounter Plan of Treatment Upcoming Encounters Date Type Department Care Team (Late st Contact Info) Description 04/02/2024 10:30 EDT Appointment [facility] Interventional Radiology Unit [address] [place] [address] [phone] 04/02/2024 15:15 EDT Office Visit [facility] Surgical Oncology - [address] [phone] Adolfo Carreno MD [address] [place] [address] [phone] 04/05/2024 9:30 EDT Telemedicine [facility] - [facility] Palliative Care Services [address] [place] [address] 835001 Chichi Woosd MD [address] [place] [address] [phone] 04/11/2024 15:00 EDT Telemedicine [facility] Hematology & Oncology [address] [phone] Alisson Carreon MD [address] [place] [address] [phone] 04/13/2024 13:30 EDT Appointment [facility] Hematology & Oncology [address] 088401 04/13/2024 14:00 EDT Appointment [facility] Hematology & Oncology - [address] [address] 04/16/2024 10:00 EST Telemedicine [facility] - [facility] Palliative Care Services [address] [place] [address] 8[address] Chichi Woods MD [address] [place] [address], [address] [phone] 04/24/2024 9:00 EST Appointment [facility] Radiology CT Outpatient - [address] [address] 04/24/2024 11:00 EST Appointment [facility] Breast Imaging - [facility] 1 [place], [place] 416861 04/27/2024 12:00 EST Appointment [facility] Hematology & Oncology - [address] [phone] 05/02/2024 15:00 EST Telemedicine [facility] Hematology & Oncology [address] [phone] Alisson Carreon MD [address] [place] [address], [facility], Level 2 [place] [phone] 05/04/2024 10:15 EST Ancillary Procedure [facility] Cardiology - [place] [address] 05/04/2024 11:30 EST Appointment [facility] Hematology & Oncology - [address] [address] 05/04/2024 12:00 EST Appointment [facility] Hematology & Oncology - [address] [phone] 06/12/2024 13:00 EST [facility] Rad[facility] - [address] [address] documented as of this encounter Procedures Procedure Name Priority Date/Time Associated Diagnosis Comments COMPLETE BLOOD COUNT AND DIFFERENTIAL Routine 01/30/2018 COMPREHENSIVE METABOLIC PANEL (CMP) Routine 01/30/2018 documented in this encounter Results * (ABNORMAL) COMPLETE BLOOD COUNT AND DIFFERENTIAL (01/30/2018) WBC, External 3.3(A) 4.5 - 11.0 [facility] RBC, External 3.23(A) 4.00 - 5.20 [facility] Hemoglobin, External 12.3 12.0 - 15.0 [facility] HCT, External 34.9(A) 36.0 - 46.0 [facility] MCV, External 108(A) 80 - 100 [facility] MCH, External 38.1(A) 26.0 - 34.0 [facility] MCHC, External 35.2 31.0 - 37.0 [facility] PLT, External 197 150 - 350 [facility] RDW-CV, External 12.2 11.5 - 14.5 [facility] Neutrophils, External 35.0 31.0 - 76.0 [facility] Lymphocytes, External 53.2(A) 24.0 - 44.0 [facility] Monocytes, External 9.4 2.0 - 11.0 [facility] Eosinophils, External 0.9(A) 1.0 - 4.0 [facility] Basophils, External 1.5 0.0 - 2.0 [facility] ABS Neutrophils, External 1.16(A) 1.50 - 7.80 [facility] ABS Lymphs, External 1.76 1.10 - 4.80 [facility] ABS Monocytes, External 0.31 [facility] ABS Eosinophils, External 0.03 [facility] ABS Basophils, External 0.05 [facility] Blood specimen (specimen) 01/30/2018 Historical Provider PACKAGES & DNA HI OBE ORDERABLES [facility] * (ABNORMAL) COMPREHENSIVE METABOLIC PANEL (CMP) (01/30/2018) GFR, Calculated, External >60 [facility] Glucose, Serum, External 90 74 - 106 [facility] Albumin, External 3.7 3.4 - 5.0 [facility] Total Alkaline Phosphatase, External 80 48 - 129 [facility] ALT, External 22 13 - 61 [facility] AST, External 23 15 - 37 [facility] BUN, External 19(A) 7 - 18 [facility] Calculated Calcium, External [facility] Calcium, External 9.1 8.5 - 10.1 [facility] Chloride, External 110(A) 98 - 107 [facility] CO2, External 29 21 - 32 [facility] Creatinine, External 0.9 0.6 - 1.3 [facility] Fasting?, External [facility] Potassium, External 4.1 3.5 - 5.1 [facility] Sodium, External 144 136 - 145 [facility] Total Protein, External 7.2 6.4 - 8.2 [facility] Bilirubin, Total, External 0.50 0.20 - 1.00 [facility] Blood specimen (specimen) 01/30/2018 Historical Provider CHEMISTRY & BLOOD GAS ORDERABLES [facility] documented in this encounter Visit Diagnoses Not on filedocumented in this encounter Additional Health Concerns Infection Onset Date Last Indicated Resolved Time R/O COVID-19 12/12/2023 12/12/2023 12/12/2023 15:3 5 EDT R/O COVID-19 01/08/2024 01/08/2024 01/08/2024 18:2 6 EDT R/O COVID-19 01/16/2024 01/16/2024 01/16/2024 17:5 0 EDT documented as of this encounter Care Teams Local Superintendent Relationship Specialty Start Date End Date Linda Blancas MD [facility] [address] [place] [address] PCP - General 01/06/11 Adolfo Carreno MD [address] [place] [address] 2 [place] [phone] General Surgery 04/26/19 Augustina Colin MD PhD [address] [place] [address], [facility] 2 [place] [phone] Medical Oncology 04/26/19 documented as of this encounter
--- OUTSIDE RECORDS SUMMARY | 2024-03-20 15:05 | XMS_ITS | Encounter Summary ---
Author Organization [facility] Address [address] [place] [address] Care Team Providers Care Wood Hacker Name Role Phone Linda Blancas MD Primary Care Provider [phone] Reason for Visit * Reason Comments Other Encounter Details Date Type Department Care Team (Late st Contact Info) Description 01/15/2018 Refill [facility] Hematology & Oncology - [facility] [address] [place], [place] [address] Augustina Colin MD PhD Other Social History [...] No 07/15/2017 documented as of this encounter Ordered Prescriptions Prescription Sig Dispensed Refills Start Date End Da te letrozole (FEMARA) 2.5 mg tabletIndications:Personal history of malignant neoplasm of breast,Breast lump TAKE 1 TABLET DAILY 90 Tab 3 01/16/2018 01/14/2019 documented in this encounter Miscellaneous Notes * Telephone Encounter - Quita Rob RN - 01/16/2018 0815 EDT Renewal prescription for letrozole has been processed through [facility]. Per the last office note, Continue letrozole 2.5 mg daily and palbociclib 100mg daily for 21 out of 28 days. ??Palbociclib will be started next Mon. documented in this encounter Plan of Treatment Upcoming Encounters Date Type Department Care Team (Late st Contact Info) Description 04/02/2024 10:30 EDT Appointment [facility] Interventional Radiology Unit [address] [place] [address] [phone] 04/02/2024 15:15 EDT Office Visit [facility] Surgical Oncology - [address] [phone] Adolfo Carreno MD [address] [place] [address], [facility] 2 [place] [phone] 04/05/2024 9:30 EDT Telemedicine [facility] - [facility] Palliative [facility] [address] [place] [address] [phone] Chichi Woods MD [address] [place] [address], [address] [phone] 04/11/2024 15:00 EDT Telemedicine [facility] Hematology & Oncology - [address] [phone] Alisson Carreon MD [address] [facility], Level [address] [place] [phone] 04/13/2024 13:30 EDT Appointment [facility] Hematology & Oncology [address] [phone] 04/13/2024 14:00 EDT Appointment [facility] Hematology & Oncology - [address] [phone] 04/16/2024 10:00 EST Telemedicine [facility] - [facility] Pall[facility] [address] [place] [address] [phone] Chichi Woods MD [address] [place] [address], [address] [phone] 04/24/2024 9:00 EST Appointment [facility] Radiology CT Outpatient - [address] [phone] 04/24/2024 11:00 EST Appointment [facility] Breast Imaging - [facility] [address] 805391 04/27/2024 12:00 EST Appointment [facility] Hematology & Oncology - [address] [phone] 05/02/2024 15:00 EST Telemedicine [facility] Hematology & Oncology - [address] [phone] Alisson Carreon MD [address] [place] [address], Level [address] [place] [phone] 05/04/2024 10:15 EST Ancillary Procedure [facility] Cardiology - [address] [place], [place] [phone] 05/04/2024 11:30 EST Appointment [facility] Hematology & Oncology [address] [address] 05/04/2024 12:00 EST Appointment [facility] Hematology & Oncology [address] [address] 06/12/2024 13:00 EST Appointment [facility] Radiology CT - [address] [address] documented as of this encounter Visit Diagnoses Diagnosis Personal history of malignant neoplasm of breast Breast lump Lump or mass in breast documented in this encounter Discontinued Medications Medication Sig Discontinue Reason Start Date End Da te letrozole (FEMARA) 2.5 mg tabletIndications:Person al history of malignant neoplasm of breast,Breast lump TAKE 1 TABLET DAILY Reorder 01/20/2017 8 documented as of this encounter Care Teams Wood Hacker Relationship Specialty Start Date End Date Linda Blancas MD [facility] [address] [place] [address] PCP - General 01/06/11 documented as of this encounter
--- OUTSIDE RECORDS SUMMARY | 2024-03-20 15:05 | XMS_ITS | Encounter Summary ---
Author Organization [facility] Address [address] [place] [address] Care Team Providers Care Qa Architect Name Role Phone Linda Blancas MD Primary Care Provider [phone] Reason for Visit * Reason Onset Date Comments Appointment Related 01/18/2018 Encounter Details Date Type Department Care Team (Late st Contact Info) Description 01/18/2018 Telephone [facility] OBGYN Services - [facility] [address] [place] [address] Quita Babb PA-C [address] [facility], Level [address] [place] [phone] Appointment Related Social History Tobacco [...] encounter Miscellaneous Notes * Telephone Encounter - Brandee Madison - 01/18/2018 0827 EDT Keren appointment on 01.20.18 at 2:30pm has been moved to 1:00pm. Voice mail not is service. Message left on kwiry. documented in this encounter Plan of Treatment Upcoming Encounters Date Type Department Care Team (Late st Contact Info) Description 04/02/2024 10:30 EDT Appointment [facility] Interventional Radiology Unit [address] [place] [address] [phone] 04/02/2024 15:15 EDT Office Visit [facility] Surgical Oncology - [address] [phone] Adolfo Carreno MD [address] [place] [address] [phone] 04/05/2024 9:30 EDT Telemedicine [facility] - [facility] Palliative Care Services [address] [place] [address] [phone] Chichi Woods MD [address] [place] [address] [phone] 04/11/2024 15:00 EDT Telemedicine [facility] Hematology & Oncology - [address] [phone] Alisson Carreon MD [address] [place] [address] [phone] 04/13/2024 13:30 EDT Appointment [facility] Hematology & Oncology - [address] [phone] 04/13/2024 14:00 EDT Appointment [facility] Hematology & Oncology - [address] [address] 04/16/2024 10:00 EST Telemedicine [facility] - [facility] Palliative Care Services [address] [place] [address] [phone] Chichi Woods MD [address] [place] [address] [phone] 04/24/2024 9:00 EST Appointment [facility] Radiology CT Outpatient - [address] [address] 04/24/2024 11:00 EST Appointment [facility] Breast Imaging - [facility] [address] 355611 04/27/2024 12:00 EST Appointment [facility] Hematology & Oncology [address] [address] 05/02/2024 15:00 EST Telemedicine [facility] Hematology & Oncology - [address] [address] Alisson Carreon MD [address] [place], [place] [address]ili, Level [address] [place] [phone] 05/04/2024 10:15 EST Ancillary Procedure [facility] Cardiology - [place] [address] 05/04/2024 11:30 EST Appointment [facility] Hematology & Oncology - [address] [phone] 05/04/2024 12:00 EST Appointment [facility] Cancer [facility] Hematology & Oncology - [address] 122461 06/12/2024 13:00 EST [facility]ment [facility] Radiology CT - [address] [address] documented as of this encounter Visit Diagnoses Not on filedocumented in this encounter Care Teams Qa Architect Relationship Specialty Start Date End Date Linda Blancas MD [facility] [address] [place] [address] PCP - General 01/06/11 documented as of this encounter
--- OUTSIDE RECORDS SUMMARY | 2024-03-20 15:05 | XMS_ITS | Encounter Summary ---
Author Organization [facility] Address [address] [place] [address] Care Team Providers Care Supervisor Photocomposition Name Role Phone Linda Blancas MD Primary Care Provider [phone] Encounter Details Date Type Department Care Team (Late st Contact Info) Description 01/19/2018 Results Only Imaging [facility]- [facility] [phone] Linda Blancas MD [address] [place], [place] [phone] Social History Tobacco Use Types Packs/Day Years [...] [facility] Interventional Radiology Unit [address] [place] [address] [phone] 04/02/2024 15:15 EDT Office Visit [facility] Surgical Oncology - [address] [phone] Adolfo Carreno MD [address] [place] [address] [phone] 04/05/2024 9:30 EDT Telemedicine [facility] Palliative Care Services [address] [place] [address] 150071 Chichi Woods MD [address] [place] [address] [phone] 04/11/2024 15:00 EDT Telemedicine [facility] Hematology & Oncology [address] 386221 Alisson Carreon MD [address] [place] [address] [phone] 04/13/2024 13:30 EDT Appointment [facility] Hematology & Oncology [address] [phone] 04/13/2024 14:00 EDT Appointment [facility] Hematology & Oncology [address] [phone] 04/16/2024 10:00 EST Telemedicine [facility] Palliative Care Services [address] [place] [address] [phone] Chichi Woods MD [address] [place] [address], [address] [phone] 04/24/2024 9:00 EST Appointment [facility] Radiology CT Outpatient - [address] [id number] 04/24/2024 11:00 EST Appointment [facility] Breast Imaging - [address] [phone] 04/27/2024 12:00 EST Appointment [facility] Hematology & Oncology [address] [phone] 05/02/2024 15:00 EST Telemedicine [facility] Hematology & Oncology [address] [phone] Alisson Carreon MD [address] [place] [address], Level [address] [place] [phone] 05/04/2024 10:15 EST Ancillary Procedure [facility] Cardiology [place] [address] 05/04/2024 11:30 EST Appointment [facility] Hematology & Oncology [address] [phone] 05/04/2024 12:00 EST Appointment [facility] Hematology & Oncology - [address] [phone] 06/12/2024 13:00 EST Appointment [facility] Radiology CT - [address] [phone] documented as of this encounter Procedures Procedure Name Priority Date/Time Associated Diagnosis Comments [facility] BREAST-BREAST CARE CENTER ONLY 01/19/2018 15:17 EDT MA 2D/3D UNILATERAL LEFT ONLY ROUTINE ESTEVAN SCREENING MAMMO 01/19/2018 9:47 EDT documented in this encounter Results * [facility] BREAST-BREAST CARE CENTER ONLY (01/19/2018 15:17 EDT) Anatomical Region Laterality Modality Other 01/19/2018 15:1 7 EDT Narrative 01/19/2018 15:17 EDT See Notes Tab. Procedure Note TUB ATTENDANT, IMAGING - 01/19/2018 See Notes Tab. Adolfo Carreno MD [facility] ORDERABLES * MA 2D/3D UNILATERAL LEFT ONLY ROUTINE ESTEVAN SCREENING MAMMO (01/19/2018 9:47 EDT) Anatomical Region Laterality Modality Other 01/19/2018 9:47 EDT 01/23/2018 16:54 EDT Narrative 01/23/2018 16:54 EDT Comparison has been made to previous images. Left Breast Findings: (Full breast 2D and implant displaced 3D Tomosynthesis with synthesized 2D views with CAD) There are scattered fibroglandular densities (25% - 50% fibroglandular). A normal-appearing retro-pectoral, saline implant is present. There are no other significant abnormalities. IMPRESSION: LEFT BREAST: A normal-appearing retro-pectoral, saline implant. Benign, no evidence of malignancy. Normal interval follow-up is recommended in 12 months. OVERALL ASSESSMENT - CATEGORY 2 - BENIGN END OF IMPRESSION These results will be communicated to your patient via a lay letter from Radiology. If any additional imaging is needed we will contact your patient directly. Procedure Note Tylor Williamson MD - 01/23/2018 Comparison has been made to previous images. Left Breast Findings: (Full breast 2D and implant displaced 3D Tomosynthesis with synthesized 2D views with CAD) There are scattered fibroglandular densities (25% - 50% fibroglandular). A normal-appearing retro-pectoral, saline implant is present. There are no other significant abnormalities. IMPRESSION: LEFT BREAST: A normal-appearing retro-pectoral, saline implant. Benign, no evidence of malignancy. Normal interval follow-up is recommended in 12 months. OVERALL ASSESSMENT - CATEGORY 2 - BENIGN END OF IMPRESSION These results will be communicated to your patient via a lay letter from Radiology. If any additional imaging is needed we will contact your patient directly. Linda Blancas MD IMG MAMMOGRAPHY JAIMEE ACOSTA documented in this encounter Visit Diagnoses Not on filedocumented in this encounter Care Teams Supervisor Photocomposition Relationship Specialty Start Date End Date Linda Blancas MD [address] [place] [address] PCP - General 01/06/11 documented as of this encounter
--- OUTSIDE RECORDS SUMMARY | 2024-03-20 15:05 | XMS_ITS | Encounter Summary ---
Author Organization [facility] Address [address] [place] [address] Care Team Providers Care Hotbed Transfer Operator Name Role Phone Linda Blancas MD Primary Care Provider [phone] Adolfo Carreno MD Unavailable [phone] Augustina Colin MD PhD Unavailable Unavailable Reason for Visit * Reason Onset Date Comments Results 11/14/2017 Encounter Details Date Type Department Care Team (Late st Contact Info) Description 11/14/2017 Telephone [facility] Hematology & Oncology - Main [place] [address] [place], [place] [id number] Augustina Colin, PhD Results Social History Tobacco [...] * Telephone Encounter - Daniela Botello - 11/14/2017 1043 EDT Labs entered from: [facility] Daniela Botello 11/14/2017 10:44 documented in this encounter Plan of Treatment Upcoming Encounters Date Type Department Care Team (Late st Contact Info) Description 04/02/2024 10:30 EDT Appointment [facility] Interventional Radiology Unit [address] [place] [address] [phone] 04/02/2024 15:15 EDT Office Visit [facility] Surgical Oncology - [address] [phone] Adolfo Carreno MD [address] [place] [address] 2 [place] [phone] 04/05/2024 9:30 EDT Telemedicine [facility] - [facility] Palliative Care Services [address] [place], [place] [phone] Chichi Woods MD [address] [place] [phone] 04/11/2024 15:00 EDT Telemedicine [email or web address]] Hematology & Oncology [address] [phone] Alisson Carreon MD [address] [place] [address] 2 [place] [phone] 04/13/2024 13:30 EDT Appointment [facility] [[email or web address]] Hematology & Oncology - [address] [address] 04/13/2024 14:00 EDT Appointment [facility] [[email or web address]] Hematology & Oncology [address] [phone] 04/16/2024 10:00 EST Telemedicine [facility] - [facility] Palliative Care Services [address] [place] [address] [phone] Chichi Woods MD [address] [place] [address], [address] [phone] 04/24/2024 9:00 EST Appointment [facility] Radiology CT Outpatient - [address] [id number] 04/24/2024 11:00 EST Appointment [facility] Breast Imaging - [facility] [address] 011391 04/27/2024 12:00 EST Appointment [facility] [[email or web address]] Hematology & Oncology - [address] [phone] 05/02/2024 15:00 EST Telemedicine [facility] [[email or web address]] Hematology & Oncology [address] [phone] Alisson Carreon MD [address] [place] [address], Level 2 [place] [phone] 05/04/2024 10:15 EST Ancillary Procedure [facility] Cardiology - [place] [address] 05/04/2024 11:30 EST Appointment [facility] [[email or web address]] Hematology & Oncology [address] [phone] 05/04/2024 12:00 EST Appointment [facility] [[email or web address]] Hematology & Oncology [address] 401131 06/12/2024 13:00 [facility] Radiology CT - Main [address] [address] documented as of this encounter Procedures Procedure Name Priority Date/Time Associated Diagnosis Comments COMPLETE BLOOD COUNT AND DIFFERENTIAL Routine 11/09/2017 COMPREHENSIVE METABOLIC PANEL (CMP) Routine 11/09/2017 documented in this encounter Results * (ABNORMAL) HEMAGRAM AND DIFFERENTIAL (11/09/2017) WBC, External 3.3(A) 4.5 - 11.0 [facility] RBC, External 3.43(A) 4.00 - 5.20 [facility] Hemoglobin, External 12.5 12.0 - 15.0 [facility] HCT, External 37.0 36.0 - 46.0 [facility] MCV, External 108(A) 80 - 100 [facility] MCH, External 36.4(A) 26.0 - 34.0 [facility] MCHC, External 33.8 31.0 - 37.0 [facility] PLT, External 214 150 - 350 [facility] RDW-CV, External 13.7 11.5 - 14.5 [facility] Neutrophils, External 38 31 - 76 [facility] Lymphocytes, External 37 24 - 44 [facility] Monocytes, External 5 2 - 11 [facility] Eosinophils, External 1 1 - 4 [facility] Basophils, External 2 0 - 2 [facility] ABS Neutrophils, External 1.3(A) 1.5 - 7.8 [facility] ABS Lymphs, External 1.8 1.1 - 4.8 [facility] ABS Monocytes, External 0.2 [facility] ABS Eosinophils, External 0.0 [facility] ABS Basophils, External 0.1 [facility] Blood specimen (specimen) 11/09/2017 Historical Provider MD PACKAGES & DNA [place] OBE ORDERABLES [facility] * (ABNORMAL) COMPREHENSIVE METABOLIC PANEL (CMP) (11/09/2017) GFR, Calculated, External >60 [facility] Glucose, Serum, External 96 74 - 106 [facility] Albumin, External 3.8 3.4 - 5.0 [facility] Total Alkaline Phosphatase, External 84 48 - 129 [facility] ALT, External 19 13 - 61 [facility] AST, External 15 15 - 37 [facility] BUN, External 15 7 - 18 [facility] Calculated Calcium, External [facility] Calcium, External 8.6 8.5 - 10.1 [facility] Chloride, External 108(A) 98 - 107 [facility] CO2, External 26 21 - 32 [facility] Creatinine, External 0.8 0.6 - 1.3 [facility] Fasting?, External [facility] Potassium, External 3.7 3.5 - 5.1 [facility] Sodium, External 144 136 - 145 [facility] Total Protein, External 7.1 6.4 - 8.2 [facility] Bilirubin, Total, External 0.43 0.20 - 1.00 [facility] Blood specimen (specimen) 11/09/2017 Historical Provider CHEMISTRY & BLOOD GAS ORDERABLES [facility] documented in this encounter Visit Diagnoses Not on filedocumented in this encounter Additional Health Concerns Infection Onset Date Last Indicated Resolved Time R/O COVID-19 12/12/2023 12/12/2023 12/12/2023 15:3 5 EDT R/O COVID-19 01/08/2024 01/08/2024 01/08/2024 18:2 6 EDT R/O COVID-19 01/16/2024 01/16/2024 01/16/2024 17:5 0 EDT documented as of this encounter Care Teams Hotbed Transfer Operator Relationship Specialty Start Date End Date Linda Blancas MD [facility] [address] [place] [address] PCP - General 01/06/11 Adolfo Carreno MD [address] [place] [phone] General Surgery 04/26/19 Augustina Colin MD PhD [address] [place] [phone] Medical Oncology 04/26/19 documented as of this encounter
--- OUTSIDE RECORDS SUMMARY | 2024-03-20 15:05 | XMS_ITS | Encounter Summary ---
Author Organization [facility] Address [address] [place] [address] Care Team Providers Care Cat Scanner Operator Name Role Phone Linda Blancas MD Primary Care Provider Reason for Visit * Reason Onset Date Comments Labs Only 12/05/2017 standing order f or CBC and Chem 4 Encounter Details Date Type Department Care Team (Late st Contact Info) Description 12/05/2017 Telephone [facility] Hematology & Oncology - [address] [address] Augustina Colin MD PhD Labs Only (standing order for CBC and Chem 4) Social History Tobacco Use Types Packs/Day Years [...] Telephone Encounter - uQita Rob RN - 12/05/2017 1205 EDT New order for standing lab order for monthly CBCD and CMP faxed to [phone]. * Telephone Encounter - Lois Serna - 12/05/2017 1153 EDT Reason for Call: Labs Only (standing order for CBC and Chem 4) Summary/Symptoms: Patient needs a new lab order for monthly draws faxed to [phone]. Patient isat lab now. Lois Serna 12/05/2017 11:53 documented in this encounter Plan of Treatment Upcoming Encounters Date Type Department Care Team (Late st Contact Info) Description 04/02/2024 10:30 EDT Appointment [facility] Interventional Radiology Unit [address] [place] [phone] 04/02/2024 15:15 EDT Office Visit [facility] Surgical Oncology - [address] [phone] Adolfo Carreno MD [address] [facility], Level [address] [place] [phone] 04/05/2024 9:30 EDT Telemedicine [facility] - [facility] Palliative Care Services [address] [place] [address] [phone] Chichi Woods MD [address] [facility], [address] [phone] 04/11/2024 15:00 EDT Telemedicine [facility] Hematology & Oncology - [address] [phone] Alisson Carreon MD [address] [place] [address] 2 [place] [phone] 04/13/2024 13:30 EDT Appointment [facility] Hematology & Oncology - [address] [phone] 04/13/2024 14:00 EDT Appointment [facility] Hematology & Oncology [address] [phone] 04/16/2024 10:00 EST Telemedicine [facility] - [facility] Palliative Care Services [address] [place] [address] [phone] Chichi Woods MD [address] [place] [phone] 04/24/2024 9:00 EST Appointment [facility] Radiology CT Outpatient - [address] [phone] 04/24/2024 11:00 EST Appointment [facility] Breast Imaging - [address] [phone] 04/27/2024 12:00 EST Appointment [facility] Hematology & Oncology - [address] [phone] 05/02/2024 15:00 EST Telemedicine [facility] Hematology & Oncology - [address] [phone] Alisson Carreon MD [address] [place] [address], [facility] [address] [place] [phone] 05/04/2024 10:15 EST Ancillary Procedure [facility] Cardiology - [address] [place] [address] 05/04/2024 11:30 EST Appointment [facility] Hematology & Oncology [address] [phone] 05/04/2024 12:00 EST Appointment [facility] Hematology & Oncology [address] [phone] 06/12/2024 13:00 EST Appointment [facility] Radiology CT - [address] [phone] documented as of this encounter Visit Diagnoses Not on filedocumented in this encounter Care Teams Cat Scanner Operator Relationship Specialty Start Date End Date Linda Blancas MD [facility] [address] [place] [address] PCP - General 01/06/11 documented as of this encounter
--- OUTSIDE RECORDS SUMMARY | 2024-03-20 15:06 | XMS_ITS | Encounter Summary ---
Author Organization [facility] Address [address] [place] [address] Care Team Providers Care Electronics Engineering Professor Name Role Phone Linda Blancas MD Primary Care Provider [phone] Reason for Referral * Consult (Routine) - New Request Specialty Diagnoses / Procedures Referred By Contdayanna hearn Referred To Contact Diagnoses Encounter for palliative care Metastatic breast cancer Vanessa Rollins NP [address] [place] [phone] Melyssa Varela CCLS Referral ID Status Reason Start Date Expiration Date Visits Requested Visits Authorized [id number] New Request Specialty Services Required 10/03/2017 1 1 Comments Patient interested in legacy work for nieces/nephews Reason for Visit * Reason Comments New Patient Visit Encounter Details Date Type Department Care Team (Late st Contact Info) Description 10/03/2017 14:10 EDT Office Visit [facility] Hematology & Oncology - [address] [phone] Vanessa Rollins NP [address] [place] [phone] Metastatic breast cancer (HCC-CMS) (Primary Dx); Encounter for palliative care Social History Tobacco Use Types Packs/Day Years [...] Sign Reading Time Taken Comments Blood Pressure 131/62 10/03/2017 1422 EDT Pulse 81 10/03/2017 1422 EDT Temperature 36.3 ??C (97.4 ??F) 10/03/2017 1422 EDT Respiratory Rate 16 10/03/2017 1422 EDT Oxygen Saturation 96% 10/03/2017 1422 EDT Inhaled Oxygen Concentration - - Weight 66.3 kg (146 lb 1.6 oz) 10/03/2017 1422 E DT Height - - Body Mass Index 26.94 07/07/2017 1400 EST documented in this encounter [...] as of this encounter Progress Notes * Vanessa Rollins NP - 10/03/2017 1410 EDT PALLIATIVE CARE SERVICE INITIAL OUTPATIENT CONSULT DATE OF CONSULT: 10/03/2017 ASKED TO SEE PT IN CONSULTATION BY: REASON FOR CONSULTATION: Dr. Colin EOL decision making ASSESSMENT: Pascale is a delightful woman with a diagnosis of metastatic breast cancer. She is here today for a palliative care consultation to discuss end of life planning. She was diagnosed about a year ago andis currently undergoing treatment. She feels well physically with little side effects of either her disease or treatment at this time aside from fatigue. She was working for the [employer] in [employer] and prior to that in [employer] but recently stopped working and is on disability. She is , no children. She has a sister and brother and her mother who are still alive and living in [place]. Her father is and one of her brothers also suddenly from a blood clot. 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 She wants to get as much organized both financially and medically in the event she should become more ill and unable to make these decisions. She states that her is having a very hard time discussing any of this and she is here today without his knowledge. She feels it is important for her own well-being that she have the information she needs to move forward and hopes that he will eventually be in a place where he can be more open to discussing these difficult topics. Her goals are to continue to live well for as long as possible and she is hopeful that this will be many years. She is also realistic in that she is well aware that she has metastatic disease and her prognosis is not great. She is someone who wants clear prognostic information and feels she would benefit from knowing how much time she has so she can make plans and optimize her time. At this point in time she envisions that she will seek hospice care once she is no longer well enough for active treatment. She would like to remain home while s he's relatively independent but feels that her really will not be able to care for her whenshe is very ill. She would prefer not to in her home but would like to avoid a assisted or hospital for her final days or weeks of life. She is also interested in obtaining information on ACT39 as she does not want to prolong her suffering or linger and cause her family suffering. Spiritually she feels content with her strong sienna in God. She was raised a Baptism but attends the Voodoo presybeterian. She finds comfort in her adventism and feels that if she has lived a good life than she will be ok. She is not afraid of dying but is very worried about leaving her whom she feels is not going to do well when she dies. She also acknowledges that this may be the best that she feels and wants to optimize her time traveling and spending time with family. The latter is very important to her and is what gives her life meaning. She is close to her nieces and wants to create a legacy of memories for them as even though she hopes to still live for several years she wants her fam jr to remember her in a positive way. Pascale is a very vibrant and enthusiastic woman. She is very interested in gathering information soshe can be as prepared as possible for when she becomes more ill. She also indicated that having asmuch control as possible over the circumstances of her is also important to her. We discussedmultiple issues including EOL planning with regards to completing an AD and making arrangements fordisposition of her ashes. We also dicussed the logistics of ACT 39 and I directed her to the [place] [employer] web site for more information. We also reviewed options for end of life care which could include hospice care in her home as well as VR should she want to avoid dying at home or in a nursinghome. She is clear that she does not want her life prolonged once she becomes more ill and beyond treatment options. She is also very interested in prognosis with regards to how her disease will progress and how long she will have to live. We agreed that as time goes on we will have a better idea but for now it is too early to accurately predict how her disease will respond to treatment or how wel l she will endure therapies. Overall I feel Pascale is in a very good place to organize many of these details that are important to her. I suggested she complete all of her financial planning that sheis currently doing and then focus on her Advance Directive. She needs to have an honest conversation with her about his willingness to serve as a surrogate decision maker as she expressed concern that he may not be able to make hard decisions when the time comes. We agreed to meet again in about 6 months. In the meantime we will assist with her AD and submit to the registry and we can talk at any time things come up. I encouraged her to focus on living well during this time and spend her time with her family as this is very important to her. RECOMMENDATIONS: 1. Completion of Advance Directive, continue with financial planning 2. Information provided for VR, tour at some point if interested 3. PC f/u 6 months or sooner if needed 4. Referral to CYNDI Jett HISTORY OF PRESENT ILLNESS: PROBLEM LIST: (from Dr. Colin's progress note) 1. 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 a. ??Ultrasound performed in [place]??identifying an irregular heterogeneous soft tissue mass measuring 1.2 x 1.2 x 1.5 cm. ?? 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 ??HER-2 1+ by IHC. ??ANNE [...] dose reduction due to mouth sores. ?? 2. 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 ??This DCIS was nuclear grade 2, per report 2.7 cm in greatest dimension a. ??Right total mastectomy and implant reconstruction. ??She had augmentation done with the left breast. ??A positive margin was present. ??No additional surgery could be offered because of the location of the margin b. Declined radiation and??tamoxifen. 3. 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 ?? GOALS OF CARE: Restorative, life extension with consideration for aggressive therapies if indicated Symptoms: Main Symptoms: Review of Systems: Dyspnea:No Cough:No Secretions:No Weight loss:No Loss of appetite:No Nausea/vomiting:No Abdominal pain:No Constipation: No Sleep impairment:No Fatigue:Yes Sedation/drowsiness:No Difficulty thinking:No Restlessness:No Anxiety:No Depression:No Other: headache PERFORMANCE STATUS: Able to carry on normal activity and to work; no special care needed 90 = Able to carry on normal activity; minor signs or symptoms of disease 0 = Fully active, able to carry on all pre-disease performance without restriction PSYCHOSOCIAL: PATIENT?? S UNDERSTANDINGOF PROGNOSIS: Prognostic Uncertainty: Uncertainty about what to expect from the course of illness was a substantial source of patient distress in our conversation today. FAMILY'S UNDERSTANDING OF PROGNOSIS: Unable to assess DECISION MAKING PREFERENCES: Patient is primary decision maker but welcomes involvement of family and Family is primary decisionmaker based on patient's preferences to defer details SUPPORT SYSTEM: Family and Friends SPIRITUAL: Jain/spiritual orientation: Mormon/Sienna: Voodoo Involvement in Spiritual Community: not at this time Desire for Lactation Coordinator support: At some point ADVANCE CARE PLANNING: ADVANCE DIRECTIVE: Provided copy today, patient will complete DURABLE POWER OF CLINICAL BIOSTATISTICS DIRECTOR- FINANCE: In process COLST/MOLST FORM: Not necessary at this time, will continue to evaluate CODE STATUS: Full Code PMH PSH Patient Active Problem List Patient Active Problem List Diagnosis ??? Papanicolaou [...] ??? Encounter for palliative care Past Medical History Past Medical History: Diagnosis Date ??? Allergy ??? Arthritis ??? Back pain ??? 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 Environmental allergies ??? Hearing loss ??? Numbness ??? Wears glasses Past Surgical History Past Surgical History: Procedure Laterality Date ??? BACK SURGERY December 2011 L3 - S1 spinal decompression and fusion ??? BREAST RECONSTRUCTION 01/30/2004 subpectoral implant ??? BREAST SURGERY 01/30/2004 Right mastectomy ??? CARPAL TUNNEL RELEASE 2007 ??? LIPOMA RESECTION 2000 MEDICATIONS Reviewed, notable included in HPI above ALLERGIES Allergies Allergen Reactions ??? Amoxicillin Other (See Comments) and Rash Red rash ??? Sulfa (Sulfonamide Antibiotics) Hives Light lavender rash SOCIAL HISTORY FAMILY HISTORY Social History Social History ??? Marital status: Spouse name: N/A ??? Number of children: N/A ??? Years of education: N/A Occupational History ??? Not on file. Social History Main Topics ??? Smoking status: Never Smoker ??? Smokeless tobacco: Never Used ??? Alcohol use 0.6 - 1.8 oz/week 1 - 3 Glasses of wine per week ??? Drug use: No ??? Sexual activity: Yes Partners: Male Other Topics Concern ??? Not on file Social History Narrative Family History Problem Relation Age of Onset ??? Cancer Father bladder ??? Cancer Brother 59 esophageal ??? Cancer Maternal Uncle bladder ??? Breast Cancer Paternal Aunt 35 OBJECTIVE: Physical Exam: Well-appearing older white female, no distress. A&Ox3, pleasant and engaging. Skin is warm, dry, no pallor. Breathing unlabored at rest. PALLIATIVE CARE DOMAINS ADDRESSED: Goals of Care, Advance Care Planing, Prognostication and Psychosocial Support 80 minutes was spent with the patient, the entire time in [id number] counseling documented in this encounter Plan of Treatment Upcoming Encounters Date Type Department Care Team (Late st Contact Info) Description 04/02/2024 10:30 EDT Appointment [facility] Interventional Radiology Unit [address], [place] [phone] 04/02/2024 15:15 EDT Office Visit [facility] Surgical Oncology - [address] [phone] Adolfo Carreno MD [address] [facility], [address] [place] [phone] 04/05/2024 9:30 EDT Telemedicine [facility] Palliative [facility] Services [address] [place] [address] [phone] Chihci Woods MD [address] [place] [phone] 04/11/2024 15:00 EDT Telemedicine [facility] Hematology & Oncology [address] [phone] Alisson Carreon MD [address] [place] [address], [address] [place] [phone] 04/13/2024 13:30 EDT Appointment [facility] Hematology & Oncology [address] [address] 04/13/2024 14:00 EDT Appointment [facility] Hematology & Oncology [address] [phone] 04/16/2024 10:00 EST Telemedicine [facility] Palliative Care Services [address] [place] [phone] Chichi Woods MD [address] [place] [phone] 04/24/2024 9:00 EST Appointment [facility] Radiology CT Outpatient - [address] [id number] 04/24/2024 11:00 EST Appointment [facility] Breast Imaging - [address] [phone] 04/27/2024 12:00 EST Appointment [facility] Hematology & Oncology - [address] [phone] 05/02/2024 15:00 EST Telemedicine [facility] Hematology & Oncology - [address] [phone] Alisson Carreon MD 111 [facility], [address] [place] [phone] 05/04/2024 10:15 EST Ancillary Procedure [facility] Cardiology - [address] [place], [place] [phone] 05/04/2024 11:30 EST Appointment [facility] Hematology & Oncology - [address] [phone] 05/04/2024 12:00 EST Appointment [facility] Hematology & Oncology [address] [phone] 06/12/2024 13:00 EST Appointment [facility] Radiology CT - [facility] [address] [place], [place] [phone] Scheduled Referrals Name Type Priority Associated Diagnoses Orde r Schedule [facility] Outpatient Referral Routine Encounter for palliative care Metastatic breast cancer (CMS-HCC) (HCC-CMS) Ordered: 10/03/2017 documented as of this encounter Visit Diagnoses Diagnosis Metastatic breast cancer- Primary Encounter for palliative care documented in this encounter Care Teams Electronics Engineering Professor Relationship Specialty Start Date End Date Linda Blancas MD [facility] [address] [place] [address] PCP - General 01/06/11 documented as of this encounter
--- OUTSIDE RECORDS SUMMARY | 2024-03-20 15:06 | XMS_ITS | Encounter Summary ---
Author Organization [facility] Address [address] [place] [address] Care Team Providers Care Supervisor Mending Name Role Phone Linda Blancas MD Primary Care Provider [phone] Reason for Visit * Reason Onset Date Comments Labs Only 09/12/2017 Encounter Details Date Type Department Care Team (Late st Contact Info) Description 09/12/2017 Telephone [facility] Hematology & Oncology - [facility] [address] [place], [place] [address] Quita Rob, SHELLEY Labs Only Social History [...] Telephone Encounter - Quita Rob RN - 09/12/2017 0921 EDT Faxed lab requisition to PCP office for a Ca27.29 to be drawn with next set of labs. documented in this encounter Plan of Treatment Upcoming Encounters Date Type Department Care Team (Late st Contact Info) Description 04/02/2024 10:30 EDT Appointment [facility] Interventional Radiology Unit [address] [place] [phone] 04/02/2024 15:15 EDT Office Visit [facility] Surgical Oncology - [address] [address] Adolfo Carreno MD [address] [place] [address] [address] [place] [phone] 04/05/2024 9:30 EDT Telemedicine [facility] Palliative Care Services [address] [place] [phone] Chichi Woods MD [address] [place] [phone] 04/11/2024 15:00 EDT Telemedicine [facility] Hematology & Oncology [address] [phone] Alisson Carreon MD [address] [place] [phone] 04/13/2024 13:30 EDT Appointment [facility] Hematology & Oncology - [address] [phone] 04/13/2024 14:00 EDT Appointment [facility] Hematology & Oncology - [address] [address] 04/16/2024 10:00 EST Telemedicine [facility] - [facility] Palliative Care Services [address] [place] [address] Chichi Woods MD 111 [facility], [address] [phone] 04/24/2024 9:00 EST Appointment [facility] Radiology CT Outpatient - [address] [address] 04/24/2024 11:00 EST Appointment [facility] Breast Imaging - [facility] [address] [place], [place] [address] 04/27/2024 12:00 EST Appointment [facility] Hematology & Oncology - [address] [phone] 05/02/2024 15:00 EST Telemedicine [facility] Hematology & Oncology - [address] [phone] Alisson Carreon MD [address] [place] [address], [address] [place] [phone] 05/04/2024 10:15 EST Ancillary Procedure [facility] Cardiology - [place] [address] 05/04/2024 11:30 EST Appointment [facility] Hematology & Oncology - [address] [address] 05/04/2024 12:00 EST Appointment [facility] Hematology & Oncology - [address] [phone] 06/12/2024 13:00 EST [facility]ointment [facility] Rad[facility] - [address] [phone] documented as of this encounter Visit Diagnoses Not on filedocumented in this encounter Care Teams Supervisor Mending Relationship Specialty Start Date End Date Linda Blancas MD [facility] [address] [place] [address] PCP - General 01/06/11 documented as of this encounter
--- OUTSIDE RECORDS SUMMARY | 2024-03-20 15:06 | XMS_ITS | Encounter Summary ---
Author Organization [facility] Address [address] [place] [address] Care Team Providers Care Rn Complex Care Name Role Phone Linda Blancas MD Primary Care Provider [phone] Adolfo Carreno MD Unavailable [phone] Augustina Colin MD PhD Unavailable Unavailable Reason for Visit * Reason Onset Date Comments Results 09/12/2017 Encounter Details Date Type Department Care Team (Late st Contact Info) Description 09/12/2017 Telephone [facility] Hematology & Oncology - [place] [address] [place], [place] 3639[address] Augustina Colin, PhD Results Social History Tobacco [...] * Telephone Encounter - Daniela Botello - 09/12/2017 1616 EDT Labs entered from: [facility] Daniela Botello 09/12/2017 16:17 documented in this encounter Plan of Treatment Upcoming Encounters Date Type Department Care Team (Late st Contact Info) Description 04/02/2024 10:30 EDT Appointment [facility] Interventional Radiology Unit [address] [place] [address] [phone] 04/02/2024 15:15 EDT Office Visit [facility] Surgical Oncology - [address] [phone] Adolfo Carreno MD [address] [place] [address] 2 [place] [phone] 04/05/2024 9:30 EDT Telemedicine [facility] - [facility] Palliative Care Services [address] [place], [place] [phone] Chichi Woods MD [address] [place] [address] [phone] 04/11/2024 15:00 EDT Telemedicine [facility] Hematology & Oncology [address] [phone] Alisson Carreon MD [address] [place] [address] 2 [place] [phone] 04/13/2024 13:30 EDT Appointment [facility] Hematology & Oncology - [address] [address] 04/13/2024 14:00 EDT Appointment [facility] Hematology & Oncology [address] [phone] 04/16/2024 10:00 EST Telemedicine [facility] - [facility] Palliative Care Services [address] [place] [address] 716321 Chichi Woods MD [address] [place] [address], [address] [phone] 04/24/2024 9:00 EST Appointment [facility] Radiology CT Outpatient - [address] 260411 04/24/2024 11:00 EST Appointment [facility] Breast Imaging - [facility] S [address] [id number] 04/27/2024 12:00 EST Appointment [facility] Hematology & Oncology - [address] [phone] 05/02/2024 15:00 EST Telemedicine [facility] Hematology & Oncology [address] [phone] Alisson Carreon MD [address] [place] [address], Level [address] [place] [phone] 05/04/2024 10:15 EST Ancillary Procedure [facility] Cardiology [place] [address] [place] [address] 05/04/2024 11:30 EST Appointment [facility] Hematology & Oncology [address] 167441 05/04/2024 12:00 EST Appointment [facility] Hematology & Oncology [address] [id number] 06/12/2024 13:00 [facility] Radiology CT - [address] [address] documented as of this encounter Procedures Procedure Name Priority Date/Time Associated Diagnosis Comments CA 125 Routine 09/12/2017 COMPLETE BLOOD COUNT AND DIFFERENTIAL Routine 09/12/2017 COMPREHENSIVE METABOLIC PANEL (CMP) Routine 09/12/2017 COMPLETE BLOOD COUNT AND DIFFERENTIAL Routine 08/15/2017 COMPREHENSIVE METABOLIC PANEL (CMP) Routine 08/15/2017 documented in this encounter Results * CA 125 (09/12/2017) CA 125, External 7.3 1.5 - 35.0 [facility] Blood specimen (specimen) 09/12/2017 Historical Provider MD CHEMISTRY & BLOOD GAS ORDERABLES EX[facility]ACILITY * (ABNORMAL) COMPREHENSIVE METABOLIC PANEL (CMP) (09/12/2017) GFR, Calculated, External [facility] Glucose, Serum, External 113(A) 74 - 106 [facility] Albumin, External 3.9 3.4 - 5.0 [facility] Total Alkaline Phosphatase, External 83 48 - 129 [facility] ALT, External 23 13 - 61 [facility] AST, External 21 15 - 37 [facility] BUN, External 19(A) 7 - 18 [facility] Calculated Calcium, External [facility] Calcium, External 9.1 8.5 - 10.1 [facility] Chloride, External 105 98 - 107 [facility] CO2, External 28 21 - 32 [facility] Creatinine, External 0.8 0.6 - 1.3 [facility] Fasting?, External [facility] Potassium, External 4.4 3.5 - 5.1 [facility] Sodium, External 141 136 - 145 [facility] Total Protein, External 7.4 6.4 - 8.2 [facility] Bilirubin, Total, External 0.28 0.20 - 1.00 [facility] Blood specimen (specimen) 09/12/2017 Historical Provider MD CHEMISTRY & BLOOD GAS ORDERABLES EX[facility]ACILITY * (ABNORMAL) HEMAGRAM AND DIFFERENTIAL (09/12/2017) WBC, External 3.8(A) 4.5 - 11.0 [facility] RBC, External 3.37(A) 4.00 - 5.20 [facility] Hemoglobin, External 12.1 12.0 - 15.0 [facility] HCT, External 36.4 36.0 - 46.0 [facility] MCV, External 108(A) 80 - 100 [facility] MCH, External 35.9(A) 26.0 - 34.0 [facility] MCHC, External 33.2 31.0 - 37.0 [facility] PLT, External 208 150 - 350 [facility] RDW-CV, External 14.6(A) 11.5 - 14.5 [facility] Neutrophils, External 43.5 31.0 - 76.0 [facility] Lymphocytes, External 48.7(A) 24.0 - 44.0 [facility] Monocytes, External 6.4 2.0 - 11.0 [facility] Eosinophils, External 0.3(A) 1.0 - 4.0 [facility] Basophils, External 0.8 0.0 - 2.0 [facility] ABS Neutrophils, External 1.64 1.50 - 7.80 [facility] ABS Lymphs, External 1.83 1.10 - 4.80 [facility] ABS Monocytes, External 0.24 [facility] ABS Eosinophils, External 0.01 [facility] ABS Basophils, External 0.03 EX[facility]ACILITY Blood specimen (specimen) 09/12/2017 Historical Provider PACKAGES & DNA ME OBE ORDERABLES EXTERNAL FACILITY * (ABNORMAL) COMPREHENSIVE METABOLIC PANEL (CMP) (08/15/2017) GFR, Calculated, External [facility] Glucose, Serum, External 151(A) 74 - 106 [facility] Albumin, External 3.7 3.4 - 5.0 [facility] Total Alkaline Phosphatase, External 91 48 - 129 [facility] ALT, External 19 13 - 61 [facility] AST, External 19 15 - 37 [facility] BUN, External 17 7 - 18 [facility] Calculated Calcium, External [facility] Calcium, External 8.6 8.5 - 10.1 [facility] Chloride, External 103 98 - 107 [facility] CO2, External 27 21 - 32 [facility] Creatinine, External 0.9 0.6 - 1.3 [facility] Fasting?, External [facility] Potassium, External 4.1 3.5 - 5.1 [facility] Sodium, External 139 136 - 145 [facility] Total Protein, External 7.2 6.4 - 8.2 [facility] Bilirubin, Total, External 0.48 0.20 - 1.00 [facility] Blood specimen (specimen) 08/15/2017 Historical Provider CHEMISTRY & BLOOD GAS ORDERABLES [facility] * (ABNORMAL) HEMAGRAM AND DIFFERENTIAL (08/15/2017) WBC, External 3.4(A) 4.5 - 11.0 [facility] RBC, External 3.29(A) 4.00 - 5.20 [facility] Hemoglobin, External 11.8(A) 12.0 - 15.0 [facility] HCT, External 34.9(A) 36.0 - 46.0 [facility] MCV, External 106(A) 80 - 100 [facility] MCH, External 35.9(A) 26.0 - 34.0 [facility] MCHC, External 33.8 31.0 - 37.0 [facility] PLT, External 188 150 - 350 [facility] RDW-CV, External 13.2 11.5 - 14.5 [facility] Neutrophils, External 47.8 31.0 - 76.0 [facility] Lymphocytes, External 44.5(A) 24.0 - 44.0 [facility] Monocytes, External 6.2 2.0 - 11.0 [facility] Eosinophils, External 0.6(A) 1.0 - 4.0 [facility] Basophils, External 0.6 0.0 - 2.0 [facility] ABS Neutrophils, External 1.61 1.50 - 7.80 [facility] ABS Lymphs, External 1.50 1.10 - 4.80 [facility] ABS Monocytes, External 0.21 [facility] ABS Eosinophils, External 0.02 [facility] ABS Basophils, External 0.01 [facility] Blood specimen (specimen) 08/15/2017 Historical Provider PACKAGES & DNA ME OBE ORDERABLES [facility] documented in this encounter Visit Diagnoses Not on filedocumented in this encounter Additional Health Concerns Infection Onset Date Last Indicated Resolved Time R/O COVID-19 12/12/2023 12/12/2023 12/12/2023 15:3 5 EDT R/O COVID-19 01/08/2024 01/08/2024 01/08/2024 18:2 6 EDT R/O COVID-19 01/16/2024 01/16/2024 01/16/2024 17:5 0 EDT documented as of this encounter Care Teams Rn Complex Care Relationship Specialty Start Date End Date Linda Blancas MD [facility] [address] [place] [address] PCP - General 01/06/11 Adolfo Carreno MD [address] [place] [phone] General Surgery 04/26/19 Augustina Colin MD PhD [address] [place] [address] 2 [place] [phone] Medical Oncology 04/26/19 documented as of this encounter
--- OUTSIDE RECORDS SUMMARY | 2024-03-20 15:06 | XMS_ITS | Encounter Summary ---
Author Organization [facility] Address [address] [place] [address] Care Team Providers Care Field Service Poultry Technician Name Role Phone Linda Blancas MD Primary Care Provider [phone] Reason for Visit * Reason Onset Date Comments Appointment Related 08/19/2017 Encounter Details Date Type Department Care Team (Late st Contact Info) Description 08/19/2017 Telephone [facility] Center Hematology & Oncology - [facility] [address] [place] [address] Vanessa Rollins, CUSTOM WOOD STAIR BUILDER [address] [facility], Level [address] [place] [phone] Appointment Related Social History Tobacco [...] encounter Miscellaneous Notes * Telephone Encounter - Nirmala Sanchez - 08/19/2017 1425 EST Called Sammy we set up 09/01/17 at 2:40pm with Vanessa Rollins [employer]. documented in this encounter Plan of Treatment Upcoming Encounters Date Type Department Care Team (Late st Contact Info) Description 04/02/2024 10:30 EDT Appointment [facility] Interventional Radiology Unit [address] [place] [phone] 04/02/2024 15:15 EDT Office Visit [facility] Surgical Oncology - [address] [phone] Adolfo Carreno MD [address] [place] [phone] 04/05/2024 9:30 EDT Telemedicine [facility] - [facility] Palliative Care Services [address] [place] [address] [phone] Chichi Woods MD [address] [place] [address], [address] [phone] 04/11/2024 15:00 EDT Telemedicine [facility] Hematology & Oncology - [address] 289711 Alisson Carreon MD [address] [place] [address] 2 [place] [phone] 04/13/2024 13:30 EDT Appointment [facility] Hematology & Oncology - [address] [phone] 04/13/2024 14:00 EDT Appointment [facility] Hematology & Oncology - [address] [address] 04/16/2024 10:00 EST Telemedicine [facility] - [facility] Palliative Care Services [address] [place] [address] 095871 Chichi Woods MD [address] [place] [phone] 04/24/2024 9:00 EST Appointment [facility] Radiology CT Outpatient - [address] [address] 04/24/2024 11:00 EST Appointment [facility] Breast Imaging - [facility] S [address] [phone] 04/27/2024 12:00 EST Appointment [facility] Hematology & Oncology - [address] [phone] 05/02/2024 15:00 EST Telemedicine [facility] Hematology & Oncology - [address] 976161 Alisson Carreon MD [address] [place] [address], [facility], Level [address] [place] [phone] 05/04/2024 10:15 EST Ancillary Procedure [facility] Cardiology - [address] [place], [place] [phone] 05/04/2024 11:30 EST Appointment [facility] Hematology & Oncology - [address] [phone] 05/04/2024 12:00 EST Appointment [facility] Hematology & Oncology - [address] [phone] 06/12/2024 13:00 EST [facility]ment [facility] [address] [place], [place] 0566[address] documented as of this encounter Visit Diagnoses Not on filedocumented in this encounter Care Teams Field Service Poultry Technician Relationship Specialty Start Date End Date Linda Blancas MD [facility] [address] [place] [address] PCP - General 01/06/11 documented as of this encounter
--- OUTSIDE RECORDS SUMMARY | 2024-03-20 15:06 | XMS_ITS | Encounter Summary ---
Author Organization [facility] Address [address] [place] [address] Care Team Providers Care Toy Maker Name Role Phone Linda Blancas MD Primary Care Provider [phone] Reason for Visit * Reason Comments Follow-up breast reconstructio n Encounter Details Date Type Department Care Team (Late st Contact Info) Description 08/03/2017 11:00 EST Office Visit [facility] Plastic, Reconstructive & Cosmetic Surgery - [address], [address] [place], [place] [phone] Karen Singh PA-C [address] [facility] [address] [place] [address] Surgical follow-up care (Primary Dx) [...] Progress Notes * Karen Singh PA - 08/03/2017 1100 EST SUBJECTIVE: Sunshine Bernstein returns in follow up from excision of recurrent right breast cancer and V to Y flap reconstruction of right breast with placement of allograft and tissue expanderon 07/07/2017. No acute complaints of illness reported. She is doing great. OBJECTIVE: On examination, she is in no distress. Incision is healing well, without sign of infection or dehiscence. Near complete epithelialization of flap. No rash or erythema of skin of breast. IMPRESSION: Doing well; PO week 4. PLAN: Dr. Boss participated in care today. Skin is much improved since last visit. Likely first TE fill in two weeks time. Limitations on UE weight bearing to continue until week six. Light stretching exercises important to keep shoulder mobil. Follow up in 2 weeks time. TANK Dawn 08/04/2017 11:53 documented in this encounter Plan of Treatment Upcoming Encounters Date Type Department Care Team (Late st Contact Info) Description 04/02/2024 10:30 EDT Appointment [facility] Interventional Radiology Unit [address] [place] [phone] 04/02/2024 15:15 EDT Office Visit [facility] Surgical Oncology - [address] [phone] Adolfo Carreno MD 111 [facility], Level 2 [place] [phone] 04/05/2024 9:30 EDT Telemedicine [facility] - [facility] Palliative Care Services [address] [place] [address] [phone] Chichi Woods MD [address] [place] [address] [phone] 04/11/2024 15:00 EDT Telemedicine [facility] Hematology & Oncology [address] [address] Alisson Carreon MD [address] [place] [address], Level [address] [place] [phone] 04/13/2024 13:30 EDT Appointment [facility] Hematology & Oncology [address] 949851 04/13/2024 14:00 EDT Appointment [facility] Hematology & Oncology [address] [address] 04/16/2024 10:00 EST Telemedicine [facility] - [facility] Palliative Care Services [address] [place] [address] 937161 Chichi Woods MD [address] [place] [phone] 04/24/2024 9:00 EST Appointment [facility] Radiology CT Outpatient - [address] 253991 04/24/2024 11:00 EST Appointment [facility] Breast Imaging - [address] 730351 04/27/2024 12:00 EST Appointment [facility] Hematology & Oncology - [address] 175521 05/02/2024 15:00 EST Telemedicine [facility] Hematology & Oncology - [address] [phone] Alisson Carreon MD 111 [facility], Level [address] [place] [phone] 05/04/2024 10:15 EST Ancillary Procedure [facility] Cardiology - [address] [place], [place] [phone] 05/04/2024 11:30 EST Appointment [facility] Hematology & Oncology - [address] [phone] 05/04/2024 12:00 EST Appointment [facility] Hematology & Oncology [address] 160231 06/12/2024 13:00 EST Appointment [facility] Radiology CT - [address] [phone] documented as of this encounter Visit Diagnoses Diagnosis Surgical follow-up care- Primary Follow-up examination, following unspecified surgery documented in this encounter Care Teams Toy Maker Relationship Specialty Start Date End Date Linda Blancas MD [facility] [address] [place] [address] PCP - General 01/06/11 documented as of this encounter
--- OUTSIDE RECORDS SUMMARY | 2024-03-20 15:06 | XMS_ITS | Encounter Summary ---
Author Organization [facility] Address [address] [place] [address] Care Team Providers Care Art Glass Designer Name Role Phone Linda Blancas MD Primary Care Provider [phone] Reason for Visit * Reason Onset Date Comments Procedure 06/15/[address] Karla burton&Dr. Boss Medication Management 06/15/2017 IBrance & Letrozole Encounter Details Date Type Department Care Team (Late st Contact Info) Description 06/15/2017 Telephone [facility] Cancer Center Hematology & Oncology - [address] [address] Augustina Colin MD PhD Procedure (07.07.17 Dr. Carreno&Dr. Boss); Medication Management (IBrance & Letrozole) Social History Tobacco Use Types Packs/Day Years [...] Functional Status Response Date of Assess ment Because of a physical, menta l, or emotional condition, does this person have difficulty doing errands alone such as visiting a doctor's office or shopping? No 05/02/2017 Cognitive Status Response Date of Assessm ent Because of a physical, menta l, or emotional condition, does this person have serious difficulty concentrating, remembering, or making decisions? No 05/02/2017 documented as of this encounter Miscellaneous Notes * Telephone Encounter - Quita Rob RN - 06/16/2017 1332 EST After conferring with Dr Colin, Ms Pleitez has been advised to stop her ibrance now in preparation for her surgery. Pt will stop taking her ibrance tomorrow as she has already taken her dose today. She is aware that she can continue her letrozole. Ms Pleitez made aware she should hold her ibrance for 2 weeks post op prior to restarting. * Telephone Encounter - Lian Suh - 06/15/2017 1425 EST Reason for Call: Procedure (07.07.17 Dr. Carreno&Dr. Boss) and Medication Management (IBrance & Letrozole) Summary/Symptoms: Per patient, scheduled for surgery 07.07.[address] Carreno and Dr. Boss. Patient wondering if she needs to do anything with the medication IBrance and Letrozole. Please call patient to confirm. Lian Suh 06/15/2017 14:25 documented in this encounter Plan of Treatment Upcoming Encounters Date Type Department Care Team (Late st Contact Info) Description 04/02/2024 10:30 EDT Appointment [facility] Interventional Radiology Unit [address] [place], [place] 522351 04/02/2024 15:15 EDT Office Visit [facility] Surgical Oncology - [facility] [address] [place], [place] 365691 Adolfo Carreno MD 111 [facility], Level 2 [place] [phone] 04/05/2024 9:30 EDT Telemedicine [facility] - [facility] Palliative Care Services [address] [place] [address] [phone] Chichi Woods MD [address] [place] [address] [phone] 04/11/2024 15:00 EDT Telemedicine [facility] Hematology & Oncology [address] [phone] Alisson Carreon MD [address] [place] [address], Level [address] [place] [phone] 04/13/2024 13:30 EDT Appointment [facility] Hematology & Oncology [address] [phone] 04/13/2024 14:00 EDT Appointment [facility] Hematology & Oncology [address] [phone] 04/16/2024 10:00 EST Telemedicine [facility] - [facility] Palliative Care Services [address] [place] [address] 095121 Chichi Woods MD [address] [place] [address] [phone] 04/24/2024 9:00 EST Appointment [facility] Radiology CT Outpatient - [address] 479291 04/24/2024 11:00 EST Appointment [facility] Breast Imaging - [address] [phone] 04/27/2024 12:00 EST Appointment [facility] Hematology & Oncology - [address] [phone] 05/02/2024 15:00 EST Telemedicine [facility] Hematology & Oncology - [address] [phone] Alisson Carreon MD 111 [facility], Level [address] [place] [phone] 05/04/2024 10:15 EST Ancillary Procedure [facility] Cardiology - [address] [place], [place] [phone] 05/04/2024 11:30 EST Appointment [facility] Hematology & Oncology - [address] [phone] 05/04/2024 12:00 EST Appointment [facility] Hematology & Oncology - [address] [phone] 06/12/2024 13:00 EST Appointment [facility] Radiology CT - [address] [phone] documented as of this encounter Visit Diagnoses Not on filedocumented in this encounter Care Teams Art Glass Designer Relationship Specialty Start Date End Date Linda Blancas MD [facility] [address] [place] [address] PCP - General 01/06/11 documented as of this encounter
--- OUTSIDE RECORDS SUMMARY | 2024-03-20 15:06 | XMS_ITS | Encounter Summary ---
Author Organization [facility] Address [address] [place] [address] Care Team Providers Care [employer] T[employer] Buffer Name Role Phone Linda Blancas MD Primary Care Provider [phone] Reason for Referral * Surgery (Routine) - Closed Specialty Diagnoses / Procedures Referred By Contdayanna hearn Referred To Contact Plastic Surgery Diagnoses Metastatic breast cancer Procedures CHG VASCULAR FLOW IMAGING,NONCARDIAC DC BREAST RECONSTRUC W TISS EXPANDR DC IMPLNT BIO IMPLNT FOR SOFT TISSUE REINFORCEMENT DC MASTECTOMY, SIMPLE, COMPLETE DC BX/REMV,LYMPH NODE,DEEP AXILL DC INTRAOPERATIVE SENTINEL LYMPH NODE ID W DYE INJECTION DC INJ RADIOACTIVE TRACER FOR ID OF SENTINEL NODE DC EXC SKIN MALIG 1.1-2 CM TRUNK,ARM,LEG Tylor Boss MD FACS [address] [place] [address] [place] [phone] Tylor Boss MD FACS [address] [place] [address] [place] [phone] Referral ID Status Reason Start Date Expiration Date V isits Requested Visits Authorized [id number] Closed Specialty Services Required 05/11/2017 1 1 Question Answer Reason for Request: Right TE recon with alloderm and intraoperative infrared angiography Scheduled Surgery Date: 05/11/2017 Laterality: Right Location of Procedure: Main [place] OR/ Outpt Anesthesia: General Estimated Length of Procedure: 2h CPT Code: 18845, 53829, 68667 Co-Surgeon: Wai Encounter Details Date Type Department Care Team (Late st Contact Info) Description 05/11/2017 Orders Only [facility] Plastic, Reconstructive & Cosmetic Surgery - [address], [address] [place], [place] [address] Tylor Boss MD [address] [place] [phone] Metastatic breast cancer (CMS-HCC) (HCC-CMS) (Primary Dx) Social History Tobacco Use [...] No 05/02/2017 documented as of this encounter Plan of Treatment Upcoming Encounters Date Type Department Care Team (Late st Contact Info) Description 04/02/2024 10:30 EDT Appointment [facility] Interventional Radiology Unit [address] [place], [place] [address] 04/02/2024 15:15 EDT Office Visit [facility] Surgical Oncology - [facility] [address] [place], [place] [phone] Adolfo Carreno MD 111 [facility] [place], Level [address] [place] [phone] 04/05/2024 9:30 EDT Telemedicine [facility] - [facility] Palliative Care Services [address] [place], [place] 4485[address] Chichi Woods MD [address] [place] [address] [address] [place] [phone] 04/11/2024 15:00 EDT Telemedicine [facility] Hematology & Oncology [address] [phone] Alisson Carreon MD [address] [place] [address], Level [address] [place] [phone] 04/13/2024 13:30 EDT Appointment [facility] Hematology & Oncology [address] 316871 04/13/2024 14:00 EDT Appointment [facility] Hematology & Oncology [address] [id number] 04/16/2024 10:00 EST Telemedicine [facility] - [facility] Palliative Care Services [address] [place] [address] [phone] Chichi Woods MD [address] [place] [phone] 04/24/2024 9:00 EST Appointment [facility] Radiology CT Outpatient - [address] [id number] 04/24/2024 11:00 EST Appointment [facility] Breast Imaging - [facility] S [address] [phone] 04/27/2024 12:00 EST Appointment [facility] Hematology & Oncology - [address] [id number] 05/02/2024 15:00 EST Telemedicine [facility] Hematology & Oncology - [address] [phone] Alisson Carreon MD 111 [facility], [facility], Level [address] [place] [phone] 05/04/2024 10:15 EST Ancillary Procedure [facility] Cardiology - [place] [address] [place] [address] 05/04/2024 11:30 EST Appointment [facility] Hematology & Oncology - [address] [phone] 05/04/2024 12:00 EST Appointment [facility] Hematology & Oncology [address] [phone] 06/12/2024 13:00 EST Appointment [facility] Radiology CT - [facility] [address] [place], [place] [phone] Scheduled Referrals Name Type Priority Associated Diagnoses Orde r Schedule AMB CONS/FOLLOW UP SURGERY SCHED ORD Outpatient Referral Routine Metastatic breast cancer (CMS-HCC) (HCC-CMS) Ordered: 05/11/2017 documented as of this encounter Visit Diagnoses Diagnosis Metastatic breast cancer- Primary documented in this encounter Care Teams [employer] Relationship Specialty Start Date End Date Linda Blancas MD [address] [place] [address] PCP - General 01/06/11 documented as of this encounter
--- OUTSIDE RECORDS SUMMARY | 2024-03-20 15:06 | XMS_ITS | Encounter Summary ---
Author Organization [facility] Address [address] [place] [address] Care Team Providers Care Embroidery Supervisor Name Role Phone Linda Blancas MD Primary Care Provider Reason for Visit * Reason Onset Date Comments Appointment Related 06/24/2017 arrival time & NPO instructions sx 07/07 Encounter Details Date Type Department Care Team (Late st Contact Info) Description 06/24/2017 Telephone [facility] Plastic, Reconstructive & Cosmetic Surgery - [address], [address] [place] [address] [phone] Tylor Boss MD [address] [phone] Appointment Related (arrival time & NPO instructions sx 07/07) Social History Tobacco Use Types Packs/Day Years [...] encounter Miscellaneous Notes * Telephone Encounter - Chantelle, Dasha - 06/24/2017 0813 EST Please check in at the 3rd floor registration department located at [address] [place] [phone] on 07/07/2017 at 6:30am Your surgery will start at 8:30am . No solid food after midnight on Tuesday07/06/2017 . Clear liquids up until 4:30am on day of surgery . ? Take Medications as directed with a small sip of water ? Removal all jewelry prior to arriving at the hospital ? Shower with antibacterial soap the night prior and morning of your surgery ? You will need a bus driver/monitor to transport you home. o (Bus, Taxi, Uber are not acceptable transportation) documented in this encounter Plan of Treatment Upcoming Encounters Date Type Department Care Team (Late st Contact Info) Description 04/02/2024 10:30 EDT Appointment [facility] Interventional Radiology Unit [address] [place] [address] [phone] 04/02/2024 15:15 EDT Office Visit [facility] Surgical Oncology - [address] [phone] Adolfo Carreno MD 111 [facility], Level [address] [place] [phone] 04/05/2024 9:30 EDT Telemedicine [facility] - [facility] Palliative Care Services [address] [place] [address] [phone] Chichi Woods MD [address] [place] [address], [place] [address] [place] [phone] 04/11/2024 15:00 EDT Telemedicine [facility] Hematology & Oncology - [address] [phone] Alisson Carreon MD [address] [place] [address] 2 [place] [phone] 04/13/2024 13:30 EDT Appointment [facility] Hematology & Oncology - [address] [id number] 04/13/2024 14:00 EDT Appointment [facility] Hematology & Oncology - [address] [phone] 04/16/2024 10:00 EST Telemedicine [facility] - [facility] Palliative Care Services [address] [place] [address] [phone] Chichi Woods MD [address] [place] [phone] 04/24/2024 9:00 EST Appointment [facility] Radiology CT Outpatient - [address] [id number] 04/24/2024 11:00 EST Appointment [facility] Breast Imaging - [facility] S [address] [id number] 04/27/2024 12:00 EST Appointment [facility] Hematology & Oncology - [address] [id number] 05/02/2024 15:00 EST Telemedicine [facility] Hematology & Oncology - [address] 469071 Alisson Carreon MD [address] [place] [address], [facility] [address] [place] [phone] 05/04/2024 10:15 EST Ancillary Procedure [facility] Cardiology - [address] [place], [place] [phone] 05/04/2024 11:30 EST Appointment [facility] Hematology & Oncology [address] [address] 05/04/2024 12:00 EST Appointment [facility] Hematology & Oncology [address] [address] 06/12/2024 13:00 EST Appointment [facility] Center Radiology CT - [address] [address] documented as of this encounter Visit Diagnoses Not on filedocumented in this encounter Care Teams Embroidery Supervisor Relationship Specialty Start Date End Date Linda Blancas MD [facility] [address] [place] [address] PCP - General 01/06/11 documented as of this encounter
--- OUTSIDE RECORDS SUMMARY | 2024-03-20 15:06 | XMS_ITS | Encounter Summary ---
Author Organization [facility] Address [address] [place] [address] Care Team Providers Care Internal Grinder Tender Name Role Phone Linda Blancas MD Primary Care Provider [phone] Reason for Visit * Reason Comments Follow-up sx 07/07 Encounter Details Date Type Department Care Team (Latest Contact Info) Description 07/15/2017 10:40 EST Office Visit [facility] Plastic, Reconstructive & Cosmetic Surgery - [address], [address] [place], [place] [phone] Deana Shaw, PA-C [address] [place] [phone] Surgical follow-up care (Primary Dx) Social [...] Progress Notes * Deana Shaw PA - 07/15/2017 1040 EST SUBJECTIVE: Sunshine Pleitez returns in followup from excision of recurrent right breast cancer and V to Y flap reconstruction of right breast with 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 She is doing well. Pain control is adequate without pain medication. Drain output is 8ccand 13cc daily for the past two days, respectively. No acute complaints. OBJECTIVE: On examination, she is in no distress. Her incision is healing well, without sign of infection or dehiscence. There is a small area of superficial skin breakdown/epidermolysis at the apex of v-y. This area appears well perfused. No surrounding erythema or induration. Drain in place and functioning. IMPRESSION: Doing well; POD #8. PLAN: Drain removed and site covered with bacitracin and new bandaid to be changed daily. Telfa placed over area of breakdown. Patient given more to place over this area for protection. Follow up in one week for recheck or earlier if there are any concerns. Signs of infection or seroma reviewed with patient and her . TANK Ryan documented in this encounter Plan of Treatment Upcoming Encounters Date Type Department Care Team (Late st Contact Info) Description 04/02/2024 10:30 EDT Appointment [facility] Interventional Radiology Unit [address] [place] [address] [phone] 04/02/2024 15:15 EDT Office Visit [facility] Surgical Oncology - [facility] [address] [place], [place] [phone] Adolfo Carreno MD 111 [facility] Level [address] [place] [phone] 04/05/2024 9:30 EDT Telemedicine [facility] Palliative Care Services [address] [place] [address] 055791 Chichi Woods MD [address] [place] [phone] 04/11/2024 15:00 EDT Telemedicine [facility] Hematology & Oncology - [address] [address] Alisson Carreon MD [address] [place] [address] Level [address] [place] [phone] 04/13/2024 13:30 EDT Appointment [facility] Hematology & Oncology - [address] [address] 04/13/2024 14:00 EDT Appointment [facility] Hematology & Oncology [address] [address] 04/16/2024 10:00 EST Telemedicine [facility] Palliative Care Services [address] [place] [address] [phone] Chichi Woods MD [address] [place] [phone] 04/24/2024 9:00 EST Appointment [facility] Radiology CT Outpatient - [address] [id number] 04/24/2024 11:00 EST Appointment [facility] Breast Imaging - [address] [address]1981 04/27/2024 12:00 EST Appointment [facility] Hematology & Oncology - [address] [address] 05/02/2024 15:00 EST Telemedicine [facility] Hematology & Oncology [address] 173491 Alisson Carreon MD [address] [place] [address], Level [address] [place] [phone] 05/04/2024 10:15 EST Ancillary Procedure [facility] Cardiology - [address] [place] [address] 05/04/2024 11:30 EST Appointment [facility] Hematology & Oncology [address] 801661 05/04/2024 12:00 EST Appointment [facility] Hematology & Oncology [address] [id number] 06/12/2024 13:00 EST Appointment [facility] Radiology CT - [address] [phone] documented as of this encounter Visit Diagnoses Diagnosis Surgical follow-up care- Primary Follow-up examination, following unspecified surgery documented in this encounter Discontinued Medications Medication Sig Discontinue Reason Start Date End Da te oxyCODONE-acetaminophen (PERCOCET) 5-325 mg per tablet Take 1-2 Tabs by mouth every 4 hours as needed for Pain. Daily Max: 12 Tabs 07/08/2017 07/15/2017 documented as of this encounter Care Teams Internal Grinder Tender Relationship Specialty Start Date End Date Linda Blancas MD [facility] [address] [place] [address] PCP - General 01/06/11 documented as of this encounter
--- OUTSIDE RECORDS SUMMARY | 2024-03-20 15:06 | XMS_ITS | Encounter Summary ---
Author Organization [facility] Address [address] [place] [address] Care Team Providers Care Highway Maintenance Technician Name Role Phone Linda Blancas MD Primary Care Provider [phone] Reason for Visit * Reason Comments Tissue Guest Advisor Fill te fill Encounter Details Date Type Department Care Team (Late st Contact Info) Description 08/17/2017 11:40 EST Office Visit [facility] Plastic, Reconstructive & Cosmetic Surgery - [address], [address] [place], [place] [phone] Karen Singh PA-C [address] [place] [address] [place] [phone] Surgical follow-up care (Primary Dx) Social [...] Progress Notes * Karen Singh PA - 08/17/2017 1140 EST SUBJECTIVE: Sunshine Bernstein returns in follow up from excision of recurrent right breast cancer and V to Y flap reconstruction of right breast with placement of allograft and tissue expanderon 07/07/2017. No acute complaints of illness reported. She is doing great. Today we will perform a first TE fill. OBJECTIVE: On examination, she is in no distress. Incision is healing well, without sign of infection or dehiscence. No rash or erythema of skin of breast. IMPRESSION: Doing well; PO week 6. PLAN: Today after receiving written consent, TE fill performed. Port was located with a magnet and marked. Sterile gloves donned and right breast cleansed with Chlorhexidine. Using a closed loop and sterile normal saline, 50 cc was entered into the TE. Site was cleansed with alcohol wipe and a Band-Aid was placed. Band-Aid to be removed tomorrow. Follow up in 2- 3 weeks time or sooner as needed. TANK Dawn 08/17/2017 16:33 documented in this encounter Plan of Treatment Upcoming Encounters Date Type Department Care Team (Late st Contact Info) Description 04/02/2024 10:30 EDT Appointment [facility] Interventional Radiology Unit [address] [place], [place] [phone] 04/02/2024 15:15 EDT Office Visit [facility] Surgical Oncology - [facility] [address] [place] [address] Adolfo Carreno MD 111 [facility], Level [address] [place] [phone] 04/05/2024 9:30 EDT Telemedicine [facility] Palliative Care Services [address] [place] [address] [phone] Chichi Woods MD [address] [place] [phone] 04/11/2024 15:[address] [facility] Hematology & Oncology - [address] [address] Alisson Carreon MD [address] [place] [address], Level [address] [place] [phone] 04/13/2024 13:[address] [facility] Hematology & Oncology - [address] [address] 04/13/2024 14:[address] [facility] Hematology & Oncology [address] [address] 04/16/2024 10:00 EST Telemedicine [facility] Palliative Care Services [address] [place] [address] [phone] Chichi Woods MD [address] [place] [phone] 04/24/2024 9:00 EST Appointment [facility] Radiology CT Outpatient - [address] [id number] 04/24/2024 11:00 EST Appointment [facility] Breast Imaging - [address] [id number] 04/27/2024 12:[address] [facility] Hematology & Oncology - [address] [address] 05/02/2024 15:[address] [facility] Hematology & Oncology [address] 647121 Alisson Carreon MD [address] [place] [address], Level [address] [place] [phone] 05/04/2024 10:15 EST Ancillary Procedure [facility] Cardiology - [address] [place] [address] 05/04/2024 11:[address] [facility] Hematology & Oncology [address] 884131 05/04/2024 12:[address] [facility] Hematology & Oncology [address] 612361 06/12/2024 13:00 EST Appointment [facility] Radiology CT - [address] [phone] documented as of this encounter Visit Diagnoses Diagnosis Surgical follow-up care- Primary Follow-up examination, following unspecified surgery documented in this encounter Care Teams Highway Maintenance Technician Relationship Specialty Start Date End Date Linda Blancas MD [facility] [address] [place] [address] PCP - General 01/06/11 documented as of this encounter
--- OUTSIDE RECORDS SUMMARY | 2024-03-20 15:06 | XMS_ITS | Encounter Summary ---
Author Organization [facility] Address [address] [place] [address] Care Team Providers Care Machine Feed Operator Name Role Phone Linda Blancas MD Primary Care Provider [phone] Encounter Details Date Type Department Care Team (Late st Contact Info) Description 05/02/2017 Phlebotomy Only [facility] - [facility] [address] [place] [address] Arc Air Operator, Outpatient Metastatic breast cancer (CMS-HCC) (HCC-CMS) (Primary Dx) [...] Appointment [facility] Interventional Radiology Unit [address] [place] [address] 04/02/2024 15:15 EDT Office Visit [facility] Surgical Oncology - [address] 079611 Adolfo Carreno MD [address] [place] [address] [phone] 04/05/2024 9:30 EDT Telemedicine [facility] Palliative Care Services [address] [place] [address] [phone] Chichi Woods MD [address] [place] [address] [phone] 04/11/2024 15:00 EDT Telemedicine [facility] Hematology & Oncology - [address] 646651 Alisson Carreon MD [address] [place] [address] [phone] 04/13/2024 13:30 EDT Appointment [facility] Hematology & Oncology - [address] [phone] 04/13/2024 14:00 EDT Appointment [facility] Hematology & Oncology - [address] [address] 04/16/2024 10:00 EST Telemedicine [facility] Palliative Care Services [address] [place] [address] [phone] Chichi Woods MD [address] [place] [address] [phone] 04/24/2024 9:00 EST Appointment [facility] Radiology CT Outpatient - [address] 580851 04/24/2024 11:00 EST Appointment [facility] Breast Imaging - [address] [place], [place] 871621 04/27/2024 12:00 EST Appointment [facility] Hematology & Oncology [address] 927271 05/02/2024 15:00 EST Telemedicine [facility] Hematology & Oncology [address] 618931 Alisson Carreon MD [address] [place] [address], Level 2 [place] [phone] 05/04/2024 10:15 EST Ancillary Procedure [facility] Cardiology [place] [address] 05/04/2024 11:30 EST Appointment [facility] Hematology & Oncology [address] 751111 05/04/2024 12:00 EST Appointment [facility] Hematology & Oncology [address] 815981 06/12/2024 13:00 EST Appointment [facility] Radiology CT - [address] [id number] documented as of this encounter Procedures Procedure Name Priority Date/Time Associated Diagnosis Comments COMPLETE BLOOD COUNT AND DIFFERENTIAL STAT 05/02/2017 13:02 EST Metastatic breast cancer ([facility]-HCC) (HCC-CMS) COMPREHENSIVE METABOLIC PANEL (CMP) STAT 05/02/2017 13:02 EST Metastatic breast cancer (CMS-HCC) (HCC-CMS) documented in this encounter Results * (ABNORMAL) HEMAGRAM AND DIFFERENTIAL (05/02/2017 13:02 EST) WBC 3.88(L) 4.0 - 12.4 K/cmm 05/02/2017 13:23 [facility] RBC 3.34(L) 3.86 - 5.04 M/cmm 05/02/2017 13:23 [facility] Hemoglobin 12.7 11.6 - 15.2 gm/dl 05/02/2017 13:23 [facility] HCT 35.5 34.9 - 44.4 % 05/02/2017 13:23 [facility] MCV 106(H) 81 - 98 fl 05/02/2017 13:23 [facility] MCH 38.0(H) 26.7 - 33.3 pg 05/02/2017 13:23 [facility] MCHC 35.8 32.1 - 35.9 gm/dl 05/02/2017 13:23 [facility] RDW-CV 11.9 <14.7 % 05/02/2017 13:23 [facility] RDW-SD 46.1 <50.4 fl 05/02/2017 13:23 [facility] PLT 148 141 - 377 K/cmm 05/02/2017 13:23 [facility] MPV 9.9 9.5 - 12.7 fl 05/02/2017 13:23 [facility] % Neutrophils 38.9 % 05/02/2017 13:23 [facility] % Lymphocytes 51.5 % 05/02/2017 13:23 [facility] % Monocytes 7.5 % 05/02/2017 13:23 [facility] % Eosinophils 0.8 % 05/02/2017 13:23 [facility] % Basophils 1.0 % 05/02/2017 13:23 [facility] % Immature Grans 0.3 % 05/02/2017 13:23 [facility] ABS Neutrophils 1.51(L) 2.20 - 8.85 K/cmm 05/02/2017 13:23 [facility] ABS Lymphs 2.00 1.09 - 3.30 K/cmm 05/02/2017 13:23 [facility] ABS Monocytes 0.29 0.1 - 0.8 K/cmm 05/02/2017 13:23 [facility] ABS Eosinophils 0.03 0.03 - 0.61 K/cmm 05/02/2017 13:23 [facility] ABS Basophils 0.04 0.01 - 0.11 K/cmm 05/02/2017 13:23 [facility] ABS Immature Grans 0.01 0 - 0.06 K/cmm 05/02/2017 13:23 [facility] Type of Diff: Automated 05/02/2017 13:23 [facility] Blood specimen (specimen) BLOOD SPECIMEN / Unknown 05/02/2017 13:02 EST 05/02/2017 13:10 EST Augustina Colin MD PhD PACKAGES & DNA PROBE ORDERABLES Performing Organization Address City/State/[facility] Co de Phone Number [facility] [address] [place] [address] * COMPREHENSIVE METABOLIC PANEL (CMP) (05/02/2017 13:02 EST) Potassium 4.2 3.5 - 5.0 mEq/L 05/02/2017 13:52 [facility] Sodium 144 136 - 145 mEq/L 05/02/2017 13:52 [facility] Chloride 106 96 - 110 mEq/L 05/02/2017 13:52 [facility] CO2 27 22 - 32 mEq/L 05/02/2017 13:52 [facility] Total Alkaline Phosphatase 68 38 - 126 U/L 05/02/2017 13:52 [facility] Bilirubin, Total 0.6 <1.4 mg/dl 05/02/20 17 13:52 [facility] AST 21 15 - 46 U/L 05/02/2017 13:52 [facility] ALT 29 <53 U/L 05/02/2017 13:52 [facility] Albumin 4.1 3.4 - 4.9 g/dl 05/02/2017 13:52 [facility] Total Protein 6.7 6.3 - 8.2 g/dl 05/02/2017 13:52 [facility] Creatinine 0.81 0.52 - 1.04 mg/dl 05/02/2017 13:52 [facility] GFR, Calculated 82 >60 ml/min/1.7 3m2 05/02/2017 13:52 [facility] Comment: eGFR calculated using CKD-EPI equation for non Americans. Multiply eGFR by 1.16 for Americans. BUN 22 10 - 26 mg/dl 05/02/2017 13:52 [facility] Calcium 9.1 8.5 - 10.5 mg/dl 05/02/2017 13:52 [facility] Calculated Calcium 9.0 8.5 - 10.5 mg/dl 05/02/2017 13:52 [facility] Glucose, Serum 80 70 - 100 mg/dl 05/02/2017 13:52 [facility] Fasting? No 05/02/2017 13:03 [facility] Blood specimen (specimen) BLOOD SPECIMEN / Unknown 05/02/2017 13:02 EST 05/02/2017 13:10 EST Augustina Colin MD PhD CHEMISTRY & BLOOD GA S ORDERABLES Performing Organization Address City/State/[facility] Co de Phone Number [facility] [address] [place] [address] documented in this encounter Visit Diagnoses Diagnosis Metastatic breast cancer- Primary documented in this encounter Care Teams Machine Feed Operator Relationship Specialty Start Date End Date Linda Blancas MD [address] [place] [address] [address] [place] [address] PCP - General 01/06/11 documented as of this encounter
--- OUTSIDE RECORDS SUMMARY | 2024-03-20 15:06 | XMS_ITS | Encounter Summary ---
Author Organization [facility] Address [address] [place] [address] Care Team Providers Care Substitute Bus Driver Name Role Phone Linda Blancas MD Primary Care Provider [phone] Reason for Visit * Reason Onset Date Comments Other 07/27/2017 Encounter Details Date Type Department Care Team (Late st Contact Info) Description 07/27/2017 Telephone [facility] Plastic, Reconstructive & Cosmetic Surgery - [address], [address] [place] [address] Tylor Boss MD [address] [phone] Other Social History Tobacco Use [...] encounter Miscellaneous Notes * Telephone Encounter - Komal Huang RN - 07/27/2017 1055 EST Images from the original note were not included. Spoke with Sunshine after sharing picture sent by her with Dr. Boss. Continue with bacitracin andtelfa to wound daily. There is no visible pus or suture. Do not wipe or debride, just place bacitracin on area and cover daily. The black area may be debrided in clinic at visit on 08/05 if it is still there. Reassured her healing is normal and within expected parameters. She was encouraged to call for any other concerns or questions. * Telephone Encounter - Jose Guerrero - 07/27/2017 0937 EST Stitch sticking out, wondering what to do about that. E-mail address provided for Komal to provide photos. documented in this encounter Plan of Treatment Upcoming Encounters Date Type Department Care Team (Late st Contact Info) Description 04/02/2024 10:30 EDT Appointment [facility] Interventional Radiology Unit [address] [place], [place] 584311 04/02/2024 15:15 EDT Office Visit [facility] Surgical Oncology - [facility] [address] [place], [place] 854171 Adolfo Carreno MD 111 [facility], Level 2 [place] [phone] 04/05/2024 9:30 EDT Telemedicine [facility] - [facility] Palliative Care Services [address] [place], [place] 854311 Chichi Woods MD [address] [place] [address] [phone] 04/11/2024 15:00 EDT Telemedicine [facility] Hematology & Oncology [address] 961221 Alisson Carreon MD [address] [place] [address], Level [address] [place] [phone] 04/13/2024 13:30 EDT Appointment [facility] Hematology & Oncology [address] [phone] 04/13/2024 14:00 EDT Appointment [facility] Hematology & Oncology [address] 532141 04/16/2024 10:00 EST Telemedicine [facility] - [facility] Palliative Care Services [address] [place] [address] 294631 Chichi Woods MD [address] [place] [address] [phone] 04/24/2024 9:00 EST Appointment [facility] Radiology CT Outpatient - [address] [id number] 04/24/2024 11:00 EST Appointment [facility] Breast Imaging - [facility] [address] 152451 04/27/2024 12:00 EST Appointment [facility] Hematology & Oncology - [address] 478501 05/02/2024 15:00 EST Telemedicine [facility] Hematology & Oncology - [address] 306561 Alisson Carreon MD 111 [facility], Level 2 [place] [phone] 05/04/2024 10:15 EST Ancillary Procedure [facility] Cardiology - [address] [place], [place] [phone] 05/04/2024 11:30 EST Appointment [facility] Hematology & Oncology - [address] 560221 05/04/2024 12:00 EST Appointment [facility] Hematology & Oncology - [address] [phone] 06/12/2024 13:00 EST Appointment [facility] Radiology CT - [address] 896651 documented as of this encounter Visit Diagnoses Not on filedocumented in this encounter Care Teams Substitute Bus Driver Relationship Specialty Start Date End Date Linda Blancas MD [facility] [address] [place] [address] PCP - General 01/06/11 documented as of this encounter
--- OUTSIDE RECORDS SUMMARY | 2024-03-20 15:06 | XMS_ITS | Encounter Summary ---
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 She has been doing well since her last visit and denies fever, redness over sheetmetal trades worker or pain. On physical examination today the [...] system the port was accessed and the sheetmetal trades worker filled with 75 cc of injectable saline.?? The patient tolerated the procedure well.?? Access site was dressed with a spot bandaid to be removed tomorrow.?? Totals were recorded on the flow sheet.?? Signs and symptoms of infection werediscussed. She will follow up in 2-3 weeks. TANK Ryan documented in this encounter Plan of Treatment Upcoming Encounters Date Type Department Care Team (Late st Contact Info) Description 04/02/2024 10:30 EDT Appointment [facility] Interventional Radiology Unit [address] [place] [address] 04/02/2024 15:15 EDT Office Visit [facility] Surgical Oncology - [facility] [address] [place], [place] 145471 Adolfo Carreno MD 111 [facility], Level 2 [place] [phone] 04/05/2024 9:30 EDT Telemedicine [facility] Palliative Care Services [address] [place] [address] [phone] Chichi Woods MD [address] [place] [address] [phone] 04/11/2024 15:00 EDT Telemedicine [facility] Hematology & Oncology - [address] 888171 Alisson Carreon MD [address] [place] [address], Level 2 [place] [phone] 04/13/2024 13:30 EDT Appointment [facility] Hematology & Oncology - [address] [phone] 04/13/2024 14:00 EDT Appointment [facility] Hematology & Oncology [address] 136311 04/16/2024 10:00 EST Telemedicine [facility] Palliative Care Services [address] [place] [address] [phone] Chichi Woods MD [address] [place] [address] [phone] 04/24/2024 9:00 EST Appointment [facility] Radiology CT Outpatient - [address] [id number] 04/24/2024 11:00 EST Appointment [facility] Breast Imaging - [address] 351851 04/27/2024 12:00 EST Appointment [facility] Hematology & Oncology - [address] 057581 05/02/2024 15:00 EST Telemedicine [facility] Hematology & Oncology [address] 327471 Alisson Carreon MD [address] [place] [address], Level 2 [place] [phone] 05/04/2024 10:15 EST Ancillary Procedure [facility] Cardiology - [address] [place] [address] 05/04/2024 11:30 EST Appointment [facility] Hematology & Oncology [address] [phone] 05/04/2024 12:00 EST Appointment [facility] Hematology & Oncology [address] 482881 06/12/2024 13:00 EST Appointment [facility] Radiology CT - [address] [phone] documented as of this encounter Visit Diagnoses Diagnosis Surgical follow-up care- Primary Follow-up examination, following unspecified surgery documented in this encounter Care Teams Drug Purchaser Relationship Specialty Start Date End Date Linda Blancas MD [facility] [address] [place] [address] PCP - General 01/06/11 documented as of this encounter
--- OUTSIDE RECORDS SUMMARY | 2024-03-20 15:06 | XMS_ITS | Encounter Summary ---
Author Organization [facility] Address [address] [place] [address] Care Team Providers Care Social Security Specialist Name Role Phone Linda Blancas MD Primary Care Provider Encounter Details Date Type Department Care Team (Late st Contact Info) Description 07/15/2017 Results Only Imaging [facility] Surgical Oncology - [address] [phone] Adolfo Carreno MD [address] [place] [address], Level 2 [place] [phone] Social History Tobacco Use Types [...] Appointment [facility] Interventional Radiology Unit [address] [place] [address] 04/02/2024 15:15 EDT Office Visit [facility] Surgical Oncology [address] 103841 Adolfo Carreno MD [address] [place] [address] [phone] 04/05/2024 9:30 EDT Telemedicine [facility] Palliative Care Services [address] [place] [address] [phone] Chichi Woods MD [address] [place] [address] [phone] 04/11/2024 15:00 EDT Telemedicine [facility] Hematology & Oncology [address] 851661 Alisson Carreon MD [address] [place] [address] [phone] 04/13/2024 13:30 EDT Appointment [facility] Hematology & Oncology [address] [phone] 04/13/2024 14:00 EDT Appointment [facility] Hematology & Oncology [address] 321241 04/16/2024 10:00 EST Telemedicine [facility] Palliative Care Services [address] [place], [place] 066121 Chichi Woods MD [address] [place] [address], [address] [phone] 04/24/2024 9:00 EST Appointment [facility] Radiology CT Outpatient - [address] 204391 04/24/2024 11:00 EST Appointment [facility] Breast Imaging - [facility] [address] [place] [address] [place], [place] 455721 04/27/2024 12:00 EST Appointment [facility] Hematology & Oncology - [address] 741471 05/02/2024 15:00 EST Telemedicine [facility] Hematology & Oncology - [address] 063261 Alisson Carreon MD [address] [place] [address], Level 2 [place] [phone] 05/04/2024 10:15 EST Ancillary Procedure [facility] Cardiology - [address] [place] [address] 05/04/2024 11:30 EST Appointment [facility] Hematology & Oncology - [address] [phone] 05/04/2024 12:00 EST Appointment [facility] Hematology & Oncology - [address] [phone] 06/12/2024 13:00 EST Appointment [facility] Radiology CT - [address] [phone] documented as of this encounter Visit Diagnoses Not on filedocumented in this encounter Care Teams Social Security Specialist Relationship Specialty Start Date End Date Linda Blancas MD [facility] [address] [place] [address] PCP - General 01/06/11 documented as of this encounter
--- OUTSIDE RECORDS SUMMARY | 2024-03-20 15:06 | XMS_ITS | Encounter Summary ---
Author Organization Health system Address [address] [place] [address] Care Team Providers Care Med Admin Name Role Phone Linda Blancas MD Primary Care Provider [phone] Reason for Visit * Reason Onset Date Comments Appointment Related 09/08/2017 CT on 10/12 Encounter Details Date Type Department Care Team (Late st Contact Info) Description 09/08/[address] [facility] Hematology & Oncology - [facility] [address] [place] [address] Nadeen Blood, PANitaC [address] [facility], Level 2 [place] [phone] Appointment Related (CT on 10/12) Social History Tobacco Use Types Packs/Day Years [...] Miscellaneous Notes * Telephone Encounter - Melyssa Barros - 09/08/2017 1315 EDT Called and spoke w/ pt to relay following appt info: On 10/12/17, check in @3rd floor reg @9:30AM for CT @10:00AM. Pt instructed to push clear, eat lite. Pt assured this would leave plenty of time for 11:00Am appt w/ Karen Singh. Confirmed her appt w/ Fadius on same day as well @2:30PM. Pt agreeable w/ all info shared and very thankful for coordination. documented in this encounter Plan of Treatment Upcoming Encounters Date Type Department Care Team (Late st Contact Info) Description 04/02/2024 10:30 EDT Appointment [facility] Interventional Radiology Unit [address] [place] [address] 04/02/2024 15:15 EDT Office Visit [facility] Surgical Oncology - [address] [phone] Adolfo Carreno MD [address] [facility], Level 2 [place] [phone] 04/05/2024 9:30 EDT Telemedicine [facility] Palliative Care Services [address] [place], [place] 122881 Chichi Woods MD 111 [facility], [address] [place] [phone] 04/11/2024 15:00 EDT Telemedicine [facility] Hematology & Oncology - [address] 583151 Alisson Carreon MD [address] [place] [address] 2 [place] [phone] 04/13/2024 13:30 EDT Appointment [facility] Hematology & Oncology - [address] [phone] 04/13/2024 14:00 EDT Appointment [facility] Hematology & Oncology [address] [phone] 04/16/2024 10:00 EST Telemedicine [facility] - [facility] Palliative Care Services [address] [place] [address] Chichi Woods MD [address] [place] [address] [phone] 04/24/2024 9:00 EST Appointment [facility] Radiology CT Outpatient - [address] [id number] 04/24/2024 11:00 EST Appointment [facility] Breast Imaging - [address] [id number] 04/27/2024 12:00 EST Appointment [facility] Hematology & Oncology - [address] 465031 05/02/2024 15:00 EST Telemedicine [facility] Hematology & Oncology [address] 470201 Alisson Carreon MD [address] [place] [address], [facility] 2 [place] [phone] 05/04/2024 10:15 EST Ancillary Procedure [facility] Cardiology - [place] [address] 05/04/2024 11:30 EST Appointment [facility] Hematology & Oncology [address] 156511 05/04/2024 12:00 EST Appointment [facility] Hematology & Oncology [address] [phone] 06/12/2024 13:00 EST Appointment [facility] Radiology CT - [address] [phone] documented as of this encounter Visit Diagnoses Not on filedocumented in this encounter Care Teams Med Admin Relationship Specialty Start Date End Date Linda Blancas MD [facility] [address] [place] [address] PCP - General 01/06/11 documented as of this encounter
--- OUTSIDE RECORDS SUMMARY | 2024-03-20 15:06 | XMS_ITS | Encounter Summary ---
Author Organization [facility] Address [address] [place] [address] Care Team Providers Care Baseball Coach Name Role Phone Linda Blancas MD Primary Care Provider [phone] Reason for Visit * Reason Onset Date Comments Appointment Related 07/27/2017 Encounter Details Date Type Department Care Team (Late st Contact Info) Description 07/27/2017 Telephone [facility] Hematology & Oncology - [facility] [address] [place] [address] Augustina Colin MD PhD Appointment Related Social History Tobacco Use [...] encounter Miscellaneous Notes * Telephone Encounter - Anna Wang - 07/27/2017 0909 EST Called and spoke to pt and let her know that we have move todays appt to 08/[address] Colin. Pt agreed to appts documented in this encounter Plan of Treatment Upcoming Encounters Date Type Department Care Team (Late st Contact Info) Description 04/02/2024 10:30 EDT Appointment [facility] Interventional Radiology Unit [address] [place] [address] [id number] 04/02/2024 15:15 EDT Office Visit [facility] Surgical Oncology - [address] [phone] Adolfo Carreno MD [address] [place] [address] 2 [place] [phone] 04/05/2024 9:30 EDT Telemedicine [facility] Palliative Care Services [address] [place] [address] [phone] Chichi Woods MD [address] [place] [phone] 04/11/2024 15:00 EDT Telemedicine [facility] Hematology & Oncology [address] [phone] Alisson Carreon MD [address] [place] [address] 2 [place] [phone] 04/13/2024 13:30 EDT Appointment [facility] Hematology & Oncology [address] 187491 04/13/2024 14:00 EDT Appointment [facility] Hematology & Oncology - [address] [address] 04/16/2024 10:00 EST Telemedicine [facility] - [facility] Palliative Care Services [address] [place] [address] Chichi Woods MD [address] [place] [address], [address] [phone] 04/24/2024 9:00 EST Appointment [facility] Radiology CT Outpatient - [address] [address] 04/24/2024 11:00 EST Appointment [facility] Breast Imaging - [facility] [address] [place] [address] [place], [place] 885121 04/27/2024 12:00 EST Appointment [facility] Hematology & Oncology - [address] [phone] 05/02/2024 15:00 EST Telemedicine [facility] Hematology & Oncology - [address] [address] Alisson Carreon MD [address] [place] [address], Level 2 [place] [phone] 05/04/2024 10:15 EST Ancillary Procedure [facility] Cardiology - [place] [address] 05/04/2024 11:30 EST Appointment [facility] Hematology & Oncology - [address] [address] 05/04/2024 12:00 EST Appointment [facility] Hematology & Oncology - [address] [phone] 06/12/2024 13:00 EST [facility]ment [facility] Radiology CT - [address] [address] documented as of this encounter Visit Diagnoses Not on filedocumented in this encounter Care Teams Baseball Coach Relationship Specialty Start Date End Date Linda Blancas MD [address] [place] [address] 30 [place] [address] PCP - General 01/06/11 documented as of this encounter
--- OUTSIDE RECORDS SUMMARY | 2024-03-20 15:06 | XMS_ITS | Encounter Summary ---
Author Organization [facility] Address [address] [place] [address] Care Team Providers Care Automobile Mechanic Helper Name Role Phone Linda Blancas MD Primary Care Provider [phone] Reason for Visit * Reason Onset Date Comments Appointment Related 08/29/2017 reschedule Appointment Related 09/02/2017 televox Encounter Details Date Type Department Care Team (Late st Contact Info) Description 08/29/2017 Telephone [facility] Cancer Center Hematology & Oncology - [facility] [address] [place] [address] Vanessa Rollins, DIRECTOR COMMUNICATIONS [facility], [facility] 2 [place] [address] Appointment Related (reschedule); Appointment Related (televox) Social History Tobacco Use Types Packs/Day Years [...] * Telephone Encounter - Nirmala Sanchez - 09/23/2017 1045 EDT Called Pardeep, have to reschedule the 09/26 [facility] Ria appt, together we moved to 10/03/17 at 2:10pm. * Telephone Encounter - Nirmala Sanchez - 09/02/2017 1245 EDT PARDEEP HAS A ON 09/05 AND WE RESCHEDULED TO 09/26/17AT 2:10PM. * Telephone Encounter - Claritza Galindo - 09/02/2017 1003 EDT Patient cancelled their 09/05 visit at 2:10pm with Vanessa Rollins NP via Televox reminder call. Please call patient to reschedule their appointment. * Telephone Encounter - Nirmala Sanchez - 08/30/2017 0851 EDT Called pt back, can't get her in on 09/07 with Ria, put her in on 09/05 at 2:10pm with Ria and lmom, if doesn't work call me back and we'll reschedule. * Telephone Encounter - Anna Henriquez - 08/29/2017 1156 EDT Patient needs to reschedule 09.01.17 due to a in the family. She has another appointment on 09.07.17, and she was hoping that she could get in anytime after 12:00pm. Patient will not be in all week. documented in this encounter Plan of Treatment Upcoming Encounters Date Type Department Care Team (Late st Contact Info) Description 04/02/2024 10:[address] [facility] Interventional Radiology Unit [address] [place] [address] [phone] 04/02/2024 15:[address] [facility] Surgical Oncology - [address] 752321 Adolfo Carreno MD [address] [place] [address] 2 [place] [phone] 04/05/2024 9:30 EDT Telemedicine [facility] - [facility] Palliative Care Services [address] [place] [address] [phone] Chichi Woods MD [address] [place] [phone] 04/11/2024 15:00 EDT Telemedicine [facility] Hematology & Oncology - [address] [phone] Alisson Carreon MD [address] [place] [address] 2 [place] [phone] 04/13/2024 13:30 EDT Appointment [facility] Hematology & Oncology [address] [phone] 04/13/2024 14:00 EDT Appointment [facility] Hematology & Oncology - [address] 624291 04/16/2024 10:00 EST Telemedicine [facility] - [facility] Palliative Care Services [address] [place] [address] [phone] Chichi Woods MD [address] [place] [address], [address] [phone] 04/24/2024 9:00 EST Appointment [facility] Radiology CT Outpatient - [address] 575651 04/24/2024 11:[address] [facility] Breast Imaging - [facility] S [address] 965431 04/27/2024 12:00 EST Appointment [facility] Hematology & Oncology - [address] 549351 05/02/2024 15:00 EST Telemedicine [facility] Hematology & Oncology - [address] 988211 Alisson Carreon MD [address] [place] [address], Level 2 [place] [phone] 05/04/2024 10:[address] [facility] Cardiology [place] [address] 05/04/2024 11:30 EST Appointment [facility] Hematology & Oncology - [address] 707681 05/04/2024 12:00 EST Appointment [facility] Hematology & Oncology - [address] [address] 06/12/2024 13:00 EST Appointment [facility] Radiology CT - [address] [phone] documented as of this encounter Visit Diagnoses Not on filedocumented in this encounter Care Teams Automobile Mechanic Helper Relationship Specialty Start Date End Date Linda Blancas MD 275 [facility] 30 [place] [address] PCP - General 01/06/11 documented as of this encounter
--- OUTSIDE RECORDS SUMMARY | 2024-03-20 15:06 | XMS_ITS | Encounter Summary ---
Author Organization [facility] Address [address] [place] [address] Care Team Providers Care Cardiovascular Sonographer Name Role Phone Linda Blancas MD Primary Care Provider [phone] Reason for Visit * Reason Onset Date Comments Results 07/13/2017 Encounter Details Date Type Department Care Team (Late st Contact Info) Description 07/13/2017 Telephone [facility] Surgical Oncology - [facility] [address] [place] [address] Carmel Riley, SHELLEY Results Social History Tobacco Use Types [...] shopping? (15 years old or older) No 07/07/2017 Cognitive Status Response Date of Assessm ent Because of a physical, menta l, or emotional condition, do you have serious difficulty concentrating, remembering, or making decisions? (5 years old or older) No 07/07/2017 documented as of this encounter Miscellaneous Notes * Telephone Encounter - Carmel Riley RN - 07/13/2017 1604 EST Spoke with Sendy. Relayed her pathology was available. She was pleased that her margins were all negative. POV is 07/15/17. documented in this encounter Plan of Treatment Upcoming Encounters Date Type Department Care Team (Late st Contact Info) Description 04/02/2024 10:30 EDT Appointment [facility] Interventional Radiology Unit [address] [place] [address] [phone] 04/02/2024 15:15 EDT Office Visit [facility] Surgical Oncology - [address] [phone] Adolfo Carreno MD [address] [place] [address] 2 [place] [phone] 04/05/2024 9:30 EDT Telemedicine [facility] - [facility] Palliative Care Services [address] [place] [address] [phone] Chichi Woods MD [address] [place] [address] [phone] 04/11/2024 15:00 EDT Telemedicine [facility] Hematology & Oncology [address] [phone] Alisson Carreon MD [address] [place] [address] 2 [place] [phone] 04/13/2024 13:30 EDT Appointment [facility] Hematology & Oncology - [address] 288751 04/13/2024 14:00 EDT Appointment [facility] Hematology & Oncology - [address] [phone] 04/16/2024 10:00 EST Telemedicine [facility] - [facility] Palliative Care Services [address] [place] [address] [phone] Chichi Woods MD [address] [place] [address], [address] [phone] 04/24/2024 9:00 EST Appointment [facility] Radiology CT Outpatient - [address] 939001 04/24/2024 11:00 EST Appointment [facility] Breast Imaging - [address] 297151 04/27/2024 12:00 EST Appointment [facility] Hematology & Oncology [address] 624541 05/02/2024 15:00 EST Telemedicine [facility] Hematology & Oncology [address] 144601 Alisson Carreon MD [address] [place] [address], [facility], Level [address] [place] [phone] 05/04/2024 10:15 EST Ancillary Procedure [facility] Cardiology [place] [address] 05/04/2024 11:30 EST Appointment [facility] Hematology & Oncology [address] 099301 05/04/2024 12:00 EST Appointment [facility] Hematology & Oncology - [address] 634411 06/12/2024 13:00 EST Appointment [facility] Radiology CT - Main [address] 802381 documented as of this encounter Visit Diagnoses Not on filedocumented in this encounter Care Teams Cardiovascular Sonographer Relationship Specialty Start Date End Date Linda Blancas MD [facility] [address] [place] [address] PCP - General 01/06/11 documented as of this encounter
--- OUTSIDE RECORDS SUMMARY | 2024-03-20 15:06 | XMS_ITS | Encounter Summary ---
Author Organization [facility] Address [address] [place] [address] Care Team Providers Care Budget Counselor Name Role Phone Linda Blancas MD Primary Care Provider [phone] Reason for Visit * Reason Comments Post-OP Follow Up Encounter Details Date Type Department Care Team (Late st Contact Info) Description 07/15/2017 15:30 EST Post-op Visit [facility] Surgical Oncology - [address] [address] Adolfo Carreno MD 111 [facility], Level 2 [place] [address] Malignant neoplasm of female breast, unspecified estrogen receptor status, unspecified laterality, unspecified site of breast (CMS-HCC) (HCC-CMS) (Primary Dx) Social History Tobacco [...] Pressure - - Pulse - - Temperature 34.9 ??C (94.8 ??F) 07/15/2017 1525 EST Respiratory Rate - - Oxygen Saturation [...] Progress Notes * Adolfo Carreno MD - 07/15/2017 1530 EST This office note has been dictated. * Adolfo Carreno MD - 07/15/2017 0000 EST [facility] CANCER CENTER BREAST CANCER PROGRAM PROGRESS / FOLLOWUP NOTE - 07/15/2017 SUBJECTIVE: The patient is seen in postop followup. She is a 56-year-old woman who had recurrent breast cancer after a mastectomy on the right side in 2003 for DCIS. The patient was found to have metastatic disease in the lung and mediastinal nodes as well. She was treated with endocrine therapy with letrozole and palbociclib. She has had a good response in both the lungs and in the breast area. The patient then presented for excision of that site, recurrence in the mastectomy site, which wouldrequire removal and reimplantation of a new prosthesis. That was done on July 07. The patient is seen in postop followup. She has been doing relatively well. Has no complaints. OBJECTIVE: On exam, her incision is well healed. Her drains were removed earlier today in plastic surgery. There is no evidence of any wound problems. DIAGNOSTIC DATA: Final pathology demonstrated that the recurrent tumor was a well-differentiated invasive ductal cancer, measured about 1.9 cm in maximum dimension. We had clear margins around the entire area. There was some lymphovascular invasion seen, but we had clear margins around that as well. ASSESSMENT AND PLAN: Based on these findings, the patient is doing well from a postsurgical standpoint. Additional treatments for this are not needed at this point, she will continue on her letrozoleand palbociclib. We will plan followup with myself in 6 months. Adolfo Carreno MD 07 05 PM - Adolfo Carreno MD cn Dictation ID: [id number] cc: Linda Blancas MD, [address] [place] [id number] Augustina Colin MD, [facility] - Hematology Oncology [address] [place] [address] Tylor Boss MD, [facility] - Plastic Surgery [address] [place] [address], [address], [place] [address] documented in this encounter Plan of Treatment Upcoming Encounters Date Type Department Care Team (Late st Contact Info) Description 04/02/2024 10:30 EDT Appointment [facility] Interventional Radiology Unit [address] [place] [address] [phone] 04/02/2024 15:15 EDT Office Visit [facility] Surgical Oncology - [address] [phone] Adolfo Carreno MD [address] [place] [address], [facility], Level 2 [place] [phone] 04/05/2024 9:30 EDT Telemedicine [facility] - [facility] Palliative Care Services [address] [place], [place] [phone] Chichi Woods MD 111 [facility] [place] 262 [place] [phone] 04/11/2024 15:00 EDT Telemedicine [facility] Hematology & Oncology - [address] [phone] Alisson Carreon MD [address] [place] [address], [facility] 2 [place] [phone] 04/13/2024 13:30 EDT Appointment [facility] Hematology & Oncology - [address] 118271 04/13/2024 14:00 EDT Appointment [facility] Hematology & Oncology - [address] 504541 04/16/2024 10:00 EST Telemedicine [facility] - [facility] Palliative Care Services [address] [place] [address] [phone] Chichi Woods MD [address] [place] [address], [address] [phone] 04/24/2024 9:[address] [facility] Radiology CT Outpatient - [address] 201231 04/24/2024 11:00 EST Appointment [facility] Breast Imaging - [facility] S [address] 458651 04/27/2024 12:00 EST Appointment [facility] Hematology & Oncology - [address] [phone] 05/02/2024 15:00 EST Telemedicine [facility] Hematology & Oncology - [address] [phone] Alisson Carreon MD [address] [place] [address], [facility] 2 [place] [phone] 05/04/2024 10:15 EST Ancillary Procedure [facility] Cardiology - [address] [place], [place] [phone] 05/04/2024 11:30 EST Appointment [facility] Hematology & Oncology [address] [address] 05/04/2024 12:00 EST Appointment [facility] Hematology & Oncology [address] [address] 06/12/2024 13:00 EST Appointment [facility] Radiology CT - [address] [address] documented as of this encounter Procedures Procedure Name Priority Date/Time Associated Diagnosis Comments ORDERS - SCANNED 11/10/2017 10:06 EDT documented in this encounter Results * ORDERS - SCANNED (11/10/2017 10:06 EDT) 11/10/2017 10:0 6 EDT Scan 2 [address] ADMISSION ORDERABLE S documented in this encounter Visit Diagnoses Diagnosis Malignant neoplasm of female breast, unspecified estrogen receptor status, unspecified laterality, unspecified site of breast ([facility])- Primary documented in this encounter Care Teams Budget Counselor Relationship Specialty Start Date End Date Linda Blancas MD [facility] [address] [place] [address] PCP - General 01/06/11 documented as of this encounter
--- OUTSIDE RECORDS SUMMARY | 2024-03-20 15:06 | XMS_ITS | Encounter Summary ---
Author Organization [facility] Address [address] [place] [address] Care Team Providers Care Carrier Blower Name Role Phone Linda Blancas MD Primary Care Provider [phone] Reason for Visit * Reason Onset Date Comments Pre-op Exam 07/06/2017 Encounter Details Date Type Department Care Team (Late st Contact Info) Description 07/06/2017 Pre-Procedure Orders Encounter [facility] Surgical Oncology - [address] [address] Adolfo Carreno MD 111 [facility], Level 2 [place] [address] Malignant neoplasm of female breast, [...] [facility] Interventional Radiology Unit [address] [place] [address] [phone] 04/02/2024 15:15 EDT Office Visit [facility] Surgical Oncology - [address] 464461 Adolfo Carreno MD [address] [place] [phone] 04/05/2024 9:30 EDT Telemedicine [facility] Palliative Care Services [address] [place] [address] [phone] Chichi Woods MD [address] [place] [phone] 04/11/2024 15:00 EDT Telemedicine [facility] Hematology & Oncology [address] 321831 Alisson Carreon MD [address] [place] [phone] 04/13/2024 13:30 EDT Appointment [facility] Hematology & Oncology [address] 569761 04/13/2024 14:00 EDT Appointment [facility] Hematology & Oncology [address] 690441 04/16/2024 10:00 EST Telemedicine [facility] Palliative Care Services [address] [place] [address] [phone] Chichi Woods MD [address] [place] [address], [place] [address] [place] [phone] 04/24/2024 9:00 EST Appointment [facility] Radiology CT Outpatient - [address] 487331 04/24/2024 11:00 EST Appointment [facility] Breast Imaging - [address] 049491 04/27/2024 12:00 EST Appointment [facility] Hematology & Oncology [address] 753081 05/02/2024 15:00 EST Telemedicine [facility] Hematology & Oncology [address] 958521 Alisson Carreon MD [address] [place] [address], Level 2 [place] [phone] 05/04/2024 10:15 EST Ancillary Procedure [facility] Cardiology - [address] [place] [address] 05/04/2024 11:30 EST Appointment [facility] Hematology & Oncology [address] [phone] 05/04/2024 12:00 EST Appointment [facility] Hematology & Oncology - [address] 227821 06/12/2024 13:00 EST Appointment [facility] Radiology CT - [address] [phone] documented as of this encounter Visit Diagnoses Diagnosis Malignant neoplasm of female breast, unspecified estrogen receptor status, unspecified laterality, unspecified site of breast ([facility])- Primary documented in this encounter Care Teams Carrier Blower Relationship Specialty Start Date End Date Linda Blancas MD [address] [place] [address] PCP - General 01/06/11 documented as of this encounter
--- OUTSIDE RECORDS SUMMARY | 2024-03-20 15:06 | XMS_ITS | Encounter Summary ---
Author Organization [facility] Address [address] [place] [address] Care Team Providers Care Labor Conciliator Name Role Phone Linda Blancas MD Primary Care Provider [phone] Reason for Visit * Reason Comments Pre-op Exam 07/07 - right te asael n Encounter Details Date Type Department Care Team (Late st Contact Info) Description 06/24/2017 10:30 EST Office Visit [facility] [place] [facility] Plastic, Reconstructive & Cosmetic Surgery - [address], [address] [place], [place] [address] Tylor Boss MD [address] [phone] Metastatic breast cancer (CMS-HCC) (HCC-CMS) (Primary Dx); Malignant neoplasm of right female breast, unspecified estrogen receptor status, unspecified site of breast (HCC) Social History Tobacco Use Types Packs/Day Years [...] No 05/02/2017 documented as of this encounter Patient Instructions * Patient Instructions* Komal Huang RN - 06/24/2017 10:30 EST The narcotics you have been given for pain management can cause constipation. You should be aware of this change in your bowels habits. Be pro-active and start Colace (stool softener) 2 capsules 2 times a day or take Miralax by the instructions on the bottle.. If no BM in 3 days(s), take Senna Natural Laxative (2 tablets) at bedtime followed by a full glass of water (10 oz). Repeat next day if noresults. If you are having no relief, please call the office and we will give you further directions. documented in this encounter Progress Notes * Tylor Boss MD - 06/24/2017 1030 EST Sunshine is here for her preoperative appointment for right breast saline to silicone implant exchange versus tissue sea air land officer based breast reconstruction planned for 07/07/17. We reviewed the general risks of reconstruction associated with the device itself and the surgical procedure. We also discussed the potential risk related to using acellular dermal matrix. We reviewed the [employer] consent form for the procedure and answered any questions she had to her satisfaction. Signed informed ASPS and signed informed hospital consent was obtained today and will be placed in the office chart and the electronic health record respectively. I spent 35 minutes with this patient; 30 minutes was spent in counseling and coordination of care as described in the progress note. documented in this encounter Plan of Treatment Upcoming Encounters Date Type Department Care Team (Late st Contact Info) Description 04/02/2024 10:30 EDT Appointment [facility] [place] [facility] Interventional Radiology Unit [address] [place] [address] 04/02/2024 15:15 EDT Office Visit [facility] [place] [facility] Surgical Oncology - [address] [phone] Adolfo Carreno MD [address] [place] [address] [phone] 04/05/2024 9:30 EDT Telemedicine [facility] [address] [place] [address] [phone] Chichi Woods MD [address] [place] [phone] 04/11/2024 15:00 EDT Telemedicine [facility] Hematology & Oncology - [address] [phone] Alisson Carreon MD [address] [place] [address] [phone] 04/13/2024 13:30 EDT Appointment [facility] Hematology & Oncology [address] [phone] 04/13/2024 14:00 EDT Appointment [facility] Hematology & Oncology - [address] [address] 04/16/2024 10:00 EST Telemedicine [facility]iative [facility] Services [address] [place] [address] [phone] Chichi Woods MD [address] [place] [address] [phone] 04/24/2024 9:00 EST Appointment [facility] Radiology CT Outpatient - [address] 109251 04/24/2024 11:00 EST Appointment [facility] [place] [facility] Breast Imaging - [facility] [address] [place] [address] [place] [address] 04/27/2024 12:00 EST Appointment [facility] Hematology & Oncology - [address] [address] 05/02/2024 15:00 EST Telemedicine [facility] Hematology & Oncology [address] [phone] Alisson Carreon MD [address] [place] [address], Level [address] [place] [phone] 05/04/2024 10:15 EST Ancillary Procedure [facility] [place] [facility] Cardiology - [address] [place] [address] 05/04/2024 11:30 EST Appointment [facility] Hematology & Oncology - [address] [address] 05/04/2024 12:00 EST Appointment [facility] Hematology & Oncology [address] [phone] 06/12/2024 13:00 EST Appointment [facility] Radiology CT - [address] [phone] documented as of this encounter Visit Diagnoses Diagnosis Metastatic breast cancer- Primary Malignant neoplasm of right female breast, unspecified estrogen receptor status, unspecified site of breast (HCC) documented in this encounter Care Teams Labor Conciliator Relationship Specialty Start Date End Date Linda Blancas MD [facility] [address] [place] [address] PCP - General 01/06/11 documented as of this encounter
--- OUTSIDE RECORDS SUMMARY | 2024-03-20 15:06 | XMS_ITS | Encounter Summary ---
Author Organization [facility] Address [address] [place] [address] Care Team Providers Care Marine Scientist Name Role Phone Linda Blancas MD Primary Care Provider [phone] Reason for Visit * Reason Onset Date Comments Surgery Scheduling 05/31/2017 Encounter Details Date Type Department Care Team (Late st Contact Info) Description 05/31/2017 Telephone [facility] Surgical Oncology - [address] [address] Adolfo Carreno MD 111 [facility], [address] [place] [phone] Surgery Scheduling Social History Tobacco Use Types [...] Miscellaneous Notes * Telephone Encounter - Catherine Child - 06/10/2017 1006 EST Spoke with patient we have decided on 07/07/17 let patient know I would have to ask if yarely to come in for a pre-op visit * Telephone Encounter - Kiana Avina - 05/31/2017 1602 EST Reason for Call: Surgery Scheduling Summary/Symptoms: Patient states that she has been looking to speak with a event av operator to schedule surgery with Dr. Adolfo Carreno. July 07 [address] Whalen's office. She states these need to be coordinate appointments. Please call Kiana Avina 05/31/2017 16:03 documented in this encounter Plan of Treatment Upcoming Encounters Date Type Department Care Team (Late st Contact Info) Description 04/02/2024 10:30 EDT Appointment [facility] Interventional Radiology Unit [address] [place] [address] [phone] 04/02/2024 15:15 EDT Office Visit [facility] Surgical Oncology - [address] [phone] Adolfo Carreno MD 111 [facility], [address] [place] [phone] 04/05/2024 9:30 EDT Telemedicine [facility] - [facility] Palliative Care Services [address] [place] [address] [phone] Chichi Woods MD 111 [facility], [address] [phone] 04/11/2024 15:00 EDT Telemedicine [facility] [place] Hematology & Oncology - [address] [phone] Alisson Carreon MD [address] [place] [address] 2 [place] [phone] 04/13/2024 13:30 EDT Appointment [facility] Hematology & Oncology - [address] [phone] 04/13/2024 14:00 EDT Appointment [facility] Hematology & Oncology - [address] [phone] 04/16/2024 10:00 EST Telemedicine [facility] - [facility] Palliative Care Services [address] [place] [address] [phone] Chichi Woods MD [address] [place] [address] [phone] 04/24/2024 9:00 EST Appointment [facility] Radiology CT Outpatient - [address] [phone] 04/24/2024 11:00 EST Appointment [facility] Breast Imaging - [facility] [address] [phone] 04/27/2024 12:00 EST Appointment [facility] Hematology & Oncology - [address] [phone] 05/02/2024 15:00 EST Telemedicine [facility] Hematology & Oncology - [address] [phone] Alisson Carreon MD [address] [place] [address], [facility] [address] [place] [phone] 05/04/2024 10:15 EST Ancillary Procedure [facility] Cardiology - [address] [place], [place] [phone] 05/04/2024 11:30 EST Appointment [facility] [place] Hematology & Oncology [address] [address] 05/04/2024 12:00 EST Appointment [facility] Hematology & Oncology [address] [address] 06/12/2024 13:00 EST Appointment [facility] Radiology CT - [address] [phone] documented as of this encounter Visit Diagnoses Not on filedocumented in this encounter Care Teams Marine Scientist Relationship Specialty Start Date End Date Linda Blancas MD [facility] [address] [place] [address] PCP - General 01/06/11 documented as of this encounter
--- OUTSIDE RECORDS SUMMARY | 2024-03-20 15:06 | XMS_ITS | Encounter Summary ---
Author Organization [facility] Address [address] [place] [address] Care Team Providers Care Class C Truck Driver Name Role Phone Linda Blancas MD Primary Care Provider [phone] Reason for Visit * Reason Onset Date Comments Appointment Related 07/15/[address] Geovany hughes Medication Questions 07/15/2017 IBRANCE Follow-up 07/19/2017 Encounter Details Date Type Department Care Team (Late st Contact Info) Description 07/15/2017 Telephone [facility] Hematology & Oncology - [address] [address] Augustina Colin MD PhD Appointment Related (07.27.17 Dr Colin); Medication Questions (IBRANCE); Follow-up Social History Tobacco Use Types Packs/Day [...] encounter Miscellaneous Notes * Telephone Encounter - Anusha Kendall - 07/19/2017 1402 EST Reason for Call: Appointment Related (07.27.17 Dr Colin); Medication Questions (IBRANCE); and Follow-up Summary/Symptoms: Pt calling back to change 07/27 Haq 07/19/2017 14:02 * Telephone Encounter - Paz Martinez - 07/15/2017 0831 EST Reason for Call: Appointment Related (07.27.17 Dr Colin) and Medication Questions (IBRANCE) Summary/Symptoms: Patient calling, regarding appt with Dr Colin 07.27.17. Had stopped IBRANCE 3 weeks ago and had her surgery 2 weeks ago and is starting up her IBRANCE on 07.25.17. Would like to knowif Dr Colin still wants to see her on 07.27.17. Please give a call as soon as possible to inform. She also said, Dr Colin can send a secure email, to her with confirmation, like she has done in the past. Paz Martinez 07/15/2017 8:33 documented in this encounter Plan of Treatment Upcoming Encounters Date Type Department Care Team (Late st Contact Info) Description 04/02/2024 10:30 EDT Appointment [facility] Interventional Radiology Unit [address] [place] [phone] 04/02/2024 15:15 EDT Office Visit [facility] Surgical Oncology - [address] [address] Adolfo Carreno MD 111 [facility], Level [address] [place] [phone] 04/05/2024 9:30 EDT Telemedicine [facility] Palliative Care Services [address] [place] [address] [phone] Chichi Woods MD [address] [place] [address] [phone] 04/11/2024 15:00 EDT Telemedicine [facility] Hematology & Oncology - [address] [phone] Alisson Carreon MD [address] [place] [address] 2 [place] [phone] 04/13/2024 13:30 EDT Appointment [facility] Hematology & Oncology - [address] [phone] 04/13/2024 14:00 EDT Appointment [facility] Hematology & Oncology - [address] [address] 04/16/2024 10:00 EST Telemedicine [facility] Palliative Care Services [address] [place] [address] Chichi Woods MD [address] [place] [address] [phone] 04/24/2024 9:00 EST Appointment [facility] Radiology CT Outpatient - [address] [phone] 04/24/2024 11:00 EST Appointment [facility] Breast Imaging - [address] [phone] 04/27/2024 12:00 EST Appointment [facility] Hematology & Oncology [address] [address] 05/02/2024 15:00 EST Telemedicine [facility] Hematology & Oncology [address] [address] Alisson Carreon MD [address] [place] [address], [address] [place] [phone] 05/04/2024 10:15 EST Ancillary Procedure [facility] Cardiology - [place] [address] 05/04/2024 11:30 EST Appointment [facility] Hematology & Oncology [address] [address] 05/04/2024 12:00 EST Appointment [facility] Hematology & Oncology [address] 577751 06/12/2024 13:00 EST Appointment [facility] Radiology CT - [address] [phone] documented as of this encounter Visit Diagnoses Not on filedocumented in this encounter Care Teams Class C Truck Driver Relationship Specialty Start Date End Date Linda Blancas MD [facility] [address] [place] [address] PCP - General 01/06/11 documented as of this encounter
--- OUTSIDE RECORDS SUMMARY | 2024-03-20 15:06 | XMS_ITS | Encounter Summary ---
Author Organization [facility] Address [address] [place] [address] Care Team Providers Care Refuse Collector Supervisor Name Role Phone Linda Blancas MD Primary Care Provider [phone] Reason for Referral * (Routine) - Receiving Office to Obtain Authorization Specialty Diagnoses / Procedures Referred By Contac t Referred To Contact James Lieberman MD [address] [place] [phone] Referral ID Status Reason Start Date Expiration Date Visits Requested Visits Authorized [id number] Receiving Office to Obtain Authorization Specialty Services Required 8 [address] Boss in 7-10 days or as scheduled. Call [phone] for questions or concerns. * (Routine) - Receiving Office to Obtain Authorization Specialty Diagnoses / Procedures Referred By Contac t Referred To Contact James Lieberman MD [address] [place] [phone] Referral ID Status Reason Start Date Expiration Date Visits Requested Visits Authorized [id number] Receiving Office to Obtain Authorization Specialty Services Required 8 1 1 Comments - Chest pain (angina) [...] Care Team (Late st Contact Info) Description 07/07/2017 6:31 EST - 07/08/2017 12:55 EST Hospital Encounter [facility] Unit [address] [address], [place] [id number] Felipe Boss MD [address] [place] [address] Adolfo Fox MD [address] [facility], Level 2 [place] [address] Malignant neoplasm of female breast, unspecified estrogen receptor status, unspecified laterality, unspecified site of breast (CMS-HCC) (HCC-CMS) (Primary Dx) Discharge Disposition: Home or [...] Sign Reading Time Taken Comments Blood Pressure 111/63 07/08/2017 0947 EST Pulse 87 07/08/2017 0947 EST Temperature 37 ??C (98.6 ??F) 07/08/2017 0947 EST Respiratory Rate 16 07/08/2017 0947 EST Oxygen Saturation 97% 07/08/2017 0947 EST Inhaled Oxygen Concentration - - Weight 65.8 kg (145 lb) 07/07/2017 1400 EST Height 156.8 cm (5' 1.75) 07/07/2017 1400 EST Body Mass Index 26.74 07/07/2017 1400 EST documented in this encounter [...] No 07/07/2017 documented as of this encounter Discharge Diagnoses Diagnosis C50.511 Malignant neoplasm of lower-outer quadrant of right female breast-C50.511[ICD-10-CM] B00.9 Herpesviral infection, unspecified-B00.9[ICD-10-CM] Z79.2 terminal carman (current) use of antibiotics-Z79.2[ICD-10-CM] Z79.899 Other assisted (current) drug therapy-Z79.899[ICD-10-CM] documented in this encounter Discharge Summaries * James Lieberman MD - 07/07/2017 1545 EST Surgery Discharge Summary Primary Care Provider: Linda Blancas Attending Physician: Adolfo Fox MD Admit Date: 07/07/2017 Discharge Date: 07/08/17 Disposition: Home or self care Problems and Procedures Admitting Diagnosis: Metastatic recurrent breast cancer Principal/Final Diagnosis: Metastatic recurrent breast cancer Additional Problems Managed in the Hospital Active Hospital Problems Diagnosis Date Noted ??? *Malignant neoplasm of female breast ([facility]-HCC) 07/07/2017 Resolved Hospital Problems Diagnosis Date Noted Date Resolved No resolved problems to display. 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 ??She underwent a mastectomy with implant reconstruction. ??She had a 2.7 area of DCIS; however, she had apositive margin in the lower outer quadrant. ??The patient opted not to do any additional treatments and in followup was noted to have a mass that developed in that area earlier this year. ??This involved the skin. ??Biopsy of that showed recurrent breast cancer. ??She underwent a metastatic workup, which showed lung nodules and mediastinal lymphadenopathy, which was biopsied showing metastatic breast cancer. ??The patient was therefore begun on systemic treatments. ??She has been getting letrozole and palbociclib and that has been somewhat complicated by some mouth sores, had to come off that for a period of time. ??This can be coming back on soon in a lower dose. ??The patient had a repeat staging CT scan of the chest done in March. --- After discussion, she decided to undergo wide local excision of her primary tumor site in the rightlateral breast remnant with reconstruction by Dr. Boss. She had no complications post-operatively, and improved as expected while admitted. POD#1, she was ambulatory, urinating appropriately, tolerating diet, and pain was controlled with PO medication. She will go home with a course of keflex with her sheldon drain still in place. She will follow-up with Dr. Fox and Dr. Boss in clinic. Allergies and Immunizations Allergies Allergen Reactions ??? Amoxicillin Other (See Comments) and Rash Red rash ??? Sulfa (Sulfonamide Antibiotics) Hives Light lavender rash Transition of Care Plans Condition at Discharge Improved Assessment at Discharge Vital signs: Patient Vitals for the past 12 hrs: BP Heart Rate Resp Temp SpO2 O2 Device 07/08/17 0600 102/51 82 BPM 16 37.1 ??C (98.8 ??F) 98 % None 07/08/17 0134 106/53 - 16 36.4 ??C (97.5 ??F) 94 % - Discharge Medications: START taking these medications Sig cephALEXin 500 mg capsule Commonly known as: KEFLEX Take 1 Cap by mouth every 6 hours for 21 days. Quantity: 84 Cap oxyCODONE-acetaminophen 5-325 mg per tablet Commonly known as: PERCOCET Take 1-2 Tabs by mouth every 4 hours as needed for Pain. Daily Max: 12 Tabs Quantity: 10 Tab CONTINUE taking these medications Sig calcium-vitamin D 500 mg(1,250mg) -200 unit per tablet Commonly known as: OS-CHAR D Take 1 Tab by mouth 2 times daily with breakfast and dinner. gabapentin 100 mg capsule Commonly known as: NEURONTIN Take 2 Caps by mouth 2 times daily. Quantity: 360 Cap ibuprofen 200 mg tablet Commonly known as: MOTRIN Take 200-400 mg by mouth as needed. letrozole 2.5 mg tablet Commonly known as: FEMARA TAKE 1 TABLET DAILY Quantity: 90 Tab palbociclib 125 mg capsule Commonly known as: IBRANCE Take 100 mg by mouth daily. For 21 days on then 7 days off Quantity: 21 Cap PriLOSEC 20 mg capsule Generic drug: omeprazole Take 20 mg by mouth daily. UNISOM ORAL Take by mouth as needed. Takes half a tablet valACYclovir 500 mg tablet Commonly known as: VALTREX Take 1 Tab by mouth daily. Quantity: 90 Tab venlafaxine 150 mg XR capsule Commonly known as: EFFEXOR-XR Take 1 Cap by mouth daily. Quantity: 90 Cap WOMEN'S DAILY FORMULA ORAL Take by mouth daily. zolpidem 5 mg tablet Commonly known as: AMBIEN Take 5 mg by mouth at bedtime as needed for Sleep. Reported on 11/01/2016 STOP taking these medications acetaminophen 325 mg tablet Commonly known as: TYLENOL OTHER medications on file Sig RED YEAST RICE ORAL Take 1,200 mg by mouth daily. 600mg 2x a day Results Pending at Discharge Test results still pending from this admission Procedure Component Value Units Date/Time Surgical Pathology [[id number]] Collected: 07/07/17929 Lab Status: In process Updated: 07/07/17929 Last Lab Results at Discharge BUN: Lab Results Component Value Date BUN 22 05/02/2017 Creatinine: Lab Results Component Value Date CREATININE 0.81 05/02/2017 CBC: Lab Results Component Value Date WBC 13.77 (H) 07/08/2017 RBC 3.48 (L) 07/08/2017 HGB 12.7 07/08/2017 HCT 36.4 07/08/2017 MCV 105 (H) 07/08/2017 MCH 36.5 (H) 07/08/2017 MCHC 34.9 07/08/2017 PLT 308 07/08/2017 DIFFTYPE Automated 05/02/2017 SEDRATE 73 (H) 12/31/2011 Electrolytes: Lab Results Component Value Date NA 144 05/02/2017 K 4.2 05/02/2017 CL 106 05/02/2017 CO2 27 05/02/2017 Discharge Follow Up Appointments Scheduled with [facility] in the next 3 months Upcoming Appointments Jul 15, 2017 15:30 EST Post-Op Visit with Adolfo Fox MD [facility] Surgical Oncology [facility] (--) [address] [facility] [address] Jul 27, 2017 11:00 EST Followup 30 with Augustina Colin MD [facility] Hematology & Oncology [facility] (--) [address] [facility] [address] Appointments and Procedures Recommended to Patient Follow-up appointments and procedures Appointments Please see Dr. Boss in 7-10 days or as scheduled. Call [phone] for questions or concerns. Authorizing Provider: James Lieberman MD Symptoms to Call Your Doctor About - Chest pain (angina) - Dizziness or [...] or drainage at procedure or wound site Authorizing Provider: James Lieberman MD Studies We Will Schedule James Lieberman MD 07/08/2017 9:35 documented in this encounter Medications at Time [...] Cap by mouth every 6 hours for 21 days. 84 Cap 07/08/2017 07/29/2017 DOXYLAMINE SUCCINATE (UNISOM ORAL) Take by mouth as needed. Takes half a tablet 02/02/2011 01/13/2022 gabapentin (NEURONTIN) 100 mg capsule Take 2 Caps by mouth 2 times daily. 360 Cap 3 08/16/2012 12/14/2023 ibuprofen (MOTRIN) 200 mg tablet Take 200-400 mg by mouth as needed. 08/30/2018 letrozole (FEMARA) 2.5 mg tabletIndications:Perso nal history of malignant neoplasm of breast,Breast lump TAKE 1 TABLET DAILY 90 Tab 3 01/20/2017 01/15/2018 omeprazole (PRILOSEC) 20 mg capsule Take 1 Capsule by mouth daily. 03/28/2023 oxyCODONE-acetaminophen (PERCOCET) 5-325 mg per tablet Take 1-2 Tabs by mouth every 4 hours as needed for Pain. Daily Max: 12 Tabs 10 Tab 07/08/2017 07/15/2017 palbociclib (IBRANCE) 125 mg capsuleIndications:[place] static breast cancer Take 100 mg by mouth daily. For 21 days on then 7 days off 21 Cap 3 03/16/2017 09/06/2017 venlafaxine (EFFEXOR-XR) 150 mg XR capsule Take [...] Cap by mouth every 6 hours for 21 days. 84 Cap 07/08/2017 07/29/2017 oxyCODONE-acetaminophen (PERCOCET) 5-325 mg per tablet Take 1-2 Tabs by mouth every 4 hours as needed for Pain. Daily Max: 12 Tabs 10 Tab 07/08/2017 07/15/2017 documented in this encounter Discharge Disposition Disposition Code Departure Means Destination Home or Self Care documented in this encounter Progress Notes * Cheryl Christopher - 07/08/2017 1634 EST Initial Case Management/Social Work Assessment and Discharge Plan/Readmission Risk Assessment/DC note REASON FOR ADMISSION: Malignant neoplasm of female breast (CMS-HCC) Patient understands reason for admission: Yes PATIENT CONTACT INFO VERIFIED: Yes PATIENT ADDRESS VERIFIED: LIVING ARRANGEMENTS AND ACCESSIBILITY ISSUES: Living Arrangements: Spouse What in home social supports are available to the patient? Spouse Is 03/01 care available? Yes ADVANCED DIRECTIVES, POA &/or COLST IN PLACE: Healthcare Directive: No, patient does not have advance directive for healthcare treatment DIRECTIVES FOR FINANCES: TRANSPORTATION: Transportation: Family, Self CULTURAL, DENOMINATIONAL and/or LANGUAGE factors affecting health care/discharge planning: Spiritual/Cultural Requests: None Any factors affecting health care/discharge planning?: No Insurance in Place: Yes Medical Insurance: Yes Type of insurance: Commercial insurance Commercial coverage: BC/BS of [place] DISCHARGE RISK ASSESSMENT: Polypharmacy, > 7 medications Total # selected above: Score of 1 - 2: This patient is at LOW RISK for re-hospitalization Tentative plan to address the risk of re-hospitalization for those at HIGH MODERATE RISK: RAPT TOOL: Age: 50-65 Gender: Female Ambulation distance: 2 or more blocks (600ft) Gait device: None Community Services: Home health, MOW, SAS-none Will you live with someone who will care for you?: Yes RAPT Tool Score: 11 Patient expects to be discharged to: home SBIRT: SASQ (Single Alcohol Screening Question) How many times in the past year have you had 4 or more drinks in a single day?: Never How many times in the past year have you used an illegal drug or used a prescription medication fornon-medical reasons?: Never Intervention in place/initiated?: No, not indicated FUNCTIONAL STATUS: Activities patient requires assistance: None Assistive Device: None COMMUNITY RESOURCES/SUPPORTS: Primary Care Provider: Linda Blancas MD PCP Verified: Yes Specialists: Type of Home Health Services: None DME Provider: Pharmacy: [id number] - [facility] [place] - [address] [facility] [address] [facility] [address] [employer] [place], [place] [address] [facility] [address] [employer] [facility] - [place], [place] - [address] [facility] [address] Home Health: Other: Patient understands will dc home with drain. Anticipate self care after nursing education. POST HOSPITAL TRANSITION PLAN: Pt discharged home to self care Linda Christopher RN CM [id number] 07/08/2017 * Augustine Isabel - 07/08/2017 0733 EST SURGERY DAILY PROGRESS NOTE DOS: 07/08/2017 LOS: 0 days (07/07/2017) CC: Malignant neoplasm of female breast (CMS-HCC) Subjective: Reports she feels well today. Eating and drinking well. -N/-V. -BM/+flatus. No abdominal pain. Denies CP, SoB, Numbness, tingling, calf pain. She is ambulating well. Feels she is ready to go home when medically cleared. Objective: Vitals: BP: (102-136)/(51-90) () Pulse: [90] () Temp: [35.5 ??C (95.9 ??F)-37.7 ??C (99.9 ??F)] () Resp: [10-20] () SpO2: [94 %-99 %] () Admission weight: Weight : 68 kg (150 lb) Most recent weight: Weight : 65.8 kg (145 lb) I&O By Type - 3 Shifts Including Current In: 1560 [P.O.:1560] Out: 735 [Urine:700; Drains:35] Exam Gen: conversant, NAD Neuro: AAOx3 CV: RRR Resp: CTAB Abd: S, NT, ND Wound: Dressing clean, dry, intact. Scant serosanginous drainage from L ÓSCAR drain. Meds: Current Facility-Administered Medications: acetaminophen (TYLENOL) tablet 650 mg oral Q4H PRN calcium-vitamin D (OS-CHAR D) 500 mg(1,250mg) -200 unit per tablet 1 Tab oral BID (BREAKFAST/DINNER) cephALEXin (KEFLEX) capsule 500 mg oral Q6H diphenhydrAMINE (BENADRYL) capsule 25 mg oral AT BEDTIME PRN gabapentin (NEURONTIN) capsule 300 mg oral 2 times per day gabapentin (NEURONTIN) capsule 600 mg oral QHS letrozole (FEMARA) tablet 2.5 mg oral DAILY oxyCODONE (ROXICODONE) immediate release tablet 5 mg oral Q4H PRN pantoprazole (PROTONIX) tablet 40 mg oral DAILY valACYclovir (VALTREX) tablet 500 mg oral DAILY venlafaxine (EFFEXOR-XR) XR capsule 150 mg oral DAILY zolpidem (AMBIEN) tablet 5 mg oral AT BEDTIME PRN Assessment: Sunshine Pleitez is a(n) 56 y.o. old female who was admitted for Malignant neoplasm of femalebreast (CMS-HCC) on 07/07/2017. She is POD#1 s/p wide local excision of the right lateral breast remnant with reconstruction and doing well postop. Patient Active Problem List Diagnosis ??? Papanicolaou [...] ??? Breast lump ??? Metastatic breast cancer (CMS-HCC) ??? Malignant neoplasm of female breast (CMS-HCC) Plan: -Gabapentin, oxycodone, tylenol for pain -IS/pulmonary hygiene -Regular diet -Home meds -IVF off with good PO intake -Monitor wound, ÓSCAR output -Keflex with drain in -Activity as tolerated Augustine Isabel 07/08/2017 7:33 * Faizan Saldivar MD - 07/07/2017 1533 EST SURGERY DAILY PROGRESS NOTE DOS: 07/07/2017 LOS: 0 days (07/07/2017) CC: Malignant neoplasm of female breast (CMS-HCC) Subjective: No issues post-operatively. Tolerating diet, ambulating, pain well controlled. Hopeful to be discharged tomorrow. Objective: Vitals: BP: (115-130)/(57-90) () Pulse: -- () Temp: [35.5 ??C (95.9 ??F)-36.7 ??C (98.1 ??F)] () Resp: [10-20] () SpO2: [95 %-99 %] () Admission weight: Weight : 68 kg (150 lb) Most recent weight: Weight : 65.8 kg (145 lb) I&O By Type - 3 Shifts Including Current In: 1076.3 [I.V.:1076.3] Out: 400 [Urine:400] Exam Gen: conversant, NAD Neuro: AAOx3 CV: RRR Resp: CTAB Abd: S, NT, ND Extr: WWP, motor and sensory intake RUE Wound: Dressing clean, dry Meds: Current Facility-Administered Medications: acetaminophen (TYLENOL) tablet 650 mg oral Q4H PRN calcium-vitamin D (OS-CHAR D) 500 mg(1,250mg) -200 unit per tablet 1 Tab oral BID (BREAKFAST/DINNER) cephALEXin (KEFLEX) capsule 500 mg oral Q6H diphenhydrAMINE (BENADRYL) capsule 25 mg oral AT BEDTIME PRN gabapentin (NEURONTIN) capsule 300 mg oral 2 times per day gabapentin (NEURONTIN) capsule 600 mg oral QHS letrozole (FEMARA) tablet 2.5 mg oral DAILY oxyCODONE (ROXICODONE) immediate release tablet 5 mg oral Q4H PRN pantoprazole (PROTONIX) tablet 40 mg oral DAILY valACYclovir (VALTREX) tablet 500 mg oral DAILY venlafaxine (EFFEXOR-XR) XR capsule 150 mg oral DAILY zolpidem (AMBIEN) tablet 5 mg oral AT BEDTIME PRN Assessment: Sunshine Pleitez is a(n) 56 y.o. old female who was admitted for Malignant neoplasm of femalebreast (CMS-HCC) on 07/07/2017. She is POD#0 s/p wide local excision of the right lateral breast remnant with reconstruction. Patient Active Problem List Diagnosis ??? Papanicolaou [...] ??? Breast lump ??? Metastatic breast cancer (CMS-HCC) ??? Malignant neoplasm of female breast (CMS-HCC) Plan: -Gabapentin, oxycodone, tylenol for pain -IS/pulmonary hygiene -Regular diet -Home meds -IVF off with good PO intake -Monitor wound, ÓSCAR output -Keflex with drain in -Activity as tolerated Faizan Saldivar MD 07/07/2017 15:37 #[id number] * Tanisha Barber RN - 06/16/2017 1422 EST Sunshine Bueno Maik has been instructed as follows regarding medication administration for the day of the scheduled procedure. Date of Surgery: 07/07/17 Instructions for Taking Medications Day of Surgery Medication Sig Last Dose Hold DOS Take DOS calcium-vitamin D (OS-CHAR D) 500 mg(1,250mg) -200 unit per tablet Take 1 Tab by mouth 2 times dailywith breakfast and dinner. 06/30/17 DOXYLAMINE SUCCINATE (UNISOM ORAL) Take by mouth as needed. Takes half a tablet yes gabapentin (NEURONTIN) 100 mg capsule Take 2 Caps by mouth 2 times daily. yes ibuprofen (MOTRIN) 200 mg tablet Take 200-400 mg by mouth as needed. 06/30/17 letrozole (FEMARA) 2.5 mg tablet TAKE 1 TABLET DAILY yes MULTIVITS W-CA,FE,OTHER MIN (WOMEN'S DAILY FORMULA ORAL) Take by mouth daily. 06/30/17 omeprazole (PRILOSEC) 20 mg capsule Take 20 mg by mouth daily. yes palbociclib (IBRANCE) 125 mg capsule Take 100 mg by mouth daily. For 21 days on then 7 days off 06/16/2017 RED YEAST RICE EXTRACT ORAL Take 1,200 mg by mouth daily. 600mg 2x a day 06/30/17 valACYclovir (VALTREX) 500 mg tablet Take 1 Tab by mouth daily. yes venlafaxine (EFFEXOR-XR) 150 mg XR capsule Take 1 Cap by mouth daily. yes zolpidem (AMBIEN) 5 mg tablet Take 5 mg by mouth at bedtime as needed for Sleep. Reported on 11/01/2016 yes Instructed patient to avoid NSAID's and multivitamins/otc supplements for 1 week prior to surgery. Patient aware. documented in this encounter H&P Notes * Adolfo Fox MD - 07/07/2017 0720 EST ??Updated H+P PROBLEM: Rrecurrent right breast cancer ?? SUBJECTIVE: The patient is a 56-year-old woman who in 2003 had a large area of DCIS of her right breast. She underwent a mastectomy with implant reconstruction. She had a 2.7 area of DCIS; however, she had a positive margin in the lower outer quadrant. The patient opted not to do any additional ajit tments and in followup was noted to have a mass that developed in that area earlier this year. Thisinvolved the skin. Biopsy of that showed recurrent breast cancer. She underwent a metastatic workup, which showed lung nodules and mediastinal lymphadenopathy, which was biopsied showing metastatic breast cancer. The patient was therefore begun on systemic treatments. She has been getting letrozoleand palbociclib and that has been somewhat complicated by some mouth sores, had to come off that for a period of time. This can be coming back on soon in a lower dose. The patient had a repeat staging CT scan of the chest done in March. ?? OBJECTIVE: On exam today, is in no acute distress. She has no scleral icterus. There are no palpable neck masses. No cervical or supraclavicular lymph nodes are palpable. There were no nodules on thethyroid gland, no carotid bruits or JVD were noted. Lungs are clear to auscultation. Heart has a regular rate and rhythm, no S3, S4, murmurs are noted. Breast exam reveals the mastectomy on the right. In the lateral aspect of that there is a healed area of skin change, which is where her tumor had been. This appears to be all healed over at this point. Palpation reveals some very slight nodularity at that location. No other dominant masses are felt in the mastectomy bed. There are no palpable lymph nodes in the axilla. The left breast has no palpable abnormalities. There are no palpable lymphnodes in the axilla. On the left, there are no abdominal masses, no abdominal tenderness, no hepatoor splenomegaly was noted. ?? DIAGNOSTIC DATA: Ultrasound evaluation of the right breast demonstrates residual hypoechoic tissue at the site that was seen at the skin. This, however, has decreased in size. It currently measures about 1.1 x 1.2 x 0.9 cm, previously it was about 2.5 x 1.5 x 1.3 cm. It does appear to be very closeto the implant. No abnormal lymph nodes were seen in the internal mammary or axillary region. ?? The patient's staging CT scan that she had done earlier in the day showed that the lymphadenopathy in the mediastinum has resolved and that she has still numerous pulmonary nodules, but these are alleither stable or decreased in size. ?? ASSESSMENT: Therefore, the patient appears to be having a good response to her systemic treatments.She was interested in exploring the possibility of surgical removal of the primary site in the breast. The patient would like to have the implant exchange as it has had a week, and if that would be done then we can certainly excise that area of the tumor at the same time to try to achieve a negative margin on that location. The patient is going explore this further with plastic surgery and might think about doing this after the New Year's. Given the fact that the patient is having a good response to her systemic treatment I think that would be a reasonable option. ?? No changes in exam from above. Heart -RRR without murmur Lungs - clear to ausculation Plan is to perform wide excision of tumor site right lateral breast remnant. And Dr. Boss to do reconstruction of area. ?? Adolfo Fox MD 07/07/17 7:25 ?? cc: Linda Blancas MD, [address] [address] Augustina Colin MD, [facility] - Hematology Oncology [address] [place] [id number] Felipe Boss MD, [facility] - Plastic Surgery [address] [place] [address], [address] [address] ?? documented in this encounter OR Notes * OR Surgeon - Adolfo Fox MD - 07/07/2017 0000 EST OPERATIVE REPORT SERVICE DATE: 07/07/2017 PREOPERATIVE DIAGNOSIS: Recurrent right breast cancer. POSTOPERATIVE DIAGNOSIS: Recurrent right breast cancer. PROCEDURE: Partial mastectomy of recurrent breast cancer, right mastectomy site. SURGEON: Adolfo Fox MD WAX PUMPER: ANESTHESIA: General oral endotracheal tube. INDICATIONS: The patient is a 56-year-old woman who in 2003 had a large area of DCIS of her right breast. She underwent surgery by Dr Israel Kearney with a total mastectomy and implant reconstruction. Her final pathology showed a positive margin on the anterior margin. It was decided by the patientto not do any additional treatments after that. The patient subsequently developed a nodular area, which had eroded through the skin in that location. This was biopsied and found to be recurrent breast cancer. Metastatic workup showed disease within the lungs and mediastinum, which was biopsied andfound to be metastatic disease. The patient was treated with letrozole and palbociclib and had a good response. The ulcerated lesion on her breast healed up. She had some slight residual mass still present there. The patient wanted wide excision of that area for local control and she had an implantreconstruction and wanted to have that redone. FINDINGS: On operation, we were able to identify the location of the lesion based on the skin changes in the right breast. Excision of that was done with a wide margin and intraoperative evaluation of the margin showed all margins were clear of any obvious tumor. NARRATIVE: The patient was brought to the operating room. Prior to anesthesia, we did the WHO checklist. The patient was placed on the OR table in the supine position. General anesthesia with oral endotracheal tube was placed. She had Venodyne boots. She received 900 mg of clindamycin IV. Her arms were placed at about 90 degrees. Both right and left sides were then prepped and draped in sterile fashion. Prior to making any incisions, we confirmed the patient's name, date of , the procedureto be performed, confirmed that the antibiotics were given, which they were, Venodynes were on and functioning, and a postoperative pain plan. All that were present were in agreement. Once the patient was in appropriate position, we marked out a margin around the visible lesion, made an ellipse. We injected 0.5% Marcaine. The elliptical excision was then made, and then using electrocautery, dissected down through the underlying fibroglandular tissue that remained all the way down to the underlying implant. Because this extended down close to the implant, we excised the capsulearound the implant, gently retracting the implant to allow complete excision of this capsular area on the posterior aspect of our excision. Bleeding was controlled with electrocautery. Once that specimen was removed, it was marked and sent to pathology for intraoperative margin assessment. During that time, we made sure we had good hemostasis. We irrigated the wound with saline and bacitracin solution. Once that margin came back showing widely clear margins, the revision of the reconstruction was performed by Dr Felipe Boss. This will be dictated as a separate report. During this portion ofthe procedure, there were no complications. Sponge and instrument counts were correct. Blood loss was about 10 mL. Unless otherwise noted, there were no complications, no blood loss, no cultures obtained, no specimens removed, and no drains retained. Adolfo Fox MD 10 02 AM / Adolfo Aguilera. MD Wai cn Confirmation: [id number] Dictation ID: [id number] cc:Linda Boss MD * OR Surgeon - Felipe Boss MD - 07/07/2017 0000 EST OPERATIVE REPORT SERVICE DATE: 07/07/2017 PREOPERATIVE DIAGNOSIS: Recurrent breast cancer of right breast. POSTOPERATIVE DIAGNOSIS: Recurrent breast cancer of right breast. PROCEDURES: V to Y flap reconstruction of right breast with placement of allograft and tissue blade sharpener, infrared angiography. SURGEON: Felipe Boss MD WAX PUMPER: Deana Shaw PA-C (No qualified resident was available. Deana Shaw was a necessary and integral participant in the case and present for the entirety of the case. Deana Shaw served to provide aid in exposure, hemostasis, closure and other intraoperative technical functions that helped me carry out a safe operation with optimal results for the patient). ANESTHESIA: General endotracheal. INDICATIONS: Sunshine Bernstein is a 56-year-old female who has recurrent breast cancer that is now metastatic. She elected not to undergo radiation with her initial resection but has had very good response to her chemotherapy. She is here for excision of the cancer by Dr Fox (please see his notes for details). A lengthy discussion regarding her reconstruction was undertaken preoperatively. Please see office notes for details. Signed informed consent is on the chart. NARRATIVE: The patient was seen preoperatively and marked accordingly. She was then brought to the operative suite by Dr Fox. Please see his note for details. Following the completion of the resection and a good report on the early pathology, Dr Fox turned the case over to me after a surgicalhandoff. The patient was over draped. The previous saline implant was seen to be exposed on the right side of the breast. There were significant soft tissue deficit present. This measured 6 cm x 5 cm. Given tissue deficit, I was looking at the ability to primary close this area, realized that the patient had redundant tissue laterally that could be advanced as a V-Y flap if the tissue could be mobilized based on a network diagnostic support specialist. After dopplering out the flap and finding a network diagnostic support specialist, we dissected free the flap tissue with a very narrow pedicle and advanced this, temporarily stapled into position.The SPY camera was brought in and the flap appeared viable. At this point, I was comfortable with the surgical plan. A sheet of AlloDerm Contour was brought in and contoured to the defect. I used thesaline implant as a template to fit the AlloDerm into place. This was then sewn in with buried interrupted 3- 0 PDS sutures. I could not close the tissue even with the flap with the implant in place, so once the AlloDerm was sewn in, I reopened the top margin and replaced the saline implant with an Artoura blade sharpener. The pectoralis AlloDerm junction was then reclosed with buried interrupted 3-0 PDSsutures, the same sutures which had been used to sew the rest of the AlloDerm in place. The V to Y flap was then secured. Several deep sutures were placed to the Andres's component of the flap to de-tension the skin edges. The skin paddle was contoured slightly. The incisions were closed in 2 layers with buried interrupted 3-0 Monocryl and running 4-0 Monocryl. The area of the flap at the harvest site, Andres's equivalent, was closed with buried interrupted 3-0 Monocryl. The skin was closed with buried interrupted 3-0 Monocryl and running 4-0 Monocryl. A 15 Angolan sheldon drain was placed exiting laterally and was sewn in doubly. The entire site was then dressed with benzoin and 1-inch sterile paper tape. The patient was awakened, extubated and transferred to the recovery room in stable condition having toleratedthe procedure well. At the end of the case, all appropriate needle, instrument and sponge counts were correct. Postoperative brief noted no deficiencies. Third stage of the WHO checklist was appropriately completed. Unless otherwise noted, there were no complications, no blood loss, no cultures obtained, no specimens removed, and no drains retained. Felipe Boss MD 10 40 AM / Felipe Boss MD cn Confirmation: [id number] Dictation ID: [id number] documented in this encounter Miscellaneous Notes * Plan of Care - Rosa Maria Sevilla RN - 07/08/2017 1304 EST Problem: Daily Care Plan Goals Goal: Care Plan Documentation Data: Patient d/c from [facility] to home. Prescriptions sent to [facility] outpatient pharmacy, IV removed. Pt A/Ox3, pt denies SOB, nausea, chest pain. Pt tolerating PO intake, voiding, + flatus. Pt and spouse educated about drain care, return demonstration by successful. Pt rating pain 2-5/10 this shift. Action: AVS reviewed, care notes on keflex reviewed, questions answered. Call pak in reach, masimoin use, Q1 hr observations. Pt medicated for pain during shift and prior to d/c, see MAR. Drain teaching provided. Response: Patient left via wheelchair with all belongings. No complaints at this time. * Plan of Care - Terrell Perkins RN - 07/08/2017 0305 EST Problem: Daily Care Plan Goals Goal: Care Plan Documentation Outcome: Ongoing 07/07/17 1928 Care Plan Focus Area of Focus Pain/ Comfort Goal This Shift adequate pain control Data: POD#0-1s/p wide local excision of the right lateral breast remnant with reconstruction. Pt reports 4/10 pain. Dressing c/d/i. ÓSCAR with bloody drainage. Pt ambulating unit independently. Action: Admin PRN oxycodone and tylenol for pain (see eMar). Clustered care to promote rest. Call pak within reach. Response: Pt reports relief from pain interventions, 0/10. Pt appears to be sleeping comfortably atthis time. Will continue to monitor. TERRELL PERKINS RN 07/08/2017 3:01 * Plan of Care - Mirian Snider RN - 07/07/2017 1832 EST Problem: Daily Care Plan Goals Goal: Care Plan Documentation Outcome: Ongoing 07/07/17 1433 Care Plan Focus Area of Focus Pain/ Comfort Goal This Shift adequate pain control Data: Pt rating pain 0/10 upon arrival to the unit, increased to 5/10. Action: Requested that percocet be changed to separate orders for oxycodone and acetaminophen. Medicated w/ oxycodone, offered acetaminophen when available. Response: Pain 2/10 after intervention. Pt declined acetaminophen at this time. Mirian Snider RN 07/07/2017 18:30 * Brief Op Note - James Lieberman MD - 07/07/2017 1816 EST Department of Plastic Surgery Brief Op Note Date of Surgery: 07/07/2017 Surgeon: Dr. Fox, Dr. Boss Assistants: Chalo MS4 Pre-Op Diagnosis: Recurrent R breast cancer Post-Op Diagnosis: Same Procedure(s): Wide local excision of R chest wall recurrent breast cancer, R post masectomy prosthesis breast reconstruction with alloderm with V-Y flap Anesthesia Type: General Tourniquet Time: 0 minutes Estimated Blood Loss: Minimal Fluids: Crystalloids 1,000 mL X-rays reviewed: yes Implants: R breast blade sharpener Closure: Skin was closed with a V-Y surgical flap, R ÓSCAR drain in place Disposition and Condition: PACU in Good condition per anesthesia. Plan: Pain control: APAP 650 Q4HPRN, Oxocodone 5mg IR Q4HPRN, Gabapentin DVT ppx : Ambulate Antibiotics: Cephalexin 500mg Q6H x7 days Activity: As tolerated Diet: advance with return to bowel sounds CHRISTINE dunn POD#1 Dispo planning ongoing Augustine Faustinmiranda 07/07/2017 18:17 Pager #[phone] * Anesthesia Post-Eval - Pamella Schmid MD - 07/07/2017 1517 EST Anesthesia Post op Note Sunshine Myles Maik B685/01 Anesthesia received: General; Vital Signs: Temp: 36.7 ??C (98.1 ??F), Heart Rate: 73 BPM, BP: 115/63, Resp: 18, SpO2: 96 % Vital signs Stable: Yes Consciousness: Awake, Alert Patient's participation in evaluation:Able to participate Temperature Status: Normothermic Respiratory Status: Airway patent Supplemental O2: Room air Oxygen Saturation: Within patient's normal range Cardiovascular Status: Within patient's normal range Post-op Hydration: Adequate Nausea / Vomiting: None Pain Control: Adequate Current Pain Score: Numeric Pain Level (Scale 1-10): 0 Post-op Assessment: Tolerated procedure well, Patient satisfied with anesthesia, No evidence of recall Disposition: Inpatient Complications: No apparent anesthetic complications Sendy and her , Nitish, are very pleased with the anesthetic care Sendy received today. Pamella Schmid MD 07/07/2017 15:17 * Coding Query - Felipe Boss MD - 07/07/2017 1255 EST CODING QUERY - PLEASE EDIT Physicians: Please document your response by deleting the three asterisks and editing the message. Click Sign to sign the note and send your response. In order to ensure that the reported codes best reflect your patient???s condition, further clarification is required. Please consider the clinical presentation, workup, and treatment for this patient when responding. The patient???s chart can be reviewed electronically in [facility]. We are unable to complete the coding for 07/07/2017 without further clarification of the following: What was the length of the V-Y flap: ____9 cm If you have problems completing this form, please call the Help Desk at [phone]. If you have any questions about the content of this query, please contact Nicanor Ly med spa manager contact at [email or web address]. documented in this encounter Plan of Treatment Upcoming Encounters Date Type Department Care Team (Late st Contact Info) Description 04/02/2024 10:30 EDT Appointment [facility] Interventional Radiology Unit [address] [place] [address] [phone] 04/02/2024 15:15 EDT Office Visit [facility] Surgical Oncology - [address] [phone] Adolfo Fox MD 111 [facility], Level 2 [place] [phone] 04/05/2024 9:30 EDT Telemedicine [facility] - [facility] Palliative Care Services [address] [place] [address] [phone] Chichi Woods MD 111 [facility], [address] [phone] 04/11/2024 15:[address] [facility] Hematology & Oncology - [address] [phone] Alisson Carreon MD [address] [place] [address] 2 [place] [phone] 04/13/2024 13:[address] [facility] Hematology & Oncology - [address] [phone] 04/13/2024 14:[address] [facility] Hematology & Oncology [address] [phone] 04/16/2024 10:00 EST Telemedicine [facility] - [facility] Palliative [facility] Services [address] [place] [address] [phone] Chichi Woods MD [address] [place] [phone] 04/24/2024 9:00 EST Appointment [facility] Radiology CT Outpatient - [address] [id number] 04/24/2024 11:00 EST Appointment [facility] Breast Imaging - [address] [phone] 04/27/2024 12:[address] [facility] Hematology & Oncology - [address] [phone] 05/02/2024 15:[address] [facility] Hematology & Oncology - [address] [phone] Alisson Carreon MD [address] [place] [address], [facility] 2 [place] [phone] 05/04/2024 10:15 EST Ancillary Procedure [facility] Cardiology - [address] [place] [address] 05/04/2024 11:[address] [facility] Hematology & Oncology [address] [address] 05/04/2024 12:[address] [facility] Hematology & Oncology [address] [address] 06/12/2024 13:00 EST Appointment [facility] Radiology CT - [address] [address] Scheduled Referrals Name Type Priority Associated Diagnoses Order Schedule PROVIDER FOLLOW-UP INSTRUCTIONS Outpatient Referral Routine Ordered: 07/08/2017 PROVIDER FOLLOW-UP INSTRUCTIONS Outpatient Referral Routine Ordered: 07/08/2017 documented as of this encounter Procedures Procedure Name Priority Date/Time Associated Diagnosis Comments IMPLANT RECORD - SCANNED 07/14/2017 22:55 EST IMPLANT RECORD - SCANNED 07/12/2017 10:46 EST ECG REPORT - SCANNED 07/12/2017 10:46 EST COMPLETE BLOOD COUNT Routine 07/08/2017 6:42 EST SURGICAL PATHOLOGY Routine 07/07/2017 9:30 EST documented in this encounter Results * IMPLANT RECORD - SCANNED (07/14/2017 22:55 EST) 07/14/2017 22:5 5 EST Scan 2 Welt Maker PROCEDURE/MINOR AJ GICAL ORDERABLES * IMPLANT RECORD - SCANNED (07/12/2017 10:46 EST) 07/12/2017 10:4 6 EST Scan 2 Welt Maker PROCEDURE/MINOR AJ GICAL ORDERABLES * ECG REPORT - SCANNED (07/12/2017 10:46 EST) 07/12/2017 10:4 6 EST Scan 2 Welt Maker PROCEDURE/MINOR AJ GICAL ORDERABLES * (ABNORMAL) HEMAGRAM (07/08/2017 6:42 EST) WBC 13.77(H) 4.0 - 12.4 K/cmm 07/08/2017 7:35 [facility] RBC 3.48(L) 3.86 - 5.04 M/cmm 07/08/2017 7:35 [facility] Hemoglobin 12.7 11.6 - 15.2 gm/dl 07/08/2017 7:35 [facility] HCT 36.4 34.9 - 44.4 % 07/08/2017 7:35 [facility] MCV 105(H) 81 - 98 fl 07/08/2017 7:35 [facility] MCH 36.5(H) 26.7 - 33.3 pg 07/08/2017 7:35 [facility] MCHC 34.9 32.1 - 35.9 gm/dl 07/08/2017 7:35 [facility] RDW-CV 13.2 <14.7 % 07/08/2017 7:35 [facility] RDW-SD 51.2(H) <50.4 fl 07/08/2017 7:35 [facility] PLT 308 141 - 377 K/cmm 07/08/2017 7:35 [facility] MPV 10.0 9.5 - 12.7 fl 07/08/2017 7:35 [facility] Blood specimen (specimen) BLOOD SPECIMEN / Unknown 07/08/2017 6:42 EST 07/08/2017 7:23 EST Felipe Boss MD FACS HEMATOLOGY & PF4 ORDERABLES [facility] [address] [place] [address] * SURGICAL PATHOLOGY (07/07/2017 9:30 EST) Pathology Report: SURGICAL PATHOLOGY REPORT Reports generated via electronic interface contain original data; however they are lacking the format of the original report. Caution should be taken when reading/interpreting unformatted reports. Name: ? ADRIANAJERSEYPANTERAANALISASUNSHINE A ? Accession #: ? [id number] ? : ? 1960 (Age: 56) ??F ?Collect Date: ? 07/07/2017 ? Location: ? B006 ? Receive Date: ? 07/07/2017 ? Provider: ADOLFO FOX MD Copy to: FELIPE BLANCAS MD ? Final Pathologic Diagnosis: SUMMARY DIAGNOSIS FOR MALIGNANT BREAST TUMORS AJCC (8th edition): ypT1c pNX Laterality: ?Right ? Specimen: ?Wide excision Tumor Type: ?Invasive ductal Tumor Size: ?1.9 cm in greatest dimension Tumor Location: ? Lower outer quadrant; 8 o'clock Sellers Combined Histologic Scores: ? Tubules: ?2 ? Nuclei: ?2 ? Mitotic Rate: ? 1 (actual count 2/10 HPF with field diameter of 0.54 mm) ? Total: ?5 Differentiation: ? Well Margins: ?Negative (5.0 mm from closest margin, inferior) DCIS: ? Not identified % DCIS: ?N/A DCIS margins: ? N/A LVI: ? Present Lymph nodes: ? None submitted ER/VA: ?See separate report Her2/mack: ? See separate report FINAL PATHOLOGIC DIAGNOSIS: CHEST WALL, RIGHT ANTERIOR, WIDE EXCISION: - Adenocarcinoma, invasive, ductal type, well differentiated. ??See comment. ?? - Tumor location: ??Lower outer quadrant. - Tumor position: ??8 o'clock. - Tumor measures 1.9 cm in greatest dimension (AJCC: ypT1c, pNX). - Surgical resection margins negative; invasive tumor present: ??- 5.0 mm from inferior margin. ??- 6.0 mm from posterior margin. ??- Greater than 1.0 cm from remaining margins. - Lymphovascular invasion is present. - Neoadjuvant treatment effect: ??Mild. - Ductal carcinoma in situ (DCIS) is not identified. - Skin: ??With scar, negative for malignancy. - Skeletal muscle: ??Negative for malignancy. - Prior biopsy site identified. ?? 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 ??In October 2016, she developed a skin lesion of the right reconstructed breast, a biopsy of which showed nuclear grade 2 adenocarcinoma, consistent with breast carcinoma involving epidermis and dermis. ??Imaging showed mediastinal adenopathy and a core biopsy and FNA of a subcarinal lymph node was also performed in October of 2016 which showed metastatic breast carcinoma. She was subsequently treated with letrozole and palbociclib. ??In the current specimen, invasive ductal carcinoma is seen in the subcutaneous tissue as scattered tubular structures embedded in dense fibrous tissue. ??Estrogen and progesterone receptor studies as well as a Her2 immunoassay have been ordered, the results of which will be issued in separate procedure reports. ??Teller Coordinator slides of this case were reviewed at the intradepartmental consultation conference. ??(Dr. Ahumada)/samia ? Document reviewed and electronically signed by: ? SHONDA AHUMADA MD ? Report ??Date: 07/12/2017 16:28 By the signature above, the attending physician certifies that he/she has personally conducted a gross and/or microscopic examination of the described specimens and rendered or confirmed the above diagnosis. Clinical History: Recurrent breast cancer ? Intraoperative Interpretation: BREAST, RIGHT, WIDE EXCISION (GROSS MARGIN CHECK): - Tumor measures 6.0 mm from posterior margin and 8.0 mm from superior margin. There is a fibrous tendril extending from the mass to the posterior margin, but may be reactive because it is not as firm as the main mass. ??Defer to permanents for final diagnosis. - Results communicated to Dr. Fox at 9:49 AM on 07/07/2017. ??Dr. Ad Cain 07/07/2017 ? Gross Description: ? Received fresh labelled with proper patient identification (initials O, K) and A. wide excision right breast cancer, one black superior, two black lateral is an oriented portion of fibrofatty tissue (35 g, 5.5 cm from superior to inferior x 6.0 cm from medial to lateral x 2.8 cm from anterior to posterior). ??There is an accompanying specimen mammogram. The specimen is sectioned from medial (level 1) to lateral (level 6). There is a piece of attached moura-white, centrally retracted skin (4.8 cm medial to lateral x 1.8 cm superior to inferior), without any lesions. ? In levels 3 and 4, there is a moura-white firm mass (3.4 x 1.4 x 1.3 cm) with ill defined borders. ??The mass is 0.6 cm from the nearest posterior margin, 0.8 cm from the superior margin, and greater than 1.0 cm from all remaining margins. Neither a biopsy site nor clip is identified. ? The remaining cut surface is composed of lobulated adipose tissue with a small amount of moura-white fibrous tissue. ? An intraoperative gross margin examination is performed with the interpretation rendered as above. Teller Coordinator sections are submitted as follows: INK MADSEN Skin-anterior Black-posterior Blue-superior Green-inferior ? Red-medial [place]-lateral ? BLOCK MADSEN 1- ??level 1, medial margin, two mortician supplies sales representative perpendicular sections 2-3- ??level 2, superior half, including skin 4-5- ??level 3, superior third, bisected 6-7- ??level 3, middle third, bisected 8-9- ??level 3, inferior third, thinned 10-14- ??level 4, superior half, thinned 15-18- ??level 4, inferior half, thinned 19- ??level 5, including posterior margin 20- ??level 6, lateral margin, two mortician supplies sales representative perpendicular sections Time removed from patient: 0923 hrs on 07/07/2017 Time in formalin: 0956 hrs on 07/07/2017 Time out of formalin: 1900 hrs on 07/08/2017 Dr. Walker 07/08/2017 3:59 PM ? Her 2 IMMUNOPEROXIDASE REPORT ? Date Ordered: ? 07/13/2017 ? Status: ?? Signed Out ?Date Complete: ? 07/13/2017 ? By: ??Racheal Arce ? Date Reported: ? 07/13/2017 ? Interpretation ASSAY RESULTS Her2 SCORE: ?1+ TUMOR LOCATION: Right chest wall, anterior ? COLD ISCHEMIC TIME AND TOTAL FORMALIN FIXATIVE TIME APPROPRIATE: Yes CELLS WITH COMPLETE MEMBRANE STAINING: None MEMBRANE STAINING INTENSITY: N/A PARTIAL MEMBRANE STAINING: Present in 20% of cells CYTOPLASMIC STAINING: Absent STAINING PATTERN: Homogeneous STAINING IN BENIGN EPITHELIUM: N/A THE HER2 ASSAY PERFORMED IS INTERPRETED NEGATIVE. ?? Description Tissue submitted: Paraffin embedded tissue block labelled [id number] (7) from [facility] ? Fixative: ??Formalin ??(This immunohistochemical assay is intended for paraffin-embedded tissue fixed in 10% neutral buffered formalin for 6-72 hours; 18-24 hours with maximum tissue thickness of 3-4 millimeters is recommended for best assay performance. ??Her2 should not be performed on alcohol fixed tissues.) The assay was performed under appropriate conditions according to the acquisitions librarian's instructions with appropriate assay and tissue controls using an Anti-Her2 (4B5) Rabbit Monoclonal Antibody ([place]). Her2 IHC Scoring Guidelines (invasive tumor component only) 0 ? negative ?No staining or membrane staining in less than 10% of cells 1+ ? negative ?Faint partial membrane staining in more than 10% of cells 2+ ? weakly positive ?Moderate complete membrane staining in more than 10% of cells 3+ ? positive ? Strong complete membrane staining in more than 10% of cells Reference: ??ASCO-CAP Recommendations for Her2 Testing. J Clin Oncol 2013; epub (www.jco.org Mar 19, 2013) Document reviewed and electronically signed by: ? SHONDA AHUMADA MD ? Report date: 07/13/2017 By the signature above, the attending physician certifies that he/she has personally conducted a gross and/or microscopic examination of the described specimens and rendered or confirmed the above diagnosis. ESTROGEN AND PROGESTERONE RECEPTOR IMMUNOPEROXIDASE STAINS ? Date Ordered: ? 07/13/2017 ? Status: ?? Signed Out ?Date Complete: ? 07/13/2017 ? By: ??Racheal Arce ? Date Reported: ? 07/13/2017 ? Interpretation CHEST WALL, RIGHT ANTERIOR, WIDE EXCISION: - Adenocarcinoma, invasive. - Positive for estrogen receptors (in greater than 90% of tumor cells). ? - Nuclear staining intensity: Strong. - Negative for progesterone receptors. Comment Cold ischemic time and total formalin fixation time appropriate: ??Yes. ??(Dr. Ahumada)/samia Description Tissue submitted: Paraffin embedded tissue block labelled [id number] (7) from [facility] Immunohistochemical assays for estrogen receptors (SP1, Gilson) and progesterone receptors (16, Leica) have been performed on this specimen. Intranuclear receptor complexes were visualized on tissue sections using an HRP polymer immunohistochemical technique. ??This assay is intended for paraffin-embedded tissue fixed in 10% neutral buffered formalin for 6-72 hours. ? Results are reported as negative (<1% nuclear staining) or positive with the proportion of positive cells noted. ??Estrogen receptor expression in <5% of tumor cells may not have a strong interaction with estrogen receptor modulators such as Tamoxifen. ??(Dr. Ahumada)/samia Reference: ??ASCO-CAP Guideline Recommendations for IHC testing of ER and VA. J Clin Oncol 2010;28:2993-9290. NOTE: ??One or more of the reagents used in immunohistochemical testing in this case may not have been cleared or approved by the U.S. Food and Drug Administration (FDA). ??The FDA has determined that such clearance or approval is not necessary. ??These tests are used for clinical purposes. ??They should not be regarded as investigational or for research. ??These reagents' performance characteristics have been determined by [facility]. This laboratory is certified under the Clinical Laboratory Improvement Amendments of 1988 (CLIA-88) as qualified to perform high complexity clinical laboratory testing. Document reviewed and electronically signed by: ? SHONDA AHUMADA MD ? Report date: 07/13/2017 By the signature above, the attending physician certifies that he/she has personally conducted a gross and/or microscopic examination of the described specimens and rendered or confirmed the above diagnosis. End of Report [facility] 07/07/2017 9:30 EST 07/07/2017 9:30 EST Adolfo Fox MD PATHOLOGY ORDERABLES [facility] [address] [place] [address] documented in this encounter Visit Diagnoses Diagnosis Malignant neoplasm of female breast (HCC-CMS)- Primary Malignant neoplasm of breast (female), unspecified site Malignant neoplasm of female breast, unspecified estrogen receptor status, unspecified laterality, unspecified site of breast (HCC-CMS) documented in this encounter Administered Medications Inactive Administered Medications - up to 3 most recent administrations Medication Order MAR Action Action Date Dose Rate Site acetaminophen (TYLENOL) tablet 650 mg 650 mg, oral, EVERY 4 HOURS PRN, Starting on Michelle 07/07/17 at 1348, Until 07/08/17 at 1527, Pain, Routine Given 07/08/2017 12:11 EST 650 mg Given 07/08/2017 2:26 EST 650 mg Given 07/07/2017 21:26 EST 650 mg calcium-vitamin D (OS-CHAR D) 500 mg(1,250mg) -200 unit per tablet 1 Tab 1 Tablet, oral, 2 TIMES DAILY WITH BREAKFAST & DINNER, First dose on Michelle 07/07/17 at 1700, Until Discontinued, Routine Given 07/08/2017 8:35 EST 1 Tablet Given 07/07/2017 17:30 EST 1 Tablet cephALEXin (KEFLEX) capsule 500 mg 500 mg, oral, EVERY 6 HOURS, 28 doses, First dose on Michelle 07/07/17 at 1800, Last dose on Michelle 07/14/17 at 1200, Routine, On Unit Given 07/08/2017 12:12 EST 500 mg Given 07/08/2017 6:13 EST 500 mg Given 07/07/2017 23:28 EST 500 mg clindamycin (CLEOCIN) IVPB 900 mg 900 mg, intravenous, Administer over 30 Minutes, PRE-OP ONCE, 1 dose, On Michelle 07/07/17 at 0800, Routine, Pre-Op DOS Rx Approved Given 07/07/2017 8:35 EST 900 mg gabapentin (NEURONTIN) capsule 300 mg 300 mg, oral, USER SPECIFIED (2 times per day), First dose on Michelle 07/07/17 at 1500, Until Discontinued, Routine Given 07/08/2017 8:41 EST 300 mg Given 07/07/2017 14:42 EST 300 mg gabapentin (NEURONTIN) capsule 600 mg 600 mg, oral, AT BEDTIME, First dose on Michelle 07/07/17 at 2100, Until Discontinued, Routine Given 07/07/2017 21:26 EST 600 mg lactated ringers (LR) infusion at 25 mL/hr, intravenous, CONTINUOUS, Starting on Michelle 07/07/17 at 0800, Until Michelle 07/07/17 at 1535, Routine, Pre-Op DOS Rx Approved New Bag 07/07/2017 8:06 EST 25 mL/hr lactated ringers (LR) infusion at 75 mL/hr, intravenous, CONTINUOUS, Starting on Michelle 07/07/17 at 1230, Until Michelle 07/07/17 at 1411, Routine, Recovery (only) Rate Documented 07/07/2017 12:44 EST 75 mL/hr letrozole (FEMARA) tablet 2.5 mg 2.5 mg, oral, DAILY, First dose on Michelle 07/07/17 at 1430, Until Discontinued, Routine Given 07/08/2017 8:41 EST 2.5 mg oxyCODONE (ROXICODONE) immediate release tablet 5 mg 5 mg, oral, EVERY 4 HOURS PRN, Starting on Michelle 07/07/17 at 1534, Until Tue07/08/17 at 1527, Pain, Routine Given 07/08/2017 12:48 EST 5 mg Given 07/08/2017 8:35 EST 5 mg Given 07/08/2017 2:26 EST 5 mg pantoprazole (PROTONIX) tablet 40 mg 40 mg, oral, DAILY, First dose on Michelle 07/07/17 at 1430, Until Discontinued Given 07/08/2017 8:35 EST 40 mg valACYclovir (VALTREX) tablet 500 mg 500 mg, oral, DAILY, 2 doses, First dose on Michelle 07/07/17 at 1430, Last dose on Tue07/08/17 at 0900, Routine Given 07/08/2017 8:35 EST 500 mg venlafaxine (EFFEXOR-XR) XR capsule 150 mg 150 mg, oral, DAILY, First dose on Michelle 07/07/17 at 1430, Until Discontinued, Routine Given 07/08/2017 8:35 EST 150 mg zolpidem (AMBIEN) tablet 5 mg 5 mg, oral, AT BEDTIME PRN, Starting on Michelle 07/07/17 at 1410, Until Tue07/08/17 at 1527, Sleep, Routine Given 07/07/2017 21:27 EST 5 mg documented in this encounter Discontinued Medications Medication Sig Discontinue Reason Start Date End Da te gabapentin (NEURONTIN) 300 mg capsule Take 2 Caps by mouth at bedtime. Patient Stopped Taking 08/16/2012 06/16/2017 lidocaine (LIDOCAINE) 2 % solutionIndications:Me tastatic breast cancer,Mouth sores 5 mL by mucous membrane route as needed for Pain. Apply to mouth sores as needed. Patient Stopped Taking 01/13/2017 06/16/2017 acetaminophen (TYLENOL) 325 mg tablet Take 650 mg by mouth every 4 hours as needed for Pain. 07/08/2017 documented as of this encounter Historical Medications * This list may reflect changes made after this encounter. Medication Sig Dispensed Refills Start Date End Date acetaminophen (TYLENOL) 325 mg tablet Take 650 mg by mouth every 4 hours as needed for Pain. 07/08/2017 added in this encounter Active and Recently Administered Medications Times are shown in EST. Scheduled Medication Order 07/06/2017 07/07/2017 07/08/2017 calcium-vitamin D (OS-CHAR D) 500 mg(1,250mg) -200 unit per tablet 1 Tab 1 Tablet, oral, 2 TIMES DAILY WITH BREAKFAST & DINNER, First dose on Michelle 07/07/17 at 1700, Until Discontinued, Routine 1730 (Given - Provider: Mirian Snider RN) 0835 (Given - Provider: Rosa Maria Sevilla, SHELLEY) cephALEXin (KEFLEX) capsule 500 mg 500 mg, oral, EVERY 6 HOURS, 28 doses, First dose on Michelle 07/07/17 at 1800, Last dose on Michelle 07/14/17 at 1200, Routine, On Unit 1730 (Given - Provider: Mirian Snider RN)2328 (Given - Provider: Terrell Perkins RN) 0613 (Given - Provider: Terrell Perkins RN)1212 (Given - Provider: Rosa Maria Sevilla, SHELLEY) clindamycin (CLEOCIN) IVPB 900 mg (COMPLETED) 900 mg, intravenous, Administer over 30 Minutes, PRE-OP ONCE, 1 dose, On Michelle 07/07/17 at 0800, Routine, Pre-Op DOS Rx Approved 0835 (Given - Provider: Brianda Severino RN) gabapentin (NEURONTIN) capsule 300 mg 300 mg, oral, USER SPECIFIED (2 times per day), First dose on Michelle 07/07/17 at 1500, Until Discontinued, Routine 1442 (Given - Provider: Mirian Snider RN) 0841 (Given - Provider: Rosa Maria Sevilla, SHELLEY) gabapentin (NEURONTIN) capsule 600 mg 600 mg, oral, AT BEDTIME, First dose on Michelle 07/07/17 at 2100, Until Discontinued, Routine 2126 (Given - Provider: Terrell Perkins RN) letrozole (FEMARA) tablet 2.5 mg 2.5 mg, oral, DAILY, First dose on Michelle 07/07/17 at 1430, Until Discontinued, Routine 1420 (Not Given - Provider: Mirian Snider RN - Reason: Other) 0841 (Given - Provider: Rosa Maria Sevilla, SHELLEY) pantoprazole (PROTONIX) tablet 40 mg 40 mg, oral, DAILY, First dose on Michelle 07/07/17 at 1430, Until Discontinued 1420 (Not Given - Provider: Mirian Snider RN - Reason: Other) 0835 (Given - Provider: Rosa Maria Sevilla, SHELLEY) valACYclovir (VALTREX) tablet 500 mg 500 mg, oral, DAILY, 2 doses, First dose on Tue07/07/17 at 1430, Last dose on Tue07/08/17 at 0900, Routine 1420 (Not Given - Provider: Mirian Snider RN - Reason: Other) 0835 (Given - Provider: Rosa Maria Sevilla, SHELLEY) venlafaxine (EFFEXOR-XR) XR capsule 150 mg 150 mg, oral, DAILY, First dose on Michelle 07/07/17 at 1430, Until Discontinued, Routine 1420 (Not Given - Provider: Mirian Snider RN - Reason: Other) 0835 (Given - Provider: Rosa Maria Sevilla RN) Continuous Medication Order 07/06/2017 07/07/2017 07/08/2017 lactated ringers (LR) infusion (CANCELED) at 25 mL/hr, intravenous, CONTINUOUS, Starting on Michelle 07/07/17 at 0800, Until Michelle 07/07/17 at 1535, Routine, Pre-Op DOS Rx Approved 0806 (New Bag - Provider: Ayaka Severino RN)1244 (Completed - Provider: Donald Eldridge, SHELLEY) lactated ringers (LR) infusion (CANCELED) at 75 mL/hr, intravenous, CONTINUOUS, Starting on Tue07/07/17 at 1230, Until Michelle 07/07/17 at 1411, Routine, Recovery (only) 1244 (Rate Documented - Provider: Donald Eldridge, RN) PRN Medication Order 07/06/2017 07/07/2017 07/08/2017 acetaminophen (TYLENOL) tablet 650 mg 650 mg, oral, EVERY 4 HOURS PRN, Starting on Tue07/07/17 at 1348, Until Tue07/08/17 at 1527, Pain, Routine 1244 (Not Given - Provider: Donald Eldridge, SHELLEY - Reason: Other - Comment: Tylenol 1g given at 11:49 in OR)2126 (Given - Provider: Terrell Perkins RN) 022 (Given - Provider: Terrell Perkins, RN)1211 (Given - Provider: Rosa Maria Sevilla, SHELLEY) diphenhydrAMINE (BENADRYL) capsule 25 mg 25 mg, oral, AT BEDTIME PRN, Starting on Michelle 07/07/17 at 1410, Until Tue07/08/17 at 1527, Sleep oxyCODONE (ROXICODONE) immediate release tablet 5 mg 5 mg, oral, EVERY 4 HOURS PRN, Starting on Michelle 07/07/17 at 1534, Until Tue07/08/17 at 1527, Pain, Routine 1618 (Given - Provider: Mirian Snider RN)2125 (Given - Provider: Terrell Perkins RN) 225 (Given - Provider: Terrell Perkins, SHELLEY)0835 (Given - Provider: Rosa Maria Sevilla, SHELLEY)1248 (Given - Provider: Rosa Maria Sevilla, SHELLEY) zolpidem (AMBIEN) tablet 5 mg 5 mg, oral, AT BEDTIME PRN, Starting on Michelle 07/07/17 at 1410, Until Tue07/08/17 at 1527, Sleep, Routine 2126 (Given - Provider: Terrell Perkins RN) documented in this encounter Orders Medications Ordered That Vj ht Not Have Been Administered Count Last Ordered Date First Ordered Date atropine 0.1 mg/mL syringe 0.5 mg 018 diphenhydrAMINE (BENADRYL) capsule 25 mg 07/07/2017 diphenhydrAMINE (BENADRYL) i njection 12.5 mg 07/07/2017 fentaNYL citrate (PF) 50 mcg /mL injection 25-50 mcg 07/07/2017 gabapentin (NEURONTIN) capsule 200 mg HYDROmorphone injection (DIL AUDID) 0.5 mg/1 mL syringe 0.25-0.5 mg 07/07/2017 naloxone (NARCAN) injection 0.2 mg 2017 ondansetron (PF) (ZOFRAN) injection 4 mg 07/07/2017 oxyCODONE (ROXICODONE) immed iate release tablet 5-10 mg 07/07/2017 oxyCODONE-acetaminophen (PER COCET) 5-325 mg per tablet 1-2 Tab 1 07/07/2017 Diet Count Last Ordered Date First Orde red Date DISCHARGE DIET 1 07/08/2017 Nursing Count Last Ordered Date First Orde red Date ACTIVITY INSTRUCTIONS 1 07/08/2017 BATHING INSTRUCTIONS 1 07/08/2017 WOUND CARE INSTRUCTIONS 2 07/08/[address] SEQUENTIAL COMPRESSION DEVICE 1 07/07 VTE PHARMACOLOGIC PROPHYLAXI S CURRENTLY ORDERED OR ON ALTERNATIVE THER 1 07/07/2017 Admission Count Last Ordered Date First Orde red Date STATUS: OUTPATIENT SURGICAL OP BED/SERVICES 2 07/07/2017 Transfer Count Last Ordered Date First Orde red Date NOTIFY PPS OF DISCHARGE COMPLETE 1 07/08/19 18 NOTIFY PPS PATIENT ARRIVAL IN PACU 1 2017 NOTIFY PPS PATIENT TRANSFERRED OUT OF PACU 1 07/07/2017 PPS NOTIFICATION OF PATIENT ARRIVAL ON UNIT 1 07/07/2017 Discharge Count Last Ordered Date First Orde red Date DISCHARGE PATIENT 1 07/08/2017 documented in this encounter Care Teams Refuse Collector Supervisor Relationship Specialty Start Date End Date Linda Blancas MD [facility] [address] [place] [address] PCP - General 01/06/11 documented as of this encounter
--- OUTSIDE RECORDS SUMMARY | 2024-03-20 15:06 | XMS_ITS | Encounter Summary ---
Author Organization [facility] Address [address] [place] [address] Care Team Providers Care Dining Room Busser Name Role Phone Linda Blancas MD Primary Care Provider [phone] Reason for Visit * Reason Comments Other Encounter Details Date Type Department Care Team (Late st Contact Info) Description 09/04/2017 Refill [facility] Hematology & Oncology - [address] [id number] Nadeen Blood, PANitaC [address] [place] [address], Level [address] [place] [phone] Other Social History Tobacco Use [...] DAY CYCLE 21 Cap 5 09/06/2017 02/07/2018 documented in this encounter Miscellaneous Notes * Telephone Encounter - Quita Rob RN - 09/06/2017 1004 EDT Renewal prescription for ibrance 100mg tabs has been faxed to [facility] pharmacy. documented in this encounter Plan of Treatment Upcoming Encounters Date Type Department Care Team (Late st Contact Info) Description 04/02/2024 10:30 EDT Appointment [facility] Interventional Radiology Unit [address] [place] [address] [phone] 04/02/2024 15:15 EDT Office Visit [facility] Surgical Oncology - [address] [phone] Adolfo Carreno MD 111 [facility], Level [address] [place] [phone] 04/05/2024 9:30 EDT Telemedicine [facility] - [facility] Palliative Care Services [address] [place], [place] [phone] Chichi Woods MD [address] [phone] 04/11/2024 15:00 EDT Telemedicine [facility] Hematology & Oncology - [facility] [address] [place], [place] [phone] Alisson Carreon MD [address] [place] [address], [facility] 2 [place] [phone] 04/13/2024 13:30 EDT Appointment [facility] Hematology & Oncology - [address] [phone] 04/13/2024 14:00 EDT Appointment [facility] Hematology & Oncology - [address] [phone] 04/16/2024 10:00 EST Telemedicine [facility] - [facility] Palliative [facility] Services [address] [place] [address] [phone] Chichi Woods MD [address] [place] [phone] 04/24/2024 9:00 EST Appointment [facility] Radiology CT Outpatient - [address] [phone] 04/24/2024 11:00 EST Appointment [facility] Breast Imaging - [facility] [address] [phone] 04/27/2024 12:00 EST Appointment [facility] Hematology & Oncology - [address] [phone] 05/02/2024 15:00 EST Telemedicine [facility] Hematology & Oncology - [address] [phone] Alisson Carreon MD [address] [place] [address], [facility] [address] [place] [phone] 05/04/2024 10:15 EST Ancillary Procedure [facility] Cardiology - [address] [place], [place] [phone] 05/04/2024 11:30 EST Appointment [facility] Hematology & Oncology - [address] [address] 05/04/2024 12:00 EST Appointment [facility] Hematology & Oncology [address] [phone] 06/12/2024 13:00 EST Appointment [facility] Radiology CT - [address] [address] documented as of this encounter Visit Diagnoses Diagnosis Metastatic breast cancer- Primary documented in this encounter Discontinued Medications Medication Sig Discontinue Reason Start Date End Da te palbociclib (IBRANCE) 125 mg capsuleIndications:Metast atic breast cancer Take 100 mg by mouth daily. For 21 days on then 7 days off Dose adjustment 03/16/2017 09/06/2017 documented as of this encounter Care Teams Dining Room Busser Relationship Specialty Start Date End Date Linda Blancas MD [facility] [address] [place] [address] PCP - General 01/06/11 documented as of this encounter
--- OUTSIDE RECORDS SUMMARY | 2024-03-20 15:06 | XMS_ITS | Encounter Summary ---
Author Organization [facility] Address [address] [place] [address] Care Team Providers Care Director Of Casework Services Name Role Phone Linda Blancas MD Primary Care Provider [phone] Reason for Visit * Reason Comments Follow-up 07/07/17 - TE recon Encounter Details Date Type Department Care Team (Late st Contact Info) Description 07/21/2017 11:00 EST Office Visit [facility] Plastic, Reconstructive & Cosmetic Surgery - [address], [address] [place] [address] Karen Singh PA-C [address] [place] [phone] Surgical follow-up care (Primary Dx) Social [...] Progress Notes * Karen Singh PA - 07/21/2017 1100 EST SUBJECTIVE: Sunshine Bernstein returns in follow up from excision of recurrent right breast cancer and V to Y flap reconstruction of right breast with placement of allograft and tissue expanderon 07/07/2017. She reports some skin irritation from adhesive use. She has continued to take antibiotics following drain removal; Motrin PRN for pain. OBJECTIVE: On examination, she is in no distress. Adhesive telfa removed; contact dermatitis present. Incision is healing well, without sign of infection or dehiscence. No interval of worsening of superficial skin breakdown/epidermolysis. No seroma or hematoma appreciated. IMPRESSION: Doing well; POD #14. PLAN: Flap was cleansed with alcohol pad. Bacitracin and abd pad placed inside camisole. Pt was advised to avoid adhesive use; a light compression surgical bra was recommended. No indication to continue antibiotics; Continue OTC pain medication as needed. Driving only short distances (1-3 miles) okay as long as use of narcotic and benzodiazepine medications has ceased. Limitations on UE weight bearing to continue. Pt was advised to be mindful of any skin changes or constitutional symptoms. Follow up in 2 weeks time. TANK Dawn 07/21/2017 13:06 documented in this encounter Plan of Treatment Upcoming Encounters Date Type Department Care Team (Late st Contact Info) Description 04/02/2024 10:30 EDT Appointment [facility] Interventional Radiology Unit [address] [place] [phone] 04/02/2024 15:15 EDT Office Visit [facility] Surgical Oncology - [place] [address] [place] [address] [phone] Adolfo Carreno MD [address] [place] [address], [facility] 2 [place] [phone] 04/05/2024 9:30 EDT Telemedicine [facility] Palliative Care Services [address] [place] [address] [phone] Chichi Woods MD [address] [place] [phone] 04/11/2024 15:00 EDT Telemedicine [facility] Hematology & Oncology - [address] [phone] Alisson Carreon MD [address] [place] [address] 2 [place] [phone] 04/13/2024 13:30 EDT Appointment [facility] Hematology & Oncology - [address] [phone] 04/13/2024 14:00 EDT Appointment [facility] Hematology & Oncology - [address] [phone] 04/16/2024 10:00 EST Telemedicine [facility] Palliative Care Services [address] [place] [phone] Chichi Woods MD [address] [place] [phone] 04/24/2024 9:00 EST Appointment [facility] Radiology CT Outpatient - [address] [phone] 04/24/2024 11:00 EST Appointment [facility] Breast Imaging - [address] [address] 04/27/2024 12:00 EST Appointment [facility] Hematology & Oncology [address] [phone] 05/02/2024 15:00 EST Telemedicine [facility] Hematology & Oncology [address] [phone] Alisson Carreon MD [address] [place] [address], Level [address] [place] [phone] 05/04/2024 10:15 EST Ancillary Procedure [facility] Cardiology [place] [place] [address] 05/04/2024 11:30 EST Appointment [facility] Hematology & Oncology [address] [phone] 05/04/2024 12:00 EST Appointment [facility] Hematology & Oncology [address] [phone] 06/12/2024 13:00 EST Appointment [facility] Radiology CT - [address] [phone] documented as of this encounter Visit Diagnoses Diagnosis Surgical follow-up care- Primary Follow-up examination, following unspecified surgery documented in this encounter Care Teams Director Of Casework Services Relationship Specialty Start Date End Date Linda Blancas MD [facility] [address] [place] [address] PCP - General 01/06/11 documented as of this encounter
--- OUTSIDE RECORDS SUMMARY | 2024-03-20 15:06 | XMS_ITS | Encounter Summary ---
Author Organization [facility] Address [address] [place] [address] Care Team Providers Care Judicial Registrar Name Role Phone Linda Blancas MD Primary Care Provider [phone] Reason for Referral * Radiology Services (Routine) - New Request Specialty Diagnoses / Procedures Referred By Contac t Referred To Contact Diagnoses Metastatic breast cancer Malignant neoplasm metastatic to lung, unspecified laterality (HCC-CMS) Procedures CT CHEST W CONTRAST Nadeen Blood PA-C [address] [facility] [address] [place] [address] Referral ID Status Reason Start Date Expiration Date V isits Requested Visits Authorized [id number] New Request 09/07/2017 1 1 * Consult (Routine) - New Request Specialty Diagnoses / Procedures Referred By Contac t Referred To Contact Hematology and Oncology Diagnoses Metastatic breast cancer Augustina Colin MD PhD [facility] Ep2 Hem/Onc [address] [place] [address] Referral ID Status Reason Start Date Expiration Date Visits Requested Visits Authorized [id number] New Request Specialty Services Required 08/17/2017 1 1 Question Answer Advanced care planning: Yes Goals of Care: Yes End of Life: Yes Reason for Visit * Reason Comments Follow-up Encounter Details Date Type Department Care Team (Late st Contact Info) Description 08/17/2017 10:00 EST Office Visit [facility] Cancer Center Hematology & Oncology - Main [address] [address] Augustina Colin MD PhD Metastatic breast cancer ([facility]-HCC) ([facility]) (Primary Dx); Malignant neoplasm metastatic to lung, unspecified laterality (CMS-HCC) (HCC-CMS) Social History Tobacco Use Types Packs/Day [...] Sign Reading Time Taken Comments Blood Pressure 131/61 08/17/2017 1020 EST Pulse 104 08/17/2017 1020 EST Temperature 36.8 ??C (98.2 ??F) 08/17/2017 1020 EST Respiratory Rate 15 08/17/2017 1020 EST Oxygen Saturation 100% 08/17/2017 1020 EST Inhaled Oxygen Concentration - - Weight 68.3 kg (150 lb 9.6 oz) 08/17/[address] Height - - Body Mass Index 27.77 07/07/2017 1400 EST documented in this encounter [...] this encounter Progress Notes * Nadeen Blood PA - 08/17/2017 1000 EST Sunshine Pleitez is a 57 y.o.yo female presenting in clinic today for assessment prior to ongoing letrozole and palbociclib therapy, given for metastatic breast cancer Chief Complaint Patient presents with ??? Follow-up PROBLEM LIST: 1. 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 a. ??Ultrasound performed in [place]??identifying an irregular heterogeneous soft tissue mass measuring 1.2 x 1.2 x 1.5 cm. ?? b.?Two punch biopsies near the site of the skin changes the right??breast perfomed by Dr Carreno??10/21/2016; ??Pathology identified an invasive ductal type carcinoma involving the epidermis and dermis of the skin, nuclear grade 2, which was ER positive 80%, NM positive 20%. ??HER-2 1+ by IHC. ??ANNE [...] bone scan were without evidence of malignancy. Restaging in Mar 2017 showed resolution of mediastinal nodes and stable or diminished pulmonary mets. d. ??Biopsy of mediastinal lymph node consistent with adenocarcinoma,??breast origin e. ??Letrozole initiated October 2016 and palbociclib initiated November 2016. Palbociclib with dose reduction due to mouth sores. ?? f. 07/07/17 underwent excision of right breast tumor/revision and placement of tissue sharemilker. 1.9 cm tumor at time of surgery, well differentiated, with LVI present, and negative margins. 2. ??DCIS in 2004 at the age [...] undetermined significance in NMN, otherwise negative. ?? 4. ??Gynecologic history: postmenopausal, having had premature ovarian failure at age 38. ??She is . ??She has a paternal aunt who had breast cancer in her 30s. ??Hormone replacement therapy forabout 5 years after the premature ovarian failure and discontinued it at the time of DCIS??diagnosis. 5. ??Bone Density - 12/13/16 normal bone density of spine and near osteopenia hips 6. ??Other chronic health issues: ??gastroesophageal reflux disease. HISTORY OF PRESENT ILLNESS: Sunshine returns for assessment prior to ongoing therapy. Since she waslast seen, she went ahead with excision of her right breast tumor and ultimately sharemilker placementin preparation for an implant. This was to improve cosmesis and Sunshine is quite happy with the result. Her notes that the margins were apparently clear and feels this has presumably reducedSunshine's tumor burden significantly. We discussed this at some length and Sunshine does understand that there is mixed information about the efficacy of resecting a primary breast tumor in the setting of metastatic disease. She knows she has seen some resolution of lymph nodes in her chest as well as stability to improvement of lung nodules that are presumably breast cancer. 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 When we bring up the concept of thinking aboutpalliative care and being prepared for eventual disease progression, she is quite interested in such a consult. REVIEW OF SYSTEMS: Symptom report form was completed and reviewed with the patient. Symptoms as discussed above. At a higher dose of palbociclib, she was having significant recession of gums and mouth sores. These have now essentially resolved. She remarks that she has noticed a few more hot flashes since on palbociclib. She notes a mild chronic cough, no fever or chills or dyspnea. Grade 1 fatigue. Grade 1 insomnia for which she will take Unisom or Ambien, I believe most nights. Mild headaches, not increasing in frequency or severity. Remainder of system review is negative. Past Medical History: Diagnosis Date ??? Allergy ??? Arthritis ??? Back pain ??? Breast cancer ([facility]) November 2003 DCIS - right breast ??? Environmental allergies ??? Hearing loss ??? Numbness ??? Wears glasses Patient Active Problem List Diagnosis Date Noted ??? Malignant neoplasm of female breast ([facility]-H[facility]) 07/07/2017 Priority: Medium ??? Metastatic breast cancer ([facility]) 11/18/2016 Priority: Medium ??? Breast lump 10/21/2016 Priority: Medium ??? Trigger thumb of left hand 05/21/2013 Priority: Medium ??? Personal history of malignant neoplasm of breast 02/25/2012 Priority: Medium ??? Plantar fat pad atrophy 02/14/2014 ??? Plantar fasciitis of left foot 03/14/2013 ??? Unstable right ankle 03/14/2013 ??? Hallux rigidus of right foot 03/14/2013 ??? Acquired absence of breast and nipple 09/16/2011 ??? Lumbar radicular syndrome 01/18/2011 ??? Acquired spondylolisthesis 01/18/2011 ??? Lumbosacral spondylosis without myelopathy 01/18/2011 ??? Menopausal and postmenopausal disorder 09/26/2009 ??? Encounter for routine gynecological examination 09/26/2009 ??? Premature ovarian failure 09/12/2009 ??? Herpes simplex type 2 infection 09/12/2009 ??? Papanicolaou smear of cervix with low grade squamous intraepithelial lesion (LGSIL) 03/11/2009 Past Surgical History: Procedure Laterality Date ??? [...] ??? Breast Cancer Paternal Aunt 35 Social History Social History ??? Marital status: Spouse name: N/A ??? Number of children: N/A ??? Years of education: N/A Social History Main Topics ??? Smoking status: Never Smoker ??? Smokeless tobacco: Never Used ??? Alcohol use 0.6 - 1.8 oz/week 1 - 3 Glasses of wine per week ??? Drug use: No ??? Sexual activity: Yes Partners: Male Other Topics Concern ??? None Social History Narrative: Travels here from [facility]. Here with her . Medications Prior to Today's Visit Medication Sig ??? calcium-vitamin D (OS-CHAR D) 500 mg(1,250mg) -200 unit per tablet Take 1 Tab by mouth 2 times daily with breakfast and dinner. ??? DOXYLAMINE SUCCINATE (UNISOM ORAL) Take by mouth as needed. Takes half a tablet ??? gabapentin (NEURONTIN) 100 mg capsule Take 2 Caps by mouth 2 times daily. ??? ibuprofen (MOTRIN) 200 mg tablet Take 200-400 mg by mouth as needed. ??? letrozole (FEMARA) 2.5 mg tablet TAKE 1 TABLET DAILY ??? MULTIVITS W-CA,FE,OTHER MIN (WOMEN'S DAILY FORMULA ORAL) Take by mouth daily. ??? omeprazole (PRILOSEC) 20 mg capsule Take 20 mg by mouth daily. ??? palbociclib (IBRANCE) 125 mg capsule Take 100 mg by mouth daily. For 21 days on then 7 days off ??? RED YEAST RICE EXTRACT ORAL Take [...] 11/01/2016 No facility-administered medications prior to visit. Allergies Allergen Reactions ??? Amoxicillin Other (See Comments) and Rash Red rash ??? Sulfa (Sulfonamide Antibiotics) Hives Light lavender rash Objective: BP 131/61 (BP Cuff Location: Left arm, Patient Position: Sitting, BP Cuff Sizes: Adult, regular) Pulse 104 Temp 36.8 ??C (98.2 ??F) (Tympanic) Resp 15 Wt 68.3 kg (150 lb 9.6 oz) SpO2 100% BMI 27.77 kg/m2 Body mass index is 27.77 kg/(m^2). General appearance: alert, no distress Head: Normocephalic, without obvious abnormality, atraumatic Throat/Mouth: normal findings: oropharynx pink & moist without lesions or evidence of thrush. No further gum lesions/gum recession. Neck: supple, symmetrical, trachea midline and no adenopathy Lymph nodes: Cervical, supraclavicular nodes normal. Lungs: clear to auscultation bilaterally Heart: regular rate and rhythm, No significant murmur Breasts: briefly examined, well healed surgical scars, improved symmetry/cosmesis. Abdomen: normal findings: no masses palpable, no organomegaly, soft, non-tender Neurologic: Grossly normal Mental Status: mood and affect appropriate, speech and thought process intact Extremities: extremities warm, atraumatic, no cyanosis or edema Skin: Skin color, temperature, turgor normal. No rashes or lesions LABORATORY: Labs from [facility] were reviewed. WBC 3.4, with an ANC of 1.61, hemoglobin 11.8, platelets 188. Complete metabolic panel entirely within normal limits aside from elevated glucose of 151. ASSESSMENT: Metastatic breast cancer, with diagnosis and therapy thus far, well documented above. The patient currently is on letrozole plus palbociclib, approaching a year of this therapy. She has required dose reduction and hold on palbociclib, due to mouth issues and gum recession, but this is now resolved. She opted to go ahead with surgical excision of tumor and also sharemilker placement to improve cosmesis and symmetry and she is quite happy with this outcome. She did hold palbociclib during this surgery, but is back on therapy. Last imaging from March 2017 showed resolution of mediastinal lymphadenopathy and overall some diminishment of pulmonary nodules. Sunshine's performance level is good and she is fit to continue treatment. The patient was seen and discussed with Dr Augustina Colin. PLAN: 1. Continue palbociclib at current dose, 100 mg on a 3 weeks on, 1 week off schedule. 2. Continue daily letrozole. 3. CA 27-29 tumor marker can be checked at time of restaging. 4. Sunshine is pleased with how she is doing but understands that at some point she will see progression of her cancer. 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 5. As of next month, the patient will be about 6 months from her last chest CT and we will go aheadand plan restaging CT just prior to the patient's return visit with Dr Colin, in about 4 weeks. 6. Follow up as above, sooner with acute concerns or questions. I was directly supervised by Dr Augustina Colin, who was in the suite and immediately available for the entire time the above documented service was provided. TANK Quintero 09/07/2017 8:50 documented in this encounter Plan of Treatment Upcoming Encounters Date Type Department Care Team (Late st Contact Info) Description 04/02/2024 10:30 EDT Appointment [facility] [address] [place] [phone] 04/02/2024 15:15 EDT Office Visit [facility] - [address] [phone] Adolfo Carreno MD [address] [place] [address] [address] [place] [phone] 04/05/2024 9:30 EDT Telemedicine [facility] [address] [place] [address] [phone] Chichi Woods MD [address] [place] [address], [address] [phone] 04/11/2024 15:00 EDT Telemedicine [facility] Hematology & Oncology [address] [phone] Alisson Carreon MD [address] [place] [address] [address] [place] [phone] 04/13/2024 13:30 EDT Appointment [facility] Hematology & Oncology [address] [id number] 04/13/2024 14:00 EDT Appointment [facility] Hematology & Oncology - [address] [id number] 04/16/2024 10:00 EST Telemedicine [facility] [address] [place] [phone] Chichi Woods MD 111 [facility], [address] [phone] 04/24/2024 9:00 EST Appointment [facility] Radiology CT Outpatient - [address] [id number] 04/24/2024 11:00 EST Appointment [facility] - [facility] [address] [place], [place] [phone] 04/27/2024 12:00 EST Appointment [facility] Hematology & Oncology - [address] [id number] 05/02/2024 15:00 EST Telemedicine [facility] Hematology & Oncology - [address] [phone] Alisson Carreon MD [address] [place] [address], [facility], Level [address] [place] [phone] 05/04/2024 10:15 EST Ancillary Procedure [facility] [place] [address] 05/04/2024 11:30 EST Appointment [facility] Hematology & Oncology - [address] [phone] 05/04/2024 12:00 EST Appointment [facility] Hematology & Oncology - [address] [id number] 06/12/2024 13:00 EST Appointment [facility] Radiology CT - [address] [phone] Scheduled Referrals Name Type Priority Associated Diagnoses Order Schedule AMB PALLIATIVE CARE SERVICES Outpatient Referral Routine Metastatic breast cancer (CMS-HCC) (HCC-CMS) Ordered: 08/17/2017 documented as of this encounter Procedures Procedure Name Priority Date/Time Associated Diagnosis Comments CT CHEST W CONTRAST Routine 10/12/2017 1 0:09 EDT Metastatic breast cancer (HCC-CMS) Malignant neoplasm metastatic to lung, unspecified laterality (HCC-CMS) documented in this encounter Results * CT CHEST W CONTRAST (10/12/2017 10:09 EDT) Anatomical Region Laterality Modality Other 10/12/2017 10:0 9 EDT 10/12/2017 15:22 EDT Narrative 10/12/2017 15:[address] CHEST W CONTRAST ??10/12/2017 10:09 AM Signs and Symptoms/Comments: ?? C50.919-Malignant neoplasm of unspecified site of unspecified female breast (CMS-HCC)-ICD-10 C78.00-Secondary malignant neoplasm of unspecified lung (CMS-HCC)-ICD-10; breast CA, lung and mediastinal mets, eval disease status. Technique: A single breath-hold helical CT acquisition [...] a dedicated PACS workstation for analysis. Comparison: Multiple prior chest CTs, the most recent from 03/25/2017 Findings: Lower neck: No abnormality. Chest wall: ??There is a left subpectoral saline implant and a right subpectoral saline sharemilker. There has been interval resection of a previously noted right lateral superficial breast lesion. Mediastinum and amriann: There are no enlarged or enlarging mediastinal or hilar lymph nodes. Heart and mediastinal vasculature: The cardiac chambers are normal in size as are the great vessels. There is no pericardial disease. There is minimal atherosclerotic ossification of the coronary arteries. Large airways: No abnormalities. Lungs: Multiple pulmonary nodules are redemonstrated. The superior segment right lower lobe nodule now measures 2 mm (axial 212, series 402). A nodule in the anterobasal segment has also decreased in size. The majority of the nodules are stable in size and no new nodules are identified. Pleura: No pleural effusion or pneumothorax is present. Upper abdomen: No abnormality. Bones: There are subacute healing right-sided anterior fourth fifth and sixth rib fractures. Impression: 1. Interval resection of previously noted right lateral breast lesion. 2. Stable to slight decrease in size of multiple bilateral pulmonary nodules. Although these are likely metastatic in nature, a component of an inflammatory process is possible. No evidence of mediastinal/hilar adenopathy. 3. Right subpectoral tissue sharemilker and left subpectoral saline implant. 4. Subacute healing right-sided anterior fourth, fifth and sixth rib fractures. 5. Coronary atherosclerosis. I have personally reviewed the images and the above interpretation and agree with the findings. Procedure Note Don Prakash MD - 10/12/2017 CT CHEST W CONTRAST 10/12/2017 10:09 AM Signs and Symptoms/Comments: C50.919-Malignant neoplasm of unspecified site of unspecified female breast (CMS-HCC)-ICD-10 C78.00-Secondary malignant neoplasm of unspecified lung (CMS-HCC)-ICD-10; breast CA, lung and mediastinal mets, eval disease status. Technique: A single breath-hold helical CT acquisition [...] a dedicated PACS workstation for analysis. Comparison: Multiple prior chest CTs, the most recent from 03/25/2017 Findings: Lower neck: No abnormality. Chest wall: There is a left subpectoral saline implant and a right subpectoral saline sharemilker. There has been interval resection of a previously noted right lateral superficial breast lesion. Mediastinum and mariann: There are no enlarged or enlarging mediastinal or hilar lymph nodes. Heart and mediastinal vasculature: The cardiac chambers are normal in size as are the great vessels. There is no pericardial disease. There is minimal atherosclerotic ossification of the coronary arteries. Large airways: No abnormalities. Lungs: Multiple pulmonary nodules are redemonstrated. The superior segment right lower lobe nodule now measures 2 mm (axial 212, series 402). A nodule in the anterobasal segment has also decreased in size. The majority of the nodules are stable in size and no new nodules are identified. Pleura: No pleural effusion or pneumothorax is present. Upper abdomen: No abnormality. Bones: There are subacute healing right-sided anterior fourth fifth and sixth rib fractures. Impression: 1. Interval resection of previously noted right lateral breast lesion. 2. Stable to slight decrease in size of multiple bilateral pulmonary nodules. Although these are likely metastatic in nature, a component of an inflammatory process is possible. No evidence of mediastinal/hilar adenopathy. 3. Right subpectoral tissue sharemilker and left subpectoral saline implant. 4. Subacute healing right-sided anterior fourth, fifth and sixth rib fractures. 5. Coronary atherosclerosis. I have personally reviewed the images and the above interpretation and agree with the findings. Nadeen Blood PA-C IMG CT ORDERABLES documented in this encounter Visit Diagnoses Diagnosis Metastatic breast cancer- Primary Malignant neoplasm metastatic to lung, unspecified laterality (HCC-CMS) documented in this encounter Care Teams Judicial Registrar Relationship Specialty Start Date End Date Linda Blancas MD [address] [place] [address] PCP - General 01/06/11 documented as of this encounter
--- OUTSIDE RECORDS SUMMARY | 2024-03-20 15:06 | XMS_ITS | Encounter Summary ---
Author Organization [facility] Address [address] [place] [address] Care Team Providers Care Lock And Dam Operator Name Role Phone Linda Blancas MD Primary Care Provider [phone] Reason for Visit * Reason Onset Date Comments Medication Questions 09/26/2017 Encounter Details Date Type Department Care Team (Late st Contact Info) Description 09/26/2017 Telephone [facility] Cancer Center Hematology & Oncology - [facility] [address] [place] [address] Vanessa Rollins, DELINQUENCY PREVENTION SOCIAL WORKER [address] [facility], Level [address] [place] [phone] Medication Questions Social History Tobacco Use Types Packs/Day Years [...] Telephone Encounter - Quita Rob RN - 09/26/2017 1458 EDT Called Ms Pleitez who reports she developed a garden variety cold. Pt states she has nasal and chest congestion. Ms Pleitez denies any fevers. Pt states she has been chilled but believes that is due to the weather. Ms Worrell advised to continue to stay well hydrated and treat her symptoms. Pt notified she should contact the clinic with any infectious symptoms or fevers. Pt verbalized understanding and will monitor symptoms. * Telephone Encounter - Sharda Johnson - 09/26/2017 1340 EDT Reason for Call: Medication Questions Summary/Symptoms: Patient currently taking Ibrance and Letrozole and has developed a cold over the weekend and concerned that she may need to start antibiotics, Please call Sharda Johnson 09/26/2017 13:40 documented in this encounter Plan of Treatment Upcoming Encounters Date Type Department Care Team (Late st Contact Info) Description 04/02/2024 10:30 EDT Appointment [facility] Interventional Radiology Unit [address] [place] [phone] 04/02/2024 15:15 EDT Office Visit [facility] Surgical Oncology - [facility] [address] [place], [place] [phone] Adolfo Carreno MD 111 [facility], Level [address] [place] [phone] 04/05/2024 9:30 EDT Telemedicine [facility] Palliative Care Services [address] [place] [address] [id number] Chichi Woods MD [address] [place] [phone] 04/11/2024 15:00 EDT Telemedicine [facility] Hematology & Oncology - [address] [address] Alisson Carreon MD [address] [place] [address], [address] [place] [phone] 04/13/2024 13:30 EDT Appointment [facility] Hematology & Oncology [address] [address] 04/13/2024 14:00 EDT Appointment [facility] Hematology & Oncology [address] [address] 04/16/2024 10:00 EST Telemedicine [facility] Palliative Care Services [address] [place] [address] [id number] Chichi Woods MD [address] [place] [phone] 04/24/2024 9:00 EST Appointment [facility] Radiology CT Outpatient - [address] [phone] 04/24/2024 11:00 EST Appointment [facility] Breast Imaging - [address] [phone] 04/27/2024 12:00 EST Appointment [facility] Hematology & Oncology [address] [phone] 05/02/2024 15:00 EST Telemedicine [facility] Hematology & Oncology [address] [phone] Alisson Carreon MD [address] [facility], Level [address] [place] [phone] 05/04/2024 10:15 EST Ancillary Procedure [facility] Cardiology - [address] [place] [address] 05/04/2024 11:30 EST Appointment [facility] Hematology & Oncology [address] [phone] 05/04/2024 12:00 EST Appointment [facility] Hematology & Oncology [address] [phone] 06/12/2024 13:00 EST Appointment [facility] Radiology CT - [address] [phone] documented as of this encounter Visit Diagnoses Not on filedocumented in this encounter Care Teams Lock And Dam Operator Relationship Specialty Start Date End Date Linda Blancas MD [address] [place] [address] [address] [place] [address] PCP - General 01/06/11 documented as of this encounter
--- OUTSIDE RECORDS SUMMARY | 2024-03-20 15:07 | XMS_ITS | Encounter Summary ---
Author Organization [facility] Address [address] [place] [address] Care Team Providers Care Wire Coating Machine Operator Name Role Phone Linda Blancas MD Primary Care Provider [phone] Reason for Visit * Reason Onset Date Comments Results 03/23/2017 Encounter Details Date Type Department Care Team (Late st Contact Info) Description 03/23/2017 Telephone [facility] Cancer Center Hematology & Oncology - [facility] [address] [place] [address] Augustina Colin MD PhD Results Social History Tobacco Use [...] visiting a doctor's office or shopping? No 01/13/2017 Cognitive Status Response Date of Assessm ent Because of a physical, menta l, or emotional condition, does this person have serious difficulty concentrating, remembering, or making decisions? No 01/13/2017 documented as of this encounter Miscellaneous Notes * Telephone Encounter - Bess Orellana - 03/23/2017 1243 EDT Lab results from [facility] Lab from 03/07/2017 entered. documented in this encounter Plan of Treatment Upcoming Encounters Date Type Department Care Team (Late st Contact Info) Description 04/02/2024 10:30 EDT Appointment [facility] Interventional Radiology Unit [address] [place] [address] [phone] 04/02/2024 15:15 EDT Office Visit [facility] Surgical Oncology - [address] [phone] Adolfo Carreno MD [address] [place] [address] 2 [place] [phone] 04/05/2024 9:30 EDT Telemedicine [facility] Palliative Care Services [address] [place] [address] [phone] Chichi Woods MD [address] [place] [address] [phone] 04/11/2024 15:00 EDT Telemedicine [facility] Hematology & Oncology [address] [phone] Alisson Carreon MD [address] [place] [address] [phone] 04/13/2024 13:30 EDT Appointment [facility] Hematology & Oncology [address] [phone] 04/13/2024 14:00 EDT Appointment [facility] Hematology & Oncology [address] [phone] 04/16/2024 10:00 EST Telemedicine [facility] Palliative Care Services [address] [place] [address] [phone] Chichi Woods MD [address] [place] [address], [address] [phone] 04/24/2024 9:00 EST Appointment [facility] Radiology CT Outpatient - [address] [phone] 04/24/2024 11:00 EST Appointment [facility] Breast Imaging - [facility] [address] [place], [place] 956251 04/27/2024 12:00 EST Appointment [facility] Hematology & Oncology [address] [phone] 05/02/2024 15:00 EST Telemedicine [facility] Hematology & Oncology [address] [phone] Alisson Carreon MD [address] [place] [address], [facility] Level 2 [place] [phone] 05/04/2024 10:15 EST Ancillary Procedure [facility] Cardiology - [address] [place] [address] 05/04/2024 11:30 EST Appointment [facility] Hematology & Oncology - [address] [phone] 05/04/2024 12:00 EST Appointment [facility] Hematology & Oncology - [address] [phone] 06/12/2024 13:00 EST Appointment [facility] Radiology CT - [address] [phone] documented as of this encounter Procedures Procedure Name Priority Date/Time Associated Diagnosis Comments COMPLETE BLOOD COUNT AND DIFFERENTIAL Routine 03/07/2017 COMPREHENSIVE METABOLIC PANEL (CMP) Routine 03/07/2017 documented in this encounter Results * (ABNORMAL) HEMAGRAM AND DIFFERENTIAL (03/07/2017) WBC, External 3.3(A) 4.5 - 11.0 [facility] RBC, External 3.06(A) 4.00 - 5.20 [facility] Hemoglobin, External 11.8(A) 12.0 - 15.0 [facility] HCT, External 33.7(A) 36.0 - 46.0 [facility] MCV, External 110(A) 80 - 100 [facility] MCH, External 38.6(A) 26.0 - 34.0 [facility] MCHC, External 35.0 31.0 - 37.0 [facility] PLT, External 207 150 - 350 [facility] RDW-CV, External 14.8(A) 11.5 - 14.5 [facility] Neutrophils, External 41 31 - 76 [facility] Lymphocytes, External 33 24 - 44 [facility] Monocytes, External 4 2 - 11 [facility] Eosinophils, External 1 1 - 4 [facility] Basophils, External 2 0 - 2 [facility] ABS Neutrophils, External 1.4(A) 1.5 - 7.8 [facility] ABS Lymphs, External 1.7 1.1 - 4.8 [facility] ABS Monocytes, External 0.1 [facility] ABS Eosinophils, External 0.0 [facility] ABS Basophils, External 0.1 [facility] Blood specimen (specimen) 03/07/2017 Historical Provider PACKAGES & DNA [place] OBE ORDERABLES [facility] * COMPREHENSIVE METABOLIC PANEL (CMP) (03/07/2017) GFR, Calculated, External >60 [facility] Glucose, Serum, External 91 74 - 106 [facility] Albumin, External 3.8 3.4 - 5.0 [facility] Total Alkaline Phosphatase, External 75 48 - 129 [facility] ALT, External 20 13 - 61 [facility] AST, External 18 15 - 37 [facility] BUN, External 18 7 - 18 [facility] Calculated Calcium, External [facility] Calcium, External 8.9 8.5 - 10.1 [facility] Chloride, External 106 98 - 107 [facility] CO2, External 29 21 - 32 [facility] Creatinine, External 0.8 0.6 - 1.3 [facility] Fasting?, External [facility] Potassium, External 4.3 3.5 - 5.1 [facility] Sodium, External 142 136 - 145 [facility] Total Protein, External 7.2 6.4 - 8.2 [facility] Bilirubin, Total, External 0.57 0.20 - 1.00 [facility] Blood specimen (specimen) 03/07/2017 Historical Provider CHEMISTRY & BLOOD GAS ORDERABLES [facility] documented in this encounter Visit Diagnoses Not on filedocumented in this encounter Care Teams Wire Coating Machine Operator Relationship Specialty Start Date End Date Linda Blancas MD [facility] [address] [place] [address] PCP - General 01/06/11 documented as of this encounter
--- OUTSIDE RECORDS SUMMARY | 2024-03-20 15:07 | XMS_ITS | Encounter Summary ---
Author Organization [facility] Address [address] [place] [address] Care Team Providers Care Laborer Heading Name Role Phone Linda Blancas MD Primary Care Provider [phone] Reason for Visit * Reason Onset Date Comments Results 03/22/2017 Encounter Details Date Type Department Care Team (Late st Contact Info) Description 03/22/2017 Telephone [facility] Cancer Center Hematology & Oncology - [facility] [address] [place] [address] Augustina Colin MD PhD Results Social History [...] * Telephone Encounter - Bess Orellana - 03/22/2017 1552 EDT Lab results from [facility] lab from 01/24/2017 entered. documented in this encounter Plan of Treatment Upcoming Encounters Date Type Department Care Team (Late st Contact Info) Description 04/02/2024 10:30 EDT Appointment [facility] Interventional Radiology Unit [address] [place] [address] [phone] 04/02/2024 15:15 EDT Office Visit [facility] Surgical Oncology - [address] [phone] Adolfo Carreno MD [address] [place] [address] 2 [place] [phone] 04/05/2024 9:30 EDT Telemedicine [facility] Palliative Care Services [address] [place] [address] [phone] Chichi Woods MD [address] [place] [address] [phone] 04/11/2024 15:00 EDT Telemedicine [facility] Hematology & Oncology [address] [phone] Alisson Carreon MD [address] [place] [address] [phone] 04/13/2024 13:30 EDT Appointment [facility] Hematology & Oncology [address] [phone] 04/13/2024 14:00 EDT Appointment [facility] Hematology & Oncology [address] [phone] 04/16/2024 10:00 EST Telemedicine [facility] Palliative Care Services [address] [place] [address] [phone] Chichi Woods MD [address] [place] [address], [address] [phone] 04/24/2024 9:00 EST Appointment [facility] Radiology CT Outpatient - [address] [id number] 04/24/2024 11:00 EST Appointment [facility] Breast Imaging - [facility] [address] [employer] [place], [place] 548831 04/27/2024 12:00 EST Appointment [facility] Hematology & Oncology - [address] [phone] 05/02/2024 15:00 EST Telemedicine [facility] Hematology & Oncology [address] [phone] Alisson Carreon MD [address] [place] [address], [facility] Level [address] [place] [phone] 05/04/2024 10:15 EST Ancillary Procedure [facility] Cardiology - [address] [place] [address] 05/04/2024 11:30 EST Appointment [facility] Hematology & Oncology [address] [id number] 05/04/2024 12:00 EST Appointment [facility] Hematology & Oncology - [address] [phone] 06/12/2024 13:00 EST Appointment [facility] Radiology CT - [address] [phone] documented as of this encounter Procedures Procedure Name Priority Date/Time Associated Diagnosis Comments TSH Routine 01/24/2017 LIPID PROFILE (INCLUDES CHOLESTEROL, TRIGLYCERIDES, HDL, LDL) Routine 01/24/2017 documented in this encounter Results * LIPID PROFILE (INCLUDES CHOLESTEROL, TRIGLYCERIDES, HDL, LDL) (01/24/2017) Cholesterol, External 208 [facility] Triglycerides, External 164 [facility] HDL, External 54 [facility] LDL, External 121 [facility] Chol/HDL Ratio, External [facility] Fasting?, External [facility] Blood specimen (specimen) 01/24/2017 Historical Provider CHEMISTRY & BLOOD GAS ORDERABLES [facility] * TSH (01/24/2017) TSH, External 2.390 0.360 - 3.740 [facility] Blood specimen (specimen) 01/24/2017 Historical Provider CHEMISTRY & BLOOD GAS ORDERABLES [facility] documented in this encounter Visit Diagnoses Not on filedocumented in this encounter Care Teams Laborer Heading Relationship Specialty Start Date End Date Linda Blancas MD [address] [place] [address] 30 [place] [address] PCP - General 01/06/11 documented as of this encounter
--- OUTSIDE RECORDS SUMMARY | 2024-03-20 15:07 | XMS_ITS | Encounter Summary ---
Author Organization [facility] Address [address] [place] [address] Care Team Providers Care Management Architect Name Role Phone Linda Blancas MD Primary Care Provider [phone] Encounter Details Date Type Department Care Team (Late st Contact Info) Description 03/25/2017 9:39 EDT - 03/25/2017 23:59 EDT Hospital Encounter [address] [address] Augustina Colin MD PhD Adolfo Carreno MD [address] [place] [address], Level [address] [place] [phone] Discharge Disposition: Auto Discharge Social History Tobacco [...] No 01/13/2017 documented as of this encounter Discharge Diagnoses Diagnosis C50.919 Malignant neoplasm of unspecified site of unspecified female breast-C50.919[ICD-10-CM] R91.8 Other nonspecific abnormal finding of lung field-R91.8[ICD-10-CM] documented in this encounter Medications at Time [...] 360 Cap 3 08/16/2012 12/14/2023 gabapentin (NEURONTIN) 300 mg capsule Take 2 Caps by mouth at bedtime. 180 Cap 3 08/16/2012 06/16/2017 ibuprofen (MOTRIN) 200 mg tablet Take 200-400 mg by mouth as needed. 08/30/2018 letrozole (FEMARA) 2.5 mg tabletIndications:Perso nal history of malignant neoplasm of breast,Breast lump TAKE 1 TABLET DAILY 90 Tab 3 01/20/2017 01/15/2018 lidocaine (LIDOCAINE) 2 % solutionIndications:Met astatic breast cancer,Mouth sores 5 mL by mucous membrane route as needed for Pain. Apply to mouth sores as needed. 100 mL 1 01/13/2017 06/16/2017 omeprazole (PRILOSEC) 20 mg capsule Take 1 Capsule by mouth daily. 03/28/2023 palbociclib (IBRANCE) 125 mg capsuleIndications:[place] static breast cancer Take 100 mg by [...] Appointment [facility] Interventional Radiology Unit [address] [place] [address] [phone] 04/02/2024 15:15 EDT Office Visit [facility] Surgical Oncology - [address] 112491 Adolfo Carreno MD [address] [place] [address] [phone] 04/05/2024 9:30 EDT Telemedicine [facility] Palliative Care Services [address] [place] [address] 188831 Chichi Woods MD [address] [place] [address] [phone] 04/11/2024 15:00 EDT Telemedicine [facility] Hematology & Oncology [address] [phone] Alisson Carreon MD [address] [place] [address] [phone] 04/13/2024 13:30 EDT Appointment [facility] Hematology & Oncology [address] [id number] 04/13/2024 14:00 EDT Appointment [facility] Hematology & Oncology [address] [id number] 04/16/2024 10:00 EST Telemedicine [facility] - [facility] Palliative Care Services [address] [place] [address] [phone] Chichi Woods MD [address] [place] [address], [address] [place] [phone] 04/24/2024 9:00 EST Appointment [facility] Radiology CT Outpatient - [address] [id number] 04/24/2024 11:00 EST Appointment [facility] Breast Imaging - [facility] [address] [place] [address] [place], [place] 194911 04/27/2024 12:00 EST Appointment [facility] Hematology & Oncology - [address] [phone] 05/02/2024 15:00 EST Telemedicine [facility] Hematology & Oncology - [address] [phone] Alisson Carreon MD [address] [place] [address], Level [address] [place] [phone] 05/04/2024 10:15 EST Ancillary Procedure [facility] Cardiology - [address] [place], [place] [phone] 05/04/2024 11:30 EST Appointment [facility] Hematology & Oncology - [address] [phone] 05/04/2024 12:00 EST Appointment [facility] Hematology & Oncology [address] [phone] 06/12/2024 13:00 EST Appointment [facility] Radiology CT - [address] [phone] documented as of this encounter Visit Diagnoses Not on filedocumented in this encounter Care Teams Management Architect Relationship Specialty Start Date End Date Linda Blancas MD [address] [place] [address] PCP - General 01/06/11 documented as of this encounter
--- OUTSIDE RECORDS SUMMARY | 2024-03-20 15:07 | XMS_ITS | Encounter Summary ---
Author Organization [facility] Address [address] [place] [address] Care Team Providers Care Storage Garage Attendant Name Role Phone Linda Blancas MD Primary Care Provider [phone] Reason for Visit * Reason Onset Date Comments Results 03/23/2017 Encounter Details Date Type Department Care Team (Late st Contact Info) Description 03/23/2017 Telephone [facility] Cancer Center Hematology & Oncology - [facility] [address] [place] [address] Augustina Colin MD PhD Results Social History [...] Telephone Encounter - Bess Orellana - 03/23/2017 4079 EDT Lab results from [facility] Lab from 01/31/2017 entered. documented in this encounter Plan of Treatment Upcoming Encounters Date Type Department Care Team (Late st Contact Info) Description 04/02/2024 10:30 EDT Appointment [facility] Interventional Radiology Unit [address] [place] [address] [phone] 04/02/2024 15:15 EDT Office Visit [facility] Surgical Oncology - [address] [phone] Adolfo Carreno MD [address] [place] [address] 2 [place] [phone] 04/05/2024 9:30 EDT Telemedicine [facility] Palliative Care Services [address] [place] [address] [phone] Chichi Woods MD [address] [place] [address] [phone] 04/11/2024 15:00 EDT Telemedicine [facility] Hematology & Oncology [address] [phone] Alisson Carreon MD [address] [place] [address] [phone] 04/13/2024 13:30 EDT Appointment [facility] Hematology & Oncology [address] [phone] 04/13/2024 14:00 EDT Appointment [facility] Hematology & Oncology [address] [phone] 04/16/2024 10:00 EST Telemedicine [facility] Palliative Care Services [address] [place] [address] [phone] Chichi Woods MD [address] [place] [address], [address] [phone] 04/24/2024 9:00 EST Appointment [facility] Radiology CT Outpatient - [address] [phone] 04/24/2024 11:00 EST Appointment [facility] Breast Imaging - [facility] 1 [place], [place] 824431 04/27/2024 12:00 EST Appointment [facility] Hematology & Oncology [address] [phone] 05/02/2024 15:00 EST Telemedicine [facility] Hematology & Oncology [address] [phone] Alisson Carreon MD [address] [place] [address], [facility] Level 2 [place] [phone] 05/04/2024 10:15 EST Ancillary Procedure [facility] Cardiology - [address] [place] [address] 05/04/2024 11:30 EST Appointment [facility] Hematology & Oncology [address] [phone] 05/04/2024 12:00 EST Appointment [facility] Hematology & Oncology - [address] [phone] 06/12/2024 13:00 EST Appointment [facility] Radiology CT - [address] [phone] documented as of this encounter Procedures Procedure Name Priority Date/Time Associated Diagnosis Comments COMPLETE BLOOD COUNT AND DIFFERENTIAL Routine 01/31/2017 COMPREHENSIVE METABOLIC PANEL (CMP) Routine 01/31/2017 documented in this encounter Results * (ABNORMAL) HEMAGRAM AND DIFFERENTIAL (01/31/2017) WBC, External 4.3(A) 4.5 - 11.0 [facility] RBC, External 3.28(A) 4.00 - 5.20 [facility] Hemoglobin, External 11.9(A) 12.0 - 15.0 [facility] HCT, External 34.4(A) 36.0 - 46.0 [facility] MCV, External 105(A) 80 - 100 [facility] MCH, External 36.3(A) 26.0 - 34.0 [facility] MCHC, External 34.6 31.0 - 37.0 [facility] PLT, External 338 150 - 350 [facility] RDW-CV, External 16.8(A) 11.5 - 14.5 [facility] Neutrophils, External 51.6 31.0 - 76.0 [facility] Lymphocytes, External 39.6 24.0 - 44.0 [facility] Monocytes, External 7.1 2.0 - 11.0 [facility] Eosinophils, External 0.7(A) 1.0 - 4.0 [facility] Basophils, External 0.5 0.0 - 2.0 [facility] ABS Neutrophils, External 2.24 1.50 - 7.80 [facility] ABS Lymphs, External 1.72 1.10 - 4.80 [facility] Monocytes, External 0.31 [facility] ABS Eosinophils, External 0.03 [facility] ABS Basophils, External 0.02 [facility] Blood specimen (specimen) 01/31/2017 Historical Provider MD PACKAGES & DNA [place] OBE ORDERABLES [facility] * (ABNORMAL) COMPREHENSIVE METABOLIC PANEL (CMP) (01/31/2017) GFR, Calculated, External >60 [facility] Glucose, Serum, External 88 74 - 106 [facility] Albumin, External 3.7 3.4 - 5.0 [facility] Total Alkaline Phosphatase, External 84 48 - 129 [facility] ALT, External 23 13 - 61 [facility] AST, External 17 15 - 37 [facility] BUN, External 19(A) 7 - 18 [facility] Calculated Calcium, External [facility] Calcium, External 9.4 8.5 - 10.1 [facility] Chloride, External 107 98 - 107 [facility] CO2, External 29 21 - 32 [facility] Creatinine, External 0.9 0.6 - 1.3 [facility] Fasting?, External [facility] Potassium, External 4.4 3.5 - 5.1 [facility] Sodium, External 143 136 - 145 [facility] Total Protein, External 7.4 6.4 - 8.2 [facility] Bilirubin, Total, External 0.50 0.20 - 1.00 [facility] Blood specimen (specimen) 01/31/2017 Historical Provider CHEMISTRY & BLOOD GAS ORDERABLES [facility] documented in this encounter Visit Diagnoses Not on filedocumented in this encounter Care Teams Storage Garage Attendant Relationship Specialty Start Date End Date Linda Blancas MD [address] [place] [address] PCP - General 01/06/11 documented as of this encounter
--- OUTSIDE RECORDS SUMMARY | 2024-03-20 15:07 | XMS_ITS | Encounter Summary ---
Author Organization [facility] Address [address] [place] [address] Care Team Providers Care Material Planner Name Role Phone Linda Blancas MD Primary Care Provider [phone] Reason for Visit * Reason Onset Date Comments Pre-visit Orders 03/03/2017 Encounter Details Date Type Department Care Team (Late st Contact Info) Description 03/03/2017 Orders Only [facility] Cancer Center Hematology & Oncology - [facility] [address] [place] [address] Quita Rob RN Metastatic breast cancer (CMS-HCC) (HCC-CMS) (Primary Dx) [...] No 01/13/2017 documented as of this encounter Progress Notes * Quita Rob RN - 03/03/2017 1345 EDT Order placed for ultrasound of the breast to be done prior to pt's March appt. Pt made aware. documented in this encounter Plan of Treatment Upcoming Encounters Date Type Department Care Team (Late st Contact Info) Description 04/02/2024 10:30 EDT Appointment [facility] Interventional Radiology Unit [address] [place] [address] [phone] 04/02/2024 15:15 EDT Office Visit [facility] Surgical Oncology - [address] [phone] Adolfo Carreno MD [address] [place] [address] [phone] 04/05/2024 9:30 EDT Telemedicine [facility] - [facility] Palliative Care Services [address] [place] [address] [phone] Chichi Woods MD [address] [place] [address] [phone] 04/11/2024 15:00 EDT Telemedicine [facility] Hematology & Oncology [address] [phone] Alisson Carreon MD [address] [place] [address] [phone] 04/13/2024 13:30 EDT Appointment [facility] Hematology & Oncology [address] [phone] 04/13/2024 14:00 EDT Appointment [facility] Hematology & Oncology [address] [phone] 04/16/2024 10:00 EST Telemedicine [facility] - [facility] Palliative Care Services [address] [place] [address] [phone] Chichi Woods MD [address] [place] [address], [address] [place] [phone] 04/24/2024 9:00 EST Appointment [facility] Radiology CT Outpatient - [address] [id number] 04/24/2024 11:00 EST Appointment [facility] Breast Imaging - [facility] [address] [place], [place] 931011 04/27/2024 12:00 EST Appointment [facility] Hematology & Oncology - [address] [phone] 05/02/2024 15:00 EST Telemedicine [facility] Hematology & Oncology - [address] [address] Alisson Carreon MD [address] [place] [address], [facility], Level 2 [place] [phone] 05/04/2024 10:15 EST Ancillary Procedure [facility] Cardiology [place] [address] [place] [address] 05/04/2024 11:30 EST Appointment [facility] Hematology & Oncology - [address] [phone] 05/04/2024 12:00 EST Appointment [facility] Hematology & Oncology [address] [phone] 06/12/2024 13:00 EST Appointment [facility] Radiology CT - [address] [phone] documented as of this encounter Procedures Procedure Name Priority Date/Time Associated Diagnosis Comments RAD US BREAST UNILATERAL LIMITED Routine 03/08/2017 13:48 EDT documented in this encounter Results * RAD US BREAST UNILATERAL LIMITED (03/08/2017 13:48 EDT) Anatomical Region Laterality Modality Other 03/08/2017 13:4 8 EDT 03/08/2017 14:42 EDT Narrative 03/08/2017 14:42 EDT RAD US BREAST UNILATERAL LIMITED ??03/08/2017 1:48 PM Clinical History/Comments: C50.919-Malignant neoplasm of unspecified site of unspecified female [id number] C79.9-Secondary malignant neoplasm of unspecified site-ICD-10; right breast known cancer lateral aspect s/p chemotherapy, assess for response to treatment Comparisons: Ultrasound performed at the [facility] and all outside ultrasounds. Findings right breast ultrasound: The lower outer quadrant of the right breast was scanned to evaluate the size of the known cancer recurrence adjacent to the patient's implant status post drug therapy. Grayscale, Doppler and real-time imaging performed. The previous ultrasounds measured the known tumor in the sagittal and antiradial planes. For the purposes of comparison we also measured the tumor in the antiradial and sagittal planes. On today's imaging the tumor measures 2.1 x 1.3 x 1.5 cm. Previously it measured 2.3 x 1.3 x 1.5 cm. Our baseline radial and antiradial measurements are as follows: 2.3 x 1.7 x 1.9 cm. Impression right breast: BI-RADS Category 6. Known malignancy. The known recurrence in the right breast, adjacent to the implant, at the 8 o'clock position is grossly stable when measured in a similar manner to the outside studies. We obtained baseline radial and antiradial measurements as described above. Recommendation right breast: Clinical follow-up and imaging follow-up as per Dr. Colin. Overall assessment: Known malignancy. Dr. Cooley discussed the imaging findings and recommendations with the patient at the time of the examination. The patient will be notified of her breast imaging results via a lay letter from Radiology. ??Radiology will contact the patient directly regarding any findings which require additional imaging. Portions of this document may have been prepared using voice recognition software or keyboard data center operator. ??Minor irregularities or keyboard misprints may be present. Procedure Note Taylor Cooley MD - 03/08/2017 RAD US BREAST UNILATERAL LIMITED 03/08/2017 1:48 PM Clinical History/Comments: C50.919-Malignant neoplasm of unspecified site of unspecified female [id number] C79.9-Secondary malignant neoplasm of unspecified site-ICD-10; right breast known cancer lateral aspect s/p chemotherapy, assess for response to treatment Comparisons: Ultrasound performed at the [facility] and all outside ultrasounds. Findings right breast ultrasound: The lower outer quadrant of the right breast was scanned to evaluate the size of the known cancer recurrence adjacent to the patient's implant status post drug therapy. Grayscale, Doppler and real-time imaging performed. The previous ultrasounds measured the known tumor in the sagittal and antiradial planes. For the purposes of comparison we also measured the tumor in the antiradial and sagittal planes. On today's imaging the tumor measures 2.1 x 1.3 x 1.5 cm. Previously it measured 2.3 x 1.3 x 1.5 cm. Our baseline radial and antiradial measurements are as follows: 2.3 x 1.7 x 1.9 cm. Impression right breast: BI-RADS Category 6. Known malignancy. The known recurrence in the right breast, adjacent to the implant, at the 8 o'clock position is grossly stable when measured in a similar manner to the outside studies. We obtained baseline radial and antiradial measurements as described above. Recommendation right breast: Clinical follow-up and imaging follow-up as per Dr. Colin. Overall assessment: Known malignancy. Dr. Cooley discussed the imaging findings and recommendations with the patient at the time of the examination. The patient will be notified of her breast imaging results via a lay letter from Radiology. Radiology will contact the patient directly regarding any findings which require additional imaging. Portions of this document may have been prepared using voice recognition software or keyboard data center operator. Minor irregularities or keyboard misprints may be present. Augustina Colin MD PhD IMG US ORDERABLES documented in this encounter Visit Diagnoses Diagnosis Metastatic breast cancer- Primary documented in this encounter Care Teams Material Planner Relationship Specialty Start Date End Date Linda Blancas MD [facility] [address] [place] [address] PCP - General 01/06/11 documented as of this encounter
--- OUTSIDE RECORDS SUMMARY | 2024-03-20 15:07 | XMS_ITS | Encounter Summary ---
Author Organization [facility] Address [address] [place] [address] Care Team Providers Care Rn Appeals Name Role Phone Linda Blancas MD Primary Care Provider [phone] Reason for Visit * Reason Onset Date Comments Results 02/09/2017 Encounter Details Date Type Department Care Team (Late st Contact Info) Description 02/09/2017 Telephone [facility] Cancer Center Hematology & Oncology - [facility] [address] [place] [address] Augustina Colin MD PhD Results Social History [...] * Telephone Encounter - Bess Orellana - 02/09/2017 1309 EDT Lab results from [facility] lab from 02/07/2017 entered. documented in this encounter Plan of Treatment Upcoming Encounters Date Type Department Care Team (Late st Contact Info) Description 04/02/2024 10:30 EDT Appointment [facility] Interventional Radiology Unit [address] [place] [address] [phone] 04/02/2024 15:15 EDT Office Visit [facility] Surgical Oncology - [address] [phone] Adolfo Carreno MD [address] [place] [address] [address] [place] [phone] 04/05/2024 9:30 EDT Telemedicine [facility] Palliative Care Services [address] [place] [address] [phone] Chichi Woods MD [address] [place] [address] [phone] 04/11/2024 15:00 EDT Telemedicine [facility] Hematology & Oncology [address] [phone] Alisson Carreon MD [address] [place] [address] [phone] 04/13/2024 13:30 EDT Appointment [facility] Hematology & Oncology [address] [phone] 04/13/2024 14:00 EDT Appointment [facility] Hematology & Oncology [address] [phone] 04/16/2024 10:00 EST Telemedicine [facility] Palliative Care Services [address] [place] [address] [phone] Chichi Woods MD [address] [place] [address], [place] [address] [place] [phone] 04/24/2024 9:00 EST Appointment [facility] Radiology CT Outpatient - [address] [phone] 04/24/2024 11:00 EST Appointment [facility] Breast Imaging - [facility] [address] [place], [place] [phone] 04/27/2024 12:00 EST Appointment [facility] Hematology & Oncology [address] [phone] 05/02/2024 15:00 EST Telemedicine [facility] Hematology & Oncology [address] [phone] Alisson Carreon MD [address] [place] [address], [facility], Level [address] [place] [phone] 05/04/2024 10:15 EST Ancillary Procedure [facility] Cardiology - [place] [address] 05/04/2024 11:30 EST Appointment [facility] Hematology & Oncology [address] [phone] 05/04/2024 12:00 EST Appointment [facility] Hematology & Oncology [address] [phone] 06/12/2024 13:00 EST Appointment [facility] Radiology CT - [address] [phone] documented as of this encounter Procedures Procedure Name Priority Date/Time Associated Diagnosis Comments COMPLETE BLOOD COUNT AND DIFFERENTIAL Routine 02/07/2017 documented in this encounter Results * (ABNORMAL) HEMAGRAM AND DIFFERENTIAL (02/07/2017) WBC, External 3.8(A) 4.5 - 11.0 [facility] RBC, External 3.25(A) 4.00 - 5.20 [facility] Hemoglobin, External 12.0 12.0 - 15.0 [facility] HCT, External 34.5(A) 36.0 - 46.0 [facility] MCV, External 106(A) 80 - 100 [facility] MCH, External 36.9(A) 26.0 - 34.0 [facility] MCHC, External 34.8 31.0 - 37.0 [facility] PLT, External 195 150 - 350 [facility] RDW-CV, External 16.5(A) 11.5 - 14.5 [facility] Neutrophils, External 41.6 31.0 - 76.0 [facility] Lymphocytes, External 50.9(A) 24.0 - 44.0 [facility] Monocytes, External 6.1 2.0 - 11.0 [facility] Eosinophils, External 0.3(A) 1.0 - 4.0 [facility] Basophils, External 0.8 0.0 - 2.0 [facility] ABS Neutrophils, External 1.56 1.50 - 7.80 [facility] ABS Lymphs, External 1.91 1.10 - 4.80 [facility] ABS Monocytes, External 0.23 [facility] ABS Eosinophils, External 0.01 [facility] ABS Basophils, External 0.03 [facility] Blood specimen (specimen) 02/07/2017 Historical Provider PACKAGES & DNA OR OBE ORDERABLES [facility] documented in this encounter Visit Diagnoses Not on filedocumented in this encounter Care Teams Rn Appeals Relationship Specialty Start Date End Date Linda Blancas MD [address] [place] [address] [address] [place] [address] PCP - General 01/06/11 documented as of this encounter
--- OUTSIDE RECORDS SUMMARY | 2024-03-20 15:07 | XMS_ITS | Encounter Summary ---
Author Organization [facility] Address [address] [place] [address] Care Team Providers Care History Card Clerk Name Role Phone Linda Blancas MD Primary Care Provider [phone] Reason for Visit * Reason Comments Follow-up Encounter Details Date Type Department Care Team (Late st Contact Info) Description 05/02/2017 14:00 EST Office Visit [facility] Cancer Center Hematology & Oncology - [facility] [address] [place] [address] Augustina Colin MD PhD Metastatic breast cancer (CMS-HCC) (HCC-CMS) (Primary Dx) Discharge Disposition: Auto Discharge [...] Sign Reading Time Taken Comments Blood Pressure 126/64 05/02/2017 1416 EST Pulse 85 05/02/2017 1416 EST Temperature 36.6 ??C (97.9 ??F) 05/02/2017 1416 EST Respiratory Rate 16 05/02/2017 1416 EST Oxygen Saturation 99% 05/02/2017 1416 EST Inhaled Oxygen Concentration - - Weight 68.4 kg (150 lb 11.2 oz) 05/02/2017 1416 EST Height - - Body Mass Index 27.38 03/16/2017 0912 EDT documented in this encounter Functional Status [...] No 05/02/2017 documented as of this encounter Discharge Diagnoses Diagnosis C50.919 Malignant neoplasm of unspecified site of unspecified female breast-C50.919[ICD-10-CM] documented in this encounter Discharge Disposition Disposition Code Departure Means Destination Auto Discharge documented in this encounter Progress Notes * Augustina Colin MD - 05/02/2017 1400 EST REASON FOR OFFICE VISIT: Evaluation while continuing letrozole and palbociclib PROBLEM LIST: 1. 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 a. ??[place] in [place]??identifying an irregular heterogeneous soft tissue mass measuring [...] with dose reduction due to mouth sores. 2. ??DCIS in 2004 at the age [...] disease. SUBJECTIVE: Ms Pleitez presents clinic today for ongoing evaluation well receiving letrozole and palbocilib. Since we have seen her she has met with Dr. Carreno and plastics and is considering removal of her implants. This will be to step surgery and she helps to have that done within the next couple of months. With the break from palbociclib her mouth sores improved though one remains. She isjust now completing 3 weeks of palbociclib she has one mouth sore remaining but nothing new has occurred. She is seeing a oral specialist about the receding gums. She has hot flashes. It actually worse after she restarted the palbocilib. She has some diarrhea related to the drug as well. She asks about whether dry needle and could be allowed as her physical therapist is recommended. She has some joint aches and discomfort though they are not too bad. The physical therapist is working on muscleknots in her back. She continues to have regular headaches specially when she wakes up in the morning but it is controlled with ibuprofen. ROS: A 10 point review of systems was obtained. Other than described in the subjective she notes decreased appetite, occasional constipation, occasional diarrhea, fatigue relieved with rest, mild insomnia Medications Prior to Today's Visit Medication Sig ??? calcium-vitamin D (OS-CHAR D) 500 mg(1,250mg) -200 unit per tablet Take 1 Tab by mouth 2 times daily with breakfast and dinner. ??? DOXYLAMINE SUCCINATE (UNISOM ORAL) Take by mouth as needed. Takes half a tablet ??? gabapentin (NEURONTIN) 100 mg capsule Take 2 Caps by mouth 2 times daily. (Patient taking differently: Take 300 mg by mouth 2 times daily. ) ??? gabapentin (NEURONTIN) 300 mg capsule Take 2 Caps by mouth at bedtime. (Patient not taking: Reported on 04/28/2017) ??? ibuprofen (MOTRIN) 200 mg tablet Take 200-400 mg by mouth as needed. ??? letrozole (FEMARA) 2.5 mg tablet TAKE 1 TABLET DAILY ??? lidocaine (LIDOCAINE) 2 % solution 5 mL by mucous membrane route as needed for Pain. Apply to mouth sores as needed. (Patient not taking: Reported on 04/28/2017) ??? MULTIVITS W-CA,FE,OTHER MIN (WOMEN'S DAILY FORMULA ORAL) Take by mouth daily. ??? omeprazole (PRILOSEC) 20 mg capsule Take 20 mg by mouth daily. ??? palbociclib (IBRANCE) 125 mg capsule Take 100 mg by mouth daily. For 21 days on then 7 days off ??? RED YEAST RICE EXTRACT ORAL Take 1,200 mg by mouth daily. ??? valACYclovir (VALTREX) 500 mg tablet Take [...] 3 Glasses of wine per week Presents clinic alone today. Currently working on disability. Her is having a couple of surgeries in May Objective: There were no vitals taken for this visit. Estimated body mass index is 27.38 kg/(m^2) as calculated from the following: Height as of 03/16/17: 158 cm (62.21). Weight as of 03/16/17: 68.4 kg (150 lb 11.2 oz). ECOG Performance Status: 0 [...] neurologically intact DIAGNOSTIC DATA Phlebotomy Only on 05/02/2017 Component Date Value Ref Range Status ??? Potassium 05/02/2017 4.2 3.5 - 5.0 mEq/L Final ??? Sodium 05/02/2017 144 136 - 145 mEq/L Final ??? Chloride 05/02/2017 106 96 - 110 mEq/L Final ??? CO2 05/02/2017 27 22 - 32 mEq/L Final ??? Total Alkaline Phosphatase 05/02/2017 68 38 - 126 U/L Final ? ? Bilirubin, Total 05/02/2017 0.6 <1.4 mg/dl Final ??? AST 05/02/2017 21 15 - 46 U/L Final ? ? ALT 05/02/2017 29 <53 U/L Final ??? Albumin 05/02/2017 4.1 3.4 - 4.9 g/dl Final ??? Total Protein 05/02/2017 6.7 6.3 - 8.2 g/dl Final ??? Creatinine 05/02/2017 0.81 0.52 - 1.04 mg/dl Final ? ? GFR, Calculated 05/02/2017 82 >60 ml/min/1.73m2 Final Comment: eGFR calculated using CKD-EPI equation for non Americans. Multiply eGFR by 1.16 for Americans. ??? BUN 05/02/2017 22 10 - 26 mg/dl Final ??? Calcium 05/02/2017 9.1 8.5 - 10.5 mg/dl Final ??? Calculated Calcium 05/02/2017 9.0 8.5 - 10.5 mg/dl Final ??? Glucose, Serum 05/02/2017 80 70 - 100 mg/dl Final ??? Fasting? 05/02/2017 No Final ??? WBC 05/02/2017 3.88* 4.0 - 12.4 K/cmm Final ??? RBC 05/02/2017 3.34* 3.86 - 5.04 M/cmm Final ??? Hemoglobin 05/02/2017 12.7 11.6 - 15.2 gm/dl Final ??? HCT 05/02/2017 35.5 34.9 - 44.4 % Final ??? MCV 05/02/2017 106* 81 - 98 fl Final ??? MCH 05/02/2017 38.0* 26.7 - 33.3 pg Final ??? MCHC 05/02/2017 35.8 32.1 - 35.9 gm/dl Final ? ? RDW-CV 05/02/2017 11.9 <14.7 % Final ? ? RDW-SD 05/02/2017 46.1 <50.4 fl Final ??? PLT 05/02/2017 148 141 - 377 K/cmm Final ??? MPV 05/02/2017 9.9 9.5 - 12.7 fl Final ??? Neutrophils 05/02/2017 38.9 % Final ??? Lymphocytes 05/02/2017 51.5 % Final ??? Monocytes 05/02/2017 7.5 % Final ??? Eosinophils 05/02/2017 0.8 % Final ??? Basophils 05/02/2017 1.0 % Final ??? Immature Grans 05/02/2017 0.3 % Final ??? ABS Neutrophils 05/02/2017 1.51* 2.20 - 8.85 K/cmm Final ??? ABS Lymphs 05/02/2017 2.00 1.09 - 3.30 K/cmm Final ??? ABS Monocytes 05/02/2017 0.29 0.1 - 0.8 K/cmm Final ??? ABS Eosinophils 05/02/2017 0.03 0.03 - 0.61 K/cmm Final ??? ABS Basophils 05/02/2017 0.04 0.01 - 0.11 K/cmm Final ??? ABS Immature Grans 05/02/2017 0.01 0 - 0.06 K/cmm Final ??? Type of Diff: 05/02/2017 Automated Final ASSESSMENT: ??Ms Bernstein is a 56-year-old female with metastatic breast cancer with metastatic disease in the mediastinal lymph node. ??Metastatic disease was identified in the setting of a biopsy-proven skin recurrence. she has been on letrozole and palbociclib. The dose of palbociclib was reduced recently because of mouth sores. The mouth sores appear to be stable and her labs indicate adequate ANC to continue therapy. Currently she is receiving 100 mg daily for 3 weeks out of 4. We suggested that she hold the palbocilib about 2 weeks prior to her planned breast surgery. We feel that the dry needling proposed by physical therapy will be safe for her. ?? PLAN: 1. Continue letrozole 2.5 mg daily and palbociclib 100mg daily for 21 out of 28 days. ??Palbociclibwill be started next Mon. Hold palpbociclib 2 weeks prior to surgery. 2. Check CBC and differential monthly. 3. ??Follow-up return in two months ? Patient is encouraged call with any intercurrent concerns or problems. Augustina Colin MD 05/02/2017 14:06 documented in this encounter Plan of Treatment Upcoming Encounters Date Type Department Care Team (Late st Contact Info) Description 04/02/2024 10:30 EDT Appointment [facility] Interventional Radiology Unit [address] [place] [address] [phone] 04/02/2024 15:15 EDT Office Visit [facility] Surgical Oncology - [facility] [address] [phone] Adolfo Carreno MD [address] [facility], [facility], Level 2 [place] [phone] 04/05/2024 9:30 EDT Telemedicine [facility] - [facility] Palliative Care Services [address] [place] [address] Chichi Woods MD [address] [facility], [address] [phone] 04/11/2024 15:00 EDT Telemedicine [facility] Hematology & Oncology - [address] [phone] Alisson Carreon MD [address] [place] [address], [facility] 2 [place] [phone] 04/13/2024 13:30 EDT Appointment [facility] Hematology & Oncology [address] [phone] 04/13/2024 14:00 EDT Appointment [facility] Hematology & Oncology [address] [phone] 04/16/2024 10:00 EST Telemedicine [facility] - [facility] Palliative Care Services [address] [place] [address] 055491 Chichi Woods MD [address] [place] [address], [address] [phone] 04/24/2024 9:00 EST Appointment [facility] Radiology CT Outpatient - [address] [id number] 04/24/2024 11:00 EST Appointment [facility] Breast Imaging - [address] [phone] 04/27/2024 12:00 EST Appointment [facility] Hematology & Oncology - [address] [phone] 05/02/2024 15:00 EST Telemedicine [facility] Hematology & Oncology - [address] [phone] Alisson Carreon MD [address] [place] [address], [facility] 2 [place] [phone] 05/04/2024 10:15 EST Ancillary Procedure [facility] Cardiology - [address] [place] [address] 05/04/2024 11:30 EST Appointment [facility] Hematology & Oncology [address] [address] 05/04/2024 12:00 EST Appointment [facility] Hematology & Oncology [address] [phone] 06/12/2024 13:00 EST Appointment [facility] Radiology CT [address] [phone] documented as of this encounter Visit Diagnoses Diagnosis Metastatic breast cancer- Primary documented in this encounter Care Teams History Card Clerk Relationship Specialty Start Date End Date Linda Blancas MD [facility] [address] [place] [address] PCP - General 01/06/11 documented as of this encounter
--- OUTSIDE RECORDS SUMMARY | 2024-03-20 15:07 | XMS_ITS | Encounter Summary ---
Author Organization [facility] Address [address] [place] [address] Care Team Providers Care Bulk Tank Driver Name Role Phone Linda Blancas MD Primary Care Provider [phone] Reason for Visit * Reason Onset Date Comments Labs Only 02/09/2017 Encounter Details Date Type Department Care Team (Late st Contact Info) Description 02/09/2017 Telephone [facility] Cancer Center Hematology & Oncology - [facility] [address] [place] [address] Quita Rob, RN Labs Only Social History Tobacco Use [...] Telephone Encounter - Quita Rob RN - 02/09/2017 1003 EDT Called and left message for Ms Oconnorwest to notify her labs are within parameters to continue Ibrance therapy. documented in this encounter Plan of Treatment Upcoming Encounters Date Type Department Care Team (Late st Contact Info) Description 04/02/2024 10:30 EDT Appointment [facility] Interventional Radiology Unit [address] [place] [address] [phone] 04/02/2024 15:15 EDT Office Visit [facility] Surgical Oncology - [address] [phone] Adolfo Carreno MD [address] [place] [address] [phone] 04/05/2024 9:30 EDT Telemedicine [facility] Palliative Care Services [address] [place] [address] [phone] Chichi Woods MD [address] [place] [address] [phone] 04/11/2024 15:00 EDT Telemedicine [facility] Hematology & Oncology [address] [phone] Alisson Carreon MD [address] [place] [address] [phone] 04/13/2024 13:30 EDT Appointment [facility] Hematology & Oncology [address] [phone] 04/13/2024 14:00 EDT Appointment [facility] Hematology & Oncology [address] [phone] 04/16/2024 10:00 EST Telemedicine [facility] Palliative Care Services [address] [place], [place] [phone] Chichi Woods MD [address] [facility] [place] [address] [place] [phone] 04/24/2024 9:00 EST Appointment [facility] Radiology CT Outpatient - [address] [phone] 04/24/2024 11:00 EST Appointment [facility] Breast Imaging - [facility] [address] [place], [place] 965371 04/27/2024 12:00 EST Appointment [facility] Hematology & Oncology - [address] [phone] 05/02/2024 15:00 EST Telemedicine [facility] Hematology & Oncology - [address] [phone] Alisson Carreon MD [address] [place] [address], [facility], Level [address] [place] [phone] 05/04/2024 10:15 EST Ancillary Procedure [facility] Cardiology - [place] [address] 05/04/2024 11:30 EST Appointment [facility] Hematology & Oncology - [address] [phone] 05/04/2024 12:00 EST Appointment [facility] Hematology & Oncology [address] [phone] 06/12/2024 13:00 EST Appointment [facility] Radiology CT - [address] [phone] documented as of this encounter Visit Diagnoses Not on filedocumented in this encounter Care Teams Bulk Tank Driver Relationship Specialty Start Date End Date Linda Blancas MD [facility] [address] [place] [address] PCP - General 01/06/11 documented as of this encounter
--- OUTSIDE RECORDS SUMMARY | 2024-03-20 15:07 | XMS_ITS | Encounter Summary ---
Author Organization [facility] Address [address] [place] [address] Care Team Providers Care Natural Resource Technician Name Role Phone Linda Blancas MD Primary Care Provider [phone] Reason for Visit * Reason Onset Date Comments Results 03/23/2017 Encounter Details Date Type Department Care Team (Late st Contact Info) Description 03/23/2017 Telephone [facility] Cancer Center Hematology & Oncology - [facility] [address] [place] [address] Augustina Colin MD PhD Results Social History [...] Telephone Encounter - Bess Orellana - 03/23/2017 1340 EDT Lab results from [facility] Lab from 02/21/2017 entered. documented in this encounter Plan of Treatment Upcoming Encounters Date Type Department Care Team (Late st Contact Info) Description 04/02/2024 10:30 EDT Appointment [facility] Interventional Radiology Unit [address] [place] [address] [phone] 04/02/2024 15:15 EDT Office Visit [facility] Surgical Oncology - [address] [phone] Adolfo Carreno MD [address] [place] [address] [address] [place] [phone] 04/05/2024 9:30 EDT Telemedicine [facility] Palliative Care Services [address] [place] [address] [phone] Chichi Woods MD [address] [place] [address] [phone] 04/11/2024 15:00 EDT Telemedicine [facility] Hematology & Oncology [address] [phone] Alisson Carreon MD [address] [place] [address] [phone] 04/13/2024 13:30 EDT Appointment [facility] Hematology & Oncology [address] [phone] 04/13/2024 14:00 EDT Appointment [facility] Hematology & Oncology [address] [phone] 04/16/2024 10:00 EST Telemedicine [facility] Palliative Care Services [address] [place] [address] [phone] Chichi Woods MD [address] [place] [address], [address] [phone] 04/24/2024 9:00 EST Appointment [facility] Radiology CT Outpatient - [address] [phone] 04/24/2024 11:00 EST Appointment [facility] Breast Imaging - [facility] 1 [place], [place] 673111 04/27/2024 12:00 EST Appointment [facility] Hematology & Oncology [address] [phone] 05/02/2024 15:00 EST Telemedicine [facility] Hematology & Oncology [address] [phone] Alisson Carreon MD [address] [place] [address], [facility], Level [address] [place] [phone] 05/04/2024 10:15 EST Ancillary Procedure [facility] Cardiology - [place] [address] 05/04/2024 11:30 EST Appointment [facility] Hematology & Oncology - [address] [phone] 05/04/2024 12:00 EST Appointment [facility] Hematology & Oncology - [address] [phone] 06/12/2024 13:00 EST Appointment [facility] Radiology CT - [address] [phone] documented as of this encounter Procedures Procedure Name Priority Date/Time Associated Diagnosis Comments COMPLETE BLOOD COUNT AND DIFFERENTIAL Routine 02/21/2017 COMPREHENSIVE METABOLIC PANEL (CMP) Routine 02/21/2017 documented in this encounter Results * (ABNORMAL) HEMAGRAM AND DIFFERENTIAL (02/21/2017) WBC, External 4.3(A) 4.5 - 11.0 [facility] RBC, External 3.34(A) 4.00 - 5.20 [facility] Hemoglobin, External 12.5 12.0 - 15.0 [facility] HCT, External 37.1 36.0 - 46.0 [facility] MCV, External 111(A) 80 - 100 [facility] MCH, External 37.4(A) 26.0 - 34.0 [facility] MCHC, External 33.7 31.0 - 37.0 [facility] PLT, External 382(A) 150 - 350 [facility] RDW-CV, External 16.0(A) 11.5 - 14.5 [facility] Neutrophils, External 58 31 - 76 [facility] Lymphocytes, External 25 24 - 44 [facility] Monocytes, External 3 2 - 11 [facility] Eosinophils, External 0(A) 1 - 4 [facility] Basophils, External 2 0 - 2 [facility] ABS Neutrophils, External 2.5 1.5 - 7.8 [facility] ABS Lymphs, External 1.6 1.1 - 4.8 [facility] ABS Monocytes, External 0.1 [facility] ABS Eosinophils, External 0.0 [facility] ABS Basophils, External 0.1 [facility] Blood specimen (specimen) 02/21/2017 Historical Provider MD PACKAGES & DNA MD OBE ORDERABLES [facility] * (ABNORMAL) COMPREHENSIVE METABOLIC PANEL (CMP) (02/21/2017) GFR, Calculated, External 58 [facility] Glucose, Serum, External 86 74 - 106 [facility] Albumin, External 3.7 3.4 - 5.0 [facility] Total Alkaline Phosphatase, External 85 48 - 129 [facility] ALT, External 22 13 - 61 [facility] AST, External 16 15 - 37 [facility] BUN, External 20(A) 7 - 18 [facility] Calculated Calcium, External [facility] Calcium, External 8.9 8.5 - 10.1 [facility] Chloride, External 106 98 - 107 [facility] CO2, External 28 21 - 32 [facility] Creatinine, External 1.0 0.6 - 1.3 [facility] Fasting?, External [facility] Potassium, External 4.3 3.5 - 5.1 [facility] Sodium, External 142 136 - 145 [facility] Total Protein, External 7.3 6.4 - 8.2 [facility] Bilirubin, Total, External 0.59 0.20 - 1.00 [facility] Blood specimen (specimen) 02/21/2017 Historical Provider CHEMISTRY & BLOOD GAS ORDERABLES [facility] documented in this encounter Visit Diagnoses Not on filedocumented in this encounter Care Teams Natural Resource Technician Relationship Specialty Start Date End Date Linda Blancas MD [facility] [address] [place] [address] PCP - General 01/06/11 documented as of this encounter
--- OUTSIDE RECORDS SUMMARY | 2024-03-20 15:07 | XMS_ITS | Encounter Summary ---
Author Organization [facility] Address [address] [place] [address] Care Team Providers Care Linux Unix Engineer Name Role Phone Linda Blancas MD Primary Care Provider [phone] Reason for Visit * Reason Onset Date Comments Results 03/25/2017 Encounter Details Date Type Department Care Team (Late st Contact Info) Description 03/25/2017 Telephone [facility] Cancer Center Hematology & Oncology - [facility] [address] [place] [address] Quita Rob, SHELLEY Results Social History Tobacco [...] Telephone Encounter - Quita Rob RN - 03/25/2017 2345 EDT Called and left message for Ms Eldridge to notify her the results of her CT scan done today after it was reviewed by TANK Mosqueda. Encouraged pt to contact clinic with any questions or concerns. documented in this encounter Plan of Treatment Upcoming Encounters Date Type Department Care Team (Late st Contact Info) Description 04/02/2024 10:30 EDT Appointment [facility] Interventional Radiology Unit [address] [place] [address] [phone] 04/02/2024 15:15 EDT Office Visit [facility] Surgical Oncology - [address] [phone] Adolfo Carreno MD [address] [place] [address] [phone] 04/05/2024 9:30 EDT Telemedicine [facility] Palliative Care Services [address] [place] [address] [phone] Chichi Woods MD [address] [place] [address] [phone] 04/11/2024 15:00 EDT Telemedicine [facility] Hematology & Oncology [address] [phone] Alisson Carreon MD [address] [place] [address] [phone] 04/13/2024 13:30 EDT Appointment [facility] Hematology & Oncology [address] [phone] 04/13/2024 14:00 EDT Appointment [facility] Hematology & Oncology [address] [phone] 04/16/2024 10:00 EST Telemedicine [facility] - [facility] Palliative Care Services [address] [place], [place] 898071 Chichi Woods MD [address] [place] [address], [address] [phone] 04/24/2024 9:00 EST Appointment [facility] Radiology CT Outpatient - [address] [phone] 04/24/2024 11:00 EST Appointment [facility] Breast Imaging - [facility] [place] [address] [place], [place] 409691 04/27/2024 12:00 EST Appointment [facility] Hematology & Oncology - [address] [phone] 05/02/2024 15:00 EST Telemedicine [facility] Hematology & Oncology - [address] [phone] Alisson Carreon MD [address] [place] [address], [facility], Level [address] [place] [phone] 05/04/2024 10:15 EST Ancillary Procedure [facility] Cardiology [place] [place] [address] 05/04/2024 11:30 EST Appointment [facility] Hematology & Oncology - [address] [phone] 05/04/2024 12:00 EST Appointment [facility] Hematology & Oncology [address] [phone] 06/12/2024 13:00 EST Appointment [facility] Radiology CT - [address] [phone] documented as of this encounter Visit Diagnoses Not on filedocumented in this encounter Care Teams Linux Unix Engineer Relationship Specialty Start Date End Date Linda Blancas MD [address] [place] [address] PCP - General 01/06/11 documented as of this encounter
--- OUTSIDE RECORDS SUMMARY | 2024-03-20 15:07 | XMS_ITS | Encounter Summary ---
Author Organization [facility] Address [address] [place] [address] Care Team Providers Care Patient Accounts Coordinator Name Role Phone Linda Blancas MD Primary Care Provider [phone] Reason for Referral * Radiology Services (Routine) - Closed Specialty Diagnoses / Procedures Referred By Contac t Referred To Contact Diagnoses Metastatic breast cancer Procedures CT CHEST W CONTRAST Nadeen Blood PA-C 111 [facility] [address] [place] [address] Referral ID Status Reason Start Date Expiration Date Visits Re quested Visits Authorized [id number] Closed 03/16/2017 1 1 Reason for Visit * Reason Comments Follow-up Encounter Details Date Type Department Care Team (Late st Contact Info) Description 03/16/2017 9:00 EDT Office Visit [facility] Hematology & Oncology - [address] [phone] Augustina Colin MD PhD Metastatic breast cancer [...] Sign Reading Time Taken Comments Blood Pressure 115/53 03/16/2017911 EDT Pulse 99 03/16/2017911 EDT Temperature 36.6 ??C (97.8 ??F) 03/16/2017911 EDT Respiratory Rate 17 03/16/2017911 EDT Oxygen Saturation 95% 03/16/2017911 EDT Inhaled Oxygen Concentration - - Weight 68.4 kg (150 lb 11.2 oz) 03/16/2017911 EDT Height 158 cm (5' 2.21) 03/16/2017911 EDT Body Mass Index 27.38 03/16/2017911 EDT documented in this encounter Functional Status [...] No 01/13/2017 documented as of this encounter Ordered Prescriptions Prescription Sig Dispensed Refills Start Date End Da te palbociclib (IBRANCE) 125 mg capsuleIndications:Metasta tic breast cancer Take 100 mg by mouth daily. For 21 days on then 7 days off 21 Cap 3 03/16/2017 09/06/2017 documented in this encounter Progress Notes * Nadeen Blood PA - 03/16/2017 0900 EDT Sunshine Pleitez is a 56 y.o.yo female presenting in clinic today for assessment prior to ongoing AI and palbociclib therapy, given for metastatic breast cancer Chief Complaint Patient presents with ??? Follow-up PROBLEM LIST: 1. 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 a. ??Ultrasound performed in [place]??identifying an irregular heterogeneous soft tissue mass measuring 1.2 x 1.2 x 1.5 cm. ?? 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 ??HER-2 1+ by IHC. ??ANNE [...] lymph node consistent with adenocarcinoma,??breast origin e. Letrozole initiated October 2016 and palbociclib initiated November 2016 2. ??DCIS in 2004 at the age [...] ??gastroesophageal reflux disease. HISTORY OF PRESENT ILLNESS: Sendy returns for followup, lab review and symptom review, and also review of recent ultrasound of her area of recurrence (lateral right breast). She, and a bit more so, her partner, were a little frustrated by the ultrasound, as apparently there was some difficulty in determining whether there has been response versus stable disease, based on a different style of measurement done at [facility] in the past. We discussed this issue at length and Sendy was reassured that the Dr Carreno will also ultrasound the region when she sees him next week, and that there clearly does not seem to be growth of her cancer. Regarding her therapies, she has developed worsening mouth symptoms, including receding gums and actually what appears to be some gum erosion on her lower front tooth region, which is painful. Her appetite has been down. She has a preparation in her mouth before she eats. She denies her mouth symptoms are the reason for a low appetite. She will be seeing her dentist fairly soon. She denies nausea. She does feel fatigued, particularly during her weeks actively on palbociclib. Hot flashes are a longstanding issue as she experienced premature ovarian failure and in the past has been on hormone replacement therapy, which has been stopped. She states on both gabapentin and Effexor her hot flashes were down to 5/10 and now are closer to 7 to 8/10 in terms of frequency and severity. Regardless feels she can tolerate these symptoms at this time. She tells us she has been dealing with hot flashes for many, many years. REVIEW OF SYSTEMS: Symptom report form was completed and reviewed with the patient. Symptoms as discussed above. She notes headaches and tells us these do seem to be better when she is off of the palbociclib. They are rated mild to moderate. They are mostly in the morning and she states that she isable to get a little bit of extra sleep very much improved and tolerable. She takes ibuprofen just about every morning and this also helps with headache. They are not constant and they wax and wane abit in terms of severity. Some slight bowel disruption with somewhat alternating constipation and diarrhea, but both of these are low-grade. Decreased libido. Remainder of system review is negative. Past Medical History: Diagnosis Date ??? Allergy ??? Arthritis ??? Back pain ??? Breast cancer (HCC) November 2003 DCIS - right breast ??? Environmental allergies ??? Hearing loss ??? Numbness ??? Wears glasses Patient Active Problem List Diagnosis Date Noted ??? Metastatic breast cancer (HCC) 11/18/2016 Priority: Medium ??? Breast lump 10/21/2016 [...] Topics Concern ??? None Social History Narrative: Here with her Nitish. They travel here from [facility]. She is pursuing disability/SSDI as she is finding keeping up with work more and more difficult. Medications Prior to Today's Visit Medication Sig ??? calcium-vitamin D (OS-CHAR D) 500 mg(1,250mg) -200 unit per tablet Take 1 Tab by mouth 2 times daily with breakfast and dinner. ??? cetirizine (ZYRTEC) 10 mg tablet Take 10 mg by mouth daily as needed for Allergies. Reported on11/05/2016 ??? DOXYLAMINE SUCCINATE (UNISOM ORAL) Take by mouth as needed. Takes half a tablet ??? gabapentin (NEURONTIN) 100 mg capsule Take 2 Caps by mouth 2 times daily. (Patient taking differently: Take 300 mg by mouth 2 times daily. ) ??? gabapentin (NEURONTIN) 300 mg capsule Take 2 Caps by mouth at bedtime. (Patient taking differently: Take by mouth at bedtime. ) ??? ibuprofen (MOTRIN) 200 mg tablet Take 200-400 mg by mouth as needed. ??? letrozole (FEMARA) 2.5 mg tablet TAKE 1 TABLET DAILY ??? lidocaine (LIDOCAINE) 2 % solution 5 mL by mucous membrane route as needed for Pain. Apply to mouth sores as needed. ??? MULTIVITS W-CA,FE,OTHER MIN (WOMEN'S DAILY FORMULA ORAL) Take by mouth daily. ??? omeprazole (PRILOSEC) 20 mg capsule Take 20 mg by mouth daily. ??? ondansetron (ZOFRAN-ODT) 8 mg disintegrating tablet Take 1 Tab by mouth every 8 hours as neededfor Nausea. ??? palbociclib (IBRANCE) 125 mg capsule Take 125 mg by mouth daily. ??? RED YEAST [...] Allergen Reactions ??? Amoxicillin Other (See Comments) Unknown ??? Sulfa (Sulfonamide Antibiotics) Hives Light lavender rash Objective: BP 115/53 Pulse 99 Temp 36.6 ??C (97.8 ??F) (Tympanic) Resp 17 Ht 158 cm (62.21) Wt 68.4kg (150 lb 11.2 oz) SpO2 95% BMI 27.38 kg/m2 Body mass index is 27.38 kg/(m^2). Sendy appears well, and in good spirits. Mood and affect appropriate, speech and thought process intact. HEENT exam reveals some generalized recession of the patient's gums. At the base of her lower front teeth there is some erosion into the gum below the exposed tooth, which looks like exposed root versus bone. This is small area of a few millimeters. No signs of infection. Neck is supple without lymphadenopathy. No supraclavicular lymphadenopathy. Lungs are clear. Heart has regular rate and rhythm. Abdomen is soft and nontender without mass or organomegaly. Lower extremities are without edema. IMAGING: Sendy had an ultrasound on 03/08/2017 in radiology, and this is noted to show the known recurrence in the right breast, adjacent to the implant, at the 8 o'clock position is grossly stable and measured in a similar manner to the outside studies. LABORATORY: Labs from [facility] have been reviewed and will be loaded into our system. ASSESSMENT: Biopsy-proven metastatic breast cancer, with local recurrence at the edge of the breastimplant, as well as lung nodules and enlarged mediastinal nodes (there was a biopsy of a mediastinal lymph node positive for breast cancer). Sendy has been on letrozole since October of this year and palbociclib since November, the latter on a 3 weeks on and 1 week off schedule, and letrozole daily. She has had some of the expected side effects on palbociclib including fatigue and mouth sores. Her mouth sores have been slowly worsening with what appears to be some universally receding gums and an area of erosion in the area of the lower front teeth region. Counts have held up reasonably well, although I do not have the most recent labs for review. Recent reimaging of the area of recurrence close tothe lateral implant shows grossly stable disease, although there is some difficulty in comparing dimensions as compared to outside imaging. The patient was seen and discussed with Dr Augustina Colin. PLAN: 1. Continue daily letrozole. 2. We asked Sendy to hold palbociclib the next 2 weeks, given her gum symptoms. She will follow up with her dentist. Assuming this region heals off palbociclib, we would resume therapy at a reduced doses (100 mg, 3 weeks on, 1 week off). 3. Follow up as scheduled with Dr Adolfo Carreno next week. 4. We talked about other ways of measuring treatment response and discussed that a CT of the chest to look at lung nodules and lymph nodes would be appropriate at this time. We will try to get this CT set up the same day as Dr Carreno's visit, on March 25 (next Tuesday). 5. Continue routine lab work to monitor counts when back on palbociclib. 6. Follow up May 02 for return visit with Dr Colin, and assessment prior to ongoing therapy, sooner with acute concerns or questions. TANK Quintero 03/16/2017 13:22 documented in this encounter Miscellaneous Notes * Addendum Note - Quita Rob RN - 03/16/2017 1524 EDTAddended by: QUITA ROB on: 03/16/2017 15:24 Modules accepted: Orders documented in this encounter Plan of Treatment Upcoming Encounters Date Type Department Care Team (Late st Contact Info) Description 04/02/2024 10:30 EDT Appointment [facility] Interventional Radiology Unit [address] [place] [phone] 04/02/2024 15:15 EDT Office Visit [facility] Surgical Oncology - [address] [phone] Adolfo Carreno MD 111 [facility], [facility] [address] [place] [phone] 04/05/2024 9:30 EDT Telemedicine [facility] - [facility] Palliative Care Services [address], [place] [phone] Chichi Woods MD [address] [phone] 04/11/2024 15:00 EDT Telemedicine [facility] Hematology & Oncology - [address] [phone] Alisson Carreon MD [address] [place] [address], [facility] [address] [place] [phone] 04/13/2024 13:30 EDT Appointment [facility] Hematology & Oncology - [address] [phone] 04/13/2024 14:00 EDT Appointment [facility] Hematology & Oncology - [address] [phone] 04/16/2024 10:00 EST Telemedicine [facility] - [facility] Palliative Care Services [address] [place] [phone] Chichi Woods MD [address] [place] [address], [address] [phone] 04/24/2024 9:00 EST Appointment [facility] Radiology CT Outpatient - [address] [phone] 04/24/2024 11:00 EST Appointment [facility] Breast Imaging - [facility] [address] [phone] 04/27/2024 12:00 EST Appointment [facility] Hematology & Oncology - [address] [phone] 05/02/2024 15:00 EST Telemedicine [facility] Hematology & Oncology - [address] [phone] Alisson Carreon MD [address] [place] [address], [facility] [address] [place] [phone] 05/04/2024 10:15 EST Ancillary Procedure [facility] Cardiology - [address] [place], [place] [phone] 05/04/2024 11:30 EST Appointment [facility] Hematology & Oncology - [address] [phone] 05/04/2024 12:00 EST Appointment [facility] Hematology & Oncology - [address] [phone] 06/12/2024 13:00 EST Appointment [facility] Radiology CT - [address] [address] documented as of this encounter Procedures Procedure Name Priority Date/Time Associated Diagnosis Comments CT CHEST W CONTRAST Routine 03/25/2017 1 0:16 EDT Metastatic breast cancer (CMS-HCC) (HCC-CMS) documented in this encounter Results * CT CHEST W CONTRAST (03/25/2017 10:16 EDT) Anatomical Region Laterality Modality Other 03/25/2017 10:1 6 EDT 03/25/2017 11:39 EDT Narrative 03/25/2017 11:[address] CHEST W CONTRAST ??03/25/2017 10:16 AM Clinical History/Comments: C50.919-Malignant neoplasm of unspecified site of unspecified female breast (HCC)-ICD-10; breast CA metastatic to lymph nodes, ? lung, eval therapy response v progression Technique: A single breath-hold helical CT acquisition [...] PACS workstation for analysis. Comparison: Chest CT October 27, 2016 and whole body bone scan October 27, 2016 Findings: CT of the chest performed after IV contrast administration. Lower neck: No significant abnormalities. Chest wall soft tissues: The soft tissues lesion with skin retraction lateral to the right breast implant is decreased in size. Bilateral subpectoral saline implants appear intact. Mediastinum and mariann: The mediastinal sherrie tissue has decreased to normal size. Heart and mediastinal vasculature: ??There is coronary atherosclerosis. Large airways: ??No significant abnormalities. Lungs: ??Multiple pulmonary nodules are redemonstrated. The 4 mm nodule in the superior segment right lower lobe is unchanged. Many of these are stable in size. The nodule in the anterior basal segment right lower lobe is decreased in size. No new nodules are identified. Pleura: No significant abnormalities. Upper abdomen (limited to upper abdomen, not optimized for abdominal imaging): No significant abnormalities. Bones: ??No osseous metastases identified. Impression: 1. Decreased size of lateral right breast soft tissue mass and resolution of known metastatic mediastinal lymphadenopathy with no new disease identified. 2. The numerous pulmonary nodules are either stable or decreased in size. Again, these could reflect metastatic disease, inflammatory etiology, or a combination. 3. Coronary atherosclerosis 4. Intact subpectoral bilateral saline implants I have personally reviewed the images and the above interpretation and agree with the findings. Procedure Note Shady Fallon MD - 03/25/2017 CT CHEST W CONTRAST 03/25/2017 10:16 AM Clinical History/Comments: C50.919-Malignant neoplasm of unspecified site of unspecified female breast (HCC)-ICD-10; breast CA metastatic to lymph nodes, ? lung, eval therapy response v progression Technique: A single breath-hold helical CT acquisition [...] PACS workstation for analysis. Comparison: Chest CT October 27, 2016 and whole body bone scan October 27, 2016 Findings: CT of the chest performed after IV contrast administration. Lower neck: No significant abnormalities. Chest wall soft tissues: The soft tissues lesion with skin retraction lateral to the right breast implant is decreased in size. Bilateral subpectoral saline implants appear intact. Mediastinum and mariann: The mediastinal sherrie tissue has decreased to normal size. Heart and mediastinal vasculature: There is coronary atherosclerosis. Large airways: No significant abnormalities. Lungs: Multiple pulmonary nodules are redemonstrated. The 4 mm nodule in the superior segment right lower lobe is unchanged. Many of these are stable in size. The nodule in the anterior basal segment right lower lobe is decreased in size. No new nodules are identified. Pleura: No significant abnormalities. Upper abdomen (limited to upper abdomen, not optimized for abdominal imaging): No significant abnormalities. Bones: No osseous metastases identified. Impression: 1. Decreased size of lateral right breast soft tissue mass and resolution of known metastatic mediastinal lymphadenopathy with no new disease identified. 2. The numerous pulmonary nodules are either stable or decreased in size. Again, these could reflect metastatic disease, inflammatory etiology, or a combination. 3. Coronary atherosclerosis 4. Intact subpectoral bilateral saline implants I have personally reviewed the images and the above interpretation and agree with the findings. Nadeen Blood PA-C IMG CT ORDERABLES documented in this encounter Visit Diagnoses Diagnosis Metastatic breast cancer- Primary documented in this encounter Discontinued Medications Medication Sig Discontinue Reason Start Date End Da te cetirizine (ZYRTEC) 10 mg tablet Take 10 mg by mouth daily as needed for Allergies. Reported on 11/05/2016 03/16/2017 ondansetron (ZOFRAN-ODT) 8 mg disintegrating tabletIndications:Metasta tic breast cancer,Chemotherapy induced nausea and vomiting Take 1 Tab by mouth every 8 hours as needed for Nausea. 11/24/2016 03/16/2017 palbociclib (IBRANCE) 125 mg capsuleIndications:Malign ant neoplasm of female breast, unspecified laterality, unspecified site of breast,Metastatic breast cancer Take 125 mg by mouth daily. Reorder 01/12/2017 03/16/2017 documented as of this encounter Care Teams Patient Accounts Coordinator Relationship Specialty Start Date End Date Linda Blancas MD [facility] [address] [place] [address] PCP - General 01/06/11 documented as of this encounter
--- OUTSIDE RECORDS SUMMARY | 2024-03-20 15:07 | XMS_ITS | Encounter Summary ---
Author Organization [facility] Address [address] [place] [address] Care Team Providers Care Bench Precision Assembler Name Role Phone Linda Blancas MD Primary Care Provider [phone] Reason for Visit * Reason Onset Date Comments Paperwork request 03/22/2017 Encounter Details Date Type Department Care Team (Late st Contact Info) Description 03/22/2017 Telephone [facility] Cancer Center Hematology & Oncology - [facility] [address] [place] [address] Augustina Colin MD PhD Paperwork request Social [...] Telephone Encounter - Quita Rob RN - 03/22/2017 1344 EDT Called and left message for Ms Pleitez to notify her Dr Colin has been out of the clinic but will be returning tomorrow. Pt notified paperwork will be signed tomorrow and emailed to her. * Telephone Encounter - Elma Browning - 03/22/2017 1231 EDT Reason for Call: Paperwork request Summary/Symptoms: Pt calling to follow up on paperwork. Please call. Elma Noerandallrosie 03/22/2017 12:31 documented in this encounter Plan of Treatment Upcoming Encounters Date Type Department Care Team (Late st Contact Info) Description 04/02/2024 10:30 EDT Appointment [facility] Interventional Radiology Unit [address] [place] [phone] 04/02/2024 15:15 EDT Office Visit [facility] Surgical Oncology - [address] [phone] Adolfo Carreno MD [address] [place] [phone] 04/05/2024 9:30 EDT Telemedicine [facility] - [facility] Palliative Care Services [address] [place] [phone] Chichi Woods MD [address] [place] [phone] 04/11/2024 15:00 EDT Telemedicine [facility] Hematology & Oncology - [address] [phone] Alisson Carreon MD [address] [place] [phone] 04/13/2024 13:30 EDT Appointment [facility] Hematology & Oncology - [address] [address] 04/13/2024 14:00 EDT Appointment [facility] Hematology & Oncology - [address] [address] 04/16/2024 10:00 EST Telemedicine [facility] - [facility] Palliative Care Services [address] [place] [phone] Chichi Woods MD [address] [place] [phone] 04/24/2024 9:00 EST Appointment [facility] Radiology CT Outpatient - [address] [address] 04/24/2024 11:00 EST Appointment [facility] Breast Imaging - [facility] [address] [place] [address] [place], [place] [phone] 04/27/2024 12:00 EST Appointment [facility] Hematology & Oncology [address] [phone] 05/02/2024 15:00 EST Telemedicine [facility] Hematology & Oncology - [address] [address] Alisson Carreon MD [address] [place], [place] [address]ili, [address] [place] [phone] 05/04/2024 10:15 EST Ancillary Procedure [facility] Cardiology [place] [place] [address] 05/04/2024 11:30 EST Appointment [facility] Hematology & Oncology - [address] [phone] 05/04/2024 12:00 EST Appointment [facility] Cancer Center Hematology & Oncology - [address] [phone] 06/12/2024 13:00 EST [facility]ointment [facility] Rad[facility] - [address] [phone] documented as of this encounter Visit Diagnoses Not on filedocumented in this encounter Care Teams Bench Precision Assembler Relationship Specialty Start Date End Date Linda Blancas MD [facility] [address] [place] [address] PCP - General 01/06/11 documented as of this encounter
--- OUTSIDE RECORDS SUMMARY | 2024-03-20 15:07 | XMS_ITS | Encounter Summary ---
Author Organization [facility] Address [address] [place] [address] Care Team Providers Care Developer Automatic Name Role Phone Linda Blancas MD Primary Care Provider [phone] Encounter Details Date Type Department Care Team (Late st Contact Info) Description 03/25/2017 Results Only Imaging [facility] Surgical Oncology - [address] [phone] Adolfo Carreno MD [address] [place] [address], Level 2 [place] [address] Social History Tobacco Use Types [...] No 01/13/2017 documented as of this encounter Plan of Treatment Upcoming Encounters Date Type Department Care Team (Late st Contact Info) Description 04/02/2024 10:30 EDT Appointment [facility] Interventional Radiology Unit [address] [place] [address] [phone] 04/02/2024 15:15 EDT Office Visit [facility] Surgical Oncology - [address] [phone] Adolfo Carreno MD [address] [place] [address] [phone] 04/05/2024 9:30 EDT Telemedicine [facility] [address] [place] [address] [phone] Chichi Woods MD [address] [place] [address] [phone] 04/11/2024 15:00 EDT Telemedicine [facility] Hematology & Oncology [address] [phone] Alisson Carreon MD [address] [place] [address] [phone] 04/13/2024 13:30 EDT Appointment [facility] Hematology & Oncology [address] [phone] 04/13/2024 14:00 EDT Appointment [facility] Hematology & Oncology [address] [phone] 04/16/2024 10:00 EST Telemedicine [facility] [address] [place] [address] [phone] Chichi Woods MD [address] [place] [address] [phone] 04/24/2024 9:00 EST Appointment [facility] Radiology CT Outpatient - [address] [address] 04/24/2024 11:00 EST Appointment [facility] Breast Imaging - [facility] [address] [address] [place], [place] [phone] 04/27/2024 12:00 EST Appointment [facility] Hematology & Oncology - [address] [phone] 05/02/2024 15:00 EST Telemedicine [facility] Hematology & Oncology [address] [phone] Alisson Carreon MD [address] [place] [address], Level 2 [place] [phone] 05/04/2024 10:15 EST Ancillary Procedure [facility] Cardiology - [place] [address] 05/04/2024 11:30 EST Appointment [facility] Hematology & Oncology [address] [phone] 05/04/2024 12:00 EST Appointment [facility] Hematology & Oncology [address] [phone] 06/12/2024 13:00 EST Appointment [facility] Radiology CT - [address] [phone] documented as of this encounter Procedures Procedure Name Priority Date/Time Associated Diagnosis Comments [facility] ONLY 03/25/2017 17:00 EDT documented in this encounter Results * [facility] ONLY (03/25/2017 17:00 EDT) Anatomical Region Laterality Modality Other 03/25/2017 17:0 0 EDT Narrative 03/25/2017 17:00 EDT See Notes Tab. Procedure Note TUBE ROOM SUPERVISOR, IMAGING - 03/25/2017 See Notes Tab. Adolfo Carreno MD [facility] ORDERABLES documented in this encounter Visit Diagnoses Not on filedocumented in this encounter Care Teams Developer Automatic Relationship Specialty Start Date End Date Linda Blancas MD [facility] [address] [place] [address] PCP - General 01/06/11 documented as of this encounter
--- OUTSIDE RECORDS SUMMARY | 2024-03-20 15:07 | XMS_ITS | Encounter Summary ---
Author Organization [facility] Address [address] [place] [address] Care Team Providers Care Purse Maker Name Role Phone Linda Blancas MD Primary Care Provider [phone] Reason for Visit * Reason Onset Date Comments Results 03/23/2017 Encounter Details Date Type Department Care Team (Late st Contact Info) Description 03/23/2017 Telephone [facility] Hematology & Oncology - [facility] [address] [place] [address] Augustina Colin MD PhD Results Social History [...] Telephone Encounter - Bess Orellana - 03/23/2017 1231 EDT Lab results from [facility] from 03/14/2017 entered. documented in this encounter Plan of Treatment Upcoming Encounters Date Type Department Care Team (Late st Contact Info) Description 04/02/2024 10:30 EDT Appointment [facility] Interventional Radiology Unit [address] [place] [address] [phone] 04/02/2024 15:15 EDT Office Visit [facility] Surgical Oncology - [address] [phone] Adolfo Carreno MD [address] [place] [address] 2 [place] [phone] 04/05/2024 9:30 EDT Telemedicine [facility] [address] [place] [address] [phone] Chichi Woods MD [address] [place] [address] [phone] 04/11/2024 15:00 EDT Telemedicine [facility] Hematology & Oncology [address] 454191 Alisson Carreon MD [address] [place] [address] [phone] 04/13/2024 13:30 EDT Appointment [facility] Hematology & Oncology [address] [phone] 04/13/2024 14:00 EDT Appointment [facility] Hematology & Oncology [address] [phone] 04/16/2024 10:00 EST Telemedicine [facility] [address] [place] [address] [phone] Chichi Woods MD [address] [place] [address], [address] [phone] 04/24/2024 9:00 EST Appointment [facility] Radiology CT Outpatient - [address] [id number] 04/24/2024 11:00 EST Appointment [facility] Breast Imaging - [address] [phone] 04/27/2024 12:00 EST Appointment [facility] Hematology & Oncology - [address] [phone] 05/02/2024 15:00 EST Telemedicine [facility] Hematology & Oncology [address] [phone] Alisson Carreon MD [address] [place] [address], [facility], Level 2 [place] [phone] 05/04/2024 10:15 EST Ancillary Procedure [facility] Cardiology [place] [address] 05/04/2024 11:30 EST Appointment [facility] Hematology & Oncology - [address] [phone] 05/04/2024 12:00 EST Appointment [facility] Hematology & Oncology - [address] [phone] 06/12/2024 13:00 EST Appointment [facility] Radiology CT - [address] [phone] documented as of this encounter Procedures Procedure Name Priority Date/Time Associated Diagnosis Comments COMPLETE BLOOD COUNT AND DIFFERENTIAL Routine 03/14/2017 COMPREHENSIVE METABOLIC PANEL (CMP) Routine 03/14/2017 documented in this encounter Results * COMPREHENSIVE METABOLIC PANEL (CMP) (03/14/2017) GFR, Calculated, External >60 [facility] Glucose, Serum, External 91 74 - 106 [facility] Albumin, External 3.9 3.4 - 5.0 [facility] Total Alkaline Phosphatase, External 91 48 - 129 [facility] ALT, External 23 13 - 61 [facility] AST, External 21 15 - 37 [facility] BUN, External 14 7 - 18 [facility] Calculated Calcium, External [facility] Calcium, External 9.4 8.5 - 10.1 [facility] Chloride, External 103 98 - 107 [facility] CO2, External 31 21 - 32 [facility] Creatinine, External 0.8 0.6 - 1.3 [facility] Fasting?, External [facility] Potassium, External 4.6 3.5 - 5.1 [facility] Sodium, External 141 136 - 145 [facility] Total Protein, External 7.6 6.4 - 8.2 [facility] Bilirubin, Total, External 0.30 0.20 - 1.00 [facility] Blood specimen (specimen) 03/14/2017 Historical Provider CHEMISTRY & BLOOD GAS ORDERABLES [facility] * (ABNORMAL) HEMAGRAM AND DIFFERENTIAL (03/14/2017) WBC, External 5.4 4.5 - 11.0 [facility] RBC, External 3.18(A) 4.00 - 5.20 [facility] Hemoglobin, External 12.5 12.0 - 15.0 [facility] HCT, External 35.0(A) 36.0 - 46.0 [facility] MCV, External 110(A) 80 - 100 [facility] MCH, External 39.3(A) 21.0 - 34.0 [facility] MCHC, External 35.7 31.0 - 37.0 [facility] PLT, External 245 150 - 350 [facility] RDW-CV, External 14.4 11.5 - 14.5 [facility] Neutrophils, External 46.6 31.0 - 76.0 [facility] Lymphocytes, External 39.6 24.0 - 44.0 [facility] Monocytes, External 11.9(A) 2.0 - 11.0 [facility] Eosinophils, External 0.6(A) 1.0 - 4.0 [facility] Basophils, External 0.9 0.0 - 2.0 [facility] ABS Neutrophils, External 2.50 1.50 - 7.80 [facility] ABS Lymphs, External 2.12 1.10 - 4.80 [facility] ABS Monocytes, External 0.64 [facility] ABS Eosinophils, External 0.03 [facility] ABS Basophils, External 0.05 [facility] Blood specimen (specimen) 03/14/2017 Historical Provider PACKAGES & DNA IA OBE ORDERABLES [facility] documented in this encounter Visit Diagnoses Not on filedocumented in this encounter Care Teams Purse Maker Relationship Specialty Start Date End Date Linda Blancas MD [address] [place] [address] 30 [place] [address] PCP - General 01/06/11 documented as of this encounter
--- OUTSIDE RECORDS SUMMARY | 2024-03-20 15:07 | XMS_ITS | Encounter Summary ---
Author Organization [facility] Address [address] [place] [address] Care Team Providers Care Relationship Executive Name Role Phone Linda Blancas MD Primary Care Provider [phone] Encounter Details Date Type Department Care Team (Latest Contact Info) Description 03/08/2017 13:05 EDT - 03/08/2017 23:59 EDT Hospital Encounter [facility] [address] [place] [address] Linda Blancas MD [address] [place], [place] 287632 Discharge Disposition: Auto Discharge Social History Tobacco [...] as of this encounter Discharge Diagnoses Diagnosis C50.911 Malignant neoplasm of unspecified site of right female breast-C50.911[ICD-10-CM] documented in this encounter Medications at Time [...] by mouth daily. 90 Tab 3 08/16/2012 cetirizine (ZYRTEC) 10 mg tablet Take 10 mg by mouth daily as needed for Allergies. Reported on 11/05/2016 03/16/2017 DOXYLAMINE SUCCINATE (UNISOM ORAL) Take by mouth [...] as needed. 08/30/2018 letrozole (FEMARA) 2.5 mg tabletIndications:Persona l history of malignant neoplasm of breast,Breast lump TAKE 1 TABLET DAILY 90 Tab 3 01/20/2017 01/15/2018 lidocaine (LIDOCAINE) 2 % solutionIndications:Metas tatic breast cancer,Mouth sores 5 mL by mucous membrane route as needed for Pain. Apply to mouth sores as needed. 100 mL 1 01/13/2017 06/16/2017 omeprazole (PRILOSEC) 20 mg capsule Take 1 Capsule by mouth daily. 03/28/2023 ondansetron (ZOFRAN-ODT) 8 mg disintegrating tabletIndications:Metasta tic breast cancer,Chemotherapy induced nausea and vomiting Take 1 Tab by mouth every 8 hours as needed for Nausea. 30 Tab 2 11/24/2016 03/16/2017 palbociclib (IBRANCE) 125 mg capsuleIndications:Malign ant neoplasm of female breast, unspecified laterality, unspecified site of breast,Metastatic breast cancer Take 125 mg by mouth daily. 21 Cap 3 01/12/2017 03/16/2017 venlafaxine (EFFEXOR-XR) 150 mg XR capsule Take [...] [facility] Interventional Radiology Unit [address] [place] [address] [phone] 04/02/2024 15:15 EDT Office Visit [facility] Surgical Oncology - [address] [phone] Adolfo Carreno MD [address] [place] [address] 2 [place] [phone] 04/05/2024 9:30 EDT Telemedicine [facility] Palliative Care Services [address] [place] [address] [phone] Chichi Woods MD [address] [place] [address] [phone] 04/11/2024 15:00 EDT Telemedicine [facility] Hematology & Oncology [address] [phone] Alisson Carreon MD [address] [place] [address] [phone] 04/13/2024 13:30 EDT Appointment [facility] Hematology & Oncology [address] [address] 04/13/2024 14:00 EDT Appointment [facility] Hematology & Oncology - [address] [address] 04/16/2024 10:00 EST Telemedicine [facility] Palliative Care Services [address] [place] [address] Chichi Woods MD [address] [place] [address], [address] [phone] 04/24/2024 9:00 EST Appointment [facility] Radiology CT Outpatient - [address] [id number] 04/24/2024 11:00 EST Appointment [facility] Breast Imaging - [facility] S [address] 121851 04/27/2024 12:00 EST Appointment [facility] Hematology & Oncology - [address] [phone] 05/02/2024 15:00 EST Telemedicine [facility] Hematology & Oncology - [address] 183601 Alisson Carreon MD [address] [place] [address], [facility] 2 [place] [phone] 05/04/2024 10:15 EST Ancillary Procedure [facility] Cardiology - [place] [address] 05/04/2024 11:30 EST Appointment [facility] Hematology & Oncology - [address] [address] 05/04/2024 12:00 EST Appointment [facility] Hematology & Oncology - [address] [phone] 06/12/2024 13:00 [facility] Rad[facility] - [address] [address] documented as of this encounter Visit Diagnoses Not on filedocumented in this encounter Care Teams Relationship Executive Relationship Specialty Start Date End Date Linda Blancas MD [address] [place] [address] 30 [place] [address] PCP - General 01/06/11 documented as of this encounter
--- OUTSIDE RECORDS SUMMARY | 2024-03-20 15:07 | XMS_ITS | Encounter Summary ---
Author Organization [facility] Address [address] [place] [address] Care Team Providers Care Street Engineer Name Role Phone Linda Blancas MD Primary Care Provider [phone] Reason for Visit * Reason Comments Follow-up reoccuring cancer st age 3 to stage 4 * Consult (Routine) - Closed Specialty Diagnoses / Procedures Referred By Doug hearn Referred To Contact Plastic Surgery Diagnoses Breast cancer (HCC-CMS) Adolfo Carreno MD [address] [facility] 2 [place] [address] Tylor Boss MD [address] [address] Referral ID Status Reason Start Date Expiration Date Visits Re quested Visits Authorized [id number] Closed 1 1 Encounter Details Date Type Department Care Team (Late st Contact Info) Description 04/28/2017 15:00 EST Office Visit [facility] Plastic, Reconstructive & Cosmetic Surgery - [address], [address] [place] [address] Tylor Boss MD [address] [phone] Malignant neoplasm of right female breast, unspecified estrogen receptor status, unspecified site of breast (HCC) (Primary Dx) Social History Tobacco Use Types [...] Progress Notes * Tylor Boss MD - 04/28/2017 1500 EST Sendy follows up to further discuss exchange of her right post operatively adjustable saline implant to a silicone implant. Her metastatic workup did show lung nodules and mediastinal lymphadenopathy, which was biopsied showing metastatic breast cancer. ??She reports that she is doing well on her ch emotherapy. She talked with Dr Carreno and reports that he is now willing to go ahead and remove theright breast cancer. Sendy hopes that we can change the implant out at the same time which I think that this is a very reasonable plan. We discussed the exchange of her saline implant to silicone implants. We reviewed the risks and benefits of the surgical procedure. We discussed that implants are mechanical devices and do have a failure rate and therefore likely will require further surgery for replacement. We discussed capsular contracture (all grades), implant palpability/rippling, infection/tissue necrosis/implant exposure (which would likely require implant removal). We discussed the sign ificantly increased risk of complications in programmer analyst consultant/implant reconstruction patient's who receive postoperative radiation or have received previous radiation therapy for any reason. Signed informed consent was obtained today. I spent 50 minutes with this patient; 45 minutes was spent in counseling and coordination of care as described in the progress note. Tylor Boss MD 05/01/2017 23:08 documented in this encounter Plan of Treatment Upcoming Encounters Date Type Department Care Team (Late st Contact Info) Description 04/02/2024 10:30 EDT Appointment [facility] Interventional Radiology Unit [address] [place] [address] [phone] 04/02/2024 15:15 EDT Office Visit [facility] Surgical Oncology - [address] [phone] Adolfo Carreno MD [address] [place] [address] [phone] 04/05/2024 9:30 EDT Telemedicine [facility] Palliative Care Services [address] [place] [address] [phone] Chicih Woods MD [address] [place] [address] [phone] 04/11/2024 15:00 EDT Telemedicine [facility] Hematology & Oncology - [address] [phone] Alisson Carreon MD [address] [place] [address] [phone] 04/13/2024 13:30 EDT Appointment [facility] Hematology & Oncology [address] [phone] 04/13/2024 14:00 EDT Appointment [facility] Hematology & Oncology [address] [phone] 04/16/2024 10:00 EST Telemedicine [facility] Palliative Care Services [address] [place] [address] [phone] Chichi Woods MD [address] [place] [address] [phone] 04/24/2024 9:00 EST Appointment [facility] Radiology CT Outpatient - [address] [phone] 04/24/2024 11:00 EST Appointment [facility] Breast Imaging - [facility] [place] 1 [place], [place] 136061 04/27/2024 12:00 EST Appointment [facility] Hematology & Oncology - [address] [phone] 05/02/2024 15:00 EST Telemedicine [facility] Hematology & Oncology [address] [phone] Alisson Carreon MD [address] [place] [address], Level 2 [place] [phone] 05/04/2024 10:15 EST Ancillary Procedure [facility] Cardiology - [address] [place] [address] 05/04/2024 11:30 EST Appointment [facility] Hematology & Oncology - [address] [address] 05/04/2024 12:00 EST Appointment [facility] Hematology & Oncology - [address] [phone] 06/12/2024 13:00 EST Appointment [facility] Radiology CT - [address] 154531 documented as of this encounter Visit Diagnoses Diagnosis Malignant neoplasm of right female breast, unspecified estrogen receptor status, unspecified site of breast (HCC)- Primary documented in this encounter Care Teams Street Engineer Relationship Specialty Start Date End Date Linda Blancas MD [facility] [address] [place] [address] PCP - General 01/06/11 documented as of this encounter
--- OUTSIDE RECORDS SUMMARY | 2024-03-20 15:07 | XMS_ITS | Encounter Summary ---
Author Organization [facility] Address [address] [place] [address] Care Team Providers Care Enterprise Systems Administrator Name Role Phone Linda Blancas MD Primary Care Provider [phone] Reason for Visit * Reason Onset Date Comments Results 03/23/2017 Encounter Details Date Type Department Care Team (Late st Contact Info) Description 03/23/2017 Telephone [facility] Cancer Center Hematology & Oncology - [facility] [address] [place] [address] Augustina Colin MD PhD Results Social History [...] Telephone Encounter - Bess Orellana - 03/23/2017 1354 EDT Lab results from [facility] lab from 02/07/2017 entered. documented in this encounter Plan of Treatment Upcoming Encounters Date Type Department Care Team (Late st Contact Info) Description 04/02/2024 10:30 EDT Appointment [facility] Interventional Radiology Unit [address] [place] [address] [phone] 04/02/2024 15:15 EDT Office Visit [facility] Surgical Oncology - [address] [phone] Adolfo Carreno MD [address] [place] [address] 2 [place] [phone] 04/05/2024 9:30 EDT Telemedicine [facility] Palliative Care Services [address] [place] [address] [phone] Chichi Woods MD [address] [place] [address] [phone] 04/11/2024 15:00 EDT Telemedicine [facility] Hematology & Oncology [address] [phone] Alisson Crareon MD [address] [place] [address] [phone] 04/13/2024 13:30 EDT Appointment [facility] Hematology & Oncology [address] 256671 04/13/2024 14:00 EDT Appointment [facility] Hematology & Oncology [address] 708001 04/16/2024 10:00 EST Telemedicine [facility] Palliative Care Services [address] [place] [address] 868101 Chichi Woods MD [address] [place] [address], [address] [phone] 04/24/2024 9:00 EST Appointment [facility] Radiology CT Outpatient - [address] [id number] 04/24/2024 11:00 EST Appointment [facility] Breast Imaging - [facility] 1 [place], [place] 749341 04/27/2024 12:00 EST Appointment [facility] Hematology & Oncology [address] [phone] 05/02/2024 15:00 EST Telemedicine [facility] Hematology & Oncology [address] [phone] Alisson Carreon MD [address] [place] [address], [facility] Level 2 [place] [phone] 05/04/2024 10:15 EST Ancillary Procedure [facility] Cardiology - [address] [place] [address] 05/04/2024 11:30 EST Appointment [facility] Hematology & Oncology [address] [phone] 05/04/2024 12:00 EST Appointment [facility] Hematology & Oncology - [address] [phone] 06/12/2024 13:00 EST Appointment [facility] Radiology CT - [address] [phone] documented as of this encounter Procedures Procedure Name Priority Date/Time Associated Diagnosis Comments COMPREHENSIVE METABOLIC PANEL (CMP) Routine 02/07/2017 documented in this encounter Results * (ABNORMAL) COMPREHENSIVE METABOLIC PANEL (CMP) (02/07/2017) GFR, Calculated, External 43 [facility] Glucose, Serum, External 101 74 - 106 [facility] Albumin, External 3.6 3.4 - 5.0 [facility] Total Alkaline Phosphatase, External 87 48 - 129 [facility] ALT, External 23 13 - 61 [facility] AST, External 18 15 - 37 [facility] BUN, External 21(A) 7 - 18 [facility] Calculated Calcium, External [facility] Calcium, External 9.0 8.5 - 10.1 [facility] Chloride, External 107 98 - 107 [facility] CO2, External 29 21 - 32 [facility] Creatinine, External 1.3 0.6 - 1.3 [facility] Fasting?, External [facility] Potassium, External 4.8 3.5 - 5.1 [facility] Sodium, External 142 136 - 145 [facility] Total Protein, External 7.2 6.4 - 8.2 [facility] Bilirubin, Total, External 0.45 0.20 - 1.00 [facility] Blood specimen (specimen) 02/07/2017 Historical Provider CHEMISTRY & BLOOD GAS ORDERABLES [facility] documented in this encounter Visit Diagnoses Not on filedocumented in this encounter Care Teams Enterprise Systems Administrator Relationship Specialty Start Date End Date Linda Blancas MD [address] [place] [address] 30 [place] [address] PCP - General 01/06/11 documented as of this encounter
--- OUTSIDE RECORDS SUMMARY | 2024-03-20 15:07 | XMS_ITS | Encounter Summary ---
Author Organization [facility] Address [address] [place] [address] Care Team Providers Care Staff Forester Name Role Phone Linda Blancas MD Primary Care Provider [phone] Reason for Visit * Reason Onset Date Comments Results 03/23/2017 Encounter Details Date Type Department Care Team (Late st Contact Info) Description 03/23/2017 Telephone [facility] Cancer Center Hematology & Oncology - [facility] [address] [place] [address] Augustina Colin MD PhD Results Social History [...] Telephone Encounter - Bess Orellana - 03/23/2017 1332 EDT Lab results from [facility] Lab from 02/28/2017 entered. documented in this encounter Plan of Treatment Upcoming Encounters Date Type Department Care Team (Late st Contact Info) Description 04/02/2024 10:30 EDT Appointment [facility] Interventional Radiology Unit [address] [place] [address] [phone] 04/02/2024 15:15 EDT Office Visit [facility] Surgical Oncology - [address] [phone] Adolfo Carreno MD [address] [place] [address] 2 [place] [phone] 04/05/2024 9:30 EDT Telemedicine [facility] Palliative Care Services [address] [place] [address] [phone] Chichi Woods MD [address] [place] [address] [phone] 04/11/2024 15:00 EDT Telemedicine [facility] Hematology & Oncology [address] 344211 Alisson Carreon MD [address] [place] [address] [phone] 04/13/2024 13:30 EDT Appointment [facility] Hematology & Oncology [address] [phone] 04/13/2024 14:00 EDT Appointment [facility] Hematology & Oncology [address] [phone] 04/16/2024 10:00 EST Telemedicine [facility] Palliative Care Services [address] [place] [address] [phone] Chichi Woods MD [address] [place] [address], [address] [phone] 04/24/2024 9:00 EST Appointment [facility] Radiology CT Outpatient - [address] [phone] 04/24/2024 11:00 EST Appointment [facility] Breast Imaging - [facility] 1 [place], [place] 406131 04/27/2024 12:00 EST Appointment [facility] Hematology & Oncology [address] [phone] 05/02/2024 15:00 EST Telemedicine [facility] Hematology & Oncology [address] [phone] Alisson Carreon MD [address] [place] [address], [facility], Level 2 [place] [phone] 05/04/2024 10:15 EST Ancillary Procedure [facility] Cardiology - [address] [place] [address] 05/04/2024 11:30 EST Appointment [facility] Hematology & Oncology [address] [phone] 05/04/2024 12:00 EST Appointment [facility] Hematology & Oncology - [address] [phone] 06/12/2024 13:00 EST Appointment [facility] Radiology CT - [address] [phone] documented as of this encounter Procedures Procedure Name Priority Date/Time Associated Diagnosis Comments COMPLETE BLOOD COUNT AND DIFFERENTIAL Routine 02/28/2017 COMPREHENSIVE METABOLIC PANEL (CMP) Routine 02/28/2017 documented in this encounter Results * (ABNORMAL) HEMAGRAM AND DIFFERENTIAL (02/28/2017) WBC, External 3.1(A) 4.5 - 11.[address] [facility] RBC, External 2.98(A) 4.00 - 5.20 [facility] Hemoglobin, External 11.4(A) 12.0 - 15.0 [facility] HCT, External 32.7(A) 36.0 - 46.0 [facility] MCV, External 110(A) 80 - [address] [facility] MCH, External 38.3(A) 26.0 - 34.0 [facility] MCHC, External 34.9 31.0 - 37.0 [facility] PLT, External 322 150 - [address] [facility] RDW-CV, External 15.1(A) 11.5 - 14.5 [facility] Neutrophils, External 40.6 31.0 - 76.0 [facility] Lymphocytes, External 51.3(A) 24.0 - 44.0 [facility] Monocytes, External 6.2 2.0 - 11.0 [facility] Eosinophils, External 1.3 1.0 - 4.0 [facility] Basophils, External 0.3 0.0 - 2.0 [facility] ABS Neutrophils, External 1.25(A) 1.50 - 7.80 [facility] ABS Lymphs, External 1.58 1.10 - 4.80 [facility] ABS Monocytes, External 0.19 [facility] ABS Eosinophils, External 0.04 [facility] ABS Basophils, External 0.01 [facility] Blood specimen (specimen) 02/28/2017 Historical Provider MD PACKAGES & DNA [place] OBE ORDERABLES [facility] * (ABNORMAL) COMPREHENSIVE METABOLIC PANEL (CMP) (02/28/2017) GFR, Calculated, External >60 [facility] Glucose, Serum, External 87 74 - 106 [facility] Albumin, External 3.5 3.4 - 5.0 [facility] Total Alkaline Phosphatase, External 72 48 - 129 [facility] ALT, External 20 13 - [address] [facility] AST, External 17 15 - [address] [facility] BUN, External 21(A) 7 - [address] [facility] Calculated Calcium, External [facility] Calcium, External 9.0 8.5 - 10.1 [facility] Chloride, External 109(A) 98 - 107 [facility] CO2, External 28 21 - [address] [facility] Creatinine, External 0.9 0.6 - 1.3 [facility] Fasting?, External [facility] Potassium, External 4.5 3.5 - 5.1 [facility] Sodium, External 142 136 - 145 [facility] Total Protein, External 6.7 6.4 - 8.2 [facility] Bilirubin, Total, External 0.55 0.20 - 1.00 [facility] Blood specimen (specimen) 02/28/2017 Historical Provider CHEMISTRY & BLOOD GAS ORDERABLES [facility] documented in this encounter Visit Diagnoses Not on filedocumented in this encounter Care Teams Staff Forester Relationship Specialty Start Date End Date Linda Blancas MD [address] [place] [address] PCP - General 01/06/11 documented as of this encounter
--- OUTSIDE RECORDS SUMMARY | 2024-03-20 15:07 | XMS_ITS | Encounter Summary ---
Author Organization [facility] Address [address] [place] [address] Care Team Providers Care Director Marketing Analytics Name Role Phone Linda Blancas MD Primary Care Provider [phone] Reason for Visit * Reason Onset Date Comments Pharmacy 03/25/2017 Reference number [id number] Encounter Details Date Type Department Care Team (Late st Contact Info) Description 03/25/2017 Telephone [facility] Cancer Center Hematology & Oncology - [address] [address] Augustina Colin MD PhD Pharmacy (Reference number [id number]) Social History Tobacco Use Types Packs/Day Years [...] Encounter - Quita Rob RN - 03/25/2017 1302 EDT Faxed prescription to [facility] for ibrance 100mg tabs daily for 21 days of a 28day cycle signed by TANK Lemus. * Telephone Encounter - Ralf Bryan Shae - 03/25/2017 1133 EDT Need clarification on the Ibrance that was just sent over. Thank you documented in this encounter Plan of Treatment Upcoming Encounters Date Type Department Care Team (Late st Contact Info) Description 04/02/2024 10:30 EDT Appointment [facility] Interventional Radiology Unit [address] [place] [address] [phone] 04/02/2024 15:15 EDT Office Visit [facility] Surgical Oncology - [address] [phone] Adolfo Carreno MD [address] [place] [address], [facility] 2 [place] [phone] 04/05/2024 9:30 EDT Telemedicine [facility] - [facility] Palliative Care Services [address] [place] [address] [phone] Chichi Woods MD [address] [place] [address] [phone] 04/11/2024 15:00 EDT Telemedicine [facility] Hematology & Oncology - [address] [phone] Alisson Carreon MD [address] [place] [address], [facility] 2 [place] [phone] 04/13/2024 13:30 EDT Appointment [facility] Hematology & Oncology - [address] [phone] 04/13/2024 14:00 EDT Appointment [facility] Hematology & Oncology [address] [address] 04/16/2024 10:00 EST Telemedicine [facility] - [facility] Palliative Care Services [address] [place] [address] [phone] Chichi Woods MD [address] [place] [address], [address] [phone] 04/24/2024 9:00 EST Appointment [facility] Radiology CT Outpatient - [address] 120021 04/24/2024 11:00 EST Appointment [facility] Breast Imaging - [facility] [place] 1 [place], [place] 515831 04/27/2024 12:00 EST Appointment [facility] Hematology & Oncology [address] 290891 05/02/2024 15:00 EST Telemedicine [facility] Hematology & Oncology [address] 378191 Alisson Carreon MD [address] [place] [address], Level 2 [place] [phone] 05/04/2024 10:15 EST Ancillary Procedure [facility] Cardiology - [place] [address] 05/04/2024 11:30 EST Appointment [facility] Hematology & Oncology [address] [phone] 05/04/2024 12:00 EST Appointment [facility] Hematology & Oncology [address] [phone] 06/12/2024 13:00 EST Appointment [facility] Radiology CT - Main [place] [address] [place], [place] 494801 documented as of this encounter Visit Diagnoses Not on filedocumented in this encounter Care Teams Director Marketing Analytics Relationship Specialty Start Date End Date Linda Blancas MD [facility] [address] [place] [address] PCP - General 01/06/11 documented as of this encounter
--- OUTSIDE RECORDS SUMMARY | 2024-03-20 15:07 | XMS_ITS | Encounter Summary ---
Author Organization [facility] Address [address] [place] [address] Care Team Providers Care Physicians And Surgeons Name Role Phone Linda Blancas MD Primary Care Provider Reason for Visit * Reason Onset Date Comments Paperwork request 03/17/2017 Encounter Details Date Type Department Care Team (Late st Contact Info) Description 03/17/2017 Telephone [facility] Cancer Center Hematology & Oncology - [facility] [address] [place] [address] Quita Rob RN Paperwork request Social History Tobacco Use Types [...] Telephone Encounter - Quita Rob RN - 03/17/2017 8615 EDT Ms Pleitez called to notify our office an additional page needs to be completed for disability paperwork. Pt has emailed paperwork to database report writer. * Telephone Encounter - Anna Henriquez - 03/17/2017 7882 EDT Patient calling to speak to Quita in regards to the private e-mail she sent. She states that she needs it filled out, faxed back to [facility] and then have a scan copy of that e-mailed back to her. documented in this encounter Plan of Treatment Upcoming Encounters Date Type Department Care Team (Late st Contact Info) Description 04/02/2024 10:30 EDT Appointment [facility] Interventional Radiology Unit [address] [place] [address] [phone] 04/02/2024 15:15 EDT Office Visit [facility] Surgical Oncology - [address] [phone] Adolfo Carreno MD [address] [place] [address] [phone] 04/05/2024 9:30 EDT Telemedicine [facility] - [facility] Palliative Care Services [address] [place] [address] [phone] Chichi Woods MD [address] [place] [address] [phone] 04/11/2024 15:00 EDT Telemedicine [facility] Hematology & Oncology - [address] [phone] Alisson Carreon MD [address] [place] [address] 2 [place] [phone] 04/13/2024 13:30 EDT Appointment [facility] Hematology & Oncology - [address] [phone] 04/13/2024 14:00 EDT Appointment [facility] Hematology & Oncology - [address] [address] 04/16/2024 10:00 EST Telemedicine [facility] [address] [place] [address] 846251 Chichi Woods MD [address] [place] [address] [phone] 04/24/2024 9:00 EST Appointment [facility] Radiology CT Outpatient - [address] [address] 04/24/2024 11:00 EST Appointment [facility] Breast Imaging - [facility] S [address] [phone] 04/27/2024 12:00 EST Appointment [facility] Hematology & Oncology [address] [address] 05/02/2024 15:00 EST Telemedicine [facility] Hematology & Oncology - [address] [address] Alisson Carreon MD [address] [place], [place] [address]ili, Level 2 [place] [phone] 05/04/2024 10:15 EST Ancillary Procedure [facility] Cardiology - [place] [address] 05/04/2024 11:30 EST Appointment [facility] Hematology & Oncology - [address] 136141 05/04/2024 12:00 EST Appointment [facility] Cancer Center Hematology & Oncology - [address] [phone] 06/12/2024 13:00 EST [facility] Radiology CT - [address] [address] documented as of this encounter Visit Diagnoses Not on filedocumented in this encounter Care Teams Physicians And Surgeons Relationship Specialty Start Date End Date Linda Blancas MD [facility] [address] [place] [address] PCP - General 01/06/11 documented as of this encounter
--- OUTSIDE RECORDS SUMMARY | 2024-03-20 15:07 | XMS_ITS | Encounter Summary ---
Author Organization [facility] Address [address] [place] [address] Care Team Providers Care Carpet Installer Helper Name Role Phone Linda Blancas MD Primary Care Provider [phone] Reason for Visit * Reason Onset Date Comments Medication Management 03/17/2017 Encounter Details Date Type Department Care Team (Late st Contact Info) Description 03/17/2017 Telephone [facility] Hematology & Oncology - [facility] [address] [place] [address] Quita Rob, vice president of marketing Management Social History Tobacco Use Types Packs/Day [...] Encounter - Quita Rob RN - 03/17/2017 1029 EDT New prescription for ibrance reflecting dose decrease of 100mg tabs has been faxed to [facility] at [phone]. documented in this encounter Plan of Treatment Upcoming Encounters Date Type Department Care Team (Late st Contact Info) Description 04/02/2024 10:30 EDT Appointment [facility] Interventional Radiology Unit [address] [place] [address] [phone] 04/02/2024 15:15 EDT Office Visit [facility] Surgical Oncology - [address] [phone] Adolfo Carreno MD [address] [place] [address] [phone] 04/05/2024 9:30 EDT Telemedicine [facility] - [facility] Palliative Care Services [address] [place] [address] [phone] Chichi Woods MD [address] [place] [address] [phone] 04/11/2024 15:00 EDT Telemedicine [facility] Hematology & Oncology [address] [phone] Alisson Carreon MD [address] [place] [address] 2 [place] [phone] 04/13/2024 13:30 EDT Appointment [facility] Hematology & Oncology [address] [phone] 04/13/2024 14:00 EDT Appointment [facility] Hematology & Oncology [address] 540681 04/16/2024 10:00 EST Telemedicine [facility] - [facility] Palliative Care Services [address] [place], [place] 537731 Chichi Woods MD [address] [place], [address] [phone] 04/24/2024 9:00 EST Appointment [facility] Radiology CT Outpatient - [address] [phone] 04/24/2024 11:00 EST Appointment [facility] Breast Imaging - [facility] [place] 1 [place], [place] 179931 04/27/2024 12:00 EST Appointment [facility] Hematology & Oncology - [address] 469331 05/02/2024 15:00 EST Telemedicine [facility] Hematology & Oncology - [address] 439851 Alisson Carreon MD [address] [place] [address], Level [address] [place] [phone] 05/04/2024 10:15 EST Ancillary Procedure [facility] Cardiology - [address] [place], [place] [phone] 05/04/2024 11:30 EST Appointment [facility] Hematology & Oncology - [address] [phone] 05/04/2024 12:00 EST Appointment [facility] Hematology & Oncology - [address] [phone] 06/12/2024 13:00 EST Appointment [facility] Radiology CT - [address] [phone] documented as of this encounter Visit Diagnoses Not on filedocumented in this encounter Care Teams Carpet Installer Helper Relationship Specialty Start Date End Date Linda Blancas MD [facility] [address] [place] [address] PCP - General 01/06/11 documented as of this encounter
--- OUTSIDE RECORDS SUMMARY | 2024-03-20 15:07 | XMS_ITS | Encounter Summary ---
Author Organization [facility] Address [address] [place] [address] Care Team Providers Care Load Out Worker Name Role Phone Linda Blancas MD Primary Care Provider [phone] Reason for Visit * Reason Onset Date Comments Results 03/23/2017 Encounter Details Date Type Department Care Team (Late st Contact Info) Description 03/23/2017 Telephone [facility] Hematology & Oncology - [facility] [address] [place] [address] Augustina Colin MD PhD Results Social History [...] Telephone Encounter - Bess Orellana - 03/23/2017 5366 EDT Lab results from [facility] Lab from 01/17/2017 entered. documented in this encounter Plan of Treatment Upcoming Encounters Date Type Department Care Team (Late st Contact Info) Description 04/02/2024 10:30 EDT Appointment [facility] Interventional Radiology Unit [address] [place] [address] [phone] 04/02/2024 15:15 EDT Office Visit [facility] Surgical Oncology - [address] [phone] Adolfo Carreno MD [address] [place] [address] 2 [place] [phone] 04/05/2024 9:30 EDT Telemedicine [facility] Palliative Care Services [address] [place] [address] [phone] Chichi Woods MD [address] [place] [address] [phone] 04/11/2024 15:00 EDT Telemedicine [facility] Hematology & Oncology [address] [phone] Alisson Carreon MD [address] [place] [address] [phone] 04/13/2024 13:30 EDT Appointment [facility] Hematology & Oncology [address] [phone] 04/13/2024 14:00 EDT Appointment [facility] Hematology & Oncology [address] [id number] 04/16/2024 10:00 EST Telemedicine [facility] Palliative Care Services [address] [place] [address] [phone] Chichi Woods MD [address] [place] [address], [address] [phone] 04/24/2024 9:00 EST Appointment [facility] Radiology CT Outpatient - [address] [id number] 04/24/2024 11:00 EST Appointment [facility] Breast Imaging - [facility] [address] [place], [place] 332451 04/27/2024 12:00 EST Appointment [facility] Hematology & Oncology [address] [phone] 05/02/2024 15:00 EST Telemedicine [facility] Hematology & Oncology [address] [phone] Alisson Carreon MD [address] [place] [address], [facility] Level 2 [place] [phone] 05/04/2024 10:15 EST Ancillary Procedure [facility] Cardiology - [address] [place] [address] 05/04/2024 11:30 EST Appointment [facility] Hematology & Oncology [address] [id number] 05/04/2024 12:00 EST Appointment [facility] Hematology & Oncology - [address] [phone] 06/12/2024 13:00 EST Appointment [facility] Radiology CT - [address] [id number] documented as of this encounter Procedures Procedure Name Priority Date/Time Associated Diagnosis Comments COMPLETE BLOOD COUNT AND DIFFERENTIAL Routine 01/17/2017 COMPREHENSIVE METABOLIC PANEL (CMP) Routine 01/17/2017 documented in this encounter Results * (ABNORMAL) HEMAGRAM AND DIFFERENTIAL (01/17/2017) WBC, External 4.4(A) 4.5 - 11.0 [facility] RBC, External 3.36(A) 4.00 - 5.20 [facility] Hemoglobin, External 12.0 12.0 - 15.0 [facility] HCT, External 34.0(A) 36.0 - 46.0 [facility] MCV, External 101(A) 80 - 100 [facility] MCH, External 35.7(A) 26.0 - 34.0 [facility] MCHC, External 35.3 31.0 - 37.0 [facility] PLT, External 258 150 - 350 [facility] RDW-CV, External 16.9(A) 11.5 - 14.5 [facility] Neutrophils, External 35.3 31.0 - 76.0 [facility] Lymphocytes, External 52.0(A) 24.0 - 44.0 [facility] Monocytes, External 11.1(A) 2.0 - 11.0 [facility] Eosinophils, External 0.7(A) 1.0 - 4.0 [facility] Basophils, External 0.7 0.0 - 2.0 [facility] ABS Neutrophils, External 1.56 1.50 - 7.80 [facility] ABS Lymphs, External 2.30 1.10 - 4.80 [facility] ABS Monocytes, External 0.49 [facility] ABS Eosinophils, External 0.03 [facility] ABS Basophils, External 0.03 [facility] Blood specimen (specimen) 01/17/2017 Historical Provider MD PACKAGES & DNA IN OBE ORDERABLES [facility] * (ABNORMAL) COMPREHENSIVE METABOLIC PANEL (CMP) (01/17/2017) Pathologist [facility] GFR, Calculated, External >60 [facility] Glucose, Serum, External 80 74 - 106 [facility] Albumin, External 3.8 3.4 - 5.0 [facility] Total Alkaline Phosphatase, External 89 48 - 129 [facility] ALT, External 23 13 - 61 [facility] AST, External 20 15 - 37 [facility] BUN, External 20(A) 7 - 18 [facility] Calculated Calcium, External [facility] Calcium, External 9.3 8.5 - 10.1 [facility] Chloride, External 104 98 - 107 [facility] CO2, External 29 21 - 32 [facility] Creatinine, External 0.7 0.6 - 1.3 [facility] Fasting?, External [facility] Potassium, External 4.3 3.5 - 5.1 [facility] Sodium, External 141 136 - 145 [facility] Total Protein, External 7.4 6.4 - 8.2 [facility] Bilirubin, Total, External 0.35 0.20 - 1.00 [facility] Blood specimen (specimen) 01/17/2017 Historical Provider CHEMISTRY & BLOOD GAS ORDERABLES [facility] documented in this encounter Visit Diagnoses Not on filedocumented in this encounter Care Teams Load Out Worker Relationship Specialty Start Date End Date Linda Blancas MD [address] [place] [address] PCP - General 01/06/11 documented as of this encounter
--- OUTSIDE RECORDS SUMMARY | 2024-03-20 15:07 | XMS_ITS | Encounter Summary ---
Author Organization [facility] Address [address] [place] [address] Care Team Providers Care Sheet Pile Hammer Operator Name Role Phone Linda Blancas MD Primary Care Provider [phone] Reason for Visit * Reason Onset Date Comments Results 03/23/2017 Encounter Details Date Type Department Care Team (Late st Contact Info) Description 03/23/2017 Telephone [facility] Hematology & Oncology - [facility] [address] [place] [address] Augustina Colin MD PhD Results Social History [...] Telephone Encounter - Bess Orellana - 03/23/2017 0306 EDT Lab results from [facility] Lab from 01/24/2017 entered. documented in this encounter Plan of Treatment Upcoming Encounters Date Type Department Care Team (Late st Contact Info) Description 04/02/2024 10:30 EDT Appointment [facility] Interventional Radiology Unit [address] [place] [address] [phone] 04/02/2024 15:15 EDT Office Visit [facility] Surgical Oncology - [address] [phone] Adolfo Carreno MD [address] [place] [address] 2 [place] [phone] 04/05/2024 9:30 EDT Telemedicine [facility] Palliative Care Services [address] [place] [address] [phone] Chichi Woods MD [address] [place] [address] [phone] 04/11/2024 15:00 EDT Telemedicine [facility] Hematology & Oncology [address] [phone] Alisson Carreon MD [address] [place] [address] [phone] 04/13/2024 13:30 EDT Appointment [facility] Hematology & Oncology [address] [phone] 04/13/2024 14:00 EDT Appointment [facility] Hematology & Oncology [address] [phone] 04/16/2024 10:00 EST Telemedicine [facility] Palliative Care Services [address] [place] [address] [phone] Chichi Woods MD [address] [place] [address], [address] [phone] 04/24/2024 9:00 EST Appointment [facility] Radiology CT Outpatient - [address] [id number] 04/24/2024 11:00 EST Appointment [facility] Breast Imaging - [facility] 1 [place], [place] 309751 04/27/2024 12:00 EST Appointment [facility] Hematology & Oncology [address] [phone] 05/02/2024 15:00 EST Telemedicine [facility] Hematology & Oncology [address] [phone] Alisson Carreon MD [address] [place] [address], [facility] Level [address] [place] [phone] 05/04/2024 10:15 EST Ancillary Procedure [facility] Cardiology - [address] [place] [address] 05/04/2024 11:30 EST Appointment [facility] Hematology & Oncology - [address] [phone] 05/04/2024 12:00 EST Appointment [facility] Hematology & Oncology - [address] [phone] 06/12/2024 13:00 EST Appointment [facility] Radiology CT - [address] [id number] documented as of this encounter Procedures Procedure Name Priority Date/Time Associated Diagnosis Comments COMPLETE BLOOD COUNT AND DIFFERENTIAL Routine 01/24/2017 COMPREHENSIVE METABOLIC PANEL (CMP) Routine 01/24/2017 documented in this encounter Results * (ABNORMAL) HEMAGRAM AND DIFFERENTIAL (01/24/2017) WBC, External 4.0(A) 4.5 - 11.0 [facility] RBC, External 3.41(A) 4.00 - 5.20 [facility] Hemoglobin, External 12.1 12.0 - 15.0 [facility] HCT, External 35.2(A) 36.0 - 46.0 [facility] MCV, External 103(A) 80 - 100 [facility] MCH, External 35.5(A) 26.0 - 34.0 [facility] MCHC, External 34.4 31.0 - 37.0 [facility] PLT, External 346 150 - 350 [facility] RDW-CV, External 17.1(A) 11.5 - 14.5 [facility] Neutrophils, External 41.1 31.0 - 76.0 [facility] Lymphocytes, External 50.0(A) 24.0 - 44.0 [facility] Monocytes, External 6.3 2.0 - 11.0 [facility] Eosinophils, External 0.8(A) 1.0 - 4.0 [facility] Basophils, External 1.8 0.0 - 2.0 [facility] ABS Neutrophils, External 1.64 1.50 - 7.80 [facility] ABS Lymphs, External 1.99 1.10 - 4.80 [facility] ABS Monocytes, External 0.25 [facility] ABS Eosinophils, External 0.03 [facility] ABS Basophils, External 0.07 [facility] Blood specimen (specimen) 01/24/2017 Historical Provider MD PACKAGES & DNA GA OBE ORDERABLES [facility] * (ABNORMAL) COMPREHENSIVE METABOLIC PANEL (CMP) (01/24/2017) GFR, Calculated, External >60 [facility] Glucose, Serum, External 88 74 - 106 [facility] Albumin, External 3.5 3.4 - 5.0 [facility] Total Alkaline Phosphatase, External 84 48 - 129 [facility] ALT, External 25 13 - 61 [facility] AST, External 22 15 - 37 [facility] BUN, External 19(A) 7 - 18 [facility] Calculated Calcium, External [facility] Calcium, External 8.9 8.5 - 10.1 [facility] Chloride, External 108(A) 98 - 107 [facility] CO2, External 28 21 - 32 [facility] Creatinine, External 0.9 0.6 - 1.3 [facility] Fasting?, External [facility] Potassium, External 4.5 3.5 - 5.1 [facility] Sodium, External 142 136 - 145 [facility] Total Protein, External 7.1 6.4 - 8.2 [facility] Bilirubin, Total, External 0.44 0.20 - 1.00 [facility] Blood specimen (specimen) 01/24/2017 Historical Provider CHEMISTRY & BLOOD GAS ORDERABLES [facility] documented in this encounter Visit Diagnoses Not on filedocumented in this encounter Care Teams Sheet Pile Hammer Operator Relationship Specialty Start Date End Date Linda Blancas MD [address] [place] [address] PCP - General 01/06/11 documented as of this encounter
--- OUTSIDE RECORDS SUMMARY | 2024-03-20 15:07 | XMS_ITS | Encounter Summary ---
Author Organization [facility] Address [address] [place] [address] Care Team Providers Care Bookkeeper Receptionist Name Role Phone Linda Blancas MD Primary Care Provider [phone] Reason for Visit * Reason Comments Follow-up Encounter Details Date Type Department Care Team (Late st Contact Info) Description 03/25/2017 15:30 EDT Office Visit [facility] Surgical Oncology - [address] [address] Adolfo Carreno MD [address] [facility], Level 2 [place] [phone] Malignant neoplasm of nipple of right breast in female, unspecified estrogen receptor status (CMS-HCC) (HCC-CMS) (Primary Dx) Discharge Disposition: Auto [...] of lung field-R91.8[ICD-10-CM] documented in this encounter Discharge Disposition Disposition Code Departure Means Destination Auto Discharge documented in this encounter Progress Notes * Adolfo Carreno MD - 03/25/2017 1530 EDT This office note has been dictated. * Adolfo Carreno MD - 03/25/2017 0000 EDT [facility]CER CENTER BREAST CANCER PROGRAM PROGRESS / FOLLOWUP NOTE - 03/25/2017 PROBLEM: The patient is seen in followup. SUBJECTIVE: The patient is a 56-year-old woman [...] staging CT scan of the chest done earlier today. OBJECTIVE: On exam today, is in no [...] abdominal tenderness, no hepatoor splenomegaly was noted. DIAGNOSTIC DATA: Ultrasound evaluation [...] the internal mammary or axillary region. The patient's staging CT scan that she had done earlier in the day showed that the lymphadenopathy in the mediastinum has resolved and that she has still numerous pulmonary nodules, but these are alleither stable or decreased in size. ASSESSMENT: Therefore, the patient appears to be [...] think that would be a reasonable option. Adolfo Carreno MD 10 40 AM - Adolfo Carreno MD mn Dictation ID: [id number] cc: Linda Blancas MD, [place] [address] Augustina Colin MD, [facility] - Hematology Oncology [address] [place] [address] Tylor Boss MD, [facility] - Plastic Surgery [address] [facility], [address], [place] [address] documented in this encounter Plan of Treatment Upcoming Encounters Date Type Department Care Team (Late st Contact Info) Description 04/02/2024 10:30 EDT Appointment [facility] Interventional Radiology Unit [address] [place] [address] [phone] 04/02/2024 15:15 EDT Office Visit [facility] Surgical Oncology - [address] [phone] Adolfo Carreno MD [address] [place] [address] [phone] 04/05/2024 9:30 EDT Telemedicine [facility] Palliative Care Services [address] [place] [address] [phone] Chichi Woods MD [address] [place] [address] [phone] 04/11/2024 15:00 EDT Telemedicine [facility] Hematology & Oncology [address] [phone] Alisson Carreon MD [address] [place] [address] [phone] 04/13/2024 13:30 EDT Appointment [facility] Hematology & Oncology [address] [phone] 04/13/2024 14:00 EDT Appointment [facility] Hematology & Oncology [address] [phone] 04/16/2024 10:00 EST Telemedicine [facility] Palliative Care Services [address] [place], [place] 521011 Chichi Woods MD 111 [facility], [address] [phone] 04/24/2024 9:00 EST Appointment [facility] Radiology CT Outpatient - [address] [id number] 04/24/2024 11:00 EST Appointment [facility] Breast Imaging - [facility] 1 [place], [place] 011621 04/27/2024 12:00 EST Appointment [facility] Hematology & Oncology - [address] [phone] 05/02/2024 15:00 EST Telemedicine [facility] Hematology & Oncology - [address] [phone] Alisson Carreon MD [address] [place] [address], [facility], Level 2 [place] [phone] 05/04/2024 10:15 EST Ancillary Procedure [facility] Cardiology - [place] [address] 05/04/2024 11:30 EST Appointment [facility] Hematology & Oncology - [address] [phone] 05/04/2024 12:00 EST Appointment [facility] Hematology & Oncology [address] [phone] 06/12/2024 13:00 EST Appointment [facility] Radiology CT - [address] [phone] documented as of this encounter Visit Diagnoses Diagnosis Malignant neoplasm of nipple of right breast in female, unspecified estrogen receptor status (HCC-CMS)- Primary documented in this encounter Care Teams Bookkeeper Receptionist Relationship Specialty Start Date End Date Linda Blancas MD [address] [place] [address] PCP - General 01/06/11 documented as of this encounter
--- OUTSIDE RECORDS SUMMARY | 2024-03-20 15:07 | XMS_ITS | Encounter Summary ---
Author Organization [facility] Address [address] [place] [address] Care Team Providers Care Digital Campaign Specialist Name Role Phone Linda Blancas MD Primary Care Provider [phone] Reason for Visit * Reason Onset Date Comments Results 03/23/2017 Encounter Details Date Type Department Care Team (Late st Contact Info) Description 03/23/2017 Telephone [facility] Center Hematology & Oncology - [facility] [address] [place] [address] Augustina Colin MD PhD Results Social History [...] Telephone Encounter - Bess Orellana - 03/23/2017 1350 EDT Lab results from [facility] lab from 02/15/2017 entered. documented in this encounter Plan of Treatment Upcoming Encounters Date Type Department Care Team (Late st Contact Info) Description 04/02/2024 10:30 EDT Appointment [facility] Interventional Radiology Unit [address] [place] [address] [phone] 04/02/2024 15:15 EDT Office Visit [facility] Surgical Oncology - [address] [phone] Adolfo Carreno MD [address] [place] [address] 2 [place] [phone] 04/05/2024 9:30 EDT Telemedicine [facility] Palliative Care Services [address] [place] [address] [phone] Chichi Woods MD [address] [place] [address] [phone] 04/11/2024 15:00 EDT Telemedicine [facility] Hematology & Oncology [address] [phone] Alisson Carreon MD [address] [place] [address] [phone] 04/13/2024 13:30 EDT Appointment [facility] Hematology & Oncology [address] [phone] 04/13/2024 14:00 EDT Appointment [facility] Hematology & Oncology [address] [phone] 04/16/2024 10:00 EST Telemedicine [facility] Palliative Care Services [address] [place] [address] [phone] Chichi Woods MD [address] [place] [address], [address] [phone] 04/24/2024 9:00 EST Appointment [facility] Radiology CT Outpatient - [address] [phone] 04/24/2024 11:00 EST Appointment [facility] Breast Imaging - [facility] 1 [place], [place] 684171 04/27/2024 12:00 EST Appointment [facility] Hematology & Oncology [address] [phone] 05/02/2024 15:00 EST Telemedicine [facility] Hematology & Oncology [address] [phone] Alisson Carreon MD [address] [place] [address], [facility], Level 2 [place] [phone] 05/04/2024 10:15 EST Ancillary Procedure [facility] Cardiology - [address] [place] [address] 05/04/2024 11:30 EST Appointment [facility] Hematology & Oncology - [address] [phone] 05/04/2024 12:00 EST Appointment [facility] Hematology & Oncology - [address] [phone] 06/12/2024 13:00 EST Appointment [facility] Radiology CT - [address] [phone] documented as of this encounter Procedures Procedure Name Priority Date/Time Associated Diagnosis Comments COMPLETE BLOOD COUNT AND DIFFERENTIAL Routine 02/15/2017 COMPREHENSIVE METABOLIC PANEL (CMP) Routine 02/15/2017 documented in this encounter Results * (ABNORMAL) HEMAGRAM AND DIFFERENTIAL (02/15/2017) WBC, External 4.1(A) 4.5 - 11.0 [facility] RBC, External 3.06(A) 4.00 - 5.20 [facility] Hemoglobin, External 11.5(A) 12.0 - 15.0 [facility] HCT, External 33.2(A) 36.0 - 46.0 [facility] MCV, External 109(A) 80 - 100 [facility] MCH, External 37.6(A) 26.0 - 34.0 [facility] MCHC, External 34.6 31.0 - 37.0 [facility] PLT, External 237 150 - 350 [facility] RDW-CV, External 17.0(A) 11.5 - 14.5 [facility] Neutrophils, External 39.9 31.0 - 76.0 [facility] Lymphocytes, External 46.4(A) 24.0 - 44.0 [facility] Monocytes, External 12.3(A) 2 - 11.0 [facility] Eosinophils, External 0.5(A) 1.0 - 4.0 [facility] Basophils, External 0.7 0.0 - 2.0 [facility] ABS Neutrophils, External 1.65 1.50 - 7.80 [facility] ABS Lymphs, External 1.92 1.10 - 4.80 [facility] ABS Monocytes, External 0.51 [facility] ABS Eosinophils, External 0.02 [facility] ABS Basophils, External 0.03 [facility] Blood specimen (specimen) 02/15/2017 Historical Provider MD PACKAGES & DNA LA OBE ORDERABLES [facility] * (ABNORMAL) COMPREHENSIVE METABOLIC PANEL (CMP) (02/15/2017) Pathologist [facility] GFR, Calculated, External >60 [facility] Glucose, Serum, External 100 74 - 106 [facility] Albumin, External 3.9 3.4 - 5.0 [facility] Total Alkaline Phosphatase, External 87 48 - 129 [facility] ALT, External 23 13 - 61 [facility] AST, External 15 15 - 37 [facility] BUN, External 16 7 - 18 [facility] Calculated Calcium, External [facility] Calcium, External 9.1 8.5 - 10.1 [facility] Chloride, External 108(A) 98 - 107 [facility] CO2, External 28 21 - 32 [facility] Creatinine, External 0.8 0.6 - 1.3 [facility] Fasting?, External [facility] Potassium, External 4.3 3.5 - 5.1 [facility] Sodium, External 143 136 - 145 [facility] Total Protein, External 7.2 6.4 - 8.2 [facility] Bilirubin, Total, External 0.25 0.20 - 1.00 [facility] Blood specimen (specimen) 02/15/2017 Historical Provider CHEMISTRY & BLOOD GAS ORDERABLES [facility] documented in this encounter Visit Diagnoses Not on filedocumented in this encounter Care Teams Digital Campaign Specialist Relationship Specialty Start Date End Date Linda Blancas MD [address] [place] [address] PCP - General 01/06/11 documented as of this encounter
--- OUTSIDE RECORDS SUMMARY | 2024-03-20 15:07 | XMS_ITS | Encounter Summary ---
Author Organization [facility] Address [address] [place] [address] Care Team Providers Care Crocodile Farmer Name Role Phone Linda Blancas MD Primary Care Provider [phone] Reason for Visit * Reason Onset Date Comments Paperwork request 03/23/2017 insurance Jose rwork as discussed yesterday Encounter Details Date Type Department Care Team (Late st Contact Info) Description 03/23/2017 Telephone [facility] Hematology & Oncology - [address] [place] [address] Augustina Colin MD PhD Paperwork request (insurance Paperwork as discussed yesterday) Social History Tobacco Use Types Packs/Day Years [...] Telephone Encounter - Quita Rob RN - 03/24/2017 1133 EDT Called and notified pt paperwork has been faxed for disability and a copy was emailed to pt. Pt states she slipped while on her boat and hit her right breast on the side of the boat and now is experiencing some pain in that area like a bruise . Pt is scheduled for a CT scan tomorrow and was made aware any acute changes would be seen on her CT scan. Pt advised to treat symptoms as needed. * Telephone Encounter - Sharda Johnson - 03/23/2017 1647 EDT Reason for Call: Paperwork request (insurance Paperwork as discussed yesterday) Summary/Symptoms: Patient calling to follow up on paperwork request by Quita to be faxed. Sharda Johnson 03/23/2017 16:47 documented in this encounter Plan of Treatment Upcoming Encounters Date Type Department Care Team (Late st Contact Info) Description 04/02/2024 10:30 EDT Appointment [facility] Interventional Radiology Unit [address] [place] [address] [phone] 04/02/2024 15:15 EDT Office Visit [facility] Surgical Oncology - [address] [phone] Adolfo Carreno MD 111 [facility], Level 2 [place] [phone] 04/05/2024 9:30 EDT Telemedicine [facility] - [facility] Palliative Care Services [address] [place], [place] [phone] Chichi Woods MD 111 [facility], [address] [phone] 04/11/2024 15:00 EDT Telemedicine [facility] Hematology & Oncology - [address] 259791 Alisson Carreon MD [address] [place] [address] 2 [place] [phone] 04/13/2024 13:30 EDT Appointment [facility] Hematology & Oncology - [address] 938291 04/13/2024 14:00 EDT Appointment [facility] Hematology & Oncology [address] 424191 04/16/2024 10:00 EST Telemedicine [facility] - [facility] Palliative Care Services [address] [place] [address] Chichi Woods MD [address] [place] [address] [phone] 04/24/2024 9:00 EST Appointment [facility] Radiology CT Outpatient - [address] [id number] 04/24/2024 11:00 EST Appointment [facility] Breast Imaging - [address] 366341 04/27/2024 12:00 EST Appointment [facility] Hematology & Oncology - [address] [phone] 05/02/2024 15:00 EST Telemedicine [facility] Hematology & Oncology [address] 763491 Alisson Carreon MD [address] [place] [address], [facility] 2 [place] [phone] 05/04/2024 10:15 EST Ancillary Procedure [facility] Cardiology - [address] [place] [address] 05/04/2024 11:30 EST Appointment [facility] Hematology & Oncology [address] 756251 05/04/2024 12:00 EST Appointment [facility] Hematology & Oncology [address] 768291 06/12/2024 13:00 EST Appointment [facility] Radiology CT - [address] 095891 documented as of this encounter Visit Diagnoses Not on filedocumented in this encounter Care Teams Crocodile Farmer Relationship Specialty Start Date End Date Linda Blancas MD [facility] [address] [place] [address] PCP - General 01/06/11 documented as of this encounter
--- OUTSIDE RECORDS SUMMARY | 2024-03-20 15:08 | XMS_ITS | Encounter Summary ---
Author Organization [facility] Address [address] [place] [address] Care Team Providers Care Web Marketing Analyst Name Role Phone Linda Blancas MD Primary Care Provider [phone] Encounter Details Date Type Department Care Team (Late st Contact Info) Description 12/15/2016 Results Only Imaging [facility] OBGYN Services - [address] [address] Quita Babb PA-C 111 [facility], Level 2 [place] [address] Social History Tobacco Use Types [...] visiting a doctor's office or shopping? No 11/17/2016 Cognitive Status Response Date of Assessm ent Because of a physical, menta l, or emotional condition, does this person have serious difficulty concentrating, remembering, or making decisions? No 11/17/2016 documented as of this encounter Plan of Treatment Upcoming Encounters Date Type Department Care Team (Late st Contact Info) Description 04/02/2024 10:30 EDT Appointment [facility] Interventional Radiology Unit [address] [place] [address] [phone] 04/02/2024 15:15 EDT Office Visit [facility] Surgical Oncology - [address] [phone] Adolfo Carreno MD [address] [place] [address] [phone] 04/05/2024 9:30 EDT Telemedicine [facility] Palliative Care Services [address] [place] [address] [phone] Chichi Woods MD [address] [place] [address] [phone] 04/11/2024 15:00 EDT Telemedicine [facility] Hematology & Oncology - [address] [phone] Alisson Carreon MD [address] [place] [address] [phone] 04/13/2024 13:30 EDT Appointment [facility] Hematology & Oncology [address] 236171 04/13/2024 14:00 EDT Appointment [facility] Hematology & Oncology [address] [phone] 04/16/2024 10:00 EST Telemedicine [facility] Palliative Care Services [address] [place] [address] [phone] Chichi Woods MD [address] [place] [address] [phone] 04/24/2024 9:00 EST Appointment [facility] Radiology CT Outpatient - [address] [address] 04/24/2024 11:00 EST Appointment [facility] Breast Imaging - [facility] [address] [place] [address] 04/27/2024 12:00 EST Appointment [facility] Hematology & Oncology - [address] [address] 05/02/2024 15:00 EST Telemedicine [facility] Hematology & Oncology [address] [phone] Alisson Carreon MD [address] [place] [address], Level 2 [place] [phone] 05/04/2024 10:15 EST Ancillary Procedure [facility] Cardiology - [address] [place] [address] 05/04/2024 11:30 EST Appointment [facility] Hematology & Oncology [address] [address] 05/04/2024 12:00 EST Appointment [facility] Hematology & Oncology [address] [address] 06/12/2024 13:00 EST Appointment [facility] Radiology CT - [address] [phone] documented as of this encounter Procedures Procedure Name Priority Date/Time Associated Diagnosis Comments MA 2D/3D UNILATERAL LEFT ONLY ROUTINE ESTEVAN SCREENING MAMMO 12/15/2016 11:06 EDT documented in this encounter Results * MA 2D/3D UNILATERAL LEFT ONLY ROUTINE ESTEVAN SCREENING MAMMO (12/15/2016 11:06 EDT) Anatomical Region Laterality Modality Other 12/15/2016 11:0 6 EDT 12/15/2016 17:13 EDT Narrative 12/15/2016 17:13 EDT Comparison has been made to previous images. Left Breast Findings: (Full breast 2D and implant displaced 3D Tomosynthesis with synthesized 2D views with CAD) There are scattered fibroglandular densities (25% - 50% fibroglandular). A normal-appearing sub-pectoral, saline implant is present. There are no other significant abnormalities. IMPRESSION: LEFT BREAST: A normal-appearing sub-pectoral, saline implant. Benign, no evidence of malignancy. Normal interval follow-up is recommended in 12 months. OVERALL ASSESSMENT - CATEGORY 2 - BENIGN END OF IMPRESSION These results will be communicated to your patient via a lay letter from Radiology. If any additional imaging is needed we will contact your patient directly. Procedure Note Pamella Mora MD - 12/15/2016 Comparison has been made to previous images. Left Breast Findings: (Full breast 2D and implant displaced 3D Tomosynthesis with synthesized 2D views with CAD) There are scattered fibroglandular densities (25% - 50% fibroglandular). A normal-appearing sub-pectoral, saline implant is present. There are no other significant abnormalities. IMPRESSION: LEFT BREAST: A normal-appearing sub-pectoral, saline implant. Benign, no evidence of malignancy. [...] filedocumented in this encounter Care Teams Web Marketing Analyst Relationship Specialty Start Date End Date Linda Blancas MD [facility] [address] [place] [address] PCP - General 01/06/11 documented as of this encounter
--- OUTSIDE RECORDS SUMMARY | 2024-03-20 15:08 | XMS_ITS | Encounter Summary ---
Author Organization [facility] Address [address] [place] [address] Care Team Providers Care Putty Remover Name Role Phone Linda Blancas MD Primary Care Provider [phone] Encounter Details Date Type Department Care Team (Latest Contact Info) Description 12/30/2016 14:11 EDT - 12/30/2016 23:59 EDT Hospital Encounter [facility] [address] [place] [address] Augustina Colin MD PhD Discharge Disposition: Auto [...] No 11/17/2016 documented as of this encounter Discharge Diagnoses Diagnosis R51 Headache-R51[ICD-10-CM] C50.919 Malignant neoplasm of unspecified site of [...] history of malignant neoplasm of breast,Breast lump Take 1 Tab by mouth daily. 90 Tab 11/05/2016 01/20/2017 omeprazole (PRILOSEC) 20 mg capsule Take 1 Capsule by mouth daily. 03/28/2023 ondansetron (ZOFRAN-ODT) 8 mg disintegrating tabletIndications:Metasta tic breast cancer,Chemotherapy induced nausea and vomiting Take 1 Tab by mouth every 8 hours as needed for Nausea. 30 Tab 2 11/24/2016 03/16/2017 palbociclib (IBRANCE) 125 mg capsuleIndications:Malign ant neoplasm of female breast, unspecified laterality, unspecified site of breast Take 125 mg by mouth daily. 21 Cap 1 11/05/2016 01/11/2017 venlafaxine (EFFEXOR-XR) 150 mg XR capsule Take [...] EDT Appointment [facility] Interventional Radiology Unit [address] [place] [address] [phone] 04/02/2024 15:15 EDT Office Visit [facility] Surgical Oncology - [address] 510491 Adolfo Carreno MD [address] [place] [address] [phone] 04/05/2024 9:30 EDT Telemedicine [facility] [address] [place] [address] [phone] Chichi Woods MD [address] [place] [address] [phone] 04/11/2024 15:00 EDT Telemedicine [facility] Hematology & Oncology [address] [phone] Alisson Carreon MD [address] [place] [address] [phone] 04/13/2024 13:30 EDT Appointment [facility] Hematology & Oncology [address] [phone] 04/13/2024 14:00 EDT Appointment [facility] Hematology & Oncology [address] [phone] 04/16/2024 10:00 EST Telemedicine [facility] [address] [place] [address] [phone] Chichi Woods MD [address] [place] [address], [address] [phone] 04/24/2024 9:00 EST Appointment [facility] Radiology CT Outpatient - [address] [phone] 04/24/2024 11:00 EST Appointment [facility] Breast Imaging - [address] 169511 04/27/2024 12:00 EST Appointment [facility] Hematology & Oncology [address] [phone] 05/02/2024 15:00 EST Telemedicine [facility] Hematology & Oncology [address] [phone] Alisson Carreon MD [address] [place] [address], Level 2 [place] [phone] 05/04/2024 10:15 EST Ancillary Procedure [facility] Cardiology - [place] [address] 05/04/2024 11:30 EST Appointment [facility] Hematology & Oncology - [address] [phone] 05/04/2024 12:00 EST Appointment [facility] Hematology & Oncology [address] [phone] 06/12/2024 13:00 EST Appointment [facility] Radiology CT - [address] [phone] documented as of this encounter Visit Diagnoses Not on filedocumented in this encounter Care Teams Putty Remover Relationship Specialty Start Date End Date Linda Blancas MD [facility] [address] [place] [address] PCP - General 01/06/11 documented as of this encounter
--- OUTSIDE RECORDS SUMMARY | 2024-03-20 15:08 | XMS_ITS | Encounter Summary ---
Author Organization [facility] Address [address] [place] [address] Care Team Providers Care Senior Mobile Developer Name Role Phone Linda Blancas MD Primary Care Provider [phone] Reason for Visit * Reason Onset Date Comments Social Work 01/26/2017 Disability Encounter Details Date Type Department Care Team (Late st Contact Info) Description 01/26/2017 Telephone [facility] Hematology & Oncology - [facility] [address] [place] [address] Quita Calvin MSW Social Work (Disability) Social History Tobacco Use Types Packs/Day Years [...] Miscellaneous Notes * Telephone Encounter - Quita Calvin MSW - 01/26/2017 1631 EDT SOCIAL WORK PHONE ENCOUNTER Presenting Issue: Disability Pt called this screenplay writer to further discuss her options for disability. This has been an ongoing dialogue for pt who is struggling with decisions to stop working and file for disability. She does have paperwork for her STD through [facility] that will need to be completed. She had a lengthy discussion with her employee HR Dept who is advising her to file for STD. She also has [employer] to carry her through until she turns 66. She did mentioned that through the long-term disability policy, she would need to file for SSDI. Further explained that [employer] policies will often advise you to file for SSDI and even hire a third green party to do the disability claim filing for you. She understands that it is to their best interest to get claimants approved for SSDI b/c it means less disability benefit paid out by them. Again, advised her to schedule a [id number] interview with her local ([place] office to see if she is even entitled to SSDI benefits - as she has only worked 17 months in the last 5 years. Also suggested that if she is not entitled to benefits on her SS#, then she should ask whether she could be entitled under her 's SS#. Plan: Pt will emailed this screenplay writer the disability application from [facility] with the Physician Statement form that needs to be completed by Dr. Colin. Ongoing support to pt as needed in addressing her disability questions and navigating the claims process. ABEL Barahona documented in this encounter Plan of Treatment Upcoming Encounters Date Type Department Care Team (Late st Contact Info) Description 04/02/2024 10:30 EDT Appointment [facility] Interventional Radiology Unit [address] [place] [address] [phone] 04/02/2024 15:15 EDT Office Visit [facility] Surgical Oncology - [address] [phone] Adolfo Carreno MD 111 [facility], Level [address] [place] [phone] 04/05/2024 9:30 EDT Telemedicine [facility] Palliative Care Services [address] [place] [place] [address] Chichi Woods MD [address] [place] [address] [phone] 04/11/2024 15:00 EDT Telemedicine [facility] Hematology & Oncology - [address] [phone] Alisson Carreon MD [address] [place] [address] 2 [place] [phone] 04/13/2024 13:30 EDT Appointment [facility] Hematology & Oncology - [address] [address] 04/13/2024 14:00 EDT Appointment [facility] Hematology & Oncology - [address] [address] 04/16/2024 10:00 EST Telemedicine [facility] Palliative Care Services [address] [place] [place] [address] [phone] Chichi Woods MD [address] [place] [address] [phone] 04/24/2024 9:00 EST Appointment [facility] Radiology CT Outpatient - [address] [id number] 04/24/2024 11:00 EST Appointment [facility] Breast Imaging - [address] [address] 04/27/2024 12:00 EST Appointment [facility] Hematology & Oncology - [address] [phone] 05/02/2024 15:00 EST Telemedicine [facility] Hematology & Oncology [address] [phone] Alisson Carreon MD [address] [place] [address], Level [address] [place] [phone] 05/04/2024 10:15 EST Ancillary Procedure [facility] Cardiology - [address] [place] [address] 05/04/2024 11:30 EST Appointment [facility] Hematology & Oncology [address] 985151 05/04/2024 12:00 EST Appointment [facility] Hematology & Oncology [address] 540321 06/12/2024 13:00 EST Appointment [facility] Radiology CT - [address] [phone] documented as of this encounter Visit Diagnoses Not on filedocumented in this encounter Care Teams Senior Mobile Developer Relationship Specialty Start Date End Date Linda Blancas MD [address] [place] [address] 30 [place] [address] PCP - General 01/06/11 documented as of this encounter
--- OUTSIDE RECORDS SUMMARY | 2024-03-20 15:08 | XMS_ITS | Encounter Summary ---
Author Organization [facility] Address [address] [place] [address] Care Team Providers Care Informatics Spec Name Role Phone Linad Blancas MD Primary Care Provider [phone] Reason for Visit * Reason Onset Date Comments Labs Only 12/22/2016 Encounter Details Date Type Department Care Team (Late st Contact Info) Description 12/22/2016 Telephone [facility] Center Hematology & Oncology - [facility] [address] [place] [address] Quita Rob, RN Labs Only Social History [...] No 11/17/2016 documented as of this encounter Miscellaneous Notes * Telephone Encounter - Quita Rob RN - 12/22/2016 1212 EDT Called and notified Ms Pleitez to notify her labs were reviewed with Dr Colin and pt can continue ibrance therapy. Pt requested a letter be emailed to her at [email or web address] for FMLA. documented in this encounter Plan of Treatment Upcoming Encounters Date Type Department Care Team (Late st Contact Info) Description 04/02/2024 10:30 EDT Appointment [facility] Interventional Radiology Unit [address] [place] [address] [phone] 04/02/2024 15:15 EDT Office Visit [facility] Surgical Oncology - [address] [phone] Adolfo Carreno MD [address] [place] [address] [phone] 04/05/2024 9:[address] [facility] Palliative Care Services [address] [place] [address] [phone] Chichi Woods MD [address] [place] [address] [phone] 04/11/2024 15:00 EDT Telemedicine [facility] Hematology & Oncology [address] 780281 Alisson Carreon MD [address] [place] [address] [phone] 04/13/2024 13:30 EDT Appointment [facility] Hematology & Oncology [address] [phone] 04/13/2024 14:00 EDT Appointment [facility] Hematology & Oncology [address] 835391 04/16/2024 10:00 EST Telemedicine [facility] - [facility] Palliative Care Services [address] [place] [address] [phone] Chichi Woods MD [address] [place] [address], [address] [phone] 04/24/2024 9:00 EST Appointment [facility] Radiology CT Outpatient - [address] [phone] 04/24/2024 11:00 EST Appointment [facility] Breast Imaging - [address] [phone] 04/27/2024 12:00 EST Appointment [facility] Hematology & Oncology - [address] [phone] 05/02/2024 15:00 EST Telemedicine [facility] Hematology & Oncology - [address] [phone] Alisson Carreon MD [address] [place] [address], Level 2 [place] [phone] 05/04/2024 10:15 EST Ancillary Procedure [facility] Cardiology - [place] [place] [address] 05/04/2024 11:30 EST Appointment [facility] Hematology & Oncology - [address] [phone] 05/04/2024 12:00 EST Appointment [facility] Hematology & Oncology [address] [phone] 06/12/2024 13:00 EST Appointment [facility] Radiology CT - [address] [phone] documented as of this encounter Visit Diagnoses Not on filedocumented in this encounter Care Teams Informatics Spec Relationship Specialty Start Date End Date Linda Blancas MD [address] [place] [address] PCP - General 01/06/11 documented as of this encounter
--- OUTSIDE RECORDS SUMMARY | 2024-03-20 15:08 | XMS_ITS | Encounter Summary ---
Author Organization [facility] Address [address] [place] [address] Care Team Providers Care Public Health Educator Name Role Phone Linda Blancas MD Primary Care Provider [phone] Reason for Referral * Radiology Services (Routine) - Closed Specialty Diagnoses / Procedures Referred By Contac t Referred To Contact Diagnoses Metastatic breast cancer Procedures MR HEAD W/WO CONTRAST Augustina Colin MD PhD Referral ID Status Reason Start Date Expiration Date Visits Re quested Visits Authorized [id number] Closed 12/15/2016 1 1 Reason for Visit * Reason Comments Follow-up Encounter Details Date Type Department Care Team (Late st Contact Info) Description 12/15/2016 15:15 EDT Office Visit [facility] Hematology & Oncology - Main [place] [address] [place] [address] Augustina Colin MD PhD Metastatic breast cancer [...] Sign Reading Time Taken Comments Blood Pressure 126/84 12/15/2016 1516 EDT Pulse 106 12/15/2016 1516 EDT Temperature 36.9 ??C (98.4 ??F) 12/15/2016 1516 EDT Respiratory Rate 18 12/15/2016 1516 EDT Oxygen Saturation 99% 12/15/2016 1516 EDT Inhaled Oxygen Concentration - - Weight 67.3 kg (148 lb 6.4 oz) 12/15/2016 1516 E DT Height 156.7 cm (5' 1.69) 12/15/2016 1516 EDT Body Mass Index 27.41 12/15/2016 1516 EDT documented in this encounter Functional Status [...] of unspecified site of unspecified female breast-C50.919[ICD-10-CM] C79.9 Secondary malignant neoplasm of unspecified site-C79.9[ICD-10-CM] documented in this encounter Discharge Disposition Disposition Code Departure Means Destination Auto Discharge documented in this encounter Progress Notes * Augustina Colin MD - 12/15/2016 1515 EDT REASON FOR OFFICE VISIT: Evaluation of side effects while receiving letrozole and palbociclib PROBLEM LIST: 1. 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 a. Ultrasound performed in [place] identifying an irregular heterogeneous soft tissue mass measuring 1.2 x 1.2 x 1.5 cm. ?? b. ??Two punch biopsies near the site of the skin changes the right breast perfomed by Dr Carreno 10/21/2016; ??Pathology identified an invasive ductal type carcinoma involving the epidermis and dermis of the skin, nuclear grade 2, which was ER positive 80%, IL positive 20%. ??HER-2 1+ by IHC. ??ISHrevealed a HER-2 to chromosome 17 ratio of 1.3 and was nonamplified. ?? c. Staging scans: CT scan of the chest identified numerous scattered bilateral nodules throughout the lungs, the largest measuring 4 mm. ??The soft tissue mass was identified near the right breast implant; Enlarged mediastinal lymph nodes. ??A CT scan of the abdomen and nuclear bone scan were without evidence of malignancy. d. Biopsy of mediastinal lymph node consistent with adenocarcinoma, breast origin 2. 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 ??This DCIS was nuclear grade 2, per report 2.7 cm in greatest dimension a. right total mastectomy and implant reconstruction. ??She had augmentation done with the left breast. ??A positive margin was present. ??No additional surgery could be offered because of the location of the margin b. Declined radiation and tamoxifen. 3. 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 4. Gynecologic history: postmenopausal, having had premature ovarian failure at age 38. ??She is . ??She has a paternal aunt who had breast cancer in her 30s. ??Hormone replacement therapy for about 5 years after the premature ovarian failure and discontinued it at the time of DCIS diagnosis. 5. Bone Density - 12/13/16 normal bone density of spine and near osteopenia hips 6. Other chronic health issues: gastroesophageal reflux disease. SUBJECTIVE: Ms Pleitez presents clinic today discuss side effects after starting letrozole and palbociclib. She is been on letrozole the longest. She was concerned that we would worsen her already significant hot flashes. She really has not noticed much difference in the hot flashes. So far theletrozole has not been associated with joint aches and discomfort or vaginal dryness. The palbociclib is associated with some worsening fatigue. Changes in bowel movements with diarrhea alternating with pretty significant constipation requiring a laxative. She also noticed a loss of her voice slowly over the last 3 weeks. Is now improving a little bit during her week off. She also developed mouthsores with palbociclib. She has been noticing headaches when she wakes up in the morning. If she isback down for about 30 minutes a headaches weight. She had severe headaches before her diagnosis ofmetastatic cancer but the intensity is worse now. ROS: A 10 point review of systems was obtained. Other than described in the subjective she notes loss of appetite but stable weight, mild cough, rectal discomfort, bruising, mild anxiety, episode of lightheadedness at that time that she was having diarrhea. Medications Prior to Today's Visit Medication Sig [...] needed. ??? letrozole (FEMARA) 2.5 mg tablet Take 1 Tab by mouth daily. ??? MULTIVITS W-CA,FE,OTHER MIN (WOMEN'S DAILY FORMULA [...] wine per week Presents to the clinic with her today. She lives in [place]. She continues to work full-time. She also spends time in [place] with her family Objective: BP 126/84 Pulse (!) 106 Temp 36.9 ??C (98.4 ??F) (Tympanic) Resp 18 Ht 156.7 cm (61.69) Wt 67.3 kg (148 lb 6.4 oz) SpO2 99% BMI 27.41 kg/m2 Estimated body mass index is 27.41 kg/(m^2) as calculated from the following: Height as of this encounter: 156.7 cm (61.69). Weight as of this encounter: 67.3 kg (148 lb 6.4 oz). ECOG Performance Status: 0 General: Comfortable, cooperative and in no apparent distress HEENT: Pupils are equal, round, reactive to light; Extraocular muscles are intact; [place]ucosa is moist; no mucosal lesions are identified LYMPH: No cervical, supraclavicular lymphadenopathy LUNGS: Clear to auscultation bilaterally, resonant to percussion CARDIOVASCULAR: Regular, rate and rhythm; No murmurs, rubs or gallops BREAST: Firm mass at the site of biopsy of the recurrence. This measures approximately 1-1/2 cm ABDOMEN: Soft, non-tender, non distended, no hepatosplenomegaly appreciated EXTREMITIES: No clubbing, cyansis or edema; No calf tenderness NEURO: Alert and oriented x 3; Grossly neurologically intact DIAGNOSTIC DATA Phlebotomy Only on 12/15/2016 Component Date Value Ref Range Status ??? Potassium 12/15/2016 4.2 3.5 - 5.0 mEq/L Final ??? Sodium 12/15/2016 142 136 - 145 mEq/L Final ??? Chloride 12/15/2016 105 96 - 110 mEq/L Final ??? CO2 12/15/2016 28 22 - 32 mEq/L Final ??? Total Alkaline Phosphatase 12/15/2016 107 38 - 126 U/L Final ? ? Bilirubin, Total 12/15/2016 <0.5 <1.4 mg/dl Final ??? AST 12/15/2016 31 15 - 46 U/L Final ? ? ALT 12/15/2016 43 <53 U/L Final ??? Albumin 12/15/2016 4.1 3.4 - 4.9 g/dl Final ??? Total Protein 12/15/2016 7.2 6.3 - 8.2 g/dl Final ??? Creatinine 12/15/2016 0.85 0.52 - 1.04 mg/dl Final ? ? GFR, Calculated 12/15/2016 77 >60 ml/min/1.73m2 Final Comment: eGFR calculated using CKD-EPI equation for non Americans. Multiply eGFR by 1.16 for Americans. ??? BUN 12/15/2016 19 10 - 26 mg/dl Final ??? Calcium 12/15/2016 9.6 8.5 - 10.5 mg/dl Final ??? Calculated Calcium 12/15/2016 9.5 8.5 - 10.5 mg/dl Final ??? Glucose, Serum 12/15/2016 103* 70 - 100 mg/dl Final ??? Magnesium 12/15/2016 2.1 1.7 - 2.8 mg/dl Final ??? WBC 12/15/2016 3.73* 4.0 - 12.4 K/cmm Final ??? RBC 12/15/2016 3.65* 3.86 - 5.04 M/cmm Final ??? Hemoglobin 12/15/2016 12.3 11.6 - 15.2 gm/dl Final ??? HCT 12/15/2016 34.6* 34.9 - 44.4 % Final ??? MCV 12/15/2016 95 81 - 98 fl Final ??? MCH 12/15/2016 33.7* 26.7 - 33.3 pg Final ??? MCHC 12/15/2016 35.5 32.1 - 35.9 gm/dl Final ? ? RDW-CV 12/15/2016 12.7 <14.7 % Final ? ? RDW-SD 12/15/2016 41.0 <50.4 fl Final ??? PLT 12/15/2016 215 141 - 377 K/cmm Final ??? MPV 12/15/2016 9.8 9.5 - 12.7 fl Final ??? Neutrophils 12/15/2016 34.0 % Final ??? Lymphocytes 12/15/2016 59.0 % Final ??? Monocytes 12/15/2016 4.0 % Final ??? Eosinophils 12/15/2016 2.0 % Final ??? Basophils 12/15/2016 1.0 % Final ??? ABS Neutrophils 12/15/2016 1.27* 2.20 - 8.85 K/cmm Final ??? ABS Lymphs 12/15/2016 2.20 1.09 - 3.30 K/cmm Final ??? ABS Monocytes 12/15/2016 0.15 0.1 - 0.8 K/cmm Final ??? ABS Eosinophils 12/15/2016 0.07 0.03 - 0.61 K/cmm Final ??? ABS Basophils 12/15/2016 0.04 0.01 - 0.11 K/cmm Final ??? Type of Diff: 12/15/2016 Manual Final ASSESSMENT: Ms Bernstein is a 56-year-old female with metastatic breast cancer with metastatic disease in the mediastinal lymph node. Metastatic disease was identified in the setting of a biopsy-proven skin recurrence. She had ductal carcinoma in situ in 2003. ??She had a positive margin but declined XRT and antiestrogen therapy. The skin recurence was ER+ 80%, IL+ 20%, HER2 negative. Her volume of metastatic disease is small. Her tumor marker is essentially normal. She completed 1 month ofletrozole and palbociclib. Given that she will likely be on letrozole for quite some time and has no bone disease for which we would provide zoledronic acid. We did get a bone density scan. She has normal spine and near osteopenia of the hips. She tolerated the palbociclib though I suspect that thevoice changes she is experiencing could be a manifestation of peripheral neuropathy. For now we will continue the current dose of palbocilcib and continue letrozole. Because of the headaches we will p roceed with a brain MRI. PLAN: 1. Continue letrozole 2.5 mg daily and palbociclib 125mg daily for 21 out of 28 days. Palbociclib will be started next Mon 2. Check CBC and differential every week and adjust palbociclib doses as needed. 3. Head MRI 4. Would repeat scans to assess response to therapy in 3-4 months 5. Follow-up return in one month ?? Patient is encouraged call with any intercurrent concerns or problems. ?? Augustina Colin MD 12/15/2016 15:45 documented in this encounter Plan of Treatment Upcoming Encounters Date Type Department Care Team (Late st Contact Info) Description 04/02/2024 10:30 EDT Appointment [facility] Interventional Radiology Unit [address] [place] [address] [id number] 04/02/2024 15:15 EDT Office Visit [facility] Surgical Oncology - [address] [id number] Adolfo Carreno MD [address] [place] [address] [phone] 04/05/2024 9:30 EDT Telemedicine [facility] Palliative Care Services [address] [place] [address] [id number] Chichi Woods MD [address] [place] [address] [phone] 04/11/2024 15:00 EDT Telemedicine [facility] Hematology & Oncology - [address] [id number] Alisson Carreon MD [address] [place] [address] [phone] 04/13/2024 13:30 EDT Appointment [facility] Hematology & Oncology - [address] [id number] 04/13/2024 14:00 EDT Appointment [facility] Hematology & Oncology [address] [id number] 04/16/2024 10:00 EST Telemedicine [facility] Palliative Care Services [address] [place] [address] [id number] Chichi Woods MD [address] [place] [address] [phone] 04/24/2024 9:00 EST Appointment [facility] Radiology CT Outpatient - [address] [id number] 04/24/2024 11:00 EST Appointment [facility] Breast Imaging - [facility] [address] [place] [address] [place], [place] [id number] 04/27/2024 12:00 EST Appointment [facility] Hematology & Oncology - [address] [id number] 05/02/2024 15:00 EST Telemedicine [facility] Hematology & Oncology [address] [phone] Alisson Carreon MD [address] [place] [address], [address] [place] [phone] 05/04/2024 10:15 EST Ancillary Procedure [facility] Cardiology [place] [address] [place] [address] 05/04/2024 11:30 EST Appointment [facility] Hematology & Oncology - [address] [id number] 05/04/2024 12:00 EST Appointment [facility] Hematology & Oncology - [address] [id number] 06/12/2024 13:00 EST Appointment [facility] Radiology CT - [address] [phone] documented as of this encounter Procedures Procedure Name Priority Date/Time Associated Diagnosis Comments MR HEAD W/WO CONTRAST Routine 12/30/2016 15:16 EDT Metastatic breast cancer (CMS-HCC) (HCC-CMS) documented in this encounter Results * MR HEAD W/WO CONTRAST (12/30/2016 15:16 EDT) Anatomical Region Laterality Modality Other 12/30/2016 15:1 6 EDT 12/31/2016 11:32 EDT Narrative 12/31/2016 11:32 EDT MR HEAD W/WO CONTRAST ??12/30/2016 3:16 PM SIGNS AND SYMPTOMS/COMMENTS: ??C50.919-Malignant neoplasm of unspecified site of unspecified female [id number] C79.9-Secondary malignant neoplasm of unspecified site-ICD-10; Pt w/ metastatic breast cancer new headaches. . COMPARISON: ??MRI head-12/10/2004 TECHNIQUE: MRI of the brain was performed without and with intravenous contrast. Multiplanar, multisequence images were obtained. FINDINGS: Brain parenchyma demonstrates normal signal intensity. No concerning lesions are seen to suggest intracranial metastatic disease. There is no acute hemorrhage or midline shift. No evidence of recent infarction. No hydrocephalus. Flow voids and intravascular enhancement are normal where appropriate. The cerebellar tonsils are prominent within the foramen magnum. The paranasal sinuses and mastoid air cells are predominantly clear. Bone marrow signal is normal. Following contrast administration, there is no abnormal brain parenchymal or leptomeningeal enhancement. IMPRESSION: No intracranial metastatic disease or other significant abnormality. I have personally reviewed the images and the above interpretation and agree with the findings. Procedure Note Fortino Kebede DO - 12/31/2016 MR HEAD W/WO CONTRAST 12/30/2016 3:16 PM SIGNS AND SYMPTOMS/COMMENTS: C50.919-Malignant neoplasm of unspecified site of unspecified female [id number]-RWG-[id number] C79.9-Secondary malignant neoplasm of unspecified site-ICD-10; Pt w/ metastatic breast cancer new headaches. . COMPARISON: MRI head-12/10/2004 TECHNIQUE: MRI of the brain was performed without and with intravenous contrast. Multiplanar, multisequence images were obtained. FINDINGS: Brain parenchyma demonstrates normal signal intensity. No concerning lesions are seen to suggest intracranial metastatic disease. There is no acute hemorrhage or midline shift. No evidence of recent infarction. No hydrocephalus. Flow voids and intravascular enhancement are normal where appropriate. The cerebellar tonsils are prominent within the foramen magnum. The paranasal sinuses and mastoid air cells are predominantly clear. Bone marrow signal is normal. Following contrast administration, there is no abnormal brain parenchymal or leptomeningeal enhancement. IMPRESSION: No intracranial metastatic disease or other significant abnormality. I have personally reviewed the images and the above interpretation and agree with the findings. Augustina Colin MD PhD IMG MRI ORDERABLES * (ABNORMAL) HEMAGRAM AND DIFFERENTIAL (12/15/2016 14:23 EDT) WBC 3.73(L) 4.0 - 12.4 K/cmm 12/15/2016 14:52 [facility] RBC 3.65(L) 3.86 - 5.04 M/cmm 12/15/2016 14:52 [facility] Hemoglobin 12.3 11.6 - 15.2 gm/dl 12/15/2016 14:52 [facility] HCT 34.6(L) 34.9 - 44.4 % 12/15/2016 14:52 [facility] MCV 95 81 - 98 fl 12/15/2016 14:52 [facility] MCH 33.7(H) 26.7 - 33.3 pg 12/15/2016 14:52 [facility] MCHC 35.5 32.1 - 35.9 gm/dl 12/15/2016 14:52 [facility] RDW-CV 12.7 <14.7 % 12/15/2016 14:52 [facility] RDW-SD 41.0 <50.4 fl 12/15/2016 14:52 [facility] PLT 215 141 - 377 K/cmm 12/15/2016 14:52 [facility] MPV 9.8 9.5 - 12.7 fl 12/15/2016 14:52 [facility] Neutrophils 34.0 % 12/15/2016 15:22 [facility] Lymphocytes 59.0 % 12/15/2016 15:22 [facility] Monocytes 4.0 % 12/15/2016 15:22 [facility] Eosinophils 2.0 % 12/15/2016 15:22 [facility] Basophils 1.0 % 12/15/2016 15:22 [facility] ABS Neutrophils 1.27(L) 2.20 - 8.85 K/cm 12/15/2016 15:22 [facility] ABS Lymphs 2.20 1.09 - 3.30 K/[facility] 12/15/2016 15:22 [facility] ABS Monocytes 0.15 0.1 - 0.8 K/[facility] 12/15/2016 15:22 [facility] ABS Eosinophils 0.07 0.03 - 0.61 K/[facility] 12/15/2016 15:22 [facility] ABS Basophils 0.04 0.01 - 0.11 K/[facility] 12/15/2016 15:22 [facility] Type of Diff: Manual 12/15/2016 15:22 [facility] Blood specimen (specimen) BLOOD SPECIMEN / Unknown 12/15/2016 14:23 EDT 12/15/2016 14:41 EDT Augustina Colin MD PhD PACKAGES & DNA PROBE ORDERABLES [facility] [address] [place] [address] * (ABNORMAL) COMPREHENSIVE METABOLIC PANEL (ONCOLOGY USE ONLY-INC MG: DRAW GREEN TOP) (12/15/2016 14:23 EDT) Potassium 4.2 3.5 - 5.0 mEq/L 12/15/2016 15:09 [facility] Sodium 142 136 - 145 mEq/L 12/15/2016 15:09 [facility] Chloride 105 96 - 110 mEq/L 12/15/2016 15:09 [facility] CO2 28 22 - 32 mEq/L 12/15/2016 15:09 [facility] Total Alkaline Phosphatase 107 38 - 126 U/L 12/15/2016 15:09 [facility] Bilirubin, Total <0.5 <1.4 mg/dl 12/16/19 17 15:09 [facility] AST 31 15 - 46 U/L 12/15/2016 15:09 [facility] ALT 43 <53 U/L 12/15/2016 15:09 [facility] Albumin 4.1 3.4 - 4.9 g/dl 12/15/2016 15:09 [facility] Total Protein 7.2 6.3 - 8.2 g/dl 12/15/2016 15:09 [facility] Creatinine 0.85 0.52 - 1.04 mg/dl 12/15/2016 15:09 [facility] GFR, Calculated 77 >60 ml/min/1.7 3m2 12/15/2016 15:09 [facility] Comment: eGFR calculated using CKD-EPI equation for non Americans. Multiply eGFR by 1.16 for Americans. BUN 19 10 - 26 mg/dl 12/15/2016 15:09 [facility] Calcium 9.6 8.5 - 10.5 mg/dl 12/15/2016 15:09 [facility] Calculated Calcium 9.5 8.5 - 10.5 mg/dl 12/15/2016 15:09 [facility] Glucose, Serum 103(H) 70 - 100 mg/dl 12/15/2016 15:09 [facility] Magnesium 2.1 1.7 - 2.8 mg/dl 12/15/2016 15:09 [facility] Blood specimen (specimen) BLOOD SPECIMEN / Unknown 12/15/2016 14:23 EDT 12/15/2016 14:41 EDT Augustina Colin MD PhD CHEMISTRY & BLOOD GA S ORDERABLES [facility] [address] [place] [address] documented in this encounter Visit Diagnoses Diagnosis Metastatic breast cancer- Primary documented in this encounter Care Teams Public Health Educator Relationship Specialty Start Date End Date Linda Blancas MD [facility] [address] [place], [place] [id number] PCP - General 01/06/11 documented as of this encounter
--- OUTSIDE RECORDS SUMMARY | 2024-03-20 15:08 | XMS_ITS | Encounter Summary ---
Author Organization [facility] Address [address] [place] [address] Care Team Providers Care Head Of Maintenance Name Role Phone Linda Blancas MD Primary Care Provider [phone] Reason for Visit * Reason Onset Date Comments Labs Only 12/30/2016 Encounter Details Date Type Department Care Team (Late st Contact Info) Description 12/30/2016 Telephone [facility] Hematology & Oncology - [facility] [address] [place] [address] Quita Rob, RN Labs Only Social History [...] Telephone Encounter - Quita Rob RN - 12/30/2016 0843 EDT Reviewed labs with Dr Colin. Called and notified Ms Maik that her labs are within parameters to continue palbociclib. Encouraged pt to call with any questions. documented in this encounter Plan of Treatment Upcoming Encounters Date Type Department Care Team (Late st Contact Info) Description 04/02/2024 10:30 EDT Appointment [facility] Interventional Radiology Unit [address] [place] [address] [phone] 04/02/2024 15:15 EDT Office Visit [facility] Surgical Oncology - [address] [phone] Adolfo Carreno MD [address] [place] [address] [phone] 04/05/2024 9:30 EDT Telemedicine [facility] - [facility] Palliative Care Services [address] [place] [address] [phone] Chichi Woods MD [address] [place] [address] [phone] 04/11/2024 15:00 EDT Telemedicine [facility] Hematology & Oncology [address] [phone] Alisson Carreon MD [address] [place] [address] [phone] 04/13/2024 13:30 EDT Appointment [facility] Hematology & Oncology [address] [id number] 04/13/2024 14:00 EDT Appointment [facility] Hematology & Oncology [address] [phone] 04/16/2024 10:00 EST Telemedicine [facility] - [facility] Palliative Care Services [address] [place] [address] [id number] Chichi Woods MD [address] [place] [address], [address] [place] [phone] 04/24/2024 9:00 EST Appointment [facility] Radiology CT Outpatient - [address] [id number] 04/24/2024 11:00 EST Appointment [facility] Breast Imaging - [facility] [address] [place], [place] [phone] 04/27/2024 12:00 EST Appointment [facility] Hematology & Oncology - [address] [id number] 05/02/2024 15:00 EST Telemedicine [facility] Hematology & Oncology - [address] [id number] Alisson Carreon MD [address] [place] [address], [facility], [address] [place] [phone] 05/04/2024 10:15 EST Ancillary Procedure [facility] Cardiology - [address] [place], [place] [phone] 05/04/2024 11:30 EST Appointment [facility] Hematology & Oncology - [address] [id number] 05/04/2024 12:00 EST Appointment [facility] Hematology & Oncology [address] [phone] 06/12/2024 13:00 EST Appointment [facility] Radiology CT - [address] [phone] documented as of this encounter Visit Diagnoses Not on filedocumented in this encounter Care Teams Head Of Maintenance Relationship Specialty Start Date End Date Linda Blancas MD [address] [place] [address] PCP - General 01/06/11 documented as of this encounter
--- OUTSIDE RECORDS SUMMARY | 2024-03-20 15:08 | XMS_ITS | Encounter Summary ---
Author Organization [facility] Address [address] [place] [address] Care Team Providers Care Canteen Attendant Name Role Phone Linda Blancas MD Primary Care Provider [phone] Reason for Referral * Prior Authorization (Routine/Next Available) - Authorized Specialty Diagnoses / Procedures Referred By [facility] t Referred To Contact Diagnoses Metastatic breast cancer Augustina Colin MD PhD Referral ID Status Reason Start Date Expiration Date V isits Requested Visits Authorized [id number] Authorized Other 01/14/2017 1 0 Question Answer Medication to be Prior Authorized: Ibrance [facility] Precertification Request for Medications 01/14/2017 URGENT: No Medication Administration: PO, Home Patient Name: Sunshine Pleitez Patient : [id number] Ordering MD: Dixie Nurse: Magalie truong Quita Phone: [phone] Is this a dosage change, renewal or a new medication? Renewal Medication Start Date & Number of Cycles: Current PA expires on 02/03, she will get a delivery today from [facility] PT BSA: There is no height or weight on file to calculate BSA. What is the reason for taking this medication? Metastatic breast cancer ?? Is this an on label usage of this medication? Yes ?? What is the patient's current drug regimen? n/a ?? Similar drugs patient has been on and failed? n/a ?? Please Prior Auth Medications Listed below: ibrance 125mg PO daily for 21 days on then 7 days off Dispense 21 tabs with 11 refills Pharmacy: [facility] Reason for Visit * Reason Onset Date Comments Pharmacy 01/14/2017 [facility] /Ibrance stat request Encounter Details Date Type Department Care Team (Late st Contact Info) Description 01/14/2017 Telephone [facility] Cancer [facility] Hematology & Oncology - [facility] [place] [address] [place] [address] Augustina Colni MD PhD Pharmacy ([facility] /Ibrance stat request ) Social History Tobacco Use Types Packs/Day [...] Miscellaneous Notes * Telephone Encounter - Karen Pope RN - 01/14/2017 1145 EDT A verbal order for Ibrance was given to MARCO A Haynes at [facility] since the script they received via faxwas not clear (the print). They will be contacting Ms Bernstein today for shipment so she will not have a deley in starting treatment on Wednesday 01/17. They did note that the current PA will on 02/03 so a new PA was sent. documented in this encounter Plan of Treatment Upcoming Encounters Date Type Department Care Team (Late st Contact Info) Description 04/02/2024 10:30 EDT Appointment [facility] Interventional Radiology Unit [address], [place] [phone] 04/02/2024 15:15 EDT Office Visit [facility] Surgical Oncology - [address] 343141 Adolfo Carreno MD [address] [place] [address] [phone] 04/05/2024 9:30 EDT Telemedicine [facility] Palliative Care Services [address] [place] [address] 109751 Chichi Woods MD [address] [place] [address] [phone] 04/11/2024 15:00 EDT Telemedicine [facility] Hematology & Oncology - [address] 162851 Alisson Carreon MD [address] [place] [address] [phone] 04/13/2024 13:30 EDT Appointment [facility] Hematology & Oncology [address] [phone] 04/13/2024 14:00 EDT Appointment [facility] Hematology & Oncology - [address] [phone] 04/16/2024 10:00 EST Telemedicine [facility] Palliative Care Services [address] [place] [address] [phone] Chichi Woods MD [address] [place] [address] [phone] 04/24/2024 9:00 EST Appointment [facility] Radiology CT Outpatient - [address] [id number] 04/24/2024 11:00 EST Appointment [facility] Breast Imaging - [facility] [address] [place] [address] [place] [address] 04/27/2024 12:00 EST Appointment [facility] Hematology & Oncology - [address] [address] 05/02/2024 15:00 EST Telemedicine [facility] Hematology & Oncology [address] [address] Alisson Carreon MD [address] [place] [address], Level 2 [place] [phone] 05/04/2024 10:15 EST Ancillary Procedure [facility] Cardiology [place] [address] [place] [address] 05/04/2024 11:30 EST Appointment [facility] Hematology & Oncology - [address] [address] 05/04/2024 12:00 EST Appointment [facility] Hematology & Oncology - [address] [address] 06/12/2024 13:00 EST Appointment [facility] Radiology CT - [address] 538291 Scheduled Referrals Name Type Priority Associated Diagnoses Order Schedule AMB MEDICATION PRIOR AUTHORIZATION Outpatient Referral Routine Metastatic breast cancer (CMS-HCC) (HCC-CMS) Ordered: 01/14/2017 documented as of this encounter Visit Diagnoses Diagnosis Metastatic breast cancer- Primary documented in this encounter Care Teams Canteen Attendant Relationship Specialty Start Date End Date Linda Blancas MD [facility] [address] [place] [address] PCP - General 01/06/11 documented as of this encounter
--- OUTSIDE RECORDS SUMMARY | 2024-03-20 15:08 | XMS_ITS | Encounter Summary ---
Author Organization [facility] Address [address] [place] [address] Care Team Providers Care Handstitching Machine Collar Feller Name Role Phone Linda Blancas MD Primary Care Provider [phone] Adolfo Carreno MD Unavailable [phone] Augustina Colin MD PhD Unavailable Unavailable Reason for Visit * Reason Onset Date Comments Follow-up 12/24/2016 Encounter Details Date Type Department Care Team (Late st Contact Info) Description 12/24/2016 Telephone [facility] Cancer Center Hematology & Oncology - [facility] [address] [place] [address] Doris Anthony RN [address] [place] [address] Follow-up Social History Tobacco Use Types Packs/Day [...] Telephone Encounter - Doris Anthony RN - 09/25/2019 1806 EDT . documented in this encounter Plan of Treatment Upcoming Encounters Date Type Department Care Team (Late st Contact Info) Description 04/02/2024 10:30 EDT Appointment [facility] Interventional Radiology Unit [address] [place] [address] [phone] 04/02/2024 15:15 EDT Office Visit [facility] Surgical Oncology - [address] 279191 Adolfo Carreno MD [address] [place] [address] [phone] 04/05/2024 9:30 EDT Telemedicine [facility] - [facility] Services [address] [place] [address] [phone] Chichi Woods MD [address] [place] [address] [phone] 04/11/2024 15:00 EDT Telemedicine [facility] Hematology & Oncology [address] [phone] Alisson Carreon MD [address] [place] [address] [phone] 04/13/2024 13:30 EDT Appointment [facility] Hematology & Oncology [address] 067441 04/13/2024 14:00 EDT Appointment [facility] Hematology & Oncology [address] 016741 04/16/2024 10:00 EST Telemedicine [facility] [address] [place] [address] [phone] Chichi Woods MD [address] [place] [address], [address] [phone] 04/24/2024 9:00 EST Appointment [facility] Radiology CT Outpatient - [address] [id number] 04/24/2024 11:00 EST Appointment [facility] Breast Imaging - [facility] S [place] 1 [place], [place] 921051 04/27/2024 12:00 EST Appointment [facility] Hematology & Oncology - [address] 822211 05/02/2024 15:00 EST Telemedicine [facility] Hematology & Oncology - [address] [address] Alisson Carreon MD [address] [place] [address], [facility], Level [address] [place] [phone] 05/04/2024 10:15 EST Ancillary Procedure [facility] Cardiology - [address] [place], [place] [phone] 05/04/2024 11:30 EST Appointment [facility] Hematology & Oncology - [address] [phone] 05/04/2024 12:00 EST Appointment [facility] Hematology & Oncology [address] [phone] 06/12/2024 13:00 EST Appointment [facility] Radiology CT - [address] [phone] documented as of this encounter Visit Diagnoses Not on filedocumented in this encounter Care Teams Handstitching Machine Collar Feller Relationship Specialty Start Date End Date Linda Blancas MD [facility] [address] [place] [address] PCP - General 01/06/11 Adolfo Carreno MD [address] [place] [address], [facility] [address] [place] [phone] General Surgery 04/26/19 Augustina Colin MD PhD [address] [place] [address], [facility] [address] [place] [phone] Medical Oncology 04/26/19 documented as of this encounter
--- OUTSIDE RECORDS SUMMARY | 2024-03-20 15:08 | XMS_ITS | Encounter Summary ---
Author Organization [facility] Address [address] [place] [address] Care Team Providers Care Supervisor Metal Hanging Name Role Phone Linda Blancas MD Primary Care Provider [phone] Reason for Visit * Reason Onset Date Comments Appointment Related 12/16/2016 MRI 12/18 Encounter Details Date Type Department Care Team (Late st Contact Info) Description 12/16/[address] [facility] Cancer Center Hematology & Oncology - [facility] [address] [place] [address] Augustina Colin MD PhD Appointment Related (MRI 12/18) Social History Tobacco Use Types Packs/Day Years [...] encounter Miscellaneous Notes * Telephone Encounter - Basilia Webb - 12/16/2016 1132 EDT Rescheduled apt for MRI on 12/30 at 145pm check in at registration, 230pm MRI. Patient aware * Telephone Encounter - Bari [place] - 12/16/2016 1107 EDT Reason for Call: Appointment Related (MRI 7/8) Summary/Symptoms: Mri 7/8, needs to reschedule as cannot due weekends. Mondays thru work best Bari Whitfield 12/16/2016 11:07 documented in this encounter Plan of Treatment Upcoming Encounters Date Type Department Care Team (Late st Contact Info) Description 04/02/2024 10:30 EDT Appointment [facility] Interventional Radiology Unit [address] [place] [address] 04/02/2024 15:15 EDT Office Visit [facility] Surgical Oncology - [address] 987171 Adolfo Carreno MD [address] [place] [address] 2 [place] [phone] 04/05/2024 9:30 EDT Telemedicine [facility] - [facility] Palliative Care Services [address] [place] [address] Chichi Woods MD [address] [place] [address], [address] [phone] 04/11/2024 15:00 EDT Telemedicine [facility] Hematology & Oncology - [address] [phone] Alisson Carreon MD [address] [place] [address], [facility] 2 [place] [phone] 04/13/2024 13:30 EDT Appointment [facility] Hematology & Oncology - [address] 667331 04/13/2024 14:00 EDT Appointment [facility] Hematology & Oncology [address] [address] 04/16/2024 10:00 EST Telemedicine [facility] - [facility] Palliative Care Services [address] [place] [address] 056001 Chichi Woods MD [address] [place] [address], [address] [phone] 04/24/2024 9:00 EST Appointment [facility] Radiology CT Outpatient - [address] [id number] 04/24/2024 11:00 EST Appointment [facility] Breast Imaging - [facility] S [address] 326841 04/27/2024 12:00 EST Appointment [facility] Hematology & Oncology - [address] 405781 05/02/2024 15:00 EST Telemedicine [facility] Hematology & Oncology [address] 546001 Alisson Carreon MD [address] [place] [address], Level [address] [place] [phone] 05/04/2024 10:15 EST Ancillary Procedure [facility] Cardiology [place] [place] [address] 05/04/2024 11:30 EST Appointment [facility] Hematology & Oncology - [address] 078991 05/04/2024 12:00 EST Appointment [facility] Hematology & Oncology - [address] [address] 06/12/2024 13:00 EST Appointment [facility] Center Radiology CT - [address] 865451 documented as of this encounter Visit Diagnoses Not on filedocumented in this encounter Care Teams Supervisor Metal Hanging Relationship Specialty Start Date End Date Linda Blancas MD [facility] [address] [place], [place] [address] PCP - General 01/06/11 documented as of this encounter
--- OUTSIDE RECORDS SUMMARY | 2024-03-20 15:08 | XMS_ITS | Encounter Summary ---
Author Organization [facility] Address [address] [place] [address] Care Team Providers Care Research Contracts Supervisor Name Role Phone Linda Blancas MD Primary Care Provider [phone] Reason for Visit * Reason Comments Gynecologic Exam Encounter Details Date Type Department Care Team (Late st Contact Info) Description 01/21/2017 10:[address] [facility] Gynecologic Oncology [address] 887891 Quita Babb PA-C [address] [facility], [facility] 2 [place] [phone] Encounter for gynecological examination with abnormal finding (Primary Dx) Social History Tobacco [...] Sign Reading Time Taken Comments Blood Pressure 100/60 01/21/2017 1124 EDT Pulse - - Temperature - - Respiratory Rate - - Oxygen Saturation - - Inhaled Oxygen Concentration - - Weight 67.6 kg (149 lb) 01/21/2017 1124 EDT Height 158 cm (5' 2.21) 01/21/2017 1124 EDT Body Mass Index 27.07 01/21/2017 1124 EDT documented in this encounter Functional Status [...] Progress Notes * Quita Babb PA - 01/21/2017 1000 EDT Images from the original note were not included. Subjective: Patient ID: Sunshine Pleitez is an 56 y.o. female. Chief Complaint Patient presents with ??? Gynecologic Exam HPI Sunshine Pleitez is a 56 y.o. female who presents today for a yearly exam, last seen one yearago for her annual exam. Most significantly, Sendy has been diagnosed with recurrent metastatic ductal breast carcinoma in October. 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 She had been in close surveillance with the breast cancer center, and as she was over 10 years out from her diagnosis was on yearly surveillance. In October, she noticed some changes in her right breast, which ultimately led to imaging mely biopsy that was consistent invasive ductal carcinoma, with disease on her right chest wall, as well as enlarged mediastinal lymph nodes and small lung nodules. She is currently receiving treatment with Dr. Colin, consisting of letrozole and palbociclib, tolerating this reasonably well with complaints of fatigue and easy bruisability. Prior to her breast cancer history, she [...] related to her hot flashes or menopausal symptoms. ? She also began having abnormal pap smears [...] well as 12/2014, NIL and negative HPV. History of STDs: yes, HSV II, on suppressive therapy with no outbreaks over the past year. Currently , monogamous relationship. She has no Specific gynecologic complaints today. Patient Active Problem List Diagnosis ??? Papanicolaou [...] ??? Breast lump ??? Metastatic breast cancer Past Medical History: Diagnosis Date ??? Allergy ??? Arthritis ??? Back pain ??? 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 [...] mg by mouth 2 times daily. ) 360 Cap 3 ??? gabapentin (NEURONTIN) 300 mg capsule Take 2 Caps by mouth at bedtime. (Patient taking differently: Take by mouth at bedtime. ) 180 Cap 3 ??? ibuprofen (MOTRIN) 200 mg tablet Take 200-400 mg by mouth as needed. ??? letrozole (FEMARA) 2.5 mg tablet TAKE 1 TABLET DAILY 90 Tab 3 ??? lidocaine (LIDOCAINE) 2 % solution 5 mL by mucous membrane route as needed for Pain. Apply to mouth sores as needed. 100 mL 1 ??? MULTIVITS W-CA,FE,OTHER MIN (WOMEN'S DAILY FORMULA ORAL) Take by mouth daily. ??? omeprazole (PRILOSEC) 20 mg capsule Take 20 mg by mouth daily. ??? ondansetron (ZOFRAN-ODT) 8 mg disintegrating tablet Take 1 Tab by mouth every 8 hours as neededfor Nausea. 30 Tab 2 ??? palbociclib (IBRANCE) 125 mg capsule Take 125 mg by mouth daily. 21 Cap 3 ??? RED YEAST RICE EXTRACT ORAL [...] Psychiatric/Behavioral: Negative. - See HPI Objective: BP 100/60 Ht 158 cm (62.21) Wt 67.6 kg (149 lb) BMI 27.07 kg/m2 Physical Exam Constitutional: She is oriented [...] She has no rales. Right breast exhibits mass. Right breast exhibits no inverted nipple, no nippledischarge, no skin change and no tenderness. Left breast exhibits no inverted nipple, no mass, no nipple discharge, no skin change and no tenderness. Breasts are symmetrical. There is no breast swelling. Breast bleeding is absent. Thickened lesion on her right breast, consistent with her sight of recurrence. Abdominal: Soft. Bowel sounds are normal. She exhibits no distension. There is no tenderness. Thereis no rebound. Genitourinary: Vagina normal and uterus normal. There is lesion on the right labia. There is no rash, tenderness or injury on the right labia. There is no rash, tenderness, lesion or injury on the left labia. No vaginal erythema, tenderness or bleeding. No signs of injury around the vagina. No vaginal discharge found. Right adnexum displays no mass, no tenderness and no fullness. Left adnexum displays no mass, no tenderness and no fullness. Cervix exhibits no motion tenderness, no discharge and no friability. Uterus is not deviated, not enlarged, not fixed and not tender. Genitourinary Comments: Pedunculated hyperpigmented lesion in the area as illustrated. See procedure note. Musculoskeletal: Normal range of motion. Lymphadenopathy: She has no cervical adenopathy. She has no axillary adenopathy. Neurological: She is alert and oriented to person, place, and time. Skin: Skin is warm and dry. No erythema. No pallor. Psychiatric: She has a normal mood and affect. Her behavior is normal. Judgment and thought contentnormal. Vulvar biopsy/removal of likely skin tag. Written consent obtained. Area cleansed x 3 with betadine. Small amount of 1% lidocaine instilled subcutanously. Grasped with forceps, excised with #15 blade. Small amount of bleeding, well controlled with silver nitrate and pressure. Pt tolerated well. 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 History of post meonpausal symptoms, doing well. Recurrent breast cancer Vulvar lesion Plan: There are no diagnoses linked to this encounter. Pap deferred as she has had multiple normal paps with neg HPV. Can repeat her pap smear in another 1-3 years. Vulvar biopsy as above, will follow and notify pt of results. Advised to be aware for signs of infection (erythema, warmth, pain, drainage). Ongoing follow up with medical oncology. Return to office in 1 year, sooner PRN. TANK Garcia documented in this encounter Plan of Treatment Upcoming Encounters Date Type Department Care Team (Late st Contact Info) Description 04/02/2024 10:[address] [facility] Interventional Radiology Unit [address] [place] [address] 04/02/2024 15:[address] [facility] Surgical Oncology - [address] [phone] Adolfo Crareno MD [address] [place] [address] [phone] 04/05/2024 9:30 EDT Telemedicine [facility] Palliative Care Services [address] [place] [address] Chichi Woods MD [address] [place] [address] [phone] 04/11/2024 15:00 EDT Telemedicine [facility] Hematology & Oncology - [address] [address] Alisson Carreon MD [address] [place] [address] [phone] 04/13/2024 13:30 EDT Appointment [facility] Hematology & Oncology - [address] [phone] 04/13/2024 14:00 EDT Appointment [facility] Hematology & Oncology - [address] [address] 04/16/2024 10:00 EST Telemedicine [facility] Palliative Care Services [address] [place] [address] [phone] Chichi Woods MD [address] [place] [address] [phone] 04/24/2024 9:00 EST Appointment [facility] Radiology CT Outpatient - [address] [phone] 04/24/2024 11:[address] [facility] Breast Imaging - [facility] S [place] [address] [place] [address] 04/27/2024 12:00 EST Appointment [facility] Hematology & Oncology - [address] [address] 05/02/2024 15:00 EST Telemedicine [facility]ology [facility] Oncology [address] [address] Alisson Carreon MD [address] [place] [address], Level 2 [place] [phone] 05/04/2024 10:[address] [facility] Cardiology - [place] [address] 05/04/2024 11:30 EST Appointment [facility] Hematology & Oncology - [address] [address] 05/04/2024 12:00 EST Appointment [facility] On[facility] [address] [phone] 06/12/2024 13:00 EST Appointment [facility] Radiology CT - [address] [phone] documented as of this encounter Visit Diagnoses Diagnosis Encounter for gynecological examination with abnormal finding- Primary Routine gynecological examination documented in this encounter Care Teams Research Contracts Supervisor Relationship Specialty Start Date End Date Linda Blancas MD [facility] [address] [place] [address] PCP - General 01/06/11 documented as of this encounter
--- OUTSIDE RECORDS SUMMARY | 2024-03-20 15:08 | XMS_ITS | Encounter Summary ---
Author Organization [facility] Address [address] [place] [address] Care Team Providers Care Chief Wheelage Clerk Name Role Phone Linda Blancas MD Primary Care Provider [phone] Reason for Visit * Reason Onset Date Comments Results 12/07/2016 Encounter Details Date Type Department Care Team (Late st Contact Info) Description 12/07/2016 Telephone [facility] Cancer Center Hematology & Oncology - [facility] [address] [place] [address] Augustina Colin MD PhD Results Social History [...] * Telephone Encounter - Bess Orellana - 12/07/2016 0951 EDT Lab results from [facility] from 12/06/2016 entered. documented in this encounter Plan of Treatment Upcoming Encounters Date Type Department Care Team (Late st Contact Info) Description 04/02/2024 10:30 EDT Appointment [facility] Interventional Radiology Unit [address] [place] [address] [phone] 04/02/2024 15:15 EDT Office Visit [facility] Surgical Oncology - [address] [phone] Adolfo Carreno MD [address] [place] [address] 2 [place] [phone] 04/05/2024 9:30 EDT Telemedicine [facility] Palliative Care Services [address] [place] [address] [phone] Chichi Woods MD [address] [place] [address] [phone] 04/11/2024 15:00 EDT Telemedicine [email or web address] Hematology & Oncology [address] [phone] Alisson Carreon MD [address] [place] [address] [phone] 04/13/2024 13:30 EDT Appointment [email or web address] Hematology & Oncology [address] [id number] 04/13/2024 14:00 EDT Appointment [email or web address] Hematology & Oncology [address] [phone] 04/16/2024 10:00 EST Telemedicine [facility] Palliative Care Services [address] [place] [address] [phone] Chichi Woods MD [address] [place] [address], [address] [phone] 04/24/2024 9:00 EST Appointment [facility] Radiology CT Outpatient - [address] [id number] 04/24/2024 11:00 EST Appointment [facility] Breast Imaging - [address] [id number] 04/27/2024 12:00 EST Appointment [email or web address] Hematology & Oncology [address] [phone] 05/02/2024 15:00 EST Telemedicine [facility] [[email or web address]] Hematology & Oncology [address] [phone] Alisson Carreon MD [address] [place] [address], [facility], Level 2 [place] [phone] 05/04/2024 10:15 EST Ancillary Procedure [facility] Cardiology [place] [place] [address] 05/04/2024 11:30 EST Appointment [email or web address] Hematology & Oncology [address] [id number] 05/04/2024 12:00 EST Appointment [email or web address] Hematology & Oncology - [address] [phone] 06/12/2024 13:00 EST Appointment [facility] Radiology CT - [address] [id number] documented as of this encounter Procedures Procedure Name Priority Date/Time Associated Diagnosis Comments COMPLETE BLOOD COUNT AND DIFFERENTIAL Routine 12/06/2016 COMPREHENSIVE METABOLIC PANEL (CMP) Routine 12/06/2016 documented in this encounter Results * (ABNORMAL) HEMAGRAM AND DIFFERENTIAL (12/06/2016) WBC, External 2.4(A) 4.5 - 11.0 [facility] RBC, External 3.88(A) 4.00 - 5.20 [facility] Hemoglobin, External 12.6 12.0 - 15.0 [facility] HCT, External 37.5 36.0 - 46.0 [facility] MCV, External 97 80 - 100 [facility] MCH, External 32.5 26.0 - 34.0 [facility] MCHC, External 33.6 31.0 - 37.0 [facility] PLT, External 161 150 - 350 [facility] RDW-CV, External 12.0 11.5 - 14.5 [facility] Neutrophils, External 54.1 31.0 - 76.0 [facility] Lymphocytes, External 37.3 24.0 - 44.0 [facility] Monocytes, External 5.3 2.0 - 11.0 [facility] Eosinophils, External 2.5 1.0 - 4.0 [facility] Basophils, External 0.4 0.0 - 2.0 [facility] ABS Neutrophils, External 1.32(A) 1.50 - 7.80 [facility] ABS Lymphs, External 0.91(A) 1.10 - 4.80 [facility] ABS Monocytes, External 0.13 [facility] ABS Eosinophils, External 0.06 [facility] ABS Basophils, External 0.01 [facility] Blood specimen (specimen) 12/06/2016 Historical Provider MD PACKAGES & DNA RI OBE ORDERABLES [facility] * (ABNORMAL) COMPREHENSIVE METABOLIC PANEL (CMP) (12/06/2016) GFR, Calculated, External >60 [facility] Glucose, Serum, External 74 74 - 106 [facility] Albumin, External 3.6 3.4 - 5.0 [facility] Total Alkaline Phosphatase, External 103 48 - 129 [facility] ALT, External 28 13 - 61 [facility] AST, External 24 15 - 37 [facility] BUN, External 20(A) 7 - 18 [facility] Calculated Calcium, External [facility] Calcium, External 8.8 8.5 - 10.1 [facility] Chloride, External 109(A) 98 - 107 [facility] CO2, External 28 21 - 32 [facility] Creatinine, External 0.9 0.6 - 1.3 [facility] Fasting?, External [facility] Potassium, External 3.8 3.5 - 5.1 [facility] Sodium, External 143 136 - 145 [facility] Total Protein, External 7.0 6.4 - 8.2 [facility] Bilirubin, Total, External 0.50 0.20 - 1.00 [facility] Blood specimen (specimen) 12/06/2016 Historical Provider CHEMISTRY & BLOOD GAS ORDERABLES [facility] documented in this encounter Visit Diagnoses Not on filedocumented in this encounter Care Teams Chief Wheelage Clerk Relationship Specialty Start Date End Date Linda Blancas MD [address] [place] [address] PCP - General 01/06/11 documented as of this encounter
--- OUTSIDE RECORDS SUMMARY | 2024-03-20 15:08 | XMS_ITS | Encounter Summary ---
Author Organization [facility] Address [address] [place] [address] Care Team Providers Care Printing Sales Representative Name Role Phone Linda Blancas MD Primary Care Provider [phone] Reason for Visit * Reason Onset Date Comments Discuss Test Results 12/07/2016 Encounter Details Date Type Department Care Team (Late st Contact Info) Description 12/07/2016 Telephone [facility] Cancer Center Hematology & Oncology - [facility] [address] [place] [address] Augustina Colin MD PhD Discuss Test Results Social History Tobacco Use Types Packs/Day [...] encounter Miscellaneous Notes * Telephone Encounter - Ulysses Hart RN - 12/08/2016 0931 EDT Went over lab tests with Patient and reminded her that if she has a temp greater the 100.5f to callthe clinic, as her ANC is 1.32 Ulysses Hart, RN No dose adjustment needed, Dr Colin aware. Ulysses Hart, RN * Telephone Encounter - [facility] MarieRaffy - 12/07/2016 1333 EDT Reason for Call: Discuss Test Results Summary/Symptoms: Patient called for her lab results, in [facility] Jara Cynthia 12/07/2016 13:33 documented in this encounter Plan of Treatment Upcoming Encounters Date Type Department Care Team (Late st Contact Info) Description 04/02/2024 10:30 EDT Appointment [facility] Interventional Radiology Unit [address] [place] [address] [phone] 04/02/2024 15:15 EDT Office Visit [facility] Surgical Oncology - [address] [phone] Adolfo Carreno MD [address] [place] [address] [phone] 04/05/2024 9:30 EDT Telemedicine [facility] - [facility] Palliative Care Services [address] [place] [address] [phone] Chichi Woods MD [address] [place] [address] [phone] 04/11/2024 15:00 EDT Telemedicine [facility] Hematology & Oncology - [address] [phone] Alisson Carreon MD [address] [place] [address] 2 [place] [phone] 04/13/2024 13:30 EDT Appointment [facility] Hematology & Oncology - [address] [phone] 04/13/2024 14:00 EDT Appointment [facility] Hematology & Oncology - [address] [phone] 04/16/2024 10:00 EST Telemedicine [facility] - [facility] Palliative Care Services [address] [place] [address] [phone] Chichi Woods MD [address] [place] [address] [phone] 04/24/2024 9:00 EST Appointment [facility] Radiology CT Outpatient - [address] [address] 04/24/2024 11:00 EST Appointment [facility] Breast Imaging - [facility] [address] [place] [address] [place], [place] 545761 04/27/2024 12:00 EST Appointment [facility] Hematology & Oncology - [address] [phone] 05/02/2024 15:00 EST Telemedicine [facility] Hematology & Oncology - [address] [address] Alisson Carreon MD [address] [place] [address], Level [address] [place] [phone] 05/04/2024 10:15 EST Ancillary Procedure [facility] Cardiology - [place] [address] 05/04/2024 11:30 EST Appointment [facility] Hematology & Oncology - [address] [phone] 05/04/2024 12:00 EST Appointment [facility] Cancer Center Hematology & Oncology - [address] [phone] 06/12/2024 13:00 EST [facility] Rad[facility] - [address] [phone] documented as of this encounter Visit Diagnoses Not on filedocumented in this encounter Care Teams Printing Sales Representative Relationship Specialty Start Date End Date Linda Blancas MD [facility] [address] [place] [address] PCP - General 01/06/11 documented as of this encounter
--- OUTSIDE RECORDS SUMMARY | 2024-03-20 15:08 | XMS_ITS | Encounter Summary ---
Author Organization [facility] Address [address] [place] [address] Care Team Providers Care Slitter Scorer Name Role Phone Linda Blancas MD Primary Care Provider [phone] Encounter Details Date Type Department Care Team (Late st Contact Info) Description 02/04/[address] [facility] OBGYN Services - [address] [address] Quita Babb PA-C [address] [facility], Level [address] [place] [phone] Social History Tobacco Use Types [...] Progress Notes * Quita Babb PA - 02/04/2017 1328 EDT Outside pathology report received, vulvar biopsy, acrochordon (skin tag). Pt notified, no further follow up indicated. documented in this encounter Plan of Treatment Upcoming Encounters Date Type Department Care Team (Late st Contact Info) Description 04/02/2024 10:[address] [facility] Interventional Radiology Unit [address] [place] [address] [phone] 04/02/2024 15:[address] [facility] Surgical Oncology - [address] [phone] Adolfo Carreno MD [address] [place] [address] [phone] 04/05/2024 9:30 EDT Telemedicine [facility] - [facility] Palliative Care Services [address] [place] [address] [phone] Chichi Woods MD [address] [place] [address] [phone] 04/11/2024 15:00 EDT Telemedicine [facility] Hematology & Oncology [address] [phone] Alisson Carreon MD [address] [place] [address] [phone] 04/13/2024 13:30 EDT Appointment [facility] Hematology & Oncology [address] [phone] 04/13/2024 14:00 EDT Appointment [facility] Hematology & Oncology [address] [phone] 04/16/2024 10:00 EST Telemedicine [facility] - [facility] Palliative Care Services [address] [place] [address] [phone] Chichi Woods MD [address] [place] [address], [address] [phone] 04/24/2024 9:00 EST Appointment [facility] Radiology CT Outpatient - [address] [id number] 04/24/2024 11:[address] [facility] Breast Imaging - [facility] [address] [address] [place], [place] 563001 04/27/2024 12:00 EST Appointment [facility] Hematology & Oncology - [address] [phone] 05/02/2024 15:00 EST Telemedicine [facility] Hematology & Oncology - [address] [phone] Alisson Carreon MD [address] [place] [address], Level [address] [place] [phone] 05/04/2024 10:[address] [facility] Cardiology [place] [address] 05/04/2024 11:30 EST Appointment [facility] Hematology & Oncology - [address] [phone] 05/04/2024 12:00 EST Appointment [facility] Hematology & Oncology [address] [phone] 06/12/2024 13:00 EST Appointment [facility] Radiology CT - [address] [phone] documented as of this encounter Visit Diagnoses Not on filedocumented in this encounter Care Teams Slitter Scorer Relationship Specialty Start Date End Date Linda Blancas MD [address] [place] [address] PCP - General 01/06/11 documented as of this encounter
--- OUTSIDE RECORDS SUMMARY | 2024-03-20 15:08 | XMS_ITS | Encounter Summary ---
Author Organization [facility] Address [address] [place] [address] Care Team Providers Care Gaming Cashier Name Role Phone Linda Blancas MD Primary Care Provider [phone] Reason for Visit * Reason Onset Date Comments Results 01/06/2017 Encounter Details Date Type Department Care Team (Late st Contact Info) Description 01/06/2017 Telephone [facility] Cancer Center Hematology & Oncology - [facility] [address] [place] [address] Augustina Colin MD PhD Results Social History [...] * Telephone Encounter - Bess Orellana - 01/06/2017 4160 EDT Lab results from [facility] from 12/27/2016 entered. documented in this encounter Plan of Treatment Upcoming Encounters Date Type Department Care Team (Late st Contact Info) Description 04/02/2024 10:30 EDT Appointment [facility] Interventional Radiology Unit [address] [place] [address] [phone] 04/02/2024 15:15 EDT Office Visit [facility] Surgical Oncology - [address] [phone] Adolfo Carreno MD [address] [place] [address] 2 [place] [phone] 04/05/2024 9:30 EDT Telemedicine [facility] Palliative Care Services [address] [place] [address] 950011 Chichi Woods MD [address] [place] [address] [phone] 04/11/2024 15:00 EDT Telemedicine [facility] Hematology & Oncology [address] 449291 Alisson Carreon MD [address] [place] [address] [phone] 04/13/2024 13:30 EDT Appointment [facility] Hematology & Oncology [address] [phone] 04/13/2024 14:00 EDT Appointment [facility] Hematology & Oncology [address] [phone] 04/16/2024 10:00 EST Telemedicine [facility] Palliative Care Services [address] [place] [address] [phone] Chichi Woods MD [address] [place] [address], [address] [phone] 04/24/2024 9:00 EST Appointment [facility] Radiology CT Outpatient - [address] [id number] 04/24/2024 11:00 EST Appointment [facility] Breast Imaging - [address] [phone] 04/27/2024 12:00 EST Appointment [facility] Hematology & Oncology - [address] [phone] 05/02/2024 15:00 EST Telemedicine [facility] Hematology & Oncology [address] 899081 Alisson Carreon MD [address] [place] [address], [facility] Level [address] [place] [phone] 05/04/2024 10:15 EST Ancillary Procedure [facility] Cardiology [place] [address] 05/04/2024 11:30 EST Appointment [facility] Hematology & Oncology [address] 908471 05/04/2024 12:00 EST Appointment [facility] Hematology & Oncology - [address] [phone] 06/12/2024 13:00 EST Appointment [facility] Radiology CT - [address] [phone] documented as of this encounter Procedures Procedure Name Priority Date/Time Associated Diagnosis Comments COMPLETE BLOOD COUNT AND DIFFERENTIAL Routine 12/27/2016 COMPREHENSIVE METABOLIC PANEL (CMP) Routine 12/27/2016 documented in this encounter Results * COMPREHENSIVE METABOLIC PANEL (CMP) (12/27/2016) GFR, Calculated, External >60 [facility] Glucose, Serum, External 86 74 - 106 [facility] Albumin, External 3.8 3.4 - 5.0 [facility] Total Alkaline Phosphatase, External 110 48 - 129 [facility] ALT, External 22 13 - 61 [facility] AST, External 18 15 - 37 [facility] BUN, External 18 7 - 18 [facility] Calculated Calcium, External [facility] Calcium, External 9.3 8.5 - 10.1 [facility] Chloride, External 104 98 - 107 [facility] CO2, External 32 21 - 32 [facility] Creatinine, External 1.0 0.6 - 1.3 [facility] Fasting?, External [facility] Potassium, External 4.4 3.5 - 5.1 [facility] Sodium, External 140 136 - 145 [facility] Total Protein, External 7.4 6.4 - 8.2 [facility] Bilirubin, Total, External 0.47 0.20 - 1.00 [facility] Blood specimen (specimen) 12/27/2016 Historical Provider CHEMISTRY & BLOOD GAS ORDERABLES [facility] * (ABNORMAL) HEMAGRAM AND DIFFERENTIAL (12/27/2016) WBC, External 4.0(A) 4.5 - 11.0 [facility] RBC, External 3.73(A) 4.00 - 5.20 [facility] Hemoglobin, External 12.6 12.0 - 15.0 [facility] HCT, External 37.8 36.0 - 46.0 [facility] MCV, External 101(A) 80 - 100 [facility] MCH, External 33.8 26.0 - 34.0 [facility] MCHC, External 33.3 31.0 - 37.0 [facility] PLT, External 406(A) 150 - 350 [facility] RDW-CV, External 14.7(A) 11.5 - 14.5 [facility] Neutrophils, External 49.3 31.0 - 76.0 [facility] Lymphocytes, External 41.3 24.0 - 44.0 [facility] Monocytes, External 5.8 2.0 - 11.0 [facility] Eosinophils, External 1.5 1.0 - 4.0 [facility] Basophils, External 1.8 0.0 - 2.0 [facility] ABS Neutrophils, External 1.96 1.50 - 7.80 [facility] Lymphs, External 1.64 1.10 - 4.80 [facility] Monocytes, External 0.23 [facility] Eosinophils, External 0.06 [facility] Basophils, External 0.07 [facility] Blood specimen (specimen) 12/27/2016 Historical Provider PACKAGES & DNA LA OBE ORDERABLES [facility] documented in this encounter Visit Diagnoses Not on filedocumented in this encounter Care Teams Gaming Cashier Relationship Specialty Start Date End Date Linda Blancas MD [address] [place] [address] [address] [place] [address] PCP - General 01/06/11 documented as of this encounter
--- OUTSIDE RECORDS SUMMARY | 2024-03-20 15:08 | XMS_ITS | Encounter Summary ---
Author Organization [facility] Address [address] [place] [address] Care Team Providers Care Underwriting Assistant Name Role Phone Linda Blancas MD Primary Care Provider [phone] Reason for Visit * Reason Onset Date Comments Labs Only 01/11/2017 Encounter Details Date Type Department Care Team (Late st Contact Info) Description 01/11/2017 Telephone [facility] Hematology & Oncology - [facility] [address] [place] [address] Augustina Colin MD PhD Labs Only Social [...] Telephone Encounter - Quita Rob RN - 01/11/2017 1349 EDT Called and left message for Ms Pleitez to notify her she can either have labs done at her PCP the day prior to her visit with Dr Colin or she can have labs ted at [facility] OP lab 30-45 minutes priorto her appt. Pt made aware what ever location is most convenient for her is fine. Encouraged pt to call with questions. * Telephone Encounter - NoerandallElma velez - 01/11/2017 1143 EDT Reason for Call: Labs Only Summary/Symptoms: Pt wants to know if all labs can be done down there to save time spent in [place]. Please call. Elma Browning 01/11/2017 11:43 documented in this encounter Plan of Treatment Upcoming Encounters Date Type Department Care Team (Late st Contact Info) Description 04/02/2024 10:30 EDT Appointment [facility] Interventional Radiology Unit [address] [place] [address] [phone] 04/02/2024 15:15 EDT Office Visit [facility] Surgical Oncology - [address] 333461 Adolfo Carreno MD 111 [facility] [place], [facility] 2 [place] [phone] 04/05/2024 9:30 EDT Telemedicine [facility] - [facility] Palliative Care Services [address] [place], [place] [phone] Chichi Woods MD [address] [place] [address], [address] [phone] 04/11/2024 15:00 EDT Telemedicine [facility] Hematology & Oncology - [address] [phone] Alisson Carreon MD [address] [place] [address], Level [address] [place] [phone] 04/13/2024 13:30 EDT Appointment [facility] Hematology & Oncology - [address] [phone] 04/13/2024 14:00 EDT Appointment [facility] Hematology & Oncology - [address] [phone] 04/16/2024 10:00 EST Telemedicine [facility] - [facility] Palliative Care Services [address] [place] [address] [phone] Chichi Woods MD [address] [place] [address], [address] [phone] 04/24/2024 9:00 EST Appointment [facility] Radiology CT Outpatient - [address] [phone] 04/24/2024 11:00 EST Appointment [facility] Breast Imaging - [facility] [address] 154791 04/27/2024 12:00 EST Appointment [facility] Hematology & Oncology - [address] [phone] 05/02/2024 15:00 EST Telemedicine [facility] Hematology & Oncology - [address] 979491 Alisson Carreon MD [address] [place] [address], Level [address] [place] [phone] 05/04/2024 10:15 EST Ancillary Procedure [facility] Cardiology - [address] [place], [place] [phone] 05/04/2024 11:30 EST Appointment [facility] Hematology & Oncology - [address] [address] 05/04/2024 12:00 EST Appointment [facility] Hematology & Oncology - [address] [address] 06/12/2024 13:00 EST Appointment [facility] Radiology CT - [address] 097691 documented as of this encounter Results * (ABNORMAL) HEMAGRAM AND DIFFERENTIAL (05/02/2017 13:02 EST) WBC 3.88(L) 4.0 - 12.4 K/cmm 05/02/2017 13:23 [facility] RBC 3.34(L) 3.86 - 5.04 M/cmm 05/02/2017 13:23 [facility] Hemoglobin 12.7 11.6 - 15.2 gm/dl 05/02/2017 13:23 [facility] HCT 35.5 34.9 - 44.4 % 05/02/2017 13:23 [facility] MCV 106(H) 81 - 98 fl 05/02/2017 13:23 [facility] MCH 38.0(H) 26.7 - 33.3 pg 05/02/2017 13:23 [facility] MCHC 35.8 32.1 - 35.9 gm/dl 05/02/2017 13:23 [facility] RDW-CV 11.9 <14.7 % 05/02/2017 13:23 [facility] RDW-SD 46.1 <50.4 fl 05/02/2017 13:23 [facility] PLT 148 141 - 377 K/cmm 05/02/2017 13:23 [facility] MPV 9.9 9.5 - 12.7 fl 05/02/2017 13:23 [facility] % Neutrophils 38.9 % 05/02/2017 13:23 [facility] % Lymphocytes 51.5 % 05/02/2017 13:23 [facility] % Monocytes 7.5 % 05/02/2017 13:23 [facility] % Eosinophils 0.8 % 05/02/2017 13:23 [facility] % Basophils 1.0 % 05/02/2017 13:23 [facility] % Immature Grans 0.3 % 05/02/2017 13:23 [facility] ABS Neutrophils 1.51(L) 2.20 - 8.85 K/cmm 05/02/2017 13:23 [facility] ABS Lymphs 2.00 1.09 - 3.30 K/cmm 05/02/2017 13:23 [facility] ABS Monocytes 0.29 0.1 - 0.8 K/cmm 05/02/2017 13:23 [facility] ABS Eosinophils 0.03 0.03 - 0.61 K/cmm 05/02/2017 13:23 [facility] ABS Basophils 0.04 0.01 - 0.11 K/cmm 05/02/2017 13:23 [facility] ABS Immature Grans 0.01 0 - 0.06 K/cmm 05/02/2017 13:23 [facility] Type of Diff: Automated 05/02/2017 13:23 [facility] Blood specimen (specimen) BLOOD SPECIMEN / Unknown 05/02/2017 13:02 EST 05/02/2017 13:10 EST Augustina Colin MD PhD PACKAGES & DNA PROBE ORDERABLES Performing Organization Address City/State/[facility] Co de Phone Number [facility] [address] [place] [address] * COMPREHENSIVE METABOLIC PANEL (CMP) (05/02/2017 13:02 EST) Potassium 4.2 3.5 - 5.0 mEq/L 05/02/2017 13:52 [facility] Sodium 144 136 - 145 mEq/L 05/02/2017 13:52 [facility] Chloride 106 96 - 110 mEq/L 05/02/2017 13:52 [facility] CO2 27 22 - 32 mEq/L 05/02/2017 13:52 [facility] Total Alkaline Phosphatase 68 38 - 126 U/L 05/02/2017 13:52 [facility] Bilirubin, Total 0.6 <1.4 mg/dl 05/02/20 17 13:52 [facility] AST 21 15 - 46 U/L 05/02/2017 13:52 [facility] ALT 29 <53 U/L 05/02/2017 13:52 [facility] Albumin 4.1 3.4 - 4.9 g/dl 05/02/2017 13:52 [facility] Total Protein 6.7 6.3 - 8.2 g/dl 05/02/2017 13:52 [facility] Creatinine 0.81 0.52 - 1.04 mg/dl 05/02/2017 13:52 [facility] GFR, Calculated 82 >60 ml/min/1.7 3m2 05/02/2017 13:52 [facility] Comment: eGFR calculated using CKD-EPI equation for non Americans. Multiply eGFR by 1.16 for Americans. BUN 22 10 - 26 mg/dl 05/02/2017 13:52 [facility] Calcium 9.1 8.5 - 10.5 mg/dl 05/02/2017 13:52 [facility] Calculated Calcium 9.0 8.5 - 10.5 mg/dl 05/02/2017 13:52 [facility] Glucose, Serum 80 70 - 100 mg/dl 05/02/2017 13:52 [facility] Fasting? No 05/02/2017 13:03 [facility] Blood specimen (specimen) BLOOD SPECIMEN / Unknown 05/02/2017 13:02 EST 05/02/2017 13:10 EST Augustina Colin MD PhD CHEMISTRY & BLOOD GA S ORDERABLES [facility] [address] [place] [address] documented in this encounter Visit Diagnoses Diagnosis Metastatic breast cancer- Primary documented in this encounter Care Teams Underwriting Assistant Relationship Specialty Start Date End Date Linda Blancas MD [address] [place] [address] PCP - General 01/06/11 documented as of this encounter
--- OUTSIDE RECORDS SUMMARY | 2024-03-20 15:08 | XMS_ITS | Encounter Summary ---
Author Organization [facility] Address [address] [place] [address] Care Team Providers Care Commissioning Specialist Name Role Phone Linda Blancas MD Primary Care Provider [phone] Reason for Visit * Reason Comments Other Encounter Details Date Type Department Care Team (Late st Contact Info) Description 01/20/2017 Refill [facility] Center Hematology & Oncology - [facility] [address] [place], [place] [phone] Augustina Colin MD PhD Other Social History [...] TABLET DAILY 90 Tab 3 01/20/2017 01/15/2018 documented in this encounter Miscellaneous Notes * Telephone Encounter - Quita Rob RN - 01/20/2017 0737 EDT Renewal prescription for letrozole has been processed through [facility]. Per Dr Colin' last office note, Continue letrozole 2.5 mg daily and palbociclib 125mg daily for 21 out of 28 days. documented in this encounter Plan of Treatment Upcoming Encounters Date Type Department Care Team (Late st Contact Info) Description 04/02/2024 10:30 EDT Appointment [facility] Interventional Radiology Unit [address] [place] [address] [phone] 04/02/2024 15:15 EDT Office Visit [facility] Surgical Oncology - [address] [phone] Adolfo Carreno MD [address] [place] [phone] 04/05/2024 9:[address] [facility] - [facility] Palliative Care Services [address] [place] [address] [phone] Chichi Woods MD [address] [place] [phone] 04/11/2024 15:00 EDT Telemedicine [facility] Hematology & Oncology - [address] [phone] Alisson Carreon MD [address] [place] [address] [phone] 04/13/2024 13:30 EDT Appointment [facility] Hematology & Oncology - [address] [phone] 04/13/2024 14:00 EDT Appointment [facility] Hematology & Oncology - [address] [address] 04/16/2024 10:[address] [facility] - [facility] Palliative Care Services [address] [place] [address] [phone] Chichi Woods MD [address] [place] [address], [address] [phone] 04/24/2024 9:00 EST Appointment [facility] Radiology CT Outpatient - [address] 485951 04/24/2024 11:00 EST Appointment [facility] Breast Imaging - [address] 624261 04/27/2024 12:00 EST Appointment [facility] Hematology & Oncology - [address] 146701 05/02/2024 15:00 EST Telemedicine [facility] Hematology & Oncology [address] 490201 Alisson Carreon MD [address] [place] [address], Level [address] [place] [phone] 05/04/2024 10:15 EST Ancillary Procedure [facility] Cardiology - [place] [address] [place] [address] 05/04/2024 11:30 EST Appointment [facility] Hematology & Oncology [address] [address] 05/04/2024 12:00 EST Appointment [facility] Hematology & Oncology - [address] [phone] 06/12/2024 13:00 [facility] Radiology CT - [address] [address] documented as of this encounter Visit Diagnoses Diagnosis Personal history of malignant neoplasm of breast Breast lump Lump or mass in breast documented in this encounter Discontinued Medications Medication Sig Discontinue Reason Start Date End Da te letrozole (FEMARA) 2.5 mg tabletIndications:Persona l history of malignant neoplasm of breast,Breast lump Take 1 Tab by mouth daily. Reorder 11/05/2016 01/20/2017 documented as of this encounter Care Teams Commissioning Specialist Relationship Specialty Start Date End Date Linda Blancas MD [facility] [address] [place] [address] PCP - General 01/06/11 documented as of this encounter
--- OUTSIDE RECORDS SUMMARY | 2024-03-20 15:08 | XMS_ITS | Encounter Summary ---
Author Organization [facility] Address [address] [place] [address] Care Team Providers Care Cooker Sulfate Name Role Phone Linda Blancas MD Primary Care Provider [phone] Reason for Visit * Reason Onset Date Comments Medications Refill 01/11/2017 Encounter Details Date Type Department Care Team (Late st Contact Info) Description 01/11/2017 Refill [facility] Center Hematology & Oncology - [facility] [address] [place] [address] Augustina Colin MD PhD Medications Refill Social History Tobacco Use [...] No 11/17/2016 documented as of this encounter Ordered Prescriptions Prescription Sig Dispensed Refills Start Date End Da te palbociclib (IBRANCE) 125 mg capsuleIndications:Maligna nt neoplasm of female breast, unspecified laterality, unspecified site of breast,Metastatic breast cancer Take 125 mg by mouth daily. 21 Cap 3 01/12/2017 03/16/2017 documented in this encounter Miscellaneous Notes * Telephone Encounter - Quita Rob RN - 01/12/2017 0713 EDT Renewal prescription for palbociclib has been printed and will be faxed to [facility]. Per Dr Colin' last office note, Continue letrozole 2.5 mg daily and palbociclib 125mg daily for 21 out of28 days. Palbociclib will be started next Mon. * Telephone Encounter - Elma Browning - 01/11/2017 1139 EDT Medication(s) Requested: Palbociclib Pharmacy: [facility] Last Refill Date: 11-05-16 Last Visit Date: 12-15-16 Next Visit Date: 01/13/2017 Is patient out of medication? yes Elma Browning 01/11/2017 11:39 ' documented in this encounter Plan of Treatment Upcoming Encounters Date Type Department Care Team (Late st Contact Info) Description 04/02/2024 10:30 EDT Appointment [facility] Interventional Radiology Unit [address] [place], [place] [phone] 04/02/2024 15:15 EDT Office Visit [facility] Surgical Oncology - [facility] [address] [place], [place] [phone] Adolfo Carreno MD 111 [facility], Level [address] [place] [phone] 04/05/2024 9:30 EDT Telemedicine [facility] - [facility] Palliative Care Services [address] [place], [place] [phone] Chichi Woods MD [address] [place] [address] [address] [place] [phone] 04/11/2024 15:00 EDT Telemedicine [facility] Hematology & Oncology - [address] [phone] Alisson Carreon MD [address] [place] [address] 2 [place] [phone] 04/13/2024 13:30 EDT Appointment [facility] Hematology & Oncology - [address] [phone] 04/13/2024 14:00 EDT Appointment [facility] Hematology & Oncology [address] [phone] 04/16/2024 10:00 EST Telemedicine [facility] - [facility] Palliative Care Services [address] [place] [address] [phone] Chichi Woods MD [address] [place] [address] [phone] 04/24/2024 9:00 EST Appointment [facility] Radiology CT Outpatient - [address] [id number] 04/24/2024 11:00 EST Appointment [facility] Breast Imaging - [address] 104441 04/27/2024 12:00 EST Appointment [facility] Hematology & Oncology - [address] [phone] 05/02/2024 15:00 EST Telemedicine [facility] Hematology & Oncology - [address] [phone] Alisson Carreon MD [address] [place] [address] 2 [place] [phone] 05/04/2024 10:15 EST Ancillary Procedure [facility] Cardiology - [address] [place] [address] 05/04/2024 11:30 EST Appointment [facility] Hematology & Oncology - [address] [phone] 05/04/2024 12:00 EST Appointment [facility] Hematology & Oncology - [address] [phone] 06/12/2024 13:00 EST Appointment [facility] Radiology CT - [address] [address] documented as of this encounter Visit Diagnoses Diagnosis Metastatic breast cancer- Primary Malignant neoplasm of female breast, unspecified laterality, unspecified site of breast documented in this encounter Discontinued Medications Medication Sig Discontinue Reason Start Date End Da te palbociclib (IBRANCE) 125 mg capsuleIndications:Malign ant neoplasm of female breast, unspecified laterality, unspecified site of breast Take 125 mg by mouth daily. Reorder 11/05/2016 01/11/2017 documented as of this encounter Care Teams Cooker Sulfate Relationship Specialty Start Date End Date Linda Blancas MD [facility] [address] [place] [address] PCP - General 01/06/11 documented as of this encounter
--- OUTSIDE RECORDS SUMMARY | 2024-03-20 15:08 | XMS_ITS | Encounter Summary ---
Author Organization [facility] Address [address] [place] [address] Care Team Providers Care Tool Keeper Name Role Phone Linda Blancas MD Primary Care Provider [phone] Encounter Details Date Type Department Care Team (Late st Contact Info) Description 12/13/[address] [facility] [address] [place] [address] Augustina Colin MD PhD Social History Tobacco [...] [facility] Interventional Radiology Unit [address] [place] [address] 04/02/2024 15:15 EDT Office Visit [facility] Surgical Oncology - [address] 864461 Adolfo Carreno MD [address] [place] [address] [phone] 04/05/2024 9:30 EDT Telemedicine [facility] Palliative Care Services [address] [place] [phone] Chichi Woods MD [address] [place] [address] [phone] 04/11/2024 15:00 EDT Telemedicine [facility] Hematology & Oncology - [address] [address] Alisson Carreon MD [address] [place] [address] [phone] 04/13/2024 13:30 EDT Appointment [facility] Hematology & Oncology - [address] [phone] 04/13/2024 14:00 EDT Appointment [facility] Hematology & Oncology - [address] [address] 04/16/2024 10:00 EST Telemedicine [facility] Palliative Care Services [address] [place] [address] [phone] Chichi Woods MD [address] [place] [address] [phone] 04/24/2024 9:00 EST Appointment [facility] Radiology CT Outpatient - [address] [phone] 04/24/2024 11:00 EST Appointment [facility] Breast Imaging - [facility] [address] [place], [place] 491721 04/27/2024 12:00 EST Appointment [facility] Hematology & Oncology - [address] [address] 05/02/2024 15:00 EST Telemedicine [facility] Hematology & Oncology [address] [address] Alisson Carreon MD [address] [place] [address], Level [address] [place] [phone] 05/04/2024 10:15 EST Ancillary Procedure [facility] Cardiology - [place] [address] 05/04/2024 11:30 EST Appointment [facility] Hematology & Oncology [address] [address] 05/04/2024 12:00 EST Appointment [facility] Hematology & Oncology [address] 985341 06/12/2024 13:00 EST Appointment [facility] Radiology CT - [address] [phone] documented as of this encounter Visit Diagnoses Not on filedocumented in this encounter Care Teams Tool Keeper Relationship Specialty Start Date End Date Linda Blancas MD [facility] [address] [place] [address] PCP - General 01/06/11 documented as of this encounter
--- OUTSIDE RECORDS SUMMARY | 2024-03-20 15:08 | XMS_ITS | Encounter Summary ---
Author Organization [facility] Address [address] [place] [address] Care Team Providers Care Home Connect Lpn Name Role Phone Linda Blancas MD Primary Care Provider [phone] Reason for Visit * Reason Onset Date Comments Medication Problem 12/09/2016 Ibrance Returning Call 12/09/2016 Encounter Details Date Type Department Care Team (Late st Contact Info) Description 12/09/2016 Telephone [facility] Hematology & Oncology - [address] [address] Augustina Colin MD PhD Medication Problem (Ibrance); Returning Call Social History Tobacco Use Types [...] encounter Miscellaneous Notes * Telephone Encounter - Rosalie Gaxiola RN - 12/09/2016 1353 EDT Called and spoke with Sunshine who states this morning she had a normal bowel movement after she has been going back and forth between diarrhea and formed stool and she noted that there was blood in the toilet and on the toilet paper but no noticeable external hemorrhoids. Advised that she could have some irritation in her rectum from the diarrhea and the formed stool could have caused a little trauma which could have caused the bleeding. Advised for Sunshine to continue to stay well hydrated, avoid straining, can use OTC ointments or creams for rectum. Patient's PLT are ok at 161. Advised that if the bleeding continues or worsens to give the clinic a call back but to continue to monitor. * Telephone Encounter - Leigh Holman - 12/09/2016 1339 EDT Pt calling rosalie back, should be available other than a 2pm dexa scan * Telephone Encounter - Rosalie Gaxiola, RN - 12/09/2016 1323 EDT Called and LM for Sunshine asking her to give the clinic a call back. * Telephone Encounter - Bari Whitfield - 12/09/2016 1314 EDT Reason for Call: Medication Problem (Ibrance) Summary/Symptoms: Patient is on day 18 of 21 day Ibrance regiment. Today 12/09 Am bowel movement lots of red blood? Bari Whitfield 12/09/2016 13:14 documented in this encounter Plan of Treatment Upcoming Encounters Date Type Department Care Team (Late st Contact Info) Description 04/02/2024 10:30 EDT Appointment [facility] Interventional Radiology Unit [address] [place] [phone] 04/02/2024 15:15 EDT Office Visit [facility] Surgical Oncology - [address] [phone] Adolfo Carreno MD [address] [place] [address] [phone] 04/05/2024 9:30 EDT Telemedicine [facility] Palliative Care Services [address] [place] [address] [phone] Chichi Woods MD [address] [place] [address] [phone] 04/11/2024 15:00 EDT Telemedicine [facility] Hematology & Oncology - [address] [phone] Alisson Carreon MD [address] [place] [address] [phone] 04/13/2024 13:30 EDT Appointment [facility] Hematology & Oncology [address] [phone] 04/13/2024 14:00 EDT Appointment [facility] Hematology & Oncology [address] [address] 04/16/2024 10:00 EST Telemedicine [facility] Palliative Care Services [address] [place] [address] [phone] Chichi Woods MD [address] [place] [address] [phone] 04/24/2024 9:00 EST Appointment [facility] Radiology CT Outpatient - [address] [phone] 04/24/2024 11:00 EST Appointment [facility] Breast Imaging - [facility] [address] [place] [address] 04/27/2024 12:00 EST Appointment [facility] Hematology & Oncology - [address] [address] 05/02/2024 15:00 EST Telemedicine [facility] Hematology & Oncology [address] [phone] Alisson Carreon MD [address] [place] [address], Level [address] [place] [phone] 05/04/2024 10:15 EST Ancillary Procedure [facility] Cardiology - [place] [address] 05/04/2024 11:30 EST Appointment [facility] Hematology & Oncology [address] [address] 05/04/2024 12:00 EST Appointment [facility] Hematology & Oncology [address] [phone] 06/12/2024 13:00 EST Appointment [facility] Radiology CT - [address] [phone] documented as of this encounter Visit Diagnoses Not on filedocumented in this encounter Care Teams Home Connect Lpn Relationship Specialty Start Date End Date Linda Blancas MD [facility] [address] [place] [address] PCP - General 01/06/11 documented as of this encounter
--- OUTSIDE RECORDS SUMMARY | 2024-03-20 15:08 | XMS_ITS | Encounter Summary ---
Author Organization [facility] Address [address] [place] [address] Care Team Providers Care Work Force Advisor Name Role Phone Linda Blancas MD Primary Care Provider [phone] Encounter Details Date Type Department Care Team (Late st Contact Info) Description 12/15/2016 10:41 EDT - 12/15/2016 23:59 EDT Hospital Encounter [address] [address] Quita Babb PA-C [address] [facility], [facility] [address] [place] [phone] Discharge Disposition: Auto Discharge Social History Tobacco [...] Contact Info) Description 04/02/2024 10:30 EDT Appointment [facility] Interventional Radiology Unit [address] [place] [address] [phone] 04/02/2024 15:15 EDT Office Visit [facility] Surgical Oncology - [address] [phone] Adolfo Carreno MD [address] [place] [address] 2 [place] [phone] 04/05/2024 9:30 EDT Telemedicine [facility] - [facility] Palliative Care Services [address] [place] [address] [phone] Chichi Woods MD [address] [place] [address] [phone] 04/11/2024 15:00 EDT Telemedicine [facility] Hematology & Oncology - [address] 527221 Alisson Carreon MD [address] [place] [address] [phone] 04/13/2024 13:30 EDT Appointment [facility] Hematology & Oncology [address] [phone] 04/13/2024 14:00 EDT Appointment [facility] Hematology & Oncology - [address] [phone] 04/16/2024 10:00 EST Telemedicine [facility] - [facility] Palliative Care Services [address] [place] [address] [phone] Chichi Woods MD 111 [facility], [address] [phone] 04/24/2024 9:00 EST Appointment [facility] Radiology CT Outpatient - [address] 019201 04/24/2024 11:00 EST Appointment [facility] Breast Imaging - [address] [phone] 04/27/2024 12:00 EST Appointment [facility] Hematology & Oncology - [address] 715241 05/02/2024 15:00 EST Telemedicine [facility] Hematology & Oncology - [address] [phone] Alisson Carreon MD [address] [place] [address], Level [address] [place] [phone] 05/04/2024 10:15 EST Ancillary Procedure [facility] Cardiology - [place] [address] 05/04/2024 11:30 EST Appointment [facility] Hematology & Oncology - [address] [address] 05/04/2024 12:00 EST Appointment [facility] Hematology & Oncology - [address] [address] 06/12/2024 13:00 EST Appointment [facility] Radiology CT - [address] [address] documented as of this encounter Visit Diagnoses Not on filedocumented in this encounter Care Teams Work Force Advisor Relationship Specialty Start Date End Date Linda Blancas MD [address] [place] [address] [address] [place] [address] PCP - General 01/06/11 documented as of this encounter
--- OUTSIDE RECORDS SUMMARY | 2024-03-20 15:08 | XMS_ITS | Encounter Summary ---
Author Organization [facility] Address [address] [place] [address] Care Team Providers Care Used Car Make Ready Worker Name Role Phone Linda Blancas MD Primary Care Provider [phone] Encounter Details Date Type Department Care Team (Late st Contact Info) Description 12/15/2016 Phlebotomy Only [facility] [address] [place] [address] [employer] Operator, Outpatient Metastatic breast cancer (CMS-HCC) (HCC-CMS) [...] Appointment [facility] Interventional Radiology Unit [address] [place] [address] 04/02/2024 15:15 EDT Office Visit [facility] Surgical Oncology - [address] [phone] Adolfo Carreno MD [address] [place] [address] [phone] 04/05/2024 9:30 EDT Telemedicine [facility] Palliative Care Services [address] [place] [address] [phone] Chichi Woods MD [address] [place] [address] [phone] 04/11/2024 15:00 EDT Telemedicine [facility] Hematology & Oncology - [address] [phone] Alisson Carreon MD [address] [place] [address] [phone] 04/13/2024 13:30 EDT Appointment [facility] Hematology & Oncology - [address] [phone] 04/13/2024 14:00 EDT Appointment [facility] Hematology & Oncology - [address] [address] 04/16/2024 10:00 EST Telemedicine [facility] Palliative Care Services [address] [place] [address] [phone] Chichi Woods MD [address] [place] [address] [phone] 04/24/2024 9:00 EST Appointment [facility] Radiology CT Outpatient - [address] [address] 04/24/2024 11:00 EST Appointment [facility] Breast Imaging - [facility] [address] [place] [address] [place], [place] 046341 04/27/2024 12:00 EST Appointment [facility] Hematology & Oncology - [address] [phone] 05/02/2024 15:00 EST Telemedicine [facility] Hematology & Oncology [address] [phone] Alisson Carreon MD [address] [place] [address], Level [address] [place] [phone] 05/04/2024 10:15 EST Ancillary Procedure [facility] Cardiology [place] [place] [address] 05/04/2024 11:30 EST Appointment [facility] Hematology & Oncology [address] [phone] 05/04/2024 12:00 EST Appointment [facility] Hematology & Oncology [address] [phone] 06/12/2024 13:00 EST Appointment [facility] Radiology CT - [address] [phone] documented as of this encounter Procedures Procedure Name Priority Date/Time Associated Diagnosis Comments COMPREHENSIVE METABOLIC PANEL (ONCOLOGY USE ONLY-INC MG) STAT 12/15/2016 14:23 EDT Metastatic breast cancer ([facility]-HCC) (HCC-CMS) COMPLETE BLOOD COUNT AND DIFFERENTIAL STAT 12/15/2016 14:23 EDT Metastatic breast cancer (CMS-HCC) (HCC-CMS) documented in this encounter Results * (ABNORMAL) HEMAGRAM AND DIFFERENTIAL (12/15/2016 14:23 EDT) WBC 3.73(L) 4.0 - 12.4 K/cmm 12/15/2016 14:52 [facility] RBC 3.65(L) 3.86 - 5.04 M/cmm 12/15/2016 14:52 [facility] Hemoglobin 12.3 11.6 - 15.2 gm/dl 12/15/2016 14:52 [facility] HCT 34.6(L) 34.9 - 44.4 % 12/15/2016 14:52 [facility] MCV 95 81 - 98 fl 12/15/2016 14:52 [facility] MCH 33.7(H) 26.7 - 33.3 pg 12/15/2016 14:52 [facility] MCHC 35.5 32.1 - 35.9 gm/dl 12/15/2016 14:52 [facility] RDW-CV 12.7 <14.7 % 12/15/2016 14:52 [facility] RDW-SD 41.0 <50.4 fl 12/15/2016 14:52 [facility] PLT 215 141 - 377 K/cmm 12/15/2016 14:52 [facility] MPV 9.8 9.5 - 12.7 fl 12/15/2016 14:52 [facility] Neutrophils 34.0 % 12/15/2016 15:22 [facility] Lymphocytes 59.0 % 12/15/2016 15:22 [facility] Monocytes 4.0 % 12/15/2016 15:22 [facility] Eosinophils 2.0 % 12/15/2016 15:22 [facility] Basophils 1.0 % 12/15/2016 15:22 [facility] ABS Neutrophils 1.27(L) 2.20 - 8.85 K/cmm 12/15/2016 15:22 [facility] ABS Lymphs 2.20 1.09 - 3.30 K/cmm 12/15/2016 15:22 [facility] ABS Monocytes 0.15 0.1 - 0.8 K/[facility] 12/15/2016 15:22 [facility] ABS Eosinophils 0.07 0.03 - 0.61 K/[facility] 12/15/2016 15:22 [facility] ABS Basophils 0.04 0.01 - 0.11 /[facility] 12/15/2016 15:22 [facility] Type of Diff: Manual 12/15/2016 15:22 [facility] Blood specimen (specimen) BLOOD SPECIMEN / Unknown 12/15/2016 14:23 EDT 12/15/2016 14:41 EDT Augustina Colin MD PhD PACKAGES & DNA PROBE ORDERABLES [facility] [address] [place] [address] * (ABNORMAL) COMPREHENSIVE METABOLIC PANEL (ONCOLOGY USE ONLY-INC MG: DRAW GREEN TOP) (12/15/2016 14:23 EDT) Potassium 4.2 3.5 - 5.0 mEq/L 12/15/2016 15:09 [facility] Sodium 142 136 - 145 mEq/L 12/15/2016 15:09 [facility] Chloride 105 96 - 110 mEq/L 12/15/2016 15:09 [facility] CO2 28 22 - 32 mEq/L 12/15/2016 15:09 [facility] Total Alkaline Phosphatase 107 38 - 126 U/L 12/15/2016 15:09 [facility] Bilirubin, Total <0.5 <1.4 mg/dl 12/16/19 17 15:09 [facility] AST 31 15 - 46 U/L 12/15/2016 15:09 [facility] ALT 43 <53 U/L 12/15/2016 15:09 [facility] Albumin 4.1 3.4 - 4.9 g/dl 12/15/2016 15:09 [facility] Total Protein 7.2 6.3 - 8.2 g/dl 12/15/2016 15:09 [facility] Creatinine 0.85 0.52 - 1.04 mg/dl 12/15/2016 15:09 [facility] GFR, Calculated 77 >60 ml/min/1.7 3m2 12/15/2016 15:09 [facility] Comment: eGFR calculated using CKD-EPI equation for non Americans. Multiply eGFR by 1.16 for Americans. BUN 19 10 - 26 mg/dl 12/15/2016 15:09 [facility] Calcium 9.6 8.5 - 10.5 mg/dl 12/15/2016 15:09 [facility] Calculated Calcium 9.5 8.5 - 10.5 mg/dl 12/15/2016 15:09 [facility] Glucose, Serum 103(H) 70 - 100 mg/dl 12/15/2016 15:09 [facility] Magnesium 2.1 1.7 - 2.8 mg/dl 12/15/2016 15:09 [facility] Blood specimen (specimen) BLOOD SPECIMEN / Unknown 12/15/2016 14:23 EDT 12/15/2016 14:41 EDT uAgustina Colin MD PhD CHEMISTRY & BLOOD GA S ORDERABLES [facility] [address] [place] [address] documented in this encounter Visit Diagnoses Diagnosis Metastatic breast cancer- Primary documented in this encounter Care Teams Used Car Make Ready Worker Relationship Specialty Start Date End Date Linda Blancas MD [facility] [address] [place] [address] PCP - General 01/06/11 documented as of this encounter
--- OUTSIDE RECORDS SUMMARY | 2024-03-20 15:08 | XMS_ITS | Encounter Summary ---
Author Organization [facility] Address [address] [place] [address] Care Team Providers Care Customer Success Associate Name Role Phone Linda Blancas MD Primary Care Provider [phone] Reason for Visit * Reason Onset Date Comments Results 01/06/2017 Encounter Details Date Type Department Care Team (Late st Contact Info) Description 01/06/2017 Telephone [facility] H[facility]ology & Oncology - [place] [address] [place] [address] Augustina Colin MD PhD Results Social History [...] Telephone Encounter - Bess Orellana - 01/06/2017 4644 EDT Lab results from [facility] from 01/04/2017 entered. documented in this encounter Plan of Treatment Upcoming Encounters Date Type Department Care Team (Late st Contact Info) Description 04/02/2024 10:30 EDT Appointment [facility] Interventional Radiology Unit [address] [place] [address] [phone] 04/02/2024 15:15 EDT Office Visit [facility] Surgical Oncology - [address] 617441 Adolfo Carreno MD [address] [place] [address] 2 [place] [phone] 04/05/2024 9:30 EDT Telemedicine [facility] Palliative Care Services [address] [place] [address] [phone] Chichi Woods MD [address] [place] [address] [phone] 04/11/2024 15:00 EDT Telemedicine [facility] Hematology & Oncology [address] [phone] Alisson Carreon MD [address] [place] [address] [phone] 04/13/2024 13:30 EDT Appointment [facility] Hematology & Oncology [address] [phone] 04/13/2024 14:00 EDT Appointment [facility] Hematology & Oncology [address] 121241 04/16/2024 10:00 EST Telemedicine [facility] Palliative Care Services [address] [place] [address] [phone] Chichi Woods MD [address] [place] [address], [address] [phone] 04/24/2024 9:00 EST Appointment [facility] Radiology CT Outpatient - [address] [phone] 04/24/2024 11:00 EST Appointment [facility] Breast Imaging - [address] [phone] 04/27/2024 12:00 EST Appointment [facility] Hematology & Oncology [address] [phone] 05/02/2024 15:00 EST Telemedicine [facility] Hematology & Oncology [address] [phone] Alisson Carreon MD [address] [place] [address], [facility], Level [address] [place] [phone] 05/04/2024 10:15 EST Ancillary Procedure [facility] Cardiology [place] [place] [address] 05/04/2024 11:30 EST Appointment [facility] Hematology & Oncology [address] [id number] 05/04/2024 12:00 EST Appointment [facility] Hematology & Oncology - [address] [phone] 06/12/2024 13:00 EST Appointment [facility] Radiology CT - [address] [phone] documented as of this encounter Procedures Procedure Name Priority Date/Time Associated Diagnosis Comments COMPLETE BLOOD COUNT AND DIFFERENTIAL Routine 01/04/2017 COMPREHENSIVE METABOLIC PANEL (CMP) Routine 01/04/2017 documented in this encounter Results * (ABNORMAL) HEMAGRAM AND DIFFERENTIAL (01/04/2017) WBC, External 3.4(A) 4.5 - 11.0 [facility] RBC, External 3.52(A) 4.00 - 5.20 [facility] Hemoglobin, External 11.7(A) 12.0 - 15.0 [facility] HCT, External 35.4(A) 36.0 - 46.0 [facility] MCV, External 101(A) 80 - 100 [facility] MCH, External 33.2 26.0 - 34.0 [facility] MCHC, External 33.1 31.0 - 37.0 [facility] PLT, External 277 150 - 350 [facility] RDW-CV, External 15.1(A) 11.5 - 14.5 [facility] Neutrophils, External 47 31.0 - 76.0 [facility] Lymphocytes, External 45.8(A) 24.0 - 44.0 [facility] Monocytes, External 6.0 2.0 - 11.0 [facility] Eosinophils, External 0.6(A) 1.0 - 4.0 [facility] Basophils, External 0.3 0.0 - 2.0 [facility] ABS Neutrophils, External 1.58 1.50 - 7.80 [facility] ABS Lymphs, External 1.54 1.10 - 4.80 [facility] ABS Monocytes, External 0.20 [facility] ABS Eosinophils, External 0.02 [facility] ABS Basophils, External 0.01 [facility] Blood specimen (specimen) 01/04/2017 Historical Provider MD PACKAGES & DNA [place] OBE ORDERABLES [facility] * (ABNORMAL) COMPREHENSIVE METABOLIC PANEL (CMP) (01/04/2017) GFR, Calculated, External >60 [facility] Glucose, Serum, External 97 74 - 106 [facility] Albumin, External 3.7 3.4 - 5.0 [facility] Total Alkaline Phosphatase, External 93 48 - 129 [facility] ALT, External 23 13 - 61 [facility] AST, External 22 15 - 37 [facility] BUN, External 21(A) 7 - 18 [facility] Calculated Calcium, External [facility] Calcium, External 8.7 8.5 - 10.1 [facility] Chloride, External 106 98 - 107 [facility] CO2, External 30 21 - 32 [facility] Creatinine, External 1.0 0.6 - 1.3 [facility] Fasting?, External [facility] Potassium, External 3.5 3.5 - 5.1 [facility] Sodium, External 142 136 - 145 [facility] Total Protein, External 7.1 6.4 - 8.2 [facility] Bilirubin, Total, External 0.47 0.20 - 1.00 [facility] Blood specimen (specimen) 01/04/2017 Historical Provider CHEMISTRY & BLOOD GAS ORDERABLES [facility] documented in this encounter Visit Diagnoses Not on filedocumented in this encounter Care Teams Customer Success Associate Relationship Specialty Start Date End Date Linda Blancas MD [address] [place] [address] PCP - General 01/06/11 documented as of this encounter
--- OUTSIDE RECORDS SUMMARY | 2024-03-20 15:08 | XMS_ITS | Encounter Summary ---
Author Organization [facility] Address [address] [place] [address] Care Team Providers Care Airline Dispatcher Name Role Phone Linda Blancas MD Primary Care Provider [phone] Reason for Visit * Reason Onset Date Comments Results 12/22/2016 Encounter Details Date Type Department Care Team (Late st Contact Info) Description 12/22/2016 Telephone [facility] Hematology & Oncology - [facility] [address] [place] [address] Augustina Colin MD PhD Results Social History [...] * Telephone Encounter - Bess Orellana - 12/22/2016 2598 EDT Lab results from [facility] from 12/21/2016 entered. documented in this encounter Plan of Treatment Upcoming Encounters Date Type Department Care Team (Late st Contact Info) Description 04/02/2024 10:30 EDT Appointment [facility] Interventional Radiology Unit [address] [place] [address] [phone] 04/02/2024 15:15 EDT Office Visit [facility] Surgical Oncology - [address] [phone] Adolfo Carreno MD [address] [place] [address] 2 [place] [phone] 04/05/2024 9:30 EDT Telemedicine [facility] Palliative Care Services [address] [place] [address] 198151 Chichi Woods MD [address] [place] [address] [phone] 04/11/2024 15:00 EDT Telemedicine [facility] Hematology & Oncology [address] 897001 Alisson Carreon MD [address] [place] [address] 2 [place] [phone] 04/13/2024 13:30 EDT Appointment [facility] Hematology & Oncology [address] [id number] 04/13/2024 14:00 EDT Appointment [facility] Hematology & Oncology [address] [phone] 04/16/2024 10:00 EST Telemedicine [facility] Palliative Care Services [address] [place] [address] [phone] Chichi Woods MD [address] [place] [address], [address] [phone] 04/24/2024 9:00 EST Appointment [facility] Radiology CT Outpatient - [address] [id number] 04/24/2024 11:00 EST Appointment [facility] Breast Imaging - [address] [id number] 04/27/2024 12:00 EST Appointment [facility] Hematology & Oncology [address] [phone] 05/02/2024 15:00 EST Telemedicine [facility] Hematology & Oncology [address] [phone] Alisson Carreon MD [address] [place] [address], [facility], Level 2 [place] [phone] 05/04/2024 10:15 EST Ancillary Procedure [facility] Cardiology [place] [address] [place] [address] 05/04/2024 11:30 EST Appointment [facility] Hematology & Oncology [address] [id number] 05/04/2024 12:00 EST Appointment [facility] Hematology & Oncology - [address] [phone] 06/12/2024 13:00 EST Appointment [facility] Radiology CT - [address] [phone] documented as of this encounter Procedures Procedure Name Priority Date/Time Associated Diagnosis Comments COMPLETE BLOOD COUNT AND DIFFERENTIAL Routine 12/21/2016 COMPREHENSIVE METABOLIC PANEL (CMP) Routine 12/21/2016 documented in this encounter Results * (ABNORMAL) COMPREHENSIVE METABOLIC PANEL (CMP) (12/21/2016) Pathologist [facility] GFR, Calculated, External 58 [facility] Glucose, Serum, External 83 74 - 106 [facility] Albumin, External 3.4 3.4 - 5.0 [facility] Total Alkaline Phosphatase, External 105 48 - 129 [facility] ALT, External 24 13 - 61 [facility] AST, External 17 15 - 37 [facility] BUN, External 20(A) 7 - 18 [facility] Calculated Calcium, External [facility] Calcium, External 9.0 8.5 - 10.1 [facility] Chloride, External 106 98 - 107 [facility] CO2, External 27 21 - 32 [facility] Creatinine, External 1.0 0.6 - 1.3 [facility] Fasting?, External [facility] Potassium, External 3.9 3.5 - 5.1 [facility] Sodium, External 142 136 - 145 [facility] Total Protein, External 6.8 6.4 - 8.2 [facility] Bilirubin, Total, External 0.28 0.20 - 1.00 [facility] Blood specimen (specimen) 12/21/2016 Historical Provider MD CHEMISTRY & BLOOD GAS ORDERABLES [facility] * (ABNORMAL) HEMAGRAM AND DIFFERENTIAL (12/21/2016) Pathologist [facility] WBC, External 3.5(A) 4.5 - 11.[address] [facility] RBC, External 3.54(A) 4.00 - 5.20 [facility] Hemoglobin, External 12.1 12.0 - 15.0 [facility] HCT, External 34.7(A) 36.0 - 46.0 [facility] MCV, External 98 80 - 100 [facility] MCH, External 34.2(A) 26.0 - 34.0 [facility] MCHC, External 34.9 31.0 - 37.0 [facility] PLT, External 295 150 - 350 [facility] RDW-CV, External 14.0 11.5 - 14.5 [facility] Neutrophils, External 22(A) 31 - 76 [facility] Lymphocytes, External 53(A) 24 - 44 [facility] Monocytes, External 11 2 - 11 [facility] Eosinophils, External 0(A) 1 - 4 [facility] Basophils, External 2 0 - 2 [facility] ABS Neutrophils, External 0.8(A) 1.5 - 7.8 [facility] ABS Lymphs, External 2.3 1.1 - 4.8 [facility] ABS Monocytes, External 0.4 [facility] ABS Eosinophils, External 0.0 [facility] ABS Basophils, External 0.1 [facility] Blood specimen (specimen) 12/21/2016 Historical Provider PACKAGES & DNA AL OBE ORDERABLES [facility] documented in this encounter Visit Diagnoses Not on filedocumented in this encounter Care Teams Airline Dispatcher Relationship Specialty Start Date End Date Linda Blancas MD [facility] [address] [place] [address] PCP - General 01/06/11 documented as of this encounter
--- OUTSIDE RECORDS SUMMARY | 2024-03-20 15:08 | XMS_ITS | Encounter Summary ---
Author Organization [facility] Address [address] [place] [address] Care Team Providers Care Asbestos Siding Mechanic Name Role Phone Linda Blancas MD Primary Care Provider [phone] Reason for Visit * Reason Onset Date Comments Labs Only 01/06/2017 Encounter Details Date Type Department Care Team (Late st Contact Info) Description 01/06/2017 Telephone [facility] Cancer Center Hematology & Oncology - [facility] [address] [place] [address] Quita Rob, RN Labs Only Social History [...] Telephone Encounter - Quita Rob RN - 01/06/2017 1328 EDT Called and left message for Ms Oconnorwest to notify her labs are within parameters to continue ibrance. documented in this encounter Plan of Treatment Upcoming Encounters Date Type Department Care Team (Late st Contact Info) Description 04/02/2024 10:30 EDT Appointment [facility] Interventional Radiology Unit [address] [place] [address] [phone] 04/02/2024 15:15 EDT Office Visit [facility] Surgical Oncology - [address] [phone] Adolfo Carreno MD [address] [place] [address] [phone] 04/05/2024 9:30 EDT Telemedicine [facility] Palliative Care Services [address] [place] [address] [phone] Chichi Woods MD [address] [place] [address] [phone] 04/11/2024 15:00 EDT Telemedicine [facility] Hematology & Oncology [address] [phone] Alisson Carreon MD [address] [place] [address] [phone] 04/13/2024 13:30 EDT Appointment [facility] Hematology & Oncology [address] [phone] 04/13/2024 14:00 EDT Appointment [facility] Hematology & Oncology [address] [id number] 04/16/2024 10:00 EST Telemedicine [facility] Palliative Care Services [address] [place], [place] 569141 Chichi Woods MD [address] [place] [address], [address] [place] [phone] 04/24/2024 9:00 EST Appointment [facility] Radiology CT Outpatient - [address] [id number] 04/24/2024 11:00 EST Appointment [facility] Breast Imaging - [facility] [address] [place], [place] 164891 04/27/2024 12:00 EST Appointment [facility] Hematology & Oncology - [address] [id number] 05/02/2024 15:00 EST Telemedicine [facility] Hematology & Oncology - [address] [phone] Alisson Carreon MD [address] [place] [address], Level [address] [place] [phone] 05/04/2024 10:15 EST Ancillary Procedure [facility] Cardiology - [address] [place], [place] [phone] 05/04/2024 11:30 EST Appointment [facility] Hematology & Oncology - [address] [phone] 05/04/2024 12:00 EST Appointment [facility] Hematology & Oncology [address] [phone] 06/12/2024 13:00 EST Appointment [facility] Radiology CT - [address] [phone] documented as of this encounter Visit Diagnoses Not on filedocumented in this encounter Care Teams Asbestos Siding Mechanic Relationship Specialty Start Date End Date Linda Blancas MD [facility] [address] [place] [address] PCP - General 01/06/11 documented as of this encounter
--- OUTSIDE RECORDS SUMMARY | 2024-03-20 15:08 | XMS_ITS | Encounter Summary ---
Author Organization [facility] Address [address] [place] [address] Care Team Providers Care Dry Roller Name Role Phone Linda Blancas MD Primary Care Provider [phone] Reason for Visit * Reason Comments Breast Cancer Encounter Details Date Type Department Care Team (Latest Contact Info) Description 12/09/2016 14:00 EDT Office Visit [facility] - [address] [address] Ochoa Oconnor MD Rad, Tech 1, MD Menopausal and postmenopausal disorder; Metastatic breast cancer (CMS-HCC) ([facility]) Social History Tobacco Use Types [...] - Inhaled Oxygen Concentration - - Weight 68.5 kg (151 lb) 12/09/2016 1350 EDT Height 156.7 cm (5' 1.7) 12/09/2016 1350 EDT Body Mass Index 27.89 12/09/2016 1350 EDT documented in this encounter Functional Status [...] as of this encounter Discharge Diagnoses Diagnosis M85.89 Other specified disorders of bone density and structure, multiple sites-M85.89[ICD-10-CM] C50.919 Malignant neoplasm of unspecified site of unspecified female breast-C50.919[ICD-10-CM] 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 Yes 07/22/14, 09/26/09, 08/02/05 and 01/28/00 Pharmacologic? No [facility] Patient Information Ethnicity/Race: Nutrition and Habits: Do you consume dairy? Yes Number of servings per day? 2 Do you take calcium supplements? Yes Amount? 1200mg Do you drink 3 or more alcoholic [...] inhibitor: Letrozol (Femera), Anastrozole (arimidex), Exemestane (Aromasin) No TZD's for diabetes (Actos, Avandia) No Medical History: Have you had any of the following?: Hyperthyroidism (over active thyroid) No Hyperparathyroidism (over active parathyroid, high blood calcium) No Kidney failure No Rheumatoid arthritis No Seizure disorder (epilepsy) No Diabetes mellitus No Bariatric surgery/Gastric bypass No Back Surgery Yes Back X-ray Yes Fractures after age 40 No Area: Treatments: Alendronate (Fosamax) Never, Date stopped: Calcitonin (Miacalcin) Never, Date stopped: Denosumab (Prolia) Never, Date stopped: Ibandronate (Boniva) Never, Date stopped: Pamidronate (Aredia) Never, Date stopped: Raloxifene (Evista) Never, Date stopped: Risendronate (Actonel) Never, Date stopped: Teriparatide (Forteo) Never, Date stopped: Zoledronic Acid (Reclast, Zomata) Never, Date stopped: Other: Never, Date stopped: For Women Only: What was your age at menopause? 38 Are you taking estrogen now or within the past year? Never, Date stopped: Have you been treated for breast cancer? Presently Comments: Caroline Goodson 12/09/2016 14:00 documented in this encounter Plan of Treatment Upcoming Encounters Date Type Department Care Team (Late st Contact Info) Description 04/02/2024 10:[address] [facility] Interventional Radiology Unit [address] [place] [address] [phone] 04/02/2024 15:[address] [facility] Surgical Oncology - [address] [phone] Adolfo Carreno MD [address] [place] [address] [phone] 04/05/2024 9:30 EDT Telemedicine [facility] Palliative Care Services [address] [place] [address] [phone] Chichi Woods MD [address] [place] [address] [phone] 04/11/2024 15:00 EDT Telemedicine [facility] Hematology & Oncology [address] [phone] Alisson Carreon MD [address] [place] [address] [phone] 04/13/2024 13:30 EDT Appointment [facility] Hematology & Oncology [address] [phone] 04/13/2024 14:00 EDT Appointment [facility] Hematology & Oncology [address] [phone] 04/16/2024 10:00 EST Telemedicine [facility] Palliative Care Services [address] [place] [address] [phone] Chichi Woods MD [address] [place] [address], [address] [phone] 04/24/2024 9:00 EST Appointment [facility] Radiology CT Outpatient - [address] [id number] 04/24/2024 11:[address] [facility] Breast Imaging - [facility] [address] [id number] 04/27/2024 12:00 EST Appointment [facility] Hematology & Oncology - [address] [phone] 05/02/2024 15:00 EST Telemedicine [facility] Hematology & Oncology [address] [phone] Alisson Carreon MD [address] [place] [address], Level [address] [place] [phone] 05/04/2024 10:[address] [facility] Cardiology [place] [place] [address] 05/04/2024 11:30 EST Appointment [facility] Hematology & Oncology - [address] [phone] 05/04/2024 12:00 EST Appointment [facility] Hematology & Oncology - [address] [phone] 06/12/2024 13:00 EST Appointment [facility] Radiology CT - [address] [phone] documented as of this encounter Procedures Procedure Name Priority Date/Time Associated Diagnosis Comments DXA DUAL XRAY ABSORPTIOMETRY FOR BONE DENSITY ([facility] PERFORMED) Routine 12/13/2016 11:29 EDT Metastatic breast cancer (CMS-HCC) (HCC-CMS) documented in this encounter Results * DXA-DUAL XRAY ABSORPTIOMETRY FOR BONE DENSITY (12/13/2016 11:29 EDT) DEXA Bone Density [facility] DEXA Bone Density, External [facility] Anatomical Region Laterality Modality Other 12/13/2016 11:2 9 EDT Augustina Colin MD PhD IMG DEXA ORDERABLES documented in this encounter Visit Diagnoses Diagnosis Menopausal and postmenopausal disorder Unspecified menopausal and postmenopausal disorder Metastatic breast cancer documented in this encounter Care Teams Dry Roller Relationship Specialty Start Date End Date Linda Blancas MD [facility] [address] [place] [address] PCP - General 01/06/11 documented as of this encounter
--- OUTSIDE RECORDS SUMMARY | 2024-03-20 15:08 | XMS_ITS | Encounter Summary ---
Author Organization [facility] Address [address] [place] [address] Care Team Providers Care Kick Boxer Name Role Phone Linda Blancas MD Primary Care Provider [phone] Reason for Visit * Reason Comments Follow-up Encounter Details Date Type Department Care Team (Late st Contact Info) Description 01/13/2017 14:15 EDT Office Visit [facility] Hematology & Oncology - [facility] [address] [place] [address] Augustina Colin MD PhD Metastatic breast cancer (CMS-HCC) (HCC-CMS) (Primary Dx); Mouth sores Social History Tobacco Use Types Packs/Day Years [...] Reading Time Taken Comments Blood Pressure 136/63 01/13/2017 1459 EDT Pulse 85 01/13/2017 1459 EDT Temperature 36.5 ??C (97.7 ??F) 01/13/2017 1459 EDT Respiratory Rate 16 01/13/2017 1459 EDT Oxygen Saturation 98% 01/13/2017 1459 EDT Inhaled Oxygen Concentration - - Weight 67.5 kg (148 lb 12.8 oz) 01/13/2017 1459 EDT Height 156.6 cm (5' 1.65) 01/13/2017 1459 EDT Body Mass Index 27.52 01/13/2017 1459 EDT documented in this encounter Functional Status [...] Dispensed Refills Start Date End Da te lidocaine (LIDOCAINE) 2 % solutionIndications:Metas tatic breast cancer,Mouth sores 5 mL by mucous membrane route as needed for Pain. Apply to mouth sores as needed. 100 mL 1 01/13/2017 06/16/2017 documented in this encounter Progress Notes * Augustina Colin MD - 01/13/2017 1415 EDT REASON FOR OFFICE VISIT: Evaluation of side effects while receiving letrozole and palbociclib ?? PROBLEM LIST: 1. 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 a. Ultrasound performed in [place] identifying an irregular heterogeneous soft tissue mass measuring 1.2 x 1.2 x 1.5 cm. ?? b. ??Two punch biopsies near the site of the skin changes the right breast perfomed by Dr Carreno 10/21/2016; ??Pathology identified an invasive ductal type carcinoma involving the epidermis and dermis of the skin, nuclear grade 2, which was ER positive 80%, KS positive 20%. ??HER-2 1+ by IHC. ??ISHrevealed a HER-2 to chromosome 17 ratio of 1.3 and was nonamplified. ?? c. Staging scans: MRI head negative; CT [...] initiated October 2016 and palbociclib initiated November 2015 2. DCIS in 2004 at the age of [...] significance in NMN, otherwise negative. ?? 4. Gynecologic history: postmenopausal, having had premature [...] Other chronic health issues: gastroesophageal reflux disease. ?? SUBJECTIVE: Ms Pleitez presents clinic today to discuss side effects related to letrozole and palbociclib. Her primary side effects with the palbociclib are fatigue and mouth sores. She uses a mouth rinse recommended by her dentist with helps with the mouth sores. They are very discrete and small but her when she eats. She is more fatigued when she is on the palbociclb and has cut back on work on those weeks. She has mild hot flashes but they do not interfere with her function. ROS: A 10 point review of systems was obtained. Other than described in the subjective she notes decreased appetite, occasional constipation, occasional diarrhea, fatigue relieved with rest, occasional headaches Medications Prior to Today's Visit Medication Sig ??? calcium-vitamin D (OS-HCAR D) 500 mg(1,250mg) -200 unit per tablet [...] to the clinic with her today. She is working almost full-time but would like to decrease her hours. Objective: There were no vitals taken for this visit. Estimated body mass index is 27.41 kg/(m^2) as calculated from the following: Height as of 12/15/16: 156.7 cm (61.69). Weight as of 12/15/16: 67.3 kg (148 lb 6.4 oz). ECOG Performance Status: 0 General: Comfortable, cooperative and in no apparent distress HEENT: Pupils are equal, round, reactive to light; Extraocular muscles are intact; [place]ucosa is moist; no mucosal lesions are identified LYMPH: No cervical, supraclavicular lymphadenopathy LUNGS: Clear to auscultation bilaterally, resonant to percussion CARDIOVASCULAR: Regular, rate and rhythm; No murmurs, rubs or gallops Right Breast: lateral aspect with a firm nodule measuring approximately 1 cm. ABDOMEN: Soft, non-tender, non distended, no hepatosplenomegaly appreciated. EXTREMITIES: No clubbing, cyansis or edema; No calf tenderness NEURO: Alert and oriented x 3; Grossly neurologically intact DIAGNOSTIC DATA Telephone on 01/13/2017 Component Date Value Ref Range Status ??? WBC, External 01/12/2017 2.9* 4.5 - 11.0 Final ??? RBC, External 01/12/2017 3.48* 4.00 - 5.20 Final ??? Hemoglobin, External 01/12/2017 12.0 12.0 - 15.0 Final ??? HCT, External 01/12/2017 35.8* 36.0 - 46.0 Final ??? MCV, External 01/12/2017 103* 80 - 100 Final ??? MCH, External 01/12/2017 34.5* 26.0 - 34.0 Final ??? MCHC, External 01/12/2017 33.5 31.0 - 37.0 Final ??? PLT, External 01/12/2017 170 150 - 350 Final ??? RDW-CV, External 01/12/2017 16.3* 11.5 - 14.5 Final ??? Neutrophils, External 01/12/2017 44 31 - 76 Final ??? Lymphocytes, External 01/12/2017 37 24 - 44 Final ??? Monocytes, External 01/12/2017 5 2 - 11 Final ??? Eosinophils, External 01/12/2017 1 1 - 4 Final ??? Basophils, External 01/12/2017 2 0 - 2 Final ??? ABS Neutrophils, External 01/12/2017 1.3* 1.5 - 7.8 Final ??? ABS Lymphs, External 01/12/2017 1.4 1.1 - 4.8 Final ??? ABS Monocytes, External 01/12/2017 0.1 Final ??? ABS Eosinophils, External 01/12/2017 0.0 Final ??? ABS Basophils, External 01/12/2017 0.1 Final ? ? GFR, Calculated, External 01/12/2017 >60 Final ??? Glucose, Serum, External 01/12/2017 74 74 - 106 Final ??? Albumin, External 01/12/2017 3.6 3.4 - 5.0 Final ??? Total Alkaline Phosphatase, Compensation Associate* 01/12/2017 103 48 - 129 Final ??? ALT, External 01/12/2017 28 13 - 61 Final ??? AST, External 01/12/2017 24 15 - 37 Final ??? BUN, External 01/12/2017 20* 7 - 18 Final ??? Calcium, External 01/12/2017 8.8 8.5 - 10.1 Final ??? Chloride, External 01/12/2017 109* 98 - 107 Final ??? CO2, External 01/12/2017 28 21 - 32 Final ??? Creatinine, External 01/12/2017 0.9 0.6 - 1.3 Final ??? Potassium, External 01/12/2017 3.8 3.5 - 5.1 Final ??? Sodium, External 01/12/2017 143 136 - 145 Final ??? Total Protein, External 01/12/2017 7.0 6.4 - 8.2 Final ??? Bilirubin, Total, External 01/12/2017 0.50 0.20 - 1.00 Final ASSESSMENT: ??Ms Bernstein is a 56-year-old female with metastatic breast cancer with metastatic disease in the mediastinal lymph node. Metastatic disease was identified in the setting of a biopsy-proven skin recurrence. she has been on letrozole and Palbociclib for approximately 2 months. She is tolerating the 125mg dose of palbociclib. She has mouth sores and we will call in some viscous lidocaine that she can apply to the small ulcers in her mouth. PLAN: 1. Continue letrozole 2.5 mg daily and palbociclib 125mg daily for 21 out of 28 days. Palbociclib will be started next Mon 2. ??Check CBC and differential every week and adjust palbociclib doses as needed. 4. ??Would repeat Ultrasound to assess response to therapy in March 17. ??Follow-up return in two months ? Patient is encouraged call with any intercurrent concerns or problems. ?? Augustina Colin MD 01/13/2017 14:39 documented in this encounter Plan of Treatment Upcoming Encounters Date Type Department Care Team (Late st Contact Info) Description 04/02/2024 10:30 EDT Appointment [facility] Interventional Radiology Unit [address] [place] [address] [phone] 04/02/2024 15:15 EDT Office Visit [facility] Surgical Oncology - [address] [id number] Adolfo Carreno MD [address] [place] [address] [phone] 04/05/2024 9:30 EDT Telemedicine [facility] [address] [place] [address] [phone] Chichi Woods MD [address] [place] [address] [phone] 04/11/2024 15:00 EDT Telemedicine [facility] Hematology & Oncology [address] [phone] Alisson Carreon MD [address] [place] [address] [phone] 04/13/2024 13:30 EDT Appointment [facility] Hematology & Oncology [address] [phone] 04/13/2024 14:00 EDT Appointment [facility] Hematology & Oncology [address] [phone] 04/16/2024 10:00 EST Telemedicine [facility] [address] [place] [address] [phone] Chichi Woods MD [address] [place] [address] [phone] 04/24/2024 9:[address] [facility] Radiology CT Outpatient - [address] [phone] 04/24/2024 11:00 EST Appointment [facility] Breast Imaging - [facility] [address] [place] [address] [place] [address] 04/27/2024 12:00 EST Appointment [facility] Hematology & Oncology - [address] [address] 05/02/2024 15:00 EST Telemedicine [facility] Hematology & Oncology [address] [phone] Alisson Carreon MD [address] [place] [address], Level [address] [place] [phone] 05/04/2024 10:15 EST Ancillary Procedure [facility] Cardiology - [address] [place] [address] 05/04/2024 11:30 EST Appointment [facility] Hematology & Oncology [address] [address] 05/04/2024 12:00 EST Appointment [facility] Hematology & Oncology [address] [phone] 06/12/2024 13:[address] [facility] Radiology CT - [address] [phone] documented as of this encounter Visit Diagnoses Diagnosis Metastatic breast cancer- Primary Mouth sores Other and unspecified diseases of the oral soft tissues documented in this encounter Care Teams Kick Boxer Relationship Specialty Start Date End Date Linda Blancas MD [facility] [address] [place] [address] PCP - General 01/06/11 documented as of this encounter
--- OUTSIDE RECORDS SUMMARY | 2024-03-20 15:08 | XMS_ITS | Encounter Summary ---
Author Organization [facility] Address [address] [place] [address] Care Team Providers Care Copper Miner Name Role Phone Linda Blancas MD Primary Care Provider [phone] Encounter Details Date Type Department Care Team (Late st Contact Info) Description 12/15/2016 Documentation Visit [facility] Hematology & Oncology - [facility] [address], [place] [phone] Quita Calvin MSW Social History Tobacco Use [...] No 11/17/2016 documented as of this encounter Progress Notes * Quita Calvin MSW - 12/15/2016 5392 EDT SOCIAL WORK ENCOUNTER Pt arrived on time for scheduled meeting with this documentation writer. Pt requested the meeting to discuss her options for FMLA, STD, LTD and SSDI. 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 She continues to work, but has had to take frequent time off for appts, side effects of chemo (takes Ibrance). She has been advised to apply for FMLA by her employer for these intermittent time off days. Explained to her that during FMLA, her employer would cover her insurance. She reports that recently, she has transitioned her health insurance to her 's for better coverage. She does still carry theDental and Vision benefits. Further discussed her questions re: short and long-term disability benefits in which she is aware that she would receive 65% on her income. 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 Discussed that she may be able to do this with her STD, but then the LTD is handled directly from the insurance company contracted by her employer ([employer]). Plan: Advised pt to discuss with her Employer Human Resource national sales representative to determine what her options are for above. Presenting Issue: SSDI Further discuss how SSDI works. She did read the info that was mailed to her, so she understands that while her cancer qualifies her for SSDI. However, as long as she is working and earning > $1170, she would not qualify. Pt adds that she has only worked in the last 15 months in the last 5 years. But states that the reason why she didn't work if b/c she was taking care of her parents in [place] while her father was on hospice and and her mother has Alzheimer's, in addition to helping out with her young niece/nephew when their mother . Usually, SSA looks at the last 5 years out of 10 years in terms of determining eligibility of benefits. Plan: Advised pt to request a [id number] interview with the local SSA office, which would be the [facility] office to further address above. Pt to call this documentation writer with updates of her contacts with both HR and SSA. Will provide ongoing support in addressing the above and other practical issues. ABEL Barahona documented in this encounter Plan of Treatment Upcoming Encounters Date Type Department Care Team (Late st Contact Info) Description 04/02/2024 10:30 EDT Appointment [facility] Interventional Radiology Unit [address] [place] [address] [phone] 04/02/2024 15:15 EDT Office Visit [facility] Surgical Oncology - [address] [phone] Adolfo Carreno MD [address] [place] [address] 2 [place] [phone] 04/05/2024 9:[address] [facility] Palliative Care Services [address] [place] [address] [phone] Chichi Woods MD [address] [place] [address] [phone] 04/11/2024 15:00 EDT Telemedicine [facility] Hematology & Oncology [address] [phone] Alisson Carreon MD [address] [place] [address] [phone] 04/13/2024 13:30 EDT Appointment [facility] Hematology & Oncology [address] [phone] 04/13/2024 14:00 EDT Appointment [facility] Hematology & Oncology [address] [phone] 04/16/2024 10:[address] [facility] Palliative Care Services [address] [place] [address] [phone] Chichi Woods MD [address] [place] [address], [place] [address] [place] [phone] 04/24/2024 9:00 EST Appointment [facility] Radiology CT Outpatient - [address] [id number] 04/24/2024 11:00 EST Appointment [facility] Breast Imaging - [facility] [address] [place] [address] [place], [place] 176051 04/27/2024 12:00 EST Appointment [facility] Hematology & Oncology [address] [phone] 05/02/2024 15:00 EST Telemedicine [facility] Hematology & Oncology [address] [phone] Alisson Carreon MD [address] [place] [address], [address] [place] [phone] 05/04/2024 10:15 EST Ancillary Procedure [facility] Cardiology - [address] [place], [place] [phone] 05/04/2024 11:30 EST Appointment [facility] Hematology & Oncology [address] [phone] 05/04/2024 12:00 EST Appointment [facility] Hematology & Oncology [address] [phone] 06/12/2024 13:00 EST Appointment [facility] Radiology CT - [address] [phone] documented as of this encounter Visit Diagnoses Not on filedocumented in this encounter Care Teams Copper Miner Relationship Specialty Start Date End Date Linda Blancas MD [facility] [address] [place] [address] PCP - General 01/06/11 documented as of this encounter
--- OUTSIDE RECORDS SUMMARY | 2024-03-20 15:08 | XMS_ITS | Encounter Summary ---
Author Organization [facility] Address [address] [place] [address] Care Team Providers Care Day Camp Unit Leader Name Role Phone Linda Blancas MD Primary Care Provider [phone] Reason for Visit * Reason Onset Date Comments Results 01/13/2017 Encounter Details Date Type Department Care Team (Late st Contact Info) Description 01/13/2017 Telephone [facility] Hematology & Oncology - [facility] [address] [place] [address] Augustina Colin MD PhD Results Social History [...] * Telephone Encounter - Bess Orellana - 01/13/2017 1252 EDT Lab results from [facility] from 01/12/2017 entered. documented in this encounter Plan of Treatment Upcoming Encounters Date Type Department Care Team (Late st Contact Info) Description 04/02/2024 10:30 EDT Appointment [facility] Interventional Radiology Unit [address] [place] [address] [phone] 04/02/2024 15:15 EDT Office Visit [facility] Surgical Oncology - [address] [phone] Adolfo Carreno MD [address] [place] [address] 2 [place] [phone] 04/05/2024 9:30 EDT Telemedicine [facility] Palliative Care Services [address] [place] [address] [phone] Chichi Woods MD [address] [place] [address] [phone] 04/11/2024 15:00 EDT Telemedicine [email or web address] Hematology & Oncology [address] [phone] Alisson Carreon MD [address] [place] [address] [phone] 04/13/2024 13:30 EDT Appointment [email or web address] Hematology & Oncology [address] [phone] 04/13/2024 14:00 EDT Appointment [email or web address] Hematology & Oncology [address] [phone] 04/16/2024 10:00 EST Telemedicine [facility] Palliative Care Services [address] [place] [address] [phone] Chichi Woods MD [address] [place] [address], [address] [phone] 04/24/2024 9:00 EST Appointment [facility] Radiology CT Outpatient - [address] [phone] 04/24/2024 11:00 EST Appointment [facility] Breast Imaging - [address] [phone] 04/27/2024 12:00 EST Appointment [email or web address] Hematology & Oncology [address] [phone] 05/02/2024 15:00 EST Telemedicine [email or web address] Hematology & Oncology [address] [phone] Alisson Carreon MD [address] [place] [address], [facility], Level [address] [place] [phone] 05/04/2024 10:15 EST Ancillary Procedure [facility] Cardiology [place] [address] 05/04/2024 11:30 EST Appointment [email or web address] Hematology & Oncology [address] [phone] 05/04/2024 12:00 EST Appointment [email or web address] Hematology & Oncology - [address] [phone] 06/12/2024 13:00 EST Appointment [facility] Radiology CT - [address] [phone] documented as of this encounter Procedures Procedure Name Priority Date/Time Associated Diagnosis Comments COMPLETE BLOOD COUNT AND DIFFERENTIAL Routine 01/12/2017 COMPREHENSIVE METABOLIC PANEL (CMP) Routine 01/12/2017 documented in this encounter Results * (ABNORMAL) COMPREHENSIVE METABOLIC PANEL (CMP) (01/12/2017) Pathologist [facility] GFR, Calculated, External >60 [facility] Glucose, Serum, External 74 74 - 106 [facility] Albumin, External 3.6 3.4 - 5.0 [facility] Total Alkaline Phosphatase, External 103 48 - 129 [facility] ALT, External 28 13 - 61 [facility] AST, External 24 15 - 37 [facility] BUN, External 20(A) 7 - 18 [facility] Calculated Calcium, External [facility] Calcium, External 8.8 8.5 - 10.1 [facility] Chloride, External 109(A) 98 - 107 [facility] CO2, External 28 21 - 32 [facility] Creatinine, External 0.9 0.6 - 1.3 [facility] Fasting?, External [facility] Potassium, External 3.8 3.5 - 5.1 [facility] Sodium, External 143 136 - 145 [facility] Total Protein, External 7.0 6.4 - 8.2 [facility] Bilirubin, Total, External 0.50 0.20 - 1.00 [facility] Blood specimen (specimen) 01/12/2017 Historical Provider CHEMISTRY & BLOOD GAS ORDERABLES [facility] * (ABNORMAL) HEMAGRAM AND DIFFERENTIAL (01/12/2017) Pathologist [facility] WBC, External 2.9(A) 4.5 - 11.0 [facility] RBC, External 3.48(A) 4.00 - 5.20 [facility] Hemoglobin, External 12.0 12.0 - 15.0 [facility] HCT, External 35.8(A) 36.0 - 46.0 [facility] MCV, External 103(A) 80 - 100 [facility] MCH, External 34.5(A) 26.0 - 34.0 [facility] MCHC, External 33.5 31.0 - 37.0 [facility] PLT, External 170 150 - 350 [facility] RDW-CV, External 16.3(A) 11.5 - 14.5 [facility] Neutrophils, External 44 31 - 76 [facility] Lymphocytes, External 37 24 - 44 [facility] Monocytes, External 5 2 - 11 [facility] Eosinophils, External 1 1 - 4 [facility] Basophils, External 2 0 - 2 [facility] ABS Neutrophils, External 1.3(A) 1.5 - 7.8 [facility] ABS Lymphs, External 1.4 1.1 - 4.8 [facility] ABS Monocytes, External 0.1 [facility] ABS Eosinophils, External 0.0 [facility] ABS Basophils, External 0.1 [facility] Blood specimen (specimen) 01/12/2017 Historical Provider PACKAGES & DNA RI OBE ORDERABLES [facility] documented in this encounter Visit Diagnoses Not on filedocumented in this encounter Care Teams Day Camp Unit Leader Relationship Specialty Start Date End Date Linda Blancas MD [facility] [address] [place] [address] PCP - General 01/06/11 documented as of this encounter
--- OUTSIDE RECORDS SUMMARY | 2024-03-20 15:09 | XMS_ITS | Encounter Summary ---
Author Organization [facility] Address [address] [place] [address] Care Team Providers Care Configuration Release Manager Name Role Phone Linda Blancas MD Primary Care Provider [phone] Reason for Referral * Radiology Services (Routine) - Closed Specialty Diagnoses / Procedures Referred By Contac t Referred To Contact Diagnoses Malignant neoplasm of right female breast, unspecified site of breast Procedures MA BREAST OUTSIDE CONSULTATION Adolfo Carreno MD [address] [place] [address] [address] [place] [address] Referral ID Status Reason Start Date Expiration Date Visits Re quested Visits Authorized [id number] Closed 11/03/2016 1 1 Encounter Details Date Type Department Care Team (Late st Contact Info) Description 11/03/2016 Orders Only [facility] Surgical Oncology - [address] [address] Carmel Riley, [place] Malignant neoplasm of right female breast, unspecified site of breast (Primary Dx) Social History Tobacco [...] visiting a doctor's office or shopping? No 11/01/2016 Cognitive Status Response Date of Assessm ent Because of a physical, menta l, or emotional condition, does this person have serious difficulty concentrating, remembering, or making decisions? No 11/01/2016 documented as of this encounter Plan of Treatment Upcoming Encounters Date Type Department Care Team (Late st Contact Info) Description 04/02/2024 10:30 EDT Appointment [facility] Interventional Radiology Unit [address] [place] [address] [phone] 04/02/2024 15:15 EDT Office Visit [facility] Surgical Oncology - [address] [phone] Adolfo Carreno MD [address] [place] [address] 2 [place] [phone] 04/05/2024 9:30 EDT Telemedicine [facility] - [facility] Palliative Care Services [address] [place] [address] [phone] Chichi Woods MD [address] [place] [address], [address] [phone] 04/11/2024 15:00 EDT Telemedicine [facility] Hematology & Oncology - [address] [phone] Alisson Carreon MD [address] [place] [address] 2 [place] [phone] 04/13/2024 13:30 EDT Appointment [facility] Hematology & Oncology - [address] [phone] 04/13/2024 14:00 EDT Appointment [facility] Hematology & Oncology - [address] [id number] 04/16/2024 10:00 EST Telemedicine [facility] - [facility] Palliative Care Services [address] [place] [address] Chichi Woods MD [address] [facility], [address] [phone] 04/24/2024 9:00 EST Appointment [facility] Radiology CT Outpatient - [address] [id number] 04/24/2024 11:00 EST Appointment [facility] Breast Imaging - [facility] [address] [place], [place] [phone] 04/27/2024 12:00 EST Appointment [facility] Hematology & Oncology - [address] [phone] 05/02/2024 15:00 EST Telemedicine [facility] Hematology & Oncology - [address] [phone] Alisson Carreon MD [address] [place] [address], [facility], Level [address] [place] [phone] 05/04/2024 10:15 EST Ancillary Procedure [facility] Cardiology - [address] [place] [address] 05/04/2024 11:30 EST Appointment [facility] Hematology & Oncology - [address] [phone] 05/04/2024 12:00 EST Appointment [facility] Hematology & Oncology - [address] [phone] 06/12/2024 13:00 EST Appointment [facility] Radiology CT - [address] [phone] documented as of this encounter Procedures Procedure Name Priority Date/Time Associated Diagnosis Comments MA BREAST OUTSIDE CONSULTATION Routine 11/03/2016 14:07 EDT Malignant neoplasm of right female breast, unspecified site of breast documented in this encounter Results * MA BREAST OUTSIDE CONSULTATION (11/03/2016 14:07 EDT) Anatomical Region Laterality Modality Other 11/03/2016 14:0 7 EDT 11/04/2016 10:55 EDT Narrative 11/04/2016 10:55 EDT MA BREAST OUTSIDE CONSULTATION ??11/03/2016 2:07 PM Signs and Symptoms/Comments: ?? C50.911-Malignant neoplasm of unspecified site of right female [id number]; for tumor board discussion on 11/04/16 Comparison: Unilateral left mammography performed November 28, 2015, October 04, 2014. TECHNIQUE: A right mammography obtained at [facility] on October 11, 2016 is submitted for secondary read. CC, XCCL, MLO, and ML views of the right breast were obtained. Findings right breast: A subpectoral augmentation device is seen in the right breast without evidence of failure. In the lateral aspect of the chest wall, and abutting the breast implant there is a soft tissue density measuring approximately 1.5 x 2.0 cm. No comparison are available. On MLO view, this mass projects through the implant. The previously mentioned density was biopsied and represent invasive ductal carcinoma. IMPRESSION: BI-RADS Category Assessment 6: Known, biopsy proven malignancy. Overall impression: BI-RADS Category Assessment 6: Known, biopsy proven malignancy. Recommendation: Annual left breast mammography, next due date November 2016. The patient will be notified of her breast imaging results via a lay letter from radiology. Radiology will contact the patient directly regarding any findings which require additional imaging. This report does not differ with the findings but there is disagreement with respect to the assessment which in the outside report mentioned BI-RADS Category 2 rather than category 0. I have personally reviewed the images and the above interpretation and agree with the findings. Procedure Note Taylor Cooley MD - 11/04/2016 MA BREAST OUTSIDE CONSULTATION 11/03/2016 2:07 PM Signs and Symptoms/Comments: C50.911-Malignant neoplasm of unspecified site of right female [id number]; for tumor board discussion on 11/04/16 Comparison: Unilateral left mammography performed November 28, 2015, October 04, 2014. TECHNIQUE: A right mammography obtained at [facility] on October 11, 2016 is submitted for secondary read. CC, XCCL, MLO, and ML views of the right breast were obtained. Findings right breast: A subpectoral augmentation device is seen in the right breast without evidence of failure. In the lateral aspect of the chest wall, and abutting the breast implant there is a soft tissue density measuring approximately 1.5 x 2.0 cm. No comparison are available. On MLO view, this mass projects through the implant. The previously mentioned density was biopsied and represent invasive ductal carcinoma. IMPRESSION: BI-RADS Category Assessment 6: Known, biopsy proven malignancy. Overall impression: BI-RADS Category Assessment 6: Known, biopsy proven malignancy. Recommendation: Annual left breast mammography, next due date November 2016. The patient will be notified of her breast imaging results via a lay letter from radiology. Radiology will contact the patient directly regarding any findings which require additional imaging. This report does not differ with the findings but there is disagreement with respect to the assessment which in the outside report mentioned BI-RADS Category 2 rather than category 0. I have personally reviewed the images and the above interpretation and agree with the findings. Adolfo Carreno MD [facility] MAMMOGRAPHY SEANE KARLA documented in this encounter Visit Diagnoses Diagnosis Malignant neoplasm of right female breast, unspecified site of breast- Primary documented in this encounter Care Teams Configuration Release Manager Relationship Specialty Start Date End Date Linda Blancas MD [address] [place] [address] [address] [place] [address] PCP - General 01/06/11 documented as of this encounter
--- OUTSIDE RECORDS SUMMARY | 2024-03-20 15:09 | XMS_ITS | Encounter Summary ---
Author Organization [facility] Address [address] [place] [address] Care Team Providers Care Cloth Grader Name Role Phone Linda Blancas MD Primary Care Provider [phone] Encounter Details Date Type Department Care Team (Late st Contact Info) Description 11/04/2016 14:04 EDT - 11/04/2016 14:05 EDT Hospital Encounter [facility] [id number] [place] [address] Anel Vila, [place] [address] [place], [place] [address] Discharge Disposition: Home or Self Care Social [...] No 11/01/2016 documented as of this encounter Discharge Diagnoses [...] 200-400 mg by mouth as needed. 08/30/2018 omeprazole (PRILOSEC) 20 mg capsule Take 1 [...] Appointment [facility] Interventional Radiology Unit [address] [place] [phone] 04/02/2024 15:15 EDT Office Visit [facility] Surgical Oncology - [address] [phone] Adolfo Carreno MD [address] [place] [phone] 04/05/2024 9:30 EDT Telemedicine [facility] Palliative Care Services [address] [place] [address] [phone] Chichi Woods MD [address] [place] [phone] 04/11/2024 15:00 EDT Telemedicine [facility] Hematology & Oncology - [address] [phone] Alisson Carreon MD [address] [place] [phone] 04/13/2024 13:30 EDT Appointment [facility] Hematology & Oncology - [address] [phone] 04/13/2024 14:00 EDT Appointment [facility] Hematology & Oncology - [address] [phone] 04/16/2024 10:00 EST Telemedicine [facility] Palliative Care Services [address] [place] [address] [phone] Chichi Woods MD [address] [place] [phone] 04/24/2024 9:00 EST [facility]ointment [facility] Outpatient - [address] [phone] 04/24/2024 11:00 EST Appointment [facility] Breast Imaging - [facility] [address] [place] [address] 04/27/2024 12:00 EST Appointment [facility] Hematology & Oncology [address] [phone] 05/02/2024 15:00 EST Telemedicine [facility] Hematology & Oncology [address] [phone] Alisson Carreon MD [address] [place] [address], Level [address] [place] [phone] 05/04/2024 10:15 EST Ancillary Procedure [facility] Cardiology - [address] [place] [address] 05/04/2024 11:30 EST Appointment [facility] Hematology & Oncology [address] [address] 05/04/2024 12:00 EST Appointment [facility] Hematology & Oncology [address] [phone] 06/12/2024 13:00 EST Appointment [facility] Radiology [facility] - [address] [phone] documented as of this encounter Visit Diagnoses Not on filedocumented in this encounter Care Teams Cloth Grader Relationship Specialty Start Date End Date Linda Blancas MD [facility] [address] [place] [address] PCP - General 01/06/11 documented as of this encounter
--- OUTSIDE RECORDS SUMMARY | 2024-03-20 15:09 | XMS_ITS | Encounter Summary ---
Author Organization [facility] Address [address] [place] [address] Care Team Providers Care Emergency Management Director Name Role Phone Ramses Blancas MD Primary Care Provider [phone] Reason for Referral * (Routine) - Closed Specialty Diagnoses / Procedures Referred By Contac t Referred To Contact Diagnoses Metastatic breast cancer Procedures DXA-DUAL XRAY ABSORPTIOMETRY FOR BONE DENSITY Augustina Colin MD PhD Referral ID Status Reason Start Date Expiration Date Visits Re quested Visits Authorized [id number] Closed 12/15/2016 1 1 Reason for Visit * Reason Comments Follow-up Encounter Details Date Type Department Care Team (Late st Contact Info) Description 11/17/2016 15:45 EDT Office Visit [facility] Hematology & Oncology - [address] [place] [place] [address] Augustina Colin MD PhD Metastatic breast cancer [...] Sign Reading Time Taken Comments Blood Pressure 123/65 11/17/2016 1549 EDT Pulse 100 11/17/2016 1549 EDT Temperature 36.4 ??C (97.5 ??F) 11/17/2016 1549 EDT Respiratory Rate 16 11/17/2016 1549 EDT Oxygen Saturation 100% 11/17/2016 1549 EDT Inhaled Oxygen Concentration - - Weight 68.2 kg (150 lb 4.8 oz) 11/17/2016 1549 E DT Height 156 cm (5' 1.42) 11/17/2016 1549 EDT Body Mass Index 28.01 11/17/2016 1549 EDT documented in this encounter Functional Status [...] Progress Notes * Augustina Colin MD - 11/17/2016 1545 EDT REASON FOR OFFICE VISIT: Discussion of medical oncology management in the setting of metastatic breast cancer. PROBLEM LIST: HPI is obtained from patient interview and review of patient medical record. 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 This DCIS was nuclear grade 2, per report 2.7 cm in greatest dimension. She was told that it involved 3 quadrants. She elected to proceed with a right total mastectomy and implant reconstruction. She had augmentation done with the left breast. A positive margin was present. No additional surgery could be offered because of the location of the margin. She elected to forego radiation and tamoxifen. She then developed some skin changes on the lateral aspect of her left implant spring 2016. This was very near the site that was used for inflating the implant. She was then seen by Dr Garland in the [place] area and an ultrasound was performed, identifying an irregular heterogeneous soft tissue mass measuring 1.2 x 1.2 x 1.5cm. She was then seen by Dr Carreno on 10/21/2016. Two punch biopsies were performed near the site of the skin changes the left breast area. Pathology identified an invasive ductal type carcinoma, nuclear grade 2, which was ER positive 80%, WI positive 20%. HER-2 1+ by IHC. ANNE MARIE revealed a HER-2 to chromosome 17 ratio of 1.3 and was nonamplified. The adenocarcinoma was involved in the epidermis anddermis of the skin. Staging scans were pursued. The CT scan of the chest identified numerous scattered bilateral nodules throughout the lungs, the largest measuring 4 mm. The soft tissue mass was identified near the right breast implant. She was also found to have enlarged mediastinal lymph nodes. A CT scan of the abdomen and nuclear bone scan were without evidence of malignancy. ?? 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 She is . She has a paternal aunt who had breast cancer in her 30s. She took hormone replacement therapy for about5 years after the premature ovarian failure and discontinued it at the time of her breast cancer diagnosis. 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 ?? PAST MEDICAL HISTORY: Premature ovarian failure, DCIS, gastroesophageal reflux disease. SUBJECTIVE: Ms Randy Nesbitt presents clinic today discuss next steps in oncologic management in thesetting of metastatic cancer. She has recovered from her biopsy. She started letrozole 2 days ago. She has not started palbocilib but will soon. She has several questions about whether or not breast surgery is out of the question the setting of metastatic disease. She was told by the plastic surgeon that he felt that there was a slow leak in her saline implant. She knows that there is a difference in the size of both breasts. She has continued skin changes in the area that was biopsied but thisis not changed. She does not have any problems with lymphedema or range of motion. She and her also has several questions about what the appropriate monitoring should be after mastectomy. They also has several questions about length of survival and options for therapy. They are not interested in pursuing a [facility]. ROS: A 10 point review of systems was obtained. Other than described in the subjective the entire review of systems is negative. Medications Prior to Today's Visit [...] capsule Take 125 mg by mouth daily. (Patient not taking: Reported on 11/17/2016) ??? RED YEAST RICE EXTRACT ORAL Take [...] the clinic with her today. 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 They live in the [place] area. Objective: BP 123/65 Pulse 100 Temp 36.4 ??C (97.5 ??F) Resp 16 Ht 156 cm (61.42) Wt 68.2 kg (150 lb 4.8 oz) SpO2 100% BMI 28.01 kg/m2 Estimated body mass index is 28.01 kg/(m^2) as calculated from the following: Height as of this encounter: 156 cm (61.42). Weight as of this encounter: 68.2 kg (150 lb 4.8 oz). ECOG Performance Status: 0 [...] known visit with results is: Admission on 11/05/2016, Discharged on 11/05/2016 Component Date Value Ref Range Status ??? Pathology Report: 11/05/2016 Final Value:CYTOPATHOLOGY REPORT Reports generated via electronic interface contain original data; however they are lacking the format of the original report. Caution should be taken when reading/interpreting unformatted reports. Name: SUNSHINE SUBRAMANIAN : 1960 (Age: 56) F Collect Date: 11/05/2016 Location: [facility] Receive Date: 11/05/2016 Provider: MARY HOOK MD Copy to: RAMSES BLANCAS MD CYTOLOGIC DIAGNOSIS: A. LYMPH NODE, RIGHT PARATRACHEAL, STATION 4R, 1.0 CM, ENDOBRONCHIAL ULTRASOUND GUIDED FINE NEEDLE ASPIRATION: - Metastatic adenocarcinoma, consistent with breast primary. See comment. B. LYMPH NODE, SUBCARINAL, STATION 7, 1.25CM, ENDOBRONCHIAL ULTRASOUND GUIDED FINE NEEDLE ASPIRATION: - Metastatic adenocarcinoma, consistent with breast primary. See comment. COMMENT: Both s pecimens are cellular and consist of similar malignant epithelial cells arranged in cohesive clusters and lying singly. The tumor cells have striking monomorphism with eccentrically located small round nuclei and uniform chromatin. Rare intracytoplasmic target vacuoles are identified. A cell block was examined for specimen (B) and shows a cellular specimen composed of abundant tumor cells. The tumor cells are morphologically similar to the patient's breast tumor ([id number]). A small panel of immunostains was performed, the results of which support the morphologic impression of breast origin for this metastatic tumor. Please also see report of the concurrent surgical specimen ([id number]) for additional prognostic information, including estrogen/progesterone receptor status and Her-2 mack analysis. This case was reviewed at the intradepartmental consultation conference. Immunoperoxidase staining was performed on this case to further characterize the lesion. ANT IBODY(CLONE)(BLOCK):RESULT GATA3 ([id number], [place]) (cell block): Strong positive nuclear staining in tumor cells TTF-1 (8G7G3/1, [place]) (cell block): Negative NOTE: One or more of the reagents [...] reagents' performance characteristics have been determined by the [facility]. The positive and negative controls worked appropriately. If immunoperoxidase staining has been performed on alcohol fixed cytology specimens, which has not been fully validated, the assays should be interpreted with caution and correlated with clinical data. This laboratory is certified under the Clinical Laboratory Improvement Amendments of 1988 (CLI A-88) as qualified to perform high complexity clinical laboratory testing. Dr. Dominguez 11/09/2016 3:01 PM Document reviewed and electronically signed by: JOSUE DOMINGUEZ MD Report Date: 11/11/2016 09:56 By the signature above, the attending physician certifies that he/she has personally conducted a gross and/or microscopic examination of the described specimens and rendered or confirmed the above diagnosis. Specimen Type: A: EBUS FNA, Lymph Node, Right Paratracheal, Station 4R B: EBUS FNA, Lymph Node, Subcarinal, Station 7 Clinical History: Mediastinal adenopathy Molecular testing requested: previous cancer history and treatment: breast; suspected tumor type: breast Rapid Interpretation: A. LYMPH NODES, RIGHT PARATRACHEAL, STATION 4R, 1.0 CM, ENDOBRONCHIAL ULTRASOUND GUIDED FINE NEEDLE ASPIRATION: Evaluation episode #1: Positive for malignant cells. Evaluation episode #2: Positive for malignant cells. B. LYMP H NODE, SUBCARINAL, STATION 7, 1.25 CM, ENDOBRONCHIAL ULTRASOUND GUIDED FINE NEEDLE ASPIRATION: Evaluation episode #1 Pass 1: Positive for malignant cells. Four dedicated passes into RPMI for IHC and potential molecular studies. Dr. Rodolfo Gutierrez 11/05/2016 1:52 PM Gross Description: A. EBUS FNA, Lymph Node, Right Paratracheal, Station 4R: 3 fixed prepared slides were received. B. EBUS FNA, Lymph Node, Subcarinal, Station 7: 1 fixed prepared slide and 1 tube of RPMI for cell block processing was received. End of Report ??? Pathology Report: 11/05/2016 Final Value:SURGICAL PATHOLOGY REPORT Reports generated via electronic interface contain original data; however they are lacking the format of the original report. Caution should be taken when reading/interpreting unformatted reports. Name: SUNSHINE SUBRAMANIAN : 1960 (Age: 56) F Collect Date: 11/05/2016 Location: [facility] Receive Date: 11/05/2016 Provider: MARY HOOK MD Copy to: RAMSES BLANCAS MD Final Pathologic Diagnosis: LYMPH NODE, SUBCARINAL, STATION 7, NEEDLE CORE BIOPSY: - Metastatic adenocarcinoma consistent with breast primary. See comment. - Lymphovascular invasion present. Comment: Recreation Therapy Aides Teacher slides of this case were reviewed at the intradepartmental consultation conference. For further characterization of the lesion ple ase refer to the concurrent cytological specimen ([id number]). Estrogen and progesterone receptor assays and Her2 studies have been ordered and results will be issued in separate procedure reports. Dr. Nguyen 11/09/2016 9:42 PM Document reviewed and electronically signed by: VIRGIL BOWEN MD Report Date: 11/10/2016 16:23 By the signature above, the attending physician certifies that he/she has personally conducted a gross and/or microscopic examination of the described specimens and rendered or confirmed the above diagnosis. Clinical History: Mediastinal adenopathy Molecular testing requested: previous cancer history and treatment: breast; suspected tumor type: breast Gross Description: Received in formalin labelled with proper patient identification (initials O, K) and not otherwise specified are multiple brown tissues measuring 1.5 x 1.0 x 0.2 cm in aggregate. Entirely submitted in 1. Danita Andrade 11/06/2016 11 :41 AM ESTROGEN AND PROGESTERONE RECEPTOR IMMUNOPEROXIDASE STAINS Date Ordered: 11/11/2016 Status: Signed Out Date Complete: 11/11/2016 By: Racheal Arce Date Reported: 11/12/2016 Interpretation LYMPH NODE, SUBCARINAL, STATION 7, NEEDLE CORE BIOPSY: - Metastatic adenocarcinoma, consistent with breast primary. - Positive for estrogen receptors (in greater than 90]% of tumor cells). - Nuclear staining intensity: Strong. - Positive for progesterone receptors (in 2% of tumor cells). - Nuclear staining intensity: Weak to moderate. Comment Cold ischemic time and total formalin fixation time appropriate: Yes. (Dr. Bowen)/samia Description Tissue submitted: Paraffin embedded tissue block labelled [id number] (1) from [facility] Immunohistochemical assays for estrogen receptors (SP1, [place]) and progesterone receptors (16, Leica) have been performed on this specimen. Intranu clear receptor complexes were visualized on tissue sections [...] with estrogen receptor modulators such as Tamoxifen. (Dr. Bowen)/samia Reference: ASCO-CAP Guideline Recommendations for IHC testing of ER and WI. J Clin Oncol 2010;28:5147-4065. NOTE: One or more of the reagents used in immunohistochemical testing in this case may not have been cleared or approved by the U.S. Food and Drug Administration (FDA). The FDA has determined that such clearance or approval is not necessary. These tests are used for clinical purposes. They should not be rega rded as investigational or for research. These reagents' performance characteristics have been determined by [facility]. This laboratory is certified under the Clinical Laboratory Improvement Amendments of 1988 (CLIA-88) as qualified to perform high complexity clinical laboratory testing. Document reviewed and electronically signed by: VIRGIL BOWEN MD Report date: 11/12/2016 By the signature above, the attending physician certifies that he/she has personally conducted a gross and/or microscopic examination of the described specimens and rendered or confirmed the above diagnosis. Her 2 IMMUNOPEROXIDASE REPORT Date Ordered: 11/12/2016 Status: Signed Out Date Complete: 11/12/2016 By: Racheal Arce Date Reported: 11/12/2016 Interpretation ASSAY RESULTS Her2 SCORE: 1+ TUMOR LOCATION: Lymph node, subcarinal, station 7 COLD ISCHEMIC TIME AND TOTAL FORMALIN F IXATIVE TIME APPROPRIATE: Yes CELLS WITH COMPLETE MEMBRANE STAINING: None MEMBRANE STAINING INTENSITY: Faint PARTIAL MEMBRANE STAINING: Present in 20% of cells CYTOPLASMIC STAINING: Faint to moderate STAINING PATTERN: Heterogeneous STAINING IN BENIGN EPITHELIUM: N/A THE HER2 ASSAY PERFORMED IS INTERPRETED NEGATIVE. Comment An additional test for Her2 gene amplification will be performed by in situ hybridization (ANNE MARIE), the results of which will be issued in a separate report. (Dr. Hinson)/samia Description Tissue submitted: Paraffin embedded tissue block labelled [id number] (1) from [facility] Fixative: Formalin (This immunohistochemical assay is intended for paraffin-embedded tissue fixed in 10% neutral buffered formalin for 6-72 hours; 18-24 hours with maximum tissue thickness of 3-4 millimeters is recommended for best assay performance. Her2 should not be performed on alcohol fixed tissues.) The assay was performed und er appropriate conditions according to the handbag designer's instructions with appropriate assay and tissue controls using an Anti-Her2 (4B5) Rabbit Monoclonal Antibody (Craigmont). Her2 IHC Scoring Guidelines (invasive tumor component [...] 2013) Document reviewed and electronically signed by: GEO HINSON MD Report date: 11/12/2016 By the signature above, the attending physician certifies that he/she has personally conducted a gross and/or microscopic examination of the described specimens and rendered or confirm ed the above diagnosis. Her2 GENE AMPLIFICATION BY IN-SITU HYBRIDIZATION (ANNE MARIE) Date Ordered: 11/12/2016 Status: Signed Out Date Complete: 11/12/2016 By: Racheal Arce Date Reported: 11/12/2016 Interpretation Description Tissue submitted: Paraffin embedded tissue block labelled [id number] (1) from [facility] Specimen type: Lymph node core biopsy An in-situ hybridization (ANNE MARIE) assay for Her2 gene amplification status ([employer] INFORM dual ANNE MARIE DNA probe) was performed on this specimen. The assay was performed under appropriate conditions according to the handbag designer's instructions with appropriate assay and tissue controls. A Her2 target probe and a Chromosome 17 control probe are both enumerated in twenty tumor cell nuclei and a Her2/Chr17 ratio is calculated. Results are generally reported as amplified (ratio >2.0) or non-amplified (ratio <2.0). When initial results are inconcl usive (ratio 1.9 2.2), an minimum additional 20 nuclei are enumerated. Her2 and Chr17 average signals per cell and the Her2/Chr17 ratio are considered for the final interpretation. The assay is intended for use with formalin-fixed (6-72 hours), paraffin-embedded breast cancer specimens. Reference: ASCO-CAP Recommendations for Her2 Testing. J Clin Oncol 2013; epub (www.jco.org Mar 19, 2013) Results: Her2/Chr17 ratio: 1.13 Average Her2 signals per tumor cell nucleus: 2.2 Average Chr17 signals per tumor cell nucleus: 2.0 Tumor location: Lymph node, subcarinal, station 7 Interpretation: Non-amplified The invasive tumor nuclei have no evidence of Her2 gene amplification. The results suggest the tumor has two copies of chromosome 17 with a normal Her2 gene copy number. (Dr. Hinson)/samia Document reviewed and electronically signed by: GEO HINSON MD Report date: 11/12/2016 By the signature above, the attending ph ysician certifies that he/she has personally conducted a gross and/or microscopic examination of the described specimens and rendered or confirmed the above diagnosis. End of Report ASSESSMENT: Ms Bernstein is a 56-year-old female who has a skin recurrence after being diagnosed with ductal carcinoma in situ in 2003. She had a positive margin but declined XRT and antiestrogentherapy. The skin recurence was ER+ 80%, WI+ 20%, HER2 negative. Staging workup identified enlargedmediastinal lymph nodes and bilateral small lung nodules. Mediastinal lymph node biopsy was identified breast cancer consistent with her invasive breast cancer associated with the right breast implant. Other staging workup was negative. Her volume of disease is small. The right breast soft tissue mass does not involve the skin. Given that she has estrogen receptor positive metastatic disease thathas not been treated, initial therapy would be letrozole plus palbociclib. She started letrozole 2 days ago and will start her palbociclib on Tuesday. We presented her case at tumor board today. It was agreed that surgery was not indicated however would be considered in the future in particular if her skin involvement progresses. Also prior to any consideration of surgery other than in the palliative setting we would need to know that we have good control of her disease. 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 As a result she needs no additional screening nor does her family needed further testing. PLAN: 1. continue letrozole 2.5 mg daily. Initiate palbociclib 125mg daily. This will be provided daily 21 out of 28 days. 2. Check CBC and differential every week and adjust palbociclib doses as needed. 3. Obtain a bone density scan at a future visit 4. Would repeat scans to assess response to therapy in 3-4 months 5. Follow-up return in one month Patient is encouraged call with any intercurrent concerns or problems. The patient and her family asked appropriate questions. We answered their questions. We appreciate being involved in her care. ?? Augustina Colin MD 11/18/2016 15:38 documented in this encounter Plan of Treatment Upcoming Encounters Date Type Department Care Team (Late st Contact Info) Description 04/02/2024 10:30 EDT Appointment [facility] Interventional Radiology Unit [address] [place] [id number] 04/02/2024 15:15 EDT Office Visit [facility] Surgical Oncology - [address] [id number] Adolfo Carreno MD [address] [facility], [address] [place] [phone] 04/05/2024 9:30 EDT Telemedicine [facility] Palliative Care Services [address] [place] [address] [id number] Chichi Woods MD [address] [place] [phone] 04/11/2024 15:00 EDT Telemedicine [facility] Hematology & Oncology [address] [address] Alisson Carreon MD [address] [place] [address], [address] [place] [phone] 04/13/2024 13:30 EDT Appointment [facility] Hematology & Oncology [address] [id number] 04/13/2024 14:00 EDT Appointment [facility] Hematology & Oncology [address] [address] 04/16/2024 10:00 EST Telemedicine [facility] - [facility] [address] [place] [address] [id number] Chichi Woods MD [address] [place] [address] [phone] 04/24/2024 9:00 EST Appointment [facility] Radiology CT Outpatient - [address] [id number] 04/24/2024 11:00 EST Appointment [facility] Breast Imaging - [address] [id number] 04/27/2024 12:00 EST Appointment [facility] Hematology & Oncology - [address] [id number] 05/02/2024 15:00 EST Telemedicine [facility] Hematology & Oncology - [address] [phone] Alisson Carreon MD [address] [facility], [address] [place] [phone] 05/04/2024 10:15 EST Ancillary Procedure [facility] Cardiology - [address] [place], [place] [phone] 05/04/2024 11:30 EST Appointment [facility] Hematology & Oncology - [facility] [address] [place], [place] [phone] 05/04/2024 12:00 EST Appointment [facility] Hematology & Oncology [address] [phone] 06/12/2024 13:00 EST Appointment [facility] Radiology CT - [facility] [address] [place], [place] [phone] documented as of this encounter Results * DXA-DUAL XRAY ABSORPTIOMETRY FOR BONE DENSITY (12/13/2016 11:29 EDT) DEXA Bone Density [facility] DEXA Bone Density, External [facility] Anatomical Region Laterality Modality Other 12/13/2016 11:2 9 EDT Augustina Colin MD PhD IMG DEXA ORDERABLES documented in this encounter Visit Diagnoses Diagnosis Metastatic breast cancer- Primary documented in this encounter Care Teams Emergency Management Director Relationship Specialty Start Date End Date Ramses Blancas MD [facility] [address] [place] [address] PCP - General 01/06/11 documented as of this encounter
--- OUTSIDE RECORDS SUMMARY | 2024-03-20 15:09 | XMS_ITS | Encounter Summary ---
Author Organization [facility] Address [address] [place] [address] Care Team Providers Care Track Man Name Role Phone Linda Blancas MD Primary Care Provider [phone] Reason for Visit * Reason Onset Date Comments Results 11/19/2016 Encounter Details Date Type Department Care Team (Late st Contact Info) Description 11/19/2016 Telephone [facility] Cancer Center Hematology & Oncology - [facility] [address], [place] [id number] Anel Vila, MS [address] [place], [place] [id number] Results Social History Tobacco Use Types Packs/Day [...] encounter Miscellaneous Notes * Telephone Encounter - Anel Vila S - 11/19/2016 1327 EDT Tried calling multiple times, no space left on voicemail. Relayed genetic test results to Dr. Colin, whom she had an appointment with, who told her the results. I mailed the results with a note to call with questions. Detailed letter to follow. documented in this encounter Plan of Treatment Upcoming Encounters Date Type Department Care Team (Late st Contact Info) Description 04/02/2024 10:[address] [facility] Interventional Radiology Unit [address] [place] [address] [phone] 04/02/2024 15:15 EDT Office Visit [facility] Surgical Oncology - [address] [phone] Adolfo Carreno MD [address] [place] [address] 2 [place] [phone] 04/05/2024 9:30 EDT Telemedicine [facility] - [facility] Palliative Care Services [address] [place] [address] [phone] Chichi Woods MD [address] [place] [address] [phone] 04/11/2024 15:00 EDT Telemedicine [facility] Hematology & Oncology - [address] 142131 Alisson Carreon MD [address] [place] [address] 2 [place] [phone] 04/13/2024 13:30 EDT Appointment [facility] Hematology & Oncology - [address] [phone] 04/13/2024 14:00 EDT Appointment [facility] Hematology & Oncology - [address] [phone] 04/16/2024 10:00 EST Telemedicine [facility] - [facility] Palliative Care Services [address] [place], [place] 054[address] Chichi Woods MD [address] [facility], [address] [phone] 04/24/2024 9:00 EST Appointment [facility] Radiology CT Outpatient - [address] 161371 04/24/2024 11:[address] [facility] Breast Imaging - [address] [phone] 04/27/2024 12:00 EST Appointment [facility] Hematology & Oncology - [address] 470751 05/02/2024 15:00 EST Telemedicine [facility] Hematology & Oncology - [address] 247551 Alisson Carreon MD [address] [place] [address], [facility] [address] [place] [phone] 05/04/2024 10:15 EST Ancillary Procedure [facility] Cardiology - [place] [address] 05/04/2024 11:30 EST Appointment [facility] Hematology & Oncology - [address] [phone] 05/04/2024 12:00 EST Appointment [facility] Hematology & Oncology - [address] [address] 06/12/2024 13:00 EST Appointment [facility] Radiology CT - [address] [address] documented as of this encounter Visit Diagnoses Not on filedocumented in this encounter Care Teams Track Man Relationship Specialty Start Date End Date Linda Blancas MD [address] [place] [address] PCP - General 01/06/11 documented as of this encounter
--- OUTSIDE RECORDS SUMMARY | 2024-03-20 15:09 | XMS_ITS | Encounter Summary ---
Author Organization [facility] Address [address] [place] [address] Care Team Providers Care Social Services Designee Name Role Phone Linda Blancas MD Primary Care Provider [phone] Reason for Visit * Reason Onset Date Comments Chemotherapy Education 11/18/2016 Encounter Details Date Type Department Care Team (Late st Contact Info) Description 11/18/2016 Telephone [facility] Cancer Center Hematology & Oncology - [facility] [address] [place] [address] Quita Rob, SHELLEY Chemotherapy Education Social History Tobacco Use Types Packs/Day Years [...] Telephone Encounter - Quita Rob RN - 11/18/2016 1410 EDT Patient Education Topic: Ibrance Method: Handout and Verbal Taught to: Family and Patient Barriers: None Outcomes: independent and verbalized understanding Introductory chemotherapy education has been discussed with Ms Pleitez who presented to the clinic 11/17/16. Topics included the role of the primary nurse, contact information, the logistics of receiving chemotherapy, specific drug information including commonly reported side effects, self-care measures and signs/symptoms to report immediately. Pt is planning to start on Tuesday11/22/16 and will have labs drawn the following Tuesday. documented in this encounter Plan of Treatment Upcoming Encounters Date Type Department Care Team (Late st Contact Info) Description 04/02/2024 10:30 EDT Appointment [facility] Interventional Radiology Unit [address] [place] [address] [phone] 04/02/2024 15:15 EDT Office Visit [facility] Surgical Oncology - [address] [phone] Adolfo Carreno MD [address] [place] [address], [facility] [address] [place] [phone] 04/05/2024 9:30 EDT Telemedicine [facility] Palliative Care Services [address] [place] [address] 729331 Chichi Woods MD [address] [place] [address] [phone] 04/11/2024 15:00 EDT Telemedicine [facility] Hematology & Oncology - [address] [phone] Alisson Carreon MD [address] [place] [address], [facility] [address] [place] [phone] 04/13/2024 13:30 EDT Appointment [facility] Hematology & Oncology - [address] [phone] 04/13/2024 14:00 EDT Appointment [facility] Hematology & Oncology [address] [address] 04/16/2024 10:[address] [facility] - [facility] Palliative Care Services [address] [place] [address] [phone] Chichi Woods MD [address] [place] [address], [address] [phone] 04/24/2024 9:00 EST Appointment [facility] Radiology CT Outpatient - [address] 480251 04/24/2024 11:00 EST Appointment [facility] Breast Imaging - [facility] [address] [place], [place] 489461 04/27/2024 12:00 EST Appointment [facility] Hematology & Oncology [address] 097911 05/02/2024 15:00 EST Telemedicine [facility] Hematology & Oncology [address] 476021 Alisson Carreon MD [address] [place] [address], Level [address] [place] [phone] 05/04/2024 10:15 EST Ancillary Procedure [facility] Cardiology [place] [place] [address] 05/04/2024 11:30 EST Appointment [facility] Hematology & Oncology [address] 081031 05/04/2024 12:00 EST Appointment [facility] Hematology & Oncology [address] [phone] 06/12/2024 13:00 EST Appointment [facility] Radiology CT - Main [place] [address] [place], [place] 525[address] documented as of this encounter Visit Diagnoses Not on filedocumented in this encounter Care Teams Social Services Designee Relationship Specialty Start Date End Date Linda Blancas MD [facility] [address] [place] [address] PCP - General 01/06/11 documented as of this encounter
--- OUTSIDE RECORDS SUMMARY | 2024-03-20 15:09 | XMS_ITS | Encounter Summary ---
Author Organization [facility] Address [address] [place] [address] Care Team Providers Care Brim Welt Sewing Machine Operator Name Role Phone Linda Blancas MD Primary Care Provider [phone] Encounter Details Date Type Department Care Team (Late st Contact Info) Description 11/04/2016 Results Only [facility] Cancer Center Hematology & Oncology - [facility] [address] [place] [address] [place] [address] [place] [phone] Social History Tobacco Use Types Packs/Day Years [...] [facility] Interventional Radiology Unit [address] [place] [address] [phone] 04/02/2024 15:15 EDT Office Visit [facility] Surgical Oncology - [address] [address] Adolfo Carreno MD [address] [place] [address] [phone] 04/05/2024 9:30 EDT Telemedicine [facility] Palliative Care Services [address] [place] [address] [phone] Chichi Woods MD [address] [place] [address] [phone] 04/11/2024 15:00 EDT Telemedicine [facility] Hematology & Oncology - [address] [phone] Alisson Carreon MD [address] [place] [address] [phone] 04/13/2024 13:30 EDT Appointment [facility] Hematology & Oncology - [address] [address] 04/13/2024 14:00 EDT Appointment [facility] Hematology & Oncology - [address] [phone] 04/16/2024 10:00 EST Telemedicine [facility] Palliative Care Services [address] [place] [address] 965201 Chichi Woods MD [address] [place] [address] [phone] 04/24/2024 9:00 EST Appointment [facility] Radiology CT Outpatient - [address] [address] 04/24/2024 11:00 EST Appointment [facility] Breast Imaging - [facility] [address] [place] [address] 04/27/2024 12:00 EST Appointment [facility] Hematology & Oncology - [address] [address] 05/02/2024 15:00 EST Telemedicine [facility] Hematology & Oncology - [address] 152871 Alisson Carreon MD [address] [place] [address], Level [address] [place] [phone] 05/04/2024 10:15 EST Ancillary Procedure [facility] Cardiology - [address] [place] [address] 05/04/2024 11:30 EST Appointment [facility] Hematology & Oncology - [address] [address] 05/04/2024 12:00 EST Appointment [facility] Hematology & Oncology - [address] [address] 06/12/2024 13:00 EST Appointment [facility] Radiology CT - [address] [phone] documented as of this encounter Procedures Procedure Name Priority Date/Time Associated Diagnosis Comments REFERRAL TEST 1 Routine 11/04/2016 9:29 EDT documented in this encounter Results * REFERRAL TEST 1 (11/04/2016 9:29 EDT) Test Name BreastNext 11/04/2016 10:06 EDT [facility] Result See Pathology Scanned Report in PRISM. 11/17/2016 17:22 EDT [facility] Comment: Test performed by: Ayde Caro [place] Ref [facility] 11/04/2016 10:06 EDT [facility] Date Sample Shipped 11/04/2016 11/04/2016 10:06 EDT [facility] TOPOGRAPHY UNKNOWN / Unknown 11/04/2016 9:29 EDT 11/04/2016 10:01 EDT Annalisa Frey MD LAB INFO SERVICE AND SUPPORT & PHONE RESULT Performing Organization Address City/State/[facility] Co de Phone Number [facility] [address] [place] [address] documented in this encounter Visit Diagnoses Not on filedocumented in this encounter Care Teams Brim Welt Sewing Machine Operator Relationship Specialty Start Date End Date Linda Blancas MD [facility] [address] [place] [address] PCP - General 01/06/11 documented as of this encounter
--- OUTSIDE RECORDS SUMMARY | 2024-03-20 15:09 | XMS_ITS | Encounter Summary ---
Author Organization [facility] Address [address] [place] [address] Care Team Providers Care Allocations Clerk Name Role Phone Linda Blancas MD Primary Care Provider [phone] Reason for Visit * Reason Onset Date Comments Labs Only 11/24/2016 Medication Questions 11/24/2016 Encounter Details Date Type Department Care Team (Late st Contact Info) Description 11/24/2016 Telephone [facility] Cancer Center Hematology & Oncology - [address] [address] Augustina Colin MD PhD Labs Only; Medication Questions Social History Tobacco Use Types [...] Da te ondansetron (ZOFRAN-ODT) 8 mg disintegrating tabletIndications:Metastati c breast cancer,Chemotherapy induced nausea and vomiting Take 1 Tab by mouth every 8 hours as needed for Nausea. 30 Tab 2 11/24/2016 03/16/2017 documented in this encounter Miscellaneous Notes * Telephone Encounter - Quita Rob RN - 11/25/2016 1147 EDT Called and notified Ms Pleitez labs have been faxed to her PCP office to be drawn weekly for the first few cycles. Pt made aware a Ca27.29 was ordered as well. Ms Pleitez denies nausea, vomiting or diarrhea. Pt reports less frequent and peanut butter consistency stool. Ms Pleitez advised to use miralax if needed. Pt notified of prescription for zofran at [facility] is available to be picked up. Pt encouraged to call with any changes in her symptoms. * Telephone Encounter - Elma Browning - 11/24/2016 1600 EDT Reason for Call: Labs Only and Medication Questions Summary/Symptoms: Pt has questions about labs, are they weekly or every other week. She wants to have they done in [place] area not here. Pt was also told by Dr Colin that she would send a script for Zofran to [facility] in [place] and they do not have it. Please call Elma Browning 11/24/2016 16:00 documented in this encounter Plan of Treatment Upcoming Encounters Date Type Department Care Team (Late st Contact Info) Description 04/02/2024 10:30 EDT Appointment [facility] Interventional Radiology Unit [address] [place] [address] [phone] 04/02/2024 15:15 EDT Office Visit [facility] Surgical Oncology - [facility] [address] [place], [place] 2877[address] Adolfo Carreno MD 111 [facility] Level [address] [place] [phone] 04/05/2024 9:30 EDT Telemedicine [facility] Palliative Care Services [address] [place] [address] [phone] Chichi Woods MD [address] [place] [address] [phone] 04/11/2024 15:00 EDT Telemedicine [facility] Hematology & Oncology - [address] [phone] Alisson Carreon MD [address] [place] [address] 2 [place] [phone] 04/13/2024 13:30 EDT Appointment [facility] Hematology & Oncology - [address] [phone] 04/13/2024 14:00 EDT Appointment [facility] Hematology & Oncology [address] 735211 04/16/2024 10:00 EST Telemedicine [facility] Palliative Care Services [address] [place] [address] [phone] Chichi Woods MD [address] [place] [address] [phone] 04/24/2024 9:00 EST Appointment [facility] Radiology CT Outpatient - [address] 157231 04/24/2024 11:00 EST Appointment [facility] Breast Imaging - [address] [address] 04/27/2024 12:00 EST Appointment [facility] Hematology & Oncology - [address] [address] 05/02/2024 15:00 EST Telemedicine [facility] Hematology & Oncology [address] 428301 Alisson Carreon MD [address] [place] [address], Level [address] [place] [phone] 05/04/2024 10:15 EST Ancillary Procedure [facility] Cardiology - [address] [place] [address] 05/04/2024 11:30 EST Appointment [facility] Hematology & Oncology [address] [address] 05/04/2024 12:00 EST Appointment [facility] Hematology & Oncology [address] 392201 06/12/2024 13:00 EST Appointment [facility] Radiology CT - [address] 385491 documented as of this encounter Visit Diagnoses Diagnosis Metastatic breast cancer- Primary Chemotherapy induced nausea and vomiting Nausea with vomiting documented in this encounter Care Teams Allocations Clerk Relationship Specialty Start Date End Date Linda Blancas MD [facility] [address] [place] [address] PCP - General 01/06/11 documented as of this encounter
--- OUTSIDE RECORDS SUMMARY | 2024-03-20 15:09 | XMS_ITS | Encounter Summary ---
Author Organization [facility] Address [address] [place] [address] Care Team Providers Care Fabricator Artificial Breast Name Role Phone Linda Blancas MD Primary Care Provider [phone] Adolfo Carreno MD Unavailable [phone] Augustina Colin MD PhD Unavailable Unavailable Encounter Details Date Type Department Care Team (Late st Contact Info) Description 11/29/2016 Documentation Visit [facility] Cancer Center Hematology & Oncology - [facility] [address] [place] [address] Anel Vila, MS [address] [place], [place] [address] Social History Tobacco Use Types Packs/Day Years [...] as of this encounter Progress Notes * Anel Vila S - 11/29/2016 0000 EDT [facility]ER CENTER HEMATOLOGY AND ONCOLOGY November 29, 2016 Sunshineenma Pleitez [address] [place] [address] : 1960 Dear Sendy: We are writing to summarize the results of your genetic testing. We saw you and your , Nitish, in the Familial Cancer Program at the [facility] in [place], [place] on 11/04/2016. You were referred for genetic counseling to discuss options for genetic testing basedon your personal and family history of cancer. Following this discussion, you chose to undergo genetic testing for a panel of 17 genes. This testing was performed by [facility]. I tried to communicate these results to you by phone; however, your voice mail was full and I was unable to get through with you. Ultimately, Dr Augustina Colin disclosed these results to you. These results, as well as ourconclusions and recommendations are summarized below. 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 As we discussed, variants of uncertain significance have a higher likelihood of being benign findings, and at this time we do not recommend changing medical management, nor testing family members for these variants of uncertain significance. The remainder of the testing was normal, including JORY, BARD1, BRCA1, BRCA2, BRIP1, CDH1, CHEK2, MRE11A, MUTYH, NF1, PALB2, PTEN, RAD50, RAD51C, RAD51D, TP53. 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 You also were diagnosed with breast cancer at the age of 56. This was an infiltrating ductal carcinoma, nuclear grade 2, ER positive, TN positive, HER-2 negative for which you are currently undergoing treatment. You have no biological children. Your brother of esophageal cancer, which was diagnosed at the age of 58. He has 2 sons in their 30s. Yoursister is 49 and has no biological children. You have twin brothers, age 62, one of whom has no biological children and one of whom has twin daughters, age 25. You have a brother age 53 who has 3 daughters and 1 son. Your mother is 90. She had a brother who at the age of 51 of bladder cancer, which was diagnosed at the age of 49. Your mother has a sister and 4 brothers with no cancer, nor is there any cancerin cousins on your mother's side of the family. Your mother's mother lived to age 70. Your mother'sfather lived to age 72. Ancestry on the maternal side of the family is [place]ian and [place]ian. Her father lived to age 87. He had a sister who in her 80s and was diagnosed with breast cancer in her 30s, for which she underwent a bilateral mastectomy. Your father's 2 full brothers have . Your father's mother lived to age 80, your father's father lived to age 85. Your father had 4 paternal half-siblings, 3 half-sisters and 1 half-brother, who have . There is no cancer in them or any cousins on your father's side of the family. Ancestry on your father's side of the family is [place], with potentially a tiny bit of Hinduism heritage. As noted above, the results of genetic testing identified the variant of uncertain significance in the NBN, but no pathogenic (positive) mutations in any of the genes we analyzed. A copy of your results has been sent to you separately. Possible explanations for your results include: 1. It is possible a family member had a mutation that you did not inherit; however, we have no way of knowing if your father's sister who had breast cancer in her 30s carried a mutation. 2. It is possible you carry a mutation in a different cancer susceptibility gene. However, we have analyzed a large panel of genes at this time and have no further testing to offer. Please keep us informed if your personal or family history changes over time, and as new genes are discovered, this may change our assessment. 3. It is possible your history of cancer is not due to 1 single gene mutation, but a combination ofmany factors interacting together. Possible interacting factors may include multiple genetic, environmental and/or hormonal factors. Your genetic test results are considered inconclusive; therefore, we must base future cancer risks on your family history. Your family history of breast cancer is in a 2nd-degree relative (your father's sister) diagnosed in her 30s and therefore your risk of developing another breast cancer may be above average. We therefore recommend that your breast cancer screening include; practicing breast self-awareness, twice yearly clinical self-breast exams and yearly mammograms. Screening breast MRI is recommended for women with greater than 20% risk and you may wish to discuss the option of adding screening breast MRI to your regimen with your providers. With regards to ovarian cancer, your risk is likely average, that is 1% to 2% over your lifetime, and no screening is recommended for women ofaverage risk. With regards to other cancers, you would be considered at average risk and we recommend you follow the [place] [employer] recommendations for cancer screening. I would encourage you to participate in the PROMPT registry, which will collect information about your personal history, family history, and genetic information, and contribute to research going forward. Information can be found at www.promptstudy.org. A second registry is called AQUA PURE and can be found at www.inheritedcancer.net. It was a pleasure to meet with you. We hope our discussions were helpful. If you have any questions, please do not hesitate to contact our office. My direct line is [phone]. Sincerely, Anel Vila MS 09 49 AM - Anel Vila, [place] mn Dictation ID: [id number] cc: Francisco Javier Garland MD, [facility] Surgery [address] [place] [address] Linda Blancas MD, [place] [address] Augustina Colin MD, [facility] - Hematology Oncology [address] [place] [address] Adolfo Carreno MD, [facility] - Breast Care Program [address] [place] [address] The Patient documented in this encounter Plan of Treatment Upcoming Encounters Date Type Department Care Team (Late st Contact Info) Description 04/02/2024 10:30 EDT Appointment [facility] Interventional Radiology Unit [address] [place] [address] 04/02/2024 15:15 EDT Office Visit [facility] Surgical Oncology - [address] [phone] Adolfo Carreno MD [address] [place] [address] 2 [place] [phone] 04/05/2024 9:30 EDT Telemedicine [facility] Palliative Care Services [address] [place] [address] 978131 Chichi Woods MD [address] [place] [address] [phone] 04/11/2024 15:00 EDT Telemedicine [facility] Hematology & Oncology - [address] [address] Alisson Carreon MD [address] [place] [address] [phone] 04/13/2024 13:30 EDT Appointment [facility] Hematology & Oncology - [address] [id number] 04/13/2024 14:00 EDT Appointment [facility] Hematology & Oncology - [address] [address] 04/16/2024 10:00 EST Telemedicine [facility] Palliative Care Services [address] [place] [address] [phone] Chichi Woods MD [address] [place] [address] [phone] 04/24/2024 9:00 EST Appointment [facility] Radiology CT Outpatient - [address] [id number] 04/24/2024 11:00 EST Appointment [facility] Breast Imaging - [facility] [address] [place] [address] [place], [place] [address] 04/27/2024 12:00 EST Appointment [facility] Hematology & Oncology - [address] [address] 05/02/2024 15:00 EST Telemedicine [facility] Hematology & Oncology - [address] [address] Alisson Carreon MD [address] [place] [address], Level [address] [place] [phone] 05/04/2024 10:15 EST Ancillary Procedure [facility] Cardiology - [address] [place] [address] 05/04/2024 11:30 EST Appointment [facility] Hematology & Oncology - [address] [address] 05/04/2024 12:00 EST Appointment [facility] Hematology & Oncology - [address] 678171 06/12/2024 13:00 EST Appointment [facility] Radiology CT - [address] 484951 documented as of this encounter Visit Diagnoses Not on filedocumented in this encounter Additional Health Concerns Infection Onset Date Last Indicated Resolved Time R/O COVID-19 12/12/2023 12/12/2023 12/12/2023 15:3 5 EDT R/O COVID-19 01/08/2024 01/08/2024 01/08/2024 18:2 6 EDT R/O COVID-19 01/16/2024 01/16/2024 01/16/2024 17:5 0 EDT documented as of this encounter Care Teams Fabricator Artificial Breast Relationship Specialty Start Date End Date Linda Blancas MD [facility] [address] [place] [address] PCP - General 01/06/11 Adolfo Carreno MD [address] [place] [address] [phone] General Surgery 04/26/19 Augustina Colin MD PhD [address] [place] [phone] Medical Oncology 04/26/19 documented as of this encounter
--- OUTSIDE RECORDS SUMMARY | 2024-03-20 15:09 | XMS_ITS | Encounter Summary ---
Author Organization [facility] Address [address] [place] [address] Care Team Providers Care Payroll Accounting Specialist Name Role Phone Linda Blancas MD Primary Care Provider [phone] Reason for Visit * Reason Onset Date Comments Appointment Related 11/24/2016 Encounter Details Date Type Department Care Team (Late st Contact Info) Description 11/24/[address] [facility] Cancer Center Hematology & Oncology - [facility] [address] [place] [address] Augustina Colin MD PhD Appointment Related Social [...] * Telephone Encounter - Basilia Webb - 11/25/2016 0937 EDT Scheduled apt with Dr. Colin for 12/15/16 at 230pm for lab draw and 315pm with Dr. Colin. Patient agreed and is aware * Telephone Encounter - Elma Browning - 11/24/2016 1557 EDT Reason for Call: Appointment Related Summary/Symptoms: Pt calling to schedule furRaffy Browning 11/24/2016 15:57 documented in this encounter Plan of Treatment Upcoming Encounters Date Type Department Care Team (Late st Contact Info) Description 04/02/2024 10:30 EDT Appointment [facility] Interventional Radiology Unit [address] [place] [address] [phone] 04/02/2024 15:15 EDT Office Visit [facility] Surgical Oncology - [address] [phone] Adolfo Carreno MD [address] [place] [address] 2 [place] [phone] 04/05/2024 9:30 EDT Telemedicine [facility] - [facility] Palliative Care Services [address] [place], [place] [address] Chichi Woods MD [address] [place] [address] [phone] 04/11/2024 15:00 EDT Telemedicine [facility] Hematology & Oncology - [address] [phone] lAisson Carreon MD [address] [place] [address] 2 [place] [phone] 04/13/2024 13:30 EDT Appointment [facility] Hematology & Oncology - [address] [phone] 04/13/2024 14:00 EDT Appointment [facility] Hematology & Oncology [address] 298251 04/16/2024 10:00 EST Telemedicine [facility] - [facility] Palliative Care Services [address] [place] [address] [phone] Chichi Woods MD [address] [place] [address], [address] [phone] 04/24/2024 9:00 EST Appointment [facility] Radiology CT Outpatient - [address] [id number] 04/24/2024 11:00 EST Appointment [facility] Breast Imaging - [facility] [address] [place] [address] [place], [place] [address] 04/27/2024 12:00 EST Appointment [facility] Hematology & Oncology - [address] 209661 05/02/2024 15:00 EST Telemedicine [facility] Hematology & Oncology [address] [phone] Alisson Carreon MD [address] [place] [address], [facility], Level 2 [place] [phone] 05/04/2024 10:15 EST Ancillary Procedure [facility] Cardiology - [place] [address] 05/04/2024 11:30 EST Appointment [facility] Hematology & Oncology [address] 118211 05/04/2024 12:00 EST Appointment [facility] Hematology & Oncology - [address] 162311 06/12/2024 13:00 EST Appointment [facility] Radiology CT - Main [address] [phone] documented as of this encounter Visit Diagnoses Not on filedocumented in this encounter Care Teams Payroll Accounting Specialist Relationship Specialty Start Date End Date Linda Blancas MD [facility] [address] [place] [address] PCP - General 01/06/11 documented as of this encounter
--- OUTSIDE RECORDS SUMMARY | 2024-03-20 15:09 | XMS_ITS | Encounter Summary ---
Author Organization [facility] Address [address] [place] [address] Care Team Providers Care Home Health Billing Specialist Name Role Phone Linda Blancas MD Primary Care Provider Reason for Visit * Reason Onset Date Comments Medications Refill 11/05/2016 Encounter Details Date Type Department Care Team (Late st Contact Info) Description 11/05/2016 Refill [facility] Cancer Center Hematology & Oncology - [facility] [address] [place] [address] Quita Rob RN Medications Refill Social History [...] No 11/01/2016 documented as of this encounter Ordered Prescriptions Prescription Sig Dispensed Refills Start Date End Da te letrozole (FEMARA) 2.5 mg tabletIndications:Personal history of malignant neoplasm of breast,Breast lump Take 1 Tab by mouth daily. 90 Tab 11/05/2016 01/20/2017 documented in this encounter Miscellaneous Notes * Telephone Encounter - Quita Rob RN - 11/05/2016 1653 EDT Prescription for letrozole processed through [facility] per Dr Colin. documented in this encounter Plan of Treatment Upcoming Encounters Date Type Department Care Team (Late st Contact Info) Description 04/02/2024 10:30 EDT Appointment [facility] Interventional Radiology Unit [address] [place] [address] [phone] 04/02/2024 15:15 EDT Office Visit [facility] Surgical Oncology - [address] 113211 Adolfo Carreno MD [address] [place] [address] 2 [place] [phone] 04/05/2024 9:30 EDT Telemedicine [facility] - [facility] Palliative Care Services [address] [place] [address] [phone] Chichi Woods MD [address] [place] [address] [phone] 04/11/2024 15:00 EDT Telemedicine [facility] Hematology & Oncology - [address] [phone] Alisson Carreon MD [address] [place] [address] [phone] 04/13/2024 13:30 EDT Appointment [facility] Hematology & Oncology [address] 270101 04/13/2024 14:00 EDT Appointment [facility] Hematology & Oncology - [address] 156931 04/16/2024 10:00 EST Telemedicine [facility] - [facility] Palliative Care Services [address] [place], [place] 0769[address] Chichi Woods MD 111 [facility], [address] [phone] 04/24/2024 9:00 EST Appointment [facility] Radiology CT Outpatient - [address] 062651 04/24/2024 11:00 EST Appointment [facility] Breast Imaging - [address] 787221 04/27/2024 12:00 EST Appointment [facility] Hematology & Oncology - [address] [phone] 05/02/2024 15:00 EST Telemedicine [facility] Hematology & Oncology - [address] [phone] Alisson Carreon MD [address] [place] [address], Level 2 [place] [phone] 05/04/2024 10:15 EST Ancillary Procedure [facility] Cardiology [place] [place] [address] 05/04/2024 11:30 EST Appointment [facility] Hematology & Oncology - [address] [phone] 05/04/2024 12:00 EST Appointment [facility] Hematology & Oncology - [address] [phone] 06/12/2024 13:00 EST Appointment [facility] Radiology CT - [address] [address] documented as of this encounter Visit Diagnoses Diagnosis Personal history of malignant neoplasm of breast- Primary Breast lump Lump or mass in breast documented in this encounter Care Teams Home Health Billing Specialist Relationship Specialty Start Date End Date Linda Blancas MD [facility] [address] [place] [address] PCP - General 01/06/11 documented as of this encounter
--- OUTSIDE RECORDS SUMMARY | 2024-03-20 15:09 | XMS_ITS | Encounter Summary ---
Author Organization [facility] Address [address] [place] [address] Care Team Providers Care Receptionist Name Role Phone Linda Blancas MD Primary Care Provider [phone] Reason for Visit * Reason Onset Date Comments Follow-up 11/22/2016 Encounter Details Date Type Department Care Team (Late st Contact Info) Description 11/22/2016 Telephone [facility] Cancer Center Hematology & Oncology - [facility] [address] [place] [address] Augustina Colin MD PhD Follow-up Social History [...] encounter Miscellaneous Notes * Telephone Encounter - Augustina Colin MD - 11/22/2016 0935 EDT Patient called about results of discussion from breast tumor board on 11/18/16. Patient's telephone mailbox was full and I was unable to leave a message. documented in this encounter Plan of Treatment Upcoming Encounters Date Type Department Care Team (Late st Contact Info) Description 04/02/2024 10:30 EDT Appointment [facility] Interventional Radiology Unit [address] [place] [phone] 04/02/2024 15:15 EDT Office Visit [facility] Surgical Oncology - [address] [phone] Adolfo Carreno MD [address] [place] [address] [phone] 04/05/2024 9:30 EDT Telemedicine [facility] - [facility] Palliative Care Services [address] [place] [address] 500331 Chichi Woods MD [address] [place] [address] [phone] 04/11/2024 15:[address] [facility] Hematology & Oncology [address] [phone] Alisson Carreon MD [address] [place] [address] [phone] 04/13/2024 13:[address] [facility] Hematology & Oncology [address] 760551 04/13/2024 14:[address] [facility] Hematology & Oncology [address] 810741 04/16/2024 10:00 EST Telemedicine [facility] - [facility] Palliative Care Services [address] [place] [address] [phone] Chichi Woods MD 111 [facility], [address] [place] [phone] 04/24/2024 9:00 EST Appointment [facility] Radiology CT Outpatient - [address] [id number] 04/24/2024 11:00 EST Appointment [facility] Breast Imaging - [facility] S [place] 1 [place], [place] [address]951 04/27/2024 12:[address] [facility] Hematology & Oncology - [address] 735561 05/02/2024 15:[address] [facility] Hematology & Oncology - [address] 498211 Alisson Carreon MD [address] [place] [address], Level [address] [place] [phone] 05/04/2024 10:15 EST Ancillary Procedure [facility] Cardiology - [address] [place], [place] [phone] 05/04/2024 11:[address] [facility] Hematology & Oncology - [address] [phone] 05/04/2024 12:[address] [facility] Hematology & Oncology [address] [phone] 06/12/2024 13:00 EST Appointment [facility] Radiology CT - [address] [phone] documented as of this encounter Visit Diagnoses Not on filedocumented in this encounter Care Teams Receptionist Relationship Specialty Start Date End Date Linda Blancas MD [address] [place] [address] PCP - General 01/06/11 documented as of this encounter
--- OUTSIDE RECORDS SUMMARY | 2024-03-20 15:09 | XMS_ITS | Encounter Summary ---
Author Organization [facility] Address [address] [place] [address] Care Team Providers Care Binding Cutter Name Role Phone Linda Blancas MD Primary Care Provider [phone] Encounter Details Date Type Department Care Team (Late st Contact Info) Description 11/18/2016 Documentation Visit [facility] Surgical Oncology - [address] [place] [address] [place] [address] Augustina Colin MD PhD Social History Tobacco [...] as of this encounter Progress Notes * Maria Fernanda Pablo - 11/18/2016 4088 EDT Patient was presented at tumor board. documented in this encounter Plan of Treatment Upcoming Encounters Date Type Department Care Team (Late st Contact Info) Description 04/02/2024 10:30 EDT Appointment [facility] Interventional Radiology Unit [address] [place] [address] [phone] 04/02/2024 15:15 EDT Office Visit [facility] Surgical Oncology - [address] [phone] Adolfo Carreno MD [address] [place] [address] [phone] 04/05/2024 9:30 EDT Telemedicine [facility] Palliative Care Services [address] [place] [address] [phone] Chichi Woods MD [address] [place] [address] [phone] 04/11/2024 15:00 EDT Telemedicine [facility] Hematology & Oncology - [address] [phone] Alisson Carreon MD [address] [place] [address] [phone] 04/13/2024 13:30 EDT Appointment [facility] Hematology & Oncology [address] 940331 04/13/2024 14:00 EDT Appointment [facility] Hematology & Oncology [address] [phone] 04/16/2024 10:00 EST Telemedicine [facility] Palliative Care Services [address] [place] [address] [phone] Chichi Woods MD [address] [place] [address] [phone] 04/24/2024 9:[address] [facility] Radiology CT Outpatient - [address] [id number] 04/24/2024 11:00 EST Appointment [facility] Breast Imaging - [facility] [address] [place], [place] [phone] 04/27/2024 12:00 EST Appointment [facility] Hematology & Oncology - [address] [phone] 05/02/2024 15:00 EST Telemedicine [facility] Hematology & Oncology [address] [phone] Alisson Carreon MD [address] [place] [address], Level 2 [place] [phone] 05/04/2024 10:15 EST Ancillary Procedure [facility] Cardiology - [place] [address] 05/04/2024 11:30 EST Appointment [facility] Hematology & Oncology - [address] [address] 05/04/2024 12:00 EST Appointment [facility] Hematology & Oncology [address] [phone] 06/12/2024 13:[address] [facility] Radiology CT - [address] [phone] documented as of this encounter Visit Diagnoses Not on filedocumented in this encounter Care Teams Binding Cutter Relationship Specialty Start Date End Date Linda Blancas MD [address] [place] [address] [address] [place] [address] PCP - General 01/06/11 documented as of this encounter
--- OUTSIDE RECORDS SUMMARY | 2024-03-20 15:09 | XMS_ITS | Encounter Summary ---
Author Organization [facility] Address [address] [place] [address] Care Team Providers Care Gleason Operator Name Role Phone Linda Blancas MD Primary Care Provider [phone] Reason for Visit * Reason Onset Date Comments Follow-up 11/19/2016 Encounter Details Date Type Department Care Team (Late st Contact Info) Description 11/19/2016 Telephone [facility] Hematology & Oncology - [facility] [address] [place] [address] Bambi Gaxiola, RN [address] [place] [address] Follow-up Social History Tobacco Use Types Packs/Day [...] Miscellaneous Notes * Telephone Encounter - Bambi Gaxiola, SHELLEY - 11/19/2016 0929 EDT Attempted to call patient per the request of Quita pablo nurse to ask patient to call [employer] to set up delivery for her ibrance. The only phone number in the system is not in service.Will update patient's nurse. documented in this encounter Plan of Treatment Upcoming Encounters Date Type Department Care Team (Late st Contact Info) Description 04/02/2024 10:30 EDT Appointment [facility] Interventional Radiology Unit [address] [place] [address] [phone] 04/02/2024 15:15 EDT Office Visit [facility] Surgical Oncology - [address] 505851 Adolfo Carreno MD [address] [place] [address] [phone] 04/05/2024 9:30 EDT Telemedicine [facility] Palliative Care Services [address] [place] [address] [phone] Chichi Woods MD [address] [place] [address] [phone] 04/11/2024 15:00 EDT Telemedicine [facility] Hematology & Oncology [address] 098911 Alisson Carreon MD [address] [place] [address] [phone] 04/13/2024 13:30 EDT Appointment [facility] Hematology & Oncology [address] [address] 04/13/2024 14:00 EDT Appointment [facility] Hematology & Oncology [address] [phone] 04/16/2024 10:00 EST Telemedicine [facility] - [facility] Palliative Care Services [address] [place] [address] [phone] Chichi Woods MD [address] [place] [address], [address] [phone] 04/24/2024 9:00 EST Appointment [facility] Radiology CT Outpatient - [address] [id number] 04/24/2024 11:00 EST Appointment [facility] Breast Imaging - [facility] [address] [place], [place] 178941 04/27/2024 12:00 EST Appointment [facility] Hematology & Oncology - [address] [phone] 05/02/2024 15:00 EST Telemedicine [facility] Hematology & Oncology - [address] 195241 Alisson Carreon MD [address] [place] [address], Level 2 [place] [phone] 05/04/2024 10:15 EST Ancillary Procedure [facility] Cardiology [place] [address] 05/04/2024 11:30 EST Appointment [facility] Hematology & Oncology - [address] [phone] 05/04/2024 12:00 EST Appointment [facility] Hematology & Oncology [address] [phone] 06/12/2024 13:00 EST Appointment [facility] Radiology CT - [address] [phone] documented as of this encounter Visit Diagnoses Not on filedocumented in this encounter Care Teams Gleason Operator Relationship Specialty Start Date End Date Linda Blancas MD [facility] [address] [place] [address] PCP - General 01/06/11 documented as of this encounter
--- OUTSIDE RECORDS SUMMARY | 2024-03-20 15:09 | XMS_ITS | Encounter Summary ---
Author Organization [facility] Address [address] [place] [address] Care Team Providers Care Stick Feeder Name Role Phone Linda Blancas MD Primary Care Provider [phone] Reason for Visit * Reason Onset Date Comments Labs Only 12/01/2016 Encounter Details Date Type Department Care Team (Late st Contact Info) Description 12/01/2016 Telephone [facility] Hematology & Oncology - [facility] [address] [place] [address] Quita Rob, RN Labs Only Social History [...] Telephone Encounter - Quita Rob RN - 12/01/2016 1119 EDT Ms Oconnorwest called and reviewed labs which were WNL. Pt advised to continue palbociclib therapy.Pt reports she does experience occasional loose stool. It has occurred up to three times per day. Pt notified she can take imodium as needed. Pt reports her appetite is good. Pt has noticed dizzinesswith position changes the past 2 days. Pt reports she has not been keeping up with her PO fluid intake. Pt will push fluids and call the clinic if dizziness doesn't improve. Pt also is experiencing fatigue but has accommodated this by sleeping more at night. Pt has been having headaches and taking ibuprofen with positive effect. Pt notified to contact the clinic with any new or worsening symptoms. Pt will have labs rechecked next Tuesday. documented in this encounter Plan of Treatment Upcoming Encounters Date Type Department Care Team (Late st Contact Info) Description 04/02/2024 10:30 EDT Appointment [facility] Interventional Radiology Unit [address] [place] [address] [phone] 04/02/2024 15:15 EDT Office Visit [facility] Surgical Oncology - [address] [phone] Adolfo Carreno MD [address] [place] [address] [phone] 04/05/2024 9:30 EDT Telemedicine [facility] - [facility] Palliative Care Services [address] [place] [address] [phone] Chichi Woods MD [address] [place] [address], [address] [phone] 04/11/2024 15:00 EDT Telemedicine [facility] Hematology & Oncology - [address] [phone] Alisson Carreon MD [address] [place] [address] [phone] 04/13/2024 13:30 EDT Appointment [facility] Hematology & Oncology [address] [phone] 04/13/2024 14:00 EDT Appointment [facility] Hematology & Oncology [address] [phone] 04/16/2024 10:00 EST Telemedicine [facility] - [facility] Palliative Care Services [address] [place] [address] [phone] Chichi Woods MD [address] [place] [address], [address] [phone] 04/24/2024 9:00 EST Appointment [facility] Radiology CT Outpatient - [address] [id number] 04/24/2024 11:00 EST Appointment [facility] Breast Imaging - [facility] [address] [place], [place] 405321 04/27/2024 12:00 EST Appointment [facility] Hematology & Oncology [address] 564031 05/02/2024 15:00 EST Telemedicine [facility] Hematology & Oncology - [address] [phone] Alisson Carreon MD [address] [place] [address], Level [address] [place] [phone] 05/04/2024 10:15 EST Ancillary Procedure [facility] Cardiology - [place] [address] 05/04/2024 11:30 EST Appointment [facility] Hematology & Oncology [address] 601237 [phone] 05/04/2024 12:00 EST Appointment [facility] Center Hematology & Oncology - [address] [address] 06/12/2024 13:00 EST Appointment [facility] Radiology CT - [facility] [address] [place] [address] documented as of this encounter Visit Diagnoses Not on filedocumented in this encounter Care Teams Stick Feeder Relationship Specialty Start Date End Date Linda Blancas MD [facility] [address] [place] [address] PCP - General 01/06/11 documented as of this encounter
--- OUTSIDE RECORDS SUMMARY | 2024-03-20 15:09 | XMS_ITS | Encounter Summary ---
Author Organization [facility] Address [address] [place] [address] Care Team Providers Care News Wire Photo Operator Name Role Phone Linda Blancas MD Primary Care Provider Reason for Visit * Reason Comments Genetic Evaluation * Consult (Routine) - Closed Specialty Diagnoses / Procedures Referred By Contac t Referred To Contact Cancer Genetics Diagnoses Personal history of malignant neoplasm of breast Augustina Colin MD PhD Referral ID Status Reason Start Date Expiration Date V isits Requested Visits Authorized [id number] Closed Specialty Services Required 11/01/2016 1 1 Encounter Details Date Type Department Care Team (Late st Contact Info) Description 11/04/2016 8:30 EDT Office Visit [facility] Hematology & Oncology - [facility] [address] [place] [address] Unknown, Provider, Anel Vila, MS [address] [place] [address] Encounter for genetic counseling (Primary Dx); Malignant neoplasm of female breast, unspecified laterality, unspecified site of breast; Family history of breast cancer Discharge Disposition: Auto [...] of unspecified site of right female breast-C50.911[ICD-10-CM] R93.8 Abnormal findings on diagnostic imaging of other specified body structures-R93.8[ICD-10-CM] documented in this encounter Discharge Disposition Disposition Code Departure Means Destination Auto Discharge documented in this encounter Progress Notes * Anel Vila - 11/04/2016 0830 EDT Note to be dictated by Anel Vila * Anel Vila - 11/04/2016 0000 EDT [facility] HEMATOLOGY AND ONCOLOGY November 04, 2016 Augustina Colin MD [facility] - Hematology Oncology [address] [place] [phone] RE: SUNSHINE SUBRAMANIAN : [address] Colin: Thank you for referring your patient, Sunshine Nesbitt, to the Familial Cancer Program to discuss options for genetic testing based on her personal and family history of cancer. Sendy was seen along with her , Nitish, on 11/04/2016. I reviewed Sendy's personal medical history as well freedom family history, discussed options for genetic testing as well as implications of any results. 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 Recently, at the age of 56 she was found to have an infiltrating ductal carcinoma, nuclear grade 2, ER positive, DE positive, HER-2 negative. It is her impression that this is considered a recurrence at this time and not a new primary. 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 She also has a history of GERD. Past Surgical History: Sendy had surgery for a lipoma in 2000, carpal tunnel syndrome in 2007 and aspine decompression/fusion L3/S1 in 2011. Menstrual History: Sendy began having menstrual periods at age 13. She has never been . As noted above, she underwent menopause at the age of 38 for premature ovarian failure and took oral hormone replacement therapy for 5 years. Social History: Sendy is . 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 She does not smoke cigarettes or drink alcohol. She does participate in regular exercise. Cancer screenings: Sendy engages in age-appropriate cancer screenings. Her uterus and ovaries are intact. She had a colonoscopy at age 51 and is on a 10- year followup. She reports nothing unusual about her skin or thyroid. Family History: A 4-generation pedigree was obtained. Sendy is 56 and has no biological children. Abrashu at the age of 58 of esophageal cancer and had 2 sons who are currently in their 30s. Asister is 49 and has no biological children. Her brother is 53 and has a son and 3 daughters. Sendyhas twin brothers who are 62, one of whom has no biological children, one of them has 25-year-old female twins. Sendy's mother is 90. A maternal uncle at the age of 51 of bladder cancer, which was diagnosedat the age of 49. Sendy's mother had a sister and 4 additional brothers, but no details are known about their health, nor that of their children. There are no known cancers. Sendy's mother's mother lived to age 70. Her mother's father lived to 72. Ancestry on the maternal side of the family is Khmer and Occitan. Sendy's father lived to 87. He had a full sister who in her 80s who was diagnosed with breast cancer in her 30s and had a bilateral mastectomy. Franca's father had 2 additional full brothers who are , but no details are known about their health. There is no known cancers in cousins on the paternal side of the family. Sendy's father's father lived to 85. Sendy's father's mother lived to80. Sendy's father had 4 paternal half-siblings, 3 half-sisters and a half-brother but no information is known about their health. Ancestry on the paternal side of the family is Occitan with potentially some Religion heritage. Assessment: I discussed with Sendy the possibility that inherited factors may be playing a role in the development of cancer in her family. Based on her history of cancer diagnosed at the age of 43, along with a paternal aunt's diagnosis of breast cancer in the 30s, we discussed the possibility of a mutation being present in a cancer susceptibility gene, such as BRCA1 or BRCA2. If Sendy was foundto carry a mutation in either of those genes, she would have an increased risk for developing another primary breast cancer as well as the risk for ovarian cancer, and this would change our options for screening and prevention. In addition, we talked to Sendy about options for additional genes suchas JORY, CHEK2, and PALB2 which would increase her risk for developing additional breast cancers, but likely no risk for ovarian cancer. We discussed the risks, benefits and limitations of Sendy undergoing a multi- gene panel to look at genes associated with hereditary cancer risk, such as the possibility of identifying a pathogenic mutation in a gene without established guidelines for screening, as well as the possibility of identifying a pathogenic mutation in a gene without established guidelines for screening. We also discussedthe possibility of finding a variant of uncertain significance. We discussed that if Sendy undergoes genetic testing and no mutations are identified, this is an inconclusive result for her family andfuture cancer risks are based on the family history of cancer. Plan: Following our discussion, Sendy proceeded to the lab where her blood was drawn and sent to [facility] for a 17 gene breast panel. Results will be available in approximately 3 weeks. I will contact Sendy by phone with her results. If any mutations are identified, we will have her return [facility]amil[facility] Cancer Program for further discussion of the implications of these results. Time: Sendy was seen face to face for a total time of 45 minutes with 100% of this time spent in face to face counseling. Anel Vila MS 12 10 PM - Anel Vila, MS kn Dictation ID: [id number] cc: Francisco Javier Garland MD, [facility] General Surgery [address] [place] [address] Linda Blancas MD, [facility] [address] [place] [address] Augustina Colin MD, [facility] - Hematology Oncology [address] [place] [address] Adolfo Carreno MD, [facility] - Breast Care Program [address] [place] [phone] documented in this encounter Plan of Treatment Upcoming Encounters Date Type Department Care Team (Late st Contact Info) Description 04/02/2024 10:30 EDT Appointment [facility] Interventional Radiology Unit [address] [place] [address] [phone] 04/02/2024 15:15 EDT Office Visit [facility] Surgical Oncology - [address] [phone] Adolfo Carreno MD [address] [place] [address] 2 [place] [phone] 04/05/2024 9:30 EDT Telemedicine [facility] Palliative Care Services [address] [place] [address] [phone] Chichi Woods MD [address] [place] [address], [address] [phone] 04/11/2024 15:00 EDT Telemedicine [facility] Hematology & Oncology - [address] [phone] Alisson Carreon MD [address] [place] [address] [phone] 04/13/2024 13:30 EDT Appointment [facility] Hematology & Oncology - [address] [phone] 04/13/2024 14:00 EDT Appointment [facility] Hematology & Oncology - [address] [address] 04/16/2024 10:00 EST Telemedicine [facility] - [facility] Palliative Care Services [address] [place] [address] [phone] Chichi Woods MD [address] [facility], [address] [phone] 04/24/2024 9:00 EST Appointment [facility] Radiology CT Outpatient - [address] [address] 04/24/2024 11:00 EST Appointment [facility] Breast Imaging - [facility] S [address] 487331 04/27/2024 12:00 EST Appointment [facility] Hematology & Oncology - [address] [phone] 05/02/2024 15:00 EST Telemedicine [facility] Hematology & Oncology [address] [phone] Alisson Carreon MD [address] [place] [address], Level 2 [place] [phone] 05/04/2024 10:15 EST Ancillary Procedure [facility] Cardiology [place] [address] 05/04/2024 11:30 EST Appointment [facility] Hematology & Oncology [address] [address] 05/04/2024 12:00 EST Appointment [facility] Hematology & Oncology - [address] [phone] 06/12/2024 13:00 [facility] Rad[facility] - [address] [address] documented as of this encounter Visit Diagnoses Diagnosis Encounter for genetic counseling- Primary Genetic counseling Malignant neoplasm of female breast, unspecified laterality, unspecified site of breast Family history of breast cancer Family history of malignant neoplasm of breast documented in this encounter Care Teams News Wire Photo Operator Relationship Specialty Start Date End Date Linda Blancas MD [address] [place] [address] PCP - General 01/06/11 documented as of this encounter
--- OUTSIDE RECORDS SUMMARY | 2024-03-20 15:09 | XMS_ITS | Encounter Summary ---
Author Organization [facility] Address [address] [place] [address] Care Team Providers Care Unix Engineer Name Role Phone Linda Blancas MD Primary Care Provider [phone] Reason for Referral * Consult (Routine) - Closed Specialty Diagnoses / Procedures Referred By Contac t Referred To Contact Diagnoses Malignant neoplasm of right female breast, unspecified site of breast Augustina Colin MD PhD Referral ID Status Reason Start Date Expiration Date V isits Requested Visits Authorized [id number] Closed Specialty Services Required 11/17/2016 1 1 Question Answer Insurance / Financial Yes Encounter Details Date Type Department Care Team (Late st Contact Info) Description 11/17/2016 Orders Only [facility] Surgical Oncology - Main [place] [address] [place] [address] Yoselin Rios, SHEL[place] [address] [place] [id number] Malignant neoplasm of right female breast, unspecified [...] No 11/17/2016 Cognitive Status Response Date of Assess ent Because of a physical, menta l, or emotional condition, does this person have serious difficulty concentrating, remembering, or making decisions? No 11/17/2016 documented as of this encounter Plan of Treatment Upcoming Encounters Date Type Department Care Team (Late st Contact Info) Description 04/02/2024 10:30 EDT Appointment [facility] Interventional Radiology Unit [address] [place] [address] [phone] 04/02/2024 15:15 EDT Office Visit [facility] Surgical Oncology - [address] [phone] Adolfo Carreno MD [address] [place] [address] [phone] 04/05/2024 9:[address] [facility] - [facility] Palliative Care Services [address] [place] [address] [phone] Chichi Woods MD [address] [place] [address] [phone] 04/11/2024 15:00 EDT Telemedicine [facility] Hematology & Oncology [address] [phone] Alisson Carreon MD [address] [place] [address] [phone] 04/13/2024 13:30 EDT Appointment [facility] Hematology & Oncology [address] [phone] 04/13/2024 14:00 EDT Appointment [facility] Hematology & Oncology [address] [phone] 04/16/2024 10:[address] [facility] - [facility] Palliative Care Services [address] [place] [address] [phone] Chichi Woods MD [address] [place] [address], [address] [phone] 04/24/2024 9:00 EST Appointment [facility] Radiology CT Outpatient - [address] [id number] 04/24/2024 11:00 EST Appointment [facility] Breast Imaging - [address] [phone] 04/27/2024 12:00 EST Appointment [facility] Hematology & Oncology - [address] [phone] 05/02/2024 15:00 EST Telemedicine [facility] Hematology & Oncology - [address] [address] Alisson Carreon MD [address] [place] [address], Level 2 [place] [phone] 05/04/2024 10:15 EST Ancillary Procedure [facility] Cardiology - [address] [place] [address] 05/04/2024 11:30 EST Appointment [facility] Hematology & Oncology - [address] [id number] 05/04/2024 12:00 EST Appointment [facility] Hematology & Oncology [address] [phone] 06/12/2024 13:00 EST Appointment [facility] Radiology CT - [address] [phone] Scheduled Referrals Name Type Priority Associated Diagnoses Orde r Schedule [facility] Outpatient Referral Routine Malignant neoplasm of right female breast, unspecified site of breast Ordered: 11/17/2016 documented as of this encounter Visit Diagnoses Diagnosis Malignant neoplasm of right female breast, unspecified site of breast- Primary documented in this encounter Care Teams Unix Engineer Relationship Specialty Start Date End Date Linda Blancas MD [address] [place] [address] PCP - General 01/06/11 documented as of this encounter
--- OUTSIDE RECORDS SUMMARY | 2024-03-20 15:09 | XMS_ITS | Encounter Summary ---
Author Organization [facility] Address [address] [place] [address] Care Team Providers Care Online Services Manager Name Role Phone Linda Blancas MD Primary Care Provider [phone] Reason for Visit * Reason Onset Date Comments Medication Questions 11/09/2016 Letrozole/I brance Encounter Details Date Type Department Care Team (Late st Contact Info) Description 11/09/2016 Telephone [facility] Hematology & Oncology - [address] [address] Augustina Colin MD PhD Medication Questions (Letrozole/Ibrance) Social History Tobacco Use Types Packs/Day Years [...] No 11/01/2016 documented as of this encounter Miscellaneous Notes * Telephone Encounter - Quita Rob RN - 11/09/2016 1614 EDT Ms Pleitez called with questions regarding starting letrozole and ibrance. Reviewed side effects from both the medications and how to take them. Pt notified that she can start the letrozole once it is received from the pharmacy. Pt reassured the ibrance won't be started until she meets with Dr Colin. Written information on letrozole and ibrance have been mailed to pt. Pt notified the insurance company has prior authorized the medication and it will need to go through a specialty pharmacy which is dictated by her insurance. Pt's questions have been answered in great detail. Ms Pleitezis interested in meeting with the secondary social studies teacher so a referral will be placed and comic writer will see ifQuita Calvin will be available when pt comes to her appointment. Pt notified frequent labs willneed to be performed while starting ibrance and a lab requisition will be faxed to pt's pcp office. * Telephone Encounter - Anna Henriquez - 11/09/2016 1542 EDT Reason for Call: Medication Questions (Letrozole/Ibrance) Summary/Symptoms: Patient calling in regards to instructions of her medications. She has not received them yet, but she would like to be prepared for when it comes and she picks up the other medication at the pharmacy. Patient would like to speak to Stephanie. Anna Henriquez 11/09/2016 15:46 documented in this encounter Plan of Treatment Upcoming Encounters Date Type Department Care Team (Late st Contact Info) Description 04/02/2024 10:30 EDT Appointment [facility] Interventional Radiology Unit [address] [place] [address] [phone] 04/02/2024 15:15 EDT Office Visit [facility] Surgical Oncology - [facility] [address] [place], [place] [phone] Adolfo Carreno MD [address] [facility], [address] [place] [phone] 04/05/2024 9:30 EDT Telemedicine [facility] - [facility] Palliative Care Services [address] [place] [address] [phone] Chichi Woods MD [address] [place] [address] [phone] 04/11/2024 15:00 EDT Telemedicine [facility] Hematology & Oncology - [address] [phone] Alisson Carreon MD [address] [place] [address] [address] [place] [phone] 04/13/2024 13:30 EDT Appointment [facility] Hematology & Oncology - [address] [phone] 04/13/2024 14:00 EDT Appointment [facility] Hematology & Oncology - [address] [phone] 04/16/2024 10:00 EST Telemedicine [facility] Palliative Care Services [address] [place] [address] [phone] Chichi Woods MD [address] [place] [address] [phone] 04/24/2024 9:00 EST Appointment [facility] Radiology CT Outpatient - [address] [phone] 04/24/2024 11:00 EST Appointment [facility] Breast Imaging - [address] [address] 04/27/2024 12:00 EST Appointment [facility] Hematology & Oncology - [address] [address] 05/02/2024 15:00 EST Telemedicine [facility] Hematology & Oncology [address] [phone] Alisson Carreon MD [address] [place] [address], [address] [place] [phone] 05/04/2024 10:15 EST Ancillary Procedure [facility] Cardiology - [address] [place] [address] 05/04/2024 11:30 EST Appointment [facility] Hematology & Oncology [address] [address] 05/04/2024 12:00 EST Appointment [facility] Hematology & Oncology [address] [phone] 06/12/2024 13:00 EST Appointment [facility] Radiology CT - [address] [phone] documented as of this encounter Visit Diagnoses Not on filedocumented in this encounter Care Teams Online Services Manager Relationship Specialty Start Date End Date Linda Blancas MD [address] [place] [address] [address] [place] [address] PCP - General 01/06/11 documented as of this encounter
--- OUTSIDE RECORDS SUMMARY | 2024-03-20 15:09 | XMS_ITS | Encounter Summary ---
Author Organization [facility] Address [address] [place] [address] Care Team Providers Care Bass String Winder Name Role Phone Ramses Blancas MD Primary Care Provider [phone] Encounter Details Date Type Department Care Team (Late st Contact Info) Description 11/05/2016 8:07 EDT - 11/05/2016 15:47 EDT Hospital Encounter [facility] Perioperative Services- [address] [address] Sg Hook MD 111 [facility], Level 5 [place] [address] Discharge Disposition: Home or Self Care Social [...] Sign Reading Time Taken Comments Blood Pressure 127/66 11/05/2016 1535 EDT Pulse - - Temperature 37.1 ??C (98.8 ??F) 11/05/2016 1535 EDT Respiratory Rate 18 11/05/2016 1535 EDT Oxygen Saturation 98% 11/05/2016 1535 EDT Inhaled Oxygen Concentration - - Weight [...] as of this encounter Discharge Diagnoses Diagnosis 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 [facility] Patient Instructions Bronchoscopy: What to Expect at Home Your Recovery Bronchoscopy lets your doctor look at your airway through a tube called a bronchoscope. Afterward, you may feel tired for 1 or 2 days. Your mouth may feel very dry for several hours after the procedure. You may also have a sore throat and a hoarse voice for a few days. Sucking on throat lozenges orgargling with warm salt water may help soothe your sore throat. If a sample of tissue (biopsy) was taken, you may spit up a small amount of blood or have bloody saliva. This is normal. This care sheet gives you a general idea about how long it will take for you to recover. But each person recovers at a different pace. Follow the steps below to get better as quickly as possible. How can you care for yourself at home? Activity ?? Do not eat anything for 2 hours after the procedure. ?? Rest when you feel tired. Getting enough sleep will help you recover. ?? Avoid strenuous activities, such as bicycle riding, jogging, weight lifting, or aerobic exercise, until your doctor says it is okay. ?? Ask your doctor when you can drive again. Diet ?? You can eat your normal diet. If your stomach is upset, try bland, low-fat foods like plain rice, broiled chicken, toast, and yogurt. ?? If it is painful to swallow, start out with cold drinks, flavored ice pops, and ice cream. Next,try soft foods like pudding, yogurt, canned or cooked fruit, scrambled eggs, and mashed potatoes. Avoid eating hard or scratchy foods like chips or raw vegetables. Avoid orange or tomato juice and other acidic foods that can sting the throat. ?? Drink plenty of fluids to avoid becoming dehydrated (unless your doctor tells you not to). Medicines ?? Take pain medicines exactly as directed. ?? If the doctor gave you a prescription medicine for pain, take it as prescribed. ?? If you are not taking a prescription pain medicine, ask your doctor if you can take an zfev-nah-diiiunw medicine. ?? If you think your pain medicine is making you sick to your stomach: ?? Take your medicine after meals (unless your doctor has told you not to). ?? Ask your doctor for a different pain medicine. ?? If your doctor prescribed antibiotics, take them as directed. Do not stop taking them just because you feel better. You need to take the full course of antibiotics. Follow-up care is a knight part of your treatment and safety. Be sure to make and go to all appointments, and call your doctor if you are having problems. It's also a good idea to know your test resultsand keep a list of the medicines you take. When should you call for help? Call 911 anytime you think you may need emergency care. For example, call if: ?? You passed out (lost consciousness). ?? You have sudden chest pain and shortness of breath. ?? You cough up large amounts of bright red blood. ?? You have severe pain in your chest. ?? You have severe trouble breathing. Call your doctor now or seek immediate medical care if: ?? You cough up more than a few tablespoons of blood. ?? You have pain that does not get better after you take pain medicine. ?? You have a fever over 100??F. ?? You still sound hoarse after a few days. ?? You have bubbles under the skin around the collarbone. These may crackle and pop when you press on them. Watch closely for changes in your health, and be sure to contact your doctor if you have any problems. Where can you learn more? Go to [email or web address] or log into your [employer] account at [email or web address]. Enter S288 in the search box to learn more about Bronchoscopy: What to Expect at Home. Current as of: November 03, 2015 Content Version: 11.2 ?? 0310-8651 [employer]. Care instructions adapted under license by [facility] If you have questions about a medical condition or this instruction, always ask your healthcare professional. [employer] disclaims any warranty or liability foryour use of this information. documented in this encounter Medications at Time [...] mouth daily. 03/28/2023 palbociclib (IBRANCE) 125 mg capsuleIndications:Alejandro herbert neoplasm of female breast, unspecified laterality, unspecified [...] or Self Care documented in this encounter H&P Notes * Brown Dean MD - 11/05/2016 1033 EDT The preoperative history and physical which was performed within 30 days of this procedure has been reviewed and the clinically appropriate elements of the physical examination have been repeated. There are no changes to the documented history and physical or if so such changes are documented below Brown Dean MD 11/05/2016 10:34 documented in this encounter Plan of Treatment Upcoming Encounters Date Type Department Care Team (Late st Contact Info) Description 04/02/2024 10:30 EDT Appointment [facility] Inter[facility] Radiology [facility] [address] [place] [address] 04/02/2024 15:15 EDT Office Visit [facility] Surgical Oncology - [facility] [address] [place] [address] Adolfo Carreno MD 111 [facility], Level 2 [place] [address] 04/05/2024 9:30 EDT Telemedicine [facility] Palliative Care Services [address] [place] [address] Chichi Woods MD [address] [phone] 04/11/2024 15:00 EDT Telemedicine [facility] Hematology & Oncology - [address] [phone] Alisson Carreon MD [address] [place] [address] [address] [place] [phone] 04/13/2024 13:30 EDT Appointment [facility] Hematology & Oncology - [address] [id number] 04/13/2024 14:00 EDT Appointment [facility] Hematology & Oncology [address] [phone] 04/16/2024 10:00 EST Telemedicine [facility] - [facility] [address] [place] [phone] Chichi Woods MD [address] [place] [address], [place] [address] [place] [phone] 04/24/2024 9:00 EST Appointment [facility] Outpatient - [address] [phone] 04/24/2024 11:00 EST Appointment [facility] Breast Imaging - [address] [phone] 04/27/2024 12:00 EST Appointment [facility] Hematology & Oncology - [address] [phone] 05/02/2024 15:00 EST Telemedicine [facility] Hematology & Oncology - [address] [phone] Alisson Carreon MD [address] [place] [address] [address] [place] [address] 05/04/2024 10:15 EST Ancillary Procedure [facility] Cardiology - [address] [place] [address] 05/04/2024 11:30 EST Appointment [facility] Hematology & Oncology [address] [address] 05/04/2024 12:00 EST Appointment [facility] Hematology & Oncology [address] [phone] 06/12/2024 13:00 EST Appointment [facility] [address] [id number] documented as of this encounter Procedures Procedure Name Priority Date/Time Associated Diagnosis Comments ECG REPORT - SCANNED 11/11/2016 10:20 EDT ENDOSCOPY REPORTS - SCANNED 11/10/2016 0:36 EDT SURGICAL PATHOLOGY Routine 11/05/2016 17 :53 EDT CYTOPATHOLOGY Routine 11/05/2016 0:00 EDT documented in this encounter Results * ECG REPORT - SCANNED (11/11/2016 10:20 EDT) 11/11/2016 10:2 0 EDT Scan 2 Financial Accountant PROCEDURE/MINOR AJ GICAL ORDERABLES * ENDOSCOPY REPORTS - SCANNED (11/10/2016 0:36 EDT) 11/10/2016 0:36 EDT Scan 2 Financial Accountant PROCEDURE/MINOR AJ GICAL ORDERABLES * SURGICAL PATHOLOGY (11/05/2016 17:53 EDT) Pathology Report: SURGICAL PATHOLOGY REPORT Reports generated via electronic interface contain original data; however they are lacking the format of the original report. Caution should be taken when reading/interpreting unformatted reports. Name: ? SUNSHINE SUBRAMANIAN ? Accession #: ? [id number] ? : ? 1960 (Age: 56) ??F ?Collect Date: ? 11/05/2016 ? Location: ? [facility] ? Receive Date: ? 11/05/2016 ? Provider: SG HOOK MD Copy to: RAMSES BLANCAS MD ? Final Pathologic Diagnosis: LYMPH NODE, SUBCARINAL, STATION 7, NEEDLE CORE BIOPSY: - Metastatic adenocarcinoma consistent with breast primary. See comment. - Lymphovascular invasion present. Comment: Geophysical Engineer slides of this case were reviewed at the intradepartmental consultation conference. For further characterization of the lesion please refer to the concurrent cytological specimen ([id number]). Estrogen and progesterone receptor assays and Her2 studies have been ordered and results will be issued in separate procedure reports. ?? Dr. Nguyen 11/09/2016 9:42 PM ? Document reviewed and electronically signed by: ? VIRGIL BOWEN MD ? Report ??Date: 11/10/2016 16:23 By the signature above, the attending physician certifies that he/she has personally conducted a gross and/or microscopic examination of the described specimens and rendered or confirmed the above diagnosis. Clinical History: Mediastinal adenopathy Molecular testing requested: previous cancer history and treatment: breast; suspected tumor type: breast ? Gross Description: ? Received in formalin labelled with proper patient identification (initials O, K) and not otherwise specified are multiple brown tissues measuring 1.5 x 1.0 x 0.2 cm in aggregate. Entirely submitted in 1. Danita Andrade 11/06/2016 11:41 AM ? ESTROGEN AND PROGESTERONE RECEPTOR IMMUNOPEROXIDASE STAINS ? Date Ordered: ? 11/11/2016 ? Status: ?? Signed Out ?Date Complete: ? 11/11/2016 ? By: ??Racheal Arce ? Date Reported: ? 11/12/2016 ? Interpretation LYMPH NODE, SUBCARINAL, STATION 7, NEEDLE CORE BIOPSY: - Metastatic adenocarcinoma, consistent with breast primary. - Positive for estrogen receptors (in greater than 90]% of tumor cells). ? - Nuclear staining intensity: Strong. - Positive for progesterone receptors (in 2% of tumor cells). ? - Nuclear staining intensity: Weak to moderate. Comment Cold ischemic time and total formalin fixation time appropriate: ??Yes. ??(Dr. Bowen)/samia Description Tissue submitted: Paraffin embedded tissue block labelled [id number] (1) from [facility] Immunohistochemical assays for estrogen receptors (SP1, [place]) and progesterone receptors (16, Leica) have been [...] estrogen receptor modulators such as Tamoxifen. ??(Dr. Bowen)/samia Reference: ??ASCO-CAP Guideline Recommendations for IHC testing of ER and [place]. J Clin Oncol 2010;28:6806-9049. NOTE: ??One or more of the reagents [...] reagents' performance characteristics have been determined by [facility]. This laboratory is certified under the Clinical Laboratory Improvement Amendments of 1988 (CLIA-88) as qualified to perform high complexity clinical laboratory testing. Document reviewed and electronically signed by: ? VIRGIL BOWEN MD ? Report date: 11/12/2016 By the signature above, the attending physician certifies that he/she has personally conducted a gross and/or microscopic examination of the described specimens and rendered or confirmed the above diagnosis. Her 2 IMMUNOPEROXIDASE REPORT ? Date Ordered: ? 11/12/2016 ? Status: ?? Signed Out ?Date Complete: ? 11/12/2016 ? By: ??Racheal Arce ? Date Reported: ? 11/12/2016 ? Interpretation ASSAY RESULTS Her2 SCORE: ?1+ TUMOR LOCATION: Lymph node, subcarinal, station 7 ? COLD ISCHEMIC TIME AND TOTAL FORMALIN FIXATIVE TIME APPROPRIATE: Yes CELLS WITH COMPLETE MEMBRANE STAINING: None MEMBRANE STAINING INTENSITY: Faint PARTIAL MEMBRANE STAINING: Present in 20% of cells CYTOPLASMIC STAINING: Faint to moderate STAINING PATTERN: Heterogeneous STAINING IN BENIGN EPITHELIUM: N/A THE HER2 ASSAY PERFORMED IS INTERPRETED NEGATIVE. ?? Comment An additional test for Her2 gene amplification will be performed by in situ hybridization (ANNE MARIE), the results of which will be issued in a separate report. (Dr. Hinson)/samia Description Tissue submitted: Paraffin embedded tissue block labelled [id number] (1) from [facility] ? Fixative: ??Formalin ??(This immunohistochemical assay is intended for paraffin-embedded tissue fixed in 10% neutral buffered formalin for 6-72 hours; 18-24 hours with maximum tissue thickness of 3-4 millimeters is recommended for best assay performance. ??Her2 should not be performed on alcohol fixed tissues.) The assay was performed under appropriate conditions according to the ferruler's instructions with appropriate assay and tissue controls using an Anti-Her2 (4B5) Rabbit Monoclonal Antibody ([place]). Her2 IHC Scoring Guidelines (invasive tumor component [...] Document reviewed and electronically signed by: ? GEO HINSON MD ? Report date: 11/12/2016 By the signature above, the attending physician certifies that he/she has personally conducted a gross and/or microscopic examination of the described specimens and rendered or confirmed the above diagnosis. Her2 GENE AMPLIFICATION BY IN-SITU HYBRIDIZATION (ANNE MARIE) ? Date Ordered: ? 11/12/2016 ? Status: ?? Signed Out ?Date Complete: ? 11/12/2016 ? By: ??Racheal Arce ? Date Reported: ? 11/12/2016 ? Interpretation Description Tissue submitted: Paraffin embedded tissue block labelled [id number] (1) from [facility] ? Specimen type: ??Lymph node core biopsy An in-situ hybridization (ANNE MARIE) assay for Her2 gene amplification status ([place] INFORM dual ANNE MARIE DNA probe) was performed on this specimen. ??The assay was performed under appropriate conditions according to the ferruler's instructions with appropriate assay and tissue controls. ??A Her2 target probe and a Chromosome 17 control probe are both enumerated in twenty tumor cell nuclei and a Her2/Chr17 ratio is calculated. ??Results are generally reported as amplified (ratio >2.0) or non-amplified (ratio <2.0). ??When initial results are inconclusive (ratio 1.9 ??2.2), an minimum additional 20 nuclei are enumerated. Her2 and Chr17 average signals per cell and the Her2/Chr17 ratio are considered for the final interpretation. ??The assay is intended for use with formalin-fixed (6-72 hours), paraffin-embedded breast cancer specimens. Reference: ??ASCO-CAP Recommendations for Her2 Testing. ??J Clin Oncol 2013; epub (www.jco.org Mar 19, 2013) Results: Her2/Chr17 ratio: 1.13 Average Her2 signals per tumor cell nucleus: ? 2.2 Average Chr17 signals per tumor cell nucleus: ? 2.0 Tumor location: ?Lymph node, subcarinal, station 7 Interpretation: ?Non-amplified The invasive tumor nuclei have no evidence of Her2 gene amplification. ??The results suggest the tumor has two copies of chromosome 17 with a normal Her2 gene copy number. ??(Dr. Hinson)/ljn ?? Document reviewed and electronically signed by: ? GEO HINSON MD ? Report date: 11/12/2016 By the signature above, the attending physician certifies that he/she has personally conducted a gross and/or microscopic examination of the described specimens and rendered or confirmed the above diagnosis. End of Report [facility] 11/05/2016 17:5 3 EDT 11/05/2016 17:53 EDT Sg Hook MD PATHOLOGY [facility] [address] [place] [address] * CYTOPATHOLOGY (11/05/2016 0:00 EDT) Pathology Report: CYTOPATHOLOGY REPORT Reports generated via electronic interface contain original data; however they are lacking the format of the original report. Caution should be taken when reading/interpreting unformatted reports. Name: ? ADRIANAJERSEYPANTERAANALISASUNSHINE Myles ? Accession #: ? [id number] : ? 1960 (Age: 56) ??F ?Collect Date: ? 11/05/2016 Location: ? [facility] ? Receive Date: ? 11/05/2016 Provider: ? SG HOOK MD Copy to: ?RAMSES BLANCAS MD ? CYTOLOGIC DIAGNOSIS: A. LYMPH NODE, RIGHT PARATRACHEAL, STATION 4R, 1.0 CM, ENDOBRONCHIAL ULTRASOUND GUIDED FINE NEEDLE ASPIRATION: - Metastatic adenocarcinoma, consistent with breast primary. ??See comment. B. LYMPH NODE, SUBCARINAL, STATION 7, 1.25CM, ENDOBRONCHIAL ULTRASOUND GUIDED FINE NEEDLE ASPIRATION: - Metastatic adenocarcinoma, consistent with breast primary. See comment. ? COMMENT: Both specimens are cellular and consist of similar malignant epithelial cells arranged in cohesive clusters and lying singly. The tumor cells have striking monomorphism with eccentrically located small round nuclei and uniform chromatin. ??Rare intracytoplasmic target vacuoles are identified. ??A cell block was examined for specimen (B) and shows a cellular specimen composed of abundant tumor cells. ??The tumor cells are morphologically similar to the patient's breast tumor ([id number]). ??A small panel of immunostains was performed, the results of which support the morphologic impression of breast origin for this metastatic tumor. ??Please also see report of the concurrent surgical specimen ([id number]) for additional prognostic information, including estrogen/progesteron e receptor status and Her-2 mack analysis. ??This case was reviewed at the intradepartmental consultation conference. ?? Immunoperoxidase staining was performed on this case to further characterize the lesion. ANTIBODY(CLONE)(BLOC K):RESULT GATA3 ([id number], [place]) (cell block): ??Strong positive nuclear staining in tumor cells TTF-1 (8G7G3/1, [place]) (cell block): ??Negative NOTE: ??One or more of the reagents [...] performance characteristics have been determined by the [facility]. ??The positive and negative controls worked appropriately. ??If immunoperoxidase staining has been performed on alcohol fixed cytology specimens, which has not been fully validated, the assays should be interpreted with caution and correlated with clinical data. ??This laboratory is certified under the Clinical Laboratory Improvement Amendments of 1988 (CLIA-88) as qualified to perform high complexity clinical laboratory testing. ?? Dr. Dominguez 11/09/2016 3:01 PM Document reviewed and electronically signed by: ? JOSUE DOMINGUEZ MD Report Date: ??11/11/2016 09:56 By the signature above, the attending physician certifies that he/she has personally conducted a gross and/or microscopic examination of the described specimens and rendered or confirmed the above diagnosis. Specimen Type: ? A: EBUS FNA, Lymph Node, Right Paratracheal, Station 4R B: EBUS FNA, Lymph Node, Subcarinal, Station 7 Clinical History: ? Mediastinal adenopathy Molecular testing requested: previous cancer history and treatment: breast; suspected tumor type: breast ? Rapid Interpretation: A. ??LYMPH NODES, RIGHT PARATRACHEAL, STATION 4R, 1.0 CM, ENDOBRONCHIAL ULTRASOUND GUIDED FINE NEEDLE ASPIRATION: Evaluation episode #1: ??Positive for malignant cells. Evaluation episode #2: ??Positive for malignant cells. B. ??LYMPH NODE, SUBCARINAL, STATION 7, 1.25 CM, ENDOBRONCHIAL ULTRASOUND GUIDED FINE NEEDLE ASPIRATION: Evaluation episode #1 ??Pass 1: ??Positive for malignant cells. Four dedicated passes into RPMI for IHC and potential molecular studies. Dr. Rodolfo Gutierrez 11/05/2016 1:52 PM Gross Description: ? A. ??EBUS FNA, Lymph Node, Right Paratracheal, Station 4R: 3 fixed prepared slides were received. ? B. ??EBUS FNA, Lymph Node, Subcarinal, Station 7: ??1 fixed prepared slide and 1 tube of RPMI for cell block processing was received. ? End of Report [facility] 11/05/2016 11/05/2016 14: 26 EDT Sg Hook MD PATHOLOGY [facility] [address] [place] [address] documented in this encounter Visit Diagnoses Not on filedocumented in this encounter Administered Medications Inactive Administered Medications - up to 3 most recent administrations Medication Order MAR Action Action Date Dose Rate Site acetaminophen (TYLENOL) tablet 1,000 mg 1,000 mg, oral, PRN, 2 doses, Starting on Tue11/05/16 at 1423, Until Tue11/05/16 at 1751, Pain, Fever, Fever especially in neuro patients, Routine, Recovery (only) Given 11/05/2016 15:22 EDT 1,000 mg atropine 0.1 mg/mL syringe 0.5 mg 0.5 mg, intravenous, PRN, Starting on Tue11/05/16 at 1423, Until Tue11/05/16 at 1751, Symptomatic HR < 50, Routine, Recovery (only) diphenhydrAMINE (BENADRYL) injection 6.25 mg 6.25 mg, intravenous, PRN, 2 doses, Starting on Tue11/05/16 at 1423, Until Tue11/05/16 at 1751, nausea, Routine, Recovery (only) fentaNYL citrate (PF) 50 mcg/mL injection 25-100 mcg 25-100 mcg, intravenous, EVERY 5 MIN PRN, Starting on Tue11/05/16 at 1423, Until Tue11/05/16 at 1751, Pain, Routine, Recovery (only) lactated ringers (LR) infusion at 25 mL/hr, intravenous, CONTINUOUS, Starting on Tue11/05/16 at 1015, Until Tue11/05/16 at 1751, Routine, Pre-Op DOS Rx Approved New Bag 11/05/2016 9:58 EDT 25 mL/hr lactated ringers (LR) infusion at 75 mL/hr, intravenous, CONTINUOUS, Starting on Tue11/05/16 at 1445, Until Tue11/05/16 at 1751, Routine, Recovery (only) naloxone (NARCAN) injection 0.2 mg 0.2 mg, intravenous, PRN, Starting on Tue11/05/16 at 1423, Until Tue11/05/16 at 1751, Opioid Reversal, Routine, Recovery (only) ondansetron (PF) (ZOFRAN) injection 2 mg 2 mg, intravenous, PRN, 1 dose, Starting on Tue11/05/16 at 1423, Until Tue11/05/16 at 1751, Nausea, Vomiting, Routine, Recovery (only) documented in this encounter Active and Recently Administered Medications Times are shown in EDT. Continuous Medication Order 11/03/2016 11/04/2016 11/05/2016 lactated ringers (LR) infusion at 25 mL/hr, intravenous, CONTINUOUS, Starting on Tue11/05/16 at 1015, Until Tue11/05/16 at 1751, Routine, Pre-Op DOS Rx Approved 0958 (New Bag - Prov ider: Sidra Jo RN)1435 (Completed - Provider: Catherine Frazier RN) lactated ringers (LR) infusion at 75 mL/hr, intravenous, CONTINUOUS, Starting on Tue11/05/16 at 1445, Until Tue11/05/16 at 1751, Routine, Recovery (only) 1434 (Continued Infu addie - Provider: Catherine Frazier RN) PRN Medication Order 11/03/2016 11/04/2016 11/05/2016 acetaminophen (TYLENOL) tablet 1,000 mg 1,000 mg, oral, PRN, 2 doses, Starting on Tue11/05/16 at 1423, Until Tue11/05/16 at 1751, Pain, Fever, Fever especially in neuro patients, Routine, Recovery (only) 1522 (Given - Provid er: Catherine Frazier RN) atropine 0.1 mg/mL syringe 0.5 mg 0.5 mg, intravenous, PRN, Starting on Tue11/05/16 at 1423, Until Tue11/05/16 at 1751, Symptomatic HR < 50, Routine, Recovery (only) diphenhydrAMINE (BENADRYL) injection 6.25 mg 6.25 mg, intravenous, PRN, 2 doses, Starting on Tue11/05/16 at 1423, Until Tue11/05/16 at 1751, nausea, Routine, Recovery (only) fentaNYL citrate (PF) 50 mcg/mL injection 25-100 mcg 25-100 mcg, intravenous, EVERY 5 MIN PRN, Starting on Tue11/05/16 at 1423, Until Tue11/05/16 at 1751, Pain, Routine, Recovery (only) naloxone (NARCAN) injection 0.2 mg 0.2 mg, intravenous, PRN, Starting on Tue11/05/16 at 1423, Until Tue11/05/16 at 1751, Opioid Reversal, Routine, Recovery (only) ondansetron (PF) (ZOFRAN) injection 2 mg 2 mg, intravenous, PRN, 1 dose, Starting on Tue11/05/16 at 1423, Until Tue11/05/16 at 1751, Nausea, Vomiting, Routine, Recovery (only) documented in this encounter Orders Medications Ordered That Vj ht Not Have Been Administered Count Last Ordered Date First Ordered Date atropine 0.1 mg/mL syringe 0.5 mg 1 017 diphenhydrAMINE (BENADRYL) i njection 6.25 mg 1 11/05/2016 fentaNYL citrate (PF) 50 mcg /mL injection 25-100 mcg 1 11/05/2016 lactated ringers (LR) infusion 1 11/05/2016 naloxone (NARCAN) injection 0.2 mg 1 2016 ondansetron (PF) (ZOFRAN) injection 2 mg 1 11/05/2016 Nursing Count Last Ordered Date First Orde red Date INSERT PERIPHERAL IV 1 11/05/2016 Transfer Count Last Ordered Date First Orde red Date NOTIFY PPS PACU PATIENT DISCHARGE 1 017 NOTIFY PPS PATIENT ARRIVAL IN PACU 1 2016 documented in this encounter Care Teams Bass String Winder Relationship Specialty Start Date End Date Ramses Blancas MD [address] [place] [address] PCP - General 01/06/11 documented as of this encounter
--- OUTSIDE RECORDS SUMMARY | 2024-03-20 15:09 | XMS_ITS | Encounter Summary ---
Author Organization [facility] Address [address] [place] [address] Care Team Providers Care Paraffiner Name Role Phone Linda Blancas MD Primary Care Provider [phone] Reason for Visit * Reason Onset Date Comments Appointment Related 11/17/2016 Encounter Details Date Type Department Care Team (Late st Contact Info) Description 11/17/2016 Telephone [facility] Hematology & Oncology - [facility] [address] [place] [address] Augustina Colin MD PhD Appointment Related Social [...] Telephone Encounter - Quita Rob RN - 11/17/2016 0953 EDT Attempted to call pt but the phone rang and rang and the mailbox was full so a message couldn't be left. Quita Calvin is available to meet with pt prior to appt. Pt can come to the clinic around 3pm and ask to have Quita Rob paged from the check in desk in hem/onc. Attempted to call pt again. Cubing Machine Tender will meet with pt after appt with Dr Colin today. * Telephone Encounter - Bryan Arambula - 11/17/2016 0833 EDT Patient calling asking if Quita Rob.. she was able to talk to Quita Calvin about Sunshine. Stage 1v breast cancer and wanted to meet with the social contact worker. documented in this encounter Plan of Treatment Upcoming Encounters Date Type Department Care Team (Late st Contact Info) Description 04/02/2024 10:30 EDT Appointment [facility] Interventional Radiology Unit [address] [place] [address] [phone] 04/02/2024 15:15 EDT Office Visit [facility] Surgical Oncology - [address] 239131 Adolfo Carreno MD 111 [facility], Level 2 [place] [phone] 04/05/2024 9:30 EDT Telemedicine [facility] - [facility] Palliative Care Services [address], [place] [phone] Chichi Woods MD 111 [facility], [address] [phone] 04/11/2024 15:00 EDT Telemedicine [facility] Hematology & Oncology - [facility] [address] [place], [place] 245011 Alisson Carreon MD [address] [place] [address], [facility] 2 [place] [phone] 04/13/2024 13:30 EDT Appointment [facility] Hematology & Oncology - [address] [phone] 04/13/2024 14:00 EDT Appointment [facility] Hematology & Oncology - [address] [phone] 04/16/2024 10:00 EST Telemedicine [facility] - [facility] Palliative Care Services [address] [place] [address] 989471 Chichi Woods MD [address] [place] [address], [address] [phone] 04/24/2024 9:00 EST Appointment [facility] Radiology CT Outpatient - [address] [id number] 04/24/2024 11:00 EST Appointment [facility] Breast Imaging - [facility] [address] [phone] 04/27/2024 12:00 EST Appointment [facility] Hematology & Oncology - [address] [phone] 05/02/2024 15:00 EST Telemedicine [facility] Hematology & Oncology - [address] 119741 Alisson Carreon MD [address] [place] [address], [facility] 2 [place] [phone] 05/04/2024 10:15 EST Ancillary Procedure [facility] Cardiology - [address] [place], [place] [phone] 05/04/2024 11:30 EST Appointment [facility] Hematology & Oncology [address] [address] 05/04/2024 12:00 EST Appointment [facility] Hematology & Oncology [address] [address] 06/12/2024 13:00 EST Appointment [facility] Radiology CT - [address] [address] documented as of this encounter Visit Diagnoses Not on filedocumented in this encounter Care Teams Paraffiner Relationship Specialty Start Date End Date Linda Blancas MD [facility] [address] [place] [address] PCP - General 01/06/11 documented as of this encounter
--- OUTSIDE RECORDS SUMMARY | 2024-03-20 15:09 | XMS_ITS | Encounter Summary ---
Author Organization [facility] Address [address] [place] [address] Care Team Providers Care Hoop Bender Tank Name Role Phone Linda Blancas MD Primary Care Provider [phone] Encounter Details Date Type Department Care Team (Late st Contact Info) Description 11/04/2016 Documentation Visit [facility] Surgical Oncology - [address] 950751 Adolfo Carreno MD [address] [place] [address], [address] 2 [place] [phone] Social History Tobacco Use Types [...] No 11/01/2016 documented as of this encounter Progress Notes * Maria Fernanda Pablo - 11/04/2016 2359 EDT Patient was presented at tumor board. documented in this encounter Plan of Treatment Upcoming Encounters Date Type Department Care Team (Late st Contact Info) Description 04/02/2024 10:30 EDT Appointment [facility] Interventional Radiology Unit [address] [place] [address] 559121 04/02/2024 15:15 EDT Office Visit [facility] Surgical Oncology - [address] [phone] Adolfo Carreno MD [address] [place] [address] 2 [place] [phone] 04/05/2024 9:30 EDT Telemedicine [facility] Palliative Care Services [address] [place] [address] 817461 Chichi Woods MD [address] [place] [phone] 04/11/2024 15:00 EDT Telemedicine [facility] Hematology & Oncology [address] 186851 Alisson Carreon MD [address] [place] [address] 2 [place] [phone] 04/13/2024 13:30 EDT Appointment [facility] Hematology & Oncology [address] [phone] 04/13/2024 14:00 EDT Appointment [facility] Hematology & Oncology [address] 714171 04/16/2024 10:00 EST Telemedicine [facility] Palliative Care Services [address] [place], [place] 607531 Cihchi Woods MD [address] [place] [address], [address] [phone] 04/24/2024 9:00 EST Appointment [facility] Radiology CT Outpatient - [address] [id number] 04/24/2024 11:00 EST Appointment [facility] Breast Imaging - [facility] S [place] [address] [place], [place] 221291 04/27/2024 12:00 EST Appointment [facility] Hematology & Oncology - [address] 060701 05/02/2024 15:00 EST Telemedicine [facility] Hematology & Oncology - [address] [phone] Alisson Carreon MD [address] [place] [address], Level [address] [place] [phone] 05/04/2024 10:15 EST Ancillary Procedure [facility] Cardiology - [address] [place], [place] [phone] 05/04/2024 11:30 EST Appointment [facility] Hematology & Oncology - [address] [id number] 05/04/2024 12:00 EST Appointment [facility] Hematology & Oncology [address] [phone] 06/12/2024 13:00 EST Appointment [facility] Radiology CT - [address] [phone] documented as of this encounter Visit Diagnoses Not on filedocumented in this encounter Care Teams Hoop Bender Tank Relationship Specialty Start Date End Date Linda Blancas MD [facility] [address] [place] [address] PCP - General 01/06/11 documented as of this encounter
--- OUTSIDE RECORDS SUMMARY | 2024-03-20 15:09 | XMS_ITS | Encounter Summary ---
Author Organization [facility] Address [address] [place] [address] Care Team Providers Care Mascara Molder Name Role Phone Linda Blancas MD Primary Care Provider [phone] Reason for Visit * Reason Onset Date Comments Results 12/01/2016 Encounter Details Date Type Department Care Team (Late st Contact Info) Description 12/01/2016 Telephone [facility] Hematology & Oncology - [facility] [address] [place] [address] Augustina Colin MD PhD Results Social History [...] * Telephone Encounter - Bess Orellana - 12/01/2016 1054 EDT Lab results from [facility] from 11/29/2016 entered. documented in this encounter Plan of Treatment Upcoming Encounters Date Type Department Care Team (Late st Contact Info) Description 04/02/2024 10:[address] [facility] Interventional Radiology Unit [address] [place] [address] 230101 04/02/2024 15:[address] [facility] Surgical Oncology - [address] [phone] Adolfo Carreno MD [address] [place] [address] 2 [place] [phone] 04/05/2024 9:30 EDT Telemedicine [facility] Palliative Care Services [address] [place] [address] [phone] Chichi Woods MD [address] [place] [phone] 04/11/2024 15:00 EDT Telemedicine [facility] Hematology & Oncology [address] [phone] Alisson Carreon MD [address] [place] [address] 2 [place] [phone] 04/13/2024 13:30 EDT Appointment [facility] Hematology & Oncology [address] [phone] 04/13/2024 14:00 EDT Appointment [facility] Hematology & Oncology [address] [phone] 04/16/2024 10:00 EST Telemedicine [facility] Palliative Care Services [address] [place] [address] [phone] Chichi Woods MD [address] [place] [address], [address] [phone] 04/24/2024 9:00 EST Appointment [facility] Radiology CT Outpatient - [address] [id number] 04/24/2024 11:[address] [facility] Breast Imaging - [address] [phone] 04/27/2024 12:00 EST Appointment [facility] Hematology & Oncology [address] [phone] 05/02/2024 15:00 EST Telemedicine [facility] Hematology & Oncology [address] 976131 Alisson Carreon MD [address] [place] [address], [facility], Level [address] [place] [phone] 05/04/2024 10:[address] [facility] Cardiology - [place] [address] 05/04/2024 11:30 EST Appointment [facility] Hematology & Oncology [address] [id number] 05/04/2024 12:00 EST Appointment [facility] Hematology & Oncology - [address] [id number] 06/12/2024 13:00 EST Appointment [facility] Radiology CT - [address] [phone] documented as of this encounter Procedures Procedure Name Priority Date/Time Associated Diagnosis Comments COMPLETE BLOOD COUNT AND DIFFERENTIAL Routine 11/29/2016 COMPREHENSIVE METABOLIC PANEL (CMP) Routine 11/29/2016 documented in this encounter Results * HEMAGRAM AND DIFFERENTIAL (11/29/2016) WBC, External 4.7 4.5 - 11.0 [facility] RBC, External 4.05 4.00 - 5.20 [facility] Hemoglobin, External 13.3 12.0 - 15.0 [facility] HCT, External 39.0 36.0 - 46.0 [facility] MCV, External 96 80 - 100 [facility] MCH, External 32.8 26.0 - 34.0 [facility] MCHC, External 34.1 31.0 - 37.0 [facility] PLT, External 277 150 - 350 [facility] RDW-CV, External 11.9 11.5 - 14.5 [facility] Neutrophils, External 55.6 31.0 - 76.0 [facility] Lymphocytes, External 37.3 24.0 - 44.0 [facility] Monocytes, External 3.8 2.0 - 11.0 [facility] Eosinophils, External 1.9 1.0 - 4.0 [facility] Basophils, External 0.8 0.0 - 2.0 [facility] ABS Neutrophils, External 2.62 1.50 - 7.80 [facility] ABS Lymphs, External 1.76 1.10 - 4.80 [facility] ABS Monocytes, External 0.18 [facility] ABS Eosinophils, External 0.09 [facility] ABS Basophils, External 0.04 [facility] Blood specimen (specimen) 11/29/2016 Historical Provider PACKAGES & DNA NM OBE ORDERABLES [facility] * (ABNORMAL) COMPREHENSIVE METABOLIC PANEL (CMP) (11/29/2016) GFR, Calculated, External >60 [facility] Glucose, Serum, External 91 74 - 106 [facility] Albumin, External 3.5 3.4 - 5.0 [facility] Total Alkaline Phosphatase, External 93 48 - 129 [facility] ALT, External 26 13 - 61 [facility] AST, External 19 15 - 37 [facility] BUN, External 21(A) 7 - 18 [facility] Calculated Calcium, External [facility] Calcium, External 8.9 8.5 - 10.1 [facility] Chloride, External 106 98 - 107 [facility] CO2, External 28 21 - 32 [facility] Creatinine, External 0.9 0.6 - 1.3 [facility] Fasting?, External [facility] Potassium, External 4.2 3.5 - 5.1 [facility] Sodium, External 143 136 - 145 [facility] Total Protein, External 7.1 6.4 - 8.2 [facility] Bilirubin, Total, External 0.42 0.20 - 1.00 [facility] Blood specimen (specimen) 11/29/2016 Historical Provider CHEMISTRY & BLOOD GAS ORDERABLES [facility] documented in this encounter Visit Diagnoses Not on filedocumented in this encounter Care Teams Mascara Molder Relationship Specialty Start Date End Date Linda Blancas MD 275 [facility] 30 [place] [address] PCP - General 01/06/11 documented as of this encounter
--- OUTSIDE RECORDS SUMMARY | 2024-03-20 15:09 | XMS_ITS | Encounter Summary ---
Author Organization [facility] Address [address] [place] [address] Care Team Providers Care Molder Meat Name Role Phone Linda Blancas MD Primary Care Provider [phone] Reason for Visit * Reason Onset Date Comments Social Work 11/30/2016 Long range plann ing/Disability options Encounter Details Date Type Department Care Team (Late st Contact Info) Description 11/30/[address] [facility] Hematology & Oncology - [address] [address] Quita Calvin MSW Social Work (Long range planning/Disability options) Social History Tobacco Use Types Packs/Day Years [...] Telephone Encounter - Quita Calvin MSW - 11/30/2016 1701 EDT SOCIAL WORK PHONE ENCOUNTER Presenting Issue: Long-range planning/Disability options Initially received an email referral from Quita Rob RN on the 09 of November. This conventional mortgage underwriter was away from 11/09/16, returned 11/16/16.. Due to time constraints, was not able to contact pt until today. Pt requesting contact with this conventional mortgage underwriter to discuss her options for disability. 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 She wishes to continue this work while she has started a pill form chemo regimen. She further reports that she does have short and long-term disability benefits. Again, she is merely looking for information for now to sort out her options. Briefly mentioned Social Security Disability as well. Pt is coming in on 12/15 for her mammogram in AM and provider visit in the afternoon with Dr. Colin. She is requesting to meet with this conventional mortgage underwriter prior to her 10:30 am mammogram. Plan: Pt scheduled to meet with this conventional mortgage underwriter at 9:15 on 12/15. Location to be determined. Thei conventional mortgage underwriter will mail her an intro letter with contact card, as well as info re: SSDI for her to review prior to meeting time. ABEL Barahona documented in this encounter Plan of Treatment Upcoming Encounters Date Type Department Care Team (Late st Contact Info) Description 04/02/2024 10:30 EDT Appointment [facility] Interventional Radiology Unit [address] [place] [address] [phone] 04/02/2024 15:15 EDT Office Visit [facility] Surgical Oncology - [facility] [address] [place], [place] [phone] Adolfo Carreno MD 111 [facility] Level [address] [place] [phone] 04/05/2024 9:[address] [facility] Palliative Care Services [address] [place] [address] [phone] Chichi Woods MD [address] [place] [phone] 04/11/2024 15:00 EDT Telemedicine [facility] Hematology & Oncology - [address] 675221 Alisson Carreon MD [address] [place] [address] [address] [place] [phone] 04/13/2024 13:30 EDT Appointment [facility] Hematology & Oncology - [address] [address] 04/13/2024 14:00 EDT Appointment [facility] Hematology & Oncology [address] [address] 04/16/2024 10:[address] [facility] Palliative Care Services [address] [place] [address] [id number] Chichi Woods MD [address] [place] [phone] 04/24/2024 9:00 EST Appointment [facility] Radiology CT Outpatient - [address] [id number] 04/24/2024 11:00 EST Appointment [facility] Breast Imaging - [address] [address] 04/27/2024 12:00 EST Appointment [facility] Hematology & Oncology - [address] [address] 05/02/2024 15:00 EST Telemedicine [facility] Hematology & Oncology [address] [phone] Alisson Carreon MD [address] [place] [address], Level [address] [place] [phone] 05/04/2024 10:15 EST Ancillary Procedure [facility] Cardiology - [address] [place] [address] 05/04/2024 11:30 EST Appointment [facility] Hematology & Oncology [address] [phone] 05/04/2024 12:00 EST Appointment [facility] Hematology & Oncology [address] 743161 06/12/2024 13:00 EST Appointment [facility] Radiology CT - [address] [phone] documented as of this encounter Visit Diagnoses Not on filedocumented in this encounter Care Teams Molder Meat Relationship Specialty Start Date End Date Linda Blancas MD [facility] [address] [place] [address] PCP - General 01/06/11 documented as of this encounter
--- OUTSIDE RECORDS SUMMARY | 2024-03-20 15:09 | XMS_ITS | Encounter Summary ---
Author Organization [facility] Address [address] [place] [address] Care Team Providers Care Ginner Name Role Phone Linda Blancas MD Primary Care Provider [phone] Encounter Details Date Type Department Care Team (Late st Contact Info) Description 11/04/2016 Phlebotomy Only [facility] - [facility] [address] [place], [place] [id number] Supervisor Film Processing, Outpatient Abnormal chest CT; Malignant neoplasm of right female breast, unspecified site of breast Social History Tobacco Use Types Packs/Day Years [...] [facility] Interventional Radiology Unit [address] [place] [address] 04/02/2024 15:15 EDT Office Visit [facility] Surgical Oncology - [address] 390201 Adolfo Carreno MD [address] [place] [address] [phone] 04/05/2024 9:30 EDT Telemedicine [facility] Palliative [facility] Services [address] [place] [address] [phone] Chichi Woods MD [address] [place] [address] [phone] 04/11/2024 15:00 EDT Telemedicine [facility] Hematology & Oncology - [address] 143771 Alisson Carreon MD [address] [place] [address] [phone] 04/13/2024 13:30 EDT Appointment [facility] Hematology & Oncology [address] [phone] 04/13/2024 14:00 EDT Appointment [facility] Hematology & Oncology - [address] [address] 04/16/2024 10:00 EST Telemedicine [facility] Palliative Care Services [address] [place] [address] [phone] Chichi Woods MD [address] [place] [address] [phone] 04/24/2024 9:00 EST Appointment [facility] Radiology CT Outpatient - [address] [address] 04/24/2024 11:00 EST Appointment [facility] Breast Imaging - [facility] [address] [place] [address] 04/27/2024 12:00 EST Appointment [facility] Hematology & Oncology [address] [address] 05/02/2024 15:00 EST Telemedicine [facility] Hematology & Oncology [address] [phone] Alisson Carreon MD [address] [place] [address], Level [address] [place] [phone] 05/04/2024 10:15 EST Ancillary Procedure [facility] Cardiology - [address] [place] [address] 05/04/2024 11:30 EST Appointment [facility] Hematology & Oncology [address] [phone] 05/04/2024 12:00 EST Appointment [facility] Hematology & Oncology [address] [phone] 06/12/2024 13:00 EST Appointment [facility] Radiology CT - [address] [id number] documented as of this encounter Procedures Procedure Name Priority Date/Time Associated Diagnosis Comments PROTIME Routine 11/04/2016 10:[address] Malignant neoplasm of right female breast, unspecified site of breast COMPLETE BLOOD COUNT AND DIFFERENTIAL Routine 11/04/2016 10:[address] Malignant neoplasm of right female breast, unspecified site of breast BASIC METABOLIC PANEL (BMP) Routine 11/04/2016 10:[address] Malignant neoplasm of right female breast, unspecified site of breast documented in this encounter Results * BASIC METABOLIC PANEL (11/04/2016 10:54 EDT) Sodium 142 136 - 145 mEq/L 11/04/2016 11:41 [facility] Potassium 4.7 3.5 - 5.0 mEq/L 11/04/2016 11:41 [facility] Chloride 102 96 - 110 mEq/L 11/04/2016 11:41 [facility] CO2 30 22 - 32 mEq/L 11/04/2016 11:41 [facility] BUN 23 10 - 26 mg/dl 11/04/2016 11:41 [facility] Creatinine 0.71 0.52 - 1.04 mg/dl 11/04/2016 11:41 [facility] GFR, Calculated 96 >60 ml/min/1.7 3m2 11/04/2016 11:41 [facility] Comment: eGFR calculated using CKD-EPI equation for non Americans. Multiply eGFR by 1.16 for Americans. Calcium 9.6 8.5 - 10.5 mg/dl 11/04/2016 11:41 [facility] Calculated Calcium 9.4 8.5 - 10.5 mg/dl 11/04/2016 11:41 [facility] Glucose, Serum 73 70 - 100 mg/dl 11/04/2016 11:41 [facility] Fasting? No 11/04/2016 10:53 [facility] Blood specimen (specimen) BLOOD SPECIMEN / Unknown 11/04/2016 10:54 EDT 11/04/2016 11:08 EDT Sg Gonzalez MD CHEMISTRY & BL OOD GAS ORDERABLES [facility] [address] [place] [address] * PROTIME (11/04/2016 10:54 EDT) Pro Time 11.0 10.3 - 13.1 secs 11/04/2016 11:45 [facility] I.N.R. 0.9 0.9 - 1.1 Ratio 11/04/2016 11:45 [facility] Comment: Moderate Intensity Coumadin INR = 2.0-3.0 Adjustments in anticoagulant therapy dose should be based upon the INR and NOT the Pro Time. Blood specimen (specimen) BLOOD SPECIMEN / Unknown 11/04/2016 10:54 EDT 11/04/2016 11:08 EDT Sg Gonzalez MD HEMATOLOGY & P F4 ORDERABLES [facility] [address] [place] [address] * HEMAGRAM AND DIFFERENTIAL (11/04/2016 10:54 EDT) WBC 8.68 4.0 - 12.4 K/cmm 11/04/2016 11:38 [facility] RBC 4.40 3.86 - 5.04 M/cmm 11/04/2016 11:38 [facility] Hemoglobin 14.3 11.6 - 15.2 gm/dl 11/04/2016 11:38 [facility] HCT 42.3 34.9 - 44.4 % 11/04/2016 11:38 [facility] MCV 96 81 - 98 fl 11/04/2016 11:38 [facility] MCH 32.5 26.7 - 33.3 pg 11/04/2016 11:38 [facility] MCHC 33.8 32.1 - 35.9 gm/dl 11/04/2016 11:38 [facility] RDW-CV 11.9 <14.7 % 11/04/2016 11:38 [facility] RDW-SD 41.9 <50.4 fl 11/04/2016 11:38 [facility] PLT 255 141 - 377 K/cmm 11/04/2016 11:38 [facility] MPV 10.4 9.5 - 12.7 fl 11/04/2016 11:38 [facility] % Neutrophils 63.0 % 11/04/2016 11:38 T [facility] % Lymphocytes 27.5 % 11/04/2016 11:38 [facility] % Monocytes 7.4 % 11/04/2016 11:38 [facility] % Eosinophils 1.3 % 11/04/2016 11:38 [facility] % Basophils 0.6 % 11/04/2016 11:38 [facility] % Immature Grans 0.2 % 11/04/2016 11:38 [facility] ABS Neutrophils 5.47 2.20 - 8.85 K/cm 11/04/2016 11:38 [facility] ABS Lymphs 2.39 1.09 - 3.30 K/cm 11/04/2016 11:38 [facility] ABS Monocytes 0.64 0.1 - 0.8 K/cm 11/04/2016 11:38 [facility] ABS Eosinophils 0.11 0.03 - 0.61 K/cm 11/04/2016 11:38 [facility] ABS Basophils 0.05 0.01 - 0.11 K/cmm 11/04/2016 11:38 [facility] ABS Immature Grans 0.02 0 - 0.06 K/cm 11/04/2016 11:38 [facility] Type of Diff: Automated 11/04/2016 11:38 [facility] Blood specimen (specimen) BLOOD SPECIMEN / Unknown 11/04/2016 10:54 EDT 11/04/2016 11:08 EDT Sg Gonzalez MD PACKAGES & DNA PROBE ORDERABLES [facility] [address] [place] [address] documented in this encounter Visit Diagnoses Diagnosis Abnormal chest CT Nonspecific (abnormal) findings on radiological and other examination of other intrathoracic organs Malignant neoplasm of right female breast, unspecified site of breast documented in this encounter Care Teams Ginner Relationship Specialty Start Date End Date Linda Blancas MD [facility] [address] [place] [address] PCP - General 01/06/11 documented as of this encounter
--- OUTSIDE RECORDS SUMMARY | 2024-03-20 15:09 | XMS_ITS | Encounter Summary ---
Author Organization [facility] Address [address] [place] [address] Care Team Providers Care Appeals And Generalist Clerk Name Role Phone Linda Blancas MD Primary Care Provider [phone] Reason for Referral * Prior Authorization (Routine/Next Available) - Authorized Specialty Diagnoses / Procedures Referred By [facility] Referred To Contact Diagnoses Metastatic breast cancer Augustina Colin MD PhD Referral ID Status Reason Start Date Expiration Date V isits Requested Visits Authorized [id number] Authorized Other 11/05/2016 1 0 Question Answer Medication to be Prior Authorized: ibrance [facility] Precertification Request for Medications 11/05/2016 URGENT: No Medication Administration: PO, Home Patient Name: Sunshine Pleitez Patient : [id number] Ordering MD: kiki Nurse: [facility] Phone: [phone] Is this a dosage change, renewal or a new medication? New Med Medication Start Date & Number of Cycles: Start in 2-3 weeks, ongoing until disease progression PT BSA: There is no height or weight on file to calculate BSA. What is the reason for taking this medication? Metastatic breast cancer Is this an on label usage of this medication? Yes What is the patient's current drug regimen? n/a Similar drugs patient has been on and failed? n/a Please Prior Auth Medications Listed below: ibrance 125mg PO daily for 21 days on then 7 days off Dispense 21 tabs with 11 refills Reason for Visit * Reason Onset Date Comments Medications Refill 11/05/2016 Encounter Details Date Type Department Care Team (Late st Contact Info) Description 11/05/[address] [facility] Hematology & Oncology - [address] [address] Quita Rob RN Medications Refill Social History [...] mouth daily. 21 Cap 1 11/05/2016 01/11/2017 documented in this encounter Plan of Treatment Upcoming Encounters Date Type Department Care Team (Late st Contact Info) Description 04/02/2024 10:30 EDT Appointment [facility] Interventional Radiology Unit [address] [place] [address] 04/02/2024 15:15 EDT Office Visit [facility] Surgical Oncology - [address] [phone] Adolfo Carreno MD [address] [facility], Level 2 [place] [phone] 04/05/2024 9:30 EDT Telemedicine [facility] Palliative Care Services [address] [place], [place] 819521 Chichi Woods MD [address] [place] [address] [address] [place] [phone] 04/11/2024 15:00 EDT Telemedicine [facility] Hematology & Oncology - [address] [phone] Alisson Carreon MD [address] [place] [address], [address] [place] [phone] 04/13/2024 13:30 EDT Appointment [facility] Hematology & Oncology [address] 672131 04/13/2024 14:00 EDT Appointment [facility] Hematology & Oncology [address] [phone] 04/16/2024 10:[address] [facility] - [facility] Palliative Care Services [address] [place] [address] [phone] Chichi Woods MD [address] [place] [address] [phone] 04/24/2024 9:[address] [facility] Radiology CT Outpatient - [address] [id number] 04/24/2024 11:00 EST Appointment [facility] Breast Imaging - [facility] S [address] [phone] 04/27/2024 12:00 EST Appointment [facility] Hematology & Oncology - [address] 135841 05/02/2024 15:00 EST Telemedicine [facility] Hematology & Oncology - [address] [phone] Alisson Carreon MD [address] [facility], [address] [place] [phone] 05/04/2024 10:15 EST Ancillary Procedure [facility] Cardiology - [address] [place] [address] 05/04/2024 11:30 EST Appointment [facility] Hematology & Oncology - [address] [phone] 05/04/2024 12:00 EST Appointment [facility] Hematology & Oncology - [address] [phone] 06/12/2024 13:[address] [facility] Radiology CT - [address] [phone] Scheduled Referrals Name Type Priority Associated Diagnoses Order Schedule AMB MEDICATION PRIOR AUTHORIZATION Outpatient Referral Routine Metastatic breast cancer (CMS-HCC) (HCC-CMS) Ordered: 11/05/2016 documented as of this encounter Visit Diagnoses Diagnosis Malignant neoplasm of female breast, unspecified laterality, unspecified site of breast- Primary Metastatic breast cancer documented in this encounter Care Teams Appeals And Generalist Clerk Relationship Specialty Start Date End Date Linda Blancas MD [facility] [address] [place] [address] PCP - General 01/06/11 documented as of this encounter
--- OUTSIDE RECORDS SUMMARY | 2024-03-20 15:09 | XMS_ITS | Encounter Summary ---
Author Organization [facility] Address [address] [place] [address] Care Team Providers Care Safety Equipment Testing Specialist Name Role Phone Linda Blancas MD Primary Care Provider [phone] Encounter Details Date Type Department Care Team (Late st Contact Info) Description 11/12/2016 Results Only Imaging [facility] Surgical Oncology - [address] [phone] Adolfo Carreno MD [address] [place] [address], Level [address] [place] [phone] Social History Tobacco Use Types [...] [facility] Interventional Radiology Unit [address] [place] [address] [phone] 04/02/2024 15:15 EDT Office Visit [facility] Surgical Oncology - [address] 072241 Adolfo Carreno MD [address] [place] [phone] 04/05/2024 9:30 EDT Telemedicine [facility] Palliative Care Services [address] [place] [address] [phone] Chichi Woods MD [address] [place] [address] [phone] 04/11/2024 15:00 EDT Telemedicine [facility] Hematology & Oncology [address] [phone] Alisson Carreon MD [address] [place] [phone] 04/13/2024 13:30 EDT Appointment [facility] Hematology & Oncology [address] [phone] 04/13/2024 14:00 EDT Appointment [facility] Hematology & Oncology [address] [phone] 04/16/2024 10:00 EST Telemedicine [facility] Palliative Care Services [address] [place] [address] [phone] Chichi Woods MD [address] [place] [address] [phone] 04/24/2024 9:00 EST Appointment [facility] Radiology CT Outpatient - [address] [address] 04/24/2024 11:00 EST Appointment [facility] Breast Imaging - [facility] [address] [place] [address] [place] [address] 04/27/2024 12:00 EST Appointment [facility] Hematology & Oncology - [address] [address] 05/02/2024 15:00 EST Telemedicine [facility] Hematology & Oncology [address] [phone] Alisson Carreon MD [address] [place] [address], Level [address] [place] [phone] 05/04/2024 10:15 EST Ancillary Procedure [facility] Cardiology - [place] [address] 05/04/2024 11:30 EST Appointment [facility] Hematology & Oncology [address] [address] 05/04/2024 12:00 EST Appointment [facility] Hematology & Oncology [address] [phone] 06/12/2024 13:00 EST Appointment [facility] Radiology CT - [address] [phone] documented as of this encounter Procedures Procedure Name Priority Date/Time Associated Diagnosis Comments CT ABDOMEN (LUNG BASES TO ILIAC CREST) W CONTRAST 10/27/2016 9:50 EDT documented in this encounter Results * CT ABDOMEN (LUNG BASES TO ILIAC CREST) W CONTRAST (10/27/2016 9:50 EDT) Anatomical Region Laterality Modality Other 10/27/2016 9:50 EDT 10/27/2016 11:24 EDT Narrative 10/27/2016 11:[address] ABDOMEN W CONTRAST ??10/27/2016 9:50 AM Signs and Symptoms/Comments: ?? Z85.3-Personal history of malignant neoplasm of [id number]; h/o breast cancer 2003; new area suspicious for malignancy Technique: CT of the abdomen was performed following the administration intravenous contrast; coronal and sagittal multiplanar reconstructions generated. Comparison: No prior CTs Findings: Lower chest: See accompanying chest CT report. Hepatobiliary: The liver is without significant finding, tiny probable cyst noted junction right and left lobes, axial 38. No biliary ductal dilatation. Gallbladder normal. Spleen, pancreas, adrenal glands: Spleen, pancreas, adrenal glands normal. Kidneys, proximal ureters: Kidneys enhance symmetrically. No hydronephrosis. Proximal ureters normal. Bowel: No bowel obstruction or wall thickening as far as bowel included. Peritoneal cavity: No free fluid or fluid collection. Lymphovascular: Aorta shows minimal atherosclerotic calcification. No pathologically enlarged upper abdominal or retroperitoneal lymph nodes. Abdominal wall: Free of hernias. Musculoskeletal: Extensive post surgical changes from lumbar spinal fusion. No compression deformities are concerning focal findings. Impression: 1. No signs of malignancy abdomen pelvis. 2. Mild atherosclerosis. 3. Postsurgical changes lumbar spine. Procedure Note Pavan Ceron MD - 10/27/2016 CT ABDOMEN W CONTRAST 10/27/2016 9:50 AM Signs and Symptoms/Comments: Z85.3-Personal history of malignant neoplasm of [id number]; h/o breast cancer 2003; new area suspicious for malignancy Technique: CT of the abdomen was performed following the administration intravenous contrast; coronal and sagittal multiplanar reconstructions generated. Comparison: No prior CTs Findings: Lower chest: See accompanying chest CT report. Hepatobiliary: The liver is without significant finding, tiny probable cyst noted junction right and left lobes, axial 38. No biliary ductal dilatation. Gallbladder normal. Spleen, pancreas, adrenal glands: Spleen, pancreas, adrenal glands normal. Kidneys, proximal ureters: Kidneys enhance symmetrically. No hydronephrosis. Proximal ureters normal. Bowel: No bowel obstruction or wall thickening as far as bowel included. Peritoneal cavity: No free fluid or fluid collection. Lymphovascular: Aorta shows minimal atherosclerotic calcification. No pathologically enlarged upper abdominal or retroperitoneal lymph nodes. Abdominal wall: Free of hernias. Musculoskeletal: Extensive post surgical changes from lumbar spinal fusion. No compression deformities are concerning focal findings. Impression: 1. No signs of malignancy abdomen pelvis. 2. Mild atherosclerosis. 3. Postsurgical changes lumbar spine. Adolfo Carreno MD IMG CT ORDERABLES documented in this encounter Visit Diagnoses Not on filedocumented in this encounter Care Teams Safety Equipment Testing Specialist Relationship Specialty Start Date End Date Linda Blancas MD [address] [place] [address] [address] [place] [address] PCP - General 01/06/11 documented as of this encounter
--- OUTSIDE RECORDS SUMMARY | 2024-03-20 15:09 | XMS_ITS | Encounter Summary ---
Author Organization [facility] Address [address] [place] [address] Care Team Providers Care Drip Box Tender Name Role Phone Linda Blancas MD Primary Care Provider [phone] Reason for Referral * Consult (Routine) - Closed Specialty Diagnoses / Procedures [facility] To Contact Pulmonary Disease Diagnoses Malignant neoplasm of right female breast, unspecified site of breast Abnormal chest CT Procedures ADULT BRONCHOSCOPY [place] [facility] INCL FLUOR GDNCE DX W/CELL WASHG SPX [place] BRONCHOSCOPY BRONCHIAL/ENDOBRNCL BX 1+ SITES [place] BRONCHOSCOPY W/TRANSBRONCHIAL LUNG BX 1 LOBE IL [facility] EBUS GUIDED SAMPL 1/2 NODE STATION/STRUX Sg Gonzalez MD [address] [facility], Level [address] [place] [address] [place] [address] [place] [id number] Referral ID Status Reason Start Date Expiration Date Visits Re quested Visits Authorized [id number] Closed 11/04/2016 1 1 Reason for Visit * Reason Comments New Patient Visit lung nodules Encounter Details Date Type Department Care Team (Late st Contact Info) Description 11/04/2016 10:00 EDT Office Visit [facility] Pulmonology & Critical Care - [facility] [address] [place] [address] Sg Gonzalez MD [address] [place] [address], [address] [place] [address] Malignant neoplasm of right female breast, unspecified site of breast (Primary Dx); Abnormal chest CT Discharge Disposition: Auto Discharge Social History Tobacco [...] Sign Reading Time Taken Comments Blood Pressure 124/70 11/04/2016 1000 EDT Pulse 76 11/04/2016 1000 EDT Temperature 35.8 ??C (96.4 ??F) 11/04/2016 1000 EDT Respiratory Rate 16 11/04/2016 1000 EDT Oxygen Saturation 99% 11/04/2016 1000 EDT Inhaled Oxygen Concentration - - Weight 68.8 kg (151 lb 10.8 oz) 11/04/2016 1000 EDT Height 156.6 cm (5' 1.65) 11/04/2016 1000 EDT Body Mass Index 28.06 11/04/2016 1000 EDT documented in this encounter Functional Status [...] 11/01/2016 documented as of this encounter Discharge Disposition Disposition Code Departure Means Destination Auto Discharge documented in this encounter Progress Notes * Sg Gonzalez MD - 11/04/2016 1000 EDT [facility] - Lung Nodule Clinic New patient evaluation PCP: Linda Blancas Chief Complaint Patient presents with ??? New Patient Visit lung nodules HISTORY OF PRESENT ILLNESS: Ms. Bernstein is a 63 year old lifelong nonsmoking woman currently under evaluation for breast cancer who is referred to the lung nodule clinic for evaluation of mediastinal adenopathy and lung nodules. She has no known history of lung disease although does seem prone to bouts of coughing. She was diagnosed with DCIS involving the right breast in 2003 and underwent right mastectomy and reconstruction. The cancer was nuclear grade 2 and 2.7cm in greatest dimension and margins were positive. Earlier this year, she noted a firmness and discharge from around an area adjacent to the implant onthe left in the region of the access point for inflation of the implant. An ultrasound at [facility] showed an irregular 1.2x.1.2x1.5cm mass at the site of the visible abnormality. Dr. Carreno did punch biopsies on 10/21/2016 that showed invasive ductal type carcinoma, nuclear grade 2 that was ER pos 80%, IL os 20%, HER-2 1+. Due to location, a CT chest was obtained on 10/27/2016 at [facility]. This CT showed the subcutaneous soft tissue mass adjacent to the right breast seen on ultrasound. This does not abut the chest wall. Within the lungs, there were numerous, bilateral, very small lung nodules (4mm or less) with an upper lung predominance along with prominent/borderline enlarged bilateral hilar and mediastinal lymph nodes. No endobronchial lesion or airway narrowing appreciated. She presents today for discussion about evaluation of these nodules. Ms. Bernstein is a lifelong nonsmoker without prior diagnosis of lung disease. She does have seasonal allergies. However, she and her note that she does seem to cough more frequently thanother people. This cough is typically dry. The cough has been going on for at least a year if not longer. At one point she did have an albuterol inhaler that seemed to help a slight bit. She denies much dyspnea, orthopnea, or history of PND. No f/c/ns. She has longstanding arthritis in multiple joints but in particular her hands. She has never noted overt joint inflammation and has not been diagnosed with an autoimmune disorder. She does note morning stiffness with her hands that improves shortly after waking up. Due to this, she takes ibuprofen on a regular basis (at least 1x/day). She has not had a history of rash/skin changes, kidney stones, hematuria. She has had general anesthesia in the past and has not had complications. She has no family history of complications with anesthesia. SMOKING HISTORY reports that she has never smoked. She has never used smokeless tobacco. IMAGING FINDINGS I have independently reviewed the images from the CT chest dated 10/27/2016 as discussed above PAST MEDICAL HISTORY PAST SURGICAL HISTORY Past Medical History: Diagnosis Date ??? Allergy [...] TUNNEL RELEASE 2007 ??? LIPOMA RESECTION 2000 CURRENT MEDICATIONS: ALLERGIES: Current Outpatient Prescriptions on File Prior to Visit Medication Sig Dispense Refill ??? calcium-vitamin D (OS-CHAR D) 500 mg(1,250mg) -200 unit per tablet Take 1 Tab by mouth 2 times daily with breakfast and dinner. ??? cetirizine (ZYRTEC) 10 mg tablet Take 10 mg by mouth daily as needed for Allergies. Reported on11/01/2016 ??? DOXYLAMINE SUCCINATE (UNISOM ORAL) Take by [...] 200-400 mg by mouth as needed. ??? MULTIVITS [...] facility-administered medications on file prior to visit. is allergic to amoxicillin and sulfa (sulfonamide antibiotics). FAMILY HISTORY SOCIAL HISTORY family history includes Breast Cancer (age of onset: 35) in her paternal aunt; Cancer in her fatherand maternal uncle; Cancer (age of onset: 59) in her brother. Social History Social History ??? Marital status: [...] ??? Not on file Social History Narrative 14 point ROS questionnaire negative except for: Headaches, cough, fatigue PHYSICAL EXAM: BP 124/70 Pulse 76 Temp 35.8 ??C (96.4 ??F) Resp 16 Ht 156.6 cm (61.65) Wt 68.8 kg (151 lb 10.8 oz) SpO2 99% BMI 28.06 kg/m2 General appearance: alert, cooperative, no distress Head: Normocephalic, without obvious abnormality, atraumatic Eyes: negative findings: conjunctivae and sclerae normal and corneas clear Throat/Mouth: normal findings: palate normal, tongue midline and normal and mallampati II airway view Neck: supple, symmetrical, trachea midline, no JVD and full range of motion Lymph nodes: Cervical, supraclavicular, and axillary nodes normal. Lungs: clear to auscultation bilaterally, no crackles/wheezes/ronchi Heart: regular rate and rhythm, S1, S2 normal, no murmur, click, rub or gallop Abdomen: soft, non-tender; bowel sounds normal; no masses, no organomegaly Extremities: wwp, 2+ symmetric radial pulses; enlarged PIP and DIP joints on both hands without increased warmth or erythema PULMONARY FUNCTION TESTS: Pulmonary function tests were deferred IMPRESSION 1. Abnormal chest CT. If taken in isolation, the chest CT findings have an appearance that is most suggestive of granulomatous disease with bilateral lymph node prominence and bilateral upper lung predominant small nodules. The longstanding cough and perhaps the small joint arthritis along with theimaging findings raises a question about sarcoidosis. Granulomatous infection like histoplasmosis is a consideration as well. In the context of the breast cancer recurrence, metastatic malignancy is a consideration as well. Breast cancer can be associated with a granulomatous response which may tiethe two together. We discussed methods of biopsy including mediastinoscopy, EUS, and EBUS. EBUS allo ws for sampling of more of the suspicious lymph nodes at one procedure; if malignancy is not seen on the lymph node biopsies, we can also consider performing transbronchial biopsies as well. RECOMMENDATIONS 1. EBUS with lymph node sampling and possible fluoroscopic transbronchial biopsies to be arranged for tomorrow. Consent obtained in clinic. 2. Pre-procedure labs: cbc, INR, basic to be obtained today Counseled on smoking cessation N/A Thank you for letting me participate in the care of Sunshine Pleitez. I will see her back in 3 months pending results of the aforementioned studies. Please call me at [phone] if any further questions arise. Sg Gonzalez MD Pulmonary and Critical Care Medicine [facility] Other Orders Placed This Visit Procedures ? ? Hemagram & Differential ??? Protime ??? Basic Metabolic Panel ??? Adult Bronchoscopy documented in this encounter Plan of Treatment Upcoming Encounters Date Type Department Care Team (Late st Contact Info) Description 04/02/2024 10:30 EDT Appointment [facility] Interventional Radiology Unit [address] [place] [address] [phone] 04/02/2024 15:15 EDT Office Visit [facility] Surgical Oncology - [address] [phone] Adolfo Carreno MD 111 [facility], [facility] 2 [place] [phone] 04/05/2024 9:30 EDT Telemedicine [facility] Palliative Care Services [address] [place] [address] [phone] Chichi Woods MD [address] [place] [address] [phone] 04/11/2024 15:00 EDT Telemedicine [facility] Hematology & Oncology [address] 134391 Alisson Carreon MD [address] [place] [address], [address] [place] [phone] 04/13/2024 13:30 EDT Appointment [facility] Hematology & Oncology [address] [phone] 04/13/2024 14:00 EDT Appointment [facility] Hematology & Oncology [address] [phone] 04/16/2024 10:00 EST Telemedicine [facility] Palliative Care Services [address] [place] [address] 105231 Chichi Woods MD [address] [place] [address] [phone] 04/24/2024 9:00 EST Appointment [facility] Radiology CT Outpatient - [address] [id number] 04/24/2024 11:00 EST Appointment [facility] Breast Imaging - [address] [phone] 04/27/2024 12:00 EST Appointment [facility] Hematology & Oncology - [address] [phone] 05/02/2024 15:00 EST Telemedicine [facility] Hematology & Oncology - [address] [phone] Alisson Carreon MD 111 [facility], [facility], [address] [place] [phone] 05/04/2024 10:15 EST Ancillary Procedure [facility] Cardiology - [address] [place], [place] [phone] 05/04/2024 11:30 EST Appointment [facility] Hematology & Oncology - [address] [phone] 05/04/2024 12:00 EST Appointment [facility] Hematology & Oncology [address] [phone] 06/12/2024 13:00 EST Appointment [facility] Radiology CT - [facility] [address] [place], [place] [phone] Scheduled Orders Name Type Priority Associated Diagnoses Orde r Schedule ADULT BRONCHOSCOPY PFT Routine Malignant Neoplasm Of Right Female Breast, Unspecified Site Of Breast Abnormal chest CT Ordered: 11/04/2016 documented as of this encounter Results * BASIC METABOLIC PANEL (11/04/2016 10:54 EDT) Sodium 142 136 - 145 mEq/L 11/04/2016 11:41 [facility] Potassium 4.7 3.5 - 5.0 mEq/L 11/04/2016 11:41 [facility] Chloride 102 96 - 110 mEq/L 11/04/2016 11:41 [facility] CO2 30 22 - 32 mEq/L 11/04/2016 11:41 [facility] BUN 23 10 - 26 mg/dl 11/04/2016 11:41 [facility] Creatinine 0.71 0.52 - 1.04 mg/dl 11/04/2016 11:41 [facility] GFR, Calculated 96 >60 ml/min/1.7 3m2 11/04/2016 11:41 [facility] Comment: eGFR calculated using CKD-EPI equation for non Americans. Multiply eGFR by 1.16 for Americans. Calcium 9.6 8.5 - 10.5 mg/dl 11/04/2016 11:41 EDT [facility] Calculated Calcium 9.4 8.5 - 10.5 mg/dl 11/04/2016 11:41 EDT [facility] Glucose, Serum 73 70 - 100 mg/dl 11/04/2016 11:41 T [facility] Fasting? No 11/04/2016 10:53 T [facility] Blood specimen (specimen) BLOOD SPECIMEN / Unknown 11/04/2016 10:54 EDT 11/04/2016 11:08 EDT Sg Gonzalez MD CHEMISTRY & BL OOD GAS ORDERABLES Performing Organization Address City/[facility] Co de Phone Number [facility] [address] [place] [address] * PROTIME (11/04/2016 10:54 EDT) Pro Time 11.0 10.3 - 13.1 secs 11/04/2016 11:45 [facility] I.N.R. 0.9 0.9 - 1.1 Ratio 11/04/2016 11:45 T [facility] Comment: Moderate Intensity Coumadin INR = 2.0-3.0 Adjustments in anticoagulant therapy dose should be based upon the INR and NOT the Pro Time. Blood specimen (specimen) BLOOD SPECIMEN / Unknown 11/04/2016 10:54 EDT 11/04/2016 11:08 EDT Sg Gonzalez MD HEMATOLOGY & P F4 ORDERABLES Performing Organization Address City/[facility]/ZIP Co de Phone Number [facility] [address] [place] [address] * HEMAGRAM AND DIFFERENTIAL (11/04/2016 10:54 EDT) WBC 8.68 4.0 - 12.4 K/cmm 11/04/2016 11:38 EDT [facility] RBC 4.40 3.86 - 5.04 M/cmm 11/04/2016 11:38 [facility] Hemoglobin 14.3 11.6 - 15.2 gm/dl 11/04/2016 11:38 [facility] HCT 42.3 34.9 - 44.4 % 11/04/2016 11:38 [facility] MCV 96 81 - 98 fl 11/04/2016 11:38 [facility] MCH 32.5 26.7 - 33.3 pg 11/04/2016 11:38 [facility] MCHC 33.8 32.1 - 35.9 gm/dl 11/04/2016 11:38 [facility] RDW-CV 11.9 <14.7 % 11/04/2016 11:38 [facility] RDW-SD 41.9 <50.4 fl 11/04/2016 11:38 [facility] PLT 255 141 - 377 K/[facility] 11/04/2016 11:38 [facility] MPV 10.4 9.5 - 12.7 fl 11/04/2016 11:38 [facility] % Neutrophils 63.0 % 11/04/2016 11:38 [facility] % Lymphocytes 27.5 % 11/04/2016 11:38 [facility] % Monocytes 7.4 % 11/04/2016 11:38 [facility] % Eosinophils 1.3 % 11/04/2016 11:38 [facility] % Basophils 0.6 % 11/04/2016 11:38 [facility] % Immature Grans 0.2 % 11/04/2016 11:38 [facility] ABS Neutrophils 5.47 2.20 - 8.85 K/[facility] 11/04/2016 11:38 [facility] ABS Lymphs 2.39 1.09 - 3.30 K/[facility] 11/04/2016 11:38 [facility] ABS Monocytes 0.64 0.1 - 0.8 K/[facility] 11/04/2016 11:38 [facility] ABS Eosinophils 0.11 0.03 - 0.61 K/cm 11/04/2016 11:38 EDT [facility] ABS Basophils 0.05 0.01 - 0.11 K/[facility] 11/04/2016 11:38 EDT [facility] ABS Immature Grans 0.02 0 - 0.06 K/[facility] 11/04/2016 11:38 EDT [facility] Type of Diff: Automated 11/04/2016 11:38 EDT [facility] Blood specimen (specimen) BLOOD SPECIMEN / Unknown 11/04/2016 10:54 EDT 11/04/2016 11:08 EDT Sg Gonzalez MD PACKAGES & DNA PROBE ORDERABLES [facility] [address] [place] [address] documented in this encounter Visit Diagnoses Diagnosis Malignant neoplasm of right female breast, unspecified site of breast- Primary Abnormal chest CT Nonspecific (abnormal) findings on radiological and other examination of other intrathoracic organs documented in this encounter Care Teams Drip Box Tender Relationship Specialty Start Date End Date Linda Blancas MD [facility] [address] [place] [address] PCP - General 01/06/11 documented as of this encounter
--- OUTSIDE RECORDS SUMMARY | 2024-03-20 15:10 | XMS_ITS | Encounter Summary ---
Author Organization [facility] Address [address] [place] [address] Care Team Providers Care Steam Fitter Helper Name Role Phone Linda Blancas MD Primary Care Provider [phone] Encounter Details Date Type Department Care Team (Late st Contact Info) Description 07/25/2014 Orders Only [facility] - [facility] [address] [place], [place] 079561 Quita Babb PA-C 111 [facility], [address] [place] [address] Social History Tobacco Use Types [...] documented as of this encounter Functional Status Cognitive Status Response Date of Assessm ent Because of a physical, menta l, or emotional condition, do you have serious difficulty concentrating, remembering, or making decisions? (5 years old or older) No 12/13/2011 documented as of this encounter Plan of Treatment Upcoming Encounters Date Type Department Care Team (Late st Contact Info) Description 04/02/2024 10:30 EDT Appointment [facility] Interventional Radiology Unit [address] [place], [place] [phone] 04/02/2024 15:15 EDT Office Visit [facility] Surgical Oncology - [address] [phone] Adolfo Carreno MD [address] [place] [address] [phone] 04/05/2024 9:30 EDT Telemedicine [facility] Palliative Care Services [address] [place] [address] [phone] Chichi Woods MD [address] [place] [address] [phone] 04/11/2024 15:00 EDT Telemedicine [facility] Hematology & Oncology - [address] [address] Alisson Carreon MD [address] [place] [address] [phone] 04/13/2024 13:30 EDT Appointment [facility] Hematology & Oncology - [address] [phone] 04/13/2024 14:00 EDT Appointment [facility] Hematology & Oncology - [address] [address] 04/16/2024 10:00 EST Telemedicine [facility] Palliative Care Services [address] [place] [address] [phone] Chichi Woods MD [address] [place] [address] [phone] 04/24/2024 9:00 EST Appointment [facility] Radiology CT Outpatient - [address] [address] 04/24/2024 11:00 EST Appointment [facility] Breast Imaging - [facility] [address] [place], [place] 00[address]31 04/27/2024 12:00 EST Appointment [facility] Hematology & Oncology [address] [phone] 05/02/2024 15:00 EST Telemedicine [facility] Hematology & Oncology [address] [phone] Alisson Carreon MD [address] [place] [address], [address] [place] [phone] 05/04/2024 10:15 EST Ancillary Procedure [facility] Cardiology - [place] [address] 05/04/2024 11:30 EST Appointment [facility] Hematology & Oncology [address] [phone] 05/04/2024 12:00 EST Appointment [facility] Hematology & Oncology [address] [phone] 06/12/2024 13:00 EST Appointment [facility] Radiology CT - [address] [phone] documented as of this encounter Visit Diagnoses Not on filedocumented in this encounter Care Teams Steam Fitter Helper Relationship Specialty Start Date End Date Linda Blancas MD [facility] [address] [place] [address] PCP - General 01/06/11 documented as of this encounter
--- OUTSIDE RECORDS SUMMARY | 2024-03-20 15:10 | XMS_ITS | Encounter Summary ---
Author Organization [facility] Address [address] [place] [address] Care Team Providers Care Pantograph Machine Set Up Operator Name Role Phone Linda Blancas MD Primary Care Provider [phone] Encounter Details Date Type Department Care Team (Late st Contact Info) Description 10/11/2016 15:09 EDT - 10/11/2016 23:59 EDT Hospital Encounter [facility] Radiation Oncology - [facility] [address] [place] [address] Yuval Molina MD 111 [facility], [address] [place] [address] Discharge Disposition: Home or Self [...] visiting a doctor's office or shopping? No 10/21/2016 Cognitive Status Response Date of Assessm ent Because of a physical, menta l, or emotional condition, does this person have serious difficulty concentrating, remembering, or making decisions? No 10/21/2016 documented as of this encounter Discharge Diagnoses Diagnosis C50.511 Malignant neoplasm of lower-outer quadrant of right female breast-C50.511[ICD-10-CM] documented in this encounter Medications at Time [...] Code Departure Means Destination Home or Self [facility] documented in this encounter Plan of Treatment Upcoming Encounters Date Type Department Care Team (Late st Contact Info) Description 04/02/2024 10:30 EDT Appointment [facility] Interventional Radiology Unit [address] [place] [address] [phone] 04/02/2024 15:15 EDT Office Visit [facility] Surgical Oncology - [address] [phone] Adolfo Carreno MD [address] [place] [address] 2 [place] [phone] 04/05/2024 9:30 EDT Telemedicine [facility] Palliative Care Services [address] [place] [address] [phone] Chichi Woods MD [address] [place] [address] [phone] 04/11/2024 15:00 EDT Telemedicine [facility] Hematology & Oncology - [address] [phone] Alisson Carreon MD [address] [place] [address] 2 [place] [phone] 04/13/2024 13:30 EDT Appointment [facility] Hematology & Oncology - [address] [phone] 04/13/2024 14:00 EDT Appointment [facility] Hematology & Oncology - [address] [phone] 04/16/2024 10:00 EST Telemedicine [facility] - [facility] Palliative Care Services [address] [place] [address] [phone] Chichi Woods MD [address] [place] [address] [phone] 04/24/2024 9:00 EST Appointment [facility] Radiology CT Outpatient - [address] [phone] 04/24/2024 11:00 EST Appointment [facility] Breast Imaging - [address] [phone] 04/27/2024 12:00 EST Appointment [facility] Hematology & Oncology - [address] [phone] 05/02/2024 15:00 EST Telemedicine [facility] Hematology & Oncology [address] [phone] Alisson Carreon MD [address] [place] [address], Level [address] [place] [phone] 05/04/2024 10:15 EST Ancillary Procedure [facility] Cardiology - [place] [address] 05/04/2024 11:30 EST Appointment [facility] Hematology & Oncology [address] [phone] 05/04/2024 12:00 EST Appointment [facility] Hematology & Oncology [address] 115861 06/12/2024 13:00 EST Appointment [facility] Radiology CT - [address] 194731 documented as of this encounter Visit Diagnoses Not on filedocumented in this encounter Care Teams Pantograph Machine Set Up Operator Relationship Specialty Start Date End Date Linda Blancas MD [facility] [address] [place] [address] PCP - General 01/06/11 documented as of this encounter
--- OUTSIDE RECORDS SUMMARY | 2024-03-20 15:10 | XMS_ITS | Encounter Summary ---
Author Organization [facility] Address [address] [place] [address] Care Team Providers Care Hairspring Adjuster Name Role Phone Linda Blancas MD Primary Care Provider [phone] Reason for Visit * Reason Comments New Patient Visit Breast Cancer right * Consult (Routine) - Specialty Report Received Specialty Diagnoses / Procedures Referred By Doug hearn Referred To Contact Plastic Surgery Diagnoses History of breast cancer Adolfo Carreno MD [address] [facility] 2 [place] [address] Tylor Boss MD [address] [address] Referral ID Status Reason Start Date Expiration Date Visits Requested Visits Authorized [id number] Specialty Report Received Specialty Services Required 10/21/2016 1 1 Encounter Details Date Type Department Care Team (Late st Contact Info) Description 10/27/2016 15:30 EDT Office Visit [facility] Plastic, Reconstructive & Cosmetic Surgery - [address], [address] [place] [address] Tylor Boss MD [address] [address] Malignant neoplasm of right female breast, unspecified site of breast (Primary Dx) Discharge Disposition: Auto Discharge Social [...] Personal history of malignant neoplasm of breast-Z85.3[ICD-10-CM] Z03.89 Encounter for observation for other suspected diseases and conditions ruled out-Z03.89[ICD-10-CM] R59.0 Localized enlarged lymph nodes-R59.0[ICD-10-CM] R22.2 Localized swelling, mass and lump, trunk-R22.2[ICD-10-CM] documented in this encounter Discharge Disposition Disposition Code Departure Means Destination Auto Discharge documented in this encounter Progress Notes * Tylor Boss MD - 10/27/2016 1530 EDT Reason for Visit /HPI: Sunshine was seen in consultation at the request of Dr. Adolfo Carreno to discuss options for further reconstruction of her right breast. Sunshine underwent mastectomy and right breast reconstruction with what sounds like a post operatively adjustable saline implant placed by Dr. Pavan Batres. She thinks that she has a similar implant placed on the left for matching symmetry. At that time she did not receive XRT. She did have a nipple reconstruction by Dr. Carmel Galvez. She now has a what is believed to be a recurrence on the right. Biopsy results are pending. Patient Active Problems: Patient Active Problem List Diagnosis ??? Papanicolaou [...] Plantar fat pad atrophy ??? Breast lump Past Medical History: Past Medical History: Diagnosis Date ??? Allergy ??? Arthritis ??? Back pain ??? 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 Environmental allergies ??? Hearing loss ??? Numbness ??? Wears glasses Past Surgical History: Past Surgical History: Procedure Laterality Date ??? BACK SURGERY December 2011 L3 - S1 spinal decompression and fusion ??? BREAST RECONSTRUCTION 01/30/2004 subpectoral implant ??? BREAST SURGERY 01/30/2004 Right mastectomy ??? CARPAL TUNNEL RELEASE 2007 ??? LIPOMA RESECTION 2000 Family History: Family History Problem Relation Age of Onset ??? Cancer Father bladder ??? Cancer Maternal Uncle bladder ??? Breast Cancer Paternal Aunt 35 ??? Cancer Brother 59 esophageal Health Habits: Social History Substance Use Topics ??? Smoking status: Never Smoker ??? Smokeless tobacco: Never Used ??? Alcohol use 0.6 - 1.8 oz/week 1 - 3 Glasses of wine per week Medications: Outpatient Encounter Prescriptions as of 10/27/2016 Medication Sig Dispense Refill ??? calcium-vitamin D (OS-CHAR D) 500 mg(1,250mg) -200 unit per tablet Take 1 Tab by mouth 2 times daily with breakfast and dinner. ??? cetirizine (ZYRTEC) 10 mg tablet Take 10 mg by mouth daily as needed for Allergies. ??? DOXYLAMINE SUCCINATE (UNISOM ORAL) Take by [...] mouth at bedtime as needed for Sleep. No facility-administered encounter medications on file as of 10/27/2016. Allergies: Allergies Allergen Reactions ??? Amoxicillin Other (See Comments) Unknown ??? Sulfa (Sulfonamide Antibiotics) Hives Light lavender rash ROS: The patient denies neuro, endocrine, ENT, opthalmologic, pulmonary, cardiovascular, gastrointestinal, genitourinary, dermatologic, or musculoskeletal complaints other than those above. Vitals: There were no vitals taken for this visit. Physical Exam: Well developed, well nourished female in no apparent distress. She has a sternal notch to nipple distance of 24.5 cm on the left and 23.5 cm on the right. She hasgrade 2 ptosis on the left where the la posta breast has descended off the implant. Her base diameteris 12 cm? Her mastectomy scar is above the right nipple reconstruction. Her skin envelope is mildly lax She has a healing biopsy site on the left breast laterally possibly over the port. Nipple sensation is present bon the left. Assessment / Plan: 56 y.o. female with recurrent breast reconstruction. We discussed options from implant based to autologous tissue. It sounds like that she will receive post operative XRT which is not the ideal with an implant but depending on what is found at the time of surgery it may be a reasonable place to start. She understands that she will need several surgeries to provide her an adequate reconstruciton We will need her older records to figure out the dimensions of her original implants. I will also talk to Dr. Carreno to see what he plans to resect. I will see her back for a preoperative appointment I spent a total of 80 minutes in face to face time with this patient today and 75 minutes of that time was spent in counseling and coordination of care as described in the progress note. Tylor Boss MD 10/30/2016 20:06 documented in this encounter Plan of Treatment Upcoming Encounters Date Type Department Care Team (Late st Contact Info) Description 04/02/2024 10:30 EDT Appointment [facility] Interventional Radiology Unit [address] [place] [address] [phone] 04/02/2024 15:15 EDT Office Visit [facility] Surgical Oncology - [address] [phone] Adolfo Carreno MD [address] [place] [address] [phone] 04/05/2024 9:30 EDT Telemedicine [facility] Palliative Care Services [address] [place] [address] [phone] Chichi Woods MD [address] [place] [address] [phone] 04/11/2024 15:[address] [facility] Hematology & Oncology [address] 220371 Alisson Carreon MD [address] [place] [address] [phone] 04/13/2024 13:[address] [facility] Hematology & Oncology [address] 132651 04/13/2024 14:[address] [facility] Hematology & Oncology [address] [phone] 04/16/2024 10:00 EST Telemedicine [facility] - [facility] Palliative Care Services [address] [place] [address] [phone] Chichi Woods MD [address] [place] [address], [address] [phone] 04/24/2024 9:[address] [facility] Radiology CT Outpatient - [address] [id number] 04/24/2024 11:00 EST Appointment [facility] Breast Imaging - [facility] [address] [place] [address] [place], [place] 933861 04/27/2024 12:[address] [facility] Hematology & Oncology - [address] 864201 05/02/2024 15:[address] [facility] Hematology & Oncology - [address] [phone] Alisson Carreon MD [address] [place] [address], [facility], Level 2 [place] [phone] 05/04/2024 10:15 EST Ancillary Procedure [facility] Cardiology - [place] [place] [address] 05/04/2024 11:[address] [facility] Hematology & Oncology - [address] [phone] 05/04/2024 12:[address] [facility] Hematology & Oncology - [address] [phone] 06/12/2024 13:[address] [facility] Radiology CT - [address] [phone] documented as of this encounter Visit Diagnoses Diagnosis Malignant neoplasm of right female breast, unspecified site of breast- Primary documented in this encounter Care Teams Hairspring Adjuster Relationship Specialty Start Date End Date Linda Blancas MD [address] [place] [address] PCP - General 01/06/11 documented as of this encounter
--- OUTSIDE RECORDS SUMMARY | 2024-03-20 15:10 | XMS_ITS | Encounter Summary ---
Author Organization [facility] Address [address] [place] [address] Care Team Providers Care Negative Cleaner Name Role Phone Linda Blancas MD Primary Care Provider [phone] Reason for Visit * Reason Onset Date Comments New Patient Visit 10/15/2016 Breast Cancer 10/15/2016 History of right breast cancer Breast Mass 10/15/2016 new right breast lump Encounter Details Date Type Department Care Team (Late st Contact Info) Description 10/15/2016 Telephone [facility] Breast Care Center - [facility] [address] [place], [place] 456121 Francisco Javier Garland MD [address] [place] [address] [phone] New Patient Visit; Breast Cancer (History of right breast cancer); Breast Mass (new right breast lump ) Social History Tobacco Use Types Packs/Day [...] No 12/13/2011 documented as of this encounter Miscellaneous Notes * Telephone Encounter - Alesia Camara - 10/18/2016 1421 EDT Received referral to Dr. Adolfo Carreno the Breast Care Center at the [facility] from Francisco Javier Garland MD on 10/15/16 for personal history of breast cancer with new lump in same breast (right). Per nurse navigator, scheduled appt with Dr. Carreno on 10/21/16 at 10:30 AM. Requestedlast 5 years of breast imaging from [facility] on 10/18/16. Called to notify pt of appt 10/18/16; she will make this date and time work. Asked her to arrive at 10:15 AM for check-in. Transferred to Registration. Welcome Letter and New Patient Evaluation form sent to patient viasecure email. Referring provider's office notified by phone (left message for [facility] nurse triage). Patient has my direct number for any questions or for appointment changes. * Telephone Encounter - Donald Moe - 10/15/[address] Dada Meyers and pt are requesting a visit w/ Dr. Carreno for new suspicious new right breastlesion seen on 10.14.16/ Ultra sound done at [facility]. Per Mira Pt has history of right breast cancer and pt needs to be seen uday. Per Mira CD is being mailed and she is faxing notes to [phone]. Please call Mira to schedule. documented in this encounter Plan of Treatment Upcoming Encounters Date Type Department Care Team (Late st Contact Info) Description 04/02/2024 10:30 EDT Appointment [facility] Interventional Radiology Unit [address] [place] [phone] 04/02/2024 15:15 EDT Office Visit [facility] Surgical Oncology - [address] [phone] Adolfo Carreno MD 111 [facility], Level 2 [place] [phone] 04/05/2024 9:30 EDT Telemedicine [facility] [address] [place] [address] [phone] Chichi Woods MD [address] [place] [address] [phone] 04/11/2024 15:00 EDT Telemedicine [facility] Hematology & Oncology - [address] [phone] Alisson Carreon MD [address] [place] [address] 2 [place] [phone] 04/13/2024 13:30 EDT Appointment [facility] Hematology & Oncology - [address] [phone] 04/13/2024 14:00 EDT Appointment [facility] Hematology & Oncology - [address] [address] 04/16/2024 10:00 EST Telemedicine [facility] [address] [place] [address] Chichi Woods MD [address] [place] [address] [phone] 04/24/2024 9:00 EST Appointment [facility] Radiology CT Outpatient - [address] [phone] 04/24/2024 11:00 EST Appointment [facility] Breast Imaging - [address] [phone] 04/27/2024 12:00 EST Appointment [facility] Hematology & Oncology [address] [address] 05/02/2024 15:00 EST Telemedicine [facility] Hematology & Oncology [address] [address] Alisson Carreon MD [address] [place] [address], Level 2 [place] [phone] 05/04/2024 10:15 EST Ancillary Procedure [facility] Cardiology - [place] [address] 05/04/2024 11:30 EST Appointment [facility] Hematology & Oncology [address] [address] 05/04/2024 12:00 EST Appointment [facility] Hematology & Oncology [address] [phone] 06/12/2024 13:00 EST Appointment [facility] Radiology CT - [address] [phone] documented as of this encounter Visit Diagnoses Not on filedocumented in this encounter Care Teams Negative Cleaner Relationship Specialty Start Date End Date Linda Blancas MD [facility] [address] [place] [address] PCP - General 01/06/11 documented as of this encounter
--- OUTSIDE RECORDS SUMMARY | 2024-03-20 15:10 | XMS_ITS | Encounter Summary ---
Author Organization [facility] Address [address] [place] [address] Care Team Providers Care Consumer Loan Manager Name Role Phone Linda Blancas MD Primary Care Provider [phone] Reason for Visit * Reason Comments Breast Cancer * Referral (3 - 10 Business Days) - Specialty Report Received Specialty Diagnoses / Procedures Referred By [facility] t Referred To Contact Osteoporosis Diagnoses Premature ovarian failure Procedures DXA-DUAL XRAY ABSORPTIOMETRY FOR BONE DENSITY Quita Babb PA-C 111 [facility], Level 2 [place] [address] Ep[address] [place] [address] Referral ID Status Reason Start Date Expiration Date V isits Requested Visits Authorized [id number] Specialty Report Received 06/28/2014 1 1 Encounter Details Date Type Department Care Team (Latest Contact Info) Description 07/22/2014 12:30 EST Office Visit [facility] Osteoporosis - [facility] [address] [place], [place] [phone] Ochoa Oconnor MD Rad, Tech 1, MD Personal history of malignant neoplasm of breast (Primary Dx); Premature ovarian failure; History of bisphosphonate therapy; History of estrogen therapy Social History Tobacco Use Types Packs/Day [...] - Inhaled Oxygen Concentration - - Weight 74.8 kg (165 lb) 07/22/2014 1230 EST Height 156.9 cm (5' 1.77) 07/22/2014 1230 EST Body Mass Index 30.4 07/22/2014 1230 EST documented in this encounter Functional Status Cognitive Status Response Date of Assessm ent Because of a physical, menta l, or emotional condition, do you have serious difficulty concentrating, remembering, or making decisions? (5 years old or older) No 12/13/2011 documented as of this encounter Discharge Diagnoses Diagnosis V82.81 SPECIAL SCREENING FOR OSTEOPOROSIS[ICD-9-CM] 256.8 OVARIAN DYSFUNCTION NEC[ICD-9-CM] documented in this encounter Progress Notes * Ingris Monroy - 07/22/2014 1307 EST Procedure Date: 07/22/2014 Referring Physician: Quita Babb PA Previous Scan Date: 09/26/2009 ABN Necessary: No Ht 156.9 cm (61.77) Wt 74.844 kg (165 lb) BMI 30.40 kg/m2 Done AP SPINE yes FEMUR yes TOTAL BODY FOREARM LVA/VFA HEEL US PATIENT HISTORY: Patient Active Problem List Diagnosis ??? LGSIL on Pap Smear ??? Premature ovarian failure ??? Herpes simplex type 2 infection ??? Unspecified menopausal and postmenopausal disorder ??? Routine gynecological examination ??? Lumbar radicular syndrome ??? Acquired spondylolisthesis ??? Lumbosacral spondylosis without myelopathy ??? Acquired absence of breast and nipple ??? Personal history of malignant neoplasm of breast ??? Plantar fasciitis of left foot ??? Unstable right ankle ??? Hallux rigidus of right foot ??? Trigger thumb of left hand ??? Plantar fat pad atrophy Past Medical History Diagnosis Date ??? 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 Allergy ??? Wears glasses ??? Hearing loss ??? Arthritis ??? Back pain ??? Numbness ??? Environmental allergies Additional Comments: Previous/Prior Comparison? Yes Pharmacologic? No Osteoporosis Center Patient Information Ethnicity/Race: Nutrition and Exercise: Do you or have you smoked in the last 6 months? No Do you consume dairy? Yes Number of servings per day? 2 Do you take calcium supplements? Yes Amount? 1,200 mg daily Do you drink 3 or more alcoholic beverages daily? No Have you now or have you had in the past an eating disorder? No Family History: Did your mother or father have a hip fracture? No Do you have a parent or sibling who suffered a broken hip, shoulder, wrist or ribs after age 45? No Patient History-Medications: Have you taken any of the following medications or treatments. (Now or in the past)? Steroid (prednisone, cortisone, Medrol) 5mg. or more for at least 3 months? No Thyroid medication for thyroid cancer suppression? No Anticonvulsants (phenytoin, Dilantin, phenobarbital) No GnRH Agonist (for endometriosis or prostate cancer, Example - Lupron) No Depo Povera (Current use) No Aromatase inhibitor: Letrozol (Femera), Anastrozole (arimidex), No Exemestane (Aromasin) TZD's for diabetes (Actos, Avandia) No Medical History: Have you had any of the following? Hyperthyroidism (over active thyroid) No Hyperparathyroidism (over active parathyroid, high blood calcium) No Kidney failure No Rheumatoid arthritis No Seizure disorder (epilepsy) No Diabetes mellitus No Bariatric surgery/Gastric bypass No Fractures after age 40 No Area: Treatments: Alendronate (Fosamax) Never Calcitonin (Miacalcin) Never Denosumab (Prolia) Never Ibandronate (Boniva) Past use X 2 yrs - stopped 3 yrs ago Pamidronate (Aredia) Never Raloxifene (Evista) Never Risendronate (Actonel) Never Teriparatide (Forteo) Never Zoledronic Acid (Reclast, Zomata) Never Other: For Women Only: What was your age at menopause? 38 (Premature Ovarian Failure) Are you taking estrongen now or within the past year? Past use oral HRT X 5 yrs Have you been treated for breast cancer? Past (2004) * Excluded L3-L4 due to metal hardware in lower spine. Ingris Monroy 07/22/2014 13:07 documented in this encounter Plan of Treatment Upcoming Encounters Date Type Department Care Team (Late st Contact Info) Description 04/02/2024 10:30 EDT Appointment [facility] Interventional Radiology Unit [address] [place] [address] [phone] 04/02/2024 15:15 EDT Office Visit [facility] Surgical Oncology - [address] [phone] Adolfo Carerno MD [address] [place] [address] 2 [place] [phone] 04/05/2024 9:30 EDT Telemedicine [facility] Palliative Care Services [address] [place] [address] [phone] Chichi Woods MD [address] [place] [phone] 04/11/2024 15:00 EDT Telemedicine [email or web address] Hematology & Oncology [address] [phone] Alisson Carreon MD [address] [place] [address] 2 [place] [phone] 04/13/2024 13:30 EDT Appointment [email or web address] Hematology & Oncology [address] 193801 04/13/2024 14:00 EDT Appointment [email or web address] Hematology & Oncology [address] [phone] 04/16/2024 10:00 EST Telemedicine [facility] Palliative Care Services [address] [place] [address] [phone] Chichi Woods MD [address] [place] [address], [place] [address] [place] [phone] 04/24/2024 9:00 EST Appointment [facility] Radiology CT Outpatient - [address] [phone] 04/24/2024 11:00 EST Appointment [facility] Breast Imaging - [facility] [place] 1 [place], [place] 786211 04/27/2024 12:00 EST Appointment [email or web address] Hematology & Oncology [address] [phone] 05/02/2024 15:00 EST Telemedicine [email or web address]] Hematology & Oncology [address] [phone] Alisson Carreon MD [address] [place] [address], [facility], Level 2 [place] [phone] 05/04/2024 10:15 EST Ancillary Procedure [facility] Cardiology - [address] [place] [address] 05/04/2024 11:30 EST Appointment [email or web address] Hematology & Oncology - [address] [phone] 05/04/2024 12:00 EST Appointment [email or web address] Hematology & Oncology - [address] [phone] 06/12/2024 13:00 EST Appointment [facility] Radiology CT - [address] [phone] documented as of this encounter Procedures Procedure Name Priority Date/Time Associated Diagnosis Comments DXA DUAL XRAY ABSORPTIOMETRY FOR BONE DENSITY [facility]) Routine 07/25/2014 11:21 EST Premature ovarian failure documented in this encounter Results * DXA-DUAL XRAY ABSORPTIOMETRY FOR BONE DENSITY (07/25/2014 11:21 EST) DEXA Bone Density [facility] DEXA Bone Density, External [facility] Anatomical Region Laterality Modality Other 07/25/2014 11:2 1 EST Quita Babb PA-C IMG DEXA ORDER ANUSHA documented in this encounter Visit Diagnoses Diagnosis Personal history of malignant neoplasm of breast- Primary Premature ovarian failure Other ovarian dysfunction History of bisphosphonate therapy Personal history of other drug therapy History of estrogen therapy Personal history of estrogen therapy documented in this encounter Care Teams Consumer Loan Manager Relationship Specialty Start Date End Date Linda Blancas MD [facility] [address] [place] [address] PCP - General 01/06/11 documented as of this encounter
--- OUTSIDE RECORDS SUMMARY | 2024-03-20 15:10 | XMS_ITS | Encounter Summary ---
Author Organization [facility] Address [address] [place] [address] Care Team Providers Care Correctional Guard Name Role Phone Linda Blancas MD Primary Care Provider [phone] Encounter Details Date Type Department Care Team (Latest Contact Info) Description 10/04/2014 7:41 EDT - 10/04/2014 23:59 EDT Hospital Encounter [facility] [place] [address] [place] [address] Linda Blancas MD [address] [place], [place] [id number] Discharge Disposition: Home or Self Care Social [...] as of this encounter Discharge Diagnoses Diagnosis V72.5 RADIOLOGICAL EXAM NEC[ICD-9-CM] documented in this encounter Medications at Time [...] Code Departure Means Destination Home or Self Fdc documented in this encounter Plan of Treatment Upcoming Encounters Date Type Department Care Team (Late st Contact Info) Description 04/02/2024 10:30 EDT Appointment [facility] Interventional Radiology Unit [address] [place] [phone] 04/02/2024 15:15 EDT Office Visit [facility] Surgical Oncology - [address] [phone] Adolfo Carreno MD [address] [facility], Level 2 [place] [phone] 04/05/2024 9:30 EDT Telemedicine [facility] - [facility] Services [address] [place] [address] [phone] Chichi Woods MD [address] [place] [address] [phone] 04/11/2024 15:00 EDT Telemedicine [facility] Hematology & Oncology [address] [phone] Alisson Carreon MD [address] [place] [address] [address] [place] [phone] 04/13/2024 13:30 EDT Appointment [facility] Hematology & Oncology [address] [phone] 04/13/2024 14:00 EDT Appointment [facility] Hematology & Oncology [address] [phone] 04/16/2024 10:00 EST Telemedicine [facility] - [facility] [address] [place] [address] [phone] Chichi Woods MD [address] [place] [phone] 04/24/2024 9:00 EST Appointment [facility] Radiology CT Outpatient - [address] [id number] 04/24/2024 11:00 EST Appointment [facility] Breast Imaging - [address] [phone] 04/27/2024 12:00 EST Appointment [facility] Hematology & Oncology - [address] [phone] 05/02/2024 15:00 EST Telemedicine [facility] Hematology & Oncology - [address] [phone] Alisson Carreon MD 111 [facility], [facility], Level 2 [place] [phone] 05/04/2024 10:15 EST Ancillary Procedure [facility] Cardiology - [address] [place], [place] [phone] 05/04/2024 11:30 EST Appointment [facility] Hematology & Oncology - [address] [phone] 05/04/2024 12:00 EST Appointment [facility] Hematology & Oncology [address] [phone] 06/12/2024 13:00 EST Appointment [facility] Radiology CT - [address] [phone] documented as of this encounter Visit Diagnoses Not on filedocumented in this encounter Care Teams Correctional Guard Relationship Specialty Start Date End Date Linda Blancas MD [facility] [address] [place] [address] PCP - General 01/06/11 documented as of this encounter
--- OUTSIDE RECORDS SUMMARY | 2024-03-20 15:10 | XMS_ITS | Encounter Summary ---
Author Organization [facility] Address [address] [place] [address] Care Team Providers Care Artificial Insemination Technician Name Role Phone Linda Blancas MD Primary Care Provider [phone] Reason for Visit * Reason Comments New Patient Visit * Consult (Routine) - Closed Specialty Diagnoses / Procedures Referred By Doug hearn Referred To Contact Surgical Oncology Diagnoses Lump of breast, right History of right breast cancer Francisco Javier Garland MD [address] [place] [phone] Adolfo Carreno MD [address] [place] [phone] Referral ID Status Reason Start Date Expiration Date Visits Re quested Visits Authorized [id number] Closed 1 1 Encounter Details Date Type Department Care Team (Late st Contact Info) Description 10/21/2016 10:30 EDT Office Visit [facility] Surgical Oncology - [address] [phone] Adolfo Carreno MD [address] [place] [phone] Breast lump (Primary Dx) Discharge Disposition: Auto Discharge Social [...] - Inhaled Oxygen Concentration - - Weight 68.9 kg (151 lb 14.4 oz) 10/21/2016 1040 EDT Height 157 cm (5' 1.81) 10/21/2016 1040 EDT Body Mass Index 27.95 10/21/2016 1040 EDT documented in this encounter Functional Status [...] as of this encounter Discharge Diagnoses Diagnosis N63 Unspecified lump in breast-N63[ICD-10-CM] documented in this encounter Discharge Disposition Disposition Code Departure Means Destination Auto Discharge documented in this encounter Progress Notes * Adolfo Carreno MD - 10/21/2016 1030 EDT This office note has been dictated. * Adolfo Carreno MD - 10/21/2016 0000 EDT [facility] BREAST CANCER PROGRAM NEW PATIENT EVALUATION - 10/21/2016 REASON FOR EVALUATION: `The patient is seen for evaluation of a breast lump/skin lesion on the right breast. SUBJECTIVE: The patient is a 56-year-old woman known to our breast care center in 2003. She was operated on by Dr Israel Kearney from our office. 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 At that time she opted for a mastectomy with implant reconstruction on the right and an implant augmentation on the left. The surgery was done. She had a saline implant that was inflatable. The final pathology showed a 2.7 cm area of ductal carcinoma in situ. There was, however, a margin that was positive for disease in the lower outer quadrant aspect of the mastectomy. It was uncertain as to the exact location. A discussion was had at that time about additional treatments, either surgical, radiation or hormonal therapies. The patient decided not to do any additional treatments at that point. She had been doing well up until about 5 or 6 weeks ago when she noticed a whitish area on the skin, which then became a little bit larger and firmer. This was in the site where she had been getting her injections when she had her implant being and inflated with saline; thought this might be related to that. Subsequently; however, she was seen by a surgeon down in [place] area where she lives, Dr Garland, and an ultrasound and mammogram were performed. This demonstrated a mass-like area in that location that was suspicious for malignancy. The patient states she had a little bit of pain in the area initially, but that has gone. She denies any other significant complaints. PAST MEDICAL HISTORY: She has a history of premature ovarian failure at age 38 and then the right breast cancer at age 53. She had taken some hormone replacement treatments during that interval, but stopped when she had her mastectomy. She had no additional treatments either medical or radiation after her mastectomy. Other past medical history: She has had a previous spine fusion in 2011 levels L3 through S1, carpal tunnel syndrome on both right and left wrists. A lipoma removed in 2000. CURRENT MEDICATIONS: She takes a Centrum Silver vitamins, red yeast rice, calcium, Valtrex, Effexor, Neurontin and Prilosec. ALLERGIES: AMOXICILLIN, which gives her hives and SULFA which gives her a rash. SOCIAL HISTORY: The patient does not smoke and never has. Denies drinking alcohol. 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 GYNECOLOGIC HISTORY: She is 0, para 0. Age at first menstrual period is 13. She is postmenopausal. Again, had been on hormone replacement for about 5 years. REVIEW OF SYSTEMS: The patient has had frequent hot flashes. No fevers or chills or sweats, no fatigue, no weight loss, no appetite change. No eyes, ears, nose, mouth or throat problems. Denies chestpain, chest pressure, shortness of breath, nausea, vomiting, GI, , musculoskeletal, thyroid, diabetes, blood clotting or bleeding problems. FAMILY HISTORY: The patient's brother, 1 brother out of 4, had esophageal cancer at age 58. Father had lung cancer at age 87. Paternal aunt had breast cancer at age 30. Maternal uncle had bladder cancer at age 49. No other known cancer in the family. OBJECTIVE: On examination, the patient is in no acute distress. There is no scleral icterus. There are no palpable neck masses, no cervical or supraclavicular lymph nodes are palpable. There are no nodules in the thyroid gland. There are no carotid bruits or JVD. Lungs are clear to auscultation. Hea rt has a regular rate and rhythm, no S3, S4, murmurs are noted. Breast exam reveals the mastectomy on the right, in the lower outer aspect, there is an ulcerated area of the skin measuring about a 1.5 cm in size. On the left side, there are no visible skin changes. Palpation of the right breast area reveals the implant in good position. At the site of the skin ulceration is a firm area of tissue which extends down deep into that area that measures that about 2 cm in size. Again, there was ulceration of the skin from this mass, it does feel to be somewhat movable, but fairly close to the implant. No other palpable abnormalities were felt in that breast. There were no palpable lymph nodes in t he axilla. The left breast had no palpable abnormalities. There was no nipple discharge and no axillary lymphadenopathy. There were no abdominal masses, no abdominal tenderness, no hepato or splenomegaly was noted. She had good range of motion of the upper extremities without edema. DIAGNOSTIC DATA: Ultrasound evaluation of that right breast demonstrates a hypoechoic irregular mass that extends down deep close to the implant and extends slightly superior; maximum size was 2.5 cmin dimension. The remaining mastectomy site was carefully examined. This has no other abnormalitiesthat are suspicious for recurrent disease. There are no abnormal-appearing lymph nodes seen in the axilla or the internal mammary area. On the left side, the patient has normal-appearing breast glandular tissue. No architectural changes, solid or cystic abnormalities were seen. The implant was in good position on the left. No abnormal lymph nodes were seen in the internal mammary or axillary region. The patient had a mammogram of the right breast on October 14 of this year. She had a previous mammogram in November 2015 of the left breast. The right breast on recent mammogram showed no obvious abnormalities. The mammogram from November 2015 on the left side showed no suspicious abnormalities. ASSESSMENT: Based on the findings, the patient clinically has an area that is suspicious for recurrent disease. This would be in the location where her margins had been positive on her previous mastectomy, indicating that she likely had some residual DCIS that has now converted to invasive cancer. This is clinical stage T4N0, given the skin involvement and negative nodes. We would need to do a biopsy of this to confirm this. It was recommended that given its superficial nature that a punch biopsy be performed. The patient agreed. PROCEDURE: Under sterile technique, 1% lidocaine was used as a local anesthetic. 3 mm punches were used. Two separate areas were biopsied. The punches were placed in formalin solution immediately after being removed. The sites then had oozing controlled with some silver nitrate sticks. A sterile dressing with Neosporin was placed over the area. The specimens were sent in to pathology for permanent evaluation. PLAN: The plan is to notify the patient of the results of the biopsy when it becomes available. I discussed with her that I think this is almost surely going to be recurrent cancer. We will need to do a staging workup given the fact that this was a T4 lesion. This includes CT scan chest, abdomen and bone scan. The patient will need after that to be seen in our [facility] to make a definitive lior to management. From what we are seeing here, the patient would need resection of that area, which would likely go down to the implant. We would likely need to remove the implant and then she wouldneed a consideration for adjuvant radiation and systemic therapies. We will therefore plan on having the patient be seen by medical oncology, radiation oncology and plastic surgery in the near futureonce we have our diagnosis complete. Adolfo Carreno MD 01 14 PM - Adolfo Carreno MD ln Dictation ID: [id number] cc: Francisco Javier Garland MD, [facility] Surgery [address] [place], [place] [phone] Linda Blancas MD, [address] [id number] documented in this encounter Plan of Treatment Upcoming Encounters Date Type Department Care Team (Late st Contact Info) Description 04/02/2024 10:30 EDT Appointment [facility] Interventional Radiology Unit [address] [place] [address] [phone] 04/02/2024 15:15 EDT Office Visit [facility] Surgical Oncology - [address] [phone] Adolfo Carreno MD [address] [place] [address] [address] [place] [phone] 04/05/2024 9:30 EDT Telemedicine [facility] Palliative Care Services [address] [place] [address] [phone] Chichi Woods MD [address] [place] [address] [phone] 04/11/2024 15:00 EDT Telemedicine [facility] Hematology & Oncology [address] [phone] Alisson Carreon MD [address] [place] [phone] 04/13/2024 13:30 EDT Appointment [facility] Hematology & Oncology [address] [phone] 04/13/2024 14:00 EDT Appointment [facility] Hematology & Oncology [address] [phone] 04/16/2024 10:00 EST Telemedicine [facility] Palliative Care Services [address] [place] [address] [phone] Chichi Woods MD [address] [place] [address], [address] [place] [phone] 04/24/2024 9:00 EST Appointment [facility] Radiology CT Outpatient - [address] [phone] 04/24/2024 11:00 EST Appointment [facility] Breast Imaging - [facility] [address] [place], [place] [phone] 04/27/2024 12:00 EST Appointment [facility] Hematology & Oncology [address] [id number] 05/02/2024 15:00 EST Telemedicine [facility] Hematology & Oncology [address] [phone] Alisson Carreon MD [address] [place] [address], [facility], Level [address] [place] [phone] 05/04/2024 10:15 EST Ancillary Procedure [facility] Cardiology - [address] [place] [address] 05/04/2024 11:30 EST Appointment [facility] Hematology & Oncology - [address] [phone] 05/04/2024 12:00 EST Appointment [facility] Hematology & Oncology - [address] [phone] 06/12/2024 13:00 EST Appointment [facility] Radiology CT - [address] [phone] documented as of this encounter Visit Diagnoses Diagnosis Breast lump- Primary Lump or mass in breast documented in this encounter Historical Medications * This list may reflect changes made after this encounter. Medication Sig Dispensed Refills Start Date End Date zolpidem (AMBIEN) 5 mg tablet Take 5 mg by mouth at bedtime as needed for Sleep. Reported on 11/01/2016 01/13/2022 added in this encounter Care Teams Artificial Insemination Technician Relationship Specialty Start Date End Date Linda Blancas MD [facility] [address] [place] [address] PCP - General 01/06/11 documented as of this encounter
--- OUTSIDE RECORDS SUMMARY | 2024-03-20 15:10 | XMS_ITS | Encounter Summary ---
Author Organization [facility] Address [address] [place] [address] Care Team Providers Care Clinical Laboratory Technician Name Role Phone Linda Blancas MD Primary Care Provider [phone] Reason for Visit * Reason Comments Gynecologic Exam Encounter Details Date Type Department Care Team (Late st Contact Info) Description 12/27/2014 14:30 EDT Office Visit [facility] OBGYN Services - [address] [address] Quita Babb PA-C [address] [facility], Level [address] [place] [address] Routine gynecological examination (Primary Dx) Social History Tobacco Use Types [...] Sign Reading Time Taken Comments Blood Pressure 126/82 12/27/2014 1442 EDT Pulse - - Temperature - - Respiratory Rate - - Oxygen Saturation - - Inhaled Oxygen Concentration - - Weight 71.9 kg (158 lb 9.6 oz) 12/27/2014 1442 E DT Height 156.9 cm (5' 1.77) 12/27/2014 1442 EDT Body Mass Index 29.22 12/27/2014 1442 EDT documented in this encounter Functional Status Cognitive Status Response Date of Assessm ent Because of a physical, menta l, or emotional condition, do you have serious difficulty concentrating, remembering, or making decisions? (5 years old or older) No 12/13/2011 documented as of this encounter Progress Notes * Quita Babb PA - 12/27/2014 1452 EDT Subjective: Patient ID: Sunshine Pleitez is an 54 y.o. female. Chief Complaint Patient presents with ??? Gynecologic Exam HPI Chief complaint: HPI: Sunshine Pleitez is a 54 y.o. female who presents today for a yearly exam, last seen for an annual exam on one year ago. 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 Initially she was on HRT, but discontinued this after her breast cancer diagnosis. She had been on topical clonidine lotion, as well as black cohosh and kava kava (followed by Katie Marino in the past) as well as Effexor, but discontinued everything except for the Effexor (75mg daily) about 3 years ago, and had been doing fine, but then she began having [...] in the morning and at noon time. Following our visit last year, i had referred her to [facility] to discuss whether or not there were any other options available, she had heard about [facility], and wondered if this would be a good option for her. Recommendations at that visit were as follows: --recommended trying evening primrose seed oil in addition to current medication regimen --recommended developing an exercise routine, potentially a modified yoga routine that she can do with her recent spinal fusion --recommended looking into biofeedback techniques that she could learn to do when she feels a hot flush beginning --recommended that she could try Advil PM in place of Unisom to help with sleep at night --discussed potential triggers such as spicy foods, alcohol, and hot caffeinated beverages and to try and limit exposure to these as much as possible --discussed that she could consider weaning off of the Effexor to see if she notices any difference. Suspect she is getting the most benefit from the gabapentin and it would reduce her number of medications. Ultimately she decided to remain on the Effexor and the gabapentin. Overall doing well. She began having abnormal pap smears in 2005, as follows: 06/2005: ASCUS, positive HR HPV. Colposcopy 07/2005: [...] at that time NIL and negative HPV) History of STDs: yes, HSV II, on suppressive therapy with no outbreaks over the past year. Currently , monogamous relationship. Up until recently had been following with the breast care center, now 10 years out from her diagnosis, and will follow less frequently. We repeated her DEXA this past year, it showed mild osteopenia in her spine. She has been on fosamax in the past. 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 Her mother is alive, living independently, but needs help. Sendy is currently unemployed, will be looking for work. Remains , very happy in her relationship. Health Maintenance Mammogram: UTD Colonoscopy: UTD age 51, 10 year follow up Cholesterol screening: UTD through PCP DEXA: done last year Immunizations: Tetanus: UTD Gardasil NA Patient Active Problem List Diagnosis ??? LGSIL [...] Back pain ??? Numbness ??? Environmental allergies Past Surgical History Procedure Laterality Date ??? Breast surgery 01/30/2004 Right mastectomy ??? Breast reconstruction 01/30/2004 subpectoral implant ??? Carpal tunnel release 2007 ??? Lipoma resection 2000 ??? Back surgery December 2011 L3 - S1 spinal decompression and fusion Family History Problem Relation Age of Onset ??? Cancer Father bladder ??? Cancer Maternal Uncle bladder ??? Breast Cancer Paternal Aunt 35 ??? Cancer Brother 59 esophageal Social History Substance Use Topics ??? Smoking status: Never Smoker ??? Smokeless tobacco: Never Used ??? Alcohol Use: 0.6 - 1.8 oz/week 1-3 Glasses of wine per week Current Outpatient [...] mouth 2 times daily. 360 Cap 3 ??? gabapentin (NEURONTIN) 300 mg capsule Take 2 Caps by mouth at bedtime. 180 Cap 3 ??? ibuprofen (MOTRIN) 200 [...] prior to visit. Allergies Allergen Reactions ??? Sulfa (Sulfonamide Antibiotics) Hives Light lavender rash Review of Systems Constitutional: Negative. HENT: Negative. Eyes: Negative. Respiratory: Negative. Cardiovascular: Negative. Gastrointestinal: Negative. Endocrine: Negative. Genitourinary: Negative. Musculoskeletal: Negative. Skin: Negative. Allergic/Immunologic: Negative. Neurological: Negative. Hematological: Negative. Psychiatric/Behavioral: Negative. - See HPI Objective: BP 126/82 mmHg Ht 156.9 cm (61.77) Wt 71.94 kg (158 lb 9.6 oz) BMI 29.22 kg/m2 Physical Exam Constitutional: She is oriented [...] has no wheezes. She has no rales. S/p bilateral mastectomies with reconstruction, no masses or nodulartiy. Abdominal: Soft. Bowel sounds are normal. She exhibits no distension. There is no tenderness. Thereis no rebound. Genitourinary: Vagina normal and uterus normal. No vaginal discharge found. Musculoskeletal: Normal range of motion. Lymphadenopathy: She has no cervical adenopathy. She has no axillary adenopathy. Neurological: She is alert and oriented to person, place, and time. Skin: Skin is warm and dry. No erythema. No pallor. Psychiatric: She has a normal mood and affect. Her behavior is normal. Judgment and thought contentnormal. 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 Plan: There are no diagnoses linked to this encounter. 1) Pap with HPV regardless, if NIL/negative, repeat in 3 years. 2) continue regimen for hot flashes, pt getting prescriptions thorugh her pcp. 3) calcium, vitamin D, exercise for bone health. Return to office in 1 year, sooner PRN. TANK Felipe documented in this encounter Plan of Treatment Upcoming Encounters Date Type Department Care Team (Late st Contact Info) Description 04/02/2024 10:30 EDT Appointment [facility] Interventional Radiology Unit [address] [place] [address] [phone] 04/02/2024 15:15 EDT Office Visit [facility] Surgical Oncology - [address] [phone] Adolfo Carreno MD [address] [place] [address] 2 [place] [phone] 04/05/2024 9:30 EDT Telemedicine [facility] - [facility] Palliative Care Services [address] [place] [address] [phone] Chichi Woods MD [address] [place] [address], [address] [phone] 04/11/2024 15:[address] [facility] Hematology & Oncology - [address] [phone] Alisson Carreon MD [address] [place] [address] 2 [place] [phone] 04/13/2024 13:[address] [facility] Hematology & Oncology [address] [phone] 04/13/2024 14:[address] [facility] Hematology & Oncology - [address] [phone] 04/16/2024 10:00 EST Telemedicine [facility] - [facility] Palliative Care Services [address] [place] [address] [id number] Chichi Woods MD 111 [facility], [address] [phone] 04/24/2024 9:00 EST Appointment [facility] Radiology CT Outpatient - [address] [id number] 04/24/2024 11:00 EST Appointment [facility] Breast Imaging - [address] [phone] 04/27/2024 12:[address] [facility] Hematology & Oncology - [address] [phone] 05/02/2024 15:[address] [facility] Hematology & Oncology - [address] [phone] Alisson Carreon MD [address] [place] [address], [address] [place] [phone] 05/04/2024 10:15 EST Ancillary Procedure [facility] Cardiology [place] [address] [place] [address] 05/04/2024 11:[address] [facility] Hematology & Oncology - [address] [address] 05/04/2024 12:[address] [facility] Hematology & Oncology - [address] [address] 06/12/2024 13:00 EST Appointment [facility] Radiology CT - [address] [address] Scheduled Orders Name Type Priority Associated Diagnoses Orde r Schedule PAP TEST- ORDER ONLY Pathology Routine Routine gynecological examination Ordered: 12/27/2014 SCREENING PAP SMEAR;OBTAIN,PREP,CON VEY TO LAB Procedures Routine Routine gynecological examination Ordered: 12/27/2014 documented as of this encounter Visit Diagnoses Diagnosis Routine gynecological examination- Primary documented in this encounter Care Teams Clinical Laboratory Technician Relationship Specialty Start Date End Date Linda Blancas MD [facility] [address] [place] [address] PCP - General 01/06/11 documented as of this encounter
--- OUTSIDE RECORDS SUMMARY | 2024-03-20 15:10 | XMS_ITS | Encounter Summary ---
Author Organization [facility] Address [address] [place] [address] Care Team Providers Care Retail Seasonal Specialist Name Role Phone Linda Blancas MD Primary Care Provider Reason for Visit * Reason Comments Breast Cancer Encounter Details Date Type Department Care Team (Late st Contact Info) Description 11/01/2016 10:00 EDT Office Visit [facility] Radiation Oncology - [address] [phone] Yuval Molina MD 111 [facility], [address] [place] [address] Malignant neoplasm of lower-outer quadrant of right female breast (CMS-HCC) (HCC-CMS) (Primary Dx); Personal history of malignant neoplasm of breast Social History Tobacco Use Types Packs/Day Years Used Date Smoking Tobacco: Never Smokeless Tobacco: Never Tobacco Cessation:Counseling Given: Yes Alcohol Use Standard Drinks/Week Comments Yes 1 [...] - Inhaled Oxygen Concentration - - Weight 68 kg (150 lb) 11/01/2016 1009 EDT Height - - Body Mass Index 27.6 10/21/2016 1040 EDT documented in this encounter [...] as of this encounter Progress Notes * Micky Burris MD - 11/01/2016 1000 EDT Images from the original note were not included. Subjective: Patient ID: Sunshine Pleitez is an 56 y.o. female. Chief Complaint Patient presents with ??? Breast Cancer HPI Comments: Initial radiation oncology appointment for Sunshine Pleitez, who is a 56 yo womanwith right breast cancer occurring in the setting of a history of right breast DCIS. She was initially diagnosed with right breast DCIS in 2003. She underwent a mastectomy with implant reconstruction. The final pathology at the time showed a 2.7cm area of DCIS however with a positive margin in the lower outer quadrant of the mastectomy. The patient was offered adjuvant radiation and hormonal therapy but decided not to undergo these. In early September 2016, she noted a patch of skin dryness/crusting and skin indentation of her right outer lower breast. This was around the site of the port for thebreast implant she had received after her initial mastectomy and went to her PCM who ordered ultrasound and mammogram. She was referred to [facility] surgery clinic and was evaluated on and found to have an ulceration over the mass. She underwent a punch biopsy of the mass the same day, and was found to have invasive adenocarcinoma, ductal type, grade II. ER+ (80%), KY+ (20%,) HER2- (1+). CT of her chest abdomen and pelvis was performed, and she was found to have several sub-centimeter scattered nodules throughout the lungs bilaterally, with enlarged mediastinal lymph nodes. There was no evidence of malignancy in the abdomen or pelvis. She was referred to the pulmonology clinic, and she has an appointment for further pulmonary workup with Dr Gonzalez on . She currently lives in [place], [place], but had her DCIS surgery performed at [facility] as she was living in [place] at the time. She otherwise feels well. She has minimal discomfort to the area (1/10 onquestionnaire, related to biopsy), and no breast tenderness or nipple pain or discharge. No recent weight loss, nausea, vomiting, diarrhea or constipation. She notes a history of a chronic cough, but this seemed to improve about 1 year ago. PMH: Premature ovarian failure at age 38 DCIS, as above at age 43, 2003 Chronic neck pain Prior HSV Gynecologic History: Menarche at age 13, Last menses was at age 38, , was on HRT between age [age]. Social history: Never smoker, rare EtOH. Works in [employer] for a [employer], has an JEAN PI[employer]RE, , was born in [facility] Family History: Father: lung cancer, diagnosed at age 87, heavy smoker, 2 years ago Mother: Alive, no cancer Brothers: 4, 1 diagnosed with esophageal cancer who at age 62 Sisters: 1, no cancer Children: none Father's sister: breast cancer in her 30s, at age 86 Mother's brother: bladder cancer age 49, at age 50 Medications: Effexor 150mg po daily, Valtrex 500mg po daily, Gabapentin 300mg qam, 300mg qnoon, 600mg po qhs, prn ambien 5mg Multivitamin, Calcium, Red yeast rice extract Patient Active Problem List Diagnosis ??? Papanicolaou [...] atrophy ??? Breast lump Past Medical History: Diagnosis Date ??? Allergy [...] Cardiovascular: Negative. Gastrointestinal: Negative. Genitourinary: Negative. Musculoskeletal: Positive for neck pain. Skin: Positive for rash. Neurological: Negative. Endo/Heme/Allergies: Negative. Psychiatric/Behavioral: Negative. - See HPI Objective: Wt 68 kg (150 lb) BMI 27.6 kg/m2 Physical Exam Constitutional: She appears well-developed and well-nourished. HENT: Nose: Nose normal. Mouth/Throat: Oropharynx is clear. Eyes: Pupils are equal, round, and reactive to light. Pulmonary/Chest: Right breast exhibits mass and skin change. Right breast exhibits no inverted nipple, no nipple discharge and no tenderness. Left breast exhibits no inverted nipple, no mass, no nipple discharge, no skin change and no tenderness. Path of faint erythema and induration with a subcentimeter ulceration at the site of the biopsy lower outer quadrant of right breast Lymphadenopathy: She has no cervical adenopathy. Right cervical: No superficial cervical, no deep cervical and no posterior cervical adenopathy present. Left cervical: No superficial cervical, no deep cervical and no posterior cervical adenopathy present. Right axillary: No pectoral and no lateral adenopathy present. Left axillary: No pectoral and no lateral adenopathy present. Right: No supraclavicular adenopathy present. Left: No supraclavicular adenopathy present. Assessment: Invasive adenocarcinoma right breast with skin involvement in an otherwise healthy 56 yo woman who 13 years ago had right breast DCIS removed with positive margins. No axillary lymphadenopathy by physical exam today or by CT chest/abdomen/pelvis, but there is some mediastinal lymphadenopathy and several subcentimeter pulmonary nodules. Regarding staging, as she has skin involvement, she has T4 disease, but her mediastinal lymphadenopathy and pulmonary nodules need to be further evaluated. We counseled the patient that her treatmentplan will hinge on whether or not she has disease localized to the breast or spread to her mediastinum or lungs. She is scheduled to see pulmonary clinic later this week. We also counseled her that if she has localized disease, we would offer adjuvant radiation therapy to the chest wall, and possibly to the axilla if she had sherrie involvement. If she has metastatic disease, she would likely receive chemotherapy first, and we could consider adjuvant radiation if depending on her chemotherapy response. Overall though, it is premature to offer definitive plans for radiation, and we will continue to follow along pending her final staging. Finally, we counseled her regarding risks of radiation therapy should we decide to proceed with this. Risks include erythema/skin irritation to the affected breast, right pectoral muscle soreness/stiffness that may require physical therapy, and fatigue. Should she require radiation to her axilla, she has a risk of radiation pneumonitis that may last for several months. She was also counseled thatshe has a halfway but low risk of rib fracture or possible second primary cancer. Plan: Breast cancer, right breast, lower outer quadrant. -Pending final staging, with evaluation of pulmonary nodules and mediastinal lymphadenopathy -Pending medical oncology evaluation today with Dr Colin -Follow up with radiation oncology dependent on final staging and recommendations of breast multidisciplinary conference [place] BROWN, Hematology/Oncology Fellow pgr#[phone] ATTESTATION BY ATTENDING I personally reviewed the patient's history and imaging with Dr Burris and the patient was discussedwith Dr Colin. The patient was seen and examined by myself and Dr. Burris today in clinic and the risks and benefits of radiation therapy were discussed with the patient. The patient is scheduled to see Dr Colin later today and will meet with Dr Gonzalez later this week for pulmonary workup. Final treatment recommendations will depend on her full staging. Yuval Molina MD documented in this encounter Plan of Treatment Upcoming Encounters Date Type Department Care Team (Late st Contact Info) Description 04/02/2024 10:30 EDT Appointment [facility] Interventional Radiology Unit [address] [place] [id number] 04/02/2024 15:15 EDT Office Visit [facility] [place] [address] Adolfo Carreno MD 111 [facility], Level [address] [place] [phone] 04/05/2024 9:30 EDT Telemedicine [facility] Palliative Care Services [address] [place] [address] [phone] Chichi Woods MD [address] [place] [phone] 04/11/2024 15:00 EDT Telemedicine [facility] Hematology & Oncology - [address] [phone] Alisson Carreon MD [address] [place] [address] 2 [place] [phone] 04/13/2024 13:30 EDT Appointment [facility] Hematology & Oncology - [address] [phone] 04/13/2024 14:00 EDT Appointment [facility] Hematology & Oncology [address] [phone] 04/16/2024 10:00 EST Telemedicine [facility] Palliative Care Services [address] [place] [address] [phone] Chichi Woods MD [address] [place] [phone] 04/24/2024 9:00 EST Appointment [facility] Radiology CT Outpatient - [address] [phone] 04/24/2024 11:00 EST Appointment [facility] Breast Imaging - [address] [id number] 04/27/2024 12:00 EST Appointment [facility] Hematology & Oncology - [address] [address] 05/02/2024 15:00 EST Telemedicine [facility] Hematology & Oncology [address] [address] Alisson Carreon MD [address] [place] [address], [facility], [address] [place] [phone] 05/04/2024 10:15 EST Ancillary Procedure [facility] Cardiology - [address] [place] [address] 05/04/2024 11:30 EST Appointment [facility] Hematology & Oncology [address] [address] 05/04/2024 12:00 EST Appointment [facility] Hematology & Oncology [address] [phone] 06/12/2024 13:00 EST Appointment [facility] Radiology CT - [address] [id number] documented as of this encounter Visit Diagnoses Diagnosis Malignant neoplasm of lower-outer quadrant of right female breast (HCC-CMS)- Primary Malignant neoplasm of lower-outer quadrant of female breast Personal history of malignant neoplasm of breast documented in this encounter Care Teams Retail Seasonal Specialist Relationship Specialty Start Date End Date Linda Blancas MD [facility] [address] [place] [address] PCP - General 01/06/11 documented as of this encounter
--- OUTSIDE RECORDS SUMMARY | 2024-03-20 15:10 | XMS_ITS | Encounter Summary ---
Author Organization [facility] Address [address] [place] [address] Care Team Providers Care Lab Director Name Role Phone Linda Blancas MD Primary Care Provider [phone] Encounter Details Date Type Department Care Team (Late st Contact Info) Description 12/27/2014 Results Only [facility] OBGYN Services - [address] [phone] Quita Babb PA-C [address] [facility], Level 2 [place] [phone] Social History Tobacco Use Types [...] Appointment [facility] Interventional Radiology Unit [address] [place] [address] 04/02/2024 15:15 EDT Office Visit [facility] Surgical Oncology - [address] [phone] Adolfo Carreno MD [address] [place] [address] [phone] 04/05/2024 9:30 EDT Telemedicine [facility] [address] [place] [address] 157131 Chichi Woods MD [address] [place] [address] [phone] 04/11/2024 15:00 EDT Telemedicine [email or web address] Hematology & Oncology - [address] [phone] Alisson Carreon MD [address] [place] [address] [phone] 04/13/2024 13:30 EDT Appointment [email or web address]] Hematology & Oncology [address] [phone] 04/13/2024 14:00 EDT Appointment [email or web address] Hematology & Oncology - [address] [address] 04/16/2024 10:00 EST Telemedicine [facility] [address] [place] [address] [phone] Chichi Woods MD [address] [place] [address] [phone] 04/24/2024 9:00 EST Appointment [facility] Radiology CT Outpatient - [address] [address] 04/24/2024 11:00 EST Appointment [facility] Breast Imaging - [facility] [address] [place] [address] [place], [place] [address] 04/27/2024 12:00 EST Appointment [email or web address] Hematology & Oncology [address] [phone] 05/02/2024 15:00 EST Telemedicine [facility] [[email or web address]] Hematology & Oncology [address] [phone] Alisson Carreon MD [address] [place] [address], Level 2 [place] [phone] 05/04/2024 10:15 EST Ancillary Procedure [facility] Cardiology [place] [place] [address] 05/04/2024 11:30 EST Appointment [email or web address] Hematology & Oncology [address] [phone] 05/04/2024 12:00 EST Appointment [email or web address] Hematology & Oncology [address] 163621 06/12/2024 13:00 EST Appointment [facility] Radiology CT - [address] [phone] documented as of this encounter Procedures Procedure Name Priority Date/Time Associated Diagnosis Comments PAP TEST- RESULT ONLY Routine 12/27/2014 0:00 EDT documented in this encounter Results * PAP TEST- RESULT ONLY (12/27/2014 0:00 EDT) Pathology Report: CYTOPATHOLOGY REPORT Reports generated via electronic interface contain original data; however they are lacking the format of the original report. Caution should be taken when reading/interpreti ng unformatted reports. Name: ? OCONNORWEST, PARDEEP A ? Accession #: ? [id number] ? : ? 1960 (Age: 54) ??F ?Collect Date: ? 12/27/2014 ? Location: ? OBGYN ? Receive Date: ? 12/31/2014 ? Provider: QUITA FU Copy to: ? Final Report SPECIMEN ADEQUACY ? Satisfactory for Evaluation - assessment of transformation zone component not applicable ( e.g. atrophy, vaginal sample, hysterectomy) GENERAL CATEGORIZATION ? Negative for Intraepithelial Lesion or Malignancy ?? Previous Gynecologic Pathology: CHARLY: history of cervical dysplasia Specimen/Source: ??Pap Test, Cervix/Endocervix, ThinPrep Imaging System with manual evaluation Document reviewed and electronically signed by: ? YOSHI Fletcher(ASCP) ? Report ??Date: 01/06/2015 13:22 HPV with Pap Test ? Date Ordered: ? 01/06/2015 ? Status: ?? Signed Out ?Date Complete: ? 01/07/2015 ? By: ??System Interface ? Date Reported: ? 01/07/2015 ? Interpretation RESULT: Negative for HPV. No E6 or E7 mRNA is detected from HPV types 16,18,31,33,35, 39,45,51,52,56,58, 59,66, and 68 by esthetician/spa coordinator mediated amplification. Comments Document reviewed and electronically signed by: ? System Interface ? Report date: 01/07/2015 By the signature above, the attending physician certifies that he/she has personally conducted a gross and/or microscopic examination of the described specimens and rendered or confirmed the above diagnosis. End of Report [facility] 12/27/2014 12/31/2014 Quita Babb PA-C PATHOLOGY JAIMEE ACOSTA [facility] [address] [place] [address] documented in this encounter Visit Diagnoses Not on filedocumented in this encounter Care Teams Lab Director Relationship Specialty Start Date End Date Linda Blancas MD [facility] [address] [place] [address] PCP - General 01/06/11 documented as of this encounter
--- OUTSIDE RECORDS SUMMARY | 2024-03-20 15:10 | XMS_ITS | Encounter Summary ---
Author Organization [facility] Address [address] [place] [address] Care Team Providers Care Soaking Pits Supervisor Name Role Phone Linda Blancas MD Primary Care Provider [phone] Reason for Visit * Reason Comments Follow-up S/P plantar fasciiti s Encounter Details Date Type Department Care Team (Late st Contact Info) Description 09/24/2013 8:30 EDT Office Visit [facility] - [address] [address] Alex Peñaloza MD [address] [place] [phone] Plantar fasciitis of left foot (Primary Dx) Social History Tobacco Use Types Packs/Day Years Used Date Smoking Tobacco: Never Smokeless Tobacco: Never Alcohol Use Standard Drinks/Week Comments Yes 0 (1 standard drink = 0.6 oz pur [...] as of this encounter Progress Notes * Alex Peñaloza MD - 09/24/2013 1273 EDT Diagnosis: 1. Plantar fasciitis of left foot (728.71) AIRCAST SHORT WALKING BOOT (AIRCAST BOOT) Subjective: Sunshine Pleitez is being seen today for Follow-up . She was originally sent as a consultation from Dr. Barber Ms Amandeep comes in today for followup of her left plantar fasciitis. She has been in a walking cast for the last 6 weeks and has been doing quite well with no significant pain. Pain Vitals: Pain Location: Foot Wesley-Barrios Pain Rating (Scale 0-10): No hurt Numeric Pain Level (Scale 1-10): 0 Pain in another site? : No Outpatient Prescriptions Prior to Visit Medication Sig Dispense Refill [...] by mouth daily. 90 Cap 3 No facility-administered medications prior to visit. Allergies Allergen Reactions ??? Sulfa (Sulfonamide Antibiotics) Hives Light lavender rash Objective: General : alert, no distress Gait: in walking cast. Neurovascular: intact Tenderness: left: mild Swelling: left: none ROM: normal left ankle/hindfoot Imaging: none Assessment: Ms Bernstein is doing quite well and we will have her transition back to a walking boot. She will wear this all the time for 3 weeks and then transition out so that she is wearing it just as a night splint for the next 3 weeks. Plan: 1. Plantar fasciitis of left foot (728.71) AIRCAST SHORT WALKING BOOT (AIRCAST BOOT) Other Orders Placed This Visit Procedures ??? AIRCAST SHORT WALKING BOOT Immobilization: walking boot Activities: No heavy lifting or stenuous activity. Medications: none Imaging at next visit::none Follow up: Return in about 6 weeks (around 11/05/2013). Cc: Referring Provider - Dr. Barber PCP - Linda Blancas MD documented in this encounter Plan of Treatment Upcoming Encounters Date Type Department Care Team (Late st Contact Info) Description 04/02/2024 10:30 EDT Appointment [facility] Interventional Radiology Unit [address] [place] [address] [phone] 04/02/2024 15:15 EDT Office Visit [facility] Surgical Oncology - [address] [phone] Adolfo Carreno MD [address] [place] [address] [address] [place] [phone] 04/05/2024 9:30 EDT Telemedicine [facility] - [facility] Palliative [facility] Services [address] [place] [address] [phone] Chichi Woods MD [address] [place] [phone] 04/11/2024 15:00 EDT Telemedicine [facility] Hematology & Oncology - [address] [phone] Alisson Carreon MD [address] [place] [address], [facility] [address] [place] [phone] 04/13/2024 13:30 EDT Appointment [facility] Hematology & Oncology [address] [phone] 04/13/2024 14:00 EDT Appointment [facility] Hematology & Oncology [address] [address] 04/16/2024 10:00 EST Telemedicine [facility] - [facility] Palliative Care Services [address] [place] [address] [phone] Chichi Woods MD [address] [place] [address] [phone] 04/24/2024 9:00 EST Appointment [facility] Radiology CT Outpatient - [address] 856751 04/24/2024 11:00 EST Appointment [facility] Breast Imaging - [facility] S [address] [phone] 04/27/2024 12:00 EST Appointment [facility] Hematology & Oncology [address] [address]2001 05/02/2024 15:00 EST Telemedicine [facility] Hematology & Oncology [address] 597181 Alisson Carreon MD [address] [place] [address], Level [address] [place] [phone] 05/04/2024 10:15 EST Ancillary Procedure [facility] Cardiology - [place] [place] [address] 05/04/2024 11:30 EST Appointment [facility] Hematology & Oncology [address] [phone] 05/04/2024 12:00 EST Appointment [facility] Hematology & Oncology - [address] 055086 [phone] 06/12/2024 13:00 [facility] Radiology CT - Main [address] [address] documented as of this encounter Visit Diagnoses Diagnosis Plantar fasciitis of left foot- Primary Plantar fascial fibromatosis documented in this encounter Orders General Supply Count Last Ordered Date First Or dered Date AIRCAST SHORT WALKING BOOT (AIRCAST BOOT) 1 09/24/2013 documented in this encounter Care Teams Soaking Pits Supervisor Relationship Specialty Start Date End Date Linda Blancas MD [facility] [address] [place] [address] PCP - General 01/06/11 documented as of this encounter
--- OUTSIDE RECORDS SUMMARY | 2024-03-20 15:10 | XMS_ITS | Encounter Summary ---
Author Organization [facility] Address [address] [place] [address] Care Team Providers Care Engineering Technician Name Role Phone Linda Blancas MD Primary Care Provider [phone] Reason for Visit * Reason Comments Gynecologic Exam Encounter Details Date Type Department Care Team (Late st Contact Info) Description 12/21/2013 15:00 EDT Office Visit [facility] OBGYN Services - [address] [address] Quita Babb PA-C [address] [facility], Level 2 [place] [phone] Routine gynecological examination (Primary Dx) [...] Sign Reading Time Taken Comments Blood Pressure 120/80 12/21/2013 1522 EDT Pulse - - Temperature - - Respiratory Rate - - Oxygen Saturation - - Inhaled Oxygen Concentration - - Weight 70.9 kg (156 lb 6.4 oz) 12/21/2013 1522 E DT Height 157.5 cm (5' 2) 12/21/2013 1522 EDT Body Mass Index 28.61 12/21/2013 1522 EDT documented in this encounter Functional Status Cognitive Status Response Date of Assessm ent Because of a physical, menta l, or emotional condition, do you have serious difficulty concentrating, remembering, or making decisions? (5 years old or older) No 12/13/2011 documented as of this encounter Progress Notes * Quita Babb PA - 12/21/2013 1538 EDT Subjective: Patient ID: Sunshine Pleitez is an 53 y.o. female. Chief Complaint Patient presents with ??? Gynecologic Exam HPI Chief complaint: HPI: Sunshine Pleitez is a 53 y.o. female who presents today for a yearly exam, last seen for an annual exam on 12/08/12. Sendy has a history of premature ovarian [...] except for the Effexor (75mg daily) about 2 years ago, and had been doing fine, but then she began having hot flashes and night sweats again, 2-3 times daily. At that point, we increased her Effexor to 150 mg daily with little relief. Last year we had also started gabapentin, 300 mg qhs, which helped somewhat, but she continued having hot flashes during the day. She currently takes 300 mg neurontin at bedtime,and 100 mg in the morning and at noon time. Overall this helps, she wonders if at some point her hot flashes will resolve, and whether there are any new medications to try. She began having abnormal pap smears in [...] her diagnosis, and will follow less frequently. Last DEXA was in 09/20, was overall stable with some improvement. Recommended follow up in 5 years.She wonders today whether she should resume taking a bisphosphonate. This past year has been very stressful for her with family issues. She is currently unemployed, butin strong stable relationship with her , coping well with stressors. Problem List: Patient Active Problem List Diagnosis ??? LGSIL [...] foot ??? Trigger thumb of left hand Past medical history: Past Medical History Diagnosis Date ??? 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 Allergy ??? Wears glasses ??? Hearing loss ??? Arthritis ??? Back pain ??? Numbness ??? Environmental allergies Surgical History Past Surgical History Procedure Laterality Date ??? Breast surgery 01/30/2004 Right mastectomy ??? Breast reconstruction 01/30/2004 subpectoral implant ??? Carpal tunnel release 2007 ??? Lipoma resection 2000 ??? Back surgery December 2011 L3 - S1 spinal decompression and fusion Family History: Family History Problem Relation Age of Onset ??? Cancer Father bladder ??? Cancer Maternal Uncle bladder ??? Breast Cancer Paternal Aunt 35 ??? Cancer Brother 59 esophageal Health Maintenance Mammogram: UTD 09/2013 Colonoscopy: UTD, age 51 Cholesterol screening: per pcp Immunizations: Tetanus: utd Gardasil NA Social history: reports that she has never smoked. She has never used smokeless tobacco. The patient states she drinks rare per week. Employment history/work hazards currently unemployed Exercise: limited due to back pain s/p surgery, as well as foot pain from plantar fasciitis, but isgetting back into dancing. Calcium:diet, MVI Vitamin D: diet, MVI Folic Acid: diet, MVI Bicycle helmet use:NA Wears seatbelts: yes Patient Active Problem List Diagnosis ??? LGSIL [...] foot ??? Trigger thumb of left hand Past Medical History Diagnosis Date ??? Breast [...] Smokeless tobacco: Never Used ??? Alcohol Use: 0.0 oz/week 1-3 Glasses of wine per week [...] Psychiatric/Behavioral: Negative. - See HPI Objective: BP 120/80 Ht 157.5 cm (62) Wt 70.943 kg (156 lb 6.4 oz) BMI 28.6 kg/m2 Physical Exam Constitutional: She is oriented [...] no breast swelling. Breast bleeding is absent. S/p bilateral mastectomies with reconstruction. Abdominal: Soft. Bowel sounds are normal. She [...] not enlarged, not fixed and not tender. Musculoskeletal: Normal range of motion. Lymphadenopathy: She has no cervical adenopathy. She has no axillary adenopathy. Neurological: She is alert and oriented to person, place, and time. Skin: Skin is warm and dry. No erythema. No pallor. Psychiatric: She has a normal mood and affect. Her behavior is normal. Judgment and thought contentnormal. Assessment: Yearly binder chainstitch exam POF, hot flashes. History of recurrent cervical dysplasia, but now 4 years since last abnormal pap smear, with 4 x NIL and 1 x negative HPV. Plan: There are no diagnoses linked to this encounter. 1) As it is now 4 years since her last abnormal pap smear and was negative for HPV last year, will defer pap, repeat in 2 more years (3 years from last pap smear). 2) Continue Effexor and gabapentin, she had these prescriptions refilled recently by her pcp. Will continue on this. 3) Valtrex refilled by pcp as well 4) Annual mammogram. Will coordinate with breast care center if future visits with them will be necessary. 5)Colonoscopy q 10 years. Return to office in 1 year, sooner PRN. TANK Garcia documented in this encounter Plan of Treatment Upcoming Encounters Date Type Department Care Team (Late st Contact Info) Description 04/02/2024 10:30 EDT Appointment [facility] Interventional Radiology Unit [address] [place] [address] [phone] 04/02/2024 15:15 EDT Office Visit [facility] Surgical Oncology - [address] [phone] Adolfo Carreno MD [address] [place] [address] [phone] 04/05/2024 9:30 EDT Telemedicine [facility] Palliative Care Services [address] [place] [address] [phone] Chichi Woods MD [address] [place] [address] [phone] 04/11/2024 15:00 EDT Telemedicine [facility] Hematology & Oncology - [address] [address] Alisson Carreon MD [address] [place] [address] [phone] 04/13/2024 13:30 EDT Appointment [facility] Hematology & Oncology - [address] [phone] 04/13/2024 14:00 EDT Appointment [facility] Hematology & Oncology - [address] [address] 04/16/2024 10:00 EST Telemedicine [facility] Palliative Care Services [address] [place] [address] [phone] Chichi Woods MD [address] [place] [address] [phone] 04/24/2024 9:00 EST Appointment [facility] Radiology CT Outpatient - [address] [address] 04/24/2024 11:00 EST Appointment [facility] Breast Imaging - [address] [place] [address] [place] [address] 04/27/2024 12:00 EST Appointment [facility] Hematology & Oncology - [address] [address] 05/02/2024 15:00 EST Telemedicine [facility] Hematology & Oncology [address] [address] Alisson Carreon MD [address] [place] [address], [address] [place] [phone] 05/04/2024 10:15 EST Ancillary Procedure [facility] Cardiology - [address] [place] [address] 05/04/2024 11:30 EST Appointment [facility] Hematology & Oncology [address] [phone] 05/04/2024 12:00 EST Appointment [facility] Hematology & Oncology [address] [phone] 06/12/2024 13:00 EST Appointment [facility] Radiology CT - [address] [phone] documented as of this encounter Visit Diagnoses Diagnosis Routine gynecological examination- Primary documented in this encounter Historical Medications * This list may reflect changes made after this encounter. Medication Sig Dispensed Refills Start Date End Date cetirizine (ZYRTEC) 10 mg tablet Take 10 mg by mouth daily as needed for Allergies. Reported on 11/05/2016 03/16/2017 added in this encounter Care Teams Engineering Technician Relationship Specialty Start Date End Date Linda Blancas MD [facility] [address] [place] [address] PCP - General 01/06/11 documented as of this encounter
--- OUTSIDE RECORDS SUMMARY | 2024-03-20 15:10 | XMS_ITS | Encounter Summary ---
Author Organization [facility] Address [address] [place] [address] Care Team Providers Care Data Librarian Name Role Phone Linda Blancas MD Primary Care Provider [phone] Reason for Visit * Reason Comments Menopause epic hot flashes x 15 years d/t premature ovarian failure * Consult (Routine) - Specialty Report Received Specialty Diagnoses / Procedures Referred By Contact Referred To Contact Reproductive Endocrinology and Infertility Diagnoses Hot flashes, menopausal Quita Babb PA-C [address] [facility], Level [address] [place] [address] [facility] [facility] [address] [place] [address] Referral ID Status Reason Start Date Expiration Date Visits Requested Visits Authorized [id number] Specialty Report Received Specialty Services Required 06/21/2014 1 1 Encounter Details Date Type Department Care Team (Late st Contact Info) Description 07/22/2014 10:15 EST Office Visit [facility] Center Reproductive Medicine & Infertility Center - [facility] [address] [place] [address] Latanya Hernandez MD [address] [place] [address] Hot flashes, menopausal (Primary Dx); Personal history of malignant neoplasm [...] Sign Reading Time Taken Comments Blood Pressure 120/75 07/22/2014 1020 EST Pulse - - Temperature - - Respiratory Rate - - Oxygen Saturation - - Inhaled Oxygen Concentration - - Weight - - Height - - Body Mass Index - - documented in this encounter Functional Status Cognitive Status Response Date of Assessm ent Because of a physical, menta l, or emotional condition, do you have serious difficulty concentrating, remembering, or making decisions? (5 years old or older) No 12/13/2011 documented as of this encounter Progress Notes * Latanya Hernandez MD - 07/28/2014 0458 EST Patient seen with Dr. Patel and Dr. Wang. See the note by Dr. Wang for details. Latanya Hernandez MD * Antonina Wang MD - 07/22/2014 1125 EST [facility] Consultation Note Reason for Consult: Severe Hot Flashes, hx of breast cancer Consult requested by Quita Babb HPI: Sunshine is a very pleasant 53 y/o female with past medical history significant for premature ovarian failure at age 38 and DCIS of right breast s/p mastectomy in 2003 who is presenting to clinic to discuss potential alternative treatments for severe hot flashes. Patient states that after going through premature ovarian failure in her late 30s, she started having severe hot flashes. She was started on HRT and after about 3 months, her hot flashes were significantly improved. However, in 2003, she was diagnosed with DCIS of her right breast that was ER and CO positive. She underwent a bilateral mastectomy and opted to not go on Tamoxifen. Her hot flashes continued to be severe and because she could no longer be on HRT, she was started on Clonidine and Effexor. She never got much relief with these and after 5 years, she stopped the Clonidine due to difficulty with medication administration of Clonidine. She was then started on Gabapentin about 3.5 years ago and thinks she has gotten some relief, especially at nighttime. However, her hot flashes still continue to be very severe, which is why she is here today to see if there is any other potential treatments available to her. Currently, she states that she gets hot flashes about every other hour during the day. They last 4-5 minutes and are extremely debilitating. She becomes totally drenched in sweat and she feels like her head is on fire. She is able to get pretty good sleep at night though. She usually wakes up at leastonce a night with a hot flash, and at most, she wakes up twice. She is always able to go right backto sleep. She doesn't note any specific triggers, but does state that she knows stress and being emotional usually make them more intense. She is under a lot of family stress right now because her father is inhome hospice and her mother has [id number]-cvbutx dementia. She is currently traveling to [place] to care for them about every other week. She also recently lost a job, and is not currently working. With regards to exercise, she knows she has not been exercising like she should. She attributes this to having to travel to and from [place] frequently and she also had a recent spinal fusion. 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 Meds: Gabapentin 300mg in AM, 200mg in afternoon, 600mg at bedtime Effexor Valtrex Unisom Social: Denies tobacco use Occasional EtOH use (3 glasses wine/week) No Illicit drug use O: BP 120/75 Gen: NAD, overweight Alert and oriented x 3 Mood normal A/P: Sunshine Pleitez is a 53 y/o female with past medical history significant for DCIS of right breast who is presenting with long-term severe and debilitating hot flushes. Unfortunately, given her history of breast cancer, she is unable to take hormone replacement therapy. She has tried many of the alternative therapies to hormonal treatment, including SSRIs, Clonidine, and centrally-actingagents such as gabapentin. She seems to be getting a benefit from the gabapentin given she is taking an increased dose at night and is able to sleep mostly through the night. There is a new drug approved that is non- hormonal called Brisdelle, however, this works very similarly to Effexor, which sheis already taking. Therefore, we would not expect much, if any, benefit to trying this drug. We discussed a lot of behavioral modifications she could try as well as a few supplements that she could try, which included: --recommended trying evening primrose seed oil in [...] it would reduce her number of medications. At the end of the conversation, it was discussed that she could see a decrease in the frequency andseverity of the hot flushes over the next few years as she is having some decrease in the number and length of the flashes already. Patient seen and counseled by Dr. Patel. Dr. Patel spent 45 minutes in face to face time with this patient discussing the different option for management of her hotflashes. Antonina Wang MD 07/22/2014 11:54 Att I saw this patient with the resident as documented in the above note. I spent 45 minutes in face toface counseling re above issues. Tammi Patel M.D. documented in this encounter Miscellaneous Notes * Addendum Note - Tammi Patel MD - 07/28/2014 1008 ESTAddended by: TAMMI PATEL on: 07/28/2014 10:08 Modules accepted: Level of Service documented in this encounter Plan of Treatment Upcoming Encounters Date Type Department Care Team (Late st Contact Info) Description 04/02/2024 10:30 EDT Appointment [facility] Interventional Radiology Unit [address] [place] [address] [phone] 04/02/2024 15:15 EDT Office Visit [facility] Surgical Oncology - [address] [phone] Adolfo Carreno MD [address] [place] [address] [phone] 04/05/2024 9:30 EDT Telemedicine [facility] - [facility] Palliative Care Services [address] [place] [address] [phone] Chichi Woods MD [address] [place] [address] [phone] 04/11/2024 15:00 EDT Telemedicine [facility] Hematology & Oncology - [address] [phone] Alisson Carreon MD [address] [place] [address] [address] [place] [phone] 04/13/2024 13:30 EDT Appointment [facility] Hematology & Oncology - [address] [address] 04/13/2024 14:00 EDT Appointment [facility] Hematology & Oncology - [address] [address] 04/16/2024 10:00 EST Telemedicine [facility] - [facility] [address] [place] [address] [phone] Chichi Woods MD [address] [place] [address] [phone] 04/24/2024 9:00 EST Appointment [facility] Radiology CT Outpatient - [address] [address] 04/24/2024 11:00 EST Appointment [facility] Breast Imaging - [facility] [address] [place], [place] 968031 04/27/2024 12:00 EST Appointment [facility] Hematology & Oncology [address] [phone] 05/02/2024 15:00 EST Telemedicine [facility] Hematology & Oncology - [address] [address] Alisson Carreon MD [address] [place], [place] [address]ili, Level [address] [place] [phone] 05/04/2024 10:15 EST Ancillary Procedure [facility] Cardiology - [place] [address] 05/04/2024 11:30 EST Appointment [facility] Hematology & Oncology - [address] [phone] 05/04/2024 12:00 EST Appointment [facility] Hematology & Oncology - [address] [phone] 06/12/2024 13:00 EST [facility]ointment [facility] Rad[facility] - [address] [address] documented as of this encounter Visit Diagnoses Diagnosis Hot flashes, menopausal- Primary Symptomatic menopausal or female climacteric states Personal history of malignant neoplasm of breast documented in this encounter Care Teams Data Librarian Relationship Specialty Start Date End Date Linda Blancas MD [facility] [address] [place] [address] PCP - General 01/06/11 documented as of this encounter
--- OUTSIDE RECORDS SUMMARY | 2024-03-20 15:10 | XMS_ITS | Encounter Summary ---
Author Organization [facility] Address [address] [place] [address] Care Team Providers Care Experimental Physicist Name Role Phone Linda Blancas MD Primary Care Provider [phone] Encounter Details Date Type Department Care Team (Late st Contact Info) Description 10/21/2016 Results Only Imaging [facility] Surgical Oncology - [address] [phone] Adolfo Carreno MD [address] [place] [address], [address] [place] [address] Social History Tobacco Use Types [...] No 10/21/2016 documented as of this encounter Plan of Treatment Upcoming Encounters Date Type Department Care Team (Late st Contact Info) Description 04/02/2024 10:30 EDT Appointment [facility] Interventional Radiology Unit [address] [place] [address] [phone] 04/02/2024 15:15 EDT Office Visit [facility] Surgical Oncology - [address] 601121 Adolfo Carreno MD [address] [place] [address] [phone] 04/05/2024 9:30 EDT Telemedicine [facility] Palliative Care Services [address] [place] [address] [phone] Chichi Woods MD [address] [place] [address] [phone] 04/11/2024 15:00 EDT Telemedicine [facility] Hematology & Oncology [address] [phone] Alisson Carreon MD [address] [place] [address] [phone] 04/13/2024 13:30 EDT Appointment [facility] Hematology & Oncology [address] [phone] 04/13/2024 14:00 EDT Appointment [facility] Hematology & Oncology [address] [phone] 04/16/2024 10:00 EST Telemedicine [facility] Palliative Care Services [address] [place] [address] [phone] Chichi Woods MD [address] [place] [address] [phone] 04/24/2024 9:00 EST Appointment [facility] Radiology CT Outpatient - [address] [address] 04/24/2024 11:00 EST Appointment [facility] Breast Imaging - [facility] [address] [place] [address] [place] [address] 04/27/2024 12:00 EST Appointment [facility] Hematology & Oncology - [address] [address] 05/02/2024 15:00 EST Telemedicine [facility] Hematology & Oncology [address] [phone] Alisson Carreon MD [address] [place] [address], Level 2 [place] [phone] 05/04/2024 10:15 EST Ancillary Procedure [facility] Cardiology [place] [address] 05/04/2024 11:30 EST Appointment [facility] Hematology & Oncology [address] [address] 05/04/2024 12:00 EST Appointment [facility] Hematology & Oncology [address] [phone] 06/12/2024 13:00 EST Appointment [facility] Radiology CT - [address] 198741 documented as of this encounter Procedures Procedure Name Priority Date/Time Associated Diagnosis Comments [facility] ONLY 10/21/2016 12:48 EDT documented in this encounter Results * [facility] (10/21/2016 12:48 EDT) Anatomical Region Laterality Modality Other 10/21/2016 12:4 8 EDT Narrative 10/21/2016 12:48 EDT See Notes Tab. Procedure Note TEST ENGINE OPERATOR, IMAGING - 10/21/2016 See Notes Tab. Adolfo Carreno MD [facility] ORDERABLES documented in this encounter Visit Diagnoses Not on filedocumented in this encounter Care Teams Experimental Physicist Relationship Specialty Start Date End Date Linda Blancas MD [facility] [address] [place] [address] PCP - General 01/06/11 documented as of this encounter
--- OUTSIDE RECORDS SUMMARY | 2024-03-20 15:10 | XMS_ITS | Encounter Summary ---
Author Organization [facility] Address [address] [place] [address] Care Team Providers Care Stone Layout Marker Name Role Phone Linda Blancas MD Primary Care Provider [phone] Reason for Referral * Consult (Routine) - Specialty Report Received Specialty Diagnoses / Procedures Referred By Contact Referred To Contact Reproductive Endocrinology and Infertility Diagnoses Hot flashes, menopausal Quita Babb PA-C 111 [facility] 2 [place] [address] [facility] [address] [facility] [address] [place] [address] Referral ID Status Reason Start Date Expiration Date Visits Requested Visits Authorized [id number] Specialty Report Received Specialty Services Required 06/21/2014 1 1 Question Answer Reason for Request: Menopausal symptoms/hot flashes. History of premature ovarian failure, followed by breast cancer diagnosis. Pt discussed with Dr. Patel. OK to schedule with fellow. Scheduling Comments (optional ? describe specific scheduling needs if applicable): next available Reason for Visit * Reason Onset Date Comments Other 06/20/2014 Encounter Details Date Type Department Care Team (Late st Contact Info) Description 06/20/[address] [facility] Pelvic Medicine and Reconstructive Surgery - Medical Office [facility] [address] [place], [place] [address] Quita Babb PA-C 111 [facility], [address] [place] [phone] Other Social History Tobacco Use Types Packs/Day [...] Miscellaneous Notes * Telephone Encounter - Quita Babb PA - 06/21/2014 1305 EST TC returned to Sunshine (on 06/20/14, late entry). She had called the office, as she has been seeing advertisements for Brisdelle, for hot flashes, and wondering if it would help her. Sunshine is well known to us for a history of pre-mature ovarian function, initially followed by Drs. Ferrara and Osvaldo, she then had been diagnosed with breast cancer, so has been off of HRT. Has tried multiple medications for hot flashes, in the past followed by Katie Gutiérrez and on naturopathic supplements,more recently she is on Effexor XR 150 mg daily, as well as gabapentin, and she continues to have daily hot flashes. Discussed with Sunshine that I have not prescribed Brisdelle, I found that it is Paroxetine (same medication as Paxil), dosed at 75 mg at bedtime for indication of hot flashes. I do not know if it would be more beneficial than Effexor, and do not feel that it should be added to her current regimen. Given ongoing hot flashes despite current treatment, and past trials of treatment, offered referralto [facility] for further discussion to establish with Dr. Patel/fellows, with whom I can continue to consult in the future (as I have in the past with Dr. Riley), Sunshine in agreement. Referral made. Also, is due for follow up DEXA this year, order placed for this as well. documented in this encounter Plan of Treatment Upcoming Encounters Date Type Department Care Team (Late st Contact Info) Description 04/02/2024 10:[address] [facility] Interventional Radiology Unit [address] [place] [address] [phone] 04/02/2024 15:[address] [facility] Surgical Oncology - [address] [phone] Adolfo Carreno MD [address] [place] [address] [phone] 04/05/2024 9:30 EDT Telemedicine [facility] - [facility] Palliative Care Services [address] [place] [address] [phone] Chichi Woods MD [address] [place] [address] [phone] 04/11/2024 15:00 EDT Telemedicine [facility] Hematology & Oncology [address] [phone] Alisson Carreon MD [address] [place] [address] [phone] 04/13/2024 13:30 EDT Appointment [facility] Hematology & Oncology [address] [phone] 04/13/2024 14:00 EDT Appointment [facility] Hematology & Oncology [address] [phone] 04/16/2024 10:00 EST Telemedicine [facility] - [facility] Palliative Care Services [address] [place] [address] [phone] Chichi Woods MD [address] [place] [address], [address] [place] [phone] 04/24/2024 9:00 EST Appointment [facility] Radiology CT Outpatient - [address] [id number] 04/24/2024 11:[address] [facility] Breast Imaging - [facility] 1 [place], [place] 877261 04/27/2024 12:00 EST Appointment [facility] Hematology & Oncology - [address] [phone] 05/02/2024 15:00 EST Telemedicine [facility] Hematology & Oncology - [address] [address] Alisson Carreon MD [address] [place] [address], [facility], Level [address] [place] [phone] 05/04/2024 10:[address] [facility] Cardiology - [place] [address] 05/04/2024 11:30 EST Appointment [facility] Hematology & Oncology - [address] [phone] 05/04/2024 12:00 EST Appointment [facility] Hematology & Oncology [address] [phone] 06/12/2024 13:00 EST Appointment [facility] Radiology CT - [address] [phone] Scheduled Referrals Name Type Priority Associated Diagnoses Order Schedule AMB CONS/FOLLOW UP REPRODUCTIVE ENDOCRINOLOGY Outpatient Referral Routine Hot flashes, menopausal Ordered: 06/21/2014 documented as of this encounter Visit Diagnoses Diagnosis Hot flashes, menopausal- Primary Symptomatic menopausal or female climacteric states documented in this encounter Care Teams Stone Layout Marker Relationship Specialty Start Date End Date Linda Blancas MD [address] [place] [address] PCP - General 01/06/11 documented as of this encounter
--- OUTSIDE RECORDS SUMMARY | 2024-03-20 15:10 | XMS_ITS | Encounter Summary ---
Author Organization [facility] Address [address] [place] [address] Care Team Providers Care Contact Lens Lathe Operator Name Role Phone Linda Blancas MD Primary Care Provider [phone] Reason for Visit * Reason Onset Date Comments Appointment Related 12/07/2013 06/20/13 FUR Encounter Details Date Type Department Care Team (Late st Contact Info) Description 12/07/2013 Telephone [facility] Surgical Oncology - [address] [address] Anna Enriquez PA-C [address] [place] [address], [address] [place] [phone] Appointment Related (06/20/13 FUR) Social History Tobacco Use Types Packs/Day Years [...] encounter Miscellaneous Notes * Telephone Encounter - Sidra Sanchez - 12/07/2013 1424 EDT Called patient and she is 10 years out and she is going to continue to see her PLASTICS ENGINEERING TEACHER and get her mammogram once a year and she knows that if there is any thing that comes up to call us and we will get her in uday. * Telephone Encounter - Basilia Duque - 12/07/2013 1018 EDT Per pt she believes the 1 yr FUR with Anna Crooks is not needed as she is 10 yrs out and also sees her RESTAURANT FLOOR MANAGER regularly. Pt requests to have 06/20/14 visit cancelled. documented in this encounter Plan of Treatment Upcoming Encounters Date Type Department Care Team (Late st Contact Info) Description 04/02/2024 10:30 EDT Appointment [facility] Interventional Radiology Unit [address] [place] [address] [phone] 04/02/2024 15:15 EDT Office Visit [facility] Surgical Oncology - [address] [phone] Adolfo Carreno MD [address] [place] [address] 2 [place] [phone] 04/05/2024 9:30 EDT Telemedicine [facility] - [facility] Palliative Care Services [address] [place] [address] [phone] Chichi Woods MD [address] [place] [address], [address] [phone] 04/11/2024 15:00 EDT Telemedicine [facility] Hematology & Oncology - [address] [phone] Alisson Carreon MD [address] [place] [address] 2 [place] [phone] 04/13/2024 13:30 EDT Appointment [facility] Hematology & Oncology - [address] [phone] 04/13/2024 14:00 EDT Appointment [facility] Hematology & Oncology - [address] [phone] 04/16/2024 10:00 EST Telemedicine [facility] - [facility] Palliative Care Services [address] [place] [address] [phone] Chichi Woods MD [address] [place] [address], [address] [phone] 04/24/2024 9:00 EST Appointment [facility] Radiology CT Outpatient - [address] [id number] 04/24/2024 11:00 EST Appointment [facility] Breast Imaging - [facility] [address] [id number] 04/27/2024 12:00 EST Appointment [facility] Hematology & Oncology - [address] [phone] 05/02/2024 15:00 EST Telemedicine [facility] Hematology & Oncology - [address] [phone] Alisson Carreon MD [address] [place] [address], [address] [place] [phone] 05/04/2024 10:15 EST Ancillary Procedure [facility] Cardiology - [address] [place], [place] [phone] 05/04/2024 11:30 EST Appointment [facility] Hematology & Oncology - [address] [address] 05/04/2024 12:00 EST Appointment [facility] Hematology & Oncology - [address] [address] 06/12/2024 13:00 EST [facility]ointment [facility] - [facility] [address] [place] [address] documented as of this encounter Visit Diagnoses Not on filedocumented in this encounter Care Teams Contact Lens Lathe Operator Relationship Specialty Start Date End Date Linda Blancas MD [facility] [address] [place] [address] PCP - General 01/06/11 documented as of this encounter
--- OUTSIDE RECORDS SUMMARY | 2024-03-20 15:10 | XMS_ITS | Encounter Summary ---
Author Organization [facility] Address [address] [place] [address] Care Team Providers Care Controls Technician Name Role Phone Linda Blancas MD Primary Care Provider [phone] Encounter Details Date Type Department Care Team (Late st Contact Info) Description 10/21/2016 Orders Only [facility] Surgical Oncology - [address] 836191 Adolfo Carreno MD [address] [place] [address], Level 2 [place] [phone] Breast lump (Primary Dx) Social History Tobacco Use Types [...] [facility] [address] [place] [address] [phone] 04/02/2024 15:15 EDT Office Visit [facility] Surgical Oncology - [address] [phone] Adolfo Carreno MD [address] [place] [address] [phone] 04/05/2024 9:30 EDT Telemedicine [facility] Palliative Care Services [address] [place] [address] [phone] Chichi Woods MD [address] [place] [address] [phone] 04/11/2024 15:00 EDT Telemedicine [facility] Hematology & Oncology - [address] [phone] Alisson Carreon MD [address] [place] [address] [phone] 04/13/2024 13:30 EDT Appointment [facility] Hematology & Oncology [address] [phone] 04/13/2024 14:00 EDT Appointment [facility] Hematology & Oncology [address] [phone] 04/16/2024 10:00 EST Telemedicine [facility] Palliative Care Services [address] [place] [address] [phone] Chichi Woods MD [address] [place] [address] [phone] 04/24/2024 9:00 EST Appointment [facility] Radiology CT Outpatient - [address] [address] 04/24/2024 11:00 EST Appointment [facility] Breast Imaging - [facility] [place] [address] [place] [address] 04/27/2024 12:00 EST Appointment [facility] Hematology & Oncology - [address] [address] 05/02/2024 15:00 EST Telemedicine [facility] Hematology & Oncology [address] 380021 Alisson Carreon MD [address] [place] [address], Level 2 [place] [phone] 05/04/2024 10:15 EST Ancillary Procedure [facility] Cardiology - [address] [place] [address] 05/04/2024 11:30 EST Appointment [facility] Hematology & Oncology [address] [address] 05/04/2024 12:00 EST Appointment [facility] Hematology & Oncology [address] [address] 06/12/2024 13:00 EST Appointment [facility] Radiology CT - [address] [phone] Scheduled Orders Name Type Priority Associated Diagnoses Orde r Schedule SURGICAL PATHOLOGY- ORDER ONLY Pathology Routine Breast lump Ordered: 10/21/2016 documented as of this encounter Visit Diagnoses Diagnosis Breast lump- Primary Lump or mass in breast documented in this encounter Care Teams Controls Technician Relationship Specialty Start Date End Date Linda Blancas MD [facility] [address] [place] [address] PCP - General 01/06/11 documented as of this encounter
--- OUTSIDE RECORDS SUMMARY | 2024-03-20 15:10 | XMS_ITS | Encounter Summary ---
Author Organization [facility] Address [address] [place] [address] Care Team Providers Care Auto Headlight Mechanic Name Role Phone Linda Blancas MD Primary Care Provider [phone] Reason for Referral * Referral (3 - 10 Business Days) - Specialty Report Received Specialty Diagnoses / Procedures [facility] To Contact Osteoporosis Diagnoses Premature ovarian failure Procedures DXA-DUAL XRAY ABSORPTIOMETRY FOR BONE DENSITY Quita Babb PA-C [address] [place] [phone] Ep5 Osteoporosis [address] [place] [id number] Referral ID Status Reason Start Date Expiration Date V isits Requested Visits Authorized [id number] Specialty Report Received 06/28/2014 1 1 Reason for Visit * Reason Onset Date Comments Follow-up 06/21/2014 Encounter Details Date Type Department Care Team (Late st Contact Info) Description 06/21/2014 Telephone [facility] OBGYN Services - [address] [phone] Quita Babb PA-C [address] [place] [phone] Follow-up Social History Tobacco Use Types [...] Encounter - Quita Babb PA - 06/21/2014 1324 EST Order placed for DEXA. documented in this encounter Plan of Treatment Upcoming Encounters Date Type Department Care Team (Late st Contact Info) Description 04/02/2024 10:30 EDT Appointment [facility] Interventional Radiology Unit [address] [place], [place] [phone] 04/02/2024 15:15 EDT Office Visit [facility] Surgical Oncology - [address] [phone] Adolfo Carreno MD 111 [facility], Level 2 [place] [phone] 04/05/2024 9:30 EDT Telemedicine [facility] - [facility] Palliative Care Services [address] [place], [place] 852701 Chichi Woods MD 111 [facility], [address] [phone] 04/11/2024 15:00 EDT Telemedicine [facility] Hematology & Oncology - [facility] [address] [place], [place] 039001 Alisson Carreon MD [address] [place] [address], [facility] 2 [place] [phone] 04/13/2024 13:30 EDT Appointment [facility] Hematology & Oncology - [address] [phone] 04/13/2024 14:00 EDT Appointment [facility] Hematology & Oncology - [address] 802001 04/16/2024 10:00 EST Telemedicine [facility] - [facility] Palliative Care Services [address] [place] [address] [phone] Chichi Woods MD [address] [place] [address], [address] [phone] 04/24/2024 9:00 EST Appointment [facility] Radiology CT Outpatient - [address] [id number] 04/24/2024 11:00 EST Appointment [facility] Breast Imaging - [facility] S [address] 874581 04/27/2024 12:00 EST Appointment [facility] Hematology & Oncology - [address] [phone] 05/02/2024 15:00 EST Telemedicine [facility] Hematology & Oncology - [address] 590651 Alisson Carreon MD [address] [place] [address], [facility] 2 [place] [phone] 05/04/2024 10:15 EST Ancillary Procedure [facility] Cardiology - [address] [place], [place] [phone] 05/04/2024 11:30 EST Appointment [facility] Hematology & Oncology [address] [address] 05/04/2024 12:00 EST Appointment [facility] Hematology & Oncology [address] [address] 06/12/2024 13:00 EST Appointment [facility] Radiology CT - [address] [address] documented as of this encounter Results * DXA-DUAL XRAY ABSORPTIOMETRY FOR BONE DENSITY (07/25/2014 11:21 EST) DEXA Bone Density [facility] DEXA Bone Density, External [facility] Anatomical Region Laterality Modality Other 07/25/2014 11:2 1 EST Quita Babb PA-C IMG DEXA ORDER ANUSHA documented in this encounter Visit Diagnoses Diagnosis Premature ovarian failure- Primary Other ovarian dysfunction documented in this encounter Care Teams Auto Headlight Mechanic Relationship Specialty Start Date End Date Linda Blancas MD [facility] [address] [place] [address] PCP - General 01/06/11 documented as of this encounter
--- OUTSIDE RECORDS SUMMARY | 2024-03-20 15:10 | XMS_ITS | Encounter Summary ---
Author Organization [facility] Address [address] [place] [address] Care Team Providers Care Knowledge Engineer Name Role Phone Linda Blancas MD Primary Care Provider [phone] Reason for Visit * Reason Comments Follow-up S/P left plantar fas ciitis Encounter Details Date Type Department Care Team (Late st Contact Info) Description 11/07/2013 10:00 EDT Office Visit [facility] Foot & Ankle Program - [address] [address] Alex Peñaloza MD [address] [place] [phone] Plantar fasciitis of left foot (Primary [...] Progress Notes * Alex Peñaloza MD - 11/07/2013 1028 EDT Diagnosis: ICD-9-CM 1. Plantar fasciitis of left foot 728.71 AIRCAST SHORT WALKING BOOT (AIRCAST BOOT) Subjective: Sunshine Pleitez is being seen today for Follow-up . She was originally sent as a consultation from Dr. Blancas Mr Amandeep comes in today for followup of her left plantar fasciitis. She has weaned down heruse of her walking boot to just at night and has been doing great. She has no central heel pain andjust a little bit of pain at the plantar fascia origin on the calcaneus. Pain Vitals: Pain Location: Foot Wesley-Barrios Pain Rating (Scale 0-10): No hurt Numeric Pain Level (Scale 1-10): 1 Pain in another site? : No Outpatient [...] Objective: General : alert, no distress Gait: Normal. Neurovascular: intact Tenderness: left: mild Swelling: left: none ROM: normal bilateral ankle motion with intact Hill tests Imaging: none Assessment: Ms Bernstein is continuing to improve with her left plantar fasciitis. She can resume her stretching exercises on both legs, as well as gradually increase activities and gradually wean out of thewalking boot. We will see her in 3 months. Plan: ICD-9-CM 1. Plantar fasciitis of left foot 728.71 AIRCAST SHORT WALKING BOOT (AIRCAST BOOT) Other Orders Placed This Visit Procedures ??? AIRCAST SHORT WALKING BOOT Immobilization: walking boot at night, wean out as tolerated Activities: Activity as tolerated Medications: none Imaging at next visit::none Follow up: Return in about 3 months (around 02/07/2014). Cc: Referring Provider - Dr. Blancas PCP - Linda Blancas MD documented in this encounter Plan of Treatment Upcoming Encounters Date Type Department Care Team (Late st Contact Info) Description 04/02/2024 10:30 EDT Appointment [facility] Interventional Radiology Unit [address] [place] [address] [phone] 04/02/2024 15:15 EDT Office Visit [facility] Surgical Oncology - [address] [phone] Adolfo Carreno MD [address] [place] [address] [phone] 04/05/2024 9:30 EDT Telemedicine [facility] - [facility] Palliative Care Services [address] [place] [address] [phone] Chichi Woods MD [address] [place] [address] [phone] 04/11/2024 15:00 EDT Telemedicine [facility] Hematology & Oncology - [address] [phone] Alisson Carreon MD [address] [place] [address] [phone] 04/13/2024 13:30 EDT Appointment [facility] Hematology & Oncology - [address] [phone] 04/13/2024 14:00 EDT Appointment [facility] Hematology & Oncology - [address] 832011 04/16/2024 10:00 EST Telemedicine [facility] - [facility] Palliative Care Services [address] [place] [address] 410261 Chichi Woods MD [address] [place] [address] [phone] 04/24/2024 9:00 EST Appointment [facility] Radiology CT Outpatient - [address] [address] 04/24/2024 11:00 EST Appointment [facility] Breast Imaging - [facility] S [address] [phone] 04/27/2024 12:00 EST Appointment [facility] Hematology & Oncology [address] 709321 05/02/2024 15:00 EST Telemedicine [facility] Hematology & Oncology - [address] [address] Alisson Carreon MD [address] [place] [address], Level 2 [place] [phone] 05/04/2024 10:15 EST Ancillary Procedure [facility] Cardiology [place] [address] [place] [address] 05/04/2024 11:30 EST Appointment [facility] Hematology & Oncology - [address] 728361 05/04/2024 12:00 EST Appointment [facility] Hematology & Oncology - [address] [address] 06/12/2024 13:00 EST [facility]ointment [facility] Radiology CT - [address] [address] documented as of this encounter Visit Diagnoses Diagnosis Plantar fasciitis of left foot- Primary Plantar fascial fibromatosis documented in this encounter Orders General Supply Count Last Ordered Date First Or dered Date AIRCAST SHORT WALKING BOOT (AIRCAST BOOT) 1 11/07/2013 documented in this encounter Care Teams Knowledge Engineer Relationship Specialty Start Date End Date Linda Blancas MD [facility] [address] [place] [address] PCP - General 01/06/11 documented as of this encounter
--- OUTSIDE RECORDS SUMMARY | 2024-03-20 15:10 | XMS_ITS | Encounter Summary ---
Author Organization [facility] Address [address] [place] [address] Care Team Providers Care Linseed Oil Refiner Name Role Phone Linda Blancas MD Primary Care Provider [phone] Encounter Details Date Type Department Care Team (Late st Contact Info) Description 10/27/2016 8:40 EDT - 10/27/2016 23:59 EDT Hospital Encounter [address] [address] Adolfo Carreno MD 111 [facility], Level 2 [place] [phone] Discharge Disposition: Auto Discharge Social History Tobacco [...] Personal history of malignant neoplasm of breast-Z85.3[ICD-10-CM] R59.0 Localized enlarged lymph nodes-R59.0[ICD-10-CM] R22.2 Localized swelling, mass and lump, trunk-R22.2[ICD-10-CM] Z03.89 Encounter for observation for other suspected diseases and conditions ruled out-Z03.89[ICD-10-CM] documented in this encounter Medications at Time [...] EDT Appointment [facility] Interventional Radiology Unit [address] [place] [address] [phone] 04/02/2024 15:15 EDT Office Visit [facility] Surgical Oncology - [address] 899961 Adolfo Carreno MD [address] [place] [address] [phone] 04/05/2024 9:30 EDT Telemedicine [facility] Palliative Care Services [address] [place] [address] [phone] Chichi Woods MD [address] [place] [address] [phone] 04/11/2024 15:00 EDT Telemedicine [facility] Hematology & Oncology - [address] [phone] Alisson Carreon MD [address] [place] [address] [phone] 04/13/2024 13:30 EDT Appointment [facility] Hematology & Oncology [address] [phone] 04/13/2024 14:00 EDT Appointment [facility] Hematology & Oncology [address] [phone] 04/16/2024 10:00 EST Telemedicine [facility] Palliative Care Services [address] [place] [address] [phone] Chichi Woods MD [address] [place] [address] [phone] 04/24/2024 9:00 EST Appointment [facility] Radiology CT Outpatient - [address] [address] 04/24/2024 11:00 EST Appointment [facility] Breast Imaging - [facility] S [place] 1 [place] [address] 04/27/2024 12:00 EST Appointment [facility] Hematology & Oncology - [address] [address] 05/02/2024 15:00 EST Telemedicine [facility] Hematology & Oncology [address] [phone] Alisson Carreon MD [address] [place] [address], Level 2 [place] [phone] 05/04/2024 10:15 EST Ancillary Procedure [facility] Cardiology - [address] [place] [address] 05/04/2024 11:30 EST Appointment [facility] Hematology & Oncology [address] [address] 05/04/2024 12:00 EST Appointment [facility] Hematology & Oncology [address] [address] 06/12/2024 13:00 EST Appointment [facility] Radiology CT - [address] [address] documented as of this encounter Visit Diagnoses Not on filedocumented in this encounter Care Teams Linseed Oil Refiner Relationship Specialty Start Date End Date Linda Blancas MD [facility] [address] [place] [address] PCP - General 01/06/11 documented as of this encounter
--- OUTSIDE RECORDS SUMMARY | 2024-03-20 15:10 | XMS_ITS | Encounter Summary ---
Author Organization [facility] Address [address] [place] [address] Care Team Providers Care Professor Of Engineering Name Role Phone Linda Blancas MD Primary Care Provider [phone] Encounter Details Date Type Department Care Team (Latest Contact Info) Description 11/28/2015 7:35 EDT - 11/28/2015 23:59 EDT Hospital Encounter [facility] [place] 1 [place] [address] Linda Blancas MD [address] [place], [place] 6739[address] Discharge Disposition: Home or Self Care Social [...] Code Departure Means Destination Home or Self Group Home documented in this encounter Plan of Treatment Upcoming Encounters Date Type Department Care Team (Late st Contact Info) Description 04/02/2024 10:30 EDT Appointment [facility] Interventional Radiology Unit [address] [place] [address] [phone] 04/02/2024 15:15 EDT Office Visit [facility] Surgical Oncology - [facility] [address] [place], [place] 937[address] Adolfo Carreno MD 111 [facility], Level 2 [place] [phone] 04/05/2024 9:30 EDT Telemedicine [facility] Palliative Care Services [address] [place] [address] [phone] Chichi Woods MD [address] [place] [address] [phone] 04/11/2024 15:00 EDT Telemedicine [facility] Hematology & Oncology - [address] 097181 Alisson Carreon MD [address] [place] [address] 2 [place] [phone] 04/13/2024 13:30 EDT Appointment [facility] Hematology & Oncology - [address] [address] 04/13/2024 14:00 EDT Appointment [facility] Hematology & Oncology - [address] [address] 04/16/2024 10:00 EST Telemedicine [facility] Palliative Care Services [address] [place] [address] [phone] Chichi Woods MD [address] [place] [address] [phone] 04/24/2024 9:00 EST Appointment [facility] Radiology CT Outpatient - [address] 395291 04/24/2024 11:00 EST Appointment [facility] Breast Imaging - [address] [address] 04/27/2024 12:00 EST Appointment [facility] Hematology & Oncology - [address] 137461 05/02/2024 15:00 EST Telemedicine [facility] Hematology & Oncology [address] [phone] Alisson Carreon MD [address] [place] [address], Level 2 [place] [phone] 05/04/2024 10:15 EST Ancillary Procedure [facility] Cardiology - [address] [place] [address] 05/04/2024 11:30 EST Appointment [facility] Hematology & Oncology [address] 046351 05/04/2024 12:00 EST Appointment [facility] Hematology & Oncology [address] [phone] 06/12/2024 13:00 EST Appointment [facility] Radiology CT - [address] [phone] documented as of this encounter Visit Diagnoses Not on filedocumented in this encounter Care Teams Professor Of Engineering Relationship Specialty Start Date End Date Linda Blancas MD [facility] [address] [place] [address] PCP - General 01/06/11 documented as of this encounter
--- OUTSIDE RECORDS SUMMARY | 2024-03-20 15:10 | XMS_ITS | Encounter Summary ---
Author Organization [facility] Address [address] [place] [address] Care Team Providers Care [employer] Name Role Phone Linda Blancas MD Primary Care Provider [phone] Reason for Visit * Reason Comments Follow-up S/P left plantar fas ciitis Encounter Details Date Type Department Care Team (Late st Contact Info) Description 02/14/2014 10:00 EDT Office Visit [facility] - [address] [address] Alex Peñaloza MD [address] [place] [phone] Plantar fasciitis of left foot (Primary Dx); Plantar fat pad atrophy Social History Tobacco Use Types Packs/Day [...] Progress Notes * Alex Peñaloza MD - 02/14/2014 1053 EDT Diagnosis: ICD-9-CM 1. Plantar fasciitis of left foot 728.71 GENERIC DME ORDER 2. 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 She was originally sent as a consultation from Dr. Blancas Ms Xiao comes in today for followup of her left plantar fasciitis. She has been doing her stretching exercises. She says that she feels great and has occasional pain for which she uses a walking boot as a night splint once or twice a week. She is very happy with her progress. Pain Vitals: Pain Location: Foot Wesley-Barrios Pain Rating (Scale 0-10): No hurt Numeric Pain Level (Scale 1-10): 1 Pain in another site? : No Pain Quality: Sharp Pain Duration: Intermittent Outpatient Prescriptions Prior to Visit Medication Sig [...] Gait: Normal. Neurovascular: intact Tenderness: left: mild tenderness in the central heel pad Swelling: left: none ROM: normal left ankle/hindfoot Imaging: none Assessment: I think Ms Bernstein is fully recuperated from the plantar fasciitis with most of her symptoms coming from heel pad atrophy. She will continue her current treatment and will add to this soft heelpads in her shoes as needed. She will follow up as needed. Plan: ICD-9-CM 1. Plantar fasciitis of left foot 728.71 GENERIC DME ORDER 2. 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 Generic DME Order Immobilization: none Activities: Activity as tolerated Medications: none Imaging at next visit::none Follow up: Return if symptoms worsen or fail to improve. Cc: Referring Provider - Dr. Blancas PCP - Linda Blancas MD documented in this encounter Plan of Treatment Upcoming Encounters Date Type Department Care Team (Late st Contact Info) Description 04/02/2024 10:30 EDT Appointment [facility] Interventional Radiology Unit [address] [place] [phone] 04/02/2024 15:15 EDT Office Visit [facility] Surgical Oncology - [address] [phone] Adolfo Carreno MD 111 [facility] [address] [place] [phone] 04/05/2024 9:30 EDT Telemedicine [facility] - [facility] Palliative [facility] Services [address] [place] [address] [phone] Chichi Woods MD [address] [place] [address], [address] [phone] 04/11/2024 15:00 EDT Telemedicine [facility] Hematology & Oncology - [address] [phone] Alisson Carreon MD [address] [place] [address], Level [address] [place] [phone] 04/13/2024 13:30 EDT Appointment [facility] Hematology & Oncology - [address] [id number] 04/13/2024 14:00 EDT Appointment [facility] Hematology & Oncology - [address] [phone] 04/16/2024 10:00 EST Telemedicine [facility] - [facility] [address] [place] [address] [phone] Chichi Woods MD [address] [place] [address], [address] [phone] 04/24/2024 9:00 EST Appointment [facility] Radiology CT Outpatient - [address] [id number] 04/24/2024 11:00 EST Appointment [facility] Breast Imaging - [facility] S [address] [id number] 04/27/2024 12:00 EST Appointment [facility] Hematology & Oncology - [address] [phone] 05/02/2024 15:00 EST Telemedicine [facility] Hematology & Oncology - [address] [phone] Alisson Carreon MD [address] [place] [address], [address] [place] [phone] 05/04/2024 10:15 EST Ancillary Procedure [facility] Cardiology - [address] [place], [place] [phone] 05/04/2024 11:30 EST Appointment [facility] Hematology & Oncology - [address] [address] 05/04/2024 12:00 EST Appointment [facility] Hematology & Oncology [address] [address] 06/12/2024 13:00 EST Appointment [facility] Radiology CT - [address] [address] documented as of this encounter Visit Diagnoses Diagnosis Plantar fasciitis of left foot- Primary Plantar fascial fibromatosis Plantar fat pad atrophy Other musculoskeletal symptoms referable to limbs documented in this encounter Orders Equipment Count Last Ordered Date First Orde red Date GENERIC DME ORDER 1 02/14/2014 documented in this encounter Care Teams [employer] Relationship Specialty Start Date End Date Linda Blancas MD [facility] [address] [place] [address] PCP - General 01/06/11 documented as of this encounter
--- OUTSIDE RECORDS SUMMARY | 2024-03-20 15:10 | XMS_ITS | Encounter Summary ---
Author Organization [facility] Address [address] [place] [address] Care Team Providers Care Wardrobe Attendant Name Role Phone Linda Blancas MD Primary Care Provider [phone] Reason for Visit * Reason Comments Gynecologic Exam Encounter Details Date Type Department Care Team (Late st Contact Info) Description 01/02/2016 14:00 EDT Office Visit [facility] OBGYN Services - [address] [address] Quita Babb PA-C 111 [facility], Level [address] [place] [address] Encounter for gynecological examination without abnormal finding [Z01.419] (Primary Dx) Social History Tobacco Use Types [...] Sign Reading Time Taken Comments Blood Pressure 114/78 01/02/2016 1405 EDT Pulse - - Temperature - - Respiratory Rate - - Oxygen Saturation - - Inhaled Oxygen Concentration - - Weight 66.2 kg (146 lb) 01/02/2016 1405 EDT Height 156.9 cm (5' 1.77) 01/02/2016 1405 EDT Body Mass Index 26.9 01/02/2016 1405 EDT documented in this encounter Functional Status Cognitive Status Response Date of Assessm ent Because of a physical, menta l, or emotional condition, do you have serious difficulty concentrating, remembering, or making decisions? (5 years old or older) No 12/13/2011 documented as of this encounter Progress Notes * Quita Babb PA - 01/02/2016 1422 EDT Subjective: Patient ID: Sunshine Pleitez is an 55 y.o. female. Chief Complaint Patient presents with ??? Gynecologic Exam HPI Chief complaint: HPI: Sunshine Pleitez is a 55 y.o. female who presents today for a yearly exam, last seen one yearago for her annual exam. 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 Recommendations at that visit were as follows: ?? --recommended trying evening primrose seed oil in [...] and the gabapentin. Overall doing well. She also began having abnormal [...] her diagnosis, and will follow less frequently. ?? We repeated her DEXA in 07/2014 , it showed mild osteopenia in her spine. She has been on fosamax inthe past. 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 Her mother was living independently, but needed help. Over the past year, her mother's memory has worsened, and she has now been moved to an assisted living facility, so this has taken some burden off of Sendy, but she still travels tosee her weekly. 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 Health Maintenance Mammogram: UTD Colonoscopy: UTD age 51, 10 year follow up ?? Cholesterol screening: UTD through PCP ?? DEXA: done last year Immunizations: Tetanus: UTD Gardasil NA Patient Active Problem List Diagnosis ??? Papanicolaou [...] Psychiatric/Behavioral: Negative. - See HPI Objective: BP 114/78 mmHg Ht 156.9 cm (61.77) Wt 66.225 kg (146 lb) BMI 26.90 kg/m2 Physical Exam Constitutional: She is oriented [...] no breast swelling. Breast bleeding is absent. Abdominal: Soft. Bowel sounds are normal. She [...] normal. Judgment and thought contentnormal. 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 Plan: There are no diagnoses linked to this encounter. 1) has had NIL paps, and neg HPV x 2, routine screening q 5 years, due 12/2009 2) annual mammogram 3) Doing ok on current hot flash regimen, prescriptions are filled by her pcp. 4) ongoing calcium, vitamin D, exercise. Return to office in 1 year, sooner PRN. TANK Felipe documented in this encounter Plan of Treatment Upcoming Encounters Date Type Department Care Team (Late st Contact Info) Description 04/02/2024 10:30 EDT Appointment [facility] Interventional Radiology Unit [address] [place], [place] [address] 04/02/2024 15:15 EDT Office Visit [facility] Surgical Oncology - [facility] [address] [place], [place] [phone] Adolfo Carreno MD 111 [facility], [facility], Level [address] [place] [phone] 04/05/2024 9:30 EDT Telemedicine [facility] Palliative Care Services [address] [place] [address] [phone] Chichi Woods MD [address] [place] [phone] 04/11/2024 15:00 EDT Telemedicine [facility] Hematology & Oncology - [address] [phone] Alisson Carreon MD [address] [place] [address], [address] [place] [phone] 04/13/2024 13:30 EDT Appointment [facility] Hematology & Oncology - [address] [address] 04/13/2024 14:00 EDT Appointment [facility] Hematology & Oncology [address] 700221 04/16/2024 10:00 EST Telemedicine [facility] Palliative Care Services [address] [place] [address] [phone] Chichi Woods MD [address] [place] [phone] 04/24/2024 9:00 EST Appointment [facility] Radiology CT Outpatient - [address] [phone] 04/24/2024 11:00 EST Appointment [facility] Breast Imaging - [address] [phone] 04/27/2024 12:00 EST Appointment [facility] Hematology & Oncology - [address] 511021 05/02/2024 15:00 EST Telemedicine [facility] Hematology & Oncology [address] [phone] Alisson Carreon MD 111 [facility], Level [address] [place] [phone] 05/04/2024 10:15 EST Ancillary Procedure [facility] Cardiology - [address] [place] [address] 05/04/2024 11:30 EST Appointment [facility] Hematology & Oncology [address] [phone] 05/04/2024 12:00 EST Appointment [facility] Hematology & Oncology [address] [phone] 06/12/2024 13:00 EST Appointment [facility] Radiology CT - [address] [phone] documented as of this encounter Visit Diagnoses Diagnosis Encounter for gynecological examination without abnormal finding [Z01.419]- Primary Routine gynecological examination documented in this encounter Care Teams Wardrobe Attendant Relationship Specialty Start Date End Date Linda Blancas MD [facility] [address] [place] [address] PCP - General 01/06/11 documented as of this encounter
--- OUTSIDE RECORDS SUMMARY | 2024-03-20 15:10 | XMS_ITS | Encounter Summary ---
Author Organization [facility] Address [address] [place] [address] Care Team Providers Care Goods Layer Name Role Phone Linda Blancas MD Primary Care Provider [phone] Reason for Referral * Consult (Routine) - Specialty Report Received Specialty Diagnoses / Procedures [facility] Referred To Contact Plastic Surgery Diagnoses History of breast cancer Adolfo Carreno MD 111 [facility], Level [address] [place] [address] Tylor Boss MD [address] [place] [phone] Referral ID Status Reason Start Date Expiration Date Visits Requested Visits Authorized [id number] Specialty Report Received Specialty Services Required 10/21/2016 1 1 Question Answer Reason for Request: New suspicious lesion in previously reconstructed breast (implant)r Comments Stage of Cancer? New Breast Cancer Punch biopsy done 10/21 Laterality of reconstruction? (Left/Right/Bilateral) RIGHT - previously reconstructed with implant XRT Required? (Yes/No/Maybe) yes Previous XRT? No NO Chemo Required? TBD Encounter Details Date Type Department Care Team (Late st Contact Info) Description 10/21/2016 Orders Only [facility] Surgical Oncology - [address] [address] Carmel Riley RN History of breast cancer (Primary Dx) Social History Tobacco Use Types [...] [facility] Interventional Radiology Unit [address] [place] [address] [phone] 04/02/2024 15:15 EDT Office Visit [facility] Surgical Oncology - [address] [phone] Adolfo Carreno MD [address] [place] [address], [facility] [address] [place] [phone] 04/05/2024 9:30 EDT Telemedicine [facility] - [facility] Palliative Care Services [address] [place], [place] 687521 Chichi Woods MD [address] [place] [phone] 04/11/2024 15:00 EDT Telemedicine [facility] Hematology & Oncology - [address] [phone] Alisson Carreon MD [address] [place] [address], Level [address] [place] [phone] 04/13/2024 13:30 EDT Appointment [facility] Hematology & Oncology [address] [phone] 04/13/2024 14:00 EDT Appointment [facility] Hematology & Oncology - [address] [phone] 04/16/2024 10:00 EST Telemedicine [facility] - [facility] Palliative Care Services [address] [place] [address] [phone] Chichi Woods MD [address] [place] [address], [address] [phone] 04/24/2024 9:00 EST Appointment [facility] Radiology CT Outpatient - [address] [id number] 04/24/2024 11:00 EST Appointment [facility] Breast Imaging - [facility] S [address] [phone] 04/27/2024 12:00 EST Appointment [facility] Hematology & Oncology [address] 699271 05/02/2024 15:00 EST Telemedicine [facility] Hematology & Oncology - [address] [phone] Alisson Carreon MD [address] [place] [address], [address] [place] [phone] 05/04/2024 10:15 EST Ancillary Procedure [facility] Cardiology - [address] [place], [place] [phone] 05/04/2024 11:30 EST Appointment [facility] Hematology & Oncology - [address] [address] 05/04/2024 12:00 EST Appointment [facility] Hematology & Oncology [address] [address] 06/12/2024 13:00 EST [facility] Rad[facility] - [address] [address] Scheduled Referrals Name Type Priority Associated Diagnoses Orde r Schedule AMB CONS/FOLLOW UP PLASTIC SURGERY Outpatient Referral Routine History of breast cancer Ordered: 10/21/2016 documented as of this encounter Procedures Procedure Name Priority Date/Time Associated Diagnosis Comments NM BONE SCAN WHOLE BODY Routine 10/27/2016 12:[address] CHEST W CONTRAST Routine 10/27/2016 9:50 EDT documented in this encounter Results * NM BONE SCAN WHOLE BODY (10/27/2016 12:19 EDT) Anatomical Region Laterality Modality Other 10/27/2016 12:1 9 EDT 10/27/2016 13:50 EDT Narrative 10/27/2016 13:50 EDT NM BONE SCAN WHOLE BODY ??10/27/2016 12:19 PM Signs and Symptoms/Comments: ?? Z85.3-Personal history of malignant neoplasm of [id number]; h/o breast cancer 2004; new area suspicious for malignancy Technique: Xik-kyp-yrr-half hours after the IV injection of ? mCi Tc-99m MDP, standard whole body bone images were obtained. 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 There is some increased bone tracer uptake in the region of the right patellofemoral joint, both great toes as well as in the mid to upper aspect of the cervical spine on the left, most likely related to arthrosis. Patient is status post a posterior/anterior lumbar spinal fusion. There is calvarial hyperostosis. Uptake in the soft tissues is within normal limits. IMPRESSION: No osseous metastases. Procedure Note Sonny Georges MD - 10/27/2016 NM BONE SCAN WHOLE BODY 10/27/2016 12:19 PM Signs and Symptoms/Comments: Z85.3-Personal history of malignant neoplasm of [id number]; h/o breast cancer 2004; new area suspicious for malignancy Technique: Nbk-noq-ynu-half hours after the IV injection of mCi Tc-99m MDP, standard whole body bone images were obtained. 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 There is some increased bone tracer uptake in the region of the right patellofemoral joint, both great toes as well as in the mid to upper aspect of the cervical spine on the left, most likely related to arthrosis. Patient is status post a posterior/anterior lumbar spinal fusion. There is calvarial hyperostosis. Uptake in the soft tissues is within normal limits. IMPRESSION: No osseous metastases. Adolfo Carreno MD [facility] ORDERABLES * CT CHEST W CONTRAST (10/27/2016 9:50 EDT) Anatomical Region Laterality Modality Other 10/27/2016 9:50 EDT 10/27/2016 13:37 EDT Narrative 10/27/2016 13:[address] CHEST W CONTRAST ??10/27/2016 9:50 AM Clinical History/Comments: Z85.3-Personal history of malignant neoplasm of [id number]; h/o breast cancer 2004; new area suspicious for malignancy Technique: A single breath-hold helical CT acquisition [...] a dedicated PACS workstation for analysis. Comparison: None. Findings: CT of the chest performed after IV contrast administration. Lower neck: No abnormalities. Chest wall soft tissues: Lateral to the right breast implant, there is a subcutaneous region of soft tissue density with irregular margins extending to the dermis (axial series 41, image #107) Bilateral retropectoral breast implants are intact. Mediastinum and mariann: There are borderline, symmetrically enlarged mediastinal and hilar lymph nodes. ?? Heart and mediastinal vasculature: ??There is coronary atherosclerosis. Large airways: ??No abnormalities. Lungs: ??There are numerous, scattered, bilateral small nodules throughout the lungs. For example, one of the larger nodules is in the superior segment of the right lower lobe and measures 4 mm (axial series 402, image #224). Pleura: No abnormalities. Upper abdomen (limited to upper abdomen, not optimized for abdominal imaging): No abnormalities. Bones: ??No significant abnormalities. Impression: 1. ??Subcutaneous soft tissue mass lateral to right breast implant. Numerous, bilateral, small noncalcified nodules throughout the lungs. Enlarged mediastinal lymph nodes. While these findings could be benign, metastatic disease is not entirely excluded particularly without lack of a comparison study. Options include consideration of lymph node sampling via EBUS or EUS. If this is not performed, recommend short interval follow-up examination, approximately 3 months to further assess for the possibility of malignancy. 2. ??Coronary atherosclerosis. 3. ??Intact bilateral retropectoral breast implants. I have personally reviewed the images and the above interpretation and agree with the findings. Procedure Note Shady Fallon MD - 10/27/2016 CT CHEST W CONTRAST 10/27/2016 9:50 AM Clinical History/Comments: Z85.3-Personal history of malignant neoplasm of [id number]; h/o breast cancer 2004; new area suspicious for malignancy Technique: A single breath-hold helical CT acquisition [...] a dedicated PACS workstation for analysis. Comparison: None. Findings: CT of the chest performed after IV contrast administration. Lower neck: No abnormalities. Chest wall soft tissues: Lateral to the right breast implant, there is a subcutaneous region of soft tissue density with irregular margins extending to the dermis (axial series 41, image #107) Bilateral retropectoral breast implants are intact. Mediastinum and mariann: There are borderline, symmetrically enlarged mediastinal and hilar lymph nodes. Heart and mediastinal vasculature: There is coronary atherosclerosis. Large airways: No abnormalities. Lungs: There are numerous, scattered, bilateral small nodules throughout the lungs. For example, one of the larger nodules is in the superior segment of the right lower lobe and measures 4 mm (axial series 402, image #224). Pleura: No abnormalities. Upper abdomen (limited to upper abdomen, not optimized for abdominal imaging): No abnormalities. Bones: No significant abnormalities. Impression: 1. Subcutaneous soft tissue mass lateral to right breast implant. Numerous, bilateral, small noncalcified nodules throughout the lungs. Enlarged mediastinal lymph nodes. While these findings could be benign, metastatic disease is not entirely excluded particularly without lack of a comparison study. Options include consideration of lymph node sampling via EBUS or EUS. If this is not performed, recommend short interval follow-up examination, approximately 3 months to further assess for the possibility of malignancy. 2. Coronary atherosclerosis. 3. Intact bilateral retropectoral breast implants. I have personally reviewed the images and the above interpretation and agree with the findings. Adolfo Carreno MD IMG CT ORDERABLES documented in this encounter Visit Diagnoses Diagnosis History of breast cancer- Primary Personal history of malignant neoplasm of breast documented in this encounter Care Teams Goods Layer Relationship Specialty Start Date End Date Linda Blancas MD [address] [place] [address] PCP - General 01/06/11 documented as of this encounter
--- OUTSIDE RECORDS SUMMARY | 2024-03-20 15:10 | XMS_ITS | Encounter Summary ---
Author Organization [facility] Address [address] [place] [address] Care Team Providers Care Extrusion Operator Name Role Phone Linda Blancas MD Primary Care Provider [phone] Reason for Visit * Reason Onset Date Comments Appointment Related 10/28/2016 Results 10/28/2016 Encounter Details Date Type Department Care Team (Late st Contact Info) Description 10/28/2016 Telephone [facility] Surgical Oncology - [facility] [address] [place] [address] Carmel Riley RN Appointment Related; Results Social History Tobacco Use Types Packs/Day [...] No 10/21/2016 documented as of this encounter Miscellaneous Notes * Telephone Encounter - Carmel Riley RN - 10/28/2016 1041 EDT Spoke with Sendy. Relayed to her that her pathology was available and that it was positive, as expected. Still awaiting the biomarkers, however. Reviewed with her the results of her staging work-up. She is aware of the lung nodules found as well as the enlarged mediastinal LNs. Explained to her that Dr. Carreno wanted her to see a dive master. Gave her an appointment with Dr. Gonzalez on 11/04 at 10:00. Answered her questions. Over 35 min spent in discussion with Sendy. documented in this encounter Plan of Treatment Upcoming Encounters Date Type Department Care Team (Late st Contact Info) Description 04/02/2024 10:30 EDT Appointment [facility] Interventional Radiology Unit [address] [place] [address] [phone] 04/02/2024 15:15 EDT Office Visit [facility] Surgical Oncology - [address] [phone] Adolfo Carreno MD [address] [place] [address] [phone] 04/05/2024 9:30 EDT Telemedicine [facility] [address], [place] [phone] Chichi Woods MD [address] [place] [address] [phone] 04/11/2024 15:00 EDT Telemedicine [facility] Hematology & Oncology - [address] [phone] Alisson Carreon MD [address] [place] [address] 2 [place] [phone] 04/13/2024 13:30 EDT Appointment [facility] Hematology & Oncology - [address] [phone] 04/13/2024 14:00 EDT Appointment [facility] Hematology & Oncology [address] [phone] 04/16/2024 10:00 EST Telemedicine [facility] - [facility] Palliative Care Services [address] [place] [address] [phone] Chichi Woods MD [address] [place] [address], [address] [phone] 04/24/2024 9:00 EST Appointment [facility] Radiology CT Outpatient - [address] [phone] 04/24/2024 11:00 EST Appointment [facility] Breast Imaging - [facility] [address] [place] [address] [place], [place] [address] 04/27/2024 12:00 EST Appointment [facility] Hematology & Oncology - [address] [phone] 05/02/2024 15:00 EST Telemedicine [facility] Hematology & Oncology [address] [phone] Alisson Carreon MD [address] [place] [address], [facility], Level [address] [place] [phone] 05/04/2024 10:15 EST Ancillary Procedure [facility] [place]iology [place] [address] [place] [address] 05/04/2024 11:30 EST Appointment [facility] Hematology & Oncology - [address] [phone] 05/04/2024 12:00 EST Appointment [facility] Hematology & Oncology - [address] [phone] 06/12/2024 13:00 EST Appointment [facility] Radiology CT - Main [address] 086661 documented as of this encounter Visit Diagnoses Not on filedocumented in this encounter Care Teams Extrusion Operator Relationship Specialty Start Date End Date Linda Blancas MD [facility] [address] [place] [address] PCP - General 01/06/11 documented as of this encounter
--- OUTSIDE RECORDS SUMMARY | 2024-03-20 15:10 | XMS_ITS | Encounter Summary ---
Author Organization [facility] Address [address] [place] [address] Care Team Providers Care Asparagus Cutter Name Role Phone Ramses Blancas MD Primary Care Provider [phone] Encounter Details Date Type Department Care Team (Late st Contact Info) Description 10/21/2016 Results Only [facility] Surgical Oncology - [address] [phone] Adolfo Fox MD 111 [facility], Level 2 [place] [phone] Social History Tobacco Use Types [...] Appointment [facility] Interventional Radiology Unit [address] [place] [address] [phone] 04/02/2024 15:15 EDT Office Visit [facility] Surgical Oncology - [address] [phone] Adolfo Fox MD [address] [place] [address] [phone] 04/05/2024 9:30 EDT Telemedicine [facility] Palliative Care Services [address] [place] [address] [phone] Chichi Woods MD [address] [place] [address] [phone] 04/11/2024 15:00 EDT Telemedicine [facility] Hematology & Oncology [address] [phone] Alisson Carreon MD [address] [place] [address] [phone] 04/13/2024 13:30 EDT Appointment [facility] Hematology & Oncology [address] [phone] 04/13/2024 14:00 EDT Appointment [facility] Hematology & Oncology [address] [phone] 04/16/2024 10:00 EST Telemedicine [facility] Palliative Care Services [address] [place] [address] [phone] Chichi Woods MD [address] [place] [address] [phone] 04/24/2024 9:00 EST Appointment [facility] Radiology CT Outpatient - [address] [address] 04/24/2024 11:00 EST Appointment [facility] Breast Imaging - [facility] [address] [place] 1 [place] [address] 04/27/2024 12:00 EST Appointment [facility] Hematology & Oncology [address] [phone] 05/02/2024 15:00 EST Telemedicine [facility] Hematology & Oncology [address] [phone] Alisson Carreon MD [address] [place] [address], Level 2 [place] [phone] 05/04/2024 10:15 EST Ancillary Procedure [facility] Cardiology - [place] [address] 05/04/2024 11:30 EST Appointment [facility] Hematology & Oncology [address] [address] 05/04/2024 12:00 EST Appointment [facility] Hematology & Oncology [address] [phone] 06/12/2024 13:00 EST Appointment [facility] Radiology CT - [address] [phone] documented as of this encounter Procedures Procedure Name Priority Date/Time Associated Diagnosis Comments SURGICAL PATHOLOGY Routine 10/21/2016 20 :27 EDT documented in this encounter Results * SURGICAL PATHOLOGY (10/21/2016 20:27 EDT) Pathology Report: SURGICAL PATHOLOGY REPORT Reports generated via electronic interface contain original data; however they are lacking the format of the original report. Caution should be taken when reading/interpreting unformatted reports. Name: ? SUNSHINE SUBRAMANIAN ? Accession #: ? [id number] ? : ? 1960 (Age: 56) ??F ?Collect Date: ? 10/21/2016 ? Location: ? [facility] ? Receive Date: ? 10/21/2016 ? Provider: ADOLFO FOX MD Copy to: RAMSES CONNOLLY MD ? Final Pathologic Diagnosis: ----- Skin of breast, right, mass, punch biopsy: - ??Skin with involvement of epidermis and dermis by adenocarcinoma of the breast, invasive, ductal type, nuclear grade II. See comment. - ?? ___ Comment: ----- Histologic sections show an invasive ductal adenocarcinoma of the breast (confirmed by ROSAS-3 positivity) involving the epidermis and dermis. Estrogen and progesterone receptor assays and Her2 studies have been ordered on block 2 and results will be issued in separate procedure reports. Preliminary results were discussed with [facility]el [facility]16 at 4:40pm. ?? Immunoperoxidase staining was performed on this case to further characterize the lesion. ? ANTIBODY(CLONE)(BLOCK) :RESULT GATA3 ([id number], [place]) (block 2): Diffusely positive in neoplastic cells ? NOTE: ??One or more of the reagents [...] performance characteristics have been determined by the [facility]. ??The positive and negative controls worked appropriately. ??If immunoperoxidase staining has been performed on alcohol fixed cytology specimens, which has not been fully validated, the assays should be interpreted with caution and correlated with clinical data. ??This laboratory is certified under the Clinical Laboratory Improvement Amendments of 1988 (CLIA-88) as qualified to perform high complexity clinical laboratory testing. ?? ___ ? Document reviewed and electronically signed by: ? VIRGIL BOWEN MD ? Report ??Date: 10/27/2016 15:00 By the signature above, the attending physician certifies that he/she has personally conducted a gross and/or microscopic examination of the described specimens and rendered or confirmed the above diagnosis. 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 Gross Description: ? Received in formalin labelled with proper patient identification (initials O, K) and punch biopsy of skin/breast mass are two punch biopsies of moura-pink dull skin (each 0.4 cm in diameter and 0.3 cm in thickness). The specimens are each bisected and entirely submitted in 1 and 2. TANK Reaves (ASC) 10/22/2016 9:20 AM ? ESTROGEN AND PROGESTERONE RECEPTOR IMMUNOPEROXIDASE STAINS ? Date Ordered: ? 10/28/2016 ? Status: ?? Signed Out ?Date Complete: ? 10/28/2016 ? By: ??Sandhya Arrieta ? Date Reported: ? 10/28/2016 ? Interpretation SKIN OF BREAST, RIGHT, PUNCH BIOPSY: - Skin with involvement of epidermis and dermis by adenocarcinoma of the breast. - Positive for estrogen receptors (in 80% of tumor cells). - Nuclear staining intensity: ??Strong. - Positive for progesterone receptors (in 20% of tumor cells). - Nuclear staining intensity: ??Moderate to strong. Comment Cold ischemic time and total formalin fixation time appropriate: ??Yes. ? Description Tissue submitted: Paraffin embedded tissue block labelled [id number] (#2) from [facility]. Immunohistochemical assays for estrogen receptors (SP1, [place]) and progesterone receptors (16, [place]ica) have been [...] with estrogen receptor modulators such as Tamoxifen. ?? Reference: ??ASCO-CAP Guideline Recommendations for IHC testing of ER and SD. J Clin Oncol 2010;28:6098-3889. NOTE: ??One or more of the reagents [...] reagents' performance characteristics have been determined by [facility]. This laboratory is certified under the Clinical Laboratory Improvement Amendments of 1988 (CLIA-88) as qualified to perform high complexity clinical laboratory testing. Document reviewed and electronically signed by: ? VIRGIL BOWEN MD ? Report date: 10/28/2016 By the signature above, the attending physician certifies that he/she has personally conducted a gross and/or microscopic examination of the described specimens and rendered or confirmed the above diagnosis. ESTROGEN AND PROGESTERONE RECEPTOR IMMUNOPEROXIDASE STAINS ? Date Ordered: ? 10/29/2016 ? Status: ?? Signed Out ?Date Complete: ? 10/29/2016 ? By: ??Racheal Arce ? Date Reported: ? 10/29/2016 ? Interpretation SKIN OF BREAST, RIGHT, PUNCH BIOPSY: - Skin with involvement of epidermis and dermis by adenocarcinoma of the breast. SEE COMMENT. ?? - Positive for estrogen receptors (in 80% of tumor cells). - Nuclear staining intensity: Strong. - Positive for progesterone receptors (in 20% of tumor cells). - Nuclear staining intensity: Moderate to strong. Comment Cold ischemic time and total formalin fixation time appropriate: ??CANNOT BE DETERMINED. ??(Dr. Bowen)/samia This addendum is issued to correct the cold ischemic time and total formalin fixation time as cannot be determined. ??The ER/SD report, otherwise, remains unchanged. ??(Dr. Bowen)/samia Description ?ADDENDUM Tissue submitted: Paraffin embedded tissue block labelled [id number] (#2) from [facility]. Immunohistochemical assays for estrogen receptors (SP1, [place]) and progesterone receptors (16, [place]ica) have been [...] with estrogen receptor modulators such as Tamoxifen. ?? Reference: ??ASCO-CAP Guideline Recommendations for IHC testing of ER and SD. J Clin Oncol 2010;28:1934-6442. NOTE: ??One or more of the reagents [...] reagents' performance characteristics have been determined by [facility]. This laboratory is certified under the Clinical Laboratory Improvement Amendments of 1988 (CLIA-88) as qualified to perform high complexity clinical laboratory testing. Document reviewed and electronically signed by: ? VIRGIL BOWEN MD ? Report date: 10/29/2016 By the signature above, the attending physician certifies that he/she has personally conducted a gross and/or microscopic examination of the described specimens and rendered or confirmed the above diagnosis. Her 2 IMMUNOPEROXIDASE REPORT ? Date Ordered: ? 10/29/2016 ? Status: ?? Signed Out ?Date Complete: ? 10/29/2016 ? By: ??Racheal Arce ? Date Reported: ? 10/29/2016 ? Interpretation ASSAY RESULTS Her2 SCORE: ?1+ TUMOR LOCATION: Skin of right breast, lower outer quadrant ? COLD ISCHEMIC TIME AND TOTAL FORMALIN FIXATIVE TIME APPROPRIATE: Cannot determine CELLS WITH COMPLETE MEMBRANE STAINING: None MEMBRANE STAINING INTENSITY: Faint to moderate and granular PARTIAL MEMBRANE STAINING: Present in 30% of cells CYTOPLASMIC STAINING: Faint STAINING PATTERN: Heterogeneous STAINING IN BENIGN EPITHELIUM: N/A THE HER2 ASSAY PERFORMED IS INTERPRETED NEGATIVE. ?? Comment An additional test for Her2 gene amplification will be performed by in situ hybridization (ANNE MARIE), the results of which will be issued in a separate report. (Dr. Bowen)/ljn Description Tissue submitted: Paraffin embedded tissue block labelled [id number] (2) from [facility] ? Fixative: ??Formalin ??(This immunohistochemical assay is intended for paraffin-embedded tissue fixed in 10% neutral buffered formalin for 6-72 hours; 18-24 hours with maximum tissue thickness of 3-4 millimeters is recommended for best assay performance. ??Her2 should not be performed on alcohol fixed tissues.) The assay was performed under appropriate conditions according to the light bulb assembler's instructions with appropriate assay and tissue controls using an Anti-Her2 (4B5) Rabbit Monoclonal Antibody ([place]). Her2 IHC Scoring Guidelines (invasive tumor component [...] ? VIRGIL BOWEN MD ? Report date: 10/29/2016 By the signature above, the attending physician certifies that he/she has personally conducted a gross and/or microscopic examination of the described specimens and rendered or confirmed the above diagnosis. Her2 GENE AMPLIFICATION BY IN-SITU HYBRIDIZATION (ANNE MARIE) ? Date Ordered: ? 10/29/2016 ? Status: ?? Signed Out ?Date Complete: ? 10/29/2016 ? By: ??Racheal Arce ? Date Reported: ? 10/29/2016 ? Interpretation Description Tissue submitted: Paraffin embedded tissue block labelled [id number] (2) from [facility] ? Specimen type: ??Skin of right breast punch biopsy An in-situ hybridization (ANNE MARIE) assay for Her2 gene amplification status ([place] INFORM dual ANNE MARIE DNA probe) was performed on this specimen. ??The assay was performed under appropriate conditions according to the light bulb assembler's instructions with appropriate assay and tissue controls. [...] (www.jco.org Mar 19, 2013) Results: Her2/Chr17 ratio: 1.30 Average Her2 signals per tumor cell nucleus: ? 2.4 Average Chr17 signals per tumor cell nucleus: ? 1.85 Tumor location: ?Skin of right breast; lower outer quadrant Interpretation: ?Non-amplified The invasive tumor nuclei have no evidence of Her2 gene amplification. ??The results suggest the tumor has two copies of chromosome 17 with a normal Her2 gene copy number. ??(Dr. Bowen)/samia ?? Document reviewed and electronically signed by: ? VIRGIL BOWEN MD ? Report date: 10/29/2016 By the signature above, the attending physician certifies that he/she has personally conducted a gross and/or microscopic examination of the described specimens and rendered or confirmed the above diagnosis. End of Report [facility] 10/21/2016 20:2 7 EDT 10/21/2016 20:27 EDT Adolfo Fox MD PATHOLOGY ORDERABLES [facility] [address] [place] [address] documented in this encounter Visit Diagnoses Not on filedocumented in this encounter Care Teams Asparagus Cutter Relationship Specialty Start Date End Date Ramses Blancas MD [facility] [address] [place] [address] PCP - General 01/06/11 documented as of this encounter
--- OUTSIDE RECORDS SUMMARY | 2024-03-20 15:10 | XMS_ITS | Encounter Summary ---
Author Organization [facility] Address [address] [place] [address] Care Team Providers Care Keyliner Name Role Phone Linda Blancas MD Primary Care Provider [phone] Encounter Details Date Type Department Care Team (Late st Contact Info) Description 10/18/2016 Results Only Imaging [facility] [place]OLOGY [address], [place] 203[address] Betzaida Tracy MD 111 [facility] 1 [place] [phone] Social History Tobacco Use Types Packs/Day Years [...] Contact Info) Description 04/02/2024 10:30 EDT Appointment [facility] Interventional Radiology Unit [address], [place] [phone] 04/02/2024 15:15 EDT Office Visit [facility] Surgical Oncology - [address] 275351 Adolfo Carreno MD [address] [place] [address] [phone] 04/05/2024 9:30 EDT Telemedicine [facility] Palliative Care Services [address] [place] [address] [phone] Chichi Woods MD [address] [place] [address] [phone] 04/11/2024 15:00 EDT Telemedicine [facility] Hematology & Oncology - [address] [address] Alisson Carreon MD [address] [place] [address] [phone] 04/13/2024 13:30 EDT Appointment [facility] Hematology & Oncology [address] [phone] 04/13/2024 14:00 EDT Appointment [facility] Hematology & Oncology - [address] [address] 04/16/2024 10:00 EST Telemedicine [facility] Palliative Care Services [address] [place] [address] [phone] Chichi Woods MD [address] [place] [address] [phone] 04/24/2024 9:00 EST Appointment [facility] Radiology CT Outpatient - [address] [phone] 04/24/2024 11:00 EST Appointment [facility] Breast Imaging - [facility] [address] [place] 1 [place] [address] 04/27/2024 12:00 EST Appointment [facility] Hematology & Oncology - [address] [address] 05/02/2024 15:00 EST Telemedicine [facility] Hematology & Oncology [address] [address] Alisson Carreon MD [address] [place] [address], Level 2 [place] [phone] 05/04/2024 10:15 EST Ancillary Procedure [facility] Cardiology - [address] [place] [address] 05/04/2024 11:30 EST Appointment [facility] Hematology & Oncology - [address] [address] 05/04/2024 12:00 EST Appointment [facility] Hematology & Oncology [address] [address] 06/12/2024 13:00 EST Appointment [facility] Radiology CT - [address] 029851 Pending Results Name Type Priority Associated Diagnoses Date /Time OUTSIDE IMAGES - US BREAST Imaging 10/14/2016 6:52 EDT OUTSIDE IMAGES - MAMMO BREAST Imaging 10/14/2016 6:52 EDT documented as of this encounter Visit Diagnoses Not on filedocumented in this encounter Care Teams Keyliner Relationship Specialty Start Date End Date Linda Blancas MD [facility] [address] [place] [address] PCP - General 01/06/11 documented as of this encounter
--- OUTSIDE RECORDS SUMMARY | 2024-03-20 15:10 | XMS_ITS | Encounter Summary ---
Author Organization [facility] Address [address] [place] [address] Care Team Providers Care Manager Tax Name Role Phone Linda Blnacas MD Primary Care Provider [phone] Reason for Referral * Consult (Routine) - Closed Specialty Diagnoses / Procedures Referred By Contac t Referred To Contact Cancer Genetics Diagnoses Personal history of malignant neoplasm of breast Augustina Colin MD PhD Referral ID Status Reason Start Date Expiration Date V isits Requested Visits Authorized [id number] Closed Specialty Services Required 11/01/2016 1 1 Question Answer Reason for Request: Patient w breast cancer age 43; Now with skin recurrence Scheduling Comments (optional ? describe specific scheduling needs if applicable): This thur if at all possible Reason for Visit * Reason Comments New Patient Visit Encounter Details Date Type Department Care Team (Late st Contact Info) Description 11/01/2016 13:00 EDT Office Visit [facility] Hematology & Oncology - [facility] [address] [place] [address] Augustina Colin MD PhD Personal history of [...] Sign Reading Time Taken Comments Blood Pressure 146/62 11/01/2016 1311 EDT Pulse 86 11/01/2016 1311 EDT Temperature 36.6 ??C (97.9 ??F) 11/01/2016 1311 EDT Respiratory Rate 16 11/01/2016 1311 EDT Oxygen Saturation 97% 11/01/2016 1311 EDT Inhaled Oxygen Concentration - - Weight 68.8 kg (151 lb 11.2 oz) 11/01/2016 1311 EDT Height 156.6 cm (5' 1.65) 11/01/2016 1311 EDT Body Mass Index 28.06 11/01/2016 1311 EDT documented in this encounter Functional Status [...] Progress Notes * Augustina Colin MD - 11/01/2016 1300 EDT This office note has been dictated. documented in this encounter Consult Notes * Augustina Colin MD - 11/01/2016 0000 EDT [facility] HEMATOLOGY AND ONCOLOGY CONSULTATION - 11/01/2016 REQUESTING PHYSICIAN: Linda Blancas MD REASON FOR REQUEST: Discussion of medical oncology management in a patient with an estrogen-receptor positive breast cancer recurrence. HISTORY OF PRESENT ILLNESS: HPI is obtained from patient interview and [...] was then seen by Dr Garland in [facility] and an ultrasound was performed, identifying an irregular heterogeneous soft tissue mass measuring 1.2 x 1.2 x 1.5 cm. She was then seen by Dr Carreno on 10/21/2016. Two punch biopsies were performed near the site of the skin changes the left breast area. 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 HER-2 1+ by IHC. ANNE MARIE revealed a HER-2 to chromosome 17 ratio of 1.3 and was nonamplified. The adenocarcinoma was involved in the epidermis and dermis of the skin. Staging scans were pursued. The CT scan of the chest identified numerous scattered bilateral nodules throughout the lungs, the largest measuring 4 mm. The soft tissue mass was identified near the right breast implant. She was also found to have enlarged mediastinal lymph nodes. A CT scan of the abdomen and nuclear bone scan were without evidence of m alignancy. Ms Holley-West postmenopausal, having had premature ovarian failure at age 38. She is . She has a paternal aunt who had breast cancer in her 30s. She took hormone replacement therapy for about5 years after the premature ovarian failure and discontinued it at the time of her breast cancer diagnosis. PAST MEDICAL HISTORY: Premature ovarian failure, DCIS, gastroesophageal reflux disease. PAST SURGICAL HISTORY: Lipoma resection in 2000, carpal tunnel surgeries in 2007, right mastectomy with reconstruction and a left augmentation in 2003, spine decompression and fusion at L3-S1 2011. ALLERGIES: AMOXICILLIN, which causes hives, SULFA, which causes a rash. MEDICATIONS: Calcium and vitamin D twice a day. Zyrtec p.r.n. Unisom p.r.n. Neurontin 300 mg a.m., 600 mg p.m. Motrin p.r.n. Multivitamin daily. Omeprazole 20 mg daily. Red yeast rice extract daily. Valacyclovir 500 mg daily. Effexor 150 mg daily. Ambien 5 mg daily. FAMILY HISTORY: Paternal aunt with breast cancer in her 30s, of a different condition in her 80s. Father with lung cancer. Maternal uncle with bladder cancer at age 49. Brother with esophageal cancer at age 58. SOCIAL HISTORY: The patient is . She lives in the [facility]. She does not use tobacco anddoes not drink alcohol. 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 She exercises regularly. She does a great deal of caregiving for her 90-year-old mother and she travels to [place] almost every weekend. REVIEW OF SYSTEMS: A 10-point review of systems is obtained and documented on the new patient evaluation form. Other than described in the subjective, she notes hot flashes that are controlled to some extent with gabapentin and Effexor. OBJECTIVE: Vital signs: Blood pressure 146/62, pulse 86. Weight 68.8 kg, height 156.6 cm, respiratory rate 16, O2 saturation 97%, temperature 36.6. ECOG performance status 0. General: The patient is comfortable, cooperative, in no apparent distress. HEENT: Pupils are equal, round and reactive to light. Extraocular muscles are intact. Oral mucosa is moist. No mucosal lesions are identified. No cervical or supraclavicular lymphadenopathy. Lungs are clear to auscultation bilaterally and resonant to percussion. Cardiovascular: Regular rate and rhythm, no murmurs, rubs or gallops. Abdomen: Positive bowel sounds, soft, nontender, nondistended, no hepatosplenomegaly appreciated. Extremities: No clubbing, cyanosis or edema. No calf tenderness. Neuro: Alert and oriented x3 and grossly neurologically intact. ASSESSMENT: Ms Bernstein is a 56-year-old female who has a skin recurrence after being diagnosed with ductal carcinoma in situ in 2003. She had multifocal disease and had a right total mastectomy, but with a positive margin. Additional surgery could not be completed. She declined XRT and antiestrogen therapy. She now is identified to have a skin recurrence with the pathology identifying an invasive adenocarcinoma, which is estrogen-receptor positive at 80%, progesterone-receptor positive 20% and HER-2 negative. Clinically and by imaging, there are no enlarged right axillary lymph nodes. She staging CT scans. She was found to have multiple bilateral very small nodules and increase in the size of mediastinal lymph nodes. This is suspicious for metastatic disease. She will be meeting with Dr Gonzalez in 2 days for further evaluation of the mediastinal lymph nodes and new lung nodules. She would most likely proceed with a biopsy of one of the lymph nodes given the small size of the pulmonary nodules. PLAN: 1. Additional oncologic management. The patient will meet with Dr Gonzalez. A biopsy will be performed. The remaining oncological interventions would be based on the results of that biopsy. 2. Antiestrogen therapy. Whether or not the biopsy of the mediastinal lymph nodes is consistent with metastatic breast cancer, we would recommend antiestrogen therapy. The antiestrogen therapy of choice in a postmenopausal woman would be an aromatase inhibitor. She reports that she has had bone density scans in the past and feels that there is some decrease in bone density, but she does not have osteoporosis and is not on any intervention for osteoporosis. We would plan to get a bone density scan at some time after starting the aromatase inhibitor. We explained that the medically concerning side effects of aromatase inhibitors is loss of bone density. Additional side effects discussed include hot flashes, vaginal dryness and joint aches and discomfort. If we are using antiestrogen therapyin an adjuvant manner, we would likely recommend it for 10 years. 3. Chemotherapy. Given that this is a skin recurrence, it does increase my concern for a distant recurrence. However, at the time of surgery we would have more information about the extent of diseaseand the potential need for chemotherapy. It is possible that we would consider Oncotype DX testing. 4. The patient will see Dr Gonzalez and she will need a biopsy of the mediastinal lymph nodes. 5. Genetic testing. Ms Bernstein was young at the time of her first diagnosis at age 43. She also had a paternal aunt who had breast cancer at age 30. We are arranging for her to have genetic testing, hopefully when she comes to see Dr Gonzalez on . 6. We will plan to see the patient back in approximately 2 weeks, but this time will be adjusted based on when she has surgery and the results of her lymph node biopsy. The patient and her family asked appropriate questions. We answered their questions. We appreciate being involved in her care. Augustina Colin MD 02 53 PM - Augustina Colin MD cn Dictation ID: [id number] cc: Yuval Molina MD, [facility] Radiation Oncology [address] [place] [address] Sg Gonzalez MD, [facility] - Pulmonary [address] [place] [address] Linda Blancas MD, [facility] [address] [place] [address] Tylor Boss MD, [facility] - Plastic Surgery [address] [facility], [address], [place] [address] Adolfo Carreno MD, [facility] - Breast Care Program [address] [place] [address] documented in this encounter Plan of Treatment Upcoming Encounters Date Type Department Care Team (Late st Contact Info) Description 04/02/2024 10:30 EDT Appointment [facility] Interventional Radiology Unit [address] [place] [address] 114661 04/02/2024 15:15 EDT Office Visit [facility] Surgical Oncology - [address] 206991 Adolfo Crareno MD [address] [place] [address] 2 [place] [phone] 04/05/2024 9:30 EDT Telemedicine [facility] Palliative Care Services [address] [place] [address] 254251 Chichi Woods MD [address] [place] [address], [address] [phone] 04/11/2024 15:00 EDT Telemedicine [facility] Hematology & Oncology - [address] [phone] Alisson Carreon MD [address] [place] [address] 2 [place] [phone] 04/13/2024 13:30 EDT Appointment [facility]emat[facility] Oncology - [address] [phone] 04/13/2024 14:00 EDT Appointment [facility] Oncology - [address] [address] 04/16/2024 10:00 EST Telemedicine [facility] - [facility] Palliative Care Services [address] [place] [address] [phone] Chichi Woods MD [address] [place] [address], [address] [phone] 04/24/2024 9:00 EST Appointment [facility] Radiology CT Outpatient - [address] [id number] 04/24/2024 11:00 EST Appointment [facility] Breast Imaging - [address] [id number] 04/27/2024 12:00 EST Appointment [facility]ematology [facility] Oncology - [address] [phone] 05/02/2024 15:00 EST Telemedicine [facility] Oncology [address] [phone] Alisson Carreon MD [address] [place] [address], Level [address] [place] [phone] 05/04/2024 10:15 EST Ancillary Procedure [facility] Cardiology - [place] [address] 05/04/2024 11:30 EST Appointment [facility] [address] [address] 05/04/2024 12:00 EST Appointment [facility] Hematology [facility] Oncology - [address] [id number] 06/12/2024 13:00 EST [facility] - [address] [address] Scheduled Referrals Name Type Priority Associated Diagnoses Orde r Schedule AMB CONS/FOLLOW UP FAMILIAL CANCER PROGRAM Outpatient Referral Routine Personal history of malignant neoplasm of breast Ordered: 11/01/2016 documented as of this encounter Visit Diagnoses Diagnosis Personal history of malignant neoplasm of breast- Primary documented in this encounter Care Teams Manager Tax Relationship Specialty Start Date End Date Linda Blancas MD [facility] [address] [place] [address] PCP - General 01/06/11 documented as of this encounter
--- OUTSIDE RECORDS SUMMARY | 2024-03-20 15:10 | XMS_ITS | Encounter Summary ---
Author Organization [facility] Address [address] [place] [address] Care Team Providers Care Telephonic Rn Name Role Phone Linda Blancas MD Primary Care Provider [phone] Encounter Details Date Type Department Care Team (Late st Contact Info) Description 11/21/2015 Results Only Imaging [facility] [phone] Linda Blancas MD [facility] [address] [place] [address] Social History Tobacco Use Types Packs/Day Years [...] [facility] Interventional Radiology Unit [address] [place] [address] 04/02/2024 15:15 EDT Office Visit [facility] Surgical Oncology - [place] [address] [place] [address] [phone] Adolfo Carreno MD [address] [place] [address] 2 [place] [phone] 04/05/2024 9:30 EDT Telemedicine [facility] Palliative Care Services [address] [place] [address] Chichi Woods MD [address] [place] [address] [phone] 04/11/2024 15:00 EDT Telemedicine [facility] Hematology & Oncology - [address] [phone] Alisson Carreon MD [address] [place] [address] 2 [place] [phone] 04/13/2024 13:30 EDT Appointment [facility] Hematology & Oncology - [address] 139411 04/13/2024 14:00 EDT Appointment [facility] Hematology & Oncology - [address] [address] 04/16/2024 10:00 EST Telemedicine [facility] Palliative Care Services [address] [place] [address] [phone] Chichi Woods MD [address] [place] [phone] 04/24/2024 9:00 EST Appointment [facility] Radiology CT Outpatient - [address] [id number] 04/24/2024 11:00 EST Appointment [facility] Breast Imaging - [address] [place] [address] 04/27/2024 12:00 EST Appointment [facility] Hematology & Oncology [address] [address] 05/02/2024 15:00 EST Telemedicine [facility] Hematology & Oncology [address] [phone] Alisson Carreon MD [address] [place] [address], Level [address] [place] [phone] 05/04/2024 10:15 EST Ancillary Procedure [facility] Cardiology - [address] [place] [address] 05/04/2024 11:30 EST Appointment [facility] Hematology & Oncology [address] [phone] 05/04/2024 12:00 EST Appointment [facility] Hematology & Oncology [address] [phone] 06/12/2024 13:00 EST Appointment [facility] Radiology CT - [address] [phone] documented as of this encounter Procedures Procedure Name Priority Date/Time Associated Diagnosis Comments MA 2D/3D UNILATERAL LEFT ONLY ROUTINE ESTEVAN SCREENING MAMMO 11/28/2015 10:59 EDT documented in this encounter Results * MA 2D/3D UNILATERAL LEFT ONLY ROUTINE ESTEVAN SCREENING MAMMO (11/28/2015 10:59 EDT) Anatomical Region Laterality Modality Other 11/28/2015 10:5 9 EDT 11/28/2015 11:58 EDT Narrative 11/28/2015 11:58 EDT Comparison has been made to previous images. Left Breast Findings: (Routine 2D views and 3D tomosynthesis with synthesized 2D implant displaced views with CAD) There are scattered fibroglandular [...] will contact your patient directly. Procedure Note Betzaida Tracy MD - 11/28/2015 Comparison has been made to previous images. Left Breast Findings: (Routine 2D views and 3D tomosynthesis with synthesized 2D implant displaced views with CAD) There are scattered fibroglandular [...] patient directly. Linda Blancas MD IMG MAMMOGRAPHY SEANJacquelyn GAMEZANAHI documented in this encounter Visit Diagnoses Not on filedocumented in this encounter Care Teams Telephonic Rn Relationship Specialty Start Date End Date Linda Blancas MD [address] [place] [address] [address] [place] [address] PCP - General 01/06/11 documented as of this encounter
--- OUTSIDE RECORDS SUMMARY | 2024-03-20 15:11 | XMS_ITS | Encounter Summary ---
Author Organization [facility] Address [address] [place] [address] Care Team Providers Care Core Stripper Name Role Phone Linda Blancas MD Primary Care Provider [phone] Reason for Visit * Reason Comments Back Pain Encounter Details Date Type Department Care Team (Late st Contact Info) Description 03/07/2012 12:30 EDT Office Visit [facility] Spine Program - [address] [place] [address] Felipe Ny MD [address] [place] [address] [place] [address] Spondylolisthesis (Primary Dx) Social History Tobacco Use Types Packs/Day Years Used Date Smoking Tobacco: Never Alcohol Use Standard Drinks/Week Comments Yes 2.5 (1 standard drink = 0.6 oz p ure alcohol) Sex and Gender Information Value Date [...] of this encounter Progress Notes * Felipe Ny MD - 03/08/2012 4320 EDT [facility] [place] [facility] (SpINE) Orthopa[facility]ics and Rehabilitation [address] [place] [address] PROGRESS/FOLLOWUP NOTE - 03/07/2012 PROBLEM:. 1. Low back 50%, right leg pain 50% pain. a. L3, L4, L5 isthmic spondylolisthesis. b. Foraminal stenosis. c. ASF PSF L3-S1 12/13/11. 2. Breast cancer November of 2003. a. Status post mastectomy and reconstruction. 3. Status post bilateral carpal tunnel release. SUBJECTIVE: Patient returns for routine followup, overall doing extremely well. She had complete relief of her preoperative leg pain, gets achy stiffness in the low back in the morning, loosens up over a short period of time. She is taking no medications. OBJECTIVE: Incisions well healed, 5/5 all muscle groups. DIAGNOSTIC DATA: X-rays, AP and lateral, show her hardware in good position, fusion consolidating appropriately. ASSESSMENT: Patient making good progress. PLAN: 1. Continue with PT. 2. Follow up in 3 months. AP and lateral lumbar film to be obtained prior to being seen. Electronically Signed by Felipe Ny MD 03/09/2012 15:56 Felipe Ny MD - Felipe Ny MD - [facility] Job ID: SM Doc ID: [id number] Ext Doc ID: [id number] cc: * Felipe Ny MD - 03/07/2012 1314 EDT This office note has been dictated. FELIPE NY MD documented in this encounter Plan of Treatment Upcoming Encounters Date Type Department Care Team (Late st Contact Info) Description 04/02/2024 10:30 EDT Appointment [facility] Interventional Radiology Unit [address] [place] [address] 04/02/2024 15:15 EDT Office Visit [facility] Surgical Oncology - Main [address] [phone] Adolfo Carreno MD [address] [place] [address] 2 [place] [phone] 04/05/2024 9:30 EDT Telemedicine [facility] Palliative Care Services [address] [place] [address] Chichi Woods MD [address] [place] [address] [phone] 04/11/2024 15:00 EDT Telemedicine [facility] Hematology & Oncology - [address] [phone] Alisson Carreon MD [address] [place] [address] 2 [place] [phone] 04/13/2024 13:30 EDT Appointment [facility] Hematology & Oncology - [address] [phone] 04/13/2024 14:00 EDT Appointment [facility] Hematology & Oncology - [address] [phone] 04/16/2024 10:00 EST Telemedicine [facility] Palliative Care Services [address] [place] [address] [phone] Chichi Woods MD [address] [place] [address] [phone] 04/24/2024 9:00 EST Appointment [facility] Radiology CT Outpatient - [address] 595441 04/24/2024 11:00 EST Appointment [facility] Breast Imaging - [facility] [address] [place] [address] 04/27/2024 12:00 EST Appointment [facility] Hematology & Oncology - [address] [address] 05/02/2024 15:00 EST Telemedicine [facility] Hematology & Oncology [address] [phone] Alisson Carreon MD [address] [place] [address], Level [address] [place] [phone] 05/04/2024 10:15 EST Ancillary Procedure [facility] Cardiology - [place] [address] 05/04/2024 11:30 EST Appointment [facility] Hematology & Oncology [address] [address] 05/04/2024 12:00 EST Appointment [facility] Hematology & Oncology [address] 808361 06/12/2024 13:00 EST Appointment [facility] Radiology CT - [address] [phone] documented as of this encounter Visit Diagnoses Diagnosis Spondylolisthesis- Primary Congenital spondylolisthesis documented in this encounter Discontinued Medications Medication Sig Discontinue Reason Start Date End Da te oxycodone (ROXICODONE) 5 mg immediate release tablet 1-2 tablets every 6 hours as needed for pain. 01/07/2012 03/07/2012 documented as of this encounter Care Teams Core Stripper Relationship Specialty Start Date End Date Linda Blancas MD [facility] [address] [place] [address] PCP - General 01/06/11 documented as of this encounter
--- OUTSIDE RECORDS SUMMARY | 2024-03-20 15:11 | XMS_ITS | Encounter Summary ---
Author Organization [facility] Address [address] [place] [address] Care Team Providers Care Cut Tobacco Bulker Name Role Phone Linda Blancas MD Primary Care Provider [phone] Reason for Visit * Reason Onset Date Comments Medications Refill 08/16/2012 Encounter Details Date Type Department Care Team (Late st Contact Info) Description 08/16/2012 Refill [facility] OBGYN Services - [facility] [address] [place] [address] Carmel Decker, SHEL[place] Medications Refill Social History Tobacco Use [...] No 12/13/2011 documented as of this encounter Ordered Prescriptions Prescription Sig Dispensed Refills Start Date End Da te valACYclovir (VALTREX) 500 mg tablet Take 1 Tab by mouth daily. 90 Tab 3 08/16/2012 gabapentin (NEURONTIN) 100 mg capsule Take 2 Caps by mouth 2 times daily. 360 Cap 3 08/16/2012 12/14/2023 gabapentin (NEURONTIN) 300 mg capsule Take 2 Caps by mouth at bedtime. 180 Cap 3 08/16/2012 06/16/2017 venlafaxine (EFFEXOR-XR) 150 mg XR capsule Take 1 Cap by mouth daily. 90 Cap 3 08/16/2012 12/14/2023 documented in this encounter Miscellaneous Notes * Telephone Encounter - Carmel Decker RN - 08/16/2012 1511 EST Medication Refill Request Patient Request per email Medication/Dose/Route/Frequency: Venlafaxine HCL ER Capsules (Effexor XR generic) 150mg Valacyclovir HCL Tablets (Valtrex generic) 500mg Gabapentin Capsules (Neurontin generic) 100 mg (two pills taken in AM and PM) Gabapentin Capsules (Neurontin generic) 300 mg (two pills taken at bedtime) Pt completely out: no Last office visit: YRL 12/08/11 Pending visit: none If appointment needed-appointment made: Pt requesting 1 year renewal but had no pending appt YRL made for 12/08/11. Pharmacy confirmed: yes Amount filled/# of refills: Pt offered 3 month supply to get to YRL appt but states she always getsa 1 year supply. I tried to explain rationale but she prefers to receive year's supply. documented in this encounter Plan of Treatment Upcoming Encounters Date Type Department Care Team (Late st Contact Info) Description 04/02/2024 10:30 EDT Appointment [facility] Interventional Radiology Unit [address] [place] [address] 04/02/2024 15:15 EDT Office Visit [facility] Surgical Oncology - [facility] [address], [place] [address] Adolfo Carreno MD 111 [facility], [facility], Level 2 [place] [phone] 04/05/2024 9:30 EDT Telemedicine [facility] - [facility] Palliative Care Services [address], [place] [phone] Chichi Woods MD [address] [place] [address] [address] [place] [phone] 04/11/2024 15:00 EDT Telemedicine [facility] Hematology & Oncology - [address] [phone] Alisson Carreon MD [address] [place] [address], Level [address] [place] [phone] 04/13/2024 13:30 EDT Appointment [facility] Hematology & Oncology [address] [phone] 04/13/2024 14:00 EDT Appointment [facility] Hematology & Oncology [address] [phone] 04/16/2024 10:00 EST Telemedicine [facility] - [facility] Services [address] [place] [address] [phone] Chichi Woods MD [address] [place] [phone] 04/24/2024 9:00 EST Appointment [facility] Radiology CT Outpatient - [address] [id number] 04/24/2024 11:00 EST Appointment [facility] Breast Imaging - [address] [phone] 04/27/2024 12:00 EST Appointment [facility] Hematology & Oncology - [address] [phone] 05/02/2024 15:00 EST Telemedicine [facility] Hematology & Oncology - [address] [phone] Alisson Carreon MD [address] [place], [place] [address], Level 2 [place] [phone] 05/04/2024 10:15 EST Ancillary Procedure [facility] Cardiology - [address] [place] [address] 05/04/2024 11:30 EST Appointment [facility] Hematology & Oncology [address] [id number] 05/04/2024 12:00 EST Appointment [facility] Hematology & Oncology [address] [phone] 06/12/2024 13:00 EST Appointment [facility] Radiology CT - [address] [address] documented as of this encounter Visit Diagnoses Not on filedocumented in this encounter Discontinued Medications Medication Sig Discontinue Reason Start Date End Da te venlafaxine (EFFEXOR-XR) 150 mg XR capsule TAKE 1 CAPSULE DAILY 07/19/2012 08/16/2012 valACYclovir (VALTREX) 500 mg tablet TAKE 1 TABLET DAILY 05/29/2012 08/16/2012 gabapentin (NEURONTIN) 100 mg capsule Take 2 Caps by mouth 2 times daily before breakfast and lunch. 12/08/2011 08/16/2012 gabapentin (NEURONTIN) 300 mg capsule Take 2 Caps by mouth at bedtime. 12/08/2011 08/16/2012 documented as of this encounter Care Teams Cut Tobacco Bulker Relationship Specialty Start Date End Date Linda Blancas MD [facility] [address] [place] [address] PCP - General 01/06/11 documented as of this encounter
--- OUTSIDE RECORDS SUMMARY | 2024-03-20 15:11 | XMS_ITS | Encounter Summary ---
Author Organization [facility] Address [address] [place] [address] Care Team Providers Care Junior Web Developer Name Role Phone Linda Blancas MD Primary Care Provider [phone] Encounter Details Date Type Department Care Team (Late st Contact Info) Description 11/24/2012 14:20 EDT - 11/24/2012 23:59 EDT Hospital Encounter [address] [place] [address] Tylor Hanley MD [address] [place] [phone] Discharge Disposition: Auto Discharge Social History Tobacco [...] No 12/13/2011 documented as of this encounter Medications at [...] daily. 90 Tab 3 08/16/2012 acetaminophen (TYLENOL) 500 mg tablet Take 1,000 mg by mouth every 6 hours as needed. 12/08/2012 DOXYLAMINE SUCCINATE (UNISOM ORAL) Take by mouth as needed. Takes half a tablet 02/02/2011 01/13/2022 gabapentin (NEURONTIN) 100 mg capsule Take 2 Caps by mouth 2 times daily. 360 Cap 3 08/16/2012 12/14/2023 gabapentin (NEURONTIN) 300 mg capsule Take 2 Caps by mouth at bedtime. 180 Cap 3 08/16/2012 06/16/2017 ibuprofen (MOTRIN) 200 mg tablet Take 200-400 mg by mouth as needed. 08/30/2018 venlafaxine (EFFEXOR-XR) 150 mg XR capsule Take 1 Cap by mouth daily. 90 Cap 3 08/16/2012 12/14/2023 documented as of this encounter Discharge Disposition Disposition Code Departure Means Destination Auto Discharge Home documented in this encounter Plan of Treatment Upcoming Encounters Date Type Department Care Team (Late st Contact Info) Description 04/02/2024 10:30 EDT Appointment [facility] Interventional Radiology Unit [address] [place] [phone] 04/02/2024 15:15 EDT Office Visit [facility] Surgical Oncology - [facility] [address] [place], [place] [phone] Adolfo Carreno MD 111 [facility], Level [address] [place] [phone] 04/05/2024 9:30 EDT Telemedicine [facility] - [facility] Palliative Care Services [address], [place] [phone] Chichi Woods MD 111 [facility], [address] [phone] 04/11/2024 15:00 EDT Telemedicine [facility] Hematology & Oncology - [address] [phone] Alisson Carreon MD [address] [place] [address], [facility] [address] [place] [phone] 04/13/2024 13:30 EDT Appointment [facility] Hematology & Oncology - [address] [phone] 04/13/2024 14:00 EDT Appointment [facility] Hematology & Oncology [address] [phone] 04/16/2024 10:00 EST Telemedicine [facility] - [facility] Palliative Care Services [address] [place] [address] Chichi Woods MD [address] [place] [phone] 04/24/2024 9:[address] [facility] Radiology CT Outpatient - [address] [id number] 04/24/2024 11:00 EST Appointment [facility] Breast Imaging - [facility] [address] [phone] 04/27/2024 12:00 EST Appointment [facility] Hematology & Oncology - [address] 100[address] 05/02/2024 15:00 EST Telemedicine [facility] Hematology & Oncology - [address] [phone] Alisson Carreon MD [address] [place] [address], [facility] [address] [place] [phone] 05/04/2024 10:15 EST Ancillary Procedure [facility] Cardiology - [place] [place] [address] 05/04/2024 11:30 EST Appointment [facility] Hematology & Oncology [address] [address] 05/04/2024 12:00 EST Appointment [facility] Hematology & Oncology [address] [phone] 06/12/2024 13:[address] [facility] Radiology CT - [address] [phone] documented as of this encounter Visit Diagnoses Not on filedocumented in this encounter Care Teams Junior Web Developer Relationship Specialty Start Date End Date Linda Blancas MD [facility] [address] [place] [address] PCP - General 01/06/11 documented as of this encounter
--- OUTSIDE RECORDS SUMMARY | 2024-03-20 15:11 | XMS_ITS | Encounter Summary ---
Author Organization [facility] Address [address] [place] [address] Care Team Providers Care Customer Assistance Associate Name Role Phone Linda Blancas MD Primary Care Provider Reason for Visit * Reason Comments Foot Problem plantar fasciitis of left foot Encounter Details Date Type Department Care Team (Late st Contact Info) Description 08/06/2013 12:45 EST Office Visit [facility] - [address] [address] Alex Peñaloza MD [address] [place] [phone] Plantar fasciitis of left foot (Primary [...] - Inhaled Oxygen Concentration - - Weight 73.5 kg (162 lb) 08/06/2013 1302 EST Height 157.5 cm (5' 2) 08/06/2013 1302 EST Body Mass Index 29.63 08/06/2013 1302 EST documented in this encounter Functional Status Cognitive Status Response Date of Assessm ent Because of a physical, menta l, or emotional condition, do you have serious difficulty concentrating, remembering, or making decisions? (5 years old or older) No 12/13/2011 documented as of this encounter Progress Notes * Yunior Darling MD - 08/06/2013 7121 EST Diagnosis: 1. Plantar fasciitis of left foot (728.71) Sunshine Pleitez is being seen today for Foot Problem We have been asked to see her in consultation by Dr. Blancas. HPI: Sunshine Bernstein is a 52-year-old female referred to our clinic due to persistent left heel pain. She states that this pain has been going on for approximately 2 years and is insidious in nature. She states that she had an L3 to S1 decompression fusion due to significant pain and is now readyto deal with her left foot pain. She states it is worse in the morning, improves throughout the dayand is worse after resting it. She denies any other numbness or tingling of the foot. She tried physical therapy, a walking boot, orthotics. She had an EMG done, which was essentially normal. Aside from the above, she has no other concerns or complaints today. Patient Active Problem List Diagnosis Code ??? 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 Premature ovarian failure 256.8 ??? Herpes simplex type 2 infection 054.9 ??? Unspecified menopausal and postmenopausal disorder 627.9 ??? Routine gynecological examination V72.31 ??? Lumbar radicular syndrome 724.4 ??? Acquired spondylolisthesis 738.4 ??? Lumbosacral spondylosis without myelopathy 721.3 ??? Acquired absence of breast and nipple V45.71 ??? Personal history of malignant neoplasm of breast V10.3 ??? Plantar fasciitis of left foot 728.71 ??? Unstable right ankle 718.87 ??? Hallux rigidus of right foot 735.2 ??? Trigger thumb of left hand 727.03 Past Medical History Diagnosis Date ??? Breast [...] L3 - S1 spinal decompression and fusion History Substance Use Topics ??? Smoking status: Never Smoker ??? Smokeless tobacco: Never Used ??? Alcohol Use: 0.0 oz/week 1-3 Glasses of wine per week Family History Problem Relation Age of Onset ??? Cancer Father bladder ??? Cancer Maternal Uncle bladder ??? Breast Cancer Paternal Aunt 35 ??? Cancer Brother 59 esophageal Current Outpatient Prescriptions Medication Sig Dispense Refill [...] 90 Cap 3 No current facility-administered medications for this visit. Allergies Allergen Reactions ??? Sulfa (Sulfonamide Antibiotics) Hives Light lavender rash Review of Systems A ten point review of systems was performed. Pertinent positives are listed below, all others are negative: Musculoskeletal: positive for as per HPI height is 157.5 cm (62) and weight is 73.483 kg (162 lb). Pain Vitals: Pain Location: Foot Wesley-Barrios Pain Rating (Scale 0-10): Hurts whole lot Numeric Pain Level (Scale 1-10): 8 Pain in another site? : No Pain Quality: Shooting;Sharp Pain Duration: Intermittent (with walking) General appearance: alert, no distress Physical examination today shows that her hand exam is completely within normal limits. DTR's are 2+ at both knees and ankles with intact pulses throughout. Sensation to light touch is intact. Skin is intact with no fat pad atrophy noted. Passive range of motion of the ankle, subtalar and midfoot joints are within normal limits bilaterally. Motor function about the ankle bilaterally is within normal limits. She has normal arches bilaterally. She has a nonantalgic gait. Overall alignment of the ankle, midfoot, and hindfoot bilaterally is within normal limits. She has no plantar calluses underneath the metatarsal heads. Alignment of her great toe bilaterally is within normal limits. She has normal motion on dorsiflexion, plantarflexion of first metatarsophalangeal joint bilaterally. There is normal flexibility and negative grind test of the first MTP joint bilaterally. She has no hammertoes that are flexible or fixed and her toenails are normal in appearance. Anxiety index is 5/10. Pertinent positive findings: Tenderness to palpation over insertion of plantar fascia (more medial than lateral) Plan: Sunshine Bernstein is a 52-year-old female with chronic left heel pain that is consistent with plantar fasciitis. At this point in time, we discussed further treatment options. We discussed continued conservative management of doing nothing versus placing the patient in a short-leg walking cast. We also discussed the use of night splints. In addition to this, we discussed surgical options as well as an injection into the plantar fascia. After the risks, benefits and alternatives all of these options were discussed with the patient, it was elected to place her in a short-leg walking cast. We will trial this for 6 weeks' time after which time she can wean out. We will remove this and place her in a boot and begin using night splints and stretching exercises. If this does not seem to control her symptoms, we can then discuss the potential for an injection. The patient understood and agreed with this plan. All of her questions were answered at today's encounter. The patient was seen and examined with Dr Peñaloza. 1. Plantar fasciitis of left foot (729.89) No orders of the defined types were placed in this encounter. Imaging for next visit:none Follow up: Return in about 6 weeks (around 09/17/2013). Cc: Referring Provider - Dr. Blancas PCP - Linda Blancas MD Attestation statement: I examined and discussed the patient with the resident at the time of the visit. I agree with the findings and the plan of care documented in the resident's note. Alex Peñaloza MD documented in this encounter Plan of Treatment Upcoming Encounters Date Type Department Care Team (Late st Contact Info) Description 04/02/2024 10:30 EDT Appointment [facility] Interventional Radiology Unit [address] [place] [phone] 04/02/2024 15:15 EDT Office Visit [facility] Surgical Oncology - [address] [phone] Adolfo Carreno MD [address] [place] [address] [address] [place] [phone] 04/05/2024 9:30 EDT Telemedicine [facility] - [facility] [address] [place] [address] [phone] Chichi Woods MD [address] [place] [phone] 04/11/2024 15:00 EDT Telemedicine [facility] Hematology & Oncology [address] [phone] Alisson Carreon MD [address] [place] [address] 2 [place] [phone] 04/13/2024 13:30 EDT Appointment [facility] Hematology & Oncology [address] [phone] 04/13/2024 14:00 EDT Appointment [facility] Hematology & Oncology - [address] [address] 04/16/2024 10:00 EST Telemedicine [facility] - [facility] Pall[facility] Care Services [address], [place] [address] Chichi Woods MD 111 [facility], [address] [phone] 04/24/2024 9:00 EST Appointment [facility] Radiology CT Outpatient - [address] [address] 04/24/2024 11:00 EST Appointment [facility] Breast Imaging - [address] [phone] 04/27/2024 12:00 EST Appointment [facility] Hematology & Oncology - [address] [phone] 05/02/2024 15:00 EST Telemedicine [facility] Hematology & Oncology - [address] [phone] Alisson Carreon MD [address] [place] [address], [address] [place] [phone] 05/04/2024 10:15 EST Ancillary Procedure [facility] Cardiology [place] [address] [place] [address] 05/04/2024 11:30 EST Appointment [facility] Hematology & Oncology - [address] [address] 05/04/2024 12:00 EST Appointment [facility] Hematology & Oncology - [address] [address] 06/12/2024 13:00 EST Appointment [facility] Radiology CT - Main [address] [address] documented as of this encounter Visit Diagnoses Diagnosis Plantar fasciitis of left foot- Primary Plantar fascial fibromatosis documented in this encounter Care Teams Customer Assistance Associate Relationship Specialty Start Date End Date Linda Blancas MD [address] [place] [address] 30 [place] [address] PCP - General 01/06/11 documented as of this encounter
--- OUTSIDE RECORDS SUMMARY | 2024-03-20 15:11 | XMS_ITS | Encounter Summary ---
Author Organization [facility] Address [address] [place] [address] Care Team Providers Care Social And Political Studies Professor Name Role Phone Linda Blancas MD Primary Care Provider [phone] Reason for Referral * Radiology Services (Routine/Next Available) - Closed Specialty Diagnoses / Procedures Referred By Contac t Referred To Contact Diagnoses Lumbago Procedures L SPINE 2-3 VIEWS Tylor Hanley MD [address] [place] [phone] Referral ID Status Reason Start Date Expiration Date Visits Re quested Visits Authorized [id number] Closed 11/24/2012 1 1 Reason for Visit * Reason Onset Date Comments Back Pain 11/24/2012 Encounter Details Date Type Department Care Team (Late st Contact Info) Description 11/24/2012 Orders Only [facility] Spine Program - [facility] [place] [address] Tylor Hanley MD [address] [place] [phone] Lumbago (Primary Dx) Social History Tobacco Use Types [...] Appointment [facility] Interventional Radiology Unit [address] [place] [address] [phone] 04/02/2024 15:15 EDT Office Visit [facility] Surgical Oncology - [address] [phone] Adolfo Carreno MD [address] [place] [address] 2 [place] [phone] 04/05/2024 9:30 EDT Telemedicine [facility] - [facility] Palliative Care Services [address] [place] [address] [phone] Chichi Woods MD [address] [place] [address] [phone] 04/11/2024 15:00 EDT Telemedicine [facility] Hematology & Oncology [address] [phone] Alisson Carreon MD [address] [place] [address] [phone] 04/13/2024 13:30 EDT Appointment [facility] Hematology & Oncology [address] [phone] 04/13/2024 14:00 EDT Appointment [facility] Hematology & Oncology - [address] 048461 04/16/2024 10:00 EST Telemedicine [facility] - [facility] Palliative Care Services [address] [place] [address] [phone] Chichi Woods MD [address] [place] [address], [address] [phone] 04/24/2024 9:00 EST Appointment [facility] Radiology CT Outpatient - [address] [id number] 04/24/2024 11:00 EST Appointment [facility] Breast Imaging - [address] [phone] 04/27/2024 12:00 EST Appointment [facility] Hematology & Oncology - [address] [phone] 05/02/2024 15:00 EST Telemedicine [facility] Hematology & Oncology - [address] [phone] Alisson Carreon MD [address] [place] [address], Level 2 [place] [phone] 05/04/2024 10:15 EST Ancillary Procedure [facility] Cardiology - [place] [address] 05/04/2024 11:30 EST Appointment [facility] Hematology & Oncology - [address] [id number] 05/04/2024 12:00 EST Appointment [facility] Hematology & Oncology [address] [phone] 06/12/2024 13:00 EST Appointment [facility] Radiology CT - [address] [phone] documented as of this encounter Procedures Procedure Name Priority Date/Time Associated Diagnosis Comments L SPINE 2-3 VIEWS Routine 11/24/2012 14: 26 EDT Lumbago documented in this encounter Results * L SPINE 2-3 VIEWS (11/24/2012 14:26 EDT) Anatomical Region Laterality Modality Other 11/24/2012 14:2 6 EDT 11/24/2012 15:01 EDT Narrative 11/24/2012 15:01 EDT LUMBAR SPINE 2 VIEWS November 24, 2012 INDICATION: Low back pain. Anterior and posterior spinal fusion. COMPARISON: May 30, 2012 TECHNIQUE: AP and lateral views of the lumbar spine were obtained. FINDINGS: There has been prior posterior decompression with hardware fusion from L3-S1. Metallic rods and transpedicular screws appear intact. No gross periprosthetic lucency is identified. There is incompletely incorporated interbody bone graft at L3-L4, L4-L5 and L5-S1. Surgical clips are present in the prevertebral soft tissues. Posterolateral bone graft material is present bilaterally without definitive solid bony bridging appreciated. Significant scoliotic curvature is not appreciated. Anterolisthesis of L3 on L4 and L4 on L5 is unchanged. Vertebral body heights are preserved. Disc space heights above the level of fusion appear well-maintained. There is a calcified uterine fibroid demonstrated in the pelvis on the right. Procedure Note 11/24/2012 LUMBAR SPINE 2 VIEWS November 24, 2012 INDICATION: Low back pain. Anterior and posterior spinal fusion. COMPARISON: May 30, 2012 TECHNIQUE: AP and lateral views of the lumbar spine were obtained. FINDINGS: There has been prior posterior decompression with hardware fusion from L3-S1. Metallic rods and transpedicular screws appear intact. No gross periprosthetic lucency is identified. There is incompletely incorporated interbody bone graft at L3-L4, L4-L5 and L5-S1. Surgical clips are present in the prevertebral soft tissues. Posterolateral bone graft material is present bilaterally without definitive solid bony bridging appreciated. Significant scoliotic curvature is not appreciated. Anterolisthesis of L3 on L4 and L4 on L5 is unchanged. Vertebral body heights are preserved. Disc space heights above the level of fusion appear well-maintained. There is a calcified uterine fibroid demonstrated in the pelvis on the right. Tylor Hanley MD IMG DIAGNOSTIC I MAGING ORDERABLES documented in this encounter Visit Diagnoses Diagnosis Lumbago- Primary documented in this encounter Care Teams Social And Political Studies Professor Relationship Specialty Start Date End Date Linda Blancas MD [address] [place] [address] PCP - General 01/06/11 documented as of this encounter
--- OUTSIDE RECORDS SUMMARY | 2024-03-20 15:11 | XMS_ITS | Encounter Summary ---
Author Organization [facility] Address [address] [place] [address] Care Team Providers Care Water Team Leader Name Role Phone Linda Blancas MD Primary Care Provider [phone] Reason for Visit * Reason Onset Date Comments Appointment Related 05/14/2013 Encounter Details Date Type Department Care Team (Late st Contact Info) Description 05/14/2013 Telephone [facility] Foot & Ankle Program - [address] [address] Kristin Barber NP [address] [place] [phone] Appointment Related Social History Tobacco Use Types [...] encounter Miscellaneous Notes * Telephone Encounter - Litzy Hou - 05/14/2013 1608 EST Left a message giving the time for the EMG as well as the follow up appointment with Annalisa Barber. EMG on @ 8.00 AM and follow up with Annalisa Florence @ 9.00 AM. documented in this encounter Plan of Treatment Upcoming Encounters Date Type Department Care Team (Late st Contact Info) Description 04/02/2024 10:30 EDT Appointment [facility] Interventional Radiology Unit [address] [place] [address] [phone] 04/02/2024 15:15 EDT Office Visit [facility] Surgical Oncology - [address] [phone] Adolfo Carreno MD [address] [place] [address] [phone] 04/05/2024 9:30 EDT Telemedicine [facility] Palliative Care Services [address] [place] [address] [phone] Chichi Woods MD [address] [place] [address] [phone] 04/11/2024 15:00 EDT Telemedicine [facility] Hematology & Oncology [address] [phone] Alisson Carreon MD [address] [place] [address] [phone] 04/13/2024 13:30 EDT Appointment [facility] Hematology & Oncology [address] [phone] 04/13/2024 14:00 EDT Appointment [facility] Hematology & Oncology [address] [phone] 04/16/2024 10:00 EST Telemedicine [facility] - [facility] Palliative Care Services [address] [place] [address] [phone] Chichi Woods MD [address] [place] [address], [address] [place] [phone] 04/24/2024 9:00 EST Appointment [facility] Radiology CT Outpatient - [address] [id number] 04/24/2024 11:00 EST Appointment [facility] Breast Imaging - [facility] [address] [place], [place] [phone] 04/27/2024 12:00 EST Appointment [facility] Hematology & Oncology - [address] [phone] 05/02/2024 15:00 EST Telemedicine [facility] Hematology & Oncology - [address] 037391 Alisson Carreon MD [address] [place] [address], Level 2 [place] [phone] 05/04/2024 10:15 EST Ancillary Procedure [facility] Cardiology - [address] [place], [place] [phone] 05/04/2024 11:30 EST Appointment [facility] Hematology & Oncology - [address] [phone] 05/04/2024 12:00 EST Appointment [facility] Hematology & Oncology [address] [phone] 06/12/2024 13:00 EST Appointment [facility] Radiology CT - [address] [phone] documented as of this encounter Visit Diagnoses Not on filedocumented in this encounter Care Teams Water Team Leader Relationship Specialty Start Date End Date Linda Blancas MD [address] [place] [address] PCP - General 01/06/11 documented as of this encounter
--- OUTSIDE RECORDS SUMMARY | 2024-03-20 15:11 | XMS_ITS | Encounter Summary ---
Author Organization [facility] Address [address] [place] [address] Care Team Providers Care Assembler Metal Furniture Name Role Phone Linda Blancas MD Primary Care Provider Reason for Referral * Radiology Services (Routine/Next Available) - Closed Specialty Diagnoses / Procedures Referred By Contac t Referred To Contact Diagnoses Acquired spondylolisthesis Procedures L SPINE 2-3 VIEWS Tylor Hanley MD [address] [place] [phone] Referral ID Status Reason Start Date Expiration Date Visits Re quested Visits Authorized [id number] Closed 03/02/2012 1 1 Reason for Visit * Reason Onset Date Comments Back Pain 03/02/2012 Encounter Details Date Type Department Care Team (Late st Contact Info) Description 03/02/2012 Orders Only [facility] Spine Program - [facility] [place] [address] Tylor Hanley MD [address] [place] [phone] Acquired spondylolisthesis (Primary Dx) Social History Tobacco Use Types [...] Appointment [facility] Interventional Radiology Unit [address] [place] [address] [phone] 04/02/2024 15:15 EDT Office Visit [facility] Surgical Oncology [address] [phone] Adolfo Carreno MD [address] [place] [address] 2 [place] [phone] 04/05/2024 9:30 EDT Telemedicine [facility] - [facility] Palliative Care Services [address] [place] [address] [phone] Chichi Woods MD [address] [place] [address] [phone] 04/11/2024 15:00 EDT Telemedicine [facility] Hematology & Oncology [address] 196241 Alisson Carreon MD [address] [place] [address] [phone] 04/13/2024 13:30 EDT Appointment [facility] Hematology & Oncology [address] [phone] 04/13/2024 14:00 EDT Appointment [facility] Hematology & Oncology - [address] [phone] 04/16/2024 10:00 EST Telemedicine [facility] - [facility] Palliative Care Services [address] [place] [address] [phone] Chichi Woods MD [address] [facility], [address] [phone] 04/24/2024 9:00 EST Appointment [facility] Radiology CT Outpatient - [address] [id number] 04/24/2024 11:00 EST Appointment [facility] Breast Imaging - [facility] 1 [place], [place] 580641 04/27/2024 12:00 EST Appointment [facility] Hematology & Oncology - [address] [phone] 05/02/2024 15:00 EST Telemedicine [facility] Hematology & Oncology - [address] 644341 Alisson Carreon MD [address] [place] [address], Level 2 [place] [phone] 05/04/2024 10:15 EST Ancillary Procedure [facility] Cardiology [place] [address] 05/04/2024 11:30 EST Appointment [facility] Hematology & Oncology - [address] [phone] 05/04/2024 12:00 EST Appointment [facility] Hematology & Oncology [address] 518771 06/12/2024 13:00 EST Appointment [facility] Radiology CT - [address] [phone] documented as of this encounter Procedures Procedure Name Priority Date/Time Associated Diagnosis Comments L SPINE 2-3 VIEWS Routine 03/07/2012 12: 51 EDT Acquired spondylolisthesis documented in this encounter Results * L SPINE 2-3 VIEWS (03/07/2012 12:51 EDT) Anatomical Region Laterality Modality Other 03/07/2012 12:5 1 EDT 03/07/2012 14:42 EDT Narrative 03/07/2012 14:42 EDT L SPINE 2-3 VIEWS ??Mar 07, 2012 12:51:00 PM Signs and Symptoms/Comments: ??738.4-ACQUIRED [id number]; Low back pain, s/p L3-S1 fusion Findings 2 views of the lumbosacral spine. Status post L3-S1 fusion. No evidence of hardware failure. Bone grafts intact. Impression: No interval change. Procedure Note 03/07/2012 L SPINE 2-3 VIEWS Mar 07, 2012 12:51:00 PM Signs and Symptoms/Comments: 738.4-ACQUIRED [id number]-1-CM; Low back pain, s/p L3-S1 fusion Findings 2 views of the lumbosacral spine. Status post L3-S1 fusion. No evidence of hardware failure. Bone grafts intact. Impression: No interval change. Tylor Hanley MD IMG DIAGNOSTIC I MAGING ORDERABLES documented in this encounter Visit Diagnoses Diagnosis Acquired spondylolisthesis- Primary documented in this encounter Care Teams Assembler Metal Furniture Relationship Specialty Start Date End Date Linda Blancas MD [facility] [address] [place] [address] PCP - General 01/06/11 documented as of this encounter
--- OUTSIDE RECORDS SUMMARY | 2024-03-20 15:11 | XMS_ITS | Encounter Summary ---
Author Organization [facility] Address [address] [place] [address] Care Team Providers Care Program Aide Name Role Phone Linda Blancas MD Primary Care Provider [phone] Reason for Visit * Reason Comments Cast Problem Patient here for dianna t placement as she could not have it applied at the time of her visit with Dr. Peñaloza Encounter Details Date Type Department Care Team (Late st Contact Info) Description 08/09/2013 14:45 EST Office Visit [facility] Foot & Ankle Program - [address] [address] Alena Hamlin NP [address] [place] [phone] Plantar fasciitis (Primary Dx) Discharge Disposition: Auto Discharge Social [...] as of this encounter Discharge Diagnoses Diagnosis 728.71 PLANTAR FIBROMATOSIS[ICD-9-CM] documented in this encounter Discharge Disposition Disposition Code Departure Means Destination Auto Discharge documented in this encounter Progress Notes * Anusha Matos - 08/09/2013 1606 EST As instructed, I applied a short leg weight bearing fiberglass cast with webril padding to the leftlower extremity. Alena Hamlin NP was immediately available during the entire time the service was being provided. Materials used: 4 rolls of 3 inch fiberglass Patient Eduction Topic: Cast care and application Method: Handout and Verbal Taught to: Patient Barriers: none Outcomes: independent and verbalized understanding Anusha Matos documented in this encounter Plan of Treatment Upcoming Encounters Date Type Department Care Team (Late st Contact Info) Description 04/02/2024 10:30 EDT Appointment [facility] Interventional Radiology Unit [address] [place] [address] [phone] 04/02/2024 15:15 EDT Office Visit [facility] Surgical Oncology - [address] [phone] Adolfo Carreno MD [address] [place] [address] [phone] 04/05/2024 9:30 EDT Telemedicine [facility] - [facility] Palliative Care Services [address] [place] [address] [phone] Chichi Woods MD [address] [place] [address] [phone] 04/11/2024 15:00 EDT Telemedicine [facility] Hematology & Oncology [address] 588321 Alisson Carreon MD [address] [place] [address] 2 [place] [phone] 04/13/2024 13:30 EDT Appointment [facility] Hematology & Oncology - [address] 994381 04/13/2024 14:00 EDT Appointment [facility] Hematology & Oncology - [address] [address] 04/16/2024 10:00 EST Telemedicine [facility] - [facility] Palliative Care Services [address] [place] [address] [phone] Chichi Woods MD [address] [place] [address] [phone] 04/24/2024 9:00 EST Appointment [facility] Radiology CT Outpatient - [address] [address] 04/24/2024 11:00 EST Appointment [facility] Breast Imaging - [facility] S [address] 337131 04/27/2024 12:00 EST Appointment [facility] Hematology & Oncology - [address] 901181 05/02/2024 15:00 EST Telemedicine [facility] Hematology & Oncology - [address] [address] Alisson aCrreon MD [address] [place] [address], Level 2 [place] [phone] 05/04/2024 10:15 EST Ancillary Procedure [facility] Cardiology - [place] [address] 05/04/2024 11:30 EST Appointment [facility] Hematology & Oncology - [address] 264651 05/04/2024 12:00 EST Appointment [facility] Hematology & Oncology - [address] [phone] 06/12/2024 13:00 EST Appointment [facility] Radiology CT - [address] [address] documented as of this encounter Visit Diagnoses Diagnosis Plantar fasciitis- Primary Plantar fascial fibromatosis documented in this encounter Care Teams Program Aide Relationship Specialty Start Date End Date Linda Blancas MD [facility] [address] [place] [address] PCP - General 01/06/11 documented as of this encounter
--- OUTSIDE RECORDS SUMMARY | 2024-03-20 15:11 | XMS_ITS | Encounter Summary ---
Author Organization [facility] Address [address] [place] [address] Care Team Providers Care Journalism Internship Name Role Phone Linda Blancas MD Primary Care Provider [phone] Encounter Details Date Type Department Care Team (Late st Contact Info) Description 06/19/2013 Abstract [facility] Hand & Upper Extremity Program - [address] [address] Jj Valenzuela MD [address] [place] [phone] Social History Tobacco Use Types Packs/Day [...] EDT Appointment [facility] Interventional Radiology Unit [address] [place] [address] 04/02/2024 15:15 EDT Office Visit [facility] Surgical Oncology - [address] 617261 Adolfo Carreno MD [address] [place] [address] [phone] 04/05/2024 9:30 EDT Telemedicine [facility] Palliative Care Services [address] [place] [address] 847291 Chichi Woods MD [address] [place] [address] [phone] 04/11/2024 15:[address] [facility] Hematology & Oncology - [address] 145521 Alisson Carreon MD [address] [place] [address] [phone] 04/13/2024 13:[address] [facility] Hematology & Oncology - [address] 909801 04/13/2024 14:[address] [facility] Hematology & Oncology - [address] [address] 04/16/2024 10:00 EST Telemedicine [facility] Palliative Care Services [address] [place] [address] [phone] Chichi Woods MD [address] [place] [address] [phone] 04/24/2024 9:00 EST Appointment [facility] Radiology CT Outpatient - [address] 896261 04/24/2024 11:00 EST Appointment [facility] Breast Imaging - [facility] [address] [place] [address] [place] [address] 04/27/2024 12:[address] [facility] Hematology & Oncology - [address] [address] 05/02/2024 15:[address] [facility] Hematology & Oncology - [address] [address] Alisson Carreon MD [address] [place] [address], Level [address] [place] [phone] 05/04/2024 10:15 EST Ancillary Procedure [facility] Cardiology - [address] [place] [address] 05/04/2024 11:[address] [facility] Hematology & Oncology - [address] [address] 05/04/2024 12:[address] [facility] Hematology & Oncology - [address] [phone] 06/12/2024 13:00 EST Appointment [facility] Radiology CT - [address] [phone] documented as of this encounter Visit Diagnoses Not on filedocumented in this encounter Care Teams Journalism Internship Relationship Specialty Start Date End Date Linda Blancas MD [facility] [address] [place] [address] PCP - General 01/06/11 documented as of this encounter
--- OUTSIDE RECORDS SUMMARY | 2024-03-20 15:11 | XMS_ITS | Encounter Summary ---
Author Organization Health system Address [address] [place] [address] Care Team Providers Care Fish Butcher Name Role Phone Linda Blancas MD Primary Care Provider [phone] Reason for Visit * Reason Comments Back Pain Encounter Details Date Type Department Care Team (Late st Contact Info) Description 05/30/2012 11:30 EST Office Visit [facility] Spine Program - [address] [place] [address] Felipe Ny MD [address] [place] [address] [place] [phone] Congenital spondylolisthesis (Primary Dx) Social History Tobacco Use [...] Progress Notes * Felipe Ny MD - 06/01/2012 0805 EST Spine [place] [facility] (SpINE) Orthopaedics and Rehabilitation [address] [place] [address] PROGRESS/FOLLOWUP NOTE - 05/30/2012 PROBLEM LIST: 1. Low back 50%, right leg pain 50% pain. a. L3, L4, L5 isthmic spondylolisthesis. b. Foraminal stenosis. c. ASF PSF L3-S1 12/13/11. 2. Breast cancer November of 2003. a. Status post mastectomy and reconstruction. 3. Status post bilateral carpal tunnel release. SUBJECTIVE: The patient returns for routine followup, now 6 months postop, doing extremely well. She has some difficulty getting nylons on and occasionally has had some episodes of gas and stomach bloating but otherwise has had significant improvement in preoperative back and leg pain. She is dancing, traveling and overall making excellent progress. OBJECTIVE: Incisions well healed, neurologically intact. DIAGNOSTIC DATA: X-rays, AP and lateral, show her hardware in good position, no halos, loosening ormigration. Interbody grafts appear to be healing well at L5- S1 delayed consolidation at L3-4 and L4-5. ASSESSMENT: Patient making excellent symptomatic and functional gains. PLAN: 1. Progress activities as tolerated. 2. Follow up in 6 months. AP and lateral lumbar spine to be obtained prior to being seen. Electronically Signed by Felipe Ny MD 06/02/2012 12:50 Felipe Ny MD - Felipe Ny MD - [facility] Job ID: Doc ID: [id number] [facility] Doc ID: [id number] cc: * Felipe Ny MD - 05/30/2012 1223 EST This office note has been dictated. FELIPE [place] MD \ documented in this encounter Plan of Treatment Upcoming Encounters Date Type Department Care Team (Late st Contact Info) Description 04/02/2024 10:30 EDT Appointment [facility] Interventional Radiology Unit [address] [place] [address] 04/02/2024 15:15 EDT Office Visit [facility] Surgical Oncology - [address] [phone] Adolfo Carreno MD [address] [place] [address] [phone] 04/05/2024 9:30 EDT Telemedicine [facility] Palliative Care Services [address] [place] [address] Chichi Woods MD [address] [place] [address] [phone] 04/11/2024 15:00 EDT Telemedicine [facility] Hematology & Oncology - [address] 220951 Alisson Carreon MD [address] [place] [address] [phone] 04/13/2024 13:30 EDT Appointment [facility] Hematology & Oncology - [address] [phone] 04/13/2024 14:00 EDT Appointment [facility] Hematology & Oncology - [address] [address] 04/16/2024 10:00 EST Telemedicine [facility] Palliative Care Services [address] [place] [address] [phone] Chichi Woods MD [address] [place] [address] [phone] 04/24/2024 9:00 EST Appointment [facility] Radiology CT Outpatient - [address] [address] 04/24/2024 11:00 EST Appointment [facility] Breast Imaging - [facility] [address] [place] [address] [place] [address] 04/27/2024 12:00 EST Appointment [facility] Hematology & Oncology - [address] [address] 05/02/2024 15:00 EST Telemedicine [facility] Hematology & Oncology - [address] [address] Alisson Carreon MD [address] [place] [address], Level [address] [place] [phone] 05/04/2024 10:15 EST Ancillary Procedure [facility] Cardiology - [address] [place] [address] 05/04/2024 11:30 EST Appointment [facility] Hematology & Oncology - [address] [phone] 05/04/2024 12:00 EST Appointment [facility] Hematology & Oncology - [address] [address] 06/12/2024 13:00 EST Appointment [facility] Radiology CT - [address] [phone] documented as of this encounter Visit Diagnoses Diagnosis Congenital spondylolisthesis- Primary documented in this encounter Historical Medications * This list may reflect changes made after this encounter. Medication Sig Dispensed Refills Start Date End Date ibuprofen (MOTRIN) 200 mg tablet Take 200-400 mg by mouth as needed. 08/30/2018 added in this encounter Care Teams Fish Butcher Relationship Specialty Start Date End Date Linda Blancas MD [facility] [address] [place] [address] PCP - General 01/06/11 documented as of this encounter
--- OUTSIDE RECORDS SUMMARY | 2024-03-20 15:11 | XMS_ITS | Encounter Summary ---
Author Organization [facility] Address [address] [place] [address] Care Team Providers Care Director Telehealth Name Role Phone Linda Blancas MD Primary Care Provider [phone] Reason for Visit * Reason Comments Foot Pain left Encounter Details Date Type Department Care Team (Late st Contact Info) Description 07/11/2013 8:00 EST Office Visit [facility] Hand & Upper Extremity Program - [facility] [place] [address] Ab Lucia MD [address] [place] [phone] Foot pain, left (Primary Dx) Discharge Disposition: Auto Discharge Social [...] - Inhaled Oxygen Concentration - - Weight 70.3 kg (155 lb) 07/11/2013 0803 EST Height 157.5 cm (5' 2) 07/11/2013 0803 EST Body Mass Index 28.35 07/11/2013 0803 EST documented in this encounter Functional Status Cognitive Status Response Date of Assessm ent Because of a physical, menta l, or emotional condition, do you have serious difficulty concentrating, remembering, or making decisions? (5 years old or older) No 12/13/2011 documented as of this encounter Discharge Diagnoses Diagnosis 729.5 PAIN IN LIMB[ICD-9-CM] documented in this encounter Discharge Disposition Disposition Code Departure Means Destination Auto Discharge documented in this encounter Progress Notes * Ab Lucia MD - 07/11/2013 0836 EST This office note has been dictated. documented in this encounter Procedure Notes * Ab Lucia MD - 07/11/2013 1512 EST ORTHOPAEDICS AND REHABILITATION SERVICES ELECTRODIAGNOSTIC MEDICINE CONSULTATION - 07/11/2013 ATTENDING PROVIDER: Ab Lucia MD REQUESTING PROVIDER: Annalisa Barber APRN PRIMARY CARE PROVIDER: Linda Blancas MD HISTORY: The patient is a remarkably charming 52-year-old female who is here today at the request of Annalisa Barber. She has an 18 month history of very aggravating pain in her left foot and heel. I have reviewed multiple treatment notes. She has been walking with a walking boot and taking anti-inflammatory agents. She continues to have these symptoms. Annalisa Rivera's most recent reevaluation is reviewed, and the patient is here today for my examination. For past medical history, problem list and medication list, I refer to the [facility] intake. She does have a history of lumbar radiculopathy, although it was in the right lower extremity. FAMILY HISTORY: Noncontributory. REVIEW OF SYSTEMS: Please see intake format. This is reviewed with the patient and signed. OBJECTIVE: On examination the patient is a very pleasant lady. She is 5 feet 2 inches, 155 pounds. She appears quite healthy. She walks with a limp on her left foot. Visual inspection of the feet shows relatively high arches. She has excellent muscularity of both feet on both the dorsal and plantar foot musculature. She is exquisitely tender along the mid heel onthe left side and then out into the plantar fascia more so on the medial aspect than the lateral aspect. She has an equivocal Tinel's sign over her tibial nerve at the tarsal tunnel and negative tarsal compression test. Knee jerks and ankle jerks are intact. No edema is noted. Her skin is normal. Her nails are normal. In order to investigate the status of her peripheral nerves, the plan is to perform electrodiagnostics. Nerve Distal Latency Evoked Nerve Conduction Comments (NI<3.6) Response Velocity Amplitude Right tibial motor 4.0 5.8 mV Left tibial motor 4.6 8.8 mV Left peroneal motor 3.9 5.9 mV EMG REPORT: A monopolar exploring electrode was used with standard technique. Muscles examined included the left medial and lateral plantar foot musculature, extensor digitorum brevis, anterior tibialis, extensor hallucis longus, and soleus. FINDINGS: There was normal insertional activity in all muscles tested. All muscles showed electrical silence at rest and recruitment patterns proportionate to effort. IMPRESSION: 1. This was a normal study. 2. There is no evidence of tarsal tunnel syndrome. The peripheral nerves appear quite healthy. After the testing was completed, I had a lengthy discussion with the patient regarding the testing,the anatomy, some of the standard treatment options and issues. All of her questions were answered. Ab Lucia MD 09 03 AM - Ab Lucia MD cn Dictation ID: [id number] documented in this encounter Plan of Treatment Upcoming Encounters Date Type Department Care Team (Late st Contact Info) Description 04/02/2024 10:30 EDT Appointment [facility] Interventional Radiology Unit [address] [place] [address] [phone] 04/02/2024 15:15 EDT Office Visit [facility] Surgical Oncology - [address] [phone] Adolfo Carreno MD [address] [facility], Level [address] [place] [phone] 04/05/2024 9:30 EDT Telemedicine [facility] Palliative Care Services [address] [place] [address] [phone] Chichi Woods MD [address] [place] [phone] 04/11/2024 15:00 EDT Telemedicine [facility] Hematology & Oncology [address] [phone] Alisson Carreon MD [address] [place] [address], [address] [place] [phone] 04/13/2024 13:30 EDT Appointment [facility] Hematology & Oncology [address] [phone] 04/13/2024 14:00 EDT Appointment [facility] Hematology & Oncology [address] [phone] 04/16/2024 10:00 EST Telemedicine [facility] Palliative Care Services [address] [place] [address] [phone] Chichi Woods MD [address] [place] [address] [phone] 04/24/2024 9:00 EST Appointment [facility] Radiology CT Outpatient - [address] 137441 04/24/2024 11:00 EST Appointment [facility] Breast Imaging - [address] [phone] 04/27/2024 12:00 EST Appointment [facility] Hematology & Oncology [address] [phone] 05/02/2024 15:00 EST Telemedicine [facility] Hematology & Oncology [address] 169011 Alisson Carreon MD [address] [place] [address], [address] [place] [phone] 05/04/2024 10:15 EST Ancillary Procedure [facility] Cardiology - [address] [place] [address] 05/04/2024 11:30 EST Appointment [facility] Hematology & Oncology [address] [phone] 05/04/2024 12:00 EST Appointment [facility] Hematology & Oncology [address] [phone] 06/12/2024 13:00 EST Appointment [facility] Radiology CT - [address] [phone] documented as of this encounter Visit Diagnoses Diagnosis Foot pain, left- Primary Pain in limb documented in this encounter Care Teams Director Telehealth Relationship Specialty Start Date End Date Linda Blancas MD [address] [place] [address] [address] [place] [address] PCP - General 01/06/11 documented as of this encounter
--- OUTSIDE RECORDS SUMMARY | 2024-03-20 15:11 | XMS_ITS | Encounter Summary ---
Author Organization [facility] Address [address] [place] [address] Care Team Providers Care Tire Recapper Name Role Phone Linda Blancas MD Primary Care Provider [phone] Encounter Details Date Type Department Care Team (Late st Contact Info) Description 09/13/2013 13:05 EDT - 09/13/2013 23:59 EDT Hospital Encounter [address] [address] Pavan Schaffer MD [address] [facility], [facility] 2 [place] [phone] Discharge Disposition: Home or Self Care Social [...] documented in this encounter Progress Notes * SALES REPRESENTATIVE SUPERVISOR, ERIK 2 - 09/28/2013 0052 EDT documented in this encounter Plan of Treatment Upcoming Encounters Date Type Department Care Team (Late st Contact Info) Description 04/02/2024 10:30 EDT Appointment [facility] Interventional Radiology Unit [address] [place] [address] [phone] 04/02/2024 15:15 EDT Office Visit [facility] Surgical Oncology - [facility] [address] [place], [place] [phone] Adolfo Carreno MD 111 [facility], [facility], Level [address] [place] [phone] 04/05/2024 9:30 EDT Telemedicine [facility] Palliative Care Services [address] [place] [address] Chichi Woods MD [address] [place] [phone] 04/11/2024 15:00 EDT Telemedicine [facility] Hematology & Oncology - [address] [phone] Alisson Carreon MD [address] [place] [address] 2 [place] [phone] 04/13/2024 13:30 EDT Appointment [facility] Hematology & Oncology - [address] [address] 04/13/2024 14:00 EDT Appointment [facility] Hematology & Oncology - [address] [address] 04/16/2024 10:00 EST Telemedicine [facility] Palliative Care Services [address] [place] [address] [phone] Chichi Woods MD [address] [place] [address] [phone] 04/24/2024 9:00 EST Appointment [facility] Radiology CT Outpatient - [address] [phone] 04/24/2024 11:00 EST Appointment [facility] Breast Imaging - [address] [address] 04/27/2024 12:00 EST Appointment [facility] Hematology & Oncology - [address] 193911 05/02/2024 15:00 EST Telemedicine [facility] Hematology & Oncology [address] [phone] Alisson Carreon MD [address] [facility], [facility], [address] [place] [phone] 05/04/2024 10:15 EST Ancillary Procedure [facility] Cardiology - [address] [place] [address] 05/04/2024 11:30 EST Appointment [facility] Hematology & Oncology [address] [phone] 05/04/2024 12:00 EST Appointment [facility] Hematology & Oncology [address] 944171 06/12/2024 13:00 EST Appointment [facility] Radiology CT - [address] [phone] documented as of this encounter Procedures Procedure Name Priority Date/Time Associated Diagnosis Comments MA 2D UNILATERAL LEFT ONLY SCREENING MAMMO 10/04/2014 13:54 EDT documented in this encounter Results * UNILATERAL LEFT ONLY ROUTINE 2D SCREENING (10/04/2014 13:54 EDT) Anatomical Region Laterality Modality Other 10/04/2014 13:5 4 EDT 10/09/2014 17:08 EDT Narrative 10/09/2014 17:08 EDT Comparison has been made to previous images. Left Breast Findings: (Routine digital views with CAD and implant displaced views) There are scattered fibroglandular densities (25% - 50% fibroglandular). A normal-appearing saline implant is present. There are no other significant abnormalities. IMPRESSION: LEFT BREAST: A normal-appearing saline implant. Benign, no evidence of malignancy. Normal interval follow-up is recommended in 12 months. OVERALL ASSESSMENT - CATEGORY 2 - BENIGN END OF IMPRESSION These results will be communicated to your patient via a lay letter from Radiology. If any additional imaging is needed we will contact your patient directly. Procedure Note Ivania Cardona MD - 10/09/2014 Comparison has been made to previous images. Left Breast Findings: (Routine digital views with CAD and implant displaced views) There are scattered fibroglandular densities (25% - 50% fibroglandular). A normal-appearing saline implant is present. There are no other significant abnormalities. IMPRESSION: LEFT BREAST: A normal-appearing saline implant. Benign, no evidence of malignancy. [...] on filedocumented in this encounter Care Teams Tire Recapper Relationship Specialty Start Date End Date Linda Blancas MD [facility] [address] [place] [address] PCP - General 01/06/11 documented as of this encounter
--- OUTSIDE RECORDS SUMMARY | 2024-03-20 15:11 | XMS_ITS | Encounter Summary ---
Author Organization [facility] Address [address] [place] [address] Care Team Providers Care Lime Trimmer Name Role Phone Ramses Blancas MD Primary Care Provider [phone] Reason for Visit * Reason Comments Hand Injury left hand Encounter Details Date Type Department Care Team (Late st Contact Info) Description 05/21/2013 11:00 EST Office Visit [facility] Hand & Upper Extremity Program - [address] [address] Jj Valenzuela MD [address] [place] [phone] Trigger thumb of left hand (Primary Dx) Discharge Disposition: Auto Discharge Social [...] - Inhaled Oxygen Concentration - - Weight 72.1 kg (159 lb) 05/21/2013 1419 EST Height 157.5 cm (5' 2) 05/21/2013 1419 EST Body Mass Index 29.08 05/21/2013 1419 EST documented in this encounter Functional Status Cognitive Status Response Date of Assessm ent Because of a physical, menta l, or emotional condition, do you have serious difficulty concentrating, remembering, or making decisions? (5 years old or older) No 12/13/2011 documented as of this encounter Discharge Diagnoses Diagnosis 727.03 TRIGGER FINGER[ICD-9-CM] documented in this encounter Discharge Disposition Disposition Code Departure Means Destination Auto Discharge documented in this encounter Progress Notes * Jj Valenzuela MD - 05/21/2013 1423 EST NEW PATIENT NOTE Chief Complaint Patient presents with ??? Hand Injury left hand HPI: Sunshine Pleitez is a 52 y.o.-year-old female. This patient is being seen as a new patient with regard to a left trigger thumb. It came on suddenly about 3 months ago. She did call the office and made an appointment, but in the meantime things have improved. She has no more clicking, butdoes have some tenderness. She is not diabetic. Patient Active Problem List Diagnosis ??? LGSIL [...] ??? Plantar fasciitis of left foot ??? Right ankle instability ??? Hallux rigidus of right foot Past Medical History Diagnosis Date ??? 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 Allergy Past Surgical History Procedure Laterality Date ??? [...] Brother 59 esophageal Current Outpatient Prescriptions Medication Status Sig Dispense Refill ??? calcium-vitamin D (OS-CHAR D) 500 mg(1,250mg) -200 unit per tablet Active Take 1 Tab by mouth 2 times daily with breakfast and dinner. ??? DOXYLAMINE SUCCINATE (UNISOM ORAL) Active Take by mouth as needed. Takes half a tablet ??? gabapentin (NEURONTIN) 100 mg capsule Active Take 2 Caps by mouth 2 times daily. 360 Cap 3 ??? gabapentin (NEURONTIN) 300 mg capsule Active Take 2 Caps by mouth at bedtime. 180 Cap 3 ??? ibuprofen (MOTRIN) 200 mg tablet Active Take 200-400 mg by mouth as needed. ??? MULTIVITS W-CA,FE,OTHER MIN (WOMEN'S DAILY FORMULA ORAL) Active Take by mouth daily. ??? omeprazole (PRILOSEC) 20 mg capsule Active Take 20 mg by mouth daily. ??? RED YEAST RICE EXTRACT ORAL Active Take 1,200 mg by mouth daily. ??? valACYclovir (VALTREX) 500 mg tablet Active Take 1 Tab by mouth daily. 90 Tab 3 ??? venlafaxine (EFFEXOR-XR) 150 mg XR capsule Active Take 1 Cap by mouth daily. 90 Cap 3 No current facility-administered medications for this visit. Allergies Allergen Reactions ??? Sulfa (Sulfonamide Antibiotics) Hives Light lavender rash REVIEW OF SYSTEMS: Documented on the patient intake form. These were reviewed by me. Pertinent positives mentioned above. PHYSICAL EXAM: Patient is in no acute distress, appears normal, mood and affect appropriate, alert and oriented x3. Good historian. left Thumb: Skin: Intact, no skin changes. Vascular: Good capillary refill. Neuro: Sensation intact Musculoskeletal: She has tenderness in the thumb at the MCP joint level on the palmar side, but no triggering today on exam. Full ROM. IMAGING: None viewed today. ASSESSMENT AND MEDICAL DECISION MAKING: The patient is here today with complaints of triggering in the left thumb. This came on about 3 months ago, but has improved in the meantime. The diagnosis of trigger finger was described for her, along with the reasons why she had had her symptoms. Certainly for now, as her symptoms are improving,there is no need to consider surgery. In terms of treatment, we would start with cortisone injection in any case. If her symptoms come back or are worse, it may be that cortisone injection would be indicated. She can also try taking some regular Advil to decrease inflammation. She was satisfied with this plan as she is really not having symptoms for now. If she has return of symptoms she knows to call this office and set up an appointment with one of our PAs for cortisone injection. Follow up PRN. I, Chelle Sparks, am scribing for Dr. Jj Valenzuela, while he is personally performing the service. 05/21/2013 14:23 Cc: RAMSES BLANCAS MD Cc: Self documented in this encounter Plan of Treatment Upcoming Encounters Date Type Department Care Team (Late st Contact Info) Description 04/02/2024 10:30 EDT Appointment [facility] Interventional Radiology Unit [address] [place] [address] [phone] 04/02/2024 15:15 EDT Office Visit [facility] Surgical Oncology - [address] [phone] Adolfo Carreno MD [address] [place] [address] [address] [place] [phone] 04/05/2024 9:30 EDT Telemedicine [facility] - [facility] Palliative Care Services [address] [place] [address] [phone] Chichi Woods MD [address] [place] [phone] 04/11/2024 15:00 EDT Telemedicine [facility] Hematology & Oncology - [address] [phone] Alisson Carreon MD [address] [place] [address], [facility] [address] [place] [phone] 04/13/2024 13:30 EDT Appointment [facility] Hematology & Oncology - [address] [phone] 04/13/2024 14:00 EDT Appointment [facility] Hematology & Oncology [address] [phone] 04/16/2024 10:00 EST Telemedicine [facility] - [facility] [address] [place] [address] [id number] Chichi Woods MD [address] [place] [address], [address] [phone] 04/24/2024 9:00 EST Appointment [facility] Radiology CT Outpatient - [address] [id number] 04/24/2024 11:00 EST Appointment [facility] Breast Imaging - [facility] [address] [address] [place], [place] [phone] 04/27/2024 12:00 EST Appointment [facility] Hematology & Oncology [address] [phone] 05/02/2024 15:00 EST Telemedicine [facility] Hematology & Oncology [address] [phone] Alisson Carreon MD [address] [place] [address], Level [address] [place] [phone] 05/04/2024 10:15 EST Ancillary Procedure [facility] Cardiology [place] [place] [address] 05/04/2024 11:30 EST Appointment [facility] Hematology & Oncology [address] [phone] 05/04/2024 12:00 EST Appointment [facility] Hematology & Oncology - [address] [phone] 06/12/2024 13:00 EST [facility]ointment [facility] - [facility] [address] [place] [address] documented as of this encounter Visit Diagnoses Diagnosis Trigger thumb of left hand- Primary Trigger finger (acquired) documented in this encounter Care Teams Lime Trimmer Relationship Specialty Start Date End Date Ramses Blancas MD [facility] [address] [place] [address] PCP - General 01/06/11 documented as of this encounter
--- OUTSIDE RECORDS SUMMARY | 2024-03-20 15:11 | XMS_ITS | Encounter Summary ---
Author Organization [facility] Address [address] [place] [address] Care Team Providers Care Transmission Calibration Engineer Name Role Phone Linda Blancas MD Primary Care Provider [phone] Reason for Visit * Reason Onset Date Comments Cast Problem 08/21/2013 got cast wet and the cast is cracked at the little toe. Encounter Details Date Type Department Care Team (Late st Contact Info) Description 08/21/2013 Telephone [facility] Foot & Ankle Program - [address] [address] Alex Peñaloza MD [address] [place] [phone] Cast Problem (got cast wet and the cast is cracked at the little toe.) Social History Tobacco Use Types Packs/Day Years [...] encounter Miscellaneous Notes * Telephone Encounter - Hansa Gee - 08/21/2013 0916 EDT Patient called to report that she got the cast a little wet a few times and also that the cast is cracked at her little toe and it is pinching her with each step. She would like to have her cast changed. I have coordinated with her an appointment for today (08/21/2013) at 1:45pm when her can drive her. Hansa Gee documented in this encounter Plan of Treatment Upcoming Encounters Date Type Department Care Team (Late st Contact Info) Description 04/02/2024 10:30 EDT Appointment [facility] Interventional Radiology Unit [address] [place] [phone] 04/02/2024 15:15 EDT Office Visit [facility] Surgical Oncology - [address] [phone] Adolfo Carreno MD [address] [place] [address] [address] [place] [phone] 04/05/2024 9:30 EDT Telemedicine [facility] Palliative Care Services [address] [place] [address] [phone] Chichi Woods MD [address] [place] [phone] 04/11/2024 15:00 EDT Telemedicine [facility] Hematology & Oncology [address] [phone] Alisson Carreon MD [address] [place] [address] [address] [place] [phone] 04/13/2024 13:30 EDT Appointment [facility] Hematology & Oncology - [address] [phone] 04/13/2024 14:00 EDT Appointment [facility] Hematology & Oncology - [address] [address] 04/16/2024 10:00 EST Telemedicine [facility] - [facility] Palliative Care Services [address] [place] [address] Chichi Woods MD [address] [facility], [address] [phone] 04/24/2024 9:00 EST Appointment [facility] Radiology CT Outpatient - [address] [address] 04/24/2024 11:00 EST Appointment [facility] Breast Imaging - [facility] [address] [place], [place] [phone] 04/27/2024 12:00 EST Appointment [facility] Hematology & Oncology - [address] [phone] 05/02/2024 15:00 EST Telemedicine [facility] Hematology & Oncology - [address] [phone] Alisson Carreon MD [address] [place] [address], Level [address] [place] [phone] 05/04/2024 10:15 EST Ancillary Procedure [facility] Cardiology [place] [address] [place] [address] 05/04/2024 11:30 EST Appointment [facility] Hematology & Oncology - [address] [phone] 05/04/2024 12:00 EST Appointment [facility] Hematology & Oncology - [address] [phone] 06/12/2024 13:00 EST [facility]ment [facility] Rad[facility] - [address] [address] documented as of this encounter Visit Diagnoses Not on filedocumented in this encounter Care Teams Transmission Calibration Engineer Relationship Specialty Start Date End Date Linda Blancas MD [facility] [address] [place] [address] PCP - General 01/06/11 documented as of this encounter
--- OUTSIDE RECORDS SUMMARY | 2024-03-20 15:11 | XMS_ITS | Encounter Summary ---
Author Organization [facility] Address [address] [place] [address] Care Team Providers Care Inventory Control Coordinator Name Role Phone Ramses Blancas MD Primary Care Provider [phone] Reason for Referral * Consult, Test and Treat (Routine/Next Available) - Closed Specialty Diagnoses / Procedures Referred By Doug hearn Referred To Contact Rehab Therapies Diagnoses Plantar fasciitis of left foot Right ankle instability Kristin Barber NP [address] [place] [address] Referral ID Status Reason Start Date Expiration Date V isits Requested Visits Authorized [id number] Closed Specialty Services Required 03/14/2013 1 1 Question Answer Reason for Request: ankle proprioception exercises; plantar fasciitis stretches and treatment * Radiology Services (Routine/Next Available) - Closed Specialty Diagnoses / Procedures Referred By Doug hearn Referred To Contact Diagnoses Right foot pain Procedures FOOT 3 OR MORE VIEWS Kristin Barber NP [address] [place] [address] Referral ID Status Reason Start Date Expiration Date Visits Re quested Visits Authorized [id number] Closed 03/14/2013 1 1 Reason for Visit * Reason Comments Foot Problem Left foot Encounter Details Date Type Department Care Team (Late st Contact Info) Description 03/14/2013 10:30 EDT Office Visit [facility] - [address] [address] Kristin Barber NP [address] [place] [address] Plantar fasciitis of left foot (Primary Dx); Right ankle instability; Hallux rigidus of right foot; Right foot pain Discharge Disposition: Auto Discharge Social History Tobacco [...] - - Weight 72.1 kg (159 lb) 03/14/2013 1049 EDT Height 157.5 cm (5' 2) 03/14/2013 1049 EDT Body Mass Index 29.08 03/14/2013 1049 EDT documented in this encounter Functional Status Cognitive Status Response Date of Assessm ent Because of a physical, menta l, or emotional condition, do you have serious difficulty concentrating, remembering, or making decisions? (5 years old or older) No 12/13/2011 documented as of this encounter Discharge Disposition Disposition Code Departure Means Destination Auto Discharge documented in this encounter Progress Notes * Sandhya David MD - 10/18/2013 1601 EDT Attestation statement: Supervising Physician * Marek Barber NP - 03/15/2013 0923 EDT Diagnosis: 1. Plantar fasciitis of left foot (728.71) AMB CONSULT PHYSICAL THERAPY 2. Right ankle instability (718.87) AMB CONSULT PHYSICAL THERAPY 3. Hallux rigidus of right foot (735.2) GENERIC DME ORDER 4. Right foot pain (729.5) FOOT 3 OR MORE VIEWS Sunshine Pleitez is being seen today for Foot Problem We have been asked to see her in consultation by Self HPI: Sunshine Pleitez is a 52 y.o. female patient who presents with several feet complaints 1. Left heel pain, which is the worse of her problems. It started about 15 months ago. She does notrecall any injury and did not increase physical activity prior to the pain starting. Pain is aggravated when she first steps out of bed in the morning, with activity after a half-hour rest, with increased physical activity. Pain is alleviated a little by rest, by gel heel cups; she tried stretchingher big toe but ist did not help. 2. Right great toe joint pain and numbness ongoing for 2 - 3 years. Pain is aggravated only by wearing high heels. 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 3. Right lateral ankle pain that started last night. She was walking across her living room when her ankle buckled and she fell. It is the third time that this happens in the last 8 weeks. One of those instances caused her to fall on a hard surface, requiring 15 stitches on a wound below the left knee. Work: [employer] Pain Vitals: Pain Location: Foot Wesley-Barrios Pain Rating (Scale 0-10): Hurts whole lot Numeric Pain Level (Scale 1-10): 8 Pain in another site? : No Pain Quality: Aching Pain Duration: Intermittent Past medical history, medications, allergies, past surgical, social and family history were reviewed and noted in [facility]ISM. The intake form was reviewed with patient and signed. Functional Evaluation: Functionally, She reports: Limping: Yes - each morning or after prolonged sitting due to left heel pain Limitation of walking distance: No; Use of walking aids: No; Using a bannister to climb steps: Yes; Difficulty walking on uneven surfaces or hills: No; Limitations to shoe wear: Yes; Limitations to running: none Limitations to usual athletic activity: Activities - ballroom dancing, walking, snowshoeing; Limitations - mild Patient Active Problem List Diagnoses Date Noted ??? Personal history of malignant neoplasm of breast 02/25/2012 Priority: Medium ??? Plantar fasciitis of left foot 03/14/2013 ??? Right ankle instability 03/14/2013 ??? Hallux rigidus of right foot 03/14/2013 ??? Acquired absence of breast and nipple 09/16/2011 ??? Lumbar radicular syndrome 01/18/2011 ??? Acquired spondylolisthesis 01/18/2011 ??? Lumbosacral spondylosis without myelopathy 01/18/2011 ??? Unspecified menopausal and postmenopausal disorder 09/26/2009 ??? Routine gynecological examination 09/26/2009 ??? Premature ovarian failure 09/12/2009 ??? Herpes simplex type 2 infection 09/12/2009 ??? LGSIL on Pap Smear 03/11/2009 Past Medical History Diagnosis Date ??? 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 Allergy Past Surgical History Procedure Date ??? Breast surgery 01/30/2004 Right mastectomy [...] Outpatient Prescriptions Medication Sig Dispense Refill ??? omeprazole (PRILOSEC) 20 mg capsule Take 20 mg by mouth daily. ??? venlafaxine (EFFEXOR-XR) 150 mg XR capsule Take 1 Cap by mouth daily. 90 Cap 3 ??? valACYclovir (VALTREX) 500 mg tablet Take 1 Tab by mouth daily. 90 Tab 3 ??? gabapentin (NEURONTIN) 300 mg capsule Take 2 Caps by mouth at bedtime. 180 Cap 3 ??? gabapentin (NEURONTIN) 100 mg capsule Take 2 Caps by mouth 2 times daily. 360 Cap 3 ??? ibuprofen (MOTRIN) 200 mg tablet Take 200-400 mg by mouth as needed. ??? calcium-vitamin D (OS-CHAR D) 500 mg(1,250mg) -200 unit per tablet Take 1 Tab by mouth 2 times daily with breakfast and dinner. ??? RED YEAST RICE EXTRACT ORAL Take 1,200 mg by mouth daily. ??? DOXYLAMINE SUCCINATE (UNISOM ORAL) Take by mouth as needed. Takes half a tablet ??? MULTIVITS W-CA,FE,OTHER MIN (WOMEN'S DAILY FORMULA ORAL) Take by mouth daily. Allergies Allergen Reactions ??? Sulfa (Sulfonamide Antibiotics) Hives Light lavender rash Review of Systems A ten point review of systems was performed. Pertinent positives are listed below, all others are negative: Musculoskeletal: positive for as per HPI Vital signs: height is 157.5 cm (62) and weight is 72.122 kg (159 lb). PHYSICAL EXAM: Constitutional: NAD, Body mass index is 29.08 kg/(m^2). based on self-reported height/weight. Psychiatric: alert and oriented x3. Mood and affect appropriate. Good historian. Anxiety index is 5/10 Eyes: EOM are normal ENT: lips are soft and moist Cardiovascular: Capillary refill is normal and pedal pulses are palpable Pulmonary: respiratory effort is normal Neurological: epicritic sensations are intact. Musculoskeletal: Gait: Normal Foot alignment: arches are normal, with neutral alignment of the heels, neutral alignment of the ankle/hindfoot , and valgus alignment of the midfoot/forefoot. Hallux exam: no deformity with right decreased and left normal ROM, no inflammation and no tenderness. Lesser toes: no overlap deformities Tailors's bunions are absent Hammertoes are absent. Range of Motion: ankles bilateral decreased dorsiflexion, subtalar joints normal, chopart joints normal Motor Strength: Dorsiflexion is normal - Plantar flexion is normal - Resisted inversion is normal -Resisted eversion is normal Areas of swelling: none Areas of tenderness: left plantar medial heel; none in right first MTP joint; none in lateral ankle Skin exam: Metatarsal calluses: absent Skin lesions: no rashes, no scars on lower extremities Toenails onychomycosis: absent. Hematologic exam: Ecchymoses are absent. Prior workup of the patient: none Xrays obtained today: weightbearing right foot . Independent review: arthritic changes with bone spurring in first MTP joint. ASSESSMENT: 1. Plantar fasciitis of left foot AMB CONSULT PHYSICAL THERAPY 2. Right ankle instability AMB CONSULT PHYSICAL THERAPY 3. Hallux rigidus of right foot GENERIC DME ORDER 4. Right foot pain FOOT 3 OR MORE VIEWS Other Orders Placed This Visit Procedures ??? FOOT 3 OR MORE VIEWS ??? Ambulatory Consult Physical Therapy ??? Generic DME Order PLAN: Conservative and surgical treatment options for foot arthritis were discussed, as well as plantar fasciitis and ankle stability treatments. The patient was encouraged to try conservative treatment first and reserve surgery for when the pain negatively affects their quality of life. Plan includes: -Physical therapy: prescribed for plantar fasciitis as well as proprioception exercises -Activity: as tolerated -Shoe modifications: wear stiff soled shoes to decrease ROM in painful right first MTPjoint -Comfort: ice when inflammation present -Medications: OTC NSAID's prn for pain/inflammation - with meals -Orthotics: carbon fiber insert prescribed - patient made aware than insurance might not cover the cost of the inserts -X-rays for next visit:none -Follow up:Return in about 2 months (around 05/14/2013). Patient voices understanding and agrees with the plan. Dr. Sandhya David MD, was on site and available for questions during this visit. Cc: Requesting Provider - Self PCP - RAMSES BLANCAS MD documented in this encounter Miscellaneous Notes * Scanned Note-Null - STOCK CHECKERER, SCAN 2 - 03/22/2013 0741 EDT documented in this encounter Plan of Treatment Upcoming Encounters Date Type Department Care Team (Late st Contact Info) Description 04/02/2024 10:30 EDT Appointment [facility] Interventional Radiology Unit [address], [place] [phone] 04/02/2024 15:15 EDT Office Visit [facility] Surgical Oncology - [facility] [address], [place] [address] Adolfo Carreno MD [address] [facility], [address] [place] [phone] 04/05/2024 9:30 EDT Telemedicine [facility] - [facility] Palliative Care Services [address] [place] [phone] Chichi Woods MD [address] [place] [phone] 04/11/2024 15:00 EDT Telemedicine [facility] Hematology & Oncology - [address] [address] Alisson Carreon MD [address] [place] [address] [address] [place] [phone] 04/13/2024 13:30 EDT Appointment [facility] Hematology & Oncology - [address] [address] 04/13/2024 14:00 EDT Appointment [facility] Hematology & Oncology - [address] [address] 04/16/2024 10:00 EST Telemedicine [facility] Palliative Care Services [address] [place] [phone] Chichi Woods MD [address] [place] [phone] 04/24/2024 9:00 EST Appointment [facility] Radiology CT Outpatient - [address] [id number] 04/24/2024 11:00 EST Appointment [facility] Breast Imaging - [address] [phone] 04/27/2024 12:00 EST Appointment [facility] Hematology & Oncology - [address] [address] 05/02/2024 15:00 EST Telemedicine [facility] Hematology & Oncology [address] [address] Alisson Carreon MD 111 [facility], [address] [place] [phone] 05/04/2024 10:15 EST Ancillary Procedure [facility] Cardiology - [address] [place] [address] 05/04/2024 11:30 EST Appointment [facility] Hematology & Oncology [address] [address] 05/04/2024 12:00 EST Appointment [facility] Hematology & Oncology [address] [address] 06/12/2024 13:00 EST Appointment [facility] Radiology CT - [address] [address] Scheduled Referrals Name Type Priority Associated Diagnoses Orde r Schedule AMB CONSULT PHYSICAL THERAPY Outpatient Referral Routine Plantar Fasciitis Of Left Foot Right ankle instability Ordered: 03/14/2013 documented as of this encounter Procedures Procedure Name Priority Date/Time Associated Diagnosis Comments FOOT 3 OR MORE VIEWS Routine 03/14/2013 11:28 EDT Right foot pain documented in this encounter Results * FOOT 3 OR MORE VIEWS (03/14/2013 11:28 EDT) Anatomical Region Laterality Modality Other 03/14/2013 11:2 8 EDT 03/15/2013 16:41 EDT Narrative 03/15/2013 16:41 EDT FOOT 3 OR MORE VIEWS ??03/14/2013 11:28 AM Signs and Symptoms/Comments: ??729.5-Pain in [id number]; right foot pain . Findings: There are mild osteoarthritic changes in the 1st metatarsophalangeal joint. Procedure Note 03/15/2013 FOOT 3 OR MORE VIEWS 03/14/2013 11:28 AM Signs and Symptoms/Comments: 729.5-Pain in [id number]; right foot pain . Findings: There are mild osteoarthritic changes in the 1st metatarsophalangeal joint. Kristin Barber FRYER OPERATOR IMG DIAGNOST IC IMAGING ORDERABLES documented in this encounter Visit Diagnoses Diagnosis Plantar fasciitis of left foot- Primary Plantar fascial fibromatosis Right ankle instability Other joint derangement, not elsewhere classified, ankle and foot Hallux rigidus of right foot Hallux rigidus Right foot pain Pain in limb documented in this encounter Orders Equipment Count Last Ordered Date First Orde red Date GENERIC DME ORDER 1 03/14/2013 documented in this encounter Care Teams Inventory Control Coordinator Relationship Specialty Start Date End Date Ramses Blancas MD [address] [place] [address] PCP - General 01/06/11 documented as of this encounter
--- OUTSIDE RECORDS SUMMARY | 2024-03-20 15:11 | XMS_ITS | Encounter Summary ---
Author Organization [facility] Address [address] [place] [address] Care Team Providers Care Pile Driver Operator Barge Mounted Name Role Phone Linda Blancas MD Primary Care Provider Adolfo Carreno MD Unavailable [phone] Augustina Colin MD PhD Unavailable Unavailable Reason for Visit * Reason Comments Other Encounter Details Date Type Department Care Team (Late st Contact Info) Description 05/29/2012 Refill [facility] OBGYN Services - [address] [address] Quita Babb PA-C [address] [facility], [address] [place] [phone] Other Social History Tobacco Use Types Packs/Day [...] Da te valACYclovir (VALTREX) 500 mg tablet TAKE 1 TABLET DAILY 90 Tab 2 05/29/2012 08/16/2012 documented in this encounter Plan of Treatment Upcoming Encounters Date Type Department Care Team (Late st Contact Info) Description 04/02/2024 10:30 EDT Appointment [facility] Interventional Radiology Unit [address] [place] [phone] 04/02/2024 15:15 EDT Office Visit [facility] Surgical Oncology - [address] [phone] Adolfo Carreno MD [address] [place] [phone] 04/05/2024 9:30 EDT Telemedicine [facility] Palliative Care Services [address] [place] [phone] Chichi Woods MD [address] [place] [phone] 04/11/2024 15:00 EDT Telemedicine [facility] Hematology & Oncology [address] [address] Alisson Carreon MD [address] [place] [phone] 04/13/2024 13:30 EDT Appointment [facility] Hematology & Oncology [address] [phone] 04/13/2024 14:00 EDT Appointment [facility] Hematology & Oncology [address] [phone] 04/16/2024 10:00 EST Telemedicine [facility] Palliative Care Services [address] [place] [phone] Chichi Woods MD [address] [place] [address], [place] [address] [place] [phone] 04/24/2024 9:00 EST Appointment [facility] Radiology CT Outpatient - [address] [phone] 04/24/2024 11:00 EST Appointment [facility] Breast Imaging - [address] [phone] 04/27/2024 12:00 EST Appointment [facility] Hematology & Oncology [address] [phone] 05/02/2024 15:00 EST Telemedicine [facility] Hematology & Oncology [address] [phone] Alisson Carreon MD [address] [place] [address], [address] [place] [phone] 05/04/2024 10:15 EST Ancillary Procedure [facility] Cardiology [place] [place] [address] 05/04/2024 11:30 EST Appointment [facility] Hematology & Oncology [address] [phone] 05/04/2024 12:00 EST Appointment [facility] Hematology & Oncology [address] [phone] 06/12/2024 13:00 EST Appointment [facility] Radiology CT - [address] [phone] documented as of this encounter Visit Diagnoses Not on filedocumented in this encounter Discontinued Medications Medication Sig Discontinue Reason Start Date End Da te valACYclovir (VALTREX) 500 mg tablet Take 1 Tab by mouth daily. Reorder 06/21/2011 05/29/2012 documented as of this encounter Additional Health Concerns Infection Onset Date Last Indicated Resolved Time R/O COVID-19 12/12/2023 12/12/2023 12/12/2023 15:3 5 EDT R/O COVID-19 01/08/2024 01/08/2024 01/08/2024 18:2 6 EDT R/O COVID-19 01/16/2024 01/16/2024 01/16/2024 17:5 0 EDT documented as of this encounter Care Teams Pile Driver Operator Barge Mounted Relationship Specialty Start Date End Date Linda Blancas MD [facility] [address] [place] [address] PCP - General 01/06/11 Adolfo Carreno MD [address] [place] [address] 2 [place] [phone] General Surgery 04/26/19 Augustina Colin MD PhD [address] [place] [address] 2 [place] [phone] Medical Oncology 04/26/19 documented as of this encounter
--- OUTSIDE RECORDS SUMMARY | 2024-03-20 15:11 | XMS_ITS | Encounter Summary ---
Author Organization [facility] Address [address] [place] [address] Care Team Providers Care Plastics Fabricator And Assembler Name Role Phone Linda Blancas MD Primary Care Provider [phone] Reason for Visit * Reason Comments Gynecologic Exam Encounter Details Date Type Department Care Team (Late st Contact Info) Description 12/08/2012 14:15 EDT Office Visit [facility] OBGYN Services - [address] [address] Quita Babb PA-C [address] [facility], Level 2 [place] [address] Routine gynecological examination (Primary Dx) [...] Sign Reading Time Taken Comments Blood Pressure 100/68 12/08/2012 1414 EDT Pulse - - Temperature - - Respiratory Rate - - Oxygen Saturation - - Inhaled Oxygen Concentration - - Weight 70.6 kg (155 lb 9.6 oz) 12/08/2012 1414 E DT Height 158.8 cm (5' 2.5) 12/08/2012 1414 EDT Body Mass Index 28.01 12/08/2012 1414 EDT documented in this encounter Functional Status Cognitive Status Response Date of Assessm ent Because of a physical, menta l, or emotional condition, do you have serious difficulty concentrating, remembering, or making decisions? (5 years old or older) No 12/13/2011 documented as of this encounter Progress Notes * Quita Babb, TANK - 12/08/2012 1448 EDT Subjective: Patient ID: Sunshine Pleitez is an 52 y.o. female. Chief Complaint Patient presents with ??? Gynecologic Exam HPI Sunshine Pleitez is a 52 y.o. female who presents today for a yearly exam, last seen for an annual exam one year ago. 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 She began having abnormal pap smears in 2005, alternating between ASCUS and LSIL, and also was diagnosed with VAIN II and underwent laser therapy for that in 2005. She denies any vaginal bleeding. Helast abnormal pap smear was ASCUS with positive HR HPV in 2009, benign colposcopy, and her paps since then have been NIL. Last pap smear: 11/2011, NIL History of abnormal pap smears. Yes, as above History of STDs: yes, HSV II, on suppressive therapy with no outbreaks over the past year. Currently , monogamous relationship. Recently underwent back surgery, doing well. Vaginal complaints: none She also has had a long standing history of hot flashes since her initial diagnosis of POF in her 30's, initially she was on HRT, but discontinued this after her breast cancer diagnosis. She had beenon topical clonidine lotion, as well as black [...] to 150 mg daily with little relief. Lastyear we had also started gabapentin, 300 mg qhs, which helped somewhat, but she continued having hot flashes during the day. She currently takes 300 mg neurontin at bedtime, and 100 mg in the morningand at noon time. This helps, but she still does have some mild hot flashes, she wonders if there any any other remedies to try. Follows with Damian Brooke for her history of breast cancer. Last DEXA was in 09/20, was overall stable with some improvement. Recommended follow up in 5 years.She wonders today whether she should resume taking a bisphosphonate. Patient Active Problem List Diagnoses ??? LGSIL on Pap Smear ??? Premature ovarian failure ??? Herpes simplex type 2 infection ??? Unspecified menopausal and postmenopausal disorder ??? Routine gynecological examination ??? Lumbar radicular syndrome ??? Acquired spondylolisthesis ??? Lumbosacral spondylosis without myelopathy ??? Acquired absence of breast and nipple ??? Personal history of malignant neoplasm of breast Past Medical History Diagnosis Date ??? Breast [...] Smoking status: Never Smoker ??? Smokeless tobacco: Not on file ??? Alcohol Use: 1.5 oz/week 3 drink(s) per week Current Outpatient Prescriptions on File Prior to Visit Medication Sig Dispense Refill ??? venlafaxine (EFFEXOR-XR) 150 mg XR capsule [...] Musculoskeletal: Negative. Skin: Negative. Neurological: Negative. Endo/Heme/Allergies: Hot flashes, night sweats Psychiatric/Behavioral: Negative. - See HPI Objective: BP 100/68 Ht 158.8 cm (62.5) Wt 70.58 kg (155 lb 9.6 oz) BMI 28.01 kg/m2 Physical Exam Constitutional: She is oriented to person, place, and time. She appears well- developed and well-nourished. HENT: Head: Normocephalic and atraumatic. Neck: Normal range of motion. Cardiovascular: Normal rate and regular rhythm. Exam reveals no gallop and no friction rub. No murmur heard. Pulmonary/Chest: Effort normal. No respiratory distress. She has no wheezes. She has no rales. She exhibits no tenderness. Bilateral breast reconstruction Abdominal: Soft. She exhibits no distension and no mass. There is no tenderness. There is no rebound and no guarding. Genitourinary: There is no rash, tenderness, lesion or injury on the right labia. There is no rash,tenderness, lesion or injury on the left labia. Uterus is not deviated, not enlarged, not fixed andnot tender. Cervix exhibits no motion tenderness, no discharge and no friability. Right adnexum displays no mass, no tenderness and no fullness. Left adnexum displays no mass, no tenderness and no fullness. No erythema, tenderness or bleeding around the vagina. No foreign body around the vagina. Nosigns of injury around the vagina. No vaginal discharge found. Lymphadenopathy: She has no cervical adenopathy. Neurological: She is alert and oriented to person, place, and time. Skin: Skin is warm and dry. No rash noted. No erythema. No pallor. Psychiatric: She has a normal mood and affect. Assessment: Yearly ob gyn physician assistant exam. History of POF, and breast cancer, with some persistent hot flashes/night sweats. Plan: There are no diagnoses linked to this encounter. 1. Pap with HPV regardless. 2. Discussed her history of hot flashes, treatment history and current regimen with GUADALUPE attending, no new suggestions for medications, advise regular moderate exercise, in a pool is best (swimming, water aerobics), to avoid hot flashes. 3. Repeat DEXA 5 years following previous study. Return to office in 1 year, sooner PRN. TANK Crawford documented in this encounter Plan of Treatment Upcoming Encounters Date Type Department Care Team (Late st Contact Info) Description 04/02/2024 10:30 EDT Appointment [facility] Interventional Radiology Unit [address] [place] [address] [phone] 04/02/2024 15:15 EDT Office Visit [facility] Surgical Oncology - [address] [phone] Adolfo Carreno MD [address] [place] [address], [facility] [address] [place] [phone] 04/05/2024 9:30 EDT Telemedicine [facility] - [facility] Palliative Care Services [address] [place] [address] [phone] Chichi Woods MD [address] [place] [address], [place] [address] [place] [phone] 04/11/2024 15:00 EDT Telemedicine [facility] Hematology & Oncology - [address] [phone] Alisson Carreon MD [address] [place] [address], Level 2 [place] [phone] 04/13/2024 13:30 EDT Appointment [facility] Hematology & Oncology - [address] [phone] 04/13/2024 14:00 EDT Appointment [facility] Hematology & Oncology - [address] [phone] 04/16/2024 10:00 EST Telemedicine [facility] - [facility] Palliative Care Services [address] [place] [address] [phone] Chichi Woods MD [address] [place] [address], [address] [phone] 04/24/2024 9:00 EST Appointment [facility] Radiology CT Outpatient - [address] [address] 04/24/2024 11:00 EST Appointment [facility] Breast Imaging - [facility] S [address] 577681 04/27/2024 12:00 EST Appointment [facility] Hematology & Oncology [address] [phone] 05/02/2024 15:00 EST Telemedicine [facility] Hematology & Oncology - [address] [phone] Alisson Carreon MD [address] [place] [address], Level [address] [place] [phone] 05/04/2024 10:15 EST Ancillary Procedure [facility] Cardiology - [address] [place] [address] 05/04/2024 11:30 EST Appointment [facility] Hematology & Oncology - [address] [address] 05/04/2024 12:00 EST Appointment [facility] Hematology & Oncology - [address] [address] 06/12/2024 13:00 EST [facility] Rad[facility] - [address] [address] Scheduled Orders Name Type Priority Associated Diagnoses Orde r Schedule SCREENING PAP SMEAR;OBTAIN,PREP,CON VEY TO LAB Procedures Routine Routine gynecological examination Ordered: 12/08/2012 documented as of this encounter Visit Diagnoses Diagnosis Routine gynecological examination- Primary documented in this encounter Discontinued Medications Medication Sig Discontinue Reason Start Date End Da te acetaminophen (TYLENOL) 500 mg tablet Take 1,000 mg by mouth every 6 hours as needed. Patient Stopped Taking 12/08/2012 documented as of this encounter Care Teams Plastics Fabricator And Assembler Relationship Specialty Start Date End Date Linda Blancas MD [facility] [address] [place] [address] PCP - General 01/06/11 documented as of this encounter
--- OUTSIDE RECORDS SUMMARY | 2024-03-20 15:11 | XMS_ITS | Encounter Summary ---
Author Organization [facility] Address [address] [place] [address] Care Team Providers Care Television Journalist Name Role Phone Linda Blancas MD Primary Care Provider [phone] Reason for Visit * Reason Onset Date Comments Back Pain 11/16/2012 Encounter Details Date Type Department Care Team (Late st Contact Info) Description 11/16/2012 Orders Only [facility] Spine Program - [address] [address] Tylor Hanley MD [address] [place] [address] [place] [phone] Acquired spondylolisthesis (Primary Dx) Social History [...] [facility] Interventional Radiology Unit [address] [place] [address] 04/02/2024 15:15 EDT Office Visit [facility] Surgical Oncology - [address] [phone] Adolfo Carreno MD [address] [place] [phone] 04/05/2024 9:30 EDT Telemedicine [facility] Palliative Care Services [address] [place] [address] [phone] Chichi Woods MD [address] [place] [phone] 04/11/2024 15:00 EDT Telemedicine [facility] Hematology & Oncology - [address] [phone] Alisson Carreon MD [address] [place] [address] [phone] 04/13/2024 13:30 EDT Appointment [facility] Hematology & Oncology - [address] [phone] 04/13/2024 14:00 EDT Appointment [facility] Hematology & Oncology - [address] [address] 04/16/2024 10:00 EST Telemedicine [facility] Palliative Care Services [address] [place] [address] [phone] Chichi Woods MD [address] [place] [address] [phone] 04/24/2024 9:00 EST Appointment [facility] Radiology CT Outpatient - [address] [address] 04/24/2024 11:00 EST Appointment [facility] Breast Imaging - [facility] S [place] [address] [place] [address] 04/27/2024 12:00 EST Appointment [facility] Hematology & Oncology - [address] [address] 05/02/2024 15:00 EST Telemedicine [facility] Hematology & Oncology - [address] [address] Alisson Carreon MD [address] [place] [address], Level 2 [place] [phone] 05/04/2024 10:15 EST Ancillary Procedure [facility] Cardiology - [address] [place] [address] 05/04/2024 11:30 EST Appointment [facility] Hematology & Oncology - [address] [phone] 05/04/2024 12:00 EST Appointment [facility] Hematology & Oncology - [address] [phone] 06/12/2024 13:00 EST Appointment [facility] Radiology CT - [address] [phone] documented as of this encounter Visit Diagnoses Diagnosis Acquired spondylolisthesis- Primary documented in this encounter Care Teams Television Journalist Relationship Specialty Start Date End Date Linda Blancas MD [facility] [address] [place] [address] PCP - General 01/06/11 documented as of this encounter
--- OUTSIDE RECORDS SUMMARY | 2024-03-20 15:11 | XMS_ITS | Encounter Summary ---
Author Organization [facility] Address [address] [place] [address] Care Team Providers Care Parachute Panel Joiner Name Role Phone Linda Blancas MD Primary Care Provider [phone] Encounter Details Date Type Department Care Team (Latest Contact Info) Description 09/12/2012 10:16 EDT - 09/12/2012 23:59 EDT Hospital Encounter [address] [address] Damian Brooke ANP Discharge Disposition: Auto Discharge Social History Tobacco [...] Auto Discharge Home documented in this encounter Procedure Notes * DATA PROGRAMMER, SCAN 2 - 09/21/2012 0736 EDTAssociated Order(s): IMPLANT RECORD - SCANNED documented in this encounter Plan of Treatment Upcoming Encounters Date Type Department Care Team (Late st Contact Info) Description 04/02/2024 10:30 EDT Appointment [facility] Interventional Radiology Unit [address] [place] [address] 04/02/2024 15:15 EDT Office Visit [facility] Surgical Oncology - [facility] [address] [place], [place] [phone] Adolfo Carreno MD [address] [facility], Level 2 [place] [phone] 04/05/2024 9:30 EDT Telemedicine [facility] - [facility] Palliative Care Services [address] [place], [place] 961231 Chichi Woods MD [address] [facility], [address] [place] [phone] 04/11/2024 15:00 EDT Telemedicine [facility] Hematology & Oncology - [address] 998291 Alisson Carreon MD [address] [place] [address] 2 [place] [phone] 04/13/2024 13:30 EDT Appointment [facility] Hematology & Oncology [address] [phone] 04/13/2024 14:00 EDT Appointment [facility] Hematology & Oncology [address] 712871 04/16/2024 10:00 EST Telemedicine [facility] - [facility] Palliative Care Services [address] [place] [address] [phone] Chichi Woods MD [address] [place] [address] [address] [place] [phone] 04/24/2024 9:00 EST Appointment [facility] Radiology CT Outpatient - [address] [id number] 04/24/2024 11:00 EST Appointment [facility] Breast Imaging - [address] [phone] 04/27/2024 12:00 EST Appointment [facility] Hematology & Oncology - [address] [phone] 05/02/2024 15:00 EST Telemedicine [facility] Hematology & Oncology - [address] 923241 Alisson Carreon MD [address] [place] [address] 2 [place] [phone] 05/04/2024 10:15 EST Ancillary Procedure [facility] Cardiology - [address] [place] [address] 05/04/2024 11:30 EST Appointment [facility] Hematology & Oncology [address] [phone] 05/04/2024 12:00 EST Appointment [facility] Hematology & Oncology [address] 348471 06/12/2024 13:00 EST Appointment [facility] Radiology CT [address] [phone] documented as of this encounter Procedures Procedure Name Priority Date/Time Associated Diagnosis Comments IMPLANT RECORD - SCANNED 09/21/2012 7:36 EDT documented in this encounter Results * IMPLANT RECORD - SCANNED (09/21/2012 7:36 EDT) 09/21/2012 7:36 EDT Narrative 09/21/2012 7:40 EDT Procedure Note DATA PROGRAMMER, SCAN 2 - 09/21/2012 7:36 EDT Scan 2 Performance Consultant PROCEDURE/MINOR AJ GICAL ORDERABLES documented in this encounter Visit Diagnoses Not on filedocumented in this encounter Care Teams Parachute Panel Joiner Relationship Specialty Start Date End Date Linda Blancas MD [address] [place] [address] PCP - General 01/06/11 documented as of this encounter
--- OUTSIDE RECORDS SUMMARY | 2024-03-20 15:11 | XMS_ITS | Encounter Summary ---
Author Organization [facility] Address [address] [place] [address] Care Team Providers Care Ampoule Filler Name Role Phone Linda Blancas MD Primary Care Provider [phone] Encounter Details Date Type Department Care Team (Late st Contact Info) Description 02/28/2013 Results Only Imaging [facility] Surgical Oncology - [address] [phone] Pavan Schaffer MD [address] [facility], Level [address] [place] [address] Social History Tobacco Use Types [facility] [address] [place], [place] [phone] 04/02/2024 15:15 EDT Office Visit [facility] Surgical Oncology - [address] [phone] Adolfo Carreno MD [address] [place] [address] [phone] 04/05/2024 9:30 EDT Telemedicine [facility] Palliative Care Services [address] [place] [address] 974371 Chichi Woods MD [address] [place] [phone] 04/11/2024 15:00 EDT Telemedicine [email or web address] Hematology & Oncology - [address] [address] Alisson Carreon MD [address] [place] [address] [phone] 04/13/2024 13:30 EDT Appointment [email or web address] Hematology & Oncology [address] 243151 04/13/2024 14:00 EDT Appointment [email or web address] Hematology & Oncology - [address] [address] 04/16/2024 10:00 EST Telemedicine [facility] Palliative Care Services [address] [place] [address] [phone] Chichi Woods MD [address] [place] [phone] 04/24/2024 9:00 EST Appointment [facility] Radiology CT Outpatient - [address] [address] 04/24/2024 11:00 EST Appointment [facility] Breast Imaging - [facility] [address] [place] [address] [place] [address] 04/27/2024 12:00 EST Appointment [email or web address] Hematology & Oncology [address] [address] 05/02/2024 15:00 EST Telemedicine [email or web address] Hematology & Oncology [address] [address] Alisson Carreon MD [address] [place] [address], [facility], Level [address] [place] [phone] 05/04/2024 10:15 EST Ancillary Procedure [facility] Cardiology - [address] [place] [address] 05/04/2024 11:30 EST Appointment [email or web address] Hematology & Oncology [address] 769171 05/04/2024 12:00 EST Appointment [email or web address] Hematology & Oncology [address] [phone] 06/12/2024 13:00 EST Appointment [facility] Radiology CT - [address] [phone] documented as of this encounter Procedures Procedure Name Priority Date/Time Associated Diagnosis Comments SC MAMMO SCREENING DIGITAL 09/13/2013 13:33 EDT documented in this encounter Results * SC MAMMO SCREENING DIGITAL (09/13/2013 13:33 EDT) Anatomical Region Laterality Modality Other 09/13/2013 13:3 3 EDT 09/14/2013 11:59 EDT Narrative 09/14/2013 11:59 EDT Comparison has been made to previous [...] will contact your patient directly. Procedure Note 09/14/2013 Comparison has been made to previous images. [...] needed we will contact your patient directly. Pavan Schaffer MD IMG MAMMOGRAPHY OR DERABLES documented in this encounter Visit Diagnoses Not on filedocumented in this encounter Care Teams Ampoule Filler Relationship Specialty Start Date End Date Linda Blancas MD [address] [place] [address] PCP - General 01/06/11 documented as of this encounter
--- OUTSIDE RECORDS SUMMARY | 2024-03-20 15:11 | XMS_ITS | Encounter Summary ---
Author Organization [facility] Address [address] [place] [address] Care Team Providers Care Healthcare Advisory Services Manager Name Role Phone Linda Blancas MD Primary Care Provider [phone] Encounter Details Date Type Department Care Team (Late st Contact Info) Description 12/08/2012 Results Only [facility] OBGYN Services - [address] 175011 Quita Babb PA-C [address], Level 2 [place] [address] Social History Tobacco Use Types [...] EDT Appointment [facility] Interventional Radiology Unit [address] [place] [address] 04/02/2024 15:15 EDT Office Visit [facility] Surgical Oncology - [address] 748781 Adolfo Carreno MD [address] [place] [address] [phone] 04/05/2024 9:30 EDT Telemedicine [facility] Palliative Care Services [address] [place] [address] 969231 Chichi Woods MD [address] [place] [address] [phone] 04/11/2024 15:00 EDT Telemedicine [facility] Hematology & Oncology - [address] [address] Alisson Carreon MD [address] [place] [address] [phone] 04/13/2024 13:30 EDT Appointment [facility] Hematology & Oncology [address] [phone] 04/13/2024 14:00 EDT Appointment [facility] Hematology & Oncology - [address] [address] 04/16/2024 10:00 EST Telemedicine [facility] Palliative Care Services [address] [place] [address] [phone] Chichi Woods MD [address] [place] [address] [phone] 04/24/2024 9:00 EST Appointment [facility] Radiology CT Outpatient - [address] 278181 04/24/2024 11:00 EST Appointment [facility] Breast [facility] - [facility] [address] [place] [address] [place], [place] 852201 04/27/2024 12:00 EST Appointment [facility] Hematology & Oncology [address] [phone] 05/02/2024 15:00 EST Telemedicine [facility] Hematology & Oncology [address] 334861 Alisson Carreon MD [address] [place] [address], Level [address] [place] [phone] 05/04/2024 10:15 EST Ancillary Procedure [facility] Cardiology [place] [place] [address] 05/04/2024 11:30 EST Appointment [facility] Hematology & Oncology [address] [id number] 05/04/2024 12:00 EST Appointment [facility] Hematology & Oncology [address] 892911 06/12/2024 13:00 EST Appointment [facility] Radiology CT [address] 586991 documented as of this encounter Procedures Procedure Name Priority Date/Time Associated Diagnosis Comments PAP TEST- RESULT ONLY Routine 12/08/2012 0:00 EDT documented in this encounter Results * PAP TEST- RESULT ONLY (12/08/2012 0:00 EDT) Pathology Report: CYTOPATHOLOGY REPORT Reports generated via electronic interface contain original data; however they are lacking the format of the original report. Caution should be taken when reading/interpreti ng unformatted reports. Name: ? OCONNORWEST, PARDEEP A ? Accession #: ? [id number] ? : ? 1960 (Age: 52) ??F ?Collect Date: ? 12/08/2012 ? Location: ? OBGYN ? Receive Date: ? 12/13/2012 ? Provider: QUITA FU Copy to: ? Final Report SPECIMEN ADEQUACY ? Satisfactory for Evaluation - assessment of transformation zone component not applicable ( e.g. atrophy, vaginal sample, hysterectomy) - scant squamous epithelial component secondary to excessive inflammation GENERAL CATEGORIZATION ? Negative for Intraepithelial Lesion or Malignancy ?? Previous Gynecologic Pathology: CHARLY: hx of cervical dysplasia Specimen/Source: ??Pap Test, Cervix/Endocervix, ThinPrep Imaging System with manual evaluation Document reviewed and electronically signed by: ? YOSHI Spicer(ASCP) ? Report ??Date: 12/20/2012 10:09 HPV with Pap Test ? Date Ordered: ? 12/19/2012 ? Status: ?? Signed Out ?Date Complete: ? 12/22/2012 ? By: ??System Interface ? Date Reported: ? 12/22/2012 ? Interpretation RESULT: Negative for HPV. No E6 or E7 mRNA is detected from HPV types 16,18,31,33,35, 39,45,51,52,56,58, 59,66, and 68 by rubber liner mediated amplification. Comments Document reviewed and electronically signed by: ? System Interface ? Report date: 12/22/2012 By the signature above, the attending physician certifies that he/she has personally conducted a gross and/or microscopic examination of the described specimens and rendered or confirmed the above diagnosis. End of Report [facility] 12/08/2012 12/13/2012 Quita Babb PA-C PATHOLOGY JAIMEE ACOSTA Performing Organization Address City/State/[facility] Co de Phone Number [facility] [address] [place] [address] documented in this encounter Visit Diagnoses Not on filedocumented in this encounter Care Teams Healthcare Advisory Services Manager Relationship Specialty Start Date End Date Linda Blancas MD [facility] [address] [place], [place] [address] PCP - General 01/06/11 documented as of this encounter
--- OUTSIDE RECORDS SUMMARY | 2024-03-20 15:11 | XMS_ITS | Encounter Summary ---
Author Organization [facility] Address [address] [place] [address] Care Team Providers Care Chart Changer Name Role Phone Ramses Blancas MD Primary Care Provider [phone] Reason for Visit * Reason Comments Follow-up Left foot pain Encounter Details Date Type Department Care Team (Late st Contact Info) Description 05/09/2013 11:00 EST Office Visit [facility] Foot & Ankle Program - [address] [address] Kristin Barber NP [address] [place] [address] Plantar fasciitis of left foot [...] as of this encounter Progress Notes * Marek Barber, DAYNE - 05/09/2013 1333 EST Diagnosis: 1. Plantar fasciitis of left foot (728.71) EMG NEEDLE EXAM Sunshine Pleitez is being seen today for Follow-up . She was originally sent as a consultation from Dr. Blancas SUBJECTIVE: Sunshine Pleitez is a 52 y.o. female patient who returns for follow up for bilateral foot pain ongoing for about 18 months without any injury of increase in physical activity. Her right foot isall better and the pain in the great toe joint is gone. She has not purchased the carbon fiber insert yet but is wearing better shoes. Left heel pain has not shown any sustained improvement despite 6-8 sessions of physical therapy. Pain Vitals: Pain Location: Foot Numeric Pain Level (Scale 1-10): 10 Pain Quality: Constant;Shooting;Sharp Pain Duration: Continuous Outpatient Prescriptions Prior to Visit Medication Status Sig Dispense Refill ??? calcium-vitamin [...] Hives Light lavender rash REVIEW OF SYSTEMS: Negative, except for the pertinent positives noted above OBJECTIVE: Constitutional: NAD Psychiatric: A&O x3, mood and affect appropriate Gait: Antalgic. Exam of the left foot/ankle: Neurology: sensation intact ; percussion of PT nerve is negative Vascular: pedal pulses palpable Musculoskeletal: ROM good Skin: intact Tenderness: plantar heel, at fascia insertion Swelling: none Ecchymosis: absent X-rays today: none. ASSESSMENT: 1. Plantar fasciitis of left foot (728.71) EMG NEEDLE EXAM Patient is concerned about lack of improvement despite PT. She has a history of bilateral carpal tunnel syndrome and is wondering if the same could be going on in her left foot. PLAN: -Immobilization: 3-D walking boot -Activity: Activity as tolerated -Comfort: ice -Physical Therapy: continue until discharged -Stretching: continue -Test prior to next visit: EMG -X-rays for next visit: none -Follow up: Return for EST visit after EMG. Patient voices understanding and agrees with the plan. I spent a total of 20 minutes in face to face time with this patient and 15 minutes of that time was spent in counseling and coordination of care regarding their presenting problems. Symptoms for which to seek care were reviewed. All the questions were answered. Dr. Yosi Schaffer MD, was on site and available for questions during this visit. Cc: Referring Provider - Dr. Blancas PCP - RAMSES BLANCAS MD Attestation statement: Supervising Physician documented in this encounter Plan of Treatment Upcoming Encounters Date Type Department Care Team (Late st Contact Info) Description 04/02/2024 10:30 EDT Appointment [facility] Interventional Radiology Unit [address] [place] [address] [phone] 04/02/2024 15:15 EDT Office Visit [facility] Surgical Oncology - [facility] [address] [place], [place] 911751 Adolfo Carreno MD 111 [facility], Level 2 [place] [phone] 04/05/2024 9:30 EDT Telemedicine [facility] - [facility] Palliative Care Services [address] [place] [address] [phone] Chichi Woods MD [address] [place] [address] [address] [place] [phone] 04/11/2024 15:00 EDT Telemedicine [facility] Hematology & Oncology - [address] [phone] Alisson Carreon MD [address] [place] [address], [address] [place] [phone] 04/13/2024 13:30 EDT Appointment [facility] Hematology & Oncology [address] [phone] 04/13/2024 14:00 EDT Appointment [facility] Hematology & Oncology [address] 289661 04/16/2024 10:00 EST Telemedicine [facility] - [facility] Palliative Care Services [address] [place] [address] Chichi Woods MD [address] [place] [address] [phone] 04/24/2024 9:00 EST Appointment [facility] Radiology CT Outpatient - [address] 420861 04/24/2024 11:00 EST Appointment [facility] Breast Imaging - [address] 906161 04/27/2024 12:00 EST Appointment [facility] Hematology & Oncology - [address] [phone] 05/02/2024 15:00 EST Telemedicine [facility] Hematology & Oncology - [address] [phone] Alisson Carreon MD 111 [facility], Level 2 [place] [phone] 05/04/2024 10:15 EST Ancillary Procedure [facility] Cardiology - [address] [place] [address] 05/04/2024 11:30 EST Appointment [facility] Hematology & Oncology - [address] 885111 05/04/2024 12:00 EST Appointment [facility] Hematology & Oncology - [address] [phone] 06/12/2024 13:00 EST Appointment [facility] Radiology CT - [address] 639191 documented as of this encounter Procedures Procedure Name Priority Date/Time Associated Diagnosis Comments ORDERS - SCANNED 05/23/2013 7:57 EST documented in this encounter Results * ORDERS - SCANNED (05/23/2013 7:57 EST) 05/23/2013 7:57 EST Scan 2 [employer] ADMISSION ORDERABLE S documented in this encounter Visit Diagnoses Diagnosis Plantar fasciitis of left foot- Primary Plantar fascial fibromatosis documented in this encounter Care Teams Chart Changer Relationship Specialty Start Date End Date Ramses Blancas MD [facility] [address] [place] [address] PCP - General 01/06/11 documented as of this encounter
--- OUTSIDE RECORDS SUMMARY | 2024-03-20 15:11 | XMS_ITS | Encounter Summary ---
Author Organization [facility] Address [address] [place] [address] Care Team Providers Care Overhead Distribution Engineer Name Role Phone Linda Blancas MD Primary Care Provider [phone] Reason for Visit * Reason Comments Other Encounter Details Date Type Department Care Team (Late st Contact Info) Description 07/19/2012 Refill [facility] OBGYN Services - [address] [address] Quita Babb PA-C 111 [facility], Level 2 [place] [phone] Other Social History Tobacco Use Types Packs/Day [...] mg XR capsule TAKE 1 CAPSULE DAILY 90 Cap 2 07/19/2012 08/16/2012 documented in this encounter Miscellaneous Notes * Telephone Encounter - Carmel Decker RN - 07/19/2012 0942 EST Medication Refill Request Surescript Request Medication/Dose/Route/Frequency: Venlafaxine SR 150 mg (Last refilled 06/21/11 #90/3 ref) Pt completely out: ? Last office visit: YRL 12/08/11 Pending visit: none Pharmacy confirmed: yes Amount filled/# of refills: please advise documented in this encounter Plan of Treatment Upcoming Encounters Date Type Department Care Team (Late st Contact Info) Description 04/02/2024 10:30 EDT Appointment [facility] Interventional Radiology Unit [address] [place] [address] [phone] 04/02/2024 15:15 EDT Office Visit [facility] Surgical Oncology - [address] [phone] Adolfo Carreno MD [address] [place] [address], [facility] 2 [place] [phone] 04/05/2024 9:30 EDT Telemedicine [facility] - [facility] Palliative Care Services [address] [place] [address] [phone] Chichi Woods MD [address] [place] [address] [phone] 04/11/2024 15:00 EDT Telemedicine [facility] Hematology & Oncology - [address] [phone] Alisson Carreon MD [address] [place] [address], [facility] 2 [place] [phone] 04/13/2024 13:30 EDT Appointment [facility] Hematology & Oncology [address] 347331 04/13/2024 14:00 EDT Appointment [facility] Hematology & Oncology [address] [address] 04/16/2024 10:00 EST Telemedicine [facility] - [facility] Palliative Care Services [address] [place] [address] 935691 Chichi Woods MD [address] [place] [address], [address] [phone] 04/24/2024 9:00 EST Appointment [facility] Radiology CT Outpatient - [address] 355491 04/24/2024 11:00 EST Appointment [facility] Breast Imaging - [facility] [address] 510701 04/27/2024 12:00 EST Appointment [facility] Hematology & Oncology [address] [id number] 05/02/2024 15:00 EST Telemedicine [facility] Hematology & Oncology [address] [phone] Alisson Carreon MD [address] [place] [address], Level 2 [place] [phone] 05/04/2024 10:15 EST Ancillary Procedure [facility] Cardiology - [place] [address] 05/04/2024 11:30 EST Appointment [facility] Hematology & Oncology [address] 546991 05/04/2024 12:00 EST Appointment [facility] Hematology & Oncology [address] 046857 [phone] 06/12/2024 13:00 [facility] Appointment [facility] Radiology CT - [facility] [employer] [address] [place], [place] 678351 documented as of this encounter Visit Diagnoses Not on filedocumented in this encounter Discontinued Medications Medication Sig Discontinue Reason Start Date End Da te venlafaxine (EFFEXOR-XR) 150 mg XR capsule Take 1 Cap by mouth daily. Reorder 06/21/2011 07/19/2012 documented as of this encounter Care Teams Overhead Distribution Engineer Relationship Specialty Start Date End Date Linda Blancas MD [address] [place] [address] PCP - General 01/06/11 documented as of this encounter
--- OUTSIDE RECORDS SUMMARY | 2024-03-20 15:11 | XMS_ITS | Encounter Summary ---
Author Organization [facility] Address [address] [place] [address] Care Team Providers Care Head Of Precision Targeting Name Role Phone Ramses Blancas MD Primary Care Provider [phone] Reason for Visit * Reason Comments Follow-up Left foot pain: F/U EMG Encounter Details Date Type Department Care Team (Late st Contact Info) Description 07/11/2013 9:00 EST Office Visit [facility] Foot & Ankle Program - [address] [address] Kristin Barber NP [address] [place] [address] Plantar fasciitis of left foot (Primary Dx); Hallux rigidus of right foot Discharge Disposition: Auto Discharge Social History Tobacco [...] encounter Discharge Diagnoses Diagnosis 728.71 PLANTAR FIBROMATOSIS[ICD-9-CM] 735.2 HALLUX RIGIDUS[ICD-9-CM] documented in this encounter Discharge Disposition Disposition Code Departure Means Destination Auto Discharge documented in this encounter Progress Notes * Kristin Barber, PRECISION LENS GRINDER - 07/11/2013 0955 EST Diagnosis: 1. Plantar fasciitis of left foot (728.71) GENERIC DME ORDER 2. Hallux rigidus of right foot (735.2) GENERIC DME ORDER Sunshine Pleitez is being seen today for Follow-up . She was originally sent as a consultation from Dr. Blancas SUBJECTIVE: Sunshine Pleitez is a 52 y.o. female patient who returns for follow up for left heel pain ongoing for close to 2 years without injury or increase in physical activity. She has tried physical therapy and a walking boot with no decrease in her symptoms.. She was sent for an EMG which was done this morning by Dr. Ab Lucia MD, and brings a report of a normal study. She states that Dr. Lucia recommended an injection of the plantar fascia and custom orthotics. She requests a new prescription for orthotics because she has a new insurance that will not take the prescription I wrote for her in March 2013. Pain Vitals: Pain Location: Foot Wesley-Barrios Pain Rating (Scale 0-10): Hurts a little bit Numeric Pain Level (Scale 1-10): 2 Pain Quality: Dull Pain Duration: Intermittent Outpatient Prescriptions Prior to [...] of the left foot/ankle: Neurology: sensation intact Vascular: pedal pulses palpable Musculoskeletal: ROM good Skin: intact Tenderness: severe on heel insertion of the plantar fascia Swelling: none Ecchymosis: absent X-rays today: none. ASSESSMENT: 1. Plantar fasciitis of left foot (728.71) GENERIC DME ORDER 2. Hallux rigidus of right foot (735.2) GENERIC DME ORDER PLAN: The patient has chronic left heel pain that did not respond to conservative treatment. The last option is a short-leg walking cast which she declines. She requests a referral with one of the surgeonsfor an injection. Plan includes: -Immobilization: short-leg walking cast - patient declines -Activity: Activity as tolerated -Follow up: Return for consult with one of the foot surgeons. Symptoms for which to seek care were reviewed. All the questions were answered. Patient voices understanding and agrees with the plan. Dr. Sandhya David MD, was on site and available for questions during this visit. Cc: Referring Provider - Dr. Blancas PCP - RAMSES BLANCAS MD documented in this encounter Plan of Treatment Upcoming Encounters Date Type Department Care Team (Late st Contact Info) Description 04/02/2024 10:30 EDT Appointment [facility] Interventional Radiology Unit [address] [place] [address] [phone] 04/02/2024 15:15 EDT Office Visit [facility] Surgical Oncology - [address] [phone] Adolfo Carreno MD [address] [place] [address] 2 [place] [phone] 04/05/2024 9:30 EDT Telemedicine [facility] Palliative Care Services [address] [place] [address] [phone] Chichi Woods MD [address] [place] [address] [phone] 04/11/2024 15:00 EDT Telemedicine [facility] Hematology & Oncology - [address] [phone] Alisson Carreon MD [address] [place] [address] 2 [place] [phone] 04/13/2024 13:30 EDT Appointment [facility] Hematology & Oncology - [address] [phone] 04/13/2024 14:00 EDT Appointment [facility] Hematology & Oncology - [address] [phone] 04/16/2024 10:00 EST Telemedicine [facility] - [facility] Palliative Care Services [address] [place] [address] 155281 Chichi Woods MD [address] [place] [address] [phone] 04/24/2024 9:00 EST Appointment [facility] Radiology CT Outpatient - [address] [phone] 04/24/2024 11:00 EST Appointment [facility] Breast Imaging - [address] 869281 04/27/2024 12:00 EST Appointment [facility] Hematology & Oncology [address] [address] 05/02/2024 15:00 EST Telemedicine [facility] Hematology & Oncology [address] [address] Alisson Carreon MD [address] [place] [address], Level [address] [place] [phone] 05/04/2024 10:15 EST Ancillary Procedure [facility] Cardiology - [address] [address] 05/04/2024 11:30 EST Appointment [facility] Hematology & Oncology [address] [address] 05/04/2024 12:00 EST Appointment [facility] Hematology & Oncology [address] [address] 06/12/2024 13:00 EST Appointment [facility] Radiology CT - [address] 185341 documented as of this encounter Visit Diagnoses Diagnosis Plantar fasciitis of left foot- Primary Plantar fascial fibromatosis Hallux rigidus of right foot Hallux rigidus documented in this encounter Orders Equipment Count Last Ordered Date First Orde red Date GENERIC DME ORDER 1 07/11/2013 documented in this encounter Care Teams Head Of Precision Targeting Relationship Specialty Start Date End Date Ramses Blancas MD [address] [place] [address] [address] [place] [address] PCP - General 01/06/11 documented as of this encounter
--- OUTSIDE RECORDS SUMMARY | 2024-03-20 15:11 | XMS_ITS | Encounter Summary ---
Author Organization [facility] Address [address] [place] [address] Care Team Providers Care Waist Presser Name Role Phone Linda Blancas MD Primary Care Provider [phone] Reason for Referral * Radiology Services (Routine/Next Available) - Closed Specialty Diagnoses / Procedures Referred By Contac t Referred To Contact Diagnoses Acquired spondylolisthesis Procedures L SPINE 2-3 VIEWS Tylor Hanley MD [address] [place] [phone] Referral ID Status Reason Start Date Expiration Date Visits Re quested Visits Authorized [id number] Closed 05/29/2012 1 1 Reason for Visit * Reason Onset Date Comments Back Pain 05/29/2012 Encounter Details Date Type Department Care Team (Late st Contact Info) Description 05/29/2012 Orders Only [facility] - [facility] [place] [address] Tylor Hanley MD [address] [place] [phone] Acquired spondylolisthesis (Primary Dx) Social History [...] EDT Appointment [facility] [address] [place] [address] [phone] 04/02/2024 15:15 EDT Office Visit [facility] Surgical Oncology - [address] [phone] Adolfo Carreno MD [address] [place] [address] 2 [place] [phone] 04/05/2024 9:30 EDT Telemedicine [facility] [address] [place] [address] [phone] Chichi Woods MD [address] [place] [phone] 04/11/2024 15:[address] [facility] Hematology & Oncology [address] 495261 Alisson Carreon MD [address] [place] [phone] 04/13/2024 13:[address] [facility] Hematology & Oncology [address] 567151 04/13/2024 14:[address] [facility] Hematology & Oncology - [address] 070221 04/16/2024 10:00 EST Telemedicine [facility] [address] [place] [address] [phone] Chichi Woods MD 111 [facility], [address] [phone] 04/24/2024 9:00 EST Appointment [facility] Radiology CT Outpatient - [address] 557011 04/24/2024 11:00 EST Appointment [facility] - [facility] [address] [place], [place] [phone] 04/27/2024 12:[address] [facility] Hematology & Oncology - [address] [phone] 05/02/2024 15:[address] [facility] Hematology & Oncology - [address] [phone] Alisson Carreon MD [address] [place] [address], Level 2 [place] [phone] 05/04/2024 10:15 EST Ancillary Procedure [facility] Cardiology - [place] [address] 05/04/2024 11:[address] [facility] Hematology & Oncology - [address] [phone] 05/04/2024 12:[address] [facility] Hematology & Oncology [address] 275371 06/12/2024 13:00 EST Appointment [facility] Radiology CT - [address] [phone] documented as of this encounter Procedures Procedure Name Priority Date/Time Associated Diagnosis Comments L SPINE 2-3 VIEWS Routine 05/30/2012 11: 38 EST Acquired spondylolisthesis documented in this encounter Results * L SPINE 2-3 VIEWS (05/30/2012 11:38 EST) Anatomical Region Laterality Modality Other 05/30/2012 11:3 8 EST 05/30/2012 17:06 EST Narrative 05/30/2012 17:06 EST L SPINE 2-3 VIEWS ??May 30, 2012 11:38:00 AM Signs and Symptoms/Comments: ??738.4-Acquired emcpgbhxfhprlhukw-ZUW-8-CM; Low back pain, status post L3-S1 fusion . ?? Compare examination March 02 T1 Findings pedicle screws are again seen at L3, L4, L5 and S1 with posterior fixation extending from L3 to S1. Interbody bone grafts at L3-L4, L4-L5 and L5-S1 are stable and appear slightly more incorporated than on the previous examination. There is stable grade 1 anterolisthesis at L3-L4 and L4-L5. Calcification in the right side of the pelvis is consistent with a calcified fibroid. Procedure Note 05/30/2012 L SPINE 2-3 VIEWS May 30, 2012 11:38:00 AM Signs and Symptoms/Comments: 738.4-Acquired sjuyrkjsdqdyqootm-SFL-4-CM; Low back pain, status post L3-S1 fusion . Compare examination March 02 T12 Findings pedicle screws are again seen at L3, L4, L5 and S1 with posterior fixation extending from L3 to S1. Interbody bone grafts at L3-L4, L4-L5 and L5-S1 are stable and appear slightly more incorporated than on the previous examination. There is stable grade 1 anterolisthesis at L3-L4 and L4-L5. Calcification in the right side of the pelvis is consistent with a calcified fibroid. Tylor Hanley MD IMG DIAGNOSTIC I MAGING ORDERABLES documented in this encounter Visit Diagnoses Diagnosis Acquired spondylolisthesis- Primary documented in this encounter Care Teams Waist Presser Relationship Specialty Start Date End Date Linda Blancas MD [address] [place] [address] 30 [place] [address] PCP - General 01/06/11 documented as of this encounter
--- OUTSIDE RECORDS SUMMARY | 2024-03-20 15:11 | XMS_ITS | Encounter Summary ---
Author Organization [facility] Address [address] [place] [address] Care Team Providers Care Fur Mixer Name Role Phone Linda Blancas MD Primary Care Provider [phone] Encounter Details Date Type Department Care Team (Late st Contact Info) Description 05/30/2012 10:28 EST - 05/30/2012 23:59 [facility] Hospital Encounter [facility] [place] [facility] - [address] [place] [address] Tylor Hanley MD [address] [place] [phone] Discharge Disposition: Home or Self Care Social [...] by mouth daily. 600mg 2x a day acetaminophen (TYLENOL) 500 mg tablet Take 1,000 mg by mouth every 6 hours as needed. 12/08/2012 DOXYLAMINE SUCCINATE (UNISOM ORAL) Take by mouth as needed. Takes half a tablet 02/02/2011 01/13/2022 gabapentin (NEURONTIN) 100 mg capsule Take 2 Caps by mouth 2 times daily before breakfast and lunch. 360 Cap 3 12/08/2011 08/16/2012 gabapentin (NEURONTIN) 300 mg capsule Take 2 Caps by mouth at bedtime. 180 Cap 3 12/08/2011 08/16/2012 ibuprofen (MOTRIN) 200 mg tablet Take 200-400 mg by mouth as needed. 08/30/2018 valACYclovir (VALTREX) 500 mg tablet TAKE 1 TABLET DAILY 90 Tab 2 05/29/2012 08/16/2012 venlafaxine (EFFEXOR-XR) 150 mg XR capsule Take 1 Cap by mouth daily. 90 Cap 3 06/21/2011 07/19/2012 documented as of this encounter Discharge Disposition Disposition Code Departure Means Destination Home or Self Skilled Nursing documented in this encounter Plan of Treatment Upcoming Encounters Date Type Department Care Team (Late st Contact Info) Description 04/02/2024 10:30 EDT Appointment [facility] [place] [facility] Interventional Radiology Unit [address] [place], [place] 600231 04/02/2024 15:15 EDT Office Visit [facility] [place] [facility] Surgical Oncology - [facility] [address] [place], [place] [phone] Adolfo Carreno MD 111 [facility], Level 2 [place] [phone] 04/05/2024 9:30 EDT Telemedicine [facility] Palliative Care Services [address] [place], [place] [phone] Chichi Woods MD 111 [facility], [address] [phone] 04/11/2024 15:00 EDT Telemedicine [facility] Hematology & Oncology - [address] 100481 Alisson Carreon MD [address] [place] [address] 2 [place] [phone] 04/13/2024 13:30 EDT Appointment [facility] Hematology & Oncology - [address] [phone] 04/13/2024 14:00 EDT Appointment [facility] Hematology & Oncology - [address] 279201 04/16/2024 10:00 EST Telemedicine [facility] [place] [facility] Palliative Care Services [address] [place] [address] [phone] Chichi Woods MD [address] [place] [phone] 04/24/2024 9:00 EST Appointment [facility] Radiology CT Outpatient - [address] [id number] 04/24/2024 11:00 EST Appointment [facility] [place] [facility] Breast Imaging - [address] 976011 04/27/2024 12:00 EST Appointment [facility] Hematology & Oncology - [address] [phone] 05/02/2024 15:00 EST Telemedicine [facility] Hematology & Oncology - [address] [phone] Alisson Carreon MD [address] [place] [address], [facility] 2 [place] [phone] 05/04/2024 10:15 EST Ancillary Procedure [facility] [place] [facility] Cardiology [place] [address] 05/04/2024 11:30 EST Appointment [facility] Hematology & Oncology [address] [address] 05/04/2024 12:00 EST Appointment [facility] Hematology & Oncology [address] [address] 06/12/2024 13:00 EST Appointment [facility] Radiology CT - [address] [phone] documented as of this encounter Visit Diagnoses Not on filedocumented in this encounter Care Teams Fur Mixer Relationship Specialty Start Date End Date Linda Blancas MD [facility] [address] [place] [address] PCP - General 01/06/11 documented as of this encounter
--- OUTSIDE RECORDS SUMMARY | 2024-03-20 15:11 | XMS_ITS | Encounter Summary ---
Author Organization [facility] Address [address] [place] [address] Care Team Providers Care Rn Delivery Name Role Phone Linda Blancas MD Primary Care Provider Reason for Visit * Reason Comments Cast Problem cast is loose, broke n at lateral side, and is pinching little toe. Encounter Details Date Type Department Care Team (Late st Contact Info) Description 08/21/2013 13:45 EDT Office Visit [facility] Foot & Ankle Program - [address] [place] [address] Kristin Barber NP [address] [place] [phone] Plantar fascial fibromatosis (Primary Dx) Discharge Disposition: Auto Discharge Social [...] 728.71 PLANTAR FIBROMATOSIS[ICD-9-CM] documented in this encounter Patient Instructions * Patient Instructions* Hansa Gee - 08/21/2013 14:18 EDT Images from the original note were not included. [facility] Patient Instructions Cast or Splint Care: After Your Visit Your Care Instructions Your doctor has applied a cast or splint to protect a broken bone or other injury. Follow your doctor's instructions on when you can first put weight or pressure on your limb. Fiberglass casts and splints dry quickly, but plaster casts or splints may take a few days to dry completely. Do not put any weight on a plaster cast or splint for the first 48 hours. After that, do not stand or walk on it unless it is designed for walking. Follow-up care is a knight part of your treatment and safety. Be sure to make and go to all appointments, and call your doctor if you are having problems. It???s also a good idea to know your test results and keep a list of the medicines you take. How can you care for yourself at home? ?? Prop up the injured arm or leg on a pillow when you ice it or anytime you sit or lie down duringthe next 3 days. Try to keep it above the level of your heart. This will help reduce swelling. ?? Put ice or cold packs on the hurt area for 10 to 20 minutes at a time. Try to do this every 1 to2 hours for the next 3 days (when you are awake) or until the swelling goes down. Be careful not toget the cast or splint wet. ?? Take pain medicines exactly as directed. ?? If the doctor gave you a prescription medicine for pain, take it as prescribed. ?? If you are not taking a prescription pain medicine, ask your doctor if you can take an rmgc-azd-rcpfdtb medicine. ?? If you have a cast or splint on your arm, wiggle your uninjured fingers as much as possible. If you have a cast or splint on your leg or foot, wiggle your toes. ?? Keep your cast or splint as dry as possible. Cover it with at least two layers of plastic when you bathe. Water can collect under the cast or splint and cause skin soreness and itching. If you have a wound or have had surgery, water can increase the risk of infection. ?? If you have a fiberglass cast or splint with a fast-drying lining, make sure to rinse it with fresh water after you swim. It will take about an hour for the lining to dry. ?? Blowing cool air from a hairpiece stylist or fan into the cast or splint may help relieve itching. Never stick items under your cast or splint to scratch the skin. ?? Do not use oils or lotions near your cast or splint. If the skin becomes red or sore around the edge of the cast or splint, you may pad the edges with a soft material, such as moleskin, or use tape to cover them. ?? Never cut or alter your cast or splint. ?? Do not use powder on the skin under the cast or splint. ?? Keep dirt or sand from getting into the cast or splint. When should you call for help? Call your doctor now or seek immediate medical care if: ?? You have increased or severe pain. ?? Your foot or hand is cool or pale or changes color. ?? You have tingling, weakness, or numbness in your hand or foot. ?? Your cast or splint feels too tight. ?? You have signs of a blood clot, such as: ?? Pain in your calf, back of the knee, thigh, or groin. ?? Redness and swelling in your leg or groin. ?? You have a fever, drainage, or a bad smell coming from the cast or splint. Watch closely for changes in your health, and be sure to contact your doctor if: ?? The skin under your cast or splint hansen or stings. Where can you learn more? Go to www.Someecards.net/fahc Enter T765 in the search box to learn more about Cast or Splint Care: After Your Visit. ?? [id number] [employer]. Care instructions adapted under license by [facility], [facility]. This care instruction is for use with your licensed healthcare professional. If you have questions about a medical condition or this instruction, always ask your healthcare professional. [employer] disclaims any warranty or liability for your use of this information. Content Version: 9.7.935972; Last Revised: September 07, 2010 documented in this encounter Discharge Disposition Disposition Code Departure Means Destination Auto Discharge documented in this encounter Progress Notes * Hansa Gee - 08/21/2013 1416 EDT Patient called with complaint/concern of cast having gotten wet, cracked at toes, and pinching. Cast was removed and another short leg walking fiberglass cast was applied with webril padding to the left leg. Kristin Barber NP was immediately available during the entire time the service was being provided. Skin was in good condition. Additional Comments: Patient's washed her leg and then a new cast was applied. Patient to follow up as previously dictated in the last office note. Materials Used: 5 rolls of 3 inch fiberglass Patient Education Topic: Cast Care and Application Method: Handout and Verbal Taught to: Family and Patient Barriers: None Outcomes: independent and verbalized understanding Hansa Gee documented in this encounter Plan of Treatment Upcoming Encounters Date Type Department Care Team (Late st Contact Info) Description 04/02/2024 10:30 EDT Appointment [facility] Interventional Radiology Unit [address] [place] [address] [phone] 04/02/2024 15:15 EDT Office Visit [facility] Surgical Oncology - [address] [phone] Adolfo Carreno MD 111 [facility], Level [address] [place] [phone] 04/05/2024 9:[address] [facility] - [facility] Palliative Care Services [address] [place], [place] [phone] Chichi Woods MD [address] [phone] 04/11/2024 15:00 EDT Telemedicine [facility] Hematology & Oncology - [address] 315011 Alisson Carreon MD [address] [place] [address], [facility] 2 [place] [phone] 04/13/2024 13:30 EDT Appointment [facility] Hematology & Oncology - [address] [phone] 04/13/2024 14:00 EDT Appointment [facility] Hematology & Oncology - [address] [phone] 04/16/2024 10:[address] [facility] - [facility] Palliative Care Services [address] [place] [address] [phone] Chichi Woods MD [address] [place] [address], [address] [phone] 04/24/2024 9:00 EST Appointment [facility] Radiology CT Outpatient - [address] [id number] 04/24/2024 11:00 EST Appointment [facility] Breast Imaging - [facility] [address] 801951 04/27/2024 12:00 EST Appointment [facility] Hematology & Oncology - [address] [phone] 05/02/2024 15:00 EST Telemedicine [facility] Hematology & Oncology - [address] 128031 Alisson Carreon MD [address] [place] [address], [facility] 2 [place] [phone] 05/04/2024 10:15 EST Ancillary Procedure [facility] Cardiology - [place] [address] 05/04/2024 11:30 EST Appointment [facility] Hematology & Oncology [address] [phone] 05/04/2024 12:00 EST Appointment [facility] Hematology & Oncology [address] [phone] 06/12/2024 13:00 EST Appointment [facility] Radiology CT - [address] [phone] documented as of this encounter Visit Diagnoses Diagnosis Plantar fascial fibromatosis- Primary documented in this encounter Care Teams Rn Delivery Relationship Specialty Start Date End Date Linda Blancas MD [facility] [address] [place] [address] PCP - General 01/06/11 documented as of this encounter
--- OUTSIDE RECORDS SUMMARY | 2024-03-20 15:11 | XMS_ITS | Encounter Summary ---
Author Organization [facility] Address [address] [place] [address] Care Team Providers Care Die Drawing Checker Name Role Phone Linda Blancas MD Primary Care Provider [phone] Reason for Visit * Reason Comments Follow-up Encounter Details Date Type Department Care Team (Late st Contact Info) Description 02/28/2013 13:00 EDT Office Visit [facility] Surgical Oncology - [address] [address] Pavan Schaffer MD 111 [facility], Level 2 [place] [phone] Personal history of malignant neoplasm of breast [...] as of this encounter Progress Notes * Pavan Schaffer MD - 03/01/2013 1058 EDT DIVISION OF SURGICAL ONCOLOGY - [facility] PROGRESS / FOLLOWUP NOTE - 02/28/2013 SUBJECTIVE: She is status post January 2004 right total mastectomy for a 2.7 cm, 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 She had a positive anterior skin margin. She had no adjuvant radiationtherapy or hormone therapy. She underwent bilateral implant reconstruction with Pavan Batres. On the left, this was augmentation. She is also status post August 2011 right nipple reconstruction. Update form has been reviewed today, and she has no new concerns or problems. PAST MEDICAL HISTORY: She fell recently on a new porch in her back yard, which required stitches, and that was on 02/07/2013. Otherwise, no changes. No change in her family history. REVIEW OF SYSTEMS: Marked as negative. She specifically denies complaints referable to her breasts. OBJECTIVE: The right breast and the left breast are both approximately equal in size. The reconstruction on the right is in good position. I can appreciate no dominant masses or nipple discharge, or skin dimpling. In particular, the skin shows no evidence of ulceration, nodulation, edema or suspicious nodularity. The left breast has no dominant masses, nipple discharge, or skin dimpling and the reconstruction also is with good shape and there is no cervical or axillary lymphadenopathy. DIAGNOSTIC DATA: Also, her last mammogram was 09/12/2012, which showed no evidence of malignancy and recommended interval was in approximately September 2013. ASSESSMENT: No clinical evidence and recent mammographic evidence of recurrent or new carcinoma. PLAN: Return to clinic in 1 year. Pavan Schaffer MD 02 24 PM - Pavan Schaffer MD ln Dictation ID: [id number] * Pavan Schaffer MD - 02/28/2013 1449 EDT This office note has been dictated. documented in this encounter Miscellaneous Notes * Scanned Note-Null - MANGANESE BREAKER, SCAN 2 - 03/13/2013 1121 EDT documented in this encounter Plan of Treatment Upcoming Encounters Date Type Department Care Team (Late st Contact Info) Description 04/02/2024 10:30 EDT Appointment [facility] Interventional Radiology Unit [address] [place] [address] [phone] 04/02/2024 15:15 EDT Office Visit [facility] Surgical Oncology - [address] [phone] Adolfo Carreno MD [address] [place] [phone] 04/05/2024 9:30 EDT Telemedicine [facility] Palliative Care Services [address] [place] [address] [phone] Chichi Woods MD [address] [place] [phone] 04/11/2024 15:[address] [facility] Hematology & Oncology [address] 058821 Alisson Carreon MD [address] [place] [phone] 04/13/2024 13:[address] [facility] Hematology & Oncology [address] [phone] 04/13/2024 14:[address] [facility] Hematology & Oncology [address] [phone] 04/16/2024 10:00 EST Telemedicine [facility] Palliative Care Services [address] [place] [address] [phone] Chichi Woods MD [address] [place] [address], [place] [address] [place] [phone] 04/24/2024 9:00 EST Appointment [facility] Radiology CT Outpatient - [address] [id number] 04/24/2024 11:00 EST Appointment [facility] Breast Imaging - [facility] [place] [address] [place], [place] 711241 04/27/2024 12:[address] [facility] Hematology & Oncology - [address] 815321 05/02/2024 15:[address] [facility] Hematology & Oncology [address] [phone] Alisson Carreon MD [address] [place] [address], Level [address] [place] [phone] 05/04/2024 10:15 EST Ancillary Procedure [facility] Cardiology - [address] [place] [address] 05/04/2024 11:[address] [facility] Hematology & Oncology [address] [phone] 05/04/2024 12:[address] [facility] Hematology & Oncology - [address] 017331 06/12/2024 13:00 EST Appointment [facility] Radiology CT - [address] [phone] documented as of this encounter Visit Diagnoses Diagnosis Personal history of malignant neoplasm of breast- Primary documented in this encounter Historical Medications * This list may reflect changes made after this encounter. Medication Sig Dispensed Refills Start Date End Date omeprazole (PRILOSEC) 20 mg capsule Take 1 Capsule by mouth daily. 03/28/2023 added in this encounter Care Teams Die Drawing Checker Relationship Specialty Start Date End Date Linda Blancas MD [address] [place] [address] PCP - General 01/06/11 documented as of this encounter
--- OUTSIDE RECORDS SUMMARY | 2024-03-20 15:11 | XMS_ITS | Encounter Summary ---
Author Organization [facility] Address [address] [place] [address] Care Team Providers Care Tailer Out Name Role Phone Linda Blancas MD Primary Care Provider [phone] Encounter Details Date Type Department Care Team (Late st Contact Info) Description 02/27/2013 Results Only Imaging [facility] Surgical Oncology - [address] [id number] Pavan Schaffer MD 111 [facility], Level 2 [place] [phone] Social History Tobacco Use [facility] [address] [place], [place] 437881 04/02/2024 15:15 EDT Office Visit [facility] Surgical Oncology - [address] [id number] Adolfo Carreno MD [address] [place] [address] [phone] 04/05/2024 9:30 EDT Telemedicine [facility] Palliative Care Services [address] [place] [address] [phone] Chichi Woods MD [address] [place] [address] [phone] 04/11/2024 15:00 EDT Telemedicine [facility] Hematology & Oncology - [address] [address] Alisson Carreon MD [address] [place] [address] [phone] 04/13/2024 13:30 EDT Appointment [facility] Hematology & Oncology [address] [phone] 04/13/2024 14:00 EDT Appointment [facility] Hematology & Oncology - [address] [address] 04/16/2024 10:00 EST Telemedicine [facility] Palliative Care Services [address] [place] [address] [phone] Chichi Woods MD [address] [place] [address] [phone] 04/24/2024 9:00 EST Appointment [facility] Radiology CT Outpatient - [address] [address] 04/24/2024 11:00 EST Appointment [facility] Breast Imaging - [facility] [address] [place] [address] [place] [address] 04/27/2024 12:00 EST Appointment [facility] Hematology & Oncology - [address] [address] 05/02/2024 15:00 EST Telemedicine [facility] Hematology & Oncology [address] [address] Alisson Carreon MD [address] [place] [address], Level 2 [place] [phone] 05/04/2024 10:15 EST Ancillary Procedure [facility] Cardiology - [address] [place] [address] 05/04/2024 11:30 EST Appointment [facility] Hematology & Oncology [address] [address] 05/04/2024 12:00 EST Appointment [facility] Hematology & Oncology [address] [id number] 06/12/2024 13:00 EST Appointment [facility] Radiology CT - [address] [phone] documented as of this encounter Visit Diagnoses Not on filedocumented in this encounter Care Teams Tailer Out Relationship Specialty Start Date End Date Linda Blancas MD [facility] [address] [place] [address] PCP - General 01/06/11 documented as of this encounter
--- OUTSIDE RECORDS SUMMARY | 2024-03-20 15:11 | XMS_ITS | Encounter Summary ---
Author Organization [facility] Address [address] [place] [address] Care Team Providers Care Licensed Vocational Nurse Name Role Phone Linda Blancas MD Primary Care Provider [phone] Encounter Details Date Type Department Care Team (Late st Contact Info) Description 03/07/2012 13:45 EDT - 03/07/2012 23:59 EDT Hospital Encounter [address] [place] [address] Tylor Hanley MD [address] [place] [phone] Discharge Disposition: Home or Self Care [...] at bedtime. 180 Cap 3 12/08/2011 08/16/2012 valACYclovir (VALTREX) 500 mg tablet Take 1 Tab by mouth daily. 90 Tab 3 06/21/2011 05/29/2012 venlafaxine (EFFEXOR-XR) 150 mg XR capsule Take 1 Cap by mouth daily. 90 Cap 3 06/21/2011 07/19/2012 documented as of this encounter Discharge Disposition Disposition Code Departure Means Destination Home or Self [facility] documented in this encounter Plan of Treatment Upcoming Encounters Date Type Department Care Team (Late st Contact Info) Description 04/02/2024 10:30 EDT Appointment [facility] Interventional Radiology Unit [address] [place] [address] [id number] 04/02/2024 15:15 EDT Office Visit [facility] Surgical Oncology - [facility] [address] [place], [place] [phone] Adolfo Carreno MD 111 [facility], Level [address] [place] [phone] 04/05/2024 9:30 EDT Telemedicine [facility] Palliative Care Services [address] [place], [place] [phone] Chichi Woods MD 111 [facility], [address] [phone] 04/11/2024 15:00 EDT Telemedicine [facility] Hematology & Oncology - [address] [phone] Alisson Carreon MD [address] [place] [address] 2 [place] [phone] 04/13/2024 13:30 EDT Appointment [facility] Hematology & Oncology - [address] 170551 04/13/2024 14:00 EDT Appointment [facility] Hematology & Oncology [address] 176871 04/16/2024 10:[address] [facility] - [facility]iative Care Services [address] [place] [address] Chichi Woods MD [address] [place] [address] [phone] 04/24/2024 9:00 EST Appointment [facility] Radiology CT Outpatient - [address] [id number] 04/24/2024 11:00 EST Appointment [facility] Breast Imaging - [address] 781941 04/27/2024 12:00 EST Appointment [facility] Hematology & Oncology - [address] 900741 05/02/2024 15:00 EST Telemedicine [facility] Hematology & Oncology [address] [phone] Alisson Carreon MD [address] [place] [address], [facility] 2 [place] [phone] 05/04/2024 10:15 EST Ancillary Procedure [facility] Cardiology - [address] [place] [address] 05/04/2024 11:30 EST Appointment [facility] Hematology & Oncology [address] [phone] 05/04/2024 12:00 EST Appointment [facility] Hematology & Oncology [address] 454341 06/12/2024 13:00 EST Appointment [facility] Radiology CT - [address] [phone] documented as of this encounter Visit Diagnoses Not on filedocumented in this encounter Care Teams Licensed Vocational Nurse Relationship Specialty Start Date End Date Linda Blancas MD [facility] [address] [place] [address] PCP - General 01/06/11 documented as of this encounter
--- OUTSIDE RECORDS SUMMARY | 2024-03-20 15:12 | XMS_ITS | Encounter Summary ---
Author Organization [facility] Address [address] [place] [address] Care Team Providers Care Shag Truck Driver Name Role Phone Linda Blancas MD Primary Care Provider [phone] Reason for Visit * Reason Onset Date Comments Nausea 01/14/2012 Encounter Details Date Type Department Care Team (Late st Contact Info) Description 01/14/2012 Telephone [facility] Spine Program [place] [address] Noemy Hurley LPN [address] [place] [address] Nausea Social History Tobacco Use Types Packs/Day Years [...] encounter Miscellaneous Notes * Telephone Encounter - Noemy Hurley, LARISSA - 01/14/2012 0951 EDT Pt calls to report she is having episodes of nausea, and dizziness following walking 30-45 min 2 times daily. Pt reports no fever/chills, and back wound is healing well. Pt states she is taking oxycodone 10 mg every 6 hours, and pain is under good control. Discussed with pt the possibility that shemay be pushing herself too much. Pt instructed to decrease walks to 15 min 3-4 times daily, and drink plenty of fluids before and after walks. Dr Hanley has been updated. Pt instructed to call on Tuesday with update. Noemy Hurley LPN documented in this encounter Plan of Treatment Upcoming Encounters Date Type Department Care Team (Late st Contact Info) Description 04/02/2024 10:30 EDT Appointment [facility] Interventional Radiology Unit [address] [place] [address] [phone] 04/02/2024 15:15 EDT Office Visit [facility] Surgical Oncology - [address] [phone] Adolfo Carreno MD [address] [place] [address] 2 [place] [phone] 04/05/2024 9:30 EDT Telemedicine [facility] - [facility] Palliative Care Services [address] [place] [address] [phone] Chichi Woods MD [address] [place] [address] [phone] 04/11/2024 15:00 EDT Telemedicine [facility] Hematology & Oncology - [address] [phone] Alisson Carreon MD [address] [place] [address] [phone] 04/13/2024 13:30 EDT Appointment [facility] Hematology & Oncology - [address] [phone] 04/13/2024 14:00 EDT Appointment [facility] Hematology & Oncology - [address] [address] 04/16/2024 10:00 EST Telemedicine [facility] - [facility] Palliative Care Services [address] [place] [address] Chichi Woods MD [address] [place] [address], [address] [phone] 04/24/2024 9:00 EST Appointment [facility] Radiology CT Outpatient - [address] [address] 04/24/2024 11:00 EST Appointment [facility] Breast Imaging - [facility] [address] [place] [address] [place], [place] 726611 04/27/2024 12:00 EST Appointment [facility] Hematology & Oncology - [address] [phone] 05/02/2024 15:00 EST Telemedicine [facility] Hematology & Oncology - [address] [address] Alisson Carreon MD [address] [place] [address], Level [address] [place] [phone] 05/04/2024 10:15 EST Ancillary Procedure [facility] Cardiology [place] [address] [place] [address] 05/04/2024 11:30 EST Appointment [facility] Hematology & Oncology - [address] [address] 05/04/2024 12:00 EST Appointment [facility] Hematology & Oncology - [address] 163901 06/12/2024 13:00 [facility] Rad[facility] - [address] [address] documented as of this encounter Visit Diagnoses Not on filedocumented in this encounter Care Teams Shag Truck Driver Relationship Specialty Start Date End Date Linda Blancas MD [address] [place] [address] 30 [place] [address] PCP - General 01/06/11 documented as of this encounter
--- OUTSIDE RECORDS SUMMARY | 2024-03-20 15:12 | XMS_ITS | Encounter Summary ---
Author Organization [facility] Address [address] [place] [address] Care Team Providers Care Hot Mix Operator Name Role Phone Linda Blancas MD Primary Care Provider [phone] Reason for Visit * Reason Onset Date Comments Appointment Related 12/09/2011 Encounter Details Date Type Department Care Team (Late st Contact Info) Description 12/09/2011 Telephone [facility] Spine Program [place] [place] [address] Anusha Norwood, RN [address] [place] [address] Appointment Related Social History Tobacco Use Types Packs/Day Years Used Date Smoking Tobacco: Never Alcohol Use Standard Drinks/Week Comments Yes 2.5 (1 standard drink = 0.6 oz p ure alcohol) Sex and Gender Information Value Date Recorded Sex Assigned at Female 05/17/2019 15:31 EST Gender Identity Female 04/26/2019 13:08 EST Sexual Orientation Bisexual 08/26/2022 10 :47 EDT documented as of this encounter Miscellaneous Notes * Telephone Encounter - Anusha Norwood RN - 12/09/2011 1042 EDT Pt notified to arrive at the hospital at 7:15 am on 12/13/11 for surgery. Reminded pt to have nothingto eat or drink after midnight. Pt is currently washing with the soap daily and the morning of surgery. She is also using Bactroban twice a day. Anusha Norwood, SHELLEY documented in this encounter Plan of Treatment Upcoming Encounters Date Type Department Care Team (Late st Contact Info) Description 04/02/2024 10:30 EDT Appointment [facility] Interventional Radiology Unit [address] [place] [address] [phone] 04/02/2024 15:15 EDT Office Visit [facility] Surgical Oncology - [address] 564951 Adolfo Carreno MD [address] [place] [address] [phone] 04/05/2024 9:30 EDT Telemedicine [facility] Palliative Care Services [address] [place] [address] [phone] Chichi Woods MD [address] [place] [address] [phone] 04/11/2024 15:00 EDT Telemedicine [facility] Hematology & Oncology - [address] [phone] Alisson Carreon MD [address] [place] [address] [phone] 04/13/2024 13:30 EDT Appointment [facility] Hematology & Oncology - [address] [phone] 04/13/2024 14:00 EDT Appointment [facility] Hematology & Oncology [address] 846181 04/16/2024 10:00 EST Telemedicine [facility] Palliative Care Services [address] [place] [address] [phone] Chichi Woods MD [address] [place] [address] [phone] 04/24/2024 9:00 EST Appointment [facility] Radiology CT Outpatient - [address] [phone] 04/24/2024 11:00 EST Appointment [facility] Breast Imaging - [facility] S [place] 1 [place], [place] 522511 04/27/2024 12:00 EST Appointment [facility] Hematology & Oncology - [address] [phone] 05/02/2024 15:00 EST Telemedicine [facility] Hematology & Oncology [address] 091831 Alisson Carreon MD [address] [place] [address], Level 2 [place] [phone] 05/04/2024 10:15 EST Ancillary Procedure [facility] Cardiology - [place] [address] 05/04/2024 11:30 EST Appointment [facility] Hematology & Oncology - [address] [address] 05/04/2024 12:00 EST Appointment [facility] Hematology & Oncology - [address] [phone] 06/12/2024 13:00 EST Appointment [facility] Radiology CT - [address] 714141 documented as of this encounter Visit Diagnoses Not on filedocumented in this encounter Care Teams Hot Mix Operator Relationship Specialty Start Date End Date Linda Blancas MD [facility] [address] [place] [address] PCP - General 01/06/11 documented as of this encounter
--- OUTSIDE RECORDS SUMMARY | 2024-03-20 15:12 | XMS_ITS | Encounter Summary ---
Author Organization [facility] Address [address] [place] [address] Care Team Providers Care Marine Firer Name Role Phone Linda Blancas MD Primary Care Provider [phone] Reason for Visit * Reason Comments Gynecologic Exam would like refill at [facility] for gabapentin- daily dose w/ possible dose roxanne Encounter Details Date Type Department Care Team (Late st Contact Info) Description 12/08/2011 10:00 EDT Office Visit [facility] OBGYN Services - [address] [address] Quita Babb PA-C [address] [place] [address], [facility] [address] [place] [address] Routine gynecological examination (Primary Dx) Discharge Disposition: Auto Discharge Social [...] Sign Reading Time Taken Comments Blood Pressure 130/82 12/08/2011 1001 EDT Pulse - - Temperature - - Respiratory Rate - - Oxygen Saturation - - Inhaled Oxygen Concentration - - Weight 69.9 kg (154 lb) 12/08/2011 1001 EDT Height - - Body Mass Index 29.1 12/03/2011 1513 EDT documented in this encounter Ordered Prescriptions Prescription Sig Dispensed Refills Start Date End Da te gabapentin (NEURONTIN) 100 mg capsule Take 2 Caps by mouth 2 times daily before breakfast and lunch. 360 Cap 3 12/08/2011 08/16/2012 gabapentin (NEURONTIN) 300 mg capsule Take 2 Caps by mouth at bedtime. 180 Cap 3 12/08/2011 08/16/2012 documented in this encounter Discharge Disposition Disposition Code Departure Means Destination Auto Discharge documented in this encounter Progress Notes * Quita Babb, TANK - 12/08/2011 1224 EDT Subjective: Patient ID: Sunshine Pleitez is an 51 y.o. female. Chief Complaint Patient presents with ??? Gynecologic Exam would like refill at [facility] for gabapentin- daily dose w/ possible dose roxanne HPI Chief complaint: HPI: Sunshine Pleitez is a 51 y.o. female who presents today for a yearly exam, last seen for an annual exam one year ago. 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 She began having abnormal pap smears in 2005, alternating between ASCUS and LSIL, and also was diagnosed with VAIN II and underwent laser therapy for that in 2005. She denies any vaginal bleeding. Helast abnormal pap smear was ASCUS with positive HR HPV in 2009, benign colposcopy, and her paps since then have been NIL. Last pap smear: 11/2010, NIL History of abnormal pap smears. Yes, as above History of STDs: yes, HSV II, on suppressive therapy with no outbreaks over the past year. Vaginal complaints: none She has had a long standing history of [...] years ago, and had been doing fine, until the about two years ago, when she began having hot flashesand night sweats again, 2-3 times daily. At that point, we increased her Effexor to 150 mg daily with little relief. At our last visit, we had also started gabapentin, 300 mg qhs, which helped somewhat, but she continued having hot flashes during the day. At that point she began taking it 100 mg inmorning and mid day, but stopped the mid day dose due to concerns of conflicts with her timing for her calcium. She is interested in increasing her dose. Follows with damian Brooke for her history of breast cancer. Last DEXA was in 09/20, was overall stable with some improvement. Recommended follow up in 5 years. Recently , doing well. Is scheduled to have back surgery on Tuesday, will be out on disability for 2 months. Problem List: Patient Active Problem List Diagnoses ??? LGSIL on Pap Smear ??? Premature ovarian failure ??? HSV-2 infection ??? Unspecified menopausal and postmenopausal disorder ??? Routine gynecological examination ??? Lumbar radicular pain ??? Acquired spondylolisthesis ??? Lumbosacral spondylosis without myelopathy ??? Acquired absence of breast and nipple Past medical history: Past Medical History Diagnosis Date ??? 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 Allergy Surgical History Past Surgical History Procedure Date ??? Breast surgery 01/30/2004 Right mastectomy ??? Breast reconstruction 01/30/2004 subpectoral implant ??? Carpal tunnel release 2007 ??? Lipoma resection 2000 Family History: Family History Problem Relation Age of Onset ??? Cancer Father bladder ??? Cancer Maternal Uncle bladder ??? Breast Cancer Paternal Aunt 35 Health Maintenance Mammogram: UTD Colonoscopy: UTD, just had her baseline Cholesterol screening:Followed by PCP Immunizations: Tetanus: UTD Gardasil: NA Social history: reports that she has never smoked. She does not have any smokeless tobacco history on file. The patient states she drinks infrequently per week. Employment history/work hazards: None Exercise: difficult due to back pain Calcium: good Vitamin D: good Folic Acid: MVI Bicycle helmet use:NA Wears seatbelts: yes Patient Active Problem List Diagnoses ??? LGSIL on Pap Smear ??? Premature ovarian failure ??? HSV-2 infection ??? Unspecified menopausal and postmenopausal disorder ??? Routine gynecological examination ??? Lumbar radicular pain ??? Acquired spondylolisthesis ??? Lumbosacral spondylosis without myelopathy ??? Acquired absence of breast and nipple Past Medical History Diagnosis Date ??? 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 Allergy Past Surgical History Procedure Date ??? Breast surgery 01/30/2004 Right mastectomy ??? Breast reconstruction 01/30/2004 subpectoral implant ??? Carpal tunnel release 2007 ??? Lipoma resection 2000 Family History Problem Relation Age of Onset ??? Cancer Father bladder ??? Cancer Maternal Uncle bladder ??? Breast Cancer Paternal Aunt 35 Social History Substance Use Topics ??? Smoking status: Never Smoker ??? Smokeless tobacco: Not on file ??? Alcohol Use: 1.5 oz/week 3 drink(s) per week Current Outpatient Prescriptions on File Prior to Visit Medication Sig Dispense Refill ??? gabapentin (NEURONTIN) 100 mg capsule TAKE 1 CAPSULE TWICE A DAY, WITH BREAKFAST AND LUNCH 180 Cap 2 ??? calcium-vitamin D (OS-CHAR D) 500 mg(1,250mg) -200 unit per tablet Take 1 Tab by mouth 2 times daily with breakfast and dinner. ??? cetirizine (ZYRTEC) 10 mg tablet Take 10 mg by mouth as needed. ??? omeprazole (PRILOSEC) 20 mg capsule Take 20 mg by mouth daily. ??? acetaminophen (TYLENOL) 500 mg tablet Take 1,000 mg by mouth every 6 hours as needed. ??? mupirocin calcium (BACTROBAN NASAL) 2 % nasal ointment Apply to each nostril with a Q-tip twicea day, then pinch nose for several seconds for five day. 1 Tube 0 ??? CALCIUM CARBONATE (TUMS CALCIUM FOR LIFE BONE ORAL) Take 500 mg by mouth. With vit d ??? venlafaxine (EFFEXOR-XR) 150 mg XR capsule Take 1 Cap by mouth daily. 90 Cap 3 ??? valACYclovir (VALTREX) 500 mg tablet Take 1 Tab by mouth daily. 90 Tab 3 ??? gabapentin (NEURONTIN) 300 mg capsule Take 1 Cap by mouth at bedtime. 90 Cap 3 ??? RED YEAST RICE EXTRACT ORAL Take 1,200 mg by mouth daily. ??? DOXYLAMINE SUCCINATE (UNISOM ORAL) Take by mouth as needed. Takes half a tablet ??? IBUPROFEN ORAL Take by mouth as needed. ??? MULTIVITS W-CA,FE,OTHER MIN (WOMEN'S DAILY FORMULA ORAL) Take by mouth daily. Allergies Allergen Reactions ??? Sulfa(Sulfonamide Antibiotics) Hives Light lavender rash Review of Systems Constitutional: Negative. HENT: Negative. Eyes: Negative. Respiratory: Negative. Cardiovascular: Negative. Gastrointestinal: Negative. Genitourinary: Negative. Musculoskeletal: Negative. Skin: Negative. Neurological: Negative. Endo/Heme/Allergies: Hot flashes Psychiatric/Behavioral: Negative. - See HPI Objective: BP 130/82 Wt 69.854 kg (154 lb) Physical Exam Constitutional: She is oriented to person, place, and time. She appears well- developed and well-nourished. HENT: Head: Normocephalic and atraumatic. Eyes: Pupils are equal, round, and reactive to light. Right eye exhibits no discharge. Left eye exhibits no discharge. Neck: Normal range of motion. No thyromegaly present. Cardiovascular: Normal rate and regular rhythm. Exam reveals no gallop and no friction rub. No murmur heard. Pulmonary/Chest: Effort normal. No respiratory distress. She has no wheezes. She has no rales. She exhibits no tenderness. S/p B mastectomies with reconstruction. No masses or lesions. Recently underwent right nipple reconstruction. Abdominal: Soft. She exhibits no distension. There is no tenderness. There is no [...] around the vagina. No vaginal discharge found. Musculoskeletal: Normal range of motion. Lymphadenopathy: She has no cervical adenopathy. Neurological: She is alert and oriented to person, place, and time. Skin: Skin is warm and dry. Psychiatric: She has a normal mood and affect. Assessment: Yearly hand mica plate layer exam. History of ASCUS, LSIL, VAIN 2. Hot flashes with history of premature ovarian failure, history of DCIS. Plan: There are no diagnoses linked to this encounter. Pap sent, continue yearly given recent history of abnormals as well as VAIN 2. If abnormal refer for colposcopy. Will trial increasing gabapentin to 600 mg qhs, and she can go to 200 mg in the am and mid day. Will reasses. DEXA due in 2014. Continue follow up with Damian Brooke. TANK Crawford documented in this encounter Plan of Treatment Upcoming Encounters Date Type Department Care Team (Late st Contact Info) Description 04/02/2024 10:30 EDT Appointment [facility] Interventional Radiology Unit [address] [place] [address] [phone] 04/02/2024 15:15 EDT Office Visit [facility] Surgical Oncology - [address] [phone] Adolfo Carreno MD [address] [place] [address] [address] [place] [phone] 04/05/2024 9:30 EDT Telemedicine [facility] - [facility] Palliative Care Services [address], [place] [phone] Chichi Woods MD [address] [place] [address], [address] [phone] 04/11/2024 15:00 EDT Telemedicine [facility] Hematology & Oncology - [address] [phone] Alisson Carreon MD [address] [place] [address] [address] [place] [phone] 04/13/2024 13:30 EDT Appointment [facility] Hematology & Oncology - [address] [id number] 04/13/2024 14:00 EDT Appointment [facility] Hematology & Oncology [address] [phone] 04/16/2024 10:00 EST Telemedicine [facility] - [facility] Palliative Care Services [address] [place] [address] 889101 Chichi Woods MD [address] [place] [phone] 04/24/2024 9:00 EST Appointment [facility] Radiology CT Outpatient - [address] [place] [address] [id number] 04/24/2024 11:00 EST Appointment [facility] Breast Imaging - [facility] [address] [phone] 04/27/2024 12:00 EST Appointment [facility] Hematology & Oncology - [address] [phone] 05/02/2024 15:00 EST Telemedicine [facility] Hematology & Oncology [address] [phone] Alisson Carreon MD [address] [place] [address], [facility], Level [address] [place] [phone] 05/04/2024 10:15 EST Ancillary Procedure [facility] Cardiology - [address] [place] [address] 05/04/2024 11:30 EST Appointment [facility] Hematology & Oncology - [address] [phone] 05/04/2024 12:00 EST Appointment [facility] Hematology & Oncology - [address] [phone] 06/12/2024 13:00 EST Appointment [facility] Radiology CT - [address] [place] [address] [address] Scheduled Orders Name Type Priority Associated Diagnoses Orde r Schedule SCREENING PAP SMEAR;OBTAIN,PREP,CON VEY TO LAB Procedures Routine Routine gynecological examination Ordered: 12/08/2011 documented as of this encounter Visit Diagnoses Diagnosis Routine gynecological examination- Primary documented in this encounter Discontinued Medications Medication Sig Discontinue Reason Start Date End Da te gabapentin (NEURONTIN) 300 mg capsule Take 1 Cap by mouth at bedtime. Alternate therapy 06/21/2011 12/08/2011 gabapentin (NEURONTIN) 100 mg capsule TAKE 1 CAPSULE TWICE A DAY, WITH BREAKFAST AND LUNCH Reorder 10/28/2011 12/08/2011 documented as of this encounter Care Teams Marine Firer Relationship Specialty Start Date End Date Linda Blancas MD [facility] [address] [place] [address] PCP - General 01/06/11 documented as of this encounter
--- OUTSIDE RECORDS SUMMARY | 2024-03-20 15:12 | XMS_ITS | Encounter Summary ---
Author Organization [facility] Address [address] [place] [address] Care Team Providers Care Skiff Operator Name Role Phone Linda Blancas MD Primary Care Provider [phone] Reason for Visit * Reason Onset Date Comments Drainage from Incision 12/22/2011 Encounter Details Date Type Department Care Team (Late st Contact Info) Description 12/22/2011 Telephone [facility] Spine Program [place] [address] [place] [address] Anusha Norwood, RN [address] [place] [address] Drainage from Incision Social History Tobacco Use Types Packs/Day Years [...] Miscellaneous Notes * Telephone Encounter - Anusha Norwood, RN - 12/22/2011 0952 EDT S/p ASF/PSF L3-S1 decomp/fusion/local/allog/ped screws. Pt calling this morning concerned about an area along her incision, near the staple line. The area is red, edematous, and oozing pale yellow drainage. Pt did state her tempeture was 100 Kamar night (12/19). Denies any chills at this time. Her pain level at this time is an 8.5/10. She is taking oxycodone ir 15 mg every 4-5 hours with some relief. Pt is also concerned with an area above her incision, where she had three tape blister that had broken open. Encouraged pt to come to clinic, so this typewriter operator automatic can take a look at her incision. Due topt living so far away and unable to get a ride today, pt is going to see her PCP. Instructed pt to have her PCP to call this typewriter operator automatic to discuss pt wound. Also discussed with Dr. Hanley. Dr. Hanley would like baseline labs, CBC, sed. Rate, CRP. Dr. Blancas called regarding pt's wound. Dr. Blancas feels that the incision is not infected. The area is a dime adjacent to the francisco j and seems to be irritated. No drainage noted on dressing by Dr. Blancas. Dr. Blancas did not feel that labs needed to be drawn. Pt will continue to monitor wound and call if any changes occur. documented in this encounter Plan of Treatment Upcoming Encounters Date Type Department Care Team (Late st Contact Info) Description 04/02/2024 10:30 EDT Appointment [facility] Interventional Radiology Unit [address] [place] [address] [phone] 04/02/2024 15:15 EDT Office Visit [facility] Surgical Oncology - [facility] [address] [place], [place] [address] Adolfo Carreno MD [address] [facility], Level [address] [place] [phone] 04/05/2024 9:30 EDT Telemedicine [facility] - [facility] Palliative Care Services [address] [place] [address] [phone] Chichi Woods MD [address] [place] [address] [address] [place] [phone] 04/11/2024 15:00 EDT Telemedicine [facility] Hematology & Oncology - [address] [phone] Alisson Carreon MD [address] [place] [address] [address] [place] [phone] 04/13/2024 13:30 EDT Appointment [facility] Hematology & Oncology - [address] [phone] 04/13/2024 14:00 EDT Appointment [facility] Hematology & Oncology [address] [phone] 04/16/2024 10:00 EST Telemedicine [facility] - [facility] Palliative Care Services [address] [place] [address] [id number] Chichi Woods MD [address] [place] [phone] 04/24/2024 9:00 EST Appointment [facility] Radiology CT Outpatient - [address] [phone] 04/24/2024 11:00 EST Appointment [facility] Breast Imaging - [address] [phone] 04/27/2024 12:00 EST Appointment [facility] Hematology & Oncology - [address] [phone] 05/02/2024 15:00 EST Telemedicine [facility] Hematology & Oncology - [address] [phone] Alisson Carreon MD [address] [place] [address] [address] [place] [phone] 05/04/2024 10:15 EST Ancillary Procedure [facility] Cardiology - [address] [place] [address] 05/04/2024 11:30 EST Appointment [facility] Hematology & Oncology - [address] [phone] 05/04/2024 12:00 EST Appointment [facility] Hematology & Oncology - [address] [phone] 06/12/2024 13:00 EST Appointment [facility] Radiology CT - [address] [phone] documented as of this encounter Visit Diagnoses Not on filedocumented in this encounter Care Teams Skiff Operator Relationship Specialty Start Date End Date Linda Blancas MD [facility] [address] [place] [address] PCP - General 01/06/11 documented as of this encounter
--- OUTSIDE RECORDS SUMMARY | 2024-03-20 15:12 | XMS_ITS | Encounter Summary ---
Author Organization [facility] Address [address] [place] [address] Care Team Providers Care Founder Ceo & President Name Role Phone Linda Blancas MD Primary Care Provider [phone] Reason for Visit * Reason Onset Date Comments Post-op Problem 12/31/2011 Encounter Details Date Type Department Care Team (Late st Contact Info) Description 12/31/2011 Telephone [facility] Spine Program [place] [address] [place] [address] Anusha Norwood, RN [address] [place] [address] Post-op Problem Social History Tobacco Use Types Packs/Day [...] Telephone Encounter - Anusha Norwood, RN - 12/31/2011 0903 EDT Pt's calling concerned that an area along pt's back incision has opened up about a 1/4 of an inch. He states that there is pus around the incision, but there is no drainage from the incision.Pt has no fevers of chills at this time. Instructed pt to go to the ER for evaluation. Dr. Hanley aware that pt will be going to ER. documented in this encounter Plan of Treatment Upcoming Encounters Date Type Department Care Team (Late st Contact Info) Description 04/02/2024 10:30 EDT Appointment [facility] Interventional Radiology Unit [address] [place] [address] [phone] 04/02/2024 15:15 EDT Office Visit [facility] Surgical Oncology - [address] [phone] Adolfo Carreno MD [address] [place] [phone] 04/05/2024 9:30 EDT Telemedicine [facility] - [facility] Palliative Care Services [address] [place] [address] [phone] Chichi Woods MD [address] [place] [phone] 04/11/2024 15:00 EDT Telemedicine [facility] Hematology & Oncology [address] [phone] Alisson Carreon MD [address] [place] [phone] 04/13/2024 13:30 EDT Appointment [facility] Hematology & Oncology [address] [phone] 04/13/2024 14:00 EDT Appointment [facility] Hematology & Oncology [address] [phone] 04/16/2024 10:00 EST Telemedicine [facility] - [facility] Palliative Care Services [address] [place] [address] [phone] Chichi Woods MD [address] [place] [address], [address] [phone] 04/24/2024 9:00 EST Appointment [facility] Radiology CT Outpatient - [address] [id number] 04/24/2024 11:00 EST Appointment [facility] Breast Imaging - [facility] [address] [place], [place] 888931 04/27/2024 12:00 EST Appointment [facility] Hematology & Oncology - [address] [phone] 05/02/2024 15:00 EST Telemedicine [facility] Hematology & Oncology - [address] [phone] Alisson Carreon MD [address] [place] [address], Level [address] [place] [phone] 05/04/2024 10:15 EST Ancillary Procedure [facility] Cardiology [place] [address] 05/04/2024 11:30 EST Appointment [facility] Hematology & Oncology - [address] [phone] 05/04/2024 12:00 EST Appointment [facility] Hematology & Oncology [address] [phone] 06/12/2024 13:00 EST Appointment [facility] Radiology CT - [address] [phone] documented as of this encounter Visit Diagnoses Not on filedocumented in this encounter Care Teams Founder Ceo & President Relationship Specialty Start Date End Date Linda Blancas MD [address] [place] [address] PCP - General 01/06/11 documented as of this encounter
--- OUTSIDE RECORDS SUMMARY | 2024-03-20 15:12 | XMS_ITS | Encounter Summary ---
Author Organization [facility] Address [address] [place] [address] Care Team Providers Care Steward/Stewardess Lounge Name Role Phone Linda Blancas MD Primary Care Provider [phone] Reason for Visit * Reason Onset Date Comments Post-OP Follow Up 01/17/2012 Encounter Details Date Type Department Care Team (Late st Contact Info) Description 01/17/2012 Telephone [facility] Spine Program [place] [address] [place] [address] Anusha Norwood, RN [address] [place] [address] Post-OP Follow Up Social History Tobacco Use [...] Telephone Encounter - Anusha Norwood, RN - 01/17/2012 3630 EDT Pt's calling with several questions. On abdominal incision there is a dissolvable stitch that is poking through the skin. Instructed pt's that he can cut the end off. He is also concerned about a dissolvable stitch within the open area on her back. This stitch is not bothering pt, so instructed to leave stitch alone for now. Also followed up to see how pt was doing after calling in with c/o nausea and dizziness. Pt has decreased her walking to 15 minutes 2-3 times a day and has no episodes of nausea or dizziness. documented in this encounter Plan of Treatment Upcoming Encounters Date Type Department Care Team (Late st Contact Info) Description 04/02/2024 10:30 EDT Appointment [facility] Interventional Radiology Unit [address] [place] [address] [phone] 04/02/2024 15:15 EDT Office Visit [facility] Surgical Oncology - [address] [phone] Adolfo Carreno MD [address] [place] [address] [address] [place] [phone] 04/05/2024 9:30 EDT Telemedicine [facility] - [facility] Palliative Care Services [address] [place] [address] [id number] Chichi Woods MD [address] [place] [address] [phone] 04/11/2024 15:00 EDT Telemedicine [facility] Hematology & Oncology [address] [phone] Alisson Carreon MD [address] [place] [address] [phone] 04/13/2024 13:30 EDT Appointment [facility] Hematology & Oncology - [address] [phone] 04/13/2024 14:00 EDT Appointment [facility] Hematology & Oncology - [address] [address] 04/16/2024 10:00 EST Telemedicine [facility] - [facility] Palliative Care Services [address] [place] [address] [id number] Chichi Woods MD [address] [place] [address], [address] [phone] 04/24/2024 9:00 EST Appointment [facility] Radiology CT Outpatient - [address] [id number] 04/24/2024 11:00 EST Appointment [facility] Breast Imaging - [facility] S [address] [phone] 04/27/2024 12:00 EST Appointment [facility] Hematology & Oncology - [address] [phone] 05/02/2024 15:00 EST Telemedicine [facility] Hematology & Oncology - [address] [phone] Alisson Carreon MD [address] [place] [address], [facility] [address] [place] [phone] 05/04/2024 10:15 EST Ancillary Procedure [facility] Cardiology [place] [address] [place] [address] 05/04/2024 11:30 EST Appointment [facility] Hematology & Oncology - [address] [address] 05/04/2024 12:00 EST Appointment [facility] Hematology & Oncology - [address] [id number] 06/12/2024 13:00 EST Appointment [facility] Radiology CT - [address] [address] documented as of this encounter Visit Diagnoses Not on filedocumented in this encounter Care Teams Steward/Stewardess Lounge Relationship Specialty Start Date End Date Linda Blancas MD [address] [facility] [address] [place] [address] PCP - General 01/06/11 documented as of this encounter
--- OUTSIDE RECORDS SUMMARY | 2024-03-20 15:12 | XMS_ITS | Encounter Summary ---
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 She hada positive anterior skin margin. She had no adjuvant radiation or hormone therapy. She underwent bilateral implant reconstruction with Pavan Batres. This was for augmentation on the left. Status post 08/2011 right nipple reconstruction. SUBJECTIVE: Sendy comes for routine posttreatment surveillance. She does regular self exams and denies any new changes or problems. She is otherwise in excellent health currently. She is pleased withher right nipple reconstruction done August 2011. She had surgical decompression and fusion of L3 - S1 spinal surgery by Dr Hanley in December 2011. She is back to walking 1 1/2 hours and is feeling much better currently. This has been a huge surgery torecover from (abdominal and spinal approaches). One of her 5 brothers was recently diagnosed with esophogeal cancer at age 59. He has been treated in [place] with chemo, radiation and surgery. There is no other significant family history of cancer. She got last March and has started a new job. She is quite happy in her life overall. Patient Active Problem List Diagnoses ??? LGSIL [...] L3 - S1 spinal decompression and fusion Outpatient Prescriptions Marked as Taking for the 02/25/12 encounter (Office Visit) with Damian Brooke NP Medication Sig Dispense Refill ??? oxycodone (ROXICODONE) 5 mg immediate release tablet 1-2 tablets every 6 hours as needed for pain. 112 Tab 0 ??? gabapentin (NEURONTIN) 300 mg capsule Take 2 Caps by mouth at bedtime. 180 Cap 3 ??? gabapentin (NEURONTIN) 100 mg capsule Take 2 Caps by mouth 2 times daily before breakfast and lunch. 360 Cap 3 ??? calcium-vitamin D (OS-CHAR D) 500 mg(1,250mg) -200 unit per tablet Take 1 Tab by mouth 2 times daily with breakfast and dinner. ??? acetaminophen (TYLENOL) 500 mg tablet Take 1,000 mg by mouth every 6 hours as needed. ??? venlafaxine (EFFEXOR-XR) 150 mg XR capsule Take 1 Cap by mouth daily. 90 Cap 3 ??? valACYclovir (VALTREX) 500 mg tablet Take 1 Tab by mouth daily. 90 Tab 3 ??? RED YEAST RICE EXTRACT ORAL Take 1,200 mg by mouth daily. ??? DOXYLAMINE SUCCINATE (UNISOM ORAL) Take by mouth as needed. Takes half a tablet ??? MULTIVITS W-CA,FE,OTHER MIN (WOMEN'S DAILY FORMULA ORAL) Take by mouth daily. Allergies Allergen Reactions ??? Sulfa(Sulfonamide Antibiotics) Hives Light lavender rash Family History Problem Relation Age of Onset ??? Cancer Father bladder ??? Cancer Maternal Uncle bladder ??? Breast Cancer Paternal Aunt 36 [employer] HISTORY: Menarche at 13. G0. She used oral contraceptives for 15 years and went through an early menopause at age 38. She had a history of abnormal Pap smears in 2006. SOCIAL HISTORY: She is got in March 2011. She has a job working in [employer]. She travels 2 out of 4 weeks each month. OBJECTIVE:Ht 158.7 cm (62.48) Wt 66.679 kg (147 lb) BMI 26.48 kg/m2 On physical exam is a 51-year-old woman in no acute distress. Her color is good. Her skin is warm and dry. Her sclerae are anicteric. She has no cervical, clavicular, or axillary adenopathy. Breast exam is done in sitting and supine positions. She has a well-healed total mastectomy scar on the right side with an implant reconstruction and recent nipple reconstruction. There is no palpable abnormality appreciated. She has a faded areolar tattooing inferiorly. The left breast also reveals subpectoral implant with no skin puckering in the overlying tissue. There is no palpable abnormality appreciated. Abdomen is soft, nontender with no organomegaly. A left breast mammogram was done 08/2011 showing scattered density with no evidence for malignancy of the left breast. 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 She has no clinical evidence for recurrence. She is recovering from spine surgery and plans toreturn to an active lifestyle. She will be seen for mammogram of the left breast in August 2011, and I will see her here for clinical evaluation in 1 year. She knows to come sooner if she develops new changes or problems. documented in this encounter Plan of Treatment Upcoming Encounters Date Type Department Care Team (Late st Contact Info) Description 04/02/2024 10:30 EDT Appointment [facility] Interventional Radiology Unit [address] [place] [address] [id number] 04/02/2024 15:15 EDT Office Visit [facility] Surgical Oncology - [address] [phone] Adolfo Carreno MD [address] [place] [address], [facility] [address] [place] [phone] 04/05/2024 9:30 EDT Telemedicine [facility] - [facility] Palliative Care Services [address] [place] [address] [id number] Chichi Woods MD [address] [place] [address], [address] [phone] 04/11/2024 15:00 EDT Telemedicine [facility] Hematology & Oncology - [address] [phone] Alisson Carreon MD [address] [place], [place] [address]on, Level [address] [place] [phone] 04/13/2024 13:30 EDT Appointment [facility] Hematology & Oncology [address] [phone] 04/13/2024 14:00 EDT Appointment [facility] Hematology & Oncology - [address] [phone] 04/16/2024 10:00 EST Telemedicine [facility] - [facility] Palliative Care Services [address] [place] [address] [phone] Chichi Woods MD [address] [place] [address], [address] [phone] 04/24/2024 9:00 EST Appointment [facility] Radiology CT Outpatient - [address] [id number] 04/24/2024 11:00 EST Appointment [facility] Breast Imaging - [facility] S [address] [phone] 04/27/2024 12:00 EST Appointment [facility] Hematology & Oncology [address] [phone] 05/02/2024 15:00 EST Telemedicine [facility] Hematology & Oncology - [address] [phone] Alisson Carreon MD [address] [place] [address], [address] [place] [phone] 05/04/2024 10:15 EST Ancillary Procedure [facility] Cardiology - [address] [place], [place] [phone] 05/04/2024 11:30 EST Appointment [facility] Hematology & Oncology - [address] [address] 05/04/2024 12:00 EST Appointment [facility] Hematology & Oncology - [address] [address] 06/12/2024 13:00 EST [facility] Rad[facility] - [address] [phone] documented as of this encounter Visit Diagnoses Diagnosis Acquired absence of breast and nipple- Primary Personal history of malignant neoplasm of breast documented in this encounter Care Teams Air Plant Engineer Relationship Specialty Start Date End Date Linda Blancas MD [facility] [address] [place] [address] PCP - General 01/06/11 documented as of this encounter
--- OUTSIDE RECORDS SUMMARY | 2024-03-20 15:12 | XMS_ITS | Encounter Summary ---
Author Organization [facility] Address [address] [place] [address] Care Team Providers Care Hand Washer Name Role Phone Ramses Blancas MD Primary Care Provider [phone] Encounter Details Date Type Department Care Team (Late st Contact Info) Description 12/13/2011 7:48 EDT - 12/17/2011 13:25 EDT Hospital Encounter [facility] General Surgery Unit [address] [place] [address] Felipe Ny MD [address] [facility] [place] [address] Acquired spondylolisthesis; Lumbar radicular pain Discharge Disposition: Home or Self Care Social [...] Sign Reading Time Taken Comments Blood Pressure 125/58 12/17/2011 1039 EDT Pulse 98 12/17/2011 0459 EDT Temperature 37.1 ??C (98.8 ??F) 12/17/2011 1039 EDT Respiratory Rate 16 12/17/2011 1039 EDT Oxygen Saturation 99% 12/17/2011 1039 EDT Inhaled Oxygen Concentration - - Weight 68 kg (150 lb) 12/03/2011 1513 EDT Height 154.9 cm (5' 1) 12/03/2011 1513 EDT Body Mass Index 28.34 12/03/2011 1513 EDT documented in this encounter Functional Status Cognitive Status Response Date of Assessm ent Because of a physical, menta l, or emotional condition, do you have serious difficulty concentrating, remembering, or making decisions? (5 years old or older) No 12/13/2011 documented as of this encounter Discharge Summaries * Hugo Hicks MD - 12/16/2011 0938 EDT Discharge Summary Chief Complaint/Reason for Admission: Back pain Admitted Via: DOSA Date: 12/13/2011 Principal/Final Diagnosis: Lumbar stenosis Principal Procedure: L3-S1 ASF/PSF, ICBG Date: 12/13/2011 Condition at Discharge: Good Assessment at Discharge: Blood pressure 110/57, pulse 98, temperature 37.4 ??C (99.3 ??F), temperature source Tympanic, resp. rate 16, height 154.9 cm (61), weight 68.04 kg (150 lb), SpO2 93.00%. Hospital Course: The patient tolerated the procedure well. Recovered on the floor uneventfully. Pain was controlled with oral pain medicine. Voided independently, and was tolerating PO. PT evaluationrecommended dc to home. The patient was ready for dc. Please see Discharge instructions for wound care, bathing, activity recommendations. Relevant Studies at Discharge: none cc: RAMSES BLANCAS, DO Ramses Blancas documented in this encounter Discharge Instructions * Discharge Instructions* Hugo Hicks MD - 12/16/2011 9:41 EDT ORTHO SPINE DISCHARGE INSTRUCTIONS Diet: Regular Your bowels will move slowly if you are taking narcotic pain medicine. You need to continue taking stool softener while you take these medicines. We recommend docusate, senna, or miralax. These can be taken in combination or alone. They are available over the counter. Take as directed on the package. Activity: Activity as tolerated except: No heavy lifting or stenuous activity. No driving until you see your physician. No bending Skin/Wound Care: OK to shower 5-7 days post-op if wound is dry. No tubs, pools or soaks. Call if there is wound drainage or redness. Remove stiches or francisco j 14 days after surgery unless instructed otherwise (see below). This may be done at your rehab center, by your primary care doctor, visiting nurse or with a follow up at the spine clinic if you live locally. Keep wound covered until post-op day 5. OK to leave wound uncovered if dry thereafter. Pending Results: Not applicable Symptoms to Call Your Doctor About: Numbness in extremity Odor from incision Pain unrelieved by medication Redness, swelling or drainage from wound Temperature greater than 101 degrees F Appointments: See Felipe Eng MD. PLEASE CALL THE DAY OF DISCHARGE OR NEXT BUSINESS DAY TO SCHEDULE YOUR ORTHOPAEDICS FOLLOW UP APPOINTMENT Follow-up Services Contacted at Discharge: none Health Risk and Disease Information: Not applicable If there are any questions or concerns about your post-operative care instructions please call Felipe Eng MD's office at [phone]. Future Appointments Date Time Provider Department Center 01/03/2012 13:00 James Valle, PT [facility] None 02/01/2012 13:00 Lacy Oseguera, PT [facility] None 02/01/2012 13:45 Felipe Ny MD Spine None 02/25/2012 11:30 Damian Brooke NP [facility] None 03/07/2012 12:00 Lacy Oseguera, PT [facility] None 03/07/2012 12:30 Felipe Ny MD Spine None documented in this encounter Medications at Time [...] mouth every 6 hours as needed. 12/08/2012 CALCIUM CARBONATE (TUMS CALCIUM FOR LIFE BONE ORAL) Take 500 mg by mouth. With vit d 01/07/2012 cetirizine (ZYRTEC) 10 mg tablet Take 10 mg by mouth as needed. 02/01/2012 DOXYLAMINE SUCCINATE (UNISOM ORAL) Take by mouth as needed. Takes half a tablet 02/02/2011 01/13/2022 gabapentin (NEURONTIN) 100 mg capsule Take 2 Caps by mouth 2 times daily before breakfast and lunch. 360 Cap 3 12/08/2011 08/16/2012 gabapentin (NEURONTIN) 300 mg capsule Take 2 Caps by mouth at bedtime. 180 Cap 3 12/08/2011 08/16/2012 mupirocin calcium (BACTROBAN NASAL) 2 % nasal ointment Apply to each nostril with a Q-tip twice a day, then pinch nose for several seconds for five day. 1 Tube 0 11/30/2011 01/07/2012 omeprazole (PRILOSEC) 20 mg capsule Take 20 mg by mouth daily. 02/01/2012 oxycodone (ROXICODONE) 5 mg immediate release tablet Take 1-3 Tabs by mouth every 4 hours as needed for Pain (wean off as able, hold for somnolence). 70 Tab 0 12/16/2011 12/22/2011 valACYclovir (VALTREX) 500 mg tablet Take 1 Tab by mouth daily. 90 Tab 3 06/21/2011 05/29/2012 venlafaxine (EFFEXOR-XR) 150 mg XR capsule Take 1 Cap by mouth daily. 90 Cap 3 06/21/2011 07/19/2012 documented as of this encounter Ordered Prescriptions Prescription Sig Dispensed Refills Start Date End Da te oxycodone (ROXICODONE) 5 mg immediate release tablet Take 1-3 Tabs by mouth every 4 hours as needed for Pain (wean off as able, hold for somnolence). 70 Tab 0 12/16/2011 12/22/2011 documented in this encounter Discharge Disposition Disposition Code Departure Means Destination Home or Self Care documented in this encounter Progress Notes * Lorenza Barr, RN - 12/17/2011 3903 EDT D/c instructions reviewed with pt & pt's sister, steffanie d/c'd, rx's given to pt to fill at personal pharmacy * Hugo Hicks MD - 12/17/2011 0912 EDT Orthopaedic Spine Daily Progress Note POD#4 s/p ASF/PSF L3-S1 with Dr. Ny on 12/13/2011. S: Pain controlled. No nausea, vomiting, chest pain or shortness of breath. + BM. Ambulating well. Blood pressure 110/57, pulse 98, temperature 37.4 ??C (99.3 ??F), temperature source Tympanic, resp. rate 16, height 154.9 cm (61), weight 68.04 kg (150 lb), SpO2 93.00%. Gen: NAD Lungs: breathing non-labored Heart: no cyanosis Back: dressing holding suction BLE 4+/5 GS/TA/EHL/FHL LTSI dp/sp/t 2+ DP pulse Skin warm and well perfused X-rays: instrumentation intact, good alignment WBC/Hgb/Hct/Plts: 12.22/8.4/24.6/198 (12/15 509) BUN/Cr/glu/ALT/AST/amyl/lip: 12/0.57/--/--/--/--/-- (12/15 509) Na/K/Cl/CO2: 137/4.1/100/30 (12/15 509) A/P: 51 y.o. female POD#4 s/p above. Doing well. ?? Pain control: as ordered ?? Weight bearing: as tolerated ?? Category A ?? PT consulted ?? Diet: ADAT ?? DVT: SCDs, mobilize ?? Dispo: today as stable HUGO HICKS MD * Antonia Rod - 12/16/2011 1243 EDT [facility] Physical Therapy Discontinue/Discharge Note Date of Service: 12/16/2011 Precautions: Activity as tolerated SUBJECTIVE: Pt agreeable to working with PT today. I am going home tomorrow. OBJECTIVE: Intervention Completed Today: Time (treatment time and duration): 10:40 x 25 min Therapeutic exercise: Gluteal and quad isometrics, ankle pumps and abdominal isometrics x 10 reps. Patient Independent with HEP after instruction/practice today. Therapeutic activities: Pt ambulated 400 ft without RW and close to distant Supervision with No LOB episodes today. Patient performed bed mobility and sit<>stand transfers from recliner chair, bed and toilet without assistive device with distant Supervision with no LOB noted today. Vital signs were monitored and were stable throughout physical therapy session BP 126/70, HR 94 & SPO2 97-98%. Patient/Family Education: Topic: Activity pacing/Energy conservation Discharge planning - pt declines home PT through [facility] -stating she prefers to work with a PT friend for the first 3 weeks until she is cleared for driving. Exercise Stairs Transfers Learner: patient Method: verbal and demonstration Barriers to Learning: none noted Outcome: verbalized understanding and returned demonstration Team Communication: RN aware of PT treatment and outcomes. Patient has been seen in physical therapy since 12/14/11 for Therapeutic exercises and Therapeutic activities. In this reporting period 12/14/11 to 12/16/11 the patient has been seen by a physical therapist. Frequency: daily twice. Intensity: 25-35 minutes per session. Duration: During this hospitalization. Please refer to the physical therapy notes for specifics on the patient's functional status and treatment sessions. Relevant objective findings: AROUSAL, ATTENTION, AND COGNITION: A & O x 3 CARDIOPULMONARY: VS's were stable with treatment today. MUSCLE PERFORMANCE: B UE/LE's strength at least 3/5 throughout BALANCE, LOCOMOTION, AND GAIT: Please refer above to Interventions Completed Today - see above. SELF-CARE, HOME MANAGEMENT, WORK, AND LEISURE: Please refer above to Interventions Completed Today - see above. ASSESSMENT: Physical therapy services in this setting have been discontinued secondary to: Patient will be discharged from the hospital Physical Therapy Diagnosis: Physical Therapy Diagnosis: This patient was appropriate for PT exam and intervention due to patient's PT diagnosis of impaired mobility, balance and aerobic capacity related to patient's recent hospitalization for L3-S1 anterior and posterior decompression and fusion. Rohit brown's required hospitalization placed patient at risk for further deconditioning. Physical Therapy Prognosis: Patient presented with pain, decreased functional mobility and aerobic capacity placing patient below patient's physical activity/mobility baseline. This patient benefitedfrom PT intervention during this hospital stay to maximize functional mobility and increase activity tolerance. Gains in functional mobility and physical activity tolerance were made with physical therapy intervention. Patient reports current level of mobility is below baseline but feels is adequate for discharge home with and sister/friend's assist. Patient has demonstrated adequate mobility for discharge home with family and friends assist as needed. All below goals met except as indicated. Short-Term Goals: N/A Long-Term Goals: LTG 1-10 days; All goals met except as indicated. Patient/Caregiver will be able to demonstrate/perform: Bed mobility: Supervision/Independent. Transfers: Supervsion/ Modified Indpependent with least restrictive AD. Ambulation: Supervision/ Modified Independent x 100-200 ft, room distances; and/or 20 ft 2-3 x day with least restrictive AD. Stairs with an appropriate AD with Min CG Assist/Supervision. The patient will be able to demonstrate proper use of the incentive spirometer with verbal cues formaximal lung expansion, proper technique, and pacing. Discontinue Demonstrate home exercise program as instructed with cues as needed. Demonstrate breathing exercises/pacing/energyconservation strategies with all above activities withcues as appropriate. PLAN: Treatment/Intervention: Physical therapy will be provided by physical therapist and/or physical therapist speech language assistant when medically appropriate. Frequency: twice. Intensity: 25-30 minutes per session Duration: During hospitalization Interventions may include:Therapeutic exercises, Therapeutic activities and Gait training Patient/family education: Discharge planning, Recommendations, Role of physical therapy/rehabilitation, Safety Further Data: PLAN: D/C Physical Therapy Recommended Discharge Destination: Home with 's and sister/friend's part-time assist. Recommended Discharge Services: Patient declines home PT through [facility] -stating she prefers to work with a PT friend for the first 3 weeks until she is cleared for driving. Recommended Equipment Needs: No equipment necessary Other recommendations: No other consults recommended at this time Pager: [phone] Antonia Rod, PT 12/16/2011 12:43 * Hugo Hicks MD - 12/16/2011 0814 EDT Orthopaedic Spine Daily Progress Note POD#3 s/p ASF/PSF L3-S1 with Dr. Ny on 12/13/2011. S: Pain controlled. No nausea, vomiting, chest pain or shortness of breath. + flatus. Ambulating well. Blood pressure 136/57, pulse 96, temperature 36.4 ??C (97.5 ??F), temperature source Tympanic, resp. rate 16, height 154.9 cm (61), weight 68.04 kg (150 lb), SpO2 98.00%. Gen: NAD Lungs: breathing non-labored Heart: no cyanosis Back: dressing holding suction BLE 4+/5 GS/TA/EHL/FHL LTSI dp/sp/t 2+ DP pulse Skin warm and well perfused X-rays: instrumentation intact, good alignment WBC/Hgb/Hct/Plts: 12.22/8.4/24.6/198 (12/15 509) BUN/Cr/glu/ALT/AST/amyl/lip: 12/0.57/--/--/--/--/-- (12/15 509) Na/K/Cl/CO2: 137/4.1/100/30 (12/15 509) A/P: 51 y.o. female POD#3 s/p above. Doing well. ?? Pain control: as ordered ?? Weight bearing: as tolerated ?? Category A ?? PT consulted ?? Diet: ADAT ?? DVT: SCDs, mobilize ?? Dispo: mobilization, pain controlled, expect tonight or tomorrow HUGO HICKS MD * Ania Charles MD - 12/15/2011 0901 EDT Orthopaedic Spine Daily Progress Note POD#2 s/p ASF/PSF L3-S1 with Dr. Ny on 12/13/2011. S: Pain controlled. No nausea, vomiting, chest pain or shortness of breath. + flatus last night, noBM. Ambulated to door. Blood pressure 122/57, pulse 110, temperature 38.2 ??C (100.7 ??F), temperature source Tympanic, resp. rate 16, height 154.9 cm (61), weight 68.04 kg (150 lb), SpO2 94.00%. Gen: NAD Lungs: breathing non-labored Heart: no cyanosis Back: dressing holding suction BLE 4+/5 GS/TA/EHL/FHL LTSI dp/sp/t 2+ DP pulse Skin warm and well perfused X-rays: will order once mobilizing WBC/Hgb/Hct/Plts: 16.75/9.5/27.6/225 (12/14 521) BUN/Cr/glu/ALT/AST/amyl/lip: 13/0.69/--/--/--/--/-- (12/14 521) Na/K/Cl/CO2: 139/4.6/103/27 (12/14 521) A/P: 51 y.o. female POD#2 s/p above. Doing well. ?? Pain control: as ordered ?? Weight bearing: as tolerated ?? Would like boateng out tomorrow ?? Category A ?? PT consulted ?? Diet: Slowly begin sips of clears ?? DVT: SCDs, mobilize ?? Dispo: pending uprights, boateng out, mobilizing, pain controlled ANIA CHARLES MD * Reta Nguyen - 12/14/2011 5592 EDT Case Management Assessment Working Diagnosis/Presenting Problem: Spondylolisthesis s/p anterior and posterior decompression a fusion with local allograft. Living Arrangements: Lives with spouse, single level home, 3 stairs with rails to enter. Functional Status (psychosocial and physical): Independent without equipment. Social Supports: Spouse is available to assist pt 03/01 as needed. Existing Community Resources: n/a Advanced Directives/DPOA: n/a Cultural/Spiritual Needs: n/a Insurance/Financial Needs: N/a, [facility]. Transportation Needs: N/a, spouse will provide. Patient Goals: Home. Assessment and Discharge Care Plan: Tbd. Expect d/c to home with no needs. VIKI 7/5. CM will continue to follow and assist as needed. Reta Nguyen RN/CCM #[id number]. * Marcel Antonia L. - 12/14/2011 0949 EDT [facility] Physical Therapy Initial Evaluation Note Date of Service: 12/14/2011 Reason for Referral: Evaluate and treat Precautions: Activity as tolerated SUBJECTIVE: Pt agreeable to working with PT today. Pain: Location: ant/posterior abdominal incisions Intensity: 6/10 (at present), 4/10 (at best), 9/10 (at worst) Frequency: Fairly constant Quality: Intense sharp pain per patient Aggravating factors: movement Alleviating factors: meds OBJECTIVE: Patient Profile: Patient is a 51 y.o. female admitted on 12/13/2011 secondary to *anterior and posterior decompression and fusion with local The patient lives at [address] [facility] [address] POD#1 s/p ASF/PSF L3-S1 with Dr. Ny on 12/13/2011 Home environment Lives: With Caregiver Support: to provide 24 hour assist initially Equipment Available: None Home Environment: House Home Layout: One story. Entry stairs: 3 with rails Prior Level of Function: Independent Services prior to admission: None Work/Leisure: Need to clarify Medical/Surgical History: Current: Patient Active Problem List Diagnoses ??? LGSIL on Pap Smear ??? Premature ovarian failure ??? HSV-2 infection ??? Unspecified menopausal and postmenopausal disorder ??? Routine gynecological examination ??? Lumbar radicular pain ??? Acquired spondylolisthesis ??? Lumbosacral spondylosis without myelopathy ??? Acquired absence of breast and nipple Past: Past Medical History Diagnosis Date ??? 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 Allergy Past Surgical History Procedure Date ??? Breast surgery 01/30/2004 Right mastectomy ??? Breast reconstruction 01/30/2004 subpectoral implant ??? Carpal tunnel release 2007 ??? Lipoma resection 2000 Medications: Medications reviewed Arousal, Attention, and Cognition: Orientation: Alert Oriented to person, place, and time Cardiopulmonary: Patient vital signs stable per flowsheets and patient not symptomatic during examination BP 133/58, HR 90 and 98%SPO2 Integumentary/Anthropometric Characteristics: Palpation/Observation: Incisions not evaluated due to bandages anterior and posterior Posture: Stiff guarded standing posture 2 to pain. Pt maintained bilat knee flexion in standing Range of Motion and Joint Integrity: Active Range of Motion: AROM UE's WNL. PROM of LE's grossly assessed limited 2 to pain today. Knees and ankles WNL. Hips atleast 90 degrees of flexion and neutral extension, IR/ER grossly wnl. Upper Quarter: Left Upper Extremity: Right Upper Extremity: Cervical Spine: 3/5 Lower Quarter: Left Lower Extremity: Right Lower Extremity: Lumbar Spine: N/T Muscle Performance: Strength: Formal resistive muscle testing was not performed due to pain. UE and LE strength at least 3/5 as assessed during functional mobility testing. Upper Quarter: Left Upper Extremity: Right Upper Extremity: Cervical Spine: Lower Quarter: Left Lower Extremity: Right Lower Extremity: Lumbar Spine: Sensation, Reflexes, and Nerve Integrity: Light Touch Sensation: Upper Quarter: Intact C2-T1 Lower Quarter: Intact for lower extremities Neuromotor Function/Development: No problems noted Balance, Locomotion, and Gait: Balance: No loss of balance observed throughout physical therapy session Locomotion: Not evaluated as wheelchair mobility does not apply to this patient. Gait: Assistive device/distance/assist/deviations: Pt ambulated 25 ft WBAT Bilat LE's with RW and Min CG Assist x 1 with some c/o of lightheadedness. Self-Care, Home Management, Work, and Leisure: Mobility evaluation as follows: Rolling: Min CG Assist Supine to sit: Min CG Assist Sit to supine: Mod Assist for LE's Sit to stand: Min CG Assist with RW Stand to sit: Min CG Assist with RW Bed to chair: Min CG Assist with RW Chair to bed: N/T Informed Consent: The patient consented to the physical therapy evaluation. The patient agrees to and understands the physical therapy treatment plan and goals. Interventions Completed Today: Physical Therapy today at: 11:45 Examination: 15 minutes Intervention: 20 minutes Intervention included: Therapeutic exercise: Gluteal and quad isometrics, ankle pumps and abdominal isometrics x 10 reps. Therapeutic activities: Pt ambulated 45 ft in afternoon (2 pm) with RW and Min CG Assist x 2. Pt had some lightheadedness, increased perspiration Patient/Family Education: Topic: Activity pacing/Energy conservation Assistive device/technique Breathing exercises Discharge planning Home program Role of therapy Safety Transfers Learner: patient Method: verbal and demonstration Barriers to Learning: none noted Outcome: requires assist, needs practice, verbalized understanding and returned demonstration Team Communication: RN aware of PT treatment and outcomes. ASSESSMENT: Upper Quarter Screen: Given new use of assistive device, the patient has been instructed in proper use of upper extremity during mobility, prevention of overuse injuries, and signs to watch for. Physical Therapy Diagnosis: Physical Therapy Diagnosis: This patient is appropriate for PT exam andintervention due to patient's PT diagnosis of impaired mobility, balance and aerobic capacity related to patient's recent hospitalization for L3-S1 anterior and posterior decompression and fusion. Pat ient's required hospitalization places patient at risk for further deconditioning. Physical Therapy Prognosis: Patient presents with pain, decreased functional mobility, balance and aerobic capacity placing patient below patient's physical activity/mobility baseline. This patient would benefit from PT intervention during this hospital stay to maximize functional mobility and increase activity tolerance. Anticpate gains in functional mobility and physical activity tolerance withphysical therapy intervention. Patient reports current level of mobility is below baseline but feels is adequate for discharge home with 's assist. Discharge plan home is feasible if patient continues to improve in mobility. Short-Term Goals: N/A Long-Term Goals: LTG 1-10 days; Patient/Caregiver will be able to demonstrate/perform: Bed mobility: Supervision/Independent. Transfers: Supervsion/ Modified Indpependent with least restrictive AD. Ambulation: Supervision/ Modified Independent x 100-200 ft, room distances; and/or 20 ft 2-3 x day with least restrictive AD. Stairs with an appropriate AD with Min CG Assist/Supervision. The patient will be able to demonstrate proper use of the incentive spirometer with verbal cues formaximal lung expansion, proper technique, and pacing. Demonstrate home exercise program as instructed with cues as needed. Demonstrate breathing exercises/pacing/energyconservation strategies with all above activities withcues as appropriate. PLAN: Treatment/Intervention: Physical therapy will be provided by physical therapist and/or physical therapist speech language assistant when medically appropriate. Frequency: daily 3-5 times per week as determined by the patient's medical stability, tolerance to activity and progression of functional activities Intensity: 15-30 minutes per session Duration: During hospitalization Interventions may include:Therapeutic exercises, Therapeutic activities and Gait training Patient/family education: Discharge planning, Recommendations, Role of physical therapy/rehabilitation, Safety Further Data: Recommended Discharge Destination: Home with is feasible if patients mobility continues to improve. Recommended Discharge Services: Physical therapy follow-up per physician Recommended Equipment Needs: To be determined if patient needs Rolling Walker Other recommendations: No other consults recommended at this time Pager: [phone] Antonia Rod, PT 12/14/2011 13:56 * Hugo Hicks MD - 12/14/2011 0735 EDT Orthopaedic Spine Daily Progress Note POD#1 s/p ASF/PSF L3-S1 with Dr. Ny on 12/13/2011. S: Pain controlled. No nausea, vomiting, chest pain or shortness of breath. No flatus. Blood pressure 109/55, pulse 99, temperature 37 ??C (98.6 ??F), temperature source Tympanic, resp. rate 16, height 154.9 cm (61), weight 68.04 kg (150 lb), SpO2 100.00%. Gen: NAD Lungs: breathing non-labored Heart: no cyanosis Back: dressing holding suction, drain removed BLE 4+/5 GS/TA/EHL/FHL LTSI dp/sp/t 2+ DP pulse Skin warm and well perfused X-rays: will order once mobilizing BUN/Cr/glu/ALT/AST/amyl/lip: 13/0.74/--/--/--/--/-- (12/13 524) Na/K/Cl/CO2: 139/5.3/103/33 (12/13 524) A/P: 51 y.o. female POD#1 s/p above. Doing well. ?? Pain control: as ordered ?? Weight bearing: as tolerated ?? Category A ?? PT consulted ?? Diet: NPO until flatus ?? Post op antibiotics: as ordered x 24 hours ?? DVT: SCDs, mobilize ?? Dispo: pending uprights, boateng out, mobilizing, pain controlled HUGO HICKS MD * Anusha Steele RN - 12/13/2011 1626 EDT Pt has done well in PACU. Aroused to c/o pain- medicated with 100 fentanyl and 1 mg dilaudid with excellent results post preop pain protocol and 0.2 duramorph. and cheerfully interacting withhim once pain well controlled. Beverly ice chips. Report to Myles Cabrera RN. * Jalyn Montano RN - 12/13/2011 0902 EDT Pain protocol given, o2 sat on her finger, spo2 99-100%. * Brianda Severino RN - 12/03/2011 1523 EDT Sunshine Pleitez has been instructed as follows regarding medication administration for the day of the scheduled procedure. Date of Surgery: 12-13-11 Instructions for Taking Medications Day of Surgery Medication Last Dose Hold DOS Take DOS gabapentin (NEURONTIN) 100 mg capsule yes calcium-vitamin D (OS-CHAR D) 500 mg(1,250mg) -200 unit per tablet x cetirizine (ZYRTEC) 10 mg tablet Yes omeprazole (PRILOSEC) 20 mg capsule Yes acetaminophen (TYLENOL) 500 mg tablet Yes mupirocin calcium (BACTROBAN NASAL) 2 % nasal ointment x CALCIUM CARBONATE (TUMS CALCIUM FOR LIFE BONE ORAL) x venlafaxine (EFFEXOR-XR) 150 mg XR capsule x valACYclovir (VALTREX) 500 mg tablet x gabapentin (NEURONTIN) 300 mg capsule x RED YEAST RICE EXTRACT ORAL Last dose 12/07/11 x DOXYLAMINE SUCCINATE (UNISOM ORAL) IBUPROFEN ORAL Last dose 12/07/11 x MULTIVITS W-CA,FE,OTHER MIN (WOMEN'S DAILY FORMULA ORAL) x documented in this encounter H&P Notes * JAVA SWING DEVELOPER, SCAN 2 - 12/20/2011 1000 EDT * Felipe Ny MD - 12/13/2011 0859 EDT The preoperative history and physical which was performed within 30 days of this procedure has been reviewed and the clinically appropriate elements of the physical examination have been repeated. 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 Pt stated, Yes. How did you get your nasal medication? Pt stated, It was picked up from the pharmacy. Scrub brushes/shower/bottle of soap: What did you do? Pt stated, Five days before today and this morning, I washed with the soap from my neck down, not my face, in the front and the back, all the way to my toes. Who helped you? Pt stated, My , we'll have been for a year in March, helped me onthe back side. Nasal medication: What did you do? Pt stated, I stuck the tip and squeezed a little bit in the tip of each nostril and rubbed both together like this. Patient demonstrated using her thumb and index finger on eitherside of her nose, rubbing them together. When asked if she was instructed to use a Q-Tip, she replied, Now that you mention it, Anusha didtell me, but it was easy just to squeeze the tip directly. How often did you use it? Pt stated,I started the ointment five days before, the same as with the soap. Did you have any problems? Pt stated, No, as long as not using the Q-tip is okay. documented in this encounter OR Notes * OR PreOp - JAVA SWING DEVELOPER, SCAN 2 - 12/20/2011 1000 EDT * OR Surgeon - Felipe Ny MD - 12/14/2011 0931 EDT OPERATIVE REPORT SERVICE DATE: 12/13/2011 PREOPERATIVE DIAGNOSIS: L3, L4 and L5 isthmic spondylolisthesis with foraminal stenosis. POSTOPERATIVE DIAGNOSIS: L3, L4 and L5 isthmic spondylolisthesis with foraminal stenosis. PROCEDURE: Anterior diskectomy and interbody fusion L3-4, L4-5, L5-S1, with structural allograft and allograft chips; posterior L3, L4, L5 laminectomy; L2 and S1 laminotomy; bilateral foraminal decompression L3-4, L4-5, L5-S1; L3-S1 posterolateral fusion with local autograft, allograft chips, pedicle screws. SURGEON: Felipe Ny MD [employer] BUSINESS OBJECTS DEVELOPER: Jorge Hicks MD ANESTHESIA: General. ESTIMATED BLOOD LOSS: 100 mL. INDICATIONS: The patient is a 51-year-old woman with back and right thigh pain unresponsive to multiple nonoperative measures including physical therapy, oral steroids, neuroleptics, anti-inflammatories, injections. After understanding the options as well as risks and complications she elected to pursue surgical intervention Radiographs demonstrated L3, L4 and L5 isthmic defects with an L3-4 spondylolisthesis, L4-5 spondylolisthesis, and an L5-S1, 5% to 10% slip. COMPLICATIONS: None. NARRATIVE: The patient was brought to the operating room. After successful induction of general anesthesia she was placed supine on a well-padded operating room table. Eyes, ears, nose, shoulders, elbows, hands, genitals, feet and knees were all protected with no compression. She was prepped and draped in a sterile fashion. A longitudinal incision was made on the anterior aspect of her abdomen, carried sharply down through skin, subcutaneous tissue. The rectus fascia incised longitudinally, rectus retracted to the left. Blunt dissection carried out in the retroperitoneal space. Omni retractorused to retract tissues. The center sacral artery was identified, ligated and dissected. Blunt dissection carried out over the disk space, marker placed at the L5-S1 disk space and a lateral x-ray taken confirming our position. Then a 15 blade was used to incise the annulus, Leksell used to remove the annulus material. Straight and angled curettes and pituitary used to extract disk material and endplate. Sequential sizing placed and a 13 mm structural allograft was impacted into position, and allograft chips packed laterally. Attention was then turned to L3-4 and L4-5. The annulus was incised, a pituitary used to remove the outer annular material and disk material. Straight and angled curettes used to remove cartilaginous endplate, which was extracted with pituitaries. Then sequential sizing with paddles and spacers was performed. An 11 mm graft was impacted at L4-5, and an 11 mm graft at L3-4 with allograft chips packed posterolaterally. The wound was closed in layers with #1 PDS, 2-0 Vicryl and francisco j. Sterile gauze dressing placed. The patient was turned prone on a well-padded Caleb table. Eyes, ears, nose, shoulders, elbows, hands, genitals, feet and knees were all protected with no compression. She was prepped and draped in a sterile fashion. Midline longitudinal incision was made in line with her lumbar spine, carried sharply down through skin, subcutaneous tissue. Subperiosteal dissection carried out to the tips of the transverse processes of L3 to the sacral ala. A marker was placed on the L5 spinous process and a lateral x-ray taken confirming our position. A Leksell was then used to remove the spinous process of L3, L4 and L5. Small, medium and large Kerrisons used to complete an L3 laminectomy, L4 laminectomy, L5 laminectomy, L2 and S1 laminotomy, bilateral lateral recess and foraminal decompressions at L3-4, L4-5 and L5-S1, following which the dura and nerve roots were completely free and unroofed with no residual compression. Attention was turned tothe pedicles, which were entered on the posterior aspect with a 4 mm carbide manuel sounded with a Steffee probe. A 6 x 45 mm screw was placed at L3, L4, L5. A 7 x 40 mm screw was placed at S1. Rasp was placed over the screw heads, sleeves placed, lordotic contoured rods placed in the sleeves, and nuts applied and tightened. Posterolateral elements were decorticated. Corticocancellous autograft obtained from local bone after being packed through the bone mill was packed posterolaterally over the transverse processes at the interspaces of L3-4, L4-5, L5-S1. Allograft chips were then placed stacker straightener olaterally over the transverse processes at the interspaces of L3-4, L4-5, L5- S1. Then 0.2 mL of Duramorph was injected in the subarachnoid space. The wound irrigated copiously with bacitracin irrigation. Two grams of vancomycin powder sprinkled through the wound. Hemovac drain placed in the wound,the wound closed in layers with #1 Vicryl, 2-0 Vicryl, 0 Prolene popoff vertical mattress sutures, francisco j. Sterile gauze dressing was placed. The patient was then transferred to the recovery room [facility]. Unless otherwise noted, there were no complications, no blood loss, no cultures obtained, no specimens removed, and no drains retained. Felipe Ny MD 01 55 PM / Felipe Ny MD Confirmation: [id number] Dictation ID: [id number] * Anesthesia Procedure Notes - JAVA SWING DEVELOPER, SCAN 2 - 12/13/2011 1433 EDT * OR PreOp - JAVA SWING DEVELOPER, SCAN 2 - 12/13/2011 1422 EDT * Anesthesia Preprocedure Evaluation - JAVA SWING DEVELOPER, SCAN 2 - 12/13/2011 0927 EDT documented in this encounter Miscellaneous Notes * Scanned Note-Null - JAVA SWING DEVELOPER, SCAN 2 - 12/20/2011 1000 EDT * Scanned Note-Null - JAVA SWING DEVELOPER, SCAN 2 - 12/20/2011 1000 EDT * Scanned Note-Null - JAVA SWING DEVELOPER, SCAN 2 - 12/20/2011 1000 EDT * Plan of Care - Amrik Zaragoza RN - 12/17/2011 0517 EDT Problem: PAIN Goal: Patient???s Pain And Discomfort Are Adequately Managed Active Multi-Disciplinary problems: HOSPITAL ORIENTATION/SAFETY [008451] (12/13/11) HEMODYNAMIC STATUS [809706] (12/15/11) PAIN [649067] (12/15/11) CIRCULATORY STATUS [742815] (12/15/11) FLUID AND ELECTROLYTE BALANCE [878383] (12/15/11) RESPIRATORY FUNCTION/OXYGENATION [008180] (12/15/11) NUTRITION/DIET [335410] (12/15/11) MOBILITY [594430] (12/15/11) ELIMINATION [090236] (12/15/11) Data: Pt reports pain to back incision at 11/20 at 2355. Action: Pt repositioned. Surgical site assessed. Wound vac dsg CDI. Wound vac to continuous suction. Medicated with Oxycodone IR 15 mg and scheduled APAP 650mg Response: Pt found sleeping comfortably 30 min after administration. Pt slept well through shift. Amrik Zaragoza RN 12/17/2011 5:13 * Plan of Care - Nilson Terrell. - 12/16/2011 1432 EDT Problem: ELIMINATION Goal: Patient???s Usual Bowel Function Is Maintained Outcome: Completed Date Met: 12/16/11 Active Multi-Disciplinary problems: HOSPITAL ORIENTATION/SAFETY [549269] (12/13/11) HEMODYNAMIC STATUS [258099] (12/15/11) PAIN [718998] (12/15/11) CIRCULATORY STATUS [586873] (12/15/11) FLUID AND ELECTROLYTE BALANCE [683811] (12/15/11) RESPIRATORY FUNCTION/OXYGENATION [446131] (12/15/11) NUTRITION/DIET [136754] (12/15/11) MOBILITY [803285] (12/15/11) ELIMINATION [266420] (12/15/11) Data: Patient POD 3 s/p 'Anterior diskectomy and interbody fusion L3-4, L4-5, L5-S1, with structural allograft and allograft chips; posterior L3, L4, L5 laminectomy; L2 and S1 laminotomy; bilateral foraminal decompression L3-4, L4-5, L5-S1; L3-S1 posterolateral fusion with local autograft, allograft chips, pedicle screws.' Patient denies nausea and is tolerating PO intake well. Patient has not had a BM since pre-op. Abdomen is distending, mildly tender, bowel sounds active, + flatus. Action: Bisacodyl suppository and colace adminstered per MD order. Response: Patient had a large soft formed BM this morning. Nilson Terrell RN 12/16/2011 14:21 * Plan of Care - Anna Keyes - 12/16/2011 0436 EDT Problem: CIRCULATORY STATUS Goal: Patient Has Stable Vital Signs And Fluid Balance Active Multi-Disciplinary problems: HOSPITAL ORIENTATION/SAFETY [452733] (12/13/11) HEMODYNAMIC STATUS [105618] (12/15/11) PAIN [474744] (12/15/11) CIRCULATORY STATUS [443497] (12/15/11) FLUID AND ELECTROLYTE BALANCE [700022] (12/15/11) RESPIRATORY FUNCTION/OXYGENATION [290350] (12/15/11) NUTRITION/DIET [083224] (12/15/11) MOBILITY [353898] (12/15/11) ELIMINATION [598573] (12/15/11) Data: Patient's VS at 0204: T 38.1, RR 20, BP 115/56, P 121, O2 83% on RA. Patient's baseline mild tachycardia. Action: Patient put on 2L NC, acetaminophen given 0100. MD Beny Arriaga informed. Response: On reassessment, patient's O2 97% and Pulse at 107. Will continue to monitor. Anna Keyes RN 12/16/2011 4:31 * Plan of Care - Kiana Guthrie RN - 12/15/2011 1429 EDT Problem: NUTRITION/DIET Goal: Nutrional Status Is Stable Or Improving Outcome: Ongoing Active Multi-Disciplinary problems: HOSPITAL ORIENTATION/SAFETY [064364] (12/13/11) HEMODYNAMIC STATUS [860541] (12/15/11) PAIN [285350] (12/15/11) CIRCULATORY STATUS [985312] (12/15/11) FLUID AND ELECTROLYTE BALANCE [750507] (12/15/11) RESPIRATORY FUNCTION/OXYGENATION [886821] (12/15/11) NUTRITION/DIET [839911] (12/15/11) MOBILITY [215681] (12/15/11) ELIMINATION [100521] (12/15/11) Data: Patient NPO this morning. Abd with dressing CDI. Some distention noted per patient. Passing flatus. Action: Diet changed to clear liquids. Patient ambulated in hallway with walker and one assist. Response: Tolerated clears for lunch. Denies nausea. Call pak in reach. Kiana Guthrei RN 12/15/2011 14:27 * Plan of Care - Holly Norris - 12/15/2011 0316 EDT Problem: HEMODYNAMIC STATUS Goal: Patient Has Stable VS & Fluid Balance Outcome: Ongoing Data: Pt temp 38.6 @ 2200 VS. Pt reported feeling warm and has night hot flashes. Lungs slightly diminished. Action: Administered Tylenol @ 2300. Encouraged use of spirometer x10/hour, pt able to perform to 1750. Response: Pt temp currently 37.7. Pt reports feeling comfortable. Will continue to assess. Holly Norris RN 12/15/2011 3:12 * Plan of Care - Jude Lindsey RN - 12/14/2011 1527 EDT Problem: HOSPITAL ORIENTATION/SAFETY Goal: Free From Accidental Injury Active Multi-Disciplinary problems: HOSPITAL ORIENTATION/SAFETY [056152] (12/13/11) Data:BP 113/61 Pulse 99 Temp(Src) 38.4 ??C (101.1 ??F) (Tympanic) Resp 16 Ht 154.9 cm (61) Wt 68.04 kg (150 lb) BMI 28.34 kg/m2 SpO2 96% Patient feeling of dizziness, nausea, and felt like she was going to pass out, while up attempting to ambulate. See above temp as well. Action: Beny Gutierrez MD, Resident production zone leader, notified. Patient returned back to bed. Will re check VSper request of .BP 115/55 Pulse 96 Temp(Src) 38 ??C (100.4 ??F) (Tympanic) Resp 16 Ht 154.9 cm (61) Wt 68.04 kg (150 lb) BMI 28.34 kg/m2 SpO2 96% Patient encouraged to use IS, and got it up to 1750. Response: No further issues noted. Call light in reach safety maintained. Jude Lindsey RN 12/14/2011 14:52 * Anesthesia Post-Eval - Zackery Casillas CRNA - 12/14/2011 1331 EDT Post Anesthesia Evaluation Date of Service: 12/14/2011 The patient has been evaluated and assessed. If present, post anesthetic events are documented below. The last set of recorded vital signs and pain rating were reviewed: Temp: 38.4 ??C (101.1 ??F) (12/14/11 1321), BP: 113/61 mmHg (12/14/11 1321), Resp: 16 (12/14/11 1321), SpO2: 96 % (12/14/11 1321),Numeric Pain Level (Scale 1-10): 4 Procedure detail: Anesthesia Type: General Level of Consciousness: Awake;Oriented Vital Signs: Stable Post Op Pain: Taking PO/IV pain meds with good effect Additional follow up needed: No Perioperative events: General Events: None Zackery Casillas CRNA 12/14/2011 13:32 * Plan of Care - Antoinette Tidwell - 12/13/2011 1953 EDT Problem: HOSPITAL ORIENTATION/SAFETY Goal: Remain Free From S&S Of Infection Pt arrived to unit at 1755, VSS. Prevena dsg on back is CDI. Abdominal dsg is dry and intact w/ scant strikethrough drainage. +CSMT's. Pt rates pain approximately 5/10 but has been laughing and smiling. Medicated w/ 5 mg oxy IR and scheduled tylenol. is at the bedside. * Brief Op Note - Hugo Hicks MD - 12/13/2011 0986 EDT BRIEF OP NOTE Diagnosis: lumbar degenerative disease Procedure: ASF L3-S1, PSF and decompression L3-S1 Surgeon: Dayan Manager Grant: Dona Anesth: general Findings: Lumbar stenosis EBL: 150 cc IVF: 3000 cc UOP: 225 cc Tourniquet time: 0 minutes Specimen: none Cultures: none Foreign Material Retained: Interbody grafts, pedicle screws, rods, suture Complications: none Dispo: PACU then floor HUGO HICKS MD * Scanned Note-Null - JAVA SWING DEVELOPER, SCAN 2 - 12/13/2011 0753 EDT * Scanned Note-Null - JAVA SWING DEVELOPER, SCAN 2 - 12/13/2011 0753 EDT documented in this encounter Plan of Treatment Upcoming Encounters Date Type Department Care Team (Late st Contact Info) Description 04/02/2024 10:30 EDT Appointment [facility] Interventional Radiology Unit [address] [place] [id number] 04/02/2024 15:15 EDT Office Visit [facility] Surgical Oncology - [facility] [address] [place], [place] [phone] Adolfo Carreno MD [address] [facility], [address] [place] [phone] 04/05/2024 9:30 EDT Telemedicine [facility] - [facility] Palliative Care Services [address], [place] [phone] Chichi Woods MD 111 [facility] [address] [place] [phone] 04/11/2024 15:00 EDT Telemedicine [facility] - [address] [id number] Alisson Carreon MD [address] [place] [address] 2 [place] [phone] 04/13/2024 13:30 EDT Appointment [facility] - [address] [phone] 04/13/2024 14:00 EDT Appointment [facility] - [address] [phone] 04/16/2024 10:00 EST Telemedicine [facility] - [facility] Palliative Care Services [address] [place] [address] [phone] Chichi Woods MD [address] [place] [phone] 04/24/2024 9:00 EST Appointment [facility] Radiology CT Outpatient - [address] [id number] 04/24/2024 11:00 EST Appointment [facility] Breast Imaging - [address] [phone] 04/27/2024 12:00 EST Appointment [facility] - [address] [phone] 05/02/2024 15:00 EST Telemedicine [facility] - [address] [phone] Alisson Carreon MD [address] [place] [address], [facility] [address] [place] [phone] 05/04/2024 10:15 EST Ancillary Procedure [facility] Cardiology [place] [phone] 05/04/2024 11:30 EST Appointment [facility] - [address] [phone] 05/04/2024 12:00 EST Appointment [facility] - [address] [id number] 06/12/2024 13:00 EST Appointment [facility] Radiology CT - [address] [id number] documented as of this encounter Procedures Procedure Name Priority Date/Time Associated Diagnosis Comments IMPLANT RECORD - SCANNED 12/20/2011 10:00 EDT ECG REPORT - SCANNED 12/20/2011 10:00 EDT COMPLETE BLOOD COUNT AND DIFFERENTIAL Routine 12/16/2011 5:10 EDT BUN Routine 12/16/2011 5:10 EDT CREATININE Routine 12/16/2011 5:10 EDT ELECTROLYTES Routine 12/16/2011 5:10 EDT L SPINE 2-3 VIEWS Routine 12/15/2011 13: 28 EDT COMPLETE BLOOD COUNT AND DIFFERENTIAL Routine 12/15/2011 5:22 EDT BUN Routine 12/15/2011 5:22 EDT CREATININE Routine 12/15/2011 5:22 EDT ELECTROLYTES Routine 12/15/2011 5:22 EDT COMPLETE BLOOD COUNT AND DIFFERENTIAL Routine 12/14/2011 5:30 EDT SCREENING GLUCOSE Routine 12/14/2011 5:2 5 EDT BUN Routine 12/14/2011 5:25 EDT CREATININE Routine 12/14/2011 5:25 EDT ELECTROLYTES Routine 12/14/2011 5:25 EDT PORTABLE ABDOMEN 1 VIEW Routine 12/13/2011 14:16 EDT L SPINE 1 VIEW Routine 12/13/2011 13:34 EDT L SPINE 1 VIEW STAT 12/13/2011 12:17 EDT PORTABLE ABDOMEN 1 VIEW STAT 12/13/2011 11:42 EDT L SPINE 1 VIEW STAT 12/13/2011 10:44 EDT GLUCOSE, GLUCOMETER Routine 12/13/2011 9 :12 EDT PREPARE RED BLOOD CELLS Routine 12/13/2011 8:31 EDT PREPARE RED BLOOD CELLS Routine 12/13/2011 8:31 EDT TYPE AND SCREEN Routine 12/13/2011 8:31 EDT SURGICAL MRSA/MSSA Routine 12/13/2011 8: 30 EDT documented in this encounter Results * ECG REPORT - SCANNED (12/20/2011 10:00 EDT) 12/20/2011 10:0 0 EDT Narrative Transcriptions JAVA SWING DEVELOPER, SCAN 2 - 12/20/2011 10:00 EDT Scan 2 Wafer Production Worker PROCEDURE/MINOR AJ GICAL ORDERABLES * IMPLANT RECORD - SCANNED (12/20/2011 10:00 EDT) 12/20/2011 10:0 0 EDT Narrative Transcriptions JAVA SWING DEVELOPER, SCAN 2 - 12/20/2011 10:00 EDT Scan 2 Wafer Production Worker PROCEDURE/MINOR AJ GICAL ORDERABLES * CREATININE (12/16/2011 5:10 EDT) Creatinine 0.57 0.52 - 1.04 mg/dl [facility] GFR, Calculated >60 >60 ml/min/1.7 3m2 [facility] 12/16/2011 5:10 EDT 12/16/2011 6:05 EDT Hugo Hicks MD CHEMISTRY & BLOOD GA S ORDERABLES [facility] [address] [place] [address] * (ABNORMAL) HEMAGRAM AND DIFFERENTIAL (12/16/2011 5:10 EDT) WBC 12.22 4.0 - 12.4 K/cmm [facility] RBC 2.51(L) 3.86 - 5.04 M/cmm [facility] Hemoglobin 8.4(L) 11.6 - 15.2 gm/dl [facility] HCT 24.6(L) 34.9 - 44.4 % [facility] MCV 98 81 - 98 fl [facility] MCH 33.4(H) 26.7 - 33.3 pg [facility] MCHC 34.1 32.1 - 35.9 gm/dl [facility] PLT 198 141 - 320 K/cmm [facility] RDW-CV 12.9 11.7 - 14.6 % [facility] Neutrophils 79.0 45.5 - 79.7 % [facility] % Bands 1.0 % [facility] Lymphocytes 12.0(L) 15.0 - 46.8 % [facility] Monocytes 7.0 1.8 - 12.0 % [facility] % Myelocytes 1.0 % [facility] ABS Neutrophils 9.65(H) 2.20 - 8.85 K/cmm [facility] ABS Bands 0.12 K/cmm [facility] ABS Lymphs 1.47 1.09 - 3.30 K/cmm [facility] ABS Monocytes 0.86(H) 0.1 - 0.8 K/cmm [facility] ABS Myelocytes 0.12 K/cmm [facility] RBC Morphology Normal [facility] Type of Diff: Manual [facility] 12/16/2011 5:10 EDT 12/16/2011 6:05 EDT Hugo Hicks MD PACKAGES & DNA PROBE ORDERABLES Performing Organization Address [facility] Co de Phone Number [facility] [address] [place] [address] * BUN (12/16/2011 5:10 EDT) BUN 12 10 - 26 mg/dl [facility] 12/16/2011 5:10 EDT 12/16/2011 6:05 EDT Hugo Hicks MD CHEMISTRY & BLOOD GA S ORDERABLES Performing Organization Address [facility] de Phone Number [facility] [address] [place] [address] * ELECTROLYTES (12/16/2011 5:10 EDT) Sodium 137 136 - 145 mEq/L [facility] Potassium 4.1 3.5 - 5.0 mEq/L [facility] Chloride 100 96 - 110 mEq/L [facility] CO2 30 24 - 32 mEq/L [facility] Blood specimen (specimen) 12/16/2011 5:10 EDT 12/16/2011 6:05 EDT Hugo Hicks MD CHEMISTRY & BLOOD GA S ORDERABLES Performing Organization Address [facility] Co de Phone Number [facility] [address] [place] [address] * L SPINE 2-3 VIEWS (12/15/2011 13:28 EDT) Anatomical Region Laterality Modality Other 12/15/2011 13:2 8 EDT 12/15/2011 18:35 EDT Narrative 12/15/2011 18:35 EDT L SPINE 2-3 VIEWS ??Dec 15, 2011 01:28:00 PM Signs and Symptoms: ??AP and lateral films centered on L5-S1 s/p ASF/PSF, to check alignment with gravity, need to be upright Comparison: KUB dated 12/13/2011, lateral from the same date and CT lumbar spine dated 11/25/2011. Findings: The patient is status post anterior and posterior spinal fusion from L3 through S1. Pedicle screws and posterior fixation rods are present in the pedicles and vertebral bodies of the aforementioned vertebrae. In addition, intervertebral graft material is present, as is lateral bone graft material. Surgical francisco j are present at midline both anteriorly and posteriorly. Metallic clips located just anterior to the lumbar spine are likely vascular. A calcific density in the deep pelvis on the right is likely a fibroid. Alignment appears unchanged from earlier studies. I have personally reviewed the images and the above interpretation and agree with the findings. Procedure Note Ezequiel Arellano MD - 12/15/2011 L SPINE 2-3 VIEWS Dec 15, 2011 01:28:00 PM Signs and Symptoms: AP and lateral films centered on L5-S1 s/p ASF/PSF, to check alignment with gravity, need to be upright Comparison: KUB dated 12/13/2011, lateral from the same date and CT lumbar spine dated 11/25/2011. Findings: The patient is status post anterior and posterior spinal fusion from L3 through S1. Pedicle screws and posterior fixation rods are present in the pedicles and vertebral bodies of the aforementioned vertebrae. In addition, intervertebral graft material is present, as is lateral bone graft material. Surgical francisco j are present at midline both anteriorly and posteriorly. Metallic clips located just anterior to the lumbar spine are likely vascular. A calcific density in the deep pelvis on the right is likely a fibroid. Alignment appears unchanged from earlier studies. I have personally reviewed the images and the above interpretation and agree with the findings. Hugo Hicks MD [facility] ORDERABLES * CREATININE (12/15/2011 5:22 EDT) Creatinine 0.69 0.52 - 1.04 mg/dl [facility] GFR, Calculated >60 >60 ml/min/1.7 3m2 [facility] 12/15/2011 5:22 EDT 12/15/2011 6:17 EDT Hugo Hicks MD CHEMISTRY & BLOOD GA S ORDERABLES Performing Organization Address [facility] Co de Phone Number [facility] [address] [place] [address] * BUN (12/15/2011 5:22 EDT) Pathologist [facility] BUN 13 10 - 26 mg/dl [facility] 12/15/2011 5:22 EDT 12/15/2011 6:17 EDT Hugo Hicks MD CHEMISTRY & BLOOD GA S ORDERABLES Performing Organization Address [facility] Co de Phone Number [facility] [address] [place] [address] * (ABNORMAL) HEMAGRAM AND DIFFERENTIAL (12/15/2011 5:22 EDT) Pathologist [facility] WBC 16.75(H) 4.0 - 12.4 K/cmm [facility] RBC 2.80(L) 3.86 - 5.04 M/cmm [facility] Hemoglobin 9.5(L) 11.6 - 15.2 gm/dl [facility] HCT 27.6(L) 34.9 - 44.4 % [facility] MCV 98 81 - 98 fl [facility] MCH 33.7(H) 26.7 - 33.3 pg [facility] MCHC 34.3 32.1 - 35.9 gm/dl [facility] PLT 225 141 - 320 K/cmm [facility] RDW-CV 12.8 11.7 - 14.6 % [facility] Neutrophils 80.0(H) 45.5 - 79.7 % [facility] % Bands 1.0 % [facility] Lymphocytes 10.0(L) 15.0 - 46.8 % [facility] Monocytes 6.0 1.8 - 12.0 % [facility] % Myelocytes 3.0 % [facility] ABS Neutrophils 13.39(H) 2.20 - 8.85 K/cmm [facility] ABS Bands 0.17 K/cmm [facility] ABS Lymphs 1.68 1.09 - 3.30 K/cmm [facility] ABS Monocytes 1.01(H) 0.1 - 0.8 K/cmm [facility] ABS Myelocytes 0.50 K/cmm [facility] RBC Morphology Normal [facility] Type of Diff: Manual [facility] Blood specimen (specimen) 12/15/2011 5:22 EDT 12/15/2011 6:26 EDT Hugo Hicks MD PACKAGES & DNA PROBE ORDERABLES Performing Organization Address [facility] de Phone Number [facility] [address] [place] [address] * ELECTROLYTES (12/15/2011 5:22 EDT) Sodium 139 136 - 145 mEq/L [facility] Potassium 4.6 3.5 - 5.0 mEq/L [facility] Chloride 103 96 - 110 mEq/L [facility] CO2 27 24 - 32 mEq/L [facility] Blood specimen (specimen) 12/15/2011 5:22 EDT 12/15/2011 6:17 EDT Hugo Hicks MD CHEMISTRY & BLOOD GA S ORDERABLES Performing Organization Address [facility] Co de Phone Number [facility] [address] [place] [address] * (ABNORMAL) HEMAGRAM AND DIFFERENTIAL (12/14/2011 5:30 EDT) WBC 11.96 4.0 - 12.4 K/cmm [facility] RBC 3.06(L) 3.86 - 5.04 M/cmm [facility] Hemoglobin 10.1(L) 11.6 - 15.2 gm/dl [facility] HCT 30.1(L) 34.9 - 44.4 % [facility] MCV 98 81 - 98 fl [facility] MCH 33.1 26.7 - 33.3 pg [facility] MCHC 33.7 32.1 - 35.9 gm/dl [facility] PLT 227 141 - 320 K/cmm [facility] RDW-CV 13.2 11.7 - 14.6 % [facility] % Neutrophils 70.4 45.5 - 79.7 % [facility] % Lymphocytes 19.1 15.0 - 46.8 % [facility] % Monocytes 10.1 1.8 - 12.0 % [facility] % Eosinophils 0.1(L) 0.6 - 6.9 % [facility] % Basophils 0.3 0.2 - 1.4 % [facility] ABS Neutrophils 8.42 2.20 - 8.85 K/cmm [facility] ABS Lymphs 2.28 1.09 - 3.30 K/cmm [facility] ABS Monocytes 1.21(H) 0.1 - 0.8 K/cmm [facility] ABS Eosinophils 0.01(L) 0.03 - 0.61 K/cmm [facility] ABS Basophils 0.03 0.01 - 0.11 K/cmm [facility] Type of Diff: Automated [facility] Blood specimen (specimen) 12/14/2011 5:30 EDT 12/14/2011 6:55 EDT Hugo Hicks MD PACKAGES & DNA PROBE ORDERABLES [facility] [address] [place] [address] * CREATININE (12/14/2011 5:25 EDT) Creatinine 0.74 0.52 - 1.04 mg/dl [facility] GFR, Calculated >60 >60 ml/min/1.7 3m2 [facility] 12/14/2011 5:25 EDT 12/14/2011 6:48 EDT Hugo Hicks MD CHEMISTRY & BLOOD GA S ORDERABLES Performing Organization Address [facility] Co de Phone Number [facility] [address] [place] [address] * (ABNORMAL) ELECTROLYTES (12/14/2011 5:25 EDT) Sodium 139 136 - 145 mEq/L [facility] Potassium 5.3(H) 3.5 - 5.0 mEq/L [facility] Chloride 103 96 - 110 mEq/L [facility] CO2 33(H) 24 - 32 mEq/L [facility] 12/14/2011 5:25 EDT 12/14/2011 6:48 EDT Hugo Hicks MD CHEMISTRY & BLOOD GA S ORDERABLES Performing Organization Address [facility] Co de Phone Number [facility] [address] [place] [address] * BUN (12/14/2011 5:25 EDT) BUN 13 10 - 26 mg/dl [facility] 12/14/2011 5:25 EDT 12/14/2011 6:48 EDT Hugo Hicks MD CHEMISTRY & BLOOD GA S ORDERABLES Performing Organization Address [facility] de Phone Number [facility] [address] [place] [address] * SCREENING GLUCOSE (12/14/2011 5:25 EDT) Glucose, Screening 90 70 - 100 mg/dl [facility] Blood specimen (specimen) 12/14/2011 5:25 EDT 12/14/2011 6:48 EDT Hugo Hicks MD CHEMISTRY & BLOOD GA S ORDERABLES Performing Organization Address [facility] Co de Phone Number [facility] [address] [place] [address] * PORTABLE ABDOMEN 1 VIEW (12/13/2011 14:16 EDT) Anatomical Region Laterality Modality Other 12/13/2011 14:1 6 EDT 12/13/2011 14:39 EDT Narrative 12/13/2011 14:39 EDT PORTABLE ABDOMEN 1 VIEW ??December 13, 2011 02:16:00 PM Clinical History/Comments: L-spine arthrodesis, S/P L3-S1 spinal fusion, routine postop for number count. Single view abdomen. Two hours prior. Four pedicle screws and two rods along with intervertebral bone graft material has been placed. Multiple surgical skin francisco j are seen along with an epidural catheter. No instrument foreign bodies are seen. Procedure Note 12/13/2011 PORTABLE ABDOMEN 1 VIEW December 13, 2011 02:16:00 PM Clinical History/Comments: L-spine arthrodesis, S/P L3-S1 spinal fusion, routine postop for number count. Single view abdomen. Two hours prior. Four pedicle screws and two rods along with intervertebral bone graft material has been placed. Multiple surgical skin francisco j are seen along with an epidural catheter. No instrument foreign bodies are seen. Felipe Ny MD IMG DIAGNOSTIC I MAGING ORDERABLES * L SPINE 1 VIEW (12/13/2011 13:34 EDT) Anatomical Region Laterality Modality Other 12/13/2011 13:3 4 EDT 12/13/2011 14:40 EDT Narrative 12/13/2011 14:40 EDT L SPINE 1 VIEW ??December 13, 2011 01:34:00 PM Clinical History/Comments: L-spine arthrodesis, S/P L3-S1 spinal fusion. Lateral view of the lumbar spine shows a posterior fusion from lumbar 3 to the 1st sacral vertebral body. Intervertebral bone blocks are seen and anterolisthesis of lumbar 3 over lumbar 4 and lumbar 4 over lumbar 5 and lumbar 5 over S1 is seen. Procedure Note 12/13/2011 L SPINE 1 VIEW December 13, 2011 01:34:00 PM Clinical History/Comments: L-spine arthrodesis, S/P L3-S1 spinal fusion. Lateral view of the lumbar spine shows a posterior fusion from lumbar 3 to the 1st sacral vertebral body. Intervertebral bone blocks are seen and anterolisthesis of lumbar 3 over lumbar 4 and lumbar 4 over lumbar 5 and lumbar 5 over S1 is seen. Felipe Ny MD [facility] I MAGING ORDERABLES * L SPINE 1 VIEW (12/13/2011 12:17 EDT) Anatomical Region Laterality Modality Other 12/13/2011 12:1 7 EDT 12/13/2011 13:21 EDT Narrative 12/13/2011 13:21 EDT L SPINE 1 VIEW ??Dec 13, 2011 12:17:00 PM Signs and Symptoms/Comments: ??Spondylolisthesis L3-S1 PSF Comparison: One hour prior. Findings: Single lateral intraoperative radiograph of the lumbar spine was obtained. A surgical instrument approaches from the posterior aspect of the patient and projects over the posteroinferior aspect of the L5 spinous process. Dr. Rodriguez discussed the findings of this study with Dr. Ny who concurred with localization at 12:20 on December 13, 2011. I have personally reviewed the images and the above interpretation and agree with the findings. Procedure Note Tammi Rodriguez MD - 12/13/2011 L SPINE 1 VIEW Dec 13, 2011 12:17:00 PM Signs and Symptoms/Comments: Spondylolisthesis L3-S1 PSF Comparison: One hour prior. Findings: Single lateral intraoperative radiograph of the lumbar spine was obtained. A surgical instrument approaches from the posterior aspect of the patient and projects over the posteroinferior aspect of the L5 spinous process. Dr. Rodriguez discussed the findings of this study with Dr. Ny who concurred with localization at 12:20 on December 13, 2011. I have personally reviewed the images and the above interpretation and agree with the findings. Felipe Ny MD [facility] ORDERABLES * PORTABLE ABDOMEN 1 VIEW (12/13/2011 11:42 EDT) Anatomical Region Laterality Modality Other 12/13/2011 11:4 2 EDT 12/13/2011 13:18 EDT Narrative 12/13/2011 13:18 EDT PORTABLE ABDOMEN 1 VIEW ??Dec 13, 2011 11:42:00 AM Signs and Symptoms: ??Spondylolisthesis S/P L3-S1 ASF ?? Routine post op for no count R/O FB Comparison: Lumbar spine CT dated 11/25/2011, and lateral view of the lumbar spine from one hour prior. Findings: No unexpected radiopaque foreign bodies identified. Metallic densities are projecting just to the left of midline are surgical francisco j. Graft material is present in the L3-L4, L4-L5 and L5-S1 intervertebral spaces. Metallic densities projecting over the spine are likely vascular clips. Coarse calcifications seen in the deep pelvis are within a fibroid seen on the earlier lumbar spine CT. ?? Impression: 1. No unexpected radiopaque opaque foreign bodies. I have personally reviewed the images and the above interpretation and agree with the findings. Procedure Note Ezequiel Arellano MD - 12/13/2011 PORTABLE ABDOMEN 1 VIEW Dec 13, 2011 11:42:00 AM Signs and Symptoms: Spondylolisthesis S/P L3-S1 ASF Routine post op for no count R/O FB Comparison: Lumbar spine CT dated 11/25/2011, and lateral view of the lumbar spine from one hour prior. Findings: No unexpected radiopaque foreign bodies identified. Metallic densities are projecting just to the left of midline are surgical francisco j. Graft material is present in the L3-L4, L4-L5 and L5-S1 intervertebral spaces. Metallic densities projecting over the spine are likely vascular clips. Coarse calcifications seen in the deep pelvis are within a fibroid seen on the earlier lumbar spine CT. Impression: 1. No unexpected radiopaque opaque foreign bodies. I have personally reviewed the images and the above interpretation and agree with the findings. Felipe Ny MD IMG DIAGNOSTIC I MAGING ORDERABLES * L SPINE 1 VIEW (12/13/2011 10:44 EDT) Anatomical Region Laterality Modality Other 12/13/2011 10:4 4 EDT 12/13/2011 11:00 EDT Narrative 12/13/2011 11:00 EDT L SPINE 1 VIEW ??Dec 13, 2011 10:44:00 AM Signs and Symptoms/Comments: ??Spondylolisthesis L3-S1 ASF Comparison: CT November 25, 2003. Findings: Single lateral intraoperative radiograph of the lumbar spine was obtained. The surgical instrument projects at the level of the L5-S1 disc space. Dr. Rodriguez discussed the findings of this study with Dr. Ny who concurred with localization at 10:49 on December 13, 2011. I have personally reviewed the images and the above interpretation and agree with the findings. Procedure Note Tammi Rodriguez MD - 12/13/2011 L SPINE 1 VIEW Dec 13, 2011 10:44:00 AM Signs and Symptoms/Comments: Spondylolisthesis L3-S1 ASF Comparison: CT November 25, 2003. Findings: Single lateral intraoperative radiograph of the lumbar spine was obtained. The surgical instrument projects at the level of the L5-S1 disc space. Dr. Rodriguez discussed the findings of this study with Dr. Ny who concurred with localization at 10:49 on December 13, 2011. I have personally reviewed the images and the above interpretation and agree with the findings. Felipe Ny MD [facility] DI[facility]NOST[facility] I MAGING ORDERABLES * GLUCOSE, GLUCOMETER (12/13/2011 9:12 EDT) Glucose, Fingerstick 96 70 - 100 mg/dl [facility] Reading Aide ID [id number] [facility] Comment:Test Performed by [facility] 12/13/2011 9:12 EDT 12/13/2011 9:14 EDT Felipe Ny MD CHEMISTRY & BLOO D GAS ORDERABLES Performing Organization Address [facility] de Phone Number [facility] [address] [place] [address] * TYPE AND SCREEN (12/13/2011 8:31 EDT) ABO O [facility] Rh Factor Positive [facility] Antibody Screen Negative [facility] Comment:SPECIMEN EXPIRES AT 23:59 ON 12/16/2011 12/13/2011 8:31 EDT 12/13/2011 8:31 EDT Felipe Ny MD BLOOD BANK TESTS Performing Organization Address [facility] de Phone Number [facility] [address] [place] [address] * PREPARE RED BLOOD CELLS (12/13/2011 8:31 EDT) Product Code -3 RED BLOOD CELLS,ADENINE- SALINE ADDED,LEUKOCYT ES REDUCED [facility] Donor Number [id number] JEMANUPRosie [facility] ABO O [facility] Rh POS [facility] Cross Match Interp Compatible [facility] Unit Status Released From [facility] 12/13/2011 8:31 EDT 12/13/2011 8:31 EDT Felipe Ny MD BLOOD BANK ORDER ANUSHA Performing Organization Address City/[facility]/ZIP Co de Phone Number [facility] [address] [place] [address] * PREPARE RED BLOOD CELLS (12/13/2011 8:31 EDT) Product Code -3 RED BLOOD CELLS,ADENINE- SALINE ADDED,LEUKOCYT ES REDUCED [facility] Donor Number [id number] WENDI [facility] ABO O [facility] Unit Rh POS [facility] Cross Match Interp Compatible [facility] Unit Status Released From [facility] 12/13/2011 8:31 EDT 12/13/2011 8:31 EDT Felipe Ny MD BLOOD BANK ORDER ANUSHA [facility] [address] [place] [address] * SURGICAL MRSA/MSSA (12/13/2011 8:30 EDT) Specimen Description Nasal [facility] Result No Staphylococcus aureus detected by PCR. [facility] 12/13/2011 8:30 EDT 12/13/2011 9:36 EDT Felipe Ny MD MICROBIOLOGY - G ENERAL ORDERABLES [facility] [address] [place] [address] documented in this encounter Visit Diagnoses Diagnosis Acquired spondylolisthesis Lumbar radicular pain Thoracic or lumbosacral neuritis or radiculitis, unspecified documented in this encounter Administered Medications Inactive Administered Medications - up to 3 most recent administrations Medication Order MAR Action Action Date Dose Rate Site acetaminophen (TYLENOL) tablet 1,000 mg 1,000 mg, oral, PRE-OP ONCE, 1 dose, On Tue12/13/11 at 0930, Routine, Pre Op Day of Surgery Given 12/13/2011 9:24 EDT 1,000 mg acetaminophen (TYLENOL) tablet 1,000 mg 1,000 mg, oral, EVERY 6 HOURS, First dose on Tue12/13/11 at 1815, Until Discontinued, Routine Given 12/17/2011 12:24 EDT 1,000 mg Given 12/17/2011 6:19 EDT 1,000 mg Given 12/16/2011 23:25 EDT 1,000 mg bisacodyl (DULCOLAX) suppository 10 mg 10 mg, rectal, DAILY, 1 dose, First dose on Tue12/16/11 at 0900, Routine, On Unit Given 12/16/2011 8:12 EDT 10 mg calcium-vitamin D (OS-CHAR D) 500 mg(1,250mg) -200 unit per tablet 1 Tab 1 Tablet, oral, 2 TIMES DAILY WITH BREAKFAST & DINNER, First dose on Tue12/13/11 at 1815, Until Discontinued, Routine Given 12/17/2011 8:47 EDT 1 Tablet Given 12/16/2011 18:56 EDT 1 Tablet Given 12/16/2011 8:12 EDT 1 Tablet ceFAZolin (ANCEF) 1,000 mg in sodium chloride 0.9 % 50 mL IVPB 1,000 mg, intravenous, Administer over 30 Minutes, EVERY 8 HOURS, 3 doses, First dose on Tue12/13/11 at 1900, Last dose on Tue12/14/11 at 0800, Routine, On Unit Given 12/14/2011 8:31 EDT 1,000 mg Given 12/14/2011 0:07 EDT 1,000 mg Given 12/13/2011 19:10 EDT 1,000 mg ceFAZolin (ANCEF) syringe 1 g 1 g, intravenous, Administer over 10 Minutes, NOW X1, 1 dose, On Tue12/13/11 at 1330, Routine Given by Other 12/13/2011 13:03 EDT 1 g ceFAZolin (ANCEF) syringe 2 g 2 g, intravenous, Administer over 10 Minutes, PRE-OP ONCE, 1 dose, On Tue12/13/11 at 0930, Routine, Pre Op Day of Surgery Given by Other 12/13/2011 10:03 EDT 2 g DIAZepam (VALIUM) tablet 10 mg 10 mg, oral, PRE-OP ONCE, 1 dose, On Tue12/13/11 at 0930, Routine, Pre Op Day of Surgery Given 12/13/2011 9:25 EDT 10 mg diphenhydrAMINE (BENADRYL) injection 6.25 mg 6.25 mg, intravenous, PRN, 2 doses, Starting on Tue12/13/11 at 1415, Until Tue12/13/11 at 1749, nausea, Routine, Recovery (only) Given 12/13/2011 14:57 EDT 6.25 mg docusate sodium (COLACE) capsule 200 mg 200 mg, oral, 2 TIMES DAILY, First dose on Tue12/13/11 at 2100, Until Discontinued, Routine, On Unit Given 12/17/2011 8:47 EDT 200 mg Given 12/16/2011 20:26 EDT 200 mg Given 12/16/2011 8:13 EDT 200 mg fentanyl citrate (PF) 50 mcg/mL injection 25-100 mcg 25-100 mcg, intravenous, EVERY 5 MIN PRN, Starting on Tue12/13/11 at 1415, Until Tue12/13/11 at 1749, Pain, Routine, Recovery (only) Given 12/13/2011 15 :13 EDT 50 mcg Given 12/13/2011 14:52 EDT 50 mcg gabapentin (NEURONTIN) capsule 200 mg 200 mg, oral, 2 TIMES DAILY BEFORE BREAKFAST & LUNCH, First dose on Tue12/14/11 at 0700, Until Discontinued, Routine Given 12/17/2011 12:24 EDT 200 mg Given 12/17/2011 6:19 EDT 200 mg Given 12/16/2011 12:01 EDT 200 mg gabapentin (NEURONTIN) capsule 600 mg 600 mg, oral, AT BEDTIME, First dose on Tue12/13/11 at 2100, Until Discontinued, Routine Given 12/16/2011 20:26 EDT 60 0 mg Given 12/15/2011 20:50 EDT 600 mg Given 12/14/2011 20:33 EDT 600 mg HYDROmorphone (PF) (DILAUDID) 1 mg/mL injection 0.2-1 mg 0.2-1 mg, intravenous, EVERY 10 MINUTES PRN, Starting on Tue12/13/11 at 1415, Until Tue12/13/11 at 1749, Pain, Routine, Recovery (only) Given 12/13/2011 16 :04 EDT 0.4 mg Given 12/13/2011 15:14 EDT 0.3 mg Given 12/13/2011 14:53 EDT 0.3 mg lactated ringers (LR) infusion at 100 mL/hr, intravenous, CONTINUOUS, Starting on Tue12/13/11 at 0930, Until Tue12/13/11 at 1752, Routine, Pre Op Day of Surgery Rate Documented 12/13/2011 14:55 EDT 100 mL/hr New Bag 12/13/2011 9:10 EDT 100 mL/hr magnesium hydroxide (MILK OF MAGNESIA) 400 mg/5 mL suspension 30 mL 30 mL, oral, AT BEDTIME, 1 dose, First dose on Tue12/15/11 at 2100, Routine, On Unit Given 12/15/2011 21:13 EDT 30 mL morphine (MS CONTIN) CR tablet 15 mg 15 mg, oral, EVERY 12 HOURS, 4 doses, First dose on Tue12/13/11 at 2100, Last dose on Tue12/15/11 at 0900, Routine, On Unit Given 12/15/2011 8:58 EDT 15 mg Given 12/14/2011 20:33 EDT 15 mg Given 12/14/2011 8:33 EDT 15 mg morphine (PF) (DURAMORPH) 1 mg/mL injection 0.2 mg 0.2 mg, intrathecal, NOW X1, 1 dose, On Tue12/13/11 at 1330, Routine Given by Other 12/13/2011 12:57 EDT 0.2 mg oxycodone (OXYCONTIN) CR tablet 20 mg 20 mg, oral, PRE-OP ONCE, 1 dose, On Tue12/13/11 at 0930, Routine, Pre Op Day of Surgery Given 12/13/2011 9:24 EDT 20 mg oxycodone (ROXICODONE) immediate release tablet 5-20 mg 5-20 mg, oral, EVERY 4 HOURS PRN, Starting on Tue12/13/11 at 1752, Until Tue12/17/11 at 1528, Pain, Routine, On Unit Given 12/17/2011 12:24 EDT 15 mg Given 12/17/2011 8:48 EDT 15 mg Given 12/17/2011 3:33 EDT 15 mg pantoprazole (PROTONIX) tablet 40 mg 40 mg, oral, DAILY, First dose on Tue12/14/11 at 0900, Until Discontinued, Routine Given 12/17/2011 8:47 EDT 40 mg Given 12/16/2011 8:13 EDT 40 mg Given 12/15/2011 8:57 EDT 40 mg pregabalin (LYRICA) capsule 150 mg 150 mg, oral, PRE-OP ONCE, 1 dose, On Tue12/13/11 at 0930, Routine, Pre Op Day of Surgery Given 12/13/2011 9:26 EDT 150 mg senna (SENOKOT) tablet 2 Tab 2 Tablet, oral, AT BEDTIME, 2 doses, First dose on Tue12/13/11 at 2100, Last dose on Tue12/14/11 at 2100, Routine, On Unit Given 12/14/2011 20:33 EDT 2 Tablets Given 12/13/2011 21:22 EDT 2 Tablets sodium chloride 0.9 % (NS) infusion at 75 mL/hr, intravenous, CONTINUOUS, Starting on Tue12/14/11 at 1515, Until Tue12/16/11 at 0607, Routine Rate Documented 12/15/2011 8:11 EDT 75 mL/hr New Bag 12/15/2011 3:06 EDT 75 mL/hr New Bag 12/14/2011 15:04 EDT 75 mL/hr valACYclovir (VALTREX) tablet 500 mg 500 mg, oral, DAILY, 8 doses, First dose on Tue12/14/11 at 0900, Last dose on Tue12/21/11 at 0900, Routine Given 12/17/2011 8:47 EDT 500 mg Given 12/16/2011 8:19 EDT 500 mg Given 12/15/2011 8:58 EDT 500 mg venlafaxine (EFFEXOR-XR) XR capsule 150 mg 150 mg, oral, DAILY, First dose on Tue12/14/11 at 0900, Until Discontinued, Routine Given 12/17/2011 8:47 EDT 150 mg Given 12/16/2011 8:13 EDT 150 mg Given 12/15/2011 8:57 EDT 150 mg documented in this encounter Discontinued Medications Medication Sig Discontinue Reason Start Date End Da te IBUPROFEN ORAL Take by mouth as needed. 012 documented as of this encounter Historical Medications * This list may reflect changes made after this encounter. Medication Sig Dispensed Refills Start Date End Date calcium-vitamin D (OS-CHAR D) 500 mg(1,250mg) -200 unit per tablet Take 1 Tablet by mouth 2 times daily with breakfast and dinner. acetaminophen (TYLENOL) 500 mg tablet Take 1,000 mg by mouth every 6 hours as needed. 12/08/2012 omeprazole (PRILOSEC) 20 mg capsule Take 20 mg by mouth daily. 02/01/2012 cetirizine (ZYRTEC) 10 mg tablet Take 10 mg by mouth as needed. 02/01/2012 added in this encounter Active and Recently Administered Medications Times are shown in EDT. Scheduled Medication Order 12/15/2011 12/16/2011 12/17/2011 acetaminophen (TYLENOL) tablet 1,000 mg (CANCELED) 1,000 mg, oral, EVERY 6 HOURS, First dose on Tue12/13/11 at 1815, Until Discontinued, Routine 0622 (Given - Provider: Holly Norris)1204 (Given - Provider: Kiana Guthrie RN)1855 (Given - Provider: Anna Keyes) 0058 (Given - Provider: Anna Keyes)0632 (Given - Provider: Anna Keyes)1201 (Given - Provider: Nilson Terrell)1856 (Given - Provider: Valarie Anderson)2325 (Given - Provider: Amrik Zaragoza RN) 0619 (Given - Provider: Amrik Zaragoza RN)1224 (Given - Provider: Lorenza Barr RN) bisacodyl (DULCOLAX) suppository 10 mg (COMPLETED) 10 mg, rectal, DAILY, 1 dose, First dose on Tue12/16/11 at 0900, Routine, On Unit 0812 (Given - Provider: Nilson Terrell) calcium-vitamin D (OS-CHAR D) 500 mg(1,250mg) -200 unit per tablet 1 Tab (CANCELED) 1 Tablet, oral, 2 TIMES DAILY WITH BREAKFAST & DINNER, First dose on Tue12/13/11 at 1815, Until Discontinued, Routine 0858 (Given - Provider: Kiana Guthrie RN)1653 (Given - Provider: Anna Keyes) 0812 (Given - Provider: Nilson Terrell)1856 (Given - Provider: Valarie Anderson) 0847 (Given - Provider: Lorenza Barr, SHELLEY) docusate sodium (COLACE) capsule 200 mg (CANCELED) 200 mg, oral, 2 TIMES DAILY, First dose on Tue12/13/11 at 2100, Until Discontinued, Routine, On Unit 0857 (Given - Provider: Kiana Guthrie RN)2049 (Given - Provider: Anna Keyes) 0813 (Given - Provider: Nilson Terrell)2025 (Given - Provider: Valarie Anderson) 0847 (Given - Provider: Lorenza Barr RN) gabapentin (NEURONTIN) capsule 200 mg (CANCELED) 200 mg, oral, 2 TIMES DAILY BEFORE BREAKFAST & LUNCH, First dose on Tue12/14/11 at 0700, Until Discontinued, Routine 0622 (Given - Provider: Holly Norris)1204 (Given - Provider: Kiana Guthrie RN) 0631 (Given - Provider: Anna Keyes)1201 (Given - Provider: Nilson Terrell) 0619 (Given - Provider: Amrik Zaragoza RN)1224 (Given - Provider: Lorenza Barr RN) gabapentin (NEURONTIN) capsule 600 mg (CANCELED) 600 mg, oral, AT BEDTIME, First dose on Tue12/13/11 at 2100, Until Discontinued, Routine 2049 (Given - Provider: Anna Keyes) 2025 (Given - Provider: Valarie Anderson) magnesium hydroxide (MILK OF MAGNESIA) 400 mg/5 mL suspension 30 mL (COMPLETED) 30 mL, oral, AT BEDTIME, 1 dose, First dose on Tue12/15/11 at 2100, Routine, On Unit 2113 (Given - Provider: Anna Keyes) morphine (MS CONTIN) CR tablet 15 mg (COMPLETED) 15 mg, oral, EVERY 12 HOURS, 4 doses, First dose on Tue12/13/11 at 2100, Last dose on Tue12/15/11 at 0900, Routine, On Unit 0858 (Given - Provider: Kiana Guthrie RN) pantoprazole (PROTONIX) tablet 40 mg (CANCELED) 40 mg, oral, DAILY, First dose on Tue12/14/11 at 0900, Until Discontinued, Routine 0857 (Given - Provider: Kiana Guthrie RN) 0813 (Given - Provider: Nilson Terrell) 0847 (Given - Provider: Lorenza Barr RN) valACYclovir (VALTREX) tablet 500 mg (CANCELED) 500 mg, oral, DAILY, 8 doses, First dose on Tue12/14/11 at 0900, Last dose on Tue12/21/11 at 0900, Routine 0858 (Given - Provider: Kiana Guthrie RN) 0819 (Given - Provider: Nilson Terrell) 0847 (Given - Provider: Lorenza Barr RN) venlafaxine (EFFEXOR-XR) XR capsule 150 mg (CANCELED) 150 mg, oral, DAILY, First dose on Tue12/14/11 at 0900, Until Discontinued, Routine 0857 (Given - Provider: Kiana Guthrie RN) 0813 (Given - Provider: Nilson Terrell) 0847 (Given - Provider: Lorenza Barr RN) Continuous Medication Order 12/15/2011 12/16/2011 12/17/2011 sodium chloride 0.9 % (NS) infusion (CANCELED) at 75 mL/hr, intravenous, CONTINUOUS, Starting on Tue12/14/11 at 1515, Until Tue12/16/11 at 0607, Routine 0306 (New Bag - Provider: Holly Norris)0811 (Rate Documented - Provider: Kiana Guthrie RN) PRN Medication Order 12/15/2011 12/16/2011 12/17/2011 oxycodone (ROXICODONE) immediate release tablet 5-20 mg 5-20 mg, oral, EVERY 4 HOURS PRN, Starting on 12/13/11 at 1752, Until Tue12/17/11 at 1528, Pain, Routine, On Unit 0033 (Given - Provider: Holly Norris)0433 (Given - Provider: Holly Norris)0858 (Given - Provider: Kiana Guthrie RN)1231 (Given - Provider: Kiana Guthrie RN)1653 (Given - Provider: Anna Keyes)2050 (Given - Provider: Anna Keyes) 0058 (Given - Provider: Anna Keyes)0632 (Given - Provider: Anna Keyes)1038 (Given - Provider: Nilson Terrell)1451 (Given - Provider: Nilson Terrell)1856 (Given - Provider: Valarie Anderson)2333 (Given - Provider: Amrik Zaragoza RN) 0333 (Given - Provider: Amrik Zaragoza RN)0848 (Given - Provider: Lorenza Barr RN)1224 (Given - Provider: Lorenza Barr RN) documented in this encounter Orders Medications Ordered That Vj ht Not Have Been Administered Count Last Ordered Date First Ordered Date atropine 0.1 mg/mL 10 mL syringe 0.5 mg 1 0 12/13/2011 cetirizine (ZYRTEC) tablet 10 mg 1 12/13/19 12 magnesium hydroxide (MILK OF MAGNESIA) 400 mg/5 mL suspension 30 mL 1 12/13/2011 meperidine (PF) (DEMEROL) 25 mg/0.5 mL injection 12.5 mg 1 12/13/2011 midazolam (VERSED) injection 0.5-2 mg 1 07/2011 nalbuphine (NUBAIN) injection 2.5-5 mg 1 naloxone (NARCAN) injection 0.1 mg 1 2011 naloxone (NARCAN) injection 0.2 mg 1 2011 omeprazole (PRILOSEC) capsule 20 mg 1 12/12 ondansetron (PF) (ZOFRAN) injection 2-4 mg 2 12/13/2011 oxycodone (ROXICODONE) immed iate release tablet 5 mg 1 12/13/2011 Nursing Count Last Ordered Date First Orde red Date INSERT BOATENG CATHETER 1 12/13/[address] SEQUENTIAL COMPRESSION DEVICE 1 12/12 PT Count Last Ordered Date First Orde red Date PT EVALUATION AND TREAT 1 12/13/2011 IV Count Last Ordered Date First Orde red Date IV REQUEST 1 12/13/2011 Admission Count Last Ordered Date First Orde red Date STATUS: INPATIENT DOSA/DOPA DAY OF SURGERY/PROCEDURE ADMISSION 1 12/13/2011 Transfer Count Last Ordered Date First Orde red Date NOTIFY PPS OF DISCHARGE COMPLETE 1 12/17/19 12 NOTIFY PPS PATIENT ARRIVAL IN PACU 1 2011 NOTIFY PPS PATIENT TRANSFERRED OUT OF PACU 1 12/13/2011 PPS NOTIFICATION OF PATIENT ARRIVAL ON UNIT 1 12/13/2011 Discharge Count Last Ordered Date First Orde red Date DISCHARGE PATIENT 1 12/16/2011 Equipment Count Last Ordered Date First Orde red Date GENERIC DME ORDER 1 12/16/2011 Consult to Social Work Count Last Ordered Date First Ordered Date CONSULT SOCIAL WORK 1 12/13/2011 documented in this encounter Care Teams Hand Washer Relationship Specialty Start Date End Date Ramses Blancas MD [address] [facility] [address] [place] [address] PCP - General 01/06/11 documented as of this encounter
--- OUTSIDE RECORDS SUMMARY | 2024-03-20 15:12 | XMS_ITS | Encounter Summary ---
Author Organization [facility] Address [address] [place] [address] Care Team Providers Care Bread Room Hand Name Role Phone Linda Blancas MD Primary Care Provider [phone] Reason for Visit * Reason Onset Date Comments Orders (Non Pre-visit) 11/30/2011 Encounter Details Date Type Department Care Team (Late st Contact Info) Description 11/30/2011 Orders Only [facility] Spine Program - [address] [address] Anusha Norwood, RN [address] [place] [address] Social History Tobacco Use Types Packs/Day Years Used Date Smoking Tobacco: Never Alcohol Use Standard Drinks/Week Comments Yes 2.5 (1 standard drink = 0.6 oz p ure alcohol) Sex and Gender Information Value Date Recorded Sex Assigned at Female 05/17/2019 15:31 EST Gender Identity Female 04/26/2019 13:08 EST Sexual Orientation Bisexual 08/26/2022 10 :47 EDT documented as of this encounter Ordered Prescriptions Prescription Sig Dispensed Refills Start Date End Da te mupirocin calcium (BACTROBAN NASAL) 2 % nasal ointment Apply to each nostril with a Q-tip twice a day, then pinch nose for several seconds for five day. 1 Tube 0 11/30/2011 01/07/2012 documented in this encounter Progress Notes * Anusha Norwood, RN - 11/30/2011 0956 EDT Informed pt that her swab came back positive for MSSA. Instructed pt on how to use Bactroban starting five days prior to surgery. Also instructed pt to start using the chlorhexidine daily at the sametime. Information sent to pt on how to use the Bactroban. documented in this encounter Plan of Treatment Upcoming Encounters Date Type Department Care Team (Late st Contact Info) Description 04/02/2024 10:30 EDT Appointment [facility] Interventional Radiology Unit [address] [place] [address] [phone] 04/02/2024 15:15 EDT Office Visit [facility] Surgical Oncology - [address] [phone] Adolfo Carreno MD [address] [place] [address] [phone] 04/05/2024 9:[address] [facility] - [facility] Palliative Care Services [address] [place] [address] [phone] Chichi Woods MD [address] [place] [address] [phone] 04/11/2024 15:00 EDT Telemedicine [facility] Hematology & Oncology [address] [phone] Alisson Carreon MD [address] [place] [address] [phone] 04/13/2024 13:30 EDT Appointment [facility] Hematology & Oncology [address] [phone] 04/13/2024 14:00 EDT Appointment [facility] Hematology & Oncology [address] [phone] 04/16/2024 10:[address] [facility] - [facility] Palliative Care Services [address] [place] [address] [phone] Chichi Woods MD [address] [place] [address], [place] [address] [place] [phone] 04/24/2024 9:00 EST Appointment [facility] Radiology CT Outpatient - [address] [phone] 04/24/2024 11:00 EST Appointment [facility] Breast Imaging - [facility] [address] [place], [place] [phone] 04/27/2024 12:00 EST Appointment [facility] Hematology & Oncology - [address] [phone] 05/02/2024 15:00 EST Telemedicine [facility] Hematology & Oncology - [address] [phone] Alisson Carreon MD [address] [place] [address], [address] [place] [phone] 05/04/2024 10:15 EST Ancillary Procedure [facility] Cardiology - [address] [place], [place] [phone] 05/04/2024 11:30 EST Appointment [facility] Hematology & Oncology - [address] [phone] 05/04/2024 12:00 EST Appointment [facility] Hematology & Oncology [address] [phone] 06/12/2024 13:00 EST Appointment [facility] Radiology CT - [address] [phone] documented as of this encounter Visit Diagnoses Not on filedocumented in this encounter Care Teams Bread Room Hand Relationship Specialty Start Date End Date Linda Blancas MD [facility] [address] [place] [address] PCP - General 01/06/11 documented as of this encounter
--- OUTSIDE RECORDS SUMMARY | 2024-03-20 15:12 | XMS_ITS | Encounter Summary ---
Author Organization [facility] Address [address] [place] [address] Care Team Providers Care Meat Specialist Name Role Phone Ramses Blancas MD Primary Care Provider [phone] Reason for Visit * Reason Comments Back Pain R ant thigh pain on walking and standing Encounter Details Date Type Department Care Team (Late st Contact Info) Description 11/30/2011 13:00 EDT Office Visit [facility] Neurosurgery - [facility] [address] [place] [address] Mirian Glass PA [address] [place] [address] [phone] Lumbar radicular pain; Acquired spondylolisthesis; Lumbosacral spondylosis without myelopathy Social History Tobacco Use Types Packs/Day Years [...] Sign Reading Time Taken Comments Blood Pressure 118/80 11/30/2011 1325 EDT Pulse 70 11/30/2011 1325 EDT Temperature - - Respiratory Rate 18 11/30/2011 1325 EDT Oxygen Saturation - - Inhaled Oxygen Concentration - - Weight 68 kg (150 lb) 11/30/2011 1325 EDT Height 154.9 cm (5' 1) 11/30/2011 1325 EDT Body Mass Index 28.34 11/30/2011 1325 EDT documented in this encounter Progress Notes * SALES ASSOCIATE KEY HOLDER, ERIK 2 - 12/09/2011 1230 EDT * Mirian Glass Rodolfo - 11/30/2011 1355 EDT The patient's primary care provider is RAMSES BLANCAS DO. The referring provider is Ramses Blancas and this will be sent as a letter to the referring provider. 11/30/2011 Patient Active Problem List Diagnoses ??? LGSIL on Pap Smear ??? Premature ovarian failure ??? HSV-2 infection ??? Unspecified menopausal and postmenopausal disorder ??? Routine gynecological examination ??? Lumbar radicular pain ??? Acquired spondylolisthesis ??? Lumbosacral spondylosis without myelopathy ??? Acquired absence of breast and nipple Sunshine Pleitez is a 51 y.o. female who presents today for Neurosurgical Consultation as requested by Ramses Blancas. The patient's PCP is RAMSES BLANCAS DO. Sunshine Pleitez is complainingprimarily of incredible back pain and has spondylolisthesis. She will have pain in her back into the right anterior hip, anterior right thigh and into the entire anterior knee on the right only. No left sided symptoms. She has no bowel and bladder dysfunction. This all started August 31, 2010 when she golfed for the first time in 10 years. The next day she was unable to walk due to pain in the Right anterior upper leg and back pain. 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 She does not have any weakness to report. She has numbness ghost tingles that go down the right young and toes will go numb with heels. She first rested x 6 weeks then went to PT in October and November 2010. Then she saw a chiropractor and had inversion table treatments, and also tried massage therapy. She has been seen at the [facility] and also had 3 injections. She had only 2 weeks or less of benefit from these injections. She has also tried accupuncture without lasting relief. She has worn a back brace without much improvement. The patient complains of pain on best day , worst day . The pain is described as sharp, stabbing, aching, radiating, burning. Dr. Hanley is recommending an L3-S1 decompression and fusion. She has been consented for surgery and awaiting an OR date of December 12. This is a second opinion. She is a breast cancer survivor. Past Medical History, Past Surgical History, Social History and Family History has all been reviewed with the patient and is noted on the patient's intake form. Records from referring provider's office were received, reviewed and much appreciated. Pertinent information has been incorparated within the body of this note and or abstracted into the patient's problem list and chart. This patient is not a smoker. She is very athletic with her ballroom and latin dancing. She is alsorecently . Current Outpatient Prescriptions Medication Sig Dispense Refill ??? mupirocin calcium (BACTROBAN NASAL) 2 % nasal ointment Apply to each nostril with a Q-tip twicea day, then pinch nose for several seconds for five day. 1 Tube 0 ??? CALCIUM CARBONATE (TUMS CALCIUM FOR LIFE BONE ORAL) Take by mouth. ??? venlafaxine (EFFEXOR-XR) 150 mg XR capsule Take 1 Cap by mouth daily. 90 Cap 3 ??? valACYclovir (VALTREX) 500 mg tablet Take 1 Tab by mouth daily. 90 Tab 3 ??? gabapentin (NEURONTIN) 300 mg capsule Take 1 Cap by mouth at bedtime. 90 Cap 3 ??? gabapentin (NEURONTIN) 100 mg capsule Take 1 Cap by mouth 2 times daily with breakfast and lunch. 180 Cap 0 ??? RED YEAST RICE EXTRACT ORAL Take by mouth daily. ??? DOXYLAMINE SUCCINATE (UNISOM ORAL) Take by mouth as needed. ??? IBUPROFEN ORAL Take by mouth as needed. ??? MULTIVITS W-CA,FE,OTHER MIN (WOMEN'S DAILY FORMULA ORAL) Take by mouth daily. Allergies Allergen Reactions ??? Sulfa(Sulfonamide Antibiotics) Hives Review of System: A full 10 point ROS was conducted and pertinent positives were reviewed and discussed with the patient. All other systems were negative. Please refer to the patient's intact form. Records from the referring provider's office were received and reviewed and any available relevant information contained in the [facility] EMR was reviewed. Pertinent information summarized and incorporated within the body ofthis note. Exam: BP 118/80 Pulse 70 Resp 18 Ht 154.9 cm (61) Wt 68.04 kg (150 lb) BMI 28.34 kg/m2 General: patient is in mild distress. Normal LOC, bright and cheerful affect, speech clear and goal directed. Skin: without rash or lesions on exposed surfaces HENT: face symmetrical, atraumatic, normocephalic Resp: without labored breathing Cardio: RRR, vitals reviewed Abd: no distension appreciated Musculoskeletal: No difficulty with gait, able to toe walk, able to heel walk, Neg SLR, excellent ROM cspine and lumbar spine, non tender to palpation of lumbar spine, non tender SI joints. No Pedal edema. CN II - XII were grossly intact to testing today. No word finding difficulty apparent. No ataxia. Neurologic: 5/5 grossly intact BUE BLE motor exam, intact grossly intact BUE BLE sensory exam, No rigidity or atrophy. Radiographic Evidence: The patient underwent lumbar MRI on 09/27/2011: 1. Lumbar degenerative disc and degenerative joint disease. 2. Multilevel lumbar listhesis. 3. Lateral recess narrowing on the right at L3-L4. 4. Neuroforaminal stenosis bilaterally at L3-L4, L4-L5 and on the left at L5-S1. 5. Small bilateral hip joint effusions. Patient also had lumbar xrays on 01/07/2011 which found: Very slight leftward curvature of the lumbar spine is noted convex at L3-L4. Grade 1 anterolisthesis of L3 on L4 and L4 on L5 appears relatively stable between flexion, neutral and extension views. Isuspect there are pars defects present at both the L3 and L4 levels. Vertebral body heights are preserved. There is disc space narrowing at L3-L4 and L4-L5. A calcified lesion in the left pelvis likely reflects a uterine fibroid. Images were personally reviewed and demonstrated to the patient with explanation. Assessment: Anterolisthesis L3 on L4 and L4 on L5 with neural compression, lateral recess and foraminal stenosis. Primary complaint of back pain. Excellent surgical candidate for lumbar instrumented fusion. Plan: The patient is an excellent surgical candidate for a lumbar instrumented fusion. She has significant structural abnormalities within her lumbar spine and multilevel neural compression. Her back pain will likely get significantly better with stabilization and decompression. I agree with Dr Hanley's plan for the proposed fusion from L3-S1 and I have answered the patient's questions regarding this treatment. The patient seems to be quite ready for this surgery and very motivated for her recovery. We discussed minimal impact on her range of motion and she certainly has good core strength going into the surgery. I suspect she will do very well. She is not a smoker and reasonably healthy otherwise. Dr. Kellogg was immediately available for supervision today. Thank you for allowing us to participate in the care of your patient. Cc: DO Yonny RMAON Julie, DO [facility] [address] [place] [address] Tylor Hanley MD Orthopedics, FA documented in this encounter Plan of Treatment Upcoming Encounters Date Type Department Care Team (Late st Contact Info) Description 04/02/2024 10:30 EDT Appointment [facility] Interventional Radiology Unit [address] [place] [address] [phone] 04/02/2024 15:15 EDT Office Visit [facility] Surgical Oncology - [address] [phone] Adolfo Carreno MD [address] [facility], [address] [place] [phone] 04/05/2024 9:30 EDT Telemedicine [facility] Palliative Care Services [address] [place], [place] [phone] Chichi Woods MD [address] [place] [address], [address] [phone] 04/11/2024 15:00 EDT Telemedicine [facility] Hematology & Oncology - [facility] [address] [place], [place] [phone] Alisson Carreon MD [address] [facility], [facility] 2 [place] [phone] 04/13/2024 13:30 EDT Appointment [facility] Hematology & Oncology - [address] [phone] 04/13/2024 14:00 EDT Appointment [facility] Hematology & Oncology - [address] [phone] 04/16/2024 10:00 EST Telemedicine [facility] - [facility] Palliative Care Services [address] [place] [address] [phone] Chichi Woods MD [address] [place] [address], [address] [phone] 04/24/2024 9:[address] [facility] Radiology CT Outpatient - [address] [id number] 04/24/2024 11:00 EST Appointment [facility] Breast Imaging - [facility] [address] [phone] 04/27/2024 12:00 EST Appointment [facility] Hematology & Oncology - [address] [phone] 05/02/2024 15:00 EST Telemedicine [facility] Hematology & Oncology - [address] [phone] Alisson Carreon MD [address] [place] [address], [address] [place] [phone] 05/04/2024 10:15 EST Ancillary Procedure [facility] Cardiology - [address] [place], [place] [phone] 05/04/2024 11:30 EST Appointment [facility] Hematology & Oncology [address] [address] 05/04/2024 12:00 EST Appointment [facility] Hematology & Oncology [address] [address] 06/12/2024 13:00 EST Appointment [facility] Radiology CT - [address] [address] documented as of this encounter Visit Diagnoses Diagnosis Lumbar radicular pain Thoracic or lumbosacral neuritis or radiculitis, unspecified Acquired spondylolisthesis Lumbosacral spondylosis without myelopathy documented in this encounter Care Teams Meat Specialist Relationship Specialty Start Date End Date Ramses Blancas MD [address] [place] [address] [address] [place] [address] PCP - General 01/06/11 documented as of this encounter
--- OUTSIDE RECORDS SUMMARY | 2024-03-20 15:12 | XMS_ITS | Encounter Summary ---
Author Organization [facility] Address [address] [place] [address] Care Team Providers Care Customs Entry Writer Name Role Phone Linda Blancas MD Primary Care Provider [phone] Encounter Details Date Type Department Care Team (Late st Contact Info) Description 02/09/2012 Orders Only [facility] Spine Program - [address] [place], [place] [phone] Anusha Norwood, RN [address] [place] [id number] Social History Tobacco Use Types Packs/Day Years [...] as of this encounter Progress Notes * Anusha Norwood RN - 02/09/2012 0911 EDT Surgical invasiveness index has been calculated by the attending surgeon. The total score is 34. Anusha Norwood RN documented in this encounter Plan of Treatment Upcoming Encounters Date Type Department Care Team (Late st Contact Info) Description 04/02/2024 10:30 EDT Appointment [facility] Interventional Radiology Unit [address] [place] [address] [phone] 04/02/2024 15:15 EDT Office Visit [facility] Surgical Oncology - [address] [phone] Adolfo Carreno MD [address] [place] [address] [phone] 04/05/2024 9:30 EDT Telemedicine [facility] Palliative Care Services [address] [place] [address] [phone] Chichi Woods MD [address] [place] [address] [phone] 04/11/2024 15:00 EDT Telemedicine [facility] Hematology & Oncology - [address] [phone] Alisson Carreon MD [address] [place] [address] [phone] 04/13/2024 13:30 EDT Appointment [facility] Hematology & Oncology [address] [phone] 04/13/2024 14:00 EDT Appointment [facility] Hematology & Oncology [address] [phone] 04/16/2024 10:00 EST Telemedicine [facility] Palliative Care Services [address] [place] [address] [phone] Chichi Woods MD [address] [place] [address] [phone] 04/24/2024 9:00 EST Appointment [facility] Radiology CT Outpatient - [address] [address] 04/24/2024 11:00 EST Appointment [facility] Breast Imaging - [facility] [address] [place] [address] 04/27/2024 12:00 EST Appointment [facility] Hematology & Oncology - [address] [phone] 05/02/2024 15:00 EST Telemedicine [facility] Hematology & Oncology [address] [address] Alisson Carreon MD [address] [place] [address], Level [address] [place] [phone] 05/04/2024 10:15 EST Ancillary Procedure [facility] Cardiology - [address] [place] [address] 05/04/2024 11:30 EST Appointment [facility] Hematology & Oncology - [address] [address] 05/04/2024 12:00 EST Appointment [facility] Hematology & Oncology [address] [address] 06/12/2024 13:00 EST Appointment [facility] Radiology CT - [address] [address] documented as of this encounter Visit Diagnoses Not on filedocumented in this encounter Care Teams Customs Entry Writer Relationship Specialty Start Date End Date Linda Blancas MD [facility] [address] [place] [address] PCP - General 01/06/11 documented as of this encounter
--- OUTSIDE RECORDS SUMMARY | 2024-03-20 15:12 | XMS_ITS | Encounter Summary ---
Author Organization [facility] Address [address] [place] [address] Care Team Providers Care Site Damage Prevention Technician Name Role Phone Linda Blancas MD Primary Care Provider [phone] Encounter Details Date Type Department Care Team (Late st Contact Info) Description 12/08/2011 Results Only [facility] OBGYN Services - [address] 174381 Quita Babb PA-C [address] [place] [address], Level 2 [place] [phone] Social History Tobacco Use Types Packs/Day Years Used Date Smoking Tobacco: Never Alcohol Use Standard Drinks/Week Comments Yes 2.5 (1 standard drink = 0.6 oz p ure alcohol) Sex and Gender Information Value Date Recorded Sex Assigned at Female 05/17/2019 15:31 EST Gender Identity Female 04/26/2019 13:08 EST Sexual Orientation Bisexual 08/26/2022 10 :47 EDT documented as of this encounter Plan of Treatment Upcoming Encounters Date Type Department Care Team (Late st Contact Info) Description 04/02/2024 10:30 EDT Appointment [facility] Interventional Radiology Unit [address] [place] [address] [phone] 04/02/2024 15:15 EDT Office Visit [facility] Surgical Oncology - [address] 479511 Adolfo Carreno MD [address] [place] [address] 2 [place] [phone] 04/05/2024 9:30 EDT Telemedicine [facility] Palliative Care Services [address] [place] [address] [phone] Chichi Woods MD [address] [place] [address] [phone] 04/11/2024 15:00 EDT Telemedicine [facility] Hematology & Oncology - [address] 350211 Alisson Carreon MD [address] [place] [address] 2 [place] [phone] 04/13/2024 13:30 EDT Appointment [facility] Hematology & Oncology - [address] 257761 04/13/2024 14:00 EDT Appointment [facility] Hematology & Oncology - [address] [phone] 04/16/2024 10:00 EST Telemedicine [facility] - [facility]iative Care Services [address] [place] [address] 626191 Chichi Woods MD [address] [place] [address] [phone] 04/24/2024 9:00 EST Appointment [facility] Radiology CT Outpatient - [address] [phone] 04/24/2024 11:00 EST Appointment [facility] Breast Imaging - [address] 015341 04/27/2024 12:00 EST Appointment [facility] Hematology & Oncology [address] [address] 05/02/2024 15:00 EST Telemedicine [facility] Hematology & Oncology [address] [address] Alisson Carreon MD [address] [place] [address], Level 2 [place] [phone] 05/04/2024 10:15 EST Ancillary Procedure [facility] Cardiology [place] [address] 05/04/2024 11:30 EST Appointment [facility] Hematology & Oncology [address] [address] 05/04/2024 12:00 EST Appointment [facility] Hematology & Oncology [address] [address] 06/12/2024 13:00 EST Appointment [facility] Radiology CT - [address] 562191 documented as of this encounter Procedures Procedure Name Priority Date/Time Associated Diagnosis Comments PAP TEST- RESULT ONLY Routine 12/08/2011 0:00 EDT documented in this encounter Results * PAP TEST- RESULT ONLY (12/08/2011 0:00 EDT) Pathology Report: CYTOPATHOLOGY REPORT Reports generated via electronic interface contain original data; however they are lacking the format of the original report. Caution should be taken when reading/interpreti ng unformatted reports. Name: ? PARDEEP SUBRAMANIAN ? Accession #: ? [id number] : ? 1960 (Age: 51) ??F ?Collect Date: ? 12/08/2011 Location: ? OBGYN ? Receive Date: ? 12/09/2011 Provider: ?QUITA FU Copy to: ? Specimen/Source: ?Pap Test, Cervix/Endocervix, ThinPrep Imaging System with manual evaluation Last Menstrual Period: ? Previous Gynecologic Pathology: ? LSIL: hx ASC-US HPV: HR HPV VAIN: II Treatment History: ? Miscellaneous treatment Other: ? Additional clinical information: last 3 paps WNL ? SPECIMEN ADEQUACY ? Satisfactory for Evaluation - transformation zone component present GENERAL CATEGORIZATION ? Negative for Intraepithelial Lesion or Malignancy ? Document reviewed and electronically signed by: ? YOSHI Armstrong(ASCP) ? Report Date: ??12/13/2011 14:43 End of Report RENÉE CALDERA 12/08/2011 12/09/2011 Quita Babb PA-C PATHOLOGY JAIMEE ACOSTA Performing Organization Address City/State/[facility] Co de Phone Number RENÉE CALDERA [address] [place] [address] documented in this encounter Visit Diagnoses Not on filedocumented in this encounter Care Teams Site Damage Prevention Technician Relationship Specialty Start Date End Date Linda Blancas MD [address] [place] [address] [address] [place] [address] PCP - General 01/06/11 documented as of this encounter
--- OUTSIDE RECORDS SUMMARY | 2024-03-20 15:12 | XMS_ITS | Encounter Summary ---
Author Organization [facility] Address [address] [place] [address] Care Team Providers Care Funder Name Role Phone Linda Blancas MD Primary Care Provider [phone] Reason for Visit * Reason Comments Back Pain Encounter Details Date Type Department Care Team (Late st Contact Info) Description 01/07/2012 10:30 EDT Office Visit [facility] Spine Program - [address] [place] [address] Felipe Ny MD [address] [place] [address] [place] [phone] Congenital spondylolisthesis (Primary Dx) Social [...] as needed for pain. 112 Tab 0 01/07/2012 03/07/2012 documented in this encounter Progress Notes * Felipe Ny MD - 01/10/2012 1109 EDT [facility] [address] [place] [address] PROGRESS/FOLLOWUP NOTE - 01/07/2012 PROBLEM: 1. Low back 50%, right leg pain 50% pain. a. L3, L4, L5 isthmic spondylolisthesis. b. Foraminal stenosis. 2. Breast cancer November of 2003. a. Status post mastectomy and reconstruction. 3. Status post bilateral carpal tunnel release. SUBJECTIVE: The patient comes in today for followup. She has undergone an anterior and posterior L3-S1 fusion. She had some minor wound breakdown posteriorly that has been treated with packing. She has had no fevers or chills. Overall, feeling quite good. OBJECTIVE: Anterior incision is healing well. Posterior incision has in the mid portion half an inch deep, centimeter long area of wound breakdown. No fluctuance or erythema, no tenderness. ASSESSMENT: The patient has superficial wound breakdown. PLAN: 1. Continue with dry dressing b.i.d. 2. Follow up as scheduled in 4 weeks. 3. Continue with current pain regimen. Electronically Signed by Felipe Ny MD 01/17/2012 12:19 Felipe Ny MD - Felipe Ny MD - Job ID: Doc ID: [id number] [facility] Doc ID: [id number] cc: * Felipe Ny MD - 01/07/2012 1157 EDT This office note has been dictated. [place] MD documented in this encounter Plan of Treatment Upcoming Encounters Date Type Department Care Team (Late st Contact Info) Description 04/02/2024 10:30 EDT Appointment [facility] Interventional Radiology Unit [address] [place], [place] 0[address] 04/02/2024 15:15 EDT Office Visit [facility] Surgical Oncology - [address] 554101 Adolfo Carreno MD [address] [place] [address] [phone] 04/05/2024 9:30 EDT Telemedicine [facility] Palliative Care Services [address] [place] [address] 964691 Chichi Woods MD [address] [place] [address] [phone] 04/11/2024 15:00 EDT Telemedicine [facility] Hematology & Oncology - [address] 408641 Alisson Carreon MD [address] [place] [address] [phone] 04/13/2024 13:30 EDT Appointment [facility] Hematology & Oncology [address] 128601 04/13/2024 14:00 EDT Appointment [facility] Hematology & Oncology [address] 000051 04/16/2024 10:00 EST Telemedicine [facility] Palliative Care Services [address] [place] [address] [phone] Chichi Woods MD [address] [place] [address] [phone] 04/24/2024 9:00 EST Appointment [facility] Radiology CT Outpatient - [address] [address] 04/24/2024 11:00 EST Appointment [facility] Breast Imaging - [facility] [place] 1 [place] [address] 04/27/2024 12:00 EST Appointment [facility] Hematology & Oncology [address] [address] 05/02/2024 15:00 EST Telemedicine [facility] Hematology & Oncology [address] 577351 Alisson Carreon MD [address] [place] [address], Level 2 [place] [phone] 05/04/2024 10:15 EST Ancillary Procedure [facility] Cardiology - [address] [place] [address] 05/04/2024 11:30 EST Appointment [facility] Hematology & Oncology [address] [phone] 05/04/2024 12:00 EST Appointment [facility] Hematology & Oncology [address] 179121 06/12/2024 13:00 EST Appointment [facility] Radiology CT - [address] [phone] documented as of this encounter Visit Diagnoses Diagnosis Congenital spondylolisthesis- Primary documented in this encounter Discontinued Medications Medication Sig Discontinue Reason Start Date End Da te CALCIUM CARBONATE (TUMS CALCIUM FOR LIFE BONE ORAL) Take 500 mg by mouth. With vit d 01/07/2012 mupirocin calcium (BACTROBAN NASAL) 2 % nasal ointment Apply to each nostril with a Q-tip twice a day, then pinch nose for several seconds for five day. 11/30/2011 01/07/2012 oxycodone (ROXICODONE) 5 mg immediate release tablet 1-2 tablets every 4-6 hours as needed for pain. Reorder 12/22/2011 01/07/2012 documented as of this encounter Care Teams Funder Relationship Specialty Start Date End Date Linda Blancas MD [address] [facility] [address] [place] [address] PCP - General 01/06/11 documented as of this encounter
--- OUTSIDE RECORDS SUMMARY | 2024-03-20 15:12 | XMS_ITS | Encounter Summary ---
Author Organization [facility] Address [address] [place] [address] Care Team Providers Care Rrt Name Role Phone Linda Blancas MD Primary Care Provider Encounter Details Date Type Department Care Team (Late st Contact Info) Description 12/07/2011 Orders Only [facility] Spine Program - [facility] [place] [address] Anusha Norwood, RN [address] [place] [address] Social History Tobacco Use Types Packs/Day Years Used Date Smoking Tobacco: Never Alcohol Use Standard Drinks/Week Comments Yes 2.5 (1 standard drink = 0.6 oz p ure alcohol) Sex and Gender Information Value Date Recorded Sex Assigned at Female 05/17/2019 15:31 EST Gender Identity Female 04/26/2019 13:08 EST Sexual Orientation Bisexual 08/26/2022 10 :47 EDT documented as of this encounter Progress Notes * Anusha Norwood, SHELLEY - 12/07/2011 1042 EDT Surgical invasiveness index has been calculated by the attending surgeon. The total score is 16. Anusha Norwood, SHELLEY documented in this encounter Plan of Treatment Upcoming Encounters Date Type Department Care Team (Late st Contact Info) Description 04/02/2024 10:30 EDT Appointment [facility] Interventional Radiology Unit [address] [place], [place] [phone] 04/02/2024 15:15 EDT Office Visit [facility] Surgical Oncology - [address] 821341 Adolfo Carreno MD [address] [place] [address] [phone] 04/05/2024 9:30 EDT Telemedicine [facility] Palliative Care Services [address] [place] [address] Chichi Woods MD [address] [place] [address] [phone] 04/11/2024 15:00 EDT Telemedicine [facility] Hematology & Oncology - [address] [phone] Alisson Carreon MD [address] [place] [address] [phone] 04/13/2024 13:30 EDT Appointment [facility] Hematology & Oncology - [address] 504341 04/13/2024 14:00 EDT Appointment [facility] Hematology & Oncology - [address] [address] 04/16/2024 10:00 EST Telemedicine [facility] Palliative Care Services [address] [place] [address] 941111 Chichi Woods MD [address] [place] [address] [phone] 04/24/2024 9:00 EST Appointment [facility] Radiology CT Outpatient - [address] 885631 04/24/2024 11:00 EST Appointment [facility] Breast Imaging - [facility] [place] 1 [place] [address] 04/27/2024 12:00 EST Appointment [facility] Hematology & Oncology - [address] [address] 05/02/2024 15:00 EST Telemedicine [facility] Hematology & Oncology - [address] 038421 Alisson Carreon MD [address] [place] [address], [facility], Level 2 [place] [phone] 05/04/2024 10:15 EST Ancillary Procedure [facility] Cardiology - [address] [place] [address] 05/04/2024 11:30 EST Appointment [facility] Hematology & Oncology - [address] [address] 05/04/2024 12:00 EST Appointment [facility] Hematology & Oncology - [address] 675581 06/12/2024 13:00 EST Appointment [facility] Radiology CT - [address] 285181 documented as of this encounter Visit Diagnoses Not on filedocumented in this encounter Care Teams Rrt Relationship Specialty Start Date End Date Linda Blancas MD [facility] [address] [place] [address] PCP - General 01/06/11 documented as of this encounter
--- OUTSIDE RECORDS SUMMARY | 2024-03-20 15:12 | XMS_ITS | Encounter Summary ---
Author Organization [facility] Address [address] [place] [address] Care Team Providers Care Laundry Operator Name Role Phone Linda Blancas MD Primary Care Provider [phone] Encounter Details Date Type Department Care Team (Late st Contact Info) Description 11/25/2011 19:50 EDT - 11/25/2011 23:59 EDT Hospital Encounter [facility] [address] [place] [address] Tylor Hanley MD [address] [place] [address] Discharge Disposition: Auto Discharge Social History [...] :47 EDT documented as of this encounter Medications at [...] 02/02/2011 01/13/2022 gabapentin (NEURONTIN) 100 mg capsule TAKE 1 CAPSULE TWICE A DAY, WITH BREAKFAST AND LUNCH 180 Cap 2 10/28/2011 12/08/2011 gabapentin (NEURONTIN) 300 mg capsule Take 1 Cap by mouth at bedtime. 90 Cap 3 06/21/2011 12/08/2011 IBUPROFEN ORAL Take by mouth as needed. 12/16/2011 omeprazole (PRILOSEC) 20 mg capsule Take 20 [...] EDT Appointment [facility] Interventional Radiology Unit [address] [place] [address] [phone] 04/02/2024 15:15 EDT Office Visit [facility] Surgical Oncology - [facility] [address] [place], [place] 955371 Adolfo Carreno MD [address] [facility], Level 2 [place] [phone] 04/05/2024 9:30 EDT Telemedicine [facility] Palliative Care Services [address] [place] [address] 458011 Chichi Woods MD [address] [place] [address] [phone] 04/11/2024 15:00 EDT Telemedicine [facility] Hematology & Oncology [address] 006181 Alisson Carreon MD [address] [place] [address], Level 2 [place] [phone] 04/13/2024 13:30 EDT Appointment [facility] Hematology & Oncology [address] 359991 04/13/2024 14:00 EDT Appointment [facility] Hematology & Oncology [address] 836661 04/16/2024 10:00 EST Telemedicine [facility] Palliative Care Services [address] [place] [address] [phone] Chichi Woods MD [address] [place] [address] [phone] 04/24/2024 9:00 EST Appointment [facility] Radiology CT Outpatient - [address] 401351 04/24/2024 11:00 EST Appointment [facility] Breast Imaging - [address] 112741 04/27/2024 12:00 EST Appointment [facility] Hematology & Oncology [address] 486771 05/02/2024 15:00 EST Telemedicine [facility] Hematology & Oncology [address] 661981 Alissno Carreon MD [address] [place] [address], Level [address] [place] [phone] 05/04/2024 10:15 EST Ancillary Procedure [facility] Cardiology - [address] [place], [place] [phone] 05/04/2024 11:30 EST Appointment [facility] Hematology & Oncology [address] 629431 05/04/2024 12:00 EST Appointment [facility] Hematology & Oncology [address] 688101 06/12/2024 13:00 EST Appointment [facility] Radiology CT - [address] [phone] documented as of this encounter Visit Diagnoses Not on filedocumented in this encounter Care Teams Laundry Operator Relationship Specialty Start Date End Date Linda Blancas MD [facility] [address] [place], [place] 8680[address] PCP - General 01/06/11 documented as of this encounter
--- OUTSIDE RECORDS SUMMARY | 2024-03-20 15:12 | XMS_ITS | Encounter Summary ---
Author Organization [facility] Address [address] [place] [address] Care Team Providers Care Counter Server Name Role Phone Linda Blancas MD Primary Care Provider [phone] Reason for Visit * Reason Onset Date Comments Pre-procedure 12/03/2011 Encounter Details Date Type Department Care Team (Late st Contact Info) Description 12/03/2011 Pre-Procedure Orders Encounter [facility] Spine Program - [address] [place] [address] Anusha Norwood, RN [address] [place] [phone] Acquired spondylolisthesis (Primary Dx) Social History Tobacco [...] [facility] Interventional Radiology Unit [address] [place] [address] 787161 04/02/2024 15:15 EDT Office Visit [facility] Surgical Oncology - [facility] [address] [place], [place] 935621 Adolfo Carreno MD 111 [facility], Level 2 [place] [phone] 04/05/2024 9:30 EDT Telemedicine [facility] Palliative Care Services [address] [place] [address] 789401 Chichi Woods MD [address] [place] [address] [phone] 04/11/2024 15:00 EDT Telemedicine [facility] Hematology & Oncology - [address] 996561 Alisson Carreon MD [address] [place] [address] 2 [place] [phone] 04/13/2024 13:30 EDT Appointment [facility] Hematology & Oncology - [address] 436281 04/13/2024 14:00 EDT Appointment [facility] Hematology & Oncology [address] 331101 04/16/2024 10:00 EST Telemedicine [facility] Palliative Care Services [address] [place] [address] Chichi Woods MD [address] [place] [address] [phone] 04/24/2024 9:00 EST Appointment [facility] Radiology CT Outpatient - [address] [phone] 04/24/2024 11:00 EST Appointment [facility] Breast Imaging - [address] 134851 04/27/2024 12:00 EST Appointment [facility] Hematology & Oncology - [address] [address] 05/02/2024 15:00 EST Telemedicine [facility] Hematology & Oncology [address] [address] Alisson Carreon MD [address] [place] [address], Level [address] [place] [phone] 05/04/2024 10:15 EST Ancillary Procedure [facility] Cardiology - [address] [place] [address] 05/04/2024 11:30 EST Appointment [facility] Hematology & Oncology [address] [address] 05/04/2024 12:00 EST Appointment [facility] Hematology & Oncology [address] 705291 06/12/2024 13:00 EST Appointment [facility] Radiology CT - [address] [phone] documented as of this encounter Visit Diagnoses Diagnosis Acquired spondylolisthesis- Primary documented in this encounter Care Teams Counter Server Relationship Specialty Start Date End Date Linda Blancas MD [facility] [address] [place] [address] PCP - General 01/06/11 documented as of this encounter
--- OUTSIDE RECORDS SUMMARY | 2024-03-20 15:12 | XMS_ITS | Encounter Summary ---
Author Organization [facility] Address [address] [place] [address] Care Team Providers Care Remote Sensing Program Manager Name Role Phone Linda Blancas MD Primary Care Provider [phone] Encounter Details Date Type Department Care Team (Late st Contact Info) Description 02/01/2012 15:04 EDT - 02/01/2012 23:59 EDT Hospital Encounter [address] [place] [address] Tylor Hanley MD [address] [place] [phone] Discharge Disposition: Home or Self Care [...] at bedtime. 180 Cap 3 12/08/2011 08/16/2012 oxycodone (ROXICODONE) 5 mg immediate release tablet 1-2 tablets every 6 hours as needed for pain. 112 Tab 0 01/07/2012 03/07/2012 valACYclovir (VALTREX) 500 mg tablet Take 1 Tab by mouth daily. 90 Tab 3 06/21/2011 05/29/2012 venlafaxine (EFFEXOR-XR) 150 mg XR capsule Take 1 Cap by mouth daily. 90 Cap 3 06/21/2011 07/19/2012 documented as of this encounter Discharge Disposition Disposition Code Departure Means Destination Home or Self Shelter documented in this encounter Plan of Treatment Upcoming Encounters Date Type Department Care Team (Late st Contact Info) Description 04/02/2024 10:30 EDT Appointment [facility] Interventional Radiology Unit [address] [place] [address] 04/02/2024 15:15 EDT Office Visit [facility] Surgical Oncology - [facility] [address] [place], [place] 2012[address] Adolfo Carreno MD [address] [facility], [facility], Level 2 [place] [phone] 04/05/2024 9:30 EDT Telemedicine [facility] Palliative Care Services [address] [place], [place] 920261 Chichi Woods MD [address] [place] [address] [address] [place] [phone] 04/11/2024 15:00 EDT Telemedicine [facility] Hematology & Oncology - [address] 817851 Alisson Carreon MD [address] [place] [address] 2 [place] [phone] 04/13/2024 13:30 EDT Appointment [facility] Hematology & Oncology [address] [phone] 04/13/2024 14:00 EDT Appointment [facility] Hematology & Oncology [address] [phone] 04/16/2024 10:00 EST Telemedicine [facility] - [facility] Palliative Care Services [address] [place] [address] 112591 Chichi Woods MD [address] [place] [phone] 04/24/2024 9:00 EST Appointment [facility] Outpatient - [address] [id number] 04/24/2024 11:00 EST Appointment [facility] Breast Imaging - [address] [phone] 04/27/2024 12:00 EST Appointment [facility] Hematology & Oncology - [address] [phone] 05/02/2024 15:00 EST Telemedicine [facility] Hematology & Oncology - [address] [phone] Alisson Carreon MD [address] [place] [address] Level 2 [place] [phone] 05/04/2024 10:15 EST Ancillary Procedure [facility] Cardiology - [address] [place] [address] 05/04/2024 11:30 EST Appointment [facility] Hematology & Oncology - [address] [phone] 05/04/2024 12:00 EST Appointment [facility] Hematology & Oncology [address] 350231 06/12/2024 13:00 EST Appointment [facility] Radiology CT - [address] [phone] documented as of this encounter Visit Diagnoses Not on filedocumented in this encounter Care Teams Remote Sensing Program Manager Relationship Specialty Start Date End Date Linda Blancas MD [facility] [address] [place] [address] PCP - General 01/06/11 documented as of this encounter
--- OUTSIDE RECORDS SUMMARY | 2024-03-20 15:12 | XMS_ITS | Encounter Summary ---
Author Organization [facility] Address [address] [place] [address] Care Team Providers Care Senior Media Buyer Name Role Phone Linda Blancas MD Primary Care Provider [phone] Reason for Referral * Radiology Services (Routine/Next Available) - Closed Specialty Diagnoses / Procedures Referred By Contac t Referred To Contact Diagnoses Lumbago Procedures L SPINE 2-3 VIEWS Tylor Hanley MD [address] [place] [phone] Referral ID Status Reason Start Date Expiration Date Visits Re quested Visits Authorized [id number] Closed 01/21/2012 1 1 Reason for Visit * Reason Onset Date Comments Back Pain 01/20/2012 Encounter Details Date Type Department Care Team (Late st Contact Info) Description 01/20/2012 Orders Only [facility] Spine Program - [facility] [place] [address] Tylor Hanley MD [address] [place] [phone] Lumbago (Primary Dx) Social History Tobacco [...] [facility] Interventional Radiology Unit [address] [place] [address] [phone] 04/02/2024 15:15 EDT Office Visit [facility] Surgical Oncology - [address] [phone] Adolfo Carreno MD [address] [place] [address] 2 [place] [phone] 04/05/2024 9:[address] [facility] - [facility] Palliative Care Services [address] [place] [address] [phone] Chichi Woods MD [address] [place] [phone] 04/11/2024 15:00 EDT Telemedicine [facility] Hematology & Oncology [address] 596021 Alisson Carreon MD [address] [place] [phone] 04/13/2024 13:30 EDT Appointment [facility] Hematology & Oncology [address] [id number] 04/13/2024 14:00 EDT Appointment [facility] Hematology & Oncology - [address] [phone] 04/16/2024 10:[address] [facility] - [facility] Palliative Care Services [address] [place] [address] [phone] Chichi Woods MD [address] [place] [address], [address] [phone] 04/24/2024 9:00 EST Appointment [facility] Radiology CT Outpatient - [address] [id number] 04/24/2024 11:00 EST Appointment [facility] Breast Imaging - [address] 455351 04/27/2024 12:00 EST Appointment [facility] Hematology & Oncology - [address] [phone] 05/02/2024 15:00 EST Telemedicine [facility] Hematology & Oncology - [address] [phone] Alisson Carreon MD [address] [place] [address], Level [address] [place] [phone] 05/04/2024 10:15 EST Ancillary Procedure [facility] Cardiology - [place] [address] 05/04/2024 11:30 EST Appointment [facility] Hematology & Oncology - [address] [phone] 05/04/2024 12:00 EST Appointment [facility] Hematology & Oncology [address] [phone] 06/12/2024 13:00 EST Appointment [facility] Radiology CT - [address] [phone] documented as of this encounter Procedures Procedure Name Priority Date/Time Associated Diagnosis Comments L SPINE 2-3 VIEWS Routine 02/01/2012 13: 49 EDT Lumbago documented in this encounter Results * L SPINE 2-3 VIEWS (02/01/2012 13:49 EDT) Anatomical Region Laterality Modality Other 02/01/2012 13:4 9 EDT 02/02/2012 11:03 EDT Narrative 02/02/2012 11:03 EDT L SPINE 2-3 VIEWS ??February 01, 2012 01:49:00 PM Signs and Symptoms/Comments: ??724.4-OWVHZUP-LFA-9-CM; Low back pain, s/p L3-S1 fusion Findings: Comparison 12/31/2011 Two views of the lumbar spine shows prior spinal fusion from L3 to S1, with bone graft material posterior laterally, pedicle screws and rods, and interbody bone graft material at L3-L4, L4-L5 and L5-S1. There is grade 1 anterior listhesis of L3 on L4, similar to the prior examination, with otherwise stable alignment of the spine. No definite hardware failure seen. Procedure Note 02/02/2012 L SPINE 2-3 VIEWS February 01, 2012 01:49:00 PM Signs and Symptoms/Comments: 724.9-ZOQGDIV-GWK-9-CM; Low back pain, s/p L3-S1 fusion Findings: Comparison 12/31/2011 Two views of the lumbar spine shows prior spinal fusion from L3 to S1, with bone graft material posterior laterally, pedicle screws and rods, and interbody bone graft material at L3-L4, L4-L5 and L5-S1. There is grade 1 anterior listhesis of L3 on L4, similar to the prior examination, with otherwise stable alignment of the spine. No definite hardware failure seen. Tylor Hanley MD IMG DIAGNOSTIC I MAGING ORDERABLES documented in this encounter Visit Diagnoses Diagnosis Lumbago- Primary documented in this encounter Care Teams Senior Media Buyer Relationship Specialty Start Date End Date Linda Blancas MD [facility] [address] [place] [address] PCP - General 01/06/11 documented as of this encounter
--- OUTSIDE RECORDS SUMMARY | 2024-03-20 15:12 | XMS_ITS | Encounter Summary ---
Author Organization [facility] Address [address] [place] [address] Care Team Providers Care Pipe Insulator Helper Name Role Phone Linda Blancas MD Primary Care Provider [phone] Reason for Referral * Consult, Test and Treat (Routine/Next Available) - Closed Specialty Diagnoses / Procedures Referred By Contac t Referred To Contact Rehab Therapies Diagnoses Acquired spondylolisthesis Tylor Hanley MD [address] [place] [address] [place] [phone] Referral ID Status Reason Start Date Expiration Date V isits Requested Visits Authorized [id number] Closed Specialty Services Required 12/03/2011 1 1 Question Answer Reason for Request: post-op pt Surgery (and Date): 12/13/11 Comments S/p ASF/PSF L3-S1 decomp/fusion/local/allog/ped. screws Reason for Visit * Reason Onset Date Comments Referral Request 12/03/2011 Encounter Details Date Type Department Care Team (Late st Contact Info) Description 12/03/2011 Orders Only [facility] Spine Program - [address] [place] [address] Anusha [place], RN [address] [place] [address] Acquired spondylolisthesis (Primary Dx) Social History Tobacco [...] [facility] [address] [place] [address] [phone] 04/02/2024 15:15 EDT Office Visit [facility] Surgical Oncology - [address] [phone] Adolfo Carreno MD [address] [place] [phone] 04/05/2024 9:30 EDT Telemedicine [facility] Palliative Care Services [address] [place] [address] 930461 Chichi Woods MD [address] [place] [address] [phone] 04/11/2024 15:00 EDT Telemedicine [facility] Hematology & Oncology [address] [phone] Alisson Carreon MD [address] [place] [address] [phone] 04/13/2024 13:30 EDT Appointment [facility] Hematology & Oncology [address] [phone] 04/13/2024 14:00 EDT Appointment [facility] Hematology & Oncology [address] 985991 04/16/2024 10:00 EST Telemedicine [facility] Palliative Care Services [address] [place], [place] 843991 Chichi Woods MD [address] [place] [address], [address] [phone] 04/24/2024 9:00 EST Appointment [facility] Radiology CT Outpatient - [address] [id number] 04/24/2024 11:00 EST Appointment [facility] Breast Imaging - [facility] [address] [place], [place] 104611 04/27/2024 12:00 EST Appointment [facility] Hematology & Oncology - [address] [phone] 05/02/2024 15:00 EST Telemedicine [facility] Hematology & Oncology - [address] [address] Alisson Carreon MD [address] [place] [address], Level [address] [place] [phone] 05/04/2024 10:15 EST Ancillary Procedure [facility] Cardiology [place] [address] [place] [address] 05/04/2024 11:30 EST Appointment [facility] Hematology & Oncology - [address] [phone] 05/04/2024 12:00 EST Appointment [facility] Hematology & Oncology [address] [phone] 06/12/2024 13:00 EST Appointment [facility] Radiology CT - [address] [phone] Scheduled Referrals Name Type Priority Associated Diagnoses Orde r Schedule AMB CONSULT PHYSICAL THERAPY Outpatient Referral Routine Acquired spondylolisthesis Ordered: 12/03/2011 documented as of this encounter Visit Diagnoses Diagnosis Acquired spondylolisthesis- Primary documented in this encounter Care Teams Pipe Insulator Helper Relationship Specialty Start Date End Date Linda Blancas MD [address] [place] [address] PCP - General 01/06/11 documented as of this encounter
--- OUTSIDE RECORDS SUMMARY | 2024-03-20 15:12 | XMS_ITS | Encounter Summary ---
Author Organization [facility] Address [address] [place] [address] Care Team Providers Care Aircraft Ordnance Technician Name Role Phone Linda Blancas MD Primary Care Provider [phone] Reason for Visit * Reason Comments Back Pain Encounter Details Date Type Department Care Team (Late st Contact Info) Description 02/01/2012 13:45 EDT Office Visit [facility] Spine Program - [address] [address] Felipe Ny MD [address] [place] [address] [place] [phone] Congenital spondylolisthesis (Primary Dx) Discharge Disposition: Auto Discharge Social [...] Progress Notes * Felipe Ny MD - 02/03/2012 1051 EDT [facility] [address] [place] [address] PROGRESS/FOLLOWUP NOTE - 02/01/2012 PROBLEM:. 1. Low back 50%, right leg pain 50% pain. a. L3, L4, L5 isthmic spondylolisthesis. b. Foraminal stenosis. 2. Breast cancer November of 2003. a. Status post mastectomy and reconstruction. 3. Status post bilateral carpal tunnel release. SUBJECTIVE: Patient returns for routine followup, overall doing well. She has had complete relief of preoperative leg pain and improvement in her back pain. She is making good progress. She stopped all pain medication, eating well, exercising an hour a day. Her energy, she gets tired in the afternoon. OBJECTIVE: Incisions well healed, 5/5 all muscle groups. DIAGNOSTIC DATA: X-rays, AP and lateral, show her hardware in good position, fusion consolidating. ASSESSMENT: Patient making appropriate progress. PLAN: 1. Progress with exercise program. 2. Follow up in 6 weeks. AP and lateral lumbar film to be obtained prior to being seen. Electronically Signed by Felipe Ny MD 02/04/2012 17:04 Felipe Ny MD - Felipe Ny MD - [place] Job ID: SM Doc ID: [id number] Ext Doc ID: [id number] cc: * Felipe Ny MD - 02/01/2012 1500 EDT This office note has been dictated. FELIPE NY MD documented in this encounter Plan of Treatment Upcoming Encounters Date Type Department Care Team (Late st Contact Info) Description 04/02/2024 10:30 EDT Appointment [facility] Interventional Radiology Unit [address] [place] [address] 04/02/2024 15:15 EDT Office Visit [facility] Surgical Oncology - [address] 955111 Adolfo Carreno MD [address] [place] [address] [phone] 04/05/2024 9:30 EDT Telemedicine [facility] Palliative Care Services [address] [place] [address] [phone] Chichi Woods MD [address] [place] [address] [phone] 04/11/2024 15:00 EDT Telemedicine [facility] Hematology & Oncology - [address] [phone] Alisson Carreon MD [address] [place] [address] [phone] 04/13/2024 13:30 EDT Appointment [facility] Hematology & Oncology [address] 132121 04/13/2024 14:00 EDT Appointment [facility] Hematology & Oncology [address] [address] 04/16/2024 10:00 EST Telemedicine [facility] Palliative Care Services [address] [place] [address] [phone] Chichi Woods MD [address] [place] [address] [phone] 04/24/2024 9:00 EST Appointment [facility] Radiology CT Outpatient - [address] 501591 04/24/2024 11:00 EST Appointment [facility] Breast Imaging - [facility] [address] [place] [address] [place], [place] 257691 04/27/2024 12:00 EST Appointment [facility] Hematology & Oncology - [address] [address] 05/02/2024 15:00 EST Telemedicine [facility] Hematology & Oncology [address] [address] Alisson Carreon MD [address] [place] [address], Level [address] [place] [phone] 05/04/2024 10:15 EST Ancillary Procedure [facility] Cardiology - [address] [place] [address] 05/04/2024 11:30 EST Appointment [facility] Hematology & Oncology - [address] [address] 05/04/2024 12:00 EST Appointment [facility] Hematology & Oncology - [address] [address] 06/12/2024 13:00 EST Appointment [facility] Radiology CT - [address] [phone] documented as of this encounter Visit Diagnoses Diagnosis Congenital spondylolisthesis- Primary documented in this encounter Discontinued Medications Medication Sig Discontinue Reason Start Date End Da te cetirizine (ZYRTEC) 10 mg tablet Take 10 mg by mouth as needed. 02/01/2012 omeprazole (PRILOSEC) 20 mg capsule Take 20 mg by mouth daily. 02/01/2012 documented as of this encounter Care Teams Aircraft Ordnance Technician Relationship Specialty Start Date End Date Linad Blancas MD [facility] [address] [place] [address] PCP - General 01/06/11 documented as of this encounter
--- OUTSIDE RECORDS SUMMARY | 2024-03-20 15:12 | XMS_ITS | Encounter Summary ---
Author Organization [facility] Address [address] [place] [address] Care Team Providers Care Methods Specialist Name Role Phone Ramses Blancas MD Primary Care Provider [phone] Reason for Visit * Reason Comments Wound Check Pt to the emergency department for wound check. Had recent surgery. The wound is open, has drainage. Leslie out Tuesday, five sutures still in place. Site close to sutures open approx 1/4 inch with drainage. No fever. No redness. Encounter Details Date Type Department Care Team (Late st Contact Info) Description 12/31/2011 11:51 EDT - 12/31/2011 16:14 EDT Emergency [facility] Emergency Department - [address] [address] Kiana Quinn PA-C [address] [place] [address], [address] [place] [phone] Emergency, MD Keegan Wound infection Discharge Disposition: Home or Self Care Social [...] Sign Reading Time Taken Comments Blood Pressure 123/76 12/31/2011 1611 EDT Pulse 77 12/31/2011 1611 EDT Temperature 36.8 ??C (98.2 ??F) 12/31/2011 1611 EDT Respiratory Rate 15 12/31/2011 1611 EDT Oxygen Saturation 100% 12/31/2011 1611 EDT Inhaled Oxygen Concentration - - Weight 65.8 kg (145 lb) 12/31/2011 1258 EDT Height 154.9 cm (5' 1) 12/31/2011 1258 EDT Body Mass Index 27.4 12/31/2011 1258 EDT documented in this encounter Functional Status Cognitive Status Response Date of Assessm ent Because of a physical, menta l, or emotional condition, do you have serious difficulty concentrating, remembering, or making decisions? (5 years old or older) No 12/13/2011 documented as of this encounter Discharge Instructions * Discharge Instructions* Kiana Quinn PA - 12/31/2011 15:36 EDT You have been seen in the ED for a wound infection to your surgical incision Take Keflex as directed until finished - it is important to finish this antibiotic even if you are feeling better Replace wound bandages twice daily as shown in the ED, including changing the wick placed Watch for signs and symptoms of worsening infection such as fever, chills, increasing pain, streaking erythema, increased drainage or odor from the wound and follow up with Dr. Hanley or return to the ED if symptoms develop * Attachments The following attachments cannot be sent through Care Everywhere. * WOUND CARE: AFTER YOUR VISIT (SLOVENIAN) documented in this encounter Medications at Time [...] mg by mouth. With vit d 01/07/2012 cephALEXin (KEFLEX) 500 mg capsule Take 1 Cap by mouth 4 times daily for 7 days. 28 Cap 0 12/31/2011 01/07/2012 cetirizine (ZYRTEC) 10 mg tablet Take [...] every 4-6 hours as needed for pain. 168 Tab 0 12/22/2011 01/07/2012 valACYclovir (VALTREX) 500 mg tablet Take 1 Tab by mouth daily. 90 Tab 3 06/21/2011 05/29/2012 venlafaxine (EFFEXOR-XR) 150 mg XR capsule Take 1 Cap by mouth daily. 90 Cap 3 06/21/2011 07/19/2012 documented as of this encounter Ordered Prescriptions Prescription Sig Dispensed Refills Start Date End Da te cephALEXin (KEFLEX) 500 mg capsule Take 1 Cap by mouth 4 times daily for 7 days. 28 Cap 0 12/31/2011 01/07/2012 documented in this encounter Discharge Disposition Disposition Code Departure Means Destination Home or Self Care documented in this encounter Consult Notes * Amrik Gutierrez MD - 12/31/2011 1419 EDT Orthopaedics Spine Consult Date of Service: 12/31/2011 Consult requested by Kiana Quinn for back wound and drainage CC: Spine incision drainage HPI: Sunshine Subramanian is a 51 y.o. female who is s/p ASF L3-S1, PSF and decompression L3-S1 on 12/[address] Hanley. She had an uneventful hospital course and was discharged POD4. First week at home went well. Then developed some drainage from posterior incision. PCP gently debrided. Returned home, wound continued to have some minor drainage. Only requiring daily dressing changes. No fevers.Occasionally having stomach aches after eating. Has been walking at least 15 minutes per day. Pain well controlled on PO regimen. Denies other complaints. Denies paresthesias. Denies weakness. Deniesbowel/bladder incontinence but is still relying on stool softeners. No saddle anesthesia. PCP: RAMSES BLANCAS DO PMH: Past Medical History Diagnosis Date ??? 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 Allergy PSH: Past Surgical History Procedure Date ??? Breast surgery 01/30/2004 Right mastectomy ??? Breast reconstruction 01/30/2004 subpectoral implant ??? Carpal tunnel release 2007 ??? Lipoma resection 2000 Meds: No current facility-administered medications on file prior to encounter. Current Outpatient Prescriptions on File Prior to Encounter Medication Sig Dispense Refill ??? oxycodone (ROXICODONE) 5 mg immediate release tablet 1-2 tablets every 4-6 hours as needed for pain. 168 Tab 0 ??? gabapentin (NEURONTIN) 300 mg [...] DAILY FORMULA ORAL) Take by mouth daily. Allergies: Allergies Allergen Reactions ??? Sulfa(Sulfonamide Antibiotics) Hives Light lavender rash Soc Hx: History Substance Use Topics ??? Smoking status: Never Smoker ??? Smokeless tobacco: Not on file ??? Alcohol Use: 1.5 oz/week 3 drink(s) per week - [facility] [address] Fam Hx: Family History Problem Relation Age of Onset ??? Cancer Father bladder ??? Cancer Maternal Uncle bladder ??? Breast Cancer Paternal Aunt 35 ROS: See HPI Exam: Temp (24hrs), Av.1 ??C (97 ??F), Min:36.1 ??C (97 ??F), Max:36.1 ??C (97 ??F) Blood pressure 116/58, temperature 36.1 ??C (97 ??F), temperature source Tympanic, resp. rate 18, height 154.9 cm (61), weight 65.772 kg (145 lb), SpO2 99.00%. Gen: AO x 3 Resp: Non labored CV: ext wwp Abd: soft, midline incision nearly completely healed, one cm small area of erythema and minimal serous drainage on dressing Back: PSF incision with likely suture abscess over mid portion of wound. Approx 1.5cm area of wounddehiscence which tracks about 1cm down with Q-tip with some serous fibrinous drainage. No purulence, no foul odor, erythema spanning 3cm around sutures, some dried fibrinous material Lower Extremity: Strength Quad GS TA EHL Peroneal FHL Right 5 5 5 5 5 5 Left 5 5 5 5 5 5 Sensation: - light touch In tact T6-S2 Rectal Exam: No performed Vascular exam: DP PT Right 2 2 Left 2 2 Data Review Lab Results Component Value Date CRP <0.7 05/31/2005 Lab Results Component Value Date SEDRATE 7 07/13/2006 Imaging: AP/lat L spine- no change from post-op films. Hardware and fusion graft appear in tact. Assessment: 51 y.o. female with cellulitis surrounding posterior wound and 1cm area of wound dehiscence. Likelyhad a small suture abscess which is decompressed. Afebrile, Non-toxic, WBC normal. Patient Active Problem List Diagnoses ??? LGSIL on Pap Smear ??? Premature ovarian failure ??? HSV-2 infection ??? Unspecified menopausal and postmenopausal disorder ??? Routine gynecological examination ??? Lumbar radicular pain ??? Acquired spondylolisthesis ??? Lumbosacral spondylosis without myelopathy ??? Acquired absence of breast and nipple Plan: ?? PO Keflex x 7d ?? BID 1/4 inch wick dressing changes with Q-tip as instructed ?? F/u w/ Dr. Hanley as scheduled ?? Call his office or return to ED if develops, purulent drainage, fevers, if blood cultures turn positive Discussed with: Dr. Dayan Gutierrez MD documented in this encounter ED Notes * Billie Owens - 01/04/2012 1217 EDT Blood culture positive for S. Aureus Pt with positive blood culture for S Aureus in 1/4 bottles at 18 hours. Contacted patient for well check. Pt was very energetic on the phone and reported being afebrile, with the wound draining serosanguinous fluid. She denied any purulent drainage, extending redness, fever, and chills. Spent >20 minutes in direct consultation answering patient questions. Do not suspect systemic infection. Billie Owens, PharmD Pager [phone] * Antionette Norwood - 01/01/2012 1239 EDT Received call from [facility], reports 1 out of 4 blood culture bottles positive for gram + cocci resembling staph; more definitve report will be out tomorrow; discussed results with TANK Gonzalez who reports pt on antibiotics, no further action at this time; awaiting final report; * Kiana Quinn PA - 12/31/2011 2220 EDT Images from the original note were not included. DOS: 12/31/2011 Chief Complaint Patient presents with ??? Wound Check Pt to the emergency department for wound check. Had recent surgery. The wound is open, has drainage. Fountain out Tuesday, five sutures still in place. Site close to sutures open approx 1/4 inch with drainage. No fever. No redness. The patient is a 51 y.o. female who presents today with Wound Check HPI Comments: Patient is a 51-year-old female with a past medical history significant for L5-S1 decompression and spinal fusion on December 12, who presents to the ED for evaluation of a wound infection. Patient states that on Tuesday she had her leslie removed from her surgical incision by her primary care provider, and since that time her has noticed that she has some drainage and discharge from the incision. Patient states that she has intense pruritus to the vision, and has a slightly increased incisional pain. Patient denies fever, chills, headache, dizziness, chest pain, shortness ofbreath. Patient states that her preop symptoms have resolved. Patient's states he does not note an increase in erythema. Patient has had the incision covered with a dry sterile bandage. Remainder ROS negative. The history is provided by the patient and the spouse. Review of Systems Constitutional: Negative for fever, chills and activity change. HENT: Negative for neck pain and neck stiffness. Respiratory: Negative for shortness of breath. Cardiovascular: Negative for chest pain. Gastrointestinal: Negative for abdominal pain. Genitourinary: Negative for decreased urine volume and difficulty urinating. Patient denies incontinence, saddle paresthesia Musculoskeletal: Negative for myalgias, back pain, joint swelling and gait problem. Skin: Positive for wound (lumbar spine surgical incision). Pruritus Neurological: Negative for dizziness, weakness, light-headedness, numbness and headaches. All other systems reviewed and are negative. Past Medical History Diagnosis Date ??? 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 Allergy Past Surgical History Procedure Date ??? Breast surgery 01/30/2004 Right mastectomy ??? Breast reconstruction 01/30/2004 subpectoral implant ??? Carpal tunnel release 2007 ??? Lipoma resection 2000 Allergies Allergen Reactions ??? Sulfa(Sulfonamide Antibiotics) Hives Light lavender rash History Substance Use Topics ??? Smoking status: Never Smoker ??? Smokeless tobacco: Not on file ??? Alcohol Use: 1.5 oz/week 3 drink(s) per week Family History Problem Relation Age of Onset ??? Cancer Father bladder ??? Cancer Maternal Uncle bladder ??? Breast Cancer Paternal Aunt 35 Vital Signs Temp: 36.8 ??C (98.2 ??F) Temp src: Oral Pulse: 77 Heart Rate: 87 BPM Resp: 15 SpO2: 100 % SpCO: 0 % BP: 123/76 mmHg BP Device: BP Machine Patient Position: Sitting BP Cuff Location: Left arm O2 Device: None (Room air) Physical Exam Nursing note and vitals reviewed. Constitutional: She is oriented to person, place, and time. She appears well- developed and well-nourished. No distress. HENT: Head: Normocephalic and atraumatic. Right Ear: External ear normal. Left Ear: External ear normal. Eyes: Conjunctivae and EOM are normal. Neck: Normal range of motion. Cardiovascular: Normal rate, regular rhythm, normal heart sounds and intact distal pulses. Neurovascularly intact bilaterally, less than 3 second cap refill Pulmonary/Chest: Effort normal and breath sounds normal. No respiratory distress. She has no wheezes. She has no rales. She exhibits no tenderness. Abdominal: She exhibits distension (slight distentionto the abdomen, per patient improving since the surgery ). She exhibits no mass. There is tenderness (along abdominal incision, per patient improving since the surgery). There is no rebound and no guarding. Musculoskeletal: Normal range of motion. Lumbar back: She exhibits tenderness (minor jerry-incisional erythema), laceration and pain. She exhibits normal range of motion, no bony tenderness, no swelling, no edema, no deformity, no spasm and normal pulse. Back: Neurological: She is alert and oriented to person, place, and time. No cranial nerve deficit. Skin: Skin is warm and dry. She is not diaphoretic. Psychiatric: She has a normal mood and affect. Radiology orders: L SPINE 2-3 VIEWS L SPINE 2-3 VIEWS Final result not shown here.: Procedures ED Course: A medical screening exam was performed. Patient is a 51-year-old female who presents to the ED for evaluation of a surgical incision to the lumbar spine. Patient has not had fever or chills, per her has had some pus drainage from the incision. She was evaluated by orthopedics in the ED, they cleaned and packed her wounds. Patient will followup with orthopedics on 05 February, and is to return if her symptoms worsen, persist, or change prior to that. Patient was discharged home with Keflex. Patient, orthopedics, and her all agree with the plan. VSS, afebrile. Pt rating pain at 4/10, is well-appearing and resting in NAD. Discussed symptomatic measures and discharged to home with detailed instructions and closely recommended follow-up. Supervising Physician: Dimitris Disposition: Discharged The patient's pain was managed to an adequate level weighing risk vs. benefit of further medications. Upon departure from the Emergency Department, the patient's pain was 4 on a zero to ten scale. Condition at departure from the Emergency Department: Improved Discharge Prescriptions New Prescriptions CEPHALEXIN (KEFLEX) 500 MG CAPSULE Take 1 Cap by mouth 4 times daily for 7 days. MDM Number of Diagnoses or Management Options Wound infection: Diagnosis management comments: 3 Amount and/or Complexity of Data Reviewed Clinical lab tests: ordered and reviewed Tests in the radiology section of CPT??: ordered and reviewed Review and summarize past medical records: yes Independent visualization of images, tracings, or specimens: yes Patient Progress Patient progress: improved 1. Wound infection PCP: RAMSES BLANCAS DO 12/31/2011 22:20 * Roxana Hoang RN - 12/31/2011 4293 EDT Patient discharged ambulatory with her . Dressing supplies given to patient by Ortho * Ab Gauthier - 12/31/2011 1457 EDT Blood drawn via saline lock per protocol, tiger, purple and cultures from sit e #1 left AC tube(s) sent to lab per order. * Roxana Hoang, RN - 12/31/2011 1431 EDT Pepe is assisting me to obtain saline lock and blood draw. * Dasha Prasad - 12/31/2011 1200 EDT TCALL: SUNSHINE SUBRAMANIAN 62. Referred to ED by Mr. Hanley's office to see ortho resident for a wound that has opened up. Please page Ortho upon arrival (MJ) documented in this encounter Miscellaneous Notes * Scanned Note-Null - OPERATIONS SUPPORT REPRESENTATIVE, SCAN 2 - 01/05/2012 0704 EDT documented in this encounter Plan of Treatment Upcoming Encounters Date Type Department Care Team (Late st Contact Info) Description 04/02/2024 10:30 EDT Appointment [facility] Interventional Radiology Unit [address] [place] [id number] 04/02/2024 15:15 EDT Office Visit [facility] Surgical Oncology - [facility] [address] [place], [place] [phone] Adolfo Carreno MD [address] [facility], [address] [place] [phone] 04/05/2024 9:30 EDT Telemedicine [facility] Palliative Care Services [address] [place] [address] Chichi Woods MD [address] [place] [address] [address] [place] [phone] 04/11/2024 15:00 EDT Telemedicine [facility] Hematology & Oncology - [address] [address] Alisson Carreon MD [address] [place] [address], [address] [place] [phone] 04/13/2024 13:30 EDT Appointment [facility] Hematology & Oncology [address] [phone] 04/13/2024 14:00 EDT Appointment [facility] Hematology & Oncology [address] [phone] 04/16/2024 10:00 EST Telemedicine [facility] - [facility] Palliative Care Services [address] [place] [id number] Chichi Woods MD [address] [place] [phone] 04/24/2024 9:00 EST Appointment [facility] Radiology CT Outpatient - [address] [id number] 04/24/2024 11:00 EST Appointment [facility] Breast Imaging - [address] [id number] 04/27/2024 12:00 EST Appointment [facility] Hematology & Oncology - [address] [phone] 05/02/2024 15:00 EST Telemedicine [facility] Hematology & Oncology - [address] [phone] Alisson Carreon MD [address] [facility], [address] [place] [phone] 05/04/2024 10:15 EST Ancillary Procedure [facility] Cardiology - [place] [address] [place] [address] 05/04/2024 11:30 EST Appointment [facility] Hematology & Oncology - [address] [phone] 05/04/2024 12:00 EST Appointment [facility] Hematology & Oncology - [address] [phone] 06/12/2024 13:00 EST Appointment [facility] Radiology CT - [address] [phone] documented as of this encounter Procedures Procedure Name Priority Date/Time Associated Diagnosis Comments BACTERIAL CULTURE, BLOOD Routine 12/31/2011 14:27 EDT BACTERIAL CULTURE, BLOOD Routine 12/31/2011 14:27 EDT SCREENING GLUCOSE STAT 12/31/2011 14: 26 EDT SED RATE STAT 12/31/2011 14:26 EDT COMPLETE BLOOD COUNT AND DIFFERENTIAL STAT 12/31/2011 14:26 EDT C REACTIVE PROTEIN STAT 12/31/2011 14 :26 EDT BUN STAT 12/31/2011 14:26 EDT CREATININE STAT 12/31/2011 14:26 EDT ELECTROLYTES STAT 12/31/2011 14:26 EDT L SPINE 2-3 VIEWS STAT 12/31/2011 14: 19 EDT documented in this encounter Results * BACTERIAL CULTURE, BLOOD (12/31/2011 14:27 EDT) [facility] Specimen Description Blood Left Hand Total volume of blood collected: 20 ml [facility] Result STAPHYLOCOCCUS COAGULASE POSITIVE (STAPHYLOCOCCUS AUREUS) Isolated in one bottle. First detected at: 18 hours. [facility] Report Status 01/03/2012 Final [facility] ORGANISM STAPHYLOCOCCUS COAGULASE POSITIVE (STAPHYLOCOCCUS AUREUS) [facility] Blood specimen (specimen) 12/31/2011 14:27 EDT 12/31/2011 16:24 EDT Narrative Organism Antibiotic Method Susceptibility Staphylococcus coagulase positive (staphylococcus aureus) Susceptibility comment SUSCEPTIBILITY (CHARLA) SEE NOTES Comment: Susceptible to nafcillin, cephalosporins and other beta lactam antibiotics (mecA gene product absent). Staphylococcus coagulase positive (staphylococcus aureus) Oxacillin SUSCEPTIBILITY (CHARLA) 0.5: Susceptible Staphylococcus coagulase positive (staphylococcus aureus) Cefazolin SUSCEPTIBILITY (CAHRLA) Susceptible Staphylococcus coagulase positive (staphylococcus aureus) Ciprofloxacin SUSCEPTIBILITY (CHARLA) <=0.5: Susceptible Staphylococcus coagulase positive (staphylococcus aureus) Vancomycin SUSCEPTIBILITY (CHARLA) 1: Susceptible Comment: STAPHYLOCOCCUS COAGULASE POSITIVE (STAPHYLOCOCCUS AUREUS) Isolated in one bottle. First detected at: 18 hours. Kiana Quinn PA-C MICROBIOLOGY - GENERAL ORDERABLES Performing Organization Address City/[facility]/ZIP Co de Phone Number [facility] [address] [place] [address] * BACTERIAL CULTURE, BLOOD (12/31/2011 14:27 EDT) [facility] Specimen Description Blood Left Antecubital Total volume of blood collected: 20 ml [facility] Result No growth [facility] Report Status 01/05/2012 Final [facility] Blood specimen (specimen) 12/31/2011 14:27 EDT 12/31/2011 16:19 EDT Kiana Quinn PA-C MICROBIOLOGY - GENERAL ORDERABLES Performing Organization Address City/[facility]/ZIP Co de Phone Number [facility] [address] [place] [address] * (ABNORMAL) SED. RATE:ORION (12/31/2011 14:26 EDT) Sed. Rate Westergren 73(H) 0 - 30 mm/hr [facility] Blood specimen (specimen) 12/31/2011 14:26 EDT 12/31/2011 15:00 EDT Kiana Quinn PA-C HEMATOLOGY & PF4 ORDERABLES [facility] [address] [place] [address] * (ABNORMAL) HEMAGRAM AND DIFFERENTIAL (12/31/2011 14:26 EDT) Pathologist [facility] WBC 5.03 4.0 - 12.4 K/cmm [facility] RBC 3.33(L) 3.86 - 5.04 M/cmm [facility] Hemoglobin 11.2(L) 11.6 - 15.2 gm/dl [facility] HCT 31.9(L) 34.9 - 44.4 % [facility] MCV 96 81 - 98 fl [facility] MCH 33.7(H) 26.7 - 33.3 pg [facility] MCHC 35.2 32.1 - 35.9 gm/dl [facility] PLT 561(H) 141 - 320 K/cmm [facility] RDW-CV 12.8 11.7 - 14.6 % [facility] % Neutrophils 52.3 45.5 - 79.7 % [facility] % Lymphocytes 34.6 15.0 - 46.8 % [facility] % Monocytes 11.2 1.8 - 12.0 % [facility] % Eosinophils 1.1 0.6 - 6.9 % [facility] % Basophils 0.8 0.2 - 1.4 % [facility] ABS Neutrophils 2.63 2.20 - 8.85 K/cmm [facility] ABS Lymphs 1.74 1.09 - 3.30 K/cmm [facility] ABS Monocytes 0.56 0.1 - 0.8 K/cmm [facility] ABS Eosinophils 0.06 0.03 - 0.61 K/cmm [facility] ABS Basophils 0.04 0.01 - 0.11 K/cmm [facility] Type of Diff: Automated [facility] Blood specimen (specimen) 12/31/2011 14:26 EDT 12/31/2011 15:00 EDT Kiana Quinn PA-C PACKAGES & D NA PROBE ORDERABLES Performing Organization Address [facility] Co de Phone Number [facility] [address] [place] [address] * (ABNORMAL) C-REACTIVE PROTEIN (12/31/2011 14:26 EDT) C-Reactive Protein 4.6(H) <1.0 mg/dl [facility] Blood specimen (specimen) 12/31/2011 14:26 EDT 12/31/2011 15:00 EDT Kiana Quinn PA-C CHEMISTRY & BLOOD GAS ORDERABLES Performing Organization Address [facility] Phone Number [facility] [address] [place] [address] * CREATININE (12/31/2011 14:26 EDT) Pathologist [facility] Creatinine 0.67 0.52 - 1.04 mg/dl [facility] GFR, Calculated >60 >60 ml/min/1.7 3m2 [facility] Blood specimen (specimen) 12/31/2011 14:26 EDT 12/31/2011 15:00 EDT Kiana Quinn PA-C CHEMISTRY & BLOOD GAS ORDERABLES Performing Organization Address [facility] de Phone Number [facility] [address] [place] [address] * BUN (12/31/2011 14:26 EDT) BUN 14 10 - 26 mg/dl [facility] Blood specimen (specimen) 12/31/2011 14:26 EDT 12/31/2011 15:00 EDT Kiana Quinn PA-C CHEMISTRY & BLOOD GAS ORDERABLES Performing Organization Address [facility] de Phone Number [facility] [address] [place] [address] * ELECTROLYTES (12/31/2011 14:26 EDT) Sodium 140 136 - 145 mEq/L [facility] Potassium 4.4 3.5 - 5.0 mEq/L [facility] Chloride 101 96 - 110 mEq/L [facility] CO2 30 24 - 32 mEq/L [facility] Blood specimen (specimen) 12/31/2011 14:26 EDT 12/31/2011 15:00 EDT Kiana Quinn PA-C CHEMISTRY & BLOOD GAS ORDERABLES Performing Organization Address [facility] de Phone Number [facility] [address] [place] [address] * SCREENING GLUCOSE (12/31/2011 14:26 EDT) Glucose, Screening 83 70 - 100 mg/dl [facility] Blood specimen (specimen) 12/31/2011 14:26 EDT 12/31/2011 15:00 EDT Kiana Quinn PA-C CHEMISTRY & BLOOD GAS ORDERABLES Performing Organization Address [facility] Phone Number [facility] [address] [place] [address] * L SPINE 2-3 VIEWS (12/31/2011 14:19 EDT) Anatomical Region Laterality Modality Other 12/31/2011 14:1 9 EDT 12/31/2011 16:16 EDT Narrative 12/31/2011 16:16 EDT L SPINE 2-3 VIEWS ??Dec 31, 2011 02:19:00 PM Signs and Symptoms/Comments: ??Wound infection lumbar spine Comparison: Radiographs of the lumbar spine December 15, 2011 Findings: AP and lateral radiographic views of the lumbar spine again demonstrate bilateral posterior plates with pedicle screws from L3 through S1. Intervertebral and lateral graft material is again present. There has been interval removal of surgical leslie. A calcified mass, likely representing a fibroid is again seen in the lower right pelvis. Bony alignment is unchanged from the prior study. There is no evidence of hardware failure . There is some lucency noted in the bone graft material at the left side of the lumbar 3 level. Surgical clips are again seen. There are no cortical irregularities to suggest osteomyelitis. There are no acute fractures. Impression: Lucency near bone graft material at the lumbar 3 level on the left near superior most pedicle screw. Cannot completely rule out infection of graft material at that level I have personally reviewed the images and the above interpretation and agree with the findings. Procedure Note Carlos Jang MD - 12/31/2011 L SPINE 2-3 VIEWS Dec 31, 2011 02:19:00 PM Signs and Symptoms/Comments: Wound infection lumbar spine Comparison: Radiographs of the lumbar spine December 15, 2011 Findings: AP and lateral radiographic views of the lumbar spine again demonstrate bilateral posterior plates with pedicle screws from L3 through S1. Intervertebral and lateral graft material is again present. There has been interval removal of surgical leslie. A calcified mass, likely representing a fibroid is again seen in the lower right pelvis. Bony alignment is unchanged from the prior study. There is no evidence of hardware failure . There is some lucency noted in the bone graft material at the left side of the lumbar 3 level. Surgical clips are again seen. There are no cortical irregularities to suggest osteomyelitis. There are no acute fractures. Impression: Lucency near bone graft material at the lumbar 3 level on the left near superior most pedicle screw. Cannot completely rule out infection of graft material at that level I have personally reviewed the images and the above interpretation and agree with the findings. Kiana Quinn PA-C IMG DIAGNOST IC IMAGING ORDERABLES documented in this encounter Visit Diagnoses Diagnosis Wound infection Posttraumatic wound infection not elsewhere classified documented in this encounter Orders Nursing Count Last Ordered Date First Orde red Date INSERT PERIPHERAL IV 1 12/31/2011 documented in this encounter Care Teams Methods Specialist Relationship Specialty Start Date End Date Ramses Blancas MD [address] [place] [address] PCP - General 01/06/11 documented as of this encounter
--- OUTSIDE RECORDS SUMMARY | 2024-03-20 15:12 | XMS_ITS | Encounter Summary ---
Author Organization [facility] Address [address] [place] [address] Care Team Providers Care Funeral Assistant Name Role Phone Linda Blancas MD Primary Care Provider [phone] Reason for Visit * Reason Onset Date Comments Suture / Staple Removal 12/20/2011 Encounter Details Date Type Department Care Team (Late st Contact Info) Description 12/20/2011 Orders Only [facility] Spine Program - [address] [place] [address] Anusha Norwood, RN [address] [place] [address] Acquired spondylolisthesis (Primary Dx) Social History Tobacco [...] [facility] [address], [place] [id number] 04/02/2024 15:15 EDT Office Visit [facility] Surgical Oncology - [address] [phone] Adolfo Carreno MD [address] [place] [address] 2 [place] [phone] 04/05/2024 9:30 EDT Telemedicine [facility] Palliative Care Services [address] [place] [address] [phone] Chichi Woods MD [address] [place] [address] [phone] 04/11/2024 15:00 EDT Telemedicine [facility] Hematology & Oncology - [address] [phone] Alisson Carreon MD [address] [place] [address] [phone] 04/13/2024 13:30 EDT Appointment [facility] Hematology & Oncology - [address] [phone] 04/13/2024 14:00 EDT Appointment [facility] Hematology & Oncology - [address] [address] 04/16/2024 10:00 EST Telemedicine [facility] Palliative Care Services [address] [place] [address] [phone] Chichi Woods MD [address] [place] [address] [phone] 04/24/2024 9:00 EST Appointment [facility] Radiology CT Outpatient - [address] [id number] 04/24/2024 11:00 EST Appointment [facility] Breast Imaging - [facility] [address] [place] [address] [place] [address] 04/27/2024 12:00 EST Appointment [facility] Hematology & Oncology - [address] [address] 05/02/2024 15:00 EST Telemedicine [facility] Hematology & Oncology - [address] [address] Alisson Carreon MD [address] [place] [address], Level [address] [place] [phone] 05/04/2024 10:15 EST Ancillary Procedure [facility] Cardiology - [address] [place] [address] 05/04/2024 11:30 EST Appointment [facility] Hematology & Oncology - [address] [address] 05/04/2024 12:00 EST Appointment [facility] Hematology & Oncology - [address] [address] 06/12/2024 13:00 EST Appointment [facility] Radiology CT - [address] [phone] documented as of this encounter Visit Diagnoses Diagnosis Acquired spondylolisthesis- Primary documented in this encounter Orders General Supply Count Last Ordered Date First Or dered Date STAPLE REMOVAL 1 12/20/2011 documented in this encounter Care Teams Funeral Assistant Relationship Specialty Start Date End Date Linda Blancas MD [facility] [address] [place] [address] PCP - General 01/06/11 documented as of this encounter
--- OUTSIDE RECORDS SUMMARY | 2024-03-20 15:12 | XMS_ITS | Encounter Summary ---
Author Organization [facility] Address [address] [place] [address] Care Team Providers Care Medical Surgical Tech Name Role Phone Linda Blancas MD Primary Care Provider [phone] Encounter Details Date Type Department Care Team (Late st Contact Info) Description 02/25/2012 Results Only Imaging [facility] Surgical Oncology [address] [id number] Damian Brooke ANP Social History Tobacco Use Types Packs/Day Years [...] Info) Description 04/02/2024 10:30 EDT Appointment [facility] Interventional Radiology Unit [address] [place] [address] [phone] 04/02/2024 15:15 EDT Office Visit [facility] Oncology [address] [phone] Adolfo Carreno MD [address] [place] [address] 2 [place] [phone] 04/05/2024 9:30 EDT Telemedicine [facility] [place] Palliative Care Services [address] [place] [address] [phone] Chichi Woods MD [address] [place] [address] [phone] 04/11/2024 15:00 EDT Telemedicine [facility] Hematology & Oncology - [address] 916321 Alisson Carreon MD [address] [place] [address] 2 [place] [phone] 04/13/2024 13:30 EDT Appointment [facility] Hematology & Oncology - [address] [phone] 04/13/2024 14:00 EDT Appointment [facility] Hematology & Oncology - [address] [phone] 04/16/2024 10:00 EST Telemedicine [facility] - [facility] Palliative Care Services [address] [place] [address] [phone] Chichi Woods MD [address] [place] [address] [phone] 04/24/2024 9:00 EST Appointment [facility] Radiology CT Outpatient - [address] [id number] 04/24/2024 11:00 EST Appointment [facility] Breast Imaging - [address] [phone] 04/27/2024 12:00 EST Appointment [facility] Hematology & Oncology [address] [address] 05/02/2024 15:00 EST Telemedicine [facility] Hematology & Oncology [address] [address] Alisson Carreon MD [address] [place] [address], Level [address] [place] [phone] 05/04/2024 10:15 EST Ancillary Procedure [facility] Cardiology - [address] [place] [address] 05/04/2024 11:30 EST Appointment [facility] Hematology & Oncology [address] [address] 05/04/2024 12:00 EST Appointment [facility] Hematology & Oncology [address] [address] 06/12/2024 13:00 EST Appointment [facility] Radiology CT - [address] 672201 documented as of this encounter Procedures Procedure Name Priority Date/Time Associated Diagnosis Comments PA MAMMO SCREENING DIGITAL 09/12/2012 10:43 EDT documented in this encounter Results * PA MAMMO SCREENING DIGITAL (09/12/2012 10:43 EDT) Anatomical Region Laterality Modality Other 09/12/2012 10:4 3 EDT 09/13/2012 12:49 EDT Narrative 09/13/2012 12:49 EDT Comparison has been made to previous [...] will contact your patient directly. Procedure Note 09/13/2012 Comparison has been made to previous images. [...] needed we will contact your patient directly. Damian SUAREZ IMG MAMMOGRAPHY JAIMEE ACOSTA documented in this encounter Visit Diagnoses Not on filedocumented in this encounter Care Teams Medical Surgical Tech Relationship Specialty Start Date End Date Linda Blancas MD [facility] [address] [place] [address] PCP - General 01/06/11 documented as of this encounter
--- OUTSIDE RECORDS SUMMARY | 2024-03-20 15:12 | XMS_ITS | Encounter Summary ---
Author Organization [facility] Address [address] [place] [address] Care Team Providers Care Housetrailer Servicer Name Role Phone Linda Blancas MD Primary Care Provider [phone] Reason for Visit * Reason Onset Date Comments Medications Refill 12/22/2011 Encounter Details Date Type Department Care Team (Late st Contact Info) Description 12/22/2011 Telephone [facility] Spine Program [place] [address] Anusha Norwood, RN [address] [place] [address] Medications Refill Social History Tobacco Use Types [...] for pain. 168 Tab 0 12/22/2011 01/07/2012 documented in this encounter Miscellaneous Notes * Telephone Encounter - Anusha Norwood, RN - 12/22/2011 1412 EDT Pt needing refill on pain medication. Pt has weaned down to 2 tablets every 4 hours. Prescription mailed to pt. documented in this encounter Plan of Treatment Upcoming Encounters Date Type Department Care Team (Late st Contact Info) Description 04/02/2024 10:30 EDT Appointment [facility] Interventional Radiology Unit [address] [place] [address] [phone] 04/02/2024 15:15 EDT Office Visit [facility] Surgical Oncology - [address] [phone] Adolfo Carreno MD [address] [place] [address] [phone] 04/05/2024 9:30 EDT Telemedicine [facility] Palliative Care Services [address] [place] [address] [phone] Chichi Woods MD [address] [place] [address] [phone] 04/11/2024 15:00 EDT Telemedicine [facility] Hematology & Oncology [address] 876121 Alisson Carreon MD [address] [place] [address] [phone] 04/13/2024 13:30 EDT Appointment [facility] Hematology & Oncology [address] [phone] 04/13/2024 14:00 EDT Appointment [facility] Hematology & Oncology [address] 856221 04/16/2024 10:00 EST Telemedicine [facility] - [facility] Palliative Care Services [address] [place] [address] [phone] Chichi Woods MD [address] [place] [address], [address] [phone] 04/24/2024 9:00 EST Appointment [facility] Radiology CT Outpatient - [address] 732781 04/24/2024 11:00 EST Appointment [facility] Breast Imaging - [facility] [address] [place] [address] [place], [place] [address]1991 04/27/2024 12:00 EST Appointment [facility] Hematology & Oncology - [address] [phone] 05/02/2024 15:00 EST Telemedicine [facility] Hematology & Oncology - [address] [phone] Alisson Carroen MD [address] [place] [address], Level [address] [place] [phone] 05/04/2024 10:15 EST Ancillary Procedure [facility] Cardiology - [place] [address] 05/04/2024 11:30 EST Appointment [facility] Hematology & Oncology - [address] [phone] 05/04/2024 12:00 EST Appointment [facility] Hematology & Oncology [address] [phone] 06/12/2024 13:00 EST Appointment [facility] Radiology CT - [address] [phone] documented as of this encounter Visit Diagnoses Not on filedocumented in this encounter Discontinued Medications Medication Sig Discontinue Reason Start Date End Da te oxycodone (ROXICODONE) 5 mg immediate release tablet Take 1-3 Tabs by mouth every 4 hours as needed for Pain (wean off as able, hold for somnolence). Reorder 12/16/2011 12/22/2011 documented as of this encounter Care Teams Housetrailer Servicer Relationship Specialty Start Date End Date Linda Blancas MD [address] [place] [address] PCP - General 01/06/11 documented as of this encounter
--- OUTSIDE RECORDS SUMMARY | 2024-03-20 15:13 | XMS_ITS | Encounter Summary ---
Author Organization [facility] Address [address] [place] [address] Care Team Providers Care Ludlow Machine Operator Name Role Phone Linda Blancas MD Primary Care Provider [phone] Reason for Visit * Reason Comments Back Pain Right Encounter Details Date Type Department Care Team (Latest Contact Info) Description 10/01/2011 14:15 EDT Office Visit [facility] Interventional Pain [address] [place] [address] Unknown, Provider, Chin Gregory DO [address] [phone] Tre Lopez MD [place], [place] [id number] Lumbar radicular pain (Primary Dx) Social History Tobacco Use Types [...] Sign Reading Time Taken Comments Blood Pressure 112/60 10/01/2011 1510 EDT Pulse 82 10/01/2011 1510 EDT Temperature 36.8 ??C (98.2 ??F) 10/01/2011 1419 EDT Respiratory Rate 16 10/01/2011 1510 EDT Oxygen Saturation - - Inhaled Oxygen Concentration - - Weight 67.1 kg (148 lb) 10/01/2011 1419 EDT Height 157.5 cm (5' 2) 10/01/2011 1419 EDT Body Mass Index 27.07 10/01/2011 1419 EDT documented in this encounter Patient Instructions * Patient Instructions* Tammi Gutierrez RN - 10/01/2011 15:12 EDT [facility] [place] [address] Patient Instructions You have had your Right hip injectionToday please stay busy/active doing things that would normallycause you pain. Keep track of your hours of relief and your percentage of relief today (0 to 100 , 0 = no relief and 100% being total relief). Separate the pressure and tightness that we caused you from your regular pain and see what your relief is. Call us back tomorrow with this information. Procedure end time:____3:10 pm Pain relief start time Returned to baseline pain The purpose of this procedure has been to place medication which may help relieve your pain. Steroid may be used to decrease the swelling and nerve irritation which may be causing your pain. The following information should help you over the next few days regarding what you may expect. DO NOT drive a car for the remainder of the day. If you feel sore where the needle(s) entered for the block or develop a flare-up of pain over the next few days, please use ice on the area. You may leave the ice on for up to 20 minutes at a time. Do not use heat, as this may cause swelling. As long as your primary doctor has indicated no restrictions, you may take a mild pain medicine, such as acetaminophen (Tylenol), ibuprofen (Advil, Nuprin, Motrin IB, etc.) or aspirin, if needed. The steroid injection usually takes a few days to become effective. On average, you may notice somerelief in 3 -5 days. However, it may take up to 10 - 14 days to know whether the injection was helpful. If the block causes numbness/weakness, it should wear off within a few hours. If the area that the needle(s) were inserted becomes hot, red, swollen, or increasingly tender, or if you develop a fever (100.5 or greater) or chills along with these symptoms, please call our office immediately. If you develop increasingly severe neck/back pain, continued numbness or weakness of the arms/legs or changes in your bladder or bowel functions, please call our office at once. Instructions for follow-up If you have any questions about your block, please call Patient Education Topic: Method: Handout Taught to: Patient Barriers: None Outcomes: independent and verbalized understanding Signature:TAMMI GUTIERREZ RN documented in this encounter Progress Notes * Tre Lopez - 10/01/2011 1428 EDT Patient Name: Sunshine Pleitez : 1960 Date of Service: 10/01/2011 Law Professor: Chin Gregory DO Spray Gun Striper: Elias Lopez MD Procedure: Right Intraarticular Hip Injection Pre-procedure Diagnosis: Chronic Hip pain Post-procedure Diagnosis: Chronic Hip pain Interval History Ms. Pleitez presents at the request of Tylor Anthony for evaluation and treatment of her right hip and thigh pain. The pain is described as sharp and aching in character. The average pain intensity is 9/10 and is aggravated when it is aggravated by physical activities. Resting/lying down alleviates the pain. No associated symptoms such as bladder incontinence, bowel incontinence, fever, headaches, numbness, paresthesias, tingling or weakness. Response to conservative measures has been marginal. She had a right L3-L4 and L4-L5 foramen on 02/21. That injection gave 2 weeks of 60-70% relief. MRI 09/22 Impression: 1. Lumbar degenerative disc and degenerative joint disease. 2. Multilevel lumbar listhesis. 3. Lateral recess narrowing on the right at L3-L4. 4. Neuroforaminal stenosis bilaterally at L3-L4, L4-L5 and on the left at L5-S1. 5. Small bilateral hip joint effusions. Allergies: Allergies Allergen Reactions ??? Sulfa(Sulfonamide Antibiotics) Hives Review of Systems: Patient denies fevers, nausea, vomitting, headaches, dizziness, or visual changes. Patient denies any known coagulopathies. Patient denies shortness of breath or chest pain. Patient denies bowel or bladder incontinence. Physical Examination: Blood pressure 112/60, pulse 79, temperature 36.8 ??C (98.2 ??F), temperature source Tympanic, resp. rate 18, height 157.5 cm (62), weight 67.132 kg (148 lb). GENERAL: The pt is alert and oriented x3, casually dressed and well groomed. Mood and affect are congruent. HEENT: NCAT. EOMI. Anicteric sclerae. Noninjected conjunctivae. NEUROLOGIC: Cranial nerves II through XII are grossly intact. NECK: No rashes or skin breakdown. CARDIOPULMONARY: Unlabored breathing. EXTREMITIES: No clubbing, cyanosis or edema. MUSCULOSKELETAL: antalgic gait. Strength in the upper arms is grossly intact. No tenderness to palpation over the area of the lumbosacral spine and positive for lumbar facet loading maneuvers. MOTOR:Left 5/5 on hip flexion,5/5 knee flexion/extension, and 5/5 ankle plantar and dorsiflexion. Right 5/5 on hip flexion,5/5 knee flexion/extension, and 5/5 ankle plantar and dorsiflexion. Assessment: Chronic right hip pain Plan: Proceed with intraarticular right hip injection. Follow up: within 24 hrs by telephone to report results of diagnostic injection She has f/u with [facility] Procedure: The patient signed a consent form after we fully discussed the risks and benefits of the procedure and all questions were asked and answered. A hood moment was performed with everyone present to verify patient identification, procedure being performed and allergies. The patient was then placed inthe supine position on the fluoroscopy table and the hip was prepped with chlorhexadine and draped in sterile fashion. Flouroscopy was used to identify the appropriate anatomy of the hip joint. The skin and subcutaneous tissue was anesthetized with 2% lidocaine over the entry point for the spinal needle. A 22 guage 3.5 inch spinal needle was inserted and guided with fluoroscopic guidance into theaforementioned joint. Anterior-posterior and lateral views were taken to verify appropriate needle tip placement. Then 2 ml???s of Isovue 200 contrast was injected to reveal an intraarticular spread with fluoroscopic guidance. There was negative aspiration of heme and no intravascular spread visualized with fluoroscopy. After negative aspiration, the joint was injected with 4 ml of 0.5% Bupivacaine and 40 mg Depo-Medrol. The needle was then flushed and removed. There was no paresthesia during needle placement and aspiration was negative at all times. The patient tolerated the procedure well and there were no apparent complications. Written and verbal discharge instructions were reviewed with the patient prior to discharge. Attending attestation: I saw and examined the patient with the resident/fellow. I agree with the findings and plan of care documented in the resident's/fellow's note. In addition, I was present and participated during the entire procedure. CHIN GREGORY MD - * Tammi Gutierrez RN - 10/01/2011 1421 EDT [facility] Rooming Note Does patient have a Financial Reporting Consultant? Wait for van cdl driver Is patient NPO? (Solids since midnight & liquids for 4 hrs) Blood Thinners: Is patient on Blood Thinners? no If yes, taking? If stopped, who authorized stopping? Related comments: Infections: Any recent infections, fever of illnesses? nono If on antibiotics, is it 7-10 days past the date of completion of antibiotics? : (for females of child-bearing age) Is there a chance current ? Other: documented in this encounter Miscellaneous Notes * Scanned Note-Null - RESIDENTIAL SALES ASSOCIATE, SCAN 2 - 10/05/2011 1448 EDT documented in this encounter Plan of Treatment Upcoming Encounters Date Type Department Care Team (Late st Contact Info) Description 04/02/2024 10:30 EDT Appointment [facility] Interventional Radiology Unit [address] [place] [address] [phone] 04/02/2024 15:15 EDT Office Visit [facility] Surgical Oncology - [address] [phone] Adolfo Carreno MD [address] [place] [address] [phone] 04/05/2024 9:30 EDT Telemedicine [facility] Palliative Care Services [address] [place] [address] [phone] Chichi Woods MD [address] [place] [address] [phone] 04/11/2024 15:00 EDT Telemedicine [facility] Hematology & Oncology - [address] [phone] Alisson Carreon MD [address] [place] [address] [phone] 04/13/2024 13:30 EDT Appointment [facility] Hematology & Oncology [address] [phone] 04/13/2024 14:00 EDT Appointment [facility] Hematology & Oncology [address] [phone] 04/16/2024 10:00 EST Telemedicine [facility] Palliative Care Services [address] [place] [address] [phone] Chichi Woods MD [address] [place] [address] [phone] 04/24/2024 9:00 EST Appointment [facility] Radiology CT Outpatient - [address] [address] 04/24/2024 11:00 EST Appointment [facility] Breast Imaging - [facility] [address] [place] [address] 04/27/2024 12:00 EST Appointment [facility] Hematology & Oncology - [address] [address] 05/02/2024 15:00 EST Telemedicine [facility] Hematology & Oncology [address] [phone] Alisson Carreon MD [address] [place] [address], [address] [place] [phone] 05/04/2024 10:15 EST Ancillary Procedure [facility] Cardiology - [address] [place] [address] 05/04/2024 11:30 EST Appointment [facility] Hematology & Oncology - [address] [address] 05/04/2024 12:00 EST Appointment [facility] Hematology & Oncology [address] [phone] 06/12/2024 13:00 EST Appointment [facility] Radiology CT - [address] [phone] documented as of this encounter Visit Diagnoses Diagnosis Lumbar radicular pain- Primary Thoracic or lumbosacral neuritis or radiculitis, unspecified documented in this encounter Discontinued Medications Medication Sig Discontinue Reason Start Date End Da te IBUPROFEN ORAL Take by mouth as needed. Duplicate Therapy 09/30 documented as of this encounter Care Teams Ludlow Machine Operator Relationship Specialty Start Date End Date Linda Blancas MD [facility] [address] [place] [address] PCP - General 01/06/11 documented as of this encounter
--- OUTSIDE RECORDS SUMMARY | 2024-03-20 15:13 | XMS_ITS | Encounter Summary ---
Author Organization [facility] Address [address] [place] [address] Care Team Providers Care Road Inspector Name Role Phone Linda Blancas MD Primary Care Provider [phone] Reason for Visit * Reason Onset Date Comments Results 10/06/2011 Encounter Details Date Type Department Care Team (Late st Contact Info) Description 10/06/2011 Telephone [facility] Interventional Pain [address] [place] [address] Cecilio Paiz RN Results Social History Tobacco Use Types [...] encounter Miscellaneous Notes * Telephone Encounter - Cecilio Paiz RN - 10/06/2011 1610 EDT Results documented documented in this encounter Plan of Treatment Upcoming Encounters Date Type Department Care Team (Late st Contact Info) Description 04/02/2024 10:30 EDT Appointment [facility] Interventional Radiology Unit [address] [place], [place] [address] 04/02/2024 15:15 EDT Office Visit [facility] Surgical Oncology - [address] [place] [address] [phone] Adolfo Carreno MD [address] [place] [address] [address] [place] [phone] 04/05/2024 9:30 EDT Telemedicine [facility] Palliative Care Services [address] [place] [address] [phone] Chichi Woods MD [address] [place] [address] [phone] 04/11/2024 15:00 EDT Telemedicine [facility] Hematology & Oncology - [address] [place] [address] [address] Alisson Carreon MD [address] [place] [address] [phone] 04/13/2024 13:30 EDT Appointment [facility] Hematology & Oncology - [address] [place] [address] [phone] 04/13/2024 14:00 EDT Appointment [facility] Hematology & Oncology - [address] [place] [address] [address] 04/16/2024 10:00 EST Telemedicine [facility] Palliative Care Services [address] [place] [address] [phone] Chichi Woods MD [address] [place] [address] [phone] 04/24/2024 9:00 EST Appointment [facility] Radiology CT Outpatient - [address] [phone] 04/24/2024 11:00 EST Appointment [facility] Breast Imaging - [facility] [address] [place] [address] 04/27/2024 12:00 EST Appointment [facility] Hematology & Oncology - [address] [place] [address] [address] 05/02/2024 15:00 EST Telemedicine [facility] Hematology & Oncology - [address] [place] [address] [address] Alisson Carreon MD [address] [place] [address], [address] [place] [phone] 05/04/2024 10:15 EST Ancillary Procedure [facility] Cardiology - [address] [place] [address] 05/04/2024 11:30 EST Appointment [facility] Hematology & Oncology - [address] [place] [address] [address] 05/04/2024 12:00 EST Appointment [facility] Hematology & Oncology - [address] [place] [address] [phone] 06/12/2024 13:00 EST Appointment [facility] Radiology CT - [address] [phone] documented as of this encounter Visit Diagnoses Not on filedocumented in this encounter Care Teams Road Inspector Relationship Specialty Start Date End Date Linda Blancas MD [facility] [address] [place] [address] PCP - General 01/06/11 documented as of this encounter
--- OUTSIDE RECORDS SUMMARY | 2024-03-20 15:13 | XMS_ITS | Encounter Summary ---
Author Organization [facility] Address [address] [place] [address] Care Team Providers Care Marble Cutter Name Role Phone Linda Blancas MD Primary Care Provider [phone] Reason for Referral * Consult (Routine) - Closed Specialty Diagnoses / Procedures Referred By Contac t Referred To Contact Pain Medicine Diagnoses Lumbar radiculopathy Low back pain Tylor Anthony PA-C [address] [place] [phone] [facility] [address] [place] [address] Referral ID Status Reason Start Date Expiration Date V isits Requested Visits Authorized [id number] Closed Specialty Services Required 01/07/2011 1 1 Question Answer Reason for Request: TFESI at L3-4 right Reason for Visit * Reason Comments New Patient Visit Back Pain Encounter Details Date Type Department Care Team (Late st Contact Info) Description 01/07/2011 9:[address] [facility] Spine [facility] [place] [address] [place] [address] Tylor Anthony PA-C [address] [place] [phone] Low back pain (Primary Dx); Lumbar radiculopathy Social History Tobacco Use Types Packs/Day Years [...] - - Weight 68 kg (150 lb) 01/07/2011 0950 EDT Height 157.5 cm (5' 2) 01/07/2011 0950 EDT Body Mass Index 27.44 01/07/2011 0950 EDT documented in this encounter Progress Notes * Tylor Anthony PA - 01/07/2011 1328 EDT Sunshine Padilla is being seen as a consultation from Dr. Blancas. Chief Complaint Patient presents with ??? New Patient Visit ??? Back Pain The encounter diagnosis was Low back pain. HPI The patient notes that in August she was playing golf and played 18 holes, had not done so in 10years, and woke up the next morning with severe back pain, associated right lower extremity symptoms radiating to the hip, anterior thigh to the knee. Occasionally, it does go beyond the kneecap, butrarely. Since its onset, her symptoms have improved by 30% but are persistent. Her back pain is a constant dull ache and leg symptoms are persistent as well, exacerbated by walking, standing and typically worse at the end of the day. She finds relief with leaning forward, sitting against the wall and lying down, stretching her quads. She has seen a physical therapist and undergone direct care specialist with little relief of her symptoms, states 70% of her discomfort is focused in the leg, 30% in her back with a discomfort rating of 8+, 10 at its worst, 4 at its best on a scale of 1 to 10. HPI Patient Active Problem List Diagnoses Code ??? 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 Premature ovarian failure 256.8Q ??? 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 Unspecified menopausal and postmenopausal disorder 627.9 ??? Routine gynecological examination V72.31 Past Medical History Diagnosis Date ??? Breast cancer November 2003 DCIS - right breast Past Surgical History Procedure Date ??? Breast surgery 01/30/2004 Right mastectomy ??? Breast reconstruction 01/30/2004 subpectoral implant ??? Carpal tunnel release 2007 ??? Lipoma resection 2000 History Substance Use Topics ??? Smoking status: Never Smoker ??? Smokeless tobacco: Not on file ??? Alcohol Use: 1.5 oz/week 3 drink(s) per week History reviewed. No pertinent family history. Current outpatient prescriptions Medication Sig Dispense Refill ??? gabapentin (NEURONTIN) 300 mg capsule Take 1 Cap by mouth at bedtime. 90 Cap 3 ??? venlafaxine (EFFEXOR-XR) 150 mg XR capsule Take 1 Cap by mouth daily. Take 150 mg by mouth daily. 90 Cap 3 ??? ibandronate (BONIVA) 150 mg tablet Take 1 Tab by mouth every 30 days. 3 Tab 4 ??? valACYclovir (VALTREX) 500 mg tablet Take 1 Tab by mouth daily. 90 Tab 3 ??? RED YEAST RICE EXTRACT ORAL Take by mouth daily. ??? DOXYLAMINE SUCCINATE (UNISOM ORAL) Take by mouth. ??? FAMOTIDINE/CALCIUM CARB/MAG (PEPCID COMPLETE ORAL) Take by mouth as needed. ??? IBUPROFEN ORAL Take by mouth as needed. ??? Testosterone (ANDROGEL) 1.25 g/Actuation GlPm Place onto the skin three times a week. 1 pump three times per week 75 g 3 ??? MULTIVITS W-CA,FE,OTHER MIN (WOMEN'S DAILY FORMULA ORAL) Take by mouth daily. ??? estradiol (VAGIFEM) [address] 1 Tab vaginally twice a week. 24 Tab 3 Allergies Allergen Reactions ??? Sulfa (Sulfonamide Antibiotics) Hives Review of Systems Constitutional: Positive for activity change. HENT: Negative for neck pain. Eyes: Negative for visual disturbance. Respiratory: Negative for wheezing. Cardiovascular: Negative for palpitations. Gastrointestinal: Negative for constipation. Genitourinary: Negative for difficulty urinating. Musculoskeletal: Positive for back pain. Skin: Negative for pallor. Neurological: Negative for headaches. Psychiatric/Behavioral: The patient is nervous/anxious. Physical Exam Constitutional: She is oriented to person, place, and time. She appears well- developed and well-nourished. No distress. Eyes: Extraocular motions are normal. Cardiovascular: Normal rate. Pulmonary/Chest: Effort normal. Neurological: She is alert and oriented to person, place, and time. Skin: Skin is warm and dry. Back Exam Comments: Gait is normal heel toe walking is normal No lesions rashes or hair vito palp tendernessFROM hands to the floor Strength 5/5 soft touch diminished lateral right right as a result of an old laceration 0 on the right 2 at the left knee 1 at the ankle Reflexes DP2 babinski is down there isno clonus supine SLR right: neg Left: neg Hips have FROM Neurologic Exam Mental Status Oriented to person, place, and time. Cranial Nerves CN III, IV, Extraocular motions are normal. The prior workup of the patient includes: No prior workup Films today reveal a Grade I isthmic spondy at L3-4 that is mobile in flex ext there is also a Grade I isthmic spondy at L4-5 that is only mildly mobile Assessment Musculoskeletal discogenic back pain with a right L3/L4 lumbar radiculopathy. We reviewed multiple options including expectant management, PT, injection therapy and surgery. At this point she would like to consider injections but is not interested in a surgical consult. Her radiographic findings are likely chronic and not in need of a surgical assessment at this point. Other Orders Placed This Visit Procedure ??? L spine 4 or more views Plan:TFESI at L3-4 on the right Phone follow up 2 weeks post Activity as tolerated with reduced rotation exercises until this improves, I would not recommend chiropractic manipulations at this point documented in this encounter Plan of Treatment Upcoming Encounters Date Type Department Care Team (Late st Contact Info) Description 04/02/2024 10:[address] [facility] Interventional Radiology Unit [address] [place] [address] 04/02/2024 15:[address] [facility] Surgical Oncology - [address] [address] Aodlfo Carreno MD [address] [facility], Level [address] [place] [phone] 04/05/2024 9:30 EDT Telemedicine [facility] Palliative Care Services [address] [place] [address] [phone] Chichi Woods MD [address] [place] [phone] 04/11/2024 15:00 EDT Telemedicine [facility] Hematology & Oncology - [address] [phone] Alisson Carreon MD [address] [place] [address] 2 [place] [phone] 04/13/2024 13:30 EDT Appointment [facility] Hematology & Oncology - [address] [phone] 04/13/2024 14:00 EDT Appointment [facility] Hematology & Oncology - [address] [address] 04/16/2024 10:00 EST Telemedicine [facility] Palliative Care Services [address] [place] [address] Chichi Woods MD [address] [place] [phone] 04/24/2024 9:00 EST Appointment [facility] Radiology CT Outpatient - [address] [phone] 04/24/2024 11:[address] [facility] Breast Imaging - [address] 729041 04/27/2024 12:00 EST Appointment [facility] Hematology & Oncology [address] [address] 05/02/2024 15:00 EST Telemedicine [facility] Hematology & Oncology [address] [address] Alisson Carreon MD 111 [facility], [address] [place] [phone] 05/04/2024 10:[address] [facility] Cardiology - [address] [place] [address] 05/04/2024 11:30 EST Appointment [facility] Hematology & Oncology [address] [address] 05/04/2024 12:00 EST Appointment [facility] Hematology & Oncology [address] [address] 06/12/2024 13:00 EST Appointment [facility] Radiology CT - [address] [phone] Scheduled Referrals Name Type Priority Associated Diagnoses Orde r Schedule [facility] Outpatient Referral Routine Lumbar radiculopathy Low back pain Ordered: 01/07/2011 documented as of this encounter Procedures Procedure Name Priority Date/Time Associated Diagnosis Comments L SPINE 4 OR MORE VIEWS Routine 01/07/2011 10:15 EDT Low back pain documented in this encounter Results * L SPINE 4 OR MORE VIEWS (01/07/2011 10:15 EDT) Anatomical Region Laterality Modality Other 01/07/2011 10:1 5 EDT 01/08/2011 13:23 EDT Narrative 01/08/2011 13:23 EDT LUMBAR SPINE 4 VIEWS January 07, 2011 Indication: Low back pain. Comparison: None available. Technique: AP and lateral flexion, neutral and extension views of the lumbar spine were obtained. Findings: Very slight leftward curvature of the lumbar spine is noted convex at L3-L4. Grade 1 anterolisthesis of L3 on L4 and L4 on L5 appears relatively stable between flexion, neutral and extension views. I suspect there are pars defects present at both the L3 and L4 levels. Vertebral body heights are preserved. There is disc space narrowing at L3-L4 and L4-L5. A calcified lesion in the left pelvis likely reflects a uterine fibroid. Procedure Note 01/08/2011 LUMBAR SPINE 4 VIEWS January 07, 2011 Indication: Low back pain. Comparison: None available. Technique: AP and lateral flexion, neutral and extension views of the lumbar spine were obtained. Findings: Very slight leftward curvature of the lumbar spine is noted convex at L3-L4. Grade 1 anterolisthesis of L3 on L4 and L4 on L5 appears relatively stable between flexion, neutral and extension views. I suspect there are pars defects present at both the L3 and L4 levels. Vertebral body heights are preserved. There is disc space narrowing at L3-L4 and L4-L5. A calcified lesion in the left pelvis likely reflects a uterine fibroid. Tylor Anthony PA-C IMG DIAGNOSTIC IMAGI NG ORDERABLES documented in this encounter Visit Diagnoses Diagnosis Low back pain- Primary Lumbago Lumbar radiculopathy Thoracic or lumbosacral neuritis or radiculitis, unspecified documented in this encounter Care Teams Marble Cutter Relationship Specialty Start Date End Date Linda Blancas MD [address] [place] [address] PCP - General 01/06/11 documented as of this encounter
--- OUTSIDE RECORDS SUMMARY | 2024-03-20 15:13 | XMS_ITS | Encounter Summary ---
Author Organization [facility] Address [address] [place] [address] Care Team Providers Care Affirmative Action Specialist Name Role Phone Linda Blancas MD Primary Care Provider [phone] Reason for Visit * Reason Comments Breast Cancer Encounter Details Date Type Department Care Team (Latest Contact Info) Description 09/08/2011 11:00 EDT Office Visit [facility] Plastic, Reconstructive & Cosmetic Surgery - [address], [address] [place] [address] Carmel Galvez MD [address] 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 You are being discharged with a Tegaderm (clear adhesive covering) over a donut of foam. ?? This covering can remain in place as long as it is dry and comfortable. ?? You may shower tomorrow with this dressing on. ?? When you do remove this dressing, cut/peel away the Tegaderm from the foam. ?? Do not discard the foam. ?? This foam must be worn inside a soft bra or shelf camisole 24 hours a day, 7 days a week for 2 weeks. If you develop signs of increasing redness, drainage, or pain, call the office. You are being discharged with a Tegaderm (clear adhesive covering) over a donut of foam. Tattoo in minimum 8 weeks 12 weeks ideal. documented in this encounter Progress Notes * Carmel Galvez MD - 09/08/2011 1112 EDT Procedure Date: 09/08/2011 Surgeon: Carmel Galvez MD Preop Dx: Acquired absence right breast Postop Dx: Same Procedure: right nipple reconstruction Anesthesia: 1% Lidocaine with Epinephrine Prep: Betadine Indications: The indication, risks, benefits and alternatives to this procedure were discussed with the patient and all questions were answered; informed consent was obtained in writing. The patient had no contraindications to surgery with local anesthesia, and the use of general anesthesia or conscious sedation were not indicated. The likelihood of complications requiring hospitalization was judged to be remote. Immediately prior to procedure a time out was called to verify the correct patient, procedure, equipment, ground crewman mission support and site/side marked as required. Narrative: Nipple location selected with patient. CV flap was designed on Breast She has had a previous delay of the flap due to scarring in the area from a previous failed nipple reconstruction. Limbs incised,re-raised, and sutured with 5-0 chromic. 1x1 cm Alloderm was prepared, rehydrated, rolled into a 1 cm cylinder, and secured within the CV flap. The donor areas were closed primarily with moncryl and nylon. Bactracin was applied and a reston foam donut and tegaderm were placed. Estimated Blood Loss: minimal Specimens: None Drains: None Carmel Galvez MD 09/08/2011 documented in this encounter Procedure Notes * ONLINE PROJECT MANAGER, SCAN 2 - 09/10/2011 1500 EDTAssociated Order(s): IMPLANT RECORD - SCANNED documented in this encounter Miscellaneous Notes * Scanned Note-Null - ONLINE PROJECT MANAGER, SCAN 2 - 09/22/2011 1307 EDT documented in this encounter Plan of Treatment Upcoming Encounters Date Type Department Care Team (Late st Contact Info) Description 04/02/2024 10:30 EDT Appointment [facility] Interventional Radiology Unit [address] [place] [phone] 04/02/2024 15:15 EDT Office Visit [facility] Surgical Oncology - [address] [phone] Adolfo Carreno MD [address] [place] [address] 2 [place] [phone] 04/05/2024 9:[address] [facility] Palliative Care Services [address] [place] [address] [phone] Chichi Woods MD [address] [place] [address], [address] [phone] 04/11/2024 15:00 EDT Telemedicine [facility] Hematology & Oncology - [address] 480651 Alisson Carreon MD [address] [place] [address] 2 [place] [phone] 04/13/2024 13:30 EDT Appointment [facility] Hematology & Oncology [address] [phone] 04/13/2024 14:00 EDT Appointment [facility] Hematology & Oncology - [address] [phone] 04/16/2024 10:[address] [facility] Palliative Care Services [address] [place], [place] [address] Chichi Woods MD 111 [facility], [address] [phone] 04/24/2024 9:00 EST Appointment [facility] Radiology CT Outpatient - [address] [phone] 04/24/2024 11:00 EST Appointment [facility] Breast Imaging - [address] [phone] 04/27/2024 12:00 EST Appointment [facility] Hematology & Oncology - [address] [phone] 05/02/2024 15:00 EST Telemedicine [facility] Hematology & Oncology - [address] [phone] Alisson Carreon MD [address] [place] [address], [facility] 2 [place] [phone] 05/04/2024 10:15 EST Ancillary Procedure [facility] Cardiology - [place] [address] 05/04/2024 11:30 EST Appointment [facility] Hematology & Oncology - [address] 133891 05/04/2024 12:00 EST Appointment [facility] Hematology & Oncology - [address] [address] 06/12/2024 13:00 EST Appointment [facility] Radiology CT - [address] [address] documented as of this encounter Procedures Procedure Name Priority Date/Time Associated Diagnosis Comments IMPLANT RECORD - SCANNED 09/10/2011 15:00 EDT documented in this encounter Results * IMPLANT RECORD - SCANNED (09/10/2011 15:00 EDT) 09/10/2011 15:0 0 EDT Narrative Transcriptions ONLINE PROJECT MANAGER, SCAN 2 - 09/10/2011 15:00 EDT Scan 2 Box Shook Patcher PROCEDURE/MINOR AJ GICAL ORDERABLES documented in this encounter Visit Diagnoses Diagnosis Acquired absence of breast and nipple- Primary documented in this encounter Care Teams Affirmative Action Specialist Relationship Specialty Start Date End Date Linda Blancas MD [facility] [address] [place] [address] PCP - General 01/06/11 documented as of this encounter
--- OUTSIDE RECORDS SUMMARY | 2024-03-20 15:13 | XMS_ITS | Encounter Summary ---
Author Organization [facility] Address [address] [place] [address] Care Team Providers Care Circus Rider Name Role Phone Linda Blancas MD Primary Care Provider [phone] Encounter Details Date Type Department Care Team (Latest Contact Info) Description 09/08/2011 10:01 EDT - 09/08/2011 23:59 EDT Hospital Encounter [facility] [address] [place] [address] Linda Blancas MD [address] [place] [address] Discharge Disposition: Home or Self Care Social [...] Sig Dispensed Refills Start Date End Date MULTIVITS W-CA,FE,OTHER MIN (WOMEN'S DAILY FORMULA ORAL) Take by mouth daily. RED YEAST RICE EXTRACT ORAL Take 1,200 mg by mouth daily. 600mg 2x a day CALCIUM CARBONATE (TUMS CALCIUM FOR LIFE BONE ORAL) Take 500 mg by mouth. With vit d 01/07/2012 DOXYLAMINE SUCCINATE (UNISOM ORAL) Take by mouth as needed. Takes half a tablet 02/02/2011 01/13/2022 gabapentin (NEURONTIN) 100 mg capsule Take 1 Cap by mouth 2 times daily with breakfast and lunch. 180 Cap 0 06/21/2011 10/28/2011 gabapentin (NEURONTIN) 300 mg capsule Take 1 Cap by mouth at bedtime. 90 Cap 3 06/21/2011 12/08/2011 IBUPROFEN ORAL Take by mouth as needed. 12/16/2011 valACYclovir (VALTREX) 500 mg tablet Take 1 Tab by mouth daily. 90 Tab 3 06/21/2011 05/29/2012 venlafaxine (EFFEXOR-XR) 150 mg XR capsule Take 1 Cap by mouth daily. 90 Cap 3 06/21/2011 07/19/2012 documented as of this encounter Discharge Disposition Disposition Code Departure Means Destination Home or Self Prison documented in this encounter Progress Notes * CARE TRANSITIONS NURSE, ERIK 2 - 09/16/2011 1059 EDT documented in this encounter Plan of Treatment Upcoming Encounters Date Type Department Care Team (Late st Contact Info) Description 04/02/2024 10:30 EDT Appointment [facility] Interventional Radiology Unit [address] [place] [phone] 04/02/2024 15:15 EDT Office Visit [facility] Surgical Oncology - [address] [phone] Adolfo Carreno MD 111 [facility], Level 2 [place] [phone] 04/05/2024 9:30 EDT Telemedicine [facility] - [facility] Palliative Care Services [address] [place], [place] [phone] Chichi Woods MD 111 [facility], [address] [phone] 04/11/2024 15:00 EDT Telemedicine [facility] Hematology & Oncology - [facility] [address] [place], [place] 6[address] Alisson Carreon MD [address] [place] [address], [facility] 2 [place] [phone] 04/13/2024 13:30 EDT Appointment [facility] Hematology & Oncology - [address] [phone] 04/13/2024 14:00 EDT Appointment [facility] Hematology & Oncology - [address] 534331 04/16/2024 10:00 EST Telemedicine [facility] - [facility] Palliative Care Services [address] [place] [address]271 Chichi Woods MD [address] [place] [phone] 04/24/2024 9:00 EST Appointment [facility] Radiology CT Outpatient - [address] [id number] 04/24/2024 11:00 EST Appointment [facility] Breast Imaging - [facility] [address] [phone] 04/27/2024 12:00 EST Appointment [facility] Hematology & Oncology - [address] [phone] 05/02/2024 15:00 EST Telemedicine [facility] Hematology & Oncology - [address] 107821 Alisson Carreon MD [address] [place] [address], [facility] 2 [place] [phone] 05/04/2024 10:15 EST Ancillary Procedure [facility] Cardiology - [address] [place], [place] [phone] 05/04/2024 11:30 EST Appointment [facility] Hematology & Oncology [address] [address] 05/04/2024 12:00 EST Appointment [facility] Hematology & Oncology [address] [address] 06/12/2024 13:00 EST Appointment [facility] Radiology CT - [address] [address] documented as of this encounter Visit Diagnoses Not on filedocumented in this encounter Care Teams Circus Rider Relationship Specialty Start Date End Date Linda Blancas MD [facility] [address] [place] [address] PCP - General 01/06/11 documented as of this encounter
--- OUTSIDE RECORDS SUMMARY | 2024-03-20 15:13 | XMS_ITS | Encounter Summary ---
Author Organization [facility] Address [address] [place] [address] Care Team Providers Care Fruit Preserver Name Role Phone Linda Blancas MD Primary Care Provider [phone] Encounter Details Date Type Department Care Team (Latest Contact Info) Description 09/27/2011 18:38 EDT - 09/27/2011 23:59 EDT Hospital Encounter [facility] - [address] [place] [address] Rudolph Garcia MD Discharge Disposition: Auto Discharge Social History Tobacco [...] IBUPROFEN ORAL Take by mouth as needed. 10/01/2011 IBUPROFEN ORAL Take by mouth as needed. [...] [facility] Interventional Radiology Unit [address] [place] [address] [phone] 04/02/2024 15:15 EDT Office Visit [facility] Surgical Oncology - [address] [phone] Adolfo Carreno MD [address] [place] [address], [facility] [address] [place] [phone] 04/05/2024 9:30 EDT Telemedicine [facility] - [facility] Palliative Care Services [address] [place] [address] [phone] Chichi Woods MD [address] [place] [address], [address] [phone] 04/11/2024 15:00 EDT Telemedicine [facility] Hematology & Oncology - [address] [phone] Alisson Carreon MD [address] [place] [address], [facility] [address] [place] [phone] 04/13/2024 13:30 EDT Appointment [facility] Hematology & Oncology [address] [phone] 04/13/2024 14:00 EDT Appointment [facility] Hematology & Oncology [address] [address] 04/16/2024 10:00 EST Telemedicine [facility] - [facility] Palliative Care Services [address] [place] [address] [phone] Chichi Woods MD [address] [place] [address], [address] [phone] 04/24/2024 9:00 EST Appointment [facility] Radiology CT Outpatient - [address] [phone] 04/24/2024 11:00 EST Appointment [facility] Breast Imaging - [facility] S [address] [phone] 04/27/2024 12:00 EST Appointment [facility] Hematology & Oncology [address] [phone] 05/02/2024 15:00 EST Telemedicine [facility] Hematology & Oncology [address] [phone] Alisson Carreon MD [address] [place] [address], Level [address] [place] [phone] 05/04/2024 10:15 EST Ancillary Procedure [facility] Cardiology [place] [place] [address] 05/04/2024 11:30 EST Appointment [facility] Hematology & Oncology [address] [phone] 05/04/2024 12:00 EST Appointment [facility] Hematology & Oncology [address] [address] 06/12/2024 13:00 [facility] Appointment [facility] Radiology CT - Main [place] [address] [place], [place] 143931 documented as of this encounter Visit Diagnoses Not on filedocumented in this encounter Care Teams Fruit Preserver Relationship Specialty Start Date End Date Lnida Blancas MD [facility] [address] [place] [address] PCP - General 01/06/11 documented as of this encounter
--- OUTSIDE RECORDS SUMMARY | 2024-03-20 15:13 | XMS_ITS | Encounter Summary ---
Author Organization [facility] Address [address] [place] [address] Care Team Providers Care Contact Worker Lithography Name Role Phone Linda Blancas MD Primary Care Provider [phone] Reason for Visit * Reason Comments Nipple Reconstruction delay for nipple r econst 09/08/2011 Encounter Details Date Type Department Care Team (Latest Contact Info) Description 08/25/2011 9:15 EDT Office Visit [facility] Plastic, Reconstructive & Cosmetic Surgery - [address], [address] [place] [address] Carmel Galvez MD [address] [facility] [address] [place], [place] 4157[address] Acquired absence of breast and nipple (Primary Dx) Discharge Disposition: Auto Discharge Social [...] this encounter Patient Instructions * Patient Instructions* Lolita Mark RN - 08/25/2011 9:33 EDT Limit activity for 48 hrs. Please avoid heavy lifting, pushing and pulling. Leave dressing on for 24hrs. You may shower tomorrow, pat this area dry. You can take tylenol or advil for any discomfort. Call our office for any excess bleeding swelling redness or pain. Keep your follow up appt. If you are unable to, please call. documented in this encounter Discharge Disposition Disposition Code Departure Means Destination Auto Discharge documented in this encounter Progress Notes * Carmel Galvez MD - 08/25/2011 1004 EDT Procedure Date: 08/25/2011 Surgeon: Carmel Galvez MD Preop Dx: Acquired absence right breast Postop Dx: Same Procedure: delay for right nipple reconstruction Anesthesia: 1% Lidocaine with Epinephrine Prep: Betadine Indications: Pt had a previous nipple reconstruction but has lost almost all projection. Plan was for repeat nipple reconstruction, with a delay of the CV flap to decrease risk of wound healing problems. The indication, risks, benefits and alternatives to [...] to verify the correct patient, procedure, equipment, medical support specialist and site/side marked as required. Narrative: Nipple location selected with patient. CV flap was designed on Breast [place]. Limbs incised, but notraised. Thin tissue, almost no subQ fat, overlying muscle.Incisions closed with interrupted 5-0 nylon. Bactracin was applied and dressed with telfa. Return in 2w for 2nd stage. Estimated Blood Loss: minimal Specimens: None Drains: None Carmel Galvez MD 08/25/2011 documented in this encounter Miscellaneous Notes * Scanned Note-Null - ICE SKATER, SCAN 2 - 09/22/2011 1452 EDT documented in this encounter Plan of Treatment Upcoming Encounters Date Type Department Care Team (Late st Contact Info) Description 04/02/2024 10:30 EDT Appointment [facility] Interventional Radiology Unit [address] [place] [address] [phone] 04/02/2024 15:15 EDT Office Visit [facility] Surgical Oncology - [address] [phone] Adolfo Carreno MD [address] [place] [address] [phone] 04/05/2024 9:30 EDT Telemedicine [facility] Palliative Care Services [address] [place] [address] [phone] Chichi Woods MD [address] [place] [address] [phone] 04/11/2024 15:00 EDT Telemedicine [facility] Hematology & Oncology - [address] [phone] Alisson Carreon MD [address] [place] [address] [phone] 04/13/2024 13:30 EDT Appointment [facility] Hematology & Oncology - [address] [phone] 04/13/2024 14:00 EDT Appointment [facility] Hematology & Oncology [address] [phone] 04/16/2024 10:00 EST Telemedicine [facility] Palliative Care Services [address] [place] [address] [phone] Chichi Woods MD [address] [place] [address] [phone] 04/24/2024 9:00 EST Appointment [facility] Radiology CT Outpatient - [address] [phone] 04/24/2024 11:00 EST Appointment [facility] Breast Imaging - [facility] S [address] [place] [address] 04/27/2024 12:00 EST Appointment [facility] Hematology & Oncology - [address] [phone] 05/02/2024 15:00 EST Telemedicine [facility] Hematology & Oncology [address] [phone] Alisson Carreon MD [address] [place] [address], Level [address] [place] [phone] 05/04/2024 10:15 EST Ancillary Procedure [facility] Cardiology - [address] [place] [address] 05/04/2024 11:30 EST Appointment [facility] Hematology & Oncology [address] [phone] 05/04/2024 12:00 EST Appointment [facility] Hematology & Oncology [address] [id number] 06/12/2024 13:00 EST Appointment [facility] Radiology CT - [address] [phone] documented as of this encounter Visit Diagnoses Diagnosis Acquired absence of breast and nipple- Primary documented in this encounter Discontinued Medications Medication Sig Discontinue Reason Start Date End Da te ibandronate (BONIVA) 150 mg tablet Take 1 Tab by mouth every 30 days. Therapy completed 07/09/2010 08/25/2011 FAMOTIDINE/CALCIUM CARB/MAG (PEPCID COMPLETE ORAL) Take by mouth as needed. Therapy completed 08/25/2011 Testosterone (ANDROGEL) 1.25 g/Actuation GlPm Place onto the skin three times a week. 1 pump three times per week Therapy completed 09/22/2009 08/25/2011 documented as of this encounter Care Teams Contact Worker Lithography Relationship Specialty Start Date End Date Linda Blancas MD [address] [place] [address] PCP - General 01/06/11 documented as of this encounter
--- OUTSIDE RECORDS SUMMARY | 2024-03-20 15:13 | XMS_ITS | Encounter Summary ---
Author Organization [facility] Address [address] [place] [address] Care Team Providers Care Humanities Coordinator Name Role Phone Linda Blancas MD Primary Care Provider [phone] Reason for Visit * Reason Onset Date Comments Appointment Related 11/17/2011 Encounter Details Date Type Department Care Team (Late st Contact Info) Description 11/17/2011 Telephone [facility] - [address] [address] Tylor Hanley MD [address] [facility] [place] [phone] Appointment Related Social History Tobacco [...] encounter Miscellaneous Notes * Telephone Encounter - Alex Rome - 11/17/2011 1056 EDT Patient notified of time and date for CT scan. documented in this encounter Plan of Treatment Upcoming Encounters Date Type Department Care Team (Late st Contact Info) Description 04/02/2024 10:30 EDT Appointment [facility] Interventional Radiology Unit [address] [place] [address] [phone] 04/02/2024 15:15 EDT Office Visit [facility] Surgical Oncology - [address] 158551 Adolfo Carreno MD [address] [place] [address] [phone] 04/05/2024 9:30 EDT Telemedicine [facility] Palliative Care Services [address] [place] [address] 152201 Chichi Woods MD [address] [place] [address] [phone] 04/11/2024 15:00 EDT Telemedicine [facility] Hematology & Oncology - [address] 487001 Alisson Carreon MD [address] [place] [address] [phone] 04/13/2024 13:30 EDT Appointment [facility] Hematology & Oncology [address] [phone] 04/13/2024 14:00 EDT Appointment [facility] Hematology & Oncology [address] [phone] 04/16/2024 10:00 EST Telemedicine [facility] Palliative Care Services [address] [place] [address] 194541 Chichi Woods MD [address] [place] [address] [phone] 04/24/2024 9:00 EST Appointment [facility] Radiology CT Outpatient - [address] [address] 04/24/2024 11:00 EST Appointment [facility] Breast Imaging - [facility] S [place] [address] [place] [address] 04/27/2024 12:00 EST Appointment [facility] Hematology & Oncology - [address] [address] 05/02/2024 15:00 EST Telemedicine [facility] Hematology & Oncology [address] [phone] Alisson Carreon MD [address] [place] [address], Level 2 [place] [phone] 05/04/2024 10:15 EST Ancillary Procedure [facility] Cardiology - [address] [place] [address] 05/04/2024 11:30 EST Appointment [facility] Hematology & Oncology - [address] [address] 05/04/2024 12:00 EST Appointment [facility] Hematology & Oncology - [address] [address] 06/12/2024 13:00 EST Appointment [facility] Radiology CT - [address] 167701 documented as of this encounter Visit Diagnoses Not on filedocumented in this encounter Care Teams Humanities Coordinator Relationship Specialty Start Date End Date Linda Blancas MD [address] [place] [address] 30 [place], [place] 920272 PCP - General 01/06/11 documented as of this encounter
--- OUTSIDE RECORDS SUMMARY | 2024-03-20 15:13 | XMS_ITS | Encounter Summary ---
Author Organization [facility] Address [address] [place] [address] Care Team Providers Care Despatch Clerk Name Role Phone None, Provider Primary Care Provider Unavailabl e Encounter Details Date Type Department Care Team (Late st Contact Info) Description 11/13/2010 Results Only [facility] OBGYN Services - [address] [address] Quita Babb PA-C [address] [place] [address] [phone] Social History Tobacco Use Types Packs/Day Years [...] [facility] Interventional Radiology Unit [address] [place] [address] [phone] 04/02/2024 15:15 EDT Office Visit [facility] Surgical Oncology - [address] [address] Adolfo Carreno MD [address] [place] [address], [place] [phone] 04/05/2024 9:30 EDT Telemedicine [facility] Palliative Care Services [address] [place] [address] [phone] Chichi Woods MD [address] [place] [address] [phone] 04/11/2024 15:00 EDT Telemedicine [facility] Hematology & Oncology - [address] 368141 Alisson Carreon MD [address] [place] [address] 2 [place] [phone] 04/13/2024 13:30 EDT Appointment [facility] Hematology & Oncology - [address] [phone] 04/13/2024 14:00 EDT Appointment [facility] Hematology & Oncology - [address] [phone] 04/16/2024 10:00 EST Telemedicine [facility] Palliative Care Services [address] [place] [address] Chichi Woods MD [address] [place] [address] [phone] 04/24/2024 9:00 EST Appointment [facility] Radiology CT Outpatient - [address] [phone] 04/24/2024 11:00 EST Appointment [facility] Breast Imaging - [address] 286641 04/27/2024 12:00 EST Appointment [facility] Hematology & Oncology [address] [address] 05/02/2024 15:00 EST Telemedicine [facility] Hematology & Oncology [address] [address] Alisson Carreon MD [address] [place] [address], Level [address] [place] [phone] 05/04/2024 10:15 EST Ancillary Procedure [facility] Cardiology - [address] [place] [address] 05/04/2024 11:30 EST Appointment [facility] Hematology & Oncology [address] [address] 05/04/2024 12:00 EST Appointment [facility] Hematology & Oncology [address] [address] 06/12/2024 13:00 EST Appointment [facility] Radiology CT - [address] [phone] documented as of this encounter Procedures Procedure Name Priority Date/Time Associated Diagnosis Comments PAP TEST- RESULT ONLY Routine 11/13/2010 0:00 EDT documented in this encounter Results * PAP TEST- RESULT ONLY (11/13/2010 0:00 EDT) Pathology Report: CYTOPATHOLOGY REPORT ? Reports generated via electronic interface contain original data; ? however they are lacking the format of the original report. ? Caution should be taken when reading/interpreti ng unformatted reports. ? Name: ? PARDEEP SMITH ? Accession #: ? [id number] ? : ? 1960 (Age: 50) ??F ?Collect Date: ? 11/13/2010 ? Location: ? OBGYN ? Receive Date: ? 11/16/2010 ? Provider: ?QUITA B WILMER PA ? Copy to: ? Specimen/Source: ?Pap Test, Cervix/Endocervix, ThinPrep Imaging System ? with manual evaluation ? Last Menstrual Period: ? Previous Gynecologic Pathology: ? ASC-US: follow up ? HPV: HR HPV follow up ? SPECIMEN ADEQUACY ? Satisfactory for Evaluation ? - transformation zone component present ? GENERAL CATEGORIZATION ? Negative for Intraepithelial Lesion or Malignancy ? Document reviewed and electronically signed by: ? Juany F. Colasacco, SCT(ASCP) ? Report Date: ??11/23/2010 16:13 ? End of Report ? RENÉE CALDERA 11/13/2010 11/16/2010 Quita Babb PA-C PATHOLOGY [facility] [address] [place] [address] documented in this encounter Visit Diagnoses Not on filedocumented in this encounter Care Teams Despatch Clerk Relationship Specialty Start Date End Date None, Provider PCP - General 08/21/09 01/05/11 documented as of this encounter
--- OUTSIDE RECORDS SUMMARY | 2024-03-20 15:13 | XMS_ITS | Encounter Summary ---
Author Organization [facility] Address [address] [place] [address] Care Team Providers Care Senior Tech Manufacturing Engineering Name Role Phone Linda Blancas MD Primary Care Provider [phone] Reason for Visit * Reason Comments Back Pain Encounter Details Date Type Department Care Team (Late st Contact Info) Description 10/25/2011 10:30 EDT Office Visit [facility] Spine Program - [place] [address] [place] [address] [place] [address] Felipe Ny MD [address] [place] [address] [place] [address] Acquired spondylolisthesis (Primary Dx) Social [...] - - Weight 67.1 kg (148 lb) 10/25/2011 1045 EDT Height 157.5 cm (5' 2) 10/25/2011 1045 EDT Body Mass Index 27.07 10/25/2011 1045 EDT documented in this encounter Progress Notes * Felipe Ny MD - 10/25/2011 1401 EDT This office note has been dictated. FELIPE [place] MD documented in this encounter Consult Notes * Felipe Ny MD - 10/26/2011 1416 EDT [facility] [place] [facility] [address] [place] [address] CONSULTATION - 10/25/2011 PROBLEM: 1. Low back pain and right leg pain. a. L3 and L4 isthmic spondylolisthesis. 2. Breast cancer November 2003. a. Mastectomy. 3. Status post bilateral carpal tunnel release. SUBJECTIVE: Patient is a 51-year-old woman. Notes that she has had episodes of back pain back 10 to12 years ago and was diagnosed with isthmic spondylolistheses, managed it with an exercise program.Generally done well with no limitations until August of 2010 when she went golfing, following which she had severe increase in her back pain and leg symptoms, which have persisted. She describes now lumbar discomfort in the midline with radiation into the right anterior and medial thigh to the knee.She notes her symptoms worse with walking and dancing, improved flexion, sitting and leaning forward. She has undergone epidurals x2, both of which lasted 2 weeks with good relief; an intraarticular h ip injection, which made her hip hurt more; physical therapy; home exercise program, chiropractic treatment, medications with anti-inflammatories, neuroleptics, none of which have given any long-lasting relief. She denies fevers, chills, night sweats, weight loss or loss of bowel or bladder control. ALLERGIES: SULFA, causing hives. MEDICATIONS: Reviewed in [facility]. SOCIAL HISTORY: Patient is recently in the last year. She enjoys ballroom dancing. 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 She is a nonsmoker. OBJECTIVE: Alert, oriented, cooperative and appropriate woman with no Audra signs. Ambulates without antalgia. Heel and toe walk without difficulty, 5/5 all lower extremity muscle groups. Sensationintact to light touch, 1+ knee and ankle symmetrically, negative straight leg raising, spine is nontender. No hairy patches or skin lesions. Flexion with fingertips to her ankles, extension with discomfort. Hip range of motion shows flexion, adduction, internal rotation, showing no evidence of discomfort. DIAGNOSTIC DATA: X-rays, AP, lateral, flexion/extension lateral lumbar spine films show an L3 and L4 isthmic spondylolisthesis with foraminal stenosis. MRI confirms the foraminal stenosis, no centralstenosis. ASSESSMENT: Woman with back and right leg pain with symptoms that are concordant with her radiographs showing a 2-level isthmic spondylolisthesis and stenosis. I discussed the natural history, which is a waxing and waning course and options again including expectant management, ongoing exercise program to prevent deconditioning or consideration of surgery. We discussed a posterior decompression and fusion versus anterior and posterior decompression and fusion. I discussed with her that an L3-[id number] decompression and fusion with local bone allograft and pedicle screws I felt would have an 85% to 90% chance of excellent relief of symptoms, 10 to 15% no change in symptoms, 1 or 2% worsened symptoms. Risks and complications including infection, DVT, pulmonary emboli, , neurologic loss, pseudarthrosis, hardware failure or migration, increased back pain, leg pain, dural tear, blindness were all discussed. She understands these. We discussed the hospital course, rehabilitation. She asked questions, she had a friend with her. She decides she is going to go home and talk with her , think about timing, and will call us back. I discussed that preoperatively we would do a preoperative fusion class she would participate in, we would do multivitamin and Ensure prior to the surgery for optimizing nutrition, and then a regular program of pool therapy 3 to 4 days a week priorto the surgery as well to optimize her functioning and improve recovery, and at this point, she is going to pursue the following plan. PLAN: 1. Multivitamin and Ensure daily. 2. Pool therapy 3 to 4 days a week. 3. Phone followup. If she wished to pursue surgery, she can be scheduled for an L3-5 decompression and fusion with local bone allograft, pedicle screws, all from posteriorly and return to the office for consenting. Electronically Signed by Felipe Ny MD 10/28/2011 13:20 Felipe Ny MD - Felipe Ny MD - [facility] Job ID: SM Doc ID: [id number] Ext Doc ID: [id number] cc: MD Felipe Aguilera PA documented in this encounter Plan of Treatment Upcoming Encounters Date Type Department Care Team (Late st Contact Info) Description 04/02/2024 10:30 EDT Appointment [facility] Interventional Radiology Unit [address] [place] [address] [phone] 04/02/2024 15:15 EDT Office Visit [facility] Surgical Oncology - [address] [phone] Adolfo Carreno MD [address] [place] [address] 2 [place] [phone] 04/05/2024 9:30 EDT Telemedicine [facility] - [facility] Palliative Care Services [address] [place] [address] [phone] Chichi Woods MD [address] [place] [address], [address] [phone] 04/11/2024 15:00 EDT Telemedicine [facility] Hematology & Oncology - [address] [phone] Alisson Carreon MD [address] [place] [address] 2 [place] [phone] 04/13/2024 13:30 EDT Appointment [facility] Hematology & Oncology - [address] [phone] 04/13/2024 14:00 EDT Appointment [facility] Hematology & Oncology - [address] [phone] 04/16/2024 10:00 EST Telemedicine [facility] - [facility] Palliative Care Services [address] [place] [address] Chichi Woods MD [address] [facility], [address] [phone] 04/24/2024 9:00 EST Appointment [facility] Radiology CT Outpatient - [address] [phone] 04/24/2024 11:00 EST Appointment [facility] Breast Imaging - [address] [id number] 04/27/2024 12:00 EST Appointment [facility] Hematology & Oncology - [address] [phone] 05/02/2024 15:00 EST Telemedicine [facility] Hematology & Oncology - [address] [phone] Alisson Carreon MD [address] [place] [address], [facility], Level [address] [place] [phone] 05/04/2024 10:15 EST Ancillary Procedure [facility] Cardiology - [place] [address] 05/04/2024 11:30 EST Appointment [facility] Hematology & Oncology - [address] [phone] 05/04/2024 12:00 EST Appointment [facility] Hematology & Oncology - [address] [id number] 06/12/2024 13:00 EST Appointment [facility] Radiology CT - [address] [phone] documented as of this encounter Visit Diagnoses Diagnosis Acquired spondylolisthesis- Primary documented in this encounter Care Teams Senior Tech Manufacturing Engineering Relationship Specialty Start Date End Date Linda Blancas MD [address] [place] [address] 30 [place] [address] PCP - General 01/06/11 documented as of this encounter
--- OUTSIDE RECORDS SUMMARY | 2024-03-20 15:13 | XMS_ITS | Encounter Summary ---
Author Organization [facility] Address [address] [place] [address] Care Team Providers Care Alteration Worker Name Role Phone Linda Blancas MD Primary Care Provider Reason for Visit * Reason Onset Date Comments Appointment Related 09/09/2011 Encounter Details Date Type Department Care Team (Late Contact Info) Description 09/09/2011 Telephone [facility] Spine Program - [address] [place] [address] Tylor Anthony PA-C [address] [facility] [place] [address] Appointment Related Social History Tobacco [...] encounter Miscellaneous Notes * Telephone Encounter - Ochoa Reis - 09/09/2011 1521 EDT Gave Sendy the d/t of her injection and MRI appt. She will wait to hear from us regarding the appropriate f/u post MRI. documented in this encounter Plan of Treatment Upcoming Encounters Date Type Department Care Team (Late st Contact Info) Description 04/02/2024 10:30 EDT Appointment [facility] Interventional Radiology Unit [address] [place] [address] [phone] 04/02/2024 15:15 EDT Office Visit [facility] Surgical Oncology - [address] 759101 Adolfo Carreno MD [address] [place] [phone] 04/05/2024 9:30 EDT Telemedicine [facility] Palliative Care Services [address] [place] [address] [phone] Chichi Woods MD [address] [place] [phone] 04/11/2024 15:00 EDT Telemedicine [facility] Hematology & Oncology - [address] [phone] Alisson Carroen MD [address] [place] [address] [phone] 04/13/2024 13:30 EDT Appointment [facility] Hematology & Oncology [address] [phone] 04/13/2024 14:00 EDT Appointment [facility] Hematology & Oncology [address] [phone] 04/16/2024 10:00 EST Telemedicine [facility] Palliative Care Services [address] [place] [address] [phone] Chichi Woods MD [address] [place] [address] [phone] 04/24/2024 9:00 EST Appointment [facility] Radiology CT Outpatient - [address] [phone] 04/24/2024 11:00 EST Appointment [facility] Breast Imaging - [facility] [place] [address] [place] [address] 04/27/2024 12:00 EST Appointment [facility] Hematology & Oncology - [address] [phone] 05/02/2024 15:00 EST Telemedicine [facility] Hematology & Oncology [address] [phone] Alisson Carreon MD [address] [place] [place] [address], [address] [place] [phone] 05/04/2024 10:15 EST Ancillary Procedure [facility] Cardiology - [place] [address] [place] [address] 05/04/2024 11:30 EST Appointment [facility] Hematology & Oncology [address] [address] 05/04/2024 12:00 EST Appointment [facility] Hematology & Oncology [address] [address] 06/12/2024 13:00 EST Appointment [facility] Radiology CT - [address] [address] documented as of this encounter Visit Diagnoses Not on filedocumented in this encounter Care Teams Alteration Worker Relationship Specialty Start Date End Date Linda Blancas MD [facility] [address] [place] [address] PCP - General 01/06/11 documented as of this encounter
--- OUTSIDE RECORDS SUMMARY | 2024-03-20 15:13 | XMS_ITS | Encounter Summary ---
Author Organization [facility] Address [address] [place] [address] Care Team Providers Care Consulting Hr Professional Name Role Phone Linda Blancas MD Primary Care Provider Reason for Visit * Reason Onset Date Comments Other 11/22/2011 Encounter Details Date Type Department Care Team (Late st Contact Info) Description 11/22/2011 Telephone [facility] Plastic, Reconstructive & Cosmetic Surgery - [address], [address] [place], [place] [phone] Pavan Batres MD Other Social History Tobacco Use Types Packs/Day [...] Miscellaneous Notes * Telephone Encounter - Linda Donaldson RN - 11/22/2011 1600 EDT Spoke to patient, advised per Dr. Batres that he does not generally do wound closures for other surgeons and that any surgery will leave a scar. Advised her that if she isn't happy with the scars after they have matured, she can see Dr. Batres to discuss revisions. Patient verbalized understanding of information discussed. * Telephone Encounter - Santa Grossman - 11/22/2011 1442 EDT Patient wants to know from [facility]: On December 12, patient having spine surgery w/Dr. Tylor Hanley. Will involve incisions in both stomach and back. Dr. Hanley said scars (one each 5 long, front and back) would not be fixable. She wants to know if it's possible to have a plastic surgeon ([facility]) at her spine surgery. Please call patient with info. Patient will call insurance company if [facility] says okay. Feelfree to leave a detailed voice message if she's not home. documented in this encounter Plan of Treatment Upcoming Encounters Date Type Department Care Team (Late st Contact Info) Description 04/02/2024 10:30 EDT Appointment [facility] Interventional Radiology Unit [address] [place] [address] [phone] 04/02/2024 15:15 EDT Office Visit [facility] Surgical Oncology - [address] [phone] Adolfo Carreno MD [address] [place] [address] [phone] 04/05/2024 9:30 EDT Telemedicine [facility] - [facility] Palliative Care Services [address] [place] [address] [phone] Chichi Woods MD [address] [place] [address] [phone] 04/11/2024 15:00 EDT Telemedicine [facility] Hematology & Oncology - [address] [phone] Alisson Carreon MD [address] [place] [address] 2 [place] [phone] 04/13/2024 13:30 EDT Appointment [facility] Hematology & Oncology - [address] [address] 04/13/2024 14:00 EDT Appointment [facility] Hematology & Oncology - [address] [phone] 04/16/2024 10:00 EST Telemedicine [facility] - [facility] Palliative Care Services [address] [place] [address] [phone] Chichi Woods MD [address] [place] [phone] 04/24/2024 9:00 EST Appointment [facility] Radiology CT Outpatient - [address] [address] 04/24/2024 11:00 EST Appointment [facility] Breast Imaging - [facility] [address] [place] [address] [place], [place] 375351 04/27/2024 12:00 EST Appointment [facility] Hematology & Oncology [address] [phone] 05/02/2024 15:00 EST Telemedicine [facility] Hematology & Oncology - [address] [address] Alisson Carreon MD [address] [place], [place] [address]ili, [address] [place] [phone] 05/04/2024 10:15 EST Ancillary Procedure [facility] Cardiology [place] [address] 05/04/2024 11:30 EST Appointment [facility] Hematology & Oncology - [address] [phone] 05/04/2024 12:00 EST Appointment [facility] Hematology & Oncology - [address] [phone] 06/12/2024 13:00 EST [facility]ointment [facility] Radiology CT - [address] [phone] documented as of this encounter Visit Diagnoses Not on filedocumented in this encounter Care Teams Consulting Hr Professional Relationship Specialty Start Date End Date Linda Blancas MD [facility] [address] [place] [address] PCP - General 01/06/11 documented as of this encounter
--- OUTSIDE RECORDS SUMMARY | 2024-03-20 15:13 | XMS_ITS | Encounter Summary ---
Author Organization [facility] Address [address] [place] [address] Care Team Providers Care Benzene Operator Name Role Phone Linda Blancas MD Primary Care Provider [phone] Reason for Visit * Reason Onset Date Comments Back Pain 11/16/2011 Encounter Details Date Type Department Care Team (Late st Contact Info) Description 11/16/2011 Orders Only [facility] Spine Program - [address] [address] Tylor Hanley MD [address] [place] [address] [place] [address] Lumbago (Primary Dx) Social History Tobacco [...] Appointment [facility] Interventional Radiology Unit [address] [place] [address] 04/02/2024 15:15 EDT Office Visit [facility] Surgical Oncology - Main [place] [address] [place], [place] [phone] Adolfo Carreno MD [address] [place] [address], [facility] [address] [place] [phone] 04/05/2024 9:30 EDT Telemedicine [facility] Palliative Care Services [address] [place] [address] 921941 Chichi Woods MD [address] [place] [address] [phone] 04/11/2024 15:00 EDT Telemedicine [facility] Hematology & Oncology - [address] [phone] Alisson Carreon MD [address] [place] [address], [facility] [address] [place] [phone] 04/13/2024 13:30 EDT Appointment [facility] Hematology & Oncology - [address] [phone] 04/13/2024 14:00 EDT Appointment [facility] Hematology & Oncology - [address] [phone] 04/16/2024 10:00 EST Telemedicine [facility] Palliative Care Services [address] [place] [address] [phone] Chichi Woods MD [address] [place] [address] [phone] 04/24/2024 9:00 EST Appointment [facility] Radiology CT Outpatient - [address] [id number] 04/24/2024 11:00 EST Appointment [facility] Breast Imaging - [address] [id number] 04/27/2024 12:00 EST Appointment [facility] Hematology & Oncology [address] [address] 05/02/2024 15:00 EST Telemedicine [facility] Hematology & Oncology [address] [phone] Alisson Carreon MD [address] [place] [address], Level [address] [place] [phone] 05/04/2024 10:15 EST Ancillary Procedure [facility] Cardiology [place] [address] [place] [address] 05/04/2024 11:30 EST Appointment [facility] Hematology & Oncology [address] [address] 05/04/2024 12:00 EST Appointment [facility] Hematology & Oncology [address] [address] 06/12/2024 13:00 EST Appointment [facility] Radiology CT - [address] [id number] documented as of this encounter Procedures Procedure Name Priority Date/Time Associated Diagnosis Comments CT LUMBAR SPINE WO CONTRAST 11/25/2011 20:10 EDT documented in this encounter Results * CT LUMBAR SPINE WO CONTRAST (11/25/2011 20:10 EDT) Anatomical Region Laterality Modality Other 11/25/2011 20:1 0 EDT 11/26/2011 14:56 EDT Narrative 11/26/2011 14:[address] LUMBAR SPINE WO/CONTRAST ??Nov 25, 2011 08:10:00 PM Signs and Symptoms/Comments: ??724.7-WEPHJOB-CFE-9-CM LBP No comparison CT. Comparison MRI September 27, 2011. Axial scans from T12 to the lower sacrum. No gross abnormality of the right general peritoneum or kidneys. Calcified lesion in the pelvis on the right is likely a calcified fibroid as an incidental finding. Scans at T12-L1 reveal no disc herniation, central or foraminal stenosis. At L1-L2 no disc herniation, central or foraminal stenosis. At L2-L3 no disc herniation, central or foraminal stenosis. At L3-L4 uncovering of the disc related to a mild grade 1 spondylolisthesis which is noted on the sagittal reconstructions. I do not see a definite focal disc herniation. There is right severe L3 foraminal stenosis also noted on the MRI which could be secondary to asymmetric disc bulge and/or broad-based herniation into the foramen. Considerably less severe left L3 nerve root foraminal stenosis. At L4-L5 there is uncovering the disc with bilateral L4 nerve root foraminal stenosis. These are ??as much as moderate. This is also seen on the MRI as well. No central stenosis No focal disc herniation. At L5-S1 no disc herniation or gross central stenosis. Mild left L5 foraminal narrowing. Bone windows reveal no gross facet disease at T12-L1, L1-L2 or L2-L3. Pars defects are noted at L3 bilaterally. The L3-L4 facets are only mildly degenerative. Bilateral L4 pars defects are noted as well. No more than moderate degenerative facet changes L4-5 slightly greater left. Bilateral L5 pars defects with mild to moderate bilateral L5-S1 degenerative facet change. Coronal and sagittal reconstructions reveal mild levoscoliosis. No lateral subluxation. Considerable disc narrowing at L4-L5 with adjacent sclerosis. There is disc narrowing but less severe at L3-L4. Mild anterolisthesis of L3 on L4 and greater anterolisthesis at L4-L5. Anterolisthesis is not demonstrated at L5-S1 despite the bilateral L5 pars defects. No other malalignment. Gross disc narrowing is not seen at L5-S1 although there is very mild bulge. Impression: Considerable disc narrowing and sclerosis at the L4-L5 level with a grade 1 to 2 anterolisthesis. There is uncovering of the disc which is partly calcified. As much as moderate bilateral L4 foraminal stenosis. No severe central stenosis. Moderate amount of L3-L4 disc narrowing and slightly less anterolisthesis than at L4-L5. There is however considerable soft tissue encroachment upon the right L3 nerve root foramen which is also seen on the MRI. There are bilateral pars defects at L3, L4 and L5. Despite these at L5, there is no anterolisthesis at L5-S1. Mild left L5 foraminal narrowing. Procedure Note 11/26/2011 CT LUMBAR SPINE WO/CONTRAST Nov 25, 2011 08:10:00 PM Signs and Symptoms/Comments: 724.4-PBFFTGC-HRO-9-CM LBP No comparison CT. Comparison MRI September 27, 2011. Axial scans from T12 to the lower sacrum. No gross abnormality of the right general peritoneum or kidneys. Calcified lesion in the pelvis on the right is likely a calcified fibroid as an incidental finding. Scans at T12-L1 reveal no disc herniation, central or foraminal stenosis. At L1-L2 no disc herniation, central or foraminal stenosis. At L2-L3 no disc herniation, central or foraminal stenosis. At L3-L4 uncovering of the disc related to a mild grade 1 spondylolisthesis which is noted on the sagittal reconstructions. I do not see a definite focal disc herniation. There is right severe L3 foraminal stenosis also noted on the MRI which could be secondary to asymmetric disc bulge and/or broad-based herniation into the foramen. Considerably less severe left L3 nerve root foraminal stenosis. At L4-L5 there is uncovering the disc with bilateral L4 nerve root foraminal stenosis. These are as much as moderate. This is also seen on the MRI as well. No central stenosis No focal disc herniation. At L5-S1 no disc herniation or gross central stenosis. Mild left L5 foraminal narrowing. Bone windows reveal no gross facet disease at T12-L1, L1-L2 or L2-L3. Pars defects are noted at L3 bilaterally. The L3-L4 facets are only mildly degenerative. Bilateral L4 pars defects are noted as well. No more than moderate degenerative facet changes L4-5 slightly greater left. Bilateral L5 pars defects with mild to moderate bilateral L5-S1 degenerative facet change. Coronal and sagittal reconstructions reveal mild levoscoliosis. No lateral subluxation. Considerable disc narrowing at L4-L5 with adjacent sclerosis. There is disc narrowing but less severe at L3-L4. Mild anterolisthesis of L3 on L4 and greater anterolisthesis at L4-L5. Anterolisthesis is not demonstrated at L5-S1 despite the bilateral L5 pars defects. No other malalignment. Gross disc narrowing is not seen at L5-S1 although there is very mild bulge. Impression: Considerable disc narrowing and sclerosis at the L4-L5 level with a grade 1 to 2 anterolisthesis. There is uncovering of the disc which is partly calcified. As much as moderate bilateral L4 foraminal stenosis. No severe central stenosis. Moderate amount of L3-L4 disc narrowing and slightly less anterolisthesis than at L4-L5. There is however considerable soft tissue encroachment upon the right L3 nerve root foramen which is also seen on the MRI. There are bilateral pars defects at L3, L4 and L5. Despite these at L5, there is no anterolisthesis at L5-S1. Mild left L5 foraminal narrowing. Tylor Hanley MD IMG CT ORDERABLE S documented in this encounter Visit Diagnoses Diagnosis Lumbago- Primary documented in this encounter Care Teams Benzene Operator Relationship Specialty Start Date End Date Linda Blancas MD [address] [place] [address] PCP - General 01/06/11 documented as of this encounter
--- OUTSIDE RECORDS SUMMARY | 2024-03-20 15:13 | XMS_ITS | Encounter Summary ---
Author Organization [facility] Address [address] [place] [address] Care Team Providers Care Product Development Director Name Role Phone Linda Blancas MD Primary Care Provider [phone] Reason for Visit * Reason Comments Back Pain Encounter Details Date Type Department Care Team (Late st Contact Info) Description 11/16/2011 10:00 EDT Office Visit [facility] Spine Program - [address] [place] [address] Felipe Ny MD [address] [place] [address] [place] [address] Acquired spondylolisthesis (Primary Dx) Social [...] Progress Notes * Felipe Ny MD - 11/18/2011 0900 EDT Spine [place] [facility] (SpINE) [facility] [address] [place] [address] [phone] PROGRESS/FOLLOWUP NOTE - 11/16/2011 PROBLEM: 1. Low back 50%, right leg pain 50% pain. a. L3, L4, L5 isthmic spondylolisthesis. b. Foraminal stenosis. 2. Breast cancer November of 2003. a. Status post mastectomy and reconstruction. 3. Status post bilateral carpal tunnel release. SUBJECTIVE: The patient is a 51-year-old woman who returns today for consenting for surgery. She continues to complain of back discomfort with episodes of back pain going back 10 to 12 years, managedwith an exercise program until 08/2010, following which she has had progressively increasing back and leg pain, which has persisted and worsened. She describes 50% midline low lumbar discomfort with radiation into the right anterior and medial thigh down to the knee. Symptoms are worse with walking and dancing, improved with flexion and leaning forward. She has undergone epidurals x2 with two weeks of good relief; intraarticular hip injection, which made her hip hurt more; physical therapy, homeexercise program; chiropractic treatment; medications with anti-inflammatories; neuroleptics; nonnarcotic pain medications with no long lasting relief. She has been doing her nutritional supplementation. Doing her home exercise program and after thinking over her options and discussing it with family, has elected to pursue surgical intervention ALLERGIES: SULFA, causing hives. MEDICATIONS: Reviewed in [facility]. SOCIAL HISTORY: Patient is recently . Enjoys ballroom dancing. 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 She is a nonsmoker. She has a large system of friends and support network to help her postoperatively. OBJECTIVE: No Audra signs. Ambulates without antalgia. Negative static and dynamic Romberg, 5/5 all upper and lower extremity muscle groups, 1+ knee and ankle symmetrically, negative straight leg raising. DIAGNOSTIC DATA: X-rays, AP, lateral, flexion/extension lateral show an L3 isthmic spondylolisthesis, L4 isthmic spondylolisthesis, both with foraminal stenosis on flex-ex views. She also demonstrates what appears to be an L5 isthmic defect without translation. MRI confirms foraminal stenosis at multiple levels but no central stenosis. ASSESSMENT: Woman with back and right leg pain with a multilevel isthmic spondylolisthesis, concordant with her radiographs. I discussed the nature of these findings with her again and in reviewing her films, it identified that she had a 3-level pars defects. We discussed the nature of this as wellas surgical intervention to incorporate all areas of deformity. We discussed posterior decompression alone versus anterior and posterior decompression and fusion and that surgery would have an 85% chance of good relief of symptoms, 15% no change, 1 or 2% worsened symptoms. Risks and complications including infection, DVT, pulmonary emboli, , neurologic loss, pseudarthrosis, hardware failure or migration, increased back pain, leg pain, dural tear, blindness, progressive degeneration, hernias and vascular injury were all discussed. She understands these. We discussed hospital course, rehabilitation and she wished to pursue surgery. PLAN: 1. Continue with multivitamin and Ensure daily. 2. Continue with exercise program. 3. L3-S1 anterior and posterior decompression and fusion with local bone allograft, pedicle screws. 4. Preoperative fusion class. 5. Preoperative CT of the lumbar spine. Electronically Signed by Felipe Ny MD 11/19/2011 15:57 Felipe Ny MD - Felipe Ny MD - [facility] Job ID: Doc ID: [id number] [facility] Doc ID: [id number] cc: * Felipe Ny MD - 11/16/2011 1239 EDT This office note has been dictated. FELIPE [place] MD * Anusha Norwood RN - 11/16/2011 1221 EDT Patient Education Topic: ASF/PSF L3-S1 decomp/fusion/local/allog/ped screws. Method: handout, verbal Taught to: Patient Barriers: none Outcomes: Independent Signature:Anusha Norwood RN documented in this encounter Plan of Treatment Upcoming Encounters Date Type Department Care Team (Late st Contact Info) Description 04/02/2024 10:30 EDT Appointment [facility] Interventional Radiology Unit [address] [place] [address] 04/02/2024 15:15 EDT Office Visit [facility] Surgical Oncology - [address] [phone] Adolfo Carreno MD [address] [place] [address] [phone] 04/05/2024 9:30 EDT Telemedicine [facility] Palliative Care Services [address] [place] [address] [phone] Chichi Woods MD [address] [place] [address] [phone] 04/11/2024 15:00 EDT Telemedicine [facility] Hematology & Oncology - [address] [phone] Alisson Carreon MD [address] [place] [address] [phone] 04/13/2024 13:30 EDT Appointment [facility] Hematology & Oncology [address] [phone] 04/13/2024 14:00 EDT Appointment [facility] Hematology & Oncology - [address] [address] 04/16/2024 10:00 EST Telemedicine [facility] Palliative Care Services [address] [place] [address] 677051 Chichi Woods MD [address] [place] [address] [phone] 04/24/2024 9:00 EST Appointment [facility] Radiology CT Outpatient - [address] [address] 04/24/2024 11:00 EST Appointment [facility] Breast Imaging - [facility] [address] [place], [place] [address]241 04/27/2024 12:00 EST Appointment [facility] Hematology & Oncology [address] [phone] 05/02/2024 15:00 EST Telemedicine [facility] Hematology & Oncology [address] 195261 Alisson Carreon MD [address] [place] [address], Level 2 [place] [phone] 05/04/2024 10:15 EST Ancillary Procedure [facility] Cardiology - [place] [address] 05/04/2024 11:30 EST Appointment [facility] Hematology & Oncology [address] 477441 05/04/2024 12:00 EST Appointment [facility] Hematology & Oncology [address] [phone] 06/12/2024 13:00 EST Appointment [facility] Radiology CT - [address] [phone] documented as of this encounter Procedures Procedure Name Priority Date/Time Associated Diagnosis Comments SURGICAL MRSA/MSSA Routine 11/16/2011 10:39 EDT Acquired spondylolisthesis documented in this encounter Results * (ABNORMAL) SURGICAL MRSA/MSSA (11/16/2011 10:39 EDT) Specimen Description Nasal [facility] Result Methicillin susceptible Staphylococcus aureus (MSSA) DNA detected by PCR.(A) [facility] 11/16/2011 10:3 9 EDT 11/16/2011 15:45 EDT Felipe Ny MD MICROBIOLOGY - G ENERAL ORDERABLES [facility] [address] [place] [address] documented in this encounter Visit Diagnoses Diagnosis Acquired spondylolisthesis- Primary documented in this encounter Care Teams Product Development Director Relationship Specialty Start Date End Date Linda Blancas MD [facility] [address] [place] [address] PCP - General 01/06/11 documented as of this encounter
--- OUTSIDE RECORDS SUMMARY | 2024-03-20 15:13 | XMS_ITS | Encounter Summary ---
Author Organization [facility] Address [address] [place] [address] Care Team Providers Care Box Loader Name Role Phone Linda Blancas MD Primary Care Provider [phone] Reason for Visit * Reason Onset Date Comments Results 10/01/2011 Right hip inject ion Other Encounter Details Date Type Department Care Team (Late st Contact Info) Description 10/01/2011 Telephone [facility] Interventional Pain [address] [place] [address] Tammi Gutierrez RN Results (Right hip injection); Social History Tobacco Use Types Packs/Day Years [...] Encounter - Cecilio Paiz RN - 10/06/2011 1604 EDT Date and type of procedure: 10/01/11 R hip inj Provider:Camille Hours of relief:0 % of relief:0 Next appointment: Dayan appt * Telephone Encounter - Tammi Gutierrez RN - 10/01/2011 1529 EDT Diagnostic Right hip injection documented in this encounter Plan of Treatment Upcoming Encounters Date Type Department Care Team (Late st Contact Info) Description 04/02/2024 10:30 EDT Appointment [facility] Interventional Radiology Unit [address] [place] [address] [phone] 04/02/2024 15:15 EDT Office Visit [facility] Surgical Oncology - [address] 325441 Adolfo Carreno MD [address] [place] [address] [phone] 04/05/2024 9:30 EDT Telemedicine [facility] Palliative Care Services [address] [place] [address] [phone] Chichi Woods MD [address] [place] [address] [phone] 04/11/2024 15:00 EDT Telemedicine [facility] Hematology & Oncology [address] [phone] Alisson Carreon MD [address] [place] [address] [phone] 04/13/2024 13:30 EDT Appointment [facility] Hematology & Oncology [address] [phone] 04/13/2024 14:00 EDT Appointment [facility] Hematology & Oncology [address] [phone] 04/16/2024 10:00 EST Telemedicine [facility] Palliative Care Services [address] [place] [address] [phone] Chichi Woods MD [address] [place] [address], [address] [phone] 04/24/2024 9:00 EST Appointment [facility] Radiology CT Outpatient - [address] [phone] 04/24/2024 11:00 EST Appointment [facility] Breast Imaging - [address] [phone] 04/27/2024 12:00 EST Appointment [facility] Hematology & Oncology [address] [phone] 05/02/2024 15:00 EST Telemedicine [facility] Hematology & Oncology [address] [phone] Alisson Carreon MD [address] [place] [address], Level [address] [place] [phone] 05/04/2024 10:15 EST Ancillary Procedure [facility] Cardiology - [address] [place], [place] [phone] 05/04/2024 11:30 EST Appointment [facility] Hematology & Oncology [address] [phone] 05/04/2024 12:00 EST Appointment [facility] Hematology & Oncology [address] [phone] 06/12/2024 13:00 EST Appointment [facility] Radiology CT - [address] [phone] documented as of this encounter Visit Diagnoses Not on filedocumented in this encounter Care Teams Box Loader Relationship Specialty Start Date End Date Linda Blancas MD [facility] [address] [place] [address] PCP - General 01/06/11 documented as of this encounter
--- OUTSIDE RECORDS SUMMARY | 2024-03-20 15:13 | XMS_ITS | Encounter Summary ---
Author Organization [facility] Address [address] [place] [address] Care Team Providers Care Energy Infrastructure Engineer Name Role Phone Linda Blancas MD Primary Care Provider [phone] Adolfo Carreno MD Unavailable [phone] Augustina Colin MD PhD Unavailable Unavailable Reason for Visit * Reason Comments Other Encounter Details Date Type Department Care Team (Late st Contact Info) Description 10/28/2011 Refill [facility] OBGYN Services - [facility] [address] [place] [address] Quita Babb PA-C 111 [facility], Level [address] [place] [phone] Other Social History Tobacco Use Types Packs/Day [...] Da te gabapentin (NEURONTIN) 100 mg capsule TAKE 1 CAPSULE TWICE A DAY, WITH BREAKFAST AND LUNCH 180 Cap 2 10/28/2011 12/08/2011 documented in this encounter Miscellaneous Notes * Telephone Encounter - Nay Hart RN - 10/28/2011 1114 EDT Pharmacy sent a request for Gabapentin 100 mg po bid with breakfast and lunch. [facility] documented in this encounter Plan of Treatment Upcoming Encounters Date Type Department Care Team (Late st Contact Info) Description 04/02/2024 10:30 EDT Appointment [facility] Interventional Radiology Unit [address] [place] [address] [phone] 04/02/2024 15:15 EDT Office Visit [facility] Surgical Oncology - [address] [phone] Adolfo Carreno MD [address] [place] [address] [phone] 04/05/2024 9:30 EDT Telemedicine [facility] - [facility] Palliative Care Services [address] [place] [address] [phone] Chichi Woods MD [address] [place] [address] [phone] 04/11/2024 15:00 EDT Telemedicine [facility] Hematology & Oncology [address] [phone] Alisson Carreon MD [address] [place] [address] [phone] 04/13/2024 13:30 EDT Appointment [facility] Hematology & Oncology [address] [phone] 04/13/2024 14:00 EDT Appointment [facility] Hematology & Oncology [address] [id number] 04/16/2024 10:00 EST Telemedicine [facility] - [facility] Palliative Care Services [address] [place] [address] [phone] Chichi Woods MD 111 [facility] [address] [place] [phone] 04/24/2024 9:00 EST Appointment [facility] Radiology CT Outpatient - [address] [phone] 04/24/2024 11:00 EST Appointment [facility] Breast Imaging - [facility] 1 [place], [place] 385351 04/27/2024 12:00 EST Appointment [facility] Hematology & Oncology - [address] [phone] 05/02/2024 15:00 EST Telemedicine [facility] Hematology & Oncology - [address] [address] Alisson Carreon MD [address] [place] [address], [facility], Level [address] [place] [phone] 05/04/2024 10:15 EST Ancillary Procedure [facility] Cardiology - [address] [place], [place] [phone] 05/04/2024 11:30 EST Appointment [facility] Hematology & Oncology - [address] [phone] 05/04/2024 12:00 EST Appointment [facility] Hematology & Oncology [address] [phone] 06/12/2024 13:00 EST Appointment [facility] Radiology CT - [address] [phone] documented as of this encounter Visit Diagnoses Not on filedocumented in this encounter Discontinued Medications Medication Sig Discontinue Reason Start Date End Da te gabapentin (NEURONTIN) 100 mg capsule Take 1 Cap by mouth 2 times daily with breakfast and lunch. Reorder 06/21/2011 10/28/2011 documented as of this encounter Additional Health Concerns Infection Onset Date Last Indicated Resolved Time R/O COVID-19 12/12/2023 12/12/2023 12/12/2023 15:3 5 EDT R/O COVID-19 01/08/2024 01/08/2024 01/08/2024 18:2 6 EDT R/O COVID-19 01/16/2024 01/16/2024 01/16/2024 17:5 0 EDT documented as of this encounter Care Teams Energy Infrastructure Engineer Relationship Specialty Start Date End Date Linda Blancas MD [facility] [address] [place] [address] PCP - General 01/06/11 Adolfo Carreno MD [address] [place] [address] [phone] General Surgery 04/26/19 Augustina Colin MD PhD [address] [place] [phone] Medical Oncology 04/26/19 documented as of this encounter
--- OUTSIDE RECORDS SUMMARY | 2024-03-20 15:13 | XMS_ITS | Encounter Summary ---
Author Organization [facility] Address [address] [place] [address] Care Team Providers Care Internetworking Technician Name Role Phone None, Provider Primary Care Provider Unavailabl e Encounter Details Date Type Department Care Team (Late st Contact Info) Description 08/28/2010 15:13 EDT - 08/28/2010 23:59 EDT Hospital Encounter [address] [address] Jonah Cox MD [address] [place] [address] Discharge Disposition: Home or Self Care Social [...] by mouth daily. 600mg 2x a day DOXYLAMINE SUCCINATE (UNISOM ORAL) Take by mouth as needed. Takes half a tablet 02/02/2011 01/13/2022 estradiol (VAGIFEM) [address] 1 Tab vaginally twice a week. 24 Tab 3 09/15/2009 07/01/2011 FAMOTIDINE/CALCIUM CARB/MAG (PEPCID COMPLETE ORAL) Take by mouth as needed. 08/25/2011 ibandronate (BONIVA) 150 mg tablet Take 1 Tab by mouth every 30 days. 3 Tab 4 07/09/2010 08/25/2011 IBUPROFEN ORAL Take by mouth as needed. 12/16/2011 Testosterone (ANDROGEL) 1.25 g/Actuation GlPm Place onto the skin three times a week. 1 pump three times per week 75 g 3 09/22/2009 08/25/2011 valACYclovir (VALTREX) 500 mg tablet Take 1 Tab by mouth daily. 90 Tab 3 07/09/2010 06/21/2011 venlafaxine (EFFEXOR-XR) 150 mg XR capsule Take 1 Cap by mouth daily. Take 150 mg by mouth daily. 90 Cap 3 07/09/2010 05/19/2011 documented as of this encounter Discharge Disposition Disposition Code Departure Means Destination Home or Self Prison documented in this encounter Procedure Notes * Inpatient, Physician - 08/28/2010 0000 EDTAssociated Order(s): IMPLANT RECORD - SCANNED documented in this encounter Plan of Treatment Upcoming Encounters Date Type Department Care Team (Late st Contact Info) Description 04/02/2024 10:30 EDT Appointment [facility] Interventional Radiology Unit [address] [place] [address] [phone] 04/02/2024 15:15 EDT Office Visit [facility] Surgical Oncology - [address] [phone] Adolfo Carreno MD 111 [facility], Level 2 [place] [phone] 04/05/2024 9:30 EDT Telemedicine [facility] Palliative Care Services [address] [place], [place] [phone] Chichi Woods MD 111 [facility], [address] [phone] 04/11/2024 15:00 EDT Telemedicine [facility] Hematology & Oncology - [address] [phone] Alisson Carreon MD [address] [place] [address] 2 [place] [phone] 04/13/2024 13:30 EDT Appointment [facility] Hematology & Oncology - [address] [phone] 04/13/2024 14:00 EDT Appointment [facility] Hematology & Oncology [address] [phone] 04/16/2024 10:00 EST Telemedicine [facility] - [facility] Palliative Care Services [address] [place] [address] [phone] Chichi Woods MD [address] [place] [address] [phone] 04/24/2024 9:00 EST Appointment [facility] Radiology CT Outpatient - [address] [id number] 04/24/2024 11:00 EST Appointment [facility] Breast Imaging - [facility] [address] [phone] 04/27/2024 12:00 EST Appointment [facility] Hematology & Oncology - [address] [phone] 05/02/2024 15:00 EST Telemedicine [facility] Hematology & Oncology - [address] [phone] Alisson Carreon MD [address] [place] [address], [facility] 2 [place] [phone] 05/04/2024 10:15 EST Ancillary Procedure [facility] Cardiology - [address] [place] [address] 05/04/2024 11:30 EST Appointment [facility] Hematology & Oncology [address] [address] 05/04/2024 12:00 EST Appointment [facility] Hematology & Oncology [address] [address] 06/12/2024 13:00 EST Appointment [facility] Radiology CT - [address] [address] documented as of this encounter Procedures Procedure Name Priority Date/Time Associated Diagnosis Comments IMPLANT RECORD - SCANNED 08/31/2010 23:25 EDT documented in this encounter Results * IMPLANT RECORD - SCANNED (08/31/2010 23:25 EDT) 08/31/2010 23:2 5 EDT Narrative Procedure Note Inpatient, Physician - 08/28/2010 0:00 EDT Physician Inpatient MD PROCEDURE/MINOR S URGICAL ORDERABLES documented in this encounter Visit Diagnoses Not on filedocumented in this encounter Care Teams Internetworking Technician Relationship Specialty Start Date End Date None, Provider PCP - General 08/21/09 01/05/11 documented as of this encounter
--- OUTSIDE RECORDS SUMMARY | 2024-03-20 15:13 | XMS_ITS | Encounter Summary ---
Author Organization [facility] Address [address] [place] [address] Care Team Providers Care Mailing Machine Assistant Name Role Phone Linda Blancas MD Primary Care Provider [phone] Reason for Visit * Reason Onset Date Comments Appointment Related 01/07/2011 Encounter Details Date Type Department Care Team (Late st Contact Info) Description 01/07/2011 Telephone [facility] Spine Program - [address] [place] [address] Tylor Anthony PA-C 192 [facility] [address] Appointment Related Social History Tobacco [...] Miscellaneous Notes * Telephone Encounter - Carmel Graham - 01/07/2011 2488 EDT Patient is verbally notified in the office that she is scheduled for TFESI on the right at L3-4, L4-5 at CPM on 01/29/11 at 3:15PM. She is to follow up with TANK Paiz two weeks after the injections. Patient Education Topic: TFESI Method: Handout Taught to: Patient Barriers: None Outcomes: verbalized understanding Signature: Carmel Graham MA documented in this encounter Plan of Treatment Upcoming Encounters Date Type Department Care Team (Late st Contact Info) Description 04/02/2024 10:30 EDT Appointment [facility] Interventional Radiology Unit [address] [place] [address] [phone] 04/02/2024 15:15 EDT Office Visit [facility] Surgical Oncology - [address] [phone] Adolfo Carreno MD [address] [place] [address] [phone] 04/05/2024 9:30 EDT Telemedicine [facility] Palliative Care Services [address] [place] [address] [phone] Chichi Woods MD [address] [place] [address] [phone] 04/11/2024 15:00 EDT Telemedicine [facility] Hematology & Oncology [address] [phone] Alisson Carreon MD [address] [place] [address] [phone] 04/13/2024 13:30 EDT Appointment [facility] Hematology & Oncology [address] [phone] 04/13/2024 14:00 EDT Appointment [facility] Hematology & Oncology [address] [phone] 04/16/2024 10:00 EST Telemedicine [facility] Palliative Care Services [address] [place] [address] [phone] Chichi Woods MD [address] [place] [address], [address] [phone] 04/24/2024 9:00 EST Appointment [facility] Radiology CT Outpatient - [address] [phone] 04/24/2024 11:00 EST Appointment [facility] Breast Imaging - [address] [phone] 04/27/2024 12:00 EST Appointment [facility] Hematology & Oncology [address] [phone] 05/02/2024 15:00 EST Telemedicine [facility] Hematology & Oncology [address] [phone] Alisson Carreon MD [address] [place] [address], Level 2 [place] [phone] 05/04/2024 10:15 EST Ancillary Procedure [facility] Cardiology - [address] [place], [place] [phone] 05/04/2024 11:30 EST Appointment [facility] Hematology & Oncology [address] [phone] 05/04/2024 12:00 EST Appointment [facility] Hematology & Oncology [address] [phone] 06/12/2024 13:00 EST Appointment [facility] Radiology CT - [address] [phone] documented as of this encounter Visit Diagnoses Not on filedocumented in this encounter Care Teams Mailing Machine Assistant Relationship Specialty Start Date End Date Linda Blancas MD [facility] [address] [place] [address] PCP - General 01/06/11 documented as of this encounter
--- OUTSIDE RECORDS SUMMARY | 2024-03-20 15:13 | XMS_ITS | Encounter Summary ---
Author Organization [facility] Address [address] [place] [address] Care Team Providers Care Architectural Design Professor Name Role Phone Linda Blancas MD Primary Care Provider [phone] Reason for Visit * Reason Onset Date Comments Other 06/15/2011 Encounter Details Date Type Department Care Team (Late st Contact Info) Description 06/15/2011 Telephone [facility] Plastic, Reconstructive & Cosmetic Surgery - [address], [address] [place], [place] [phone] Pavan Batres MD Other Social History Tobacco [...] Telephone Encounter - Linda Donaldson RN - 06/15/2011 6150 EST Patient wants to know if the tattoo will fade and if so, how long after being applied. Explained that typically, the pigment may need to be touched up at some point, but usually not for a number ofyears. Advised her to discuss this with Mira when she comes in for the procedure. * Telephone Encounter - Anna Rosario - 06/15/2011 1040 EST Patient has an appt with Mira for a tattooing on 07/01 and has questions about the ink that is used documented in this encounter Plan of Treatment Upcoming Encounters Date Type Department Care Team (Late st Contact Info) Description 04/02/2024 10:30 EDT Appointment [facility] Interventional Radiology Unit [address] [place] [address] [phone] 04/02/2024 15:15 EDT Office Visit [facility] Surgical Oncology - [address] [phone] Adolfo Carreno MD [address] [place] [address] 2 [place] [phone] 04/05/2024 9:30 EDT Telemedicine [facility] Palliative Care Services [address] [place] [address] [phone] Chichi Woods MD [address] [place] [address] [phone] 04/11/2024 15:00 EDT Telemedicine [facility] Hematology & Oncology [address] [phone] Alisson Carreon MD [address] [place] [address] [phone] 04/13/2024 13:30 EDT Appointment [facility] Hematology & Oncology [address] [phone] 04/13/2024 14:00 EDT Appointment [facility] Hematology & Oncology [address] [phone] 04/16/2024 10:00 EST Telemedicine [facility] - [facility] Palliative Care Services [address] [place], [place] 209401 Chichi Woods MD [address] [place] [address], [address] [phone] 04/24/2024 9:00 EST Appointment [facility] Radiology CT Outpatient - [address] [id number] 04/24/2024 11:00 EST Appointment [facility] Breast Imaging - [facility] [place] 1 [place], [place] 399011 04/27/2024 12:00 EST Appointment [facility] Hematology & Oncology - [address] [phone] 05/02/2024 15:00 EST Telemedicine [facility] Hematology & Oncology - [address] [phone] Alisson Carreon MD [address] [place] [address], [facility], Level [address] [place] [phone] 05/04/2024 10:15 EST Ancillary Procedure [facility] Cardiology [place] [place] [address] 05/04/2024 11:30 EST Appointment [facility] Hematology & Oncology - [address] [phone] 05/04/2024 12:00 EST Appointment [facility] Hematology & Oncology [address] [phone] 06/12/2024 13:00 EST Appointment [facility] Radiology CT - [address] [phone] documented as of this encounter Visit Diagnoses Not on filedocumented in this encounter Care Teams Architectural Design Professor Relationship Specialty Start Date End Date Linda Blancas MD [address] [place] [address] PCP - General 01/06/11 documented as of this encounter
--- OUTSIDE RECORDS SUMMARY | 2024-03-20 15:13 | XMS_ITS | Encounter Summary ---
Author Organization [facility] Address [address] [place] [address] Care Team Providers Care Semiconductor Wafers Marker Name Role Phone Linda Blancas MD Primary Care Provider [phone] Reason for Visit * Reason Onset Date Comments Follow-up 09/07/2011 Encounter Details Date Type Department Care Team (Late st Contact Info) Description 09/07/2011 Telephone [facility] Spine Program - [address] [address] Tylor Anthony PA-C 192 [facility] [place] [address] Follow-up Social History Tobacco Use Types Packs/Day [...] Miscellaneous Notes * Telephone Encounter - Tylor Anthony PA - 09/08/2011 0838 EDT Called her back and left a message to call me back with the best time to call her. * Telephone Encounter - Ochoa Reis - 09/07/2011 1403 EDT Franca reports that she has gotten 2 injections since her visit with you in December of 2010. She relatesthat her relief was fairly short-lived from both those injections. She has had acupuncture treatment since which has given her 24-36 hours of relief only. Her pain is at an 8-9 on 10 scale when she is walking, with her pain in the right leg, anterior medial to the knee, as well as in her low back. She relates that my pain is exactly where it was when [she] saw Mr. Anthony. She states that she takes 800 mg of ibuprofen at bedtime to help her sleep, and 400 mg twice a day prn. She wonders if it is time for an MRI? And whether she should see you before that. Please advise. documented in this encounter Plan of Treatment Upcoming Encounters Date Type Department Care Team (Late st Contact Info) Description 04/02/2024 10:30 EDT Appointment [facility] Interventional Radiology Unit [address] [place] [address] [phone] 04/02/2024 15:15 EDT Office Visit [facility] Surgical Oncology - [address] [phone] Adolfo Carreno MD [address] [place] [address], [address] [place] [phone] 04/05/2024 9:30 EDT Telemedicine [facility] - [facility] Palliative Care Services [address] [place] [address] [phone] Chichi Woods MD [address] [place] [address], [address] [phone] 04/11/2024 15:[address] [facility] Hematology & Oncology - [address] [phone] Alisson Carreon MD [address] [place] [address], [address] [place] [phone] 04/13/2024 13:[address] [facility] Hematology & Oncology [address] [phone] 04/13/2024 14:[address] [facility] Hematology & Oncology - [address] 770201 04/16/2024 10:00 EST Telemedicine [facility] - [facility] Palliative Care Services [address] [place] [address] [phone] Chichi Woods MD [address] [place] [address], [address] [phone] 04/24/2024 9:00 EST [facility]ointment [facility] Rad[facility] CT Outpatient - [address] [phone] 04/24/2024 11:00 EST Appointment [facility] Breast Imaging - [facility] [address] [phone] 04/27/2024 12:[address] [facility] Hematology & Oncology [address] [phone] 05/02/2024 15:[address] [facility] Hematology & Oncology - [address] 140611 Alisson Carreon MD [address] [place] [address], [address] [place] [phone] 05/04/2024 10:15 EST Ancillary Procedure [facility] Cardiology - [address] [place], [place] [phone] 05/04/2024 11:30 EST Appointment [facility] Hematology & Oncology - [address] [address] 05/04/2024 12:00 EST Appointment [facility] Hematology & Oncology [address] [address] 06/12/2024 13:00 EST [facility] Rad[facility] - [address] [address] documented as of this encounter Visit Diagnoses Not on filedocumented in this encounter Care Teams Semiconductor Wafers Marker Relationship Specialty Start Date End Date Linda Blancas MD [facility] [address] [place] [address] PCP - General 01/06/11 documented as of this encounter
--- OUTSIDE RECORDS SUMMARY | 2024-03-20 15:13 | XMS_ITS | Encounter Summary ---
Author Organization [facility] Address [address] [place] [address] Care Team Providers Care System Software Programmer Name Role Phone Linda Blancas MD Primary Care Provider [phone] Reason for Visit * Reason Comments New Patient Visit consult problem with old BRP Encounter Details Date Type Department Care Team (Latest Contact Info) Description 06/02/2011 14:30 EST Office Visit [facility] Plastic, Reconstructive & Cosmetic Surgery - [address], [address] [place], [place] [address] Pavan Batres MD Personal history of breast cancer (Primary Dx) Discharge Disposition: Auto Discharge Social [...] - - Weight 69.9 kg (154 lb) 06/02/2011 1431 EST Height 157.5 cm (5' 2) 06/02/2011 1431 EST Body Mass Index 28.17 06/02/2011 1431 EST documented in this encounter Discharge Disposition Disposition Code Departure Means Destination Auto Discharge documented in this encounter Progress Notes * Pavan Batres MD - 06/10/2011 1347 EST DIVISION OF PLASTIC AND RECONSTRUCTIVE SURGERY PROGRESS/FOLLOWUP NOTE - 06/02/2011 PROBLEM: Status post right nipple reconstruction, status post right total mastectomy and 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 HISTORY: The patient returned to clinic today to discuss re-tattooing of a right nipple reconstruction site (which we also discussed on 05/27/08) and also wanted me to just check her implant status on the left and the right. She indicated that she has been in very good health and recently got . She has had no redness at the operative sites on her chest, nor pain in the areas of the reconstruction and the augmentation. OBJECTIVE: On examination and with the patient in the standing position, her right breast reconstruction site and her left breast had good symmetry with well-defined inframammary folds. There were nosigns of any inflammatory disease processes of the skin of the left breast nor the right breast reconstruction site. To palpation, her implants were soft (Barrios 1-2/4), mobile, and without pain. The patient has lost projection of her nipple reconstruction site and color of the nipple areolar complex on the right side. The patient had no supraclavicular/infraclavicular/axillary adenopathy to palpation. The patient had 5/5 voluntary pectoralis major contraction bilaterally. MEDICAL DECISION MAKING: Overall, the patient is doing very well and she seems to have no significant problems with her implants. She does have the loss of pigmentation from previous tattooing of theright faux nipple areolar complex and I believe that she would be a good candidate at this point for re-tattooing that site. I told her that I am having [facility] (plastic surgery) do a nipple areolar reconstruction tattooing at this point and that she does an excellent job. The patientwanted to proceed in this manner. PLAN: 1. Photographs of the patient's chest were taken. 2. The patient's request for re-tattooing the reconstructed right nipple areolar complex will be sent to her insurance carrier for prior approval request. Electronically Signed by Pavan Batres MD 06/18/2011 10:55 Pavan Batres MD - Pavan Batres MD - MR Job ID: SM Doc ID: [id number] Ext Doc ID: [id number] cc: * Pavan Batres MD - 06/05/2011 1612 EST This office note has been dictated. documented in this encounter Plan of Treatment Upcoming Encounters Date Type Department Care Team (Late st Contact Info) Description 04/02/2024 10:30 EDT Appointment [facility] Interventional Radiology Unit [address] [place], [place] [phone] 04/02/2024 15:15 EDT Office Visit [facility] Surgical Oncology - [address] [phone] Adolfo Carreno MD [address] [place], [place] [phone] 04/05/2024 9:30 EDT Telemedicine [facility] - [facility] Palliative Care Services [address] [place], [place] [address] Chichi Woods MD [address] [place] [phone] 04/11/2024 15:00 EDT Telemedicine [facility] Hematology & Oncology [address] [phone] Alisson Carreon MD [address] [place] [phone] 04/13/2024 13:30 EDT Appointment [facility] Hematology & Oncology - [address] [phone] 04/13/2024 14:00 EDT Appointment [facility] Hematology & Oncology - [address] [phone] 04/16/2024 10:00 EST Telemedicine [facility] - [facility] Palliative Care Services [address] [place] [address] 936221 Chichi Woods MD [address] [place] [phone] 04/24/2024 9:00 EST Appointment [facility] Radiology CT Outpatient - [address] [address] 04/24/2024 11:00 EST Appointment [facility] Breast Imaging - [facility] [address] 680331 04/27/2024 12:00 EST Appointment [facility] Hematology & Oncology [address] [phone] 05/02/2024 15:00 EST Telemedicine [facility] Hematology & Oncology - [address] [address] Alisson Carreon MD [address] [place] [address], [address] [place] [phone] 05/04/2024 10:15 EST Ancillary Procedure [facility] Cardiology - [place] [address] 05/04/2024 11:30 EST Appointment [facility] Hematology & Oncology - [address] [phone] 05/04/2024 12:00 EST Appointment [facility] Hematology & Oncology - [address] [phone] 06/12/2024 13:00 EST [facility] - [address] [address] documented as of this encounter Visit Diagnoses Diagnosis Personal history of breast cancer- Primary Personal history of malignant neoplasm of breast documented in this encounter Care Teams System Software Programmer Relationship Specialty Start Date End Date Linda Blancas MD [facility] [address] [place] [address] PCP - General 01/06/11 documented as of this encounter
--- OUTSIDE RECORDS SUMMARY | 2024-03-20 15:13 | XMS_ITS | Encounter Summary ---
Author Organization [facility] Address [address] [place] [address] Care Team Providers Care Search Engine Optimization Strategist Name Role Phone Linda Blancas MD Primary Care Provider [phone] Encounter Details Date Type Department Care Team (Late st Contact Info) Description 02/02/2011 Results Only Imaging [facility] Surgical Oncology [address] [phone] Damian Brooke ANP Social History Tobacco Use [...] Appointment [facility] Interventional Radiology Unit [address] [place] [address] [phone] 04/02/2024 15:15 EDT Office Visit [facility] Oncology [address] 039261 Adolfo Carreno MD [address] [facility], [address] [place] [phone] 04/05/2024 9:[address] [facility] Palliative Care Services [address] [place] [address] 722381 Chichi Woosd MD [address] [place] [phone] 04/11/2024 15:00 EDT Telemedicine [facility] Hematology & Oncology [address] [phone] Alisson Carreon MD [address] [place] [address], [address] [place] [phone] 04/13/2024 13:30 EDT Appointment [facility] Hematology & Oncology [address] [phone] 04/13/2024 14:00 EDT Appointment [facility] Hematology & Oncology [address] [phone] 04/16/2024 10:[address] [facility] Palliative Care Services [address] [place] [address] 794131 Chichi Woods MD [address] [place] [phone] 04/24/2024 9:00 EST Appointment [facility] Radiology CT Outpatient - [address] [id number] 04/24/2024 11:00 EST Appointment [facility] Breast Imaging - [address] 230261 04/27/2024 12:00 EST Appointment [facility] Hematology & Oncology [address] [phone] 05/02/2024 15:00 EST Telemedicine [facility] Hematology & Oncology [address] [address] Alisson Carreon MD [address] [facility], [address] [place] [phone] 05/04/2024 10:15 EST Ancillary Procedure [facility] Cardiology - [address] [place] [address] 05/04/2024 11:30 EST Appointment [facility] Hematology & Oncology [address] 327231 05/04/2024 12:00 EST Appointment [facility] Hematology & Oncology [address] [phone] 06/12/2024 13:00 EST Appointment [facility] Radiology CT - [address] [phone] documented as of this encounter Procedures Procedure Name Priority Date/Time Associated Diagnosis Comments IL MAMMO SCREENING DIGITAL 09/08/2011 10:42 EDT documented in this encounter Results * IL MAMMO SCREENING DIGITAL (09/08/2011 10:42 EDT) Anatomical Region Laterality Modality Other 09/08/2011 10:4 2 EDT 09/08/2011 17:25 EDT Narrative 09/08/2011 17:25 EDT Comparison has been made to previous images. Left Breast Findings: (Routine digital views with CAD and implant displaced views) The breast is almost entirely fat (less than 25% fibroglandular). A normal-appearing retro-pectoral, saline implant is present. There are no suspicious masses, calcifications or other abnormalities. IMPRESSION: LEFT BREAST: A normal-appearing retro-pectoral, saline implant. Benign, no evidence of malignancy. Normal interval follow-up is recommended in 12 months. OVERALL ASSESSMENT - CATEGORY 2 - BENIGN END OF IMPRESSION The patient will be notified of her/his breast imaging results via a lay letter from Radiology. Radiology will contact the patient directly regarding any findings which require additional imaging (Category 0) at this time. Procedure Note 09/08/2011 Comparison has been made to previous images. Left Breast Findings: (Routine digital views with CAD and implant displaced views) The breast is almost entirely fat (less than 25% fibroglandular). A normal-appearing retro-pectoral, saline implant is present. There are no suspicious masses, calcifications or other abnormalities. IMPRESSION: LEFT BREAST: A normal-appearing retro-pectoral, saline implant. Benign, no evidence of malignancy. Normal interval follow-up is recommended in 12 months. OVERALL ASSESSMENT - CATEGORY 2 - BENIGN END OF IMPRESSION The patient will be notified of her/his breast imaging results via a lay letter from Radiology. Radiology will contact the patient directly regarding any findings which require additional imaging (Category 0) at this time. Damian SUAREZ IMG MAMMOGRAPHY JAIMEE ACOSTA documented in this encounter Visit Diagnoses Not on filedocumented in this encounter Care Teams Search Engine Optimization Strategist Relationship Specialty Start Date End Date Linda Blancas MD [facility] [address] [place] [address] PCP - General 01/06/11 documented as of this encounter
--- OUTSIDE RECORDS SUMMARY | 2024-03-20 15:13 | XMS_ITS | Encounter Summary ---
Author Organization [facility] Address [address] [place] [address] Care Team Providers Care Fur Nailer Name Role Phone None, Provider Primary Care Provider Unavailabl e Reason for Visit * Reason Comments Gynecologic Exam Pt. denies any compl aints other than hot flashes -wants to talk about gabapentin. Encounter Details Date Type Department Care Team (Late st Contact Info) Description 11/13/2010 15:30 EDT Office Visit [facility] - [address] [address] Quita Babb PA-C [address] [place] [address], [address] [place] [phone] Routine gynecological examination (Primary Dx) [...] Reading Time Taken Comments Blood Pressure 110/70 11/13/2010 1550 EDT Pulse - - Temperature - - Respiratory Rate - - Oxygen Saturation - - Inhaled Oxygen Concentration - - Weight 67.7 kg (149 lb 3.2 oz) 11/13/2010 1550 E DT Height 157.5 cm (5' 2) 11/13/2010 1550 EDT Body Mass Index 27.29 11/13/2010 1550 EDT documented in this encounter Ordered Prescriptions Prescription Sig Dispensed Refills Start Date End Da te gabapentin (NEURONTIN) 300 mg capsule Take 1 Cap by mouth at bedtime. 90 Cap 3 11/14/2010 06/21/2011 documented in this encounter Progress Notes * Quita Babb, TANK - 11/14/2010 0833 EDT Subjective: Patient ID: Sunshine Padilla is an 50 y.o. female. Chief Complaint Patient presents with ??? Gynecologic Exam Pt. denies any complaints other than hot flashes -wants to talk about gabapentin. HPI Sunshine Padilla is a 50 y.o. 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 She denies any vaginal bleeding. He last abnormal pap smear was one year ago, ASCUS with positive HR HPV, benign colposcopy, and her pap in June was NIL. She has had a long standing history [...] had been doing fine, until the about one year ago, when she began having hot flashes and night sweats again, 2-3 times daily. WE discussed this at her last visit and at that time increased her Effexor to 150mg daily, but she states that this has not helped. She recently has heard about neurontin, and wonders if this would be helpful for her. 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 She follows with Damian Brooke in the breast care center regularly for her history of DCIS. Continues on Boniva due to her POF, last DEXA was in 09/20, was overall stable with some improvement. Recommended follow up in 5 years. She is engaged to be , and plans to [place] in the fall!! Patient Active Problem List Diagnoses Code ??? [...] tunnel release 2007 ??? Lipoma resection 2000 No family history on file. Social History Substance Use Topics ??? Smoking status: Never Smoker ??? Smokeless tobacco: Not on file ??? Alcohol Use: 1.5 oz/week 3 drink(s) per week Current outpatient prescriptions ordered prior to encounter Medication Sig Dispense Refill ??? venlafaxine (EFFEXOR-XR) [...] Allergen Reactions ??? Sulfa (Sulfonamide Antibiotics) Hives ROS - See HPI Objective: BP 110/70 Ht 157.5 cm (62) Wt 67.677 kg (149 lb 3.2 oz) BMI 27.29 kg/m2 Physical Exam Constitutional: She is oriented to person, place, and time. She appears well- developed and well-nourished. HENT: Head: Normocephalic and atraumatic. Neck: Normal range of motion. No thyromegaly present. Cardiovascular: Normal rate and regular rhythm. Exam reveals no gallop and no friction rub. No murmur heard. Pulmonary/Chest: Effort normal. No respiratory distress. She has no wheezes. She has no rales. Abdominal: Soft. She exhibits no distension. No tenderness. She has no rebound and no guarding. Genitourinary: Vagina normal. There is no rash, tenderness, lesion or injury on the right labia. There is no rash, tenderness, lesion or injury on the left labia. Uterus is not deviated, not enlarged, not fixed and not tender. Cervix exhibits no motion tenderness, no discharge and no friability. Right adnexum displays no mass, no tenderness and no fullness. Left adnexum displays no mass, no tenderness and no fullness. Musculoskeletal: Normal range of motion. Lymphadenopathy: She has no cervical adenopathy. Neurological: She is alert and oriented to person, place, and time. Skin: Skin is warm and dry. Psychiatric: She has a normal mood and affect. Assessment: Annual egg candler exam History of abnormal pap smears. Premature ovarian failure, hot flashes. Hx of DCIS Plan: Sunshine was seen today for gynecologic exam. Diagnoses and associated orders for this visit: Routine gynecological examination - Pap Test - Screening Pap Smear;Obtain,Prep,Convey To Lab Other Orders - gabapentin (NEURONTIN) 300 mg capsule; Take 1 Cap by mouth at bedtime. Pap sent, if abnormal she will need a colposcopy, if normal can resume yearly pap smears. Discussed treatmetn for hot flashes, will try gabapentin, 300mg at bedtime, 90 with 3 RF, e-scribedto [facility]. t to report back how she is doing, would consider increase to 600 mg QHS. Continue Valtrex. Continue follow up with Damian Brooke. Repeat DEXA in 4 years, given the her t-score is >-1.0, could consider discontiuing Boniva and continue calcium an vitamin D, we did not discuss this today, but will follow up about this consideration. documented in this encounter Plan of Treatment Upcoming Encounters Date Type Department Care Team (Late st Contact Info) Description 04/02/2024 10:30 EDT Appointment [place] Interventional Radiology Unit [address] [place] [address] [phone] 04/02/2024 15:15 EDT Office Visit [place] [facility] - [address] [phone] Adolfo Carreno MD [address] [place] [phone] 04/05/2024 9:30 EDT Telemedicine [facility] Palliative Care Services [address] [place] [address] 786141 Chichi Woods MD [address] [place] [phone] 04/11/2024 15:00 EDT Telemedicine [facility] Hematology & Oncology [address] [phone] Alisson Carreon MD [address] [place] [phone] 04/13/2024 13:30 EDT Appointment [facility] Hematology & Oncology [address] [phone] 04/13/2024 14:00 EDT Appointment [facility] Hematology & Oncology [address] [phone] 04/16/2024 10:00 EST Telemedicine [facility] Palliative Care Services [address] [place] [address] [phone] Chichi Woods MD [address] [place] [address], [place] [address] [place] [phone] 04/24/2024 9:00 EST Appointment [facility] Radiology CT Outpatient - [address] [id number] 04/24/2024 11:00 EST Appointment [place] [facility] - [facility] [address] [place], [place] 8[address]181 04/27/2024 12:00 EST Appointment [facility] Hematology & Oncology [address] [phone] 05/02/2024 15:00 EST Telemedicine [facility] Hematology & Oncology [address] [phone] Alisson Carreon MD [address] [place] [address], [address] [place] [phone] 05/04/2024 10:15 EST Ancillary Procedure [place] [facility] [place] [place] [address] 05/04/2024 11:30 EST Appointment [facility] Hematology & Oncology [address] [phone] 05/04/2024 12:00 EST Appointment [facility] Hematology & Oncology [address] [phone] 06/12/2024 13:00 EST Appointment [facility] Radiology CT - [address] [phone] Scheduled Orders Name Type Priority Associated Diagnoses Orde r Schedule PAP TEST- ORDER ONLY Pathology Routine Routine gynecological examination Ordered: 11/13/2010 SCREENING PAP SMEAR;OBTAIN,PREP,CON VEY TO LAB Procedures Routine Routine gynecological examination Ordered: 11/13/2010 documented as of this encounter Visit Diagnoses Diagnosis Routine gynecological examination- Primary documented in this encounter Care Teams Fur Nailer Relationship Specialty Start Date End Date None, Provider PCP - General 08/21/09 01/05/11 documented as of this encounter
--- OUTSIDE RECORDS SUMMARY | 2024-03-20 15:13 | XMS_ITS | Encounter Summary ---
Author Organization [facility] Address [address] [place] [address] Care Team Providers Care Service Attendant Name Role Phone Linda Blancas MD Primary Care Provider [phone] Reason for Visit * Reason Comments Back Pain low back pain Encounter Details Date Type Department Care Team (Late st Contact Info) Description 01/18/2011 10:45 EDT Office Visit [facility] Interventional Pain [address] [place] [address] Unknown, Provider, Mavis Edwards MD 62 [facility] [address] [place] [address] Amrik Reis, DO [address] [place], [place] [address] Lumbar radicular pain (Primary Dx); Acquired spondylolisthesis; Lumbosacral spondylosis without myelopathy Social [...] Sign Reading Time Taken Comments Blood Pressure 132/88 01/18/2011 1123 EDT Pulse 78 01/18/2011 1123 EDT Temperature 36.3 ??C (97.4 ??F) 01/18/2011 1036 EDT Respiratory Rate 16 01/18/2011 1036 EDT Oxygen Saturation - - Inhaled Oxygen Concentration - - Weight 67.6 kg (149 lb) 01/18/2011 1036 EDT Height 157.5 cm (5' 2) 01/18/2011 1036 EDT Body Mass Index 27.25 01/18/2011 1036 EDT documented in this encounter Patient Instructions * Patient Instructions* Brianda Francisco RN - 01/18/2011 11:15 EDT [facility] [address] [phone] Patient Instructions You have had your right lumbar Epidural Steroid Injection. The purpose of this procedure has been to place medication which may help relieve your pain. Steroid may be used to decrease the swelling and nerve irritation which may be causing your pain. The following information should help you over the next few days regarding what you may expect. Please take it easy for the rest of today. DO NOT drive a car for the [...] functions, please call our office at once. Patient Education Topic: post procedure instruction Method: Handout and Verbal Taught to: Patient Barriers: None Outcomes: independent and verbalized understanding Signature:BRIANDA FRANCISCO RN If you have any questions about your block, please call documented in this encounter Progress Notes * Amrik Reis. - 01/18/2011 1124 EDT Patient Name: Sunshine Padilla : 1960 Date of Service: 01/18/2011 Osd Clerk: Mavis Edwards MD Pipe Inspector: Amrik Reis DO Procedure: Transforaminal epidural steroid injection at the right L4-L5 foramen Interval History: Ms. Padilla presents at the request of Tylor Anthony for injection therapy for her low back pain and right leg pain. She was golfing in August 2010 and it has bothered her since then. She was seen by Neuro Spine for evaluation and lumbar plain films showed spondylolisthesis of L3 on L4. She reports pain in the L4 dermatome region of the anterior right thigh down to the anterior calf, terminating proximal to the foot. Her pain is pins and needles in the calf, achy in the leg, and dull ache in the low back. She denies other symptoms. She denies use of anticoagulants. She deniesrecent infection etiology. The pain causes some reduced physical activity, but she remains active in ballroom dancing. She is pleasant and upbeat, and wishes to proceed with the outlined procedure. ROS: Patient reports low back pain and right leg pain as pertinent positives. Patient denies fevers, chills, nausea, vomitting, headaches, dizziness, or visual changes. Patient denies any known coagulopathies. Patient denies shortness of breath or chest pain. Patient denies bowel or bladder incontinence. Physical Exam: Vital signs: Patient Vitals in the past 24 hrs: BP Temp Temp src Pulse Resp Height Weight 01/18/11 1036 128/76 mmHg 36.3 ??C (97.4 ??F) Tympanic 84 16 157.5 cm (62) 67.586 kg (149 lb) General:awake, alert, cooperative, no apparent distress HEAD: normocephalic and atraumatic Heart: deferred Lungs: deferred Lumbar Spine: paraspinal tenderness at the right lower levels Assessment: Encounter Diagnoses Name Primary? Acquired spondylolisthesis ??? Lumbosacral spondylosis without myelopathy ??? Lumbar radicular pain Yes 724.4 THORACIC OR LUMBOSACRAL NEURITIS OR RADICULITIS UNSPECIFIED Plan: Proceed with transforaminal epidural steroid injection at right L4-L5. Follow up: in 6 week(s) for lumbar transforaminal epidural steroid injection repeat if needed PROCEDURE: The patient gave informed written consent to proceed with this procedure following a detailed discussion of the risks and benefits associated with transforaminal epidural steroid injection in the lumbar spine. The patient was then placed in the prone position, the skin over the lumbosacral area wasprepped with chlorhexadine, and the site was draped with sterile towels. Strict sterile technique was maintained throughout the procedure. A hood moment was performed with full staff present to identify the patient, verify the procedure being performed, and review allergies. Flouoroscopy was used to visualize the right L4-L5 neuroforamen. The skin and subcutaneous tissue over this level was anesthetized by infiltration of 2% lidocaine. A 22 guage 3.5 inch spinal needle was inserted under fluoroscopic guidance using coaxial technique. The needle was slowly advanced by po sterolateral approach to the superior aspect of the foramen. Fluoroscopic images in the AP and lateral views were taken to confirm final needle tip position in the distal foramen. No parasthesias occurred during needle insertion and aspiration was negative. Contrast dye was injected under live fluoroscopy and revealed good spread along the Rt L4 nerve root with no evidence of intravascular or intrathecal uptake. After negative aspiration, 80 mg Depo- Medrol and 1 ml 0.25% Bupivacaine was injected. The needle was then flushed and withdrawn. The patient tolerated the procedure well, there were no apparent complications, and she was discharged in stable condition. Written and verbal discharge instructions were reviewed with the patient prior to discharge. Attending attestation: I was present during the knight and critical portions of the procedure and agree with the resident's/fellow's note. MAVIS EDWARDS MD 01/18/2011 15:19 * Amy Garcia - 01/18/2011 1041 EDT [facility] Rooming Note Does patient have a Bed Placement Coordinator? yes Is patient NPO? (Solids since midnight & liquids for 4 hrs) na Blood Thinners: Is patient on Blood Thinners? no If yes, taking? If stopped, who authorized stopping? Related comments: Infections: Any recent infections, fever of illnesses? no If on antibiotics, is it 7-10 days past the date of completion of antibiotics? no : (for females of child-bearing age) Is there a chance current ? no Other: documented in this encounter Miscellaneous Notes * Scanned Note-Null - Claudio Processing Specialist - 01/19/2011 1517 EDT documented in this encounter Plan of Treatment Upcoming Encounters Date Type Department Care Team (Late st Contact Info) Description 04/02/2024 10:30 EDT Appointment [facility] Interventional Radiology Unit [address] [place] [id number] 04/02/2024 15:15 EDT Office Visit [facility] Surgical Oncology - [facility] [address] [place], [place] [phone] Adolfo Carreno MD 111 [facility], [address] [place] [phone] 04/05/2024 9:30 EDT Telemedicine [facility] Palliative Care Services [address] [place], [place] [phone] Chichi Woods MD 111 [facility], [address] [phone] 04/11/2024 15:00 EDT Telemedicine [facility] Hematology & Oncology - [address] [phone] Alisson Carreon MD [address] [place] [address] [address] [place] [phone] 04/13/2024 13:30 EDT Appointment [facility] Hematology & Oncology - [address] [phone] 04/13/2024 14:00 EDT Appointment [facility] Hematology & Oncology [address] [phone] 04/16/2024 10:00 EST Telemedicine [facility] - [facility] Palliative Care Services [address] [place] [address]71 Chichi Woods MD [address] [place] [address] [phone] 04/24/2024 9:00 EST Appointment [facility] Radiology CT Outpatient - [address] [id number] 04/24/2024 11:00 EST Appointment [facility] Breast Imaging - [address] [id number] 04/27/2024 12:00 EST Appointment [facility] Hematology & Oncology - [address] [phone] 05/02/2024 15:00 EST Telemedicine [facility] Hematology & Oncology - [address] [phone] Alisson Carreon MD [address] [place] [address], [facility] [address] [place] [phone] 05/04/2024 10:15 EST Ancillary Procedure [facility] Cardiology - [address] [place] [address] 05/04/2024 11:30 EST Appointment [facility] Hematology & Oncology [address] [address] 05/04/2024 12:00 EST Appointment [facility] Hematology & Oncology [address] [address] 06/12/2024 13:00 EST Appointment [facility] Radiology CT - [address] [phone] documented as of this encounter Visit Diagnoses Diagnosis Lumbar radicular pain- Primary Thoracic or lumbosacral neuritis or radiculitis, unspecified Acquired spondylolisthesis Lumbosacral spondylosis without myelopathy documented in this encounter Care Teams Service Attendant Relationship Specialty Start Date End Date Linda Blancas MD [facility] [address] [place] [address] PCP - General 01/06/11 documented as of this encounter
--- OUTSIDE RECORDS SUMMARY | 2024-03-20 15:13 | XMS_ITS | Encounter Summary ---
Author Organization [facility] Address [address] [place] [address] Care Team Providers Care Bar Pilot Name Role Phone Linda Blancas MD Primary Care Provider [phone] Reason for Visit * Reason Comments Follow-up Encounter Details Date Type Department Care Team (Late st Contact Info) Description 02/02/2011 13:30 EDT Office Visit [facility] Surgical Oncology - [facility] [address] [place] [address] Damian Sullivan ANP DCIS (ductal carcinoma in situ) (Primary Dx) Social History Tobacco Use Types [...] - - Weight 67.6 kg (149 lb) 02/02/2011 1419 EDT Height 157.5 cm (5' 2) 02/02/2011 1419 EDT Body Mass Index 27.25 02/02/2011 1419 EDT documented in this encounter Progress Notes * Damian Sullivan NP - 02/02/2011 1428 EDT PROBLEM: Status post 01/2004 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 She hada positive anterior skin margin. She had no adjuvant radiation or hormone therapy. She underwent bilateral implant reconstruction with Pavan Batres. This was for augmentation on the left. SUBJECTIVE: Sendy comes for routine posttreatment surveillance. She does regular self exams and denies any new changes or problems. She is otherwise in excellent health currently. She has gained 15 pounds from a year ago. She is getting and has started a new job. She is feeling much happierin her life overall. She denies any new systemic complaints. Past Medical History Diagnosis Date ??? Breast cancer November 2003 DCIS - right breast Past Surgical History Procedure Date ??? Breast surgery 01/30/2004 Right mastectomy ??? Breast reconstruction 01/30/2004 subpectoral implant ??? Carpal tunnel release 2007 ??? Lipoma resection 2000 Outpatient prescriptions marked as taking for the 02/02/11 encounter (Office Visit) with DAMIAN SULLIVAN Medication Sig Dispense Refill ??? gabapentin (NEURONTIN) [...] ORAL) Take by mouth as needed. ??? FAMOTIDINE/CALCIUM CARB/MAG (PEPCID COMPLETE ORAL) Take by mouth as needed. ??? IBUPROFEN ORAL Take by mouth as needed. ??? MULTIVITS W-CA,FE,OTHER MIN (WOMEN'S DAILY FORMULA ORAL) Take by mouth daily. ??? estradiol (VAGIFEM) [address] 1 Tab vaginally twice a week. 24 Tab 3 Allergies Allergen Reactions ??? Sulfa (Sulfonamide Antibiotics) Hives Family History Problem Relation Age of Onset ??? Cancer Father bladder ??? Cancer Maternal Uncle bladder ??? Breast Cancer Paternal Aunt 35 APPLICATION INTEGRATION SPECIALIST HISTORY: Menarche at 13. G0. She used oral contraceptives for 15 years and went through an early menopause at age 38. She had a history of abnormal Pap smears in 2006. SOCIAL HISTORY: She has a new job working in [employer] for [employer]. She travels 2 out of 4 weeks each month. She is getting in March. OBJECTIVE:Ht 157.5 cm (62) Wt 67.586 kg (149 lb) BMI 27.25 kg/m2 On physical exam is a 50-year-old woman in no acute distress. Her color is good. Her skin is warm and dry. Her sclerae are anicteric. She has no cervical, clavicular, or axillary adenopathy. Breast exam is done in sitting and supine positions. She has a well-healed total mastectomy scar on the right side with an implant reconstruction. There is no palpable abnormality appreciated. She has a fadedareolar tattooing inferiorly. The left breast also reveals subpectoral implant with no skin puckering in the overlying tissue. There is no palpable abnormality appreciated. Abdomen is soft, nontenderwith no organomegaly. Mammogram was done 08/2010 showing scattered density with no evidence for malignancy of the left breast. ASSESSMENT AND PLAN: Patient is 7 years status post right total mastectomy for ductal carcinoma in situ. She has no clinical evidence for recurrence. She is encouraged to begin efforts at weight lossand maintain an active lifestyle. She will be seen for mammogram of the left breast in August 2010, and I will see her here for clinical evaluation in 1 year. She knows to come sooner if she develops new changes or problems. .me documented in this encounter Plan of Treatment Upcoming Encounters Date Type Department Care Team (Late st Contact Info) Description 04/02/2024 10:30 EDT Appointment [facility] Interventional Radiology Unit [address] [place], [place] [phone] 04/02/2024 15:15 EDT Office Visit [facility] Surgical Oncology - [facility] [address] [place], [place] [phone] Adolfo Carreno MD 111 [facility], [address] [place] [phone] 04/05/2024 9:30 EDT Telemedicine [facility] Palliative Care Services [address] [place] [phone] Chichi Woods MD [address] [place] [phone] 04/11/2024 15:00 EDT Telemedicine [facility] Hematology & Oncology - [address] [phone] Alisson Carreon MD [address] [place] [address], [address] [place] [phone] 04/13/2024 13:30 EDT Appointment [facility] Hematology & Oncology [address] [address] 04/13/2024 14:00 EDT Appointment [facility] Hematology & Oncology [address] [address] 04/16/2024 10:00 EST Telemedicine [facility] Palliative Care Services [address] [place] [phone] Chichi Woods MD [address] [place] [phone] 04/24/2024 9:00 EST Appointment [facility] Radiology CT Outpatient - [address] [id number] 04/24/2024 11:00 EST Appointment [facility] Breast Imaging - [address] [phone] 04/27/2024 12:00 EST Appointment [facility] Hematology & Oncology [address] [phone] 05/02/2024 15:00 EST Telemedicine [facility] Hematology & Oncology [address] [phone] Alisson Carreon MD [address] [facility], [address] [place] [phone] 05/04/2024 10:15 EST Ancillary Procedure [facility] Cardiology [place] [place] [address] 05/04/2024 11:30 EST Appointment [facility] Hematology & Oncology [address] [id number] 05/04/2024 12:00 EST Appointment [facility] Hematology & Oncology [address] [phone] 06/12/2024 13:00 EST Appointment [facility] Radiology CT - [address] [phone] documented as of this encounter Visit Diagnoses Diagnosis DCIS (ductal carcinoma in situ)- Primary Carcinoma in situ of breast documented in this encounter Care Teams Bar Pilot Relationship Specialty Start Date End Date Linda Blancas MD [address] [place] [address] [address] [place] [address] PCP - General 01/06/11 documented as of this encounter
--- OUTSIDE RECORDS SUMMARY | 2024-03-20 15:13 | XMS_ITS | Encounter Summary ---
Author Organization [facility] Address [address] [place] [address] Care Team Providers Care Lens Coating Technician Name Role Phone Linda Blancas MD Primary Care Provider [phone] Reason for Visit * Reason Comments Breast Cancer Encounter Details Date Type Department Care Team (Latest Contact Info) Description 07/01/2011 11:00 EST Office Visit [facility] Plastic, Reconstructive & Cosmetic Surgery - [address], [address] [place], [place] [phone] Mira Agee PA-C [address] [place] [address] Carmel Galvez MD [address] [facility] [address] [place], [place] [phone] Acquired absence of breast and nipple (Primary [...] :47 EDT documented as of this encounter Discharge Disposition Disposition Code Departure Means Destination Auto Discharge documented in this encounter Progress Notes * Carmel Galvez MD - 07/01/2011 1636 EST Sunshine Bernstein is a patient of Dr Batres who was scheduled for tattooing today who Mira asked me to take a look at to see any further nipple reconstruction could be done. The patient's history was reviewed. She has a saline implant in place for reconstruction and has saline implant on theleft side for augmentation. Her left side is significantly larger than the right. The right has a fairly good shape but is significantly smaller but she does not really seem bothered by the volume asymmetry_. She is, however, bothered by the fact that she had nipple reconstruction that then became infected and she had lost most of the volume. She has a millimeter or 2 of prominence but it is very amorphous and she wishes that she had more of a nipple. On examination, the tissues are very thin. The CB flap or Hi flap is well healed, but the littlebit of prominence that she has is very amorphous, but it feels like subcutaneous tissues are extremely thin. The breast on the left side is augmented. The nipple is approximately in line with the level of the nipple on the left side. ASSESSMENT AND PLAN: The patient and Mira and I talked extensively about the options for repeat nipple reconstruction. I could potentially offer her another attempt at nipple reconstruction . Iwould want to do this in 2 stages because it would be doing it over top of an existing scar. I havehad some success with that approach where the flap is incised but not raised and then two weeks later is transferred. I would probably suggest the use of a small piece of AlloDerm. But even with thisapproach, there is a possibility of complete failure, there is the possibility of exposure of the implant and there is a possibility that even if we have a successful nipple reconstruction, she may lo se almost all volume of it over time. She says that she would like to give it a try because she feels that she would like to know that she tried one more time, so we will hold off on doing the tattooing today and put her on the procedure schedule for a two-stage nipple reconstructions with AlloDermat the second stage. I spent a total of 15 minutes in [id number] time with this patient and 15 minutes of that time was spent in counseling and coordination of care as described above. documented in this encounter Plan of Treatment Upcoming Encounters Date Type Department Care Team (Late st Contact Info) Description 04/02/2024 10:30 EDT Appointment [facility] Interventional Radiology Unit [address] [place] [phone] 04/02/2024 15:15 EDT Office Visit [facility] Surgical Oncology - [address] [phone] Adolfo Carreno MD [address] [place] [phone] 04/05/2024 9:30 EDT Telemedicine [facility] Palliative Care Services [address] [place] [address] [phone] Chichi Woods MD [address] [place] [phone] 04/11/2024 15:00 EDT Telemedicine [facility] Hematology & Oncology [address] [phone] Alisson Carreon MD [address] [place] [phone] 04/13/2024 13:30 EDT Appointment [facility] Hematology & Oncology [address] [phone] 04/13/2024 14:00 EDT Appointment [facility] Hematology & Oncology [address] [phone] 04/16/2024 10:00 EST Telemedicine [facility] Palliative Care Services [address] [place] [address] [phone] Chichi Woods MD [address] [place] [address], [place] [address] [place] [phone] 04/24/2024 9:00 EST Appointment [facility] Radiology CT Outpatient - [address] [phone] 04/24/2024 11:00 EST Appointment [facility] Breast Imaging - [address] [phone] 04/27/2024 12:00 EST Appointment [facility] Hematology & Oncology [address] [phone] 05/02/2024 15:00 EST Telemedicine [facility] Hematology & Oncology [address] [phone] Alisson Carreon MD [address] [place] [address], [address] [place] [phone] 05/04/2024 10:15 EST Ancillary Procedure [facility] Cardiology [place] [address] 05/04/2024 11:30 EST Appointment [facility] Hematology & Oncology [address] [phone] 05/04/2024 12:00 EST Appointment [facility] Hematology & Oncology [address] [id number] 06/12/2024 13:00 EST Appointment [facility] Radiology CT - [address] [phone] documented as of this encounter Visit Diagnoses Diagnosis Acquired absence of breast and nipple- Primary documented in this encounter Care Teams Lens Coating Technician Relationship Specialty Start Date End Date Linda Blancas MD [facility] [address] [place] [address] PCP - General 01/06/11 documented as of this encounter
--- OUTSIDE RECORDS SUMMARY | 2024-03-20 15:13 | XMS_ITS | Encounter Summary ---
Author Organization [facility] [place] [facility] Address [address] [place] [address] Care Team Providers Care Pediatric Lpn Name Role Phone None, Provider Primary Care Provider Unavailabl e Encounter Details Date Type Department Care Team (Late st Contact Info) Description 07/06/2010 Results Only [facility] OBGYN Services - [address] [address] Quita Babb PA-C [address] [place] [address] [phone] Social History Tobacco Use Types Packs/Day Years [...] [facility] Inter[facility] Unit [address] [place] [address] [phone] 04/02/2024 15:15 EDT Office Visit [facility] Surgical Oncology - [address] [address] Adolfo Carreno MD [address] [place] [address], [place] [phone] 04/05/2024 9:30 EDT Telemedicine [facility] Palliative Care Services [address] [place] [address] 680331 Chichi Woods MD [address] [place] [address] [phone] 04/11/2024 15:00 EDT Telemedicine [facility] Hematology & Oncology - [address] 386241 Alisson Carreon MD [address] [place] [address] 2 [place] [phone] 04/13/2024 13:30 EDT Appointment [facility] Hematology & Oncology - [address] 086001 04/13/2024 14:00 EDT Appointment [facility] Hematology & Oncology - [address] 032381 04/16/2024 10:00 EST Telemedicine [facility] Palliative Care Services [address] [place] [address] Chichi Woods MD [address] [place] [address] [phone] 04/24/2024 9:00 EST Appointment [facility] Radiology CT Outpatient - [address] 851011 04/24/2024 11:00 EST Appointment [facility] Breast Imaging - [address] 900171 04/27/2024 12:00 EST Appointment [facility] Hematology & Oncology [address] [address] 05/02/2024 15:00 EST Telemedicine [facility] Hematology & Oncology [address] [address] Alisson Carreon MD [address] [place] [address], Level 2 [place] [phone] 05/04/2024 10:15 EST Ancillary Procedure [facility] Cardiology - [address] [place] [address] 05/04/2024 11:30 EST Appointment [facility] Hematology & Oncology [address] [address] 05/04/2024 12:00 EST Appointment [facility] Hematology & Oncology [address] [address] 06/12/2024 13:00 EST Appointment [facility] Radiology CT - [address] [phone] documented as of this encounter Procedures Procedure Name Priority Date/Time Associated Diagnosis Comments CYTOPATHOLOGY Routine 07/06/2010 0:00 EST documented in this encounter Results * CYTOPATHOLOGY (07/06/2010 0:00 EST) Pathology Report: CYTOPATHOLOGY REPORT ? Reports generated via electronic interface contain original data; ? however they are lacking the format of the original report. ? Caution should be taken when reading/interpreti ng unformatted reports. ? Name: ? PARDEEP SMITH ? Accession #: ? [id number] ? : ? 1960 (Age: 49) ??F ?Collect Date: ? 07/06/2010 ? Location: ? OBGYN ? Receive Date: ? 07/07/2010 ? Provider: ?QUITA B WILMER PA ? Copy to: ? Specimen/Source: ?Pap Test, Cervix/Endocervix, ThinPrep Imaging System ? with manual evaluation ? Last Menstrual Period: ? Previous Gynecologic Pathology: ? 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 Other: ? Additional clinical information: premature ovarian failure ? SPECIMEN ADEQUACY ? Satisfactory for Evaluation ? - transformation zone component present ? GENERAL CATEGORIZATION ? Negative for Intraepithelial Lesion or Malignancy ? Document reviewed and electronically signed by: ? Marie Stevens, CT(ASCP) ? Report Date: ??07/13/2010 11:50 ? End of Report ? RENÉE CALDERA 07/06/2010 07/07/2010 Quita Babb PA-C PATHOLOGY JAIMEE ACOSTA RENÉE CALDERA [address] [place] [address] documented in this encounter Visit Diagnoses Not on filedocumented in this encounter Care Teams Pediatric Lpn Relationship Specialty Start Date End Date None, Provider PCP - General 08/21/09 01/05/11 documented as of this encounter
--- OUTSIDE RECORDS SUMMARY | 2024-03-20 15:13 | XMS_ITS | Encounter Summary ---
Author Organization [facility] Address [address] [place] [address] Care Team Providers Care Forestry Tree Pruner Name Role Phone Linda Blancas MD Primary Care Provider [phone] Reason for Visit * Reason Onset Date Comments Post-OP Follow Up 08/27/2011 questions abou t dressing Encounter Details Date Type Department Care Team (Late st Contact Info) Description 08/27/2011 Telephone [facility] Plastic, Reconstructive & Cosmetic Surgery - [address], [address] [place], [place] [address] Carmel Uribe MD [address] [facility] [address] [place], [place] [phone] Post-OP Follow Up (questions about dressing) Social History Tobacco Use Types Packs/Day Years [...] encounter Miscellaneous Notes * Telephone Encounter - Lolita Mark RN - 08/27/2011 0858 EDT T/c back to pt: Spotting, can she put a barrier on sx site to protect clothes. Yes. We'll see her at follow up appt. * Telephone Encounter - Anna Rosario - 08/27/2011 0857 EDT Patient had surgery with Dr. Uribe on tue for nipple reconstruction and has some questions about her bandages documented in this encounter Plan of Treatment Upcoming Encounters Date Type Department Care Team (Late st Contact Info) Description 04/02/2024 10:30 EDT Appointment [facility] Interventional Radiology Unit [address] [place] [address] [phone] 04/02/2024 15:15 EDT Office Visit [facility] Surgical Oncology - [address] [phone] Adolfo Carreno MD [address] [place] [address] [phone] 04/05/2024 9:30 EDT Telemedicine [facility] - [facility] Palliative Care Services [address] [place] [address] [phone] Chichi Woods MD [address] [place] [address] [phone] 04/11/2024 15:00 EDT Telemedicine [facility] Hematology & Oncology - [address] 147741 Alisson Carreon MD [address] [place] [address] [phone] 04/13/2024 13:30 EDT Appointment [facility] Hematology & Oncology [address] [phone] 04/13/2024 14:00 EDT Appointment [facility] Hematology & Oncology - [address] 084691 04/16/2024 10:00 EST Telemedicine [facility] - [facility] Palliative Care Services [address] [place], [place] 953151 Chichi Woods MD [address] [facility], [address] [phone] 04/24/2024 9:00 EST Appointment [facility] Radiology CT Outpatient - [address] [phone] 04/24/2024 11:00 EST Appointment [facility] Breast Imaging - [facility] [address] [place] [address] [place], [place] [address] 04/27/2024 12:00 EST Appointment [facility] Hematology & Oncology - [address] [phone] 05/02/2024 15:00 EST Telemedicine [facility] Hematology & Oncology - [address] [phone] Alisson Carreon MD [address] [place] [address], Level 2 [place] [phone] 05/04/2024 10:15 EST Ancillary Procedure [facility] Cardiology [place] [address] 05/04/2024 11:30 EST Appointment [facility] Hematology & Oncology - [address] [phone] 05/04/2024 12:00 EST Appointment [facility] Hematology & Oncology - [address] [phone] 06/12/2024 13:00 EST Appointment [facility] Center Radiology CT - [address] [address] documented as of this encounter Visit Diagnoses Not on filedocumented in this encounter Care Teams Forestry Tree Pruner Relationship Specialty Start Date End Date Linda Blancas MD [facility] [address] [place] [address] PCP - General 01/06/11 documented as of this encounter
--- OUTSIDE RECORDS SUMMARY | 2024-03-20 15:13 | XMS_ITS | Encounter Summary ---
Author Organization [facility] Address [address] [place] [address] Care Team Providers Care Finishing Machine Tender Name Role Phone Linda Blancas MD Primary Care Provider [phone] Encounter Details Date Type Department Care Team (Late st Contact Info) Description 06/21/2011 Orders Only [facility] OBGYN Services - [address] [phone] Quita Babb PA-C [address] [facility], Level 2 [place] [phone] Medication refill (Primary Dx) Social History Tobacco Use Types [...] at bedtime. 90 Cap 3 06/21/2011 12/08/2011 valACYclovir (VALTREX) 500 mg tablet Take 1 Tab by mouth daily. 90 Tab 3 06/21/2011 05/29/2012 venlafaxine (EFFEXOR-XR) 150 mg XR capsule Take 1 Cap by mouth daily. 90 Cap 3 06/21/2011 07/19/2012 documented in this encounter Progress Notes * Quita Babb PA - 06/21/2011 1209 EST See other note from this encounter. * Quita Babb PA - 06/21/2011 1204 EST Email received from Sendy requesting refills on her medications to be sent to [facility], as she is newly . Happy New Year Quita! I hope your holidays were happy and that Jennifer was good to you. I made out like a bandit. My new - yes, I got in [facility] in March!! - totally spoiled me. There???s no doubt about it; I have much to be grateful for. So, here we are at the beginning of a new year, and I???m working through some issues resulting from a medical plan change. While I still use [employer], a new account has been created for me which means I need new prescriptions. Could you please submit to [employer] the following one year prescriptions (with 90 day refills) under my new name, Sunshine Marr???Ammon, and new ID number, [id number]: Venlafaxine (Effexor XR generic) 150mg Valacyclovir (Valtrex generic) 500mg Gabapentin (Neurontin generic). As the email trail below shows, the original prescription was for 300mg but since my hot flashes have returned with a vengeance, I???m thinking it may be time to change the dose to 600mg. Do you agree? BTW, last week I had my first visit with an anatomy professor (one rec ommended by [facility]) in an effort to get some daytime relief from my hot flashes. They have grown in intensity the past four months, and this is the only thing left that I haven???t tried in the past seven years (post Mastectomy). I???m even footing the bill myself since I confirmedthis morning with my health plan provider that acupuncture is covered only for nausea resulting from chemotherapy, , and post operative procedures. kt Watkins? If you have any questions, feel free to reach out to me via this email address or phone at [phone]. Thanks in advance! Sendy documented in this encounter Plan of Treatment Upcoming Encounters Date Type Department Care Team (Late st Contact Info) Description 04/02/2024 10:30 EDT Appointment [facility] Interventional Radiology Unit [address] [place] [address] [phone] 04/02/2024 15:15 EDT Office Visit [facility] Surgical Oncology - [address] 074241 Adolfo Carreno MD [address] [place] [address] 2 [place] [phone] 04/05/2024 9:30 EDT Telemedicine [facility] - [facility] Palliative Care Services [address] [place] [address] [phone] Chichi Woods MD [address] [place] [address] [phone] 04/11/2024 15:00 EDT Telemedicine [facility] Hematology & Oncology - [address] [phone] Alisson Carreon MD [address] [place] [address] [phone] 04/13/2024 13:30 EDT Appointment [facility] Hematology & Oncology [address] [phone] 04/13/2024 14:00 EDT Appointment [facility] Hematology & Oncology - [address] [phone] 04/16/2024 10:00 EST Telemedicine [facility] - [facility] Palliative Care Services [address] [place], [place] 080[address] Chichi Woods MD [address] [facility], [address] [phone] 04/24/2024 9:00 EST Appointment [facility] Radiology CT Outpatient - [address] 484161 04/24/2024 11:00 EST Appointment [facility] Breast Imaging - [address] [phone] 04/27/2024 12:00 EST Appointment [facility] Hematology & Oncology - [address] 747461 05/02/2024 15:00 EST Telemedicine [facility] Hematology & Oncology - [address] 343631 Alisson Carreon MD [address] [place] [address], [facility] [address] [place] [phone] 05/04/2024 10:15 EST Ancillary Procedure [facility] Cardiology - [place] [place] [address] 05/04/2024 11:30 EST Appointment [facility] Hematology & Oncology - [address] 980791 05/04/2024 12:00 EST Appointment [facility] Hematology & Oncology - [address] [address] 06/12/2024 13:00 EST Appointment [facility] Center Radiology CT - [address] [address] documented as of this encounter Visit Diagnoses Diagnosis Medication refill- Primary Issue of repeat prescriptions documented in this encounter Discontinued Medications Medication Sig Discontinue Reason Start Date End Da te venlafaxine (EFFEXOR-XR) 150 mg XR capsule TAKE 1 CAPSULE DAILY Reorder 05/19/2011 2 valACYclovir (VALTREX) 500 mg tablet Take 1 Tab by mouth daily. Reorder 07/09/2010 06/21/2011 gabapentin (NEURONTIN) 300 mg capsule Take 1 Cap by mouth at bedtime. Reorder 11/14/2010 06/21/2011 documented as of this encounter Care Teams Finishing Machine Tender Relationship Specialty Start Date End Date Linda Blancas MD [facility] [address] [place] [address] PCP - General 01/06/11 documented as of this encounter
--- OUTSIDE RECORDS SUMMARY | 2024-03-20 15:13 | XMS_ITS | Encounter Summary ---
Author Organization [facility] Address [address] [place] [address] Care Team Providers Care Grain Broker And Market Operator Name Role Phone Linda Blancas MD Primary Care Provider [phone] Reason for Referral * Consult (Routine/Next Available) - Closed Specialty Diagnoses / Procedures Referred By Contac t Referred To Contact Pain Medicine Diagnoses Lumbar radiculopathy Low back pain Tylor Anthony PA-C [address] [place] [phone] [facility] [address] [facility] [place] [address] Referral ID Status Reason Start Date Expiration Date V isits Requested Visits Authorized [id number] Closed Specialty Services Required 09/09/2011 1 1 Question Answer Reason for Request: TESI L4-5 right Encounter Details Date Type Department Care Team (Late st Contact Info) Description 09/09/2011 Orders Only [facility] Spine Program - [place] [address] [place] [address] Tylor Anthony PA-C [address] [place] [phone] Lumbar radiculopathy (Primary Dx); Low back pain Social History Tobacco Use Types Packs/Day [...] Appointment [facility] Interventional Radiology Unit [address] [place] [address] [phone] 04/02/2024 15:15 EDT Office Visit [facility] Surgical Oncology - [address] [phone] Adolfo Carreno MD [address] [place] [address] [phone] 04/05/2024 9:30 EDT Telemedicine [facility] - [facility] Palliative Care Services [address] [place] [address] 385371 Chichi Woods MD [address] [place] [address] [phone] 04/11/2024 15:00 EDT Telemedicine [facility] Hematology & Oncology [address] [phone] Alisson Carreon MD [address] [place] [address] [phone] 04/13/2024 13:30 EDT Appointment [facility] Hematology & Oncology [address] [phone] 04/13/2024 14:00 EDT Appointment [facility] Hematology & Oncology [address] [phone] 04/16/2024 10:00 EST Telemedicine [facility] - [facility] Palliative Care Services [address] [place] [address] 836201 Chichi Woods MD [address] [place] [address], [address] [phone] 04/24/2024 9:00 EST Appointment [facility] Radiology CT Outpatient - [address] [phone] 04/24/2024 11:00 EST Appointment [facility] Breast Imaging - [facility] [address] [place] [address] [place], [place] 453081 04/27/2024 12:00 EST Appointment [facility] Hematology & Oncology - [address] [phone] 05/02/2024 15:00 EST Telemedicine [facility] Hematology & Oncology - [address] [phone] Alisson Carreon MD [address] [place] [address], Level [address] [place] [phone] 05/04/2024 10:15 EST Ancillary Procedure [facility] Cardiology - [address] [place], [place] [phone] 05/04/2024 11:30 EST Appointment [facility] Hematology & Oncology - [address] [phone] 05/04/2024 12:00 EST Appointment [facility] Hematology & Oncology [address] [phone] 06/12/2024 13:00 EST Appointment [facility] Radiology CT - [address] [phone] Scheduled Referrals Name Type Priority Associated Diagnoses Orde r Schedule AMB CONSULT PAIN CLINIC Outpatient Referral Routine Lumbar radiculopathy Low back pain Ordered: 09/09/2011 documented as of this encounter Procedures Procedure Name Priority Date/Time Associated Diagnosis Comments MR LUMBAR SPINE WO CONTRAST 09/27/2011 19:20 EDT documented in this encounter Results * MR LUMBAR SPINE WO CONTRAST (09/27/2011 19:20 EDT) Anatomical Region Laterality Modality Other 09/27/2011 19:2 0 EDT 09/28/2011 13:16 EDT Narrative 09/28/2011 13:16 EDT MRI LUMBAR SPINE WITHOUT CONTRAST September 27, 2011. Indication: Low back pain and right leg pain. Comparison: Plain films January 07, 2011. Technique: Sagittal T1, T2 and STIR, axial T1 and T2 and coronal T2 weighted MR images of the lumbar spine were obtained. Findings: Coronal T2 weighted images demonstrate a small amount of fluid within the hip joints on the right and the left. There is mild levoscoliotic curvature. Slight lateral listhesis of L3 on L4 and L4 on L5 is noted. There is grade 1 anterolisthesis of L3 on L4, L4 on L5 and L5 on S1. Vertebral body heights are preserved. Apart from reactive endplate changes and scattered hemangiomata, marrow signal intensity is unremarkable. There is disc space narrowing and loss of disc signal at L3-L4, L4-L5 and L5-S1 consistent with degenerative disc disease. T12-L1: No disc herniation or spinal stenosis is noted. L1-L2: No disc herniation or spinal stenosis is noted. L2-L3: There is mild facet degeneration. No focal disc herniation or spinal stenosis is noted. L3-L4: There is global disc bulge eccentric to the left. Hypertrophy of the facet joints is present. There is mild right lateral recess narrowing, severe right neuroforaminal stenosis and moderate left neuroforaminal narrowing. L4-L5: There is global disc bulge and facet degeneration. There is moderate bilateral neuroforaminal stenosis. L5-S1: There is mild global disc bulge and facet degeneration. There is mild left neuroforaminal narrowing. The conus terminates normally at L1. Impression: 1. Lumbar degenerative disc and degenerative joint disease. 2. Multilevel lumbar listhesis. 3. Lateral recess narrowing on the right at L3-L4. 4. Neuroforaminal stenosis bilaterally at L3-L4, L4-L5 and on the left at L5-S1. 5. Small bilateral hip joint effusions. Procedure Note 09/28/2011 MRI LUMBAR SPINE WITHOUT CONTRAST September 27, 2011. Indication: Low back pain and right leg pain. Comparison: Plain films January 07, 2011. Technique: Sagittal T1, T2 and STIR, axial T1 and T2 and coronal T2 weighted MR images of the lumbar spine were obtained. Findings: Coronal T2 weighted images demonstrate a small amount of fluid within the hip joints on the right and the left. There is mild levoscoliotic curvature. Slight lateral listhesis of L3 on L4 and L4 on L5 is noted. There is grade 1 anterolisthesis of L3 on L4, L4 on L5 and L5 on S1. Vertebral body heights are preserved. Apart from reactive endplate changes and scattered hemangiomata, marrow signal intensity is unremarkable. There is disc space narrowing and loss of disc signal at L3-L4, L4-L5 and L5-S1 consistent with degenerative disc disease. T12-L1: No disc herniation or spinal stenosis is noted. L1-L2: No disc herniation or spinal stenosis is noted. L2-L3: There is mild facet degeneration. No focal disc herniation or spinal stenosis is noted. L3-L4: There is global disc bulge eccentric to the left. Hypertrophy of the facet joints is present. There is mild right lateral recess narrowing, severe right neuroforaminal stenosis and moderate left neuroforaminal narrowing. L4-L5: There is global disc bulge and facet degeneration. There is moderate bilateral neuroforaminal stenosis. L5-S1: There is mild global disc bulge and facet degeneration. There is mild left neuroforaminal narrowing. The conus terminates normally at L1. Impression: 1. Lumbar degenerative disc and degenerative joint disease. 2. Multilevel lumbar listhesis. 3. Lateral recess narrowing on the right at L3-L4. 4. Neuroforaminal stenosis bilaterally at L3-L4, L4-L5 and on the left at L5-S1. 5. Small bilateral hip joint effusions. Tylor RENEE MRI ORDERABLES documented in this encounter Visit Diagnoses Diagnosis Lumbar radiculopathy- Primary Thoracic or lumbosacral neuritis or radiculitis, unspecified Low back pain Lumbago documented in this encounter Care Teams Grain Broker And Market Operator Relationship Specialty Start Date End Date Linda Blancas MD [address] [place] [address] PCP - General 01/06/11 documented as of this encounter
--- OUTSIDE RECORDS SUMMARY | 2024-03-20 15:13 | XMS_ITS | Encounter Summary ---
Author Organization [facility] Address [address] [place] [address] Care Team Providers Care Fire Warden Name Role Phone Linda Blancas MD Primary Care Provider [phone] Reason for Visit * Reason Comments Post-OP Follow Up right nipple reconst ruction; procedure 09/08/11 Encounter Details Date Type Department Care Team (Latest Contact Info) Description 09/16/2011 10:15 EDT Office Visit [facility] Plastic, Reconstructive & Cosmetic Surgery - [address], [address] [place] [address] Mira Agee PA-C [address] [place] [address] Acquired absence of breast and nipple (Primary [...] in this encounter Progress Notes * Mira Agee PA - 09/16/2011 1233 EDT Subjective - One week s/p nipple reconstruction. She is very happy with the result so far and has no concerns. Objective - Right nipple incision C/D/I and healing well. Assessment - 51 yo female s/p right nipple reconstruction. Plan - Nipple donut for one week longer. Wait 2 months before tattooing. Okay to tattoo at a parlor. Will d/w Dr. Uribe asymmetry options and call patient. TANK Boudreaux 09/16/2011 12:36 documented in this encounter Plan of Treatment Upcoming Encounters Date Type Department Care Team (Late st Contact Info) Description 04/02/2024 10:30 EDT Appointment [facility] Interventional Radiology Unit [address] [place] [address] [phone] 04/02/2024 15:15 EDT Office Visit [facility] Surgical Oncology - [address] [phone] Adolfo Carreno MD [address] [place] [address] [phone] 04/05/2024 9:30 EDT Telemedicine [facility] - [facility] Palliative Care Services [address] [place] [address] [phone] Chichi Woods MD [address] [place] [address] [phone] 04/11/2024 15:00 EDT Telemedicine [facility] Hematology & Oncology [address] [phone] Alisson Carreon MD [address] [place] [address] 2 [place] [phone] 04/13/2024 13:30 EDT Appointment [facility] Hematology & Oncology - [address] [phone] 04/13/2024 14:00 EDT Appointment [facility] Hematology & Oncology - [address] [phone] 04/16/2024 10:00 EST Telemedicine [facility] - [facility] Palliative Care Services [address] [place] [address] [phone] Chichi Woods MD [address] [place] [address], [address] [phone] 04/24/2024 9:00 EST Appointment [facility] Radiology CT Outpatient - [address] [id number] 04/24/2024 11:00 EST Appointment [facility] Breast Imaging - [address] [phone] 04/27/2024 12:00 EST Appointment [facility] Hematology & Oncology [address] [phone] 05/02/2024 15:00 EST Telemedicine [facility] Hematology & Oncology [address] [phone] Alisson Carreon MD [address] [place] [address], [facility], Level [address] [place] [phone] 05/04/2024 10:15 EST Ancillary Procedure [facility] Cardiology - [place] [address] 05/04/2024 11:30 EST Appointment [facility] Hematology & Oncology [address] [phone] 05/04/2024 12:00 EST Appointment [facility] Hematology & Oncology - [address] 072401 06/12/2024 13:00 EST Appointment [facility] Radiology CT - Main [address] [phone] documented as of this encounter Visit Diagnoses Diagnosis Acquired absence of breast and nipple- Primary documented in this encounter Historical Medications * This list may reflect changes made after this encounter. Medication Sig Dispensed Refills Start Date End Date IBUPROFEN ORAL Take by mouth as needed. 0 10/01/2011 added in this encounter Care Teams Fire Warden Relationship Specialty Start Date End Date Linda Blancas MD [facility] [address] [place] [address] PCP - General 01/06/11 documented as of this encounter
--- OUTSIDE RECORDS SUMMARY | 2024-03-20 15:13 | XMS_ITS | Encounter Summary ---
Author Organization [facility] Address [address] [place] [address] Care Team Providers Care Dispatcher Service Chief Name Role Phone Linda Blancas MD Primary Care Provider [phone] Adolfo Carreno MD Unavailable [phone] Augustina Colin MD PhD Unavailable Unavailable Reason for Visit * Reason Onset Date Comments Medications Refill 05/19/2011 Encounter Details Date Type Department Care Team (Late st Contact Info) Description 05/19/2011 Refill [facility] - [address] [phone] Quita Babb PA-C [address] [facility], [address] [place] [phone] Medications Refill Social History Tobacco Use Types [...] capsule TAKE 1 CAPSULE DAILY 90 Cap 0 05/19/2011 06/21/2011 documented in this encounter Miscellaneous Notes * Telephone Encounter - Carmel Decker RN - 05/19/2011 0854 EST Rec'd Surescript /MEDCO for Venlafaxine SR 150 mg refill Last MYL 11/13/10 Last refill 07/09/10 #90/3 refills documented in this encounter Plan of Treatment Upcoming Encounters Date Type Department Care Team (Late st Contact Info) Description 04/02/2024 10:30 EDT Appointment [facility] Inter[facility] Radiology Unit [address] [place] [address] [phone] 04/02/2024 15:15 EDT Office Visit [facility] Surgical Oncology - [address] [phone] Adolfo Carreno MD [address] [place] [address] 2 [place] [phone] 04/05/2024 9:30 EDT Telemedicine [facility] - [facility] [address] [place] [address] [phone] Chichi Woods MD [address] [place] [address], [address] [phone] 04/11/2024 15:00 EDT Telemedicine [facility] Hematology & Oncology [address] [phone] Alisson Carreon MD [address] [place] [address] 2 [place] [phone] 04/13/2024 13:30 EDT Appointment [facility] Hematology & Oncology [address] [phone] 04/13/2024 14:00 EDT Appointment [facility] Hematology & Oncology - [address] [phone] 04/16/2024 10:00 EST Telemedicine [facility] - [facility] [address] [place] [address] [phone] Chichi Woods MD [address] [place] [address], [address] [phone] 04/24/2024 9:00 EST Appointment [facility] Radiology CT Outpatient - [address] [phone] 04/24/2024 11:00 EST Appointment [facility] Breast Imaging - [address] [phone] 04/27/2024 12:00 EST Appointment [facility] Hematology & Oncology - [address] [phone] 05/02/2024 15:00 EST Telemedicine [facility] Hematology & Oncology - [address] [phone] Alisson Carreon MD [address] [place] [address], [address] [place] [phone] 05/04/2024 10:15 EST Ancillary Procedure [facility] [place] [address] 05/04/2024 11:30 EST Appointment [facility] Hematology & Oncology - [address] [phone] 05/04/2024 12:00 EST Appointment [facility] Hematology & Oncology - [address] [phone] 06/12/2024 13:[address] [facility] Radiology CT - [address] [address] documented as of this encounter Visit Diagnoses Not on filedocumented in this encounter Discontinued Medications Medication Sig Discontinue Reason Start Date End Da te venlafaxine (EFFEXOR-XR) 150 mg XR capsule Take 1 Cap by mouth daily. Take 150 mg by mouth daily. Reorder 07/09/2010 05/19/2011 documented as of this encounter Additional Health Concerns Infection Onset Date Last Indicated Resolved Time R/O COVID-12/12/2023 12/12/2023 12/12/2023 15:3 5 EDT R/O COVID-19 01/08/2024 01/08/2024 01/08/2024 18:2 6 EDT R/O COVID-19 01/16/2024 01/16/2024 01/16/2024 17:5 0 EDT documented as of this encounter Care Teams Dispatcher Service Chief Relationship Specialty Start Date End Date Linda Blancas MD [facility] [address] [place] [address] PCP - General 01/06/11 Adolfo Carreno MD [address] [place] [phone] General Surgery 04/26/19 Augustina Colin MD PhD [address] [phone] Medical Oncology 04/26/19 documented as of this encounter
--- OUTSIDE RECORDS SUMMARY | 2024-03-20 15:13 | XMS_ITS | Encounter Summary ---
Author Organization [facility] Address [address] [place] [address] Care Team Providers Care Lieutenant Shift Supervisor Name Role Phone Linda Blancas MD Primary Care Provider [phone] Reason for Visit * Reason Comments Pain right back hip, mini mal to leg Encounter Details Date Type Department Care Team (Late st Contact Info) Description 03/02/2011 12:30 EDT Office Visit [facility] Interventional Pain [address] [place] [address] Unknown, Provider, Lake Mcallister, DO [address] [phone] Amrik Reis, DO [address] [place], [place] [phone] Lumbar radicular pain; Acquired spondylolisthesis; Lumbosacral spondylosis [...] Sign Reading Time Taken Comments Blood Pressure 165/89 03/02/2011 1317 EDT Pulse 114 03/02/2011 1317 EDT Temperature 36.8 ??C (98.2 ??F) 03/02/2011 1225 EDT Respiratory Rate 16 03/02/2011 1317 EDT Oxygen Saturation - - Inhaled Oxygen Concentration - - Weight 67.6 kg (149 lb) 03/02/2011 1225 EDT Height 157.5 cm (5' 2) 03/02/2011 1225 EDT Body Mass Index 27.25 03/02/2011 1225 EDT documented in this encounter Patient Instructions * Patient Instructions* Karen Mckeon RN - 03/02/2011 13:08 EDT [facility] [address] [phone] Patient Instructions You have had your right lumbar Transforaminal Epidural Steroid Injection. The purpose of this [...] your block, please call Patient Education Topic: L3-4, L4-5 transforaminal Epidural steroid injection Method: Handout and Verbal Taught to: Patient Barriers: None Outcomes: independent and verbalized understanding Signature: Karen Mckeon RN documented in this encounter Progress Notes * Amrik Reis - 03/02/2011 1259 EDT Patient Name: Sunshine Padilla : 1960 Date of Service: 03/02/2011 Rx Specialist: Mavis Edwards MD Filling Separator: Amrik Reis DO Procedure: Transforaminal epidural steroid injection at the right L3-L4 and L4-L5 foramen The patient was last seen 01/18/11 for low back pain and right leg radicular pain, receiving a RIGHT L4-L5 transforaminal epidural steroid injection. She received 100% relief from this procedure for two weeks. The patient also notes improved function allowing greater comfort and ability to tolerate dancing, walking, and increased level of activity. She has had return of the pain in the low back and more in her right groin area, at times in the anterior leg as before. The baseline presentation is unchanged since our last visit. Patient reports 8/10 for her pain scale today. Allergies: Allergies Allergen Reactions ??? Sulfa (Sulfonamide Antibiotics) Hives Current Medications: Current outpatient prescriptions Medication Sig Dispense Refill [...] vaginally twice a week. 24 Tab 3 ROS: Patient reports low back pain and right radicular pain symptoms as pertinent positives. CONSTITUTIONAL: Patient does not report fevers, nausea, vomiting. NEURO/EYES: Patient does not report headaches, dizziness, or visual changes. HEME: Patient does not report any known coagulopathies. PULM/CARDIAC: Patient does not report shortness of breath or chest pain. GI/: Patient does not report bowel or bladder incontinence. Physical Exam: Vitals: Patient Vitals in the past 24 hrs: BP Temp Temp src Pulse Resp Height Weight 03/02/11 1225 159/91 mmHg 36.8 ??C (98.2 ??F) Tympanic 92 20 157.5 cm (62) 67.586 kg (149 lb) PE: Patient is an otherwise healthy female. Patient is in NAD. Alert and oriented x3 and appropriate in conversation today. Ambulates without an assist device. Patient has normal gait. Skin: WNL . No signs of infection. No hair vito or abrasions in the lumbar paraspinous region. Lumbar skin clear, dry, intact, nonerythematous at site of procedure. Lumbar paraspinal tenderness with procedure RIGHT. The rest of the physical exam was deferred. There is no change in presentation since last visit. Assessment: Patient is a 50 year old female with a chronic pain syndrome and a primary complaint oflow back pain secondary to the associated diagnoses below. Encounter Diagnoses Name Primary? Lumbar radicular pain ??? Acquired spondylolisthesis ??? Lumbosacral spondylosis without myelopathy Plan: Proceed with transforaminal epidural steroid injection at right L3-L4 and L4-L5. We will divide thesteroid over the two levels to target the groin components as outlined above. Follow up: as needed for repeat procedure. PROCEDURE: The patient gave informed written consent [...] Flouoroscopy was used to visualize the right L3-L4 and L4-L5 neuroforamen. The skin and subcutaneous tissue over this level was anesthetized by infiltration of 2% lidocaine. A 22 guage 3.5 inch spinal needle was inserted under fluoroscopic guidance using coaxial technique. The needle was slowly advanced by posterolateral approach to the superior aspect of the foramen. Fluoroscopic images in the AP and lateral views were taken to confirm final needle tip position in the distal foramen. No parasthesias occurred during needle insertion and aspiration was negative. Contrast dye was injected underlive fluoroscopy and revealed good spread along the Rt L3 and Rt L4 nerve root with no evidence of i ntravascular or intrathecal uptake. After negative aspiration, 40 mg Depo-Medrol and 0.75 ml 0.25% Bupivacaine was injected at each level. The needle was then flushed and withdrawn. The patient tolerated the procedure well, there were no apparent complications, and she was discharged in stable condition. Written and verbal discharge instructions were reviewed with the patient prior to discharge. Attending attestation: The patient was seen and discussed with the resident/fellow. I agree with the findings and plan of care documented in the resident's/fellow's note. In addition, I was present and participated during the entire procedure. MAVIS EDWARDS MD * Brianda Francisco RN - 03/02/2011 1231 EDT [facility] Rooming Note Does patient have a Photography Intern? yes Is patient NPO? (Solids since midnight & liquids for 4 hrs) Blood Thinners: Is patient on Blood Thinners? no If yes, taking? If stopped, who authorized stopping? Related comments: Infections: Any recent infections, fever of illnesses? no If on antibiotics, is it 7-10 days past the date of completion of antibiotics? : (for females of child-bearing age) na Is there a chance current ? Other: documented in this encounter Miscellaneous Notes * Scanned Note-Null - Claudio, Robotic Maintenance Technician - 03/10/2011 1558 EDT documented in this encounter Plan of Treatment Upcoming Encounters Date Type Department Care Team (Late st Contact Info) Description 04/02/2024 10:30 EDT Appointment [facility] Interventional Radiology Unit [address] [place] [address] [phone] 04/02/2024 15:15 EDT Office Visit [facility] Surgical Oncology - [address] [phone] Adolfo Carreno MD [address] [place] [address] [address] [place] [phone] 04/05/2024 9:30 EDT Telemedicine [facility] - [facility] Palliative Care Services [address] [place], [place] 361401 Chichi Woods MD [address] [place] [address] [phone] 04/11/2024 15:00 EDT Telemedicine [facility] Hematology & Oncology - [address] [phone] Alisson Carreon MD [address] [place] [address] 2 [place] [phone] 04/13/2024 13:30 EDT Appointment [facility] Hematology & Oncology - [address] [phone] 04/13/2024 14:00 EDT Appointment [facility] Hematology & Oncology - [address] [address] 04/16/2024 10:00 EST Telemedicine [facility] - [facility] Palliative Care Services [address] [place] [address] [id number] Chichi Woods MD [address] [place] [address], [address] [phone] 04/24/2024 9:00 EST Appointment [facility] Radiology CT Outpatient - [address] [phone] 04/24/2024 11:00 EST Appointment [facility] Breast Imaging - [facility] [address] [phone] 04/27/2024 12:00 EST Appointment [facility] Hematology & Oncology - [address] [phone] 05/02/2024 15:00 EST Telemedicine [facility] Hematology & Oncology - [address] [phone] Alisson Carreon MD [address] [place] [address], [facility], [address] [place] [phone] 05/04/2024 10:15 EST Ancillary Procedure [facility] Cardiology - [address] [place], [place] [phone] 05/04/2024 11:30 EST Appointment [facility] Hematology & Oncology - [address] [phone] 05/04/2024 12:00 EST Appointment [facility] Hematology & Oncology - [address] [phone] 06/12/2024 13:00 EST Appointment [facility] Radiology CT - [address] [phone] documented as of this encounter Visit Diagnoses Diagnosis Lumbar radicular pain Thoracic or lumbosacral neuritis or radiculitis, unspecified Acquired spondylolisthesis Lumbosacral spondylosis without myelopathy documented in this encounter Care Teams Lieutenant Shift Supervisor Relationship Specialty Start Date End Date Linda Blancas MD [facility] [address] [place] [address] PCP - General 01/06/11 documented as of this encounter
--- OUTSIDE RECORDS SUMMARY | 2024-03-20 15:14 | XMS_ITS | Encounter Summary ---
Author Organization [facility] Address [address] [place] [address] Care Team Providers Care Farrowing Worker Name Role Phone Maria Fernanda Red MD Primary Care Provider Unavailab le Encounter Details Date Type Department Care Team (Late st Contact Info) Description 01/11/2008 Before PRISM Converted Visit (Maple) [facility] - Maple conversion [address] [place] [address] Damian Brooke ANP Social History Tobacco Use Types Packs/Day Years Used Date Smoking Tobacco: Never Assessed Sex and Gender Information Value Date Recorded Sex Assigned at Female 05/17/2019 15:31 EST Gender Identity Female 04/26/2019 13:08 EST Sexual Orientation Bisexual 08/26/2022 10 :47 EDT documented as of this encounter Progress Notes * Damian Brooke NP - 03/13/2009 1456 EDT DIVISION OF SURGICAL ONCOLOGY - BREAST CARE CENTER PROGRESS/FOLLOWUP NOTE - 01/11/2008 PROBLEM 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 The patient is here for routine followup. SURGICAL PROCEDURE AND DATE January 30, 2004. Right total mastectomy with bilateral reconstruction implant surgery with Dr. Pavan Batres. SURGICAL PATHOLOGY Tumor: Ductal carcinoma in situ, 2.7-cm, maximal dimension, moderate nuclear grade. Margin Status: Positive at the anterior skin margin. ADJUVANT RADIATION None. ADJUVANT HORMONE THERAPY None. INTERVAL HISTORY Katiereturns for her six-month surveillance. She does regular exams and denies any new areas of focal concern. She has recently had carpal tunnel surgery, and prior to this she was told to stop taking her herbal therapies. She discontinued cava cava, blackcohosh, clonidine, and evening primrose oil, which she was taking to manage her hot flashes. She now has continued on low-dose Effexor, but shehas not restarted any of these medications. She does continue to get hot flashes, but she manages to cope with these. She has gained about 10 pounds, more than she would like. She is 5 feet 2 inches and weighs 142 pounds. She remains very physically active with both exercise and salsa dancing. She hopes to take dietary steps to decrease weight. In general, she feels well with good energy and always an upbeat attitude. CURRENT MEDICATIONS Effexor, Valtrex, red yeast rice, and Vemma liquid. ALLERGIES SULFA. PHARMACY BENEFITS COORDINATOR HISTORY Menarche at age 13. G0. She used oral contraceptives for 15 years and went through an early menopause at age 38. She has a history of low-grade vaginal intraepithelial neoplasia treated in October 2006. FAMILY HISTORY She has a paternal aunt with a history of breast cancer in her early 30s. Her father had bladder cancer and at 65. She has a maternal uncle with bladder cancer at an unknown age. There is no other history of breast or ovarian cancer. SOCIAL HISTORY She is enjoying her work at [employer]. She is going to be competing in two different [employer] competitions this weekend. Update form has been reviewed. OBJECTIVE On physical examination Sendy is a delightful, upbeat, well-appearing, 47-year-old woman in no acute distress. Her skin is warm and dry. Her sclerae are anicteric. She has no cervical, clavicular, oraxillary adenopathy. Her breast exam is done in the sitting and supine positions. She has a reconstructed right breast with saline implant and left breast augmentation with implant. There is no suspicious palpable abnormality appreciated in either breast. There is a faded nipple tattooing of the right breast. Her abdomen is flat, soft, and nontender, with no hepatosplenomegaly. Left breast mammogram done July 2007 showed scattered density with no evidence for malignancy. 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 She has no clinical evidence for recurrence. She will be followed over the next year with six-month clinicalevaluation and then may consider annual visits or future followup through her primary doctor. She will be due for her left breast mammogram in July 2008. She is asked to return here sooner if shedevelops any new changes or problems. Signed by DANIELA Gamez 01/22/2008 11:16 DANIELA Gamez - DANIELA Gamez - KKB Job ID: [id number] Doc ID: [id number] cc: Maria Fernanda Red MD documented in this encounter Plan of Treatment Upcoming Encounters Date Type Department Care Team (Late st Contact Info) Description 04/02/2024 10:30 EDT Appointment [facility] Interventional Radiology Unit [address] [place] [address] 04/02/2024 15:15 EDT Office Visit [facility] Surgical Oncology - [address] [id number] Adolfo Carreno MD [address] [place] [address] [address] [place] [phone] 04/05/2024 9:30 EDT [facility] Palliative Care Services [address] [place] [address] Chichi Woods MD [address] [place] [address] [phone] 04/11/2024 15:00 EDT Telemedicine [facility] Hematology & Oncology [address] 302901 Alisson Carreon MD [address] [place] [address] 2 [place] [phone] 04/13/2024 13:30 EDT Appointment [facility] Hematology & Oncology - [address] [phone] 04/13/2024 14:00 EDT Appointment [facility] Hematology & Oncology - [address] [address] 04/16/2024 10:00 EST [facility] Palliative Care Services [address] [place] [address] [phone] Chichi Woods MD [address] [place] [address], [address] [phone] 04/24/2024 9:00 EST Appointment [facility] Radiology CT Outpatient - [address] [id number] 04/24/2024 11:00 EST Appointment [facility] Breast Imaging - [facility] [address] 830451 04/27/2024 12:00 EST Appointment [facility] Hematology & Oncology - [address] 333111 05/02/2024 15:00 EST Telemedicine [facility] Hematology & Oncology - [address] [phone] Alisson Carreon MD [address] [place] [address], [facility], Level 2 [place] [phone] 05/04/2024 10:15 EST Ancillary Procedure [facility] Cardiology - [address] [place], [place] [phone] 05/04/2024 11:30 EST Appointment [facility] Hematology & Oncology - [address] [phone] 05/04/2024 12:00 EST Appointment [facility] Hematology & Oncology - [address] [address] 06/12/2024 13:00 EST Appointment [facility] Radiology CT - [address] 130041 documented as of this encounter Visit Diagnoses Not on filedocumented in this encounter Care Teams Farrowing Worker Relationship Specialty Start Date End Date Maria Fernanda Red MD PCP - General 12/17/08 08/20/09 documented as of this encounter
--- OUTSIDE RECORDS SUMMARY | 2024-03-20 15:14 | XMS_ITS | Encounter Summary ---
Author Organization [facility] Address [address] [place] [address] Care Team Providers Care Boot And Shoe Laborer Name Role Phone Maria Fernanda Red MD Primary Care Provider Unavailab le Encounter Details Date Type Department Care Team (Latest Contact Info) Description 04/14/2009 20:17 EST - 04/14/2009 20:18 EST Hospital Encounter [facility] - Other [address] [place] [address] Maria Fernanda Red MD Discharge Disposition: Home or Self Care Social [...] Contact Info) Description 04/02/2024 10:30 EDT Appointment [facility] Interventional Radiology Unit [address] [place] [address] [phone] 04/02/2024 15:15 EDT Office Visit [facility] Surgical Oncology - [address] [phone] Adolfo Carreno MD [address] [facility], Level [address] [place] [phone] 04/05/2024 9:30 EDT Telemedicine [facility] Palliative Care Services [address] [place] [address] [phone] Chichi Woods MD [address] [place] [address] [phone] 04/11/2024 15:00 EDT Telemedicine [facility] Hematology & Oncology [address] [phone] Alisson Carreon MD [address] [place] [address], [address] [place] [phone] 04/13/2024 13:30 EDT Appointment [facility] Hematology & Oncology [address] 110771 04/13/2024 14:00 EDT Appointment [facility] Hematology & Oncology [address] 404161 04/16/2024 10:00 EST Telemedicine [facility] Palliative Care Services [address] [place] [address] [phone] Chichi Woods MD [address] [place] [address] [phone] 04/24/2024 9:00 EST Appointment [facility] Radiology CT Outpatient - [address] 548121 04/24/2024 11:00 EST Appointment [facility] Breast Imaging - [address] 857991 04/27/2024 12:00 EST Appointment [facility] Hematology & Oncology [address] 448641 05/02/2024 15:00 EST Telemedicine [facility] Hematology & Oncology [address] [address] Alisson Carreon MD [address] [place] [address], [address] [place] [phone] 05/04/2024 10:15 EST Ancillary Procedure [facility] Cardiology - [address] [place] [address] 05/04/2024 11:30 EST Appointment [facility] Hematology & Oncology [address] 388381 05/04/2024 12:00 EST Appointment [facility] Hematology & Oncology [address] 047841 06/12/2024 13:00 EST Appointment [facility] Radiology CT - [address] [phone] documented as of this encounter Visit Diagnoses Not on filedocumented in this encounter Care Teams Boot And Shoe Laborer Relationship Specialty Start Date End Date Maria Fernanda Red MD PCP - General 12/17/08 08/20/09 documented as of this encounter
--- OUTSIDE RECORDS SUMMARY | 2024-03-20 15:14 | XMS_ITS | Encounter Summary ---
Author Organization [facility] Address [address] [place] [address] Care Team Providers Care Gauge Checker Name Role Phone None, Provider Primary Care Provider Unavailabl e Reason for Visit * Reason Onset Date Comments Results 09/24/2009 call from re pap smear results Encounter Details Date Type Department Care Team (Late st Contact Info) Description 09/24/2009 Telephone [facility] - [facility] [address] [place] [address] Clemencia Wise RN Results (call from re pap smear results) Social History Tobacco Use Types Packs/Day Years Used Date Smoking Tobacco: Never Assessed Sex and Gender Information Value Date Recorded Sex Assigned at Female 05/17/2019 15:31 EST Gender Identity Female 04/26/2019 13:08 EST Sexual Orientation Bisexual 08/26/2022 10 :47 EDT documented as of this encounter Miscellaneous Notes * Telephone Encounter - Clemencia Wise RN - 09/24/2009 5973 EDT Pap smear from 09/12/09 still pending. I called cytopathology who states results should be in by Tuesday09/29/09. Left message for pt to call office Tuesday. * Telephone Encounter - Clemencia Wise RN - 09/24/2009 4206 EDT Call from pt. Do I still need a colpo? It is scheduled for 09/30. documented in this encounter Plan of Treatment Upcoming Encounters Date Type Department Care Team (Late st Contact Info) Description 04/02/2024 10:30 EDT Appointment [facility] Interventional Radiology Unit [address] [place] [address] [phone] 04/02/2024 15:15 EDT Office Visit [facility] Surgical Oncology - [address] 801101 Adolfo Carreno MD [address] [place] [address] [phone] 04/05/2024 9:30 EDT Telemedicine [facility] Palliative Care Services [address] [place] [address] [phone] Chichi Woods MD [address] [place] [address] [phone] 04/11/2024 15:00 EDT Telemedicine [facility] Hematology & Oncology [address] 195581 Alisson Carreon MD [address] [place] [address] [phone] 04/13/2024 13:30 EDT Appointment [facility] Hematology & Oncology [address] 915001 04/13/2024 14:00 EDT Appointment [facility] Hematology & Oncology [address] 103461 04/16/2024 10:00 EST Telemedicine [facility] Palliative Care Services [address] [place] [address] [phone] Chichi Woods MD [address] [place], [place] [address], [place] [phone] 04/24/2024 9:00 EST Appointment [facility] Radiology CT Outpatient - [address] [phone] 04/24/2024 11:00 EST Appointment [facility] Breast Imaging - [facility] [place] [address] [place], [place] 573641 04/27/2024 12:00 EST Appointment [facility] Hematology & Oncology [address] [phone] 05/02/2024 15:00 EST Telemedicine [facility] Hematology & Oncology [address] 914591 Alisson Carreon MD [address] [place] [address], Level 2 [place] [phone] 05/04/2024 10:15 EST Ancillary Procedure [facility] Cardiology [place] [address] 05/04/2024 11:30 EST Appointment [facility] Hematology & Oncology [address] 705761 05/04/2024 12:00 EST Appointment [facility] Hematology & Oncology [address] 420491 06/12/2024 13:00 EST Appointment [facility] Radiology CT - [address] [phone] documented as of this encounter Visit Diagnoses Not on filedocumented in this encounter Care Teams Gauge Checker Relationship Specialty Start Date End Date None, Provider PCP - General 08/21/09 01/05/11 documented as of this encounter
--- OUTSIDE RECORDS SUMMARY | 2024-03-20 15:14 | XMS_ITS | Encounter Summary ---
Author Organization [facility] Address [address] [place] [address] Care Team Providers Care Press Maintainer Name Role Phone None, Provider Primary Care Provider Unavailabl e Reason for Visit * Reason Onset Date Comments Other 04/17/2010 Encounter Details Date Type Department Care Team (Late st Contact Info) Description 04/17/2010 Telephone [facility] [address] [phone] Clemencia Wise, RN Other Social History Tobacco Use Types Packs/Day [...] Telephone Encounter - Clemencia Wise RN - 04/17/2010 1244 EDT Pt calling to ask about where things are with scanning paperwork and email. documented in this encounter Plan of Treatment Upcoming Encounters Date Type Department Care Team (Late st Contact Info) Description 04/02/2024 10:30 EDT Appointment [facility] Interventional Radiology Unit [address] [place] [address] [phone] 04/02/2024 15:15 EDT Office Visit [facility] Surgical Oncology - [address] 267031 Adolfo Carreno MD [address] [place] [address] [phone] 04/05/2024 9:30 EDT Telemedicine [facility] Palliative Care Services [address] [place] [address] [phone] Chichi Woods MD [address] [place] [address] [phone] 04/11/2024 15:00 EDT Telemedicine [facility] Hematology & Oncology - [address] [phone] Alisson Carreon MD [address] [place] [address] [phone] 04/13/2024 13:30 EDT Appointment [facility] Hematology & Oncology - [address] [phone] 04/13/2024 14:00 EDT Appointment [facility] Hematology & Oncology - [address] 371541 04/16/2024 10:00 EST Telemedicine [facility] Palliative Care Services [address] [place] [address] [phone] Chichi Woods MD [address] [place] [address] [phone] 04/24/2024 9:00 EST Appointment [facility] Radiology CT Outpatient - [address] [id number] 04/24/2024 11:00 EST Appointment [facility] Breast Imaging - [facility] 1 [place] [address] 04/27/2024 12:00 EST Appointment [facility] Hematology & Oncology [address] [address] 05/02/2024 15:00 EST Telemedicine [facility] Hematology & Oncology [address] [phone] Alisson Carreon MD [address] [place] [address], Level [address] [place] [phone] 05/04/2024 10:15 EST Ancillary Procedure [facility] Cardiology - [address] [place] [address] 05/04/2024 11:30 EST Appointment [facility] Hematology & Oncology - [address] [address] 05/04/2024 12:00 EST Appointment [facility] Hematology & Oncology [address] [phone] 06/12/2024 13:00 EST Appointment [facility] Radiology CT - [address] [phone] documented as of this encounter Visit Diagnoses Not on filedocumented in this encounter Care Teams Press Maintainer Relationship Specialty Start Date End Date None, Provider PCP - General 08/21/09 01/05/11 documented as of this encounter
--- OUTSIDE RECORDS SUMMARY | 2024-03-20 15:14 | XMS_ITS | Encounter Summary ---
Author Organization [facility] Address [address] [place] [address] Care Team Providers Care Php Mysql Developer Name Role Phone None, Provider Primary Care Provider Unavailabl e Encounter Details Date Type Department Care Team (Late st Contact Info) Description 09/29/2009 Abstract Used for ABSTRACTING Data [phone] None, Provider Social History Tobacco Use Types Packs/Day Years [...] EDT Appointment [facility] Interventional Radiology Unit [address] [place] [address] [phone] 04/02/2024 15:15 EDT Office Visit [facility] Surgical Oncology - [facility] [address] [place] [address] Adolfo Carreno MD 111 [facility], Level 2 [place] [phone] 04/05/2024 9:30 EDT Telemedicine [facility] Palliative Care Services [address] [place] [address] Chichi Woods MD [address] [phone] 04/11/2024 15:00 EDT Telemedicine [facility] Hematology & Oncology - [address] [phone] Alisson Carreon MD [address] [place] [address] [address] [place] [phone] 04/13/2024 13:30 EDT Appointment [facility] Hematology & Oncology [address] [phone] 04/13/2024 14:00 EDT Appointment [facility] Hematology & Oncology [address] [address] 04/16/2024 10:00 EST Telemedicine [facility] Palliative Care Services [address] [place] [address] [phone] Chichi Woods MD [address] [place] [address] [phone] 04/24/2024 9:00 EST Appointment [facility] Radiology CT Outpatient - [address] [id number] 04/24/2024 11:00 EST Appointment [facility] Breast Imaging - [address] 266071 04/27/2024 12:00 EST Appointment [facility] Hematology & Oncology - [address] [phone] 05/02/2024 15:00 EST Telemedicine [facility] Hematology & Oncology - [address] [phone] Alisson Carreon MD [address] [place] [address] 2 [place] [phone] 05/04/2024 10:15 EST Ancillary Procedure [facility] Cardiology [place] [address] 05/04/2024 11:30 EST Appointment [facility] Hematology & Oncology [address] [address] 05/04/2024 12:00 EST Appointment [facility] Hematology & Oncology [address] [address] 06/12/2024 13:00 EST Appointment [facility] Radiology CT [address] [address] documented as of this encounter Visit Diagnoses Not on filedocumented in this encounter Historical Medications * This list may reflect changes made after this encounter. Medication Sig Dispensed Refills Start Date End Date RED YEAST RICE EXTRACT ORAL Take 1,200 mg by mouth daily. 600mg 2x a day IBUPROFEN ORAL Take by mouth as needed. 12/16/2011 FAMOTIDINE/CALCIUM CARB/MAG (PEPCID COMPLETE ORAL) Take by mouth as needed. 08/25/2011 DOXYLAMINE SUCCINATE (UNISOM ORAL) Take by mouth as needed. Takes half a tablet 02/02/2011 01/13/2022 added in this encounter Care Teams Php Mysql Developer Relationship Specialty Start Date End Date None, Provider PCP - General 08/21/09 01/05/11 documented as of this encounter
--- OUTSIDE RECORDS SUMMARY | 2024-03-20 15:14 | XMS_ITS | Encounter Summary ---
Author Organization [facility] Address [address] [place] [address] Care Team Providers Care Hydrochloric Area Supervisor Name Role Phone None, Provider Primary Care Provider Unavailabl e Encounter Details Date Type Department Care Team (Late st Contact Info) Description 08/25/2009 Results Only [facility] OBGYN Services - [address] 540491 Quita Babb PA-C [address] [place] [address] 2 [place] [phone] Social History Tobacco Use Types Packs/Day Years [...] [facility] Interventional Radiology Unit [address] [place] [address] [phone] 04/02/2024 15:15 EDT Office Visit [facility] Surgical Oncology - [address] [phone] Adolfo Carreno MD 111 [facility] 2 [place] [phone] 04/05/2024 9:30 EDT Telemedicine [facility] Palliative Care Services [address] [place] [address] 539161 Chichi Woods MD [address] [place] [address] [phone] 04/11/2024 15:00 EDT Telemedicine [facility] Hematology & Oncology - [address] [phone] Alisson Carreon MD [address] [place] [address] 2 [place] [phone] 04/13/2024 13:30 EDT Appointment [facility] Hematology & Oncology - [address] 912131 04/13/2024 14:00 EDT Appointment [facility] Hematology & Oncology [address] [phone] 04/16/2024 10:00 EST Telemedicine [facility] Palliative Care Services [address] [place] [address] [phone] Chihci Woods MD [address] [place] [address] [phone] 04/24/2024 9:00 EST Appointment [facility] Radiology CT Outpatient - [address] [phone] 04/24/2024 11:00 EST Appointment [facility] Breast Imaging - [address] [phone] 04/27/2024 12:00 EST Appointment [facility] Hematology & Oncology - [address] [phone] 05/02/2024 15:00 EST Telemedicine [facility] Hematology & Oncology [address] [address] Alisson Carreon MD 111 [facility], Level 2 [place] [phone] 05/04/2024 10:15 EST Ancillary Procedure [facility] Cardiology - [address] [place] [address] 05/04/2024 11:30 EST Appointment [facility] Hematology & Oncology [address] [address] 05/04/2024 12:00 EST Appointment [facility] Hematology & Oncology [address] 088881 06/12/2024 13:00 EST Appointment [facility] Radiology CT - [address] [phone] documented as of this encounter Procedures Procedure Name Priority Date/Time Associated Diagnosis Comments IA MAMMO SCREENING DIGITAL 08/26/2009 11:42 EDT documented in this encounter Results * IA MAMMO SCREENING DIGITAL (08/26/2009 11:42 EDT) Anatomical Region Laterality Modality Other 08/26/2009 11:4 2 EDT 08/27/2009 9:46 EDT Narrative 08/27/2009 9:46 EDT Comparison is made to films from 07/19/2008 (left) and films from 07/18/2007 (left) and films from 06/17/2006 (left) and films from 06/14/2006 (left) and films from 06/11/2005 (left) and films from 06/16/2004 and films from 06/10/2004 and films from 04/10/2003. Left Breast Findings: (CAD used to interpret routine digital and implant displaced views): There are scattered fibroglandular densities. A normal-appearing retro-pectoral, saline implant is present. There are no suspicious masses, calcifications or other abnormalities. IMPRESSION: LEFT BREAST - CATEGORY 2, ??BENIGN A normal-appearing retro-pectoral, saline implant. Benign, no evidence of malignancy. Normal interval follow-up is recommended in 12 months. OVERALL ASSESSMENT - BENIGN END OF IMPRESSION The patient will be notified of her/his breast imaging results via a lay letter from Radiology. ??Radiology will contact the patient directly regarding any findings which require additional imaging (Category 0) at this time. I have personally reviewed the images and the above interpretation and agree with the findings. Procedure Note Megan Bray MD / Megan Bray MD / Megan Bray MD - 08/27/2009 Comparison is made to films from 07/19/2008 (left) and films from 07/18/2007 (left) and films from 06/17/2006 (left) and films from 06/14/2006 (left) and films from 06/11/2005 (left) and films from 06/16/2004 and films from 06/10/2004 and films from 04/10/2003. Left Breast Findings: (CAD used to interpret routine digital and implant displaced views): There are scattered fibroglandular densities. A normal-appearing retro-pectoral, saline implant is present. There are no suspicious masses, calcifications or other abnormalities. IMPRESSION: LEFT BREAST - CATEGORY 2, BENIGN A normal-appearing retro-pectoral, saline implant. Benign, no evidence of malignancy. Normal interval follow-up is recommended in 12 months. OVERALL ASSESSMENT - BENIGN END OF IMPRESSION The patient will be notified of her/his breast imaging results via a lay letter from Radiology. Radiology will contact the patient directly regarding any findings which require additional imaging (Category 0) at this time. I have personally reviewed the images and the above interpretation and agree with the findings. Quita Babb PA-C [employer] MAM[employer]GRAPH Y ORDERABLES documented in this encounter Visit Diagnoses Not on filedocumented in this encounter Care Teams Hydrochloric Area Supervisor Relationship Specialty Start Date End Date None, Provider PCP - General 08/21/09 01/05/11 documented as of this encounter
--- OUTSIDE RECORDS SUMMARY | 2024-03-20 15:14 | XMS_ITS | Encounter Summary ---
Author Organization [facility] Address [address] [place] [address] Care Team Providers Care Paper Bag Making Machinist Name Role Phone None, Provider Primary Care Provider Unavailabl e Encounter Details Date Type Department Care Team (Late st Contact Info) Description 09/30/2009 Results Only [facility] OBGYN Services - [address] [address] Mitzi Boateng FNP Social History Tobacco Use Types Packs/Day Years [...] Appointment [facility] Interventional Radiology Unit [address] [place] [address] [phone] 04/02/2024 15:15 EDT Office Visit [facility] Surgical Oncology - [address] [phone] Adolfo Carreno MD 111 [facility], Level 2 [place] [phone] 04/05/2024 9:30 EDT Telemedicine [facility] Palliative Care Services [address] [place] [address] [phone] Chichi Woods MD [address] [place] [address] [phone] 04/11/2024 15:00 EDT Telemedicine [facility] Hematology & Oncology - [address] [phone] Alisson Carreon MD [address] [place] [address], Level 2 [place] [phone] 04/13/2024 13:30 EDT Appointment [facility] Hematology & Oncology [address] [phone] 04/13/2024 14:00 EDT Appointment [facility] Hematology & Oncology [address] [id number] 04/16/2024 10:00 EST Telemedicine [facility] Palliative Care Services [address] [place] [address] [phone] Chichi Woods MD [address] [place] [address] [phone] 04/24/2024 9:00 EST Appointment [facility] Radiology CT Outpatient - [address] [id number] 04/24/2024 11:00 EST Appointment [facility] Breast Imaging - [address] 262011 04/27/2024 12:00 EST Appointment [facility] Hematology & Oncology - [address] [phone] 05/02/2024 15:00 EST Telemedicine [facility] Hematology & Oncology - [address] [address] Alisson Carreon MD 111 [facility] Level 2 [place] [phone] 05/04/2024 10:15 EST Ancillary Procedure [facility] Cardiology - [address] [place], [place] [phone] 05/04/2024 11:30 EST Appointment [facility] Hematology & Oncology [address] [phone] 05/04/2024 12:00 EST Appointment [facility] Hematology & Oncology [address] [id number] 06/12/2024 13:00 EST Appointment [facility] Radiology CT - [address] [phone] documented as of this encounter Procedures Procedure Name Priority Date/Time Associated Diagnosis Comments SURGICAL PATHOLOGY Routine 09/30/2009 0:00 EDT documented in this encounter Results * SURGICAL PATHOLOGY (09/30/2009 0:00 EDT) Pathology Report: SURGICAL PATHOLOGY REPORT ? Reports generated via electronic interface contain original data; ? however they are lacking the format of the original report. ? Caution should be taken when reading/interpreti ng unformatted reports. ? Name: ? SMITH, PARDEEP A ? Accession #: ? [id number] ? : ? 1960 (Age: 49) ??F ? Collect Date: ? 09/30/2009 ? Location: ? [facility] ? Receive Date: ? 09/30/2009 ? Provider: MITZI BOATENG SORTER PRICER ? Copy to: ? Final Pathologic Diagnosis: ? A. ?Endocervix, curettage: ? 1. ?Benign fragments of endocervical mucosa. ? 2. ? Benign fragments of squamous mucosa. ? B. ?Vagina, biopsy: ? 1. ?? Squamous epithelium with no specific histopathologic diagnosis. ? Document reviewed and electronically signed by: ? Vijay Christian MD ? Report ??Date: 10/02/2009 16:45 ? By the signature above, the attending physician certifies that he/she has ? personally conducted a gross and/or microscopic examination of the described ? specimens and rendered or confirmed the above diagnosis. ? Specimen(s) Received: ? A. ??ECC ? B. ??Vagina x2 ? Clinical History: ? ASC-US, LSIL, H/O VAIN II and III, s/p laser 2006 ? Gross Description: ? Received in formalin labelled Pardeep Holley and ECC is 1 cc of ? blood-tinged mucus admixed with scant fragments of red-brown tissue. ??The ? specimen is submitted entirely as (A) following filtration. ? Received in formalin labelled Gwen Holleyhleen and vaginal is a 0.5 x 0.2 x 0.2 cm moura-pink biopsy. ??The specimen is submitted intact as (B). ??(J.D. ? Tessitore)/mpl ? End of Report ? RENÉE CALDERA 09/30/2009 09/30/2009 18: 07 EDT Mitzi Boateng SORTER PRICER PATHOLOGY ORDERABLES [facility] [address] [place] [address] documented in this encounter Visit Diagnoses Not on filedocumented in this encounter Care Teams Paper Bag Making Machinist Relationship Specialty Start Date End Date None, Provider PCP - General 08/21/09 01/05/11 documented as of this encounter
--- OUTSIDE RECORDS SUMMARY | 2024-03-20 15:14 | XMS_ITS | Encounter Summary ---
Author Organization [facility] Address [address] [place] [address] Care Team Providers Care Medical Billing Clerk Name Role Phone Unavailable Primary Care Provider Unavailabl e Encounter Details Date Type Department Care Team (Latest Contact Info) Description 07/19/2008 9:37 EST - 07/19/2008 11:59 EST Hospital Encounter [facility] - Other [address] [place] [phone] Maria Fernanda Red MD Discharge Disposition: Auto Discharge Social History Tobacco Use Types Packs/Day Years Used Date Smoking Tobacco: Never Assessed Sex and Gender Information Value Date Recorded Sex Assigned at Female 05/17/2019 15:31 EST Gender Identity Female 04/26/2019 13:08 EST Sexual Orientation Bisexual 08/26/2022 10 :47 EDT documented as of this encounter Discharge Disposition Disposition Code Departure Means Destination Auto Discharge documented in this encounter Plan of Treatment Upcoming Encounters Date Type Department Care Team (Late st Contact Info) Description 04/02/2024 10:30 EDT Appointment [facility] Interventional Radiology Unit [address] [place] [address] 04/02/2024 15:15 EDT Office Visit [facility] Surgical Oncology - [address] [phone] Adolfo Carreno MD 111 [facility], Level 2 [place] [phone] 04/05/2024 9:30 EDT Telemedicine [facility] Palliative Care Services [address] [place] [address] [phone] Chichi Woods MD [address] [place] [address] [phone] 04/11/2024 15:00 EDT Telemedicine [facility] Hematology & Oncology - [address] [phone] Alisson Carreon MD [address] [place] [address], Level [address] [place] [phone] 04/13/2024 13:30 EDT Appointment [facility] Hematology & Oncology [address] [phone] 04/13/2024 14:00 EDT Appointment [facility] Hematology & Oncology [address] [phone] 04/16/2024 10:00 EST Telemedicine [facility] Palliative Care Services [address] [place] [address] [phone] Chichi Woods MD [address] [place] [address] [phone] 04/24/2024 9:00 EST Appointment [facility] Radiology CT Outpatient - [address] [id number] 04/24/2024 11:00 EST Appointment [facility] Breast Imaging - [address] 198801 04/27/2024 12:00 EST Appointment [facility] Hematology & Oncology - [address] [phone] 05/02/2024 15:00 EST Telemedicine [facility] Hematology & Oncology - [address] [address] Alisson Carreon MD 111 [facility], Level [address] [place] [phone] 05/04/2024 10:15 EST Ancillary Procedure [facility] Cardiology - [address] [place] [address] 05/04/2024 11:30 EST Appointment [facility] Hematology & Oncology - [address] [address] 05/04/2024 12:00 EST Appointment [facility] Hematology & Oncology [address] [phone] 06/12/2024 13:00 EST Appointment [facility] Radiology CT - [address] [phone] documented as of this encounter Procedures Procedure Name Priority Date/Time Associated Diagnosis Comments SD MAMMO SCREENING DIGITAL 07/19/2008 14:57 EST documented in this encounter Results * SD MAMMO SCREENING DIGITAL (07/19/2008 14:57 EST) Anatomical Region Laterality Modality Other 07/19/2008 14:5 7 EST Narrative 10/28/2008 8:31 EDT routine Comparison is made to films from 07/18/2007 (left) and films from 06/17/2006 (left) and films from 06/14/2006 (left) and films from 06/11/2005 (left) and films from 06/16/2004 and films from 06/10/2004 and films from 11/13/2003 and films from 04/10/2003. Left Breast Findings: (CAD used to interpret routine digital and implant displaced views): There are scattered fibroglandular densities. A normal-appearing sub-pectoral, saline implant is present. No significant masses, calcifications or other abnormalities are seen. IMPRESSION: LEFT BREAST - CATEGORY 2 A normal-appearing sub-pectoral, saline implant. Benign, no evidence of malignancy. Normal interval follow-up is recommended in 12 months. OVERALL ASSESSMENT - BENIGN END OF IMPRESSION The patient will be notified of her/his breast imaging results via a lay letter from Radiology. ??Radiology will contact the patient directly regarding any findings which require additional imaging (Category 0) at this time. Procedure Note Roula Dickerson MD - 10/28/2008 routine Comparison is made to films from 07/18/2007 (left) and films from 06/17/2006 (left) and films from 06/14/2006 (left) and films from 06/11/2005 (left) and films from 06/16/2004 and films from 06/10/2004 and films from 11/13/2003 and films from 04/10/2003. Left Breast Findings: (CAD used to interpret routine digital and implant displaced views): There are scattered fibroglandular densities. A normal-appearing sub-pectoral, saline implant is present. No significant masses, calcifications or other abnormalities are seen. IMPRESSION: LEFT BREAST - CATEGORY 2 A normal-appearing sub-pectoral, saline implant. Benign, no [...]
--- OUTSIDE RECORDS SUMMARY | 2024-03-20 15:14 | XMS_ITS | Encounter Summary ---
Author Organization [facility] Address [address] [place] [address] Care Team Providers Care Anesthesia Assistant Name Role Phone None, Provider Primary Care Provider Unavailabl e Reason for Visit * Reason Onset Date Comments Other 09/29/2009 Calling for Pap results Encounter Details Date Type Department Care Team (Late st Contact Info) Description 09/29/2009 Telephone [facility] [address] [place] [address] Kiana Will RN Other (Calling for Pap results) Social History Tobacco Use Types Packs/Day Years Used Date Smoking Tobacco: Never Assessed Sex and Gender Information Value Date Recorded Sex Assigned at Female 05/17/2019 15:31 EST Gender Identity Female 04/26/2019 13:08 EST Sexual Orientation Bisexual 08/26/2022 10 :47 EDT documented as of this encounter Miscellaneous Notes * Telephone Encounter - Kiana Will - 09/29/2009 1631 EDT Patient notified that her Pap Smear returned as ASCUS and that she would need to have colposcopy on09/30/09 per TANK Eagle. * Telephone Encounter - Kiana Will - 09/29/2009 1433 EDT Telephone call received from patient today. Patient requesting Pap Smear results, has pending colposcopy scheduled for 09/30/09. Will consult with TANK Felipe. documented in this encounter Plan of Treatment Upcoming Encounters Date Type Department Care Team (Late st Contact Info) Description 04/02/2024 10:30 EDT Appointment [facility] Interventional Radiology Unit [address] [place] [address] [phone] 04/02/2024 15:15 EDT Office Visit [facility] Surgical Oncology - [address] [phone] Adolfo Carreno MD [address] [place] [address] 2 [place] [phone] 04/05/2024 9:30 EDT Telemedicine [facility] Palliative Care Services [address] [place] [address] [phone] Chichi Woods MD [address] [place] [address] [phone] 04/11/2024 15:00 EDT Telemedicine [facility] Hematology & Oncology [address] 396101 Alisson Carreon MD [address] [place] [address] [phone] 04/13/2024 13:30 EDT Appointment [facility] Hematology & Oncology [address] 569181 04/13/2024 14:00 EDT Appointment [facility] Hematology & Oncology [address] [phone] 04/16/2024 10:00 EST Telemedicine [facility] Palliative Care Services [address] [place] [address] [phone] Chichi Woods MD [address] [place] [address], [place] [address] [place] [phone] 04/24/2024 9:00 EST Appointment [facility] Radiology CT Outpatient - [address] [id number] 04/24/2024 11:00 EST Appointment [facility] Breast Imaging - [address] 659311 04/27/2024 12:00 EST Appointment [facility] Hematology & Oncology - [address] [phone] 05/02/2024 15:00 EST Telemedicine [facility] Hematology & Oncology [address] 532151 Alisson Carreon MD [address] [place] [address], [facility], Level 2 [place] [phone] 05/04/2024 10:15 EST Ancillary Procedure [facility] Cardiology - [place] [address] 05/04/2024 11:30 EST Appointment [facility] Hematology & Oncology [address] [phone] 05/04/2024 12:00 EST Appointment [facility] Hematology & Oncology - [address] 953221 06/12/2024 13:00 EST Appointment [facility] Radiology CT - [address] [phone] documented as of this encounter Visit Diagnoses Not on filedocumented in this encounter Care Teams Anesthesia Assistant Relationship Specialty Start Date End Date None, Provider PCP - General 08/21/09 01/05/11 documented as of this encounter
--- OUTSIDE RECORDS SUMMARY | 2024-03-20 15:14 | XMS_ITS | Encounter Summary ---
Author Organization [facility] Address [address] [place] [address] Care Team Providers Care Machine Room Operator Name Role Phone Unavailable Primary Care Provider Unavailabl e Encounter Details Date Type Department Care Team (Latest Contact Info) Description 11/21/2007 11:43 EDT - 11/21/2007 11:59 EDT Hospital Encounter [facility] Perioperative Services - [address] [phone] Alex Kurtz MD [address] [place] [phone] Discharge Disposition: Home or Self Care Social [...] or Self Care documented in this encounter OR Notes * OR Surgeon - Alex Kurtz MD - 11/21/2007 0000 EDT PROCEDURE REPORT PT TYPE: OPPROC SERVICE DATE: SURGEON: Alex Kurtz MD SAND TESTER: PREOPERATIVE DIAGNOSIS Bilateral carpal tunnel syndrome. POSTOPERATIVE DIAGNOSIS Bilateral carpal tunnel syndrome. PROCEDURE Bilateral endoscopic carpal tunnel release. ANESTHESIA FINDINGS No abnormal contents within the carpal canal. NARRATIVE With the patient under adequate Veronica block anesthesia, the arm was prepped and draped free in the usual sterile fashion. On the right, a small transverse incision was made just ulnar to the palmaris longus with dissection down to the forearm fascia, which was incised. Scope was introduced and ligament sectioned without difficulty. Wound irrigated with bacitracin solution and closed with 5-0 nylon. Sterile dressing applied with volar splint. Attention was directed to the left carpal tunnel. A small transverse incision was made just ulnar to the palmaris longus with dissection down to the forearm fascia, which was incised. Scope was introduced and ligament sectioned without difficulty. Wound irrigated with bacitracin solution and closedwith 5-0 nylon. Sterile dressing appliedwith volar splint. Patient tolerated the procedure well anddischarged home to be followed as an outpatient. Signed by Alex Kurtz MD 11/28/2007 09:40 Alex Kurtz MD D: - Alex Kurtz MD A - JAW Job ID: [id number] Document ID: [id number] cc: MD Maria Fernanda Villalba MD documented in this encounter Plan of Treatment Upcoming Encounters Date Type Department Care Team (Late st Contact Info) Description 04/02/2024 10:30 EDT Appointment [facility] Interventional Radiology Unit [address] [place] [address] [phone] 04/02/2024 15:15 EDT Office Visit [facility] Surgical Oncology - [address] [phone] Adolfo Carreno MD 111 [facility], Level 2 [place] [phone] 04/05/2024 9:30 EDT Telemedicine [facility] Palliative Care Services [address] [place] [address] [phone] Chichi Woods MD [address] [facility], [address] [phone] 04/11/2024 15:00 EDT Telemedicine [facility] Hematology & Oncology - [address] [phone] Alisson Carreon MD [address] [place] [address] 2 [place] [phone] 04/13/2024 13:30 EDT Appointment [facility] Hematology & Oncology - [address] [phone] 04/13/2024 14:00 EDT Appointment [facility] Hematology & Oncology [address] [phone] 04/16/2024 10:[address] [facility] Palliative Care Services [address] [place] [address] Chichi Woods MD [address] [place] [address] [phone] 04/24/2024 9:00 EST Appointment [facility] Radiology CT Outpatient - [address] [id number] 04/24/2024 11:00 EST Appointment [facility] Breast Imaging - [address] [phone] 04/27/2024 12:00 EST Appointment [facility] Hematology & Oncology - [address] [phone] 05/02/2024 15:00 EST Telemedicine [facility] Hematology & Oncology [address] 478331 Alisson Carreon MD [address] [place] [address], [facility] 2 [place] [phone] 05/04/2024 10:15 EST Ancillary Procedure [facility] Cardiology - [address] [place], [place] [phone] 05/04/2024 11:30 EST Appointment [facility] Hematology & Oncology - [address] [phone] 05/04/2024 12:00 EST Appointment [facility] Hematology & Oncology [address] [phone] 06/12/2024 13:00 EST Appointment [facility] Radiology CT - [address] [phone] documented as of this encounter Visit Diagnoses Not on filedocumented in this encounter
--- OUTSIDE RECORDS SUMMARY | 2024-03-20 15:14 | XMS_ITS | Encounter Summary ---
Author Organization [facility] Address [address] [place] [address] Care Team Providers Care Forensic Locksmith Name Role Phone Maria Fernanda Red MD Primary Care Provider Mary le Encounter Details Date Type Department Care Team (Late st Contact Info) Description 05/27/2008 Before PRISM Converted Visit (Maple) [facility] - Maple conversion [address] [place] [address] Pavan Batres MD Social History Tobacco Use Types Packs/Day Years Used Date Smoking Tobacco: Never Assessed Sex and Gender Information Value Date Recorded Sex Assigned at Female 05/17/2019 15:31 EST Gender Identity Female 04/26/2019 13:08 EST Sexual Orientation Bisexual 08/26/2022 10 :47 EDT documented as of this encounter Progress Notes * Pavan Batres MD - 01/02/2009 9403 EDT DIVISION OF PLASTIC SURGERY PROGRESS/FOLLOWUP NOTE - 05/27/2008 PROBLEM Status post right nipple reconstruction, status post right total mastectomy and immediate post-mastectomy submuscular medical coding auditor/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 PROVIDER REQUESTING CONSULTATION Abby Kearney MD HISTORY The patient returned to the clinic and indicated that, ???everything is really going well. I just wanted you to look at a couple scars that I have developed since I last saw you and also look at the right nipple reconstruction area because I think I may need to have more tattooing.?? EXAMINATION The patient was seen on examination in conjunction with Nay Khan RN. On examination of the patientchest, the nipple reconstruction, which at one time had good projection, now is somewhat flattened. The patient has lost pigmentation at the tattoo site and would be a candidate for further tattooing. The implant on theright is soft (Barrios class 1) and there were no masses or tenderness to palpation of the breast. On the left side, the patients implant was soft (Barrios class 1) and there were no masses nor tenderness in the breast tissue. The patient had an oblique scar on the lateral aspect of the right knee region which was well-healed without any evidence of hypertophic or keloid scar formation or pain to palpation. The scar was just slightly darker then the surrounding skin. On the patients left posterior shoulder region, she had two vertical scars (at the site of lipoma removals) and these were well-healed with similar characteristics to that on her knee. MEDICAL DECISION MAKING The patient would be a candidate for retattooing of the nipple areolar complex and she wanted to proceed with this. I do not believe that any of the scars would need revision, etc. I discussed these with her and she indicated that she understood this. PLAN As noted above. Signed by Pavan Batres MD 06/04/2008 18:39 Pavan Batres MD - Pavan Batres MD A - CHR Job ID: [id number] Document ID: [id number] cc: MD Maria Fernanda Hackett MD documented in this encounter Plan of Treatment Upcoming Encounters Date Type Department Care Team (Late st Contact Info) Description 04/02/2024 10:30 EDT Appointment [facility] Interventional Radiology Unit [address] [place] [address] 04/02/2024 15:15 EDT Office Visit [facility] Surgical Oncology - Main [address] [address] Adolfo Carreno MD [address] [place] [address], [facility] [address] [place] [phone] 04/05/2024 9:30 EDT Telemedicine [facility] Palliative Care Services [address] [place] [address] [phone] Chichi Woods MD [address] [place] [address] [phone] 04/11/2024 15:00 EDT Telemedicine [facility] Hematology & Oncology - [address] 103911 Alisson Carreon MD [address] [place] [address] 2 [place] [phone] 04/13/2024 13:30 EDT Appointment [facility] Hematology & Oncology - [address] [phone] 04/13/2024 14:00 EDT Appointment [facility] Hematology & Oncology - [address] [phone] 04/16/2024 10:00 EST Telemedicine [facility] - [facility] Palliative Care Services [address] [place] [address] 679161 Chichi Woods MD [address] [place] [address] [phone] 04/24/2024 9:00 EST Appointment [facility] Radiology CT Outpatient - [address] [phone] 04/24/2024 11:00 EST Appointment [facility] Breast Imaging - [address] [phone] 04/27/2024 12:00 EST Appointment [facility] Hematology & Oncology [address] [phone] 05/02/2024 15:00 EST Telemedicine [facility] Hematology & Oncology [address] 146401 Alisson Carreon MD [address] [place] [address], Level [address] [place] [phone] 05/04/2024 10:15 EST Ancillary Procedure [facility] Cardiology - [place] [address] 05/04/2024 11:30 EST Appointment [facility] Hematology & Oncology [address] [phone] 05/04/2024 12:00 EST Appointment [facility] Hematology & Oncology [address] [id number] 06/12/2024 13:00 EST Appointment [facility] Radiology CT - [address] [phone] documented as of this encounter Visit Diagnoses Not on filedocumented in this encounter Care Teams Forensic Locksmith Relationship Specialty Start Date End Date Maria Fernanda Red MD PCP - General 12/17/08 08/20/09 documented as of this encounter
--- OUTSIDE RECORDS SUMMARY | 2024-03-20 15:14 | XMS_ITS | Encounter Summary ---
Author Organization [facility] Address [address] [place] [address] Care Team Providers Care Salesperson Burial Plots Name Role Phone None, Provider Primary Care Provider Unavailabl e Reason for Visit * Reason Onset Date Comments Medications Refill 08/27/2009 effexor,valtr ex Encounter Details Date Type Department Care Team (Late st Contact Info) Description 08/27/2009 Telephone [facility] [address] [place] [address] Clemencia Wise, RN Medications Refill (effexor,valtrex) Social History Tobacco Use Types Packs/Day Years Used Date Smoking Tobacco: Never Assessed Sex and Gender Information Value Date Recorded Sex Assigned at Female 05/17/2019 15:31 EST Gender Identity Female 04/26/2019 13:08 EST Sexual Orientation Bisexual 08/26/2022 10 :47 EDT documented as of this encounter Miscellaneous Notes * Telephone Encounter - Clemencia Wise RN - 08/27/2009 3256 EDT Call from pt. She only has 5 days left of medication and uses [facility]. Pt has appt 09/20 with Jorge Babb. I called in Valtrex 500mg 1 po qd #90 3 refills, effexor XR 75mg 1 po qd #90tabs 3 refills to [facility] at . Pt # is [phone]. documented in this encounter Plan of Treatment Upcoming Encounters Date Type Department Care Team (Late st Contact Info) Description 04/02/2024 10:30 EDT Appointment [facility] Interventional Radiology Unit [address] [place] [address] [phone] 04/02/2024 15:15 EDT Office Visit [facility] Surgical Oncology - [address] 490231 Adolfo Carreno MD [address] [place] [address] [phone] 04/05/2024 9:30 EDT Telemedicine [facility] Palliative Care Services [address] [place] [address] [phone] Chichi Woods MD [address] [place] [address] [phone] 04/11/2024 15:00 EDT Telemedicine [facility] Hematology & Oncology [address] [phone] Alisson Carreon MD [address] [place] [address] [phone] 04/13/2024 13:30 EDT Appointment [facility] Hematology & Oncology [address] [phone] 04/13/2024 14:00 EDT Appointment [facility] Hematology & Oncology [address] [phone] 04/16/2024 10:00 EST Telemedicine [facility] Palliative Care Services [address] [place] [address] [phone] Chichi Woods MD [address] [place] [address] [phone] 04/24/2024 9:00 EST Appointment [facility] Radiology CT Outpatient - [address] [address] 04/24/2024 11:00 EST Appointment [facility] Breast Imaging - [facility] [place] [address] [place] [address] 04/27/2024 12:00 EST Appointment [facility] Hematology & Oncology - [address] [address] 05/02/2024 15:00 EST Telemedicine [facility] Hematology & Oncology [address] [phone] Alisson Carreon MD [address] [place] [address], Level [address] [place] [phone] 05/04/2024 10:15 EST Ancillary Procedure [facility] Cardiology [place] [address] 05/04/2024 11:30 EST Appointment [facility] Hematology & Oncology - [address] [address] 05/04/2024 12:00 EST Appointment [facility] Hematology & Oncology [address] [phone] 06/12/2024 13:00 EST Appointment [facility] Radiology CT - [address] [phone] documented as of this encounter Visit Diagnoses Not on filedocumented in this encounter Care Teams Salesperson Burial Plots Relationship Specialty Start Date End Date None, Provider PCP - General 08/21/09 01/05/11 documented as of this encounter
--- OUTSIDE RECORDS SUMMARY | 2024-03-20 15:14 | XMS_ITS | Encounter Summary ---
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 Prior cervical/vaginal disease: LSIL x 3 on 07/2007, 07/2008 and 02/2009.. 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 Procedure Details The risks and benefits of the procedure and written informed consent obtained. Speculum placed in vagina and excellent visualization of cervix achieved. Vagina and cervix soaked with acetic acid solution. Cervix and vagina painted with Lugol's solution. Findings: small areas of poor uptake of lugols solution on right and left lateral vaginal degroot Image: Cervix: 360 degrees of columnar epithelium seen: SCJ not visible as stenotic cervical os. No lesions visible on cervix Vaginal inspection: Colposcopy performed Vulvar colposcopy: No visible lesions. Clinical Impressions: Colposcopy: VAIN: no. Cervix: benign. Specimens: Biopsy Vagina x 2 on right and left lateral vaginal degroot and ECC yes. Final Pathologic Diagnosis: A. Endocervix, curettage: 1. Benign fragments of endocervical mucosa. 2. Benign fragments of squamous mucosa. B. Vagina, biopsy: 1. Squamous epithelium with no specific histopathologic diagnosis. Document reviewed and electronically signed by: Vijay Christian MD Report Date: 10/02/2009 16:45 Complications: None. Plan: Will base further treatment on Pathology findings Pap and HPV test in 1 year. Re-colpo if abnormal still at that time documented in this encounter Miscellaneous Notes * Scanned Note-Null - Inpatient, Physician - 10/09/2009 1132 EDT documented in this encounter Plan of Treatment Upcoming Encounters Date Type Department Care Team (Late st Contact Info) Description 04/02/2024 10:30 EDT Appointment [facility] Interventional Radiology Unit [address] [place] [address] 04/02/2024 15:15 EDT Office Visit [facility] Surgical Oncology - [address] [phone] Adolfo Carreno MD [address] [place] [address] [address] [place] [phone] 04/05/2024 9:30 EDT Telemedicine [facility] Palliative Care Services [address] [place] [address] [phone] Chichi Woods MD [address] [place] [address] [phone] 04/11/2024 15:00 EDT Telemedicine [facility] Hematology & Oncology - [address] [phone] Alisson Carreon MD [address] [place] [address] [address] [place] [phone] 04/13/2024 13:30 EDT Appointment [facility] Hematology & Oncology - [address] [phone] 04/13/2024 14:00 EDT Appointment [facility] Hematology & Oncology - [address] [phone] 04/16/2024 10:00 EST Telemedicine [facility] Palliative Care Services [address] [place] [address] Chichi Woods MD [address] [place] [address] [phone] 04/24/2024 9:00 EST Appointment [facility] Radiology CT Outpatient - [address] [phone] 04/24/2024 11:00 EST Appointment [facility] Breast Imaging - [address] [phone] 04/27/2024 12:00 EST Appointment [facility] Hematology & Oncology [address] [address] 05/02/2024 15:00 EST Telemedicine [facility] Hematology & Oncology [address] [phone] Alisson Carreon MD [address] [place] [address], [facility], Level [address] [place] [phone] 05/04/2024 10:15 EST Ancillary Procedure [facility] Cardiology - [place] [address] 05/04/2024 11:30 EST Appointment [facility] Hematology & Oncology [address] [phone] 05/04/2024 12:00 EST Appointment [facility] Hematology & Oncology [address] [phone] 06/12/2024 13:00 EST Appointment [facility] Radiology CT - [address] [phone] Scheduled Orders Name Type Priority Associated Diagnoses Orde r Schedule SURGICAL PATHOLOGY- ORDER ONLY Pathology Routine LSIL (low grade squamous intraepithelial lesion) on Pap smear Ordered: 09/30/2009 documented as of this encounter Visit Diagnoses Diagnosis LSIL (low grade squamous intraepithelial lesion) on Pap smear- Primary Other nonspecific abnormal finding documented in this encounter Care Teams Operations Supervisor Chemical Cleaning Relationship Specialty Start Date End Date None, Provider PCP - General 08/21/09 01/05/11 documented as of this encounter
--- OUTSIDE RECORDS SUMMARY | 2024-03-20 15:14 | XMS_ITS | Encounter Summary ---
Author Organization [facility] Address [address] [place] [address] Care Team Providers Care Search Lead Name Role Phone Unavailable Primary Care Provider Unavailabl e Encounter Details Date Type Department Care Team (Latest Contact Info) Description 12/12/2008 15:09 EDT - 12/12/2008 15:10 EDT Hospital Encounter [facility] - Other [address] [place] [address] Maria Fernanda Red MD Discharge Disposition: Home [...] [facility] [address], [place] 211001 04/02/2024 15:15 EDT Office Visit [facility] Surgical Oncology - [address] [phone] Adolfo Carreno MD [address] [facility], Level [address] [place] [phone] 04/05/2024 9:30 EDT Telemedicine [facility] Palliative Care Services [address] [place] [address] [phone] Chichi Woods MD [address] [place] [address] [phone] 04/11/2024 15:00 EDT Telemedicine [facility] Hematology & Oncology - [address] [phone] Alisson Carreon MD [address] [place] [address], Level [address] [place] [phone] 04/13/2024 13:30 EDT Appointment [facility] Hematology & Oncology [address] [phone] 04/13/2024 14:00 EDT Appointment [facility] Hematology & Oncology [address] [phone] 04/16/2024 10:00 EST Telemedicine [facility] Palliative Care Services [address] [place] [address] [phone] Chichi Woods MD [address] [place] [address] [phone] 04/24/2024 9:00 EST Appointment [facility] Radiology CT Outpatient - [address] [address] 04/24/2024 11:00 EST Appointment [facility] Breast Imaging - [address] 515781 04/27/2024 12:00 EST Appointment [facility] Hematology & Oncology - [address] [phone] 05/02/2024 15:00 EST Telemedicine [facility] Hematology & Oncology [address] [address] Alisson Carreon MD 111 [facility], Level [address] [place] [phone] 05/04/2024 10:15 EST Ancillary Procedure [facility] Cardiology - [address] [place] [address] 05/04/2024 11:30 EST Appointment [facility] Hematology & Oncology [address] [phone] 05/04/2024 12:00 EST Appointment [facility] Hematology & Oncology [address] [phone] 06/12/2024 13:00 EST Appointment [facility] Radiology CT - [address] [phone] documented as of this encounter Procedures Procedure Name Priority Date/Time Associated Diagnosis Comments HOLD PURPLE TOP Routine 04/14/2009 8:35 EST ALT Routine 04/14/2009 8:35 EST LIPID PROFILE (INCLUDES CHOLESTEROL, TRIGLYCERIDES, HDL, LDL) Routine 04/14/2009 8:35 EST HPV DETECTION, HIGH RISK TYPES Routine 02/28/2009 13:51 EDT CYTOPATHOLOGY Routine 02/28/2009 0:00 EDT documented in this encounter Results * LIPID PROFILE (INCLUDES CHOLESTEROL, TRIGLYCERIDES, HDL, LDL) (04/14/2009 8:35 EST) Cholesterol 207 mg/dl [facility] Comment: Desirable:<200 Borderline High:200-239 High:>rf=736 Triglycerides 141 35 - 160 mg/dl [facility] HDL 57 mg/dl [facility] Comment: Low:<40 High(Desirable):>or=60 LDL, Calculated 122 mg/dl [facility] Comment: Optimal:<100 Above optimal:100-129 Borderline High:130-159 High:160-189 Very High:>bu=845 Chol/HDL Ratio 3.6 [facility] Fasting? Yes [facility] 04/14/2009 8:35 EST 04/14/2009 21:14 EST Maria Fernanda Red MD CHEMISTRY & BLOOD GA S ORDERABLES Performing Organization Address [facility] de Phone Number [facility] [address] [place] [address] * HOLD PURPLE TOP (04/14/2009 8:35 EST) Hold Purple Top EDTA for hematology will be discarded after 48 hours, differential not available after 12 hours. [facility] 04/14/2009 8:35 EST 04/14/2009 21:14 EST Maria Fernanda Red MD LAB INFO SERVICE AND SUPPORT & PHONE RESULT Performing Organization Address [facility] de Phone Number [facility] [address] [place] [address] * ALT (04/14/2009 8:35 EST) Pathologist [facility] ALT 37 9 - 52 U/L [facility] 04/14/2009 8:35 EST 04/14/2009 21:14 EST Maria Fernanda Red MD CHEMISTRY & BLOOD GA S ORDERABLES Performing Organization Address [facility] de Phone Number [facility] [address] [place] [address] * HUMAN PAPILLOMA VIRUS DNA TEST (02/28/2009 13:51 EDT) Specimen Description Cervix, ThinPrep vial [facility] Result Negative for HPV types 16, 18, 31, 33, 35, 39, 45, 51, 52, 56, 58, 59, and 68. [facility] Report Status Final 03/13/2009 [facility] 02/28/2009 13:5 1 EDT 03/11/2009 13:51 EDT Quita Babb PA-C MICROBIOLOGY - GENERAL ORDERABLES [facility] [address] [place] [address] * CYTOPATHOLOGY (02/28/2009 0:00 EDT) Pathology Report: CYTOPATHOLOGY REPORT ? Reports generated via electronic interface contain original data; ? however they are lacking the format of the original report. ? Caution should be taken when reading/interpreti ng unformatted reports. ? Name: ? SUNSHINE SMITH ? Accession #: ? [id number] ? : ? 1960 (Age: 48) ??F ?Collect Date: ? 02/28/2009 ? Location: ? [facility] ? Receive Date: ? 03/03/2009 ? Provider: ?QUITA B WILMER PA ? Copy to: ? Specimen/Source: ?Pap Test, Cervix/Endocervix, ThinPrep Imaging System ? with manual evaluation ? Last Menstrual Period: ? Previous Gynecologic Pathology: ? LSIL ? Other: ? HPVDX - HPV testing requested regardless of diagnosis on current ThinPrep Pap ?? test. ? SPECIMEN ADEQUACY ? Satisfactory for Evaluation ? - transformation zone component present ? GENERAL CATEGORIZATION ? Epithelial Cell Abnormality ? INTERPRETATION ? Squamous Cell Abnormality - Low grade squamous intraepithelial lesion ? (LSIL). ? EDUCATIONAL NOTES/RECOMMENDATI ONS ? [facility] recommends following the 2006 Consensus Guidelines for the Management of Women with Abnormal Cervical Cancer Screening Tests (JLGTD, ? 2007;114):201-222 ). ??Consensus guidelines are available online at ? www.ASCCP.org. ? Document reviewed and electronically signed by: ? Marie Blood MD ? Report Date: ??03/10/2009 15:46 ? End of Report ? [facility] 02/28/2009 03/03/2009 Quita Babb PA-C PATHOLOGY JAIMEE ACOSTA [facility] [address] [place] [address] documented in this encounter Visit Diagnoses Not on filedocumented in this encounter
--- OUTSIDE RECORDS SUMMARY | 2024-03-20 15:14 | XMS_ITS | Encounter Summary ---
Author Organization [facility] Address [address] [place] [address] Care Team Providers Care Women'S Studies Lecturer Name Role Phone None, Provider Primary Care Provider Unavailabl e Encounter Details Date Type Department Care Team (Late st Contact Info) Description 08/26/2009 11:07 EDT - 08/26/2009 23:59 EDT Hospital Encounter [address] [address] Quita Babb PA-C 111 [facility], [facility] 2 [place] [phone] Discharge Disposition: Auto Discharge Social History Tobacco [...] [facility] Interventional Radiology Unit [address] [place], [place] 082921 04/02/2024 15:15 EDT Office Visit [facility] Surgical Oncology - [address] [address] Adolfo Carreno MD [address] [place] [address] 2 [place] [phone] 04/05/2024 9:30 EDT Telemedicine [facility] Palliative Care Services [address] [place] [address] [phone] Chichi Woods MD [address] [place] [address] [phone] 04/11/2024 15:00 EDT Telemedicine [facility] Hematology & Oncology - [address] 137301 Alisson Carreon MD [address] [place] [address] 2 [place] [phone] 04/13/2024 13:30 EDT Appointment [facility] Hematology & Oncology - [address] [phone] 04/13/2024 14:00 EDT Appointment [facility] Hematology & Oncology - [address] 424281 04/16/2024 10:00 EST Telemedicine [facility] - [facility] Palliative Care Services [address] [place] [address] Chichi Woods MD [address] [place] [address] [phone] 04/24/2024 9:00 EST Appointment [facility] Radiology CT Outpatient - [address] 427121 04/24/2024 11:00 EST Appointment [facility] Breast Imaging - [address] 730981 04/27/2024 12:00 EST Appointment [facility] Hematology & Oncology [address] [id number] 05/02/2024 15:00 EST Telemedicine [facility] Hematology & Oncology [address] 481081 Alisson Carreon MD [address] [place] [address], Level 2 [place] [phone] 05/04/2024 10:15 EST Ancillary Procedure [facility] Cardiology - [place] [address] [place] [address] 05/04/2024 11:30 EST Appointment [facility] Hematology & Oncology [address] 454181 05/04/2024 12:00 EST Appointment [facility] Hematology & Oncology [address] 518271 06/12/2024 13:00 EST Appointment [facility] Radiology CT - [address] 032111 documented as of this encounter Visit Diagnoses Not on filedocumented in this encounter Care Teams Women'S Studies Lecturer Relationship Specialty Start Date End Date None, Provider PCP - General 08/21/09 01/05/11 documented as of this encounter
--- OUTSIDE RECORDS SUMMARY | 2024-03-20 15:14 | XMS_ITS | Encounter Summary ---
Author Organization [facility] Address [address] [place] [address] Care Team Providers Care Equipment Hire Manager Name Role Phone Unavailable Primary Care Provider Unavailabl e Encounter Details Date Type Department Care Team (Late st Contact Info) Description 05/27/2008 8:12 EST Hospital Encounter [facility] - Maple conversion [address] [place] [address] Pavan Batres MD Social History Tobacco Use Types Packs/Day Years Used Date Smoking Tobacco: Never Passive Smoke Exposure: Never Smokeless Tobacco: Never Alcohol Use Standard Drinks/Week Comments Not Currently 1 (1 standard drink = 0.6 oz pur e alcohol) [facility] Utilities Answer Date Recorded In the [...] 10:30 EDT documented as of this encounter Plan of Treatment Upcoming Encounters Date Type Department Care Team (Late st Contact Info) Description 04/02/2024 10:30 EDT Appointment [facility] Interventional Radiology Unit [address] [place] [address] [phone] 04/02/2024 15:15 EDT Office Visit [facility] Surgical Oncology - [facility] [address] [place], [place] [phone] Adolfo Carreno MD 111 [facility], Level 2 [place] [phone] 04/05/2024 9:30 EDT Telemedicine [facility] Palliative Care Services [address] [place], [place] [phone] Chichi Woods MD 111 [facility] [address] [place] [phone] 04/11/2024 15:00 EDT Telemedicine [facility] Hematology & Oncology - [address] [phone] Alisson Carreon MD [address] [place] [address], [facility] 2 [place] [phone] 04/13/2024 13:30 EDT Appointment [facility] Hematology & Oncology - [address] [phone] 04/13/2024 14:00 EDT Appointment [facility] Hematology & Oncology - [address] [address] 04/16/2024 10:00 EST Telemedicine [facility] - [facility] Palliative Care Services [address] [place] [address] [phone] Chichi Woods MD [address] [place] [address], [address] [phone] 04/24/2024 9:00 EST Appointment [facility] Radiology CT Outpatient - [address] [phone] 04/24/2024 11:00 EST Appointment [facility] Breast Imaging - [address] 354021 04/27/2024 12:00 EST Appointment [facility] Hematology & Oncology - [address] 560721 05/02/2024 15:00 EST Telemedicine [facility] Hematology & Oncology - [address] [phone] Alisson Carreon MD [address] [place] [address], [facility] 2 [place] [phone] 05/04/2024 10:15 EST Ancillary Procedure [facility] Cardiology - [address] [place] [address] 05/04/2024 11:30 EST Appointment [facility] Hematology & Oncology [address] 136221 05/04/2024 12:00 EST Appointment [address] [phone] 06/12/2024 13:00 EST Appointment [facility] Radiology CT [address] 618761 documented as of this encounter Procedures Procedure Name Priority Date/Time Associated Diagnosis Comments CYTOPATHOLOGY Routine 07/15/2008 0:00 EST documented in this encounter Results * CYTOPATHOLOGY (07/15/2008 0:00 EST) Pathology Report: CYTOPATHOLOGY REPORT ? Reports generated via electronic interface contain original data; ? however they are lacking the format of the original report. ? Caution should be taken when reading/interpreti ng unformatted reports. ? Name: ? SUNSHINE SMITH ? Accession #: ? [id number] ? : ? 1960 (Age: 47) ??F ?Collect Date: ? 07/15/2008 ? Location: ? [facility] ? Receive Date: ? 07/16/2008 ? Provider: ?QUITA B WILMER PA ? Copy to: ? Specimen/Source: ?Pap Test, Cervix/Endocervix, ThinPrep Imaging System ? with manual evaluation ? Last Menstrual Period: ? 2000 ? Hormonal/Contracep tive Status: ? Yes: Vagifem ? Previous Gynecologic Pathology: ? LSIL: H/o ? Other: ? HPVA - HPV testing requested if ASC-US on the current ThinPrep Pap test. ? SPECIMEN ADEQUACY ? Satisfactory for Evaluation ? - transformation zone component present ? GENERAL CATEGORIZATION ? Negative for Intraepithelial Lesion or Malignancy ? INTERPRETATION ? Reactive cellular changes associated with inflammation present (includes ?? repair). ? COMMENT ? Fresh blood noted. ? Document reviewed and electronically signed by: ? ALTHEA LANCASTER MD [facility] ? Report Date: ??07/24/2008 17:35 ? End of Report ? RENÉE CALDERA 07/15/2008 07/16/2008 Quita Babb PA-C PATHOLOGY JAIMEE ACOSTA Performing Organization Address City/State/[facility] Co de Phone Number RENÉE CALDERA [address] [place] [address] documented in this encounter Visit Diagnoses Not on filedocumented in this encounter Additional Health Concerns Infection Onset Date Last Indicated Resolved Time R/O COVID-19 12/12/2023 12/12/2023 12/12/2023 15:3 5 EDT R/O COVID-19 01/08/2024 01/08/2024 01/08/2024 18:2 6 EDT R/O COVID-19 01/16/2024 01/16/2024 01/16/2024 17:5 0 EDT documented as of this encounter
--- OUTSIDE RECORDS SUMMARY | 2024-03-20 15:14 | XMS_ITS | Encounter Summary ---
Author Organization [facility] Address [address] [place] [address] Care Team Providers Care Apparel Manager Name Role Phone Maria Fernanda Red MD Primary Care Provider Unavailab le Encounter Details Date Type Department Care Team (Late st Contact Info) Description 03/11/2009 Abstract [facility] Obstetrics and Gynecology - [address] [address] Maria Fernanda Red MD LGSIL on Pap Smear Social History Tobacco Use Types Packs/Day Years [...] EDT Appointment [facility] Interventional Radiology Unit [address] [place] [address] 04/02/2024 15:15 EDT Office Visit [facility] Surgical Oncology - [address] 329021 Adolfo Carreno MD 111 [facility], Level 2 [place] [phone] 04/05/2024 9:30 EDT Telemedicine [facility] Palliative Care Services [address] [place] [address] 448361 Chichi Woods MD [address] [place] [phone] 04/11/2024 15:00 EDT Telemedicine [email or web address] Hematology & Oncology [address] 190841 Alisson Carreon MD [address] [place] [address], Level [address] [place] [phone] 04/13/2024 13:30 EDT Appointment [email or web address] Hematology & Oncology [address] 491301 04/13/2024 14:00 EDT Appointment [email or web address] Hematology & Oncology [address] 233821 04/16/2024 10:00 EST Telemedicine [facility] - [facility] Palliative Care Services [address] [place] [address] [phone] Chichi Woods MD [address] [place] [phone] 04/24/2024 9:00 EST Appointment [facility] Radiology CT Outpatient - [address] 624771 04/24/2024 11:00 EST Appointment [facility] Breast Imaging - [address] 083841 04/27/2024 12:00 EST Appointment [email or web address] Hematology & Oncology - [address] [phone] 05/02/2024 15:00 EST Telemedicine [email or web address] Hematology & Oncology - [address] [phone] Alisson Carreon MD 111 [facility], Level [address] [place] [phone] 05/04/2024 10:15 EST Ancillary Procedure [facility] Cardiology - [address] [place] [address] 05/04/2024 11:30 EST Appointment [email or web address] Hematology & Oncology - [address] [phone] 05/04/2024 12:00 EST Appointment [email or web address] Hematology & Oncology - [address] [phone] 06/12/2024 13:00 EST Appointment [facility] Radiology CT - [address] [phone] documented as of this encounter Visit Diagnoses Diagnosis Papanicolaou smear of cervix with low grade squamous intraepithelial lesion (LGSIL) documented in this encounter Care Teams Apparel Manager Relationship Specialty Start Date End Date Maria Fernanda Red MD PCP - General 12/17/08 08/20/09 documented as of this encounter
--- OUTSIDE RECORDS SUMMARY | 2024-03-20 15:14 | XMS_ITS | Encounter Summary ---
Author Organization [facility] Address [address] [place] [address] Care Team Providers Care Water Project Manager Name Role Phone None, Provider Primary Care Provider Unavailabl e Encounter Details Date Type Department Care Team (Late st Contact Info) Description 01/29/2010 Results Only [facility] Surgical Oncology [address] 830751 Damian Brooke ANP Social History Tobacco Use [facility] [address] [place] [address] [phone] 04/02/2024 15:15 EDT Office Visit [facility] Surgical Oncology [address] 247011 Adolfo Carreno MD 111 [facility], Level 2 [place] [phone] 04/05/2024 9:30 EDT Telemedicine [facility] Palliative Care Services [address] [place] [address] [phone] Chichi Woods MD [address] [place] [address] [phone] 04/11/2024 15:00 EDT Telemedicine [facility] Hematology & Oncology - [address] 918301 Alisson Carreon MD [address] [place] [address], Level [address] [place] [phone] 04/13/2024 13:30 EDT Appointment [facility] Hematology & Oncology [address] 733121 04/13/2024 14:00 EDT Appointment [facility] Hematology & Oncology [address] 494371 04/16/2024 10:00 EST Telemedicine [facility] Palliative Care Services [address] [place] [address] [phone] Chichi Woosd MD [address] [place] [address] [phone] 04/24/2024 9:00 EST Appointment [facility] Radiology CT Outpatient - [address] [address] 04/24/2024 11:00 EST Appointment [facility] Breast Imaging - [address] 981781 04/27/2024 12:00 EST Appointment [facility] Hematology & Oncology - [address] 814901 05/02/2024 15:00 EST Telemedicine [facility] Hematology & Oncology - [address] [address] Alisson Carreon MD 111 [facility], [facility], Level [address] [place] [phone] 05/04/2024 10:15 EST Ancillary Procedure [facility] Cardiology - [place] [place] [address] 05/04/2024 11:30 EST Appointment [facility] Hematology & Oncology [address] [address] 05/04/2024 12:00 EST Appointment [facility] Hematology & Oncology [address] 051621 06/12/2024 13:00 EST Appointment [facility] Radiology CT - [address] 359181 documented as of this encounter Procedures Procedure Name Priority Date/Time Associated Diagnosis Comments [place] MAMMO SCREENING DIGITAL 08/28/2010 15:48 EDT documented in this encounter Results * MA MAMMO SCREENING DIGITAL (08/28/2010 15:48 EDT) Anatomical Region Laterality Modality Other 08/28/2010 15:4 8 EDT 08/31/2010 13:33 EDT Narrative 08/31/2010 13:33 EDT Comparison is made to films from 08/26/2009 (left) and films from 07/19/2008 (left) and films from 07/18/2007 (left) and films from 06/17/2006 (left) and films from 06/14/2006 (left) and films from 06/11/2005 (left) and films from 06/16/2004 and films from 06/10/2004. Left Breast Findings: (CAD used to interpret routine digital and implant displaced views): There are scattered fibroglandular densities. A normal-appearing retro-pectoral implant is present. There are no suspicious masses, calcifications or other abnormalities. IMPRESSION: LEFT BREAST - CATEGORY 2, BENIGN A normal-appearing retro-pectoral implant. Benign, no evidence of malignancy. Normal [...] and agree with the findings. Procedure Note Nicely, MD Mustapha - 08/31/2010 Comparison is made to films from 08/26/2009 (left) and films from 07/19/2008 (left) and films from 07/18/2007 (left) and films from 06/17/2006 (left) and films from 06/14/2006 (left) and films from 06/11/2005 (left) and films from 06/16/2004 and films from 06/10/2004. Left Breast Findings: (CAD used to interpret routine digital and implant displaced views): There are scattered fibroglandular densities. A normal-appearing retro-pectoral implant is present. There are no suspicious masses, calcifications or other abnormalities. IMPRESSION: LEFT BREAST - CATEGORY 2, BENIGN A normal-appearing retro-pectoral implant. Benign, no evidence of malignancy. Normal [...] above interpretation and agree with the findings. Damian SUAREZ IMG MAMMOGRAPHY JAIMEE ACOSTA documented in this encounter Visit Diagnoses Not on filedocumented in this encounter Care Teams Water Project Manager Relationship Specialty Start Date End Date None, Provider PCP - General 08/21/09 01/05/11 documented as of this encounter
--- OUTSIDE RECORDS SUMMARY | 2024-03-20 15:14 | XMS_ITS | Encounter Summary ---
Author Organization [facility] Address [address] [place] [address] Care Team Providers Care Rolled Ham Lacer Name Role Phone None, Provider Primary Care Provider Unavailabl e Encounter Details Date Type Department Care Team (Late st Contact Info) Description 02/20/2010 Abstract Used for ABSTRACTING Data [phone] None, Provider Social History Tobacco Use Types [...] [facility] Interventional Radiology Unit [address] [place] [address] 04/02/2024 15:15 EDT Office Visit [facility] Surgical Oncology - [address] [address] Adolfo Carreno MD 111 [facility], Level 2 [place] [phone] 04/05/2024 9:30 EDT Telemedicine [facility] Palliative Care Services [address] [place], [place] 245141 Chichi Woods MD [address] [place] [address] 262 [place] [phone] 04/11/2024 15:00 EDT Telemedicine [facility] Hematology & Oncology - [address] 288471 Alisson Carreon MD [address] [place] [address], Level 2 [place] [phone] 04/13/2024 13:30 EDT Appointment [facility] Hematology & Oncology [address] [phone] 04/13/2024 14:00 EDT Appointment [facility] Hematology & Oncology [address] [phone] 04/16/2024 10:00 EST Telemedicine [facility] - [facility] Palliative Care Services [address] [place] [address] [phone] Chichi Woods MD [address] [place] [address] [phone] 04/24/2024 9:00 EST Appointment [facility] Radiology CT Outpatient - [address] 435761 04/24/2024 11:00 EST Appointment [facility] Breast Imaging - [facility] [address] 966231 04/27/2024 12:00 EST Appointment [facility] Hematology & Oncology [address] 587651 05/02/2024 15:00 EST Telemedicine [facility] Hematology & Oncology - [address] [phone] Alisson Carreon MD 111 [facility], [facility], Level 2 [place] [phone] 05/04/2024 10:15 EST Ancillary Procedure [facility] Cardiology - [address] [place] [address] 05/04/2024 11:30 EST Appointment [facility] Hematology & Oncology - [address] [phone] 05/04/2024 12:00 EST Appointment [facility] Hematology & Oncology [address] [phone] 06/12/2024 13:00 EST Appointment [facility] Radiology CT - [address] [phone] documented as of this encounter Visit Diagnoses Not on filedocumented in this encounter Care Teams Rolled Ham Lacer Relationship Specialty Start Date End Date None, Provider PCP - General 08/21/09 01/05/11 documented as of this encounter
--- OUTSIDE RECORDS SUMMARY | 2024-03-20 15:14 | XMS_ITS | Encounter Summary ---
Author Organization [facility] Address [address] [place] [address] Care Team Providers Care Ordinary Seaman Name Role Phone None, Provider Primary Care Provider Unavailabl e Reason for Visit * Reason Comments Abnormal Pap Smear Encounter Details Date Type Department Care Team (Late st Contact Info) Description 07/06/2010 13:30 EST Office Visit [facility] OBGYN Services - [address] [address] Quita Babb PA-C [address] [place] [address], Level 2 [place] [phone] ASCUS favor dysplasia (Primary Dx) Social History Tobacco Use Types [...] mouth daily. 90 Tab 3 07/09/2010 06/21/2011 ibandronate (BONIVA) 150 mg tablet Take 1 Tab by mouth every 30 days. 3 Tab 4 07/09/2010 08/25/2011 venlafaxine (EFFEXOR-XR) 150 mg XR capsule Take 1 Cap by mouth daily. Take 150 mg by mouth daily. 90 Cap 3 07/09/2010 05/19/2011 ibandronate (BONIVA) 150 mg tablet Take 1 Tab by mouth every 30 days. 3 Tab 4 07/07/2010 07/09/2010 documented in this encounter Progress Notes * Quita Babb PA - 07/07/2010 0959 EST Subjective: Patient ID: Sunshine Padilla is an 49 y.o. female. No chief complaint on file. HPI Sunshine Padilla is a 49 y.o. female with a history of premature ovarian failure, as well as DCIS who presents today primarily for a follow up pap smear, but also requests refill on medication and is having worsening hot flashes. Most recent pap history with ASCUS, positive HR HPV in 09/20, followed by benign colposcopy.Here today for first 6 month follow up pap smear. Prior to that, she began having abnormal pap smears in 2005, alternating between ASCUS and LSIL, and also was diagnosed with VAIN II and underwent laser therapy for that. She denies any vaginal bleeding. She has had a long standing history of hot flashes since hr POF, initially she was on HRT< bud discontinued this after her breast cancer diagnosis. She had been on topical clonidine lotion, as well as black cohosh and kava kava (followed by Katie Marino in the past) as well as Effexor, butdiscontinued everything except for the Effexor (75mg daily) about 2 years ago, and had been doing fine, until the last 6 months, when she began having hot flashes and night sweats again, 2-3 times daily. She requests a refill on her Effexor, Boniva, and Valcyclovir. She also had been using vagifem in the past, but admits that she has not been using it recently, and vaginal dryness has not been an issue for her. She follows with Damian Brooke in the breast care center regularly for her history of DCIS. Patient Active Problem List Diagnoses Code ??? [...] Smokeless tobacco: Never Used ??? Alcohol Use: 1.5 oz/week 3 drink(s) per week Current outpatient prescriptions ordered prior to encounter Medication Sig Dispense Refill ??? RED YEAST RICE EXTRACT ORAL Take by mouth daily. ??? DOXYLAMINE SUCCINATE (UNISOM ORAL) Take by mouth. ??? FAMOTIDINE/CALCIUM CARB/MAG (PEPCID COMPLETE ORAL) Take by mouth as needed. ??? IBUPROFEN ORAL Take by mouth as needed. ??? Testosterone (ANDROGEL) 1.25 g/Actuation GlPm Place onto the skin three times a week. 1 pump three times per week 75 g 3 ??? valACYclovir (VALTREX) 500 mg tablet Take 500 mg by mouth daily. ??? MULTIVITS W-CA,FE,OTHER MIN (WOMEN'S DAILY FORMULA ORAL) Take by mouth daily. ??? venlafaxine (EFFEXOR-XR) 150 mg XR capsule Take 75 mg by mouth daily. ??? ibandronate (BONIVA) 150 mg tablet Take 1 Tab by mouth every 30 days. 3 Tab 4 ??? estradiol (VAGIFEM) [address] 1 Tab vaginally twice a week. 24 Tab 3 Allergies Allergen Reactions ??? Sulfa (Sulfonamide Antibiotics) Hives Review of Systems Constitutional: Negative. HENT: Negative. Eyes: Negative. Respiratory: Negative. Cardiovascular: Negative. Gastrointestinal: Negative. Genitourinary: Negative. Musculoskeletal: Negative. Skin: Negative. Neurological: Negative. Endo/Heme/Allergies: Hot flashes Psychiatric/Behavioral: Negative. - See HPI Objective: There were no vitals taken for this visit. Physical Exam Cardiovascular: Normal rate and regular rhythm. Pulmonary/Chest: Effort normal and breath sounds normal. No respiratory distress. She has no wheezes. She has no rales. Abdominal: Soft. She exhibits no distension. No tenderness. She has no rebound and no guarding. Genitourinary: There is no rash, tenderness, lesion or injury on the right labia. There is no rash,tenderness, lesion or injury on the left labia. Cervix exhibits no motion tenderness, no discharge and no friability. Right adnexum displays no mass, no tenderness and no fullness. Left adnexum displays no mass, no tenderness and no fullness. No erythema, tenderness or bleeding around the vagina. No foreign body around the vagina. No signs of injury around the vagina. No discharge found. Assessment: Follow up for ASCUS, HR HPV. Hot flashes Plan: Sunshine was seen today for no specified reason. Diagnoses and associated orders for this visit: Ascus favor dysplasia - Pap Test Pap sent, if NIL, ASCUS or LSIL, repeat in 6 months. If HSIL, colpo now. Discussed management of her hot flashes. Options would include increasing the dose of her Effexor, vs resuming one of the other agents that she has used in the past (clonidine, kava kava or black cohosh). I did discuss this with Dr. Riley, who has treated her for her hot flashes in the past, and we agree that we will trial increasing her effexor to 150mg daily. Rx for Boniva, valtrex, and Effexor XR sent to [facility]. documented in this encounter Plan of Treatment Upcoming Encounters Date Type Department Care Team (Late st Contact Info) Description 04/02/2024 10:30 EDT Appointment [facility] Interventional Radiology Unit [address], [place] [phone] 04/02/2024 15:15 EDT Office Visit [facility] Surgical Oncology - [facility] [address], [place] [phone] Adolfo Carreno MD [address] [facility], Level 2 [place] [phone] 04/05/2024 9:30 EDT Telemedicine [facility] - [facility] Palliative Care Services [address], [place] [phone] Chichi Woods MD [address] [place] [address] [address] [place] [phone] 04/11/2024 15:00 EDT Telemedicine [facility] Hematology & Oncology [address] [phone] Alisson Carreon MD [address] [place] [address], [address] [place] [phone] 04/13/2024 13:30 EDT Appointment [facility] Hematology & Oncology [address] [id number] 04/13/2024 14:00 EDT Appointment [facility] Hematology & Oncology [address] [id number] 04/16/2024 10:00 EST Telemedicine [facility] - [facility] Palliative Care Services [address] [place] [phone] Chichi Woods MD [address] [place] [phone] 04/24/2024 9:00 EST Appointment [facility] Radiology CT Outpatient - [address] [id number] 04/24/2024 11:00 EST Appointment [facility] Breast Imaging - [facility] S [address] [id number] 04/27/2024 12:00 EST Appointment [facility] Hematology & Oncology - [address] [phone] 05/02/2024 15:00 EST Telemedicine [facility] Hematology & Oncology - [address] [phone] Alisson Carreon MD 111 [facility], [facility], Level [address] [place] [phone] 05/04/2024 10:15 EST Ancillary Procedure [facility] Cardiology - [address] [place] [address] 05/04/2024 11:30 EST Appointment [facility] Hematology & Oncology - [address] [id number] 05/04/2024 12:00 EST Appointment [facility] Hematology & Oncology [address] [phone] 06/12/2024 13:00 EST Appointment [facility] Radiology CT - [facility] [address] [place], [place] [address] Scheduled Orders Name Type Priority Associated Diagnoses Orde r Schedule PAP TEST- ORDER ONLY Pathology Routine ASCUS favor dysplasia Ordered: 07/06/2010 documented as of this encounter Visit Diagnoses Diagnosis Papanicolaou smear of cervix with atypical squamous cells cannot exclude high grade squamous intraepithelial lesion (ASC-H)- Primary documented in this encounter Discontinued Medications Medication Sig Discontinue Reason Start Date End Da te ibandronate (BONIVA) 150 mg tablet Take 1 Tab by mouth every 30 days. Reorder 09/12/2009 07/07/2010 venlafaxine (EFFEXOR-XR) 150 mg XR capsule Take 75 mg by mouth daily. 07/09/2010 ibandronate (BONIVA) 150 mg tablet Take 1 Tab by mouth every 30 days. Reorder 07/07/2010 07/09/2010 valACYclovir (VALTREX) 500 mg tablet Take 500 mg by mouth daily. Reorder 07/09/2010 documented as of this encounter Care Teams Ordinary Seaman Relationship Specialty Start Date End Date None, Provider PCP - General 08/21/09 01/05/11 documented as of this encounter
--- OUTSIDE RECORDS SUMMARY | 2024-03-20 15:14 | XMS_ITS | Encounter Summary ---
Author Organization [facility] Address [address] [place] [address] Care Team Providers Care Certified Alcohol Drug Counselor Name Role Phone Maria Fernanda Red MD Primary Care Provider Unavailab le Encounter Details Date Type Department Care Team (Late st Contact Info) Description 07/23/2008 Before PRISM Converted Visit (Maple) [facility] - Maple conversion [address] [place] [address] Damian Brooke ANP Social History Tobacco Use Types Packs/Day Years Used Date Smoking Tobacco: Never Assessed Sex and Gender Information Value Date Recorded Sex Assigned at Female 05/17/2019 15:31 EST Gender Identity Female 04/26/2019 13:08 EST Sexual Orientation Bisexual 08/26/2022 10 :47 EDT documented as of this encounter Progress Notes * Damian Brooke NP - 01/05/2009 0012 EDT DIVISION OF SURGICAL ONCOLOGY - BREAST [facility] PROGRESS/FOLLOWUP NOTE - 07/23/2008 PROBLEM Status post January 2004 right total mastectomy for DCIS. Here for routine followup. SURGICAL PROCEDURE AND DATE January 30, 2004 Right total mastectomy with bilateral reconstruction implant by Dr Pavan Batres. 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 Margin status: Positive at the anterior skin margin. ADJUVANT RADIATION None. ADJUVANT HORMONE THERAPY None. INTERVAL HISTORY The patient returns for routine posttreatment surveillance. She has no new focal areas of concern. She is trying to stay active but admits she has gained weight. This is more than she would like. Generally, she is feeling well with good energy and denies any new systemic complaints. CURRENT MEDICATIONS Effexor, Vagifem, AndroGel, Boniva, Vemma liquid, red yeast rice, Valtrex, Unisom, Pepcid, and ibuprofen as needed. ALLERGIES SULFA. 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 G0. She used oral contraceptives for 15 years and went through an early menopause at age 38. She has had a history of low-grade vaginal intraepithelial neoplasia treated in October 2006. FAMILY HISTORY She has a paternal aunt with a history of breast cancer in her early 30s. Her father had bladder cancer and at age 65. She has a maternal uncle with bladder cancer history at an unknown age. SOCIAL HISTORY She is enjoying her work at [employer]. Update form has been reviewed. OBJECTIVE On physical examination Sunshine is a very pleasant, 47woman in no acute distress. Her color is good. Her skin is warm and dry. Her sclerae are anicteric. She has no cervical, clavicular, or axillaryadenopathy. Her breasts are examined in the sitting and supine positions. She has a total mastectomy scar in the right breast with a subpectoral saline implant. There is no suspicious nodularity or area of concern. The left breast has a subpectoral implant. There is no skin or nipple change appreciated. Her exam is without any nodularity or concern. Her abdomen is flat, soft, and nontender, with no hepatosplenomegaly. Mammogram done July 2008 showed scattered density and a normal-appearing implant. No abnormality was seen. ASSESSMENT/PLAN Patient is four and a half years status post right total mastectomy for ductal carcinoma in situ. There is no clinical evidence for recurrence. She will return in six months for reevaluation to complete five years. At that point we will continue to follow on an annual basis. She is asked to come atany time if she notes new changes or problems. Signed by DANIELA Gamez 07/30/2008 17:07 DANIELA Gamez - DANIELA Gamez - LIBBY Job ID: [id number] Doc ID: [id number] cc: Maria Fernanda Red MD documented in this encounter Plan of Treatment Upcoming Encounters Date Type Department Care Team (Late st Contact Info) Description 04/02/2024 10:30 EDT Appointment [facility] Interventional Radiology Unit [address] [place] [phone] 04/02/2024 15:15 EDT Office Visit [facility] Surgical Oncology - [address] [phone] Adolfo Carreno MD [address] [place] [phone] 04/05/2024 9:[address] [facility] Palliative Care Services [address] [place] [phone] Chichi Woods MD [address] [place] [phone] 04/11/2024 15:00 EDT Telemedicine [facility] Hematology & Oncology - [address] [phone] Alisson Carreon MD [address] [place] [phone] 04/13/2024 13:30 EDT Appointment [facility] Hematology & Oncology [address] [id number] 04/13/2024 14:00 EDT Appointment [facility] Hematology & Oncology [address] [phone] 04/16/2024 10:[address] [facility] Palliative Care Services [address] [place] [address] [phone] Chichi Woods MD [address] [place] [phone] 04/24/2024 9:00 EST Appointment [facility] Radiology CT Outpatient - [address] [address] 04/24/2024 11:00 EST Appointment [facility] Breast Imaging - [facility] S [place] [address] [place] [address] 04/27/2024 12:00 EST Appointment [facility] Hematology & Oncology - [address] [phone] 05/02/2024 15:00 EST Telemedicine [facility] Hematology & Oncology [address] [phone] Alisson Carreon MD [address] [place] [address], [address] [place] [phone] 05/04/2024 10:15 EST Ancillary Procedure [facility] Cardiology - [place] [address] 05/04/2024 11:30 EST Appointment [facility] Hematology & Oncology - [address] [id number] 05/04/2024 12:00 EST Appointment [facility] Hematology & Oncology - [address] [phone] 06/12/2024 13:00 EST Appointment [facility] Radiology CT - [address] [phone] documented as of this encounter Visit Diagnoses Not on filedocumented in this encounter Care Teams Certified Alcohol Drug Counselor Relationship Specialty Start Date End Date Maria Fernanda Red MD PCP - General 12/17/08 08/20/09 documented as of this encounter
--- OUTSIDE RECORDS SUMMARY | 2024-03-20 15:14 | XMS_ITS | Encounter Summary ---
Author Organization [facility] Address [address] [place] [address] Care Team Providers Care Washer Engineer Helper Name Role Phone Unavailable Primary Care Provider Unavailabl e Encounter Details Date Type Department Care Team (Late st Contact Info) Description 07/23/2008 15:03 EST Hospital Encounter [address] [address] Damian Brooke, ANP Holley, Quita Mcneil PA-C [address] [phone] Discharge Disposition: Auto Discharge Social History Tobacco [...] EDT Appointment [facility] Interventional Radiology Unit [address] [place] [phone] 04/02/2024 15:15 EDT Office Visit [facility] Surgical Oncology - [address] [address] Adolfo Carreno MD [address] [place] [phone] 04/05/2024 9:30 EDT Telemedicine [facility] Palliative Care Services [address] [place] [address] [phone] Chichi Woods MD [address] [place] [phone] 04/11/2024 15:00 EDT Telemedicine [facility] Hematology & Oncology - [address] [phone] Alisson Carreon MD [address] [place] [address] 2 [place] [phone] 04/13/2024 13:30 EDT Appointment [facility] Hematology & Oncology - [address] [phone] 04/13/2024 14:00 EDT Appointment [facility] Hematology & Oncology - [address] [phone] 04/16/2024 10:00 EST Telemedicine [facility] Palliative Care Services [address] [place] [address] Chichi Woods MD [address] [place] [phone] 04/24/2024 9:00 EST Appointment [facility] Radiology CT Outpatient - [address] [phone] 04/24/2024 11:00 EST Appointment [facility] Breast Imaging - [address] 993251 04/27/2024 12:00 EST Appointment [facility] Hematology & Oncology [address] [address] 05/02/2024 15:00 EST Telemedicine [facility] Hematology & Oncology [address] [address] Alisson Carreon MD 111 [facility], Level 2 [place] [phone] 05/04/2024 10:15 EST Ancillary Procedure [facility] Cardiology - [address] [place] [address] 05/04/2024 11:30 EST Appointment [facility] Hematology & Oncology [address] [address] 05/04/2024 12:00 EST Appointment [facility] Hematology & Oncology [address] [address] 06/12/2024 13:00 EST Appointment [facility] Radiology CT - [address] [phone] documented as of this encounter Procedures Procedure Name Priority Date/Time Associated Diagnosis Comments THYROID CASCADE Routine 12/12/2008 11:10 EDT JODY TITER Routine 12/12/2008 11:10 EDT COMPLETE BLOOD COUNT Routine 12/12/2008 11:10 EDT SYPHILIS SERO (RPR) Routine 12/12/2008 1 1:10 EDT HIV 1/2 ANTIGEN AND ANTIBODY, 4TH GENERATION Routine 12/12/2008 11:10 EDT ANTI NUCLEAR AB (JODY), IFA Routine 12/12/2008 11:10 EDT LIPID PROFILE (INCLUDES CHOLESTEROL, TRIGLYCERIDES, HDL, LDL) Routine 12/12/2008 11:10 EDT BASIC METABOLIC PANEL (BMP) Routine 12/12/2008 11:10 EDT TESTS ADDED BY PHONE Routine 07/23/2008 16:41 EST HEPATITIS B SURFACE ANTIBODY Routine 07/23/2008 16:41 EST HEPATITIS B SURFACE ANTIGEN Routine 07/23/2008 16:41 EST documented in this encounter Results * (ABNORMAL) JODY TITER (12/12/2008 11:10 EDT) JODY Titer 640(H) 0 - 40 dils [facility] Comment: Diffuse and speckled JODY patterns. Result is equal to or greater than 640 dils. 12/12/2008 11:1 0 EDT 12/12/2008 19:33 EDT Maria Fernanda Red MD IMMUNOLOGY AND SEROL OGY ORDERABLES Performing Organization Address City/[facility]/ZIP Co de Phone Number [facility] [address] [place] [address] * THYROID CASCADE (12/12/2008 11:10 EDT) TSH 1.10 0.35 - 5.00 uIU/ml [facility] Comment: TSH cascade is not recommended for patients in which pituitary or hypothalamic disorders are suspected. 12/12/2008 11:1 0 EDT 12/12/2008 19:33 EDT Maria Fernanda Red MD CHEMISTRY & BLOOD GA S ORDERABLES Performing Organization Address [facility]/ZIP Co de Phone Number [facility] [address] [place] [address] * SYPHILIS SERO (RPR) (12/12/2008 11:10 EDT) Syphilis Sero (RPR) NONREACT. NR Dils [facility] 12/12/2008 11:1 0 EDT 12/12/2008 19:33 EDT Maria Fernanda Red MD IMMUNOLOGY AND SEROL OGY ORDERABLES Performing Organization Address [facility] Co de Phone Number [facility] [address] [place] [address] * LIPID PROFILE (12/12/2008 11:10 EDT) Pathologist [facility] Cholesterol 222 mg/dl [facility] Comment: Desirable:<200 Borderline High:200-239 High:>zb=883 Triglycerides 138 35 - 160 mg/dl [facility] HDL 51 mg/dl [facility] Comment: Low:<40 High(Desirable):>or=60 LDL, Calculated 143 mg/dl [facility] Comment: Optimal:<100 Above optimal:100-129 Borderline High:130-159 High:160-189 Very High:>zj=467 Chol/HDL Ratio 4.4 [facility] Fasting? Yes [facility] 12/12/2008 11:1 0 EDT 12/12/2008 19:33 EDT Maria Fernanda Red MD CHEMISTRY & BLOOD GA S ORDERABLES Performing Organization Address [facility] Co de Phone Number [facility] [address] [place] [address] * HIV ANTIBODY (12/12/2008 11:10 EDT) Pathologist [facility] HIV 1/2 Antibody Negative Reference Range: ??Negative [facility] 12/12/2008 11:1 0 EDT 12/12/2008 19:33 EDT Maria Fernanda Red MD IMMUNOLOGY AND SEROL OGY ORDERABLES Performing Organization Address [facility] Co de Phone Number [facility] [address] [place] [address] * (ABNORMAL) HEMAGRAM (12/12/2008 11:10 EDT) Pathologist [facility] WBC 5.65 4.0 - 12.4 K/cmm [facility] RBC 4.33 3.86 - 5.04 M/cmm [facility] Hemoglobin 14.5 11.6 - 15.2 gm/dl [facility] HCT 41.0 34.9 - 44.4 % [facility] MCV 95 81 - 98 fl [facility] MCH 33.6(H) 26.7 - 33.3 pg [facility] MCHC 35.5 32.1 - 35.9 gm/dl [facility] PLT 246 141 - 320 K/cmm [facility] RDW-CV 12.3 11.7 - 14.6 % [facility] 12/12/2008 11:1 0 EDT 12/12/2008 19:33 EDT Maria Fernanda Red MD HEMATOLOGY & PF4 ORD ERABLES Performing Organization Address [facility] Co de Phone Number [facility] [address] [place] [address] * BASIC METABOLIC PANEL (12/12/2008 11:10 EDT) Pathologist [facility] Sodium 140 136 - 145 mEq/L [facility] Potassium 4.3 3.5 - 5.0 mEq/L [facility] Chloride 105 96 - 110 mEq/L [facility] CO2 27 24 - 32 mEq/L [facility] BUN 16 10 - 26 mg/dl [facility] Creatinine 0.73 0.7 - 1.5 mg/dl [facility] GFR, Calculated >60 ml/min/1.7 3m2 [facility] Calcium 9.4 8.5 - 10.5 mg/dl [facility] Calculated Calcium 9.7 8.5 - 10.5 mg/dl [facility] Glucose, Serum 78 70 - 100 mg/dl [facility] Fasting? Yes [facility] 12/12/2008 11:1 0 EDT 12/12/2008 19:33 EDT Maria Fernanda Red MD CHEMISTRY & BLOOD GA S ORDERABLES Performing Organization Address [facility] Co de Phone Number [facility] [address] [place] [address] * ANTI NUCLEAR ANTIBODY (12/12/2008 11:10 EDT) Anti Nuclear Ab Positive at 40 dils, titer to follow. 0 - 40 Dils [facility] 12/12/2008 11:1 0 EDT 12/12/2008 19:33 EDT Maria Fernanda Red MD IMMUNOLOGY AND SEROL OGY ORDERABLES Performing Organization Address [facility] de Phone Number [facility] [address] [place] [address] * HEPATITIS B SURFACE ANTIBODY (07/23/2008 16:41 EST) Hepatitis B Surface Ab Negative Reference Range: ??Negative Interpretati on depends on clinical setting. [facility] 07/23/2008 16:4 1 EST 07/23/2008 16:43 EST Quita Babb PA-C CHEMISTRY & BL OOD GAS ORDERABLES Performing Organization Address [facility] Phone Number [facility] [address] [place] [address] * TESTS ADDED BY PHONE (07/23/2008 16:41 EST) Tests to be added HBAB [facility] Diagnosis Code SAME [facility] Who Called [facility] Location Code [facility] 07/23/2008 16:4 1 EST 07/23/2008 16:43 EST Quita Babb PA-C CHEMISTRY & BL OOD GAS ORDERABLES Performing Organization Address [facility] Co de Phone Number [facility] [address] [place] [address] * HEPATITS B SURFACE ANTIGEN (07/23/2008 16:41 EST) Hepatitis B Surface Ag Negative Reference Range: ??Negative [facility] 07/23/2008 16:4 1 EST 07/23/2008 16:43 EST Quita Babb PA-C CHEMISTRY & BL OOD GAS ORDERABLES [facility] [address] [place] [address] documented in this encounter Visit Diagnoses Not on filedocumented in this encounter
--- OUTSIDE RECORDS SUMMARY | 2024-03-20 15:14 | XMS_ITS | Encounter Summary ---
Author Organization [facility] Address [address] [place] [address] Care Team Providers Care Marketing Traffic Coordinator Name Role Phone None, Provider Primary Care Provider Unavailabl e Reason for Visit * Reason Comments Gynecologic Exam Encounter Details Date Type Department Care Team (Late st Contact Info) Description 09/12/2009 13:30 EDT Office Visit [facility] OBGYN Services - [address] [address] Quita Babb PA-C [address] [place] [address], Level 2 [place] [phone] Premature ovarian failure; HSV-2 infection; Routine gynecological examination Social History Tobacco Use Types Packs/Day Years Used Date Smoking Tobacco: Never Assessed Sex and Gender Information Value Date Recorded Sex Assigned at Female 05/17/2019 15:31 EST Gender Identity Female 04/26/2019 13:08 EST Sexual Orientation Bisexual 08/26/2022 10 :47 EDT documented as of this encounter Last Filed Vital Signs Vital Sign Reading Time Taken Comments Blood Pressure 90/52 09/12/2009 1353 EDT Pulse - - Temperature - - Respiratory Rate - - Oxygen Saturation - - Inhaled Oxygen Concentration - - Weight 58.8 kg (129 lb 9.6 oz) 09/12/2009 1353 E DT Height - - Body Mass Index - - documented in this encounter Ordered Prescriptions Prescription Sig Dispensed Refills Start Date End Da te estradiol (VAGIFEM) [address] 1 Tab vaginally twice a week. 24 Tab 3 09/15/2009 07/01/2011 ibandronate (BONIVA) 150 mg tablet Take 1 Tab by mouth every 30 days. 3 Tab 4 09/12/2009 07/07/2010 documented in this encounter Progress Notes * Quita Babb PA - 09/12/2009 1522 EDT Subjective: Patient ID: Sunshine Padilla is an 49 y.o. female. Chief Complaint: HPI Sunshine Padilla is a 49 y.o. 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 She was then weaned off of her HRT. She had been on multiple medications in the past after this for her hot flashes, including clonidine and multiple naturapathic medications including kava kava and black cohosh, which have since been discontinued. Her menopausal symptoms at this point are managed with Effexor, vagifem testosterone gel. She still has daily hot flashes, but states that the only thing that ever really worked was the estrogen. Her last mammogram was benign, she will follow up with the breast care center in the summer. She has a history of cervical dysplasia, most recently with LSIL in 02/2009. She was scheduled for a colposcopy, but did not make the appointment as she had been laid off from her job and was withouthealth insurance. She has since started working again. She has a new partner of 6 weeks, and does desire STD testing. Has history of genital herpes, and is on daily suppressive therapy with valtrex. She has no vaginal complaints today, and no dyspareuniaor post coital bleeding. Gallagher a history of osteopenia and is on monthly Boniva, last DEXA was in 2005. Recently had refills on her Valtrex and effexor sent in, needs refills on the rest of her medications. Past Medical History Diagnosis Date ??? Breast cancer November 2003 History reviewed. No pertinent family history. Current outpatient prescriptions Medication Sig Dispense Refill ??? valACYclovir (VALTREX) 500 mg tablet Take 500 mg by mouth daily. ??? Estradiol (VAGIFEM) [address] vaginally. ??? testosterone (ANDROGEL) 1 % (25 mg/2.5 g) GlPk Apply topically daily. ??? MULTIVITS W-CA,FE,OTHER MIN (WOMEN'S DAILY FORMULA ORAL) Take by mouth. ??? venlafaxine (EFFEXOR-XR) 150 mg XR capsule Take 75 mg by mouth daily. ??? ibandronate (BONIVA) 150 mg tablet Take 1 Tab by mouth every 30 days. 3 Tab 4 Allergies Allergen Reactions ??? Sulfa (Sulfonamide Antibiotics) Hives History Social History ??? Marital Status: Spouse Name: N/A Number of Children: N/A ??? Years of Education: N/A Occupational History ??? Not on file. Social History Main Topics ??? Tobacco Use: Not on file ??? Alcohol Use: Not on file ??? Drug Use: Not on file ??? Sexually Active: Not on file Other Topics Concern ??? Not on file Social History Narrative ??? No narrative on file Review of Systems Constitutional: Positive for weight loss. 30 pound intentional weight loss HENT: Negative. Eyes: Negative. Respiratory: Negative. Cardiovascular: Negative. Gastrointestinal: Negative. Genitourinary: Negative. Musculoskeletal: Negative. Skin: Negative. Neurological: Negative. Endo/Heme/Allergies: Hot flashes Psychiatric/Behavioral: Negative. Objective: Physical Exam Constitutional: She is oriented. She appears well-developed and well-nourished. HENT: Head: Normocephalic and atraumatic. Eyes: Pupils are equal, round, and reactive to light. Neck: Normal range of motion. Neck supple. No thyromegaly present. Cardiovascular: Normal rate, regular rhythm and normal heart sounds. Exam reveals no gallop and no friction rub. No murmur heard. Pulmonary/Chest: Effort normal and breath sounds normal. No respiratory distress. She has no wheezes. She has no rales. Abdominal: Soft. Bowel sounds are normal. She exhibits no distension. No tenderness. She has no rebound and no guarding. Genitourinary: Rectum normal. Vagina and cervix atrophic. Right adnexal fullness. Breast exam: bilateral implants Musculoskeletal: Normal range of motion. Neurological: She is alert and oriented. Skin: Skin is warm and dry. Assessment: Encounter Diagnoses Code Name Primary? Qualifier ??? 256.8Q Premature ovarian failure ??? 054.9BA HSV-2 infection ??? V72.31 Routine gynecological examination Plan: CHLAMYDIA/GC AMPLIFIED, PAP TEST- ORDER ONLY, SCREENING PAP SMEAR;OBTAIN,PREP,CONVEY TO LAB, HIV ANTIBODY (MANDEEP), HEPATITIS C ANTIBODY, HEPATITIS B CORE ANTIBODY, RAD US PELVIS TRANSABDOMINAL AND TRANSVAGINAL, DXA- DUAL XRAY ABSORPTIOMETRY FOR BONE DENSITY, SYPHILIS SEROLOGY Plan: 1) Pap sent. If NIL, repeat in 6 months and can likely defer colpo at this time (will confirm with Dr. Verduzco), if abnormal, she needs a colposcopy now. 2) Genprobe, and labslip for HIV, RPR, hepatitis B and C 3) TVUS to evaluate right adnexal fullness. 4) Repeat DEXA due now, ordered 5) Rx sent to [facility] for androgel, boniva and vagifem documented in this encounter Plan of Treatment Upcoming Encounters Date Type Department Care Team (Late st Contact Info) Description 04/02/2024 10:30 EDT Appointment [facility] Interventional Radiology Unit [address] [place], [place] [phone] 04/02/2024 15:15 EDT Office Visit [facility] Surgical Oncology - [address] [phone] Adolfo Carreno MD 111 [facility], Level 2 [place] [phone] 04/05/2024 9:30 EDT Telemedicine [facility] - [facility] Palliative Care Services [address] [place], [place] [phone] Chichi Woods MD 111 [facility], [address] [phone] 04/11/2024 15:[address] [facility] Hematology & Oncology - [facility] [address] [place], [place] 250661 Alisson Carreon MD [address] [place] [address], [facility] 2 [place] [phone] 04/13/2024 13:[address] [facility] Hematology & Oncology - [address] [phone] 04/13/2024 14:[address] [facility] Hematology & Oncology - [address] [phone] 04/16/2024 10:00 EST Telemedicine [facility] - [facility] Palliative Care Services [address] [place] [address] [phone] Chichi Woods MD [address] [place] [address], [address] [phone] 04/24/2024 9:00 EST Appointment [facility] Radiology CT Outpatient - [address] 438001 04/24/2024 11:00 EST Appointment [facility] Breast Imaging - [facility] [address] [address]131 04/27/2024 12:[address] [facility] Hematology & Oncology - [address] [phone] 05/02/2024 15:[address] [facility] Hematology & Oncology - [address] [phone] Alisson Carreon MD [address] [place] [address], [facility] 2 [place] [phone] 05/04/2024 10:15 EST Ancillary Procedure [facility] Cardiology - [address] [place], [place] [phone] 05/04/2024 11:[address] [facility] Hematology & Oncology [address] [address] 05/04/2024 12:[address] [facility] Hematology & Oncology [facility] [address] [place] [address] 06/12/2024 13:00 EST Appointment [facility] Radiology CT [facility] [address] [place] [address] Scheduled Orders Name Type Priority Associated Diagnoses Orde r Schedule PAP TEST- ORDER ONLY Pathology Routine Routine gynecological examination Ordered: 09/12/2009 SCREENING PAP SMEAR;OBTAIN,PREP,CONVEY TO LAB Procedures Routine Routine gynecological examination Ordered: 09/12/2009 DXA-DUAL XRAY ABSORPTIOMETRY FOR BONE DENSITY Imaging Routine Routine gynecological examination Ordered: 09/12/2009 documented as of this encounter Procedures Procedure Name Priority Date/Time Associated Diagnosis Comments HEPATITIS C AB W REFLEX TO HCV RNA BY PCR Routine 09/12/2009 14:45 EDT Routine gynecological examination CHLAMYDIA/N. GONORRHOEAE AMPLIFIED NUCLEIC ACID Routine 09/12/2009 14:22 EDT Routine gynecological examination documented in this encounter Results * SYPHILIS SEROLOGY (09/12/2009 14:45 EDT) Syphilis Serology Interpretation: Nonreactive Reference Range: Nonreactive [facility] Blood specimen (specimen) 09/12/2009 14:45 EDT 09/12/2009 14:48 EDT Quita Babb PA-C IMMUNOLOGY AND SEROLOGY ORDERABLES [facility] [address] [place] [address] * HEPATITIS B CORE ANTIBODY (09/12/2009 14:45 EDT) Hep B Core Ab Negative Reference Range: ??Negative Interpretati on depends on clinical setting. [facility] Blood specimen (specimen) 09/12/2009 14:45 EDT 09/12/2009 14:48 EDT Quita Babb PA-C CHEMISTRY & BL OOD GAS ORDERABLES Performing Organization Address [facility] Co de Phone Number [facility] [address] [place] [address] * HEPATITIS C ANTIBODY (09/12/2009 14:45 EDT) Hepatitis C Ab Negative Reference Range: ??Negative [facility] Blood specimen (specimen) 09/12/2009 14:45 EDT 09/12/2009 14:48 EDT Quita Babb PA-C CHEMISTRY & BL OOD GAS ORDERABLES Performing Organization Address [facility] de Phone Number [facility] [address] [place] [address] * HIV ANTIBODY (MANDEEP) (09/12/2009 14:45 EDT) Pathologist [facility] HIV 1/2 Antibody Negative Reference Range: ??Negative [facility] Blood specimen (specimen) 09/12/2009 14:45 EDT 09/12/2009 14:48 EDT Quita Babb PA-C IMMUNOLOGY AND SEROLOGY ORDERABLES Performing Organization Address [facility] de Phone Number [facility] [address] [place] [address] * CHLAMYDIA/GC AMPLIFIED (09/12/2009 14:22 EDT) Pathologist [facility] Specimen Description Unknown [facility] Chlamydia Result No Chlamydia trachomatis DNA detected by orthotic assistant mediated amplification. [facility] GC Result No Neisseria gonorrhoeae DNA detected by orthotic assistant mediated amplification. [facility] Specimen of unknown material (specimen) 09/12/2009 14:22 EDT 09/12/2009 17:31 EDT Quita Babb PA-C MICROBIOLOGY - GENERAL ORDERABLES Performing Organization Address [facility] Co de Phone Number [facility] [address] [place] [address] documented in this encounter Visit Diagnoses Diagnosis Premature ovarian failure Other ovarian dysfunction HSV-2 infection Herpes simplex without mention of complication Routine gynecological examination documented in this encounter Discontinued Medications Medication Sig Discontinue Reason Start Date End Da te ibandronate (BONIVA) 150 mg tablet Take 150 mg by mouth every 30 days. Reorder 09/12/2009 Estradiol (VAGIFEM) [address] vaginally. Reorder 09/12/2009 documented as of this encounter Historical Medications * This list may reflect changes made after this encounter. Medication Sig Dispensed Refills Start Date End Date MULTIVITS W-CA,FE,OTHER MIN (WOMEN'S DAILY FORMULA ORAL) Take by mouth daily. venlafaxine (EFFEXOR-XR) 150 mg XR capsule Take 75 mg by mouth daily. 07/09/2010 ibandronate (BONIVA) 150 mg tablet Take 150 mg by mouth every 30 days. 09/12/2009 testosterone (ANDROGEL) 1 % (25 mg/2.5 g) GlPk Apply topically daily. 09/22/2009 Estradiol (VAGIFEM) [address] vaginally. 09/12/2009 valACYclovir (VALTREX) 500 mg tablet Take 500 mg by mouth daily. 07/09/2010 added in this encounter Care Teams Marketing Traffic Coordinator Relationship Specialty Start Date End Date None, Provider PCP - General 08/21/09 01/05/11 documented as of this encounter
--- OUTSIDE RECORDS SUMMARY | 2024-03-20 15:14 | XMS_ITS | Encounter Summary ---
Author Organization [facility] Address [address] [place] [address] Care Team Providers Care Net Developer Programmer Name Role Phone None, Provider Primary Care Provider Unavailabl e Encounter Details Date Type Department Care Team (Late st Contact Info) Description 09/12/2009 14:37 EDT - 09/12/2009 23:59 EDT Hospital Encounter [address] [address] Quita Babb PA-C [address] [place] [address], Level 2 [place] [phone] Routine gynecological examination Discharge Disposition: Home or Self Care Social [...] DAILY FORMULA ORAL) Take by mouth daily. estradiol (VAGIFEM) [address] 1 Tab vaginally twice a week. 24 Tab 3 09/15/2009 07/01/2011 ibandronate (BONIVA) 150 mg tablet Take 1 Tab by mouth every 30 days. 3 Tab 4 09/12/2009 07/07/2010 testosterone (ANDROGEL) 1 % (25 mg/2.5 g) GlPk Apply topically daily. 09/22/2009 valACYclovir (VALTREX) 500 mg tablet Take 500 mg by mouth daily. 07/09/2010 venlafaxine (EFFEXOR-XR) 150 mg XR capsule Take 75 mg by mouth daily. 07/09/2010 documented as of this encounter Discharge Disposition Disposition Code Departure Means Destination Home or Self Penitentiary documented in this encounter Plan of Treatment Upcoming Encounters Date Type Department Care Team (Late st Contact Info) Description 04/02/2024 10:30 EDT Appointment [facility] Interventional Radiology Unit [address] [place] [address] [phone] 04/02/2024 15:15 EDT Office Visit [facility] Surgical Oncology - [address] [phone] Adolfo Carreno MD [address] [place] [address] [phone] 04/05/2024 9:30 EDT Telemedicine [facility] Palliative Care Services [address] [place] [address] [phone] Chichi Woods MD [address] [place] [address] [phone] 04/11/2024 15:00 EDT Telemedicine [facility] Hematology & Oncology [address] [phone] Alisson Carreon MD [address] [place] [address] [phone] 04/13/2024 13:30 EDT Appointment [facility] Hematology & Oncology [address] [phone] 04/13/2024 14:00 EDT Appointment [facility] Hematology & Oncology [address] [phone] 04/16/2024 10:00 EST Telemedicine [facility] - [facility] Palliative Care Services [address] [place] [address] [phone] Chichi Woods MD [address] [place] [address], [address] [phone] 04/24/2024 9:00 EST Appointment [facility] Radiology CT Outpatient - [address] [phone] 04/24/2024 11:00 EST Appointment [facility] Breast Imaging - [address] [phone] 04/27/2024 12:00 EST Appointment [facility] Hematology & Oncology - [address] [phone] 05/02/2024 15:00 EST Telemedicine [facility] Hematology & Oncology - [address] 103781 Alisson Carreon MD [address] [place] [address], Level [address] [place] [phone] 05/04/2024 10:15 EST Ancillary Procedure [facility] Cardiology - [address] [place], [place] [phone] 05/04/2024 11:30 EST Appointment [facility] Hematology & Oncology - [address] [phone] 05/04/2024 12:00 EST Appointment [facility] Hematology & Oncology [address] [phone] 06/12/2024 13:00 EST Appointment [facility] Radiology CT - [address] [phone] documented as of this encounter Procedures Procedure Name Priority Date/Time Associated Diagnosis Comments SYPHILIS SEROLOGY Routine 09/12/2009 14: 45 EDT Routine gynecological examination HEPATITIS B CORE ANTIBODY (TOTAL) Routine 09/12/2009 14:45 EDT Routine gynecological examination HIV 1/2 ANTIGEN AND ANTIBODY, 4TH GENERATION Routine 09/12/2009 14:45 EDT Routine gynecological examination HPV DETECTION, HIGH RISK TYPES Routine 09/12/2009 8:17 EDT CYTOPATHOLOGY Routine 09/12/2009 0:00 EDT documented in this encounter Results * SYPHILIS SEROLOGY (09/12/2009 14:45 EDT) Pathologist [facility] Syphilis Serology Interpretation: Nonreactive Reference Range: Nonreactive [facility] Blood specimen (specimen) 09/12/2009 14:45 EDT 09/12/2009 14:48 EDT Quita Babb PA-C IMMUNOLOGY AND SEROLOGY ORDERABLES Performing Organization Address [facility] Co de Phone Number [facility] [address] [place] [address] * HEPATITIS B CORE ANTIBODY (09/12/2009 14:45 EDT) Pathologist [facility] Hep B Core Ab Negative Reference Range: ??Negative Interpretati on depends on clinical setting. [facility] Blood specimen (specimen) 09/12/2009 14:45 EDT 09/12/2009 14:48 EDT Quita Babb PA-C CHEMISTRY & BL OOD GAS ORDERABLES Performing Organization Address [facility] Co de Phone Number [facility] [address] [place] [address] * HIV ANTIBODY (MANDEEP) (09/12/2009 14:45 EDT) HIV 1/2 Antibody Negative Reference Range: ??Negative [facility] Blood specimen (specimen) 09/12/2009 14:45 EDT 09/12/2009 14:48 EDT Quita Babb PA-C IMMUNOLOGY AND SEROLOGY ORDERABLES Performing Organization Address [facility] de Phone Number [facility] [address] [place] [address] * HUMAN PAPILLOMA VIRUS DNA TEST (09/12/2009 8:17 EDT) Specimen Description Cervix, ThinPrep vial [facility] Result Positive for one or more of HPV types 16,18,31,33,35 ,39,45,51,52,5 6,58,59, or 68. These high/intermedi ate risk HPV types are associated with dysplasia and some cervical cancers. [facility] Report Status Final 09/29/2009 [facility] 09/12/2009 8:17 EDT 09/25/2009 8:17 EDT Quita Babb PA-C MICROBIOLOGY - GENERAL ORDERABLES Performing Organization Address [facility] de Phone Number [facility] [address] [place] [address] * CYTOPATHOLOGY (09/12/2009 0:00 EDT) Pathology Report: CYTOPATHOLOGY REPORT ? Reports generated via electronic interface contain original data; ? however they are lacking the format of the original report. ? Caution should be taken when reading/interpreti ng unformatted reports. ? Name: ? PARDEEP SMITH A ? Accession #: ? [id number] ? : ? 1960 (Age: 49) ??F ?Collect Date: ? 09/12/2009 ? Location: ? [facility] ? Receive Date: ? 09/15/2009 ? Provider: ?QUITA B WILMER PA ? Copy to: ? Specimen/Source: ?Pap Test, Source Not Provided, ThinPrep Imaging System ?? with manual evaluation ? Last Menstrual Period: ? Hormonal/Contracep tive Status: ? Estrogen: vaginal ? Previous Gynecologic Pathology: ? LSIL: 9/09, follow up ? Treatment History: ? LEEP ? Other: ? HPVA - HPV testing requested if ASC-US on the current ThinPrep Pap test. ? SPECIMEN ADEQUACY ? Satisfactory for Evaluation ? - transformation zone component absent ? GENERAL CATEGORIZATION ? Epithelial Cell Abnormality ? INTERPRETATION ? Squamous Cell Abnormality - Atypical squamous cells, undetermined ? significance (ASC-US). ? EDUCATIONAL NOTES/RECOMMENDATI ONS ? [facility] recommends following the 2006 Consensus Guidelines for the Management of Women with Abnormal Cervical Cancer Screening Tests (JLGTD, ? 2007;11(4):201-222 ). ??Consensus guidelines are available online at ? www.ASCCP.org. ? Document reviewed and electronically signed by: ? ALTHEA LANCASTER MD [facility] ? Report Date: ??09/24/2009 18:07 ? End of Report ? [facility] 09/12/2009 09/15/2009 Quita Babb PA-C PATHOLOGY JAIMEE ACOSTA [facility] [address] [place] [address] documented in this encounter Visit Diagnoses Diagnosis Routine gynecological examination documented in this encounter Care Teams Net Developer Programmer Relationship Specialty Start Date End Date None, Provider PCP - General 08/21/09 01/05/11 documented as of this encounter
--- OUTSIDE RECORDS SUMMARY | 2024-03-20 15:14 | XMS_ITS | Encounter Summary ---
Author Organization [facility] Address [address] [place] [address] Care Team Providers Care Sterile Instrument Technician Name Role Phone Maria Fernanda Red MD Primary Care Provider Unavailab le Encounter Details Date Type Department Care Team (Late st Contact Info) Description 07/21/2009 Orders Only [facility] Surgical Oncology [address] [phone] Damian Brooke ANP Social History Tobacco Use [...] Contact Info) Description 04/02/2024 10:30 EDT Appointment [facility] Interventional Radiology Unit [address] [place] [address] [phone] 04/02/2024 15:15 EDT Office Visit [facility] Surgical Oncology [address] [phone] Adolfo Carreno MD 111 [facility], Level 2 [place] [phone] 04/05/2024 9:30 EDT Telemedicine [facility] Palliative Care Services [address] [place], [place] 102231 Chichi Woods MD [address] [place] [address] [address] [place] [phone] 04/11/2024 15:00 EDT Telemedicine [facility] Hematology & Oncology - [address] [phone] Alisson Carreon MD [address] [place] [address], Level [address] [place] [phone] 04/13/2024 13:30 EDT Appointment [facility] Hematology & Oncology [address] [phone] 04/13/2024 14:00 EDT Appointment [facility] Hematology & Oncology [address] [phone] 04/16/2024 10:00 EST Telemedicine [facility] - [facility] Palliative Care Services [address] [place] [address] [phone] Chichi Woods MD [address] [place] [address] [phone] 04/24/2024 9:00 EST Appointment [facility] Radiology CT Outpatient - [address] [id number] 04/24/2024 11:00 EST Appointment [facility] Breast Imaging - [facility] S [address] [phone] 04/27/2024 12:00 EST Appointment [facility] Hematology & Oncology [address] [phone] 05/02/2024 15:00 EST Telemedicine [facility] Hematology & Oncology - [address] [phone] Alisson Carreon MD 111 [facility], Level 2 [place] [phone] 05/04/2024 10:15 EST Ancillary Procedure [facility] Cardiology - [address] [place] [address] 05/04/2024 11:30 EST Appointment [facility] Hematology & Oncology - [address] [phone] 05/04/2024 12:00 EST Appointment [facility] Hematology & Oncology [address] [phone] 06/12/2024 13:00 EST Appointment [facility] Radiology CT - [address] [phone] documented as of this encounter Visit Diagnoses Not on filedocumented in this encounter Care Teams Sterile Instrument Technician Relationship Specialty Start Date End Date Maria Fernanda Red MD PCP - General 12/17/08 08/20/09 documented as of this encounter
--- OUTSIDE RECORDS SUMMARY | 2024-03-20 15:14 | XMS_ITS | Encounter Summary ---
Author Organization [facility] Address [address] [place] [address] Care Team Providers Care Woodworking Craftsman Name Role Phone Unavailable Primary Care Provider Unavailabl e Encounter Details Date Type Department Care Team (Late st Contact Info) Description 01/16/2008 13:02 EDT Hospital Encounter [address] [address] Quita Babb PA-C [address] [place] [address] [phone] Discharge Disposition: Auto Discharge Social History Tobacco [...] EDT Appointment [facility] Interventional Radiology Unit [address] [place] [address] [phone] 04/02/2024 15:15 EDT Office Visit [facility] Surgical Oncology - [address] [address] Adolfo Carreno MD [address] [phone] 04/05/2024 9:30 EDT Telemedicine [facility] Palliative Care Services [address] [place] [address] [phone] Chichi Woods MD [address] [place] [address] [phone] 04/11/2024 15:00 EDT Telemedicine [facility] Hematology & Oncology - [address] [phone] Alisson Carreon MD [address] [place] [address] 2 [place] [phone] 04/13/2024 13:30 EDT Appointment [facility] Hematology & Oncology - [address] [phone] 04/13/2024 14:00 EDT Appointment [facility] Hematology & Oncology [address] [phone] 04/16/2024 10:00 EST Telemedicine [facility] Palliative Care Services [address] [place] [address] [phone] Chichi Woods MD [address] [place] [address] [phone] 04/24/2024 9:00 EST Appointment [facility] Radiology CT Outpatient - [address] [phone] 04/24/2024 11:00 EST Appointment [facility] Breast Imaging - [address] [phone] 04/27/2024 12:00 EST Appointment [facility] Hematology & Oncology - [address] [address] 05/02/2024 15:00 EST Telemedicine [facility] Hematology & Oncology [address] [address] Alisson Carreon MD [address] [place] [address], Level 2 [place] [phone] 05/04/2024 10:15 EST Ancillary Procedure [facility] Cardiology - [address] [place] [address] 05/04/2024 11:30 EST Appointment [facility] Hematology & Oncology - [address] [phone] 05/04/2024 12:00 EST Appointment [facility] Hematology & Oncology [address] [phone] 06/12/2024 13:00 EST Appointment [facility] Radiology CT - [address] [phone] documented as of this encounter Visit Diagnoses Not on filedocumented in this encounter
--- OUTSIDE RECORDS SUMMARY | 2024-03-20 15:14 | XMS_ITS | Encounter Summary ---
Author Organization [facility] Address [address] [place] [address] Care Team Providers Care Lepidopterist Name Role Phone None, Provider Primary Care Provider Unavailabl e Encounter Details Date Type Department Care Team (Late st Contact Info) Description 09/22/2009 Orders Only [facility] OBGYN Services - [address] [address] Quita Babb PA-C 111 [facility], Level 2 [place] [phone] Menopausal and postmenopausal disorder (Primary Dx) Social History Tobacco Use Types Packs/Day Years Used Date Smoking Tobacco: Never Assessed Sex and Gender Information Value Date Recorded Sex Assigned at Female 05/17/2019 15:31 EST Gender Identity Female 04/26/2019 13:08 EST Sexual Orientation Bisexual 08/26/2022 10 :47 EDT documented as of this encounter Ordered Prescriptions Prescription Sig Dispensed Refills Start Date End Da te Testosterone (ANDROGEL) 1.25 g/Actuation GlPm Place onto the skin three times a week. 1 pump three times per week 75 g 3 09/22/2009 08/25/2011 Testosterone (ANDROGEL) 1.25 g/Actuation GlPm Place onto the skin three times a week. 1 pump three times per week 75 g 3 09/22/2009 09/22/2009 documented in this encounter Plan of Treatment Upcoming Encounters Date Type Department Care Team (Late st Contact Info) Description 04/02/2024 10:30 EDT Appointment [facility] Interventional Radiology Unit [address] [place] [address] [phone] 04/02/2024 15:15 EDT Office Visit [facility] Surgical Oncology - [address] [phone] Adolfo Carreno MD [address] [place] [address] [phone] 04/05/2024 9:30 EDT Telemedicine [facility] Palliative Care Services [address] [place] [address] [phone] Chichi Woods MD [address] [place] [address] [phone] 04/11/2024 15:00 EDT Telemedicine [facility] Hematology & Oncology - [address] [phone] Alisson Carreon MD [address] [place] [address] [phone] 04/13/2024 13:30 EDT Appointment [facility] Hematology & Oncology [address] [phone] 04/13/2024 14:00 EDT Appointment [facility] Hematology [facility] Oncology [address] [phone] 04/16/2024 10:00 EST Telemedicine [facility] Palliative Care Services [address] [place] [address] [phone] Chichi Woods MD [address] [place] [address] [phone] 04/24/2024 9:00 EST Appointment [facility] Radiology CT Outpatient - [address] [address] 04/24/2024 11:00 EST Appointment [facility] Breast Imaging - [facility] [address] [place] [address] 04/27/2024 12:00 EST Appointment [facility] Hematology & Oncology [address] [address] 05/02/2024 15:00 EST Telemedicine [facility] Hematology & Oncology [address] [phone] Alisson Carreon MD [address] [place] [address], Level 2 [place] [phone] 05/04/2024 10:15 EST Ancillary Procedure [facility] Cardiology - [place] [address] 05/04/2024 11:30 EST Appointment [facility] Hematology & Oncology [address] [address] 05/04/2024 12:00 EST Appointment [facility] Hematology [facility] Oncology [address] [phone] 06/12/2024 13:00 EST Appointment [facility] Radiology CT - [address] 735321 documented as of this encounter Visit Diagnoses Diagnosis Menopausal and postmenopausal disorder- Primary Unspecified menopausal and postmenopausal disorder documented in this encounter Discontinued Medications Medication Sig Discontinue Reason Start Date End Da te testosterone (ANDROGEL) 1 % (25 mg/2.5 g) GlPk Apply topically daily. Alternate therapy 09/22/2009 Testosterone (ANDROGEL) 1.25 g/Actuation GlPm Place onto the skin three times a week. 1 pump three times per week Reorder 09/22/2009 09/22/2009 documented as of this encounter Care Teams Lepidopterist Relationship Specialty Start Date End Date None, Provider PCP - General 08/21/09 01/05/11 documented as of this encounter
--- OUTSIDE RECORDS SUMMARY | 2024-03-20 15:14 | XMS_ITS | Encounter Summary ---
Author Organization [facility] Address [address] [place] [address] Care Team Providers Care Design Engineering Technician Name Role Phone Unavailable Primary Care Provider Unavailabl e Encounter Details Date Type Department Care Team (Late st Contact Info) Description 07/15/2008 13:10 EST Hospital Encounter [address] [address] Quita Babb PA-C [address] [place] [phone] Discharge Disposition: Auto Discharge Social History Tobacco [...] [facility] Interventional Radiology Unit [address] [place] [address] [phone] 04/02/2024 15:15 EDT Office Visit [facility] Surgical Oncology - [address] [address] Adolfo Carreno MD [address] [phone] 04/05/2024 9:30 EDT Telemedicine [facility] Palliative Care Services [address] [place] [address] 068491 Chichi Woods MD [address] [place] [address] [phone] 04/11/2024 15:00 EDT Telemedicine [facility] Hematology & Oncology - [address] [phone] Alisson Carreon MD [address] [place] [address], Level 2 [place] [phone] 04/13/2024 13:30 EDT Appointment [facility] Hematology & Oncology - [address] [phone] 04/13/2024 14:00 EDT Appointment [facility] Hematology & Oncology [address] [phone] 04/16/2024 10:00 EST Telemedicine [facility] Palliative Care Services [address] [place] [address] 915561 Chichi Woods MD [address] [place] [address] [phone] 04/24/2024 9:00 EST Appointment [facility] Radiology CT Outpatient - [address] [phone] 04/24/2024 11:00 EST Appointment [facility] Breast Imaging - [address] [phone] 04/27/2024 12:00 EST Appointment [facility] Hematology & Oncology [address] [address] 05/02/2024 15:00 EST Telemedicine [facility] Hematology & Oncology [address] [address] Alisson Carreon MD [address] [place] [address], Level [address] [place] [phone] 05/04/2024 10:15 EST Ancillary Procedure [facility] Cardiology - [address] [place] [address] 05/04/2024 11:30 EST Appointment [facility] Hematology & Oncology [address] [address] 05/04/2024 12:00 EST Appointment [facility] Hematology & Oncology [address] [address] 06/12/2024 13:00 EST Appointment [facility] Radiology CT - [address] [phone] documented as of this encounter Procedures Procedure Name Priority Date/Time Associated Diagnosis Comments HEPATITIS C AB W REFLEX TO HCV RNA BY PCR Routine 07/15/2008 14:15 EST HEPATITIS B CORE ANTIBODY (TOTAL) Routine 07/15/2008 14:15 EST SYPHILIS SERO (RPR) Routine 07/15/2008 1 4:15 EST HIV 1/2 ANTIGEN AND ANTIBODY, 4TH GENERATION Routine 07/15/2008 14:15 EST CHLAMYDIA/N. GONORRHOEAE AMPLIFIED RNA, URINE Routine 07/15/2008 14:09 EST documented in this encounter Results * SYPHILIS SERO (RPR) (07/15/2008 14:15 EST) Syphilis Sero (RPR) NONREACT. NR Dils [facility] 07/15/2008 14:1 5 EST 07/15/2008 14:17 EST Quita Babb PA-C IMMUNOLOGY AND SEROLOGY ORDERABLES Performing Organization Address [facility] Co de Phone Number [facility] [address] [place] [address] * HIV ANTIBODY (07/15/2008 14:15 EST) HIV 1/2 Antibody Negative Reference Range: ??Negative [facility] 07/15/2008 14:1 5 EST 07/15/2008 14:17 EST Quita Babb PA-C IMMUNOLOGY AND SEROLOGY ORDERABLES Performing Organization Address [facility] de Phone Number [facility] [address] [place] [address] * HEPATITIS C ANTIBODY (07/15/2008 14:15 EST) Hepatitis C Ab Negative Reference Range: ??Negative [facility] 07/15/2008 14:1 5 EST 07/15/2008 14:17 EST Quita Babb PA-C CHEMISTRY & BL OOD GAS ORDERABLES Performing Organization Address [facility] Phone Number [facility] [address] [place] [address] * HEPATITIS B CORE ANTIBODY (07/15/2008 14:15 EST) Hep B Core Ab Positive Indicates either remote past infection OR window period between disappearance of HBsAg and appearance of HBsAb. Reference Range: ??Negative Interpretation depends on clinical setting. [facility] 07/15/2008 14:1 5 EST 07/15/2008 14:17 EST Quita Babb PA-C CHEMISTRY & BL OOD GAS ORDERABLES Performing Organization Address [facility] Co de Phone Number [facility] [address] [place] [address] * CHLAMYDIA/GC AMPLIFIED, URINE (07/15/2008 14:09 EST) Specimen Description Urine [facility] Result No Chlamydia trachomatis DNA detected by before school mediated amplification. [facility] Result No Neisseria gonorrhoeae DNA detected by before school mediated amplification. [facility] 07/15/2008 14:0 9 EST 07/15/2008 14:19 EST Quita Babb PA-C MICROBIOLOGY - GENERAL ORDERABLES [facility] [address] [place] [address] documented in this encounter Visit Diagnoses Not on filedocumented in this encounter
--- OUTSIDE RECORDS SUMMARY | 2024-03-20 15:14 | XMS_ITS | Encounter Summary ---
Author Organization [facility] Address [address] [place] [address] Care Team Providers Care Restaurant Line Server Name Role Phone Unavailable Primary Care Provider Unavailabl e Encounter Details Date Type Department Care Team (Late st Contact Info) Description 01/11/2008 8:56 EDT Hospital Encounter [facility] [place] [address] [place] [address] Damian Brooke ANP Social History Tobacco Use Types Packs/Day Years Used Date Smoking Tobacco: Never Passive Smoke Exposure: Never Smokeless Tobacco: Never Alcohol Use Standard Drinks/Week Comments Not Currently 1 (1 standard drink = 0.6 oz pur e alcohol) [facility] Utilities Answer Date Recorded In the [...] Contact Info) Description 04/02/2024 10:30 EDT Appointment [facility] Interventional Radiology Unit [address] [place] [address] [phone] 04/02/2024 15:15 EDT Office Visit [facility] Surgical Oncology - [facility] [address], [place] [phone] Adolfo Carreno MD 111 [facility], Level 2 [place] [phone] 04/05/2024 9:30 EDT Telemedicine [facility] - [facility] Palliative Care Services [address], [place] [phone] Chichi Woods MD 111 [facility], [place] [address] [place] [phone] 04/11/2024 15:00 EDT Telemedicine [facility] Hematology & Oncology - [address] [phone] Alisson Carreon MD [address] [place] [address] 2 [place] [phone] 04/13/2024 13:30 EDT Appointment [facility] Hematology & Oncology - [address] [phone] 04/13/2024 14:00 EDT Appointment [facility] Hematology & Oncology - [address] [address] 04/16/2024 10:00 EST Telemedicine [facility] - [facility] Palliative Care Services [address] [place] [address] Chichi Woods MD [address] [place] [address] [phone] 04/24/2024 9:00 EST Appointment [facility] Radiology CT Outpatient - [address] 134131 04/24/2024 11:00 EST Appointment [facility] Breast Imaging - [address] 460731 04/27/2024 12:00 EST Appointment [facility] Hematology & Oncology - [address] [phone] 05/02/2024 15:00 EST Telemedicine [facility] Hematology & Oncology - [address] [phone] Alisson Carreon MD [address] [place] [address], [facility] 2 [place] [phone] 05/04/2024 10:15 EST Ancillary Procedure [facility] Cardiology - [place] [address] [place] [address] 05/04/2024 11:30 EST Appointment [facility] Hematology & Oncology [address] [phone] 05/04/2024 12:00 EST Appointment [facility] Hematology [address] [phone] 06/12/2024 13:00 EST Appointment [facility] [place] [facility] Radiology CT [address] [phone] documented as of this encounter Procedures Procedure Name Priority Date/Time Associated Diagnosis Comments CYTOPATHOLOGY Routine 01/16/2008 0:00 EDT documented in this encounter Results * CYTOPATHOLOGY (01/16/2008 0:00 EDT) Pathology Report: CYTOPATHOLOGY REPORT ? Reports generated via electronic interface contain original data; ? however they are lacking the format of the original report. ? Caution should be taken when reading/interpreti ng unformatted reports. ? Name: ? SUNSHINE SMITH ? Accession #: ? [id number] ? : ? 1960 (Age: 47) ??F ?Collect Date: ? 01/16/2008 ? Location: ? [facility] ? Receive Date: ? 01/17/2008 ? Provider: ?QUITA B WILMER PA ? Copy to: ? Specimen/Source: ?ThinPrep Pap Test, Cervix/Endocervix, processed on [employer] ThinPrep Imaging System, with manual evaluation ? Last Menstrual Period: ? Menstrual/Pregnanc y Status: ? Menopausal: S/P ? Previous Gynecologic Pathology: ? LSIL: H/H ? VAIN: I H/O ? Treatment History: ? Colposcopy: S/P 2/08 ? SPECIMEN ADEQUACY ? Satisfactory for Evaluation ? - transformation zone component present ? GENERAL CATEGORIZATION ? Epithelial Cell Abnormality ? INTERPRETATION ? Squamous Cell Abnormality - Low grade squamous intraepithelial lesion ? (LSIL). ? EDUCATIONAL NOTES/RECOMMENDATI ONS ? [facility] recommends following the 2006 Consensus Guidelines for the Management of Women with Abnormal Cervical Cancer Screening Tests (JLGTD, ? 2007;11(4):201-222 ). ??Consensus guidelines are available online at ? www.ASCCP.org. ? Document reviewed and electronically signed by: ? Daniel B. Ambaye, MD ? Report Date: ??01/19/2008 14:51 ? End of Report ? [facility] 01/16/2008 01/17/2008 Quita Babb PA-C PATHOLOGY JAIMEE ACOSTA [facility] [address] [place] [address] documented in this encounter Visit Diagnoses Not on filedocumented in this encounter Orders Lab Orders Without Results Count Last Ordered D ate First Ordered Date CYTOPATHOLOGY 1 01/16/2008 documented in this encounter Additional Health Concerns Infection Onset Date Last Indicated Resolved Time R/O COVID-19 12/12/2023 12/12/2023 12/12/2023 15:3 5 EDT R/O COVID-19 01/08/2024 01/08/2024 01/08/2024 18:2 6 EDT R/O COVID-19 01/16/2024 01/16/2024 01/16/2024 17:5 0 EDT documented as of this encounter
--- OUTSIDE RECORDS SUMMARY | 2024-03-20 15:14 | XMS_ITS | Encounter Summary ---
Author Organization [facility] Address [address] [place] [address] Care Team Providers Care Poultry Pinner Name Role Phone None, Provider Primary Care Provider Unavailabl e Encounter Details Date Type Department Care Team (Late st Contact Info) Description 09/29/2009 Abstract Used for ABSTRACTING Data [phone] None, Provider Social History Tobacco Use Types [...] Appointment [facility] Interventional Radiology Unit [address] [place] [address] [phone] 04/02/2024 15:15 EDT Office Visit [facility] Surgical Oncology - [facility] [address] [place] [address] Adolfo Carreno MD 111 [facility], Level [address] [place] [phone] 04/05/2024 9:30 EDT Telemedicine [facility] Palliative Care Services [address] [place] [address] Chichi Woods MD [address] [phone] 04/11/2024 15:00 EDT Telemedicine [facility] Hematology & Oncology - [address] 153121 Alisson Carreon MD [address] [place] [address] [address] [place] [phone] 04/13/2024 13:30 EDT Appointment [facility] Hematology & Oncology [address] [phone] 04/13/2024 14:00 EDT Appointment [facility] Hematology & Oncology [address] [address] 04/16/2024 10:00 EST Telemedicine [facility] - [facility] Palliative Care Services [address] [place] [address] 316151 Chichi Woods MD [address] [place] [address] [phone] 04/24/2024 9:00 EST Appointment [facility] Radiology CT Outpatient - [address] [phone] 04/24/2024 11:00 EST Appointment [facility] Breast Imaging - [address] 185551 04/27/2024 12:00 EST Appointment [facility] Hematology & Oncology - [address] [phone] 05/02/2024 15:00 EST Telemedicine [facility] Hematology & Oncology - [address] [phone] Alisson Carreon MD [address] [place] [address] 2 [place] [phone] 05/04/2024 10:15 EST Ancillary Procedure [facility] Cardiology - [place] [address] 05/04/2024 11:30 EST Appointment [facility] Hematology & Oncology [address] [address] 05/04/2024 12:00 EST Appointment [facility] Hematology & Oncology [address] [address] 06/12/2024 13:00 EST Appointment [facility] Radiology CT [address] 213781 documented as of this encounter Visit Diagnoses Not on filedocumented in this encounter Care Teams Poultry Pinner Relationship Specialty Start Date End Date None, Provider PCP - General 08/21/09 01/05/11 documented as of this encounter
--- OUTSIDE RECORDS SUMMARY | 2024-03-20 15:14 | XMS_ITS | Encounter Summary ---
Author Organization [facility] Address [address] [place] [address] Care Team Providers Care Quick Technician Name Role Phone Maria Fernanda Red MD Primary Care Provider Unavailab le Encounter Details Date Type Department Care Team (Late st Contact Info) Description 03/13/2009 Abstract [facility] Obstetrics & Midwifery - [address] [phone] Maria Fernanda Red MD Social History Tobacco Use Types Packs/Day [...] Appointment [facility] Interventional Radiology Unit [address] [place] [address] 188071 04/02/2024 15:15 EDT Office Visit [facility] Surgical Oncology - [address] 540241 Adolfo Carreno MD 111 [facility], [facility] 2 [place] [phone] 04/05/2024 9:30 EDT Telemedicine [facility] - [facility] Palliative Care Services [address] [place], [place] 089441 Chichi Woods MD [address] [place] [address] [phone] 04/11/2024 15:00 EDT Telemedicine [facility] Hematology & Oncology - [address] 993011 Alisson Carreon MD [address] [place] [address], Level [address] [place] [phone] 04/13/2024 13:30 EDT Appointment [facility] Hematology & Oncology [address] 019321 04/13/2024 14:00 EDT Appointment [facility] Hematology & Oncology [address] [phone] 04/16/2024 10:00 EST Telemedicine [facility] - [facility] Palliative Care Services [address] [place] [address] [phone] Chichi Woods MD [address] [place] [address] [phone] 04/24/2024 9:00 EST Appointment [facility] Radiology CT Outpatient - [address] 190751 04/24/2024 11:00 EST Appointment [facility] Breast Imaging - [address] [phone] 04/27/2024 12:00 EST Appointment [facility] Hematology & Oncology - [address] [phone] 05/02/2024 15:00 EST Telemedicine [facility] Hematology & Oncology - [address] [phone] Alisson Carreon MD 111 [facility], Level [address] [place] [phone] 05/04/2024 10:15 EST Ancillary Procedure [facility] Cardiology - [place] [address] [place] [address] 05/04/2024 11:30 EST Appointment [facility] Hematology & Oncology - [address] 897691 05/04/2024 12:00 EST Appointment [facility] Hematology & Oncology - [address] [phone] 06/12/2024 13:00 EST Appointment [facility] Radiology CT - [address] [phone] documented as of this encounter Visit Diagnoses Not on filedocumented in this encounter Care Teams Quick Technician Relationship Specialty Start Date End Date Maria Fernanda Red MD PCP - General 12/17/08 08/20/09 documented as of this encounter
--- OUTSIDE RECORDS SUMMARY | 2024-03-20 15:15 | XMS_ITS | Encounter Summary ---
Author Organization [facility] Address [address] [place] [address] Care Team Providers Care Card Grinder Name Role Phone Maria Fernanda Red MD Primary Care Provider Unavailab le Encounter Details Date Type Department Care Team (Late st Contact Info) Description 04/17/2007 Before PRISM Converted Visit (Maple) [facility] - Maple conversion [address] [place] [address] Santa Spicer FNP [facility] [address] [place] [address] Social History Tobacco Use Types Packs/Day Years [facility] [address] [place] [address] 04/02/2024 15:15 EDT Office Visit [facility] Surgical Oncology - [facility] [address] [place], [place] 432121 Adolfo Carreno MD 111 [facility], Level 2 [place] [phone] 04/05/2024 9:30 EDT Telemedicine [facility] Palliative Care Services [address] [place] [address] [phone] Chichi Woods MD [address] [place] [address] [phone] 04/11/2024 15:00 EDT Telemedicine [facility] Hematology & Oncology - [address] 916951 Alisson Carreon MD [address] [place] [address] 2 [place] [phone] 04/13/2024 13:30 EDT Appointment [facility] Hematology & Oncology - [address] 139671 04/13/2024 14:00 EDT Appointment [facility] Hematology & Oncology [address] 514071 04/16/2024 10:00 EST Telemedicine [facility] Palliative Care Services [address] [place] [address] 829161 Chichi Woods MD [address] [place] [address] [phone] 04/24/2024 9:00 EST Appointment [facility] Radiology CT Outpatient - [address] [phone] 04/24/2024 11:00 EST Appointment [facility] Breast Imaging - [address] 635461 04/27/2024 12:00 EST Appointment [facility] Hematology & Oncology - [address] [phone] 05/02/2024 15:00 EST Telemedicine [facility] Hematology & Oncology [address] [phone] Alisson Carreon MD 111 [facility], [facility], Level [address] [place] [phone] 05/04/2024 10:15 EST Ancillary Procedure [facility] Cardiology [place] [address] [place] [address] 05/04/2024 11:30 EST Appointment [facility] Hematology & Oncology [address] 598111 05/04/2024 12:00 EST Appointment [facility] Hematology & Oncology [address] [phone] 06/12/2024 13:00 EST Appointment [facility] Radiology CT - [address] [phone] documented as of this encounter Visit Diagnoses * Evaluation - Santa Spicer - 04/23/2009 1023 EST DIVISION OF INFECTIOUS DISEASE NEW PATIENT EVALUATION - 04/17/2007 [facility] Where: [place] When: 04/28/07 How Lon days Purpose: vacation Previous: [facility] ALLERGIES Sulfa - rash MEDICATIONS Clonidine, Effexor, Androgel, Boniva, Valrex PAST MEDICAL HISTORY S/p breast cancer, no other chronic illness, no cardiac or pulmonary disease, no hepatitis LAST MENSTRUAL PERIOD N/A IMMUNODEFICIENCY None PREVIOUS IMMUNIZATIONS TD 08/01/06 RISK/BENEFIT REVIEW Malaria maps reviewed, Ms. Montes De Oca is going to a malaria area. We discussed mefloquine vs. Malarone, Ms. Guerrero like Malarone. She will use DEET to prevent Dengue. We also discussed Hepatitis A, typhoid and polio vaccines and she will receive these today. She will seek Postexposure vaccine for rabies if necessary. X Insect/food/water/sex precautions reviewed. X Patient education handouts given PHYSICAL EXAM Temp: 96.4 BP: 113/73 Weight: 64 kg Barriers to learning/understanding: none The patient verbalized understanding and agrees with the plan. Total visit time: 20 minutes. Time spent on counseling by provider: 15 minutes IMMUNIZATIONS NEEDED Cholera: Yes/No Date Given Lot # Site 1 Yellow Fever 2 Typhoid, oral Typhim 04/17/07 See flow sheet See flow sheet 3 MMR 4 Tetanus Diphtheria 08/01/06 At primary care 5 Meningococcal Vaccine Menomune Menactra 6 Polio (OPV, IPV) 04/17/07 See flow sheet See flow sheet 7 Malaria Prophylaxis Chloroquine Malarone #26 Mefloquine Doxycycline Other 8 Immune Globulin WT: 9 Hepatitis A Vaccine See flow sheet See flow sheet Booster 10 Hepatitis B Vaccine Booster x1 month Booster x6 month 11 Influenza 12 Rabies Booster x7 days Booster x28 days 13 J.E.V. Booster x7 days Booster x30 days OTHER ANTIBIOTICS Ciprofloxacin 500 mg BID x 3 days PRN for severe diarrhea Patient advised to sit for 10 minutes. Signed by JAMEY Barnhart 04/24/2007 09:14 JAMEY Barnhart D: - JAMEY Barnhart - jane Job ID: Doc ID: [id number] cc: Maria Fernanda Red MD documented in this encounter Care Teams Card Grinder Relationship Specialty Start Date End Date Maria Fernanda Red MD PCP - General 12/17/08 08/20/09 documented as of this encounter
--- OUTSIDE RECORDS SUMMARY | 2024-03-20 15:15 | XMS_ITS | Encounter Summary ---
Author Organization [facility] Address [address] [place] [address] Care Team Providers Care Mill Tender Warm Up Name Role Phone None, Provider Primary Care Provider Maria Fernanda Bender MD Primary Care Provider Unavailab kovacs Encounter Details Date Type Department Care Team (Late st Contact Info) Description 07/18/2007 Results Only [facility] OBGYN Services - [address] [address] Mitzi Boategn FNP Social History Tobacco Use Types Packs/Day [...] EDT Appointment [facility] Interventional Radiology Unit [address] [place] [address] [phone] 04/02/2024 15:15 EDT Office Visit [facility] Surgical Oncology - [address] 685261 Adolfo Carreno MD 111 [facility], Level 2 [place] [phone] 04/05/2024 9:30 EDT Telemedicine [facility] Palliative Care Services [address] [place] [address] [phone] Chichi Woods MD [address] [place] [address] [phone] 04/11/2024 15:00 EDT Telemedicine [facility] Hematology & Oncology [address] 103181 Alisson Carreon MD [address] [place] [address] Level [address] [place] [phone] 04/13/2024 13:30 EDT Appointment [facility] Hematology & Oncology [address] [phone] 04/13/2024 14:00 EDT Appointment [facility] Hematology & Oncology [address] 630831 04/16/2024 10:00 EST Telemedicine [facility] - [facility] Palliative Care Services [address] [place] [address] [phone] Chichi Woods MD [address] [place] [address] [phone] 04/24/2024 9:00 EST Appointment [facility] Radiology CT Outpatient - [address] 032961 04/24/2024 11:00 EST Appointment [facility] Breast Imaging - [address] 338371 04/27/2024 12:00 EST Appointment [facility] Hematology & Oncology - [address] 344181 05/02/2024 15:00 EST Telemedicine [facility] Hematology & Oncology - [address] [address] Alisson Carreon MD 111 [facility], Level 2 [place] [phone] 05/04/2024 10:15 EST Ancillary Procedure [facility] Cardiology - [place] [address] [place] [address] 05/04/2024 11:30 EST Appointment [facility] Hematology & Oncology - [facility] [address] [place], [place] 136041 05/04/2024 12:00 EST Appointment [facility] Hematology & Oncology [address] [phone] 06/12/2024 13:00 EST Appointment [facility] Radiology CT - [facility] [address] [place], [place] [phone] documented as of this encounter Procedures Procedure Name Priority Date/Time Associated Diagnosis Comments CYTOPATHOLOGY Routine 07/18/2007 0:00 EST SURGICAL PATHOLOGY Routine 07/18/2007 0:00 EST documented in this encounter Results * CYTOPATHOLOGY (07/18/2007 0:00 EST) Pathology Report: CYTOPATHOLOGY REPORT Reports generated via electronic interface contain original data; however they are lacking the format of the original report. Caution should be taken when reading/interpreti ng unformatted reports. Name: ? SUNSHINE SMITH ? Accession #: ? [id number] : ? 1960 (Age: 46) ??F ?Collect Date: ? 07/18/2007 Location: ? [facility] ? Receive Date: ? 07/19/2007 Provider: ?MITZI BOATENG [facility] Copy to: ? Specimen/Source: ?ThinPrep Pap Test, Cervix/Endocervix, processed on [employer] ThinPrep Imaging System, with manual evaluation Last Menstrual Period: ? Previous Gynecologic Pathology: ? VAIN: 3 LSIL Other: ? Colposcopy Pap and/or biopsy in progress ? SPECIMEN ADEQUACY ? Satisfactory for Evaluation - transformation zone component present GENERAL CATEGORIZATION ? Epithelial Cell Abnormality INTERPRETATION ? Squamous Cell Abnormality - Atypical squamous cells, undetermined significance (ASC-US). EDUCATIONAL NOTES/RECOMMENDATI ONS ? [facility] recommends following the 2006 Consensus Guidelines for the Management of Women with Abnormal Cervical Cancer Screening Tests (JLGTD, 2007;11(4):201-222 ). ??Consensus guidelines are available online at www.ASCCP.org. ? Document reviewed and electronically signed by: ? CHER RGIFFITH MD ? Report Date: ??07/21/2007 14:04 End of Report [facility] 07/18/2007 07/19/2007 Mitzi Boateng [facility] PATHOLOGY ORDERABLES Performing Organization Address City/State/[facility] Co de Phone Number [facility] [address] [place] [address] * SURGICAL PATHOLOGY (07/18/2007 0:00 EST) Pathology Report: SURGICAL PATHOLOGY REPORT Reports generated via electronic interface contain original data; however they are lacking the format of the original report. Caution should be taken when reading/interpreti ng unformatted reports. Name: ? SMITHSUNSHINE ? Accession #: ? [id number] ? : ? 1960 (Age: 46) ??F ? N #: ? [id number] ? Collect Date: ? 07/18/2007 ? Location: ? [facility] ? Receive Date: ? 07/19/2007 ? Provider: MITZI BOATENG PHOTO FINISHER Copy to: ? Final Pathologic Diagnosis: A. ?Vagina, posterior to cervix, biopsies: 1. ?Squamous mucosa, negative for squamous intraepithelial lesion. ??See comment. B. ?Endocervix, curettage: 1. ?Benign endocervical cells and squamous epithelium, negative for squamous intraepithelial lesion. ??See comment. Comment: ? Deeper cuts have been examined from both (A) and (B). ??(Dr. Hawley)/easton Document reviewed and electronically signed by: IRMA HAWLEY MD Report ??Date: 07/24/2007 16:25 By the signature above, the attending physician certifies that he/she has personally conducted a gross and/or microscopic examination of the described specimens and rendered or confirmed the above diagnosis. Specimen(s) Received: A. ?Vagina B. ? ECC Clinical History: ? A. 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 Received in formalin labelled O'José and vagina post to cervix are two palomo-white soft tissues averaging 0.4 x 0.3 x 0.2 cm. ??The specimens are entirely submitted as (A). Received in formalin labelled O'José and ECC are 0.25 cc of moura-palomo mucinous material. ??The specimen is entirely submitted as (B). ??(Marek Barger)/samia End of Report [facility] 07/18/2007 07/19/2007 13: 30 EST Mitzi [facility] PATHOLOGY ORDERABLES Performing Organization Address City/State/[facility] Co de Phone Number [facility] [address] [place] [address] documented in this encounter Visit Diagnoses Not on filedocumented in this encounter Care Teams Mill Tender Warm Up Relationship Specialty Start Date End Date None, Provider PCP - General 08/21/09 01/05/11 Maria Fernanda Red MD PCP - General 12/17/08 08/20/09 documented as of this encounter
--- OUTSIDE RECORDS SUMMARY | 2024-03-20 15:15 | XMS_ITS | Encounter Summary ---
Author Organization [facility] Address [address] [place] [address] Care Team Providers Care Psychologist Clinical Name Role Phone Unavailable Primary Care Provider Unavailabl e Encounter Details Date Type Department Care Team (Latest Contact Info) Description 12/22/2006 15:37 EDT Hospital Encounter [address] [id number] Damian Brooke ANP Discharge Disposition: Auto Discharge [...] [facility] Interventional Radiology Unit [address] [place] [address] 04/02/2024 15:15 EDT Office Visit [facility] Surgical Oncology - [address] 225911 Adolfo Carreno MD 111 [facility], Level 2 [place] [phone] 04/05/2024 9:30 EDT Telemedicine [facility] [address] [place] [address] [phone] Chichi Woods MD [address] [place] [address] [phone] 04/11/2024 15:00 EDT Telemedicine [facility] Hematology & Oncology [address] [address] Alisson Carreon MD [address] [place] [address], Level 2 [place] [phone] 04/13/2024 13:30 EDT Appointment [facility] Hematology & Oncology [address] 126981 04/13/2024 14:00 EDT Appointment [facility] Hematology & Oncology [address] [address] 04/16/2024 10:00 EST Telemedicine [facility] - [facility] Palliative Care Services [address] [place] [address] 685281 Chichi Woods MD [address] [place] [address] [phone] 04/24/2024 9:00 EST Appointment [facility] Radiology CT Outpatient - [address] 775181 04/24/2024 11:00 EST Appointment [facility] Breast Imaging - [address] [phone] 04/27/2024 12:00 EST Appointment [facility] Hematology & Oncology - [address] [phone] 05/02/2024 15:00 EST Telemedicine [facility] Hematology & Oncology - [address] 910491 Alisson Carreon MD 111 [facility], Level 2 [place] [phone] 05/04/2024 10:15 EST Ancillary Procedure [facility] Cardiology - [address] [place], [place] [phone] 05/04/2024 11:30 EST Appointment [facility] Hematology & Oncology - [address] 752011 05/04/2024 12:00 EST Appointment [facility] Hematology & Oncology [address] [phone] 06/12/2024 13:00 EST Appointment [facility] Radiology CT - [facility] [address] [place], [place] [phone] documented as of this encounter Visit Diagnoses Not on filedocumented in this encounter
--- OUTSIDE RECORDS SUMMARY | 2024-03-20 15:15 | XMS_ITS | Encounter Summary ---
Author Organization [facility] Address [address] [place] [address] Care Team Providers Care Polysomnography Tech Name Role Phone Unavailable Primary Care Provider Unavailabl e Encounter Details Date Type Department Care Team (Latest Contact Info) Description 02/15/2006 14:37 EDT Hospital Encounter [address] [address] Farnaz Dumont FNP Discharge Disposition: Auto Discharge Social History Tobacco [...] EDT Appointment [facility] Interventional Radiology Unit [address] [place] [address] 04/02/2024 15:15 EDT Office Visit [facility] Surgical Oncology - [address] [phone] Adolfo Carreno MD [address] [place] [address], Level [address] [place] [phone] 04/05/2024 9:30 EDT Telemedicine [facility] Palliative Care Services [address] [place] [address] Chichi Woods MD [address] [place] [address] [phone] 04/11/2024 15:00 EDT Telemedicine [facility] Hematology & Oncology [address] 440021 Alisson Carreon MD [address] [place] [address], Level [address] [place] [phone] 04/13/2024 13:30 EDT Appointment [facility] Hematology & Oncology [address] [id number] 04/13/2024 14:00 EDT Appointment [facility] Hematology & Oncology [address] [address] 04/16/2024 10:00 EST Telemedicine [facility] - [facility] Palliative Care Services [address] [place] [address] [phone] Chichi Woods MD [address] [place] [address] [phone] 04/24/2024 9:00 EST Appointment [facility] Radiology CT Outpatient - [address] [id number] 04/24/2024 11:00 EST Appointment [facility] Breast Imaging - [address] 419121 04/27/2024 12:00 EST Appointment [facility] Hematology & Oncology - [address] [phone] 05/02/2024 15:00 EST Telemedicine [facility] Hematology & Oncology - [address] 771951 Alisson Carreon MD 111 [facility], Level [address] [place] [phone] 05/04/2024 10:15 EST Ancillary Procedure [facility] Cardiology - [address] [place], [place] [phone] 05/04/2024 11:30 EST Appointment [facility] Hematology & Oncology - [address] [phone] 05/04/2024 12:00 EST Appointment [facility] Hematology & Oncology [address] [phone] 06/12/2024 13:00 EST Appointment [facility] Radiology CT - [facility] [address] [place], [place] [phone] documented as of this encounter Visit Diagnoses Not on filedocumented in this encounter
--- OUTSIDE RECORDS SUMMARY | 2024-03-20 15:15 | XMS_ITS | Encounter Summary ---
Author Organization [facility] Address [address] [place] [address] Care Team Providers Care Service Center Coordinator Name Role Phone Unavailable Primary Care Provider Unavailabl e Encounter Details Date Type Department Care Team (Latest Contact Info) Description 02/14/2007 15:21 EDT Hospital Encounter [facility] - Other [address] [place] [address] Maria Fernanda Red MD Discharge Disposition: Home [...] [facility] Interventional Radiology Unit [address] [place] [address] 04/02/2024 15:15 EDT Office Visit [facility] Surgical Oncology - [address] 815201 Adolfo Carreno MD 111 [facility], Level 2 [place] [phone] 04/05/2024 9:30 EDT Telemedicine [facility] Palliative Care Services [address] [place] [address] 168201 Chichi Woods MD [address] [place] [address] [phone] 04/11/2024 15:00 EDT Telemedicine [facility] Hematology & Oncology [address] 871561 Alisson Carreon MD [address] [place] [address], Level [address] [place] [phone] 04/13/2024 13:30 EDT Appointment [facility] Hematology & Oncology [address] [address] 04/13/2024 14:00 EDT Appointment [facility] Hematology & Oncology [address] 359311 04/16/2024 10:00 EST Telemedicine [facility] Palliative Care Services [address] [place] [address] [phone] Chichi Woods MD [address] [place] [address] [phone] 04/24/2024 9:00 EST Appointment [facility] Radiology CT Outpatient - [address] 249051 04/24/2024 11:00 EST Appointment [facility] Breast Imaging - [address] 914431 04/27/2024 12:00 EST Appointment [facility] Hematology & Oncology - [address] 570401 05/02/2024 15:00 EST Telemedicine [facility] Hematology & Oncology - [address] [address] Alisson Carreon MD 111 [facility], Level 2 [place] [phone] 05/04/2024 10:15 EST Ancillary Procedure [facility] Cardiology - [address] [place], [place] [phone] 05/04/2024 11:30 EST Appointment [facility] Hematology & Oncology - [address] 520661 05/04/2024 12:00 EST Appointment [facility] Hematology & Oncology [address] 384341 06/12/2024 13:00 EST Appointment [facility] Radiology CT - [address] [phone] documented as of this encounter Visit Diagnoses Not on filedocumented in this encounter
--- OUTSIDE RECORDS SUMMARY | 2024-03-20 15:15 | XMS_ITS | Encounter Summary ---
Author Organization [facility] Address [address] [place] [address] Care Team Providers Care Sound Controller Name Role Phone Unavailable Primary Care Provider Unavailabl e Encounter Details Date Type Department Care Team (Latest Contact Info) Description 08/30/2006 19:01 EDT - 08/31/2006 11:59 EDT Hospital Encounter [facility] Emergency Department - [address] [phone] Emergency, MD Keegan Discharge Disposition: Home or Self Care Social [...] Appointment [facility] Interventional Radiology Unit [address] [place] [address] 886011 04/02/2024 15:15 EDT Office Visit [facility] Surgical Oncology - [address] [phone] Adolfo Carreno MD 111 [facility], Level 2 [place] [phone] 04/05/2024 9:30 EDT Telemedicine [facility] Palliative Care Services [address] [place] [address] 932761 Chichi Woods MD [address] [place] [address] [phone] 04/11/2024 15:00 EDT Telemedicine [facility] Hematology & Oncology [address] 259301 Alisson Carreon MD [address] [place] [address], Level [address] [place] [phone] 04/13/2024 13:30 EDT Appointment [facility] Hematology & Oncology [address] 627171 04/13/2024 14:00 EDT Appointment [facility] Hematology & Oncology [address] 178411 04/16/2024 10:00 EST Telemedicine [facility] Palliative Care Services [address] [place] [address] 088361 Chichi Woods MD [address] [place] [address] [phone] 04/24/2024 9:00 EST Appointment [facility] Radiology CT Outpatient - [address] [id number] 04/24/2024 11:00 EST Appointment [facility] Breast Imaging - [address] 778161 04/27/2024 12:00 EST Appointment [facility] Hematology & Oncology [address] 420211 05/02/2024 15:00 EST Telemedicine [facility] Hematology & Oncology [address] [address] Alisson Carreon MD 111 [facility], Level 2 [place] [phone] 05/04/2024 10:15 EST Ancillary Procedure [facility] Cardiology - [address] [place] [address] 05/04/2024 11:30 EST Appointment [facility] Hematology & Oncology [address] [address] 05/04/2024 12:00 EST Appointment [facility] Hematology & Oncology [address] [address] 06/12/2024 13:00 EST Appointment [facility] Radiology CT - [address] 189691 documented as of this encounter Procedures Procedure Name Priority Date/Time Associated Diagnosis Comments KNEE 4 OR MORE VIEWS 08/30/2006 20:27 EDT documented in this encounter Results * KNEE 4 OR MORE VIEWS (08/30/2006 20:27 EDT) Anatomical Region Laterality Modality Other 08/30/2006 20:2 7 EDT Narrative 12/11/2008 10:10 EDT OPEN LAC OVER KNEE, S/P FALL R/O FX History 46-year-old female with open laceration over the knee, status post fall, rule out fracture. Findings: Four views of the right knee are obtained. Bony mineralization is normal. Alignment in position or anatomic. No focal bony abnormality is seen. There is thickening in the suprapatella region of the knee. A soft tissue defect is present at the level of the knee compatible with the given history of laceration. There is a thin radiolucency seen superior to the patellar on the lateral view. This could represent air within soft tissues. Procedure Note Shasta Polo MD - 12/11/2008 OPEN LAC OVER KNEE, S/P FALL R/O FX History 46-year-old female with open laceration over the knee, status post fall, rule out fracture. Findings: Four views of the right knee are obtained. Bony mineralization is normal. Alignment in position or anatomic. No focal bony abnormality is seen. There is thickening in the suprapatella region of the knee. A soft tissue defect is present at the level of the knee compatible with the given history of laceration. There is a thin radiolucency seen superior to the patellar on the lateral view. This could represent air within soft tissues. Koffi Jenkins PA-C [facility] [employer]LES documented in this encounter Visit Diagnoses Not on filedocumented in this encounter
--- OUTSIDE RECORDS SUMMARY | 2024-03-20 15:15 | XMS_ITS | Encounter Summary ---
Author Organization [facility] Address [address] [place] [address] Care Team Providers Care Gem Cutter Name Role Phone Maria Fernanda Red MD Primary Care Provider Unavailab le Encounter Details Date Type Department Care Team (Late st Contact Info) Description 07/18/2007 Before PRISM Converted Visit (Maple) [facility] - Maple conversion [address] [place] [address] Damian Brooke ANP Social History Tobacco Use Types Packs/Day Years Used Date Smoking Tobacco: Never Assessed Sex and Gender Information Value Date Recorded Sex Assigned at Female 05/17/2019 15:31 EST Gender Identity Female 04/26/2019 13:08 EST Sexual Orientation Bisexual 08/26/2022 10 :47 EDT documented as of this encounter Progress Notes * Damian Brooke NP - 04/23/2009 1357 EST DIVISION OF SURGICAL ONCOLOGY - BREAST CARE CENTER PROGRESS/FOLLOWUP NOTE - 07/18/2007 PROBLEM 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 The patient is here for followup. SURGICAL PROCEDURE AND DATE January 30, 2004, right total mastectomy bilateral reconstruction with saline implants by Dr. Pavan Batres. 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 MARGIN STATUS: Positive at the anterior skin margin. ADJUVANT RADIATION None. ADJUVANT HORMONE THERAPY None. INTERVAL HISTORY Stephany returns for six-month followup surveillance. She does self-exams and denies any new focal areas of concern. She has had a melanocytic nevus excised from the lateral aspect of the right breast by Dr. Root in July 2006. No further treatment was indicated although there was mild cytologic atypia. She remains very physically active with salsa dancing. She notes she has put on approximately 15 pounds over the past year and this concerns her some but she stays very very active. She generally feels well with no new systemic complaints. CURRENT MEDICATIONS 1. Multivitamin. 2. Effexor. 3. Black cohosh. 4. Kava-kava. 5. Evening primrose oil. 6. AndroGel. 7. Womens Menocaps. 8. Boniva. 9. Vagifem. 10. Ibuprofen or Valtrex as needed. ALLERGIES SULFA. LAP WINDER HISTORY Menarche at age 13. She is zero. She used oral contraceptives for 15 years and went throughan early menopause at age 38. She has been using Vagifem for the past three and half years since her diagnosis. She has a LAP WINDER followup evaluation today. 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 FAMILY HISTORY She has a paternal aunt with a history of breast cancer in her early 30s. Her father had bladder cancer diagnosed at 65. Maternal uncle with bladder cancer at an unknown age. There is no other history of breast or ovarian cancer in maternal relatives. SOCIAL HISTORY She is in a relationship with a gentleman who enjoys competitive dancing. They travel extensively. Independently, she has gone to [facility] past year for two weddings. She has just started a new job with [email or web address] and is very excited by this. Update form has been reviewed. OBJECTIVE On physical examination Stephany is a well-appearing 46woman in no acute distress. Her color is good and her skin is warm and dry. She has no cervical, clavicular, or axillary adenopathy. Breast exam isdone sitting and supine. She has bilateral saline implants. There is a small keloid in the upper outer quadrant of the right breast where she has had recent skin excision. There is no other suspicious palpable change or skin abnormality appreciated on the right. There is a total mastectomy scar with slightly faded nipple tattooing. The left breast reveals no skin or nipple change. She has no palpable abnormality appreciated. Her abdomen is flat, soft, and nontender, with no hepatosplenomegaly. A left breast mammogram was done today showing scattered fibroglandular density and no evidence formalignancy. 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 She has no clinical evidence for recurrence. She has follow-up today with her LAP WINDER provider regarding cervical dysplasia. She willreturn for reevaluation in six months and we will continue this to complete five years. She knows to come at any point if she develops new change. Signed by DANIELA Gamez 07/20/2007 09:51 DANIELA Gamez - DANIELA Gamez - KD Job ID: [id number] Doc ID: [id number] cc: Maria Fernanda Red MD Cancer Data Registry 63834/10/2007 - DANIELA Gamez - mirella Job ID: [id number] Doc ID: [id number] cc: Maria Fernanda Red MD Cancer Data Registry documented in this encounter Plan of Treatment Upcoming Encounters Date Type Department Care Team (Late st Contact Info) Description 04/02/2024 10:30 EDT Appointment [facility] Interventional Radiology Unit [address] [place] [address] [id number] 04/02/2024 15:15 EDT Office Visit [facility] Surgical Oncology - [address] [phone] Adolfo Carreno MD 111 [facility], Level [address] [place] [phone] 04/05/2024 9:30 EDT Telemedicine [facility] - [facility] Palliative Care Services [address] [place] [address] [phone] Chichi Woods MD 111 [facility], [address] [phone] 04/11/2024 15:00 EDT Telemedicine [facility] Hematology & Oncology - [address] 548291 Alisson Carreon MD [address] [place] [address], [facility] 2 [place] [phone] 04/13/2024 13:30 EDT Appointment [facility] Hematology & Oncology - [address] [id number] 04/13/2024 14:00 EDT Appointment [facility] Hematology & Oncology - [address] [id number] 04/16/2024 10:00 EST Telemedicine [facility] - [facility] Palliative Care Services [address] [place] [address] Chichi Woods MD [address] [place] [address] [phone] 04/24/2024 9:00 EST Appointment [facility] Radiology CT Outpatient - [address] [id number] 04/24/2024 11:00 EST Appointment [facility] Breast Imaging - [facility] [address] [phone] 04/27/2024 12:00 EST Appointment [facility] Hematology & Oncology - [address] [phone] 05/02/2024 15:00 EST Telemedicine [facility] Hematology & Oncology - [address] 591981 Alisson Carreon MD [address] [place] [address], [facility] 2 [place] [phone] 05/04/2024 10:15 EST Ancillary Procedure [facility] Cardiology - [address] [place] [address] 05/04/2024 11:30 EST Appointment [facility] Hematology & Oncology [address] [address] 05/04/2024 12:00 EST Appointment [facility] Hematology & Oncology [address] [address] 06/12/2024 13:00 EST Appointment [facility] Radiology CT - [address] [address] documented as of this encounter Visit Diagnoses Not on filedocumented in this encounter Care Teams Gem Cutter Relationship Specialty Start Date End Date Maria Fernanda Red MD PCP - General 12/17/08 08/20/09 documented as of this encounter
--- OUTSIDE RECORDS SUMMARY | 2024-03-20 15:15 | XMS_ITS | Encounter Summary ---
Author Organization [facility] Address [address] [place] [address] Care Team Providers Care Property Management Supervisor Name Role Phone None, Provider Primary Care Provider Maria Fernanda Bender MD Primary Care Provider Unavailab kovacs Encounter Details Date Type Department Care Team (Late st Contact Info) Description 08/16/2007 Results Only [facility] - Maple conversion [address] [place] [address] Maria Fernanda Red MD Social History Tobacco [...] [facility] Interventional Radiology Unit [address] [place] [address] 04/02/2024 15:15 EDT Office Visit [facility] Surgical Oncology - [address] [address] Adolfo Carreno MD 111 [facility], Level 2 [place] [phone] 04/05/2024 9:30 EDT Telemedicine [facility] Palliative Care Services [address] [place], [place] 416881 Chichi Woods MD [address] [place] [address] [phone] 04/11/2024 15:00 EDT Telemedicine [facility] Hematology & Oncology [address] 676261 Alisson Carreon MD [address] [place] [address], Level 2 [place] [phone] 04/13/2024 13:30 EDT Appointment [facility] Hematology & Oncology [address] [phone] 04/13/2024 14:00 EDT Appointment [facility] Hematology & Oncology [address] 868751 04/16/2024 10:00 EST Telemedicine [facility] - [facility] Palliative Care Services [address] [place] [address] [phone] Chichi Woods MD [address] [place] [phone] 04/24/2024 9:00 EST Appointment [facility] Radiology CT Outpatient - [address] [id number] 04/24/2024 11:00 EST Appointment [facility] Breast Imaging - [facility] [address] 124061 04/27/2024 12:00 EST Appointment [facility] Hematology & Oncology - [address] 524951 05/02/2024 15:00 EST Telemedicine [facility] Hematology & Oncology - [address] [phone] Alisson Carreon MD 111 [facility], Level 2 [place] [phone] 05/04/2024 10:15 EST Ancillary Procedure [facility] Cardiology - [place] [address] [place] [address] 05/04/2024 11:30 EST Appointment [facility] Hematology & Oncology - [address] 748661 05/04/2024 12:00 EST Appointment [facility] Hematology & Oncology - [address] [id number] 06/12/2024 13:00 EST Appointment [facility] Radiology CT - [address] [phone] documented as of this encounter Procedures Procedure Name Priority Date/Time Associated Diagnosis Comments HOLD PURPLE TOP Routine 08/16/2007 8:30 EST TESTS ADDED BY PHONE Routine 08/16/2007 8:30 EST COMPLETE BLOOD COUNT Routine 08/16/2007 8:30 EST LIPID PROFILE (INCLUDES CHOLESTEROL, TRIGLYCERIDES, HDL, LDL) Routine 08/16/2007 8:30 EST COMPREHENSIVE METABOLIC PANEL (CMP) Routine 08/16/2007 8:30 EST documented in this encounter Results * LIPID PROFILE (INCLUDES CHOLESTEROL, TRIGLYCERIDES, HDL, LDL) (08/16/2007 8:30 EST) Cholesterol 164 mg/dl [facility] Comment: Desirable:<200 Borderline:200-239 High Risk:>og=179 Triglycerides 66 35 - 160 mg/dl [facility] HDL 59 mg/dl [facility] Comment: Highly Desirable:>60 Desirable:35-60 High Risk:<35 LDL, Calculated 92 mg/dl [facility] Comment: Desirable:<130 Borderline:130-159 High Risk:>lf=641 Chol/HDL Ratio 2.8 [facility] Fasting? Yes [facility] 08/16/2007 8:30 EST 08/16/2007 15:51 EST Maria Fernanda Red MD CHEMISTRY & BLOOD GA S ORDERABLES Performing Organization Address [facility] de Phone Number [facility] [address] [place] [address] * HOLD PURPLE TOP (08/16/2007 8:30 EST) Hold Purple Top EDTA for hematology will be discarded after 48 hours, differential not available after 12 hours. [facility] 08/16/2007 8:30 EST 08/16/2007 15:51 EST Maria Fernanda Red MD LAB INFO SERVICE AND SUPPORT & PHONE RESULT Performing Organization Address [facility] Phone Number [facility] [address] [place] [address] * COMPREHENSIVE METABOLIC PANEL (08/16/2007 8:30 EST) Potassium 4.1 3.5 - 5.0 mEq/L [facility] Sodium 141 136 - 145 mEq/L [facility] Chloride 108 96 - 110 mEq/L [facility] CO2 30 24 - 32 mEq/L [facility] Total Alkaline Phosphatase 71 38 - 126 U/L [facility] Bilirubin, Total <0.5 0.2 - 1.3 mg/dl [facility] AST 27 15 - 46 U/L [facility] ALT 25 9 - 52 U/L [facility] Albumin 3.8 3.4 - 4.9 g/dl [facility] Total Protein 6.5 6.5 - 8.3 g/dl [facility] Creatinine 0.75 0.7 - 1.5 mg/dl [facility] GFR, Calculated >60 ml/min/1.7 3m2 [facility] BUN 19 10 - 26 mg/dl [facility] Calcium 8.7 8.5 - 10.5 mg/dl [facility] Calculated Calcium 9.3 8.5 - 10.5 mg/dl [facility] Glucose, Serum 81 70 - 100 mg/dl [facility] Fasting? Yes [facility] 08/16/2007 8:30 EST 08/16/2007 15:51 EST Maria Fernanda Red MD CHEMISTRY & BLOOD GA S ORDERABLES Performing Organization Address [facility] Co de Phone Number [facility] [address] [place] [address] * HEMAGRAM (08/16/2007 8:30 EST) WBC 5.12 4.0 - 12.4 K/cmm [facility] RBC 4.07 3.86 - 5.04 M/cmm [facility] Hemoglobin 13.4 11.6 - 15.2 gm/dl [facility] HCT 39.4 34.9 - 44.4 % [facility] MCV 97 81 - 98 fl [facility] MCH 32.8 26.7 - 33.3 pg [facility] MCHC 33.9 32.1 - 35.9 gm/dl [facility] PLT 218 141 - 320 K/cmm [facility] RDW-CV 13.0 11.7 - 14.6 % [facility] 08/16/2007 8:30 EST 08/16/2007 15:51 EST Maria Fernanda Red MD HEMATOLOGY & PF4 ORD ERABLES Performing Organization Address City/[facility] Co de Phone Number [facility] [address] [place] [address] * TESTS ADDED BY PHONE (08/16/2007 8:30 EST) Tests to be added CBC [facility] Diagnosis Code SAME [facility] Who Called SHIVANI FOR DR [facility]UN[facility]A [facility] Location Code DPS [facility] 08/16/2007 8:30 EST 08/16/2007 15:51 EST Maria Fernanda Red MD HEMATOLOGY & PF4 ORD ERABLES [facility] [address] [place] [address] documented in this encounter Visit Diagnoses Not on filedocumented in this encounter Care Teams Property Management Supervisor Relationship Specialty Start Date End Date None, Provider PCP - General 08/21/09 01/05/11 Maria Fernanda Red MD PCP - General 12/17/08 08/20/09 documented as of this encounter
--- OUTSIDE RECORDS SUMMARY | 2024-03-20 15:15 | XMS_ITS | Encounter Summary ---
Author Organization [facility] Address [address] [place] [address] Care Team Providers Care Provider Engagement Executive Name Role Phone Unavailable Primary Care Provider Unavailabl e Encounter Details Date Type Department Care Team (Late st Contact Info) Description 06/21/2006 13:13 EST Hospital Encounter [facility] [place], [place] [address] [place] [address] Reinaldo Brooke, Provider, Social History Tobacco Use Types Packs/Day Years Used Date Smoking Tobacco: Never Passive Smoke Exposure: Never Smokeless Tobacco: Never Alcohol Use Standard Drinks/Week Comments Not Currently 1 (1 standard drink = 0.6 oz pur e alcohol) [facility] Utilities Answer Date Recorded In the [...] [facility] Interventional Radiology Unit [address] [place] [address] [phone] 04/02/2024 15:15 EDT Office Visit [facility] Surgical Oncology - [facility] [address] [place], [place] [phone] Adolfo Carreno MD 111 [facility], Level 2 [place] [phone] 04/05/2024 9:30 EDT Telemedicine [facility] - [facility] Palliative Care Services [address] [place], [place] [phone] Chichi Woods MD 111 [facility], [address] [phone] 04/11/2024 15:00 EDT Telemedicine [facility] Hematology & Oncology - [address] 844241 Alisson Carreon MD [address] [place] [address], [facility] [address] [place] [phone] 04/13/2024 13:30 EDT Appointment [facility] Hematology & Oncology - [address] 184621 04/13/2024 14:00 EDT Appointment [facility] Hematology & Oncology [address] 060051 04/16/2024 10:00 EST Telemedicine [facility] - [facility] Palliative Care Services [address] [place] [address] Chichi Woods MD [address] [place] [address] [phone] 04/24/2024 9:00 EST Appointment [facility] Radiology CT Outpatient - [address] [phone] 04/24/2024 11:00 EST Appointment [facility] Breast Imaging - [address] 389051 04/27/2024 12:00 EST Appointment [facility] Hematology & Oncology - [address] 196321 05/02/2024 15:00 EST Telemedicine [facility] Hematology & Oncology [address] [phone] Alisson Carreon MD [address] [place] [address], [facility] [address] [place] [phone] 05/04/2024 10:15 EST Ancillary Procedure [facility] Cardiology - [address] [place], [place] [phone] 05/04/2024 11:30 EST Appointment [facility] Hematology & Oncology [address] 994291 05/04/2024 12:00 EST Appointment [facility] Hematology & Oncology [address] 332301 06/12/2024 13:00 EST Appointment [facility] Radiology CT - [address] [phone] documented as of this encounter Visit Diagnoses Not on filedocumented in this encounter Additional Health Concerns Infection Onset Date Last Indicated Resolved Time R/O COVID-19 12/12/2023 12/12/2023 12/12/2023 15:3 5 EDT R/O COVID-19 01/08/2024 01/08/2024 01/08/2024 18:2 6 EDT R/O COVID-19 01/16/2024 01/16/2024 01/16/2024 17:5 0 EDT documented as of this encounter
--- OUTSIDE RECORDS SUMMARY | 2024-03-20 15:15 | XMS_ITS | Encounter Summary ---
Author Organization [facility] Address [address] [place] [address] Care Team Providers Care Esl Teacher Name Role Phone Unavailable Primary Care Provider Unavailabl e Encounter Details Date Type Department Care Team (Latest Contact Info) Description 04/18/2006 10:03 EST - 04/18/2006 11:59 EST Hospital Encounter [address] [address] Maria Fernanda Red MD Discharge Disposition: Auto [...] [facility] Interventional Radiology Unit [address] [place] [address] 04/02/2024 15:15 EDT Office Visit [facility] Surgical Oncology - [address] 599301 Adolfo Carreno MD 111 [facility], Level 2 [place] [phone] 04/05/2024 9:30 EDT Telemedicine [facility] Palliative Care Services [address] [place] [address] [phone] Chichi Woods MD [address] [place] [address] [phone] 04/11/2024 15:00 EDT Telemedicine [facility] Hematology & Oncology - [address] [phone] Alisson Carreon MD [address] [place] [address], Level 2 [place] [phone] 04/13/2024 13:30 EDT Appointment [facility] Hematology & Oncology [address] 908181 04/13/2024 14:00 EDT Appointment [facility] Hematology & Oncology [address] 756391 04/16/2024 10:00 EST Telemedicine [facility] Palliative Care Services [address] [place] [address] 571991 Chichi Woods MD [address] [place] [address] [phone] 04/24/2024 9:00 EST Appointment [facility] Radiology CT Outpatient - [address] [address] 04/24/2024 11:00 EST Appointment [facility] Breast Imaging - [address] [phone] 04/27/2024 12:00 EST Appointment [facility] Hematology & Oncology - [address] 298121 05/02/2024 15:00 EST Telemedicine [facility] Hematology & Oncology - [address] [address] Alisson Carreon MD [address] [place] [address], Level 2 [place] [phone] 05/04/2024 10:15 EST Ancillary Procedure [facility] Cardiology - [place] [address] 05/04/2024 11:30 EST Appointment [facility] Hematology & Oncology - [address] 744131 05/04/2024 12:00 EST Appointment [facility] Hematology & Oncology - [address] 018541 06/12/2024 13:00 EST Appointment [facility] Radiology CT - [address] [phone] documented as of this encounter Visit Diagnoses Not on filedocumented in this encounter
--- OUTSIDE RECORDS SUMMARY | 2024-03-20 15:15 | XMS_ITS | Encounter Summary ---
Author Organization [facility] Address [address] [place] [address] Care Team Providers Care Life Sciences Manager Name Role Phone Unavailable Primary Care Provider Unavailabl e Encounter Details Date Type Department Care Team (Latest Contact Info) Description 06/14/2006 16:00 EST Hospital Encounter [facility] - [address] [address] Damian Brooke ANP Discharge Disposition: Auto Discharge [...] Appointment [facility] Interventional Radiology Unit [address] [place] [address] 04/02/2024 15:15 EDT Office Visit [facility] Surgical Oncology - [address] 899381 Adolfo Carreno MD 111 [facility], Level [address] [place] [phone] 04/05/2024 9:30 EDT Telemedicine [facility] Palliative Care Services [address] [place] [address] [phone] Chichi Woods MD [address] [place] [address] [phone] 04/11/2024 15:00 EDT Telemedicine [facility] Hematology & Oncology [address] 615371 Alisson Carreon MD [address] [place] [address], Level [address] [place] [phone] 04/13/2024 13:30 EDT Appointment [facility] Hematology & Oncology [address] [phone] 04/13/2024 14:00 EDT Appointment [facility] Hematology & Oncology [address] [address] 04/16/2024 10:00 EST Telemedicine [facility] - [facility] Palliative Care Services [address] [place] [address] 023641 Chichi Woods MD [address] [place] [address] [phone] 04/24/2024 9:[address] [facility] Radiology CT Outpatient - [address] [address] 04/24/2024 11:00 EST Appointment [facility] Breast Imaging - [address] [phone] 04/27/2024 12:00 EST Appointment [facility] Hematology & Oncology - [address] 504191 05/02/2024 15:00 EST Telemedicine [facility] Hematology & Oncology - [address] 409641 Alisson Carreon MD 111 [facility], [facility], Level [address] [place] [phone] 05/04/2024 10:15 EST Ancillary Procedure [facility] Cardiology - [address] [place] [address] 05/04/2024 11:30 EST Appointment [facility] Hematology & Oncology - [facility] [address] [place], [place] 576911 05/04/2024 12:00 EST Appointment [facility] Hematology & Oncology [address] [phone] 06/12/2024 13:[address] [facility] Radiology CT - [facility] [address] [place], [place] [phone] documented as of this encounter Procedures Procedure Name Priority Date/Time Associated Diagnosis Comments [place] MAMMO SCREENING DIGITAL 06/14/2006 16:30 EST documented in this encounter Results * MA MAMMO SCREENING DIGITAL (06/14/2006 16:30 EST) Anatomical Region Laterality Modality Other 06/14/2006 16:3 0 EST Narrative 12/21/2008 0:57 EDT ROUTINE Comparison is made to films from 06/11/2005 (left) and films from 06/16/2004 and films from 06/10/2004 and films from 04/10/2003. Left Breast Findings: (CAD used to interpret routine digital and implant displaced views): There are scattered fibroglandular densities. ??A normal-appearing saline implant is present. No significant masses, calcifications or other abnormalities are seen. IMPRESSION: LEFT BREAST - CATEGORY 1 A normal-appearing saline implant. Negative, no evidence of malignancy. Normal interval follow-up is recommended in 12 months. OVERALL ASSESSMENT - NEGATIVE END OF IMPRESSION Procedure Note Betzaida Tracy MD - 12/21/2008 ROUTINE Comparison is made to films from 06/11/2005 (left) and films from 06/16/2004 and films from 06/10/2004 and films from 04/10/2003. Left Breast Findings: (CAD used to interpret routine digital and implant displaced views): There are scattered fibroglandular densities. A normal-appearing saline implant is present. No significant masses, calcifications or other abnormalities are seen. IMPRESSION: LEFT BREAST - CATEGORY 1 A normal-appearing saline implant. Negative, no evidence of malignancy. Normal interval follow-up is recommended in 12 months. OVERALL ASSESSMENT - NEGATIVE END OF IMPRESSION Damian SUAREZ IMG MAMMOGRAPHY JAIMEE ACOSTA documented in this encounter Visit Diagnoses Not on filedocumented in this encounter
--- OUTSIDE RECORDS SUMMARY | 2024-03-20 15:15 | XMS_ITS | Encounter Summary ---
Author Organization [facility] Address [address] [place] [address] Care Team Providers Care System Analyst Name Role Phone Unavailable Primary Care Provider Unavailabl e Encounter Details Date Type Department Care Team (Latest Contact Info) Description 05/11/2006 15:08 EST Hospital Encounter [facility] - Maple conversion [address] [place] [address] Demi Dan MD 2 [facility] Medical Office Building, [address] [place] [phone] Discharge Disposition: Auto Discharge Social History Tobacco [...] [facility] Interventional Radiology Unit [address] [place] [address] 04/02/2024 15:15 EDT Office Visit [facility] Surgical Oncology - [facility] [address] [place] [address] Adolfo Carreno MD 111 [facility], Level 2 [place] [phone] 04/05/2024 9:30 EDT Telemedicine [facility] Palliative Care Services [address] [place] [address] [phone] Chichi Woods MD [address] [place] [address] [phone] 04/11/2024 15:00 EDT Telemedicine [facility] Hematology & Oncology - [address] [phone] Alisson Carreon MD [address] [place] [address] 2 [place] [phone] 04/13/2024 13:30 EDT Appointment [facility] Hematology & Oncology - [address] [phone] 04/13/2024 14:00 EDT Appointment [facility] Hematology & Oncology [address] [phone] 04/16/2024 10:00 EST Telemedicine [facility] Palliative Care Services [address] [place] [address] [phone] Chichi Woods MD [address] [place] [address] [phone] 04/24/2024 9:[address] [facility] Radiology CT Outpatient - [address] [phone] 04/24/2024 11:00 EST Appointment [facility] Breast Imaging - [address] [phone] 04/27/2024 12:00 EST Appointment [facility] Hematology & Oncology - [address] [address] 05/02/2024 15:00 EST Telemedicine [facility] Hematology & Oncology - [address] [phone] Alisson Carreon MD [address] [place] [address], Level 2 [place] [phone] 05/04/2024 10:15 EST Ancillary Procedure [facility] Cardiology - [address] [place] [address] 05/04/2024 11:30 EST Appointment [facility] Hematology & Oncology - [address] [phone] 05/04/2024 12:00 EST Appointment [facility] Hematology & Oncology - [address] [phone] 06/12/2024 13:[address] [facility] Radiology CT - [address] [phone] documented as of this encounter Visit Diagnoses Not on filedocumented in this encounter
--- OUTSIDE RECORDS SUMMARY | 2024-03-20 15:15 | XMS_ITS | Encounter Summary ---
Author Organization [facility] Address [address] [place] [address] Care Team Providers Care Furnace Charger Name Role Phone Unavailable Primary Care Provider Unavailabl e Encounter Details Date Type Department Care Team (Latest Contact Info) Description 04/14/2006 13:28 EST Hospital [facility]counter [facility] [address] [place] [address] Demi Dan MD 2 [facility] Medical Office Building, [address] [place] [phone] Discharge Disposition: Auto Discharge Social History Tobacco [...] EDT Appointment [facility] Interventional Radiology Unit [address] [place] [address] 04/02/2024 15:15 EDT [facility] - [facility] [address] [place] [address] Adolfo Carreno MD 111 [facility], Level 2 [place] [phone] 04/05/2024 9:30 EDT Telemedicine [facility] Palliative Care Services [address] [place] [address] [phone] Chichi Woods MD [address] [place] [address] [phone] 04/11/2024 15:[address] Hematology & Oncology - [address] [phone] Alisson Carreon MD [address] [place] [address] 2 [place] [phone] 04/13/2024 13:[address] Hematology & Oncology - [address] [phone] 04/13/2024 14:[address] Hematology & Oncology [address] [phone] 04/16/2024 10:00 EST Telemedicine [facility] Palliative Care Services [address] [place] [address] [phone] Chichi Woods MD [address] [place] [address] [phone] 04/24/2024 9:00 EST Appointment [facility] Radiology CT Outpatient - [address] [id number] 04/24/2024 11:00 EST Appointment [facility] Breast Imaging - [address] [id number] 04/27/2024 12:[address] Hematology & Oncology - [address] [address] 05/02/2024 15:[address] Hematology & Oncology [address] [address] Alisson Carreon MD 111 [facility], Level 2 [place] [phone] 05/04/2024 10:15 EST Ancillary Procedure [facility] Cardiology - [address] [place] [address] 05/04/2024 11:[address] Hematology & Oncology [address] [address] 05/04/2024 12:[address] Hematology & Oncology [address] [id number] 06/12/2024 13:00 EST Appointment [facility] Radiology CT - [address] [phone] documented as of this encounter Procedures Procedure Name Priority Date/Time Associated Diagnosis Comments N. GONORRHOEAE AMPLIFIED PROBE Routine 04/14/2006 22:00 EST ZZCHLAMYDIA TRACHOMATIS AMPLIFIED PROBE Routine 04/14/2006 22:00 EST documented in this encounter Results * N. GONORRHOEAE AMPLIFIED PROBE (04/14/2006 22:00 EST) Result No Neisseria gonorrhoeae DNA detected by nodulizer mediated amplification. [facility] Report Status Final [id number] [facility] Specimen Description Cervix [facility] 04/14/2006 22:0 0 EST 04/14/2006 22:00 EST Demi Dan MD MICRO[facility]OLOGY - [facility] ORDERABLES [facility] [address] [place] [address] * CHLAMYDIA TRACHOMATIS AMPLIFIED PROBE (04/14/2006 22:00 EST) Specimen Description Cervix [facility] Result No Chlamydia trachomatis DNA detected by nodulizer mediated amplification. [facility] Report Status Final [id number] [facility] 04/14/2006 22:0 0 EST 04/14/2006 22:00 EST Demi Dan MD [facility]OLOGY - [facility] ORDERABLES [facility] [address] [place] [address] documented in this encounter Visit Diagnoses Not on filedocumented in this encounter
--- OUTSIDE RECORDS SUMMARY | 2024-03-20 15:15 | XMS_ITS | Encounter Summary ---
Author Organization [facility] Address [address] [place] [address] Care Team Providers Care Maintenance Services Dispatcher Name Role Phone Maria Fernanda Red MD Primary Care Provider Unavailab le Encounter Details Date Type Department Care Team (Late st Contact Info) Description 12/22/2006 Before PRISM Converted Visit (Map[facility]) [facility] - Maple conversion [address] [place] [address] Damian Brooke ANP Social History Tobacco Use Types Packs/Day Years Used Date Smoking Tobacco: Never Assessed Sex and Gender Information Value Date Recorded Sex Assigned at Female 05/17/2019 15:31 EST Gender Identity Female 04/26/2019 13:08 EST Sexual Orientation Bisexual 08/26/2022 10 :47 EDT documented as of this encounter Progress Notes * Damian Brooke NP - 04/17/2009 0331 EST DIVISION OF SURGICAL ONCOLOGY - [facility] PROGRESS/FOLLOWUP NOTE - 12/22/2006 IDENTIFICATIONpatient is a 45-year-old female with a history of right breast DCIS, treated with total mastectomy. She is here for follow up. SURGICAL PROCEDURE AND DATE 01/30/04 total mastectomy, bilateral reconstruction with saline implants by Dr. Pavan Batres. SURGICAL PATHOLOGY Tumor: DCIS, 2.7 cm maximal dimension, moderate nuclear grade. Margin status: Positive at the anterior skin margin. ADJUVANT RADIATION None. ADJUVANT HORMONE THERAPY None. INTERVAL HISTORY Sendy returns for posttreatment surveillance. She does self exams and denies any new areas of focalconcern. She continues to be very pleased with her cosmetic outcome. Her health is otherwise stable. She had a cross country ski injury of her right knee which [id number] stitches in August 2006. She is still healing from this. She is otherwise feeling 15 pounds overweight but in good health. CURRENT MEDICATIONS Multivitamin, Effexor, black cohosh, cava cava, evening primrose, AndroGel three times a week, Womens Menocaps daily, Boniva once a month, ibuprofen as needed, and Vagifem three times a week. ALLERGIES Sulfa. TEAM PRIMARY CARE PHYSICIAN HISTORY Menarche at age 13. G0. She used oral contraceptives x 15 years and went through an early menopauseat age 38. She used estrogen cream for four and a half years prior to her diagnosis and currently uses Vagifem. FAMILY HISTORY She has a paternal aunt with a history of breast cancer in her early 30s. Her father had bladder cancer diagnosed at 65. A maternal uncle had bladder cancer at an unknown age. There is no other history of breast or ovarian cancer. SOCIAL HISTORY She is and in a new relationship. She has started a new job at [employer] and is very pleased about this. Update form has been reviewed. OBJECTIVE On physical examination is a very pleasant, well-appearing, 46-year-old woman in no distress. Her color is good. skin is warm and dry. Her sclerae are anicteric. She has no cervical, clavicular, or axillary adenopathy. Her breasts are examined in the sitting and supine positions. She has a subpectoral implant in the right breast and a prepectoral left breast implant for augmentation. On the rightthere is no evidence of palpable abnormality appreciated. In the left breast at 12:00, there is a tiny area of palpable nodularity. This does not appear concerning, but it has not been identified previously. Abdomen is flat, soft, and nontender, with no hepatosplenomegaly. Mammogram done June 2006 of the left breast showed scattered density with normal-appearing saline implant. The office ultrasound was used to focally evaluate the left breast at 12:00 over the region of palpable change. She is noted to have an island of glandular tissue in this location. There is no cysticor solid mass associated. Findings were reviewed with Dr. Kearney. ASSESSMENT Patient is three years status post right total mastectomy for DCIS. She has no clinical evidence for recurrence. There is some palpable change in the left breast which is likely normal glandular tissue. I realize that she is taking both phytoestrogens and vaginal estrogens, which may be stimulatingto a small extent the left breast tissue. There does not appear to be any suspicious abnormality atthis time. PLAN Patient will be scheduled for her annual left breast mammogram in June 2007. She is asked to return for a clinical evaluation in six months. She knows to return sooner if she develops any new changes or problems. Signed by DANIELA Gamez 12/29/2006 15:[address] ANP DANIELA Gamez DANIELA Gamez - caitlin Job ID: [id number] Doc ID: [id number] cc: Maria Fernanda Red MD Cancer Data Registry documented in this encounter Plan of Treatment Upcoming Encounters Date Type Department Care Team (Late st Contact Info) Description 04/02/2024 10:30 EDT Appointment [facility] Interventional Radiology Unit [address] [place] [address] [phone] 04/02/2024 15:15 EDT Office Visit [facility] Surgical Oncology - [address] [phone] Adolfo Carreno MD 111 [facility], [facility] 2 [place] [phone] 04/05/2024 9:30 EDT Telemedicine [facility] - [facility] Palliative Care Services [address] [place] [address] [phone] Chichi Woods MD [address] [place] [address] [phone] 04/11/2024 15:00 EDT Telemedicine [facility] Hematology & Oncology - [address] [phone] Alisson Carreon MD [address] [place] [address], [facility] 2 [place] [phone] 04/13/2024 13:30 EDT Appointment [facility] Hematology & Oncology - [address] [phone] 04/13/2024 14:00 EDT Appointment [facility] Hematology & Oncology - [address] [phone] 04/16/2024 10:00 EST Telemedicine [facility] - [facility] Palliative Care Services [address] [place] [address] [phone] Chichi Woods MD [address] [place] [address], [address] [phone] 04/24/2024 9:00 EST Appointment [facility] Radiology CT Outpatient - [address] [phone] 04/24/2024 11:00 EST Appointment [facility] Breast Imaging - [facility] S [address] [id number] 04/27/2024 12:00 EST Appointment [facility] Hematology & Oncology - [address] [phone] 05/02/2024 15:00 EST Telemedicine [facility] Hematology & Oncology - [address] [phone] Alisson Carreon MD [address] [place] [address], [facility] 2 [place] [phone] 05/04/2024 10:15 EST Ancillary Procedure [facility] Cardiology - [address] [place], [place] [phone] 05/04/2024 11:30 EST Appointment [facility] Hematology & Oncology [address] [address] 05/04/2024 12:00 EST Appointment [facility] Hematology & Oncology [address] [address] 06/12/2024 13:00 EST Appointment [facility] Radiology CT - [address] [address] documented as of this encounter Visit Diagnoses Not on filedocumented in this encounter Care Teams Maintenance Services Dispatcher Relationship Specialty Start Date End Date Maria Fernanda Red MD PCP - General 12/17/08 08/20/09 documented as of this encounter
--- OUTSIDE RECORDS SUMMARY | 2024-03-20 15:15 | XMS_ITS | Encounter Summary ---
Author Organization [facility] Address [address] [place] [address] Care Team Providers Care Cement Side Laster Name Role Phone Unavailable Primary Care Provider Unavailabl e Encounter Details Date Type Department Care Team (Latest Contact Info) Description 07/18/2007 8:19 EST - 07/18/2007 11:59 EST Hospital Encounter [facility] [address] [place] [address] Damian Brooke ANP Discharge Disposition: Auto Discharge [...] System [facility] Interventional Radiology Unit [address] [place] [address] [phone] 04/02/2024 15:15 EDT Office Visit [facility] Surgical Oncology - [address] [phone] Adolfo Carreno MD 111 [facility], Level 2 [place] [phone] 04/05/2024 9:30 EDT Telemedicine [facility] Palliative Care Services [address] [place] [address] [phone] Chichi Woods MD [address] [place] [address] [phone] 04/11/2024 15:00 EDT Telemedicine [facility] Hematology & Oncology - [address] [phone] Alisson Carreon MD [address] [place] [address], Level [address] [place] [phone] 04/13/2024 13:30 EDT Appointment [facility] Hematology & Oncology [address] [phone] 04/13/2024 14:00 EDT Appointment [facility] Hematology & Oncology [address] [phone] 04/16/2024 10:00 EST Telemedicine [facility] Palliative Care Services [address] [place] [address] [phone] Chichi Woods MD [address] [place] [address] [phone] 04/24/2024 9:00 EST Appointment [facility] Radiology CT Outpatient - [address] [address] 04/24/2024 11:00 EST Appointment [facility] Breast Imaging - [address] [phone] 04/27/2024 12:00 EST Appointment [facility] Hematology & Oncology - [address] 107811 05/02/2024 15:00 EST Telemedicine [facility] Hematology & Oncology - [address] [address] Alisson Carreon MD [address] [place] [address], Level 2 [place] [phone] 05/04/2024 10:15 EST Ancillary Procedure [facility] Cardiology - [place] [address] 05/04/2024 11:30 EST Appointment [facility] Hematology & Oncology - [address] [id number] 05/04/2024 12:00 EST Appointment [facility] Hematology & Oncology - [address] 435211 06/12/2024 13:00 EST Appointment [facility] Radiology CT - [address] [phone] documented as of this encounter Visit Diagnoses Not on filedocumented in this encounter
--- OUTSIDE RECORDS SUMMARY | 2024-03-20 15:15 | XMS_ITS | Encounter Summary ---
Author Organization [facility] Address [address] [place] [address] Care Team Providers Care Corduroy Cutting Supervisor Name Role Phone Unavailable Primary Care Provider Unavailabl e Encounter Details Date Type Department Care Team (Latest Contact Info) Description 04/19/2006 6:43 EST - 04/19/2006 11:59 EST Hospital Encounter [facility] Perioperative Services- [facility] [address] [place] [address] Demi Dan MD 2 [facility] Medical Office Building, [address] [place] [address] Discharge Disposition: Home or Self Care Social [...] encounter OR Notes * OR Surgeon - Demi Dan MD - 04/19/2006 0000 EST PROCEDURE REPORT PT TYPE: OPPROC PT LOC: [id number] SERVICE DATE: 04/19/2006 SURGEON: Demi Dan MD PACKAGING TECH: Sandhya Mike MD 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 PROCEDURE: Carbon dioxide (CO2) laser, vaginal dysplasia. ANESTHESIA: General. FINDINGS: First acetic acid was applied to the vaginal mucosa and abnormal areas were seen multifocally, particularly in the right posterior and left aspects from the cervix. There were also some distal lesions on the right and left vaginal mucosa, one spot anteriorly on the vaginal mucosa near thecervix. The cervix had a normal appearance and the vulva had a normal appearance on visualization. The vulva was not colposcoped. NARRATIVE: The patient was taken to the operating room, placed in the supine position after generalanesthesia was administered. She was placed into the [facility] stirrups. The bladder was drained. Wet towels were placed around the vulva. Wet sponge was placed into the rectum, and the colposcope and laser were set up. A laser-approved speculum was placed with suction, and acetic acid was appliedto the entire vaginal mucosa with the speculum being moved to visualize the entire vaginal mucosa. The abnormal areas were lasered with 11 johnson of continuous superpulse and then with a large spot size. We then placed Lugol over the entire vagina and spotted the areas more distal in the vagina and these were lasered as well. So all abnormal-appearing areas with acetic and Lugol were lasered and there was no bleeding. There was a small amount of trauma of the left lateral aspect of the hymen, where there was a tear with no significant bleeding there. That was from the speculum manipulation. Then everything wasremoved including the sponge in the rectum. Patient was awakened and she was placedback in the supine position. She was taken to the recovery room in good condition. There were no complications. The patient tolerated the procedure well. A digital exam was done at the end of the procedure and noted entirely intact vaginal mucosa throughout. ESTIMATED BLOOD LOSS: Minimal. Signed by Demi Dan MD 04/21/2006 17:03 Elham Mike MD Demi Dan MD - Sergio Dan MD A - CS Job ID: [id number] Document ID: [id number] cc: JAMEY Mar MD Tracey S Maurer, MD Sara Packard, MD Stephanie B Stahl, [place] Elisabeth Wegner, MD documented in this encounter Plan of Treatment Upcoming Encounters Date Type Department Care Team (Late st Contact Info) Description 04/02/2024 10:30 EDT Appointment [facility] Interventional Radiology Unit [address] [place] [address] [phone] 04/02/2024 15:15 EDT Office Visit [facility] Surgical Oncology - [address] [phone] Adolfo Carreno MD [address] [place] [address] [phone] 04/05/2024 9:[address] [facility] Palliative Care Services [address] [place] [address] [phone] Chichi Woods MD [address] [place] [address] [phone] 04/11/2024 15:00 EDT Telemedicine [facility] Hematology & Oncology [address] [phone] Alisson Carreon MD [address] [place] [address] [phone] 04/13/2024 13:30 EDT Appointment [facility] Hematology & Oncology [address] 188161 04/13/2024 14:00 EDT Appointment [facility] Hematology & Oncology [address] [phone] 04/16/2024 10:[address] [facility] Palliative Care Services [address] [place] [address] [phone] Chichi Woods MD [address] [place] [address], [address] [phone] 04/24/2024 9:00 EST Appointment [facility] Radiology CT Outpatient - [address] [address] 04/24/2024 11:00 EST Appointment [facility] Breast Imaging - [facility] S [address] [place], [place] [phone] 04/27/2024 12:00 EST Appointment [facility] Hematology & Oncology - [address] [phone] 05/02/2024 15:00 EST Telemedicine [facility] Hematology & Oncology - [address] [phone] Alisson Carreon MD [address] [place] [address], Level 2 [place] [phone] 05/04/2024 10:15 EST Ancillary Procedure [facility] Cardiology [place] [place] [address] 05/04/2024 11:30 EST Appointment [facility] Hematology & Oncology - [address] [phone] 05/04/2024 12:00 EST Appointment [facility] Hematology & Oncology - [address] [phone] 06/12/2024 13:00 EST Appointment [facility] Radiology CT - [address] [phone] documented as of this encounter Visit Diagnoses Not on filedocumented in this encounter
--- OUTSIDE RECORDS SUMMARY | 2024-03-20 15:15 | XMS_ITS | Encounter Summary ---
Author Organization [facility] Address [address] [place] [address] Care Team Providers Care Application Systems Architect Name Role Phone Unavailable Primary Care Provider Unavailabl e Encounter Details Date Type Department Care Team (Late st Contact Info) Description 07/13/2006 11:19 EST - 07/13/2006 11:59 EST Hospital Encounter [address] [address] Quita Babb PA-C [address] [place] [address] [phone] Discharge Disposition: Auto Discharge Social History Tobacco [...] [facility] Interventional Radiology Unit [address] [place] [address] [phone] 04/02/2024 15:15 EDT Office Visit [facility] Surgical Oncology - [address] [address] Adolfo Carreno MD 111 [facility] 2 [place] [phone] 04/05/2024 9:30 EDT Telemedicine [facility] Services [address] [place] [address] [phone] Chichi Woods MD [address] [place] [address] [phone] 04/11/2024 15:00 EDT Telemedicine [facility] Hematology & Oncology - [address] [phone] Alisson Carreon MD [address] [place] [address] 2 [place] [phone] 04/13/2024 13:30 EDT Appointment [facility] Hematology & Oncology - [address] [phone] 04/13/2024 14:00 EDT Appointment [facility] Hematology & Oncology - [address] [phone] 04/16/2024 10:00 EST Telemedicine [facility] [address] [place] [address] Chichi Woods MD [address] [place] [address] [phone] 04/24/2024 9:00 EST Appointment [facility] Radiology CT Outpatient - [address] [phone] 04/24/2024 11:00 EST Appointment [facility] Breast Imaging - [address] [phone] 04/27/2024 12:00 EST Appointment [facility] Hematology & Oncology [address] [address] 05/02/2024 15:00 EST Telemedicine [facility] Hematology & Oncology [address] [address] Alisson Carreon MD [address] [place] [address], [facility] Level 2 [place] [phone] 05/04/2024 10:15 EST Ancillary Procedure [facility] Cardiology [place] [address] [place] [address] 05/04/2024 11:30 EST Appointment [facility] Hematology & Oncology [address] [address] 05/04/2024 12:00 EST Appointment [facility] Hematology & Oncology [address] [address] 06/12/2024 13:00 EST Appointment [facility] Radiology CT - [address] [phone] documented as of this encounter Procedures Procedure Name Priority Date/Time Associated Diagnosis Comments KNEE 3 VIEWS 07/13/2006 11:59 EST SED RATE Routine 07/13/2006 11:28 EST HOMOCYSTEINE Routine 07/13/2006 11:28 EST HEPATIC FUNCTION PANEL (ALB,ALK PHOS,ALT,AST,DBIL,TOT WILY,TOT PROT) Routine 07/13/2006 11:28 EST LIPID PROFILE (INCLUDES CHOLESTEROL, TRIGLYCERIDES, HDL, LDL) Routine 07/13/2006 11:28 EST documented in this encounter Results * KNEE 3 VIEWS (07/13/2006 11:59 EST) Anatomical Region Laterality Modality Other 07/13/2006 11:5 9 EST Narrative 12/21/2008 3:23 EDT LEFT KNEE PAIN LEFT KNEE 3 VIEWS HISTORY: Left knee pain s/p contusion. ??Rule out patellar fracture. FINDINGS: An AP, a lateral view and an axial view of the left knee were obtained. There is no effusion. ??There is no fracture. ??The patella has a normal appearance. There is no evidence of degenerative joint disease. IMPRESSION: Normal x-rays of the left knee. D: ??07/13/06 T: ??07/15/06 /jv Procedure Note Maile Toussaint MD - 12/21/2008 LEFT KNEE PAIN LEFT KNEE 3 VIEWS HISTORY: Left knee pain s/p contusion. Rule out patellar fracture. FINDINGS: An AP, a lateral view and an axial view of the left knee were obtained. There is no effusion. There is no fracture. The patella has a normal appearance. There is no evidence of degenerative joint disease. IMPRESSION: Normal x-rays of the left knee. /jv Maria Fernanda Red MD IMG DIAGNOSTIC IMAGI NG ORDERABLES * SED. RATE:ORION (07/13/2006 11:28 EST) [facility] Sed. Rate Orion 7 0 - 20 mm/hr [facility] 07/13/2006 11:2 8 EST 07/13/2006 11:45 EST Maria Fernanda Red MD HEMATOLOGY & PF4 ORD ERABLES [facility] [address] [place] [address] * LIPID PROFILE (INCLUDES CHOLESTEROL, TRIGLYCERIDES, HDL, LDL) (07/13/2006 11:28 EST) [facility] Cholesterol 226 mg/dl [facility] Comment: Desirable:<200 Borderline:200-239 High Risk:>qo=442 Triglycerides 102 35 - 160 mg/dl [facility] HDL 66 mg/dl [facility] Comment: Highly Desirable:>60 Desirable:35-60 High Risk:<35 LDL, Calculated 140 mg/dl [facility] Comment: Desirable:<130 Borderline:130-159 High Risk:>oo=550 Chol/HDL Ratio 3.4 [facility] Fasting? Yes [facility] 07/13/2006 11:2 8 EST 07/13/2006 11:45 EST Maria Fernanda Red MD CHEMISTRY & BLOOD MA S ORDERABLES Performing Organization Address [facility] de Phone Number [facility] [address] [place] [address] * LIVER FUNCTION TESTS (07/13/2006 11:28 EST) Albumin 4.6 3.4 - 4.9 g/dl [facility] Total Protein 7.5 6.5 - 8.3 g/dl [facility] Total Alkaline Phosphatase 79 38 - 126 U/L [facility] ALT 38 9 - 52 U/L [facility] AST 31 15 - 46 U/L [facility] Unconjugated Bilirubin 0.8 0.1 - 1.1 mg/dl [facility] Conjugated Bilirubin 0.0 0.0 - 0.3 mg/dl [facility] Bilirubin, Total 0.6 0.2 - 1.3 mg/dl [facility] 07/13/2006 11:2 8 EST 07/13/2006 11:45 EST Maria Fernanda Red MD CHEMISTRY & BLOOD MA S ORDERABLES Performing Organization Address [facility] de Phone Number [facility] [address] [place] [address] * HOMOCYSTEINE (07/13/2006 11:28 EST) Homocysteine 7.8 5.0 - 13.9 umol/L [facility] Comment: Reference range may not apply to non-fasting samples. It is not recommended that EDTA and serum from the same patient be used interchangeably. Serum concentrations have been observed to be up to 10% higher than EDTA plasma. ??Reference range may not apply to serum results. 07/13/2006 11:2 8 EST 07/13/2006 11:45 EST Maria Fernanda Red MD CHEMISTRY & BLOOD GA S ORDERABLES Performing Organization Address City/State/[facility] Co de Phone Number [facility] [address] [place] [address] documented in this encounter Visit Diagnoses Not on filedocumented in this encounter
--- OUTSIDE RECORDS SUMMARY | 2024-03-20 15:15 | XMS_ITS | Encounter Summary ---
Author Organization [facility] Address [address] [place] [address] Care Team Providers Care Tube Rebuilder Name Role Phone None, Provider Primary Care Provider Maria Fernanda Bender MD Primary Care Provider Unavailab kovacs Encounter Details Date Type Department Care Team (Late st Contact Info) Description 08/17/2007 Results Only [facility] - [facility] [address] [place] [address] Maria Fernanda Red MD Social History Tobacco [facility] [address] [place] [phone] 04/02/2024 15:15 EDT Office Visit [facility] Surgical Oncology - [address] [address] Adolfo Carreno MD 111 [facility], Level [address] [place] [phone] 04/05/2024 9:30 EDT Telemedicine [facility] [address] [place], [place] 196561 Chichi Woods MD [address] [place] [address] [phone] 04/11/2024 15:00 EDT Telemedicine [facility] Hematology & Oncology [address] [phone] Alisson Carreon MD [address] [place] [address], Level [address] [place] [phone] 04/13/2024 13:30 EDT Appointment [facility] Hematology & Oncology [address] [phone] 04/13/2024 14:00 EDT Appointment [facility] Hematology & Oncology [address] [phone] 04/16/2024 10:00 EST Telemedicine [facility] - [facility] Palliative Care Services [address] [place] [address] [phone] Chichi Woods MD [address] [place] [address] [phone] 04/24/2024 9:00 EST Appointment [facility] Radiology CT Outpatient - [address] [phone] 04/24/2024 11:00 EST Appointment [facility] Breast Imaging - [facility] S [address] [phone] 04/27/2024 12:00 EST Appointment [facility] Hematology & Oncology - [address] 632321 05/02/2024 15:00 EST Telemedicine [facility] Hematology & Oncology - [address] [phone] Alisson Carreon MD 111 [facility], [facility], Level [address] [place] [phone] 05/04/2024 10:15 EST Ancillary Procedure [facility] Cardiology - [address] [place] [address] 05/04/2024 11:30 EST Appointment [facility] Hematology & Oncology - [facility] [address] [place], [place] [phone] 05/04/2024 12:00 EST Appointment [facility] Hematology & Oncology - [address] [phone] 06/12/2024 13:00 EST Appointment [facility] Radiology CT - [facility] [address] [place], [place] [phone] documented as of this encounter Procedures Procedure Name Priority Date/Time Associated Diagnosis Comments HOLD PURPLE TOP Routine 08/17/2007 12:20 EST JODY TITER Routine 08/17/2007 12:20 EST CHLAMYDIA/GC AMPLIFIED PROBE Routine 08/17/2007 12:20 EST HIV 1/2 ANTIGEN AND ANTIBODY, 4TH GENERATION Routine 08/17/2007 12:20 EST ANTI NUCLEAR AB (JODY), IFA Routine 08/17/2007 12:20 EST documented in this encounter Results * CHLAMYDIA/GC AMPLIFIED PROBE (08/17/2007 12:20 EST) Specimen Description Other Site not indicated, please indicate site [facility] Result No Chlamydia trachomatis or Neisseria gonorrhoeae DNA detected by data acquisition technician mediated amplification. [facility] Report Status Final [id number] [facility] 08/17/2007 12:2 0 EST 08/17/2007 21:17 EST Maria Fernanda Red MD MICROBIOLOGY - GENER AL ORDERABLES Performing Organization Address [facility] de Phone Number [facility] [address] [place] [address] * HOLD PURPLE TOP (08/17/2007 12:20 EST) Pathologist [facility] Hold Purple Top EDTA for hematology will be discarded after 48 hours, differential not available after 12 hours. [facility] 08/17/2007 12:2 0 EST 08/17/2007 20:51 EST Maria Fernanda Red MD LAB INFO SERVICE AND SUPPORT & PHONE RESULT Performing Organization Address [facility] de Phone Number [facility] [address] [place] [address] * HIV ANTIBODY (08/17/2007 12:20 EST) Pathologist [facility] HIV 1/2 Antibody NONREACT. NR [facility] 08/17/2007 12:2 0 EST 08/17/2007 20:51 EST Maria Fernanda Red MD IMMUNOLOGY AND SEROL OGY ORDERABLES Performing Organization Address [facility] de Phone Number [facility] [address] [place] [address] * (ABNORMAL) JODY TITER (08/17/2007 12:20 EST) Pathologist [facility] JODY Titer 640(H) 0 - 40 dils [facility] Comment: Diffuse and speckled JODY patterns. Result is equal to or greater than 640 dils. 08/17/2007 12:2 0 EST 08/17/2007 20:51 EST Maria Fernanda Red MD IMMUNOLOGY AND SEROL OGY ORDERABLES Performing Organization Address [facility] de Phone Number [facility] [address] [place] [address] * ANTI NUCLEAR ANTIBODY (08/17/2007 12:20 EST) Pathologist [facility] Anti Nuclear Ab Positive at 40 dils, titer to follow. 0 - 40 Dils [facility] 08/17/2007 12:2 0 EST 08/17/2007 20:51 EST Maria Fernanda Red MD IMMUNOLOGY AND EFRA ENG ORDERABLES Performing Organization Address City/State/[facility] Co de Phone Number [facility] [address] [address] documented in this encounter Visit Diagnoses Not on filedocumented in this encounter Care Teams Tube Rebuilder Relationship Specialty Start Date End Date None, Provider PCP - General 08/21/09 01/05/11 Maria Fernanda Red MD PCP - General 12/17/08 08/20/09 documented as of this encounter
--- OUTSIDE RECORDS SUMMARY | 2024-03-20 15:15 | XMS_ITS | Encounter Summary ---
Author Organization [facility] Address [address] [place] [address] Care Team Providers Care Director Perioperative Name Role Phone None, Provider Primary Care Provider Maria Fernanda Bender MD Primary Care Provider Unavailab kovacs Encounter Details Date Type Department Care Team (Late st Contact Info) Description 10/13/2006 Results Only [facility] Pelvic Medicine and Reconstructive Surgery - Medical Office [facility] [address] [place] [address] [phone] Lizabeth Dan MD [address] [place] [address] Medical Office [facility], [address] [phone] Social History Tobacco Use Types Packs/Day Years [...] [facility] [address] [place] [address] [phone] 04/02/2024 15:15 EDT Office Visit [facility] Surgical Oncology - [address] [address] Adolfo Carreno MD 111 [facility], Level [address] [place] [phone] 04/05/2024 9:[address] [facility] Palliative Care Services [address] [place] [address] [phone] Chichi Woods MD [address] [place] [phone] 04/11/2024 15:00 EDT Telemedicine [facility] Hematology & Oncology - [address] [phone] Alisson Carreon MD [address] [place] [address] 2 [place] [phone] 04/13/2024 13:30 EDT Appointment [facility] Hematology & Oncology - [address] [phone] 04/13/2024 14:00 EDT Appointment [facility] Hematology & Oncology [address] 789221 04/16/2024 10:[address] [facility] Palliative Care Services [address] [place] [address] [phone] Chichi Woods MD [address] [place] [phone] 04/24/2024 9:00 EST Appointment [facility] Radiology CT Outpatient - [address] [phone] 04/24/2024 11:00 EST Appointment [facility] Breast Imaging - [address] 446291 04/27/2024 12:00 EST Appointment [facility] Hematology & Oncology - [address] [address] 05/02/2024 15:00 EST Telemedicine [facility] Hematology & Oncology - [address] [address] Alisson Carreon MD [address] [place] [address], [facility], Level [address] [place] [phone] 05/04/2024 10:15 EST Ancillary Procedure [facility] Cardiology - [address] [place] [address] 05/04/2024 11:30 EST Appointment [facility] Hematology & Oncology [address] [address] 05/04/2024 12:00 EST Appointment [facility] Hematology & Oncology [address] [address] 06/12/2024 13:00 EST Appointment [facility] Radiology CT - [address] [phone] documented as of this encounter Procedures Procedure Name Priority Date/Time Associated Diagnosis Comments HPV DETECTION, HIGH RISK TYPES Routine 10/13/2006 11:56 EDT CYTOPATHOLOGY Routine 10/13/2006 0:00 EDT SURGICAL PATHOLOGY Routine 10/13/2006 0: 00 EDT documented in this encounter Results * HUMAN PAPILLOMA VIRUS DNA TEST (10/13/2006 11:56 EDT) Specimen Description Cervix, ThinPrep vial [facility] Result Positive for one or more of HPV types 16,18,31,33,35 ,39,45,51,52,5 6,58,59, or 68. These high/intermedi ate risk HPV types are associated with dysplasia and some cervical cancers. [facility] Report Status Final [id number] [facility] 10/13/2006 11:5 6 EDT 10/20/2006 11:56 EDT Lizabeth Dan MD MICROBIOLOGY - GENE RAL ORDERABLES [facility] [address] [place] [address] * CYTOPATHOLOGY (10/13/2006 0:00 EDT) Pathology Report: CYTOPATHOLOGY REPORT Reports generated via electronic interface contain original data; however they are lacking the format of the original report. Caution should be taken when reading/interpreti ng unformatted reports. Name: ? SUNSHINE SMITH ? Accession #: ? [id number] : ? 1960 (Age: 46) ??F ?Collect Date: ? 10/13/2006 Location: ? [facility] ? Receive Date: ? 10/14/2006 Provider: ?LIZABETH DAN MD Copy to: ? Specimen/Source: ?ThinPrep Pap Test, Vagina/Cervix, processed on [employer] ThinPrep Imaging System, with manual evaluation Last Menstrual Period: ? Hormonal/Contracep tive Status: ? Yes: Vagifem Previous Gynecologic Pathology: ? VAIN Treatment History: ? Laser therapy: For Vain Other: ? HPVDX - HPV testing requested regardless of diagnosis on current ThinPrep Pap test. ? SPECIMEN ADEQUACY ? Satisfactory for Evaluation - transformation zone component absent GENERAL CATEGORIZATION ? Epithelial Cell Abnormality INTERPRETATION ? Squamous Cell Abnormality - Low grade squamous intraepithelial lesion (LSIL). EDUCATIONAL NOTES/RECOMMENDATI ONS ? [facility] recommends following the 2001 Consensus Guidelines for the Management of Women with Cervical Cytological Abnormalities (CY,2002;287:212 0-9). Management algorithms have been distributed by [facility] and are available online at www.ASCCP.org. ? Document reviewed and electronically signed by: ? Doris Ahumada MD ? Report Date: ??10/19/2006 15:44 End of Report [facility] 10/13/2006 10/14/2006 Lizabeth Dan MD PATHOLOGY ORDERABLE S Performing Organization Address City/State/[facility] Co de Phone Number [facility] [address] [place] [address] * SURGICAL PATHOLOGY (10/13/2006 0:00 EDT) Pathology Report: SURGICAL PATHOLOGY REPORT Reports generated via electronic interface contain original data; however they are lacking the format of the original report. Caution should be taken when reading/interpreting unformatted reports. Name: ? SUNSHINE SMITH ? Accession #: ? [id number] ? : ? 1960 (Age: 46) ??F ? Collect Date: ? 10/13/2006 ? Location: ? [facility] ? Receive Date: ? 10/14/2006 ? Provider: LIZABETH DAN MD Copy to: ? Final Pathologic Diagnosis: ? 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 ??See comment. Comment: ? This case was reviewed at intradepartmental consultation conference. ?? (Dr. Eubanks)/[facility] Document reviewed and electronically signed by: IRMA HAWLEY MD Report ??Date: 10/18/2006 16:48 By the signature above, the attending physician certifies that he/she has personally conducted a gross and/or microscopic examination of the described specimens and rendered or confirmed the above diagnosis. Specimen(s) Received: ? Bx of L mid vag wall Clinical History: ? Slightly Lugol negative area; hx of VAIN II-III, S/P laser 6 months ago, PAP does not extend today as well, on Vagifem, LMP: PM; r/o dysplasia; clinical diagnosis code: 623.0 Gross Description: ? Received in formalin labelled O'José are three moura-pink friable soft tissue fragments ranging from 0.2 x 0.1 x 0.1 cm to 0.3 x 0.2 x 0.2 cm. ??The specimen is entirely submitted in one cassette. (Marek Parsons)/[facility] End of Report [facility] 10/13/2006 10/14/2006 10: 39 EDT Lizabeth Dan MD PATHOLOGY ORDERABLE S [facility] [address] [place] [address] documented in this encounter Visit Diagnoses Not on filedocumented in this encounter Care Teams Director Perioperative Relationship Specialty Start Date End Date None, Provider PCP - General 08/21/09 01/05/11 Maria Fernanda Red MD PCP - General 12/17/08 08/20/09 documented as of this encounter
--- OUTSIDE RECORDS SUMMARY | 2024-03-20 15:15 | XMS_ITS | Encounter Summary ---
Author Organization [facility] Address [address] [place] [address] Care Team Providers Care Crater And Packer Name Role Phone None, Provider Primary Care Provider Maria Fernanda Bender MD Primary Care Provider Unavailab kovacs Encounter Details Date Type Department Care Team (Late st Contact Info) Description 02/15/2006 Results Only [facility] OBGYN Services - [address] [address] Mitzi Boateng FNP Social History Tobacco Use [...] [facility] Interventional Radiology Unit [address] [place] [address] [phone] 04/02/2024 15:15 EDT Office Visit [facility] Surgical Oncology - [address] [phone] Adolfo Carreno MD 111 [facility], Level 2 [place] [phone] 04/05/2024 9:30 EDT Telemedicine [facility] Palliative Care Services [address] [place] [address] [phone] Chichi Woods MD [address] [place] [address] [phone] 04/11/2024 15:00 EDT Telemedicine [facility] Hematology & Oncology [address] 073411 Alisson Carreon MD [address] [place] [address] Level 2 [place] [phone] 04/13/2024 13:30 EDT Appointment [facility] Hematology & Oncology [address] 163171 04/13/2024 14:00 EDT Appointment [facility] Hematology & Oncology [address] [phone] 04/16/2024 10:00 EST Telemedicine [facility] - [facility] Palliative Care Services [address] [place] [address] 136591 Chichi Woods MD [address] [place] [address] [phone] 04/24/2024 9:00 EST Appointment [facility] Radiology CT Outpatient - [address] 576221 04/24/2024 11:00 EST Appointment [facility] Breast Imaging - [address] 044891 04/27/2024 12:00 EST Appointment [facility] Hematology & Oncology - [address] 091061 05/02/2024 15:00 EST Telemedicine [facility] Hematology & Oncology - [address] [address] Alisson Carreon MD 111 [facility], [facility], Level 2 [place] [phone] 05/04/2024 10:15 EST Ancillary Procedure [facility] Cardiology - [address] [place] [address] 05/04/2024 11:30 EST Appointment [facility] Hematology & Oncology - [facility] [address] [place], [place] 244751 05/04/2024 12:00 EST Appointment [facility] Hematology & Oncology [address] 025591 06/12/2024 13:00 EST Appointment [facility] Radiology CT - [facility] [address] [place], [place] [phone] documented as of this encounter Procedures Procedure Name Priority Date/Time Associated Diagnosis Comments CYTOPATHOLOGY Routine 02/15/2006 0:00 EDT SURGICAL PATHOLOGY Routine 02/15/2006 0:00 EDT documented in this encounter Results * CYTOPATHOLOGY (02/15/2006 0:00 EDT) Pathology Report: CYTOPATHOLOGY REPORT Reports generated via electronic interface contain original data; however they are lacking the format of the original report. Caution should be taken when reading/interpreti ng unformatted reports. Name: ? SUNSHINE SMITH ? Accession #: ? [id number] : ? 1960 (Age: 45) ??F ?Collect Date: ? 02/15/2006 Location: ? [facility] ? Receive Date: ? 02/16/2006 Provider: ?MITZI BOATENG [facility] Copy to: ? Specimen/Source: ?ThinPrep Pap Test, Cervix/Endocervix, processed on [employer] ThinPrep Imaging System, with manual evaluation Last Menstrual Period: ? Menstrual/Pregnanc y Status: ? Menopausal Previous Gynecologic Pathology: ? VAIN: 2 ? SPECIMEN ADEQUACY ? Satisfactory for Evaluation - transformation zone component present GENERAL CATEGORIZATION ? Epithelial Cell Abnormality INTERPRETATION ? Squamous Cell Abnormality - Atypical squamous cells, undetermined significance. Fungal organisms present morphologically consistent with Padmini species. EDUCATIONAL NOTES/RECOMMENDATI ONS ? [facility] recommends following the 2001 Consensus Guidelines for the Management of Women with Cervical Cytological Abnormalities (CY,2002;287:212 0-9). Management algorithms have been distributed by [facility] and are available online at www.[facility].org. ? Document reviewed and electronically signed by: ? ALTHEA LANCASTER MD [facility] ? Report Date: ??02/21/2006 11:16 End of Report CHINCHILLAFELIX CALDERA 02/15/2006 02/16/2006 Mitzi Boateng [facility] PATHOLOGY ORDERABLES Performing Organization Address City/State/[facility] Co de Phone Number RENÉE OLGA CALDERA [address] [place] [address] * SURGICAL PATHOLOGY (02/15/2006 0:00 EDT) Pathology Report: SURGICAL PATHOLOGY REPORT Reports generated via electronic interface contain original data; however they are lacking the format of the original report. Caution should be taken when reading/interpreting unformatted reports. Name: ? SUNSHINE SMITH ? Accession #: ? [id number] ? : ? 1960 (Age: 45) ??F ? Collect Date: ? 02/15/2006 ? Location: ? [facility] ? Receive Date: ? 02/16/2006 ? Provider: MITZI CONCEPCION Copy to: ? Final Pathologic Diagnosis: ? 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 ??See comment. ?? Comment: ? This case has been reviewed at intradepartmental consultation conference. (Dr. Celaya)/[facility] Document reviewed and electronically signed by: Melyssa Celaya MD Report ??Date: 02/17/2006 19:47 By the signature above, the attending physician certifies that he/she has personally conducted a gross and/or microscopic examination of the described specimens and rendered or confirmed the above diagnosis. Specimen(s) Received: ? Vagina Clinical History: ? H/O VAIN 2; LMP: menopause; clinical diagnosis code: 624.8 Gross Description: ? Received in formalin labelled O' José and vagina bx are three moura-pink biopsies which vary in size from 0.3 x 0.1 x 0.1 cm up to 0.3 x 0.2 x 0.1 cm. ??The specimens are submitted intact in one cassette. ??(Rebecca Sylvester)/[facility] End of Report RENÉE CALDERA 02/15/2006 02/16/2006 9:2 5 EDT Mitzi PADILLAP PATHOLOGY ORDERABLES RENÉE CALDERA [address] [place] [address] documented in this encounter Visit Diagnoses Not on filedocumented in this encounter Care Teams Crater And Packer Relationship Specialty Start Date End Date None, Provider PCP - General 08/21/09 01/05/11 Maria Fernanda Red MD PCP - General 12/17/08 08/20/09 documented as of this encounter
--- OUTSIDE RECORDS SUMMARY | 2024-03-20 15:15 | XMS_ITS | Encounter Summary ---
Author Organization [facility] Address [address] [place] [address] Care Team Providers Care Recycling Manager Name Role Phone Unavailable Primary Care Provider Unavailabl e Encounter Details Date Type Department Care Team (Latest Contact Info) Description 04/02/2006 16:59 EDT Hospital Encounter [facility] - Other [address] [place] [phone] Alesia Morales MD Discharge Disposition: Home or Self Care [...] [facility] Interventional Radiology Unit [address] [place], [place] 619581 04/02/2024 15:15 EDT Office Visit [facility] Surgical Oncology - [address] [phone] Adolfo Carreno MD 111 [facility], Level 2 [place] [phone] 04/05/2024 9:30 EDT Telemedicine [facility] Palliative Care Services [address] [place] [address] [phone] Chichi Woods MD [address] [place] [address] [phone] 04/11/2024 15:00 EDT Telemedicine [facility] Hematology & Oncology [address] [phone] Alisson Carreon MD [address] [place] [address], Level 2 [place] [phone] 04/13/2024 13:30 EDT Appointment [facility] Hematology & Oncology [address] 728171 04/13/2024 14:00 EDT Appointment [facility] Hematology & Oncology [address] [phone] 04/16/2024 10:00 EST Telemedicine [facility] Palliative Care Services [address] [place] [address] [phone] Chichi Woods MD [address] [place] [address] [phone] 04/24/2024 9:00 EST Appointment [facility] Radiology CT Outpatient - [address] [address] 04/24/2024 11:00 EST Appointment [facility] Breast Imaging - [address] 117281 04/27/2024 12:00 EST Appointment [facility] Hematology & Oncology - [address] 655481 05/02/2024 15:00 EST Telemedicine [facility] Hematology & Oncology - [address] 207791 Alisson Carreon MD 111 [facility], Level 2 [place] [phone] 05/04/2024 10:15 EST Ancillary Procedure [facility] Cardiology - [address] [place], [place] [phone] 05/04/2024 11:30 EST Appointment [facility] Hematology & Oncology - [facility] [address] [place], [place] 598791 05/04/2024 12:00 EST Appointment [facility] Hematology & Oncology [facility] [address] [place], [place] 774881 06/12/2024 13:00 EST Appointment [facility] Radiology CT - [facility] [address] [place], [place] [phone] documented as of this encounter Procedures Procedure Name Priority Date/Time Associated Diagnosis Comments HSV 1 AND 2 ANTIBODY, IGG Routine 04/02/2006 16:00 EDT HSV (ONLY) CULTURE Routine 04/02/2006 16 :00 EDT documented in this encounter Results * HSV (ONLY) CULTURE (04/02/2006 16:00 EDT) Specimen Description Vulva [facility] Result HERPES SIMPLEX VIRUS TYPE II RECOVERED [facility] Report Status Final [id number] [facility] 04/02/2006 16:0 0 EDT 04/02/2006 18:34 EDT Alesia Morales MD MICROBIOLOGY - GEN ERAL ORDERABLES [facility] [address] [place] [address] * HSV 1 AND 2 ANTIBODY, IGG (04/02/2006 16:00 EDT) HSV 1 Ab, IgG Negative(Note ) -- EXPECTED VALUES -- ? Negative ? [facility] HSV2 IgG Ab Negative(Note ) -- EXPECTED VALUES -- ? Negative ? Test Performed by: ? [facility] Dpt of Lab Med and Pathology ? [address] , [place] [address] ? Food Technology Teacher: Noelle Hawkins M.D. ? [facility] 04/02/2006 16:0 0 EDT 04/02/2006 17:26 EDT Alesia Morales MD IMMUNOLOGY AND SER OLOGY ORDERABLES Performing Organization Address City/State/[facility] Co de Phone Number [facility] [address] [place] [address] documented in this encounter Visit Diagnoses Not on filedocumented in this encounter
--- OUTSIDE RECORDS SUMMARY | 2024-03-20 15:15 | XMS_ITS | Encounter Summary ---
Author Organization [facility] Address [address] [place] [address] Care Team Providers Care Light Rail Signal Technician Name Role Phone Unavailable Primary Care Provider Unavailabl e Encounter Details Date Type Department Care Team (Latest Contact Info) Description 07/18/2007 11:32 EST - 07/18/2007 11:59 EST Hospital Encounter [facility] - Other [address] [place] [phone] Maria Fernanda Red MD Hayden, Robin, ANP Discharge Disposition: Auto Discharge Social History [...] EDT Appointment [facility] Interventional Radiology Unit [address] [place] [address] [phone] 04/02/2024 15:15 EDT Office Visit [facility] Surgical Oncology - [address] [phone] Adolfo Carreno MD 111 [facility], Level 2 [place] [phone] 04/05/2024 9:30 EDT Telemedicine [facility] Palliative Care Services [address] [place] [address] [phone] Chichi Woods MD [address] [place] [address] [phone] 04/11/2024 15:00 EDT Telemedicine [facility] Hematology & Oncology - [address] 071671 Alisson Carreon MD [address] [place] [address], Level [address] [place] [phone] 04/13/2024 13:30 EDT Appointment [facility] Hematology & Oncology [address] [place] [address] [phone] 04/13/2024 14:00 EDT Appointment [facility] Hematology & Oncology [address] [place] [address] [phone] 04/16/2024 10:00 EST Telemedicine [facility] Palliative Care Services [address] [place] [address] 224491 Chichi Woods MD [address] [place] [address] [phone] 04/24/2024 9:00 EST Appointment [facility] Radiology CT Outpatient - [address] [id number] 04/24/2024 11:00 EST Appointment [facility] Breast Imaging - [address] 514221 04/27/2024 12:00 EST Appointment [facility] Hematology & Oncology [address] [place] [address] [phone] 05/02/2024 15:00 EST Telemedicine [facility] Hematology & Oncology [address] [place] [address] [address] Alisson Carreon MD 111 [facility], Level 2 [place] [phone] 05/04/2024 10:15 EST Ancillary Procedure [facility] Cardiology - [address] [place] [address] 05/04/2024 11:30 EST Appointment [facility] Hematology & Oncology [address] 265491 05/04/2024 12:00 EST Appointment [facility] Hematology Oncology [address] 901881 06/12/2024 13:00 EST Appointment [facility] Radiology CT - [address] [phone] documented as of this encounter Procedures Procedure Name Priority Date/Time Associated Diagnosis Comments OR MAMMO SCREENING DIGITAL 07/18/2007 11:58 EST documented in this encounter Results * OR MAMMO SCREENING DIGITAL (07/18/2007 11:58 EST) Anatomical Region Laterality Modality Other 07/18/2007 11:5 8 EST Narrative 12/02/2008 1:51 EDT ROUTINE DATE AND TIME PER PT Comparison is made to films from 06/17/2006 (left) and films from 06/14/2006 (left) and films from 06/16/2004 and films from 06/10/2004 and films from 04/10/2003. Left Breast Findings: (CAD used to interpret routine digital): There are scattered fibroglandular densities. A normal-appearing retro-pectoral implant is present. No significant masses, calcifications or other abnormalities are seen. IMPRESSION: LEFT BREAST - CATEGORY 1 A normal-appearing retro-pectoral implant. Negative, no evidence of malignancy. Normal interval follow-up is recommended in 12 months. OVERALL ASSESSMENT - NEGATIVE END OF IMPRESSION The patient will be notified of her/his breast imaging results via a lay letter from Radiology. ??Radiology will contact the patient directly regarding any findings which require additional imaging (Category 0) at this time. Procedure Note Nikkie Hernandez MD - 12/02/2008 ROUTINE DATE AND TIME PER PT Comparison is made to films from 06/17/2006 (left) and films from 06/14/2006 (left) and films from 06/16/2004 and films from 06/10/2004 and films from 04/10/2003. Left Breast Findings: (CAD used to interpret routine digital): There are scattered fibroglandular densities. A normal-appearing retro-pectoral implant is present. No significant masses, calcifications or other abnormalities are seen. IMPRESSION: LEFT BREAST - CATEGORY 1 A normal-appearing retro-pectoral implant. Negative, no evidence of malignancy. Normal interval follow-up is recommended in 12 months. OVERALL ASSESSMENT - NEGATIVE END OF IMPRESSION The patient will be notified of her/his breast imaging results via a lay letter from Radiology. Radiology will contact the patient directly regarding any findings which require additional imaging (Category 0) at this time. Maria Fernanda Red MD IMG MAMMOGRAPHY JAIMEE ACOSTA documented in this encounter Visit Diagnoses Not on filedocumented in this encounter
--- OUTSIDE RECORDS SUMMARY | 2024-03-20 15:15 | XMS_ITS | Encounter Summary ---
Author Organization [facility] Address [address] [place] [address] Care Team Providers Care Certified Emergency Vehicle Technician Name Role Phone Unavailable Primary Care Provider Unavailabl e Encounter Details Date Type Department Care Team (Latest Contact Info) Description 06/17/2006 11:34 EST - 06/17/2006 11:59 EST Hospital Encounter [facility] [address] [place] [address] Maria Fernanda Red MD Discharge Disposition: Auto [...] [facility] Interventional Radiology Unit [address] [place] [address] 04/02/2024 15:15 EDT Office Visit [facility] Surgical Oncology - [address] [phone] Adolfo Carreno MD 111 [facility], Level 2 [place] [phone] 04/05/2024 9:30 EDT Telemedicine [facility] Palliative Care Services [address] [place] [address] [phone] Chichi Woods MD [address] [place] [address] [phone] 04/11/2024 15:00 EDT Telemedicine [facility] Hematology & Oncology - [address] [phone] Alisson Carreon MD [address] [place] [address], [address] [place] [phone] 04/13/2024 13:30 EDT Appointment [facility] Hematology & Oncology [address] [phone] 04/13/2024 14:00 EDT Appointment [facility] Hematology & Oncology [address] [phone] 04/16/2024 10:00 EST Telemedicine [facility] Palliative Care Services [address] [place] [address] [phone] Chichi Woods MD [address] [place] [address] [phone] 04/24/2024 9:00 EST Appointment [facility] Radiology CT Outpatient - [address] [address] 04/24/2024 11:00 EST Appointment [facility] Breast Imaging - [address] [phone] 04/27/2024 12:00 EST Appointment [facility] Hematology & Oncology - [address] [phone] 05/02/2024 15:00 EST Telemedicine [facility] Hematology & Oncology - [address] [address] Alisson Carreon MD 111 [facility], Level [address] [place] [phone] 05/04/2024 10:15 EST Ancillary Procedure [facility] Cardiology - [address] [place] [address] 05/04/2024 11:30 EST Appointment [facility] Hematology & Oncology - [address] [phone] 05/04/2024 12:00 EST Appointment [facility] Hematology & Oncology [address] 026581 06/12/2024 13:00 EST Appointment [facility] Radiology CT - [address] 948101 documented as of this encounter Procedures Procedure Name Priority Date/Time Associated Diagnosis Comments TN MAMMO SCREENING DIGITAL 06/17/2006 11:54 EST documented in this encounter Results * TN MAMMO SCREENING DIGITAL (06/17/2006 11:54 EST) Anatomical Region Laterality Modality Other 06/17/2006 11:5 4 EST Narrative 12/21/2008 5:50 EDT ROUTINE Comparison is made to films from 06/14/2006 (left) and films from 06/11/2005 (left) and films from 06/16/2004 and films from 06/10/2004 and films from 11/21/2003 and films from 11/13/2003 and films from [...] interval follow-up is recommended in 12 months. Results and recommendations for follow-up were discussed with the patient by the technologist at the time of the exam. OVERALL ASSESSMENT - NEGATIVE END OF IMPRESSION Procedure Note Betzaida Tracy MD - 12/21/2008 ROUTINE Comparison is made to films from 06/14/2006 (left) and films from 06/11/2005 (left) and films from 06/16/2004 and films from 06/10/2004 and films from 11/21/2003 and films from 11/13/2003 and films from [...] interval follow-up is recommended in 12 months. Results and recommendations for follow-up were discussed with the patient by the technologist at the time of the exam. OVERALL ASSESSMENT - NEGATIVE END OF IMPRESSION Maria Fernanda Red MD IMG MAMMOGRAPHY JAIMEE ACOSTA documented in this encounter Visit Diagnoses Not on filedocumented in this encounter
--- OUTSIDE RECORDS SUMMARY | 2024-03-20 15:15 | XMS_ITS | Encounter Summary ---
Author Organization [facility] Address [address] [place] [address] Care Team Providers Care Linoleum Layer Apprentice Name Role Phone Unavailable Primary Care Provider Unavailabl e Encounter Details Date Type Department Care Team (Latest Contact Info) Description 08/01/2006 21:51 EST Hospital Encounter [facility] - Other [address] [place] [address] Hugo Dalton MD [address] [place] [phone] Discharge Disposition: Home or Self Care Social [...] [facility] Interventional Radiology Unit [address] [place], [place] 715801 04/02/2024 15:15 EDT Office Visit [facility] Surgical Oncology - [facility] [address] [place], [place] [phone] Adolfo Carreno MD 111 [facility], [facility], Level 2 [place] [phone] 04/05/2024 9:30 EDT Telemedicine [facility] - [facility] Palliative Care Services [address] [place] [address] [phone] Chichi Woods MD [address] [place] [address] [phone] 04/11/2024 15:00 EDT Telemedicine [facility] Hematology & Oncology - [address] [address] Alisson Carreon MD [address] [place] [address], Level 2 [place] [phone] 04/13/2024 13:30 EDT Appointment [facility] Hematology & Oncology - [address] [address] 04/13/2024 14:00 EDT Appointment [facility] Hematology & Oncology - [address] [address] 04/16/2024 10:00 EST Telemedicine [facility] Palliative Care Services [address] [place] [address] Chichi Woods MD [address] [place] [address] [phone] 04/24/2024 9:00 EST Appointment [facility] Radiology CT Outpatient - [address] [phone] 04/24/2024 11:00 EST Appointment [facility] Breast Imaging - [address] [address] 04/27/2024 12:00 EST Appointment [facility] Hematology & Oncology - [address] [address] 05/02/2024 15:00 EST Telemedicine [facility] Hematology & Oncology [address] 239561 Alisson Carreon MD [address] [place] [address], Level 2 [place] [phone] 05/04/2024 10:15 EST Ancillary Procedure [facility] Cardiology - [address] [place] [address] 05/04/2024 11:30 EST Appointment [facility] Hematology & Oncology - [address] [phone] 05/04/2024 12:00 EST Appointment [facility] Hematology & Oncology [address] 178171 06/12/2024 13:00 EST Appointment [facility] Radiology CT - [address] 955921 documented as of this encounter Visit Diagnoses Not on filedocumented in this encounter
--- OUTSIDE RECORDS SUMMARY | 2024-03-20 15:15 | XMS_ITS | Encounter Summary ---
Author Organization [facility] Address [address] [place] [address] Care Team Providers Care Shipyard Painter Helper Name Role Phone None, Provider Primary Care Provider Maria Fernanda Bender MD Primary Care Provider Unavailab kovacs Encounter Details Date Type Department Care Team (Late st Contact Info) Description 04/18/2006 Results Only [facility] - Maple conversion [address] [place] [address] Maria Fernanda Red MD Social History Tobacco [...] [facility] Interventional Radiology Unit [address] [place] [address] 04/02/2024 15:15 EDT Office Visit [facility] Surgical Oncology - [address] [address] Adolfo Carreno MD 111 [facility], Level 2 [place] [phone] 04/05/2024 9:30 EDT Telemedicine [facility] Palliative Care Services [address], [place] [phone] Chichi Woods MD [address] [place] [address] [phone] 04/11/2024 15:00 EDT Telemedicine [facility] Hematology & Oncology [address] [phone] Alisson Carreon MD [address] [place] [address], Level [address] [place] [phone] 04/13/2024 13:30 EDT Appointment [facility] Hematology & Oncology [address] [phone] 04/13/2024 14:00 EDT Appointment [facility] Hematology & Oncology [address] [id number] 04/16/2024 10:00 EST Telemedicine [facility] - [facility] Palliative Care Services [address] [place] [address] [phone] Chichi Woods MD [address] [place] [address] [phone] 04/24/2024 9:00 EST Appointment [facility] Radiology CT Outpatient - [address] [id number] 04/24/2024 11:00 EST Appointment [facility] Breast Imaging - [facility] S [address] [phone] 04/27/2024 12:00 EST Appointment [facility] Hematology & Oncology - [address] 890731 05/02/2024 15:00 EST Telemedicine [facility] Hematology & Oncology - [address] 905671 Alisson Carreon MD 111 [facility], Level 2 [place] [phone] 05/04/2024 10:15 EST Ancillary Procedure [facility] Cardiology - [address] [place] [address] 05/04/2024 11:30 EST Appointment [facility] Hematology & Oncology - [facility] [address], [place] 015461 05/04/2024 12:00 EST Appointment [facility] Hematology & Oncology - [address] 793261 06/12/2024 13:00 EST Appointment [facility] Radiology CT - [facility] [address] [place], [place] [phone] documented as of this encounter Procedures Procedure Name Priority Date/Time Associated Diagnosis Comments THYROID CASCADE Routine 04/18/2006 10:12 EST HEPATITIS C AB W REFLEX TO HCV RNA BY PCR Routine 04/18/2006 10:12 EST JODY TITER Routine 04/18/2006 10:12 EST COMPLETE BLOOD COUNT Routine 04/18/2006 10:12 EST SYPHILIS SERO (RPR) Routine 04/18/2006 1 0:12 EST HIV 1/2 ANTIGEN AND ANTIBODY, 4TH GENERATION Routine 04/18/2006 10:12 EST ANTI NUCLEAR AB (JODY), IFA Routine 04/18/2006 10:12 EST LIPID PROFILE (INCLUDES CHOLESTEROL, TRIGLYCERIDES, HDL, LDL) Routine 04/18/2006 10:12 EST COMPREHENSIVE METABOLIC PANEL (CMP) Routine 04/18/2006 10:12 EST documented in this encounter Results * THYROID CASCADE (04/18/2006 10:12 EST) TSH 0.99 0.35 - 5.00 uIU/mL [facility] Comment: TSH cascade is not recommended for patients in which pituitary or hypothalamic disorders are suspected. 04/18/2006 10:1 2 EST 04/18/2006 10:45 EST Maria Fernanda Red MD CHEMISTRY & BLOOD GA S ORDERABLES Performing Organization Address [facility] Phone Number [facility] [address] [place] [address] * SYPHILIS SERO (RPR) (04/18/2006 10:12 EST) Syphilis Sero (RPR) NONREACT. NR Dils [facility] 04/18/2006 10:1 2 EST 04/18/2006 10:45 EST Maria Fernanda Red MD IMMUNOLOGY AND SEROL OGY ORDERABLES Performing Organization Address [facility] Phone Number [facility] [address] [place] [address] * LIPID PROFILE (INCLUDES CHOLESTEROL, TRIGLYCERIDES, HDL, LDL) (04/18/2006 10:12 EST) Cholesterol 279 mg/dl [facility] Comment: Desirable:<200 Borderline:200-239 High Risk:>vi=473 Triglycerides 133 35 - 160 mg/dl [facility] HDL 57 mg/dl [facility] Comment: Highly Desirable:>60 Desirable:35-60 High Risk:<35 LDL, Calculated 195 mg/dl [facility] Comment: Desirable:<130 Borderline:130-159 High Risk:>ay=125 Chol/HDL Ratio 4.9 [facility] Fasting? Yes [facility] 04/18/2006 10:1 2 EST 04/18/2006 10:45 EST Maria Fernanda Red MD CHEMISTRY & BLOOD GA S ORDERABLES Performing Organization Address [facility] Phone Number [facility] [address] [place] [address] * HIV ANTIBODY (MANDEEP) (04/18/2006 10:12 EST) Pathologist [facility] HIV 1/2 Antibody NONREACT. NR [facility] 04/18/2006 10:1 2 EST 04/18/2006 10:45 EST Maria Fernanda Red MD IMMUNOLOGY AND SEROL OGY ORDERABLES Performing Organization Address [facility] Co de Phone Number [facility] [address] [place] [address] * HEPATITIS C ANTIBODY (04/18/2006 10:12 EST) Hepatitis C Ab Neg [facility] 04/18/2006 10:1 2 EST 04/18/2006 10:45 EST Maria Fernanda Red MD CHEMISTRY & BLOOD GA S ORDERABLES Performing Organization Address [facility] Co de Phone Number [facility] [address] [place] [address] * (ABNORMAL) COMPREHENSIVE METABOLIC PANEL (04/18/2006 10:12 EST) Pathologist [facility] Potassium 4.1 3.5 - 5.0 mEq/L [facility] Sodium 142 136 - 145 mEq/L [facility] Chloride 103 96 - 110 mEq/L [facility] CO2 32 24 - 32 mEq/L [facility] Total Alkaline Phosphatase 87 38 - 126 U/L [facility] Bilirubin, Total <0.5 0.2 - 1.3 mg/dl [facility] AST 47(H) 15 - 46 U/L [facility] ALT 54(H) 9 - 52 U/L [facility] Albumin 4.6 3.4 - 4.9 g/dl [facility] Total Protein 7.6 6.5 - 8.3 g/dl [facility] Creatinine 0.90 0.7 - 1.5 mg/dl [facility] GFR, Calculated >60 ml/min/1.7 3m2 [facility] BUN 17 10 - 26 mg/dl [facility] Calcium 9.8 8.5 - 10.5 mg/dl [facility] Calculated Calcium 9.6 8.5 - 10.5 mg/dl [facility] Glucose, Serum 84 70 - 100 mg/dl [facility] Fasting? Yes [facility] Albumin/Globulin Ratio 1.5 [facility] 04/18/2006 10:1 2 EST 04/18/2006 10:45 EST Maria Fernanda Red MD CHEMISTRY & BLOOD GA S ORDERABLES Performing Organization Address City/[facility]/ZIP Co de Phone Number [facility] [address] [place] [address] * (ABNORMAL) HEMAGRAM (04/18/2006 10:12 EST) WBC 7.41 4.0 - 12.4 K/cmm [facility] RBC 4.63 3.86 - 5.04 M/cmm [facility] Hemoglobin 15.3(H) 11.6 - 15.2 gm/dl [facility] HCT 44.4 34.9 - 44.4 % [facility] MCV 96 81 - 98 fl [facility] MCH 32.9 26.7 - 33.3 pg [facility] MCHC 34.3 32.1 - 35.9 gm/dl [facility] PLT 274 141 - 320 K/cmm [facility] RDW-CV 12.9 11.7 - 14.6 % [facility] 04/18/2006 10:1 2 EST 04/18/2006 10:45 EST Maria Fernanda Red MD HEMATOLOGY & PF4 ORD ERABLES Performing Organization Address City/[facility]/ZIP Co de Phone Number [facility] [address] [place] [address] * (ABNORMAL) JODY TITER (04/18/2006 10:12 EST) JODY Titer 640(H) 0 - 40 dils [facility] Comment: Diffuse and speckled JODY patterns. Result is equal to or greater than 640 dils. 04/18/2006 10:1 2 EST 04/18/2006 10:45 EST Maria Fernanda Red MD IMMUNOLOGY AND SEROL OGPrasad ORDERABLES Performing Organization Address [facility] de Phone Number [facility] [address] [place] [address] * ANTI NUCLEAR ANTIBODY (04/18/2006 10:12 EST) Anti Nuclear Ab Positive at 40 dils, titer to follow. 0 - 40 Dils [facility] 04/18/2006 10:1 2 EST 04/18/2006 10:45 EST Maria Fernanda Red MD IMMUNOLOGY AND SEROL VELASQUEZ ORDERABLES Performing Organization Address [facility] Phone Number [place] [address] [address] documented in this encounter Visit Diagnoses Not on filedocumented in this encounter Care Teams Shipyard Painter Helper Relationship Specialty Start Date End Date None, Provider PCP - General 08/21/09 01/05/11 Maria Fernanda Red MD PCP - General 12/17/08 08/20/09 documented as of this encounter
--- OUTSIDE RECORDS SUMMARY | 2024-03-20 15:15 | XMS_ITS | Encounter Summary ---
Author Organization [facility] Address [address] [place] [address] Care Team Providers Care Dredge Master Name Role Phone None, Provider Primary Care Provider Maria Fernanda Bender MD Primary Care Provider Unavailab le Encounter Details Date Type Department Care Team (Late st Contact Info) Description 08/01/2006 Results Only [facility] - Maple conversion [address] [place] [address] Suraj Root MD [address] [place] [address] [address] [place] [phone] Social History Tobacco Use Types Packs/Day Years [...] Appointment [facility] Interventional Radiology Unit [address] [place], [place] 059651 04/02/2024 15:15 EDT Office Visit [facility] Surgical Oncology - [facility] [address] [place], [place] 540481 Adolfo Carreno MD 111 [facility], Level 2 [place] [phone] 04/05/2024 9:30 EDT Telemedicine [facility] - [facility] Palliative Care Services [address] [place] [address] [phone] Chichi Woods MD [address] [place] [address] [phone] 04/11/2024 15:00 EDT Telemedicine [facility] Hematology & Oncology - [address] [phone] Alisson Carreon MD [address] [place] [address] [address] [place] [phone] 04/13/2024 13:30 EDT Appointment [facility] Hematology & Oncology - [address] [address] 04/13/2024 14:00 EDT Appointment [facility] Hematology & Oncology [address] [address] 04/16/2024 10:00 EST Telemedicine [facility] Palliative Care Services [address] [place] [address] 657681 Chichi Woods MD [address] [place] [address] [phone] 04/24/2024 9:00 EST Appointment [facility] Radiology CT Outpatient - [address] 151631 04/24/2024 11:00 EST Appointment [facility] Breast Imaging - [address] [address] 04/27/2024 12:00 EST Appointment [facility] Hematology & Oncology - [address] 018011 05/02/2024 15:00 EST Telemedicine [facility] Hematology & Oncology [address] [address] Alisson Carreon MD 111 [facility], Level 2 [place] [phone] 05/04/2024 10:15 EST Ancillary Procedure [facility] Cardiology - [place] [address] [place] [address] 05/04/2024 11:30 EST Appointment [facility] Hematology & Oncology [address] [id number] 05/04/2024 12:00 EST Appointment [facility] Hematology & Oncology [address] [phone] 06/12/2024 13:00 EST Appointment [facility] Radiology CT - [address] 302001 documented as of this encounter Procedures Procedure Name Priority Date/Time Associated Diagnosis Comments SURGICAL PATHOLOGY Routine 08/01/2006 0:00 EST documented in this encounter Results * SURGICAL PATHOLOGY (08/01/2006 0:00 EST) Pathology Report: SURGICAL PATHOLOGY REPORT Reports generated via electronic interface contain original data; however they are lacking the format of the original report. Caution should be taken when reading/interpreti ng unformatted reports. Name: ? SMITH SUNSHINE A ? Accession #: ? [id number] ? : ? 1960 (Age: 45) ??F ? Collect Date: ? 08/01/2006 ? Location: ? [facility] ? Receive Date: ? 08/01/2006 ? Provider: SURAJ ROOT MD Copy to: ? Final Pathologic Diagnosis: ? Skin of breast, right lateral, shave biopsy: 1. ?Melanocytic nevus, junctional type, with unusual architectural features and mild cytologic atypia. ? - Nevus does not extend to edges of shave biopsy specimen in the plane of the sections ??examined. Microscopic Description: ? The epidermis is hyperplastic with elongate and anastomosing rete ridges. There is a circumscribed proliferation of melanocytes within the epidermis that consists of nests and individual cells in a lentiginous pattern. ??The nests predominate and vary in size, shape, and spacing. ??Some of the nests bridge between rete ridges. ??Although the individual melanocytes are unevenly spaced in some areas, they show no tendency toward confluent growth or upward migration. The melanocytes are enlarged and show a mild degree of nuclear size and shape variation. ??There is papillary dermal fibroplasia. ??(Dr. Muñoz)/[facility] Document reviewed and electronically signed by: Santa Muñoz MD Report ??Date: 08/03/2006 16:26 By the signature above, the attending physician certifies that he/she has personally conducted a gross and/or microscopic examination of the described specimens and rendered or confirmed the above diagnosis. Specimen(s) Received: ? R lat breast Clinical History: ? SK; R/O MM; clinical diagnosis code: ??709.9 Gross Description: ? Received in formalin labelled O'José and right lat breast is an irregular 1.0 x 0.8 by less than 0.1 cm variegated pale moura-brown skin shave. The specimen is quadrisected and entirely submitted in one cassette. ??(Elias Barlow)/[facility] End of Report [facility] 08/01/2006 08/01/2006 5:4 6 EST Suraj Root MD PATHOLOGY ORDERABLES Performing Organization Address City/State/[facility] Co de Phone [place] [address] documented in this encounter Visit Diagnoses Not on filedocumented in this encounter Care Teams Dredge Master Relationship Specialty Start Date End Date None, Provider PCP - General 08/21/09 01/05/11 Maria Fernanda Red MD PCP - General 12/17/08 08/20/09 documented as of this encounter
--- OUTSIDE RECORDS SUMMARY | 2024-03-20 15:15 | XMS_ITS | Encounter Summary ---
Author Organization [facility] Address [address] [place] [address] Care Team Providers Care Smoke And Flame Specialist Name Role Phone None, Provider Primary Care Provider Maria Fernanda Bender MD Primary Care Provider Unavailab kovacs Encounter Details Date Type Department Care Team (Late st Contact Info) Description 02/14/[address] [facility] - Maple conversion [address] [place] [address] Maria Fernanda Red MD Social History Tobacco [...] Appointment [facility] Interventional Radiology Unit [address] [place] [address] 04/02/2024 15:[address] [facility] Surgical Oncology - [address] [address] Adolfo Carreno MD 111 [facility], Level 2 [place] [phone] 04/05/2024 9:30 EDT Telemedicine [facility] Palliative Care Services [address] [place], [place] 411481 Chichi Woods MD [address] [place] [address] [phone] 04/11/2024 15:00 EDT Telemedicine [facility] Hematology & Oncology [address] 492131 Alisson Carreon MD [address] [place] [address], Level 2 [place] [phone] 04/13/2024 13:30 EDT Appointment [facility] On[facility] [address] 595351 04/13/2024 14:00 EDT Appointment [facility] Oncology [address] [phone] 04/16/2024 10:00 EST Telemedicine [facility] Palliative Care Services [address] [place] [address] [phone] Chichi Woods MD [address] [place] [address] [phone] 04/24/2024 9:00 EST Appointment [facility] Radiology CT Outpatient - [address] [id number] 04/24/2024 11:[address] [facility] Breast Imaging - [facility] S [address] [id number] 04/27/2024 12:00 EST Appointment [facility] Hematology & Oncology - [address] [phone] 05/02/2024 15:00 EST Telemedicine [facility] Hematology & Oncology - [address] 047881 Alisson Carreon MD 111 [facility], [facility], Level 2 [place] [phone] 05/04/2024 10:[address] [facility] Cardiology - [address] [place] [address] 05/04/2024 11:30 EST Appointment [facility] Hematology & Oncology - [address] 827481 05/04/2024 12:00 EST Appointment [facility] Hematology & Oncology - [address] 320251 06/12/2024 13:00 EST Appointment [facility] Radiology CT - [address] [phone] documented as of this encounter Procedures Procedure Name Priority Date/Time Associated Diagnosis Comments HOLD PURPLE TOP Routine 02/14/2007 8:20 EDT ALT Routine 02/14/2007 8:20 EDT LIPID PROFILE (INCLUDES CHOLESTEROL, TRIGLYCERIDES, HDL, LDL) Routine 02/14/2007 8:20 EDT documented in this encounter Results * LIPID PROFILE (INCLUDES CHOLESTEROL, TRIGLYCERIDES, HDL, LDL) (02/14/2007 8:20 EDT) Cholesterol 225 mg/dl [facility] Comment: Desirable:<200 Borderline:200-239 High Risk:>jp=050 Triglycerides 129 35 - 160 mg/dl [facility] HDL 59 mg/dl [facility] Comment: Highly Desirable:>60 Desirable:35-60 High Risk:<35 LDL, Calculated 140 mg/dl [facility] Comment: Desirable:<130 Borderline:130-159 High Risk:>sm=299 Chol/HDL Ratio 3.8 [facility] Fasting? Yes [facility] 02/14/2007 8:20 EDT 02/14/2007 20:37 EDT Maria Fernanda Red MD CHEMISTRY & BLOOD GA S ORDERABLES Performing Organization Address [facility] Co de Phone Number [facility] [address] [place] [address] * HOLD PURPLE TOP (02/14/2007 8:20 EDT) Hold Purple Top EDTA for hematology will be discarded after 48 hours, differential not available after 12 hours. [facility] 02/14/2007 8:20 EDT 02/14/2007 20:37 EDT Maria Fernanda Red MD LAB INFO SERVICE AND SUPPORT & PHONE RESULT Performing Organization Address [facility] de Phone Number [facility] [address] [place] [address] * ALT (02/14/2007 8:20 EDT) ALT 40 9 - 52 U/L [facility] 02/14/2007 8:20 EDT 02/14/2007 20:37 EDT Maria Fernanda Red MD CHEMISTRY & BLOOD GA S ORDERABLES Performing Organization Address [facility] Co de Phone Number [facility] [address] [place] [address] documented in this encounter Visit Diagnoses Not on filedocumented in this encounter Care Teams Smoke And Flame Specialist Relationship Specialty Start Date End Date None, Provider PCP - General 08/21/09 01/05/11 Maria Fernanda Red MD PCP - General 12/17/08 08/20/09 documented as of this encounter
--- OUTSIDE RECORDS SUMMARY | 2024-03-20 15:15 | XMS_ITS | Encounter Summary ---
Author Organization [facility] Address [address] [place] [address] Care Team Providers Care Ship Fitter Name Role Phone Unavailable Primary Care Provider Unavailabl e Encounter Details Date Type Department Care Team (Latest Contact Info) Description 08/17/2007 18:17 EST Hospital Encounter [facility] - Other [address] [place] [address] Maria Fernanda Red MD Discharge Disposition: Home [...] [facility] [address] [place] [address] 04/02/2024 15:15 EDT Office Visit [facility] Surgical Oncology - [address] [address] Adolfo Carreno MD 111 [facility], Level [address] [place] [phone] 04/05/2024 9:30 EDT Telemedicine [facility] Palliative Care Services [address] [place] [address] [phone] Chichi Woods MD [address] [place] [address] [phone] 04/11/2024 15:00 EDT Telemedicine [facility] Hematology & Oncology [address] [phone] Alisson Carreon MD [address] [place] [address], Level [address] [place] [phone] 04/13/2024 13:30 EDT Appointment [facility] Hematology & Oncology [address] [phone] 04/13/2024 14:00 EDT Appointment [facility] Hematology & Oncology [address] 557201 04/16/2024 10:00 EST Telemedicine [facility] - [facility] Palliative Care Services [address] [place] [address] [phone] Chichi Woods MD [address] [place] [address] [phone] 04/24/2024 9:00 EST Appointment [facility] Radiology CT Outpatient - [address] [id number] 04/24/2024 11:00 EST Appointment [facility] Breast Imaging - [address] [phone] 04/27/2024 12:00 EST Appointment [facility] Hematology & Oncology - [address] [phone] 05/02/2024 15:00 EST Telemedicine [facility] Hematology & Oncology - [address] [address] Alisson Carreon MD 111 [facility], [facility], Level [address] [place] [phone] 05/04/2024 10:15 EST Ancillary Procedure [facility] Cardiology - [address] [place], [place] [phone] 05/04/2024 11:30 EST Appointment [facility] Hematology & Oncology - [address] [phone] 05/04/2024 12:00 EST Appointment [facility] Hematology & Oncology [address] 905631 06/12/2024 13:00 EST Appointment [facility] Radiology CT - [facility] [address] [place], [place] [phone] documented as of this encounter Visit Diagnoses Not on filedocumented in this encounter
--- OUTSIDE RECORDS SUMMARY | 2024-03-20 15:15 | XMS_ITS | Encounter Summary ---
Author Organization [facility] Address [address] [place] [address] Care Team Providers Care Mass Spectroscopist Name Role Phone Unavailable Primary Care Provider Unavailabl e Encounter Details Date Type Department Care Team (Latest Contact Info) Description 08/16/2007 9:50 EST - 08/16/2007 11:59 EST Hospital Encounter [facility] - Other [address] [place] [address] Maria Fernanda Red MD Discharge Disposition: Home [...] Info) Description 04/02/2024 10:30 EDT Appointment [facility] Interventional Radiology Unit [address], [place] [phone] 04/02/2024 15:15 EDT Office Visit [facility] Surgical Oncology - [address] [address] Adolfo Carreno MD 111 [facility], Level 2 [place] [phone] 04/05/2024 9:30 EDT Telemedicine [facility] Palliative Care Services [address] [place] [address] [phone] Chichi Woods MD [address] [place] [address] [phone] 04/11/2024 15:00 EDT Telemedicine [facility] Hematology & Oncology - [address] [phone] Alisson Carreon MD [address] [place] [address], Level [address] [place] [phone] 04/13/2024 13:30 EDT Appointment [facility] Hematology & Oncology [address] [phone] 04/13/2024 14:00 EDT Appointment [facility] Hematology & Oncology [address] [phone] 04/16/2024 10:00 EST Telemedicine [facility] Palliative Care Services [address] [place] [address] [phone] Chichi Woods MD [address] [place] [address] [phone] 04/24/2024 9:00 EST Appointment [facility] Radiology CT Outpatient - [address] [id number] 04/24/2024 11:00 EST Appointment [facility] Breast Imaging - [address] [id number] 04/27/2024 12:00 EST Appointment [facility] Hematology & Oncology - [address] [phone] 05/02/2024 15:00 EST Telemedicine [facility] Hematology & Oncology - [address] [address] Alisson Carreon MD [address] [place] [address], Level [address] [place] [phone] 05/04/2024 10:15 EST Ancillary Procedure [facility] Cardiology - [address] [place], [place] [phone] 05/04/2024 11:30 EST Appointment [facility] Hematology & Oncology - [address] [phone] 05/04/2024 12:00 EST Appointment [facility] Hematology & Oncology [address] 825441 06/12/2024 13:00 EST Appointment [facility] Radiology CT - [address] [phone] documented as of this encounter Visit Diagnoses Not on filedocumented in this encounter
--- OUTSIDE RECORDS SUMMARY | 2024-03-20 15:15 | XMS_ITS | Encounter Summary ---
Author Organization [facility] Address [address] [place] [address] Care Team Providers Care Stock Holder Name Role Phone Maria Fernanda Red MD Primary Care Provider Unavailab le Encounter Details Date Type Department Care Team (Late st Contact Info) Description 08/30/2006 Office Visit [facility] - Maple conversion [address] [place] [address] Koffi Jenkins, GRISEL [address] [phone] Social History Tobacco Use Types Packs/Day Years Used Date Smoking Tobacco: Never Assessed Sex and Gender Information Value Date Recorded Sex Assigned at Female 05/17/2019 15:31 EST Gender Identity Female 04/26/2019 13:08 EST Sexual Orientation Bisexual 08/26/2022 10 :47 EDT documented as of this encounter Progress Notes * Koffi Jenkins - 08/03/2009 0758 EST Department - Physician Summary Registration Date/Time: 08/30/2006 19:01 Time Seen: 20:37. Arrived- By private vehicle. Historian- patient. HISTORY OF PRESENT ILLNESS Chief Complaint- Injury to right knee. The injury happened today. Fell while skiing; tripped. (krishnan). Patient is experiencing mild pain. Patient denies injury to the head or neck. No other injury. REVIEW OF SYSTEMS The patient sustained a laceration. No swelling, tingling, weakness or numbness. She has no pain onweight bearing. All systems otherwise negative, except as recorded above. PAST HISTORY See nurses notes. Medications: The patient's medications have been reviewed. Allergies: The patient's allergies have been reviewed. ADDITIONAL NOTES The nursing notes have been reviewed. PHYSICAL EXAM Appearance: Alert. Oriented X3. Patient in mild distress. Vital Signs: Have been reviewed. Head: Head atraumatic. Back: Normal inspection. No back tenderness. Skin: Normal skin color and turgor. Skin warm and dry. Extremities: Right knee: moderate tenderness and deep laceration greater than 5.0 cm located in theinfrapatellar area and medial joint line. SEE LACERATION PROCEDURE NOTE #1. No erythema, swelling, abrasion, ecchymosis or puncture wound. No deformity. Lower extremity exam otherwise negative. Extremities otherwise negative. Gait: Limping gait. Neuro, Vascular, and Tendons: Vascular status intact. Sensation intact. Motor intact. Neuro: Oriented X 3. No motor deficit. No sensory deficit. LABS, X-RAYS, AND EKG X-Rays: Right knee negative. The X-rays were independently viewed by me and interpreted by the radiologist. PROGRESS AND PROCEDURES Laceration Repair: Location: right knee. Length: 15 cm. Complexity: intermediate (layer closure andsingle layer closure with heavy contamination and requiring extensive irrigation). Wound depth/shape- subcutaneous and linear. Wound is clean. Distal neuro/vascular/tendon status normal. Local anesthesia provided using 0.50% Marcaine. Prepped with Betadine. Wound explored and irrigated with normal saline. Extensive amounts of foreign material removed. Subcutaneous closure: interrupted 4-0 Vicryl (27 sutures). E.D. Course: 2 gm IVPB. Morphine 3mg IVP. Percocet 10 mg/[address] robins injected knee, no communication with laceration, joint intact.. Discussed case with physician Dr. Robins, Ortho resident, to come to ER and inject knee to evalautefor communitcation with wound.. ED Attending on duty and available for supervision: Elias Crow. Disposition: Discharged home. Condition: good. Discharged home in good condition. CLINICAL IMPRESSION Multiple deep lacerations to right knee. INSTRUCTIONS Apply ice intermittently (15-20 minutes at a time 4-6 times daily). Wear knee immobilizer for days until better (10). Protect wound and keep wound area clean. You may wash wounds briefly, then dry. Apply neosporin twice daily. Sutures are absorbable and do not require removal. Allow steri-strips toremain in place until they loosen. You may walk and bear weight as tolerated. Your Current Medications: Continue current medications. Important: INFECTION: Watch for signs of infection (increasing heat and redness, pus-like drainage,swelling, or increased pain). Return or see your doctor if these signs occur. Prescription Medications: Cephalexin 500mg: take 1 tab orally every 6 hours for 7 days. No refills. Percocet 5 mg/325 mg: take 1-2 tablets orally every 6 hours. Dispense twenty- five (25). No refill. Generic substitute OK. OTC Medications: Acetaminophen (available over the counter): take according to label instructions. Motrin (available over the counter): take according to label instructions. Follow-up: Follow up with your doctor for suture removal. in ten days. Understanding of the discharge instructions verbalized by patient. (Electronically signed by Valdo Vela 08/31/2006 18:00) Department - Nursing Summary Registration Date/Time: 08/30/2006 19:01 TRIAGE Initial Assessment Triage time 19:Aug 30 2006. Acuity: LEVEL 3. BP: 114 / 57. HR: 80. RR: 20. Temp: 36.5 tympanic. Alert. No acute distress. --1909 Tammi Beck R.N.. Medications (Beneva once a month [employer]). Clonidine (Gel ). Effexor: 75mg daily. (Evening Prime dagmar oil). (Kavava). --1909 Tammi Beck R.N.. Allergies SULFA DRUGS. --1909 Tammi Beck R.N.. History Chief Complaint: FALL and (Pt states fell while skiing, landing on right knee. Did not hit head. NoLOC.+ dizzines at time. ). This occurred just prior to arrival. Pain level now: 5/10. 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 PAST HX: Tetanus status: up-to-date. Last tetanus: (last one 07/20). (Breast CA mastectomy 01/14).HX:Nonsmoker. No alcohol use. No report of abuse. Arrived by private vehicle. Historian: patient. --1909 Tammi Beck R.N.. PHYSICAL ASSESSMENT Alert. Oriented X 3. Respirations not labored. Pulses within normal limits. Capillary refill less than 2 seconds. (Able to bear weight on right leg ). Skin is warm and dry. No bleeding. (approx 3 1/2inches long, over knee cap ). Does not appear in pain. --1911 Tammi Beck R.N.. NURSING PROGRESS NOTES Patient identifiers checked. Call light placed in reach. Side rails up x 1. Bed placed in lowest position. Brakes of bed on. Friend at bedside. --1951 Edith May E.M.T. (pt in xray). --2024 Antionette Ramirez R.N. (xray done). --2035 Antionette Ramirez R.N. PERCOCET 5 mg/325 mg 2 tab PO. Sedative drug warning given to the patient. The patient is calm and resting quietly. Alert. Oriented X 3. No respiratory distress. Skin is warmand dry. --2050 Karen Allen R.N. KEFZOL 2 gm IVPB via IV pump. MORPHINE 3mg diluted with 10 mL NS IVP. . --2246 Aj Mane R.N. (Assumed care at this time.). --2309 Roxana Hoang R.N. BP: 95 / 21. HR: 71. RR: 12. O2 saturation: 97% room air. Patient reports current pain level as 0/10. --2310 Antionette Ramirez R.N. (PA in suturing at this time; report to oncoming RN). --2311 Antionette Ramirez R.N. Two patient identifiers checked. (Laceration is being repaired by TANK Wheeler). Call light placedin reach. Side rails up x 1. Bed placed in lowest position. Brakes of bed on. --2344 Roxana Hoang R.N. (TANK Schaeffer placed knee immobilizer on. ). --002 Roxana Hoang R.N. (PERCOCET starter pack dispensed as ordered by [employer] RX:# [id number] ( 5 tablets)). --0023 Luis Ayoub. IV / I&O Flowsheet IV access: left wrist. IV started in ED with 20g angiocath. --2245 Aj Mane R.N.. DISPOSITION / DISCHARGE Patient reports pain level on departure as 12/20. Condition at departure: stable. IV site discontinued, catheter intact. No learning barriers present. Discharge instructions reviewed with the patient.Reviewed warnings (General ). Reviewed medication side effects, precautions, dosing and course; prescription (s) given to the patient (Percocet and Cephalexin). Reviewed wound care instructions. Reviewed referrals (PCP). Patient verbalized understanding. Written instructions provided in Armenian. The patient was discharged home and accompanied by pump and still operator. The patient left the Emergency Department ambulatory and via private vehicle. Balance Wheel Hand Filer driving. --002 Roxana Hoang R.N.. Edith Calzada R.N., E.M.T. Joanne Lalime R.N. Jennifer Bliss, R.N. Raenetta Liberty R.N. Jo McKinstry, R.N. Locked/Released at 08/31/2006 0:24 by Roxana Hoang R.N. documented in this encounter Plan of Treatment Upcoming Encounters Date Type Department Care Team (Late st Contact Info) Description 04/02/2024 10:30 EDT Appointment [facility] Interventional Radiology Unit [address] [place] [address] [phone] 04/02/2024 15:15 EDT Office Visit [facility] Surgical Oncology - [facility] [address], [place] [phone] Adolfo Carreno MD 111 [facility], Level 2 [place] [phone] 04/05/2024 9:30 EDT Telemedicine [facility] Palliative Care Services [address] [place] [address] [phone] Chichi Woods MD [address] [place] [address] [phone] 04/11/2024 15:00 EDT Telemedicine [facility] Hematology & Oncology - [address] [address] Alisson Carreon MD [address] [place] [address] Level [address] [place] [phone] 04/13/2024 13:30 EDT Appointment [facility] Hematology & Oncology - [address] [address] 04/13/2024 14:00 EDT Appointment [facility] Hematology & Oncology [address] [address] 04/16/2024 10:00 EST Telemedicine [facility] Palliative Care Services [address] [place] [address] Chichi Woods MD [address] [place] [address] [phone] 04/24/2024 9:00 EST Appointment [facility] Radiology CT Outpatient - [address] [address] 04/24/2024 11:00 EST Appointment [facility] Breast Imaging - [address] [address] 04/27/2024 12:00 EST Appointment [facility] Hematology & Oncology - [address] [address] 05/02/2024 15:00 EST Telemedicine [facility] Hematology & Oncology [address] [phone] Alisson Carreon MD [address] [place] [address], Level [address] [place] [phone] 05/04/2024 10:15 EST Ancillary Procedure [facility] Cardiology - [address] [place] [address] 05/04/2024 11:30 EST Appointment [facility] Hematology & Oncology [address] [phone] 05/04/2024 12:00 EST Appointment [facility] Hematology & Oncology [address] 994321 06/12/2024 13:00 EST Appointment [facility] Radiology CT - [address] [phone] documented as of this encounter Visit Diagnoses Not on filedocumented in this encounter Care Teams Stock Holder Relationship Specialty Start Date End Date Maria Fernanda Red MD PCP - General 12/17/08 08/20/09 documented as of this encounter
--- OUTSIDE RECORDS SUMMARY | 2024-03-20 15:15 | XMS_ITS | Encounter Summary ---
Author Organization [facility] Address [address] [place] [address] Care Team Providers Care Guard Captain Name Role Phone Maria Fernanda Red MD Primary Care Provider Unavailab le Encounter Details Date Type Department Care Team (Late st Contact Info) Description 06/21/2006 Before PRISM Converted Visit (Maple) [facility] - Maple conversion [address] [place] [address] Damian Brooke ANP Social History Tobacco Use Types Packs/Day Years Used Date Smoking Tobacco: Never Assessed Sex and Gender Information Value Date Recorded Sex Assigned at Female 05/17/2019 15:31 EST Gender Identity Female 04/26/2019 13:08 EST Sexual Orientation Bisexual 08/26/2022 10 :47 EDT documented as of this encounter Progress Notes * Damian Brooke NP - 06/16/2009 5710 EST DIVISION OF SURGICAL ONCOLOGY -[facility] PROGRESS/FOLLOWUP NOTE - 06/21/2006 Identification The patient is a 45-year-old female with a history of right breast DCIS treated withtotal mastectomy. She is here for follow-up. Surgical procedure and date: 01/30/04 total mastectomy, bilateral reconstruction, with saline implants by Dr. Pavan Batres. Surgical pathology: Tumor: DCIS, 2.7 cm maximum dimension, moderate nuclear grade. Margin status: Positive at the anterior skin margin. Adjuvant radiation: None. Adjuvant hormone therapy: None. Interval history Sendy returns for posttreatment surveillance. She continues to be very pleased with her cosmetic outcome and bilateral implants. She does self- exam and denies any new changes. She has had a recent negative left breast mammogram. She is otherwise in stable health. She has a couple of new problems which have required further evaluation. 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 She was diagnosed with genital herpes in 03/18. She has had one recurrent episode. This has been challenging, but she is very happy in a new relationship. She continues to exercise through competitive dancing and met her new partner this way. She denies any other new health-related concerns. Current Medications: Multivitamin, topical clonidine, Effexor, black cohosh, cava cava, evening primrose oil, AndroGel, womenmenocaps, Boniva, ibuprofen, and as needed Valtrex. Allergies: Sulfa. 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 G0. She used oral contraceptives for 15 years and went through premature menopause at age 38. She used estrogen cream x 4 ?? years prior to her diagnosis. She has stopped any hormone replacement at this point. Family history: She has a paternal aunt with a history of breast cancer in her early 30s. Her father had bladder cancer at 65. maternal uncle had bladder cancer at an unknown age. She has a large family with no other history of breast or ovarian cancer. Social history: She is and in a new relationship which she is quite pleased about. He is an plant accountant in [employer]. She is ???between jobs.?? Update form has been reviewed. O: On physical examination is a very pleasant, effervescent, 45-year-old woman in no distress. Her skin is warm and dry.Her sclerae are anicteric. She has no cervical, clavicular, or axillary adenopathy. Her breasts are examined in the sitting and supine positions. has subpectoral right breast implant and prepectoral left breast implant for augmentation. There are no suspicious palpable abnormalities in either breast. There is no skin or nipple change in the left breast. Her ais flat, soft, andnontender, with no hepatosplenomegaly. Mammogram done 06/19 of the left breast showed scattered fibroglandular density and a normal-appearing saline implant. A: Patient is 2 ?? years status post right total mastectomy for DCIS. She has no clinical evidence for recurrence. P: Patient will return in 6 months for reevaluation. She is asked to return sooner if she notes anynew changes or problems. Signed by DANIELA Gamez 06/23/2006 10:[address] ANP DANIELA Gamez - DANIELA Jenkins P - kkb Job ID: [id number] Document ID: [id number] cc: Maria Fernanda Red MD Cancer Data Registry documented in this encounter Plan of Treatment Upcoming Encounters Date Type Department Care Team (Late st Contact Info) Description 04/02/2024 10:30 EDT Appointment [facility] Interventional Radiology Unit [address] [place] [address] [phone] 04/02/2024 15:15 EDT Office Visit [facility] Surgical Oncology - [address] [phone] Adolfo Carreno MD [address] [place] [address], [facility] [address] [place] [phone] 04/05/2024 9:30 EDT Telemedicine [facility] - [facility] Palliative Care Services [address] [place] [address] [phone] Chichi Woods MD [address] [place] [address], [address] [phone] 04/11/2024 15:00 EDT Telemedicine [facility] Hematology & Oncology - [address] [phone] Alisson Carreon MD [address] [place] [address], [facility] [address] [place] [phone] 04/13/2024 13:30 EDT Appointment [facility] Hematology & Oncology - [address] [phone] 04/13/2024 14:00 EDT Appointment [facility] Hematology & Oncology [address] [address] 04/16/2024 10:00 EST Telemedicine [facility] Palliative Care Services [address] [place] [address] [phone] Chichi Woods MD [address] [place] [address], [address] [phone] 04/24/2024 9:00 EST Appointment [facility] Radiology CT Outpatient - [address] 169031 04/24/2024 11:00 EST Appointment [facility] Breast Imaging - [facility] [address] [place], [place] 246781 04/27/2024 12:00 EST Appointment [facility] Hematology & Oncology [address] [phone] 05/02/2024 15:00 EST Telemedicine [facility] Hematology & Oncology [address] 128101 Alisson Carreon MD [address] [place] [address], Level [address] [place] [phone] 05/04/2024 10:15 EST Ancillary Procedure [facility] Cardiology [place] [address] 05/04/2024 11:30 EST Appointment [facility] Hematology & Oncology [address] [phone] 05/04/2024 12:00 EST Appointment [facility] Hematology & Oncology [address] [phone] 06/12/2024 13:00 EST Appointment [facility] Radiology CT - [place] [address] [place] [address] documented as of this encounter Visit Diagnoses Not on filedocumented in this encounter Care Teams Guard Captain Relationship Specialty Start Date End Date Maria Fernanda Red MD PCP - General 12/17/08 08/20/09 documented as of this encounter
--- OUTSIDE RECORDS SUMMARY | 2024-03-20 15:15 | XMS_ITS | Encounter Summary ---
Author Organization [facility] Address [address] [place] [address] Care Team Providers Care Property Management Assistant Name Role Phone Unavailable Primary Care Provider Unavailabl e Encounter Details Date Type Department Care Team (Latest Contact Info) Description 04/17/2007 11:12 EST - 04/17/2007 11:59 EST Hospital Encounter [facility] [address] [place] [address] Santa Spicer FNP [facility] [address] [place] [address] Discharge Disposition: Auto Discharge Social History Tobacco [...] EDT Appointment [facility] Interventional Radiology Unit [address] [place] [address] [phone] 04/02/2024 15:15 EDT Office Visit [facility] Surgical Oncology - [address] [phone] Adolfo Carreno MD 111 [facility], Level [address] [place] [phone] 04/05/2024 9:30 EDT Telemedicine [facility] Palliative Care Services [address] [place] [address] [phone] Chichi Woods MD [address] [place] [phone] 04/11/2024 15:00 EDT Telemedicine [facility] Hematology & Oncology - [address] 189451 Alisson Carreon MD [address] [place] [address] Level 2 [place] [phone] 04/13/2024 13:30 EDT Appointment [facility] Hematology & Oncology - [address] [address] 04/13/2024 14:00 EDT Appointment [facility] Hematology & Oncology - [address] [phone] 04/16/2024 10:00 EST Telemedicine [facility] Palliative Care Services [address] [place] [address] [phone] Chichi Woods MD [address] [place] [address] [phone] 04/24/2024 9:00 EST Appointment [facility] Radiology CT Outpatient - [address] [phone] 04/24/2024 11:00 EST Appointment [facility] Breast Imaging - [address] [address] 04/27/2024 12:00 EST Appointment [facility] Hematology & Oncology - [address] [address] 05/02/2024 15:00 EST Telemedicine [facility] Hematology & Oncology [address] [phone] Alisson Carreon MD [address] [place] [address], Level [address] [place] [phone] 05/04/2024 10:15 EST Ancillary Procedure [facility] Cardiology [place] [place] [address] 05/04/2024 11:30 EST Appointment [facility] Hematology & Oncology - [address] [phone] 05/04/2024 12:00 EST Appointment [facility] Hematology & Oncology [address] [phone] 06/12/2024 13:00 EST Appointment [facility] Radiology CT - [address] [phone] documented as of this encounter Visit Diagnoses Not on filedocumented in this encounter
--- OUTSIDE RECORDS SUMMARY | 2024-03-20 15:15 | XMS_ITS | Encounter Summary ---
Author Organization [facility] Address [address] [place] [address] Care Team Providers Care Viticulture Teacher Name Role Phone Unavailable Primary Care Provider Unavailabl e Encounter Details Date Type Department Care Team (Latest Contact Info) Description 11/14/2006 8:30 EDT - 11/14/2006 11:59 EDT Hospital Encounter [facility] - Other [address] [place] [address] Maria Fernanda Red MD Discharge Disposition: Auto [...] [facility] [address] [place] [address] [phone] 04/02/2024 15:15 EDT Office Visit [facility] Surgical Oncology - [address] [phone] Adolfo Carreno MD 111 [facility], Level [address] [place] [phone] 04/05/2024 9:30 EDT Telemedicine [facility] Palliative Care Services [address] [place] [address] [phone] Chichi Woods MD [address] [place] [address] [phone] 04/11/2024 15:00 EDT Telemedicine [facility] Hematology & Oncology - [address] 113121 Alisson Carreon MD [address] [place] [address], Level [address] [place] [phone] 04/13/2024 13:30 EDT Appointment [facility] Hematology & Oncology [address] 082111 04/13/2024 14:00 EDT Appointment [facility] Hematology & Oncology [address] 225511 04/16/2024 10:00 EST Telemedicine [facility] Palliative Care Services [address] [place] [address] 249601 Chichi Woods MD [address] [place] [address] [phone] 04/24/2024 9:00 EST Appointment [facility] Radiology CT Outpatient - [address] [address] 04/24/2024 11:00 EST Appointment [facility] Breast Imaging - [address] 052421 04/27/2024 12:00 EST Appointment [facility] Hematology & Oncology - [address] 132911 05/02/2024 15:00 EST Telemedicine [facility] Hematology & Oncology - [address] [address] Alisson Carreon MD 111 [facility], [facility], Level [address] [place] [phone] 05/04/2024 10:15 EST Ancillary Procedure [facility] Cardiology - [address] [place] [address] 05/04/2024 11:30 EST Appointment [facility] Hematology & Oncology - [address] 727341 05/04/2024 12:00 EST Appointment [facility] Hematology & Oncology [address] 932321 06/12/2024 13:00 EST Appointment [facility] Radiology CT - [address] 712951 documented as of this encounter Procedures Procedure Name Priority Date/Time Associated Diagnosis Comments HOLD PURPLE TOP Routine 11/14/2006 8:30 EDT LIPID PROFILE (INCLUDES CHOLESTEROL, TRIGLYCERIDES, HDL, LDL) Routine 11/14/2006 8:30 EDT documented in this encounter Results * LIPID PROFILE (INCLUDES CHOLESTEROL, TRIGLYCERIDES, HDL, LDL) (11/14/2006 8:30 EDT) Cholesterol 221 mg/dl [facility] Comment: Desirable:<200 Borderline:200-239 High Risk:>oy=508 Triglycerides 62 35 - 160 mg/dl [facility] HDL 67 mg/dl [facility] Comment: Highly Desirable:>60 Desirable:35-60 High Risk:<35 LDL, Calculated 142 mg/dl [facility] Comment: Desirable:<130 Borderline:130-159 High Risk:>tq=854 Chol/HDL Ratio 3.3 [facility] Fasting? Yes [facility] 11/14/2006 8:30 EDT 11/14/2006 21:26 EDT Maria Fernanda Red MD CHEMISTRY & BLOOD GA S ORDERABLES Performing Organization Address [facility] Co de Phone Number [facility] [address] [place] [address] * HOLD PURPLE TOP (11/14/2006 8:30 EDT) Hold Purple Top EDTA for hematology will be discarded after 48 hours, differential not available after 12 hours. [facility] 11/14/2006 8:30 EDT 11/14/2006 21:26 EDT Maria Fernanda Red MD LAB INFO SERVICE AND SUPPORT & PHONE RESULT Performing Organization Address [facility] Co de Phone Number [facility] [address] [place] [address] documented in this encounter Visit Diagnoses Not on filedocumented in this encounter
--- OUTSIDE RECORDS SUMMARY | 2024-03-20 15:16 | XMS_ITS | Encounter Summary ---
Author Organization [facility] Address [address] [place] [address] Care Team Providers Care Button Tufter Name Role Phone Unavailable Primary Care Provider Unavailabl e Encounter Details Date Type Department Care Team (Late st Contact Info) Description 06/24/2005 9:49 EST Hospital Encounter [facility] [address] [place] [address] Damian Brooke ANP Social History Tobacco Use Types Packs/Day Years Used Date Smoking Tobacco: Never Passive Smoke Exposure: Never Smokeless Tobacco: Never Alcohol Use Standard Drinks/Week Comments Not Currently 1 (1 standard drink = 0.6 oz pur e alcohol) [facility] Utilities Answer Date Recorded In the [...] any time in the past 12 m [facility], were you homeless or living [...] Appointment [facility] Interventional Radiology Unit [address] [place] [address] [phone] 04/02/2024 15:15 EDT Office Visit [facility] Surgical Oncology - [facility] [address] [place], [place] [phone] Adolfo Carreno MD 111 [facility], Level [address] [place] [phone] 04/05/2024 9:30 EDT Telemedicine [facility] - [facility] Palliative Care Services [address] [place], [place] [phone] Chichi Woods MD 111 [facility], [address] [place] [phone] 04/11/2024 15:00 EDT Telemedicine [facility] Hematology & Oncology - [address] [phone] Alisson Carreon MD [address] [place] [address] 2 [place] [phone] 04/13/2024 13:30 EDT Appointment [facility] Hematology & Oncology - [address] 000171 04/13/2024 14:00 EDT Appointment [facility] Hematology & Oncology - [address] [address] 04/16/2024 10:00 EST Telemedicine [facility] - [facility] Palliative Care Services [address] [place] [address] Chichi Woods MD [address] [place] [address] [phone] 04/24/2024 9:00 EST Appointment [facility] Radiology CT Outpatient - [address] 308111 04/24/2024 11:00 EST Appointment [facility] Breast Imaging - [address] 126201 04/27/2024 12:00 EST Appointment [facility] Hematology & Oncology - [address] 909011 05/02/2024 15:00 EST Telemedicine [facility] Hematology & Oncology - [address] 519171 Alisson Carreon MD [address] [place] [address], [facility] [address] [place] [phone] 05/04/2024 10:15 EST Ancillary Procedure [facility] Cardiology - [address] [place] [address] 05/04/2024 11:30 EST Appointment [facility] Hematology & Oncology [address] [address] 05/04/2024 12:00 EST Appointment [facility] Hematology & Oncology [address] [address] 06/12/2024 13:00 EST Appointment [facility] Radiology CT - [address] [address] documented as of this encounter Visit Diagnoses Not on filedocumented in this encounter Additional Health Concerns Infection Onset Date Last Indicated Resolved Time R/O COVID-19 12/12/2023 12/12/2023 12/12/2023 15:3 5 EDT R/O COVID-19 01/08/2024 01/08/2024 01/08/2024 18:2 6 EDT R/O COVID-19 01/16/2024 01/16/2024 01/16/2024 17:5 0 EDT documented as of this encounter
--- OUTSIDE RECORDS SUMMARY | 2024-03-20 15:16 | XMS_ITS | Encounter Summary ---
Author Organization [facility] Address [address] [place] [address] Care Team Providers Care Supervisor Mirror Fabrication Name Role Phone None, Provider Primary Care Provider Maria Fernanda Bender MD Primary Care Provider UnavailLinda Acosta MD Primary Care Provider [phone] Encounter Details Date Type Department Care Team (Late st Contact Info) Description 08/21/2004 Before PRISM Converted Visit (Maple) [facility] - Maple conversion [address] [place] [address] [place] [address] [place] [phone] Social History Tobacco Use Types Packs/Day Years Used Date Smoking Tobacco: Never Assessed Sex and Gender Information Value Date Recorded Sex Assigned at Female 05/17/2019 15:31 EST Gender Identity Female 04/26/2019 13:08 EST Sexual Orientation Bisexual 08/26/2022 10 :47 EDT documented as of this encounter Progress Notes * Annalisa Azevedo MD - 01/20/2011 1129 EDT PROGRESS NOTE HEMATOLOGY/ONCOLOGY DIVISION DATE OF SERVICE: 08/20/2004 Sunshine Padilla is a 44-year-old female here for followup of her DCIS. 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 She was found to have a 2.7-cm area of solid and cribriform DCIS with grade 2 nuclei. The single anterior margin was positive and an inferior margin was close (0.5 cm). ER and SD receptors were positive in 90% and 90% of the cells, respectively. Sunshine is here for a routine followup. She had done quite well with implant reconstruction of her right breast and implant augmentationof her left breast. She has tapered off her hormone replacementtherapy and is taking clonidine and Effexor for her hot flashes and testosterone for sexual dysfunction. She has recently had to increase her clonidine and Effexor and reports hot flashes every one and one- half hour. The rest of her system review is really quite unremarkable, and in general, she feels quite well without new constitutional, cardiovascular, pulmonary, GI, , musculoskeletal, psychiatric, neurologic, or endocrine. CURRENT MEDICATIONS: Include Effexor, clonidine, testosterone and Vagifem. SOCIAL HISTORY: She is here by herself with a performance status of 100%. PHYSICAL EXAM: She looks well, in no acute distress. She is afebrile with stable vital signs. Her skin is warm and dry without jaundice, purpura, or petechiae. Her HEENT exam is benign. Her neck is supple without adenopathy or thyromegaly. Her node exam is negative. Her lungs are clear to auscultation and percussion. Her back is without spinous or CVA tenderness. Her cardiovascular exam is benign with a regular rate and rhythm. Her abdomen is soft and nontender without hepatosplenomegaly. Extremities reveal no clubbing, cyanosis, or edema. Breast exam reveals an implant after mastectomy on the right without nodularity, erythema, or induration. Her left breast also has a subpectoral implant without nodularity, and there are no dominant or discrete masses. IMPRESSION: This is a 44-year-old female diagnosed with DCIS in January of 2004. She has undergone amastectomy and does have a positive anterior margin and a close inferior margin. She is doing well without evidence of disease. She has successfully tapered off her estrogen replacement therapy and is currently working with the [facility] division to treat her hot flashes. PLAN: 1. The patient will return in three months to see Dr. Irizarry and two months to see myself. 2. We discussed followup with either left breast MRI or mammogram, and I think we should do mammogram at this point in time. ANNALISA AZEVEDO MD This document has been electronically signed by ANNALISA AZEVEDO MD on 08/24/2004 13:23:53. - ANNALISA AZEVEDO MD - rf Voice ID: [id number] Document ID: [id number] CC: MARIA FERNANDA IRIZARRY MD documented in this encounter Plan of Treatment Upcoming Encounters Date Type Department Care Team (Late st Contact Info) Description 04/02/2024 10:30 EDT Appointment [facility] Interventional Radiology Unit [address] [place] [address] [phone] 04/02/2024 15:15 EDT Office Visit [facility] Surgical Oncology - [address] [phone] Adolfo Carreno MD [address] [place] [address] 2 [place] [phone] 04/05/2024 9:30 EDT Telemedicine [facility] - [facility] Palliative Care Services [address] [place] [address] [phone] Chichi Woods MD [address] [place] [address] [phone] 04/11/2024 15:00 EDT Telemedicine [facility] Hematology & Oncology [address] [phone] Alisson Carreon MD [address] [place] [address] [phone] 04/13/2024 13:30 EDT Appointment [facility] Hematology & Oncology [address] [phone] 04/13/2024 14:00 EDT Appointment [facility] Hematology & Oncology - [address] [phone] 04/16/2024 10:00 EST Telemedicine [facility] - [facility] Palliative Care Services [address] [place], [place] 028091 Chichi Woods MD 111 [facility], [address] [phone] 04/24/2024 9:00 EST Appointment [facility] Radiology CT Outpatient - [address] [id number] 04/24/2024 11:00 EST Appointment [facility] Breast Imaging - [address] [phone] 04/27/2024 12:00 EST Appointment [facility] Hematology & Oncology - [address] [phone] 05/02/2024 15:00 EST Telemedicine [facility] Hematology & Oncology - [address] 788141 Alisson Carreon MD [address] [place] [address], [facility] [address] [place] [phone] 05/04/2024 10:15 EST Ancillary Procedure [facility] Cardiology [place] [place] [address] 05/04/2024 11:30 EST Appointment [facility] Hematology & Oncology - [address] [phone] 05/04/2024 12:00 EST Appointment [facility] Hematology & Oncology - [address] 046991 06/12/2024 13:00 EST Appointment [facility] Radiology CT - [address] [address] documented as of this encounter Visit Diagnoses Not on filedocumented in this encounter Care Teams Supervisor [employer] Relationship Specialty Start Date End Date None, Provider PCP - General 08/21/09 01/05/11 Maria Fernanda Red MD PCP - General 12/17/08 08/20/09 Linda Blancas MD [address] [place] [address] PCP - General 01/06/11 documented as of this encounter
--- OUTSIDE RECORDS SUMMARY | 2024-03-20 15:16 | XMS_ITS | Encounter Summary ---
Author Organization [facility] Address [address] [place] [address] Care Team Providers Care Non Clinical Advisor Name Role Phone Unavailable Primary Care Provider Unavailabl e Encounter Details Date Type Department Care Team (Latest Contact Info) Description 07/26/2005 21:49 EST Hospital Encounter [address] [address] Alex Stapleton MD [address] [place] [address] 2 [place] [phone] Discharge Disposition: Auto Discharge Social History Tobacco [...] [facility] Interventional Radiology Unit [address] [place] [address] [phone] 04/02/2024 15:15 EDT Office Visit [facility] Surgical Oncology - [address] [phone] Adolfo Carreno MD 111 [facility] 2 [place] [phone] 04/05/2024 9:30 EDT Telemedicine [facility] Palliative Care Services [address] [place] [address] [phone] Chichi Woods MD [address] [place] [address] [phone] 04/11/2024 15:00 EDT Telemedicine [facility] Hematology & Oncology - [address] [address] Alisson Carreon MD [address] [place] [address], Level [address] [place] [phone] 04/13/2024 13:30 EDT Appointment [facility] Hematology & Oncology - [address] [address] 04/13/2024 14:00 EDT Appointment [facility] Hematology & Oncology [address] [address] 04/16/2024 10:00 EST Telemedicine [facility] Palliative Care Services [address] [place] [address] 997201 Chichi Woods MD [address] [place] [address] [phone] 04/24/2024 9:[address] [facility] Radiology CT Outpatient - [address] 201461 04/24/2024 11:00 EST Appointment [facility] Breast Imaging - [address] [phone] 04/27/2024 12:00 EST Appointment [facility] Hematology & Oncology - [address] [address] 05/02/2024 15:00 EST Telemedicine [facility] Hematology & Oncology [address] [phone] Alisson Carreon MD 111 [facility], Level [address] [place] [phone] 05/04/2024 10:15 EST Ancillary Procedure [facility] Cardiology - [address] [place] [address] 05/04/2024 11:30 EST Appointment [facility] Hematology & Oncology [address] 770771 05/04/2024 12:00 EST Appointment [facility] Hematology & Oncology [address] [phone] 06/12/2024 13:[address] [facility] Radiology CT - [address] [phone] documented as of this encounter Procedures Procedure Name Priority Date/Time Associated Diagnosis Comments MR CERVICAL SPINE WO CONTRAST 07/26/2005 22:48 EST documented in this encounter Results * MR CERVICAL SPINE WO CONTRAST (07/26/2005 22:48 EST) Anatomical Region Laterality Modality Other 07/26/2005 22:4 8 EST Narrative 01/10/2009 2:32 EDT BILATERAL HAND PARESTHESIS MRI OF THE CERVICAL SPINE WITHOUT CONTRAST: 07/26/05, 2237 IMPRESSION: 1. Disc degeneration at C4-C5 and C5-C6. 2. Right-sided HNP at C6-C7. CLINICAL HISTORY: Bilateral hand paresthesia. ??Rule out cervical spondylosis or syrinx. TECHNIQUE: Sagittal FSE T1, T2 and transverse gradient echo non-contrast MR images of the cervical spine were obtained. COMPARISON EXAMINATION: None. FINDINGS: The vertebral marrow, the cord signal and the craniocervical junction are normal. ??The C4-C5 and C5-C6 disc spaces are narrowed, in keeping with cervical spondylosis. ??At C6-C7, there is a small, right-sided disc herniation. ??If this is a significant finding, it could cause right C7 radiculopathy. /crista Procedure Note Juliet Maldonado MD - 01/10/2009 BILATERAL HAND PARESTHESIS MRI OF THE CERVICAL SPINE WITHOUT CONTRAST: 07/26/05, 2237 IMPRESSION: 1. Disc degeneration at C4-C5 and C5-C6. 2. Right-sided HNP at C6-C7. CLINICAL HISTORY: Bilateral hand paresthesia. Rule out cervical spondylosis or syrinx. TECHNIQUE: Sagittal FSE T1, T2 and transverse gradient echo non-contrast MR images of the cervical spine were obtained. COMPARISON EXAMINATION: None. FINDINGS: The vertebral marrow, the cord signal and the craniocervical junction are normal. The C4-C5 and C5-C6 disc spaces are narrowed, in keeping with cervical spondylosis. At C6-C7, there is a small, right-sided disc herniation. If this is a significant finding, it could cause right C7 radiculopathy. /crista Alex Stapleton MD IMG MRI ORDERABLES documented in this encounter Visit Diagnoses Not on filedocumented in this encounter
--- OUTSIDE RECORDS SUMMARY | 2024-03-20 15:16 | XMS_ITS | Encounter Summary ---
Author Organization [facility] Address [address] [place] [address] Care Team Providers Care Utilities Operator Name Role Phone Unavailable Primary Care Provider Unavailabl e Encounter Details Date Type Department Care Team (Late st Contact Info) Description 11/30/2004 9:41 EDT Hospital Encounter [facility] - Other [address] [place] [address] Maria Fernanda Red MD Social History Tobacco Use Types Packs/Day Years Used Date Smoking Tobacco: Never Passive Smoke Exposure: Never Smokeless Tobacco: Never Alcohol Use Standard Drinks/Week Comments Not Currently 1 (1 standard drink = 0.6 oz pur e alcohol) [facility] Utilities Answer Date Recorded In the [...] in the past 12 m [facility], were [facility] homeless [facility] living in [facility] [address] [place] [address] [phone] 04/02/2024 15:15 EDT Office Visit [facility] Surgical Oncology - [facility] [address] [place], [place] [phone] Adolfo Carreno MD [address] [facility], Level [address] [place] [phone] 04/05/2024 9:30 EDT Telemedicine [facility] - [facility] Palliative Care Services [address] [place], [place] [phone] Chichi Woods MD 111 [facility], [address] [place] [phone] 04/11/2024 15:00 EDT Telemedicine [facility] Hematology & Oncology - [address] [phone] Alisson Carreon MD [address] [place] [address] 2 [place] [phone] 04/13/2024 13:30 EDT Appointment [facility] Hematology & Oncology - [address] [phone] 04/13/2024 14:00 EDT Appointment [facility] Hematology & Oncology - [address] [address] 04/16/2024 10:00 EST Telemedicine [facility] - [facility] Palliative Care Services [address] [place] [address] Chichi Woods MD [address] [place] [address] [phone] 04/24/2024 9:00 EST Appointment [facility] Radiology CT Outpatient - [address] [id number] 04/24/2024 11:00 EST Appointment [facility] Breast Imaging - [address] [phone] 04/27/2024 12:00 EST Appointment [facility] Hematology & Oncology - [address] 697251 05/02/2024 15:00 EST Telemedicine [facility] Hematology & Oncology - [address] 478021 Alisson Carreon MD [address] [place] [address], [facility] 2 [place] [phone] 05/04/2024 10:15 EST Ancillary Procedure [facility] Cardiology - [address] [place] [address] 05/04/2024 11:30 EST Appointment [facility] Hematology & Oncology [address] [address] 05/04/2024 12:00 EST Appointment [facility] Hematology & Oncology [address] [address] 06/12/2024 13:00 EST Appointment [facility] Radiology CT - [address] [address] documented as of this encounter Visit Diagnoses Not on filedocumented in this encounter Additional Health Concerns Infection Onset Date Last Indicated Resolved Time R/O COVID-19 12/12/2023 12/12/2023 12/12/2023 15:3 5 EDT R/O COVID-19 01/08/2024 01/08/2024 01/08/2024 18:2 6 EDT R/O COVID-19 01/16/2024 01/16/2024 01/16/2024 17:5 0 EDT documented as of this encounter
--- OUTSIDE RECORDS SUMMARY | 2024-03-20 15:16 | XMS_ITS | Encounter Summary ---
Author Organization [facility] Address [address] [place] [address] Care Team Providers Care Gin Pole Operator Name Role Phone Unavailable Primary Care Provider Unavailabl e Encounter Details Date Type Department Care Team (Latest Contact Info) Description 04/14/2005 12:43 EST Hospital Encounter [facility] - Other [address] [place] [address] Maria Fernanda Red MD Discharge Disposition: Auto [...] Appointment [facility] Interventional Radiology Unit [address] [place] [address] [phone] 04/02/2024 15:15 EDT Office Visit [facility] Surgical Oncology - [address] [phone] Adolfo Carreno MD 111 [facility], Level [address] [place] [phone] 04/05/2024 9:30 EDT Telemedicine [facility] Palliative Care Services [address] [place] [address] [phone] Chichi Woods MD [address] [place] [address] [phone] 04/11/2024 15:00 EDT Telemedicine [facility] Hematology & Oncology [address] 115301 Alisson Carreon MD [address] [place] [address], Level [address] [place] [phone] 04/13/2024 13:30 EDT Appointment [facility] Hematology & Oncology [address] 931121 04/13/2024 14:00 EDT Appointment [facility] Hematology & Oncology [address] [address] 04/16/2024 10:00 EST Telemedicine [facility] - [facility] Palliative Care Services [address] [place] [address] [phone] Chichi Woods MD [address] [place] [phone] 04/24/2024 9:00 EST Appointment [facility] Radiology CT Outpatient - [address] [address] 04/24/2024 11:00 EST Appointment [facility] Breast Imaging - [address] [id number] 04/27/2024 12:00 EST Appointment [facility] Hematology & Oncology - [address] 193061 05/02/2024 15:00 EST Telemedicine [facility] Hematology & Oncology - [address] 342201 Alisson Carreon MD 111 [facility], [facility], Level [address] [place] [phone] 05/04/2024 10:15 EST Ancillary Procedure [facility] Cardiology - [address] [place] [address] 05/04/2024 11:30 EST Appointment [facility] Hematology & Oncology - [address] [phone] 05/04/2024 12:00 EST Appointment [facility] Hematology & Oncology [address] [phone] 06/12/2024 13:00 EST Appointment [facility] Radiology CT - [address] [phone] documented as of this encounter Procedures Procedure Name Priority Date/Time Associated Diagnosis Comments HOLD PURPLE TOP Routine 04/14/2005 9:15 EST HEPATIC FUNCTION PANEL (ALB,ALK PHOS,ALT,AST,DBIL,T OT WILY,TOT PROT) Routine 04/14/2005 9:15 EST documented in this encounter Results * LIVER FUNCTION TESTS (04/14/2005 9:15 EST) Albumin 4.1 3.4 - 4.9 g/dl [facility] Total Protein 7.3 6.5 - 8.3 g/dl [facility] Total Alkaline Phosphatase 97 38 - 126 U/L [facility] ALT 31 9 - 52 U/L [facility] AST 37 15 - 46 U/L [facility] Unconjugated Bilirubin 0.4 0.1 - 1.1 mg/dl [facility] Conjugated Bilirubin 0.0 0.0 - 0.3 mg/dl [facility] Bilirubin, Total 0.6 0.2 - 1.3 mg/dl [facility] 04/14/2005 9:15 EST 04/14/2005 15:35 EST Maria Fernanda Red MD CHEMISTRY & BLOOD GA S ORDERABLES Performing Organization Address [facility] Co de Phone Number [facility] [address] [place] [address] * HOLD PURPLE TOP (04/14/2005 9:15 EST) Hold Purple Top EDTA for hematology will be discarded after 48 hours, differential not available after 12 hours. [facility] 04/14/2005 9:15 EST 04/14/2005 15:35 EST Maria Fernanda Red MD LAB INFO SERVICE AND SUPPORT & PHONE RESULT Performing Organization Address [facility] Co de Phone Number [facility] [address] [place] [address] documented in this encounter Visit Diagnoses Not on filedocumented in this encounter
--- OUTSIDE RECORDS SUMMARY | 2024-03-20 15:16 | XMS_ITS | Encounter Summary ---
Author Organization [facility] Address [address] [place] [address] Care Team Providers Care Forex Trader Name Role Phone Unavailable Primary Care Provider Unavailabl e Encounter Details Date Type Department Care Team (Late st Contact Info) Description 08/09/2005 9:07 [facility] Hospital Encounter [facility] [address] [place] [address] Linda Darby MD [address] [place] [phone] Social History Tobacco Use Types Packs/Day Years Used Date Smoking Tobacco: Never Passive Smoke Exposure: Never Smokeless Tobacco: Never Alcohol Use Standard Drinks/Week Comments Not Currently 1 (1 standard drink = 0.6 oz pur e alcohol) [facility] Utilities Answer Date Recorded In the past 12 months has e [employer], gas, oil, or water [employer] threatened to shut off services in your [...] Recorded In the last 10 days, have rere u been in contact with someone who was confirmed or suspected to have Coronavirus/COVID-19? No / Unsure 08/31/2021 10:30 EDT documented as of this encounter Plan of Treatment Upcoming Encounters Date Type Department Care Team (Late st Contact Info) Description 04/02/2024 10:30 EDT Appointment [facility] Interventional Radiology Unit [address] [place] [address] 04/02/2024 15:15 EDT Office Visit [facility] Surgical Oncology - [facility] [address] [place] [address] Adolfo Carreno MD 111 [facility], Level 2 [place] [phone] 04/05/2024 9:30 EDT Telemedicine [facility] Palliative Care Services [address] [place] [address] Chichi Woods MD 111 [facility], [address] [phone] 04/11/2024 15:00 EDT Telemedicine [facility] Hematology & Oncology - [address] [phone] Alisson Carreon MD [address] [place] [address], [facility] [address] [place] [phone] 04/13/2024 13:30 EDT Appointment [facility] Hematology & Oncology [address] [phone] 04/13/2024 14:00 EDT Appointment [facility] Hematology & Oncology [address] 150601 04/16/2024 10:00 EST Telemedicine [facility] - [facility] Palliative Care Services [address] [place] [address] [phone] Chichi Woods MD [address] [place] [address], [address] [phone] 04/24/2024 9:00 EST Appointment [facility] Radiology CT Outpatient - [address] [id number] 04/24/2024 11:00 EST Appointment [facility] Breast Imaging - [address] 193571 04/27/2024 12:00 EST Appointment [facility] Hematology & Oncology - [address] [phone] 05/02/2024 15:00 EST Telemedicine [facility] Hematology & Oncology - [address] 086161 Alisson Carreon MD [address] [place] [address], [facility] [address] [place] [phone] 05/04/2024 10:15 EST Ancillary Procedure [facility] Cardiology - [address] [place] [address] 05/04/2024 11:30 EST Appointment [facility] Hematology & Oncology [address] [address] 05/04/2024 12:00 EST Appointment [facility] Hematology & Oncology [address] [address] 06/12/2024 13:00 EST Appointment [facility] Radiology CT [address] [phone] documented as of this encounter Visit Diagnoses Not on filedocumented in this encounter Additional Health Concerns Infection Onset Date Last Indicated Resolved Time R/O COVID-19 12/12/2023 12/12/2023 12/12/2023 15:3 5 EDT R/O COVID-19 01/08/2024 01/08/2024 01/08/2024 18:2 6 EDT R/O COVID-19 01/16/2024 01/16/2024 01/16/2024 17:5 0 EDT documented as of this encounter
--- OUTSIDE RECORDS SUMMARY | 2024-03-20 15:16 | XMS_ITS | Encounter Summary ---
Author Organization [facility] Address [address] [place] [address] Care Team Providers Care Waist Presser Name Role Phone Maria Fernanda Red MD Primary Care Provider Unavailab le Encounter Details Date Type Department Care Team (Late st Contact Info) Description 08/18/2005 Before PRISM Converted Visit (Maple) [facility] - Maple conversion [address] [place] [address] Alex Stapleton MD [address] [place] [address] [address] [place] [phone] Social History Tobacco Use Types Packs/Day Years Used Date Smoking Tobacco: Never Assessed Sex and Gender Information Value Date Recorded Sex Assigned at Female 05/17/2019 15:31 EST Gender Identity Female 04/26/2019 13:08 EST Sexual Orientation Bisexual 08/26/2022 10 :47 EDT documented as of this encounter Progress Notes * Alex Stapleton MD - 05/22/2009 6000 EST August 18, 2005 Maria Fernanda Red MD [facility] [address] [place] [address] Red: I saw Sunshine in neurological follow up today. Since last seen, she has had no significant changesin her episodic upper extremity paresthesias. She has developed no new neurological symptoms since last seen. She has undergone multiple diagnostic evaluations, including cervical spine MRI at [facility], which revealed some mild degenerative disk disease with disk bulge at C6-7 on the right, which does not clinically correlate with any of her symptoms. Her episodic arm symptoms are on the left morethan the right. She also had a plain film of the upper thorax to evaluate for a cervical rib and a question of thoracic outlet syndrome, which was negative. I also have screening laboratory investigations for causes of chorea, as she had some minor choreiform movements on examination. These were unremarkable. She had an nonsignificant elevation in her serum copper and a mildly elevated ceruloplasmin. There is currently no evidence of need for concern for these, and I think these are just incidental findings. CURRENT MEDICATIONS: Effexor, clonidine, AndroGel, Vagifem, black cohosh, kava kava, and evening primrose. ALLERGIES/INTOLERANCES: None known. REVIEW OF SYSTEMS: A 18-point review of systems is documented in the Patient Intake Questionnaire and is notable only for hot flashes. Examination is not performed today. The majority of the visit was spent reviewing laboratory and radiographic results and in patient education. In summary, episodic upper extremity paresthesias of unclear etiology. I could find no neurogenic cause for her symptoms, and I have suggested we follow them conservatively. 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 She will follow up on an as-needed basis in the future. Please contact me with any questions regarding her management. Sincerely, Signed by Alex Stapleton MD 08/23/2005 09:23 Benjamín Viveros MD Alex Stapleton MD - Alex Stapleton MD P - LBR Job ID: [id number] Document ID: [id number] cc: Maria Fernanda Red MD documented in this encounter Plan of Treatment Upcoming Encounters Date Type Department Care Team (Late st Contact Info) Description 04/02/2024 10:[address] [facility] Interventional Radiology Unit [address] [place] [address] 04/02/2024 15:[address] [facility] Surgical Oncology [address] [phone] Adolfo Carreno MD [address] [place] [address] [address] [place] [phone] 04/05/2024 9:30 EDT Telemedicine [facility] Palliative Care Services [address] [place] [address] 535121 Chichi Woods MD [address] [place] [address] [phone] 04/11/2024 15:00 EDT Telemedicine [facility] Hematology & Oncology - [address] [phone] Alisson Carreon MD [address] [place] [address] [address] [place] [phone] 04/13/2024 13:30 EDT Appointment [facility] Hematology & Oncology - [address] [phone] 04/13/2024 14:00 EDT Appointment [facility] Hematology & Oncology - [address] 566001 04/16/2024 10:00 EST Telemedicine [facility] - [facility] Palliative Care Services [address] [place] [address] 596151 Chichi Woods MD [address] [place] [address] [phone] 04/24/2024 9:00 EST Appointment [facility] Radiology CT Outpatient - [address] [id number] 04/24/2024 11:[address] [facility] Breast Imaging - [facility] [address] [place] [address] [place] [address] 04/27/2024 12:00 EST Appointment [facility] Hematology & Oncology [address] [address] 05/02/2024 15:00 EST Telemedicine [facility] Hematology & Oncology [address] 516441 Alisson Carreon MD [address] [place] [address], Level [address] [place] [phone] 05/04/2024 10:[address] [facility] Cardiology - [address] [place] [address] 05/04/2024 11:30 EST Appointment [facility] Hematology & Oncology [address] [address] 05/04/2024 12:00 EST Appointment [facility] Hematology & Oncology [address] [phone] 06/12/2024 13:00 EST Appointment [facility] Radiology CT - [address] [phone] documented as of this encounter Visit Diagnoses Not on filedocumented in this encounter Care Teams Waist Presser Relationship Specialty Start Date End Date Maria Fernanda Red MD PCP - General 12/17/08 08/20/09 documented as of this encounter
--- OUTSIDE RECORDS SUMMARY | 2024-03-20 15:16 | XMS_ITS | Encounter Summary ---
Author Organization [facility] Address [address] [place] [address] Care Team Providers Care Ingot Stripper Name Role Phone Maria Fernanda Red MD Primary Care Provider Unavailab le Encounter Details Date Type Department Care Team (Late st Contact Info) Description 02/18/2005 Before PRISM Converted Visit (Maple) [facility] - Maple conversion [address] [place] [address] [place] [address] [address], [place] [phone] Social History Tobacco Use Types Packs/Day Years Used Date Smoking Tobacco: Never Assessed Sex and Gender Information Value Date Recorded Sex Assigned at Female 05/17/2019 15:31 EST Gender Identity Female 04/26/2019 13:08 EST Sexual Orientation Bisexual 08/26/2022 10 :47 EDT documented as of this encounter Progress Notes * Annalisa Frey MD - 08/13/2009 1101 EST DIVISION OF HEMATOLOGY / ONCOLOGY PROGRESS/FOLLOWUP NOTE - 02/18/2005 Sunshine is a 44-year-old female here for follow up of her DCIS. 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 She was found to have a 2.7-cm area of solid and cribriform DCIS with grade 2 nuclei. The single anterior margin was positive and an inferior margin was close (0.5 cm). Sunshine is here for routine follow up. She feels quite well. Her hot flashes have stabilized with the addition of natural therapy including black cohosh, kava kava, and evening primrose. She believes that the addition of naturopathic therapy has decreased her hot flash intensity about 50%. She hasnoticed a 4 kg weight gain and does still have hot flashes. She offers no new constitutional, cardiovascular, pulmonary, GI, , musculoskeletal, physiatric, neurologic, endocrine, or heme symptoms. CURRENT MEDICATIONS: Include Effexor, quinidine, testosterone cream, and Vagisil as well as naturopathic therapy with black cohosh, kava kava, and evening primrose and multivitamins. SOCIAL HISTORY: She is here by herself with a performance status of 100%. PHYSICAL EXAM: On physical exam, she looks well in no acute distress. She is afebrile with stable vital signs. Her skin is warm and dry without jaundice, purpura, or petechiae. Her HEENT exam is benign. Her neck is supple without adenopathy or thyromegaly. Her nodeexam is negative. Her lungs are clear to auscultation and percussion. Her back is without spinous or CVA tenderness. Her cardiovascular exam is benign with a regular rate and rhythm. Her abdomen is soft and nontender without hepatosplenomegaly. Breast exam revealed an augmented left breast without dominant or discrete mass. Her right breast shows a mastectomy with an implant reconstruction, again, no dominant or discrete mass. 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 PLAN: 1. She will follow up in three months to see Dr. Kearney and six months to see myself. 2. She will call if she relocates and needs assistance with identifying practioners. Signed by Annalisa Frey MD 02/27/2005 20:34 Fco Frey MDHematology / Oncology AttendingAnnalisa Frey MD Annalisa Frey MD Hematology / Oncology Attending - Annalisa Frey MD P - BC Job ID: [id number] Document ID: [id number] cc: MD Abby Hutton MD Christine A Murray, MD Sara Packard, MD documented in this encounter Plan of Treatment Upcoming Encounters Date Type Department Care Team (Late st Contact Info) Description 04/02/2024 10:30 EDT Appointment [facility] Interventional Radiology Unit [address] [place] [address] [phone] 04/02/2024 15:15 EDT Office Visit [facility] Surgical Oncology - [address] [phone] Adolfo Carreno MD [address] [place] [address] [phone] 04/05/2024 9:30 EDT Telemedicine [facility] - [facility] Palliative Care Services [address] [place] [address] [phone] Chichi Woods MD [address] [place] [phone] 04/11/2024 15:00 EDT Telemedicine [facility] Hematology & Oncology [address] [phone] Alisson Crareon MD [address] [place] [address] [phone] 04/13/2024 13:30 EDT Appointment [facility] Hematology & Oncology [address] [phone] 04/13/2024 14:00 EDT Appointment [facility] Hematology & Oncology [address] [phone] 04/16/2024 10:00 EST Telemedicine [facility] - [facility] Palliative Care Services [address] [place] [address] [phone] Chichi Woods MD [address] [place] [address], [place] [address] [place] [phone] 04/24/2024 9:00 EST Appointment [facility] Radiology CT Outpatient - [address] [id number] 04/24/2024 11:00 EST Appointment [facility] Breast Imaging - [facility] [place] [address] [place], [place] 072401 04/27/2024 12:00 EST Appointment [facility] Hematology & Oncology - [address] [phone] 05/02/2024 15:00 EST Telemedicine [facility] Hematology & Oncology - [address] [phone] Alisson Carreon MD [address] [place] [address], Level [address] [place] [phone] 05/04/2024 10:15 EST Ancillary Procedure [facility] Cardiology - [address] [place], [place] [phone] 05/04/2024 11:30 EST Appointment [facility] Hematology & Oncology - [address] [phone] 05/04/2024 12:00 EST Appointment [facility] Hematology & Oncology [address] [phone] 06/12/2024 13:00 EST Appointment [facility] Radiology CT - [address] 727111 documented as of this encounter Visit Diagnoses Not on filedocumented in this encounter Care Teams Ingot Stripper Relationship Specialty Start Date End Date Maria Fernanda Red MD PCP - General 12/17/08 08/20/09 documented as of this encounter
--- OUTSIDE RECORDS SUMMARY | 2024-03-20 15:16 | XMS_ITS | Encounter Summary ---
Author Organization [facility] Address [address] [place] [address] Care Team Providers Care Phosphatic Fertilizer Supervisor Name Role Phone Maria Fernanda Red MD Primary Care Provider Unavailab le Encounter Details Date Type Department Care Team (Late st Contact Info) Description 11/23/2005 Before PRISM Converted Visit (Maple) [facility] - Maple conversion [address] [place] [address] Damian Brooke ANP Social History Tobacco Use Types Packs/Day Years Used Date Smoking Tobacco: Never Assessed Sex and Gender Information Value Date Recorded Sex Assigned at Female 05/17/2019 15:31 EST Gender Identity Female 04/26/2019 13:08 EST Sexual Orientation Bisexual 08/26/2022 10 :47 EDT documented as of this encounter Progress Notes * Damian Brooke NP - 06/06/2009 0130 EST OF SURGICAL ONCOLOGY - [facility] PROGRESS/FOLLOWUP NOTE - 11/23/2005 Identification: The patient is a 45-year-old female with history of DCIS of the right breast, treated with total mastectomy. She is here for follow-up. Surgical procedure and date: 01/30/04 Right total mastectomy. Bilateral reconstruction at same procedure by Dr. Pavan Batres. Surgical pathology: DCIS, 2.7 cm maximal dimension, moderate nuclear grade. Margin status: Positive at the anterior skin margin. Adjuvant radiation: None. Adjuvant hormonal therapy: None. Interval history Sendy returns for posttreatment surveillance. She continues to do very well, and denies any new areas of concern. She is very pleased with her cosmetic outcome and reconstructed implants. She otherwise is in good health. She has had a very stressful recent past with leaving the her job with [employer] after 18 years, going through a difficult divorce, establishing herself with a new partner, and she is currently taking the summer off to reevaluate where to go next. She has gained some weight and hopes to address this over the next few months. She continues to exercise with competitive dancing. She has significant hot flashes and it using a number of medications and alternative therapies to address this. She follows carefully with a naturopathic provider locally. She has also started new medication for osteopenia based on a recent bone density study. Current medications: Multivitamin, Unisom, clonidine, Effexor, black cohosh, cava cava, evening primrose oil, AndroGel, Women's Menocaps and Boniva. Allergies: Sulfa. CONCRETE SCULPTOR history: Menarche at age 13. . She used oral contraceptives x 15 years and had a premature menopause at age 38. She used estrogen cream x 4 ?? years prior to her diagnosis. Family history: Paternal aunt with breast cancer in her early 30s. Father had bladder cancer at 65.Maternal uncle with bladder cancer at an unknown age. She has a large family with no other history of breast or ovarian cancer. Social history She is and very happily establishing herself in a new relationship. 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 O: On physical examination is a very pleasant and healthy-appearing 45-year-old woman in no distress. Her skin is warm and dry. Her sclerae are anicteric. She has no cervical, clavicular, or axillaryadenopathy. Her breasts are examined in the sitting and supine position. She has a subpectoral right breast implant and prepectoral left breast implant for augmentation. There is no suspicious palpabl e abnormality bilaterally. appreciated. The right breast reveals nipple tattooing. Abdomen is flat,soft, and nontender, with no hepatosplenomegaly. Left breast mammogram done 05/17 showed scattered fibroglandular density with no evidence of malignancy. A: Patient is 2 years status post right total mastectomy for DCIS. There is no clinical evidence for recurrence. P: Patient will no longer follow with Dr. Annalisa Frey and will return to [facility] every 6 months for a minimum of 5 years. She will be due for a mammogram again in 06/19. She is asked to return at any point if she develops new changes. She is asked to follow with her CONCRETE SCULPTOR provider regarding a question of gabapentin for reduction of hot flashes. Signed by DANIELA Gamez 12/01/2005 14:[address] ANP DANIELA Gamez - DANIELA Gamez P - KD Job ID: [id number] Document ID: [id number] cc: Maria Fernanda Red MD Cancer Data Registry Scar Marino ND documented in this encounter Plan of Treatment Upcoming Encounters Date Type Department Care Team (Late st Contact Info) Description 04/02/2024 10:[address] [facility] Interventional Radiology Unit [address] [place] [address] [phone] 04/02/2024 15:[address] [facility] Surgical Oncology - [address] [phone] Adolfo Carreno MD [address] [place] [address], [facility] [address] [place] [phone] 04/05/2024 9:30 EDT Telemedicine [facility] - [facility] Palliative Care Services [address] [place] [address] [phone] Chichi Woods MD [address] [place] [address] [phone] 04/11/2024 15:00 EDT Telemedicine [facility] Hematology & Oncology - [address] [phone] Alisson Carreon MD 111 [facility], [facility] [address] [place] [phone] 04/13/2024 13:30 EDT Appointment [facility] Hematology & Oncology - [address] [phone] 04/13/2024 14:00 EDT Appointment [facility] Hematology & Oncology - [address] 138281 04/16/2024 10:00 EST Telemedicine [facility] - [facility] Palliative Care Services [address] [place] [address] [phone] Chichi Woods MD [address] [place] [address], [address] [phone] 04/24/2024 9:00 EST Appointment [facility] Radiology CT Outpatient - [address] [id number] 04/24/2024 11:[address] [facility] Breast Imaging - [facility] [address] [phone] 04/27/2024 12:00 EST Appointment [facility] Hematology & Oncology - [address] [phone] 05/02/2024 15:00 EST Telemedicine [facility] Hematology & Oncology - [address] [phone] Alisson Carreon MD [address] [place] [address], Level [address] [place] [phone] 05/04/2024 10:[address] [facility] Cardiology - [address] [place], [place] [phone] 05/04/2024 11:30 EST Appointment [facility] Hematology & Oncology [address] [address] 05/04/2024 12:00 EST Appointment [facility] Hematology & Oncology [address] [address] 06/12/2024 13:00 EST Appointment [facility] Radiology CT - [address] [address] documented as of this encounter Visit Diagnoses Not on filedocumented in this encounter Care Teams Phosphatic Fertilizer Supervisor Relationship Specialty Start Date End Date Maria Fernanda Red MD PCP - General 12/17/08 08/20/09 documented as of this encounter
--- OUTSIDE RECORDS SUMMARY | 2024-03-20 15:16 | XMS_ITS | Encounter Summary ---
Author Organization [facility] Address [address] [place] [address] Care Team Providers Care Last Pattern Grader Name Role Phone Maria Fernanda Red MD Primary Care Provider Unavailab le Encounter Details Date Type Department Care Team (Late st Contact Info) Description 06/24/2005 Before PRISM Converted Visit (Maple) [facility] - Maple conversion [address] [place] [address] Damian Brooke ANP Social History Tobacco Use Types Packs/Day Years Used Date Smoking Tobacco: Never Assessed Sex and Gender Information Value Date Recorded Sex Assigned at Female 05/17/2019 15:31 EST Gender Identity Female 04/26/2019 13:08 EST Sexual Orientation Bisexual 08/26/2022 10 :47 EDT documented as of this encounter Progress Notes * Damian Brooke NP - 08/12/20092038 EST DIVISION OF SURGICAL ONCOLOGY - BRE[facility] PROGRESS/FOLLOWUP NOTE - 06/24/2005 Identification The patient is a 43-year-old female with history of DCIS of the [...] history Sendy returns for posttreatment surveillance. She is doing very well with no new breast complaints. She has followed with Dr. Batres and was released from his care within the last two months. She did have nipple tattooing, but in the process of creating a nipple, she developed an infection last summer. She is quite pleased, regardless, with her results. She notes otherwise excellent health. She has gained a few pounds but anticipates increasing her exercise to address this. Medications: Multivitamin, Effexor, black cohosh, cava cava, evening primrose oil, AndroGel, and Womens Menocaps. Allergies: Sulfa. PATTERN GRADER CUTTER history: . Menarche at age 13. She used oral contraceptives x 15 years and had a premature menopause at age 38. She used estrogen cream x 4 ?? years prior to her diagnosis. Family history: Paternal aunt with breast cancer in her early 30s. Father with bladder cancer at 65. Maternal uncle with bladder cancer at an unknown age. She has a large family with no other historyof breast or ovarian cancer. 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 O: On physical examination is a very pleasant, well-appearing, 44-year-old woman in no distress. Her skin is warm and dry. Her sclerae are anicteric. has no spinous bony pain or CVA tenderness. Her lungs are clear to auscultation. Her heart reveals regular rate and rhythm. She has no cervical, clavicular, or axillary adenopathy. Her breastexam reveals a total mastectomy scar in the right breast with a subpectoral implant and nipple tattooing. She has palpable scar tissue at the 6:00 position ofthe tattooed areola where she had previous infection. There isno other palpable nodularity or suspicious change. The left breast has a prepectoral implant for augmentation. She has no suspicious palpa ble abnormality. is flat, soft, and nontender, with no hepatosplenomegaly. Left breast mammogram done 05/17 showed scattered fibroglandular density with no evidence of malignancy. A: Patient is 1 ?? years status post right total mastectomy for DCIS. She has no clinical evidence for recurrence. P: Patient is scheduled to follow with Dr. Annalisa Frey in three months and will return to the [facility] in six months. She will be due for a mammogram in one year. Signed by DANIELA Gamez 06/30/2005 15:[address] ANP DANIELA Gamez - DANIELA Gamez A - kkb Job ID: [id number] Document ID: [id number] cc: Maria Fernanda Red MD Cancer Data Registry documented in this encounter Plan of Treatment Upcoming Encounters Date Type Department Care Team (Late st Contact Info) Description 04/02/2024 10:30 EDT Appointment [facility] Interventional Radiology Unit [address] [place] [address] [phone] 04/02/2024 15:15 EDT Office Visit [facility] Surgical Oncology - [address] [phone] Adolfo Carreno MD [address] [place] [address] [address] [place] [phone] 04/05/2024 9:30 EDT Telemedicine [facility] - [facility] Palliative Care Services [address] [place] [address] [phone] Chichi Woods MD [address] [place] [phone] 04/11/2024 15:00 EDT Telemedicine [facility] Hematology & Oncology [address] [phone] Alisson Carreon MD [address] [place] [address] [address] [place] [phone] 04/13/2024 13:30 EDT Appointment [facility] Hematology & Oncology [address] [phone] 04/13/2024 14:00 EDT Appointment [facility] Hematology & Oncology - [address] [address] 04/16/2024 10:00 EST Telemedicine [facility] - [facility] Palliative Care Services [address] [place] [address] [phone] Chichi Woods MD [address] [place] [address], [address] [phone] 04/24/2024 9:00 EST Appointment [facility] Radiology CT Outpatient - [address] [id number] 04/24/2024 11:00 EST Appointment [facility] Breast Imaging - [facility] [address] [id number] 04/27/2024 12:00 EST Appointment [facility] Hematology & Oncology - [address] [phone] 05/02/2024 15:00 EST Telemedicine [facility] Hematology & Oncology - [address] [phone] Alisson Carreon MD [address] [place] [address], [facility] [address] [place] [phone] 05/04/2024 10:15 EST Ancillary Procedure [facility] Cardiology [place] [address] 05/04/2024 11:30 EST Appointment [facility] Hematology & Oncology - [address] [address] 05/04/2024 12:00 EST Appointment [facility] Hematology & Oncology - [address] [phone] 06/12/2024 13:00 EST Appointment [facility] Radiology CT - [address] [address] documented as of this encounter Visit Diagnoses Not on filedocumented in this encounter Care Teams Last Pattern Grader Relationship Specialty Start Date End Date Maria Fernanda Red MD PCP - General 12/17/08 08/20/09 documented as of this encounter
--- OUTSIDE RECORDS SUMMARY | 2024-03-20 15:16 | XMS_ITS | Encounter Summary ---
Author Organization [facility] Address [address] [place] [address] Care Team Providers Care Principal Security Architect Name Role Phone Unavailable Primary Care Provider Unavailabl e Encounter Details Date Type Department Care Team (Late st Contact Info) Description 08/02/2005 14:52 EST Hospital Encounter [facility] [address] [place] [address] Ochoa Oconnor MD Social History Tobacco Use Types Packs/Day Years Used Date Smoking Tobacco: Never Passive Smoke Exposure: Never Smokeless Tobacco: Never Alcohol Use Standard Drinks/Week Comments Not Currently 1 (1 standard drink = 0.6 oz pur e alcohol) [facility] Utilities Answer Date Recorded In the [...] [facility] Interventional Radiology Unit [address] [place] [address] [phone] 04/02/2024 15:15 EDT Office Visit [facility] Surgical Oncology - [facility] [address] [place], [place] [phone] Adolfo Carreno MD 111 [facility], Level [address] [place] [phone] 04/05/2024 9:30 EDT Telemedicine [facility] - [facility] Palliative Care Services [address] [place], [place] [phone] Chichi Woods MD [address] [facility] [place] [address] [place] [phone] 04/11/2024 15:00 EDT Telemedicine [facility] Hematology & Oncology - [address] [phone] Alisson Carreon MD [address] [place] [address] [address] [place] [phone] 04/13/2024 13:30 EDT Appointment [facility] Hematology & Oncology - [address] [phone] 04/13/2024 14:00 EDT Appointment [facility] Hematology & Oncology - [address] [address] 04/16/2024 10:00 EST Telemedicine [facility] - [facility] Palliative Care Services [address] [place] [address] Chichi Woods MD [address] [place] [phone] 04/24/2024 9:00 EST Appointment [facility] Radiology CT Outpatient - [address] 875131 04/24/2024 11:00 EST Appointment [facility] Breast Imaging - [address] [phone] 04/27/2024 12:00 EST Appointment [facility] Hematology & Oncology - [address] [phone] 05/02/2024 15:00 EST Telemedicine [facility] Hematology & Oncology - [address] [phone] Alisson Carreon MD [address] [place] [address], [facility] [address] [place] [phone] 05/04/2024 10:15 EST Ancillary Procedure [facility] Cardiology [place] [place] [address] 05/04/2024 11:30 EST Appointment [facility] Hematology & Oncology [address] [address] 05/04/2024 12:00 EST Appointment [facility] Hematology & Oncology [address] [address] 06/12/2024 13:00 EST Appointment [facility] Radiology CT - [address] [address] documented as of this encounter Visit Diagnoses Not on filedocumented in this encounter Additional Health Concerns Infection Onset Date Last Indicated Resolved Time R/O COVID-19 12/12/2023 12/12/2023 12/12/2023 15:3 5 EDT R/O COVID-19 01/08/2024 01/08/2024 01/08/2024 18:2 6 EDT R/O COVID-19 01/16/2024 01/16/2024 01/16/2024 17:5 0 EDT documented as of this encounter
--- OUTSIDE RECORDS SUMMARY | 2024-03-20 15:16 | XMS_ITS | Encounter Summary ---
Author Organization [facility] Address [address] [place] [address] Care Team Providers Care [employer] Principal Name Role Phone None, Provider Primary Care Provider Maria Fernanda Bender MD Primary Care Provider Unavailab le Encounter Details Date Type Department Care Team (Late st Contact Info) Description 07/21/2004 Results Only [facility] - [address] [address] Catherine Riley MD [address] [place], [place] [phone] Social History Tobacco Use Types Packs/Day Years [...] [facility] Inter[facility] [address] [place] [address] [phone] 04/02/2024 15:15 EDT Office Visit [facility] Surgical Oncology - [address] [phone] Adolfo Carreno MD 111 [facility], Level [address] [place] [phone] 04/05/2024 9:30 EDT Telemedicine [facility] - [facility] Palliative Care Services [address] [place] [address] [phone] Chichi Woods MD [address] [place] [phone] 04/11/2024 15:00 EDT Telemedicine [facility] Hematology & Oncology - [address] [phone] Alisson Carreon MD [address] [place] [address] Level [address] [place] [phone] 04/13/2024 13:30 EDT Appointment [facility] Hematology & Oncology - [address] [address] 04/13/2024 14:00 EDT Appointment [facility] Hematology & Oncology [address] [address] 04/16/2024 10:00 EST Telemedicine [facility] Palliative Care Services [address] [place] [address] [phone] Chichi Woods MD [address] [place] [address] [phone] 04/24/2024 9:00 EST Appointment [facility] Radiology CT Outpatient - [address] [phone] 04/24/2024 11:00 EST Appointment [facility] Breast Imaging - [address] [address] 04/27/2024 12:00 EST Appointment [facility] Hematology & Oncology - [address] 455231 05/02/2024 15:00 EST Telemedicine [facility] Hematology & Oncology [address] 507891 Alisson Carreon MD 111 [facility], Level [address] [place] [phone] 05/04/2024 10:15 EST Ancillary Procedure [facility] Cardiology - [address] [place] [address] 05/04/2024 11:30 EST Appointment [facility] Hematology & Oncology [address] [phone] 05/04/2024 12:00 EST Appointment [facility] Hematology & Oncology [address] 350341 06/12/2024 13:00 EST Appointment [facility] Radiology CT - [address] [phone] documented as of this encounter Procedures Procedure Name Priority Date/Time Associated Diagnosis Comments ESTRADIOL, ADULTS Routine 07/21/2004 10: 39 EST TESTOSTERONE, TOTAL AND FREE Routine 07/21/2004 10:39 EST documented in this encounter Results * (ABNORMAL) TOTAL & FREE TESTOSTERONE (07/21/2004 10:39 EST) Sex Hormone Binding Globulin 54.5 18 - 114 nmol/L [facility] Comment:Reference range is f or non- females. Testosterone, Total 108(H) 14 - 76 ng/dl [facility] Testosterone, Free 1.4 0.1 - 1.5 ng/dl [facility] Comment: Test not recommended in patients with plasma protein abnormalities. 07/21/2004 10:3 9 EST 07/21/2004 10:45 EST Catherine Riley MD CHEMISTRY & BLOOD GAS ORDERABLES [facility] [address] [place] [address] * ESTRADIOL (07/21/2004 10:39 EST) Estradiol 17 pg/ml [facility] Comment: By day in cycle relative to LH peak: Follicular Phase: -12 days: 11-69 ?-4 days: 63-165 Midcycle ?-1 day: 146-526 Luteal Phase ?+2 days: 33-150 ?+6 days: 68-196 ? +12 days: 36-133 Postmenopausal: ??0-37 07/21/2004 10:3 9 EST 07/21/2004 10:45 EST Catherine Riley MD CHEMISTRY & BLOOD GAS ORDERABLES Performing Organization Address [facility] de Phone Number [facility] [address] [place] [address] documented in this encounter Visit Diagnoses Not on filedocumented in this encounter Care Teams [employer] Principal Relationship Specialty Start Date End Date None, Provider PCP - General 08/21/09 01/05/11 Maria Fernanda Red MD PCP - General 12/17/08 08/20/09 documented as of this encounter
--- OUTSIDE RECORDS SUMMARY | 2024-03-20 15:16 | XMS_ITS | Encounter Summary ---
Author Organization [facility] Address [address] [place] [address] Care Team Providers Care Granite Cutter Name Role Phone Unavailable Primary Care Provider Unavailabl e Encounter Details Date Type Department Care Team (Late st Contact Info) Description 08/19/2005 13:11 [facility] [address] [place] [address] [place] [address] [place] [address] [phone] Social History Tobacco Use Types Packs/Day Years Used Date Smoking Tobacco: Never Passive Smoke Exposure: Never Smokeless Tobacco: Never Alcohol Use Standard Drinks/Week Comments Not Currently 1 (1 standard drink = 0.6 oz pur e alcohol) [facility] Utilities Answer Date Recorded In the past 12 months has [facility] [employer], gas, oil, or water [employer] threatened to shut off services in your [...] Appointment [facility] Interventional Radiology Unit [address] [place] [address] 04/02/2024 15:15 EDT Office Visit [facility] Surgical Oncology - [facility] [address] [phone] Adoflo Carreno MD 111 [facility], Level 2 [place] [phone] 04/05/2024 9:30 EDT Telemedicine [facility] Palliative Care Services [address] [place] [address] Chichi Woods MD 111 [facility], [address] [phone] 04/11/2024 15:00 EDT Telemedicine [facility] Hematology & Oncology - [address] 778011 Alisson Carreon MD [address] [place] [address], [facility] 2 [place] [phone] 04/13/2024 13:30 EDT Appointment [facility] Hematology & Oncology - [address] [phone] 04/13/2024 14:00 EDT Appointment [facility] Hematology & Oncology - [address] [phone] 04/16/2024 10:00 EST Telemedicine [facility] - [facility] Palliative Care Services [address] [place] [address] [phone] Chichi Woods MD [address] [place] [phone] 04/24/2024 9:00 EST Appointment [facility] Radiology CT Outpatient - [address] [id number] 04/24/2024 11:00 EST Appointment [facility] Breast Imaging - [address] 182361 04/27/2024 12:00 EST Appointment [facility] Hematology & Oncology - [address] 554351 05/02/2024 15:00 EST Telemedicine [facility] Hematology & Oncology - [address] 968161 Alisson Carreon MD [address] [place] [address], [facility] 2 [place] [phone] 05/04/2024 10:15 EST Ancillary Procedure [facility] Cardiology [place] [place] [address] 05/04/2024 11:30 EST Appointment [facility] Hematology & Oncology [address] [address] 05/04/2024 12:00 EST Appointment [facility] Hematology & Oncology [address] [address] 06/12/2024 13:00 EST Appointment [facility] Radiology CT [address] [phone] documented as of this encounter Visit Diagnoses Not on filedocumented in this encounter Additional Health Concerns Infection Onset Date Last Indicated Resolved Time R/O COVID-19 12/12/2023 12/12/2023 12/12/2023 15:3 5 EDT R/O COVID-19 01/08/2024 01/08/2024 01/08/2024 18:2 6 EDT R/O COVID-19 01/16/2024 01/16/2024 01/16/2024 17:5 0 EDT documented as of this encounter
--- OUTSIDE RECORDS SUMMARY | 2024-03-20 15:16 | XMS_ITS | Encounter Summary ---
Author Organization [facility] Address [address] [place] [address] Care Team Providers Care Senior Trial Attorney Name Role Phone Maria Fernanda Red MD Primary Care Provider Unavailab le Encounter Details Date Type Department Care Team (Late st Contact Info) Description 08/19/2005 Before PRISM Converted Visit (Maple) [facility] - Maple conversion [address] [place] [address] [place] [address] [address] [phone] Social History Tobacco Use Types Packs/Day Years Used Date Smoking Tobacco: Never Assessed Sex and Gender Information Value Date Recorded Sex Assigned at Female 05/17/2019 15:31 EST Gender Identity Female 04/26/2019 13:08 EST Sexual Orientation Bisexual 08/26/2022 10 :47 EDT documented as of this encounter Progress Notes * Annalisa Frey MD - 05/23/2009 1042 EST DIVISION OF HEMATOLOGY / ONCOLOGY PROGRESS/FOLLOWUP NOTE - 08/19/2005 Sunshine is a 45-year-old female here for 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 She was found to have a 2.7-cm area of solid and cribriform DCIS with grade}2 nuclei. The single anterior margin was positive and an inferior margin was close (0.5 cm). Sunshine is here for a routine followup. She is doing quite well. She is off all hormone replacement therapy, and her hot flashes are tolerable. She is using a combination of conventionaland naturopathic therapy. She has had some weight gain, but this isstabling and improving actually. The rest of her system review is reveals no other new constitutional, cardiovascular, pulmonary, GI, , musculoskeletal, psychiatric, neurologic, endocrine, or heme symptoms. CURRENT MEDICATIONS: Include clonidine, Effexor, Vagifem, black cohosh, kava kava, evening primrose, and multivitamins. 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 PHYSICAL EXAM: She looks well, in no acute distress. She is afebrile with a temperature of 36.1??, a pulsea blood pressure of 116/72, and her weight is 61.9 kg. Her skin is warm and dry without [...] cyanosis, or edema. Breast exam reveals an intact left breast with augmentation. No dominant or discrete ma sses. Her breast shows an implant reconstruction with a reconstructed nipple. She has no dominant or discrete masses. IMPRESSION: This is a 45-year-old female diagnosed with DCIS in January 2004. She was treated with aright mastectomy and found to have an area of 2.7 cm with a solid and cribriformDCIS pattern with gradenuclei. She did have a positive anterior margin and a close inferior margin with 0.5 cm. She wasnot treated with hormonal therapy. She is off her hormone replacement therapyand using the above medications all to treat her hot flashes and menopausal symptoms. PLAN: 1. She is two years out from her diagnosis and will therefore be discharged from clinic. 2. [facility], and I am happy to see her back, if she has any questions or concerns. Signed by Annalisa Frey MD 08/24/2005 11:48 Fco Frey MDHematology / Oncology AttendingAnnalisa Frey MD Annalisa Frey MD Hematology / Oncology Attending - Annalisa Frey MD A - rf Job ID: [id number] Document ID: [id number] cc: MD Catherine Hackett MD Sara Packard, MD documented in this encounter Plan of Treatment Upcoming Encounters Date Type Department Care Team (Late st Contact Info) Description 04/02/2024 10:30 EDT Appointment [facility] Interventional Radiology Unit [address] [place] [address] [phone] 04/02/2024 15:15 EDT Office Visit [facility] Surgical Oncology - [place] [phone] Adolfo Carreno MD [address] [place] [address] [address] [phone] 04/05/2024 9:30 EDT Telemedicine [facility] - [facility] Palliative Care Services [address] [place] [address] [phone] Chichi Woods MD [address] [place] [address], [address] [phone] 04/11/2024 15:00 EDT Telemedicine [facility] Hematology & Oncology - [address] [phone] Alisson Carreon MD [address] [place] [address] 2 [place] [phone] 04/13/2024 13:30 EDT Appointment [facility] Hematology & Oncology - [address] [address] 04/13/2024 14:00 EDT Appointment [facility] Hematology & Oncology [address] [phone] 04/16/2024 10:00 EST Telemedicine [facility] - [facility] [address] [place] [address] [phone] Chichi Woods MD [address] [place] [address] [phone] 04/24/2024 9:00 EST Appointment [facility] Radiology CT Outpatient - [address] [id number] 04/24/2024 11:00 EST Appointment [facility] Breast Imaging - [facility] [address] [id number] 04/27/2024 12:00 EST Appointment [facility] Hematology & Oncology [address] 942941 05/02/2024 15:00 EST Telemedicine [facility] Hematology & Oncology [address] [phone] Alisson Carreon MD [address] [place] [address], Level 2 [place] [phone] 05/04/2024 10:15 EST Ancillary Procedure [facility] Cardiology - [address] [place] [address] 05/04/2024 11:30 EST Appointment [facility] Hematology & Oncology [address] [id number] 05/04/2024 12:00 EST Appointment [facility] Hematology & Oncology [address] 813611 06/12/2024 13:00 EST Appointment [facility] Radiology CT - [address] [address] documented as of this encounter Visit Diagnoses Not on filedocumented in this encounter Care Teams Senior Trial Attorney Relationship Specialty Start Date End Date Maria Fernanda Red MD PCP - General 12/17/08 08/20/09 documented as of this encounter
--- OUTSIDE RECORDS SUMMARY | 2024-03-20 15:16 | XMS_ITS | Encounter Summary ---
Author Organization [facility] Address [address] [place] [address] Care Team Providers Care Indoor Sports Centre Manager Name Role Phone None, Provider Primary Care Provider Maria Fernanda Bender MD Primary Care Provider Unavailab le Encounter Details Date Type Department Care Team (Late st Contact Info) Description 08/27/2004 Results Only [facility] - [address] [phone] Catherine Riley MD [address] [place], [place] [phone] Social History Tobacco Use Types Packs/Day Years [...] Appointment [facility] Interventional Radiology Unit [address] [place] [address] [phone] 04/02/2024 15:15 EDT Office Visit [facility] Surgical Oncology - [address] [phone] Adolfo Carreno MD 111 [facility], Level 2 [place] [phone] 04/05/2024 9:30 EDT Telemedicine [facility] - [facility] Palliative Care Services [address] [place] [address] [phone] Chichi Woods MD [address] [place] [address] [phone] 04/11/2024 15:00 EDT Telemedicine [facility] Hematology & Oncology - [address] 107861 Alisson Carreon MD [address] [place] [address] Level 2 [place] [phone] 04/13/2024 13:30 EDT Appointment [facility] Hematology & Oncology - [address] [address] 04/13/2024 14:00 EDT Appointment [facility] Hematology & Oncology [address] [address] 04/16/2024 10:00 EST Telemedicine [facility] Palliative Care Services [address] [place] [address] [phone] Chichi Woods MD [address] [place] [address] [phone] 04/24/2024 9:00 EST Appointment [facility] Radiology CT Outpatient - [address] 045591 04/24/2024 11:00 EST Appointment [facility] Breast Imaging - [address] [address] 04/27/2024 12:00 EST Appointment [facility] Hematology & Oncology - [address] 357701 05/02/2024 15:00 EST Telemedicine [facility] Hematology & Oncology [address] [address] Alisson Carreon MD 111 [facility], Level 2 [place] [phone] 05/04/2024 10:15 EST Ancillary Procedure [facility] Cardiology - [address] [place] [address] 05/04/2024 11:30 EST Appointment [facility] Hematology & Oncology [address] 000701 05/04/2024 12:00 EST Appointment [facility] Hematology & Oncology [address] 255751 06/12/2024 13:00 EST Appointment [facility] Radiology CT - [address] 801051 documented as of this encounter Procedures Procedure Name Priority Date/Time Associated Diagnosis Comments TSH Routine 08/27/2004 12:50 EST documented in this encounter Results * TSH (08/27/2004 12:50 EST) TSH 0.62 0.35 - 5.50 uIU/ml [facility] 08/27/2004 12:5 0 EST 08/27/2004 12:53 EST Catherine Riley MD CHEMISTRY & BLOOD GAS ORDERABLES [facility] [address] [place] [address] documented in this encounter Visit Diagnoses Not on filedocumented in this encounter Care Teams Indoor Sports Centre Manager Relationship Specialty Start Date End Date None, Provider PCP - General 08/21/09 01/05/11 Maria Fernanda Red MD PCP - General 12/17/08 08/20/09 documented as of this encounter
--- OUTSIDE RECORDS SUMMARY | 2024-03-20 15:16 | XMS_ITS | Encounter Summary ---
Author Organization [facility] Address [address] [place] [address] Care Team Providers Care Morning News Anchor Name Role Phone Unavailable Primary Care Provider Unavailabl e Encounter Details Date Type Department Care Team (Late st Contact Info) Description 05/12/2005 7:55 EST Hospital Encounter [facility] - [facility] [address] [place] [address] Pavan Batres MD Social History Tobacco Use [...] any time in the past 12 m [facility], were you homeless or living in [...] Appointment [facility] Interventional Radiology Unit [address] [place] [address] [phone] 04/02/2024 15:15 EDT Office Visit [facility] Surgical Oncology - [facility] [address] [place], [place] [phone] Adolfo Carreno MD 111 [facility], Level 2 [place] [phone] 04/05/2024 9:30 EDT Telemedicine [facility] - [facility] Pall[facility] Care Services [address] [place], [place] [phone] Chichi Woods MD 111 [facility] [address] [place] [phone] 04/11/2024 15:00 EDT Telemedicine [facility] Hematology & Oncology - [address] [phone] Alisson Carreon MD [address] [place] [address] 2 [place] [phone] 04/13/2024 13:30 EDT Appointment [facility] Hematology & Oncology - [address] 038331 04/13/2024 14:00 EDT Appointment [facility] Hematology & Oncology - [address] [address] 04/16/2024 10:00 EST Telemedicine [facility] - [facility] Palliative Care Services [address] [place] [address] Chichi Woods MD [address] [place] [address] [phone] 04/24/2024 9:00 EST Appointment [facility] Radiology CT Outpatient - [address] [id number] 04/24/2024 11:00 EST Appointment [facility] Breast Imaging - [address] 383801 04/27/2024 12:00 EST Appointment [facility] Hematology & Oncology - [address] [phone] 05/02/2024 15:00 EST Telemedicine [facility] Hematology & Oncology - [address] 538521 Alisson Carreon MD [address] [place] [address], [facility] 2 [place] [phone] 05/04/2024 10:15 EST Ancillary Procedure [facility] Cardiology - [address] [place] [address] 05/04/2024 11:30 EST Appointment [facility] Hematology & Oncology [address] [address] 05/04/2024 12:00 EST Appointment [facility] Hematology & Oncology [address] [address] 06/12/2024 13:00 EST Appointment [facility] Radiology CT - [address] [address] documented as of this encounter Visit Diagnoses Not on filedocumented in this encounter Additional Health Concerns Infection Onset Date Last Indicated Resolved Time R/O COVID-19 12/12/2023 12/12/2023 12/12/2023 15:3 5 EDT R/O COVID-19 01/08/2024 01/08/2024 01/08/2024 18:2 6 EDT R/O COVID-19 01/16/2024 01/16/2024 01/16/2024 17:5 0 EDT documented as of this encounter
--- OUTSIDE RECORDS SUMMARY | 2024-03-20 15:16 | XMS_ITS | Encounter Summary ---
Author Organization [facility] Address [address] [place] [address] Care Team Providers Care Edi Programmer Analyst Name Role Phone Unavailable Primary Care Provider Unavailabl e Encounter Details Date Type Department Care Team (Late st Contact Info) Description 09/07/2005 11:02 [facility] Hospital [facility] [address] [place] [address] Catherine Riley MD [address] [phone] Social History Tobacco Use Types Packs/Day Years Used Date Smoking Tobacco: Never Passive Smoke Exposure: Never Smokeless Tobacco: Never Alcohol Use Standard Drinks/Week Comments Not Currently 1 (1 standard drink = 0.6 oz pur e alcohol) [facility] Utilities Answer Date Recorded In the past 12 months has [facility] [employer], gas, oil, or water [employer] threatened to shut off services in your [...] [facility] Interventional Radiology Unit [address] [place] [address] 04/02/2024 15:15 EDT Office Visit [facility] Surgical Oncology - [facility] [address] [place] [address] Adolfo Carreno MD 111 [facility], Level 2 [place] [phone] 04/05/2024 9:30 EDT Telemedicine [facility] Palliative Care Services [address] [place] [address] Chichi Woods MD 111 [facility], [address] [phone] 04/11/2024 15:00 EDT Telemedicine [facility] Hematology & Oncology - [address] [phone] Alisson Carreon MD [address] [place] [address], [facility] 2 [place] [phone] 04/13/2024 13:30 EDT Appointment [facility] Hematology & Oncology [address] [phone] 04/13/2024 14:00 EDT Appointment [facility] Hematology & Oncology [address] 414021 04/16/2024 10:00 EST Telemedicine [facility] - [facility] Palliative Care Services [address] [place] [address] Chichi Woods MD [address] [place] [address], [address] [phone] 04/24/2024 9:00 EST Appointment [facility] Radiology CT Outpatient - [address] 626171 04/24/2024 11:00 EST Appointment [facility] Breast Imaging - [address] 278321 04/27/2024 12:00 EST Appointment [facility] Hematology & Oncology - [address] [phone] 05/02/2024 15:00 EST Telemedicine [facility] Hematology & Oncology - [address] 956291 Alisson Carreon MD [address] [place] [address], [facility] 2 [place] [phone] 05/04/2024 10:15 EST Ancillary Procedure [facility] Cardiology - [address] [place] [address] 05/04/2024 11:30 EST Appointment [facility] Hematology & Oncology [address] [address] 05/04/2024 12:00 EST Appointment [facility] Hematology & Oncology [address] [address] 06/12/2024 13:00 EST Appointment [facility] Radiology CT [address] [phone] documented as of this encounter Visit Diagnoses Not on filedocumented in this encounter Additional Health Concerns Infection Onset Date Last Indicated Resolved Time R/O COVID-19 12/12/2023 12/12/2023 12/12/2023 15:3 5 EDT R/O COVID-19 01/08/2024 01/08/2024 01/08/2024 18:2 6 EDT R/O COVID-19 01/16/2024 01/16/2024 01/16/2024 17:5 0 EDT documented as of this encounter
--- OUTSIDE RECORDS SUMMARY | 2024-03-20 15:16 | XMS_ITS | Encounter Summary ---
Author Organization [facility] Address [address] [place] [address] Care Team Providers Care Varnishing Unit Operator Name Role Phone Unavailable Primary Care Provider Unavailabl e Encounter Details Date Type Department Care Team (Late st Contact Info) Description 06/30/2005 14:09 EST Hospital Encounter [address] [address] Quita Babb PA-C [address] [phone] Alex Stapleton MD [address] [place] [phone] Discharge Disposition: Auto Discharge Social History Tobacco [...] Appointment [facility] Interventional Radiology Unit [address] [place] [address] 04/02/2024 15:15 EDT Office Visit [facility] Surgical Oncology - [address] [phone] Adolfo Carreno MD [address] [place] [address] 2 [place] [phone] 04/05/2024 9:30 EDT Telemedicine [facility] Palliative Care Services [address] [place] [address] [phone] Chichi Woods MD [address] [place] [address] [phone] 04/11/2024 15:00 EDT Telemedicine [facility] Hematology & Oncology - [address] [phone] Alisson Carreon MD [address] [place] [address] 2 [place] [phone] 04/13/2024 13:30 EDT Appointment [facility] Hematology & Oncology - [address] 077681 04/13/2024 14:00 EDT Appointment [facility] Hematology & Oncology - [address] [address] 04/16/2024 10:00 EST Telemedicine [facility] Palliative Care Services [address] [place] [address] [phone] Chichi Woods MD [address] [place] [address] [phone] 04/24/2024 9:00 EST Appointment [facility] Radiology CT Outpatient - [address] 152131 04/24/2024 11:00 EST Appointment [facility] Breast Imaging - [facility] [address] [place] [address] [place] [address] 04/27/2024 12:00 EST Appointment [facility] Hematology & Oncology [address] 527571 05/02/2024 15:00 EST Telemedicine [facility] Hematology & Oncology [address] 176491 Alisson Carreon MD [address] [place] [address], Level 2 [place] [phone] 05/04/2024 10:15 EST Ancillary Procedure [facility] Cardiology [place] [address] 05/04/2024 11:30 EST Appointment [facility] Hematology & Oncology - [address] [phone] 05/04/2024 12:00 EST Appointment [facility] Hematology & Oncology [address] [phone] 06/12/2024 13:00 EST Appointment [facility] Radiology CT - [address] 677701 documented as of this encounter Visit Diagnoses Not on filedocumented in this encounter
--- OUTSIDE RECORDS SUMMARY | 2024-03-20 15:16 | XMS_ITS | Encounter Summary ---
Author Organization [facility] Address [address] [place] [address] Care Team Providers Care Shipping And Receiving Weigher Name Role Phone Unavailable Primary Care Provider Unavailabl e Encounter Details Date Type Department Care Team (Late st Contact Info) Description 08/27/2004 9:40 EST Hospital Encounter [facility] - Other [address] [place] [address] Catherine Riley MD [address] [place], [place] [phone] Social History Tobacco Use Types Packs/Day Years Used Date Smoking Tobacco: Never Passive Smoke Exposure: Never Smokeless Tobacco: Never Alcohol Use Standard Drinks/Week Comments Not Currently 1 (1 standard drink = 0.6 oz pur e alcohol) [facility] Utilities Answer Date Recorded In the past 12 months has [facility] [employer], gas, oil, or water [employer] threatened to shut off services in your [...] [facility] [address] [place] [address] 04/02/2024 15:15 EDT Office Visit [facility] Surgical Oncology - [facility] [address] [phone] Adolfo Carreno MD 111 [facility], Level 2 [place] [phone] 04/05/2024 9:30 EDT Telemedicine [facility] Palliative Care Services [address] [place] [address] Chichi Woods MD 111 [facility], [address] [phone] 04/11/2024 15:00 EDT Telemedicine [facility] Hematology & Oncology - [address] 130331 Alisson Carreon MD [address] [place] [address], [facility] [address] [place] [phone] 04/13/2024 13:30 EDT Appointment [facility] Hematology & Oncology [address] [phone] 04/13/2024 14:00 EDT Appointment [facility] Hemat[facility] & Oncology [address] [phone] 04/16/2024 10:[address] [facility] - [facility] Palliative Care Services [address] [place] [address] [phone] Chichi Woods MD [address] [place] [address], [address] [phone] 04/24/2024 9:00 EST Appointment [facility] Radiology CT Outpatient - [address] [id number] 04/24/2024 11:00 EST Appointment [facility] Breast Imaging - [address] [phone] 04/27/2024 12:00 EST Appointment [facility] Hematology & Oncology - [address] [phone] 05/02/2024 15:00 EST Telemedicine [facility] Hematology & Oncology - [address] [phone] Alisson Carreon MD [address] [place] [address], [facility] 2 [place] [phone] 05/04/2024 10:15 EST Ancillary Procedure [facility] Cardiology - [address] [place] [address] 05/04/2024 11:30 EST Appointment [facility] Hematology & Oncology [address] [address] 05/04/2024 12:00 EST Appointment [facility] Hematology & Oncology [address] [address] 06/12/2024 13:00 EST Appointment [facility] Radiology CT [address] [phone] documented as of this encounter Visit Diagnoses Not on filedocumented in this encounter Additional Health Concerns Infection Onset Date Last Indicated Resolved Time R/O COVID-19 12/12/2023 12/12/2023 12/12/2023 15:3 5 EDT R/O COVID-19 01/08/2024 01/08/2024 01/08/2024 18:2 6 EDT R/O COVID-19 01/16/2024 01/16/2024 01/16/2024 17:5 0 EDT documented as of this encounter
--- OUTSIDE RECORDS SUMMARY | 2024-03-20 15:16 | XMS_ITS | Encounter Summary ---
Author Organization [facility] Address [address] [place] [address] Care Team Providers Care Platform Consultant Name Role Phone Unavailable Primary Care Provider Unavailabl e Encounter Details Date Type Department Care Team (Late st Contact Info) Description 06/11/2005 10:00 EST - 06/11/2005 11:59 EST Hospital Encounter [facility] - [address] [address] Catherine Riley MD [address] [phone] [place] [address] [phone] Discharge Disposition: Auto Discharge Social History Tobacco [...] [facility] Interventional Radiology Unit [address] [place] [address] 04/02/2024 15:15 EDT Office Visit [facility] Surgical Oncology - [facility] [place] [address] [place], [place] [phone] Adolfo Carreno MD [address] [place] [address] 2 [place] [phone] 04/05/2024 9:30 EDT Telemedicine [facility] Palliative Care Services [address] [place] [address] Chichi Woods MD [address] [place] [phone] 04/11/2024 15:00 EDT Telemedicine [facility] Hematology & Oncology - [address] [address] Alisson Carreon MD [address] [place] [address] 2 [place] [phone] 04/13/2024 13:30 EDT Appointment [facility] Hematology & Oncology - [address] [phone] 04/13/2024 14:00 EDT Appointment [facility] Hematology & Oncology - [address] [phone] 04/16/2024 10:00 EST Telemedicine [facility] Palliative Care Services [address] [place] [address] [phone] Chichi Woods MD [address] [place] [phone] 04/24/2024 9:00 EST Appointment [facility] Radiology CT Outpatient - [address] [phone] 04/24/2024 11:00 EST Appointment [facility] Breast Imaging - [address] [address] 04/27/2024 12:00 EST Appointment [facility] Hematology & Oncology [address] [phone] 05/02/2024 15:00 EST Telemedicine [facility] Hematology & Oncology [address] [phone] Alisson Carreon MD [address] [place] [address], Level [address] [place] [phone] 05/04/2024 10:15 EST Ancillary Procedure [facility] Cardiology - [address] [place] [address] 05/04/2024 11:30 EST Appointment [facility] Hematology & Oncology [address] [id number] 05/04/2024 12:00 EST Appointment [facility] Hematology & Oncology [address] [id number] 06/12/2024 13:00 EST Appointment [facility] Radiology CT - [address] [phone] documented as of this encounter Procedures Procedure Name Priority Date/Time Associated Diagnosis Comments GORDON PUENTE DIAG UNI DIGITAL 06/11/2005 10:34 EST documented in this encounter Results * GORDON PUENTE DIAG UNI DIGITAL (06/11/2005 10:34 EST) Anatomical Region Laterality Modality Other 06/11/2005 10:3 4 EST Narrative 01/10/2009 0:18 EDT DX UNI MAMMO/ LT S/P RT TOTAL MASCETOMY 01/30/04 SCREEN LT Comparison is made to films from 06/10/2004 and films from 11/21/2003 and films from 11/13/2003 and films from 05/13/2003. Left Breast Findings: (cad used to interpret routine digital): There are scattered fibroglandular densities. A normal-appearing retro-pectoral, saline implant is present. There are no other significant findings. No significant masses, calcifications or other abnormalities are seen. IMPRESSION: LEFT BREAST - CATEGORY 2 A normal-appearing retro-pectoral, saline implant. Benign, no evidence of malignancy. Normal interval follow-up is recommended in 12 months. OVERALL ASSESSMENT - BENIGN END OF IMPRESSION I have personally reviewed the images and the above interpretation and agree with the findings. Procedure Note Brendan, Ivania Kaufman MD / Ana Purdy MD - 01/10/2009 DX UNI MAMMO/ LT S/P RT TOTAL MASCETOMY 01/30/04 SCREEN LT Comparison is made to films from 06/10/2004 and films from 11/21/2003 and films from 11/13/2003 and films from 05/13/2003. Left Breast Findings: (cad used to interpret routine digital): There are scattered fibroglandular densities. A normal-appearing retro-pectoral, saline implant is present. There are no other significant findings. No significant masses, calcifications or other abnormalities are seen. IMPRESSION: LEFT BREAST - CATEGORY 2 A normal-appearing retro-pectoral, saline implant. Benign, no evidence of malignancy. Normal interval follow-up is recommended in 12 months. OVERALL ASSESSMENT - BENIGN END OF IMPRESSION I have personally reviewed the images and the above interpretation and agree with the findings. Maria Fernanda Red MD IMG MAMMOGRAPHY JAIMEE ACOSTA documented in this encounter Visit Diagnoses Not on filedocumented in this encounter
--- OUTSIDE RECORDS SUMMARY | 2024-03-20 15:16 | XMS_ITS | Encounter Summary ---
Author Organization [facility] Address [address] [place] [address] Care Team Providers Care Foster Winder Name Role Phone Unavailable Primary Care Provider Unavailabl e Encounter Details Date Type Department Care Team (Late st Contact Info) Description 01/06/2005 11:42 EDT Hospital Encounter [facility] - Other [address] [place] [address] Pavan Batres MD Social History Tobacco Use Types Packs/Day Years Used Date Smoking Tobacco: Never Passive Smoke Exposure: Never Smokeless Tobacco: Never Alcohol Use Standard Drinks/Week Comments Not Currently 1 (1 standard drink = 0.6 oz pur e alcohol) [facility] Utilities Answer Date Recorded In [...] Appointment [facility] Interventional Radiology Unit [address] [place] [phone] 04/02/2024 15:15 EDT Office Visit [facility] Surgical Oncology - [facility] [address], [place] [phone] Adolfo Carreno MD 111 [facility], Level [address] [place] [phone] 04/05/2024 9:30 EDT Telemedicine [facility] - [facility] Palliative Care Services [address] [place], [place] [phone] Chichi Woods MD 111 [facility], [address] [place] [phone] 04/11/2024 15:00 EDT Telemedicine [facility] Hematology & Oncology - [address] 109721 Alisson Carreon MD [address] [place] [address] 2 [place] [phone] 04/13/2024 13:30 EDT Appointment [facility] Hematology & Oncology - [address] [phone] 04/13/2024 14:00 EDT Appointment [facility] Hematology & Oncology - [address] [address] 04/16/2024 10:00 EST Telemedicine [facility] - [facility] Palliative Care Services [address] [place] [address] Chichi Woods MD [address] [place] [phone] 04/24/2024 9:00 EST Appointment [facility] Radiology CT Outpatient - [address] [id number] 04/24/2024 11:00 EST Appointment [facility] Breast Imaging - [address] [phone] 04/27/2024 12:00 EST Appointment [facility] Hematology & Oncology - [address] [phone] 05/02/2024 15:00 EST Telemedicine [facility] Hematology & Oncology - [address] [phone] Alisson Carreon MD [address] [place] [address], [facility] 2 [place] [phone] 05/04/2024 10:15 EST Ancillary Procedure [facility] Cardiology - [place] [place] [address] 05/04/2024 11:30 EST Appointment [facility] Hematology & Oncology [address] [address] 05/04/2024 12:00 EST Appointment [facility] Hematology & Oncology [address] [address] 06/12/2024 13:00 EST Appointment [facility] Radiology CT - [address] [address] documented as of this encounter Visit Diagnoses Not on filedocumented in this encounter Additional Health Concerns Infection Onset Date Last Indicated Resolved Time R/O COVID-19 12/12/2023 12/12/2023 12/12/2023 15:3 5 EDT R/O COVID-19 01/08/2024 01/08/2024 01/08/2024 18:2 6 EDT R/O COVID-19 01/16/2024 01/16/2024 01/16/2024 17:5 0 EDT documented as of this encounter
--- OUTSIDE RECORDS SUMMARY | 2024-03-20 15:16 | XMS_ITS | Encounter Summary ---
Author Organization [facility] Address [address] [place] [address] Care Team Providers Care Chief Contract Officer Name Role Phone Unavailable Primary Care Provider Unavailabl e Encounter Details Date Type Department Care Team (Latest Contact Info) Description 12/10/2004 21:50 EDT Hospital Encounter [address] [address] Maria Fernanda Red MD Discharge Disposition: Auto [...] [facility] [address] [place] [address] 04/02/2024 15:15 EDT Office Visit [facility] Surgical Oncology - [address] [phone] Adolfo Carreno MD [address] [place] [address], Level [address] [place] [phone] 04/05/2024 9:30 EDT Telemedicine [facility] Palliative Care Services [address] [place] [address] [phone] Chichi Woods MD [address] [place] [phone] 04/11/2024 15:00 EDT Telemedicine [facility] Hematology & Oncology [address] [address] Alisson Carreon MD [address] [place] [address], Level [address] [place] [phone] 04/13/2024 13:30 EDT Appointment [facility] Hematology & Oncology [address] [phone] 04/13/2024 14:00 EDT Appointment [facility] Hematology & Oncology [address] [address] 04/16/2024 10:00 EST Telemedicine [facility] - [facility] Palliative Care Services [address] [place] [address] [phone] Chichi Woods MD [address] [place] [phone] 04/24/2024 9:00 EST Appointment [facility] Radiology CT Outpatient - [address] [phone] 04/24/2024 11:00 EST Appointment [facility] Breast Imaging - [address] [phone] 04/27/2024 12:00 EST Appointment [facility] Hematology & Oncology - [address] 488791 05/02/2024 15:00 EST Telemedicine [facility] Hematology & Oncology - [address] [address] Alisson Carreon MD 111 [facility], [facility], Level 2 [place] [phone] 05/04/2024 10:15 EST Ancillary Procedure [facility] Cardiology - [address] [place] [address] 05/04/2024 11:30 EST Appointment [facility] Hematology & Oncology - [address] [phone] 05/04/2024 12:00 EST Appointment [facility] Hematology & Oncology [address] [phone] 06/12/2024 13:00 EST Appointment [facility] Radiology CT - [address] [phone] documented as of this encounter Procedures Procedure Name Priority Date/Time Associated Diagnosis Comments MR ANGIO HEAD,BRAIN W/WO CONTRAST 12/10/2004 22:47 EDT documented in this encounter Results * MR ANGIO HEAD,BRAIN W/WO CONTRAST (12/10/2004 22:47 EDT) Anatomical Region Laterality Modality Other 12/10/2004 22:4 7 EDT Narrative 01/16/2009 4:24 EDT COITAL HEADACHES R/O VASCUAL PATHOLOGY (MVP) MRI OF THE BRAIN WITH AND WITHOUT CONTRAST AND MR ANGIOGRAPHY OF THE COW: 12/10/2004, 22:06 PM IMPRESSIONS: Normal MRI of the brain and normal MR angiography of the COW. CLINICAL HISTORY: Severe ??headaches. ??Rule out vascular pathology. TECHNIQUE: Sagittal T1 FLAIR, transverse T2 FLAIR, FSE T2, diffusion and gradient echo non-contrast MR images of the brain were performed. Transverse T1 FSE scans of the brain were done following contrast administration. ??Non-contrast 3D TOF images of the [place] were performed with targeted MIP reformations. FINDINGS: MR angiography of the COW shows no aneurysms. ??Vascular malformations are not identified. MRI of the brain following contrast shows no tumor. ??The ventricles and sulci are age appropriate. ??There is no midline shift. ??On the gradient-echo sequences, intracranial bleed is not identified. Recent or remote CVA are not demonstrated. ??Normal flow void is seen in the intracranial vessels. /tns Procedure Note Juliet Maldonado MD - 01/16/2009 COITAL HEADACHES R/O VASCUAL PATHOLOGY (MVP) MRI OF THE BRAIN WITH AND WITHOUT CONTRAST AND MR ANGIOGRAPHY OF THE COW: 12/10/2004, 22:06 PM IMPRESSIONS: Normal MRI of the brain and normal MR angiography of the COW. CLINICAL HISTORY: Severe headaches. Rule out vascular pathology. TECHNIQUE: Sagittal T1 FLAIR, transverse T2 FLAIR, FSE T2, diffusion and gradient echo non-contrast MR images of the brain were performed. Transverse T1 FSE scans of the brain were done following contrast administration. Non-contrast 3D TOF images of the twenty[place]nine [place] were performed with targeted MIP reformations. FINDINGS: MR angiography of the COW shows no aneurysms. Vascular malformations are not identified. MRI of the brain following contrast shows no tumor. The ventricles and sulci are age appropriate. There is no midline shift. On the gradient-echo sequences, intracranial bleed is not identified. Recent or remote CVA are not demonstrated. Normal flow void is seen in the intracranial vessels. /tns Maria Fernanda Red MD G MRI ORDERABLES documented in this encounter Visit Diagnoses Not on filedocumented in this encounter
--- OUTSIDE RECORDS SUMMARY | 2024-03-20 15:16 | XMS_ITS | Encounter Summary ---
Author Organization [facility] Address [address] [place] [address] Care Team Providers Care Sign Fabricator Name Role Phone Unavailable Primary Care Provider Unavailabl e Encounter Details Date Type Department Care Team (Latest Contact Info) Description 05/31/2005 17:34 EST Hospital Encounter [facility] - Other [address] [place] [address] Maria Fernanda Red MD Discharge Disposition: Home [...] Appointment [facility] Interventional Radiology Unit [address] [place] [address] 04/02/2024 15:15 EDT Office Visit [facility] Surgical Oncology - [address] [address] Adolfo Carreno MD 111 [facility], Level 2 [place] [phone] 04/05/2024 9:30 EDT Telemedicine [facility] Palliative Care Services [address] [place] [address] [phone] Chichi Woods MD [address] [place] [phone] 04/11/2024 15:00 EDT Telemedicine [facility] Hematology & Oncology [address] 7101[address] Alisson Carreon MD [address] [place] [address], Level 2 [place] [phone] 04/13/2024 13:30 EDT Appointment [facility] Hematology & Oncology [address] 477371 04/13/2024 14:00 EDT Appointment [facility] Hematology & Oncology [address] [phone] 04/16/2024 10:00 EST Telemedicine [facility] - [facility] Palliative Care Services [address] [place] [address] [phone] Chichi Woods MD [address] [place] [address] [phone] 04/24/2024 9:00 EST Appointment [facility] Radiology CT Outpatient - [address] [id number] 04/24/2024 11:00 EST Appointment [facility] Breast Imaging - [address] 915141 04/27/2024 12:00 EST Appointment [facility] Hematology & Oncology - [address] [phone] 05/02/2024 15:00 EST Telemedicine [facility] Hematology & Oncology - [address] [address] Alisson Carreon MD 111 [facility], [facility], Level 2 [place] [phone] 05/04/2024 10:15 EST Ancillary Procedure [facility] Cardiology - [address] [place] [address] 05/04/2024 11:30 EST Appointment [facility] Hematology & Oncology - [facility] [address], [place] 370991 05/04/2024 12:00 EST Appointment [facility] Hematology & Oncology [address] 718031 06/12/2024 13:00 EST Appointment [facility] Radiology CT - [facility] [address] [place], [place] [phone] documented as of this encounter Procedures Procedure Name Priority Date/Time Associated Diagnosis Comments THYROID CASCADE Routine 05/31/2005 10:05 EST JODY TITER Routine 05/31/2005 10:05 EST COMPLETE BLOOD COUNT Routine 05/31/2005 10:05 EST C REACTIVE PROTEIN Routine 05/31/2005 10 :05 EST ANTI NUCLEAR AB (JODY), IFA Routine 05/31/2005 10:05 EST TESTOSTERONE Routine 05/31/2005 10:05 EST LIPID PROFILE (INCLUDES CHOLESTEROL, TRIGLYCERIDES, HDL, LDL) Routine 05/31/2005 10:05 EST COMPREHENSIVE METABOLIC PANEL (CMP) Routine 05/31/2005 10:05 EST documented in this encounter Results * THYROID CASCADE (05/31/2005 10:05 EST) TSH 1.27 0.35 - 5.50 uIU/ml [facility] Comment: TSH cascade is not recommended for patients in which pituitary or hypothalamic disorders are suspected. 05/31/2005 10:0 5 EST 06/01/2005 8:56 EST Maria Fernanda Red MD CHEMISTRY & BLOOD GA S ORDERABLES Performing Organization Address [facility] Phone Number [facility] [address] [place] [address] * (ABNORMAL) TESTOSTERONE (05/31/2005 10:05 EST) Testosterone, Total 107(H) 14 - 76 ng/dl [facility] 05/31/2005 10:0 5 EST 06/01/2005 8:56 EST Maria Fernanda Red MD CHEMISTRY & BLOOD GA S ORDERABLES Performing Organization Address [facility] Phone Number [facility] [address] [place] [address] * LIPID PROFILE (INCLUDES CHOLESTEROL, TRIGLYCERIDES, HDL, LDL) (05/31/2005 10:05 EST) Pathologist [facility] Cholesterol 193 mg/dl [facility] Comment: Desirable:<200 Borderline:200-239 High Risk:>vd=397 Triglycerides 94 35 - 160 mg/dl [facility] HDL 66 mg/dl [facility] Comment: Highly Desirable:>60 Desirable:35-60 High Risk:<35 LDL, Calculated 108 mg/dl [facility] Comment: Desirable:<130 Borderline:130-159 High Risk:>fy=499 Chol/HDL Ratio 2.9 [facility] Fasting? Yes [facility] 05/31/2005 10:0 5 EST 06/01/2005 8:56 EST Maria Fernanda Red MD CHEMISTRY & BLOOD GA S ORDERABLES Performing Organization Address [facility] Phone Number [facility] [address] [place] [address] * C-REACTIVE PROTEIN (05/31/2005 10:05 EST) C-Reactive Protein <0.7 <1.0 mg/dl [facility] 05/31/2005 10:0 5 EST 06/01/2005 8:56 EST Maria Fernanda Red MD CHEMISTRY & BLOOD GA S ORDERABLES Performing Organization Address [facility] Phone Number [facility] [address] [place] [address] * COMPREHENSIVE METABOLIC PANEL (05/31/2005 10:05 EST) Potassium 4.1 3.5 - 5.0 mEq/L [facility] Sodium 143 136 - 145 mEq/L [facility] Chloride 104 96 - 110 mEq/L [facility] CO2 30 24 - 32 mEq/L [facility] Total Alkaline Phosphatase 88 38 - 126 U/L [facility] Bilirubin, Total 0.5 0.2 - 1.3 mg/dl [facility] AST 32 15 - 46 U/L [facility] ALT 35 9 - 52 U/L [facility] Albumin 4.2 3.4 - 4.9 g/dl [facility] Total Protein 7.5 6.5 - 8.3 g/dl [facility] Creatinine 0.9 0.7 - 1.5 mg/dl [facility] BUN 18 10 - 26 mg/dl [facility] Calcium 9.3 8.5 - 10.5 mg/dl [facility] Calculated Calcium 9.5 8.5 - 10.5 mg/dl [facility] Glucose, Serum 88 70 - 110 mg/dl [facility] Fasting? Yes [facility] Albumin/Globulin Ratio 1.3 [facility] 05/31/2005 10:0 5 EST 06/01/2005 8:56 EST Maria Fernanda Red MD CHEMISTRY & BLOOD GA S ORDERABLES [facility] [address] [place] [address] * HEMAGRAM (05/31/2005 10:05 EST) WBC 4.89 4.0 - 12.4 K/cmm [facility] RBC 4.47 3.86 - 5.04 M/cmm [facility] Hemoglobin 14.7 11.6 - 15.2 gm/dl [facility] HCT 42.5 34.9 - 44.4 % [facility] MCV 95 81 - 98 fl [facility] MCH 32.9 26.7 - 33.3 pg [facility] MCHC 34.6 32.1 - 35.9 gm/dl [facility] PLT 265 141 - 320 K/cmm [facility] RDW-CV 12.0 11.7 - 14.6 % [facility] 05/31/2005 10:0 5 EST 06/01/2005 8:56 EST Maria Fernanda Red MD HEMATOLOGY & PF4 ORD ERABLES Performing Organization Address [facility] Phone Number [facility] [address] [place] [address] * (ABNORMAL) JODY TITER (05/31/2005 10:05 EST) JODY Titer 640(H) 0 - 40 dils [facility] Comment: Diffuse and speckled JODY patterns. Result is equal to or greater than 640 dils. 05/31/2005 10:0 5 EST 06/01/2005 8:56 EST Maria Fernanda eRd MD IMMUNOLOGY AND SEROL OGY ORDERABLES Performing Organization Address [facility] de Phone Number [facility] [address] [place] [address] * ANTI NUCLEAR ANTIBODY (05/31/2005 10:05 EST) Anti Nuclear Ab Positive at 40 dils, titer to follow. 0 - 40 Dils [facility] 05/31/2005 10:0 5 EST 06/01/2005 8:56 EST Maria Fernanda Red MD IMMUNOLOGY AND SEROL OGY ORDERABLES Performing Organization Address [facility]/ZIP Co de Phone Number [facility] [address] [place] [address] documented in this encounter Visit Diagnoses Not on filedocumented in this encounter
--- OUTSIDE RECORDS SUMMARY | 2024-03-20 15:16 | XMS_ITS | Encounter Summary ---
Author Organization [facility] Address [address] [place] [address] Care Team Providers Care Fashion Patternmaker Name Role Phone None, Provider Primary Care Provider Maria Fernanda Bender MD Primary Care Provider Unavailab kovacs Encounter Details Date Type Department Care Team (Late st Contact Info) Description 08/09/2005 Results Only [facility] - Maple conversion [address] [place] [address] Jadyn Astorga [facility] STAFF MAIL [address] [place] [address] Social History Tobacco Use Types Packs/Day Years [...] Appointment [facility] Interventional Radiology Unit [address] [place], [place] 962051 04/02/2024 15:15 EDT Office Visit [facility] Surgical Oncology - [address] [phone] Adolfo Carreno MD 111 [facility], Level 2 [place] [phone] 04/05/2024 9:30 EDT Telemedicine [facility] Palliative Care Services [address] [place] [address] [phone] Chichi Woods MD [address] [place] [phone] 04/11/2024 15:00 EDT Telemedicine [facility] Hematology & Oncology - [address] [phone] Alisson Carreon MD [address] [place] [address], Level 2 [place] [phone] 04/13/2024 13:30 EDT Appointment [facility] Hematology & Oncology [address] [phone] 04/13/2024 14:00 EDT Appointment [facility] Hematology & Oncology [address] [phone] 04/16/2024 10:00 EST Telemedicine [facility] Palliative Care Services [address] [place] [address] [phone] Chichi Woods MD [address] [place] [address] [phone] 04/24/2024 9:00 EST Appointment [facility] Radiology CT Outpatient - [address] [phone] 04/24/2024 11:00 EST Appointment [facility] Breast Imaging - [address] [phone] 04/27/2024 12:00 EST Appointment [facility] Hematology & Oncology - [address] [phone] 05/02/2024 15:00 EST Telemedicine [facility] Hematology & Oncology - [address] [address] Alisson Carreon MD 111 [facility], Level 2 [place] [phone] 05/04/2024 10:15 EST Ancillary Procedure [facility] Cardiology - [address] [place] [address] 05/04/2024 11:30 EST Appointment [facility] Hematology & Oncology [address] [phone] 05/04/2024 12:00 EST Appointment [facility] Hematology & Oncology [address] [phone] 06/12/2024 13:00 EST Appointment [facility] Radiology CT - [address] [phone] documented as of this encounter Procedures Procedure Name Priority Date/Time Associated Diagnosis Comments SURGICAL PATHOLOGY Routine 08/09/2005 0:00 EST documented in this encounter Results * SURGICAL PATHOLOGY (08/09/2005 0:00 EST) Pathology Report: SURGICAL PATHOLOGY REPORT Reports generated via electronic interface contain original data; however they are lacking the format of the original report. Caution should be taken when reading/interpreti ng unformatted reports. Name: ? SUNSHINE SMITH ? Accession #: ? [id number] ? : ? 1960 (Age: 45) ??F ? Collect Date: ? 08/09/2005 ? Location: ? [facility] ? Receive Date: ? 08/09/2005 ? Provider: JADYN ASTORGA MD Copy to: FELIPE PALACIOS MD ? Final Pathologic Diagnosis: ? Endocervix, curettage: 1. ?Abundant mucus and rare endocervical cells with degenerative features. 2. ?Fragments of benign ectocervical tissue. Document reviewed and electronically signed by: Shahzad Yarbrough MD Report ??Date: 08/11/2005 16:51 By the signature above, the attending physician certifies that he/she has personally conducted a gross and/or microscopic examination of the described specimens and rendered or confirmed the above diagnosis. Specimen(s) Received: ? ECC Clinical History: ? ASCUS ??HR HPV, VAIN II, ECC scant, repeat ECC today; LMP: 4 yrs ago; clinical diagnosis code: ??ASCUS PAP HPV (+), 795.01 Gross Description: ? Received in formalin labelled [place] and ECC is white to hanks focally hyperemic soft mucinous material which measures roughly 1.0 cc in total volume. ??Entirely submitted in one cassette. ??(Rebecca Lopez)/[facility] End of Report [facility] 08/09/2005 08/09/2005 8:4 3 EST Jadyn Astorga PATHOLOGY ORDERABLES [facility] [address] [place] [address] documented in this encounter Visit Diagnoses Not on filedocumented in this encounter Care Teams Fashion Patternmaker Relationship Specialty Start Date End Date None, Provider PCP - General 08/21/09 01/05/11 Maria Fernanda Red MD PCP - General 12/17/08 08/20/09 documented as of this encounter
--- OUTSIDE RECORDS SUMMARY | 2024-03-20 15:16 | XMS_ITS | Encounter Summary ---
Author Organization [facility] Address [address] [place] [address] Care Team Providers Care Senior Bioinformatics Scientist Name Role Phone Unavailable Primary Care Provider Unavailabl e Encounter Details Date Type Department Care Team (Latest Contact Info) Description 07/27/2005 13:59 EST Hospital Encounter [address] [address] Alex Stapleton MD [address] [place] [address] [address] [place] [phone] Farnaz Dumont FNP Discharge Disposition: Auto Discharge [...] [facility] Interventional Radiology Unit [address] [place] [address] [phone] 04/02/2024 15:15 EDT Office Visit [facility] Surgical Oncology - [address] [phone] Adolfo Carreno MD 111 [facility] [address] [place] [phone] 04/05/2024 9:30 EDT Telemedicine [facility] Palliative Care Services [address] [place] [address] [phone] Chichi Woods MD [address] [place] [address] [phone] 04/11/2024 15:00 EDT Telemedicine [facility] Hematology & Oncology - [address] [phone] Alisson Carreon MD [address] [place] [address] Level [address] [place] [phone] 04/13/2024 13:30 EDT Appointment [facility] Hematology & Oncology - [address] [phone] 04/13/2024 14:00 EDT Appointment [facility] Hematology & Oncology - [address] 186871 04/16/2024 10:00 EST Telemedicine [facility] Palliative Care Services [address] [place] [address] [phone] Chichi Woods MD [address] [place] [address] [phone] 04/24/2024 9:00 EST Appointment [facility] Radiology CT Outpatient - [address] [id number] 04/24/2024 11:00 EST Appointment [facility] Breast Imaging - [address] [address] 04/27/2024 12:00 EST Appointment [facility] Hematology & Oncology - [address] [address] 05/02/2024 15:00 EST Telemedicine [facility] Hematology & Oncology - [address] [address] Alisson Carreon MD [address] [place] [address], [facility], Level [address] [place] [phone] 05/04/2024 10:15 EST Ancillary Procedure [facility] Cardiology - [address] [place] [address] 05/04/2024 11:30 EST Appointment [facility] Hematology & Oncology [address] [address] 05/04/2024 12:00 EST Appointment [facility] Hematology & Oncology [address] 346231 06/12/2024 13:00 EST Appointment [facility] Radiology CT - [address] 238281 documented as of this encounter Procedures Procedure Name Priority Date/Time Associated Diagnosis Comments CHEST PA 07/27/2005 16:00 EST documented in this encounter Results * CHEST PA (07/27/2005 16:00 EST) Anatomical Region Laterality Modality Other 07/27/2005 16:0 0 EST Narrative 01/10/2009 4:59 EDT INTERMITTENT HAND TINGLING LEFT GREATER RIGHT - EVALUATE FOR CERVICAL RIB CHEST X-RAY, 07/27/05, 1550 HISTORY: Intermittent hand tingling, left greater than right. ??Evaluate for cervical rib. FINDINGS: No comparison. Upright PA view of the chest demonstrates normal bones, without evidence of a cervical rib. ??The soft tissues, cardiomediastinal silhouette, mariann and diaphragms are normal. ??The lungs are clear. IMPRESSION: Normal chest x-ray. D: ??07/27/05 T: ??07/28/05 /[facility] Procedure Note Shady Fallon MD - 01/10/2009 INTERMITTENT HAND TINGLING LEFT GREATER RIGHT - EVALUATE FOR CERVICAL RIB CHEST X-RAY, 07/27/05, 1550 HISTORY: Intermittent hand tingling, left greater than right. Evaluate for cervical rib. FINDINGS: No comparison. Upright PA view of the chest demonstrates normal bones, without evidence of a cervical rib. The soft tissues, cardiomediastinal silhouette, mariann and diaphragms are normal. The lungs are clear. IMPRESSION: Normal chest x-ray. /[facility] Alex Stapleton MD IMG DIAGNOSTIC IMAG ING ORDERABLES documented in this encounter Visit Diagnoses Not on filedocumented in this encounter
--- OUTSIDE RECORDS SUMMARY | 2024-03-20 15:16 | XMS_ITS | Encounter Summary ---
Author Organization [facility] Address [address] [place] [address] Care Team Providers Care Forging Dies Final Finisher Name Role Phone Unavailable Primary Care Provider Unavailabl e Encounter Details Date Type Department Care Team (Late st Contact Info) Description 07/21/2004 19:25 [facility] Hospital Encounter [facility] - Other [address] [place] [address] Catherine Riley MD [address] [place], [place] [phone] Social History Tobacco Use Types Packs/Day Years Used Date Smoking Tobacco: Never Passive Smoke Exposure: Never Smokeless Tobacco: Never Alcohol Use Standard Drinks/Week Comments Not Currently 1 (1 standard drink = 0.6 oz pur e alcohol) [facility] Utilities Answer Date Recorded In the past 12 months has [facility] [employer], gas, oil, or water [employer] threatened to shut off services in [...] living in a mcfp (including now)? No 01/10/2024 Interpersonal Safety Answer [...] EDT Appointment [facility] Interventional Radiology Unit [address] [place] [address] 04/02/2024 15:15 EDT Office Visit [facility] Surgical Oncology - [facility] [address] [place] [phone] Adolfo Carreno MD 111 [facility], Level 2 [place] [phone] 04/05/2024 9:[address] [facility] Palliative Care Services [address] [place] [address] Chichi Woods MD 111 [facility], [address] [phone] 04/11/2024 15:00 EDT Telemedicine [facility] Hematology & Oncology - [address] [phone] Alisson Carreon MD [address] [place] [address], [facility] [address] [place] [phone] 04/13/2024 13:30 EDT Appointment [facility] Hematology & Oncology [address] [phone] 04/13/2024 14:00 EDT Appointment [facility] Hematology & Oncology [address] [phone] 04/16/2024 10:[address] [facility] - [facility] Palliative Care Services [address] [place] [address] [phone] Chichi Woods MD [address] [place] [address], [address] [phone] 04/24/2024 9:00 EST Appointment [facility] Radiology CT Outpatient - [address] [id number] 04/24/2024 11:00 EST Appointment [facility] Breast Imaging - [address] [phone] 04/27/2024 12:00 EST Appointment [facility] Hematology & Oncology - [address] [phone] 05/02/2024 15:00 EST Telemedicine [facility] Hematology & Oncology - [address] [phone] Alisson Carreon MD [address] [place] [address], [facility] [address] [place] [phone] 05/04/2024 10:15 EST Ancillary Procedure [facility] Cardiology - [address] [place] [address] 05/04/2024 11:30 EST Appointment [facility] Hematology & Oncology [address] [address] 05/04/2024 12:00 EST Appointment [facility] Hematology & Oncology [address] [address] 06/12/2024 13:00 EST Appointment [facility] Radiology CT [address] 141101 documented as of this encounter Visit Diagnoses Not on filedocumented in this encounter Additional Health Concerns Infection Onset Date Last Indicated Resolved Time R/O COVID-19 12/12/2023 12/12/2023 12/12/2023 15:3 5 EDT R/O COVID-19 01/08/2024 01/08/2024 01/08/2024 18:2 6 EDT R/O COVID-19 01/16/2024 01/16/2024 01/16/2024 17:5 0 EDT documented as of this encounter
--- OUTSIDE RECORDS SUMMARY | 2024-03-20 15:16 | XMS_ITS | Encounter Summary ---
Author Organization [facility] Address [address] [place] [address] Care Team Providers Care Group Practice Pediatrician Name Role Phone Maria Fernanda Red MD Primary Care Provider Unavailab le Encounter Details Date Type Department Care Team (Late st Contact Info) Description 06/30/2005 Before PRISM Converted Visit (Maple) [facility] - Maple conversion [address] [place] [address] Alex Stapleton MD [address] [place] [address] [address] [place] [phone] Social History Tobacco Use Types Packs/Day Years Used Date Smoking Tobacco: Never Assessed Sex and Gender Information Value Date Recorded Sex Assigned at Female 05/17/2019 15:31 EST Gender Identity Female 04/26/2019 13:08 EST Sexual Orientation Bisexual 08/26/2022 10 :47 EDT documented as of this encounter Consult Notes * Alex Stapleton MD - 08/12/20092044 EST MOVEMENT, INHERITED, AND NEURODEGENERATIVE DISORDERS CLINIC June 30, 2005 Maria Fernanda Red M.D. [facility] [address] [place] [address] Red: Thank you very much for referring Ms. Holley for neurological consultation. As you know, she is [id number] right-handed woman who presents with a several year history of intermittent hand paresthesias. They initially began back in early 2003 and occurred quite rarely at less than once or twiceper week. They occur most consistently upon awakening in the morning and consist of a leathery reduction in sensation without associated paresthesias, isolated to the 3rd, 4th, or 5thdigits on the left. This has continued to occur intermittently, but increased in frequency and as well began happening in the right hand over a similar distribution. She has no associated weakness. Her symptoms last an estimated several minutes and are relieved with lowering the hand and with a flicking motion. Shehas no associated changes in coloration. She complains of no pain in the wrist, elbow, or shoulder.She denies any history of neck pain or neck injury. She can exacerbate symptoms with elevation of the hands above the head with flexion of the elbows, such as when washing her hair in the shower. Thesymptoms are relieved near immediately with lowering of the arms. She has a rare similar sensation in the distal aspects of the feet when she dances for long periodsof time. Again there are no associated paresthesias or burning sensations in the feet. She denies any trouble with weakness in the arms or legs. She has undergone an EMG and nerve conduction study of the left arm, revealing no evidence of an upper extremity mononeuropathy or radiculopathy, and this was done in September of 2003. She has a history of subjective abnormal sensations, which are relieved with movement in the legs, which occur at rest and are more prominent nocturnally. These are fully relieved by rubbing of the legs and leg movement. She has never been given a diagnosis of restless leg syndrome. There is no family history of the same. These movements and sensations do not limit her ability to initiate sleep. She denies problems with thinking or memory. She has had no recent headaches. She does have a history of coital headaches, but these were greater than a year ago and have not returned. She was evaluated with an MRI of the brain with and without contrast, as well as an MR angiogram of the [place] of [place], which were unremarkable. She has a mild severity headache, which responds well to fgxh-zhw-puedzov analgesics. She denies trouble with balance or coordination. PAST MEDICAL HISTORY: Notable for ductal carcinoma of the breast with right mastectomy in 2003. Thelymph nodes were negative, and she received no chemotherapy or radiation. She had an early onset ofmenopause at age 38 (in 2001) with associated difficulty with hot flashes. She has not been treatedwith hormone replacement due to her history of breast cancer. CURRENT MEDICATIONS: 1. Clonidine 0.2 mg twice daily. 2. Effexor 75 mg once daily. 3. AndroGel. 4. Vagifem. 5. Black cohosh. 6. Cava cava. 7. Evening primrose. ALLERGIES/INTOLERANCES: SULFA MEDICATIONS. Social history, family history, and a general review of systems are documented in the Patient Intake Questionnaire. There is no family history of neurological illness, other than a stroke in her maternal grandmother. There is a history of depression in hermother, with no other psychiatric history. She has one brother with hepatitis C. PHYSICAL EXAMINATION: Blood pressure is 116/68 with a heart rate of 68. Respirations are 16 and unlabored. She is alert, appropriate, and oriented with fluent speech and intact language. Neck is supple with normal range of movement. Eyes are without icterus or injection. Oropharynx is unremarkable.Radial pulses are symmetrically present and remain so with arm elevation. There is no change in thecoloration of the limbs with elevated arms. Tinel's and Phalen's signs are absent, and there is no tenderness at the wrists or elbow. Fundi are unremarkable, pupils are equal and reactive to light, visual perez are full, and extraocular movements are full and without nystagmus with normal eye movem ents. Facial sensation and strength are normal. Hearing is intact to finger rub at greater than twofeet. Tongue, palate, sternocleidomastoid, and shoulder shrug strength are all normal. Motor exam reveals 5/5 strength with normal and symmetric bulk and tone throughout. There is no evidence of atrophy. There are low amplitude choreiform movements of the hands/digits greater than feetwith no movements of the head and neck. These are augmented with limb movements and posturing with arms extended. Reflexes are 2 and symmetric throughout with flexor plantar responses. No drift is present. Sensation is intact to crude, cold, and vibration throughout. Unccfv-fa-ozgf and qrhq-ov-igodmxduoz no ataxia. Stance and gait are normal. Romberg sign is absent. MRI of the brain is reviewed and is normal. In summary, Ms. Holley presents with intermittent hand paresthesias in the medial aspects of the hands. I would be suspicious that this could represent cubital tunnel syndrome or cervical radiculopathy, but these have been probably eliminated by her normal EMG and nerve conduction studies of the left upper extremity. Given the positional nature of it, one would consider thoracic outlet syndrome. It would be reasonable to evaluate her with a plain film of the chest to exclude a cervical rib. If this is present, we may consider a vascular evaluation of the arm as well. I would also like to exclude some type of cervical cord lesion, and this can be done with an MRI without contrast. Incidentally, she has a history consistent with restless leg syndrome. This may be secondary to herEffexor. We will check her ferritin levels to make sure that these are not low. This is not symptomatic enough to require any therapy. 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 This might be drug-induced secondary to her Effexor or possibly related to her herbal preparations. My review of these herbs actually look like several of them may be associated with areduction in chorea, so I am not sure how this may relate. I have suggested we send screening laboratories for chorea and follow this conservatively at this time. Given her high JODY, antiphospholipid antibodies were sent, because they are associated with the development of chorea. I will see her back after the aforementioned diagnostics for a re-evaluation. Thank you very much for involving me in this delightful woman's care. Sincerely, Signed by Alex Stapleton MD 07/01/2005 12:00 Benjamín Viveros MD Alex Stapleton MD - Alex Stapleton MD P - LBR Job ID: [id number] Document ID: [id number] cc: Maria Fernanda Red MD documented in this encounter Plan of Treatment Upcoming Encounters Date Type Department Care Team (Late st Contact Info) Description 04/02/2024 10:30 EDT Appointment [facility] Interventional Radiology Unit [address] [place] [address] 04/02/2024 15:15 EDT Office Visit [facility] Surgical Oncology - [address] [phone] Adolfo Carreno MD [address] [place] [address] [phone] 04/05/2024 9:30 EDT Telemedicine [facility] Palliative Care Services [address] [place] [address] [phone] Chichi Woods MD [address] [place] [address] [phone] 04/11/2024 15:00 EDT Telemedicine [facility] Hematology & Oncology - [address] [phone] Alisson Carreon MD [address] [place] [address] [phone] 04/13/2024 13:30 EDT Appointment [facility] Hematology & Oncology [address] [phone] 04/13/2024 14:00 EDT Appointment [facility] Hematology & Oncology [address] [address] 04/16/2024 10:00 EST Telemedicine [facility] Palliative Care Services [address] [place] [address] [phone] Chichi Woods MD [address] [place] [address] [phone] 04/24/2024 9:00 EST Appointment [facility] Radiology CT Outpatient - [address] [phone] 04/24/2024 11:00 EST Appointment [facility] Breast Imaging - [facility] [address] [place] [address] 04/27/2024 12:00 EST Appointment [facility] Hematology & Oncology - [address] [address] 05/02/2024 15:00 EST Telemedicine [facility] Hematology & Oncology [address] [phone] Alisson Carroen MD [address] [place] [address], Level [address] [place] [phone] 05/04/2024 10:15 EST Ancillary Procedure [facility] Cardiology - [place] [address] 05/04/2024 11:30 EST Appointment [facility] Hematology & Oncology [address] [address] 05/04/2024 12:00 EST Appointment [facility] Hematology & Oncology [address] [phone] 06/12/2024 13:00 EST Appointment [facility] Radiology CT - [address] [phone] documented as of this encounter Visit Diagnoses Not on filedocumented in this encounter Care Teams Group Practice Pediatrician Relationship Specialty Start Date End Date Maria Fernanda Red MD PCP - General 12/17/08 08/20/09 documented as of this encounter
--- OUTSIDE RECORDS SUMMARY | 2024-03-20 15:16 | XMS_ITS | Encounter Summary ---
Author Organization [facility] Address [address] [place] [address] Care Team Providers Care Report Specialist Name Role Phone None, Provider Primary Care Provider Maria Fernanda Bender MD Primary Care Provider Unavailab kovacs Encounter Details Date Type Department Care Team (Late st Contact Info) Description 06/30/2005 Results Only [facility] OBGYN Services - [address] [phone] Quita Babb PA-C [address] [place] [phone] Social History Tobacco Use Types Packs/Day [...] [facility] Interventional Radiology Unit [address] [place] [address] [phone] 04/02/2024 15:15 EDT Office Visit [facility] Surgical Oncology - [address] [phone] Adolfo Carreno MD [address] [place] [address] [phone] 04/05/2024 9:30 EDT Telemedicine [facility] Palliative Care Services [address] [place] [address] [phone] Chichi Woods MD [address] [place] [address] [phone] 04/11/2024 15:[address] [facility] Hematology & Oncology - [address] [address] Alisson Carreon MD [address] [place] [address], Level [address] [place] [phone] 04/13/2024 13:[address] [facility] Hematology & Oncology - [address] [address] 04/13/2024 14:[address] [facility] Hematology & Oncology - [address] [phone] 04/16/2024 10:00 EST Telemedicine [facility] Palliative Care Services [address] [place] [address] [phone] Chichi Woods MD [address] [place] [phone] 04/24/2024 9:00 EST Appointment [facility] Radiology CT Outpatient - [address] [phone] 04/24/2024 11:00 EST Appointment [facility] Breast Imaging - [address] [address] 04/27/2024 12:[address] [facility] Hematology & Oncology - [address] [address] 05/02/2024 15:[address] [facility] Hematology & Oncology - [address] [address] Alisson Carreon MD [address] [place] [address], [facility], Level [address] [place] [phone] 05/04/2024 10:15 EST Ancillary Procedure [facility] Cardiology - [address] [place] [address] 05/04/2024 11:[address] [facility] Hematology & Oncology - [address] [address] 05/04/2024 12:[address] [facility] Hematology & Oncology - [address] [address] 06/12/2024 13:00 EST Appointment [facility] Radiology CT - [address] [phone] documented as of this encounter Procedures Procedure Name Priority Date/Time Associated Diagnosis Comments N. GONORRHOEAE AMPLIFIED PROBE Routine 06/30/2005 19:59 EST ZZCHLAMYDIA TRACHOMATIS AMPLIFIED PROBE Routine 06/30/2005 19:59 EST PROFILE ANTIPHOSPHOLIPID SYNDROME Routine 06/30/2005 17:01 EST COPPER, SERUM Routine 06/30/2005 17:01 EST CERULOPLASMIN, S Routine 06/30/2005 17:0 1 EST ANTISTREP O TITER, S Routine 06/30/2005 17:01 EST TSH Routine 06/30/2005 17:01 EST FERRITIN Routine 06/30/2005 17:01 EST COMPREHENSIVE METABOLIC PANEL (CMP) Routine 06/30/2005 17:01 EST HIV 1/2 ANTIGEN AND ANTIBODY, 4TH GENERATION Routine 06/30/2005 17:00 EST HPV DETECTION, HIGH RISK TYPES Routine 06/30/2005 9:21 EST CYTOPATHOLOGY Routine 06/30/2005 0:00 EST documented in this encounter Results * N. GONORRHOEAE AMPLIFIED PROBE (06/30/2005 19:59 EST) Result No Neisseria gonorrhoeae DNA detected by recycling operator mediated amplification. [facility] Report Status Final [id number] [facility] Specimen Description Cervix [facility] 06/30/2005 19:5 9 EST 06/30/2005 19:59 EST Quita Babb PA-C MICROBIOLOGY - GENERAL ORDERABLES Performing Organization Address [facility] Co de Phone Number [facility] [address] [place] [address] * CHLAMYDIA TRACHOMATIS AMPLIFIED PROBE (06/30/2005 19:59 EST) Specimen Description Cervix [facility] Result No Chlamydia trachomatis DNA detected by recycling operator mediated amplification. [facility] Report Status Final [id number] [facility] 06/30/2005 19:5 9 EST 06/30/2005 19:59 EST Quita Babb PA-C MICROBIOLOGY - GENERAL ORDERABLES Performing Organization Address City/[facility] Co de Phone Number [facility] [address] [place] [address] * TSH (06/30/2005 17:01 EST) TSH 1.02 0.35 - 5.50 uIU/ml [facility] 06/30/2005 17:0 1 EST 06/30/2005 17:21 EST Alex Stapleton MD CHEMISTRY & BLOOD G ORDERABLES Performing Organization Address [facility] de Phone Number [facility] [address] [place] [address] * FERRITIN (06/30/2005 17:01 EST) [facility] Ferritin 31 8 - 151 ng/ml [facility] 06/30/2005 17:0 1 EST 06/30/2005 17:21 EST Alex Stapleton MD CHEMISTRY & BLOOD G ORDERABLES Performing Organization Address [facility] de Phone Number [facility] [address] [place] [address] * (ABNORMAL) COPPER, SERUM (06/30/2005 17:01 EST) [facility] Copper, Serum 1.64Unit: ug/mL(Note) -- EXPECTED VALUES -- ? (Ref Range) 0.75 to 1.45 ? Test Performed by: ? [facility] Dpt of Lab Med and Pathology ? [address] [id number] ? [employer] Developer: Lewis Au M.D. ?(H) [facility] 06/30/2005 17:0 1 EST 06/30/2005 17:21 EST Alex Stapleton MD CHEMISTRY & BLOOD G ORDERABLES Performing Organization Address City/State/[facility] Co de Phone Number [facility] [address] [place] [address] * COMPREHENSIVE METABOLIC PANEL (06/30/2005 17:01 EST) Potassium 4.2 3.5 - 5.0 mEq/L [facility] Sodium 139 136 - 145 mEq/L [facility] Chloride 103 96 - 110 mEq/L [facility] CO2 26 24 - 32 mEq/L [facility] Total Alkaline Phosphatase 111 38 - 126 U/L [facility] Bilirubin, Total <0.5 0.2 - 1.3 mg/dl [facility] AST 34 15 - 46 U/L [facility] ALT 46 9 - 52 U/L [facility] Albumin 4.5 3.4 - 4.9 g/dl [facility] Total Protein 8.0 6.5 - 8.3 g/dl [facility] Creatinine 0.9 0.7 - 1.5 mg/dl [facility] BUN 21 10 - 26 mg/dl [facility] Calcium 9.7 8.5 - 10.5 mg/dl [facility] Calculated Calcium 9.6 8.5 - 10.5 mg/dl [facility] Glucose, Serum 84 70 - 110 mg/dl [facility] Fasting? No [facility] Albumin/Globulin Ratio 1.3 [facility] 06/30/2005 17:0 1 EST 06/30/2005 17:21 EST Alex Stapleton MD CHEMISTRY & BLOOD G ORDERABLES [facility] [address] [place] [address] * (ABNORMAL) CERULOPLASMIN (06/30/2005 17:01 EST) Cerulplasmin 52.0Unit: mg/dL(Note) -- EXPECTED VALUES -- ? (Ref Range) 22.9 to 43.1 ? Test Performed by: ? [facility] Dpt of Lab Med and Pathology ? [address] , [place] [address] ? [employer] Developer: eLwis Au M.D. ?(H) [facility] 06/30/2005 17:0 1 EST 06/30/2005 17:21 EST Alex Stapleton MD CHEMISTRY & BLOOD G ORDERABLES Performing Organization Address City/State/[facility] Co de Phone Number [facility] [address] [place] [address] * PROFILE ANTIPHOSPHOLIPID SYNDROME (06/30/2005 17:01 EST) IgM Cardiolipin Ab <4.0Unit: MPL(Note) Interpretatio n: Negative (<10.0 MPL) ? Please note change in reference values effective 01/19/2005. ? [facility] IgG Cardiolipin Ab <4.0Unit: GPL(Note) Interpretatio n: Negative (<10.0 GPL) ? Please note change in reference values effective 01/19/2005. ? Test Performed by: ? [facility] Dpt of Lab Med and Pathology ? [address] [facility], [place] [address] ? [employer] Developer: Lewis Au M.D. ? [facility] Dilute Viper Venom 32.6 25.8 - 39.1 secs [facility] Comment: Results must be interpreted with caution if the patient is on oral anticoagulant, direct thrombin inhibitors or heparin. PTT 28 20 - 35 secs [facility] Comment:Therapeutic Heparin range: 70-105 seconds Patient PTT50 28 20 - 35 secs [facility] CTRL 50/50 PTT Test cancelled, normal APTT secs [facility] Mix 50/50 PTT Test cancelled, normal APTT secs [facility] 06/30/2005 17:0 1 EST 06/30/2005 17:21 EST Alex Stapleton MD PACKAGES & DNA PROB E ORDERABLES Performing Organization Address [facility] Co de Phone Number [facility] [address] [place] [address] * ANTI STREPTOLYSIN O (06/30/2005 17:01 EST) Pathologist [facility] Anti Strep O Screen <100 <200 SAUL U [facility] 06/30/2005 17:0 1 EST 06/30/2005 17:21 EST Alex Stapleton MD IMMUNOLOGY AND SERO LOGY ORDERABLES Performing Organization Address [facility] de Phone Number [facility] [address] [place] [address] * HIV ANTIBODY (MANDEEP) (06/30/2005 17:00 EST) [facility] HIV 1/2 Antibody NONREACT. NR [facility] 06/30/2005 17:0 0 EST 06/30/2005 17:22 EST Quita Babb PA-C IMMUNOLOGY AND SEROLOGY ORDERABLES Performing Organization Address [facility] Co de Phone Number [facility] [address] [place] [address] * HUMAN PAPILLOMA VIRUS DNA TEST (06/30/2005 9:21 EST) Specimen Description Cervix, ThinPrep vial [facility] Result Positive for one or more of HPV types 16,18,31,33,35 ,39,45,51,52,5 6,58,59, or 68. These high/intermedi ate risk HPV types are associated with dysplasia and some cervical cancers. [facility] Report Status Final [id number] [facility] 06/30/2005 9:21 EST 07/07/2005 9:21 EST Quita Babb PA-C MICROBIOLOGY - GENERAL ORDERABLES [facility] [address] [place] [address] * CYTOPATHOLOGY (06/30/2005 0:00 EST) Pathology Report: CYTOPATHOLOGY REPORT Reports generated via electronic interface contain original data; however they are lacking the format of the original report. Caution should be taken when reading/interpreti ng unformatted reports. Name: ? SUNSHINE SMITH ? Accession #: ? [id number] : ? 1960 (Age: 44) ??F ?Collect Date: ? 06/30/2005 Location: ? [facility] ? Receive Date: ? 07/01/2005 Provider: ?QUITA FU Copy to: ? Specimen/Source: ?ThinPrep Pap Test, Cervix/Endocervix, processed on [employer] ThinPrep Imaging System, with manual evaluation Last Menstrual Period: ? 4 years ago Other: ? HPVA - HPV testing requested if ASC-US on the current ThinPrep Pap test. ? SPECIMEN ADEQUACY ? Satisfactory for Evaluation - transformation zone component absent GENERAL CATEGORIZATION ? Epithelial Cell Abnormality INTERPRETATION ? Squamous Cell Abnormality - Atypical squamous cells, undetermined significance. EDUCATIONAL NOTES/RECOMMENDATI ONS ? [facility] recommends following the 2001 Consensus Guidelines for the Management of Women with Cervical Cytological Abnormalities (CY,2002;287:212 0-9). Management algorithms have been distributed by [facility] and are available online at www.ASCCP.org. ? Document reviewed and electronically signed by: ? CHER GRIFFITH MD ? Report Date: ??07/06/2005 13:37 End of Report [facility] 06/30/2005 07/01/2005 Quita Babb PA-C PATHOLOGY ORDE KARLA [facility] [address] [place] [address] documented in this encounter Visit Diagnoses Not on filedocumented in this encounter Care Teams Report Specialist Relationship Specialty Start Date End Date None, Provider PCP - General 08/21/09 01/05/11 Maria Fernanda Red MD PCP - General 12/17/08 08/20/09 documented as of this encounter
--- OUTSIDE RECORDS SUMMARY | 2024-03-20 15:16 | XMS_ITS | Encounter Summary ---
Author Organization [facility] Address [address] [place] [address] Care Team Providers Care Cash Sales Audit Clerk Name Role Phone None, Provider Primary Care Provider Maria Fernanda Bender MD Primary Care Provider Unavailab kovacs Encounter Details Date Type Department Care Team (Late st Contact Info) Description 07/27/2005 Results Only [facility] OBGYN Services - [address] [address] Mitzi Boateng FNP Social History Tobacco Use [...] Appointment [facility] Interventional Radiology Unit [address] [place] [address] [phone] 04/02/2024 15:15 EDT Office Visit [facility] Surgical Oncology - [address] [phone] Adolfo Carreno MD 111 [facility], Level 2 [place] [phone] 04/05/2024 9:30 EDT Telemedicine [facility] Palliative Care Services [address] [place] [address] [phone] Chichi Woods MD [address] [place] [address] [phone] 04/11/2024 15:00 EDT Telemedicine [facility] Hematology & Oncology [address] [phone] Alisson Carreon MD [address] [place] [address] Level 2 [place] [phone] 04/13/2024 13:30 EDT Appointment [facility] Hematology & Oncology [address] [phone] 04/13/2024 14:00 EDT Appointment [facility] Hematology & Oncology [address] [phone] 04/16/2024 10:00 EST Telemedicine [facility] - [facility] Palliative Care Services [address] [place] [address] [phone] Chichi Woods MD [address] [place] [address] [phone] 04/24/2024 9:00 EST Appointment [facility] Radiology CT Outpatient - [address] [phone] 04/24/2024 11:00 EST Appointment [facility] Breast Imaging - [address] [phone] 04/27/2024 12:00 EST Appointment [facility] Hematology & Oncology - [address] [phone] 05/02/2024 15:00 EST Telemedicine [facility] Hematology & Oncology - [address] [address] Alisson Carreon MD 111 [facility], [facility], Level 2 [place] [phone] 05/04/2024 10:15 EST Ancillary Procedure [facility] Cardiology - [place] [address] [place] [address] 05/04/2024 11:30 EST Appointment [facility] Hematology & Oncology - [facility] [address] [place], [place] 635171 05/04/2024 12:00 EST Appointment [facility] Hematology & Oncology [address] [phone] 06/12/2024 13:00 EST Appointment [facility] Radiology CT - [facility] [address] [place], [place] [phone] documented as of this encounter Procedures Procedure Name Priority Date/Time Associated Diagnosis Comments SURGICAL PATHOLOGY Routine 07/27/2005 0:00 EST documented in this encounter Results * SURGICAL PATHOLOGY (07/27/2005 0:00 EST) Pathology Report: SURGICAL PATHOLOGY REPORT Reports generated via electronic interface contain original data; however they are lacking the format of the original report. Caution should be taken when reading/interpreting unformatted reports. Name: ? SMITH PARDEEP Myles ? Accession #: ? [id number] ? : ? 1960 (Age: 44) ??F ? Collect Date: ? 07/27/2005 ? Location: ? [facility] ? Receive Date: ? 07/28/2005 ? Provider: MITZI BOATENG [facility] Copy to: ? Final Pathologic Diagnosis: A. ?Vagina, posterior wall, biopsy: 1. 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 ??See comment. B. ?Endocervix, curettage: 1. ?Minute fragments of benign squamous tissue. ??See comment. Comment: ? Specimen (B) is extremely scant and does not show definitive endocervical tissue. This case was reviewed at intradepartmental consultation conference. (Dr. Yarbrough)/[facility] ?? Document reviewed and electronically signed by: Shahzad Yarbrough MD Report ??Date: 07/29/2005 16:55 By the signature above, the attending physician certifies that he/she has personally conducted a gross and/or microscopic examination of the described specimens and rendered or confirmed the above diagnosis. Specimen(s) Received: A. ?Vaginal wall biopsy ??posterior B. ?ECC Clinical History: ? ASCUS PAP with HR HPV colpo; A. Lugol' s negative; LMP: 1999; clinical diagnosis code: ??795.01 Gross Description: ? Received in formalin labelled [place] and posterior vaginal wall biopsy are two irregular portions of white-pink, glistening mucosa averaging 0.5 x 0.1 x 0.1 cm, submitted in toto as (A). Received in formalin labelled [place] and ECC is a less than 0.1 cm in greatest dimension aggregate of hemorrhagic mucus, submitted in toto as (B). (Elias Barrett)/[facility] End of Report [facility] CAL[facility] 07/27/2005 07/28/2005 8:2 7 EST Mitzi Boateng [facility] PATHOLOGY ORDERABLES RENÉE CALDERA [address] [place] [address] documented in this encounter Visit Diagnoses Not on filedocumented in this encounter Care Teams Cash Sales Audit Clerk Relationship Specialty Start Date End Date None, Provider PCP - General 08/21/09 01/05/11 Maria Fernanda Red MD PCP - General 12/17/08 08/20/09 documented as of this encounter
--- OUTSIDE RECORDS SUMMARY | 2024-03-20 15:16 | XMS_ITS | Encounter Summary ---
Author Organization [facility] Address [address] [place] [address] Care Team Providers Care Clay Machine Operator Name Role Phone Unavailable Primary Care Provider Unavailabl e Encounter Details Date Type Department Care Team (Latest Contact Info) Description 08/18/2005 16:09 EST Hospital Encounter [facility] [address] [place] [address] Alex Stapleton MD [address] [place] [address] 2 [place] [phone] Discharge Disposition: Auto Discharge Social History Tobacco [...] Appointment [facility] Interventional Radiology Unit [address] [place] [address] [phone] 04/02/2024 15:15 EDT Office Visit [facility] Surgical Oncology - [address] [phone] Adolfo Carreno MD 111 [facility] 2 [place] [phone] 04/05/2024 9:30 EDT Telemedicine [facility] Palliative Care Services [address] [place] [address] [phone] Chichi Woods MD [address] [place] [address] [phone] 04/11/2024 15:00 EDT Telemedicine [facility] Hematology & Oncology - [address] [address] Alisson Carreon MD [address] [place] [address], Level [address] [place] [phone] 04/13/2024 13:30 EDT Appointment [facility] Hematology & Oncology - [address] [address] 04/13/2024 14:00 EDT Appointment [facility] Hematology & Oncology [address] [address] 04/16/2024 10:00 EST Telemedicine [facility] Palliative Care Services [address] [place] [address] [phone] Chichi Woods MD [address] [place] [address] [phone] 04/24/2024 9:00 EST Appointment [facility] Radiology CT Outpatient - [address] [phone] 04/24/2024 11:00 EST Appointment [facility] Breast Imaging - [address] [phone] 04/27/2024 12:00 EST Appointment [facility] Hematology & Oncology - [address] [address] 05/02/2024 15:00 EST Telemedicine [facility] Hematology & Oncology [address] 106911 Alisson Carreon MD [address] [place] [address], Level [address] [place] [phone] 05/04/2024 10:15 EST Ancillary Procedure [facility] Cardiology - [address] [place] [address] 05/04/2024 11:30 EST Appointment [facility] Hematology & Oncology [address] [phone] 05/04/2024 12:00 EST Appointment [facility] Hematology & Oncology [address] 840211 06/12/2024 13:00 EST Appointment [facility] Radiology CT - [address] [phone] documented as of this encounter Visit Diagnoses Not on filedocumented in this encounter
--- OUTSIDE RECORDS SUMMARY | 2024-03-20 15:16 | XMS_ITS | Encounter Summary ---
Author Organization [facility] Address [address] [place] [address] Care Team Providers Care Steam Clean Machine Operator Name Role Phone Unavailable Primary Care Provider Unavailabl e Encounter Details Date Type Department Care Team (Latest Contact Info) Description 11/23/2005 16:08 EDT Hospital Encounter [address] [address] Damian Brooke ANP Discharge Disposition: Auto Discharge [...] Appointment [facility] Interventional Radiology Unit [address] [place] [address] 04/02/2024 15:15 EDT Office Visit [facility] Surgical Oncology - [address] [phone] Adolfo Carreno MD 111 [facility], Level 2 [place] [phone] 04/05/2024 9:30 EDT Telemedicine [facility] Palliative Care Services [address] [place] [address] [phone] Chichi Woods MD [address] [place] [address] [phone] 04/11/2024 15:00 EDT Telemedicine [facility] Hematology & Oncology [address] [address] Alisson Carreon MD [address] [place] [address], Level [address] [place] [phone] 04/13/2024 13:30 EDT Appointment [facility] Hematology & Oncology [address] [phone] 04/13/2024 14:00 EDT Appointment [facility] Hematology & Oncology [address] [address] 04/16/2024 10:00 EST Telemedicine [facility] - [facility] Palliative Care Services [address] [place] [address] [phone] Chichi Woods MD [address] [place] [address] [phone] 04/24/2024 9:00 EST Appointment [facility] Radiology CT Outpatient - [address] [phone] 04/24/2024 11:00 EST Appointment [facility] Breast Imaging - [address] 162351 04/27/2024 12:00 EST Appointment [facility] Hematology & Oncology - [address] 709161 05/02/2024 15:00 EST Telemedicine [facility] Hematology & Oncology - [address] [phone] Alisson Carreon MD 111 [facility], Level [address] [place] [phone] 05/04/2024 10:15 EST Ancillary Procedure [facility] Cardiology - [address] [place], [place] [phone] 05/04/2024 11:30 EST Appointment [facility] Hematology & Oncology - [address] [phone] 05/04/2024 12:00 EST Appointment [facility] Hematology & Oncology [address] [phone] 06/12/2024 13:00 EST Appointment [facility] Radiology CT - [facility] [address] [place], [place] [phone] documented as of this encounter Visit Diagnoses Not on filedocumented in this encounter
--- OUTSIDE RECORDS SUMMARY | 2024-03-20 15:17 | XMS_ITS | Encounter Summary ---
Author Organization [facility] Address [address] [place] [address] Care Team Providers Care Pipeline Superintendent Name Role Phone None, Provider Primary Care Provider Maria Fernanda Bender MD Primary Care Provider Unavailab kovacs Encounter Details Date Type Department Care Team (Late st Contact Info) Description 07/11/2003 Results Only [facility] [address] [place] [address] Maria Fernanda Red MD Social History Tobacco [...] [facility] Interventional Radiology Unit [address] [place] [address] 04/02/2024 15:15 EDT Office Visit [facility] Surgical Oncology - [address] [address] Adolfo Carreno MD 111 [facility], Level 2 [place] [phone] 04/05/2024 9:30 EDT Telemedicine [facility] Palliative Care Services [address] [place], [place] 855911 Chichi Woods MD [address] [place] [address] [phone] 04/11/2024 15:00 EDT Telemedicine [facility] Hematology & Oncology [address] [phone] Alisson Carreon MD [address] [place] [address], Level [address] [place] [phone] 04/13/2024 13:30 EDT Appointment [facility] Hematology & Oncology [address] [phone] 04/13/2024 14:00 EDT Appointment [facility] Hematology & Oncology [address] 014251 04/16/2024 10:00 EST Telemedicine [facility] - [facility] Palliative Care Services [address] [place] [address] 754161 Chichi Woods MD [address] [place] [address] [phone] 04/24/2024 9:00 EST Appointment [facility] Radiology CT Outpatient - [address] 927251 04/24/2024 11:00 EST Appointment [facility] Breast Imaging - [facility] [address] 282501 04/27/2024 12:00 EST Appointment [facility] Hematology & Oncology - [address] 401381 05/02/2024 15:00 EST Telemedicine [facility] Hematology & Oncology - [address] [phone] Alisson Carreon MD 111 [facility], Level [address] [place] [phone] 05/04/2024 10:15 EST Ancillary Procedure [facility] Cardiology - [address] [place] [address] 05/04/2024 11:30 EST Appointment [facility] Hematology & Oncology - [facility] [address] [place], [place] [phone] 05/04/2024 12:00 EST Appointment [facility] Hematology & Oncology - [address] 722791 06/12/2024 13:00 EST Appointment [facility] Radiology CT - [facility] [address] [place], [place] [phone] documented as of this encounter Procedures Procedure Name Priority Date/Time Associated Diagnosis Comments CREATININE Routine 07/11/2003 10:00 EST JODY TITER Routine 07/11/2003 10:00 EST SED RATE Routine 07/11/2003 10:00 EST COMPLETE BLOOD COUNT Routine 07/11/2003 10:00 EST SYPHILIS SERO (RPR) Routine 07/11/2003 1 0:00 EST HIV 1/2 ANTIGEN AND ANTIBODY, 4TH GENERATION Routine 07/11/2003 10:00 EST ANTI NUCLEAR AB (JODY), IFA Routine 07/11/2003 10:00 EST AST Routine 07/11/2003 10:00 EST GLUCOSE, SERUM Routine 07/11/2003 10:00 EST LIPID PROFILE (INCLUDES CHOLESTEROL, TRIGLYCERIDES, HDL, LDL) Routine 07/11/2003 10:00 EST documented in this encounter Results * SED. RATE:WESTERGREN (07/11/2003 10:00 EST) Sed. Rate Westergren 5 0 - 20 mm/hr [facility] Comment: Note: Sample greater than 4 hrs old (but less than 12 hrs) when tested. If refrigerated, sample is stable when tested within 12 hours of collection. 07/11/2003 10:0 0 EST 07/11/2003 20:24 EST Maria Fernanda Red MD HEMATOLOGY & PF4 ORD ERABLES Performing Organization Address [facility] Co al [place] [address] * (ABNORMAL) GLUCOSE, SERUM (07/11/2003 10:00 EST) Pathologist [facility] Glucose, Serum 45(LL) 70 - 110 mg/dl [facility] Comment:Sample retested, res ult confirmed 07/11/2003 10:0 0 EST 07/11/2003 20:24 EST Maria Fernanda Red MD CHEMISTRY & BLOOD GA S ORDERABLES Performing Organization Address [facility] [place] [address] * SYPHILIS SERO (RPR) (07/11/2003 10:00 EST) Pathologist [facility] Syphilis Sero (RPR) NONREACT. NR Dils [facility] 07/11/2003 10:0 0 EST 07/11/2003 20:24 EST Maria Fernanda Red MD IMMUNOLOGY AND SEROL OGY ORDERABLES Performing Organization Address [facility] [place] [address] * LIPID PROFILE (INCLUDES CHOLESTEROL, TRIGLYCERIDES, HDL, LDL) (07/11/2003 10:00 EST) Pathologist [facility] Cholesterol 174 mg/dl [facility] Comment: Desirable:<200 Borderline:200-239 High Risk:>zi=366 Triglycerides 50 35 - 160 mg/dl [facility] HDL 58 mg/dl [facility] Comment: Highly Desirable:>60 Desirable:35-60 High Risk:<35 Fasting LDL, Calculated 106 mg/dl [facility] Comment: Desirable:<130 Borderline:130-159 High Risk:>wb=289 Fasting Chol/HDL Ratio 3.0 Fasting [facility] 07/11/2003 10:0 0 EST 07/11/2003 20:24 EST Maria Fernanda Red MD CHEMISTRY & BLOOD GA S ORDERABLES Performing Organization Address [facility] Co de Phone Number [facility] [address] [place] [address] * HIV ANTIBODY (07/11/2003 10:00 EST) HIV 1/2 Antibody NONREACT. NR [facility] 07/11/2003 10:0 0 EST 07/11/2003 20:24 EST Maria Fernanda Red MD IMMUNOLOGY AND SEROL OGY ORDERABLES Performing Organization Address [facility] Co de Phone Number [facility] [address] [place] [address] * CREATININE (07/11/2003 10:00 EST) Creatinine 0.9 0.7 - 1.5 mg/dl [facility] 07/11/2003 10:0 0 EST 07/11/2003 20:24 EST Maria Fernanda Red MD HISTORICAL LAB FOR S Q LOAD Performing Organization Address [facility] Co de Phone Number [facility] [address] [place] [address] * (ABNORMAL) HEMAGRAM (07/11/2003 10:00 EST) WBC 5.49 4.0 - 12.4 K/cmm [facility] RBC 4.38 3.86 - 5.04 M/cmm [facility] Hemoglobin 14.6 11.6 - 15.2 gm/dl [facility] HCT 42.2 34.9 - 44.4 % [facility] MCV 96 81 - 98 fl [facility] MCH 33.4(H) 26.7 - 33.3 pg [facility] MCHC 34.7 32.1 - 35.9 gm/dl [facility] PLT 247 141 - 320 K/cmm [facility] RDW-CV 12.0 11.7 - 14.6 % [facility] 07/11/2003 10:0 0 EST 07/11/2003 20:24 EST Maria Fernanda Red MD HEMATOLOGY & PF4 ORD ERABLES Performing Organization Address [facility] Phone Number [facility] [address] [place] [address] * AST (07/11/2003 10:00 EST) AST 32 8 - 50 U/L [facility] 07/11/2003 10:0 0 EST 07/11/2003 20:24 EST Maria Fernanda Red MD CHEMISTRY & BLOOD GA S ORDERABLES Performing Organization Address [facility] Phone Number [facility] [address] [place] [address] * (ABNORMAL) JODY TITER (07/11/2003 10:00 EST) JODY Titer 640(H) 0 - 40 dils [facility] Comment: Diffuse and speckled JODY patterns. Result is equal to or greater than 640 dils. 07/11/2003 10:0 0 EST 07/11/2003 20:24 EST Maria Fernanda Red MD IMMUNOLOGY AND SEROL OGY ORDERABLES Performing Organization Address [facility] Phone Number [facility] [address] [place] [address] * ANTI NUCLEAR ANTIBODY (07/11/2003 10:00 EST) Anti Nuclear Ab Positive at 40 dils, titer to follow. 0 - 40 Dils [facility] 07/11/2003 10:0 0 EST 07/11/2003 20:24 EST Maria Fernanda Red MD IMMUNOLOGY AND EFRA ENG ORDERABLES [facility] [address] [place] [address] documented in this encounter Visit Diagnoses Not on filedocumented in this encounter Care Teams Pipeline Superintendent Relationship Specialty Start Date End Date None, Provider PCP - General 08/21/09 01/05/11 aMria Fernanda Red MD PCP - General 12/17/08 08/20/09 documented as of this encounter
--- OUTSIDE RECORDS SUMMARY | 2024-03-20 15:17 | XMS_ITS | Encounter Summary ---
Author Organization [facility] Address [address] [place] [address] Care Team Providers Care Crocheter Hand Name Role Phone Unavailable Primary Care Provider Unavailabl e Encounter Details Date Type Department Care Team (Late st Contact Info) Description 03/09/2004 9:26 EDT Hospital Encounter [facility] - Other [address] [place] [address] Aleta Hobson MD [address] [place] [address] [address] [place] [address] Social History Tobacco Use Types Packs/Day Years Used Date Smoking Tobacco: Never Passive Smoke Exposure: Never Smokeless Tobacco: Never Alcohol Use Standard Drinks/Week Comments Not Currently 1 (1 standard drink = 0.6 oz pur e alcohol) [facility] Utilities Answer Date Recorded In the past 12 months has e [employer], gas, oil, or water [employer] threatened to shut off services in your [...] [facility] [address] [place] [address] 04/02/2024 15:15 EDT Office Visit [facility] Surgical Oncology - [facility] [address] [place], [place] 7[address] Adolfo Carreno MD 111 [facility] Level 2 [place] [phone] 04/05/2024 9:30 EDT Telemedicine [facility] Palliative Care Services [address] [place] [address] Chichi Woods MD [address] [phone] 04/11/2024 15:00 EDT Telemedicine [facility] Hematology & Oncology - [address] 190911 lAisson Carreon MD [address] [place] [address] 2 [place] [phone] 04/13/2024 13:30 EDT Appointment [facility] Hematology & Oncology - [address] [phone] 04/13/2024 14:00 EDT Appointment [facility] Hematology & Oncology [address] [address] 04/16/2024 10:00 EST Telemedicine [facility] - [facility] Palliative Care Services [address] [place] [address] 109811 Chichi Woods MD [address] [place] [phone] 04/24/2024 9:00 EST Appointment [facility] Radiology CT Outpatient - [address] [id number] 04/24/2024 11:00 EST Appointment [facility] Breast Imaging - [address] [phone] 04/27/2024 12:00 EST Appointment [facility] [place] Hematology & Oncology - [address] [phone] 05/02/2024 15:00 EST Telemedicine [facility] Hematology & Oncology - [address] [phone] Alisson Carreon MD [address] [place] [address] 2 [place] [phone] 05/04/2024 10:15 EST Ancillary Procedure [facility] Cardiology - [address] [place] [address] 05/04/2024 11:30 EST Appointment [facility] Hematology & Oncology [address] [id number] 05/04/2024 12:00 EST Appointment [facility] Hematology & Oncology [address] [phone] 06/12/2024 13:00 EST Appointment [facility] Radiology CT [address] [phone] documented as of this encounter Procedures Procedure Name Priority Date/Time Associated Diagnosis Comments [facility] Routine 03/13/2004 11:20 EDT documented in this encounter Results * [facility] (03/13/2004 11:20 EDT) Anatomical Region Laterality Modality Other 03/13/2004 11:2 0 EDT Impressions 02/12/2009 16:40 EDT IMPRESSION: 1. Use of unopposed estrogen post androgen with no evidence of significant hyperplasia overgrowth. 2. If any abnormal bleeding, would consider endometrial biopsy. 3. Patient will now use Prometrium. D - 03/13/04 T - 03/14/04 Narrative 02/12/2009 16:40 EDT [facility] - 03/13/04 INDICATION: Use of unopposed estrogen. Patient 4-5 months with Estratest HS without Prometrium use. Rule out atypical endometrium. FINDINGS: Uterus is 59 x 33 x 42 mm. (sagittal x AP x transverse). Endometrial stripe measures 4 mm. and is regular in appearance. This is consistent with postmenopausal endometrium with limited unopposed estrogen use. Sonohysterogram was not performed. The myometrium is normal. Both ovaries are visualized and are normal. Right ovary measures 11 x 15 x 11. Left ovary measures 13 x 11 x 19. Cervix is visualized. There is no free fluid. Procedure Note Lety Ferrara MD - 02/12/2009 [facility] TRAN[facility]TR[facility] - 03/13/04 INDICATION: Use of unopposed estrogen. Patient 4-5 months with Estratest HS without Prometrium use. Rule out atypical endometrium. FINDINGS: Uterus is 59 x 33 x 42 mm. (sagittal x AP x transverse). Endometrial stripe measures 4 mm. and is regular in appearance. This is consistent with postmenopausal endometrium with limited unopposed estrogen use. Sonohysterogram was not performed. The myometrium is normal. Both ovaries are visualized and are normal. Right ovary measures 11 x 15 x 11. Left ovary measures 13 x 11 x 19. Cervix is visualized. There is no free fluid. IMPRESSION IMPRESSION: 1. Use of unopposed estrogen post androgen with no evidence of significant hyperplasia overgrowth. 2. If any abnormal bleeding, would consider endometrial biopsy. 3. Patient will now use Prometrium. D - 03/13/04 T - 03/14/04 Aleta Hobson MD [facility] documented in this encounter Visit Diagnoses Not on filedocumented in this encounter Additional Health Concerns Infection Onset Date Last Indicated Resolved Time R/O COVID-19 12/12/2023 12/12/2023 12/12/2023 15:3 5 EDT R/O COVID-19 01/08/2024 01/08/2024 01/08/2024 18:2 6 EDT R/O COVID-19 01/16/2024 01/16/2024 01/16/2024 17:5 0 EDT documented as of this encounter
--- OUTSIDE RECORDS SUMMARY | 2024-03-20 15:17 | XMS_ITS | Encounter Summary ---
Author Organization [facility] Address [address] [place] [address] Care Team Providers Care Reinstatement Clerk Name Role Phone None, Provider Primary Care Provider Maria Fernanda Bender MD Primary Care Provider Unavailab kovacs Encounter Details Date Type Department Care Team (Late st Contact Info) Description 08/20/2002 Results Only [facility] - Maple conversion [address] [place] [address] Maria Fernanda Red MD Social History Tobacco [...] [facility] Interventional Radiology Unit [address] [place] [address] 04/02/2024 15:15 EDT Office Visit [facility] Surgical Oncology - [address] [address] Adolfo Carreno MD 111 [facility], Level [address] [place] [phone] 04/05/2024 9:30 EDT Telemedicine [facility] Palliative Care Services [address] [place], [place] 466331 Chichi Woods MD [address] [place] [phone] 04/11/2024 15:[address] [facility] Hematology & Oncology [address] [phone] Alisson Carreon MD [address] [place] [address], Level [address] [place] [phone] 04/13/2024 13:[address] [facility] Hematology & Oncology [address] [phone] 04/13/2024 14:[address] [facility] Hematology & Oncology [address] [phone] 04/16/2024 10:00 EST Telemedicine [facility] - [facility] Palliative Care Services [address] [place] [phone] Chichi Woods MD [address] [place] [address] [phone] 04/24/2024 9:00 EST Appointment [facility] Radiology CT Outpatient - [address] [phone] 04/24/2024 11:00 EST Appointment [facility] Breast Imaging - [facility] [address] [phone] 04/27/2024 12:[address] [facility] Hematology & Oncology - [address] [phone] 05/02/2024 15:[address] [facility] Hematology & Oncology - [address] [phone] Alisson Carreon MD 111 [facility], Level [address] [place] [phone] 05/04/2024 10:15 EST Ancillary Procedure [facility] Cardiology - [address] [place] [address] 05/04/2024 11:[address] [facility] Hematology & Oncology - [facility] [address] [place], [place] [address] 05/04/2024 12:[address] [facility] Hematology & Oncology [address] [phone] 06/12/2024 13:00 EST Appointment [facility] Radiology CT - [facility] [address] [place], [place] [phone] documented as of this encounter Procedures Procedure Name Priority Date/Time Associated Diagnosis Comments GROUP A STREP CULTURE Routine 08/20/2002 21:17 EST documented in this encounter Results * PHARYNGITIS CULTURE (08/20/2002 21:17 EST) Specimen Description Throat [facility] Result NO GROUP A BETA STREPTOCOCCI ISOLATED [facility] Report Status Final [id number] [facility] 08/20/2002 21:1 7 EST 08/20/2002 21:17 EST Maria Fernanda Red MD MICROBIOLOGY - GENER AL ORDERABLES [facility] [address] [place] [address] documented in this encounter Visit Diagnoses Not on filedocumented in this encounter Care Teams Reinstatement Clerk Relationship Specialty Start Date End Date None, Provider PCP - General 08/21/09 01/05/11 Maria Fernanda Red MD PCP - General 12/17/08 08/20/09 documented as of this encounter
--- OUTSIDE RECORDS SUMMARY | 2024-03-20 15:17 | XMS_ITS | Encounter Summary ---
Author Organization [facility] Address [address] [place] [address] Care Team Providers Care Commercial Crabber Name Role Phone None, Provider Primary Care Provider Maria Fernanda Bender MD Primary Care Provider Unavailab le Encounter Details Date Type Department Care Team (Late st Contact Info) Description 03/09/2004 Results Only [facility] - Maple conversion [address] [place] [address] Nandini Yuen MD [address] [place] [address] [address] [place] [phone] Social History Tobacco Use Types Packs/Day Years [...] [facility] Interventional Radiology Unit [address] [place] [address] [phone] 04/02/2024 15:15 EDT Office Visit [facility] Surgical Oncology - [facility] [address] [place], [place] 703[address] Adolfo Carreno MD 111 [facility], Level [address] [place] [phone] 04/05/2024 9:30 EDT Telemedicine [facility] Palliative Care Services [address] [place] [address] [phone] Chichi Woods MD [address] [place] [phone] 04/11/2024 15:00 EDT Telemedicine [facility] Hematology & Oncology - [address] [phone] Alisson Carreon MD [address] [place] [address] 2 [place] [phone] 04/13/2024 13:30 EDT Appointment [facility] Hematology & Oncology - [address] [phone] 04/13/2024 14:00 EDT Appointment [facility] Hematology & Oncology [address] [phone] 04/16/2024 10:00 EST Telemedicine [facility] Palliative Care Services [address] [place] [address] [phone] Chichi Woods MD [address] [place] [phone] 04/24/2024 9:00 EST Appointment [facility] Radiology CT Outpatient - [address] [phone] 04/24/2024 11:00 EST Appointment [facility] Breast Imaging - [address] 130751 04/27/2024 12:00 EST Appointment [facility] Hematology & Oncology - [address] [phone] 05/02/2024 15:00 EST Telemedicine [facility] Hematology & Oncology [address] [phone] Alisson Carreon MD 111 [facility], Level [address] [place] [phone] 05/04/2024 10:15 EST Ancillary Procedure [facility] Cardiology - [place] [place] [address] 05/04/2024 11:30 EST Appointment [facility] Hematology & Oncology [address] [phone] 05/04/2024 12:00 EST Appointment [facility] Hematology & Oncology [address] [phone] 06/12/2024 13:00 EST Appointment [facility] Radiology CT - [address] [phone] documented as of this encounter Procedures Procedure Name Priority Date/Time Associated Diagnosis Comments CYTOPATHOLOGY Routine 03/09/2004 0:00 EDT documented in this encounter Results * CYTOPATHOLOGY (03/09/2004 0:00 EDT) Pathology Report: CYTOPATHOLOGY REPORT Reports generated via electronic interface contain original data; however they are lacking the format of the original report. Caution should be taken when reading/interpreti ng unformatted reports. Name: ? PARDEEP SMITH ? Accession #: ? [id number] : ? 1960 (Age: 43) ??F ?Collect Date: ? 03/09/2004 Location: ? [facility] ? Receive Date: ? 03/10/2004 Provider: ?NANDINI YUEN MD Copy to: ? Specimen/Source: ?ThinPrep Pap Test, Cervix/Endocervix Last Menstrual Period: ? 6-8 months ago Hormonal/Contracep tive Status: ? Hormone Replacement Therapy Other: ? HPVA - HPV testing requested if ASC-US on the current ThinPrep Pap test. ? SPECIMEN ADEQUACY ? Satisfactory for Evaluation - transformation zone component absent GENERAL CATEGORIZATION ? Negative for Intraepithelial Lesion or Malignancy ? Document reviewed and electronically signed by: ? YOSHI Armstrong(ASCP) ? Report Date: ??03/13/2004 13:31 End of Report [facility] 03/09/2004 03/10/2004 Nandini Yuen MD PATHOLOGY ORDERAB LES [facility] [address] [place] [address] documented in this encounter Visit Diagnoses Not on filedocumented in this encounter Care Teams Commercial Crabber Relationship Specialty Start Date End Date None, Provider PCP - General 08/21/09 01/05/11 Maria Fernanda Red MD PCP - General 12/17/08 08/20/09 documented as of this encounter
--- OUTSIDE RECORDS SUMMARY | 2024-03-20 15:17 | XMS_ITS | Encounter Summary ---
Author Organization [facility] Address [address] [place] [address] Care Team Providers Care Manager Eligibility Name Role Phone Unavailable Primary Care Provider Unavailabl e Encounter Details Date Type Department Care Team (Late st Contact Info) Description 11/21/2003 7:21 EDT - 11/21/2003 11:59 EDT Hospital Encounter [facility] [address] [place] [address] Nandini Hobson MD [address] [place] [address] [address] [place] [phone] Discharge Disposition: Auto Discharge Social History Tobacco [facility] [address] [place] [address] 04/02/2024 15:15 EDT Office Visit [facility] Surgical Oncology - [facility] [address] [place] [address] Adolfo Carreno MD 111 [facility], Level 2 [place] [phone] 04/05/2024 9:30 EDT Telemedicine [facility] Palliative Care Services [address] [place] [address] Chichi Woods MD [address] [place] [phone] 04/11/2024 15:00 EDT Telemedicine [facility] Hematology & Oncology - [address] [phone] Alisson Carreon MD [address] [place] [address] 2 [place] [phone] 04/13/2024 13:30 EDT Appointment [facility] Hematology & Oncology - [address] [phone] 04/13/2024 14:00 EDT Appointment [facility] Hematology & Oncology [address] [phone] 04/16/2024 10:00 EST Telemedicine [facility] Palliative Care Services [address] [place] [address] Chichi Woods MD [address] [place] [phone] 04/24/2024 9:00 EST Appointment [facility] Radiology CT Outpatient - [address] [id number] 04/24/2024 11:00 EST Appointment [facility] Breast Imaging - [address] [phone] 04/27/2024 12:00 EST Appointment [facility] Hematology & Oncology - [address] [address] 05/02/2024 15:00 EST Telemedicine [facility] Hematology & Oncology [address] [address] Alisson Carreon MD [address] [place] [address], [facility], Level 2 [place] [phone] 05/04/2024 10:15 EST Ancillary Procedure [facility] Cardiology - [address] [place] [address] 05/04/2024 11:30 EST Appointment [facility] Hematology & Oncology [address] [address] 05/04/2024 12:00 EST Appointment [facility] Hematology & Oncology [address] 734751 06/12/2024 13:00 EST Appointment [facility] Radiology CT - [address] [phone] documented as of this encounter Procedures Procedure Name Priority Date/Time Associated Diagnosis Comments GORDON PUENTE DIAG DIGITAL UNILATERAL ADDED VIEWS Routine 11/21/2003 13:42 EDT MA BREAST SPECIMEN Routine 11/21/2003 13 :41 EDT MA STEREOTACTIC BX Routine 11/21/2003 13 :39 EDT SURGICAL PATHOLOGY Routine 11/21/2003 0: 00 EDT documented in this encounter Results * GORDON PUENTE DIAG DIGITAL UNILATERAL ADDED VIEWS (11/21/2003 13:42 EDT) Anatomical Region Laterality Modality Other 11/21/2003 13:4 2 EDT Impressions 02/21/2009 11:14 EDT IMPRESSION: Successful stereotactic biopsy of two sites of calcifications in the lower-outer quadrant right breast but I believe that these are probably all part of one continuous process extending from the nipple to quite far posteriorly. The patient was informed that results would be available in approximately five working days. 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 Calcifications in both areas are associated with the DCIS. This malignant diagnosis is consistent with the imaging findings. Radiology will call the patient with the biopsy results. The patient will need a surgical referral. / Narrative 02/21/2009 11:14 EDT DX UNI RIGHT BREAST POST CLIP FILM RIGHT BREAST STEREOTACTIC BIOPSY IN TWO SITES, SPECIMEN RADIOGRAPHY FOR TWO SITES, AND POSTPROCEDURE DIAGNOSTIC DIGITAL MAMMOGRAPHY AT NO ADDITIONAL CHANGE, 11/21/03 CLINICAL INDICATIONS: Heterogeneous to pleomorphic calcifications were identified in the lower-outer quadrant of the right breast which demonstrated an increase from six months ago. These calcifications extend from the region at 8 o'clock quite far posteriorly going towards the chest wall and extend in a somewhat linear and radial fashion almost all of the way to the nipple. Stereotactic biopsy of two sites was requested. PROCEDURE: Informed consent was obtained for stereotactic biopsy and clip placement. First, the area located at 9 o'clock anteriorly, close to the nipple, was approached. The patient was positioned in the prone stereotactic device and the area was approached from the lateral direction. After cleansing of the skin, 1% buffered lidocaine was used for superficial anesthesia and 1% lidocaine with epinephrine was used for deeper anesthesia. Approximately 13 core specimens were then obtained with an 11-gauge Mammotome vacuum-assisted biopsy device. A ribbon-shaped SenoRx clip was then deployed in the area biopsied. Next, the patient was repositioned for approach of more posteriorly-located calcifications located at approximately 8 o'clock. Note that there are extensive calcifications extending both between the two sites as well as posterior to the second site chosen for biopsy. After cleansing of the skin, 1% buffered lidocaine was used for superficial anesthesia and 1% lidocaine with epinephrine was used for deeper anesthesia. Approximately 13 core specimens were then obtained with an 11-gauge Mammotome vacuum-assisted biopsy device. Specimen radiography demonstrated the presence of calcifications within the core specimens. An S-shaped SenoRx clip was then deployed in the area biopsied. Postprocedure mammography was obtained in CC and ML magnification digital views. These demonstrate appropriate placement of the two SenoRx clips. At the anterior 9 o'clock site, the majority of calcifications appear to have been removed. There are residual calcifications at the posterior 8 o'clock site. The poststereobiopsy images do not go as far back close to the chest wall as the previously-obtained images, but I suspect that there are more residual calcifications located more posteriorly as well. The patient tolerated the procedure well and experienced no immediate complications. Procedure Note Betzaida Schroeder MD / Tylor Williamson MD - 02/21/2009 DX UNI RIGHT BREAST POST CLIP FILM RIGHT BREAST STEREOTACTIC BIOPSY IN TWO SITES, SPECIMEN RADIOGRAPHY FOR TWO SITES, AND POSTPROCEDURE DIAGNOSTIC DIGITAL MAMMOGRAPHY AT NO ADDITIONAL CHANGE, 11/21/03 CLINICAL INDICATIONS: Heterogeneous to pleomorphic calcifications were identified in the lower-outer quadrant of the right breast which demonstrated an increase from six months ago. These calcifications extend from the region at 8 o'clock quite far posteriorly going towards the chest wall and extend in a somewhat linear and radial fashion almost all of the way to the nipple. Stereotactic biopsy of two sites was requested. PROCEDURE: Informed consent was obtained for stereotactic biopsy and clip placement. First, the area located at 9 o'clock anteriorly, close to the nipple, was approached. The patient was positioned in the prone stereotactic device and the area was approached from the lateral direction. After cleansing of the skin, 1% buffered lidocaine was used for superficial anesthesia and 1% lidocaine with epinephrine was used for deeper anesthesia. Approximately 13 core specimens were then obtained with an 11-gauge Mammotome vacuum-assisted biopsy device. A ribbon-shaped SenoRx clip was then deployed in the area biopsied. Next, the patient was repositioned for approach of more posteriorly-located calcifications located at approximately 8 o'clock. Note that there are extensive calcifications extending both between the two sites as well as posterior to the second site chosen for biopsy. After cleansing of the skin, 1% buffered lidocaine was used for superficial anesthesia and 1% lidocaine with epinephrine was used for deeper anesthesia. Approximately 13 core specimens were then obtained with an 11-gauge Mammotome vacuum-assisted biopsy device. Specimen radiography demonstrated the presence of calcifications within the core specimens. An S-shaped SenoRx clip was then deployed in the area biopsied. Postprocedure mammography was obtained in CC and ML magnification digital views. These demonstrate appropriate placement of the two SenoRx clips. At the anterior 9 o'clock site, the majority of calcifications appear to have been removed. There are residual calcifications at the posterior 8 o'clock site. The poststereobiopsy images do not go as far back close to the chest wall as the previously-obtained images, but I suspect that there are more residual calcifications located more posteriorly as well. The patient tolerated the procedure well and experienced no immediate complications. IMPRESSION IMPRESSION: Successful stereotactic biopsy of two sites of calcifications in the lower-outer quadrant right breast but I believe that these are probably all part of one continuous process extending from the nipple to quite far posteriorly. The patient was informed that results would be available in approximately five working days. 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 Calcifications in both areas are associated with the DCIS. This malignant diagnosis is consistent with the imaging findings. Radiology will call the patient with the biopsy results. The patient will need a surgical referral. / Nandini Hobson MD IMG MAMMOGRAPHY O RDERAPILI * MA BREAST SPECIMEN (11/21/2003 13:41 EDT) Anatomical Region Laterality Modality Other 11/21/2003 13:4 1 EDT Narrative 02/21/2009 11:14 EDT STEREO BX RIGHT BREAST 2 SITES CALCS Procedure Note Betzaida Schroeder MD / Tylor Williamson MD - 02/21/2009 STEREO BX RIGHT BREAST 2 SITES CALCS Nandini Hobson MD IMG MAMMOGRAPHY O RDERABLES * MA STEREOTACTIC BX (11/21/2003 13:39 EDT) Anatomical Region Laterality Modality Other 11/21/2003 13:3 9 EDT Narrative 02/21/2009 11:14 EDT STEREO BX RIGHT BREAST 2 SITES CALCS Procedure Note Betzaida Schroeder MD / Tylor Williamson MD - 02/21/2009 STEREO BX RIGHT BREAST 2 SITES CALCS Nandini Hobson MD IMG MAMMOGRAPHY O RDERABLES * SURGICAL PATHOLOGY (11/21/2003 0:00 EDT) Pathology Report: SURGICAL PATHOLOGY REPORT Reports generated via electronic interface contain original data; however they are lacking the format of the original report. Caution should be taken when reading/interpreting unformatted reports. Name: ? SUNSHINE SMITH ? Accession #: ? [id number] ? : ? 1960 (Age: 43) ??F ? Collect Date: ? 11/21/2003 ? Location: ? [facility] ? Receive Date: ? 11/21/2003 ? Provider: BETZAIDA SCHROEDER MD Copy to: NANDINI GUILLAUME MD ? Final Pathologic Diagnosis: A. ?Right breast, lower outer quadrant, 9:00 anteriorly, stereotactic vacuum-assisted large core biopsy: 1. 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 ??See comment. 2. ?Extension into lobules. 3. ?Ductal carcinoma in situ involves several cores in sections (A1) through (A4). 4. ?Microcalcifications are identified in association with ductal carcinoma in situ (sections A1 through A4). 5. ?Mild fibrocystic changes with: ? - Adenosis. - Dense interlobular fibrosis. 6. ?Skin with no pathologic features. B. ?Right breast, lower outer quadrant, 8:00 posteriorly, stereotactic vacuum-assisted large core biopsy: 1. 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 ??See comment. 2. ?Ductal carcinoma in situ is present in all sections (B1) through (B6). 3. ?Microcalcifications are identified in association with ductal carcinoma in situ (sections B1 through B4). 4. ?Mild fibrocystic changes with: ? - Adenosis. ?- Apocrine metaplasia. ?- Dense interlobular fibrosis. Comment: ? Estrogen and progesterone receptor studies have been ordered on section (A1) and will be reported separately. ??The ductal carcinoma in situ in both specimens (A) and (B) are similar in appearance. ??Sections (B1) and (B2) were shown at the intradepartmental consultation conference on 11/22/03. ??(Dr. Ahumada)/vj Document reviewed and electronically signed by: Doris Ahumada MD Report ??Date: 11/22/2003 17:28 By the signature above, the attending physician certifies that he/she has personally conducted a gross and/or microscopic examination of the described specimens and rendered or confirmed the above diagnosis. Specimen(s) Received: ? Stereotactic vacuum assisted large core biopsy, x13 in each site A. ?Area @1 @ 9 o' clock anteriorly ? B. ?Area @2 @ 8 o' clock posteriorly Clinical History: ? Clustered cals 2 sites R LOQ, prob DCIS; clinical diagnosis code: R breast calcifications Gross Description: ? Received in formalin labelled O' José and #1 right and accompanied by a radiograph are twelve irregular to cylindrical moura-yellow free floating fibrofatty soft tissues ranging from 0.4 x 0.3 cm to 1.6 x 0.3 cm. ??Additionally received in the same container in a green cassette are six irregular to cylindrical moura-yellow fibrofatty soft tissues ranging from 0.3 x 0.3 cm to 1.6 x 0.3 cm. ??The tissues in the green cassette are submitted entirely as (A1) and (A2). ??The free-floating tissue are submitted entirely as (A3) to (A6). Received in formalin labelled O' José and #2 R and accompanied by a radiograph are fifteen irregular to cylindrical moura-yellow fibrofatty free floating soft tissues ranging from 0.5 x 0.3 cm to 1.2 x 0.3 cm. ??Additionally received in the same container in a green cassette are three moura-yellow cylindrical soft tissues ranging from 0.6 x 0.3 cm to 1.4 x 0.3 cm. ??The soft tissues in the green cassette are submitted entirely as (B1). ??The free-floating soft tissues are submitted entirely as (B2) to (B6). ??(Elias Dumont)/giovanny ?? ESTROGEN AND PROGESTERONE RECEPTOR IMMUNOPEROXIDASE STAINS ? Date Ordered: ? 11/25/2003 ? Status: ?? Signed Out ?Date Complete: ? 11/25/2003 ? By: ??Cristina Bruce ? Date Reported: ? 11/25/2003 ? Interpretation ? Right breast, lower outer quadrant, 9:00 anteriorly, stereotactic, vacuum-assisted, large core biopsy: - Ductal carcinoma in situ. 1. ?Positive for estrogen receptors (in 90% of tumor cells). 2. ?Positive for progesterone receptors (in 90% of tumor cells). ?? Description ? Tissue submitted: ??Paraffin embedded tissue block labelled [id number] (A1) from [facility]. An immunohistochemical assay for estrogen receptors (ER1D5, Dako) and progesterone receptors (TcB8010, Dako) has been performed on this specimen. Standard heat activated antigen retrieval protocol (citrate buffer at pH 7.6 and 98 C x 30 minutes) was employed followed by automated immunostaining. Intranuclear receptor complexes were visualized on tissue sections using an HRP polymer immunohistochemical technique. ? Results are reported as negative (no nuclear staining) or positive with the proportion of positive cells noted. ??Estrogen receptor expression in <5% of tumor cells may not have a strong interaction with estrogen receptor modulators such as Tamoxifen. ??( ??Mikki)/eleazar ? NOTE: ??One or more of the reagents used in immunohistochemical testing in this case may not have been cleared or approved by the U.S. Food and Drug Administration (FDA). ??The FDA has determined that such clearance or approval is not necessary. ??These tests are used for clinical purposes. ??They should not be regarded as investigational or for research. ??These reagents' ??performance characteristics have been determined by [facility]. ??This laboratory is certified under the Clinical Laboratory Improvement Amendments of 1988 (CLIA-88) as qualified to perform high complexity clinical laboratory testing. Document reviewed and electronically signed by: ? Dannie Kaye MD ? Report date: 11/25/2003 By the signature above, the attending physician certifies that he/she has personally conducted a gross and/or microscopic examination of the described specimens and rendered or confirmed the above diagnosis. End of Report [facility] 11/21/2003 11/21/2003 13: 37 EDT Betzaida Schroeder MD PATHOLOGY ORD ERABLES Performing Organization Address City/State/[facility] Co de Phone Number [facility] [address] [place] [address] documented in this encounter Visit Diagnoses Not on filedocumented in this encounter
--- OUTSIDE RECORDS SUMMARY | 2024-03-20 15:17 | XMS_ITS | Encounter Summary ---
Author Organization [facility] Address [address] [place] [address] Care Team Providers Care Printing Assistant Name Role Phone None, Provider Primary Care Provider Maria Fernanda Bender MD Primary Care Provider Unavailab le Encounter Details Date Type Department Care Team (Late st Contact Info) Description 02/25/2003 Results Only [facility] [address] [place] [address] Aleta Hobson MD [address] [place] [address] [address] [place] [phone] Social History Tobacco Use Types Packs/Day Years [...] Appointment [facility] Interventional Radiology Unit [address] [place] [phone] 04/02/2024 15:15 EDT Office Visit [facility] Surgical Oncology - [facility] [address] [place], [place] 2565[address] Adolfo Carreno MD 111 [facility], [facility], Level 2 [place] [phone] 04/05/2024 9:30 EDT Telemedicine [facility] Palliative Care Services [address] [place] [address] [phone] Chichi Woods MD [address] [place] [phone] 04/11/2024 15:00 EDT Telemedicine [facility] Hematology & Oncology - [address] 092171 Alisson Carreon MD [address] [place] [address] 2 [place] [phone] 04/13/2024 13:30 EDT Appointment [facility] Hematology & Oncology - [address] [phone] 04/13/2024 14:00 EDT Appointment [facility] Hematology & Oncology [address] [phone] 04/16/2024 10:00 EST Telemedicine [facility] Palliative Care Services [address] [place] [address] [phone] Chichi Woods MD [address] [place] [phone] 04/24/2024 9:00 EST Appointment [facility] Radiology CT Outpatient - [address] [id number] 04/24/2024 11:00 EST Appointment [facility] Breast Imaging - [address] 740201 04/27/2024 12:00 EST Appointment [facility] Hematology & Oncology - [address] [phone] 05/02/2024 15:00 EST Telemedicine [facility] Hematology & Oncology [address] [address] Alisson Carreon MD 111 [facility], [facility], Level [address] [place] [phone] 05/04/2024 10:15 EST Ancillary Procedure [facility] Cardiology - [address] [place] [address] 05/04/2024 11:30 EST Appointment [facility] Hematology & Oncology [address] [address] 05/04/2024 12:00 EST Appointment [facility] Hematology & Oncology [address] [phone] 06/12/2024 13:00 EST Appointment [facility] Radiology CT - [address] [phone] documented as of this encounter Procedures Procedure Name Priority Date/Time Associated Diagnosis Comments HEPATITIS C AB W REFLEX TO HCV RNA BY PCR Routine 02/25/2003 14:54 EDT HEPATITIS B CORE ANTIBODY (TOTAL) Routine 02/25/2003 14:54 EDT HEPATITIS B SURFACE ANTIGEN Routine 02/25/2003 14:54 EDT SYPHILIS SERO (RPR) Routine 02/25/2003 1 4:54 EDT HIV 1/2 ANTIGEN AND ANTIBODY, 4TH GENERATION Routine 02/25/2003 14:54 EDT N. GONORRHOEAE AMPLIFIED PROBE Routine 02/25/2003 7:04 EDT ZZCHLAMYDIA TRACHOMATIS AMPLIFIED PROBE Routine 02/25/2003 7:04 EDT documented in this encounter Results * SYPHILIS SERO (RPR) (02/25/2003 14:54 EDT) Syphilis Sero (RPR) NONREACT. NR Dils [facility] 02/25/2003 14:5 4 EDT 02/25/2003 15:01 EDT Aleta Hobson MD IMMUNOLOGY AND SE ROLOGY ORDERABLES Performing Organization Address [facility] de Phone Number [facility] [address] [place] [address] * HIV ANTIBODY (02/25/2003 14:54 EDT) HIV 1/2 Antibody NONREACT. NR [facility] 02/25/2003 14:5 4 EDT 02/25/2003 15:01 EDT Aleta Hobson MD IMMUNOLOGY AND SE ROLOGY ORDERABLES Performing Organization Address [facility] Phone Number [facility] [address] [place] [address] * HEPATITIS C ANTIBODY (02/25/2003 14:54 EDT) Hepatitis C Ab Neg New Phonologicss ECI methodology in use 02/18/03. [facility] 02/25/2003 14:5 4 EDT 02/25/2003 15:01 EDT Aleta Hobson MD CHEMISTRY & BLOOD GAS ORDERABLES Performing Organization Address [facility] de Phone Number [facility] [address] [place] [address] * HEPATITIS B CORE ANTIBODY (02/25/2003 14:54 EDT) Hep B Core Ab Neg [facility] 02/25/2003 14:5 4 EDT 02/25/2003 15:01 EDT Aleta Hobson MD CHEMISTRY & BLOOD GAS ORDERABLES Performing Organization Address [facility]/ZIP Co de Phone Number [facility] [address] [place] [address] * HEPATITIS B SURFACE ANTIGEN (02/25/2003 14:54 EDT) Hepatitis B Surface Ag Neg New Phonologicss ECI methodology in use 02/18/03. [facility] 02/25/2003 14:5 4 EDT 02/25/2003 15:01 EDT Aleta Hobson MD CHEMISTRY & BLOOD GAS ORDERABLES Performing Organization Address [facility] Co de Phone Number [facility] [address] [place] [address] * N. GONORRHOEAE AMPLIFIED PROBE (02/25/2003 7:04 EDT) Result No Neisseria gonorrhoeae DNA detected by at home independent call center agent mediated amplification. [facility] Report Status Final [id number] [facility] Specimen Description Cervix [facility] 02/25/2003 7:04 EDT 02/26/2003 7:04 EDT Aleta Hobson MD MICROBIOLOGY - GE NERAL ORDERABLES Performing Organization Address [facility] Co de Phone Number [facility] [address] [place] [address] * CHLAMYDIA TRACHOMATIS AMPLIFIED PROBE (02/25/2003 7:04 EDT) Specimen Description Cervix [facility] Result No Chlamydia trachomatis DNA detected by at home independent call center agent mediated amplification. [facility] Report Status Final [id number] [facility] 02/25/2003 7:04 EDT 02/26/2003 7:04 EDT Aleta Hobson MD MICROBIOLOGY - GE NERAL ORDERABLES Performing Organization Address [facility] Co de Phone Number [facility] [address] [place] [address] documented in this encounter Visit Diagnoses Not on filedocumented in this encounter Care Teams Printing Assistant Relationship Specialty Start Date End Date None, Provider PCP - General 08/21/09 01/05/11 Maria Fernanda Red MD PCP - General 12/17/08 08/20/09 documented as of this encounter
--- OUTSIDE RECORDS SUMMARY | 2024-03-20 15:17 | XMS_ITS | Encounter Summary ---
Author Organization [facility] Address [address] [place] [address] Care Team Providers Care Tub Puller Name Role Phone Unavailable Primary Care Provider Unavailabl e Encounter Details Date Type Department Care Team (Late st Contact Info) Description 07/19/2003 12:38 EST Hospital Encounter [facility] - Other [address] [place] [address] Maria Fernanda Red MD Social History Tobacco [...] any time in the past 12 m [facility], were you homeless or living in a prison (including now)? No 01/10/2024 Interpersonal Safety Answer [...] [facility] Interventional Radiology Unit [address] [place] [address] 04/02/2024 15:15 EDT Office Visit [facility] Surgical Oncology - [address] [phone] Adolfo Carreno MD 111 [facility], Level 2 [place] [phone] 04/05/2024 9:30 EDT Telemedicine [facility] - [facility] Palliative Care Services [address] [place], [place] [phone] Chichi Woods MD 111 [facility], [place] [address] [place] [phone] 04/11/2024 15:00 EDT Telemedicine [facility] Hematology & Oncology - [address] [phone] Alisson Carreon MD [address] [place] [address], [facility] [address] [place] [phone] 04/13/2024 13:30 EDT Appointment [facility] Hematology & Oncology - [address] 096731 04/13/2024 14:00 EDT Appointment [facility] Hematology & Oncology [address] 805691 04/16/2024 10:00 EST Telemedicine [facility] - [facility] Palliative Care Services [address] [place] [address] Chichi Woods MD [address] [place] [address] [phone] 04/24/2024 9:00 EST Appointment [facility] Radiology CT Outpatient - [address] 338171 04/24/2024 11:00 EST Appointment [facility] Breast Imaging - [address] 432871 04/27/2024 12:00 EST Appointment [facility] Hematology & Oncology - [address] [phone] 05/02/2024 15:00 EST Telemedicine [facility] Hematology & Oncology - [address] 928151 Alisson Carreon MD [address] [place] [address], [facility] [address] [place] [phone] 05/04/2024 10:15 EST Ancillary Procedure [facility] Cardiology - [address] [place] [address] 05/04/2024 11:30 EST Appointment [facility] Hematology & Oncology [address] [address] 05/04/2024 12:00 EST Appointment [facility] Hematology & Oncology [address] [address] 06/12/2024 13:00 EST Appointment [facility] Radiology CT - [address] [address] documented as of this encounter Visit Diagnoses Not on filedocumented in this encounter Additional Health Concerns Infection Onset Date Last Indicated Resolved Time R/O COVID-19 12/12/2023 12/12/2023 12/12/2023 15:3 5 EDT R/O COVID-19 01/08/2024 01/08/2024 01/08/2024 18:2 6 EDT R/O COVID-19 01/16/2024 01/16/2024 01/16/2024 17:5 0 EDT documented as of this encounter
--- OUTSIDE RECORDS SUMMARY | 2024-03-20 15:17 | XMS_ITS | Encounter Summary ---
Author Organization [facility] Address [address] [place] [address] Care Team Providers Care Guideman Name Role Phone Unavailable Primary Care Provider Unavailabl e Encounter Details Date Type Department Care Team (Late st Contact Info) Description 12/12/2003 15:19 EDT Hospital Encounter [address] [address] Lenore Berman MD PhD [address] [place] [address] Level 2 [place] [phone] Social History Tobacco Use Types Packs/Day Years Used Date Smoking Tobacco: Never Passive Smoke Exposure: Never Smokeless Tobacco: Never Alcohol Use Standard Drinks/Week Comments Not Currently 1 (1 standard drink = 0.6 oz pur e alcohol) [facility] Utilities Answer Date Recorded In the past 12 months has [facility] [employer], gas, oil, or water [employer] threatened to shut off services in your [...] Appointment [facility] Interventional Radiology Unit [address] [place] [address] 04/02/2024 15:15 EDT Office Visit [facility] Surgical Oncology - [facility] [address], [place] [phone] Adolfo Carreno MD [address] [place] [address], Level 2 [place] [phone] 04/05/2024 9:30 EDT Telemedicine [facility] - [facility] Services [address] [place] [address] [phone] Chichi Woods MD [address] [place] [address] 262 [place] [phone] 04/11/2024 15:00 EDT Telemedicine [facility] Hematology & Oncology - [address] [phone] Alisson Carreon MD [address] [place] [address] 2 [place] [phone] 04/13/2024 13:30 EDT Appointment [facility] Hematology & Oncology - [address] [phone] 04/13/2024 14:00 EDT Appointment [facility] Hematology & Oncology - [address] [phone] 04/16/2024 10:00 EST Telemedicine [facility] - [facility] [address] [place] [address] 746181 Chichi Woods MD [address] [place] [phone] 04/24/2024 9:00 EST Appointment [facility] Radiology CT Outpatient - [address] [id number] 04/24/2024 11:00 EST Appointment [facility] Breast Imaging - [address] [phone] 04/27/2024 12:00 EST Appointment [facility] Hematology & Oncology - [address] 273291 05/02/2024 15:00 EST Telemedicine [facility] Hematology & Oncology - [address] 083051 Alisson Carreon MD [address] [place] [address] 2 [place] [phone] 05/04/2024 10:15 EST Ancillary Procedure [facility] Cardiology - [address] [place] [address] 05/04/2024 11:30 EST Appointment [facility] Hematology & Oncology [address] 947661 05/04/2024 12:00 EST Appointment [facility] Hematology & Oncology [address] 380731 06/12/2024 13:00 EST Appointment [facility] Radiology CT - [address] [phone] documented as of this encounter Procedures Procedure Name Priority Date/Time Associated Diagnosis Comments MR BREAST BILATERAL W/WO CONTRAST Routine 12/12/2003 17:21 EDT documented in this encounter Results * MR BREAST BILATERAL W/WO CONTRAST (12/12/2003 17:21 EDT) Anatomical Region Laterality Modality Other 12/12/2003 17:2 1 EDT Impressions 02/24/2009 17:31 EDT IMPRESSION: RIGHT BREAST - BI-RADS CATEGORY 5: 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 Additional foci of presumed DCIS are noted in the upper outer quadrant at 10-11:00, which would be c/w multi-centric disease. RECOMMENDATION: If the patient desires, we could schedule her for a second look ultrasound of the upper outer quadrant of the right breast and if a suspicious lesion were seen, this could be biopsied under ultrasound guidance. However, if the patient, based on the current imaging findings, is comfortable with undergoing mastectomy, no further imaging followup is felt to be indicated. LEFT BREAST - BI-RADS CATEGORY 1: NORMAL RECOMMENDATION: Continue routine annual screening mammography. /evette Narrative 02/24/2009 17:31 EDT RIGHT BR DCIS, SURGERY 12/12 R/O MULTICENTRIC DCIS ?? MVP, [id number] BILATERAL BREAST MR 12/12/03 HISTORY: Recent stereobiopsy demonstrating two foci of DCIS marked with calcifications on mammography. They are located at 8:00 and 9:00 in the right breast. We are asked to perform a bilateral breast MR to rule out more extensive disease in the right breast and to rule out left breast malignancy. TECHNIQUE: T1 axial, Fast STIR axial and sagittal, dynamic pre- and postgadolinium fat-suppressed T1 axial, and subtraction images from the pre- and postgadolinium images of both breasts were obtained. RIGHT BREAST: On the postgadolinium enhanced images, there are two foci of increased signal intensity at 8:00 and 9:00. These are associated with clip artifact and are consistent with the known foci of recently biopsy proven DCIS. Additionally, however, there is a fairly prominent linear and nodular area of high signal intensity at 10-11:00, which overall measures about 2.5cm from front to back. The largest nodular component of this region measures about 11mm in size. The remainder of the breast is unremarkable. There is no evidence of axillary adenopathy on the right. LEFT BREAST: No abnormally enhancing focal lesions are seen in the left breast. Procedure Note Tylor Williamson MD / Deana Harris MD - 02/24/2009 RIGHT BR DCIS, SURGERY 12/12 R/O MULTICENTRIC DCIS MVP, [id number] BILATERAL BREAST MR 12/12/03 HISTORY: Recent stereobiopsy demonstrating two foci of DCIS marked with calcifications on mammography. They are located at 8:00 and 9:00 in the right breast. We are asked to perform a bilateral breast MR to rule out more extensive disease in the right breast and to rule out left breast malignancy. TECHNIQUE: T1 axial, Fast STIR axial and sagittal, dynamic pre- and postgadolinium fat-suppressed T1 axial, and subtraction images from the pre- and postgadolinium images of both breasts were obtained. RIGHT BREAST: On the postgadolinium enhanced images, there are two foci of increased signal intensity at 8:00 and 9:00. These are associated with clip artifact and are consistent with the known foci of recently biopsy proven DCIS. Additionally, however, there is a fairly prominent linear and nodular area of high signal intensity at 10-11:00, which overall measures about 2.5cm from front to back. The largest nodular component of this region measures about 11mm in size. The remainder of the breast is unremarkable. There is no evidence of axillary adenopathy on the right. LEFT BREAST: No abnormally enhancing focal lesions are seen in the left breast. 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 Additional foci of presumed DCIS are noted in the upper outer quadrant at 10-11:00, which would be c/w multi-centric disease. RECOMMENDATION: If the patient desires, we could schedule her for a second look ultrasound of the upper outer quadrant of the right breast and if a suspicious lesion were seen, this could be biopsied under ultrasound guidance. However, if the patient, based on the current imaging findings, is comfortable with undergoing mastectomy, no further imaging followup is felt to be indicated. LEFT BREAST - BI-RADS CATEGORY 1: NORMAL RECOMMENDATION: Continue routine annual screening mammography. /evette Abby Kearney MD IMG MRI ORDERABLE S documented in this encounter Visit Diagnoses Not on filedocumented in this encounter Additional Health Concerns Infection Onset Date Last Indicated Resolved Time R/O COVID-19 12/12/2023 12/12/2023 12/12/2023 15:3 5 EDT R/O COVID-19 01/08/2024 01/08/2024 01/08/2024 18:2 6 EDT R/O COVID-19 01/16/2024 01/16/2024 01/16/2024 17:5 0 EDT documented as of this encounter
--- OUTSIDE RECORDS SUMMARY | 2024-03-20 15:17 | XMS_ITS | Encounter Summary ---
Author Organization [facility] Address [address] [place] [address] Care Team Providers Care Waste Management Specialist Name Role Phone Unavailable Primary Care Provider Unavailabl e Encounter Details Date Type Department Care Team (Latest Contact Info) Description 01/30/2004 7:10 EDT - 01/31/2004 11:59 EDT Hospital Encounter [facility] General Surgery Unit [address] [place] [address] Abby Kearney MD [address] [place] [address] [place] [phone] Discharge Disposition: Home or Self Care Social [...] Appointment [facility] Interventional Radiology Unit [address] [place] [address] 04/02/2024 15:15 EDT Office Visit [facility] Surgical Oncology - [address] [address] Adolfo Carreno MD 111 [facility], Level 2 [place] [phone] 04/05/2024 9:30 EDT Telemedicine [facility] Palliative Care Services [address] [place] [address] 425301 Chichi Woods MD [address] [place] [address] [phone] 04/11/2024 15:00 EDT Telemedicine [facility] Hematology & Oncology - [address] 376061 Alisson Carreon MD [address] [place] [address], Level 2 [place] [phone] 04/13/2024 13:30 EDT Appointment [facility] Hematology & Oncology - [address] 167981 04/13/2024 14:00 EDT Appointment [facility] Hematology & Oncology [address] 779451 04/16/2024 10:00 EST Telemedicine [facility] Palliative Care Services [address] [place] [address] [phone] Chichi Woods MD [address] [place] [address] [phone] 04/24/2024 9:00 EST Appointment [facility] Radiology CT Outpatient - [address] 088091 04/24/2024 11:00 EST Appointment [facility] Breast Imaging - [address] [phone] 04/27/2024 12:00 EST Appointment [facility] Hematology & Oncology - [address] [address] 05/02/2024 15:00 EST Telemedicine [facility] Hematology & Oncology - [address] [address] Alisson Carreon MD [address] [place] [address], Level 2 [place] [phone] 05/04/2024 10:15 EST Ancillary Procedure [facility] Cardiology - [address] [place] [address] 05/04/2024 11:30 EST Appointment [facility] Hematology & Oncology - [address] 133161 05/04/2024 12:00 EST Appointment [facility] Hematology & Oncology - [address] 236721 06/12/2024 13:00 EST Appointment [facility] Radiology CT - [address] 884151 documented as of this encounter Visit Diagnoses Not on filedocumented in this encounter
--- OUTSIDE RECORDS SUMMARY | 2024-03-20 15:17 | XMS_ITS | Encounter Summary ---
Author Organization [facility] Address [address] [place] [address] Care Team Providers Care Licensing Coordinator Name Role Phone None, Provider Primary Care Provider Maria Fernanda Bender MD Primary Care Provider UnavailLidna Acosta MD Primary Care Provider [phone] Encounter Details Date Type Department Care Team (Late st Contact Info) Description 08/13/2003 Before PRISM Converted Visit (Maple) [facility] - Maple conversion [address] [place] [address] Reta Caldwell MD [address] [place] [phone] Social History Tobacco Use Types Packs/Day Years [...] [facility] [address] [place], [place] 940341 04/02/2024 15:15 EDT Office Visit [facility] Surgical Oncology - [facility] [address] [place] [address] Adolfo Carreno MD 111 [facility], Level 2 [place] [phone] 04/05/2024 9:30 EDT Telemedicine [facility] [address] [place] [address] [phone] Chichi Woods MD [address] [place] [address] [phone] 04/11/2024 15:00 EDT Telemedicine [facility] Hematology & Oncology - [address] 199291 Alisson Carreon MD [address] [place] [address], Level [address] [place] [phone] 04/13/2024 13:30 EDT Appointment [facility] Hematology & Oncology - [address] 922151 04/13/2024 14:00 EDT Appointment [facility] Hematology & Oncology [address] 098001 04/16/2024 10:00 EST Telemedicine [facility] Palliative Care Services [address] [place] [address] [phone] Chichi Woods MD [address] [place] [address] [phone] 04/24/2024 9:00 EST Appointment [facility] Radiology CT Outpatient - [address] [phone] 04/24/2024 11:00 EST Appointment [facility] Breast Imaging - [address] 667011 04/27/2024 12:00 EST Appointment [facility] Hematology & Oncology - [address] [address] 05/02/2024 15:00 EST Telemedicine [facility] Hematology & Oncology [address] [address] Alisson Carreon MD [address] [place] [address], [facility], Level [address] [place] [phone] 05/04/2024 10:15 EST Ancillary Procedure [facility] Cardiology - [address] [place] [address] 05/04/2024 11:30 EST Appointment [facility] Hematology & Oncology [address] [address] 05/04/2024 12:00 EST Appointment [facility] Hematology & Oncology [address] [address] 06/12/2024 13:00 EST Appointment [facility] Radiology CT - [address] 276391 documented as of this encounter Visit Diagnoses Not on filedocumented in this encounter Care Teams Licensing Coordinator Relationship Specialty Start Date End Date None, Provider PCP - General 08/21/09 01/05/11 Maria Fernanda Red MD PCP - General 12/17/08 08/20/09 Linda Blancas MD [facility] [address] [place] [address] PCP - General 01/06/11 documented as of this encounter
--- OUTSIDE RECORDS SUMMARY | 2024-03-20 15:17 | XMS_ITS | Encounter Summary ---
Author Organization [facility] Address [address] [place] [address] Care Team Providers Care Remote Sensing Advisor Name Role Phone Unavailable Primary Care Provider Unavailabl e Encounter Details Date Type Department Care Team (Latest Contact Info) Description 05/31/2004 1:19 EST - 05/31/2004 11:59 EST Hospital Encounter [facility] Emergency Department - [address] [phone] Emergency, MD Keegan Discharge Disposition: Home or [...] [facility] Interventional Radiology Unit [address] [place] [address] [phone] 04/02/2024 15:15 EDT Office Visit [facility] Surgical Oncology - [address] 695591 Adolfo Carreno MD 111 [facility], Level 2 [place] [phone] 04/05/2024 9:30 EDT Telemedicine [facility] Palliative Care Services [address] [place] [address] [phone] Chichi Woods MD [address] [place] [address] [phone] 04/11/2024 15:00 EDT Telemedicine [facility] Hematology & Oncology - [address] [phone] Alisson Carreon MD [address] [place] [address], Level [address] [place] [phone] 04/13/2024 13:30 EDT Appointment [facility] Hematology & Oncology [address] 238331 04/13/2024 14:00 EDT Appointment [facility] Hematology & Oncology [address] 127041 04/16/2024 10:00 EST Telemedicine [facility] Palliative Care Services [address] [place] [address] [phone] Chichi Woods MD [address] [place] [address] [phone] 04/24/2024 9:00 EST Appointment [facility] Radiology CT Outpatient - [address] [address] 04/24/2024 11:00 EST Appointment [facility] Breast Imaging - [address] 054631 04/27/2024 12:00 EST Appointment [facility] Hematology & Oncology - [address] 488331 05/02/2024 15:00 EST Telemedicine [facility] Hematology & Oncology [address] [address] Alisson Carreon MD [address] [place] [address], Level [address] [place] [phone] 05/04/2024 10:15 EST Ancillary Procedure [facility] Cardiology - [place] [address] 05/04/2024 11:30 EST Appointment [facility] Hematology & Oncology [address] 154531 05/04/2024 12:00 EST Appointment [facility] Hematology & Oncology [address] 301181 06/12/2024 13:00 EST Appointment [facility] Radiology CT - [address] [phone] documented as of this encounter Visit Diagnoses Not on filedocumented in this encounter
--- OUTSIDE RECORDS SUMMARY | 2024-03-20 15:17 | XMS_ITS | Encounter Summary ---
Author Organization [facility] Address [address] [place] [address] Care Team Providers Care Can Technician Name Role Phone Unavailable Primary Care Provider Unavailabl e Encounter Details Date Type Department Care Team (Late st Contact Info) Description 09/23/2003 14:32 EDT Hospital Encounter [address] [address] Nithin Albert MD [address] [facility] [address] [place] [address] Discharge Disposition: Auto Discharge Social History Tobacco [...] EDT Appointment [facility] Interventional Radiology Unit [address] [place] [address] [phone] 04/02/2024 15:15 EDT Office Visit [facility] Surgical Oncology - [address] 126781 Adolfo Carreno MD 111 [facility], Level 2 [place] [phone] 04/05/2024 9:30 EDT Telemedicine [facility] Palliative Care Services [address] [place] [address] [phone] Chichi Woods MD [address] [place] [address] [phone] 04/11/2024 15:00 EDT Telemedicine [facility] Hematology & Oncology - [address] [address] Alisson Carreon MD [address] [place] [address] Level 2 [place] [phone] 04/13/2024 13:30 EDT Appointment [facility] Hematology & Oncology - [address] [address] 04/13/2024 14:00 EDT Appointment [facility] Hematology & Oncology [address] [address] 04/16/2024 10:00 EST Telemedicine [facility] Palliative Care Services [address] [place] [address] [phone] Chichi Woods MD [address] [place] [address] [phone] 04/24/2024 9:00 EST Appointment [facility] Radiology CT Outpatient - [address] [id number] 04/24/2024 11:00 EST Appointment [facility] Breast Imaging - [address] [phone] 04/27/2024 12:00 EST Appointment [facility] Hematology & Oncology - [address] [address] 05/02/2024 15:00 EST Telemedicine [facility] Hematology & Oncology [address] 538381 Alisson Carreon MD [address] [place] [address], Level [address] [place] [phone] 05/04/2024 10:15 EST Ancillary Procedure [facility] Cardiology - [address] [place] [address] 05/04/2024 11:30 EST Appointment [facility] Hematology & Oncology - [address] 667331 05/04/2024 12:00 EST Appointment [facility] Hematology & Oncology [address] 129971 06/12/2024 13:00 EST Appointment [facility] Radiology CT - [address] 837481 documented as of this encounter Visit Diagnoses Not on filedocumented in this encounter
--- OUTSIDE RECORDS SUMMARY | 2024-03-20 15:17 | XMS_ITS | Encounter Summary ---
Author Organization [facility] Address [address] [place] [address] Care Team Providers Care [employer] Faculty Member Name Role Phone Unavailable Primary Care Provider Unavailabl e Encounter Details Date Type Department Care Team (Latest Contact Info) Description 08/12/2003 8:00 EST - 08/12/2003 11:59 EST Hospital Encounter [facility] [address] [place] [phone] Reta Caldwell MD [address] [place] [address] [phone] Discharge Disposition: Auto Discharge Social History Tobacco [facility] [address] [place] [address] [phone] 04/02/2024 15:[address] [facility] Surgical Oncology - [facility] [address] [place], [place] [phone] Adolfo Carreno MD 111 [facility], Level [address] [place] [phone] 04/05/2024 9:30 EDT Telemedicine [facility] [address] [place] [address] [phone] Chichi Woods MD [address] [place] [address] [phone] 04/11/2024 15:00 EDT Telemedicine [facility] Hematology & Oncology - [address] [phone] Alisson Carreon MD [address] [place] [address] 2 [place] [phone] 04/13/2024 13:30 EDT Appointment [facility] Hematology & Oncology - [address] [phone] 04/13/2024 14:00 EDT Appointment [facility] Hematology & Oncology [address] [phone] 04/16/2024 10:00 EST Telemedicine [facility] [address] [place] [address] [phone] Chichi Woods MD [address] [place] [address] [phone] 04/24/2024 9:00 EST Appointment [facility] Radiology CT Outpatient - [address] [phone] 04/24/2024 11:[address] [facility] Breast Imaging - [address] [address] 04/27/2024 12:00 EST Appointment [facility] Hematology & Oncology - [address] [address] 05/02/2024 15:00 EST Telemedicine [facility] Hematology & Oncology [address] [address] Alisson Carreon MD [address] [facility], [address] [place] [phone] 05/04/2024 10:[address] [facility] Cardiology - [address] [place] [address] 05/04/2024 11:30 EST Appointment [facility] Hematology & Oncology [address] [address] 05/04/2024 12:00 EST Appointment [facility] Hematology & Oncology [address] [phone] 06/12/2024 13:00 EST Appointment [facility] Radiology CT - [address] [phone] documented as of this encounter Procedures Procedure Name Priority Date/Time Associated Diagnosis Comments SURGICAL PATHOLOGY Routine 08/12/2003 0:00 EST documented in this encounter Results * SURGICAL PATHOLOGY (08/12/2003 0:00 EST) Pathology Report: SURGICAL PATHOLOGY REPORT Reports generated via electronic interface contain original data; however they are lacking the format of the original report. Caution should be taken when reading/interpreti ng unformatted reports. Name: ? PARDEEP SMITH ? Accession #: ? [id number] ? : ? 1960 (Age: 43) ??F ? Collect Date: ? 08/12/2003 ? Location: ? [facility] ? Receive Date: ? 08/12/2003 ? Provider: RETA CALDWELL MD Copy to: ANNELIESE GUILLAUME MD ? Final Pathologic Diagnosis: ? Lipoma, shoulder, right, excision: - Consistent with lipoma. Document reviewed and electronically signed by: Jin Harrison MD Report ??Date: 08/13/2003 15:07 By the signature above, the attending physician certifies that he/she has personally conducted a gross and/or microscopic examination of the described specimens and rendered or confirmed the above diagnosis. Specimen(s) Received: ? Lipoma R shoulder Clinical History: ? Recurrent L shoulder lipoma Gross Description: ? Received in formalin labelled [place] and lipoma L shoulder are two yellow multilobulated partially fragmented unoriented soft tissue fragments measuring 9.5 x 6.5 x 2.5 cm in aggregate. ??Prior to sectioning, the smaller is inked blue and the larger tissue inked black. The cut surfaces of both tissues are moura-yellow and homogeneous. ??No areas of hemorrhage are grossly identified. The specimens are inked, serially sectioned and inside technical sales representative sections are submitted as (A1) through (A4). ??(Marek Barger)/[facility] End of Report RENÉE CALDERA 08/12/2003 08/12/2003 13: 13 EST Reta Caldwell MD PATHOLOGY ORDERABLES RENÉE CALDERA [address] [place] [address] documented in this encounter Visit Diagnoses Not on filedocumented in this encounter
--- OUTSIDE RECORDS SUMMARY | 2024-03-20 15:17 | XMS_ITS | Encounter Summary ---
Author Organization [facility] Address [address] [place] [address] Care Team Providers Care Wood Carving Machine Operator Name Role Phone Unavailable Primary Care Provider Unavailabl e Encounter Details Date Type Department Care Team (Late st Contact Info) Description 06/10/2004 10:09 EST - 06/10/2004 11:59 EST Hospital Encounter [facility] - Other [address] [place] [address] Nandini Yuen MD [address] [place] [address] [address] [place] [phone] Discharge Disposition: Auto Discharge Social History Tobacco [...] Appointment [facility] Interventional Radiology Unit [address] [place] [address] 04/02/2024 15:15 EDT Office Visit [facility] Surgical Oncology - [facility] [address] [place] [address] Adolfo Carreno MD [address] [facility], Level [address] [place] [phone] 04/05/2024 9:30 EDT Telemedicine [facility] [address] [place] [address] [phone] Chichi Woods MD [address] [place] [address] [phone] 04/11/2024 15:00 EDT Telemedicine [facility] Hematology & Oncology - [address] [phone] Alisson Carreon MD [address] [place] [address], [address] [place] [phone] 04/13/2024 13:30 EDT Appointment [facility] Hematology & Oncology - [address] [phone] 04/13/2024 14:00 EDT Appointment [facility] Hematology & Oncology [address] 165361 04/16/2024 10:00 EST Telemedicine [facility] [address] [place] [address] [phone] Chichi Woods MD [address] [place] [address] [phone] 04/24/2024 9:00 EST Appointment [facility] Radiology CT Outpatient - [address] [phone] 04/24/2024 11:00 EST Appointment [facility] Breast Imaging - [address] [phone] 04/27/2024 12:00 EST Appointment [facility] Hematology & Oncology [address] [address] 05/02/2024 15:00 EST Telemedicine [facility] Hematology & Oncology [address] [address] Alisson Carreon MD [address] [place] [address], [address] [place] [phone] 05/04/2024 10:15 EST Ancillary Procedure [facility] Cardiology - [address] [place] [address] 05/04/2024 11:30 EST Appointment [facility] Hematology & Oncology [address] [address] 05/04/2024 12:00 EST Appointment [facility] Hematology & Oncology [address] [phone] 06/12/2024 13:00 EST Appointment [facility] Radiology CT - [address] [phone] documented as of this encounter Procedures Procedure Name Priority Date/Time Associated Diagnosis Comments GORDON PUENTE DIAG UNI DIGITAL Routine 06/10/2004 16:47 EST documented in this encounter Results * GORDON PUENTE DIAG UNI DIGITAL (06/10/2004 16:47 EST) Anatomical Region Laterality Modality Other 06/10/2004 16:4 7 EST Impressions 02/13/2009 14:27 EDT IMPRESSION: LEFT BREAST - CATEGORY 2 Normal-appearing implant. Benign, no evidence of malignancy. Normal interval follow-up is recommended in 12 months. Results and recommendations for follow-up were discussed with the patient by the technologist at the time of the exam. OVERALL ASSESSMENT - BENIGN END OF IMPRESSION Narrative 02/13/2009 14:27 EDT DX UNI MAMMO/ LT ?? S/P RT TOTAL MASCETOMY 01/30/04 SCREEN LT [PCP ANNELIESE GUILLAUME, REQ NANDINI YUEN]DATE PER PT Comparison is made to films from 04-10-2003 (left). Left Breast Findings (CAD used to interpret diagnostic digital, implant displaced craniocaudal and implant displaced mediolateral oblique projections): There are scattered fibroglandular densities. A normal-appearing retropectoral saline implant is present, new since the last screening study. No significant masses, calcifications or other abnormalities are seen. Procedure Note Betzaida Tracy MD - 02/13/2009 DX UNI MAMMO/ LT S/P RT TOTAL MASCETOMY 01/30/04 SCREEN LT [PCP ANNELIESE GUILLAUME, REQ NANDINI YUEN]DATE PER PT Comparison is made to films from 04-10-2003 (left). Left Breast Findings (CAD used to interpret diagnostic digital, implant displaced craniocaudal and implant displaced mediolateral oblique projections): There are scattered fibroglandular densities. A normal-appearing retropectoral saline implant is present, new since the last screening study. No significant masses, calcifications or other abnormalities are seen. IMPRESSION IMPRESSION: LEFT BREAST - CATEGORY 2 Normal-appearing implant. Benign, no evidence of malignancy. Normal interval follow-up is recommended in 12 months. Results and recommendations for follow-up were discussed with the patient by the technologist at the time of the exam. OVERALL ASSESSMENT - BENIGN END OF IMPRESSION Nandini Yuen MD IMG MAMMOGRAPHY O RDERABLES documented in this encounter Visit Diagnoses Not on filedocumented in this encounter
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
--- OUTSIDE RECORDS SUMMARY | 2024-03-20 15:17 | XMS_ITS | Encounter Summary ---
Author Organization [facility] Address [address] [place] [address] Care Team Providers Care Clearing Hand Name Role Phone Unavailable Primary Care Provider Unavailabl e Encounter Details Date Type Department Care Team (Late st Contact Info) Description 02/19/2002 11:25 EDT Hospital Encounter [facility] - Other [address] [place] [address] Maria Fernanda Red MD Unknown, Provider, Social History Tobacco Use Types Packs/Day Years Used Date Smoking Tobacco: Never Passive Smoke Exposure: Never Smokeless Tobacco: Never Alcohol Use Standard Drinks/Week Comments Not Currently 1 (1 standard drink = 0.6 oz pur e alcohol) [facility] Utilities Answer Date Recorded In the past [...] EDT Appointment [facility] Interventional Radiology Unit [address] [place] [address] [phone] 04/02/2024 15:15 EDT Office Visit [facility] Surgical Oncology - [facility] [address] [place] [address] Adolfo Carreno MD 111 [facility], Level 2 [place] [phone] 04/05/2024 9:30 EDT Telemedicine [facility] Palliative Care Services [address], [place] [phone] Chichi Woods MD 111 [facility], [address] [phone] 04/11/2024 15:[address] [facility] Hematology & Oncology - [address] [phone] Alisson Carreon MD [address] [place] [address], [facility] 2 [place] [phone] 04/13/2024 13:[address] [facility] Hematology & Oncology - [address] [phone] 04/13/2024 14:[address] [facility] Hematology & Oncology [address] 158271 04/16/2024 10:00 EST Telemedicine [facility] - [facility] Palliative Care Services [address] [place] [address] Chichi Woods MD [address] [place] [phone] 04/24/2024 9:00 EST Appointment [facility] Radiology CT Outpatient - [address] [phone] 04/24/2024 11:00 EST Appointment [facility] Breast Imaging - [facility] [address] 475[address] 04/27/2024 12:[address] [facility] Hematology & Oncology - [address] [phone] 05/02/2024 15:[address] [facility] Hematology & Oncology - [address] [address]131 Alisson Carreon MD [address] [place] [address], [facility] 2 [place] [phone] 05/04/2024 10:15 EST Ancillary Procedure [facility] Cardiology - [address] [place] [address] 05/04/2024 11:[address] [facility] Hematology & Oncology [facility] [address] [place] [address] 05/04/2024 12:[address] [facility] Hematology & Oncology [facility] [address], [place] 485771 06/12/2024 13:00 EST Appointment [facility] Radiology CT - [facility] [address] [place], [place] [phone] documented as of this encounter Procedures Procedure Name Priority Date/Time Associated Diagnosis Comments HIV AB Routine 02/19/2002 8:20 EDT HIV CONSENT REQUEST Routine 02/19/2002 8 :20 EDT COMPLETE BLOOD COUNT Routine 02/19/2002 8:20 EDT TSH Routine 02/19/2002 8:20 EDT LIPID PROFILE (INCLUDES CHOLESTEROL, TRIGLYCERIDES, HDL, LDL) Routine 02/19/2002 8:20 EDT COMPREHENSIVE METABOLIC PANEL (CMP) Routine 02/19/2002 8:20 EDT documented in this encounter Results * HIV CONSENT REQUEST (02/19/2002 8:20 EDT) HIV Consent Request Consent form required prior to testing. Specimen will be discarded in 7 days. [facility] 02/19/2002 8:20 EDT 02/20/2002 8:14 EDT Maria Fernanda Red MD HISTORICAL LAB FOR S Q LOAD [facility] [address] [place] [address] * TSH (02/19/2002 8:20 EDT) Pathologist [facility] TSH 2.21 0.35 - 5.50 uIU/ml [facility] 02/19/2002 8:20 EDT 02/19/2002 21:06 EDT Maria Fernanda Red MD CHEMISTRY & BLOOD GA S ORDERABLES Performing Organization Address [facility] Phone Number [facility] [address] [place] [address] * LIPID PROFILE (INCLUDES CHOLESTEROL, TRIGLYCERIDES, HDL, LDL) (02/19/2002 8:20 EDT) Pathologist [facility] Cholesterol 191 mg/dl [facility] Comment: Desirable:<200 Borderline:200-239 High Risk:>hx=237 Fasting Triglycerides 94 35 - 160 mg/dl [facility] Comment:Fasting HDL 50 mg/dl [facility] Comment: Highly Desirable:>60 Desirable:35-60 High Risk:<35 Fasting LDL, Calculated 122 mg/dl [facility] Comment: Desirable:<130 Borderline:130-159 High Risk:>uv=001 Fasting Chol/HDL Ratio 3.8 Fasting [facility] 02/19/2002 8:20 EDT 02/19/2002 21:06 EDT Maria Fernanda Red MD CHEMISTRY & BLOOD GA S ORDERABLES Performing Organization Address [facility] Phone Number [facility] [address] [place] [address] * HIV AB (02/19/2002 8:20 EDT) Pathologist [facility] HIV 1/2 Antibody NONREACT. NR [facility] HIV Consent Request Consent form required prior to testing. Specimen will be discarded in 7 days. Consent form received [facility] 02/19/2002 8:20 EDT 02/19/2002 21:06 EDT Maria Fernanda Red MD HISTORICAL LAB FOR S Q LOAD Performing Organization Address [facility] Phone Number [facility] [address] [place] [address] * COMPREHENSIVE METABOLIC PANEL (02/19/2002 8:20 EDT) Potassium 3.7 3.5 - 5.0 mEq/L [facility] Comment:Fasting Sodium 139 136 - 145 mEq/L [facility] Comment:Fasting Chloride 104 96 - 110 mEq/L [facility] Comment:Fasting CO2 25 24 - 30 mEq/L [facility] Comment:Fasting Total Alkaline Phosphatase 70 38 - 126 U/L [facility] Comment:Fasting Bilirubin, Total 0.9 0.2 - 1.3 mg/dl [facility] Comment:Fasting AST 29 8 - 50 U/L [facility] Comment:Fasting ALT 37 15 - 75 U/L [facility] Comment:Fasting Albumin 4.2 3.0 - 5.5 g/dl [facility] Comment:Fasting Total Protein 7.5 6.0 - 8.5 g/dl [facility] Comment:Fasting Creatinine 0.9 0.7 - 1.5 mg/dl [facility] Comment:Fasting BUN 13 10 - 26 mg/dl [facility] Comment:Fasting Calcium 9.7 8.5 - 10.5 mg/dl [facility] Comment:Fasting Calculated Calcium 9.9 8.5 - 10.5 mg/dl [facility] Comment:Fasting Glucose, Serum 84 70 - 110 mg/dl [facility] Comment:Fasting Albumin/Globulin Ratio 1.3 Fasting [facility] 02/19/2002 8:20 EDT 02/19/2002 21:06 EDT Maria Fernanda Red MD CHEMISTRY & BLOOD GA S ORDERABLES [facility] [address] [place] [address] * (ABNORMAL) HEMAGRAM (02/19/2002 8:20 EDT) WBC 7.45 4.0 - 12.4 K/cmm [facility] RBC 4.42 3.86 - 5.04 M/cmm [facility] Hemoglobin 14.7 11.6 - 15.2 gm/dl [facility] HCT 42.0 34.9 - 44.4 % [facility] MCV 95 81 - 98 fl [facility] MCH 33.2 26.7 - 33.3 pg [facility] MCHC 34.9 32.1 - 35.9 gm/dl [facility] PLT 226 141 - 320 K/cmm [facility] RDW-CV 11.6(L) 11.7 - 14.6 % [facility] 02/19/2002 8:20 EDT 02/19/2002 21:06 EDT Maria Fernanda Red MD HEMATOLOGY & PF4 ORD ERABLES [facility] [address] [place] [address] documented in this encounter Visit Diagnoses Not on filedocumented in this encounter Additional Health Concerns Infection Onset Date Last Indicated Resolved Time R/O COVID-19 12/12/2023 12/12/2023 12/12/2023 15:3 5 EDT R/O COVID-19 01/08/2024 01/08/2024 01/08/2024 18:2 6 EDT R/O COVID-19 01/16/2024 01/16/2024 01/16/2024 17:5 0 EDT documented as of this encounter
--- OUTSIDE RECORDS SUMMARY | 2024-03-20 15:17 | XMS_ITS | Encounter Summary ---
Author Organization [facility] Address [address] [place] [address] Care Team Providers Care Chief Physical Therapist Name Role Phone Unavailable Primary Care Provider Unavailabl e Encounter Details Date Type Department Care Team (Late st Contact Info) Description 11/13/2003 14:57 EDT Hospital Encounter [facility] - [address] [address] Aleta Hobson MD [address] [place] [address] [address] [place] [phone] Discharge Disposition: Auto Discharge Social History Tobacco [...] [facility] Interventional Radiology Unit [address], [place] [phone] 04/02/2024 15:15 EDT Office Visit [facility] Surgical Oncology - [facility] [address] [place], [place] [phone] Adolfo Carreno MD 111 [facility] Level 2 [place] [phone] 04/05/2024 9:30 EDT Telemedicine [facility] Palliative Care Services [address] [place] [address] [phone] Chichi Woods MD [address] [place] [phone] 04/11/2024 15:00 EDT Telemedicine [facility] Hematology & Oncology - [address] [address] Alisson Carreon MD [address] [place] [address] Level [address] [place] [phone] 04/13/2024 13:30 EDT Appointment [facility] Hematology & Oncology - [address] [address] 04/13/2024 14:00 EDT Appointment [facility] Hematology & Oncology [address] [address] 04/16/2024 10:00 EST Telemedicine [facility] Palliative Care Services [address] [place] [phone] Chichi Woods MD [address] [place] [phone] 04/24/2024 9:00 EST Appointment [facility] Radiology CT Outpatient - [address] [phone] 04/24/2024 11:00 EST Appointment [facility] Breast Imaging - [address] [phone] 04/27/2024 12:00 EST Appointment [facility] Hematology & Oncology - [address] [address] 05/02/2024 15:00 EST Telemedicine [facility] Hematology & Oncology [address] [address] Alisson Carreon MD [address] [place] [address], Level 2 [place] [phone] 05/04/2024 10:15 EST Ancillary Procedure [facility] Cardiology - [address] [place] [address] 05/04/2024 11:30 EST Appointment [facility] Hematology & Oncology [address] [phone] 05/04/2024 12:00 EST Appointment [facility] Hematology & Oncology [address] [phone] 06/12/2024 13:00 EST Appointment [facility] Radiology CT - [address] [phone] documented as of this encounter Procedures Procedure Name Priority Date/Time Associated Diagnosis Comments GORDON MICHELLE Everstring DIGITAL Routine 11/13/2003 15:50 EDT documented in this encounter Results * GORDON MICHELLE UNI DIGITAL (11/13/2003 15:50 EDT) Anatomical Region Laterality Modality Other 11/13/2003 15:5 0 EDT Impressions 02/21/2009 10:24 EDT IMPRESSION: Advise stereotactic core needle biopsy of two groups of calcifications on the right as described. Findings and recommendations were reviewed with the patient and she will be scheduling herself for the procedure. BI-RADS 4. OVERALL ASSESSMENT - SUSPICIOUS /[facility] Addendum # 1 by Yovana Cisneros Md on 11-15-2003 13:35 This examination was interpreted with the aid of computer-assisted detection (CAD) technology. Narrative 02/21/2009 10:24 EDT DX UNI MAMMO6 MO FU RT BR, HX RT BR CALCIFICATIONS ??[PCP STACEY KASPER] CLINICAL HISTORY: 42-year-old woman presents for six month follow-up of calcifications on the right. She had had a mammogram done on April 10, 2003, with additional magnification views done on May 13, 2003. Six month follow-up right mammogram and magnification views were done today. Magnification views were done in the craniocaudal and mediolateral projections. I believe there has been a subtle change in the appearance of the two groups of calcifications in the right breast. The more anterior of the two groups is the most worrisome. Would recommend stereotactic core needle biopsy of both groups of calcifications. The more anterior of the groups is at about the 9 o'clock location and these are labeled group #1 and the more posterior of the groups is labeled group #2. Procedure Note Yovana Cisneros MD - 02/21/2009 DX UNI MAMMO6 MO FU RT BR, HX RT BR CALCIFICATIONS [PCP STACEY KASPER] CLINICAL HISTORY: 42-year-old woman presents for six month follow-up of calcifications on the right. She had had a mammogram done on April 10, 2003, with additional magnification views done on May 13, 2003. Six month follow-up right mammogram and magnification views were done today. Magnification views were done in the craniocaudal and mediolateral projections. I believe there has been a subtle change in the appearance of the two groups of calcifications in the right breast. The more anterior of the two groups is the most worrisome. Would recommend stereotactic core needle biopsy of both groups of calcifications. The more anterior of the groups is at about the 9 o'clock location and these are labeled group #1 and the more posterior of the groups is labeled group #2. IMPRESSION IMPRESSION: Advise stereotactic core needle biopsy of two groups of calcifications on the right as described. Findings and recommendations were reviewed with the patient and she will be scheduling herself for the procedure. BI-RADS 4. OVERALL ASSESSMENT - SUSPICIOUS /[facility] Addendum # 1 by Yovana Cisneros Md on 11-15-2003 13:35 This examination was interpreted with the aid of computer-assisted detection (CAD) technology. Aleta Hobson MD IMG MAMMOGRAPHY O RDERABLES documented in this encounter Visit Diagnoses Not on filedocumented in this encounter
--- OUTSIDE RECORDS SUMMARY | 2024-03-20 15:17 | XMS_ITS | Encounter Summary ---
Author Organization [facility] Address [address] [place] [address] Care Team Providers Care Hazardous Material Specialist Name Role Phone None, Provider Primary Care Provider Maria Fernanda Bender MD Primary Care Provider Unavailab kovacs Encounter Details Date Type Department Care Team (Late st Contact Info) Description 09/17/2003 Results Only [facility] Rheumatology - [place] [facility], [address] [facility], [facility] [address] [place] [address] Silvia Cwoan MD 111 [facility], [facility] 5 [place] [phone] Social History Tobacco Use Types [...] EDT Appointment [facility] Interventional Radiology Unit [address] [place] [phone] 04/02/2024 15:15 EDT Office Visit [facility] Surgical Oncology - [facility] [address] [place], [place] [phone] Adolfo Carreno MD 111 [facility], Level 2 [place] [phone] 04/05/2024 9:30 EDT Telemedicine [facility] Palliative Care Services [address] [place] [phone] Chichi Woods MD [address] [place] [phone] 04/11/2024 15:00 EDT Telemedicine [facility] Hematology & Oncology - [address] [address] Alisson Carreon MD [address] [place] [address], Level [address] [place] [phone] 04/13/2024 13:30 EDT Appointment [facility] Hematology & Oncology - [address] [address] 04/13/2024 14:00 EDT Appointment [facility] Hematology & Oncology - [address] [phone] 04/16/2024 10:00 EST Telemedicine [facility] Palliative Care Services [address] [place] [address] [phone] Chichi Woods MD [address] [place] [phone] 04/24/2024 9:00 EST Appointment [facility] Radiology CT Outpatient - [address] [phone] 04/24/2024 11:00 EST Appointment [facility] Breast Imaging - [address] [address] 04/27/2024 12:00 EST Appointment [facility] Hematology & Oncology - [address] [address] 05/02/2024 15:00 EST Telemedicine [facility] Hematology & Oncology - [address] [address] Alisson Carreon MD [address] [place] [address], [facility], Level [address] [place] [phone] 05/04/2024 10:15 EST Ancillary Procedure [facility] Cardiology - [address] [place] [address] 05/04/2024 11:30 EST Appointment [facility] Hematology & Oncology - [address] [address] 05/04/2024 12:00 EST Appointment [facility] Hematology & Oncology - [address] [address] 06/12/2024 13:00 EST Appointment [facility] Radiology CT - [address] [phone] documented as of this encounter Procedures Procedure Name Priority Date/Time Associated Diagnosis Comments SS-B (LA) ANTIBODY, IGG Routine 09/17/2003 10:18 EDT ZZHN SSA ANTIBODIES BY MANDEEP Routine 09/17/2003 10:18 EDT SM (RIVER) ANTIBODY, IGG Routine 09/17/2003 10:18 EDT PANTOGRAPH MACHINE SET UP OPERATOR ANTIBODY, IGG Routine 09/17/2003 10: 18 EDT DOUBLE STRANDED DNA ANTIBODY, IGG Routine 09/17/2003 10:18 EDT COMPLETE BLOOD COUNT AND DIFFERENTIAL Routine 09/17/2003 10:18 EDT C3 COMPLEMENT Routine 09/17/2003 10:18 EDT C4 COMPLEMENT Routine 09/17/2003 10:18 EDT TSH Routine 09/17/2003 10:18 EDT documented in this encounter Results * PANTOGRAPH MACHINE SET UP OPERATOR ANTIBODY, IGG, SERUM (09/17/2003 10:18 EDT) Pathologist [facility] Auto Ab to U1RNP,S 2.3Unit: U(Note) -- EXPECTED VALUES -- ? (Ref Range) Negative: ??<20.0 ? Borderline: ??20.0-24.9 ? Positive: >= 25.0 ? TEST PERFORMED OR REFERRED BY [facility] [employer] [facility] ? [address] ? [place] [address] ? Grab Jack Worker: ? Lewis Au M.D. ? [facility] 09/17/2003 10:1 8 EDT 09/17/2003 10:31 EDT Silvia Cowan MD IMMUNOLOGY AND SEROL OGY ORDERABLES [facility] [address] [place] [address] * TSH (09/17/2003 10:18 EDT) TSH 1.29 0.35 - 5.50 uIU/ml [facility] 09/17/2003 10:1 8 EDT 09/17/2003 10:31 EDT Silvia Cowan MD CHEMISTRY & BLOOD MIRA S ORDERABLES [facility] [address] [place] [address] * SS-B/LA ANTIBODY, IGG, SERUM (09/17/2003 10:18 EDT) Autoantibodies to SS B/La <1.0Unit: U(Note) -- EXPECTED VALUES -- ? (Ref Range) Negative: ??<20.0 ? Borderline: ??20.0-24.9 ? Positive: >= 25.0 ? TEST PERFORMED OR REFERRED BY [facility] ? [address] ? [place] [address] ? Grab Jack Worker: ? Lewis Au M.D. ? [facility] 09/17/2003 10:1 8 EDT 09/17/2003 10:31 EDT Silvia Cowan MD IMMUNOLOGY AND EFRA ENG ORDERABLES [facility] [address] [place] [address] * SS-A/RO ANTIBODY, IGG, SERUM (09/17/2003 10:18 EDT) Autoantibodies to SS A/Ro 1.8Unit: U(Note) -- EXPECTED VALUES -- ? (Ref Range) Negative: ??<20.0 ? Borderline: ??20.0-24.9 ? Positive: >= 25.0 ? TEST PERFORMED OR REFERRED BY [facility] ? [address] ? [place] [address] ? Grab Jack Worker: ? Lewis Au M.D. ? [facility] 09/17/2003 10:1 8 EDT 09/17/2003 10:31 EDT Silvia Cowan MD IMMUNOLOGY AND SEREZEQUIEL ENG ORDERABLES [facility] [address] [place] [address] * SM ANTIBODIES, IGG, SERUM (09/17/2003 10:18 EDT) Autoantibodies to Sm <1.0Unit: U(Note) -- EXPECTED VALUES -- ? (Ref Range) Negative: ??<20.0 ? Borderline: ??20.0-24.9 ? Positive: >= 25.0 ? TEST PERFORMED OR REFERRED BY [facility] ? [address] ? [place] [address] ? Grab Jack Worker: ? Lewis A. Roe, M.D. ? [facility] 09/17/2003 10:1 8 EDT 09/17/2003 10:31 EDT Silvia Cowan MD IMMUNOLOGY AND SEROL OGY ORDERABLES Performing Organization Address [facility] de Phone Number [facility] [address] [place] [address] * ANTI DNA (DOUBLE STRAND) (09/17/2003 10:18 EDT) Pathologist [facility] Anti DNA (DS) Neg NEG Dils [facility] 09/17/2003 10:1 8 EDT 09/17/2003 10:31 EDT Silvia Cowan MD IMMUNOLOGY AND SEROL OGY ORDERABLES Performing Organization Address [facility] de Phone Number [facility] [address] [place] [address] * (ABNORMAL) HEMAGRAM AND DIFFERENTIAL (09/17/2003 10:18 EDT) [facility] WBC 8.32 4.0 - 12.4 K/cmm [facility] RBC 4.68 3.86 - 5.04 M/cmm [facility] Hemoglobin 15.2 11.6 - 15.2 gm/dl [facility] HCT 44.7(H) 34.9 - 44.4 % [facility] MCV 95 81 - 98 fl [facility] MCH 32.5 26.7 - 33.3 pg [facility] MCHC 34.1 32.1 - 35.9 gm/dl [facility] PLT 246 141 - 320 K/cmm [facility] RDW-CV 12.1 11.7 - 14.6 % [facility] % Neutrophils 66.2 45.5 - 79.7 % [facility] % Lymphocytes 25.2 15.0 - 46.8 % [facility] % Monocytes 7.8 1.8 - 12.0 % [facility] % Eosinophils 0.5(L) 0.6 - 6.9 % [facility] % Basophils 0.3 0.2 - 1.4 % [facility] ABS Neutrophils 5.51 2.20 - 8.85 K/cmm [facility] ABS Lymphs 2.10 1.09 - 3.30 K/cmm [facility] ABS Monocytes 0.65 0.1 - 0.8 K/cmm [facility] ABS Eosinophils 0.04 0.03 - 0.61 K/cmm [facility] ABS Basophils 0.02 0.01 - 0.11 K/cmm [facility] Type of Diff: Automated [facility] 09/17/2003 10:1 8 EDT 09/17/2003 10:31 EDT Silvia Cowan MD PACKAGES & DNA PROBE ORDERABLES Performing Organization Address [facility] de Phone Number [facility] [address] [place] [address] * C4 COMPLEMENT (09/17/2003 10:18 EDT) C4 Complement 19 16 - 38 mg/dl [facility] 09/17/2003 10:1 8 EDT 09/17/2003 10:31 EDT iSlvia Cowan MD CHEMISTRY & BLOOD GA S ORDERABLES Performing Organization Address [facility] Co de Phone Number [facility] [address] [place] [address] * C3 COMPLEMENT (09/17/2003 10:18 EDT) C3 Complement 138 79 - 152 mg/dl [facility] 09/17/2003 10:1 8 EDT 09/17/2003 10:31 EDT Silvia Cowan MD CHEMISTRY & BLOOD GA S ORDERABLES Performing Organization Address [facility] Co de Phone Number [facility] [address] [place] [address] documented in this encounter Visit Diagnoses Not on filedocumented in this encounter Care Teams Hazardous Material Specialist Relationship Specialty Start Date End Date None, Provider PCP - General 08/21/09 01/05/11 Maria Fernanda Red MD PCP - General 12/17/08 08/20/09 documented as of this encounter
--- OUTSIDE RECORDS SUMMARY | 2024-03-20 15:17 | XMS_ITS | Encounter Summary ---
Author Organization [facility] Address [address] [place] [address] Care Team Providers Care Chair Inspector Name Role Phone Unavailable Primary Care Provider Unavailabl e Encounter Details Date Type Department Care Team (Late st Contact Info) Description 02/25/2003 19:07 EDT Hospital [facility] [address] [place] [address] Nandini Yuen MD [address] [place] [address] [address] [place] [phone] Discharge Disposition: Auto Discharge Social History Tobacco [...] Appointment [facility] Interventional Radiology Unit [address], [place] [phone] 04/02/2024 15:15 EDT [facility] Surgical [facility]cology - [facility] [address], [place] 900321 Adolfo Carreno MD 111 [facility], [facility], Level 2 [place] [phone] 04/05/2024 9:30 EDT Telemedicine [facility] Palliative Care Services [address] [place] [address] [phone] Chichi Woods MD [address] [place] [address] [phone] 04/11/2024 15:00 EDT Telemedicine [facility] Hematology & Oncology - [address] [address] Alisson Carreon MD [address] [place] [address] Level 2 [place] [phone] 04/13/2024 13:30 EDT Appointment [facility] Hematology & Oncology - [address] [address] 04/13/2024 14:00 EDT Appointment [facility] Hematology & Oncology [address] [address] 04/16/2024 10:00 EST Telemedicine [facility] Palliative Care Services [address] [place] [address] 589181 Chichi Woods MD [address] [place] [phone] 04/24/2024 9:00 EST Appointment [facility] Radiology CT Outpatient - [address] [id number] 04/24/2024 11:00 EST Appointment [facility] Breast Imaging - [address] [phone] 04/27/2024 12:00 EST Appointment [facility] Hematology & Oncology - [address] [address] 05/02/2024 15:00 EST Telemedicine [facility] Hematology & Oncology [address] [address] Alisson Carreon MD [address] [place] [address], Level 2 [place] [phone] 05/04/2024 10:15 EST Ancillary Procedure [facility] Cardiology - [address] [place] [address] 05/04/2024 11:30 EST Appointment [facility] Hematology & Oncology [address] [address] 05/04/2024 12:00 EST Appointment [facility] Hematology & Oncology [address] [phone] 06/12/2024 13:00 EST Appointment [facility] Radiology CT - [address] [phone] documented as of this encounter Procedures Procedure Name Priority Date/Time Associated Diagnosis Comments CYTOPATHOLOGY Routine 02/25/2003 0:00 EDT documented in this encounter Results * CYTOPATHOLOGY (02/25/2003 0:00 EDT) Pathology Report: CYTOPATHOLOGY REPORT Reports generated via electronic interface contain original data; however they are lacking the format of the original report. Caution should be taken when reading/interpreti ng unformatted reports. Name: ? PARDEEP SMITH ? Accession #: ? [id number] : ? 1960 (Age: 42) ??F ?Collect Date: ? 02/25/2003 Location: ? [facility] ? Receive Date: ? 02/26/2003 Provider: ?NANDINI YUEN MD Copy to: ? Specimen/Source: ?ThinPrep Pap Test, Cervix/Endocervix Last Menstrual Period: ? Menstrual/Pregnanc y Status: ? Menopausal Hormonal/Contracep tive Status: ? Hormone Replacement Therapy Other: ? HPVA - HPV testing requested if ASC-US on the current ThinPrep Pap test. ? SPECIMEN ADEQUACY ? Satisfactory for Evaluation - transformation zone component present GENERAL CATEGORIZATION ? Negative for Intraepithelial Lesion or Malignancy ? Document reviewed and electronically signed by: ? YOSHI Norris(ASCP) ? Report Date: ??02/28/2003 13:53 End of Report [facility] 02/25/2003 02/26/2003 Nandini Yuen MD PATHOLOGY ORDERAB LES RENÉE CALDERA [address] [place] [address] documented in this encounter Visit Diagnoses Not on filedocumented in this encounter
--- OUTSIDE RECORDS SUMMARY | 2024-03-20 15:17 | XMS_ITS | Encounter Summary ---
Author Organization [facility] Address [address] [place] [address] Care Team Providers Care Expenditure Requisition Clerk Name Role Phone None, Provider Primary Care Provider Maria Fernanda Bender MD Primary Care Provider UnavailLinda Acosta MD Primary Care Provider [phone] Encounter Details Date Type Department Care Team (Late st Contact Info) Description 02/04/2004 Before PRISM Converted Visit (Maple) [facility] - Maple conversion [address] [place] [address] Pavan Batres MD Social History Tobacco Use [...] [facility] Interventional Radiology Unit [address] [place] [address] 04/02/2024 15:15 EDT Office Visit [facility] Surgical Oncology - [facility] [address] [place], [place] 446371 Adolfo Carreno MD 111 [facility], Level 2 [place] [phone] 04/05/2024 9:30 EDT Telemedicine [facility] Palliative Care Services [address] [place] [address] [phone] Chichi Woods MD [address] [place] [phone] 04/11/2024 15:00 EDT Telemedicine [facility] Hematology & Oncology - [address] 570021 Alisson Carreon MD [address] [place] [address], Level [address] [place] [phone] 04/13/2024 13:30 EDT Appointment [facility] Hematology & Oncology - [address] 716981 04/13/2024 14:00 EDT Appointment [facility] Hematology & Oncology [address] 014101 04/16/2024 10:00 EST Telemedicine [facility] Palliative Care Services [address] [place] [address] [phone] Chichi Woods MD [address] [place] [address] [phone] 04/24/2024 9:00 EST Appointment [facility] Radiology CT Outpatient - [address] 061121 04/24/2024 11:00 EST Appointment [facility] Breast Imaging - [address] 106261 04/27/2024 12:00 EST Appointment [facility] Hematology & Oncology - [address] [phone] 05/02/2024 15:00 EST Telemedicine [facility] Hematology & Oncology [address] 277221 Alisson Carreon MD [address] [place] [address], Level [address] [place] [phone] 05/04/2024 10:15 EST Ancillary Procedure [facility] Cardiology - [address] [place] [address] 05/04/2024 11:30 EST Appointment [facility] Hematology & Oncology [address] 117291 05/04/2024 12:00 EST Appointment [facility] Hematology & Oncology [address] 978651 06/12/2024 13:00 EST Appointment [facility] Radiology CT - [address] [phone] documented as of this encounter Visit Diagnoses Not on filedocumented in this encounter Care Teams Expenditure Requisition Clerk Relationship Specialty Start Date End Date None, Provider PCP - General 08/21/09 01/05/11 Maria Fernanda Red MD PCP - General 12/17/08 08/20/09 Linda Blancas MD [facility] [address] [place] [address] PCP - General 01/06/11 documented as of this encounter
--- OUTSIDE RECORDS SUMMARY | 2024-03-20 15:17 | XMS_ITS | Encounter Summary ---
Author Organization [facility] Address [address] [place] [address] Care Team Providers Care Cigarette Packing Machine Operator Name Role Phone None, Provider Primary Care Provider Maria Fernanda Bender MD Primary Care Provider UnavailLinda Acosta MD Primary Care Provider [phone] Encounter Details Date Type Department Care Team (Late st Contact Info) Description 02/02/2004 Before PRISM Converted Visit (Maple) [facility] - Maple conversion [address] [place] [address] Abby Kearney MD [address] [place] [address] [place] [phone] Social History Tobacco Use Types Packs/Day Years [...] [facility] Interventional Radiology Unit [address] [place] [address] 04/02/2024 15:15 EDT Office Visit [facility] Surgical Oncology - [facility] [address] [place] [address] Adolfo Carreno MD 111 [facility], Level [address] [place] [phone] 04/05/2024 9:30 EDT Telemedicine [facility] Palliative Care Services [address] [place] [address] Chichi Woods MD [address] [place] [address] [phone] 04/11/2024 15:00 EDT Telemedicine [facility] Hematology & Oncology - [address] [phone] Alisson Carreon MD [address] [place] [address] [address] [place] [phone] 04/13/2024 13:30 EDT Appointment [facility] Hematology & Oncology - [address] [phone] 04/13/2024 14:00 EDT Appointment [facility] Hematology & Oncology [address] [phone] 04/16/2024 10:00 EST Telemedicine [facility] Palliative Care Services [address] [place] [address] Chichi Woods MD [address] [place] [address] [phone] 04/24/2024 9:00 EST Appointment [facility] Radiology CT Outpatient - [address] [phone] 04/24/2024 11:00 EST Appointment [facility] Breast Imaging - [address] 006271 04/27/2024 12:00 EST Appointment [facility] Hematology & Oncology - [address] [address] 05/02/2024 15:00 EST Telemedicine [facility] Hematology & Oncology [address] [address] Alisson Carreon MD [address] [place] [address], [facility], Level [address] [place] [phone] 05/04/2024 10:15 EST Ancillary Procedure [facility] Cardiology - [address] [place] [address] 05/04/2024 11:30 EST Appointment [facility] Hematology & Oncology [address] [address] 05/04/2024 12:00 EST Appointment [facility] Hematology & Oncology [address] [address] 06/12/2024 13:00 EST Appointment [facility] Radiology CT - [address] 819041 documented as of this encounter Visit Diagnoses Not on filedocumented in this encounter Care Teams Cigarette Packing Machine Operator Relationship Specialty Start Date End Date None, Provider PCP - General 08/21/09 01/05/11 Maria Fernanda Red MD PCP - General 12/17/08 08/20/09 Linda Blancas MD [facility] [address] [place] [address] PCP - General 01/06/11 documented as of this encounter
--- OUTSIDE RECORDS SUMMARY | 2024-03-20 15:17 | XMS_ITS | Encounter Summary ---
Author Organization [facility] Address [address] [place] [address] Care Team Providers Care Order Dispatcher Name Role Phone Unavailable Primary Care Provider Unavailabl e Encounter Details Date Type Department Care Team (Late st Contact Info) Description 06/16/2004 6:45 EST - 06/16/2004 11:59 EST Hospital Encounter [facility] - Other [address] [place] [address] Aleta Hobson MD [address] [place] [address] [address] [place] [phone] Discharge Disposition: Auto Discharge Social History Tobacco [...] [facility] [address] [place] [address] 04/02/2024 15:15 EDT Office Visit [facility] Surgical Oncology - [facility] [address] [place] [address] Adolfo Carreno MD 111 [facility], Level 2 [place] [phone] 04/05/2024 9:30 EDT Telemedicine [facility] Palliative Care Services [address] [place] [address] [phone] Chichi Woods MD [address] [place] [address] [phone] 04/11/2024 15:00 EDT Telemedicine [facility] Hematology & Oncology - [address] 428841 Alisson Carreon MD [address] [place] [address], Level [address] [place] [phone] 04/13/2024 13:30 EDT Appointment [facility] Hematology & Oncology - [address] 834201 04/13/2024 14:00 EDT Appointment [facility] Hematology & Oncology [address] 320961 04/16/2024 10:00 EST Telemedicine [facility] Palliative Care Services [address] [place] [address] [phone] Chichi Woods MD [address] [place] [address] [phone] 04/24/2024 9:00 EST Appointment [facility] Radiology CT Outpatient - [address] 063881 04/24/2024 11:00 EST Appointment [facility] Breast Imaging - [address] 107961 04/27/2024 12:00 EST Appointment [facility] Hematology & Oncology [address] [address] 05/02/2024 15:00 EST Telemedicine [facility] Hematology & Oncology [address] [address] Alisson Carreon MD [address] [place] [address], [facility], Level [address] [place] [phone] 05/04/2024 10:15 EST Ancillary Procedure [facility] Cardiology - [address] [place] [address] 05/04/2024 11:30 EST Appointment [facility] Hematology & Oncology [address] [address] 05/04/2024 12:00 EST Appointment [facility] Hematology & Oncology [address] 456791 06/12/2024 13:00 EST Appointment [facility] Radiology CT - [address] 053491 documented as of this encounter Procedures Procedure Name Priority Date/Time Associated Diagnosis Comments GORDON PUENTE [employer] [place] Routine 06/16/2004 8:51 EST documented in this encounter Results * GORDON KWAME [employer] LessThan[employer] DIGITAL (06/16/2004 8:51 EST) Anatomical Region Laterality Modality Other 06/16/2004 8:51 EST Narrative 02/14/2009 14:42 EDT REPEAT NO CHARGE/LT ?[facility] VIEW WITH SOME COMPRESSION - BLURRY ANTONETTE E DAY RESULTS TO PT PLEASE ?? PT HAS ??IMPLANT Procedure Note Betzaida Tracy MD - 02/14/2009 REPEAT NO CHARGE/LT [facility] VIEW WITH SOME COMPRESSION - BLURRY ANTONETTE E DAY RESULTS TO PT PLEASE PT HAS IMPLANT Aleta Hobson MD IMG MAMMOGRAPHY O RDERABLES documented in this encounter Visit Diagnoses Not on filedocumented in this encounter
--- OUTSIDE RECORDS SUMMARY | 2024-03-20 15:17 | XMS_ITS | Encounter Summary ---
Author Organization [facility] Address [address] [place] [address] Care Team Providers Care Phys Therapist Name Role Phone Unavailable Primary Care Provider Unavailabl e Encounter Details Date Type Department Care Team (Late st Contact Info) Description 07/11/2003 11:51 EST Hospital Encounter [facility] - Other [address] [place] [address] Maria Fernanda Red MD Social History Tobacco Use Types Packs/Day Years Used Date Smoking Tobacco: Never Passive Smoke Exposure: Never Smokeless Tobacco: Never Alcohol Use Standard Drinks/Week Comments Not Currently 1 (1 standard drink = 0.6 oz pur e alcohol) [facility] Utilities Answer Date Recorded In the [...] Appointment [facility] Interventional Radiology Unit [address] [place] [address] 04/02/2024 15:15 EDT Office Visit [facility] Surgical Oncology - [address] [phone] Adolfo Carreno MD [address] [facility], Level 2 [place] [phone] 04/05/2024 9:30 EDT Telemedicine [facility] - [facility] Palliative Care Services [address] [place], [place] [phone] Chichi Woods MD 111 [facility], [address] [place] [phone] 04/11/2024 15:00 EDT Telemedicine [facility] Hematology & Oncology - [address] 151551 Alisson Carreon MD [address] [place] [address], [facility] 2 [place] [phone] 04/13/2024 13:30 EDT Appointment [facility] Hematology & Oncology - [address] [phone] 04/13/2024 14:00 EDT Appointment [facility] Hematology & Oncology [address] 563611 04/16/2024 10:00 EST Telemedicine [facility] - [facility] Palliative Care Services [address] [place] [address] Chichi Woods MD [address] [place] [address] [phone] 04/24/2024 9:00 EST Appointment [facility] Radiology CT Outpatient - [address] 756851 04/24/2024 11:00 EST Appointment [facility] Breast Imaging - [address] 416141 04/27/2024 12:00 EST Appointment [facility] Hematology & Oncology - [address] [phone] 05/02/2024 15:00 EST Telemedicine [facility] Hematology & Oncology - [address] 550271 Alisson Carreon MD [address] [place] [address], [facility] 2 [place] [phone] 05/04/2024 10:15 EST Ancillary Procedure [facility] Cardiology - [address] [place] [address] 05/04/2024 11:30 EST Appointment [facility] Hematology & Oncology [facility] [address] [place] [address] 05/04/2024 12:00 EST Appointment [facility] Hematology & Oncology [address] [address] 06/12/2024 13:00 EST Appointment [facility] Radiology CT - [facility] [address] [place] [address] documented as of this encounter Procedures Procedure Name Priority Date/Time Associated Diagnosis Comments HOLD Routine 07/19/2003 20:19 EST HEPATITIS C AB W REFLEX TO HCV RNA BY PCR Routine 07/19/2003 20:19 EST HEPATITIS B SURFACE ANTIGEN Routine 07/19/2003 20:19 EST GLUCOSE, SERUM Routine 07/19/2003 20:19 EST documented in this encounter Results * GLUCOSE, SERUM (07/19/2003 20:19 EST) Glucose, Serum 72 70 - 110 mg/dl [facility] 07/19/2003 20:1 9 EST 07/19/2003 20:19 EST Maria Fernanda Red MD CHEMISTRY & BLOOD GA S ORDERABLES Performing Organization Address [facility] de Phone Number [facility] [address] [place] [address] * HOLD (07/19/2003 20:19 EST) Hold EDTA for hematology will be discarded after 48 hours, differential not available after 12 hours. [facility] 07/19/2003 20:1 9 EST 07/19/2003 20:19 EST Maria Fernanda Red MD CHEMISTRY & BLOOD GA S ORDERABLES Performing Organization Address [facility] Co de Phone Number [facility] [address] [place] [address] * HEPATITIS C ANTIBODY (07/19/2003 20:19 EST) Hepatitis C Ab Neg [facility] 07/19/2003 20:1 9 EST 07/19/2003 20:19 EST Maria Fernanda Red MD CHEMISTRY & BLOOD GA S ORDERABLES Performing Organization Address [facility] Co de Phone Number [facility] [address] [place] [address] * HEPATITIS B SURFACE ANTIGEN (07/19/2003 20:19 EST) Hepatitis B Surface Ag Neg [facility] 07/19/2003 20:1 9 EST 07/19/2003 20:19 EST Maria Fernanda Red MD CHEMISTRY & BLOOD GA S ORDERABLES Performing Organization Address [facility] Co de Phone Number [facility] [address] [place] [address] documented in this encounter Visit Diagnoses Not on filedocumented in this encounter Additional Health Concerns Infection Onset Date Last Indicated Resolved Time R/O COVID-19 12/12/2023 12/12/2023 12/12/2023 15:3 5 EDT R/O COVID-19 01/08/2024 01/08/2024 01/08/2024 18:2 6 EDT R/O COVID-19 01/16/2024 01/16/2024 01/16/2024 17:5 0 EDT documented as of this encounter
--- OUTSIDE RECORDS SUMMARY | 2024-03-20 15:17 | XMS_ITS | Encounter Summary ---
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 Ferryboat Operator Name Role Phone Unavailable Primary Care Provider Unavailabl e Encounter Details Date Type Department Care Team (Latest Contact Info) Description 08/20/2002 8:34 EST - 08/20/2002 11:59 EST Hospital Encounter [facility] - Other [address] [place] [address] Maria Fernanda Red MD Unknown, Provider, Discharge Disposition: Auto Discharge Social History Tobacco [...] [facility] Interventional Radiology Unit [address] [place] [address] 04/02/2024 15:15 EDT Office Visit [facility] [address] [place] [address] Adolfo Carreno MD 111 [facility], [facility], Level 2 [place] [phone] 04/05/2024 9:30 EDT Telemedicine [facility] - [facility] Palliative Care Services [address] [place] [address] [phone] Chichi Woods MD [address] [place] [phone] 04/11/2024 15:00 EDT Telemedicine [facility] Hematology & Oncology - [address] 909171 Alisson Carreon MD [address] [place] [address] Level 2 [place] [phone] 04/13/2024 13:30 EDT Appointment [facility] Hematology & Oncology - [address] [address] 04/13/2024 14:00 EDT Appointment [facility] Hematology & Oncology [address] [address] 04/16/2024 10:00 EST Telemedicine [facility] Palliative Care Services [address] [place] [address] 460231 Chichi Woods MD [address] [place] [address] [phone] 04/24/2024 9:00 EST Appointment [facility] Radiology CT Outpatient - [address] 674221 04/24/2024 11:00 EST Appointment [facility] Breast Imaging - [address] [address] 04/27/2024 12:00 EST Appointment [facility] Hematology & Oncology - [address] [phone] 05/02/2024 15:00 EST Telemedicine [facility] Hematology & Oncology - [address] [phone] Alisson Carreon MD [address] [place] [address], Level 2 [place] [phone] 05/04/2024 10:15 EST Ancillary Procedure [facility] Cardiology - [address] [place] [address] 05/04/2024 11:30 EST Appointment [facility] Hematology & Oncology - [address] 747211 05/04/2024 12:00 EST Appointment [facility] Hematology & Oncology - [address] [phone] 06/12/2024 13:00 EST Appointment [facility] Radiology CT - [address] [address] documented as of this encounter Visit Diagnoses Not on filedocumented in this encounter
--- OUTSIDE RECORDS SUMMARY | 2024-03-20 15:17 | XMS_ITS | Encounter Summary ---
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 Name Role Phone Unavailable Primary Care Provider Unavailabl e Encounter Details Date Type Department Care Team (Late st Contact Info) Description 05/13/2003 6:34 EST - 05/13/2003 11:59 EST Hospital Encounter [facility] - Other [address] [place] [address] Aleta Hobson MD [address] [place] [address] [address] [place] [phone] Discharge Disposition: Auto Discharge Social History Tobacco [...] Appointment [facility] Interventional Radiology Unit [address] [place] [address] 04/02/2024 15:15 EDT Office Visit [facility] Surgical Oncology - [facility] [address] [place] [address] Adolfo Carreno MD 111 [facility], Level 2 [place] [phone] 04/05/2024 9:30 EDT Telemedicine [facility] Palliative Care Services [address] [place] [address] 301231 Chichi Woods MD [address] [place] [phone] 04/11/2024 15:00 EDT Telemedicine [facility] - [address] [phone] Alisson Carreon MD [address] [place] [address], Level 2 [place] [phone] 04/13/2024 13:30 EDT Appointment [facility] - [address] 052131 04/13/2024 14:00 EDT Appointment [facility] [address] 745391 04/16/2024 10:00 EST Telemedicine [facility] Palliative Care Services [address] [place] [address] 447141 Chichi Woods MD [address] [place] [address] [phone] 04/24/2024 9:00 EST Appointment [facility] Radiology CT Outpatient - [address] [phone] 04/24/2024 11:00 EST Appointment [facility] Breast Imaging - [address] [phone] 04/27/2024 12:00 EST Appointment [facility] - [address] [address] 05/02/2024 15:00 EST Telemedicine [facility] [address] [address] Alisson Carreon MD [address] [place] [address], Level 2 [place] [phone] 05/04/2024 10:15 EST Ancillary Procedure [facility] Cardiology - [address] [place] [address] 05/04/2024 11:30 EST Appointment [facility] [address] [address] 05/04/2024 12:00 EST Appointment [facility] [address] [phone] 06/12/2024 13:00 EST Appointment [facility] Radiology CT - [address] [phone] documented as of this encounter Procedures Procedure Name Priority Date/Time Associated Diagnosis Comments GORDON MICHELLE DIGITAL UNILATERAL ADDED VIEWS Routine 05/13/2003 10:47 EST documented in this encounter Results * GORDON MICHELLE DIGITAL UNILATERAL ADDED VIEWS (05/13/2003 10:47 EST) Anatomical Region Laterality Modality Other 05/13/2003 10:4 7 EST Impressions 02/10/2009 4:01 EDT IMPRESSION: RIGHT BREAST - CATEGORY 3 Two groups of calcifications. Findings are probably benign. As this is a baseline exam, unilateral short interval follow-up standard and spot magnified images are recommended in 6 months to confirm stability. If the calcifications increase or if their morphology becomes more heterogeneous, biopsy should then be considered. Results and recommendations for follow-up were discussed with the patient by the technologist at the time of the exam. OVERALL ASSESSMENT - PROBABLY BENIGN END OF IMPRESSION Narrative 02/10/2009 4:01 EDT RIGHT AV ASYM DENS/ CALCS Comparison is made to films from 04-10-2003. Right Breast Findings (digital additional projection): The breast is heterogeneously dense. This may lower the sensitivity of mammography. Two groups of (largely) punctate and (a few) heterogeneous calcifications are present. The group labelled #1 is located in the anterior breast at about 9 oclock, near the nipple. The second group labelled #2 is located iinte posterior breast, LOQ. The morphology of both groups is similar. There is no associated mass or architectural distortion. Calcifications may be associated with small fibroadenomata. DCIS cannot be completely excluded however. The previously noted densities overlying the pectoralis muscle on the MLO appear to compress out c/w normal tissue. Procedure Note Tylor Williamson MD - 02/10/2009 RIGHT AV ASYM DENS/ CALCS Comparison is made to films from 04-10-2003. Right Breast Findings (digital additional projection): The breast is heterogeneously dense. This may lower the sensitivity of mammography. Two groups of (largely) punctate and (a few) heterogeneous calcifications are present. The group labelled #1 is located in the anterior breast at about 9 oclock, near the nipple. The second group labelled #2 is located iinte posterior breast, LOQ. The morphology of both groups is similar. There is no associated mass or architectural distortion. Calcifications may be associated with small fibroadenomata. DCIS cannot be completely excluded however. The previously noted densities overlying the pectoralis muscle on the MLO appear to compress out c/w normal tissue. IMPRESSION IMPRESSION: RIGHT BREAST - CATEGORY 3 Two groups of calcifications. Findings are probably benign. As this is a baseline exam, unilateral short interval follow-up standard and spot magnified images are recommended in 6 months to confirm stability. If the calcifications increase or if their morphology becomes more heterogeneous, biopsy should then be considered. Results and recommendations for follow-up were discussed with the patient by the technologist at the time of the exam. OVERALL ASSESSMENT - PROBABLY BENIGN END OF IMPRESSION Maria Fernanda Red MD IMG MAMMOGRAPHY ORDE KARLA documented in this encounter Visit Diagnoses Not on filedocumented in this encounter
--- OUTSIDE RECORDS SUMMARY | 2024-03-20 15:17 | XMS_ITS | Encounter Summary ---
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 Name Role Phone Unavailable Primary Care Provider Unavailabl e Encounter Details Date Type Department Care Team (Late st Contact Info) Description 09/17/2003 10:10 EDT Hospital Encounter [facility] - Other [address] [place] [address] Silvia Cowan MD 111 [facility], Level 5 [place] [phone] Social History Tobacco Use Types Packs/Day Years Used Date Smoking Tobacco: Never Passive Smoke Exposure: Never Smokeless Tobacco: Never Alcohol Use Standard Drinks/Week Comments Not Currently 1 (1 standard drink = 0.6 oz pur e alcohol) [facility] Utilities Answer Date Recorded In the past 12 months has e [employer], gas, oil, or water [employer] threatened to shut off services in your [...] EDT Appointment [facility] Interventional Radiology Unit [address] [place] [address] 04/02/2024 15:15 EDT Office Visit [facility] Surgical Oncology - [facility] [address] [place], [place] [phone] Adolfo Carreno MD [address] [place], [place] [address]ili, Level 2 [place] [phone] 04/05/2024 9:30 EDT Telemedicine [facility] - [facility] Palliative Care Services [address] [place] [address] [phone] Chichi Woods MD [address] [address] [place] [phone] 04/11/2024 15:00 EDT Telemedicine [facility] Hematology & Oncology - [address] [phone] Alisson Carreon MD [address] [place] [address] 2 [place] [phone] 04/13/2024 13:30 EDT Appointment [facility] Hematology & Oncology - [address] [phone] 04/13/2024 14:00 EDT Appointment [facility] Hematology & Oncology - [address] 154051 04/16/2024 10:00 EST Telemedicine [facility] - [facility] Palliative Care Services [address] [place] [address] [phone] Chichi Woods MD [address] [place] [address] [address] [place] [phone] 04/24/2024 9:00 EST Appointment [facility] Radiology CT Outpatient - [address] 544241 04/24/2024 11:00 EST Appointment [facility] Breast Imaging - [address] [phone] 04/27/2024 12:00 EST Appointment [facility] Hematology & Oncology - [address] 779321 05/02/2024 15:00 EST Telemedicine [facility] Hematology & Oncology - [address] [phone] Alisson Carreon MD [address] [place] [address], Level 2 [place] [phone] 05/04/2024 10:15 EST Ancillary Procedure [facility] Cardiology - [address] [place] [address] 05/04/2024 11:30 EST Appointment [facility] Hematology & Oncology [address] 610171 05/04/2024 12:00 EST Appointment [facility] Hematology & Oncology [address] 704201 06/12/2024 13:00 EST Appointment [facility] Radiology CT [address] [phone] documented as of this encounter Visit Diagnoses Not on filedocumented in this encounter Additional Health Concerns Infection Onset Date Last Indicated Resolved Time R/O COVID-19 12/12/2023 12/12/2023 12/12/2023 15:3 5 EDT R/O COVID-19 01/08/2024 01/08/2024 01/08/2024 18:2 6 EDT R/O COVID-19 01/16/2024 01/16/2024 01/16/2024 17:5 0 EDT documented as of this encounter
--- OUTSIDE RECORDS SUMMARY | 2024-03-20 15:17 | XMS_ITS | Encounter Summary ---
Author Organization Health system Address [address] [place] [address] Care Team Providers Care Fish Liver Sorter Name Role Phone None, Provider Primary Care Provider Anenliese Bender MD Primary Care Provider Unavailab fermín Encounter Details Date Type Department Care Team (Late st Contact Info) Description 01/30/2004 Results Only [facility] Gastrointestinal Cancer Program - [address] [address] Carri Irizarry MD [address] [place] [address] [place] [phone] Social History Tobacco Use Types Packs/Day Years [...] Appointment [facility] Interventional Radiology Unit [address] [place] [address] [phone] 04/02/2024 15:15 EDT Office Visit [facility] Surgical Oncology - [address] 106781 Adolfo Carreno MD 111 [facility], Level 2 [place] [phone] 04/05/2024 9:30 EDT Telemedicine [facility] Palliative Care Services [address] [place] [address] [phone] Chichi Woods MD [address] [place] [phone] 04/11/2024 15:00 EDT Telemedicine [facility] Hematology & Oncology - [address] [phone] Alisson Carreon MD [address] [place] [address] 2 [place] [phone] 04/13/2024 13:30 EDT Appointment [facility] Hematology & Oncology - [address] [address] 04/13/2024 14:00 EDT Appointment [facility] Hematology & Oncology - [address] [address] 04/16/2024 10:00 EST Telemedicine [facility] Palliative Care Services [address] [place] [address] [phone] Chichi Woods MD [address] [place] [phone] 04/24/2024 9:00 EST Appointment [facility] Radiology CT Outpatient - [address] [id number] 04/24/2024 11:00 EST Appointment [facility] Breast Imaging - [address] [address] 04/27/2024 12:00 EST Appointment [facility] Hematology & Oncology - [address] [id number] 05/02/2024 15:00 EST Telemedicine [facility] Hematology & Oncology [address] 251761 Alisson Carreon MD 111 [facility], Level 2 [place] [phone] 05/04/2024 10:15 EST Ancillary Procedure [facility] Cardiology - [address] [place] [address] 05/04/2024 11:30 EST Appointment [facility] Hematology & Oncology [address] [phone] 05/04/2024 12:00 EST Appointment [facility] Hematology & Oncology [address] [phone] 06/12/2024 13:00 EST Appointment [facility] Radiology CT - [address] 997141 documented as of this encounter Procedures Procedure Name Priority Date/Time Associated Diagnosis Comments SURGICAL PATHOLOGY Routine 01/30/2004 0:00 EDT documented in this encounter Results * SURGICAL PATHOLOGY (01/30/2004 0:00 EDT) Pathology Report: SURGICAL PATHOLOGY REPORT Reports generated via electronic interface contain original data; however they are lacking the format of the original report. Caution should be taken when reading/interpreting unformatted reports. Name: ? SMITH SUNSHINE A ? Accession #: ? [id number] ? : ? 1960 (Age: 43) ??F ? Collect Date: ? 01/30/2004 ? Location: ? B006 ? Receive Date: ? 01/30/2004 ? Provider: CARRI IRIZARRY MD Copy to: ANNELIESE GUILLAUME MD ? Final Pathologic Diagnosis: ? Breast, right, simple mastectomy: 1. ?Ductal carcinoma in situ (DCIS), cribriform, solid, and micropapillary patterns, with focal necrosis, nuclear grade II. ? - Area of involvement by DCIS is approximately 2.7 cm. ??See comment. - Surgical resection margins positive; DCIS present: ? - At anterior margin (A4). ??See comment. ? - 8.0 mm from posterior margin (A6). 2. ?Fibrocystic changes including: ? - Focal atypical ductal hyperplasia (A8), microcyst formation, apocrine metaplasia, and ?interlobular fibrosis. 3. ?Microcalcification s associated with DCIS. 4. ?Skin and nipple negative for malignancy. 5. ?Prior biopsy sites (2). Comment: ? The DCIS forms a mass lesion measuring 2.7 cm in an area surrounding the prior biopsies in the lower outer quadrant. ??In situ carcinoma is present at the cauterized anterior margin of the lower outer quadrant at 0.5 cm from the inferior edge of the specimen (A4). ??Estrogen and progesterone receptor stains were previously performed on the needle core biopsies ([id number]) and showed ER positive (90%) and OK positive (90%). ??Laundry Tech sections of this case were reviewed at the intradepartmental consultation conference. ??Deeper sections of (A4), (A6), (A8), and (A12) have been examined. ??(Dr. Atkins)/[facility] Document reviewed and electronically signed by: DOUG ATKINS MD Report ??Date: 02/05/2004 14:34 By the signature above, the attending physician certifies that he/she has personally conducted a gross and/or microscopic examination of the described specimens and rendered or confirmed the above diagnosis. Specimen(s) Received: ? Right breast, short=superior, long=lateral ?? Clinical History: ? H/O DCIS right breast 8-9 o'clock ? Gross Description: ? Received fresh labeled O' [place] and A ??right breast short=superior long=lateral H/O DCIS 8-9 o'clock is a product of a simple mastectomy designated as right side oriented per the surg-path requisition form. ??The specimen does not include an axillary tail. ??The specimen weighs 160 grams and measures superior to inferior 13.0 cm, medial to lateral 10.5 cm, and anterior to posterior 3.5 cm. ??There is a skin ellipse on the anterior surface which measures 5.0 cm medial to lateral and 2.5 cm superior to inferior. ??The nipple is erect. ??The deep margin is black inked and all other margins are blue inked. In the lower outer quadrant is a 2.7 x 2.5 x 1.5 cm white mass with two pinpoint areas of hemorrhagic, consistent with previous biopsy sites. ??The remaining breast tissue consists of white fibrous tissue admixed with yellow adipose tissue. BLOCK MADSEN A1 ?Nipple cross section A2 ?Deep to nipple cross section A3 ?Lower outer quadrant mass with overlying skin A4 ?Lower outer quadrant mass with overlying skin and anterior margin near inferior edge A5 ?Lower outer quadrant mass with deep margin A6 ?9 o'clock A7 ?10 o'clock A8 ?Upper outer quadrant 11 o'clock A9 ?Upper inner quadrant 1 o'clock A10 ?Upper inner quadrant 2 o'clock A11 ?Lower inner quadrant 4 o'clock A12 ?Lower inner quadrant 5 o'clock (LRaffy Schnesilviano)/kab End of Report [facility] 01/30/2004 01/30/2004 10: 27 EDT Carri Irizarry MD PATHOLOGY ORDERAB LES Performing Organization Address City/State/[facility] Co de Phone Number [facility] [address] [place] [address] documented in this encounter Visit Diagnoses Not on filedocumented in this encounter Care Teams Fish Liver Sorter Relationship Specialty Start Date End Date None, Provider PCP - General 08/21/09 01/05/11 Anneliese Guillaume MD PCP - General 12/17/08 08/20/09 documented as of this encounter
--- OUTSIDE RECORDS SUMMARY | 2024-03-20 15:17 | XMS_ITS | Encounter Summary ---
Author Organization [facility] Address [address] [place] [address] Care Team Providers Care Marine Geologist Name Role Phone Unavailable Primary Care Provider Unavailabl e Encounter Details Date Type Department Care Team (Late st Contact Info) Description 11/22/2003 13:42 EDT Hospital Encounter [address] [address] Leonre Berman MD PhD [address] [place] [address] Level 2 [place] [phone] Social History Tobacco Use Types Packs/Day Years Used Date Smoking Tobacco: Never Passive Smoke Exposure: Never Smokeless Tobacco: Never Alcohol Use Standard Drinks/Week Comments Not Currently 1 (1 standard drink = 0.6 oz pur e alcohol) [facility] Utilities Answer Date Recorded In the past 12 months has e [employer], gas, oil, or water [employer] threatened to shut off services in your [...] [facility] Interventional Radiology Unit [address] [place] [address] 04/02/2024 15:15 EDT Office Visit [facility] Surgical Oncology - [facility] [address] [place], [place] [phone] Adolfo Carreno MD [address] [place] [address], Level 2 [place] [phone] 04/05/2024 9:30 EDT Telemedicine [facility] - [facility] Palliative Care Services [address] [place] [address] [phone] Chichi Woods MD [address] [place] [address] 262 [place] [phone] 04/11/2024 15:00 EDT Telemedicine [facility] Hematology & Oncology - [address] 334191 Alisson Carreon MD [address] [place] [address] 2 [place] [phone] 04/13/2024 13:30 EDT Appointment [facility] Hematology & Oncology - [address] [phone] 04/13/2024 14:00 EDT Appointment [facility] Hematology & Oncology - [address] 860431 04/16/2024 10:00 EST Telemedicine [facility] - [facility] Palliative Care Services [address] [place] [address] [phone] Chichi Woods MD [address] [place] [phone] 04/24/2024 9:00 EST Appointment [facility] Radiology CT Outpatient - [address] [phone] 04/24/2024 11:00 EST Appointment [facility] Breast Imaging - [address] 553001 04/27/2024 12:00 EST Appointment [facility] Hematology & Oncology - [address] [phone] 05/02/2024 15:00 EST Telemedicine [facility] Hematology & Oncology - [address] 269551 Alisson Carreon MD [address] [place] [address] 2 [place] [phone] 05/04/2024 10:15 EST Ancillary Procedure [facility] Cardiology - [address] [place] [address] 05/04/2024 11:30 EST Appointment [facility] Hematology & Oncology - [address] 039221 05/04/2024 12:00 EST Appointment [facility] Hematology & Oncology [address] 813651 06/12/2024 13:00 EST Appointment [facility] Radiology CT - [address] 141281 documented as of this encounter Visit Diagnoses Not on filedocumented in this encounter Additional Health Concerns Infection Onset Date Last Indicated Resolved Time R/O COVID-19 12/12/2023 12/12/2023 12/12/2023 15:3 5 EDT R/O COVID-19 01/08/2024 01/08/2024 01/08/2024 18:2 6 EDT R/O COVID-19 01/16/2024 01/16/2024 01/16/2024 17:5 0 EDT documented as of this encounter
--- OUTSIDE RECORDS SUMMARY | 2024-03-20 15:17 | XMS_ITS | Encounter Summary ---
Author Organization [facility] Address [address] [place] [address] Care Team Providers Care Baggage Clerk Name Role Phone Unavailable Primary Care Provider Unavailabl e Encounter Details Date Type Department Care Team (Latest Contact Info) Description 04/10/2003 7:15 EST - 04/10/2003 11:59 EST Hospital Encounter [facility] - Other [address] [place] [phone] Maria Fernanda Guillaume MD Discharge Disposition: Auto Discharge Social History [...] Contact Info) Description 04/02/2024 10:30 EDT Appointment [facility] Interventional Radiology Unit [address], [place] [phone] 04/02/2024 15:15 EDT Office Visit [facility] Surgical Oncology - [address] [phone] Adolfo Carreno MD 111 [facility], Level 2 [place] [phone] 04/05/2024 9:30 EDT Telemedicine [facility] Palliative Care Services [address] [place] [address] [phone] Chichi Woods MD [address] [place] [address] [phone] 04/11/2024 15:00 EDT Telemedicine [facility] Hematology & Oncology - [address] [phone] Alisson Carreon MD [address] [place] [address], Level 2 [place] [phone] 04/13/2024 13:30 EDT Appointment [facility] Hematology & Oncology [address] [phone] 04/13/2024 14:00 EDT Appointment [facility] Hematology & Oncology [address] [phone] 04/16/2024 10:00 EST Telemedicine [facility] Palliative Care Services [address] [place] [address] [phone] Chichi Woods MD [address] [place] [address] [phone] 04/24/2024 9:00 EST Appointment [facility] Radiology CT Outpatient - [address] 132851 04/24/2024 11:00 EST Appointment [facility] Breast Imaging - [address] [phone] 04/27/2024 12:00 EST Appointment [facility] Hematology & Oncology - [address] [phone] 05/02/2024 15:00 EST Telemedicine [facility] Hematology & Oncology - [address] [address] Alisson Carreon MD 111 [facility], Level 2 [place] [phone] 05/04/2024 10:15 EST Ancillary Procedure [facility] Cardiology - [address] [place] [address] 05/04/2024 11:30 EST Appointment [facility] Hematology & Oncology - [address] [phone] 05/04/2024 12:00 EST Appointment [facility] Hematology & Oncology [address] [phone] 06/12/2024 13:00 EST Appointment [facility] Radiology CT - [address] [phone] documented as of this encounter Procedures Procedure Name Priority Date/Time Associated Diagnosis Comments [place] MAMMO SCREENING DIGITAL Routine 04/10/2003 8:53 EST documented in this encounter Results * [place] MAMMO SCREENING DIGITAL (04/10/2003 8:53 EST) Anatomical Region Laterality Modality Other 04/10/2003 8:53 EST Impressions 02/10/2009 0:16 EDT IMPRESSION: LEFT BREAST - CATEGORY 1 Negative, no evidence of malignancy. Normal interval follow-up is recommended in 12 months. RIGHT BREAST - CATEGORY 0 1.Focal asymmetric density in the axillary region, MLO view. Spot magnification ML and non magnified AT view(s) are recommended at this time. 2.Grouped punctate calcifications at 9 o'clock. Spot magnification CC and ML view(s) are recommended at this time. OVERALL ASSESSMENT - INCOMPLETE: NEED ADDITIONAL IMAGING EVALUATION END OF IMPRESSION Narrative 02/10/2009 0:16 EDT BASELINE ?? [PCP MARIA FERNANDA GUILLAUME] This is the patient's baseline exam. Left Breast Findings (CAD used to interpret routine digital projection): The breast is heterogeneously dense. This may lower the sensitivity of mammography. No significant masses, calcifications or other abnormalities are seen. Right Breast Findings (CAD used to interpret routine digital projection): The breast is heterogeneously dense. This may lower the sensitivity of mammography. A focal asymmetric density is present in the axillary region, likely benign summated tissue. Loosely grouped punctate calcifications are present at 9 o'clock; there is no associated mass. Procedure Note Tylor Williamson MD - 02/10/2009 BASELINE [PCP MARIA FERNANDA GUILLAUME] This is the patient's baseline exam. Left Breast Findings (CAD used to interpret routine digital projection): The breast is heterogeneously dense. This may lower the sensitivity of mammography. No significant masses, calcifications or other abnormalities are seen. Right Breast Findings (CAD used to interpret routine digital projection): The breast is heterogeneously dense. This may lower the sensitivity of mammography. A focal asymmetric density is present in the axillary region, likely benign summated tissue. Loosely grouped punctate calcifications are present at 9 o'clock; there is no associated mass. IMPRESSION IMPRESSION: LEFT BREAST - CATEGORY 1 Negative, no evidence of malignancy. Normal interval follow-up is recommended in 12 months. RIGHT BREAST - CATEGORY 0 1.Focal asymmetric density in the axillary region, MLO view. Spot magnification ML and non magnified AT view(s) are recommended at this time. 2.Grouped punctate calcifications at 9 o'clock. Spot magnification CC and ML view(s) are recommended at this time. OVERALL ASSESSMENT - INCOMPLETE: NEED ADDITIONAL IMAGING EVALUATION END OF IMPRESSION Maria Fernanda Guillaume MD IMG MAMMOGRAPHY JAIMEE ACOSTA documented in this encounter Visit Diagnoses Not on filedocumented in this encounter
--- OUTSIDE RECORDS SUMMARY | 2024-03-20 15:18 | XMS_ITS | Encounter Summary ---
Author Organization [facility] Address [address] [place] [address] Care Team Providers Care Industrial Hygenist Name Role Phone Unavailable Primary Care Provider Unavailabl e Encounter Details Date Type Department Care Team (Late st Contact Info) Description 01/09/2002 8:42 EDT Hospital Encounter [facility] - Other [address] [place] [address] Madison Helton, BLOW MOULDING MACHINE OPERATOR [address] [place] [phone] Unknown, Provider, Social History Tobacco Use Types Packs/Day Years Used Date Smoking Tobacco: Never Passive Smoke Exposure: Never Smokeless Tobacco: Never Alcohol Use Standard Drinks/Week Comments Not Currently 1 (1 standard drink = 0.6 oz pur e alcohol) [facility] Utilities Answer Date Recorded In the past 12 months has [employer], gas, oil, or water [employer] threatened to shut off services in your [...] Appointment [facility] Interventional Radiology Unit [address] [place] [address] 04/02/2024 15:15 EDT Office Visit [facility] Surgical Oncology - [facility] [address], [place] 309491 Adolfo Carreno MD 111 [facility], Level 2 [phone] 04/05/2024 9:30 EDT Telemedicine [facility] Palliative Care Services [address], [place] [phone] Chichi Woods MD [address] [place] [address] 262 [phone] 04/11/2024 15:00 EDT Telemedicine [facility] Hematology & Oncology - [address] [phone] Alisson Carreon MD [address] [place] [address], Level 2 [phone] 04/13/2024 13:30 EDT Appointment [facility] Hematology & Oncology [address] 108211 04/13/2024 14:00 EDT Appointment [facility] Hematology & Oncology [address] [address] 04/16/2024 10:00 EST Telemedicine [facility] - [facility] Palliative Care Services [address] [place] [phone] Chichi Woods MD [address] [place] [address] [phone] 04/24/2024 9:00 EST Appointment [facility] Radiology CT Outpatient - [address] [id number] 04/24/2024 11:00 EST Appointment [facility] Breast Imaging - [address] [phone] 04/27/2024 12:00 EST Appointment [facility] Hematology & Oncology - [address] [phone] 05/02/2024 15:00 EST Telemedicine [facility] Hematology & Oncology - [address] [phone] Alisson Carreon MD 111 [facility], Level 2 [phone] 05/04/2024 10:15 EST Ancillary Procedure [facility] Cardiology - [address] [place] [address] 05/04/2024 11:30 EST Appointment [facility] Hematology & Oncology - [address] [phone] 05/04/2024 12:00 EST Appointment [facility] Hematology & Oncology - [address] [phone] 06/12/2024 13:00 EST Appointment [facility] Radiology CT - [address] [phone] documented as of this encounter Visit Diagnoses Not on filedocumented in this encounter Additional Health Concerns Infection Onset Date Last Indicated Resolved Time R/O COVID-19 12/12/2023 12/12/2023 12/12/2023 15:3 5 EDT R/O COVID-19 01/08/2024 01/08/2024 01/08/2024 18:2 6 EDT R/O COVID-19 01/16/2024 01/16/2024 01/16/2024 17:5 0 EDT documented as of this encounter
--- OUTSIDE RECORDS SUMMARY | 2024-03-20 15:18 | XMS_ITS | Encounter Summary ---
Author Organization [facility] Address [address] [place] [address] Care Team Providers Care Industrial Maintenance Mechanic Name Role Phone Unavailable Primary Care Provider Unavailabl e Encounter Details Date Type Department Care Team (Late st Contact Info) Description 03/09/2001 9:21 EDT - 03/09/2001 11:59 EDT Hospital Encounter [facility] - [facility] [address] [place] [address] Nithin Albert MD [address] [facility] [address] [place] [address] Discharge Disposition: Auto Discharge Social [...] Appointment [facility] Interventional Radiology Unit [address] [place] [address] 04/02/2024 15:15 EDT Office Visit [facility] Surgical Oncology - [facility] [address] [place] [address] Adolfo Carreno MD 111 [facility], Level 2 [place] [phone] 04/05/2024 9:30 EDT Telemedicine [facility] Palliative Care Services [address] [place] [address] [phone] Chichi Woods MD [address] [place] [phone] 04/11/2024 15:00 EDT Telemedicine [facility] Hematology & Oncology - [address] [phone] Alisson Carreon MD [address] [place] [address] [address] [place] [phone] 04/13/2024 13:30 EDT Appointment [facility] Hematology & Oncology - [address] 108231 04/13/2024 14:00 EDT Appointment [facility] Hematology & Oncology [address] [phone] 04/16/2024 10:00 EST Telemedicine [facility] Palliative Care Services [address] [place] [address] Chichi Woods MD [address] [place] [address] [phone] 04/24/2024 9:00 EST Appointment [facility] Radiology CT Outpatient - [address] 500051 04/24/2024 11:00 EST Appointment [facility] Breast Imaging - [address] [phone] 04/27/2024 12:00 EST Appointment [facility] Hematology & Oncology [address] [address] 05/02/2024 15:00 EST Telemedicine [facility] Hematology & Oncology [address] [address] Alisson Carreon MD [address] [place] [address], [facility], Level [address] [place] [phone] 05/04/2024 10:15 EST Ancillary Procedure [facility] Cardiology - [address] [place] [address] 05/04/2024 11:30 EST Appointment [facility] Hematology & Oncology [address] [address] 05/04/2024 12:00 EST Appointment [facility] Hematology & Oncology [address] 737671 06/12/2024 13:00 EST Appointment [facility] Radiology CT - [address] [phone] documented as of this encounter Procedures Procedure Name Priority Date/Time Associated Diagnosis Comments L SPINE 2-3 VIEWS Routine 03/09/2001 11: 05 EDT documented in this encounter Results * L SPINE 2-3 VIEWS (03/09/2001 11:05 EDT) Anatomical Region Laterality Modality Other 03/09/2001 11:0 5 EDT Impressions 04/23/2009 2:21 EST IMPRESSION: #1: Anterolisthesis of L-4 on L-5 with lucency through the pars at L-4 and L-3, the pars intra-articularis of L-5 is not well seen. D: 03-13-01 T: 03-14-01 /am Narrative 04/23/2009 2:21 EST LBP. R/O SPONDYLOLYSIS/DDD. DOI: 03-09-01 LUMBAR SPINE: Lateral flexion/extension views of the lumbar spine are compared to a prior examination dated 3-22-01. Lumbar vertebral body heights are maintained. There is disc space loss at L4-5 and L5-S1. There is anterolisthesis of L-4 on L-5 of approximately Grade I. No significant change on flexion and extension. Lucency through the posterior elements of L-4 pars intra-articularis is noted. There is also lucency through the L-3 and L-3 pars. Procedure Note Dinh Irizarry, PT - 04/23/2009 LBP. R/O SPONDYLOLYSIS/DDD. DOI: 03-09-01 LUMBAR SPINE: Lateral flexion/extension views of the lumbar spine are compared to a prior examination dated 09-01-00. Lumbar vertebral body heights are maintained. There is disc space loss at L4-5 and L5-S1. There is anterolisthesis of L-4 on L-5 of approximately Grade I. No significant change on flexion and extension. Lucency through the posterior elements of L-4 pars intra-articularis is noted. There is also lucency through the L-3 and L-3 pars. IMPRESSION IMPRESSION: #1: Anterolisthesis of L-4 on L-5 with lucency through the pars at L-4 and L-3, the pars intra-articularis of L-5 is not well seen. D: 03-13-01 T: 03-14-01 /am Nithin Albert MD IMG DIAGNOSTIC IMAGI NG ORDERABLES documented in this encounter Visit Diagnoses Not on filedocumented in this encounter
--- OUTSIDE RECORDS SUMMARY | 2024-03-20 15:18 | XMS_ITS | Encounter Summary ---
Author Organization [facility] Address [address] [place] [address] Care Team Providers Care Tool Design Checker Name Role Phone Unavailable Primary Care Provider Unavailabl e Encounter Details Date Type Department Care Team (Latest Contact Info) Description 09/28/2000 18:14 EDT Hospital Encounter [address] [address] Maria Fernanda Red MD [facility]charge [facility]: [facility] [address] [place] [address] 04/02/2024 15:15 EDT Office Visit [facility] Surgical Oncology - [address] [phone] Adolfo Carreno MD [address] [place] [address], Level [address] [place] [phone] 04/05/2024 9:30 EDT Telemedicine [facility] Palliative Care Services [address] [place] [address] [phone] Chichi Woods MD [address] [place] [address] [phone] 04/11/2024 15:00 EDT Telemedicine [facility] Hematology & Oncology [address] [address] Alisson Carreon MD [address] [place] [address], Level [address] [place] [phone] 04/13/2024 13:30 EDT Appointment [facility] Hematology & Oncology [address] 076251 04/13/2024 14:00 EDT Appointment [facility] Hematology & Oncology [address] [address] 04/16/2024 10:00 EST Telemedicine [facility] - [facility] Palliative Care Services [address] [place] [address] [phone] Chichi Woods MD [address] [place] [address] [phone] 04/24/2024 9:00 EST Appointment [facility] Radiology CT Outpatient - [address] [id number] 04/24/2024 11:00 EST Appointment [facility] Breast Imaging - [address] [phone] 04/27/2024 12:00 EST Appointment [facility] Hematology & Oncology - [address] [phone] 05/02/2024 15:00 EST Telemedicine [facility] Hematology & Oncology - [address] [address] Alisson Carreon MD 111 [facility], [facility], Level [address] [place] [phone] 05/04/2024 10:15 EST Ancillary Procedure [facility] Cardiology - [address] [place] [address] 05/04/2024 11:30 EST Appointment [facility] Hematology & Oncology - [address] [phone] 05/04/2024 12:00 EST Appointment [facility] Hematology & Oncology [address] 937491 06/12/2024 13:00 EST Appointment [facility] Radiology CT - [address] [phone] documented as of this encounter Procedures Procedure Name Priority Date/Time Associated Diagnosis Comments CT LUMBAR SPINE WO CONTRAST Routine 09/28/2000 18:33 EDT documented in this encounter Results * CT LUMBAR SPINE WO CONTRAST (09/28/2000 18:33 EDT) Anatomical Region Laterality Modality Other 09/28/2000 18:3 3 EDT Impressions 04/22/2009 21:27 EST IMPRESSION: 1. 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 2. Possible pars articularis defect bilaterally above the L5-S1 space. 3. Anterolisthesis of L4 on L5. 4. 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 5. Broad-based bulge at L3-4. /rml Narrative 04/22/2009 21:[address], L3 SPONDOLOSIS ON PLAIN XRAY, BACK PAIN R/O EVALUATE GIVE MORE DETAIL CT OF THE LUMBAR SPINE WITHOUT CONTRAST 09/28/2000 18:30 HISTORY: L3 spondolytic changes on plain x-ray, now with back pain. Follow-up exam. FINDINGS: CT of the lumbar spine without contrast was performed and evaluated in bone windows and soft tissue windows. The engine cowling installer film shows Grade I anterolisthesis of L4 on L5. There is a vacuum disc at L4-5. There is pseudo-herniation at L4-5. There is a broad-based bulge of the nucleus pulposis at L3-4. Above the L4-5 disc space there are bilateral spondolytic defects consistent with pars interarticularis defects. Also, there is a suggestion of a pars interarticularis defect bilaterally at L5-S1. Procedure Note Alex Booth MD / David, Hugo Aguilera MD - 04/22/[address], L3 SPONDOLOSIS ON PLAIN XRAY, BACK PAIN R/O EVALUATE GIVE MORE DETAIL CT OF THE LUMBAR SPINE WITHOUT CONTRAST 09/28/2000 18:30 HISTORY: L3 spondolytic changes on plain x-ray, now with back pain. Follow-up exam. FINDINGS: CT of the lumbar spine without contrast was performed and evaluated in bone windows and soft tissue windows. The engine cowling installer film shows Grade I anterolisthesis of L4 on L5. There is a vacuum disc at L4-5. There is pseudo-herniation at L4-5. There is a broad-based bulge of the nucleus pulposis at L3-4. Above the L4-5 disc space there are bilateral spondolytic defects consistent with pars interarticularis defects. Also, there is a suggestion of a pars interarticularis defect bilaterally at L5-S1. IMPRESSION IMPRESSION: 1. 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 2. Possible pars articularis defect bilaterally above the L5-S1 space. 3. Anterolisthesis of L4 on L5. 4. 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 5. Broad-based bulge at L3-4. /hannah Maria Fernanda Red MD IMG CT ORDERABLES documented in this encounter Visit Diagnoses Not on filedocumented in this encounter
--- OUTSIDE RECORDS SUMMARY | 2024-03-20 15:18 | XMS_ITS | Continuity of Care Document ---
Author Organization [facility] VICE PRESIDENT [employer] Of [facility] Address [address] [facility] [address] [place] [address] Phone [phone] Care Team Providers Care Key Person Name Role Phone Linda Blancas MD Care Team Information Corporate Intern [phone] Problems Active Problems Provider Date Pure hypercholesterolemia Onset: 12/20/2016 Adjustment disorder Onset: 10/05 Genital herpes simplex Onset: Lumbar spondylosis Onset: 2016 Headache Onset: 7 Insomnia Onset: 7 Asthma without status asthmaticus Onset: 10/05/2016 Allergic rhinitis Onset: 017 Carpal tunnel syndrome Onset: Malignant neoplasm of female breast Onset: 11/12/2003 Adjustment disorder with anxious mood FLYNN Rosario Onset: 03/02/2018 Social History Type Date Description Comments Sex Female Tobacco Use Start: Unknown Never Smoked Cigarettes Tobacco Use Start: Unknown Never Smoked Cigars Tobacco Use Start: Unknown Never Smoked A Pipe Tobacco Use Reviewed: 03/17/24 Never Used Smokeless T obacco ETOH Use 02/04/2018 Occasional Alcohol Recreational Drug Use Never Used Drugs Tobacco Use Reviewed: 03/17/24 Patient has never smok ed Smoking Status Reviewed: 03/17/24 Patient has never sm oked Exercise Type/Frequency Exercises regular ly Seat Belt/Car Seat Always uses seat belt Guns in Home Yes, Locked Up Smoke Alarms Carbon Monoxide Detector: Ye s Smoke Alarms Yes Recent Travel There has not be en recent travel abroad Allergies and adverse reactions Active Allergies Criticality Reaction Severity Comments Date Sulfa Antibiotics Unable to assess criticality rash 04/22/2017 Amoxicillin Unable to assess criticality rash 04/22/2017 Adhesives Unable to assess criticality paper tape ok 03/17/2024 Medications Active Medications SIG Qnty Indications Order ing Provider Date Rvqabwar518379Uvbx/ML Suspension swish 15 milliliters for at least 15 seconds, then swallow 3 times daily for 7 days 400ml B37.0 TANK Cabello 03/17/2024 Senna-Tabs8.6mg Tablets 1-2 tablets by mouth once daily 180tabs Kaitlin Lawrence NP 12/29/2023 Cyclobenzaprine HCL5mg Tablets 1-2 tabs by mouth three times a day as needed 30tabs R25.2 Kaitlin Lawrence NP 12/29/2023 Zolpidem Jojmeaxr8al Tablets take one tablet by mouth at bedtime as needed 30tabs G47.00 Linda Blancas MD 05/04/2017 Kzllhgxzao930ks Tablets take 1 tablet at bedtime 90tabs Linda Blancas MD 10/05/2016 Xwtjxogtim300en Capsules take 1 capsule twice a day 180helena Blancas MD 09/24/2016 Sumatriptan Mjtrtomdt40ob Tablets 1 tablet daily as needed, can repeat in 2 hours if needed, max 200 mg in 24 h 10tabs Unknown 01/15/2013 Vatukwfqxsqptn999th Tablets Take 4 Tablet By Mouth Daily Unknown Qynexvu1jh Tablets 0.5 tab by mouth twice a day Unknown Effexor XR75mg Caps ER 24HR 2 capsule twice daily. Unknown Kgofcdfkvq59jv Tablets 10 mg daily. Unkn own Valacyclovir VBI798mc Tablets 1 by mouth every day Unknown Nvaxh45gh Tablets 1 by mouth every day Unknown Nwimzsr181yp Solution Rec every 3 weeks Unknown Ijlzcckuhb25zs Capsules DR 1 by mouth 2 times daily 90helena Blancas MD Unisom PM Qnuv55-235ap Tablets 1/2 pill as needed. Unknown Multivitamin Women 50+50+ Tablets take one daily ( multivitamin with minerals) Unknown Red Yeast Rice Cwqbimt674vm Capsules 2 by mouth every day Unknown Calcium 500+D7017-057pk-Haeu Tablets 2 by mouth every day Unknown History Medications Xttmmfzh390ys Capsules 4 capsules every 12 hours x 5 days 40caps Micky Toro MD 02/14/2024 - 03/17/2024 Keqvjqsa447579Pyvf/ML Suspension swish 15 milliliters for at least 15 seconds, then swallow 3 times daily for 7 days 400ml B37.0 Linda Blancas MD 01/21/2024 - 03/17/2024 Jiacgmoxpoqw80yb Lindsay 1 lindsay dissolved in mouth 5 times daily for 10 days 50units B37.0 TANK Cabello 01/21/2024 - 03/17/2024 Cyclobenzaprine HCL5mg Tablets 1 tab by mouth up to three times daily as needed for spasms 42tabs R25.2 Michael Willams NP 12/20/2023 - 01/21/2024 Guaifenesin-Dmkjibd167 -10mg/5ML Solution take 5-10 milliliters by mouth every 6 hours as needed for cough 237ml R05.9 Linda Blancas MD 10/24/2023 - 12/12/2023 Dmladdjpjc22fz Tablets 3 tabs by mouth x 3 days, then 2 tabs x 3 days, then 1 tab x 3 days, then stop 18tabs R05.9 Alva Elena NP 09/29/2023 - 10/24/2023 Albuterol Sulfate VYR604(90Base) mcg/Act Aerosol 1 to 2 puffs by inhalation every 4 hours as needed for wheezing 6.700gm R05.9 Alva Elena NP 09/29/2023 - 12/12/2023 Albuterol Sulfate KFW416(90Base) mcg/Act Aerosol 2 puffs every 4-6 hours as needed 6.700gm R05.9 Karen Au MD 09/24/2023 - 09/29/2023 Dvdekgdswc48gb Tablets take 2 tabs by mouth for 5 days 10tabs R05.9 Karen Au MD 09/24/2023 - 09/29/2023 Lzbypfewyxy927rd Capsules 1 cap by mouth three times a day as needed for cough 20caps R05.2 TANK Cabello 09/21/2023 - 09/29/2023 Immunizations CPT Code Status Date Vaccine Lot # [id number] Given 04/22/2023 Influenza Vacc Fluarix/laval/zone 19yrs-64yr ( St Supply) [id number] 51458 Given 04/14/2022 Tdap ( State Supply) 19-6 4yrs [id number] 70630 Given 04/06/2022 Influenza Vacc Fluarix/laval/zone 19yrs-64yr ( St Supply) [id number] 84827 Given 07/15/2021 Zoster Shingri x ( State Supply) 50yrs-64yrs Only [id number] 49243 Given 05/05/2021 Influenza Vacc Fluarix/laval/zone 19yrs-64yr ( St Supply) [id number] 69946 Given 03/17/2021 Zoster Shingri x ( State Supply) 50yrs-64yrs Only [id number] 60403 Given 02/27/2021 Covid-19 Vaccin e-Pfizer 12y and older Booster Dose [id number] 98509 Given 09/17/2020 Covid-19 Vaccin e Pfizer(Historical)12y and older Dose 2 55098 Given 08/27/2020 Covid-19 Vac Pfizer (Hist orical) 12yrs+ 91328 Given 03/15/2020 Influenza Vacc Fluarix/laval/zone 19yrs-64yr ( St Supply) [id number] 47605 Given 04/10/2019 Influenza Vacc Fluarix/laval/zone 19yrs-64yr ( St Supply) [id number] 47959 Given 02/09/2019 Pneumococcal Va ccine PPV 23( State supply) 19yrs-64yrs [id number] 59601 Given 03/10/2018 .Influenza Vacc ine Fluarix 19yrs and above ( Historical) [id number] 96721 Given 04/14/2015 .Influenza Vacc ine Fluarix 19yrs and above ( Historical) 05241 Given 05/08/2014 .Influenza Viru s Vaccine, Quad, Split, Im 0.25ML (Historical) 25154 Given 04/13/2013 Influenza Virus Vaccine, Split Virus, Preservative Free Im 0.5ML 62722 Given 05/19/2012 Pneumococcal Va ccine PPV 23 ( Private) 65yrs and older 56622 Given 04/18/2012 Influenza Virus Vaccine, Split Virus, Preservative Free Im 0.5ML 61528 Given 11/19/2011 Tdap ( Private) 65yrs and older 73322 Given 06/01/2011 Influenza Virus Vaccine Split Virus Intramuscular Use 0.5ML 63359 Given 04/13/2007 Oral Polio Vaccine(Histor ical) 15011 Given 04/13/2007 Hep A Adult 2 Doses (Stat e supply) 19yrs-64 yrs 66544 Given 06/13/2006 Td Toxoids Adso rbed For Use 7Yrs Or Older For Intramuscular Use Vital Signs Date Vital Result Comment 03/17/2024 1:00pm Weight 101.00 lb Weight 45.814 kg BP Systolic 110 mmHg Cuff- Regular, L eft Arm BP Diastolic 78 mmHg Cuff- Regular, L eft Arm Heart Rate 99 /min Electronically A cq Body Temperature 96.4 F Tympanic Body Temperature 35.8 C Respiratory Rate 20 /min Unlabored O2 % BldC Oximetry 98 % On Room Air 01/23/2024 2:04pm Weight 120.00 lb Patient De clined, Patient Reported Weight 54.432 kg Height 61 inches 5'1, Previous M easurement Height in cm's 154.9 cm BP Systolic 116 mmHg Cuff- Small, Rig ht Arm BP Diastolic 84 mmHg Cuff- Small, Rig ht Arm Heart Rate 102 /min Pulse- Radial Body Temperature 95.4 F Temporal Body Temperature 35.2 C Respiratory Rate 22 /min O2 % BldC Oximetry 100 % Oxygen 3L BMI (Body Mass Index) 22.7 kg/m2 Results Test Acquired Date Facility Test Result H/L Range Note Laboratory test finding 4 Manual Entry Hemoglobin 13.0 11.6-15.2 Hematocrit 38.3 34.9-44.4 Creatinine Serum Mass/Vol 0.70 0.52-1.04 Glucose Ser/Plas Mol/Vol 135 High 70-99 Basic Metabolic Panel (BMP) 4 [facility] Sodium 133 mmol/L Low 136-145 Potassium (K) 3.8 mmol/L 3.5-5.1 Chloride (CL) 96 mmol/L 96-107 Co2 (Co2) 32 mmol/L 21-32 Anion Gap 5 mmol/L 5-14 Glucose, Serum 142 mg/dL High 70-99 Calcium 9.6 mg/dL 8.5-10.1 Blood Urea Nitrogen 19 mg/dL 7-25 Creatinine 0.94 mg/dL 0.55-1.02 GFR, Calculated 69 mL/min/1.73m2 >60 1 Inhouse Multi Virus PCR 4 In House Manual Results .Sars-Cov-2 Swab Positive Abnormal Negative .Flu A Negative .Flu B Negative .RSV Negative Inhouse Multi Virus PCR 4 In House Manual Results .Sars-Cov-2 Swab Negative .Flu A Negative .Flu B Negative .RSV Negative Basic Metabolic Panel (BMP) 4 [facility] Sodium 126 mmol/L Low 136-145 Potassium (K) 3.7 mmol/L 3.5-5.1 Chloride (CL) 95 mmol/L Low 96-107 Co2 (Co2) 26 mmol/L 21-32 Anion Gap 5 mmol/L 5-14 Glucose, Serum 127 mg/dL High 70-99 Calcium 6.9 mg/dL Low 8.5-10.1 Blood Urea Nitrogen 15 mg/dL 7-25 Creatinine 0.82 mg/dL 0.55-1.02 GFR, Calculated 81 mL/min/1.73m2 >60 2 Basic Metabolic Panel (BMP) 4 [facility] Sodium 134 mmol/L Low 136-145 Potassium (K) 4.2 mmol/L 3.5-5.1 Chloride (CL) 100 mmol/L 96-107 Co2 (Co2) 30 mmol/L 21-32 Anion Gap 4 mmol/L Low 5-14 Glucose, Serum 100 mg/dL High 70-99 Calcium 7.7 mg/dL Low 8.5-10.1 Blood Urea Nitrogen 22 mg/dL 7-25 Creatinine 0.86 mg/dL 0.55-1.02 GFR, Calculated 76 mL/min/1.73m2 >60 3 Fluid Differential 4 CCD Import Neutrophils Fluid Relative 8 % Lymphocytes Fluid Relative 30 % Dauphin/Macrophage 53 % Mesothelial Cells Fluid Relative 9 % Fluid Cell Count 4 CCD Import RBC, Fluid <56935 /cmm Nucleated Cells, fluid 186 /cmm Comment, fluid YellowSlig htly cloudy CBC W/Auto Diff 4 [facility] WBC 19.6 x10(3)/mcL High 4.5-11.0 RBC 3.44 x10(6)/mcL Low 4.00-5.2 0 Hgb 11.1 gm/dL Low 12.0-15.0 Hct 36.7 % Normal 36.0-46.0 MCV 107 fL High 80-100 MCH 32.3 pg Normal 26.0-34.0 MCHC 30.2 gm/dL Low 31.0-37.0 Platelet 209 x10(3)/mcL Normal 150-350 RDW 15.2 % High 11.5-14.5 MPV 11.0 fL Normal 9.2-12.7 NRBC % 0.0 % Normal 0.0-0.2 Reflex CBC D Morph Cancel Auto Diff Diff Type: Manual Laboratory test finding 4 [facility] CA 27 29-Brooks 760 unit/mL High <=38.0 4 .Morphology 4 [facility] Platelet Estimate Adequate RBC Morphology Abnormal Macrocyte 2+ Poikilocytosis 1+ .Manual Diff(DO Not Use) 4 [facility] Neutrophil 92 % High 31-76 Lymphocyte 5 % Low 24-44 Monocyte 2 % Normal 2-11 Eosinophil 0.0 Normal 0.0-4.0 Basophil 1 % Normal 0-2 Abs Seg Man 18.0 x10(3)/mcL High 1.5- 7.8 Abs Lymph Man 1.0 x10(3)/mcL Low 1.1 -4.8 Abs Dauphin Man 0.4 x10(3)/mcL Normal 0.0- 0.8 Abs Eos Man 0.0 x10(3)/mcL Normal 0.0-0 .3 Abs Baso Man 0.2 x10(3)/mcL High 0.0- 0.1 eGFR 4 [facility] eGFR Aa >60 mL/min/1.73m2 5 eGFR Radha >60 mL/min/1.73m2 6 Comprehensive Metabolic Panel 4 [facility] BUN 17 mg/dL Normal 7-18 Creatinine 0.7 mg/dL Normal 0.6-1.3 Calcium Level 9.0 mg/dL Normal 8.5-10.1 Ast 71 IU/L High 15-37 7 Bili Total 0.84 mg/dL Normal 0.20-1.00 Alk Phos 331 unit/L High 48-129 Total Protein 6.8 gm/dL Normal 6.4-8.2 Albumin Level 2.9 gm/dL Low 3.4-5.0 Glucose Level 122 mg/dL High 74-106 8 Sodium Level 145 mmol/L Normal 136-145 Potassium Level 3.3 mmol/L Low 3.5-5 .1 Chloride 112 mmol/L High 98-107 Co2 24 mmol/L Normal 21-32 Alt 44 IU/L Normal 13-61 9 A/G Ratio 0.7 Osmol Calculated 292 mOsm/kg Agap 12 BUN/Creat Ratio 24 1 PERFORMING LAB:[facility],[address] [place] [address] 2 PERFORMING LAB:[facility],[address] [place] [address] 3 PERFORMING LAB:[facility],[address] [place] [address] 4 A DDITIONAL INFORMATION The testing method is a chemiluminometric immunoassay manufactured by [employer] and performed on the [employer]'s [employer]. Values obtained with different assay methods or kits may be different and cannot be used interchangeably. Test results cannot be interpreted as absolute evidence for the presence or absence of malignant disease. Test Performed by: [place] [address] [employer]: James Jacob M.D. Ph.D.; CLIA# [id number] 5 Estimated GFR values are reported for both (AA) and Non (RADHA) populations. The eGFR has been validated only in healthy adults 18 - 70 years of age. The calculation has not been validated for women, patients of extreme body mass, or for patients with unusual dietary intake. 6 Estimated GFR values are reported for both (AA) and Non (RADHA) populations. The eGFR has been validated only in healthy adults 18 - 70 years of age. The calculation has not been validated for women, patients of extreme body mass, or for patients with unusual dietary intake. 7 Falsely decreased re sults of up to 19% may be seen in patients taking sulfasalazine or sulfapyridine. 8 Falsely decreased re sults of up to 21% may be seen in patients taking sulfasalazine. 9 Falsely decreased re sults of up to 72% may be seen in patients taking sulfasalazine and falsely decreased results of up to 19% may be seen in patients taking sulfapyridine. Procedures Date Code Description Status 02/14/2024 58213 No Charge Encounter Complete d 02/14/2024 0241U NFCT DS Rna 4 Targets Upper Respiratory Specimen Completed 02/09/2024 79852 No Charge Encounter Complete d 02/09/2024 0241U NFCT DS Rna 4 Targets Upper Respiratory Specimen Completed 01/23/2024 [facility] visit,established patie nt Completed 01/21/2024 [facility] visit,established patie nt Completed 12/29/[address] visit,established patie nt Completed 12/20/[address] [place] [address] visit,established patie nt Completed 10/24/[address] visit,established patie nt Completed 09/29/[address] visit,established patie nt Completed 09/24/[address] visit,established patie nt Completed 09/21/2023 [facility] visit,established patie nt Completed Medical Devices Description No Information Available Encounters Type Date Location Provider Dx Diagnosis Office Visit 03/17/2024 12:45p [facility] T[facility] Pradhan B37.0 Candidal stomatitis Office Visit 01/23/2024 2:00p [facility] TANK Gunter S00.83xA Contusion of other part of head, initial encounter S40.812A Abrasion of left upp er arm, initial encounter S80.812A Abrasion, left lower leg, initial encounter Office Visit 01/21/2024 1:30p [facility] TANK Pradhan B37.0 Candidal stomatitis Office Visit 12/29/2023 11:00a [facility] Martha Lawrence NP M54.6 Pain in thoracic spine R25.2 Cramp and spasm Office Visit 12/20/2023 7:15p [facility] Martha Willams NP R25.2 Cramp and spasm Office Visit 10/24/2023 11:00a [facility] Martha Blancas MD R05.9 Cough, unspecified Office Visit 09/29/2023 1:45p [facility] Martha Elena NP R05.9 Cough, unspecified Office Visit 09/24/2023 3:00p [facility] Martha Au MD R05.9 Cough, unspecified Office Visit 09/21/2023 1:45p [facility] TANK Pradhan R05.2 Subacute cough Plan of Treatment 03/17/2024 - TANK Cabello* B37.0 Candidal stomatitis* New Medication:* Nystatin 592656 Unit/ML - swish 15 milliliters for at least 15 seconds, then swallow 3 times daily for 7 days * Comments:* Follow-up if no improvement or worsening symptoms. Functional Status Functional Condition Comment Date Status .None Active Mental Status Mental Condition Comment Date Status None Active Cognitive Ability Not Impaired Active Can Understand Information A ctive Referrals Description No Information Available
--- OUTSIDE RECORDS SUMMARY | 2024-03-20 15:18 | XMS_ITS | Encounter Summary ---
Author Organization [facility] Address [address] [place] [address] Care Team Providers Care Laboratory Veterinarian Name Role Phone Unavailable Primary Care Provider Unavailabl e Encounter Details Date Type Department Care Team (Latest Contact Info) Description 09/01/2000 14:53 EST Hospital Encounter [facility] - [address] [address] Maria Fernanda Red MD Discharge Disposition: Auto [...] Appointment [facility] Interventional Radiology Unit [address] [place] [address] 04/02/2024 15:15 EDT Office Visit [facility] Surgical Oncology - [address] [id number] Adolfo Carreno MD [address] [facility], Level [address] [place] [phone] 04/05/2024 9:30 EDT Telemedicine [facility] Palliative Care Services [address] [place] [address] [id number] Chichi Woods MD [address] [place] [phone] 04/11/2024 15:00 EDT Telemedicine [facility] [[email or web address]] Hematology & Oncology [address] [phone] Alisson Carreon MD [address] [place] [address], [address] [place] [phone] 04/13/2024 13:30 EDT Appointment [facility] [[email or web address] Hematology & Oncology [address] [id number] 04/13/2024 14:00 EDT Appointment [facility] [[email or web address]] Hematology & Oncology [address] [address] 04/16/2024 10:00 EST Telemedicine [facility] - [facility] Palliative Care Services [address] [place] [address] [id number] Chichi Woods MD [address] [place] [phone] 04/24/2024 9:00 EST Appointment [facility] Radiology CT Outpatient - [address] [address] 04/24/2024 11:00 EST Appointment [facility] Breast Imaging - [address] [id number] 04/27/2024 12:00 EST Appointment [facility] [[email or web address] Hematology & Oncology - [address] [phone] 05/02/2024 15:00 EST Telemedicine [facility] [[email or web address]] Hematology & Oncology - [address] [address] Alisson Carreon MD 111 [facility], Level [address] [place] [phone] 05/04/2024 10:15 EST Ancillary Procedure [facility] Cardiology - [address] [place] [address] 05/04/2024 11:30 EST Appointment [facility] [[email or web address]] Hematology & Oncology - [facility] [address] [place], [place] [address] 05/04/2024 12:00 EST Appointment [facility] [[email or web address]] Hematology & Oncology [address] [id number] 06/12/2024 13:00 EST Appointment [facility] Radiology CT - [facility] [address] [place], [place] [address] documented as of this encounter Procedures Procedure Name Priority Date/Time Associated Diagnosis Comments L SPINE 2-3 VIEWS Routine 09/01/2000 15: 22 EST documented in this encounter Results * L SPINE 2-3 VIEWS (09/01/2000 15:22 EST) Anatomical Region Laterality Modality Other 09/01/2000 15:2 2 EST Impressions 04/23/2009 0:40 EST IMPRESSION: 1. L3 spondylolysis. 2. Findings suggestive of L4 spondylolysis with Grade I spondylolisthesis. Further evaluation with limited CT or oblique views of the lumbar spine are recommended. /[facility] Narrative 04/23/2009 0:40 EST CHRONIC BACK PAIN, LUMBAR R/O SPONDYLILISTHESIS LUMBAR SPINE, 09/01/00 AP and lateral views. FINDINGS: There is L3 spondylolysis with no subluxation at the 3-4 disc space. Findings suggestive of L4 spondylolysis with a Grade I spondylolisthesis are also present. Further evaluation with limited CT or oblique views of the lumbar spine are recommended for further documentation. Severe degenerative disc disease is present at L4-L5. Remaining disc spaces and vertebral body heights are within normal limits. Mild degenerative changes are present in the SI joints. Procedure Note Kody Guzman MD - 04/23/2009 CHRONIC BACK PAIN, LUMBAR R/O SPONDYLILISTHESIS LUMBAR SPINE, 09/01/00 AP and lateral views. FINDINGS: There is L3 spondylolysis with no subluxation at the 3-4 disc space. Findings suggestive of L4 spondylolysis with a Grade I spondylolisthesis are also present. Further evaluation with limited CT or oblique views of the lumbar spine are recommended for further documentation. Severe degenerative disc disease is present at L4-L5. Remaining disc spaces and vertebral body heights are within normal limits. Mild degenerative changes are present in the SI joints. IMPRESSION IMPRESSION: 1. L3 spondylolysis. 2. Findings suggestive of L4 spondylolysis with Grade I spondylolisthesis. Further evaluation with limited CT or oblique views of the lumbar spine are recommended. /[facility] Maria Fernanda Red MD IMG DIAGNOSTIC IMAGI NG ORDERABLES documented in this encounter Visit Diagnoses Not on filedocumented in this encounter
--- OUTSIDE RECORDS SUMMARY | 2024-03-20 15:18 | XMS_ITS | Encounter Summary ---
Author Organization [facility] Address [address] [place] [address] Care Team Providers Care Solar Development Engineer Name Role Phone Unavailable Primary Care Provider Unavailabl e Encounter Details Date Type Department Care Team (Late st Contact Info) Description 01/08/2002 10:28 EDT Hospital Encounter [facility] - Other [address] [place] [address] Madison Helton, [address] MAGISTRATE [address] [place] [address] Unknown, Provider, Social History Tobacco Use Types Packs/Day Years Used Date Smoking Tobacco: Never Passive Smoke Exposure: Never Smokeless Tobacco: Never Alcohol Use Standard Drinks/Week Comments Not Currently 1 (1 standard drink = 0.6 oz pur e alcohol) [facility] Utilities Answer Date Recorded In the past 12 months has [employer], gas, oil, or water [employer] threatened to shut off services in your [...] EDT Appointment [facility] Interventional Radiology Unit [address] [place] [address] 04/02/2024 15:15 EDT Office Visit [facility] Surgical Oncology - [facility] [address] [place], [place] 095[address] Adolfo Carreno MD 111 [facility], Level 2 [place] [address] 04/05/2024 9:30 EDT Telemedicine [facility] Palliative Care Services [address] [place], [place] [phone] Chichi Woods MD [address] [place] [address] [address] [place] [phone] 04/11/2024 15:00 EDT Telemedicine [facility] Hematology & Oncology - [address] 047891 Alisson Carreon MD [address] [place] [address], Level 2 [place] [phone] 04/13/2024 13:30 EDT Appointment [facility] Hematology & Oncology [address] 671011 04/13/2024 14:00 EDT Appointment [facility] Hematology & Oncology [address] [address] 04/16/2024 10:00 EST Telemedicine [facility] - [facility] Palliative Care Services [address] [place] [address] Chichi Woods MD [address] [place] [phone] 04/24/2024 9:00 EST Appointment [facility] Radiology CT Outpatient - [address] [id number] 04/24/2024 11:00 EST Appointment [facility] Breast Imaging - [address] 916131 04/27/2024 12:00 EST Appointment [facility] Hematology & Oncology - [address] 058361 05/02/2024 15:00 EST Telemedicine [facility] Hematology & Oncology - [address] [phone] Alisson Carreon MD 111 [facility], Level 2 [place] [phone] 05/04/2024 10:15 EST Ancillary Procedure [facility] Cardiology - [address] [place] [address] 05/04/2024 11:30 EST Appointment [facility] Hematology & Oncology [address] [phone] 05/04/2024 12:00 EST Appointment [facility] Hematology & Oncology [address] [phone] 06/12/2024 13:00 EST Appointment [facility] Radiology CT - [address] [phone] documented as of this encounter Procedures Procedure Name Priority Date/Time Associated Diagnosis Comments CYTOPATHOLOGY Routine 01/08/2002 0:00 EDT documented in this encounter Results * CYTOPATHOLOGY (01/08/2002 0:00 EDT) Pathology Report: CYTOPATHOLOGY REPORT Reports generated via electronic interface contain original data; however they are lacking the format of the original report. Caution should be taken when reading/interpreti ng unformatted reports. Name: ? SUNSHINE SMITH ? Accession #: ? [id number] : ? 1960 (Age: 41) ??F ?Collect Date: ? 01/08/2002 Location: ? [facility] ? Receive Date: ? 01/09/2002 Provider: ?DIRK ROMANO [facility] COURT MAGISTRATE Copy to: ? Specimen/Source: ?ThinPrep Pap Test, Cervix/Endocervix Last Menstrual Period: ? 11/21/01 Menstrual/Pregnanc y Status: ? Menopausal: Early Hormonal/Contracep tive Status: ? Hormone Replacement Therapy Previous Gynecologic Pathology: ? Yes: Uterion Fibroids Other: ? HPVA - HPV testing requested if ASC-US on the current ThinPrep Pap test. ? SPECIMEN ADEQUACY ? Satisfactory for Evaluation - transformation zone component present GENERAL CATEGORIZATION ? Negative for Intraepithelial Lesion or Malignancy ? Document reviewed and electronically signed by: ? YOSHI Armstrong(ASCP) ? Report Date: ??01/15/2002 09:30 End of Report [facility] 01/08/2002 01/09/2002 Madison Helton NP PATHOLOGY ORDERABLES Performing Organization Address City/State/[facility] Co de Phone Number [facility] [address] [place] [address] documented in this encounter Visit Diagnoses Not on filedocumented in this encounter Additional Health Concerns Infection Onset Date Last Indicated Resolved Time R/O COVID-19 12/12/2023 12/12/2023 12/12/2023 15:3 5 EDT R/O COVID-19 01/08/2024 01/08/2024 01/08/2024 18:2 6 EDT R/O COVID-19 01/16/2024 01/16/2024 01/16/2024 17:5 0 EDT documented as of this encounter
--- OUTSIDE RECORDS SUMMARY | 2024-03-20 15:18 | XMS_ITS | Encounter Summary ---
Author Organization [facility] Address [address] [place] [address] Care Team Providers Care Electrician'S Assistant Name Role Phone Unavailable Primary Care Provider Unavailabl e Encounter Details Date Type Department Care Team (Late st Contact Info) Description 01/25/2002 21:15 EDT Hospital Encounter [facility] - Other [address] [place] [address] Maria Fernanda Red MD Unknown, Provider, Social [...] [facility] Interventional Radiology Unit [address] [place] [phone] 04/02/2024 15:15 EDT Office Visit [facility] Surgical Oncology - [facility] [address] [place] [address] Adolfo Carreno MD 111 [facility], Level 2 [place] [phone] 04/05/2024 9:30 EDT Telemedicine [facility] Palliative Care Services [address] [place], [place] [phone] Chichi oWods MD 111 [facility], [address] [phone] 04/11/2024 15:00 EDT Telemedicine [facility] Hematology & Oncology - [address] [phone] Alisson Carreon MD [address] [place] [address], [facility] 2 [place] [phone] 04/13/2024 13:30 EDT Appointment [facility] Hematology & Oncology - [address] 151601 04/13/2024 14:00 EDT Appointment [facility] Hematology & Oncology [address] [phone] 04/16/2024 10:00 EST Telemedicine [facility] - [facility] Palliative Care Services [address] [place] [address] Chichi Woods MD [address] [place] [phone] 04/24/2024 9:00 EST Appointment [facility] Radiology CT Outpatient - [address] 115491 04/24/2024 11:00 EST Appointment [facility] Breast Imaging - [facility] S [address] [id number] 04/27/2024 12:00 EST Appointment [facility] Hematology & Oncology - [address] [phone] 05/02/2024 15:00 EST Telemedicine [facility] Hematology & Oncology - [address] 809231 Alisson Carreon MD [address] [place] [address], [facility] 2 [place] [phone] 05/04/2024 10:15 EST Ancillary Procedure [facility] Cardiology [place] [place] [address] 05/04/2024 11:30 EST Appointment [facility] Hematology & Oncology [facility] [address] [place] [address] 05/04/2024 12:00 EST Appointment [facility] Hematology & Oncology [facility] [address] [place], [place] 8835[address] 06/12/2024 13:00 EST Appointment [facility] Radiology CT [facility] [address] [place], [place] [phone] documented as of this encounter Procedures Procedure Name Priority Date/Time Associated Diagnosis Comments N.GONORRHOEAE PROBE Routine 01/25/2002 2 0:14 EDT CHLAMYDIA TRACHOMATIS PROBE Routine 01/25/2002 20:14 EDT documented in this encounter Results * CHLAMYDIA TRACHOMATIS PROBE (01/25/2002 20:14 EDT) Specimen Description Unknown [facility] Result No Chlamydia trachomatis DNA detected by business development specialist mediated amplification. [facility] Report Status Final [id number] [facility] 01/25/2002 20:1 4 EDT 01/25/2002 20:14 EDT Maria Fernanda Red MD HISTORICAL LAB FOR S Q LOAD [facility] [address] [place] [address] * N.GONORRHOEAE PROBE (01/25/2002 20:14 EDT) Specimen Description Unknown [facility] Result No Neisseria gonorrhoeae DNA detected by business development specialist mediated amplification. [facility] Report Status Final [id number] [facility] 01/25/2002 20:1 4 EDT 01/25/2002 20:14 EDT Maria Fernanda Red MD HISTORICAL LAB FOR S Q LOAD [facility] [address] [place] [address] documented in this encounter Visit Diagnoses Not on filedocumented in this encounter Additional Health Concerns Infection Onset Date Last Indicated Resolved Time R/O COVID-19 12/12/2023 12/12/2023 12/12/2023 15:3 5 EDT R/O COVID-19 01/08/2024 01/08/2024 01/08/2024 18:2 6 EDT R/O COVID-19 01/16/2024 01/16/2024 01/16/2024 17:5 0 EDT documented as of this encounter
--- OUTSIDE RECORDS SUMMARY | 2024-03-20 15:18 | XMS_ITS ---
Author Organization [facility] Address [address] [place] [address] Care Team Providers Care Marble Machine Operator Name Role Phone Linda Blancas MD Primary Care Provider [phone] Adolfo Carreno MD Unavailable [phone] Oncology Status:Discharged (Closed) Start date:04/01/2021 Enrollment date:04/01/2021 End date:07/28/2023 Close reason:Therapy changed Linked medications:capecitabine (Discontinued) Linked problems:Malignant neoplasm of female breast (HCC-CMS) (Active) Continued Care and Services Coordination
--- OUTSIDE RECORDS SUMMARY | 2024-03-20 15:18 | XMS_ITS | Encounter Summary ---
Author Organization [facility] Address [address] [place] [address] Care Team Providers Care Assembly Repairer Name Role Phone Unavailable Primary Care Provider Unavailabl e Encounter Details Date Type Department Care Team (Late st Contact Info) Description 06/27/2000 22:22 EST Hospital Encounter [facility] - Other [address] [place] [address] Lety Ferrara MD 111 [facility], [facility] 4 [place] [address] Unknown, Provider, Social History Tobacco Use Types Packs/Day Years Used Date Smoking Tobacco: Never Passive Smoke Exposure: Never Smokeless Tobacco: Never Alcohol Use Standard Drinks/Week Comments Not Currently 1 (1 standard drink = 0.6 oz pur e alcohol) [facility] Utilities Answer Date Recorded In the past 12 months has e [employer], gas, oil, or water [employer] threatened to shut off services in [...] Appointment [facility] Interventional Radiology Unit [address] [place] [address] 04/02/2024 15:15 EDT Office Visit [facility] Surgical [facility] - [facility] [address] [place], [place] [phone] Adolfo Carreno MD 111 [facility], Level 2 [place] [address] 04/05/2024 9:30 EDT Telemedicine [facility] - [facility] Palliative Care Services [address] [place], [place] [address] Chichi Woods MD [address] [place] [address] [address] [place] [phone] 04/11/2024 15:00 EDT Telemedicine [facility] Hematology & Oncology [address] [phone] Alisson Carreon MD [address] [place] [address], Level 2 [place] [phone] 04/13/2024 13:30 EDT Appointment [facility] Hematology & Oncology [address] 352801 04/13/2024 14:00 EDT Appointment [facility] Hematology & Oncology [address] 687861 04/16/2024 10:00 EST Telemedicine [facility] - [facility] Palliative Care Services [address] [place] [address] [phone] Chichi Woods MD [address] [place] [phone] 04/24/2024 9:00 EST Appointment [facility] Radiology CT Outpatient - [address] 185541 04/24/2024 11:00 EST Appointment [facility] Breast Imaging - [facility] S [address] 353941 04/27/2024 12:00 EST Appointment [facility] Hematology & Oncology - [address] 161551 05/02/2024 15:00 EST Telemedicine [facility] Hematology & Oncology - [address] [phone] Alisson Carreon MD [address] [facility], [facility], Level 2 [place] [phone] 05/04/2024 10:15 EST Ancillary Procedure [facility] Cardiology - [place] [address] [place] [address] 05/04/2024 11:30 EST Appointment [facility] Hematology & Oncology [facility] [address] [place], [place] [phone] 05/04/2024 12:00 EST Appointment [facility] Hematology & Oncology [address] [phone] 06/12/2024 13:00 EST Appointment [facility] Radiology CT - [facility] [address] [place], [place] [phone] documented as of this encounter Procedures Procedure Name Priority Date/Time Associated Diagnosis Comments CYTOPATHOLOGY Routine 06/27/2000 0:00 EST documented in this encounter Results * CYTOPATHOLOGY (06/27/2000 0:00 EST) Pathology Report: CYTOPATHOLOGY REPORT Reports generated via electronic interface contain original data; however they are lacking the format of the original report. Caution should be taken when reading/interpreti ng unformatted reports. Name: ? PARDEEP SMITH ? Accession #: ? [id number] : ? 1960 (Age: 39) ??F ?Collect Date: ? 06/27/2000 Location: ? [facility] ? Receive Date: ? 06/28/2000 Provider: ?NANDINI YUEN MD Copy to: ? Specimen/Source: ?ThinPrep Pap Test, Cervix/Endocervix Last Menstrual Period: ? 05/22/00 Hormonal/Contracep tive Status: ? Hormone Replacement Therapy ? SPECIMEN ADEQUACY ? Satisfactory for evaluation. GENERAL CATEGORIZATION ? Within Normal Limits ? Document reviewed and electronically signed by: ? CODIE Thompson(ASCP) ? Report Date: ??06/29/2000 10:04 End of Report [facility] 06/27/2000 06/28/2000 Nandini Yuen MD PATHOLOGY ORDERAB LES [facility] [address] [place] [address] documented in this encounter Visit Diagnoses Not on filedocumented in this encounter Additional Health Concerns Infection Onset Date Last Indicated Resolved Time R/O COVID-19 12/12/2023 12/12/2023 12/12/2023 15:3 5 EDT R/O COVID-19 01/08/2024 01/08/2024 01/08/2024 18:2 6 EDT R/O COVID-19 01/16/2024 01/16/2024 01/16/2024 17:5 0 EDT documented as of this encounter
--- OUTSIDE RECORDS SUMMARY | 2024-03-20 15:18 | XMS_ITS | Encounter Summary ---
Author Organization [facility] Address [address] [place] [address] Care Team Providers Care Water Reclamation Systems Operator Name Role Phone Unavailable Primary Care Provider Unavailabl e Encounter Details Date Type Department Care Team (Latest Contact Info) Description 03/23/2000 18:28 EDT Hospital Encounter [facility] Emergency Department - [address] [address] Emergency, MD Keegan Discharge Disposition: Home or [...] EDT Appointment [facility] Interventional Radiology Unit [address] [place] [address] [phone] 04/02/2024 15:15 EDT Office Visit [facility] Surgical Oncology - [address] [phone] Adolfo Carreno MD 111 [facility], Level 2 [place] [phone] 04/05/2024 9:30 EDT Telemedicine [facility] Palliative Care Services [address] [place] [phone] Chichi Woods MD [address] [place] [phone] 04/11/2024 15:00 EDT Telemedicine [facility] Hematology & Oncology [address] 325571 Alisson Carreon MD [address] [place] [address], Level 2 [place] [phone] 04/13/2024 13:30 EDT Appointment [facility] Hematology & Oncology [address] 165911 04/13/2024 14:00 EDT Appointment [facility] Hematology & Oncology [address] 728021 04/16/2024 10:00 EST Telemedicine [facility] Palliative Care Services [address] [place] [address] 154191 Chichi Woods MD [address] [place] [phone] 04/24/2024 9:00 EST Appointment [facility] Radiology CT Outpatient - [address] [address] 04/24/2024 11:00 EST Appointment [facility] Breast Imaging - [address] [phone] 04/27/2024 12:00 EST Appointment [facility] Hematology & Oncology - [address] [phone] 05/02/2024 15:00 EST Telemedicine [facility] Hematology & Oncology - [address] [address] Alisson Carroen MD 111 [facility], [facility], Level 2 [place] [phone] 05/04/2024 10:15 EST Ancillary Procedure [facility] Cardiology - [address] [place], [place] [phone] 05/04/2024 11:30 EST Appointment [facility] Hematology & Oncology - [facility] [address] [place], [place] [address]63[address] 05/04/2024 12:00 EST Appointment [facility] Hematology & Oncology [address] 386681 06/12/2024 13:00 EST Appointment [facility] Radiology CT - [facility] [address] [place], [place] 238641 documented as of this encounter Visit Diagnoses Not on filedocumented in this encounter
--- OUTSIDE RECORDS SUMMARY | 2024-03-20 15:18 | XMS_ITS | Encounter Summary ---
Author Organization [facility] Address [address] [place] [address] Care Team Providers Care Spark Plug Tester Name Role Phone Unavailable Primary Care Provider Unavailabl e Encounter Details Date Type Department Care Team (Latest Contact Info) Description 05/21/1999 11:33 EST - 05/21/1999 11:59 EST Hospital Encounter [facility] - Other [address] [place] [address] Maria Fernanda Red MD Unknown, Provider, Discharge [...] [facility] Interventional Radiology Unit [address] [place] [address] 04/02/2024 15:15 EDT Office Visit [facility] Surgical Oncology - [facility] [address] [place] [address] Adolfo Carreno MD 111 [facility], [facility], Level 2 [place] [phone] 04/05/2024 9:30 EDT Telemedicine Health system - [facility] Palliative Care Services [address] [place] [address] [phone] Chichi Woods MD [address] [place] [phone] 04/11/2024 15:00 EDT Telemedicine [facility] Hematology & Oncology - [address] [phone] Alisson Carreon MD [address] [place] [address] Level 2 [place] [phone] 04/13/2024 13:30 EDT Appointment [facility] Hematology & Oncology - [address] [address] 04/13/2024 14:00 EDT Appointment [facility] Hematology & Oncology [address] [address] 04/16/2024 10:00 EST Telemedicine [facility] Palliative Care Services [address] [place] [address] [phone] Chichi Woods MD [address] [place] [phone] 04/24/2024 9:00 EST Appointment [facility] Radiology CT Outpatient - [address] [phone] 04/24/2024 11:00 EST Appointment [facility] Breast Imaging - [address] [address] 04/27/2024 12:00 EST Appointment [facility] Hematology & Oncology - [address] 514541 05/02/2024 15:00 EST Telemedicine [facility] Hematology & Oncology [address] [address] Alisson Carreon MD 111 [facility], [facility], Level 2 [place] [phone] 05/04/2024 10:15 EST Ancillary Procedure [facility] Cardiology - [address] [place] [address] 05/04/2024 11:30 EST Appointment [facility] Hematology & Oncology [address] 371711 05/04/2024 12:00 EST Appointment [facility] Hematology & Oncology [address] 075701 06/12/2024 13:00 EST Appointment [facility] Radiology CT - [address] [phone] documented as of this encounter Procedures Procedure Name Priority Date/Time Associated Diagnosis Comments HOLD Routine 05/21/1999 19:19 EST ESTRADIOL, ADULTS Routine 05/21/1999 19: 19 EST HIV 1/2 ANTIGEN AND ANTIBODY, 4TH GENERATION Routine 05/21/1999 19:19 EST TSH Routine 05/21/1999 19:19 EST LH Routine 05/21/1999 19:19 EST FSH Routine 05/21/1999 19:19 EST documented in this encounter Results * TSH (05/21/1999 19:19 EST) TSH 1.50 0.35 - 5.50 uIU/ml [facility] 05/21/1999 19:1 9 EST 05/21/1999 19:19 EST Maria Fernanda Red MD CHEMISTRY & BLOOD GA S ORDERABLES Performing Organization Address [facility] Co de Phone Number [facility] [address] [place] [address] * LH (05/21/1999 19:19 EST) LH 59.7 mIU/ml [facility] Comment: Follicular: 1-18 Mid-Cycle Peak: 15-80 Luteal: 0.5-18 Postmenopausal: 12-55 Note new reference range. 05/21/1999 19:1 9 EST 05/21/1999 19:19 EST Maria Fernanda Red MD CHEMISTRY & BLOOD GA S ORDERABLES Performing Organization Address [facility] de Phone Number [facility] [address] [place] [address] * HOLD (05/21/1999 19:19 EST) Hold EDTA for hematology will be discarded after 48 hours, differential not available after 12 hours. [facility] 05/21/1999 19:1 9 EST 05/21/1999 19:19 EST Maria Fernanda Red MD CHEMISTRY & BLOOD GA S ORDERABLES Performing Organization Address [facility] de Phone Number [facility] [address] [place] [address] * HIV ANTIBODY (MANDEEP) (05/21/1999 19:19 EST) HIV 1/2 Antibody NONREACT. NR [facility] 05/21/1999 19:1 9 EST 05/21/1999 19:19 EST Maria Fernanda Red MD IMMUNOLOGY AND SEROL OGY ORDERABLES Performing Organization Address [facility] Co de Phone Number [facility] [address] [place] [address] * FSH (05/21/1999 19:19 EST) FSH 107.5 mIU/ml [facility] Comment: Follicular: 2-11 Mid-Cycle Peak: 3.4-35 Luteal: 1-9 Postmenopausal: 25-120 Note new reference range. 05/21/1999 19:1 9 EST 05/21/1999 19:19 EST Maria Fernanda Red MD CHEMISTRY & BLOOD GA S ORDERABLES Performing Organization Address [facility] de Phone Number [facility] [address] [place] [address] * ESTRADIOL (05/21/1999 19:19 EST) Estradiol <10 pg/ml [facility] Comment: By day in cycle relative to LH peak: Follicular Phase: -12 days: 11-69 ?-4 days: 63-165 Midcycle ?-1 day: 146-526 Luteal Phase ?+2 days: 33-150 ?+6 days: 68-196 ? +12 days: 36-133 Postmenopausal: ??0-37 05/21/1999 19:1 9 EST 05/21/1999 19:19 EST Maria Fernanda Red MD CHEMISTRY & BLOOD GA S ORDERABLES Performing Organization Address [facility] de Phone Number [facility] [address] [place] [address] documented in this encounter Visit Diagnoses Not on filedocumented in this encounter
--- NOTE | 2024-03-20 16:14 | HPE_ITS ---
Date of service: 03/20/24 Time of Service: 16:14 Assessment and Plan Assessment and plan (1) Syncope: Status: Chronic Assessment and plan: Initial reported syncopal episode at home today while struggling to have a bowel movement the patient had been constipated for 5 days. The patient fell off the toilet and hit her forehead on the ground; suspecting vasovagal episode. Second syncopal episode with loss of consciousness necessitating oxygen requirement happened again while attempting to go to the bathroom in the emergency room. No reported head strike at the time. Now on telemetry Bedrest tonight Syncopal episode most likely d/t volume depletion on IV crystalloid (2) LOLITA (acute kidney injury): Status: Acute Assessment and plan: Most likely prerenal from decreased volume status with creatinine 1.6 from baseline 0.7 and BUN 84 from a previous reading of 24 Continue IV fluids: Normal saline at 100 cc/ hour BMP in the morning (3) Hyponatremia: Status: Acute Assessment and plan: Most likely due to hypovolemia with poor oral intake Sodium 129 now on IV hydration with NS at 100 cc an hour as per LOLITA point BMP in AM (4) Acute hypoxic respiratory failure: Status: Acute Assessment and plan: New oxygen requirement of 2 L status post syncopal episode with unresponsiveness in the ED, most likely related to vasovagal response while attempting going to go to the bathroom; resolved with oxygen supplementation. (5) Leukocytosis: Status: Acute Assessment and plan: WBC 16 without fever, but tachycardic in the ED. Leukocytosis might have been related to the use of dexamethasone last taken on Tuesday. Tachycardia may have been related to physiologic response to low volume status. Sepsis considered but is unlikely at this time but blood cultures were drawn and pending . (6) Hyperkalemia: Status: Acute Assessment and plan: K 5.5 in the setting of LOLITA, EKG without ectopies Will give 1 dose of Lokelma and reevaluate in the morning (7) Fall: Status: Acute Assessment and plan: Ongoing weakness, might be related to low fluid volume status and vasovagal response. Carrying 12 Bedrest tonight Fall precautions Considering physical therapy consult (8) Hx pulmonary embolism: Status: Acute Assessment and plan: On Eliquis (9) History of malignant neoplasm of breast: Status: Acute Assessment and plan: History of breast cancer with metastasis to the liver with some bone lesions reported by . The patient is being followed and getting chemotherapy infusion at [facility] [place] [facility]. Dr. Bartons contacted oncology at [facility] but the patient was declined due to capacity. -Consider consulting with oncology at [facility] if no improvement Discussed with Dr. Farias History of Present Illness History of Present Illness Chief Complaint: Weakness, fall while on anticoagulation Narrative: This 64-year-old female with a past medical history of metastatic breast cancer undergoing chemotherapy followed by [facility] [place] [facility], pulmonary emboli on Eliquis, past history of resolved jirovocii pneumonia presented today in the ED at [facility] status post fall at home. The patient reporting falling from the toilet and hitting her left forehead without loss of consciousness. Workup in the ED included head CT which was negative for bleed, creatinine was 1.6 with a baseline of 0.7 BUN was 89 with a previous level of 24, sodium was 129 and potassium 5.5. EKG completed in the ED showed sinus rhythm heart rate 82 without ectopies or significant ischemia or injury. Leukocytosis noted with WBC of 16.95, and blood cultures were obtained and pending. In the ED the patient was treated with 1 L of crystalloid. During that time to ambulate to the bathroom the patient had another orthostatic episode and became unresponsive with new oxygen requirement. The ED provider consulted [facility] [place] [facility] oncology but the patient was declined due to capacity. The hospitalist was consulted and the patient admitted to the medical surgical floor for evaluation and management of LOLITA, dehydration, hyponatremia, hyperkalemia, orthostasis and leukocytosis. The patient has a history of ascites but none seen at this time the SBP was not an immediate possibility at this time. When met in the ED, the patient was tremulous and reported ongoing tremors worsening the past few days. She also reported completing her last dose of dexamethasone on Tuesday. The patient denied dizziness while lying in the stretcher but lightheadedness upon standing. The patient which denies nausea vomiting diarrhea or dysuria. The patient reported ongoing constipation and has not had not used her bowel management medicine as usual. The patient confirmed that she would not want CPR and short-term intubation during hospitalization; thus the patient was full code. Review of Systems All systems reviewed & are unremarkable except as noted in HPI and below PFSH All Active Problems (Updated 03/21/24 @ 12:43 by Annalisa Shahid APRN) History of malignant neoplasm of breast (Acute) Acute hypoxic respiratory failure (Acute) Hyponatremia (Acute) Hyperkalemia (Acute) Leukocytosis (Acute) Hx pulmonary embolism (Acute) Syncope (Chronic) Fall (Acute) Anticoagulated (Acute) Breast cancer metastasized to multiple sites (Acute) LOLITA (acute kidney injury) (Acute) Social History Smoking risk assessment performed?: No Alcohol Intake: never Housing: house Do you feel safe at home: Yes Do you feel safe in your relationship?: Yes Meds Allergies and Home Medications Allergies Allergy/AdvReac Type Severity Reaction Status Date / Time Sulfa (Sulfonamide AdvReac Intermediate Skin Rash Verified 03/20/24 11:51 Antibiotics) adhesive AdvReac Mild Topical Verified 03/20/24 11:51 Irritation Home Medications ?Medication ?Instructions ?Recorded ?Confirmed ?Type apixaban 2.5 mg tablet (Eliquis) 2.5 mg PO BID 03/20/24 03/20/24 History furosemide 40 mg tablet (Lasix) 40 mg PO DAILY 03/20/24 03/20/24 History gabapentin 300 mg capsule 300 mg PO BID 03/20/24 03/20/24 History gabapentin 600 mg tablet 600 mg PO QHS 03/20/24 03/20/24 History spironolactone 100 mg tablet 400 mg PO DAILY 03/20/24 03/20/24 History venlafaxine 75 mg capsule,extended 75 mg PO DAILY 03/20/24 03/20/24 History release 24 hr (Effexor XR) Exam Narrative Exam Narrative: Constitutional Patient is in the stretcher, cachectic appearing, tremulous and slightly anxious, verbal answers are delayed but adequate. HENMT: Facial structures with normal appearance but emaciated old Eyes: Well aligned Neuro:alert and oriented x 3, nonfocal but fine motor skills with hands are difficult with tremors Resp:Clear lung bilaterally but increase work of breathing with movement Cardio: EKG in the ED showed sinus rhythm heart rate 82 regular rhythm, S1, S2, no murmur, bilateral radial and dorsalis pedis pulses are positive, palpable GI: Abdomen is not distended, soft and non tender, bowel sounds are present : Negative Costovertebral angle tenderness, no bladder distension Back/spine/Pelvis: No back tenderness, normal alignment Integumentary: Scattered bruising and scabbing on limbs; left forehead closed ecchymosis Extremities: Generalized weakness Psych: RASS 0, anxious mood and affect. Results Labs 03/21/24 05:15 03/21/24 05:15 Labs: Laboratory Results - last 24 hr 03/20/24 03/20/24 12:58 14:30 WBC 16.95 H RBC 4.17 Hgb 14.4 Hct 41.2 MCV 99 H MCH 34.5 H MCHC 35.0 RDW 14.7 H Plt Count 280 MPV 10.2 Immature Gran % 0.6 Neutrophils % 94.2 Lymphocytes % 4.1 Monocytes % 1.0 Eosinophils % 0.0 Basophils % 0.1 Nucleated RBC % 0.0 Absolute Neutrophils 15.97 H Absolute Lymphocytes 0.69 L Absolute Monocytes 0.17 Absolute Eosinophils 0.00 Absolute Basophils 0.02 PT 10.9 INR 1.1 Sodium 129 L Potassium 5.5 H Chloride 94 L Carbon Dioxide 26.7 Anion Gap 8.3 BUN 84 H* Creatinine 1.6 H Est GFR (CKD-EPI 2020) 36.24 Glucose 176 H Calcium 10.8 H Total Bilirubin 2.73 H AST 67 H ALT 70 H Alkaline Phosphatase 362 H Total Protein 8.1 Albumin 2.9 L Lipase 97 H Urine Color Yellow Urine Clarity Clear Urine pH 6.0 Ur Specific [place] 1.015 Urine Protein Negative Urine Ketones Negative Urine Blood Negative Urine Nitrite Negative Urine Bilirubin Negative Urine Urobilinogen 0.2 Ur Leukocyte Esterase Negative Urine Glucose Negative Last Vital Signs Temp 36.8 C 03/20/24 11:47 Pulse 95 H 03/20/24 11:47 Resp 12 03/20/24 11:47 BP 138/83 03/20/24 11:47 Pulse Ox 98 03/20/24 11:47 Time Spent Time spent with Patient: >75 minutes Time was spent: preparing to see the patient(eg.review tests), obtaining and/or reviewing separately otained hiistory, ordering medications,tests, procedures, referring, communicating with other health care attendant, indepentently interpreting results, counseling the patient and care coordination
--- NOTE | 2024-03-20 18:07 | W.PCEDHO ---
Registration Status: Primary Language: Preferred Language: ED Information & Data Chief Complaint HeadInjury 03/20/24 15:56 Chief Complaint HeadInjury 03/20/24 13:12 Triage Note patient stage 4 breast ca. 03/20/24 11:47 very unsteady due to tx. lost balance and fell striking L forehead, no loc, is on blood thinners. patient very tired/weak due to condition. Has tremors that have gotten much worse. Most Recent Vital Signs Temperature 36.8 C 03/20/24 11:47 Temperature Source Oral 03/20/24 11:47 Pulse 95 H 03/20/24 11:47 Respiratory Rate 12 03/20/24 11:47 Respiratory Effort Normal 03/20/24 15:56 Blood Pressure 138/83 03/20/24 11:47 Blood Pressure Position Sitting 03/20/24 11:47 Pulse Oximetry 98 03/20/24 11:47 Oxygen Delivery Method Room Air 03/20/24 11:47 Oxygen Flow Rate 0 03/20/24 11:47 Pain Level 0 03/20/24 11:47 Allergies Sulfa (Sulfonamide Antibiotics) Adverse Reaction (Intermediate, Verified 03/20/24 11:51) Skin Rash adhesive Adverse Reaction (Mild, Verified 03/20/24 11:51) Topical Irritation Precautions Isolation Standard precaution 03/20/24 15:56 Active Medications Generic Name Dose Route Start Last Admin Trade Name Freq PRN Reason Stop Dose Admin Iohexol 100 ml 03/20/24 14:00 03/20/24 14:00 Omnipaque 350 Mg/Ml 100 Ml Btl IJ 04/19/24 23:59 85 ml DIRECTED ERASMO Administration Sodium Chloride 50 ml 03/20/24 14:15 03/20/24 14:02 Normal Saline - Diluent 50 Ml Vial IJ 50 ml .FOR DI USE ERASMO Administration Diagnostics 03/20/24 03/20/24 03/20/24 Range/Units 16:32 14:30 12:58 WBC 16.95 H (4.4-10.8) 10^3/uL RBC 4.17 (3.93-5.22) 10^6/uL Hgb 14.4 (11.2-15.7) g/dL Hct 41.2 (36.0-46.0) % MCV 99 H (80-95) fL MCH 34.5 H (27.0-33.0) pg MCHC 35.0 (32.0-36.0) % RDW 14.7 H (11.7-14.6) % Plt Count 280 (130-400) 10^3/uL MPV 10.2 (8.0-11.0) fL Immature Gran % 0.6 % Neutrophils % 94.2 % Lymphocytes % 4.1 % Monocytes % 1.0 % Eosinophils % 0.0 % Basophils % 0.1 % Nucleated RBC % 0.0 (0.0-0.3) % Absolute Neutrophils 15.97 H (1.2-6.7) 10^3/uL Absolute Lymphocytes 0.69 L (1.2-3.4) 10^3/uL Absolute Monocytes 0.17 (0.1-0.8) 10^3/uL Absolute Eosinophils 0.00 (0.0-0.7) 10^3/uL Absolute Basophils 0.02 (0.0-0.2) 10^3/uL PT 10.9 (9.1-11.1) sec INR 1.1 (0.9-1.1) Sodium 129 L (136-145) mmol/L Potassium 5.5 H (3.5-5.1) mmol/L Chloride 94 L (98-107) mmol/L Carbon Dioxide 26.7 (21.0-32.0) mmol/L Anion Gap 8.3 (3-11) mmol/L BUN 84 H* (7-18) mg/dL Creatinine 1.6 H (0.55-1.02) mg/dL Est GFR (CKD-EPI 2020) 36.24 (mL/min/1.73m2) Glucose 176 H (74-106) mg/dL Calcium 10.8 H (8.5-10.1) mg/dL Magnesium Pending Total Bilirubin 2.73 H (0.2-1.0) mg/dL AST 67 H (15-37) U/L ALT 70 H (14-59) U/L Alkaline Phosphatase 362 H (46-116) U/L Total Protein 8.1 (6.4-8.2) g/dL Albumin 2.9 L (3.4-5.0) g/dL Lipase 97 H (16-77) U/L Urine Color Yellow (Yellow) Urine Clarity Clear (Clear) Urine pH 6.0 (5-8) Ur Specific [place] 1.015 (1.005-1.025) Urine Protein Negative (Neg-Trace) mg/dL Urine Ketones Negative (Negative) mg/dL Urine Blood Negative (Negative) Urine Nitrite Negative (Negative) Urine Bilirubin Negative (Negative) Urine Urobilinogen 0.2 (Up to 0.2) mg/dL Ur Leukocyte Esterase Negative (Negative) Urine Glucose Negative (Negative) mg/dL 03/20/24 15:25 Blood Culture - Pending Blood 03/20/24 15:15 Blood Culture - Pending Blood Intake and Output - 24 Hour Total 03/20/24 11:40 thru 03/20/24 11:47 Weight 44.906 kg Falls Risk Assessment History of Falls Admit Due to Fall 03/20/24 16:03 Contributing Factors Unstable,Impairments, 03/20/24 16:03 Incontinence Tubes/Lines With any additional score 03/20/24 16:03 Gait Evaluation W/no contributing factors 03/20/24 16:03 Cognition Cognitive impairment 03/20/24 16:03 Fall Total Score 79 03/20/24 16:03 Level of Risk Maximum Risk 03/20/24 16:03 v v v v v v v v v Sending and/or Receiving Nurses: Please use comment section below to note any information pertinent to the patient hand-off not included above. Information / Comments: fell at home, and became faint while OOB to BR in ED. Being admitted to ICU as MS overeugene. Report received from:Edith Pineda RN
[2024-03-20 19:18] LABS: Magnesium 2.6 mg/dL (1.8-2.4)
--- NOTE | 2024-03-20 22:15 | RT.EKG_ITS ---
APPROVED REPORT Exam: Resting ECG Reason for Exam: Trending ST elevation on 5-lead Patient Location: I HR:97 bpm ECG Measurements Heart Rate 97 AXIS MT 149 P 75 QRSd 85 QRS 48 QT 346 T 81 QTc 440 Conclusion Sinus rhythm...normal P axis, V-rate 50- 99 Right atrial enlargement...P>0.25mV 2 lds or<-0.24mV aVR/aVL Otherwise normal ECG
[2024-03-20] MEDS: Normal Saline 1,000 ML 100 ML IV (23:00)
[2024-03-20] MEDS: Normal Saline Flush 10 ML SYR IVP (23:23)
[2024-03-21] VITALS (29 sets, daily range): BP systolic 136–179; BP diastolic 48–122; PULSE 89–102; RESP 8–27; TEMP 36.3–37.1; O2SAT 95–98
[2024-03-21 05:26] LABS: Abs Immature Grans 0.07 10^3/uL (0.0-0.06); Absolute Basophil Count 0.02 10^3/uL (0.0-0.2); Absolute Lymphocyte Count 0.69 10^3/uL (1.2-3.4); Absolute Monocyte Count 0.06 10^3/uL (0.1-0.8); Absolute Neutrophil Count 11.22 10^3/uL (1.2-6.7); Basophils % 0.2 %; HGB 13.6 g/dL (11.2-15.7); Immature Grans % 0.6 %; Lymphocytes % 5.7 %; MCH 34.9 pg (27.0-33.0); MCHC 34.9 % (32.0-36.0); MCV 100 fL (80-95); MPV 10.4 fL (8.0-11.0); Monocytes % 0.5 %; Platelet Count 264 10^3/uL (130-400); RDW 14.8 % (11.7-14.6); WBC 12.06 10^3/uL (4.4-10.8)
[2024-03-21 05:43] LABS: Anion Gap 12.4 mmol/L (3-11); CO2 27.6 mmol/L (21.0-32.0); CREATININE 1.6 mg/dL (0.55-1.02); Calcium 9.9 mg/dL (8.5-10.1); Chloride 100 mmol/L (98-107); Estimated GFR 36.24 (mL/min/1.73m2); Glucose 172 mg/dL (74-106); Potassium 4.3 mmol/L (3.5-5.1); Sodium 140 mmol/L (136-145)
[2024-03-21 05:51] LABS: BUN 85 mg/dL (7-18)
--- NOTE | 2024-03-21 08:39 | PDOC.CMIN ---
Date of service: 03/21/24 Time of Service: 08:39 Care Management Initial Assmt Initial Assessment Reason for Hospitalization: Sepsis, LOLITA Functional Status/Living Situation Patient Presentation: Sunshine appears to be sleeping in a recliner, in front of her room window. She is receiving IV ABX and being closely monitored in the ICU. She is accompanied by her Nitish, who is very supportive and speaks for her since she has been less responsive this afternoon. He is concerned with her nutrition and the level of care she is receiving here at [facility]. Nitish feels strongly that she is deteriorating and feels that it is in her best interest to be transferred to a [facility] where her oncology team is located. Hospitalist Annalisa has been in close contact with [facility]; transfer was declined. This CM-RN and ICU Director-SHELLEY Tam spent 2 hours with Nitish answering questions, explaining transfer limitations and validated his efforts to advocate for his . During this interaction an flask cleaner from [facility] called Nitish and explained to him that they are consulted and advised him that transfer to [facility] is not indicated at this time because Sunshine is being adequately treated for an infection at this level of care and the treatment being provided aligns with their recommendations. After the phone call Nitish acknowledges that he feels somewhat better about Sunshine remaining at [facility]. Town of Residence: [place], [place] Resides with: Spouse ( Nitish) Instrumental Activities of Daily Living (ADLs): Independent Medications Medication Management: No Issues/Barriers identified Physical Functioning/Mobility Assistive Device: None Advance Directives Advance Directives: Do you have an Advance Directive: AD On File at [facility]: N 03/20/24 14:07 Date Asked 03/20/24 03/20/24 14:07 AD Date Reviewed COLST On File at [facility] COLST Date Scanned Code Status Resuscitation Status Full Code Portal Pt does not currently have a portal and education provided: Yes Insurance Coverage/Financial Issues Insurance: [facility] Compete Health Plans [facility] Care Team Visit Care Team Role Provider Type Unknown Unknown Primary Care Provider STAFF PHYSICIAN Bambi Coy MD Emergency Provider [facility] STAFF PHYSICIAN Kali Farias MD Admit Provider [facility] STAFF PHYSICIAN Attending Provider Discharge Potential Discharge Needs: PT Evaluation, PCP F/U Appt and Other ([facility] Oncology) Anticipated Barriers to Discharge: Medical Status Patient/Family Education Needs: Review discharge instructions, discuss Ask Me Three Transportation: Private vehicle Plan: Sunshine is being closely monitored and treated with IV ABX in the ICU. [facility] is consulted. Anticipate Sunshine will discharge home with New services, if needed when medically ready. Pt will follow up with her community providers and discharge plan of care as instructed. Family will provide transportation. May benefit from a palliative consult. CM will follow. PFSH All Active Problems (Updated 03/21/24 @ 15:22 by Annalisa Shahid APRN) Encephalopathy (Acute) Sepsis (Acute) Gram-positive cocci bacteremia (Acute) History of malignant neoplasm of breast (Acute) Acute hypoxic respiratory failure (Acute) Hyponatremia (Acute) Hyperkalemia (Acute) Leukocytosis (Acute) Hx pulmonary embolism (Acute) Syncope (Chronic) Fall (Acute) Anticoagulated (Acute) Breast cancer metastasized to multiple sites (Acute) LOLITA (acute kidney injury) (Acute) Social History Smoking risk assessment performed?: No Alcohol Intake: never Housing: house Do you feel safe at home: Yes Do you feel safe in your relationship?: Yes SDOH(Care Management) Screening Will the Patient Participate in the Screening?: Yes Do you worry about having a steady place to live?: yes Problems where you live: no known problems In the past 12 months, have you had to go without electric, gas, oil or water in your home?: no Have you or anyone in your house had to go without enough food to eat?: no Has lack of transportation kept you from medical appointments or from doing things needed for daily living?: no Has anyone in your support network made you feel unsafe for any reason?: no Social Determinants of Health Comments(SDOH Details): independently wealthy with all the amenities, home on the [place], helicopter pad, jet... per Health Related Social Needs Health related social needs: housing instability, housed, with risk of homelessness(Z59.811) Health related social needs details: none
[2024-03-21] MEDS: Normal Saline 1,000 ML 100 ML IV (09:36)
[2024-03-21] MEDS: Normal Saline Flush 10 ML SYR IVP (09:37)
--- NOTE | 2024-03-21 09:50 | W.PM.PROGNOT ---
Date of Service Date of service: 03/21/24 Time of Service: 09:50 Assessment and Plan Assessment and plan (1) Sepsis: Status: Acute Assessment and plan: WBC >12 still was 16 on admission; HR > 90 with probable source of GPC bacteremia ( in clusters) as below, no hypotension Vancomycin loading at 20 mg/kg Pharmacy consult for further dosage and levels ID [facility] consulted and upon discussion with Dr. Ferrell -Agrees managment with Rena until more results, Echo, blood cultures -Blood culture from port drawn -Repeat cultures at 24 s/p vancomycin initiation (2) Gram-positive cocci bacteremia: Status: Acute Assessment and plan: She has show she has gram-positive bacteremia clusters into possible staph in the setting of immonosupression d/t chemotherapy Will start vancomycin IV Pharmacy consult Patient has a port but cultures were drawn from the periphery as per discussion with Brianda Rodriguez form the lab Repeat culture on 03/22 Echocardiogram (3) Syncope: Status: Chronic Assessment and plan: Initial reported syncopal episode at home today while struggling to have a bowel movement the patient had been constipated for 5 days. The patient fell off the toilet and hit her forehead on the ground; suspecting vasovagal episode. Second syncopal episode with loss of consciousness necessitating oxygen requirement happened again while attempting to go to the bathroom in the emergency room. No reported head strike at the time. Now on telemetry Bedrest tonight Syncopal episode most likely d/t volume depletion on IV crystalloid (4) Encephalopathy: Status: Acute Assessment and plan: Patient initially in LOLITA mostly stage II with mild transaminitis, remaining confused and weak despite crystalloid therapy. Will trend liver function and consideration of progression into hepatorenal failure. Ammonia level is 81. Will initiate lactulose orally In the setting of transaminitis , will hold Valtrex home therapy, patient had missed previous day dose (5) LOLITA (acute kidney injury): Status: Acute Assessment and plan: Most likely prerenal from decreased volume status with creatinine 1.6 from baseline 0.7 and BUN 84 from a previous reading of 24 Continue IV fluids: Normal saline at 100 cc/ hour BMP in the morning (6) Hyponatremia: Status: Acute Assessment and plan: Now resolved but most likely due to hypovolemia with poor oral intake Sodium 129 now sodium at 140?will stop normal saline and infuse D5W at 50 cc an hour Repeated sodium again 140 will continue D5W then repeat a BMP at 1800 If at goal will proceed to lactated Ringer's at 100 cc an hour for LOLITA BMP in AM (7) Acute hypoxic respiratory failure: Status: Acute Assessment and plan: Now resolved. This was new oxygen requirement of 2 L status post syncopal episode with unresponsiveness in the ED, most likely related to vasovagal response while attempting going to go to the bathroom (8) Leukocytosis: Status: Acute Assessment and plan: WBC is now 12.05 from 16 on admission, still without fever, but heart rate remains above 90. Leukocytosis initially thought to be related to dexamethasone last taken on Tuesday; and tachycardia may have been related to physiologic response to low volume status. In the setting of positive blood cultures now sepsis is more likely CBC in AM. (9) Hyperkalemia: Status: Acute Assessment and plan: Now resolved, potassium was 5.5 and is now 4.3 (10) Fall: Status: Acute Assessment and plan: Ongoing weakness Physical therapy consult: -Has been refused transfer to patient in recliner during physical therapy -Recommendation for Short-term Snf vs PT based on patient's ability to participate and progress towards goals -Considering OT and speech if no improvement with resolution of encephalopathy Continue fall precautions (11) Hx pulmonary embolism: Status: Acute Assessment and plan: On Eliquis home dose- adjusted (12) History of malignant neoplasm of breast: Status: Acute Assessment and plan: History of breast cancer with metastasis to the liver with some bone lesions reported by . The patient is being followed and getting chemotherapy infusion at [facility]. Dr. Bartons contacted oncology at [facility] [[email or web address]] but the patient was declined due to capacity. -Consult with oncology at [facility] [[email or web address]]: Discussion with Dr. Martínez resulted in the recommendation for immediate transfer. As per discussion this is most likely not tumor lysis syndrome but LOLITA with a component of ATN as creatinine and BUN are slow to improve despite crystalloid therapy moreover calcium level decrease as IV fluid were given. -Recommendation to recontact with oncology if no improvement is seen in the next day or 2. No recommendation for MRI or CT of the head with contrast. -[facility] [[email or web address]] transfer center contacted for bed availability today again.Upon discussion with Dr. Vargas( available from 11AM to 7PM), there are no reason for transfer as managment is adequate. If port cultures were to be positive- transfer to be sought for removal of source ( the port) and the need for a CARMEN, at this time the patient has no cardiac murmur Discussed with Dr. Farias Subjective Subjective Patient reports: still having pain, voiding w/o difficulty and afebrile; denies feels better, tolerating liquids well, tolerating a regular diet, no bowel movement, diarrhea, nausea, vomiting, shortness of breath or fever Exam Narrative Exam Narrative: Constitutional Ill appearing female patient cachectic appearing,less tremulous than prior slightly anxious, encephalopatic appearing, verbal answers remained delayed but adequate. HENMT: Facial structures are emaciated but normal Eyes: Well aligned, PEERLA 7 on ambient light Neuro:alert and oriented x 1-2, non-focal Resp:Clear lung bilaterally Cardio: ST 96 as per tele, regular rhythm, S1, S2, no murmur, bilateral radial and dorsalis pedis pulses are positive, palpable GI: Abdomen is not distended, soft and non tender, bowel sounds are present Integumentary: Scattered bruising and scabbing on limbs; left forehead bruise s is stable Extremities: Generalized weakness Psych: RASS 0, anxious mood and affect. Objective Last Vital Signs Temp 36.2 C L 03/20/24 18:34 Pulse 92 H 03/20/24 18:34 Resp 10 L 03/20/24 18:34 BP 152/67 H 03/20/24 18:34 Pulse Ox 99 03/20/24 18:34 Laboratory Results - last 24 hr 03/20/24 03/20/24 03/21/24 12:58 14:30 05:15 WBC 16.95 H 12.06 H RBC 4.17 3.90 L Hgb 14.4 13.6 Hct 41.2 39.0 MCV 99 H 100 H MCH 34.5 H 34.9 H MCHC 35.0 34.9 RDW 14.7 H 14.8 H Plt Count 280 264 MPV 10.2 10.4 Immature Gran % 0.6 0.6 Neutrophils % 94.2 93.0 Lymphocytes % 4.1 5.7 Monocytes % 1.0 0.5 Eosinophils % 0.0 0.0 Basophils % 0.1 0.2 Nucleated RBC % 0.0 0.0 Absolute Neutrophils 15.97 H 11.22 H Absolute Lymphocytes 0.69 L 0.69 L Absolute Monocytes 0.17 0.06 L Absolute Eosinophils 0.00 0.00 Absolute Basophils 0.02 0.02 PT 10.9 INR 1.1 Sodium 129 L 140 D Potassium 5.5 H 4.3 D Chloride 94 L 100 Carbon Dioxide 26.7 27.6 Anion Gap 8.3 12.4 H BUN 84 H* 85 H* Creatinine 1.6 H 1.6 H Est GFR (CKD-EPI 2020) 36.24 36.24 Glucose 176 H 172 H Calcium 10.8 H 9.9 Magnesium 2.6 H Total Bilirubin 2.73 H AST 67 H ALT 70 H Alkaline Phosphatase 362 H Total Protein 8.1 Albumin 2.9 L Lipase 97 H Urine Color Yellow Urine Clarity Clear Urine pH 6.0 Ur Specific Moro 1.015 Urine Protein Negative Urine Ketones Negative Urine Blood Negative Urine Nitrite Negative Urine Bilirubin Negative Urine Urobilinogen 0.2 Ur Leukocyte Esterase Negative Urine Glucose Negative Time Spent with Patient Time Spent with Patient: >50 minutes Time was spent: preparing to see the patient(eg.review tests), obtaining and/or reviewing separately otained hiistory, ordering medications,tests, procedures, referring, communicating with other health healthcare economics consultant, indepentently interpreting results, counseling the patient and care coordination
[2024-03-21] MEDS: DEXTROSE 5%-WATER 1,000 ML 50 ML IV (10:31)
--- NOTE | 2024-03-21 11:23 | PT.INIE ---
PT Notes Visit Reasons: LOLITA, Leukocytosis, Orthostasis, Dehydration Physical Therapy Inpatient Initial Evaluation Date: 03/21/2024 Referring Doctor: Annalisa Shahid NP PT Orders: PT CONSULT: Safety Consult for D/C Precautions: Fall. Standard. Activity as tolerated. Patient Profile/Admitting Diagnosis: Sunshine is a 63-year-old female with past medical history significant for stage IV breast cancer with metastasis to bone, liver, and lung and is on chemotherapy infusion, pneumocystis jirovecii pneumonia, and on chronic anticoagulation coagulation for PE admitted for management of 5 days of constipation, fall without LOC, LOLITA, leukocytosis, hyponatremia, and acute hypoxic respiratory failure. PMHX: All Active Problems (Updated 03/20/24 @ 16:23 by Bambi Coy MD) Syncope (Chronic) Fall (Acute) Anticoagulated (Acute) Breast cancer metastasized to multiple sites (Acute) LOLITA (acute kidney injury) (Acute) Social History/Home Situation: Lives with in a private home with 2-3 steps to enter. Was independnent with mobilty ADLs prir to admsiion. Equipment Owned/DME: FWW, SPC Subjective: Impaired ability for verbal expression. Able to answer yes/no questions. Nodded head when she was asked if she is in pain or okay to sit on chair. is perturbed about 's acute symptoms during session where she appeared somewhat delirious and highly naxious about moving out of bed. per , has had 2 falls in one month. Objective: General Observation: Highly anxious. Appeared frustrated that she is not able to express self well as she used to. Telemetry monitoring in place. Central line in place. On oxygen supplementation via NC. Mental Status: Alert and but unable to verbalize responses, able to answer yes/no questions only Pain: Grimacing, moaning/groaning when moved Vital Signs: Closely monitored via tele ROM: Right Upper Extremity: Grossly WFL Left Upper Extremity: Grossly WFL Right Lower Extremity: Grossly WFL Left Lower Extremity: Grossly WFL Strength: Right Upper Extremity: Grossly 3/5 Left Upper Extremity: Grossly 3/5 Right Lower Extremity: Grossly 3/5 Left Lower Extremity: Grossly 3/5 Bed Mobility/Transfers: Maximal cueing provided for use of B hands as needed for support, movement sequence, AD management, and posture to reduce fall risk and minimize pain report Supine to sit moderate assist of 2 Sit to supine moderate assist of 2 Sit to stand moderate assist of 2 Stand to sit moderate assist of 2 Bed to bedside commode moderate assist of 2 Bedside commode to bed moderate assist of 2 Bed to reclining chair moderate assist of 2 Reclining chair to bed moderate assist of 2 Gait: Unable due to patient's mental status and safety awareness Balance: Static Sitting: Fair Dynamic Sitting: Poor Static Standing: Poor Dynamic Standing: Poor Special Tests: Mobility Limitations Standardized Measure [facility] AM-PAC 6 clicks Basic Mobility Inpatient Short Form: Raw Score: 10 CMS Score: 77% deficit Informed Consent/Education: Patient was instructed in purpose of PT consult and plan of care. Agreeable to proceed with established PT POC to achieve personal goals. ASSESSMENT: Encephalopathic from admitting diagnoses, only able to respond to yes or no questions after a repetition or two. Very weak and altered, highly anxious to be moved, calmed down when offered to do transfer. PT pattempted to provide moderate assistance and cueing for safety for as patient becomes anxious and panicky if is not present during session. Unable to verbally express self, may benefit from speech therapy. Was independent with self-care and dressing before admission, may benefit from OT evalaution. Patient presents with clinical signs and symptoms consistent with current/admitting diagnoses that have resulted to mobility limitations, gait instability, generalized weakness, and overall ADL decline as demonstrated by the following impairment level findings: 1. Decreased strength to B UE/LE major muscle groups 2. Impaired sitting/standing balance 3. Impaired activity tolerance 4. Limitation of joint range of motion in B UE/LE joints due to weakness and altered mental status 5. Altered mental status Impairments are contributing to the following functional limitations: 1. Decline in bed mobility skills 2. Decline in transfer skills 3. Difficulty with ambulation without assistive device and physical assistance 4. Increased completion time for mobility ADL performance 5. Increased risk for falls 6. Difficulty with managing steps alone safely Patient is assessed as a 85450 high complexity based on the following: History: 63-year-old female with past medical history as indicated above Examination: Demonstrable impairment in strength, balance, and mobility level with underlying impairments and functional limitations as exhibited above as well as deficit score of 77% utilizing the [facility] Mobility Inpatient Short Form Presentation: Evolving Decision Makin high complexity Goals: Goals X1 week 1. Supine-Sit independent 2. Sit-Supine independent 3. Sit-Stand independent 4. Stand-Sit independent with FWW 5. Bed-Chair independent with FWW 6. Chair-Bed independent with FWW 7. Independent gait on level surface with use of FWW for at least 150 feet without report of pain nor dyspnea 8. Independent stair negotiation while holding onto B rails for at least 6 steps without report of pain nor dyspnea 9. Independent with home exercise program 10. Good static and dynamic standing balance/tolerance Plan of Care/Treatment Plan: 1-2x/day, 7 days/week x 1 week. Plan of care has been reviewed with the PUMP HOUSE ENGINEER providing the service under Physical Therapy direction. Initiate Physical Therapy intervention for pain management as needed, strengthening, bed mobility, transfers, gait, stairs, balance training, and use of assistive device. DISCHARGE RECOMMENDATIONS: [] Home with no services [] [] Home with services [specify] [] Home with outpatient PT [] [] SNF for continued rehabilitation [] [] Preparing Box Tender Care [] [] SNF versus LTC based on ability to participate and progress [] [X] Short-term Snf vs PT based on patient's ability to participate and progress towards goals TREATMENT CODE/TIME: 70816 x 37 minutes for 1 unit (11:23-12:00). Thank you for the opportunity to participate in the care of this patient. Svetlana Chua PT, DPT, CLT [facility] [place], [place]
[2024-03-21] MEDS: HYDROmorphone 2 MG/ML SYR IVP (12:27)
[2024-03-21] MEDS: Bisacodyl 10 MG SUPP PR (12:27)
[2024-03-21] MEDS: Venlafaxine 75 MG CAPCR PO (12:28)
[2024-03-21] MEDS: Apixaban 2.5 MG TAB PO (12:28)
[2024-03-21] MEDS: Polyethylene Glycol 3350 17 GM PACKET PO (12:29)
[2024-03-21 12:32] LABS: Sodium, Urine 24 mmol/L
[2024-03-21 12:34] LABS: Ammonia 81 umol/L (11-32)
--- NOTE | 2024-03-21 12:39 | PHA.REVIEW2 ---
Pharmacy Admission Review Admission Clinical Review Admission Pharmacy Review: Acute hypoxic respiratory failure (Acute) Hyponatremia (Acute) Hyperkalemia (Acute) Leukocytosis (Acute) Hx pulmonary embolism (Acute) Fall (Acute) LOLITA (acute kidney injury) (Acute) Sulfa (Sulfonamide Antibiotics) Adverse Reaction (Intermediate, Verified 03/20/24 11:51) Skin Rash adhesive Adverse Reaction (Mild, Verified 03/20/24 11:51) Topical Irritation Resuscitation Status Full Code Height 5 ft 2 in Weight 44.3 kg Comments Comments/Follow Ups: Monitor renal function and possible addition of antibiotic(s) Pharmacy Admission Review Renal Dosing Renal Dosing: BUN 85 mg/dL (7-18) H* 03/21/24 05:15 Creatinine 1.6 mg/dL (0.55-1.02) H 03/21/24 05:15 Medications needing adjustments: Reviewed (CrCl 24.65 mL/min, BUN increased from 84) List of meds needing interventions: Current medications are okay Anticoagulation Anticoagulation: Hgb 13.6 g/dL (11.2-15.7) 03/21/24 05:15 Hct 39.0 % (36.0-46.0) 03/21/24 05:15 Plt Count 264 10^3/uL (130-400) 03/21/24 05:15 INR 1.1 (0.9-1.1) 03/20/24 12:58 Creatinine 1.6 mg/dL (0.55-1.02) H 03/21/24 05:15 DVT Prophylaxis: Reviewed Medications: Apixaban (2.5mg PO BID, SCr > 1.5 + weight < 60kg ) Relevant Labs Relevant Labs: Sodium 140 mmol/L (136-145) D 03/21/24 05:15 Potassium 4.3 mmol/L (3.5-5.1) D 03/21/24 05:15 Chloride 100 mmol/L (98-107) 03/21/24 05:15 Magnesium 2.6 mg/dL (1.8-2.4) H 03/20/24 12:58 Electrolytes, C-Reactive P, ESR: Reviewed (Repeat labs pending, glucose 172 at 0515) Cardiac Review BP, HR, EF%: Reviewed (No VS for today, BP was elevated last night 152/67 at 1834 with HR of 92) QTc Review QTc: Reviewed (422 from 03/20/24) IV to PO Switch IV Medications: Reviewed Home Meds Home Med List reviewed: Intervened Relevent Home Meds Not ordered & why?: furosemide and spironolactone - may be on hold due to patients volume depletion but it is not specified in H+P. Reached out to provider to confirm. Per provider they are on hold for LOLITA which has not yet resolved. Current Meds Current Medication Order Review: Intervened Comments: Changed gabapentin order from 300mg capsules to 100mg capsules - dose is 200mg Order was put in yesterday evening for Lokelma x 1 but was not given, patient unable to swallow Pharmacy Antibiotic Review Relevant Labs: WBC 12.06 10^3/uL (4.4-10.8) H 03/21/24 05:15 Microbiology 03/20/24 15:15 Blood Culture - Preliminary Blood Gram Positive Cocci 03/20/24 15:25 Blood Culture - Preliminary Blood Gram Positive Cocci Comments: Current no antibiotics. Blood culture came back this afternoon as growing gram positive cocci. Reached out to provider to make sure they are aware. Comments Comments/Follow Ups: Monitor renal function and possible addition of antibiotic(s)
--- NOTE | 2024-03-21 14:16 | CHAPLAIN ---
Sunshine was mostly sleeping when I visited. Her , Nitish, said she opens her eyes from time to time, and that she is very tired and still dealing with pain. I explained my role and offered support. Nitish said I could pray for them. Right now he is angry at God, he said. I will continue to visit.
[2024-03-21 15:05] LABS: Anion Gap 9.9 mmol/L (3-11); CO2 28.1 mmol/L (21.0-32.0); CREATININE 1.4 mg/dL (0.55-1.02); Calcium 9.2 mg/dL (8.5-10.1); Chloride 102 mmol/L (98-107); Estimated GFR 42.54 (mL/min/1.73m2); Glucose 182 mg/dL (74-106); Potassium 4.7 mmol/L (3.5-5.1); Sodium 140 mmol/L (136-145)
[2024-03-21 15:08] LABS: BUN 83 mg/dL (7-18)
[2024-03-21] MEDS: Lactulose 20 GM/30 ML CUP PO (15:41)
[2024-03-21] MEDS: HYDROmorphone 2 MG/ML SYR 0.5 MG IVP (17:21)
--- NOTE | 2024-03-21 17:56 | CHAPLAIN ---
I took a prayer shawl up to Sunshine this evening. She was still very tired. Her nurse, Caro, was unable to wake Sunshine up enough to give her a med she was trying to get Sunshine take orally with a syringe. Sunshine's Nitish, said today is their 13th anniversary. They were on a five day fall foliage trip, staying at the [facility] in [place] and then going to [place] for a concert. They live on [address], near [place]. Nitish share about they met and their destination elopment to [place] to get .
[2024-03-21 18:37] LABS: BUN 78 mg/dL (7-18); CREATININE 1.3 mg/dL (0.55-1.02); Calcium 9.3 mg/dL (8.5-10.1); Chloride 102 mmol/L (98-107); Estimated GFR 46.49 (mL/min/1.73m2); Glucose 193 mg/dL (74-106); Potassium 4.7 mmol/L (3.5-5.1); Sodium 141 mmol/L (136-145)
[2024-03-21 21:51] LABS: Osmolality, Urine 580 mOsm/kg (150-1150)
[2024-03-21 22:34] LABS: Vancomycin, Random 17.2 ug/mL
[2024-03-21] MEDS: Na Phosphate Enema-Adult 133 ML BTL PR (23:00)
[2024-03-22] VITALS (36 sets, daily range): BP systolic 117–156; BP diastolic 43–84; PULSE 92–109; RESP 8–31; TEMP 36.3–36.6; O2SAT 89–99
--- NOTE | 2024-03-22 | DI.CT_ITS ---
Exam(s) CT HEAD WO EXAM: CT HEAD WO CLINICAL HISTORY: Acute change cognition and strength S/P fall. TECHNIQUE: Imaging Protocol: Axial computed tomography images with coronal and sagittal reformatted images were created and reviewed COMPARISON: CT CT HEAD WO from 03/20/2024 FINDINGS: There are no skull fractures. There is no fluid in the visualized paranasal sinuses. There is no evidence of intracranial hemorrhage, mass effect, or shift of midline structures. There are no extra-axial fluid collections. The ventricles are not enlarged or shifted and there is no blo od within the ventricular system nor within the basal cisterns. IMPRESSION: No acute intracranial findings on this noninfused CT scan of the brain. RADIATION DOSE DELIVERED: 810.52mGy.cm Total DLP DATA REPOSITORY: All CT scans at this facility are submitted to the National Radiology Data Registry (NRDR) Dose Index Registry (DIR) with the [employer] (ACR). RADIATION OPTIMIZATION: All CT scans at this facility use at least one of these dose optimization te chniques: automated exposure control; mA and/or kV adjustment per patient size (includes targeted exa ms where dose is matched to clinical indication); or iterative reconstruction.
[2024-03-22] MEDS: HYDROmorphone 2 MG/ML VIAL 0.5 MG IVP (00:04)
[2024-03-22] MEDS: Normal Saline Flush 10 ML SYR IVP ×2 (00:04→09:49)
--- NOTE | 2024-03-22 01:18 | DI.VRAD_ITS ---
PROCEDURE INFORMATION: Exam: CT Head Without Contrast Exam date and time: 03/22/2024 12:50 AM Age: 63 years old Clinical indication: Other: Acute change cognition and strength S/P fall TECHNIQUE: Imaging protocol: Computed tomography of the head without contrast. COMPARISON: CT HEAD WO 03/20/2024 1:52 PM FINDINGS: Brain: Normal. No hemorrhage. Unremarkable white matter. No mass effect. Cerebral ventricles: No ventriculomegaly. Paranasal sinuses: Visualized sinuses are unremarkable. No fluid levels. Mastoid air cells: Visualized mastoid air cells are well aerated. Bones: Unremarkable. No acute fracture. Soft tissues: Unremarkable. IMPRESSION: No acute intracranial abnormality. Dictated and Authenticated by: Chris Guadarrama MD. Ordering:SEUN Browne MD
[2024-03-22 09:11] LABS: HGB 18.7 g/dL (11.2-15.7); MCH 34.9 pg (27.0-33.0); MCHC 34.6 % (32.0-36.0); MCV 101 fL (80-95); MPV 10.5 fL (8.0-11.0); RBC 5.36 10^6/uL (3.93-5.22); RDW 15.3 % (11.7-14.6); RDW-SD 57.4 fL; WBC 3.73 10^3/uL (4.4-10.8)
[2024-03-22] MEDS: Lactated Ringers 1,000 ML 1000 ML IV ×2 (09:20→11:54)
[2024-03-22] MEDS: VANCOMYCIN 500 MG in Normal Saline 100 ML 100 MG IVPB (09:39)
[2024-03-22 09:55] LABS: ALT 58 U/L (14-59); AST 48 U/L (15-37); Albumin 2.3 g/dL (3.4-5.0); Alkaline Phosphatase 303 U/L (46-116); Bilirubin, Direct 2.4 mg/dL (0.0-0.2); Bilirubin, Total 3.64 mg/dL (0.2-1.0); Calcium 9.3 mg/dL (8.5-10.1); Glucose 166 mg/dL (74-106); Total Protein 6.6 g/dL (6.4-8.2)
[2024-03-22 09:56] LABS: Anion Gap 10.5 mmol/L (3-11); BUN 83 mg/dL (7-18); CO2 26.5 mmol/L (21.0-32.0); CREATININE 1.4 mg/dL (0.55-1.02); Chloride 105 mmol/L (98-107); Estimated GFR 42.54 (mL/min/1.73m2); Potassium 5.2 mmol/L (3.5-5.1); Sodium 142 mmol/L (136-145)
[2024-03-22 10:35] LABS: Vancomycin, Random 11.4 ug/mL
[2024-03-22 10:37] LABS: Absolute Neutrophil Count 3.28 10^3/uL (1.2-6.7)
[2024-03-22 10:38] LABS: Absolute Basophil Count 0.07 10^3/uL (0.0-0.2); Absolute Eosinophil Count 0.04 10^3/uL (0.0-0.7); Absolute Monocyte Count 0.04 10^3/uL (0.1-0.8); Atypical Lymphocytes % 2 %
[2024-03-22 10:39] LABS: Diff Comment Manual Differential
[2024-03-22 10:40] LABS: Platelet Count 95 10^3/uL (130-400)
[2024-03-22 11:22] LABS: Lactate 4.5 mmol/L (0.6-1.4)
--- NOTE | 2024-03-22 12:27 | CMPROGNOTE_ITS ---
Date of service: 03/22/24 Time of Service: 12:27 Care Management Progress Note Progress Note Text Progress Note Text: Sunshine was lying in bed when CM attempted to meet with her. She does not engage in conversation but her eyes are open. She appears comfortable. Per nursing her has been sitting with her and stepped out a few moments ago to go for a walk. Sunshine is not improving medically and is accepted to [facility], pending bed availability per Hospitalist. CM will follow. Discharge Anticipated Barriers to Discharge: Bed availability Patient/Family Education Needs: Review discharge instructions, discuss Ask Me Three Transportation: EMS Plan: Patient is accepted in transfer to [facility], pending bed availability. Transportation will be coordinated by RN quality assurance supervisor final. CM will follow. SDOH(Care Management) Screening Will the Patient Participate in the Screening?: Yes Do you worry about having a steady place to live?: yes Problems where you live: no known problems In the past 12 months, have you had to go without electric, gas, oil or water in your home?: no Have you or anyone in your house had to go without enough food to eat?: no Has lack of transportation kept you from medical appointments or from doing things needed for daily living?: no Has anyone in your support network made you feel unsafe for any reason?: no Social Determinants of Health Comments(SDOH Details): independently wealthy with all the amenities, home [place] the [place], helicopter pad, jet... per Health Related Social Needs Health related social needs: housing instability, housed, with risk of homelessness(Z59.811) Health related social needs details: none
[2024-03-22 12:45] LABS: Lactate 4.03 mmol/L (0.9-1.7)
[2024-03-22 13:25] LABS: Abs Immature Grans 0.24 10^3/uL (0.0-0.06); Absolute Basophil Count 0.02 10^3/uL (0.0-0.2); HCT 30.6 % (36.0-46.0); HGB 10.5 g/dL (11.2-15.7); MCH 35.2 pg (27.0-33.0); MCHC 34.3 % (32.0-36.0); MCV 103 fL (80-95); MPV 10.5 fL (8.0-11.0); Platelet Count 152 10^3/uL (130-400); RBC 2.98 10^6/uL (3.93-5.22); RDW 15.3 % (11.7-14.6); RDW-SD 57.8 fL
[2024-03-22] MEDS: Lactated Ringers 1,000 ML 75 ML IV (13:30)
--- NOTE | 2024-03-22 13:40 | DSE_ITS ---
Date of service: 03/22/24 Time of Service: 12:30 DS: Diagnosis Discharge Diagnosis (1) Septic shock due to Staphylococcus aureus: Status: Acute (2) Sepsis: Status: Acute (3) Gram-positive cocci bacteremia: Status: Acute (4) Syncope: Status: Chronic (5) Encephalopathy: Status: Acute (6) LOLITA (acute kidney injury): Status: Acute (7) Hyponatremia: Status: Acute (8) Acute hypoxic respiratory failure: Status: Acute (9) Leukocytosis: Status: Acute (10) Hyperkalemia: Status: Acute (11) Fall: Status: Acute (12) Hx pulmonary embolism: Status: Acute (13) History of malignant neoplasm of breast: Status: Acute Discharge Plan Disposition Patient Disposition: Transfer-Acute Inpatient Care Specific Acute Inpt Facility: [facility] Condition: Deteriorating Discharge Details Reason For Visit: LOLITA, Leukocytosis, Orthostasis, Dehydration Admit Date/Time: 03/20/24 16:32 Admit Provider: Kali Farias Attending Provider: Kali Farias Primary Care Provider: Unknown,Unknown Hospital Course Hospital Course: This 64-year-old female with a past medical history of metastatic breast cancer undergoing chemotherapy followed by [facility], pulmonary emboli on Eliquis, past history of resolved jirovocii pneumonia presented today in the ED at [facility] status post fall at home. The patient reporting falling from the toilet and hitting her left forehead without loss of consciousness. Workup in the ED included head CT which was negative for bleed, creatinine was 1.6 with a baseline of 0.7 BUN was 89 with a previous level of 24, sodium was 129 and potassium 5.5. EKG completed in the ED showed sinus rhythm heart rate 82 without ectopies or significant ischemia or injury. Leukocytosis noted with WBC of 16.95, and blood cultures were obtained and pending. In the ED the patient was treated with 1 L of crystalloid. During that time to ambulate to the bathroom the patient had another orthostatic episode and became unresponsive with new oxygen requirement. The ED provider consulted [facility] oncology but the patient was declined due to capacity. The hospitalist was consulted and the patient admitted to the medical surgical floor for evaluation and management of LOLITA, dehydration, hyponatremia, hyperkalemia, orthostasis and leukocytosis. The patient has a history of ascites but none seen at this time the SBP was not an immediate possibility at this time. When met in the ED, the patient was tremulous and reported ongoing tremors worsening the past few days. She also reported completing her last dose of dexamethasone on Tuesday. The patient denied dizziness while lying in the stretcher but lightheadedness upon standing. The patient which denies nausea vomiting diarrhea or dysuria. The patient reported ongoing constipation and has not had not used her bowel management medicine as usual. The patient confirmed that she would not want CPR and short-term intubation during hospitalization; thus the patient was full code. During the stay, the patient was treated with IV crystalloid with sodium increasing from 1 29 to 1 40 therefore D5W was initiated with sodium remaining around 140 over the first 24 hours. LR IV was reinstated with no improvement in BUN and creatinine remaining this morning respectively at 1.4 and 83. The patient was treated with oral lactulose due to ammonia level at 81 and increased signs and symptoms of encephalopathy without major improvement in alertness and responsiveness. Blood culture drawn on 03/20/2024 grew staphylococcus aureus in 4 out of 4 bottles on 03/21/2024 and vancomycin was initiated; unable to specify if it is MRSA as per lab this morning. Lactic acid was drawn and is 4.03, the patient is experiencing increased tachycardia with heart rate at 106 sinus rhythm as well as tachypnea at 25 respiration per minute blood pressure remains around 130s/70s but was around 160/80's on admit. Blood cultures no from the port showed no growth at 24 hours. Lactic acid remained above 4 despite 2 L of LR bolus today. The patient continued to receive maintenance lactated Ringer's. Lactulose enema was ordered as the patient was not able to take oral lactulose. Leukopenia at 1.9 was observed but ANC was still 1.48. Platelets went from 95-1 52. Coags values were normal except for INR 1.1 PT of 11.8 . Oncology at [facility] was consulted on 03/21/2024 and then the patient was accepted on 03/22/[address] Sadi Flores for transfer to [facility]. Infectious disease Dr. Ferrell was consulted on 03/21/2024 and initial gram- positive bacteremia management in this immunosuppressed patient was discussed; atovaquone for prophylaxis in the setting of jerovicii pneumonia was resumed following consultation. Daily oral. Case later discussed with Dr. Villatoro at from [facility] intensive care without the need to upgrade the patient to an ICU level of care at this time. The patient accepted by Dr. Lopez and will be transferred to [facility]. Blood culture not drawn on 03/22/2024 as the patient was accepted by [facility] this morning. Urology was consulted due to a difficult indwelling urinary catheter insertion resulting in successful insertion. Discussed with Dr. Farias Home Meds and New Rx's Prescriptions: No Action Eliquis 2.5 mg tablet 2.5 mg PO BID spironolactone 100 mg tablet 400 mg PO DAILY gabapentin 300 mg capsule 300 mg PO BID gabapentin 600 mg tablet 600 mg PO QHS venlafaxine [Effexor XR] 75 mg capsule,extended release 24hr 75 mg PO DAILY atovaquone 750 mg/5 mL suspension 1,500 mg PO DAILY Patient Comments: TAKE 10 ML BY MOUTH DAILY furosemide 20 mg tablet 40 mg PO DAILY Patient Comments: TAKE 2 TABLETS BY MOUTH DAILY Discharge Instructions Activity:: Activity as Tolerated Equipment/Supplies:: No Equipment Needed Diet:: As Tolerated Discharge Orders Discharge Orders: Discharge Order (Routine); Ordered 03/22/24 Ordered By: Annalisa Shahid DS: Summary Time Spent with Patient providing and/or coordinating discharge services: Greater than 30 minutes Status at Discharge Functional status at discharge: bed bound Overall status at discharge: patient is not back to baseline Mental Status: other Speech and Movement: other Mood: other Affect: anxious affect Quality:SDOH Health Related Social Needs: Health related social needs housing instability, house d, with risk of homelessness(Z59.811) Health related social needs details none Health related social needs details: none Exam Narrative Exam Narrative: Constitutional Ill appearing female patient cachectic appearing,less tremulous than prior slightly anxious, encephalopatic appearing, verbal answers remained delayed but adequate. HENMT: Facial structures are emaciated but normal Eyes: Well aligned, PEERLA 7 on ambient light Neuro:lethargic, non-focal, responsive to light tactile stimuli, non- verbal, moans Resp:Clear lung bilaterally Cardio: ST 106 as per tele, regular rhythm, S1, S2, no murmur, bilateral radial and dorsalis pedis pulses are positive, palpable GI: Abdomen is not distended , slightly bloated w/o ascites wave, soft and non tender, bowel sounds are present Integumentary: Scattered bruising and scabbing on limbs; left forehead bruise is stable Extremities: Generalized weakness Psych: RASS -1, anxious mood and affect. Psych Mental Status: other Speech and Movement: other Mood: other Affect: anxious affect DS: Data Vitals/I&O Vitals and I&O: Vital Signs Temperature 36.6 C 03/22/24 08:01 Temperature Source Temporal Artery Scan 03/22/24 01:30 Pulse 99 H 03/22/24 11:31 Pulse 98 H 03/22/24 11:31 Respiratory Rate 16 03/22/24 11:31 Respiratory Effort Normal, Non-Labored 03/20/24 18:34 Respiratory Depth Normal 03/20/24 18:34 Respiratory Pattern Normal 03/20/24 18:34 Blood Pressure 140/60 03/22/24 11:31 Blood Pressure Mean 82 03/22/24 11:31 Blood Pressure Position Supine 03/20/24 18:34 Pulse Oximetry 98 03/22/24 11:31 Oxygen Delivery Method Room Air 03/20/24 18:34 Oxygen Flow Rate 0 03/20/24 18:34 Pain Level 0 03/20/24 18:34 Intake & Output 03/21/24 03/22/24 03/22/24 23:59 11:59 23:59 Intake Total 556.667 / 1648.334 Balance 556.667 / 698.334 Weight 44.2 kg Intake: IV 556.667 / 1648.334 Other: Urine Odor Strong Comment Unmeasured incontinent void. guess about 300 out , urine was mixed with stool Stool Size Moderate Small Stool Characteristics Hard Soft Liquid Liquid Data Completed and Pending Labs on day of discharge: Labs from last 24 hours 03/22/24 03/22/24 03/22/24 Unknown 13:05 11:09 WBC Pending RBC Pending Hgb Pending Hct Pending MCV Pending MCH Pending MCHC Pending RDW Pending Plt Count Pending MPV Pending Immature Gran % Pending Neutrophils % Pending Lymphocytes % Pending Atypical Lymphs % Monocytes % Pending Eosinophils % Pending Basophils % Pending Nucleated RBC % Absolute Neutrophils Pending Absolute Lymphocytes Pending Absolute Monocytes Pending Absolute Eosinophils Pending Absolute Basophils Pending PT Pending INR Pending APTT Pending Fibrinogen Pending D-Dimer Pending VBG Lactate Pending 4.5 H* Sodium Pending Potassium Pending Chloride Pending Carbon Dioxide Pending Anion Gap Pending BUN Pending Creatinine Pending Est GFR (CKD-EPI 2020) Pending Glucose Pending Calcium Pending Total Bilirubin Pending Conjugated Bilirubin AST Pending ALT Pending Alkaline Phosphatase Pending Total Protein Pending Albumin Pending Urine Osmolality Random Vancomycin 03/22/24 03/22/24 03/21/24 08:39 06:00 21:55 WBC 3.73 L RBC 5.36 H Hgb 18.7 H D Hct 54.0 H MCV 101 H MCH 34.9 H MCHC 34.6 RDW 15.3 H Plt Count 95 L D MPV 10.5 Immature Gran % 0.0 Neutrophils % 88.0 Lymphocytes % 6.0 Atypical Lymphs % 2 Monocytes % 1.0 Eosinophils % 1.0 Basophils % 2.0 Nucleated RBC % 0.0 Absolute Neutrophils 3.28 Absolute Lymphocytes 0.30 L Absolute Monocytes 0.04 L Absolute Eosinophils 0.04 Absolute Basophils 0.07 PT INR APTT Fibrinogen D-Dimer VBG Lactate 4.03 H* Sodium 142 Potassium 5.2 H Chloride 105 Carbon Dioxide 26.5 Anion Gap 10.5 BUN 83 H* Creatinine 1.4 H Est GFR (CKD-EPI 2020) 42.54 Glucose 166 H Calcium 9.3 Total Bilirubin 3.64 H Conjugated Bilirubin 2.4 H AST 48 H ALT 58 Alkaline Phosphatase 303 H Total Protein 6.6 Albumin 2.3 L Urine Osmolality Random Vancomycin 11.4 17.2 03/21/24 03/21/24 03/21/24 18:10 14:43 12:10 WBC RBC Hgb Hct MCV MCH MCHC RDW Plt Count MPV Immature Gran % Neutrophils % Lymphocytes % Atypical Lymphs % Monocytes % Eosinophils % Basophils % Nucleated RBC % Absolute Neutrophils Absolute Lymphocytes Absolute Monocytes Absolute Eosinophils Absolute Basophils PT INR APTT Fibrinogen D-Dimer VBG Lactate Sodium 141 140 Potassium 4.7 4.7 Chloride 102 102 Carbon Dioxide 30.0 28.1 Anion Gap 9.0 9.9 BUN 78 H 83 H* Creatinine 1.3 H 1.4 H Est GFR (CKD-EPI 2020) 46.49 42.54 Glucose 193 H 182 H Calcium 9.3 9.2 Total Bilirubin Conjugated Bilirubin AST ALT Alkaline Phosphatase Total Protein Albumin Urine Osmolality 580 Random Vancomycin 03/21/24 15:00 Blood Blood Culture - Pending 03/21/24 14:43 Blood Blood Culture - Pending Preliminary micro results at discharge 03/20/24 15:25 Blood Culture - Preliminary Blood Staphylococcus Aureus 03/20/24 15:15 Blood Culture - Preliminary Blood Staphylococcus Aureus 03/21/24 15:00 Blood Culture - Pending Blood 03/21/24 14:43 Blood Culture - Pending Blood PFSH All Active Problems (Updated 03/22/24 @ 17:48 by Annalisa Shahid APRN) Septic shock due to Staphylococcus aureus (Acute) Encephalopathy (Acute) Sepsis (Acute) Gram-positive cocci bacteremia (Acute) History of malignant neoplasm of breast (Acute) Acute hypoxic respiratory failure (Acute) Hyponatremia (Acute) Hyperkalemia (Acute) Leukocytosis (Acute) Hx pulmonary embolism (Acute) Syncope (Chronic) Fall (Acute) Anticoagulated (Acute) Breast cancer metastasized to multiple sites (Acute) LOLITA (acute kidney injury) (Acute) Social History Smoking risk assessment performed?: No Alcohol Intake: never Housing: house Do you feel safe at home: Yes Do you feel safe in your relationship?: Yes Time Spent with Patient Time Spent with Patient: >85 minutes Time was spent: preparing to see the patient(eg.review tests), obtaining and/or reviewing separately otained hiistory, ordering medications,tests, procedures, referring, communicating with other health congregational care pastor, indepentently interpreting results, counseling the patient, care coordination and other (Transfer to tertiary center)
[2024-03-22 13:48] LABS: INR 1.2 (0.9-1.1); Prothrombin Time 11.8 sec (9.1-11.1)
--- NOTE | 2024-03-22 13:57 | CHAPLAIN ---
Sendy has been opening her eyes now and then, seems to be in some pain, and not totally responsive. Her , Nitish, is with her. They are waiting for a bed to open up at [facility] and she'll be transferred there. Sendy and Nitish are from the [facility], so Sendy has received most of her cancer treatments at [facility]. Nitish seems grateful to hear that the transfer would happen as soon as a bed opens up. Yesterday [facility] did not agree to a transfer and said Sendy could receive the necessary care here. Nitish talked about being angry with God and how others, good people in Sendy's family have been taken already. Nitish said he was raised [employer] but then pursued his own believes and believes that everyone is loved by God wether they attend advent or not, sin or not. I will continue to visit.
[2024-03-22 13:58] LABS: Lactate 4.46 mmol/L (0.9-1.7)
[2024-03-22 13:59] LABS: D-Dimer 445 ng/mlFEU (<500)
[2024-03-22 14:02] LABS: ALT 50 U/L (14-59); AST 51 U/L (15-37); Albumin 1.8 g/dL (3.4-5.0); Alkaline Phosphatase 240 U/L (46-116); BUN 79 mg/dL (7-18); Bilirubin, Total 3.53 mg/dL (0.2-1.0); CREATININE 1.4 mg/dL (0.55-1.02); Calcium 8.6 mg/dL (8.5-10.1); Chloride 108 mmol/L (98-107); Estimated GFR 42.54 (mL/min/1.73m2); Glucose 150 mg/dL (74-106); Potassium 5.1 mmol/L (3.5-5.1); Sodium 143 mmol/L (136-145); Total Protein 5.3 g/dL (6.4-8.2)
[2024-03-22 14:10] LABS: Absolute Lymphocyte Count 0.34 10^3/uL (1.2-3.4); Absolute Neutrophil Count 1.48 10^3/uL (1.2-6.7); Atypical Lymphocytes % 3 %
[2024-03-22 14:11] LABS: Absolute Eosinophil Count 0.02 10^3/uL (0.0-0.7); Absolute Monocyte Count 0.06 10^3/uL (0.1-0.8); Diff Comment Manual Differential; RBC Morphology Normal
[2024-03-22] MEDS: HYDROmorphone 2 MG/ML VIAL IVP (15:06)
[2024-03-22 15:49] LABS: Fibrinogen (Stat) (Littleton) 310 mg/dL (208-434)
--- NOTE | 2024-03-22 16:53 | UCONE_ITS ---
Date of service: 03/22/24 Time of Service: 16:53 Assessment and Plan Assessment and plan (1) Encephalopathy: Status: Acute Assessment and plan: The catheter was successfully placed and can be removed at the discretion of the medical service. History of Present Illness History of Present Illness Chief Complaint: Catheter placement Narrative: This is a 63-year-old woman who is currently hospitalized with encephalopathy. Dumont catheter has been requested for I and O. The staff has not been able to place a catheter so I have been asked to do so Review of Systems Unobtainable due to mental status PFSH All Active Problems (Updated 03/23/24 @ 00:05 by ALVARO FISHER) Septic shock due to Staphylococcus aureus (Acute) Encephalopathy (Acute) Sepsis (Acute) Gram-positive cocci bacteremia (Acute) History of malignant neoplasm of breast (Acute) Acute hypoxic respiratory failure (Acute) Hyponatremia (Acute) Hx pulmonary embolism (Acute) Syncope (Chronic) Fall (Acute) Anticoagulated (Acute) Breast cancer metastasized to multiple sites (Acute) LOLITA (acute kidney injury) (Acute) Medical History (Updated 03/23/24 @ 00:05 by ALVARO FISHER) Hyperkalemia Leukocytosis Social History Smoking risk assessment performed?: No Alcohol Intake: never Housing: house Do you feel safe at home: Yes Do you feel safe in your relationship?: Yes Results Last Vital Signs Temp 36.6 C 03/22/24 08:01 Pulse 101 H 03/22/24 14:31 Resp 15 03/22/24 14:31 BP 151/63 H 03/22/24 14:31 Pulse Ox 99 03/22/24 14:31 Labs 03/22/24 13:05 03/22/24 13:05 Labs: Laboratory Results - last 24 hr 03/21/24 03/21/24 03/21/24 12:10 18:10 21:55 WBC RBC Hgb Hct MCV MCH MCHC RDW Plt Count MPV Immature Gran % Neutrophils % Lymphocytes % Atypical Lymphs % Monocytes % Eosinophils % Basophils % Nucleated RBC % Absolute Neutrophils Absolute Lymphocytes Absolute Monocytes Absolute Eosinophils Absolute Basophils RBC Morphology PT INR APTT Fibrinogen D-Dimer VBG Lactate Sodium 141 Potassium 4.7 Chloride 102 Carbon Dioxide 30.0 Anion Gap 9.0 BUN 78 H Creatinine 1.3 H Est GFR (CKD-EPI 2020) 46.49 Glucose 193 H Calcium 9.3 Total Bilirubin Conjugated Bilirubin AST ALT Alkaline Phosphatase Total Protein Albumin Urine Osmolality 580 Random Vancomycin 17.2 03/22/24 03/22/24 03/22/24 06:00 08:39 11:09 WBC 3.73 L RBC 5.36 H Hgb 18.7 H D Hct 54.0 H MCV 101 H MCH 34.9 H MCHC 34.6 RDW 15.3 H Plt Count 95 L D MPV 10.5 Immature Gran % 0.0 Neutrophils % 88.0 Lymphocytes % 6.0 Atypical Lymphs % 2 Monocytes % 1.0 Eosinophils % 1.0 Basophils % 2.0 Nucleated RBC % 0.0 Absolute Neutrophils 3.28 Absolute Lymphocytes 0.30 L Absolute Monocytes 0.04 L Absolute Eosinophils 0.04 Absolute Basophils 0.07 RBC Morphology PT INR APTT Fibrinogen D-Dimer VBG Lactate 4.03 H* 4.5 H* Sodium 142 Potassium 5.2 H Chloride 105 Carbon Dioxide 26.5 Anion Gap 10.5 BUN 83 H* Creatinine 1.4 H Est GFR (CKD-EPI 2020) 42.54 Glucose 166 H Calcium 9.3 Total Bilirubin 3.64 H Conjugated Bilirubin 2.4 H AST 48 H ALT 58 Alkaline Phosphatase 303 H Total Protein 6.6 Albumin 2.3 L Urine Osmolality Random Vancomycin 11.4 03/22/24 03/22/24 13:05 13:45 WBC 1.90 L* RBC 2.98 L Hgb 10.5 L D Hct 30.6 L MCV 103 H MCH 35.2 H MCHC 34.3 RDW 15.3 H Plt Count 152 D MPV 10.5 Immature Gran % See Differential Neutrophils % 78.0 Lymphocytes % 15.0 Atypical Lymphs % 3 Monocytes % 3.0 Eosinophils % 1.0 Basophils % 1.0 Nucleated RBC % 0.0 Absolute Neutrophils 1.48 Absolute Lymphocytes 0.34 L Absolute Monocytes 0.06 L Absolute Eosinophils 0.02 Absolute Basophils 0.02 RBC Morphology Normal PT 11.8 H INR 1.2 H APTT 25.0 Fibrinogen 310 D-Dimer 445 VBG Lactate 4.46 H* Sodium 143 Potassium 5.1 Chloride 108 H Carbon Dioxide 26.0 Anion Gap 9.0 BUN 79 H Creatinine 1.4 H Est GFR (CKD-EPI 2020) 42.54 Glucose 150 H Calcium 8.6 Total Bilirubin 3.53 H Conjugated Bilirubin AST 51 H ALT 50 Alkaline Phosphatase 240 H Total Protein 5.3 L Albumin 1.8 L Urine Osmolality Random Vancomycin Insert Bladder Catheter Text: The patient was seen in the intensive care unit. She was placed in the frog-leg position. Her genitalia was prepped. Pelvic examination showed a palpable urethral meatus although I was not able to visualize it. The genitalia was prepped with Betadine. 2% Xylocaine jelly was instilled into the urethral meatus. I was then able to pass a 14 [place] coud? tipped catheter through the urethra into the bladder. The catheter balloon was inflated with 10 cc of sterile water. Approximately 30 cc of clear urine was obtained. The catheter was then hooked to gravity drainage.
== END 2024-03-22 18:35 | disposition short-term general hospital (02) | DRG 871 ==
LOC: ER 17:27 → ICU 03-21 10:13
PROVIDERS: Nurse Practitioner Acute Care; Admitting Provider Family Medicine; Emergency Provider Emergency Medicine; Visit Provider Family Medicine
DX: J96.01 Acute respiratory failure with hypoxia (principal); R65.21 Severe sepsis with septic shock; N17.0 Acute kidney failure with tubular necrosis; E87.1 Hypo-osmolality and hyponatremia; G93.40 Encephalopathy, unspecified; C78.7 Secondary malignant neoplasm of liver and intrahepatic bile duct; R64 Cachexia; D84.821 Immunodeficiency due to drugs; C79.51 Secondary malignant neoplasm of bone; A41.01 Sepsis due to Methicillin susceptible Staphylococcus aureus; Z68.1 Body mass index [BMI] 19.9 or less, adult; E87.5 Hyperkalemia; Z86.711 Personal history of pulmonary embolism; Z85.3 Personal history of malignant neoplasm of breast; W18.12XA Fall from or off toilet with subsequent striking against object, initial encounter; R53.1 Weakness; E86.0 Dehydration; I95.1 Orthostatic hypotension; R25.1 Tremor, unspecified; Z79.69 Long term (current) use of other immunomodulators and immunosuppressants; Z95.828 Presence of other vascular implants and grafts; R74.01 Elevation of levels of liver transaminase levels; Z79.01 Long term (current) use of anticoagulants; Z87.01 Personal history of pneumonia (recurrent)
CPT/HCPCS: 51702; 00123; 36410; 36591; 74177; 80048; 80053; 80076; 83690; 83935; 85384; 87040; 87077; 93005; 97163; 97530; 99222; 99285; 70450; 71260; 80202; 81003; 82140; 83605; 83735; 84300; 85025; 85379; 85610; 85730; 87186; 93010; 93306; 99223; 99233; 99239; J1171; J3370; J3490; J7060

== ENCOUNTER → 2024-03-22 11:50 | Outpatient (BNVA) | payer MEDICARE, SELFPAY | PROVIDERS: Visit Provider Urology ==